=== PATIENT | male | born 1970 | race Caucasian/White ===

== ENCOUNTER 2017-11-19 17:45 | Inpatient (IN) | payer MEDICARE, SELFPAY ==
[2017-11-19] VITALS (14 sets, daily range): BP systolic 142–222; BP diastolic 83–131; PULSE 84–100; RESP 13–20; TEMP 36.9–37; O2SAT 95–100; BMI 32.8; BMI 32.9; BMI 33.0
--- NOTE | 2017-11-19 18:03 | CT_ITS ---
STUDY: CT BRAIN WITHOUT CONTRAST REASON FOR EXAM: Male, 46 years old. Headache and ringing in ears. RADIATION DOSAGE (If Supplied By Facility): CTDIvol = ( 44.99 ) mGy, DLP = ( 796.11 ) mGycm TECHNIQUE: Transaxial CT imaging of the brain was performed without administration of intravenous contrast material. Multiplanar reformations are submitted for interpretation. Individualized dose optimization techniques were used for this CT. COMPARISON: CT the head dated July 15, 2013. FINDINGS: There is radiopaque substance within the left globe, similar to the previous CT. The right orbit has a normal appearance. Normal calvarium. There is mild cerebral atrophy with widening of the extra-axial spaces and ventricular dilatation. There are areas of decreased attenuation within the white matter tracts of the supratentorial brain, consistent with microvascular disease changes. Normal basal ganglia and thalami. Normal brainstem. Normal cerebellum. There is no intracranial hemorrhage. There is patchy atherosclerotic calcification of intracranial arteries. There is mild mucoperiosteal thickening within the maxillary sinuses. CT/Brain/Head without Contrast IMPRESSION: 1. Chronic involutional changes of the brain. 2. No CT evidence of acute intracranial hemorrhage. Electronically Signed: Neli Mariscal MD at 19:08 EDT , Service support ,
--- NOTE | 2017-11-19 18:03 | EKG12_ITS ---
Test Reason : HTN Blood Pressure : / mmHG Vent. Rate : 097 BPM Atrial Rate : 097 BPM P-R Int : 174 ms QRS Dur : 102 ms QT Int : 380 ms P-R-T Axes : 042 -12 064 degrees QTc Int : 482 ms Sinus rhythm with frequent Premature ventricular complexes Otherwise normal ECG Confirmed by IBRAHIMA NORTON, MITCHELL ([id number]), subeditor TOBY WATSON ([id number]) on 11/22/2017 1:31:44 PM Referred By: KEESHA Confirmed By:MITCHELL ALEXANDRA MD
[2017-11-19] MEDS: Metoprolol Tartrate 25 MG Tablet PO (18:21)
[2017-11-19 18:23] LABS: Absolute Lymphocyte Count 1.38 X10^3/ul (0.83-4.51); Absolute Neutrophil Count 3.6 X10^3/uL (2.0-7.7); Basophil# 0.02 X10^3/uL; Basophil% 0.4 % (0-1); Eosinophil# 0.03 X10^3/uL; Eosinophils% 0.6 % (0-5); Hematocrit 32.9 % (40-54); Hemoglobin 11.7 g/dl (13.0-16.5); Lymphocyte # 1.38 X10^3/ul (4.0); Lymphocyte % 26.3 % (19-41); Mean Corp Hgb Conc 35.6 g/gl (32-36); Mean Corpuscular Hgb 29.3 pg (27.0-32.0); Mean Corpuscular Volume 82.3 fL (80-94); Mean Platelet Vol. 9.1 fl (6.2-12.0); Monocyte# 0.24 X10^3/uL; Monocyte% 4.6 % (0-10); Neutrophil # 3.57 X10^3/uL (2.7-7.7); Neutrophil % 68.1 % (47-70); POSITIVE COUNT NO; POSITIVE DIFFERENTIAL NO; POSITIVE MORPHOLOGY NO; Platelet Count 203 K/mm3 (150-450); RBC Distribution Width CV 12.6 % (11.6-14.6); RBC Distribution Width SD 37.9 fl (35.1-43.9); White Blood Count 5.2 K/mm3 (4.4-11.0)
[2017-11-19 18:26] LABS: Bedside Glucose 363 mg/dL (70-110)
--- NOTE | 2017-11-19 18:30 | RAD_ITS ---
STUDY: X-RAY CHEST REASON FOR EXAM: Male, 46 years old. Hypertension. TECHNIQUE: Single AP portable view of the chest. COMPARISON: April 23, 2014. FINDINGS: Cardiac monitoring leads are present. The lungs are expanded. There is mild interstitial thickening present in both lungs. There is no demonstrated pleural abnormality. Normal size heart. There are calcified mediastinal and hilar lymph nodes. There is prominence of the pulmonary hilar arteries with peripheral pulmonary vascular congestion. There is atherosclerotic tortuosity of the aortic arch and descending thoracic aorta. Normal visualized thoracic spine. Normal visualized ribs, clavicles, and shoulders. There is no demonstrated abnormality of the visualized soft tissue structures of the upper abdomen. RAD/Chest 1 View IMPRESSION: Mild pulmonary congestion. Differential considerations include acute exacerbation of reactive airway disease or viral infection. Electronically Signed: Neli Mariscal MD at 19:19 EDT , Service support ,
[2017-11-19] MEDS: Lisinopril 40 MG Tablet PO (18:40)
[2017-11-19 18:45] LABS: Anion Gap 6 (5-15); BUN 37 mg/dL (7-18); Chloride 106 mmol/L (98-107); Creatinine, Serum 2.47 mg/dL (0.70-1.30); EST Glomerular Filtration Rate 30 mL/min (>60); Est Glom Filt Rate - Afr Amer 36 mL/min (>60); Estimated Creatinine Clearance 35.38 ml/min; Glucose 359 mg/dL (74-106); Potassium 3.4 mmol/L (3.5-5.1); Sodium Level 140 mmol/L (136-145)
[2017-11-19 19:31] LABS: Bedside Glucose 281 mg/dL (70-110)
--- NOTE | 2017-11-19 19:49 | PCM.HP.STD ---
Problem List (1) HTN (hypertension) Status: Chronic Qualifiers: Hypertension type: essential hypertension Qualified Code(s): I10 - Essential (primary) hypertension (2) HLD (hyperlipidemia) Status: Chronic Qualifiers: Hyperlipidemia type: unspecified Qualified Code(s): E78.5 - Hyperlipidemia, unspecified (3) Blind left eye Status: Chronic (4) Diabetes mellitus type II, uncontrolled Status: Chronic Qualifiers: Diabetes mellitus web programmer insulin use: with web programmer use Diabetes mellitus complication status: with unspecified complications Qualified Code(s): E11.8 - Type 2 diabetes mellitus with unspecified complications; E11.65 - Type 2 diabetes mellitus with hyperglycemia; Z79.4 - skilled nursing (current) use of insulin (5) Neuropathy Status: Chronic (6) Obesity (BMI 30.0-34.9) Status: Chronic (7) Anxiety and depression Status: Chronic (8) GERD (gastroesophageal reflux disease) Status: Chronic Qualifiers: Esophagitis presence: esophagitis presence not specified Qualified Code(s): K21.9 - Gastro-esophageal reflux disease without esophagitis (9) Chewing tobacco nicotine dependence Status: Chronic Qualifiers: Substance use status: unspecified nicotine-induced disorder Qualified Code(s): F17.229 - Nicotine dependence, chewing tobacco, with unspecified nicotine-induced disorders (10) Hypertensive emergency Status: Acute (11) CHF (congestive heart failure) Status: Acute Qualifiers: Heart failure type: unspecified Heart failure chronicity: acute Qualified Code(s): I50.9 - Heart failure, unspecified (12) ILDA (acute kidney injury) Status: Acute (13) CKD (chronic kidney disease) stage 3, GFR 30-59 ml/min Status: Chronic History of Present Illness Date of Admission: 11/19/17 Chief Complaint: Exertional Dyspnea, LE Edema, Fatigue, Elevated BP, Headaches The patient is a 46 y/o M w/ PMHx: HTN, HLD, Uncontrolled Diabetes mellitus type II with Neurology, CKD stage III (prior Cr 1.9), Chew Tobacco use, History of L Retinal Tear s/p attempted repair now Chronically Blind, Obesity, Anxiety and Depression, GERD who presents to the [facility] ED on 11/19/17 with history of ongoing uncontrolled blood pressures (~200/100 frequently), elevated BS (300-400 range), headaches, vision changes, ringing BL ears intermittently, worsened over the last week in addition to BL LE pitting edema to his knees, weight gain and exertional dyspnea and orthopnea worsening over the last ~ 1 week. He admits to not taking his medications and not following a diabetic diet. He notes recently being at his PCP office. In the ED work-up included AF, HR 80s, BP 205/121-->190/112 after being given his home BB and lisinopril in the ED, RR 14, 100% on RA, CBC w/ WBC 5.2, HGB 11.7, Plts 203 without shift, BMP with K 3.4, BUN/Cr 37/2.47 (noted worsened fx 05/29/17 Cr 1.9), glucose 359, trop 0.03, EKG with SR with PVC, CT brain without acute findings, CXR with mild congestion. In the ED patient administered insulin aspart 10 u SC x 1, lisinopril 40 mg po x 1, metoprolol 25 mg po x 1, NS 2L x 1. Past Medical History Past Medical History (Chronic Problems): Chronic Problems HTN (hypertension) (Chronic) HLD (hyperlipidemia) (Chronic) Blind left eye (Chronic) Diabetes mellitus type II, uncontrolled (Chronic) Neuropathy (Chronic) Obesity (BMI 30.0-34.9) (Chronic) Anxiety and depression (Chronic) GERD (gastroesophageal reflux disease) (Chronic) Chewing tobacco nicotine dependence (Chronic) CKD (chronic kidney disease) stage 3, GFR 30-59 ml/min (Chronic) Leg edema, right (Chronic) Malnutrition (Chronic) Diabetes mellitus with neuropathy (Chronic) Type II diabetes mellitus (Chronic) History of acute myocardial infarction (Chronic) Allergies No Known Allergies Allergy (Verified 11/19/17 17:48) Home Medications: Ambulatory Orders Medication Instructions Recorded Gabapentin [Neurontin] 600 mg PO TIDCM 07/15/13 Insulin Glargine [Lantus SoloStar 75 units SC QHS 07/15/13 Pen] Amlodipine [Norvasc] 5 mg PO DAILY 05/06/17 Bupropion HCl [Wellbutrin Xl] 300 mg PO DAILY 05/06/17 Hydrochlorothiazide [Hctz] 25 mg PO DAILY 05/06/17 Insulin Aspart [Novolog Flexpen 15 units SC BIDCM 05/06/17 ([facility])] Lisinopril [Zestril] 40 mg PO DAILY 05/06/17 Aspirin 81 mg PO DAILY 11/19/17 Atorvastatin Calcium [Lipitor] 20 mg PO DAILY 11/19/17 Metoprolol Tartrate [Lopressor 25 mg PO BID 11/19/17 ([facility] el[facility])] Ranitidine [Zantac] 300 mg PO DAILY 11/19/17 Surgical History: - - Cholecystectomy, left retinal tear repair attempts, right eye laser surgery. Psychiatric History: Anxiety, Depression Lives: Spouse/ Significant Other Smoking Status: Never smoker Tobacco Use: Chew - 2-3 can/q 2 days. Alcohol: Rare Drugs: None - *Family History Maternal History Items: Heart Disease Paternal History Items: Cancer - Father w/ Colon CA. Review of Systems Constitutional: Reports: Malaise, Weakness, Fatigue. Denies: Chills, Fever, Weight Change HEENT: Reports: Head Aches, Hearing Changes, Visual Changes. Denies: Sinus Congestion, Sinus Drainage Cardiovascular: Reports: Edema, Orthopnea. Denies: Chest Pain, Palpitations Respiratory: Reports: Cough, Shortness of breath upon exertion. Denies: Shortness of breath at rest, Sputum production Gastrointestinal: Denies: Abdominal Pain, Nausea, Vomiting Genitourinary: Denies: Dysuria Musculoskeletal: Denies: Joint Pain, Joint Tenderness Skin: Denies: Rash, Wounds Neurological: Denies: Numbness, Tingling, Focal weakness Psychiatric: Reports: Anxiety, Depression. Denies: Homicidal Ideations, Suicidal Ideations Hematologic/ Lymphatic: Denies: Easy Bruising, Easy Bleeding VTE Information - Inpt Only VTE Present on Admission: No VTE Mechan Device Prophylaxis: SCD's VTE Pharm Prophylaxis ordered?: Yes Patient Problems: Active and Suspected Problems Hypertensive emergency (Acute) CHF (congestive heart failure) (Acute) ILDA (acute kidney injury) (Acute) Subjective: Seated upright in the ED bed, fatigued, NAD otherwise. Objective: Physical Examination: General: awake, alert, oriented x 3 and cooperative, seated upright in the ED bed in no apparent distress. Skin: normal color, turgor, no icterus, cyanosis. HEENT: AT/NC, EOMI, R pupil reactive, L eye blind, non-reactive, mildly dry MM, no carotid bruits, + JVD noted. Lungs: Diminished BS BL, > bases, moderate effort, minimal R>L bases crackles, no ronchi or wheezing. Heart: Regular rate and rhythm; no gallop, rub audible. Abdomen: soft, obese, NTTP, ND, normal BS, no HSM. Extremities: no cyanosis, clubbing, BL LE ankle to knee 2-3+ pitting edema. Neurological: patient awake, alert, oriented x 3; cognitive function intact; L pupil reactive to light; cranial nerves II-XII grossly normal aside noted L eye blindness, moving all 4 extremities, no focal deficits, strength moderately globally decreased secondary to acute presentation. Psychiatric: affect appears normal, no acute evidence of depressive or anxiety feelings. - Physical Exam Vital Signs Temp Pulse Resp BP Pulse Ox 98.6 F 87 17 207/97 H 100 11/19/17 17:46 11/19/17 19:46 11/19/17 19:46 11/19/17 19:46 11/19/17 19:46 Oxygen Flow Rate (L/min) 2 Oxygen Delivery Method Nasal Cannula Weight: 216 lb Body Mass Index (BMI) 32.8 Finger Stick Blood Glucose 281 Laboratory Tests Past 24 Hrs 11/19/17 11/19/17 18:15 18:15 WBC 5.2 RBC 4.00 L Hgb 11.7 L Hct 32.9 L MCV 82.3 MCH 29.3 MCHC 35.6 RDW 12.6 RDW Differential 37.9 Plt Count 203 MPV 9.1 Immature Gran % (Auto) 0.000 Neut % (Auto) 68.1 Lymph % (Auto) 26.3 [place] % (Auto) 4.6 Eos % (Auto) 0.6 Baso % (Auto) 0.4 Absolute Neuts (auto) 3.6 Absolute Lymphs (auto) 1.38 Total Counted Not Reportable Sodium 140 Potassium 3.4 L Chloride 106 Carbon Dioxide 28.0 Anion Gap 6 BUN 37 H Creatinine 2.47 H Estim Creat Clear Calc 35.38 Est GFR (MDRD) Af Amer 36 L Est GFR (MDRD) Non-Af 30 L BUN/Creatinine Ratio 15.0 Glucose 359 H Calcium 8.0 L Troponin I 0.03 POC Glucose 11/19/17 11/19/17 19:21 18:14 POC Glucose 281 H 363 H Assessment/Plan Active and Suspected Problems Hypertensive emergency (Acute) CHF (congestive heart failure) (Acute) ILDA (acute kidney injury) (Acute) The patient is a 46 y/o M w/ PMHx: HTN, HLD, Uncontrolled Diabetes mellitus type II with Neurology, CKD stage III , Chew Tobacco use, History of L Retinal Tear s/p attempted repair now Chronically Blind, Obesity, Anxiety and Depression, GERD who presents to the [facility] ED on 11/19/17 with history of ongoing uncontrolled blood pressures, elevated BS, headaches, vision changes, ringing BL ears intermittently, worsened over the last week in addition to BL LE pitting edema to his knees, weight gain and exertional dyspnea and orthopnea worsening over the last ~ 1 week. (1) Acute Decompensated CHF, Unclear type, secondary to Uncontrolled HTN, HTN emergency: CXR obtained in the ED w/ congestion. Given elevated BPs, admitted to the ICU in order to titrate regimen as noted, will maintain on cardiac telemetry obtain cardiac enzyme series, obtain serial EKGs, initiation and continue IV lasix diuresis, monitor I/Os, maintain on intake restriction, continue medical therapy w/ IV NG with titration as needed, asa, statin, holding ACEI, holding BB pending ECHO. Will obtain TSH and magnesium level. (2) Hypertensive Emergency: Acute CHF secondary to Acute Hypertensive Emergency: As noted, given severity of appearing, admitting to the ICU to initiate NG IV, titrate as needed, PRN hydralazine, defer BB pending improvement and ECHO, holding ACEI secondary to concurrent worsened renal disease secondary to HTN. (3) Acute kidney injury on CKD stage III Suspected per Labs: Secondary to #1,#2. Admission BUN/Cr 37/2.47, prior baseline creatinine noted to be 1.9 05/2017. Given secondary to uncontrolled HTN, hopefully expect improvement with improved HTN, as noted given 2L in the ED and ACEI home regimen, will hold on further hydration with diuresis as noted above, hold ACEI. If no improvement with treatment #1, #2, would plan FeNa assessment and renal US. (4) Diabetes mellitus type II, Uncontrolled with Neurology: Hold oral home regimen, alter home insulin regimen, change to 35 u levemir BID, likely increase as needed, HgbA1c pending, ADA diet, accu checks w/ ISS, nutrition consulted for education and teaching. (5) Hyperlipidemia: Continue home statin regimen. AM FLP. (6) Anxiety and Depression: Continue home psychiatric regimen. (7) GERD: Holding agent given worsened renal disease. (8) History of L Retinal Tear s/p attempted repair: Now blind L eye, stable. (9) Chew Tobacco use: Encouraged cessation, inpatient consultation per RT, NR if desired. (10) Obesity: Weight loss and lifestyle changes encouraged. (11) DVT Prophylaxis: SCDs, heparin. Code Visit Inpatient E&M: 00305 Init Hosp L3
--- NOTE | 2017-11-19 19:52 | HP.PCM_ITS ---
Problem List (1) HTN (hypertension) Status: Chronic Qualifiers: Hypertension type: essential hypertension Qualified Code(s): I10 - Essential (primary) hypertension (2) HLD (hyperlipidemia) Status: Chronic Qualifiers: Hyperlipidemia type: unspecified Qualified Code(s): E78.5 - Hyperlipidemia , unspecified (3) Blind left eye Status: Chronic (4) Diabetes mellitus type II, uncontrolled Status: Chronic Qualifiers: Diabetes mellitus nursing home insulin use: with nursing home use Diabetes mellitus complication status: with unspecified complications Qualified Code(s) : E11.8 - Type 2 diabetes mellitus with unspecified complications; E11.65 - Type 2 diabetes mellitus with hyperglycemia; Z79.4 - shelter (current) use of insulin (5) Neuropathy Status: Chronic (6) Obesity (BMI 30.0-34.9) Status: Chronic (7) Anxiety and depression Status: Chronic (8) GERD (gastroesophageal reflux disease) Status: Chronic Qualifiers: Esophagitis presence: esophagitis presence not specified Qualified Code(s) : K21.9 - Gastro-esophageal reflux disease without esophagitis (9) Chewing tobacco nicotine dependence Status: Chronic Qualifiers: Substance use status: unspecified nicotine-induced disorder Qualified Code( s): F17.229 - Nicotine dependence, chewing tobacco, with unspecified nicotine- induced disorders (10) Hypertensive emergency Status: Acute (11) CHF (congestive heart failure) Status: Acute Qualifiers: Heart failure type: unspecified Heart failure chronicity: acute Qualified Code(s): I50.9 - Heart failure, unspecified (12) ILDA (acute kidney injury) Status: Acute (13) CKD (chronic kidney disease) stage 3, GFR 30-59 ml/min Status: Chronic History of Present Illness Date of Admission: 11/19/17 Chief Complaint: Exertional Dyspnea, LE Edema, Fatigue, Elevated BP, Headaches The patient is a 46 y/o M w/ PMHx: HTN, HLD, Uncontrolled Diabetes mellitus type II with Neurology, CKD stage III (prior Cr 1.9), Chew Tobacco use, History of L Retinal Tear s/p attempted repair now Chronically Blind, Obesity, Anxiety and Depression, GERD who presents to the [facility] ED on 11/19/17 with history of ongoing uncontrolled blood pressures (~200/100 frequently), elevated BS (300- 400 range), headaches, vision changes, ringing BL ears intermittently, worsened over the last week in addition to BL LE pitting edema to his knees, weight gain and exertional dyspnea and orthopnea worsening over the last ~ 1 week. He admits to not taking his medications and not following a diabetic diet. He notes recently being at his PCP office. In the ED work-up included AF, HR 80s, BP 205/121-->190/112 after being given his home BB and lisinopril in the ED, RR 14, 100% on RA, CBC w/ WBC 5.2, HGB 11.7, Plts 203 without shift, BMP with K 3.4 , BUN/Cr 37/2.47 (noted worsened fx 05/29/17 Cr 1.9), glucose 359, trop 0.03, EKG with SR with PVC, CT brain without acute findings, CXR with mild congestion. In the ED patient administered insulin aspart 10 u SC x 1, lisinopril 40 mg po x 1, metoprolol 25 mg po x 1, NS 2L x 1. Past Medical History Past Medical History (Chronic Problems): Chronic Problems HTN (hypertension) (Chronic) HLD (hyperlipidemia) (Chronic) Blind left eye (Chronic) Diabetes mellitus type II, uncontrolled (Chronic) Neuropathy (Chronic) Obesity (BMI 30.0-34.9) (Chronic) Anxiety and depression (Chronic) GERD (gastroesophageal reflux disease) (Chronic) Chewing tobacco nicotine dependence (Chronic) CKD (chronic kidney disease) stage 3, GFR 30-59 ml/min (Chronic) Leg edema, right (Chronic) Malnutrition (Chronic) Diabetes mellitus with neuropathy (Chronic) Type II diabetes mellitus (Chronic) History of acute myocardial infarction (Chronic) Allergies No Known Allergies Allergy (Verified 11/19/17 17:48) Home Medications: Ambulatory Orders Medication Instructions Recorded Gabapentin [Neurontin] 600 mg PO TIDCM 07/15/13 Insulin Glargine [Lantus SoloStar 75 units SC QHS 07/15/13 Pen] Amlodipine [Norvasc] 5 mg PO DAILY 05/06/17 Bupropion HCl [Wellbutrin Xl] 300 mg PO DAILY 05/06/17 Hydrochlorothiazide [Hctz] 25 mg PO DAILY 05/06/17 Insulin Aspart [Novolog Flexpen 15 units SC BIDCM 05/06/17 ([facility])] Lisinopril [Zestril] 40 mg PO DAILY 05/06/17 Aspirin 81 mg PO DAILY 11/19/17 Atorvastatin Calcium [Lipitor] 20 mg PO DAILY 11/19/17 Metoprolol Tartrate [Lopressor 25 mg PO BID 11/19/17 ([facility] el[facility])] Ranitidine [Zantac] 300 mg PO DAILY 11/19/17 Surgical History: - - Cholecystectomy, left retinal tear repair attempts, right eye laser surgery. Psychiatric History: Anxiety, Depression Lives: Spouse/ Significant Other Smoking Status: Never smoker Tobacco Use: Chew - 2-3 can/q 2 days. Alcohol: Rare Drugs: None - *Family History Maternal History Items: Heart Disease Paternal History Items: Cancer - Father w/ Colon CA. Review of Systems Constitutional: Reports: Malaise, Weakness, Fatigue. Denies: Chills, Fever, Weight Change HEENT: Reports: Head Aches, Hearing Changes, Visual Changes. Denies: Sinus Congestion, Sinus Drainage Cardiovascular: Reports: Edema, Orthopnea. Denies: Chest Pain, Palpitations Respiratory: Reports: Cough, Shortness of breath upon exertion. Denies: Shortness of breath at rest, Sputum production Gastrointestinal: Denies: Abdominal Pain, Nausea, Vomiting Genitourinary: Denies: Dysuria Musculoskeletal: Denies: Joint Pain, Joint Tenderness Skin: Denies: Rash, Wounds Neurological: Denies: Numbness, Tingling, Focal weakness Psychiatric: Reports: Anxiety, Depression. Denies: Homicidal Ideations, Suicidal Ideations Hematologic/ Lymphatic: Denies: Easy Bruising, Easy Bleeding VTE Information - Inpt Only VTE Present on Admission: No VTE Mechan Device Prophylaxis: SCD's VTE Pharm Prophylaxis ordered?: Yes Patient Problems: Active and Suspected Problems Hypertensive emergency (Acute) CHF (congestive heart failure) (Acute) ILDA (acute kidney injury) (Acute) Subjective: Seated upright in the ED bed, fatigued, NAD otherwise. Objective: Physical Examination: General: awake, alert, oriented x 3 and cooperative, seated upright in the ED bed in no apparent distress. Skin: normal color, turgor, no icterus, cyanosis. HEENT: AT/NC, EOMI, R pupil reactive, L eye blind, non-reactive, mildly dry MM, no carotid bruits, + JVD noted. Lungs: Diminished BS BL, > bases, moderate effort, minimal R>L bases crackles, no ronchi or wheezing. Heart: Regular rate and rhythm; no gallop, rub audible. Abdomen: soft, obese, NTTP, ND, normal BS, no HSM. Extremities: no cyanosis, clubbing, BL LE ankle to knee 2-3+ pitting edema. Neurological: patient awake, alert, oriented x 3; cognitive function intact; L pupil reactive to light; cranial nerves II-XII grossly normal aside noted L eye blindness, moving all 4 extremities, no focal deficits, strength moderately globally decreased secondary to acute presentation. Psychiatric: affect appears normal, no acute evidence of depressive or anxiety feelings. - Physical Exam Vital Signs Temp Pulse Resp BP Pulse Ox 98.6 F 87 17 207/97 H 100 11/19/17 17:46 11/19/17 19:46 11/19/17 19:46 11/19/17 19:46 11/19/17 19:46 Oxygen Flow Rate (L/min) 2 Oxygen Delivery Method Nasal Cannula Weight: 216 lb Body Mass Index (BMI) 32.8 Finger Stick Blood Glucose 281 Laboratory Tests Past 24 Hrs 11/19/17 11/19/17 18:15 18:15 WBC 5.2 RBC 4.00 L Hgb 11.7 L Hct 32.9 L MCV 82.3 MCH 29.3 MCHC 35.6 RDW 12.6 RDW Differential 37.9 Plt Count 203 MPV 9.1 Immature Gran % (Auto) 0.000 Neut % (Auto) 68.1 Lymph % (Auto) 26.3 Levy % (Auto) 4.6 Eos % (Auto) 0.6 Baso % (Auto) 0.4 Absolute Neuts (auto) 3.6 Absolute Lymphs (auto) 1.38 Total Counted Not Reportable Sodium 140 Potassium 3.4 L Chloride 106 Carbon Dioxide 28.0 Anion Gap 6 BUN 37 H Creatinine 2.47 H Estim Creat Clear Calc 35.38 Est GFR (MDRD) Af Amer 36 L Est GFR (MDRD) Non-Af 30 L BUN/Creatinine Ratio 15.0 Glucose 359 H Calcium 8.0 L Troponin I 0.03 POC Glucose 11/19/17 11/19/17 19:21 18:14 POC Glucose 281 H 363 H Assessment/Plan Active and Suspected Problems Hypertensive emergency (Acute) CHF (congestive heart failure) (Acute) ILDA (acute kidney injury) (Acute) The patient is a 46 y/o M w/ PMHx: HTN, HLD, Uncontrolled Diabetes mellitus type II with Neurology, CKD stage III , Chew Tobacco use, History of L Retinal Tear s/p attempted repair now Chronically Blind, Obesity, Anxiety and Depression , GERD who presents to the [facility] ED on 11/19/17 with history of ongoing uncontrolled blood pressures, elevated BS, headaches, vision changes, ringing BL ears intermittently, worsened over the last week in addition to BL LE pitting edema to his knees, weight gain and exertional dyspnea and orthopnea worsening over the last ~ 1 week. (1) Acute Decompensated CHF, Unclear type, secondary to Uncontrolled HTN, HTN emergency: CXR obtained in the ED w/ congestion. Given elevated BPs, admitted to the ICU in order to titrate regimen as noted, will maintain on cardiac telemetry obtain cardiac enzyme series, obtain serial EKGs, initiation and continue IV lasix diuresis, monitor I/Os, maintain on intake restriction, continue medical therapy w/ IV NG with titration as needed, asa, statin, holding ACEI, holding BB pending ECHO. Will obtain TSH and magnesium level. (2) Hypertensive Emergency: Acute CHF secondary to Acute Hypertensive Emergency : As noted, given severity of appearing, admitting to the ICU to initiate NG IV , titrate as needed, PRN hydralazine, defer BB pending improvement and ECHO, holding ACEI secondary to concurrent worsened renal disease secondary to HTN. (3) Acute kidney injury on CKD stage III Suspected per Labs: Secondary to #1,# 2. Admission BUN/Cr 37/2.47, prior baseline creatinine noted to be 1.9 05/2017. Given secondary to uncontrolled HTN, hopefully expect improvement with improved HTN, as noted given 2L in the ED and ACEI home regimen, will hold on further hydration with diuresis as noted above, hold ACEI. If no improvement with treatment #1, #2, would plan FeNa assessment and renal US. (4) Diabetes mellitus type II, Uncontrolled with Neurology: Hold oral home regimen, alter home insulin regimen, change to 35 u levemir BID, likely increase as needed, HgbA1c pending, ADA diet, accu checks w/ ISS, nutrition consulted for education and teaching. (5) Hyperlipidemia: Continue home statin regimen. AM FLP. (6) Anxiety and Depression: Continue home psychiatric regimen. (7) GERD: Holding agent given worsened renal disease. (8) History of L Retinal Tear s/p attempted repair: Now blind L eye, stable. (9) Chew Tobacco use: Encouraged cessation, inpatient consultation per RT, NR if desired. (10) Obesity: Weight loss and lifestyle changes encouraged. (11) DVT Prophylaxis: SCDs, heparin. Code Visit Inpatient E&M: 05915 Init Hosp L3
--- NOTE | 2017-11-19 20:09 | ED.DCSUM_ITS ---
- ER Visit Summary Date of Service: 11/19/17 Chief Complaint: High blood pressure and high blood glucose History of Present Illness: The patient is a 46 M presenting to the emergency department from urgent care secondary to elevated blood pressure and glucose. Patient has an underlying history diabetes hypertension high cholesterol for which he is noncompliant with his medications. Patient states that he woke up today and noticed that he was having decreased hearing right worse than left with tinnitus in the ears bilaterally. Patient states that he did not take any of his morning medications. He states that his blood sugars have been running in the 3 and 400s over the course of the last month. Patient presented to urgent care, was noted to have blood pressures in the 200s, as well as blood sugar that was significantly elevated and was recommended to come to the emergency department. Patient states that he intermittently has some visual changes nothing new. Denies any numbness or weakness. He does endorse that he is having some lower extremity edema and exertional dyspnea. Review of systems otherwise negative. Physical Examination: Vital signs notable blood pressure 222/111. Obese male no acute distress. Right eye PRL, EOMI, left eye she is status post retinal detachment. TMs normal bilaterally. Dry mucous membranes with tobacco staining noted. Neck supple. Heart regular rate and rhythm. Lungs sounds clear. Abdomen soft nontender. Extremities show 2+ pitting edema bilaterally. Patient is alert and oriented. NIH stroke scale is 0. Test Results: EKG shows sinus rhythm at 97 with frequent PVCs nonspecific T- wave flattening. Frequent PVCs are changed from prior EKG where they were not present. CBC unremarkable, chemistry shows hyperglycemia with acute kidney injury creatinine 2.47 with patient's highest creatinine being 1.8. Troponin negative. Chest x-ray does show some pulmonary vascular congestion. CT brain shows chronic changes. Emergency Department Course and Treatment: Patient presented secondary to difficulty hearing high blood pressure high glucose. IV was established patient was given 10 units of insulin and 2 L normal saline. Give the patient is home doses of lisinopril and metoprolol his blood pressure did improve to 205 /97. Patient's workup showed evidence of likely cardiac strain due to uncontrolled hypertension as well as acute kidney injury and hyperglycemia. I believe that the patient requires admission for this. I discussed this with the hospitalist. Disposition: Admission Impression: 1. Uncontrolled hypertension 2. Congestive heart failure 3. Acute kidney injury 4. Hyperglycemia 5. Medication noncompliance This note was generated with [employer] dictation software. It may contain incorrect words, spelling, and punctuation that were not noted in review of the chart prior to signing ED Disposition - Plan for ED Patient: Chief Complaint: General Illness Referrals: Zaida Mcneil MD [Primary Care Provider] -
[2017-11-19] MEDS: Nitroglycerin Infusion 250 ML 6 MG IV (21:46)
[2017-11-19] MEDS: 0.9% NaCl Peripheral Flush Adult/Peds IV ×2 (21:47→22:02)
[2017-11-19] MEDS: Furosemide 40 MG/4 ML Vial IV (21:51)
[2017-11-19] MEDS: Atorvastatin Calcium 20 MG Tablet PO (21:51)
[2017-11-19 22:21] LABS: Bedside Glucose 190 mg/dL (70-110)
[2017-11-19 22:58] LABS: Magnesium 1.9 mg/dL (1.6-2.6); Thyroid Stim Hormone (TSH) 3.13 uIU/mL (0.358-3.74)
[2017-11-19 23:04] LABS: Hemoglobin A1c 10.5 % (4.2-6.3)
[2017-11-19 23:10] LABS: Probe Check PASS
[2017-11-19 23:12] LABS: M R Staph aureus DNA By PCR POSITIVE (Negative)
[2017-11-20] VITALS (41 sets, daily range): BP systolic 120–171; BP diastolic 53–98; PULSE 77–99; RESP 12–25; TEMP 36.5–37.5; O2SAT 91–98
[2017-11-20] MEDS: 0.9% NaCl Peripheral Flush Adult/Peds IV ×3 (01:38→21:24)
[2017-11-20] MEDS: oxyCODONE 5 MG Tablet PO (03:25)
[2017-11-20] MEDS: Furosemide 40 MG/4 ML Vial IV ×3 (05:34→21:15)
--- NOTE | 2017-11-20 05:55 | EKG12_ITS ---
Test Reason : AM EKG Blood Pressure : / mmHG Vent. Rate : 089 BPM Atrial Rate : 089 BPM P-R Int : 168 ms QRS Dur : 100 ms QT Int : 398 ms P-R-T Axes : 028 -10 084 degrees QTc Int : 484 ms Sinus rhythm with Premature supraventricular complexes Otherwise normal ECG When compared with ECG of 23-APR-2014 08:31, Premature supraventricular complexes are now Present Confirmed by IBRAHIMA NORTON, MITCHELL ([id number]), health editor TOBY WATSON ([id number]) on 11/22/2017 1:55:11 PM Referred By: ZEUS Confirmed By:MITCHELL ALEXANDRA MD
--- NOTE | 2017-11-20 05:55 | ECHOD_ITS ---
Reason For Study: CHF Procedure This was a 2D Doppler, Color Flow transthoracic echocardiogram. Exam performed portable in ICU/CCU. Left Ventricle Moderate concentric left ventricular hypertrophy. The estimated ejection fraction is 65 %. No regional wall motion abnormalities noted. Right Ventricle Normal size and thickness. Normal systolic function. Atria Normal left atrium. Normal right atrium. Saline contrast study demonstrates trivial right to left interatrial shunt. Hypermobile atrial septum. Mitral Valve The mitral valve is structurally normal. No prolapse or stenosis seen. Tricuspid Valve Normal tricuspid valve. Unable to estimate RV systolic pressure/pulmonary artery pressure due to technically difficult study. Aortic Valve Normal aortic valve. Trisinus/trileaflet aortic valve. Pulmonic Valve Normal pulmonic valve. Great Vessels Normal aortic root. Normal arch. Normal inferior vena cava. Inferior vena cava collapse with sniff. Pericardium/Pleural Small pericardial effusion. Fibrinous strands. There are no echocardiographic indications of cardiac tamponade. Medication Performed a rapid injection of agitated mix of 9 cc saline and 1cc air to assess for atrial septal defect. MMode/2D Measurements & Calculations LVIDd: 3.9 cm IVSd: 1.6 cm Ao root diam: 2.8 cm LVIDs: 2.5 cm LVPWd: 1.7 cm LA dimension: 4.4 cm RVDd: 2.8 cm FS: 35.6 % LAV(MOD-bp): 57.1 ml LA A4 area: 17.5 cm2 RA A4 area: 14.0 cm2 LAV(MOD-bp) Indexed: 27.1 ml/m2 LAV(MOD-sp2): 53.6 ml LAV(MOD-sp4): 55.4 ml Doppler Measurements & Calculations MV E max mariano: 84.5 cm/sec Lat Peak E' Mariano: 8.0 cm/sec Med Peak E' Mariano: 4.7 cm/sec MV A max mariano: 124.5 cm/sec E/E' lat: 10.6 E/E' med: 17.9 MV E/A: 0.68 Ao V2 max: 144.2 cm/sec LV V1 max: 123.3 cm/sec PA V2 max: 148.7 cm/sec Ao max P.3 mmHg LV V1 max P.1 mmHg Interpretation Summary Moderate concentric left ventricular hypertrophy. The estimated ejection fraction is 65 %. Saline contrast study demonstrates trivial right to left interatrial shunt. Unable to estimate RV systolic pressure/pulmonary artery pressure due to technically difficult study. Small anterior pericardial effusion. Fibrinous strands located on epicardial surface of RV; possible epicardial fat. There are no echocardiographic indications of cardiac tamponade. Compared to echo report dated 06/25/2011, LV function has remained the same. Small anterior pericardial effusion without tamponade noted on today's exam. Ordering Physician: Isamar Smith Referring Physician: Zaida Mcneil Performed By: Cherri Marie RDCS
[2017-11-20 06:08] LABS: Hematocrit 28.9 % (40-54); Hemoglobin 10.3 g/dl (13.0-16.5); Mean Corp Hgb Conc 35.6 g/gl (32-36); Mean Corpuscular Hgb 29.9 pg (27.0-32.0); Mean Corpuscular Volume 83.8 fL (80-94); Mean Platelet Vol. 10.6 fl (6.2-12.0); Platelet Count 205 K/mm3 (150-450); RBC Distribution Width CV 12.9 % (11.6-14.6); RBC Distribution Width SD 37.3 fl (35.1-43.9); Red Blood Count 3.45 M/mm3 (4.6-6.2)
[2017-11-20 06:12] LABS: Scan Indicated on CBC? Y/N NO
[2017-11-20 06:51] LABS: Anion Gap 8 (5-15); BUN 42 mg/dL (7-18); BUN/Creat Ratio 17.1 RATIO (10-20); Calcium,Total 7.9 mg/dL (8.5-10.1); Chloride 110 mmol/L (98-107); Cholesterol 284 mg/dL (200); Creatinine, Serum 2.46 mg/dL (0.70-1.30); EST Glomerular Filtration Rate 30 mL/min (>60); Est Glom Filt Rate - Afr Amer 36 mL/min (>60); Estimated Creatinine Clearance 35.53 ml/min; Glucose 159 mg/dL (74-106); High Density Lipoprotein 43 mg/dL; Potassium 3.6 mmol/L (3.5-5.1); Sodium Level 143 mmol/L (136-145); Triglycerides 139 mg/dL; Very Low Density Lipoprotein 28 mg/dL (5-40)
--- NOTE | 2017-11-20 07:13 | CON.PCM_ITS ---
Reason for Consult Date of Consultation: 11/20/17 Reason for Consultation: Hypertensive emergency History of Present Illness: The patient is a 46-year-old male, with a history as outlined below, who presented to the emergency department on November 19 with complaints of high blood pressure readings and hyperglycemia. The patient is inherently noncompliant with the use of outpatient medications and is noncompliant with a diabetic diet. The patient reported the presence of ear fullness and ringing, along with a headache on the day of his presentation. He does routinely utilize smokeless tobacco. He states that his child has been sick recently and he has therefore been noncompliant with use of his home medication regimen. On presentation to the emergency department, the patient was noted to be tachycardic and hypotensive with a blood pressure reading of 209/131. He was initially maintaining appropriate oxygen saturations on room air. Laboratory evaluation revealed no evidence for leukocytosis. Chemistry profile was notable for a serum potassium of 3.4, along with evidence of acute kidney injury with a creatinine of 2.47. Glucose was elevated to 359 and the patient had a hemoglobin A1c noted to be 10.5. Troponin was negative. MRSA screen was positive. Head CT revealed chronic involutional changes without evidence of acute intracranial hemorrhage. Plain film chest x-ray revealed a mild degree of pulmonary vascular congestion. There is initial concern for hypertensive emergency leading to pulmonary edema and potential decompensated heart failure. The patient was subsequently started on a nitro drip and transferred to the medical intensive care unit for ongoing management. Past Medical History Past Medical History (Chronic Problems): Chronic Problems HTN (hypertension) (Chronic) HLD (hyperlipidemia) (Chronic) Blind left eye (Chronic) Diabetes mellitus type II, uncontrolled (Chronic) Neuropathy (Chronic) Obesity (BMI 30.0-34.9) (Chronic) Anxiety and depression (Chronic) GERD (gastroesophageal reflux disease) (Chronic) Chewing tobacco nicotine dependence (Chronic) CKD (chronic kidney disease) stage 3, GFR 30-59 ml/min (Chronic) Leg edema, right (Chronic) Malnutrition (Chronic) Diabetes mellitus with neuropathy (Chronic) Type II diabetes mellitus (Chronic) History of acute myocardial infarction (Chronic) Allergies No Known Allergies Allergy (Verified 11/19/17 17:48) Home Medications: Ambulatory Orders Medication Instructions Recorded Gabapentin [Neurontin] 600 mg PO TIDCM 07/15/13 Insulin Glargine [Lantus SoloStar 75 units SC QHS 07/15/13 Pen] Amlodipine [Norvasc] 5 mg PO DAILY 05/06/17 Bupropion HCl [Wellbutrin Xl] 300 mg PO DAILY 05/06/17 Hydrochlorothiazide [Hctz] 25 mg PO DAILY 05/06/17 Insulin Aspart [Novolog Flexpen 15 units SC BIDCM 05/06/17 ([facility])] Lisinopril [Zestril] 40 mg PO DAILY 05/06/17 Aspirin 81 mg PO DAILY 11/19/17 Atorvastatin Calcium [Lipitor] 20 mg PO DAILY 11/19/17 Metoprolol Tartrate [Lopressor 25 mg PO BID 11/19/17 (beta elizabeth)] Ranitidine [Zantac] 300 mg PO DAILY 11/19/17 Surgical History: - - Cholecystectomy, left retinal tear repair attempts, right eye laser surgery. Psychiatric History: Anxiety, Depression Lives: Spouse/ Significant Other Smoking Status: Never smoker Tobacco Use: Chew - 2-3 can/q 2 days. Alcohol: Rare Drugs: None - *Family History Maternal History Items: Heart Disease Paternal History Items: Cancer - Father w/ Colon CA. Review of Systems Constitutional: Denies: Chills, Fever, Weight Change Eyes: Reports: Blurred vision HEENT: Reports: Difficulty Hearing, Head Aches. Denies: Sinus Congestion, Sinus Drainage Cardiovascular: Denies: Chest Pain, Palpitations Respiratory: Denies: Cough, Shortness of breath at rest, Sputum production Gastrointestinal: Denies: Abdominal Pain, Nausea, Vomiting Genitourinary: Denies: Dysuria Musculoskeletal: Denies: Joint Pain, Joint Tenderness Skin: Denies: Rash, Wounds Neurological: Denies: Numbness, Tingling, Focal weakness Psychiatric: Denies: Anxiety, Depression, Homicidal Ideations, Suicidal Ideations Hematologic/ Lymphatic: Denies: Easy Bruising, Easy Bleeding Patient Problems: Active and Suspected Problems Hypertensive emergency (Acute) CHF (congestive heart failure) (Acute) ILDA (acute kidney injury) (Acute) Objective: The patient's most recent lab work, culture data and imaging studies have all been personally reviewed. - Physical Exam General: Alert, Cooperative, No apparent distress HEENT: Atraumatic, PERRLA, Normocephalic Oral: Moist Mucosa, No Gingival or Mucosal Lesions/ Ulcerations Neck: Supple, No Nodes, Trachea Midline Lungs: No rhonchi, No wheeze, No rales, Diminished Cardiovascular: Regular rate, Regular Rhythm, Normal S1, Normal S2, No murmurs, No rub noted, No Gallop Abdomen: Bowel Sounds Present, Soft, Non Tender, Obese Extremities: No clubbing, No cyanosis, Edema Skin: No rashes, No breakdown Musculoskeletal: No Muscle Wasting Lymphatic: No Cervical, Supraclavicular, or Inguinal Adenopathy Neurological: Neuro grossly intact Psych/Mental Status: Normal Affect, Appropriate Vital Signs Temp Pulse Resp BP Pulse Ox 99.1 F 85 12 153/81 H 95 11/20/17 04:00 11/20/17 06:00 11/20/17 06:00 11/20/17 06:00 11/20/17 06:00 Oxygen Delivery Method Room Air Weight: 214 lb 4.629 oz Body Mass Index (BMI) 32.9 Intake and Output for Last 24 Hours 11/18/17 11/19/17 11/20/17 23:59 23:59 23:59 Intake Total 250 / 250 278 / 278 Output Total 950 / 950 Balance -700 / -700 278 / 278 Laboratory Tests Past 24 Hrs 11/19/17 11/19/17 11/19/17 21:25 22:10 22:10 WBC RBC Hgb Hct MCV MCH MCHC RDW RDW Differential Plt Count MPV Sodium Potassium Chloride Carbon Dioxide Anion Gap BUN Creatinine Estim Creat Clear Calc Est GFR (MDRD) Af Amer Est GFR (MDRD) Non-Af BUN/Creatinine Ratio Glucose Calcium Magnesium 1.9 Troponin I 0.04 Triglycerides Cholesterol LDL Cholesterol VLDL Cholesterol HDL Cholesterol TSH 3.13 MRSA (PCR) POSITIVE H 11/20/17 11/20/17 11/20/17 01:40 05:45 05:45 WBC 7.0 RBC 3.45 L Hgb 10.3 L Hct 28.9 L MCV 83.8 MCH 29.9 MCHC 35.6 RDW 12.9 RDW Differential 37.3 Plt Count 205 MPV 10.6 Sodium Cancelled Potassium Cancelled Chloride Cancelled Carbon Dioxide Cancelled Anion Gap Cancelled BUN Cancelled Creatinine Cancelled Estim Creat Clear Calc Cancelled Est GFR (MDRD) Af Amer Cancelled Est GFR (MDRD) Non-Af Cancelled BUN/Creatinine Ratio Cancelled Glucose Cancelled Calcium Cancelled Magnesium Troponin I 0.03 Triglycerides Cancelled Cholesterol Cancelled LDL Cholesterol Cancelled VLDL Cholesterol Cancelled HDL Cholesterol Cancelled TSH MRSA (PCR) 11/20/17 06:25 WBC RBC Hgb Hct MCV MCH MCHC RDW RDW Differential Plt Count MPV Sodium 143 Potassium 3.6 Chloride 110 H Carbon Dioxide 25.0 Anion Gap 8 BUN 42 H Creatinine 2.46 H Estim Creat Clear Calc 35.53 Est GFR (MDRD) Af Amer 36 L Est GFR (MDRD) Non-Af 30 L BUN/Creatinine Ratio 17.1 Glucose 159 H Calcium 7.9 L Magnesium Troponin I Triglycerides 139 Cholesterol 284 H LDL Cholesterol 213 H VLDL Cholesterol 28 HDL Cholesterol 43 TSH MRSA (PCR) POC Glucose 11/19/17 22:04 POC Glucose 190 H Clinical Impression(s) from Imaging Studies Brain CT 11/19/17 18:03 IMPRESSION: 1. Chronic involutional changes of the brain. 2. No CT evidence of acute intracranial hemorrhage. Electronically Signed: Neli Mariscal MD at 19:08 EDT , Service support , Chest X-Ray 11/19/17 18:30 IMPRESSION: Mild pulmonary congestion. Differential considerations include acute exacerbation of reactive airway disease or viral infection. Electronically Signed: Neli Mariscal MD at 19:19 EDT , Service support , Assessment/Plan Active and Suspected Problems Hypertensive emergency (Acute) CHF (congestive heart failure) (Acute) ILDA (acute kidney injury) (Acute) RECOMMENDATIONS: 1. Continue to wean nitro drip as tolerated 2. Restart TOM inhibitor and beta-elizabeth at half dose. Upward titration is indicated. 3. Continue Levemir and sliding scale insulin coverage 4. Consider outpatient endocrinology follow-up 5. Nutrition to provide diabetic education 6. Wean supplemental oxygen to maintain saturations at or above 90%. Encourage incentive spirometer use and mobilize patient as tolerated. 7. Obtain baseline echocardiogram IMPRESSIONS: 1. Hypertensive emergency secondary to outpatient noncompliance The patient has been noncompliant with the use of his outpatient antihypertensive regimen, leading to his uncontrolled blood pressure parameters at presentation. He has been maintained on a nitro drip since admission. We will plan to restart his home TOM inhibitor and beta-elizabeth at half dose today. Wean nitro drip as tolerated. We will also plan to obtain baseline echocardiogram. Continue Lasix for now. 2. Uncontrolled diabetes mellitus Continue Levemir and sliding scale insulin coverage. The patient's hemoglobin A1c certainly indicates outpatient noncompliance. Nutrition to provide diabetic education. Consider referral to endocrinology for outpatient follow- up. 3. Acute on chronic kidney disease May be related to progression of his underlying medical renal disease. We will continue to monitor creatinine and urine output. No indication for renal replacement therapy at this time. Blood pressure control as noted above. 4. Hyperlipidemia/anxiety/depression/GERD/smokeless tobacco dependence/obesity Complicates care, management, recovery and prognosis. Okay to continue home medications from my perspective. Weight loss is suggested. This note was generated with [employer] dictation software. It may contain incorrect words, spelling, and punctuation that were not noted in checking the note before signing. Code Visit Inpatient E&M: 16970 Init Hosp L3
[2017-11-20] MEDS: Aspirin E.C. 81 MG Tablet PO (07:36)
--- NOTE | 2017-11-20 09:57 | CASEMGMT ---
See RN CM Assessment Link. Plan is for pt to return home and follow up with LETTY Adams december @ 10 am. Card given to patient and office will send him new pt packet to his home. Shy BERNARDO RN ACM
[2017-11-20] MEDS: Metoprolol Tartrate 25 MG Tablet PO ×2 (10:16→14:32)
[2017-11-20] MEDS: Lisinopril 20 MG Tablet PO (10:16)
--- NOTE | 2017-11-20 10:40 | CT_ITS ---
STUDY: CT ABDOMEN AND PELVIS WITHOUT CONTRAST REASON FOR EXAM: Male, 46 years old. Acute renal insufficiency superimposed on chronic renal disease. RADIATION DOSAGE (If Supplied By Facility): CTDIvol = ( 11.05 ) mGy, DLP = ( 568.87 ) mGycm TECHNIQUE: Transaxial images were obtained from the dome of the diaphragm to the symphysis pubis without oral contrast, and without intravenous contrast. Sagittal and coronal images were reconstructed. Individualized dose optimization techniques were used for this CT. COMPARISON: Prior comparison studies are not available for review at this time. FINDINGS: There is heterogeneous groundglass attenuation the lung bases probably related to dependent atelectasis. The visualized heart is enlarged. There is a small pericardial effusion measuring approximately 8.4 mm. Normal liver. There are surgical clips in the gallbladder fossa consistent with a prior cholecystectomy. Normal spleen. Normal pancreas. Normal bilateral adrenal glands. Normal right kidney. Normal left kidney. There is a small hiatal hernia. There is no evidence for dilated bowel, ascites or pneumoperitoneum. The small bowel has a grossly normal appearance. Stool is visible throughout the colon with scattered diverticula. There is non-visualization of the appendix. Normal abdominal aorta. Normal inferior vena cava. There is a left-sided retroaortic vein. Urinary bladder is very distended. Normal visualized prostate gland. Normal abdominal wall. Normal osseous structures. CT/Abdomen/Pelvis without Cont IMPRESSION: 1. No CT evidence of acute intra-abdominal disease. 2. Small pericardial effusion. Electronically Signed: Neli Mariscal MD at 11:29 EDT , Service support ,
--- NOTE | 2017-11-20 10:41 | PN_ITS ---
Patient Problems: Active and Suspected Problems Hypokalemia (Acute) Diastolic congestive heart failure (Acute) Hypertensive emergency (Acute) ILDA (acute kidney injury) (Acute) Subjective: Patient is a 46-year-old male with a past medical history of poorly controlled diabetes mellitus type 2, noncompliance with diet and medication, morbid obesity , diabetic retinopathy right eye with history of laser therapy, hypertension, hyperlipidemia, blindness in his left eye due to a retinal tear, diabetic peripheral polyneuropathy, anxiety/depression, GERD and nicotine dependence who presented to the Ed at [facility] on with c/o headache, vision changes, tinnitus which had been intermittent for the past week. Other complaints included increased edema of his legs, weight gain, exertional dyspnea and orthopnea. He admitted to not taking any of his medications and not following his diabetic diet. Vital signs at presentation to the emergency room were temperature 98.6, pulse rate 100, blood pressure 209/131, respiratory rate 16 and he was 99% saturated on room air. CBC was remarkable for a hemoglobin of 10.3 with normochromic normocytic indices and a normal RDW. Potassium was low at 3.4 and the BUN was 37 with a creatinine of 2.47 and an estimated creatinine clearance of 35. Random blood sugar was 359 and hemoglobin A1c was 10.5. Troponin was 0.03. Chest x-ray showed mild increase in interstitial markings. BNP was not checked. CT brain showed no evidence of acute intracranial hemorrhage or ischemia. He was admitted to the intensive care unit with a diagnosis of hypertensive emergency. TMAX: 99.1 Vital signs: Blood pressure has ranged from 136/71 to 209/131. Fluid balance: Urine output since admission has been 950 cc. Balance is -422 cc. Weight: Weight at admission was 216 pounds and 11 ounces and currently is 214 pounds with 4.6 ounces. All radiologic testing was reviewed: Chest x-ray to admission showed increased pulmonary vascular congestion All labs were personally reviewed: Creatinine remains elevated at 2.46 and the BUN is 42. Potassium is 3.6 today. Serial cardiac enzymes were negative. Triglycerides are 139 and the total cholesterol is 284 with an LDL of 213 and an HDL of 43. TSH was within normal limits. Telemetry: Echocardiogram done this a.m. shows a 65% ejection fraction with moderate concentric left ventricular hypertrophy. The right ventricle is normal in size and function. There is a trivial right to left intra-atrial shunt with a hypermobile atrial septum. Objective: Lisinopril was held at admission due to possible ILDA? but has been restarted by Dr. Hayes....will need to monitor the CREAT closely. Tells me that he stopped taking his medications because he is stubborn. Denies any hx of renal failure. Has a hx of Depression and he is currently on wellbutrin. Used to be seen at the [facility] but, not for a few years yet. He is and has 3 step children. He is on disability. - Physical Exam General: Alert, Oriented x3, Cooperative, No apparent distress, Non-Cooperative - in a chair, - HEENT: Atraumatic, Normocephalic Oral: Moist Mucosa Neck: Supple, Trachea Midline Lungs: Clear to auscultation, No rhonchi, No wheeze, No rales Cardiovascular: Regular rate, Regular Rhythm, Normal S1, Normal S2, No murmurs, No rub noted, No Gallop Abdomen: Bowel Sounds Present, Soft, Non Tender, Non-Distended Extremities: No clubbing, No cyanosis, Edema Skin: No rashes, No breakdown Neurological: Cranial nerves II-XII grossly intact, Neuro grossly intact Psych/Mental Status: - - He is awefully cavalier for someone admitted to an ICU with hypertensive emergency and renal failure. Denies feeling suicidal. Does not seem to have a good grasp of the severity of disease he has due to non- compliance with meds and follow up. One has to consider whether stopping his medications and getting admitted to an ICU is attention seeking. Vital Signs Temp Pulse Resp BP Pulse Ox 98.3 F 95 16 136/71 H 94 11/20/17 08:00 11/20/17 10:16 11/20/17 09:00 11/20/17 10:16 11/20/17 09:00 Oxygen Flow Rate (L/min) 2 Oxygen Delivery Method Nasal Cannula Weight: 214 lb 4.629 oz Body Mass Index (BMI) 32.9 Intake and Output for Last 24 Hours 11/18/17 11/19/17 11/20/17 23:59 23:59 23:59 Intake Total 250 / 250 278 / 278 Output Total 950 / 950 Balance -700 / -700 278 / 278 Laboratory Tests Past 24 Hrs 11/19/17 11/19/17 11/19/17 21:25 22:10 22:10 WBC RBC Hgb Hct MCV MCH MCHC RDW RDW Differential Plt Count MPV Sodium Potassium Chloride Carbon Dioxide Anion Gap BUN Creatinine Estim Creat Clear Calc Est GFR (MDRD) Af Amer Est GFR (MDRD) Non-Af BUN/Creatinine Ratio Glucose Calcium Magnesium 1.9 Troponin I 0.04 Triglycerides Cholesterol LDL Cholesterol VLDL Cholesterol HDL Cholesterol TSH 3.13 MRSA (PCR) POSITIVE H 11/20/17 11/20/17 11/20/17 01:40 05:45 05:45 WBC 7.0 RBC 3.45 L Hgb 10.3 L Hct 28.9 L MCV 83.8 MCH 29.9 MCHC 35.6 RDW 12.9 RDW Differential 37.3 Plt Count 205 MPV 10.6 Sodium Cancelled Potassium Cancelled Chloride Cancelled Carbon Dioxide Cancelled Anion Gap Cancelled BUN Cancelled Creatinine Cancelled Estim Creat Clear Calc Cancelled Est GFR (MDRD) Af Amer Cancelled Est GFR (MDRD) Non-Af Cancelled BUN/Creatinine Ratio Cancelled Glucose Cancelled Calcium Cancelled Magnesium Troponin I 0.03 Triglycerides Cancelled Cholesterol Cancelled LDL Cholesterol Cancelled VLDL Cholesterol Cancelled HDL Cholesterol Cancelled TSH MRSA (PCR) 11/20/17 11/20/17 06:25 07:40 WBC RBC Hgb Hct MCV MCH MCHC RDW RDW Differential Plt Count MPV Sodium 143 Potassium 3.6 Chloride 110 H Carbon Dioxide 25.0 Anion Gap 8 BUN 42 H Creatinine 2.46 H Estim Creat Clear Calc 35.53 Est GFR (MDRD) Af Amer 36 L Est GFR (MDRD) Non-Af 30 L BUN/Creatinine Ratio 17.1 Glucose 159 H Calcium 7.9 L Magnesium Troponin I 0.02 Triglycerides 139 Cholesterol 284 H LDL Cholesterol 213 H VLDL Cholesterol 28 HDL Cholesterol 43 TSH MRSA (PCR) POC Glucose 11/19/17 22:04 POC Glucose 190 H Assessment/Plan Active and Suspected Problems Hypokalemia (Acute) Diastolic congestive heart failure (Acute) Hypertensive emergency (Acute) ILDA (acute kidney injury) (Acute) Impressions 1. Hypertensive emergency - secondary to non-compliance with medications, which I suspect has been on ongoing problem for many years 2. Uncontrolled DM II due to non-compliance with diet and with meds. 3. Blind left eye due to neglect in follow up for a retinal tear. Vision is not good in the R eye due to diabetic retinopathy and he has had laser treatments 4. Diabetic peripheral neuropathy 5. Acute renal failure versus chronic renal failure-we have no recent baseline on this patient and currently he is in stage III renal failure - suspect he has chronic stage III renal failure 6. acute diastolic CHF 7. Diabetic retinopathy 8. Non-compliance with diet and with medications 9. Long history of anxiety/depression-used to follow-up at the counseling center but has not been seen in a few years. I suspect uncontrolled depression is contributing to his self-neglect and noncompliance. 10. Tobacco dependence with chewing tobacco Consult Dr. Montiel to participate in management and evaluate his kidney function Obtain CT scan of the abdomen and pelvis to look at the urinary tract/kidney size Urine sodium and urine creatinine with urine protein Increase the metoprolol to 50 mg p.o. twice daily Discontinue the Tridil drip 2 new to monitor the blood pressure in the ICU today. When he is no longer requiring any intravenous antihypertensives will likely discharge home Behavioral health consult Code Visit Inpatient E&M: 19772 Subs Hosp L3
[2017-11-20 11:41] LABS: Bedside Glucose 310 mg/dL (70-110)
[2017-11-20] MEDS: Atorvastatin Calcium 40 MG Tablet PO (11:51)
[2017-11-20] MEDS: Glucerna Shake 120 ML LIQUID PO (11:52)
[2017-11-20 13:59] LABS: Color, Urine Yellow (Yellow); Glucose, Dipstick 250 mg/dl (Normal); Ketone-Dipstick Negative (Negative); Leukocyte Esterase-Dipstick Negative /ul (Negative); Nitrite-Dipstick Negative (Negative); Occult Blood-Urine 25 /ul (Negative); Protein-Dipstick 500 mg/dl (Negative); Urine Bilirubin Dipstick Negative (Negative); Urine Clarity Sl. Cloudy (Clear); Urine Urobilinogen Normal (Normal)
[2017-11-20 15:06] LABS: Albumin, Serum 2.3 g/dL (3.2-5.0); Anion Gap 11 (5-15); BUN 41 mg/dL (7-18); BUN/Creat Ratio 15.8 RATIO (10-20); Chloride 108 mmol/L (98-107); EST Glomerular Filtration Rate 28 mL/min (>60); Est Glom Filt Rate - Afr Amer 34 mL/min (>60); Estimated Creatinine Clearance 33.62 ml/min; Glucose 159 mg/dL (74-106); Phosphorus 3.2 mg/dL (2.5-4.9); Potassium 3.8 mmol/L (3.5-5.1); Sodium Level 143 mmol/L (136-145)
[2017-11-20 17:55] LABS: Bedside Glucose 147 mg/dL (70-110)
[2017-11-20] MEDS: Ondansetron 4 MG/2 ML Vial IV (18:15)
[2017-11-20] MEDS: Metoprolol Tartrate 50 MG Tablet PO (21:15)
[2017-11-20 21:31] LABS: Bedside Glucose 162 mg/dL (70-110)
[2017-11-21] VITALS (14 sets, daily range): BP systolic 132–160; BP diastolic 65–91; PULSE 78–88; RESP 12–22; TEMP 36.8–37.7; O2SAT 90–98
[2017-11-21 01:56] LABS: Protein, Urine (Random) 352.6 mg/dL (<11.9)
[2017-11-21 04:50] LABS: Hematocrit 32.8 % (40-54); Hemoglobin 11.6 g/dl (13.0-16.5); Mean Corp Hgb Conc 35.4 g/gl (32-36); Mean Corpuscular Hgb 29.8 pg (27.0-32.0); Mean Corpuscular Volume 84.3 fL (80-94); Mean Platelet Vol. 9.4 fl (6.2-12.0); Platelet Count 233 K/mm3 (150-450); RBC Distribution Width CV 12.8 % (11.6-14.6); RBC Distribution Width SD 38.5 fl (35.1-43.9); Red Blood Count 3.89 M/mm3 (4.6-6.2); White Blood Count 8.2 K/mm3 (4.4-11.0)
[2017-11-21 04:55] LABS: Anion Gap 7 (5-15); BUN 43 mg/dL (7-18); BUN/Creat Ratio 14.9 RATIO (10-20); Calcium,Total 8.1 mg/dL (8.5-10.1); Chloride 107 mmol/L (98-107); Creatinine, Serum 2.88 mg/dL (0.70-1.30); EST Glomerular Filtration Rate 25 mL/min (>60); Est Glom Filt Rate - Afr Amer 30 mL/min (>60); Estimated Creatinine Clearance 30.35 ml/min; Glucose 88 mg/dL (74-106); Magnesium 1.8 mg/dL (1.6-2.6); Phosphorus 3.7 mg/dL (2.5-4.9); Potassium 3.4 mmol/L (3.5-5.1); Sodium Level 142 mmol/L (136-145)
[2017-11-21 04:58] LABS: Scan Indicated on CBC? Y/N NO
[2017-11-21] MEDS: 0.9% NaCl Peripheral Flush Adult/Peds IV (05:42)
[2017-11-21] MEDS: Furosemide 40 MG/4 ML Vial IV (05:42)
--- NOTE | 2017-11-21 06:51 | PCM.PN.INT ---
Subjective: The patient was seen and examined at the bedside this morning. Events from the last 24 hours have been reviewed. The patient is currently afebrile, hemodynamically stable and maintaining appropriate oxygen saturations on room air. The patient has been off of his nitro infusion since yesterday. Blood pressures are improved. Potassium is low this morning at 3.4. Creatinine is increased from 2.6 to 2.88. The patient is overall net -2 L for the admission. Objective: The patient's most recent lab work, culture data and imaging studies have all been personally reviewed. Head CT revealed chronic involutional changes without evidence of acute intracranial hemorrhage. Plain film chest x-ray revealed a mild degree of pulmonary vascular congestion. Surface echocardiogram revealed mild concentric LVH with an ejection fraction of 65%. There was evidence of a trivial right to left interatrial shunt. General: Alert, Cooperative, No apparent distress HEENT: Atraumatic, PERRLA, Normocephalic Oral: Moist Mucosa, No Gingival or Mucosal Lesions/ Ulcerations Neck: Supple, No Nodes, Trachea Midline Lungs: No rhonchi, No wheeze, No rales, Diminished Cardiovascular: Regular rate, Regular Rhythm, Normal S1, Normal S2, No murmurs Abdomen: Bowel Sounds Present, Soft, Non Tender, Obese Extremities: No clubbing, No cyanosis, Edema Skin: No rashes, No breakdown Musculoskeletal: No Tenderness to Palpation of Joints or Extremities, No Muscle Wasting Lymphatic: No Cervical, Supraclavicular, or Inguinal Adenopathy Neurological: Neuro grossly intact Psych/Mental Status: Normal Affect, Appropriate Vital Signs Temp Pulse Resp BP Pulse Ox 98.8 F 80 12 132/74 H 91 11/21/17 04:00 11/21/17 06:00 11/21/17 06:00 11/21/17 06:00 11/21/17 06:00 Oxygen Flow Rate (L/min) 2 Oxygen Delivery Method Room Air Weight: 213 lb 13.574 oz Body Mass Index (BMI) 32.9 Intake and Output for Last 24 Hours 11/19/17 11/20/17 11/21/17 23:59 23:59 23:59 Intake Total 250 / 250 893 / 893 200 / 200 Output Total 950 / 950 1600 / 1600 800 / 800 Balance -700 / -700 -707 / -707 -600 / -600 Labs (Last 48 Hours) 11/19/17 11/19/17 11/19/17 21:25 22:04 22:10 WBC RBC Hgb Hct MCV MCH MCHC RDW RDW Differential Plt Count MPV Sodium Potassium Chloride Carbon Dioxide Anion Gap BUN Creatinine Estim Creat Clear Calc Est GFR (MDRD) Af Amer Est GFR (MDRD) Non-Af BUN/Creatinine Ratio Glucose Calcium Phosphorus Magnesium 1.9 Troponin I Albumin Triglycerides Cholesterol LDL Cholesterol VLDL Cholesterol HDL Cholesterol TSH 3.13 Urine Color Urine Clarity Urine pH Ur Specific [place] Urine Protein Urine Glucose (UA) Urine Ketones Urine Occult Blood Urine Nitrite Urine Bilirubin Urine Urobilinogen Ur Leukocyte Esterase U Random Total Protein Urine Creatinine MRSA (PCR) POSITIVE H POC Glucose 190 H 11/19/17 11/20/17 11/20/17 22:10 01:40 05:45 WBC 7.0 RBC 3.45 L Hgb 10.3 L Hct 28.9 L MCV 83.8 MCH 29.9 MCHC 35.6 RDW 12.9 RDW Differential 37.3 Plt Count 205 MPV 10.6 Sodium Potassium Chloride Carbon Dioxide Anion Gap BUN Creatinine Estim Creat Clear Calc Est GFR (MDRD) Af Amer Est GFR (MDRD) Non-Af BUN/Creatinine Ratio Glucose Calcium Phosphorus Magnesium Troponin I 0.04 0.03 Albumin Triglycerides Cholesterol LDL Cholesterol VLDL Cholesterol HDL Cholesterol TSH Urine Color Urine Clarity Urine pH Ur Specific [place] Urine Protein Urine Glucose (UA) Urine Ketones Urine Occult Blood Urine Nitrite Urine Bilirubin Urine Urobilinogen Ur Leukocyte Esterase U Random Total Protein Urine Creatinine MRSA (PCR) POC Glucose 11/20/17 11/20/17 11/20/17 05:45 06:25 07:40 WBC RBC Hgb Hct MCV MCH MCHC RDW RDW Differential Plt Count MPV Sodium Cancelled 143 Potassium Cancelled 3.6 Chloride Cancelled 110 H Carbon Dioxide Cancelled 25.0 Anion Gap Cancelled 8 BUN Cancelled 42 H Creatinine Cancelled 2.46 H Estim Creat Clear Calc Cancelled 35.53 Est GFR (MDRD) Af Amer Cancelled 36 L Est GFR (MDRD) Non-Af Cancelled 30 L BUN/Creatinine Ratio Cancelled 17.1 Glucose Cancelled 159 H Calcium Cancelled 7.9 L Phosphorus Magnesium Troponin I 0.02 Albumin Triglycerides Cancelled 139 Cholesterol Cancelled 284 H LDL Cholesterol Cancelled 213 H VLDL Cholesterol Cancelled 28 HDL Cholesterol Cancelled 43 TSH Urine Color Urine Clarity Urine pH Ur Specific [place] Urine Protein Urine Glucose (UA) Urine Ketones Urine Occult Blood Urine Nitrite Urine Bilirubin Urine Urobilinogen Ur Leukocyte Esterase U Random Total Protein Urine Creatinine MRSA (PCR) POC Glucose 11/20/17 11/20/17 11/20/17 11:26 13:50 14:35 WBC RBC Hgb Hct MCV MCH MCHC RDW RDW Differential Plt Count MPV Sodium 143 Potassium 3.8 Chloride 108 H Carbon Dioxide 24.0 Anion Gap 11 BUN 41 H Creatinine 2.60 H Estim Creat Clear Calc 33.62 Est GFR (MDRD) Af Amer 34 L Est GFR (MDRD) Non-Af 28 L BUN/Creatinine Ratio 15.8 Glucose 159 H Calcium 8.0 L Phosphorus 3.2 Magnesium Troponin I Albumin 2.3 L Triglycerides Cholesterol LDL Cholesterol VLDL Cholesterol HDL Cholesterol TSH Urine Color Yellow Urine Clarity Sl. Cloudy Urine pH 5.0 Ur Specific [place] 1.020 Urine Protein 500 H Urine Glucose (UA) 250 H Urine Ketones Negative Urine Occult Blood 25 H Urine Nitrite Negative Urine Bilirubin Negative Urine Urobilinogen Normal Ur Leukocyte Esterase Negative U Random Total Protein Urine Creatinine MRSA (PCR) POC Glucose 310 H 11/20/17 11/20/17 11/21/17 17:49 21:17 01:30 WBC RBC Hgb Hct MCV MCH MCHC RDW RDW Differential Plt Count MPV Sodium Potassium Chloride Carbon Dioxide Anion Gap BUN Creatinine Estim Creat Clear Calc Est GFR (MDRD) Af Amer Est GFR (MDRD) Non-Af BUN/Creatinine Ratio Glucose Calcium Phosphorus Magnesium Troponin I Albumin Triglycerides Cholesterol LDL Cholesterol VLDL Cholesterol HDL Cholesterol TSH Urine Color Urine Clarity Urine pH Ur Specific [place] Urine Protein Urine Glucose (UA) Urine Ketones Urine Occult Blood Urine Nitrite Urine Bilirubin Urine Urobilinogen Ur Leukocyte Esterase U Random Total Protein Urine Creatinine 91.40 MRSA (PCR) POC Glucose 147 H 162 H 11/21/17 11/21/17 11/21/17 01:30 04:30 04:30 WBC 8.2 RBC 3.89 L Hgb 11.6 L Hct 32.8 L MCV 84.3 MCH 29.8 MCHC 35.4 RDW 12.8 RDW Differential 38.5 Plt Count 233 MPV 9.4 Sodium 142 Potassium 3.4 L Chloride 107 Carbon Dioxide 28.0 Anion Gap 7 BUN 43 H Creatinine 2.88 H Estim Creat Clear Calc 30.35 Est GFR (MDRD) Af Amer 30 L Est GFR (MDRD) Non-Af 25 L BUN/Creatinine Ratio 14.9 Glucose 88 Calcium 8.1 L Phosphorus 3.7 Magnesium 1.8 Troponin I Albumin Triglycerides Cholesterol LDL Cholesterol VLDL Cholesterol HDL Cholesterol TSH Urine Color Urine Clarity Urine pH Ur Specific [place] Urine Protein Urine Glucose (UA) Urine Ketones Urine Occult Blood Urine Nitrite Urine Bilirubin Urine Urobilinogen Ur Leukocyte Esterase U Random Total Protein 352.6 H Urine Creatinine MRSA (PCR) POC Glucose Clinical Impression(s) from Imaging Studies Brain CT 11/19/17 18:03 IMPRESSION: 1. Chronic involutional changes of the brain. 2. No CT evidence of acute intracranial hemorrhage. Electronically Signed: Neli Mariscal MD at 19:08 EDT , Service support , Chest X-Ray 11/19/17 18:30 IMPRESSION: Mild pulmonary congestion. Differential considerations include acute exacerbation of reactive airway disease or viral infection. Electronically Signed: Neli Mariscal MD at 19:19 EDT , Service support , Abdomen/Pelvis CT 11/20/17 10:40 [address]: 1[address] evidence of acute intra-abdominal disease. 2. Small pericardial effusion. Electronically Signed: Neli Mariscal MD at 11:29 EDT , Service support , Assessment/Plan Active and Suspected Problems Hypokalemia (Acute) Diastolic congestive heart failure (Acute) Hypertensive emergency (Acute) ILDA (acute kidney injury) (Acute) RECOMMENDATIONS: 1. Upward titration of current antihypertensive regimen as needed 2. Transition from IV Lasix to p.o. regimen 3. Consider nephrology consultation 4. Continue Levemir and sliding scale insulin coverage 5. Consider outpatient endocrinology follow-up 6. Nutrition to provide diabetic education 7. Encourage incentive spirometer use and mobilize patient as tolerated. IMPRESSIONS: 1. Hypertensive emergency secondary to outpatient noncompliance The patient has been noncompliant with the use of his outpatient antihypertensive regimen, leading to his uncontrolled blood pressure parameters at presentation. He was initially maintained on a nitro drip for blood pressure control. However, he has since been weaned off after home TOM inhibitor and beta-elizabeth were resumed. Will continue current antihypertensive regimen, with upward titration as needed. Echocardiogram was largely unrevealing. Recommend transitioning from IV Lasix to p.o. regimen. 2. Uncontrolled diabetes mellitus Continue Levemir and sliding scale insulin coverage. The patient's hemoglobin A1c certainly indicates outpatient noncompliance. Nutrition to provide diabetic education. Consider referral to endocrinology for outpatient follow-up. 3. Acute on chronic kidney disease May be related to progression of his underlying medical renal disease. We will continue to monitor creatinine and urine output. No indication for renal replacement therapy at this time. Blood pressure control as noted above. Given that the patient's creatinine has worsened, would consider nephrology consultation. 4. Hyperlipidemia/anxiety/depression/GERD/smokeless tobacco dependence/obesity Complicates care, management, recovery and prognosis. Okay to continue home medications from my perspective. Weight loss is suggested. This note was generated with [employer] dictation software. It may contain incorrect words, spelling, and punctuation that were not noted in checking the note before signing. DISPOSITION: The patient is medically stable for transfer out of the intensive care unit. Given the lack of ongoing ICU needs, will sign off. Please call with any additional questions. Code Visit Inpatient E&M: [id number] [facility] L3
--- NOTE | 2017-11-21 06:57 | PN_ITS ---
Subjective: The patient was seen and examined at the bedside this morning. Events from the last 24 hours have been reviewed. The patient is currently afebrile, hemodynamically stable and maintaining appropriate oxygen saturations on room air. The patient has been off of his nitro infusion since yesterday. Blood pressures are improved. Potassium is low this morning at 3.4. Creatinine is increased from 2.6 to 2.88. The patient is overall net -2 L for the admission. Objective: The patient's most recent lab work, culture data and imaging studies have all been personally reviewed. Head CT revealed chronic involutional changes without evidence of acute intracranial hemorrhage. Plain film chest x-ray revealed a mild degree of pulmonary vascular congestion. Surface echocardiogram revealed mild concentric LVH with an ejection fraction of 65%. There was evidence of a trivial right to left interatrial shunt. General: Alert, Cooperative, No apparent distress HEENT: Atraumatic, PERRLA, Normocephalic Oral: Moist Mucosa, No Gingival or Mucosal Lesions/ Ulcerations Neck: Supple, No Nodes, Trachea Midline Lungs: No rhonchi, No wheeze, No rales, Diminished Cardiovascular: Regular rate, Regular Rhythm, Normal S1, Normal S2, No murmurs Abdomen: Bowel Sounds Present, Soft, Non Tender, Obese Extremities: No clubbing, No cyanosis, Edema Skin: No rashes, No breakdown Musculoskeletal: No Tenderness to Palpation of Joints or Extremities, No Muscle Wasting Lymphatic: No Cervical, Supraclavicular, or Inguinal Adenopathy Neurological: Neuro grossly intact Psych/Mental Status: Normal Affect, Appropriate Vital Signs Temp Pulse Resp BP Pulse Ox 98.8 F 80 12 132/74 H 91 11/21/17 04:00 11/21/17 06:00 11/21/17 06:00 11/21/17 06:00 11/21/17 06:00 Oxygen Flow Rate (L/min) 2 Oxygen Delivery Method Room Air Weight: 213 lb 13.574 oz Body Mass Index (BMI) 32.9 Intake and Output for Last 24 Hours 11/19/17 11/20/17 11/21/17 23:59 23:59 23:59 Intake Total 250 / 250 893 / 893 200 / 200 Output Total 950 / 950 1600 / 1600 800 / 800 Balance -700 / -700 -707 / -707 -600 / -600 Labs (Last 48 Hours) 11/19/17 11/19/17 11/19/17 21:25 22:04 22:10 WBC RBC Hgb Hct MCV MCH MCHC RDW RDW Differential Plt Count MPV Sodium Potassium Chloride Carbon Dioxide Anion Gap BUN Creatinine Estim Creat Clear Calc Est GFR (MDRD) Af Amer Est GFR (MDRD) Non-Af BUN/Creatinine Ratio Glucose Calcium Phosphorus Magnesium 1.9 Troponin I Albumin Triglycerides Cholesterol LDL Cholesterol VLDL Cholesterol HDL Cholesterol TSH 3.13 Urine Color Urine Clarity Urine pH Ur Specific [place] Urine Protein Urine Glucose (UA) Urine Ketones Urine Occult Blood Urine Nitrite Urine Bilirubin Urine Urobilinogen Ur Leukocyte Esterase U Random Total Protein Urine Creatinine MRSA (PCR) POSITIVE H POC Glucose 190 H 11/19/17 11/20/17 11/20/17 22:10 01:40 05:45 WBC 7.0 RBC 3.45 L Hgb 10.3 L Hct 28.9 L MCV 83.8 MCH 29.9 MCHC 35.6 RDW 12.9 RDW Differential 37.3 Plt Count 205 MPV 10.6 Sodium Potassium Chloride Carbon Dioxide Anion Gap BUN Creatinine Estim Creat Clear Calc Est GFR (MDRD) Af Amer Est GFR (MDRD) Non-Af BUN/Creatinine Ratio Glucose Calcium Phosphorus Magnesium Troponin I 0.04 0.03 Albumin Triglycerides Cholesterol LDL Cholesterol VLDL Cholesterol HDL Cholesterol TSH Urine Color Urine Clarity Urine pH Ur Specific [place] Urine Protein Urine Glucose (UA) Urine Ketones Urine Occult Blood Urine Nitrite Urine Bilirubin Urine Urobilinogen Ur Leukocyte Esterase U Random Total Protein Urine Creatinine MRSA (PCR) POC Glucose 11/20/17 11/20/17 11/20/17 05:45 06:25 07:40 WBC RBC Hgb Hct MCV MCH MCHC RDW RDW Differential Plt Count MPV Sodium Cancelled 143 Potassium Cancelled 3.6 Chloride Cancelled 110 H Carbon Dioxide Cancelled 25.0 Anion Gap Cancelled 8 BUN Cancelled 42 H Creatinine Cancelled 2.46 H Estim Creat Clear Calc Cancelled 35.53 Est GFR (MDRD) Af Amer Cancelled 36 L Est GFR (MDRD) Non-Af Cancelled 30 L BUN/Creatinine Ratio Cancelled 17.1 Glucose Cancelled 159 H Calcium Cancelled 7.9 L Phosphorus Magnesium Troponin I 0.02 Albumin Triglycerides Cancelled 139 Cholesterol Cancelled 284 H LDL Cholesterol Cancelled 213 H VLDL Cholesterol Cancelled 28 HDL Cholesterol Cancelled 43 TSH Urine Color Urine Clarity Urine pH Ur Specific [place] Urine Protein Urine Glucose (UA) Urine Ketones Urine Occult Blood Urine Nitrite Urine Bilirubin Urine Urobilinogen Ur Leukocyte Esterase U Random Total Protein Urine Creatinine MRSA (PCR) POC Glucose 11/20/17 11/20/17 11/20/17 11:26 13:50 14:35 WBC RBC Hgb Hct MCV MCH MCHC RDW RDW Differential Plt Count MPV Sodium 143 Potassium 3.8 Chloride 108 H Carbon Dioxide 24.0 Anion Gap 11 BUN 41 H Creatinine 2.60 H Estim Creat Clear Calc 33.62 Est GFR (MDRD) Af Amer 34 L Est GFR (MDRD) Non-Af 28 L BUN/Creatinine Ratio 15.8 Glucose 159 H Calcium 8.0 L Phosphorus 3.2 Magnesium Troponin I Albumin 2.3 L Triglycerides Cholesterol LDL Cholesterol VLDL Cholesterol HDL Cholesterol TSH Urine Color Yellow Urine Clarity Sl. Cloudy Urine pH 5.0 Ur Specific [place] 1.020 Urine Protein 500 H Urine Glucose (UA) 250 H Urine Ketones Negative Urine Occult Blood 25 H Urine Nitrite Negative Urine Bilirubin Negative Urine Urobilinogen Normal Ur Leukocyte Esterase Negative U Random Total Protein Urine Creatinine MRSA (PCR) POC Glucose 310 H 11/20/17 11/20/17 11/21/17 17:49 21:17 01:30 WBC RBC Hgb Hct MCV MCH MCHC RDW RDW Differential Plt Count MPV Sodium Potassium Chloride Carbon Dioxide Anion Gap BUN Creatinine Estim Creat Clear Calc Est GFR (MDRD) Af Amer Est GFR (MDRD) Non-Af BUN/Creatinine Ratio Glucose Calcium Phosphorus Magnesium Troponin I Albumin Triglycerides Cholesterol LDL Cholesterol VLDL Cholesterol HDL Cholesterol TSH Urine Color Urine Clarity Urine pH Ur Specific [place] Urine Protein Urine Glucose (UA) Urine Ketones Urine Occult Blood Urine Nitrite Urine Bilirubin Urine Urobilinogen Ur Leukocyte Esterase U Random Total Protein Urine Creatinine 91.40 MRSA (PCR) POC Glucose 147 H 162 H 11/21/17 11/21/17 11/21/17 01:30 04:30 04:30 WBC 8.2 RBC 3.89 L Hgb 11.6 L Hct 32.8 L MCV 84.3 MCH 29.8 MCHC 35.4 RDW 12.8 RDW Differential 38.5 Plt Count 233 MPV 9.4 Sodium 142 Potassium 3.4 L Chloride 107 Carbon Dioxide 28.0 Anion Gap 7 BUN 43 H Creatinine 2.88 H Estim Creat Clear Calc 30.35 Est GFR (MDRD) Af Amer 30 L Est GFR (MDRD) Non-Af 25 L BUN/Creatinine Ratio 14.9 Glucose 88 Calcium 8.1 L Phosphorus 3.7 Magnesium 1.8 Troponin I Albumin Triglycerides Cholesterol LDL Cholesterol VLDL Cholesterol HDL Cholesterol TSH Urine Color Urine Clarity Urine pH Ur Specific [place] Urine Protein Urine Glucose (UA) Urine Ketones Urine Occult Blood Urine Nitrite Urine Bilirubin Urine Urobilinogen Ur Leukocyte Esterase U Random Total Protein 352.6 H Urine Creatinine MRSA (PCR) POC Glucose Clinical Impression(s) from Imaging Studies Brain CT 11/19/17 18:03 IMPRESSION: 1. Chronic involutional changes of the brain. 2. No CT evidence of acute intracranial hemorrhage. Electronically Signed: Neli Mariscal MD at 19:08 EDT , Service support , Chest X-Ray 11/19/17 18:30 IMPRESSION: Mild pulmonary congestion. Differential considerations include acute exacerbation of reactive airway disease or viral infection. Electronically Signed: Neli Mariscal MD at 19:19 EDT , Service support , Abdomen/Pelvis CT 11/20/17 10:40 IMPRESSION: 1[address] No CT evidence of acute intra-abdominal disease. 2. Small pericardial effusion. Electronically Signed: Neli Mariscal MD at 11:29 EDT , Service support , Assessment/Plan Active and Suspected Problems Hypokalemia (Acute) Diastolic congestive heart failure (Acute) Hypertensive emergency (Acute) ILDA (acute kidney injury) (Acute) RECOMMENDATIONS: 1. Upward titration of current antihypertensive regimen as needed 2. Transition from IV Lasix to p.o. regimen 3. Consider nephrology consultation 4. Continue Levemir and sliding scale insulin coverage 5. Consider outpatient endocrinology follow-up 6. Nutrition to provide diabetic education 7. Encourage incentive spirometer use and mobilize patient as tolerated. IMPRESSIONS: 1. Hypertensive emergency secondary to outpatient noncompliance The patient has been noncompliant with the use of his outpatient antihypertensive regimen, leading to his uncontrolled blood pressure parameters at presentation. He was initially maintained on a nitro drip for blood pressure control. However, he has since been weaned off after home TOM inhibitor and beta-elizabeth were resumed. Will continue current antihypertensive regimen, with upward titration as needed. Echocardiogram was largely unrevealing. Recommend transitioning from IV Lasix to p.o. regimen. 2. Uncontrolled diabetes mellitus Continue Levemir and sliding scale insulin coverage. The patient's hemoglobin A1c certainly indicates outpatient noncompliance. Nutrition to provide diabetic education. Consider referral to endocrinology for outpatient follow- up. 3. Acute on chronic kidney disease May be related to progression of his underlying medical renal disease. We will continue to monitor creatinine and urine output. No indication for renal replacement therapy at this time. Blood pressure control as noted above. Given that the patient's creatinine has worsened, would consider nephrology consultation. 4. Hyperlipidemia/anxiety/depression/GERD/smokeless tobacco dependence/obesity Complicates care, management, recovery and prognosis. Okay to continue home medications from my perspective. Weight loss is suggested. This note was generated with [employer] dictation software. It may contain incorrect words, spelling, and punctuation that were not noted in checking the note before signing. DISPOSITION: The patient is medically stable for transfer out of the intensive care unit. Given the lack of ongoing ICU needs, will sign off. Please call with any additional questions. Code Visit Inpatient E&M: [id number] [facility] L3
--- NOTE | 2017-11-21 07:35 | PCM.DC ---
- Discharge Diagnoses Current Active Problems: Current Active and Chronic Problems HTN (hypertension) (Chronic) HLD (hyperlipidemia) (Chronic) Blind left eye (Chronic) Diabetes mellitus type II, uncontrolled (Chronic) Neuropathy (Chronic) Obesity (BMI 30.0-34.9) (Chronic) Anxiety and depression (Chronic) GERD (gastroesophageal reflux disease) (Chronic) Chewing tobacco nicotine dependence (Chronic) Hypertensive emergency (Acute) CHF (congestive heart failure) (Acute) ILDA (acute kidney injury) (Acute) CKD (chronic kidney disease) stage 3, GFR 30-59 ml/min (Chronic) You will use the following diet at home:: Cardiac - low fat and low salt......No more than 2 Grams of salt daily Your food should be the consistency of: Regular Your liquids should be the consistency of: Regular/Thin Discharge Activity: Return to Normal Activity Call your doctor if you observe: Fever of 101 or Higher, Shortness of breath, Dizziness, Fainting spells, Chest pain, - - weight gain of more than 5 lbs in 1 week Instructions: Controlling High Blood Pressure, Treatment Options for Kidney Failure, Discharge Instructions for Chronic Kidney Disease Additional Instructions: Your kidneys are failing because your BP and diabetes and cholesterol are NOT controlled. If this continues you will soon need dialysis. You already have blindness and kidney disease and neuropathy. You are at VERY HIGH risk for strokes and heart attacks if you continue to ignore your BP, diabetes and high cholesterol. Not taking your medications with your multiple medical problems is Suicidal in my opinion. If you want to live to see your children grow up you need to get control of the diabetes and blood pressure and cholesterol and stop chewing tobacco. In order to control diabetes you MUST stick to a low carb diet. You should be taking the novolog 15 units with ALL meals.....that means 3 times a day. I think it would be an excellent idea to follow up in the diabetic clinic that the dieticians run at the hospital.....you will need a referral from your PCP. There have been some changes to your medications......please adhere to the list of medications given to you at discharge. I will be sending a copy of the medications list and a discharge summary to Dr. Mcneil. An appt has been made for you to follow up with a nurse practitioner who specializes in diabetes. I recommend you keep this appt so that we can get your blood sugars undercontrol so hopefully things won't continue to get worse. Pending Tests on Discharge: none Allergies/Adverse Reactions: Allergies No Known Allergies Allergy (Verified 11/19/17 17:48) Medications to take at Discharge Gabapentin [Neurontin] 600 mg PO TIDCM 07/15/13 Insulin Glargine [Lantus SoloStar Pen] 75 units SC QHS 07/15/13 Amlodipine [Norvasc] 5 mg PO DAILY 05/06/17 Bupropion HCl [Wellbutrin Xl] 300 mg PO DAILY 05/06/17 Aspirin 81 mg PO DAILY 11/19/17 Atorvastatin Calcium [Lipitor] 20 mg PO DAILY 11/19/17 Ranitidine [Zantac] 300 mg PO DAILY 11/19/17 Insulin Aspart [Novolog Flexpen] 15 units SC TIDCM #15 pen 11/21/17 Lisinopril [Zestril] 20 mg PO DAILY #30 tab 11/21/17 Metoprolol Tartrate [Lopressor (beta elizabeth)] 50 mg PO BID #60 tab 11/21/17 The following prescriptions were given: Lisinopril [Zestril] 20 mg PO DAILY #30 tab Metoprolol Tartrate [Lopressor (beta elizabeth)] 50 mg PO BID #60 tab Primary Care Physician: Zaida Mcneil MD [Primary Care Provider] - Please follow up with your Primary Care Physician in: 7-10 days Please Follow Up With: Norah Adams NP-C When: Saturday Please Follow Up With: Loida Montiel DO When: 2 weeks Proposed Discharge Date: 11/21/17
[2017-11-21] MEDS: Aspirin E.C. 81 MG Tablet PO (08:19)
[2017-11-21] MEDS: Metoprolol Tartrate 50 MG Tablet PO (08:19)
[2017-11-21] MEDS: Lisinopril 20 MG Tablet PO (08:20)
[2017-11-21 08:26] LABS: Bedside Glucose 98 mg/dL (70-110)
[2017-11-21] MEDS: Furosemide 40 MG Tablet PO (08:26)
[2017-11-21] MEDS: Magnesium Oxide 400 MG Tablet PO (08:26)
--- NOTE | 2017-11-21 08:57 | PCM.CONS.R ---
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 He presents to the [facility] ED on 11/19/17 with an elevated blood pressure 200/120 and high blood sugars. He had trouble with his hearing in his left ear with tinnitus. He had increased leg edema. He was instructed by his doctor to go to the emergency room. He has very little knowledge of low sugar and low sodium diet. Dietary was consulted. He was last seen by his PCP on November 12. Creatinine on admission was 2.47 increased to 2.88. He was given IV Lasix 3 times a day for her extremity edema and mild congestion on chest x-ray and small pleural effusion. Echocardiogram showed preserved cardiac function with LVH. He denied any chest pain. He has some shortness of breath that has improved. He has a history of sleep apnea but does not wear a mask at night. His urine protein creatinine ratio showed 3.86 g protein. He has been on lisinopril at home and continued in the hospital. - Allergies Allergies: Allergies No Known Allergies Allergy (Verified 11/19/17 17:48) - Current Medications Current Medications: Current Medications Acetaminophen (Tylenol) 650 mg PO Q6H PRN PRN PRN Reason: Mild Pain (scale 0-3)/T>100.7 Al Hydroxide/Mg Hydroxide (Mylanta Ii) 30 ml PO Q6H PRN PRN PRN Reason: Gastric burning Aspirin (Ecotrin) 81 mg PO DAILY@0800 [facility] Last Admin: 11/21/17 08:19 Dose: 81 mg Atorvastatin Calcium (Lipitor) 40 mg PO DAILY@2200 [facility] Last Admin: 11/20/17 11:51 Dose: 40 mg Bupropion HCl (Wellbutrin Xl) 300 mg PO DAILY [facility] Last Admin: 11/21/17 08:18 Dose: 300 mg Dextrose (D50w Syringe) 0 gm IV X1 PRN; Protocol PRN Reason: Hypoglycemia Furosemide (Lasix) 40 mg PO DAILY [facility] Last Admin: 11/21/17 08:26 Dose: 40 mg Glucagon () 1 mg IM .X1 PRN PRN Reason: Hypoglycemia Heparin Sodium (Porcine) (Heparin Na) 5,000 unit SC BID [facility] Last Admin: 11/21/17 08:21 Dose: 5,000 units Hydralazine HCl (Apresoline) 20 mg IV Q4H PRN PRN PRN Reason: SBP > 160 Last Admin: 11/20/17 13:39 Dose: 20 mg Sodium Chloride () 250 mls @ 15 mls/hr IV .[id number] PRN PRN Reason: SALINE FLUSH Insulin Aspart (Novolog Flexpen (Bkc)) 0 units SC ACHS [facility] PRN Reason: Protocol Last Admin: 11/21/17 08:17 Dose: Not Given Insulin Aspart (Novolog Flexpen (Bkc)) 6 units SC TIDAC [facility] Last Admin: 11/21/17 08:17 Dose: 6 u Insulin Detemir (Levemir (Bkc)) 35 units SC BID@1100,2200 [facility] Last Admin: 11/20/17 21:18 Dose: 35 u Lisinopril (Zestril) 20 mg PO DAILY [facility] Last Admin: 11/21/17 08:20 Dose: 20 mg Magnesium Hydroxide (Milk Of Magnesia) 30 ml PO DAILY PRN PRN PRN Reason: Constipation Metoprolol Tartrate (Lopressor (Beta Silvana)) 50 mg PO BID [facility] Last Admin: 11/21/17 08:19 Dose: 50 mg Nutritional Formula (Lactose Free) (Glucerna Shake) 120 ml PO TIDCM [facility] Last Admin: 11/21/17 08:21 Dose: Not Given Ondansetron HCl (Zofran) 4 mg IV Q8H PRN PRN PRN Reason: NAUSEA Last Admin: 11/20/17 18:15 Dose: 4 mg Promethazine HCl (Phenergan (Ll)) 12.5 mg IV Q6H PRN PRN PRN Reason: NAUSEA/VOMITING Sodium Chloride () 5 - 30 ml IV UD PRN PRN Reason: SALINE FLUSH Last Admin: 11/21/17 05:42 Dose: 20 ml - Past Medical History Past Medical History (Chronic Problems): Chronic Problems Noncompliance (Chronic) Diabetic neuropathy (Chronic) Diabetic nephropathy (Chronic) Diabetic retinopathy (Chronic) HTN (hypertension) (Chronic) HLD (hyperlipidemia) (Chronic) Blind left eye (Chronic) Diabetes mellitus type II, uncontrolled (Chronic) Obesity (BMI 30.0-34.9) (Chronic) Anxiety and depression (Chronic) GERD (gastroesophageal reflux disease) (Chronic) Chewing tobacco nicotine dependence (Chronic) CKD (chronic kidney disease) stage 3, GFR 30-59 ml/min (Chronic) Leg edema, right (Chronic) History of acute myocardial infarction (Chronic) - Past Surgical History Surgical History: - - Cholecystectomy, left retinal tear repair attempts, right eye laser surgery. - Social History Marital Status: Smoking Status: Never smoker Alcohol: Rare Drugs: None - Family History Maternal History Items: Heart Disease Paternal History Items: Cancer - Father w/ Colon CA. Sibling History Items: Diabetes - sister, brother who passed, no kidney disease Review of Systems Constitutional: Denies: Anorexia, Chills, Fever, Weakness, Fatigue Eyes: Reports: Blurred vision - blind left eye, retinal tear, retinopathy HEENT: Reports: Head Aches Cardiovascular: Reports: Edema. Denies: Chest Pain Respiratory: Reports: Shortness of Breath, - - sleep apnea, not on CPAP. Denies: Cough Gastrointestinal: Denies: Abdominal Pain, Diarrhea, Nausea, Vomiting Genitourinary: Denies: Dysuria, Frequency, Hematuria Musculoskeletal: Reports: - - leg swelling. Denies: Arm Pain, Back Pain Skin: Denies: Rash Neurological: Denies: Balance problems Psychiatric: Denies: Anxiety, Depression Hematologic/ Lymphatic: Reports: Anemia. Denies: Hx of blood clot Patient Problems: Active and Suspected Problems Hypokalemia (Acute) Diastolic congestive heart failure (Acute) - Physical Exam General: Alert, Oriented x3, Cooperative, No apparent distress HEENT: PERRLA, EOMI Oral: Moist Mucosa Neck: Supple, No JVD Lungs: Diminished, - Cardiovascular: Regular rate Abdomen: Bowel Sounds Present, Soft, Non Tender, Non-Distended, Obese Extremities: Edema - BLE 1+ Musculoskeletal: No Muscle Wasting Neurological: Cranial nerves II-XII grossly intact Psych/Mental Status: Normal Affect, Appropriate, Alert and oriented to time, place, person, mood and affect Vital Signs Temp Pulse Resp BP Pulse Ox 98.8 F 86 22 H 142/65 H 92 03/15/18 04:00 11/21/17 08:19 11/21/17 07:58 11/21/17 07:58 11/21/17 07:58 Oxygen Flow Rate (L/min) 2 Oxygen Delivery Method Room Air Weight: 97 kg Body Mass Index (BMI) 32.9 Intake and Output for Last 24 Hours 11/19/17 11/20/17 11/21/17 23:59 23:59 23:59 Intake Total 250 / 250 893 / 893 200 / 200 Output Total 950 / 950 1600 / 1600 800 / 800 Balance -700 / -700 -707 / -707 -600 / -600 Laboratory Tests Past 24 Hrs 11/20/17 11/20/17 11/21/17 13:50 14:35 01:30 WBC RBC Hgb Hct MCV MCH MCHC RDW RDW Differential Plt Count MPV Sodium 143 Potassium 3.8 Chloride 108 H Carbon Dioxide 24.0 Anion Gap 11 BUN 41 H Creatinine 2.60 H Estim Creat Clear Calc 33.62 Est GFR (MDRD) Af Amer 34 L Est GFR (MDRD) Non-Af 28 L BUN/Creatinine Ratio 15.8 Glucose 159 H Calcium 8.0 L Phosphorus 3.2 Magnesium Albumin 2.3 L Urine Color Yellow Urine Clarity Sl. Cloudy Urine pH 5.0 Ur Specific [place] 1.020 Urine Protein 500 H Urine Glucose (UA) 250 H Urine Ketones Negative Urine Occult Blood 25 H Urine Nitrite Negative Urine Bilirubin Negative Urine Urobilinogen Normal Ur Leukocyte Esterase Negative U Random Total Protein Urine Creatinine 91.40 11/21/17 11/21/17 11/21/17 01:30 04:30 04:30 WBC 8.2 RBC 3.89 L Hgb 11.6 L Hct 32.8 L MCV 84.3 MCH 29.8 MCHC 35.4 RDW 12.8 RDW Differential 38.5 Plt Count 233 MPV 9.4 Sodium 142 Potassium 3.4 L Chloride 107 Carbon Dioxide 28.0 Anion Gap 7 BUN 43 H Creatinine 2.88 H Estim Creat Clear Calc 30.35 Est GFR (MDRD) Af Amer 30 L Est GFR (MDRD) Non-Af 25 L BUN/Creatinine Ratio 14.9 Glucose 88 Calcium 8.1 L Phosphorus 3.7 Magnesium 1.8 Albumin Urine Color Urine Clarity Urine pH Ur Specific [place] Urine Protein Urine Glucose (UA) Urine Ketones Urine Occult Blood Urine Nitrite Urine Bilirubin Urine Urobilinogen Ur Leukocyte Esterase U Random Total Protein 352.6 H Urine Creatinine POC Glucose 11/21/17 11/20/17 11/20/17 07:39 21:17 17:49 POC Glucose 98 162 H 147 H 11/20/17 11:26 POC Glucose 310 H Clinical Impression(s) from Imaging Studies Brain CT 11/19/17 18:03 IMPRESSION: 1. Chronic involutional changes of the brain. 2. No CT evidence of acute intracranial hemorrhage. Electronically Signed: Neli Mariscal MD at 19:08 EDT , Service support , Chest X-Ray 11/19/17 18:30 IMPRESSION: Mild pulmonary congestion. Differential considerations include acute exacerbation of reactive airway disease or viral infection. Electronically Signed: Neli Mariscal MD at 19:19 EDT , Service support , Abdomen/Pelvis CT 11/20/17 10:40 IMPRESS[address]: 1[address] evidence of acute intra-abdominal disease. 2. Small pericardial effusion. Electronically Signed: Neli Mariscal MD at 11:29 EDT , Service support , Assessment/Plan Active and Suspected Problems Hypokalemia (Acute) Diastolic congestive heart failure (Acute) 1. ILDA on CKD Stage 3 with baseline creatinine 1.8 in May 2017, now at 2.4-1.6 with nephrotic proteinuria 3.8g/gCr on UPCR. He has anasarca, uncontrolled hypertension and poorly controlled diabetes. Discussed with patient risk of progressive renal failure requiring dialysis in the near future if he continues with his noncompliant behavior. FH significant for diabetes in his siblings, one from complications of diabetes. Will continue with lasix and lisinopril. Continue with low sodium diet, diabetic carb control. 2. Hypertensive urgency due to noncompliance. 3. Uncontrolled diabetes on insulin. A1C elevated at 10.5 with history of neuropathy, nephropathy, retinopathy, blind left eye 4. Morbid obesity 5. Anemia hgb 11.6g 6. Follow up in office. Will need dialysis education as outpt.
--- NOTE | 2017-11-21 09:01 | CON.PCM_ITS ---
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 He presents to the [facility] ED on 11/19/17 with an elevated blood pressure 200/120 and high blood sugars. He had trouble with his hearing in his left ear with tinnitus. He had increased leg edema. He was instructed by his doctor to go to the emergency room. He has very little knowledge of low sugar and low sodium diet. Dietary was consulted. He was last seen by his PCP on November 12. Creatinine on admission was 2.47 increased to 2.88. He was given IV Lasix 3 times a day for her extremity edema and mild congestion on chest x-ray and small pleural effusion. Echocardiogram showed preserved cardiac function with LVH. He denied any chest pain. He has some shortness of breath that has improved. He has a history of sleep apnea but does not wear a mask at night. His urine protein creatinine ratio showed 3.86 g protein. He has been on lisinopril at home and continued in the hospital. - Allergies Allergies: Allergies No Known Allergies Allergy (Verified 11/19/17 17:48) - Current Medications Current Medications: Current Medications Acetaminophen (Tylenol) 650 mg PO Q6H PRN PRN PRN Reason: Mild Pain (scale 0-3)/T>100.7 Al Hydroxide/Mg Hydroxide (Mylanta Ii) 30 ml PO Q6H PRN PRN PRN Reason: Gastric burning Aspirin (Ecotrin) 81 mg PO DAILY@0800 [facility] Last Admin: 11/21/17 08:19 Dose: 81 mg Atorvastatin Calcium (Lipitor) 40 mg PO DAILY@2200 [facility] Last Admin: 11/20/17 11:51 Dose: 40 mg Bupropion HCl (Wellbutrin Xl) 300 mg PO DAILY [facility] Last Admin: 11/21/17 08:18 Dose: 300 mg Dextrose (D50w Syringe) 0 gm IV X1 PRN; Protocol PRN Reason: Hypoglycemia Furosemide (Lasix) 40 mg PO DAILY [facility] Last Admin: 11/21/17 08:26 Dose: 40 mg Glucagon () 1 mg IM .X1 PRN PRN Reason: Hypoglycemia Heparin Sodium (Porcine) (Heparin Na) 5,000 unit SC BID [facility] Last Admin: 11/21/17 08:21 Dose: 5,000 units Hydralazine HCl (Apresoline) 20 mg IV Q4H PRN PRN PRN Reason: SBP > 160 Last Admin: 11/20/17 13:39 Dose: 20 mg Sodium Chloride () 250 mls @ 15 mls/hr IV .[id number] PRN PRN Reason: SALINE FLUSH Insulin Aspart (Novolog Flexpen (Bkc)) 0 units SC ACHS [facility] PRN Reason: Protocol Last Admin: 11/21/17 08:17 Dose: Not Given Insulin Aspart (Novolog Flexpen (Bkc)) 6 units SC TIDAC [facility] Last Admin: 11/21/17 08:17 Dose: 6 u Insulin Detemir (Levemir (Bkc)) 35 units SC BID@1100,2200 [facility] Last Admin: 11/20/17 21:18 Dose: 35 u Lisinopril (Zestril) 20 mg PO DAILY [facility] Last Admin: 11/21/17 08:20 Dose: 20 mg Magnesium Hydroxide (Milk Of Magnesia) 30 ml PO DAILY PRN PRN PRN Reason: Constipation Metoprolol Tartrate (Lopressor (Beta Silvana)) 50 mg PO BID [facility] Last Admin: 11/21/17 08:19 Dose: 50 mg Nutritional Formula (Lactose Free) (Glucerna Shake) 120 ml PO TIDCM [facility] Last Admin: 11/21/17 08:21 Dose: Not Given Ondansetron HCl (Zofran) 4 mg IV Q8H PRN PRN PRN Reason: NAUSEA Last Admin: 11/20/17 18:15 Dose: 4 mg Promethazine HCl (Phenergan (Ll)) 12.5 mg IV Q6H PRN PRN PRN Reason: NAUSEA/VOMITING Sodium Chloride () 5 - 30 ml IV UD PRN PRN Reason: SALINE FLUSH Last Admin: 11/21/17 05:42 Dose: 20 ml - Past Medical History Past Medical History (Chronic Problems): Chronic Problems Noncompliance (Chronic) Diabetic neuropathy (Chronic) Diabetic nephropathy (Chronic) Diabetic retinopathy (Chronic) HTN (hypertension) (Chronic) HLD (hyperlipidemia) (Chronic) Blind left eye (Chronic) Diabetes mellitus type II, uncontrolled (Chronic) Obesity (BMI 30.0-34.9) (Chronic) Anxiety and depression (Chronic) GERD (gastroesophageal reflux disease) (Chronic) Chewing tobacco nicotine dependence (Chronic) CKD (chronic kidney disease) stage 3, GFR 30-59 ml/min (Chronic) Leg edema, right (Chronic) History of acute myocardial infarction (Chronic) - Past Surgical History Surgical History: - - Cholecystectomy, left retinal tear repair attempts, right eye laser surgery. - Social History Marital Status: Smoking Status: Never smoker Alcohol: Rare Drugs: None - Family History Maternal History Items: Heart Disease Paternal History Items: Cancer - Father w/ Colon CA. Sibling History Items: Diabetes - sister, brother who passed, no kidney disease Review of Systems Constitutional: Denies: Anorexia, Chills, Fever, Weakness, Fatigue Eyes: Reports: Blurred vision - blind left eye, retinal tear, retinopathy HEENT: Reports: Head Aches Cardiovascular: Reports: Edema. Denies: Chest Pain Respiratory: Reports: Shortness of Breath, - - sleep apnea, not on CPAP. Denies : Cough Gastrointestinal: Denies: Abdominal Pain, Diarrhea, Nausea, Vomiting Genitourinary: Denies: Dysuria, Frequency, Hematuria Musculoskeletal: Reports: - - leg swelling. Denies: Arm Pain, Back Pain Skin: Denies: Rash Neurological: Denies: Balance problems Psychiatric: Denies: Anxiety, Depression Hematologic/ Lymphatic: Reports: Anemia. Denies: Hx of blood clot Patient Problems: Active and Suspected Problems Hypokalemia (Acute) Diastolic congestive heart failure (Acute) - Physical Exam General: Alert, Oriented x3, Cooperative, No apparent distress HEENT: PERRLA, EOMI Oral: Moist Mucosa Neck: Supple, No JVD Lungs: Diminished, - Cardiovascular: Regular rate Abdomen: Bowel Sounds Present, Soft, Non Tender, Non-Distended, Obese Extremities: Edema - BLE 1+ Musculoskeletal: No Muscle Wasting Neurological: Cranial nerves II-XII grossly intact Psych/Mental Status: Normal Affect, Appropriate, Alert and oriented to time, place, person, mood and affect Vital Signs Temp Pulse Resp BP Pulse Ox 98.8 F 86 22 H 142/65 H 92 03/15/18 04:00 11/21/17 08:19 11/21/17 07:58 11/21/17 07:58 11/21/17 07:58 Oxygen Flow Rate (L/min) 2 Oxygen Delivery Method Room Air Weight: 97 kg Body Mass Index (BMI) 32.9 Intake and Output for Last 24 Hours 11/19/17 11/20/17 11/21/17 23:59 23:59 23:59 Intake Total 250 / 250 893 / 893 200 / 200 Output Total 950 / 950 1600 / 1600 800 / 800 Balance -700 / -700 -707 / -707 -600 / -600 Laboratory Tests Past 24 Hrs 11/20/17 11/20/17 11/21/17 13:50 14:35 01:30 WBC RBC Hgb Hct MCV MCH MCHC RDW RDW Differential Plt Count MPV Sodium 143 Potassium 3.8 Chloride 108 H Carbon Dioxide 24.0 Anion Gap 11 BUN 41 H Creatinine 2.60 H Estim Creat Clear Calc 33.62 Est GFR (MDRD) Af Amer 34 L Est GFR (MDRD) Non-Af 28 L BUN/Creatinine Ratio 15.8 Glucose 159 H Calcium 8.0 L Phosphorus 3.2 Magnesium Albumin 2.3 L Urine Color Yellow Urine Clarity Sl. Cloudy Urine pH 5.0 Ur Specific [place] 1.020 Urine Protein 500 H Urine Glucose (UA) 250 H Urine Ketones Negative Urine Occult Blood 25 H Urine Nitrite Negative Urine Bilirubin Negative Urine Urobilinogen Normal Ur Leukocyte Esterase Negative U Random Total Protein Urine Creatinine 91.40 11/21/17 11/21/17 11/21/17 01:30 04:30 04:30 WBC 8.2 RBC 3.89 L Hgb 11.6 L Hct 32.8 L MCV 84.3 MCH 29.8 MCHC 35.4 RDW 12.8 RDW Differential 38.5 Plt Count 233 MPV 9.4 Sodium 142 Potassium 3.4 L Chloride 107 Carbon Dioxide 28.0 Anion Gap 7 BUN 43 H Creatinine 2.88 H Estim Creat Clear Calc 30.35 Est GFR (MDRD) Af Amer 30 L Est GFR (MDRD) Non-Af 25 L BUN/Creatinine Ratio 14.9 Glucose 88 Calcium 8.1 L Phosphorus 3.7 Magnesium 1.8 Albumin Urine Color Urine Clarity Urine pH Ur Specific [place] Urine Protein Urine Glucose (UA) Urine Ketones Urine Occult Blood Urine Nitrite Urine Bilirubin Urine Urobilinogen Ur Leukocyte Esterase U Random Total Protein 352.6 H Urine Creatinine POC Glucose 11/21/17 11/20/17 11/20/17 07:39 21:17 17:49 POC Glucose 98 162 H 147 H 11/20/17 11:26 POC Glucose 310 H Clinical Impression(s) from Imaging Studies Brain CT 11/19/17 18:03 IMPRESSION: 1. Chronic involutional changes of the brain. 2. No CT evidence of acute intracranial hemorrhage. Electronically Signed: Neli Mariscal MD at 19:08 EDT , Service support , Chest X-Ray 11/19/17 18:30 IMPRESSION: Mild pulmonary congestion. Differential considerations include acute exacerbation of reactive airway disease or viral infection. Electronically Signed: Neli Mariscal MD at 19:19 EDT , Service support , Abdomen/Pelvis CT 11/20/17 10:40 IMPRESSION: 1[address] No CT evidence of acute intra-abdominal disease. 2. Small pericardial effusion. Electronically Signed: Neli Mariscal MD at 11:29 EDT , Service support , Assessment/Plan Active and Suspected Problems Hypokalemia (Acute) Diastolic congestive heart failure (Acute) 1. ILDA on CKD Stage 3 with baseline creatinine 1.8 in May 2017, now at 2.4 -1.6 with nephrotic proteinuria 3.8g/gCr on UPCR. He has anasarca, uncontrolled hypertension and poorly controlled diabetes. Discussed with patient risk of progressive renal failure requiring dialysis in the near future if he continues with his noncompliant behavior. FH significant for diabetes in his siblings, one from complications of diabetes. Will continue with lasix and lisinopril. Continue with low sodium diet , diabetic carb control. 2. Hypertensive urgency due to noncompliance. 3. Uncontrolled diabetes on insulin. A1C elevated at 10.5 with history of neuropathy, nephropathy, retinopathy, blind left eye 4. Morbid obesity 5. Anemia hgb 11.6g 6. Follow up in office. Will need dialysis education as outpt.
--- NOTE | 2017-11-21 09:23 | PCM.DC.SUM ---
Discharge Date and Diagnosis - Problem List Patient Problems: Active and Suspected Problems Hypokalemia (Acute) Diastolic congestive heart failure (Acute) Hypertensive emergency (Acute) ILDA (acute kidney injury) (Acute) Date of Admission: 11/19/17 Date of Discharge: 11/21/17 - Primary Discharge Diagnosis Active and Suspected Problems Hypertensive emergency (Acute) Diastolic congestive heart failure (Acute) Hypokalemia (Acute) ILDA (acute kidney injury) on CRF stage III-IV Hypokalemia - Secondary Discharge Diagnosis Chronic Problems Noncompliance (Chronic) with diet and medication Diabetic neuropathy (Chronic) Diabetic nephropathy (Chronic) Diabetic retinopathy (Chronic) HTN (hypertension) (Chronic) HLD (hyperlipidemia) (Chronic) Blind left eye (Chronic) Diabetes mellitus type II, uncontrolled (Chronic) Obesity (BMI 30.0-34.9) (Chronic) Anxiety and depression (Chronic) GERD (gastroesophageal reflux disease) (Chronic) Chewing tobacco nicotine dependence (Chronic) CKD (chronic kidney disease) stage 3, GFR 30-59 ml/min (Chronic) Leg edema, right (Chronic) History of acute myocardial infarction (Chronic) Nephrotic syndrome with greater than 3.6 g of protein in 24 hours Hospital Course and Treatment Imaging Results: Clinical Impression(s) from Imaging Studies Brain CT 11/19/17 18:03 IMPRESSION: 1. Chronic involutional changes of the brain. 2. No CT evidence of acute intracranial hemorrhage. Electronically Signed: Neli Mariscal MD at 19:08 EDT , Service support , Chest X-Ray 11/19/17 18:30 IMPRESSION: Mild pulmonary congestion. Differential considerations include acute exacerbation of reactive airway disease or viral infection. Electronically Signed: Neli Mariscal MD at 19:19 EDT , Service support , Abdomen/Pelvis CT 11/20/17 10:[address]: 1[address] evidence of acute intra-abdominal disease. 2. Small pericardial effusion. Electronically Signed: Neli Mariscal MD at 11:29 EDT , Service support , Laboratory Results - last 24 hr 11/20/17 11/20/17 11/20/17 11:26 13:50 14:35 WBC RBC Hgb Hct MCV MCH MCHC RDW RDW Differential Plt Count MPV Sodium 143 Potassium 3.8 Chloride 108 H Carbon Dioxide 24.0 Anion Gap 11 BUN 41 H Creatinine 2.60 H Estim Creat Clear Calc 33.62 Est GFR (MDRD) Af Amer 34 L Est GFR (MDRD) Non-Af 28 L BUN/Creatinine Ratio 15.8 Glucose 159 H Calcium 8.0 L Phosphorus 3.2 Magnesium Albumin 2.3 L Urine Color Yellow Urine Clarity Sl. Cloudy Urine pH 5.0 Ur Specific [place] 1.020 Urine Protein 500 H Urine Glucose (UA) 250 H Urine Ketones Negative Urine Occult Blood 25 H Urine Nitrite Negative Urine Bilirubin Negative Urine Urobilinogen Normal Ur Leukocyte Esterase Negative U Random Total Protein Urine Creatinine POC Glucose 310 H 11/20/17 11/20/17 11/21/17 17:49 21:17 01:30 WBC RBC Hgb Hct MCV MCH MCHC RDW RDW Differential Plt Count MPV Sodium Potassium Chloride Carbon Dioxide Anion Gap BUN Creatinine Estim Creat Clear Calc Est GFR (MDRD) Af Amer Est GFR (MDRD) Non-Af BUN/Creatinine Ratio Glucose Calcium Phosphorus Magnesium Albumin Urine Color Urine Clarity Urine pH Ur Specific [place] Urine Protein Urine Glucose (UA) Urine Ketones Urine Occult Blood Urine Nitrite Urine Bilirubin Urine Urobilinogen Ur Leukocyte Esterase U Random Total Protein Urine Creatinine 91.40 POC Glucose 147 H 162 H 11/21/17 11/21/17 11/21/17 01:30 04:30 04:30 WBC 8.2 RBC 3.89 L Hgb 11.6 L Hct 32.8 L MCV 84.3 MCH 29.8 MCHC 35.4 RDW 12.8 RDW Differential 38.5 Plt Count 233 MPV 9.4 Sodium 142 Potassium 3.4 L Chloride 107 Carbon Dioxide 28.0 Anion Gap 7 BUN 43 H Creatinine 2.88 H Estim Creat Clear Calc 30.35 Est GFR (MDRD) Af Amer 30 L Est GFR (MDRD) Non-Af 25 L BUN/Creatinine Ratio 14.9 Glucose 88 Calcium 8.1 L Phosphorus 3.7 Magnesium 1.8 Albumin Urine Color Urine Clarity Urine pH Ur Specific [place] Urine Protein Urine Glucose (UA) Urine Ketones Urine Occult Blood Urine Nitrite Urine Bilirubin Urine Urobilinogen Ur Leukocyte Esterase U Random Total Protein 352.6 H Urine Creatinine POC Glucose 11/21/17 07:39 WBC RBC Hgb Hct MCV MCH MCHC RDW RDW Differential Plt Count MPV Sodium Potassium Chloride Carbon Dioxide Anion Gap BUN Creatinine Estim Creat Clear Calc Est GFR (MDRD) Af Amer Est GFR (MDRD) Non-Af BUN/Creatinine Ratio Glucose Calcium Phosphorus Magnesium Albumin Urine Color Urine Clarity Urine pH Ur Specific [place] Urine Protein Urine Glucose (UA) Urine Ketones Urine Occult Blood Urine Nitrite Urine Bilirubin Urine Urobilinogen Ur Leukocyte Esterase U Random Total Protein Urine Creatinine POC Glucose 98 Dr. Loida Montiel-nephrology Dr. Joao Hayes-director building Operations: None Procedures: 2-D Echocardiogram Summary of Care Provided: Patient is a 46-year-old male with a past medical history of poorly controlled diabetes mellitus type 2, noncompliance with diet and medication, morbid obesity, diabetic retinopathy right eye with history of laser therapy, hypertension, hyperlipidemia, blindness in his left eye due to a retinal tear, diabetic peripheral polyneuropathy, anxiety/depression, GERD and nicotine dependence with chewing tobacco who presented to the ED at [facility] on 11/19/17 with c/o headache, vision changes, tinnitus which had been intermittent for the past week. Other complaints included increased edema of his legs, weight gain, exertional dyspnea and orthopnea. He admitted to not taking any of his medications and not following his diabetic diet. Vital signs at presentation to the emergency room were temperature 98.6, pulse rate 100, blood pressure 209/131, respiratory rate 16 and he was 99% saturated on room air. CBC was remarkable for a hemoglobin of 10.3 with normochromic normocytic indices and a normal RDW. Potassium was low at 3.4 and the BUN was 37 with a creatinine of 2.47 and an estimated creatinine clearance of 35. Random blood sugar was 359 and hemoglobin A1c was 10.5. Troponin was 0.03. Chest x-ray showed mild increase in interstitial markings. BNP was not checked. CT brain showed no evidence of acute intracranial hemorrhage or ischemia. He was admitted to the intensive care unit with a diagnosis of hypertensive emergency. He was treated with IV Hydralazine and a NTG infusion to decrease preload. Lisinopril was discontinued because of the renal failure. His other oral medications were restarted. Serial cardiac enzymes were negative. ECHO was obtained and showed a 65% ejection fraction with moderate concentric left ventricular hypertrophy, trivial right to left interatrial shunt, small anterior pericardial effusion. Unable to estimate RV systolic pressure due to technically difficult study. He was diuresed and his fluid balance was -2007 cc at discharge. His medications were adjusted and prior to discharge the BP ranged from 132/69- 152/91. Amlodipine 5 mg was restarted. Diet education was provided by the trim die maker. Cessation of chewing tobacco was encouraged. He was seen by Dr. Montiel prior to DC and she calculated his urine Protein to be 3.68 GM in 24H. This is consistent with nephrotic S. Likely due to uncontrolled DM and HTN. GFR at discharge was 25. At the time of DC the lungs were CTA and the heart had a RRR with no gallop and no rub. Pitting edema in the legs was improved...he will likely always have some edema due to Nephrotic S. and third spacing of fluids. I encouraged him to start wearing compression stockings. He has an appt with the diabetic ROTARY ENGRAVER this coming on 11/26. He will follow up with Dr. Mcneil in 7-[address] Montiel in 2 weeks. I spoke to him and his when she came to take him home. I have encouraged them to follow up with behavioral Health for counselling because I feel his depression is contributing to self neglect and non-compliance. This note was generated with [employer] dictation software. It may contain incorrect words, spelling, and punctuation that were not noted in checking the note before signing. Discharge Activity: Return to Normal Activity Call your doctor if you observe: Fever of 101 or Higher, Shortness of breath, Dizziness, Fainting spells, Chest pain, - - weight gain of more than 5 lbs in 1 week Home Medications: Medications to take at Discharge Gabapentin [Neurontin] 600 mg PO TIDCM 07/15/13 Insulin Glargine [Lantus SoloStar Pen] 75 units SC QHS 07/15/13 Amlodipine [Norvasc] 5 mg PO DAILY 05/06/17 Bupropion HCl [Wellbutrin Xl] 300 mg PO DAILY 05/06/17 Aspirin 81 mg PO DAILY 11/19/17 Atorvastatin Calcium [Lipitor] 20 mg PO DAILY 11/19/17 Ranitidine [Zantac] 300 mg PO DAILY 11/19/17 Insulin Aspart [Novolog Flexpen] 15 units SC TIDCM #15 pen 11/21/17 Lisinopril [Zestril] 20 mg PO DAILY #30 tab 11/21/17 Metoprolol Tartrate [Lopressor (beta elizabeth)] 50 mg PO BID #60 tab 11/21/17 Following Prescrptions Were Given to Patient: Lisinopril [Zestril] 20 mg PO DAILY #30 tab Metoprolol Tartrate [Lopressor (beta elizabeth)] 50 mg PO BID #60 tab Primary Care Physician: Zaida Mcneil MD [Primary Care Provider] - Please follow up with your Primary Care Physician in: 7-10 days Please Follow Up With: Norah Adams NP-C When: Saturday Please Follow Up With: Loida Montiel DO When: 2 weeks Patient Instructions: Controlling High Blood Pressure, Treatment Options for Kidney Failure, Discharge Instructions for Chronic Kidney Disease Disposition: Home Minutes spent on discharge:: 40 Patient Condition:: Stable Meaningful Use Info Meaningful Use Diagnoses (Choose all that apply): CHF - CHF TOM/ARB ordered at discharge?: Yes Documented LVEF (%): 65 Code Visit Inpatient E&M: 77149 Disch Hosp
--- NOTE | 2017-11-21 09:33 | DS.PCM_ITS ---
Discharge Date and Diagnosis - Problem List Patient Problems: Active and Suspected Problems Hypokalemia (Acute) Diastolic congestive heart failure (Acute) Hypertensive emergency (Acute) ILDA (acute kidney injury) (Acute) Date of Admission: 11/19/17 Date of Discharge: 11/21/17 - Primary Discharge Diagnosis Active and Suspected Problems Hypertensive emergency (Acute) Diastolic congestive heart failure (Acute) Hypokalemia (Acute) ILDA (acute kidney injury) on CRF stage III-IV Hypokalemia - Secondary Discharge Diagnosis Chronic Problems Noncompliance (Chronic) with diet and medication Diabetic neuropathy (Chronic) Diabetic nephropathy (Chronic) Diabetic retinopathy (Chronic) HTN (hypertension) (Chronic) HLD (hyperlipidemia) (Chronic) Blind left eye (Chronic) Diabetes mellitus type II, uncontrolled (Chronic) Obesity (BMI 30.0-34.9) (Chronic) Anxiety and depression (Chronic) GERD (gastroesophageal reflux disease) (Chronic) Chewing tobacco nicotine dependence (Chronic) CKD (chronic kidney disease) stage 3, GFR 30-59 ml/min (Chronic) Leg edema, right (Chronic) History of acute myocardial infarction (Chronic) Nephrotic syndrome with greater than 3.6 g of protein in 24 hours Hospital Course and Treatment Imaging Results: Clinical Impression(s) from Imaging Studies Brain CT 11/19/17 18:03 IMPRESSION: 1. Chronic involutional changes of the brain. 2. No CT evidence of acute intracranial hemorrhage. Electronically Signed: Neli Mariscal MD at 19:08 EDT , Service support , Chest X-Ray 11/19/17 18:30 IMPRESSION: Mild pulmonary congestion. Differential considerations include acute exacerbation of reactive airway disease or viral infection. Electronically Signed: Neli Mariscal MD at 19:19 EDT , Service support , Abdomen/Pelvis CT 11/20/17 10:40 IMPRESSION: 1. No CT evidence of acute intra-abdominal disease. 2. Small pericardial effusion. Electronically Signed: Neli Mariscal MD at 11:29 EDT , Service support , Laboratory Results - last 24 hr 11/20/17 11/20/17 11/20/17 11:26 13:50 14:35 WBC RBC Hgb Hct MCV MCH MCHC RDW RDW Differential Plt Count MPV Sodium 143 Potassium 3.8 Chloride 108 H Carbon Dioxide 24.0 Anion Gap 11 BUN 41 H Creatinine 2.60 H Estim Creat Clear Calc 33.62 Est GFR (MDRD) Af Amer 34 L Est GFR (MDRD) Non-Af 28 L BUN/Creatinine Ratio 15.8 Glucose 159 H Calcium 8.0 L Phosphorus 3.2 Magnesium Albumin 2.3 L Urine Color Yellow Urine Clarity Sl. Cloudy Urine pH 5.0 Ur Specific [place] 1.020 Urine Protein 500 H Urine Glucose (UA) 250 H Urine Ketones Negative Urine Occult Blood 25 H Urine Nitrite Negative Urine Bilirubin Negative Urine Urobilinogen Normal Ur Leukocyte Esterase Negative U Random Total Protein Urine Creatinine POC Glucose 310 H 11/20/17 11/20/17 11/21/17 17:49 21:17 01:30 WBC RBC Hgb Hct MCV MCH MCHC RDW RDW Differential Plt Count MPV Sodium Potassium Chloride Carbon Dioxide Anion Gap BUN Creatinine Estim Creat Clear Calc Est GFR (MDRD) Af Amer Est GFR (MDRD) Non-Af BUN/Creatinine Ratio Glucose Calcium Phosphorus Magnesium Albumin Urine Color Urine Clarity Urine pH Ur Specific [place] Urine Protein Urine Glucose (UA) Urine Ketones Urine Occult Blood Urine Nitrite Urine Bilirubin Urine Urobilinogen Ur Leukocyte Esterase U Random Total Protein Urine Creatinine 91.40 POC Glucose 147 H 162 H 11/21/17 11/21/17 11/21/17 01:30 04:30 04:30 WBC 8.2 RBC 3.89 L Hgb 11.6 L Hct 32.8 L MCV 84.3 MCH 29.8 MCHC 35.4 RDW 12.8 RDW Differential 38.5 Plt Count 233 MPV 9.4 Sodium 142 Potassium 3.4 L Chloride 107 Carbon Dioxide 28.0 Anion Gap 7 BUN 43 H Creatinine 2.88 H Estim Creat Clear Calc 30.35 Est GFR (MDRD) Af Amer 30 L Est GFR (MDRD) Non-Af 25 L BUN/Creatinine Ratio 14.9 Glucose 88 Calcium 8.1 L Phosphorus 3.7 Magnesium 1.8 Albumin Urine Color Urine Clarity Urine pH Ur Specific [place] Urine Protein Urine Glucose (UA) Urine Ketones Urine Occult Blood Urine Nitrite Urine Bilirubin Urine Urobilinogen Ur Leukocyte Esterase U Random Total Protein 352.6 H Urine Creatinine POC Glucose 11/21/17 07:39 WBC RBC Hgb Hct MCV MCH MCHC RDW RDW Differential Plt Count MPV Sodium Potassium Chloride Carbon Dioxide Anion Gap BUN Creatinine Estim Creat Clear Calc Est GFR (MDRD) Af Amer Est GFR (MDRD) Non-Af BUN/Creatinine Ratio Glucose Calcium Phosphorus Magnesium Albumin Urine Color Urine Clarity Urine pH Ur Specific [place] Urine Protein Urine Glucose (UA) Urine Ketones Urine Occult Blood Urine Nitrite Urine Bilirubin Urine Urobilinogen Ur Leukocyte Esterase U Random Total Protein Urine Creatinine POC Glucose 98 Dr. Loida Montiel-nephrology Dr. Joao Hayes-hydrostatic tubing tester Operations: None Procedures: 2-D Echocardiogram Summary of Care Provided: Patient is a 46-year-old male with a past medical history of poorly controlled diabetes mellitus type 2, noncompliance with diet and medication, morbid obesity, diabetic retinopathy right eye with history of laser therapy, hypertension, hyperlipidemia, blindness in his left eye due to a retinal tear, diabetic peripheral polyneuropathy, anxiety/depression, GERD and nicotine dependence with chewing tobacco who presented to the ED at [facility] on 11/19/17 with c /o headache, vision changes, tinnitus which had been intermittent for the past week. Other complaints included increased edema of his legs, weight gain, exertional dyspnea and orthopnea. He admitted to not taking any of his medications and not following his diabetic diet. Vital signs at presentation to the emergency room were temperature 98.6, pulse rate 100, blood pressure 209/ 131, respiratory rate 16 and he was 99% saturated on room air. CBC was remarkable for a hemoglobin of 10.3 with normochromic normocytic indices and a normal RDW. Potassium was low at 3.4 and the BUN was 37 with a creatinine of 2.47 and an estimated creatinine clearance of 35. Random blood sugar was 359 and hemoglobin A1c was 10.5. Troponin was 0.03. Chest x-ray showed mild increase in interstitial markings. BNP was not checked. CT brain showed no evidence of acute intracranial hemorrhage or ischemia. He was admitted to the intensive care unit with a diagnosis of hypertensive emergency. He was treated with IV Hydralazine and a NTG infusion to decrease preload. Lisinopril was discontinued because of the renal failure. His other oral medications were restarted. Serial cardiac enzymes were negative. ECHO was obtained and showed a 65% ejection fraction with moderate concentric left ventricular hypertrophy, trivial right to left interatrial shunt, small anterior pericardial effusion. Unable to estimate RV systolic pressure due to technically difficult study. He was diuresed and his fluid balance was -2007 cc at discharge. His medications were adjusted and prior to discharge the BP ranged from 132/69- 152/91. Amlodipine 5 mg was restarted. Diet education was provided by the cash processing specialist. Cessation of chewing tobacco was encouraged. He was seen by Dr. Montiel prior to DC and she calculated his urine Protein to be 3.68 GM in 24H. This is consistent with nephrotic S. Likely due to uncontrolled DM and HTN. GFR at discharge was 25. At the time of DC the lungs were CTA and the heart had a RRR with no gallop and no rub. Pitting edema in the legs was improved...he will likely always have some edema due to Nephrotic S. and third spacing of fluids. I encouraged him to start wearing compression stockings. He has an appt with the diabetic CHARGE LPN this coming on 11/26. He will follow up with Dr. Mcneil in 7-[address] Montiel in 2 weeks. I spoke to him and his when she came to take him home. I have encouraged them to follow up with behavioral Health for counselling because I feel his depression is contributing to self neglect and non-compliance. This note was generated with [employer] dictation software. It may contain incorrect words, spelling, and punctuation that were not noted in checking the note before signing. Discharge Activity: Return to Normal Activity Call your doctor if you observe: Fever of 101 or Higher, Shortness of breath, Dizziness, Fainting spells, Chest pain, - - weight gain of more than 5 lbs in 1 week Home Medications: Medications to take at Discharge Gabapentin [Neurontin] 600 mg PO TIDCM 07/15/13 Insulin Glargine [Lantus SoloStar Pen] 75 units SC QHS 07/15/13 Amlodipine [Norvasc] 5 mg PO DAILY 05/06/17 Bupropion HCl [Wellbutrin Xl] 300 mg PO DAILY 05/06/17 Aspirin 81 mg PO DAILY 11/19/17 Atorvastatin Calcium [Lipitor] 20 mg PO DAILY 11/19/17 Ranitidine [Zantac] 300 mg PO DAILY 11/19/17 Insulin Aspart [Novolog Flexpen] 15 units SC TIDCM #15 pen 11/21/17 Lisinopril [Zestril] 20 mg PO DAILY #30 tab 11/21/17 Metoprolol Tartrate [Lopressor (beta elizabeth)] 50 mg PO BID #60 tab 11/21/17 Following Prescrptions Were Given to Patient: Lisinopril [Zestril] 20 mg PO DAILY #30 tab Metoprolol Tartrate [Lopressor (beta elizabeth)] 50 mg PO BID #60 tab Primary Care Physician: Zaida Mcneil MD [Primary Care Provider] - Please follow up with your Primary Care Physician in: 7-10 days Please Follow Up With: Norah Adams NP-C When: Saturday Please Follow Up With: Loida Montiel DO When: 2 weeks Patient Instructions: Controlling High Blood Pressure, Treatment Options for Kidney Failure, Discharge Instructions for Chronic Kidney Disease Disposition: Home Minutes spent on discharge:: 40 Patient Condition:: Stable Meaningful Use Info Meaningful Use Diagnoses (Choose all that apply): CHF - CHF TOM/ARB ordered at discharge?: Yes Documented LVEF (%): 65 Code Visit Inpatient E&M: 38654 Disch Hosp
--- NOTE | 2017-11-21 09:35 | CASEMGMT ---
Physician asked SW to call Behavioral Health for pt. SW called, however pt is leaving shortly and they will not be able to see pt prior to his leaving, they can call pt if he is agreeable. SW spoke w/pt and briefly regarding the program, pt is agreeable to have someone from Behavioral Health call him. SW also gave pt and list of other mental health agencies in the area. SW called Behavioral Health back, let [facility] know they can call pt, they will call him this afternoon. No further needs anticipated at this time. MATTHEW Rodriguez, UTILIZATION COORDINATOR
== END 2017-11-21 10:00 | disposition home or self-care (01) | DRG 291 ==
LOC: ED 19:30 → ICU 20:16
PROVIDERS: Internal Medicine Nephrology; Admitting Provider Family Medicine; Emergency Provider Emergency Medicine; Family Provider Internal Medicine; PCP Internal Medicine; Visit Provider Internal Medicine
DX: I13.0 Hypertensive heart and chronic kidney disease with heart failure and stage 1 through stage 4 chronic kidney disease, or unspecified chronic kidney disease (principal); I50.31 Acute diastolic (congestive) heart failure; E11.22 Type 2 diabetes mellitus with diabetic chronic kidney disease; N17.9 Acute kidney failure, unspecified; N18.3 Chronic kidney disease, stage 3 (moderate); E11.319 Type 2 diabetes mellitus with unspecified diabetic retinopathy without macular edema; E11.42 Type 2 diabetes mellitus with diabetic polyneuropathy; I16.1 Hypertensive emergency; E11.65 Type 2 diabetes mellitus with hyperglycemia; E78.5 Hyperlipidemia, unspecified; E87.6 Hypokalemia; H54.62 Unqualified visual loss, left eye, normal vision right eye; K21.9 Gastro-esophageal reflux disease without esophagitis; I25.2 Old myocardial infarction; F17.220 Nicotine dependence, chewing tobacco, uncomplicated; Z79.4 Long term (current) use of insulin; D64.9 Anemia, unspecified
CPT/HCPCS: 70450; 71045; 74176; 80048; 80061; 80069; 81002; 82570; 82962; 83036; 83735; 84100; 84156; 84443; 84484; 85025; 85027; 87641; 93005; 93306; 97162; 97166; 97802; 99285; J7030; A4216; J1940; J2405

== ENCOUNTER 2017-11-28 08:43 | Inpatient (IN) | payer MEDICARE, SELFPAY ==
[2017-11-28] VITALS (11 sets, daily range): BP systolic 123–143; BP diastolic 74–84; PULSE 74–82; RESP 10–24; TEMP 36.2–36.9; O2SAT 86–97; BMI 36.7; BMI 36.3
--- NOTE | 2017-11-28 08:51 | EKG12_ITS ---
Test Reason : SOB Blood Pressure : / mmHG Vent. Rate : 078 BPM Atrial Rate : 078 BPM P-R Int : 178 ms QRS Dur : 098 ms QT Int : 392 ms P-R-T Axes : 024 047 065 degrees QTc Int : 446 ms Normal sinus rhythm Normal ECG Confirmed by IBRAHIMA NORTON, MITCHELL ([id number]), video news editor TOBY WATSON ([id number]) on 11/29/2017 2:24:32 PM Referred By: VALENTINO Confirmed By:MITCHELL ALEXANDRA MD
--- NOTE | 2017-11-28 09:00 | RAD_ITS ---
STUDY: X-RAY CHEST REASON FOR EXAM: Male, 46 years old. Shortness of breath. TECHNIQUE: Single AP portable view of the chest. COMPARISON: Comparison is made with prior study dated November 19, 2017. FINDINGS: EKG electrodes are seen. Decreased inspiratory effort. There is evidence of CHF. Increased markings are seen in the right infrahilar region. This may represent either atelectasis and/or early infiltrate. Follow-up is recommended. Blunting of both costophrenic angles. Normal size heart. Normal mediastinum and reena. Normal visualized pulmonary arteries. Normal visualized aortic arch and descending thoracic aorta. Normal visualized thoracic spine. Normal visualized ribs, clavicles, and shoulders. There is no demonstrated abnormality of the visualized soft tissue structures of the upper abdomen. RAD/Chest 1 View (Portable) IMPRESSION: Findings in keeping with CHF. Increased right infrahilar markings. Follow-up is recommended. Electronically Signed: Tristan France MD at 9:37 EDT Tel [phone], Service support ,
--- NOTE | 2017-11-28 09:00 | ED.VISSUMM ---
- ER Visit Summary Date of Service: 11/28/17 Chief Complaint: [] Edema shortness of breath cough History of Present Illness: The patient is a 46 M [] diabetes hypertension renal failure CHF recently admitted to the ICU discharged about 5 days ago for the last 2 or 3 days he has had a cough and progressively worsening shortness of breath and edema he was restarted on Lasix took first dose today his urine outputs and bowel habits have been normal. His shortness of breath see Bhavik was brought in by family his pulse ox on room air was about 90% he is not known to require oxygen on oxygen patient states he feels better he is awake and alert answering questions he has obvious facial lid edema his airways intact he is awake and alert Physical Examination: [] Afebrile to the vital signs as above he has obvious again facial edema his airways intact his mucous membranes seem dry his neck is supple his heart tones are distant his lungs are diminished at the bases the abdomen is obese and slightly distended but nontender he has Kirill wraps around his lower extremities related to the edema management the edema is about 3+ he has no complaints of pain to his feet the feet are symmetrically warm neurologically he is awake alert moving all 4 he has no history of DVT or PE Test Results: [] Emergency Department Course and Treatment: [] All the above a comprehensive evaluations pursued Chest x-ray shows signs of CHF his BNP is about 400, his troponin is still pending, his EKG shows a sinus with nothing acute the rest of his labs are generally unremarkable his creatinine is 2.70 he did urinate here in the department he was given Lasix 60 mg IV, he is feeling better he is resting more comfortably but not well enough for discharge he has been on all his meds he appears to have failed outpatient management given all the above hypoxia on presentation I have asked the medicine service to see him for admission, they will check his troponin, there is no signs of cardiopulmonary failure or distress at this time Treatment Plan: [] Disposition: [] Stable stable admit Impression: [] Congestive heart failure, acute chronic renal insufficiency, acute on room air, hypertension, history of respiratory failure This note was generated with [employer] dictation software. It may contain incorrect words, spelling, and punctuation that were not noted in review of the chart prior to signing ED Disposition - Plan for ED Patient: Chief Complaint: Shortness of Breath Referrals: Zaida Mcneil MD [Primary Care Provider] -
--- NOTE | 2017-11-28 09:02 | VDLE_ITS ---
Reason For Study: swelling RIGHT LEFT GSV is normal. GSV is normal. CFV is compressible, spontaneous, phasic, CFV is compressible, spontaneous, phasic, competent and demonstrates normal competent, and demonstrates normal augmentation. augmentation. FV is compressible, spontaneous, phasic, FV is compressible, spontaneous, phasic, competent and demonstrates normal competent and demonstrates normal augmentation. augmentation. POP V is compressible, spontaneous, phasic, POP V is compressible, spontaneous, phasic, competent and demonstrates normal competent and demonstrates normal augmentation. augmentation. T/P Trunk is compressible. T/P Trunk is compressible. PTV is compressible. PTV is compressible. RT PerV is compressible. LT PerV is compressible. Procedure Exam performed portable in ED. The exam was diagnostic. A preliminary report was called and/or faxed to [facility]. Interpretation Summary 1. Bilateral lower extremities with no DVT or SVT. Ordering Physician: Bandar Nick Performed By: Jonny Mills RVT
[2017-11-28] MEDS: Ipratropium/Albuterol Sulfate 3 ML AMPUL.NEB INHALATION (09:04)
[2017-11-28 09:25] LABS: Absolute Lymphocyte Count 0.97 X10^3/ul (0.83-4.51); Absolute Neutrophil Count 6.4 X10^3/uL (2.0-7.7); Basophil# 0.02 X10^3/uL; Basophil% 0.2 % (0-1); Eosinophil# 0.05 X10^3/uL; Eosinophils% 0.6 % (0-5); Hematocrit 32.8 % (40-54); Hemoglobin 11.2 g/dl (13.0-16.5); Lymphocyte # 0.97 X10^3/ul (4.0); Lymphocyte % 11.8 % (19-41); Mean Corp Hgb Conc 34.1 g/gl (32-36); Mean Corpuscular Hgb 29.5 pg (27.0-32.0); Mean Corpuscular Volume 86.3 fL (80-94); Mean Platelet Vol. 9.7 fl (6.2-12.0); Monocyte% 9.7 % (0-10); Neutrophil # 6.35 X10^3/uL (2.7-7.7); Neutrophil % 77.5 % (47-70); Platelet Count 244 K/mm3 (150-450); RBC Distribution Width CV 13.2 % (11.6-14.6); RBC Distribution Width SD 40.4 fl (35.1-43.9); White Blood Count 8.2 K/mm3 (4.4-11.0)
[2017-11-28 09:26] LABS: POSITIVE COUNT NO; POSITIVE DIFFERENTIAL NO; POSITIVE MORPHOLOGY NO
[2017-11-28 09:34] LABS: Anion Gap 8 (5-15); BUN 50 mg/dL (7-18); BUN/Creat Ratio 18.5 RATIO (10-20); Calcium,Total 7.8 mg/dL (8.5-10.1); Chloride 106 mmol/L (98-107); EST Glomerular Filtration Rate 27 mL/min (>60); Est Glom Filt Rate - Afr Amer 33 mL/min (>60); Estimated Creatinine Clearance 32.37 ml/min; Glucose 354 mg/dL (74-106); Potassium 4.6 mmol/L (3.5-5.1); Sodium Level 141 mmol/L (136-145)
[2017-11-28 09:46] LABS: Lactic Acid 2.3 mmol/L (0.4-2.0)
[2017-11-28 09:50] LABS: BNP,B-Type NATRIURETIC PEPTIDE 388.9 pg/mL (0-100)
--- NOTE | 2017-11-28 10:46 | NURSING ---
DR GAINES FOR DR AVELAR
--- NOTE | 2017-11-28 10:53 | NURSING ---
PCU ACUTE CHF EX[facility] PAINTS[facility]
[2017-11-28] MEDS: morphine 8 MG/ML Syringe 6 MG IV (11:16)
[2017-11-28] MEDS: Ondansetron 4 MG/2 ML Vial IV (11:17)
[2017-11-28] MEDS: Furosemide 100 MG/10 ML Vial 60 MG IV (11:17)
[2017-11-28 13:17] LABS: Reflex Lactate? Y
[2017-11-28 14:16] LABS: Lactic Acid 0.9 mmol/L (0.4-2.0)
--- NOTE | 2017-11-28 14:19 | CON.PCM_ITS ---
Consultation - Renal 11/28/17 PCP/ Referring MD: Requesting physician: Donna Araya Primary care physician: Zaida Mcneil Reason for Consultation:: CKD stage 3 - History of Present Illness History of Present Illness: The patient is a 46 M with CKD stage 3 with baseline creatinine of 2.5-2.7 presents with increased shortness of breath and leg edema. He was seen on initial consult on 11/21/17 during last hospitalization to ICU with congestive heart failure hypertensive emergency with blood pressure of 200s over 120. His blood pressure is under good control currently. He has a history of noncompliance with diabetes and medications. He was discharged to home with dietary education on low-sodium and diabetic diet. He admits to eating pizza, hot dogs, frozen dinners at home since discharge from the hospital. He does not know what his Lasix doses at home. Appetite has been good without nausea or vomiting. Denied any abdominal pain or diarrhea. Denied any chest pain, near syncope, syncope or fall. He denied any fever chills with his cough. He had increased shortness of breath with supine position like a heavy weight was over him. Chest x-ray shows CHF pattern. Echocardiogram done on November 20 during prior hospitalization showed preserved LV function. He does not wear oxygen at home. He has sleep apnea but does not wear CPAP at night at home. He gets short winded with walking up steps. Troponin level was negative ?1. BNP was 388 on admission. - Allergies Allergies: Allergies No Known Allergies Allergy (Verified 11/28/17 08:44) - Current Medications Current Medications: Current Medications Acetaminophen (Tylenol) 650 mg PO Q6H PRN PRN PRN Reason: Mild Pain (scale 0-3)/T>100.7 Bisacodyl (Dulcolax) 5 mg PO DAILY PRN PRN PRN Reason: Constipation Furosemide (Lasix) 40 mg IV BIDLX HEDY Heparin Sodium (Porcine) () 5,000 units SC BID HEDY Magnesium Hydroxide (Milk Of Magnesia) 30 ml PO DAILY PRN PRN Reason: Constipation Nutritional Formula (Lactose Free) (Glucerna Shake) 120 ml PO TIDCM HEDY Ondansetron HCl (Zofran) 4 mg IV Q8H PRN PRN PRN Reason: NAUSEA Psyllium Hydrophilic Mucilloid (Metamucil) 1 packet PO DAILY PRN PRN PRN Reason: CONSTIPATION Sodium Chloride () 5 - 30 ml IV UD PRN PRN Reason: SALINE FLUSH - Past Medical History Past Medical History (Chronic Problems): Chronic Problems Noncompliance (Chronic) Diabetic neuropathy (Chronic) Diabetic nephropathy (Chronic) Diabetic retinopathy (Chronic) HTN (hypertension) (Chronic) HLD (hyperlipidemia) (Chronic) Blind left eye (Chronic) Diabetes mellitus type II, uncontrolled (Chronic) Obesity (BMI 30.0-34.9) (Chronic) Anxiety and depression (Chronic) GERD (gastroesophageal reflux disease) (Chronic) Chewing tobacco nicotine dependence (Chronic) CKD (chronic kidney disease) stage 3, GFR 30-59 ml/min (Chronic) Leg edema, right (Chronic) History of acute myocardial infarction (Chronic) - Past Surgical History Surgical History: - - Cholecystectomy, left retinal tear repair attempts, right eye laser surgery. - Social History Marital Status: Smoking Status: Never smoker - Family History Maternal History Items: Heart Disease Paternal History Items: Cancer - Father w/ Colon CA. Sibling History Items: Diabetes - sister, brother who passed, no kidney disease Review of Systems Constitutional: Denies: Anorexia, Chills, Fever, Weakness, Fatigue Eyes: Denies: Blurred vision HEENT: Denies: Head Aches Cardiovascular: Reports: Edema, Orthopnea. Denies: Chest Pain, Light Headedness , Palpitations, Syncope Respiratory: Reports: Cough, Shortness of breath upon exertion, Wheezing. Denies: Hemoptysis Gastrointestinal: Denies: Abdominal Pain, Constipation, Diarrhea, Nausea, Vomiting Genitourinary: Denies: Dysuria, Hematuria Musculoskeletal: Reports: - - Swelling bilateral lower extremities. Denies: Arm Pain, Back Pain Neurological: Denies: Focal weakness, Tremor, Seizures Hematologic/ Lymphatic: Reports: Anemia. Denies: Hx of blood clot - Physical Exam General: Alert, Oriented x3, Cooperative, No apparent distress HEENT: PERRLA, EOMI Oral: Moist Mucosa Neck: Supple Lungs: Clear to auscultation Cardiovascular: Regular rate Abdomen: Bowel Sounds Present, Soft, Non Tender, Non-Distended, Obese Extremities: Edema - 2+ pitting BLE Skin: No rashes Musculoskeletal: No Muscle Wasting Neurological: Cranial nerves II-XII grossly intact Psych/Mental Status: Normal Affect, Appropriate, Alert and oriented to time, place, person, mood and affect Vital Signs Temp Pulse Resp BP Pulse Ox 97.8 F 74 20 H 123/76 H 97 11/28/17 12:40 11/28/17 12:48 11/28/17 12:40 11/28/17 12:40 11/28/17 12:40 Oxygen Flow Rate (L/min) 4 Oxygen Delivery Method Nasal Cannula Weight: 108.4 kg Body Mass Index (BMI) 36.3 Laboratory Tests Past 24 Hrs 11/28/17 11/28/17 12:55 13:47 Lactic Acid Pending Troponin I < 0.02 Clinical Impression(s) from Imaging Studies Chest X-Ray 11/28/17 09:00 IMPRESSION: Findings in keeping with CHF. Increased right infrahilar markings. Follow-up is recommended. Electronically Signed: Tristan France MD at 9:37 EDT Tel [phone], Service support , Assessment/Plan 1. CKD stage III due to diabetic nephropathy, hypertensive nephrosclerosis. Renal function at baseline. 2. History of noncompliance with medications, diet, and diabetes. 3. DM type II on insulin therapy. 4. Hypertension with stable blood pressure 5. Dyspnea with hypoxia. Chest x-ray with CHF pattern. BNP was 388 negative troponin ?1. Continue with Lasix. 6. 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 7. Will need further education on low sodium diet, diabetic diet.
[2017-11-28 16:50] LABS: Bedside Glucose 321 mg/dL (70-110)
--- NOTE | 2017-11-28 17:30 | PCM.HP.STD ---
Problem List (1) Diastolic congestive heart failure Status: Acute Qualifiers: Heart failure chronicity: acute on chronic Qualified Code(s): I50.33 - Acute on chronic diastolic (congestive) heart failure (2) HTN (hypertension) Status: Chronic Qualifiers: Hypertension type: essential hypertension Qualified Code(s): I10 - Essential (primary) hypertension (3) HLD (hyperlipidemia) Status: Chronic Qualifiers: Hyperlipidemia type: unspecified Qualified Code(s): E78.5 - Hyperlipidemia, unspecified (4) Diabetes mellitus type II, uncontrolled Status: Chronic Qualifiers: Diabetes mellitus fci insulin use: with fci use Diabetes mellitus complication status: with unspecified complications Qualified Code(s): E11.8 - Type 2 diabetes mellitus with unspecified complications; E11.65 - Type 2 diabetes mellitus with hyperglycemia; Z79.4 - terminal manager (current) use of insulin (5) CKD (chronic kidney disease) stage 3, GFR 30-59 ml/min Status: Chronic History of Present Illness Date of Admission: 11/28/17 Chief Complaint: Progressive SOB - Ongoing for 4 days The patient is a 46 year old M with PMHx of poorly controlled type 2 diabetes mellitus, complicated by diabetic retinopathy in the right eye, blindness in the left eye, diabetic peripheral polyneuropathy, recently discharged in 21 November 2017 after he was admitted with headache, vision changes, tinnitus and managed as acute on chronic diastolic CHF, hypertensive emergency found to have nephrotic range proteinuria. Patient states he was not discharged on Lasix, but noticed progressive shortness of breath as well as weight gain as well as bilateral leg swelling ongoing for the past 4 days. He had seen his primary care doctor yesterday and was just started on Lasix. His noted that he was progressively short of breath and tired and was having increasing work of breathing. In the ED, his pulse ox was 90% on room air was normal and was having increasing work of breathing. History was consistent with CHF. His BNP was 388. EKG shows no acute ST-T changes. Patient had a creatinine of 2.70. Past Medical History Past Medical History (Chronic Problems): Chronic Problems Noncompliance (Chronic) Diabetic neuropathy (Chronic) Diabetic nephropathy (Chronic) Diabetic retinopathy (Chronic) HTN (hypertension) (Chronic) HLD (hyperlipidemia) (Chronic) Blind left eye (Chronic) Diabetes mellitus type II, uncontrolled (Chronic) Obesity (BMI 30.0-34.9) (Chronic) Anxiety and depression (Chronic) GERD (gastroesophageal reflux disease) (Chronic) Chewing tobacco nicotine dependence (Chronic) CKD (chronic kidney disease) stage 3, GFR 30-59 ml/min (Chronic) Leg edema, right (Chronic) History of acute myocardial infarction (Chronic) Allergies No Known Allergies Allergy (Verified 11/28/17 08:44) Home Medications: Ambulatory Orders Medication Instructions Recorded Gabapentin [Neurontin] 300 mg PO TIDCM 07/15/13 Insulin Glargine [Lantus SoloStar 60 units SC QHS 07/15/13 Pen] Amlodipine [Norvasc] 5 mg PO DAILY 05/06/17 Bupropion HCl [Wellbutrin Xl] 300 mg PO DAILY 05/06/17 Aspirin 81 mg PO DAILY 11/19/17 Atorvastatin Calcium [Lipitor] 20 mg PO DAILY 11/19/17 Atenolol [Tenormin (Beta Silvana)] 100 mg PO DAILY 11/28/17 Furosemide [Lasix] 20 mg PO DAILY 11/28/17 Hydrochlorothiazide [Hctz] 25 mg PO DAILY 11/28/17 Insulin Aspart [Novolog Flexpen] 15 units SC TIDCM 11/28/17 Lisinopril [Zestril] 40 mg PO DAILY 11/28/17 Potassium Chloride 10 meq PO BID 11/28/17 Ranitidine HCl [Zantac] 300 mg PO DINNER 11/28/17 Surgical History: cholecystectomy, - - Cholecystectomy, left retinal tear repair attempts, right eye laser surgery. Smoking Status: Never smoker - *Family History Maternal History Items: Heart Disease Paternal History Items: Cancer - Father w/ Colon CA. Sibling History Items: Diabetes - sister, brother who passed, no kidney disease Review of Systems Constitutional: Reports: Anorexia, Weakness. Denies: Chills, Fever, Night Sweats, Weight Change Eyes: Denies: Blurred vision, Cataracts, Conjunctivae Inflammation, Pain, Redness HEENT: Denies: Difficulty Hearing, Difficulty Swallowing, Head Aches, Hearing Changes, Sinus Congestion, Sinus Drainage Cardiovascular: Denies: Chest Pain, Claudication, Chest Pressure, Orthopnea, Palpitations, Paroxysmal Noc. Dyspnea Respiratory: Denies: Cough, Hemoptysis, Shortness of breath at rest, Shortness of breath upon exertion, Sputum production Gastrointestinal: Denies: Abdominal Pain, Constipation, Hematemesis, Nausea, Vomiting Genitourinary: Denies: Dysuria, Incontinence Musculoskeletal: Denies: Joint Pain, Joint stiffness, Joint swelling, Joint Tenderness Skin: Denies: Rash, Skin Changes, Wounds Neurological: Denies: Numbness, Tingling, Focal weakness Psychiatric: Denies: Anxiety, Depression, Homicidal Ideations, Suicidal Ideations Hematologic/ Lymphatic: Denies: Easy Bruising, Easy Bleeding VTE Information - Inpt Only VTE Present on Admission: No VTE Pharm Prophylaxis ordered?: Yes - Physical Exam General: Alert, Oriented x3, Cooperative, No apparent distress HEENT: Atraumatic, PERRLA, EOMI, Normocephalic Oral: Moist Mucosa Neck: Supple Lungs: Clear to auscultation, Normal air movement Cardiovascular: Regular rate, Regular Rhythm, Normal S1, Normal S2 Abdomen: Bowel Sounds Present, Soft, Non Tender, Non-Distended, No Hepato-splenomegaly Extremities: No edema Skin: No rashes Musculoskeletal: No Tenderness to Palpation of Joints or Extremities Lymphatic: No Cervical, Supraclavicular, or Inguinal Adenopathy Neurological: Cranial nerves II-XII grossly intact, Neuro grossly intact, Motor Exam 5/5 strength throughout Psych/Mental Status: Normal Affect, Appropriate Vital Signs Temp Pulse Resp BP Pulse Ox 97.8 F 76 20 H 123/76 H 97 11/28/17 12:40 11/28/17 14:55 11/28/17 12:40 11/28/17 12:40 11/28/17 12:40 Oxygen Flow Rate (L/min) 4 Oxygen Delivery Method Nasal Cannula Weight: 108.4 kg Body Mass Index (BMI) 36.3 Laboratory Tests Past 24 Hrs 11/28/17 11/28/17 12:55 13:47 Lactic Acid 0.9 Troponin I < 0.02 POC Glucose 11/28/17 16:47 POC Glucose 321 H Assessment/Plan 46 y/o male with PMHx of diastolic heart failure, hypertension, type 2 DM complicated by neuropathy, retinopathy, and nephropathy, recently admitted with acute on chronic diastolic heart failure and hypertensive emergency as well as nephrotic range proteinuria. Comes back with shortness of breath, weight gain, and bilateral leg swelling. 1. Acute exacerbation of chronic diastolic heart failure secondary to noncompliance and non-continuation of his Lasix, admitting BNP was elevated, chest x-ray consistent with heart failure. Plan: Admit to PCU, resume Lasix IV twice daily, daily weights, strict I's and O's, nephrology consult, follow-up with BMP, trend troponins, with aspirin, TOM inhibitor, beta-silvana, statin. 2. Type II DM complicated by nephropathy, neuropathy, adenopathy blood sugars uncontrolled, continue on home insulin regimen and monitor vitals closely. 3. CKD stage III, will consult nephrology to follow-up with us. 4. 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 Obesity, diet and exercise is recommended 6. CAD status post [place], aspirin, statin, beta-silvana, will continue to monitor on telemetry 7. DVT prophylaxis with heparin subcu Code Visit Inpatient E&M: 46627 Init Hosp L3
[2017-11-28] MEDS: Gabapentin 300 MG Capsule PO (17:34)
[2017-11-28] MEDS: Furosemide 40 MG/4 ML Vial IV (17:35)
--- NOTE | 2017-11-28 17:45 | HP.PCM_ITS ---
Problem List (1) Diastolic congestive heart failure Status: Acute Qualifiers: Heart failure chronicity: acute on chronic Qualified Code(s): I50.33 - Acute on chronic diastolic (congestive) heart failure (2) HTN (hypertension) Status: Chronic Qualifiers: Hypertension type: essential hypertension Qualified Code(s): I10 - Essential (primary) hypertension (3) HLD (hyperlipidemia) Status: Chronic Qualifiers: Hyperlipidemia type: unspecified Qualified Code(s): E78.5 - Hyperlipidemia , unspecified (4) Diabetes mellitus type II, uncontrolled Status: Chronic Qualifiers: Diabetes mellitus longterm insulin use: with ad terminal makeup operator use Diabetes mellitus complication status: with unspecified complications Qualified Code(s) : E11.8 - Type 2 diabetes mellitus with unspecified complications; E11.65 - Type 2 diabetes mellitus with hyperglycemia; Z79.4 - skilled nursing (current) use of insulin (5) CKD (chronic kidney disease) stage 3, GFR 30-59 ml/min Status: Chronic History of Present Illness Date of Admission: 11/28/17 Chief Complaint: Progressive SOB - Ongoing for 4 days The patient is a 46 year old M with PMHx of poorly controlled type 2 diabetes mellitus, complicated by diabetic retinopathy in the right eye, blindness in the left eye, diabetic peripheral polyneuropathy, recently discharged in 21 November 2017 after he was admitted with headache, vision changes, tinnitus and managed as acute on chronic diastolic CHF, hypertensive emergency found to have nephrotic range proteinuria. Patient states he was not discharged on Lasix, but noticed progressive shortness of breath as well as weight gain as well as bilateral leg swelling ongoing for the past 4 days. He had seen his primary care doctor yesterday and was just started on Lasix. His noted that he was progressively short of breath and tired and was having increasing work of breathing. In the ED, his pulse ox was 90% on room air was normal and was having increasing work of breathing. History was consistent with CHF. His BNP was 388. EKG shows no acute ST-T changes. Patient had a creatinine of 2.70. Past Medical History Past Medical History (Chronic Problems): Chronic Problems Noncompliance (Chronic) Diabetic neuropathy (Chronic) Diabetic nephropathy (Chronic) Diabetic retinopathy (Chronic) HTN (hypertension) (Chronic) HLD (hyperlipidemia) (Chronic) Blind left eye (Chronic) Diabetes mellitus type II, uncontrolled (Chronic) Obesity (BMI 30.0-34.9) (Chronic) Anxiety and depression (Chronic) GERD (gastroesophageal reflux disease) (Chronic) Chewing tobacco nicotine dependence (Chronic) CKD (chronic kidney disease) stage 3, GFR 30-59 ml/min (Chronic) Leg edema, right (Chronic) History of acute myocardial infarction (Chronic) Allergies No Known Allergies Allergy (Verified 11/28/17 08:44) Home Medications: Ambulatory Orders Medication Instructions Recorded Gabapentin [Neurontin] 300 mg PO TIDCM 07/15/13 Insulin Glargine [Lantus SoloStar 60 units SC QHS 07/15/13 Pen] Amlodipine [Norvasc] 5 mg PO DAILY 05/06/17 Bupropion HCl [Wellbutrin Xl] 300 mg PO DAILY 05/06/17 Aspirin 81 mg PO DAILY 11/19/17 Atorvastatin Calcium [Lipitor] 20 mg PO DAILY 11/19/17 Atenolol [Tenormin (Beta Silvana)] 100 mg PO DAILY 11/28/17 Furosemide [Lasix] 20 mg PO DAILY 11/28/17 Hydrochlorothiazide [Hctz] 25 mg PO DAILY 11/28/17 Insulin Aspart [Novolog Flexpen] 15 units SC TIDCM 11/28/17 Lisinopril [Zestril] 40 mg PO DAILY 11/28/17 Potassium Chloride 10 meq PO BID 11/28/17 Ranitidine HCl [Zantac] 300 mg PO DINNER 11/28/17 Surgical History: cholecystectomy, - - Cholecystectomy, left retinal tear repair attempts, right eye laser surgery. Smoking Status: Never smoker - *Family History Maternal History Items: Heart Disease Paternal History Items: Cancer - Father w/ Colon CA. Sibling History Items: Diabetes - sister, brother who passed, no kidney disease Review of Systems Constitutional: Reports: Anorexia, Weakness. Denies: Chills, Fever, Night Sweats, Weight Change Eyes: Denies: Blurred vision, Cataracts, Conjunctivae Inflammation, Pain, Redness HEENT: Denies: Difficulty Hearing, Difficulty Swallowing, Head Aches, Hearing Changes, Sinus Congestion, Sinus Drainage Cardiovascular: Denies: Chest Pain, Claudication, Chest Pressure, Orthopnea, Palpitations, Paroxysmal Noc. Dyspnea Respiratory: Denies: Cough, Hemoptysis, Shortness of breath at rest, Shortness of breath upon exertion, Sputum production Gastrointestinal: Denies: Abdominal Pain, Constipation, Hematemesis, Nausea, Vomiting Genitourinary: Denies: Dysuria, Incontinence Musculoskeletal: Denies: Joint Pain, Joint stiffness, Joint swelling, Joint Tenderness Skin: Denies: Rash, Skin Changes, Wounds Neurological: Denies: Numbness, Tingling, Focal weakness Psychiatric: Denies: Anxiety, Depression, Homicidal Ideations, Suicidal Ideations Hematologic/ Lymphatic: Denies: Easy Bruising, Easy Bleeding VTE Information - Inpt Only VTE Present on Admission: No VTE Pharm Prophylaxis ordered?: Yes - Physical Exam General: Alert, Oriented x3, Cooperative, No apparent distress HEENT: Atraumatic, PERRLA, EOMI, Normocephalic Oral: Moist Mucosa Neck: Supple Lungs: Clear to auscultation, Normal air movement Cardiovascular: Regular rate, Regular Rhythm, Normal S1, Normal S2 Abdomen: Bowel Sounds Present, Soft, Non Tender, Non-Distended, No Hepato- splenomegaly Extremities: No edema Skin: No rashes Musculoskeletal: No Tenderness to Palpation of Joints or Extremities Lymphatic: No Cervical, Supraclavicular, or Inguinal Adenopathy Neurological: Cranial nerves II-XII grossly intact, Neuro grossly intact, Motor Exam 5/5 strength throughout Psych/Mental Status: Normal Affect, Appropriate Vital Signs Temp Pulse Resp BP Pulse Ox 97.8 F 76 20 H 123/76 H 97 11/28/17 12:40 11/28/17 14:55 11/28/17 12:40 11/28/17 12:40 11/28/17 12:40 Oxygen Flow Rate (L/min) 4 Oxygen Delivery Method Nasal Cannula Weight: 108.4 kg Body Mass Index (BMI) 36.3 Laboratory Tests Past 24 Hrs 11/28/17 11/28/17 12:55 13:47 Lactic Acid 0.9 Troponin I < 0.02 POC Glucose 11/28/17 16:47 POC Glucose 321 H Assessment/Plan 46 y/o male with PMHx of diastolic heart failure, hypertension, type 2 DM complicated by neuropathy, retinopathy, and nephropathy, recently admitted with acute on chronic diastolic heart failure and hypertensive emergency as well as nephrotic range proteinuria. Comes back with shortness of breath, weight gain, and bilateral leg swelling. 1. Acute exacerbation of chronic diastolic heart failure secondary to noncompliance and non-continuation of his Lasix, admitting BNP was elevated, chest x-ray consistent with heart failure. Plan: Admit to PCU, resume Lasix IV twice daily, daily weights, strict I's and O 's, nephrology consult, follow-up with BMP, trend troponins, with aspirin, TOM inhibitor, beta-silvana, statin. 2. Type II DM complicated by nephropathy, neuropathy, adenopathy blood sugars uncontrolled, continue on home insulin regimen and monitor vitals closely. 3. CKD stage III, will consult nephrology to follow-up with us. 4. 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 Obesity, diet and exercise is recommended 6. CAD status post [place], aspirin, statin, beta-silvana, will continue to monitor on telemetry 7. DVT prophylaxis with heparin subcu Code Visit Inpatient E&M: 09297 Init Hosp L3
[2017-11-28] MEDS: Famotidine 20 MG Tablet PO (17:48)
[2017-11-28] MEDS: Atorvastatin Calcium 20 MG Tablet PO (22:24)
[2017-11-28 22:36] LABS: Bedside Glucose 288 mg/dL (70-110)
[2017-11-28] MEDS: Acetaminophen 325 MG Tablet 650 MG PO (23:12)
[2017-11-29] VITALS (15 sets, daily range): BP systolic 119–153; BP diastolic 51–79; PULSE 65–85; RESP 18; TEMP 36.8–37.4; O2SAT 92–96
[2017-11-29 06:10] LABS: Hematocrit 32.8 % (40-54); Mean Corp Hgb Conc 33.5 g/gl (32-36); Mean Corpuscular Hgb 29.9 pg (27.0-32.0); Mean Corpuscular Volume 89.1 fL (80-94); Mean Platelet Vol. 9.6 fl (6.2-12.0); Platelet Count 255 K/mm3 (150-450); RBC Distribution Width CV 13.2 % (11.6-14.6); RBC Distribution Width SD 41.9 fl (35.1-43.9); Red Blood Count 3.68 M/mm3 (4.6-6.2); White Blood Count 7.8 K/mm3 (4.4-11.0)
[2017-11-29 06:12] LABS: Scan Indicated on CBC? Y/N NO
[2017-11-29 06:27] LABS: Anion Gap 6 (5-15); BUN 57 mg/dL (7-18); Calcium,Total 8.2 mg/dL (8.5-10.1); Chloride 103 mmol/L (98-107); Creatinine, Serum 3.35 mg/dL (0.70-1.30); EST Glomerular Filtration Rate 21 mL/min (>60); Est Glom Filt Rate - Afr Amer 25 mL/min (>60); Estimated Creatinine Clearance 26.09 ml/min; Glucose 216 mg/dL (74-106); Sodium Level 138 mmol/L (136-145)
[2017-11-29 07:00] LABS: Bedside Glucose 199 mg/dL (70-110)
[2017-11-29] MEDS: buPROPion (XL) 300 MG TABLET.XL PO (09:05)
[2017-11-29] MEDS: Atenolol 100 MG Tablet PO (09:05)
[2017-11-29] MEDS: amLODIPine 5 MG Tablet PO (09:05)
[2017-11-29] MEDS: Gabapentin 300 MG Capsule PO ×3 (09:06→17:16)
[2017-11-29] MEDS: Aspirin 81 MG TAB.CHEW PO (09:06)
[2017-11-29] MEDS: Furosemide 20 MG/2 ML VIAL IV ×2 (09:08→17:17)
--- NOTE | 2017-11-29 09:31 | CASEMGMT ---
READMISSION ASSESSMENT: LACE Strata: 3 Readmission Date: 11/28/17 Physician: Dr. Salomon Initial Admission Date: 11/19/17 Discharge Date: 11/21/17 Physician: Dr. Fang PCP: Dr. Mcneil- Initial Hospital Follow-Up scheduled for 11/26/17-patient did attend Specialists: LETTY Adams (New patient Appnt scheduled for 12/17/17 at 1030 Hospitalizations in the last 6 months: 2 PMHX: CHF, COPD, HTN, Hypokalemia, Diabetes Type II, Diabetic neuropathy, nephrotpathy, retinopathy, HLD, Blind left eye, Obesity, Anxiety, Depression, GERD, CKD Stg III, Chronic ulcer RLE, Cellulitis RLE, AK Initial Dx: Hypertensive Urgency, CHF, ILDA Readmission Dx: CHF Insurance: [employer] Prescription Coverage: Yes Patient was seen by case management during last admission, 11/19-11/21/17, and follow-up appointments were scheduled. Per review of EMR, ANDER GUERRA notes Dr. Fang provided patient with specific discharge instructions re: management of chronic diseases. A referral was made to , but patient was discharged prior to being seen. RN CHARLIE notes per SW documentation written by Kristine Hassan, was going to reach out post discharge to follow-up. Patient was also given other community mental health resources. Per review of EMR, a follow-up call was made to the patient 11/22/17 and patient reported a follow-up appnt was scheduled with his PCP or Saturday11/26/17, and that he had been feeling well since his discharge the day prior. This RN CM called 11/29/17 to confirm patient did attend hospital follow-up. Per SPECK DYER at Dr. Mcneil's office, the patient did go for his scheduled follow-up with Dr. Mcneil and was prescribed a 14 days supply of Lasix, 20 mg PO QD. ANDER CM called patient's pharmacy to verify patient was able to access the Lasix, and per Allyssa at [facility], the patient did spanish moss picker the medication. Per patient he has been taking as ordered. The patient does have a spouse, is independent with ADLs and IADLs and does not require DME for mobility. Per documentation, patient reported he had adequate supply of diabetes testing supplies, and understood how to monitor BGL. Readmission Summary: Patient presented to [facility] ED 11/28/17 with complaints of progressively worsening SOB and increased work of breathing associated with BLE swelling. Pulse ox on room air in the ED was 90%, BNP was 388, Creat was baseline at 2.70. Plan: Admit to PCU, resume Lasix IV twice daily, daily weights, strict I's and O's, nephrology consult, follow-up with BMP, trend troponins, with aspirin, TOM inhibitor, beta-elizabeth, statin. Transition Planning/Care Coordination: ANDER GUERRA made SW referral to follow-up on Behavioral Health referral. Per prior documentation, patient has not always chosen to adhere to the prescribed diabetes regimen, and a follow-up appnt is scheduled with LETTY Adams in December to assist the patient in diabetes management. The patient was referred to [facility] Diabetes Education and Support program. ANDER GUERRA will follow-up with patient to discuss continued management of chronic diseases. Disposition Plan: Home with support of spouse and with follow-up plans in place. [place] Dooley, RN-BC, CCM
[2017-11-29 11:20] LABS: Bedside Glucose 162 mg/dL (70-110)
--- NOTE | 2017-11-29 11:22 | CASEMGMT ---
Addendum entered by Kiara John 11/29/17 13:40: Received voice mail from Oscar at [facility]. He said that he did talk with patient and they are out of network for behavioral health for patient. He said he spoke with the caseworker protective services for patient at [facility] and she is working on finding other outpatient MH options. This is essentially what patient told ADDY. Kiara MAYORGA Original Note: ADDY spoke with patient to see if Behavioral Health followed up with him. He said that they did, but they do not take his insurance. ADDY then called [facility] and Oscar did follow up with patient. He was currently with a patient and they will have him call ADDY. Kiara RUIZ MSW
--- NOTE | 2017-11-29 12:18 | PCM.PN.REN ---
Subjective: has edema, SOB, cough. BP stable. Renal fxn worse on iv lasix.appetite good - Physical Exam General: Alert, Oriented x3, Cooperative Oral: Moist Mucosa Neck: Supple Lungs: Clear to auscultation Cardiovascular: Regular rate Abdomen: Bowel Sounds Present, Soft, Non Tender, Obese Extremities: Edema Psych/Mental Status: Normal Affect, Appropriate, Alert and oriented to time, place, person, mood and affect Vital Signs Temp Pulse Resp BP Pulse Ox 98.6 F 83 18 152/79 H 92 11/29/17 09:00 11/29/17 11:19 11/29/17 09:00 11/29/17 09:00 11/29/17 09:00 Oxygen Flow Rate (L/min) 2 Oxygen Delivery Method Nasal Cannula Weight: 109.9 kg Body Mass Index (BMI) 36.3 Intake and Output for Last 24 Hours 11/27/17 11/28/17 11/29/17 23:59 23:59 23:59 Intake Total 700 / 700 340 / 340 Output Total 400 / 400 100 / 100 Balance 300 / 300 240 / 240 Laboratory Tests Past 24 Hrs 11/28/17 11/28/17 11/28/17 12:55 13:47 18:01 WBC RBC Hgb Hct MCV MCH MCHC RDW RDW Differential Plt Count MPV Sodium Potassium Chloride Carbon Dioxide Anion Gap BUN Creatinine Estim Creat Clear Calc Est GFR (MDRD) Af Amer Est GFR (MDRD) Non-Af BUN/Creatinine Ratio Glucose Lactic Acid 0.9 Calcium Troponin I < 0.02 < 0.02 11/28/17 11/29/17 11/29/17 23:10 05:45 05:45 WBC 7.8 RBC 3.68 L Hgb 11.0 L Hct 32.8 L MCV 89.1 MCH 29.9 MCHC 33.5 RDW 13.2 RDW Differential 41.9 Plt Count 255 MPV 9.6 Sodium 138 Potassium 5.0 Chloride 103 Carbon Dioxide 29.0 Anion Gap 6 BUN 57 H Creatinine 3.35 H Estim Creat Clear Calc 26.09 Est GFR (MDRD) Af Amer 25 L Est GFR (MDRD) Non-Af 21 L BUN/Creatinine Ratio 17.0 Glucose 216 H Lactic Acid Calcium 8.2 L Troponin I < 0.02 POC Glucose 11/29/17 11/29/17 11/28/17 11:14 06:52 22:23 POC Glucose 162 H 199 H 288 H 11/28/17 16:47 POC Glucose 321 H Medical Necessity - Tobacco Use Smoking Status: Never smoker Assessment/Plan 1. CKD stage III due to diabetic nephropathy, hypertensive nephrosclerosis. Rise in creatinine likely prerenal. Hold lisinopril and lasix. Stop potassium supplement. LE edema likely from nephrotic proteinuiria 2. History of noncompliance with medications, diet, and diabetes. 3. DM type II on insulin therapy. Nephrotic proteinuria from diabetes 4. Hypertension with stable blood pressure 5. Dyspnea suspect due to sleep apnea, morbid obesity. BNP was not significantly elevated.
[2017-11-29 16:26] LABS: Bedside Glucose 137 mg/dL (70-110)
[2017-11-29] MEDS: Famotidine 20 MG Tablet PO (17:16)
--- NOTE | 2017-11-29 17:56 | PCM.PN.HOSP ---
Subjective: He was seen and examined. Feels very sleepy. Still has effects of 6 mg of morphine given from yesterday. Denies any chest pain no dizziness or palpitation. Remains on 2 L of oxygen. Objective: Physical Exam General: Alert, Oriented x3, Cooperative, No apparent distress, on 2L oxygen HEENT: Atraumatic, PERRLA, EOMI, Normocephalic, bilateral periorbital edema Oral: Moist Mucosa Neck: Supple Lungs: Clear to auscultation, diminished at the lung bases. Cardiovascular: Regular rate, Regular Rhythm, Normal S1, Normal S2 Abdomen: Bowel Sounds Present, Soft, Non Tender, Non-Distended, No Hepato-splenomegaly Extremities: No edema Skin: No rashes Musculoskeletal: No Tenderness to Palpation of Joints or Extremities Lymphatic: No Cervical, Supraclavicular, or Inguinal Adenopathy Neurological: Cranial nerves II-XII grossly intact, Neuro grossly intact, Motor Exam 5/5 strength throughout Psych/Mental Status: Normal Affect, Appropriate Vitals/I&O's: Vital Signs Temp Pulse Resp BP Pulse Ox 98.6 F 85 18 140/72 H 93 11/29/17 15:15 11/29/17 15:23 11/29/17 15:15 11/29/17 15:15 11/29/17 15:15 Oxygen Flow Rate (L/min) 2 Oxygen Delivery Method Nasal Cannula Weight: 109.9 kg Body Mass Index (BMI) 36.3 Intake and Output for Last 24 Hours 11/27/17 11/28/17 11/29/17 23:59 23:59 23:59 Intake Total 700 / 700 820 / 820 Output Total 400 / 400 575 / 575 Balance 300 / 300 245 / 245 Laboratory Results 11/28/17 18:01: Troponin I < 0.02 11/28/17 22:23: POC Glucose 288 H 11/28/17 23:10: Troponin I < 0.02 11/29/17 05:45: WBC 7.8, RBC 3.68 L, Hgb 11.0 L, Hct 32.8 L, MCV 89.1, MCH 29.9, MCHC 33.5, RDW 13.2, RDW Differential 41.9, Plt Count 255, MPV 9.6 11/29/17 05:45: Sodium 138, Potassium 5.0, Chloride 103, Carbon Dioxide 29.0, Anion Gap 6, BUN 57 H, Creatinine 3.35 H, Estim Creat Clear Calc 26.09, Est GFR (MDRD) Af Amer 25 L, Est GFR (MDRD) Non-Af 21 L, BUN/Creatinine Ratio 17.0, Glucose 216 H, Calcium 8.2 L 11/29/17 06:52: POC Glucose 199 H 11/29/17 11:14: POC Glucose 162 H 11/29/17 16:21: POC Glucose 137 H Current Medications Acetaminophen (Tylenol) 650 mg PO Q6H PRN PRN PRN Reason: Mild Pain (scale 0-3)/T>100.7 Last Admin: 11/28/17 23:12 Dose: 650 mg Amlodipine Besylate (Norvasc) 5 mg PO DAILY [facility] Last Admin: 11/29/17 09:05 Dose: 5 mg Aspirin (Aspirin, Baby) 81 mg PO DAILYCM [facility] Last Admin: 11/29/17 09:06 Dose: 81 mg Atenolol (Tenormin (Beta Elizabeth)) 100 mg PO DAILY [facility] Last Admin: 11/29/17 09:05 Dose: 100 mg Atorvastatin Calcium (Lipitor) 20 mg PO QHS [facility] Last Admin: 11/28/17 22:24 Dose: 20 mg Bisacodyl (Dulcolax) 5 mg PO DAILY PRN PRN PRN Reason: Constipation Bupropion HCl (Wellbutrin Xl) 300 mg PO DAILY [facility] Last Admin: 11/29/17 09:05 Dose: 300 mg Dextrose (D50w Syringe) 0 gm IV X1 PRN; Protocol PRN Reason: Hypoglycemia Famotidine (Pepcid) 20 mg PO DINNER [facility] Last Admin: 11/29/17 17:16 Dose: 20 mg Furosemide (Lasix) 20 mg IV BID@1000,1800 [facility] Last Admin: 11/29/17 17:17 Dose: 20 mg Gabapentin (Neurontin) 300 mg PO TIDCM [facility] Last Admin: 11/29/17 17:16 Dose: 300 mg Glucagon () 1 mg IM .X1 PRN PRN Reason: Hypoglycemia Heparin Sodium (Porcine) (Heparin Na) 5,000 unit SC BID [facility] Last Admin: 11/29/17 09:06 Dose: 500 u Insulin Aspart (Novolog Flexpen (Bkc)) 15 units SC TIDCM [facility] Last Admin: 11/29/17 17:16 Dose: 15 units Insulin Aspart (Novolog Flexpen ([facility])) 0 units SC ACHS [facility] PRN Reason: Protocol Last Admin: 11/29/17 17:17 Dose: Not Given Insulin Detemir (Levemir ([facility])) 60 units SC QHS [facility] Last Admin: 11/28/17 22:24 Dose: 60 u Magnesium Hydroxide (Milk Of Magnesia) 30 ml PO DAILY PRN PRN Reason: Constipation Nutritional Formula (Lactose Free) (Glucerna Shake) 120 ml PO TIDCM [facility] Last Admin: 11/29/17 17:17 Dose: Not Given Ondansetron HCl (Zofran) 4 mg IV Q8H PRN PRN PRN Reason: NAUSEA Psyllium Hydrophilic Mucilloid (Metamucil) 1 packet PO DAILY PRN PRN PRN Reason: CONSTIPATION Sodium Chloride () 5 - 30 ml IV UD PRN PRN Reason: SALINE FLUSH Medical Necessity - Tobacco Use Smoking Status: Never smoker Assessment/Plan 46 y/o male with PMHx of diastolic heart failure, hypertension, type 2 DM complicated by neuropathy, retinopathy, and nephropathy, recently admitted with acute on chronic diastolic heart failure and hypertensive emergency as well as nephrotic range proteinuria. Comes back with shortness of breath, weight gain, and bilateral leg swelling. 1. Acute exacerbation of chronic diastolic heart failure secondary to noncompliance and non-continuation of his Lasix, on Lasix, will hold off Lasix on account of worsening kidney function, will follow strict fluid restriction, I & Os. 2. Type II DM complicated by nephropathy, neuropathy, adenopathy blood sugars are fairly uncontrolled, continue on home insulin regimen and monitor vitals closely. 3. ILDA on CKD stage III, lasix on hold, labs in am 4. Nephrotic range proteinuria likely secondary to type II DM, 5. Obesity, diet and exercise is recommended 6. CAD status post AL, aspirin, statin, beta-elizabeth, will continue to monitor on telemetry 7. DVT prophylaxis with heparin subcu Code Visit Inpatient E&M: [id number] [facility] L3
--- NOTE | 2017-11-29 18:01 | PN_ITS ---
Subjective: He was seen and examined. Feels very sleepy. Still has effects of 6 mg of morphine given from yesterday. Denies any chest pain no dizziness or palpitation. Remains on 2 L of oxygen. Objective: Physical Exam General: Alert, Oriented x3, Cooperative, No apparent distress, on 2L oxygen HEENT: Atraumatic, PERRLA, EOMI, Normocephalic, bilateral periorbital edema Oral: Moist Mucosa Neck: Supple Lungs: Clear to auscultation, diminished at the lung bases. Cardiovascular: Regular rate, Regular Rhythm, Normal S1, Normal S2 Abdomen: Bowel Sounds Present, Soft, Non Tender, Non-Distended, No Hepato- splenomegaly Extremities: No edema Skin: No rashes Musculoskeletal: No Tenderness to Palpation of Joints or Extremities Lymphatic: No Cervical, Supraclavicular, or Inguinal Adenopathy Neurological: Cranial nerves II-XII grossly intact, Neuro grossly intact, Motor Exam 5/5 strength throughout Psych/Mental Status: Normal Affect, Appropriate Vitals/I&O's: Vital Signs Temp Pulse Resp BP Pulse Ox 98.6 F 85 18 140/72 H 93 11/29/17 15:15 11/29/17 15:23 11/29/17 15:15 11/29/17 15:15 11/29/17 15:15 Oxygen Flow Rate (L/min) 2 Oxygen Delivery Method Nasal Cannula Weight: 109.9 kg Body Mass Index (BMI) 36.3 Intake and Output for Last 24 Hours 11/27/17 11/28/17 11/29/17 23:59 23:59 23:59 Intake Total 700 / 700 820 / 820 Output Total 400 / 400 575 / 575 Balance 300 / 300 245 / 245 Laboratory Results 11/28/17 18:01: Troponin I < 0.02 11/28/17 22:23: POC Glucose 288 H 11/28/17 23:10: Troponin I < 0.02 11/29/17 05:45: WBC 7.8, RBC 3.68 L, Hgb 11.0 L, Hct 32.8 L, MCV 89.1, MCH 29.9 , MCHC 33.5, RDW 13.2, RDW Differential 41.9, Plt Count 255, MPV 9.6 11/29/17 05:45: Sodium 138, Potassium 5.0, Chloride 103, Carbon Dioxide 29.0, Anion Gap 6, BUN 57 H, Creatinine 3.35 H, Estim Creat Clear Calc 26.09, Est GFR (MDRD) Af Amer 25 L, Est GFR (MDRD) Non-Af 21 L, BUN/Creatinine Ratio 17.0, Glucose 216 H, Calcium 8.2 L 11/29/17 06:52: POC Glucose 199 H 11/29/17 11:14: POC Glucose 162 H 11/29/17 16:21: POC Glucose 137 H Current Medications Acetaminophen (Tylenol) 650 mg PO Q6H PRN PRN PRN Reason: Mild Pain (scale 0-3)/T>100.7 Last Admin: 11/28/17 23:12 Dose: 650 mg Amlodipine Besylate (Norvasc) 5 mg PO DAILY [facility] Last Admin: 11/29/17 09:05 Dose: 5 mg Aspirin (Aspirin, Baby) 81 mg PO DAILYCM [facility] Last Admin: 11/29/17 09:06 Dose: 81 mg Atenolol (Tenormin (Beta Elizabeth)) 100 mg PO DAILY [facility] Last Admin: 11/29/17 09:05 Dose: 100 mg Atorvastatin Calcium (Lipitor) 20 mg PO QHS [facility] Last Admin: 11/28/17 22:24 Dose: 20 mg Bisacodyl (Dulcolax) 5 mg PO DAILY PRN PRN PRN Reason: Constipation Bupropion HCl (Wellbutrin Xl) 300 mg PO DAILY [facility] Last Admin: 11/29/17 09:05 Dose: 300 mg Dextrose (D50w Syringe) 0 gm IV X1 PRN; Protocol PRN Reason: Hypoglycemia Famotidine (Pepcid) 20 mg PO DINNER [facility] Last Admin: 11/29/17 17:16 Dose: 20 mg Furosemide (Lasix) 20 mg IV BID@1000,1800 [facility] Last Admin: 11/29/17 17:17 Dose: 20 mg Gabapentin (Neurontin) 300 mg PO TIDCM [facility] Last Admin: 11/29/17 17:16 Dose: 300 mg Glucagon () 1 mg IM .X1 PRN PRN Reason: Hypoglycemia Heparin Sodium (Porcine) (Heparin Na) 5,000 unit SC BID [facility] Last Admin: 11/29/17 09:06 Dose: 500 u Insulin Aspart (Novolog Flexpen (Bkc)) 15 units SC TIDCM [facility] Last Admin: 11/29/17 17:16 Dose: 15 units Insulin Aspart (Novolog Flexpen ([facility])) 0 units SC ACHS [facility] PRN Reason: Protocol Last Admin: 11/29/17 17:17 Dose: Not Given Insulin Detemir (Levemir ([facility])) 60 units SC QHS [facility] Last Admin: 11/28/17 22:24 Dose: 60 u Magnesium Hydroxide (Milk Of Magnesia) 30 ml PO DAILY PRN PRN Reason: Constipation Nutritional Formula (Lactose Free) (Glucerna Shake) 120 ml PO TIDCM [facility] Last Admin: 11/29/17 17:17 Dose: Not Given Ondansetron HCl (Zofran) 4 mg IV Q8H PRN PRN PRN Reason: NAUSEA Psyllium Hydrophilic Mucilloid (Metamucil) 1 packet PO DAILY PRN PRN PRN Reason: CONSTIPATION Sodium Chloride () 5 - 30 ml IV UD PRN PRN Reason: SALINE FLUSH Medical Necessity - Tobacco Use Smoking Status: Never smoker Assessment/Plan 46 y/o male with PMHx of diastolic heart failure, hypertension, type 2 DM complicated by neuropathy, retinopathy, and nephropathy, recently admitted with acute on chronic diastolic heart failure and hypertensive emergency as well as nephrotic range proteinuria. Comes back with shortness of breath, weight gain, and bilateral leg swelling. 1. Acute exacerbation of chronic diastolic heart failure secondary to noncompliance and non-continuation of his Lasix, on Lasix, will hold off Lasix on account of worsening kidney function, will follow strict fluid restriction, I & Os. 2. Type II DM complicated by nephropathy, neuropathy, adenopathy blood sugars are fairly uncontrolled, continue on home insulin regimen and monitor vitals closely. 3. ILDA on CKD stage III, lasix on hold, labs in am 4. Nephrotic range proteinuria likely secondary to type II DM, 5. Obesity, diet and exercise is recommended 6. CAD status post DC, aspirin, statin, beta-elizabeth, will continue to monitor on telemetry 7. DVT prophylaxis with heparin subcu Code Visit Inpatient E&M: [id number] [facility] L3
[2017-11-29 20:21] LABS: Bedside Glucose 117 mg/dL (70-110)
[2017-11-29] MEDS: Atorvastatin Calcium 20 MG Tablet PO (22:35)
[2017-11-29 22:45] LABS: Bedside Glucose 128 mg/dL (70-110)
[2017-11-30] VITALS (15 sets, daily range): BP systolic 147–161; BP diastolic 70–88; PULSE 73–86; RESP 16–20; TEMP 36.5–37; O2SAT 88–94
[2017-11-30 06:52] LABS: Albumin, Serum 2.1 g/dL (3.2-5.0); BUN 66 mg/dL (7-18); BUN/Creat Ratio 18.1 RATIO (10-20); Calcium,Total 8.3 mg/dL (8.5-10.1); Chloride 105 mmol/L (98-107); Creatinine, Serum 3.64 mg/dL (0.70-1.30); EST Glomerular Filtration Rate 19 mL/min (>60); Est Glom Filt Rate - Afr Amer 23 mL/min (>60); Estimated Creatinine Clearance 24.01 ml/min; Glucose 104 mg/dL (74-106); Phosphorus 4.9 mg/dL (2.5-4.9); Potassium 4.7 mmol/L (3.5-5.1); Sodium Level 140 mmol/L (136-145)
[2017-11-30 07:00] LABS: Bedside Glucose 85 mg/dL (70-110)
[2017-11-30] MEDS: Gabapentin 300 MG Capsule PO ×3 (08:19→17:25)
[2017-11-30] MEDS: Aspirin 81 MG TAB.CHEW PO (08:19)
[2017-11-30] MEDS: Magnesium Hydroxide 30 ML UDC PO (08:22)
--- NOTE | 2017-11-30 08:29 | BH.SGPN.T2 ---
Pt. complains of a stabbing pain upon palpation from top to bottom on the left abd close to the mid section; rate pain 5/10; Abd firm with hypoactive bowel sounds except right lower abd that is normative; complains of SOB. Primary RN notified
--- NOTE | 2017-11-30 09:28 | RAD_ITS ---
STUDY: X-RAY CHEST REASON FOR EXAM: Male, 46 years old. Nephrotic syndrome. TECHNIQUE: Single AP portable view of the chest. COMPARISON: November 28, 2017. FINDINGS: The lungs are underexpanded. There is heterogeneous bilateral basilar airspace consolidations and atelectasis. There is interstitial thickening visible in both lungs. There is a small left-sided pleural effusion. There is borderline cardiomegaly. Normal mediastinum and reena. There is prominence of the pulmonary hilar arteries without peripheral pulmonary vascular congestion. There is atherosclerotic calcification of the aortic arch with tortuosity. There is demineralization of the osseous structures. Normal visualized ribs, clavicles, and shoulders. There is no demonstrated abnormality of the visualized soft tissue structures of the upper abdomen. RAD/Chest 1 View (Portable) IMPRESSION: 1. Bilateral basilar airspace consolidations and/or atelectasis, similar to previous study. 2. Cardiomegaly and mild pulmonary congestion. Electronically Signed: Neli Mariscal MD at 12:07 EDT , Service support ,
[2017-11-30] MEDS: amLODIPine 5 MG Tablet PO (10:10)
[2017-11-30] MEDS: Atenolol 100 MG Tablet PO (10:10)
[2017-11-30] MEDS: buPROPion (XL) 300 MG TABLET.XL PO (10:10)
[2017-11-30 12:15] LABS: Bedside Glucose 143 mg/dL (70-110)
--- NOTE | 2017-11-30 14:32 | PCM.PN.HOSP ---
Subjective: Patient was seen and examined. He is on almost 4 L of oxygen. Wants to go home. Denies any worsening shortness of breath or chest pain or chest discomfort. No acute events overnight. Noted that his creatinine has gone up. Lasix has been held. Objective: Physical Exam General: Alert, Oriented x3, Cooperative, No apparent distress HEENT: Atraumatic, PERRLA, EOMI, Normocephalic Oral: Moist Mucosa Neck: Supple Lungs: Clear to auscultation, Normal air movement Cardiovascular: Regular rate, Regular Rhythm, Normal S1, Normal S2 Abdomen: Bowel Sounds Present, Soft, Non Tender, Non-Distended, No Hepato-splenomegaly Extremities: No edema Skin: No rashes Musculoskeletal: No Tenderness to Palpation of Joints or Extremities Lymphatic: No Cervical, Supraclavicular, or Inguinal Adenopathy Neurological: Cranial nerves II-XII grossly intact, Neuro grossly intact, Motor Exam 5/5 strength throughout Psych/Mental Status: Normal Affect, Appropriate Vitals/I&O's: Vital Signs Temp Pulse Resp BP Pulse Ox 98.5 F 77 16 147/81 H 94 11/30/17 10:04 11/30/17 11:41 11/30/17 10:04 11/30/17 10:04 11/30/17 10:04 Oxygen Flow Rate (L/min) 4 Oxygen Delivery Method Nasal Cannula Weight: 110.1 kg Body Mass Index (BMI) 36.3 Intake and Output for Last 24 Hours 11/28/17 11/29/17 11/30/17 23:59 23:59 23:59 Intake Total 700 / 700 1040 / 1040 280 / 280 Output Total 400 / 400 675 / 675 Balance 300 / 300 365 / 365 280 / 280 Laboratory Results 11/29/17 16:21: POC Glucose 137 H 11/29/17 19:58: POC Glucose 117 H 11/29/17 22:33: POC Glucose 128 H 11/30/17 05:25: Sodium 140, Potassium 4.7, Chloride 105, Carbon Dioxide 28.0, BUN 66 H, Creatinine 3.64 H, Estim Creat Clear Calc 24.01, Est GFR (MDRD) Af Amer 23 L, Est GFR (MDRD) Non-Af 19 L, BUN/Creatinine Ratio 18.1, Glucose 104, Calcium 8.3 L, Phosphorus 4.9, Albumin 2.1 L 11/30/17 06:54: POC Glucose 85 11/30/17 12:03: POC Glucose 143 H Current Medications Acetaminophen (Tylenol) 650 mg PO Q6H PRN PRN PRN Reason: Mild Pain (scale 0-3)/T>100.7 Last Admin: 11/28/17 23:12 Dose: 650 mg Amlodipine Besylate (Norvasc) 5 mg PO DAILY [facility] Last Admin: 11/30/17 10:10 Dose: 5 mg Aspirin (Aspirin, Baby) 81 mg PO DAILYCM [facility] Last Admin: 11/30/17 08:19 Dose: 81 mg Atenolol (Tenormin (Beta Elizabeth)) 100 mg PO DAILY [facility] Last Admin: 11/30/17 10:10 Dose: 100 mg Atorvastatin Calcium (Lipitor) 20 mg PO QHS [facility] Last Admin: 11/29/17 22:35 Dose: 20 mg Bisacodyl (Dulcolax) 5 mg PO DAILY PRN PRN PRN Reason: Constipation Bupropion HCl (Wellbutrin Xl) 300 mg PO DAILY [facility] Last Admin: 11/30/17 10:10 Dose: 300 mg Dextrose (D50w Syringe) 0 gm IV X1 PRN; Protocol PRN Reason: Hypoglycemia Famotidine (Pepcid) 20 mg PO DINNER [facility] Last Admin: 11/29/17 17:16 Dose: 20 mg Gabapentin (Neurontin) 300 mg PO TIDCM [facility] Last Admin: 11/30/17 12:08 Dose: 300 mg Glucagon () 1 mg IM .X1 PRN PRN Reason: Hypoglycemia Heparin Sodium (Porcine) (Heparin Na) 5,000 unit SC BID [facility] Last Admin: 11/30/17 10:09 Dose: 5,000 u Insulin Aspart (Novolog Flexpen (Bkc)) 0 units SC ACHS [facility] PRN Reason: Protocol Last Admin: 11/30/17 12:06 Dose: Not Given Insulin Aspart (Novolog Flexpen (Bkc)) 10 units SC TIDCM [facility] Last Admin: 11/30/17 12:07 Dose: 10 units Insulin Detemir (Levemir (Bkc)) 50 units SC QHS [facility] Last Admin: 11/30/17 10:17 Dose: Not Given Magnesium Hydroxide (Milk Of Magnesia) 30 ml PO DAILY PRN PRN Reason: Constipation Last Admin: 11/30/17 08:22 Dose: 30 ml Nutritional Formula (Lactose Free) (Glucerna Shake) 120 ml PO TIDCM [facility] Last Admin: 11/30/17 12:05 Dose: Not Given Ondansetron HCl (Zofran) 4 mg IV Q8H PRN PRN PRN Reason: NAUSEA Psyllium Hydrophilic Mucilloid (Metamucil) 1 packet PO DAILY PRN PRN PRN Reason: CONSTIPATION Sodium Chloride () 5 - 30 ml IV UD PRN PRN Reason: SALINE FLUSH Medical Necessity - Tobacco Use Smoking Status: Never smoker Assessment/Plan 46 y/o male with PMHx of diastolic heart failure, hypertension, type 2 DM complicated by neuropathy, retinopathy, and nephropathy, recently admitted with acute on chronic diastolic heart failure and hypertensive emergency as well as nephrotic range proteinuria. Comes back with shortness of breath, weight gain, and bilateral leg swelling. 1. Acute exacerbation of chronic diastolic heart failure secondary to noncompliance and non-continuation of his Lasix, off Lasix, unable to give Lasix on account, strict fluid restriction, I & Os. 2. Type II DM complicated by nephropathy, neuropathy, peripheral neuropathy, BS this morning is low, adjustments made to the insulin regimen, will continue on accucheks. 3. ILDA on CKD stage III, Cr is worse, off Lasix since 11/29/17, nephrology following, will continue to trend creatinine. 4. 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 Obesity, diet and exercise is recommended 6. CAD status post [place], aspirin, statin, beta-elizabeth, will continue to monitor on telemetry 7. DVT prophylaxis with heparin subcu Code Visit Inpatient E&M: 19690 Subs Hosp L2
--- NOTE | 2017-11-30 14:51 | PN_ITS ---
Subjective: Patient was seen and examined. He is on almost 4 L of oxygen. Wants to go home. Denies any worsening shortness of breath or chest pain or chest discomfort. No acute events overnight. Noted that his creatinine has gone up. Lasix has been held. Objective: Physical Exam General: Alert, Oriented x3, Cooperative, No apparent distress HEENT: Atraumatic, PERRLA, EOMI, Normocephalic Oral: Moist Mucosa Neck: Supple Lungs: Clear to auscultation, Normal air movement Cardiovascular: Regular rate, Regular Rhythm, Normal S1, Normal S2 Abdomen: Bowel Sounds Present, Soft, Non Tender, Non-Distended, No Hepato- splenomegaly Extremities: No edema Skin: No rashes Musculoskeletal: No Tenderness to Palpation of Joints or Extremities Lymphatic: No Cervical, Supraclavicular, or Inguinal Adenopathy Neurological: Cranial nerves II-XII grossly intact, Neuro grossly intact, Motor Exam 5/5 strength throughout Psych/Mental Status: Normal Affect, Appropriate Vitals/I&O's: Vital Signs Temp Pulse Resp BP Pulse Ox 98.5 F 77 16 147/81 H 94 11/30/17 10:04 11/30/17 11:41 11/30/17 10:04 11/30/17 10:04 11/30/17 10:04 Oxygen Flow Rate (L/min) 4 Oxygen Delivery Method Nasal Cannula Weight: 110.1 kg Body Mass Index (BMI) 36.3 Intake and Output for Last 24 Hours 11/28/17 11/29/17 11/30/17 23:59 23:59 23:59 Intake Total 700 / 700 1040 / 1040 280 / 280 Output Total 400 / 400 675 / 675 Balance 300 / 300 365 / 365 280 / 280 Laboratory Results 11/29/17 16:21: POC Glucose 137 H 11/29/17 19:58: POC Glucose 117 H 11/29/17 22:33: POC Glucose 128 H 11/30/17 05:25: Sodium 140, Potassium 4.7, Chloride 105, Carbon Dioxide 28.0, BUN 66 H, Creatinine 3.64 H, Estim Creat Clear Calc 24.01, Est GFR (MDRD) Af Amer 23 L, Est GFR (MDRD) Non-Af 19 L, BUN/Creatinine Ratio 18.1, Glucose 104, Calcium 8.3 L, Phosphorus 4.9, Albumin 2.1 L 11/30/17 06:54: POC Glucose 85 11/30/17 12:03: POC Glucose 143 H Current Medications Acetaminophen (Tylenol) 650 mg PO Q6H PRN PRN PRN Reason: Mild Pain (scale 0-3)/T>100.7 Last Admin: 11/28/17 23:12 Dose: 650 mg Amlodipine Besylate (Norvasc) 5 mg PO DAILY [facility] Last Admin: 11/30/17 10:10 Dose: 5 mg Aspirin (Aspirin, Baby) 81 mg PO DAILYCM [facility] Last Admin: 11/30/17 08:19 Dose: 81 mg Atenolol (Tenormin (Beta Elizabeth)) 100 mg PO DAILY [facility] Last Admin: 11/30/17 10:10 Dose: 100 mg Atorvastatin Calcium (Lipitor) 20 mg PO QHS [facility] Last Admin: 11/29/17 22:35 Dose: 20 mg Bisacodyl (Dulcolax) 5 mg PO DAILY PRN PRN PRN Reason: Constipation Bupropion HCl (Wellbutrin Xl) 300 mg PO DAILY [facility] Last Admin: 11/30/17 10:10 Dose: 300 mg Dextrose (D50w Syringe) 0 gm IV X1 PRN; Protocol PRN Reason: Hypoglycemia Famotidine (Pepcid) 20 mg PO DINNER [facility] Last Admin: 11/29/17 17:16 Dose: 20 mg Gabapentin (Neurontin) 300 mg PO TIDCM [facility] Last Admin: 11/30/17 12:08 Dose: 300 mg Glucagon () 1 mg IM .X1 PRN PRN Reason: Hypoglycemia Heparin Sodium (Porcine) (Heparin Na) 5,000 unit SC BID [facility] Last Admin: 11/30/17 10:09 Dose: 5,000 u Insulin Aspart (Novolog Flexpen (Bkc)) 0 units SC ACHS [facility] PRN Reason: Protocol Last Admin: 11/30/17 12:06 Dose: Not Given Insulin Aspart (Novolog Flexpen (Bkc)) 10 units SC TIDCM [facility] Last Admin: 11/30/17 12:07 Dose: 10 units Insulin Detemir (Levemir (Bkc)) 50 units SC QHS [facility] Last Admin: 11/30/17 10:17 Dose: Not Given Magnesium Hydroxide (Milk Of Magnesia) 30 ml PO DAILY PRN PRN Reason: Constipation Last Admin: 11/30/17 08:22 Dose: 30 ml Nutritional Formula (Lactose Free) (Glucerna Shake) 120 ml PO TIDCM [facility] Last Admin: 11/30/17 12:05 Dose: Not Given Ondansetron HCl (Zofran) 4 mg IV Q8H PRN PRN PRN Reason: NAUSEA Psyllium Hydrophilic Mucilloid (Metamucil) 1 packet PO DAILY PRN PRN PRN Reason: CONSTIPATION Sodium Chloride () 5 - 30 ml IV UD PRN PRN Reason: SALINE FLUSH Medical Necessity - Tobacco Use Smoking Status: Never smoker Assessment/Plan 46 y/o male with PMHx of diastolic heart failure, hypertension, type 2 DM complicated by neuropathy, retinopathy, and nephropathy, recently admitted with acute on chronic diastolic heart failure and hypertensive emergency as well as nephrotic range proteinuria. Comes back with shortness of breath, weight gain, and bilateral leg swelling. 1. Acute exacerbation of chronic diastolic heart failure secondary to noncompliance and non-continuation of his Lasix, off Lasix, unable to give Lasix on account, strict fluid restriction, I & Os. 2. Type II DM complicated by nephropathy, neuropathy, peripheral neuropathy, BS this morning is low, adjustments made to the insulin regimen, will continue on accucheks. 3. ILDA on CKD stage III, Cr is worse, off Lasix since 11/29/17, nephrology following, will continue to trend creatinine. 4. 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 Obesity, diet and exercise is recommended 6. CAD status post [place], aspirin, statin, beta-elizabeth, will continue to monitor on telemetry 7. DVT prophylaxis with heparin subcu Code Visit Inpatient E&M: 77590 Subs Hosp L2
[2017-11-30] MEDS: Bisacodyl 5 MG Tablet PO (15:36)
[2017-11-30] MEDS: Famotidine 20 MG Tablet PO (17:25)
[2017-11-30 17:45] LABS: Bedside Glucose 229 mg/dL (70-110)
[2017-11-30] MEDS: Atorvastatin Calcium 20 MG Tablet PO (22:56)
[2017-11-30 23:56] LABS: Bedside Glucose 271 mg/dL (70-110)
[2017-12-01] VITALS (24 sets, daily range): BP systolic 145–166; BP diastolic 77–104; PULSE 77–86; RESP 12–26; TEMP 36.7–37.2; O2SAT 89–96
[2017-12-01 03:21] LABS: Bedside Glucose 263 mg/dL (70-110)
[2017-12-01] MEDS: Albuterol 2.5 MG/3 ML VIAL.NEB. INHALATION (03:25)
--- NOTE | 2017-12-01 03:30 | RAD_ITS ---
STUDY: X-RAY CHEST REASON FOR EXAM: Male, 46 years old. Dyspnea TECHNIQUE: Single AP portable view of the chest. COMPARISON: Nov 30 2017 10:19am . FINDINGS: Ill-defined airspace densities are seen in the perihilar regions and lung bases suggesting pulmonary edema or pneumonia appear worse when compared to previous study. There is no demonstrated pleural abnormality. Normal size heart. Normal mediastinum and reena. Normal visualized pulmonary arteries. Normal visualized aortic arch and descending thoracic aorta. Normal visualized thoracic spine. Normal visualized ribs, clavicles, and shoulders. There is no demonstrated abnormality of the visualized soft tissue structures of the upper abdomen. RAD/Chest 1 View (Portable) IMPRESSION: Worsening pulmonary edema. Electronically Signed: Owen Del Valle MD at 4:44 EDT Tel , Service support ,
[2017-12-01] MEDS: Furosemide 40 MG/4 ML Vial IV (03:45)
[2017-12-01 03:46] LABS: Allen Test POS; Base Excess 0 mmol/L (-2 to +2); Bicarbonate 25.6 mmol/L (22-26); Blood Gas Specimen Type ART; O2 Delivery Device Nasal Can; PO2 60 mmHG (75-100); SITE R Radial; SO2 89 % (95-99); Time Given 335; Total Carbon Dioxide 27 mmol/L; pCO2 47.9 mmHg (35-45); pH 7.34 (7.35-7.45)
[2017-12-01] MEDS: 0.9% NaCl Peripheral Flush Adult/Peds IV ×2 (03:50→10:35)
[2017-12-01] MEDS: Ipratropium/Albuterol Sulfate 3 ML AMPUL.NEB INHALATION ×6 (04:10→23:33)
[2017-12-01 07:00] LABS: Albumin, Serum 2.2 g/dL (3.2-5.0); BUN 73 mg/dL (7-18); BUN/Creat Ratio 19.5 RATIO (10-20); Calcium,Total 8.4 mg/dL (8.5-10.1); Chloride 101 mmol/L (98-107); Creatinine, Serum 3.74 mg/dL (0.70-1.30); EST Glomerular Filtration Rate 18 mL/min (>60); Est Glom Filt Rate - Afr Amer 22 mL/min (>60); Estimated Creatinine Clearance 23.37 ml/min; Glucose 244 mg/dL (74-106); Phosphorus 4.8 mg/dL (2.5-4.9); Potassium 5.2 mmol/L (3.5-5.1); Sodium Level 136 mmol/L (136-145)
[2017-12-01 07:11] LABS: Bedside Glucose 207 mg/dL (70-110)
--- NOTE | 2017-12-01 08:38 | CPS ---
pt found with mask off. attempted to place mask back on but pt refused. pt placed back on 5 lpm nasal cannula. nurse aware.
[2017-12-01] MEDS: Gabapentin 300 MG Capsule PO ×3 (08:45→16:47)
[2017-12-01] MEDS: buPROPion (XL) 300 MG TABLET.XL PO (08:46)
[2017-12-01] MEDS: amLODIPine 5 MG Tablet PO (08:46)
[2017-12-01] MEDS: Atenolol 100 MG Tablet PO (08:46)
[2017-12-01] MEDS: Aspirin 81 MG TAB.CHEW PO (08:46)
[2017-12-01] MEDS: Furosemide 20 MG/2 ML VIAL IV (10:34)
[2017-12-01 11:56] LABS: Base Excess 3 mmol/L (-2 to +2); Bicarbonate 27.4 mmol/L (22-26); Blood Gas Specimen Type ART; O2 Delivery Device Nasal Can; PO2 71 mmHG (75-100); SITE L Brachial; SO2 94 % (95-99); Time Given 1150; Total Carbon Dioxide 29 mmol/L; pCO2 42.4 mmHg (35-45); pH 7.42 (7.35-7.45)
[2017-12-01 11:56] LABS: Bedside Glucose 106 mg/dL (70-110)
--- NOTE | 2017-12-01 13:05 | PCM.PN.HOSP ---
Subjective: Patient was seen and examined. Started on Bipap yesterday, given IV lasix also. Still SOB, unable to complete sentences, on increased amount of oxygen. Denies chest pain, dizziness, palpitations. Objective: Physical Exam General: Alert, Oriented x3, Cooperative, in mild respiratory distress HEENT: Atraumatic, PERRLA, EOMI, Normocephalic Oral: Moist Mucosa Neck: Supple Lungs: Clear to auscultation, Normal air movement Cardiovascular: Regular rate, Regular Rhythm, Normal S1, Normal S2 Abdomen: Bowel Sounds Present, Soft, Non Tender, Non-Distended, No Hepato-splenomegaly Extremities: No edema Skin: No rashes Musculoskeletal: No Tenderness to Palpation of Joints or Extremities Lymphatic: No Cervical, Supraclavicular, or Inguinal Adenopathy Neurological: Cranial nerves II-XII grossly intact, Neuro grossly intact, Motor Exam 5/5 strength throughout Psych/Mental Status: Normal Affect, Appropriate Vitals/I&O's: Vital Signs Temp Pulse Resp BP Pulse Ox 98.7 F 79 16 145/77 H 93 12/01/17 10:42 12/01/17 11:23 12/01/17 11:23 12/01/17 10:42 12/01/17 11:23 Oxygen Flow Rate (L/min) 5 Oxygen Delivery Method Nasal Cannula Weight: 112.9 kg Body Mass Index (BMI) 36.3 Intake and Output for Last 24 Hours 11/29/17 11/30/17 12/01/17 23:59 23:59 23:59 Intake Total 1040 / 1040 640 / 640 340 / 340 Output Total 675 / 675 2150 / 2150 1300 / 1300 Balance 365 / 365 -1510 / -1510 -960 / -960 Laboratory Results 11/30/17 17:21: POC Glucose 229 H 11/30/17 22:43: POC Glucose 271 H 12/01/17 03:15: POC Glucose 263 H 12/01/17 03:41: Specimen Type ART, Sample Site R Radial, pH 7.34 L, Bicarbonate Actual 25.6, POC Total CO2 27, Base Excess 0, O2 Saturation 89 L, ABG pCO2 47.9 H, ABG pO2 60 L, Joe Test POS, O2 Delivery Device Nasal Can, Liter Flow 5.0, Blood Gas Notified Whom NATHANAEL NORTON, Blood Gas Notified Time 335 12/01/17 05:24: Sodium 136, Potassium 5.2 H, Chloride 101, Carbon Dioxide 25.0, BUN 73 H, Creatinine 3.74 H, Estim Creat Clear Calc 23.37, Est GFR (MDRD) Af Amer 22 L, Est GFR (MDRD) Non-Af 18 L, BUN/Creatinine Ratio 19.5, Glucose 244 H, Calcium 8.4 L, Phosphorus 4.8, Albumin 2.2 L 12/01/17 07:07: POC Glucose 207 H 12/01/17 11:49: POC Glucose 106 12/01/17 11:52: Specimen Type ART, Sample Site L Brachial, pH 7.42, Bicarbonate Actual 27.4 H, POC Total CO2 29, Base Excess 3 H, O2 Saturation 94 L, ABG pCO2 42.4, ABG pO2 71 L, Joe Test NA, O2 Delivery Device Nasal Can, Liter Flow 5.0, Blood Gas Notified Whom [facility] , Blood Gas Notified Time 1150 Current Medications Acetaminophen (Tylenol) 650 mg PO Q6H PRN PRN PRN Reason: Mild Pain (scale 0-3)/T>100.7 Last Admin: 11/28/17 23:12 Dose: 650 mg Albuterol Sulfate (Ventolin Aerosols) 2.5 mg INHALATION Q2H PRN PRN PRN Reason: SOB &/OR WHEEZING Albuterol/Ipratropium (Duoneb) 3 ml INHALATION Q4HWA.RT [facility] Last Admin: 12/01/17 11:22 Dose: 3 ml Amlodipine Besylate (Norvasc) 5 mg PO DAILY [facility] Last Admin: 12/01/17 08:46 Dose: 5 mg [facility], [facility] Admin: 12/01/17 08:46 Dose: 81 mg Atenolol (Tenormin (Beta Silvana)) 100 mg PO DAILY [facility] Last Admin: 12/01/17 08:46 Dose: 100 mg Atorvastatin Calcium (Lipitor) 20 mg PO QHS [facility] Last Admin: 11/30/17 22:56 Dose: 20 mg Bisacodyl (Dulcolax) 5 mg PO DAILY PRN PRN PRN Reason: Constipation Last Admin: 11/30/17 15:36 Dose: 5 mg Bupropion HCl (Wellbutrin Xl) 300 mg PO DAILY [facility] Last Admin: 12/01/17 08:46 Dose: 300 mg Dextrose (D50w Syringe) 0 gm IV X1 PRN; Protocol PRN Reason: Hypoglycemia Famotidine (Pepcid) 20 mg PO DINNER [facility] Last Admin: 11/30/17 17:25 Dose: 20 mg Furosemide (Lasix) 20 mg PO BID@1000,1800 [facility] Gabapentin (Neurontin) 300 mg PO TIDCM [facility] Last Admin: 12/01/17 12:10 Dose: 300 mg Glucagon () 1 mg IM .X1 PRN PRN Reason: Hypoglycemia Heparin Sodium (Porcine) (Heparin Na) 5,000 unit SC BID [facility] Last Admin: 12/01/17 10:34 Dose: 5,000 u Insulin Aspart (Novolog Flexpen (Bkc)) 0 units SC ACHS [facility] PRN Reason: Protocol Last Admin: 12/01/17 12:08 Dose: Not Given Insulin Aspart (Novolog Flexpen (Bkc)) 12 units SC TIDCM [facility] Last Admin: 12/01/17 12:10 Dose: 12 units Insulin Detemir (Levemir (Bkc)) 50 units SC QHS [facility] Last Admin: 11/30/17 22:57 Dose: 50 units Magnesium Hydroxide (Milk Of Magnesia) 30 ml PO DAILY PRN PRN Reason: Constipation Last Admin: 11/30/17 08:22 Dose: 30 ml Nutritional Formula (Lactose Free) (Glucerna Shake) 120 ml PO TIDCM [facility] Last Admin: 12/01/17 12:09 Dose: Not Given Ondansetron HCl (Zofran) 4 mg IV Q8H PRN PRN PRN Reason: NAUSEA Psyllium Hydrophilic Mucilloid (Metamucil) 1 packet PO DAILY PRN PRN PRN Reason: CONSTIPATION Sodium Chloride () 5 - 30 ml IV UD PRN PRN Reason: SALINE FLUSH Last Admin: 12/01/17 10:35 Dose: 10 ml Medical Necessity - Tobacco Use Smoking Status: Never smoker Assessment/Plan 46 y/o male with PMHx of chronic diastolic heart failure, hypertension, type 2 DM complicated by neuropathy, retinopathy, and nephropathy, recently admitted with acute on chronic diastolic heart failure and hypertensive emergency as well as nephrotic range proteinuria. He has been re-admitted with shortness of breath, weight gain, and bilateral leg swelling. 1. Acute respiratory failure secondary to acute on chronic diastolic CHF/pulmonary hypertension, patient is on intermittent Bipap and 5L oxygen, will get a repeat CXR, lasix 20mg IV x 1, then continue on po lasix, will continue to wean off for spo2>94%, incentive spirometer 2. Acute exacerbation of chronic diastolic heart failure secondary to noncompliance and non-continuation of his Lasix, received a couple of doses of IV lasix which was stopped because of worsening renal function, received lasix 40mg IV last night, will resume on lasix 20mg po bid, strict fluid restriction, strict I & Os. 2. Type II DM complicated by nephropathy, neuropathy, peripheral neuropathy, BS is fairly uncontrolled,continue on Levemir, premeal novolog at 10units TID, and accucheks with ISS 3. ILDA on CKD stage III, Cr is worse, received a couple of doses of lasix, nephrology following, will continue on lasix 20mg po bid, follow-up with BMP. 4. 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 Obesity, diet and exercise is recommended 6. CAD status post [place], aspirin, statin, beta-silvana, will continue to monitor on telemetry 7. DVT prophylaxis with heparin subcu Code Visit Inpatient E&M: 83077 Subs Hosp L2
[2017-12-01] MEDS: Famotidine 20 MG Tablet PO (16:48)
[2017-12-01 16:56] LABS: Bedside Glucose 116 mg/dL (70-110)
[2017-12-01] MEDS: Furosemide 20 MG Tablet PO (17:19)
[2017-12-01] MEDS: Atorvastatin Calcium 20 MG Tablet PO (21:35)
[2017-12-01 22:30] LABS: Bedside Glucose 188 mg/dL (70-110)
--- NOTE | 2017-12-01 22:30 | CPS ---
decreased liter flow to 4
--- NOTE | 2017-12-01 23:41 | EKG12_ITS ---
Test Reason : RHYTHM CHANGE Blood Pressure : / mmHG Vent. Rate : 083 BPM Atrial Rate : 083 BPM P-R Int : 164 ms QRS Dur : 098 ms QT Int : 378 ms P-R-T Axes : 022 052 049 degrees QTc Int : 444 ms Sinus rhythm with occasional Premature ventricular complexes Nonspecific T wave abnormality Abnormal ECG When compared with ECG of 28-NOV-2017 08:58, Premature ventricular complexes are now Present Confirmed by IBRAHIMA NORTON, MITCHELL ([id number]), society editor TOBY WATSON ([id number]) on 12/05/2017 3:38:32 PM Referred By: DESTINI Confirmed By:MITCHELL ALEXANDRA MD
[2017-12-02] VITALS (14 sets, daily range): BP systolic 130–162; BP diastolic 73–92; PULSE 77–94; RESP 12–18; TEMP 36.3–37; O2SAT 93–97
[2017-12-02 05:58] LABS: BUN 80 mg/dL (7-18); BUN/Creat Ratio 22.1 RATIO (10-20); Calcium,Total 8.6 mg/dL (8.5-10.1); Chloride 103 mmol/L (98-107); Creatinine, Serum 3.62 mg/dL (0.70-1.30); EST Glomerular Filtration Rate 19 mL/min (>60); Est Glom Filt Rate - Afr Amer 23 mL/min (>60); Estimated Creatinine Clearance 24.14 ml/min; Glucose 57 mg/dL (74-106); Phosphorus 5.6 mg/dL (2.5-4.9); Potassium 4.4 mmol/L (3.5-5.1); Sodium Level 139 mmol/L (136-145)
--- NOTE | 2017-12-02 06:21 | NURSING ---
TOOLROOM CLERK notified RN that pt was sweaty. RN entered room to find pt diaphoretic and drowsy. Pt denies shortness of breath. Sugar checked and was 64. Pt given orange juice, tobias crackers, and peanut butter. Blood glucose rechecked and was 75. Pt given milk. Pt encouraged to continue snacking.
[2017-12-02] MEDS: Ipratropium/Albuterol Sulfate 3 ML AMPUL.NEB INHALATION ×2 (06:34→18:53)
[2017-12-02 07:00] LABS: Bedside Glucose 75 mg/dL (70-110)
[2017-12-02 07:00] LABS: Bedside Glucose 64 mg/dL (70-110)
[2017-12-02 07:00] LABS: Bedside Glucose 103 mg/dL (70-110)
[2017-12-02] MEDS: Furosemide 20 MG Tablet PO (08:28)
[2017-12-02] MEDS: Aspirin 81 MG TAB.CHEW PO (08:28)
[2017-12-02] MEDS: Atenolol 100 MG Tablet PO (08:28)
[2017-12-02] MEDS: buPROPion (XL) 300 MG TABLET.XL PO (08:28)
[2017-12-02] MEDS: Gabapentin 300 MG Capsule PO ×3 (08:28→16:34)
[2017-12-02] MEDS: amLODIPine 5 MG Tablet PO (08:28)
--- NOTE | 2017-12-02 08:30 | CON.PCM_ITS ---
Problem List (1) Acute respiratory failure with hypoxia Status: Acute (2) Diastolic congestive heart failure Status: Acute Qualifiers: Heart failure chronicity: acute on chronic Qualified Code(s): I50.33 - Acute on chronic diastolic (congestive) heart failure (3) Noncompliance Status: Chronic (4) Diabetic neuropathy Status: Chronic (5) Diabetic nephropathy Status: Chronic (6) Diabetic retinopathy Status: Chronic (7) HTN (hypertension) Status: Chronic Qualifiers: Hypertension type: essential hypertension Qualified Code(s): I10 - Essential (primary) hypertension (8) HLD (hyperlipidemia) Status: Chronic Qualifiers: Hyperlipidemia type: unspecified Qualified Code(s): E78.5 - Hyperlipidemia , unspecified (9) Blind left eye Status: Chronic (10) Diabetes mellitus type II, uncontrolled Status: Chronic Qualifiers: Diabetes mellitus rn long term care insulin use: with correction use Diabetes mellitus complication status: with unspecified complications Qualified Code(s) : E11.8 - Type 2 diabetes mellitus with unspecified complications; E11.65 - Type 2 diabetes mellitus with hyperglycemia; Z79.4 - custodial (current) use of insulin (11) Anxiety and depression Status: Chronic (12) GERD (gastroesophageal reflux disease) Status: Chronic Qualifiers: Esophagitis presence: esophagitis presence not specified Qualified Code(s) : K21.9 - Gastro-esophageal reflux disease without esophagitis (13) Hypertensive emergency Status: Acute (14) CKD (chronic kidney disease) stage 3, GFR 30-59 ml/min Status: Chronic Reason for Consult Date of Consultation: 12/02/17 Reason for Consultation: acute hypoxic respiratory failure History of Present Illness: The patient is a 46 year old M with past medical history as below, recently discharged from the ICU on 11/21/17 for acute diastolic CHF, hypertensive emergency, ILDA, and hypokalemia, admitted again on 11/28 with complaints of progressive shortness of breath, cough and edema. He denies any fever or chills. The patient was seen last admission by icu staff nurse Dr. Montiel and was to follow up in a few weeks. He was not discharged on diuretics. Patient did present to his primary care physician's office secondary to the shortness of breath and lower extremity edema, Lasix was restarted at that time with no significant improvement, so presented to the ED. initial vital signs BP 141/75, pulse 81, RR 17, 97.1?F, and 86% on room air. Initially placed on 2 L of oxygen supplementation, needs have been from 2-5 L. Of note, patient had weight gain of 28 pounds since he left the hospital on the . Initial blood work showed no leukocytosis, hemoglobin was 11.2. BUN was 50 and creatinine 2.70. Creatinine on discharge 11/21 was 2.88. Glucose was 354 and BNP 389. Chest x-ray showed findings consistent with congestive heart failure, increased right infrahilar markings. Bilateral venous Dopplers were negative for DVT. Patient was seen in consultation by Dr. Montiel, Lasix was briefly held secondary to worsening creatinine, but now continued at 20 mg twice daily. EKG is showing sinus rhythm with occasional PVCs, nonspecific T-wave abnormality. Repeat chest x-ray was obtained on 11/30 and showed bibasilar airspace consolidations and/or atelectasis, cardiomegaly and mild pulmonary congestion. Patient became more dyspneic and started on BiPAP 12/01. Patient was given 40 mg IV dose of Lasix ?1. In the last 24 hours, patient has needed BiPAP infrequently. Again, chest x-ray was repeated on 12/01 and showed worsening pulmonary edema. An ABG on 5 L of oxygen was obtained and showed a pH of 7.42, PCO2 42.4, PO2 of 71, and bicarb of 27.4. Cumulative fluid balance is -1890, patient is actually up 9 pounds since admission. The patient has now been weaned to 1 L of oxygen supplementation. He has been receiving every 4 hours DuoNeb aerosols. Has not needed PRN albuterol. Patient does have a history of MRSA in his wound in May 2017. Echocardiogram 11/20/17 showed moderate concentric LVH, estimated EF of 65%, a trivial right to left intra-atrial shunt, RVSP was not estimated. There was a small anterior pericardial effusion, possible epicardial fat on the RV, no significant change in LV function since 06/25/2011. Patient denies any smoking history. He has had no occupational or environmental exposures. He did have a polysomnogram in the past here at [facility], however was noncompliant with PAP therapy. I do not see this testing on file. He admits he has been noncompliant with his diet at home, has uncontrolled diabetes with complications and congestive heart failure. He denies any previous home oxygen use, he does not use any inhalers. He has never had any pulmonary function testing. He does complain of a nonproductive cough, especially with deep breaths. He denies any wheezing, hemoptysis, dyspnea at rest. Endorses dyspnea on exertion. Past Medical History Past Medical History (Chronic Problems): Chronic Problems Noncompliance (Chronic) Diabetic neuropathy (Chronic) Diabetic nephropathy (Chronic) Diabetic retinopathy (Chronic) HTN (hypertension) (Chronic) HLD (hyperlipidemia) (Chronic) Blind left eye (Chronic) Diabetes mellitus type II, uncontrolled (Chronic) Obesity (BMI 30.0-34.9) (Chronic) Anxiety and depression (Chronic) GERD (gastroesophageal reflux disease) (Chronic) Chewing tobacco nicotine dependence (Chronic) CKD (chronic kidney disease) stage 3, GFR 30-59 ml/min (Chronic) Leg edema, right (Chronic) History of acute myocardial infarction (Chronic) Allergies No Known Allergies Allergy (Verified 11/28/17 08:44) Home Medications: Ambulatory Orders Medication Instructions Recorded Gabapentin [Neurontin] 300 mg PO TIDCM 07/15/13 Insulin Glargine [Lantus SoloStar 60 units SC QHS 07/15/13 Pen] Amlodipine [Norvasc] 5 mg PO DAILY 05/06/17 Bupropion HCl [Wellbutrin Xl] 300 mg PO DAILY 05/06/17 Aspirin 81 mg PO DAILY 11/19/17 Atorvastatin Calcium [Lipitor] 20 mg PO DAILY 11/19/17 Atenolol [Tenormin (Beta Silvana)] 100 mg PO DAILY 11/28/17 Furosemide [Lasix] 20 mg PO DAILY 11/28/17 Hydrochlorothiazide [Hctz] 25 mg PO DAILY 11/28/17 Insulin Aspart [Novolog Flexpen] 15 units SC TIDCM 11/28/17 Lisinopril [Zestril] 40 mg PO DAILY 11/28/17 Potassium Chloride 10 meq PO BID 11/28/17 Ranitidine HCl [Zantac] 300 mg PO DINNER 11/28/17 Surgical History: cholecystectomy, - - Cholecystectomy, left retinal tear repair attempts, right eye laser surgery. Psychiatric History: Anxiety, Depression Lives: Alone Smoking Status: Never smoker Tobacco Use: Non-smoker Alcohol: Rare Drugs: None - *Family History Maternal History Items: Heart Disease Paternal History Items: Cancer - Father w/ Colon CA. Sibling History Items: Diabetes - sister, brother who passed, no kidney disease Review of Systems Constitutional: Reports: Weight Change, Fatigue. Denies: Anorexia, Chills, Fever, Night Sweats, Malaise, Weakness Eyes: Reports: - - Blind left eye, poor vision in the right at baseline HEENT: Denies: Difficulty Swallowing, Dysphasia, Head Aches, Nasal Congestion, Sinus Congestion, Sinus Drainage, Sore Throat Cardiovascular: Reports: Edema, Orthopnea. Denies: Chest Pain, Chest Tightness , Light Headedness, Palpitations, Paroxysmal Noc. Dyspnea, Syncope Respiratory: Reports: Cough - Nonproductive, Shortness of breath upon exertion. Denies: Hemoptysis, Shortness of breath at rest, Sputum production, Wheezing Gastrointestinal: Reports: - - Bloating. Denies: Abdominal Pain, Constipation, Diarrhea, Dyspepsia, Hematemesis, Hematochezia, Nausea, Melena, Vomiting Genitourinary: Reports: Frequency, Nocturia. Denies: Dysuria, Hematuria, Retention Musculoskeletal: Reports: Back Pain - Chronic, Leg Pain - Peripheral neuropathy. Denies: Neck Pain Skin: Denies: Rash, Wounds Neurological: Reports: Numbness, Tingling. Denies: Balance problems, Change in Speech, Confusion, Difficulty swallowing, Focal weakness, Tremor, Seizures Psychiatric: Reports: Anxiety, Depression Endocrine: Reports: Change in Body Habitus, Polydipsia. Denies: Polyuria Hematologic/ Lymphatic: Reports: Anemia. Denies: Adenopathy, Easy Bruising, Easy Bleeding, Hx of blood clot Patient Problems: Active and Suspected Problems Acute respiratory failure with hypoxia (Acute) Subjective: The patient was seen and examined. He is resting in bed with eyes closed, is alert and oriented. Reports he overall feels better and wants to go home. His edema has improved. Still dyspneic on exertion but better, has been weaned to 1 L of oxygen supplementation and was briefly on BiPAP but not currently requiring. Objective: Clinical Impression(s) from Imaging Studies Chest X-Ray 11/28/17 09:00 IMPRESSION: Findings in keeping with CHF. Increased right infrahilar markings. Follow-up is recommended. Electronically Signed: Tristan France MD at 9:37 EDT Tel [phone], Service support , Chest X-Ray 11/30/17 09:28 IMPRESSION: 1. Bilateral basilar airspace consolidations and/or atelectasis, similar to previous study. 2. Cardiomegaly and mild pulmonary congestion. Electronically Signed: Neli Mariscal MD at 12:07 EDT , Service support , Chest X-Ray 12/01/17 03:30 IMPRESSION: Worsening pulmonary edema. Electronically Signed: Owen Del Valle MD at 4:44 EDT Tel , Service support , - Physical Exam General: Alert, Oriented x3, Cooperative, No apparent distress, Well developed, Well nourished, - - No conversational dyspnea HEENT: Atraumatic, Normocephalic Oral: Moist Mucosa, No Gingival or Mucosal Lesions/ Ulcerations Neck: Supple, No Nodes, Trachea Midline Lungs: - - Diminished t/o, no appreciable rhonchi, wheezing, or rales. No significant dullness to percussion Cardiovascular: Regular rate, Regular Rhythm, Normal S1, Normal S2, No murmurs, No rub noted, No Gallop Abdomen: Bowel Sounds Present, Soft, Non Tender, Distended Extremities: No clubbing, No cyanosis, Capillary Refill Less than 3 Seconds, No Calf Tenderness, Edema Skin: No rashes, No breakdown Musculoskeletal: No Tenderness to Palpation of Joints or Extremities Lymphatic: No Cervical, Supraclavicular, or Inguinal Adenopathy Neurological: Cranial nerves II-XII grossly intact, Neuro grossly intact, Motor Exam 5/5 strength throughout Psych/Mental Status: Alert and oriented to time, place, person, mood and affect Vital Signs Temp Pulse Resp BP Pulse Ox 97.9 F 94 18 162/78 H 96 12/02/17 05:25 12/02/17 07:08 12/02/17 06:34 12/02/17 05:25 12/02/17 06:34 Oxygen Flow Rate (L/min) 4 Oxygen Delivery Method Nasal Cannula Weight: 250 lb 3 oz Body Mass Index (BMI) 36.3 Intake and Output for Last 24 Hours 11/30/17 12/01/17 12/02/17 23:59 23:59 23:59 Intake Total 640 / 640 940 / 940 530 / 530 Output Total 2150 / 2150 2090 / 2090 425 / 425 Balance -1510 / -1510 -1150 / -1150 105 / 105 Laboratory Tests Past 24 Hrs 12/01/17 12/02/17 11:52 05:10 Specimen Type ART Sample Site L Brachial pH 7.42 Bicarbonate Actual 27.4 H POC Total CO2 29 Base Excess 3 H O2 Saturation 94 L ABG pCO2 42.4 ABG pO2 71 L Joe Test NA O2 Delivery Device Nasal Can Liter Flow 5.0 Blood Gas Notified Whom HOSP Blood Gas Notified Time 1150 Sodium 139 Potassium 4.4 Chloride 103 Carbon Dioxide 27.0 BUN 80 H Creatinine 3.62 H Estim Creat Clear Calc 24.14 Est GFR (MDRD) Af Amer 23 L Est GFR (MDRD) Non-Af 19 L BUN/Creatinine Ratio 22.1 H Glucose 57 L Calcium 8.6 Phosphorus 5.6 H Albumin 2.0 L POC Glucose 12/02/17 12/02/17 12/02/17 06:52 05:51 05:32 POC Glucose 103 75 64 L 12/01/17 12/01/17 12/01/17 21:33 16:46 11:49 POC Glucose 188 H 116 H 106 Assessment/Plan Active and Suspected Problems Acute respiratory failure with hypoxia (Acute) RECOMMENDATIONS 1. Wean oxygen supplementation to keep saturations greater than 89% 2. Encourage incentive spirometer 3. Increase activity as tolerated, mobilize 4. Continue scheduled DuoNeb aerosols, PRN albuterol 5. Continue diuresis, daily weights, strict I&O 6. Education on CHF/diabetes 7. Utilize BiPAP nightly and with naps, also as rescue 7. Outpatient polysomnogram 8. Walking oximetry prior to discharge IMPRESSIONS 1. Acute hypoxic respiratory failure secondary to diastolic CHF exacerbation Patient has been weaned to 1-2 L of oxygen supplementation. He is no longer requiring BiPAP. No shortness of breath at rest. Chest x-ray showing airspace densities in the perihilar regions and lung bases, probable worsening pulmonary edema. Likely not infectious but more related to his CHF. No fevers or leukocytosis. No culture data to review. Patient not producing any sputum, can obtain culture if cough becomes productive. Patient does have history of MRSA in a wound in 05/2017, will check PCR. No indications for steroids or antibiotics at this time. His edema has actually improved, however weight is up 9# from this admission and up 37# since he was discharged on 11/21. Diuresis is complicated by worsening renal function. Dr. Montiel is following. Patient will require a walking oximetry prior to discharge. He should be utilizing BiPAP to assist with fluid accumulation. 2. Suspected LUANNE Patient reports past polysomnogram a long time ago at [facility]. These records are not available at this time. STOP score +. Patient never wore BiPAP therapy secondary to noncompliance. Encourage patient to use BiPAP with naps and nightly, can use as rescue if needed. Patient would likely benefit from repeat polysomnogram at discharge. Given his comorbidities , he would likely benefit from PAP therapy and possibly help avoid future admissions to the hospital. 3. ILDA/chronic kidney disease stage III/obesity/CAD/type 2 diabetes Complicates care, management, recovery, and prognosis. Nephrology is following , creatinine has bumped up likely secondary to diuretic use. Thank you for the opportunity to participate in this patient's care, please do not hesitate contact us with any further questions or concerns. This note was generated with [employer] dictation software. It may contain incorrect words, spelling, and punctuation that were not noted in checking the note before signing.
--- NOTE | 2017-12-02 09:03 | CASEMGMT ---
Per patient, he has no needs re: diabetes management or CHF education which hasn't already been addressed. Patient has a follow-up appnt scheduled with LETTY Adams, and will have a PCP follow-up arranged prior to discharge. Patient has adequate diabetes testing supplies. RN CM will remain available to assist should any additional post-acute needs arise prior to discharge. Blane Sanchez BSN, RN-BC, CCM
--- NOTE | 2017-12-02 11:00 | PN.RENAL_ITS ---
Patient Problems: Active and Suspected Problems Acute respiratory failure with hypoxia (Acute) Subjective: Breathing and tightness in abdomen improved. Creatinine slightly improved today after wilhelm catheter placed yesterday. Urine output improved with lasix. - Physical Exam General: Alert, Oriented x3, Cooperative Oral: Moist Mucosa Neck: Supple Lungs: Diminished, Rales - left base Cardiovascular: Regular rate Abdomen: Bowel Sounds Present, Soft, Distended, Obese Extremities: Edema - to abdomen Skin: No rashes Neurological: Cranial nerves II-XII grossly intact Psych/Mental Status: Alert and oriented to time, place, person, mood and affect Vital Signs Temp Pulse Resp BP Pulse Ox 97.9 F 94 18 162/78 H 96 12/02/17 05:25 12/02/17 07:08 12/02/17 06:34 12/02/17 05:25 12/02/17 06:34 Oxygen Flow Rate (L/min) 2 Oxygen Delivery Method Nasal Cannula Weight: 113.483 kg Body Mass Index (BMI) 36.3 Intake and Output for Last 24 Hours 11/30/17 12/01/17 12/02/17 23:59 23:59 23:59 Intake Total 640 / 640 940 / 940 530 / 530 Output Total 2150 / 2150 2090 / 2090 425 / 425 Balance -1510 / -1510 -1150 / -1150 105 / 105 Laboratory Tests Past 24 Hrs 12/01/17 12/02/17 11:52 05:10 Specimen Type ART Sample Site L Brachial pH 7.42 Bicarbonate Actual 27.4 H POC Total CO2 29 Base Excess 3 H O2 Saturation 94 L ABG pCO2 42.4 ABG pO2 71 L Joe Test NA O2 Delivery Device Nasal Can Liter Flow 5.0 Blood Gas Notified Whom [facility] Blood Gas Notified Time 1150 Sodium 139 Potassium 4.4 Chloride 103 Carbon Dioxide 27.0 BUN 80 H Creatinine 3.62 H Estim Creat Clear Calc 24.14 Est GFR (MDRD) Af Amer 23 L Est GFR (MDRD) Non-Af 19 L BUN/Creatinine Ratio 22.1 H Glucose 57 L Calcium 8.6 Phosphorus 5.6 H Albumin 2.0 L POC Glucose 12/02/17 12/02/17 12/02/17 06:52 05:51 05:32 POC Glucose 103 75 64 L 12/01/17 12/01/17 12/01/17 21:33 16:46 11:49 POC Glucose 188 H 116 H 106 Medical Necessity - Tobacco Use Smoking Status: Never smoker Tobacco Use: Non-smoker Assessment/Plan Active and Suspected Problems Acute respiratory failure with hypoxia (Acute) 1. Acute on CKD stage III suspect due to urinary retention with underlying diabetic nephropathy with nephrotic proteinuria. Continue to hold ACEI. 2. Fluid retention, CHF. Continue with lasix, increased to 40mg bid. Lasix iv x1 today. Continue with wilhelm to CD. 3. History of noncompliance with medications, diet, and diabetes. 4. DM type II on insulin therapy. Nephrotic proteinuria from diabetes 5. Hypertension increase lasix 6. sleep apnea, morbid obesity.
[2017-12-02] MEDS: Furosemide 40 MG/4 ML Vial IV (11:44)
[2017-12-02 11:56] LABS: Bedside Glucose 91 mg/dL (70-110)
[2017-12-02 13:23] LABS: M R Staph aureus DNA By PCR POSITIVE (Negative); Probe Check PASS
[2017-12-02] MEDS: Famotidine 20 MG Tablet PO (16:35)
[2017-12-02 16:41] LABS: Bedside Glucose 129 mg/dL (70-110)
[2017-12-02] MEDS: Furosemide 40 MG Tablet PO (17:12)
--- NOTE | 2017-12-02 17:49 | PCM.PN.HOSP ---
Patient Problems: Active and Suspected Problems Acute respiratory failure with hypoxia (Acute) Subjective: Patient gets short of breath on walking. He still has bilateral lower extremity edema. Found to have heart failure and nephrotic syndrome during hospital workup. Operations Accountant and installations inspector note reviewed. Vitals/I&O's: Vital Signs Temp Pulse Resp BP Pulse Ox 98.0 F 79 16 153/78 H 94 12/02/17 17:13 12/02/17 17:13 12/02/17 17:13 12/02/17 17:13 12/02/17 17:13 Oxygen Flow Rate (L/min) 1 Oxygen Delivery Method Nasal Cannula Weight: 250 lb 2.995 oz Body Mass Index (BMI) 36.3 Intake and Output for Last 24 Hours 11/30/17 12/01/17 12/02/17 23:59 23:59 23:59 Intake Total 640 / 640 940 / 940 890 / 890 Output Total 2150 / 2150 2090 / 2090 1025 / 1025 Balance -1510 / -1510 -1150 / -1150 -135 / -135 General: Alert, Oriented x3, Cooperative HEENT: Atraumatic, PERRLA, EOMI, Normocephalic Neck: Supple, No JVD, Negative Carotid Bruits Lungs: No rhonchi, No wheeze, No rales, Diminished, Short of Breath Cardiovascular: Regular rate, Regular Rhythm, Normal S1, Normal S2, No murmurs Abdomen: Bowel Sounds Present, Soft, Non Tender, - - Has Sky catheter. Clear urine Extremities: Capillary Refill Less than 3 Seconds, Edema Skin: No rashes, No breakdown Musculoskeletal: No Tenderness to Palpation of Joints or Extremities Neurological: Cranial nerves II-XII grossly intact Psych/Mental Status: Normal Affect, Appropriate Laboratory Results 12/01/17 21:33: POC Glucose 188 H 12/02/17 05:10: Sodium 139, Potassium 4.4, Chloride 103, Carbon Dioxide 27.0, BUN 80 H, Creatinine 3.62 H, Estim Creat Clear Calc 24.14, Est GFR (MDRD) Af Amer 23 L, Est GFR (MDRD) Non-Af 19 L, BUN/Creatinine Ratio 22.1 H, Glucose 57 L, Calcium 8.6, Phosphorus 5.6 H, Albumin 2.0 L 12/02/17 05:32: POC Glucose 64 L 12/02/17 05:51: POC Glucose 75 12/02/17 06:52: POC Glucose 103 12/02/17 11:40: MRSA (PCR) POSITIVE H 12/02/17 11:41: POC Glucose 91 12/02/17 16:31: POC Glucose 129 H Current Medications Acetaminophen (Tylenol) 650 mg PO Q6H PRN PRN PRN Reason: Mild Pain (scale 0-3)/T>100.7 Last Admin: 11/28/17 23:12 Dose: 650 mg Albuterol Sulfate (Ventolin Aerosols) 2.5 mg INHALATION Q2H PRN PRN PRN Reason: SOB &/OR WHEEZING Albuterol/Ipratropium (Duoneb) 3 ml INHALATION Q4HWA.RT [facility] Last Admin: 12/02/17 14:38 Dose: Not Given Amlodipine Besylate (Norvasc) 5 mg PO DAILY [facility] Last Admin: 12/02/17 08:28 Dose: 5 mg Aspirin (Aspirin, Baby) 81 mg PO DAILYCM [facility] Last Admin: 12/02/17 08:28 Dose: 81 mg Atenolol (Tenormin (Beta Silvana)) 100 mg PO DAILY [facility] Last Admin: 12/02/17 08:28 Dose: 100 mg Atorvastatin Calcium (Lipitor) 20 mg PO QHS [facility] Last Admin: 12/01/17 21:35 Dose: 20 mg Bisacodyl (Dulcolax) 5 mg PO DAILY PRN PRN PRN Reason: Constipation Last Admin: 11/30/17 15:36 Dose: 5 mg Bupropion HCl (Wellbutrin Xl) 300 mg PO DAILY [facility] Last Admin: 12/02/17 08:28 Dose: 300 mg Dextrose (D50w Syringe) 0 gm IV X1 PRN; Protocol PRN Reason: Hypoglycemia Famotidine (Pepcid) 20 mg PO DINNER [facility] Last Admin: 12/02/17 16:35 Dose: 20 mg Furosemide (Lasix) 40 mg PO BID@1000,1800 [facility] Last Admin: 12/02/17 17:12 Dose: 40 mg Gabapentin (Neurontin) 300 mg PO TIDCM [facility] Last Admin: 12/02/17 16:34 Dose: 300 mg Glucagon () 1 mg IM .X1 PRN PRN Reason: Hypoglycemia Heparin Sodium (Porcine) (Heparin Na) 5,000 unit SC BID [facility] Last Admin: 12/02/17 08:28 Dose: 5,000 u Insulin Aspart (Novolog Flexpen (Bkc)) 0 units SC ACHS [facility] PRN Reason: Protocol Last Admin: 12/02/17 16:33 Dose: Not Given Insulin Aspart (Novolog Flexpen (Bkc)) 12 units SC TIDCM [facility] Last Admin: 12/02/17 17:12 Dose: 12 units Insulin Detemir (Levemir (Bkc)) 50 units SC QHS [facility] Last Admin: 12/01/17 21:35 Dose: 50 units Magnesium Hydroxide (Milk Of Magnesia) 30 ml PO DAILY PRN PRN Reason: Constipation Last Admin: 11/30/17 08:22 Dose: 30 ml Ondansetron HCl (Zofran) 4 mg IV Q8H PRN PRN PRN Reason: NAUSEA Psyllium Hydrophilic Mucilloid (Metamucil) 1 packet PO DAILY PRN PRN PRN Reason: CONSTIPATION Sodium Chloride () 5 - 30 ml IV UD PRN PRN Reason: SALINE FLUSH Last Admin: 12/01/17 10:35 Dose: 10 ml Medical Necessity - Tobacco Use Smoking Status: Never smoker Tobacco Use: Non-smoker Assessment/Plan Active and Suspected Problems Acute respiratory failure with hypoxia (Acute) 46 y/o male with PMHx of chronic diastolic heart failure, hypertension, type 2 DM complicated by neuropathy, retinopathy, and nephropathy, recently admitted with acute on chronic diastolic heart failure and hypertensive emergency as well as nephrotic range proteinuria. He has been re-admitted with shortness of breath, weight gain, and bilateral leg swelling. 1. Acute respiratory failure secondary to acute on chronic diastolic CHF/pulmonary hypertension, patient is on intermittent Bipap and oxygen, Lasix 40 mg twice daily, continue to wean off for spo2>94%, incentive spirometer. Oxygen requirement has decreased to 1 L/min. 2. Acute exacerbation of chronic diastolic heart failure secondary to noncompliance and non-continuation of his Lasix: On Lasix 40 mg twice daily. Optimize the volume status with the strict monitoring of I and O's. 2. Type II DM complicated by nephropathy, neuropathy, peripheral neuropathy, BS is fairly uncontrolled,continue on Levemir, premeal novolog at 10units TID, and accucheks with ISS. On NovoLog 10 units at bedtime daily. 3. ILDA on CKD stage III; most probably from CHF/intravascular fluid shift: 4. 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 Obesity, diet and exercise is recommended 6. CAD status post [place], aspirin, statin, beta-silvana, will continue to monitor on telemetry 7. DVT prophylaxis with heparin subcu Laboratory Results 12/01/17 21:33: POC Glucose 188 H 12/02/17 05:10: Sodium 139, Potassium 4.4, Chloride 103, Carbon Dioxide 27.0, BUN 80 H, Creatinine 3.62 H, Estim Creat Clear Calc 24.14, Est GFR (MDRD) Af Amer 23 L, Est GFR (MDRD) Non-Af 19 L, BUN/Creatinine Ratio 22.1 H, Glucose 57 L, Calcium 8.6, Phosphorus 5.6 H, Albumin 2.0 L 12/02/17 05:32: POC Glucose 64 L 12/02/17 05:51: POC Glucose 75 12/02/17 06:52: POC Glucose 103 12/02/17 11:40: MRSA (PCR) POSITIVE H 12/02/17 11:41: POC Glucose 91 12/02/17 16:31: POC Glucose 129 H Clinical Impression(s) from Imaging Studies Chest X-Ray 11/28/17 09:00 IMPRESSION: Findings in keeping with CHF. Increased right infrahilar markings. Follow-up is recommended. Electronically Signed: Tristan France MD at 9:37 EDT Tel [phone], Service support , Chest X-Ray 11/30/17 09:28 IMPRESSION: 1. Bilateral basilar airspace consolidations and/or atelectasis, similar to previous study. 2. Cardiomegaly and mild pulmonary congestion. Electronically Signed: Neli Mariscal MD at 12:07 EDT , Service support , Chest X-Ray 12/01/17 03:30 IMPRESSION: Worsening pulmonary edema. Electronically Signed: Owen Del Valle MD at 4:44 EDT Tel , Service support , Code Visit Inpatient E&M: 24319 Subs Hosp L3
--- NOTE | 2017-12-02 18:00 | PN_ITS ---
Patient Problems: Active and Suspected Problems Acute respiratory failure with hypoxia (Acute) Subjective: Patient gets short of breath on walking. He still has bilateral lower extremity edema. Found to have heart failure and nephrotic syndrome during hospital workup. Neurology Stroke Physician and body former note reviewed. Vitals/I&O's: Vital Signs Temp Pulse Resp BP Pulse Ox 98.0 F 79 16 153/78 H 94 12/02/17 17:13 12/02/17 17:13 12/02/17 17:13 12/02/17 17:13 12/02/17 17:13 Oxygen Flow Rate (L/min) 1 Oxygen Delivery Method Nasal Cannula Weight: 250 lb 2.995 oz Body Mass Index (BMI) 36.3 Intake and Output for Last 24 Hours 11/30/17 12/01/17 12/02/17 23:59 23:59 23:59 Intake Total 640 / 640 940 / 940 890 / 890 Output Total 2150 / 2150 2090 / 2090 1025 / 1025 Balance -1510 / -1510 -1150 / -1150 -135 / -135 General: Alert, Oriented x3, Cooperative HEENT: Atraumatic, PERRLA, EOMI, Normocephalic Neck: Supple, No JVD, Negative Carotid Bruits Lungs: No rhonchi, No wheeze, No rales, Diminished, Short of Breath Cardiovascular: Regular rate, Regular Rhythm, Normal S1, Normal S2, No murmurs Abdomen: Bowel Sounds Present, Soft, Non Tender, - - Has Sky catheter. Clear urine Extremities: Capillary Refill Less than 3 Seconds, Edema Skin: No rashes, No breakdown Musculoskeletal: No Tenderness to Palpation of Joints or Extremities Neurological: Cranial nerves II-XII grossly intact Psych/Mental Status: Normal Affect, Appropriate Laboratory Results 12/01/17 21:33: POC Glucose 188 H 12/02/17 05:10: Sodium 139, Potassium 4.4, Chloride 103, Carbon Dioxide 27.0, BUN 80 H, Creatinine 3.62 H, Estim Creat Clear Calc 24.14, Est GFR (MDRD) Af Amer 23 L, Est GFR (MDRD) Non-Af 19 L, BUN/Creatinine Ratio 22.1 H, Glucose 57 L , Calcium 8.6, Phosphorus 5.6 H, Albumin 2.0 L 12/02/17 05:32: POC Glucose 64 L 12/02/17 05:51: POC Glucose 75 12/02/17 06:52: POC Glucose 103 12/02/17 11:40: MRSA (PCR) POSITIVE H 12/02/17 11:41: POC Glucose 91 12/02/17 16:31: POC Glucose 129 H Current Medications Acetaminophen (Tylenol) 650 mg PO Q6H PRN PRN PRN Reason: Mild Pain (scale 0-3)/T>100.7 Last Admin: 11/28/17 23:12 Dose: 650 mg Albuterol Sulfate (Ventolin Aerosols) 2.5 mg INHALATION Q2H PRN PRN PRN Reason: SOB &/OR WHEEZING Albuterol/Ipratropium (Duoneb) 3 ml INHALATION Q4HWA.RT [facility] Last Admin: 12/02/17 14:38 Dose: Not Given Amlodipine Besylate (Norvasc) 5 mg PO DAILY [facility] Last Admin: 12/02/17 08:28 Dose: 5 mg Aspirin (Aspirin, Baby) 81 mg PO DAILYCM [facility] Last Admin: 12/02/17 08:28 Dose: 81 mg Atenolol (Tenormin (Beta Silvana)) 100 mg PO DAILY [facility] Last Admin: 12/02/17 08:28 Dose: 100 mg Atorvastatin Calcium (Lipitor) 20 mg PO QHS [facility] Last Admin: 12/01/17 21:35 Dose: 20 mg Bisacodyl (Dulcolax) 5 mg PO DAILY PRN PRN PRN Reason: Constipation Last Admin: 11/30/17 15:36 Dose: 5 mg Bupropion HCl (Wellbutrin Xl) 300 mg PO DAILY [facility] Last Admin: 12/02/17 08:28 Dose: 300 mg Dextrose (D50w Syringe) 0 gm IV X1 PRN; Protocol PRN Reason: Hypoglycemia Famotidine (Pepcid) 20 mg PO DINNER [facility] Last Admin: 12/02/17 16:35 Dose: 20 mg Furosemide (Lasix) 40 mg PO BID@1000,1800 [facility] Last Admin: 12/02/17 17:12 Dose: 40 mg Gabapentin (Neurontin) 300 mg PO TIDCM [facility] Last Admin: 12/02/17 16:34 Dose: 300 mg Glucagon () 1 mg IM .X1 PRN PRN Reason: Hypoglycemia Heparin Sodium (Porcine) (Heparin Na) 5,000 unit SC BID [facility] Last Admin: 12/02/17 08:28 Dose: 5,000 u Insulin Aspart (Novolog Flexpen (Bkc)) 0 units SC ACHS [facility] PRN Reason: Protocol Last Admin: 12/02/17 16:33 Dose: Not Given Insulin Aspart (Novolog Flexpen (Bkc)) 12 units SC TIDCM [facility] Last Admin: 12/02/17 17:12 Dose: 12 units Insulin Detemir (Levemir (Bkc)) 50 units SC QHS [facility] Last Admin: 12/01/17 21:35 Dose: 50 units Magnesium Hydroxide (Milk Of Magnesia) 30 ml PO DAILY PRN PRN Reason: Constipation Last Admin: 11/30/17 08:22 Dose: 30 ml Ondansetron HCl (Zofran) 4 mg IV Q8H PRN PRN PRN Reason: NAUSEA Psyllium Hydrophilic Mucilloid (Metamucil) 1 packet PO DAILY PRN PRN PRN Reason: CONSTIPATION Sodium Chloride () 5 - 30 ml IV UD PRN PRN Reason: SALINE FLUSH Last Admin: 12/01/17 10:35 Dose: 10 ml Medical Necessity - Tobacco Use Smoking Status: Never smoker Tobacco Use: Non-smoker Assessment/Plan Active and Suspected Problems Acute respiratory failure with hypoxia (Acute) 46 y/o male with PMHx of chronic diastolic heart failure, hypertension, type 2 DM complicated by neuropathy, retinopathy, and nephropathy, recently admitted with acute on chronic diastolic heart failure and hypertensive emergency as well as nephrotic range proteinuria. He has been re-admitted with shortness of breath, weight gain, and bilateral leg swelling. 1. Acute respiratory failure secondary to acute on chronic diastolic CHF/ pulmonary hypertension, patient is on intermittent Bipap and oxygen, Lasix 40 mg twice daily, continue to wean off for spo2>94%, incentive spirometer. Oxygen requirement has decreased to 1 L/min. 2. Acute exacerbation of chronic diastolic heart failure secondary to noncompliance and non-continuation of his Lasix: On Lasix 40 mg twice daily. Optimize the volume status with the strict monitoring of I and O's. 2. Type II DM complicated by nephropathy, neuropathy, peripheral neuropathy, BS is fairly uncontrolled,continue on Levemir, premeal novolog at 10units TID, and accucheks with ISS. On NovoLog 10 units at bedtime daily. 3. ILDA on CKD stage III; most probably from CHF/intravascular fluid shift: 4. 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 Obesity, diet and exercise is recommended 6. CAD status post SD, aspirin, statin, beta-silvana, will continue to monitor on telemetry 7. DVT prophylaxis with heparin subcu Laboratory Results 12/01/17 21:33: POC Glucose 188 H 12/02/17 05:10: Sodium 139, Potassium 4.4, Chloride 103, Carbon Dioxide 27.0, BUN 80 H, Creatinine 3.62 H, Estim Creat Clear Calc 24.14, Est GFR (MDRD) Af Amer 23 L, Est GFR (MDRD) Non-Af 19 L, BUN/Creatinine Ratio 22.1 H, Glucose 57 L , Calcium 8.6, Phosphorus 5.6 H, Albumin 2.0 L 12/02/17 05:32: POC Glucose 64 L 12/02/17 05:51: POC Glucose 75 12/02/17 06:52: POC Glucose 103 12/02/17 11:40: MRSA (PCR) POSITIVE H 12/02/17 11:41: POC Glucose 91 12/02/17 16:31: POC Glucose 129 H Clinical Impression(s) from Imaging Studies Chest X-Ray 11/28/17 09:00 IMPRESSION: Findings in keeping with CHF. Increased right infrahilar markings. Follow-up is recommended. Electronically Signed: Tristan France MD at 9:37 EDT Tel [phone], Service support , Chest X-Ray 11/30/17 09:28 IMPRESSION: 1. Bilateral basilar airspace consolidations and/or atelectasis, similar to previous study. 2. Cardiomegaly and mild pulmonary congestion. Electronically Signed: Neli Mariscal MD at 12:07 EDT , Service support , Chest X-Ray 12/01/17 03:30 IMPRESSION: Worsening pulmonary edema. Electronically Signed: Owen Del Valle MD at 4:44 EDT Tel , Service support , Code Visit Inpatient E&M: [id number] Subs Hosp L3
[2017-12-02] MEDS: Acetaminophen 325 MG Tablet 650 MG PO (20:04)
[2017-12-02] MEDS: Atorvastatin Calcium 20 MG Tablet PO (21:30)
[2017-12-02 21:40] LABS: Bedside Glucose 175 mg/dL (70-110)
[2017-12-03] VITALS (19 sets, daily range): BP systolic 135–160; BP diastolic 75–99; PULSE 76–89; RESP 12–20; TEMP 36.2–36.9; O2SAT 92–96
[2017-12-03 05:49] LABS: Albumin, Serum 1.8 g/dL (3.2-5.0); BUN 81 mg/dL (7-18); BUN/Creat Ratio 24.1 RATIO (10-20); Calcium,Total 8.2 mg/dL (8.5-10.1); Chloride 105 mmol/L (98-107); Creatinine, Serum 3.36 mg/dL (0.70-1.30); EST Glomerular Filtration Rate 21 mL/min (>60); Est Glom Filt Rate - Afr Amer 25 mL/min (>60); Estimated Creatinine Clearance 26.01 ml/min; Glucose 101 mg/dL (74-106); Magnesium 2.5 mg/dL (1.6-2.6); Phosphorus 5.2 mg/dL (2.5-4.9); Potassium 4.6 mmol/L (3.5-5.1); Sodium Level 141 mmol/L (136-145)
[2017-12-03 06:56] LABS: Bedside Glucose 65 mg/dL (70-110)
[2017-12-03] MEDS: Ipratropium/Albuterol Sulfate 3 ML AMPUL.NEB INHALATION ×3 (07:02→19:06)
[2017-12-03 07:11] LABS: Bedside Glucose 91 mg/dL (70-110)
--- NOTE | 2017-12-03 08:03 | PCM.PN.HOSP ---
Patient Problems: Active and Suspected Problems Acute respiratory failure with hypoxia (Acute) Vitals/I&O's: Vital Signs Temp Pulse Resp BP Pulse Ox 97.8 F 77 14 135/75 H 96 12/03/17 05:10 12/03/17 05:10 12/03/17 05:10 12/03/17 05:10 12/03/17 05:10 Oxygen Flow Rate (L/min) 1 Oxygen Delivery Method Bi-pap Weight: 248 lb 0.321 oz Body Mass Index (BMI) 36.3 Intake and Output for Last 24 Hours 12/01/17 12/02/17 12/03/17 23:59 23:59 23:59 Intake Total 940 / 940 1250 / 1250 720 / 720 Output Total 2090 / 2090 1875 / 1875 1325 / 1325 Balance -1150 / -1150 -625 / -625 -605 / -605 Laboratory Results 12/02/17 11:40: MRSA (PCR) POSITIVE H 12/02/17 11:41: POC Glucose 91 12/02/17 16:31: POC Glucose 129 H 12/02/17 21:28: POC Glucose 175 H 12/03/17 05:17: Sodium 141, Potassium 4.6, Chloride 105, Carbon Dioxide 29.0, BUN 81 H, Creatinine 3.36 H, Estim Creat Clear Calc 26.01, Est GFR (MDRD) Af Amer 25 L, Est GFR (MDRD) Non-Af 21 L, BUN/Creatinine Ratio 24.1 H, Glucose 101, Calcium 8.2 L, Phosphorus 5.2 H, Magnesium 2.5, Albumin 1.8 L 12/03/17 06:46: POC Glucose 65 L 12/03/17 07:01: POC Glucose 91 Current Medications Acetaminophen (Tylenol) 650 mg PO Q6H PRN PRN PRN Reason: Mild Pain (scale 0-3)/T>100.7 Last Admin: 12/02/17 20:04 Dose: 650 mg Albuterol Sulfate (Ventolin Aerosols) 2.5 mg INHALATION Q2H PRN PRN PRN Reason: SOB &/OR WHEEZING Albuterol/Ipratropium (Duoneb) 3 ml INHALATION Q4HWA.RT [facility] Last Admin: 12/03/17 07:02 Dose: 3 ml Amlodipine Besylate (Norvasc) 5 mg PO DAILY [facility] Last Admin: 12/02/17 08:28 Dose: 5 mg Aspirin (Aspirin, Baby) 81 mg PO DAILYCM [facility] Last Admin: 12/02/17 08:28 Dose: 81 mg Atenolol (Tenormin (Beta Silvana)) 100 mg PO DAILY [facility] Last Admin: 12/02/17 08:28 Dose: 100 mg Atorvastatin Calcium (Lipitor) 20 mg PO QHS [facility] Last Admin: 12/02/17 21:30 Dose: 20 mg Bisacodyl (Dulcolax) 5 mg PO DAILY PRN PRN PRN Reason: Constipation Last Admin: 11/30/17 15:36 Dose: 5 mg Bupropion HCl (Wellbutrin Xl) 300 mg PO DAILY [facility] Last Admin: 12/02/17 08:28 Dose: 300 mg Dextrose (D50w Syringe) 0 gm IV X1 PRN; Protocol PRN Reason: Hypoglycemia Famotidine (Pepcid) 20 mg PO DINNER [facility] Last Admin: 12/02/17 16:35 Dose: 20 mg Furosemide (Lasix) 40 mg PO BID@1000,1800 [facility] Last Admin: 12/02/17 17:12 Dose: 40 mg Gabapentin (Neurontin) 300 mg PO TIDCM [facility] Last Admin: 12/02/17 16:34 Dose: 300 mg Glucagon () 1 mg IM .X1 PRN PRN Reason: Hypoglycemia Heparin Sodium (Porcine) (Heparin Na) 5,000 unit SC BID [facility] Last Admin: 12/02/17 21:30 Dose: 5,000 u Insulin Aspart (Novolog Flexpen (Bkc)) 0 units SC ACHS [facility] PRN Reason: Protocol Last Admin: 12/02/17 21:31 Dose: 1 u Insulin Aspart (Novolog Flexpen (Bkc)) 12 units SC TIDCM [facility] Last Admin: 12/02/17 17:12 Dose: 12 units Insulin Detemir (Levemir (Bkc)) 45 units SC QHS [facility] Last Admin: 12/02/17 21:30 Dose: 45 u Magnesium Hydroxide (Milk Of Magnesia) 30 ml PO DAILY PRN PRN Reason: Constipation Last Admin: 11/30/17 08:22 Dose: 30 ml Ondansetron HCl (Zofran) 4 mg IV Q8H PRN PRN PRN Reason: NAUSEA Psyllium Hydrophilic Mucilloid (Metamucil) 1 packet PO DAILY PRN PRN PRN Reason: CONSTIPATION Sodium Chloride () 5 - 30 ml IV UD PRN PRN Reason: SALINE FLUSH Last Admin: 12/01/17 10:35 Dose: 10 ml Medical Necessity - Tobacco Use Smoking Status: Never smoker Tobacco Use: Non-smoker Assessment/Plan Active and Suspected Problems Acute respiratory failure with hypoxia (Acute)
[2017-12-03] MEDS: Aspirin 81 MG TAB.CHEW PO (08:11)
[2017-12-03] MEDS: Gabapentin 300 MG Capsule PO ×3 (08:11→17:03)
[2017-12-03] MEDS: Furosemide 40 MG Tablet PO ×2 (08:12→17:04)
[2017-12-03] MEDS: amLODIPine 5 MG Tablet PO (08:12)
[2017-12-03] MEDS: buPROPion (XL) 300 MG TABLET.XL PO (08:13)
--- NOTE | 2017-12-03 08:22 | PCM.PROGNOTE ---
Patient Problems: Active and Suspected Problems Acute respiratory failure with hypoxia (Acute) Diastolic congestive heart failure (Acute) ILDA (acute kidney injury) (Acute) Subjective: Patient was seen and examined. He denies any complaints, has an occasional nonproductive cough. Still has some lower extremity edema. Tolerated BiPAP overnight per nursing staff. Asking if he can go home. Remains afebrile and hemodynamically stable. Objective: Recent lab work and culture data reviewed. MRSA PCR positive. Cumulative fluid balance is -3225 mL. Weight improved today. Last chest x-ray on 12/01/17 showed worsening pulmonary edema. Repeat CXR 12/03 with some improvement. - Physical Exam General: Alert, Oriented x3, Cooperative, No apparent distress HEENT: Atraumatic, Normocephalic Oral: Moist Mucosa, No Gingival or Mucosal Lesions/ Ulcerations Neck: Supple, No Nodes, Trachea Midline Lungs: No rhonchi, No wheeze, No rales, Diminished Cardiovascular: Regular rate, Regular Rhythm, Normal S1, Normal S2, No murmurs Abdomen: Bowel Sounds Present, Soft, Non Tender, Distended, Obese Extremities: No clubbing, No cyanosis, Edema - pitting LEs, DAYAN hose in place Skin: No rashes Musculoskeletal: No Tenderness to Palpation of Joints or Extremities Neurological: Neuro grossly intact Psych/Mental Status: Alert and oriented to time, place, person, mood and affect Vital Signs Temp Pulse Resp BP Pulse Ox 97.8 F 77 14 135/75 H 96 12/03/17 05:10 12/03/17 05:10 12/03/17 05:10 12/03/17 05:10 12/03/17 05:10 Oxygen Flow Rate (L/min) 1 Oxygen Delivery Method Bi-pap Weight: 248 lb 0.321 oz Body Mass Index (BMI) 36.3 Intake and Output for Last 24 Hours 12/01/17 12/02/17 12/03/17 23:59 23:59 23:59 Intake Total 940 / 940 1250 / 1250 720 / 720 Output Total 2090 / 2090 1875 / 1875 1325 / 1325 Balance -1150 / -1150 -625 / -625 -605 / -605 Laboratory Tests Past 24 Hrs 12/02/17 12/03/17 11:40 05:17 Sodium 141 Potassium 4.6 Chloride 105 Carbon Dioxide 29.0 BUN 81 H Creatinine 3.36 H Estim Creat Clear Calc 26.01 Est GFR (MDRD) Af Amer 25 L Est GFR (MDRD) Non-Af 21 L BUN/Creatinine Ratio 24.1 H Glucose 101 Calcium 8.2 L Phosphorus 5.2 H Magnesium 2.5 Albumin 1.8 L MRSA (PCR) POSITIVE H POC Glucose 12/03/17 12/03/17 12/02/17 07:01 06:46 21:28 POC Glucose 91 65 L 175 H 12/02/17 12/02/17 16:31 11:41 POC Glucose 129 H 91 Medical Necessity - Tobacco Use Smoking Status: Never smoker Tobacco Use: Non-smoker Assessment/Plan Active and Suspected Problems Acute respiratory failure with hypoxia (Acute) Diastolic congestive heart failure (Acute) ILDA (acute kidney injury) (Acute) RECOMMENDATIONS 1. Wean oxygen supplementation to keep saturations greater than 89% 2. Encourage incentive spirometer 3. Increase activity as tolerated, mobilize 4. Continue scheduled DuoNeb aerosols, PRN albuterol 5. Continue diuresis, daily weights, strict I&O 6. 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 Utilize BiPAP nightly and with naps, also as rescue 7. Outpatient polysomnogram 8. Walking oximetry prior to discharge IMPRESSIONS 1. Acute hypoxic respiratory failure secondary to diastolic CHF exacerbation Patient has been weaned to 1L of oxygen supplementation. Chest x-ray showing airspace densities in the perihilar regions and lung bases, probable worsening pulmonary edema. Likely not infectious but more related to his CHF. No fevers or leukocytosis. MRSA PCR +. Patient does have history of MRSA in a wound in 05/2017. Patient not producing any sputum, can obtain culture if cough becomes productive. Weight is up from this admission and up 30-40# since he was discharged on 11/21. Diuresis is complicated by worsening renal function. Dr. Montiel is following. Patient will require a walking oximetry prior to discharge. He should be utilizing BiPAP to assist with fluid accumulation. 2. Suspected LUANNE Patient reports past polysomnogram a long time ago at [facility]. These records are not available at this time. STOP score +. Patient never previously wore BiPAP therapy secondary to noncompliance. Patient does have daytime sleepiness and hypersomnolence, also snores. Encourage patient to use BiPAP with naps and nightly, can use as rescue if needed. Patient would likely benefit from repeat polysomnogram at discharge. 3. ILDA/chronic kidney disease stage III/obesity/CAD/type 2 diabetes Complicates care, management, recovery, and prognosis. Nephrology is following, creatinine remains elevated. Holding TOM-I. Dr. Montiel adding Flomax for possible urinary retention as cause of nephropathy. May require d/c with wilhelm catheter and urology follow-up. Thank you for the opportunity to participate in this patient's care, please do not hesitate contact us with any further questions or concerns. This note was generated with [employer] dictation software. It may contain incorrect words, spelling, and punctuation that were not noted in checking the note before signing.
[2017-12-03] MEDS: Atenolol 100 MG Tablet PO (08:26)
--- NOTE | 2017-12-03 08:30 | PN_ITS ---
Patient Problems: Active and Suspected Problems Acute respiratory failure with hypoxia (Acute) Diastolic congestive heart failure (Acute) ILDA (acute kidney injury) (Acute) Subjective: Patient was seen and examined. He denies any complaints, has an occasional nonproductive cough. Still has some lower extremity edema. Tolerated BiPAP overnight per nursing staff. Asking if he can go home. Remains afebrile and hemodynamically stable. Objective: Recent lab work and culture data reviewed. MRSA PCR positive. Cumulative fluid balance is -3225 mL. Weight improved today. Last chest x-ray on 12/01/17 showed worsening pulmonary edema. Repeat CXR 12/03 with some improvement. - Physical Exam General: Alert, Oriented x3, Cooperative, No apparent distress HEENT: Atraumatic, Normocephalic Oral: Moist Mucosa, No Gingival or Mucosal Lesions/ Ulcerations Neck: Supple, No Nodes, Trachea Midline Lungs: No rhonchi, No wheeze, No rales, Diminished Cardiovascular: Regular rate, Regular Rhythm, Normal S1, Normal S2, No murmurs Abdomen: Bowel Sounds Present, Soft, Non Tender, Distended, Obese Extremities: No clubbing, No cyanosis, Edema - pitting LEs, DAYAN hose in place Skin: No rashes Musculoskeletal: No Tenderness to Palpation of Joints or Extremities Neurological: Neuro grossly intact Psych/Mental Status: Alert and oriented to time, place, person, mood and affect Vital Signs Temp Pulse Resp BP Pulse Ox 97.8 F 77 14 135/75 H 96 12/03/17 05:10 12/03/17 05:10 12/03/17 05:10 12/03/17 05:10 12/03/17 05:10 Oxygen Flow Rate (L/min) 1 Oxygen Delivery Method Bi-pap Weight: 248 lb 0.321 oz Body Mass Index (BMI) 36.3 Intake and Output for Last 24 Hours 12/01/17 12/02/17 12/03/17 23:59 23:59 23:59 Intake Total 940 / 940 1250 / 1250 720 / 720 Output Total 2090 / 2090 1875 / 1875 1325 / 1325 Balance -1150 / -1150 -625 / -625 -605 / -605 Laboratory Tests Past 24 Hrs 12/02/17 12/03/17 11:40 05:17 Sodium 141 Potassium 4.6 Chloride 105 Carbon Dioxide 29.0 BUN 81 H Creatinine 3.36 H Estim Creat Clear Calc 26.01 Est GFR (MDRD) Af Amer 25 L Est GFR (MDRD) Non-Af 21 L BUN/Creatinine Ratio 24.1 H Glucose 101 Calcium 8.2 L Phosphorus 5.2 H Magnesium 2.5 Albumin 1.8 L MRSA (PCR) POSITIVE H POC Glucose 12/03/17 12/03/17 12/02/17 07:01 06:46 21:28 POC Glucose 91 65 L 175 H 12/02/17 12/02/17 16:31 11:41 POC Glucose 129 H 91 Medical Necessity - Tobacco Use Smoking Status: Never smoker Tobacco Use: Non-smoker Assessment/Plan Active and Suspected Problems Acute respiratory failure with hypoxia (Acute) Diastolic congestive heart failure (Acute) ILDA (acute kidney injury) (Acute) RECOMMENDATIONS 1. Wean oxygen supplementation to keep saturations greater than 89% 2. Encourage incentive spirometer 3. Increase activity as tolerated, mobilize 4. Continue scheduled DuoNeb aerosols, PRN albuterol 5. Continue diuresis, daily weights, strict I&O 6. 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 Utilize BiPAP nightly and with naps, also as rescue 7. Outpatient polysomnogram 8. Walking oximetry prior to discharge IMPRESSIONS 1. Acute hypoxic respiratory failure secondary to diastolic CHF exacerbation Patient has been weaned to 1L of oxygen supplementation. Chest x-ray showing airspace densities in the perihilar regions and lung bases, probable worsening pulmonary edema. Likely not infectious but more related to his CHF. No fevers or leukocytosis. MRSA PCR +. Patient does have history of MRSA in a wound in 05/2017. Patient not producing any sputum, can obtain culture if cough becomes productive. Weight is up from this admission and up 30-40# since he was discharged on 11/21. Diuresis is complicated by worsening renal function. Dr. Montiel is following. Patient will require a walking oximetry prior to discharge. He should be utilizing BiPAP to assist with fluid accumulation. 2. Suspected LUANNE Patient reports past polysomnogram a long time ago at [facility]. These records are not available at this time. STOP score +. Patient never previously wore BiPAP therapy secondary to noncompliance. Patient does have daytime sleepiness and hypersomnolence, also snores. Encourage patient to use BiPAP with naps and nightly, can use as rescue if needed. Patient would likely benefit from repeat polysomnogram at discharge. 3. ILDA/chronic kidney disease stage III/obesity/CAD/type 2 diabetes Complicates care, management, recovery, and prognosis. Nephrology is following , creatinine remains elevated. Holding TOM-I. Dr. Montiel adding Flomax for possible urinary retention as cause of nephropathy. May require d/c with wilhelm catheter and urology follow-up. Thank you for the opportunity to participate in this patient's care, please do not hesitate contact us with any further questions or concerns. This note was generated with [email or web address] dictation software. It may contain incorrect words, spelling, and punctuation that were not noted in checking the note before signing.
--- NOTE | 2017-12-03 09:28 | PCM.PN.REN ---
Patient Problems: Active and Suspected Problems Acute respiratory failure with hypoxia (Acute) Subjective: edema and shortness of breath improving. Good UOP with wilhelm in place. Will add flomax. - Physical Exam General: Alert, Oriented x3, Cooperative Neck: Supple Lungs: Diminished Cardiovascular: Regular rate Abdomen: Bowel Sounds Present, Distended, Obese, - - tight Extremities: Edema - 2+ pitting Neurological: Cranial nerves II-XII grossly intact Psych/Mental Status: Normal Affect, Alert and oriented to time, place, person, mood and affect Vital Signs Temp Pulse Resp BP Pulse Ox 97.1 F L 82 18 145/78 H 93 12/03/17 08:30 12/03/17 08:31 12/03/17 08:31 12/03/17 08:30 12/03/17 08:31 Oxygen Flow Rate (L/min) 1 Oxygen Delivery Method Nasal Cannula Weight: 112.5 kg Body Mass Index (BMI) 36.3 Intake and Output for Last 24 Hours 12/01/17 12/02/17 12/03/17 23:59 23:59 23:59 Intake Total 940 / 940 1250 / 1250 720 / 720 Output Total 2090 / 2090 1875 / 1875 1325 / 1325 Balance -1150 / -1150 -625 / -625 -605 / -605 Laboratory Tests Past 24 Hrs 12/02/17 12/03/17 11:40 05:17 Sodium 141 Potassium 4.6 Chloride 105 Carbon Dioxide 29.0 BUN 81 H Creatinine 3.36 H Estim Creat Clear Calc 26.01 Est GFR (MDRD) Af Amer 25 L Est GFR (MDRD) Non-Af 21 L BUN/Creatinine Ratio 24.1 H Glucose 101 Calcium 8.2 L Phosphorus 5.2 H Magnesium 2.5 Albumin 1.8 L MRSA (PCR) POSITIVE H POC Glucose 12/03/17 12/03/17 12/02/17 07:01 06:46 21:28 POC Glucose 91 65 L 175 H 12/02/17 12/02/17 16:31 11:41 POC Glucose 129 H 91 Medical Necessity - Tobacco Use Smoking Status: Never smoker Tobacco Use: Non-smoker Assessment/Plan Active and Suspected Problems Acute respiratory failure with hypoxia (Acute) 1. Acute on CKD stage III suspect due to urinary retention with underlying diabetic nephropathy with nephrotic proteinuria. Continue to hold ACEI. Creatinine improving but still not back to baseline. May need to be discharged with wilhelm and f/u with urology. CXR pa/lat 2. Fluid retention, CHF. Continue with lasix, increased to 40mg bid. Lasix iv x1 today. Continue with wilhelm to CD. Add flomax. 3. History of noncompliance 4. DM type II on insulin therapy. Nephrotic proteinuria from diabetes 5. Hypertension stable 6. sleep apnea, morbid obesity. 7. Hyperkalemia resolved Follow low K diet
--- NOTE | 2017-12-03 09:34 | RAD_ITS ---
STUDY: X-RAY CHEST REASON FOR EXAM: Male, 46 years old. Shortness of breath TECHNIQUE: Frontal and lateral views of the chest were obtained. COMPARISON: December 01, 2017 FINDINGS: The lungs are underaerated. There are minimal increased markings in both lung bases. There is blunting of both costophrenic angles. There is mild enlargement of the cardiac silhouette. The mediastinum and hilar regions are unremarkable. The central vessels are increased. Normal visualized aortic arch and descending thoracic aorta. There are diffuse degenerative changes of the visualized spine. The visualized ribs, clavicles, and shoulders are unremarkable. Cholecystectomy clips are present. RAD/Chest PA and Lateral IMPRESSION: There is mild enlargement of the cardiac silhouette with diffuse edema and moderate bilateral effusions. Vascularity is slightly improved compared to the prior study. There is minimal bibasilar atelectasis. Electronically Signed: Allyssa Degroot MD at 10:34 EDT Tel Direct: [phone], Service support ,
[2017-12-03 11:40] LABS: Bedside Glucose 192 mg/dL (70-110)
--- NOTE | 2017-12-03 12:51 | PCM.PN.HOSP ---
Patient Problems: Active and Suspected Problems Acute respiratory failure with hypoxia (Acute) Diastolic congestive heart failure (Acute) ILDA (acute kidney injury) (Acute) Subjective: Patient is on diuretic with Sky catheter. Negative fluid balance of about 850 mL today Vitals/I&O's: Vital Signs Temp Pulse Resp BP Pulse Ox 98.5 F 79 16 136/85 H 93 12/03/17 12:49 12/03/17 12:49 12/03/17 12:49 12/03/17 12:49 12/03/17 12:49 Oxygen Flow Rate (L/min) 1 Oxygen Delivery Method Nasal Cannula Weight: 248 lb 0.321 oz Body Mass Index (BMI) 36.3 Intake and Output for Last 24 Hours 12/01/17 12/02/17 12/03/17 23:59 23:59 23:59 Intake Total 940 / 940 1250 / 1250 1120 / 1120 Output Total 2089 / 2089 1875 / 1875 1974 / 1974 Balance -1150 / -1150 -625 / -625 -855 / -855 General: Alert, Oriented x3, Cooperative HEENT: Atraumatic, PERRLA, EOMI, Normocephalic Neck: Supple, No JVD, Negative Carotid Bruits Lungs: No rhonchi, No wheeze, No rales, Diminished Cardiovascular: Regular rate, Regular Rhythm, Normal S1, Normal S2, No murmurs Abdomen: Bowel Sounds Present, Soft, Non Tender, Non-Distended Extremities: Capillary Refill Less than 3 Seconds, Edema Skin: No rashes, No breakdown Musculoskeletal: No Tenderness to Palpation of Joints or Extremities Neurological: Cranial nerves II-XII grossly intact Psych/Mental Status: Normal Affect, Appropriate Laboratory Results 12/02/17 11:40: MRSA (PCR) POSITIVE H 12/02/17 16:31: POC Glucose 129 H 12/02/17 21:28: POC Glucose 175 H 12/03/17 05:17: Sodium 141, Potassium 4.6, Chloride 105, Carbon Dioxide 29.0, BUN 81 H, Creatinine 3.36 H, Estim Creat Clear Calc 26.01, Est GFR (MDRD) Af Amer 25 L, Est GFR (MDRD) Non-Af 21 L, BUN/Creatinine Ratio 24.1 H, Glucose 101, Calcium 8.2 L, Phosphorus 5.2 H, Magnesium 2.5, Albumin 1.8 L 12/03/17 06:46: POC Glucose 65 L 12/03/17 07:01: POC Glucose 91 12/03/17 11:21: POC Glucose 192 H Current Medications Acetaminophen (Tylenol) 650 mg PO Q6H PRN PRN PRN Reason: Mild Pain (scale 0-3)/T>100.7 Last Admin: 12/02/17 20:04 Dose: 650 mg Albuterol Sulfate (Ventolin Aerosols) 2.5 mg INHALATION Q2H PRN PRN PRN Reason: SOB &/OR WHEEZING Albuterol/Ipratropium (Duoneb) 3 ml INHALATION Q4HWA.RT [facility] Last Admin: 12/03/17 11:11 Dose: Not Given Amlodipine Besylate (Norvasc) 5 mg PO DAILY [facility] Last Admin: 12/03/17 08:12 Dose: 5 mg Aspirin (Aspirin, Baby) 81 mg PO DAILYCM [facility] Last Admin: 12/03/17 08:11 Dose: 81 mg Atenolol (Tenormin (Beta Silvana)) 100 mg PO DAILY [facility] Last Admin: 12/03/17 08:26 Dose: 100 mg Atorvastatin Calcium (Lipitor) 20 mg PO QHS [facility] Last Admin: 12/02/17 21:30 Dose: 20 mg Bisacodyl (Dulcolax) 5 mg PO DAILY PRN PRN PRN Reason: Constipation Last Admin: 11/30/17 15:36 Dose: 5 mg Bupropion HCl (Wellbutrin Xl) 300 mg PO DAILY [facility] Last Admin: 12/03/17 08:13 Dose: 300 mg Dextrose (D50w Syringe) 0 gm IV X1 PRN; Protocol PRN Reason: Hypoglycemia Famotidine (Pepcid) 20 mg PO DINNER [facility] Last Admin: 12/02/17 16:35 Dose: 20 mg Furosemide (Lasix) 40 mg PO BID@1000,1800 [facility] Last Admin: 12/03/17 08:12 Dose: 40 mg Furosemide (Lasix) 40 mg IV X1 ONE Stop: 12/03/17 14:01 Gabapentin (Neurontin) 300 mg PO TIDCM [facility] Last Admin: 12/03/17 11:27 Dose: 300 mg Glucagon () 1 mg IM .X1 PRN PRN Reason: Hypoglycemia Heparin Sodium (Porcine) (Heparin Na) 5,000 unit SC BID [facility] Last Admin: 12/03/17 08:12 Dose: 5,000 u Insulin Aspart (Novolog Flexpen (Bk)) 0 units SC ACHS [facility] PRN Reason: Protocol Last Admin: 12/03/17 11:26 Dose: 1 u Insulin Aspart (Novolog Flexpen (Bkc)) 12 units SC TIDCM [facility] Last Admin: 12/03/17 11:28 Dose: 12 units Insulin Detemir (Levemir (Bk)) 45 units SC QHS [facility] Last Admin: 12/02/17 21:30 Dose: 45 u Magnesium Hydroxide (Milk Of Magnesia) 30 ml PO DAILY PRN PRN Reason: Constipation Last Admin: 11/30/17 08:22 Dose: 30 ml Ondansetron HCl (Zofran) 4 mg IV Q8H PRN PRN PRN Reason: NAUSEA Psyllium Hydrophilic Mucilloid (Metamucil) 1 packet PO DAILY PRN PRN PRN Reason: CONSTIPATION Sodium Chloride () 5 - 30 ml IV UD PRN PRN Reason: SALINE FLUSH Last Admin: 12/01/17 10:35 Dose: 10 ml Tamsulosin HCl (Flomax) 0.4 mg PO DAILY@1730 [facility] Medical Necessity - Tobacco Use Smoking Status: Never smoker Tobacco Use: Non-smoker Assessment/Plan Active and Suspected Problems Acute respiratory failure with hypoxia (Acute) Diastolic congestive heart failure (Acute) ILDA (acute kidney injury) (Acute) 46 y/o male with PMHx of chronic diastolic heart failure, hypertension, type 2 DM complicated by neuropathy, retinopathy, and nephropathy, recently admitted with acute on chronic diastolic heart failure and hypertensive emergency as well as nephrotic range proteinuria. He has been re-admitted with shortness of breath, weight gain, and bilateral leg swelling. 1. Acute respiratory failure secondary to acute on chronic diastolic CHF/pulmonary hypertension, patient is on intermittent Bipap and oxygen, Lasix 40 mg twice daily, continue to wean off for spo2>94%, incentive spirometer. Oxygen requirement has decreased to 1 L/min. 2. Acute exacerbation of chronic diastolic heart failure secondary to noncompliance and non-continuation of his Lasix: On Lasix 40 mg twice daily. Optimize the volume status with the strict monitoring of I and O's. 2. Type II DM complicated by nephropathy, neuropathy, peripheral neuropathy, BS is fairly uncontrolled,continue on Levemir, premeal novolog at 10units TID, and accucheks with ISS. On NovoLog 10 units at bedtime daily. 3. ILDA on CKD stage III; most probably from CHF/intravascular fluid shift: Creatinine is 3.35- 3.74; holding good on the diuretic. 4. 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 Obesity, diet and exercise is recommended 6. CAD status post [place], aspirin, statin, beta-silvana, will continue to monitor on telemetry 7. DVT prophylaxis with heparin subcu Laboratory Results 12/02/17 11:40: MRSA (PCR) POSITIVE H 12/02/17 16:31: POC Glucose 129 H 12/02/17 21:28: POC Glucose 175 H 12/03/17 05:17: Sodium 141, Potassium 4.6, Chloride 105, Carbon Dioxide 29.0, BUN 81 H, Creatinine 3.36 H, Estim Creat Clear Calc 26.01, Est GFR (MDRD) Af Amer 25 L, Est GFR (MDRD) Non-Af 21 L, BUN/Creatinine Ratio 24.1 H, Glucose 101, Calcium 8.2 L, Phosphorus 5.2 H, Magnesium 2.5, Albumin 1.8 L 12/03/17 06:46: POC Glucose 65 L 12/03/17 07:01: POC Glucose 91 12/03/17 11:21: POC Glucose 192 H Clinical Impression(s) from Imaging Studies Chest X-Ray 11/28/17 09:00 IMPRESSION: Findings in keeping with CHF. Increased right infrahilar markings. Follow-up is recommended. Electronically Signed: Tristan France MD at 9:37 EDT Tel [phone], Service support , Chest X-Ray 12/03/17 09:34 IMPRESSION: There is mild enlargement of the cardiac silhouette with diffuse edema and moderate bilateral effusions. Vascularity is slightly improved compared to the prior study. There is minimal bibasilar atelectasis. Electronically Signed: Allyssa Degroot MD at 10:34 EDT Tel Direct: [phone], Service support , Code Visit Inpatient E&M: 88629 Subs Hosp L3
--- NOTE | 2017-12-03 13:00 | PN_ITS ---
Patient Problems: Active and Suspected Problems Acute respiratory failure with hypoxia (Acute) Diastolic congestive heart failure (Acute) ILDA (acute kidney injury) (Acute) Subjective: Patient is on diuretic with Sky catheter. Negative fluid balance of about 850 mL today Vitals/I&O's: Vital Signs Temp Pulse Resp BP Pulse Ox 98.5 F 79 16 136/85 H 93 12/03/17 12:49 12/03/17 12:49 12/03/17 12:49 12/03/17 12:49 12/03/17 12:49 Oxygen Flow Rate (L/min) 1 Oxygen Delivery Method Nasal Cannula Weight: 248 lb 0.321 oz Body Mass Index (BMI) 36.3 Intake and Output for Last 24 Hours 12/01/17 12/02/17 12/03/17 23:59 23:59 23:59 Intake Total 940 / 940 1250 / 1250 1120 / 1120 Output Total 2089 / 2089 1875 / 1875 1974 / 1974 Balance -1150 / -1150 -625 / -625 -855 / -855 General: Alert, Oriented x3, Cooperative HEENT: Atraumatic, PERRLA, EOMI, Normocephalic Neck: Supple, No JVD, Negative Carotid Bruits Lungs: No rhonchi, No wheeze, No rales, Diminished Cardiovascular: Regular rate, Regular Rhythm, Normal S1, Normal S2, No murmurs Abdomen: Bowel Sounds Present, Soft, Non Tender, Non-Distended Extremities: Capillary Refill Less than 3 Seconds, Edema Skin: No rashes, No breakdown Musculoskeletal: No Tenderness to Palpation of Joints or Extremities Neurological: Cranial nerves II-XII grossly intact Psych/Mental Status: Normal Affect, Appropriate Laboratory Results 12/02/17 11:40: MRSA (PCR) POSITIVE H 12/02/17 16:31: POC Glucose 129 H 12/02/17 21:28: POC Glucose 175 H 12/03/17 05:17: Sodium 141, Potassium 4.6, Chloride 105, Carbon Dioxide 29.0, BUN 81 H, Creatinine 3.36 H, Estim Creat Clear Calc 26.01, Est GFR (MDRD) Af Amer 25 L, Est GFR (MDRD) Non-Af 21 L, BUN/Creatinine Ratio 24.1 H, Glucose 101 , Calcium 8.2 L, Phosphorus 5.2 H, Magnesium 2.5, Albumin 1.8 L 12/03/17 06:46: POC Glucose 65 L 12/03/17 07:01: POC Glucose 91 12/03/17 11:21: POC Glucose 192 H Current Medications Acetaminophen (Tylenol) 650 mg PO Q6H PRN PRN PRN Reason: Mild Pain (scale 0-3)/T>100.7 Last Admin: 12/02/17 20:04 Dose: 650 mg Albuterol Sulfate (Ventolin Aerosols) 2.5 mg INHALATION Q2H PRN PRN PRN Reason: SOB &/OR WHEEZING Albuterol/Ipratropium (Duoneb) 3 ml INHALATION Q4HWA.RT [facility] Last Admin: 12/03/17 11:11 Dose: Not Given Amlodipine Besylate (Norvasc) 5 mg PO DAILY [facility] Last Admin: 12/03/17 08:12 Dose: 5 mg Aspirin (Aspirin, Baby) 81 mg PO DAILYCM [facility] Last Admin: 12/03/17 08:11 Dose: 81 mg Atenolol (Tenormin (Beta Silvana)) 100 mg PO DAILY [facility] Last Admin: 12/03/17 08:26 Dose: 100 mg Atorvastatin Calcium (Lipitor) 20 mg PO QHS [facility] Last Admin: 12/02/17 21:30 Dose: 20 mg Bisacodyl (Dulcolax) 5 mg PO DAILY PRN PRN PRN Reason: Constipation Last Admin: 11/30/17 15:36 Dose: 5 mg Bupropion HCl (Wellbutrin Xl) 300 mg PO DAILY [facility] Last Admin: 12/03/17 08:13 Dose: 300 mg Dextrose (D50w Syringe) 0 gm IV X1 PRN; Protocol PRN Reason: Hypoglycemia Famotidine (Pepcid) 20 mg PO DINNER [facility] Last Admin: 12/02/17 16:35 Dose: 20 mg Furosemide (Lasix) 40 mg PO BID@1000,1800 [facility] Last Admin: 12/03/17 08:12 Dose: 40 mg Furosemide (Lasix) 40 mg IV X1 ONE Stop: 12/03/17 14:01 Gabapentin (Neurontin) 300 mg PO TIDCM [facility] Last Admin: 12/03/17 11:27 Dose: 300 mg Glucagon () 1 mg IM .X1 PRN PRN Reason: Hypoglycemia Heparin Sodium (Porcine) (Heparin Na) 5,000 unit SC BID [facility] Last Admin: 12/03/17 08:12 Dose: 5,000 u Insulin Aspart (Novolog Flexpen (Bk)) 0 units SC ACHS [facility] PRN Reason: Protocol Last Admin: 12/03/17 11:26 Dose: 1 u Insulin Aspart (Novolog Flexpen (Bkc)) 12 units SC TIDCM [facility] Last Admin: 12/03/17 11:28 Dose: 12 units Insulin Detemir (Levemir (Bk)) 45 units SC QHS [facility] Last Admin: 12/02/17 21:30 Dose: 45 u Magnesium Hydroxide (Milk Of Magnesia) 30 ml PO DAILY PRN PRN Reason: Constipation Last Admin: 11/30/17 08:22 Dose: 30 ml Ondansetron HCl (Zofran) 4 mg IV Q8H PRN PRN PRN Reason: NAUSEA Psyllium Hydrophilic Mucilloid (Metamucil) 1 packet PO DAILY PRN PRN PRN Reason: CONSTIPATION Sodium Chloride () 5 - 30 ml IV UD PRN PRN Reason: SALINE FLUSH Last Admin: 12/01/17 10:35 Dose: 10 ml Tamsulosin HCl (Flomax) 0.4 mg PO DAILY@1730 [facility] Medical Necessity - Tobacco Use Smoking Status: Never smoker Tobacco Use: Non-smoker Assessment/Plan Active and Suspected Problems Acute respiratory failure with hypoxia (Acute) Diastolic congestive heart failure (Acute) ILDA (acute kidney injury) (Acute) 46 y/o male with PMHx of chronic diastolic heart failure, hypertension, type 2 DM complicated by neuropathy, retinopathy, and nephropathy, recently admitted with acute on chronic diastolic heart failure and hypertensive emergency as well as nephrotic range proteinuria. He has been re-admitted with shortness of breath, weight gain, and bilateral leg swelling. 1. Acute respiratory failure secondary to acute on chronic diastolic CHF/ pulmonary hypertension, patient is on intermittent Bipap and oxygen, Lasix 40 mg twice daily, continue to wean off for spo2>94%, incentive spirometer. Oxygen requirement has decreased to 1 L/min. 2. Acute exacerbation of chronic diastolic heart failure secondary to noncompliance and non-continuation of his Lasix: On Lasix 40 mg twice daily. Optimize the volume status with the strict monitoring of I and O's. 2. Type II DM complicated by nephropathy, neuropathy, peripheral neuropathy, BS is fairly uncontrolled,continue on Levemir, premeal novolog at 10units TID, and accucheks with ISS. On NovoLog 10 units at bedtime daily. 3. ILDA on CKD stage III; most probably from CHF/intravascular fluid shift: Creatinine is 3.35- 3.74; holding good on the diuretic. 4. 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 Obesity, diet and exercise is recommended 6. CAD status post [place], aspirin, statin, beta-silvana, will continue to monitor on telemetry 7. DVT prophylaxis with heparin subcu Laboratory Results 12/02/17 11:40: MRSA (PCR) POSITIVE H 12/02/17 16:31: POC Glucose 129 H 12/02/17 21:28: POC Glucose 175 H 12/03/17 05:17: Sodium 141, Potassium 4.6, Chloride 105, Carbon Dioxide 29.0, BUN 81 H, Creatinine 3.36 H, Estim Creat Clear Calc 26.01, Est GFR (MDRD) Af Amer 25 L, Est GFR (MDRD) Non-Af 21 L, BUN/Creatinine Ratio 24.1 H, Glucose 101 , Calcium 8.2 L, Phosphorus 5.2 H, Magnesium 2.5, Albumin 1.8 L 12/03/17 06:46: POC Glucose 65 L 12/03/17 07:01: POC Glucose 91 12/03/17 11:21: POC Glucose 192 H Clinical Impression(s) from Imaging Studies Chest X-Ray 11/28/17 09:00 IMPRESSION: Findings in keeping with CHF. Increased right infrahilar markings. Follow-up is recommended. Electronically Signed: Tristan France MD at 9:37 EDT Tel [phone], Service support , Chest X-Ray 12/03/17 09:34 IMPRESSION: There is mild enlargement of the cardiac silhouette with diffuse edema and moderate bilateral effusions. Vascularity is slightly improved compared to the prior study. There is minimal bibasilar atelectasis. Electronically Signed: Allyssa Degroot MD at 10:34 EDT Tel Direct: [phone], Service support , Code Visit Inpatient E&M: [id number] Subs Hosp L3
[2017-12-03] MEDS: Furosemide 40 MG/4 ML Vial IV ×2 (13:09→22:20)
[2017-12-03] MEDS: 0.9% NaCl Peripheral Flush Adult/Peds IV ×2 (13:10→20:10)
[2017-12-03 16:26] LABS: Bedside Glucose 112 mg/dL (70-110)
[2017-12-03] MEDS: Famotidine 20 MG Tablet PO (17:03)
[2017-12-03] MEDS: Tamsulosin HCl 0.4 MG Capsule PO (17:06)
[2017-12-03] MEDS: Acetaminophen 325 MG Tablet 650 MG PO (20:10)
[2017-12-03] MEDS: Atorvastatin Calcium 20 MG Tablet PO (21:12)
[2017-12-03 21:25] LABS: Bedside Glucose 185 mg/dL (70-110)
--- NOTE | 2017-12-03 23:36 | CPS ---
Patient refused to wear Bipap therapy this evening. Patient was informed that it was in his best interest to wear said therapy. Patient still refused such treatment. Patient made aware that if he changes his mind then to have nursing staff to call respiratory staff.
[2017-12-04] VITALS (18 sets, daily range): BP systolic 146–155; BP diastolic 76–88; PULSE 70–86; RESP 12–20; TEMP 36.4–36.8; O2SAT 88–97
[2017-12-04] MEDS: Ipratropium/Albuterol Sulfate 3 ML AMPUL.NEB INHALATION ×5 (03:32→18:23)
[2017-12-04 06:31] LABS: Albumin, Serum 1.9 g/dL (3.2-5.0); BUN 77 mg/dL (7-18); BUN/Creat Ratio 24.1 RATIO (10-20); Calcium,Total 8.2 mg/dL (8.5-10.1); Chloride 107 mmol/L (98-107); Creatinine, Serum 3.19 mg/dL (0.70-1.30); EST Glomerular Filtration Rate 22 mL/min (>60); Est Glom Filt Rate - Afr Amer 27 mL/min (>60); Glucose 93 mg/dL (74-106); Magnesium 2.6 mg/dL (1.6-2.6); Phosphorus 4.6 mg/dL (2.5-4.9); Potassium 4.5 mmol/L (3.5-5.1); Sodium Level 142 mmol/L (136-145)
[2017-12-04 06:46] LABS: Bedside Glucose 77 mg/dL (70-110)
[2017-12-04] MEDS: Acetaminophen 325 MG Tablet 650 MG PO ×2 (06:47→22:08)
--- NOTE | 2017-12-04 08:48 | PCM.PN.REN ---
Patient Problems: Active and Suspected Problems Acute respiratory failure with hypoxia (Acute) Subjective: Patient feeling better overall. Swelling and breathing improving day by day. Chest x-ray PA and LAT from yesterday continued to show small bilateral pleural effusion in the bases. Continues to have good urinary output with Wilhelm catheter. - Physical Exam General: Alert, Oriented x3, Cooperative, No apparent distress Lungs: Diminished Cardiovascular: Regular rate Abdomen: Bowel Sounds Present, Soft, Non Tender, Obese, - - Less tense Extremities: Edema - Mild edema Skin: No rashes Neurological: Cranial nerves II-XII grossly intact Psych/Mental Status: Normal Affect, Alert and oriented to time, place, person, mood and affect Vital Signs Temp Pulse Resp BP Pulse Ox 97.8 F 83 16 154/88 H 95 12/04/17 03:04 12/04/17 06:56 12/04/17 03:33 12/04/17 03:04 12/04/17 07:35 Oxygen Flow Rate (L/min) 3.5 Oxygen Delivery Method Nasal Cannula Weight: 111.9 kg Body Mass Index (BMI) 36.3 Intake and Output for Last 24 Hours 12/02/17 12/03/17 12/04/17 23:59 23:59 23:59 Intake Total 1250 / 1250 1590 / 1590 220 / 220 Output Total 1875 / 1875 3625 / 3625 1750 / 1750 Balance -625 / -625 -2035 / -2035 -1530 / -1530 Laboratory Tests Past 24 Hrs 12/04/17 05:27 Sodium 142 Potassium 4.5 Chloride 107 Carbon Dioxide 28.0 BUN 77 H Creatinine 3.19 H Estim Creat Clear Calc 27.40 Est GFR (MDRD) Af Amer 27 L Est GFR (MDRD) Non-Af 22 L BUN/Creatinine Ratio 24.1 H Glucose 93 Calcium 8.2 L Phosphorus 4.6 Magnesium 2.6 Albumin 1.9 L POC Glucose 12/04/17 12/03/17 12/03/17 06:40 21:09 16:22 POC Glucose 77 185 H 112 H 12/03/17 11:21 POC Glucose 192 H Clinical Impression(s) from Imaging Studies Chest X-Ray 12/03/17 09:34 IMPRESSION: There is mild enlargement of the cardiac silhouette with diffuse edema and moderate bilateral effusions. Vascularity is slightly improved compared to the prior study. There is minimal bibasilar atelectasis. Electronically Signed: Allyssa Degroot MD at 10:34 EDT Tel Direct: [phone], Service support , Medical Necessity - Tobacco Use Smoking Status: Never smoker Tobacco Use: Non-smoker Assessment/Plan Active and Suspected Problems Acute respiratory failure with hypoxia (Acute) 1. Acute on CKD stage III suspect due to urinary retention with underlying diabetic nephropathy Continue to hold ACEI. Creatinine improving but still not back to baseline. May need to be discharged with wilhelm and f/u with urology. CXR pa/lat 2. Fluid retention, CHF. Continue with lasix, increased to 40mg bid. Lasix iv x1 today. Continue with wilhelm to CD. Add flomax. 3. History of noncompliance 4. DM type II on insulin therapy. Nephrotic proteinuria from diabetes 5. Hypertension stable 6. sleep apnea, morbid obesity. 7. Hyperkalemia resolved Follow low K diet
[2017-12-04] MEDS: buPROPion (XL) 300 MG TABLET.XL PO (09:09)
[2017-12-04] MEDS: Furosemide 40 MG Tablet PO ×2 (09:09→17:10)
[2017-12-04] MEDS: amLODIPine 5 MG Tablet PO (09:09)
[2017-12-04] MEDS: Gabapentin 300 MG Capsule PO ×3 (09:10→17:09)
[2017-12-04] MEDS: Atenolol 100 MG Tablet PO (09:10)
[2017-12-04] MEDS: Aspirin 81 MG TAB.CHEW PO (09:10)
--- NOTE | 2017-12-04 09:39 | CASEMGMT ---
ANDER GUERRA met with patient to further discuss transition planning. Patient expresses he would like to go home because he really wants to see his children, however, patient does state he realizes he does need further therapy. Patient asks about home health care in lieu of SNF. ANDER GUERRA educates patient on [facility] services and explains usual visit schedule for therapy is 2-3x/week, and explains SNF/TCU skilled services and expected length of stay. Patient would be agreeable to go to TCU for one to two weeks for skilled therapy and medical optimization. ANDER GUERRA reviewed PT/OT documentation, and note hospital therapy is recommending snf for continued strengthening/conditioning. ANDER GUERRA notes patient is ordered Bipap here, and needs a sleep study, additionally, pt is not back to baseline kidney function. The patient has had periods of confusion while hospitalized. The patient does have a who is available to assist. After presenting patient with options, patient reports he would like to go to a TCU/SNF. ANDER GUERRA let the patient know this information would be given to the SW, along with patient's first choice for TCU at [facility]. Per Kiara DALY, she will follow up. ANDER GUERRA also let patient know, an insurance precertification would be needed and this can sometimes take 48H, and that if in that time, the patient continued to improve, he may be able to go home with [facility], if that is what he would want to do. Patient verbalizes understanding. ANDER GUERRA and SW will continue to follow for transition planning and care coordination. Disposition Plan: Anticipate transfer to TCU or SNF [place], RN-BC, CCM
--- NOTE | 2017-12-04 10:14 | PN_ITS ---
Patient Problems: Active and Suspected Problems Acute respiratory failure with hypoxia (Acute) Subjective: Patient was seen and examined. He is sleeping without BiPAP on. Awakens to voice, denies any shortness of breath, chest discomfort, wheezing, or sputum production. States he is going home today if he can urinate. Objective: Recent lab work and culture data reviewed. MRSA PCR positive. Cumulative fluid balance is -6185 mL, weight continues to improve. Last chest x-ray on showed worsening pulmonary edema. Repeat CXR 12/03 with some improvement. Echocardiogram 11/20/17 showed marked concentric LVH, estimated EF is 65%, trivial right to left intra-atrial shunt, RVSP not estimated. Small pericardial effusion, possible epicardial fat. - Physical Exam General: Alert, Oriented x3, Cooperative, No apparent distress, Well developed, Well nourished, - - No conversational dyspnea HEENT: Atraumatic, Normocephalic Oral: Moist Mucosa Neck: Supple, No Nodes, Trachea Midline Lungs: No rhonchi, No wheeze, No rales, Diminished Cardiovascular: Regular rate, Regular Rhythm, Normal S1, Normal S2 Abdomen: Bowel Sounds Present, Soft, Non Tender, Distended - Improved, Obese Extremities: No clubbing, No cyanosis, Edema - Improved, DAYAN hose in place Skin: - - No changes Neurological: Neuro grossly intact Psych/Mental Status: Alert and oriented to time, place, person, mood and affect Vital Signs Temp Pulse Resp BP Pulse Ox 97.8 F 78 16 152/79 H 93 12/04/17 09:00 12/04/17 09:00 12/04/17 09:00 12/04/17 09:00 12/04/17 09:00 Oxygen Flow Rate (L/min) 3.5 Oxygen Delivery Method Room Air Weight: 246 lb 11.156 oz Body Mass Index (BMI) 36.3 Intake and Output for Last 24 Hours 12/02/17 12/03/17 12/04/17 23:59 23:59 23:59 Intake Total 1250 / 1250 1590 / 1590 220 / 220 Output Total 1875 / 1875 3625 / 3625 1750 / 1750 Balance -625 / -625 -2035 / -2035 -1530 / -1530 Laboratory Tests Past 24 Hrs 12/04/17 05:27 Sodium 142 Potassium 4.5 Chloride 107 Carbon Dioxide 28.0 BUN 77 H Creatinine 3.19 H Estim Creat Clear Calc 27.40 Est GFR (MDRD) Af Amer 27 L Est GFR (MDRD) Non-Af 22 L BUN/Creatinine Ratio 24.1 H Glucose 93 Calcium 8.2 L Phosphorus 4.6 Magnesium 2.6 Albumin 1.9 L POC Glucose 12/04/17 12/03/17 12/03/17 06:40 21:09 16:22 POC Glucose 77 185 H 112 H 12/03/17 11:21 POC Glucose 192 H Medical Necessity - Tobacco Use Smoking Status: Never smoker Tobacco Use: Non-smoker Assessment/Plan Active and Suspected Problems Acute respiratory failure with hypoxia (Acute) RECOMMENDATIONS 1. Wean oxygen supplementation to keep saturations greater than 89% 2. Encourage incentive spirometer and increase activity as tolerated 3. Continue scheduled DuoNeb aerosols, PRN albuterol 4. Continue diuresis, daily weights, strict I&O 5. Education on CHF/diabetes, would benefit from outpatient electric container tester follow-up 6. Utilize BiPAP nightly and with naps, also as rescue 7. Outpatient polysomnogram 8. Walking oximetry prior to discharge 9. Voiding trial 10. Okay to discharge from pulmonary perspective, he can followup with pulmonary in clinic in 2 weeks if he desires, recommend repeat PSG at minimum IMPRESSIONS 1. Acute hypoxic respiratory failure secondary to diastolic CHF exacerbation Patient has been weaned to room air. Likely not infectious but more related to his CHF. No fevers or leukocytosis. MRSA PCR +. Patient does have history of MRSA in a wound in 05/2017. Patient not producing any sputum, can obtain culture if cough becomes productive. Weight when discharged on 11/21 was 213, now 246. Diuresis is complicated by worsening renal function. Dr. Montiel following. Repeat chest x-ray on 12/03 showed diffuse edema with moderate bilateral effusions, slight improvement in vascularity compared to prior study. Minimal bibasilar atelectasis. Patient will require a walking oximetry prior to discharge. He should be utilizing BiPAP when sleeping. 2. Suspected LUANNE Patient reports past polysomnogram a long time ago at [facility]. These records are not available at this time. STOP score +. Patient never previously wore BiPAP therapy secondary to noncompliance. Patient does have daytime sleepiness and hypersomnolence, also snores. Encourage patient to use BiPAP with naps and nightly, can use as rescue if needed. Patient would likely benefit from repeat polysomnogram at discharge. 3. ILDA/chronic kidney disease stage III/obesity/CAD/type 2 diabetes Complicates care, management, recovery, and prognosis. Nephrology is following , creatinine remains elevated. Holding TOM-I. Dr. Montiel adding Flomax for possible urinary retention as cause of nephropathy. May require d/c with wilhelm catheter and urology follow-up. Thank you for the opportunity to participate in this patient's care, please do not hesitate contact us with any further questions or concerns. This note was generated with Jam[employer] dictation software. It may contain incorrect words, spelling, and punctuation that were not noted in checking the note before signing.
--- NOTE | 2017-12-04 10:34 | CASEMGMT ---
RN CHARLIE spoke with patient about placement as this is what therapy is recommending. He said TCU would be his first choice. He would be willing to go to any of the hospital units even if it is [place]. ADDY spoke with Melissa in TCU and they are having some water leak issues so 3 rooms are being closed. ADDY called [facility] TCU and made a referral to Izzy. ADDY also faxed over referral. Plan: SNF pending accepting facility and insurance approval. Kiara RUIZ MSW
[2017-12-04 12:25] LABS: Bedside Glucose 109 mg/dL (70-110)
--- NOTE | 2017-12-04 15:30 | CASEMGMT ---
Spoke with Izzy from [facility] and she said they would like their physician to review patient's information before accepting him. She said she does not anticipate any problems, but will call SW in the am. Kiara MAYORGA
--- NOTE | 2017-12-04 15:46 | PN_ITS ---
Patient Problems: Active and Suspected Problems Acute respiratory failure with hypoxia (Acute) Subjective: Patient respiratory status is better. Sky catheter removed earlier in the morning. 5 hours after Sky catheter removal, no urine retention on bladder scan as per staff Vitals/I&O's: Vital Signs Temp Pulse Resp BP Pulse Ox 97.5 F L 74 17 146/76 H 97 12/04/17 15:00 12/04/17 15:09 12/04/17 15:09 12/04/17 15:00 12/04/17 15:00 Oxygen Flow Rate (L/min) [ 2 AMBULATION with Oxygen] Oxygen Flow Rate (L/min) [ 0 AMBULATING on Room Air] Oxygen Flow Rate (L/min) [At 0 REST on Room Air] Oxygen Flow Rate (L/min) 3.5 Oxygen Delivery Method Room Air Weight: 246 lb 11.156 oz Body Mass Index (BMI) 36.3 Intake and Output for Last 24 Hours 12/02/17 12/03/17 12/04/17 23:59 23:59 23:59 Intake Total 1250 / 1250 1590 / 1590 460 / 460 Output Total 1875 / 1875 3625 / 3625 2250 / 2250 Balance -625 / -625 -2035 / -2035 -1790 / -1790 General: Alert, Oriented x3, Cooperative HEENT: Atraumatic, PERRLA, EOMI, Normocephalic Neck: Supple, No JVD, Negative Carotid Bruits Lungs: No rhonchi, No wheeze, Diminished, Short of Breath Cardiovascular: Regular rate, Regular Rhythm, Normal S1, Normal S2, No murmurs Abdomen: Bowel Sounds Present, Soft, Non Tender Extremities: No edema, Capillary Refill Less than 3 Seconds Skin: No rashes, No breakdown Musculoskeletal: No Tenderness to Palpation of Joints or Extremities Neurological: Cranial nerves II-XII grossly intact Psych/Mental Status: Normal Affect, Appropriate Laboratory Results 12/03/17 16:22: POC Glucose 112 H 12/03/17 21:09: POC Glucose 185 H 12/04/17 05:27: Sodium 142, Potassium 4.5, Chloride 107, Carbon Dioxide 28.0, BUN 77 H, Creatinine 3.19 H, Estim Creat Clear Calc 27.40, Est GFR (MDRD) Af Amer 27 L, Est GFR (MDRD) Non-Af 22 L, BUN/Creatinine Ratio 24.1 H, Glucose 93, Calcium 8.2 L, Phosphorus 4.6, Magnesium 2.6, Albumin 1.9 L 12/04/17 06:40: POC Glucose 77 12/04/17 12:10: POC Glucose 109 Current Medications Acetaminophen (Tylenol) 650 mg PO Q6H PRN PRN PRN Reason: Mild Pain (scale 0-3)/T>100.7 Last Admin: 12/04/17 06:47 Dose: 650 mg Albuterol Sulfate (Ventolin Aerosols) 2.5 mg INHALATION Q2H PRN PRN PRN Reason: SOB &/OR WHEEZING Albuterol/Ipratropium (Duoneb) 3 ml INHALATION Q4HWA.RT [facility] Last Admin: 12/04/17 14:47 Dose: 3 ml Amlodipine Besylate (Norvasc) 5 mg PO DAILY [facility] Last Admin: 12/04/17 09:09 Dose: 5 mg Aspirin (Aspirin, Baby) 81 mg PO DAILYCM [facility] Last Admin: 12/04/17 09:10 Dose: 81 mg Atenolol (Tenormin (Beta Silvana)) 100 mg PO DAILY [facility] Last Admin: 12/04/17 09:10 Dose: 100 mg Atorvastatin Calcium (Lipitor) 20 mg PO QHS [facility] Last Admin: 12/03/17 21:12 Dose: 20 mg Bisacodyl (Dulcolax) 5 mg PO DAILY PRN PRN PRN Reason: Constipation Last Admin: 11/30/17 15:36 Dose: 5 mg Bupropion HCl (Wellbutrin Xl) 300 mg PO DAILY [facility] Last Admin: 12/04/17 09:09 Dose: 300 mg Dextrose (D50w Syringe) 0 gm IV X1 PRN; Protocol PRN Reason: Hypoglycemia Famotidine (Pepcid) 20 mg PO DINNER [facility] Last Admin: 12/03/17 17:03 Dose: 20 mg Furosemide (Lasix) 40 mg PO BID@1000,1800 [facility] Last Admin: 12/04/17 09:09 Dose: 40 mg Gabapentin (Neurontin) 300 mg PO TIDCM [facility] Last Admin: 12/04/17 12:12 Dose: 300 mg Glucagon () 1 mg IM .X1 PRN PRN Reason: Hypoglycemia Heparin Sodium (Porcine) (Heparin Na) 5,000 unit SC BID [facility] Last Admin: 12/04/17 09:10 Dose: 5,000 u Insulin Aspart (Novolog Flexpen (Bk)) 0 units SC ACHS [facility] PRN Reason: Protocol Last Admin: 12/04/17 12:13 Dose: Not Given Insulin Aspart (Novolog Flexpen (Bkc)) 12 units SC TIDCM [facility] Last Admin: 12/04/17 12:13 Dose: 12 units Insulin Detemir (Levemir (Bk)) 45 units SC QHS [facility] Last Admin: 12/03/17 21:12 Dose: 45 u Magnesium Hydroxide (Milk Of Magnesia) 30 ml PO DAILY PRN PRN Reason: Constipation Last Admin: 11/30/17 08:22 Dose: 30 ml Ondansetron HCl (Zofran) 4 mg IV Q8H PRN PRN PRN Reason: NAUSEA Psyllium Hydrophilic Mucilloid (Metamucil) 1 packet PO DAILY PRN PRN PRN Reason: CONSTIPATION Sodium Chloride () 5 - 30 ml IV UD PRN PRN Reason: SALINE FLUSH Last Admin: 12/03/17 20:10 Dose: 10 ml Tamsulosin HCl (Flomax) 0.4 mg PO DAILY@1730 [facility] Last Admin: 12/03/17 17:06 Dose: 0.4 mg Medical Necessity - Tobacco Use Smoking Status: Never smoker Tobacco Use: Non-smoker Assessment/Plan Active and Suspected Problems Acute respiratory failure with hypoxia (Acute) 46 y/o male with PMHx of chronic diastolic heart failure, hypertension, type 2 DM complicated by neuropathy, retinopathy, and nephropathy, recently admitted with acute on chronic diastolic heart failure and hypertensive emergency as well as nephrotic range proteinuria. He has been re-admitted with shortness of breath, weight gain, and bilateral leg swelling. 1. Acute respiratory failure secondary to acute on chronic diastolic CHF/ pulmonary hypertension, patient is on intermittent Bipap and oxygen, Lasix 40 mg twice daily, continue to wean off for spo2>94%, incentive spirometer. Oxygen requirement has decreased to 1 L/min. repeat chest x-ray shows 2. Acute exacerbation of chronic diastolic heart failure secondary to noncompliance and non-continuation of his Lasix: On Lasix 40 mg twice daily. Optimize the volume status with the strict monitoring of I and O's. Moderate bilateral pleural effusion with diffuse pulmonary edema. 2. Type II DM complicated by nephropathy, neuropathy, peripheral neuropathy, BS is fairly uncontrolled,continue on Levemir, premeal novolog at 10units TID, and accucheks with ISS. On NovoLog 10 units at bedtime daily. 3. ILDA on CKD stage III; most probably from CHF/intravascular fluid shift/post renal probably from neurogenic bladder: creatinine is 3.35- 3.74; holding good on the diuretic. Sky catheter removed. No spontaneous urination. Possible neurogenic bladder. CT abdomen done on 11/20/2012 shows normal both kidneys but distended urinary bladder with normal visualized prostate gland. 4. 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 Obesity, diet and exercise is recommended 6. CAD status post RI, aspirin, statin, beta-silvana, will continue to monitor on telemetry 7. DVT prophylaxis with heparin subcu Laboratory Results 12/03/17 21:09: POC Glucose 185 H 12/04/17 05:27: Sodium 142, Potassium 4.5, Chloride 107, Carbon Dioxide 28.0, BUN 77 H, Creatinine 3.19 H, Estim Creat Clear Calc 27.40, Est GFR (MDRD) Af Amer 27 L, Est GFR (MDRD) Non-Af 22 L, BUN/Creatinine Ratio 24.1 H, Glucose 93, Calcium 8.2 L, Phosphorus 4.6, Magnesium 2.6, Albumin 1.9 L 12/04/17 06:40: POC Glucose 77 12/04/17 12:10: POC Glucose 109 Clinical Impression(s) from Imaging Studies Chest X-Ray 11/28/17 09:00 IMPRESSION: Findings in keeping with CHF. Increased right infrahilar markings. Follow-up is recommended. Electronically Signed: Tristan France MD at 9:37 EDT Tel [phone], Service support , Chest X-Ray 12/03/17 09:34 IMPRESSION: There is mild enlargement of the cardiac silhouette with diffuse edema and moderate bilateral effusions. Vascularity is slightly improved compared to the prior study. There is minimal bibasilar atelectasis. Electronically Signed: Allyssa Degroot MD at 10:34 EDT Tel Direct: [phone], Service support , Code Visit Inpatient E&M: 73903 Subs Hosp L3
[2017-12-04] MEDS: Tamsulosin HCl 0.4 MG Capsule PO (17:09)
[2017-12-04] MEDS: Famotidine 20 MG Tablet PO (17:09)
[2017-12-04 17:16] LABS: Bedside Glucose 159 mg/dL (70-110)
[2017-12-04] MEDS: Atorvastatin Calcium 20 MG Tablet PO (21:34)
[2017-12-04] MEDS: 0.9% NaCl Peripheral Flush Adult/Peds IV (21:35)
[2017-12-04 21:45] LABS: Bedside Glucose 178 mg/dL (70-110)
[2017-12-05] VITALS (14 sets, daily range): BP systolic 141–160; BP diastolic 68–85; PULSE 76–89; RESP 12–18; TEMP 36.6–37; O2SAT 91–97
[2017-12-05 06:50] LABS: Bedside Glucose 76 mg/dL (70-110)
[2017-12-05] MEDS: Ipratropium/Albuterol Sulfate 3 ML AMPUL.NEB INHALATION ×4 (06:53→18:43)
[2017-12-05] MEDS: Gabapentin 300 MG Capsule PO ×3 (08:18→16:35)
[2017-12-05] MEDS: Aspirin 81 MG TAB.CHEW PO (08:18)
--- NOTE | 2017-12-05 08:29 | CASEMGMT ---
Received return call from Izzy at [facility] and they will accept patient. She is starting the pre-cert request. Plan: [facility] pending insurance approval. Kiara MAYORGA
--- NOTE | 2017-12-05 08:47 | PCM.PN.REN ---
Patient Problems: Active and Suspected Problems Acute respiratory failure with hypoxia (Acute) Subjective: failed voiding trial. Wilhelm catheter placed back in. Creatinine slowly improving. Urine output good on lasix. Continues to have leg swelling. Breathing improved. - Physical Exam General: Alert, Oriented x3, Cooperative, No apparent distress Oral: Moist Mucosa Neck: Supple Lungs: Diminished Cardiovascular: Regular rate Abdomen: Bowel Sounds Present, Soft, Non Tender, Obese Extremities: Edema - BLE Musculoskeletal: No Muscle Wasting Neurological: Cranial nerves II-XII grossly intact Psych/Mental Status: Normal Affect, Appropriate, Alert and oriented to time, place, person, mood and affect Vital Signs Temp Pulse Resp BP Pulse Ox 98.2 F 81 18 147/84 H 91 12/05/17 03:18 12/05/17 06:53 12/05/17 06:53 12/05/17 03:18 12/05/17 06:53 Oxygen Flow Rate (L/min) [ 2 AMBULATION with Oxygen] Oxygen Flow Rate (L/min) [ 0 AMBULATING on Room Air] Oxygen Flow Rate (L/min) [At 0 REST on Room Air] Oxygen Flow Rate (L/min) 3.5 Oxygen Delivery Method Room Air Weight: 112.3 kg Body Mass Index (BMI) 36.3 Intake and Output for Last 24 Hours 12/03/17 12/04/17 12/05/17 23:59 23:59 23:59 Intake Total 1590 / 1590 940 / 940 220 / 220 Output Total 3625 / 3625 3450 / 3450 500 / 500 Balance -2035 / -2035 -2510 / -2510 -280 / -280 POC Glucose 12/05/17 12/04/17 12/04/17 06:38 21:28 17:07 POC Glucose 76 178 H 159 H 12/04/17 12:10 POC Glucose 109 Medical Necessity - Tobacco Use Smoking Status: Never smoker Tobacco Use: Non-smoker Assessment/Plan Active and Suspected Problems Acute respiratory failure with hypoxia (Acute) 1. Acute on CKD stage III suspect due to urinary retention with underlying diabetic nephropathy Continue to hold ACEI. Creatinine improving but still not back to baseline. Discharge with wilhelm and f/u with urology. 2. Fluid retention, CHF. Continue with lasix, increased to 40mg bid. Continue with wilhelm to CD. Add flomax. 3. History of noncompliance 4. DM type II on insulin therapy. Nephrotic proteinuria from diabetes 5. Hypertension stable 6. sleep apnea, morbid obesity. 7. Hyperkalemia resolved Follow low K diet
--- NOTE | 2017-12-05 09:08 | CASEMGMT ---
ADDY spoke with patient this am regarding going to [facility]. He was in agreement. He then spoke with his who also agreed with this plan. He then asked SW what SW thought he should do. ADDY told him that therapy is recommending he go somewhere for rehab so it would be a good idea to try and get approval from insurance. ADDY told him if insurance denies this then we can send him home with home health. He agreed with this plan. Plan: [facility] pending insurance approval. Kiara RUIZ MSW
[2017-12-05] MEDS: amLODIPine 5 MG Tablet PO (09:19)
[2017-12-05] MEDS: Atenolol 100 MG Tablet PO (09:19)
[2017-12-05] MEDS: Furosemide 40 MG Tablet PO ×2 (09:19→17:06)
[2017-12-05] MEDS: buPROPion (XL) 300 MG TABLET.XL PO (09:19)
--- NOTE | 2017-12-05 09:46 | PCM.PROGNOTE ---
Patient Problems: Active and Suspected Problems Retention, urine (Acute) Acute respiratory failure with hypoxia (Acute) Subjective: The patient was seen and examined. He is sitting up in the chair in no acute distress. He remains on room air and is maintaining appropriate saturations. Denies a cough, shortness of breath, or wheezing. States his Sky catheter had to be reinserted last night secondary to retention. He is awaiting a urology consult. Objective: Recent lab work and culture data reviewed. MRSA PCR positive. Cumulative fluid balance is -6185 mL, weight continues to improve. Last chest x-ray on 12/01/17 showed worsening pulmonary edema. Repeat CXR 12/03 with some improvement. Echocardiogram 11/20/17 showed marked concentric LVH, estimated EF is 65%, trivial right to left intra-atrial shunt, RVSP not estimated. Small pericardial effusion, possible epicardial fat. - Physical Exam General: Alert, Oriented x3, Cooperative, No apparent distress, - - No conversational dyspnea HEENT: Atraumatic, Normocephalic Oral: Moist Mucosa Neck: Supple Lungs: No rhonchi, No wheeze, No rales, Diminished Cardiovascular: Regular rate, Regular Rhythm Abdomen: Bowel Sounds Present, Soft, Non Tender, Distended, Obese Extremities: No clubbing, No cyanosis, Edema, - - DAYAN hose in place Skin: No rashes Musculoskeletal: No Tenderness to Palpation of Joints or Extremities Neurological: Neuro grossly intact Psych/Mental Status: Alert and oriented to time, place, person, mood and affect Vital Signs Temp Pulse Resp BP Pulse Ox 97.9 F 84 16 160/68 H 92 12/05/17 09:15 12/05/17 09:15 12/05/17 09:15 12/05/17 09:15 12/05/17 09:15 Oxygen Flow Rate (L/min) [ 2 AMBULATION with Oxygen] Oxygen Flow Rate (L/min) [ 0 AMBULATING on Room Air] Oxygen Flow Rate (L/min) [At 0 REST on Room Air] Oxygen Flow Rate (L/min) 3.5 Oxygen Delivery Method Room Air Weight: 247 lb 9.266 oz Body Mass Index (BMI) 36.3 Intake and Output for Last 24 Hours 12/03/17 12/04/17 12/05/17 23:59 23:59 23:59 Intake Total 1590 / 1590 940 / 940 220 / 220 Output Total 3625 / 3625 3450 / 3450 500 / 500 Balance -2035 / -2035 -2510 / -2510 -280 / -280 POC Glucose 12/05/17 12/04/17 12/04/17 06:38 21:28 17:07 POC Glucose 76 178 H 159 H 12/04/17 12:10 POC Glucose 109 Medical Necessity - Tobacco Use Smoking Status: Never smoker Tobacco Use: Non-smoker Assessment/Plan Active and Suspected Problems Retention, urine (Acute) Acute respiratory failure with hypoxia (Acute) RECOMMENDATIONS 1. Wean oxygen supplementation to keep saturations greater than 89% 2. Encourage incentive spirometer and increase activity as tolerated 3. Continue scheduled DuoNeb aerosols, PRN albuterol 4. Continue diuresis, daily weights, strict I&O 5. Education on CHF/diabetes, would benefit from outpatient sheet cutter follow-up 6. Utilize BiPAP nightly and with naps, also as rescue 7. Outpatient polysomnogram 8. Okay to discharge from pulmonary perspective, he can followup with pulmonary in clinic in 2 weeks if he desires 9. 2 L of oxygen supplementation with exertion when discharged 10. Given the lack of pulmonary/statistics manager needs, will sign off at this time IMPRESSIONS 1. Acute hypoxic respiratory failure secondary to diastolic CHF exacerbation Patient has been weaned to room air. Likely not infectious but more related to his CHF. No fevers or leukocytosis. MRSA PCR +. Patient does have history of MRSA in a wound in 05/2017. Patient not producing any sputum, can obtain culture if cough becomes productive. Weight when discharged on 11/21 was 213, now 246. Diuresis is complicated by worsening renal function. Dr. Montiel following. Repeat chest x-ray on 12/03 showed diffuse edema with moderate bilateral effusions, slight improvement in vascularity compared to prior study. Minimal bibasilar atelectasis. Patient had walking oximetry on the and desaturated on room air with ambulation to 88%. He should be utilizing BiPAP when sleeping. 2. Suspected LUANNE Patient reports past polysomnogram a long time ago at [facility]. These records are not available at this time. STOP score +. Patient never previously wore BiPAP therapy secondary to noncompliance. Patient does have daytime sleepiness and hypersomnolence, also snores. Encourage patient to use BiPAP with naps and nightly, can use as rescue if needed. Patient would likely benefit from repeat polysomnogram at discharge. He can follow-up in the pulmonary clinic if he so desires. 3. ILDA/chronic kidney disease stage III/obesity/CAD/type 2 diabetes Complicates care, management, recovery, and prognosis. Nephrology is following, creatinine remains elevated. Holding TOM-I. Dr. Montiel adding Flomax for possible urinary retention as cause of nephropathy. He had a voiding trial 12/04, failed with reinsertion of Sky catheter. Urology consult. Thank you for the opportunity to participate in this patient's care, please do not hesitate contact us with any further questions or concerns. This note was generated with [employer] dictation software. It may contain incorrect words, spelling, and punctuation that were not noted in checking the note before signing.
--- NOTE | 2017-12-05 09:49 | PN_ITS ---
Patient Problems: Active and Suspected Problems Retention, urine (Acute) Acute respiratory failure with hypoxia (Acute) Subjective: The patient was seen and examined. He is sitting up in the chair in no acute distress. He remains on room air and is maintaining appropriate saturations. Denies a cough, shortness of breath, or wheezing. States his Sky catheter had to be reinserted last night secondary to retention. He is awaiting a urology consult. Objective: Recent lab work and culture data reviewed. MRSA PCR positive. Cumulative fluid balance is -6185 mL, weight continues to improve. Last chest x-ray on showed worsening pulmonary edema. Repeat CXR 12/03 with some improvement. Echocardiogram 11/20/17 showed marked concentric LVH, estimated EF is 65%, trivial right to left intra-atrial shunt, RVSP not estimated. Small pericardial effusion, possible epicardial fat. - Physical Exam General: Alert, Oriented x3, Cooperative, No apparent distress, - - No conversational dyspnea HEENT: Atraumatic, Normocephalic Oral: Moist Mucosa Neck: Supple Lungs: No rhonchi, No wheeze, No rales, Diminished Cardiovascular: Regular rate, Regular Rhythm Abdomen: Bowel Sounds Present, Soft, Non Tender, Distended, Obese Extremities: No clubbing, No cyanosis, Edema, - - DAYAN hose in place Skin: No rashes Musculoskeletal: No Tenderness to Palpation of Joints or Extremities Neurological: Neuro grossly intact Psych/Mental Status: Alert and oriented to time, place, person, mood and affect Vital Signs Temp Pulse Resp BP Pulse Ox 97.9 F 84 16 160/68 H 92 12/05/17 09:15 12/05/17 09:15 12/05/17 09:15 12/05/17 09:15 12/05/17 09:15 Oxygen Flow Rate (L/min) [ 2 AMBULATION with Oxygen] Oxygen Flow Rate (L/min) [ 0 AMBULATING on Room Air] Oxygen Flow Rate (L/min) [At 0 REST on Room Air] Oxygen Flow Rate (L/min) 3.5 Oxygen Delivery Method Room Air Weight: 247 lb 9.266 oz Body Mass Index (BMI) 36.3 Intake and Output for Last 24 Hours 12/03/17 12/04/17 12/05/17 23:59 23:59 23:59 Intake Total 1590 / 1590 940 / 940 220 / 220 Output Total 3625 / 3625 3450 / 3450 500 / 500 Balance -2035 / -2035 -2510 / -2510 -280 / -280 POC Glucose 12/05/17 12/04/17 12/04/17 06:38 21:28 17:07 POC Glucose 76 178 H 159 H 12/04/17 12:10 POC Glucose 109 Medical Necessity - Tobacco Use Smoking Status: Never smoker Tobacco Use: Non-smoker Assessment/Plan Active and Suspected Problems Retention, urine (Acute) Acute respiratory failure with hypoxia (Acute) RECOMMENDATIONS 1. Wean oxygen supplementation to keep saturations greater than 89% 2. Encourage incentive spirometer and increase activity as tolerated 3. Continue scheduled DuoNeb aerosols, PRN albuterol 4. Continue diuresis, daily weights, strict I&O 5. Education on CHF/diabetes, would benefit from outpatient train control technician follow-up 6. Utilize BiPAP nightly and with naps, also as rescue 7. Outpatient polysomnogram 8. Okay to discharge from pulmonary perspective, he can followup with pulmonary in clinic in 2 weeks if he desires 9. 2 L of oxygen supplementation with exertion when discharged 10. Given the lack of pulmonary/health technician hearing needs, will sign off at this time IMPRESSIONS 1. Acute hypoxic respiratory failure secondary to diastolic CHF exacerbation Patient has been weaned to room air. Likely not infectious but more related to his CHF. No fevers or leukocytosis. MRSA PCR +. Patient does have history of MRSA in a wound in 05/2017. Patient not producing any sputum, can obtain culture if cough becomes productive. Weight when discharged on 11/21 was 213, now 246. Diuresis is complicated by worsening renal function. Dr. Montiel following. Repeat chest x-ray on 12/03 showed diffuse edema with moderate bilateral effusions, slight improvement in vascularity compared to prior study. Minimal bibasilar atelectasis. Patient had walking oximetry on the and desaturated on room air with ambulation to 88%. He should be utilizing BiPAP when sleeping. 2. Suspected LUANNE Patient reports past polysomnogram a long time ago at [facility]. These records are not available at this time. STOP score +. Patient never previously wore BiPAP therapy secondary to noncompliance. Patient does have daytime sleepiness and hypersomnolence, also snores. Encourage patient to use BiPAP with naps and nightly, can use as rescue if needed. Patient would likely benefit from repeat polysomnogram at discharge. He can follow-up in the pulmonary clinic if he so desires. 3. ILDA/chronic kidney disease stage III/obesity/CAD/type 2 diabetes Complicates care, management, recovery, and prognosis. Nephrology is following , creatinine remains elevated. Holding TOM-I. Dr. Montiel adding Flomax for possible urinary retention as cause of nephropathy. He had a voiding trial 12/04 , failed with reinsertion of Sky catheter. Urology consult. Thank you for the opportunity to participate in this patient's care, please do not hesitate contact us with any further questions or concerns. This note was generated with [employer] dictation software. It may contain incorrect words, spelling, and punctuation that were not noted in checking the note before signing.
--- NOTE | 2017-12-05 11:09 | PCM.PN.HOSP ---
Patient Problems: Active and Suspected Problems Retention, urine (Acute) Acute respiratory failure with hypoxia (Acute) Subjective: Patient had Sky catheter removed yesterday but was not able to void even with urine retention of 500 mL. Patient had intermittent catheterization and then retention and had Sky catheterization. Seen by urologist. Discussed with Dr. Shaw. Vitals/I&O's: Vital Signs Temp Pulse Resp BP Pulse Ox 97.9 F 85 16 160/68 H 92 12/05/17 09:15 12/05/17 11:03 12/05/17 09:15 12/05/17 09:15 12/05/17 09:15 Oxygen Flow Rate (L/min) [ 2 AMBULATION with Oxygen] Oxygen Flow Rate (L/min) [ 0 AMBULATING on Room Air] Oxygen Flow Rate (L/min) [At 0 REST on Room Air] Oxygen Flow Rate (L/min) 3.5 Oxygen Delivery Method Room Air Weight: 247 lb 9.266 oz Body Mass Index (BMI) 36.3 Intake and Output for Last 24 Hours 12/03/17 12/04/17 12/05/17 23:59 23:59 23:59 Intake Total 1590 / 1590 940 / 940 220 / 220 Output Total 3625 / 3625 3450 / 3450 500 / 500 Balance -2035 / -2035 -2510 / -2510 -280 / -280 General: Alert, Oriented x3, Cooperative HEENT: Atraumatic, PERRLA, EOMI, Normocephalic Neck: Supple, No JVD, Negative Carotid Bruits Lungs: Diminished, Rales Cardiovascular: Regular rate, Regular Rhythm, Normal S1, Normal S2, No murmurs Abdomen: Bowel Sounds Present, Soft, Non Tender, Non-Distended, - - Catheter draining clear urine. Penile and scrotal edema. Extremities: Capillary Refill Less than 3 Seconds, Edema Skin: No rashes, No breakdown Musculoskeletal: No Tenderness to Palpation of Joints or Extremities Neurological: Cranial nerves II-XII grossly intact Psych/Mental Status: Normal Affect, Appropriate Laboratory Results 12/04/17 12:10: POC Glucose 109 12/04/17 17:07: POC Glucose 159 H 12/04/17 21:28: POC Glucose 178 H 12/05/17 06:38: POC Glucose 76 Current Medications Acetaminophen (Tylenol) 650 mg PO Q6H PRN PRN PRN Reason: Mild Pain (scale 0-3)/T>100.7 Last Admin: 12/04/17 22:08 Dose: 650 mg Albuterol Sulfate (Ventolin Aerosols) 2.5 mg INHALATION Q2H PRN PRN PRN Reason: SOB &/OR WHEEZING Albuterol/Ipratropium (Duoneb) 3 ml INHALATION Q4HWA.RT [facility] Last Admin: 12/05/17 10:41 Dose: 3 ml Amlodipine Besylate (Norvasc) 5 mg PO DAILY [facility] Last Admin: 12/05/17 09:19 Dose: 5 mg Aspirin (Aspirin, Baby) 81 mg PO DAILYCM [facility] Last Admin: 12/05/17 08:18 Dose: 81 mg Atenolol (Tenormin (Beta Silvana)) 100 mg PO DAILY [facility] Last Admin: 12/05/17 09:19 Dose: 100 mg Atorvastatin Calcium (Lipitor) 20 mg PO QHS [facility] Last Admin: 12/04/17 21:34 Dose: 20 mg Bisacodyl (Dulcolax) 5 mg PO DAILY PRN PRN PRN Reason: Constipation Last Admin: 11/30/17 15:36 Dose: 5 mg Bupropion HCl (Wellbutrin Xl) 300 mg PO DAILY [facility] Last Admin: 12/05/17 09:19 Dose: 300 mg Dextrose (D50w Syringe) 0 gm IV X1 PRN; Protocol PRN Reason: Hypoglycemia Famotidine (Pepcid) 20 mg PO DINNER [facility] Last Admin: 12/04/17 17:09 Dose: 20 mg Furosemide (Lasix) 40 mg PO BID@1000,1800 [facility] Last Admin: 12/05/17 09:19 Dose: 40 mg Furosemide (Lasix) 40 mg IV X1 ONE Stop: 12/05/17 14:01 Gabapentin (Neurontin) 300 mg PO TIDCM [facility] Last Admin: 12/05/17 08:18 Dose: 300 mg Glucagon () 1 mg IM .X1 PRN PRN Reason: Hypoglycemia Heparin Sodium (Porcine) (Heparin Na) 5,000 unit SC BID [facility] Last Admin: 12/05/17 09:19 Dose: 5,000 u Insulin Aspart (Novolog Flexpen (Bkc)) 0 units SC ACHS HEDY PRN Reason: Protocol Last Admin: 12/05/17 07:35 Dose: Not Given Insulin Aspart (Novolog Flexpen ([facility])) 12 units SC TIDCM [facility] Last Admin: 12/05/17 08:18 Dose: 12 units Insulin Detemir (Levemir ([facility])) 45 units SC QHS [facility] Last Admin: 12/04/17 21:33 Dose: 45 u Magnesium Hydroxide (Milk Of Magnesia) 30 ml PO DAILY PRN PRN Reason: Constipation Last Admin: 11/30/17 08:22 Dose: 30 ml Ondansetron HCl (Zofran) 4 mg IV Q8H PRN PRN PRN Reason: NAUSEA Psyllium Hydrophilic Mucilloid (Metamucil) 1 packet PO DAILY PRN PRN PRN Reason: CONSTIPATION Sodium Chloride () 5 - 30 ml IV UD PRN PRN Reason: SALINE FLUSH Last Admin: 12/04/17 21:35 Dose: 10 ml Tamsulosin HCl (Flomax) 0.4 mg PO DAILY@1730 [facility] Last Admin: 12/04/17 17:09 Dose: 0.4 mg Medical Necessity - Tobacco Use Smoking Status: Never smoker Tobacco Use: Non-smoker Assessment/Plan Active and Suspected Problems Retention, urine (Acute) Acute respiratory failure with hypoxia (Acute) 46 y/o male with PMHx of chronic diastolic heart failure, hypertension, type 2 DM complicated by neuropathy, retinopathy, and nephropathy, recently admitted with acute on chronic diastolic heart failure and hypertensive emergency as well as nephrotic range proteinuria. He has been re-admitted with shortness of breath, weight gain, and bilateral leg swelling. 1. Acute respiratory failure secondary to acute on chronic diastolic CHF/pulmonary hypertension, patient is on intermittent Bipap and oxygen, Lasix 40 mg twice daily, continue to wean off for spo2>94%, incentive spirometer. Oxygen requirement has decreased to 1 L/min. repeat chest x-ray shows 2. Acute exacerbation of chronic diastolic heart failure secondary to noncompliance and non-continuation of his Lasix: On Lasix 40 mg twice daily. Optimize the volume status with the strict monitoring of I and O's. Moderate bilateral pleural effusion with diffuse pulmonary edema. 2. Type II DM complicated by nephropathy, neuropathy, peripheral neuropathy, BS is fairly uncontrolled,continue on Levemir, premeal novolog at 10units TID, and accucheks with ISS. On NovoLog 10 units at bedtime daily. 3. ILDA on CKD stage III; most probably from CHF/intravascular fluid shift/post renal probably from neurogenic bladder: creatinine is 3.35- 3.74; holding good on the diuretic. Sky catheter removed. No spontaneous urination. Possible neurogenic bladder. CT abdomen done on 11/20/2012 shows normal both kidneys but distended urinary bladder with normal visualized prostate gland. Subacute urine retention most probably due to chronic neurogenic bladder patient seen by Dr. Garcia. He advised to leave the Sky catheter and wait for penile and scrotal edema to subside. Patient is to follow-up in the office in 2-3 weeks and then trial. Increased Flomax twice daily. May consider bethanechol as an outpatient. 4. 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 Obesity, diet and exercise is recommended 6. CAD status post ID, aspirin, statin, beta-silvana, will continue to monitor on telemetry 7. DVT prophylaxis with heparin subcut Needs SNF for multiple medical conditions and physical deconditioned as mentioned above This note was generated with [employer] dictation software. Every effort was made to ensure accuracy, however computerized manager analysis mistakes may persist. Laboratory Results 12/04/17 17:07: POC Glucose 159 H 12/04/17 21:28: POC Glucose 178 H 12/05/17 06:38: POC Glucose 76 12/05/17 11:22: POC Glucose 81 Clinical Impression(s) from Imaging Studies Chest X-Ray 11/28/17 09:00 IMPRESSION: Findings in keeping with CHF. Increased right infrahilar markings. Follow-up is recommended. Electronically Signed: Tristan France MD at 9:37 EDT Tel [phone], Service support , Chest X-Ray 12/03/17 09:34 IMPRESSION: There is mild enlargement of the cardiac silhouette with diffuse edema and moderate bilateral effusions. Vascularity is slightly improved compared to the prior study. There is minimal bibasilar atelectasis. Electronically Signed: Allyssa Degroot MD at 10:34 EDT Tel Direct: [phone], Service support , Code Visit Inpatient E&M: 41712 Subs Hosp L3
[2017-12-05 11:36] LABS: Bedside Glucose 81 mg/dL (70-110)
--- NOTE | 2017-12-05 12:03 | CON.PCM_ITS ---
Problem List (1) Retention, urine Status: Acute Reason for Consult Date of Consultation: 12/05/17 Reason for Consultation: Urinary Retention History of Present Illness: The patient is a 47 year old M with type 2 diabetes, poorly controlled, for over 20 years. His complications secondary to the diabetes: ocular, renal, neural, and possibly cardiac. Presented to the emergency room with CHF, difficulty breathing and an elevated creatinine. In the fall 2016 his creatinine was 1.9 and now it was over 8. The CT scan at that time showed significantly dilated bladder, but normal ureters and no evidence of hydronephrosis. He has been catheterized and has over 500 cc. They have tried intermittent cath and patient not able to void. Currently due to the neuropathy has difficulty with ambulation. States that when the urinary retention was discovered he was not having any sensation of needing to void. [] Past Medical History Past Medical History (Chronic Problems): Chronic Problems Obesity (BMI 30-39.9) (Chronic) Noncompliance (Chronic) Diabetic neuropathy (Chronic) Diabetic nephropathy (Chronic) Diabetic retinopathy (Chronic) HTN (hypertension) (Chronic) HLD (hyperlipidemia) (Chronic) Blind left eye (Chronic) Diabetes mellitus type II, uncontrolled (Chronic) Anxiety and depression (Chronic) GERD (gastroesophageal reflux disease) (Chronic) Chewing tobacco nicotine dependence (Chronic) CKD (chronic kidney disease) stage 3, GFR 30-59 ml/min (Chronic) Leg edema, right (Chronic) History of acute myocardial infarction (Chronic) Allergies No Known Allergies Allergy (Verified 11/28/17 08:44) Home Medications: Ambulatory Orders Medication Instructions Recorded Gabapentin [Neurontin] 300 mg PO TIDCM 07/15/13 Amlodipine [Norvasc] 5 mg PO DAILY 05/06/17 Bupropion HCl [Wellbutrin Xl] 300 mg PO DAILY 05/06/17 Aspirin 81 mg PO DAILY 11/19/17 Atorvastatin Calcium [Lipitor] 20 mg PO DAILY 11/19/17 Atenolol [Tenormin (beta elizabeth)] 100 mg PO DAILY 11/28/17 Insulin Aspart [Novolog Flexpen] 15 units SC TIDCM 11/28/17 Ranitidine HCl [Zantac] 300 mg PO DINNER 11/28/17 Acetaminophen [Tylenol Tablet] 650 mg PO Q6H PRN PRN tablet 12/05/17 Albuterol Aerosols [Ventolin 2.5 mg INHALATION Q2H PRN PRN 12/05/17 Aerosols] vial.neb. Furosemide [Lasix] 40 mg PO BID@1000,1800 tablet 12/05/17 Insulin Aspart [Novolog Flexpen] See Protocol SC ACHS flexpen 12/05/17 Insulin Glargine [Lantus SoloStar 40 units SC QHS #0 12/05/17 Pen] Psyllium [Metamucil] 1 packet PO DAILY PRN PRN packet 12/05/17 Tamsulosin HCl [Flomax] 0.4 mg PO DAILY@1730 capsule 12/05/17 Surgical History: cholecystectomy, - - Cholecystectomy, left retinal tear repair attempts, right eye laser surgery. Psychiatric History: Anxiety, Depression Lives: Alone Smoking Status: Never smoker Tobacco Use: Non-smoker Alcohol: Rare Drugs: None - *Family History Maternal History Items: Heart Disease Paternal History Items: Cancer - Father w/ Colon CA. Sibling History Items: Diabetes - sister, brother who passed, no kidney disease Review of Systems Comment: Did a general ROS. And patient besides the neuropathy, patient also is having difficulty walking. He has had some evidence of gastroparesis with occasional diarrhea and then constipation. Not aware of any difficulty voiding , other than occasional weak stream and frequency. Patient Problems: Active and Suspected Problems Retention, urine (Acute) Acute respiratory failure with hypoxia (Acute) - Physical Exam General: Alert, Oriented x3 Abdomen: Bowel Sounds Present, Obese, - - Very mild edema of panniculus noted Extremities: Edema Comment: exam circumcised, with indwelling catheter, significant penile and scrot Vital Signs Temp Pulse Resp BP Pulse Ox 97.9 F 85 18 160/68 H 92 12/05/17 09:15 12/05/17 11:03 12/05/17 10:41 12/05/17 09:15 12/05/17 09:15 Oxygen Flow Rate (L/min) [ 2 AMBULATION with Oxygen] Oxygen Flow Rate (L/min) [ 0 AMBULATING on Room Air] Oxygen Flow Rate (L/min) [At 0 REST on Room Air] Oxygen Flow Rate (L/min) 3.5 Oxygen Delivery Method Room Air Weight: 112.3 kg Body Mass Index (BMI) 36.3 Intake and Output for Last 24 Hours 12/03/17 12/04/1718 23:59 23:59 23:59 Intake Total 1590 / 1590 940 / 940 700 / 700 Output Total 3625 / 3625 3450 / 3450 1000 / 1000 Balance -2035 / -2035 -2510 / -2510 -300 / -300 POC Glucose 12/05/17 12/05/17 12/04/17 11:22 06:38 21:28 POC Glucose 81 76 178 H 12/04/17 12/04/17 17:07 12:10 POC Glucose 159 H 109 Assessment/Plan Active and Suspected Problems Retention, urine (Acute) Acute respiratory failure with hypoxia (Acute) On Px unable to give entire descriptions as noted above. Patient has an indwelling catheter, meatus is unremarkable but has significant penile and scrotal edema. Some edema of the talus and thighs. Urine is clear Assessment is likely has chronic neuropathy related to complications from diabetes. I suspect this is affecting the GI and systems. No evidence of hydronephrosis and with the elevated creatinine I suspect this is more related to CHF and diabetic nephropathy. With the significant edema as well as neuropathy patient will be unlikely to void on his own at this time Recommend leaving catheter in for time being Start on Flomax twice daily Unlikely that Proscar or Avodart would be helpful at this age edema settles down and in a few days may try a voiding trial, when ambulatory If no success consider adding bethanechol, but would be difficult to take due to timing, being n.p.o. and do all his other medications. Likely will need to learn self cath at some point Would have patient follow-up in the office in a few weeks. Take you for allowing me to assist in the care of this patient sincerely [facility]
[2017-12-05] MEDS: 0.9% NaCl Peripheral Flush Adult/Peds IV ×2 (14:00→21:11)
[2017-12-05] MEDS: Furosemide 40 MG/4 ML Vial IV (14:00)
[2017-12-05] MEDS: Famotidine 20 MG Tablet PO (16:35)
[2017-12-05] MEDS: Tamsulosin HCl 0.4 MG Capsule PO (16:35)
[2017-12-05 17:06] LABS: Bedside Glucose 99 mg/dL (70-110)
[2017-12-05] MEDS: Atorvastatin Calcium 20 MG Tablet PO (21:08)
--- NOTE | 2017-12-05 22:45 | CPS ---
PT REFUSED TO WEAR BIPAP TONIGHT
[2017-12-06] VITALS (9 sets, daily range): BP systolic 146–182; BP diastolic 81–83; PULSE 81–88; RESP 16–19; TEMP 36.3–36.9; O2SAT 90–95
[2017-12-06] MEDS: Acetaminophen 325 MG Tablet 650 MG PO (00:39)
[2017-12-06 00:50] LABS: Bedside Glucose 209 mg/dL (70-110)
[2017-12-06 03:36] LABS: Bedside Glucose 182 mg/dL (70-110)
[2017-12-06 06:16] LABS: Anion Gap 6 (5-15); BUN 77 mg/dL (7-18); BUN/Creat Ratio 22.1 RATIO (10-20); Calcium,Total 8.3 mg/dL (8.5-10.1); Chloride 104 mmol/L (98-107); Creatinine, Serum 3.48 mg/dL (0.70-1.30); EST Glomerular Filtration Rate 20 mL/min (>60); Est Glom Filt Rate - Afr Amer 24 mL/min (>60); Estimated Creatinine Clearance 25.11 ml/min; Glucose 155 mg/dL (74-106); Potassium 4.9 mmol/L (3.5-5.1); Sodium Level 140 mmol/L (136-145)
[2017-12-06 06:56] LABS: Bedside Glucose 154 mg/dL (70-110)
[2017-12-06] MEDS: Ipratropium/Albuterol Sulfate 3 ML AMPUL.NEB INHALATION ×2 (06:56→11:04)
--- NOTE | 2017-12-06 09:26 | CASEMGMT ---
ADDY spoke with Izzy from [facility] and she asked ADDY to fax updated PT/OT notes. ADDY faxed updated PT/OT to [facility]. Kiara RUIZ MSW
[2017-12-06] MEDS: Aspirin 81 MG TAB.CHEW PO (10:06)
[2017-12-06] MEDS: Gabapentin 300 MG Capsule PO ×2 (10:06→11:34)
[2017-12-06] MEDS: Tamsulosin HCl 0.4 MG Capsule PO (10:07)
[2017-12-06] MEDS: Furosemide 40 MG Tablet PO (10:08)
[2017-12-06] MEDS: buPROPion (XL) 300 MG TABLET.XL PO (10:08)
[2017-12-06] MEDS: Atenolol 100 MG Tablet PO (10:08)
[2017-12-06] MEDS: amLODIPine 5 MG Tablet PO (10:08)
--- NOTE | 2017-12-06 11:59 | PCM.DC ---
- Discharge Diagnoses Current Active Problems: Current Active and Chronic Problems Retention, urine (Acute) Acute respiratory failure with hypoxia (Acute) You will use the following diet at home:: Calorie/Carbohydrate Controlled (specify 1200, 1400, etc) - 1800 ADA Discharge Activity: May not drive while taking narcotic pain medications. Additional Instructions: Patient is recommended outpatient sleep study test. Allergies/Adverse Reactions: Allergies No Known Allergies Allergy (Verified 11/28/17 08:44) Medications to take at Discharge Gabapentin [Neurontin] 300 mg PO TIDCM 07/15/13 Amlodipine [Norvasc] 5 mg PO DAILY 05/06/17 Bupropion HCl [Wellbutrin Xl] 300 mg PO DAILY 05/06/17 Aspirin 81 mg PO DAILY 11/19/17 Atorvastatin Calcium [Lipitor] 20 mg PO DAILY 11/19/17 Atenolol [Tenormin (beta elizabeth)] 100 mg PO DAILY 11/28/17 Ranitidine HCl [Zantac] 300 mg PO DINNER 11/28/17 Insulin Aspart [Novolog Flexpen] See Protocol SC ACHS flexpen 12/05/17 Psyllium [Metamucil] 1 packet PO DAILY PRN PRN packet 12/05/17 Albuterol Inhaler [Ventolin Hfa] 2 puff INHALATION Q4H PRN PRN #1 inhaler 12/06/17 Furosemide 40 mg PO BID #60 tab 12/06/17 Insulin Aspart [Novolog Flexpen] 15 units SC TIDCM #1 flexpen 12/06/17 Insulin Glargine [Lantus SoloStar Pen] 40 units SC QHS #1 pen 12/06/17 Tamsulosin HCl [Flomax] 0.4 mg PO BID@0830,1730 #60 cap 12/06/17 The following prescriptions were given: Albuterol Inhaler [Ventolin Hfa] 2 puff INHALATION Q4H PRN PRN #1 inhaler PRN Reason: Sob &/Or Wheezing Insulin Glargine [Lantus SoloStar Pen] 40 units SC QHS #1 pen Tamsulosin HCl [Flomax] 0.4 mg PO BID@0830,1730 #60 cap Furosemide 40 mg PO BID #60 tab Insulin Aspart [Novolog Flexpen] 15 units SC TIDCM #1 flexpen Primary Care Physician: Zaida Mcneil MD [Primary Care Provider] - Please follow up with your Primary Care Physician in: In 2 weeks Please Follow Up With: José Hutchinson NP-C When: in 2 week Please Follow Up With: Vj Cabral MD When: in 3 weeks Please Follow Up With: Joao Hayes DO When: in 4 weeks for PFT
[2017-12-06 12:40] LABS: Bedside Glucose 153 mg/dL (70-110)
--- NOTE | 2017-12-06 14:33 | CASEMGMT ---
RN CHARLIE spoke with Mary with [facility] to inquire on ability to accept patient. Per Mary, [facility] can accept patient and will be a start of care tomorrow. SW is updating patient and patient's spouse. HALLIE DooleyN, RN-, [facility]
--- NOTE | 2017-12-06 15:19 | CASEMGMT ---
ADDY spoke with patient's via phone. She is concerned about patient coming home as she is afraid he will fall. She said he is not allowed to get up alone at the hospital. There will not always be someone with him at home as she works until 430. ADDY told her that is a safety precaution for the hospital. Therapy is not recommending 24/7 supervision. ADDY told her we could set up home health. A nurse and therapy would come out to the home. She wanted to know how often and how long would they stay. ADDY told her SW cannot answer that question. ADDY explained a nurse will come out and do an assessment and work with insurance to see what they would approve. ADDY told her that it would not be in patient's best interest to keep him in the hospital waiting on insurance to give us an answer on whether or not they would approve half-way. ADDY explained that he will continue to get better and make it even more likely insurance will deny half-way stay. ADDY told her we can wait until 4p today and if insurance does not give us an answer we have him set up with home health. She asked ADDY to let patient know about conversation. ADDY called Izzy at [facility]. She said they asked for more information on patient. The particular therapy notes that were sent from yesterday indicated patient walked 250' with either contact guard or stand by assist with a wheeled walker. Izzy will check in with ADDY before she leaves for the day. Kiara MAYORGA
--- NOTE | 2017-12-06 16:02 | CASEMGMT ---
Received a call from Izzy and she did not hear from insurance. ADDY told her the plan is home with home health. SW called patient's and let her know. ADDY also told her appts were scheduled to follow up with Pulmonology and endocrinology, but someone would call her on Saturday with Urology appt as their office was closed for the day. She thanked SW. ADDY told her home health will call to set up appt tomorrow. ADDY also told her when they have home health there is a nurse biofuels plant operations engineer 01/04. She was relieved to hear this. ADDY also told RN and patient this information. Plan: home with [facility] nursing home, PT, and OT. Insurance did not give us an answer on going to a [facility] in a timely manner and it was not necessary to keep patient in the hospital over the weekend. Kiara RUIZ MSW
--- NOTE | 2017-12-06 16:04 | CASEMGMT ---
Patient needed follow-up appnt scheduled with Pulmonary and Urology. ANDER GUERRA scheduled pulmonary with [facility]. ANDER GUERRA attempted to schedule with Urology, but office was closed. Report given via email message for Saturday ANDER GUERRA, Izzy Moscoso, to follow-up with appnt for Urology-patient is being discharged with a wilhelm catheter. ADDY Sweeney aware appnt needs scheduled on Saturday, as well. HALLIE DooleyN, RN-BC, CCM
--- NOTE | 2017-12-06 16:24 | DS.PCM_ITS ---
Discharge Date and Diagnosis - Problem List Patient Problems: Active and Suspected Problems Retention, urine (Acute) Acute respiratory failure with hypoxia (Acute) Date of Admission: 11/28/17 Date of Discharge: 12/06/17 - Primary Discharge Diagnosis Active and Suspected Problems 1. Acute respiratory failure secondary to acute on chronic diastolic CHF/ pulmonary hypertension: Hypoxia resolved. Patient pulse ox 93% on room air. 2. Acute exacerbation of chronic diastolic heart failure secondary to noncompliance and non-continuation of his Lasix: Echo done on 11/20/2017 could not estimate RVSP because of technically difficult study. Moderate concentric LVH with EF 65%. Normal RV size and systolic function. Normal right and left atria. Normal tricuspid valve. IVC collapse with sniff with normal IVC reported. Type II DM complicated by a diabetic nephropathy and peripheral neuropathy 3. ILDA on CKD stage III; most probably from CHF/intravascular fluid shift/post renal probably from neurogenic bladder: Subacute urine retention most probably due to chronic neurogenic bladder 4. Nephrotic range proteinuria likely secondary to type II DM, diabetic nephropathy: - Secondary Discharge Diagnosis Chronic Problems Obesity (BMI 30-39.9) (Chronic) Noncompliance (Chronic) Diabetic neuropathy (Chronic) Diabetic nephropathy (Chronic) Diabetic retinopathy (Chronic) HTN (hypertension) (Chronic) HLD (hyperlipidemia) (Chronic) Blind left eye (Chronic) Diabetes mellitus type II, uncontrolled (Chronic) Anxiety and depression (Chronic) GERD (gastroesophageal reflux disease) (Chronic) Chewing tobacco nicotine dependence (Chronic) CKD (chronic kidney disease) stage 3, GFR 30-59 ml/min (Chronic) Leg edema, right (Chronic) History of acute myocardial infarction (Chronic) Hospital Course and Treatment Operations: None Summary of Care Provided: The patient is a 47 year old M with PMHx of chronic diastolic heart failure, hypertension, type 2 DM complicated by neuropathy, retinopathy, and nephropathy , recently admitted with acute on chronic diastolic heart failure and hypertensive emergency as well as nephrotic range proteinuria. He has been re- admitted with shortness of breath, weight gain, and bilateral leg swelling. And examined today General: Alert, Oriented x3, Cooperative HEENT: Atraumatic, PERRLA, EOMI, Normocephalic Neck: Supple, No JVD, Negative Carotid Bruits Lungs: Diminished, Rales Cardiovascular: Regular rate, Regular Rhythm, Normal S1, Normal S2, No murmurs Abdomen: Bowel Sounds Present, Soft, Non Tender, Non-Distended, - - Catheter draining clear urine. Penile and scrotal edema. Extremities: Capillary Refill Less than 3 Seconds, Edema Skin: No rashes, No breakdown Musculoskeletal: No Tenderness to Palpation of Joints or Extremities Neurological: Cranial nerves II-XII grossly intact Psych/Mental Status: Normal Affect, Appropriate 1. Acute respiratory failure secondary to acute on chronic diastolic CHF/ pulmonary hypertension, patient is on intermittent Bipap and oxygen, Lasix 40 mg twice daily, continue to wean off for spo2>94%, incentive spirometer. Hypoxia resolved. Patient pulse ox 93% on room air. 2. Acute exacerbation of chronic diastolic heart failure secondary to noncompliance and non-continuation of his Lasix: On Lasix 40 mg twice daily. Optimize the volume status with the strict monitoring of I and O's. Moderate bilateral pleural effusion with diffuse pulmonary edema. Echo done on 11/20/2017 could not estimate RVSP because of technically difficult study. Moderate concentric LVH with EF 65%. Normal RV size and systolic function. Normal right and left atria. Normal tricuspid valve. IVC collapse with sniff with normal IVC reported. Type II DM complicated by nephropathy, neuropathy, peripheral neuropathy, BS is fairly uncontrolled,continue on Levemir, premeal novolog at 10units TID, and accucheks with ISS. On NovoLog 10 units at bedtime daily. 3. ILDA on CKD stage III; most probably from CHF/intravascular fluid shift/post renal probably from neurogenic bladder: creatinine is 3.35- 3.74; holding good on the diuretic. Sky catheter removed. No spontaneous urination. Possible neurogenic bladder. CT abdomen done on 11/20/2012 shows normal both kidneys but distended urinary bladder with normal visualized prostate gland. Subacute urine retention most probably due to chronic neurogenic bladder patient seen by Dr. Garcia. He advised to leave the Sky catheter and wait for penile and scrotal edema to subside. Patient is to follow-up in the office in 2-3 weeks and then trial. Increased Flomax twice daily. May consider bethanechol as an outpatient. 4. 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 Obesity, diet and exercise is recommended 6. CAD status post VA, aspirin, statin, beta-elizabeth, will continue to monitor on telemetry 7. DVT prophylaxis with heparin subcut Patient can walk comfortably. SNF was denied. Patient is being discharged with home health care. Discharge medication reconciliation done. Discharge follow-up instructions completed. Patient needs outpatient PFT and sleep study as I think patient might have restrictive lung disease/obstructive sleep apnea. There is suspicion of pulmonary hypertension. Total time spent, exact 32 minutes on discharge meds reconciliation, examination , review of imaging and blood test and discussion with the patient on follow-up instructions. This note was generated with [employer] dictation software. Every effort was made to ensure accuracy, however computerized painter sign maintenance mistakes may persist. Discharge Activity: May not drive while taking narcotic pain medications. Home Medications: Medications to take at Discharge Gabapentin [Neurontin] 300 mg PO TIDCM 07/15/13 Amlodipine [Norvasc] 5 mg PO DAILY 05/06/17 Bupropion HCl [Wellbutrin Xl] 300 mg PO DAILY 05/06/17 Aspirin 81 mg PO DAILY 11/19/17 Atorvastatin Calcium [Lipitor] 20 mg PO DAILY 11/19/17 Atenolol [Tenormin (beta elizabeth)] 100 mg PO DAILY 11/28/17 Ranitidine HCl [Zantac] 300 mg PO DINNER 11/28/17 Insulin Aspart [Novolog Flexpen] See Protocol SC ACHS flexpen 12/05/17 Psyllium [Metamucil] 1 packet PO DAILY PRN PRN packet 12/05/17 Albuterol Inhaler [Ventolin Hfa] 2 puff INHALATION Q4H PRN PRN #1 inhaler Furosemide 40 mg PO BID #60 tab 12/06/17 Insulin Aspart [Novolog Flexpen] 15 units SC TIDCM #1 flexpen 12/06/17 Insulin Glargine [Lantus SoloStar Pen] 40 units SC QHS #1 pen 12/06/17 Tamsulosin HCl [Flomax] 0.4 mg PO BID@0830,1730 #60 cap 12/06/17 Following Prescrptions Were Given to Patient: Albuterol Inhaler [Ventolin Hfa] 2 puff INHALATION Q4H PRN PRN #1 inhaler PRN Reason: Sob &/Or Wheezing Insulin Glargine [Lantus SoloStar Pen] 40 units SC QHS #1 pen Tamsulosin HCl [Flomax] 0.4 mg PO BID@0830,1730 #60 cap Furosemide 40 mg PO BID #60 tab Insulin Aspart [Novolog Flexpen] 15 units SC TIDCM #1 flexpen Primary Care Physician: Zaida Mcneil MD [Primary Care Provider] - Please follow up with your Primary Care Physician in: In 2 weeks Please Follow Up With: José Hutchinson NP-C When: in 2 week Please Follow Up With: Vj Cabral MD When: in 3 weeks Please Follow Up With: Joao Hayes DO When: in 4 weeks for PFT Please Follow Up With: Norah Adams NP-C Medical Necessity - Tobacco Use Smoking Status: Never smoker Tobacco Use: Non-smoker Meaningful Use Info Meaningful Use Diagnoses (Choose all that apply): None applicable, CHF - CHF TOM/ARB ordered at discharge?: No Reason TOM/ARB not ordered?: Worsening renal dysfunctn, Worsening renal function Documented LVEF (%): 65 - Diastolic dysfunction Code Visit Inpatient E&M: 90894 Disch Hosp
--- NOTE | 2017-12-09 09:34 | CASEMGMT ---
ADDY called Dr Arriola's office and scheduled a follow up appt for patient. His appt is 12-12-17 at 1130am. ADDY called patient's , Ying and let her know. She thanked ADDY. Kiara RUIZ MSW
== END 2017-12-06 17:40 | disposition home health service (06) | DRG 291 ==
LOC: ED 09:39 → PCU 11:24
PROVIDERS: Internal Medicine Nephrology; Nurse Practitioner Family; Admitting Provider Internal Medicine; Emergency Provider Emergency Medicine; Family Provider Internal Medicine; PCP Internal Medicine; Visit Provider Internal Medicine
DX: I13.0 Hypertensive heart and chronic kidney disease with heart failure and stage 1 through stage 4 chronic kidney disease, or unspecified chronic kidney disease (principal); I50.33 Acute on chronic diastolic (congestive) heart failure; J96.01 Acute respiratory failure with hypoxia; N17.9 Acute kidney failure, unspecified; N18.3 Chronic kidney disease, stage 3 (moderate); E66.01 Morbid (severe) obesity due to excess calories; E11.21 Type 2 diabetes mellitus with diabetic nephropathy; I27.20 Pulmonary hypertension, unspecified; E11.40 Type 2 diabetes mellitus with diabetic neuropathy, unspecified; E11.319 Type 2 diabetes mellitus with unspecified diabetic retinopathy without macular edema; E11.22 Type 2 diabetes mellitus with diabetic chronic kidney disease; E87.5 Hyperkalemia; E78.5 Hyperlipidemia, unspecified; H54.62 Unqualified visual loss, left eye, normal vision right eye; I25.10 Atherosclerotic heart disease of native coronary artery without angina pectoris; G47.33 Obstructive sleep apnea (adult) (pediatric); Z91.19 Patient's noncompliance with other medical treatment and regimen; E11.65 Type 2 diabetes mellitus with hyperglycemia; F32.9 Major depressive disorder, single episode, unspecified; F41.9 Anxiety disorder, unspecified; K21.9 Gastro-esophageal reflux disease without esophagitis; E87.6 Hypokalemia; N31.9 Neuromuscular dysfunction of bladder, unspecified; F17.220 Nicotine dependence, chewing tobacco, uncomplicated; Z91.14 Patient's other noncompliance with medication regimen; I25.2 Old myocardial infarction; Z79.4 Long term (current) use of insulin; Z86.14 Personal history of Methicillin resistant Staphylococcus aureus infection; Z68.36 Body mass index [BMI] 36.0-36.9, adult
CPT/HCPCS: 36415; 36600; 71045; 71046; 80048; 80069; 82009; 82803; 82962; 83605; 83735; 83880; 84484; 85025; 85027; 87641; 93005; 93970; 94002; 94003; 94640; 97110; 97116; 97162; 97166; 97530; 97802; 99282; A4216; J1940; J2405

== ENCOUNTER 2017-12-10 17:02 | Inpatient (IN) | payer MEDICARE, SELFPAY ==
[2017-12-10] VITALS (10 sets, daily range): BP systolic 134–151; BP diastolic 74–94; PULSE 64–77; RESP 14–22; TEMP 36.3–36.5; O2SAT 91–96; BMI 38.5; BMI 37.4
--- NOTE | 2017-12-10 17:10 | RAD_ITS ---
STUDY: X-RAY CHEST REASON FOR EXAM: Male, 47 years old. Chest pain TECHNIQUE: Frontal view of the chest COMPARISON: 12/03/2017 FINDINGS: There are moderate congestive changes. This is worse when compared with the prior exam. There are no focal infiltrates. There are small bilateral pleural effusions. The heart is mildly enlarged, but stable in size. The visualized osseous structures are within normal limits. RAD/Chest 1 View (Portable) IMPRESSION: Moderate pulmonary vascular congestion which is worse when compared with the prior exam. Small bilateral pleural effusions. Stable mild cardiomegaly. Electronically Signed: Torres Islas, at 18:02 EDT Tel , Service support ,
--- NOTE | 2017-12-10 17:12 | EKG12_ITS ---
Test Reason : HYPOGLYCEMIA Blood Pressure : / mmHG Vent. Rate : 063 BPM Atrial Rate : 063 BPM P-R Int : 190 ms QRS Dur : 108 ms QT Int : 456 ms P-R-T Axes : 040 049 058 degrees QTc Int : 466 ms Sinus rhythm with occasional Premature ventricular complexes Otherwise normal ECG Confirmed by IBRAHIMA NORTON, MITCHELL ([id number]), editor producer TOBY WATSON ([id number]) on 12/16/2017 3:41:27 PM Referred By: DONATO Confirmed By:MITCHELL ALEXANDRA MD
[2017-12-10] MEDS: Dextrose 50%-Water 25 GM/50 ML DISP.SYRIN IV (17:15)
[2017-12-10 17:26] LABS: Hematocrit 30.9 % (40-54); Hemoglobin 10.3 g/dl (13.0-16.5); Mean Corp Hgb Conc 33.3 g/gl (32-36); Mean Corpuscular Hgb 29.5 pg (27.0-32.0); Mean Corpuscular Volume 88.5 fL (80-94); Mean Platelet Vol. 8.7 fl (6.2-12.0); Platelet Count 267 K/mm3 (150-450); RBC Distribution Width CV 12.4 % (11.6-14.6); RBC Distribution Width SD 38.7 fl (35.1-43.9); Red Blood Count 3.49 M/mm3 (4.6-6.2); White Blood Count 7.5 K/mm3 (4.4-11.0)
[2017-12-10 17:26] LABS: Bedside Glucose 149 mg/dL (70-110)
[2017-12-10 17:27] LABS: POSITIVE COUNT NO; POSITIVE DIFFERENTIAL NO; POSITIVE MORPHOLOGY NO
--- NOTE | 2017-12-10 17:28 | ED.DCSUM_ITS ---
- ER Visit Summary Date of Service: 12/10/17 Chief Complaint: Low blood sugar History of Present Illness: The patient is a [address] Arriola's office for low blood sugar. Patient states that he was at Dr. Arriola's office to have his catheter removed. He was recently admitted to the hospital and discharged last Saturday. He was in the hospital for 9 days for CHF and kidney failure. He has had lower extremity swelling as well as groin swelling. He takes insulin NovoLog 15 units 3 times daily and Lantus 65 units at night. He states he ate a normal diet today. On arrival blood sugar is 34. Physical Examination: Vitals are stable. Patient is afebrile. Alert no acute distress. Pulse ox in the mid 80s on room air. 94% on 4 L. HEENT exam is unremarkable. Neck is supple. Lungs are diminished bilaterally. Heart is regular rate and rhythm. Abdomen is soft nontender nondistended. : Significant edema of the scrotum, no signs of infection. Extremities symmetric edema Skin pallor No focal neurologic deficit. Remainder of exam is unremarkable. Emergency Department Course and Treatment: He was given amp of D50 and orange juice on arrival. EKG is sinus rate is 63 unchanged from previous. Chest x- ray shows moderate pulmonary vascular congestion and bilateral effusions. CBC normal except for hemoglobin 10.3. Chemistries normal except for BUN 64, creatinine 2.72. Troponin negative. Repeat BGT 149. BNP 366.8. Lactic acid is 1.1. He is tolerating p.o. in the emergency department. He is given Lasix IV. Will discuss with hospitalist for admission. Disposition: Admission Impression: Hypoglycemia, CHF with fluid overload, hypoxia This note was generated with [employer] dictation software. It may contain incorrect words, spelling, and punctuation that were not noted in review of the chart prior to signing ED Disposition - Plan for ED Patient: Chief Complaint: Hypoglycemia Referrals: Zaida Mcneil MD [Primary Care Provider] -
[2017-12-10 17:43] LABS: Absolute Neutrophil Count 4.8 X10^3/uL (2.0-7.7); Basophil% 0.3 % (0-1); Eosinophils% 1.1 % (0-5); Lymphocyte % 22.1 % (19-41); Neutrophil % 67.4 % (47-70)
[2017-12-10 17:44] LABS: Absolute Lymphocyte Count 1.57 X10^3/ul (0.83-4.51); Basophil# 0.02 X10^3/uL; Eosinophil# 0.08 X10^3/uL; Lymphocyte # 1.57 X10^3/ul (4.0); Monocyte# 0.64 X10^3/uL
[2017-12-10 18:07] LABS: Anion Gap 7 (5-15); BUN 64 mg/dL (7-18); BUN/Creat Ratio 23.5 RATIO (10-20); Calcium,Total 8.5 mg/dL (8.5-10.1); Chloride 105 mmol/L (98-107); Creatinine, Serum 2.72 mg/dL (0.70-1.30); EST Glomerular Filtration Rate 27 mL/min (>60); Est Glom Filt Rate - Afr Amer 32 mL/min (>60); Estimated Creatinine Clearance 31.78 ml/min; Glucose 40 mg/dL (74-106); Sodium Level 139 mmol/L (136-145)
[2017-12-10 18:09] LABS: Lactic Acid 1.1 mmol/L (0.4-2.0)
[2017-12-10 18:17] LABS: BNP,B-Type NATRIURETIC PEPTIDE 366.8 pg/mL (0-100)
[2017-12-10 18:58] LABS: Bacteria 0 SEEN /hpf (None Seen); Mucous, Urine 0 SEEN /hpf (<or=2+); Squamous Epithelial Cells - UA 0 SEEN /hpf (0-5)
[2017-12-10 19:03] LABS: Color, Urine Yellow (Yellow); Glucose, Dipstick 50 mg/dl (Normal); Ketone-Dipstick Negative (Negative); Leukocyte Esterase-Dipstick 25 /ul (Negative); Nitrite-Dipstick Negative (Negative); Occult Blood-Urine 250 /ul (Negative); Protein-Dipstick 500 mg/dl (Negative); Specific Gravity, Urine 1.015 (1.002-1.030); Urine Bilirubin Dipstick Negative (Negative); Urine Clarity Cloudy (Clear); Urine Urobilinogen Normal (Normal)
[2017-12-10 19:12] LABS: Red Blood Cells-Urine > 100 SEEN /hpf (0-5); White Blood Cells 5-10 SEEN /hpf (0-5)
[2017-12-10 19:13] LABS: Amorphous Sediment 1+
[2017-12-10] MEDS: Furosemide 40 MG/4 ML Vial IV (19:14)
--- NOTE | 2017-12-10 19:23 | PCM.HP.STD ---
Problem List (1) Acute on chronic diastolic CHF (congestive heart failure) Status: Acute (2) Acute hypoxemic respiratory failure Status: Acute (3) Hypoglycemia Status: Acute Comment: resolved in ED (4) Nephrosis Status: Chronic (5) HTN (hypertension) Status: Chronic Qualifiers: Hypertension type: essential hypertension (6) Diabetes mellitus type II, uncontrolled Status: Chronic Qualifiers: Diabetes mellitus mcc insulin use: with mcc use Diabetes mellitus complication status: with kidney complications Diabetes mellitus complication detail: with chronic kidney disease Chronic kidney disease stage: stage 3 (moderate) Qualified Code(s): E11.22 - Type 2 diabetes mellitus with diabetic chronic kidney disease; E11.65 - Type 2 diabetes mellitus with hyperglycemia; N18.3 - Chronic kidney disease, stage 3 (moderate); Z79.4 - half-way (current) use of insulin (7) Anxiety and depression Status: Chronic (8) GERD (gastroesophageal reflux disease) Status: Chronic Qualifiers: (9) CKD (chronic kidney disease) stage 3, GFR 30-59 ml/min Status: Chronic History of Present Illness Date of Admission: 12/10/17 Chief Complaint: leg edema, short of breath, scrotal edema The patient is a 47 year old M past medical history of chronic diastolic CHF, LVH, hypertension, diabetes mellitus 2 on insulin therapy complicated by neuropathy, retinopathy, nephropathy/nephrosis, obesity, hyperlipidemia, history of coronary artery disease, stage III CKD with anemia in CKD, who was recently admitted for CHF exacerbation and urinary retention. He was actually in the office getting Sky catheter removed today; but was noted to have significant scrotal edema and shortness of breath and was therefore referred to emergency department. ED evaluation Afebrile, heart rate 66, blood pressure 135/94, respirations 18, 96% room air Laboratories pertinent for acceptable CBC, hemoglobin 10.3, BUN 64, creatinine 2.7 (over the past month, baselines have been 2.4-3.7), with hyperglycemia to 40, normal lactic acid, troponin, and acceptable BNP at 367. Urinalysis was noncontributory. Chest x-ray revealed stable heart size, mild congestive changes. He received 25 g of IV dextrose with improvement in blood sugar to 49, and Lasix 40 mg IV. On seeing the patient, he has profound lower extremity, scrotal, and lower abdominal wall edema. He will require admission for IV Lasix diuresis. [] Past Medical History Past Medical History (Chronic Problems): Chronic Problems Nephrosis (Chronic) Obesity (BMI 30-39.9) (Chronic) Noncompliance (Chronic) Diabetic neuropathy (Chronic) Diabetic nephropathy (Chronic) Diabetic retinopathy (Chronic) HTN (hypertension) (Chronic) HLD (hyperlipidemia) (Chronic) Blind left eye (Chronic) Diabetes mellitus type II, uncontrolled (Chronic) Anxiety and depression (Chronic) GERD (gastroesophageal reflux disease) (Chronic) Chewing tobacco nicotine dependence (Chronic) CKD (chronic kidney disease) stage 3, GFR 30-59 ml/min (Chronic) Leg edema, right (Chronic) History of acute myocardial infarction (Chronic) Allergies No Known Allergies Allergy (Verified 11/28/17 08:44) Home Medications: Ambulatory Orders Medication Instructions Recorded Gabapentin [Neurontin] 300 mg PO TIDCM 07/15/13 Amlodipine [Norvasc] 5 mg PO DAILY 05/06/17 Bupropion HCl [Wellbutrin Xl] 300 mg PO DAILY 05/06/17 Aspirin 81 mg PO DAILY 11/19/17 Atorvastatin Calcium [Lipitor] 20 mg PO QHS 11/19/17 Atenolol [Tenormin (beta elizabeth)] 100 mg PO DAILY 11/28/17 Insulin Aspart [Novolog Flexpen] See Protocol SC ACHS flexpen 12/05/17 Psyllium [Metamucil] 1 packet PO DAILY PRN PRN packet 12/05/17 Albuterol Inhaler [Ventolin Hfa] 2 puff INHALATION Q4H PRN PRN #1 12/06/17 inhaler Insulin Aspart [Novolog Flexpen] 15 units SC TIDCM #1 flexpen 12/06/17 Furosemide 40 mg PO BID 12/10/17 Insulin Glargine [Lantus SoloStar 65 units SC QHS 12/10/17 Pen] Tamsulosin HCl [Flomax] 0.4 mg PO BID@0830,1730 12/10/17 Surgical History: cholecystectomy, - - Cholecystectomy, left retinal tear repair attempts, right eye laser surgery. Psychiatric History: Anxiety, Depression Smoking Status: Never smoker - *Family History Maternal History Items: Heart Disease Paternal History Items: Cancer - Father w/ Colon CA. Sibling History Items: Diabetes - sister, brother who passed, no kidney disease Review of Systems Respiratory: Reports: Shortness of breath upon exertion Genitourinary: Reports: Retention - scrotal edema Musculoskeletal: Reports: - - edema Psychiatric: Reports: Depression VTE Information - Inpt Only VTE Present on Admission: No VTE Mechan Device Prophylaxis: None - edema VTE Pharm Prophylaxis ordered?: Yes Patient Problems: Active and Suspected Problems Acute on chronic diastolic CHF (congestive heart failure) (Acute) Acute hypoxemic respiratory failure (Acute) Hypoglycemia (Acute) resolved in ED - Physical Exam General: Alert, Oriented x3, Cooperative, No apparent distress HEENT: Atraumatic, PERRLA Oral: Moist Mucosa Neck: JVD, Bilateral Lungs: Clear to auscultation Cardiovascular: Regular rate, Regular Rhythm, Normal S1, Normal S2 Abdomen: Bowel Sounds Present, No Hepato-splenomegaly, Distended, - - flank edema, scrotal edema Extremities: Edema Vital Signs Temp Pulse Resp BP Pulse Ox 97.4 F L 71 16 134/82 H 96 12/10/17 18:58 12/10/17 19:18 12/10/17 19:18 12/10/17 19:18 12/10/17 19:18 Oxygen Flow Rate (L/min) 2 Oxygen Delivery Method Nasal Cannula Weight: 253 lb 4.978 oz Body Mass Index (BMI) 38.5 Finger Stick Blood Glucose 149 Laboratory Tests Past 24 Hrs 12/10/17 12/10/17 12/10/17 17:00 17:00 17:00 WBC 7.5 RBC 3.49 L Hgb 10.3 L Hct 30.9 L MCV 88.5 MCH 29.5 MCHC 33.3 RDW 12.4 RDW Differential 38.7 Plt Count 267 MPV 8.7 Immature Gran % (Auto) 0.100 Neut % (Auto) 67.4 Lymph % (Auto) 22.1 [place] % (Auto) 9.0 Eos % (Auto) 1.1 Baso % (Auto) 0.3 Absolute Neuts (auto) 4.8 Absolute Lymphs (auto) 1.57 Total Counted Not Reportable Sodium 139 Potassium 4.0 Chloride 105 Carbon Dioxide 27.0 Anion Gap 7 BUN 64 H Creatinine 2.72 H Estim Creat Clear Calc 31.78 Est GFR (MDRD) Af Amer 32 L Est GFR (MDRD) Non-Af 27 L BUN/Creatinine Ratio 23.5 H Glucose 40 L* Lactic Acid Calcium 8.5 Troponin I < 0.02 B-Natriuretic Peptide 366.8 H Urine Color Urine Clarity Urine pH Ur Specific [place] Urine Protein Urine Glucose (UA) Urine Ketones Urine Occult Blood Urine Nitrite Urine Bilirubin Urine Urobilinogen Ur Leukocyte Esterase Urine RBC Urine WBC Ur Squamous Epith Cells Amorphous Sediment Urine Bacteria Urine Mucus 12/10/17 12/10/17 17:25 18:45 WBC RBC Hgb Hct MCV MCH MCHC RDW RDW Differential Plt Count MPV Immature Gran % (Auto) Neut % (Auto) Lymph % (Auto) [place] % (Auto) Eos % (Auto) Baso % (Auto) Absolute Neuts (auto) Absolute Lymphs (auto) Total Counted Sodium Potassium Chloride Carbon Dioxide Anion Gap BUN Creatinine Estim Creat Clear Calc Est GFR (MDRD) Af Amer Est GFR (MDRD) Non-Af BUN/Creatinine Ratio Glucose Lactic Acid 1.1 Calcium Troponin I B-Natriuretic Peptide Urine Color Yellow Urine Clarity Cloudy Urine pH 6.0 Ur Specific [place] 1.015 Urine Protein 500 H Urine Glucose (UA) 50 H Urine Ketones Negative Urine Occult Blood 250 H Urine Nitrite Negative Urine Bilirubin Negative Urine Urobilinogen Normal Ur Leukocyte Esterase 25 H Urine RBC > 100 SEEN Urine WBC 5-10 SEEN Ur Squamous Epith Cells 0 SEEN Amorphous Sediment 1+ Urine Bacteria 0 SEEN Urine Mucus 0 SEEN POC Glucose 12/10/17 17:22 POC Glucose 149 H Assessment/Plan Active and Suspected Problems Acute on chronic diastolic CHF (congestive heart failure) (Acute) Acute hypoxemic respiratory failure (Acute) Hypoglycemia (Acute) resolved in ED 87-year-old patient with past medical history of chronic diastolic CHF (echo 11/20/2017 revealed concentric LVH, EF 65%, normal RV size and function, normal atria and tricuspid valve, RVSP not estimated due to technically difficult study), DM 2 on insulin therapy complicated by diabetic nephropathy/nephrosis, neuropathy, retinopathy, CKD 3, urinary retention felt secondary to neurogenic bladder, hypertension, hyperlipidemia, blind left eye, anxiety depression, GERD, and obesity, who presented to emergency department on referral from urology clinic. His catheter was removed today. He was noted to have significant anasarca of the lower extremities, abdomen, and scrotal areas. He was referred for diuretic therapy. 1. Acute on chronic diastolic CHF with anasarca, multifactorial, in the setting of nephrosis, CKD, HTN, LVH, significant scrotal edema 2. Acute hypoxemic respiratory failure secondary to #1 3. Hypoglycemia, resolved in ED s/p 25 gm dextrose IV 4. DVT prophylaxis -- subQ heparin Plan: Admit PCU Telemetry monitoring and serial cardiac biomarkers Sky Medication management -->hold amlodipine in the setting of significant edema, continue atenolol, initiate Lasix drip 10 mg/h Proair prn Serial chemistries, magnesium, BNP in a.m. Oxygen titration policy Accuchecks AC/HS Lantus 40 units at bedtime (hold if HS glucose is less than 140), hold NovoLog 15 units mealtime insulin, NovoLog low dosing scale prandial, and at bedtime check bilateral LE duplex to exclude DVT - routine Chronic issues: Urinary retention -- Sky was removed in urology clinic; will need to replace due to scrotal edema and accurate measurement of I/O; continue Flomax Hyperlipidemia - statin GERD Diabetes mellitus 2 on insulin, complicated by neuropathy, nephropathy, retinopathy, neurogenic bladder -- see above, continue gabapentin CKD3 -creatinines ranging 2.47 - 3.74 over past month, best was creatinine 1.9 in 04/2017. Not hyperkalemic anemia in CKD hx CAD -- continue ASA, betablocker, statin depression - Wellbutrin
--- NOTE | 2017-12-10 19:38 | HP.PCM_ITS ---
Problem List (1) Acute on chronic diastolic CHF (congestive heart failure) Status: Acute (2) Acute hypoxemic respiratory failure Status: Acute (3) Hypoglycemia Status: Acute Comment: resolved in ED (4) Nephrosis Status: Chronic (5) HTN (hypertension) Status: Chronic Qualifiers: Hypertension type: essential hypertension (6) Diabetes mellitus type II, uncontrolled Status: Chronic Qualifiers: Diabetes mellitus usp insulin use: with usp use Diabetes mellitus complication status: with kidney complications Diabetes mellitus complication detail: with chronic kidney disease Chronic kidney disease stage : stage 3 (moderate) Qualified Code(s): E11.22 - Type 2 diabetes mellitus with diabetic chronic kidney disease; E11.65 - Type 2 diabetes mellitus with hyperglycemia; N18.3 - Chronic kidney disease, stage 3 (moderate); Z79.4 - long term care pharmacist (current) use of insulin (7) Anxiety and depression Status: Chronic (8) GERD (gastroesophageal reflux disease) Status: Chronic Qualifiers: (9) CKD (chronic kidney disease) stage 3, GFR 30-59 ml/min Status: Chronic History of Present Illness Date of Admission: 12/10/17 Chief Complaint: leg edema, short of breath, scrotal edema The patient is a 47 year old M past medical history of chronic diastolic CHF, LVH, hypertension, diabetes mellitus 2 on insulin therapy complicated by neuropathy, retinopathy, nephropathy/nephrosis, obesity, hyperlipidemia, history of coronary artery disease, stage III CKD with anemia in CKD, who was recently admitted for CHF exacerbation and urinary retention. He was actually in the office getting Sky catheter removed today; but was noted to have significant scrotal edema and shortness of breath and was therefore referred to emergency department. ED evaluation Afebrile, heart rate 66, blood pressure 135/94, respirations 18, 96% room air Laboratories pertinent for acceptable CBC, hemoglobin 10.3, BUN 64, creatinine 2.7 (over the past month, baselines have been 2.4-3.7), with hyperglycemia to 40 , normal lactic acid, troponin, and acceptable BNP at 367. Urinalysis was noncontributory. Chest x-ray revealed stable heart size, mild congestive changes. He received 25 g of IV dextrose with improvement in blood sugar to 49, and Lasix 40 mg IV. On seeing the patient, he has profound lower extremity, scrotal, and lower abdominal wall edema. He will require admission for IV Lasix diuresis. [] Past Medical History Past Medical History (Chronic Problems): Chronic Problems Nephrosis (Chronic) Obesity (BMI 30-39.9) (Chronic) Noncompliance (Chronic) Diabetic neuropathy (Chronic) Diabetic nephropathy (Chronic) Diabetic retinopathy (Chronic) HTN (hypertension) (Chronic) HLD (hyperlipidemia) (Chronic) Blind left eye (Chronic) Diabetes mellitus type II, uncontrolled (Chronic) Anxiety and depression (Chronic) GERD (gastroesophageal reflux disease) (Chronic) Chewing tobacco nicotine dependence (Chronic) CKD (chronic kidney disease) stage 3, GFR 30-59 ml/min (Chronic) Leg edema, right (Chronic) History of acute myocardial infarction (Chronic) Allergies No Known Allergies Allergy (Verified 11/28/17 08:44) Home Medications: Ambulatory Orders Medication Instructions Recorded Gabapentin [Neurontin] 300 mg PO TIDCM 07/15/13 Amlodipine [Norvasc] 5 mg PO DAILY 05/06/17 Bupropion HCl [Wellbutrin Xl] 300 mg PO DAILY 05/06/17 Aspirin 81 mg PO DAILY 11/19/17 Atorvastatin Calcium [Lipitor] 20 mg PO QHS 11/19/17 Atenolol [Tenormin (beta elizabeth)] 100 mg PO DAILY 11/28/17 Insulin Aspart [Novolog Flexpen] See Protocol SC ACHS flexpen 12/05/17 Psyllium [Metamucil] 1 packet PO DAILY PRN PRN packet 12/05/17 Albuterol Inhaler [Ventolin Hfa] 2 puff INHALATION Q4H PRN PRN #1 12/06/17 inhaler Insulin Aspart [Novolog Flexpen] 15 units SC TIDCM #1 flexpen 12/06/17 Furosemide 40 mg PO BID 12/10/17 Insulin Glargine [Lantus SoloStar 65 units SC QHS 12/10/17 Pen] Tamsulosin HCl [Flomax] 0.4 mg PO BID@0830,1730 12/10/17 Surgical History: cholecystectomy, - - Cholecystectomy, left retinal tear repair attempts, right eye laser surgery. Psychiatric History: Anxiety, Depression Smoking Status: Never smoker - *Family History Maternal History Items: Heart Disease Paternal History Items: Cancer - Father w/ Colon CA. Sibling History Items: Diabetes - sister, brother who passed, no kidney disease Review of Systems Respiratory: Reports: Shortness of breath upon exertion Genitourinary: Reports: Retention - scrotal edema Musculoskeletal: Reports: - - edema Psychiatric: Reports: Depression VTE Information - Inpt Only VTE Present on Admission: No VTE Mechan Device Prophylaxis: None - edema VTE Pharm Prophylaxis ordered?: Yes Patient Problems: Active and Suspected Problems Acute on chronic diastolic CHF (congestive heart failure) (Acute) Acute hypoxemic respiratory failure (Acute) Hypoglycemia (Acute) resolved in ED - Physical Exam General: Alert, Oriented x3, Cooperative, No apparent distress HEENT: Atraumatic, PERRLA Oral: Moist Mucosa Neck: JVD, Bilateral Lungs: Clear to auscultation Cardiovascular: Regular rate, Regular Rhythm, Normal S1, Normal S2 Abdomen: Bowel Sounds Present, No Hepato-splenomegaly, Distended, - - flank edema, scrotal edema Extremities: Edema Vital Signs Temp Pulse Resp BP Pulse Ox 97.4 F L 71 16 134/82 H 96 12/10/17 18:58 12/10/17 19:18 12/10/17 19:18 12/10/17 19:18 12/10/17 19:18 Oxygen Flow Rate (L/min) 2 Oxygen Delivery Method Nasal Cannula Weight: 253 lb 4.978 oz Body Mass Index (BMI) 38.5 Finger Stick Blood Glucose 149 Laboratory Tests Past 24 Hrs 12/10/17 12/10/17 12/10/17 17:00 17:00 17:00 WBC 7.5 RBC 3.49 L Hgb 10.3 L Hct 30.9 L MCV 88.5 MCH 29.5 MCHC 33.3 RDW 12.4 RDW Differential 38.7 Plt Count 267 MPV 8.7 Immature Gran % (Auto) 0.100 Neut % (Auto) 67.4 Lymph % (Auto) 22.1 [place] % (Auto) 9.0 Eos % (Auto) 1.1 Baso % (Auto) 0.3 Absolute Neuts (auto) 4.8 Absolute Lymphs (auto) 1.57 Total Counted Not Reportable Sodium 139 Potassium 4.0 Chloride 105 Carbon Dioxide 27.0 Anion Gap 7 BUN 64 H Creatinine 2.72 H Estim Creat Clear Calc 31.78 Est GFR (MDRD) Af Amer 32 L Est GFR (MDRD) Non-Af 27 L BUN/Creatinine Ratio 23.5 H Glucose 40 L* Lactic Acid Calcium 8.5 Troponin I < 0.02 B-Natriuretic Peptide 366.8 H Urine Color Urine Clarity Urine pH Ur Specific [place] Urine Protein Urine Glucose (UA) Urine Ketones Urine Occult Blood Urine Nitrite Urine Bilirubin Urine Urobilinogen Ur Leukocyte Esterase Urine RBC Urine WBC Ur Squamous Epith Cells Amorphous Sediment Urine Bacteria Urine Mucus 12/10/17 12/10/17 17:25 18:45 WBC RBC Hgb Hct MCV MCH MCHC RDW RDW Differential Plt Count MPV Immature Gran % (Auto) Neut % (Auto) Lymph % (Auto) [place] % (Auto) Eos % (Auto) Baso % (Auto) Absolute Neuts (auto) Absolute Lymphs (auto) Total Counted Sodium Potassium Chloride Carbon Dioxide Anion Gap BUN Creatinine Estim Creat Clear Calc Est GFR (MDRD) Af Amer Est GFR (MDRD) Non-Af BUN/Creatinine Ratio Glucose Lactic Acid 1.1 Calcium Troponin I B-Natriuretic Peptide Urine Color Yellow Urine Clarity Cloudy Urine pH 6.0 Ur Specific [place] 1.015 Urine Protein 500 H Urine Glucose (UA) 50 H Urine Ketones Negative Urine Occult Blood 250 H Urine Nitrite Negative Urine Bilirubin Negative Urine Urobilinogen Normal Ur Leukocyte Esterase 25 H Urine RBC > 100 SEEN Urine WBC 5-10 SEEN Ur Squamous Epith Cells 0 SEEN Amorphous Sediment 1+ Urine Bacteria 0 SEEN Urine Mucus 0 SEEN POC Glucose 12/10/17 17:22 POC Glucose 149 H Assessment/Plan Active and Suspected Problems Acute on chronic diastolic CHF (congestive heart failure) (Acute) Acute hypoxemic respiratory failure (Acute) Hypoglycemia (Acute) resolved in ED 87-year-old patient with past medical history of chronic diastolic CHF (echo revealed concentric LVH, EF 65%, normal RV size and function, normal atria and tricuspid valve, RVSP not estimated due to technically difficult study ), DM 2 on insulin therapy complicated by diabetic nephropathy/nephrosis, neuropathy, retinopathy, CKD 3, urinary retention felt secondary to neurogenic bladder, hypertension, hyperlipidemia, blind left eye, anxiety depression, GERD , and obesity, who presented to emergency department on referral from urology clinic. His catheter was removed today. He was noted to have significant anasarca of the lower extremities, abdomen, and scrotal areas. He was referred for diuretic therapy. 1. Acute on chronic diastolic CHF with anasarca, multifactorial, in the setting of nephrosis, CKD, HTN, LVH, significant scrotal edema 2. Acute hypoxemic respiratory failure secondary to #1 3. Hypoglycemia, resolved in ED s/p 25 gm dextrose IV 4. DVT prophylaxis -- subQ heparin Plan: Admit PCU Telemetry monitoring and serial cardiac biomarkers Sky Medication management -->hold amlodipine in the setting of significant edema, continue atenolol, initiate Lasix drip 10 mg/h Proair prn Serial chemistries, magnesium, BNP in a.m. Oxygen titration policy Accuchecks AC/HS Lantus 40 units at bedtime (hold if HS glucose is less than 140), hold NovoLog 15 units mealtime insulin, NovoLog low dosing scale prandial, and at bedtime check bilateral LE duplex to exclude DVT - routine Chronic issues: Urinary retention -- Sky was removed in urology clinic; will need to replace due to scrotal edema and accurate measurement of I/O; continue Flomax Hyperlipidemia - statin GERD Diabetes mellitus 2 on insulin, complicated by neuropathy, nephropathy, retinopathy, neurogenic bladder -- see above, continue gabapentin CKD3 -creatinines ranging 2.47 - 3.74 over past month, best was creatinine 1.9 in 04/2017. Not hyperkalemic anemia in CKD hx CAD -- continue ASA, betablocker, statin depression - Wellbutrin
[2017-12-10 20:21] LABS: Bedside Glucose 172 mg/dL (70-110)
[2017-12-10] MEDS: Furosemide 500 MG in Empty Viaflex 50 mL 1 EACH CONT INF (20:58)
[2017-12-10] MEDS: Atorvastatin Calcium 20 MG Tablet PO (21:00)
[2017-12-10] MEDS: 0.9% NaCl Peripheral Flush Adult/Peds IV (21:08)
[2017-12-10 21:20] LABS: Bedside Glucose 197 mg/dL (70-110)
[2017-12-11] VITALS (12 sets, daily range): BP systolic 147–165; BP diastolic 73–84; PULSE 74–84; RESP 16–18; TEMP 36.4–36.8; O2SAT 92–96
[2017-12-11 01:41] LABS: Bedside Glucose 197 mg/dL (70-110)
[2017-12-11 06:37] LABS: Absolute Lymphocyte Count 1.04 X10^3/ul (0.83-4.51); Absolute Neutrophil Count 5.7 X10^3/uL (2.0-7.7); Basophil# 0.01 X10^3/uL; Basophil% 0.1 % (0-1); Eosinophil# 0.07 X10^3/uL; Eosinophils% 0.9 % (0-5); Hematocrit 29.9 % (40-54); Hemoglobin 10.2 g/dl (13.0-16.5); Lymphocyte # 1.04 X10^3/ul (4.0); Lymphocyte % 14.1 % (19-41); Mean Corp Hgb Conc 34.1 g/gl (32-36); Mean Corpuscular Hgb 30.2 pg (27.0-32.0); Mean Corpuscular Volume 88.5 fL (80-94); Mean Platelet Vol. 8.6 fl (6.2-12.0); Monocyte# 0.57 X10^3/uL; Monocyte% 7.7 % (0-10); Neutrophil # 5.67 X10^3/uL (2.7-7.7); Neutrophil % 76.9 % (47-70); Platelet Count 262 K/mm3 (150-450); RBC Distribution Width CV 12.4 % (11.6-14.6); RBC Distribution Width SD 38.1 fl (35.1-43.9); Red Blood Count 3.38 M/mm3 (4.6-6.2); White Blood Count 7.4 K/mm3 (4.4-11.0)
[2017-12-11 06:53] LABS: POSITIVE COUNT NO; POSITIVE DIFFERENTIAL NO; POSITIVE MORPHOLOGY NO
[2017-12-11 07:00] LABS: Anion Gap 9 (5-15); BUN 61 mg/dL (7-18); Calcium,Total 8.3 mg/dL (8.5-10.1); Chloride 103 mmol/L (98-107); Cholesterol 105 mg/dL (200); Creatinine, Serum 2.65 mg/dL (0.70-1.30); EST Glomerular Filtration Rate 27 mL/min (>60); Est Glom Filt Rate - Afr Amer 33 mL/min (>60); Estimated Creatinine Clearance 32.62 ml/min; Glucose 151 mg/dL (74-106); High Density Lipoprotein 42 mg/dL; Magnesium 2.1 mg/dL (1.6-2.6); Sodium Level 141 mmol/L (136-145); Thyroid Stim Hormone (TSH) 2.53 uIU/mL (0.358-3.74); Triglycerides 68 mg/dL; Very Low Density Lipoprotein 14 mg/dL (5-40)
[2017-12-11 07:00] LABS: Bedside Glucose 162 mg/dL (70-110)
--- NOTE | 2017-12-11 07:00 | VDLE_ITS ---
Reason For Study: SWELLING RIGHT LEFT GSV is normal. GSV is normal. CFV is compressible, spontaneous, phasic, CFV is compressible, spontaneous, phasic, competent and demonstrates normal competent, and demonstrates normal augmentation. augmentation. FV is compressible, spontaneous, phasic, FV is compressible, spontaneous, phasic, competent and demonstrates normal competent and demonstrates normal augmentation. augmentation. POP V is compressible, spontaneous, phasic, POP V is compressible, spontaneous, phasic, competent and demonstrates normal competent and demonstrates normal augmentation. augmentation. T/P Trunk is compressible. T/P Trunk is compressible. PTV is compressible. PTV is compressible. RT PerV is compressible. LT PerV is compressible. Procedure Exam performed portable in patient room. A preliminary report was called and/or faxed to [facility]. Interpretation Summary Deep veins of the lower extremities are bilaterally patent and compressible segmentally. There is no evidence of deep vein thrombosis on either side. Valvular competence appears intact within the proximal deep venous systems bilaterally. The greater saphenous veins appear bilaterally patent and compressible segmentally. Ordering Physician: Kayla Mcmanus Referring Physician: ANDERSON GASTON Performed By: Meri Murray, BO, RVT
[2017-12-11] MEDS: Gabapentin 300 MG Capsule PO ×3 (09:04→16:17)
[2017-12-11] MEDS: Tamsulosin HCl 0.4 MG Capsule PO ×2 (09:04→16:16)
[2017-12-11] MEDS: Aspirin 81 MG TAB.CHEW PO (09:05)
[2017-12-11] MEDS: Atenolol 100 MG Tablet PO (09:06)
[2017-12-11] MEDS: buPROPion (XL) 300 MG TABLET.XL PO (09:06)
[2017-12-11 11:21] LABS: Bedside Glucose 193 mg/dL (70-110)
--- NOTE | 2017-12-11 14:45 | PN_ITS ---
Patient Problems: Active and Suspected Problems Acute on chronic diastolic CHF (congestive heart failure) (Acute) Acute hypoxemic respiratory failure (Acute) Hypoglycemia (Acute) resolved in ED Subjective: Patient is a 47-year-old male with a past medical history of diastolic congestive heart failure, left ventricular hypertrophy, diabetes mellitus type 2 , diabetic nephropathy, diabetic neuropathy, diabetic retinopathy, obesity, noncompliance with diet and medications, hypertension, hyperlipidemia, anxiety/ depression, GERD, Bacot dependence (chewing tobacco), chronic renal failure stage III and urine retention who was sent to the ED by his doctor for scrotal edema and SOB. At presentation to the emergency room he was afebrile with a heart rate of 66, blood pressure of 135/94, respiratory rate 18 and he was 96% saturated on room air. Creatinine was 2.7 which is within the range of creatinines over the past month. BNP was 366.8, lactic acid was 1.1, glucose was 40 and troponin was less than 0.02. UA had 5-10 white blood cells and greater than 100 red blood cells with no bacteria seen. Ejection fraction on a recent echocardiogram was 65% and the PA systolic could not be estimated secondary to technically difficult study. He was admitted to PCU with a dx of Acute on chronic diastolic CHF and started on a continuous Lasix infusion. Amlodipine was discontinued due to the side effect of peripheral edema. Fluid balance since admission is -3551. Blood pressures are mildly elevated. All lab was personally reviewed. Creatinine today is 2.65 which is down from 2.72 at admission. Blood sugars today have ranged from 149 to 209. Electrolytes are within normal limits. - Physical Exam General: Alert, Cooperative, No apparent distress HEENT: Atraumatic, PERRLA, Normocephalic Oral: Moist Mucosa Neck: No Nuchal Rigidity, Trachea Midline Lungs: Rales - in the bases...minimal Cardiovascular: No Gallop Abdomen: Bowel Sounds Present, Soft, Non Tender, Non-Distended, - - there is edema of the scrotum but, he tells me that it is smaller than when he left the hospital last week Extremities: Edema Skin: No rashes, No breakdown Vital Signs Temp Pulse Resp BP Pulse Ox 98.3 F 76 16 165/73 H 96 12/11/17 09:30 12/11/17 11:52 12/11/17 09:30 12/11/17 09:30 12/11/17 09:30 Oxygen Flow Rate (L/min) 3 Oxygen Delivery Method Nasal Cannula Weight: 240 lb 1.334 oz Body Mass Index (BMI) 37.4 Intake and Output for Last 24 Hours 12/09/17 12/10/17 12/11/17 23:59 23:59 23:59 Intake Total 122 / 122 473.6 / 473.6 Output Total 1550 / 1550 4025 / 4025 Balance -1428 / -1428 -3551.4 / -3551.4 Laboratory Tests Past 24 Hrs 12/10/17 12/11/17 12/11/17 21:11 06:10 06:10 WBC 7.4 RBC 3.38 L Hgb 10.2 L Hct 29.9 L MCV 88.5 MCH 30.2 MCHC 34.1 RDW 12.4 RDW Differential 38.1 Plt Count 262 MPV 8.6 Immature Gran % (Auto) 0.300 Neut % (Auto) 76.9 H Lymph % (Auto) 14.1 L Hickman % (Auto) 7.7 Eos % (Auto) 0.9 Baso % (Auto) 0.1 Absolute Neuts (auto) 5.7 Absolute Lymphs (auto) 1.04 Total Counted Not Reportable Sodium 141 Potassium 4.0 Chloride 103 Carbon Dioxide 29.0 Anion Gap 9 BUN 61 H Creatinine 2.65 H Estim Creat Clear Calc 32.62 Est GFR (MDRD) Af Amer 33 L Est GFR (MDRD) Non-Af 27 L BUN/Creatinine Ratio 23.0 H Glucose 151 H Calcium 8.3 L Magnesium 2.1 Troponin I < 0.02 B-Natriuretic Peptide Triglycerides 68 Cholesterol 105 LDL Cholesterol 49 VLDL Cholesterol 14 HDL Cholesterol 42 TSH 2.53 12/11/17 06:10 WBC RBC Hgb Hct MCV MCH MCHC RDW RDW Differential Plt Count MPV Immature Gran % (Auto) Neut % (Auto) Lymph % (Auto) Hickman % (Auto) Eos % (Auto) Baso % (Auto) Absolute Neuts (auto) Absolute Lymphs (auto) Total Counted Sodium Potassium Chloride Carbon Dioxide Anion Gap BUN Creatinine Estim Creat Clear Calc Est GFR (MDRD) Af Amer Est GFR (MDRD) Non-Af BUN/Creatinine Ratio Glucose Calcium Magnesium Troponin I B-Natriuretic Peptide 408.0 H Triglycerides Cholesterol LDL Cholesterol VLDL Cholesterol HDL Cholesterol TSH POC Glucose 12/11/17 12/11/17 12/11/17 11:15 06:43 01:37 POC Glucose 193 H 162 H 197 H 12/10/17 12/10/17 21:04 20:04 POC Glucose 197 H 172 H Medical Necessity - Tobacco Use Smoking Status: Never smoker Assessment/Plan Active and Suspected Problems Acute on chronic diastolic CHF (congestive heart failure) (Acute) Acute hypoxemic respiratory failure (Acute) Hypoglycemia (Acute) resolved in ED Impressions 1. Acute on chronic diastolic CHF - primarily R heart failure 2. acute respiratory failure ruled out - has not required high flow oxygen and the pulse ox on RA at admission was 91% 3. DM II - uncontrolled HGBA1C on 11/24/17 was 10.5% 4. Stage IV chronic renal failure with nephrotic syndrome 5. HTN - not adequately controlled 6. GERD 7. LVH 8. Diabetic neuropathy 9. Diabetic retinopathy with blindness in the left eye 10. Anxiety/depression 11. Noncompliance with diet and possibly medication 12. Dyslipidemia-controlled 13. BPH 14. Anemia of chronic disease 15. Hypoglycemia this AM continue to diurese adjust insulin education provided on importance of salt control and leg compression I get the impression that he really does not get the seriousness of his condition and that he will soon be on dialysis....? level of education and IQ? Recheck the lab in the AM Code Visit Inpatient E&M: 49489 Subs Hosp L2
--- NOTE | 2017-12-11 15:01 | CASEMGMT ---
READMISSION ASSESSMENT: Readmission Date: 12/11/17 Physician: Dr. Salomon Initial Admission Date: 11/28/17 Discharge Date: 12/06/17 Physician: Dr. Fang PCP: Dr. Mcneil-pt to see José Hutchinson PIPE WRAPPING MACHINE OPERATOR-C 2 weeks from discharge Specialists: LETTY Adams-New patient Appt scheduled for 12/17/17 at 1030 Zeinab, Urology-12/10/17-for wilhelm catheter removal and sent to ED from office for scrotal swelling Jenna Bedoya PIPE WRAPPING MACHINE OPERATOR-C, Pulmonary Medicine [facility]-Appt scheduled for 12/25/17at 0915 Hospitalizations in the last 6 months: 3 PMHX: CHF, COPD, HTN, Hypokalemia, Diabetes Type II, Diabetic neuropathy, nephropathy, retinopathy, HLD, Blind left eye, Obesity, Anxiety, Depression, GERD, CKD Stg III, Chronic ulcer RLE, Cellulitis RLE, ME Initial Dx: CHF Readmission Dx: CHF Insurance: [id number] Prescription Coverage: Yes Readmission summary: Pt presented to [facility] ED 12/10/[address] Arriola's office for lower extremity and scrotal swelling and low blood sugar(34) with diaphoresis and decreased responsiveness. Creatinine-2.65, baseline for pt. [id number] Plan: Admit PCU Telemetry monitoring and serial cardiac biomarkers Wilhelm Medication management -->hold amlodipine in the setting of significant edema, continue atenolol, Lasix drip to be initiated at 10 mg/h Proair prn Serial chemistries, magnesium, BNP in a.m. Oxygen titration policy Accuchecks AC/HS Lantus 40 units at bedtime (hold if HS glucose is less than 140), hold NovoLog 15 units mealtime insulin, NovoLog low dosing scale prandial, and at bedtime check bilateral LE duplex to exclude DVT The patient does have a spouse, had been independent with ADLs and IADLs and does not require DME for mobility. Per documentation, patient reported he had adequate supply of diabetes testing supplies, and understood how to monitor BGL. During last visit, pt was to be discharged to SNF for skilled therapy but prior to precert being obtained, pt was walking better and doing better with therapy and pt went home with [facility] set up. ANDER CM will f/u with pt 12/12/17 after PT/OT sees and to work on discharge planning for pt at that time. Scott WORTHINGTON CM
--- NOTE | 2017-12-11 16:38 | CHAPLAIN ---
Type of Pastoral Visit _x__ Initial Visit ___ Follow-up Visit ___ On-call Visit ___ General Patient Visit ___ Spiritual Assessment ___ Family Conference ___ Bereavement ___ Rapid Response ___ Code Blue ___ Other (describe below) Pastoral Care Referral From _x__ Patient ___ Family ___ Nurse ___ Physician ___ Retail Route Supervisor ___ Education Sales Consultant ___ Other (describe below) Sacrament/Intervention _x__ Active listening ___ Anointing ___ Synagogue ___ Bereavement ___ Communion _x__ Danica exploration ___ _x__ Life review _x_ Prayer ___ Reconciliation ___ Sacrament of Sick _x__ Supportive presence ___ Wedding ___ Other (describe below) Pastoral Comments patient begins by saying he has had 3 admissions since beginning of year; pt admits some fear about possible and wants to do better with his life; pt describes some experiences in this process that could be considered 'near experiences' or of 'supernatural visions'; pt is not connected to any mandaen danica group but says that he prays; pt welcomes prayer and opportunity to talk about his experiences
[2017-12-11 17:11] LABS: Bedside Glucose 212 mg/dL (70-110)
[2017-12-11 17:11] LABS: Bedside Glucose 34 mg/dL (70-110)
[2017-12-11] MEDS: Atorvastatin Calcium 20 MG Tablet PO (22:47)
[2017-12-11 23:01] LABS: Bedside Glucose 272 mg/dL (70-110)
[2017-12-12] VITALS (15 sets, daily range): BP systolic 142–156; BP diastolic 73–86; PULSE 73–85; RESP 16–18; TEMP 36.6–37.1; O2SAT 92–94
[2017-12-12] MEDS: Acetaminophen 325 MG Tablet 650 MG PO (05:15)
[2017-12-12 06:42] LABS: BUN 58 mg/dL (7-18); Creatinine, Serum 2.83 mg/dL (0.70-1.30); Estimated Creatinine Clearance 30.55 ml/min; Glucose 105 mg/dL (74-106)
[2017-12-12 06:43] LABS: Anion Gap 8 (5-15); BUN/Creat Ratio 20.5 RATIO (10-20); Calcium,Total 8.3 mg/dL (8.5-10.1); Chloride 102 mmol/L (98-107); EST Glomerular Filtration Rate 25 mL/min (>60); Est Glom Filt Rate - Afr Amer 31 mL/min (>60); Potassium 3.8 mmol/L (3.5-5.1); Sodium Level 142 mmol/L (136-145)
[2017-12-12 07:06] LABS: Bedside Glucose 71 mg/dL (70-110)
[2017-12-12] MEDS: Tamsulosin HCl 0.4 MG Capsule PO ×2 (08:02→17:05)
[2017-12-12] MEDS: Gabapentin 300 MG Capsule PO ×3 (08:02→17:05)
[2017-12-12] MEDS: Aspirin 81 MG TAB.CHEW PO (08:02)
[2017-12-12 08:30] LABS: Bedside Glucose 45 mg/dL (70-110)
[2017-12-12] MEDS: Furosemide 500 MG in Empty Viaflex 50 mL 1 EACH CONT INF (08:36)
[2017-12-12] MEDS: Atenolol 100 MG Tablet PO (10:09)
[2017-12-12] MEDS: buPROPion (XL) 300 MG TABLET.XL PO (10:09)
[2017-12-12 12:06] LABS: Bedside Glucose 229 mg/dL (70-110)
--- NOTE | 2017-12-12 14:03 | CASEMGMT ---
This RN CM to room to speak with pt in regards to discharge planning. Pt states plan at this time is to go home with resumption of HHC. Pt states no further questions/concerns at this time. Advised pt to ask for CM if any further questions/concerns/needs arise, voices understanding. CM to follow for any further needs. SStaten ANDER CM
[2017-12-12 16:16] LABS: Bedside Glucose 223 mg/dL (70-110)
--- NOTE | 2017-12-12 20:21 | PCM.PROGNOTE ---
Patient Problems: Active and Suspected Problems Acute on chronic diastolic CHF (congestive heart failure) (Acute) Acute hypoxemic respiratory failure (Acute) Hypoglycemia (Acute) resolved in ED Subjective: Afebrile. Blood pressures are not adequately controlled and the systolic is elevated. Heart rate has ranged from 64-85 since admission. He denies SOB or lightheadedness Mood balance since admission is -10,892. All lab was personally reviewed. Potassium is 3.8. BUN is 58 with a creatinine of 2.83 which is up from 2.72 at admission. Phosphorus and magnesium are within normal limits. He has no complaints Venous ultrasounds of the lower extremities are negative for DVT. Objective: - Physical Exam General: Alert, Cooperative, No apparent distress, resting in bed HEENT: Atraumatic, PERRLA, Normocephalic Oral: Moist Mucosa Neck: No Nuchal Rigidity, Trachea Midline Lungs: no rales today and no wheezing Cardiovascular: No Gallop, RRR, no MM, no rub, normal S1 and S2 Abdomen: Bowel Sounds Present, Soft, Non Tender, Non-Distended, there is pitting in the flanks still - - there is persistent edema of the scrotum and the Legs - 4+ still Extremities: Edema - 4+ Skin: he has a moist red rash in the groin that has an odor and appears to be consistent with tinea cruris Normal affect, pleasant - Physical Exam Vital Signs Temp Pulse Resp BP Pulse Ox 98.1 F 85 18 156/86 H 94 12/12/17 15:30 12/12/17 19:44 12/12/17 15:30 12/12/17 15:30 12/12/17 15:30 Oxygen Flow Rate (L/min) 3 Oxygen Delivery Method Room Air Weight: 232 lb 5.875 oz Body Mass Index (BMI) 37.4 Intake and Output for Last 24 Hours 12/10/17 12/11/17 12/12/17 23:59 23:59 23:59 Intake Total 122 / 122 1425.8 / 1425.8 935.2 / 935.2 Output Total 1550 / 1550 7025 / 7025 4800 / 4800 Balance -1428 / -1428 -5599.2 / -5599.2 -3864.8 / -3864.8 Laboratory Tests Past 24 Hrs 12/12/17 06:00 Sodium 142 Potassium 3.8 Chloride 102 Carbon Dioxide 32.0 Anion Gap 8 BUN 58 H Creatinine 2.83 H Estim Creat Clear Calc 30.55 Est GFR (MDRD) Af Amer 31 L Est GFR (MDRD) Non-Af 25 L BUN/Creatinine Ratio 20.5 H Glucose 105 Calcium 8.3 L Phosphorus 4.0 Magnesium 2.0 POC Glucose 12/12/17 12/12/17 12/12/17 16:09 11:57 07:53 POC Glucose 223 H 229 H 45 L 12/12/17 12/11/17 06:58 22:45 POC Glucose 71 272 H Medical Necessity - Tobacco Use Smoking Status: Never smoker Assessment/Plan Active and Suspected Problems Acute on chronic diastolic CHF (congestive heart failure) (Acute) Acute hypoxemic respiratory failure (Acute) Hypoglycemia (Acute) resolved in ED Impressions 1. Acute on chronic diastolic CHF - primarily R heart failure 2. acute respiratory failure ruled out - has not required high flow oxygen and the pulse ox on RA at admission was 91% 3. DM II - uncontrolled HGBA1C on 11/24/17 was 10.5% 4. Stage IV chronic renal failure with nephrotic syndrome 5. HTN - not adequately controlled 6. GERD 7. LVH 8. Diabetic neuropathy 9. Diabetic retinopathy with blindness in the left eye 10. Anxiety/depression 11. Noncompliance with diet and possibly medication 12. Dyslipidemia-controlled 13. BPH 14. Anemia of chronic disease 15. Hypoglycemia in the AM for the past 2 days continue to dimarcellee discussed the importance of salt restriction, fluid restriction, leg elevation and compression stockings in controlling edema in patient's with nephrotic S. He now has stage 4 CRF and should be getting a fistula.......likely not far from needing dialysis. He saw Dr. Montiel at the last admission and he should be following up with her going forward. Adjust the insulin...decrease the HS Levemir and do not cover the HS BS. schedule 2 units Novolog with each meal 2 GM sodium restriction, carb control, 60 GM protein repeat the lab in the AM voiding trial prior to DC Code Visit Inpatient E&M: 03909 Subs Hosp L2
[2017-12-12 20:51] LABS: Bedside Glucose 358 mg/dL (70-110)
[2017-12-12] MEDS: Atorvastatin Calcium 20 MG Tablet PO (21:28)
[2017-12-13] VITALS (14 sets, daily range): BP systolic 123–168; BP diastolic 65–79; PULSE 70–85; RESP 16–18; TEMP 36.9–37.3; O2SAT 93–97
[2017-12-13] MEDS: Acetaminophen 325 MG Tablet 650 MG PO (01:31)
[2017-12-13 06:47] LABS: Hematocrit 31.7 % (40-54); Hemoglobin 10.5 g/dl (13.0-16.5); Mean Corp Hgb Conc 33.1 g/gl (32-36); Mean Corpuscular Hgb 28.8 pg (27.0-32.0); Mean Corpuscular Volume 87.1 fL (80-94); Mean Platelet Vol. 8.8 fl (6.2-12.0); Platelet Count 248 K/mm3 (150-450); RBC Distribution Width CV 12.5 % (11.6-14.6); RBC Distribution Width SD 38.1 fl (35.1-43.9); Red Blood Count 3.64 M/mm3 (4.6-6.2); White Blood Count 7.1 K/mm3 (4.4-11.0)
[2017-12-13 06:48] LABS: Scan Indicated on CBC? Y/N NO
[2017-12-13 06:51] LABS: Bedside Glucose 193 mg/dL (70-110)
[2017-12-13 07:02] LABS: Anion Gap 7 (5-15); BUN 55 mg/dL (7-18); BUN/Creat Ratio 19.2 RATIO (10-20); Calcium,Total 8.4 mg/dL (8.5-10.1); Chloride 101 mmol/L (98-107); Creatinine, Serum 2.87 mg/dL (0.70-1.30); EST Glomerular Filtration Rate 25 mL/min (>60); Est Glom Filt Rate - Afr Amer 30 mL/min (>60); Estimated Creatinine Clearance 30.12 ml/min; Glucose 193 mg/dL (74-106); Phosphorus 4.4 mg/dL (2.5-4.9); Sodium Level 141 mmol/L (136-145)
[2017-12-13] MEDS: Tamsulosin HCl 0.4 MG Capsule PO ×2 (08:07→16:46)
[2017-12-13] MEDS: Gabapentin 300 MG Capsule PO ×3 (08:07→16:46)
[2017-12-13] MEDS: Aspirin 81 MG TAB.CHEW PO (08:07)
[2017-12-13] MEDS: buPROPion (XL) 300 MG TABLET.XL PO (08:09)
[2017-12-13] MEDS: Atenolol 100 MG Tablet PO (08:09)
--- NOTE | 2017-12-13 09:35 | CCN.REFER ---
AGREES TO CCN. CONSENT SIGNED. WILL FOLLOW UP IN HOME ONCE DISCHARGED.
[2017-12-13 10:56] LABS: Bedside Glucose 284 mg/dL (70-110)
--- NOTE | 2017-12-13 11:01 | CASEMGMT ---
This ANDER GUERRA spoke with Miguel from [facility] previously and she agreed to see pt this am for possible entrance into program. Received message from Miguel this am, stating that she spoke with pt and he agreed to CCN at this time. [facility] resumption of care order placed in [facility] and green sheet left on chart at this time. SStaten ANDER GUERRA
--- NOTE | 2017-12-13 13:01 | PCM.CONS.R ---
Consultation - Renal 12/13/17 PCP/ Referring MD: Requesting physician: [] Primary care physician: Zaida Mcneil Reason for Consultation:: acute on CKD - History of Present Illness History of Present Illness: The patient is a 47 year old M past medical history of chronic diastolic CHF, LVH, hypertension, diabetes mellitus 2 on insulin therapy complicated by neuropathy, retinopathy, nephropathy with nephrotic proteinuria, obesity, hyperlipidemia, history of coronary artery disease, stage III CKD with anemia was seen in office on Saturday and had Wilhelm catheter removed. He then went to ER that same day for urinary retention, difficulty with urination and abdominal distension, scrotal edema. Wilhelm catheter was reinserted. Creatinine was 2.6 on 12/11, 2.83 on 12/12, 2.87 on 12/13. He was recently discharged from [facility] to home with home health on 12/06 with wilhelm due to neurogenic bladder. Creatinine improved from 3.74 to 3.19 prior to discharge. Baseline creatinine was 2.46 on h 11/20/17, 1.86 on 05/29/17. He has a history of medical and dietary noncompliance with his diabetes. Discussed with patient about dialysis in the near future, dialysis access. He was admitted on 12/11 for hypoglycemia sugar 40. He was started on Lasix drip for anasarca. BNP at 367. Urinalysis was noncontributory. Chest x-ray revealed stable heart size, mild congestive changes. He denied chest pain, shortness of breath, cough. He complained of scrotal edema. He has not been tested for sleep apnea yet. - Allergies Allergies: Allergies No Known Allergies Allergy (Verified 11/28/17 08:44) - Current Medications Current Medications: Current Medications Acetaminophen (Tylenol) 650 mg PO Q6H PRN PRN PRN Reason: Mild Pain (scale 0-3)/T>100.7 Last Admin: 12/13/17 01:31 Dose: 650 mg Albuterol Sulfate (Ventolin Aerosols) 2.5 mg INHALATION Q4H PRN PRN PRN Reason: SOB &/OR WHEEZING Aspirin (Aspirin, Baby) 81 mg PO DAILY@0800 [facility] Last Admin: 12/13/17 08:07 Dose: 81 mg Atenolol (Tenormin (Beta Silvana)) 100 mg PO DAILY [facility] Last Admin: 12/13/17 08:09 Dose: 100 mg Atorvastatin Calcium (Lipitor) 20 mg PO QHS [facility] Last Admin: 12/12/17 21:28 Dose: 20 mg Bupropion HCl (Wellbutrin Xl) 300 mg PO DAILY [facility] Last Admin: 12/13/17 08:09 Dose: 300 mg Gabapentin (Neurontin) 300 mg PO TIDCM [facility] Last Admin: 12/13/17 11:48 Dose: 300 mg Heparin Sodium (Porcine) (Heparin Na) 5,000 unit SC BID [facility] Last Admin: 12/13/17 08:08 Dose: 5,000 u Furosemide 500 mg/ N/A 50 mls @ 1 mls/hr CONT INF .Q50H [facility] PRN Reason: 10 MG/HR Last Admin: 12/12/17 08:36 Dose: 1 mls/hr Insulin Aspart (Novolog Flexpen (Bkc)) 2 units SC TIDAC [facility] Last Admin: 12/13/17 11:46 Dose: 2 u Insulin Aspart (Novolog Flexpen (Bkc)) 0 units SC TIDAC [facility] PRN Reason: Protocol Last Admin: 12/13/17 11:47 Dose: 2 u Insulin Detemir (Levemir (Bkc)) 34 units SC HS [facility] Last Admin: 12/12/17 21:29 Dose: 34 u Magnesium Hydroxide (Milk Of Magnesia) 30 ml PO DAILY PRN PRN Reason: Constipation Melatonin (Melatonin) 3 mg PO QHS PRN PRN Reason: SLEEP Psyllium Hydrophilic Mucilloid (Metamucil) 1 packet PO DAILY PRN PRN PRN Reason: CONSTIPATION Sodium Chloride () 5 - 30 ml IV UD PRN PRN Reason: SALINE FLUSH Last Admin: 12/10/17 21:08 Dose: 10 ml Tamsulosin HCl (Flomax) 0.4 mg PO BID@0830,1730 [facility] Last Admin: 12/13/17 08:07 Dose: 0.4 mg - Past Medical History Past Medical History (Chronic Problems): Chronic Problems Nephrosis (Chronic) Obesity (BMI 30-39.9) (Chronic) Noncompliance (Chronic) Diabetic neuropathy (Chronic) Diabetic nephropathy (Chronic) Diabetic retinopathy (Chronic) HTN (hypertension) (Chronic) HLD (hyperlipidemia) (Chronic) Blind left eye (Chronic) Diabetes mellitus type II, uncontrolled (Chronic) Anxiety and depression (Chronic) GERD (gastroesophageal reflux disease) (Chronic) Chewing tobacco nicotine dependence (Chronic) CKD (chronic kidney disease) stage 3, GFR 30-59 ml/min (Chronic) Leg edema, right (Chronic) History of acute myocardial infarction (Chronic) - Past Surgical History Surgical History: cholecystectomy, - - Cholecystectomy, left retinal tear repair attempts, right eye laser surgery. - Social History Marital Status: Smoking Status: Never smoker - Family History Maternal Family History: Family History (Last Updated 12/11/17 @ 14:35 by Mary Johnson) Mother Heart disease History Items: Heart Disease Paternal Family History: Family History (Last Updated 12/11/17 @ 14:35 by Mary Johnson) Mother Heart disease History Items: Cancer - Father w/ Colon CA. Sibling Family History: Family History (Last Updated 12/11/17 @ 14:35 by Mary Johnson) Mother Heart disease History Items: Diabetes - sister, brother who passed, no kidney disease Review of Systems Constitutional: Denies: Anorexia, Chills, Fever, Weakness, Fatigue Cardiovascular: Reports: Edema. Denies: Chest Pain Respiratory: Denies: Cough, Shortness of Breath Gastrointestinal: Reports: - - appetite good. Denies: Abdominal Pain, Constipation, Diarrhea, Nausea, Vomiting Genitourinary: Denies: Dysuria Skin: Denies: Rash Neurological: Denies: Balance problems Psychiatric: Reports: Anxiety, Depression Hematologic/ Lymphatic: Reports: Anemia. Denies: Hx of blood clot Patient Problems: Active and Suspected Problems Acute on chronic diastolic CHF (congestive heart failure) (Acute) Acute hypoxemic respiratory failure (Acute) Hypoglycemia (Acute) resolved in ED - Physical Exam General: Alert, Oriented x3, Cooperative, No apparent distress HEENT: PERRLA, EOMI Oral: Moist Mucosa Neck: Supple Lungs: Clear to auscultation Cardiovascular: Regular rate Abdomen: Bowel Sounds Present, Soft, Non Tender, Obese Extremities: Edema - 1+ pitting Skin: No rashes Musculoskeletal: No Muscle Wasting Neurological: Cranial nerves II-XII grossly intact Psych/Mental Status: Normal Affect, Appropriate, Alert and oriented to time, place, person, mood and affect Vital Signs Temp Pulse Resp BP Pulse Ox 98.5 F 72 16 138/78 H 95 12/13/17 12:19 12/13/17 12:19 12/13/17 12:19 12/13/17 12:19 12/13/17 12:19 Oxygen Flow Rate (L/min) 3 Oxygen Delivery Method Room Air Weight: 102 kg Body Mass Index (BMI) 37.4 Intake and Output for Last 24 Hours 12/11/17 12/12/17 12/13/17 23:59 23:59 23:59 Intake Total 1425.8 / 1425.8 935.2 / 935.2 972.4 / 972.4 Output Total 7025 / 7025 4800 / 4800 4950 / 4950 Balance -5599.2 / -5599.2 -3864.8 / -3864.8 -3977.6 / -3977.6 Laboratory Tests Past 24 Hrs 12/13/17 12/13/17 06:13 06:13 WBC 7.1 RBC 3.64 L Hgb 10.5 L Hct 31.7 L MCV 87.1 MCH 28.8 MCHC 33.1 RDW 12.5 RDW Differential 38.1 Plt Count 248 MPV 8.8 Sodium 141 Potassium 4.0 Chloride 101 Carbon Dioxide 33.0 H Anion Gap 7 BUN 55 H Creatinine 2.87 H Estim Creat Clear Calc 30.12 Est GFR (MDRD) Af Amer 30 L Est GFR (MDRD) Non-Af 25 L BUN/Creatinine Ratio 19.2 Glucose 193 H Calcium 8.4 L Phosphorus 4.4 POC Glucose 12/13/17 12/13/17 12/12/17 10:50 06:46 20:45 POC Glucose 284 H 193 H 358 H 12/12/17 16:09 POC Glucose 223 H Clinical Impression(s) from Imaging Studies Chest X-Ray 12/10/17 17:10 IMPRESSION: Moderate pulmonary vascular congestion which is worse when compared with the prior exam. Small bilateral pleural effusions. Stable mild cardiomegaly. Electronically Signed: Torres Islas, at 18:02 EDT Tel , Service support , Assessment/Plan Active and Suspected Problems Acute on chronic diastolic CHF (congestive heart failure) (Acute) Acute hypoxemic respiratory failure (Acute) Hypoglycemia (Acute) resolved in ED 1. ILDA on CKD stage 3 due to urinary retention. Wilhelm catheter reinserted. Creatinine 2.6 on admit to 2.87 today on lasix drip. Baseline creatinine 2.46 on 11/20, 1.86 on 05/29/17. Creatinine was 3.7 improved to 3.19 during last hospitalization. Continue with wilhelm. Discussed with pt about dialysis, dialysis access in the near future if renal fxn continues to decline. 2. Urinary retention with wilhelm to CD, anasarca. Switch lasix drip to intermittent iv lasix. 3. DM2 with history of noncompliance 4. HTN stable 5. Anemia stable 6. Fluid retention, anasarca with nephrotic proteinuria from diabetes. BNP 408. Watch for worsening azotemia on iv lasix.
--- NOTE | 2017-12-13 13:11 | CON.PCM_ITS ---
Consultation - Renal 12/13/17 PCP/ Referring MD: Requesting physician: [] Primary care physician: Zaida Mcneil Reason for Consultation:: acute on CKD - History of Present Illness History of Present Illness: The patient is a 47 year old M past medical history of chronic diastolic CHF, LVH, hypertension, diabetes mellitus 2 on insulin therapy complicated by neuropathy, retinopathy, nephropathy with nephrotic proteinuria, obesity, hyperlipidemia, history of coronary artery disease, stage III CKD with anemia was seen in office on Saturday and had Wilhelm catheter removed. He then went to ER that same day for urinary retention, difficulty with urination and abdominal distension, scrotal edema. Wilhelm catheter was reinserted. Creatinine was 2.6 on 12/11, 2.83 on 12/12, 2.87 on 12/13. He was recently discharged from [facility] to home with home health on 12/06 with wilhelm due to neurogenic bladder. Creatinine improved from 3.74 to 3.19 prior to discharge. Baseline creatinine was 2.46 on h 11/20/17, 1.86 on 05/29/17. He has a history of medical and dietary noncompliance with his diabetes. Discussed with patient about dialysis in the near future, dialysis access. He was admitted on 12/11 for hypoglycemia sugar 40. He was started on Lasix drip for anasarca. BNP at 367. Urinalysis was noncontributory. Chest x-ray revealed stable heart size, mild congestive changes. He denied chest pain, shortness of breath, cough. He complained of scrotal edema. He has not been tested for sleep apnea yet. - Allergies Allergies: Allergies No Known Allergies Allergy (Verified 11/28/17 08:44) - Current Medications Current Medications: Current Medications Acetaminophen (Tylenol) 650 mg PO Q6H PRN PRN PRN Reason: Mild Pain (scale 0-3)/T>100.7 Last Admin: 12/13/17 01:31 Dose: 650 mg Albuterol Sulfate (Ventolin Aerosols) 2.5 mg INHALATION Q4H PRN PRN PRN Reason: SOB &/OR WHEEZING Aspirin (Aspirin, Baby) 81 mg PO DAILY@0800 [facility] Last Admin: 12/13/17 08:07 Dose: 81 mg Atenolol (Tenormin (Beta Silvana)) 100 mg PO DAILY [facility] Last Admin: 12/13/17 08:09 Dose: 100 mg Atorvastatin Calcium (Lipitor) 20 mg PO QHS [facility] Last Admin: 12/12/17 21:28 Dose: 20 mg Bupropion HCl (Wellbutrin Xl) 300 mg PO DAILY [facility] Last Admin: 12/13/17 08:09 Dose: 300 mg Gabapentin (Neurontin) 300 mg PO TIDCM [facility] Last Admin: 12/13/17 11:48 Dose: 300 mg Heparin Sodium (Porcine) (Heparin Na) 5,000 unit SC BID [facility] Last Admin: 12/13/17 08:08 Dose: 5,000 u Furosemide 500 mg/ N/A 50 mls @ 1 mls/hr CONT INF .Q50H [facility] PRN Reason: 10 MG/HR Last Admin: 12/12/17 08:36 Dose: 1 mls/hr Insulin Aspart (Novolog Flexpen (Bkc)) 2 units SC TIDAC [facility] Last Admin: 12/13/17 11:46 Dose: 2 u Insulin Aspart (Novolog Flexpen (Bkc)) 0 units SC TIDAC [facility] PRN Reason: Protocol Last Admin: 12/13/17 11:47 Dose: 2 u Insulin Detemir (Levemir (Bkc)) 34 units SC HS [facility] Last Admin: 12/12/17 21:29 Dose: 34 u Magnesium Hydroxide (Milk Of Magnesia) 30 ml PO DAILY PRN PRN Reason: Constipation Melatonin (Melatonin) 3 mg PO QHS PRN PRN Reason: SLEEP Psyllium Hydrophilic Mucilloid (Metamucil) 1 packet PO DAILY PRN PRN PRN Reason: CONSTIPATION Sodium Chloride () 5 - 30 ml IV UD PRN PRN Reason: SALINE FLUSH Last Admin: 12/10/17 21:08 Dose: 10 ml Tamsulosin HCl (Flomax) 0.4 mg PO BID@0830,1730 [facility] Last Admin: 12/13/17 08:07 Dose: 0.4 mg - Past Medical History Past Medical History (Chronic Problems): Chronic Problems Nephrosis (Chronic) Obesity (BMI 30-39.9) (Chronic) Noncompliance (Chronic) Diabetic neuropathy (Chronic) Diabetic nephropathy (Chronic) Diabetic retinopathy (Chronic) HTN (hypertension) (Chronic) HLD (hyperlipidemia) (Chronic) Blind left eye (Chronic) Diabetes mellitus type II, uncontrolled (Chronic) Anxiety and depression (Chronic) GERD (gastroesophageal reflux disease) (Chronic) Chewing tobacco nicotine dependence (Chronic) CKD (chronic kidney disease) stage 3, GFR 30-59 ml/min (Chronic) Leg edema, right (Chronic) History of acute myocardial infarction (Chronic) - Past Surgical History Surgical History: cholecystectomy, - - Cholecystectomy, left retinal tear repair attempts, right eye laser surgery. - Social History Marital Status: Smoking Status: Never smoker - Family History Maternal Family History: Family History (Last Updated 12/11/17 @ 14:35 by Mary Johnson) Mother Heart disease History Items: Heart Disease Paternal Family History: Family History (Last Updated 12/11/17 @ 14:35 by Mary Johnson) Mother Heart disease History Items: Cancer - Father w/ Colon CA. Sibling Family History: Family History (Last Updated 12/11/17 @ 14:35 by Mary Johnson) Mother Heart disease History Items: Diabetes - sister, brother who passed, no kidney disease Review of Systems Constitutional: Denies: Anorexia, Chills, Fever, Weakness, Fatigue Cardiovascular: Reports: Edema. Denies: Chest Pain Respiratory: Denies: Cough, Shortness of Breath Gastrointestinal: Reports: - - appetite good. Denies: Abdominal Pain, Constipation, Diarrhea, Nausea, Vomiting Genitourinary: Denies: Dysuria Skin: Denies: Rash Neurological: Denies: Balance problems Psychiatric: Reports: Anxiety, Depression Hematologic/ Lymphatic: Reports: Anemia. Denies: Hx of blood clot Patient Problems: Active and Suspected Problems Acute on chronic diastolic CHF (congestive heart failure) (Acute) Acute hypoxemic respiratory failure (Acute) Hypoglycemia (Acute) resolved in ED - Physical Exam General: Alert, Oriented x3, Cooperative, No apparent distress HEENT: PERRLA, EOMI Oral: Moist Mucosa Neck: Supple Lungs: Clear to auscultation Cardiovascular: Regular rate Abdomen: Bowel Sounds Present, Soft, Non Tender, Obese Extremities: Edema - 1+ pitting Skin: No rashes Musculoskeletal: No Muscle Wasting Neurological: Cranial nerves II-XII grossly intact Psych/Mental Status: Normal Affect, Appropriate, Alert and oriented to time, place, person, mood and affect Vital Signs Temp Pulse Resp BP Pulse Ox 98.5 F 72 16 138/78 H 95 12/13/17 12:19 12/13/17 12:19 12/13/17 12:19 12/13/17 12:19 12/13/17 12:19 Oxygen Flow Rate (L/min) 3 Oxygen Delivery Method Room Air Weight: 102 kg Body Mass Index (BMI) 37.4 Intake and Output for Last 24 Hours 12/11/17 12/12/17 12/13/17 23:59 23:59 23:59 Intake Total 1425.8 / 1425.8 935.2 / 935.2 972.4 / 972.4 Output Total 7025 / 7025 4800 / 4800 4950 / 4950 Balance -5599.2 / -5599.2 -3864.8 / -3864.8 -3977.6 / -3977.6 Laboratory Tests Past 24 Hrs 12/13/17 12/13/17 06:13 06:13 WBC 7.1 RBC 3.64 L Hgb 10.5 L Hct 31.7 L MCV 87.1 MCH 28.8 MCHC 33.1 RDW 12.5 RDW Differential 38.1 Plt Count 248 MPV 8.8 Sodium 141 Potassium 4.0 Chloride 101 Carbon Dioxide 33.0 H Anion Gap 7 BUN 55 H Creatinine 2.87 H Estim Creat Clear Calc 30.12 Est GFR (MDRD) Af Amer 30 L Est GFR (MDRD) Non-Af 25 L BUN/Creatinine Ratio 19.2 Glucose 193 H Calcium 8.4 L Phosphorus 4.4 POC Glucose 12/13/17 12/13/17 12/12/17 10:50 06:46 20:45 POC Glucose 284 H 193 H 358 H 12/12/17 16:09 POC Glucose 223 H Clinical Impression(s) from Imaging Studies Chest X-Ray 12/10/17 17:10 IMPRESSION: Moderate pulmonary vascular congestion which is worse when compared with the prior exam. Small bilateral pleural effusions. Stable mild cardiomegaly. Electronically Signed: Torres Islas, at 18:02 EDT Tel , Service support , Assessment/Plan Active and Suspected Problems Acute on chronic diastolic CHF (congestive heart failure) (Acute) Acute hypoxemic respiratory failure (Acute) Hypoglycemia (Acute) resolved in ED 1. ILDA on CKD stage 3 due to urinary retention. Wilhelm catheter reinserted. Creatinine 2.6 on admit to 2.87 today on lasix drip. Baseline creatinine 2.46 on 11/20, 1.86 on 05/29/17. Creatinine was 3.7 improved to 3.19 during last hospitalization. Continue with wilhelm. Discussed with pt about dialysis, dialysis access in the near future if renal fxn continues to decline. 2. Urinary retention with wilhelm to CD, anasarca. Switch lasix drip to intermittent iv lasix. 3. DM2 with history of noncompliance 4. HTN stable 5. Anemia stable 6. Fluid retention, anasarca with nephrotic proteinuria from diabetes. BNP 408. Watch for worsening azotemia on iv lasix.
[2017-12-13 17:01] LABS: Bedside Glucose 293 mg/dL (70-110)
[2017-12-13] MEDS: Atorvastatin Calcium 20 MG Tablet PO (22:29)
[2017-12-13 22:41] LABS: Bedside Glucose 391 mg/dL (70-110)
[2017-12-14] VITALS (7 sets, daily range): BP systolic 122–158; BP diastolic 62–75; PULSE 68–79; RESP 16; TEMP 36.6–37.1; O2SAT 92–95
[2017-12-14 07:06] LABS: Bedside Glucose 182 mg/dL (70-110)
[2017-12-14 07:58] LABS: Albumin, Serum 2.1 g/dL (3.2-5.0); BUN 52 mg/dL (7-18); BUN/Creat Ratio 18.4 RATIO (10-20); Calcium,Total 8.7 mg/dL (8.5-10.1); Chloride 99 mmol/L (98-107); Creatinine, Serum 2.82 mg/dL (0.70-1.30); EST Glomerular Filtration Rate 26 mL/min (>60); Est Glom Filt Rate - Afr Amer 31 mL/min (>60); Estimated Creatinine Clearance 30.66 ml/min; Glucose 152 mg/dL (74-106); Phosphorus 4.3 mg/dL (2.5-4.9); Potassium 3.6 mmol/L (3.5-5.1); Sodium Level 142 mmol/L (136-145)
[2017-12-14] MEDS: Aspirin 81 MG TAB.CHEW PO (08:10)
[2017-12-14] MEDS: Tamsulosin HCl 0.4 MG Capsule PO ×2 (08:10→16:18)
[2017-12-14] MEDS: Gabapentin 300 MG Capsule PO ×3 (08:10→16:17)
[2017-12-14] MEDS: buPROPion (XL) 300 MG TABLET.XL PO (10:25)
[2017-12-14] MEDS: Atenolol 100 MG Tablet PO (10:26)
[2017-12-14 11:20] LABS: Bedside Glucose 143 mg/dL (70-110)
[2017-12-14] MEDS: 0.9% NaCl Peripheral Flush Adult/Peds IV (12:55)
--- NOTE | 2017-12-14 14:58 | PCM.PN.REN ---
Patient Problems: Active and Suspected Problems Acute on chronic diastolic CHF (congestive heart failure) (Acute) Acute hypoxemic respiratory failure (Acute) Hypoglycemia (Acute) resolved in ED Subjective: Edema significantly improved with IV Lasix. Wilhelm catheter removed at 1 PM this afternoon. Still has not been able to urinate spontaneously yet. Creatinine slightly improved today. - Physical Exam General: Alert, Oriented x3, Cooperative Lungs: Clear to auscultation Cardiovascular: Regular rate Abdomen: Bowel Sounds Present, Soft, Non Tender, Obese Extremities: Edema - Mild leg edema Skin: No rashes Neurological: Cranial nerves II-XII grossly intact Psych/Mental Status: Normal Affect, Appropriate, Alert and oriented to time, place, person, mood and affect Vital Signs Temp Pulse Resp BP Pulse Ox 98.7 F 77 16 137/75 H 94 12/14/17 14:53 12/14/17 14:53 12/14/17 14:53 12/14/17 14:53 12/14/17 14:53 Oxygen Flow Rate (L/min) 3 Oxygen Delivery Method Room Air Weight: 99.3 kg Body Mass Index (BMI) 37.4 Intake and Output for Last 24 Hours 12/12/17 12/13/17 12/14/17 23:59 23:59 23:59 Intake Total 935.2 / 935.2 1327.4 / 1327.4 1917.4 / 1917.4 Output Total 4800 / 4800 6300 / 6300 5375 / 5375 Balance -3864.8 / -3864.8 -4972.6 / -4972.6 -3457.6 / -3457.6 Laboratory Tests Past 24 Hrs 12/14/17 07:08 Sodium 142 Potassium 3.6 Chloride 99 Carbon Dioxide 35.0 H BUN 52 H Creatinine 2.82 H Estim Creat Clear Calc 30.66 Est GFR (MDRD) Af Amer 31 L Est GFR (MDRD) Non-Af 26 L BUN/Creatinine Ratio 18.4 Glucose 152 H Calcium 8.7 Phosphorus 4.3 Albumin 2.1 L POC Glucose 12/14/17 12/14/17 12/13/17 11:18 06:56 22:31 POC Glucose 143 H 182 H 391 H 12/13/17 16:39 POC Glucose 293 H Medical Necessity - Tobacco Use Smoking Status: Never smoker Assessment/Plan Active and Suspected Problems Acute on chronic diastolic CHF (congestive heart failure) (Acute) Acute hypoxemic respiratory failure (Acute) Hypoglycemia (Acute) resolved in ED 1. ILDA on CKD stage 3 due to urinary retention. Wilhelm catheter removed this afternoon. Still no urinary output on his own. May need to dc with wilhelm catheter and follow up with . Creatinine 2.6 on admit to 2.87 yesterday, 2.82 today. T Baseline creatinine 2.46 on 11/20, 1.86 on 05/29/17. 2. Urinary retention with wilhelm to CD, anasarca. DC to home on Lasix 40 mg twice a day. 3. DM2 with history of noncompliance 4. HTN stable 5. Anemia stable
[2017-12-14] MEDS: Furosemide 20 MG Tablet 60 MG PO (16:18)
[2017-12-14 16:25] LABS: Bedside Glucose 161 mg/dL (70-110)
--- NOTE | 2017-12-14 18:06 | PCM.DC ---
- Discharge Diagnoses Current Active Problems: Current Active and Chronic Problems Acute on chronic diastolic CHF (congestive heart failure) (Acute) Acute hypoxemic respiratory failure (Acute) Nephrosis (Chronic) Hypoglycemia (Acute) resolved in ED You will use the following diet at home:: Calorie/Carbohydrate Controlled (specify 1200, 1400, etc) - 4482-2582 calories, 2 GM sodium, 60 GM protein, Fluid restricted (specify 2000 mls, 1500 mls) - 1200 cc daily Your food should be the consistency of: Regular Your liquids should be the consistency of: Regular/Thin Keep extremity elevated above heart level: Legs Call your doctor if you observe: Fever of 101 or Higher, Shortness of breath, Dizziness, Fainting spells, - - increased swelling of the abdomen, legs or scrotum Instructions: Arteriovenous (AV) Fistula for Dialysis, Hemodialysis, MyPlate Worksheet: 1,800 Calories, ED Nephrotic Syndrome Additional Instructions: 1. The dieticians have an outpatient clinic to help with managing specific diets. Ask Dr. Mcneil for a referral to the diabetic clinic. 2. I am decreasing the amount of insulin you are taking at home because since you have a better diet you need less insulin. 3. I am increasing the amount of Lasix you are taking at home to help control the reaccumulation of the fluid. Your part is you have to control how much you are drinking. Keep your fluid intake between 1200 and 1500. Salt causes fluid retention to do not salt your food and avoid canned vegetables and soups. Lunch meats and cheeses also have a lot of salt. You will be better off with fresh vegetables and home made soups. When you eat at a restaurant there is a very high salt content. The rfp writer's can help you with what to pick to eat if you do go out. 4. You are going to need to be on dialysis in the not too distant future.....some day you may be a candidate for a kidney transplant BUT, you need to get your blood sugars controlled and be compliant with medications and follow up with your doctors or you will not be considered. 5. Weigh your self in the morning after you urinate and write the number down. You should weigh yourself every day naked in the morning after urinating. If the weight increases by more than 5 lbs in a week you are retaining fluid and you should call Dr. Montiel for instructions on what to do with the Lasix. Pending Tests on Discharge: none Allergies/Adverse Reactions: Allergies No Known Allergies Allergy (Verified 11/28/17 08:44) Medications to take at Discharge Gabapentin [Neurontin] 300 mg PO TIDCM 07/15/13 Bupropion HCl [Wellbutrin Xl] 300 mg PO DAILY 05/06/17 Aspirin 81 mg PO DAILY 11/19/17 Atorvastatin Calcium [Lipitor] 20 mg PO QHS 11/19/17 Atenolol [Tenormin (beta elizabeth)] 100 mg PO DAILY 11/28/17 Insulin Aspart [Novolog Flexpen] See Protocol SC ACHS flexpen 12/05/17 Psyllium [Metamucil] 1 packet PO DAILY PRN PRN packet 12/05/17 Albuterol Inhaler [Ventolin Hfa] 2 puff INHALATION Q4H PRN PRN #1 inhaler 12/06/17 Insulin Aspart [Novolog Flexpen] 15 units SC TIDCM #1 flexpen 12/06/17 Insulin Glargine [Lantus SoloStar Pen] 65 units SC QHS 12/10/17 Tamsulosin HCl [Flomax] 0.4 mg PO BID@0830,1730 12/10/17 Furosemide [Lasix] 60 mg PO BIDLX #90 tab 12/14/17 The following prescriptions were given: Furosemide [Lasix] 60 mg PO BIDLX #90 tab Primary Care Physician: Zaida Mcneil MD [Primary Care Provider] - Please follow up with your Primary Care Physician in: 5-7 days Please Follow Up With: Loida Montiel DO When: 2 weeks Please Follow Up With: Oswald Arriola MD When: as needed. Please Follow Up With: [facility] When: within the month Please Follow Up With: diabetic clinic When: BECK for instruction on diet. Proposed Discharge Date: 12/14/17
--- NOTE | 2017-12-14 18:34 | DCINST_ITS ---
- Discharge Diagnoses Current Active Problems: Current Active and Chronic Problems Acute on chronic diastolic CHF (congestive heart failure) (Acute) Acute hypoxemic respiratory failure (Acute) Nephrosis (Chronic) Hypoglycemia (Acute) resolved in ED You will use the following diet at home:: Calorie/Carbohydrate Controlled ( specify 1200, 1400, etc) - 5500-3624 calories, 2 GM sodium, 60 GM protein, Fluid restricted (specify 2000 mls, 1500 mls) - 1200 cc daily Your food should be the consistency of: Regular Your liquids should be the consistency of: Regular/Thin Keep extremity elevated above heart level: Legs Call your doctor if you observe: Fever of 101 or Higher, Shortness of breath, Dizziness, Fainting spells, - - increased swelling of the abdomen, legs or scrotum Instructions: Arteriovenous (AV) Fistula for Dialysis, Hemodialysis, MyPlate Worksheet: 1,800 Calories, ED Nephrotic Syndrome Additional Instructions: 1. The dieticians have an outpatient clinic to help with managing specific diets. Ask Dr. Mcneil for a referral to the diabetic clinic. 2. I am decreasing the amount of insulin you are taking at home because since you have a better diet you need less insulin. 3. I am increasing the amount of Lasix you are taking at home to help control the reaccumulation of the fluid. Your part is you have to control how much you are drinking. Keep your fluid intake between 1200 and 1500. Salt causes fluid retention to do not salt your food and avoid canned vegetables and soups. Lunch meats and cheeses also have a lot of salt. You will be better off with fresh vegetables and home made soups. When you eat at a restaurant there is a very high salt content. The call center nurse's can help you with what to pick to eat if you do go out. 4. You are going to need to be on dialysis in the not too distant future.....some day you may be a candidate for a kidney transplant BUT, you need to get your blood sugars controlled and be compliant with medications and follow up with your doctors or you will not be considered. 5. Weigh your self in the morning after you urinate and write the number down. You should weigh yourself every day naked in the morning after urinating. If the weight increases by more than 5 lbs in a week you are retaining fluid and you should call Dr. Montiel for instructions on what to do with the Lasix. Pending Tests on Discharge: none Allergies/Adverse Reactions: Allergies No Known Allergies Allergy (Verified 11/28/17 08:44) Medications to take at Discharge Gabapentin [Neurontin] 300 mg PO TIDCM 07/15/13 Bupropion HCl [Wellbutrin Xl] 300 mg PO DAILY 05/06/17 Aspirin 81 mg PO DAILY 11/19/17 Atorvastatin Calcium [Lipitor] 20 mg PO QHS 11/19/17 Atenolol [Tenormin (beta elizabeth)] 100 mg PO DAILY 11/28/17 Insulin Aspart [Novolog Flexpen] See Protocol SC ACHS flexpen 12/05/17 Psyllium [Metamucil] 1 packet PO DAILY PRN PRN packet 12/05/17 Albuterol Inhaler [Ventolin Hfa] 2 puff INHALATION Q4H PRN PRN #1 inhaler Insulin Aspart [Novolog Flexpen] 15 units SC TIDCM #1 flexpen 12/06/17 Insulin Glargine [Lantus SoloStar Pen] 65 units SC QHS 12/10/17 Tamsulosin HCl [Flomax] 0.4 mg PO BID@0830,1730 12/10/17 Furosemide [Lasix] 60 mg PO BIDLX #90 tab 12/14/17 The following prescriptions were given: Furosemide [Lasix] 60 mg PO BIDLX #90 tab Primary Care Physician: Zaida Mcneil MD [Primary Care Provider] - Please follow up with your Primary Care Physician in: 5-7 days Please Follow Up With: Loida Monteil DO When: 2 weeks Please Follow Up With: Oswald Arriola MD When: as needed. Please Follow Up With: [facility] When: within the month Please Follow Up With: diabetic clinic When: BECK for instruction on diet. Proposed Discharge Date: 12/14/17
--- NOTE | 2017-12-14 19:00 | PCM.DC.SUM ---
Discharge Date and Diagnosis Date of Admission: 12/10/17 Date of Discharge: 12/14/17 - Primary Discharge Diagnosis Active and Suspected Problems Anasarca associated with disorder of kidney (Acute) Autonomic neuropathy (Suspected) Acute on chronic diastolic CHF (congestive heart failure) (Acute) Hypoglycemia (Acute) resolved in ED - Secondary Discharge Diagnosis Chronic Problems Anemia of chronic renal failure, stage 4 (severe) (Chronic) Chronic renal failure, stage 4 (severe) (Chronic) Obesity (BMI 30-39.9) (Chronic) Noncompliance (Chronic) Diabetic neuropathy (Chronic) Diabetic nephropathy (Chronic) Diabetic retinopathy (Chronic) HTN (hypertension) (Chronic) HLD (hyperlipidemia) (Chronic) Blind left eye (Chronic) Diabetes mellitus type II, uncontrolled (Chronic) Anxiety and depression (Chronic) GERD (gastroesophageal reflux disease) (Chronic) Chewing tobacco nicotine dependence (Chronic) History of acute myocardial infarction (Chronic) Nephrotic S. Hospital Course and Treatment Imaging Results: Clinical Impression(s) from Imaging Studies Chest X-Ray 12/10/17 17:10 IMPRESSION: Moderate pulmonary vascular congestion which is worse when compared with the prior exam. Small bilateral pleural effusions. Stable mild cardiomegaly. Electronically Signed: Torres Islas, at 18:02 EDT Tel , Service support , Dr. Loida Montiel-nephrology Operations: None Procedures: None Summary of Care Provided: Patient is a 47-year-old male with a past medical history of diastolic congestive heart failure, left ventricular hypertrophy, diabetes mellitus type 2, diabetic nephropathy, nephrotic syndrome, diabetic neuropathy, diabetic retinopathy, obesity, noncompliance with diet and medications, hypertension, hyperlipidemia, anxiety/depression, GERD, Bacot dependence (chewing tobacco), chronic renal failure stage III and urine retention who was sent to the ED by his doctor for scrotal edema and SOB. At presentation to the emergency room he was afebrile with a heart rate of 66, blood pressure of 135/94, respiratory rate 18 and he was 96% saturated on room air. Creatinine was 2.7 which is within the range of creatinines over the past month. BNP was 366.8, lactic acid was 1.1, glucose was 40 and troponin was less than 0.02. UA had 5-10 white blood cells and greater than 100 red blood cells with no bacteria seen. Chest x-ray showed pulmonary vascular congestion. Ejection fraction on a recent echocardiogram was 65% and the PA systolic could not be estimated secondary to technically difficult study. He was admitted to PCU with a dx of Acute on chronic diastolic CHF and started on a continuous Lasix infusion. Amlodipine was discontinued due to the side effect of peripheral edema. Dr. Loida Montiel was consulted. Serial renal profiles were followed while on Lasix infusion and he diuresed quite well. Fluid balance at [place] was -20,472. His weight decreased from 246 lbs and 14 ounces at admission to 218 and 14 ounces at DC. Adjustments were made to the insuling dosing and prior to DC the BS's were all less than 200. His insulin requirement in the hospital is considerably less than at home. Recently his has been preparing all his meals and his blood sugars have improved at home. He has been hypoglycemic at times. She requested education on diet and I referred her to the diabetic clinic run by the dieticians. On the date of discharge the serum bicarb was 35 and the BUN was 52 with a creatinine of 2.82 which was stable. On physical exam the lungs were CTA and the peripheral edema was much improved. He still had edema of the scrotum and the foreskin and he was provided with a scrotal support prior to DC. He was advised that wearing compression stockings anytime his legs were dependent would aid in controlling peripheral edema. The insulin regimen at discharge included Lantus 35 units subcu nightly, NovoLog 4 units subcu 3 times daily with meals and a sliding insulin scale. He was discharged on 60 mg of Lasix twice daily. He will follow up with Dr. Mcneil in 5-[address] Loida Montiel in 2 weeks. A voiding trial was done prior to discharge and the patient was unable to void even with greater than 600 cc of urine in the bladder. The Sky was reinserted and he will follow up with Dr. Arriola. His related that she was shown 1 time in the office how to do a self cath but she never attempted this and she would like additional education and also to be monitored at least once while performing the procedure. She was referred to Dr. Arriola's office. The patient was given literature at [place] re: HD, AV fistula placement, nephrotic S. and an 1800 calorie Myplate worksheet. They have an appt with Norah Adasm to help with getting the BS's controlled. This note was generated with [employer] dictation software. It may contain incorrect words, spelling, and punctuation that were not noted in checking the note before signing. Keep extremity elevated above heart level: Legs Call your doctor if you observe: Fever of 101 or Higher, Shortness of breath, Dizziness, Fainting spells, - - increased swelling of the abdomen, legs or scrotum Home Medications: Medications to take at Discharge Gabapentin [Neurontin] 300 mg PO TIDCM 07/15/13 Bupropion HCl [Wellbutrin Xl] 300 mg PO DAILY 05/06/17 Aspirin 81 mg PO DAILY 11/19/17 Atorvastatin Calcium [Lipitor] 20 mg PO QHS 11/19/17 Atenolol [Tenormin (beta elizabeth)] 100 mg PO DAILY 11/28/17 Insulin Aspart [Novolog Flexpen] See Protocol SC ACHS flexpen 12/05/17 Psyllium [Metamucil] 1 packet PO DAILY PRN PRN packet 12/05/17 Albuterol Inhaler [Ventolin Hfa] 2 puff INHALATION Q4H PRN PRN #1 inhaler 12/06/17 Tamsulosin HCl [Flomax] 0.4 mg PO BID@0830,1730 12/10/17 Furosemide [Lasix] 60 mg PO BIDLX #90 tab 12/14/17 Insulin Aspart [Novolog Flexpen] 4 units SC TIDCM #1 flexpen 12/14/17 Insulin Glargine [Lantus SoloStar Pen] 35 units SC QHS #0 12/14/17 Following Prescrptions Were Given to Patient: Furosemide [Lasix] 60 mg PO BIDLX #90 tab Primary Care Physician: Zaida Mcneil MD [Primary Care Provider] - Please follow up with your Primary Care Physician in: 5-7 days Please Follow Up With: Loida Montiel DO When: 2 weeks Please Follow Up With: Oswald Arriola MD When: as needed. Please Follow Up With: [facility] When: within the month Please Follow Up With: diabetic clinic When: [facility]ECK for instruction on diet. Patient Instructions: Arteriovenous (AV) Fistula for Dialysis, Hemodialysis, MyPlate Worksheet: 1,800 Calories, ED Nephrotic Syndrome Disposition: Home Minutes spent on discharge:: 40 Patient Condition:: Stable Medical Necessity - Tobacco Use Smoking Status: Never smoker Meaningful Use Info Meaningful Use Diagnoses (Choose all that apply): CHF - CHF TOM/ARB ordered at discharge?: No Reason TOM/ARB not ordered?: Worsening renal dysfunctn Documented LVEF (%): 65 Code Visit Inpatient E&M: 17068 Disch Hosp
== END 2017-12-14 19:45 | disposition home health service (06) | DRG 291 ==
LOC: ED 17:45 → PCU 19:25
PROVIDERS: Internal Medicine Nephrology; Admitting Provider Internal Medicine; Emergency Provider Emergency Medicine; Family Provider Internal Medicine; PCP Internal Medicine; Visit Provider Internal Medicine
DX: I13.0 Hypertensive heart and chronic kidney disease with heart failure and stage 1 through stage 4 chronic kidney disease, or unspecified chronic kidney disease (principal); J96.01 Acute respiratory failure with hypoxia; I50.33 Acute on chronic diastolic (congestive) heart failure; N04.9 Nephrotic syndrome with unspecified morphologic changes; G90.9 Disorder of the autonomic nervous system, unspecified; N18.3 Chronic kidney disease, stage 3 (moderate); I11.0 Hypertensive heart disease with heart failure; E11.21 Type 2 diabetes mellitus with diabetic nephropathy; E11.22 Type 2 diabetes mellitus with diabetic chronic kidney disease; E11.65 Type 2 diabetes mellitus with hyperglycemia; I25.10 Atherosclerotic heart disease of native coronary artery without angina pectoris; K21.9 Gastro-esophageal reflux disease without esophagitis; N50.89 Other specified disorders of the male genital organs; E78.5 Hyperlipidemia, unspecified; N31.9 Neuromuscular dysfunction of bladder, unspecified; D63.1 Anemia in chronic kidney disease; E11.649 Type 2 diabetes mellitus with hypoglycemia without coma; H54.62 Unqualified visual loss, left eye, normal vision right eye; E11.40 Type 2 diabetes mellitus with diabetic neuropathy, unspecified; E66.9 Obesity, unspecified; F41.9 Anxiety disorder, unspecified; F32.9 Major depressive disorder, single episode, unspecified; F17.220 Nicotine dependence, chewing tobacco, uncomplicated; Z79.4 Long term (current) use of insulin; I25.2 Old myocardial infarction; Z91.11 Patient's noncompliance with dietary regimen; Z68.38 Body mass index [BMI] 38.0-38.9, adult
CPT/HCPCS: 36415; 71045; 80048; 80061; 80069; 81001; 82962; 83605; 83735; 83880; 84100; 84443; 84484; 85025; 85027; 93005; 93970; 97110; 97116; 97162; 97166; 97530; 99251; 99284; J7030; A4216; G0463; J1940

== ENCOUNTER 2017-12-22 14:17 | Emergency (ER) | payer MEDICARE, SELFPAY ==
[2017-12-22 14:18] VITALS: BP 140/81; PULSE 72; RESP 18; TEMP 36.6; O2SAT 98; BMI 30.3
[2017-12-22 15:36] LABS: Mucous, Urine 0 SEEN /hpf (<or=2+)
[2017-12-22 16:17] VITALS: RESP 16
[2017-12-22 16:24] LABS: Color, Urine Yellow (Yellow); Glucose, Dipstick 250 mg/dl (Normal); Ketone-Dipstick 5 mg/dl (Negative); Leukocyte Esterase-Dipstick 500 /ul (Negative); Nitrite-Dipstick Positive (Negative); Occult Blood-Urine 250 /ul (Negative); Protein-Dipstick 500 mg/dl (Negative); Urine Bilirubin Dipstick Negative (Negative); Urine Clarity Cloudy (Clear); Urine Urobilinogen 1 mg/dl (Normal)
[2017-12-22 16:33] LABS: Bacteria 2+ /hpf (None Seen); Red Blood Cells-Urine 0-5 SEEN /hpf (0-5); Squamous Epithelial Cells - UA 5-10 SEEN /hpf (0-5); White Blood Cells >100 SEEN /hpf (0-5)
--- NOTE | 2017-12-22 16:50 | ED.DCSUM_ITS ---
- ER Visit Summary Date of Service: 12/22/17 Chief Complaint: Cloudy urine History of Present Illness: The patient is a 47 M who presents with cloudy urine. He was recently admitted for anasarca and nephrotic syndrome. A Sky had been placed while he was being diuresed. After the Sky was removed he failed a voiding trial and was discharged with a Sky and has an appointment with urology tomorrow. Today he noticed that the urine was cloudy he otherwise has no complaints. Physical Examination: Afebrile vitals are stable Heart regular rate and rhythm Lungs are clear Abdomen soft Alert Urine in the Sky does appear very cloudy Test Results: UA shows 500 leukocyte esterase positive nitrates and greater than 100 WBCs. Emergency Department Course and Treatment: The catheter was changed. We discussed just removing it today for a voiding trial but he asked that we just change it so that he can see urology tomorrow and defer on any further decisions regarding discontinuing the Sky. Prescribed Cipro. He understands to return for new or worsening symptoms and was instructed on specific signs and symptoms to monitor for. Treatment Plan: [] Disposition: Discharge Impression: Sky change UTI This note was generated with [employer] dictation software. It may contain incorrect words, spelling, and punctuation that were not noted in review of the chart prior to signing ED Disposition - Plan for ED Patient: Chief Complaint: Complaint Referrals: Zaida Mcneil MD [Primary Care Provider] -
--- NOTE | 2017-12-22 16:50 | ED.DEP ---
ED Disposition - Plan for ED Patient: Chief Complaint: Complaint Instructions: ED UTI Cystitis Male Prescriptions: Ciprofloxacin [Cipro] 250 mg PO BID #14 tab Referrals: Zaida Mcneil MD [Primary Care Provider] - Oswald Arriola MD [STAFF PHYSICIAN] -
[2017-12-22 17:02] VITALS: BP 134/83; PULSE 66; RESP 16; O2SAT 99
--- NOTE | 2017-12-24 12:22 | ED.DCSUM_ITS ---
- ER Visit Summary Date of Service: 12/24/17 Patient was seen in the emergency department on December 22 and had a urine culture obtained. This has returned and shows MRSA. He was discharged on Cipro. I called and spoke with the patient. He has had his Sky catheter removed and is doing well. He denies any fever, chills, nausea, or vomiting. The MRSA is sensitive to Bactrim. Discussed with the with the patient and he will be placed on this for the next 10 days. This was called into [facility]. Instructed to follow-up his primary care physician for further evaluation. Return to the emergency department for any worsening symptoms. This note was generated with [employer] dictation software. It may contain incorrect words, spelling, and punctuation that were not noted in review of the chart prior to signing ED Disposition - Plan for ED Patient: Disposition: Home or Assisted Living Chief Complaint: Complaint Instructions: ED UTI Cystitis Male Prescriptions: Ciprofloxacin [Cipro] 250 mg PO BID #14 tab Referrals: Zaida Mcneil MD [Primary Care Provider] - Oswald Arriola MD [STAFF PHYSICIAN] -
== END 2017-12-22 17:02 | disposition home or self-care (01) ==
PROVIDERS: Emergency Provider Emergency Medicine; Family Provider Internal Medicine; PCP Internal Medicine
DX: N39.0 Urinary tract infection, site not specified (principal); Z46.6 Encounter for fitting and adjustment of urinary device; E11.9 Type 2 diabetes mellitus without complications; I10 Essential (primary) hypertension; E78.00 Pure hypercholesterolemia, unspecified; N04.9 Nephrotic syndrome with unspecified morphologic changes; I50.9 Heart failure, unspecified
CPT/HCPCS: 51702; 81001; 87077; 87086; 87088; 87186; 99283

== ENCOUNTER → 2017-12-25 11:12 | Outpatient (CLI) | payer MEDICARE, SELFPAY ==
[2017-12-25 13:39] LABS: Albumin, Serum 2.6 g/dL (3.2-5.0); BUN 61 mg/dL (7-18); Calcium,Total 8.7 mg/dL (8.5-10.1); Chloride 102 mmol/L (98-107); Creatinine, Serum 3.05 mg/dL (0.70-1.30); EST Glomerular Filtration Rate 23 mL/min (>60); Est Glom Filt Rate - Afr Amer 28 mL/min (>60); Glucose 292 mg/dL (74-106); Phosphorus 3.9 mg/dL (2.5-4.9); Potassium 4.2 mmol/L (3.5-5.1); Sodium Level 138 mmol/L (136-145)
[2017-12-25 13:44] LABS: Vitamin D,25 Hydroxy 14.3 ng/mL (29.95-100.01)
== END ==
PROVIDERS: Visit Provider Internal Medicine Nephrology
DX: N18.3 Chronic kidney disease, stage 3 (moderate) (principal); E55.9 Vitamin D deficiency, unspecified
CPT/HCPCS: 36415; 80069; 82306

== ENCOUNTER → 2018-02-24 13:36 | Outpatient (CLI) | payer MEDICARE, SELFPAY ==
[2018-02-24 16:47] LABS: BUN 52 mg/dL (7-18); Creatinine, Serum 3.06 mg/dL (0.70-1.30); Glucose 418 mg/dL (74-106)
[2018-02-24 16:48] LABS: Anion Gap 6 (5-15); Calcium,Total 8.5 mg/dL (8.5-10.1); Chloride 106 mmol/L (98-107); EST Glomerular Filtration Rate 23 mL/min (>60); Est Glom Filt Rate - Afr Amer 28 mL/min (>60); Potassium 4.6 mmol/L (3.5-5.1); Sodium Level 138 mmol/L (136-145)
== END ==
PROVIDERS: Family Provider Internal Medicine; PCP Internal Medicine; Visit Provider Nurse Practitioner Family
DX: N17.9 Acute kidney failure, unspecified (principal)
CPT/HCPCS: 36415; 80048; 93225; 93226

== ENCOUNTER 2018-03-02 11:46 | Emergency (ER) | payer MEDICARE, SELFPAY ==
[2018-03-02 11:47] VITALS: BP 134/76; PULSE 77; RESP 17; TEMP 36.8; O2SAT 99; BMI 33.9
--- NOTE | 2018-03-02 12:30 | RAD_ITS ---
STUDY: X-RAY CHEST REASON FOR EXAM: Male, 47 years old. DRY COUGH T EDEMA X 2 WKS TECHNIQUE: PA and lateral views of the chest. COMPARISON: December 10, 2017 FINDINGS: There is improved aeration of the right lower lobe with residual mild consolidation. The appearance is stable compared to December 31, 2012. There is no demonstrated pleural abnormality. There is stable borderline cardiac megaly. Normal mediastinum and reena. Normal visualized pulmonary arteries. Normal visualized aortic arch and descending thoracic aorta. Normal visualized thoracic spine. Normal visualized ribs, clavicles, and shoulders. There is no demonstrated abnormality of the visualized soft tissue structures of the upper abdomen. RAD/Chest PA and Lateral IMPRESSION: No acute disease is demonstrated. Electronically Signed: Torrie Montiel MD at 13:44 EDT , Service support ,
[2018-03-02 12:43] LABS: Absolute Lymphocyte Count 1.38 X10^3/ul (0.83-4.51); Absolute Neutrophil Count 4.7 X10^3/uL (2.0-7.7); Basophil# 0.02 X10^3/uL; Basophil% 0.3 % (0-1); Eosinophil# 0.08 X10^3/uL; Eosinophils% 1.2 % (0-5); Hematocrit 28.9 % (40-54); Hemoglobin 10.4 g/dl (13.0-16.5); Lymphocyte # 1.38 X10^3/ul (4.0); Lymphocyte % 20.2 % (19-41); Mean Corpuscular Hgb 30.3 pg (27.0-32.0); Mean Corpuscular Volume 84.3 fL (80-94); Mean Platelet Vol. 9.2 fl (6.2-12.0); Monocyte# 0.62 X10^3/uL; Monocyte% 9.1 % (0-10); Neutrophil # 4.71 X10^3/uL (2.7-7.7); Neutrophil % 68.9 % (47-70); Platelet Count 239 K/mm3 (150-450); RBC Distribution Width CV 12.2 % (11.6-14.6); RBC Distribution Width SD 36.7 fl (35.1-43.9); Red Blood Count 3.43 M/mm3 (4.6-6.2); White Blood Count 6.8 K/mm3 (4.4-11.0)
[2018-03-02 12:44] LABS: POSITIVE COUNT NO; POSITIVE DIFFERENTIAL NO; POSITIVE MORPHOLOGY NO
[2018-03-02 12:50] LABS: Mucous, Urine 0 SEEN /hpf (<or=2+); Squamous Epithelial Cells - UA 0 SEEN /hpf (0-5); White Blood Cells 0 SEEN /hpf (0-5)
[2018-03-02 12:51] LABS: Color, Urine Yellow (Yellow); Glucose, Dipstick 1000 mg/dl (Normal); Ketone-Dipstick Negative (Negative); Leukocyte Esterase-Dipstick Negative /ul (Negative); Nitrite-Dipstick Negative (Negative); Occult Blood-Urine 25 /ul (Negative); Protein-Dipstick 500 mg/dl (Negative); Urine Bilirubin Dipstick Negative (Negative); Urine Clarity Clear (Clear); Urine Urobilinogen Normal (Normal)
--- NOTE | 2018-03-02 12:51 | ED.VISSUMM ---
- ER Visit Summary Date of Service: 03/02/18 Chief Complaint: Lower extremity swelling and weight gain History of Present Illness: The patient is a 47 M who presents with lower extremity swelling and weight gain that has been getting worse since yesterday. Patient states he gained 8 pounds since yesterday. Patient states he feels swollen from his face to his toes. Patient denies any difficulty breathing. Patient denies any nausea or vomiting. Patient denies any chest pain. Patient denies any headaches. States he does have a history of stage IV kidney disease and diabetes. Physical Examination: Vital signs are stable. Patient is afebrile. Patient is in no acute distress. Oral mucosa is pink and moist. Neck is supple. There is no JVD noted. Heart was regular rate and rhythm. Lungs are clear and equal bilateral. There is good respiratory effort noted. Abdomen is soft nontender. There is 2+ edema of the lower extremities bilaterally. Cranial nerves II through XII are intact. There are no focal motor or sensory deficits noted. Patient was able to ambulate without difficulty. The remaining physical exam is within normal limits. Test Results: Creatinine was elevated at 3.17 which is consistent with prior results. The remaining labs were essentially within normal limits. Emergency Department Course and Treatment: Patient states he has increased his Lasix to 40 mg twice daily today. Patient was instructed to continue doing that for the next 2 days. Patient was instructed to follow-up with his primary care physician in 3-5 days. Patient understood and was agreeable with the plan. All questions were answered. Disposition: Discharged home Impression: Peripheral edema This note was generated with [employer] dictation software. It may contain incorrect words, spelling, and punctuation that were not noted in review of the chart prior to signing ED Disposition - Plan for ED Patient: Disposition: Home or Assisted Living Chief Complaint: Edema Diagnosis: Peripheral edema Instructions: ED Leg Swelling Bilateral Referrals: Zaida Mcneil MD [Primary Care Provider] -
[2018-03-02 12:56] LABS: Anion Gap 5 (5-15); BUN 56 mg/dL (7-18); BUN/Creat Ratio 17.7 RATIO (10-20); Calcium,Total 8.6 mg/dL (8.5-10.1); Chloride 108 mmol/L (98-107); Creatinine, Serum 3.17 mg/dL (0.70-1.30); EST Glomerular Filtration Rate 22 mL/min (>60); Est Glom Filt Rate - Afr Amer 27 mL/min (>60); Estimated Creatinine Clearance 27.27 ml/min; Glucose 206 mg/dL (74-106); Potassium 4.2 mmol/L (3.5-5.1); Sodium Level 139 mmol/L (136-145)
[2018-03-02 12:59] LABS: Bacteria RARE /hpf (None Seen); Fine Granular Cast- Urine 0-5 SEEN /lpf (0-5); Hyaline Cast 0-5 SEEN /lpf (0-5); Red Blood Cells-Urine 0-5 SEEN /hpf (0-5)
[2018-03-02 13:59] VITALS: BP 162/82; PULSE 76; RESP 16; O2SAT 97
[2018-03-02 15:20] VITALS: BP 170/89; PULSE 73; RESP 16; O2SAT 97
--- NOTE | 2018-03-02 15:24 | ED.DCSUM_ITS ---
- ER Visit Summary Date of Service: 03/02/18 Chief Complaint: [] History of Present Illness: The patient is a 47 M [] Physical Examination: [] Test Results: [] Emergency Department Course and Treatment: [] Treatment Plan: [] Disposition: [] Impression: [] This note was generated with [employer] dictation software. It may contain incorrect words, spelling, and punctuation that were not noted in review of the chart prior to signing ED Disposition - Plan for ED Patient: Disposition: Home or Assisted Living Chief Complaint: Edema Diagnosis: Peripheral edema Instructions: ED Leg Swelling Bilateral Referrals: Zaida Mcneil MD [Primary Care Provider] -
[2018-03-02 15:38] VITALS: BP 156/87; PULSE 73; RESP 14; O2SAT 94
== END 2018-03-02 15:39 | disposition home or self-care (01) ==
PROVIDERS: Emergency Provider Emergency Medicine; Family Provider Internal Medicine; PCP Internal Medicine
DX: R60.0 Localized edema (principal); I12.9 Hypertensive chronic kidney disease with stage 1 through stage 4 chronic kidney disease, or unspecified chronic kidney disease; E11.22 Type 2 diabetes mellitus with diabetic chronic kidney disease; N18.4 Chronic kidney disease, stage 4 (severe); Z79.4 Long term (current) use of insulin; Z79.899 Other long term (current) drug therapy
CPT/HCPCS: 71046; 80048; 81001; 85025; 99283

== ENCOUNTER → 2018-07-10 12:09 | Outpatient (CLI) | payer MEDICARE, SELFPAY ==
[2018-07-10 12:54] LABS: Albumin, Serum 2.2 g/dL (3.2-5.0); BUN 42 mg/dL (7-18); BUN/Creat Ratio 10.6 RATIO (10-20); Calcium,Total 7.5 mg/dL (8.5-10.1); Chloride 111 mmol/L (98-107); Creatinine, Serum 3.98 mg/dL (0.70-1.30); EST Glomerular Filtration Rate 17 mL/min (>60); Est Glom Filt Rate - Afr Amer 21 mL/min (>60); Glucose 171 mg/dL (74-106); Potassium 3.7 mmol/L (3.5-5.1); Sodium Level 143 mmol/L (136-145)
[2018-07-10 13:43] LABS: PTHIN 349.8 pg/mL (18.4-80.1)
== END ==
LOC: POLAB3 12:10
PROVIDERS: Family Provider Internal Medicine; PCP Internal Medicine; Visit Provider Internal Medicine Nephrology
DX: N18.4 Chronic kidney disease, stage 4 (severe) (principal)
CPT/HCPCS: 36415; 80069; 83970

== ENCOUNTER → 2018-07-17 08:48 | Outpatient (CLI) | payer MEDICARE, SELFPAY ==
--- NOTE | 2018-07-17 08:53 | VDUE_ITS ---
Reason For Study: CKD - Assess for possible dialysis access placement Right Arm Left Arm Right Cephalic Vein at the wrist Left Cephalic Vein at the wrist measures .18 measures .16 x .17 cm. x .18 cm. Right Cephalic Vein in the forearm Left Cephalic Vein in the forearm measures .24 x .25 cm. measures .21 x .21 cm. Right Cephalic Vein below antecub Left Cephalic Vein below antecub measures .42 x .44 cm. measures .31 x .30 cm. Right Cephalic Vein above antecub Left Cephalic Vein above antecub measures .37 x .40 cm. measures .35 x .39 cm. Right Cephalic Vein mid bicep measures .33 Left Cephalic Vein at mid bicep measures .31 x .33 cm. x .33 cm. Right Cephalic Vein at the shoulder Left Cephalic Vein at the shoulder measures .36 x .36 cm. measures .35 x .40 cm. Right Basilic Vein at the origin Basilic vein at origin measures .38 x .39 measures .46 x .49 cm. cm. Right Basilic Vein mid bicep measures .32 Basilic vein at bicep measures .32 x .32 cm. x .32 cm. Basilic vein above antecub measures .27 Right Basilic Vein above antecub x .27 cm. measures .36 x .36 cm. LT Brachial artery - .45 x .47 cm with a RT Brachial artery - .44 x .47 cm with a velocity of 91.5 cm/s velocity of 97.4 cm/s LT Radial artery - .23 x .27 cm with a RT Radial artery - .25 x .25 cm with a velocity of 97.3 cm/s. velocity of85.6 cm/s. Interpretation Summary Patent and compressible bilateral upper extremity cephalic and basilic veins with dimensions as noted. Adequate arterial flow bilateral radial and brachial arteries. Ordering Physician: Loida Montiel Referring Physician: Zaida Mcneil Performed By: Jessica Murphy RVT ?
== END ==
LOC: CVS 08:49
PROVIDERS: Family Provider Internal Medicine; PCP Internal Medicine; Referring Provider Internal Medicine Nephrology; Visit Provider Internal Medicine Nephrology
DX: Z01.818 Encounter for other preprocedural examination (principal); N18.4 Chronic kidney disease, stage 4 (severe)
CPT/HCPCS: 93970; 93971; G0365

== ENCOUNTER 2018-08-08 10:18 | Day surgery (SDC) | payer MEDICARE, SELFPAY ==
[2018-08-05 10:49] LABS: Hematocrit 30.6 % (40-54); Hemoglobin 10.5 g/dl (13.0-16.5); Mean Corp Hgb Conc 34.3 g/gl (32-36); Mean Corpuscular Hgb 29.2 pg (27.0-32.0); Mean Platelet Vol. 9.4 fl (6.2-12.0); Platelet Count 191 K/mm3 (150-450); RBC Distribution Width CV 13.2 % (11.6-14.6); RBC Distribution Width SD 40.8 fl (35.1-43.9); White Blood Count 4.8 K/mm3 (4.4-11.0)
[2018-08-05 10:50] LABS: Scan Indicated on CBC? Y/N NO
[2018-08-05 11:22] LABS: Anion Gap 9 (5-15); BUN 66 mg/dL (7-18); BUN/Creat Ratio 12.5 RATIO (10-20); Calcium,Total 8.1 mg/dL (8.5-10.1); Chloride 109 mmol/L (98-107); Creatinine, Serum 5.29 mg/dL (0.70-1.30); EST Glomerular Filtration Rate 12 mL/min (>60); Est Glom Filt Rate - Afr Amer 15 mL/min (>60); Glucose 218 mg/dL (74-106); Potassium 4.4 mmol/L (3.5-5.1); Sodium Level 144 mmol/L (136-145)
[2018-08-08 10:42] VITALS: BP 170/86; PULSE 70; RESP 16; TEMP 36.6; O2SAT 100; BMI 34.5
[2018-08-08 11:01] LABS: Bedside Glucose 150 mg/dL (70-110)
--- NOTE | 2018-08-08 11:56 | DCINST_ITS ---
Discharge Diet: Renal Diet Discharge Activity: May Not Drive - for 2-3 days or while taking narcotic pain medications., May Shower, May Take a Tub Bath - in 5 days. Lifting Restrictions: 5 pounds Keep extremity elevated above heart level: - - Keep arm elevated above the heart level for 3 days. Additional Activity Instructions:: Exercise hand vigorously with a stress ball. Call your doctor if your incision/area has: Continuous Slow Oozing, Sudden Increased Bleeding - apply pressure and call your doctor., Increased Pain/ Swelling, Increased Redness, Foul Smelling Discharge Call your doctor if you observe: Fever of 101 or Higher Suture Line Care: Avoid Pulling/Pushing, Avoid Pinching/Bending Cleanse incision/area with: Keep Dressing Clean & Dry Additional Dressing/Incision Instructions:: Of each arm for comfort. You may leave the dressing on for a couple days. You may then remove it. Leave the Steri-Strips in place for 1 additional week. Allergies/Adverse Reactions: Allergies No Known Allergies Allergy (Verified 08/04/18 09:24) Medications to take at Discharge Gabapentin [Neurontin] 300 mg PO TIDCM 07/15/13 Bupropion HCl [Wellbutrin Xl] 300 mg PO DAILY 05/06/17 Atorvastatin Calcium [Lipitor] 20 mg PO QHS 11/19/17 Atenolol [Tenormin (beta elizabeth)] 100 mg PO DAILY 11/28/17 Psyllium [Metamucil] 1 packet PO DAILY PRN PRN packet 12/05/17 aspirin 325 mg tablet 325 mg PO QDAY 12/26/17 acetaminophen 500 mg tablet 1,000 mg PO QDAY PRN tab 01/20/18 tamsulosin 0.4 mg capsule 0.4 mg PO QDAY cap 01/20/18 Amlodipine [Norvasc] 5 mg PO DAILY 03/02/18 Insulin Aspart [Novolog Flexpen] 15 unit SUBCUT TID 03/02/18 cholecalciferol (vitamin D3) 1,000 unit tablet 1,000 unit PO DAILY 07/11/18 furosemide 40 mg tablet 40 mg PO BID tab 07/11/18 hydralazine 25 mg tablet 25 mg PO TID 07/11/18 insulin glargine (U-100) 100 unit/mL (3 mL) subcutaneous pen 10 unit SUBCUT QHS ml 07/11/18 Calcitriol [Rocaltrol] 0.5 mcg PO DAILY 08/04/18 Primary Care Physician: Zaida Mcneil MD [Primary Care Provider] - Test Results: Test results from this visit will be discussed in further detail at your follow- up appointment, if applicable. Please Follow Up With: Satish Phan MD - [phone] When: Call to make an appointment for follow up in 10 days
[2018-08-08] MEDS: Heparin Injection (Vial) 5,000 UNIT/ML VIAL 5000 UNIT (13:35)
[2018-08-08] MEDS: Bupivacaine Mpf 0.5% 30 ML VIAL (13:37)
--- NOTE | 2018-08-08 13:44 | OP.PCM_ITS ---
Problem List (1) Chronic renal failure, stage 4 (severe) Status: Chronic Comment: Is currently following with nephrology. Also following with urology. Is trying to follow his low protein diet and feels he is doing well with it. Report of Operation Date of Procedure: 08/08/18 Pre-Operative Diagnosis: Stage IV chronic renal insufficiency Post-Operative Diagnosis: Same Surgery/Procedure Performed:: Right forearm radiocephalic arteriovenous fistula creation Description of Surgical Findings:: Timeout and informed consent was obtained. 47-year-old gentleman was taken to the operating room. Upper extremity was sterilely prepped and draped. Ultrasound had been used to identify the cephalic vein. 1% lidocaine mixed 50- 50 with 0.5% Marcaine was used as local anesthetic. A total of 6 cc was used. An oblique incision was made in the right radial forearm. Sharp blunt dissection to identify the cephalic vein. Was dissected proximally distally. Then sharp and blunt dissection was used to identify the radial artery. The patient received 8000 units of heparin intravenously. The vein was ligated distally with a Hemoclip. The vein was slightly spatulated and was irrigated with heparinized saline. It was noted to be thick walled. Peripheral vascular clamps were placed on the radial artery. A 11 blade was used to make an arteriotomy and this was extended with Aponte scissors. This was a slightly oblique incision in the artery to allow for better placement of the vein. A end to side anastomosis created with a running 7-0 Prolene. Prior to completion of this good antegrade and retrograde flow. The anastomosis was completed. There was immediately good pulsatile flow within the fistula. The work up will portion of the vein was nicely distended with the more proximal portion of the vein spasm with small. Hemostasis was intact. I felt that this will simply require maturation time. The wound was closed with a deep layer of interrupted 3-0 Vicryl and then a superficial running septic or 4-0 Monocryl. Steri-Strips and Telfa and OpSite dressings applied. Sponge and instrument and needle counts were reported the surgeon be correct. Blood loss was minimal. Specimens none. Drains none. Blood loss minimal. Hand was viable at the completion no apparent complication The patient was taken to the recovery area in satisfactory condition without apparent complication Satish Phan M.D., F.A.C.S. Type of Anesthesia:: Local MAC Anesthesiologist: Rod Graham
[2018-08-08 13:51] VITALS: BP 146/83; BP 170/86; PULSE 75; RESP 16; TEMP 36.4; O2SAT 95
[2018-08-08 13:55] VITALS: BP 132/78; BP 170/86; PULSE 74; RESP 16; O2SAT 95
[2018-08-08 14:00] VITALS: BP 157/80; BP 170/86; PULSE 73; RESP 16; O2SAT 100
[2018-08-08 14:06] VITALS: BP 133/76; BP 170/86; PULSE 73; RESP 16; TEMP 36.3; O2SAT 99
[2018-08-08 15:22] VITALS: BP 170/86
--- OUTSIDE RECORDS SUMMARY | 2018-10-03 05:22 | XMS RPT_ITS ---
:1970 Author Organization OHIP Support Name Relationship Address Phone D Unavailable Unavailable Unavailable DEA, CHRISTINA Unavailable [address] + [place] [address] D Unavailable Unavailable Unavailable DEA, CHRISTINA Unavailable [address] + [place] [address] D Unavailable Unavailable Unavailable DEA, CHRISTINA Unavailable [address] + [place] [address] D Unavailable Unavailable Unavailable DEA, CHRISTINA Unavailable [address] + [place] [address] D Unavailable Unavailable Unavailable DEA, CHRISTINA Unavailable [address] + [place] [address] D Unavailable Unavailable Unavailable DEA, CHRISTINA Unavailable [address] + [place] [address] D Unavailable Unavailable Unavailable DEA, CHRISTINA Unavailable [address] + [place] [address] D Unavailable Unavailable Unavailable DEA, CHRISTINA Unavailable [address] + [place] [address] D Unavailable Unavailable Unavailable DEA, CHRISTINA Unavailable [address] + [place] [address] D Unavailable Unavailable Unavailable DEA, CHRISTINA Unavailable [address] + [place] [address] D Unavailable Unavailable Unavailable DEA, CHRISTINA Unavailable [address] + [place] [address] D Unavailable Unavailable Unavailable DEA, CHRISTINA Unavailable [address] + [place] [address] D Unavailable Unavailable Unavailable DEA, CHRISTINA Unavailable [address] + [place] [address] D Unavailable Unavailable Unavailable DEA, CHRISTINA Unavailable [address] + [place] [address] D Unavailable Unavailable Unavailable DEA, CHRISTINA Unavailable [address] + [place] [address] D Unavailable Unavailable Unavailable DEA, CHRISTINA Unavailable [address] + [place] [address] D Unavailable Unavailable Unavailable DEA, CHRISTINA Unavailable [address] + [place] [address] D Unavailable Unavailable Unavailable DEA, CHRISTINA Unavailable [address] + [place] [address] D Unavailable Unavailable Unavailable DEA, CHRISTINA Unavailable [address] + [place] [address] D Unavailable Unavailable Unavailable DEA, CHRISTINA Unavailable [address] + [place] [address] D Unavailable Unavailable Unavailable DEA, CHRISTINA Unavailable [address] + [place] [address] D Unavailable Unavailable Unavailable DEA, CHRISTINA Unavailable [address] + [place] [address] D Unavailable Unavailable Unavailable DEA, CHRISTINA Unavailable [address] + [place] [address] D Unavailable Unavailable Unavailable DEA, CHRISTINA Unavailable [address] + [place] [address] D Unavailable Unavailable Unavailable DEA, CHRISTINA Unavailable [address] + [place] [address] D Unavailable Unavailable Unavailable DEA, CHRISTINA Unavailable [address] + [place] [address] D Unavailable Unavailable Unavailable DEA, CHRISTINA Unavailable [address] + [place] [address] D Unavailable Unavailable Unavailable DEA, CHRISTINA Unavailable [address] + [place] [address] D Unavailable Unavailable Unavailable DEA, CHRISTINA Unavailable [address] + [place] [address] D Unavailable Unavailable Unavailable DEA, CHRISTINA Unavailable [address] + [place] [address] D Unavailable Unavailable Unavailable DEA, CHRISTINA Unavailable [address] + [place] [address] D Unavailable Unavailable Unavailable DEA, CHRISTINA Unavailable [address] + [place] [address] D Unavailable Unavailable Unavailable DEA, CHRISTINA Unavailable [address] + [place] [address] D Unavailable Unavailable Unavailable DEA, CHRISTINA Unavailable [address] + [place] [address] D Unavailable Unavailable Unavailable DEA, CHRISTINA Unavailable [address] + [place] [address] D Unavailable Unavailable Unavailable DEA, CHRISTINA Unavailable [address] + [place] [address] D Unavailable Unavailable Unavailable DEA, CHRISTINA Unavailable [address] + [place] [address] D Unavailable Unavailable Unavailable DEA, CHRISTINA Unavailable [address] + [place] [address] D Unavailable Unavailable Unavailable DEA, CHRISTINA Unavailable [address] + [place] [address] D Unavailable Unavailable Unavailable DEA, CHRISTINA Unavailable [address] + [place] [address] D Unavailable Unavailable Unavailable DEA, CHRISTINA Unavailable [address] + [place] [address] D Unavailable Unavailable Unavailable DEA, CHRISTINA Unavailable [address] + [place] [address] D Unavailable Unavailable Unavailable DEA, CHRISTINA Unavailable [address] + [place] [address] D Unavailable Unavailable Unavailable DEA, CHRISTINA Unavailable [address] + [place] [address] D Unavailable Unavailable Unavailable DEA, CHRISTINA Unavailable [address] + [place] [address] D Unavailable Unavailable Unavailable DEA, CHRISTINA Unavailable [address] + [place] [address] D Unavailable Unavailable Unavailable DEA, CHRISTINA Unavailable [address] + [place] [address] D Unavailable Unavailable Unavailable DEA, CHRISTINA Unavailable [address] + [place] [address] D Unavailable Unavailable Unavailable DEA, CHRISTINA Unavailable [address] + [place] [address] D Unavailable Unavailable Unavailable DEA, CHRISTINA Unavailable [address] + [place] [address] D Unavailable Unavailable Unavailable DEA, CHRISTINA Unavailable [address] + [place] [address] D Unavailable Unavailable Unavailable DEA, CHRISTINA Unavailable [address] + [place] [address] D Unavailable Unavailable Unavailable DEA, CHRISTINA Unavailable [address] + [place] [address] D Unavailable Unavailable Unavailable DEA, CHRISTINA Unavailable [address] + [place] [address] D Unavailable Unavailable Unavailable DEA, CHRISTINA Unavailable [address] + [place] [address] D Unavailable Unavailable Unavailable DEA, CHRISTINA Unavailable [address] + [place] [address] D Unavailable Unavailable Unavailable EDA, CHRISTINA Unavailable [address] + [place] [address] D Unavailable Unavailable Unavailable DEA, CHRISTINA Unavailable [address] + [place] [address] D Unavailable Unavailable Unavailable DEA, CHRISTINA Unavailable [address] + [place] [address] D Unavailable Unavailable Unavailable DEA, CHRISTINA Unavailable [address] + [place] [address] D Unavailable Unavailable Unavailable DEA, CHRISTINA Unavailable [address] + [place] [address] D Unavailable Unavailable Unavailable DEA, CHRISTINA Unavailable [address] + [place] [address] D Unavailable Unavailable Unavailable DEA, CHRISTINA Unavailable [address] + [place] [address] D Unavailable Unavailable Unavailable DEA, CHRISTINA Unavailable [address] + [place] [address] D Unavailable Unavailable Unavailable DEA, CHRISTINA Unavailable [address] + [place] [address] D Unavailable Unavailable Unavailable DEA, CHRISTINA Unavailable [address] + [place] [address] Care Team Providers Name Role Phone IRMA VILLA ([facility]) Referring Unavailable OLDER, FRANCES ([facility]) Attending Unavailable GANTA, ANDERSON Referring Unavailable OLDER, FRANCES ([facility]) Referring Unavailable OLDER, FRANCES ([facility]) Referring Unavailable TIMMY CHAPPELL (CVIR TECH) Attending Unavailable OLDER, FRANCES (CUSTOM STUDIO COORDINATOR) Referring Unavailable GANTA, ANDERSON Attending Unavailable GANTA, ANDERSON Referring Unavailable GANTA, ANDERSON Attending Unavailable IRMA VILLA ([facility]) Attending Unavailable GANTA, ANDERSON Attending Unavailable IRMA VILLA ([facility]) Attending Unavailable GANTA, ANDERSON Referring Unavailable FELICITA BEARDEN (PT) Attending Unavailable IRMA VILLA ([facility]) Referring Unavailable GANTA, ANDERSON Attending Unavailable GANTA, ANDERSON Referring Unavailable OLDER, FRANCES (CUSTOM STUDIO COORDINATOR) Referring Unavailable GANTA, ANDERSON Referring Unavailable IRMA VILLA ([facility]) Attending Unavailable GANTA, ANDERSON Attending Unavailable GANTA, ANDERSON Referring Unavailable Oscar Ag Admitting Unavailable Kotsonis, Oscar F Attending Unavailable Ganta, Anderson Primary Care Unavailable Kotsonis, Oscar F Consulting Unavailable Kotsonis, Oscar F Admitting Unavailable Paintsil, Stehekin Attending [facility]available [facility] Unavailable Dinesh, Loida Consulting Unavailable Paintsil, Stehekin Consulting Unavailable Kotsonis, Oscar F Admitting Unavailable Paintsil, Stehekin Attending Unavailable Ganta, Anderson Primary Care Unavailable Dinesh, Loida Consulting Unavailable Paintsil, Stehekin Consulting Unavailable Kotsonis, Oscar F Admitting Unavailable Paintsil, Stehekin Attending Unavailable [facility], Anderson Primary Care Unavailable Dinesh, Loida Consulting Unavailable Paintsil, Stehekin Consulting Unavailable Kotsonis, Oscar F Admitting Unavailable Ramon, Sadiq Attending Unavailable Ganta, Anderson Primary Care Unavailable Dinesh, Loida Consulting Unavailable Ramon, Sadiq Consulting Unavailable Dinesh, Loida Attending Unavailable Ganta, Anderson Primary Care Unavailable [facility] Primary Care Unavailable Max Montieline Attending Unavailable Ganta, Anderson Primary Care Unavailable Koram, Shruti Roma Admitting Unavailable Koram, Shruti Roma Attending Unavailable Paintsil, Stehekin Admitting Unavailable Ramon, Sadiq Attending Unavailable [facility], [facility] Primary [facility] Unavailable Dinesh, Loida Consulting Unavailable Kyrie Garsia Consulting Unavailable Ramon, Sadiq Consulting Unavailable Mayo Miguel Attending Unavailable Isamar Smith Referring Unavailable DineshLoida Attending Unavailable [facility], Anderson Primary Care Unavailable Aj Faith Attending Unavailable Ganta, Anderson Referring Unavailable Ganta, [facility] Primary Care Unavailable Satish Phan Attending Unavailable Dinesh, Loida Referring Unavailable Satish Phan Attending Unavailable Dinesh, Loida Referring Unavailable Rose Marie Abrams Attending Unavailable Jenna Bedoya Attending Unavailable Ganta, Anderson Referring Unavailable Norah Adams CVIR TECH-C Attending Unavailable Ganta, Anderson Referring Unavailable Tylor Rudd Attending Unavailable Vinnie Lima Referring Unavailable Mary Johnson Attending Unavailable Loida Montiel Attending Unavailable BlaireTylor young Attending Unavailable Sarah, Isamar Referring Unavailable Ganta, Anderson Primary Care Unavailable Lg Hinojosa Attending Unavailable Vj Cabral Attending Unavailable Ganta, Anderson Referring Unavailable Norah Adams CVIR TECH-C Attending Unavailable Ganta, Anderson Referring Unavailable Ganta, Anderson Primary Care Unavailable Yonathan, Kayla Admitting Unavailable Sementi, Tammie Attending Unavailable [facility] Primary Care Unavailable Sementi, Tammie Consulting Unavailable Yonathan, Kayla Admitting Unavailable Sementi, Tammie Attending Unavailable [facility] Primary Care Unavailable Sementi, Tammie Consulting Unavailable [facility], [facility] Attending Unavailable [facility] Primary Care Unavailable Yonathan, Kayla Admitting Unavailable Sementi, Tammie Attending Unavailable [facility] Primary Care Unavailable Sementi, Tammie Consulting Unavailable Mary Johnson Attending Unavailable Yonathan, Kayla Admitting Unavailable [facility] Primary Care Unavailable Yonathan, Kayla Consulting Unavailable John Darnell Attending Unavailable [facility] Primary Care Unavailable Yonathan, Kayla Admitting Unavailable Sementi, Tammie Attending Unavailable Dinesh, Olida Consulting Unavailable Paintsil, Stehekin Admitting Unavailable Ramon, Sadiq Attending Unavailable [facility] Primary Care Unavailable Dinesh, Loida Consulting Unavailable Ady, Kyrie Consulting Unavailable Garcia, Vj Consulting Unavailable Ramon, Sadiq Consulting Unavailable Paintsil, Stehekin Admitting Unavailable Ramon, Sadiq Attending Unavailable [facility] Primary Care Unavailable Dinesh, Loida Consulting Unavailable Ady, Kyrie Consulting Unavailable Garcia, Vj Consulting Unavailable Ramon, Sadiq Consulting Unavailable Paintsil, Stehekin Admitting Unavailable Joao Hayes D.O. Attending Unavailable [facility] Care Unavailable Dinesh, Loida Consulting Unavailable Ady, Kyrie Consulting Unavailable Garcia, Vj Consulting Unavailable Ramon, Sadiq Consulting Unavailable Paintsil, Stehekin Admitting Unavailable Yari Stein NP-C Attending Unavailable [facility] Primary Care Unavailable Dinesh, Loida Consulting Unavailable Ady, Kyrie Consulting Unavailable Garcia, Vj Consulting Unavailable Ramon, Sadiq Consulting Unavailable Paintsil, Stehekin Admitting Unavailable Ramon, Sadiq Attending Unavailable [facility] Primary Care Unavailable Dinesh, Loida Consulting Unavailable Ady, Kyrie Consulting Unavailable Ramon, Sadiq Consulting Unavailable Paintsil, Stehekin Admitting Unavailable Joao Hayes D.O. Attending Unavailable [facility] Primary Care Unavailable Dinesh, Loida Consulting Unavailable Ady, Kyrie Consulting Unavailable Ramon, Sadiq Consulting Unavailable Paintsil, Stehekin Admitting Unavailable Yari Stein CVIR TECH-C Attending Unavailable [facility] Primary Care Unavailable Dinesh, Loida Consulting Unavailable Ady, Kyrie Consulting Unavailable Ramon, Sadiq Consulting Unavailable Paintsil, Stehekin Admitting Unavailable Joao Hayes D.O. Attending Unavailable [facility] Unavailable Dinesh, Loida Consulting Unavailable Ady, Kyrie Consulting Unavailable Ramon, Sadiq Consulting Unavailable Paintsil, Stehekin Admitting Unavailable Yari Stein CVIR TECH-C Attending Unavailable [facility] Unavailable Dinesh, Loida Consulting Unavailable Ady, Kyrie Consulting Unavailable Ramon, Sadiq Consulting Unavailable Paintsil, Stehekin Admitting Unavailable Ramon, Sadiq Attending Unavailable [facility] Unavailable Dinesh, Loida Consulting Unavailable Ady, Kyrie Consulting Unavailable Ramon, Sadiq Consulting Unavailable Paintsil, Stehekin Admitting Unavailable Ady, Kyrie Attending Unavailable [facility] Unavailable Dinesh, Loida Consulting Unavailable Ady, Kyrie Consulting Unavailable Ramon, Sadiq Consulting Unavailable Paintsil, Stehekin Admitting Unavailable Yari Stein CVIR TECH-C Attending Unavailable [facility] Unavailable Dinesh, Loida Consulting Unavailable Ady, Kyrie Consulting Unavailable Ramon, Sadiq Consulting Unavailable Paintsil, Stehekin Admitting Unavailable Paintsil, Stehekin Attending Unavailable [facility] Unavailable Dinesh, Loida Consulting Unavailable Ady, Kyrie Consulting Unavailable Paintsil, Stehekin Consulting Unavailable Paintsil, Stehekin Admitting Unavailable Paintsil, Stehekin Attending Unavailable [facility] Unavailable Dinesh, Loida Consulting Unavailable Paintsil, Stehekin Consulting Unavailable Paintsil, Stehekin Admitting Unavailable Paintsil, Stehekin Attending Unavailable [facility] Unavailable Dinesh, Loida Consulting Unavailable Paintsil, Stehekin Consulting Unavailable Paintsil, Stehekin Admitting Unavailable Paintsil, Stehekin Attending Unavailable [facility] Unavailable Dinesh, Loida Consulting Unavailable Paintsil, Stehekin Consulting Unavailable [facility] Unavailable Paintsil, Stehekin Admitting Unavailable Dinesh, Loida Consulting Unavailable Ramon, Sadiq Attending Unavailable Ady, Kyrie Consulting Unavailable Vj Garcia Consulting Unavailable White, Isamar Admitting Unavailable Sementi, Tammie Attending Unavailable [facility] Unavailable Mery Mcclure.O. Consulting Unavailable Dinesh, Loida Consulting Unavailable Sementi, Tammie Consulting Unavailable White, Isamar Admitting Unavailable Joao Brown, D.O. Attending Unavailable Ganta, Anderson Primary Care Unavailable Mery Mcclure.O. Consulting Unavailable Dinesh, Loida Consulting Unavailable Sementi, Tammie Consulting Unavailable White, Isamar Admitting Unavailable Sementi, Tammie Attending Unavailable Ganta, Anderson Primary Care Unavailable Joao Freddy, D.O. Consulting Unavailable Dinesh, Loida Consulting Unavailable Sementi, Tammie Consulting Unavailable White, Isamar Admitting Unavailable Joao Freddy D.O. Attending Unavailable Ganta, Anderson Primary Care Unavailable Joao Freddy, D.O. Consulting Unavailable Sementi, Tammie Consulting Unavailable White, Isamar Admitting Unavailable White, Isamar Attending Unavailable Ganta, Anderson Primary Care Unavailable White, Isamar Consulting Unavailable Ganta, Anderson Primary Care Unavailable White, Isamar Admitting Unavailable Joao Brown, D.O. Consulting Unavailable Sementi, Tammie Attending Unavailable Dinesh, Loida Consulting Unavailable Oscar Ag F Admitting Unavailable Minerva Sexton PA-C Attending Unavailable Ganta, [facility] Primary Care Unavailable Dinesh, Loida Consulting Unavailable Ramon, Sadiq Consulting Unavailable Ganta, Anderson Primary Care Unavailable Oscar Ag F Admitting Unavailable Dinesh, Loida Consulting Unavailable Ramon, Sadiq Attending Unavailable Cebul, Satish Attending Unavailable Cebul, Satish Referring Unavailable Ganta, Anderson Primary Care Unavailable Dniesh, Loida Attending Unavailable Dinesh, Loida Referring Unavailable Ganta, Anderson Primary Care Unavailable Dinesh, Loida Attending Unavailable Ganta, Anderson Primary Care Unavailable Dinesh, Loida Attending Unavailable Ganta, Anderson Primary Care Unavailable Dinesh, Loida Attending Unavailable Ganta, Anderson Primary Care Unavailable Vj Cabral Attending Unavailable Norah AdamsC Attending Unavailable Ganta, Anderson Referring Unavailable Ganta, Anderson Primary Care Unavailable Byron Saldana Attending Unavailable Dinesh, Loida Attending Unavailable Ganta, Anderson Primary Care Unavailable Aj Faith Attending Unavailable Aj Faiht H Referring Unavailable Ganta, Anderson Primary Care Unavailable Dinesh, Loida Consulting Unavailable PROBLEMS PROBLEMS DATE TYPE CONDITION / CODE ATTENDING STATUS SOURCE 08/08/2018 Unknown G89.18 - Other acute Satish Phan postprocedural pain / Community G89.18(ICD-10) Hospital Repository 08/12/2018 Unknown N18.4 - Chronic kidney CebulSatish Active [facility] disease, stage 4 Community (severe) / Hospital N18.4(ICD-10) Repository 07/16/2018 Active Other forms of dyspnea NA Active [facility] / R06.09(ICD-10) Clinic Main [place] Repository 07/16/2018 Active Other abnormalities of NA Active [place] breathing / Clinic Main R06.89(ICD-10) [facility] Repository 06/11/2018 Active Unknown / UNK(Unknown) FELICITA BEARDEN Active [facility] (PT) [facility] [place] Repository 05/19/2018 Active Other hyperlipidemia / NA Active [facility] E78.4(ICD-10) [facility] [place] Repository 06/12/2016 Active Type 2 diabetes NA Active [place] mellitus with Clinic Main unspecified [facility] complications / Repository E11.8(ICD-10) 06/12/2016 Active Type 2 diabetes NA Active [place] mellitus with Clinic Main hyperglycemia / [facility] E11.65(ICD-10) 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 / Clinic Main Z79.4(ICD-10) [facility] Repository 05/19/2018 Active Hypokalemia / NA Active [facility] E87.6(ICD-10) Clinic Main [place] Repository 02/24/2018 Unknown I49.1 - Atrial Roof, Aj Hanna Active [facility] premature Community depolarization / Hospital I49.1(ICD-10) Repository 02/24/2018 Unknown N17.9 - Acute kidney Roof, Aj Hanna Active [facility] failure, unspecified / Community N17.9(ICD-10) Hospital Repository 01/21/2018 Unknown E11.22 - Type 2 ShoNorah suarez Active [facility] diabetes mellitus with J CVIR TECH-C Community diabetic chronic Hospital kidney disease / Repository E11.22(ICD-10) 01/17/2018 Active Personal history of NA Active [facility] other diseases of the Clinic Other nervous system and [facility] sense organs / Repository Z86.69(ICD-10) 12/17/2017 Unknown E11.9 - Type 2 ShoRandy suarezie Active [facility] diabetes mellitus J CVIR TECH-C Community without complications Hospital / E11.9(ICD-10) Repository 12/13/2017 Unknown Z51.89 - Encounter for Ewa Anderson Active [facility] other specified Community aftercare / Hospital Z51.89(ICD-10) Repository 12/31/2017 Unknown R06.02 - Shortness of Blaire, Tylor Active [facility] breath / Community R06.02(ICD-10) Hospital Repository 12/31/2017 Unknown R94.31 - Abnormal BlaireTylor young Active [facility] electrocardiogram Community [ECG] [EKG] / Hospital R94.31(ICD-10) Repository 12/11/2017 Unknown J96.01 - Acute Sadiq Navarro Active [facility] respiratory failure Community with hypoxia / Hospital J96.01(ICD-10) Repository 12/23/2017 Unknown I49.3 - Ventricular BlaireTylor young Active [facility] premature Community depolarization / Hospital I49.3(ICD-10) Repository 12/17/2017 Unknown I50.31 - Acute Mayo Miguel Active [facility] diastolic (congestive) Community heart failure / Hospital I50.31(ICD-10) Repository 10/28/2017 Active Left upper quadrant NA Active [place] pain / R10.12(ICD-10) Clinic Main [place] Repository 10/28/2017 Active Vomiting without NA Active [place] nausea / Clinic Main R11.11(ICD-10) [facility] Repository 10/28/2017 Active Noninfective NA Active [facility] gastroenteritis and Clinic Main colitis, unspecified / [facility] K52.9(ICD-10) Repository PROCEDURES PROCEDURES No Procedure Records FoundRESULTS RESULTS EMERGENCY DEPARTMENT Observed: 08/27/2018 Status: F Source: [facility] SUMMARY 1:57 AM [facility] REPOSITORY [facility] Medical Records Department [address] [facility] [place] [address] Emergency Department Summary 08/27/18 0134 MR#: [id number] Acct: [id number] Name: WILLIAMS BURGOS Rep #: [id number] : 1970 47 From: Allyssa Johnson MD PCP: Anderson Gaston MD Status: ADM [facility] - ER Visit Summary Date of Service: 08/26/18 Chief Complaint: Shortness of breath, hemoptysis History of Present Illness: The patient is a 47 M with a history of chronic renal failure, diabetes, hypertension, high cholesterol, CHF. Patient was admitted August 21 for anasarca and renal failure. Today he had some nasal congestion. He states he sniffed and spit in the toilet and noted some blood in the mucus. He is also complaining of increased shortness of breath just from walking room to room. He states when he was in the hospital he was able to walk the halls of the hospital without difficulty. Patient is to have a dialysis line placed this week. He has not noted fever or significant change in chronic cough. Physical Examination: Vital signs unremarkable. Patient sitting upright in bed no acute distress. He speaking full sentences. Heart is regular rate and rhythm. Lungs sounds are slightly diminished throughout. Abdomen is soft nontender. Test Results: Two-view chest x-ray reveals small left pleural effusion. Bibasilar pneumonia is read by radiology. CBC was normal white count with a hemoglobin of 9.8. This is consistent with his prior values. Chemistry studies significant for a BUN of 78 and creatinine is 6.49. This again is consistent with his baseline. His BNP today is 810, slightly up from his last admission. Emergency Department Course and Treatment: On repeat evaluation the patient is on 2 L nasal cannula. Nurse reports his sat dropped to 88%. She tried to reposition the patient and have him take deep breaths without improvement. At this time he is given a dose of Lasix and nitro paste is placed on his chest. As he is currently requiring oxygen he will require admission overnight. I spoken with the hospitalist. Treatment Plan: [] Disposition: Admit Impression: 1. CHF 2. Chronic renal failure This note was generated with [employer] dictation software. It may contain incorrect words, spelling, and punctuation that were not noted in review of the chart prior to signing ED Disposition - Plan for ED Patient: Chief Complaint: Shortness of Breath What to do if you have Problems For any increased pain, shortness of breath, bleeding, nausea or vomiting, chest pain, or any unexpected problems, contact your Primary Care Provider. Call [facility] ([phone]) or report to the closest Emergency Room. Call 911 if necessary. 08/27/18 0157 <Electronically signed by Allyssa Johnson MD> Date Allyssa Johnson MD Cosigner Signature (If Indicated): Date CC: Anderson Gaston MD BEDSIDE GLUCOSE Collected: 08/26/2018 Status: F Source: [facility] 10:11 PM [facility] REPOSITORY TYPE CODE TESTS RESULT OUT OF REFERENCE UNITS RANGE LAB L501.080 70-110 mg/dL High BEDSIDE GLU 177 Result Comment: MANAGEMENT OF PATIENT CARE PER NURSING PROTOCOL Performed By: #### L501.080 #### [facility] Point of Care [address] [place] [address] PROTHROMBIN TIME W/INR Collected: 08/26/2018 Status: F Source: [facility] 5:50 PM [facility] REPOSITORY Order Comment: REDRAW. PREVIOUS SPECIMEN REJECTED DUE TO QNS. 08/26/181718 Clementina Garcia. TYPE CODE TESTS RESULT OUT OF RANGE REFERENCE UNITS LAB L300.4150 11.7-14.9 SECONDS Normal PROTIME 13.1 LAB L300.4200 Normal INR 1.0 Performed By: #### L300.3900, L300.4310 #### [facility] [address] [place], [address] PARTIAL THROMBOPLAST Collected: 08/26/2018 Status: F Source: [facility] TIME 5:50 PM [facility] REPOSITORY Order Comment: REDRAW. PREVIOUS SPECIMEN REJECTED DUE TO QNS. 08/26/181718 Clementina Garcia. TYPE CODE TESTS RESULT OUT OF RANGE REFERENCE UNITS LAB L300.4310 24.1-36.2 Seconds Normal PTT 32.6 Performed By: #### L300.3900, L300.4310 #### [facility] [address] [place], [address] CBC W/DIFF, AUTOMATED Collected: 08/26/2018 Status: F Source: [facility] 4:50 PM [facility] REPOSITORY TYPE CODE TESTS RESULT OUT OF RANGE REFERENCE UNITS LAB L100.1000 4.4-11.0 K/mm3 Normal WBC 7.7 LAB L100.1200 4.6-6.2 M/mm3 Low RBC 3.28 LAB L100.1300 13.0-16.5 g/dl Low HGB 9.8 LAB L100.1400 40-54 % Low HCT 29.3 LAB L100.1500 80-94 fL Normal MCV 89.3 LAB L100.1600 27.0-32.0 pg Normal MCH 29.9 LAB L100.1700 32-36 g/gl Normal MCHC 33.4 LAB L100.1810 11.6-14.6 % Normal RDW CV 13.5 LAB L100.1820 35.1-43.9 fl High RDW SD 44.3 LAB L100.1900 150-450 K/mm3 Normal PLT 209 LAB L100.2000 6.2-12.0 fl Normal MPV 9.4 LAB L100.2100 47-70 % High NEUT% 75.0 LAB L100.2200 19-41 % Low LY% 16.5 LAB L100.2300 0-10 % Normal MONO% 6.9 LAB L100.2400 0-5 % Normal EO% 1.3 LAB L100.2500 0-1 % Normal BASO% 0.3 LAB L100.2550 0.0-0.9 % Normal IM GRAN % 0.000 Result Comment: IG% - Immature Granulocytes (promyelocytes, myelocytes and metamyelocytes) > 1% indicates that a LEFT SHIFT is Present. LAB L100.2620 2.0-7.7 X10 3/uL Normal Absolute Neut 5.7 LAB L100.2720 0.83-4.51 X10 3/ul Normal Absolute Lymph 1.26 Performed By: #### L100.0100 #### [facility] [address] [facility] [place], [place], [address] BASIC METABOLIC Collected: 08/26/2018 Status: F Source: [facility] PROFILE (BMP) 4:50 PM [facility] REPOSITORY TYPE CODE TESTS RESULT OUT OF RANGE REFERENCE UNITS LAB L501.0100 74-106 mg/dL Normal GLU 105 Result Comment: Fasting Glucose result from 100 to 125 mg/dL suggests IMPAIRED HOMEOSTASIS per A.D.A. criteria. Please note revised GLUCOSE reference range effective 2017. LAB L501.1000 7-18 mg/dL High BUN 78 LAB L501.1100 0.70-1.30 mg/dL High CREAT,SERUM 6.49 Result Comment: The validity of the calculated GFR AND GFRAA in patients over 70 years has not been determined. Clinical correlation is essential. LAB L501.1110 >60 mL/min Low EST GFR 10 Result Comment: Non- GFR Calc LAB L501.1115 >60 mL/min Low EST GFR - AA 12 Result Comment: GFR Calc LAB L501.1255 ml/min Normal Estimated CRCL 13.32 LAB L501.1300 10-20 RATIO Normal BUN/CRE 12.0 LAB L501.2200 8.5-10 mg/dL Low .1 CA 8.1 LAB L501.5300 136-14 mmol/L Normal 5 NA 143 LAB L501.5600 3.5-5. mmol/L Normal 1 K 5.1 LAB L501.5900 98-107 mmol/L High CL 112 LAB L501.6100 21.0-3 mmol/L Normal 2.0 CO2 21.0 LAB L501.6200 5-15 Normal GAP 10 Performed By: #### L500.2500 #### [facility] [address] [place], [address] BNP,B-TYPE NATRIURETIC Collected: 08/26/2018 Status: F Source: [facility] [place] 4:50 PM [facility] REPOSITORY TYPE CODE TESTS RESULT OUT OF RANGE REFERENCE UNITS LAB L503.6620 0-100 pg/mL High B-TYPE 810.1 ZARI PEP Performed By: #### L503.6620 #### [facility] [address] [place], [address] CHEST PA AND LATERAL Observed: 08/26/2018 Status: F Source: [facility] 4:33 PM [facility] REPOSITORY [facility] Imaging Services [address] [place] [address] Chest PA and Lateral MR#: [id number] Acct: [id number] Name: WILLIAMS BURGOS Mery Rep #: [id number] : 1970 M 47 From: Anita Cerna MD PCP: Anderson Gaston MD Status: REG ER Study: Chest PA and Lateral Date of Exam: 08/26/18 Exam# [id number] Ordering Dr: Allyssa Johnson MD STUDY: X-RAY CHEST REASON FOR EXAM: Male, 47 years old. Dyspnea, hemoptysis. TECHNIQUE: PA and lateral chest. COMPARISON: 08/21/2018. FINDINGS: There is a small left pleural effusion. Mild opacities are noted in the lung bases, suspicious for pneumonia. Upper lung zones are clear. There is mild cardiac enlargement. Normal mediastinum and reena. Normal visualized pulmonary arteries. Normal visualized aortic arch and descending thoracic aorta. Normal visualized thoracic spine. Normal visualized ribs, clavicles, and shoulders. There is no demonstrated abnormality of the visualized soft tissue structures of the upper abdomen. RAD/Chest PA and Lateral IMPRESSION: 1. Small left pleural effusion. 2. Bibasilar pneumonia. Electronically Signed: Anita Cerna MD at 17:59 EST Tel , Service support , CC: Anderson Gaston MD; Allyssa Johnson MD Hand Packager: Signed DISCHARGE SUMMARY Observed: 08/25/2018 Status: F Source: [facility] 5:13 PM [facility] REPOSITORY [facility] Medical Records Department [address] [place] [id number] Discharge Summary 08/25/18 1653 MR#: [id number] Acct: [id number] Name: WILLIAMS BURGOS Rep #: [id number] : 1970 47 From: Sadiq Navarro MD PCP: Anderson Gaston MD Status: ADM IN Location: [place] [address] Discharge Date and Diagnosis Date of Admission: 08/21/18 Date of Discharge: 08/25/18 - Primary Discharge Diagnosis CKD stage V with nephrotic range proteinuria secondary to diabetic nephropathy Bilateral lower extremity edema and anasarca secondary to CKD stage V - Secondary Discharge Diagnosis Chronic Problems (Last Reviewed 08/25/18 @ 11:25 by Minerva Sexton PA-C) Chronic renal failure, stage 5 (Chronic) Ectopic cardiac beats (Chronic) Anemia of chronic renal failure, stage 4 (severe) (Chronic) Chronic renal failure, stage 4 (severe) (Chronic) Is currently following with nephrology. Also following with urology. Is trying to follow his low protein diet and feels he is doing well with it. Obesity (BMI 30-39.9) (Chronic) Noncompliance (Chronic) Diabetic neuropathy (Chronic) Diabetic nephropathy (Chronic) Diabetic retinopathy (Chronic) HTN (hypertension) (Chronic) HLD (hyperlipidemia) (Chronic) Blind left eye (Chronic) Diabetes mellitus type II, uncontrolled (Chronic) Dx : 1990 Discussed with patient need to check BG in pairs, learn carb counting and then we can determine I/C ratio for him at last visit. is doing well with his diet. He stopped his basalglar. He is willing to start again at lower dose and titrate back up. He will start at 10 units and increase by 2-3 units every 3 days if he is waking with higher BG than he went to bed with. I have also decrease his correction to 1-50 so that he is not going low after correction. I have given he an alternative correction scale to use if he needs less correction when he begins with higer dose of basaglar and finds his current correction may be too strong. On statin On asa Anxiety and depression (Chronic) GERD (gastroesophageal reflux disease) (Chronic) Chewing tobacco nicotine dependence (Chronic) History of acute myocardial infarction (Chronic) Hospital Course and Treatment Operations: None Summary of Care Provided: The patient is a 47 year old male with past medical history of CKD stage IV, nephrotic range proteinuria from diabetic nephropathy, hypertension, hyperlipidemia comes in with shortness of breath and weight gain. 1. CKD stage V, nephrotic proteinuria secondary to diabetic nephropathy with anasarca: Patient was seen by Dr. Montiel. Discussed with her. Continue Lasix 80 mg twice daily. Continue calcitriol and PhosLo. Discontinue Sky catheter. Low sodium and potassium diet. Follow-up appointment with Dr. Montiel on September 03 at 10 AM. Patient was seen by general surgery Dr. Satish Phan and follow- up on for outpatient dialysis tunnel catheter. Patient had 2D echo which shows EF 65% with normal diastolic. No regional wall motion abnormality. Moderate concentric LVH. Heart failure ruled out. 2 Acute hyperkalemia: K5.6. Repeat K5.2 after Kayexalate. Discussed with Dr. Montiel and okay for discharge. 3. Hypertensive urgency, uncontrolled, increase amlodipine to 10mg daily amlodipine, atenolol, hydralazine. Patient is discharged on amlodipine 10 mg daily, hydralazine and atenolol. 4. Diarrhea, non-infective, c. diff and enteric panel is negative, resolved 5. Anemia of CKD, stable 6. Type II DM complicated with retinopathy, neuropathy and nephropathy, sugars are fairly controlled, episodes of hypoglycemia. Discontinue premeal insulin, continue on Lantus and ISS as well as gabapentin. Patient has history of noncompliance with diabetes 7. Anxiety/depression, on bupropion 8. DVT PPx- Heparin SC Patient is discharged home. Follow-up with Dr. Satish Phan on for outpatient tunneled dialysis catheter and and Dr. Montiel on September 03. Discharge medications discussed with the patient. Discharge follow-up instructions completed. Total time spent, exact 35 minutes on discharge meds reconciliation, examination, review of imaging and blood test and discussion with the patient on follow-up instructions. [] Microbiology Past 72 Hours 08/23/18 09:45 Stool Enteric Bacteriology - Final 08/23/18 09:45 Stool C. difficile DNA Amplification - Final Laboratory Results 08/24/18 16:52: POC Glucose 187 H 08/24/18 22:13: POC Glucose 152 H 08/25/18 06:10: Sodium 146 H, Potassium 5.6 H, Chloride 115 H, Carbon Dioxide 21.0, BUN 72 H, Creatinine 6.20 H, Estim Creat Clear Calc 13.94, Est GFR (MDRD) Af Amer 12 L, Est GFR (MDRD) Non-Af 10 L, BUN/Creatinine Ratio 11.6, Glucose 111 H, Calcium 8.0 L, Phosphorus 6.5 H, Albumin 2.0 L 08/25/18 06:51: POC Glucose 108 08/25/18 11:57: POC Glucose 131 H 08/25/18 13:40: Sodium 142, Potassium 5.2 H, Chloride 113 H, Carbon Dioxide 22.0, BUN 73 H, Creatinine 6.24 H, Estim Creat Clear Calc 13.85, Est GFR (MDRD) Af Amer 12 L, Est GFR (MDRD) Non-Af 10 L, BUN/Creatinine Ratio 11.7, Glucose 130 H, Calcium 8.4 L, Phosphorus 6.6 H, Albumin 2.5 L Subjective: The patient was seen and examined today. Discussed with Dr. Montiel. Patient has bilateral lower extremity edema 24-hour urine is suggestive of nephrotic range proteinuria. K5.6, creatinine 6.2, BUN 72. In the morning, there was thought process of putting permacath and Dr. Satish Phan was consulted. Consult reviewed and appreciated. His insurance would not cover for inpatient dialysis tunnel catheter and therefore she advised to repeat BMP in the afternoon. Blood pressure is better. Patient has history of noncompliance. Kayexalate [address] Motniel. Repeat BMP shows K5.2. - Physical Exam General: Alert, Oriented x3, Cooperative HEENT: Atraumatic, PERRLA, EOMI, Normocephalic Neck: Supple, No JVD, Negative Carotid Bruits Lungs: Clear to auscultation, No rhonchi, No wheeze, No rales, Diminished Cardiovascular: Regular rate, Regular Rhythm, Normal S1, Normal S2, No murmurs Abdomen: Bowel Sounds Present, Soft, Non Tender, Non-Distended Extremities: Capillary Refill Less than 3 Seconds, Edema Skin: No rashes, No breakdown, - - Right forearm AV fistula on 08/08 Musculoskeletal: No Tenderness to Palpation of Joints or Extremities, Arthritic Changes Neurological: Cranial nerves II-XII grossly intact, Deep Tendon Reflexes 2+/4 and Symmetrical, Neuro grossly intact, Motor Exam 5/5 strength throughout Psych/Mental Status: Normal Affect, Appropriate Vital Signs Temp Pulse Resp BP Pulse Ox 98.3 F 71 16 151/76 H 93 08/25/18 13:05 08/25/18 15:07 08/25/18 13:05 08/25/18 13:05 08/25/18 13:05 Oxygen Delivery Method Room Air Weight: 242 lb 11.663 oz Body Mass Index (BMI) 36.6 Finger Stick Blood Glucose 149 Intake and Output for Last 24 Hours Intake Total 1090 / 1090 740 / 740 120 / 120 Output Total 1950 / 1950 2175 / 2175 250 / 250 Balance -860 / -860 -1435 / -1435 -130 / -130 Microbiology Past 72 Hours 08/23/18 09:45 Enteric Bacteriology - Final Stool 08/23/18 09:45 C. difficile DNA Amplification - Final Stool Laboratory Tests Past 24 Hrs POC Glucose POC Glucose 131 H 108 152 H POC Glucose 187 H Discharge Activity: May Not Drive Call your doctor if you observe: Fever of 101 or Higher, Inability to have a bowel movement, Shortness of breath, Swelling in the ankles, Chest pain, Calf discomfort Home Medications: Medications to take at Discharge Gabapentin [Neurontin] 300 mg PO TIDCM 07/15/13 Bupropion HCl [Wellbutrin Xl] 300 mg PO DAILY 05/06/17 Atorvastatin Calcium [Lipitor] 20 mg PO QHS 11/19/17 Atenolol [Tenormin (beta elizabeth)] 100 mg PO DAILY 11/28/17 acetaminophen 500 mg tablet 1,000 mg PO DAILY PRN PRN tab 01/20/18 tamsulosin 0.4 mg capsule 0.4 mg PO DAILY cap 01/20/18 hydralazine 25 mg tablet 25 mg PO TID 07/11/18 insulin glargine (U-100) 100 unit/mL (3 mL) subcutaneous pen 4 - 6 unit SQ QHS ml 07/11/18 Calcitriol [Rocaltrol] 0.5 mcg PO DAILY 08/04/18 Aspirin [Aspirin, Baby] 81 mg PO DAILY@0800 08/21/18 Amlodipine [Norvasc] 10 mg PO DAILY #30 tablet 08/25/18 Calcium Acetate [Phoslo Gel Cap] 667 mg PO TIDCM #90 capsule 08/25/18 Furosemide [Lasix] 80 mg PO BID@1000,1800 #30 tablet 08/25/18 Insulin Lispro [Humalog KwikPen] See Protocol SQ ACHS insuln.pen 08/25/18 Following Prescrptions Were Given to Patient: Amlodipine [Norvasc] 10 mg PO DAILY #30 tablet Furosemide [Lasix] 80 mg PO BID@1000,1800 #30 tablet Calcium Acetate [Phoslo Gel Cap] 667 mg PO TIDCM #90 capsule Primary Care Physician: Anderson Gaston MD [Primary Care Provider] - Please follow up with your Primary Care Physician in: in 1- 2 weeks Please Follow Up With: Loida Montiel DO When: IN 1 week with renal panel Medical Necessity - Tobacco Use Smoking Status: Never smoker Tobacco Use: Chew Meaningful Use Info Meaningful Use Diagnoses (Choose all that apply): None applicable Code Visit Inpatient E AND M: 42417 Disch Hosp 12/17/18 1713 <Electronically signed by Sadiq Navarro MD> Date Sadiq Navarro MD Cosigner Signature (if applicable): Date CC: Anderson Gaston MD; Sadiq Navarro MD Signed BEDSIDE GLUCOSE Collected: 08/25/2018 Status: F Source: [facility] 5:08 PM [facility] REPOSITORY TYPE CODE TESTS RESULT OUT OF REFERENCE UNITS RANGE LAB L501.080 70-110 mg/dL High BEDSIDE GLU 205 Result Comment: MANAGEMENT OF PATIENT CARE PER NURSING PROTOCOL Performed By: #### L501.080 #### [facility] Point of Care [address] [facility] [place] [address] DISCHARGE INSTRUCTION Observed: 08/25/2018 Status: F Source: [facility] 4:43 PM [facility] REPOSITORY [facility] Medical Records Department [address] [place] [address] Instructions for Home/Discharge Instructions 08/25/18 1615 MR#: [id number] Acct: [id number] Name: WILLIAMS BURGOS Rep #: [id number] : 1970 47 From: Sadiq Navarro MD PCP: Anderson Gaston MD Status: ADM IN - Discharge Diagnoses Current Active Problems: Current Active and Chronic Problems (Last Reviewed 08/25/18 @ 11:25 by Minerva Sexton PA-C) Chronic renal failure, stage 5 (Chronic) You will use the following diet at home:: Renal (restricted protein/sodium) Your food should be the consistency of: Regular Discharge Activity: May Not Drive Call your doctor if you observe: Fever of 101 or Higher, Inability to have a bowel movement, Shortness of breath, Swelling in the ankles, Chest pain, Calf discomfort Allergies/Adverse Reactions: Allergies No Known Allergies Allergy (Verified 08/04/18 09:24) Medications to take at Discharge Gabapentin [Neurontin] 300 mg PO TIDCM 07/15/13 Bupropion HCl [Wellbutrin Xl] 300 mg PO DAILY 05/06/17 Atorvastatin Calcium [Lipitor] 20 mg PO QHS 11/19/17 Atenolol [Tenormin (beta elizabeth)] 100 mg PO DAILY 11/28/17 acetaminophen 500 mg tablet 1,000 mg PO DAILY PRN PRN tab 01/20/18 tamsulosin 0.4 mg capsule 0.4 mg PO DAILY cap 01/20/18 Amlodipine [Norvasc] 5 mg PO DAILY 03/02/18 hydralazine 25 mg tablet 25 mg PO TID 07/11/18 insulin glargine (U-100) 100 unit/mL (3 mL) subcutaneous pen 4 - 6 unit SQ QHS ml 07/11/18 Calcitriol [Rocaltrol] 0.5 mcg PO DAILY 08/04/18 Aspirin [Aspirin, Baby] 81 mg PO DAILY@0800 08/21/18 Calcium Acetate [Phoslo Gel Cap] 667 mg PO TIDCM #90 capsule 08/25/18 Furosemide [Lasix] 80 mg PO BID@1000,1800 #30 tablet 08/25/18 Insulin Aspart [Novolog Flexpen] 5 unit SQ TIDCM #0 08/25/18 The following prescriptions were given: Furosemide [Lasix] 80 mg PO BID@1000,1800 #30 tablet Calcium Acetate [Phoslo Gel Cap] 667 mg PO TIDCM #90 capsule Primary Care Physician: Anderson Gaston MD [Primary Care Provider] - Please follow up with your Primary Care Physician in: in 1- 2 weeks Test Results: Test results from this visit will be discussed in further detail at your follow-up appointment, if applicable. Please Follow Up With: Loida Montiel DO When: IN 1 week with renal panel 08/25/18 1643 <Electronically signed by Sadiq Navarro MD> Date Sadiq Navarro MD CC: Anderson Gaston MD; Loida Montiel DO RENAL PROFILE Collected: 08/25/2018 Status: F Source: [facility] 1:40 PM [facility] REPOSITORY TYPE CODE TESTS RESULT OUT OF RANGE REFERENCE UNITS LAB L501.0100 74-106 mg/dL High GLU 130 Result Comment: Fasting Glucose result greater than or equal to 126 mg/dL suggests DIABETES MELLITUS per A.D.A. criteria. Please note revised GLUCOSE reference range effective 2017. LAB L501.1000 7-18 mg/dL High BUN 73 LAB L501.1100 0.70-1.30 mg/dL High CREAT,SERUM 6.24 Result Comment: The validity of the calculated GFR AND GFRAA in patients over 70 years has not been determined. Clinical correlation is essential. LAB L501.1110 >60 mL/min Low EST GFR 10 Result Comment: Non- GFR Calc LAB L501.1115 >60 mL/min Low EST GFR - AA 12 Result Comment: GFR Calc LAB L501.1255 ml/min Normal Estimated CRCL 13.85 LAB L501.1300 10-20 RATIO Normal BUN/CRE 11.7 LAB L501.1800 3.2-5. g/dL Low 0 ALB 2.5 LAB L501.2200 8.5-10 mg/dL Low .1 CA 8.4 LAB L501.2300 2.5-4. mg/dL High 9 PHOS 6.6 LAB L501.5300 136-14 mmol/L Normal 5 NA 142 LAB L501.5600 3.5-5. mmol/L High 1 K 5.2 LAB L501.5900 98-107 mmol/L High CL 113 LAB L501.6100 21.0-3 mmol/L Normal 2.0 CO2 22.0 Performed By: #### L500.3600 #### [facility] [address] [place], [address] CONSULTATION Observed: 08/25/2018 Status: F Source: [facility] 12:05 PM [facility] REPOSITORY [facility] Medical Records Department [address] [place] [address] Consultation 08/25/18 1057 MR#: [id number] Acct: [id number] Name: WILLIAMS BURGOS Rep #: [id number] : 1970 47 From: Minerva Sexton PA-C PCP: Anderson Gaston MD Status: ADM IN Y Location: [facility] [id number] ADDENDUM by Minerva Sexton PA-C on 08/25/18 at 1205 Code Visit Was told by Dr. Montiel that patient's insurance will not cover chest catheter placement as an inpatient. Will proceed as an outpatient on . Our office will call the patient with potential arrival and procedure time. 08/25/18 1205 <Electronically signed by Minerva Sexton PA-C> Date Minerva Sexton PA-C cc: Anderson Gaston MD; Loida Montiel DO * Signed Problem List (1) Chronic renal failure, stage 5 Status: Chronic (2) Acute on chronic diastolic CHF (congestive heart failure) Status: Acute Reason for Consult Date of Consultation: 08/25/18 Reason for Consultation: Chronic renal failure worsening creatinine. In need of tunneled dialysis catheter. History of Present Illness: The patient is a 47 year old M who presented to the Ed with 1 1/2 weeks of shortness of breath. Patient noted bilateral lower extremity edema, increased shortness of breath and back pain. He noted these symptoms progressed which is what brought him to the ED. He notes a history of CHF. He follows with Dr. Cabral and Aj Faith, [facility]. He denies previous stroke, myocardial infarction, blood clots. Patient recently had a stage I right forearm radiocephalic AV fistula creation by Dr. Phan on 08/08. Patient is not currently on dialysis. 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 Patient is a diabetic. He was diagnosed at the age of 21. He is blind in the left eye. Creatinine has increased from 5.6 on admission to 6.2 today. Medical problems included diastolic congestive heart failure and left ventricular hypertrophy, diabetes mellitus type 2, diabetic neuropathy, diabetic nephropathy, diabetic retinopathy, obesity, noncompliance with diet medications as well as hypertension, hyperlipidemia ,anxiety ,depression, GERD, tobacco dependence, stage V renal failure, sleep apnea. Past Medical History Past Medical History (Chronic Problems): Chronic Problems (Last Reviewed 07/18/18 @ 14:09 by Luzmaria Mccullough) Chronic renal failure, stage 5 (Chronic) Ectopic cardiac beats (Chronic) Anemia of chronic renal failure, stage 4 (severe) (Chronic) Chronic renal failure, stage 4 (severe) (Chronic) Is currently following with nephrology. Also following with urology. Is trying to follow his low protein diet and feels he is doing well with it. Obesity (BMI 30-39.9) (Chronic) Noncompliance (Chronic) Diabetic neuropathy (Chronic) Diabetic nephropathy (Chronic) Diabetic retinopathy (Chronic) HTN (hypertension) (Chronic) HLD (hyperlipidemia) (Chronic) Blind left eye (Chronic) Diabetes mellitus type II, uncontrolled (Chronic) Dx : 1990 Discussed with patient need to check BG in pairs, learn carb counting and then we can determine I/C ratio for him at last visit. is doing well with his diet. He stopped his basalglar. He is willing to start again at lower dose and titrate back up. He will start at 10 units and increase by 2-3 units every 3 days if he is waking with higher BG than he went to bed with. I have also decrease his correction to 1-50 so that he is not going low after correction. I have given he an alternative correction scale to use if he needs less correction when he begins with higer dose of basaglar and finds his current correction may be too strong. On statin On asa Anxiety and depression (Chronic) GERD (gastroesophageal reflux disease) (Chronic) Chewing tobacco nicotine dependence (Chronic) History of acute myocardial infarction (Chronic) Medical History: Medical History (Last Reviewed 08/25/18 @ 11:25 by Minerva Sexton PA-C) Anasarca associated with disorder of kidney (Acute) N04.9 Anemia of chronic renal failure, stage 4 (severe) (Chronic) N18.4, D63.1 Autonomic neuropathy (Suspected) G90.9 Chronic renal failure, stage 4 (severe) (Chronic) N18.4 Is currently following with nephrology. Also following with urology. Is trying to follow his low protein diet and feels he is doing well with it. Retention, urine (Acute) R33.9 Acute on chronic diastolic CHF (congestive heart failure) (Acute) I50.33 Acute hypoxemic respiratory failure (Ruled-out) J96.01 Hypoglycemia (Acute) E16.2 resolved in ED Acute respiratory failure with hypoxia (Ruled-out) J96.01 Obesity (BMI 30-39.9) (Chronic) E66.9 Noncompliance (Chronic) Z91.19 Diabetic neuropathy (Chronic) E11.40 Diabetic nephropathy (Chronic) E11.21 Diabetic retinopathy (Chronic) E11.319 HTN (hypertension) (Chronic) I10 HLD (hyperlipidemia) (Chronic) E78.5 Blind left eye (Chronic) H54.40 Diabetes mellitus type II, uncontrolled (Chronic) E11.65 Dx : 1991 Discussed with patient need to check BG in pairs, learn carb counting and then we can determine I/C ratio for him at last visit. is doing well with his diet. He stopped his basalglar. He is willing to start again at lower dose and titrate back up. He will start at 10 units and increase by 2-3 units every 3 days if he is waking with higher BG than he went to bed with. I have also decrease his correction to 1-50 so that he is not going low after correction. I have given he an alternative correction scale to use if he needs less correction when he begins with higer dose of basaglar and finds his current correction may be too strong. On statin On asa Anxiety and depression (Chronic) F41.9, F32.9 GERD (gastroesophageal reflux disease) (Chronic) K21.9 Chewing tobacco nicotine dependence (Chronic) F17.220 ILDA (acute kidney injury) (Ruled-out) N17.9 Right leg pain (Resolved) M79.604 Chronic ulcer of 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 (Resolved) L97.912 Cellulitis and abscess of right leg (Resolved) L03.115, L02.415 History of acute myocardial infarction (Chronic) I25.2 Kidney failure N19 Kidney stones N20.0 Pneumonia J18.9 Vision problems H54.7 Hypertensive emergency (Resolved) I16.1 Hypokalemia (Resolved) E87.6 Allergies No Known Allergies Allergy (Verified 08/04/18 09:24) Home Medications: Ambulatory Orders Medication Instructions Recorded Gabapentin [Neurontin] 300 mg PO TIDCM 07/15/13 Bupropion HCl [Wellbutrin Xl] 300 mg PO DAILY 05/06/17 Atorvastatin Calcium [Lipitor] 20 mg PO QHS 11/19/17 Surgical History: Surgical History (Last Reviewed 08/25/18 @ 11:25 by Minerva Sexton PA-C) History of appendectomy Z90.49 History of eye surgery Z98.890 Lt retinal tear History of cholecystectomy Z90.49 Surgical History: cholecystectomy, - - AVF rt forearm 08/08/18 Smoking Status: Never smoker Tobacco Use: Chew Alcohol: None Drugs: None - *Family History Maternal Family History: Family History (Last Reviewed 08/25/18 @ 11:25 by Minerva Sexton PA-C) Mother Heart disease Hypertension Father Cancer Brother Cancer Diabetes Sister Diabetes History Items: Heart Disease Paternal Family History: Family History (Last Reviewed 08/25/18 @ 11:25 by Minerva Setxon PA-C) Mother Heart disease Hypertension Father Cancer Brother Cancer Diabetes Sister Diabetes History Items: Cancer - Father w/ Colon CA. Sibling Family History: Family History (Last Reviewed 08/25/18 @ 11:25 by Minerva Sexton PA-C) Mother Heart disease Hypertension Father Cancer Brother Cancer Diabetes Sister Diabetes History Items: Diabetes - sister, brother who passed, no kidney disease Review of Systems Constitutional: Reports: Anorexia, Weight Change, Fatigue HEENT: Denies: Head Aches, Sinus Congestion, Sinus Drainage Cardiovascular: Denies: Chest Pain, Palpitations Respiratory: Denies: Cough, Shortness of breath at rest, Sputum production Gastrointestinal: Denies: Abdominal Pain, Nausea, Vomiting Genitourinary: Denies: Dysuria Musculoskeletal: Denies: Joint Pain, Joint Tenderness Skin: Denies: Rash, Wounds Neurological: Denies: Numbness, Tingling, Focal weakness Psychiatric: Reports: Depression Hematologic/ Lymphatic: Reports: Anemia, Easy Bruising, Easy Bleeding - Physical Exam General: Alert, Oriented x3, Cooperative HEENT: Atraumatic, PERRLA, EOMI, Normocephalic Neck: Supple, No JVD, Negative Carotid Bruits Lungs: Clear to auscultation, Normal air movement Cardiovascular: Regular rate, No murmurs Abdomen: Bowel Sounds Present, Soft, Non Tender Extremities: Edema - 2+ bilateral lower extremity, - - Right forearm fistula- good pulse, bruit and thrill Skin: No rashes, No breakdown Musculoskeletal: No Tenderness to Palpation of Joints or Extremities Neurological: Neuro grossly intact Psych/Mental Status: Normal Affect, Appropriate Vital Signs Temp Pulse Resp BP Pulse Ox 97.8 F 67 16 140/60 H 94 08/25/18 09:15 08/25/18 09:15 08/25/18 09:15 08/25/18 09:15 08/25/18 09:15 Oxygen Delivery Method Room Air Weight: 242 lb 11.663 oz Body Mass Index (BMI) 36.6 Finger Stick Blood Glucose 149 Intake and Output for Last 24 Hours Intake Total 1090 / 1090 740 / 740 Output Total 1950 / 1950 2175 / 2175 0 / 0 Balance -860 / -860 -1435 / -1435 0 / 0 Microbiology Past 72 Hours 08/23/18 09:45 Enteric Bacteriology - Final Stool 08/23/18 09:45 C. difficile DNA Amplification - Final Stool Laboratory Tests Past 24 Hrs Sodium 146 H Potassium 5.6 H Chloride 115 H Carbon Dioxide 21.0 BUN 72 H Creatinine 6.20 H POC Glucose POC Glucose 108 152 H 187 H POC Glucose 142 H Assessment/Plan All Active Problems (Last Reviewed 07/18/18 @ 14:09 by Luzmaria Mccullough) Anasarca associated with disorder of kidney (Acute) Retention, urine (Acute) Acute on chronic diastolic CHF (congestive heart failure) (Acute) Acute hypoxemic respiratory failure (Ruled-out) Hypoglycemia (Acute) Acute respiratory failure with hypoxia (Ruled-out) ILDA (acute kidney injury) (Ruled-out) Right leg pain (Resolved) Chronic ulcer of 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 (Resolved) Cellulitis and abscess of right leg (Resolved) Hypertensive emergency (Resolved) Hypokalemia (Resolved) I have been consulted in conjunction with Dr. Phan. Impression: Stage V chronic renal failure. In need of tunneled dialysis catheter placement. Plan: Discussed patient with Dr. Phan. Dr. Phan will plan to perform a right tunneled dialysis chest catheters. Procedure details, risks and benefits have been explained. Patient has had the opportunity to ask and have questions answered. Patient verbally understands and agrees with the plan. Thank you for allowing us to participate in this patient's care. My recommendations will be available via electronic medical records. Code Visit Office Visits / Consults: [id number] IP Consult L3 08/25/18 1135 <Electronically signed by Minerva Sexton PA-C> Date Minerva Camposer Signature (if applicable): Date CC: Anderson Gaston MD; Loida Montiel DO Signed BEDSIDE GLUCOSE Collected: 08/25/2018 Status: F Source: [facility] 11:57 AM [facility] REPOSITORY TYPE CODE TESTS RESULT OUT OF REFERENCE UNITS RANGE LAB L501.080 70-110 mg/dL High BEDSIDE GLU 131 Result Comment: MANAGEMENT OF PATIENT CARE PER NURSING PROTOCOL Performed By: #### L501.080 #### [facility] Point of Care [address] [place] [address] 12 LEAD ELECTROCARDIOGRAM Observed: 08/25/2018 Status: F Source: [facility] 7:48 AM [facility] REPOSITORY [facility] Cardiovascular Services [address] [address] 12 Lead EKG 08/22/18 0423 MR#: [id number] Acct: [id number] Name: WILLIAMS BURGOS Rep #: [id number] : 1970 47 From: Tylor Rudd MD Attending Dr[facility]: ADM IN Ordering Dr: Oscar Ag MD Date: 08/22/18 Location: [facility] Sex: M C Admitted: 08/21/18 Test Reason : AM Blood Pressure : / mmHG Vent. Rate : 075 BPM Atrial Rate : 075 BPM P-R Int : 180 ms QRS Dur : 096 ms QT Int : 402 ms P-R-T Axes : 047 022 074 degrees QTc Int : 448 ms Normal sinus rhythm Nonspecific T wave abnormality Abnormal ECG When compared with ECG of 21-AUG-2018 17:47, MANUAL COMPARISON REQUIRED, DATA IS UNCONFIRMED Confirmed by TYLOR RUDD MD ([id number]), features editor TOBY WATSON ([id number]) on 08/25/2018 7:47:56 AM Referred By: CECI Confirmed By:TYLOR RUDD MD 08/25/18 0747 Date Tylor Rudd MD CC: Anderson Gaston MD; Oscar Ag MD; Sadiq Navarro MD Signed BEDSIDE GLUCOSE Collected: 08/25/2018 Status: F Source: [facility] 6:51 AM [facility] REPOSITORY TYPE CODE TESTS RESULT OUT OF RANGE REFERENCE UNITS LAB L501.080 70-110 mg/dL Normal BEDSIDE GLU 108 Result Comment: MANAGEMENT OF PATIENT CARE PER NURSING PROTOCOL Performed By: #### L501.080 #### [facility] Point of [place] [address] RENAL PROFILE Collected: 08/25/2018 Status: F Source: [facility] 6:10 AM [facility] REPOSITORY TYPE CODE TESTS RESULT OUT OF RANGE REFERENCE UNITS LAB L501.0100 74-106 mg/dL High GLU 111 Result Comment: Fasting Glucose result from 100 to 125 mg/dL suggests IMPAIRED HOMEOSTASIS per A.D.A. criteria. Please note revised GLUCOSE reference range effective 2017. LAB L501.1000 7-18 mg/dL High BUN 72 LAB L501.1100 0.70-1.30 mg/dL High CREAT,SERUM 6.20 Result Comment: The validity of the calculated GFR AND GFRAA in patients over 70 years has not been determined. Clinical correlation is essential. LAB L501.1110 >60 mL/min Low EST GFR 10 Result Comment: Non- GFR Calc LAB L501.1115 >60 mL/min Low EST GFR - AA 12 Result Comment: GFR Calc LAB L501.1255 ml/min Normal Estimated CRCL 13.94 LAB L501.1300 10-20 RATIO Normal BUN/CRE 11.6 LAB L501.1800 3.2-5. g/dL Low 0 ALB 2.0 LAB L501.2200 8.5-10 mg/dL Low .1 CA 8.0 LAB L501.2300 2.5-4. mg/dL High 9 PHOS 6.5 LAB L501.5300 136-14 mmol/L High 5 NA 146 LAB L501.5600 3.5-5. mmol/L High 1 K 5.6 LAB L501.5900 98-107 mmol/L High CL 115 LAB L501.6100 21.0-3 mmol/L Normal 2.0 CO2 21.0 Performed By: #### L500.3600 #### [facility] [address] [place], [address] BEDSIDE GLUCOSE Collected: 08/24/2018 Status: F Source: [place] 10:13 PM [facility] REPOSITORY TYPE CODE TESTS RESULT OUT OF REFERENCE UNITS RANGE LAB L501.080 70-110 mg/dL High BEDSIDE GLU 152 Result Comment: MANAGEMENT OF PATIENT CARE PER NURSING PROTOCOL Performed By: #### L501.080 #### [facility] Point of Care [address] [place] [address] BEDSIDE GLUCOSE Collected: 08/24/2018 Status: F Source: [place] 4:52 PM [facility] REPOSITORY TYPE CODE TESTS RESULT OUT OF REFERENCE UNITS RANGE LAB L501.080 70-110 mg/dL High BEDSIDE GLU 187 Result Comment: MANAGEMENT OF PATIENT CARE PER NURSING PROTOCOL Performed By: #### L501.080 #### [facility] Point of Care [address] [place] [address] BEDSIDE GLUCOSE Collected: 08/24/2018 Status: F Source: [place] 11:21 AM [facility] REPOSITORY TYPE CODE TESTS RESULT OUT OF REFERENCE UNITS RANGE LAB L501.080 70-110 mg/dL High BEDSIDE GLU 142 Result Comment: MANAGEMENT OF PATIENT CARE PER NURSING PROTOCOL Performed By: #### L501.080 #### [facility] Point of Care [address] [place] [address] BEDSIDE GLUCOSE Collected: 08/24/2018 Status: F Source: [place] 6:39 AM [facility] REPOSITORY TYPE CODE TESTS RESULT OUT OF RANGE REFERENCE UNITS LAB L501.080 70-110 mg/dL Normal BEDSIDE GLU 93 Result Comment: MANAGEMENT OF PATIENT CARE PER NURSING PROTOCOL Performed By: #### L501.080 #### [facility] Point of Care [address] [place] [address] CBC-COMPLETE BLOOD CNT Collected: 08/24/2018 Status: F Source: [place] NO DIFF 6:35 AM [facility] REPOSITORY TYPE CODE TESTS RESULT OUT OF RANGE REFERENCE UNITS LAB L100.1000 4.4-11.0 K/mm3 Normal WBC 5.5 LAB L100.1200 4.6-6.2 M/mm3 Low RBC 3.16 LAB L100.1300 13.0-16.5 g/dl Low HGB 9.5 LAB L100.1400 40-54 % Low HCT 28.2 LAB L100.1500 80-94 fL Normal MCV 89.2 LAB L100.1600 27.0-32.0 pg Normal MCH 30.1 LAB L100.1700 32-36 g/gl Normal MCHC 33.7 LAB L100.1810 11.6-14.6 % Normal RDW CV 13.0 LAB L100.1820 35.1-43.9 fl Normal RDW SD 40.6 LAB L100.1900 150-450 K/mm3 Normal PLT 205 LAB L100.2000 6.2-12.0 fl Normal MPV 9.6 Performed By: #### L100.0500 #### [facility] [address] [place], [place], [id number] BEDSIDE GLUCOSE Collected: 08/23/2018 Status: F Source: [place] 9:03 PM [facility] REPOSITORY TYPE CODE TESTS RESULT OUT OF REFERENCE UNITS RANGE LAB L501.080 70-110 mg/dL High BEDSIDE GLU 140 Result Comment: MANAGEMENT OF PATIENT CARE PER NURSING PROTOCOL Performed By: #### L501.080 #### [facility] Point of Care [address] [place] [address] BEDSIDE GLUCOSE Collected: 08/23/2018 Status: F Source: [place] 4:30 PM [facility] REPOSITORY TYPE CODE TESTS RESULT OUT OF RANGE REFERENCE UNITS LAB L501.080 70-110 mg/dL Normal BEDSIDE GLU 109 Result Comment: MANAGEMENT OF PATIENT CARE PER NURSING PROTOCOL Performed By: #### L501.080 #### [facility] Point of Care [address] [place] [address] 24 HR UR CREATININE Collected: 08/23/2018 Status: F Source: [place] CLEARANCE 4:15 PM [facility] REPOSITORY TYPE CODE TESTS RESULT OUT OF RANGE REFERENCE UNITS LAB L501.0050 24.0 HOURS Normal UR COLLECT 24.0 TIME LAB L501.0075 mL Normal UR TOTAL 1850 VOLUME LAB L501.1050 0.8-1.3 mg/dL High SERUM CREAT 5.8 LAB L501.1110 >60 mL/min Low EST GFR 11 Result Comment: Non- GFR Calc LAB L501.1115 >60 mL/min Low EST GFR - AA 14 Result Comment: GFR Calc LAB L501.1150 NO RANGE mg/dL EST. URINE Normal CREAT 71.4 LAB L501.1250 100-200 ml/min Low CREAT CLEARANCE 16 Performed By: #### L500.4507 #### [facility] [address] [facility] [place], [address] PROTEIN, URINE 24HR Collected: 08/23/2018 Status: F Source: [place] 4:15 PM [facility] REPOSITORY TYPE CODE TESTS RESULT OUT OF RANGE REFERENCE UNITS LAB L501.1850 24.0 HOURS Normal UR COLLECT 24.0 TIME LAB L501.1875 mL Normal UR TOTAL 1850 VOLUME LAB L501.1925 <150 MG/24HR mg/24HR High 24hr UR 8909.6 PROTEIN LAB L501.1900 <11.9 mg/dL High URINE PROTEIN 481.6 Performed By: #### L500.9000 #### [facility] [address] [facility] [address] [facility] [address] BEDSIDE GLUCOSE Collected: 08/23/2018 Status: F Source: [place] 12:27 PM [facility] REPOSITORY TYPE CODE TESTS RESULT OUT OF RANGE REFERENCE UNITS LAB L501.080 70-110 mg/dL Normal BEDSIDE GLU 88 Result Comment: MANAGEMENT OF PATIENT CARE PER NURSING PROTOCOL Performed By: #### L501.080 #### [facility] Point of Care [address] [place] [address] CONSULTATION Observed: 08/23/2018 Status: F Source: [place] 10:07 AM [facility] REPOSITORY [facility] Medical Records Department [address] [place] [address] Consultation 08/22/18 1422 MR#: [id number] Acct: [id number] Name: WILLIAMS BURGOS Rep #: [id number] : 1970 47 From: Loida Montiel DO PCP: Anderson Gaston MD Status: ADM IN [id number] - Renal 08/22/18 PCP/ Referring MD: Requesting physician: [] Primary care physician: Anderson Gaston Reason for Consultation:: CKD stage 4 - History of Present Illness History of Present Illness: The patient is a 47 year old M known to me with 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 He is in isolation now for diarrhea that started today. He was given iv lasix 80mg in ER now on 40mg twice a day diuresing well. He had an AV fistula placed in the right wrist 08/08 stage 1 procedure. Patient states that he still makes urine. He normally takes 20 mg of Lasix twice daily at home. He denies nausea, vomiting, anorexia. Denied abdominal pain. He is admitted for volume control. - Allergies Allergies: Allergies No Known Allergies Allergy (Verified 08/04/18 09:24) - Current Medications Current Medications: Current Medications Acetaminophen (Tylenol) 1,000 mg PO DAILY PRN PRN PRN Reason: PAIN Amlodipine Besylate (Norvasc) 5 mg PO DAILY [facility] Last Admin: 08/22/18 08:31 Dose: 5 mg Aspirin (Aspirin, Baby) 81 mg PO DAILY@0800 [facility] Last Admin: 08/22/18 08:32 Dose: 81 mg Atenolol (Tenormin (Beta Elizabeth)) 100 mg PO DAILY [facility] Last Admin: 08/22/18 08:32 Dose: 100 mg Atorvastatin Calcium (Lipitor) 20 mg PO QHS [facility] Last Admin: 08/21/18 22:42 Dose: 20 mg Bupropion HCl (Wellbutrin Xl) 300 mg PO DAILY [facility] Last Admin: 08/22/18 08:32 Dose: 300 mg Calcitriol (Rocaltrol) 0.5 mcg PO DAILY [facility] Last Admin: 08/22/18 08:31 Dose: 0.5 mcg Dextrose (D50w Syringe) 0 gm IV X1 PRN; Protocol PRN Reason: Hypoglycemia Furosemide (Lasix) 40 mg IV BID@1000,1800 [facility] Last Admin: 08/22/18 08:31 Dose: 40 mg Gabapentin (Neurontin) 300 mg PO TIDCM [facility] Last Admin: 08/22/18 11:38 Dose: 300 mg Glucagon () 1 mg IM .X1 PRN PRN Reason: Hypoglycemia Heparin Sodium (Porcine) (Heparin Na) 5,000 unit SC Q12 [facility] Last Admin: 08/22/18 08:32 Dose: 5,000 unit Hydralazine HCl (Apresoline) 25 mg PO TID [facility] Last Admin: 08/22/18 05:02 Dose: 25 mg Insulin Glargine (Lantus ([facility])) 6 units SC QHS [facility] Last Admin: 08/21/18 22:43 Dose: 6 u Insulin Human Lispro (Humalog Kwikpen ([facility])) 0 unit SQ ACHS [facility]; Protocol Last Admin: 08/22/18 11:38 Dose: Not Given Insulin Human Lispro (Humalog Kwikpen ([facility])) 12 unit SC TIDCM [facility] Last Admin: 08/22/18 11:38 Dose: Not Given Magnesium Hydroxide (Milk Of Magnesia) 30 ml PO DAILY PRN PRN Reason: Constipation Sodium Chloride () 5 - 15 ml IV UD PRN PRN Reason: SALINE FLUSH Last Admin: 08/22/18 08:34 Dose: 10 ml Tamsulosin HCl (Flomax) 0.4 mg PO DAILY [facility] Last Admin: 08/22/18 08:31 Dose: 0.4 mg - Past Medical History Past Medical History (Chronic Problems): Chronic Problems (Last Reviewed 07/18/18 @ 14:09 by Luzmaria Mccullough) Ectopic cardiac beats (Chronic) Anemia of chronic renal failure, stage 4 (severe) (Chronic) Chronic renal failure, stage 4 (severe) (Chronic) Is currently following with nephrology. Also following with urology. Is trying to follow his low protein diet and feels he is doing well with it. Obesity (BMI 30-39.9) (Chronic) Noncompliance (Chronic) Diabetic neuropathy (Chronic) Diabetic nephropathy (Chronic) Diabetic retinopathy (Chronic) HTN (hypertension) (Chronic) HLD (hyperlipidemia) (Chronic) Blind left eye (Chronic) Diabetes mellitus type II, uncontrolled (Chronic) Dx : 1992 Discussed with patient need to check BG in pairs, learn carb counting and then we can determine I/C ratio for him at last visit. is doing well with his diet. He stopped his basalglar. He is willing to start again at lower dose and titrate back up. He will start at 10 units and increase by 2-3 units every 3 days if he is waking with higher BG than he went to bed with. I have also decrease his correction to 1-50 so that he is not going low after correction. I have given he an alternative correction scale to use if he needs less correction when he begins with higer dose of basaglar and finds his current correction may be too strong. On statin On asa Anxiety and depression (Chronic) GERD (gastroesophageal reflux disease) (Chronic) Chewing tobacco nicotine dependence (Chronic) History of acute myocardial infarction (Chronic) - Past Surgical History Surgical History: cholecystectomy, - - AVF rt forearm 08/08/18 - Social History Marital Status: Smoking Status: Never smoker Alcohol: None Drugs: None - Family History Maternal Family History: Family History (Last Reviewed 07/18/18 @ 14:10 by Luzmaria Mccullough) Mother Heart disease Hypertension Father Cancer Brother Cancer Diabetes Sister Diabetes History Items: Heart Disease Paternal Family History: Family History (Last Reviewed 07/18/18 @ 14:10 by Luzmaria Mccullough) Mother Heart disease Hypertension Father Cancer Brother Cancer Diabetes Sister Diabetes History Items: Cancer - Father w/ Colon CA. Sibling Family History: Family History (Last Reviewed 07/18/18 @ 14:10 by Luzmaria Mccullough) Mother Heart disease Hypertension Father Cancer Brother Cancer Diabetes Sister Diabetes History Items: Diabetes - sister, brother who passed, no kidney disease Review of Systems Constitutional: Denies: Anorexia, Chills, Fever, Weakness, Fatigue Eyes: Denies: Blurred vision HEENT: Denies: Head Aches Cardiovascular: Reports: Chest Pain, Edema. Denies: Palpitations, Syncope Respiratory: Reports: Cough, Shortness of Breath Gastrointestinal: Reports: Diarrhea. Denies: Abdominal Pain, Constipation, Hematemesis, Hematochezia, Nausea, Vomiting Genitourinary: Reports: Frequency, - - good urine output with iv lasix Musculoskeletal: Reports: - - rt forearm +Thrill, bruit Skin: Denies: Rash Neurological: Denies: Balance problems Psychiatric: Reports: Anxiety. Denies: Depression Hematologic/ Lymphatic: Reports: Anemia - Physical Exam General: Alert, Oriented x3, Cooperative, No apparent distress HEENT: PERRLA, EOMI Oral: Moist Mucosa Lungs: Clear to auscultation Cardiovascular: Regular rate, Murmur, No rub noted Abdomen: Bowel Sounds Present, Soft, Non Tender, Non-Distended, Obese Extremities: Edema - 1+ Musculoskeletal: No Muscle Wasting Lymphatic: No Cervical, Supraclavicular, or Inguinal Adenopathy Neurological: Cranial nerves II-XII grossly intact Psych/Mental Status: Normal Affect, Appropriate, Alert and oriented to time, place, person, mood and affect Vital Signs Temp Pulse Resp BP Pulse Ox 98.3 F 78 14 150/76 H 98 08/22/18 10:35 08/22/18 11:00 08/22/18 10:35 08/22/18 10:35 08/22/18 10:35 Oxygen Delivery Method Room Air Weight: 108.9 kg Body Mass Index (BMI) 36.6 Finger Stick Blood Glucose 149 Intake and Output for Last 24 Hours Intake Total 120 / 120 760 / 760 Output Total 600 / 600 550 / 550 Balance -480 / -480 210 / 210 Laboratory Tests Past 24 Hrs WBC 5.6 RBC 3.48 L Hgb 10.3 L Hct 30.3 L MCV 87.1 MCH 29.6 MCHC 34.0 RDW 13.3 WBC RBC WBC 5.5 RBC 3.11 L Hgb 9.3 L Hct 27.5 L MCV 88.4 POC Glucose POC Glucose 93 67 L 122 H POC Glucose 186 H Clinical Impression(s) from Imaging Studies Chest X-Ray 08/21/18 17:45 IMPRESSION: Diffuse interstitial edema with bilateral pleural effusions. Follow-up recommended to assure resolution Electronically Signed: Pranav De Leon MD at 18:30 EST , Service support , Assessment/Plan All Active Problems (Last Reviewed 07/18/18 @ 14:09 by Luzmaria Mccullough) Anasarca associated with disorder of kidney (Acute) Retention, urine (Acute) Acute on chronic diastolic CHF (congestive heart failure) (Acute) Acute hypoxemic respiratory failure (Ruled-out) Hypoglycemia (Acute) Acute respiratory failure with hypoxia (Ruled-out) ILDA (acute kidney injury) (Ruled-out) Right leg pain (Resolved) Chronic ulcer of 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 (Resolved) Cellulitis and abscess of right leg (Resolved) Hypertensive emergency (Resolved) Hypokalemia (Resolved) 1. CKD stage 5 s/p stage 1 AVF placement on 08/08. Currently without uremic symptoms. No urgency to initiate dialysis. Check 24h urine CRCL 2. Fluid overload. Low sodium diet. Continue with iv lasix. May need to cut back if hypernatremia, azotemia worsens. He has dependent edema from diastolic, obesity, nephrotic proteinuria. 3. Anemia stable 4. DM2 primary mgmt 5. HTN stable 6. Diarrhea, stool for cdiff pending. 7/ SPHT check PTH continue calcitriol 8. Morbid obesity 08/23/18 1007 <Electronically signed by Loida Montiel DO> Date Loida Montiel DO Cosigner Signature (if applicable): Date CC: Anderson Gaston MD; Loida Montiel DO Signed Observed: 08/23/2018 Status: F Source: [place] CDIFF (MOLECULAR) 9:45 AM [facility] HOSPITAL REPOSITORY Is the patient receiving laxatives? N New/unexplained onset of 3 or more stools in past 24 hrs? Y Cdiff-Molecular C. Diff DNA Negative- No toxigenic C. Diff DNA Detected NAAT METHOD Testing was performed using nucleic acid amplification Performed By: #### M100.6796 #### [facility] [address] [place], [place], [address] Observed: 08/23/2018 Status: F Source: [facility] ENTERIC PATHOGEN 9:45 AM [facility] PANEL STOOL REPOSITORY EP PANEL STOOL CAMPYLOBACTER Not Detected Salmonella Not Detected Shigella sp. Not Detected Shiga Toxin Not Detected Yersinia Not Detected VIBRIO Not Detected Norovirus Not Detected Rotavirus Not Detected Performed By: #### M100.637 #### [facility] [address] [place], [place], [address] CBC-COMPLETE BLOOD CNT Collected: 08/23/2018 Status: F Source: [place] NO DIFF 7:16 AM [facility] REPOSITORY TYPE CODE TESTS RESULT OUT OF RANGE REFERENCE UNITS LAB L100.1000 4.4-11.0 K/mm3 Normal WBC 5.5 LAB L100.1200 4.6-6.2 M/mm3 Low RBC 3.29 LAB L100.1300 13.0-16.5 g/dl Low HGB 9.9 LAB L100.1400 40-54 % Low HCT 29.5 LAB L100.1500 80-94 fL Normal MCV 89.7 LAB L100.1600 27.0-32.0 pg Normal MCH 30.1 LAB L100.1700 32-36 g/gl Normal MCHC 33.6 LAB L100.1810 11.6-14.6 % Normal RDW CV 13.1 LAB L100.1820 35.1-43.9 fl Normal RDW SD 41.5 LAB L100.1900 150-450 K/mm3 Normal PLT 195 LAB L100.2000 6.2-12.0 fl Normal MPV 9.7 Performed By: #### L100.0500 #### [facility] [address] [place], [place], [address] RENAL PROFILE Collected: 08/23/2018 Status: F Source: [facility] 7:16 AM [facility] REPOSITORY TYPE CODE TESTS RESULT OUT OF RANGE REFERENCE UNITS LAB L501.0100 74-106 mg/dL Normal GLU 101 Result Comment: Fasting Glucose result from 100 to 125 mg/dL suggests IMPAIRED HOMEOSTASIS per A.D.A. criteria. Please note revised GLUCOSE reference range effective 2017. LAB L501.1000 7-18 mg/dL High BUN 63 LAB L501.1100 0.70-1.30 mg/dL High CREAT,SERUM 5.75 Result Comment: The validity of the calculated GFR AND GFRAA in patients over 70 years has not been determined. Clinical correlation is essential. LAB L501.1110 >60 mL/min Low EST GFR 11 Result Comment: Non- GFR Calc LAB L501.1115 >60 mL/min Low EST GFR - AA 14 Result Comment: GFR Calc LAB L501.1255 ml/min Normal Estimated CRCL 15.03 LAB L501.1300 10-20 RATIO Normal BUN/CRE 11.0 LAB L501.1800 3.2-5. g/dL Low 0 ALB 1.9 LAB L501.2200 8.5-10 mg/dL Low .1 CA 7.7 LAB L501.2300 2.5-4. mg/dL High 9 PHOS 5.8 LAB L501.5300 136-14 mmol/L Normal 5 NA 143 LAB L501.5600 3.5-5. mmol/L Normal 1 K 4.5 LAB L501.5900 98-107 mmol/L High CL 116 LAB L501.6100 21.0-3 mmol/L Low 2.0 CO2 18.0 Performed By: #### L500.3600 #### [facility] [address] [facility] [facility] [address] PTHIN Collected: 08/23/2018 Status: F Source: [place] 7:16 AM [facility] REPOSITORY TYPE CODE TESTS RESULT OUT OF RANGE REFERENCE UNITS LAB L509.1000 18.4-80.1 pg/mL High PTHIN 107.8 Performed By: #### L509.1000 #### [facility] [facility] [place], [address] BEDSIDE GLUCOSE Collected: 08/23/2018 Status: F Source: [place] 6:44 AM [facility] REPOSITORY TYPE CODE TESTS RESULT OUT OF REFERENCE UNITS RANGE LAB L501.080 70-110 mg/dL High BEDSIDE GLU 115 Result Comment: MANAGEMENT OF PATIENT CARE PER NURSING PROTOCOL Performed By: #### L501.080 #### [facility] Point of Care [address] [facility] [place] [address] BEDSIDE GLUCOSE Collected: 08/22/2018 Status: F Source: [place] 9:22 PM [facility] REPOSITORY TYPE CODE TESTS RESULT OUT OF REFERENCE UNITS RANGE LAB L501.080 70-110 mg/dL High BEDSIDE GLU 127 Result Comment: MANAGEMENT OF PATIENT CARE PER NURSING PROTOCOL Performed By: #### L501.080 #### [facility] Point of Care [address] [place] [address] BEDSIDE GLUCOSE Collected: 08/22/2018 Status: F Source: [facility] 4:23 PM [facility] REPOSITORY TYPE CODE TESTS RESULT OUT OF REFERENCE UNITS RANGE LAB L501.080 70-110 mg/dL High BEDSIDE GLU 147 Result Comment: MANAGEMENT OF PATIENT CARE PER NURSING PROTOCOL Performed By: #### L501.080 #### [facility] Point of Care [address] [place] [address] ECHOCARDIOGRAM COMPLETE Observed: 08/22/2018 Status: F Source: [facility] 1:12 PM [facility] REPOSITORY [facility] Cardiovascular Services [address] [place] [address] Echo Complete 08/22/18 0949 MR#: [id number] Acct: [id number] Name: WILLIAMS BURGOS Rep #: [id number] : 1970 47 From: Mayo Miguel MD Attending Dr: Donna Salomon MD Status: ADM IN Ordering Dr: Oscar Ag MD Date: 08/22/18 Location: U Sex: M C Admitted: 08/21/18 Reason For Study: CHF Procedure This was a 2D Doppler, Color Flow transthoracic echocardiogram. Exam performed portable in patient room. Left Ventricle Moderate concentric left ventricular hypertrophy. The estimated ejection fraction is 65 %. Normal diastology for age. No regional wall motion abnormalities noted. Right Ventricle Normal size and thickness. Normal systolic function. Atria Normal left atrium. Normal right atrium. Normal atrial septum. Mitral Valve The mitral valve is structurally normal. No prolapse or stenosis seen. Tricuspid Valve Normal tricuspid valve. Trivial tricuspid valve insufficiency. Right ventricular systolic pressure estimated to be 37 mmHg. Mild pulmonary hypertension. Aortic Valve Normal aortic valve. Trisinus/trileaflet aortic valve. Pulmonic Valve Normal pulmonic valve. Great Vessels Normal aortic root. Normal arch. Normal inferior vena cava. Inferior vena cava collapse with sniff. Pericardium/Pleural Small pericardial effusion. Circumferential effusion. There are no echocardiographic indications of cardiac tamponade. MMode/2D Measurements AND Calculations LVIDd: 4.4 cm IVSd: 1.5 cm Ao root diam: 3.3 cm LVIDs: 2.7 cm LVPWd: 1.3 cm LA dimension: 4.9 cm RVDd: 3.9 cm FS: 39.1 % LAV(MOD-bp): 89.0 ml LA A4 area: 25.8 cm2 RA A4 area: 20.4 cm2 LAV(MOD-bp) Indexed: 40.3 ml/m2 LAV(MOD-sp2): 70.0 ml LAV(MOD-sp4): 88.7 ml Time Measurements MV dec time: 0.19 sec Doppler Measurements AND Calculations MV E max bird: 134.7 cm/sec Lat Peak E' Bird: 8.5 cm/sec Med Peak E' Bird: 7.2 cm/sec MV A max bird: 111.0 cm/sec E/E' lat: 15.9 E/E' med: 18.8 MV E/A: 1.2 MV V2 max: 143.8 cm/sec MV P1/2t max bird: 140.1 cm/sec Ao V2 max: 152.2 cm/sec MV max P.3 mmHg MV P1/2t: 62.4 msec Ao max P.3 mmHg MV V2 mean: 84.5 cm/sec MV dec slope: 657.6 cm/sec2 MV mean P.4 mmHg MVA(P1/2t): 3.5 cm2 MV V2 VTI: 39.9 cm LV V1 max: 121.0 cm/sec PA V2 max: 98.9 cm/sec TR max bird: 280.0 cm/sec LV V1 max P.9 mmHg TR max P.4 mmHg Interpretation Summary Moderate concentric left ventricular hypertrophy. The estimated ejection fraction is 65 %. Normal diastology for age. Trivial tricuspid valve insufficiency. Right ventricular systolic pressure estimated to be 37 mmHg. Mild pulmonary hypertension. Small pericardial effusion. Circumferential effusion. There are no echocardiographic indications of cardiac tamponade. Compared to echo report dated 11/20/2017, no appreciable changes noted. Ordering Physician: Oscar Ag Referring Physician: Anderson Gaston Performed By: Antwon Shell RCS 08/22/182 Date Mayo Miguel MD CC: Donna Salomon MD; Anderson Gaston MD; Oscar Ag MD Date Dictated: 08/22/18 0949 Date Transcribed: 08/22/181311 Hand Packager: Signed BEDSIDE GLUCOSE Collected: 08/22/2018 Status: F Source: [facility] 12:20 PM [facility] REPOSITORY TYPE CODE TESTS RESULT OUT OF RANGE REFERENCE UNITS LAB L501.080 70-110 mg/dL Normal BEDSIDE GLU 93 Result Comment: MANAGEMENT OF PATIENT CARE PER NURSING PROTOCOL Performed By: #### L501.080 #### [facility] Point of Care [address] [place] [address] 12 LEAD ELECTROCARDIOGRAM Observed: 08/22/2018 Status: F Source: [facility] 11:57 AM [facility] REPOSITORY [facility] Cardiovascular Services [address] [place] [address] 12 Lead EKG 08/21/18 1747 MR#: [id number] Acct: [id number] Name: WILLIAMS BURGOS Rep #: [id number] : 1970 47 From: Tylor Rudd MD Attending Dr: Donna Salomon MD Status: ADM IN Ordering Dr: Toni Nelson DO Date: 08/21/18 Location: U Sex: M C Admitted: 08/21/18 Test Reason : Blood Pressure : / mmHG Vent. Rate : 075 BPM Atrial Rate : 075 BPM P-R Int : 152 ms QRS Dur : 094 ms QT Int : 392 ms P-R-T Axes : 029 091 -29 degrees QTc Int : 437 ms Normal sinus rhythm Rightward axis Possible Anterior infarct , age undetermined T wave abnormality, consider inferior ischemia Abnormal ECG Confirmed by TYLOR RUDD MD ([id number]), features editor TOBY WATSON ([id number]) on 08/22/2018 11:57:26 AM Referred By: RICHARD Confirmed By:TYLOR RUDD MD 08/22/18 1157 Date Tylor Rudd MD CC: Donna Salomon MD; Anderson Gaston MD; Toni Nelson DO Signed BEDSIDE GLUCOSE Collected: 08/22/2018 Status: F Source: [place] 11:36 AM [facility] REPOSITORY TYPE CODE TESTS RESULT OUT OF REFERENCE UNITS RANGE LAB L501.080 70-110 mg/dL Low BEDSIDE GLU 67 Result Comment: MANAGEMENT OF PATIENT CARE PER NURSING PROTOCOL Performed By: #### L501.080 #### [facility] Point of Care [address] [place] [address] BEDSIDE GLUCOSE Collected: 08/22/2018 Status: F Source: [facility] 6:43 AM [facility] REPOSITORY TYPE CODE TESTS RESULT OUT OF REFERENCE UNITS RANGE LAB L501.080 70-110 mg/dL High BEDSIDE GLU 122 Result Comment: MANAGEMENT OF PATIENT CARE PER NURSING PROTOCOL Performed By: #### L501.080 #### [facility] [place] [address] CBC W/DIFF, AUTOMATED Collected: 08/22/2018 Status: F Source: [facility] 2:45 AM [facility] REPOSITORY TYPE CODE TESTS RESULT OUT OF RANGE REFERENCE UNITS LAB L100.1000 4.4-11.0 K/mm3 Normal WBC 5.5 LAB L100.1200 4.6-6.2 M/mm3 Low RBC 3.11 LAB L100.1300 13.0-16.5 g/dl Low HGB 9.3 LAB L100.1400 40-54 % Low HCT 27.5 LAB L100.1500 80-94 fL Normal MCV 88.4 LAB L100.1600 27.0-32.0 pg Normal MCH 29.9 LAB L100.1700 32-36 g/gl Normal MCHC 33.8 LAB L100.1810 11.6-14.6 % Normal RDW CV 12.9 LAB L100.1820 35.1-43.9 fl Normal RDW SD 39.9 LAB L100.1900 150-450 K/mm3 Normal PLT 210 LAB L100.2000 6.2-12.0 fl Normal MPV 9.5 LAB L100.2100 47-70 % Normal NEUT% 64.6 LAB L100.2200 19-41 % Normal LY% 26.2 LAB L100.2300 0-10 % Normal MONO% 7.5 LAB L100.2400 0-5 % Normal EO% 1.3 LAB L100.2500 0-1 % Normal BASO% 0.4 LAB L100.2550 0.0-0.9 % Normal IM GRAN % 0.000 Result Comment: IG% - Immature Granulocytes (promyelocytes, myelocytes and metamyelocytes) > 1% indicates that a LEFT SHIFT is Present. LAB L100.2620 2.0-7.7 X10 3/uL Normal Absolute Neut 3.6 LAB L100.2720 0.83-4.51 X10 3/ul Normal Absolute Lymph 1.44 Performed By: #### L100.0100 #### [facility] [address] [place], [address] TROPONIN-I Collected: 08/22/2018 Status: F Source: [facility] 2:45 AM [facility] REPOSITORY Order Comment: 'TROP' Serial specimen #1, #2 or #3: 3 TYPE CODE TESTS RESULT OUT OF RANGE REFERENCE UNITS LAB L501.4010 <0.045 ng/mL Normal 0.023 TROPONIN-I Result Comment: TROPONIN-I EXPECTED VALUES <0.045 Negative 0.045 - 0.590 Consistent with Cardiac Damage > OR = 0.600 Critical Value Not every elevated troponin is indicative of NM. These values should be used with clinical judgement in examining the patient's clinical picture for diagnosis. To establish a diagnosis of NM versus myocardial injury, there must be a demonstrated rise and/or fall in the troponin values, in addition to ischemic symptoms, EKG changes, new regional wall motion abnormality, and/or angiographical evidence. PLEASE NOTE: REFERENCE RANGES EDITED 18 Performed By: #### L501.4010 #### [facility] [address] [place], [address] BASIC METABOLIC Collected: 08/22/2018 Status: F Source: [facility] PROFILE ([facility]) 2:45 AM [facility] REPOSITORY TYPE CODE TESTS RESULT OUT OF RANGE REFERENCE UNITS LAB L501.0100 74-106 mg/dL High GLU 152 Result Comment: Fasting Glucose result greater than or equal to 126 mg/dL suggests DIABETES MELLITUS per A.D.A. criteria. Please note revised GLUCOSE reference range effective 2017. LAB L501.1000 7-18 mg/dL High BUN 66 LAB L501.1100 0.70-1.30 mg/dL High CREAT,SERUM 5.77 Result Comment: The validity of the calculated GFR AND GFRAA in patients over 70 years has not been determined. Clinical correlation is essential. LAB L501.1110 >60 mL/min Low EST GFR 11 Result Comment: Non- GFR Calc LAB L501.1115 >60 mL/min Low EST GFR - AA 14 Result Comment: GFR Calc LAB L501.1255 ml/min Normal Estimated CRCL 14.98 LAB L501.1300 10-20 RATIO Normal BUN/CRE 11.4 LAB L501.2200 8.5-10 mg/dL Low .1 CA 7.9 LAB L501.5300 136-14 mmol/L High 5 NA 146 LAB L501.5600 3.5-5. mmol/L Normal 1 K 4.5 LAB L501.5900 98-107 mmol/L High CL 116 LAB L501.6100 21.0-3 mmol/L Normal 2.0 CO2 22.0 LAB L501.6200 5-15 Normal GAP 8 Performed By: #### L500.2500 #### [facility] [address] [place], [address] TROPONIN-I Collected: 08/21/2018 Status: F Source: [facility] 11:25 PM [facility] REPOSITORY Order Comment: 'TROP' Serial specimen #1, #2 or #3: 2 TYPE CODE TESTS RESULT OUT OF RANGE REFERENCE UNITS LAB L501.4010 <0.045 ng/mL Normal 0.021 TROPONIN-I Result Comment: TROPONIN-I EXPECTED VALUES <0.045 Negative 0.045 - 0.590 Consistent with Cardiac Damage > OR = 0.600 Critical Value Not every elevated troponin is indicative of NM. These values should be used with clinical judgement in examining the patient's clinical picture for diagnosis. To establish a diagnosis of NM versus myocardial injury, there must be a demonstrated rise and/or fall in the troponin values, in addition to ischemic symptoms, EKG changes, new regional wall motion abnormality, and/or angiographical evidence. PLEASE NOTE: REFERENCE RANGES EDITED 18 Performed By: #### L501.4010 #### [facility] [address] [place], [place], [address] BEDSIDE GLUCOSE Collected: 08/21/2018 Status: F Source: [facility] 10:35 PM [facility] REPOSITORY TYPE CODE TESTS RESULT OUT OF REFERENCE UNITS RANGE LAB L501.080 70-110 mg/dL High BEDSIDE GLU 186 Result Comment: MANAGEMENT OF PATIENT CARE PER NURSING PROTOCOL Performed By: #### L501.080 #### [facility] Point of Care [address] [place] [address] HISTORY AND PHYSICAL Observed: 08/21/2018 Status: F Source: [facility] EXAM 8:49 PM [facility] REPOSITORY [facility] Medical Records Department [address] [place] [address] History and Physical 08/21/182000 MR#: [id number] Acct: [id number] Name: WILLIAMS BURGOS Rep #: [id number] : 1970 47 From: Oscar Ag MD PCP: Anderson Gaston MD Status: ADM IN Y Location: [place] [address]-1 ADDENDUM by Oscar Ag MD on 08/21/18 at 2049 Code Visit He now has T wave inversions in Lead 3 and in aVF which were not there on his previous EKG, he is currently denying chest pain and feels ok, Will obtain serial troponins as well as an EKG/Echo in the am 08/21/182048 <Electronically signed by Oscar Ag MD> Date Oscar Ag MD cc: Anderson Gaston MD; Oscar Ag MD * Signed Problem List (1) Anemia of chronic renal failure, stage 4 (severe) Status: Chronic (2) Acute on chronic diastolic CHF (congestive heart failure) Status: Acute (3) Diabetic neuropathy Status: Chronic (4) Diabetic nephropathy Status: Chronic (5) Diabetic retinopathy Status: Chronic (6) HTN (hypertension) Status: Chronic Qualifiers: (7) HLD (hyperlipidemia) Status: Chronic Qualifiers: (8) Anxiety and depression Status: Chronic (9) GERD (gastroesophageal reflux disease) Status: Chronic Qualifiers: History of Present Illness Date of Admission: 08/21/18 Chief Complaint: SOB The patient is a 47 year old M with PMH as below who presents with a 1-2-week history of worsening shortness of breath and a 20 pound weight gain. Also of note he has had difficulty controlling his blood pressures it appears since November of this year and has had been trialed on multiple different medications. He currently denies any headaches, vision changes, lightheadedness, dizziness, or syncope. He acknowledges the fact that a lot of the medical issues that he is suffering is because he was noncompliant with his diabetic medications as well as his diet. In the ER he was given a dose of 80 mg of IV Lasix, and was found to have a BNP of 638 which is confounded from his renal failure. Also his creatinine is a little bit higher than it had has been at 5.60 and he just recently had the creation of a fistula in his right wrist on August 08. His most recent echo was in November of this year which demonstrated an EF of 65%. Past Medical History Past Medical History (Chronic Problems): Chronic Problems (Last Reviewed 07/18/18 @ 14:09 by Luzmaria Mccullough) Ectopic cardiac beats (Chronic) Anemia of chronic renal failure, stage 4 (severe) (Chronic) Chronic renal failure, stage 4 (severe) (Chronic) Is currently following with nephrology. Also following with urology. Is trying to follow his low protein diet and feels he is doing well with it. Obesity (BMI 30-39.9) (Chronic) Noncompliance (Chronic) Diabetic neuropathy (Chronic) Diabetic nephropathy (Chronic) Diabetic retinopathy (Chronic) HTN (hypertension) (Chronic) HLD (hyperlipidemia) (Chronic) Blind left eye (Chronic) Diabetes mellitus type II, uncontrolled (Chronic) Dx : 1993 Discussed with patient need to check BG in pairs, learn carb counting and then we can determine I/C ratio for him at last visit. is doing well with his diet. He stopped his basalglar. He is willing to start again at lower dose and titrate back up. He will start at 10 units and increase by 2-3 units every 3 days if he is waking with higher BG than he went to bed with. I have also decrease his correction to 1-50 so that he is not going low after correction. I have given he an alternative correction scale to use if he needs less correction when he begins with higer dose of basaglar and finds his current correction may be too strong. On statin On asa Anxiety and depression (Chronic) GERD (gastroesophageal reflux disease) (Chronic) Chewing tobacco nicotine dependence (Chronic) History of acute myocardial infarction (Chronic) Medical History: Medical History (Last Reviewed 07/18/18 @ 14:09 by Luzmaria C Siders) Anasarca associated with disorder of kidney (Acute) N04.9 Anemia of chronic renal failure, stage 4 (severe) (Chronic) N18.4, D63.1 Autonomic neuropathy (Suspected) G90.9 Chronic renal failure, stage 4 (severe) (Chronic) N18.4 Is currently following with nephrology. Also following with urology. Is trying to follow his low protein diet and feels he is doing well with it. Retention, urine (Acute) R33.9 Acute on chronic diastolic CHF (congestive heart failure) (Acute) I50.33 Acute hypoxemic respiratory failure (Ruled-out) J96.01 Hypoglycemia (Acute) E16.2 resolved in ED Acute respiratory failure with hypoxia (Ruled-out) J96.01 Obesity (BMI 30-39.9) (Chronic) E66.9 Noncompliance (Chronic) Z91.19 Diabetic neuropathy (Chronic) E11.40 Diabetic nephropathy (Chronic) E11.21 Diabetic retinopathy (Chronic) E11.319 HTN (hypertension) (Chronic) I10 HLD (hyperlipidemia) (Chronic) E78.5 Blind left eye (Chronic) H54.40 Diabetes mellitus type II, uncontrolled (Chronic) E11.65 Dx : 1993 Discussed with patient need to check BG in pairs, learn carb counting and then we can determine I/C ratio for him at last visit. is doing well with his diet. He stopped his basalglar. He is willing to start again at lower dose and titrate back up. He will start at 10 units and increase by 2-3 units every 3 days if he is waking with higher BG than he went to bed with. I have also decrease his correction to 1-50 so that he is not going low after correction. I have given he an alternative correction scale to use if he needs less correction when he begins with higer dose of basaglar and finds his current correction may be too strong. On statin On asa Anxiety and depression (Chronic) F41.9, F32.9 GERD (gastroesophageal reflux disease) (Chronic) K21.9 Chewing tobacco nicotine dependence (Chronic) F17.220 ILDA (acute kidney injury) (Ruled-out) N17.9 Right leg pain (Resolved) M79.604 Chronic ulcer of 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 (Resolved) L97.912 Cellulitis and abscess of right leg (Resolved) L03.115, L02.415 History of acute myocardial infarction (Chronic) I25.2 Kidney failure N19 Kidney stones N20.0 Pneumonia J18.9 Vision problems H54.7 Hypertensive emergency (Resolved) I16.1 Hypokalemia (Resolved) E87.6 Allergies No Known Allergies Allergy (Verified 08/04/18 09:24) Home Medications: Ambulatory Orders Medication Instructions Recorded Gabapentin [Neurontin] 300 mg PO TIDCM 07/15/13 Bupropion HCl [Wellbutrin Xl] 300 mg PO DAILY 05/06/17 Atorvastatin Calcium [Lipitor] 20 mg PO QHS 11/19/17 Surgical History: Surgical History (Last Updated 07/18/18 @ 14:10 by Luzmaria Mccullough) History of appendectomy Z90.49 History of eye surgery Z98.890 Lt retinal tear History of cholecystectomy Z90.49 Surgical History: cholecystectomy, - Psychiatric History: Anxiety, Depression Smoking Status: Never smoker Tobacco Use: Chew Alcohol: None Drugs: None - *Family History Maternal Family History: Family History (Last Reviewed 07/18/18 @ 14:10 by Luzmaria Mccullough) Mother Heart disease Hypertension Father Cancer Brother Cancer Diabetes Sister Diabetes History Items: Heart Disease Paternal Family History: Family History (Last Reviewed 07/18/18 @ 14:10 by Luzmaria Mccullough) Mother Heart disease Hypertension Father Cancer Brother Cancer Diabetes Sister Diabetes History Items: Cancer - Father w/ Colon CA. Sibling Family History: Family History (Last Reviewed 07/18/18 @ 14:10 by Luzmaria Mccullough) Mother Heart disease Hypertension Father Cancer Brother Cancer Diabetes Sister Diabetes History Items: Diabetes - sister, brother who passed, no kidney disease Review of Systems Constitutional: Denies: Chills, Fever, Weight Change HEENT: Denies: Head Aches, Sinus Congestion, Sinus Drainage Cardiovascular: Reports: Edema, Orthopnea. Denies: Chest Pain, Palpitations Respiratory: Reports: Shortness of Breath. Denies: Cough, Shortness of breath at rest, Sputum production Gastrointestinal: Denies: Abdominal Pain, Nausea, Vomiting Genitourinary: Denies: Dysuria Musculoskeletal: Denies: Joint Pain, Joint Tenderness Skin: Denies: Rash, Wounds Neurological: Denies: Numbness, Tingling, Focal weakness Psychiatric: Denies: Anxiety, Depression Hematologic/ Lymphatic: Denies: Easy Bruising, Easy Bleeding VTE Information - Inpt Only VTE Present on Admission: No - Physical Exam General: Alert, Oriented x3, Cooperative, No apparent distress HEENT: Atraumatic, PERRLA, EOMI, Normocephalic Oral: Dry Mucosa Neck: Supple, No JVD Lungs: Clear to auscultation, Normal air movement, No rhonchi, No wheeze, No rales Cardiovascular: Regular rate, Regular Rhythm, Normal S1, Normal S2, No murmurs Abdomen: Soft, Non Tender, Non-Distended, No Hepato-splenomegaly Extremities: Edema - 2+ pitting Skin: No rashes, No breakdown Neurological: Neuro grossly intact, Sensory exam intact to light touch and pain Psych/Mental Status: Normal Affect, Appropriate Vital Signs Temp Pulse Resp BP Pulse Ox 98.7 F 72 18 182/96 H 94 08/21/18 19:42 08/21/18 19:42 08/21/18 19:42 08/21/18 19:42 08/21/18 19:42 Oxygen Delivery Method Room Air Weight: 240 lb 8 oz Body Mass Index (BMI) 36.6 Finger Stick Blood Glucose 149 Laboratory Tests Past 24 Hrs WBC 5.6 RBC 3.48 L Hgb 10.3 L Hct 30.3 L MCV 87.1 MCH 29.6 MCHC 34.0 RDW 13.3 WBC RBC Hgb Hct MCV MCH MCHC RDW RDW Differential Plt Count Assessment/Plan All Active Problems (Last Reviewed 07/18/18 @ 14:09 by Luzmaria Mccullough) Anasarca associated with disorder of kidney (Acute) Retention, urine (Acute) Acute on chronic diastolic CHF (congestive heart failure) (Acute) Acute hypoxemic respiratory failure (Ruled-out) Hypoglycemia (Acute) Acute respiratory failure with hypoxia (Ruled-out) ILDA (acute kidney injury) (Ruled-out) Right leg pain (Resolved) Chronic ulcer of 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 (Resolved) Cellulitis and abscess of right leg (Resolved) Hypertensive emergency (Resolved) Hypokalemia (Resolved) 1. Acute on chronic diastolic CHF/HTN urgency/CKD4/Anemia of chronic disease - Will obtain echo - IV lasix 40 mg BID - C/w his home medications and monitor his BP in response to the lasix - Troponin 0.017 and BNP was 638 though partly elevated from renal failure - Daily weight and fluid restriction to 1500 cc 2. Uncontrolled DM2 with nephropathy, retinopathy, and neuropathy - Continued his home insulin with SSI - Accuchecks, BG 152 today - c/w his neurontin 3. Depression/Anxiety - stable at the moment - c/w wellbutrin DVT: Heparin Code Visit Inpatient E AND M: [id number] Init Hosp L3 08/21/18 2017 <Electronically signed by Oscar Ag MD> Date Oscar Ag MD Cosigner Signature: Date (if applicable) CC: Anderson Gaston MD; Oscar Ag MD Signed EMERGENCY DEPARTMENT Observed: 08/21/2018 Status: F Source: [facility] SUMMARY 7:04 PM [facility] REPOSITORY [facility] Medical Records Department [address] [place] [address] Emergency Department Summary 08/21/18 1901 MR#: [id number] Acct: [id number] Name: WILLIAMS BURGOS Rep #: [id number] : 1970 47 From: Toni Nelson DO PCP: Anderson Gaston MD Status: REG ER - ER Visit Summary Date of Service: 08/21/18 Chief Complaint: [Swelling] History of Present Illness: The patient is a 47 M [presents the emergency department complaint of 2 weeks worth of edema and shortness of breath. Patient complains of exertional dyspnea. He has had a slight cough. He denies any fever. Said some intermittent chest discomfort retrosternally. Patient has a history of stage IV kidney disease and had a fistula placed in the right wrist recently. Patient states that he still makes urine. He normally takes 20 mg of Lasix twice daily at home. Patient does have a history of diabetes, hypertension, high cholesterol. Patient states that he saw his primary care physician 2 days ago and no changes in his medications were made. Patient does not see his ring cutter lathe operator again until the of this month.] Physical Examination: [HEENT-PERRLA, EOMI. Cranial nerves II through XII grossly intact. TMs clear. Mucous membranes moist. No adenopathy. Patient has JVD Cardiovascular-regular rate and rhythm without murmur or ectopy Lungs-good aeration noted with rales in both bases. No accessory muscle use or retractions. No significant tachypnea at rest. Abdomen-normoactive bowel sounds, soft, nontender, no rebound or rigidity, no peritoneal signs. Extremities-intact 4, normal range of motion, normal pulses, atraumatic. Patient has +3 edema both lower extremities up to the thighs.] Test Results: [EKG obtained on arrival showed a sinus rhythm with a ventricular rate of [address] changes noted. Patient did have flipped T waves in the inferior leads and in lead V6 which are new when compared with prior EKG. CBC with differential obtained showed a white count of 5.6, hemoglobin 10, hematocrit 30, platelets 202. Chemistries unremarkable. BUN was 66 and creatinine 5.6. LFTs unremarkable. Alk phos was slightly elevated 152. Troponin was 0.017. BNP was 638. Chest x-ray obtained showed diffuse edema with bilateral effusions.] Emergency Department Course and Treatment: [Patient received 80 mg of Lasix IV] Treatment Plan: [Admit for diuresis and further management of his CHF and chronic renal failure] Disposition: [Admit] Impression: [Chronic renal failure CHF Edema] This note was generated with [employer] dictation software. It may contain incorrect words, spelling, and punctuation that were not noted in review of the chart prior to signing ED Disposition - Plan for ED Patient: Chief Complaint: Edema Referrals: Anderson Gaston MD [Primary Care Provider] - What to do if you have Problems For any increased pain, shortness of breath, bleeding, nausea or vomiting, chest pain, or any unexpected problems, contact your Primary Care Provider. Call [facility] ([phone]) or report to the closest Emergency Room. Call 911 if necessary. 08/21/18 9438 <Electronically signed by Toni Nelson DO> Date Remus Ungur DO Cosigner Signature (If Indicated): Date CC: Anderson Gaston MD URINALYSIS, COMPLETE Collected: 08/21/2018 Status: F Source: [facility] 6:15 PM [facility] REPOSITORY Order Comment: Order Date: 08/21/18 How was Urine Obtained? CLEAN CATCH TYPE CODE TESTS RESULT OUT OF RANGE REFERENCE UNITS LAB L400.3000 Yellow COLOR Normal Yellow LAB L400.3050 Clear Normal CLARITY Clear LAB L400.3200 Normal mg/dl High GLUCOSE, UR 250 LAB L400.3300 Negative mg/dL Normal BILIRUBIN URINE Negative LAB L400.3400 Negative mg/dl Normal KETONE UR Negative LAB L400.3465 1.002-1.030 Normal SP.GR. DIPSTX 1.015 LAB L400.3550 5.0 - 8.0 pH UR Normal 6.0 LAB L400.3600 Negative mg/dl High PROT DIPSTX 500 LAB L400.3700 Normal mg/dl Normal UROBILI Normal LAB L400.3750 Negative Normal NITRITE UR Negative LAB L400.3780 Negative /ul High 50 OCCULT BLOOD-UR LAB L400.3800 Negative /ul LEUK Normal ESTERASE Negative LAB L400.4050 0-5 /hpf WBC 0 Normal SEEN LAB L400.4100 0-5 /hpf Normal RBC-UA 0-5 SEEN LAB L400.4150 0-5 /hpf SQUAM 0 Normal EPI SEEN LAB L400.4300 None Seen /hpf 0 Normal BACTERIA SEEN LAB L400.4350 <or=2+ /hpf 0 Normal MUCUS, URINE SEEN Performed By: #### L400.0001 #### [facility] [address] [place], [address] CBC W/DIFF, AUTOMATED Collected: 08/21/2018 Status: F Source: [facility] 6:03 PM [facility] REPOSITORY TYPE CODE TESTS RESULT OUT OF RANGE REFERENCE UNITS LAB L100.1000 4.4-11.0 K/mm3 Normal WBC 5.6 LAB L100.1200 4.6-6.2 M/mm3 Low RBC 3.48 LAB L100.1300 13.0-16.5 g/dl Low HGB 10.3 LAB L100.1400 40-54 % Low HCT 30.3 LAB L100.1500 80-94 fL Normal MCV 87.1 LAB L100.1600 27.0-32.0 pg Normal MCH 29.6 LAB L100.1700 32-36 g/gl Normal MCHC 34.0 LAB L100.1810 11.6-14.6 % Normal RDW CV 13.3 LAB L100.1820 35.1-43.9 fl Normal RDW SD 42.5 LAB L100.1900 150-450 K/mm3 Normal PLT 202 LAB L100.2000 6.2-12.0 fl Normal MPV 9.0 LAB L100.2100 47-70 % Normal NEUT% 67.5 LAB L100.2200 19-41 % Normal LY% 24.2 LAB L100.2300 0-10 % Normal MONO% 7.0 LAB L100.2400 0-5 % Normal EO% 0.9 LAB L100.2500 0-1 % Normal BASO% 0.4 LAB L100.2550 0.0-0.9 % Normal IM GRAN % 0.000 Result Comment: IG% - Immature Granulocytes (promyelocytes, myelocytes and metamyelocytes) > 1% indicates that a LEFT SHIFT is Present. LAB L100.2620 2.0-7.7 X10 3/uL Normal Absolute Neut 3.8 LAB L100.2720 0.83-4.51 X10 3/ul Normal Absolute Lymph 1.36 Performed By: #### L100.0100 #### [facility] [address] [place], [address] COMPREHENSIVE METABOLIC Collected: 08/21/2018 Status: F Source: [facility] 6:03 PM [facility] REPOSIT[facility] TYPE CODE TESTS RESULT OUT OF RANGE REFERENCE UNITS LAB L501.0100 74-106 mg/dL High GLU 152 Result Comment: Fasting Glucose result greater than or equal to 126 mg/dL suggests DIABETES MELLITUS per A.D.A. criteria. Please note revised GLUCOSE reference range effective 2017. LAB L501.1000 7-18 mg/dL High BUN 66 LAB L501.1100 0.70-1.30 mg/dL High CREAT,SERUM 5.60 Result Comment: The validity of the calculated GFR AND GFRAA in patients over 70 years has not been determined. Clinical correlation is essential. LAB L501.1110 >60 mL/min Low EST GFR 12 Result Comment: Non- GFR Calc LAB L501.1115 >60 mL/min Low EST GFR - AA 14 Result Comment: GFR Calc LAB L501.1255 ml/min Normal Estimated CRCL 15.44 LAB L501.1300 10-20 RATIO Normal BUN/CRE 11.8 LAB L501.1500 6.4-8. g/dL Low 2 T PROT 5.8 LAB L501.1800 3.2-5. g/dL Low 0 ALB 2.2 LAB L501.1950 2.2-4. g/dL Normal 2 GLOB 3.6 LAB L501.2000 0.9-2. RATIO Low 4 A/G 0.6 LAB L501.2200 8.5-10 mg/dL Low .1 CA 7.8 LAB L501.4100 15-37 U/L Normal AST 26 LAB L501.4305 45-117 U/L High ALK P 152 LAB L501.4405 16-61 U/L Normal ALT 37 LAB L501.4600 0.20-1 mg/dL Normal .00 T BILI 0.20 LAB L501.5300 136-14 mmol/L Normal 5 NA 143 LAB L501.5600 3.5-5. mmol/L Normal 1 K 4.7 LAB L501.5900 98-107 mmol/L High CL 114 LAB L501.6100 21.0-3 mmol/L Normal 2.0 CO2 23.0 LAB L501.6200 5-15 Normal GAP 6 Performed By: #### L500.4050, L501.4010 #### [facility] [address] [place], [address] TROPONIN-I Collected: 08/21/2018 Status: F Source: [facility] 6:03 PM [facility] REPOSITORY TYPE CODE TESTS RESULT OUT OF RANGE REFERENCE UNITS LAB L501.4010 <0.045 ng/mL Normal 0.017 TROPONIN-I Result Comment: TROPONIN-I EXPECTED VALUES <0.045 Negative 0.045 - 0.590 Consistent with Cardiac Damage > OR = 0.600 Critical Value Not every elevated troponin is indicative of NM. These values should be used with clinical judgement in examining the patient's clinical picture for diagnosis. To establish a diagnosis of NM versus myocardial injury, there must be a demonstrated rise and/or fall in the troponin values, in addition to ischemic symptoms, EKG changes, new regional wall motion abnormality, and/or angiographical evidence. PLEASE NOTE: REFERENCE RANGES EDITED 18 Performed By: #### L500.4050, L501.4010 #### [facility] [address] [place], [address] BNP,B-TYPE NATRIURETIC Collected: 08/21/2018 Status: F Source: [facility] 6:03 PM [facility] REPOSITORY TYPE CODE TESTS RESULT OUT OF RANGE REFERENCE UNITS LAB L503.6620 0-100 pg/mL High B-TYPE 638.0 ZARI PEP Performed By: #### L503.6620 #### [facility] [address] [place], [address] CHEST 1 VIEW Observed: 08/21/2018 Status: F Source: [facility] (PORTABLE) 5:41 PM [facility] REPOSITORY [facility] Imaging Services [address] [place] [address] Chest 1 View (Portable) MR#: [id number] Acct: [id number] Name: WILLIAMS BURGOS Rep #: [id number] : 1970 M 47 From: Luis A De Leon MD PCP: Anderson Gaston MD Status: REG ER Study: Chest 1 View (Portable) Date of Exam: 08/21/18 Exam# [id number] Ordering Dr: Toni Nelson DO STUDY: X-RAY CHEST REASON FOR EXAM: Male, 47 years old. Edema TECHNIQUE: Single AP portable view of the chest. COMPARISON: 02/26/2018 FINDINGS: Lungs are expanded with superimposed interstitial edema, bilateral pleural effusions. Findings are consistent with CHF. No organized infiltrate. Normal size heart. Normal mediastinum and reena. Normal visualized pulmonary arteries. Normal visualized aortic arch and descending thoracic aorta. Normal visualized thoracic spine. Normal visualized ribs, clavicles, and shoulders. There is no demonstrated abnormality of the visualized soft tissue structures of the upper abdomen. RAD/Chest 1 View (Portable) IMPRESSION: Diffuse interstitial edema with bilateral pleural effusions. Follow-up recommended to assure resolution Electronically Signed: Pranav De Leon MD at 18:30 EST , Service support , CC: Anderson Gaston MD; Toni Nelson DO Hand Packager: Signed PROGRESS Observed: 08/19/2018 Status: COMPLETED Source: [place] 3:02 PM [facility] REPOSITORY HNO ID: [id number] Author: Anderson Gaston Service: (none) Author Type: Physician Type: Progress Notes Filed: 08/19/2018 5:21 PM Note Text: Reason for Visit Patient presents with: Same Day Appointment: cough, wheezing,short of breath x 1 week Williams Burgos is a 47 year old male who presents here today for Above Complaints.. Health Maintenance BP CONTROLLED (<130/80) HPI Williams has gained 9 pounds in the past 1 week, he looks swollen. Is getting sob when he walks, he is fine when he sits. He just got his fistula for dialysis placed, and that is healing well. He denies fevers or chills. He is making less urine. Currently he is on Augmentin 2 times a day. Was given by urgent care last week. Last visit a month ago patient had chest xray and echo which showed ef of 55 but he had concentric LVH., he today has swelling of the legs, sob and all other features of chf that is normal controlled No problem-specific Assessment AND Plan notes found for this encounter. PAST MEDICAL HISTORY Diagnosis Date - Bronchitis - Depression - Detached retina - DM type 2, goal HbA1c < 7% ([facility]) - GERD (gastroesophageal reflux disease) - Hyperlipidemia - Kidney stones - PNA (pneumonia) - Unspecified essential hypertension - Vitamin D deficiency PAST SURGICAL HISTORY Procedure Laterality Date - AV SHUNT FOR DIALYSIS Right 08/08/2018 Done at [facility] by Satish Phan MD - CYSTOSCOPY,REMV CALCULUS,COMPLIC 1999 - PAST SURGICAL HISTORY OF Left 2012 AND 2014 removal eye fluid with instillation oil - REMOVAL GALLBLADDER 1998 Cholecystectomy FAMILY HISTORY Problem Relation Age of Onset - Colon Cancer Father 53 - Diabetes Brother 52 - Diabetes Sister - Diabetes Mother 78 - Cancer Brother 49 lung - Diabetes Son Social History Substance Use Topics - Smoking status: Never Smoker - Smokeless tobacco: Former User Types: Snuff Comment: snuff x 33 years - Alcohol use Yes Comment: rarely Past medical history, appointments, medications, allergies reviewed. Pertinent Lab/Diagnostic Studies are reviewed and discussed today Current Outpatient Prescriptions: - >Compression Knee Highs 30-40 mm - ACETAMINOPHEN ORAL - amLODIPine (NORVASC) 5 mg tablet - amoxicillin-clavulanic acid (AUGMENTIN) 875-125 mg per tablet - aspirin 81 mg chewable tablet - atenolol (TENORMIN) 100 mg tablet - atorvastatin (LIPITOR) 20 mg tablet - azithromycin (ZITHROMAX) 250 mg tablet - benzonatate (TESSALON PERLES) 100 mg capsule - blood sugar diagnostic (BLOOD GLUCOSE TEST) test strip - Blood-Glucose Meter monitoring kit - buPROPion XL (WELLBUTRIN XL) 300 mg 24 hr tablet - calcitriol (ROCALTROL) 0.5 mcg capsule - CPAP - furosemide (LASIX) 20 mg tablet - gabapentin (NEURONTIN) 300 mg capsule - hydrALAZINE (APRESOLINE) 25 mg tablet - insulin aspart U-100 (NOVOLOG FLEXPEN U-100 INSULIN) 100 unit/mL inpn - insulin glargine (LANTUS SOLOSTAR U-100 INSULIN) 100 unit/mL (3 mL) inpn - Insulin [place], Disposable, (BD ULTRA-FINE SANDRA PEN NEEDLE) 32 gauge x 5/32 ndle - Lancets lancets - lisinopril (ZESTRIL, PRINIVIL) 20 mg tablet - ondansetron orally disintegrating (ZOFRAN ODT) 4 mg disintegrating tablet - perflutren lipid microspheres (DEFINITY) 1.1 mg/mL injection (to be provided with echo procedure) - Ranitidine HCl (ZANTAC) 300 mg tablet - tamsulosin ER (FLOMAX) 0.4 mg cap Review of Systems CONSTITUTIONAL: No fevers, chills night sweats, unintended weight loss CARDIOVASCULAR: No chest pain, dyspnea, palpitations, orthopnea, PND, ankle edema. PULM: No dyspnea, unexplained cough. GI: No dysphagia/odynophagia, problematic reflux, constipation, diarrhea, changes in stool habits, hematochezia, melena. : No new urinary complaints, including dysuria, gross hematuria or pyuria. NEURO: No new balance problems, peripheral weakness/paresthesias or numbness of concern. Physical Exam BP 150/68 (BP Site: Left Arm, BP Position: Sitting, BP Cuff Size: Large Adult) Pulse 74 Temp 36.8 ?C (98.2 ?F) Resp 16 Ht 170.2 cm (5' 7) Wt 109.8 kg (242 lb) SpO2 94% BMI 37.90 kg/m? General appearance: Well appearing, alert, in no acute distress, well nourished. Skin: Skin color, texture, turgor normal, no suspicious rashes or lesions Head: Normocephalic, no masses, lesions, tenderness or abnormalities Eyes: Anicteric sclera. Pupils are equally round and reactive to light. Extraocular movements are intact. Lungs: decreased breath sounds b/l in the posterior aspect with dullness to percussion Heart: RRR without murmur, gallop, or rubs. Extremities: Edema 3+, skin discoloration, clubbing or cyanosis. Good capillary refill. Hand: right hand fistula seems to be healing with out any signs of infection. ASSESSMENT/PLAN: 1. Acute diastolic CHF (congestive heart failure) (HCC) - ICD9: 428.31, 428.0, ICD10: I50.31 (primary diagnosis) Started him on lasix at 40 mgs a day with potassium cmp check in a week 2. SOB (shortness of breath) - ICD9: 786.05, ICD10: R06.02 If he does not get better in 4 days he needs to call us back or if he gets worse at any time he needs to call us 3. Anemia due to stage 4 chronic kidney disease (HCC) - ICD9: 285.21, 585.4, ICD10: N18.4, D63.1 - CBC + DIFF - BASIC METABOLIC PNL ANDERSON GASTON MD CNOV Observed: 08/19/2018 Status: COMPLETED Source: [place] 2:20 PM [facility] REPOSITORY Office Visit (INTMWS) WILLIAMS BURGOS ([id number]) 1970 M Date Time Provider Department 08/19/18 2:20 PM ANDERSON GASTON INTMWS During your visit today, we recorded the following information about you: Temperature Pulse Respiration Blood pressure 98.2 degrees 74/minute 16/minute 150/68 Weight Height 109.8 kg 1.702 m ANDERSON GASTON MD 08/19/2018 5:21 PM Signed Reason for Visit Patient presents with: Same Day Appointment: cough, wheezing,short of breath x 1 week Williams Burgos is a 47 year old male who presents here today for Above Complaints.. Health Maintenance BP CONTROLLED (<130/80) HPI Williams has gained 9 pounds in the past 1 week, he looks swollen. Is getting sob when he walks, he is fine when he sits. He just got his fistula for dialysis placed, and that is healing well. He denies fevers or chills. He is making less urine. Currently he is on Augmentin 2 times a day. Was given by urgent care last week. Last visit a month ago patient had chest xray and echo which showed ef of 55 but he had concentric LVH., he today has swelling of the legs, sob and all other features of chf that is normal controlled No problem-specific Assessment AND Plan notes found for this encounter. PAST MEDICAL HISTORY Diagnosis Date - Bronchitis - Depression - Detached retina - DM type 2, goal HbA1c < 7% ([facility]) - GERD (gastroesophageal reflux disease) - Hyperlipidemia - Kidney stones - PNA (pneumonia) - Unspecified essential hypertension - Vitamin D deficiency PAST SURGICAL HISTORY Procedure Laterality Date - AV SHUNT FOR DIALYSIS Right 08/08/2018 Done at [facility] by Satish Phan MD - CYSTOSCOPY,REMV CALCULUS,COMPLIC 1999 - PAST SURGICAL HISTORY OF Left 2012 AND 2014 removal eye fluid with instillation oil - REMOVAL GALLBLADDER 1998 Cholecystectomy FAMILY HISTORY Problem Relation Age of Onset - Colon Cancer Father 53 - Diabetes Brother 52 - Diabetes Sister - Diabetes Mother 78 - Cancer Brother 49 lung - Diabetes Son Social History Substance Use Topics - Smoking status: Never Smoker - Smokeless tobacco: Former User Types: Snuff Comment: snuff x 33 years - Alcohol use Yes Comment: rarely Past medical history, appointments, medications, allergies reviewed. Pertinent Lab/Diagnostic Studies are reviewed and discussed today Current Outpatient Prescriptions: - >Compression Knee Highs 30-40 mm - ACETAMINOPHEN ORAL - amLODIPine (NORVASC) 5 mg tablet - amoxicillin-clavulanic acid (AUGMENTIN) 875-125 mg per tablet - aspirin 81 mg chewable tablet - atenolol (TENORMIN) 100 mg tablet - atorvastatin (LIPITOR) 20 mg tablet - azithromycin (ZITHROMAX) 250 mg tablet - benzonatate (TESSALON PERLES) 100 mg capsule - blood sugar diagnostic (BLOOD GLUCOSE TEST) test strip - Blood-Glucose Meter monitoring kit - buPROPion XL (WELLBUTRIN XL) 300 mg 24 hr tablet - calcitriol (ROCALTROL) 0.5 mcg capsule - CPAP - furosemide (LASIX) 20 mg tablet - gabapentin (NEURONTIN) 300 mg capsule - hydrALAZINE (APRESOLINE) 25 mg tablet - insulin aspart U-100 (NOVOLOG FLEXPEN U-100 INSULIN) 100 unit/mL inpn - insulin glargine (LANTUS SOLOSTAR U-100 INSULIN) 100 unit/mL (3 mL) inpn - Insulin [place], Disposable, (BD ULTRA-FINE SANDRA PEN NEEDLE) 32 gauge x 32 ndle - Lancets lancets - lisinopril (ZESTRIL, PRINIVIL) 20 mg tablet - ondansetron orally disintegrating (ZOFRAN ODT) 4 mg disintegrating tablet - perflutren lipid microspheres (DEFINITY) 1.1 mg/mL injection (to be provided with echo procedure) - Ranitidine HCl (ZANTAC) 300 mg tablet - tamsulosin ER (FLOMAX) 0.4 mg cap Review of Systems CONSTITUTIONAL: No fevers, chills night sweats, unintended weight loss CARDIOVASCULAR: No chest pain, dyspnea, palpitations, orthopnea, PND, ankle edema. PULM: No dyspnea, unexplained cough. GI: No dysphagia/odynophagia, problematic reflux, constipation, diarrhea, changes in stool habits, hematochezia, melena. : No new urinary complaints, including dysuria, gross hematuria or pyuria. NEURO: No new balance problems, peripheral weakness/paresthesias or numbness of concern. Physical Exam BP 150/68 (BP Site: Left Arm, BP Position: Sitting, BP Cuff Size: Large Adult) Pulse 74 Temp 36.8 ?C (98.2 ?F) Resp 16 Ht 170.2 cm (5' 7) Wt 109.8 kg (242 lb) SpO2 94% BMI 37.90 kg/m? General appearance: Well appearing, alert, in no acute distress, well nourished. Skin: Skin color, texture, turgor normal, no suspicious rashes or lesions Head: Normocephalic, no masses, lesions, tenderness or abnormalities Eyes: Anicteric sclera. Pupils are equally round and reactive to light. Extraocular movements are intact. Lungs: decreased breath sounds b/l in the posterior aspect with dullness to percussion Heart: RRR without murmur, gallop, or rubs. Extremities: Edema 3+, skin discoloration, clubbing or cyanosis. Good capillary refill. Hand: right hand fistula seems to be healing with out any signs of infection. ASSESSMENT/PLAN: 1. Acute diastolic CHF (congestive heart failure) (HCC) - ICD9: 428.31, 428.0, ICD10: I50.31 (primary diagnosis) Started him on lasix at 40 mgs a day with potassium cmp check in a week 2. SOB (shortness of breath) - ICD9: 786.05, ICD10: R06.02 If he does not get better in 4 days he needs to call us back or if he gets worse at any time he needs to call us 3. Anemia due to stage 4 chronic kidney disease (HCC) - ICD9: 285.21, 585.4, ICD10: N18.4, D63.1 - CBC + DIFF - BASIC METABOLIC PNL ANDERSON GASTON MD Referring Provider: ANDERSON GASTON [[id number]] Allergies As of Date: 08/19/2018 (No Known Allergies) Date Reviewed: 08/19/2018 Reviewed by: Catalina Lala LPN - Fully Assessed Reason for Visit: Same Day Appointment [255] Cmt: cough, wheezing,short of breath x 1 week Primary Visit Diagnosis:Acute diastolic CHF (congestive heart failure) (HCC) [I50.31] Other Visit Diagnoses:SOB (shortness of breath) [R06.02] Anemia due to stage 4 chronic kidney disease (HCC) [N18.4, D63.1] Order(s):furosemide (LASIX) 20 mg tabletTake 1 tablet by mouth twice daily. Morning and afternoonDisp: 60 tabletRfl: 2 potassium chloride (K-TAB) 10 mEq tabletTake 1 tablet by mouth once daily.Disp: 30 tabletRfl: 1 CBC + DIFF [SQCBCDIF] Order #: [id number] FUTURE BASIC METABOLIC PNL [SQBMP] Order #: [id number] FUTURE Prescriptions as of 08/19/2018 Sig: COMPOUNDED PRESCRIPTION KNEE HIGH COMPRESSION STOCKIN* ACETAMINOPHEN ORAL Take by mouth. 1000 mg bid f* AMLODIPINE 5 MG TABLET Take 1 tablet by mouth once d* AMOXICILLIN 875 MG-POTASSIUM * Take 1 tablet by mouth twice * ASPIRIN 81 MG CHEWABLE TABLET Take 81 mg by mouth once adela* ATENOLOL 100 MG TABLET Take 1 tablet by mouth once d* ATORVASTATIN 20 MG TABLET Take 1 tablet by mouth at bed* BENZONATATE 100 MG CAPSULE Take 2 capsules by mouth thre* BLOOD SUGAR DIAGNOSTIC STRIPS TEST BLOOD SUGAR 3 TIMES PER * BLOOD-GLUCOSE METER KIT Glucose Meter of Choice - Kit* BUPROPION XL 300 MG 24 HR TAB TAKE 1 TABLET BY MOUTH ONCE D* CALCITRIOL 0.5 MCG CAPSULE Take 1 capsule by mouth once * CPAP Initiate Auto PAP @ 5- 20 cm o* FUROSEMIDE 20 MG TABLET Take 1 tablet by mouth twice * GABAPENTIN 300 MG CAPSULE Take 1 capsule by mouth three* HYDRALAZINE 25 MG TABLET Take 1 tablet by mouth three * INSULIN ASPART U-100 100 UNI* Inject insulin three times da* INSULIN GLARGINE (U-100) 100 * Inject 35 Units subcutaneousl* PEN NEEDLE, DIABETIC 32 GAUGE* Use one needle for each dose,* LANCETS LANCETS FOR GLUCOSE METER. TE* LISINOPRIL 20 MG TABLET Take 1 tablet by mouth once d* ONDANSETRON 4 MG DISINTEGRATI* Take 1 tablet by mouth every * PERFLUTREN LIPID MICROSPHERES* Inject 1.3 mL intravenously a* POTASSIUM CHLORIDE ER 10 MEQ * Take 1 tablet by mouth once d* RANITIDINE 300 MG TABLET Take 1 tablet by mouth daily * TAMSULOSIN 0.4 MG CAPSULE TAKE 1 CAPSULE BY MOUTH ONCE * Problem List As Of Date 08/19/2018 Noted Resolved Uncontrolled type 2 diabetes mellitus with comp*INVALID FOR* More... Hypertension goal BP (blood pressure) < 140/90 *INVALID FOR* More... Other hyperlipidemia [E78.49] INVALID FOR* More... DEPRESSIVE DISORDER NEC [F32.9] INVALID FOR* More... ED (erectile dysfunction) [N52.9] INVALID FOR* Lower urinary tract symptoms (LUTS) [R39.9] INVALID FOR* History of kidney stones [Z87.442] INVALID FOR* Microscopic hematuria [R31.29] INVALID FOR* Diabetic polyneuropathy associated with type 2 *INVALID FOR* More... Acute pain of right shoulder [M25.511] INVALID FOR* More... Nausea [R11.0] INVALID FOR* More... Vomiting [R11.10] INVALID FOR* More... Moderate episode of recurrent major depressive *INVALID FOR* Stage 3 chronic kidney disease [N18.3] INVALID FOR* Right leg weakness [R29.898] INVALID FOR* Gait instability [R26.81] INVALID FOR* Prescriptions ordered this encounter Disp Refills Start End FUROSEMIDE 20 MG TABLET 60 t* 2 08/19/2018 Route: ORAL Sig: Take 1 tablet by mouth twice daily. Morning and afternoon POTASSIUM CHLORIDE ER 10 MEQ TABLET,* 30 t* 1 08/19/2018 Route: ORAL Sig: Take 1 tablet by mouth once daily. Medications Discontinued During This Encounter furosemide (LASIX) 20 mg tablet 60 t* 5 12/16/2017 08/19/2018 Route: ORAL Sig: Take 1 tablet by mouth twice daily. Disc: Reason for discontinue is not on file. azithromycin (ZITHROMAX) 250 mg tabl* 6 ta* 0 07/17/2018 08/19/2018 Route: ORAL Sig: Take 1 tablet by mouth once daily. Disc: Reason for discontinue is not on file. Encounter Status:Closed by ANDERSON GASTON MD on 08/19/18 PROGRESS Observed: 08/13/2018 Status: COMPLETED Source: [place] 3:34 PM [facility] [place] REPOSIT[facility] HNO ID: [id number] Author: Irma (Content Designer) Jasper Service: (none) Author Type: Nurse Practitioner Type: Progress Notes Filed: 08/13/2018 4:00 PM Note Text: CC: Patient presents with: Cough: Dry cough, fever, wheezing x 2 days HPI: Williams Burgos is a 47 year old male who presents to the office with complaint of respiratory symptoms, fever and rhinorrhea for 2 days. Symptoms started with rhinorrhea. Today associated symptoms includes nasal congestion, rhinorrhea- described as scant amount of clear secretions, facial pain/pressure frontal, fever tactile temperature elevation and fatigue. He denies ear pain, rash, vomiting and diarrhea. Treatments tried include OTC cough syrup and Throat lozenges with minor relief of symptoms. Sick contacts: no. Patient confirms a history of pneumonia and bronchitis. Non-smoker and without a history of seasonal allergies. The ROS is otherwise negative. The patient's pmh, medications, allergies, and past visits are reviewed. PHYSICAL EXAM: BP 162/100 Pulse 79 Temp 37.1 ?C (98.8 ?F) (Temporal Artery) Resp 16 Wt 105.7 kg (233 lb) SpO2 98% BMI 36.49 kg/m? General appearance: tired/ill appearing, alert, cooperative, pleasant, in no acute distress Head: Normocephalic Eyes: conjunctiva pink and moist, no icterus, sclera white, non-injected Ears: Right ear: Normal with small amount of cerumen noted in canal, TM - dull, . Left ear: Normal, TM - dull Nose: purulent rhinorrhea, mucosa erythematous and swollen. Oropharynx:mild erythema Neck:supple Heart: Negative. RRR without obvious murmur, gallop, or rubs. No ectopy. Lungs: clear to auscultation, without rales or wheeze, good air exchange ASSESSMENT/PLAN: 1. Acute non-recurrent frontal sinusitis - ICD9: 461.1, ICD10: J01.10 (primary diagnosis) - Given patient's compromised health status and recent fistula surgery will begin antibiotics - Will begin treatment with Augmentin 875 mg PO BID for 7 days - The patient should also be given nasal saline gtts and suction prn for the first 5-7 days of treatment. - Supportive care with plenty of fluids, rest, and analgesia prn. - Follow up in 3-5 days if symptoms persist or worsen. - AMOXICILLIN 875 MG-POTASSIUM CLAVULANATE 125 MG TABLET 2. Elevated blood pressure reading in office with diagnosis of hypertension - ICD9: 401.9, ICD10: I10 - suboptimal control, patient took BP medications just before visit - Continue current medication(s) - Encouraged dietary sodium restriction/DASH diet - Recommend home blood pressure monitoring, to bring results in on next visit - Recheck in 2 weeks, sooner should new symptoms or problems arise. - Goal of BP <140/90 - Recommended no refined sugar, low refined starch, healthy oil intake (olive oil), healthy protein (fish) along the lines of the Mediterranean diet. Prescription instructions reviewed with patient as applicable. Potential red flag symptoms discussed with the patient. Reviewed appropriate action plan to take if red flag symptoms occur. Patient agreeable to treatment plan. Irma Villa APRN.CNP CNOV Observed: 08/13/2018 Status: COMPLETED Source: [place] 3:20 PM [facility] REPOSIT[facility] Office Visit ([facility]) BURGOSWILLIAMS JENKINS ([id number]) 1970 M Date Time Provider Department 08/13/18 3:20 PM IRMA VILLA (EUGENIO) IN[facility] During your visit today, we recorded the following information about you: Temperature Pulse Respiration Blood pressure 98.8 degrees 79/minute 16/minute 154/88 Weight 105.7 kg Irma Villa APRN.CNP 08/13/2018 4:00 PM Signed CC: Patient presents with: Cough: Dry cough, fever, wheezing x 2 days HPI: Williams Burgos is a 47 year old male who presents to the office with complaint of respiratory symptoms, fever and rhinorrhea for 2 days. Symptoms started with rhinorrhea. Today associated symptoms includes nasal congestion, rhinorrhea- described as scant amount of clear secretions, facial pain/pressure frontal, fever tactile temperature elevation and fatigue. He denies ear pain, rash, vomiting and diarrhea. Treatments tried include OTC cough syrup and Throat lozenges with minor relief of symptoms. Sick contacts: no. Patient confirms a history of pneumonia and bronchitis. Non-smoker and without a history of seasonal allergies. The ROS is otherwise negative. The patient's pmh, medications, allergies, and past visits are reviewed. PHYSICAL EXAM: BP 162/100 Pulse 79 Temp 37.1 ?C (98.8 ?F) (Temporal Artery) Resp 16 Wt 105.7 kg (233 lb) SpO2 98% BMI 36.49 kg/m? General appearance: tired/ill appearing, alert, cooperative, pleasant, in no acute distress Head: Normocephalic Eyes: conjunctiva pink and moist, no icterus, sclera white, non-injected Ears: Right ear: Normal with small amount of cerumen noted in canal, TM - dull, . Left ear: Normal, TM - dull Nose: purulent rhinorrhea, mucosa erythematous and swollen. Oropharynx:mild erythema Neck:supple Heart: Negative. RRR without obvious murmur, gallop, or rubs. No ectopy. Lungs: clear to auscultation, without rales or wheeze, good air exchange ASSESSMENT/PLAN: 1. Acute non-recurrent frontal sinusitis - ICD9: 461.1, ICD10: J01.10 (primary diagnosis) - Given patient's compromised health status and recent fistula surgery will begin antibiotics - Will begin treatment with Augmentin 875 mg PO BID for 7 days - The patient should also be given nasal saline gtts and suction prn for the first 5-7 days of treatment. - Supportive care with plenty of fluids, rest, and analgesia prn. - Follow up in 3-5 days if symptoms persist or worsen. - AMOXICILLIN 875 MG-POTASSIUM CLAVULANATE 125 MG TABLET 2. Elevated blood pressure reading in office with diagnosis of hypertension - ICD9: 401.9, ICD10: I10 - suboptimal control, patient took BP medications just before visit - Continue current medication(s) - Encouraged dietary sodium restriction/DASH diet - Recommend home blood pressure monitoring, to bring results in on next visit - Recheck in 2 weeks, sooner should new symptoms or problems arise. - Goal of BP <140/90 - Recommended no refined sugar, low refined starch, healthy oil intake (olive oil), healthy protein (fish) along the lines of the Mediterranean diet. Prescription instructions reviewed with patient as applicable. Potential red flag symptoms discussed with the patient. Reviewed appropriate action plan to take if red flag symptoms occur. Patient agreeable to treatment plan. MARIANGEL Valentine APRN.CNP 08/13/2018 3:46 PM Signed Please make sure to keep your follow up appointment so that we may recheck your blood pressure as it was elevated at your appointment today. 1.) Get more rest than you usually do - this will speed your recovery. If you push hard with your usual busy schedule, you will be sicker longer. 2.) Drink a lot of water - enough to make you urinate every 2-3 hours (your urine should be a light yellow color). This helps thin the phlegm and sooth the airways. Gatorade (G2) is less in sugar and replaces your electrolytes if not eating well. 3.) Run a cool mist humidifier in your bedroom on high with the door closed. This is a natural way to decongest, and it helps lessen scratchy throats, nasal stuffiness and coughs. A good brand is [employer], which can be found at [employer] or [employer]. This is especially important if you do not have a humidifier on your furnace. 4.) For those without blood pressure concerns, take Sudafed as a decongestant (decreases stuffiness-lets drain), but realize that you will need to take it every 4-6 hours for several days. The lower dose is generally better tolerated (30mg)... Some people can make feel fast heart rate/jittery. You also may try anti-allergy pill like Claritin(loratidine) 10mg or maday, benadryl (makes sleepy) over the counter as directed to help with drippy nose. Mucinex 600-1200mg twice daily(plain) may help thin secretions so they are easier to cough up. Those with high blood pressure and not with prostate problems can try [id number] Coricidin HBP for congestion. 5.) For nasal/sinus congestion saline nasal spray and/or Netti Pot may be beneficial 5.) Take ibuprofen or acetominophen every 4-6 hours for pain/aches as needed if not contraindicated for you. Antibiotic as directed per prescription If you should breakout in a rash, stop the medicine and call the office. Any antibiotic has the potential to cause diarrhea due to alteration in the normal bacterial mirna of the gut. This can be reduced by eating yogurt with active cultures or taking probiotics daily while on the medication. If diarrhea becomes severe (watery, large volumes or more than 3-4/day) call the office. Women may experience yeast vaginitis due to alteration in the vaginal mirna. Symptoms include vaginal itching, irritation, and often a clumpy white discharge. If this occurs, there are several effective over the counter remedies available, including one-dose treatments. If these are unsuccessful, call the office. Antibiotics may interfer with control. If you are on oral contraceptives, use another form of protection (condoms, foams, jellies, diaphragm) throught the end of whatever pill pack you are on in 10 days. If you are not improving in 3-5 days or are worsening follow up with the office at [phone] Referring Provider: SELF [200] Allergies As of Date: 08/13/2018 (No Known Allergies) Date Reviewed: 08/13/2018 Reviewed by: Monik Chinchilla Ma - Fully Assessed Reason for Visit: Cough [28] Cmt: Dry cough, fever, wheezing x 2 days Primary Visit Diagnosis:Acute non-recurrent frontal sinusitis [J01.10] Other Visit Diagnosis:Elevated blood pressure reading in office with diagnosis of hypertension [I10] Order(s):amoxicillin-clavulanic acid (AUGMENTIN) 875-125 mg per tabletTake 1 tablet by mouth twice daily for 7 days.Disp: 14 tabletRfl: 0 Prescriptions as of 08/13/2018 Sig: AMOXICILLIN 875 MG-POTASSIUM * Take 1 tablet by mouth twice * AZITHROMYCIN 250 MG TABLET Take 1 tablet by mouth once d* HYDRALAZINE 25 MG TABLET Take 1 tablet by mouth three * CALCITRIOL 0.5 MCG CAPSULE Take 1 capsule by mouth once * PERFLUTREN LIPID MICROSPHERES* Inject 1.3 mL intravenously a* BENZONATATE 100 MG CAPSULE Take 2 capsules by mouth thre* ONDANSETRON 4 MG DISINTEGRATI* Take 1 tablet by mouth every * TAMSULOSIN 0.4 MG CAPSULE TAKE 1 CAPSULE BY MOUTH ONCE * BUPROPION XL 300 MG 24 HR TAB TAKE 1 TABLET BY MOUTH ONCE D* INSULIN ASPART U-100 100 UNI* Inject insulin three times da* INSULIN GLARGINE (U-100) 100 * Inject 35 Units subcutaneousl* LISINOPRIL 20 MG TABLET Take 1 tablet by mouth once d* AMLODIPINE 5 MG TABLET Take 1 tablet by mouth once d* PEN NEEDLE, DIABETIC 32 GAUGE* Use one needle for each dose,* CPAP Initiate Auto PAP @ 5- 20 cm o* GABAPENTIN 300 MG CAPSULE Take 1 capsule by mouth three* ATORVASTATIN 20 MG TABLET Take 1 tablet by mouth at bed* ATENOLOL 100 MG TABLET Take 1 tablet by mouth once d* LANCETS LANCETS FOR GLUCOSE METER. TE* BLOOD SUGAR DIAGNOSTIC STRIPS TEST BLOOD SUGAR 3 TIMES PER * BLOOD-GLUCOSE METER KIT Glucose Meter of Choice - Kit* FUROSEMIDE 20 MG TABLET Take 1 tablet by mouth twice * COMPOUNDED PRESCRIPTION KNEE HIGH COMPRESSION STOCKIN* RANITIDINE 300 MG TABLET Take 1 tablet by mouth daily * ASPIRIN 81 MG CHEWABLE TABLET Take 81 mg by mouth once adela* ACETAMINOPHEN ORAL Take by mouth. 1000 mg bid f* Problem List As Of Date 08/13/2018 Noted Resolved Uncontrolled type 2 diabetes mellitus with comp*INVALID FOR* More... Hypertension goal BP (blood pressure) < 140/90 *INVALID FOR* More... Other hyperlipidemia [E78.49] INVALID FOR* More... DEPRESSIVE DISORDER NEC [F32.9] INVALID FOR* More... ED (erectile dysfunction) [N52.9] INVALID FOR* Lower urinary tract symptoms (LUTS) [R39.9] INVALID FOR* History of kidney stones [Z87.442] INVALID FOR* Microscopic hematuria [R31.29] INVALID FOR* Diabetic polyneuropathy associated with type 2 *INVALID FOR* More... Acute pain of right shoulder [M25.511] INVALID FOR* More... Nausea [R11.0] INVALID FOR* More... Vomiting [R11.10] INVALID FOR* More... Moderate episode of recurrent major depressive *INVALID FOR* Stage 3 chronic kidney disease [N18.3] INVALID FOR* Right leg weakness [R29.898] INVALID FOR* Gait instability [R26.81] INVALID FOR* Other instructions from your clinician: Please make sure to keep your follow up appointment so that we may recheck your blood pressure as it was elevated at your appointment today. 1.) Get more rest than you usually do - this will speed your recovery. If you push hard with your usual busy schedule, you will be sicker longer. 2.) Drink a lot of water - enough to make you urinate every 2-3 hours (your urine should be a light yellow color). This helps thin the phlegm and sooth the airways. Gatorade (G2) is less in sugar and replaces your electrolytes if not eating well. 3.) Run a cool mist humidifier in your bedroom on high with the door closed. This is a natural way to decongest, and it helps lessen scratchy throats, nasal stuffiness and coughs. A good brand is [employer], which can be found at [employer] or [employer]. This is especially important if you do not have a humidifier on your furnace. 4.) For those without blood pressure concerns, take Sudafed as a decongestant (decreases stuffiness-lets drain), but realize that you will need to take it every 4-6 hours for several days. The lower dose is generally better tolerated (30mg)... Some people can make feel fast heart rate/jittery. You also may try anti-allergy pill like Claritin(loratidine) 10mg or maday, benadryl (makes sleepy) over the counter as directed to help with drippy nose. Mucinex 600-1200mg twice daily(plain) may help thin secretions so they are easier to cough up. Those with high blood pressure and not with prostate problems can try [id number] Coricidin HBP for congestion. 5.) For nasal/sinus congestion saline nasal spray and/or Netti Pot may be beneficial 5.) Take ibuprofen or acetominophen every 4-6 hours for pain/aches as needed if not contraindicated for you. Antibiotic as directed per prescription If you should breakout in a rash, stop the medicine and call the office. Any antibiotic has the potential to cause diarrhea due to alteration in the normal bacterial mirna of the gut. This can be reduced by eating yogurt with active cultures or taking probiotics daily while on the medication. If diarrhea becomes severe (watery, large volumes or more than 3-4/day) call the office. Women may experience yeast vaginitis due to alteration in the vaginal mirna. Symptoms include vaginal itching, irritation, and often a clumpy white discharge. If this occurs, there are several effective over the counter remedies available, including one-dose treatments. If these are unsuccessful, call the office. Antibiotics may interfer with control. If you are on oral contraceptives, use another form of protection (condoms, foams, jellies, diaphragm) throught the end of whatever pill pack you are on in 10 days. If you are not improving in 3-5 days or are worsening follow up with the office at [phone] Prescriptions ordered this encounter Disp Refills Start End AMOXICILLIN 875 MG-POTASSIUM CLAVULA* 14 t* 0 08/13/2018 08/20/2018 Route: ORAL Sig: Take 1 tablet by mouth twice daily for 7 days. Encounter Status:Closed by IRMA VILLA CNP on 08/13/18 PROGRESS Observed: 08/11/2018 Status: COMPLETED Source: [place] 9:35 AM [facility] RE[facility] HNO ID: [id number] Author: Chelsea Andrade Service: (none) Author Type: Registered Nurse Type: Progress Notes Filed: 08/11/2018 10:09 AM Note Text: PRIMARY CARE COORDINATION FOLLOW-UP NOTE Provider Action/FYI: Pt had fistula placed on 08/08/18 by Imtiaz Phan MD and Bss running in 100's per pt. Patient identified by name and date of . YES Spoke to patient Summary: Fistula placed R arm by Sylvester on 08/08. Checking BSs 3 times daily. BSs in 100s now, kidneys failing. Concerns: Pt in final stages kidney failure. Has been chking BSs much more often, feeling well. Arm is sore of course but otherwise well. 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 Signature Chelsea Andrade RN Ambulatory Pocketed Spring Machine Operator Internal Medicine [facility] August 11, 2018 [place] Observed: 08/11/2018 Status: COMPLETED Source: [place] 12:00 AM [facility] Patient Outreach ([facility]) WILLIAMS BURGOS ([id number]) 1970 M Date Time Provider Department 08/11/18 CHELSEA SMITH During your visit today, we recorded the following information about you: Chelsea Cottrell RN 08/11/2018 10:09 AM Signed PRIMARY CARE COORDINATION FOLLOW-UP NOTE Provider Action/FYI: Pt had fistula placed on 08/08/18 by Imtiaz Phan MD and Bss running in 100's per pt. Patient identified by name and date of . YES Spoke to patient Summary: Fistula placed R arm by Sylvester on 08/08. Checking BSs 3 times daily. BSs in 100s now, kidneys failing. Concerns: Pt in final stages kidney failure. Has been chking BSs much more often, feeling well. Arm is sore of course but otherwise well. 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 Signature Chelsea Andrade RN Ambulatory Pocketed Spring Machine Operator Internal Medicine [facility] August 11, 2018 Allergies As of Date: 08/11/2018 (No Known Allergies) Date Reviewed: 07/16/2018 Reviewed by: Catalina Lala LPN - Fully Assessed Reason for Visit: Pocketed Spring Machine Operator Chronic Care [5826] Prescriptions as of 08/11/2018 Sig: AZITHROMYCIN 250 MG TABLET Take 1 tablet by mouth once d* HYDRALAZINE 25 MG TABLET Take 1 tablet by mouth three * CALCITRIOL 0.5 MCG CAPSULE Take 1 capsule by mouth once * PERFLUTREN LIPID MICROSPHERES* Inject 1.3 mL intravenously a* BENZONATATE 100 MG CAPSULE Take 2 capsules by mouth thre* ONDANSETRON 4 MG DISINTEGRATI* Take 1 tablet by mouth every * TAMSULOSIN 0.4 MG CAPSULE TAKE 1 CAPSULE BY MOUTH ONCE * BUPROPION XL 300 MG 24 HR TAB TAKE 1 TABLET BY MOUTH ONCE D* INSULIN ASPART U-100 100 UNI* Inject insulin three times da* INSULIN GLARGINE (U-100) 100 * Inject 35 Units subcutaneousl* LISINOPRIL 20 MG TABLET Take 1 tablet by mouth once d* AMLODIPINE 5 MG TABLET Take 1 tablet by mouth once d* PEN NEEDLE, DIABETIC 32 GAUGE* Use one needle for each dose,* CPAP Initiate Auto PAP @ 5- 20 cm o* GABAPENTIN 300 MG CAPSULE Take 1 capsule by mouth three* ATORVASTATIN 20 MG TABLET Take 1 tablet by mouth at bed* ATENOLOL 100 MG TABLET Take 1 tablet by mouth once d* LANCETS LANCETS FOR GLUCOSE METER. TE* BLOOD SUGAR DIAGNOSTIC STRIPS TEST BLOOD SUGAR 3 TIMES PER * BLOOD-GLUCOSE METER KIT Glucose Meter of Choice - Kit* FUROSEMIDE 20 MG TABLET Take 1 tablet by mouth twice * COMPOUNDED PRESCRIPTION KNEE HIGH COMPRESSION STOCKIN* RANITIDINE 300 MG TABLET Take 1 tablet by mouth daily * ASPIRIN 81 MG CHEWABLE TABLET Take 81 mg by mouth once adela* ACETAMINOPHEN ORAL Take by mouth. 1000 mg bid f* Problem List As Of Date 08/11/2018 Noted Resolved Uncontrolled type 2 diabetes mellitus with comp*INVALID FOR* More... Hypertension goal BP (blood pressure) < 140/90 *INVALID FOR* More... Other hyperlipidemia [E78.49] INVALID FOR* More... DEPRESSIVE DISORDER NEC [F32.9] INVALID FOR* More... ED (erectile dysfunction) [N52.9] INVALID FOR* Lower urinary tract symptoms (LUTS) [R39.9] INVALID FOR* History of kidney stones [Z87.442] INVALID FOR* Microscopic hematuria [R31.29] INVALID FOR* Diabetic polyneuropathy associated with type 2 *INVALID FOR* More... Acute pain of right shoulder [M25.511] INVALID FOR* More... Nausea [R11.0] INVALID FOR* More... Vomiting [R11.10] INVALID FOR* More... Moderate episode of recurrent major depressive *INVALID FOR* Stage 3 chronic kidney disease [N18.3] INVALID FOR* Right leg weakness [R29.898] INVALID FOR* Gait instability [R26.81] INVALID FOR* Follow-up and Disposition History Recorded Encounter Status:Closed by CHELSEA ANDRADE on 08/11/18 OPERATIVE REPORT Observed: 08/08/2018 Status: F Source: [place] 3:06 PM [facility] Medical Records Department [address] [place] [address] Operative Report 08/08/18 1340 MR#: [id number] Acct: [id number] Name: WILLIAMS BURGOS Rep #: [id number] : 1970 47 From: Satish Phan MD PCP: Anderson Gaston MD Status: REG SDC Y Location: [place] [address] Problem List (1) Chronic renal failure, stage 4 (severe) Status: Chronic Comment: Is currently following with nephrology. Also following with urology. Is trying to follow his low protein diet and feels he is doing well with it. Report of Operation Date of Procedure: 08/08/18 Pre-Operative Diagnosis: Stage IV chronic renal insufficiency Post-Operative Diagnosis: Same Surgery/Procedure Performed:: Right forearm radiocephalic arteriovenous fistula creation Description of Surgical Findings:: Timeout and informed consent was obtained. 47-year-old gentleman was taken to the operating room. Upper extremity was sterilely prepped and draped. Ultrasound had been used to identify the cephalic vein. 1% lidocaine mixed 50-50 with 0.5% Marcaine was used as local anesthetic. A total of 6 cc was used. An oblique incision was made in the right radial forearm. Sharp blunt dissection to identify the cephalic vein. Was dissected proximally distally. Then sharp and blunt dissection was used to identify the radial artery. The patient received 8000 units of heparin intravenously. The vein was ligated distally with a Hemoclip. The vein was slightly spatulated and was irrigated with heparinized saline. It was noted to be thick walled. Peripheral vascular clamps were placed on the radial artery. A 11 blade was used to make an arteriotomy and this was extended with Aponte scissors. This was a slightly oblique incision in the artery to allow for better placement of the vein. A end to side anastomosis created with a running 7-0 Prolene. Prior to completion of this good antegrade and retrograde flow. The anastomosis was completed. There was immediately good pulsatile flow within the fistula. The work up will portion of the vein was nicely distended with the more proximal portion of the vein spasm with small. Hemostasis was intact. I felt that this will simply require maturation time. The wound was closed with a deep layer of interrupted 3-0 Vicryl and then a superficial running septic or 4-0 Monocryl. Steri- Strips and Telfa and OpSite dressings applied. Sponge and instrument and needle counts were reported the surgeon be correct. Blood loss was minimal. Specimens none. Drains none. Blood loss minimal. Hand was viable at the completion no apparent complication The patient was taken to the recovery area in satisfactory condition without apparent complication Satish Phan M.D., F.A.C.S. Type of Anesthesia:: Local MAC Anesthesiologist: Rod Graham 08/08/18 1506 <Electronically signed by Satish Phan MD> Date Satish Phan MD CC: Anedrson Gaston MD; Satish Phan MD Signed DISCHARGE INSTRUCTION Observed: 08/08/2018 Status: F Source: [place] 1:39 PM [facility] Medical Records Department [address] [place] [address] Instructions for Home/Discharge Instructions 08/08/18 1155 MR#: [id number] Acct: [id number] Name: WILLIAMS BURGOS Mery Rep #: [id number] : 1970 47 From: Satish Phan MD PCP: Anderson Gaston MD Status: REG SDC Discharge Diet: Renal Diet Discharge Activity: May Not Drive - for 2-3 days or while taking narcotic pain medications., May Shower, May Take a Tub Bath - in 5 days. Lifting Restrictions: 5 pounds Keep extremity elevated above heart level: - - Keep arm elevated above the heart level for 3 days. Additional Activity Instructions:: Exercise hand vigorously with a stress ball. Call your doctor if your incision/area has: Continuous Slow Oozing, Sudden Increased Bleeding - apply pressure and call your doctor., Increased Pain/ Swelling, Increased Redness, Foul Smelling Discharge Call your doctor if you observe: Fever of 101 or Higher Suture Line Care: Avoid Pulling/Pushing, Avoid Pinching/Bending Cleanse incision/area with: Keep Dressing Clean AND Dry Additional Dressing/Incision Instructions:: Of each arm for comfort. You may leave the dressing on for a couple days. You may then remove it. Leave the Steri-Strips in place for 1 additional week. Allergies/Adverse Reactions: Allergies No Known Allergies Allergy (Verified 08/04/18 09:24) Medications to take at Discharge Gabapentin [Neurontin] 300 mg PO TIDCM 07/15/13 Bupropion HCl [Wellbutrin Xl] 300 mg PO DAILY 05/06/17 Atorvastatin Calcium [Lipitor] 20 mg PO QHS 11/19/17 Atenolol [Tenormin (beta elizabeth)] 100 mg PO DAILY 11/28/17 Psyllium [Metamucil] 1 packet PO DAILY PRN PRN packet 12/05/17 aspirin 325 mg tablet 325 mg PO QDAY 12/26/17 acetaminophen 500 mg tablet 1,000 mg PO QDAY PRN tab 01/20/18 tamsulosin 0.4 mg capsule 0.4 mg PO QDAY cap 01/20/18 Amlodipine [Norvasc] 5 mg PO DAILY 03/02/18 Insulin Aspart [Novolog Flexpen] 15 unit SUBCUT TID 03/02/18 cholecalciferol (vitamin D3) 1,000 unit tablet 1,000 unit PO DAILY 07/11/18 furosemide 40 mg tablet 40 mg PO BID tab 07/11/18 hydralazine 25 mg tablet 25 mg PO TID 07/11/18 insulin glargine (U-100) 100 unit/mL (3 mL) subcutaneous pen 10 unit SUBCUT QHS ml 07/11/18 Calcitriol [Rocaltrol] 0.5 mcg PO DAILY 08/04/18 Primary Care Physician: Anderson Gaston MD [Primary Care Provider] - Test Results: Test results from this visit will be discussed in further detail at your follow-up appointment, if applicable. Please Follow Up With: Satish Phan MD - [phone] When: Call to make an appointment for follow up in 10 days 08/08/18 1339 <Electronically signed by Satish Phan MD> Date Satish Phan MD CC: Anderson Gaston MD BEDSIDE GLUCOSE Collected: 08/08/2018 Status: F Source: [place] 10:40 AM [facility] REPOSITORY TYPE CODE TESTS RESULT OUT OF REFERENCE UNITS RANGE LAB L501.080 70-110 mg/dL High BEDSIDE GLU 150 Result Comment: MANAGEMENT OF PATIENT CARE PER NURSING PROTOCOL Performed By: #### L501.080 #### [facility] Point of Care [address] [place], [place] [address] CBC-COMPLETE BLOOD CNT Collected: 08/05/2018 Status: F Source: [place] NO DIFF 8:29 AM [facility] REPOSITORY TYPE CODE TESTS RESULT OUT OF RANGE REFERENCE UNITS LAB L100.1000 4.4-11.0 K/mm3 Normal WBC 4.8 LAB L100.1200 4.6-6.2 M/mm3 Low RBC 3.60 LAB L100.1300 13.0-16.5 g/dl Low HGB 10.5 LAB L100.1400 40-54 % Low HCT 30.6 LAB L100.1500 80-94 fL Normal MCV 85.0 LAB L100.1600 27.0-32.0 pg Normal MCH 29.2 LAB L100.1700 32-36 g/gl Normal MCHC 34.3 LAB L100.1810 11.6-14.6 % Normal RDW CV 13.2 LAB L100.1820 35.1-43.9 fl Normal RDW SD 40.8 LAB L100.1900 150-450 K/mm3 Normal PLT 191 LAB L100.2000 6.2-12.0 fl Normal MPV 9.4 Performed By: #### L100.0500 #### [facility] [address] [place], [place], [address] BASIC METABOLIC Collected: 08/05/2018 Status: F Source: [place] PROFILE (BMP) 8:29 AM [facility] REPOSITORY TYPE CODE TESTS RESULT OUT OF RANGE REFERENCE UNITS LAB L501.0100 74-106 mg/dL High GLU 218 Result Comment: Glucose result greater than or equal to 200 mg/dL suggests DIABETES MELLITUS per A.D.A. criteria. Please note revised GLUCOSE reference range effective 2017. LAB L501.1000 7-18 mg/dL High BUN 66 LAB L501.1100 0.70-1.30 mg/dL High CREAT,SERUM 5.29 Result Comment: The validity of the calculated GFR AND GFRAA in patients over 70 years has not been determined. Clinical correlation is essential. LAB L501.1110 >60 mL/min Low EST GFR 12 Result Comment: Non- GFR Calc LAB L501.1115 >60 mL/min Low EST GFR - AA 15 Result Comment: GFR Calc LAB L501.1300 10-20 RATIO Normal BUN/CRE 12.5 LAB L501.2200 8.5-10.1 mg/dL Low CA 8.1 LAB L501.5300 136-145 mmol/L NA Normal 144 LAB L501.5600 3.5-5.1 mmol/L K Normal 4.4 LAB L501.5900 98-107 mmol/L High CL 109 LAB L501.6100 21.0-32.0 mmol/L Normal CO2 26.0 LAB L501.6200 5-15 Normal GAP 9 Performed By: #### L500.2500 #### [facility] [address] [place], [address] PROGRESS Observed: 07/25/2018 Status: COMPLETED Source: [place] 11:42 AM [facility] REPOSITORY HNO ID: [id number] Author: Chelsea Andrade Service: (none) Author Type: Registered Nurse Type: Progress Notes Filed: 07/26/2018 4:27 PM Note Text: PRIMARY CARE COORDINATION FOLLOW-UP NOTE Provider Action/FYI: Pt doing well. Residual cough, but no fever. Edema decreasing taking increased Lasix. Patient identified by name and date of . YES Spoke to patient Summary: Residual cough from prev pneumonia but declines Tessalon perle RF. Breathing is much better. He has been taking Lasix 40mg TID per pt. Voiding increased and edema better. Weight today was 229. BSs under much better control. Over past 24 hrs have been 148-200, checking multiple times during day. Concerns: He is scheduled for 1st stage of fistula placement on 08/08/[address] Satish Phan. It will be several months before he can have dialysis and Dr Phan has explained trying to avoid temp cath. Pt is working hard 5to control diabets, unfortunately, cannot control weight and diet well. 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 Residual cough, but no fever. Edema decreasing taking increased Lasix. Patient identified by name and date of . YES Spoke to patient Summary: Residual cough from prev pneumonia but declines Tessalon perle RF. Breathing is much better. He has been taking Lasix 40mg TID per pt. Voiding increased and edema better. Weight today was 229. BSs under much better control. Over past 24 hrs have been 148-200, checking multiple times during day. Concerns: He is scheduled for 1st stage of fistula placement on 08/08/[address] Satish Phan. It will be several months before he can have dialysis and Dr Phan has explained trying to avoid temp cath. Pt is working hard 5to control diabets, unfortunately, cannot control weight and diet well. 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 Chronic Care [2930] Prescriptions as of 07/25/2018 Sig: AZITHROMYCIN 250 MG TABLET Take 1 tablet by mouth once d* HYDRALAZINE 25 MG TABLET Take 1 tablet by mouth three * CALCITRIOL 0.5 MCG CAPSULE Take 1 capsule by mouth once * PERFLUTREN LIPID MICROSPHERES* Inject 1.3 mL intravenously a* BENZONATATE 100 MG CAPSULE Take 2 capsules by mouth thre* ONDANSETRON 4 MG DISINTEGRATI* Take 1 tablet by mouth every * TAMSULOSIN 0.4 MG CAPSULE TAKE 1 CAPSULE BY MOUTH ONCE * BUPROPION XL 300 MG 24 HR TAB TAKE 1 TABLET BY MOUTH ONCE D* INSULIN ASPART U-100 100 UNI* Inject insulin three times da* INSULIN GLARGINE (U-100) 100 * Inject 35 Units subcutaneousl* LISINOPRIL 20 MG TABLET Take 1 tablet by mouth once d* AMLODIPINE 5 MG TABLET Take 1 tablet by mouth once d* PEN NEEDLE, DIABETIC 32 GAUGE* Use one needle for each dose,* CPAP Initiate Auto PAP @ 5- 20 cm o* GABAPENTIN 300 MG CAPSULE Take 1 capsule by mouth three* ATORVASTATIN 20 MG TABLET Take 1 tablet by mouth at bed* ATENOLOL 100 MG TABLET Take 1 tablet by mouth once d* LANCETS LANCETS FOR GLUCOSE METER. TE* BLOOD SUGAR DIAGNOSTIC STRIPS TEST BLOOD SUGAR 3 TIMES PER * BLOOD-GLUCOSE METER KIT Glucose Meter of Choice - Kit* FUROSEMIDE 20 MG TABLET Take 1 tablet by mouth twice * COMPOUNDED PRESCRIPTION KNEE HIGH COMPRESSION STOCKIN* RANITIDINE 300 MG TABLET Take 1 tablet by mouth daily * ASPIRIN 81 MG CHEWABLE TABLET Take 81 mg by mouth once adela* ACETAMINOPHEN ORAL Take by mouth. 1000 mg bid f* Medication notes this encounter FUROSEMIDE 20 MG TABLET >> Chelsea Cottrell RN 07/26/2018 4:27 PM >> CHELSEA ANDRADE Jul 26, 2018 4:27 PM Taking 80 mg TID per pt. Problem List As Of Date 07/25/2018 Noted Resolved Uncontrolled type 2 diabetes mellitus with comp*INVALID FOR* More... Hypertension goal BP (blood pressure) < 140/90 *INVALID FOR* More... Other hyperlipidemia [E78.49] INVALID FOR* More... DEPRESSIVE DISORDER NEC [F32.9] INVALID FOR* More... ED (erectile dysfunction) [N52.9] INVALID FOR* Lower urinary tract symptoms (LUTS) [R39.9] INVALID FOR* History of kidney stones [Z87.442] INVALID FOR* Microscopic hematuria [R31.29] INVALID FOR* Diabetic polyneuropathy associated with type 2 *INVALID FOR* More... Acute pain of right shoulder [M25.511] INVALID FOR* More... Nausea [R11.0] INVALID FOR* More... Vomiting [R11.10] INVALID FOR* More... Moderate episode of recurrent major depressive *INVALID FOR* Stage 3 chronic kidney disease [N18.3] INVALID FOR* Right leg weakness [R29.898] INVALID FOR* Gait instability [R26.81] INVALID FOR* Encounter Status:Closed by CHELSEA ANDRADE on 07/26/18 SURGERY VISIT REPORT Observed: 07/18/2018 Status: F Source: [facility] 3:04 PM [facility] REPOSITORY [facility] [address] [place] [address] OFFICE VISIT Date of Service: 07/18/18 MR#: [id number] Acct: [id number] Name: WILLIAMS BURGOS Rep #: [id number] : 1970 Provider: Satish Phan MD Age/Sex: 47/M Location: [facility] Status: Signed Intake Vital Signs07/18/18 Height 5 ft 8 in 07/18/18 Weight: 227 lb Intake Visit Reasons: Fistula Placement Consult Vein Mapping [facility] 07/16 Office Inspector Required: No Allergies No Known Allergies Allergy (Verified 07/18/18 14:11) Medications Gabapentin [Neurontin] 300 mg PO TIDCM 07/15/13 [History Confirmed 07/18/18] Bupropion HCl [Wellbutrin Xl] 300 mg PO DAILY 05/06/17 [History Confirmed 07/18/18] Atorvastatin Calcium [Lipitor] 20 mg PO QHS 11/19/17 [History Confirmed 07/18/18] Atenolol [Tenormin (beta elizabeth)] 100 mg PO DAILY 11/28/17 [History Confirmed 07/18/18] Psyllium [Metamucil] 1 packet PO DAILY PRN PRN packet 12/05/17 [Rx Confirmed 07/18/18] aspirin 325 mg tablet 325 mg PO QDAY 12/26/17 [History Confirmed 07/18/18] acetaminophen 500 mg tablet 1,000 mg PO QDAY PRN tab 01/20/18 [History Confirmed 07/18/18] tamsulosin 0.4 mg capsule 0.4 mg PO QDAY cap 01/20/18 [History Confirmed 07/18/18] Amlodipine [Norvasc] 5 mg PO DAILY 03/02/18 [History Confirmed 07/18/18] Insulin Aspart [Novolog Flexpen] 15 unit SUBCUT TID 03/02/18 [History Confirmed 07/18/18] cholecalciferol (vitamin D3) 1,000 unit tablet 1,000 unit PO DAILY 07/11/18 [History Confirmed 07/18/18] furosemide 40 mg tablet 40 mg PO BID tab 07/11/18 [History Confirmed 07/18/18] hydralazine 25 mg tablet 25 mg PO TID 07/11/18 [History Confirmed 07/18/18] insulin glargine (U-100) 100 unit/mL (3 mL) subcutaneous pen 10 unit SUBCUT QHS ml 07/11/18 [History Confirmed 07/18/18] [facility] Medical History Anasarca associated with disorder of kidney (Acute) Anemia of chronic renal failure, stage 4 (severe) (Chronic) Autonomic neuropathy (Suspected) Chronic renal failure, stage 4 (severe) (Chronic) Retention, urine (Acute) Acute on chronic diastolic CHF (congestive heart failure) (Acute) Acute hypoxemic respiratory failure (Ruled-out) Hypoglycemia (Acute) Acute respiratory failure with hypoxia (Ruled-out) Obesity (BMI 30-39.9) (Chronic) Noncompliance (Chronic) Diabetic neuropathy (Chronic) Diabetic nephropathy (Chronic) Diabetic retinopathy (Chronic) HTN (hypertension) (Chronic) HLD (hyperlipidemia) (Chronic) Blind left eye (Chronic) Diabetes mellitus type II, uncontrolled (Chronic) Anxiety and depression (Chronic) GERD (gastroesophageal reflux disease) (Chronic) Chewing tobacco nicotine dependence (Chronic) ILDA (acute kidney injury) (Ruled-out) Right leg pain (Resolved) Chronic ulcer of 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 (Resolved) Cellulitis and abscess of right leg (Resolved) History of acute myocardial infarction (Chronic) Kidney failure (Acute) Kidney stones (Acute) Pneumonia (Acute) Vision problems (Acute) Hypertensive emergency (Resolved) Hypokalemia (Resolved) Surgical History History of appendectomy (Acute) History of eye surgery (Chronic) History of cholecystectomy (Resolved) Family History Mother Heart disease Hypertension Father Cancer Brother Cancer Diabetes Sister Diabetes Social History Smoking Status: Never smoker second hand exposure: No alcohol intake: never substance use type: does not use HPI HPI HPI: WILLIAMS BURGOS, is a 47 M who presents to the office today for surgical consultation regarding arteriovenous fistula creation for chronic hemodialysis. 47-year-old gentleman. For age 47 he has multiple significant medical comorbidities. It seems according to him that most of these are related to uncontrolled diabetes mellitus. Apparently he had extensive hospitalization throughout November 2017 with problems consistent with congestive heart failure. He is not currently on hemodialysis. At the [facility] on July 17, 2018 had bilateral upper extremity vein mapping. This demonstrates that the veins are patent and compressible. Bilateral forearm cephalic veins are somewhat marginal. Bilateral upper arm cephalic and basilic veins are adequate. The patient is left arm dominant. He denies any previous central device. Medical problems not the least of which include diastolic congestive heart failure and left ventricular hypertrophy, diabetes mellitus type 2, diabetic neuropathy, diabetic nephropathy, diabetic retinopathy, obesity, noncompliance with diet medications as well as hypertension, hyperlipidemia ,anxiety ,depression, GERD, tobacco dependence, stage IV renal failure, sleep apnea. The patient is referred for surgical consultation for arteriovenous fistula creation by Dr. Loida Montiel in early written copy of my surgical consult and recommendations will be returned to her [facility] Cardiovascular Services [address] [place] [address] Saphenous Vein Mapping, Bilat 07/17/18 0855 MR#: [id number] Name: WILLIAMS BURGOS [facility] #:[id number] : 1970 47From: Satish Phan MD Attending Dr: Brian Montiel DO: REG CLI Ordering Dr: Loida Montiel DODate: 07/17/18 Location:CVSSex: Admitted: Reason For Study: CKD - Assess for possible dialysis access placement Right Arm Left Arm Right Cephalic Vein at the wrist Left Cephalic Vein at the wrist measures .18 measures .16 x .17 cm. x .18 cm. Right Cephalic Vein in the forearm Left Cephalic Vein in the forearm measures .24 x .25 cm. measures .21 x .21 cm. Right Cephalic Vein below antecub Left Cephalic Vein below antecub measures .42 x .44 cm. measures .31 x .30 cm. Right Cephalic Vein above antecub Left Cephalic Vein above antecub measures .37 x .40 cm. measures .35 x .39 cm. Right Cephalic Vein mid bicep measures .33 Left Cephalic Vein at mid bicep measures .31 x .33 cm. x .33 cm. Right Cephalic Vein at the shoulder Left Cephalic Vein at the shoulder measures .36 x .36 cm. measures .35 x .40 cm. Right Basilic Vein at the origin Basilic vein at origin measures .38 x .39 measures .46 x .49 cm. cm. Right Basilic Vein mid bicep measures .32 Basilic vein at bicep measures .32 x .32 cm. x .32 cm. Basilic vein above antecub measures .27 Right Basilic Vein above antecub x .27 cm. measures .36 x .36 cm. LT Brachial artery - .45 x .47 cm with a RT Brachial artery - .44 x .47 cm with a velocity of 91.5 cm/s velocity of 97.4 cm/s LT Radial artery - .23 x .27 cm with a RT Radial artery - .25 x .25 cm with a velocity of 97.3 cm/s. velocity of85.6 cm/s. Interpretation Summary Patent and compressible bilateral upper extremity cephalic and basilic veins with dimensions as noted. Adequate arterial flow bilateral radial and brachial arteries. Ordering Physician: Loida Montiel Referring Physician: Anderson Gaston Performed By: Jessica Murphy RVT ? ROS General General: Yes weight change; no appetite, fatigue, colon cancer, breast cancer or weakness HEENT HEENT: Yes eye injury and eye surgery; no difficulty swallowing, swollen glands or hoarseness Endo Endocrine: Yes diabetes mellitus; no thyroid disease, thyroid cancer, Hair loss, heat intolerance or cold intolerance Skin Skin: No rash or changing moles Breast Breast: No left breast lump, right breast lump, nipple discharge, breast pain, abnormal mammogram, abnormal US or breast enlargement Musc Musculoskeletal: No back problems, arthritis, rheumatoid arthritis, gout or joint pain Cardio Cardiovascular: Yes heart disease and high blood pressure; no murmur, pacemaker, atrial fibrillation, heart attack, heart stent, palpitations, shortness of breat with exertion or chest pain Psych Psychiatric: Yes depression; no anxiety or hearing voices Resp Respiratory: Yes shortness of breath, Yes sleep apnea, Yes cough, No COPD, No asthma, No emphysema, No wheezing Gastro Gastrointestinal: Yes nausea or vomiting, Yes diarrhea, No abdominal pain, No constipation, No blood in stool, No acid reflux, No hemorrhoids, No ulcers, No gallbladder problem, No black,tarry stools Isaiah Hematologic: No blood thinners, No blood disorders, No bleeding, No anemia, No blood clots Neuro Neurologic: No system reviewed and no additional complaints, except as docu, No as per HPI, No abnormal walking, No abnormal hearing, No abnormal movements, No abnormal speech, No behavioral changes, No burning sensations, No confusion, No seizure-like activity, No unsteadiness, No dizziness, No localized weakness, No frequent falls, No headache(s), No lack of coordination, No loss of vision, No memory loss, No numbness, No other visual disturbances, No radiating pain, No restless legs, No sensory deficit, No fainting, No tingling, No tremor(s), No weakness, No other Exam Const General: ill appearing Nutritional Appearance: overweight Orientation: alert, awake [facility] Mouth: oral mucosae normal Eyes General: appearance normal, both eyes and all related structures Chest Breast Palpation: No nipple discharge Resp Effort AND Inspection: normal respiratory effort Auscultation: clear to auscultation bilaterally Cardio Rate: regular rate Rhythm: regular rhythm Heart Sounds: no murmurs GI Palpation: soft, no hepatosplenomegaly Auscultation: normal bowel sounds Skin General: no rashes or lesions noted (Bilateral upper extremities) Neuro General: alert, awake Extrem Other: Bilateral radial pulses are 3+. Bilateral brachial pulses 3+. Right upper extremity ultrasound on my evaluation demonstrates a borderline slightly thickened wall cephalic vein extending from the wrist to the antecubital space. It is deeply placed. The right upper arm cephalic vein is at a at the antecubital space and slightly more sizable in the upper arm. Less suggestion of vein wall thickening. Both the forearm and upper arm are patent and compressible. Psych Affect: flat Assessment AND Plan Problems 1. Anemia of chronic renal failure, stage 4 (severe) N18.4; D63.1 Plan 47-year-old gentleman who has multiple significant medical comorbidities significantly beyond stated age. Although the right forearm cephalic vein is marginal and it is deeply placed I still believe because of his very young age and attempt at creating a right forearm radiocephalic arteriovenous fistula is pertinent. As noted above he is left arm dominant. I recommend to him stage I right forearm radiocephalic arteriovenous fistula creation. I described the technique, benefits, risks, alternatives. He has had an opportunity to ask and have questions answered. He is well aware that if the vein matures that we will need to then in the future proceed with stage II transposition. He is aware that we are trying to pursue every effort to avoid hemodialysis catheters. I very much appreciate the kind opportunity of assisting with his surgical care. We will schedule and proceed at his discretion. CC: Dr. Loida Montiel and Dr. Anderson Phan M.D., F.A.C.S. Coding Level of Care Code Detailed, Low Diagnoses Anemia of chronic renal failure, stage 4 (severe) N18.4; D63.1 07/18/18 1504 <Electronically signed by Satish Phan MD> Date Satish Phan MD Cosigner Signature: Date (if applicable) CC: Anderson Gaston MD; Loida Montiel DO VENOUS DUPLEX UPPER Observed: 07/17/2018 Status: F Source: [facility] EXTREMITY 10:54 AM [facility] REPOSITORY [facility] Cardiovascular Services [address] [place] [address] Saphenous Vein Mapping, Bilat 07/17/18 0855 MR#: [id number] Acct: [id number] Name: WILLIAMS BURGOS Rep #: [id number] : 1970 47 From: Satish Phan MD Attending Dr: Loida Montiel DO Status: REG CLI Ordering Dr: Loida Montiel DO Date: 07/17/18 Location: [facility] Sex: M C Admitted: Reason For Study: CKD - Assess for possible dialysis access placement Right Arm Left Arm Right Cephalic Vein at the wrist Left Cephalic Vein at the wrist measures .18 measures .16 x .17 cm. x .18 cm. Right Cephalic Vein in the forearm Left Cephalic Vein in the forearm measures .24 x .25 cm. measures .21 x .21 cm. Right Cephalic Vein below antecub Left Cephalic Vein below antecub measures .42 x .44 cm. measures .31 x .30 cm. Right Cephalic Vein above antecub Left Cephalic Vein above antecub measures .37 x .40 cm. measures .35 x .39 cm. Right Cephalic Vein mid bicep measures .33 Left Cephalic Vein at mid bicep measures .31 x .33 cm. x .33 cm. Right Cephalic Vein at the shoulder Left Cephalic Vein at the shoulder measures .36 x .36 cm. measures .35 x .40 cm. Right Basilic Vein at the origin Basilic vein at origin measures .38 x .39 measures .46 x .49 cm. cm. Right Basilic Vein mid bicep measures .32 Basilic vein at bicep measures .32 x .32 cm. x .32 cm. Basilic vein above antecub measures .27 Right Basilic Vein above antecub x .27 cm. measures .36 x .36 cm. LT Brachial artery - .45 x .47 cm with a RT Brachial artery - .44 x .47 cm with a velocity of 91.5 cm/s velocity of 97.4 cm/s LT Radial artery - .23 x .27 cm with a RT Radial artery - .25 x .25 cm with a velocity of 97.3 cm/s. velocity of85.6 cm/s. Interpretation Summary Patent and compressible bilateral upper extremity cephalic and basilic veins with dimensions as noted. Adequate arterial flow bilateral radial and brachial arteries. Ordering Physician: Loida Montiel Referring Physician: Anderson Gaston Performed By: Jessica Murphy RVT ? 07/17/18 1053 Date Satish Phan MD CC: Anderson Gaston MD; Loida Montiel DO Date Dictated: 07/17/18854 Date Transcribed: 07/17/18 105 Hand Packager: Signed D DIMER Collected: 07/16/2018 Status: F Source: [place] 11:17 AM [facility] REPOSITORY TYPE CODE TESTS RESULT OUT OF REFERENCE UNITS RANGE LAB DDMER <500 ng/mL FEU D dimer 460 Result Comment: The D-dimer assay can be used to exclude pulmonary embolism (PE) and deep vein thrombosis (DVT) in conjunction with a low pre-test probability. For patients with a suspected DVT, a D Dimer level below 500 ng/mL FEU has a negative predictive value of >=99.0%, a sensitivity of >=97.0%, and a specificity of >=35.8%. For patients with a rosenberg spected PE, a D Dimer level below 500 ng/mL FEU has a negative predictive value of >=98.6%, a sensitivity of >=96.6%, and a specificity of >=38.9%. Performed By: #### DDMER, CBCDIF, AMYL, CMP, LIPA, HBA1C #### [facility] [address] [address] CBC AND DIFFERENTIAL Collected: 07/16/2018 Status: F Source: [place] 11:17 AM [facility] REPOSITORY TYPE CODE TESTS RESULT OUT OF REFERENCE UNITS RANGE LAB WBC 3.70-11.00 k/uL WBC 7.02 LAB RBC 4.20-6.00 m/uL Low RBC 3.42 LAB HGB 13.0-17.0 g/dL Low Hemoglobin 10.0 LAB HCT 39.0-51.0 % Low Hematocrit 29.5 LAB MCV 80.0-100.0 fL MCV 86.3 LAB MCH 26.0-34.0 pG MCH 29.2 LAB MCHC 30.5-36.0 g/dL MCHC 33.9 LAB RDWCV 11.5-15.0 % RDW-CV 13.2 LAB PLTCT 150-400 k/uL Platelet Count 235 LAB MPV 9.0-12.7 fL MPV 9.8 LAB ANEUT % Neut% 68.5 LAB AANEUT 1.45-7.50 k/uL Abs Neut 4.79 LAB ALYMP % Lymph% 23.9 LAB AALYMP 1.00-4.00 k/uL Abs Lymph 1.68 LAB AMONO % Madison% 6.1 LAB AAMONO <0.87 k/uL Abs [place] 0.43 LAB AEOS % Eosin% 0.9 LAB AAEOS <0.46 k/uL Abs Eosin 0.06 LAB ABASO % Baso% 0.6 LAB AABASO <0.11 k/uL Abs Baso 0.04 LAB AUNRBC 0 /100 WBC NRBCs 0.0 LAB ABNRBC <0.01 k/uL Absolute nRBC <0.01 LAB DTYP DTYPE Auto Diff Performed By: #### DDMER, CBCDIF, AMYL, CMP, LIPA, HBA1C #### [facility] [address] [address] AMYLASE Collected: 07/16/2018 Status: F Source: [place] 11:17 AM [facility] REPOSITORY TYPE CODE TESTS RESULT OUT OF REFERENCE UNITS RANGE LAB AMYL 30-104 U/L Low Amylase 21 Performed By: #### DDMER, CBCDIF, AMYL, CMP, LIPA, HBA1C #### [facility] [address] [id number] COMP METABOLIC PANEL Collected: 07/16/2018 Status: F Source: [place] 11:17 AM [facility] REPOSITORY TYPE CODE TESTS RESULT OUT OF REFERENCE UNITS RANGE LAB TP 6.3-8.0 g/dL Low Protein, Total 5.6 LAB ALB 3.9-4.9 g/dL Low Albumin 2.9 LAB CA 8.5-10.2 mg/dL Low Calcium, Total 8.4 LAB TBIL 0.2-1.3 mg/dL Bilirubin, Total 0.2 LAB ALKP 38-113 U/L Alkaline High Phosphatase 122 LAB AST 14-40 U/L AST 18 LAB GLU 74-99 mg/dL Glucose High 165 Result Comment: The [place] [employer] (ADA) provides guidance for cutoff values for fasting glucose and random glucose. The ADA defines fasting as no caloric intake for at least 8 hours. Fas ting plasma glucose results between 100 to 125 mg/dL indicate increased risk for diabetes (prediabetes). Fasting plasma glucose results greater than or equal to 126 mg/dL meet the criteria for diagnosis of diabetes. In the absence of unequivocal hyperglycemia, results should be confirmed by repeat testing. In a patient with classic symptoms of hyperglycemia or hyperglycemic crisis, random plasma glucose results greater than or equal to 200 mg/dL meet the criteria for diagnosis of diabetes. Reference: Standards of Medical Care in Diabetes 2016, [place] [employer]. Diabetes Care. 2016.39(Suppl 1). LAB BUN 9-24 mg/dL BUN High 47 LAB CRET 0.73-1.22 mg/dL Creatinine High 4.56 LAB NA 136-144 mmol/L Sodium 141 LAB K 3.7-5.1 mmol/L Potassium 3.7 LAB CL 97-105 mmol/L Chloride High 107 LAB CO2 22-30 mmol/L CO2 22 LAB AGAP 9-18 mmol/L Anion Gap 12 LAB ALT 10-54 U/L ALT 21 LAB GFRAA eGFR- Amer. 17 LAB GFRNAA . eGFR-All Other Races 14 Result Comment: eGFR (Estimated GFR) Units of measure: mL/min/1.73 meters squared eGFR is derived from the reexpressed MDRD Study equation using the following parameters: serum creatinine, age, gender and race. The creatinine assay has been calibrated to be traceable to IDMS. An eGFR <60 mL/min/1.73m2 for >3 months is consistent with chronic kidney disease. Refer to KDOQI guidelines for clinical interpretation. In patients with unstable renal function, e.g. those with acute kidney injury, the eGFR may not accurately reflect actual GFR. Performed By: #### DDMER, CBCDIF, AMYL, CMP, LIPA, HBA1C #### [facility] [address] [place], [place] [address] LIPASE Collected: 07/16/2018 Status: F Source: [place] 11:17 AM [facility] REPOSITORY TYPE CODE TESTS RESULT OUT OF REFERENCE UNITS RANGE LAB LIPA 16-61 U/L Lipase 23 Performed By: #### DDMER, CBCDIF, AMYL, CMP, LIPA, HBA1C #### [facility] [address] [place], [place] [address] HEMOGLOBIN A1C Collected: 07/16/2018 Status: F Source: [place] 11:17 [facility] REPOSITORY TYPE CODE TESTS RESULT OUT OF REFERENCE UNITS RANGE LAB HGBA1C 4.3-5.6 % High Hemoglobin A1c 7.7 LAB HBA0 mg/dL Est. Average Glucose 174 Result Comment: eAG: (Estimated average glucose) is a calculated value from HgbA1c and is medical collections representative of the average blood glucose level in the last 2-3 month period. Performed By: #### DDMER, CBCDIF, AMYL, CMP, LIPA, HBA1C #### [facility] [address] [place], [place] [address] XR CHEST 2V FRONTAL/LAT Observed: 07/16/2018 Status: F Source: [place] 11:08 AM [facility] REPOSITORY * * *Final Report* * * DATE OF EXAM: Jul 16 2018 11:08AM WOX [id number] - XR CHEST 2V FRONTAL/LAT / PROCEDURE REASON: Decreased breath sounds * * * * Physician Interpretation * * * * EXAMINATION: CHEST RADIOGRAPH (2 VIEW FRONTAL and LATERAL) CLINICAL HISTORY: Decreased breath sounds MQ: XC2_5 Comparison: 08/20/2017 RESULT: Lines, tubes, and devices: None. Lungs and pleura: Low lung volumes. Small bilateral pleural effusions with bibasilar atelectasis. Possible infiltrate in the left lung base. No pneumothorax. Cardiomediastinal silhouette: Normal cardiomediastinal silhouette. Other: . IMPRESSION: Small bilateral pleural effusions with bibasilar atelectasis and possible small left lung base infiltrate Hand Packager: FIDENCIO Transcribe Date/Time: Jul 16 2018 1:32P Dictated by : MELVA RIVERA MD This examination was interpreted and the report reviewed and electronically signed by: MELVA RIVERA MD on Jul 16 2018 1:33PM EST [id number] PROGRESS Observed: 07/16/2018 Status: COMPLETED Source: [place] 11:00 AM [facility] REPOSITORY HNO ID: [id number] Author: Maranda Chávez Service: (none) Author Type: (none) Type: Progress Notes Filed: 07/16/2018 11:08 AM Note Text: Radiology Service Progress Note PATIENT NAME: Williams Burgos DATE OF SERVICE: July 16, 2018 TIME: 11:00 AM PATIENT IDENTITY VERIFICATION COMPLETED USING TWO (2) METHODS: Patient confirmed name verbally and Date of . PATIENT GENDER DATA: Male PATIENT RELEVANT IMPLANT DATA REVIEWED: Not Applicable RADIOLOGY DEPARTMENT: General X-ray: Exam(s) Completed: Chest X-Ray PERIPHERAL IV DATA: Not applicable SIGNED BY: Maranda Chávez July 16, 2018 11:00 AM PROGRESS Observed: 07/16/2018 Status: COMPLETED Source: [place] 10:03 AM [facility] REPOSITORY HNO ID: [id number] Author: Anderson Gaston Service: (none) Author Type: Physician Type: Progress Notes Filed: 07/16/2018 5:13 PM Note Text: Reason for Visit Patient presents with: Established Patient: diabetes issues, elevated BP and cold Williams Burgos is a 47 year old male who presents here today for Above Complaints.. Health Maintenance BP CONTROLLED (<130/80) HPI Patient was highly non adherent to medication therapy and lifestyle in the past but now he seems to be more interested in his health... here to discuss peripheral edema. His legs has been swelling for the past couple weeks, It comes and goes and this time it stayed on...his kidney function is very poor, Notes he has gained 20 pounds since january but in the past 1 month he gained 10 of those 20. Notes that his urine, has not decreased. He is taking 40 mgs of lasix daily. He notes some dyspenea on exertion He notes feeling tired on and off, he sleeps all night. Echo was done earlier this year and was 65 ef DIABETES MELLITUS: Mr. Burgos was last seen 3 months ago. Since our last visit he denies excessive thirst or increased frequency of urination, chest pain or dyspnea , numbness, tingling or pain in extremities, new or unusual visual symptoms, low sugar/hypoglycemic reactions, weight loss/gain, lightheadedness/dizziness and bowel changes/loose stools. Patient admits to have low sugar/hypoglycemic reactions x1 episode a few weeks ago with a reading of 82. Follows a diabetic diet generally not very much. He is compliant with medication(s) and is tolerating med(s) without any side effects. He reports checking his glucose on a three times a day schedule with sugars in the fasting 200-300. Patient states he didn't know he needed labs done- not sure how his control has been. Patient notes that he has only been taking 25 units of Lantus at bedtime since hospital admission and takes 10units of novolog with meals. Patient's last HgA1C was 8.1 Today his fasting was in the range of 180 but after food, 1.5 hours it was 359 had corn flakes with milk- 1 percent milk, he ate a small bowl, he did take his insulin. Some times In the morning she gets up and it is around 200. No problem-specific Assessment AND Plan notes found for this encounter. PAST MEDICAL HISTORY Diagnosis Date - Bronchitis - Depression - Detached retina - DM type 2, goal HbA1c < 7% ([facility]) - GERD (gastroesophageal reflux disease) - Hyperlipidemia - Kidney stones - PNA (pneumonia) - Unspecified essential hypertension - Vitamin D deficiency PAST SURGICAL HISTORY Procedure Laterality Date - CYSTOSCOPY,REMV CALCULUS,COMPLIC 1999 - PAST SURGICAL HISTORY OF Left 2012 AND 2014 removal eye fluid with instillation oil - REMOVAL GALLBLADDER 1998 Cholecystectomy FAMILY HISTORY Problem Relation Age of Onset - Colon Cancer Father 53 - Diabetes Brother 52 - Diabetes Sister - Diabetes Mother 78 - Cancer Brother 49 lung - Diabetes Son Social History Substance Use Topics - Smoking status: Never Smoker - Smokeless tobacco: Former User Types: Snuff Comment: snuff x 33 years - Alcohol use Yes Comment: rarely Past medical history, appointments, medications, allergies reviewed. Pertinent Lab/Diagnostic Studies are reviewed and discussed today Current Outpatient Prescriptions: - hydrALAZINE (APRESOLINE) 25 mg tablet - calcitriol (ROCALTROL) 0.5 mcg capsule - benzonatate (TESSALON PERLES) 100 mg capsule - ondansetron orally disintegrating (ZOFRAN ODT) 4 mg disintegrating tablet - tamsulosin ER (FLOMAX) 0.4 mg cap - buPROPion XL (WELLBUTRIN XL) 300 mg 24 hr tablet - insulin aspart U-100 (NOVOLOG FLEXPEN U-100 INSULIN) 100 unit/mL inpn - insulin glargine (LANTUS SOLOSTAR U-100 INSULIN) 100 unit/mL (3 mL) inpn - lisinopril (ZESTRIL, PRINIVIL) 20 mg tablet - amLODIPine (NORVASC) 5 mg tablet - Insulin [place], Disposable, (BD ULTRA-FINE SANDRA PEN NEEDLE) 32 gauge x / ndle - CPAP - gabapentin (NEURONTIN) 300 mg capsule - atorvastatin (LIPITOR) 20 mg tablet - atenolol (TENORMIN) 100 mg tablet - Lancets lancets - blood sugar diagnostic (BLOOD GLUCOSE TEST) test strip - Blood-Glucose Meter monitoring kit - furosemide (LASIX) 20 mg tablet - >Compression Knee Highs 30-40 mm - Ranitidine HCl (ZANTAC) 300 mg tablet - aspirin 81 mg chewable tablet - ACETAMINOPHEN ORAL Review of Systems CONSTITUTIONAL: No fevers, chills night sweats, unintended weight loss CARDIOVASCULAR: No chest pain, dyspnea, palpitations, orthopnea, PND, ankle edema. PULM: No dyspnea, unexplained cough. GI: No dysphagia/odynophagia, problematic reflux, constipation, diarrhea, changes in stool habits, hematochezia, melena. : No new urinary complaints, including dysuria, gross hematuria or pyuria. NEURO: No new balance problems, peripheral weakness/paresthesias or numbness of concern. Physical Exam BP 164/84 (BP Site: Left Arm, BP Position: Sitting, BP Cuff Size: Large Adult) Pulse 74 Resp 12 Ht 170.2 cm (5' 7) Wt 104.8 kg (231 lb) SpO2 97% BMI 36.18 kg/m? General appearance: patient looks pale.. alert, in no acute distress, well nourished. Skin: Skin color, texture, turgor normal, no suspicious rashes or lesions Head: Normocephalic, no masses, lesions, tenderness or abnormalities Eyes: Anicteric sclera. Pupils are equally round and reactive to light. Extraocular movements are intact. Lungs: decreased breath sounds in the lower lobes Heart: RRR without murmur, gallop, or rubs. Extremities: No deformities, edema 4+ present above the knee skin discoloration, clubbing or cyanosis. Good capillary refill. ASSESSMENT/PLAN: 1. Uncontrolled type 2 diabetes mellitus with complication, with long-term current use of insulin (HCC) - ICD9: 250.82, V58.67, ICD10: E11.8, E11.65, Z79.4 (primary diagnosis) Better controlled - Continue current medications 2. Hypertension goal BP (blood pressure) < 140/90 - ICD9: 401.9, ICD10: I10 - good control - Recommended regular aerobic exercise. - Recommend home blood pressure monitoring, to bring results in on next visit - Goal of BP <130/80 - HYDRALAZINE 25 MG TABLET 3. Pedal edema - ICD9: 782.3, ICD10: R60.0 Echo to check his heart function Could also be his kidneys 4. MILLIGAN (dyspnea on exertion) - ICD9: 786.09, ICD10: R06.09 Will get an echo - BASIC METABOLIC PNL 4. MILILGAN (dyspnea on exertion) - ICD9: 786.09, ICD10: R06.09 - BASIC METABOLIC PNL - ECHO 5. Decreased breath sounds - ICD9: 786.7, ICD10: R06.89 Chest xray - CBC + DIFF ANDERSON GASTON MD CNOV Observed: 07/16/2018 Status: COMPLETED Source: [place] 9:40 AM [facility] REPOSITORY Office Visit (INTMWS) WILLIAMS BURGOS ([id number]) 1970 M Date Time Provider Department 07/16/18 9:40 AM ANDERSON GASTON INTMWS During your visit today, we recorded the following information about you: Pulse Respiration Blood pressure Weight 74/minute 12/minute 164/84 104.8 kg Height 1.702 m ANDERSON GASTON MD 07/16/2018 5:13 PM Addendum Reason for Visit Patient presents with: Established Patient: diabetes issues, elevated BP and cold Williams Burgos is a 47 year old male who presents here today for Above Complaints.. Health Maintenance BP CONTROLLED (<130/80) HPI Patient was highly non adherent to medication therapy and lifestyle in the past but now he seems to be more interested in his health... here to discuss peripheral edema. His legs has been swelling for the past couple weeks, It comes and goes and this time it stayed on...his kidney function is very poor, Notes he has gained 20 pounds since january but in the past 1 month he gained 10 of those 20. Notes that his urine, has not decreased. He is taking 40 mgs of lasix daily. He notes some dyspenea on exertion He notes feeling tired on and off, he sleeps all night. Echo was done earlier this year and was 65 ef DIABETES MELLITUS: Mr. Burgos was last seen 3 months ago. Since our last visit he denies excessive thirst or increased frequency of urination, chest pain or dyspnea , numbness, tingling or pain in extremities, new or unusual visual symptoms, low sugar/hypoglycemic reactions, weight loss/gain, lightheadedness/dizziness and bowel changes/loose stools. Patient admits to have low sugar/hypoglycemic reactions x1 episode a few weeks ago with a reading of 82. Follows a diabetic diet generally not very much. He is compliant with medication(s) and is tolerating med(s) without any side effects. He reports checking his glucose on a three times a day schedule with sugars in the fasting 200-300. Patient states he didn't know he needed labs done- not sure how his control has been. Patient notes that he has only been taking 25 units of Lantus at bedtime since hospital admission and takes 10units of novolog with meals. Patient's last HgA1C was 8.1 Today his fasting was in the range of 180 but after food, 1.5 hours it was 359 had corn flakes with milk- 1 percent milk, he ate a small bowl, he did take his insulin. Some times In the morning she gets up and it is around 200. No problem-specific Assessment AND Plan notes found for this encounter. PAST MEDICAL HISTORY Diagnosis Date - Bronchitis - Depression - Detached retina - DM type 2, goal HbA1c < 7% (HCC) - GERD (gastroesophageal reflux disease) - Hyperlipidemia - Kidney stones - PNA (pneumonia) - Unspecified essential hypertension - Vitamin D deficiency PAST SURGICAL HISTORY Procedure Laterality Date - CYSTOSCOPY,REMV CALCULUS,COMPLIC 1999 - PAST SURGICAL HISTORY OF Left 2012 AND 2014 removal eye fluid with instillation oil - REMOVAL GALLBLADDER 1998 Cholecystectomy FAMILY HISTORY Problem Relation Age of Onset - Colon Cancer Father 53 - Diabetes Brother 52 - Diabetes Sister - Diabetes Mother 78 - Cancer Brother 49 lung - Diabetes Son Social History Substance Use Topics - Smoking status: Never Smoker - Smokeless tobacco: Former User Types: Snuff Comment: snuff x 33 years - Alcohol use Yes Comment: rarely Past medical history, appointments, medications, allergies reviewed. Pertinent Lab/Diagnostic Studies are reviewed and discussed today Current Outpatient Prescriptions: - hydrALAZINE (APRESOLINE) 25 mg tablet - calcitriol (ROCALTROL) 0.5 mcg capsule - benzonatate (TESSALON PERLES) 100 mg capsule - ondansetron orally disintegrating (ZOFRAN ODT) 4 mg disintegrating tablet - tamsulosin ER (FLOMAX) 0.4 mg cap - buPROPion XL (WELLBUTRIN XL) 300 mg 24 hr tablet - insulin aspart U-100 (NOVOLOG FLEXPEN U-100 INSULIN) 100 unit/mL inpn - insulin glargine (LANTUS SOLOSTAR U-100 INSULIN) 100 unit/mL (3 mL) inpn - lisinopril (ZESTRIL, PRINIVIL) 20 mg tablet - amLODIPine (NORVASC) 5 mg tablet - Insulin [place], Disposable, (BD ULTRA-FINE SANDRA PEN NEEDLE) 32 gauge x 32 ndle - CPAP - gabapentin (NEURONTIN) 300 mg capsule - atorvastatin (LIPITOR) 20 mg tablet - atenolol (TENORMIN) 100 mg tablet - Lancets lancets - blood sugar diagnostic (BLOOD GLUCOSE TEST) test strip - Blood-Glucose Meter monitoring kit - furosemide (LASIX) 20 mg tablet - >Compression Knee Highs 30-40 mm - Ranitidine HCl (ZANTAC) 300 mg tablet - aspirin 81 mg chewable tablet - ACETAMINOPHEN ORAL Review of Systems CONSTITUTIONAL: No fevers, chills night sweats, unintended weight loss CARDIOVASCULAR: No chest pain, dyspnea, palpitations, orthopnea, PND, ankle edema. PULM: No dyspnea, unexplained cough. GI: No dysphagia/odynophagia, problematic reflux, constipation, diarrhea, changes in stool habits, hematochezia, melena. : No new urinary complaints, including dysuria, gross hematuria or pyuria. NEURO: No new balance problems, peripheral weakness/paresthesias or numbness of concern. Physical Exam BP 164/84 (BP Site: Left Arm, BP Position: Sitting, BP Cuff Size: Large Adult) Pulse 74 Resp 12 Ht 170.2 cm (5' 7) Wt 104.8 kg (231 lb) SpO2 97% BMI 36.18 kg/m? General appearance: patient looks pale.. alert, in no acute distress, well nourished. Skin: Skin color, texture, turgor normal, no suspicious rashes or lesions Head: Normocephalic, no masses, lesions, tenderness or abnormalities Eyes: Anicteric sclera. Pupils are equally round and reactive to light. Extraocular movements are intact. Lungs: decreased breath sounds in the lower lobes Heart: RRR without murmur, gallop, or rubs. Extremities: No deformities, edema 4+ present above the knee skin discoloration, clubbing or cyanosis. Good capillary refill. ASSESSMENT/PLAN: 1. Uncontrolled type 2 diabetes mellitus with complication, with long-term current use of insulin (HCC) - ICD9: 250.82, V58.67, ICD10: E11.8, E11.65, Z79.4 (primary diagnosis) Better controlled - Continue current medications 2. Hypertension goal BP (blood pressure) < 140/90 - ICD9: 401.9, ICD10: I10 - good control - Recommended regular aerobic exercise. - Recommend home blood pressure monitoring, to bring results in on next visit - Goal of BP <130/80 - HYDRALAZINE 25 MG TABLET 3. Pedal edema - ICD9: 782.3, ICD10: R60.0 Echo to check his heart function Could also be his kidneys 4. MILLIGAN (dyspnea on exertion) - ICD9: 786.09, ICD10: R06.09 Will get an echo - BASIC METABOLIC PNL 4. MILLIGAN (dyspnea on exertion) - ICD9: 786.09, ICD10: R06.09 - BASIC METABOLIC PNL - ECHO 5. Decreased breath sounds - ICD9: 786.7, ICD10: R06.89 Chest xray - CBC + DIFF ANDERSON GASTON MD Referring Provider: SELF [200] Allergies As of Date: 07/16/2018 (No Known Allergies) Date Reviewed: 07/16/2018 Reviewed by: Catalina Lala LPN - Fully Assessed Reason for Visit: Established Patient [175] Cmt: diabetes issues, elevated BP and cold Reason For Visit History Recorded Primary Visit Diagnosis:Uncontrolled type 2 diabetes mellitus with complication, with long-term current use of insulin (HCC) [E11.8, E11.65, Z79.4] Other Visit Diagnoses:Hypertension goal BP (blood pressure) < 140/90 [I10] Pedal edema [R60.0] MILLIGAN (dyspnea on exertion) [R06.09] Decreased breath sounds [R06.89] Order(s):BASIC METABOLIC PNL [SQBMP] Order #: [id number] FUTURE ECHO [[id number]] Order #: [id number]: 1 FUTURE perflutren lipid microspheres (DEFINITY) 1.1 mg/mL injection (to be provided with echo procedure)Inject 1.3 mL intravenously as directed.Disp: 1.3 mLRfl: 0 CBC + DIFF [SQCBCDIF] Order #: [id number] FUTURE XR CHEST 2V FRONTAL/LAT [[id number]] Order #: [id number] FUTURE D-DIMER [SQDDMER] Order #: [id number] FUTURE Prescriptions as of 07/16/2018 Sig: HYDRALAZINE 25 MG TABLET Take 1 tablet by mouth three * CALCITRIOL 0.5 MCG CAPSULE Take 1 capsule by mouth once * PERFLUTREN LIPID MICROSPHERES* Inject 1.3 mL intravenously a* BENZONATATE 100 MG CAPSULE Take 2 capsules by mouth thre* ONDANSETRON 4 MG DISINTEGRATI* Take 1 tablet by mouth every * TAMSULOSIN 0.4 MG CAPSULE TAKE 1 CAPSULE BY MOUTH ONCE * BUPROPION XL 300 MG 24 HR TAB TAKE 1 TABLET BY MOUTH ONCE D* INSULIN ASPART U-100 100 UNI* Inject insulin three times da* INSULIN GLARGINE (U-100) 100 * Inject 35 Units subcutaneousl* LISINOPRIL 20 MG TABLET Take 1 tablet by mouth once d* AMLODIPINE 5 MG TABLET Take 1 tablet by mouth once d* PEN NEEDLE, DIABETIC 32 GAUGE* Use one needle for each dose,* CPAP Initiate Auto PAP @ 5- 20 cm o* GABAPENTIN 300 MG CAPSULE Take 1 capsule by mouth three* ATORVASTATIN 20 MG TABLET Take 1 tablet by mouth at bed* ATENOLOL 100 MG TABLET Take 1 tablet by mouth once d* LANCETS LANCETS FOR GLUCOSE METER. TE* BLOOD SUGAR DIAGNOSTIC STRIPS TEST BLOOD SUGAR 3 TIMES PER * BLOOD-GLUCOSE METER KIT Glucose Meter of Choice - Kit* FUROSEMIDE 20 MG TABLET Take 1 tablet by mouth twice * COMPOUNDED PRESCRIPTION KNEE HIGH COMPRESSION STOCKIN* RANITIDINE 300 MG TABLET Take 1 tablet by mouth daily * ASPIRIN 81 MG CHEWABLE TABLET Take 81 mg by mouth once adela* ACETAMINOPHEN ORAL Take by mouth. 1000 mg bid f* Medication notes this encounter BENZONATATE 100 MG CAPSULE >> Catalina Lala LPN 07/16/2018 9:52 AM >> CATALINA LALA LPN SatJul 16, 2018 9:52 AM completed Problem List As Of Date 07/16/2018 Noted Resolved Uncontrolled type 2 diabetes mellitus with comp*INVALID FOR* More... Hypertension goal BP (blood pressure) < 140/90 *INVALID FOR* More... Other hyperlipidemia [E78.49] INVALID FOR* More... DEPRESSIVE DISORDER NEC [F32.9] INVALID FOR* More... ED (erectile dysfunction) [N52.9] INVALID FOR* Lower urinary tract symptoms (LUTS) [R39.9] INVALID FOR* History of kidney stones [Z87.442] INVALID FOR* Microscopic hematuria [R31.29] INVALID FOR* Diabetic polyneuropathy associated with type 2 *INVALID FOR* More... Acute pain of right shoulder [M25.511] INVALID FOR* More... Nausea [R11.0] INVALID FOR* More... Vomiting [R11.10] INVALID FOR* More... Moderate episode of recurrent major depressive *INVALID FOR* Stage 3 chronic kidney disease [N18.3] INVALID FOR* Right leg weakness [R29.898] INVALID FOR* Gait instability [R26.81] INVALID FOR* Prescriptions ordered this encounter Disp Refills Start End PERFLUTREN LIPID MICROSPHERES 1.1 MG* 1.3 * 0 07/16/2018 07/16/2019 Class: In Office Route: INTRAVENOUS Sig: Inject 1.3 mL intravenously as directed. Encounter Status:Closed by ANDERSON GASTON MD on 07/16/18 RENAL PROFILE Collected: 07/10/2018 Status: F Source: [facility] 12:10 PM [facility] REPOSITORY TYPE CODE TESTS RESULT OUT OF RANGE REFERENCE UNITS LAB L501.0100 74-106 mg/dL High GLU 171 Result Comment: Fasting Glucose result greater than or equal to 126 mg/dL suggests DIABETES MELLITUS per A.D.A. criteria. Please note revised GLUCOSE reference range effective 2017. LAB L501.1000 7-18 mg/dL High BUN 42 LAB L501.1100 0.70-1.30 mg/dL High CREAT,SERUM 3.98 Result Comment: The validity of the calculated GFR AND GFRAA in patients over 70 years has not been determined. Clinical correlation is essential. LAB L501.1110 >60 mL/min Low EST GFR 17 Result Comment: Non- GFR Calc LAB L501.1115 >60 mL/min Low EST GFR - AA 21 Result Comment: GFR Calc LAB L501.1300 10-20 RATIO Normal BUN/CRE 10.6 LAB L501.1800 3.2-5.0 g/dL Low ALB 2.2 LAB L501.2200 8.5-10.1 mg/dL Low CA 7.5 LAB L501.2300 2.5-4.9 mg/dL Normal PHOS 4.0 LAB L501.5300 136-145 mmol/L NA Normal 143 LAB L501.5600 3.5-5.1 mmol/L K Normal 3.7 LAB L501.5900 98-107 mmol/L High CL 111 LAB L501.6100 21.0-32.0 mmol/L Normal CO2 26.0 Performed By: #### L500.3600 #### [facility] [address] [place], [place], [address] PTHIN Collected: 07/10/2018 Status: F Source: [place] 12:10 PM [facility] REPOSITORY TYPE CODE TESTS RESULT OUT OF RANGE REFERENCE UNITS LAB L509.1000 18.4-80.1 pg/mL High PTHIN 349.8 Performed By: #### L509.1000 #### [facility] [address] [place], [address] GROUP A STREP BY Collected: 06/25/2018 Status: F Source: [place] PCR 11:00 AM [facility] REPOSITORY TYPE CODE TESTS RESULT OUT OF REFERENCE UNITS RANGE LAB GASSR Throat Swab GAS Specimen Source LAB PCRGAS Negative for Group A Strep Group A PCR Streptococcus by PCR. Result Comment: This test was developed and its performance characteristics determined by [facility]'s [facility] [place] ([facility]). It has not been cleared or approved by the FDA. [facility] is regulated under CLIA as qualified to perform high-complexity testing. This test is used for clinical purposes. It should not be regarded as inv estigational or for research. Performed By: #### GASPCR #### [facility] [address] [place], [place] [address] PROGRESS Observed: 06/25/2018 Status: COMPLETED Source: [place] 10:24 AM [facility] REPOSITORY HNO ID: [id number] Author: Lillian Lee) Michael Service: (none) Author Type: Physician Eyeglass Assembler Type: Progress Notes Filed: 06/25/2018 12:41 PM Note Text: Subjective HPI Patient presents with chief complaint of a sore throat ?4 days. He has felt feverish, no temperature taken. He has had a cough and congestion as well. Patient has an uncontrolled type II diabetic with stage III kidney disease. He states he also did not take his blood pressure medication and he is 190/104. He did throw up once this morning. Denies abdominal pain or diarrhea. Feels like he has a lump in his throat. He does chew tobacco, denies any smoking. He was able to keep fluids down this morning. He did not check his blood sugar. No chest pain or shortness of breath. Denies asthma. Review of Systems Constitutional: Positive for fever. HENT: Positive for congestion and sore throat. Negative for ear pain. Eyes: Negative. Respiratory: Positive for cough. Cardiovascular: Negative. Gastrointestinal: Negative. Genitourinary: Negative. Musculoskeletal: Negative. Skin: Negative. All other systems reviewed and are negative. PAST MEDICAL HISTORY Diagnosis Date - Bronchitis - Depression - Detached retina - DM type 2, goal HbA1c < 7% ([facility]) - GERD (gastroesophageal reflux disease) - Hyperlipidemia - Kidney stones - PNA (pneumonia) - Unspecified essential hypertension - Vitamin D deficiency Current Outpatient Prescriptions: tamsulosin ER (FLOMAX) 0.4 mg cap TAKE 1 CAPSULE BY MOUTH ONCE DAILY AT BEDTIME Disp: 30 capsule Rfl: 11 buPROPion XL (WELLBUTRIN XL) 300 mg 24 hr tablet TAKE 1 TABLET BY MOUTH ONCE DAILY Disp: 30 tablet Rfl: 11 insulin aspart U-100 (NOVOLOG FLEXPEN U-100 INSULIN) 100 unit/mL inpn Inject insulin three times daily at first bite of food. Take 10 units with each meal Disp: 10 Pen Rfl: 11 insulin glargine (LANTUS SOLOSTAR U-100 INSULIN) 100 unit/mL (3 mL) inpn Inject 35 Units subcutaneously every evening. Disp: 20 Pen Rfl: 6 lisinopril (ZESTRIL, PRINIVIL) 20 mg tablet Take 1 tablet by mouth once daily. Disp: 30 tablet Rfl: 2 amLODIPine (NORVASC) 5 mg tablet Take 1 tablet by mouth once daily. Disp: 30 tablet Rfl: 11 Insulin [place], Disposable, (BD ULTRA-FINE SANDRA PEN NEEDLE) 32 gauge x 5/32 ndle Use one needle for each dose, 3 times daily. E11.9 Disp: 100 Each Rfl: 11 CPAP Initiate Auto PAP @ 5-20 cm of water with humidification. Mask (per patient preference) optional chin strap (if indicated) , filters, tubing, humidifier and lifetime supplies. Disp: 1 Device Rfl: 0 atorvastatin (LIPITOR) 20 mg tablet Take 1 tablet by mouth at bedtime as needed. Disp: 90 tablet Rfl: 3 atenolol (TENORMIN) 100 mg tablet Take 1 tablet by mouth once daily. Disp: 90 tablet Rfl: 3 Lancets lancets LANCETS FOR GLUCOSE METER. TEST DIRECTED Disp: 100 Each Rfl: 11 blood sugar diagnostic (BLOOD GLUCOSE TEST) test strip TEST BLOOD SUGAR 3 TIMES PER DAY. DX: 250.E11.9. INSULIN DEP: yes Disp: 100 Strip Rfl: 11 Blood-Glucose Meter monitoring kit Glucose Meter of Choice - Kit - Dx: Type 2 DM - Controlled E11.9 Disp: 1 Each Rfl: 0 furosemide (LASIX) 20 mg tablet Take 1 tablet by mouth twice daily. Disp: 60 tablet Rfl: 5 >Compression Knee Highs 30-40 mm KNEE HIGH COMPRESSION STOCKINGS, 30-40 MM, I DX: EDEMA Disp: 1 Each Rfl: 1 Ranitidine HCl (ZANTAC) 300 mg tablet Take 1 tablet by mouth daily before dinner. Disp: 30 tablet Rfl: 1 aspirin 81 mg chewable tablet Take 81 mg by mouth once daily. Disp: Rfl: ACETAMINOPHEN ORAL Take by mouth. 1000 mg bid for pain / aches Disp: Rfl: benzonatate (TESSALON PERLES) 100 mg capsule Take 2 capsules by mouth three times daily as needed. Disp: 30 capsule Rfl: 0 ondansetron orally disintegrating (ZOFRAN ODT) 4 mg disintegrating tablet Take 1 tablet by mouth every 8 hours as needed for Nausea/Vomiting. Disp: 3 tablet Rfl: 0 gabapentin (NEURONTIN) 300 mg capsule Take 1 capsule by mouth three times daily for 30 days. Disp: 270 capsule Rfl: 2 No current facility-administered medications for this visit. PAST SURGICAL HISTORY Procedure Laterality Date - CYSTOSCOPY,REMV CALCULUS,COMPLIC 1999 - PAST SURGICAL HISTORY OF Left 2012 AND 2014 removal eye fluid with instillation oil - REMOVAL GALLBLADDER 1998 Cholecystectomy FAMILY HISTORY Problem Relation Age of Onset - Colon Cancer Father 53 - Diabetes Brother 52 - Diabetes Sister - Diabetes Mother 78 - Cancer Brother 49 lung - Diabetes Son Social History Substance Use Topics - Smoking status: Never Smoker - Smokeless tobacco: Current User Types: Snuff Comment: snuff x 33 years - Alcohol use Yes Comment: rarely BP 190/104 Pulse 78 Temp 36.2 ?C (97.1 ?F) (Tympanic) Resp 16 Wt 99.4 kg (219 lb 3.2 oz) SpO2 98% BMI 33.34 kg/m? Objective Physical Exam Constitutional: He is oriented to person, place, and time and well-developed, well-nourished, and in no distress. HENT: Head: Normocephalic and atraumatic. Right Ear: Tympanic membrane, external ear and ear canal normal. Left Ear: Tympanic membrane, external ear and ear canal normal. Nose: Mucosal edema and rhinorrhea present. Mouth/Throat: Uvula is midline and mucous membranes are normal. Posterior oropharyngeal edema and posterior oropharyngeal erythema present. No oropharyngeal exudate or tonsillar abscesses. Neck: Normal range of motion. Neck supple. No thyromegaly present. Cardiovascular: Normal rate, regular rhythm and normal heart sounds. Pulmonary/Chest: Effort normal and breath sounds normal. Lymphadenopathy: He has no cervical adenopathy. Neurological: He is alert and oriented to person, place, and time. Skin: Skin is warm and dry. Psychiatric: Affect and judgment normal. Nursing note and vitals reviewed. ASSESSMENT/PLAN: 1. Sore throat - ICD9: 462, ICD10: J02.9 (primary diagnosis) - Rapid Strep negative in the office today and Throat culture pending - Discussed supportive care treatment with fluids, rest and analgesia. - RAPID STREP TEST B/O - GROUP A STREPTOCOCCUS BY PCR 2. Viral URI - ICD9: 465.9, ICD10: J06.9 - Discussed viral etiology and rationale for treatment. - Symptomatic treatment with prn analgesia - Supportive care with fluids and rest - Discussed with patient if he continues to vomit throughout the day, feels like his throat is swelling, or has any other worsening concerning symptoms would recommend the ER. Also recommended if he continues to have the feeling that he is a lump in his throat, follow-up with PCP. He has chewed tobacco for 33 years, may warrant imaging if it does not resolve. No signs of peritonsillar abscess on exam today, he is handling secretions. Patient's blood pressure also improved to 156/94 and he has not taken any of his blood pressure medications. I discussed making sure he takes his when he gets home and follow up with PCP. ROMULO Mathews Observed: 06/25/2018 Status: COMPLETED Source: [place] 10:00 AM [facility] REPOSITORY Office Visit ([facility]) WILLIAMS BURGOS ([id number]) 1970 M Date Time Provider Department 06/25/18 10:00 AM LILLIAN LEMUS (AJ) [facility] During your visit today, we recorded the following information about you: Temperature Pulse Respiration Blood pressure 97.1 degrees 78/minute 16/minute 190/104 Weight 99.4 kg Lillian Lemus PA-C 06/25/2018 12:41 PM Addendum Subjective HPI Patient presents with chief complaint of a sore throat ?4 days. He has felt feverish, no temperature taken. He has had a cough and congestion as well. Patient has an uncontrolled type II diabetic with stage III kidney disease. He states he also did not take his blood pressure medication and he is 190/104. He did throw up once this morning. Denies abdominal pain or diarrhea. Feels like he has a lump in his throat. He does chew tobacco, denies any smoking. He was able to keep fluids down this morning. He did not check his blood sugar. No chest pain or shortness of breath. Denies asthma. Review of Systems Constitutional: Positive for fever. HENT: Positive for congestion and sore throat. Negative for ear pain. Eyes: Negative. Respiratory: Positive for cough. Cardiovascular: Negative. Gastrointestinal: Negative. Genitourinary: Negative. Musculoskeletal: Negative. Skin: Negative. All other systems reviewed and are negative. PAST MEDICAL HISTORY Diagnosis Date - Bronchitis - Depression - Detached retina - DM type 2, goal HbA1c < 7% ([facility]) - GERD (gastroesophageal reflux disease) - Hyperlipidemia - Kidney stones - PNA (pneumonia) - Unspecified essential hypertension - Vitamin D deficiency Current Outpatient Prescriptions: tamsulosin ER (FLOMAX) 0.4 mg cap TAKE 1 CAPSULE BY MOUTH ONCE DAILY AT BEDTIME Disp: 30 capsule Rfl: 11 buPROPion XL (WELLBUTRIN XL) 300 mg 24 hr tablet TAKE 1 TABLET BY MOUTH ONCE DAILY Disp: 30 tablet Rfl: 11 insulin aspart U-100 (NOVOLOG FLEXPEN U-100 INSULIN) 100 unit/mL inpn Inject insulin three times daily at first bite of food. Take 10 units with each meal Disp: 10 Pen Rfl: 11 insulin glargine (LANTUS SOLOSTAR U-100 INSULIN) 100 unit/mL (3 mL) inpn Inject 35 Units subcutaneously every evening. Disp: 20 Pen Rfl: 6 lisinopril (ZESTRIL, PRINIVIL) 20 mg tablet Take 1 tablet by mouth once daily. Disp: 30 tablet Rfl: 2 amLODIPine (NORVASC) 5 mg tablet Take 1 tablet by mouth once daily. Disp: 30 tablet Rfl: 11 Insulin [place], Disposable, (BD ULTRA-FINE SANDRA PEN NEEDLE) 32 gauge x 5/32 ndle Use one needle for each dose, 3 times daily. E11.9 Disp: 100 Each Rfl: 11 CPAP Initiate Auto PAP @ 5-20 cm of water with humidification. Mask (per patient preference) optional chin strap (if indicated) , filters, tubing, humidifier and lifetime supplies. Disp: 1 Device Rfl: 0 atorvastatin (LIPITOR) 20 mg tablet Take 1 tablet by mouth at bedtime as needed. Disp: 90 tablet Rfl: 3 atenolol (TENORMIN) 100 mg tablet Take 1 tablet by mouth once daily. Disp: 90 tablet Rfl: 3 Lancets lancets LANCETS FOR GLUCOSE METER. TEST DIRECTED Disp: 100 Each Rfl: 11 blood sugar diagnostic (BLOOD GLUCOSE TEST) test strip TEST BLOOD SUGAR 3 TIMES PER DAY. DX: 250.E11.9. INSULIN DEP: yes Disp: 100 Strip Rfl: 11 Blood-Glucose Meter monitoring kit Glucose Meter of Choice - Kit - Dx: Type 2 DM - Controlled E11.9 Disp: 1 Each Rfl: 0 furosemide (LASIX) 20 mg tablet Take 1 tablet by mouth twice daily. Disp: 60 tablet Rfl: 5 >Compression Knee Highs 30-40 mm KNEE HIGH COMPRESSION STOCKINGS, 30-40 MM, I DX: EDEMA Disp: 1 Each Rfl: 1 Ranitidine HCl (ZANTAC) 300 mg tablet Take 1 tablet by mouth daily before dinner. Disp: 30 tablet Rfl: 1 aspirin 81 mg chewable tablet Take 81 mg by mouth once daily. Disp: Rfl: ACETAMINOPHEN ORAL Take by mouth. 1000 mg bid for pain / aches Disp: Rfl: benzonatate (TESSALON PERLES) 100 mg capsule Take 2 capsules by mouth three times daily as needed. Disp: 30 capsule Rfl: 0 ondansetron orally disintegrating (ZOFRAN ODT) 4 mg disintegrating tablet Take 1 tablet by mouth every 8 hours as needed for Nausea/Vomiting. Disp: 3 tablet Rfl: 0 gabapentin (NEURONTIN) 300 mg capsule Take 1 capsule by mouth three times daily for 30 days. Disp: 270 capsule Rfl: 2 No current facility-administered medications for this visit. PAST SURGICAL HISTORY Procedure Laterality Date - CYSTOSCOPY,REMV CALCULUS,COMPLIC 1999 - PAST SURGICAL HISTORY OF Left 2012 AND 2014 removal eye fluid with instillation oil - REMOVAL GALLBLADDER 1998 Cholecystectomy FAMILY HISTORY Problem Relation Age of Onset - Colon Cancer Father 53 - Diabetes Brother 52 - Diabetes Sister - Diabetes Mother 78 - Cancer Brother 49 lung - Diabetes Son Social History Substance Use Topics - Smoking status: Never Smoker - Smokeless tobacco: Current User Types: Snuff Comment: snuff x 33 years - Alcohol use Yes Comment: rarely BP 190/104 Pulse 78 Temp 36.2 ?C (97.1 ?F) (Tympanic) Resp 16 Wt 99.4 kg (219 lb 3.2 oz) SpO2 98% BMI 33.34 kg/m? Objective Physical Exam Constitutional: He is oriented to person, place, and time and well-developed, well-nourished, and in no distress. HENT: Head: Normocephalic and atraumatic. Right Ear: Tympanic membrane, external ear and ear canal normal. Left Ear: Tympanic membrane, external ear and ear canal normal. Nose: Mucosal edema and rhinorrhea present. Mouth/Throat: Uvula is midline and mucous membranes are normal. Posterior oropharyngeal edema and posterior oropharyngeal erythema present. No oropharyngeal exudate or tonsillar abscesses. Neck: Normal range of motion. Neck supple. No thyromegaly present. Cardiovascular: Normal rate, regular rhythm and normal heart sounds. Pulmonary/Chest: Effort normal and breath sounds normal. Lymphadenopathy: He has no cervical adenopathy. Neurological: He is alert and oriented to person, place, and time. Skin: Skin is warm and dry. Psychiatric: Affect and judgment normal. Nursing note and vitals reviewed. ASSESSMENT/PLAN: 1. Sore throat - ICD9: 462, ICD10: J02.9 (primary diagnosis) - Rapid Strep negative in the office today and Throat culture pending - Discussed supportive care treatment with fluids, rest and analgesia. - RAPID STREP TEST B/O - GROUP A STREPTOCOCCUS BY PCR 2. Viral URI - ICD9: 465.9, ICD10: J06.9 - Discussed viral etiology and rationale for treatment. - Symptomatic treatment with prn analgesia - Supportive care with fluids and rest - Discussed with patient if he continues to vomit throughout the day, feels like his throat is swelling, or has any other worsening concerning symptoms would recommend the ER. Also recommended if he continues to have the feeling that he is a lump in his throat, follow-up with PCP. He has chewed tobacco for 33 years, may warrant imaging if it does not resolve. No signs of peritonsillar abscess on exam today, he is handling secretions. Patient's blood pressure also improved to 156/94 and he has not taken any of his blood pressure medications. I discussed making sure he takes his when he gets home and follow up with PCP. Lillian Lemus PA-C Referring Provider: SELF [[id number]] Allergies As of Date: 06/25/2018 (No Known Allergies) Date Reviewed: 06/25/2018 Reviewed by: Antonia Lemos LPN - Fully Assessed Reason for Visit: sore throat, cough, congestion and fever [Other] Cmt: x 4 days Primary Visit Diagnosis:Sore throat [J02.9] Other Visit Diagnosis:Viral URI [J06.9] Order(s):RAPID STREP TEST B/O [7004761] Order #: [id number] GROUP A STREPTOCOCCUS BY PCR [SQGASPCR] Order #: [id number] benzonatate (TESSALON PERLES) 100 mg capsuleTake 2 capsules by mouth three times daily as needed.Disp: 30 capsuleRfl: 0 ondansetron orally disintegrating (ZOFRAN ODT) 4 mg disintegrating tabletTake 1 tablet by mouth every 8 hours as needed for Nausea/Vomiting.Disp: 3 tabletRfl: 0 Prescriptions as of 06/25/2018 Sig: TAMSULOSIN 0.4 MG CAPSULE TAKE 1 CAPSULE BY MOUTH ONCE * BUPROPION XL 300 MG 24 HR TAB TAKE 1 TABLET BY MOUTH ONCE D* INSULIN ASPART U-100 100 UNI* Inject insulin three times da* INSULIN GLARGINE (U-100) 100 * Inject 35 Units subcutaneousl* LISINOPRIL 20 MG TABLET Take 1 tablet by mouth once d* AMLODIPINE 5 MG TABLET Take 1 tablet by mouth once d* PEN NEEDLE, DIABETIC 32 GAUGE* Use one needle for each dose,* CPAP Initiate Auto PAP @ 5- 20 cm o* ATORVASTATIN 20 MG TABLET Take 1 tablet by mouth at bed* ATENOLOL 100 MG TABLET Take 1 tablet by mouth once d* LANCETS LANCETS FOR GLUCOSE METER. TE* BLOOD SUGAR DIAGNOSTIC STRIPS TEST BLOOD SUGAR 3 TIMES PER * BLOOD-GLUCOSE METER KIT Glucose Meter of Choice - Kit* FUROSEMIDE 20 MG TABLET Take 1 tablet by mouth twice * COMPOUNDED PRESCRIPTION KNEE HIGH COMPRESSION STOCKIN* RANITIDINE 300 MG TABLET Take 1 tablet by mouth daily * ASPIRIN 81 MG CHEWABLE TABLET Take 81 mg by mouth once adela* ACETAMINOPHEN ORAL Take by mouth. 1000 mg bid f* BENZONATATE 100 MG CAPSULE Take 2 capsules by mouth thre* ONDANSETRON 4 MG DISINTEGRATI* Take 1 tablet by mouth every * GABAPENTIN 300 MG CAPSULE Take 1 capsule by mouth three* Problem List As Of Date 06/25/2018 Noted Resolved Uncontrolled type 2 diabetes mellitus with comp*INVALID FOR* More... Hypertension goal BP (blood pressure) < 140/90 *INVALID FOR* More... Other hyperlipidemia [E78.49] INVALID FOR* More... DEPRESSIVE DISORDER NEC [F32.9] INVALID FOR* More... ED (erectile dysfunction) [N52.9] INVALID FOR* Lower urinary tract symptoms (LUTS) [R39.9] INVALID FOR* History of kidney stones [Z87.442] INVALID FOR* Microscopic hematuria [R31.29] INVALID FOR* Diabetic polyneuropathy associated with type 2 *INVALID FOR* More... Acute pain of right shoulder [M25.511] INVALID FOR* More... Nausea [R11.0] INVALID FOR* More... Vomiting [R11.10] INVALID FOR* More... Moderate episode of recurrent major depressive *INVALID FOR* Stage 3 chronic kidney disease [N18.3] INVALID FOR* Right leg weakness [R29.898] INVALID FOR* Gait instability [R26.81] INVALID FOR* Prescriptions ordered this encounter Disp Refills Start End BENZONATATE 100 MG CAPSULE 30 c* 0 06/25/2018 Route: ORAL Sig: Take 2 capsules by mouth three times daily as needed. ONDANSETRON 4 MG DISINTEGRATING TABL* 3 ta* 0 06/25/2018 Route: ORAL Sig: Take 1 tablet by mouth every 8 hours as needed for Nausea/Vomiting. Encounter Status:Closed by LILLIAN LEMUS PA-C on 06/25/18 PROGRESS Observed: 06/11/2018 Status: COMPLETED Source: [place] 4:05 PM [facility] REPOSITORY O ID: [id number] Author: Chelsea Andrade Service: (none) Author Type: Registered Nurse Type: Progress Notes Filed: 06/11/2018 4:46 PM Note Text: PRIMARY CARE COORDINATION FOLLOW-UP NOTE Provider Action/FYI Pt GFR is 18, has appt with Dr Montiel this month to discuss. I faxed her our lab results. Patient identified by name and date of . YES Spoke to patient Summary: BS yesterday was 250 fasting; 145 later in day, 135 at supper. Pt's A1c has decreased from 11.7 to 8.1 over past year. Concerns: His urine alb/cr is over 5000. His GFR is 18. Discussed that he has upcoming appt with Dr. Montiel this month. She will likely repeat labs. Enc to drink plenty of fluids. Important to keep that appt. Sees LETTY Adams for BSs. I checked her last notes and she last saw him in January and was to sched 1 mo F/U and did not. 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 says. Santosh Andrade RN Ambulatory Pocketed Spring Machine Operator Internal Medicine [facility] June 11, 2018 PROGRESS Observed: 06/11/2018 Status: COMPLETED Source: [place] 12:39 PM [facility] REPOSITORY [facility] ID: [id number] Author: Felicita (Pt) Monisha Service: (none) Author Type: Physical Therapist Type: Progress Notes Filed: 06/15/2018 8:31 AM Note Text: Episode Visit Count: 1 Therapist That Will Oversee The Plan Of Care: Felicita Bearden PT Start of Care Date: 06/11/18 Onset Date: 05/19/18 Plan of Care Certification Date: 06/11/18 Patient Identified by Name and Date of : Yes REHABILITATION AND SPORTS THERAPY PHYSICAL THERAPY EVALUATION PLAN OF CARE: Assessment: Williams Burgos presents with the diagnosis of R leg weakness and gait instability. He presents with impairments of posture, LE strength, hamstring flexibility, balance, and gait. He may benefit from skilled therapy services to improve strength, flexibility, balance, and gait without an assistive device if appropriate as he was able to do this prior his multiple hospitalizations in November due to swelling caused by his CKD. Prognosis: Good Good due to: positive past response to therapy;Prognosis may be limited Prognosis may be limited by: multiple co- morbidities;chronic nature of impairments Goals for Episode of Care: created on 06/11/18 through 09/07/18 Patient will report no falls. Improve score on Timed Up and Go Test to 8 seconds to reflect decreased fall risk. Improve score on 30 Second Chair Stand to 19 repetitions to reflect decreased fall risk. Improve performance on 4 Stage Balance Test specifically tandem stance to 12 sec to reflect decreased fall risk. Patient will demonstrate independent and proper use of assisstive device to allow for improved walking quality and safety therefore reducing the risk of falls. Improve flexibility of B hamstrings to at least to 70. Increase strength of B LE hip and knee musculature to 5/5 in order to allow patient to walk without an assistive device. Patient will improve his postural awareness without verbal cues. G CODE REPORTING Based on clinical assessment and the score on the LEFS Assessment Tool, the G code and corresponding severity modifiers are documented below. Evaluation: 06/11/2018 Current Status: Mobility: Walking and Moving Around: G8978 CK 40-59% impaired Goal Status: Mobility: Walking and Moving Around: G8979 CK 40-59% impaired Planned Interventions, Frequency, and Duration: Current Frequency: 1 visit (at a time due to $30 co-pay) Duration: 12 weeks Total Number of Visits Planned: 6 Planned Treatment Interventions: Therapeutic exercise;Neuromuscular re-education;Self-assisted management;Patient/Family/Caregiver Education;General Conditioning PLAN FOR NEXT VISIT: See how HEP is going. Progress LE strengthening like Hip ABD/LAQ/HS curls/SAQ, and resisted DF. Hamstring stretching. F/U visit one at a time due to high copay. Patient demonstrates good understanding of plan of care and treatment. The above goals and plan of care were discussed and agreed upon by patient/family. SUBJECTIVE: Williams Burgos is a 47 year old male seen today for R leg weakness and difficulty walking. In and out of hospital in November. Went into hospital and could walk and then leaves unable to walk. Was in for 2 days, 4 days, and then a week. Went to hospital because of swelling d/t kidneys. Patient walks with a cane and has a walker. When goes to [facility] uses a motorized chart. Had home PT. Dog running and tried to move out of the way and slipped on rug and fell. Functional Limitations: walking in the community;walking;physical activities;throwing;carrying Patient Goals: to get legs better and hang up cane Intake Information: Prescription present Previous Treatment: Home Therapy? Falls Interview: Fall without injury in the last year Pain Score: 0/10 OBJECTIVE MEASURES WITH LEVEL OF FUNCTION: Posture / Alignment Posture: Forward head;Rounded shoulders Gait Gait Observation: Slow gait with cane on R Balance Static Standing Balance: Narrow Base of Support;Semi/Partial Tandem Stance;Tandem Stance Narrow Base of Support: 30 Semi/Partial Tandem Stance: 30 (EO/EC) Tandem Stance: 4 sec UE PROM R UE PROM: WFL L UE PROM: WFL LE Flexibility Flexibility: Hamstring Flexibility R Hamstring Flexibility: 55 L Hamstring Flexibility: 65 LE Strength R Hip Flexion (L2): 4/5 R Hip ABduction: 3+/5 R Hip ADduction: 3+/5 R Knee Extension (L3): 4/5 R Knee Flexion: 4-/5 R Ankle Dorsiflexion (L4): 4-/5 L Hip Flexion (L2): 4/5 L Hip ABduction: 3+/5 L Hip ADduction: 3+/5 L Knee Extension (L3): 4/5 L Knee Flexion: 4-/5 L Ankle Dorsiflexion (L4): 4-/5 30 Second Sit to Stand Test (reps): 9 reps Timed Up and Go (sec): 13 sec Patient wearing compression knee high stockings Education: Education Learning Preferences: Demonstration;Explanation;Performance;Printed Materials Barriers: None Learning/educational needs: Plan of Care;Home exercise program Education Provided: Yes, see treatment interventions for education provided Education Provided To: Patient Education Mode/Type: Demonstration;Explanation/Discussion;Literature/Printed Materials;Performance Response to Education/Teach Back: States/Identifies TREATMENT: Evaluation Therapeutic Exercise: 1: *STS from chair no UE assist 1x10 (little winded) 2: *Seated Hip ADD with green bolster 2x10, 3sec holds 3: *Supine Straight Leg Raise x10, B (cues to keep back flat ) 4: Walking with cane on L side d/t R sided leg weakness 5: Education to move throw rugs to decrease risk of falls Skilled Intervention: Patient was educated in proper exercise technique and purpose for exercises. Reviewed and educated patient on additions/changes for home exercise program as above (*) Skilled judgment was provided in selection of appropriate interventions. Provided written instruction for home exercise program to facilitate proper performance and compliance. Education as noted Billing: [facility]: Evaluation - Moderate Complexity (29988) Therapeutic Exercise (72293): 1:1 time: 15 minutes (1 unit: 8-22 mins) Total time: 43 minutes Felicita Bearden PT CNTHERAPY Observed: 06/11/2018 Status: COMPLETED Source: [place] 12:15 PM [facility] OT/PT/Speech Visit (PTWS) WILLIAMS BURGOS ([id number]) 1970 M Date Time Provider Department 06/11/18 12:15 PM FELICITA BEARDEN (PT) PTWS Date Time Provider Department Center 06/11/2018 12:15 PM [id number], DIANA (PT)PTWS [facility] Reason for Visit: PT Eval [747] Patient Education [91] Primary Visit Diagnosis:Right leg weakness [R29.898] Other Visit Diagnosis:Gait instability [R26.81] Allergies As of Date: 06/11/2018 (No Known Allergies) Date Reviewed: 05/19/2018 Reviewed by: Monik Chinchilla Ma - Fully Assessed Prescriptions as of 06/11/2018 Sig: BUPROPION XL 300 MG 24 HR TAB TAKE 1 TABLET BY MOUTH ONCE D* INSULIN ASPART U-100 100 UNI* Inject insulin three times da* INSULIN GLARGINE (U-100) 100 * Inject 35 Units subcutaneousl* LISINOPRIL 20 MG TABLET Take 1 tablet by mouth once d* AMLODIPINE 5 MG TABLET Take 1 tablet by mouth once d* PEN NEEDLE, DIABETIC 32 GAUGE* Use one needle for each dose,* CPAP Initiate Auto PAP @ 5- 20 cm o* GABAPENTIN 300 MG CAPSULE Take 1 capsule by mouth three* ATORVASTATIN 20 MG TABLET Take 1 tablet by mouth at bed* ATENOLOL 100 MG TABLET Take 1 tablet by mouth once d* LANCETS LANCETS FOR GLUCOSE METER. TE* BLOOD SUGAR DIAGNOSTIC STRIPS TEST BLOOD SUGAR 3 TIMES PER * BLOOD-GLUCOSE METER KIT Glucose Meter of Choice - Kit* X TAMSULOSIN 0.4 MG CAPSULE Take 1 capsule by mouth daily* FUROSEMIDE 20 MG TABLET Take 1 tablet by mouth twice * COMPOUNDED PRESCRIPTION KNEE HIGH COMPRESSION STOCKIN* RANITIDINE 300 MG TABLET Take 1 tablet by mouth daily * ASPIRIN 81 MG CHEWABLE TABLET Take 81 mg by mouth once adela* ACETAMINOPHEN ORAL Take by mouth. 1000 mg bid f* Progress Notes: Felicita Bearden PT 06/15/2018 8:31 AM Signed Episode Visit Count: 1 Therapist That Will Oversee The Plan Of Care: Felicita Bearden PT Start of Care Date: 06/11/18 Onset Date: 05/19/18 Plan of Care Certification Date: 06/11/18 Patient Identified by Name and Date of : Yes REHABILITATION AND SPORTS THERAPY PHYSICAL THERAPY EVALUATION PLAN OF CARE: Assessment: Williams Burgos presents with the diagnosis of R leg weakness and gait instability. He presents with impairments of posture, LE strength, hamstring flexibility, balance, and gait. He may benefit from skilled therapy services to improve strength, flexibility, balance, and gait without an assistive device if appropriate as he was able to do this prior his multiple hospitalizations in November due to swelling caused by his CKD. Prognosis: Good Good due to: positive past response to therapy;Prognosis may be limited Prognosis may be limited by: multiple co- morbidities;chronic nature of impairments Goals for Episode of Care: created on 06/11/18 through 09/07/18 Patient will report no falls. Improve score on Timed Up and Go Test to 8 seconds to reflect decreased fall risk. Improve score on 30 Second Chair Stand to 19 repetitions to reflect decreased fall risk. Improve performance on 4 Stage Balance Test specifically tandem stance to 12 sec to reflect decreased fall risk. Patient will demonstrate independent and proper use of assisstive device to allow for improved walking quality and safety therefore reducing the risk of falls. Improve flexibility of B hamstrings to at least to 70. Increase strength of B LE hip and knee musculature to 5/5 in order to allow patient to walk without an assistive device. Patient will improve his postural awareness without verbal cues. G CODE REPORTING Based on clinical assessment and the score on the LEFS Assessment Tool, the G code and corresponding severity modifiers are documented below. Evaluation: 06/11/2018 Current Status: Mobility: Walking and Moving Around: G8978 CK 40-59% impaired Goal Status: Mobility: Walking and Moving Around: G8979 CK 40-59% impaired Planned Interventions, Frequency, and Duration: Current Frequency: 1 visit (at a time due to $30 co-pay) Duration: 12 weeks Total Number of Visits Planned: 6 Planned Treatment Interventions: Therapeutic exercise;Neuromuscular re-education;Self-assisted management;Patient/Family/Caregiver Education;General Conditioning PLAN FOR NEXT VISIT: See how HEP is going. Progress LE strengthening like Hip ABD/LAQ/HS curls/SAQ, and resisted DF. Hamstring stretching. F/U visit one at a time due to high copay. Patient demonstrates good understanding of plan of care and treatment. The above goals and plan of care were discussed and agreed upon by patient/family. SUBJECTIVE: Williams Burgos is a 47 year old male seen today for R leg weakness and difficulty walking. In and out of hospital in November. Went into hospital and could walk and then leaves unable to walk. Was in for 2 days, 4 days, and then a week. Went to hospital because of swelling d/t kidneys. Patient walks with a cane and has a walker. When goes to [facility] uses a motorized chart. Had home PT. Dog running and tried to move out of the way and slipped on rug and fell. Functional Limitations: walking in the community;walking;physical activities;throwing;carrying Patient Goals: to get legs better and hang up cane Intake Information: Prescription present Previous Treatment: Home Therapy? Falls Interview: Fall without injury in the last year Pain Score: 0/10 OBJECTIVE MEASURES WITH LEVEL OF FUNCTION: Posture / Alignment Posture: Forward head;Rounded shoulders Gait Gait Observation: Slow gait with cane on R Balance Static Standing Balance: Narrow Base of Support;Semi/Partial Tandem Stance;Tandem Stance Narrow Base of Support: 30 Semi/Partial Tandem Stance: 30 (EO/EC) Tandem Stance: 4 sec UE PROM R UE PROM: WFL L UE PROM: WFL LE Flexibility Flexibility: Hamstring Flexibility R Hamstring Flexibility: 55 L Hamstring Flexibility: 65 LE Strength R Hip Flexion (L2): 4/5 R Hip ABduction: 3+/5 R Hip ADduction: 3+/5 R Knee Extension (L3): 4/5 R Knee Flexion: 4-/5 R Ankle Dorsiflexion (L4): 4-/5 L Hip Flexion (L2): 4/5 L Hip ABduction: 3+/5 L Hip ADduction: 3+/5 L Knee Extension (L3): 4/5 L Knee Flexion: 4-/5 L Ankle Dorsiflexion (L4): 4-/5 30 Second Sit to Stand Test (reps): 9 reps Timed Up and Go (sec): 13 sec Patient wearing compression knee high stockings Education: Education Learning Preferences: Demonstration;Explanation;Performance;Printed Materials Barriers: None Learning/educational needs: Plan of Care;Home exercise program Education Provided: Yes, see treatment interventions for education provided Education Provided To: Patient Education Mode/Type: Demonstration;Explanation/Discussion;Literature/Printed Materials;Performance Response to Education/Teach Back: States/Identifies TREATMENT: Evaluation Therapeutic Exercise: 1: *STS from chair no UE assist 1x10 (little winded) 2: *Seated Hip ADD with green bolster 2x10, 3sec holds 3: *Supine Straight Leg Raise x10, B (cues to keep back flat ) 4: Walking with cane on L side d/t R sided leg weakness 5: Education to move throw rugs to decrease risk of falls Skilled Intervention: Patient was educated in proper exercise technique and purpose for exercises. Reviewed and educated patient on additions/changes for home exercise program as above (*) Skilled judgment was provided in selection of appropriate interventions. Provided written instruction for home exercise program to facilitate proper performance and compliance. Education as noted Billing: [facility]: Evaluation - Moderate Complexity (65017) Therapeutic Exercise (95863): 1:1 time: 15 minutes (1 unit: 8-22 mins) Total time: 43 minutes Felicita Bearden PT CNPTOUTREACH Observed: 06/11/2018 Status: COMPLETED Source: [place] 12:00 AM [facility] REPOS[facility] Patient Outreach (INTMWS) WILLIAMS BURGOS ([id number]) 1970 M Date Time Provider Department 06/11/18 CHELSEA SMITH During your visit today, we recorded the following information about you: Chelsea Cottrell RN 06/11/2018 4:46 PM Signed PRIMARY CARE COORDINATION FOLLOW-UP NOTE Provider Action/FYI Pt GFR is 18, has appt with Dr Montiel this month to discuss. I faxed her our lab results. Patient identified by name and date of . YES Spoke to patient Summary: BS yesterday was 250 fasting; 145 later in day, 135 at supper. Pt's A1c has decreased from 11.7 to 8.1 over past year. Concerns: His urine alb/cr is over 5000. His GFR is 18. Discussed that he has upcoming appt with Dr. Montiel this month. She will likely repeat labs. Enc to drink plenty of fluids. Important to keep that appt. Sees LETTY Adams for BSs. I checked her last notes and she last saw him in January and was to sched 1 mo F/U and did not. 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 says. Signature Chelsea Andrade RN Ambulatory Pocketed Spring Machine Operator Internal Medicine [facility] June 11, 2018 Allergies As of Date: 06/11/2018 (No Known Allergies) Date Reviewed: 05/19/2018 Reviewed by: Monik Chinchilla Ma - Fully Assessed Reason for Visit: Pocketed Spring Machine Operator Chronic Care [9500] Prescriptions as of 06/11/2018 Sig: TAMSULOSIN 0.4 MG CAPSULE TAKE 1 CAPSULE BY MOUTH ONCE * BUPROPION XL 300 MG 24 HR TAB TAKE 1 TABLET BY MOUTH ONCE D* INSULIN ASPART U-100 100 UNI* Inject insulin three times da* INSULIN GLARGINE (U-100) 100 * Inject 35 Units subcutaneousl* LISINOPRIL 20 MG TABLET Take 1 tablet by mouth once d* AMLODIPINE 5 MG TABLET Take 1 tablet by mouth once d* PEN NEEDLE, DIABETIC 32 GAUGE* Use one needle for each dose,* CPAP Initiate Auto PAP @ 5- 20 cm o* GABAPENTIN 300 MG CAPSULE Take 1 capsule by mouth three* ATORVASTATIN 20 MG TABLET Take 1 tablet by mouth at bed* ATENOLOL 100 MG TABLET Take 1 tablet by mouth once d* LANCETS LANCETS FOR GLUCOSE METER. TE* BLOOD SUGAR DIAGNOSTIC STRIPS TEST BLOOD SUGAR 3 TIMES PER * BLOOD-GLUCOSE METER KIT Glucose Meter of Choice - Kit* X TAMSULOSIN 0.4 MG CAPSULE Take 1 capsule by mouth daily* FUROSEMIDE 20 MG TABLET Take 1 tablet by mouth twice * COMPOUNDED PRESCRIPTION KNEE HIGH COMPRESSION STOCKIN* RANITIDINE 300 MG TABLET Take 1 tablet by mouth daily * ASPIRIN 81 MG CHEWABLE TABLET Take 81 mg by mouth once adela* ACETAMINOPHEN ORAL Take by mouth. 1000 mg bid f* Problem List As Of Date 06/11/2018 Noted Resolved Uncontrolled type 2 diabetes mellitus with comp*INVALID FOR* More... Hypertension goal BP (blood pressure) < 140/90 *INVALID FOR* More... Other hyperlipidemia [E78.49] INVALID FOR* More... DEPRESSIVE DISORDER NEC [F32.9] INVALID FOR* More... ED (erectile dysfunction) [N52.9] INVALID FOR* Lower urinary tract symptoms (LUTS) [R39.9] INVALID FOR* History of kidney stones [Z87.442] INVALID FOR* Microscopic hematuria [R31.29] INVALID FOR* Diabetic polyneuropathy associated with type 2 *INVALID FOR* More... Acute pain of right shoulder [M25.511] INVALID FOR* More... Nausea [R11.0] INVALID FOR* More... Vomiting [R11.10] INVALID FOR* More... Moderate episode of recurrent major depressive *INVALID FOR* Stage 3 chronic kidney disease [N18.3] INVALID FOR* Encounter Status:Closed by CHELSEA ANDRADE on 06/11/18 PROGRESS Observed: 06/02/2018 Status: COMPLETED Source: [place] 9:32 AM [facility] HNO ID: [id number] Author: Colleen Montalvo Cma Service: (none) Author Type: (none) Type: Progress Notes Filed: 06/02/2018 9:32 AM Note Text: Reminder mailed to patient. BP hedy. For 06/09 PROGRESS Observed: 05/29/2018 Status: COMPLETED Source: [place] 2:11 PM [facility] HNO ID: [id number] Author: Colleen Green Synchronous Motor Assembler Service: (none) Author Type: (none) Type: Progress Notes Filed: 06/02/2018 9:32 AM Note Text: [facility] CARE GAP REGISTRY DOCUMENTATION (OUTSIDE TEAMLET) Provider Action/FYI: Please file future labs PSR Action/FYI: Pend labs Patient identified by name and date of . Last BP/Labs: Blood Pressure: Last 3 Encounter BP Readings: Date: BP: 05/19/2018 154/90 01/15/2018 134/70 12/16/2017 124/72 Lipids: Cholesterol, Total (mg/dL) Date Value 04/26/2016 305 Total Cholesterol, Nonfasting (mg/dL) Date Value 05/19/2018 196 HDL Cholesterol (mg/dL) Date Value 04/26/2016 44 HDL Cholesterol, Nonfasting (mg/dL) Date Value 05/19/2018 38 LDL Cholesterol (mg/dL) Date Value 04/26/2016 213 LDL Chol, [place] (mg/dL) Date Value 06/18/2003 181 LDL Cholesterol, Nonfasting (mg/dL) Date Value 05/19/2018 131 Triglyceride (mg/dL) Date Value 04/26/2016 238 Triglycerides, Nonfasting (mg/dL) Date Value 05/19/2018 137 HGB A1C: Lab Results Component Value Date HBA1C 8.1 05/19/2018 HBA1C 10.9 11/19/2017 HBA1C 11.7 05/03/2017 HBA1C 12.1 09/07/2016 TSH: No results found for: TSH) ? Patient has the following care gap registry disease diagnosis:DM ? Elevated BP at last appt. ? Patient has the following open care gaps: Health Maintenance Due: BP CONTROLLED (<130/80) due on 1986 ? Last office visit: 05/19/2018 ? Future office visit:08/18/2018 ? Future labs due in August for DM Colleen Ricky Synchronous Motor Assembler CNPTOUTREACH Observed: 05/29/2018 Status: COMPLETED Source: [place] 12:00 AM [facility] REPOS[facility] Patient Outreach (INTMWS) WILLIAMS BURGOS ([id number]) 1970 M Date Time Provider Department 05/29/18 COLLEEN MONTALVO ([facility]) INTMWS During your visit today, we recorded the following information about you: Colleen Montalvo [facility] 06/02/2018 9:32 AM Signed PHMA CARE GAP REGISTRY DOCUMENTATION (OUTSIDE TEAMLET) Provider Action/FYI: Please file future labs PSR Action/FYI: Pend labs Patient identified by name and date of . Last BP/Labs: Blood Pressure: Last 3 Encounter BP Readings: Date: BP: 05/19/2018 154/90 01/15/2018 134/70 12/16/2017 124/72 Lipids: Cholesterol, Total (mg/dL) Date Value 04/26/2016 305 Total Cholesterol, Nonfasting (mg/dL) Date Value 05/19/2018 196 HDL Cholesterol (mg/dL) Date Value 04/26/2016 44 HDL Cholesterol, Nonfasting (mg/dL) Date Value 05/19/2018 38 LDL Cholesterol (mg/dL) Date Value 04/26/2016 213 LDL Chol, [place] (mg/dL) Date Value 06/18/2003 181 LDL Cholesterol, Nonfasting (mg/dL) Date Value 05/19/2018 131 Triglyceride (mg/dL) Date Value 04/26/2016 238 Triglycerides, Nonfasting (mg/dL) Date Value 05/19/2018 137 HGB A1C: Lab Results Component Value Date HBA1C 8.1 05/19/2018 HBA1C 10.9 11/19/2017 HBA1C 11.7 05/03/2017 HBA1C 12.1 09/07/2016 TSH: No results found for: TSH) ? Patient has the following care gap registry disease diagnosis:DM ? Elevated BP at last appt. ? Patient has the following open care gaps: Health Maintenance Due: BP CONTROLLED (<130/80) due on 1986 ? Last office visit: 05/19/2018 ? Future office visit:08/18/2018 ? Future labs due in August for DM Colleen Montalvo Synchronous Motor Assembler 06/02/2018 9:32 AM Signed Reminder mailed to patient. BP hedy. For 06/09 Allergies As of Date: 05/29/2018 (No Known Allergies) Date Reviewed: 05/19/2018 Reviewed by: Monik Chinchilla Ma - Fully Assessed Reason for Visit: PHMA/Care Gap Outreach [3605] Primary Visit Diagnosis:Uncontrolled type 2 diabetes mellitus with complication, with long-term current use of insulin (HCC) [E11.8, E11.65, Z79.4] Order(s):HGB A1C [[id number]] Order #: [id number] FUTURE Prescriptions as of 05/29/2018 Sig: BUPROPION XL 300 MG 24 HR TAB TAKE 1 TABLET BY MOUTH ONCE D* INSULIN ASPART U-100 100 UNI* Inject insulin three times da* INSULIN GLARGINE (U-100) 100 * Inject 35 Units subcutaneousl* LISINOPRIL 20 MG TABLET Take 1 tablet by mouth once d* AMLODIPINE 5 MG TABLET Take 1 tablet by mouth once d* PEN NEEDLE, DIABETIC 32 GAUGE* Use one needle for each dose,* CPAP Initiate Auto PAP @ 5- 20 cm o* GABAPENTIN 300 MG CAPSULE Take 1 capsule by mouth three* ATORVASTATIN 20 MG TABLET Take 1 tablet by mouth at bed* ATENOLOL 100 MG TABLET Take 1 tablet by mouth once d* TAMSULOSIN 0.4 MG CAPSULE Take 1 capsule by mouth daily* LANCETS LANCETS FOR GLUCOSE METER. TE* BLOOD SUGAR DIAGNOSTIC STRIPS TEST BLOOD SUGAR 3 TIMES PER * BLOOD-GLUCOSE METER KIT Glucose Meter of Choice - Kit* FUROSEMIDE 20 MG TABLET Take 1 tablet by mouth twice * COMPOUNDED PRESCRIPTION KNEE HIGH COMPRESSION STOCKIN* RANITIDINE 300 MG TABLET Take 1 tablet by mouth daily * ASPIRIN 81 MG CHEWABLE TABLET Take 81 mg by mouth once adela* ACETAMINOPHEN ORAL Take by mouth. 1000 mg bid f* Problem List As Of Date 05/29/2018 Noted Resolved Uncontrolled type 2 diabetes mellitus with comp*INVALID FOR* More... Hypertension goal BP (blood pressure) < 140/90 *INVALID FOR* More... Other hyperlipidemia [E78.4] INVALID FOR* More... DEPRESSIVE DISORDER NEC [F32.9] INVALID FOR* More... ED (erectile dysfunction) [N52.9] INVALID FOR* Lower urinary tract symptoms (LUTS) [R39.9] INVALID FOR* History of kidney stones [Z87.442] INVALID FOR* Microscopic hematuria [R31.29] INVALID FOR* Diabetic polyneuropathy associated with type 2 *INVALID FOR* More... Acute pain of right shoulder [M25.511] INVALID FOR* More... Nausea [R11.0] INVALID FOR* More... Vomiting [R11.10] INVALID FOR* More... Moderate episode of recurrent major depressive *INVALID FOR* Stage 3 chronic kidney disease [N18.3] INVALID FOR* Encounter Status:Closed by COLLEEN MONTALVO CMA on 06/02/18 ALBUMIN/CREAT RATIO Collected: 05/19/2018 Status: F Source: [place] 12:00 PM [facility] RE[facility] TYPE CODE TESTS RESULT OUT OF REFERENCE UNITS RANGE LAB UCRR 20-300 mg/dL Creatinine,Ur 64.9 ine,Ran LAB UALBR 0.0-23.0 mg/L High Albumin Urine 3586.7 Random LAB UALBCR 0-30 mg/g High Albumin/Creat 5527 Ratio Result Comment: 30 to 300 mg/g indicates an increased risk for diabetic nephropathy. Greater than 300 mg/g is consistent with clinical nephropathy. (Am J Kidney Disease 1995, 25:107) Performed By: #### UACR #### [facility] [address], [place] [address] CBC AND DIFFERENTIAL Collected: 05/19/2018 Status: F Source: [place] 11:57 AM [facility] REPOS[facility] TYPE CODE TESTS RESULT OUT OF REFERENCE UNITS RANGE LAB WBC 3.70-11.00 k/uL WBC 6.33 LAB RBC 4.20-6.00 m/uL Low RBC 3.94 LAB HGB 13.0-17.0 g/dL Low Hemoglobin 11.6 LAB HCT 39.0-51.0 % Low Hematocrit 33.9 LAB MCV 80.0-100.0 fL MCV 86.0 LAB MCH 26.0-34.0 pG MCH 29.4 LAB MCHC 30.5-36.0 g/dL MCHC 34.2 LAB RDWCV 11.5-15.0 % RDW-CV 11.8 LAB PLTCT 150-400 k/uL Platelet Count 233 LAB MPV 9.0-12.7 fL MPV 9.4 LAB ANEUT % Neut% 70.1 LAB AANEUT 1.45-7.50 k/uL Abs Neut 4.42 LAB ALYMP % Lymph% 22.4 LAB AALYMP 1.00-4.00 k/uL Abs Lymph 1.42 LAB AMONO % [place]% 6.2 LAB AAMONO <0.87 k/uL Abs [place] 0.39 LAB AEOS % Eosin% 0.8 LAB AAEOS <0.46 k/uL Abs Eosin 0.05 LAB ABASO % Baso% 0.5 LAB AABASO <0.11 k/uL Abs Baso 0.03 LAB AUNRBC 0 /100 WBC NRBCs 0.0 LAB ABNRBC <0.01 k/uL Absolute nRBC <0.01 LAB DTYP DTYPE Auto Diff Performed By: #### CBCDIF, HBA1C, CMP, LIPNF #### [facility] [address], [place] [address] HEMOGLOBIN A1C Collected: 05/19/2018 Status: F Source: [place] 11:57 [facility] REPOSITORY TYPE CODE TESTS RESULT OUT OF REFERENCE UNITS RANGE LAB HGBA1C 4.3-5.6 % High Hemoglobin A1c 8.1 LAB HBA0 mg/dL Est. Average Glucose 186 Result Comment: eAG: (Estimated average glucose) is a calculated value from HgbA1c and is medical collections representative of the average blood glucose level in the last 2-3 month period. Performed By: #### CBCDIF, HBA1C, CMP, LIPNF #### [facility] [address], [place] [address] COMP METABOLIC PANEL Collected: 05/19/2018 Status: F Source: [place] 11:57 AM [facility] TYPE CODE TESTS RESULT OUT OF REFERENCE UNITS RANGE LAB TP 6.3-8.0 g/dL Low Protein, Total 6.2 LAB ALB 3.9-4.9 g/dL Low Albumin 3.3 LAB CA 8.5-10.2 mg/dL Calcium, Total 8.9 LAB TBIL 0.2-1.3 mg/dL Bilirubin, Total 0.3 LAB ALKP 36-108 U/L Alkaline High Phosphatase 144 LAB AST 14-40 U/L AST 20 LAB GLU 74-99 mg/dL Glucose High 259 Result Comment: The [place] [employer] (ADA) provides guidance for cutoff values for fasting glucose and random glucose. The ADA defines fasting as no caloric intake for at least 8 hours. Fas ting plasma glucose results between 100 to 125 mg/dL indicate increased risk for diabetes (prediabetes). Fasting plasma glucose results greater than or equal to 126 mg/dL meet the criteria for diagnosis of diabetes. In the absence of unequivocal hyperglycemia, results should be confirmed by repeat testing. In a patient with classic symptoms of hyperglycemia or hyperglycemic crisis, random plasma glucose results greater than or equal to 200 mg/dL meet the criteria for diagnosis of diabetes. Reference: Standards of Medical Care in Diabetes 2016, [place] [employer]. Diabetes Care. 2016.39(Suppl 1). LAB BUN 9-24 mg/dL BUN High 48 LAB CRET 0.73-1.22 mg/dL Creatinine High 3.58 LAB NA 136-144 mmol/L Sodium 138 LAB K 3.7-5.1 mmol/L Potassium 4.9 LAB CL 97-105 mmol/L Chloride 102 LAB CO2 22-30 mmol/L CO2 25 LAB AGAP 9-18 mmol/L Anion Gap 11 LAB ALT 10-54 U/L ALT 26 LAB GFRAA eGFR- Amer. 22 LAB GFRNAA . eGFR-All Other Races 18 Result Comment: eGFR (Estimated GFR) Units of measure: mL/min/1.73 meters squared eGFR is derived from the reexpressed MDRD Study equation using the following parameters: serum creatinine, age, gender and race. The creatinine assay has been calibrated to be traceable to IDMS. An eGFR <60 mL/min/1.73m2 for >3 months is consistent with chronic kidney disease. Refer to KDOQI guidelines for clinical interpretation. In patients with unstable renal function, e.g. those with acute kidney injury, the eGFR may not accurately reflect actual GFR. Performed By: #### CBCDIF, HBA1C, CMP, LIPNF #### [facility] [address] [place], [place] [address] LIPID PANEL, NONFAST Collected: 05/19/2018 Status: F Source: [place] 11:57 AM [facility] REPOSITORY TYPE CODE TESTS RESULT OUT OF REFERENCE UNITS RANGE LAB CHOLNF <200 mg/dL Total Cholesterol NF 196 Result Comment: <200 mg/dL, Desirable 200-239 mg/dL, Borderline high >239 mg/dL, High LAB TRIGNF <150 mg/dL Triglycerides, NF 137 Result Comment: <150 mg/dL, Normal 150-199 mg/dL, Borderline high 200-499 mg/dL, High >499 mg/dL, Very high LAB HDLNF >39 mg/dL HDL Cholesterol, NF Low 38 Result Comment: 40-59 mg/dL, Acceptable >59 mg/dL, High: Negative risk factor for coronary heart disease <40 mg/dL, Low: Positive risk factor for coronary heart disease LAB LDLNF <100 mg/dL LDL Cholesterol, High NF 131 Result Comment: <100 mg/dL, Optimal 100-129 mg/dL, Near optimal/above optimal 130-159 mg/dL, Borderline high 160-189 mg/dL, High >189 mg/dL, Very high Secondary prevention optimal LDL Cholesterol levels are recommended to be < 70 mg/dL LAB NOHDLN <130 mg/dL High Non HDL Chol, 158 NF Result Comment: <130 mg/dL, Optimal 130-159 mg/dL, Near optimal/above optimal 160-189 mg/dL, Borderline high 190-219 mg/dL, High >219 mg/dL, Very high Secondary prevention optimal non HDL Cholesterol levels are recommended to be < 100 mg/dL LAB VLDLNF <30 mg/dL VLDL Cholesterol, NF 27 LAB TCHDLN <5.10 mg/dL T Chol/HDL Ratio High NF 5.16 LAB LDLHDN <2.54 mg/dL LDL/HDL Ratio, NF High 3.45 Result Comment: Reference: 1. National Cholesterol Education Program ATP III Guideline At-A-Glance Quick Desk Reference: National Heart, Lung, and Blood [place]. National Institutes of Health. 2001: NIH Publication No. 01-3305. 2. An International Atherosclerosis Society position paper: global recommendations for the management of dyslipidemia: executive summary, Atherosclerosis. 2014: 232(2):410-413. Performed By: #### CBCDIF, HBA1C, CMP, LIPNF #### [facility] [address] [place], [place] [address] PROGRESS Observed: 05/19/2018 Status: COMPLETED Source: [place] 10:50 AM [facility] [place] REPOSIT[facility] HNO ID: [id number] Author: Irma (Eugenio) Jasper Service: (none) Author Type: Nurse Practitioner Type: Progress Notes Filed: 05/19/2018 3:02 PM Note Text: CC: Patient presents with: Recheck: 3 month follow up HPI Williams Burgos is a 47 year old male who presents today with his step-daughter for 3 month follow up. HTN: Mr. Burgos indicates that he is feeling well and denies any symptoms referable to elevated blood pressure. Specifically denies headache, chest pain, palpitations, dyspnea and peripheral edema. Patient denies any side effects of his medication(s) and is compliant with their regimen. He does check BP's away from this office with average BP's in the 150/90s range. Williams works out regularly 3-5 times per week with walking. He watches his diet for sodium most of the time but not fat and cholesterol. DIABETES MELLITUS: Mr. Burgos was last seen 3 months ago. Since our last visit he denies excessive thirst or increased frequency of urination, chest pain or dyspnea , numbness, tingling or pain in extremities, new or unusual visual symptoms, low sugar/hypoglycemic reactions, weight loss/gain, lightheadedness/dizziness and bowel changes/loose stools. Patient admits to have low sugar/hypoglycemic reactions x1 episode a few weeks ago with a reading of 82. Follows a diabetic diet generally not very much. He is compliant with medication(s) and is tolerating med(s) without any side effects. He reports checking his glucose on a three times a day schedule with sugars in the fasting 200-300 range. Patient states he didn't know he needed labs done- not sure how his control has been. Patient notes that he has only been taking 25 units of Lantus at bedtime since hospital admission and takes 10units of novolog with meals. Patient's last HgA1C was Hemoglobin A1C (%) Date Value 11/19/2017 10.9 05/03/2017 11.7 09/07/2016 12.1 ) Last Ophthalmology exam was within the past 6 months Last Podiatry exam was 3 months ago, has upcoming appointment Influenza vaccine in the fall- states he will get done today. Depression: Some days are better than others. No sleep disturbances. No major changes appetite. No SI/HI. Denies panic attacks. Hyperlipidemia. Mr. Burgos reports doing well on current therapy of atorvastatin (Lipitor) 20 mg. Denies side effects of muscle weakness or achiness. GERD: Well controlled with Zantac. REVIEW OF SYSTEMS General: no fevers, no chills, no night sweats, no recurrent infections, no change in appetite, no change in energy and no significant changes in weight HEENT: no frequent or significant headaches, no changes in hearing, no visual changes, no nose bleeds, no sinus or nasal problems Neck: no lumps, no pain and no swelling Respiratory: no cough, no wheezing, no shortness of breath, no hemoptysis Cardiovascular: no chest pain, no chest pressure, no palpitations and no swelling GI: No nausea, vomiting, or diarrhea : No history of dysuria, frequency or incontinence on Flomax Hematologic/Lymph: Negative for prolonged bleeding, bruising easily or swollen nodes Endocrine: no fatigue, no weight gain, no weight loss, no hair loss, no dry skin, no cold intolerance, no heat intolerance, no neck pain/pressure, no polyuria, no polyphagia and no polydipsia Neurologic: No headache, weakness, numbness, tingling, neck stiffness, tremor, vertigo, dizziness, memory loss, syncope. Musculoskeletal: notes ongoing right leg weakness since hospital admission in December, was doing PT in January. Would like to do something for strength since he is using a cane. PAST MEDICAL HISTORY Diagnosis Date - Bronchitis - Depression - Detached retina - DM type 2, goal HbA1c < 7% (HCC) - GERD (gastroesophageal reflux disease) - Hyperlipidemia - Kidney stones - PNA (pneumonia) - Unspecified essential hypertension - Vitamin D deficiency PAST SURGICAL HISTORY Procedure Laterality Date - CYSTOSCOPY,REMV CALCULUS,COMPLIC 1999 - PAST SURGICAL HISTORY OF Left 2012 AND 2014 removal eye fluid with instillation oil - REMOVAL GALLBLADDER 1999 Cholecystectomy ALLERGIES Patient has no known allergies. MEDICATIONS amLODIPine (NORVASC) 5 mg tablet Take 1 tablet by mouth once daily. buPROPion XL (WELLBUTRIN XL) 300 mg 24 hr tablet Take 1 tablet by mouth once daily. gabapentin (NEURONTIN) 300 mg capsule Take 1 capsule by mouth three times daily for 30 days. atorvastatin (LIPITOR) 20 mg tablet Take 1 tablet by mouth at bedtime as needed. atenolol (TENORMIN) 100 mg tablet Take 1 tablet by mouth once daily. tamsulosin ER (FLOMAX) 0.4 mg cp24 Take 1 capsule by mouth daily at bedtime. furosemide (LASIX) 20 mg tablet Take 1 tablet by mouth twice daily. insulin glargine (LANTUS SOLOSTAR U-100 INSULIN) 100 unit/mL (3 mL) inpn Inject 60 Units subcutaneously every evening. insulin aspart U-100 (NOVOLOG FLEXPEN U-100 INSULIN) 100 unit/mL inpn Inject insulin three times daily at first bite of food. Take 15 units with each meal Ranitidine HCl (ZANTAC) 300 mg tablet Take 1 tablet by mouth daily before dinner. hydroCHLOROthiazide (HYDRODIURIL, ESIDRIX) 25 mg tablet Take 1 tablet by mouth once daily. lisinopril (ZESTRIL, PRINIVIL) 40 mg tablet Take 1 tablet by mouth once daily. Indications: hypertension aspirin 81 mg chewable tablet Take 81 mg by mouth once daily. Insulin [place], Disposable, (BD ULTRA-FINE SANDRA PEN NEEDLE) 32 gauge x 5/32 ndle Use one needle for each dose, 3 times daily. E11.9 CPAP Initiate Auto PAP @ 5-20 cm of water with humidification. Mask (per patient preference) optional chin strap (if indicated) , filters, tubing, humidifier and lifetime supplies. Lancets lancets LANCETS FOR GLUCOSE METER. TEST DIRECTED blood sugar diagnostic (BLOOD GLUCOSE TEST) test strip TEST BLOOD SUGAR 3 TIMES PER DAY. DX: 250.E11.9. INSULIN DEP: yes Blood-Glucose Meter monitoring kit Glucose Meter of Choice - Kit - Dx: Type 2 DM - Controlled E11.9 >Compression Knee Highs 30-40 mm KNEE HIGH COMPRESSION STOCKINGS, 30-40 MM, I DX: EDEMA ACETAMINOPHEN ORAL Take by mouth. 1000 mg bid for pain / aches FAMILY HISTORY Problem Relation Age of Onset - Colon Cancer Father 53 - Diabetes Brother 52 - Diabetes Sister - Diabetes Mother 78 - Cancer Brother 49 lung - Diabetes Son Social History Substance Use Topics - Smoking status: Never Smoker - Smokeless tobacco: Current User Types: Snuff Comment: snuff x 33 years - Alcohol use Yes Comment: rarely PHYSICAL EXAM BP 158/92 Pulse 72 Temp 36.7 ?C (98.1 ?F) (Temporal Artery) Resp 16 Wt 99.8 kg (220 lb) SpO2 99% BMI 33.46 kg/m? General Appearance: in no acute distress, alert Pysch: mood and affect flat and restricted Skin: Skin color dusky, Head: normocephalic, atraumatic Eyes: conjunctiva pink and moist, no icterus, sclera white, non-injected Lungs: Lungs clear to auscultation. No wheezing, rhonchi, rales Heart: RRR without murmur, gallop, or rubs. No ectopy Bilateral Lower Extremities: No edema BP CONTROLLED (<130/80) due on 1986 LDL CHOLESTEROL due on 04/26/2017 HEMOGLOBIN/HEMATOCRIT due on 09/07/2017 HBA1C due on 02/19/2018 SERUM CREATININE due on 05/03/2018 URINE ALBUMIN:CREATININE RATIO due on 05/03/2018 INFLUENZA(1) due on 05/10/2018 STATIN MED ADHERENCE due on 06/09/2018 DIABETES MED ADHERENCE due on 06/09/2018 TOM/ARB MED ADHERENCE due on 06/09/2018 DIABETIC FOOT EXAM due on 11/12/2018 ANNUAL PCP TEAM CHRONIC DISEASE VISIT due on 01/15/2019 DILATED RETINAL EXAM due on 01/22/2019 DTAP,TDAP,TD(2 - Td) due on 05/24/2025 ONE PNEUMOVAX PRIOR TO AGE 65 Completed ASSESSMENT/PLAN: 1. Uncontrolled type 2 diabetes mellitus with complication, with long-term current use of insulin (HCC) - ICD9: 250.82, V58.67, ICD10: E11.8, E11.65, Z79.4 (primary diagnosis) poorly controlled - Increase Lantus 35 units PM - Check HgA1C, Urine for albumin/creatinine ratio, CMP and CBC - Blood glucose monitoring on a three to four times a day schedule - Encouraged regular aerobic exercise and weight loss - Daily Asprin therapy recommended - Follow up in 3 months, sooner should any other issues arise. - BP goal of <130/80 - INSULIN GLARGINE (U-100) 100 UNIT/ML (3 ML) SUBCUTANEOUS PEN 2. Hypertension goal BP (blood pressure) < 140/90 - ICD9: 401.9, ICD10: I10 - poor control - Add lisinopril (Zestril/Prinivil) - Encouraged dietary sodium restriction/DASH diet - Recommended regular aerobic exercise. - Recommend home blood pressure monitoring, to bring results in on next visit - Follow up in 1 month for BP recheck. - Recheck in 3 months, sooner should new symptoms or problems arise. - Goal of BP <130/80 3. Other hyperlipidemia - ICD9: 272.4, ICD10: E78.4 - to be determined upon return of lab results - Continue current medication. - Encouraged following a low fat, low cholesterol diet. - Discussed the benefits of regular aerobic exercise and weight loss. - Follow up in 12 weeks. - LIPID PANEL, NONFASTING 4. Right leg weakness - ICD9: 729.89, ICD10: R29.898 - CONSULT TO PHYSICAL THERAPY 5. Gait instability - ICD9: 781.2, ICD10: R26.81 - CONSULT TO PHYSICAL THERAPY 6. Need for vaccination - ICD9: V05.9, ICD10: Z23 - ADMIN OF INFLUENZA VACCINE - INFLUENZA VACCINE QUADRIVALENT AGE 3 YRS PLUS + IM Irma Villa APRN.EUGENIO Prescription instructions reviewed with patient as applicable. Potential red flag symptoms discussed with the patient. Reviewed appropriate action plan to take if red flag symptoms occur. Patient agreeable to treatment plan. CNOV Observed: 05/19/2018 Status: COMPLETED Source: [place] 10:40 AM [facility] REPOS[facility] Office Visit (INTMWS) WILLIAMS BURGOS ([id number]) 1970 M Date Time Provider Department 05/19/18 10:40 AM IRMA VILLA ([facility]) IN[facility] During your visit today, we recorded the following information about you: Temperature Pulse Respiration Blood pressure 98.1 degrees 72/minute 16/minute 154/90 Weight 99.8 kg Irma Villa APRN.CNP 05/19/2018 3:02 PM Signed CC: Patient presents with: Recheck: 3 month follow up HPI Williams Burgos is a 47 year old male who presents today with his step-daughter for 3 month follow up. HTN: Mr. Burgos indicates that he is feeling well and denies any symptoms referable to elevated blood pressure. Specifically denies headache, chest pain, palpitations, dyspnea and peripheral edema. Patient denies any side effects of his medication(s) and is compliant with their regimen. He does check BP's away from this office with average BP's in the 150/90s range. Williams works out regularly 3-5 times per week with walking. He watches his diet for sodium most of the time but not fat and cholesterol. DIABETES MELLITUS: Mr. Burgos was last seen 3 months ago. Since our last visit he denies excessive thirst or increased frequency of urination, chest pain or dyspnea , numbness, tingling or pain in extremities, new or unusual visual symptoms, low sugar/hypoglycemic reactions, weight loss/gain, lightheadedness/dizziness and bowel changes/loose stools. Patient admits to have low sugar/hypoglycemic reactions x1 episode a few weeks ago with a reading of 82. Follows a diabetic diet generally not very much. He is compliant with medication(s) and is tolerating med(s) without any side effects. He reports checking his glucose on a three times a day schedule with sugars in the fasting 200-300 range. Patient states he didn't know he needed labs done- not sure how his control has been. Patient notes that he has only been taking 25 units of Lantus at bedtime since hospital admission and takes 10units of novolog with meals. Patient's last HgA1C was Hemoglobin A1C (%) Date Value 11/19/2017 10.9 05/03/2017 11.7 09/07/2016 12.1 ) Last Ophthalmology exam was within the past 6 months Last Podiatry exam was 3 months ago, has upcoming appointment Influenza vaccine in the fall- states he will get done today. Depression: Some days are better than others. No sleep disturbances. No major changes appetite. No SI/HI. Denies panic attacks. Hyperlipidemia. Mr. Burgos reports doing well on current therapy of atorvastatin (Lipitor) 20 mg. Denies side effects of muscle weakness or achiness. GERD: Well controlled with Zantac. REVIEW OF SYSTEMS General: no fevers, no chills, no night sweats, no recurrent infections, no change in appetite, no change in energy and no significant changes in weight HEENT: no frequent or significant headaches, no changes in hearing, no visual changes, no nose bleeds, no sinus or nasal problems Neck: no lumps, no pain and no swelling Respiratory: no cough, no wheezing, no shortness of breath, no hemoptysis Cardiovascular: no chest pain, no chest pressure, no palpitations and no swelling GI: No nausea, vomiting, or diarrhea : No history of dysuria, frequency or incontinence on Flomax Hematologic/Lymph: Negative for prolonged bleeding, bruising easily or swollen nodes Endocrine: no fatigue, no weight gain, no weight loss, no hair loss, no dry skin, no cold intolerance, no heat intolerance, no neck pain/pressure, no polyuria, no polyphagia and no polydipsia Neurologic: No headache, weakness, numbness, tingling, neck stiffness, tremor, vertigo, dizziness, memory loss, syncope. Musculoskeletal: notes ongoing right leg weakness since hospital admission in December, was doing PT in January. Would like to do something for strength since he is using a cane. PAST MEDICAL HISTORY Diagnosis Date - Bronchitis - Depression - Detached retina - DM type 2, goal HbA1c < 7% ([facility]) - GERD (gastroesophageal reflux disease) - Hyperlipidemia - Kidney stones - PNA (pneumonia) - Unspecified essential hypertension - Vitamin D deficiency PAST SURGICAL HISTORY Procedure Laterality Date - CYSTOSCOPY,REMV CALCULUS,COMPLIC 1999 - PAST SURGICAL HISTORY OF Left 2012 AND 2014 removal eye fluid with instillation oil - REMOVAL GALLBLADDER 1998 Cholecystectomy ALLERGIES Patient has no known allergies. MEDICATIONS amLODIPine (NORVASC) 5 mg tablet Take 1 tablet by mouth once daily. buPROPion XL (WELLBUTRIN XL) 300 mg 24 hr tablet Take 1 tablet by mouth once daily. gabapentin (NEURONTIN) 300 mg capsule Take 1 capsule by mouth three times daily for 30 days. atorvastatin (LIPITOR) 20 mg tablet Take 1 tablet by mouth at bedtime as needed. atenolol (TENORMIN) 100 mg tablet Take 1 tablet by mouth once daily. tamsulosin ER (FLOMAX) 0.4 mg cp24 Take 1 capsule by mouth daily at bedtime. furosemide (LASIX) 20 mg tablet Take 1 tablet by mouth twice daily. insulin glargine (LANTUS SOLOSTAR U-100 INSULIN) 100 unit/mL (3 mL) inpn Inject 60 Units subcutaneously every evening. insulin aspart U-100 (NOVOLOG FLEXPEN U-100 INSULIN) 100 unit/mL inpn Inject insulin three times daily at first bite of food. Take 15 units with each meal Ranitidine HCl (ZANTAC) 300 mg tablet Take 1 tablet by mouth daily before dinner. hydroCHLOROthiazide (HYDRODIURIL, ESIDRIX) 25 mg tablet Take 1 tablet by mouth once daily. lisinopril (ZESTRIL, PRINIVIL) 40 mg tablet Take 1 tablet by mouth once daily. Indications: hypertension aspirin 81 mg chewable tablet Take 81 mg by mouth once daily. Insulin [place], Disposable, (BD ULTRA-FINE SANDRA PEN NEEDLE) 32 gauge x /32 ndle Use one needle for each dose, 3 times daily. E11.9 CPAP Initiate Auto PAP @ 5-20 cm of water with humidification. Mask (per patient preference) optional chin strap (if indicated) , filters, tubing, humidifier and lifetime supplies. Lancets lancets LANCETS FOR GLUCOSE METER. TEST DIRECTED blood sugar diagnostic (BLOOD GLUCOSE TEST) test strip TEST BLOOD SUGAR 3 TIMES PER DAY. DX: 250.E11.9. INSULIN DEP: yes Blood-Glucose Meter monitoring kit Glucose Meter of Choice - Kit - Dx: Type 2 DM - Controlled E11.9 >Compression Knee Highs 30-40 mm KNEE HIGH COMPRESSION STOCKINGS, 30-40 MM, I DX: EDEMA ACETAMINOPHEN ORAL Take by mouth. 1000 mg bid for pain / aches FAMILY HISTORY Problem Relation Age of Onset - Colon Cancer Father 53 - Diabetes Brother 52 - Diabetes Sister - Diabetes Mother 78 - Cancer Brother 49 lung - Diabetes Son Social History Substance Use Topics - Smoking status: Never Smoker - Smokeless tobacco: Current User Types: Snuff Comment: snuff x 33 years - Alcohol use Yes Comment: rarely PHYSICAL EXAM BP 158/92 Pulse 72 Temp 36.7 ?C (98.1 ?F) (Temporal Artery) Resp 16 Wt 99.8 kg (220 lb) SpO2 99% BMI 33.46 kg/m? General Appearance: in no acute distress, alert Pysch: mood and affect flat and restricted Skin: Skin color dusky, Head: normocephalic, atraumatic Eyes: conjunctiva pink and moist, no icterus, sclera white, non-injected Lungs: Lungs clear to auscultation. No wheezing, rhonchi, rales Heart: RRR without murmur, gallop, or rubs. No ectopy Bilateral Lower Extremities: No edema BP CONTROLLED (<130/80) due on 1986 LDL CHOLESTEROL due on 04/26/2017 HEMOGLOBIN/HEMATOCRIT due on 09/07/2017 HBA1C due on 02/19/2018 SERUM CREATININE due on 05/03/2018 URINE ALBUMIN:CREATININE RATIO due on 05/03/2018 INFLUENZA(1) due on 05/10/2018 STATIN MED ADHERENCE due on 06/09/2018 DIABETES MED ADHERENCE due on 06/09/2018 TOM/ARB MED ADHERENCE due on 06/09/2018 DIABETIC FOOT EXAM due on 11/12/2018 ANNUAL PCP TEAM CHRONIC DISEASE VISIT due on 01/15/2019 DILATED RETINAL EXAM due on 01/22/2019 DTAP,TDAP,TD(2 - Td) due on 05/24/2025 ONE PNEUMOVAX PRIOR TO AGE 65 Completed ASSESSMENT/PLAN: 1. Uncontrolled type 2 diabetes mellitus with complication, with long-term current use of insulin (HCC) - ICD9: 250.82, V58.67, ICD10: E11.8, E11.65, Z79.4 (primary diagnosis) poorly controlled - Increase Lantus 35 units PM - Check HgA1C, Urine for albumin/creatinine ratio, CMP and CBC - Blood glucose monitoring on a three to four times a day schedule - Encouraged regular aerobic exercise and weight loss - Daily Asprin therapy recommended - Follow up in 3 months, sooner should any other issues arise. - BP goal of <130/80 - INSULIN GLARGINE (U-100) 100 UNIT/ML (3 ML) SUBCUTANEOUS PEN 2. Hypertension goal BP (blood pressure) < 140/90 - ICD9: 401.9, ICD10: I10 - poor control - Add lisinopril (Zestril/Prinivil) - Encouraged dietary sodium restriction/DASH diet - Recommended regular aerobic exercise. - Recommend home blood pressure monitoring, to bring results in on next visit - Follow up in 1 month for BP recheck. - Recheck in 3 months, sooner should new symptoms or problems arise. - Goal of BP <130/80 3. Other hyperlipidemia - ICD9: 272.4, ICD10: E78.4 - to be determined upon return of lab results - Continue current medication. - Encouraged following a low fat, low cholesterol diet. - Discussed the benefits of regular aerobic exercise and weight loss. - Follow up in 12 weeks. - LIPID PANEL, NONFASTING 4. Right leg weakness - ICD9: 729.89, ICD10: R29.898 - CONSULT TO PHYSICAL THERAPY 5. Gait instability - ICD9: 781.2, ICD10: R26.81 - CONSULT TO PHYSICAL THERAPY 6. Need for vaccination - ICD9: V05.9, ICD10: Z23 - ADMIN OF INFLUENZA VACCINE - INFLUENZA VACCINE QUADRIVALENT AGE 3 YRS PLUS + IM Irma Villa APRN.CUSTOM STUDIO COORDINATOR Prescription instructions reviewed with patient as applicable. Potential red flag symptoms discussed with the patient. Reviewed appropriate action plan to take if red flag symptoms occur. Patient agreeable to treatment plan. Irma Villa APRN.CNP 05/19/2018 11:15 AM Signed Please double check at home that you are not already taking Lisinopril. If not, please start BECK. Referring Provider: SELF [[id number]] Allergies As of Date: 05/19/2018 (No Known Allergies) Date Reviewed: 05/19/2018 Reviewed by: Monik Chinchilla Ma - Fully Assessed Reason for Visit: Recheck [92] Cmt: 3 month follow up Primary Visit Diagnosis:Uncontrolled type 2 diabetes mellitus with complication, with long-term current use of insulin (HCC) [E11.8, E11.65, Z79.4] Other Visit Diagnoses:Hypertension goal BP (blood pressure) < 140/90 [I10] Other hyperlipidemia [E78.4] Right leg weakness [R29.898] Gait instability [R26.81] Need for vaccination [Z23] Order(s):LIPID PANEL, NONFASTING [SQLIPNF] Order #: [id number] FUTURE insulin aspart U-100 (NOVOLOG FLEXPEN U-100 INSULIN) 100 unit/mL inpnInject insulin three times daily at first bite of food. Take 10 units with each mealDisp: 10 PenRfl: 11 insulin glargine (LANTUS SOLOSTAR U-100 INSULIN) 100 unit/mL (3 mL) inpnInject 35 Units subcutaneously every evening.Disp: 20 PenRfl: 6 lisinopril (ZESTRIL, PRINIVIL) 20 mg tabletTake 1 tablet by mouth once daily.Disp: 30 tabletRfl: 2 CONSULT TO PHYSICAL THERAPY [9032] Order #: [id number]: 1 ADMIN OF INFLUENZA VACCINE [[id number]] Order #: [id number]: 1 INFLUENZA VACCINE QUADRIVALENT AGE 3 YRS PLUS + IM [[id number]] Order #: [id number] Prescriptions as of 05/19/2018 Sig: INSULIN ASPART U-100 100 UNI* Inject insulin three times da* INSULIN GLARGINE (U-100) 100 * Inject 35 Units subcutaneousl* AMLODIPINE 5 MG TABLET Take 1 tablet by mouth once d* BUPROPION XL 300 MG 24 HR TAB Take 1 tablet by mouth once d* GABAPENTIN 300 MG CAPSULE Take 1 capsule by mouth three* ATORVASTATIN 20 MG TABLET Take 1 tablet by mouth at bed* ATENOLOL 100 MG TABLET Take 1 tablet by mouth once d* TAMSULOSIN 0.4 MG CAPSULE Take 1 capsule by mouth daily* FUROSEMIDE 20 MG TABLET Take 1 tablet by mouth twice * RANITIDINE 300 MG TABLET Take 1 tablet by mouth daily * ASPIRIN 81 MG CHEWABLE TABLET Take 81 mg by mouth once adela* LISINOPRIL 20 MG TABLET Take 1 tablet by mouth once d* PEN NEEDLE, DIABETIC 32 GAUGE* Use one needle for each dose,* CPAP Initiate Auto PAP @ 5- 20 cm o* LANCETS LANCETS FOR GLUCOSE METER. TE* BLOOD SUGAR DIAGNOSTIC STRIPS TEST BLOOD SUGAR 3 TIMES PER * BLOOD-GLUCOSE METER KIT Glucose Meter of Choice - Kit* COMPOUNDED PRESCRIPTION KNEE HIGH COMPRESSION STOCKIN* ACETAMINOPHEN ORAL Take by mouth. 1000 mg bid f* Problem List As Of Date 05/19/2018 Noted Resolved Uncontrolled type 2 diabetes mellitus with comp*INVALID FOR* More... Hypertension goal BP (blood pressure) < 140/90 *INVALID FOR* More... Other hyperlipidemia [E78.4] INVALID FOR* More... DEPRESSIVE DISORDER NEC [F32.9] INVALID FOR* More... ED (erectile dysfunction) [N52.9] INVALID FOR* Lower urinary tract symptoms (LUTS) [R39.9] INVALID FOR* History of kidney stones [Z87.442] INVALID FOR* Microscopic hematuria [R31.29] INVALID FOR* Diabetic polyneuropathy associated with type 2 *INVALID FOR* More... Acute pain of right shoulder [M25.511] INVALID FOR* More... Nausea [R11.0] INVALID FOR* More... Vomiting [R11.10] INVALID FOR* More... Moderate episode of recurrent major depressive *INVALID FOR* Stage 3 chronic kidney disease [N18.3] INVALID FOR* Other instructions from your clinician: Please double check at home that you are not already taking Lisinopril. If not, please start BECK. Prescriptions ordered this encounter Disp Refills Start End INSULIN ASPART U-100 100 UNIT/ML ROSENBER[place]* 10 P* 11 05/19/2018 Class: Med Update Sig: Inject insulin three times daily at first bite of food. Take 10 units with each meal INSULIN GLARGINE (U-100) 100 UNIT/ML* 20 P* 6 05/19/2018 Class: Med Update Route: SUBCUTANEOUS Sig: Inject 35 Units subcutaneously every evening. LISINOPRIL 20 MG TABLET 30 t* 2 05/19/2018 Route: ORAL Sig: Take 1 tablet by mouth once daily. Medications Discontinued During This Encounter insulin aspart U-100 (NOVOLOG FLEXPE* 10 P* 11 11/26/2017 05/19/2018 Class: Med Update Sig: Inject insulin three times daily at first bite of food. Take 15 units with each meal Disc: Reason for discontinue is not on file. insulin glargine (LANTUS SOLOSTAR U-* 20 P* 6 11/27/2017 05/19/2018 Class: Print RX Route: SUBCUTANEOUS Sig: Inject 60 Units subcutaneously every evening. Disc: Reason for discontinue is not on file. hydroCHLOROthiazide (HYDRODIURIL, ES* 30 t* 2 04/29/2017 05/19/2018 Route: ORAL Sig: Take 1 tablet by mouth once daily. Disc: Reason for discontinue is not on file. lisinopril (ZESTRIL, PRINIVIL) 40 mg* 30 t* 2 04/29/2017 05/19/2018 Route: ORAL Sig: Take 1 tablet by mouth once daily. Indications: hypertension Disc: Reason for discontinue is not on file. Disposition: Return in about 3 months (around 08/18/2018). Follow-up and Disposition History Recorded Encounter Status:Closed by IRMA VILLA CNP on 05/19/18 EMERGENCY DEPARTMENT Observed: 03/02/2018 Status: F Source: [facility] SUMMARY 3:24 PM [facility] Medical Records Department [address] [place] [address] Emergency Department Summary 03/02/18 1523 MR#: [id number] Acct: [id number] Name: WILLIAMS BURGOS Rep #: [id number] : 1970 47 From: Byron Saldana DO PCP: Anderson Gaston MD Status: REG ER - ER Visit Summary Date of Service: 03/02/18 Chief Complaint: [] History of Present Illness: The patient is a 47 M [] Physical Examination: [] Test Results: [] Emergency Department Course and Treatment: [] Treatment Plan: [] Disposition: [] Impression: [] This note was generated with [employer] dictation software. It may contain incorrect words, spelling, and punctuation that were not noted in review of the chart prior to signing ED Disposition - Plan for ED Patient: Disposition: Home or Assisted Living Chief Complaint: Edema Diagnosis: Peripheral edema Instructions: ED Leg Swelling Bilateral Referrals: Anderson Gaston MD [Primary Care Provider] - What to do if you have Problems For any increased pain, shortness of breath, bleeding, nausea or vomiting, chest pain, or any unexpected problems, contact your Primary Care Provider. Call [facility] ([phone]) or report to the closest Emergency Room. Call 911 if necessary. 03/02/18 1524 <Electronically signed by Byron Saldana DO> Date Byron Saldana DO Cosigner Signature (If Indicated): Date CC: Anderson Gaston MD EMERGENCY DEPARTMENT Observed: 03/02/2018 Status: F Source: [facility] SUMMARY 3:22 PM [facility] Medical Records Department [address] [place] [address] Emergency Department Summary 03/02/18 1251 MR#: [id number] Acct: [id number] Name: WILLIAMS BURGOS Rep #: [id number] : 1970 47 From: Byron Saldana DO PCP: Anderson Gaston MD Status: REG ER - ER Visit Summary Date of Service: 03/02/18 Chief Complaint: Lower extremity swelling and weight gain History of Present Illness: The patient is a 47 M who presents with lower extremity swelling and weight gain that has been getting worse since yesterday. Patient states he gained 8 pounds since yesterday. Patient states he feels swollen from his face to his toes. Patient denies any difficulty breathing. Patient denies any nausea or vomiting. Patient denies any chest pain. Patient denies any headaches. States he does have a history of stage IV kidney disease and diabetes. Physical Examination: Vital signs are stable. Patient is afebrile. Patient is in no acute distress. Oral mucosa is pink and moist. Neck is supple. There is no JVD noted. Heart was regular rate and rhythm. Lungs are clear and equal bilateral. There is good respiratory effort noted. Abdomen is soft nontender. There is 2+ edema of the lower extremities bilaterally. Cranial nerves II through XII are intact. There are no focal motor or sensory deficits noted. Patient was able to ambulate without difficulty. The remaining physical exam is within normal limits. Test Results: Creatinine was elevated at 3.17 which is consistent with prior results. The remaining labs were essentially within normal limits. Emergency Department Course and Treatment: Patient states he has increased his Lasix to 40 mg twice daily today. Patient was instructed to continue doing that for the next 2 days. Patient was instructed to follow-up with his primary care physician in 3-5 days. Patient understood and was agreeable with the plan. All questions were answered. Disposition: Discharged home Impression: Peripheral edema This note was generated with [employer] dictation software. It may contain incorrect words, spelling, and punctuation that were not noted in review of the chart prior to signing ED Disposition - Plan for ED Patient: Disposition: Home or Assisted Living Chief Complaint: Edema Diagnosis: Peripheral edema Instructions: ED Leg Swelling Bilateral Referrals: Anderson Gaston MD [Primary Care Provider] - What to do if you have Problems For any increased pain, shortness of breath, bleeding, nausea or vomiting, chest pain, or any unexpected problems, contact your Primary Care Provider. Call [facility] ([phone]) or report to the closest Emergency Room. Call 911 if necessary. 03/02/18 1522 <Electronically signed by Byron Saldana DO> Date Byron Saldana DO Cosigner Signature (If Indicated): Date CC: Anderson Gaston MD URINALYSIS, COMPLETE Collected: 03/02/2018 Status: F Source: [facility] 12:45 PM [facility] REPOSIT[facility] Order Comment: How was Urine Obtained? CLEAN CATCH TYPE CODE TESTS RESULT OUT OF RANGE REFERENCE UNITS LAB L400.3000 Yellow COLOR Normal Yellow LAB L400.3050 Clear Normal CLARITY Clear LAB L400.3200 Normal mg/dl High GLUCOSE, UR 1000 LAB L400.3300 Negative mg/dL Normal BILIRUBIN URINE Negative LAB L400.3400 Negative mg/dl Normal KETONE UR Negative LAB L400.3465 1.002-1.030 Normal SP.GR. DIPSTX 1.020 LAB L400.3550 5.0 - 8.0 pH UR Normal 5.0 LAB L400.3600 Negative mg/dl High PROT DIPSTX 500 LAB L400.3700 Normal mg/dl Normal UROBILI Normal LAB L400.3750 Negative Normal NITRITE UR Negative LAB L400.3780 Negative /ul High 25 OCCULT BLOOD-UR LAB L400.3800 Negative /ul LEUK Normal ESTERASE Negative LAB L400.4050 0-5 /hpf WBC 0 Normal SEEN LAB L400.4100 0-5 /hpf Normal RBC-UA 0-5 SEEN LAB L400.4150 0-5 /hpf SQUAM 0 Normal EPI SEEN LAB L400.4300 None Seen /hpf Normal BACTERIA RARE LAB L400.4350 <or=2+ /hpf 0 Normal MUCUS, URINE SEEN LAB L400.4400 0-5 /lpf Normal HYALINE CAST 0-5 SEEN LAB L400.4450 0-5 /lpf FINE Normal GRAN CAST 0-5 SEEN Performed By: #### L400.0001 #### [facility] [address] [place], [address] CHEST PA AND LATERAL Observed: 03/02/2018 Status: F Source: [facility] 12:31 PM [facility] Imaging Services [address] [place] [address] Chest PA and Lateral MR#: [id number] Acct: [id number] Name: WILLIAMS BURGOS Rep #: [id number] : 1970 M 47 From: Torrie Montiel MD PCP: Anderson Gaston MD Status: REG ER Study: Chest PA and Lateral Date of Exam: 03/02/18 Exam# [id number] Ordering Dr: Byron Saldana DO STUDY: X-RAY CHEST REASON FOR EXAM: Male, 47 years old. DRY COUGH T EDEMA X 2 WKS TECHNIQUE: PA and lateral views of the chest. COMPARISON: December 10, 2017 FINDINGS: There is improved aeration of the right lower lobe with residual mild consolidation. The appearance is stable compared to December 31, 2012. There is no demonstrated pleural abnormality. There is stable borderline cardiac megaly. Normal mediastinum and reena. Normal visualized pulmonary arteries. Normal visualized aortic arch and descending thoracic aorta. Normal visualized thoracic spine. Normal visualized ribs, clavicles, and shoulders. There is no demonstrated abnormality of the visualized soft tissue structures of the upper abdomen. RAD/Chest PA and Lateral IMPRESSION: No acute disease is demonstrated. Electronically Signed: Torrie Montiel MD at 13:44 EDT , Service support , CC: Anderson Gaston MD; Byron Saldana DO Hand Packager: Signed CBC W/DIFF, AUTOMATED Collected: 03/02/2018 Status: F Source: [facility] 12:30 PM [facility] TYPE CODE TESTS RESULT OUT OF RANGE REFERENCE UNITS LAB L100.1000 4.4-11.0 K/mm3 Normal WBC 6.8 LAB L100.1200 4.6-6.2 M/mm3 Low RBC 3.43 LAB L100.1300 13.0-16.5 g/dl Low HGB 10.4 LAB L100.1400 40-54 % Low HCT 28.9 LAB L100.1500 80-94 fL Normal MCV 84.3 LAB L100.1600 27.0-32.0 pg Normal MCH 30.3 LAB L100.1700 32-36 g/gl Normal MCHC 36.0 LAB L100.1810 11.6-14.6 % Normal RDW CV 12.2 LAB L100.1820 35.1-43.9 fl Normal RDW SD 36.7 LAB L100.1900 150-450 K/mm3 Normal PLT 239 LAB L100.2000 6.2-12.0 fl Normal MPV 9.2 LAB L100.2100 47-70 % Normal NEUT% 68.9 LAB L100.2200 19-41 % Normal LY% 20.2 LAB L100.2300 0-10 % Normal MONO% 9.1 LAB L100.2400 0-5 % Normal EO% 1.2 LAB L100.2500 0-1 % Normal BASO% 0.3 LAB L100.2550 0.0-0.9 % Normal IM GRAN % 0.300 Result Comment: IG% - Immature Granulocytes (promyelocytes, myelocytes and metamyelocytes) > 1% indicates that a LEFT SHIFT is Present. LAB L100.2620 2.0-7.7 X10 3/uL Normal Absolute Neut 4.7 LAB L100.2720 0.83-4.51 X10 3/ul Normal Absolute Lymph 1.38 Performed By: #### L100.0100 #### [facility] [place], [address] BASIC METABOLIC Collected: 03/02/2018 Status: F Source: [facility] PRO[facility] ([facility]) 12:30 PM [facility] TYPE CODE TESTS RESULT OUT OF RANGE REFERENCE UNITS LAB L501.0100 74-106 mg/dL High GLU 206 Result Comment: Glucose result greater than or equal to 200 mg/dL suggests DIABETES MELLITUS per A.D.A. criteria. Please note revised GLUCOSE reference range effective 2017. LAB L501.1000 7-18 mg/dL High BUN 56 LAB L501.1100 0.70-1.30 mg/dL High CREAT,SERUM 3.17 Result Comment: The validity of the calculated GFR AND GFRAA in patients over 70 years has not been determined. Clinical correlation is essential. LAB L501.1110 >60 mL/min Low EST GFR 22 Result Comment: Non- GFR Calc LAB L501.1115 >60 mL/min Low EST GFR - AA 27 Result Comment: GFR Calc LAB L501.1255 ml/min Normal Estimated CRCL 27.27 LAB L501.1300 10-20 RATIO Normal BUN/CRE 17.7 LAB L501.2200 8.5-10 mg/dL Normal .1 CA 8.6 LAB L501.5300 136-14 mmol/L Normal 5 NA 139 LAB L501.5600 3.5-5. mmol/L Normal 1 K 4.2 LAB L501.5900 98-107 mmol/L High CL 108 LAB L501.6100 21.0-3 mmol/L Normal 2.0 CO2 26.0 LAB L501.6200 5-15 Normal GAP 5 Performed By: #### L500.2500 #### [facility] [place], [address] BASIC METABOLIC Collected: 02/24/2018 Status: F Source: [facility] PRO[facility] ([facility]) 2:01 PM [facility] TYPE CODE TESTS RESULT OUT OF RANGE REFERENCE UNITS LAB L501.0100 74-106 mg/dL High GLU 418 Result Comment: Glucose result greater than or equal to 200 mg/dL suggests DIABETES MELLITUS per A.D.A. criteria. Please note revised GLUCOSE reference range effective 2017. LAB L501.1000 7-18 mg/dL High BUN 52 LAB L501.1100 0.70-1.30 mg/dL High CREAT,SERUM 3.06 Result Comment: The validity of the calculated GFR AND GFRAA in patients over 70 years has not been determined. Clinical correlation is essential. LAB L501.1110 >60 mL/min Low EST GFR 23 Result Comment: Non- GFR Calc LAB L501.1115 >60 mL/min Low EST GFR - AA 28 Result Comment: GFR Calc LAB L501.1300 10-20 RATIO Normal BUN/CRE 17.0 LAB L501.2200 8.5-10.1 mg/dL CA Normal 8.5 LAB L501.5300 136-145 mmol/L NA Normal 138 LAB L501.5600 3.5-5.1 mmol/L K Normal 4.6 LAB L501.5900 98-107 mmol/L CL Normal 106 LAB L501.6100 21.0-32.0 mmol/L Normal CO2 26.0 LAB L501.6200 5-15 Normal GAP 6 Performed By: #### L500.2500 #### [facility] [address] [place], [address] CARDIOLOGY VISIT Observed: 02/20/2018 Status: F Source: [facility] REPORT 10:45 AM [facility] RE[facility] [address] [place] [address] OFFICE VISIT Date of Service: 02/19/18 MR#: [id number] Acct: [id number] Name: WILLIAMS BURGOS Rep #: [id number] : 1970 Provider: CUAUHTEMOC Faith Age/Sex: 47/M [facility] [facility] Status: Signed HPI HPI Details: WILLIAMS BURGOS, is a 47 M who presents to the office today for a cardiovascular follow-up. He has a medical history of diastolic congestive heart failure, left ventricular hypertrophy, diabetes mellitus type 2, diabetic nephropathy, nephrotic syndrome, diabetic neuropathy, diabetic retinopathy, obesity, noncompliance with diet and medications, hypertension, hyperlipidemia, anxiety/depression, GERD, Tobacco dependence (chewing tobacco), chronic renal failure stage III, urine retention, and sleep apnea with CPAP. He has multiple hospital admissions for shortness of breath, fluid retention, and uncontrolled diabetes. His most recent admission was in December 2017 in which he was sent to [facility] emergency department after primary care physician noted shortness of breath and edema. His BNP was elevated in the 300s and his chest x-ray showed pulmonary vascular congestion. He was diuresed. His cardiac enzymes remained negative. He was noted to have acute kidney injury that was believed to be related to fluid retention and urinary retention. 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 He states being compliant with medications. Pt denies chest, arm, jaw, or neck discomfort. His exercise tolerance is stable. Pt denies symptoms of CHF, palpitations, lightheadedness, dizziness, near syncopal or syncopal episodes. Pt denies edema or claudication issues. Pt. denies orthopnea, PND, fever, chills, blood in urine, blood in stool, myalgia, or unexplainable fatigue. He is doing PT at home to help with right leg weakness. Intake Vital Signs02/19/18 Height 5 ft 8 in 02/19/18 Weight: 213 lb 02/19/18 Body Mass Index (BMI) 32.3 02/19/18 Blood Pressure 170/100 Intake Visit Reasons: 6 M FU Office Inspector Required: No Is patient in pain?: No Allergies No Known Allergies Allergy (Verified 02/19/18 16:02) Medications Gabapentin [Neurontin] 300 mg PO TIDCM 07/15/13 [History Confirmed 02/19/18] Bupropion HCl [Wellbutrin Xl] 300 mg PO DAILY 05/06/17 [History Confirmed 02/19/18] Atorvastatin Calcium [Lipitor] 20 mg PO QHS 11/19/17 [History Confirmed 02/19/18] Atenolol [Tenormin (beta elizabeth)] 100 mg PO DAILY 11/28/17 [History Confirmed 02/19/18] Psyllium [Metamucil] 1 packet PO DAILY PRN PRN packet 12/05/17 [Rx Confirmed 02/19/18] insulin aspart U-100 100 unit/mL subcutaneous pen 4 unit SC TID #15 ml 12/18/17 [Rx Confirmed 02/19/18] insulin glargine (U-100) 100 unit/mL (3 mL) subcutaneous pen 34 unit SC QHS #15 ml 12/18/17 [Rx Confirmed 02/19/18] aspirin 325 mg tablet 325 mg PO QDAY 12/26/17 [History Confirmed 02/19/18] acetaminophen 500 mg tablet 1,000 mg PO QDAY PRN tab 01/20/18 [History Confirmed 02/19/18] tamsulosin 0.4 mg capsule 0.4 mg PO QDAY cap 01/20/18 [History Confirmed 02/19/18] furosemide 40 mg tablet 20 mg PO BID tab 02/19/18 [History Confirmed 02/19/18] [facility] Medical History Retention, urine (Acute) Acute on chronic diastolic CHF (congestive heart failure) (Acute) Acute hypoxemic respiratory failure (Ruled-out) Hypoglycemia (Acute) Acute respiratory failure with hypoxia (Ruled-out) Obesity (BMI 30-39.9) (Chronic) Noncompliance (Chronic) Diabetic neuropathy (Chronic) Diabetic nephropathy (Chronic) Diabetic retinopathy (Chronic) HTN (hypertension) (Chronic) HLD (hyperlipidemia) (Chronic) Blind left eye (Chronic) Diabetes mellitus type II, uncontrolled (Chronic) Anxiety and depression (Chronic) GERD (gastroesophageal reflux disease) (Chronic) Chewing tobacco nicotine dependence (Chronic) ILDA (acute kidney injury) (Ruled-out) Right leg pain (Resolved) Chronic ulcer of 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 (Resolved) Cellulitis and abscess of right leg (Resolved) History of acute myocardial infarction (Chronic) Kidney failure (Acute) Kidney stones (Acute) Pneumonia (Acute) Vision problems (Acute) Hypertensive emergency (Resolved) Hypokalemia (Resolved) Surgical History History of eye surgery (Chronic) History of cholecystectomy (Resolved) Family History Mother Heart disease Hypertension Father Cancer Brother Cancer Diabetes Sister Diabetes Social History Smoking Status: Never smoker second hand exposure: No alcohol intake: never substance use type: does not use ROS Const Const: Negative for fatigue, weakness, body ache, fever(s) or chills ENT ENT: Negative for dizziness Cardio Chest Pain: No Palpitations: No Edema: None Muscle aches with walking: None Resp Respiratory: Negative for SOB with activity, SOB at rest, SOB orthopnea\SOB lying down or paroxysmal nocturnal dyspnea GI GI: Negative nausea, black,tarry stools, bright, red blood in stools or vomiting blood/hematemesis : Negative for hematuria or frequent nighttime urination/ nocturia Musc Musc: Positive for muscle weakness (right leg); negative for muscle aches/ myalgia Skin Skin: Negative non-healing lesions or rash Neuro Neuro: Negative for weakness, dizziness, lightheadedness, near syncope, syncope or orthostatic symptoms Endo Endo: Negative for fatigue Allergy Allergy/Immunology: Negative for rash Cardiology Exam Const Appearance: cooperative, healthy appearing, comfortable and no acute distress Orientation: alert, awake and oriented x3 Head Head: normal to inspection Ears: hearing grossly normal bilaterally Nose: external nose normal Face and Sinus: face symmetric Mouth: oral mucosae normal Eyes General: appearance normal, both eyes and all related structures Eyelids: eyelids normal Neck Neck: no JVD and normal visual inspection Carotids: normal carotid upstroke Chest Chest inspection: normal inspection of the chest and normal respiratory effort; negative cough Auscultation: Bilateral: Clear to Auscultation Cardio Rate: regular rate Rhythm: regular rhythm and ectopic beats Heart sounds: S1 normal and S2 normal; negative rub or gallop GI GI: normal to inspection Neuro General: alert, awake, oriented x3 and CN's II-XI intact bilaterally Skin Skin: no rashes or lesions noted Extremities Pulses: Normal: Right Posterior Tibial Pulse, Left Posterior Tibial Pulse, Right Radial Pulse, Left Radial Pulse Lower Extremity Edema: +1: Bilateral Psych Psychological: normal affect Supplemental Info Echocardiogram from November 2017 Interpretation Summary: Moderate concentric left ventricular hypertrophy. The estimated ejection fraction is 65 %. Saline contrast study demonstrates trivial right to left interatrial shunt. Unable to estimate RV systolic pressure/pulmonary artery pressure due to technically difficult study. Small anterior pericardial effusion. Fibrinous strands located on epicardial surface of RV; possible epicardial fat. There are no echocardiographic indications of cardiac tamponade. Compared to echo report dated 06/25/2011, LV function has remained the same. Small anterior pericardial effusion without tamponade noted on today's exam. Heart catheterization from June 2011 showed normal left systolic function with ejection fraction 65%, LAD with ostial 10%, proximal 10%, and 20-30% distal stenosis, ramus intermedius with 10-20% mid stenosis, first obtuse marginal with 20-30% mid stenosis, and RCA that was angiographically normal. Assessment AND Plan 1. Acute on chronic diastolic CHF (congestive heart failure) I50.33 Plan - Aj H Roof, CVIR TECH-C Patient's echocardiogram from November 2017 showed ejection fraction of 65%. Today in office he denies any shortness of breath. He states improved lower extremity pedal edema and medication compliance. His diuretic has been decreased by primary care physician since hospital discharge. At this time we will not make any medication regimen changes. He was reminded of symptoms to monitor that may indicate fluid retention and to contact our office if he notices any of these. He will continue current beta-elizabeth. Patient's heart catheterization from June 2011 showed normal left systolic function with ejection fraction 65%, LAD with ostial 10%, proximal 10%, and 20-30% distal stenosis, ramus intermedius with 10-20% mid stenosis, first obtuse marginal with 20-30% mid stenosis, and RCA that was angiographically normal. 2. Ectopic cardiac beats I49.49 LAISHA Card On physical exam ectopic beats are noted. He will undergo a 24-hour Holter monitor for further evaluation. He denies any symptomatic knowledge of these ectopic beats. Based on the results further recommendation will be made. There is no documentation noting dysrhythmia on telemetry during his recent hospitalizations. 3. Essential hypertension I10 LAISHA Card Patient's blood pressure is elevated today in the office. It was rechecked and remained elevated. His amlodipine was discontinued during his recent hospitalization due to lower extremity pedal edema/fluid volume overload. He was asked to monitor this for the next 4-5 days and contact the office with an update. If his blood pressure remains elevated, we will consider reintroduction of amlodipine. Hopefully with medication compliance with diuretic he will not develop major lower extremity pedal edema. Tom inhibitors will not be started due to recovering kidney injury, but this may be a consideration in the future if his kidney function improves. He has an appointment with nephrology in approximately 2 weeks which his blood pressure will again be reevaluated. 4. ILDA (acute kidney injury) N17.9 LAISHA Card His most recent creatinine from December 25, 2017 was 3.05 with a BUN of 61. His estimated GFR was 23. He will continue to follow-up with ring cutter lathe operator for ongoing evaluation of this. Since hospitalization he has discontinued his Sky catheter and has urinated without issues on his own. Hopefully, this means improving kidney function. 5. Uncontrolled type 2 diabetes mellitus with stage 3 chronic kidney disease, with long-term current use of insulin E11.22 Dx : 1993 Discussed with patient need to check BG in pairs, learn carb counting and then we can determine I/C ratio for him at last visit. is doing well with his diet. He stopped his basalglar. He is willing to start again at lower dose and titrate back up. He will start at 10 units and increase by 2-3 units every 3 days if he is waking with higher BG than he went to bed with. I have also decrease his correction to 1-50 so that he is not going low after correction. I have given he an alternative correction scale to use if he needs less correction when he begins with higer dose of basaglar and finds his current correction may be too strong. On statin On asa Plan - LAISHA Ching He will continue to follow-up with Endocrinology team for this. Hopefully as he better controls his diabetes it will result in less fluid retention episodes and blood sugar fluctuations. Plan Detail Other Orders Orders: Other Medications Changed: Discontinued: albuterol sulfate HFA 90 mcg/actuation 2 puffs Inhalation Q4H PRN PRN Sob AND /Or WJ96.01 Discontinued Reason: Pt no longer taking heezing Additional Comments - LAISHA Ching Discussed the above patient with Dr. Cabral, he agrees with the plan of care. Thank you for allowing us to participate in the patients plan of care, if you have any questions please do not hesitate to call. This note was generated using a voice recognition system and there may be incorrect words, spelling or punctuation that were not noted when reviewing the office note prior to saving. 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 insulin use: with residential use Diabetes mellitus complication status: with kidney complications Diabetes mellitus complication detail: with chronic kidney disease Chronic kidney disease stage: stage 3 (moderate) Coding Level of Care Code Off vis,new,level 4 Diagnoses Acute on chronic diastolic CHF (congestive heart failure) I50.33 Ectopic cardiac beats I49.49 Essential hypertension I10 Hypertension type: essential hypertension ILDA (acute kidney injury) N17.9 Uncontrolled type 2 diabetes mellitus with stage 3 chronic kidney disease, with long-term current use of insulin E11.22 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 insulin use: with residential use Diabetes mellitus complication status: with kidney complications Diabetes mellitus complication detail: with chronic kidney disease Chronic kidney disease stage: stage 3 (moderate) 02/19/18 1745 <Electronically signed by Aj Faith CVIR TECH-C> Date Aj Faith CVIR TECH-C 02/20/18 1045<Electronically signed by Vj Cabral MD> Cosigner Signature: Date (if applicable) Vj Cabral MD CC: Anderson Gaston MD PROGRESS Observed: 02/07/2018 Status: COMPLETED Source: [place] 2:11 PM [facility] HNO ID: [id number] Author: Terry Patterson (Rn) Service: (none) Author Type: Registered Nurse Type: Progress Notes Filed: 02/07/2018 2:33 PM Note Text: PRIMARY CARE COORDINATION QUICK NOTE Provider Action/FYI Tcf Pt who wanted to verify what dosage of Lasix he should take, notified Pt Pcp has ordered Lasix 20 mg Take 1 tablet by mouth twice daily, reviewed x2, Pt verbalized understanding. No additional needs or concerns Patient identified by name and date . Yesenia Steawrt RN February 07, 2018 2:12 PM CNPTOUTREACH Observed: 02/07/2018 Status: COMPLETED Source: [place] 12:00 AM [facility] Patient Outreach (FAMPWS) WILLIAMS BURGOS ([id number]) 1970 M Date Time Provider Department 02/07/18 TERRY PATTERSON (RN) FAMPWS During your visit today, we recorded the following information about you: Yesenia Stewart RN 02/07/2018 2:33 PM Signed PRIMARY CARE COORDINATION QUICK NOTE Provider Action/FYI Tcf Pt who wanted to verify what dosage of Lasix he should take, notified Pt Pcp has ordered Lasix 20 mg Take 1 tablet by mouth twice daily, reviewed x2, Pt verbalized understanding. No additional needs or concerns Patient identified by name and date . 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 TE* BLOOD SUGAR DIAGNOSTIC STRIPS TEST BLOOD SUGAR 3 TIMES PER * BLOOD-GLUCOSE METER KIT Glucose Meter of Choice - Kit* FUROSEMIDE 20 MG TABLET Take 1 tablet by mouth twice * INSULIN GLARGINE (U-100) 100 * Inject 60 Units subcutaneousl* INSULIN ASPART U-100 100 UNI* Inject insulin three times da* COMPOUNDED PRESCRIPTION KNEE HIGH COMPRESSION STOCKIN* RANITIDINE 300 MG TABLET Take 1 tablet by mouth daily * BUPROPION XL 300 MG 24 HR TAB Take 1 tablet by mouth once d* AMLODIPINE 5 MG TABLET Take 1 tablet by mouth once d* HYDROCHLOROTHIAZIDE 25 MG TAB* Take 1 tablet by mouth once d* LISINOPRIL 40 MG TABLET Take 1 tablet by mouth once d* ASPIRIN 81 MG CHEWABLE TABLET Take 81 mg by mouth once adela* ACETAMINOPHEN ORAL Take by mouth. 1000 mg bid f* Problem List As Of Date 02/07/2018 Noted Resolved Uncontrolled type 2 diabetes mellitus with comp*INVALID FOR* More... Hypertension goal BP (blood pressure) < 140/90 *INVALID FOR* More... HYPERLIPIDEMIA NEC/NOS [E78.5] INVALID FOR* More... DEPRESSIVE DISORDER NEC [F32.9] INVALID FOR* More... ED (erectile dysfunction) [N52.9] INVALID FOR* Lower urinary tract symptoms (LUTS) [R39.9] INVALID FOR* History of kidney stones [Z87.442] INVALID FOR* Microscopic hematuria [R31.29] INVALID FOR* Diabetic polyneuropathy associated with type 2 *INVALID FOR* More... Acute pain of right shoulder [M25.511] INVALID FOR* More... Nausea [R11.0] INVALID FOR* More... Vomiting [R11.10] INVALID FOR* More... Moderate episode of recurrent major depressive *INVALID FOR* Stage 3 chronic kidney disease [N18.3] INVALID FOR* Encounter Status:Closed by YESENIA STEWART on 02/07/18 ENDOCRINOLOGY VISIT Observed: 01/20/2018 Status: F Source: [facility] REPORT 6:43 PM [facility] REPOSITORY [facility] [address] [place] [address] [address] [place] [address] OFFICE VISIT Date of Service: 01/20/18 MR#: [id number] Acct: [id number] Name: WILLIAMS BURGOS Rep #: [id number] : 1970 Provider: Norah Adams NP Age/Sex: 47/M Location: [facility] Status: Signed HPI History of present illness Williams Burgos is a 47 year old male who presents for 1 month follow up of diabetes type 2. Diagnosed in 1990. Is accompanied by his . Presents with walker. Was instructed basaglar 35 units daily and meal insulin4 units per meal and sliding scale. He did not recall what his sliding scale was at last visit. Stopped taking basaglar 2 weeks ago due to low BG in the middle of the night. meal insulin 4 units per meal continues. Pt denies difficulty with injections or self monitoring of BG. Denies any signs of infection or irritation at site of injections. He has been trying to follow his low protein diet. At time of visit: -Pt denies symptoms of hypertensive emergency (CP,SOB,VELASCO, or blurred vision) and hypotension(dizziness or lightheadedness) -Pt denies symptoms of hypoglycemia ( sweaty, confusion, anxiety, tremor, hunger, palpitations) and hyperglycemia ( polydipsia, polyuria) -Pt denies potential medication adverse effect. Hypoglycemia Aware of hypoglycemia: When awake Able to self treat low BG: Yes Frequent low Blood sugar: No Has supply of glucagon: No Diet 3 meals No carb counting Low protein diet SMBG Average > 200 Checks BG before meals when he is checking Sliding scale 1-25 Type: type 2, insulin-requiring Glucose control symptoms: Reports high fasting glucose and high post-meal glucose Weight and fatigue symptoms: Denies snoring Cardiopulmonary symptoms: Denies chest pain at rest, dyspnea on exertion, lightheadedness or myalgias GI symptoms: Reports nausea/dyspepsia and vomiting; denies constipation or diarrhea Skin and extremity symptoms: Reports tingling/numbness/burning; denies erectile dysfunction Other symptoms: Denies blurry vision or change in vision Pertinent visit history: Reports recent hospital admission Self monitoring: Yes Sick day education - understands ketone testing: No Physical activity: wheelchair-bound Exam Const General: comfortable Nutritional Appearance: average body habitus Orientation: oriented x3 HENMT Head: normal to inspection, normocephalic Ears: hearing grossly normal bilaterally Mouth: oral mucosae normal, moist mucous membranes Eyes Eyelids: eyelid abnormality (left) left upper eyelid Sclera: sclerae normal Neck Neck: normal visual inspection Resp Effort AND Inspection: normal respiratory effort, symmetric chest movement, able to speak in complete sentences Cardio Rate: regular rate Rhythm: regular rhythm Heart Sounds: S1 normal, S2 normal GI Inspection: normal to inspection Auscultation: normal bowel sounds Skin General: excoriation Diabetic Foot Monofilament test: Left foot: abnormal, Right foot: abnormal Neuro General: moves all extremities Cognition: normal cognition Speech: speech normal Extrem General: edema Psych Mental Status: mental status grossly normal Mood: congruent mood Affect: normal affect Speech and Movement: speech and movement normal Attitude: cooperative Thought Process: normal Thought Content: normal Weight and fatigue symptoms: Denies snoring Cardiopulmonary symptoms: Denies chest pain at rest, dyspnea on exertion, lightheadedness or myalgias GI symptoms: Denies constipation, diarrhea, nausea/dyspepsia or vomiting Skin and extremity symptoms: Denies erectile dysfunction Other symptoms: Reports blurry vision and change in vision Intake Vital Signs01/20/18 Height 5 ft 8 in 01/20/18 Weight: 215 lb 4 oz 01/20/18 Body Mass Index (BMI) 32.7 01/20/18 Blood Pressure 136/80 01/20/18 Blood Pressure Location Lt popliteal 01/20/18 Blood Pressure Position Sitting Intake Visit Reasons: Diabetes Mellitus Type 2 Office Inspector Required: No Accompanied by: Is patient in pain?: No Allergies No Known Allergies Allergy (Verified 01/20/18 16:28) Medications Gabapentin [Neurontin] 300 mg PO TIDCM 07/15/13 [History Confirmed 01/20/18] Bupropion HCl [Wellbutrin Xl] 300 mg PO DAILY 05/06/17 [History Confirmed 01/20/18] Atorvastatin Calcium [Lipitor] 20 mg PO QHS 11/19/17 [History Confirmed 01/20/18] Atenolol [Tenormin (beta elizabeth)] 100 mg PO DAILY 11/28/17 [History Confirmed 01/20/18] Psyllium [Metamucil] 1 packet PO DAILY PRN PRN packet 12/05/17 [Rx Confirmed 01/20/18] Albuterol Inhaler [Ventolin Hfa] 2 puff INHALATION Q4H PRN PRN #1 inhaler 12/06/17 [Rx Confirmed 01/20/18] insulin aspart U-100 100 unit/mL subcutaneous pen 4 unit SC TID #15 ml 12/18/17 [Rx Confirmed 01/20/18] insulin glargine (U-100) 100 unit/mL (3 mL) subcutaneous pen 34 unit SC QHS #15 ml 12/18/17 [Rx Confirmed 01/20/18] aspirin 325 mg tablet 325 mg PO QDAY 12/26/17 [History Confirmed 01/20/18] acetaminophen 500 mg tablet 1,000 mg PO QDAY PRN tab 01/20/18 [History Confirmed 01/20/18] furosemide 40 mg tablet 40 mg PO BID tab 01/20/18 [History] tamsulosin 0.4 mg capsule 0.4 mg PO QDAY cap 01/20/18 [History Confirmed 01/20/18] Nurse's Note: blood sugars : low : 80 high : >400 [facility] Medical History Retention, urine (Acute) Acute on chronic diastolic CHF (congestive heart failure) (Acute) Acute hypoxemic respiratory failure (Ruled-out) Hypoglycemia (Acute) Acute respiratory failure with hypoxia (Ruled-out) Obesity (BMI 30-39.9) (Chronic) Noncompliance (Chronic) Diabetic neuropathy (Chronic) Diabetic nephropathy (Chronic) Diabetic retinopathy (Chronic) HTN (hypertension) (Chronic) HLD (hyperlipidemia) (Chronic) Blind left eye (Chronic) Diabetes mellitus type II, uncontrolled (Chronic) Anxiety and depression (Chronic) GERD (gastroesophageal reflux disease) (Chronic) Chewing tobacco nicotine dependence (Chronic) ILDA (acute kidney injury) (Ruled-out) Right leg pain (Resolved) Chronic ulcer of 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 (Resolved) Cellulitis and abscess of right leg (Resolved) History of acute myocardial infarction (Chronic) Kidney failure (Acute) Kidney stones (Acute) Pneumonia (Acute) Vision problems (Acute) Hypertensive emergency (Resolved) Hypokalemia (Resolved) Surgical History History of eye surgery (Chronic) History of cholecystectomy (Resolved) Family History Mother Heart disease Hypertension Father Cancer Brother Cancer Diabetes Sister Diabetes Social History Smoking Status: Never smoker second hand exposure: No alcohol intake: never substance use type: does not use ROS Const Constitutional: No anorexia, body ache, chills, fatigue, fever(s), frequent falls, decreased energy, malaise, night sweats, weakness, weight change, sleep problems, abnormal sleep pattern, change in appetite, other, headache(s), snoring or excessive sweating Eyes Eyes: Positive for blurry vision and change in vision; no double vision, discharge, dry eyes, bulging eyes, floaters, visual disturbances, eye pain, light sensitivity, spots in vision, tunnel vision or other ENT ENT: No abnormal hearing, ear pain, ear discharge, ear pressure, hearing loss, tinnitus, dizziness/vertigo, balance problems, nosebleed/epistaxis, nasal congestion, nasal obstruction, nose pain, sinus pressure, sinus pain, nasal discharge, post nasal drip, headache(s), facial pain, dental pain, dry mouth, bad breath, hoarseness, lip swelling, mouth lesions, mouth pain, sore throat, tongue swelling, throat swelling, other, difficulty swallowing or neck pain Resp Respiratory: No cough, change in phlegm color, chest congestion, excessive phlegm production, hemoptysis, pain on inspiration, shortness of breath, pain with cough, snoring, stridor, wheezing or other Cardio Cardiology: Positive for generalized swelling; no chest pain at rest, chest pain with exertion, leg pain with exertion, excessive sweating, shortness of breath, dyspnea on exertion, irregular heart rhythm, lightheadedness, orthopnea, radiating jaw, neck or arm pain, fast heart rate, slow heart rate, palpitations or other Gastro GI: No abdominal pain, belching, bloating, change in bowel habits, change in stool character, coffee ground emesis, constipation, cramping, diarrhea, heartburn, difficulty swallowing, feeling full early, excessive flatus, incontinent of stools, Vomiting blood/hematemesis, blood in stool, loose stools, Black,tarry stools, nausea/dyspepsia, pain with swallowing, vomiting or other Genitourinary Male: No difficulty urinating, burning urination, painful urination, urinary incontinence, urinary frequency, urinary urgency, urinary hesitancy, urinary retention, blood in urine, Frequent nighttime urination/ nocturia, post void dribbling, suprapubic fullness, side pain, sexual problems, genital lesions, genital itching, erectile dysfunction, penile discharge, difficulty with ejaculations, blood in semen, scrotal swelling, testicle lump, testicle pain or other Musc Musculoskeletal: No abnormal walking, joint pain, back pain, deformity, joint swelling, limited range of motion, loss of height, muscle cramps, muscle weakness, decreased muscle mass, body aches, neck pain, numbness, radiating pain into limb, stiffness, tingling or other Skin Skin: No acne, hair loss, change in hair, nail changes, boil, change in skin color, dry skin, redness, excessive hair growth, yellowing of the skin, lesions, itching, rash, skin pain, skin ulcer, sores, skin swelling, wounds or other Breast Breast: No other Neuro Neurology: No frequent falls, weakness, visual disturbances, abnormal hearing, headache(s), abnormal walking, numbness or tingling Psych Psychiatric: No abnormal sleep pattern, No change in appetite Endo Endocrine: No fatigue, other or excessive sweating Aller/Imm Allergy/Immunologic: No lip swelling, tongue swelling, throat swelling, wheezing or itchy eyes Assessment AND Plan Problems 1. Chronic renal failure, stage 4 (severe) N18.4 2. Uncontrolled type 2 diabetes mellitus with stage 3 chronic kidney disease, with long-term current use of insulin E11.22 Plan Detail Additional Comments 1. Please schedule follow up in 1 month 2. Lab work one week before appointment. 3. Discussed importance of regular exercise and recommend starting or continuing a regular exercise program for good health. 4. The patient was encouraged to lose weight for good health 5. The importance of monitoring blood sugar regularly was reviewed. 6. The importance of monitoring the HBA1c level regularly was reviewed. 7. The importance of prper foot care and regularly checking feet to prevent sores and loss of limbs was reviewed. 8. The importance of keeping BP at or below 130/80 to prevent stroke, heart attacks, kidney failure, blindness was reviewed. Spent approximately 45 minutes with patient with over 50% of time spent in discussion and counseling regarding medication adjustment, symptoms and treatment of hypoglycemia, diet adherence, and checking BG before driving. Coding Level of Care Code Off vis,est,level 4 Diagnoses Chronic renal failure, stage 4 (severe) N18.4 Uncontrolled type 2 diabetes mellitus with stage 3 chronic kidney disease, with long-term current use of insulin E11.22 Diabetes mellitus residential insulin use: with residential use Diabetes mellitus complication status: with kidney complications Diabetes mellitus complication detail: with chronic kidney disease Chronic kidney disease stage: stage 3 (moderate) Time Spent (min) 45 01/20/18 6343 <Electronically signed by Norah INTERIANO> Date Norah INTERIANO Cosigner Signature: Date (if applicable) CC: PROGRESS Observed: 01/18/2018 Status: COMPLETED Source: [place] 3:33 AM [facility] HNO ID: [id number] Author: Maranda Nath Service: (none) Author Type: (none) Type: Progress Notes Filed: 01/18/2018 3:34 AM Note Text: Sleep Study Check-In Documentation Date: January 18, 2018 Name: Williams Burgos Patient was accompanied by Self. Location: [place] Latex allergy: No Tape allergy: No Current medications were reviewed with the patient:Yes Sleep aid taken by patient for the sleep study: [place] of sleep aid: Not Applicable Procedure was explained to the patient and all questions were answered. PAP treatment discussed and shown to patient: Yes Knowledge Program (KP): KP was not completed in [facility] by patient and accepted Study type: Polysomnogram Adverse Event: No (If yes create a new abstract) SERS Event: No Comments: Patient was advised to follow up with their ordering provider regarding test results Maranda Hess PROGRESS Observed: 01/15/2018 Status: COMPLETED Source: [place] 5:13 PM [facility] HNO ID: [id number] Author: Anderson Gaston Service: (none) Author Type: Physician Type: Progress Notes Filed: 01/15/2018 8:35 PM Note Text: Reason for Visit Patient presents with: Established Patient: 1 month follow up-diabetes,htn Williams Burgos is a 47 year old male who presents here today for Above Complaints.. Health Maintenance LDL HPI Since the past month he has been taking his medications, regularly, including the insulin, checking his sugars at least 3 times a day, and they are running in the range of 150 to 240. Previous to this he was in the 400s. He has been eating much better than before. He has not been exercising much. Has been going up down the steps good. He is walking with the walker. BP is well controlled on current regimen of medicines which is tolerated well. No significant side effects Lipids are normal, reviewed test results with patient Who takes medications regularly and has no side effects. No problem-specific Assessment AND Plan notes found for this encounter. PAST MEDICAL HISTORY Diagnosis Date - Bronchitis - Depression - Detached retina - DM type 2, goal HbA1c < 7% (HCC) - GERD (gastroesophageal reflux disease) - Hyperlipidemia - Kidney stones - PNA (pneumonia) - Unspecified essential hypertension - Vitamin D deficiency PAST SURGICAL HISTORY Procedure Laterality Date - CYSTOSCOPY,REMV CALCULUS,COMPLIC 1999 - PAST SURGICAL HISTORY OF Left 2012 AND 2014 removal eye fluid with instillation oil - REMOVAL GALLBLADDER 1998 Cholecystectomy FAMILY HISTORY Problem Relation Age of Onset - Colon Cancer Father 53 - Diabetes Brother 52 - Diabetes Sister - Diabetes Mother 78 - Cancer Brother 49 lung - Diabetes Son Social History Substance Use Topics - Smoking status: Never Smoker - Smokeless tobacco: Current User Types: Snuff Comment: snuff x 33 years - Alcohol use Yes Comment: rarely Past medical history, appointments, medications, allergies reviewed. Pertinent Lab/Diagnostic Studies are reviewed and discussed today Current Outpatient Prescriptions: - tamsulosin ER (FLOMAX) 0.4 mg cp24 - Lancets lancets - blood sugar diagnostic (BLOOD GLUCOSE TEST) test strip - Blood-Glucose Meter monitoring kit - furosemide (LASIX) 20 mg tablet - insulin glargine (LANTUS SOLOSTAR U-100 INSULIN) 100 unit/mL (3 mL) inpn - insulin aspart U-100 (NOVOLOG FLEXPEN U-100 INSULIN) 100 unit/mL inpn - potassium chloride SR (MICRO-K) 10 mEq CR capsule - atenolol (TENORMIN) 100 mg tablet - >Compression Knee Highs 30-40 mm - gabapentin (NEURONTIN) 300 mg capsule - atorvastatin (LIPITOR) 20 mg tablet - Ranitidine HCl (ZANTAC) 300 mg tablet - buPROPion XL (WELLBUTRIN XL) 300 mg 24 hr tablet - amLODIPine (NORVASC) 5 mg tablet - hydroCHLOROthiazide (HYDRODIURIL, ESIDRIX) 25 mg tablet - lisinopril (ZESTRIL, PRINIVIL) 40 mg tablet - aspirin 81 mg chewable tablet - ACETAMINOPHEN ORAL Review of Systems CONSTITUTIONAL: No fevers, chills night sweats, unintended weight loss CARDIOVASCULAR: No chest pain, dyspnea, palpitations, orthopnea, PND, ankle edema. PULM: No dyspnea, unexplained cough. GI: No dysphagia/odynophagia, problematic reflux, constipation, diarrhea, changes in stool habits, hematochezia, melena. : No new urinary complaints, including dysuria, gross hematuria or pyuria. NEURO: No new balance problems, peripheral weakness/paresthesias or numbness of concern. Physical Exam BP 134/70 (BP Site: Left Arm, BP Position: Sitting, BP Cuff Size: Large Adult) Pulse 80 Resp 16 Ht 172.7 cm (5' 8) Wt 95.7 kg (211 lb) SpO2 97% BMI 32.08 kg/m? General appearance: Well appearing, alert, in no acute distress, well nourished. Skin: Skin color, texture, turgor normal, no suspicious rashes or lesions Head: Normocephalic, no masses, lesions, tenderness or abnormalities Eyes: Anicteric sclera. Pupils are equally round and reactive to light. Extraocular movements are intact. Lungs: Lungs clear to auscultation. No wheezing, rhonchi, rales Heart: RRR without murmur, gallop, or rubs. ASSESSMENT/PLAN: 1. Uncontrolled type 2 diabetes mellitus with complication, with long-term current use of insulin (HCC) - ICD9: 250.82, V58.67, ICD10: E11.8, E11.65, Z79.4 (primary diagnosis) Controlled. - Continue current medications 2. Hypertension goal BP (blood pressure) < 140/90 - ICD9: 401.9, ICD10: I10 - good control - Recommended regular aerobic exercise. - Recommend home blood pressure monitoring, to bring results in on next visit - Goal of BP <130/80 3. Diabetic polyneuropathy associated with type 2 diabetes mellitus (HCC) - ICD9: 250.60, 357.2, ICD10: E11.42 Controlled. - Continue current medications 4. Moderate episode of recurrent major depressive disorder (HCC) - ICD9: 296.32, ICD10: F33.1 wellbutrin- 5. Other urinary incontinence - ICD9: 788.39, ICD10: N39.498 On flomax and does not need to self cath himself ANDERSON GASTON MD CNOV Observed: 01/15/2018 Status: COMPLETED Source: [place] 4:40 PM [facility] Office Visit (INTMWS) WILLIAMS BURGOS ([id number]) 1970 M Date Time Provider Department 01/15/18 4:40 PM ANDERSON GASTON INTMWS During your visit today, we recorded the following information about you: Pulse Respiration Blood pressure Weight 80/minute 16/minute 134/70 95.7 kg Height 1.727 m Anderson Gaston 01/15/2018 8:35 PM Signed Reason for Visit Patient presents with: Established Patient: 1 month follow up-diabetes,htn Williams Burgos is a 47 year old male who presents here today for Above Complaints.. Health Maintenance LDL HPI Since the past month he has been taking his medications, regularly, including the insulin, checking his sugars at least 3 times a day, and they are running in the range of 150 to 240. Previous to this he was in the 400s. He has been eating much better than before. He has not been exercising much. Has been going up down the steps good. He is walking with the walker. BP is well controlled on current regimen of medicines which is tolerated well. No significant side effects Lipids are normal, reviewed test results with patient Who takes medications regularly and has no side effects. No problem-specific Assessment AND Plan notes found for this encounter. PAST MEDICAL HISTORY Diagnosis Date - Bronchitis - Depression - Detached retina - DM type 2, goal HbA1c < 7% ([facility]) - GERD (gastroesophageal reflux disease) - Hyperlipidemia - Kidney stones - PNA (pneumonia) - Unspecified essential hypertension - Vitamin D deficiency PAST SURGICAL HISTORY Procedure Laterality Date - CYSTOSCOPY,REMV CALCULUS,COMPLIC 1999 - PAST SURGICAL HISTORY OF Left 2012 AND 2014 removal eye fluid with instillation oil - REMOVAL GALLBLADDER 1998 Cholecystectomy FAMILY HISTORY Problem Relation Age of Onset - Colon Cancer Father 53 - Diabetes Brother 52 - Diabetes Sister - Diabetes Mother 78 - Cancer Brother 49 lung - Diabetes Son Social History Substance Use Topics - Smoking status: Never Smoker - Smokeless tobacco: Current User Types: Snuff Comment: snuff x 33 years - Alcohol use Yes Comment: rarely Past medical history, appointments, medications, allergies reviewed. Pertinent Lab/Diagnostic Studies are reviewed and discussed today Current Outpatient Prescriptions: - tamsulosin ER (FLOMAX) 0.4 mg cp24 - Lancets lancets - blood sugar diagnostic (BLOOD GLUCOSE TEST) test strip - Blood-Glucose Meter monitoring kit - furosemide (LASIX) 20 mg tablet - insulin glargine (LANTUS SOLOSTAR U-100 INSULIN) 100 unit/mL (3 mL) inpn - insulin aspart U-100 (NOVOLOG FLEXPEN U-100 INSULIN) 100 unit/mL inpn - potassium chloride SR (MICRO-K) 10 mEq CR capsule - atenolol (TENORMIN) 100 mg tablet - >Compression Knee Highs 30-40 mm - gabapentin (NEURONTIN) 300 mg capsule - atorvastatin (LIPITOR) 20 mg tablet - Ranitidine HCl (ZANTAC) 300 mg tablet - buPROPion XL (WELLBUTRIN XL) 300 mg 24 hr tablet - amLODIPine (NORVASC) 5 mg tablet - hydroCHLOROthiazide (HYDRODIURIL, ESIDRIX) 25 mg tablet - lisinopril (ZESTRIL, PRINIVIL) 40 mg tablet - aspirin 81 mg chewable tablet - ACETAMINOPHEN ORAL Review of Systems CONSTITUTIONAL: No fevers, chills night sweats, unintended weight loss CARDIOVASCULAR: No chest pain, dyspnea, palpitations, orthopnea, PND, ankle edema. PULM: No dyspnea, unexplained cough. GI: No dysphagia/odynophagia, problematic reflux, constipation, diarrhea, changes in stool habits, hematochezia, melena. : No new urinary complaints, including dysuria, gross hematuria or pyuria. NEURO: No new balance problems, peripheral weakness/paresthesias or numbness of concern. Physical Exam BP 134/70 (BP Site: Left Arm, BP Position: Sitting, BP Cuff Size: Large Adult) Pulse 80 Resp 16 Ht 172.7 cm (5' 8) Wt 95.7 kg (211 lb) SpO2 97% BMI 32.08 kg/m? General appearance: Well appearing, alert, in no acute distress, well nourished. Skin: Skin color, texture, turgor normal, no suspicious rashes or lesions Head: Normocephalic, no masses, lesions, tenderness or abnormalities Eyes: Anicteric sclera. Pupils are equally round and reactive to light. Extraocular movements are intact. Lungs: Lungs clear to auscultation. No wheezing, rhonchi, rales Heart: RRR without murmur, gallop, or rubs. ASSESSMENT/PLAN: 1. Uncontrolled type 2 diabetes mellitus with complication, with long-term current use of insulin (HCC) - ICD9: 250.82, V58.67, ICD10: E11.8, E11.65, Z79.4 (primary diagnosis) Controlled. - Continue current medications 2. Hypertension goal BP (blood pressure) < 140/90 - ICD9: 401.9, ICD10: I10 - good control - Recommended regular aerobic exercise. - Recommend home blood pressure monitoring, to bring results in on next visit - Goal of BP <130/80 3. Diabetic polyneuropathy associated with type 2 diabetes mellitus (HCC) - ICD9: 250.60, 357.2, ICD10: E11.42 Controlled. - Continue current medications 4. Moderate episode of recurrent major depressive disorder (HCC) - ICD9: 296.32, ICD10: F33.1 wellbutrin- 5. Other urinary incontinence - ICD9: 788.39, ICD10: N39.498 On flomax and does not need to self cath himself ANDERSON GASTON MD Referring Provider: SELF [200] Allergies As of Date: 01/15/2018 (No Known Allergies) Date Reviewed: 01/15/2018 Reviewed by: Catalina Lala LPN - Fully Assessed Reason for Visit: Established Patient [175] Cmt: 1 month follow up-diabetes,htn Primary Visit Diagnosis:Uncontrolled type 2 diabetes mellitus with complication, with long-term current use of insulin (HCC) [E11.8, E11.65, Z79.4] Other Visit Diagnoses:Hypertension goal BP (blood pressure) < 140/90 [I10] Diabetic polyneuropathy associated with type 2 diabetes mellitus (HCC) [E11.42] Moderate episode of recurrent major depressive disorder (HCC) [F33.1] Other urinary incontinence [N39.498] Prescriptions as of 01/15/2018 Sig: TAMSULOSIN 0.4 MG CAPSULE Take 1 capsule by mouth daily* LANCETS LANCETS FOR GLUCOSE METER. TE* BLOOD SUGAR DIAGNOSTIC STRIPS TEST BLOOD SUGAR 3 TIMES PER * BLOOD-GLUCOSE METER KIT Glucose Meter of Choice - Kit* FUROSEMIDE 20 MG TABLET Take 1 tablet by mouth twice * INSULIN GLARGINE (U-100) 100 * Inject 60 Units subcutaneousl* INSULIN ASPART U-100 100 UNI* Inject insulin three times da* ATENOLOL 100 MG TABLET Take 1 tablet by mouth once d* COMPOUNDED PRESCRIPTION KNEE HIGH COMPRESSION STOCKIN* GABAPENTIN 300 MG CAPSULE Take 1 capsule by mouth three* ATORVASTATIN 20 MG TABLET Take 1 tablet by mouth at bed* RANITIDINE 300 MG TABLET Take 1 tablet by mouth daily * BUPROPION XL 300 MG 24 HR TAB Take 1 tablet by mouth once d* AMLODIPINE 5 MG TABLET Take 1 tablet by mouth once d* HYDROCHLOROTHIAZIDE 25 MG TAB* Take 1 tablet by mouth once d* LISINOPRIL 40 MG TABLET Take 1 tablet by mouth once d* ASPIRIN 81 MG CHEWABLE TABLET Take 81 mg by mouth once adela* ACETAMINOPHEN ORAL Take by mouth. 1000 mg bid f* Problem List As Of Date 01/15/2018 Noted Resolved Uncontrolled type 2 diabetes mellitus with comp*INVALID FOR* More... Hypertension goal BP (blood pressure) < 140/90 *INVALID FOR* More... HYPERLIPIDEMIA NEC/NOS [E78.5] INVALID FOR* More... DEPRESSIVE DISORDER NEC [F32.9] INVALID FOR* More... ED (erectile dysfunction) [N52.9] INVALID FOR* Lower urinary tract symptoms (LUTS) [R39.9] INVALID FOR* History of kidney stones [Z87.442] INVALID FOR* Microscopic hematuria [R31.29] INVALID FOR* Diabetic polyneuropathy associated with type 2 *INVALID FOR* More... Acute pain of right shoulder [M25.511] INVALID FOR* More... Nausea [R11.0] INVALID FOR* More... Vomiting [R11.10] INVALID FOR* More... Moderate episode of recurrent major depressive *INVALID FOR* Stage 3 chronic kidney disease [N18.3] INVALID FOR* Medications Discontinued During This Encounter potassium chloride SR (MICRO-K) 10 m* 28 c* 1 11/26/2017 01/15/2018 Route: ORAL Sig: Take 1 capsule by mouth twice daily. Disc: Reason for discontinue is not on file. Letter Text Department of Internal Medicine [address] [id number] 01/15/2018 THIS IS A PRESCRIPTION FOR HANDICAPPED PARKING PERMIT Re: Williams Burgos [address] [place] [address] The above named person requires a disability parking placard. DURATION: LIFETIME EXPIRATION: RENEW EVERY 5 YEARS Sincerely, Anderson Gaston MD Encounter Status:Closed by ANDERSON GASTON MD on 01/15/18 [facility] Observed: 01/10/2018 Status: COMPLETED Source: [place] 12:00 AM [facility] REPOSITORY Telephone (INTMWS) WILLIAMS BURGOS ([id number]) 1970 M Date Time Provider Department 01/10/18 ANDERSON GASTON INTMWS During your visit today, we recorded the following information about you: Adam Jovel LPN 01/10/2018 12:12 PM Signed per [employer] / insurance request - freestyle no longer covered . Change to accucheck or true metrix. Will need new orders for meter and supplies. Anderson Gaston 01/13/2018 2:03 PM Signed Can you please find out if the accucheck glucometer is available , is tried to order but glucometer does not pull up. Adam Jovel LPN 01/13/2018 2:49 PM Signed orders pending. Allergies As of Date: 01/10/2018 (No Known Allergies) Date Reviewed: 12/16/2017 Reviewed by: Monik Chinchilla Ma - Fully Assessed Reason for Visit: diabetic supplies [Other] Order(s):Lancets lancetsLANCETS FOR GLUCOSE METER. TEST DIRECTEDDisp: 100 EachRfl: 11 blood sugar diagnostic (BLOOD GLUCOSE TEST) test stripTEST BLOOD SUGAR 3 TIMES PER DAY. DX: 250.E11.9. INSULIN DEP: yesDisp: 100 StripRfl: 11 Blood-Glucose Meter monitoring kitGlucose Meter of Choice - Kit - Dx: Type 2 DM - Controlled E11.9Disp: 1 EachRfl: 0 Prescriptions as of 01/10/2018 Sig: LANCETS LANCETS FOR GLUCOSE METER. TE* BLOOD SUGAR DIAGNOSTIC STRIPS TEST BLOOD SUGAR 3 TIMES PER * BLOOD-GLUCOSE METER KIT Glucose Meter of Choice - Kit* FUROSEMIDE 20 MG TABLET Take 1 tablet by mouth twice * INSULIN GLARGINE (U-100) 100 * Inject 60 Units subcutaneousl* INSULIN ASPART U-100 100 UNI* Inject insulin three times da* POTASSIUM CHLORIDE ER 10 MEQ * Take 1 capsule by mouth twice* ATENOLOL 100 MG TABLET Take 1 tablet by mouth once d* COMPOUNDED PRESCRIPTION KNEE HIGH COMPRESSION STOCKIN* GABAPENTIN 300 MG CAPSULE Take 1 capsule by mouth three* ATORVASTATIN 20 MG TABLET Take 1 tablet by mouth at bed* RANITIDINE 300 MG TABLET Take 1 tablet by mouth daily * BUPROPION XL 300 MG 24 HR TAB Take 1 tablet by mouth once d* AMLODIPINE 5 MG TABLET Take 1 tablet by mouth once d* HYDROCHLOROTHIAZIDE 25 MG TAB* Take 1 tablet by mouth once d* LISINOPRIL 40 MG TABLET Take 1 tablet by mouth once d* ASPIRIN 81 MG CHEWABLE TABLET Take 81 mg by mouth once adela* ACETAMINOPHEN ORAL Take by mouth. 1000 mg bid f* Problem List As Of Date 01/10/2018 Noted Resolved Uncontrolled type 2 diabetes mellitus with comp*INVALID FOR* More... Hypertension goal BP (blood pressure) < 140/90 *INVALID FOR* More... HYPERLIPIDEMIA NEC/NOS [E78.5] INVALID FOR* More... DEPRESSIVE DISORDER NEC [F32.9] INVALID FOR* More... ED (erectile dysfunction) [N52.9] INVALID FOR* Lower urinary tract symptoms (LUTS) [R39.9] INVALID FOR* History of kidney stones [Z87.442] INVALID FOR* Microscopic hematuria [R31.29] INVALID FOR* Diabetic polyneuropathy associated with type 2 *INVALID FOR* More... Acute pain of right shoulder [M25.511] INVALID FOR* More... Nausea [R11.0] INVALID FOR* More... Vomiting [R11.10] INVALID FOR* More... Moderate episode of recurrent major depressive *INVALID FOR* Stage 3 chronic kidney disease [N18.3] INVALID FOR* Prescriptions ordered this encounter Disp Refills Start End LANCETS 100 * 11 01/13/2018 Sig: LANCETS FOR GLUCOSE METER. TEST DIRECTED BLOOD SUGAR DIAGNOSTIC STRIPS 100 * 11 01/13/2018 Sig: TEST BLOOD SUGAR 3 TIMES PER DAY. DX: 250.E11.9. INSULIN DEP: yes BLOOD-GLUCOSE METER KIT 1 Ea* 0 01/13/2018 Sig: Glucose Meter of Choice - Kit - Dx: Type 2 DM - Controlled E11.9 Medications Discontinued During This Encounter blood sugar diagnostic (FREESTYLE LI* 100 * 11 12/17/2017 01/13/2018 Sig: Test blood sugar(s) 3-4 times daily. Dx: Type 2 DM - Uncontrolled E11.65 Insulin: Yes Disc: Reason for discontinue is not on file. Encounter Status:Closed by ADAM JOVEL LPN on 01/13/18 [facility] Observed: 01/01/2018 Status: COMPLETED Source: [place] 4:00 PM [facility] REPOSIT[facility] HNO ID: [id number] Author: Chelsea Andrade Service: (none) Author Type: Registered Nurse Type: Progress Notes Filed: 01/02/2018 12:08 PM Note Text: TRANSITION CARE MANAGEMENT (TCM) FOLLOW-UP NOTE Provider Action/FYI: Pt to have BMP next appt with Health Care Marketing Specialist. Last BUN/Cr on 12/25 is 61/3.1 Patient identified by name and date of : YES Spoke to patient Summary: Feeling much better. Swelling in legs, scrotum all gone. Sugars running 130's. Feeling RAJESH much better. Weighed 250# in hospital. Now weighs 199# at home. Will get labs done at [facility] with Jessica prior to appt with Dr Gaston. He is so excited that he is doing so well and feels so much better. Applauded and encouraged pt to continue. He is still using a walker but has PT/OT and Nsg seeing him to strengthen him. Had BMP last week that indicated BUN/Cr was 61/ 3.1. In the hospital it was a little lower. Concerns: BUN/Cr is actually higher now than at time of D/C from hospital. Will repeat labs when he comes in in 2 wks. 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 Have instructed pt to bring meter to Health Care Marketing Specialist and Dr Gaston appts. Signature Chelsea Andrade structural steel equipment erector Pocketed Spring Machine Operator Internal Medicine [facility] January 01, 2018 CNPTOUTREACH Observed: 01/01/2018 Status: COMPLETED Source: [place] 12:00 AM [facility] REPOSITORY Patient Outreach (INTMWS) LORETTAWILLIAMS ([id number]) 1970 M Date Time Provider Department 01/01/18 CHELSEA SMITH During your visit today, we recorded the following information about you: Chelsea Cottrell RN 01/02/2018 12:08 PM Signed TRANSITION CARE MANAGEMENT (TCM) FOLLOW-UP NOTE Provider Action/FYI: Pt to have BMP next appt with Health Care Marketing Specialist. Last BUN/Cr on 12/25 is 61/3.1 Patient identified by name and date of : YES Spoke to patient Summary: Feeling much better. Swelling in legs, scrotum all gone. Sugars running 130's. Feeling RAJESH much better. Weighed 250# in hospital. Now weighs 199# at home. Will get labs done at appt with Jessica prior to appt with Dr Gaston. He is so excited that he is doing so well and feels so much better. Applauded and encouraged pt to continue. He is still using a walker but has PT/OT and Nsg seeing him to strengthen him. Had BMP last week that indicated BUN/Cr was 61/ 3.1. In the hospital it was a little lower. Concerns: BUN/Cr is actually higher now than at time of D/C from hospital. Will repeat labs when he comes in in 2 wks. 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 Have instructed pt to bring meter to Health Care Marketing Specialist and Dr Gaston appts. Signature Chelsea Andrade structural steel equipment erector Pocketed Spring Machine Operator Internal Medicine [facility] January 01, 2018 Allergies As of Date: 01/01/2018 (No Known Allergies) Date Reviewed: 12/16/2017 Reviewed by: Monik Chinchilla Ma - Fully Assessed Reason for Visit: Pocketed Spring Machine Operator Chronic Care [3612] Prescriptions as of 01/01/2018 Sig: BLOOD SUGAR DIAGNOSTIC STRIPS Test blood sugar(s) 3- 4 times* FUROSEMIDE 20 MG TABLET Take 1 tablet by mouth twice * INSULIN GLARGINE (U-100) 100 * Inject 60 Units subcutaneousl* INSULIN ASPART U-100 100 UNI* Inject insulin three times da* POTASSIUM CHLORIDE ER 10 MEQ * Take 1 capsule by mouth twice* ATENOLOL 100 MG TABLET Take 1 tablet by mouth once d* COMPOUNDED PRESCRIPTION KNEE HIGH COMPRESSION STOCKIN* GABAPENTIN 300 MG CAPSULE Take 1 capsule by mouth three* ATORVASTATIN 20 MG TABLET Take 1 tablet by mouth at bed* RANITIDINE 300 MG TABLET Take 1 tablet by mouth daily * BUPROPION XL 300 MG 24 HR TAB Take 1 tablet by mouth once d* AMLODIPINE 5 MG TABLET Take 1 tablet by mouth once d* HYDROCHLOROTHIAZIDE 25 MG TAB* Take 1 tablet by mouth once d* LISINOPRIL 40 MG TABLET Take 1 tablet by mouth once d* ASPIRIN 81 MG CHEWABLE TABLET Take 81 mg by mouth once adela* ACETAMINOPHEN ORAL Take by mouth. 1000 mg bid f* Problem List As Of Date 01/01/2018 Noted Resolved Uncontrolled type 2 diabetes mellitus with comp*INVALID FOR* More... Hypertension goal BP (blood pressure) < 140/90 *INVALID FOR* More... HYPERLIPIDEMIA NEC/NOS [E78.5] INVALID FOR* More... DEPRESSIVE DISORDER NEC [F32.9] INVALID FOR* More... ED (erectile dysfunction) [N52.9] INVALID FOR* Lower urinary tract symptoms (LUTS) [R39.9] INVALID FOR* History of kidney stones [Z87.442] INVALID FOR* Microscopic hematuria [R31.29] INVALID FOR* Diabetic polyneuropathy associated with type 2 *INVALID FOR* More... Acute pain of right shoulder [M25.511] INVALID FOR* More... Nausea [R11.0] INVALID FOR* More... Vomiting [R11.10] INVALID FOR* More... Moderate episode of recurrent major depressive *INVALID FOR* Stage 3 chronic kidney disease [N18.3] INVALID FOR* Encounter Status:Closed by CHELSEA ANDRADE on 01/02/18 RENAL PROFILE Collected: 12/25/2017 Status: F Source: [place] 11:14 AM [facility] REPOS[facility] TYPE CODE TESTS RESULT OUT OF RANGE REFERENCE UNITS LAB L501.0100 74-106 mg/dL High GLU 292 Result Comment: Glucose result greater than or equal to 200 mg/dL suggests DIABETES MELLITUS per A.D.A. criteria. Please note revised GLUCOSE reference range effective 2017. LAB L501.1000 7-18 mg/dL High BUN 61 LAB L501.1100 0.70-1.30 mg/dL High CREAT,SERUM 3.05 Result Comment: The validity of the calculated GFR AND GFRAA in patients over 70 years has not been determined. Clinical correlation is essential. LAB L501.1110 >60 mL/min Low EST GFR 23 Result Comment: Non- GFR Calc LAB L501.1115 >60 mL/min Low EST GFR - AA 28 Result Comment: GFR Calc LAB L501.1300 10-20 RATIO Normal BUN/CRE 20.0 LAB L501.1800 3.2-5.0 g/dL Low ALB 2.6 LAB L501.2200 8.5-10.1 mg/dL CA Normal 8.7 LAB L501.2300 2.5-4.9 mg/dL Normal PHOS 3.9 LAB L501.5300 136-145 mmol/L NA Normal 138 LAB L501.5600 3.5-5.1 mmol/L K Normal 4.2 LAB L501.5900 98-107 mmol/L CL Normal 102 LAB L501.6100 21.0-32.0 mmol/L Normal CO2 27.0 Performed By: #### L500.3600 #### [facility] [address] [place], [address] VITAMIN D,25 HYDROXY Collected: 12/25/2017 Status: F Source: [place] 11:14 AM [facility] REPOSITORY TYPE CODE TESTS RESULT OUT OF REFERENCE UNITS RANGE LAB L506.1000 29.95-100.01 ng/mL Low Vitamin D 14.3 25-OH Result Comment: Vitamin D 25(OH) Status Range Deficiency <20 ng/mL (50nmol/L) Insuffciency 20 - 30 ng/mL (50 - 75 nmol/L) Sufficiency 30 - 100 ng/mL (75 - 250 nmol/L) Toxicity >100 ng/mL (>250 nmol/L) Performed By: #### L506.1000 #### [facility] [address] [place], [address] EMERGENCY DEPARTMENT Observed: 12/24/2017 Status: F Source: [facility] SUMMARY 4:38 PM [facility] REPOSITORY [facility] Medical Records Department [address] [place] [address] Emergency Department Summary 12/24/17 1220 MR#: [id number] Acct: [id number] Name: WILLIAMS BURGOS Rep #: [id number] : 1970 47 From: Pedro Beck MD PCP: Anderson Gaston MD Status: DEP ER - ER Visit Summary Date of Service: 12/24/17 Patient was seen in the emergency department on December 22 and had a urine culture obtained. This has returned and shows MRSA. He was discharged on Cipro. I called and spoke with the patient. He has had his Sky catheter removed and is doing well. He denies any fever, chills, nausea, or vomiting. The MRSA is sensitive to Bactrim. Discussed with the with the patient and he will be placed on this for the next 10 days. This was called into [facility]. Instructed to follow-up his primary care physician for further evaluation. Return to the emergency department for any worsening symptoms. This note was generated with [employer] dictation software. It may contain incorrect words, spelling, and punctuation that were not noted in review of the chart prior to signing ED Disposition - Plan for ED Patient: Disposition: Home or Assisted Living Chief Complaint: Complaint Instructions: ED UTI Cystitis Male Prescriptions: Ciprofloxacin [Cipro] 250 mg PO BID #14 tab Referrals: Anderson Gaston MD [Primary Care Provider] - Oswald Arriola MD [STAFF PHYSICIAN] - What to do if you have Problems For any increased pain, shortness of breath, bleeding, nausea or vomiting, chest pain, or any unexpected problems, contact your Primary Care Provider. Call [facility] ([phone]) or report to the closest Emergency Room. Call 911 if necessary. 12/24/17 9904 <Electronically signed by Pedro Beck MD> Date Pedro Beck MD Cosigner Signature (If Indicated): Date CC: Anderson Gaston MD DISCHARGE INSTRUCTION Observed: 12/22/2017 Status: F Source: [place] 4:51 PM [facility] REPOSITORY [facility] Medical Records Department [address] [facility] [place] [address] Discharge Instruction 12/22/17 165 MR#: [id number] Acct: [id number] Name: WILLIAMS BURGOS Rep #: [id number] : 1970 47 From: Lg Hinojosa MD PCP: Anderson Gaston MD Status: REG ER ED Disposition - Plan for ED Patient: Chief Complaint: Complaint Instructions: ED UTI Cystitis Male Prescriptions: Ciprofloxacin [Cipro] 250 mg PO BID #14 tab Referrals: Anderson Gaston MD [Primary Care Provider] - Oswadl Arriola MD [STAFF PHYSICIAN] - What to do if you have Problems For any increased pain, shortness of breath, bleeding, nausea or vomiting, chest pain, or any unexpected problems, contact your Primary Care Provider. Call [facility] ([phone]) or report to the closest Emergency Room. Call 911 if necessary. 12/22/171650 <Electronically signed by Lg Hinojosa MD> Date Lg Hinojosa MD Cosigner Signature (If Indicated): Date CC: Anderson Gaston MD EMERGENCY DEPARTMENT Observed: 12/22/2017 Status: F Source: [place] SUMMARY 4:50 PM [facility] REPOSITORY [facility] Medical Records Department [address] [facility] [place] [address] Emergency Department Summary 12/22/17 1648 MR#: [id number] Acct: [id number] Name: WILLIAMS BURGOS Rep #: [id number] : 1970 47 From: Lg Hinojosa MD PCP: Anderson Gaston MD Status: REG ER - ER Visit Summary Date of Service: 12/22/17 Chief Complaint: Cloudy urine History of Present Illness: The patient is a 47 M who presents with cloudy urine. He was recently admitted for anasarca and nephrotic syndrome. A Sky had been placed while he was being diuresed. After the Sky was removed he failed a voiding trial and was discharged with a Sky and has an appointment with urology tomorrow. Today he noticed that the urine was cloudy he otherwise has no complaints. Physical Examination: Afebrile vitals are stable Heart regular rate and rhythm Lungs are clear Abdomen soft Alert Urine in the Sky does appear very cloudy Test Results: UA shows 500 leukocyte esterase positive nitrates and greater than 100 WBCs. Emergency Department Course and Treatment: The catheter was changed. We discussed just removing it today for a voiding trial but he asked that we just change it so that he can see urology tomorrow and defer on any further decisions regarding discontinuing the Sky. Prescribed Cipro. He understands to return for new or worsening symptoms and was instructed on specific signs and symptoms to monitor for. Treatment Plan: [] Disposition: Discharge Impression: Sky change UTI This note was generated with [employer] dictation software. It may contain incorrect words, spelling, and punctuation that were not noted in review of the chart prior to signing ED Disposition - Plan for ED Patient: Chief Complaint: Complaint Referrals: Anderson Gaston MD [Primary Care Provider] - What to do if you have Problems For any increased pain, shortness of breath, bleeding, nausea or vomiting, chest pain, or any unexpected problems, contact your Primary Care Provider. Call [employer] [facility] ([phone]) or report to the closest Emergency Room. Call 911 if necessary. 12/22/17 1650 <Electronically signed by Lg Hinojosa MD> Date Lg Hinojosa MD Cosigner Signature (If Indicated): Date CC: Anderson Gaston MD URINALYSIS, COMPLETE Collected: 12/22/2017 Status: F Source: [place] 2:40 PM [facility] REPOSITORY Order Comment: How was Urine Obtained? [employer] AIR CONDITIONING INSTALLER TO SPECIFY TYPE CODE TESTS RESULT OUT OF RANGE REFERENCE UNITS LAB L400.3000 Yellow COLOR Normal Yellow LAB L400.3050 Clear Normal CLARITY Cloudy LAB L400.3200 Normal mg/dl High GLUCOSE, UR 250 LAB L400.3300 Negative mg/dL Normal BILIRUBIN URINE Negative LAB L400.3400 Negative mg/dl High 5 KETONE UR LAB L400.3465 1.002-1.030 Normal SP.GR. DIPSTX 1.020 LAB L400.3550 5.0 - 8.0 pH UR Normal 6.0 LAB L400.3600 Negative mg/dl High PROT DIPSTX 500 LAB L400.3700 Normal mg/dl High 1 UROBILI LAB L400.3750 Negative High NITRITE UR Positive LAB L400.3780 Negative /ul High OCCULT BLOOD-UR 250 LAB L400.3800 Negative /ul High LEUK ESTERASE 500 LAB L400.4050 0-5 /hpf WBC Normal >100 SEEN LAB L400.4100 0-5 /hpf Normal RBC-UA 0-5 SEEN LAB L400.4150 0-5 /hpf SQUAM Normal EPI 5-10 SEEN LAB L400.4300 None Seen /hpf 2+ Normal BACTERIA LAB L400.4350 <or=2+ /hpf 0 Normal MUCUS, URINE SEEN Performed By: #### L400.0001 #### [facility] [address] [place], [address] Observed: 12/22/2017 Status: F Source: [place] CULTURE, URINE 2:40 PM [facility] REPOSITORY Urine Culture RESULTS FAXED TO [employer] 12/24/17 0846 Dasha Bernardo. Copy of report sent to Infection Control Printer [id number] 12/24/17 0848 BEN. ORGANISM 1: Meth. resistant Staph. aureus Welda Count >100,000 Meth. resistant Staph. aureus: REACTION Benzylpenicillin NF >=0.5 R Cefoxitin *NF + Inducable Clindamycin Resistan - Gentamicin $ <=0.5 S Levofloxacin $ 0.25 S Linezolid $$$$ 2 S Oxacillin NF >=4 R Rifampin $$ <=0.5 S Tetracycline NF >=16 R Trimethoprim/Sulfametho $ <=10 S Vancomycin $ <=0.5 S (NF) indicates non-formulary drug at [facility]. Approval by Infectious Disease Specialist required before non-formulary drugs may be ordered and/or dispensed. * CLSI guidelines does not recommend testing of cephalosporins. This interpretation is deduced from Beta-lactam/penicillin results. Performed By: #### [id number] #### [facility] [address] [place], [address] PROGRESS Observed: 12/19/2017 Status: COMPLETED Source: [place] 6:15 AM [facility] REPOSITORY [facility] ID: [id number] Author: Maranda Bell Service: (none) Author Type: (none) Type: Progress Notes Filed: 01/18/2018 3:34 AM Note Text: December 19, 2017 The medical record was reviewed to determine if the proposed sleep study conforms to the AASM Practice Parameters for the Indications for Polysomnography and Related Procedures, or if the sleep study is indicated for other reasons. Indications for study: LUANNE suspected with comorbid medical or sleep disorders: Heart failure or other [id number]-[id number] cardiac disease Sleep study to be performed: Split Study-Polysomnogram with PAP titration Special instructions: Split night study if AHI > 15. Start with 5 cmH2O then titrate per protocol Add ETCO2 and TCPCO2 if available Encourage supine and habitual sleep position Maranda Hess I have read the above protocol, edited as needed, and agree to the plan Octaviano Ruiz III, PhD, [facility] ENDOCRIN[facility]Y VISIT Observed: 12/18/2017 Status: F Source: [place] RE[place] 8:42 AM [facility] REPOSITORY [facility] [address] [place] [address] OFFICE VISIT Date of Service: 12/17/17 MR#: [id number] Acct: [id number] Name: WILLIAMS BURGOS Rep #: [id number] : 1970 Provider: Norah Adams NP Age/Sex: 47/M Location: [facility] Status: Signed HPI History of present illness Williams Burgos is a 47 year old male who presents for consult of diabetes type 2. Diagnosed in 1990. Recently discharged from hospital after treatment for CHF and chronic renal failure. Is accompanied by his . Presents in wheelchair States insulin adjusted in hospital. Currently taking lantus 34 units daily and meal insulin 4 units per meal. Checked his BG yesterday and today with his readings in the 200+ range. Pt denies difficulty with injections or self monitoring of BG. Denies any signs of infection or irritation at site of injections. Reports taking insulin as directed He has been trying to follow his low protein diet. States he is still with edema in his lower legs and his groin area. Has indwelling catheter due to inability to void on discharge from hospital. Is being followed by urology. At time of visit: -Pt denies symptoms of hypertensive emergency (CP,SOB,VELASCO, or blurred vision) and hypotension(dizziness or lightheadedness) -Pt denies symptoms of hypoglycemia ( sweaty, confusion, anxiety, tremor, hunger, palpitations) and hyperglycemia ( polydipsia, polyuria) -Pt denies potential medication adverse effect. Hypoglycemia Aware of hypoglycemia: When awake Able to self treat low BG: Yes Frequent low Blood sugar: No Has supply of glucagon: No Diet 3 meals No carb counting Low protein diet SMBG Average > 200 Checks BG before meals when he is checking Has a sliding scale but unable to recall. Type: type 2, insulin-requiring Glucose control symptoms: Reports high fasting glucose and high post-meal glucose Weight and fatigue symptoms: Denies snoring Cardiopulmonary symptoms: Denies chest pain at rest, dyspnea on exertion, lightheadedness or myalgias GI symptoms: Reports nausea/dyspepsia and vomiting; denies constipation or diarrhea Skin and extremity symptoms: Reports tingling/numbness/burning; denies erectile dysfunction Other symptoms: Denies blurry vision or change in vision Pertinent visit history: Reports recent hospital admission Self monitoring: Yes Sick day education - understands ketone testing: No Physical activity: wheelchair-bound Exam Const General: comfortable Nutritional Appearance: average body habitus Orientation: oriented x3 HENMT Head: normal to inspection, normocephalic Ears: hearing grossly normal bilaterally Mouth: oral mucosae normal, moist mucous membranes Eyes Eyelids: eyelid abnormality (left) left upper eyelid Sclera: sclerae normal Neck Neck: normal visual inspection Resp Effort AND Inspection: normal respiratory effort, symmetric chest movement, able to speak in complete sentences Cardio Rate: regular rate Rhythm: regular rhythm Heart Sounds: S1 normal, S2 normal GI Inspection: normal to inspection Auscultation: normal bowel sounds Skin General: excoriation Diabetic Foot Monofilament test: Left foot: abnormal, Right foot: abnormal Neuro General: moves all extremities Cognition: normal cognition Speech: speech normal Extrem General: edema (1+ pitting edema lower legs) Psych Mental Status: mental status grossly normal Mood: congruent mood Affect: normal affect Speech and Movement: speech and movement normal Attitude: cooperative Thought Process: normal Thought Content: normal Intake Vital Signs12/17/17 Height 5 ft 8 in 12/17/17 Weight: 215 lb 12/17/17 Body Mass Index (BMI) 32.6 12/17/17 Blood Pressure 118/71 12/17/17 Blood Pressure Location Lt popliteal 12/17/17 Blood Pressure Position Sitting Intake Visit Reasons: HOSP F/U, Diabetes Mellitus Type 2 Office Inspector Required: No Accompanied by: Family / Other Is patient in pain?: No Allergies No Known Allergies Allergy (Verified 12/17/17 10:03) Medications Gabapentin [Neurontin] 300 mg PO TIDCM 07/15/13 [History Confirmed 12/17/17] Bupropion HCl [Wellbutrin Xl] 300 mg PO DAILY 05/06/17 [History Confirmed 12/17/17] Aspirin 81 mg PO DAILY 11/19/17 [History Confirmed 12/17/17] Atorvastatin Calcium [Lipitor] 20 mg PO QHS 11/19/17 [History Confirmed 12/17/17] Atenolol [Tenormin (beta elizabeth)] 100 mg PO DAILY 11/28/17 [History Confirmed 12/17/17] Psyllium [Metamucil] 1 packet PO DAILY PRN PRN packet 12/05/17 [Rx Confirmed 12/17/17] Albuterol Inhaler [Ventolin Hfa] 2 puff INHALATION Q4H PRN PRN #1 inhaler 12/06/17 [Rx Confirmed 12/17/17] Tamsulosin HCl [Flomax] 0.4 mg PO BID@0830,1730 12/10/17 [History Confirmed 12/17/17] Furosemide [Lasix] 60 mg PO BIDLX #90 tab 12/14/17 [Rx Confirmed 12/17/17] acetaminophen 500 mg tablet 1,000 mg PO QDAY tab 12/17/17 [History Confirmed 12/17/17] insulin aspart U-100 100 unit/mL subcutaneous pen 4 unit SC TID ml 12/17/17 [History Confirmed 12/17/17] insulin glargine (U-100) 100 unit/mL (3 mL) subcutaneous pen 34 unit SC QHS ml 12/17/17 [History Confirmed 12/17/17] Nurse's Note: blood sugars : low : 34 high : 336 PFSH Medical History Retention, urine (Acute) Acute on chronic diastolic CHF (congestive heart failure) (Acute) Acute hypoxemic respiratory failure (Ruled-out) Hypoglycemia (Acute) Acute respiratory failure with hypoxia (Ruled-out) Obesity (BMI 30-39.9) (Chronic) Noncompliance (Chronic) Diabetic neuropathy (Chronic) Diabetic nephropathy (Chronic) Diabetic retinopathy (Chronic) HTN (hypertension) (Chronic) HLD (hyperlipidemia) (Chronic) Blind left eye (Chronic) Diabetes mellitus type II, uncontrolled (Chronic) Anxiety and depression (Chronic) GERD (gastroesophageal reflux disease) (Chronic) Chewing tobacco nicotine dependence (Chronic) ILDA (acute kidney injury) (Ruled-out) Right leg pain (Resolved) Chronic ulcer of 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 (Resolved) Cellulitis and abscess of right leg (Resolved) History of acute myocardial infarction (Chronic) Kidney failure (Acute) Kidney stones (Acute) Pneumonia (Acute) Vision problems (Acute) Hypertensive emergency (Resolved) Hypokalemia (Resolved) Surgical History History of eye surgery (Chronic) History of cholecystectomy (Resolved) Family History Mother Heart disease Hypertension Father Cancer Brother Cancer Diabetes Sister Diabetes Social History Smoking Status: Never smoker second hand exposure: No alcohol intake: never substance use type: does not use ROS Const Constitutional: No anorexia, body ache, chills, fatigue, fever(s), frequent falls, decreased energy, malaise, night sweats, weakness, weight change, sleep problems, abnormal sleep pattern, change in appetite, other, headache(s), snoring or excessive sweating Eyes Eyes: Positive for other (eye exam 11/24); no blurry vision, change in vision, double vision, discharge, dry eyes, bulging eyes, floaters, visual disturbances, eye pain, light sensitivity, spots in vision or tunnel vision ENT ENT: No abnormal hearing, ear pain, ear discharge, ear pressure, hearing loss, tinnitus, dizziness/vertigo, balance problems, nosebleed/epistaxis, nasal congestion, nasal obstruction, nose pain, sinus pressure, sinus pain, nasal discharge, post nasal drip, headache(s), facial pain, dental pain, dry mouth, bad breath, hoarseness, lip swelling, mouth lesions, mouth pain, sore throat, tongue swelling, throat swelling, other, difficulty swallowing or neck pain Resp Respiratory: No cough, change in phlegm color, chest congestion, excessive phlegm production, hemoptysis, pain on inspiration, shortness of breath, pain with cough, snoring, stridor, wheezing or other Cardio Cardiology: No chest pain at rest, chest pain with exertion, leg pain with exertion, excessive sweating, shortness of breath, dyspnea on exertion, generalized swelling, irregular heart rhythm, lightheadedness, orthopnea, radiating jaw, neck or arm pain, fast heart rate, slow heart rate, palpitations or other Gastro GI: Positive for abdominal pain, heartburn, nausea/dyspepsia and vomiting; no belching, bloating, change in bowel habits, change in stool character, coffee ground emesis, constipation, cramping, diarrhea, difficulty swallowing, feeling full early, excessive flatus, incontinent of stools, Vomiting blood/hematemesis, blood in stool, loose stools, Black,tarry stools, pain with swallowing or other Genitourinary Male: No difficulty urinating, burning urination, painful urination, urinary incontinence, urinary frequency, urinary urgency, urinary hesitancy, urinary retention, blood in urine, Frequent nighttime urination/ nocturia, post void dribbling, suprapubic fullness, side pain, sexual problems, genital lesions, genital itching, erectile dysfunction, penile discharge, difficulty with ejaculations, blood in semen, scrotal swelling, testicle lump, testicle pain or other Musc Musculoskeletal: No abnormal walking, joint pain, back pain, deformity, joint swelling, limited range of motion, loss of height, muscle cramps, muscle weakness, decreased muscle mass, body aches, neck pain, numbness, radiating pain into limb, stiffness, tingling or other Skin Skin: No acne, hair loss, change in hair, nail changes, boil, change in skin color, dry skin, redness, excessive hair growth, yellowing of the skin, lesions, itching, rash, skin pain, skin ulcer, sores, skin swelling, wounds or other Breast Breast: No other Neuro Neurology: No frequent falls, weakness, visual disturbances, abnormal hearing, headache(s), abnormal walking, numbness or tingling Psych Psychiatric: No abnormal sleep pattern, No change in appetite Endo Endocrine: No fatigue, other or excessive sweating Aller/Imm Allergy/Immunologic: No lip swelling, tongue swelling, throat swelling, wheezing or itchy eyes Assessment AND Plan Problems 1. Chronic renal failure, stage 4 (severe) N18.4 2. Uncontrolled type 2 diabetes mellitus with stage 3 chronic kidney disease, with long-term current use of insulin E11.22 Plan Check BG in pairs, before meal and 2 hours after. Count carb content of meal and log. Continue low protein diet Bring sliding scale with you. RTC 2 weeks Medications Discontinued: insulin aspart U- Discontinued Reason: Order Changed insulin glargine (U-100) Discontinued Reason: 35 multiple units (0.35 mL) Sub-Q QHS DM Order Changed Plan Detail Additional Comments 1. Please schedule follow up in 3 months. 2. Lab work one week before appointment. 3. Discussed importance of regular exercise and recommend starting or continuing a regular exercise program for good health. 4. The patient was encouraged to lose weight for good health 5. The importance of monitoring blood sugar regularly was reviewed. 6. The importance of monitoring the HBA1c level regularly was reviewed. 7. The importance of prper foot care and regularly checking feet to prevent sores and loss of limbs was reviewed. 8. The importance of keeping BP at or below 130/80 to prevent stroke, heart attacks, kidney failure, blindness was reviewed. Spent approximately 60 minutes with patient with over 50% of time spent in discussion and counseling regarding medication adjustment, symptoms and treatment of hypoglycemia, diet adherence, and checking BG before leaving home. 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 1. Little interest or pleasure in doing things: several days 2. Feeling down, depressed, or hopeless: more than half the days Total score: 3 If score is 2 or greater, continue 3. Trouble falling or staying asleep, or sleeping too much: nearly every day 4. Feeling tired or having little energy: nearly every day 5. Poor appetite or overeating: not at all 6. Feeling bad about yourself - or that you are a failure or have let yourself and your family down: nearly every day 7. Trouble concentrating on things, such as reading the newspaper or watching television: not at all 8. Moving or speaking so slowly that other people could have noticed? - Or the opposite - being so fidgety or restless that you have been moving around a lot more than usual: not at all 9. Thoughts that you would be better off or of hurting yourself in some way: nearly every day Total score: 15 If you checked off any problems, how difficult have these problems made it for you to do your work, take care of things at home, or get along with other people?: not difficult at all Source: Developed by Drs. Satish Bowens, Nyla Dow, Manuel Reed and colleagues, with an educational jennifer from [employer]. Scoring: Total Score Depression Severity Action 1-4 Minimal depression No action needed 5-9 Mild depression Repeat PHQ-9 at follow up 10-14 Moderate depression Make tx plan,consider counseling, fup, prescription 12/18/17 0842 <Electronically signed by Norah INTERIANO> Date Norah INTERIANO Cosigner Signature: Date (if applicable) CC: PROGRESS Observed: 12/17/2017 Status: COMPLETED Source: [place] 7:56 AM [facility] ID: [id number] Author: Radha De Luna Service: (none) Author Type: (none) Type: Progress Notes Filed: 01/18/2018 3:34 AM Note Text: December 17, 2017 An order has been received for Polysomnogram (PSG) from Dr. Irma Villa APRN.EUGENIO Naik. [facility] Staff. Visit prep complete. Comments :No The sleep study is scheduled for 01/03. Insurance: Payor: [employer] MEDICARE / Plan: [employer] CHOICE PPO / Product Type: PPO / Makedata Kunal Edouard DISCHARGE SUMMARY Observed: 12/17/2017 Status: F Source: [place] 6:02 AM [facility] REPOSIT[facility] Medical Records Department [address] [place] [address] Discharge Summary 12/14/17 1900 MR#: [id number] Acct: [id number] Name: WILLIAMS BURGOS Rep #: [id number] : 1970 47 From: Anitha Fang DO PCP: Anderson Gaston MD Status: DIS IN Y [id number] Date and Diagnosis Date of Admission: 12/10/17 Date of Discharge: 12/14/17 - Primary Discharge Diagnosis Active and Suspected Problems Anasarca associated with disorder of kidney (Acute) Autonomic neuropathy (Suspected) Acute on chronic diastolic CHF (congestive heart failure) (Acute) Hypoglycemia (Acute) resolved in ED - Secondary Discharge Diagnosis Chronic Problems Anemia of chronic renal failure, stage 4 (severe) (Chronic) Chronic renal failure, stage 4 (severe) (Chronic) Obesity (BMI 30-39.9) (Chronic) Noncompliance (Chronic) Diabetic neuropathy (Chronic) Diabetic nephropathy (Chronic) Diabetic retinopathy (Chronic) HTN (hypertension) (Chronic) HLD (hyperlipidemia) (Chronic) Blind left eye (Chronic) Diabetes mellitus type II, uncontrolled (Chronic) Anxiety and depression (Chronic) GERD (gastroesophageal reflux disease) (Chronic) Chewing tobacco nicotine dependence (Chronic) History of acute myocardial infarction (Chronic) Nephrotic S. Hospital Course and Treatment Imaging Results: Clinical Impression(s) from Imaging Studies Chest X-Ray 12/10/17 17:10 IMPRESSION: Moderate pulmonary vascular congestion which is worse when compared with the prior exam. Small bilateral pleural effusions. Stable mild cardiomegaly. Electronically Signed: Torres Islas, at 18:02 EDT Tel , Service support , Dr. Loida Montiel-nephrology Operations: None Procedures: None Summary of Care Provided: Patient is a 47-year-old male with a past medical history of diastolic congestive heart failure, left ventricular hypertrophy, diabetes mellitus type 2, diabetic nephropathy, nephrotic syndrome, diabetic neuropathy, diabetic retinopathy, obesity, noncompliance with diet and medications, hypertension, hyperlipidemia, anxiety/depression, GERD, Bacot dependence (chewing tobacco), chronic renal failure stage III and urine retention who was sent to the ED by his doctor for scrotal edema and SOB. At presentation to the emergency room he was afebrile with a heart rate of 66, blood pressure of 135/94, respiratory rate 18 and he was 96% saturated on room air. Creatinine was 2.7 which is within the range of creatinines over the past month. BNP was 366.8, lactic acid was 1.1, glucose was 40 and troponin was less than 0.02. UA had 5-10 white blood cells and greater than 100 red blood cells with no bacteria seen. Chest x-ray showed pulmonary vascular congestion. Ejection fraction on a recent echocardiogram was 65% and the PA systolic could not be estimated secondary to technically difficult study. He was admitted to PCU with a dx of Acute on chronic diastolic CHF and started on a continuous Lasix infusion. Amlodipine was discontinued due to the side effect of peripheral edema. Dr. Loida Montiel was consulted. Serial renal profiles were followed while on Lasix infusion and he diuresed quite well. Fluid balance at [place] was -20,472. His weight decreased from 246 lbs and 14 ounces at admission to 218 and 14 ounces at [place]. Adjustments were made to the insuling dosing and prior to DC the BS's were all less than 200. His insulin requirement in the hospital is considerably less than at home. Recently his has been preparing all his meals and his blood sugars have improved at home. He has been hypoglycemic at times. She requested education on diet and I referred her to the diabetic clinic run by the dieticians. On the date of discharge the serum bicarb was 35 and the BUN was 52 with a creatinine of 2.82 which was stable. On physical exam the lungs were CTA and the peripheral edema was much improved. He still had edema of the scrotum and the foreskin and he was provided with a scrotal support prior to DC. He was advised that wearing compression stockings anytime his legs were dependent would aid in controlling peripheral edema. The insulin regimen at discharge included Lantus 35 units subcu nightly, NovoLog 4 units subcu 3 times daily with meals and a sliding insulin scale. He was discharged on 60 mg of Lasix twice daily. He will follow up with Dr. Gaston in 5- [address] Loida Montiel in 2 weeks. A voiding trial was done prior to discharge and the patient was unable to void even with greater than 600 cc of urine in the bladder. The Sky was reinserted and he will follow up with Dr. Arriola. His related that she was shown 1 time in the office how to do a self cath but she never attempted this and she would like additional education and also to be monitored at least once while performing the procedure. She was referred to Dr. Arriola's office. The patient was given literature at [place] re: HD, AV fistula placement, nephrotic S. and an 1800 calorie Myplate worksheet. They have an appt with Norah Adams to help with getting the BS's controlled. This note was generated with [employer] software. It may contain incorrect words, spelling, and punctuation that were not noted in checking the note before signing. Keep extremity elevated above heart level: Legs Call your doctor if you observe: Fever of 101 or Higher, Shortness of breath, Dizziness, Fainting spells, - - increased swelling of the abdomen, legs or scrotum Home Medications: Medications to take at Discharge Gabapentin [Neurontin] 300 mg PO TIDCM 07/15/13 Bupropion HCl [Wellbutrin Xl] 300 mg PO DAILY 05/06/17 Aspirin 81 mg PO DAILY 11/19/17 Atorvastatin Calcium [Lipitor] 20 mg PO QHS 11/19/17 Atenolol [Tenormin (beta elizabeth)] 100 mg PO DAILY 11/28/17 Insulin Aspart [Novolog Flexpen] See Protocol SC ACHS flexpen 12/05/17 Psyllium [Metamucil] 1 packet PO DAILY PRN PRN packet 12/05/17 Albuterol Inhaler [Ventolin Hfa] 2 puff INHALATION Q4H PRN PRN #1 inhaler 12/06/17 Tamsulosin HCl [Flomax] 0.4 mg PO BID@0830,1730 12/10/17 Furosemide [Lasix] 60 mg PO BIDLX #90 tab 12/14/17 Insulin Aspart [Novolog Flexpen] 4 units SC TIDCM #1 flexpen 12/14/17 Insulin Glargine [Lantus SoloStar Pen] 35 units SC QHS #0 12/14/17 Following Prescrptions Were Given to Patient: Furosemide [Lasix] 60 mg PO BIDLX #90 tab Primary Care Physician: Anderson Gaston MD [Primary Care Provider] - Please follow up with your Primary Care Physician in: 5-7 days Please Follow Up With: Loida Montiel DO When: 2 weeks Please Follow Up With: Oswald Arriola MD When: as needed. Please Follow Up With: [facility] When: within the month Please Follow Up With: diabetic clinic When: [facility] for instruction on diet. Patient Instructions: Arteriovenous (AV) Fistula for Dialysis, Hemodialysis, MyPlate Worksheet: 1,800 Calories, ED Nephrotic Syndrome Disposition: Home Minutes spent on discharge:: 40 Patient Condition:: Stable Medical Necessity - Tobacco Use Smoking Status: Never smoker Meaningful Use Info Meaningful Use Diagnoses (Choose all that apply): CHF - CHF TOM/ARB ordered at discharge?: No Reason TOM/ARB not ordered?: Worsening renal dysfunctn Documented LVEF (%): 65 Code Visit Inpatient LUCIA: 83725 Disch Hosp 12/17/17 0602 <Electronically signed by Anitha Fang DO> Date Anitha Fang DO Cosigner Signature (if applicable): Date CC: Norah Adams NP; Tammie Fang; Anderson Gaston MD; Loida Montiel DO; Oswald Arriola MD Signed PROGRESS Observed: 12/16/2017 Status: COMPLETED Source: [place] 4:07 PM [facility] ID: [id number] Author: Irma (Content Designer) [place] Service: (none) Author Type: Nurse Practitioner Type: Progress Notes Filed: 12/17/2017 10:57 AM Note Text: CC: Patient presents with: Recheck: Hospital follow up HPI Williams Burgos is a 47 year old male who presents today with significant other and daughter for [facility] follow up. Patient was originally admitted from 11/28- 12/06/17 for acute respiratory failure secondary to chronic diastolic CHF/pulmonary HTN, ILDA, Urinary retention with indwelling sky catheter and nephrotic range proteinuria. Patient was discharged home with [facility]. Recommended patient have PFT and sleep study. Follow up scheduled with Dr. Cabral, (PFT) and LETTY Adams NP. Patient was sent home on Albuterol inhaler PRN, Lantus 40 units at bedtime, Flomax, Lasix BID and Novalog 15 units TID. Patient was to follow up with Urology for catheter removal on 12/10/17. Patient presented to urology appointment for catheter removal and scrotal edema, had catheter removed and instructed to self catheterize TID and elevated scrotum. At the end of the patient's visit with urology he was noted to be somewhat confused, pale and clammy. Patient was taken to the ER where he was found to be hypoglycemic at 34. He was again admitted on 12/10/17 for hypoglycemia, CHF with fluid overload and hypoxia. Patient was discharged on 12/14/17 home with [facility]. Nurse is coming to the house three times per week. Was receiving PT prior his last hospital admission, [facility] nurse is going to reinstate PT. It was indicated prior to patient's discharge he will be requiring dialysis in the near future. He has an appointment with on 12/23/17 to discuss planning. Since discharge patient reports he is feeling well. Notes that is energy level and ambulation is improving. Patient's significant other indicates that they, as a family, have made significant dietary changes to follow a renal, low sodium and diabetic diet. CHF. Mr. Burgos states that his breathing ability and energy level is better since discharge. He has dyspnea with ADL's and scrotal edema is improving. Pedal edema improved, currently wearing compression stockings. Patient currently has indwelling urinary catheter, he has Urology follow up in 9 days where a decision will be made regarding removal. He can walk room to room then becomes dyspneic. He sleeps semiupright in reclining chair for orthopnea. Patient denies chest pain, palpitations, lightheadness, syncope and right upper quadrant tenderness. Williams Burgos's appetite is good on a low salt, renal, diabetic diet. Last Echo EF: LV Ejection Fraction (%) Date Value 05/10/2017 55 DIABETES MELLITUS:Since hospital discharge denies excessive thirst or increased frequency of urination, chest pain or dyspnea , numbness, tingling or pain in extremities, new or unusual visual symptoms, low sugar/hypoglycemic reactions, weight loss/gain, lightheadedness/dizziness and bowel changes/loose stools. Follows a diabetic diet all of the time. He is compliant with medication(s) and is tolerating med(s) without any side effects. He reports checking his glucose on a three to four times a day schedule with sugars in the <200 range. Patient's last HgA1C was Hemoglobin A1C (%) Date Value 11/19/2017 10.9 05/03/2017 11.7 09/07/2016 12.1 ) LUANNE: Per hospital admission records, Sleep study was recommend as patient is believed to have LUANNE. Patient reports a history of LUANNE without a BiPAP or CPAP machine. Significant other reports extreme loud snoring and moments of apnea. Consult was not placed on discharge. REVIEW OF SYSTEMS General: no fevers, no chills, no night sweats, no recurrent infections, no change in appetite, no change in energy and no significant changes in weight HEENT: no frequent or significant headaches, no changes in hearing, no visual changes, no nose bleeds, no sinus or nasal problems Neck: no lumps, no pain and no swelling Respiratory: no cough, no wheezing, no hemoptysis, See HPI Cardiovascular: no chest pain, no chest pressure and no palpitations. See HPI GI: No nausea, vomiting, or diarrhea : indwelling catheter. Denies hematuria, clots or foul smelling urine. Endocrine: no fatigue, no weight gain, no weight loss, no hair loss, no dry skin, no cold intolerance, no heat intolerance, no neck pain/pressure, no polyuria, no polyphagia and no polydipsia Neurologic: No headache, weakness, numbness, tingling, neck stiffness, tremor, vertigo, dizziness, memory loss, syncope. PAST MEDICAL HISTORY Diagnosis Date - Bronchitis - Depression - Detached retina - DM type 2, goal HbA1c < 7% ([facility]) - GERD (gastroesophageal reflux disease) - Hyperlipidemia - Kidney stones - PNA (pneumonia) - Unspecified essential hypertension - Vitamin D deficiency PAST SURGICAL HISTORY Procedure Laterality Date - CYSTOSCOPY,REMV CALCULUS,COMPLIC 1999 - PAST SURGICAL HISTORY OF Left 2012 AND 2014 removal eye fluid with instillation oil - REMOVAL GALLBLADDER 1998 Cholecystectomy ALLERGIES Review of patient's allergies indicates no known allergies. MEDICATIONS insulin glargine (LANTUS SOLOSTAR U-100 INSULIN) 100 unit/mL (3 mL) inpn Inject 60 Units subcutaneously every evening. insulin aspart U-100 (NOVOLOG FLEXPEN U-100 INSULIN) 100 unit/mL inpn Inject insulin three times daily at first bite of food. Take 15 units with each meal furosemide (LASIX) 20 mg tablet Take 1 tablet by mouth once daily. potassium chloride SR (MICRO-K) 10 mEq CR capsule Take 1 capsule by mouth twice daily. atenolol (TENORMIN) 100 mg tablet Take 1 tablet by mouth once daily. >Compression Knee Highs 30-40 mm KNEE HIGH COMPRESSION STOCKINGS, 30-40 MM, I DX: EDEMA gabapentin (NEURONTIN) 300 mg capsule Take 1 capsule by mouth three times daily for 30 days. atorvastatin (LIPITOR) 20 mg tablet Take 1 tablet by mouth at bedtime as needed. Ranitidine HCl (ZANTAC) 300 mg tablet Take 1 tablet by mouth daily before dinner. buPROPion XL (WELLBUTRIN XL) 300 mg 24 hr tablet Take 1 tablet by mouth once daily. amLODIPine (NORVASC) 5 mg tablet Take 1 tablet by mouth once daily. Indications: hypertension hydroCHLOROthiazide (HYDRODIURIL, ESIDRIX) 25 mg tablet Take 1 tablet by mouth once daily. lisinopril (ZESTRIL, PRINIVIL) 40 mg tablet Take 1 tablet by mouth once daily. Indications: hypertension aspirin 81 mg chewable tablet Take 81 mg by mouth once daily. ACETAMINOPHEN ORAL Take by mouth. 1000 mg bid for pain / aches FAMILY HISTORY Problem Relation Age of Onset - Colon Cancer Father 53 - Diabetes Brother 52 - Diabetes Sister - Diabetes Mother 78 - Cancer Brother 49 lung - Diabetes Son Social History Substance Use Topics - Smoking status: Never Smoker - Smokeless tobacco: Current User Types: Snuff Comment: snuff x 33 years - Alcohol use Yes Comment: rarely PHYSICAL EXAM BP 124/72 Pulse 71 Temp 36.6 ?C (97.8 ?F) (Temporal Artery) Resp 16 Wt 96.2 kg (212 lb) SpO2 100% BMI 32.23 kg/m2 General Appearance: well appearing, in no acute distress, alert Skin: Dusky in Color, without evidence of rash or lesions. Head: normocephalic, atraumatic Eyes: conjunctiva pink and moist, no icterus, sclera white, non-injected Lungs: Lungs clear to auscultation. No wheezing, rhonchi, rales Heart: RRR without murmur, gallop, or rubs. No ectopy Ext: trace LE edema, good distal pulses- patient wearing compression stockings : sky catheter maintained, dark yellow urine with trace sediment noted in bag LDL due on 04/26/2017 URINE ALBUMIN CREATININE RATIO due on 05/03/2018 HBA1C due on 05/22/2018 DILATED RETINAL EXAM due on 11/06/2018 DIABETIC FOOT EXAM due on 11/12/2018 TETANUS due on 05/24/2025 ONE PNEUMOVAX PRIOR TO AGE 65 Completed INFLUENZA Completed ASSESSMENT/PLAN: 1. 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 - BLOOD SUGAR DIAGNOSTIC STRIPS 2. History of sleep apnea - ICD9: V13.89, ICD10: Z86.69 - Worsening symptoms follow recent hospitalization. - POLYSOMNOGRAM (PSG)/HOME SLEEP APNEA TESTING (HSAT) - Follow up to be determined by study results 3. CKD (chronic kidney disease), stage III - ICD9: 585.3, ICD10: N18.3 - Patient will be requiring dialysis in the near future. Was placed on a low sodium, renal and diabetic diet while in the hospital. Believe patient and significant other would benefit from dietary consult for meal planning. - CONSULT TO NUTRITION THERAPY 4. Chronic congestive heart failure, unspecified heart failure type (HCC) - ICD9: 428.0, ICD10: I50.9 - Recent exacerbation and hospitalization. - Symptoms improving - Lasix increased to 60mg BID - Cardiology follow up scheduled - Follow up in 3 months, sooner if new or worsening symptoms. Prescription instructions reviewed with patient as applicable. Potential red flag symptoms discussed with the patient. Reviewed appropriate action plan to take if red flag symptoms occur. Patient agreeable to treatment plan. Irma Villa APRN.EUGENIO Transitional Care Management Progress Note The patients TCM visit was performed within the 7 days of discharge. Patient's Date of discharge: 12/14/17 Discharge diagnosis: Hypoglycemia and CHF exacerbation Medication review completed Yes Provider Documentation: In follow-up of hospitalization, Williams Burgos is a 47 year old male with the chief complaint of hypoglycemia, blood glucose reading 34 and CHF exacerbation. I have reviewed the patient?s last hospital course including diagnostic testing performed during this hospitalization, their discharge medications, and my assessment and plan with the patient and any family members present at today?s visit. Irma Villa APRN.CNP CNOV Observed: 12/16/2017 Status: COMPLETED Source: [place] 4:00 PM [facility] Office Visit ([facility]) WILLIAMS BURGOS ([id number]) 1970 M Date Time Provider Department 12/16/17 4:00 PM IRMA VILLA (EUGENIO) IN[facility] During your visit today, we recorded the following information about you: Temperature Pulse Respiration Blood pressure 97.8 degrees 71/minute 16/minute 124/72 Weight 96.2 kg Irma Villa APRN.CNP 12/17/2017 10:57 AM Addendum CC: Patient presents with: Recheck: Hospital follow up HPI Williams Burgos is a 47 year old male who presents today with significant other and daughter for [facility] follow up. Patient was originally admitted from 11/28- 12/06/17 for acute respiratory failure secondary to chronic diastolic CHF/pulmonary HTN, ILDA, Urinary retention with indwelling sky catheter and nephrotic range proteinuria. Patient was discharged home with [facility]. Recommended patient have PFT and sleep study. Follow up scheduled with Dr. Cabral, (PFT) and LETTY Adams NP. Patient was sent home on Albuterol inhaler PRN, Lantus 40 units at bedtime, Flomax, Lasix BID and Novalog 15 units TID. Patient was to follow up with Urology for catheter removal on 12/10/17. Patient presented to urology appointment for catheter removal and scrotal edema, had catheter removed and instructed to self catheterize TID and elevated scrotum. At the end of the patient's visit with urology he was noted to be somewhat confused, pale and clammy. Patient was taken to the ER where he was found to be hypoglycemic at 34. He was again admitted on 12/10/17 for hypoglycemia, CHF with fluid overload and hypoxia. Patient was discharged on 12/14/17 home with [facility]. Nurse is coming to the house three times per week. Was receiving PT prior his last hospital admission, [facility] nurse is going to reinstate PT. It was indicated prior to patient's discharge he will be requiring dialysis in the near future. He has an appointment with on 12/23/17 to discuss planning. Since discharge patient reports he is feeling well. Notes that is energy level and ambulation is improving. Patient's significant other indicates that they, as a family, have made significant dietary changes to follow a renal, low sodium and diabetic diet. CHF. Mr. Burgos states that his breathing ability and energy level is better since discharge. He has dyspnea with ADL's and scrotal edema is improving. Pedal edema improved, currently wearing compression stockings. Patient currently has indwelling urinary catheter, he has Urology follow up in 9 days where a decision will be made regarding removal. He can walk room to room then becomes dyspneic. He sleeps semiupright in reclining chair for orthopnea. Patient denies chest pain, palpitations, lightheadness, syncope and right upper quadrant tenderness. Williams Burgos's appetite is good on a low salt, renal, diabetic diet. Last Echo EF: LV Ejection Fraction (%) Date Value 05/10/2017 55 DIABETES MELLITUS:Since hospital discharge denies excessive thirst or increased frequency of urination, chest pain or dyspnea , numbness, tingling or pain in extremities, new or unusual visual symptoms, low sugar/hypoglycemic reactions, weight loss/gain, lightheadedness/dizziness and bowel changes/loose stools. Follows a diabetic diet all of the time. He is compliant with medication(s) and is tolerating med(s) without any side effects. He reports checking his glucose on a three to four times a day schedule with sugars in the ANDlt;200 range. Patient's last HgA1C was Hemoglobin A1C (%) Date Value 11/19/2017 10.9 05/03/2017 11.7 09/07/2016 12.1 ) LUANNE: Per hospital admission records, Sleep study was recommend as patient is believed to have LUANNE. Patient reports a history of LUANNE without a BiPAP or CPAP machine. Significant other reports extreme loud snoring and moments of apnea. Consult was not placed on discharge. REVIEW OF SYSTEMS General: no fevers, no chills, no night sweats, no recurrent infections, no change in appetite, no change in energy and no significant changes in weight HEENT: no frequent or significant headaches, no changes in hearing, no visual changes, no nose bleeds, no sinus or nasal problems Neck: no lumps, no pain and no swelling Respiratory: no cough, no wheezing, no hemoptysis, See HPI Cardiovascular: no chest pain, no chest pressure and no palpitations. See HPI GI: No nausea, vomiting, or diarrhea : indwelling catheter. Denies hematuria, clots or foul smelling urine. Endocrine: no fatigue, no weight gain, no weight loss, no hair loss, no dry skin, no cold intolerance, no heat intolerance, no neck pain/pressure, no polyuria, no polyphagia and no polydipsia Neurologic: No headache, weakness, numbness, tingling, neck stiffness, tremor, vertigo, dizziness, memory loss, syncope. PAST MEDICAL HISTORY Diagnosis Date - Bronchitis - Depression - Detached retina - DM type 2, goal HbA1c ANDlt; 7% (HCC) - GERD (gastroesophageal reflux disease) - Hyperlipidemia - Kidney stones - PNA (pneumonia) - Unspecified essential hypertension - Vitamin D deficiency PAST SURGICAL HISTORY Procedure Laterality Date - CYSTOSCOPY,REMV CALCULUS,COMPLIC 1999 - PAST SURGICAL HISTORY OF Left 2012 ANDamp; 2014 removal eye fluid with instillation oil - REMOVAL GALLBLADDER 1998 Cholecystectomy ALLERGIES Review of patient's allergies indicates no known allergies. MEDICATIONS insulin glargine (LANTUS SOLOSTAR U-100 INSULIN) 100 unit/mL (3 mL) inpn Inject 60 Units subcutaneously every evening. insulin aspart U-100 (NOVOLOG FLEXPEN U-100 INSULIN) 100 unit/mL inpn Inject insulin three times daily at first bite of food. Take 15 units with each meal furosemide (LASIX) 20 mg tablet Take 1 tablet by mouth once daily. potassium chloride SR (MICRO-K) 10 mEq CR capsule Take 1 capsule by mouth twice daily. atenolol (TENORMIN) 100 mg tablet Take 1 tablet by mouth once daily. ANDgt;Compression Knee Highs 30-40 mm KNEE HIGH COMPRESSION STOCKINGS, 30-40 MM, I DX: EDEMA gabapentin (NEURONTIN) 300 mg capsule Take 1 capsule by mouth three times daily for 30 days. atorvastatin (LIPITOR) 20 mg tablet Take 1 tablet by mouth at bedtime as needed. Ranitidine HCl (ZANTAC) 300 mg tablet Take 1 tablet by mouth daily before dinner. buPROPion XL (WELLBUTRIN XL) 300 mg 24 hr tablet Take 1 tablet by mouth once daily. amLODIPine (NORVASC) 5 mg tablet Take 1 tablet by mouth once daily. Indications: hypertension hydroCHLOROthiazide (HYDRODIURIL, ESIDRIX) 25 mg tablet Take 1 tablet by mouth once daily. lisinopril (ZESTRIL, PRINIVIL) 40 mg tablet Take 1 tablet by mouth once daily. Indications: hypertension aspirin 81 mg chewable tablet Take 81 mg by mouth once daily. ACETAMINOPHEN ORAL Take by mouth. 1000 mg bid for pain / aches FAMILY HISTORY Problem Relation Age of Onset - Colon Cancer Father 53 - Diabetes Brother 52 - Diabetes Sister - Diabetes Mother 78 - Cancer Brother 49 lung - Diabetes Son Social History Substance Use Topics - Smoking status: Never Smoker - Smokeless tobacco: Current User Types: Snuff Comment: snuff x 33 years - Alcohol use Yes Comment: rarely PHYSICAL EXAM BP 124/72 Pulse 71 Temp 36.6 ?C (97.8 ?F) (Temporal Artery) Resp 16 Wt 96.2 kg (212 lb) SpO2 100% BMI 32.23 kg/m2 General Appearance: well appearing, in no acute distress, alert Skin: Dusky in Color, without evidence of rash or lesions. Head: normocephalic, atraumatic Eyes: conjunctiva pink and moist, no icterus, sclera white, non-injected Lungs: Lungs clear to auscultation. No wheezing, rhonchi, rales Heart: RRR without murmur, gallop, or rubs. No ectopy Ext: trace LE edema, good distal pulses- patient wearing compression stockings : sky catheter maintained, dark yellow urine with trace sediment noted in bag LDL due on 04/26/2017 URINE ALBUMIN CREATININE RATIO due on 05/03/2018 HBA1C due on 05/22/2018 DILATED RETINAL EXAM due on 11/06/2018 DIABETIC FOOT EXAM due on 11/12/2018 TETANUS due on 05/24/2025 ONE PNEUMOVAX PRIOR TO AGE 65 Completed INFLUENZA Completed ASSESSMENT/PLAN: 1. 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 - BLOOD SUGAR DIAGNOSTIC STRIPS 2. History of sleep apnea - ICD9: V13.89, ICD10: Z86.69 - Worsening symptoms follow recent hospitalization. - POLYSOMNOGRAM (PSG)/HOME SLEEP APNEA TESTING (HSAT) - Follow up to be determined by study results 3. CKD (chronic kidney disease), stage III - ICD9: 585.3, ICD10: N18.3 - Patient will be requiring dialysis in the near future. Was placed on a low sodium, renal and diabetic diet while in the hospital. Believe patient and significant other would benefit from dietary consult for meal planning. - CONSULT TO NUTRITION THERAPY 4. Chronic congestive heart failure, unspecified heart failure type (HCC) - ICD9: 428.0, ICD10: I50.9 - Recent exacerbation and hospitalization. - Symptoms improving - Lasix increased to 60mg BID - Cardiology follow up scheduled - Follow up in 3 months, sooner if new or worsening symptoms. Prescription instructions reviewed with patient as applicable. Potential red flag symptoms discussed with the patient. Reviewed appropriate action plan to take if red flag symptoms occur. Patient agreeable to treatment plan. Irma Villa APRN.EUGENIO Transitional Care Management Progress Note The patients TCM visit was performed within the 7 days of discharge. Patient's Date of discharge: 12/14/17 Discharge diagnosis: Hypoglycemia and CHF exacerbation Medication review completed Yes Provider Documentation: In follow-up of hospitalization, Williams Burgos is a 47 year old male with the chief complaint of hypoglycemia, blood glucose reading 34 and CHF exacerbation. I have reviewed the patient?s last hospital course including diagnostic testing performed during this hospitalization, their discharge medications, and my assessment and plan with the patient and any family members present at today?s visit. Irma Villa APRN.EUGENIO Chinchilla Ma 12/17/2017 10:57 AM Signed Transitional Care Management Progress Note The patients TCM visit was performed within the 14 days of discharge. Patient's Date of discharge: 12/06 Date of initial coordinator contact after discharge: 12/02 Discharge diagnosis: Diabetes Medication review completed Yes Monik Chinchilla Ma Provider Documentation: In follow-up of hospitalization, Williams Burgos is a 47 year old male with the chief complaint of Nephrotic Syndrome I have reviewed the patient?s last hospital course including diagnostic testing performed during this hospitalization, their discharge medications, and my assessment and plan with the patient and any family members present at today?s visit. Referring Provider: [facility] [[id number]] Allergies As of Date: 12/16/2017 (No Known Allergies) Date Reviewed: 12/16/2017 Reviewed by: Monik Chinchilla Ma - Fully Assessed Reason for Visit: Recheck [92] Cmt: Hospital follow up Primary Visit Diagnosis:Uncontrolled type 2 diabetes mellitus with complication, with long-term current use of insulin (HCC) [E11.8, E11.65, Z79.4] Other Visit Diagnoses:History of sleep apnea [Z86.69] CKD (chronic kidney disease), stage III [N18.3] Chronic congestive heart failure, unspecified heart failure type (HCC) [I50.9] Order(s):CONSULT TO NUTRITION THERAPY [9020] Order #: [id number]: 1 POLYSOMNOGRAM (PSG)/HOME SLEEP APNEA TESTING (HSAT) [6341864] Order #: [id number] FUTURE furosemide (LASIX) 20 mg tabletTake 1 tablet by mouth twice daily.Disp: 60 tabletRfl: 5 Prescriptions as of 12/16/2017 Sig: FUROSEMIDE 20 MG TABLET Take 1 tablet by mouth twice * X BLOOD SUGAR DIAGNOSTIC STRIPS Use as instructed INSULIN GLARGINE (U-100) 100 * Inject 60 Units subcutaneousl* INSULIN ASPART U-100 100 UNI* Inject insulin three times da* POTASSIUM CHLORIDE ER 10 MEQ * Take 1 capsule by mouth twice* ATENOLOL 100 MG TABLET Take 1 tablet by mouth once d* COMPOUNDED PRESCRIPTION KNEE HIGH COMPRESSION STOCKIN* GABAPENTIN 300 MG CAPSULE Take 1 capsule by mouth three* ATORVASTATIN 20 MG TABLET Take 1 tablet by mouth at bed* RANITIDINE 300 MG TABLET Take 1 tablet by mouth daily * BUPROPION XL 300 MG 24 HR TAB Take 1 tablet by mouth once d* AMLODIPINE 5 MG TABLET Take 1 tablet by mouth once d* HYDROCHLOROTHIAZIDE 25 MG TAB* Take 1 tablet by mouth once d* LISINOPRIL 40 MG TABLET Take 1 tablet by mouth once d* ASPIRIN 81 MG CHEWABLE TABLET Take 81 mg by mouth once adela* ACETAMINOPHEN ORAL Take by mouth. 1000 mg bid f* Medication notes this encounter INSULIN GLARGINE (U-100) 100 UNIT/ML (3 ML) SUBCUTANEOUS PEN >> Monik Chinchilla Ma 12/16/2017 4:08 PM >> MONIK CHINCHILLA MA SatDec 16, 2017 4:08 PM Taking 34 units at bedtime INSULIN ASPART U-100 100 UNIT/ML SUBCUTANEOUS PEN >> Monik Chinchilla Ma 12/16/2017 4:08 PM >> MONIK CHINCHILLA MA [facility] Dec 16, 2017 4:08 PM Taking 4 units with each meal POTASSIUM CHLORIDE ER 10 MEQ CAPSULE,EXTENDED RELEASE >> Monik Chinchilla Ma 12/16/2017 4:09 PM >> MONIK CHINCHILLA MA [facility] Dec 16, 2017 4:09 PM No longer taking ATENOLOL 100 MG TABLET >> Monik Chinchilla Ma 12/16/2017 4:10 PM >> MONIK CHINCHILLA MA [facility] Dec 16, 2017 4:10 PM Not taking FUROSEMIDE 20 MG TABLET >> Monik Chinchilla Ma 12/16/2017 4:07 PM >> MONIK CHINCHILLA MA [facility] Dec 16, 2017 4:07 PM Taking 60mg daily HYDROCHLOROTHIAZIDE 25 MG TABLET >> Monik Chinchilla Ma 12/16/2017 4:09 PM >> MONIK CHINCHILLA MA [facility] Dec 16, 2017 4:09 PM Not taking LISINOPRIL 40 MG TABLET >> Monik Chinchilla Ma 12/16/2017 4:10 PM >> MONIK CHINCHILLA MA [facility] Dec 16, 2017 4:10 PM Not taking Problem List As Of Date 12/16/2017 Noted Resolved Uncontrolled type 2 diabetes mellitus with comp*INVALID FOR* More... Hypertension goal BP (blood pressure) < 140/90 *INVALID FOR* More... HYPERLIPIDEMIA NEC/NOS [E78.5] INVALID FOR* More... DEPRESSIVE DISORDER NEC [F32.9] INVALID FOR* More... ED (erectile dysfunction) [N52.9] INVALID FOR* Lower urinary tract symptoms (LUTS) [R39.9] INVALID FOR* History of kidney stones [Z87.442] INVALID FOR* Microscopic hematuria [R31.29] INVALID FOR* Diabetic polyneuropathy associated with type 2 *INVALID FOR* More... Acute pain of right shoulder [M25.511] INVALID FOR* More... Nausea [R11.0] INVALID FOR* More... Vomiting [R11.10] INVALID FOR* More... Moderate episode of recurrent major depressive *INVALID FOR* Stage 3 chronic kidney disease [N18.3] INVALID FOR* Visit Notes: >> Monik Melendrez Dec 17, 2017 10:52 AM Status: Signed Transitional Care Management Progress Note The patients TCM visit was performed within the 14 days of discharge. Patient's Date of discharge: 12/06 Date of initial coordinator contact after discharge: 12/02 Discharge diagnosis: Diabetes Medication review completed Yes Monik Chinchilla Ma Provider Documentation: In follow-up of hospitalization, Williams Burgos is a 47 year old male with the chief complaint of Nephrotic Syndrome I have reviewed the patient?s last hospital course including diagnostic testing performed during this hospitalization, their discharge medications, and my assessment and plan with the patient and any family members present at today?s visit. Prescriptions ordered this encounter Disp Refills Start End BLOOD SUGAR DIAGNOSTIC STRIPS 100 * 11 12/16/2017 12/17/2017 Sig: Use as instructed FUROSEMIDE 20 MG TABLET 60 t* 5 12/16/2017 Route: ORAL Sig: Take 1 tablet by mouth twice daily. Medications Discontinued During This Encounter furosemide (LASIX) 20 mg tablet 14 t* 1 11/26/2017 12/16/2017 Route: ORAL Sig: Take 1 tablet by mouth once daily. Disc: Reason for discontinue is not on file. Encounter Status:Closed by IRMA VILLA CNP on 12/16/17 12 LEAD ELECTROCARDIOGRAM Observed: 12/16/2017 Status: F Source: [facility] 3:41 PM [facility] REPOSIT[facility] Cardiovascular Services [address] [place] [address] 12 Lead EKG 12/10/17 1720 MR#: [id number] Acct: [id number] Name: WILLIAMS BURGOS Rep #: [id number] : 1970 47 From: Tylor Rudd MD Attending Dr: Tammie Fang Status: DIS IN Ordering Dr: Alana Orozco MD Date: 12/10/17 Location: U Sex: M C Admitted: 12/10/17 Test Reason : HYPOGLYCEMIA Blood Pressure : / mmHG Vent. Rate : 063 BPM Atrial Rate : 063 BPM P-R Int : 190 ms QRS Dur : 108 ms QT Int : 456 ms P-R-T Axes : 040 049 058 degrees QTc Int : 466 ms Sinus rhythm with occasional Premature ventricular complexes Otherwise normal ECG Confirmed by TYLOR RUDD MD ([id number]), features editor TOBY WATSON ([id number]) on 12/16/2017 3:41:27 PM Referred By: DONATO Confirmed By:TYLOR RUDD MD 12/16/17 1541 Date Tylor Rudd MD CC: Alana Orozco MD; Tammie Fang; Anderson Gaston MD Signed CONSULTATION Observed: 12/15/2017 Status: F Source: [facility] 8:28 AM [facility] REPOSIT[facility] Medical Records Department [address] [place] [id number] Consultation 12/13/17 1301 MR#: [id number] Acct: [id number] Name: WILLIAMS BURGOS Rep #: [id number] : 1970 47 From: Loida Montiel DO PCP: Anderson Gaston MD Status: DIS IN Y Location: [place] [id number] Consultation - Renal 12/13/17 PCP/ Referring MD: Requesting physician: [] Primary care physician: Anderson Gaston Reason for Consultation:: acute on CKD - History of Present Illness History of Present Illness: The patient is a 47 year old M past medical history of chronic diastolic CHF, LVH, hypertension, diabetes mellitus 2 on insulin therapy complicated by neuropathy, retinopathy, nephropathy with nephrotic proteinuria, obesity, hyperlipidemia, history of coronary artery disease, stage III CKD with anemia was seen in office on Saturday and had Sky catheter removed. He then went to ER that same day for urinary retention, difficulty with urination and abdominal distension, scrotal edema. Sky catheter was reinserted. Creatinine was 2.6 on 12/11, 2.83 on 12/12, 2.87 on 12/13. He was recently discharged from [facility] to home with home health on 12/06 with sky due to neurogenic bladder. Creatinine improved from 3.74 to 3.19 prior to discharge. Baseline creatinine was 2.46 on h 11/20/17, 1.86 on 05/29/17. He has a history of medical and dietary noncompliance with his diabetes. Discussed with patient about dialysis in the near future, dialysis access. He was admitted on 12/11 for hypoglycemia sugar 40. He was started on Lasix drip for anasarca. BNP at 367. Urinalysis was noncontributory. Chest x-ray revealed stable heart size, mild congestive changes. He denied chest pain, shortness of breath, cough. He complained of scrotal edema. He has not been tested for sleep apnea yet. - Allergies Allergies: Allergies No Known Allergies Allergy (Verified 11/28/17 08:44) - Current Medications Current Medications: Current Medications Acetaminophen (Tylenol) 650 mg PO Q6H PRN PRN PRN Reason: Mild Pain (scale 0-3)/T>100.7 Last Admin: 12/13/17 01:31 Dose: 650 mg Albuterol Sulfate (Ventolin Aerosols) 2.5 mg INHALATION Q4H PRN PRN PRN Reason: SOB AND /OR WHEEZING Aspirin (Aspirin, Baby) 81 mg PO DAILY@0800 [facility] Last Admin: 12/13/17 08:07 Dose: 81 mg Atenolol (Tenormin (Beta Elizabeth)) 100 mg PO DAILY [facility] Last Admin: 12/13/17 08:09 Dose: 100 mg Atorvastatin Calcium (Lipitor) 20 mg PO QHS [facility] Last Admin: 12/12/17 21:28 Dose: 20 mg Bupropion HCl (Wellbutrin Xl) 300 mg PO DAILY [facility] Last Admin: 12/13/17 08:09 Dose: 300 mg Gabapentin (Neurontin) 300 mg PO TIDCM [facility] Last Admin: 12/13/17 11:48 Dose: 300 mg Heparin Sodium (Porcine) (Heparin Na) 5,000 unit SC BID [facility] Last Admin: 12/13/17 08:08 Dose: 5,000 u Furosemide 500 mg/ N/A 50 mls @ 1 mls/hr CONT INF .Q50H [facility] PRN Reason: 10 MG/HR Last Admin: 12/12/17 08:36 Dose: 1 mls/hr Insulin Aspart (Novolog Flexpen (Bkc)) 2 units SC TIDAC HEDY Last Admin: 12/13/17 11:46 Dose: 2 u Insulin Aspart (Novolog Flexpen (Bkc)) 0 units SC TIDAC HEDY PRN Reason: Protocol Last Admin: 12/13/17 11:47 Dose: 2 u Insulin Detemir (Levemir (Bkc)) 34 units SC HS [facility] Last Admin: 12/12/17 21:29 Dose: 34 u Magnesium Hydroxide (Milk Of Magnesia) 30 ml PO DAILY PRN PRN Reason: Constipation Melatonin (Melatonin) 3 mg PO QHS PRN PRN Reason: SLEEP Psyllium Hydrophilic Mucilloid (Metamucil) 1 packet PO DAILY PRN PRN PRN Reason: CONSTIPATION Sodium Chloride () 5 - 30 ml IV UD PRN PRN Reason: SALINE FLUSH Last Admin: 12/10/17 21:08 Dose: 10 ml Tamsulosin HCl (Flomax) 0.4 mg PO BID@0830,1730 [facility] Last Admin: 12/13/17 08:07 Dose: 0.4 mg - Past Medical History Past Medical History (Chronic Problems): Chronic Problems Nephrosis (Chronic) Obesity (BMI 30-39.9) (Chronic) Noncompliance (Chronic) Diabetic neuropathy (Chronic) Diabetic nephropathy (Chronic) Diabetic retinopathy (Chronic) HTN (hypertension) (Chronic) HLD (hyperlipidemia) (Chronic) Blind left eye (Chronic) Diabetes mellitus type II, uncontrolled (Chronic) Anxiety and depression (Chronic) GERD (gastroesophageal reflux disease) (Chronic) Chewing tobacco nicotine dependence (Chronic) CKD (chronic kidney disease) stage 3, GFR 30-59 ml/min (Chronic) Leg edema, right (Chronic) History of acute myocardial infarction (Chronic) - Past Surgical History Surgical History: cholecystectomy, - - Cholecystectomy, left retinal tear repair attempts, right eye laser surgery. - Social History Marital Status: Smoking Status: Never smoker - Family History Maternal Family History: Family History (Last Updated 12/11/17 @ 14:35 by Mary Johnson) Mother Heart disease History Items: Heart Disease Paternal Family History: Family History (Last Updated 12/11/17 @ 14:35 by Mary Johnson) Mother Heart disease History Items: Cancer - Father w/ Colon CA. Sibling Family History: Family History (Last Updated 12/11/17 @ 14:35 by Mary Johnson) Mother Heart disease History Items: Diabetes - sister, brother who passed, no kidney disease Review of Systems Constitutional: Denies: Anorexia, Chills, Fever, Weakness, Fatigue Cardiovascular: Reports: Edema. Denies: Chest Pain Respiratory: Denies: Cough, Shortness of Breath Gastrointestinal: Reports: - - appetite good. Denies: Abdominal Pain, Constipation, Diarrhea, Nausea, Vomiting Genitourinary: Denies: Dysuria Skin: Denies: Rash Neurological: Denies: Balance problems Psychiatric: Reports: Anxiety, Depression Hematologic/ Lymphatic: Reports: Anemia. Denies: Hx of blood clot Patient Problems: Active and Suspected Problems Acute on chronic diastolic CHF (congestive heart failure) (Acute) Acute hypoxemic respiratory failure (Acute) Hypoglycemia (Acute) resolved in ED - Physical Exam General: Alert, Oriented x3, Cooperative, No apparent distress HEENT: PERRLA, EOMI Oral: Moist Mucosa Neck: Supple Lungs: Clear to auscultation Cardiovascular: Regular rate Abdomen: Bowel Sounds Present, Soft, Non Tender, Obese Extremities: Edema - 1+ pitting Skin: No rashes Musculoskeletal: No Muscle Wasting Neurological: Cranial nerves II-XII grossly intact Psych/Mental Status: Normal Affect, Appropriate, Alert and oriented to time, place, person, mood and affect Vital Signs Temp Pulse Resp BP Pulse Ox 98.5 F 72 16 138/78 H 95 12/13/17 12:19 12/13/17 12:19 12/13/17 12:19 12/13/17 12:19 12/13/17 12:19 Oxygen Flow Rate (L/min) 3 Oxygen Delivery Method Room Air Weight: 102 kg Body Mass Index (BMI) 37.4 Intake and Output for Last 24 Hours Laboratory Tests Past 24 Hrs WBC 7.1 RBC 3.64 L Hgb 10.5 L Hct 31.7 L MCV 87.1 MCH 28.8 POC Glucose POC Glucose 284 H 193 H 358 H POC Glucose 223 H Clinical Impression(s) from Imaging Studies Chest X-Ray 12/10/17 17:10 IMPRESSION: Moderate pulmonary vascular congestion which is worse when compared with the prior exam. Small bilateral pleural effusions. Stable mild cardiomegaly. Electronically Signed: Torres Islas, at 18:02 EDT Tel , Service support , Assessment/Plan Active and Suspected Problems Acute on chronic diastolic CHF (congestive heart failure) (Acute) Acute hypoxemic respiratory failure (Acute) Hypoglycemia (Acute) resolved in ED 1. ILDA on CKD stage 3 due to urinary retention. Sky catheter reinserted. Creatinine 2.6 on admit to 2.87 today on lasix drip. Baseline creatinine 2.46 on 11/20, 1.86 on 05/29/17. Creatinine was 3.7 improved to 3.19 during last hospitalization. Continue with sky. Discussed with pt about dialysis, dialysis access in the near future if renal fxn continues to decline. 2. Urinary retention with sky to CD, anasarca. Switch lasix drip to intermittent iv lasix. 3. DM2 with history of noncompliance 4. HTN stable 5. Anemia stable 6. Fluid retention, anasarca with nephrotic proteinuria from diabetes. BNP 408. Watch for worsening azotemia on iv lasix. 12/15/17 0828 <Electronically signed by Loida Montiel DO> Date Loida Montiel DO Cosigner Signature (if applicable): Date CC: Anderson Gaston MD Signed DISCHARGE INSTRUCTION Observed: 12/14/2017 Status: F Source: [facility] 6:59 PM [facility]IT[facility] Medical Records Department [address] [place] [address] Instructions for Home/Discharge Instructions 12/14/17 1806 MR#: [id number] Acct: [id number] Name: WILLIAMS BURGOS Rep #: [id number] : 1970 47 From: Anitha Fang DO PCP: Anderson Gaston MD Status: ADM IN - Discharge Diagnoses Current Active Problems: Current Active and Chronic Problems Acute on chronic diastolic CHF (congestive heart failure) (Acute) Acute hypoxemic respiratory failure (Acute) Nephrosis (Chronic) Hypoglycemia (Acute) resolved in ED You will use the following diet at home:: Calorie/Carbohydrate Controlled (specify 1200, 1400, etc) - 4602-9347 calories, 2 GM sodium, 60 GM protein, Fluid restricted (specify 2000 mls, 1500 mls) - 1200 cc daily Your food should be the consistency of: Regular Your liquids should be the consistency of: Regular/Thin Keep extremity elevated above heart level: Legs Call your doctor if you observe: Fever of 101 or Higher, Shortness of breath, Dizziness, Fainting spells, - - increased swelling of the abdomen, legs or scrotum Instructions: Arteriovenous (AV) Fistula for Dialysis, Hemodialysis, MyPlate Worksheet: 1,800 Calories, ED Nephrotic Syndrome Additional Instructions: 1. The dieticians have an outpatient clinic to help with managing specific diets. Ask Dr. Gaston for a referral to the diabetic clinic. 2. I am decreasing the amount of insulin you are taking at home because since you have a better diet you need less insulin. 3. I am increasing the amount of Lasix you are taking at home to help control the reaccumulation of the fluid. Your part is you have to control how much you are drinking. Keep your fluid intake between 1200 and 1500. Salt causes fluid retention to do not salt your food and avoid canned vegetables and soups. Lunch meats and cheeses also have a lot of salt. You will be better off with fresh vegetables and home made soups. When you eat at a restaurant there is a very high salt content. The carry out clerk and shelf stocker's can help you with what to pick to eat if you do go out. 4. You are going to need to be on dialysis in the not too distant future.....some day you may be a candidate for a kidney transplant BUT, you need to get your blood sugars controlled and be compliant with medications and follow up with your doctors or you will not be considered. 5. Weigh your self in the morning after you urinate and write the number down. You should weigh yourself every day naked in the morning after urinating. If the weight increases by more than 5 lbs in a week you are retaining fluid and you should call Dr. Montiel for instructions on what to do with the Lasix. Pending Tests on Discharge: none Allergies/Adverse Reactions: Allergies No Known Allergies Allergy (Verified 11/28/17 08:44) Medications to take at Discharge Gabapentin [Neurontin] 300 mg PO TIDCM 07/15/13 Bupropion HCl [Wellbutrin Xl] 300 mg PO DAILY 05/06/17 Aspirin 81 mg PO DAILY 11/19/17 Atorvastatin Calcium [Lipitor] 20 mg PO QHS 11/19/17 Atenolol [Tenormin (beta elizabeth)] 100 mg PO DAILY 11/28/17 Insulin Aspart [Novolog Flexpen] See Protocol SC ACHS flexpen 12/05/17 Psyllium [Metamucil] 1 packet PO DAILY PRN PRN packet 12/05/17 Albuterol Inhaler [Ventolin Hfa] 2 puff INHALATION Q4H PRN PRN #1 inhaler 12/06/17 Insulin Aspart [Novolog Flexpen] 15 units SC TIDCM #1 flexpen 12/06/17 Insulin Glargine [Lantus SoloStar Pen] 65 units SC QHS 12/10/17 Tamsulosin HCl [Flomax] 0.4 mg PO BID@0830,1730 12/10/17 Furosemide [Lasix] 60 mg PO BIDLX #90 tab 12/14/17 The following prescriptions were given: Furosemide [Lasix] 60 mg PO BIDLX #90 tab Primary Care Physician: Anderson Gaston MD [Primary Care Provider] - Please follow up with your Primary Care Physician in: 5-7 days Please Follow Up With: Loida Montiel DO When: 2 weeks Please Follow Up With: Oswald Arriola MD When: as needed. Please Follow Up With: [facility] When: within the month Please Follow Up With: diabetic clinic When: BECK for instruction on diet. Proposed Discharge Date: 12/14/17 12/14/17 1859 <Electronically signed by Anitha Fang DO> Date Anitha Fang DO CC: Norah Adams NP; Anderson Gaston MD; Loida Montiel DO; Tylor Rudd MD BEDSIDE GLUCOSE Collected: 12/14/2017 Status: F Source: [facility] 4:17 PM [facility] REPOSITORY TYPE CODE TESTS RESULT OUT OF REFERENCE UNITS RANGE LAB L501.080 70-110 mg/dL High BEDSIDE GLU 161 Result Comment: MANAGEMENT OF PATIENT CARE PER NURSING PROTOCOL Performed By: #### L501.080 #### [facility] Laboratory Point of Care [address] [place], [place] [id number] BEDSIDE GLUCOSE Collected: 12/14/2017 Status: F Source: [facility] 11:18 AM [facility] TYPE CODE TESTS RESULT OUT OF REFERENCE UNITS RANGE LAB L501.080 70-110 mg/dL High BEDSIDE GLU 143 Result Comment: MANAGEMENT OF PATIENT CARE PER NURSING PROTOCOL Performed By: #### L501.080 #### [facility] Laboratory Point of Care [address] [address] RENAL PROFILE Collected: 12/14/2017 Status: F Source: [facility] 7:08 AM [facility] TYPE CODE TESTS RESULT OUT OF RANGE REFERENCE UNITS LAB L501.0100 74-106 mg/dL High GLU 152 Result Comment: Fasting Glucose result greater than or equal to 126 mg/dL suggests DIABETES MELLITUS per A.D.A. criteria. Please note revised GLUCOSE reference range effective 2017. LAB L501.1000 7-18 mg/dL High BUN 52 LAB L501.1100 0.70-1.30 mg/dL High CREAT,SERUM 2.82 Result Comment: The validity of the calculated GFR AND GFRAA in patients over 70 years has not been determined. Clinical correlation is essential. LAB L501.1110 >60 mL/min Low EST GFR 26 Result Comment: Non- GFR Calc LAB L501.1115 >60 mL/min Low EST GFR - AA 31 Result Comment: GFR Calc LAB L501.1255 ml/min Normal Estimated CRCL 30.66 LAB L501.1300 10-20 RATIO Normal BUN/CRE 18.4 LAB L501.1800 3.2-5. g/dL Low 0 ALB 2.1 LAB L501.2200 8.5-10 mg/dL Normal .1 CA 8.7 LAB L501.2300 2.5-4. mg/dL Normal 9 PHOS 4.3 LAB L501.5300 136-14 mmol/L Normal 5 NA 142 LAB L501.5600 3.5-5. mmol/L Normal 1 K 3.6 LAB L501.5900 98-107 mmol/L Normal CL 99 LAB L501.6100 21.0-3 mmol/L High 2.0 CO2 35.0 Performed By: #### L500.3600 #### [facility] [address] [facility] [id number] BEDSIDE GLUCOSE Collected: 12/14/2017 Status: F Source: [facility] 6:56 AM [facility] TYPE CODE TESTS RESULT OUT OF REFERENCE UNITS RANGE LAB L501.080 70-110 mg/dL High BEDSIDE GLU 182 Result Comment: MANAGEMENT OF PATIENT CARE PER NURSING PROTOCOL Performed By: #### L501.080 #### [facility] Point of Care [address] [place] [address] BEDSIDE GLUCOSE Collected: 12/13/2017 Status: F Source: [facility] 10:31 PM [facility] TYPE CODE TESTS RESULT OUT OF REFERENCE UNITS RANGE LAB L501.080 70-110 mg/dL High BEDSIDE GLU 391 Result Comment: MANAGEMENT OF PATIENT CARE PER NURSING PROTOCOL Performed By: #### L501.080 #### [facility] Point of Care [address] [place] [address] BEDSIDE GLUCOSE Collected: 12/13/2017 Status: F Source: [facility] 4:39 PM [facility] TYPE CODE TESTS RESULT OUT OF REFERENCE UNITS RANGE LAB L501.080 70-110 mg/dL High BEDSIDE GLU 293 Result Comment: MANAGEMENT OF PATIENT CARE PER NURSING PROTOCOL Performed By: #### L501.080 #### [facility] Point of Care [address] [place] [address] BEDSIDE GLUCOSE Collected: 12/13/2017 Status: F Source: [facility] 10:50 AM [facility]POS[facility] TYPE CODE TESTS RESULT OUT OF REFERENCE UNITS RANGE LAB L501.080 70-110 mg/dL High BEDSIDE GLU 284 Result Comment: MANAGEMENT OF PATIENT CARE PER NURSING PROTOCOL Performed By: #### L501.080 #### [facility] Point of Care [address] [place] [address] BEDSIDE GLUCOSE Collected: 12/13/2017 Status: F Source: [facility] 6:46 AM [facility] TYPE CODE TESTS RESULT OUT OF REFERENCE UNITS RANGE LAB L501.080 70-110 mg/dL High BEDSIDE GLU 193 Result Comment: MANAGEMENT OF PATIENT CARE PER NURSING PROTOCOL Performed By: #### L501.080 #### [facility] Point of Care [address] [place] [address] [place] [address] CBC-COMPLETE BLOOD CNT Collected: 12/13/2017 Status: F Source: [facility] NO DIFF 6:13 AM [facility] TYPE CODE TESTS RESULT OUT OF RANGE REFERENCE UNITS LAB L100.1000 4.4-11.0 K/mm3 Normal WBC 7.1 LAB L100.1200 4.6-6.2 M/mm3 Low RBC 3.64 LAB L100.1300 13.0-16.5 g/dl Low HGB 10.5 LAB L100.1400 40-54 % Low HCT 31.7 LAB L100.1500 80-94 fL Normal MCV 87.1 LAB L100.1600 27.0-32.0 pg Normal MCH 28.8 LAB L100.1700 32-36 g/gl Normal MCHC 33.1 LAB L100.1810 11.6-14.6 % Normal RDW CV 12.5 LAB L100.1820 35.1-43.9 fl Normal RDW SD 38.1 LAB L100.1900 150-450 K/mm3 Normal PLT 248 LAB L100.2000 6.2-12.0 fl Normal MPV 8.8 Performed By: #### L100.0500 #### [facility] [address] [place], [place], [id number] BASIC METABOLIC Collected: 12/13/2017 Status: F Source: [facility] PROFILE (BMP) 6:13 AM [facility]POS[facility] TYPE CODE TESTS RESULT OUT OF RANGE REFERENCE UNITS LAB L501.0100 74-106 mg/dL High GLU 193 Result Comment: Fasting Glucose result greater than or equal to 126 mg/dL suggests DIABETES MELLITUS per A.D.A. criteria. Please note revised GLUCOSE reference range effective 2017. LAB L501.1000 7-18 mg/dL High BUN 55 LAB L501.1100 0.70-1.30 mg/dL High CREAT,SERUM 2.87 Result Comment: The validity of the calculated GFR AND GFRAA in patients over 70 years has not been determined. Clinical correlation is essential. LAB L501.1110 >60 mL/min Low EST GFR 25 Result Comment: Non- GFR Calc LAB L501.1115 >60 mL/min Low EST GFR - AA 30 Result Comment: GFR Calc LAB L501.1255 ml/min Normal Estimated CRCL 30.12 LAB L501.1300 10-20 RATIO Normal BUN/CRE 19.2 LAB L501.2200 8.5-10 mg/dL Low .1 CA 8.4 LAB L501.5300 136-14 mmol/L Normal 5 NA 141 LAB L501.5600 3.5-5. mmol/L Normal 1 K 4.0 LAB L501.5900 98-107 mmol/L Normal CL 101 LAB L501.6100 21.0-3 mmol/L High 2.0 CO2 33.0 LAB L501.6200 5-15 Normal GAP 7 Performed By: #### L500.2500, L501.2300 #### [facility] [address] [facility] [place], [address] PHOSPHORUS Collected: 12/13/2017 Status: F Source: [facility] 6:13 AM [facility] TYPE CODE TESTS RESULT OUT OF RANGE REFERENCE UNITS LAB L501.2300 2.5-4.9 mg/dL Normal PHOS 4.4 Performed By: #### L500.2500, L501.2300 #### [facility] [address] [place], [address] BEDSIDE GLUCOSE Collected: 12/12/2017 Status: F Source: [place] 8:45 PM [facility] TYPE CODE TESTS RESULT OUT OF REFERENCE UNITS RANGE LAB L501.080 70-110 mg/dL High BEDSIDE GLU 358 Result Comment: MANAGEMENT OF PATIENT CARE PER NURSING PROTOCOL Performed By: #### L501.080 #### [facility] Point of Care [address] [place] [address] BEDSIDE GLUCOSE Collected: 12/12/2017 Status: F Source: [place] 4:09 PM [facility] TYPE CODE TESTS RESULT OUT OF REFERENCE UNITS RANGE LAB L501.080 70-110 mg/dL High BEDSIDE GLU 223 Result Comment: MANAGEMENT OF PATIENT CARE PER NURSING PROTOCOL Performed By: #### L501.080 #### [facility] Point of Care [address] [place] [address] BEDSIDE GLUCOSE Collected: 12/12/2017 Status: F Source: [place] 11:57 AM [facility] REPOSITORY TYPE CODE TESTS RESULT OUT OF REFERENCE UNITS RANGE LAB L501.080 70-110 mg/dL High BEDSIDE GLU 229 Result Comment: MANAGEMENT OF PATIENT CARE PER NURSING PROTOCOL Performed By: #### L501.080 #### [facility] Point of Care [address] [address] VENOUS DUPLEX LOWER Observed: 12/12/2017 Status: F Source: [facility] EXTREMITY 8:48 AM [facility] REPOSITORY [facility] Cardiovascular Services [address] [place] [address] Venous Duplex US - Mickey Extrem 12/11/17 0916 MR#: [id number] Acct: [id number] Name: WILLIAMS BURGOS Mery Rep #: [id number] : 1970 47 From: Luis Garcia MD Attending Dr: Tammie Fang Status: ADM IN Ordering Dr: Kayla Mcmanus MD Date: 12/11/17 Location: U Sex: M C Admitted: 12/10/17 Reason For Study: SWELLING RIGHT LEFT GSV is normal. GSV is normal. CFV is compressible, spontaneous, phasic, CFV is compressible, spontaneous, phasic, competent and demonstrates normal competent, and demonstrates normal augmentation. augmentation. FV is compressible, spontaneous, phasic, FV is compressible, spontaneous, phasic, competent and demonstrates normal competent and demonstrates normal augmentation. augmentation. POP V is compressible, spontaneous, phasic, POP V is compressible, spontaneous, phasic, competent and demonstrates normal competent and demonstrates normal augmentation. augmentation. T/P Trunk is compressible. T/P Trunk is compressible. PTV is compressible. PTV is compressible. RT PerV is compressible. LT PerV is compressible. Procedure Exam performed portable in patient room. A preliminary report was called and/or faxed to [facility]. Interpretation Summary Deep veins of the lower extremities are bilaterally patent and compressible segmentally. There is no evidence of deep vein thrombosis on either side. Valvular competence appears intact within the proximal deep venous systems bilaterally. The greater saphenous veins appear bilaterally patent and compressible segmentally. Ordering Physician: Kayal Mcmanus Referring Physician: ANDERSON GASTON Performed By: Meri Murray, NAVDEEPCS, RVT 12/12/17 0847 Date Luis Garcia MD CC: Tammie Fang; Anderson Gaston MD; Kayla Mcmanus MD Date Dictated: 12/11/17915 Date Transcribed: 12/12/17846 Hand Packager: Signed BEDSIDE GLUCOSE Collected: 12/12/2017 Status: F Source: [facility]ALI 7:53 AM [facility] REPOSITORY TYPE CODE TESTS RESULT OUT OF REFERENCE UNITS RANGE LAB L501.080 70-110 mg/dL Low BEDSIDE GLU 45 Result Comment: MANAGEMENT OF PATIENT CARE PER NURSING PROTOCOL Performed By: #### L501.080 #### [facility] Point of Care [address] [place] [address] BEDSIDE GLUCOSE Collected: 12/12/2017 Status: F Source: [facility] 6:58 AM [facility] REPOSITORY TYPE CODE TESTS RESULT OUT OF RANGE REFERENCE UNITS LAB L501.080 70-110 mg/dL Normal BEDSIDE GLU 71 Result Comment: MANAGEMENT OF PATIENT CARE PER NURSING PROTOCOL Performed By: #### L501.080 #### [facility] Point of Care [address] [place], [place] [address] BASIC METABOLIC Collected: 12/12/2017 Status: F Source: [facility] PROFILE (BMP) 6:00 AM [facility] REPOSITORY TYPE CODE TESTS RESULT OUT OF RANGE REFERENCE UNITS LAB L501.0100 74-106 mg/dL Normal GLU 105 Result Comment: Fasting Glucose result from 100 to 125 mg/dL suggests IMPAIRED HOMEOSTASIS per A.D.A. criteria. Please note revised GLUCOSE reference range effective 2017. LAB L501.1000 7-18 mg/dL High BUN 58 LAB L501.1100 0.70-1.30 mg/dL High CREAT,SERUM 2.83 Result Comment: The validity of the calculated GFR AND GFRAA in patients over 70 years has not been determined. Clinical correlation is essential. LAB L501.1110 >60 mL/min Low EST GFR 25 Result Comment: Non- GFR Calc LAB L501.1115 >60 mL/min Low EST GFR - AA 31 Result Comment: GFR Calc LAB L501.1255 ml/min Normal Estimated CRCL 30.55 LAB L501.1300 10-20 RATIO High BUN/CRE 20.5 LAB L501.2200 8.5-10 mg/dL Low .1 CA 8.3 LAB L501.5300 136-14 mmol/L Normal 5 NA 142 LAB L501.5600 3.5-5. mmol/L Normal 1 K 3.8 LAB L501.5900 98-107 mmol/L Normal CL 102 LAB L501.6100 21.0-3 mmol/L Normal 2.0 CO2 32.0 LAB L501.6200 5-15 Normal GAP 8 Performed By: #### L500.2500, L501.2300, L501.5200 #### [facility] [address] [place], [place], [address] PHOSPHORUS Collected: 12/12/2017 Status: F Source: TALI 6:00 AM [facility] REPOSITORY TYPE CODE TESTS RESULT OUT OF RANGE REFERENCE UNITS LAB L501.2300 2.5-4.9 mg/dL Normal PHOS 4.0 Performed By: #### L500.2500, L501.2300, L501.5200 #### [facility] [address] [place], [address] MAGNESIUM Collected: 12/12/2017 Status: F Source: TALI 6:00 AM [facility] REPOSITORY TYPE CODE TESTS RESULT OUT OF RANGE REFERENCE UNITS LAB L501.5200 1.6-2.6 mg/dL Normal MG 2.0 Result Comment: Please note revised Magnesium reference range effective 2017. Performed By: #### L500.2500, L501.2300, L501.5200 #### [facility] [address] [place], [address] BEDSIDE GLUCOSE Collected: 12/11/2017 Status: F Source: TALI 10:45 PM [facility] REPOSITORY TYPE CODE TESTS RESULT OUT OF REFERENCE UNITS RANGE LAB L501.080 70-110 mg/dL High BEDSIDE GLU 272 Result Comment: MANAGEMENT OF PATIENT CARE PER NURSING PROTOCOL Performed By: #### L501.080 #### [facility] Point of Care [address] [place] [address] BEDSIDE GLUCOSE Collected: 12/11/2017 Status: F Source: TALI 4:13 PM [facility] REPOSITORY TYPE CODE TESTS RESULT OUT OF REFERENCE UNITS RANGE LAB L501.080 70-110 mg/dL High BEDSIDE GLU 212 Result Comment: MANAGEMENT OF PATIENT CARE PER NURSING PROTOCOL Performed By: #### L501.080 #### [facility] Point of Care [address] [place] [address] BEDSIDE GLUCOSE Collected: 12/11/2017 Status: F Source: TALI 11:15 AM [facility] REPOSITORY TYPE CODE TESTS RESULT OUT OF REFERENCE UNITS RANGE LAB L501.080 70-110 mg/dL High BEDSIDE GLU 193 Result Comment: MANAGEMENT OF PATIENT CARE PER NURSING PROTOCOL Performed By: #### L501.080 #### [facility] Point of Care [address] [place] [address] BEDSIDE GLUCOSE Collected: 12/11/2017 Status: F Source: TALI 6:43 AM [facility] REPOSITORY TYPE CODE TESTS RESULT OUT OF REFERENCE UNITS RANGE LAB L501.080 70-110 mg/dL High BEDSIDE GLU 162 Result Comment: MANAGEMENT OF PATIENT CARE PER NURSING PROTOCOL Performed By: #### L501.080 #### [facility] [place] [address] CBC W/DIFF, AUTOMATED Collected: 12/11/2017 Status: F Source: TALI 6:10 AM [facility] REPOSITORY TYPE CODE TESTS RESULT OUT OF RANGE REFERENCE UNITS LAB L100.1000 4.4-11.0 K/mm3 Normal WBC 7.4 LAB L100.1200 4.6-6.2 M/mm3 Low RBC 3.38 LAB L100.1300 13.0-16.5 g/dl Low HGB 10.2 LAB L100.1400 40-54 % Low HCT 29.9 LAB L100.1500 80-94 fL Normal MCV 88.5 LAB L100.1600 27.0-32.0 pg Normal MCH 30.2 LAB L100.1700 32-36 g/gl Normal MCHC 34.1 LAB L100.1810 11.6-14.6 % Normal RDW CV 12.4 LAB L100.1820 35.1-43.9 fl Normal RDW SD 38.1 LAB L100.1900 150-450 K/mm3 Normal PLT 262 LAB L100.2000 6.2-12.0 fl Normal MPV 8.6 LAB L100.2100 47-70 % High NEUT% 76.9 LAB L100.2200 19-41 % Low LY% 14.1 LAB L100.2300 0-10 % Normal MONO% 7.7 LAB L100.2400 0-5 % Normal EO% 0.9 LAB L100.2500 0-1 % Normal BASO% 0.1 LAB L100.2550 0.0-0.9 % Normal IM GRAN % 0.300 Result Comment: IG% - Immature Granulocytes (promyelocytes, myelocytes and metamyelocytes) > 1% indicates that a LEFT SHIFT is Present. LAB L100.2620 2.0-7.7 X10 3/uL Normal Absolute Neut 5.7 LAB L100.2720 0.83-4.51 X10 3/ul Normal Absolute Lymph 1.04 Performed By: #### L100.0100 #### [facility] [address] [place], [address] BASIC METABOLIC Collected: 12/11/2017 Status: F Source: [facility]ALI PROFILE (BMP) 6:10 AM [facility] REPOSITORY TYPE CODE TESTS RESULT OUT OF RANGE REFERENCE UNITS LAB L501.0100 74-106 mg/dL High GLU 151 Result Comment: Fasting Glucose result greater than or equal to 126 mg/dL suggests DIABETES MELLITUS per A.D.A. criteria. Please note revised GLUCOSE reference range effective 2017. LAB L501.1000 7-18 mg/dL High BUN 61 LAB L501.1100 0.70-1.30 mg/dL High CREAT,SERUM 2.65 Result Comment: The validity of the calculated GFR AND GFRAA in patients over 70 years has not been determined. Clinical correlation is essential. LAB L501.1110 >60 mL/min Low EST GFR 27 Result Comment: Non- GFR Calc LAB L501.1115 >60 mL/min Low EST GFR - AA 33 Result Comment: GFR Calc LAB L501.1255 ml/min Normal Estimated CRCL 32.62 LAB L501.1300 10-20 RATIO High BUN/CRE 23.0 LAB L501.2200 8.5-10 mg/dL Low .1 CA 8.3 LAB L501.5300 136-14 mmol/L Normal 5 NA 141 LAB L501.5600 3.5-5. mmol/L Normal 1 K 4.0 LAB L501.5900 98-107 mmol/L Normal CL 103 LAB L501.6100 21.0-3 mmol/L Normal 2.0 CO2 29.0 LAB L501.6200 5-15 Normal GAP 9 Performed By: #### L500.2500, L500.4100, L501.5200, L501.9520 #### [facility] [address] [place], [address] LIPID PROFILE Collected: 12/11/2017 Status: F Source: TALI 6:10 AM [facility] REPOSITORY TYPE CODE TESTS RESULT OUT OF RANGE REFERENCE UNITS LAB L501.4900 200 mg/dL Normal CHOL 105 Result Comment: <200 mg/dL Desirable 200-240 mg/dL Borderline >240 mg/dL High Risk LAB L501.5000 mg/dL Normal TRIG 68 Result Comment: The drugs N-Acetylcysteine and Metamizole may falsely depress this assay. Serum Triglycerides Reference Interval Normal <150 mg/dL Borderline high 150 - 199 mg/dL High 200 - 499 mg/dL Very High > or = 500 mg/dL LAB L501.6400 mg/dL Normal HDL 42 Result Comment: The drugs N-Acetylcysteine and Metamizole may falsely depress this assay. Reference Range HDL <40 mg/dL Low HDL Cholesterol HDL >or= 60 mg/dL High HDL Cholesterol LAB L501.6500 0-130 mg/dL Normal LDL 49 LAB L501.6600 5-40 mg/dL Normal VLDL 14 Performed By: #### L500.2500, L500.4100, L501.5200, L501.9520 #### [facility] [address] [place], [address] MAGNESIUM Collected: 12/11/2017 Status: F Source: TALI 6:10 AM [facility] REPOSITORY TYPE CODE TESTS RESULT OUT OF RANGE REFERENCE UNITS LAB L501.5200 1.6-2.6 mg/dL Normal MG 2.1 Result Comment: Please note revised Magnesium reference range effective 2017. Performed By: #### L500.2500, L500.4100, L501.5200, L501.9520 #### [facility] [address] [place], [address] THYROID STIM HORMONE Collected: 12/11/2017 Status: F Source: TALI (TSH) 6:10 AM [facility] REPOSITORY TYPE CODE TESTS RESULT OUT OF RANGE REFERENCE UNITS LAB L501.9520 0.358-3.74 uIU/mL Normal TSH 2.53 Performed By: #### L500.2500, L500.4100, L501.5200, L501.9520 #### [facility] [address] [place], [address] BNP,B-TYPE NATRIURETIC Collected: 12/11/2017 Status: F Source: TALI PEPTIDE 6:10 AM [facility] REPOSITORY TYPE CODE TESTS RESULT OUT OF RANGE REFERENCE UNITS LAB L503.6620 0-100 pg/mL High B-TYPE 408.0 ZARI PEP Performed By: #### L503.6620 #### [facility] [address] [place], [place], [address] BEDSIDE GLUCOSE Collected: 12/11/2017 Status: F Source: [facility] 1:37 AM [facility] REPOSITORY TYPE CODE TESTS RESULT OUT OF REFERENCE UNITS RANGE LAB L501.080 70-110 mg/dL High BEDSIDE GLU 197 Result Comment: MANAGEMENT OF PATIENT CARE PER NURSING PROTOCOL Performed By: #### L501.080 #### [facility] Point of Care [address] [place], [place] [address] TROPONIN-I Collected: 12/10/2017 Status: F Source: [facility] 9:11 PM [facility] REPOSITORY Order Comment: 'TROP' Serial specimen #1, #2, #3, or #4: 3 TYPE CODE TESTS RESULT OUT OF RANGE REFERENCE UNITS LAB L501.4010 <0.06 ng/mL Normal < 0.02 TROPONIN-I Result Comment: TROPONIN-I EXPECTED VALUES <0.05 NEGATIVE 0.06 - 0.59 AT RISK OF NM > OR = 0.60 SUGGEST NM Performed By: #### L501.4010 #### [facility] [address] [place] [address]. [place], [address] BEDSIDE GLUCOSE Collected: 12/10/2017 Status: F Source: [facility] 9:04 PM [facility] REPOSITORY TYPE CODE TESTS RESULT OUT OF REFERENCE UNITS RANGE LAB L501.080 70-110 mg/dL High BEDSIDE GLU 197 Result Comment: MANAGEMENT OF PATIENT CARE PER NURSING PROTOCOL Performed By: #### L501.080 #### [facility] Point of Care [address] [place] [address] BEDSIDE GLUCOSE Collected: 12/10/2017 Status: F Source: [facility] 8:04 PM [facility] REPOSITORY TYPE CODE TESTS RESULT OUT OF REFERENCE UNITS RANGE LAB L501.080 70-110 mg/dL High BEDSIDE GLU 172 Result Comment: MANAGEMENT OF PATIENT CARE PER NURSING PROTOCOL Performed By: #### L501.080 #### [facility] [address] [facility] [place] [address] HISTORY AND PHYSICAL Observed: 12/10/2017 Status: F Source: [facility] EXAM 7:50 PM [facility] REPOSITORY [facility] Medical Records Department [address] [place] [address] History and Physical 12/10/171922 MR#: [id number] Acct: [id number] Name: WILLIAMS BURGOS Rep #: [id number] : 1970 47 From: Kayla Mcmanus MD PCP: Anderson Gaston MD Status: ADM IN Y Location: [place] [address] Problem List (1) Acute on chronic diastolic CHF (congestive heart failure) Status: Acute (2) Acute hypoxemic respiratory failure Status: Acute (3) Hypoglycemia Status: Acute Comment: resolved in ED (4) Nephrosis Status: Chronic (5) HTN (hypertension) Status: Chronic Qualifiers: Hypertension type: essential hypertension (6) Diabetes mellitus type II, uncontrolled Status: Chronic Qualifiers: Diabetes mellitus residential insulin use: with 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 use Diabetes mellitus complication status: with kidney complications Diabetes mellitus complication detail: with chronic kidney disease Chronic kidney disease stage: stage 3 (moderate) Qualified Code(s): E11.22 - Type 2 diabetes mellitus with diabetic chronic kidney disease; E11.65 - Type 2 diabetes mellitus with hyperglycemia; N18.3 - Chronic kidney disease, stage 3 (moderate); Z79.4 - skilled nursing (current) use of insulin (7) Anxiety and depression Status: Chronic (8) GERD (gastroesophageal reflux disease) Status: Chronic Qualifiers: (9) CKD (chronic kidney disease) stage 3, GFR 30-59 ml/min Status: Chronic History of Present Illness Date of Admission: 12/10/17 Chief Complaint: leg edema, short of breath, scrotal edema The patient is a 47 year old M past medical history of chronic diastolic CHF, LVH, hypertension, diabetes mellitus 2 on insulin therapy complicated by neuropathy, retinopathy, nephropathy/nephrosis, obesity, hyperlipidemia, history of coronary artery disease, stage III CKD with anemia in CKD, who was recently admitted for CHF exacerbation and urinary retention. He was actually in the office getting Sky catheter removed today; but was noted to have significant scrotal edema and shortness of breath and was therefore referred to emergency department. ED evaluation Afebrile, heart rate 66, blood pressure 135/94, respirations 18, 96% room air Laboratories pertinent for acceptable CBC, hemoglobin 10.3, BUN 64, creatinine 2.7 (over the past month, baselines have been 2.4-3.7), with hyperglycemia to 40, normal lactic acid, troponin, and acceptable BNP at 367. Urinalysis was noncontributory. Chest x-ray revealed stable heart size, mild congestive changes. He received 25 g of IV dextrose with improvement in blood sugar to 49, and Lasix 40 mg IV. On seeing the patient, he has profound lower extremity, scrotal, and lower abdominal wall edema. He will require admission for IV Lasix diuresis. [] Past Medical History Past Medical History (Chronic Problems): Chronic Problems Nephrosis (Chronic) Obesity (BMI 30-39.9) (Chronic) Noncompliance (Chronic) Diabetic neuropathy (Chronic) Diabetic nephropathy (Chronic) Diabetic retinopathy (Chronic) HTN (hypertension) (Chronic) HLD (hyperlipidemia) (Chronic) Blind left eye (Chronic) Diabetes mellitus type II, uncontrolled (Chronic) Anxiety and depression (Chronic) GERD (gastroesophageal reflux disease) (Chronic) Chewing tobacco nicotine dependence (Chronic) CKD (chronic kidney disease) stage 3, GFR 30-59 ml/min (Chronic) Leg edema, right (Chronic) History of acute myocardial infarction (Chronic) Allergies No Known Allergies Allergy (Verified 11/28/17 08:44) Home Medications: Ambulatory Orders Medication Instructions Recorded Surgical History: cholecystectomy, - - Cholecystectomy, left retinal tear repair attempts, right eye laser surgery. Psychiatric History: Anxiety, Depression Smoking Status: Never smoker - *Family History Maternal History Items: Heart Disease Paternal History Items: Cancer - Father w/ Colon CA. Sibling History Items: Diabetes - sister, brother who passed, no kidney disease Review of Systems Respiratory: Reports: Shortness of breath upon exertion Genitourinary: Reports: Retention - scrotal edema Musculoskeletal: Reports: - - edema Psychiatric: Reports: Depression VTE Information - Inpt Only VTE Present on Admission: No VTE Mechan Device Prophylaxis: None - edema VTE Pharm Prophylaxis ordered?: Yes Patient Problems: Active and Suspected Problems Acute on chronic diastolic CHF (congestive heart failure) (Acute) Acute hypoxemic respiratory failure (Acute) Hypoglycemia (Acute) resolved in ED - Physical Exam General: Alert, Oriented x3, Cooperative, No apparent distress HEENT: Atraumatic, PERRLA Oral: Moist Mucosa Neck: JVD, Bilateral Lungs: Clear to auscultation Cardiovascular: Regular rate, Regular Rhythm, Normal S1, Normal S2 Abdomen: Bowel Sounds Present, No Hepato-splenomegaly, Distended, - - flank edema, scrotal edema Extremities: Edema Vital Signs Temp Pulse Resp BP Pulse Ox 97.4 F L 71 16 134/82 H 96 12/10/17 18:58 12/10/17 19:18 12/10/17 19:18 12/10/17 19:18 12/10/17 19:18 Oxygen Flow Rate (L/min) 2 Oxygen Delivery Method Nasal Cannula Weight: 253 lb 4.978 oz Body Mass Index (BMI) 38.5 Finger Stick Blood Glucose 149 Laboratory Tests Past 24 Hrs WBC RBC Hgb Hct MCV MCH MCHC RDW POC Glucose POC Glucose 149 H Assessment/Plan Active and Suspected Problems Acute on chronic diastolic CHF (congestive heart failure) (Acute) Acute hypoxemic respiratory failure (Acute) Hypoglycemia (Acute) resolved in ED 87-year-old patient with past medical history of chronic diastolic CHF (echo 11/20/2017 revealed concentric LVH, EF 65%, normal RV size and function, normal atria and tricuspid valve, RVSP not estimated due to technically difficult study), DM 2 on insulin therapy complicated by diabetic nephropathy/nephrosis, neuropathy, retinopathy, CKD 3, urinary retention felt secondary to neurogenic bladder, hypertension, hyperlipidemia, blind left eye, anxiety depression, GERD, and obesity, who presented to emergency department on referral from urology clinic. His catheter was removed today. He was noted to have significant anasarca of the lower extremities, abdomen, and scrotal areas. He was referred for diuretic therapy. 1. Acute on chronic diastolic CHF with anasarca, multifactorial, in the setting of nephrosis, CKD, HTN, LVH, significant scrotal edema 2. Acute hypoxemic respiratory failure secondary to #1 3. Hypoglycemia, resolved in ED s/p 25 gm dextrose IV 4. DVT prophylaxis -- subQ heparin Plan: Admit PCU Telemetry monitoring and serial cardiac biomarkers Sky Medication management -->hold amlodipine in the setting of significant edema, continue atenolol, initiate Lasix drip 10 mg/h Proair prn Serial chemistries, magnesium, BNP in a.m. Oxygen titration policy Accuchecks AC/HS Lantus 40 units at bedtime (hold if HS glucose is less than 140), hold NovoLog 15 units mealtime insulin, NovoLog low dosing scale prandial, and at bedtime check bilateral LE duplex to exclude DVT - routine Chronic issues: Urinary retention -- Sky was removed in urology clinic; will need to replace due to scrotal edema and accurate measurement of I/O; continue Flomax Hyperlipidemia - statin GERD Diabetes mellitus 2 on insulin, complicated by neuropathy, nephropathy, retinopathy, neurogenic bladder -- see above, continue gabapentin CKD3 -creatinines ranging 2.47 - 3.74 over past month, best was creatinine 1.9 in 04/2017. Not hyperkalemic anemia in CKD hx CAD -- continue ASA, betablocker, statin depression - Wellbutrin 12/10/17 1950 <Electronically signed by Kayla Mcmanus MD> Date Kayla Mcmanus MD Cosign Signature: Date (if applicable) CC: Anderson Gaston MD; Kayla Mcmanus MD Signed EMERGENCY DEPARTMENT Observed: 12/10/2017 Status: F Source: [facility] SUMMARY 7:21 PM [facility] REPOSITORY [facility] Medical Records Department [address] [place] [address] Emergency Department Summary 12/10/17 1726 MR#: [id number] Acct: [id number] Name: WILLIAMS BURGOS Rep #: [id number] : 1970 47 From: Alana Orozco MD PCP: Anderson Gaston MD Status: REG ER - ER Visit Summary Date of Service: 12/10/17 Chief Complaint: Low blood sugar History of Present Illness: The patient is a [address] Arriola's office for low blood sugar. Patient states that he was at Dr. Arriola's office to have his catheter removed. He was recently admitted to the hospital and discharged last Saturday. He was in the hospital for 9 days for CHF and kidney failure. He has had lower extremity swelling as well as groin swelling. He takes insulin NovoLog 15 units 3 times daily and Lantus 65 units at night. He states he ate a normal diet today. On arrival blood sugar is 34. Physical Examination: Vitals are stable. Patient is afebrile. Alert no acute distress. Pulse ox in the mid 80s on room air. 94% on 4 L. HEENT exam is unremarkable. Neck is supple. Lungs are diminished bilaterally. Heart is regular rate and rhythm. Abdomen is soft nontender nondistended. : Significant edema of the scrotum, no signs of infection. Extremities symmetric edema Skin pallor No focal neurologic deficit. Remainder of exam is unremarkable. Emergency Department Course and Treatment: He was given amp of D50 and orange juice on arrival. EKG is sinus rate is 63 unchanged from previous. Chest x- ray shows moderate pulmonary vascular congestion and bilateral effusions. CBC normal except for hemoglobin 10.3. Chemistries normal except for BUN 64, creatinine 2.72. Troponin negative. Repeat BGT 149. BNP 366.8. Lactic acid is 1.1. He is tolerating p.o. in the emergency department. He is given Lasix IV. Will discuss with hospitalist for admission. Disposition: Admission Impression: Hypoglycemia, CHF with fluid overload, hypoxia This note was generated with [employer] dictation software. It may contain incorrect words, spelling, and punctuation that were not noted in review of the chart prior to signing ED Disposition - Plan for ED Patient: Chief Complaint: Hypoglycemia Referrals: Anderson Gaston MD [Primary Care Provider] - What to do if you have Problems For any increased pain, shortness of breath, bleeding, nausea or vomiting, chest pain, or any unexpected problems, contact your Primary Care Provider. Call [facility] ([phone]) or report to the closest Emergency Room. Call 911 if necessary. 12/10/171920 <Electronically signed by Alana Orozco MD> Date Alana Orozco MD Cosigner Signature (If Indicated): Date CC: Anderson Gaston MD URINALYSIS, COMPLETE Collected: 12/10/2017 Status: F Source: [facility] 6:45 PM [facility] REPOSITORY Order Comment: How was Urine Obtained? CLEAN CATCH TYPE CODE TESTS RESULT OUT OF RANGE REFERENCE UNITS LAB L400.3000 Yellow COLOR Normal Yellow LAB L400.3050 Clear Normal CLARITY Cloudy LAB L400.3200 Normal mg/dl High 50 GLUCOSE, UR LAB L400.3300 Negative mg/dL Normal BILIRUBIN URINE Negative LAB L400.3400 Negative mg/dl Normal KETONE UR Negative LAB L400.3465 1.002-1.030 Normal SP.GR. DIPSTX 1.015 LAB L400.3550 5.0 - 8.0 pH UR Normal 6.0 LAB L400.3600 Negative mg/dl High PROT DIPSTX 500 LAB L400.3700 Normal mg/dl Normal UROBILI Normal LAB L400.3750 Negative Normal NITRITE UR Negative LAB L400.3780 Negative /ul High OCCULT BLOOD-UR 250 LAB L400.3800 Negative /ul High LEUK 25 ESTERASE LAB L400.4050 0-5 /hpf WBC Normal 5-10 SEEN LAB L400.4100 0-5 /hpf > Normal RBC-UA 100 SEEN LAB L400.4150 0-5 /hpf SQUAM 0 Normal EPI SEEN LAB L400.4300 None Seen /hpf 0 Normal BACTERIA SEEN LAB L400.4350 <or=2+ /hpf 0 Normal MUCUS, URINE SEEN LAB L400.4900 1+ Normal AMORPHOUS Performed By: #### L400.0001 #### [facility] [address] [facility] [place], [address] LACTIC ACID Collected: 12/10/2017 Status: F Source: [facility] 5:25 PM [facility] REPOSITORY Order Comment: Yes/No query for Sepsis Lactate Rule Y TYPE CODE TESTS RESULT OUT OF RANGE REFERENCE UNITS LAB L503.6005 0.4-2.0 mmol/L Normal LACTIC ACID 1.1 Performed By: #### L503.6005 #### [facility] [address] [place], [address] BEDSIDE GLUCOSE Collected: 12/10/2017 Status: F Source: [facility] 5:22 PM [facility] REPOSITORY TYPE CODE TESTS RESULT OUT OF REFERENCE UNITS RANGE LAB L501.080 70-110 mg/dL High BEDSIDE GLU 149 Result Comment: MANAGEMENT OF PATIENT CARE PER NURSING PROTOCOL Performed By: #### L501.080 #### [facility] Point of Care [address] [place] [address] CHEST 1 VIEW Observed: 12/10/2017 Status: F Source: [facility] (PORTABLE) 5:13 PM [facility] REPOSITORY [facility] Imaging Services [address] [place] [address] Chest 1 View (Portable) MR#: [id number] Acct: [id number] Name: WILLIAMS BURGOS Rep #: [id number] : 1970 M 47 From: Torres Islas MD PCP: Anderson Gaston MD Status: REG ER Study: Chest 1 View (Portable) Date of Exam: 12/10/17 Exam# [id number] Ordering Dr: Alana Orozco MD STUDY: X-RAY CHEST REASON FOR EXAM: Male, 47 years old. Chest pain TECHNIQUE: Frontal view of the chest COMPARISON: 12/03/2017 FINDINGS: There are moderate congestive changes. This is worse when compared with the prior exam. There are no focal infiltrates. There are small bilateral pleural effusions. The heart is mildly enlarged, but stable in size. The visualized osseous structures are within normal limits. RAD/Chest 1 View (Portable) IMPRESSION: Moderate pulmonary vascular congestion which is worse when compared with the prior exam. Small bilateral pleural effusions. Stable mild cardiomegaly. Electronically Signed: Torres Islas, at 18:02 EDT Tel , Service support , CC: Alana Orozco MD; Anderson Gaston MD Hand Packager: Signed BEDSIDE GLUCOSE Collected: 12/10/2017 Status: F Source: [facility] 5:01 PM [facility] REPOSITORY TYPE CODE TESTS RESULT OUT OF REFERENCE UNITS RANGE LAB L501.080 70-110 mg/dL Low alert BEDSIDE GLU 34 Result Comment: MANAGEMENT OF PATIENT CARE PER NURSING PROTOCOL Performed By: #### L501.080 #### [facility] Point [place] [address] CBC W/DIFF, AUTOMATED Collected: 12/10/2017 Status: F Source: [facility] 5:00 PM [facility] REPOSITORY TYPE CODE TESTS RESULT OUT OF RANGE REFERENCE UNITS LAB L100.1000 4.4-11.0 K/mm3 Normal WBC 7.5 LAB L100.1200 4.6-6.2 M/mm3 Low RBC 3.49 LAB L100.1300 13.0-16.5 g/dl Low HGB 10.3 LAB L100.1400 40-54 % Low HCT 30.9 LAB L100.1500 80-94 fL Normal MCV 88.5 LAB L100.1600 27.0-32.0 pg Normal MCH 29.5 LAB L100.1700 32-36 g/gl Normal MCHC 33.3 LAB L100.1810 11.6-14.6 % Normal RDW CV 12.4 LAB L100.1820 35.1-43.9 fl Normal RDW SD 38.7 LAB L100.1900 150-450 K/mm3 Normal PLT 267 LAB L100.2000 6.2-12.0 fl Normal MPV 8.7 LAB L100.2100 47-70 % Normal NEUT% 67.4 LAB L100.2200 19-41 % Normal LY% 22.1 LAB L100.2300 0-10 % Normal MONO% 9.0 LAB L100.2400 0-5 % Normal EO% 1.1 LAB L100.2500 0-1 % Normal BASO% 0.3 LAB L100.2550 0.0-0.9 % Normal IM GRAN % 0.100 Result Comment: IG% - Immature Granulocytes (promyelocytes, myelocytes and metamyelocytes) > 1% indicates that a LEFT SHIFT is Present. LAB L100.2620 2.0-7.7 X10 3/uL Normal Absolute Neut 4.8 LAB L100.2720 0.83-4.51 X10 3/ul Normal Absolute Lymph 1.57 Performed By: #### L100.0100 #### [facility] [place], [address] BASIC METABOLIC Collected: 12/10/2017 Status: F Source: [facility] PROFILE (BMP) 5:00 PM [facility] REPOSITORY Order Comment: 'TROP' Serial specimen #1, #2, #3, or #4: 1 TYPE CODE TESTS RESULT OUT OF RANGE REFERENCE UNITS LAB L501.0100 74-106 mg/dL Low alert GLU 40 Result Comment: Critical Result(s) Called at: 18:07:42 12/10/2017 by: Sanjuana Cherry to [facility] Glucose result less than 50 mg/dL suggests HYPOGLYCEMIA. Please note revised GLUCOSE reference range effective 2017. LAB L501.1000 7-18 mg/dL High BUN 64 LAB L501.1100 0.70-1.30 mg/dL High CREAT,SERUM 2.72 Result Comment: The validity of the calculated GFR AND GFRAA in patients over 70 years has not been determined. Clinical correlation is essential. LAB L501.1110 >60 mL/min Low EST GFR 27 Result Comment: Non- GFR Calc LAB L501.1115 >60 mL/min Low EST GFR - AA 32 Result Comment: GFR Calc LAB L501.1255 ml/min Normal Estimated CRCL 31.78 LAB L501.1300 10-20 RATIO High BUN/CRE 23.5 LAB L501.2200 8.5-10 mg/dL Normal .1 CA 8.5 LAB L501.5300 136-14 mmol/L Normal 5 NA 139 LAB L501.5600 3.5-5. mmol/L Normal 1 K 4.0 LAB L501.5900 98-107 mmol/L Normal CL 105 LAB L501.6100 21.0-3 mmol/L Normal 2.0 CO2 27.0 LAB L501.6200 5-15 Normal GAP 7 Performed By: #### L500.2500, L501.4010 #### [facility] [address], [address] TROPONIN-I Collected: 12/10/2017 Status: F Source: [facility] 5:00 PM [facility] REPOSITORY Order Comment: 'TROP' Serial specimen #1, #2, #3, or #4: 1 TYPE CODE TESTS RESULT OUT OF RANGE REFERENCE UNITS LAB L501.4010 <0.06 ng/mL Normal < 0.02 TROPONIN-I Result Comment: TROPONIN-I EXPECTED VALUES <0.05 NEGATIVE 0.06 - 0.59 AT RISK OF NM > OR = 0.60 SUGGEST NM Performed By: #### L500.2500, L501.4010 #### [facility] [address] [place], [address] BNP,B-TYPE NATRIURETIC Collected: 12/10/2017 Status: F Source: [facility] [place] 5:00 PM [facility] REPOSITORY TYPE CODE TESTS RESULT OUT OF RANGE REFERENCE UNITS LAB L503.6620 0-100 pg/mL High B-TYPE 366.8 ZARI PEP Performed By: #### L503.6620 #### [facility] [address] [place], [address] DISCHARGE SUMMARY Observed: 12/06/2017 Status: F Source: [facility] 5:39 PM [facility] REPOSITORY [facility] Medical Records Department [address] [facility] [place] [address] Discharge Summary 12/06/17 1623 MR#: [id number] Acct: [id number] Name: WILLIAMS BURGOS Mery Rep #: [id number] : 1970 46 From: Sadiq Navarro MD PCP: Anderson Gaston MD Status: ADM IN Y Location: [place] [address] Discharge Date and Diagnosis - Problem List Patient Problems: Active and Suspected Problems Retention, urine (Acute) Acute respiratory failure with hypoxia (Acute) Date of Admission: 11/28/17 Date of Discharge: 12/06/17 - Primary Discharge Diagnosis Active and Suspected Problems 1. Acute respiratory failure secondary to acute on chronic diastolic CHF/pulmonary hypertension: Hypoxia resolved. Patient pulse ox 93% on room air. 2. Acute exacerbation of chronic diastolic heart failure secondary to noncompliance and non-continuation of his Lasix: Echo done on 11/20/2017 could not estimate RVSP because of technically difficult study. Moderate concentric LVH with EF 65%. Normal RV size and systolic function. Normal right and left atria. Normal tricuspid valve. IVC collapse with sniff with normal IVC reported. Type II DM complicated by a diabetic nephropathy and peripheral neuropathy 3. ILDA on CKD stage III; most probably from CHF/intravascular fluid shift/post renal probably from neurogenic bladder: Subacute urine retention most probably due to chronic neurogenic bladder 4. Nephrotic range proteinuria likely secondary to type II DM, diabetic nephropathy: - Secondary Discharge Diagnosis Chronic Problems Obesity (BMI 30-39.9) (Chronic) Noncompliance (Chronic) Diabetic neuropathy (Chronic) Diabetic nephropathy (Chronic) Diabetic retinopathy (Chronic) HTN (hypertension) (Chronic) HLD (hyperlipidemia) (Chronic) Blind left eye (Chronic) Diabetes mellitus type II, uncontrolled (Chronic) Anxiety and depression (Chronic) GERD (gastroesophageal reflux disease) (Chronic) Chewing tobacco nicotine dependence (Chronic) CKD (chronic kidney disease) stage 3, GFR 30-59 ml/min (Chronic) Leg edema, right (Chronic) History of acute myocardial infarction (Chronic) Hospital Course and Treatment Operations: None Summary of Care Provided: The patient is a 47 year old M with PMHx of chronic diastolic heart failure, hypertension, type 2 DM complicated by neuropathy, retinopathy, and nephropathy, recently admitted with acute on chronic diastolic heart failure and hypertensive emergency as well as nephrotic range proteinuria. He has been re-admitted with shortness of breath, weight gain, and bilateral leg swelling. And examined today General: Alert, Oriented x3, Cooperative HEENT: Atraumatic, PERRLA, EOMI, Normocephalic Neck: Supple, No JVD, Negative Carotid Bruits Lungs: Diminished, Rales Cardiovascular: Regular rate, Regular Rhythm, Normal S1, Normal S2, No murmurs Abdomen: Bowel Sounds Present, Soft, Non Tender, Non-Distended, - - Catheter draining clear urine. Penile and scrotal edema. Extremities: Capillary Refill Less than 3 Seconds, Edema Skin: No rashes, No breakdown Musculoskeletal: No Tenderness to Palpation of Joints or Extremities Neurological: Cranial nerves II-XII grossly intact Psych/Mental Status: Normal Affect, Appropriate 1. Acute respiratory failure secondary to acute on chronic diastolic CHF/pulmonary hypertension, patient is on intermittent Bipap and oxygen, Lasix 40 mg twice daily, continue to wean off for spo2>94%, incentive spirometer. Hypoxia resolved. Patient pulse ox 93% on room air. 2. Acute exacerbation of chronic diastolic heart failure secondary to noncompliance and non-continuation of his Lasix: On Lasix 40 mg twice daily. Optimize the volume status with the strict monitoring of I and O's. Moderate bilateral pleural effusion with diffuse pulmonary edema. Echo done on 11/20/2017 could not estimate RVSP because of technically difficult study. Moderate concentric LVH with EF 65%. Normal RV size and systolic function. Normal right and left atria. Normal tricuspid valve. IVC collapse with sniff with normal IVC reported. Type II DM complicated by nephropathy, neuropathy, peripheral neuropathy, BS is fairly uncontrolled,continue on Levemir, premeal novolog at 10units TID, and accucheks with ISS. On NovoLog 10 units at bedtime daily. 3. ILDA on CKD stage III; most probably from CHF/intravascular fluid shift/post renal probably from neurogenic bladder: creatinine is 3.35- 3.74; holding good on the diuretic. Sky catheter removed. No spontaneous urination. Possible neurogenic bladder. CT abdomen done on 11/20/2012 shows normal both kidneys but distended urinary bladder with normal visualized prostate gland. Subacute urine retention most probably due to chronic neurogenic bladder patient seen by Dr. Garcia. He advised to leave the Sky catheter and wait for penile and scrotal edema to subside. Patient is to follow-up in the office in 2-3 weeks and then trial. Increased Flomax twice daily. May consider bethanechol as an outpatient. 4. 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 Obesity, diet and exercise is recommended 6. CAD status post NM, aspirin, statin, beta-elizabeth, will continue to monitor on telemetry 7. DVT prophylaxis with heparin subcut Patient can walk comfortably. SNF was denied. Patient is being discharged with home health care. Discharge medication reconciliation done. Discharge follow-up instructions completed. Patient needs outpatient PFT and sleep study as I think patient might have restrictive lung disease/obstructive sleep apnea. There is suspicion of pulmonary hypertension. Total time spent, exact 32 minutes on discharge meds reconciliation, examination, review of imaging and blood test and discussion with the patient on follow-up instructions. This note was generated with [employer] dictation software. Every effort was made to ensure accuracy, however computerized veneer splicer mistakes may persist. Discharge Activity: May not drive while taking narcotic pain medications. Home Medications: Medications to take at Discharge Gabapentin [Neurontin] 300 mg PO TIDCM 07/15/13 Amlodipine [Norvasc] 5 mg PO DAILY 05/06/17 Bupropion HCl [Wellbutrin Xl] 300 mg PO DAILY 05/06/17 Aspirin 81 mg PO DAILY 11/19/17 Atorvastatin Calcium [Lipitor] 20 mg PO DAILY 11/19/17 Atenolol [Tenormin (beta elizabeth)] 100 mg PO DAILY 11/28/17 Ranitidine HCl [Zantac] 300 mg PO DINNER 11/28/17 Insulin Aspart [Novolog Flexpen] See Protocol SC ACHS flexpen 12/05/17 Psyllium [Metamucil] 1 packet PO DAILY PRN PRN packet 12/05/17 Albuterol Inhaler [Ventolin Hfa] 2 puff INHALATION Q4H PRN PRN #1 inhaler 12/06/17 Furosemide 40 mg PO BID #60 tab 12/06/17 Insulin Aspart [Novolog Flexpen] 15 units SC TIDCM #1 flexpen 12/06/17 Insulin Glargine [Lantus SoloStar Pen] 40 units SC QHS #1 pen 12/06/17 Tamsulosin HCl [Flomax] 0.4 mg PO BID@0830,1730 #60 cap 12/06/17 Following Prescrptions Were Given to Patient: Albuterol Inhaler [Ventolin Hfa] 2 puff INHALATION Q4H PRN PRN #1 inhaler PRN Reason: Sob AND /Or Wheezing Insulin Glargine [Lantus SoloStar Pen] 40 units SC QHS #1 pen Tamsulosin HCl [Flomax] 0.4 mg PO BID@0830,1730 #60 cap Furosemide 40 mg PO BID #60 tab Insulin Aspart [Novolog Flexpen] 15 units SC TIDCM #1 flexpen Primary Care Physician: Anderson Gaston MD [Primary Care Provider] - Please follow up with your Primary Care Physician in: In 2 weeks Please Follow Up With: Jasper,Irma, CVIR TECH-C When: in 2 week Please Follow Up With: Vj Cabral MD When: in 3 weeks Please Follow Up With: Joao Hayes DO When: in 4 weeks for PFT Please Follow Up With: Norah Adams CVIR TECH-C Medical Necessity - Tobacco Use Smoking Status: Never smoker Tobacco Use: Non-smoker Meaningful Use Info Meaningful Use Diagnoses (Choose all that apply): None applicable, CHF - CHF TOM/ARB ordered at discharge?: No Reason TOM/ARB not ordered?: Worsening renal dysfunctn, Worsening renal function Documented LVEF (%): 65 - Diastolic dysfunction Code Visit Inpatient E AND M: [id number] Disch Hosp 12/06/17 1739 <Electronically signed by Sadiq Navarro MD> Date Sadiq Navarro MD Cosigner Signature (if applicable): Date CC: Anderson Gaston MD; Sadiq Navarro MD Signed DISCHARGE INSTRUCTION Observed: 12/06/2017 Status: F Source: [facility] 4:23 PM [facility] REPOSITORY [facility] Medical Records Department [address] [place] [address] Instructions for Home/Discharge Instructions 12/06/17 1159 MR#: [id number] Acct: [id number] Name: BURGOSWILLIAMS Mery Rep #: [id number] : 1970 46 From: Sadiq Navarro MD PCP: Anderson Gaston MD Status: ADM IN - Discharge Diagnoses Current Active Problems: Current Active and Chronic Problems Retention, urine (Acute) Acute respiratory failure with hypoxia (Acute) You will use the following diet at home:: Calorie/Carbohydrate Controlled (specify 1200, 1400, etc) - 1800 ADA Discharge Activity: May not drive while taking narcotic pain medications. Additional Instructions: Patient is recommended outpatient sleep study test. Allergies/Adverse Reactions: Allergies No Known Allergies Allergy (Verified 11/28/17 08:44) Medications to take at Discharge Gabapentin [Neurontin] 300 mg PO TIDCM 07/15/13 Amlodipine [Norvasc] 5 mg PO DAILY 05/06/17 Bupropion HCl [Wellbutrin Xl] 300 mg PO DAILY 05/06/17 Aspirin 81 mg PO DAILY 11/19/17 Atorvastatin Calcium [Lipitor] 20 mg PO DAILY 11/19/17 Atenolol [Tenormin (beta elizabeth)] 100 mg PO DAILY 11/28/17 Ranitidine HCl [Zantac] 300 mg PO DINNER 11/28/17 Insulin Aspart [Novolog Flexpen] See Protocol SC ACHS flexpen 12/05/17 Psyllium [Metamucil] 1 packet PO DAILY PRN PRN packet 12/05/17 Albuterol Inhaler [Ventolin Hfa] 2 puff INHALATION Q4H PRN PRN #1 inhaler 12/06/17 Furosemide 40 mg PO BID #60 tab 12/06/17 Insulin Aspart [Novolog Flexpen] 15 units SC TIDCM #1 flexpen 12/06/17 Insulin Glargine [Lantus SoloStar Pen] 40 units SC QHS #1 pen 12/06/17 Tamsulosin HCl [Flomax] 0.4 mg PO BID@0830,1730 #60 cap 12/06/17 The following prescriptions were given: Albuterol Inhaler [Ventolin Hfa] 2 puff INHALATION Q4H PRN PRN #1 inhaler PRN Reason: Sob AND /Or Wheezing Insulin Glargine [Lantus SoloStar Pen] 40 units SC QHS #1 pen Tamsulosin HCl [Flomax] 0.4 mg PO BID@0830,1730 #60 cap Furosemide 40 mg PO BID #60 tab Insulin Aspart [Novolog Flexpen] 15 units SC TIDCM #1 flexpen Primary Care Physician: Anderson Gaston MD [Primary Care Provider] - Please follow up with your Primary Care Physician in: In 2 weeks Please Follow Up With: Irma Villa NP-C When: in 2 week Please Follow Up With: Vj Cabral MD When: in 3 weeks Please Follow Up With: Joao Hayes DO When: in 4 weeks for PFT 12/06/17 7215 <Electronically signed by Sadiq Navarro MD> Date Sadiq Navarro MD CC: Kyrie Garsia MD; Anderson Gaston MD; Loida Montiel DO; Vj Garcia MD BEDSIDE GLUCOSE Collected: 12/06/2017 Status: F Source: [place] 11:28 AM [facility] REPOSITORY TYPE CODE TESTS RESULT OUT OF REFERENCE UNITS RANGE LAB L501.080 70-110 mg/dL High BEDSIDE GLU 153 Result Comment: MANAGEMENT OF PATIENT CARE PER NURSING PROTOCOL Performed By: #### L501.080 #### [facility] Point of Care [address] [place], [place] [address] BEDSIDE GLUCOSE Collected: 12/06/2017 Status: F Source: [place] 6:51 AM [facility] REPOSITORY TYPE CODE TESTS RESULT OUT OF REFERENCE UNITS RANGE LAB L501.080 70-110 mg/dL High BEDSIDE GLU 154 Result Comment: MANAGEMENT OF PATIENT CARE PER NURSING PROTOCOL Performed By: #### L501.080 #### [facility] Point of Care [address] [place] [address] BASIC METABOLIC Collected: 12/06/2017 Status: F Source: [place] PROFILE (BMP) 5:32 AM [facility] REPOSITORY TYPE CODE TESTS RESULT OUT OF RANGE REFERENCE UNITS LAB L501.0100 74-106 mg/dL High GLU 155 Result Comment: Fasting Glucose result greater than or equal to 126 mg/dL suggests DIABETES MELLITUS per A.D.A. criteria. Please note revised GLUCOSE reference range effective 2017. LAB L501.1000 7-18 mg/dL High BUN 77 LAB L501.1100 0.70-1.30 mg/dL High CREAT,SERUM 3.48 Result Comment: The validity of the calculated GFR AND GFRAA in patients over 70 years has not been determined. Clinical correlation is essential. LAB L501.1110 >60 mL/min Low EST GFR 20 Result Comment: Non- GFR Calc LAB L501.1115 >60 mL/min Low EST GFR - AA 24 Result Comment: GFR Calc LAB L501.1255 ml/min Normal Estimated CRCL 25.11 LAB L501.1300 10-20 RATIO High BUN/CRE 22.1 LAB L501.2200 8.5-10 mg/dL Low .1 CA 8.3 LAB L501.5300 136-14 mmol/L Normal 5 NA 140 LAB L501.5600 3.5-5. mmol/L Normal 1 K 4.9 LAB L501.5900 98-107 mmol/L Normal CL 104 LAB L501.6100 21.0-3 mmol/L Normal 2.0 CO2 30.0 LAB L501.6200 5-15 Normal GAP 6 Performed By: #### L500.2500 #### [facility] [address] [place], [address] BEDSIDE GLUCOSE Collected: 12/06/2017 Status: F Source: [place] 3:20 AM [facility] REPOSITORY TYPE CODE TESTS RESULT OUT OF REFERENCE UNITS RANGE LAB L501.080 70-110 mg/dL High BEDSIDE GLU 182 Result Comment: MANAGEMENT OF PATIENT CARE PER NURSING PROTOCOL Performed By: #### L501.080 #### [facility] Point of Care [address] [facility] [place] [address] BEDSIDE GLUCOSE Collected: 12/05/2017 Status: F Source: [place] 9:06 PM [facility] REPOSITORY TYPE CODE TESTS RESULT OUT OF REFERENCE UNITS RANGE LAB L501.080 70-110 mg/dL High BEDSIDE GLU 209 Result Comment: MANAGEMENT OF PATIENT CARE PER NURSING PROTOCOL Performed By: #### L501.080 #### [facility] Point of Care [address] [place] [address] BEDSIDE GLUCOSE Collected: 12/05/2017 Status: F Source: [place] 5:02 PM [facility] REPOSITORY TYPE CODE TESTS RESULT OUT OF RANGE REFERENCE UNITS LAB L501.080 70-110 mg/dL Normal BEDSIDE GLU 99 Result Comment: MANAGEMENT OF PATIENT CARE PER NURSING PROTOCOL Performed By: #### L501.080 #### [facility] Point of Care [address] [place] [address] 12 LEAD ELECTROCARDIOGRAM Observed: 12/05/2017 Status: F Source: [place] 3:39 PM [facility] REPOSITORY [facility] Cardiovascular Services [address] [place] [address] 12 Lead EKG 12/02/17 0021 MR#: [id number] Acct: [id number] Name: WILLIAMS BURGOS Rep #: [id number] : 1970 46 From: Tylor Rudd MD Attending Dr: Sadiq Navarro MD Status: ADM IN Ordering Dr: Donna Salomon MD Date: 12/01/17 Location: [facility] Sex: M C Admitted: 11/28/17 Test Reason : RHYTHM CHANGE Blood Pressure : / mmHG Vent. Rate : 083 BPM Atrial Rate : 083 BPM P-R Int : 164 ms QRS Dur : 098 ms QT Int : 378 ms P-R-T Axes : 022 052 049 degrees QTc Int : 444 ms Sinus rhythm with occasional Premature ventricular complexes Nonspecific T wave abnormality Abnormal ECG When compared with ECG of 28-NOV-2017 08:58, Premature ventricular complexes are now Present Confirmed by TYLOR RUDD MD ([id number]), features editor TOBY WATSON ([id number]) on 12/05/2017 3:38:32 PM Referred By: DESTINI Confirmed By:TYLOR RUDD MD 12/05/17 1538 Date Tylor Rudd MD CC: Donna Salomon MD; Anderson Gaston MD; Sadiq Navarro MD Signed CONSULTATION Observed: 12/05/2017 Status: F Source: [facility] 12:04 PM [facility] REPOSITORY [facility] Medical Records Department [address] [facility] [place] [address] Consultation 12/05/17 1151 MR#: [id number] Acct: [id number] Name: WILLIAMS BURGOS Rep #: [id number] : 1970 46 From: Vj Garcia MD PCP: Anderson Gaston MD Status: ADM IN Y Location: [place] [address] Problem List (1) Retention, urine Status: Acute Reason for Consult Date of Consultation: 12/05/17 Reason for Consultation: Urinary Retention History of Present Illness: The patient is a 47 year old M with type 2 diabetes, poorly controlled, for over 20 years. His complications secondary to the diabetes: ocular, renal, neural, and possibly cardiac. Presented to the emergency room with CHF, difficulty breathing and an elevated creatinine. In the fall 2016 his creatinine was 1.9 and now it was over 8. The CT scan at that time showed significantly dilated bladder, but normal ureters and no evidence of hydronephrosis. He has been catheterized and has over 500 cc. They have tried intermittent cath and patient not able to void. Currently due to the neuropathy has difficulty with ambulation. States that when the urinary retention was discovered he was not having any sensation of needing to void. [] Past Medical History Past Medical History (Chronic Problems): Chronic Problems Obesity (BMI 30-39.9) (Chronic) Noncompliance (Chronic) Diabetic neuropathy (Chronic) Diabetic nephropathy (Chronic) Diabetic retinopathy (Chronic) HTN (hypertension) (Chronic) HLD (hyperlipidemia) (Chronic) Blind left eye (Chronic) Diabetes mellitus type II, uncontrolled (Chronic) Anxiety and depression (Chronic) GERD (gastroesophageal reflux disease) (Chronic) Chewing tobacco nicotine dependence (Chronic) CKD (chronic kidney disease) stage 3, GFR 30-59 ml/min (Chronic) Leg edema, right (Chronic) History of acute myocardial infarction (Chronic) Allergies No Known Allergies Allergy (Verified 11/28/17 08:44) Home Medications: Ambulatory Orders Medication Instructions Recorded Gabapentin [Neurontin] 300 mg PO TIDCM 07/15/13 Amlodipine [Norvasc] 5 mg PO DAILY 05/06/17 Bupropion HCl [Wellbutrin Xl] 300 mg PO DAILY 05/06/17 Surgical History: cholecystectomy, - - Cholecystectomy, left retinal tear repair attempts, right eye laser surgery. Psychiatric History: Anxiety, Depression Lives: Alone Smoking Status: Never smoker Tobacco Use: Non-smoker Alcohol: Rare Drugs: None - *Family History Maternal History Items: Heart Disease Paternal History Items: Cancer - Father w/ Colon CA. Sibling History Items: Diabetes - sister, brother who passed, no kidney disease Review of Systems Comment: Did a general ROS. And patient besides the neuropathy, patient also is having difficulty walking. He has had some evidence of gastroparesis with occasional diarrhea and then constipation. Not aware of any difficulty voiding, other than occasional weak stream and frequency. Patient Problems: Active and Suspected Problems Retention, urine (Acute) Acute respiratory failure with hypoxia (Acute) - Physical Exam General: Alert, Oriented x3 Abdomen: Bowel Sounds Present, Obese, - - Very mild edema of panniculus noted Extremities: Edema Comment: exam circumcised, with indwelling catheter, significant penile and scrot Vital Signs Temp Pulse Resp BP Pulse Ox 97.9 F 85 18 160/68 H 92 12/05/17 09:15 12/05/17 11:03 12/05/17 10:41 12/05/17 09:15 12/05/17 09:15 Oxygen Flow Rate (L/min) [ 2 AMBULATION with Oxygen] Oxygen Flow Rate (L/min) [ 0 AMBULATING on Room Air] Oxygen Flow Rate (L/min) [At 0 REST on Room Air] Oxygen Flow Rate (L/min) 3.5 Oxygen Delivery Method Room Air Weight: 112.3 kg Body Mass Index (BMI) 36.3 Intake and Output for Last 24 Hours Intake Total 1590 / 1590 940 / 940 700 / 700 Output Total 3625 / 3625 3450 / 3450 1000 / 1000 Balance -2035 / -2035 -2510 / -2510 -300 / -300 POC Glucose POC Glucose 81 76 178 H POC Glucose 159 H 109 Assessment/Plan Active and Suspected Problems Retention, urine (Acute) Acute respiratory failure with hypoxia (Acute) On Px unable to give entire descriptions as noted above. Patient has an indwelling catheter, meatus is unremarkable but has significant penile and scrotal edema. Some edema of the talus and thighs. Urine is clear Assessment is likely has chronic neuropathy related to complications from diabetes. I suspect this is affecting the GI and systems. No evidence of hydronephrosis and with the elevated creatinine I suspect this is more related to CHF and diabetic nephropathy. With the significant edema as well as neuropathy patient will be unlikely to void on his own at this time Recommend leaving catheter in for time being Start on Flomax twice daily Unlikely that Proscar or Avodart would be helpful at this age edema settles down and in a few days may try a voiding trial, when ambulatory If no success consider adding bethanechol, but would be difficult to take due to timing, being n.p.o. and do all his other medications. Likely will need to learn self cath at some point Would have patient follow-up in the office in a few weeks. Take you for allowing me to assist in the care of this patient sincerely [facility] 12/05/17 1204 <Electronically signed by Vj Garcia MD> Date Vj Garcia MD Cosigner Signature (if applicable): Date CC: Kyrie Garsia MD; Anderson Gaston MD; Loida Montiel DO; Vj Garcia MD Signed BEDSIDE GLUCOSE Collected: 12/05/2017 Status: F Source: [place] 11:22 AM [facility] REPOSITORY TYPE CODE TESTS RESULT OUT OF RANGE REFERENCE UNITS LAB L501.080 70-110 mg/dL Normal BEDSIDE GLU 81 Result Comment: MANAGEMENT OF PATIENT CARE PER NURSING PROTOCOL Performed By: #### L501.080 #### [facility] Point of Care [address] [place] [address] BEDSIDE GLUCOSE Collected: 12/05/2017 Status: F Source: [place] 6:38 AM [facility] REPOSITORY TYPE CODE TESTS RESULT OUT OF RANGE REFERENCE UNITS LAB L501.080 70-110 mg/dL Normal BEDSIDE GLU 76 Result Comment: MANAGEMENT OF PATIENT CARE PER NURSING PROTOCOL Performed By: #### L501.080 #### [facility] Point of Care [address] [place] [address] BEDSIDE GLUCOSE Collected: 12/04/2017 Status: F Source: [place] 9:28 PM [facility] REPOSITORY TYPE CODE TESTS RESULT OUT OF REFERENCE UNITS RANGE LAB L501.080 70-110 mg/dL High BEDSIDE GLU 178 Result Comment: MANAGEMENT OF PATIENT CARE PER NURSING PROTOCOL Performed By: #### L501.080 #### [facility] Point of Care [address] [place] [address] BEDSIDE GLUCOSE Collected: 12/04/2017 Status: F Source: [place] 5:07 PM [facility] REPOSITORY TYPE CODE TESTS RESULT OUT OF REFERENCE UNITS RANGE LAB L501.080 70-110 mg/dL High BEDSIDE GLU 159 Result Comment: MANAGEMENT OF PATIENT CARE PER NURSING PROTOCOL Performed By: #### L501.080 #### [facility] Point of Care [address] [place] [address] BEDSIDE GLUCOSE Collected: 12/04/2017 Status: F Source: [place] 12:10 PM [facility] REPOSITORY TYPE CODE TESTS RESULT OUT OF RANGE REFERENCE UNITS LAB L501.080 70-110 mg/dL Normal BEDSIDE GLU 109 Result Comment: MANAGEMENT OF PATIENT CARE PER NURSING PROTOCOL Performed By: #### L501.080 #### [facility] Point of Care [address] [place] [address] BEDSIDE GLUCOSE Collected: 12/04/2017 Status: F Source: [place] 6:40 AM [facility] REPOSITORY TYPE CODE TESTS RESULT OUT OF RANGE REFERENCE UNITS LAB L501.080 70-110 mg/dL Normal BEDSIDE GLU 77 Result Comment: MANAGEMENT OF PATIENT CARE PER NURSING PROTOCOL Performed By: #### L501.080 #### [facility] Point of Care [address] [place] [address] RENAL PROFILE Collected: 12/04/2017 Status: F Source: [place] 5:27 AM [facility] REPOSITORY TYPE CODE TESTS RESULT OUT OF RANGE REFERENCE UNITS LAB L501.0100 74-106 mg/dL Normal GLU 93 Result Comment: Please note revised GLUCOSE reference range effective 2017. LAB L501.1000 7-18 mg/dL High BUN 77 LAB L501.1100 0.70-1.30 mg/dL High CREAT,SERUM 3.19 Result Comment: The validity of the calculated GFR AND GFRAA in patients over 70 years has not been determined. Clinical correlation is essential. LAB L501.1110 >60 mL/min Low EST GFR 22 Result Comment: Non- GFR Calc LAB L501.1115 >60 mL/min Low EST GFR - AA 27 Result Comment: GFR Calc LAB L501.1255 ml/min Normal Estimated CRCL 27.40 LAB L501.1300 10-20 RATIO High BUN/CRE 24.1 LAB L501.1800 3.2-5. g/dL Low 0 ALB 1.9 LAB L501.2200 8.5-10 mg/dL Low .1 CA 8.2 LAB L501.2300 2.5-4. mg/dL Normal 9 PHOS 4.6 LAB L501.5300 136-14 mmol/L Normal 5 NA 142 LAB L501.5600 3.5-5. mmol/L Normal 1 K 4.5 LAB L501.5900 98-107 mmol/L Normal CL 107 LAB L501.6100 21.0-3 mmol/L Normal 2.0 CO2 28.0 Performed By: #### L500.3600, L501.5200 #### [facility] [address] [place], [address] MAGNESIUM Collected: 12/04/2017 Status: F Source: [facility] 5:27 AM [facility] REPOSITORY TYPE CODE TESTS RESULT OUT OF RANGE REFERENCE UNITS LAB L501.5200 1.6-2.6 mg/dL Normal MG 2.6 Result Comment: Please note revised Magnesium reference range effective 2017. Performed By: #### L500.3600, L501.5200 #### [facility] [address] [facility] [place], [address] BEDSIDE GLUCOSE Collected: 12/03/2017 Status: F Source: [place] 9:09 PM [facility] REPOSITORY TYPE CODE TESTS RESULT OUT OF REFERENCE UNITS RANGE LAB L501.080 70-110 mg/dL High BEDSIDE GLU 185 Result Comment: MANAGEMENT OF PATIENT CARE PER NURSING PROTOCOL Performed By: #### L501.080 #### [facility] Point of Care [address] [place] [address] BEDSIDE GLUCOSE Collected: 12/03/2017 Status: F Source: [place] 4:22 PM [facility] REPOSITORY TYPE CODE TESTS RESULT OUT OF REFERENCE UNITS RANGE LAB L501.080 70-110 mg/dL High BEDSIDE GLU 112 Result Comment: MANAGEMENT OF PATIENT CARE PER NURSING PROTOCOL Performed By: #### L501.080 #### [facility] Point of Care [address] [place] [address] BEDSIDE GLUCOSE Collected: 12/03/2017 Status: F Source: [facility] 11:21 AM [facility] REPOSITORY TYPE CODE TESTS RESULT OUT OF REFERENCE UNITS RANGE LAB L501.080 70-110 mg/dL High BEDSIDE GLU 192 Result Comment: MANAGEMENT OF PATIENT CARE PER NURSING PROTOCOL Performed By: #### L501.080 #### [facility] Point of Care [address] [place] [address] CHEST PA AND LATERAL Observed: 12/03/2017 Status: F Source: [place] 9:19 AM [facility] REPOSITORY [facility] Imaging Services [address] [place] [address] Chest PA and Lateral MR#: [id number] Acct: [id number] Name: WILLIAMS BURGOS Rep #: [id number] : 1970 M 46 From: Allyssa Degroot MD PCP: Anderson Gaston MD Status: ADM IN Study: Chest PA and Lateral Date of Exam: 12/03/17 Exam# [id number] Ordering Dr: Loida Montiel DO STUDY: X-RAY CHEST REASON FOR EXAM: Male, 46 years old. Shortness of breath TECHNIQUE: Frontal and lateral views of the chest were obtained. COMPARISON: December 01, 2017 FINDINGS: The lungs are underaerated. There are minimal increased markings in both lung bases. There is blunting of both costophrenic angles. There is mild enlargement of the cardiac silhouette. The mediastinum and hilar regions are unremarkable. The central vessels are increased. Normal visualized aortic arch and descending thoracic aorta. There are diffuse degenerative changes of the visualized spine. The visualized ribs, clavicles, and shoulders are unremarkable. Cholecystectomy clips are present. RAD/Chest PA and Lateral IMPRESSION: There is mild enlargement of the cardiac silhouette with diffuse edema and moderate bilateral effusions. Vascularity is slightly improved compared to the prior study. There is minimal bibasilar atelectasis. Electronically Signed: Allyssa Degroot MD at 10:34 EDT Tel Direct: [phone], Service support , CC: Anderson Gaston MD; Loida Montiel DO Hand Packager: Signed CONSULTATION Observed: 12/03/2017 Status: F Source: [facility] 9:17 AM [facility] REPOSITORY [facility] Medical Records Department [address] [place] [address] Consultation 11/28/17 1409 MR#: [id number] Acct: [id number] Name: WILLIAMS BURGOS Rep #: [id number] : 1970 46 From: Loida Montiel DO PCP: Anderson Gaston MD Status: ADM IN Y Location: [place] [address] Consultation - Renal 11/28/17 PCP/ Referring MD: Requesting physician: Donna Araya Primary care physician: Anderson Gaston Reason for Consultation:: CKD stage 3 - History of Present Illness History of Present Illness: The patient is a 46 M with CKD stage 3 with baseline creatinine of 2.5-2.7 presents with increased shortness of breath and leg edema. He was seen on initial consult on 11/21/17 during last hospitalization to ICU with congestive heart failure hypertensive emergency with blood pressure of 200s over 120. His blood pressure is under good control currently. He has a history of noncompliance with diabetes and medications. He was discharged to home with dietary education on low-sodium and diabetic diet. He admits to eating pizza, hot dogs, frozen dinners at home since discharge from the hospital. He does not know what his Lasix doses at home. Appetite has been good without nausea or vomiting. Denied any abdominal pain or diarrhea. Denied any chest pain, near syncope, syncope or fall. He denied any fever chills with his cough. He had increased shortness of breath with supine position like a heavy weight was over him. Chest x-ray shows CHF pattern. Echocardiogram done on November 20 during prior hospitalization showed preserved LV function. He does not wear oxygen at home. He has sleep apnea but does not wear CPAP at night at home. He gets short winded with walking up steps. Troponin level was negative 1. BNP was 388 on admission. - Allergies Allergies: Allergies No Known Allergies Allergy (Verified 11/28/17 08:44) - Current Medications Current Medications: Current Medications Acetaminophen (Tylenol) 650 mg PO Q6H PRN PRN PRN Reason: Mild Pain (scale 0-3)/T>100.7 Bisacodyl (Dulcolax) 5 mg PO DAILY PRN PRN PRN Reason: Constipation Furosemide (Lasix) 40 mg IV BIDLX HEDY Heparin Sodium (Porcine) () 5,000 units SC BID HEDY Magnesium Hydroxide (Milk Of Magnesia) 30 ml PO DAILY PRN PRN Reason: Constipation Nutritional Formula (Lactose Free) (Glucerna Shake) 120 ml PO TIDCM HEDY Ondansetron HCl (Zofran) 4 mg IV Q8H PRN PRN PRN Reason: NAUSEA Psyllium Hydrophilic Mucilloid (Metamucil) 1 packet PO DAILY PRN PRN PRN Reason: CONSTIPATION Sodium Chloride () 5 - 30 ml IV UD PRN PRN Reason: SALINE FLUSH - Past Medical History Past Medical History (Chronic Problems): Chronic Problems Noncompliance (Chronic) Diabetic neuropathy (Chronic) Diabetic nephropathy (Chronic) Diabetic retinopathy (Chronic) HTN (hypertension) (Chronic) HLD (hyperlipidemia) (Chronic) Blind left eye (Chronic) Diabetes mellitus type II, uncontrolled (Chronic) Obesity (BMI 30.0-34.9) (Chronic) Anxiety and depression (Chronic) GERD (gastroesophageal reflux disease) (Chronic) Chewing tobacco nicotine dependence (Chronic) CKD (chronic kidney disease) stage 3, GFR 30-59 ml/min (Chronic) Leg edema, right (Chronic) History of acute myocardial infarction (Chronic) - Past Surgical History Surgical History: - - Cholecystectomy, left retinal tear repair attempts, right eye laser surgery. - Social History Marital Status: Smoking Status: Never smoker - Family History Maternal History Items: Heart Disease Paternal History Items: Cancer - Father w/ Colon CA. Sibling History Items: Diabetes - sister, brother who passed, no kidney disease Review of Systems Constitutional: Denies: Anorexia, Chills, Fever, Weakness, Fatigue Eyes: Denies: Blurred vision HEENT: Denies: Head Aches Cardiovascular: Reports: Edema, Orthopnea. Denies: Chest Pain, Light Headedness, Palpitations, Syncope Respiratory: Reports: Cough, Shortness of breath upon exertion, Wheezing. Denies: Hemoptysis Gastrointestinal: Denies: Abdominal Pain, Constipation, Diarrhea, Nausea, Vomiting Genitourinary: Denies: Dysuria, Hematuria Musculoskeletal: Reports: - - Swelling bilateral lower extremities. Denies: Arm Pain, Back Pain Neurological: Denies: Focal weakness, Tremor, Seizures Hematologic/ Lymphatic: Reports: Anemia. Denies: Hx of blood clot - Physical Exam General: Alert, Oriented x3, Cooperative, No apparent distress HEENT: PERRLA, EOMI Oral: Moist Mucosa Neck: Supple Lungs: Clear to auscultation Cardiovascular: Regular rate Abdomen: Bowel Sounds Present, Soft, Non Tender, Non-Distended, Obese Extremities: Edema - 2+ pitting BLE Skin: No rashes Musculoskeletal: No Muscle Wasting Neurological: Cranial nerves II-XII grossly intact Psych/Mental Status: Normal Affect, Appropriate, Alert and oriented to time, place, person, mood and affect Vital Signs Temp Pulse Resp BP Pulse Ox 97.8 F 74 20 H 123/76 H 97 11/28/17 12:40 11/28/17 12:48 11/28/17 12:40 11/28/17 12:40 11/28/17 12:40 Oxygen Flow Rate (L/min) 4 Oxygen Delivery Method Nasal Cannula Weight: 108.4 kg Body Mass Index (BMI) 36.3 Laboratory Tests Past 24 Hrs Lactic Acid Pending Troponin I < 0.02 Clinical Impression(s) from Imaging Studies Chest X-Ray 11/28/17 09:00 IMPRESSION: Findings in keeping with CHF. Increased right infrahilar markings. Follow-up is recommended. Electronically Signed: Tristan France MD at 9:37 EDT Tel [phone], Service support , Assessment/Plan 1. CKD stage III due to diabetic nephropathy, hypertensive nephrosclerosis. Renal function at baseline. 2. History of noncompliance with medications, diet, and diabetes. 3. DM type II on insulin therapy. 4. Hypertension with stable blood pressure 5. Dyspnea with hypoxia. Chest x-ray with CHF pattern. BNP was 388 negative troponin 1. Continue with Lasix. 6. Chronic leg edema likely due to poor compliance with low- sodium diet, nephrotic proteinuria from diabetes. 7. Will need further education on low sodium diet, diabetic diet. 12/03/17 0917 <Electronically signed by Loida Montiel DO> Date Loida Montiel DO Cosigner Signature (if applicable): Date CC: Kyrie Garsia MD; Anderson Gaston MD; Loida Montiel DO Signed BEDSIDE GLUCOSE Collected: 12/03/2017 Status: F Source: [place] 7:01 AM [facility] REPOSITORY TYPE CODE TESTS RESULT OUT OF RANGE REFERENCE UNITS LAB L501.080 70-110 mg/dL Normal BEDSIDE GLU 91 Result Comment: MANAGEMENT OF PATIENT CARE PER NURSING PROTOCOL Performed By: #### L501.080 #### [facility] Point of Care [address] [place] [address] BEDSIDE GLUCOSE Collected: 12/03/2017 Status: F Source: [place] 6:46 AM [facility] REPOSITORY TYPE CODE TESTS RESULT OUT OF REFERENCE UNITS RANGE LAB L501.080 70-110 mg/dL Low BEDSIDE GLU 65 Result Comment: MANAGEMENT OF PATIENT CARE PER NURSING PROTOCOL Performed By: #### L501.080 #### [facility] Point of Care [address] [place] [address] RENAL PROFILE Collected: 12/03/2017 Status: F Source: [place] 5:17 AM [facility] REPOSITORY TYPE CODE TESTS RESULT OUT OF RANGE REFERENCE UNITS LAB L501.0100 74-106 mg/dL Normal GLU 101 Result Comment: Fasting Glucose result from 100 to 125 mg/dL suggests IMPAIRED HOMEOSTASIS per A.D.A. criteria. Please note revised GLUCOSE reference range effective 2017. LAB L501.1000 7-18 mg/dL High BUN 81 LAB L501.1100 0.70-1.30 mg/dL High CREAT,SERUM 3.36 Result Comment: The validity of the calculated GFR AND GFRAA in patients over 70 years has not been determined. Clinical correlation is essential. LAB L501.1110 >60 mL/min Low EST GFR 21 Result Comment: Non- GFR Calc LAB L501.1115 >60 mL/min Low EST GFR - AA 25 Result Comment: GFR Calc LAB L501.1255 ml/min Normal Estimated CRCL 26.01 LAB L501.1300 10-20 RATIO High BUN/CRE 24.1 LAB L501.1800 3.2-5. g/dL Low 0 ALB 1.8 LAB L501.2200 8.5-10 mg/dL Low .1 CA 8.2 LAB L501.2300 2.5-4. mg/dL High 9 PHOS 5.2 LAB L501.5300 136-14 mmol/L Normal 5 NA 141 LAB L501.5600 3.5-5. mmol/L Normal 1 K 4.6 LAB L501.5900 98-107 mmol/L Normal CL 105 LAB L501.6100 21.0-3 mmol/L Normal 2.0 CO2 29.0 Performed By: #### L500.3600, L501.5200 #### [facility] [address] [place], [address] MAGNESIUM Collected: 12/03/2017 Status: F Source: [facility] 5:17 AM [facility] REPOSITORY TYPE CODE TESTS RESULT OUT OF RANGE REFERENCE UNITS LAB L501.5200 1.6-2.6 mg/dL Normal MG 2.5 Result Comment: Please note revised Magnesium reference range effective 2017. Performed By: #### L500.3600, L501.5200 #### [facility] [address] [place], [address] BEDSIDE GLUCOSE Collected: 12/02/2017 Status: F Source: [facility] 9:28 PM [facility] REPOSITORY TYPE CODE TESTS RESULT OUT OF REFERENCE UNITS RANGE LAB L501.080 70-110 mg/dL High BEDSIDE GLU 175 Result Comment: MANAGEMENT OF PATIENT CARE PER NURSING PROTOCOL Performed By: #### L501.080 #### [facility] Point of Care [address] [place] [address] BEDSIDE GLUCOSE Collected: 12/02/2017 Status: F Source: [facility] 4:31 PM [facility] REPOSITORY TYPE CODE TESTS RESULT OUT OF REFERENCE UNITS RANGE LAB L501.080 70-110 mg/dL High BEDSIDE GLU 129 Result Comment: MANAGEMENT OF PATIENT CARE PER NURSING PROTOCOL Performed By: #### L501.080 #### [facility] Point of Care [address] [place] [address] CONSULTATION Observed: 12/02/2017 Status: F Source: [place] 3:48 PM [facility] REPOSITORY [facility] Medical Records Department [address] [place] [address] Consultation 12/02/17 0828 MR#: [id number] Acct: [id number] Name: WILLIAMS BURGOS Rep #: [id number] : 1970 46 From: Yari Stein CVIR TECH-C PCP: Anderson Gaston MD Status: ADM IN Location: [place] [address] ADDENDUM by Kyrie Garsia MD on 12/02/17 at 1548 Code Visit Patient seen and examined independently in conjunction with nurse practitioner. All data, including note below, was personally reviewed and I agree with the added comments. Brief, despite young age, patient has multiple complications of diabetes and CHF leading to multiple hospitalizations. Patient presented originally on 11/21/2017 secondary to congestive heart failure, only to be readmitted on 11/28/2017 secondary to continued lower extremity edema, progressive shortness of breath and cough. Patient did not have any constitutional symptoms, but was noted to be 86% on room air. Patient's renal function has complicated his overall management. Pulmonary has been consulted to see if there is any possible interventions from a pulmonary standpoint. Patient admits that he is not compliant with LUANNE therapy, dietary restrictions and medications. Patient denies smoking. Patient does report drinking beer intermittently and denies any occupational exposures. Physical exam was independently performed and I agree as listed below. Patient does have some lower extremity edema and rales in the bases of his lungs. Is currently saturating well on 4 L nasal cannula. No murmurs, rubs or gallops are appreciated. Patient does not have any lower extremity cellulitis. Patient has responded somewhat to diuresis. Assessment and plan Patient appears to have an acute exacerbation of congestive heart failure that is complicated by renal function. Patient should continue with volume optimization. Complete pulmonary function test can be completed as an outpatient. Imaging will be of limited utility as pulmonary edema can appear as pulmonary fibrosis on imaging. Patient would benefit from compliance with LUANNE therapy. Continue to monitor. Inpatient E AND M: [id number] Init Hosp L3 12/02/17 1548 <Electronically signed by Kyrie Garsia MD> Date Kyrie Garsia MD cc: Kyrie Garsia MD; Anderson Gaston MD; Loida Montiel DO * Signed Problem List (1) Acute respiratory failure with hypoxia Status: Acute (2) Diastolic congestive heart failure Status: Acute Qualifiers: Heart failure chronicity: acute on chronic Qualified Code(s): I50.33 - Acute on chronic diastolic (congestive) heart failure (3) Noncompliance Status: Chronic (4) Diabetic neuropathy Status: Chronic (5) Diabetic nephropathy Status: Chronic (6) Diabetic retinopathy Status: Chronic (7) HTN (hypertension) Status: Chronic Qualifiers: Hypertension type: essential hypertension Qualified Code(s): I10 - Essential (primary) hypertension (8) HLD (hyperlipidemia) Status: Chronic Qualifiers: Hyperlipidemia type: unspecified Qualified Code(s): E78.5 - Hyperlipidemia, unspecified (9) Blind left eye Status: Chronic (10) Diabetes mellitus type II, uncontrolled Status: Chronic Qualifiers: Diabetes mellitus residential insulin use: with 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 use Diabetes mellitus complication status: with unspecified complications Qualified Code(s): E11.8 - Type 2 diabetes mellitus with unspecified complications; E11.65 - Type 2 diabetes mellitus with hyperglycemia; 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 (11) Anxiety and depression Status: Chronic (12) GERD (gastroesophageal reflux disease) Status: Chronic Qualifiers: Esophagitis presence: esophagitis presence not specified Qualified Code(s): K21.9 - Gastro-esophageal reflux disease without esophagitis (13) Hypertensive emergency Status: Acute (14) CKD (chronic kidney disease) stage 3, GFR 30-59 ml/min Status: Chronic Reason for Consult Date of Consultation: 12/02/17 Reason for Consultation: acute hypoxic respiratory failure History of Present Illness: The patient is a 46 year old M with past medical history as below, recently discharged from the ICU on 11/21/17 for acute diastolic CHF, hypertensive emergency, ILDA, and hypokalemia, admitted again on 11/28 with complaints of progressive shortness of breath, cough and edema. He denies any fever or chills. The patient was seen last admission by ring cutter lathe operator Dr. Montiel and was to follow up in a few weeks. He was not discharged on diuretics. Patient did present to his primary care physician's office secondary to the shortness of breath and lower extremity edema, Lasix was restarted at that time with no significant improvement, so presented to the ED. initial vital signs BP 141/75, pulse 81, RR 17, 97.1 F, and 86% on room air. Initially placed on 2 L of oxygen supplementation, needs have been from 2-5 L. Of note, patient had weight gain of 28 pounds since he left the hospital on the . Initial blood work showed no leukocytosis, hemoglobin was 11.2. BUN was 50 and creatinine 2.70. Creatinine on discharge 11/21 was 2.88. Glucose was 354 and BNP 389. Chest x-ray showed findings consistent with congestive heart failure, increased right infrahilar markings. Bilateral venous Dopplers were negative for DVT. Patient was seen in consultation by Dr. Montiel, Lasix was briefly held secondary to worsening creatinine, but now continued at 20 mg twice daily. EKG is showing sinus rhythm with occasional PVCs, nonspecific T-wave abnormality. Repeat chest x-ray was obtained on 11/30 and showed bibasilar airspace consolidations and/or atelectasis, cardiomegaly and mild pulmonary congestion. Patient became more dyspneic and started on BiPAP 12/01. Patient was given 40 mg IV dose of Lasix 1. In the last 24 hours, patient has needed BiPAP infrequently. Again, chest x-ray was repeated on 12/01 and showed worsening pulmonary edema. An ABG on 5 L of oxygen was obtained and showed a pH of 7.42, PCO2 42.4, PO2 of 71, and bicarb of 27.4. Cumulative fluid balance is -1890, patient is actually up 9 pounds since admission. The patient has now been weaned to 1 L of oxygen supplementation. He has been receiving every 4 hours DuoNeb aerosols. Has not needed PRN albuterol. Patient does have a history of MRSA in his wound in May 2017. Echocardiogram 11/20/17 showed moderate concentric LVH, estimated EF of 65%, a trivial right to left intra-atrial shunt, RVSP was not estimated. There was a small anterior pericardial effusion, possible epicardial fat on the RV, no significant change in LV function since 06/25/2011. Patient denies any smoking history. He has had no occupational or environmental exposures. He did have a polysomnogram in the past here at [facility], however was noncompliant with PAP therapy. I do not see this testing on file. He admits he has been noncompliant with his diet at home, has uncontrolled diabetes with complications and congestive heart failure. He denies any previous home oxygen use, he does not use any inhalers. He has never had any pulmonary function testing. He does complain of a nonproductive cough, especially with deep breaths. He denies any wheezing, hemoptysis, dyspnea at rest. Endorses dyspnea on exertion. Past Medical History Past Medical History (Chronic Problems): Chronic Problems Noncompliance (Chronic) Diabetic neuropathy (Chronic) Diabetic nephropathy (Chronic) Diabetic retinopathy (Chronic) HTN (hypertension) (Chronic) HLD (hyperlipidemia) (Chronic) Blind left eye (Chronic) Diabetes mellitus type II, uncontrolled (Chronic) Obesity (BMI 30.0-34.9) (Chronic) Anxiety and depression (Chronic) GERD (gastroesophageal reflux disease) (Chronic) Chewing tobacco nicotine dependence (Chronic) CKD (chronic kidney disease) stage 3, GFR 30-59 ml/min (Chronic) Leg edema, right (Chronic) History of acute myocardial infarction (Chronic) Allergies No Known Allergies Allergy (Verified 11/28/17 08:44) Home Medications: Ambulatory Orders Medication Instructions Recorded Gabapentin [Neurontin] 300 mg PO TIDCM 07/15/13 Insulin Glargine [Lantus SoloStar 60 units SC QHS 07/15/13 Surgical History: cholecystectomy, - - Cholecystectomy, left retinal tear repair attempts, right eye laser surgery. Psychiatric History: Anxiety, Depression Lives: Alone Smoking Status: Never smoker Tobacco Use: Non-smoker Alcohol: Rare Drugs: None - *Family History Maternal History Items: Heart Disease Paternal History Items: Cancer - Father w/ Colon CA. Sibling History Items: Diabetes - sister, brother who passed, no kidney disease Review of Systems Constitutional: Reports: Weight Change, Fatigue. Denies: Anorexia, Chills, Fever, Night Sweats, Malaise, Weakness Eyes: Reports: - - Blind left eye, poor vision in the right at baseline HEENT: Denies: Difficulty Swallowing, Dysphasia, Head Aches, Nasal Congestion, Sinus Congestion, Sinus Drainage, Sore Throat Cardiovascular: Reports: Edema, Orthopnea. Denies: Chest Pain, Chest Tightness, Light Headedness, Palpitations, Paroxysmal Noc. Dyspnea, Syncope Respiratory: Reports: Cough - Nonproductive, Shortness of breath upon exertion. Denies: Hemoptysis, Shortness of breath at rest, Sputum production, Wheezing Gastrointestinal: Reports: - - Bloating. Denies: Abdominal Pain, Constipation, Diarrhea, Dyspepsia, Hematemesis, Hematochezia, Nausea, Melena, Vomiting Genitourinary: Reports: Frequency, Nocturia. Denies: Dysuria, Hematuria, Retention Musculoskeletal: Reports: Back Pain - Chronic, Leg Pain - Peripheral neuropathy. Denies: Neck Pain Skin: Denies: Rash, Wounds Neurological: Reports: Numbness, Tingling. Denies: Balance problems, Change in Speech, Confusion, Difficulty swallowing, Focal weakness, Tremor, Seizures Psychiatric: Reports: Anxiety, Depression Endocrine: Reports: Change in Body Habitus, Polydipsia. Denies: Polyuria Hematologic/ Lymphatic: Reports: Anemia. Denies: Adenopathy, Easy Bruising, Easy Bleeding, Hx of blood clot Patient Problems: Active and Suspected Problems Acute respiratory failure with hypoxia (Acute) Subjective: The patient was seen and examined. He is resting in bed with eyes closed, is alert and oriented. Reports he overall feels better and wants to go home. His edema has improved. Still dyspneic on exertion but better, has been weaned to 1 L of oxygen supplementation and was briefly on BiPAP but not currently requiring. Objective: Clinical Impression(s) from Imaging Studies Chest X-Ray 11/28/17 09:00 IMPRESSION: Findings in keeping with CHF. Increased right infrahilar markings. Follow-up is recommended. Electronically Signed: Tristan France MD at 9:37 EDT Tel [phone], Service support , Chest X-Ray 11/30/17 09:28 IMPRESSION: 1. Bilateral basilar airspace consolidations and/or atelectasis, similar to previous study. 2. Cardiomegaly and mild pulmonary congestion. Electronically Signed: Neli Watson MD at 12:07 EDT , Service support , Chest X-Ray 12/01/17 03:30 IMPRESSION: Worsening pulmonary edema. Electronically Signed: Owen Del Valle MD at 4:44 EDT Tel , Service support , - Physical Exam General: Alert, Oriented x3, Cooperative, No apparent distress, Well developed, Well nourished, - - No conversational dyspnea HEENT: Atraumatic, Normocephalic Oral: Moist Mucosa, No Gingival or Mucosal Lesions/ Ulcerations Neck: Supple, No Nodes, Trachea Midline Lungs: - - Diminished t/o, no appreciable rhonchi, wheezing, or rales. No significant dullness to percussion Cardiovascular: Regular rate, Regular Rhythm, Normal S1, Normal S2, No murmurs, No rub noted, No Gallop Abdomen: Bowel Sounds Present, Soft, Non Tender, Distended Extremities: No clubbing, No cyanosis, Capillary Refill Less than 3 Seconds, No Calf Tenderness, Edema Skin: No rashes, No breakdown Musculoskeletal: No Tenderness to Palpation of Joints or Extremities Lymphatic: No Cervical, Supraclavicular, or Inguinal Adenopathy Neurological: Cranial nerves II-XII grossly intact, Neuro grossly intact, Motor Exam 5/5 strength throughout Psych/Mental Status: Alert and oriented to time, place, person, mood and affect Vital Signs Temp Pulse Resp BP Pulse Ox 97.9 F 94 18 162/78 H 96 12/02/17 05:25 12/02/17 07:08 12/02/17 06:34 12/02/17 05:25 12/02/17 06:34 Oxygen Flow Rate (L/min) 4 Oxygen Delivery Method Nasal Cannula Weight: 250 lb 3 oz Body Mass Index (BMI) 36.3 Intake and Output for Last 24 Hours Intake Total 640 / 640 940 / 940 530 / 530 Output Total 2150 / 2150 2090 / 2090 425 / 425 Balance -1510 / -1510 -1150 / -1150 105 / 105 Laboratory Tests Past 24 Hrs Specimen Type ART Sample Site L Brachial POC Glucose POC Glucose 103 75 64 L POC Glucose 188 H 116 H 106 Assessment/Plan Active and Suspected Problems Acute respiratory failure with hypoxia (Acute) RECOMMENDATIONS 1. Wean oxygen supplementation to keep saturations greater than 89% 2. Encourage incentive spirometer 3. Increase activity as tolerated, mobilize 4. Continue scheduled DuoNeb aerosols, PRN albuterol 5. Continue diuresis, daily weights, strict I AND O 6. Education on CHF/diabetes 7. Utilize BiPAP nightly and with naps, also as rescue 7. Outpatient polysomnogram 8. Walking oximetry prior to discharge IMPRESSIONS 1. Acute hypoxic respiratory failure secondary to diastolic CHF exacerbation Patient has been weaned to 1-2 L of oxygen supplementation. He is no longer requiring BiPAP. No shortness of breath at rest. Chest x-ray showing airspace densities in the perihilar regions and lung bases, probable worsening pulmonary edema. Likely not infectious but more related to his CHF. No fevers or leukocytosis. No culture data to review. Patient not producing any sputum, can obtain culture if cough becomes productive. Patient does have history of MRSA in a wound in 05/2017, will check PCR. No indications for steroids or antibiotics at this time. His edema has actually improved, however weight is up 9# from this admission and up 37# since he was discharged on 11/21. Diuresis is complicated by worsening renal function. Dr. Montiel is following. Patient will require a walking oximetry prior to discharge. He should be utilizing BiPAP to assist with fluid accumulation. 2. Suspected LUANNE Patient reports past polysomnogram a long time ago at [facility]. These records are not available at this time. STOP score +. Patient never wore BiPAP therapy secondary to noncompliance. Encourage patient to use BiPAP with naps and nightly, can use as rescue if needed. Patient would likely benefit from repeat polysomnogram at discharge. Given his comorbidities, he would likely benefit from PAP therapy and possibly help avoid future admissions to the hospital. 3. ILDA/chronic kidney disease stage III/obesity/CAD/type 2 diabetes Complicates care, management, recovery, and prognosis. Nephrology is following, creatinine has bumped up likely secondary to diuretic use. Thank you for the opportunity to participate in this patient's care, please do not hesitate contact us with any further questions or concerns. This note was generated with Hep[employer] software. It may contain incorrect words, spelling, and punctuation that were not noted in checking the note before signing. 12/02/17 1219 <Electronically signed by Yari INTERIANO> Date Yari INTERIANO Cosigner Signature (if applicable): Date CC: Kyrie Garsia MD; Anderson Gaston MD; Loida Montiel DO Signed PROGRESS Observed: 12/02/2017 Status: COMPLETED Source: [place] 3:01 PM [facility] O ID: [id number] Author: [facility] Author Type: Registered Nurse Type: Progress Notes Filed: 12/05/2017 3:03 PM Note Text: Reviewed [facility] records. Pt remains hospitalized there with Nephrotic syndrome and CHF. Having some Pulm edema. Looks like will remain in hospital few more days. BEDSIDE GLUCOSE Collected: 12/02/2017 Status: F Source: [place] 11:41 AM [facility] REPOSITORY TYPE CODE TESTS RESULT OUT OF RANGE REFERENCE UNITS LAB L501.080 70-110 mg/dL Normal BEDSIDE GLU 91 Result Comment: MANAGEMENT OF PATIENT CARE PER NURSING PROTOCOL Performed By: #### L501.080 #### [facility] [place] [address] M R STAPH AUREUS Collected: 12/02/2017 Status: F Source: [place] DNA BY PCR 11:40 AM [facility] REPOS[facility] Order Comment: Interface Comments: R/O MRSA Diagnosis: Order Date: 12/02/17 RESULTS CALLED TO 12/02/17 1323 Eduardo Lopez. REPORT READ BACK BY MARILYN. Comments: from janie TYPE CODE TESTS RESULT OUT OF REFERENCE UNITS RANGE LAB L8200.1100 Negative High MRSA POSITIVE RESULT Performed By: #### L8200.1000 #### [facility] [address] [place], [address] BEDSIDE GLUCOSE Collected: 12/02/2017 Status: F Source: [place] 6:52 AM [facility] TYPE CODE TESTS RESULT OUT OF RANGE REFERENCE UNITS LAB L501.080 70-110 mg/dL Normal BEDSIDE GLU 103 Result Comment: MANAGEMENT OF PATIENT CARE PER NURSING PROTOCOL Performed By: #### L501.080 #### [facility] Point of Care [address] [place] [address] BEDSIDE GLUCOSE Collected: 12/02/2017 Status: F Source: [place] 5:51 AM [facility] TYPE CODE TESTS RESULT OUT OF RANGE REFERENCE UNITS LAB L501.080 70-110 mg/dL Normal BEDSIDE GLU 75 Result Comment: MANAGEMENT OF PATIENT CARE PER NURSING PROTOCOL Performed By: #### L501.080 #### [facility] Point of Care [address] [place] [address] BEDSIDE GLUCOSE Collected: 12/02/2017 Status: F Source: [place] 5:32 AM [facility] TYPE CODE TESTS RESULT OUT OF REFERENCE UNITS RANGE LAB L501.080 70-110 mg/dL Low BEDSIDE GLU 64 Result Comment: MANAGEMENT OF PATIENT CARE PER NURSING PROTOCOL Performed By: #### L501.080 #### [facility] Point of Care [address] [place] [address] RENAL PROFILE Collected: 12/02/2017 Status: F Source: [place] 5:10 AM [facility] TYPE CODE TESTS RESULT OUT OF RANGE REFERENCE UNITS LAB L501.0100 74-106 mg/dL Low GLU 57 Result Comment: Please note revised GLUCOSE reference range effective 2017. LAB L501.1000 7-18 mg/dL High BUN 80 LAB L501.1100 0.70-1.30 mg/dL High CREAT,SERUM 3.62 Result Comment: The validity of the calculated GFR AND GFRAA in patients over 70 years has not been determined. Clinical correlation is essential. LAB L501.1110 >60 mL/min Low EST GFR 19 Result Comment: Non- GFR Calc LAB L501.1115 >60 mL/min Low EST GFR - AA 23 Result Comment: GFR Calc LAB L501.1255 ml/min Normal Estimated CRCL 24.14 LAB L501.1300 10-20 RATIO High BUN/CRE 22.1 LAB L501.1800 3.2-5. g/dL Low 0 ALB 2.0 LAB L501.2200 8.5-10 mg/dL Normal .1 CA 8.6 LAB L501.2300 2.5-4. mg/dL High 9 PHOS 5.6 LAB L501.5300 136-14 mmol/L Normal 5 NA 139 LAB L501.5600 3.5-5. mmol/L Normal 1 K 4.4 LAB L501.5900 98-107 mmol/L Normal CL 103 LAB L501.6100 21.0-3 mmol/L Normal 2.0 CO2 27.0 Performed By: #### L500.3600 #### [facility] [address] [place], [address] [facility] Observed: 12/02/2017 Status: COMPLETED Source: [place] 12:00 AM [facility] REPOSIT[facility] Patient Outreach ([facility]) WILLIAMS BURGOS ([id number]) 1970 M Date Time Provider Department 12/02/17 CHELSEA SMITH During your visit today, we recorded the following information about you: Chelsea Cottrell RN 12/05/2017 3:03 PM Signed Reviewed [facility] records. Pt remains hospitalized there with Nephrotic syndrome and CHF. Having some Pulm edema. Looks like will remain in hospital few more days. Allergies As of Date: 12/02/2017 (No Known Allergies) Date Reviewed: 11/26/2017 Reviewed by: Catalina Lala LPN - Fully Assessed Prescriptions as of 12/02/2017 Sig: INSULIN GLARGINE (U-100) 100 * Inject 60 Units subcutaneousl* INSULIN ASPART U-100 100 UNI* Inject insulin three times da* FUROSEMIDE 20 MG TABLET Take 1 tablet by mouth once d* POTASSIUM CHLORIDE ER 10 MEQ * Take 1 capsule by mouth twice* ATENOLOL 100 MG TABLET Take 1 tablet by mouth once d* COMPOUNDED PRESCRIPTION KNEE HIGH COMPRESSION STOCKIN* GABAPENTIN 300 MG CAPSULE Take 1 capsule by mouth three* ATORVASTATIN 20 MG TABLET Take 1 tablet by mouth at bed* RANITIDINE 300 MG TABLET Take 1 tablet by mouth daily * BUPROPION XL 300 MG 24 HR TAB Take 1 tablet by mouth once d* AMLODIPINE 5 MG TABLET Take 1 tablet by mouth once d* HYDROCHLOROTHIAZIDE 25 MG TAB* Take 1 tablet by mouth once d* LISINOPRIL 40 MG TABLET Take 1 tablet by mouth once d* ASPIRIN 81 MG CHEWABLE TABLET Take 81 mg by mouth once adela* ACETAMINOPHEN ORAL Take by mouth. 1000 mg bid f* Problem List As Of Date 12/02/2017 Noted Resolved Uncontrolled type 2 diabetes mellitus with comp*INVALID FOR* More... Hypertension goal BP (blood pressure) < 140/90 *INVALID FOR* More... HYPERLIPIDEMIA NEC/NOS [E78.5] INVALID FOR* More... DEPRESSIVE DISORDER NEC [F32.9] INVALID FOR* More... ED (erectile dysfunction) [N52.9] INVALID FOR* Lower urinary tract symptoms (LUTS) [R39.9] INVALID FOR* History of kidney stones [Z87.442] INVALID FOR* Microscopic hematuria [R31.29] INVALID FOR* Diabetic polyneuropathy associated with type 2 *INVALID FOR* More... Acute pain of right shoulder [M25.511] INVALID FOR* More... Nausea [R11.0] INVALID FOR* More... Vomiting [R11.10] INVALID FOR* More... Moderate episode of recurrent major depressive *INVALID FOR* Stage 3 chronic kidney disease [N18.3] INVALID FOR* Encounter Status:Closed by CHELSEA ANDRADE on 12/05/17 BEDSIDE GLUCOSE Collected: 12/01/2017 Status: F Source: [place] 9:33 PM [facility] TYPE CODE TESTS RESULT OUT OF REFERENCE UNITS RANGE LAB L501.080 70-110 mg/dL High BEDSIDE GLU 188 Result Comment: MANAGEMENT OF PATIENT CARE PER NURSING PROTOCOL Performed By: #### L501.080 #### [facility] Point of Care [address] [place], [place] [address] BEDSIDE GLUCOSE Collected: 12/01/2017 Status: F Source: [place] 4:46 PM [facility] TYPE CODE TESTS RESULT OUT OF REFERENCE UNITS RANGE LAB L501.080 70-110 mg/dL High BEDSIDE GLU 116 Result Comment: MANAGEMENT OF PATIENT CARE PER NURSING PROTOCOL Performed By: #### L501.080 #### [facility] Point of Care [address] [place], [place] [address] BLOOD GASES BY CPS Collected: 12/01/2017 Status: F Source: [place] 11:52 AM [facility] TYPE CODE TESTS RESULT OUT OF RANGE REFERENCE UNITS LAB L9000.9990 Normal BLD GAS TYPE ART LAB L9001.1000 L Normal SITE Brachial LAB L9001.1010 NA Normal LUZ ELENA TEST LAB L9001.1050 O2 Normal Delivery Dev Nasal Can LAB L9001.1055 /min Normal LPM 5.0 LAB L9001.1104 Normal Results To HOSP MD LAB L9001.1105 Normal Time Given 1150 LAB L9001.1110 7.35-7.45 pH Normal - I-STAT 7.42 LAB L9001.1210 35-45 mmHg Normal pCO2 - ISTAT 42.4 LAB L9001.1310 75-100 mmHG Low 71 PO2 I-STAT LAB L9001.2300 22-26 mmol/L High HCO3 ISTAT 27.4 LAB L9001.2400 -2 to +2 mmol/L High BE 3 ISTAT LAB L9001.2415 mmol/L 29 Normal TOTAL CO2 ISTAT LAB L9001.2425 95-99 % Low 94 SO2 ISTAT Performed By: #### L9000.0800 #### [facility] Point of Care [address] [place] [address] BEDSIDE GLUCOSE Collected: 12/01/2017 Status: F Source: [place] 11:49 AM [facility] TYPE CODE TESTS RESULT OUT OF RANGE REFERENCE UNITS LAB L501.080 70-110 mg/dL Normal BEDSIDE GLU 106 Result Comment: MANAGEMENT OF PATIENT CARE PER NURSING PROTOCOL Performed By: #### L501.080 #### [facility] Point of Care [address] [place] [address] BEDSIDE GLUCOSE Collected: 12/01/2017 Status: F Source: [place] 7:07 AM [facility] TYPE CODE TESTS RESULT OUT OF REFERENCE UNITS RANGE LAB L501.080 70-110 mg/dL High BEDSIDE GLU 207 Result Comment: MANAGEMENT OF PATIENT CARE PER NURSING PROTOCOL Performed By: #### L501.080 #### [facility] Point of Care [address] [facility] [place] [address] RENAL PROFILE Collected: 12/01/2017 Status: F Source: [place] 5:24 AM [facility] TYPE CODE TESTS RESULT OUT OF RANGE REFERENCE UNITS LAB L501.0100 74-106 mg/dL High GLU 244 Result Comment: Glucose result greater than or equal to 200 mg/dL suggests DIABETES MELLITUS per A.D.A. criteria. Please note revised GLUCOSE reference range effective 2017. LAB L501.1000 7-18 mg/dL High BUN 73 LAB L501.1100 0.70-1.30 mg/dL High CREAT,SERUM 3.74 Result Comment: The validity of the calculated GFR AND GFRAA in patients over 70 years has not been determined. Clinical correlation is essential. LAB L501.1110 >60 mL/min Low EST GFR 18 Result Comment: Non- GFR Calc LAB L501.1115 >60 mL/min Low EST GFR - AA 22 Result Comment: GFR Calc LAB L501.1255 ml/min Normal Estimated CRCL 23.37 LAB L501.1300 10-20 RATIO Normal BUN/CRE 19.5 LAB L501.1800 3.2-5. g/dL Low 0 ALB 2.2 LAB L501.2200 8.5-10 mg/dL Low .1 CA 8.4 LAB L501.2300 2.5-4. mg/dL Normal 9 PHOS 4.8 LAB L501.5300 136-14 mmol/L Normal 5 NA 136 LAB L501.5600 3.5-5. mmol/L High 1 K 5.2 LAB L501.5900 98-107 mmol/L Normal CL 101 LAB L501.6100 21.0-3 mmol/L Normal 2.0 CO2 25.0 Performed By: #### L500.3600 #### [facility] [address] [place], [address] BLOOD GASES BY CPS Collected: 12/01/2017 Status: F Source: [place] 3:41 AM [facility] TYPE CODE TESTS RESULT OUT OF RANGE REFERENCE UNITS LAB L9000.9990 Normal BLD GAS TYPE ART LAB L9001.1000 Normal SITE R Radial LAB L9001.1010 Normal LUZ ELENA TEST POS LAB L9001.1050 O2 Normal Delivery Dev Nasal Can LAB L9001.1055 /min Normal LPM 5.0 LAB L9001.1104 Normal Results To HOSP MD LAB L9001.1105 Normal Time Given 335 LAB L9001.1110 7.35-7.45 Low pH - I-STAT 7.34 LAB L9001.1210 35-45 mmHg High pCO2 - ISTAT 47.9 LAB L9001.1310 75-100 mmHG Low PO2 I-STAT 60 LAB L9001.2300 22-26 mmol/L Normal HCO3 ISTAT 25.6 LAB L9001.2400 -2 to +2 mmol/L BE Normal ISTAT 0 LAB L9001.2415 mmol/L Normal TOTAL CO2 27 ISTAT LAB L9001.2425 95-99 % Low SO2 ISTAT 89 Performed By: #### L9000.0800 #### [facility] Point of Care [address] [place] [address] CHEST 1 VIEW Observed: 12/01/2017 Status: F Source: [place] (PORTABLE) 3:27 AM [facility] Imaging Services [address] [place] [address] Chest 1 View (Portable) MR#: [id number] Acct: [id number] Name: WILLIAMS BURGOS Rep #: [id number] : 1970 M 46 From: Owen Del Valle MD PCP: Anderson Gaston MD Status: ADM IN Study: Chest 1 View (Portable) Date of Exam: 12/01/17 Exam# [id number] Ordering Dr: Vinnie Lima MD STUDY: X-RAY CHEST REASON FOR EXAM: Male, 46 years old. Dyspnea TECHNIQUE: Single AP portable view of the chest. COMPARISON: Nov 30 2017 10:19am . FINDINGS: Ill-defined airspace densities are seen in the perihilar regions and lung bases suggesting pulmonary edema or pneumonia appear worse when compared to previous study. There is no demonstrated pleural abnormality. Normal size heart. Normal mediastinum and reena. Normal visualized pulmonary arteries. Normal visualized aortic arch and descending thoracic aorta. Normal visualized thoracic spine. Normal visualized ribs, clavicles, and shoulders. There is no demonstrated abnormality of the visualized soft tissue structures of the upper abdomen. RAD/Chest 1 View (Portable) IMPRESSION: Worsening pulmonary edema. Electronically Signed: Owen Del Valle MD at 4:44 EDT Tel , Service support , CC: Anderson Gaston MD; Vinnie Lima MD Hand Packager: Signed BEDSIDE GLUCOSE Collected: 12/01/2017 Status: F Source: [place] 3:15 AM [facility] TYPE CODE TESTS RESULT OUT OF REFERENCE UNITS RANGE LAB L501.080 70-110 mg/dL High BEDSIDE GLU 263 Result Comment: MANAGEMENT OF PATIENT CARE PER NURSING PROTOCOL Performed By: #### L501.080 #### [facility] Point of Care [address] [place], [place] [address] BEDSIDE GLUCOSE Collected: 11/30/2017 Status: F Source: [place] 10:43 PM [facility] TYPE CODE TESTS RESULT OUT OF REFERENCE UNITS RANGE LAB L501.080 70-110 mg/dL High BEDSIDE GLU 271 Result Comment: MANAGEMENT OF PATIENT CARE PER NURSING PROTOCOL Performed By: #### L501.080 #### [facility] Point of Care [address] [place] [address] BEDSIDE GLUCOSE Collected: 11/30/2017 Status: F Source: [place] 5:21 PM [facility] TYPE CODE TESTS RESULT OUT OF REFERENCE UNITS RANGE LAB L501.080 70-110 mg/dL High BEDSIDE GLU 229 Result Comment: MANAGEMENT OF PATIENT CARE PER NURSING PROTOCOL Performed By: #### L501.080 #### [facility] Point of Care [address] [place] [address] BEDSIDE GLUCOSE Collected: 11/30/2017 Status: F Source: [place] 12:03 PM [facility] TYPE CODE TESTS RESULT OUT OF REFERENCE UNITS RANGE LAB L501.080 70-110 mg/dL High BEDSIDE GLU 143 Result Comment: MANAGEMENT OF PATIENT CARE PER NURSING PROTOCOL Performed By: #### L501.080 #### [facility] Point of Care [address] [place] [address] CHEST 1 VIEW Observed: 11/30/2017 Status: F Source: [place] (PORT[place]) 9:29 AM [facility] Imaging Services [address] [address] Chest 1 View (Portable) MR#: [id number] Acct: [id number] Name: WILLIAMS BURGOS Rep #: [id number] : 1970 M 46 From: Neli Watson MD PCP: Anderson Gaston MD Status: ADM IN Study: Chest 1 View (Portable) Date of Exam: 11/30/17 Exam# [id number] Ordering Dr: Donna Salomon MD STUDY: X-RAY CHEST REASON FOR EXAM: Male, 46 years old. Nephrotic syndrome. TECHNIQUE: Single AP portable view of the chest. COMPARISON: November 28, 2017. FINDINGS: The lungs are underexpanded. There is heterogeneous bilateral basilar airspace consolidations and atelectasis. There is interstitial thickening visible in both lungs. There is a small left-sided pleural effusion. There is borderline cardiomegaly. Normal mediastinum and reena. There is prominence of the pulmonary hilar arteries without peripheral pulmonary vascular congestion. There is atherosclerotic calcification of the aortic arch with tortuosity. There is demineralization of the osseous structures. Normal visualized ribs, clavicles, and shoulders. There is no demonstrated abnormality of the visualized soft tissue structures of the upper abdomen. RAD/Chest 1 View (Portable) IMPRESSION: 1. Bilateral basilar airspace consolidations and/or atelectasis, similar to previous study. 2. Cardiomegaly and mild pulmonary congestion. Electronically Signed: Neli Watson MD at 12:07 EDT , Service support , CC: Donna Salomon MD; Anderson Gaston MD Hand Packager: Signed BEDSIDE GLUCOSE Collected: 11/30/2017 Status: F Source: [facility] 6:54 AM [facility] REPOSITORY TYPE CODE TESTS RESULT OUT OF RANGE REFERENCE UNITS LAB L501.080 70-110 mg/dL Normal BEDSIDE GLU 85 Result Comment: MANAGEMENT OF PATIENT CARE PER NURSING PROTOCOL Performed By: #### L501.080 #### [facility] Point of Care [address] [place], [place] [address] BEDSIDE GLUCOSE Collected: 11/29/2017 Status: F Source: [facility] 10:33 PM [facility] REPOSITORY TYPE CODE TESTS RESULT OUT OF REFERENCE UNITS RANGE LAB L501.080 70-110 mg/dL High BEDSIDE GLU 128 Result Comment: MANAGEMENT OF PATIENT CARE PER NURSING PROTOCOL Performed By: #### L501.080 #### [facility] Point of Care [address] [place] [address] BEDSIDE GLUCOSE Collected: 11/29/2017 Status: F Source: [facility] 7:58 PM [facility] REPOSITORY TYPE CODE TESTS RESULT OUT OF REFERENCE UNITS RANGE LAB L501.080 70-110 mg/dL High BEDSIDE GLU 117 Result Comment: MANAGEMENT OF PATIENT CARE PER NURSING PROTOCOL Performed By: #### L501.080 #### [facility] Point of Care [address] [place] [address] BEDSIDE GLUCOSE Collected: 11/29/2017 Status: F Source: [facility] 4:21 PM [facility] REPOSITORY TYPE CODE TESTS RESULT OUT OF REFERENCE UNITS RANGE LAB L501.080 70-110 mg/dL High BEDSIDE GLU 137 Result Comment: MANAGEMENT OF PATIENT CARE PER NURSING PROTOCOL Performed By: #### L501.080 #### [facility] Point of Care [address] [place], [place] [address] 12 LEAD ELECTROCARDIOGRAM Observed: 11/29/2017 Status: F Source: [facility] 2:25 PM [facility] REPOSITORY [facility] Cardiovascular Services [address] [place] [address] 12 Lead EKG 11/28/17 0858 MR#: [id number] Acct: [id number] Name: WILLIAMS BURGOS Rep #: [id number] : 1970 46 From: Tylor Rudd MD Attending Dr: Donna Salomon MD Status: ADM IN Ordering Dr: Clarke Nick MD Date: 11/28/17 Location: [facility] Sex: M C Admitted: 11/28/17 Test Reason : SOB Blood Pressure : / mmHG Vent. Rate : 078 BPM Atrial Rate : 078 BPM P-R Int : 178 ms QRS Dur : 098 ms QT Int : 392 ms P-R-T Axes : 024 047 065 degrees QTc Int : 446 ms Normal sinus rhythm Normal ECG Confirmed by TYLOR RUDD MD ([id number]), features editor TOBY WATSON ([id number]) on 11/29/2017 2:24:32 PM Referred By: VALENTINO Confirmed By:TYLOR RUDD MD 11/29/17 1424 Date Tylor Rudd MD CC: MD Bandar Nick; Anderson Gaston MD Signed BEDSIDE GLUCOSE Collected: 11/29/2017 Status: F Source: [facility] 11:14 AM [facility] REPOSITORY TYPE CODE TESTS RESULT OUT OF REFERENCE UNITS RANGE LAB L501.080 70-110 mg/dL High BEDSIDE GLU 162 Result Comment: MANAGEMENT OF PATIENT CARE PER NURSING PROTOCOL Performed By: #### L501.080 #### [facility] [address] [facility] [place], [place] [id number] BEDSIDE GLUCOSE Collected: 11/29/2017 Status: F Source: [facility] 6:52 AM [facility] REPOSITORY TYPE CODE TESTS RESULT OUT OF REFERENCE UNITS RANGE LAB L501.080 70-110 mg/dL High BEDSIDE GLU 199 Result Comment: MANAGEMENT OF PATIENT CARE PER NURSING PROTOCOL Performed By: #### L501.080 #### [facility] Point of Care [address] [facility] [place] [address] CBC-COMPLETE BLOOD CNT Collected: 11/29/2017 Status: F Source: [facility] NO DIFF 5:45 AM [facility] REPOSITORY TYPE CODE TESTS RESULT OUT OF RANGE REFERENCE UNITS LAB L100.1000 4.4-11.0 K/mm3 Normal WBC 7.8 LAB L100.1200 4.6-6.2 M/mm3 Low RBC 3.68 LAB L100.1300 13.0-16.5 g/dl Low HGB 11.0 LAB L100.1400 40-54 % Low HCT 32.8 LAB L100.1500 80-94 fL Normal MCV 89.1 LAB L100.1600 27.0-32.0 pg Normal MCH 29.9 LAB L100.1700 32-36 g/gl Normal MCHC 33.5 LAB L100.1810 11.6-14.6 % Normal RDW CV 13.2 LAB L100.1820 35.1-43.9 fl Normal RDW SD 41.9 LAB L100.1900 150-450 K/mm3 Normal PLT 255 LAB L100.2000 6.2-12.0 fl Normal MPV 9.6 Performed By: #### L100.0500 #### [facility] [address] [place], [place], [id number] BASIC METABOLIC Collected: 11/29/2017 Status: F Source: [facility] PROFILE ([facility]) 5:45 AM [facility] REPOSITORY TYPE CODE TESTS RESULT OUT OF RANGE REFERENCE UNITS LAB L501.0100 74-106 mg/dL High GLU 216 Result Comment: Glucose result greater than or equal to 200 mg/dL suggests DIABETES MELLITUS per A.D.A. criteria. Please note revised GLUCOSE reference range effective 2017. LAB L501.1000 7-18 mg/dL High BUN 57 LAB L501.1100 0.70-1.30 mg/dL High CREAT,SERUM 3.35 Result Comment: The validity of the calculated GFR AND GFRAA in patients over 70 years has not been determined. Clinical correlation is essential. LAB L501.1110 >60 mL/min Low EST GFR 21 Result Comment: Non- GFR Calc LAB L501.1115 >60 mL/min Low EST GFR - AA 25 Result Comment: GFR Calc LAB L501.1255 ml/min Normal Estimated CRCL 26.09 LAB L501.1300 10-20 RATIO Normal BUN/CRE 17.0 LAB L501.2200 8.5-10 mg/dL Low .1 CA 8.2 LAB L501.5300 136-14 mmol/L Normal 5 NA 138 LAB L501.5600 3.5-5. mmol/L Normal 1 K 5.0 LAB L501.5900 98-107 mmol/L Normal CL 103 LAB L501.6100 21.0-3 mmol/L Normal 2.0 CO2 29.0 LAB L501.6200 5-15 Normal GAP 6 Performed By: #### L500.2500 #### [facility] [address] [place], [address] TROPONIN-I Collected: 11/28/2017 Status: F Source: [facility] 11:10 PM [facility] REPOSITORY Order Comment: 'TROP' Serial specimen #1, #2, #3, or #4: 4 TYPE CODE TESTS RESULT OUT OF RANGE REFERENCE UNITS LAB L501.4010 <0.06 ng/mL Normal < 0.02 TROPONIN-I Result Comment: TROPONIN-I EXPECTED VALUES <0.05 NEGATIVE 0.06 - 0.59 AT RISK OF NM > OR = 0.60 SUGGEST NM Performed By: #### L501.4010 #### [facility] [address] [place], [address] BEDSIDE GLUCOSE Collected: 11/28/2017 Status: F Source: [facility] 10:23 PM [facility] REPOSITORY TYPE CODE TESTS RESULT OUT OF REFERENCE UNITS RANGE LAB L501.080 70-110 mg/dL High BEDSIDE GLU 288 Result Comment: MANAGEMENT OF PATIENT CARE PER NURSING PROTOCOL Performed By: #### L501.080 #### [facility] Point of Care [address] [place] [address] VENOUS DUPLEX LOWER Observed: 11/28/2017 Status: F Source: [facility] EXTREMITY 8:24 PM [facility] REPOSITORY [facility] Cardiovascular Services [address] [address] Venous Duplex US - Mickey Extrem 11/28/17922 MR#: [id number] Acct: [id number] Name: WILLIAMS BURGOS Rep #: [id number] : 1970 46 From: Conner Phillips MD Attending Dr: Donna Salomon MD Status: ADM IN Ordering Dr: Clarke Nick MD Date: 11/28/17 Location: U Sex: M C Admitted: 11/28/17 Reason For Study: swelling RIGHT LEFT GSV is normal. GSV is normal. CFV is compressible, spontaneous, phasic, CFV is compressible, spontaneous, phasic, competent and demonstrates normal competent, and demonstrates normal augmentation. augmentation. FV is compressible, spontaneous, phasic, FV is compressible, spontaneous, phasic, competent and demonstrates normal competent and demonstrates normal augmentation. augmentation. POP V is compressible, spontaneous, phasic, POP V is compressible, spontaneous, phasic, competent and demonstrates normal competent and demonstrates normal augmentation. augmentation. T/P Trunk is compressible. T/P Trunk is compressible. PTV is compressible. PTV is compressible. RT PerV is compressible. LT PerV is compressible. Procedure Exam performed portable in ED. The exam was diagnostic. A preliminary report was called and/or faxed to [facility]. Interpretation Summary 1. Bilateral lower extremities with no DVT or SVT. Ordering Physician: Bandar Nick Performed By: Jonny Mills RVT 11/28/172022 Date Conner Phillips MD CC: MD Bandar Nick; Anderson Gaston MD Date Dictated: 11/28/17922 Date Transcribed: 11/28/172022 Hand Packager: Signed TROPONIN-I Collected: 11/28/2017 Status: F Source: [facility] 6:01 PM [facility] REPOSITORY Order Comment: 'TROP' Serial specimen #1, #2, #3, or #4: 3 TYPE CODE TESTS RESULT OUT OF RANGE REFERENCE UNITS LAB L501.4010 <0.06 ng/mL Normal < 0.02 TROPONIN-I Result Comment: TROPONIN-I EXPECTED VALUES <0.05 NEGATIVE 0.06 - 0.59 AT RISK OF NM > OR = 0.60 SUGGEST NM Performed By: #### L501.4010 #### [facility] [address] [facility] [place], [address] HISTORY AND PHYSICAL Observed: 11/28/2017 Status: F Source: [facility] EXAM 5:45 PM [facility] REPOSITORY [facility] Medical Records Department [address] [place] [address] History and Physical 11/28/17 1730 MR#: [id number] Acct: [id number] Name: WILLIAMS BURGOS Rep #: [id number] : 1970 46 From: Donna Salomon MD PCP: Anderson Gaston MD Status: ADM IN Y Location: [place] [id number] Problem List (1) Diastolic congestive heart failure Status: Acute Qualifiers: Heart failure chronicity: acute on chronic Qualified Code(s): I50.33 - Acute on chronic diastolic (congestive) heart failure (2) HTN (hypertension) Status: Chronic Qualifiers: Hypertension type: essential hypertension Qualified Code(s): I10 - Essential (primary) hypertension (3) HLD (hyperlipidemia) Status: Chronic Qualifiers: Hyperlipidemia type: unspecified Qualified Code(s): E78.5 - Hyperlipidemia, unspecified (4) Diabetes mellitus type II, uncontrolled Status: Chronic Qualifiers: Diabetes mellitus residential insulin use: with residential use Diabetes mellitus complication status: with unspecified complications Qualified Code(s): E11.8 - Type 2 diabetes mellitus with unspecified complications; E11.65 - Type 2 diabetes mellitus with hyperglycemia; 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 (5) CKD (chronic kidney disease) stage 3, GFR 30-59 ml/min Status: Chronic History of Present Illness Date of Admission: 11/28/17 Chief Complaint: Progressive SOB - Ongoing for 4 days The patient is a 46 year old M with PMHx of poorly controlled type 2 diabetes mellitus, complicated by diabetic retinopathy in the right eye, blindness in the left eye, diabetic peripheral polyneuropathy, recently discharged in 21 November 2017 after he was admitted with headache, vision changes, tinnitus and managed as acute on chronic diastolic CHF, hypertensive emergency found to have nephrotic range proteinuria. Patient states he was not discharged on Lasix, but noticed progressive shortness of breath as well as weight gain as well as bilateral leg swelling ongoing for the past 4 days. He had seen his primary care doctor yesterday and was just started on Lasix. His noted that he was progressively short of breath and tired and was having increasing work of breathing. In the ED, his pulse ox was 90% on room air was normal and was having increasing work of breathing. History was consistent with CHF. His BNP was 388. EKG shows no acute ST-T changes. Patient had a creatinine of 2.70. Past Medical History Past Medical History (Chronic Problems): Chronic Problems Noncompliance (Chronic) Diabetic neuropathy (Chronic) Diabetic nephropathy (Chronic) Diabetic retinopathy (Chronic) HTN (hypertension) (Chronic) HLD (hyperlipidemia) (Chronic) Blind left eye (Chronic) Diabetes mellitus type II, uncontrolled (Chronic) Obesity (BMI 30.0-34.9) (Chronic) Anxiety and depression (Chronic) GERD (gastroesophageal reflux disease) (Chronic) Chewing tobacco nicotine dependence (Chronic) CKD (chronic kidney disease) stage 3, GFR 30-59 ml/min (Chronic) Leg edema, right (Chronic) History of acute myocardial infarction (Chronic) Allergies No Known Allergies Allergy (Verified 11/28/17 08:44) Home Medications: Ambulatory Orders Medication Instructions Recorded Gabapentin [Neurontin] 300 mg PO TIDCM 07/15/13 Insulin Glargine [Lantus SoloStar 60 units SC QHS 07/15/13 Surgical History: cholecystectomy, - - Cholecystectomy, left retinal tear repair attempts, right eye laser surgery. Smoking Status: Never smoker - *Family History Maternal History Items: Heart Disease Paternal History Items: Cancer - Father w/ Colon CA. Sibling History Items: Diabetes - sister, brother who passed, no kidney disease Review of Systems Constitutional: Reports: Anorexia, Weakness. Denies: Chills, Fever, Night Sweats, Weight Change Eyes: Denies: Blurred vision, Cataracts, Conjunctivae Inflammation, Pain, Redness HEENT: Denies: Difficulty Hearing, Difficulty Swallowing, Head Aches, Hearing Changes, Sinus Congestion, Sinus Drainage Cardiovascular: Denies: Chest Pain, Claudication, Chest Pressure, Orthopnea, Palpitations, Paroxysmal Noc. Dyspnea Respiratory: Denies: Cough, Hemoptysis, Shortness of breath at rest, Shortness of breath upon exertion, Sputum production Gastrointestinal: Denies: Abdominal Pain, Constipation, Hematemesis, Nausea, Vomiting Genitourinary: Denies: Dysuria, Incontinence Musculoskeletal: Denies: Joint Pain, Joint stiffness, Joint swelling, Joint Tenderness Skin: Denies: Rash, Skin Changes, Wounds Neurological: Denies: Numbness, Tingling, Focal weakness Psychiatric: Denies: Anxiety, Depression, Homicidal Ideations, Suicidal Ideations Hematologic/ Lymphatic: Denies: Easy Bruising, Easy Bleeding VTE Information - Inpt Only VTE Present on Admission: No VTE Pharm Prophylaxis ordered?: Yes - Physical Exam General: Alert, Oriented x3, Cooperative, No apparent distress HEENT: Atraumatic, PERRLA, EOMI, Normocephalic Oral: Moist Mucosa Neck: Supple Lungs: Clear to auscultation, Normal air movement Cardiovascular: Regular rate, Regular Rhythm, Normal S1, Normal S2 Abdomen: Bowel Sounds Present, Soft, Non Tender, Non-Distended, No Hepato-splenomegaly Extremities: No edema Skin: No rashes Musculoskeletal: No Tenderness to Palpation of Joints or Extremities Lymphatic: No Cervical, Supraclavicular, or Inguinal Adenopathy Neurological: Cranial nerves II-XII grossly intact, Neuro grossly intact, Motor Exam 5/5 strength throughout Psych/Mental Status: Normal Affect, Appropriate Vital Signs Temp Pulse Resp BP Pulse Ox 97.8 F 76 20 H 123/76 H 97 11/28/17 12:40 11/28/17 14:55 11/28/17 12:40 11/28/17 12:40 11/28/17 12:40 Oxygen Flow Rate (L/min) 4 Oxygen Delivery Method Nasal Cannula Weight: 108.4 kg Body Mass Index (BMI) 36.3 Laboratory Tests Past 24 Hrs Lactic Acid 0.9 Troponin I < 0.02 POC Glucose POC Glucose 321 H Assessment/Plan 46 y/o male with PMHx of diastolic heart failure, hypertension, type 2 DM complicated by neuropathy, retinopathy, and nephropathy, recently admitted with acute on chronic diastolic heart failure and hypertensive emergency as well as nephrotic range proteinuria. Comes back with shortness of breath, weight gain, and bilateral leg swelling. 1. Acute exacerbation of chronic diastolic heart failure secondary to noncompliance and non-continuation of his Lasix, admitting BNP was elevated, chest x-ray consistent with heart failure. Plan: Admit to PCU, resume Lasix IV twice daily, daily weights, strict I's and O's, nephrology consult, follow-up with BMP, trend troponins, with aspirin, TOM inhibitor, beta-elizabeth, statin. 2. Type II DM complicated by nephropathy, neuropathy, adenopathy blood sugars uncontrolled, continue on home insulin regimen and monitor vitals closely. 3. CKD stage III, will consult nephrology to follow-up with us. 4. 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 Obesity, diet and exercise is recommended 6. CAD status post NM, aspirin, statin, beta-elizabeth, will continue to monitor on telemetry 7. DVT prophylaxis with heparin subcu Code Visit Inpatient E AND M: [id number] Init Hosp L3 11/28/17 2222 <Electronically signed by Donna Salomon MD> Date Donna Salomon MD Cosigner Signature: Date (if applicable) CC: Donna Salomon MD; Anderson Gaston MD Signed BEDSIDE GLUCOSE Collected: 11/28/2017 Status: F Source: [facility] 4:47 PM [facility] REPOSITORY TYPE CODE TESTS RESULT OUT OF REFERENCE UNITS RANGE LAB L501.080 70-110 mg/dL High BEDSIDE GLU 321 Result Comment: MANAGEMENT OF PATIENT CARE PER NURSING PROTOCOL Performed By: #### L501.080 #### [facility] Point of Care [address] [facility] [place] [address] EMERGENCY DEPARTMENT Observed: 11/28/2017 Status: F Source: [facility] SUMMARY 4:33 PM [facility] REPOSITORY [facility] Medical Records Department [address] [place] [address] Emergency Department Summary 11/28/17 0900 MR#: [id number] Acct: [id number] Name: WILLIAMS BURGOS Rep #: [id number] : 1970 46 From: Clarke Nick MD PCP: Anderson Gaston MD Status: ADM IN - ER Visit Summary Date of Service: 11/28/17 Chief Complaint: [] Edema shortness of breath cough History of Present Illness: The patient is a 46 M [] diabetes hypertension renal failure CHF recently admitted to the ICU discharged about 5 days ago for the last 2 or 3 days he has had a cough and progressively worsening shortness of breath and edema he was restarted on Lasix took first dose today his urine outputs and bowel habits have been normal. His shortness of breath see Bhavik was brought in by family his pulse ox on room air was about 90% he is not known to require oxygen on oxygen patient states he feels better he is awake and alert answering questions he has obvious facial lid edema his airways intact he is awake and alert Physical Examination: [] Afebrile to the vital signs as above he has obvious again facial edema his airways intact his mucous membranes seem dry his neck is supple his heart tones are distant his lungs are diminished at the bases the abdomen is obese and slightly distended but nontender he has Tom wraps around his lower extremities related to the edema management the edema is about 3+ he has no complaints of pain to his feet the feet are symmetrically warm neurologically he is awake alert moving all 4 he has no history of DVT or PE Test Results: [] Emergency Department Course and Treatment: [] All the above a comprehensive evaluations pursued Chest x-ray shows signs of CHF his BNP is about 400, his troponin is still pending, his EKG shows a sinus with nothing acute the rest of his labs are generally unremarkable his creatinine is 2.70 he did urinate here in the department he was given Lasix 60 mg IV, he is feeling better he is resting more comfortably but not well enough for discharge he has been on all his meds he appears to have failed outpatient management given all the above hypoxia on presentation I have asked the medicine service to see him for admission, they will check his troponin, there is no signs of cardiopulmonary failure or distress at this time Treatment Plan: [] Disposition: [] Stable stable admit Impression: [] Congestive heart failure, acute chronic renal insufficiency, acute on room air, hypertension, history of respiratory failure This note was generated with [employer] dictation software. It may contain incorrect words, spelling, and punctuation that were not noted in review of the chart prior to signing ED Disposition - Plan for ED Patient: Chief Complaint: Shortness of Breath Referrals: Anderson Gaston MD [Primary Care Provider] - What to do if you have Problems For any increased pain, shortness of breath, bleeding, nausea or vomiting, chest pain, or any unexpected problems, contact your Primary Care Provider. Call [facility] ([phone]) or report to the closest Emergency Room. Call 911 if necessary. 11/28/17 7050 <Electronically signed by Clarke Nick MD> Date Clarke Nick MD Cosigner Signature (If Indicated): Date CC: Anderson Gaston MD LACTIC ACID Collected: 11/28/2017 Status: F Source: [facility] 1:47 PM [facility] REPOSITORY TYPE CODE TESTS RESULT OUT OF RANGE REFERENCE UNITS LAB L503.6005 0.4-2.0 mmol/L Normal LACTIC ACID 0.9 Performed By: #### L503.6005 #### [facility] [address] [place], [address] ACETONE SERUM Collected: 11/28/2017 Status: F Source: [facility] 9:45 AM [facility] REPOSITORY TYPE CODE TESTS RESULT OUT OF RANGE REFERENCE UNITS LAB L501.6900 NEG Normal ACETONE SERUM NEGATIVE Performed By: #### L501.6900 #### [facility] [address] [place], [address] CBC W/DIFF, AUTOMATED Collected: 11/28/2017 Status: F Source: [facility] 9:05 AM [facility] REPOSITORY TYPE CODE TESTS RESULT OUT OF RANGE REFERENCE UNITS LAB L100.1000 4.4-11.0 K/mm3 Normal WBC 8.2 LAB L100.1200 4.6-6.2 M/mm3 Low RBC 3.80 LAB L100.1300 13.0-16.5 g/dl Low HGB 11.2 LAB L100.1400 40-54 % Low HCT 32.8 LAB L100.1500 80-94 fL Normal MCV 86.3 LAB L100.1600 27.0-32.0 pg Normal MCH 29.5 LAB L100.1700 32-36 g/gl Normal MCHC 34.1 LAB L100.1810 11.6-14.6 % Normal RDW CV 13.2 LAB L100.1820 35.1-43.9 fl Normal RDW SD 40.4 LAB L100.1900 150-450 K/mm3 Normal PLT 244 LAB L100.2000 6.2-12.0 fl Normal MPV 9.7 LAB L100.2100 47-70 % High NEUT% 77.5 LAB L100.2200 19-41 % Low LY% 11.8 LAB L100.2300 0-10 % Normal MONO% 9.7 LAB L100.2400 0-5 % Normal EO% 0.6 LAB L100.2500 0-1 % Normal BASO% 0.2 LAB L100.2550 0.0-0.9 % Normal IM GRAN % 0.200 Result Comment: IG% - Immature Granulocytes (promyelocytes, myelocytes and metamyelocytes) > 1% indicates that a LEFT SHIFT is Present. LAB L100.2620 2.0-7.7 X10 3/uL Normal Absolute Neut 6.4 LAB L100.2720 0.83-4.51 X10 3/ul Normal Absolute Lymph 0.97 Performed By: #### L100.0100 #### [facility] [address] [place], [address] BASIC METABOLIC Collected: 11/28/2017 Status: F Source: [facility] PROFILE (BMP) 9:05 AM [facility] REPOSITORY TYPE CODE TESTS RESULT OUT OF RANGE REFERENCE UNITS LAB L501.0100 74-106 mg/dL High GLU 354 Result Comment: Glucose result greater than or equal to 200 mg/dL suggests DIABETES MELLITUS per A.D.A. criteria. Please note revised GLUCOSE reference range effective 2017. LAB L501.1000 7-18 mg/dL High BUN 50 LAB L501.1100 0.70-1.30 mg/dL High CREAT,SERUM 2.70 Result Comment: The validity of the calculated GFR AND GFRAA in patients over 70 years has not been determined. Clinical correlation is essential. LAB L501.1110 >60 mL/min Low EST GFR 27 Result Comment: Non- GFR Calc LAB L501.1115 >60 mL/min Low EST GFR - AA 33 Result Comment: GFR Calc LAB L501.1255 ml/min Normal Estimated CRCL 32.37 LAB L501.1300 10-20 RATIO Normal BUN/CRE 18.5 LAB L501.2200 8.5-10 mg/dL Low .1 CA 7.8 LAB L501.5300 136-14 mmol/L Normal 5 NA 141 LAB L501.5600 3.5-5. mmol/L Normal 1 K 4.6 LAB L501.5900 98-107 mmol/L Normal CL 106 LAB L501.6100 21.0-3 mmol/L Normal 2.0 CO2 27.0 LAB L501.6200 5-15 Normal GAP 8 Performed By: #### L500.2500 #### [facility] [address] [place], [address] LACTIC ACID Collected: 11/28/2017 Status: F Source: [facility] 9:05 AM [facility] REPOSITORY Order Comment: Yes/No query for Sepsis Lactate Rule Y TYPE CODE TESTS RESULT OUT OF REFERENCE UNITS RANGE LAB L503.6005 0.4-2.0 mmol/L High LACTIC ACID 2.3 Result Comment: Critical Result(s) Called at: 08:47:02 11/28/2017 by: Jes Fernandez Performed By: #### L503.6005 #### [facility] [address] [place], [address] BNP,B-TYPE NATRIURETIC Collected: 11/28/2017 Status: F Source: [facility] PEPTIDE 9:05 AM [facility] REPOSITORY TYPE CODE TESTS RESULT OUT OF RANGE REFERENCE UNITS LAB L503.6620 0-100 pg/mL High B-TYPE 388.9 ZARI PEP Performed By: #### L503.6620 #### [facility] [address] [place], [address] TROPONIN-I Collected: 11/28/2017 Status: F Source: [facility] 9:05 AM [facility] REPOSITORY Order Comment: 'TROP' Serial specimen #1, #2, #3, or #4: 1 TYPE CODE TESTS RESULT OUT OF RANGE REFERENCE UNITS LAB L501.4010 <0.06 ng/mL Normal 0.03 TROPONIN-I Result Comment: TROPONIN-I EXPECTED VALUES <0.05 NEGATIVE 0.06 - 0.59 AT RISK OF NM > OR = 0.60 SUGGEST NM Performed By: #### L501.4010 #### [facility] [address] [place], [address] CHEST 1 VIEW Observed: 11/28/2017 Status: F Source: [facility] (PORTABLE) 8:52 AM [facility] REPOSITORY [facility] Imaging Services [address] [place] [address] Chest 1 View (Portable) MR#: [id number] Acct: [id number] Name: WILLIAMS BURGOS Rep #: [id number] : 1970 M 46 From: Tristan France MD PCP: Anderson Gaston MD Status: PRE ER Study: Chest 1 View (Portable) Date of Exam: 11/28/17 Exam# [id number] Ordering Dr: Clarke Nick MD STUDY: X-RAY CHEST REASON FOR EXAM: Male, 46 years old. Shortness of breath. TECHNIQUE: Single AP portable view of the chest. COMPARISON: Comparison is made with prior study dated November 19, 2017. FINDINGS: EKG electrodes are seen. Decreased inspiratory effort. There is evidence of CHF. Increased markings are seen in the right infrahilar region. This may represent either atelectasis and/or early infiltrate. Follow-up is recommended. Blunting of both costophrenic angles. Normal size heart. Normal mediastinum and reena. Normal visualized pulmonary arteries. Normal visualized aortic arch and descending thoracic aorta. Normal visualized thoracic spine. Normal visualized ribs, clavicles, and shoulders. There is no demonstrated abnormality of the visualized soft tissue structures of the upper abdomen. RAD/Chest 1 View (Portable) IMPRESSION: Findings in keeping with CHF. Increased right infrahilar markings. Follow-up is recommended. Electronically Signed: Tristan France MD at 9:37 EDT Tel [phone], Service support , CC: MD Bandar Nick; Anderson Gaston MD Hand Packager: Signed PROGRESS Observed: 11/27/2017 Status: COMPLETED Source: [place] 11:00 AM [facility] REPOSITORY HNO ID: [id number] Author: Chelsea Andrade Service: (none) Author Type: Registered Nurse Type: Progress Notes Filed: 06/11/2018 4:01 PM Note Text: PRIMARY CARE COORDINATION FOLLOW-UP NOTE Provider Action/FYI:Pt will think about what behavioral health program he wants to join. Patient identified by name and date of . YES Spoke to Oscar [facility] Summary: Had called to enroll pt in their IOP program, however they do not take [employer] insurance and being out of network the copay would be prohibitive. Discussed possibilities of [facility], Concerns: Pt has some mental health issue and strongly recc he engage with counseling center. 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: Will follow up as needed Signature Chelsea Andrade structural steel equipment erector Pocketed Spring Machine Operator Internal Medicine [facility] November 27, 2017 EUGENIOTOUTREACH Observed: 11/27/2017 Status: COMPLETED Source: [place] 12:00 [facility] REPOSITORY Patient Outreach (INTMWS) WILLIAMS BURGOS ([id number]) 1970 M Date Time Provider Department 11/27/17 CHELSEA SMITH During your visit today, we recorded the following information about you: Chelsea Cottrell RN 06/11/2018 4:01 PM Signed PRIMARY CARE COORDINATION FOLLOW-UP NOTE Provider Action/FYI:Pt will think about what behavioral health program he wants to join. Patient identified by name and date of . YES Spoke to Oscar barrios [facility] Summary: Had called to enroll pt in their IOP program, however they do not take [employer] insurance and being out of network the copay would be prohibitive. Discussed possibilities of [facility], Concerns: Pt has some mental health issue and strongly recc he engage with counseling center. 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: Will follow up as needed Signature Chelsea Andrade RN Ambulatory Pocketed Spring Machine Operator Internal Medicine [facility] November 27, 2017 Allergies As of Date: 11/27/2017 (No Known Allergies) Date Reviewed: 11/26/2017 Reviewed by: Catalina Lala LPN - Fully Assessed Reason for Visit: Pocketed Spring Machine Operator Chronic Care [9982] Prescriptions as of 11/27/2017 Sig: X INSULIN GLARGINE (U-100) 100 * Inject 60 Units subcutaneousl* COMPOUNDED PRESCRIPTION KNEE HIGH COMPRESSION STOCKIN* X INSULIN ASPART U-100 100 UNI* Inject insulin three times da* X FUROSEMIDE 20 MG TABLET Take 1 tablet by mouth once d* X POTASSIUM CHLORIDE ER 10 MEQ * Take 1 capsule by mouth twice* X ATENOLOL 100 MG TABLET Take 1 tablet by mouth once d* X GABAPENTIN 300 MG CAPSULE Take 1 capsule by mouth three* X ATORVASTATIN 20 MG TABLET Take 1 tablet by mouth at bed* RANITIDINE 300 MG TABLET Take 1 tablet by mouth daily * X BUPROPION XL 300 MG 24 HR TAB Take 1 tablet by mouth once d* X AMLODIPINE 5 MG TABLET Take 1 tablet by mouth once d* X HYDROCHLOROTHIAZIDE 25 MG TAB* Take 1 tablet by mouth once d* X LISINOPRIL 40 MG TABLET Take 1 tablet by mouth once d* ASPIRIN 81 MG CHEWABLE TABLET Take 81 mg by mouth once adela* ACETAMINOPHEN ORAL Take by mouth. 1000 mg bid f* Problem List As Of Date 11/27/2017 Noted Resolved Uncontrolled type 2 diabetes mellitus with comp*INVALID FOR* More... Hypertension goal BP (blood pressure) < 140/90 *INVALID FOR* More... HYPERLIPIDEMIA NEC/NOS [E78.5] INVALID FOR* More... DEPRESSIVE DISORDER NEC [F32.9] INVALID FOR* More... ED (erectile dysfunction) [N52.9] INVALID FOR* Lower urinary tract symptoms (LUTS) [R39.9] INVALID FOR* History of kidney stones [Z87.442] INVALID FOR* Microscopic hematuria [R31.29] INVALID FOR* Diabetic polyneuropathy associated with type 2 *INVALID FOR* More... Acute pain of right shoulder [M25.511] INVALID FOR* More... Nausea [R11.0] INVALID FOR* More... Vomiting [R11.10] INVALID FOR* More... Moderate episode of recurrent major depressive *INVALID FOR* Stage 3 chronic kidney disease [N18.3] INVALID FOR* Encounter Status:Closed by CHELSEA ANDRADE on 06/11/18 PROGRESS Observed: 11/26/2017 Status: COMPLETED Source: [place] 3:57 PM [facility] REPOSITORY [facility] ID: [id number] Author: Anderson Gaston Service: (none) Author Type: Physician Type: Progress Notes Filed: 11/26/2017 5:12 PM Note Text: ? Reason for Visit Patient presents with: Established Patient: TCM [facility] D/C 11/21; CHF, DM, HTN, ILDA Williams Burgos is a 46 year old male who presents here today for Above Complaints.. Health Maintenance LDL HPI Provider Action/FYI: Pt will require a lot of intervention. Coming in on 11/26 for TCM- would recc PT for strengthening, carry out clerk and shelf stocker, psych. ? Initial contact with patient post discharge, spoke to Williams. Patient identified by name and . ? SUMMARY: -Pt discharged from [facility] on 11/21. Adm 11/19 -Follow up appointment on 11/26/[address] Gaston. -Medication review done with patient. -Admitted for: HTN crisis, uncontrolled DM, renal failure. ? CONCERNS: Pt sounds like he is not very compliant with meds although since D/C he says he is. Only took 30u Lantus last night since, per pt, that's what they gave him in hospital. He did, however, have a cheese steak 12 inch sub for dinner last night. His BS this morning was 146 per pr. He is drinking diet soft drinks. He wanted to go to [employer] for dinner but GF dissuaded him. Pt will be challenging in finding goals he is willing to attain regarding diet. We discussed eating more fruits and veggies. He then stated he had an orange with cereal breakfast (corn flakes,no sugar). He said he was having grilled chix and salad for lunch. ? NEW MEDICATIONS: None- adjusted doses only ? MEDS HELD/DISCONTINUED: None ? BRIEF HOSPITAL COURSE: 46 yo F w/PMH uncontrolled DM, non-compliance, morbid obesity,diabetic retinopathy R eye, severe HTN, presented to [facility] ED 11/19 with complaint of tinnitus, vision changes. Has edema legs, weight gain,exertional dyspnea. Has not been taking meds as directed nor following any controlled diet. BP -209/131. K-3.4, BUN/Cr 37/2.47. BS was 359, A1c 10.9. CT brain negative. He was admitted for HTN crisis. Given IV Hydralazine and NTG infusion. Lisinopril was D/C'd due to kidneys. ECHO- 65% EF. Mod concentric LVH, trivial R>L interatrial shunt. Diuresed 2Ls. Diet ed by carry out clerk and shelf stocker given, meds adjusted, Seen by Dr Montiel and kidney protein consistent with nephrotic syndrome. GFR=25.. [facility] for counseling. Hospitalist felt his self neglect related to his depression. Since he has been home from hospital and since then he has been doing better. Since I had a long discussion the last time, this time we asked him what he needs from us and to tell us what he think of what happened. Both him and his have the same feeling that this was like a wake up call and he realized that he is not feeling well/ No problem-specific Assessment AND Plan notes found for this encounter. PAST MEDICAL HISTORY Diagnosis Date - Bronchitis - Depression - Detached retina - DM type 2, goal HbA1c < 7% (HCC) - GERD (gastroesophageal reflux disease) - Hyperlipidemia - Kidney stones - PNA (pneumonia) - Unspecified essential hypertension - Vitamin D deficiency PAST SURGICAL HISTORY Procedure Laterality Date - CYSTOSCOPY,REMV CALCULUS,COMPLIC 1999 - PAST SURGICAL HISTORY OF Left 2012 AND 2014 removal eye fluid with instillation oil - REMOVAL GALLBLADDER 1998 Cholecystectomy FAMILY HISTORY Problem Relation Age of Onset - Colon Cancer Father 53 - Diabetes Brother 52 - Diabetes Sister - Diabetes Mother 78 - Cancer Brother 49 lung - Diabetes Son Social History Substance Use Topics - Smoking status: Never Smoker - Smokeless tobacco: Current User Types: Snuff Comment: snuff x 33 years - Alcohol use Yes Comment: rarely Past medical history, appointments, medications, allergies reviewed. Pertinent Lab/Diagnostic Studies are reviewed and discussed today Current Outpatient Prescriptions: - atorvastatin (LIPITOR) 20 mg tablet - metoprolol tartrate, short acting, (LOPRESSOR) 25 mg tablet - insulin aspart (NOVOLOG FLEXPEN) 100 unit/mL inpn - insulin glargine (LANTUS SOLOSTAR) 100 unit/mL (3 mL) inpn - Ranitidine HCl (ZANTAC) 300 mg tablet - gabapentin (NEURONTIN) 600 mg tablet - buPROPion XL (WELLBUTRIN XL) 300 mg 24 hr tablet - amLODIPine (NORVASC) 5 mg tablet - hydroCHLOROthiazide (HYDRODIURIL, ESIDRIX) 25 mg tablet - lisinopril (ZESTRIL, PRINIVIL) 40 mg tablet - aspirin 81 mg chewable tablet - ACETAMINOPHEN ORAL Review of Systems CONSTITUTIONAL: No fevers, chills night sweats, unintended weight loss CARDIOVASCULAR: No chest pain, dyspnea, palpitations, orthopnea, PND, ankle edema. PULM: No dyspnea, unexplained cough. GI: No dysphagia/odynophagia, problematic reflux, constipation, diarrhea, changes in stool habits, hematochezia, melena. : No new urinary complaints, including dysuria, gross hematuria or pyuria. NEURO: No new balance problems, peripheral weakness/paresthesias or numbness of concern. Physical Exam BP 170/80 (BP Site: Left Arm, BP Position: Sitting, BP Cuff Size: Large Adult) Pulse 84 Resp 16 Ht 172.7 cm (5' 8) Wt 106.1 kg (234 lb) SpO2 99% BMI 35.58 kg/m2 General appearance: Well appearing, alert, in no acute distress, well nourished. Skin: Skin color, texture, turgor normal, no suspicious rashes or lesions Head: Normocephalic, no masses, lesions, tenderness or abnormalities Eyes: Anicteric sclera. Pupils are equally round and reactive to light. Extraocular movements are intact. Lungs: Lungs clear to auscultation. No wheezing, rhonchi, rales Heart: RRR without murmur, gallop, or rubs. Pedal edema: 2+ ASSESSMENT/PLAN: 1. Hospital discharge follow-up - ICD9: V67.59, ICD10: Z09 (primary diagnosis) Patient involved in shared decision making for management of her medical issues. History and medications reviewed. Epic updated as needed Refills taken care of and meds adjusted as indicated after reviewed history, exam and labs. Health Maintenance reviewed. Updated record and/or ordered tests as recorded. 2. Uncontrolled type 2 diabetes mellitus with complication, with long-term current use of insulin (HCC) - ICD9: 250.82, V58.67, ICD10: E11.8, E11.65, Z79.4 Had some low readings so reduced his sugars to 60 unit of long acting - INSULIN GLARGINE (U-100) 100 UNIT/ML (3 ML) SUBCUTANEOUS PEN - INSULIN GLARGINE (U-100) 100 UNIT/ML (3 ML) SUBCUTANEOUS PEN 3. Essential hypertension - ICD9: 401.9, ICD10: I10 - good control - Recommended regular aerobic exercise. - Recommend home blood pressure monitoring, to bring results in on next visit - Goal of BP <130/80 4. Moderate episode of recurrent major depressive disorder (HCC) - ICD9: 296.32, ICD10: F33.1 5. Pedal edema - ICD9: 782.3, ICD10: R60.0 Compression stockings 6. Hypokalemia - ICD9: 276.8, ICD10: E87.6 - BASIC METABOLIC PNL 7. Uncontrolled hypertension - ICD9: 401.9, ICD10: I10 Changed to atenolol, to start today if possible - Recommended regular aerobic exercise. - Recommend home blood pressure monitoring, to bring results in on next visit - Goal of BP <130/80 ANDERSON GASTON MD PROGRESS Observed: 11/26/2017 Status: COMPLETED Source: [place] 3:51 PM [facility] REPOSITORY [facility] ID: [id number] Author: Chelsea Cottrell [facility] Service: (none) Author Type: Registered Nurse Type: Progress Notes Filed: 11/27/2017 10:57 AM Note Text: PRIMARY CARE COORDINATION IN OFFICE VISIT WITH PCP Patient has been identified by name and date of . PCP Assessment/Plan: Reviewed PCP plan with patient using Teach Back Pt has promised to do better repeatedly with MD who is caring but frustrated with his not taking care of himself. He has restarted his Wellbutrin, taking meds regularly, including insulin. Following better diet. Had a BS in 50s during the night a couple days ago. Discussed bring meter next appt. Discussed doing diet/insulin/BS diary to correlate BSs. He has appt with LETTY Adams coming up. She saw him in hospital but will begin seeing him in office. His BS AFTER bkfst this AM was 206- 2 hr pp, 1pm BS 95 pc lunch (1 slice pizza, fruit cup); PCC Plan of Care: Patient concerns: Was really frightened by this hospitalization when they told him his kidneys were being damaged and was too HTNive. Has a 9yr old who wsa in the ER with his who dried so was so afraid of losing her dad. We discussed that at length. Patient goals: To eat healthier, be able to be more active with daughter- go for walks in evening as they did last summer and fall. I recc he consider volunteer work somewhere in town that he felt a passion for. PCC Interventions: -Contact Behavioral Health for IOP Program for pt. -Cancel scopes w/Dr. Kaufman for [place] -F/U Fri to see how he is doing w/Lantus decrease and change in BP med and swelling. Remind him to get BMP done next week. Next Office Visit: 02/19/2018 Plan For Next Call: Tomorrow with info about counseling Chelsea Andrade RN Ambulatory Pocketed Spring Machine Operator Internal Medicine [facility] November 26, 2017 CNOV Observed: 11/26/2017 Status: COMPLETED Source: [place] 3:40 PM [facility] REPOSITORY Office Visit (INTMWS) WILLIAMS BURGOS ([id number]) 1970 M Date Time Provider Department 11/26/17 3:40 PM ANDERSON GASTON INTMWS During your visit today, we recorded the following information about you: Pulse Respiration Blood pressure Weight 84/minute 16/minute 160/80 106.1 kg Height 1.727 m ANDERSON GASTON MD 11/26/2017 5:12 PM Signed ? Reason for Visit Patient presents with: Established Patient: [facility] D/C 11/21; CHF, DM, HTN, ILDA Williams Burgos is a 46 year old male who presents here today for Above Complaints.. Health Maintenance LDL HPI Provider Action/FYI: Pt will require a lot of intervention. Coming in on 11/26 for TCM- would recc PT for strengthening, carry out clerk and shelf stocker, psych. ? Initial contact with patient post discharge, spoke to Williams. Patient identified by name and . ? SUMMARY: -Pt discharged from [facility] on 11/21. Adm 11/19 -Follow up appointment on 11/26/[address] Gaston. -Medication review done with patient. -Admitted for: HTN crisis, uncontrolled DM, renal failure. ? CONCERNS: Pt sounds like he is not very compliant with meds although since D/C he says he is. Only took 30u Lantus last night since, per pt, that's what they gave him in hospital. He did, however, have a cheese steak 12 inch sub for dinner last night. His BS this morning was 146 per pr. He is drinking diet soft drinks. He wanted to go to [employer] for dinner but GF dissuaded him. Pt will be challenging in finding goals he is willing to attain regarding diet. We discussed eating more fruits and veggies. He then stated he had an orange with cereal breakfast (corn flakes,no sugar). He said he was having grilled chix and salad for lunch. ? NEW MEDICATIONS: None- adjusted doses only ? MEDS HELD/DISCONTINUED: None ? BRIEF HOSPITAL COURSE: 46 yo F w/PMH uncontrolled DM, non-compliance, morbid obesity,diabetic retinopathy R eye, severe HTN, presented to [facility] ED 11/19 with complaint of tinnitus, vision changes. Has edema legs, weight gain,exertional dyspnea. Has not been taking meds as directed nor following any controlled diet. BP -209/131. K-3.4, BUN/Cr 37/2.47. BS was 359, A1c 10.9. CT brain negative. He was admitted for HTN crisis. Given IV Hydralazine and NTG infusion. Lisinopril was D/C'd due to kidneys. ECHO- 65% EF. Mod concentric LVH, trivial RANDgt;L interatrial shunt. Diuresed 2Ls. Diet ed by carry out clerk and shelf stocker given, meds adjusted, Seen by Dr Montiel and kidney protein consistent with nephrotic syndrome. GFR=25.. [facility] for counseling. Hospitalist felt his self neglect related to his depression. Since he has been home from hospital and since then he has been doing better. Since I had a long discussion the last time, this time we asked him what he needs from us and to tell us what he think of what happened. Both him and his have the same feeling that this was like a wake up call and he realized that he is not feeling well/ No problem-specific Assessment ANDamp; Plan notes found for this encounter. PAST MEDICAL HISTORY Diagnosis Date - Bronchitis - Depression - Detached retina - DM type 2, goal HbA1c ANDlt; 7% (HCC) - GERD (gastroesophageal reflux disease) - Hyperlipidemia - Kidney stones - PNA (pneumonia) - Unspecified essential hypertension - Vitamin D deficiency PAST SURGICAL HISTORY Procedure Laterality Date - CYSTOSCOPY,REMV CALCULUS,COMPLIC 1999 - PAST SURGICAL HISTORY OF Left 2012 ANDamp; 2014 removal eye fluid with instillation oil - REMOVAL GALLBLADDER 1998 Cholecystectomy FAMILY HISTORY Problem Relation Age of Onset - Colon Cancer Father 53 - Diabetes Brother 52 - Diabetes Sister - Diabetes Mother 78 - Cancer Brother 49 lung - Diabetes Son Social History Substance Use Topics - Smoking status: Never Smoker - Smokeless tobacco: Current User Types: Snuff Comment: snuff x 33 years - Alcohol use Yes Comment: rarely Past medical history, appointments, medications, allergies reviewed. Pertinent Lab/Diagnostic Studies are reviewed and discussed today Current Outpatient Prescriptions: - atorvastatin (LIPITOR) 20 mg tablet - metoprolol tartrate, short acting, (LOPRESSOR) 25 mg tablet - insulin aspart (NOVOLOG FLEXPEN) 100 unit/mL inpn - insulin glargine (LANTUS SOLOSTAR) 100 unit/mL (3 mL) inpn - Ranitidine HCl (ZANTAC) 300 mg tablet - gabapentin (NEURONTIN) 600 mg tablet - buPROPion XL (WELLBUTRIN XL) 300 mg 24 hr tablet - amLODIPine (NORVASC) 5 mg tablet - hydroCHLOROthiazide (HYDRODIURIL, ESIDRIX) 25 mg tablet - lisinopril (ZESTRIL, PRINIVIL) 40 mg tablet - aspirin 81 mg chewable tablet - ACETAMINOPHEN ORAL Review of Systems CONSTITUTIONAL: No fevers, chills night sweats, unintended weight loss CARDIOVASCULAR: No chest pain, dyspnea, palpitations, orthopnea, PND, ankle edema. PULM: No dyspnea, unexplained cough. GI: No dysphagia/odynophagia, problematic reflux, constipation, diarrhea, changes in stool habits, hematochezia, melena. : No new urinary complaints, including dysuria, gross hematuria or pyuria. NEURO: No new balance problems, peripheral weakness/paresthesias or numbness of concern. Physical Exam BP 170/80 (BP Site: Left Arm, BP Position: Sitting, BP Cuff Size: Large Adult) Pulse 84 Resp 16 Ht 172.7 cm (5' 8ANDquot;) Wt 106.1 kg (234 lb) SpO2 99% BMI 35.58 kg/m2 General appearance: Well appearing, alert, in no acute distress, well nourished. Skin: Skin color, texture, turgor normal, no suspicious rashes or lesions Head: Normocephalic, no masses, lesions, tenderness or abnormalities Eyes: Anicteric sclera. Pupils are equally round and reactive to light. Extraocular movements are intact. Lungs: Lungs clear to auscultation. No wheezing, rhonchi, rales Heart: RRR without murmur, gallop, or rubs. Pedal edema: 2+ ASSESSMENT/PLAN: 1. Hospital discharge follow-up - ICD9: V67.59, ICD10: Z09 (primary diagnosis) Patient involved in shared decision making for management of her medical issues. History and medications reviewed. Epic updated as needed Refills taken care of and meds adjusted as indicated after reviewed history, exam and labs. Health Maintenance reviewed. Updated record and/or ordered tests as recorded. 2. Uncontrolled type 2 diabetes mellitus with complication, with long-term current use of insulin (HCC) - ICD9: 250.82, V58.67, ICD10: E11.8, E11.65, Z79.4 Had some low readings so reduced his sugars to 60 unit of long acting - INSULIN GLARGINE (U-100) 100 UNIT/ML (3 ML) SUBCUTANEOUS PEN - INSULIN GLARGINE (U-100) 100 UNIT/ML (3 ML) SUBCUTANEOUS PEN 3. Essential hypertension - ICD9: 401.9, ICD10: I10 - good control - Recommended regular aerobic exercise. - Recommend home blood pressure monitoring, to bring results in on next visit - Goal of BP ANDlt;130/80 4. Moderate episode of recurrent major depressive disorder (HCC) - ICD9: 296.32, ICD10: F33.1 5. Pedal edema - ICD9: 782.3, ICD10: R60.0 Compression stockings 6. Hypokalemia - ICD9: 276.8, ICD10: E87.6 - BASIC METABOLIC PNL 7. Uncontrolled hypertension - ICD9: 401.9, ICD10: I10 Changed to atenolol, to start today if possible - Recommended regular aerobic exercise. - Recommend home blood pressure monitoring, to bring results in on next visit - Goal of BP ANDlt;130/80 ANDERSON GASTON MD Referring Provider: SELF [200] Allergies As of Date: 11/26/2017 (No Known Allergies) Date Reviewed: 11/26/2017 Reviewed by: Catalina Lala LPN - Fully Assessed Reason for Visit: Established Patient [175] Cmt: [facility] D/C 11/21; CHF, DM, HTN, ILDA Primary Visit Diagnosis:Hospital discharge follow-up [Z09] Other Visit Diagnoses:Uncontrolled type 2 diabetes mellitus with complication, with long-term current use of insulin (HCC) [E11.8, E11.65, Z79.4] Essential hypertension [I10] Moderate episode of recurrent major depressive disorder (HCC) [F33.1] Pedal edema [R60.0] Hypokalemia [E87.6] Uncontrolled hypertension [I10] 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 Take 15 units with each mealDisp: 10 PenRfl: 11 furosemide (LASIX) 20 mg tabletTake 1 tablet by mouth once daily.Disp: 14 tabletRfl: 1 potassium chloride SR (MICRO-K) 10 mEq CR capsuleTake 1 capsule by mouth twice daily.Disp: 28 capsuleRfl: 1 atenolol (TENORMIN) 100 mg tabletTake 1 tablet by mouth once daily.Disp: 30 tabletRfl: 2 BASIC METABOLIC PNL [SQBMP] Order #: [id number] FUTURE >Compression Knee Highs 30-40 mmKNEE HIGH COMPRESSION STOCKINGS, 30-40 MM, I DX: EDEMADisp: 1 EachRfl: 1 insulin glargine (LANTUS SOLOSTAR U-100 INSULIN) 100 unit/mL (3 mL) inpnSeventy five (60) units in the evening.Disp: 20 PenRfl: 6 gabapentin (NEURONTIN) 300 mg capsuleTake 1 capsule by mouth three times daily for 30 days.Disp: 90 capsuleRfl: 2 atorvastatin (LIPITOR) 20 mg tabletTake 1 tablet by mouth at bedtime as needed.Disp: 30 tabletRfl: 2 Prescriptions as of 11/26/2017 Sig: INSULIN ASPART U-100 100 UNI* Inject insulin three times da* FUROSEMIDE 20 MG TABLET Take 1 tablet by mouth once d* POTASSIUM CHLORIDE ER 10 MEQ * Take 1 capsule by mouth twice* ATENOLOL 100 MG TABLET Take 1 tablet by mouth once d* COMPOUNDED PRESCRIPTION KNEE HIGH COMPRESSION STOCKIN* INSULIN GLARGINE (U-100) 100 * Seventy five (60) units in th* GABAPENTIN 300 MG CAPSULE Take 1 capsule by mouth three* ATORVASTATIN 20 MG TABLET Take 1 tablet by mouth at bed* RANITIDINE 300 MG TABLET Take 1 tablet by mouth daily * BUPROPION XL 300 MG 24 HR TAB Take 1 tablet by mouth once d* AMLODIPINE 5 MG TABLET Take 1 tablet by mouth once d* HYDROCHLOROTHIAZIDE 25 MG TAB* Take 1 tablet by mouth once d* LISINOPRIL 40 MG TABLET Take 1 tablet by mouth once d* ASPIRIN 81 MG CHEWABLE TABLET Take 81 mg by mouth once adela* ACETAMINOPHEN ORAL Take by mouth. 1000 mg bid f* Problem List As Of Date 11/26/2017 Noted Resolved Uncontrolled type 2 diabetes mellitus with comp*INVALID FOR* More... Hypertension goal BP (blood pressure) < 140/90 *INVALID FOR* More... HYPERLIPIDEMIA NEC/NOS [E78.5] INVALID FOR* More... DEPRESSIVE DISORDER NEC [F32.9] INVALID FOR* More... ED (erectile dysfunction) [N52.9] INVALID FOR* Lower urinary tract symptoms (LUTS) [R39.9] INVALID FOR* History of kidney stones [Z87.442] INVALID FOR* Microscopic hematuria [R31.29] INVALID FOR* Diabetic polyneuropathy associated with type 2 *INVALID FOR* More... Acute pain of right shoulder [M25.511] INVALID FOR* More... Nausea [R11.0] INVALID FOR* More... Vomiting [R11.10] INVALID FOR* More... Moderate episode of recurrent major depressive *INVALID FOR* Stage 3 chronic kidney disease [N18.3] INVALID FOR* Prescriptions ordered this encounter Disp Refills Start End INSULIN GLARGINE (U-100) 100 UNIT/ML* 20 P* 6 11/26/2017 11/26/2017 Sig: Seventy five (75) units in the evening. INSULIN ASPART U-100 100 UNIT/ML [place]* 10 P* 11 11/26/2017 Class: Med Update Sig: Inject insulin three times daily at first bite of food. Take 15 units with each meal FUROSEMIDE 20 MG TABLET 14 t* 1 11/26/2017 Route: ORAL Sig: Take 1 tablet by mouth once daily. POTASSIUM CHLORIDE ER 10 MEQ CAPSULE* 28 c* 1 11/26/2017 Route: ORAL Sig: Take 1 capsule by mouth twice daily. ATENOLOL 100 MG TABLET 30 t* 2 11/26/2017 Route: ORAL Sig: Take 1 tablet by mouth once daily. COMPOUNDED PRESCRIPTION 1 Ea* 1 11/26/2017 Class: Print RX Sig: KNEE HIGH COMPRESSION STOCKINGS, 30-40 MM, I DX: EDEMA INSULIN GLARGINE (U-100) 100 UNIT/ML* 20 P* 6 11/26/2017 Cmt: Please discard the rx for 75 units. Sig: Seventy five (60) units in the evening. GABAPENTIN 300 MG CAPSULE 90 c* 2 11/26/2017 12/26/2017 Route: ORAL Sig: Take 1 capsule by mouth three times daily for 30 days. ATORVASTATIN 20 MG TABLET 30 t* 2 11/26/2017 Route: ORAL Sig: Take 1 tablet by mouth at bedtime as needed. Medications Discontinued During This Encounter metFORMIN ER (GLUCOPHAGE XR) 500 mg * 60 t* 3 08/08/2016 11/26/2017 Sig: Take one tablet by mouth twice daily with meals Disc: Discontinued by another Health Care Provider metoprolol tartrate, short acting, (* 60 t* 3 11/12/2017 11/26/2017 Route: ORAL Sig: Take 1 tablet by mouth twice daily. Disc: Reason for discontinue is not on file. insulin glargine (LANTUS SOLOSTAR) 1* 10/24/2017 11/26/2017 Class: Med Update Sig: Seventy five (75) units in the evening. Disc: Reason for discontinue is not on file. insulin aspart (NOVOLOG FLEXPEN) 100* 10 P* 11 10/24/2017 11/26/2017 Class: Med Update Sig: Inject insulin three times daily at first bite of food. Take 20 w/breakfast, 15 w/lunch, 20 w/supper. Disc: Reason for discontinue is not on file. insulin glargine (LANTUS SOLOSTAR U-* 20 P* 6 11/26/2017 11/26/2017 Sig: Seventy five (75) units in the evening. Disc: Reason for discontinue is not on file. gabapentin (NEURONTIN) 600 mg tablet 90 t* 1 05/03/2017 11/26/2017 Route: ORAL Sig: Take 1 tablet by mouth three times daily. Disc: Reason for discontinue is not on file. atorvastatin (LIPITOR) 20 mg tablet 30 t* 2 11/26/2017 11/26/2017 Route: ORAL Sig: Take 1 tablet by mouth at bedtime as needed. Disc: Reason for discontinue is not on file. Encounter Status:Closed by ANDERSON GASTON MD on 11/26/17 PROGRESS Observed: 11/26/2017 Status: COMPLETED Source: [place] 1:10 PM [facility] REPOSIT[facility] HNO ID: [id number] Author: Anderson Gaston Service: (none) Author Type: Physician Type: Progress Notes Filed: 11/29/2017 9:50 AM Note Text: noted CNPN Observed: 11/26/2017 Status: COMPLETED Source: [place] 12:00 AM [facility] REPOSITORY Telephone (INTMWS) WILLIAMS BURGOS ([id number]) 1970 M Date Time Provider Department 11/26/17 ANDERSON GASTON INTAnithaWS During your visit today, we recorded the following information about you: Annalisa De La Vega LPN 11/26/2017 4:50 PM Signed [facility] pharmacy calling for clarification on prescription for Lantus. Two different units are in the script. Asking if you want 75 units or 60 units. Please resend updated prescription. ANDERSON GASTON MD 11/26/2017 4:54 PM Signed I clarified in the pharamacy not to disregard the 75 units. But to take the 60 units daily Catalina Lala LPN 11/26/2017 5:03 PM Signed faxed clarification to nathan Negreteel Amy AUTO TECH 11/27/2017 8:11 AM Signed Previous Rx sent for Lantus contained two different Units. Rx pending. Sara Reyes LPN 11/27/2017 8:11 AM Signed Addended by: SARA REYES LPN on: 11/27/2017 08:11 AM Modules accepted: Orders ANDERSON GASTON MD 11/27/2017 10:03 AM Signed Addended by: ANDERSON GASTON MD on: 11/27/2017 10:03 AM Modules accepted: Orders Allergies As of Date: 11/26/2017 (No Known Allergies) Date Reviewed: 11/26/2017 Reviewed by: Catalina Lala LPN - Fully Assessed Reason for Visit: Medication Problem [65] Visit Diagnosis:Uncontrolled type 2 diabetes mellitus with complication, with long-term current use of insulin (HCC) [E11.8, E11.65, Z79.4] Order(s):insulin glargine (LANTUS SOLOSTAR U-100 INSULIN) 100 unit/mL (3 mL) inpnInject 60 Units subcutaneously every evening.Disp: 20 PenRfl: 6 Prescriptions as of 11/26/2017 Sig: INSULIN GLARGINE (U-100) 100 * Inject 60 Units subcutaneousl* INSULIN ASPART U-100 100 UNI* Inject insulin three times da* FUROSEMIDE 20 MG TABLET Take 1 tablet by mouth once d* POTASSIUM CHLORIDE ER 10 MEQ * Take 1 capsule by mouth twice* ATENOLOL 100 MG TABLET Take 1 tablet by mouth once d* COMPOUNDED PRESCRIPTION KNEE HIGH COMPRESSION STOCKIN* GABAPENTIN 300 MG CAPSULE Take 1 capsule by mouth three* ATORVASTATIN 20 MG TABLET Take 1 tablet by mouth at bed* RANITIDINE 300 MG TABLET Take 1 tablet by mouth daily * BUPROPION XL 300 MG 24 HR TAB Take 1 tablet by mouth once d* AMLODIPINE 5 MG TABLET Take 1 tablet by mouth once d* HYDROCHLOROTHIAZIDE 25 MG TAB* Take 1 tablet by mouth once d* LISINOPRIL 40 MG TABLET Take 1 tablet by mouth once d* ASPIRIN 81 MG CHEWABLE TABLET Take 81 mg by mouth once adela* ACETAMINOPHEN ORAL Take by mouth. 1000 mg bid f* Problem List As Of Date 11/26/2017 Noted Resolved Uncontrolled type 2 diabetes mellitus with comp*INVALID FOR* More... Hypertension goal BP (blood pressure) < 140/90 *INVALID FOR* More... HYPERLIPIDEMIA NEC/NOS [E78.5] INVALID FOR* More... DEPRESSIVE DISORDER NEC [F32.9] INVALID FOR* More... ED (erectile dysfunction) [N52.9] INVALID FOR* Lower urinary tract symptoms (LUTS) [R39.9] INVALID FOR* History of kidney stones [Z87.442] INVALID FOR* Microscopic hematuria [R31.29] INVALID FOR* Diabetic polyneuropathy associated with type 2 *INVALID FOR* More... Acute pain of right shoulder [M25.511] INVALID FOR* More... Nausea [R11.0] INVALID FOR* More... Vomiting [R11.10] INVALID FOR* More... Moderate episode of recurrent major depressive *INVALID FOR* Stage 3 chronic kidney disease [N18.3] INVALID FOR* Prescriptions ordered this encounter Disp Refills Start End INSULIN GLARGINE (U-100) 100 UNIT/ML* 20 P* 6 11/27/2017 Class: Print RX Route: SUBCUTANEOUS Sig: Inject 60 Units subcutaneously every evening. Medications Discontinued During This Encounter insulin glargine (LANTUS SOLOSTAR U-* 20 P* 6 11/26/2017 11/27/2017 Cmt: Please discard the rx for 75 units. Sig: Seventy five (60) units in the evening. Disc: Reason for discontinue is not on file. Encounter Status:Closed by CATALINA LALA LPN on 11/26/17 HI Observed: 11/26/2017 Status: COMPLETED Source: [place] 12:00 AM [facility] RE[facility] Patient Outreach (INTMWS) WILLIAMS BURGOS ([id number]) 1970 M Date Time Provider Department 11/26/17 CHELSEA SMITH During your visit today, we recorded the following information about you: Chelsea Cottrell RN 11/27/2017 10:57 AM Signed PRIMARY CARE COORDINATION IN OFFICE VISIT WITH PCP Patient has been identified by name and date of . PCP Assessment/Plan: Reviewed PCP plan with patient using [employer] Pt has promised to do better repeatedly with MD who is caring but frustrated with his not taking care of himself. He has restarted his Wellbutrin, taking meds regularly, including insulin. Following better diet. Had a BS in 50s during the night a couple days ago. Discussed bring meter next appt. Discussed doing diet/insulin/BS diary to correlate BSs. He has appt with LETTY Adams coming up. She saw him in hospital but will begin seeing him in office. His BS AFTER bkfst this AM was 206- 2 hr pp, 1pm BS 95 pc lunch (1 slice pizza, fruit cup); PCC Plan of Care: Patient concerns: Was really frightened by this hospitalization when they told him his kidneys were being damaged and was too HTNive. Has a 9yr old who wsa in the ER with his who dried so was so afraid of losing her dad. We discussed that at length. Patient goals: To eat healthier, be able to be more active with daughter- go for walks in evening as they did last summer and fall. I recc he consider volunteer work somewhere in town that he felt a passion for. PCC Interventions: -Contact [facility] for [facility] Program for pt. -Cancel scopes w/Dr. Kaufman for [place] -F/U Fri to see how he is doing w/Lantus decrease and change in BP med and swelling. Remind him to get BMP done next week. Next Office Visit: 02/19/2018 Plan For Next Call: Tomorrow with info about counseling Chelsea Andrade RN Ambulatory [employer] [facility] November 26, 2017 Allergies As of Date: 11/26/2017 (No Known Allergies) Date Reviewed: 11/26/2017 Reviewed by: Catalina Lala LPN - Fully Assessed Reason for Visit: [facility] [employer] [facility] Hospital Follow Up [3612] Prescriptions as of 11/26/2017 Sig: INSULIN GLARGINE (U-100) 100 * Inject 60 Units subcutaneousl* INSULIN ASPART U-100 100 UNI* Inject insulin three times da* FUROSEMIDE 20 MG TABLET Take 1 tablet by mouth once d* POTASSIUM CHLORIDE ER 10 MEQ * Take 1 capsule by mouth twice* ATENOLOL 100 MG TABLET Take 1 tablet by mouth once d* COMPOUNDED PRESCRIPTION KNEE HIGH COMPRESSION STOCKIN* GABAPENTIN 300 MG CAPSULE Take 1 capsule by mouth three* ATORVASTATIN 20 MG TABLET Take 1 tablet by mouth at bed* X INSULIN GLARGINE (U-100) 100 * Seventy five (60) units in th* RANITIDINE 300 MG TABLET Take 1 tablet by mouth daily * BUPROPION XL 300 MG 24 HR TAB Take 1 tablet by mouth once d* AMLODIPINE 5 MG TABLET Take 1 tablet by mouth once d* HYDROCHLOROTHIAZIDE 25 MG TAB* Take 1 tablet by mouth once d* LISINOPRIL 40 MG TABLET Take 1 tablet by mouth once d* ASPIRIN 81 MG CHEWABLE TABLET Take 81 mg by mouth once adela* ACETAMINOPHEN ORAL Take by mouth. 1000 mg bid f* Problem List As Of Date 11/26/2017 Noted Resolved Uncontrolled type 2 diabetes mellitus with comp*INVALID FOR* More... Hypertension goal BP (blood pressure) < 140/90 *INVALID FOR* More... HYPERLIPIDEMIA NEC/NOS [E78.5] INVALID FOR* More... DEPRESSIVE DISORDER NEC [F32.9] INVALID FOR* More... ED (erectile dysfunction) [N52.9] INVALID FOR* Lower urinary tract symptoms (LUTS) [R39.9] INVALID FOR* History of kidney stones [Z87.442] INVALID FOR* Microscopic hematuria [R31.29] INVALID FOR* Diabetic polyneuropathy associated with type 2 *INVALID FOR* More... Acute pain of right shoulder [M25.511] INVALID FOR* More... Nausea [R11.0] INVALID FOR* More... Vomiting [R11.10] INVALID FOR* More... Moderate episode of recurrent major depressive *INVALID FOR* Stage 3 chronic kidney disease [N18.3] INVALID FOR* Encounter Status:Closed by CHELSEA ANDRADE on 11/27/17 12 LEAD ELECTROCARDIOGRAM Observed: 11/22/2017 Status: F Source: [place] 1:55 PM [facility] HOSP[facility] REPOSITORY [facility] Cardiovascular Services [address] [place] [id number] 12 Lead EKG 11/20/17 0455 MR#: [id number] Acct: [id number] Name: WILLIAMS BURGOS Rep #: [id number] : 1970 46 From: Tylor Rudd MD Attending Dr: Tammie Fang Status: DIS IN Ordering Dr: Isamar Smith Date: 11/20/17 Location: ICU Sex: M C Admitted: 11/19/17 Test Reason : AM EKG Blood Pressure : / mmHG Vent. Rate : 089 BPM Atrial Rate : 089 BPM P-R Int : 168 ms QRS Dur : 100 ms QT Int : 398 ms P-R-T Axes : 028 -10 084 degrees QTc Int : 484 ms Sinus rhythm with Premature supraventricular complexes Otherwise normal ECG When compared with ECG of 23-APR-2014 08:31, Premature supraventricular complexes are now Present Confirmed by TYLOR RUDD MD ([id number]), features editor TOBY WATSON ([id number]) on 11/22/2017 1:55:11 PM Referred By: SARAH Confirmed By:TYLOR RUDD MD 11/22/17 1355 Date Tylor Rudd MD CC: Isamar Smith; Anderson Gaston MD Signed 12 LEAD ELECTROCARDIOGRAM Observed: 11/22/2017 Status: F Source: [place] 1:32 PM [facility] HOSPITAL REPOSITORY [facility] Cardiovascular Services [address] [address] 12 Lead EKG 11/19/17 1817 MR#: [id number] Acct: [id number] Name: WILLIAMS BURGOS Mery Rep #: [id number] : 1970 46 From: Tylor Rudd MD Attending Dr: Tammie Fang Status: DIS IN Ordering Dr: Jimenez Roman MD Date: 11/19/17 Location: ICU Sex: M Alberto Admitted: 11/19/17 Test Reason : HTN Blood Pressure : / mmHG Vent. Rate : 097 BPM Atrial Rate : 097 BPM P-R Int : 174 ms QRS Dur : 102 ms QT Int : 380 ms P-R-T Axes : 042 -12 064 degrees QTc Int : 482 ms Sinus rhythm with frequent Premature ventricular complexes Otherwise normal ECG Confirmed by TYLOR RUDD MD ([id number]), features editor TOBY WATSON ([id number]) on 11/22/2017 1:31:44 PM Referred By: KEESHA Confirmed By:TYLOR RUDD MD 11/22/17 1331 Date Tylor Rudd MD CC: Anderson Gaston MD; Jimenez Roman Signed PROGRESS Observed: 11/22/2017 Status: COMPLETED Source: [place] 11:45 AM [facility] REPOSIT[facility] O ID: [id number] Author: Chelsea Cottrell [facility] Service: (none) Author Type: Registered Nurse Type: Progress Notes Filed: 11/29/2017 9:50 AM Note Text: TRANSITION CARE MANAGEMENT (TCM) INITIAL CONTACT Provider Action/FYI: Pt will require a lot of intervention. Coming in on 11/26 for TCM- would recc PT for strengthening, carry out clerk and shelf stocker, psych. Initial contact with patient post discharge, spoke to Williams. Patient identified by name and . SUMMARY: -Pt discharged from [facility] on 11/21. Adm 11/19 -Follow up appointment on 11/26/[address] Gaston. -Medication review done with patient. -Admitted for: HTN crisis, uncontrolled DM, renal failure. CONCERNS: Pt sounds like he is not very compliant with meds although since D/C he says he is. Only took 30u Lantus last night since, per pt, that's what they gave him in hospital. He did, however, have a cheese steak 12 inch sub for dinner last night. His BS this morning was 146 per pr. He is drinking diet soft drinks. He wanted to go to [employer] for dinner but GF dissuaded him. Pt will be challenging in finding goals he is willing to attain regarding diet. We discussed eating more fruits and veggies. He then stated he had an orange with cereal breakfast (corn flakes,no sugar). He said he was having grilled chix and salad for lunch. NEW MEDICATIONS: None- adjusted doses only MEDS HELD/DISCONTINUED: None BRIEF HOSPITAL COURSE: 46 yo F w/PMH uncontrolled DM, non-compliance, morbid obesity,diabetic retinopathy R eye, severe HTN, presented to [facility] ED 11/19 with complaint of tinnitus, vision changes. Has edema legs, weight gain,exertional dyspnea. Has not been taking meds as directed nor following any controlled diet. BP -209/131. K-3.4, BUN/Cr 37/2.47. BS was 359, A1c 10.9. CT brain negative. He was admitted for HTN crisis. Given IV Hydralazine and NTG infusion. Lisinopril was D/C'd due to kidneys. ECHO- 65% EF. Mod concentric LVH, trivial R>L interatrial shunt. Diuresed 2Ls. Diet ed by carry out clerk and shelf stocker given, meds adjusted, Seen by Dr Montiel and kidney protein consistent with nephrotic syndrome. GFR=25.. [facility] for counseling. Hospitalist felt his self neglect related to his depression. CNPTOUTREACH Observed: 11/22/2017 Status: COMPLETED Source: [place] 12:00 AM [facility] REPOS[facility] Patient Outreach (INTMWS) WILLIAMS BURGOS ([id number]) 1970 M Date Time Provider Department 11/22/17 CHELSEA SMITH During your visit today, we recorded the following information about you: Chelsea Cottrell RN 11/29/2017 9:50 AM Signed TRANSITION CARE MANAGEMENT (TCM) INITIAL CONTACT Provider Action/FYI: Pt will require a lot of intervention. Coming in on 11/26 for TCM- would recc PT for strengthening, carry out clerk and shelf stocker, psych. Initial contact with patient post discharge, spoke to Williams. Patient identified by name and . SUMMARY: -Pt discharged from [facility] on 11/21. Adm 11/19 -Follow up appointment on 11/26/[address] Gaston. -Medication review done with patient. -Admitted for: HTN crisis, uncontrolled DM, renal failure. CONCERNS: Pt sounds like he is not very compliant with meds although since D/C he says he is. Only took 30u Lantus last night since, per pt, that's what they gave him in hospital. He did, however, have a cheese steak 12 inch sub for dinner last night. His BS this morning was 146 per pr. He is drinking diet soft drinks. He wanted to go to [place] for dinner but GF dissuaded him. Pt will be challenging in finding goals he is willing to attain regarding diet. We discussed eating more fruits and veggies. He then stated he had an orange with cereal breakfast (corn flakes,no sugar). He said he was having grilled chix and salad for lunch. NEW MEDICATIONS: None- adjusted doses only MEDS HELD/DISCONTINUED: None BRIEF HOSPITAL COURSE: 46 yo F w/PMH uncontrolled DM, non-compliance, morbid obesity,diabetic retinopathy R eye, severe HTN, presented to [facility] ED 11/19 with complaint of tinnitus, vision changes. Has edema legs, weight gain,exertional dyspnea. Has not been taking meds as directed nor following any controlled diet. BP -209/131. K-3.4, BUN/Cr 37/2.47. BS was 359, A1c 10.9. CT brain negative. He was admitted for HTN crisis. Given IV Hydralazine and NTG infusion. Lisinopril was D/C'd due to kidneys. ECHO- 65% EF. Mod concentric LVH, trivial RANDgt;L interatrial shunt. Diuresed 2Ls. Diet ed by carry out clerk and shelf stocker given, meds adjusted, Seen by Dr Montiel and kidney protein consistent with nephrotic syndrome. GFR=25.. [facility] for counseling. Hospitalist felt his self neglect related to his depression. ANDERSON GASTON MD 11/29/2017 9:50 AM Signed noted Allergies As of Date: 11/22/2017 (No Known Allergies) Date Reviewed: 11/19/2017 Reviewed by: Francheska Carrington Ma - Fully Assessed Visit Diagnoses:Essential hypertension [I10] Mixed hyperlipidemia [E78.2] Order(s):HEMOGLOBIN A1C (EXTERNAL) [7153482] Order #: [id number] Prescriptions as of 11/22/2017 Sig: X METOPROLOL TARTRATE 25 MG TAB* Take 1 tablet by mouth twice * RANITIDINE 300 MG TABLET Take 1 tablet by mouth daily * X INSULIN ASPART U-100 100 UNI* Inject insulin three times da* X INSULIN GLARGINE (U-100) 100 * Seventy five (75) units in th* BUPROPION XL 300 MG 24 HR TAB Take 1 tablet by mouth once d* X GABAPENTIN 600 MG TABLET Take 1 tablet by mouth three * AMLODIPINE 5 MG TABLET Take 1 tablet by mouth once d* HYDROCHLOROTHIAZIDE 25 MG TAB* Take 1 tablet by mouth once d* LISINOPRIL 40 MG TABLET Take 1 tablet by mouth once d* X ATORVASTATIN 20 MG TABLET Take 1 tablet by mouth at bed* X METFORMIN ER 500 MG TABLET,EX* Take one tablet by mouth twic* ASPIRIN 81 MG CHEWABLE TABLET Take 81 mg by mouth once adela* ACETAMINOPHEN ORAL Take by mouth. 1000 mg bid f* Problem List As Of Date 11/22/2017 Noted Resolved Uncontrolled type 2 diabetes mellitus with comp*INVALID FOR* More... Hypertension goal BP (blood pressure) < 140/90 *INVALID FOR* More... HYPERLIPIDEMIA NEC/NOS [E78.5] INVALID FOR* More... DEPRESSIVE DISORDER NEC [F32.9] INVALID FOR* More... ED (erectile dysfunction) [N52.9] INVALID FOR* Lower urinary tract symptoms (LUTS) [R39.9] INVALID FOR* History of kidney stones [Z87.442] INVALID FOR* Microscopic hematuria [R31.29] INVALID FOR* Diabetic polyneuropathy associated with type 2 *INVALID FOR* More... Acute pain of right shoulder [M25.511] INVALID FOR* More... Nausea [R11.0] INVALID FOR* More... Vomiting [R11.10] INVALID FOR* More... Prescriptions ordered this encounter Disp Refills Start End ATORVASTATIN 20 MG TABLET 30 t* 2 11/26/2017 11/26/2017 Route: ORAL Sig: Take 1 tablet by mouth at bedtime as needed. Medications Discontinued During This Encounter atorvastatin (LIPITOR) 20 mg tablet 30 t* 2 04/26/2016 11/26/2017 Route: ORAL Sig: Take 1 tablet by mouth at bedtime as needed. Disc: Reason for discontinue is not on file. Follow-up and Disposition History Recorded Encounter Status:Closed by CHELSEA ANDRADE on 11/29/17 CONSULTATION Observed: 11/21/2017 Status: F Source: [place] 5:00 PM [facility] Medical Records Department [address] [place] [address] Consultation 11/21/17 0857 MR#: [id number] Acct: [id number] Name: WILLIAMS BURGOS Rep #: [id number] : 1970 46 From: Loida Montiel DO PCP: Anderson Gaston MD Status: DIS IN Y Location: ICU ICU02-1 Consultation - Renal 11/21/17 PCP/ Referring MD: Requesting physician: Tammie Fang Primary care physician: Anderson Gaston - History of Present Illness History of Present Illness: The patient is a 46 y/o M w/ history of poorly controlled hypertension, hyperlipidemia, uncontrolled diabetes mellitus type 2 with 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 He presents to the [facility] ED on 11/19/17 with an elevated blood pressure 200/120 and high blood sugars. He had trouble with his hearing in his left ear with tinnitus. He had increased leg edema. He was instructed by his doctor to go to the emergency room. He has very little knowledge of low sugar and low sodium diet. Dietary was consulted. He was last seen by his PCP on November 12. Creatinine on admission was 2.47 increased to 2.88. He was given IV Lasix 3 times a day for her extremity edema and mild congestion on chest x-ray and small pleural effusion. Echocardiogram showed preserved cardiac function with LVH. He denied any chest pain. He has some shortness of breath that has improved. He has a history of sleep apnea but does not wear a mask at night. His urine protein creatinine ratio showed 3.86 g protein. He has been on lisinopril at home and continued in the hospital. - Allergies Allergies: Allergies No Known Allergies Allergy (Verified 11/19/17 17:48) - Current Medications Current Medications: Current Medications Acetaminophen (Tylenol) 650 mg PO Q6H PRN PRN PRN Reason: Mild Pain (scale 0-3)/T>100.7 Al Hydroxide/Mg Hydroxide (Mylanta Ii) 30 ml PO Q6H PRN PRN PRN Reason: Gastric burning Aspirin (Ecotrin) 81 mg PO DAILY@0800 [facility] Last Admin: 11/21/17 08:19 Dose: 81 mg Atorvastatin Calcium (Lipitor) 40 mg PO DAILY@2200 [facility] Last Admin: 11/20/17 11:51 Dose: 40 mg Bupropion HCl (Wellbutrin Xl) 300 mg PO DAILY [facility] [facility] Last Admin: 11/21/17 08:18 Dose: 300 mg Dextrose (D50w Syringe) 0 gm IV X1 PRN; Protocol PRN Reason: Hypoglycemia Furosemide (Lasix) 40 mg PO DAILY [facility] Last Admin: 11/21/17 08:26 Dose: 40 mg Glucagon () 1 mg IM .X1 PRN PRN Reason: Hypoglycemia Heparin Sodium (Porcine) (Heparin Na) 5,000 unit SC BID [facility] Last Admin: 11/21/17 08:21 Dose: 5,000 units Hydralazine HCl (Apresoline) 20 mg IV Q4H PRN PRN PRN Reason: SBP > 160 Last Admin: 11/20/17 13:39 Dose: 20 mg Sodium Chloride () 250 mls @ 15 mls/hr IV .[id number] PRN PRN Reason: SALINE FLUSH Insulin Aspart (Novolog Flexpen (Bkc)) 0 units SC ACHS [facility] PRN Reason: Protocol Last Admin: 11/21/17 08:17 Dose: Not Given Insulin Aspart (Novolog Flexpen (Bkc)) 6 units SC TIDAC [facility] Last Admin: 11/21/17 08:17 Dose: 6 u Insulin Detemir (Levemir (Bkc)) 35 units SC BID@1100,2200 [facility] Last Admin: 11/20/17 21:18 Dose: 35 u Lisinopril (Zestril) 20 mg PO DAILY [facility] Last Admin: 11/21/17 08:20 Dose: 20 mg Magnesium Hydroxide (Milk Of Magnesia) 30 ml PO DAILY PRN PRN PRN Reason: Constipation Metoprolol Tartrate (Lopressor (Beta Elizabeth)) 50 mg PO BID [facility] Last Admin: 11/21/17 08:19 Dose: 50 mg Nutritional Formula (Lactose Free) (Glucerna Shake) 120 ml PO TIDCM [facility] Last Admin: 11/21/17 08:21 Dose: Not Given Ondansetron HCl (Zofran) 4 mg IV Q8H PRN PRN PRN Reason: NAUSEA Last Admin: 11/20/17 18:15 Dose: 4 mg Promethazine HCl (Phenergan (Ll)) 12.5 mg IV Q6H PRN PRN PRN Reason: NAUSEA/VOMITING Sodium Chloride () 5 - 30 ml IV UD PRN PRN Reason: SALINE FLUSH Last Admin: 11/21/17 05:42 Dose: 20 ml - Past Medical History Past Medical History (Chronic Problems): Chronic Problems Noncompliance (Chronic) Diabetic neuropathy (Chronic) Diabetic nephropathy (Chronic) Diabetic retinopathy (Chronic) HTN (hypertension) (Chronic) HLD (hyperlipidemia) (Chronic) Blind left eye (Chronic) Diabetes mellitus type II, uncontrolled (Chronic) Obesity (BMI 30.0-34.9) (Chronic) Anxiety and depression (Chronic) GERD (gastroesophageal reflux disease) (Chronic) Chewing tobacco nicotine dependence (Chronic) CKD (chronic kidney disease) stage 3, GFR 30-59 ml/min (Chronic) Leg edema, right (Chronic) History of acute myocardial infarction (Chronic) - Past Surgical History Surgical History: - - Cholecystectomy, left retinal tear repair attempts, right eye laser surgery. - Social History Marital Status: Smoking Status: Never smoker Alcohol: Rare Drugs: None - Family History Maternal History Items: Heart Disease Paternal History Items: Cancer - Father w/ Colon CA. Sibling History Items: Diabetes - sister, brother who passed, no kidney disease Review of Systems Constitutional: Denies: Anorexia, Chills, Fever, Weakness, Fatigue Eyes: Reports: Blurred vision - blind left eye, retinal tear, retinopathy HEENT: Reports: Head Aches Cardiovascular: Reports: Edema. Denies: Chest Pain Respiratory: Reports: Shortness of Breath, - - sleep apnea, not on CPAP. Denies: Cough Gastrointestinal: Denies: Abdominal Pain, Diarrhea, Nausea, Vomiting Genitourinary: Denies: Dysuria, Frequency, Hematuria Musculoskeletal: Reports: - - leg swelling. Denies: Arm Pain, Back Pain Skin: Denies: Rash Neurological: Denies: Balance problems Psychiatric: Denies: Anxiety, Depression Hematologic/ Lymphatic: Reports: Anemia. Denies: Hx of blood clot Patient Problems: Active and Suspected Problems Hypokalemia (Acute) Diastolic congestive heart failure (Acute) - Physical Exam General: Alert, Oriented x3, Cooperative, No apparent distress HEENT: PERRLA, EOMI Oral: Moist Mucosa Neck: Supple, No JVD Lungs: Diminished, - Cardiovascular: Regular rate Abdomen: Bowel Sounds Present, Soft, Non Tender, Non-Distended, Obese Extremities: Edema - BLE 1+ Musculoskeletal: No Muscle Wasting Neurological: Cranial nerves II-XII grossly intact Psych/Mental Status: Normal Affect, Appropriate, Alert and oriented to time, place, person, mood and affect Vital Signs Temp Pulse Resp BP Pulse Ox 98.8 F 86 22 H 142/65 H 92 11/21/17 04:00 11/21/17 08:19 11/21/17 07:58 11/21/17 07:58 11/21/17 07:58 Oxygen Flow Rate (L/min) 2 Oxygen Delivery Method Room Air Weight: 97 kg Body Mass Index (BMI) 32.9 Intake and Output for Last 24 Hours Intake Total 250 / 250 893 / 893 200 / 200 Output Total 950 / 950 1600 / 1600 800 / 800 Balance -700 / -700 -707 / -707 -600 / -600 Laboratory Tests Past 24 Hrs WBC RBC Hgb Hct MCV MCH MCHC RDW WBC 8.2 RBC 3.89 L Hgb 11.6 L POC Glucose POC Glucose 98 162 H 147 H POC Glucose 310 H Clinical Impression(s) from Imaging Studies Brain CT 11/19/17 18:03 IMPRESSION: 1. Chronic involutional changes of the brain. 2. No CT evidence of acute intracranial hemorrhage. Electronically Signed: Neli Watson MD at 19:08 EDT , Service support , Chest X-Ray 11/19/17 18:30 IMPRESSION: Mild pulmonary congestion. Differential considerations include acute exacerbation of reactive airway disease or viral infection. Electronically Signed: Neli Watson MD at 19:19 EDT , Service support , Abdomen/Pelvis CT 11/20/17 10:40 IMPRESSION: 1. No CT evidence of acute intra-abdominal disease. 2. Small pericardial effusion. Electronically Signed: Neli Watson MD at 11:29 EDT , Service support , Assessment/Plan Active and Suspected Problems Hypokalemia (Acute) Diastolic congestive heart failure (Acute) 1. ILDA on CKD Stage 3 with baseline creatinine 1.8 in May 2017, now at 2.4-1.6 with nephrotic proteinuria 3.8g/gCr on UPCR. He has anasarca, uncontrolled hypertension and poorly controlled diabetes. Discussed with patient risk of progressive renal failure requiring dialysis in the near future if he continues with his noncompliant behavior. FH significant for diabetes in his siblings, one from complications of diabetes. Will continue with lasix and lisinopril. Continue with low sodium diet, diabetic carb control. 2. Hypertensive urgency due to noncompliance. 3. Uncontrolled diabetes on insulin. A1C elevated at 10.5 with history of neuropathy, nephropathy, retinopathy, blind left eye 4. Morbid obesity 5. Anemia hgb 11.6g 6. Follow up in office. Will need dialysis education as outpt. 11/21/17 1700 <Electronically signed by Loida Montiel DO> Date Loida Montiel DO Cosigner Signature (if applicable): Date CC: Anderson Gaston MD; Loida Montiel DO; Joao Hayes D.O. Signed DISCHARGE SUMMARY Observed: 11/21/2017 Status: F Source: [facility] 9:50 AM [facility] REPOSITORY [facility] Records Department [address] [place] [address] Discharge Summary 11/21/17 0923 MR#: [id number] Acct: [id number] Name: WILLIAMS BURGOS Rep #: [id number] : 1970 46 From: Anitha Fang DO PCP: Anderson Gaston MD Status: ADM IN Y Location: ICU ICU02-1 Discharge Date and Diagnosis - Problem List Patient Problems: Active and Suspected Problems Hypokalemia (Acute) Diastolic congestive heart failure (Acute) Hypertensive emergency (Acute) ILDA (acute kidney injury) (Acute) Date of Admission: 11/19/17 Date of Discharge: 11/21/17 - Primary Discharge Diagnosis Active and Suspected Problems Hypertensive emergency (Acute) Diastolic congestive heart failure (Acute) Hypokalemia (Acute) ILDA (acute kidney injury) on CRF stage III-IV Hypokalemia - Secondary Discharge Diagnosis Chronic Problems Noncompliance (Chronic) with diet and medication Diabetic neuropathy (Chronic) Diabetic nephropathy (Chronic) Diabetic retinopathy (Chronic) HTN (hypertension) (Chronic) HLD (hyperlipidemia) (Chronic) Blind left eye (Chronic) Diabetes mellitus type II, uncontrolled (Chronic) Obesity (BMI 30.0-34.9) (Chronic) Anxiety and depression (Chronic) GERD (gastroesophageal reflux disease) (Chronic) Chewing tobacco nicotine dependence (Chronic) CKD (chronic kidney disease) stage 3, GFR 30-59 ml/min (Chronic) Leg edema, right (Chronic) History of acute myocardial infarction (Chronic) Nephrotic syndrome with greater than 3.6 g of protein in 24 hours Hospital Course and Treatment Imaging Results: Clinical Impression(s) from Imaging Studies Brain CT 11/19/17 18:03 IMPRESSION: 1. Chronic involutional changes of the brain. 2. No CT evidence of acute intracranial hemorrhage. Electronically Signed: Neli Watson MD at 19:08 EDT , Service support , Chest X-Ray 11/19/17 18:30 IMPRESSION: Mild pulmonary congestion. Differential considerations include acute exacerbation of reactive airway disease or viral infection. Electronically Signed: Neli Watson MD at 19:19 EDT , Service support , Abdomen/Pelvis CT 11/20/17 10:40 IMPRESSION: 1. No CT evidence of acute intra-abdominal disease. 2. Small pericardial effusion. Electronically Signed: Neli Watson MD at 11:29 EDT , Service support , Laboratory Results - last 24 hr WBC RBC Hgb Hct MCV MCH MCHC RDW RDW Differential WBC RBC Hgb Hct MCV MCH MCHC RDW RDW Differential Plt Count MPV Sodium Potassium WBC 8.2 RBC 3.89 L Hgb 11.6 L Hct 32.8 L WBC RBC Hgb Hct MCV MCH Dr. Loida Montiel-nephrology Dr. Joao Hayes-operations consultant Operations: None Procedures: 2-D Echocardiogram Summary of Care Provided: Patient is a 46-year-old male with a past medical history of poorly controlled diabetes mellitus type 2, noncompliance with diet and medication, morbid obesity, diabetic retinopathy right eye with history of laser therapy, hypertension, hyperlipidemia, blindness in his left eye due to a retinal tear, diabetic peripheral polyneuropathy, anxiety/depression, GERD and nicotine dependence with chewing tobacco who presented to the ED at [facility] on 11/19/17 with c/o headache, vision changes, tinnitus which had been intermittent for the past week. Other complaints included increased edema of his legs, weight gain, exertional dyspnea and orthopnea. He admitted to not taking any of his medications and not following his diabetic diet. Vital signs at presentation to the emergency room were temperature 98.6, pulse rate 100, blood pressure 209/131, respiratory rate 16 and he was 99% saturated on room air. CBC was remarkable for a hemoglobin of 10.3 with normochromic normocytic indices and a normal RDW. Potassium was low at 3.4 and the BUN was 37 with a creatinine of 2.47 and an estimated creatinine clearance of 35. Random blood sugar was 359 and hemoglobin A1c was 10.5. Troponin was 0.03. Chest x-ray showed mild increase in interstitial markings. BNP was not checked. CT brain showed no evidence of acute intracranial hemorrhage or ischemia. He was admitted to the intensive care unit with a diagnosis of hypertensive emergency. He was treated with IV Hydralazine and a NTG infusion to decrease preload. Lisinopril was discontinued because of the renal failure. His other oral medications were restarted. Serial cardiac enzymes were negative. ECHO was obtained and showed a 65% ejection fraction with moderate concentric left ventricular hypertrophy, trivial right to left interatrial shunt, small anterior pericardial effusion. Unable to estimate RV systolic pressure due to technically difficult study. He was diuresed and his fluid balance was -2007 cc at discharge. His medications were adjusted and prior to discharge the BP ranged from 132/69- 152/91. Amlodipine 5 mg was restarted. Diet education was provided by the carry out clerk and shelf stocker. Cessation of chewing tobacco was encouraged. He was seen by Dr. Montiel prior to DC and she calculated his urine Protein to be 3.68 GM in 24H. This is consistent with nephrotic S. Likely due to uncontrolled DM and HTN. GFR at discharge was 25. At the time of DC the lungs were CTA and the heart had a RRR with no gallop and no rub. Pitting edema in the legs was improved...he will likely always have some edema due to Nephrotic S. and third spacing of fluids. I encouraged him to start wearing compression stockings. He has an appt with the diabetic CVIR TECH this coming on 11/26. He will follow up with Dr. Gaston in 7-[address] Montiel in 2 weeks. I spoke to him and his when she came to take him home. I have encouraged them to follow up with behavioral Health for counselling because I feel his depression is contributing to self neglect and non-compliance. This note was generated with [employer] dictation software. It may contain incorrect words, spelling, and punctuation that were not noted in checking the note before signing. Discharge Activity: Return to Normal Activity Call your doctor if you observe: Fever of 101 or Higher, Shortness of breath, Dizziness, Fainting spells, Chest pain, - - weight gain of more than 5 lbs in 1 week Home Medications: Medications to take at Discharge Gabapentin [Neurontin] 600 mg PO TIDCM 07/15/13 Insulin Glargine [Lantus SoloStar Pen] 75 units SC QHS 07/15/13 Amlodipine [Norvasc] 5 mg PO DAILY 05/06/17 Bupropion HCl [Wellbutrin Xl] 300 mg PO DAILY 05/06/17 Aspirin 81 mg PO DAILY 11/19/17 Atorvastatin Calcium [Lipitor] 20 mg PO DAILY 11/19/17 Ranitidine [Zantac] 300 mg PO DAILY 11/19/17 Insulin Aspart [Novolog Flexpen] 15 units SC TIDCM #15 pen 11/21/17 Lisinopril [Zestril] 20 mg PO DAILY #30 tab 11/21/17 Metoprolol Tartrate [Lopressor (beta elizabeth)] 50 mg PO BID #60 tab 11/21/17 Following Prescrptions Were Given to Patient: Lisinopril [Zestril] 20 mg PO DAILY #30 tab Metoprolol Tartrate [Lopressor (beta elizabeth)] 50 mg PO BID #60 tab Primary Care Physician: Anderson Gaston MD [Primary Care Provider] - Please follow up with your Primary Care Physician in: 7-10 days Please Follow Up With: Norah Adams NP-C When: Saturday Please Follow Up With: Loida Montiel DO When: 2 weeks Patient Instructions: Controlling High Blood Pressure, Treatment Options for Kidney Failure, Discharge Instructions for Chronic Kidney Disease Disposition: Home Minutes spent on discharge:: 40 Patient Condition:: Stable Meaningful Use Info Meaningful Use Diagnoses (Choose all that apply): CHF - CHF TOM/ARB ordered at discharge?: Yes Documented LVEF (%): 65 Code Visit Inpatient E AND M: [id number] Disch Hosp 11/21/17 0950 <Electronically signed by Anitha Fang DO> Date Anitha Fang DO Cosigner Signature (if applicable): Date CC: Norah Adams NP; Tammie Fang; Anderson Gaston MD; Loida Montiel DO Signed DISCHARGE INSTRUCTION Observed: 11/21/2017 Status: F Source: [facility] 9:23 AM [facility] REPOSITORY [facility] Medical Records Department [address] [place] [address] Instructions for Home/Discharge Instructions 11/21/17 0735 MR#: [id number] Acct: [id number] Name: WILLIAMS BURGOS Rep #: [id number] : 1970 46 From: Anitha Fang DO PCP: Anderson Gaston MD Status: ADM IN - Discharge Diagnoses Current Active Problems: Current Active and Chronic Problems HTN (hypertension) (Chronic) HLD (hyperlipidemia) (Chronic) Blind left eye (Chronic) Diabetes mellitus type II, uncontrolled (Chronic) Neuropathy (Chronic) Obesity (BMI 30.0-34.9) (Chronic) Anxiety and depression (Chronic) GERD (gastroesophageal reflux disease) (Chronic) Chewing tobacco nicotine dependence (Chronic) Hypertensive emergency (Acute) CHF (congestive heart failure) (Acute) ILDA (acute kidney injury) (Acute) CKD (chronic kidney disease) stage 3, GFR 30-59 ml/min (Chronic) You will use the following diet at home:: Cardiac - low fat and low salt......No more than 2 Grams of salt daily Your food should be the consistency of: Regular Your liquids should be the consistency of: Regular/Thin Discharge Activity: Return to Normal Activity Call your doctor if you observe: Fever of 101 or Higher, Shortness of breath, Dizziness, Fainting spells, Chest pain, - - weight gain of more than 5 lbs in 1 week Instructions: Controlling High Blood Pressure, Treatment Options for Kidney Failure, Discharge Instructions for Chronic Kidney Disease Additional Instructions: Your kidneys are failing because your BP and diabetes and cholesterol are NOT controlled. If this continues you will soon need dialysis. You already have blindness and kidney disease and neuropathy. You are at VERY HIGH risk for strokes and heart attacks if you continue to ignore your BP, diabetes and high cholesterol. Not taking your medications with your multiple medical problems is Suicidal in my opinion. If you want to live to see your children grow up you need to get control of the diabetes and blood pressure and cholesterol and stop chewing tobacco. In order to control diabetes you MUST stick to a low carb diet. You should be taking the novolog 15 units with ALL meals.....that means 3 times a day. I think it would be an excellent idea to follow up in the diabetic clinic that the dieticians run at the hospital.....you will need a referral from your PCP. There have been some changes to your medications......please adhere to the list of medications given to you at discharge. I will be sending a copy of the medications list and a discharge summary to Dr. Gaston. An appt has been made for you to follow up with a nurse practitioner who specializes in diabetes. I recommend you keep this appt so that we can get your blood sugars undercontrol so hopefully things won't continue to get worse. Pending Tests on Discharge: none Allergies/Adverse Reactions: Allergies No Known Allergies Allergy (Verified 11/19/17 17:48) Medications to take at Discharge Gabapentin [Neurontin] 600 mg PO TIDCM 07/15/13 Insulin Glargine [Lantus SoloStar Pen] 75 units SC QHS 07/15/13 Amlodipine [Norvasc] 5 mg PO DAILY 05/06/17 Bupropion HCl [Wellbutrin Xl] 300 mg PO DAILY 05/06/17 Aspirin 81 mg PO DAILY 11/19/17 Atorvastatin Calcium [Lipitor] 20 mg PO DAILY 11/19/17 Ranitidine [Zantac] 300 mg PO DAILY 11/19/17 Insulin Aspart [Novolog Flexpen] 15 units SC TIDCM #15 pen 11/21/17 Lisinopril [Zestril] 20 mg PO DAILY #30 tab 11/21/17 Metoprolol Tartrate [Lopressor (beta elizabeth)] 50 mg PO BID #60 tab 11/21/17 The following prescriptions were given: Lisinopril [Zestril] 20 mg PO DAILY #30 tab Metoprolol Tartrate [Lopressor (beta elizabeth)] 50 mg PO BID #60 tab Primary Care Physician: Anderson Gaston MD [Primary Care Provider] - Please follow up with your Primary Care Physician in: 7-10 days Please Follow Up With: Norah Adams NP-C When: Saturday Please Follow Up With: Loida Montiel DO When: 2 weeks Proposed Discharge Date: 11/21/17 11/21/17922 <Electronically signed by Anitha Fang DO> Date M Kristine Fang CC: Norah Adams CVIR TECH; Anderson Gaston MD; Loida Montiel DO; Joao Hayes D.O. BEDSIDE GLUCOSE Collected: 11/21/2017 Status: F Source: [facility] 7:39 AM [facility] REPOSITORY TYPE CODE TESTS RESULT OUT OF RANGE REFERENCE UNITS LAB L501.080 70-110 mg/dL Normal BEDSIDE GLU 98 Result Comment: MANAGEMENT OF PATIENT CARE PER NURSING PROTOCOL Performed By: #### L501.080 #### [facility] Point of Care [address] [place] [address] BASIC METABOLIC Collected: 11/21/2017 Status: F Source: [facility] PROFILE (BMP) 4:30 AM [facility] REPOSITORY TYPE CODE TESTS RESULT OUT OF RANGE REFERENCE UNITS LAB L501.0100 74-106 mg/dL Normal GLU 88 Result Comment: Please note revised GLUCOSE reference range effective 2017. LAB L501.1000 7-18 mg/dL High BUN 43 LAB L501.1100 0.70-1.30 mg/dL High CREAT,SERUM 2.88 Result Comment: The validity of the calculated GFR AND GFRAA in patients over 70 years has not been determined. Clinical correlation is essential. LAB L501.1110 >60 mL/min Low EST GFR 25 Result Comment: Non- GFR Calc LAB L501.1115 >60 mL/min Low EST GFR - AA 30 Result Comment: GFR Calc LAB L501.1255 ml/min Normal Estimated CRCL 30.35 LAB L501.1300 10-20 RATIO Normal BUN/CRE 14.9 LAB L501.2200 8.5-10 mg/dL Low .1 CA 8.1 LAB L501.5300 136-14 mmol/L Normal 5 NA 142 LAB L501.5600 3.5-5. mmol/L Low 1 K 3.4 LAB L501.5900 98-107 mmol/L Normal CL 107 LAB L501.6100 21.0-3 mmol/L Normal 2.0 CO2 28.0 LAB L501.6200 5-15 Normal GAP 7 Performed By: #### L500.2500, L501.2300, L501.5200 #### [facility] [address] [place], [address] PHOSPHORUS Collected: 11/21/2017 Status: F Source: [facility] 4:30 AM [facility] REPOSITORY TYPE CODE TESTS RESULT OUT OF RANGE REFERENCE UNITS LAB L501.2300 2.5-4.9 mg/dL Normal PHOS 3.7 Performed By: #### L500.2500, L501.2300, L501.5200 #### [facility] [address], [address] MAGNESIUM Collected: 11/21/2017 Status: F Source: [facility] 4:30 AM [facility] REPOSITORY TYPE CODE TESTS RESULT OUT OF RANGE REFERENCE UNITS LAB L501.5200 1.6-2.6 mg/dL Normal MG 1.8 Result Comment: Please note revised Magnesium reference range effective 2017. Performed By: #### L500.2500, L501.2300, L501.5200 #### [facility] [address] [place], [address] CBC-COMPLETE BLOOD CNT Collected: 11/21/2017 Status: F Source: [facility] NO DIFF 4:30 AM [facility] REPOSITORY TYPE CODE TESTS RESULT OUT OF RANGE REFERENCE UNITS LAB L100.1000 4.4-11.0 K/mm3 Normal WBC 8.2 LAB L100.1200 4.6-6.2 M/mm3 Low RBC 3.89 LAB L100.1300 13.0-16.5 g/dl Low HGB 11.6 LAB L100.1400 40-54 % Low HCT 32.8 LAB L100.1500 80-94 fL Normal MCV 84.3 LAB L100.1600 27.0-32.0 pg Normal MCH 29.8 LAB L100.1700 32-36 g/gl Normal MCHC 35.4 LAB L100.1810 11.6-14.6 % Normal RDW CV 12.8 LAB L100.1820 35.1-43.9 fl Normal RDW SD 38.5 LAB L100.1900 150-450 K/mm3 Normal PLT 233 LAB L100.2000 6.2-12.0 fl Normal MPV 9.4 Performed By: #### L100.0500 #### [facility] [address] [place], [address] CREATININE, URINE Collected: 11/21/2017 Status: F Source: [facility] (RANDOM) 1:30 AM [facility] REPOSITORY TYPE CODE TESTS RESULT OUT OF RANGE REFERENCE UNITS LAB L501.1200 NO RANGE EST. mg/dL Normal UR CREAT 91.40 Performed By: #### L501.1200 #### [facility] [address] [place], [address] PROTEIN, URINE Collected: 11/21/2017 Status: F Source: [facility] ([facility]AND[facility]) 1:30 AM [facility] REPOSITORY TYPE CODE TESTS RESULT OUT OF RANGE REFERENCE UNITS LAB L501.1930 <11.9 mg/dL High 352.6 PROTEIN,UR.R AN. Performed By: #### L501.1930 #### [facility] [address] [place], [address] BEDSIDE GLUCOSE Collected: 11/20/2017 Status: F Source: [facility] 9:17 PM [facility] TYPE CODE TESTS RESULT OUT OF REFERENCE UNITS RANGE LAB L501.080 70-110 mg/dL High BEDSIDE GLU 162 Result Comment: MANAGEMENT OF PATIENT CARE PER NURSING PROTOCOL Performed By: #### L501.080 #### [facility] Point of Care [address] [address] BEDSIDE GLUCOSE Collected: 11/20/2017 Status: F Source: [facility] 5:49 PM [facility] TYPE CODE TESTS RESULT OUT OF REFERENCE UNITS RANGE LAB L501.080 70-110 mg/dL High BEDSIDE GLU 147 Result Comment: MANAGEMENT OF PATIENT CARE PER NURSING PROTOCOL Performed By: #### L501.080 #### [facility] Point of Care [address] [address] BASIC METABOLIC Collected: 11/20/2017 Status: F Source: [facility] PROFILE (BMP) 2:35 PM [facility] TYPE CODE TESTS RESULT OUT OF RANGE REFERENCE UNITS LAB L501.0100 74-106 mg/dL High GLU 159 Result Comment: Fasting Glucose result greater than or equal to 126 mg/dL suggests DIABETES MELLITUS per A.D.A. criteria. Please note revised GLUCOSE reference range effective 2017. LAB L501.1000 7-18 mg/dL High BUN 41 LAB L501.1100 0.70-1.30 mg/dL High CREAT,SERUM 2.60 Result Comment: The validity of the calculated GFR AND GFRAA in patients over 70 years has not been determined. Clinical correlation is essential. LAB L501.1110 >60 mL/min Low EST GFR 28 Result Comment: Non- GFR Calc LAB L501.1115 >60 mL/min Low EST GFR - AA 34 Result Comment: GFR Calc LAB L501.1255 ml/min Normal Estimated CRCL 33.62 LAB L501.1300 10-20 RATIO Normal BUN/CRE 15.8 LAB L501.2200 8.5-10 mg/dL Low .1 CA 8.0 LAB L501.5300 136-14 mmol/L Normal 5 NA 143 LAB L501.5600 3.5-5. mmol/L Normal 1 K 3.8 LAB L501.5900 98-107 mmol/L High CL 108 LAB L501.6100 21.0-3 mmol/L Normal 2.0 CO2 24.0 LAB L501.6200 5-15 Normal GAP 11 Performed By: #### L500.2500, L500.3600 #### [facility] [address] [facility]. [place], [place], [id number] RENAL PROFILE Collected: 11/20/2017 Status: F Source: [facility] 2:35 PM [facility] REPOSITORY TYPE CODE TESTS RESULT OUT OF RANGE REFERENCE UNITS LAB L501.1800 3.2-5.0 g/dL Low ALB 2.3 LAB L501.2300 2.5-4.9 mg/dL Normal PHOS 3.2 Performed By: #### L500.2500, L500.3600 #### [facility] [address] [place], [address] URINALYSIS, ROUTINE Collected: 11/20/2017 Status: F Source: [facility] (DIPSTICK) 1:50 PM [facility] REPOSITORY Order Comment: How was Urine Obtained? [employer] TO SPECIFY TYPE CODE TESTS RESULT OUT OF RANGE REFERENCE UNITS LAB L400.3000 Yellow COLOR Normal Yellow LAB L400.3050 Clear Normal CLARITY Sl. Cloudy LAB L400.3200 Normal mg/dl High GLUCOSE, UR 250 LAB L400.3300 Negative mg/dL Normal BILIRUBIN URINE Negative LAB L400.3400 Negative mg/dl Normal KETONE UR Negative LAB L400.3465 1.002-1.030 Normal SP.GR. DIPSTX 1.020 LAB L400.3550 5.0 - 8.0 pH UR Normal 5.0 LAB L400.3600 Negative mg/dl High PROT DIPSTX 500 LAB L400.3700 Normal mg/dl Normal UROBILI Normal LAB L400.3750 Negative Normal NITRITE UR Negative LAB L400.3780 Negative /ul High 25 OCCULT BLOOD-UR LAB L400.3800 Negative /ul LEUK Normal ESTERASE Negative Performed By: #### L400.2010 #### [facility] [address] [facility] [place], [address] BEDSIDE GLUCOSE Collected: 11/20/2017 Status: F Source: [facility] 11:26 AM [facility] REPOSITORY TYPE CODE TESTS RESULT OUT OF REFERENCE UNITS RANGE LAB L501.080 70-110 mg/dL High BEDSIDE GLU 310 Result Comment: MANAGEMENT OF PATIENT CARE PER NURSING PROTOCOL Performed By: #### L501.080 #### [facility] Point of Care [address] [facility] [place] [address] ABDOMEN/PELVIS WITHOUT Observed: 11/20/2017 Status: F Source: [facility] CONT 10:41 AM [facility] REPOSITORY [facility] Imaging Services [address] [place] [address] Abdomen/Pelvis without Cont MR#: [id number] Acct: [id number] Name: WILLIAMS BURGOS Rep #: [id number] : 1970 M 46 From: Neli Watson MD PCP: Anderson Gaston MD Status: ADM IN Study: Abdomen/Pelvis without Cont Date of Exam: 11/20/17 Exam# [id number] Ordering Dr: Anitha Fang DO STUDY: CT ABDOMEN AND PELVIS WITHOUT CONTRAST REASON FOR EXAM: Male, 46 years old. Acute renal insufficiency superimposed on chronic renal disease. RADIATION DOSAGE (If Supplied By Facility): CTDIvol = ( 11.05 ) mGy, DLP = ( 568.87 ) mGycm TECHNIQUE: Transaxial images were obtained from the dome of the diaphragm to the symphysis pubis without oral contrast, and without intravenous contrast. Sagittal and coronal images were reconstructed. Individualized dose optimization techniques were used for this CT. COMPARISON: Prior comparison studies are not available for review at this time. FINDINGS: There is heterogeneous groundglass attenuation the lung bases probably related to dependent atelectasis. The visualized heart is enlarged. There is a small pericardial effusion measuring approximately 8.4 mm. Normal liver. There are surgical clips in the gallbladder fossa consistent with a prior cholecystectomy. Normal spleen. Normal pancreas. Normal bilateral adrenal glands. Normal right kidney. Normal left kidney. There is a small hiatal hernia. There is no evidence for dilated bowel, ascites or pneumoperitoneum. The small bowel has a grossly normal appearance. Stool is visible throughout the colon with scattered diverticula. There is non-visualization of the appendix. Normal abdominal aorta. Normal inferior vena cava. There is a left-sided retroaortic vein. Urinary bladder is very distended. Normal visualized prostate gland. Normal abdominal wall. Normal osseous structures. CT/Abdomen/Pelvis without Cont IMPRESSION: 1. No CT evidence of acute intra-abdominal disease. 2. Small pericardial effusion. Electronically Signed: Neli Watson MD at 11:29 EDT , Service support , CC: Tammie Fang; Anderson Gaston MD Hand Packager: Signed ECHOCARDIOGRAM COMPLETE Observed: 11/20/2017 Status: F Source: [facility] 10:33 AM [facility] REPOSITORY [facility] Cardiovascular Services [address] [place] [address] Echo Complete 11/20/17 0638 MR#: [id number] Acct: [id number] Name: WILLIAMS BURGOS Rep #: [id number] : 1970 46 From: Mayo Miguel MD Attending Dr: Tammie Fang Status: ADM IN Ordering Dr: Isamar Smith Date: 11/20/17 Location: ICU Sex: M C Admitted: 11/19/17 Reason For Study: CHF Procedure This was a 2D Doppler, Color Flow transthoracic echocardiogram. Exam performed portable in ICU/CCU. Left Ventricle Moderate concentric left ventricular hypertrophy. The estimated ejection fraction is 65 %. No regional wall motion abnormalities noted. Right Ventricle Normal size and thickness. Normal systolic function. Atria Normal left atrium. Normal right atrium. Saline contrast study demonstrates trivial right to left interatrial shunt. Hypermobile atrial septum. Mitral Valve The mitral valve is structurally normal. No prolapse or stenosis seen. Tricuspid Valve Normal tricuspid valve. Unable to estimate RV systolic pressure/pulmonary artery pressure due to technically difficult study. Aortic Valve Normal aortic valve. Trisinus/trileaflet aortic valve. Pulmonic Valve Normal pulmonic valve. Great Vessels Normal aortic root. Normal arch. Normal inferior vena cava. Inferior vena cava collapse with sniff. Pericardium/Pleural Small pericardial effusion. Fibrinous strands. There are no echocardiographic indications of cardiac tamponade. Medication Performed a rapid injection of agitated mix of 9 cc saline and 1cc air to assess for atrial septal defect. MMode/2D Measurements AND Calculations LVIDd: 3.9 cm IVSd: 1.6 cm Ao root diam: 2.8 cm LVIDs: 2.5 cm LVPWd: 1.7 cm LA dimension: 4.4 cm RVDd: 2.8 cm FS: 35.6 % LAV(MOD-bp): 57.1 ml LA A4 area: 17.5 cm2 RA A4 area: 14.0 cm2 LAV(MOD-bp) Indexed: 27.1 ml/m2 LAV(MOD-sp2): 53.6 ml LAV(MOD-sp4): 55.4 ml Doppler Measurements AND Calculations MV E max bird: 84.5 cm/sec Lat Peak E' Bird: 8.0 cm/sec Med Peak E' Bird: 4.7 cm/sec MV A max bird: 124.5 cm/sec E/E' lat: 10.6 E/E' med: 17.9 MV E/A: 0.68 Ao V2 max: 144.2 cm/sec LV V1 max: 123.3 cm/sec PA V2 max: 148.7 cm/sec Ao max P.3 mmHg LV V1 max P.1 mmHg Interpretation Summary Moderate concentric left ventricular hypertrophy. The estimated ejection fraction is 65 %. Saline contrast study demonstrates trivial right to left interatrial shunt. Unable to estimate RV systolic pressure/pulmonary artery pressure due to technically difficult study. Small anterior pericardial effusion. Fibrinous strands located on epicardial surface of RV; possible epicardial fat. There are no echocardiographic indications of cardiac tamponade. Compared to echo report dated 06/25/2011, LV function has remained the same. Small anterior pericardial effusion without tamponade noted on today's exam. Ordering Physician: Isamar Smith Referring Physician: Anderson Gaston Performed By: Cherri Marie RDCS 11/20/17 1033 Date Mayo Miguel MD CC: Isamar Smith; Anderson Gaston MD Date Dictated: 11/20/17 0638 Date Transcribed: 11/20/17 1033 Hand Packager: Signed CONSULTATION Observed: 11/20/2017 Status: F Source: [facility] 10:21 AM [facility] REPOSITORY [facility] Medical Records Department [address] [place] [address] Consultation 11/20/17 0707 MR#: [id number] Acct: [id number] Name: WILLIAMS BURGOS Rep #: [id number] : 1970 46 From: Joao Hayes DO PCP: Anderson Gaston MD Status: ADM IN Y Location: ICU ICU02-1 Reason for Consult Date of Consultation: 11/20/17 Reason for Consultation: Hypertensive emergency History of Present Illness: The patient is a 46-year-old male, with a history as outlined below, who presented to the emergency department on November 19 with complaints of high blood pressure readings and hyperglycemia. The patient is inherently noncompliant with the use of outpatient medications and is noncompliant with a diabetic diet. The patient reported the presence of ear fullness and ringing, along with a headache on the day of his presentation. He does routinely utilize smokeless tobacco. He states that his child has been sick recently and he has therefore been noncompliant with use of his home medication regimen. On presentation to the emergency department, the patient was noted to be tachycardic and hypotensive with a blood pressure reading of 209/131. He was initially maintaining appropriate oxygen saturations on room air. Laboratory evaluation revealed no evidence for leukocytosis. Chemistry profile was notable for a serum potassium of 3.4, along with evidence of acute kidney injury with a creatinine of 2.47. Glucose was elevated to 359 and the patient had a hemoglobin A1c noted to be 10.5. Troponin was negative. MRSA screen was positive. Head CT revealed chronic involutional changes without evidence of acute intracranial hemorrhage. Plain film chest x-ray revealed a mild degree of pulmonary vascular congestion. There is initial concern for hypertensive emergency leading to pulmonary edema and potential decompensated heart failure. The patient was subsequently started on a nitro drip and transferred to the medical intensive care unit for ongoing management. Past Medical History Past Medical History (Chronic Problems): Chronic Problems HTN (hypertension) (Chronic) HLD (hyperlipidemia) (Chronic) Blind left eye (Chronic) Diabetes mellitus type II, uncontrolled (Chronic) Neuropathy (Chronic) Obesity (BMI 30.0-34.9) (Chronic) Anxiety and depression (Chronic) GERD (gastroesophageal reflux disease) (Chronic) Chewing tobacco nicotine dependence (Chronic) CKD (chronic kidney disease) stage 3, GFR 30-59 ml/min (Chronic) Leg edema, right (Chronic) Malnutrition (Chronic) Diabetes mellitus with neuropathy (Chronic) Type II diabetes mellitus (Chronic) History of acute myocardial infarction (Chronic) Allergies No Known Allergies Allergy (Verified 11/19/17 17:48) Home Medications: Ambulatory Orders Medication Instructions Recorded Gabapentin [Neurontin] 600 mg PO TIDCM 07/15/13 Surgical History: - - Cholecystectomy, left retinal tear repair attempts, right eye laser surgery. Psychiatric History: Anxiety, Depression Lives: Spouse/ Significant Other Smoking Status: Never smoker Tobacco Use: Chew - 2-3 can/q 2 days. Alcohol: Rare Drugs: None - *Family History Maternal History Items: Heart Disease Paternal History Items: Cancer - Father w/ Colon CA. Review of Systems Constitutional: Denies: Chills, Fever, Weight Change Eyes: Reports: Blurred vision HEENT: Reports: Difficulty Hearing, Head Aches. Denies: Sinus Congestion, Sinus Drainage Cardiovascular: Denies: Chest Pain, Palpitations Respiratory: Denies: Cough, Shortness of breath at rest, Sputum production Gastrointestinal: Denies: Abdominal Pain, Nausea, Vomiting Genitourinary: Denies: Dysuria Musculoskeletal: Denies: Joint Pain, Joint Tenderness Skin: Denies: Rash, Wounds Neurological: Denies: Numbness, Tingling, Focal weakness Psychiatric: Denies: Anxiety, Depression, Homicidal Ideations, Suicidal Ideations Hematologic/ Lymphatic: Denies: Easy Bruising, Easy Bleeding Patient Problems: Active and Suspected Problems Hypertensive emergency (Acute) CHF (congestive heart failure) (Acute) ILDA (acute kidney injury) (Acute) Objective: The patient's most recent lab work, culture data and imaging studies have all been personally reviewed. - Physical Exam General: Alert, Cooperative, No apparent distress HEENT: Atraumatic, PERRLA, Normocephalic Oral: Moist Mucosa, No Gingival or Mucosal Lesions/ Ulcerations Neck: Supple, No Nodes, Trachea Midline Lungs: No rhonchi, No wheeze, No rales, Diminished Cardiovascular: Regular rate, Regular Rhythm, Normal S1, Normal S2, No murmurs, No rub noted, No Gallop Abdomen: Bowel Sounds Present, Soft, Non Tender, Obese Extremities: No clubbing, No cyanosis, Edema Skin: No rashes, No breakdown Musculoskeletal: No Muscle Wasting Lymphatic: No Cervical, Supraclavicular, or Inguinal Adenopathy Neurological: Neuro grossly intact Psych/Mental Status: Normal Affect, Appropriate Vital Signs Temp Pulse Resp BP Pulse Ox 99.1 F 85 12 153/81 H 95 11/20/17 04:00 11/20/17 06:00 11/20/17 06:00 11/20/17 06:00 11/20/17 06:00 Oxygen Delivery Method Room Air Weight: 214 lb 4.629 oz Body Mass Index (BMI) 32.9 Intake and Output for Last 24 Hours Intake Total 250 / 250 278 / 278 Output Total 950 / 950 Balance -700 / -700 278 / 278 Laboratory Tests Past 24 Hrs WBC RBC Hgb Hct MCV MCH MCHC RDW RDW Differential Plt Count MPV Sodium Potassium WBC RBC Hgb Hct MCV MCH MCHC RDW RDW Differential Plt Count MPV Sodium 143 Potassium 3.6 Chloride 110 H POC Glucose POC Glucose 190 H Clinical Impression(s) from Imaging Studies Brain CT 11/19/17 18:03 IMPRESSION: 1. Chronic involutional changes of the brain. 2. No CT evidence of acute intracranial hemorrhage. Electronically Signed: Neli Watson MD at 19:08 EDT , Service support , Chest X-Ray 11/19/17 18:30 IMPRESSION: Mild pulmonary congestion. Differential considerations include acute exacerbation of reactive airway disease or viral infection. Electronically Signed: Neli Watson MD at 19:19 EDT , Service support , Assessment/Plan Active and Suspected Problems Hypertensive emergency (Acute) CHF (congestive heart failure) (Acute) ILDA (acute kidney injury) (Acute) RECOMMENDATIONS: 1. Continue to wean nitro drip as tolerated 2. Restart TOM inhibitor and beta-elizabeth at half dose. Upward titration is indicated. 3. Continue Levemir and sliding scale insulin coverage 4. Consider outpatient endocrinology follow-up 5. Nutrition to provide diabetic education 6. Wean supplemental oxygen to maintain saturations at or above 90%. Encourage incentive spirometer use and mobilize patient as tolerated. 7. Obtain baseline echocardiogram IMPRESSIONS: 1. Hypertensive emergency secondary to outpatient noncompliance The patient has been noncompliant with the use of his outpatient antihypertensive regimen, leading to his uncontrolled blood pressure parameters at presentation. He has been maintained on a nitro drip since admission. We will plan to restart his home TOM inhibitor and beta-elizabeth at half dose today. Wean nitro drip as tolerated. We will also plan to obtain baseline echocardiogram. Continue Lasix for now. 2. Uncontrolled diabetes mellitus Continue Levemir and sliding scale insulin coverage. The patient's hemoglobin A1c certainly indicates outpatient noncompliance. Nutrition to provide diabetic education. Consider referral to endocrinology for outpatient follow-up. 3. Acute on chronic kidney disease May be related to progression of his underlying medical renal disease. We will continue to monitor creatinine and urine output. No indication for renal replacement therapy at this time. Blood pressure control as noted above. 4. Hyperlipidemia/anxiety/depression/GERD/smokeless tobacco dependence/obesity Complicates care, management, recovery and prognosis. Okay to continue home medications from my perspective. Weight loss is suggested. This note was generated with [employer] dictation software. It may contain incorrect words, spelling, and punctuation that were not noted in checking the note before signing. Code Visit Inpatient E AND M: 04309 Init Hosp L3 11/20/17 1021 <Electronically signed by Joao Hayes DO> Date Joao Hayes DO Cosigner Signature (if applicable): Date CC: Anderson Gaston MD; Joao Hayes D.O. Signed TROPONIN-I Collected: 11/20/2017 Status: F Source: [facility] 7:40 AM [facility] REPOSITORY Order Comment: 'TROP' Serial specimen #1, #2, #3, or #4: 4 TYPE CODE TESTS RESULT OUT OF RANGE REFERENCE UNITS LAB L501.4010 <0.06 ng/mL Normal 0.02 TROPONIN-I Result Comment: TROPONIN-I EXPECTED VALUES <0.05 NEGATIVE 0.06 - 0.59 AT RISK OF NM > OR = 0.60 SUGGEST NM Performed By: #### L501.4010 #### [facility] [address] [place], [address] BASIC METABOLIC Collected: 11/20/2017 Status: F Source: [facility] PROFILE (BMP) 6:25 AM [facility] REPOSITORY Order Comment: REDRAW. PREVIOUS SPECIMEN REJECTED DUE TO SPECIMEN BEING HEMOLYZED. 11/20/17 0620 Gen Armas. TYPE CODE TESTS RESULT OUT OF RANGE REFERENCE UNITS LAB L501.0100 74-106 mg/dL High GLU 159 Result Comment: Fasting Glucose result greater than or equal to 126 mg/dL suggests DIABETES MELLITUS per A.D.A. criteria. Please note revised GLUCOSE reference range effective 2017. LAB L501.1000 7-18 mg/dL High BUN 42 LAB L501.1100 0.70-1.30 mg/dL High CREAT,SERUM 2.46 Result Comment: The validity of the calculated GFR AND GFRAA in patients over 70 years has not been determined. Clinical correlation is essential. LAB L501.1110 >60 mL/min Low EST GFR 30 Result Comment: Non- GFR Calc LAB L501.1115 >60 mL/min Low EST GFR - AA 36 Result Comment: GFR Calc LAB L501.1255 ml/min Normal Estimated CRCL 35.53 LAB L501.1300 10-20 RATIO Normal BUN/CRE 17.1 LAB L501.2200 8.5-10 mg/dL Low .1 CA 7.9 LAB L501.5300 136-14 mmol/L Normal 5 NA 143 LAB L501.5600 3.5-5. mmol/L Normal 1 K 3.6 LAB L501.5900 98-107 mmol/L High CL 110 LAB L501.6100 21.0-3 mmol/L Normal 2.0 CO2 25.0 LAB L501.6200 5-15 Normal GAP 8 Performed By: #### L500.2500, L500.4100 #### [facility] [address] [place], [place], [address] LIPID PROFILE Collected: 11/20/2017 Status: F Source: [facility] 6:25 AM [facility] REPOSITORY Order Comment: REDRAW. PREVIOUS SPECIMEN REJECTED DUE TO SPECIMEN BEING HEMOLYZED. 11/20/17 0620 Gen [facility]. TYPE CODE TESTS RESULT OUT OF RANGE REFERENCE UNITS LAB L501.4900 200 mg/dL High CHOL 284 Result Comment: <200 mg/dL Desirable 200-240 mg/dL Borderline >240 mg/dL High Risk LAB L501.5000 mg/dL Normal TRIG 139 Result Comment: The drugs N-Acetylcysteine and Metamizole may falsely depress this assay. Serum Triglycerides Reference Interval Normal <150 mg/dL Borderline high 150 - 199 mg/dL High 200 - 499 mg/dL Very High > or = 500 mg/dL LAB L501.6400 mg/dL Normal HDL 43 Result Comment: The drugs N-Acetylcysteine and Metamizole may falsely depress this assay. Reference Range HDL <40 mg/dL Low HDL Cholesterol HDL >or= 60 mg/dL High HDL Cholesterol LAB L501.6500 0-130 mg/dL High LDL 213 LAB L501.6600 5-40 mg/dL Normal VLDL 28 Performed By: #### L500.2500, L500.4100 #### [facility] [address] [place], [address] CBC-COMPLETE BLOOD CNT Collected: 11/20/2017 Status: F Source: [facility] NO DIFF 5:45 AM [facility] REPOSITORY TYPE CODE TESTS RESULT OUT OF RANGE REFERENCE UNITS LAB L100.1000 4.4-11.0 K/mm3 Normal WBC 7.0 LAB L100.1200 4.6-6.2 M/mm3 Low RBC 3.45 LAB L100.1300 13.0-16.5 g/dl Low HGB 10.3 LAB L100.1400 40-54 % Low HCT 28.9 LAB L100.1500 80-94 fL Normal MCV 83.8 LAB L100.1600 27.0-32.0 pg Normal MCH 29.9 LAB L100.1700 32-36 g/gl Normal MCHC 35.6 LAB L100.1810 11.6-14.6 % Normal RDW CV 12.9 LAB L100.1820 35.1-43.9 fl Normal RDW SD 37.3 LAB L100.1900 150-450 K/mm3 Normal PLT 205 LAB L100.2000 6.2-12.0 fl Normal MPV 10.6 Performed By: #### L100.0500 #### [facility] [address] [place], [address] TROPONIN-I Collected: 11/20/2017 Status: F Source: [facility] 1:40 AM [facility] REPOSITORY Order Comment: 'TROP' Serial specimen #1, #2, #3, or #4: 3 TYPE CODE TESTS RESULT OUT OF RANGE REFERENCE UNITS LAB L501.4010 <0.06 ng/mL Normal 0.03 TROPONIN-I Result Comment: TROPONIN-I EXPECTED VALUES <0.05 NEGATIVE 0.06 - 0.59 AT RISK OF NM > OR = 0.60 SUGGEST NM Performed By: #### L501.4010 #### [facility] [address] [place], [address] EMERGENCY DEPARTMENT Observed: 11/20/2017 Status: F Source: [facility] SUMMARY 12:10 AM [facility] REPOSITORY [facility] Medical Records Department [address] [place] [address] Emergency Department Summary 11/19/172004 MR#: [id number] Acct: [id number] Name: WILLIAMS BURGOS Rep #: [id number] : 1970 46 From: Jimenez Roman MD PCP: Anderson Gaston MD Status: ADM IN - ER Visit Summary Date of Service: 11/19/17 Chief Complaint: High blood pressure and high blood glucose History of Present Illness: The patient is a 46 M presenting to the emergency department from urgent care secondary to elevated blood pressure and glucose. Patient has an underlying history diabetes hypertension high cholesterol for which he is noncompliant with his medications. Patient states that he woke up today and noticed that he was having decreased hearing right worse than left with tinnitus in the ears bilaterally. Patient states that he did not take any of his morning medications. He states that his blood sugars have been running in the 3 and 400s over the course of the last month. Patient presented to urgent care, was noted to have blood pressures in the 200s, as well as blood sugar that was significantly elevated and was recommended to come to the emergency department. Patient states that he intermittently has some visual changes nothing new. Denies any numbness or weakness. He does endorse that he is having some lower extremity edema and exertional dyspnea. Review of systems otherwise negative. Physical Examination: Vital signs notable blood pressure 222/111. Obese male no acute distress. Right eye PRL, EOMI, left eye she is status post retinal detachment. TMs normal bilaterally. Dry mucous membranes with tobacco staining noted. Neck supple. Heart regular rate and rhythm. Lungs sounds clear. Abdomen soft nontender. Extremities show 2+ pitting edema bilaterally. Patient is alert and oriented. NIH stroke scale is 0. Test Results: EKG shows sinus rhythm at 97 with frequent PVCs nonspecific T-wave flattening. Frequent PVCs are changed from prior EKG where they were not present. CBC unremarkable, chemistry shows hyperglycemia with acute kidney injury creatinine 2.47 with patient's highest creatinine being 1.8. Troponin negative. Chest x-ray does show some pulmonary vascular congestion. CT brain shows chronic changes. Emergency Department Course and Treatment: Patient presented secondary to difficulty hearing high blood pressure high glucose. IV was established patient was given 10 units of insulin and 2 L normal saline. Give the patient is home doses of lisinopril and metoprolol his blood pressure did improve to 205/97. Patient's workup showed evidence of likely cardiac strain due to uncontrolled hypertension as well as acute kidney injury and hyperglycemia. I believe that the patient requires admission for this. I discussed this with the hospitalist. Disposition: Admission Impression: 1. Uncontrolled hypertension 2. Congestive heart failure 3. Acute kidney injury 4. Hyperglycemia 5. Medication noncompliance This note was generated with [employer] dictation software. It may contain incorrect words, spelling, and punctuation that were not noted in review of the chart prior to signing ED Disposition - Plan for ED Patient: Chief Complaint: General Illness Referrals: Andesron Gaston MD [Primary Care Provider] - What to do if you have Problems For any increased pain, shortness of breath, bleeding, nausea or vomiting, chest pain, or any unexpected problems, contact your Primary Care Provider. Call [facility] [employer] [facility] ([phone]) or report to the closest Emergency Room. Call 911 if necessary. 11/20/17 0010 <Electronically signed by Jimenez Roman MD> Date Jimenez Roman MD Cosigner Signature (If Indicated): Date CC: Anderson Gaston MD MAGNESIUM Collected: 11/19/2017 Status: F Source: [facility] 10:10 PM [facility] REPOSITORY TYPE CODE TESTS RESULT OUT OF RANGE REFERENCE UNITS LAB L501.5200 1.6-2.6 mg/dL Normal MG 1.9 Result Comment: Please note revised Magnesium reference range effective 2017. Performed By: #### L501.5200, L501.9520 #### [facility] [address] [place], [place], [address] THYROID STIM HORMONE Collected: 11/19/2017 Status: F Source: [facility] ([facility]) 10:10 PM [facility] REPOSITORY TYPE CODE TESTS RESULT OUT OF RANGE REFERENCE UNITS LAB L501.9520 0.358-3.74 uIU/mL Normal TSH 3.13 Performed By: #### L501.5200, L501.9520 #### [facility] [address] [place], [address] TROPONIN-I Collected: 11/19/2017 Status: F Source: [place] 10:10 PM [facility] REPOSITORY Order Comment: 'TROP' Serial specimen #1, #2, #3, or #4: 2 TYPE CODE TESTS RESULT OUT OF RANGE REFERENCE UNITS LAB L501.4010 <0.06 ng/mL Normal 0.04 TROPONIN-I Result Comment: TROPONIN-I EXPECTED VALUES <0.05 NEGATIVE 0.06 - 0.59 AT RISK OF NM > OR = 0.60 SUGGEST NM Performed By: #### L501.4010 #### [facility] [address] [place], [address] BEDSIDE GLUCOSE Collected: 11/19/2017 Status: F Source: [place] 10:04 PM [facility]POS[facility] TYPE CODE TESTS RESULT OUT OF REFERENCE UNITS RANGE LAB L501.080 70-110 mg/dL High BEDSIDE GLU 190 Result Comment: MANAGEMENT OF PATIENT CARE PER NURSING PROTOCOL Performed By: #### L501.080 #### [facility] Point of Care [address] [place] [address] M R STAPH AUREUS Collected: 11/19/2017 Status: F Source: [facility] DNA BY PCR 9:25 PM [facility] REPOS[facility] TYPE CODE TESTS RESULT OUT OF REFERENCE UNITS RANGE LAB L8200.1100 Negative High MRSA POSITIVE RESULT Result Comment: CALLED TO José TANNER 11/19/17 AT 2312 BY CPOPIEL Performed By: #### L8200.1000 #### [facility] [address] [place], [address] HISTORY AND PHYSICAL Observed: 11/19/2017 Status: F Source: [facility] EXAM 9:21 PM [facility] REPOSITORY [facility] Medical Records Department [address] [address] History and Physical 11/19/171948 MR#: [id number] Acct: [id number] Name: WILLIAMS BURGOS Rep #: [id number] : 1970 46 From: Isamar Smith PCP: Anedrson Gaston MD Status: ADM IN Y Location: ICU ICU02-1 Problem List (1) HTN (hypertension) Status: Chronic Qualifiers: Hypertension type: essential hypertension Qualified Code(s): I10 - Essential (primary) hypertension (2) HLD (hyperlipidemia) Status: Chronic Qualifiers: Hyperlipidemia type: unspecified Qualified Code(s): E78.5 - Hyperlipidemia, unspecified (3) Blind left eye Status: Chronic (4) Diabetes mellitus type II, uncontrolled Status: Chronic Qualifiers: Diabetes mellitus residential insulin use: with residential use Diabetes mellitus complication status: with unspecified complications Qualified Code(s): E11.8 - Type 2 diabetes mellitus with unspecified complications; E11.65 - Type 2 diabetes mellitus with hyperglycemia; 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 (5) Neuropathy Status: Chronic (6) Obesity (BMI 30.0-34.9) Status: Chronic (7) Anxiety and depression Status: Chronic (8) GERD (gastroesophageal reflux disease) Status: Chronic Qualifiers: Esophagitis presence: esophagitis presence not specified Qualified Code(s): K21.9 - Gastro-esophageal reflux disease without esophagitis (9) Chewing tobacco nicotine dependence Status: Chronic Qualifiers: Substance use status: unspecified nicotine-induced disorder Qualified Code(s): F17.229 - Nicotine dependence, chewing tobacco, with unspecified nicotine- induced disorders (10) Hypertensive emergency Status: Acute (11) CHF (congestive heart failure) Status: Acute Qualifiers: Heart failure type: unspecified Heart failure chronicity: acute Qualified Code(s): I50.9 - Heart failure, unspecified (12) ILDA (acute kidney injury) Status: Acute (13) CKD (chronic kidney disease) stage 3, GFR 30-59 ml/min Status: Chronic History of Present Illness Date of Admission: 11/19/17 Chief Complaint: Exertional Dyspnea, LE Edema, Fatigue, Elevated BP, Headaches The patient is a 46 y/o M w/ PMHx: HTN, HLD, Uncontrolled Diabetes mellitus type II with Neurology, CKD stage III (prior Cr 1.9), Chew Tobacco use, History of L Retinal Tear s/p attempted repair now Chronically Blind, Obesity, Anxiety and Depression, GERD who presents to the [facility] ED on 11/19/17 with history of ongoing uncontrolled blood pressures ( 200/100 frequently), elevated BS (300-400 range), headaches, vision changes, ringing BL ears intermittently, worsened over the last week in addition to BL LE pitting edema to his knees, weight gain and exertional dyspnea and orthopnea worsening over the last 1 week. He admits to not taking his medications and not following a diabetic diet. He notes recently being at his PCP office. In the ED work-up included AF, HR 80s, BP 205/121-->190/112 after being given his home BB and lisinopril in the ED, RR 14, 100% on RA, CBC w/ WBC 5.2, HGB 11.7, Plts 203 without shift, BMP with K 3.4, BUN/Cr 37/2.47 (noted worsened fx 05/29/17 Cr 1.9), glucose 359, trop 0.03, EKG with SR with PVC, CT brain without acute findings, CXR with mild congestion. In the ED patient administered insulin aspart 10 u SC x 1, lisinopril 40 mg po x 1, metoprolol 25 mg po x 1, NS 2L x 1. Past Medical History Past Medical History (Chronic Problems): Chronic Problems HTN (hypertension) (Chronic) HLD (hyperlipidemia) (Chronic) Blind left eye (Chronic) Diabetes mellitus type II, uncontrolled (Chronic) Neuropathy (Chronic) Obesity (BMI 30.0-34.9) (Chronic) Anxiety and depression (Chronic) GERD (gastroesophageal reflux disease) (Chronic) Chewing tobacco nicotine dependence (Chronic) CKD (chronic kidney disease) stage 3, GFR 30-59 ml/min (Chronic) Leg edema, right (Chronic) Malnutrition (Chronic) Diabetes mellitus with neuropathy (Chronic) Type II diabetes mellitus (Chronic) History of acute myocardial infarction (Chronic) Allergies No Known Allergies Allergy (Verified 11/19/17 17:48) Home Medications: Ambulatory Orders Medication Instructions Recorded Gabapentin [Neurontin] 600 mg PO TIDCM 07/15/13 Surgical History: - - Cholecystectomy, left retinal tear repair attempts, right eye laser surgery. Psychiatric History: Anxiety, Depression Lives: Spouse/ Significant Other Smoking Status: Never smoker Tobacco Use: Chew - 2-3 can/q 2 days. Alcohol: Rare Drugs: None - *Family History Maternal History Items: Heart Disease Paternal History Items: Cancer - Father w/ Colon CA. Review of Systems Constitutional: Reports: Malaise, Weakness, Fatigue. Denies: Chills, Fever, Weight Change HEENT: Reports: Head Aches, Hearing Changes, Visual Changes. Denies: Sinus Congestion, Sinus Drainage Cardiovascular: Reports: Edema, Orthopnea. Denies: Chest Pain, Palpitations Respiratory: Reports: Cough, Shortness of breath upon exertion. Denies: Shortness of breath at rest, Sputum production Gastrointestinal: Denies: Abdominal Pain, Nausea, Vomiting Genitourinary: Denies: Dysuria Musculoskeletal: Denies: Joint Pain, Joint Tenderness Skin: Denies: Rash, Wounds Neurological: Denies: Numbness, Tingling, Focal weakness Psychiatric: Reports: Anxiety, Depression. Denies: Homicidal Ideations, Suicidal Ideations Hematologic/ Lymphatic: Denies: Easy Bruising, Easy Bleeding VTE Information - Inpt Only VTE Present on Admission: No VTE Mechan Device Prophylaxis: SCD's VTE Pharm Prophylaxis ordered?: Yes Patient Problems: Active and Suspected Problems Hypertensive emergency (Acute) CHF (congestive heart failure) (Acute) ILDA (acute kidney injury) (Acute) Subjective: Seated upright in the ED bed, fatigued, NAD otherwise. Objective: Physical Examination: General: awake, alert, oriented x 3 and cooperative, seated upright in the ED bed in no apparent distress. Skin: normal color, turgor, no icterus, cyanosis. HEENT: AT/NC, EOMI, R pupil reactive, L eye blind, non-reactive, mildly dry MM, no carotid bruits, + JVD noted. Lungs: Diminished BS BL, > bases, moderate effort, minimal R>L bases crackles, no ronchi or wheezing. Heart: Regular rate and rhythm; no gallop, rub audible. Abdomen: soft, obese, NTTP, ND, normal BS, no HSM. Extremities: no cyanosis, clubbing, BL LE ankle to knee 2- 3+ pitting edema. Neurological: patient awake, alert, oriented x 3; cognitive function intact; L pupil reactive to light; cranial nerves II-XII grossly normal aside noted L eye blindness, moving all 4 extremities, no focal deficits, strength moderately globally decreased secondary to acute presentation. Psychiatric: affect appears normal, no acute evidence of depressive or anxiety feelings. - Physical Exam Vital Signs Temp Pulse Resp BP Pulse Ox 98.6 F 87 17 207/97 H 100 11/19/17 17:46 11/19/17 19:46 11/19/17 19:46 11/19/17 19:46 11/19/17 19:46 Oxygen Flow Rate (L/min) 2 Oxygen Delivery Method Nasal Cannula Weight: 216 lb Body Mass Index (BMI) 32.8 Finger Stick Blood Glucose 281 Laboratory Tests Past 24 Hrs WBC 5.2 RBC 4.00 L Hgb 11.7 L Hct 32.9 L MCV 82.3 MCH 29.3 MCHC 35.6 RDW 12.6 RDW Differential 37.9 POC Glucose POC Glucose 281 H 363 H Assessment/Plan Active and Suspected Problems Hypertensive emergency (Acute) CHF (congestive heart failure) (Acute) ILDA (acute kidney injury) (Acute) The patient is a 46 y/o M w/ PMHx: HTN, HLD, Uncontrolled Diabetes mellitus type II with Neurology, CKD stage III , Chew Tobacco use, History of L Retinal Tear s/p attempted repair now Chronically Blind, Obesity, Anxiety and Depression, GERD who presents to the [facility] ED on 11/19/17 with history of ongoing uncontrolled blood pressures, elevated BS, headaches, vision changes, ringing BL ears intermittently, worsened over the last week in addition to BL LE pitting edema to his knees, weight gain and exertional dyspnea and orthopnea worsening over the last 1 week. (1) Acute Decompensated CHF, Unclear type, secondary to Uncontrolled HTN, HTN emergency: CXR obtained in the ED w/ congestion. Given elevated BPs, admitted to the ICU in order to titrate regimen as noted, will maintain on cardiac telemetry obtain cardiac enzyme series, obtain serial EKGs, initiation and continue IV lasix diuresis, monitor I/Os, maintain on intake restriction, continue medical therapy w/ IV NG with titration as needed, asa, statin, holding ACEI, holding BB pending ECHO. Will obtain TSH and magnesium level. (2) Hypertensive Emergency: Acute CHF secondary to Acute Hypertensive Emergency: As noted, given severity of appearing, admitting to the ICU to initiate NG IV, titrate as needed, PRN hydralazine, defer BB pending improvement and ECHO, holding ACEI secondary to concurrent worsened renal disease secondary to HTN. (3) Acute kidney injury on CKD stage III Suspected per Labs: Secondary to #1,#2. Admission BUN/Cr 37/2.47, prior baseline creatinine noted to be 1.9 05/2017. Given secondary to uncontrolled HTN, hopefully expect improvement with improved HTN, as noted given 2L in the ED and ACEI home regimen, will hold on further hydration with diuresis as noted above, hold ACEI. If no improvement with treatment #1, #2, would plan FeNa assessment and renal US. (4) Diabetes mellitus type II, Uncontrolled with Neurology: Hold oral home regimen, alter home insulin regimen, change to 35 u levemir BID, likely increase as needed, HgbA1c pending, ADA diet, accu checks w/ ISS, nutrition consulted for education and teaching. (5) Hyperlipidemia: Continue home statin regimen. AM FLP. (6) Anxiety and Depression: Continue home psychiatric regimen. (7) GERD: Holding agent given worsened renal disease. (8) History of L Retinal Tear s/p attempted repair: Now blind L eye, stable. (9) Chew Tobacco use: Encouraged cessation, inpatient consultation per RT, NR if desired. (10) Obesity: Weight loss and lifestyle changes encouraged. (11) DVT Prophylaxis: SCDs, heparin. Code Visit Inpatient E AND M: 21271 Init Hosp L3 11/19/172120 <Electronically signed by Isamar Smith > Date Isamar Smith Cosigner Signature: Date (if applicable) CC: Isamar Smith; Anderson Gaston MD Signed BEDSIDE GLUCOSE Collected: 11/19/2017 Status: F Source: [place] 7:21 PM [facility]POS[facility] TYPE CODE TESTS RESULT OUT OF REFERENCE UNITS RANGE LAB L501.080 70-110 mg/dL High BEDSIDE GLU 281 Result Comment: Dr Maradiaga Followed MANAGEMENT OF PATIENT CARE PER NURSING PROTOCOL Performed By: #### L501.080 #### [facility] Point of Care [address] [place] [address] CBC W/DIFF, AUTOMATED Collected: 11/19/2017 Status: F Source: [place] 6:15 PM [facility]POS[facility] TYPE CODE TESTS RESULT OUT OF RANGE REFERENCE UNITS LAB L100.1000 4.4-11.0 K/mm3 Normal WBC 5.2 LAB L100.1200 4.6-6.2 M/mm3 Low RBC 4.00 LAB L100.1300 13.0-16.5 g/dl Low HGB 11.7 LAB L100.1400 40-54 % Low HCT 32.9 LAB L100.1500 80-94 fL Normal MCV 82.3 LAB L100.1600 27.0-32.0 pg Normal MCH 29.3 LAB L100.1700 32-36 g/gl Normal MCHC 35.6 LAB L100.1810 11.6-14.6 % Normal RDW CV 12.6 LAB L100.1820 35.1-43.9 fl Normal RDW SD 37.9 LAB L100.1900 150-450 K/mm3 Normal PLT 203 LAB L100.2000 6.2-12.0 fl Normal MPV 9.1 LAB L100.2100 47-70 % Normal NEUT% 68.1 LAB L100.2200 19-41 % Normal LY% 26.3 LAB L100.2300 0-10 % Normal MONO% 4.6 LAB L100.2400 0-5 % Normal EO% 0.6 LAB L100.2500 0-1 % Normal BASO% 0.4 LAB L100.2550 0.0-0.9 % Normal IM GRAN % 0.000 Result Comment: IG% - Immature Granulocytes (promyelocytes, myelocytes and metamyelocytes) > 1% indicates that a LEFT SHIFT is Present. LAB L100.2620 2.0-7.7 X10 3/uL Normal Absolute Neut 3.6 LAB L100.2720 0.83-4.51 X10 3/ul Normal Absolute Lymph 1.38 Performed By: #### L100.0100 #### [facility] [address] [place], [place], [id number] BASIC METABOLIC Collected: 11/19/2017 Status: F Source: [place] PROFILE (BMP) 6:15 PM [facility]POS[facility] Order Comment: 'TROP' Serial specimen #1, #2, #3, or #4: 1 TYPE CODE TESTS RESULT OUT OF RANGE REFERENCE UNITS LAB L501.0100 74-106 mg/dL High GLU 359 Result Comment: Glucose result greater than or equal to 200 mg/dL suggests DIABETES MELLITUS per A.D.A. criteria. Please note revised GLUCOSE reference range effective 2017. LAB L501.1000 7-18 mg/dL High BUN 37 LAB L501.1100 0.70-1.30 mg/dL High CREAT,SERUM 2.47 Result Comment: The validity of the calculated GFR AND GFRAA in patients over 70 years has not been determined. Clinical correlation is essential. LAB L501.1110 >60 mL/min Low EST GFR 30 Result Comment: Non- GFR Calc LAB L501.1115 >60 mL/min Low EST GFR - AA 36 Result Comment: GFR Calc LAB L501.1255 ml/min Normal Estimated CRCL 35.38 LAB L501.1300 10-20 RATIO Normal BUN/CRE 15.0 LAB L501.2200 8.5-10 mg/dL Low .1 CA 8.0 LAB L501.5300 136-14 mmol/L Normal 5 NA 140 LAB L501.5600 3.5-5. mmol/L Low 1 K 3.4 LAB L501.5900 98-107 mmol/L Normal CL 106 LAB L501.6100 21.0-3 mmol/L Normal 2.0 CO2 28.0 LAB L501.6200 5-15 Normal GAP 6 Performed By: #### L500.2500, L501.4010 #### [facility] [address] [facility] [place], [address] TROPONIN-I Collected: 11/19/2017 Status: F Source: [facility] 6:15 PM [facility] Order Comment: 'TROP' Serial specimen #1, #2, #3, or #4: 1 TYPE CODE TESTS RESULT OUT OF RANGE REFERENCE UNITS LAB L501.4010 <0.06 ng/mL Normal 0.03 TROPONIN-I Result Comment: TROPONIN-I EXPECTED VALUES <0.05 NEGATIVE 0.06 - 0.59 AT RISK OF NM > OR = 0.60 SUGGEST NM Performed By: #### L500.2500, L501.4010 #### [facility] [address] [place], [place], [address] HEMOGLOBIN A1C Collected: 11/19/2017 Status: F Source: [facility] 6:15 PM [facility] TYPE CODE TESTS RESULT OUT OF RANGE REFERENCE UNITS LAB L501.9985 4.2-6.3 % High HGB A1C 10.5 Performed By: #### L501.9985 #### [facility] [address] [facility] [place], [place], [address] BEDSIDE GLUCOSE Collected: 11/19/2017 Status: F Source: [facility] 6:14 PM [facility] TYPE CODE TESTS RESULT OUT OF REFERENCE UNITS RANGE LAB L501.080 70-110 mg/dL High BEDSIDE GLU 363 Result Comment: MANAGEMENT OF PATIENT CARE PER NURSING PROTOCOL Performed By: #### L501.080 #### [facility] Point of Care [address] [place] [address] BRAIN/HEAD WITHOUT Observed: 11/19/2017 Status: F Source: [facility] CONTRAST 6:05 PM [facility] REPOSITORY [facility] Imaging Services [address] [place] [address] Brain/Head without Contrast MR#: [id number] Acct: [id number] Name: WILLIAMS BURGOS Rep #: [id number] : 1970 M 46 From: Neli Watson MD PCP: Anderson Gaston MD Status: REG ER Study: Brain/Head without Contrast Date of Exam: 11/19/17 Exam# [id number] Ordering Dr: Jimenez Roamn MD STUDY: CT BRAIN WITHOUT CONTRAST REASON FOR EXAM: Male, 46 years old. Headache and ringing in ears. RADIATION DOSAGE (If Supplied By Facility): CTDIvol = ( 44.99 ) mGy, DLP = ( 796.11 ) mGycm TECHNIQUE: Transaxial CT imaging of the brain was performed without administration of intravenous contrast material. Multiplanar reformations are submitted for interpretation. Individualized dose optimization techniques were used for this CT. COMPARISON: CT the head dated July 15, 2013. FINDINGS: There is radiopaque substance within the left globe, similar to the previous CT. The right orbit has a normal appearance. Normal calvarium. There is mild cerebral atrophy with widening of the extra- axial spaces and ventricular dilatation. There are areas of decreased attenuation within the white matter tracts of the supratentorial brain, consistent with microvascular disease changes. Normal basal ganglia and thalami. Normal brainstem. Normal cerebellum. There is no intracranial hemorrhage. There is patchy atherosclerotic calcification of intracranial arteries. There is mild mucoperiosteal thickening within the maxillary sinuses. CT/Brain/Head without Contrast IMPRESSION: 1. Chronic involutional changes of the brain. 2. No CT evidence of acute intracranial hemorrhage. Electronically Signed: Neli Watson MD at 19:08 EDT , Service support , CC: Anderson Gaston MD; Jimenez Roman Hand Packager: Signed CHEST 1 VIEW Observed: 11/19/2017 Status: F Source: [facility] 6:05 PM [facility] REPOSIT[facility] Imaging Services [address] [place] [address] Chest 1 View MR#: [id number] Acct: [id number] Name: WILLIAMS BURGOS Rep #: [id number] : 1970 M 46 From: Neli Watson MD PCP: Anderson Gaston MD Status: REG ER Study: Chest 1 View Date of Exam: 11/19/17 Exam# [id number] Ordering Dr: Jimenez Roman MD STUDY: X-RAY CHEST REASON FOR EXAM: Male, 46 years old. Hypertension. TECHNIQUE: Single AP portable view of the chest. COMPARISON: April 23, 2014. FINDINGS: Cardiac monitoring leads are present. The lungs are expanded. There is mild interstitial thickening present in both lungs. There is no demonstrated pleural abnormality. Normal size heart. There are calcified mediastinal and hilar lymph nodes. There is prominence of the pulmonary hilar arteries with peripheral pulmonary vascular congestion. There is atherosclerotic tortuosity of the aortic arch and descending thoracic aorta. Normal visualized thoracic spine. Normal visualized ribs, clavicles, and shoulders. There is no demonstrated abnormality of the visualized soft tissue structures of the upper abdomen. RAD/Chest 1 View IMPRESSION: Mild pulmonary congestion. Differential considerations include acute exacerbation of reactive airway disease or viral infection. Electronically Signed: Neli Watson MD at 19:19 EDT , Service support , CC: Anderson Gaston MD; Jimenez Roman Hand Packager: Signed PROGRESS Observed: 11/19/2017 Status: COMPLETED Source: [place] 5:17 PM [facility] REPOSITORY HNO ID: [id number] Author: Lawanda Hamilton Service: (none) Author Type: Nurse Practitioner Type: Progress Notes Filed: 11/19/2017 5:42 PM Note Text: Subjective HPI HPI Williams Burgos is a 46 year old male who presents today for CC of decreased hearing of left ear. This started yesterday. He is also having ringing in his ears. His BP is also elevated today, has not taken blood pressure medications or insulin in the past 24 hours. He has a h/o retinal detachment, blindness in left eye, and polyneuopathy. He denies any slurred speech, chest pain, headache, shortness of breath, or facial drooping, or fall, unstable gait. BP 182/100 (BP Site: Left Arm, BP Position: Sitting, BP Cuff Size: Large Adult) Pulse 76 Temp 36.6 ?C (97.8 ?F) (Left Tympanic) Resp 16 Wt 98 kg (216 lb) SpO2 99% BMI 32.84 kg/m2 ALLERGIES No Known Allergies ACTIVE PROBLEM LIST Uncontrolled Type 2 Diabetes Mellitus With Complication, With Long-Term Current Use of Insulin (Hcc) Hypertension Goal Bp (Blood Pressure) < 140/90 Other and Unspecified Hyperlipidemia Depressive Disorder, Not Elsewhere Classified Ed (Erectile Dysfunction) Lower Urinary Tract Symptoms (Luts) History of Kidney Stones Microscopic Hematuria Diabetic Polyneuropathy Associated With Type 2 Diabetes Mellitus (Hcc) Acute Pain of Right Shoulder Nausea Vomiting Family History Problem Relation Age of Onset - Colon Cancer Father 53 - Diabetes Brother 52 - Diabetes Sister - Diabetes Mother 78 - Cancer Brother 49 lung - Diabetes Son Social History Marital status: Spouse name: Years of education: Number of children: 2 Social History Main Topics Smoking status: Never Smoker Smokeless status: Current User Types: Snuff Comment: snuff x 33 years Alcohol use: Yes Comment: rarely Drug use: No Sexual activity: Yes Partners with: Female Review of Systems Constitutional: Negative. Negative for chills, fever and malaise/fatigue. HENT: Positive for hearing loss (left ear). Negative for congestion, ear pain, sinus pain and sore throat. Respiratory: Negative for cough, sputum production, shortness of breath and wheezing. Cardiovascular: Negative for chest pain. Musculoskeletal: Negative for myalgias. Skin: Negative for rash. Neurological: Negative for headaches. Objective Physical Exam Constitutional: He is well-developed, well-nourished, and in no distress. HENT: Head: Normocephalic and atraumatic. Right Ear: Tympanic membrane, external ear and ear canal normal. Tympanic membrane is not injected, not erythematous, not retracted and not bulging. No middle ear effusion. Left Ear: Tympanic membrane, external ear and ear canal normal. Tympanic membrane is not injected, not erythematous, not retracted and not bulging. No middle ear effusion. Nose: Mucosal edema and rhinorrhea present. Right sinus exhibits no maxillary sinus tenderness and no frontal sinus tenderness. Left sinus exhibits no maxillary sinus tenderness and no frontal sinus tenderness. Mouth/Throat: Uvula is midline and mucous membranes are normal. Posterior oropharyngeal erythema present. No oropharyngeal exudate, posterior oropharyngeal edema or tonsillar abscesses. Eyes: Conjunctivae and EOM are normal. Pupils are equal, round, and reactive to light. Neck: Normal range of motion. Cardiovascular: Normal rate, regular rhythm and normal heart sounds. Pulmonary/Chest: Effort normal and breath sounds normal. No respiratory distress. He has no wheezes. He has no rales. Lymphadenopathy: Head (right side): No submental, no submandibular, no tonsillar, no preauricular and no posterior auricular adenopathy present. Head (left side): No submental, no submandibular, no tonsillar, no preauricular and no posterior auricular adenopathy present. He has no cervical adenopathy. Right cervical: No posterior cervical adenopathy present. Left cervical: No posterior cervical adenopathy present. Right: No supraclavicular adenopathy present. Left: No supraclavicular adenopathy present. Skin: Skin is warm and dry. Psychiatric: Affect normal. Nursing note and vitals reviewed. MDM: Fingerstick BS done - 405, BP elevated, and hearing loss, advised cannot r/o stroke since no signs of cerumen impaction, otitis or effusion - ER for further workup, report called to Dr. Johnson ASSESSMENT/PLAN: 1. Decreased hearing of left ear - ICD9: 389.9, ICD10: H91.92 (primary diagnosis) Due to nature of patient's complaint and lack of investigative tools available at [facility], recommend patient be seen at nearest ED for further work up of hearing loss r/o stroke. Patient transported to [facility] via car by . 2. Type 2 diabetes mellitus with complication, without long- term current use of insulin (HCC) - ICD9: 250.90, ICD10: E11.8 - GLUCOSE, BLOOD (POC) Diagnosis and treatment plan were discussed and questions were answered to the patient's satisfaction. Pt acknowledged understanding of concepts and follow up plan. Specific signs and symptoms that would indicate the need for higher level of care were discussed in detail warranting prompt ER evaluation. Lawanda Hamilton CNP CNOV Observed: 11/19/2017 Status: COMPLETED Source: [place] 5:00 PM [facility] REPOSITORY Office Visit ([facility]) WILLIAMS BURGOS ([id number]) 1970 M Date Time Provider Department 11/19/17 5:00 PM LAWANDA HAMILTON ([facility]) [facility] During your visit today, we recorded the following information about you: Temperature Pulse Respiration Blood pressure 97.8 degrees 76/minute 16/minute 182/100 Weight 98 kg Lawanda Hamilton CNP 11/19/2017 5:42 PM Signed Subjective HPI HPI Williams Burgos is a 46 year old male who presents today for CC of decreased hearing of left ear. This started yesterday. He is also having ringing in his ears. His BP is also elevated today, has not taken blood pressure medications or insulin in the past 24 hours. He has a h/o retinal detachment, blindness in left eye, and polyneuopathy. He denies any slurred speech, chest pain, headache, shortness of breath, or facial drooping, or fall, unstable gait. BP 182/100 (BP Site: Left Arm, BP Position: Sitting, BP Cuff Size: Large Adult) Pulse 76 Temp 36.6 ?C (97.8 ?F) (Left Tympanic) Resp 16 Wt 98 kg (216 lb) SpO2 99% BMI 32.84 kg/m2 ALLERGIES No Known Allergies ACTIVE PROBLEM LIST Uncontrolled Type 2 Diabetes Mellitus With Complication, With Long-Term Current Use of Insulin (Hcc) Hypertension Goal Bp (Blood Pressure) ANDlt; 140/90 Other and Unspecified Hyperlipidemia Depressive Disorder, Not Elsewhere Classified Ed (Erectile Dysfunction) Lower Urinary Tract Symptoms (Luts) History of Kidney Stones Microscopic Hematuria Diabetic Polyneuropathy Associated With Type 2 Diabetes Mellitus (Hcc) Acute Pain of Right Shoulder Nausea Vomiting Family History Problem Relation Age of Onset - Colon Cancer Father 53 - Diabetes Brother 52 - Diabetes Sister - Diabetes Mother 78 - Cancer Brother 49 lung - Diabetes Son Social History Marital status: Spouse name: Years of education: Number of children: 2 Social History Main Topics Smoking status: Never Smoker Smokeless status: Current User Types: Snuff Comment: snuff x 33 years Alcohol use: Yes Comment: rarely Drug use: No Sexual activity: Yes Partners with: Female Review of Systems Constitutional: Negative. Negative for chills, fever and malaise/fatigue. HENT: Positive for hearing loss (left ear). Negative for congestion, ear pain, sinus pain and sore throat. Respiratory: Negative for cough, sputum production, shortness of breath and wheezing. Cardiovascular: Negative for chest pain. Musculoskeletal: Negative for myalgias. Skin: Negative for rash. Neurological: Negative for headaches. Objective Physical Exam Constitutional: He is well-developed, well-nourished, and in no distress. HENT: Head: Normocephalic and atraumatic. Right Ear: Tympanic membrane, external ear and ear canal normal. Tympanic membrane is not injected, not erythematous, not retracted and not bulging. No middle ear effusion. Left Ear: Tympanic membrane, external ear and ear canal normal. Tympanic membrane is not injected, not erythematous, not retracted and not bulging. No middle ear effusion. Nose: Mucosal edema and rhinorrhea present. Right sinus exhibits no maxillary sinus tenderness and no frontal sinus tenderness. Left sinus exhibits no maxillary sinus tenderness and no frontal sinus tenderness. Mouth/Throat: Uvula is midline and mucous membranes are normal. Posterior oropharyngeal erythema present. No oropharyngeal exudate, posterior oropharyngeal edema or tonsillar abscesses. Eyes: Conjunctivae and EOM are normal. Pupils are equal, round, and reactive to light. Neck: Normal range of motion. Cardiovascular: Normal rate, regular rhythm and normal heart sounds. Pulmonary/Chest: Effort normal and breath sounds normal. No respiratory distress. He has no wheezes. He has no rales. Lymphadenopathy: Head (right side): No submental, no submandibular, no tonsillar, no preauricular and no posterior auricular adenopathy present. Head (left side): No submental, no submandibular, no tonsillar, no preauricular and no posterior auricular adenopathy present. He has no cervical adenopathy. Right cervical: No posterior cervical adenopathy present. Left cervical: No posterior cervical adenopathy present. Right: No supraclavicular adenopathy present. Left: No supraclavicular adenopathy present. Skin: Skin is warm and dry. Psychiatric: Affect normal. Nursing note and vitals reviewed. MDM: Fingerstick BS done - 405, BP elevated, and hearing loss, advised cannot r/o stroke since no signs of cerumen impaction, otitis or effusion - ER for further workup, report called to Dr. Johnson ASSESSMENT/PLAN: 1. Decreased hearing of left ear - ICD9: 389.9, ICD10: H91.92 (primary diagnosis) Due to nature of patient's complaint and lack of investigative tools available at [facility], recommend patient be seen at nearest ED for further work up of hearing loss r/o stroke. Patient transported to [facility] via car by . 2. Type 2 diabetes mellitus with complication, without long- term current use of insulin (HCC) - ICD9: 250.90, ICD10: E11.8 - GLUCOSE, BLOOD (POC) Diagnosis and treatment plan were discussed and questions were answered to the patient's satisfaction. Pt acknowledged understanding of concepts and follow up plan. Specific signs and symptoms that would indicate the need for higher level of care were discussed in detail warranting prompt ER evaluation. Lawanda Hamilton CNP Referring Provider: SELF [[id number]] Allergies As of Date: 11/19/2017 (No Known Allergies) Date Reviewed: 11/19/2017 Reviewed by: Francheska Carrington Ma - Fully Assessed Reason for Visit: MICKEY ear problem [Other] Cmt: feeling of being plugged AND ringing in R ear x 1 day Primary Visit Diagnosis:Decreased hearing of left ear [H91.92] Other Visit Diagnosis:Type 2 diabetes mellitus with complication, without long-term current use of insulin (HCC) [E11.8] Order(s):GLUCOSE, BLOOD (POC) [[id number]] Order #: [id number] GLUCOSE, BLOOD (POC) [[id number]] Order #: [id number]. #:[id number] Prescriptions as of 11/19/2017 Sig: METOPROLOL TARTRATE 25 MG TAB* Take 1 tablet by mouth twice * INSULIN ASPART U-100 100 UNI* Inject insulin three times da* INSULIN GLARGINE (U-100) 100 * Seventy five (75) units in th* RANITIDINE 300 MG TABLET Take 1 tablet by mouth daily * GABAPENTIN 600 MG TABLET Take 1 tablet by mouth three * BUPROPION XL 300 MG 24 HR TAB Take 1 tablet by mouth once d* AMLODIPINE 5 MG TABLET Take 1 tablet by mouth once d* HYDROCHLOROTHIAZIDE 25 MG TAB* Take 1 tablet by mouth once d* LISINOPRIL 40 MG TABLET Take 1 tablet by mouth once d* METFORMIN ER 500 MG TABLET,EX* Take one tablet by mouth twic* ATORVASTATIN 20 MG TABLET Take 1 tablet by mouth at bed* ASPIRIN 81 MG CHEWABLE TABLET Take 81 mg by mouth once adela* ACETAMINOPHEN ORAL Take by mouth. 1000 mg bid f* Problem List As Of Date 11/19/2017 Noted Resolved Uncontrolled type 2 diabetes mellitus with comp*INVALID FOR* More... Hypertension goal BP (blood pressure) < 140/90 *INVALID FOR* More... HYPERLIPIDEMIA NEC/NOS [E78.5] INVALID FOR* More... DEPRESSIVE DISORDER NEC [F32.9] INVALID FOR* More... ED (erectile dysfunction) [N52.9] INVALID FOR* Lower urinary tract symptoms (LUTS) [R39.9] INVALID FOR* History of kidney stones [Z87.442] INVALID FOR* Microscopic hematuria [R31.29] INVALID FOR* Diabetic polyneuropathy associated with type 2 *INVALID FOR* More... Acute pain of right shoulder [M25.511] INVALID FOR* More... Nausea [R11.0] INVALID FOR* More... Vomiting [R11.10] INVALID FOR* More... Encounter Status:Closed by LAWANDA HAMILTON CNP on 11/19/17 PROGRESS Observed: 11/12/2017 Status: COMPLETED Source: [place] 5:21 PM [facility] REPOS[facility] HNO ID: [id number] Author: Anderson Gaston Service: (none) Author Type: Physician Type: Progress Notes Filed: 11/12/2017 5:24 PM Note Text: Reason for Visit No chief complaint on file. Williams Burgos is a 46 year old male who presents here today for Above Complaints.. Health Maintenance DIABETIC FOOT EXAM LDL HBA1C HPI Uncontrolled type 2 diabetes mellitus with complication, with long-term current use of insulin ([facility]) Williams notes that he does not take his medication regularly. Sometimes it goes A week with out medication. He does that because he is tired of taking medication Other times he is hard headed and does not care. He can see enough to given him self insulin Hypertension goal BP (blood pressure) < 140/90 He has not taken metoprolol in the past 3 years Discussed his lack of motivation and his non compliance and how that is going to affect him He has retinopathy in the eyes on his already blind eyes. His kidneys are worse than before PAST MEDICAL HISTORY Diagnosis Date - Bronchitis - Depression - Detached retina - DM type 2, goal HbA1c < 7% ([facility]) - GERD (gastroesophageal reflux disease) - Hyperlipidemia - Kidney stones - PNA (pneumonia) - Unspecified essential hypertension - Vitamin D deficiency PAST SURGICAL HISTORY Procedure Laterality Date - CYSTOSCOPY,REMV CALCULUS,COMPLIC 1999 - PAST SURGICAL HISTORY OF Left 2012 AND 2014 removal eye fluid with instillation oil - REMOVAL GALLBLADDER 1998 Cholecystectomy FAMILY HISTORY Problem Relation Age of Onset - Colon Cancer Father 53 - Diabetes Brother 52 - Diabetes Sister - Diabetes Mother 78 - Cancer Brother 49 lung - Diabetes Son Social History Substance Use Topics - Smoking status: Never Smoker - Smokeless tobacco: Current User Types: Snuff Comment: snuff x 33 years - Alcohol use Yes Comment: rarely Past medical history, appointments, medications, allergies reviewed. Pertinent Lab/Diagnostic Studies are reviewed and discussed today Current Outpatient Prescriptions: - peg 3350-electrolytes (COLYTE) 240-22.72-6.72 -5.84 gram solution - metoprolol tartrate, short acting, (LOPRESSOR) 25 mg tablet - insulin aspart (NOVOLOG FLEXPEN) 100 unit/mL inpn - insulin glargine (LANTUS SOLOSTAR) 100 unit/mL (3 mL) inpn - Ranitidine HCl (ZANTAC) 300 mg tablet - gabapentin (NEURONTIN) 600 mg tablet - buPROPion XL (WELLBUTRIN XL) 300 mg 24 hr tablet - amLODIPine (NORVASC) 5 mg tablet - hydroCHLOROthiazide (HYDRODIURIL, ESIDRIX) 25 mg tablet - lisinopril (ZESTRIL, PRINIVIL) 40 mg tablet - metFORMIN ER (GLUCOPHAGE XR) 500 mg 24 hr tablet - atorvastatin (LIPITOR) 20 mg tablet - aspirin 81 mg chewable tablet - ACETAMINOPHEN ORAL Review of Systems CONSTITUTIONAL: No fevers, chills night sweats, unintended weight loss CARDIOVASCULAR: No chest pain, dyspnea, palpitations, orthopnea, PND, ankle edema. PULM: No dyspnea, unexplained cough. GI: No dysphagia/odynophagia, problematic reflux, constipation, diarrhea, changes in stool habits, hematochezia, melena. : No new urinary complaints, including dysuria, gross hematuria or pyuria. NEURO: No new balance problems, peripheral weakness/paresthesias or numbness of concern. Physical Exam BP 170/88 (BP Site: Left Arm, BP Position: Sitting, BP Cuff Size: Large Adult) Pulse 97 Resp 12 Ht 172.7 cm (5' 8) Wt 97.5 kg (215 lb) SpO2 98% BMI 32.69 kg/m2 General appearance: Well appearing, alert, in no acute distress, well nourished. Skin: Skin color, texture, turgor normal, no suspicious rashes or lesions Head: Normocephalic, no masses, lesions, tenderness or abnormalities Eyes: Anicteric sclera. Pupils are equally round and reactive to light. Extraocular movements are intact. Lungs: Lungs clear to auscultation. No wheezing, rhonchi, rales Heart: RRR without murmur, gallop, or rubs. Feet: Shoes and socks removed, No deformities, ulcers, calluses, normal distal pulses and not sensitive to monofilament in almost all areas of the foot ASSESSMENT/PLAN: 1. Diabetic polyneuropathy associated with type 2 diabetes mellitus (HCC) - ICD9: 250.60, 357.2, ICD10: E11.42 (primary diagnosis) See hpi He promised to do better, Will see pharmacist in 2 weeks after taking metoprolol for both BP and sugar control 2. Uncontrolled type 2 diabetes mellitus with complication, with long-term current use of insulin (HCC) - ICD9: 250.82, V58.67, ICD10: E11.8, E11.65, Z79.4 Needs blood work discussed the importance of giving us regular blood work - HGB A1C - ALBUMIN/CREAT RATIO RND UR - CBC + DIFF - COMP METABOLIC PANEL - LIPID PANEL BASIC 3. Essential hypertension - ICD9: 401.9, ICD10: I10 - good control - Recommended regular aerobic exercise. - Recommend home blood pressure monitoring, to bring results in on next visit - Goal of BP <130/80 - METOPROLOL TARTRATE 25 MG TABLET 4. Hypertension goal BP (blood pressure) < 140/90 - ICD9: 401.9, ICD10: I10 - good control - Recommended regular aerobic exercise. - Recommend home blood pressure monitoring, to bring results in on next visit - Goal of BP <130/80 ANDERSON GASTON MD CNOV Observed: 11/12/2017 Status: COMPLETED Source: [place] 4:00 PM [facility] REPOSITORY Office Visit ([facility]) WILLIAMS BURGOS ([id number]) 1970 M Date Time Provider Department 11/12/17 4:00 PM ANDERSON GASTON [facility] During your visit today, we recorded the following information about you: Pulse Respiration Blood pressure Weight 97/minute 12/minute 170/88 97.5 kg Height 1.727 m ANDERSON GASTON MD 11/12/2017 4:36 PM Sam Williams notes that he does not take his medication regularly. Sometimes it goes A week with out medication. He does that because he is tired of taking medication Other times he is hard headed and does not care. He can see enough to given him self insulin ANDERSON GASTON MD 11/12/2017 4:43 PM Written He has not taken metoprolol in the past 3 years ANDERSON GASTON MD 11/12/2017 5:24 PM Signed Reason for Visit No chief complaint on file. Williams Burgos is a 46 year old male who presents here today for Above Complaints.. Health Maintenance DIABETIC FOOT EXAM LDL HBA1C HPI Uncontrolled type 2 diabetes mellitus with complication, with long-term current use of insulin ([facility]) Williams notes that he does not take his medication regularly. Sometimes it goes A week with out medication. He does that because he is tired of taking medication Other times he is hard headed and does not care. He can see enough to given him self insulin Hypertension goal BP (blood pressure) ANDlt; 140/90 He has not taken metoprolol in the past 3 years Discussed his lack of motivation and his non compliance and how that is going to affect him He has retinopathy in the eyes on his already blind eyes. His kidneys are worse than before PAST MEDICAL HISTORY Diagnosis Date - Bronchitis - Depression - Detached retina - DM type 2, goal HbA1c ANDlt; 7% ([facility]) - GERD (gastroesophageal reflux disease) - Hyperlipidemia - Kidney stones - PNA (pneumonia) - Unspecified essential hypertension - Vitamin D deficiency PAST SURGICAL HISTORY Procedure Laterality Date - CYSTOSCOPY,REMV CALCULUS,COMPLIC 1999 - PAST SURGICAL HISTORY OF Left 2012 ANDamp; 2014 removal eye fluid with instillation oil - REMOVAL GALLBLADDER 1998 Cholecystectomy FAMILY HISTORY Problem Relation Age of Onset - Colon Cancer Father 53 - Diabetes Brother 52 - Diabetes Sister - Diabetes Mother 78 - Cancer Brother 49 lung - Diabetes Son Social History Substance Use Topics - Smoking status: Never Smoker - Smokeless tobacco: Current User Types: Snuff Comment: snuff x 33 years - Alcohol use Yes Comment: rarely Past medical history, appointments, medications, allergies reviewed. Pertinent Lab/Diagnostic Studies are reviewed and discussed today Current Outpatient Prescriptions: - peg 3350-electrolytes (COLYTE) 240-22.72-6.72 -5.84 gram solution - metoprolol tartrate, short acting, (LOPRESSOR) 25 mg tablet - insulin aspart (NOVOLOG FLEXPEN) 100 unit/mL inpn - insulin glargine (LANTUS SOLOSTAR) 100 unit/mL (3 mL) inpn - Ranitidine HCl (ZANTAC) 300 mg tablet - gabapentin (NEURONTIN) 600 mg tablet - buPROPion XL (WELLBUTRIN XL) 300 mg 24 hr tablet - amLODIPine (NORVASC) 5 mg tablet - hydroCHLOROthiazide (HYDRODIURIL, ESIDRIX) 25 mg tablet - lisinopril (ZESTRIL, PRINIVIL) 40 mg tablet - metFORMIN ER (GLUCOPHAGE XR) 500 mg 24 hr tablet - atorvastatin (LIPITOR) 20 mg tablet - aspirin 81 mg chewable tablet - ACETAMINOPHEN ORAL Review of Systems CONSTITUTIONAL: No fevers, chills night sweats, unintended weight loss CARDIOVASCULAR: No chest pain, dyspnea, palpitations, orthopnea, PND, ankle edema. PULM: No dyspnea, unexplained cough. GI: No dysphagia/odynophagia, problematic reflux, constipation, diarrhea, changes in stool habits, hematochezia, melena. : No new urinary complaints, including dysuria, gross hematuria or pyuria. NEURO: No new balance problems, peripheral weakness/paresthesias or numbness of concern. Physical Exam BP 170/88 (BP Site: Left Arm, BP Position: Sitting, BP Cuff Size: Large Adult) Pulse 97 Resp 12 Ht 172.7 cm (5' 8ANDquot;) Wt 97.5 kg (215 lb) SpO2 98% BMI 32.69 kg/m2 General appearance: Well appearing, alert, in no acute distress, well nourished. Skin: Skin color, texture, turgor normal, no suspicious rashes or lesions Head: Normocephalic, no masses, lesions, tenderness or abnormalities Eyes: Anicteric sclera. Pupils are equally round and reactive to light. Extraocular movements are intact. Lungs: Lungs clear to auscultation. No wheezing, rhonchi, rales Heart: RRR without murmur, gallop, or rubs. Feet: Shoes and socks removed, No deformities, ulcers, calluses, normal distal pulses and not sensitive to monofilament in almost all areas of the foot ASSESSMENT/PLAN: 1. Diabetic polyneuropathy associated with type 2 diabetes mellitus (HCC) - ICD9: 250.60, 357.2, ICD10: E11.42 (primary diagnosis) See hpi He promised to do better, Will see pharmacist in 2 weeks after taking metoprolol for both BP and sugar control 2. Uncontrolled type 2 diabetes mellitus with complication, with long-term current use of insulin (HCC) - ICD9: 250.82, V58.67, ICD10: E11.8, E11.65, Z79.4 Needs blood work discussed the importance of giving us regular blood work - HGB A1C - ALBUMIN/CREAT RATIO RND UR - CBC + DIFF - COMP METABOLIC PANEL - LIPID PANEL BASIC 3. Essential hypertension - ICD9: 401.9, ICD10: I10 - good control - Recommended regular aerobic exercise. - Recommend home blood pressure monitoring, to bring results in on next visit - Goal of BP ANDlt;130/80 - METOPROLOL TARTRATE 25 MG TABLET 4. Hypertension goal BP (blood pressure) ANDlt; 140/90 - ICD9: 401.9, ICD10: I10 - good control - Recommended regular aerobic exercise. - Recommend home blood pressure monitoring, to bring results in on next visit - Goal of BP ANDlt;130/80 ANDERSON GASTON MD Referring Provider: ANDERSON GASTON [[id number]] Allergies As of Date: 11/12/2017 (No Known Allergies) Date Reviewed: 11/12/2017 Reviewed by: Catalina Lala LPN - Fully Assessed Primary Visit Diagnosis:Diabetic polyneuropathy associated with type 2 diabetes mellitus (HCC) [E11.42] Other Visit Diagnoses:Uncontrolled type 2 diabetes mellitus with complication, with long-term current use of insulin (HCC) [E11.8, E11.65, Z79.4] Essential hypertension [I10] Hypertension goal BP (blood pressure) < 140/90 [I10] Order(s):HGB A1C [ZREOA4V] Order #: [id number] FUTURE ALBUMIN/CREAT RATIO RND UR [SQUACR] Order #: [id number] FUTURE metoprolol tartrate, short acting, (LOPRESSOR) 25 mg tabletTake 1 tablet by mouth twice daily.Disp: 60 tabletRfl: 3 CBC + DIFF [SQCBCDIF] Order #: [id number] FUTURE COMP METABOLIC PANEL [SQCMP] Order #: [id number] FUTURE LIPID PANEL BASIC [SQLIPB] Order #: [id number] FUTURE Prescriptions as of 11/12/2017 Sig: PEG 3350 240 GRAM-ELECTROLYTE* Take 4,000 mL by mouth one ti* METOPROLOL TARTRATE 25 MG TAB* Take 1 tablet by mouth twice * INSULIN ASPART U-100 100 UNI* Inject insulin three times da* INSULIN GLARGINE (U-100) 100 * Seventy five (75) units in th* RANITIDINE 300 MG TABLET Take 1 tablet by mouth daily * GABAPENTIN 600 MG TABLET Take 1 tablet by mouth three * BUPROPION XL 300 MG 24 HR TAB Take 1 tablet by mouth once d* AMLODIPINE 5 MG TABLET Take 1 tablet by mouth once d* HYDROCHLOROTHIAZIDE 25 MG TAB* Take 1 tablet by mouth once d* LISINOPRIL 40 MG TABLET Take 1 tablet by mouth once d* METFORMIN ER 500 MG TABLET,EX* Take one tablet by mouth twic* ATORVASTATIN 20 MG TABLET Take 1 tablet by mouth at bed* ASPIRIN 81 MG CHEWABLE TABLET Take 81 mg by mouth once adela* ACETAMINOPHEN ORAL Take by mouth. 1000 mg bid f* Problem List As Of Date 11/12/2017 Noted Resolved Uncontrolled type 2 diabetes mellitus with comp*INVALID FOR* More... Hypertension goal BP (blood pressure) < 140/90 *INVALID FOR* More... HYPERLIPIDEMIA NEC/NOS [E78.5] INVALID FOR* More... DEPRESSIVE DISORDER NEC [F32.9] INVALID FOR* More... ED (erectile dysfunction) [N52.9] INVALID FOR* Lower urinary tract symptoms (LUTS) [R39.9] INVALID FOR* History of kidney stones [Z87.442] INVALID FOR* Microscopic hematuria [R31.29] INVALID FOR* Diabetic polyneuropathy associated with type 2 *INVALID FOR* More... Acute pain of right shoulder [M25.511] INVALID FOR* More... Prescriptions ordered this encounter Disp Refills Start End METOPROLOL TARTRATE 25 MG TABLET 60 t* 3 11/12/2017 Route: ORAL Sig: Take 1 tablet by mouth twice daily. Medications Discontinued During This Encounter metoprolol tartrate, short acting, (* 60 t* 3 05/11/2017 11/12/2017 Route: ORAL Sig: Take 1 tablet by mouth twice daily. Disc: Reason for discontinue is not on file. Encounter Status:Closed by ANDERSON GASTON MD on 11/12/17 HISTORY PHYSICAL Observed: 11/12/2017 Status: COMPLETED Source: [place] 9:05 AM [facility] [facility] REPOSITORY HNO ID: [id number] Author: Timmy Chappell Service: (none) Author Type: Nurse Practitioner Type: HANDP Filed: 11/12/2017 6:17 PM Note Text: Williams Burgos a 46 year old male who is a consultation requested by Frances Kaufman NP, for an opinion regarding upper abdominal pain as well as altered bowel habits. My final recommendations will be communicated back to the requesting provider by way of shared Medical record. The patient has not been seen previously. The patient reports a family history of colon cancer in that his father was diagnosed with the disease at age 53. He shortly after diagnosis. Component Latest Ref Rng AND Units 05/03/2017 Hemoglobin A1C 4.3 - 5.6 % 11.7 (H) Estimated Average Glucose mg/dL >240 Component Latest Ref Rng AND Units 05/03/2017 Protein, Total 6.3 - 8.0 g/dL 6.9 Albumin 3.9 - 4.9 g/dL 3.5 (L) Calcium 8.5 - 10.2 mg/dL 9.6 Bilirubin, Total 0.2 - 1.3 mg/dL 0.6 Alkaline Phosphatase 36 - 108 U/L 129 (H) AST 14 - 40 U/L 19 Glucose 74 - 99 mg/dL 318 (H) BUN 9 - 24 mg/dL 27 (H) Creatinine 0.73 - 1.22 mg/dL 1.74 (H) Sodium 136 - 144 mmol/L 140 Potassium 3.7 - 5.1 mmol/L 4.1 Chloride 97 - 105 mmol/L 96 (L) CO2 22 - 30 mmol/L 25 Anion Gap 9 - 18 mmol/L 19 (H) ALT 10 - 54 U/L 27 eGFR- 51 eGFR-All Other Races . 42 Component Latest Ref Rng AND Units 05/03/2017 Creatinine, Ur Random (UCRR) 20 - 300 mg/dL 66.6 Albumin, Urine Random 0.0 - 23.0 mg/L 3324.2 (H) Albumin/Creat Ratio 0 - 30 mg/g 4991 (H) The patient saw Frances on 10/24/17. That note has been reviewed and part as follows: presents today for vomiting at least twice daily for 6 months. Daily in the mornings he will cough, sneeze and blow his nose which makes him gag and have dry heaves but no emesis. Vomits about 15 to 20 minutes after eating later in the day, time of day varies. Emesis described as unndigested food. No particular foods that cause vomiting. No nausea prior to vomiting. Good appetite otherwise. Positive for LUQ abdominal pain for for 2 days. Pain is constant. Described as aching and rated 6/10 currently. Denies fever, chills, constipation, black/bloody stools, heartburn/reflux symptoms and pain that wakes him up from sleep. Nothing seems to make pain worse and alleviated by laying down. He has had this pain intermittently before but never this bad. Also reports diarrhea for more than a year. Occurs immediately every time he eats. Unsure of amount. Does have very mild cramping right before diarrhea. Diet- Eats fried/greasy foods daily. Uncontrolled diabetes. Checks blood sugars every couple days around lunch time-usually in the 200's sometimes higher in the 300's to 400's. Taking all medications as prescribed including Metformin, unsure if diarrhea started before or after Metformin. Was prescribed Reglan previously but unsure what for. He had stopped taking due to upset stomach. RUQ US: 10/28/17 IMPRESSION: No acute sonographic abnormalities identified, within the limitation of the study. ?The gallbladder is nonvisualized. 1.2 cm right renal cyst/cystic lesion. Gastric emptying study: 10/31/17 IMPRESSION: NORMAL RATE OF GASTRIC EMPTYING OF A SOLID MEAL. Last 10 Encounter Wt Readings: Date: Wt: 11/12/2017 98.4 kg (217 lb) 10/24/2017 97.5 kg (215 lb) 08/20/2017 92.1 kg (203 lb) 08/18/2017 92.5 kg (204 lb) 05/21/2017 92.1 kg (203 lb) 05/10/2017 94 kg (207 lb 3.2 oz) 05/03/2017 93.4 kg (206 lb) 04/26/2017 98 kg (216 lb) 01/04/2017 92.5 kg (204 lb) 11/16/2016 95.3 kg (210 lb) Presenting complaint: The patient presents today reporting onset of upper and lower symptoms started about the same time. Symptoms have worsened. Now vomiting daily - can be twice a day. He tells me the worst one is in the morning. He starts with coughing shortly after getting up. Coughing leads to vomiting. Vomiting later in the day can be shortly after eating. Having a bowel movement about every two hours. This can start before eating. No nocturnal stooling. He won't eat if he is going anywhere, since he will have a bowel movement shortly after eating. He has tried PeptoBismol with intermittent effect. No blood or black stool. The patient experiences upper abdominal pain. He shows me the epigastric region. Pain is ever present. Eating may cause pain. REVIEW OF SYSTEMS: GENERAL: No weight loss, malaise or fevers RESPIRATORY: History of pneumonia. On going morning cough. Question of allergies. CARDIOVASCULAR: Hypertension GI: The patient states that his appetite has been adequate. He does get hungry. There has been some nausea, some vomiting. He denies dysphagia and denies odynophagia. There has not been indigestion or heartburn. There has been regurgitation. Bowel habits have been irregular. There has been diarrhea. There has occasionally been constipation. The patient denies rectal bleeding. There has not been melena. Daily abdominal pain that is located in the epigastric region. PSYCH: Positive for depression: taking Wellbutrin. HEMATOLOGY/LYMPHOLOGY Negative for prolonged bleeding, bruising easily or swollen nodes ENDOCRINE: Positive for diabetes mellitus on insulin. Poorly controlled. NEURO: Numbness or tingling of both legs and feet. All other reviewed and negative other than HPI. PAST MEDICAL HISTORY Diagnosis Date - Bronchitis - Depression - Detached retina - DM type 2, goal HbA1c < 7% (HCC) - GERD (gastroesophageal reflux disease) - Hyperlipidemia - Kidney stones - PNA (pneumonia) - Unspecified essential hypertension - Vitamin D deficiency PAST SURGICAL HISTORY Procedure Laterality Date - CYSTOSCOPY,REMV CALCULUS,COMPLIC 1999 - PAST SURGICAL HISTORY OF Left 2012 AND 2014 removal eye fluid with instillation oil - REMOVAL GALLBLADDER 1998 Cholecystectomy FAMILY HISTORY Problem Relation Age of Onset - Colon Cancer Father 53 - Diabetes Brother 52 - Diabetes Sister - Diabetes Mother 78 - Cancer Brother 49 lung - Diabetes Son Current Outpatient Prescriptions: insulin aspart (NOVOLOG FLEXPEN) 100 unit/mL inpn Inject insulin three times daily at first bite of food. Take 20 w/breakfast, 15 w/lunch, 20 w/supper. Disp: 10 Pen Rfl: 11 insulin glargine (LANTUS SOLOSTAR) 100 unit/mL (3 mL) inpn Seventy five (75) units in the evening. Disp: Rfl: Ranitidine HCl (ZANTAC) 300 mg tablet Take 1 tablet by mouth daily before dinner. Disp: 30 tablet Rfl: 1 metoprolol tartrate, short acting, (LOPRESSOR) 25 mg tablet Take 1 tablet by mouth twice daily. Disp: 60 tablet Rfl: 3 gabapentin (NEURONTIN) 600 mg tablet Take 1 tablet by mouth three times daily. Disp: 90 tablet Rfl: 1 buPROPion XL (WELLBUTRIN XL) 300 mg 24 hr tablet Take 1 tablet by mouth once daily. Disp: 30 tablet Rfl: 3 amLODIPine (NORVASC) 5 mg tablet Take 1 tablet by mouth once daily. Indications: hypertension Disp: 30 tablet Rfl: 3 hydroCHLOROthiazide (HYDRODIURIL, ESIDRIX) 25 mg tablet Take 1 tablet by mouth once daily. Disp: 30 tablet Rfl: 2 lisinopril (ZESTRIL, PRINIVIL) 40 mg tablet Take 1 tablet by mouth once daily. Indications: hypertension Disp: 30 tablet Rfl: 2 albuterol HFA (VENTOLIN HFA) 90 mcg/actuation inhaler Inhale 2 Puffs as instructed every 4 hours as needed for Wheezing/Shortness of Breath. Disp: 1 Inhaler Rfl: 0 metFORMIN ER (GLUCOPHAGE XR) 500 mg 24 hr tablet Take one tablet by mouth twice daily with meals Disp: 60 tablet Rfl: 3 atorvastatin (LIPITOR) 20 mg tablet Take 1 tablet by mouth at bedtime as needed. Disp: 30 tablet Rfl: 2 metoclopramide HCl (REGLAN) 10 mg tablet Take 10 mg by mouth three times daily. With meals Disp: Rfl: aspirin 81 mg chewable tablet Take 81 mg by mouth once daily. Disp: Rfl: ACETAMINOPHEN ORAL Take by mouth. 1000 mg bid for pain / aches Disp: Rfl: No current facility-administered medications for this visit. SOCIAL HISTORY: Patient is . He used smokeless tobacco products for 33 years and reports his alcohol use as never. PHYSICAL EXAMINATION: Blood pressure (!) 204/131, pulse 97, height 172.7 cm (5' 8), weight 98.4 kg (217 lb). General Appearance: Well appearing, alert, in no acute distress, well-hydrated, well nourished. Skin: Skin color, texture, turgor normal, no suspicious rashes or lesions. Eyes: Anicteric sclera. Neck: Supple, no adenopathy; thyroid symmetric, normal size. Lungs: Lungs clear to auscultation. No wheezing, rhonchi, rales. Heart: RRR without murmur,. Abdomen: Abdomen soft, non-tender. Bowel sounds normal. No masses, organomegaly. Extremities: No deformities Nonpitting edema. Peripheral Pulses: Normal. Impression: nausea and vomiting 2)epigastric pain 3)altered bowel habits - diarrhea Diabetes poorly controlled Hypertension poorly controlled Plan: The patient will be scheduled for an upper endoscopy as well as a colonoscopy. Preparation for the procedures, using GoLytely as the laxative, have been explained in detail. The risks, benefits, anticipated outcomes and possible complications were mentioned. I explained the procedure in understandable terms and the patient was given printed material concerning the planned procedure. The patient had the opportunity to ask questions concerning the planned procedure. The patient freely consents to the planned procedure. The patient is encouraged to call with any questions or concerns, or should there be any change in health status between now and the scheduled procedure. I have called Dr. Gaston's nurse regarding his elevated BP. The patient is to see Dr. Gaston today at 4:00. I have personally interviewed and examined this patient. I have read the information that the MA documented in this encounter. This visit was at least 30 minutes in length with a majority of the time spent in review of the past records with the patient, discussion and counseling. Timmy Chappell RN CUSTOM STUDIO COORDINATOR CNOV Observed: 11/12/2017 Status: COMPLETED Source: [place] 9:00 AM [facility] REPOSITORY Office Visit ([facility]) WILLIAMS BURGOS ([id number]) 1970 M Date Time Provider Department 11/12/17 9:00 AM TIMMY CHAPPELL ([facility]) [facility] During your visit today, we recorded the following information about you: Pulse Blood pressure Weight Height 97/minute 204/131 98.4 kg 1.727 m Edwige Pike MA 11/12/2017 9:04 AM Signed Pt states did not take BP medicine this morning. Edwige Chappell, RN CUSTOM STUDIO COORDINATOR 11/12/2017 6:17 PM Signed Williams Burgos a 46 year old male who is a consultation requested by Frances Kaufman NP, for an opinion regarding upper abdominal pain as well as altered bowel habits. My final recommendations will be communicated back to the requesting provider by way of shared Medical record. The patient has not been seen previously. The patient reports a family history of colon cancer in that his father was diagnosed with the disease at age 53. He shortly after diagnosis. Component Latest Ref Rng ANDamp; Units 05/03/2017 Hemoglobin A1C 4.3 - 5.6 % 11.7 (H) Estimated Average Glucose mg/dL ANDgt;240 Component Latest Ref Rng ANDamp; Units 05/03/2017 Protein, Total 6.3 - 8.0 g/dL 6.9 Albumin 3.9 - 4.9 g/dL 3.5 (L) Calcium 8.5 - 10.2 mg/dL 9.6 Bilirubin, Total 0.2 - 1.3 mg/dL 0.6 Alkaline Phosphatase 36 - 108 U/L 129 (H) AST 14 - 40 U/L 19 Glucose 74 - 99 mg/dL 318 (H) BUN 9 - 24 mg/dL 27 (H) Creatinine 0.73 - 1.22 mg/dL 1.74 (H) Sodium 136 - 144 mmol/L 140 Potassium 3.7 - 5.1 mmol/L 4.1 Chloride 97 - 105 mmol/L 96 (L) CO2 22 - 30 mmol/L 25 Anion Gap 9 - 18 mmol/L 19 (H) ALT 10 - 54 U/L 27 eGFR- 51 eGFR-All Other Races . 42 Component Latest Ref Rng ANDamp; Units 05/03/2017 Creatinine, Ur Random (UCRR) 20 - 300 mg/dL 66.6 Albumin, Urine Random 0.0 - 23.0 mg/L 3324.2 (H) Albumin/Creat Ratio 0 - 30 mg/g 4991 (H) The patient saw Frances on 10/24/17. That note has been reviewed and part as follows: presents today for vomiting at least twice daily for 6 months. Daily in the mornings he will cough, sneeze and blow his nose which makes him gag and have dry heaves but no emesis. Vomits about 15 to 20 minutes after eating later in the day, time of day varies. Emesis described as unndigested food. No particular foods that cause vomiting. No nausea prior to vomiting. Good appetite otherwise. Positive for LUQ abdominal pain for for 2 days. Pain is constant. Described as aching and rated 6/10 currently. Denies fever, chills, constipation, black/bloody stools, heartburn/reflux symptoms and pain that wakes him up from sleep. Nothing seems to make pain worse and alleviated by laying down. He has had this pain intermittently before but never this bad. Also reports diarrhea for more than a year. Occurs immediately every time he eats. Unsure of amount. Does have very mild cramping right before diarrhea. Diet- Eats fried/greasy foods daily. Uncontrolled diabetes. Checks blood sugars every couple days around lunch time-usually in the 200's sometimes higher in the 300's to 400's. Taking all medications as prescribed including Metformin, unsure if diarrhea started before or after Metformin. Was prescribed Reglan previously but unsure what for. He had stopped taking due to ANDquot;upset stomach.ANDquot; RUQ US: 10/28/17 IMPRESSION: No acute sonographic abnormalities identified, within the limitation of the study. ?The gallbladder is nonvisualized. 1.2 cm right renal cyst/cystic lesion. Gastric emptying study: 10/31/17 IMPRESSION: NORMAL RATE OF GASTRIC EMPTYING OF A SOLID MEAL. Last 10 Encounter Wt Readings: Date: Wt: 11/12/2017 98.4 kg (217 lb) 10/24/2017 97.5 kg (215 lb) 08/20/2017 92.1 kg (203 lb) 08/18/2017 92.5 kg (204 lb) 05/21/2017 92.1 kg (203 lb) 05/10/2017 94 kg (207 lb 3.2 oz) 05/03/2017 93.4 kg (206 lb) 04/26/2017 98 kg (216 lb) 01/04/2017 92.5 kg (204 lb) 11/16/2016 95.3 kg (210 lb) Presenting complaint: The patient presents today reporting onset of upper and lower symptoms started about the same time. Symptoms have worsened. Now vomiting daily - can be twice a day. He tells me ANDquot;the worst one is in the morningANDquot;. He starts with coughing shortly after getting up. Coughing leads to vomiting. Vomiting later in the day can be shortly after eating. Having a bowel movement ANDquot;about every two hoursANDquot;. This can start before eating. No nocturnal stooling. He won't eat if he is going anywhere, since he will have a bowel movement shortly after eating. He has tried PeptoBismol with intermittent effect. No blood or black stool. The patient experiences upper abdominal pain. He shows me the epigastric region. Pain is ever present. Eating may cause pain. REVIEW OF SYSTEMS: GENERAL: No weight loss, malaise or fevers RESPIRATORY: History of pneumonia. On going morning cough. Question of allergies. CARDIOVASCULAR: Hypertension GI: The patient states that his appetite has been adequate. He does get hungry. There has been some nausea, some vomiting. He denies dysphagia and denies odynophagia. There has not been indigestion or heartburn. There has been regurgitation. Bowel habits have been irregular. There has been diarrhea. There has occasionally been constipation. The patient denies rectal bleeding. There has not been melena. Daily abdominal pain that is located in the epigastric region. PSYCH: Positive for depression: taking Wellbutrin. HEMATOLOGY/LYMPHOLOGY Negative for prolonged bleeding, bruising easily or swollen nodes ENDOCRINE: Positive for diabetes mellitus on insulin. Poorly controlled. NEURO: Numbness or tingling of both legs and feet. All other reviewed and negative other than HPI. PAST MEDICAL HISTORY Diagnosis Date - Bronchitis - Depression - Detached retina - DM type 2, goal HbA1c ANDlt; 7% (HCC) - GERD (gastroesophageal reflux disease) - Hyperlipidemia - Kidney stones - PNA (pneumonia) - Unspecified essential hypertension - Vitamin D deficiency PAST SURGICAL HISTORY Procedure Laterality Date - CYSTOSCOPY,REMV CALCULUS,COMPLIC 1999 - PAST SURGICAL HISTORY OF Left 2012 ANDamp; 2015 removal eye fluid with instillation oil - REMOVAL GALLBLADDER 1998 Cholecystectomy FAMILY HISTORY Problem Relation Age of Onset - Colon Cancer Father 53 - Diabetes Brother 52 - Diabetes Sister - Diabetes Mother 78 - Cancer Brother 49 lung - Diabetes Son Current Outpatient Prescriptions: insulin aspart (NOVOLOG FLEXPEN) 100 unit/mL inpn Inject insulin three times daily at first bite of food. Take 20 w/breakfast, 15 w/lunch, 20 w/supper. Disp: 10 Pen Rfl: 11 insulin glargine (LANTUS SOLOSTAR) 100 unit/mL (3 mL) inpn Seventy five (75) units in the evening. Disp: Rfl: Ranitidine HCl (ZANTAC) 300 mg tablet Take 1 tablet by mouth daily before dinner. Disp: 30 tablet Rfl: 1 metoprolol tartrate, short acting, (LOPRESSOR) 25 mg tablet Take 1 tablet by mouth twice daily. Disp: 60 tablet Rfl: 3 gabapentin (NEURONTIN) 600 mg tablet Take 1 tablet by mouth three times daily. Disp: 90 tablet Rfl: 1 buPROPion XL (WELLBUTRIN XL) 300 mg 24 hr tablet Take 1 tablet by mouth once daily. Disp: 30 tablet Rfl: 3 amLODIPine (NORVASC) 5 mg tablet Take 1 tablet by mouth once daily. Indications: hypertension Disp: 30 tablet Rfl: 3 hydroCHLOROthiazide (HYDRODIURIL, ESIDRIX) 25 mg tablet Take 1 tablet by mouth once daily. Disp: 30 tablet Rfl: 2 lisinopril (ZESTRIL, PRINIVIL) 40 mg tablet Take 1 tablet by mouth once daily. Indications: hypertension Disp: 30 tablet Rfl: 2 albuterol HFA (VENTOLIN HFA) 90 mcg/actuation inhaler Inhale 2 Puffs as instructed every 4 hours as needed for Wheezing/Shortness of Breath. Disp: 1 Inhaler Rfl: 0 metFORMIN ER (GLUCOPHAGE XR) 500 mg 24 hr tablet Take one tablet by mouth twice daily with meals Disp: 60 tablet Rfl: 3 atorvastatin (LIPITOR) 20 mg tablet Take 1 tablet by mouth at bedtime as needed. Disp: 30 tablet Rfl: 2 metoclopramide HCl (REGLAN) 10 mg tablet Take 10 mg by mouth three times daily. With meals Disp: Rfl: aspirin 81 mg chewable tablet Take 81 mg by mouth once daily. Disp: Rfl: ACETAMINOPHEN ORAL Take by mouth. 1000 mg bid for pain / aches Disp: Rfl: No current facility-administered medications for this visit. SOCIAL HISTORY: Patient is . He used smokeless tobacco products for 33 years and reports his alcohol use as never. PHYSICAL EXAMINATION: Blood pressure (!) 204/131, pulse 97, height 172.7 cm (5' 8ANDquot;), weight 98.4 kg (217 lb). General Appearance: Well appearing, alert, in no acute distress, well-hydrated, well nourished. Skin: Skin color, texture, turgor normal, no suspicious rashes or lesions. Eyes: Anicteric sclera. Neck: Supple, no adenopathy; thyroid symmetric, normal size. Lungs: Lungs clear to auscultation. No wheezing, rhonchi, rales. Heart: RRR without murmur,. Abdomen: Abdomen soft, non-tender. Bowel sounds normal. No masses, organomegaly. Extremities: No deformities Nonpitting edema. Peripheral Pulses: Normal. Impression: nausea and vomiting 2)epigastric pain 3)altered bowel habits - diarrhea Diabetes poorly controlled Hypertension poorly controlled Plan: The patient will be scheduled for an upper endoscopy as well as a colonoscopy. Preparation for the procedures, using GoLytely as the laxative, have been explained in detail. The risks, benefits, anticipated outcomes and possible complications were mentioned. I explained the procedure in understandable terms and the patient was given printed material concerning the planned procedure. The patient had the opportunity to ask questions concerning the planned procedure. The patient freely consents to the planned procedure. The patient is encouraged to call with any questions or concerns, or should there be any change in health status between now and the scheduled procedure. I have called Dr. Gaston's nurse regarding his elevated BP. The patient is to see Dr. Gaston today at 4:00. I have personally interviewed and examined this patient. I have read the information that the MA documented in this encounter. This visit was at least 30 minutes in length with a majority of the time spent in review of the past records with the patient, discussion and counseling. ANDER Hook CNP, RN CUSTOM STUDIO COORDINATOR 11/12/2017 9:52 AM Signed Please follow the provided instructions for upper endoscopy and colonoscopy. You will be using GoLytely as the laxative during the preparation. You may start the laxative as early as 1:00 in the afternoon. You will have the deeper sedation we call MAC. This will be done in [place]. The equipment scheduler will contact you to schedule your procedures. Referring Provider: FRANCES KAUFMAN (CUSTOM STUDIO COORDINATOR) [[id number]] Allergies As of Date: 11/12/2017 (No Known Allergies) Date Reviewed: 11/12/2017 Reviewed by: Catalina Entner AUTO TECH - Fully Assessed Reason for Visit: Abdominal Pain [1] Primary Visit Diagnosis:Nausea and vomiting, intractability of vomiting not specified, unspecified vomiting type [R11.2] Other Visit Diagnoses:Epigastric pain [R10.13] Diarrhea, unspecified type [R19.7] Order(s):EGD GEN ANES [[id number]] Order #: [id number] FUTURE COLONOSCOPY GEN ANES [[id number]] Order #: [id number] FUTURE peg 3350-electrolytes (COLYTE) 240-22.72-6.72 -5.84 gram solutionTake 4,000 mL by mouth one time only for 1 dose.Disp: 1 BottleRfl: 0 Prescriptions as of 11/12/2017 Sig: PEG 3350 240 GRAM-ELECTROLYTE* Take 4,000 mL by mouth one ti* INSULIN ASPART U-100 100 UNI* Inject insulin three times da* INSULIN GLARGINE (U-100) 100 * Seventy five (75) units in th* RANITIDINE 300 MG TABLET Take 1 tablet by mouth daily * X METOPROLOL TARTRATE 25 MG TAB* Take 1 tablet by mouth twice * GABAPENTIN 600 MG TABLET Take 1 tablet by mouth three * BUPROPION XL 300 MG 24 HR TAB Take 1 tablet by mouth once d* AMLODIPINE 5 MG TABLET Take 1 tablet by mouth once d* HYDROCHLOROTHIAZIDE 25 MG TAB* Take 1 tablet by mouth once d* LISINOPRIL 40 MG TABLET Take 1 tablet by mouth once d* METFORMIN ER 500 MG TABLET,EX* Take one tablet by mouth twic* ATORVASTATIN 20 MG TABLET Take 1 tablet by mouth at bed* ASPIRIN 81 MG CHEWABLE TABLET Take 81 mg by mouth once adela* ACETAMINOPHEN ORAL Take by mouth. 1000 mg bid f* Problem List As Of Date 11/12/2017 Noted Resolved Uncontrolled type 2 diabetes mellitus with comp*INVALID FOR* More... Hypertension goal BP (blood pressure) < 140/90 *INVALID FOR* More... HYPERLIPIDEMIA NEC/NOS [E78.5] INVALID FOR* More... DEPRESSIVE DISORDER NEC [F32.9] INVALID FOR* More... ED (erectile dysfunction) [N52.9] INVALID FOR* Lower urinary tract symptoms (LUTS) [R39.9] INVALID FOR* History of kidney stones [Z87.442] INVALID FOR* Microscopic hematuria [R31.29] INVALID FOR* Diabetic polyneuropathy associated with type 2 *INVALID FOR* More... Acute pain of right shoulder [M25.511] INVALID FOR* More... Other instructions from your clinician: Please follow the provided instructions for upper endoscopy and colonoscopy. You will be using GoLytely as the laxative during the preparation. You may start the laxative as early as 1:00 in the afternoon. You will have the deeper sedation we call MAC. This will be done in [place]. The equipment scheduler will contact you to schedule your procedures. Visit Notes: >> Edwige Melendrez Nov 12, 2017 9:03 AM Status: Signed Pt states did not take BP medicine this morning. Edwige Pike MA Prescriptions ordered this encounter Disp Refills Start End PEG 3350 240 GRAM-ELECTROLYTES 22.72* 1 Sudhir* 0 11/12/2017 11/12/2017 Route: ORAL Sig: Take 4,000 mL by mouth one time only for 1 dose. Medications Discontinued During This Encounter metoclopramide HCl (REGLAN) 10 mg ta* 11/12/2017 Class: Historical Med Route: ORAL Sig: Take 10 mg by mouth three times daily. With meals Disc: Reason for discontinue is not on file. albuterol HFA (VENTOLIN HFA) 90 mcg/* 1 In* 0 09/11/2016 11/12/2017 Route: INHALATION Sig: Inhale 2 Puffs as instructed every 4 hours as needed for Wheezing/Shortness of Breath. Disc: Course of therapy completed Follow-up and Disposition History Recorded Encounter Status:Closed by TIMMY CHAPPELL CNP on 11/12/17 NM GASTRIC EMPTYING Observed: 10/31/2017 Status: F Source: [place] SOLID 4:28 PM [facility] REPOSITORY * * *Final Report* * * DATE OF EXAM: Oct 31 2017 4:28PM WON 0017 - NM GASTRIC EMPTYING SOLID / PROCEDURE REASON: Vomiting without nausea * * * * Physician Interpretation * * * * SOLID MEAL GASTRIC EMPTYING STUDY 10/31/2017 4:29 PM: CLINICAL HISTORY: 46 year old patient with history of emesis. TECHNIQUE: 1.2 mCi Tc-99m sulfur colloid was given orally in a meal consisting of 4 oz Egg Beaters, 2 slices of toast, jelly, and 8 oz water, consumed over 5 to 10 minutes. 1-minute posterior and anterior spot images of the stomach region at times 0, 1, 2, and 4 hours were obtained. Geometric mean was used to plot a time-activity curve. RESULT: Solid study demonstrates 61% gastric retention at 1 hour (normal range, 37-90%), 25% retention at 2 hours (normal range, 30-60%), and 3% retention at 4 hours (normal range, 0-10%). There is no evidence of accelerated emptying of gastric contents, with 61% retention at 1 hour (rapid emptying is <30% retention at 1 hour). IMPRESSION: NORMAL RATE OF GASTRIC EMPTYING OF A SOLID MEAL. Hand Packager: PSCB Transcribe Date/Time: Oct 31 2017 4:29P Dictated by : ALMA MESA MD This examination was interpreted and the report reviewed and electronically signed by: JAMEE DRAKE MD on Oct 31 2017 4:51PM EST [id number] Observed: 10/31/2017 Status: COMPLETED Source: [place] 2:54 PM [facility] REPOSITORY [facility] ID: [id number] Author: Ary Simpson [employer] Service: (none) Author Type: (none) Type: Progress Notes Filed: 10/31/2017 2:56 PM Note Text: RADIOLOGY SERVICE PROGRESS NOTE SERVICE DATE: 10/31/2017 SERVICE TIME: 2:55 PM PATIENT IDENTITY VERIFICATION COMPLETED USING TWO (2) METHODS: Patient confirmed name and Date of verbally. PATIENT GENDER DATA: .male ALLERGIES: Reviewed and unchanged MEDICATIONS REVIEWED: Yes PATIENT RELEVANT IMPLANT DATA REVIEWED: Not Applicable CREATININE: Creatinine Date Value Ref Range Status 05/03/2017 1.74 (H) 0.73 - 1.22 mg/dL Final 09/07/2016 1.58 (H) 0.73 - 1.22 mg/dL Final 04/26/2016 1.20 0.70 - 1.40 mg/dL Final eGFR-All Other Races Date Value Ref Range Status 05/03/2017 42 . Final Comment: eGFR (Estimated GFR) Units of measure: mL/min/1.73 meters squared eGFR is derived from the reexpressed MDRD Study equation using the following parameters: serum creatinine, age, gender and race. The creatinine assay has been calibrated to be traceable to IDMS. An eGFR <60 mL/min/1.73m2 for >3 months is consistent with chronic kidney disease. Refer to KDOQI guidelines for clinical interpretation. In patients with unstable renal function, e.g. those with acute kidney injury, the eGFR may not accurately reflect actual GFR. eGFR- Date Value Ref Range Status 05/03/2017 51 Final P.O.C.T. RESULTS: N/A October 31, [address] PERFORMED: No IV SITE: NM only - not applicable, oral or physician administered agents given to patient POST EXAM PIV STATUS: Not applicable PROCEDURE TYPE: NM GET: 1.2 mCi Tc99m SULFUR COLLOID was administered orally via 4 ounces of Egg Beaters,2 pieces of toast, 1 ounce of jelly with 8 ounces of water orally ADMINISTRATION TIME: 12:10 PATIENT DISCHARGED TO: Ambulatory patient, left [place] department area. A Diagnostic radioactive procedure has taken place, with no further precautions necessary other than routine body substance precautions. More information regarding radiation safety can be found using this link: [email or web address] SIGNATURE: Ary Michele PATIENT NAME: Williams Burgos DATE: October 31, 2017 TIME: 2:55 PM PAGER/CONTACT #: US ABDOMEN COMPLETE Observed: 10/28/2017 Status: F Source: [place] 10:51 AM [facility] REPOSITORY * * *Final Report* * * DATE OF EXAM: Oct 28 2017 10:51AM [facility] 1040 - US ABDOMEN COMPLETE / PROCEDURE REASON: multiple diagnoses * * * * Physician Interpretation * * * * US ABDOMEN COMPLETE HISTORY: Abdominal pain and vomiting. COMPARISON: Ultrasound kidney on 10/08/2014 TECHNIQUE: Sonography of the abdomen was performed. Images were obtained and stored in a permanent archive. RESULT: Pancreas: Not well seen, likely due to overlying bowel gas. Liver: Echotexture: Homogeneous Echogenicity: Normal Surface contour: Smooth Lesions: None Biliary: Intrahepatic bile ducts: Normal CBD: 7 mm, Gallbladder: Not visualized (patient denies cholecystectomy) -Sonographic Morrison's: Negative Spleen: Size: 12 x 11.4 x 10.4 cm Lesions: None Right Kidney: Length: 12.8 cm. Lesions: There is a 1.2 x 0.9 x 1 cm cyst/cystic lesion in the upper pole to interpolar kidney. Hydronephrosis: none Left kidney: Length: 13.5 cm. Lesions: none Hydronephrosis: none IVC: Imaged segment is patent. Abdominal Aorta (AP x TV): Proximal: Not seen Mid: Not seen Distal: 1.7 x 1.9 cm Ascites: None. IMPRESSION: No acute sonographic abnormalities identified, within the limitation of the study. The gallbladder is nonvisualized. 1.2 cm right renal cyst/cystic lesion. Hand Packager: PSCB Transcribe Date/Time: Oct 28 2017 11:04A Dictated by : JOANA LORENZANA MD This examination was interpreted and the report reviewed and electronically signed by: JOANA LORENZANA MD on Oct 28 2017 11:11AM EST [id number] PROGRESS Observed: 10/28/2017 Status: COMPLETED Source: [place] 10:08 AM [facility] REPOSITORY HNO ID: [id number] Author: Elsi Michele Service: (none) Author Type: (none) Type: Progress Notes Filed: 10/28/2017 10:52 AM Note Text: Radiology Service Progress Note PATIENT NAME: Williams Burgos DATE OF SERVICE: October 28, 2017 TIME: 10:08 AM PATIENT IDENTITY VERIFICATION COMPLETED USING TWO (2) METHODS: Patient confirmed name verbally and Date of . PATIENT GENDER DATA: Male PATIENT RELEVANT IMPLANT DATA REVIEWED: Not Applicable RADIOLOGY DEPARTMENT: Ultrasound PERIPHERAL IV DATA: Not applicable SIGNED BY: Elsi Michele October 28, 2017 10:08 AM PROGRESS Observed: 10/24/2017 Status: COMPLETED Source: [place] 3:17 PM [facility] REPOSITORY HNO ID: [id number] Author: Frances Kaufman Service: (none) Author Type: Nurse Practitioner Type: Progress Notes Filed: 10/25/2017 11:54 AM Note Text: CC: Patient presents with: Vomiting: twice daily every day x 6 months HPI Williams Burgos is a 46 year old male who presents today for vomiting at least twice daily for 6 months. Daily in the mornings he will cough, sneeze and blow his nose which makes him gag and have dry heaves but no emesis. Vomits about 15 to 20 minutes after eating later in the day, time of day varies. Emesis described as unndigested food. No particular foods that cause vomiting. No nausea prior to vomiting. Good appetite otherwise. Positive for LUQ abdominal pain for for 2 days. Pain is constant. Described as aching and rated 6/10 currently. Denies fever, chills, constipation, black/bloody stools, heartburn/reflux symptoms and pain that wakes him up from sleep. Nothing seems to make pain worse and alleviated by laying down. He has had this pain intermittently before but never this bad. Also reports diarrhea for more than a year. Occurs immediately every time he eats. Unsure of amount. Does have very mild cramping right before diarrhea. Diet- Eats fried/greasy foods daily. Uncontrolled diabetes. Checks blood sugars every couple days around lunch time-usually in the 200's sometimes higher in the 300's to 400's. Taking all medications as prescribed including Metformin, unsure if diarrhea started before or after Metformin. Was prescribed Reglan previously but unsure what for. He had stopped taking due to upset stomach. REVIEW OF SYSTEMS Respiratory: no wheezing, no shortness of breath GI: Negative for problem swallowing PAST MEDICAL HISTORY Diagnosis Date - Bronchitis - Depression - Detached retina - DM type 2, goal HbA1c < 7% ([facility]) - GERD (gastroesophageal reflux disease) - Hyperlipidemia - Kidney stones - PNA (pneumonia) - Unspecified essential hypertension - Vitamin D deficiency PAST SURGICAL HISTORY Procedure Laterality Date - CYSTOSCOPY,REMV CALCULUS,COMPLIC 1999 - PAST SURGICAL HISTORY OF Left 2012 AND 2014 removal eye fluid with instillation oil - REMOVAL GALLBLADDER 1998 Cholecystectomy ALLERGIES Review of patient's allergies indicates no known allergies. MEDICATIONS insulin aspart (NOVOLOG FLEXPEN) 100 unit/mL inpn Inject insulin three times daily at first bite of food. Take 20 w/breakfast, 15 w/lunch, 20 w/supper. insulin glargine (LANTUS SOLOSTAR) 100 unit/mL (3 mL) inpn Twenty five (25) units in the evening. metoprolol tartrate, short acting, (LOPRESSOR) 25 mg tablet Take 1 tablet by mouth twice daily. gabapentin (NEURONTIN) 600 mg tablet Take 1 tablet by mouth three times daily. buPROPion XL (WELLBUTRIN XL) 300 mg 24 hr tablet Take 1 tablet by mouth once daily. amLODIPine (NORVASC) 5 mg tablet Take 1 tablet by mouth once daily. Indications: hypertension hydroCHLOROthiazide (HYDRODIURIL, ESIDRIX) 25 mg tablet Take 1 tablet by mouth once daily. lisinopril (ZESTRIL, PRINIVIL) 40 mg tablet Take 1 tablet by mouth once daily. Indications: hypertension albuterol HFA (VENTOLIN HFA) 90 mcg/actuation inhaler Inhale 2 Puffs as instructed every 4 hours as needed for Wheezing/Shortness of Breath. metFORMIN ER (GLUCOPHAGE XR) 500 mg 24 hr tablet Take one tablet by mouth twice daily with meals atorvastatin (LIPITOR) 20 mg tablet Take 1 tablet by mouth at bedtime as needed. metoclopramide HCl (REGLAN) 10 mg tablet Take 10 mg by mouth three times daily. With meals aspirin 81 mg chewable tablet Take 81 mg by mouth once daily. ACETAMINOPHEN ORAL Take by mouth. 1000 mg bid for pain / aches FAMILY HISTORY Problem Relation Age of Onset - Colon Cancer Father 53 - Diabetes Brother 52 - Diabetes Sister - Diabetes Mother 78 - Cancer Brother 49 lung - Diabetes Son Social History Substance Use Topics - Smoking status: Never Smoker - Smokeless tobacco: Current User Types: Snuff Comment: snuff x 33 years - Alcohol use Yes Comment: rarely PHYSICAL EXAM BP 170/110 Pulse 96 Temp 37 ?C (98.6 ?F) (Temporal Artery) Resp 14 Wt 97.5 kg (215 lb) SpO2 99% BMI 32.69 kg/m2 General Appearance: well appearing, in no acute distress, alert Skin: Skin color, texture, turgor normal for age; Eyes: conjunctiva pink and moist, no icterus, sclera white, non-injected Neck: Thyroid normal size and symmetric without palpable nodules, Neck supple, No adenopathy Oropharynx: lips normal without lesions, tongue midline and normal, soft palate, uvula, and tonsils normal Lungs: Lungs clear to auscultation. No wheezing, rhonchi, rales Heart: RRR without murmur, gallop, or rubs. No ectopy Abdomen: Abdomen soft, non-distended. Bowel sounds normal. LUQ and epigastric tenderness with palpation. No masses, organomegaly Ext: no edema in LE bilaterally, good distal pulses ASSESSMENT/PLAN: 1. LUQ abdominal pain - ICD9: 789.02, ICD10: R10.12 (primary diagnosis) Differential Diagnosis includes GERD, Gastritis and gatroparesis - Begin treatment with Zantac 300 mg QD - Labs of CBC with Diff, CMP, Amylase and Lipase - Work up with abdominal ultrasound and gastric emptying study - Referral to Gastroenterology - Follow-up in office pending results of work-up - US ABDOMEN COMPLETE - COMP METABOLIC PANEL - AMYLASE BLD - LIPASE BLD - CBC + DIFF - CONSULT TO GASTROENTEROLOGY 2. Non-intractable vomiting without nausea, unspecified vomiting type - ICD9: 787.03, ICD10: R11.11 As above - NM GASTRIC EMPTYING SOLID - US ABDOMEN COMPLETE - COMP METABOLIC PANEL - AMYLASE BLD - LIPASE BLD - CBC + DIFF - CONSULT TO GASTROENTEROLOGY 3. Chronic diarrhea - ICD9: 787.91, ICD10: K52.9 Differential diagnoses as above, also possibly related to Metformin - US ABDOMEN COMPLETE - CONSULT TO GASTROENTEROLOGY 4. Uncontrolled type 2 diabetes mellitus with complication, with long-term current use of insulin (HCC) - ICD9: 250.82, V58.67, ICD10: E11.8, E11.65, Z79.4 - INSULIN GLARGINE 100 UNIT/ML (3 ML) SUBCUTANEOUS PEN During this patient visit I have spent approximately 45 minutes in counseling regarding treatment options, medications and testing and coordinating care. Frances Older, CUSTOM STUDIO COORDINATOR Prescription instructions reviewed with patient as applicable. Potential red flag symptoms discussed with the patient. Reviewed appropriate action plan to take if red flag symptoms occur. Patient agreeable to treatment plan. PROGRESS Observed: 09/12/2017 Status: COMPLETED Source: [place] 8:19 AM [facility] [place] REPOSITORY O ID: [id number] Author: Colleen Montalvo [facility] Service: (none) Author Type: (none) Type: Progress Notes Filed: 09/12/2017 8:21 AM Note Text: Patient informed and verbalizes understanding.Will get labs done. The patient has been identified by name and date of : YES I have scheduled the patient for an appointment on 11/13/2017. The patient will report to the lab prior to the visit. PHMA Documentation 04/08/2017 09/12/2017 Opts out of [facility] Health No No Appointments Scheduled Scheduled PCP Appt Scheduled PCP Appt DM2 with No ROCIO Record Requested;Confirmed Complete - DM2 with No Urine Alb Lab Ordered Lab Ordered DM2 with No DFE (No Data) (No Data) A1C > 8.9 Lab Ordered Lab Ordered LDL > 99 with CAD Lab Ordered Lab Ordered Colleen Montalvo Cma PROGRESS Observed: 09/12/2017 Status: COMPLETED Source: [place] 8:14 AM [facility] REPOSITORY HNO ID: [id number] Author: Colleen Montalvo Cma Service: (none) Author Type: (none) Type: Progress Notes Filed: 09/12/2017 8:21 AM Note Text: Left message for patient to return call #[phone] PROGRESS Observed: 09/12/2017 Status: COMPLETED Source: [place] 8:11 AM [facility] REPOSITORY HNO ID: [id number] Author: Colleen Montalvo Cma Service: (none) Author Type: (none) Type: Progress Notes Filed: 09/12/2017 8:21 AM Note Text: Williams canceled an appointment with PCP on 08/07/2017. He's overdue for some DM labs. He has an upcoming appointment on 11/13/2017. I will call to him remind him to get labs done at any time before his appointment. Health Maintenance Due: DIABETIC FOOT EXAM due on 1984 LDL due on 04/26/2017- ordered Hemoglobin A1C (%) Date Value 05/03/2017 11.7 Date: BP: 08/20/2017 106/68 08/18/2017 120/76 05/21/2017 136/86 05/10/2017 152/76 05/08/2017 158/92[average[ 05/03/2017 138/70 04/29/2017 192/107[philippe bp average[ 04/29/2017 179/103 04/26/2017 188/100 01/04/2017 134/72 11/16/2016 126/68 10/31/2016 148/80 10/12/2016 172/102 09/14/2016 162/102[recheck[ CNPTOUTREACH Observed: 09/12/2017 Status: COMPLETED Source: [place] 12:00 AM [facility] REPOSITORY Patient Outreach (INTMWS) LORETTAWILLIAMS ([id number]) 1970 M Date Time Provider Department 09/12/17 COLLEEN MONTALVO ([facility]) INTM[facility] During your visit today, we recorded the following information about you: Colleen Montalvo [facility] 09/12/2017 8:21 AM Signed Williams canceled an appointment with PCP on 08/07/2017. He's overdue for some DM labs. He has an upcoming appointment on 11/13/2017. I will call to him remind him to get labs done at any time before his appointment. Health Maintenance Due: DIABETIC FOOT EXAM due on 1984 LDL due on 04/26/2017- ordered Hemoglobin A1C (%) Date Value 05/03/2017 11.7 Date: BP: 08/20/2017 106/68 08/18/2017 120/76 05/21/2017 136/86 05/10/2017 152/76 05/08/2017 158/92[average[ 05/03/2017 138/70 04/29/2017 192/107[philippe bp average[ 04/29/2017 179/103 04/26/2017 188/100 01/04/2017 134/72 11/16/2016 126/68 10/31/2016 148/80 10/12/2016 172/102 09/14/2016 162/102[recheck[ Colleen Montalvo [facility] 09/12/2017 8:21 AM Signed Left message for patient to return call #[phone] Colleen Montalvo [facility] 09/12/2017 8:21 AM Signed Patient informed and verbalizes understanding.Will get labs done. The patient has been identified by name and date of : YES I have scheduled the patient for an appointment on 11/13/2017. The patient will report to the lab prior to the visit. PHMA Documentation 04/08/2017 09/12/2017 Opts out of Population Health No No Appointments Scheduled Scheduled PCP Appt Scheduled PCP Appt DM2 with No ROCIO Record Requested;Confirmed Complete - DM2 with No Urine Alb Lab Ordered Lab Ordered DM2 with No DFE (No Data) (No Data) A1C ANDgt; 8.9 Lab Ordered Lab Ordered LDL ANDgt; 99 with CAD Lab Ordered Lab Ordered Colleen Montalvo Synchronous Motor Assembler Allergies As of Date: 09/12/2017 (No Known Allergies) Date Reviewed: 08/20/2017 Reviewed by: Maddie Michael Ma - Fully Assessed Reason for Visit: PHMA/[facility] Outreach [[id number]] Prescriptions as of 09/12/2017 Sig: ALBUTEROL SULFATE HFA 90 MCG/* Inhale 2 Puffs as instructed * BENZONATATE 100 MG CAPSULE Take 1 capsule by mouth three* GUAIFENESIN ER 600 MG TABLET,* Take 2 tablets by mouth twice* METOPROLOL TARTRATE 25 MG TAB* Take 1 tablet by mouth twice * INSULIN GLARGINE 100 UNIT/ML * Seventy Five (75) units in th* GABAPENTIN 600 MG TABLET Take 1 tablet by mouth three * BUPROPION XL 300 MG 24 HR TAB Take 1 tablet by mouth once d* AMLODIPINE 5 MG TABLET Take 1 tablet by mouth once d* HYDROCHLOROTHIAZIDE 25 MG TAB* Take 1 tablet by mouth once d* LISINOPRIL 40 MG TABLET Take 1 tablet by mouth once d* TRAMADOL 50 MG TABLET Take 1 tablet by mouth every * INSULIN ASPART 100 UNIT/ML ROSENBERG* Inject insulin three times da* ALBUTEROL SULFATE HFA 90 MCG/* Inhale 2 Puffs as instructed * METFORMIN ER 500 MG TABLET,EX* Take one tablet by mouth twic* ATORVASTATIN 20 MG TABLET Take 1 tablet by mouth at bed* BUPROPION XL 150 MG TAB Take 1 tablet by mouth once d* METOCLOPRAMIDE 10 MG TABLET Take 10 mg by mouth three jonny* ASPIRIN 81 MG CHEWABLE TABLET Take 81 mg by mouth once adela* ACETAMINOPHEN ORAL Take by mouth. 1000 mg bid f* Problem List As Of Date 09/12/2017 Noted Resolved Uncontrolled type 2 diabetes mellitus with comp*INVALID FOR* More... Hypertension goal BP (blood pressure) < 140/90 *INVALID FOR* More... HYPERLIPIDEMIA NEC/NOS [E78.5] INVALID FOR* More... DEPRESSIVE DISORDER NEC [F32.9] INVALID FOR* More... ED (erectile dysfunction) [N52.9] INVALID FOR* Lower urinary tract symptoms (LUTS) [R39.9] INVALID FOR* History of kidney stones [Z87.442] INVALID FOR* Microscopic hematuria [R31.29] INVALID FOR* Diabetic polyneuropathy associated with type 2 *INVALID FOR* More... Acute pain of right shoulder [M25.511] INVALID FOR* More... Encounter Status:Closed by COLLEEN MONTALVO CMA on 09/12/17 ALLERGIES ALLERGIES DATE TYPE / CODE NAME / CODE REACTION SEVERITY SOURCE 08/26/2018 Drug No Known Unknown [facility] Allergy/416 Allergies/S90681 Hospital 423493(SNOM 0388(RXNORM) Repository ED CT) Drug NO KNOWN [facility] Class/17721 ALLERGIES Other [place] 1003(SNOMED Repository CT) ENCOUNTERS ENCOUNTERS ADMIT/DISCHARGE ACCOUNT ADMITTING ENCOUNTER LOCATION SOURCE NUMBER CLASS 08/26/2018 [id number] Shruti Jara [facility] ing:PCURoom: Repository [id number]: 1 08/26/2018 [id number] [facility] ing:LAB.FUTUR Repository E 08/26/2018 [id number] Ambulatory [facility] ing:LAB.FUTUR Repository E 08/21/2018 [id number] [place], Ambulatory BMSBuilding:Heena Mckay [facility] Repository 08/21/2018 [id number] [place], Ambulatory BMSBuilding:Heena Mckay [facility] Repository 08/21/2018 [id number] [place], Ambulatory BMSBuilding:Heena Mckay [facility] Repository 08/21/2018 [id number] [place], Ambulatory BMSBuilding:Heena Mckay [facility] Repository 08/21/2018 [id number] [place], Ambulatory BMSBuilding:Heena Mckay [facility] Repository 08/21/2018 [id number] [place], Ambulatory BMSBuilding:Heena Mckay MS.[facility] Repository 08/21/2018/08/25/20 [id number] [place], Inpatient Tali Mckay [facility] ing:PCURoom: Repository [id number]: 1 08/19/2018/08/20/20 [id number] Ambulatory [address] Repository 08/13/2018/08/14/20 [id number] Ambulatory [address] Repository 08/08/2018/08/08/20 [id number] Ambulatory [address] ing:SDCRoom: Repository AC16 07/18/2018/07/18/20 [id number] Ambulatory BMSBuilding:B [place] [address] [place].[facility] Repository 07/17/2018 [id number] Ambulatory BMSBuilding:[place] MS.CF.[facility] Repository 07/17/2018 [id number] Ambulatory [facility] ing:CVS Repository 07/16/2018/07/16/20 [id number] Ambulatory [address] Repository 07/16/2018/07/16/20 [id number] Ambulatory [address] Repository 07/16/2018/07/16/20 [id number] Ambulatory [address] Repository 07/16/2018/07/17/20 [id number] Ambulatory [address] Repository 07/11/2018 [id number] Ambulatory [facility] ing:LAB.FUTUR Repository E 07/10/2018 [id number] Ambulatory [facility] Hospital ing:POLAB3 Repository 07/01/2018 [id number] Ambulatory [facility] ing:LAB.FUTUR Repository E 06/25/2018/06/26/20 [id number] Ambulatory [address] Repository 06/11/2018/06/16/20 [id number] Ambulatory [address] Repository 05/19/2018/05/19/20 [id number] Ambulatory [address] Repository 05/19/2018/05/20/20 [id number] Ambulatory [address] Repository 03/04/2018 [id number] Ambulatory BMSBuilding:[place] Repository 03/02/2018/03/02/20 [id number] Emergency [address] [facility] Hospital ing:ED Repository 02/25/2018 [id number] Ambulatory [facility] ing:LAB.FUTUR Repository E 02/24/2018 [id number] Ambulatory BMSBuilding:W Tali [facility] Repository 02/24/2018 [id number] Ambulatory [facility] Hospital ing:PSN Repository 02/19/2018/02/20/20 [id number] Ambulatory BMSBuilding:B Tali 18 [facility] Repository 02/11/2018 [id number] Ambulatory BMSBuilding:Heena Cesar [facility] Repository 01/30/2018 [id number] Ambulatory BMSBuilding:Heena Cesar [facility] Repository 01/20/2018/01/21/20 [id number] Ambulatory BMSBuilding:B Tali 18 [facility] Repository 01/17/2018/01/18/20 [id number] Ambulatory [address] Repository 01/15/2018 [id number] Ambulatory [facility] Repository 12/30/2017 [id number] Ambulatory [facility] ing:LAB.FUTUR Repository E 12/26/2017 [id number] Ambulatory BMSBuilding:Heena Cesar MS.[facility] Repository 12/25/2017 [id number] Ambulatory [facility] ing:POLAB3 Repository 12/22/2017/12/23/19 [id number] Emergency [address] Hospital[facility] Hospital ing:ED Repository 12/19/2017 [id number] Ambulatory BMSBuilding:Heena Cesar MS.[facility] Repository 12/17/2017/12/18/19 [id number] Ambulatory BMSBuilding:Heena [place] [address] [facility] Repository 12/16/2017/12/20/19 [id number] Ambulatory [address] Repository 12/13/2017 [id number] Ambulatory [facility] ing:CCN Repository 12/11/2017 [id number] Ambulatory BMSBuilding:Heena Cesar MS.[facility] Repository 12/10/2017 [id number] Yonathan, Ambulatory BMSBuilding:Heena Garza [facility] Repository 12/10/2017 [id number] Yonathan, Ambulatory BMSBuilding:Heena Garza [facility] Repository 12/10/2017 [id number] Yonathan, Ambulatory BMSBuilding:Heena Garza [facility] Repository 12/10/2017 [id number] Yonathan, Ambulatory BMSBuilding:Heena Garza [facility] Repository 12/10/2017/12/15/19 [id number] [facility] ing:PCURoom: Repository [id number]: 1 12/02/2017/12/07/19 [id number] Ambulatory BMSBuilding:W [address] Repository 11/28/2017 [id number] [place], [place] Ambulatory BMSBuilding:Heena Cesar [facility] Repository 11/28/2017 [id number] [place], [place] Ambulatory BMSBuilding:Heena Cesar [facility] Repository 11/28/2017 [id number] [place], [place] Ambulatory BMSBuilding:Heena Cesar [facility] Repository 11/28/2017 [id number] [place], [place] Ambulatory BMSBuilding:Heena Cesar MS.CF.[facility] Repository 11/28/2017 [id number] [place], [place] Ambulatory BMSBuilding:[facility] Repository 11/28/2017 [id number] [place], [place] Ambulatory BMSBuilding:Heena Cesar [facility] Repository 11/28/2017 [id number] [place], [place] Ambulatory BMSBuilding:Heena Cesar MS.CF.[facility] Repository 11/28/2017 [id number] [place], [place] Ambulatory BMSBuilding:[facility] Repository 11/28/2017 [id number] [place], [place] Ambulatory BMSBuilding:Heena Cesar MS.CF.[facility] Repository 11/28/2017 [id number] [place], [place] Ambulatory BMSBuilding:[facility] Repository 11/28/2017 [id number] [place], [place] Ambulatory BMSBuilding:Heena Cesar [facility] Repository 11/28/2017 [id number] [place], [place] Ambulatory BMSBuilding:Heena Cesar MS.[facility] Repository 11/28/2017 [id number] [place], [place] Ambulatory BMSBuilding:[facility] Repository 11/28/2017 [id number] [place], [place] Ambulatory BMSBuilding:Heena Cesar [facility] Repository 11/28/2017 [id number] [place], [place] Ambulatory BMSBuilding:Heena Cesar [facility] Repository 11/28/2017 [id number] Paint[place], [place] Ambulatory BMSBuilding:Heena Cesar [facility] Repository 11/28/2017 [id number] Paint[place], [place] Ambulatory BMSBuilding:Heena Cesar [facility] Repository 11/28/2017/12/07/19 [id number] [place], [place] Inpatient [address] ing:PCURoom: Repository [id number]: 1 11/26/2017/12/03/19 [id number] Ambulatory [address] Repository 11/20/2017/11/22/19 [id number] Ambulatory BMSBuilding:W [address] Repository 11/19/2017/11/22/19 [id number] Ambulatory BMSBuilding:W [address] Repository 11/19/2017 [id number] White, Isamar Ambulatory BMSBuilding:Heena Cesar [facility] Repository 11/19/2017 [id number] White, Isamar Ambulatory BMSBuilding:Heena Cesar MS.CF.[facility] Repository 11/19/2017 [id number] White, Isamar Ambulatory BMSBuilding:Heena Cesar [facility] Repository 11/19/2017 [id number] White, Isamar Ambulatory BMSBuilding:Heena Cesar MS.[facility] Repository 11/19/2017 [id number] White, Isamar Ambulatory BMSBuilding:B Tali MS.WIP [facility] Repository 11/19/2017/11/22/19 [id number] Isamar Smith Inpatient Tali Tali 18 Encounter [facility] ing:ICURoom: Repository [id number]: 1 11/19/2017/11/21/19 [id number] Ambulatory [address] Repository 11/12/2017/11/14/19 [id number] Ambulatory [address] Repository 11/12/2017/11/15/19 [id number] Ambulatory [address] Repository 10/31/2017/10/31/19 [id number] Ambulatory [address] Repository 10/28/2017/10/28/19 [id number] Ambulatory [address] Repository 10/24/2017/10/24/19 [id number] Ambulatory [address] Repository PAYERS PAYERS ENCOUNTER GUARANTOR PAYER SUBSCRIBER SOURCE 08/26/2018 WILLIAMS D Primary WILLIAMS D Tali [id number] Insurance:HUMANA BEASLEYDOB: Community [id number] [address]Lhq: 330 [id number] [phone] (HP) Date:7653-26-32XL [address] [address]TT: 08/26/2018 Secondary NOT GIVENUNK Tali Insurance:SELF PAY [facility] Number: Effective Repository Date:2018-08-26 08/26/2018 WILLIAMS D Primary NOT GIVENUNK [place] [id number] Insurance:SELF [place] Number: Effective Repository [id number]: 330) Date:2018-08-26 [phone] (HP) 08/26/2018 WILLIAMS D Primary WILLIAMS D Tali [id number] Insurance:HUMANA BEASLEYDOB: Community [place] [id number] Number[place]ository [address]Mnj: 330 [id number] [phone] (HP) Date:8179-63-51DJ [address] [address]TE: 08/26/2018 Secondary NOT GIVENUNK Tali Insurance:SELF PAY [facility] Number: Effective Repository Date:2018-08-26 08/21/2018 WILLIAMS D Primary WILLIAMS D [place] [id number] Insurance:HUMANA BEASLEYDOB: [place] [facility] [id number] Repository [address]Bfg: 330 [id number] [phone] (HP) Date:9986-58-01BU [address] [address]QP: 08/21/2018 Secondary NOT GIVENUNK [place] Insurance:SELF PAY [facility] Number: Effective Repository Date:2018-08-21 08/21/2018 WILLIAMS D Primary WILLIAMS D Tali [id number] Insurance:HUMANA BEASLEYDOB: Community [place] [facility] [id number] [place] Number: Repository [address]Wkr: 330 [id number] [phone] (HP) Date:1598-06-25NZ [address] [address]AL: 08/21/2018 Secondary NOT GIVENUNK [place] Insurance:SELF PAY [facility] Number: Effective Repository Date:2018-08-21 08/21/2018 WILLIAMS D Primary WILLIAMS D Tali [id number] Insurance:HUMANA BEASLEYDOB: Community [place] [facility] [id number]-[facility] [place] Number: Repository [address]Lmp: 330 [id number] [phone] (HP) Date:2290-29-19BA [address] [address]DO: 08/21/2018 Secondary NOT GIVENUNK [place] Insurance:SELF PAY [facility] Number: Effective Repository Date:2018-08-21 08/21/2018 WILLIAMS D Primary WILLIAMS D [place] [id number] Insurance:HUMANA BEASLEYDOB: Community [place] [id number]-Clarksburg [facility] [place] Number: Repository [address]Cze: (330 [id number] [phone] (HP) Date:4768-58-72NB [address] [address]KZ: 08/21/2018 Secondary NOT GIVENUNK Tali Insurance:SELF PAY [facility] Number: Effective Repository Date:2018-08-21 08/21/2018 WILLIAMS D Primary WILLIAMS D [place] [id number] Insurance:HUMANA BEASLEYDOB: [facility] [id number]-Clarksburg Hospital [place] Number: Repository [address]Sgc: 330 [id number] [phone] (HP) Date:2213-81-02KU [address]4601WP: 08/21/2018 Secondary NOT GIVENUNK [place] Insurance:SELF PAY [facility] Number: Effective Repository Date:2018-08-21 08/21/2018 WILLIAMS D Primary WILLIAMS D Tali [id number] Insurance:HUMANA BEASLEYDOB: [facility] [id number][place] [address]Msd: 330 [id number] [phone] (HP) Date:9106-26-49LY [address] [address]EB: 08/21/2018 Secondary NOT GIVENUNK [place] Insurance:SELF PAY [facility] Number: Effective Repository Date:2018-08-21 08/21/2018 WILLIAMS D Primary WILLIAMS D [place] [id number] Insurance:HUMANA BEASLEYDOB: [facility] [id number]-Clarksburg Hospital [place] Number: Repository [address]Kwz: (330 [id number] [phone] (HP) Date:9013-50-54XI [address] [address]JB: 08/21/2018 Secondary NOT GIVENUNK Tali Insurance:SELF PAY [facility] Number: Effective Repository Date:2018-08-21 08/08/2018 WILLIAMS D Primary WILLIAMS D [place] [id number] Insurance:HUMANA BEASLEYDOB: Community [place] [facility] [id number] Number: Repository [address]Kyb: 330 [id number] [phone] (HP) Date:0473-83-38ZN [address] [address]NS: 08/08/2018 Secondary NOT GIVENUNK [place] Insurance:SELF PAY [facility] Number: Effective Repository Date:2018-07-18 07/18/2018 WILLIAMS D Primary WILLIAMS D [place] [id number] Insurance:HUMANA BEASLEYDOB: [facility] [id number]ository [address]Wgo: 330 [id number] [phone] (HP) Date:6615-24-88XH [address] [address]NC: 07/18/2018 Secondary NOT GIVENUNK Tali Insurance:SELF PAY [facility] Number: Effective Repository Date:2018-07-10 07/17/2018 WILLIAMS D Primary WILLIAMS D [place] [id number] Insurance:HUMANA BEASLEYDOB: [facility] [place] PP[place]icy [id number][place] Number: Repository [address]Ipl: 330 [id number] [phone] (HP) Date:2991-27-96ZX [address] [address]RJ: 07/17/2018 Secondary NOT GIVENUNK Tali Insurance:SELF PAY [facility] Number: Effective Repository Date:2018-07-17 07/17/2018 WILLIAMS D Primary WILLIAMS D [place] [id number] Insurance:HUMANA BEASLEYDOB: Community [place] [facility] [id number]-Clarksburg Hospital [place] Number: Repository [address]Oxv: 330 [id number] [phone] (HP) Date:9842-33-39EU [address] [address]RP: 07/17/2018 Secondary NOT GIVENUNK Tali Insurance:SELF PAY [facility] Number: Effective Repository Date:2018-07-10 07/11/2018 WILLIAMS D Primary WILLIAMS D Tali [id number] Insurance:HUMANA BEASLEYDOB: [facility] [place] [facility] [id number]-Clarksburg [facility] [place] Number: Repository [address]Eut: 330 [id number] [phone] (HP) Date:9110-05-85GE [address] [address]EZ: 07/11/2018 Secondary NOT GIVENUNK [place] Insurance:SELF PAY [facility] Number: Effective Repository Date:2018-07-11 07/10/2018 WILLIAMS D Primary WILLIAMS D [place] [id number] Insurance:HUMANA BEASLEYDOB: [facility] [place] [facility] [id number]-Clarksburg Hospital [place] Number: Repository 18494Bkk: 330 [id number] [phone] (HP) Date:9231-00-59DN [address] [address]GG: 07/10/2018 Secondary NOT GIVENUNK [place] Insurance:SELF PAY [facility] Number: Effective Repository Date:2018-07-10 07/01/2018 WILLIAMS D Primary WILLIAMS D Tali [id number] Insurance:HUMANA BEASLEYDOB: [facility] [place] [facility] [id number]-[place] [facility] [place] Number: Repository [address]186Pwi: 330 [id number] [phone] (HP) Date:6946-33-79WT [address] [address]KP: 07/01/2018 Secondary NOT GIVENUNK [place] Insurance:SELF PAY [facility] Number: Effective Repository Date:2018-07-01 03/04/2018 WILLIAMS D Primary WILLIAMS D Tali [id number] Insurance:HUMANA BEASLEYDOB: Community [place] [id number] Number: Repository [address]Tue: 330 [id number] [phone] (HP) Date:6571-01-33RP [address] [address]IK: 03/04/2018 Secondary NOT GIVENUNK [place] Insurance:SELF PAY [facility] Number: Effective Repository Date:2018-01-29 03/02/2018 WILLIAMS D Primary WILLIAMS D [place] [id number] Insurance:HUMANA BEASLEYDOB: Community [place] [id number]-[place] [facility] [place] Number: Repository [address]Lxx: 330 [id number] [phone] (HP) Date:1420-27-87WH [address] [address]KA: 03/02/2018 Secondary NOT GIVENUNK [place] Insurance:SELF PAY [facility] Number: Effective Repository Date:2018-03-02 02/25/2018 WILLIAMS D Primary WILLIAMS D Tali [id number] Insurance:HUMANA BEASLEYDOB: Community [place] [id number]-Clarksburg Hospital [place] Number: Repository [address]Llt: 330 [id number] [phone] (HP) Date:6952-71-20KC [address] [address]RA: 02/25/2018 Secondary NOT GIVENUNK [place] Insurance:SELF PAY [facility] Number: Effective Repository Date:2018-02-25 02/24/2018 WILLIAMS D Primary WILLIAMS D [place] [id number] Insurance:HUMANA BEASLEYDOB: Community [place] [facility] [id number]-[facility] [facility] [place] Number: Repository [address]Pcu: 330 [id number] [phone] (HP) Date:3348-31-69VP [address] [address]TV: 02/24/2018 Secondary NOT GIVENUNK [place] Insurance:SELF PAY [facility] Number: Effective Repository Date:2018-02-24 02/24/2018 WILLIAMS D Primary WILLIAMS D [place] [id number] Insurance:HUMANA BEASLEYDOB: [facility] [place] [facility] [id number]-Clarksburg [facility] [place] Number: Repository [address]17Wab: 330 [id number] [phone] (HP) Date:9266-56-52YH [address] [address]GP: 02/24/2018 Secondary NOT GIVENUNK Tali Insurance:SELF PAY [facility] Number: Effective Repository Date:2018-02-20 02/19/2018 WILLIAMS D Primary WILLIAMS D [place] [id number] Insurance:HUMANA BEASLEYDOB: [facility] [place] [facility] [id number]-Clarksburg [facility] [place] Number: Repository [address]Rdj: 330 [id number] [phone] (HP) Date:4702-39-20EX [address] [address]UV: 02/19/2018 Secondary NOT GIVENUNK [place] Insurance:SELF PAY [facility] Number: Effective Repository Date:2018-02-19 02/11/2018 WILLIAMS D Primary WILLIAMS D [place] [id number] Insurance:HUMANA BEASLEYDOB: Community [place] [facility] [id number]-[facility]burg [facility] [place] Number: Repository [address]43Eod: 330 [id number] [phone] (HP) Date:5977-99-49VM [address] [place] [address]DU: 02/11/2018 Secondary NOT GIVENUNK [place] Insurance:SELF PAY [facility] Number: Effective Repository Date:2018-01-21 01/30/2018 WILLIAMS D Primary WILLIAMS D [place] [id number] Insurance:HUMANA BEASLEYDOB: Community [place] PP[place]icy [id number]-Clarksburg Hospital [place] Number: Repository [address]Fhs: 330 [id number] [phone] (HP) Date:5322-28-04MX [address] [address]QI: 01/30/2018 Secondary NOT GIVENUNK [place] Insurance:SELF PAY [facility] Number: Effective Repository Date:2018-01-30 01/20/2018 WILLIAMS D Primary WILLIAMS D [place] [id number] Insurance:HUMANA BEASLEYDOB: [facility] [id number]-Clarksburg [facility] [place]: Repository [address]Hkw: 330 [id number] [phone] (HP) Date:8655-49-51HY [address] [address]DX: 01/20/2018 Secondary NOT GIVENUNK [place] Insurance:SELF PAY [facility] Number: Effective Repository Date:2018-01-20 12/30/2017 WILLIAMS D Primary WILLIAMS D Tali [id number] Insurance:HUMANA BEASLEYDOB: [facility] [place] PP[place]icy [id number]-Clarksburg [facility] [place]: Repository [address]Myp: 330 [id number] [phone] (HP) Date:3446-28-43BP [address] [address]WK: 12/30/2017 Secondary NOT GIVENUNK [place] Insurance:SELF PAY [facility] Number: Effective Repository Date:2017-12-30 12/26/2017 WILLIAMS D Primary WILLIAMS D [place] [id number] Insurance:HUMANA BEASLEYDOB: Community [place] [id number]-[facility] [place] Number: Repository [address]657Tpk: (330 [id number] [phone] (HP) Date:9287-97-99SV [address] [address]JH: 12/26/2017 Secondary NOT GIVENUNK [place] Insurance:SELF PAY [facility] Number: Effective Repository Date:2017-12-26 12/25/2017 WILLIAMS D Primary WILLIAMS D Tali [id number] Insurance:HUMANA BEASLEYDOB: Community [place] [facility] [id number]-Clarksburg [facility] [place] Number: Repository [address]349Tzw: (330 [id number] [phone] (HP) Date:2250-96-69QN [address] [address]BX: 12/25/2017 Secondary NOT GIVENUNK Tali Insurance:SELF PAY [facility] Number: Effective Repository Date:2017-12-25 12/22/2017 WILLIAMS D Primary WILLIAMS D [place] [id number] Insurance:HUMANA BEASLEYDOB: [place] [facility] [id number]ository [address]Kzx: (330 [id number] [phone] (HP) Date:5076-66-62XG [address] [address]SS: 12/22/2017 Secondary NOT GIVENUNK [place] Insurance:SELF PAY [facility] Number: Effective Repository Date:2017-12-22 12/19/2017 WILLIAMS D Primary WILLIAMS D [place] [id number] Insurance:HUMANA BEASLEYDOB: Community [place] [facility] [id number] Number: Repository 58175Cur: (330 [id number] [phone] (HP) Date:1849-02-21WJ [address] [address]GV: 12/19/2017 Secondary NOT GIVENUNK [place] Insurance:SELF PAY [facility] Number: Effective Repository Date:2017-12-09 12/17/2017 WILLIAMS D Primary WILLIAMS D Tali [id number] Insurance:HUMANA BEASLEYDOB: [place] [facility] [id number] [address]Yeo: 330 [id number] [phone] (HP) Date:6524-32-67UR [address] [address]QP: 12/17/2017 Secondary NOT GIVENUNK Tali Insurance:SELF PAY [facility] Number: Effective Repository Date:2017-12-17 12/13/2017 WILLIAMS D Primary WILLIAMS D Tali [id number] Insurance:HUMANA BEASLEYDOB: [facility] [place] [facility] [id number][place] Number: Repository [address]Scc: 330 [id number] [phone] (HP) Date:3330-97-88FE [address] [address]HC: 12/13/2017 Secondary NOT GIVENUNK [place] Insurance:SELF PAY [facility] Number: Effective Repository Date:2017-12-13 12/11/2017 WILLIAMS D Primary WILLIAMS D Tali [id number] Insurance:HUMANA BEASLEYDOB: Community [place] [facility] [facility] [id number], [place] Number: Repository [address]Bpa: 330 [id number] [phone] (HP) Date:2214-18-91TD [address] [address]VY: 12/11/2017 Secondary NOT GIVENUNK [place] Insurance:SELF PAY [facility] Number: Effective Repository Date:2017-12-11 12/10/2017 WILLIAMS D Primary WILLIAMS D Tali [id number] Insurance:HUMANA BEASLEYDOB: [place] [facility] [facility] [id number] [facility] [place] Number: Repository [address]Mbt: 330 [id number] [phone] (HP) Date:0099-83-95PI [address] [address]OK: 12/10/2017 Secondary NOT GIVENUNK [place] Insurance:SELF PAY [facility] Number: Effective Repository Date:2017-12-10 12/10/2017 WILLIAMS D Primary WILLIAMS D Tali [id number] Insurance:HUMANA BEASLEYDOB: [facility] [place] PPOPolicy [id number] Valley Cancer [facility] [place] Number: Repository 26168Jeb: (330 [id number] [phone] (HP) Date:1683-02-46OQ [address] [address]DY: 12/10/2017 Secondary NOT GIVENUNK Tali Insurance:SELF PAY [facility] Number: Effective Repository Date:2017-12-10 12/10/2017 WILLIAMS D Primary WILLIAMS D [place] [id number] Insurance:HUMANA BEASLEYDOB: [facility] [place] PPOPolicy [id number] Valley Cancer [facility] [place] Number: Repository [address]Nns: 330 [id number] [phone] (HP) Date:4997-91-32OK [address] [address]LO: 12/10/2017 Secondary NOT GIVENUNK [place] Insurance:SELF PAY [facility] Number: Effective Repository Date:2017-12-10 12/10/2017 WILLIAMS D Primary WILLIAMS D [place] [id number] Insurance:HUMANA BEASLEYDOB: [facility] [place] [facility] [id number]-[facility] [place] Number[place] Repository [address]342Dwz: (330 [id number] [phone] (HP) Date:3618-12-27ZO [address] [address]ET: 12/10/2017 Secondary NOT GIVENUNK Tali Insurance:SELF PAY [facility] Number: Effective Repository Date:2017-12-10 12/10/2017 WILLIAMS D Primary WILLIAMS D Tali [id number] Insurance:HUMANA BEASLEYDOB: [place] [facility] [id number][place] Number: Repository [address]169Uad: 330 [id number] [phone] (HP) Date:4217-52-66CT [address] [address]SU: 12/10/2017 Secondary NOT GIVENUNK [place] Insurance:SELF PAY [facility] Number: Effective Repository Date:2017-12-10 12/02/2017 WILLIAMS D Primary WILLIAMS D Tali [id number] Insurance:HUMANA BEASLEYDOB: [facility] [place] [facility] [id number], [place] Number: [place] 05863Gyh: 330 [id number] [phone] (HP) Date:3351-68-80VS [address] [address]BK: 12/02/2017 Secondary NOT GIVENUNK Tali Insurance:SELF PAY [facility] Number: Effective Repository Date:2017-12-02 11/28/2017 Williams D Primary Williams D Tali [id number] Insurance:HUMANA BeasleyDOB: Community [place] [facility] [id number][place]: Repository [address]67Zox: 330 [id number] [phone] (HP) Date:3260-40-09PA [address] [address]OQ: 11/28/2017 Secondary NOT GIVENUNK [place] Insurance:SELF PAY [facility] Number: Effective Repository Date:2017-11-28 11/28/2017 Williams D Primary Williams D [place] [id number] Insurance:HUMANA BeasleyDOB: [place] [facility] [id number] [facility] [place] Number: Repository [address]316Arg: 330 [id number] [phone] (HP) Date:7324-81-24QM [address] [place] [address]NW: 11/28/2017 Secondary NOT GIVENUNK [place] Insurance:SELF PAY [facility] Number: Effective Repository Date:2017-11-28 11/28/2017 Williams D Primary Williams D Tali [id number] Insurance:HUMANA BeasleyDOB: [place] [facility] [id number] Valley Cancer [facility] [place] Number: Repository [address]365Zvi: 330 [id number] [phone] (HP) Date:9339-85-36DJ [address] [address]YT: 11/28/2017 Secondary NOT GIVENUNK [place] Insurance:SELF PAY [facility] Number: Effective Repository Date:2017-11-28 11/28/2017 Williams D Primary Williams D Tali [id number] Insurance:HUMANA BeasleyDOB: Community [place] [facility] [id number] Valley Medical Center, [place] Number: Repository [address]Xbh: 330 [id number] [phone] (HP) Date:1825-33-77BN [address] [address]VO: 11/28/2017 Secondary NOT GIVENUNK Tali Insurance:SELF PAY [facility] Number: Effective Repository Date:2017-11-28 11/28/2017 Williams D Primary Williams D Tali [id number] Insurance:HUMANA BeasleyDOB: [place] [facility] [id number] Valley Cancer Center [place] Number: Repository [address]Prz: 330 [id number] [phone] (HP) Date:1187-97-79SS [address] [address]EK: 11/28/2017 Secondary NOT GIVENUNK [place] Insurance:SELF PAY [facility] Number: Effective Repository Date:2017-11-28 11/28/2017 Williams D Primary Williams D Tali [id number] Insurance:HUMANA BeasleyDOB: Community [place] PPOPolicy [id number]: Repository [address]Bfn: 330 [id number] [phone] (HP) Date:7391-01-93RT [address] [address]JE: 11/28/2017 Secondary NOT GIVENUNK Tali Insurance:SELF PAY [facility] Number: Effective Repository Date:2017-11-28 11/28/2017 Williams D Primary Williams D Tali [id number] Insurance:HUMANA BeasleyDOB: Community [place] PPOPolicy [id number]: Repository [address]383Dnd: 330 [id number] [phone] (HP) Date:7745-46-46ZR [address] [place] [address]AD: 11/28/2017 Secondary NOT GIVENUNK [place] Insurance:SELF PAY [facility] Number: Effective Repository Date:2017-11-28 11/28/2017 Williams D Primary Williams D [place] [id number] Insurance:HUMANA BeasleyDOB: [facility] [place] PPOPolicy [id number], [place] Number: Repository [address]83Hzq: 330 [id number] [phone] (HP) Date:9594-71-83MM [address] [address]HV: 11/28/2017 Secondary NOT GIVENUNK [place] Insurance:SELF PAY [facility] Number: Effective Repository Date:2017-11-28 11/28/2017 Williams D Primary Williams D Tali [id number] Insurance:HUMANA BeasleyD[facility]: [facility] [id number] Repository [address]Hoc: (330 [id number] [phone] (HP) Date:7615-19-40LD [address] [address]XL: 11/28/2017 Secondary NOT GIVENUNK [place] Insurance:SELF PAY [facility] Number: Effective Repository Date:2017-11-28 11/28/2017 Williams D Primary Williams D [place] [id number] Insurance:HUMANA BeasleyDOB: [facility] [place] [facility] [id number]: Repository [address]227Jtb: (330 [id number] [phone] (HP) Date:3953-63-76UC [address] [address]IV: 11/28/2017 Secondary NOT GIVENUNK [place] Insurance:SELF PAY [facility] Number: Effective Repository Date:2017-11-28 11/28/2017 Williams D Primary Williams D [place] [id number] Insurance:HUMANA BeasleyDOB: [facility] [place] [facility] [id number]: Repository [address]Jme: (330) [id number] [phone] (HP) Date:0683-89-24VX [address] [address]CJ: 11/28/2017 Secondary NOT GIVENUNK [place] Insurance:SELF PAY [facility] Number: Effective Repository Date:2017-11-28 11/28/2017 Williams D Primary Williams D [place] [id number] Insurance:HUMANA BeasleyDOB: [facility] [place] [facility] [id number], [place] Number: Repository [address]Jnq: (330 [id number] [phone] (HP) Date:2698-70-55VC [address] [address]EL: 11/28/2017 Secondary NOT GIVENUNK [place] Insurance:SELF PAY [facility] Number: Effective Repository Date:2017-11-28 11/28/2017 Williams D Primary Williams D Tali [id number] Insurance:HUMANA BeasleyDOB: [facility] [place] PPOPolicy [id number]: Repository [address]Jsp: 330 [id number] [phone] (HP) Date:3314-62-42AZ [address] [address]YT: 11/28/2017 Secondary NOT GIVENUNK [place] Insurance:SELF PAY [facility] Number: Effective Repository Date:2017-11-28 11/28/2017 Williams D Primary Williams D [place] [id number] Insurance:HUMANA BeasleyDOB: [place] MEDICARE PPOPolicy [id number] [place] Number: Repository [id number]: 330 [id number] [phone] ([phone]) Date:[id number] [address] [address]NZ: 11/28/2017 Secondary NOT GIVENUNK [place] Insurance:SELF PAY [facility] Number: Effective Repository Date:2017-11-28 11/28/2017 Williams D Primary Williams D [place] [id number] Insurance:HUMANA [facility] PPOPolicy [id number] [facility] [place] Number: Repository [id number]: 330 [id number] [phone] (HP) Date:8783-62-98IE [address] [address]OF: 11/28/2017 Secondary NOT GIVENUNK [place] Insurance:SELF PAY [facility] Number: Effective Repository Date:2017-11-28 11/28/2017 Williams D Primary Williams D [place] [id number] Insurance:HUMANA BeasleyDOB: [place] MEDICARE PPOPolicy [id number] [place] Number: Repository [phone]: (330 [id number] [phone] (HP) Date:8783-04-19EZ [address] [address]KQ: 11/28/2017 Secondary NOT GIVENUNK [place] Insurance:SELF PAY [facility] Number: Effective Repository Date:2017-11-28 11/28/2017 Williams D Primary Williams D [place] [id number] Insurance:HUMANA BeasleyDOB: [place] MEDICARE [facility] [id number] Number: Repository [id number]: (330 [id number] [phone] (HP) Date:9055-77-21UW [address] [address]IA: 11/28/2017 Secondary NOT GIVENUNK [place] Insurance:SELF PAY [facility] Number: Effective Repository Date:2017-11-28 11/28/2017 WILLIAMS D Primary WILLIAMS D [place] [id number] Insurance:HUMANA BEASLEYDOB: [place] MEDICARE [facility] [id number] Repository [phone]: (330 [id number] [phone] (HP) Date:9976-27-77YV [address] [address]HN: 11/28/2017 Secondary NOT GIVENUNK [place] Insurance:SELF PAY [facility] Number: Effective Repository Date:2017-11-28 11/20/2017 WILLIAMS D Primary WILLIAMS D [place] [id number] Insurance:HUMANA BEASLEYDOB: [place] MEDICARE [facility] [id number] Repository [phone]: (330 [id number] [phone] (HP) Date:3070-79-47IE [address] [address]XW: 11/20/2017 Secondary NOT GIVENUNK [place] Insurance:SELF PAY [facility] Number: Effective Repository Date:2017-11-20 11/19/2017 WILLIAMS D Primary WILLIAMS D Tali [id number] Insurance:HUMANA BEASLEYDOB: [place] MEDIC[facility] [id number] Repository [phone]: 330 [id number] [phone] (HP) Date:7658-26-20RK [address] [address]RI: 11/19/2017 Secondary NOT GIVENUNK [place] Insurance:SELF PAY [facility] Number: Effective Repository Date:2017-11-19 11/19/2017 Williams D Primary Williams D [place] [id number] Insurance:HUMANA BeasleyDOB[facility] [id number] Number: Repository [phone]: 330 [id number] [phone] (HP) Date:6524-12-78PA [address] [place] [address]LD: 11/19/2017 Secondary NOT GIVENUNK [place] Insurance:SELF PAY [facility] Number: Effective Repository Date:2017-11-19 11/19/2017 Williams D Primary Williams D Tali [id number] Insurance:HUMANA BeasleyDOB: [facility] PPOPolicy [id number]ository [address]Cbi: 330 [id number] [phone] (HP) Date:8400-42-16JQ [address] [address]SE: 11/19/2017 Secondary NOT GIVENUNK [place] Insurance:SELF PAY [facility] Number: Effective Repository Date:2017-11-19 11/19/2017 Williams D Primary Williams D [place] [id number] Insurance:HUMANA BeasleyDOB: [facility] PPOPolicy [id number] Repository [id number]: (330 [id number] [phone] (HP) Date:4010-68-34AH [address] [place] [address]FM: 11/19/2017 Secondary NOT GIVENUNK [place] Insurance:SELF PAY [facility] Number: Effective Repository Date:2017-11-19 11/19/2017 Williams D Primary Williams D [place] [id number] Insurance:HUMANA BeasleyDOB: [place] [facility]IC[facility] [id number] Number: Repository [phone]: 330 [id number] [phone] (HP) Date:4556-64-10RI [address] [address]VD: 11/19/2017 Secondary NOT GIVENUNK [place] Insurance:SELF PAY [facility] Number: Effective Repository Date:2017-11-19 11/19/2017 Williams D Primary Williams D [place] [id number] Insurance:HUMANA BeasleyDOB: [place] [facility]IC[facility] [id number] Number[place] Repository [phone]: (330 [id number] [phone] (HP) Date:6735-82-98OH [address] [address]LP: 11/19/2017 Secondary NOT GIVENUNK [place] Insurance:SELF PAY [facility] Number: Effective Repository Date:2017-11-19 11/19/2017 Williams D Primary Williams D Tali [id number] Insurance:HUMANA BeasleyDOB: [place] [facility]IC[facility] [id number] Number: Repository [address]Hmh: (330 [id number] [phone] (HP) Date:2458-16-10DW [address] [address]NF: 11/19/2017 Secondary NOT GIVENUNK [place] Insurance:SELF PAY [facility] Number: Effective Repository Date:2017-11-19
== END 2018-08-08 15:23 | disposition home or self-care (01) ==
LOC: SDC 10:19 → AC 10:19
PROVIDERS: Family Provider Internal Medicine; PCP Internal Medicine; Referring Provider Surgery; Visit Provider Surgery
PROC: (CPT 36820; principal; 2018-08-08 12:15)
DX: I12.9 Hypertensive chronic kidney disease with stage 1 through stage 4 chronic kidney disease, or unspecified chronic kidney disease (principal); N18.4 Chronic kidney disease, stage 4 (severe); D63.1 Anemia in chronic kidney disease; E66.9 Obesity, unspecified; E11.319 Type 2 diabetes mellitus with unspecified diabetic retinopathy without macular edema; E11.40 Type 2 diabetes mellitus with diabetic neuropathy, unspecified; E78.5 Hyperlipidemia, unspecified; K21.9 Gastro-esophageal reflux disease without esophagitis; I25.2 Old myocardial infarction; H54.40 Blindness, one eye, unspecified eye; Z91.14 Patient's other noncompliance with medication regimen; Z68.34 Body mass index [BMI] 34.0-34.9, adult
CPT/HCPCS: 01844; 36820; 36415; 80048; 82962; 85027

== ENCOUNTER 2018-08-21 17:26 | Inpatient (IN) | payer MEDICARE, SELFPAY ==
[2018-08-21 17:27] VITALS: BP 203/105; PULSE 73; RESP 16; TEMP 36.4; O2SAT 95; BMI 36.1
--- NOTE | 2018-08-21 17:40 | EKG12_ITS ---
Test Reason : Blood Pressure : / mmHG Vent. Rate : 075 BPM Atrial Rate : 075 BPM P-R Int : 152 ms QRS Dur : 094 ms QT Int : 392 ms P-R-T Axes : 029 091 -29 degrees QTc Int : 437 ms Normal sinus rhythm Rightward axis Possible Anterior infarct , age undetermined T wave abnormality, consider inferior ischemia Abnormal ECG Confirmed by IBRAHIMA NORTON, MITCHELL ([id number]), editor newspaper TOBY WATSON ([id number]) on 08/22/2018 11:57:26 AM Referred By: RICHARD Confirmed By:MITCHELL ALEXANDRA MD
--- NOTE | 2018-08-21 17:45 | RAD_ITS ---
STUDY: X-RAY CHEST REASON FOR EXAM: Male, 47 years old. Edema TECHNIQUE: Single AP portable view of the chest. COMPARISON: 02/26/2018 FINDINGS: Lungs are expanded with superimposed interstitial edema, bilateral pleural effusions. Findings are consistent with CHF. No organized infiltrate. Normal size heart. Normal mediastinum and reena. Normal visualized pulmonary arteries. Normal visualized aortic arch and descending thoracic aorta. Normal visualized thoracic spine. Normal visualized ribs, clavicles, and shoulders. There is no demonstrated abnormality of the visualized soft tissue structures of the upper abdomen. RAD/Chest 1 View (Portable) IMPRESSION: Diffuse interstitial edema with bilateral pleural effusions. Follow-up recommended to assure resolution Electronically Signed: Pranav De Leon MD at 18:30 EST , Service support ,
[2018-08-21 18:10] LABS: Absolute Lymphocyte Count 1.36 X10^3/ul (0.83-4.51); Absolute Neutrophil Count 3.8 X10^3/uL (2.0-7.7); Basophil# 0.02 X10^3/uL; Basophil% 0.4 % (0-1); Eosinophil# 0.05 X10^3/uL; Eosinophils% 0.9 % (0-5); Hematocrit 30.3 % (40-54); Hemoglobin 10.3 g/dl (13.0-16.5); Lymphocyte # 1.36 X10^3/ul (4.0); Lymphocyte % 24.2 % (19-41); Mean Corpuscular Hgb 29.6 pg (27.0-32.0); Mean Corpuscular Volume 87.1 fL (80-94); Monocyte# 0.39 X10^3/uL; Neutrophil # 3.79 X10^3/uL (2.7-7.7); Neutrophil % 67.5 % (47-70); Platelet Count 202 K/mm3 (150-450); RBC Distribution Width CV 13.3 % (11.6-14.6); RBC Distribution Width SD 42.5 fl (35.1-43.9); Red Blood Count 3.48 M/mm3 (4.6-6.2); White Blood Count 5.6 K/mm3 (4.4-11.0)
[2018-08-21 18:13] LABS: POSITIVE COUNT NO; POSITIVE DIFFERENTIAL NO; POSITIVE MORPHOLOGY NO
[2018-08-21 18:21] LABS: Bacteria 0 SEEN /hpf (None Seen); Mucous, Urine 0 SEEN /hpf (<or=2+); Squamous Epithelial Cells - UA 0 SEEN /hpf (0-5); White Blood Cells 0 SEEN /hpf (0-5)
[2018-08-21 18:29] LABS: ALB/GLOB Ratio 0.6 RATIO (0.9-2.4); AST(SGOT) 26 U/L (15-37); Alanine Aminotransfer ALT/SGPT 37 U/L (16-61); Albumin, Serum 2.2 g/dL (3.2-5.0); Alkaline Phosphatase 152 U/L (45-117); Anion Gap 6 (5-15); BUN 66 mg/dL (7-18); BUN/Creat Ratio 11.8 RATIO (10-20); Calcium,Total 7.8 mg/dL (8.5-10.1); Chloride 114 mmol/L (98-107); EST Glomerular Filtration Rate 12 mL/min (>60); Est Glom Filt Rate - Afr Amer 14 mL/min (>60); Estimated Creatinine Clearance 15.44 ml/min; Globulin 3.6 g/dL (2.2-4.2); Glucose 152 mg/dL (74-106); Potassium 4.7 mmol/L (3.5-5.1); Protein, Total 5.8 g/dL (6.4-8.2); Sodium Level 143 mmol/L (136-145)
[2018-08-21 18:31] LABS: Color, Urine Yellow (Yellow); Glucose, Dipstick 250 mg/dl (Normal); Ketone-Dipstick Negative (Negative); Leukocyte Esterase-Dipstick Negative /ul (Negative); Nitrite-Dipstick Negative (Negative); Occult Blood-Urine 50 /ul (Negative); Protein-Dipstick 500 mg/dl (Negative); Specific Gravity, Urine 1.015 (1.002-1.030); Urine Bilirubin Dipstick Negative (Negative); Urine Clarity Clear (Clear); Urine Urobilinogen Normal (Normal)
[2018-08-21 18:38] VITALS: BMI 36.2
[2018-08-21 18:38] LABS: Red Blood Cells-Urine 0-5 SEEN /hpf (0-5)
[2018-08-21] MEDS: Furosemide 100 MG/10 ML Vial 80 MG IV (18:50)
--- NOTE | 2018-08-21 19:01 | ED.VISSUMM ---
- ER Visit Summary Date of Service: 08/21/18 Chief Complaint: [Swelling] History of Present Illness: The patient is a 47 M [presents the emergency department complaint of 2 weeks worth of edema and shortness of breath. Patient complains of exertional dyspnea. He has had a slight cough. He denies any fever. Said some intermittent chest discomfort retrosternally. Patient has a history of stage IV kidney disease and had a fistula placed in the right wrist recently. Patient states that he still makes urine. He normally takes 20 mg of Lasix twice daily at home. Patient does have a history of diabetes, hypertension, high cholesterol. Patient states that he saw his primary care physician 2 days ago and no changes in his medications were made. Patient does not see his ict quality assurance engineer again until the of this month.] Physical Examination: [HEENT-PERRLA, EOMI. Cranial nerves II through XII grossly intact. TMs clear. Mucous membranes moist. No adenopathy. Patient has JVD Cardiovascular-regular rate and rhythm without murmur or ectopy Lungs-good aeration noted with rales in both bases. No accessory muscle use or retractions. No significant tachypnea at rest. Abdomen-normoactive bowel sounds, soft, nontender, no rebound or rigidity, no peritoneal signs. Extremities-intact ?4, normal range of motion, normal pulses, atraumatic. Patient has +3 edema both lower extremities up to the thighs.] Test Results: [EKG obtained on arrival showed a sinus rhythm with a ventricular rate of [address] changes noted. Patient did have flipped T waves in the inferior leads and in lead V6 which are new when compared with prior EKG. CBC with differential obtained showed a white count of 5.6, hemoglobin 10, hematocrit 30, platelets 202. Chemistries unremarkable. BUN was 66 and creatinine 5.6. LFTs unremarkable. Alk phos was slightly elevated 152. Troponin was 0.017. BNP was 638. Chest x-ray obtained showed diffuse edema with bilateral effusions.] Emergency Department Course and Treatment: [Patient received 80 mg of Lasix IV] Treatment Plan: [Admit for diuresis and further management of his CHF and chronic renal failure] Disposition: [Admit] Impression: [Chronic renal failure CHF Edema] This note was generated with friendfundation software. It may contain incorrect words, spelling, and punctuation that were not noted in review of the chart prior to signing ED Disposition - Plan for ED Patient: Chief Complaint: Edema Referrals: Zaida Mcneil MD [Primary Care Provider] -
--- NOTE | 2018-08-21 19:04 | ED.DCSUM_ITS ---
- ER Visit Summary Date of Service: 08/21/18 Chief Complaint: [Swelling] History of Present Illness: The patient is a 47 M [presents the emergency department complaint of 2 weeks worth of edema and shortness of breath. Patient complains of exertional dyspnea. He has had a slight cough. He denies any fever. Said some intermittent chest discomfort retrosternally. Patient has a history of stage IV kidney disease and had a fistula placed in the right wrist recently. Patient states that he still makes urine. He normally takes 20 mg of Lasix twice daily at home. Patient does have a history of diabetes, hypertension, high cholesterol. Patient states that he saw his primary care physician 2 days ago and no changes in his medications were made. 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 Cranial nerves II through XII grossly intact. TMs clear. Mucous membranes moist. No adenopathy. Patient has JVD Cardiovascular-regular rate and rhythm without murmur or ectopy Lungs-good aeration noted with rales in both bases. No accessory muscle use or retractions. No significant tachypnea at rest. Abdomen-normoactive bowel sounds, soft, nontender, no rebound or rigidity, no peritoneal signs. Extremities-intact ?4, normal range of motion, normal pulses, atraumatic. Patient has +3 edema both lower extremities up to the thighs.] Test Results: [EKG obtained on arrival showed a sinus rhythm with a ventricular rate of [address] changes noted. Patient did have flipped T waves in the inferior leads and in lead V6 which are new when compared with prior EKG. CBC with differential obtained showed a white count of 5.6, hemoglobin 10, hematocrit 30, platelets 202. Chemistries unremarkable. BUN was 66 and creatinine 5.6. LFTs unremarkable. Alk phos was slightly elevated 152. Troponin was 0.017. BNP was 638. Chest x-ray obtained showed diffuse edema with bilateral effusions.] Emergency Department Course and Treatment: [Patient received 80 mg of Lasix IV] Treatment Plan: [Admit for diuresis and further management of his CHF and chronic renal failure] Disposition: [Admit] Impression: [Chronic renal failure CHF Edema] This note was generated with Access Northeast[employer] software. It may contain incorrect words, spelling, and punctuation that were not noted in review of the chart prior to signing ED Disposition - Plan for ED Patient: Chief Complaint: Edema Referrals: Zaida Mcneil MD [Primary Care Provider] -
[2018-08-21 19:23] VITALS: BMI 36.6
[2018-08-21 19:25] VITALS: PULSE 74
[2018-08-21 19:42] VITALS: BP 182/96; PULSE 72; RESP 18; TEMP 37.1; O2SAT 94
--- NOTE | 2018-08-21 20:08 | HP.PCM_ITS ---
Problem List (1) Anemia of chronic renal failure, stage 4 (severe) Status: Chronic (2) Acute on chronic diastolic CHF (congestive heart failure) Status: Acute (3) Diabetic neuropathy Status: Chronic (4) Diabetic nephropathy Status: Chronic (5) Diabetic retinopathy Status: Chronic (6) HTN (hypertension) Status: Chronic Qualifiers: (7) HLD (hyperlipidemia) Status: Chronic Qualifiers: (8) Anxiety and depression Status: Chronic (9) GERD (gastroesophageal reflux disease) Status: Chronic Qualifiers: History of Present Illness Date of Admission: 08/21/18 Chief Complaint: SOB The patient is a 47 year old M with PMH as below who presents with a 1-2-week history of worsening shortness of breath and a 20 pound weight gain. Also of note he has had difficulty controlling his blood pressures it appears since November of this year and has had been trialed on multiple different medications. He currently denies any headaches, vision changes, lightheadedness, dizziness, or syncope. He acknowledges the fact that a lot of the medical issues that he is suffering is because he was noncompliant with his diabetic medications as well as his diet. In the ER he was given a dose of 80 mg of IV Lasix, and was found to have a BNP of 638 which is confounded from his renal failure. Also his creatinine is a little bit higher than it had has been at 5.60 and he just recently had the creation of a fistula in his right wrist on August 08. His most recent echo was in November of this year which demonstrated an EF of 65%. Past Medical History Past Medical History (Chronic Problems): Chronic Problems (Last Reviewed 07/18/18 @ 14:09 by Luzmaria Mccullough) Ectopic cardiac beats (Chronic) Anemia of chronic renal failure, stage 4 (severe) (Chronic) Chronic renal failure, stage 4 (severe) (Chronic) Is currently following with nephrology. Also following with urology. Is trying to follow his low protein diet and feels he is doing well with it. Obesity (BMI 30-39.9) (Chronic) Noncompliance (Chronic) Diabetic neuropathy (Chronic) Diabetic nephropathy (Chronic) Diabetic retinopathy (Chronic) HTN (hypertension) (Chronic) HLD (hyperlipidemia) (Chronic) Blind left eye (Chronic) Diabetes mellitus type II, uncontrolled (Chronic) Dx : 1990 Discussed with patient need to check BG in pairs, learn carb counting and then we can determine I/C ratio for him at last visit. is doing well with his diet. He stopped his basalglar. He is willing to start again at lower dose and titrate back up. He will start at 10 units and increase by 2-3 units every 3 days if he is waking with higher BG than he went to bed with. I have also decrease his correction to 1-50 so that he is not going low after correction. I have given he an alternative correction scale to use if he needs less correction when he begins with higer dose of basaglar and finds his current correction may be too strong. On statin On asa Anxiety and depression (Chronic) GERD (gastroesophageal reflux disease) (Chronic) Chewing tobacco nicotine dependence (Chronic) History of acute myocardial infarction (Chronic) Medical History: Medical History (Last Reviewed 07/18/18 @ 14:09 by Luzmaria Mccullough) Anasarca associated with disorder of kidney (Acute) N04.9 Anemia of chronic renal failure, stage 4 (severe) (Chronic) N18.4, D63.1 Autonomic neuropathy (Suspected) G90.9 Chronic renal failure, stage 4 (severe) (Chronic) N18.4 Is currently following with nephrology. Also following with urology. Is trying to follow his low protein diet and feels he is doing well with it. Retention, urine (Acute) R33.9 Acute on chronic diastolic CHF (congestive heart failure) (Acute) I50.33 Acute hypoxemic respiratory failure (Ruled-out) J96.01 Hypoglycemia (Acute) E16.2 resolved in ED Acute respiratory failure with hypoxia (Ruled-out) J96.01 Obesity (BMI 30-39.9) (Chronic) E66.9 Noncompliance (Chronic) Z91.19 Diabetic neuropathy (Chronic) E11.40 Diabetic nephropathy (Chronic) E11.21 Diabetic retinopathy (Chronic) E11.319 HTN (hypertension) (Chronic) I10 HLD (hyperlipidemia) (Chronic) E78.5 Blind left eye (Chronic) H54.40 Diabetes mellitus type II, uncontrolled (Chronic) E11.65 Dx : 1993 Discussed with patient need to check BG in pairs, learn carb counting and then we can determine I/C ratio for him at last visit. is doing well with his diet. He stopped his basalglar. He is willing to start again at lower dose and titrate back up. He will start at 10 units and increase by 2-3 units every 3 days if he is waking with higher BG than he went to bed with. I have also decrease his correction to 1-50 so that he is not going low after correction. I have given he an alternative correction scale to use if he needs less correction when he begins with higer dose of basaglar and finds his current correction may be too strong. On statin On asa Anxiety and depression (Chronic) F41.9, F32.9 GERD (gastroesophageal reflux disease) (Chronic) K21.9 Chewing tobacco nicotine dependence (Chronic) F17.220 ILDA (acute kidney injury) (Ruled-out) N17.9 Right leg pain (Resolved) M79.604 Chronic ulcer of 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 (Resolved) L97.912 Cellulitis and abscess of right leg (Resolved) L03.115, L02.415 History of acute myocardial infarction (Chronic) I25.2 Kidney failure N19 Kidney stones N20.0 Pneumonia J18.9 Vision problems H54.7 Hypertensive emergency (Resolved) I16.1 Hypokalemia (Resolved) E87.6 Allergies No Known Allergies Allergy (Verified 08/04/18 09:24) Home Medications: Ambulatory Orders Medication Instructions Recorded Gabapentin [Neurontin] 300 mg PO TIDCM 07/15/13 Bupropion HCl [Wellbutrin Xl] 300 mg PO DAILY 05/06/17 Atorvastatin Calcium [Lipitor] 20 mg PO QHS 11/19/17 Atenolol [Tenormin (beta elizabeth)] 100 mg PO DAILY 11/28/17 acetaminophen 500 mg tablet 1,000 mg PO DAILY PRN PRN tab 01/20/18 tamsulosin 0.4 mg capsule 0.4 mg PO DAILY cap 01/20/18 Amlodipine [Norvasc] 5 mg PO DAILY 03/02/18 Insulin Aspart [Novolog Flexpen] 10 - 14 unit SQ TIDCM 03/02/18 hydralazine 25 mg tablet 25 mg PO TID 07/11/18 insulin glargine (U-100) 100 4 - 6 unit SQ QHS ml 07/11/18 unit/mL (3 mL) subcutaneous pen Calcitriol [Rocaltrol] 0.5 mcg PO DAILY 08/04/18 Aspirin [Aspirin, Baby] 81 mg PO DAILY@0800 08/21/18 Furosemide [Lasix] 20 mg PO BID 08/21/18 Surgical History: Surgical History (Last Updated 07/18/18 @ 14:10 by Luzmaria Mccullough) History of appendectomy Z90.49 History of eye surgery Z98.890 Lt retinal tear History of cholecystectomy Z90.49 Surgical History: cholecystectomy, - Psychiatric History: Anxiety, Depression Smoking Status: Never smoker Tobacco Use: Chew Alcohol: None Drugs: None - *Family History Maternal Family History: Family History (Last Reviewed 07/18/18 @ 14:10 by Luzmaria Mccullough) Mother Heart disease Hypertension Father Cancer Brother Cancer Diabetes Sister Diabetes History Items: Heart Disease Paternal Family History: Family History (Last Reviewed 07/18/18 @ 14:10 by Luzmaria Mccullough) Mother Heart disease Hypertension Father Cancer Brother Cancer Diabetes Sister Diabetes History Items: Cancer - Father w/ Colon CA. Sibling Family History: Family History (Last Reviewed 07/18/18 @ 14:10 by Luzmaria Mccullough) Mother Heart disease Hypertension Father Cancer Brother Cancer Diabetes Sister Diabetes History Items: Diabetes - sister, brother who passed, no kidney disease Review of Systems Constitutional: Denies: Chills, Fever, Weight Change HEENT: Denies: Head Aches, Sinus Congestion, Sinus Drainage Cardiovascular: Reports: Edema, Orthopnea. Denies: Chest Pain, Palpitations Respiratory: Reports: Shortness of Breath. Denies: Cough, Shortness of breath at rest, Sputum production Gastrointestinal: Denies: Abdominal Pain, Nausea, Vomiting Genitourinary: Denies: Dysuria Musculoskeletal: Denies: Joint Pain, Joint Tenderness Skin: Denies: Rash, Wounds Neurological: Denies: Numbness, Tingling, Focal weakness Psychiatric: Denies: Anxiety, Depression Hematologic/ Lymphatic: Denies: Easy Bruising, Easy Bleeding VTE Information - Inpt Only VTE Present on Admission: No - Physical Exam General: Alert, Oriented x3, Cooperative, No apparent distress HEENT: Atraumatic, PERRLA, EOMI, Normocephalic Oral: Dry Mucosa Neck: Supple, No JVD Lungs: Clear to auscultation, Normal air movement, No rhonchi, No wheeze, No rales Cardiovascular: Regular rate, Regular Rhythm, Normal S1, Normal S2, No murmurs Abdomen: Soft, Non Tender, Non-Distended, No Hepato-splenomegaly Extremities: Edema - 2+ pitting Skin: No rashes, No breakdown Neurological: Neuro grossly intact, Sensory exam intact to light touch and pain Psych/Mental Status: Normal Affect, Appropriate Vital Signs Temp Pulse Resp BP Pulse Ox 98.7 F 72 18 182/96 H 94 08/21/18 19:42 08/21/18 19:42 08/21/18 19:42 08/21/18 19:42 08/21/18 19:42 Oxygen Delivery Method Room Air Weight: 240 lb 8 oz Body Mass Index (BMI) 36.6 Finger Stick Blood Glucose 149 Laboratory Tests Past 24 Hrs 08/21/18 08/21/18 08/21/18 18:03 18:03 18:03 WBC 5.6 RBC 3.48 L Hgb 10.3 L Hct 30.3 L MCV 87.1 MCH 29.6 MCHC 34.0 RDW 13.3 RDW Differential 42.5 Plt Count 202 MPV 9.0 Immature Gran % (Auto) 0.000 Neut % (Auto) 67.5 Lymph % (Auto) 24.2 [place] % (Auto) 7.0 Eos % (Auto) 0.9 Baso % (Auto) 0.4 Absolute Neuts (auto) 3.8 Absolute Lymphs (auto) 1.36 Total Counted Not Reportable Sodium 143 Potassium 4.7 Chloride 114 H Carbon Dioxide 23.0 Anion Gap 6 BUN 66 H Creatinine 5.60 H Estim Creat Clear Calc 15.44 Est GFR (MDRD) Af Amer 14 L Est GFR (MDRD) Non-Af 12 L BUN/Creatinine Ratio 11.8 Glucose 152 H Calcium 7.8 L Total Bilirubin 0.20 AST 26 ALT 37 Alkaline Phosphatase 152 H Troponin I 0.017 B-Natriuretic Peptide 638.0 H Total Protein 5.8 L Albumin 2.2 L Globulin 3.6 Albumin/Globulin Ratio 0.6 L Urine Color Urine Clarity Urine pH Ur Specific [place] Urine Protein Urine Glucose (UA) Urine Ketones Urine Occult Blood Urine Nitrite Urine Bilirubin Urine Urobilinogen Ur Leukocyte Esterase Urine RBC Urine WBC Ur Squamous Epith Cells Urine Bacteria Urine Mucus 08/21/18 18:15 WBC RBC Hgb Hct MCV MCH MCHC RDW RDW Differential Plt Count MPV Immature Gran % (Auto) Neut % (Auto) Lymph % (Auto) [place] % (Auto) Eos % (Auto) Baso % (Auto) Absolute Neuts (auto) Absolute Lymphs (auto) Total Counted Sodium Potassium Chloride Carbon Dioxide Anion Gap BUN Creatinine Estim Creat Clear Calc Est GFR (MDRD) Af Amer Est GFR (MDRD) Non-Af BUN/Creatinine Ratio Glucose Calcium Total Bilirubin AST ALT Alkaline Phosphatase Troponin I B-Natriuretic Peptide Total Protein Albumin Globulin Albumin/Globulin Ratio Urine Color Yellow Urine Clarity Clear Urine pH 6.0 Ur Specific [place] 1.015 Urine Protein 500 H Urine Glucose (UA) 250 H Urine Ketones Negative Urine Occult Blood 50 H Urine Nitrite Negative Urine Bilirubin Negative Urine Urobilinogen Normal Ur Leukocyte Esterase Negative Urine RBC 0-5 SEEN Urine WBC 0 SEEN Ur Squamous Epith Cells 0 SEEN Urine Bacteria 0 SEEN Urine Mucus 0 SEEN Assessment/Plan All Active Problems (Last Reviewed 07/18/18 @ 14:09 by Luzmaria Mccullough) Anasarca associated with disorder of kidney (Acute) Retention, urine (Acute) Acute on chronic diastolic CHF (congestive heart failure) (Acute) Acute hypoxemic respiratory failure (Ruled-out) Hypoglycemia (Acute) Acute respiratory failure with hypoxia (Ruled-out) ILDA (acute kidney injury) (Ruled-out) Right leg pain (Resolved) Chronic ulcer of 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 (Resolved) Cellulitis and abscess of right leg (Resolved) Hypertensive emergency (Resolved) Hypokalemia (Resolved) 1. Acute on chronic diastolic CHF/HTN urgency/CKD4/Anemia of chronic disease - Will obtain echo - IV lasix 40 mg BID - C/w his home medications and monitor his BP in response to the lasix - Troponin 0.017 and BNP was 638 though partly elevated from renal failure - Daily weight and fluid restriction to 1500 cc 2. Uncontrolled DM2 with nephropathy, retinopathy, and neuropathy - Continued his home insulin with SSI - Accuchecks, BG 152 today - c/w his neurontin 3. Depression/Anxiety - stable at the moment - c/w wellbutrin DVT: Heparin Code Visit Inpatient E&M: 69571 Init Hosp L3
[2018-08-21 22:40] LABS: Bedside Glucose 186 mg/dL (70-110)
[2018-08-21 22:41] VITALS: PULSE 80
[2018-08-21] MEDS: hydrALAZINE 25 MG Tablet PO (22:41)
[2018-08-21] MEDS: Atorvastatin Calcium 20 MG Tablet PO (22:42)
[2018-08-21] MEDS: Heparin Injection (Vial) 5,000 UNIT/ML VIAL 5000 UNIT SC (22:42)
[2018-08-21] MEDS: Insulin Lispro 100 UNIT/ML INSULN.PEN SQ (22:42)
[2018-08-21 22:47] VITALS: BP 166/95; PULSE 80; RESP 18; TEMP 36.7; O2SAT 92
[2018-08-21 23:36] VITALS: PULSE 77
[2018-08-22] VITALS (15 sets, daily range): BP systolic 144–168; BP diastolic 75–93; PULSE 70–78; RESP 14–18; TEMP 36.4–36.8; O2SAT 92–98
[2018-08-22 03:12] LABS: Absolute Lymphocyte Count 1.44 X10^3/ul (0.83-4.51); Absolute Neutrophil Count 3.6 X10^3/uL (2.0-7.7); Basophil# 0.02 X10^3/uL; Basophil% 0.4 % (0-1); Eosinophil# 0.07 X10^3/uL; Eosinophils% 1.3 % (0-5); Hematocrit 27.5 % (40-54); Hemoglobin 9.3 g/dl (13.0-16.5); Lymphocyte # 1.44 X10^3/ul (4.0); Lymphocyte % 26.2 % (19-41); Mean Corp Hgb Conc 33.8 g/gl (32-36); Mean Corpuscular Hgb 29.9 pg (27.0-32.0); Mean Corpuscular Volume 88.4 fL (80-94); Mean Platelet Vol. 9.5 fl (6.2-12.0); Monocyte# 0.41 X10^3/uL; Monocyte% 7.5 % (0-10); Neutrophil # 3.55 X10^3/uL (2.7-7.7); Neutrophil % 64.6 % (47-70); Platelet Count 210 K/mm3 (150-450); RBC Distribution Width CV 12.9 % (11.6-14.6); RBC Distribution Width SD 39.9 fl (35.1-43.9); Red Blood Count 3.11 M/mm3 (4.6-6.2); White Blood Count 5.5 K/mm3 (4.4-11.0)
[2018-08-22 03:13] LABS: POSITIVE COUNT NO; POSITIVE DIFFERENTIAL NO; POSITIVE MORPHOLOGY NO
[2018-08-22 03:20] LABS: Anion Gap 8 (5-15); BUN 66 mg/dL (7-18); BUN/Creat Ratio 11.4 RATIO (10-20); Calcium,Total 7.9 mg/dL (8.5-10.1); Chloride 116 mmol/L (98-107); Creatinine, Serum 5.77 mg/dL (0.70-1.30); EST Glomerular Filtration Rate 11 mL/min (>60); Est Glom Filt Rate - Afr Amer 14 mL/min (>60); Estimated Creatinine Clearance 14.98 ml/min; Glucose 152 mg/dL (74-106); Potassium 4.5 mmol/L (3.5-5.1); Sodium Level 146 mmol/L (136-145)
[2018-08-22] MEDS: hydrALAZINE 25 MG Tablet PO ×3 (05:02→21:25)
--- NOTE | 2018-08-22 05:55 | ECHOD_ITS ---
Reason For Study: CHF Procedure This was a 2D Doppler, Color Flow transthoracic echocardiogram. Exam performed portable in patient room. Left Ventricle Moderate concentric left ventricular hypertrophy. The estimated ejection fraction is 65 %. Normal diastology for age. No regional wall motion abnormalities noted. Right Ventricle Normal size and thickness. Normal systolic function. Atria Normal left atrium. Normal right atrium. Normal atrial septum. Mitral Valve The mitral valve is structurally normal. No prolapse or stenosis seen. Tricuspid Valve Normal tricuspid valve. Trivial tricuspid valve insufficiency. Right ventricular systolic pressure estimated to be 37 mmHg. Mild pulmonary hypertension. Aortic Valve Normal aortic valve. Trisinus/trileaflet aortic valve. Pulmonic Valve Normal pulmonic valve. Great Vessels Normal aortic root. Normal arch. Normal inferior vena cava. Inferior vena cava collapse with sniff. Pericardium/Pleural Small pericardial effusion. Circumferential effusion. There are no echocardiographic indications of cardiac tamponade. MMode/2D Measurements & Calculations LVIDd: 4.4 cm IVSd: 1.5 cm Ao root diam: 3.3 cm LVIDs: 2.7 cm LVPWd: 1.3 cm LA dimension: 4.9 cm RVDd: 3.9 cm FS: 39.1 % LAV(MOD-bp): 89.0 ml LA A4 area: 25.8 cm2 RA A4 area: 20.4 cm2 LAV(MOD-bp) Indexed: 40.3 ml/m2 LAV(MOD-sp2): 70.0 ml LAV(MOD-sp4): 88.7 ml Time Measurements MV dec time: 0.19 sec Doppler Measurements & Calculations MV E max mariano: 134.7 cm/sec Lat Peak E' Mariano: 8.5 cm/sec Med Peak E' Mariano: 7.2 cm/sec MV A max mariano: 111.0 cm/sec E/E' lat: 15.9 E/E' med: 18.8 MV E/A: 1.2 MV V2 max: 143.8 cm/sec MV P1/2t max mariano: 140.1 cm/sec Ao V2 max: 152.2 cm/sec MV max P.3 mmHg MV P1/2t: 62.4 msec Ao max P.3 mmHg MV V2 mean: 84.5 cm/sec MV dec slope: 657.6 cm/sec2 MV mean P.4 mmHg MVA(P1/2t): 3.5 cm2 MV V2 VTI: 39.9 cm LV V1 max: 121.0 cm/sec PA V2 max: 98.9 cm/sec TR max mariano: 280.0 cm/sec LV V1 max P.9 mmHg TR max P.4 mmHg Interpretation Summary Moderate concentric left ventricular hypertrophy. The estimated ejection fraction is 65 %. Normal diastology for age. Trivial tricuspid valve insufficiency. Right ventricular systolic pressure estimated to be 37 mmHg. Mild pulmonary hypertension. Small pericardial effusion. Circumferential effusion. There are no echocardiographic indications of cardiac tamponade. Compared to echo report dated 11/20/2017, no appreciable changes noted. Ordering Physician: Oscar Ag Referring Physician: Zaida Mcneil Performed By: Antwon Shell RCS
--- NOTE | 2018-08-22 05:55 | EKG12_ITS ---
Test Reason : AM Blood Pressure : / mmHG Vent. Rate : 075 BPM Atrial Rate : 075 BPM P-R Int : 180 ms QRS Dur : 096 ms QT Int : 402 ms P-R-T Axes : 047 022 074 degrees QTc Int : 448 ms Normal sinus rhythm Nonspecific T wave abnormality Abnormal ECG When compared with ECG of 21-AUG-2018 17:47, MANUAL COMPARISON REQUIRED, DATA IS UNCONFIRMED Confirmed by IBRAHIMA NORTON, MITCHELL ([id number]), photographic editor TOBY WATSON ([id number]) on 08/25/2018 7:47:56 AM Referred By: CECI Confirmed By:MITCHELL ALEXANDRA MD
[2018-08-22 06:51] LABS: Bedside Glucose 122 mg/dL (70-110)
[2018-08-22] MEDS: Insulin Lispro 100 UNIT/ML INSULN.PEN 12 UNIT SC ×2 (08:30→17:25)
[2018-08-22] MEDS: Tamsulosin HCl 0.4 MG Capsule PO (08:31)
[2018-08-22] MEDS: amLODIPine 5 MG Tablet PO (08:31)
[2018-08-22] MEDS: Gabapentin 300 MG Capsule PO ×3 (08:31→17:25)
[2018-08-22] MEDS: Furosemide 40 MG/4 ML Vial IV ×2 (08:31→17:25)
[2018-08-22] MEDS: Calcitriol 0.25 MCG Capsule 0.5 MCG PO (08:31)
[2018-08-22] MEDS: buPROPion (XL) 300 MG TABLET.XL PO (08:32)
[2018-08-22] MEDS: Heparin Injection (Vial) 5,000 UNIT/ML VIAL 5000 UNIT SC ×2 (08:32→21:26)
[2018-08-22] MEDS: Atenolol 100 MG Tablet PO (08:32)
[2018-08-22] MEDS: Aspirin 81 MG TAB.CHEW PO (08:32)
[2018-08-22] MEDS: 0.9% NaCl Peripheral Flush Adult/Peds IV (08:34)
--- NOTE | 2018-08-22 09:39 | CASEMGMT ---
ANDER GUERRA assessment: Face to Face with patient for initial transition planning/care coordination assessment. ANDER GUERRA introduced self and role at [facility], pt voices understanding and consents to assessment at this time. Pt is sitting up in chair in no distress at this time. Pt is A/Ox4 at this time and answers all questions appropriately at this time. Care providers, pharmacy, and demographics verified/updated at this time. PCP: [facility] Specialists: Shadia Merritt Pharmacy: [facility] Insurance: [facility] Prescription Benefit: [facility] Living Will/HPOA: Pt states does not have LW/HPOA but is interested info at this time. Referral to Leon[facility]ALY, voices understanding and provided AD paperwork to pt. LNOK: Ying Amin, girlfriend Living Arrangements: Pt states lives with girlfriend in 1 story home and states no concerns at home at this time. Pt states no concerns completing ADL's. Transportation: Pt states girlfriend drives and states no transportation concerns at this time. DME/HHC: Pt states has the following DME: cane, walker, shower chair, and cpap thru [facility]. Pt states is working on getting cpap transferred. Pt states has no hx of HHC or SNF in the past. Pt states see nephrology but is 'not on dialysis yet.' Pt states no concerns with going home at time of discharge. Pt states is disabled. Pt states does not smoke or drink ETOH. Pt states no further concerns/needs at this time. CM to follow for any further discharge planning/needs. Advised pt to ask for CM if any further questions/concerns/needs arise, voices understanding. Plan: [place] ANDER GUERRA
[2018-08-22 11:46] LABS: Bedside Glucose 67 mg/dL (70-110)
--- NOTE | 2018-08-22 11:50 | CASEMGMT ---
Patient wanted information on advance directives. SW gave him the documents and explained them. SW also gave him the Social Work pamphlet for the outpatient completion of advance directives. Kiara RUIZ MSW
[2018-08-22 12:25] LABS: Bedside Glucose 93 mg/dL (70-110)
--- NOTE | 2018-08-22 14:22 | PCM.CONS.R ---
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 He is in isolation now for diarrhea that started today. He was given iv lasix 80mg in ER now on 40mg twice a day diuresing well. He had an AV fistula placed in the right wrist 08/08 stage 1 procedure. Patient states that he still makes urine. He normally takes 20 mg of Lasix twice daily at home. He denies nausea, vomiting, anorexia. Denied abdominal pain. He is admitted for volume control. - Allergies Allergies: Allergies No Known Allergies Allergy (Verified 08/04/18 09:24) - Current Medications Current Medications: Current Medications Acetaminophen (Tylenol) 1,000 mg PO DAILY PRN PRN PRN Reason: PAIN Amlodipine Besylate (Norvasc) 5 mg PO DAILY [facility] Last Admin: 08/22/18 08:31 Dose: 5 mg Aspirin (Aspirin, Baby) 81 mg PO DAILY@0800 [facility] Last Admin: 08/22/18 08:32 Dose: 81 mg Atenolol (Tenormin (Beta Silvana)) 100 mg PO DAILY [facility] Last Admin: 08/22/18 08:32 Dose: 100 mg Atorvastatin Calcium (Lipitor) 20 mg PO QHS [facility] Last Admin: 08/21/18 22:42 Dose: 20 mg Bupropion HCl (Wellbutrin Xl) 300 mg PO DAILY [facility] Last Admin: 08/22/18 08:32 Dose: 300 mg Calcitriol (Rocaltrol) 0.5 mcg PO DAILY [facility] Last Admin: 08/22/18 08:31 Dose: 0.5 mcg Dextrose (D50w Syringe) 0 gm IV X1 PRN; Protocol PRN Reason: Hypoglycemia Furosemide (Lasix) 40 mg IV BID@1000,1800 [facility] Last Admin: 08/22/18 08:31 Dose: 40 mg Gabapentin (Neurontin) 300 mg PO TIDCM [facility] Last Admin: 08/22/18 11:38 Dose: 300 mg Glucagon () 1 mg IM .X1 PRN PRN Reason: Hypoglycemia Heparin Sodium (Porcine) (Heparin Na) 5,000 unit SC Q12 [facility] Last Admin: 08/22/18 08:32 Dose: 5,000 unit Hydralazine HCl (Apresoline) 25 mg PO TID [facility] Last Admin: 08/22/18 05:02 Dose: 25 mg Insulin Glargine (Lantus (Bkc)) 6 units SC QHS [facility] Last Admin: 08/21/18 22:43 Dose: 6 u Insulin Human Lispro (Humalog Kwikpen (Bk)) 0 unit SQ ACHS [facility]; Protocol Last Admin: 08/22/18 11:38 Dose: Not Given Insulin Human Lispro (Humalog Kwikpen (Bkc)) 12 unit SC TIDCM [facility] Last Admin: 08/22/18 11:38 Dose: Not Given Magnesium Hydroxide (Milk Of Magnesia) 30 ml PO DAILY PRN PRN Reason: Constipation Sodium Chloride () 5 - 15 ml IV UD PRN PRN Reason: SALINE FLUSH Last Admin: 08/22/18 08:34 Dose: 10 ml Tamsulosin HCl (Flomax) 0.4 mg PO DAILY [facility] Last Admin: 08/22/18 08:31 Dose: 0.4 mg - Past Medical History Past Medical History (Chronic Problems): Chronic Problems (Last Reviewed 07/18/18 @ 14:09 by Luzmaria Mccullough) Ectopic cardiac beats (Chronic) Anemia of chronic renal failure, stage 4 (severe) (Chronic) Chronic renal failure, stage 4 (severe) (Chronic) Is currently following with nephrology. Also following with urology. Is trying to follow his low protein diet and feels he is doing well with it. Obesity (BMI 30-39.9) (Chronic) Noncompliance (Chronic) Diabetic neuropathy (Chronic) Diabetic nephropathy (Chronic) Diabetic retinopathy (Chronic) HTN (hypertension) (Chronic) HLD (hyperlipidemia) (Chronic) Blind left eye (Chronic) Diabetes mellitus type II, uncontrolled (Chronic) Dx : 1991 Discussed with patient need to check BG in pairs, learn carb counting and then we can determine I/C ratio for him at last visit. is doing well with his diet. He stopped his basalglar. He is willing to start again at lower dose and titrate back up. He will start at 10 units and increase by 2-3 units every 3 days if he is waking with higher BG than he went to bed with. I have also decrease his correction to 1-50 so that he is not going low after correction. I have given he an alternative correction scale to use if he needs less correction when he begins with higer dose of basaglar and finds his current correction may be too strong. On statin On asa Anxiety and depression (Chronic) GERD (gastroesophageal reflux disease) (Chronic) Chewing tobacco nicotine dependence (Chronic) History of acute myocardial infarction (Chronic) - Past Surgical History Surgical History: cholecystectomy, - - AVF rt forearm 08/08/18 - Social History Marital Status: Smoking Status: Never smoker Alcohol: None Drugs: None - Family History Maternal Family History: Family History (Last Reviewed 07/18/18 @ 14:10 by Luzmaria Mccullough) Mother Heart disease Hypertension Father Cancer Brother Cancer Diabetes Sister Diabetes History Items: Heart Disease Paternal Family History: Family History (Last Reviewed 07/18/18 @ 14:10 by Luzmaria Mccullough) Mother Heart disease Hypertension Father Cancer Brother Cancer Diabetes Sister Diabetes History Items: Cancer - Father w/ Colon CA. Sibling Family History: Family History (Last Reviewed 07/18/18 @ 14:10 by Luzmaria Mccullough) Mother Heart disease Hypertension Father Cancer Brother Cancer Diabetes Sister Diabetes History Items: Diabetes - sister, brother who passed, no kidney disease Review of Systems Constitutional: Denies: Anorexia, Chills, Fever, Weakness, Fatigue Eyes: Denies: Blurred vision HEENT: Denies: Head Aches Cardiovascular: Reports: Chest Pain, Edema. Denies: Palpitations, Syncope Respiratory: Reports: Cough, Shortness of Breath Gastrointestinal: Reports: Diarrhea. Denies: Abdominal Pain, Constipation, Hematemesis, Hematochezia, Nausea, Vomiting Genitourinary: Reports: Frequency, - - good urine output with iv lasix Musculoskeletal: Reports: - - rt forearm +Thrill, bruit Skin: Denies: Rash Neurological: Denies: Balance problems Psychiatric: Reports: Anxiety. Denies: Depression Hematologic/ Lymphatic: Reports: Anemia - Physical Exam General: Alert, Oriented x3, Cooperative, No apparent distress HEENT: PERRLA, EOMI Oral: Moist Mucosa Lungs: Clear to auscultation Cardiovascular: Regular rate, Murmur, No rub noted Abdomen: Bowel Sounds Present, Soft, Non Tender, Non-Distended, Obese Extremities: Edema - 1+ Musculoskeletal: No Muscle Wasting Lymphatic: No Cervical, Supraclavicular, or Inguinal Adenopathy Neurological: Cranial nerves II-XII grossly intact Psych/Mental Status: Normal Affect, Appropriate, Alert and oriented to time, place, person, mood and affect Vital Signs Temp Pulse Resp BP Pulse Ox 98.3 F 78 14 150/76 H 98 08/22/18 10:35 08/22/18 11:00 08/22/18 10:35 08/22/18 10:35 08/22/18 10:35 Oxygen Delivery Method Room Air Weight: 108.9 kg Body Mass Index (BMI) 36.6 Finger Stick Blood Glucose 149 Intake and Output for Last 24 Hours 08/20/18 08/21/18 08/22/18 23:59 23:59 23:59 Intake Total 120 / 120 760 / 760 Output Total 600 / 600 550 / 550 Balance -480 / -480 210 / 210 Laboratory Tests Past 24 Hrs 08/21/18 08/21/18 08/21/18 18:03 18:03 18:03 WBC 5.6 RBC 3.48 L Hgb 10.3 L Hct 30.3 L MCV 87.1 MCH 29.6 MCHC 34.0 RDW 13.3 RDW Differential 42.5 Plt Count 202 MPV 9.0 Immature Gran % (Auto) 0.000 Neut % (Auto) 67.5 Lymph % (Auto) 24.2 [place] % (Auto) 7.0 Eos % (Auto) 0.9 Baso % (Auto) 0.4 Absolute Neuts (auto) 3.8 Absolute Lymphs (auto) 1.36 Total Counted Not Reportable Sodium 143 Potassium 4.7 Chloride 114 H Carbon Dioxide 23.0 Anion Gap 6 BUN 66 H Creatinine 5.60 H Estim Creat Clear Calc 15.44 Est GFR (MDRD) Af Amer 14 L Est GFR (MDRD) Non-Af 12 L BUN/Creatinine Ratio 11.8 Glucose 152 H Calcium 7.8 L Total Bilirubin 0.20 AST 26 ALT 37 Alkaline Phosphatase 152 H Troponin I 0.017 B-Natriuretic Peptide 638.0 H Total Protein 5.8 L Albumin 2.2 L Globulin 3.6 Albumin/Globulin Ratio 0.6 L Urine Color Urine Clarity Urine pH Ur Specific [place] Urine Protein Urine Glucose (UA) Urine Ketones Urine Occult Blood Urine Nitrite Urine Bilirubin Urine Urobilinogen Ur Leukocyte Esterase Urine RBC Urine WBC Ur Squamous Epith Cells Urine Bacteria Urine Mucus 08/21/18 08/21/18 08/21/18 18:15 21:15 23:25 WBC RBC Hgb Hct MCV MCH MCHC RDW RDW Differential Plt Count MPV Immature Gran % (Auto) Neut % (Auto) Lymph % (Auto) [place] % (Auto) Eos % (Auto) Baso % (Auto) Absolute Neuts (auto) Absolute Lymphs (auto) Total Counted Sodium Potassium Chloride Carbon Dioxide Anion Gap BUN Creatinine Estim Creat Clear Calc Est GFR (MDRD) Af Amer Est GFR (MDRD) Non-Af BUN/Creatinine Ratio Glucose Calcium Total Bilirubin AST ALT Alkaline Phosphatase Troponin I 0.022 0.021 B-Natriuretic Peptide Total Protein Albumin Globulin Albumin/Globulin Ratio Urine Color Yellow Urine Clarity Clear Urine pH 6.0 Ur Specific [place] 1.015 Urine Protein 500 H Urine Glucose (UA) 250 H Urine Ketones Negative Urine Occult Blood 50 H Urine Nitrite Negative Urine Bilirubin Negative Urine Urobilinogen Normal Ur Leukocyte Esterase Negative Urine RBC 0-5 SEEN Urine WBC 0 SEEN Ur Squamous Epith Cells 0 SEEN Urine Bacteria 0 SEEN Urine Mucus 0 SEEN 08/22/18 08/22/18 08/22/18 02:45 02:45 02:45 WBC 5.5 RBC 3.11 L Hgb 9.3 L Hct 27.5 L MCV 88.4 MCH 29.9 MCHC 33.8 RDW 12.9 RDW Differential 39.9 Plt Count 210 MPV 9.5 Immature Gran % (Auto) 0.000 Neut % (Auto) 64.6 Lymph % (Auto) 26.2 [place] % (Auto) 7.5 Eos % (Auto) 1.3 Baso % (Auto) 0.4 Absolute Neuts (auto) 3.6 Absolute Lymphs (auto) 1.44 Total Counted Not Reportable Sodium 146 H Potassium 4.5 Chloride 116 H Carbon Dioxide 22.0 Anion Gap 8 BUN 66 H Creatinine 5.77 H Estim Creat Clear Calc 14.98 Est GFR (MDRD) Af Amer 14 L Est GFR (MDRD) Non-Af 11 L BUN/Creatinine Ratio 11.4 Glucose 152 H Calcium 7.9 L Total Bilirubin AST ALT Alkaline Phosphatase Troponin I 0.023 B-Natriuretic Peptide Total Protein Albumin Globulin Albumin/Globulin Ratio Urine Color Urine Clarity Urine pH Ur Specific [place] Urine Protein Urine Glucose (UA) Urine Ketones Urine Occult Blood Urine Nitrite Urine Bilirubin Urine Urobilinogen Ur Leukocyte Esterase Urine RBC Urine WBC Ur Squamous Epith Cells Urine Bacteria Urine Mucus POC Glucose 08/22/18 08/22/18 08/22/18 12:20 11:36 06:43 POC Glucose 93 67 L 122 H 08/21/18 22:35 POC Glucose 186 H Clinical Impression(s) from Imaging Studies Chest X-Ray 08/21/18 17:45 IMPRESSION: Diffuse interstitial edema with bilateral pleural effusions. Follow-up recommended to assure resolution Electronically Signed: Pranav De Leon MD at 18:30 EST , Service support , Assessment/Plan All Active Problems (Last Reviewed 07/18/18 @ 14:09 by Luzmaria Mccullough) Anasarca associated with disorder of kidney (Acute) Retention, urine (Acute) Acute on chronic diastolic CHF (congestive heart failure) (Acute) Acute hypoxemic respiratory failure (Ruled-out) Hypoglycemia (Acute) Acute respiratory failure with hypoxia (Ruled-out) ILDA (acute kidney injury) (Ruled-out) Right leg pain (Resolved) Chronic ulcer of 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 (Resolved) Cellulitis and abscess of right leg (Resolved) Hypertensive emergency (Resolved) Hypokalemia (Resolved) 1. CKD stage 5 s/p stage 1 AVF placement on 08/08. Currently without uremic symptoms. No urgency to initiate dialysis. Check 24h urine CRCL 2. Fluid overload. Low sodium diet. Continue with iv lasix. May need to cut back if hypernatremia, azotemia worsens. He has dependent edema from diastolic, obesity, nephrotic proteinuria. 3. Anemia stable 4. DM2 primary mgmt 5. HTN stable 6. Diarrhea, stool for cdiff pending. 7/ SPHT check PTH continue calcitriol 8. Morbid obesity
--- NOTE | 2018-08-22 14:26 | CON.PCM_ITS ---
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 He is in isolation now for diarrhea that started today. He was given iv lasix 80mg in ER now on 40mg twice a day diuresing well. He had an AV fistula placed in the right wrist 08/08 stage 1 procedure. Patient states that he still makes urine. He normally takes 20 mg of Lasix twice daily at home. He denies nausea, vomiting, anorexia. Denied abdominal pain. He is admitted for volume control. - Allergies Allergies: Allergies No Known Allergies Allergy (Verified 08/04/18 09:24) - Current Medications Current Medications: Current Medications Acetaminophen (Tylenol) 1,000 mg PO DAILY PRN PRN PRN Reason: PAIN Amlodipine Besylate (Norvasc) 5 mg PO DAILY [facility] Last Admin: 08/22/18 08:31 Dose: 5 mg Aspirin (Aspirin, Baby) 81 mg PO DAILY@0800 [facility] Last Admin: 08/22/18 08:32 Dose: 81 mg Atenolol (Tenormin (Beta Silvana)) 100 mg PO DAILY [facility] Last Admin: 08/22/18 08:32 Dose: 100 mg Atorvastatin Calcium (Lipitor) 20 mg PO QHS [facility] Last Admin: 08/21/18 22:42 Dose: 20 mg Bupropion HCl (Wellbutrin Xl) 300 mg PO DAILY [facility] Last Admin: 08/22/18 08:32 Dose: 300 mg Calcitriol (Rocaltrol) 0.5 mcg PO DAILY [facility] Last Admin: 08/22/18 08:31 Dose: 0.5 mcg Dextrose (D50w Syringe) 0 gm IV X1 PRN; Protocol PRN Reason: Hypoglycemia Furosemide (Lasix) 40 mg IV BID@1000,1800 [facility] Last Admin: 08/22/18 08:31 Dose: 40 mg Gabapentin (Neurontin) 300 mg PO TIDCM [facility] Last Admin: 08/22/18 11:38 Dose: 300 mg Glucagon () 1 mg IM .X1 PRN PRN Reason: Hypoglycemia Heparin Sodium (Porcine) (Heparin Na) 5,000 unit SC Q12 [facility] Last Admin: 08/22/18 08:32 Dose: 5,000 unit Hydralazine HCl (Apresoline) 25 mg PO TID [facility] Last Admin: 08/22/18 05:02 Dose: 25 mg Insulin Glargine (Lantus (Bkc)) 6 units SC QHS [facility] Last Admin: 08/21/18 22:43 Dose: 6 u Insulin Human Lispro (Humalog Kwikpen (Bk)) 0 unit SQ ACHS [facility]; Protocol Last Admin: 08/22/18 11:38 Dose: Not Given Insulin Human Lispro (Humalog Kwikpen (Bkc)) 12 unit SC TIDCM [facility] Last Admin: 08/22/18 11:38 Dose: Not Given Magnesium Hydroxide (Milk Of Magnesia) 30 ml PO DAILY PRN PRN Reason: Constipation Sodium Chloride () 5 - 15 ml IV UD PRN PRN Reason: SALINE FLUSH Last Admin: 08/22/18 08:34 Dose: 10 ml Tamsulosin HCl (Flomax) 0.4 mg PO DAILY [facility] Last Admin: 08/22/18 08:31 Dose: 0.4 mg - Past Medical History Past Medical History (Chronic Problems): Chronic Problems (Last Reviewed 07/18/18 @ 14:09 by Luzmaria Mccullough) Ectopic cardiac beats (Chronic) Anemia of chronic renal failure, stage 4 (severe) (Chronic) Chronic renal failure, stage 4 (severe) (Chronic) Is currently following with nephrology. Also following with urology. Is trying to follow his low protein diet and feels he is doing well with it. Obesity (BMI 30-39.9) (Chronic) Noncompliance (Chronic) Diabetic neuropathy (Chronic) Diabetic nephropathy (Chronic) Diabetic retinopathy (Chronic) HTN (hypertension) (Chronic) HLD (hyperlipidemia) (Chronic) Blind left eye (Chronic) Diabetes mellitus type II, uncontrolled (Chronic) Dx : 1991 Discussed with patient need to check BG in pairs, learn carb counting and then we can determine I/C ratio for him at last visit. is doing well with his diet. He stopped his basalglar. He is willing to start again at lower dose and titrate back up. He will start at 10 units and increase by 2-3 units every 3 days if he is waking with higher BG than he went to bed with. I have also decrease his correction to 1-50 so that he is not going low after correction. I have given he an alternative correction scale to use if he needs less correction when he begins with higer dose of basaglar and finds his current correction may be too strong. On statin On asa Anxiety and depression (Chronic) GERD (gastroesophageal reflux disease) (Chronic) Chewing tobacco nicotine dependence (Chronic) History of acute myocardial infarction (Chronic) - Past Surgical History Surgical History: cholecystectomy, - - AVF rt forearm 08/08/18 - Social History Marital Status: Smoking Status: Never smoker Alcohol: None Drugs: None - Family History Maternal Family History: Family History (Last Reviewed 07/18/18 @ 14:10 by Luzmaria Mccullough) Mother Heart disease Hypertension Father Cancer Brother Cancer Diabetes Sister Diabetes History Items: Heart Disease Paternal Family History: Family History (Last Reviewed 07/18/18 @ 14:10 by Luzmaria Mccullough) Mother Heart disease Hypertension Father Cancer Brother Cancer Diabetes Sister Diabetes History Items: Cancer - Father w/ Colon CA. Sibling Family History: Family History (Last Reviewed 07/18/18 @ 14:10 by Luzmaria Mccullough) Mother Heart disease Hypertension Father Cancer Brother Cancer Diabetes Sister Diabetes History Items: Diabetes - sister, brother who passed, no kidney disease Review of Systems Constitutional: Denies: Anorexia, Chills, Fever, Weakness, Fatigue Eyes: Denies: Blurred vision HEENT: Denies: Head Aches Cardiovascular: Reports: Chest Pain, Edema. Denies: Palpitations, Syncope Respiratory: Reports: Cough, Shortness of Breath Gastrointestinal: Reports: Diarrhea. Denies: Abdominal Pain, Constipation, Hematemesis, Hematochezia, Nausea, Vomiting Genitourinary: Reports: Frequency, - - good urine output with iv lasix Musculoskeletal: Reports: - - rt forearm +Thrill, bruit Skin: Denies: Rash Neurological: Denies: Balance problems Psychiatric: Reports: Anxiety. Denies: Depression Hematologic/ Lymphatic: Reports: Anemia - Physical Exam General: Alert, Oriented x3, Cooperative, No apparent distress HEENT: PERRLA, EOMI Oral: Moist Mucosa Lungs: Clear to auscultation Cardiovascular: Regular rate, Murmur, No rub noted Abdomen: Bowel Sounds Present, Soft, Non Tender, Non-Distended, Obese Extremities: Edema - 1+ Musculoskeletal: No Muscle Wasting Lymphatic: No Cervical, Supraclavicular, or Inguinal Adenopathy Neurological: Cranial nerves II-XII grossly intact Psych/Mental Status: Normal Affect, Appropriate, Alert and oriented to time, place, person, mood and affect Vital Signs Temp Pulse Resp BP Pulse Ox 98.3 F 78 14 150/76 H 98 08/22/18 10:35 08/22/18 11:00 08/22/18 10:35 08/22/18 10:35 08/22/18 10:35 Oxygen Delivery Method Room Air Weight: 108.9 kg Body Mass Index (BMI) 36.6 Finger Stick Blood Glucose 149 Intake and Output for Last 24 Hours 08/20/18 08/21/18 08/22/18 23:59 23:59 23:59 Intake Total 120 / 120 760 / 760 Output Total 600 / 600 550 / 550 Balance -480 / -480 210 / 210 Laboratory Tests Past 24 Hrs 08/21/18 08/21/18 08/21/18 18:03 18:03 18:03 WBC 5.6 RBC 3.48 L Hgb 10.3 L Hct 30.3 L MCV 87.1 MCH 29.6 MCHC 34.0 RDW 13.3 RDW Differential 42.5 Plt Count 202 MPV 9.0 Immature Gran % (Auto) 0.000 Neut % (Auto) 67.5 Lymph % (Auto) 24.2 [place] % (Auto) 7.0 Eos % (Auto) 0.9 Baso % (Auto) 0.4 Absolute Neuts (auto) 3.8 Absolute Lymphs (auto) 1.36 Total Counted Not Reportable Sodium 143 Potassium 4.7 Chloride 114 H Carbon Dioxide 23.0 Anion Gap 6 BUN 66 H Creatinine 5.60 H Estim Creat Clear Calc 15.44 Est GFR (MDRD) Af Amer 14 L Est GFR (MDRD) Non-Af 12 L BUN/Creatinine Ratio 11.8 Glucose 152 H Calcium 7.8 L Total Bilirubin 0.20 AST 26 ALT 37 Alkaline Phosphatase 152 H Troponin I 0.017 B-Natriuretic Peptide 638.0 H Total Protein 5.8 L Albumin 2.2 L Globulin 3.6 Albumin/Globulin Ratio 0.6 L Urine Color Urine Clarity Urine pH Ur Specific [place] Urine Protein Urine Glucose (UA) Urine Ketones Urine Occult Blood Urine Nitrite Urine Bilirubin Urine Urobilinogen Ur Leukocyte Esterase Urine RBC Urine WBC Ur Squamous Epith Cells Urine Bacteria Urine Mucus 08/21/18 08/21/18 08/21/18 18:15 21:15 23:25 WBC RBC Hgb Hct MCV MCH MCHC RDW RDW Differential Plt Count MPV Immature Gran % (Auto) Neut % (Auto) Lymph % (Auto) [place] % (Auto) Eos % (Auto) Baso % (Auto) Absolute Neuts (auto) Absolute Lymphs (auto) Total Counted Sodium Potassium Chloride Carbon Dioxide Anion Gap BUN Creatinine Estim Creat Clear Calc Est GFR (MDRD) Af Amer Est GFR (MDRD) Non-Af BUN/Creatinine Ratio Glucose Calcium Total Bilirubin AST ALT Alkaline Phosphatase Troponin I 0.022 0.021 B-Natriuretic Peptide Total Protein Albumin Globulin Albumin/Globulin Ratio Urine Color Yellow Urine Clarity Clear Urine pH 6.0 Ur Specific [place] 1.015 Urine Protein 500 H Urine Glucose (UA) 250 H Urine Ketones Negative Urine Occult Blood 50 H Urine Nitrite Negative Urine Bilirubin Negative Urine Urobilinogen Normal Ur Leukocyte Esterase Negative Urine RBC 0-5 SEEN Urine WBC 0 SEEN Ur Squamous Epith Cells 0 SEEN Urine Bacteria 0 SEEN Urine Mucus 0 SEEN 08/22/18 08/22/18 08/22/18 02:45 02:45 02:45 WBC 5.5 RBC 3.11 L Hgb 9.3 L Hct 27.5 L MCV 88.4 MCH 29.9 MCHC 33.8 RDW 12.9 RDW Differential 39.9 Plt Count 210 MPV 9.5 Immature Gran % (Auto) 0.000 Neut % (Auto) 64.6 Lymph % (Auto) 26.2 [place] % (Auto) 7.5 Eos % (Auto) 1.3 Baso % (Auto) 0.4 Absolute Neuts (auto) 3.6 Absolute Lymphs (auto) 1.44 Total Counted Not Reportable Sodium 146 H Potassium 4.5 Chloride 116 H Carbon Dioxide 22.0 Anion Gap 8 BUN 66 H Creatinine 5.77 H Estim Creat Clear Calc 14.98 Est GFR (MDRD) Af Amer 14 L Est GFR (MDRD) Non-Af 11 L BUN/Creatinine Ratio 11.4 Glucose 152 H Calcium 7.9 L Total Bilirubin AST ALT Alkaline Phosphatase Troponin I 0.023 B-Natriuretic Peptide Total Protein Albumin Globulin Albumin/Globulin Ratio Urine Color Urine Clarity Urine pH Ur Specific [place] Urine Protein Urine Glucose (UA) Urine Ketones Urine Occult Blood Urine Nitrite Urine Bilirubin Urine Urobilinogen Ur Leukocyte Esterase Urine RBC Urine WBC Ur Squamous Epith Cells Urine Bacteria Urine Mucus POC Glucose 08/22/18 08/22/18 08/22/18 12:20 11:36 06:43 POC Glucose 93 67 L 122 H 08/21/18 22:35 POC Glucose 186 H Clinical Impression(s) from Imaging Studies Chest X-Ray 08/21/18 17:45 IMPRESSION: Diffuse interstitial edema with bilateral pleural effusions. Follow-up recommended to assure resolution Electronically Signed: Pranav De Leon MD at 18:30 EST , Service support , Assessment/Plan All Active Problems (Last Reviewed 07/18/18 @ 14:09 by Luzmaria Mccullough) Anasarca associated with disorder of kidney (Acute) Retention, urine (Acute) Acute on chronic diastolic CHF (congestive heart failure) (Acute) Acute hypoxemic respiratory failure (Ruled-out) Hypoglycemia (Acute) Acute respiratory failure with hypoxia (Ruled-out) ILDA (acute kidney injury) (Ruled-out) Right leg pain (Resolved) Chronic ulcer of 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 (Resolved) Cellulitis and abscess of right leg (Resolved) Hypertensive emergency (Resolved) Hypokalemia (Resolved) 1. CKD stage 5 s/p stage 1 AVF placement on 08/08. Currently without uremic symptoms. No urgency to initiate dialysis. Check 24h urine CRCL 2. Fluid overload. Low sodium diet. Continue with iv lasix. May need to cut back if hypernatremia, azotemia worsens. He has dependent edema from diastolic, obesity, nephrotic proteinuria. 3. Anemia stable 4. DM2 primary mgmt 5. HTN stable 6. Diarrhea, stool for cdiff pending. 7/ SPHT check PTH continue calcitriol 8. Morbid obesity
--- NOTE | 2018-08-22 15:14 | PCM.PN.HOSP ---
Subjective: Patient was seen and examined. Been sleeping. Feels slightly better. Has been having diarrhea. No fever, chills or abdominal discomfort. Vitals/I&O's: Vital Signs Temp Pulse Resp BP Pulse Ox 98.3 F 78 18 150/76 H 98 08/22/18 10:35 08/22/18 11:00 08/22/18 14:18 08/22/18 10:35 08/22/18 10:35 Oxygen Delivery Method Room Air Weight: 108.9 kg Body Mass Index (BMI) 36.6 Finger Stick Blood Glucose 149 Intake and Output for Last 24 Hours 08/20/18 08/21/18 08/22/18 23:59 23:59 23:59 Intake Total 120 / 120 760 / 760 Output Total 600 / 600 550 / 550 Balance -480 / -480 210 / 210 General: Alert, Oriented x3, Cooperative, No apparent distress HEENT: Atraumatic, PERRLA, EOMI, Normocephalic Oral: Moist Mucosa Neck: Supple, No JVD, Negative Carotid Bruits Lungs: Normal air movement, Diminished - at the lung bases Cardiovascular: Regular rate, Regular Rhythm, Normal S1, Normal S2, No murmurs Abdomen: Bowel Sounds Present, Soft, Non Tender, Non-Distended, No Hepato-splenomegaly Extremities: Edema - +2, in DAYAN hoses Skin: No rashes, No breakdown Musculoskeletal: No Tenderness to Palpation of Joints or Extremities Lymphatic: No Cervical, Supraclavicular, or Inguinal Adenopathy Neurological: Cranial nerves II-XII grossly intact Psych/Mental Status: Normal Affect, Appropriate Laboratory Results 08/21/18 18:03: WBC 5.6, RBC 3.48 L, Hgb 10.3 L, Hct 30.3 L, MCV 87.1, MCH 29.6, MCHC 34.0, RDW 13.3, RDW Differential 42.5, Plt Count 202, MPV 9.0, Immature Gran % (Auto) 0.000, Neut % (Auto) 67.5, Lymph % (Auto) 24.2, Moore % (Auto) 7.0, Eos % (Auto) 0.9, Baso % (Auto) 0.4, Absolute Neuts (auto) 3.8, Absolute Lymphs (auto) 1.36, Total Counted Not Reportable 08/21/18 18:03: Sodium 143, Potassium 4.7, Chloride 114 H, Carbon Dioxide 23.0, Anion Gap 6, BUN 66 H, Creatinine 5.60 H, Estim Creat Clear Calc 15.44, Est GFR (MDRD) Af Amer 14 L, Est GFR (MDRD) Non-Af 12 L, BUN/Creatinine Ratio 11.8, Glucose 152 H, Calcium 7.8 L, Total Bilirubin 0.20, AST 26, ALT 37, Alkaline Phosphatase 152 H, Troponin I 0.017, Total Protein 5.8 L, Albumin 2.2 L, Globulin 3.6, Albumin/Globulin Ratio 0.6 L 08/21/18 18:03: B-Natriuretic Peptide 638.0 H 08/21/18 18:15: Urine Color Yellow, Urine Clarity Clear, Urine pH 6.0, Ur Specific [place] 1.015, Urine Protein 500 H, Urine Glucose (UA) 250 H, Urine Ketones Negative, Urine Occult Blood 50 H, Urine Nitrite Negative, Urine Bilirubin Negative, Urine Urobilinogen Normal, Ur Leukocyte Esterase Negative, Urine RBC 0-5 SEEN, Urine WBC 0 SEEN, Ur Squamous Epith Cells 0 SEEN, Urine Bacteria 0 SEEN, Urine Mucus 0 SEEN 08/21/18 21:15: Troponin I 0.022 08/21/18 22:35: POC Glucose 186 H 08/21/18 23:25: Troponin I 0.021 08/22/18 02:45: WBC 5.5, RBC 3.11 L, Hgb 9.3 L, Hct 27.5 L, MCV 88.4, MCH 29.9, MCHC 33.8, RDW 12.9, RDW Differential 39.9, Plt Count 210, MPV 9.5, Immature Gran % (Auto) 0.000, Neut % (Auto) 64.6, Lymph % (Auto) 26.2, Moore % (Auto) 7.5, Eos % (Auto) 1.3, Baso % (Auto) 0.4, Absolute Neuts (auto) 3.6, Absolute Lymphs (auto) 1.44, Total Counted Not Reportable 08/22/18 02:45: Sodium 146 H, Potassium 4.5, Chloride 116 H, Carbon Dioxide 22.0, Anion Gap 8, BUN 66 H, Creatinine 5.77 H, Estim Creat Clear Calc 14.98, Est GFR (MDRD) Af Amer 14 L, Est GFR (MDRD) Non-Af 11 L, BUN/Creatinine Ratio 11.4, Glucose 152 H, Calcium 7.9 L 08/22/18 02:45: Troponin I 0.023 08/22/18 06:43: POC Glucose 122 H 08/22/18 11:36: POC Glucose 67 L 08/22/18 12:20: POC Glucose 93 Current Medications Acetaminophen (Tylenol) 1,000 mg PO DAILY PRN PRN PRN Reason: PAIN Amlodipine Besylate (Norvasc) 5 mg PO DAILY [facility] Last Admin: 08/22/18 08:31 Dose: 5 mg Aspirin (Aspirin, Baby) 81 mg PO DAILY@0800 [facility] Last Admin: 08/22/18 08:32 Dose: 81 mg Atenolol (Tenormin (Beta Silvana)) 100 mg PO DAILY [facility] Last Admin: 08/22/18 08:32 Dose: 100 mg Atorvastatin Calcium (Lipitor) 20 mg PO QHS [facility] Last Admin: 08/21/18 22:42 Dose: 20 mg Bupropion HCl (Wellbutrin Xl) 300 mg PO DAILY [facility] Last Admin: 08/22/18 08:32 Dose: 300 mg Calcitriol (Rocaltrol) 0.5 mcg PO DAILY [facility] Last Admin: 08/22/18 08:31 Dose: 0.5 mcg Dextrose (D50w Syringe) 0 gm IV X1 PRN; Protocol PRN Reason: Hypoglycemia Furosemide (Lasix) 40 mg IV BID@1000,1800 [facility] Last Admin: 08/22/18 08:31 Dose: 40 mg Gabapentin (Neurontin) 300 mg PO TIDCM [facility] Last Admin: 08/22/18 11:38 Dose: 300 mg Glucagon () 1 mg IM .X1 PRN PRN Reason: Hypoglycemia Heparin Sodium (Porcine) (Heparin Na) 5,000 unit SC Q12 [facility] Last Admin: 08/22/18 08:32 Dose: 5,000 unit Hydralazine HCl (Apresoline) 25 mg PO TID [facility] Last Admin: 08/22/18 05:02 Dose: 25 mg Insulin Glargine (Lantus (Bkc)) 6 units SC QHS [facility] Last Admin: 08/21/18 22:43 Dose: 6 u Insulin Human Lispro (Humalog Kwikpen (Bk)) 0 unit SQ ACHS [facility]; Protocol Last Admin: 08/22/18 11:38 Dose: Not Given Insulin Human Lispro (Humalog Kwikpen (Bk)) 12 unit SC TIDCM [facility] Last Admin: 08/22/18 11:38 Dose: Not Given Magnesium Hydroxide (Milk Of Magnesia) 30 ml PO DAILY PRN PRN Reason: Constipation Sodium Chloride () 5 - 15 ml IV UD PRN PRN Reason: SALINE FLUSH Last Admin: 08/22/18 08:34 Dose: 10 ml Tamsulosin HCl (Flomax) 0.4 mg PO DAILY [facility] Last Admin: 08/22/18 08:31 Dose: 0.4 mg Medical Necessity - Tobacco Use Smoking Status: Never smoker Tobacco Use: Chew Assessment/Plan All Active Problems (Last Reviewed 07/18/18 @ 14:09 by Luzmaria Mccullough) Anasarca associated with disorder of kidney (Acute) Retention, urine (Acute) Acute on chronic diastolic CHF (congestive heart failure) (Acute) Acute hypoxemic respiratory failure (Ruled-out) Hypoglycemia (Acute) Acute respiratory failure with hypoxia (Ruled-out) ILDA (acute kidney injury) (Ruled-out) Right leg pain (Resolved) Chronic ulcer of 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 (Resolved) Cellulitis and abscess of right leg (Resolved) Hypertensive emergency (Resolved) Hypokalemia (Resolved) 47-year-old male with past medical history of CKD stage IV, hypertension, hyperlipidemia comes in with shortness of breath and weight gain. 1. Acute on chronic diastolic heart failure, on IV Lasix, continue strict I's and O's, monitor urine output 2. Hypertensive urgency, uncontrolled, continue on amlodipine, atenolol, 3. CKD stage IV, creatinine is close to what it was last, nephrology consulted, will trend labs 4. Anemia of CKD, stable 5. Type II DM complicated with retinopathy, neuropathy and nephropathy, sugars are fairly controlled, on insulin, gabapentin, 6. Anxiety/depression, on bupropion 7. DVT PPx- Heparin SC Code Visit Inpatient E&M: 36594 Subs Hosp L2
[2018-08-22 16:31] LABS: Bedside Glucose 147 mg/dL (70-110)
[2018-08-22] MEDS: Atorvastatin Calcium 20 MG Tablet PO (21:25)
[2018-08-22 21:36] LABS: Bedside Glucose 127 mg/dL (70-110)
[2018-08-23] VITALS (14 sets, daily range): BP systolic 138–163; BP diastolic 62–92; PULSE 67–77; RESP 16–18; TEMP 36.3–36.5; O2SAT 92–95
[2018-08-23] MEDS: hydrALAZINE 25 MG Tablet PO ×3 (06:47→21:06)
[2018-08-23 06:56] LABS: Bedside Glucose 115 mg/dL (70-110)
[2018-08-23 07:48] LABS: Hematocrit 29.5 % (40-54); Hemoglobin 9.9 g/dl (13.0-16.5); Mean Corp Hgb Conc 33.6 g/gl (32-36); Mean Corpuscular Hgb 30.1 pg (27.0-32.0); Mean Corpuscular Volume 89.7 fL (80-94); Mean Platelet Vol. 9.7 fl (6.2-12.0); Platelet Count 195 K/mm3 (150-450); RBC Distribution Width CV 13.1 % (11.6-14.6); RBC Distribution Width SD 41.5 fl (35.1-43.9); Red Blood Count 3.29 M/mm3 (4.6-6.2); White Blood Count 5.5 K/mm3 (4.4-11.0)
[2018-08-23 07:55] LABS: Scan Indicated on CBC? Y/N NO
[2018-08-23 08:15] LABS: Albumin, Serum 1.9 g/dL (3.2-5.0); BUN 63 mg/dL (7-18); Calcium,Total 7.7 mg/dL (8.5-10.1); Chloride 116 mmol/L (98-107); Creatinine, Serum 5.75 mg/dL (0.70-1.30); EST Glomerular Filtration Rate 11 mL/min (>60); Est Glom Filt Rate - Afr Amer 14 mL/min (>60); Estimated Creatinine Clearance 15.03 ml/min; Glucose 101 mg/dL (74-106); Phosphorus 5.8 mg/dL (2.5-4.9); Potassium 4.5 mmol/L (3.5-5.1); Sodium Level 143 mmol/L (136-145)
[2018-08-23 09:00] LABS: PTHIN 107.8 pg/mL (18.4-80.1)
[2018-08-23] MEDS: Aspirin 81 MG TAB.CHEW PO (09:07)
[2018-08-23] MEDS: Atenolol 100 MG Tablet PO (09:08)
[2018-08-23] MEDS: Gabapentin 300 MG Capsule PO ×3 (09:08→16:36)
[2018-08-23] MEDS: Furosemide 40 MG/4 ML Vial IV (09:08)
[2018-08-23] MEDS: Calcitriol 0.25 MCG Capsule 0.5 MCG PO (09:08)
[2018-08-23] MEDS: 0.9% NaCl Peripheral Flush Adult/Peds IV ×2 (09:08→17:56)
[2018-08-23] MEDS: Tamsulosin HCl 0.4 MG Capsule PO (09:08)
[2018-08-23] MEDS: buPROPion (XL) 300 MG TABLET.XL PO (09:08)
[2018-08-23] MEDS: Heparin Injection (Vial) 5,000 UNIT/ML VIAL 5000 UNIT SC ×2 (09:08→21:06)
[2018-08-23] MEDS: amLODIPine 5 MG Tablet PO (09:08)
[2018-08-23] MEDS: Insulin Lispro 100 UNIT/ML INSULN.PEN 12 UNIT SC (09:09)
[2018-08-23 12:31] LABS: Bedside Glucose 88 mg/dL (70-110)
--- NOTE | 2018-08-23 16:01 | PCM.PN.HOSP ---
Subjective: Patient seen and examined. Denies chest pain, dizziness or palpitations. Has loose stools. C. diff is negative Vitals/I&O's: Vital Signs Temp Pulse Resp BP Pulse Ox 97.3 F L 72 17 147/82 H 93 08/23/18 09:01 08/23/18 15:03 08/23/18 09:01 08/23/18 09:01 08/23/18 09:01 Oxygen Delivery Method Room Air Weight: 107.1 kg Body Mass Index (BMI) 36.6 Finger Stick Blood Glucose 149 Intake and Output for Last 24 Hours 08/21/18 08/22/18 08/23/18 23:59 23:59 23:59 Intake Total 120 / 120 1110 / 1110 490 / 490 Output Total 600 / 600 1050 / 1050 1200 / 1200 Balance -480 / -480 60 / 60 -710 / -710 General: Alert, Oriented x3, Cooperative, No apparent distress HEENT: Atraumatic, PERRLA, EOMI, Normocephalic Oral: Moist Mucosa Neck: Supple, No JVD, Negative Carotid Bruits Lungs: Clear to auscultation, Normal air movement Cardiovascular: Regular rate, Regular Rhythm, Normal S1, Normal S2, No murmurs Abdomen: Bowel Sounds Present, Soft, Non Tender, Non-Distended, No Hepato-splenomegaly Extremities: No edema Skin: No rashes, No breakdown Musculoskeletal: No Tenderness to Palpation of Joints or Extremities Lymphatic: No Cervical, Supraclavicular, or Inguinal Adenopathy Neurological: Cranial nerves II-XII grossly intact, Neuro grossly intact Psych/Mental Status: Normal Affect, Appropriate Microbiology Past 72 Hours 08/23/18 09:45 Stool C. difficile DNA Amplification - Final Laboratory Results 08/22/18 16:23: POC Glucose 147 H 08/22/18 21:22: POC Glucose 127 H 08/23/18 06:44: POC Glucose 115 H 08/23/18 07:16: Sodium 143, Potassium 4.5, Chloride 116 H, Carbon Dioxide 18.0 L, BUN 63 H, Creatinine 5.75 H, Estim Creat Clear Calc 15.03, Est GFR (MDRD) Af Amer 14 L, Est GFR (MDRD) Non-Af 11 L, BUN/Creatinine Ratio 11.0, Glucose 101, Calcium 7.7 L, Phosphorus 5.8 H, Albumin 1.9 L 08/23/18 07:16: PTH Intact 107.8 H 08/23/18 07:16: WBC 5.5, RBC 3.29 L, Hgb 9.9 L, Hct 29.5 L, MCV 89.7, MCH 30.1, MCHC 33.6, RDW 13.1, RDW Differential 41.5, Plt Count 195, MPV 9.7 08/23/18 12:27: POC Glucose 88 Current Medications Acetaminophen (Tylenol) 1,000 mg PO DAILY PRN PRN PRN Reason: PAIN Amlodipine Besylate (Norvasc) 5 mg PO DAILY [facility] Last Admin: 08/23/18 09:08 Dose: 5 mg Aspirin (Aspirin, Baby) 81 mg PO DAILY@0800 [facility] Last Admin: 08/23/18 09:07 Dose: 81 mg Atenolol (Tenormin (Beta Silvana)) 100 mg PO DAILY [facility] Last Admin: 08/23/18 09:08 Dose: 100 mg Atorvastatin Calcium (Lipitor) 20 mg PO QHS [facility] Last Admin: 08/22/18 21:25 Dose: 20 mg Bupropion HCl (Wellbutrin Xl) 300 mg PO DAILY [facility] Last Admin: 08/23/18 09:08 Dose: 300 mg Calcitriol (Rocaltrol) 0.5 mcg PO DAILY [facility] Last Admin: 08/23/18 09:08 Dose: 0.5 mcg Dextrose (D50w Syringe) 0 gm IV X1 PRN; Protocol PRN Reason: Hypoglycemia Furosemide (Lasix) 40 mg IV BID@1000,1800 [facility] Last Admin: 08/23/18 09:08 Dose: 40 mg Gabapentin (Neurontin) 300 mg PO TIDCM [facility] Last Admin: 08/23/18 12:28 Dose: 300 mg Glucagon () 1 mg IM .X1 PRN PRN Reason: Hypoglycemia Heparin Sodium (Porcine) (Heparin Na) 5,000 unit SC Q12 [facility] Last Admin: 08/23/18 09:08 Dose: 5,000 unit Hydralazine HCl (Apresoline) 25 mg PO TID [facility] Last Admin: 08/23/18 14:34 Dose: 25 mg Insulin Glargine (Lantus (Bkc)) 6 units SC QHS [facility] Last Admin: 08/22/18 21:25 Dose: 6 u Insulin Human Lispro (Humalog Kwikpen (Bkc)) 0 unit SQ ACHS [facility]; Protocol Last Admin: 08/23/18 12:28 Dose: Not Given Magnesium Hydroxide (Milk Of Magnesia) 30 ml PO DAILY PRN PRN Reason: Constipation Sodium Chloride () 5 - 15 ml IV UD PRN PRN Reason: SALINE FLUSH Last Admin: 08/23/18 09:08 Dose: 10 ml Tamsulosin HCl (Flomax) 0.4 mg PO DAILY [facility] Last Admin: 08/23/18 09:08 Dose: 0.4 mg Medical Necessity - Tobacco Use Smoking Status: Never smoker Tobacco Use: Chew Assessment/Plan All Active Problems (Last Reviewed 07/18/18 @ 14:09 by Luzmaria Mccullough) Anasarca associated with disorder of kidney (Acute) Retention, urine (Acute) Acute on chronic diastolic CHF (congestive heart failure) (Acute) Acute hypoxemic respiratory failure (Ruled-out) Hypoglycemia (Acute) Acute respiratory failure with hypoxia (Ruled-out) ILDA (acute kidney injury) (Ruled-out) Right leg pain (Resolved) Chronic ulcer of 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 (Resolved) Cellulitis and abscess of right leg (Resolved) Hypertensive emergency (Resolved) Hypokalemia (Resolved) 47-year-old male with past medical history of CKD stage IV, hypertension, hyperlipidemia comes in with shortness of breath and weight gain. 1. Acute on chronic diastolic heart failure, on IV Lasix, continue strict I's and O's, monitor urine output 2. Diarrhea, non-infective, enteric panel is negative, will monitor 3. Hypertensive urgency, uncontrolled, continue on amlodipine, atenolol, 4. CKD stage IV, stable, nephrology consulted, will trend labs 5. Anemia of CKD, stable 6. Type II DM complicated with retinopathy, neuropathy and nephropathy, sugars are fairly controlled, episodes of hypoglycemia, Discontinue premeal insulin, continue on Lantus and ISS as well as gabapentin, 7. Anxiety/depression, on bupropion 8. DVT PPx- Heparin SC Code Visit Inpatient E&M: [id number] Subs Hosp L2
--- NOTE | 2018-08-23 16:06 | PN_ITS ---
Subjective: Patient seen and examined. Denies chest pain, dizziness or palpitations. Has loose stools. C. diff is negative Vitals/I&O's: Vital Signs Temp Pulse Resp BP Pulse Ox 97.3 F L 72 17 147/82 H 93 08/23/18 09:01 08/23/18 15:03 08/23/18 09:01 08/23/18 09:01 08/23/18 09:01 Oxygen Delivery Method Room Air Weight: 107.1 kg Body Mass Index (BMI) 36.6 Finger Stick Blood Glucose 149 Intake and Output for Last 24 Hours 08/21/18 08/22/18 08/23/18 23:59 23:59 23:59 Intake Total 120 / 120 1110 / 1110 490 / 490 Output Total 600 / 600 1050 / 1050 1200 / 1200 Balance -480 / -480 60 / 60 -710 / -710 General: Alert, Oriented x3, Cooperative, No apparent distress HEENT: Atraumatic, PERRLA, EOMI, Normocephalic Oral: Moist Mucosa Neck: Supple, No JVD, Negative Carotid Bruits Lungs: Clear to auscultation, Normal air movement Cardiovascular: Regular rate, Regular Rhythm, Normal S1, Normal S2, No murmurs Abdomen: Bowel Sounds Present, Soft, Non Tender, Non-Distended, No Hepato- splenomegaly Extremities: No edema Skin: No rashes, No breakdown Musculoskeletal: No Tenderness to Palpation of Joints or Extremities Lymphatic: No Cervical, Supraclavicular, or Inguinal Adenopathy Neurological: Cranial nerves II-XII grossly intact, Neuro grossly intact Psych/Mental Status: Normal Affect, Appropriate Microbiology Past 72 Hours 08/23/18 09:45 Stool C. difficile DNA Amplification - Final Laboratory Results 08/22/18 16:23: POC Glucose 147 H 08/22/18 21:22: POC Glucose 127 H 08/23/18 06:44: POC Glucose 115 H 08/23/18 07:16: Sodium 143, Potassium 4.5, Chloride 116 H, Carbon Dioxide 18.0 L , BUN 63 H, Creatinine 5.75 H, Estim Creat Clear Calc 15.03, Est GFR (MDRD) Af Amer 14 L, Est GFR (MDRD) Non-Af 11 L, BUN/Creatinine Ratio 11.0, Glucose 101, Calcium 7.7 L, Phosphorus 5.8 H, Albumin 1.9 L 08/23/18 07:16: PTH Intact 107.8 H 08/23/18 07:16: WBC 5.5, RBC 3.29 L, Hgb 9.9 L, Hct 29.5 L, MCV 89.7, MCH 30.1, MCHC 33.6, RDW 13.1, RDW Differential 41.5, Plt Count 195, MPV 9.7 08/23/18 12:27: POC Glucose 88 Current Medications Acetaminophen (Tylenol) 1,000 mg PO DAILY PRN PRN PRN Reason: PAIN Amlodipine Besylate (Norvasc) 5 mg PO DAILY [facility] Last Admin: 08/23/18 09:08 Dose: 5 mg Aspirin (Aspirin, Baby) 81 mg PO DAILY@0800 [facility] Last Admin: 08/23/18 09:07 Dose: 81 mg Atenolol (Tenormin (Beta Silvana)) 100 mg PO DAILY [facility] Last Admin: 08/23/18 09:08 Dose: 100 mg Atorvastatin Calcium (Lipitor) 20 mg PO QHS [facility] Last Admin: 08/22/18 21:25 Dose: 20 mg Bupropion HCl (Wellbutrin Xl) 300 mg PO DAILY [facility] Last Admin: 08/23/18 09:08 Dose: 300 mg Calcitriol (Rocaltrol) 0.5 mcg PO DAILY [facility] Last Admin: 08/23/18 09:08 Dose: 0.5 mcg Dextrose (D50w Syringe) 0 gm IV X1 PRN; Protocol PRN Reason: Hypoglycemia Furosemide (Lasix) 40 mg IV BID@1000,1800 [facility] Last Admin: 08/23/18 09:08 Dose: 40 mg Gabapentin (Neurontin) 300 mg PO TIDCM [facility] Last Admin: 08/23/18 12:28 Dose: 300 mg Glucagon () 1 mg IM .X1 PRN PRN Reason: Hypoglycemia Heparin Sodium (Porcine) (Heparin Na) 5,000 unit SC Q12 [facility] Last Admin: 08/23/18 09:08 Dose: 5,000 unit Hydralazine HCl (Apresoline) 25 mg PO TID [facility] Last Admin: 08/23/18 14:34 Dose: 25 mg Insulin Glargine (Lantus (Bkc)) 6 units SC QHS [facility] Last Admin: 08/22/18 21:25 Dose: 6 u Insulin Human Lispro (Humalog Kwikpen (Bkc)) 0 unit SQ ACHS [facility]; Protocol Last Admin: 08/23/18 12:28 Dose: Not Given Magnesium Hydroxide (Milk Of Magnesia) 30 ml PO DAILY PRN PRN Reason: Constipation Sodium Chloride () 5 - 15 ml IV UD PRN PRN Reason: SALINE FLUSH Last Admin: 08/23/18 09:08 Dose: 10 ml Tamsulosin HCl (Flomax) 0.4 mg PO DAILY [facility] Last Admin: 08/23/18 09:08 Dose: 0.4 mg Medical Necessity - Tobacco Use Smoking Status: Never smoker Tobacco Use: Chew Assessment/Plan All Active Problems (Last Reviewed 07/18/18 @ 14:09 by Luzmaria Mccullough) Anasarca associated with disorder of kidney (Acute) Retention, urine (Acute) Acute on chronic diastolic CHF (congestive heart failure) (Acute) Acute hypoxemic respiratory failure (Ruled-out) Hypoglycemia (Acute) Acute respiratory failure with hypoxia (Ruled-out) ILDA (acute kidney injury) (Ruled-out) Right leg pain (Resolved) Chronic ulcer of 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 (Resolved) Cellulitis and abscess of right leg (Resolved) Hypertensive emergency (Resolved) Hypokalemia (Resolved) 47-year-old male with past medical history of CKD stage IV, hypertension, hyperlipidemia comes in with shortness of breath and weight gain. 1. Acute on chronic diastolic heart failure, on IV Lasix, continue strict I's and O's, monitor urine output 2. Diarrhea, non-infective, enteric panel is negative, will monitor 3. Hypertensive urgency, uncontrolled, continue on amlodipine, atenolol, 4. CKD stage IV, stable, nephrology consulted, will trend labs 5. Anemia of CKD, stable 6. Type II DM complicated with retinopathy, neuropathy and nephropathy, sugars are fairly controlled, episodes of hypoglycemia, Discontinue premeal insulin, continue on Lantus and ISS as well as gabapentin, 7. Anxiety/depression, on bupropion 8. DVT PPx- Heparin SC Code Visit Inpatient E&M: [id number] Subs Hosp L2
--- NOTE | 2018-08-23 16:30 | PCM.PN.REN ---
Subjective: diarrhea improving. Urine output about the same as at home. Edema essentially unchanged. Breathing stable. - Physical Exam General: Alert, Oriented x3, Cooperative, No apparent distress Lungs: Clear to auscultation Cardiovascular: Regular rate, No rub noted Abdomen: Bowel Sounds Present, Soft, Non Tender, Non-Distended, Obese Extremities: Edema - 1+ pitting, - - AVF rt forearm with thrill and bruit Psych/Mental Status: Normal Affect, Appropriate, Alert and oriented to time, place, person, mood and affect Vital Signs Temp Pulse Resp BP Pulse Ox 97.3 F L 72 17 147/82 H 93 08/23/18 09:01 08/23/18 15:03 08/23/18 09:01 08/23/18 09:01 08/23/18 09:01 Oxygen Delivery Method Room Air Weight: 107.1 kg Body Mass Index (BMI) 36.6 Finger Stick Blood Glucose 149 Intake and Output for Last 24 Hours 08/21/18 08/22/18 08/23/18 23:59 23:59 23:59 Intake Total 120 / 120 1110 / 1110 490 / 490 Output Total 600 / 600 1050 / 1050 1200 / 1200 Balance -480 / -480 60 / 60 -710 / -710 Microbiology Past 72 Hours 08/23/18 09:45 C. difficile DNA Amplification - Final Stool Laboratory Tests Past 24 Hrs 08/23/18 08/23/18 08/23/18 07:16 07:16 07:16 WBC 5.5 RBC 3.29 L Hgb 9.9 L Hct 29.5 L MCV 89.7 MCH 30.1 MCHC 33.6 RDW 13.1 RDW Differential 41.5 Plt Count 195 MPV 9.7 Sodium 143 Potassium 4.5 Chloride 116 H Carbon Dioxide 18.0 L BUN 63 H Creatinine 5.75 H Estim Creat Clear Calc 15.03 Est GFR (MDRD) Af Amer 14 L Est GFR (MDRD) Non-Af 11 L BUN/Creatinine Ratio 11.0 Glucose 101 Calcium 7.7 L Phosphorus 5.8 H Albumin 1.9 L PTH Intact 107.8 H POC Glucose 08/23/18 08/23/18 08/22/18 12:27 06:44 21:22 POC Glucose 88 115 H 127 H 08/22/18 16:23 POC Glucose 147 H Medical Necessity - Tobacco Use Smoking Status: Never smoker Tobacco Use: Chew Assessment/Plan All Active Problems (Last Reviewed 07/18/18 @ 14:09 by Luzmaria Mccullough) Anasarca associated with disorder of kidney (Acute) Retention, urine (Acute) Acute on chronic diastolic CHF (congestive heart failure) (Acute) Acute hypoxemic respiratory failure (Ruled-out) Hypoglycemia (Acute) Acute respiratory failure with hypoxia (Ruled-out) ILDA (acute kidney injury) (Ruled-out) Right leg pain (Resolved) Chronic ulcer of 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 (Resolved) Cellulitis and abscess of right leg (Resolved) Hypertensive emergency (Resolved) Hypokalemia (Resolved) 1. CKD stage 5 s/p stage 1 AVF placement on 08/08. Currently without uremic symptoms. No urgency to initiate dialysis. Check 24h urine CRCL 2. Fluid overload. Low sodium diet. Continue with iv lasix. Increase to 80mg twice a day. 3. Anemia stable 4. DM2 primary mgmt 5. HTN stable 6. Diarrhea, stool for cdiff negative 7/ SPHT PTH stable continue calcitriol 8. Morbid obesity
[2018-08-23 16:41] LABS: Bedside Glucose 109 mg/dL (70-110)
[2018-08-23] MEDS: Furosemide 100 MG/10 ML Vial 80 MG IV (17:56)
[2018-08-23 18:25] LABS: Creat.Clear Total Volume 1850 mL; Creatinine Clearance 16 ml/min (100-200); Creatinine Serum Creat 5.8 mg/dL (0.8-1.3); Creatinine Urine 71.4 mg/dL (NO RANGE EST.); EST Glomerular Filtration Rate 11 mL/min (>60); Est Glom Filt Rate - Afr Amer 14 mL/min (>60)
[2018-08-23 18:27] LABS: 24HR. UA Prot. Total Volume 1850 mL
[2018-08-23 19:52] LABS: Urine Protein (24 Hour) 481.6 mg/dL (<11.9)
[2018-08-23] MEDS: Atorvastatin Calcium 20 MG Tablet PO (21:06)
[2018-08-23 21:31] LABS: Bedside Glucose 140 mg/dL (70-110)
[2018-08-24] VITALS (14 sets, daily range): BP systolic 130–160; BP diastolic 71–88; PULSE 70–75; RESP 14–16; TEMP 36.2–36.8; O2SAT 93–97
[2018-08-24] MEDS: hydrALAZINE 25 MG Tablet PO ×3 (06:37→22:15)
[2018-08-24 06:50] LABS: Hematocrit 28.2 % (40-54); Hemoglobin 9.5 g/dl (13.0-16.5); Mean Corp Hgb Conc 33.7 g/gl (32-36); Mean Corpuscular Hgb 30.1 pg (27.0-32.0); Mean Corpuscular Volume 89.2 fL (80-94); Mean Platelet Vol. 9.6 fl (6.2-12.0); Platelet Count 205 K/mm3 (150-450); RBC Distribution Width SD 40.6 fl (35.1-43.9); Red Blood Count 3.16 M/mm3 (4.6-6.2); White Blood Count 5.5 K/mm3 (4.4-11.0)
[2018-08-24 06:51] LABS: Scan Indicated on CBC? Y/N NO
[2018-08-24 07:01] LABS: BUN 67 mg/dL (7-18); BUN/Creat Ratio 11.1 RATIO (10-20); Calcium,Total 8.1 mg/dL (8.5-10.1); Chloride 115 mmol/L (98-107); Creatinine, Serum 6.01 mg/dL (0.70-1.30); EST Glomerular Filtration Rate 11 mL/min (>60); Est Glom Filt Rate - Afr Amer 13 mL/min (>60); Estimated Creatinine Clearance 14.38 ml/min; Glucose 95 mg/dL (74-106); Phosphorus 5.8 mg/dL (2.5-4.9); Potassium 4.9 mmol/L (3.5-5.1); Sodium Level 145 mmol/L (136-145)
[2018-08-24 07:05] LABS: Bedside Glucose 93 mg/dL (70-110)
[2018-08-24] MEDS: Tamsulosin HCl 0.4 MG Capsule PO (09:02)
[2018-08-24] MEDS: Gabapentin 300 MG Capsule PO ×3 (09:02→16:53)
[2018-08-24] MEDS: Heparin Injection (Vial) 5,000 UNIT/ML VIAL 5000 UNIT SC ×2 (09:02→22:15)
[2018-08-24] MEDS: Aspirin 81 MG TAB.CHEW PO (09:02)
[2018-08-24] MEDS: Furosemide 100 MG/10 ML Vial 80 MG IV (09:03)
[2018-08-24] MEDS: Calcitriol 0.25 MCG Capsule 0.5 MCG PO (09:03)
[2018-08-24] MEDS: Atenolol 100 MG Tablet PO (09:03)
[2018-08-24] MEDS: amLODIPine 5 MG Tablet PO ×2 (09:03→16:53)
[2018-08-24] MEDS: 0.9% NaCl Peripheral Flush Adult/Peds IV ×2 (09:04→16:54)
[2018-08-24] MEDS: buPROPion (XL) 300 MG TABLET.XL PO (09:04)
[2018-08-24 11:26] LABS: Bedside Glucose 142 mg/dL (70-110)
--- NOTE | 2018-08-24 15:57 | PCM.PN.HOSP ---
Subjective: Patient was seen and examined. Feels well. Been ambulating. Complains of occasional cough, bothersome. Objective: General: Alert, Oriented x3, Cooperative, No apparent distress HEENT: Atraumatic, PERRLA, EOMI, Normocephalic Oral: Moist Mucosa Neck: Supple, No JVD, Negative Carotid Bruits Lungs: Clear to auscultation, Normal air movement Cardiovascular: Regular rate, Regular Rhythm, Normal S1, Normal S2, No murmurs Abdomen: Bowel Sounds Present, Soft, Non Tender, Non-Distended, No Hepato-splenomegaly Extremities: No edema Skin: No rashes, No breakdown Musculoskeletal: No Tenderness to Palpation of Joints or Extremities Lymphatic: No Cervical, Supraclavicular, or Inguinal Adenopathy Neurological: Cranial nerves II-XII grossly intact, Neuro grossly intact Psych/Mental Status: Normal Affect, Appropriate Vitals/I&O's: Vital Signs Temp Pulse Resp BP Pulse Ox 97.9 F 75 16 160/88 H 94 08/24/18 09:00 08/24/18 14:20 08/24/18 09:00 08/24/18 09:00 08/24/18 09:00 Oxygen Delivery Method Room Air Weight: 109 kg Body Mass Index (BMI) 36.6 Finger Stick Blood Glucose 149 Intake and Output for Last 24 Hours 08/22/18 08/23/18 08/24/18 23:59 23:59 23:59 Intake Total 1110 / 1110 1090 / 1090 240 / 240 Output Total 1050 / 1050 1950 / 1950 675 / 675 Balance 60 / 60 -860 / -860 -435 / -435 Microbiology Past 72 Hours 08/23/18 09:45 Stool Enteric Bacteriology - Final 08/23/18 09:45 Stool C. difficile DNA Amplification - Final Laboratory Results 08/23/18 16:15: Creatinine 5.8 H, Est GFR (MDRD) Af Amer 14 L, Est GFR (MDRD) Non-Af 11 L, Urine Collection Time 24.0, Timed Urine Volume 1850, Urine Creatinine 71.4, Creatinine Clearance 16 L 08/23/18 16:15: Urine Collection Time 24.0, Timed Urine Volume 1850, Ur Total Protein 24 Hr 8909.6 H, Urine Total Protein 481.6 H 08/23/18 16:30: POC Glucose 109 12/15/18 21:03: POC Glucose 140 H 08/24/18 06:35: WBC 5.5, RBC 3.16 L, Hgb 9.5 L, Hct 28.2 L, MCV 89.2, MCH 30.1, MCHC 33.7, RDW 13.0, RDW Differential 40.6, Plt Count 205, MPV 9.6 08/24/18 06:35: Sodium 145, Potassium 4.9, Chloride 115 H, Carbon Dioxide 22.0, BUN 67 H, Creatinine 6.01 H, Estim Creat Clear Calc 14.38, Est GFR (MDRD) Af Amer 13 L, Est GFR (MDRD) Non-Af 11 L, BUN/Creatinine Ratio 11.1, Glucose 95, Calcium 8.1 L, Phosphorus 5.8 H, Albumin 2.0 L 08/24/18 06:39: POC Glucose 93 08/24/18 11:21: POC Glucose 142 H Current Medications Acetaminophen (Tylenol) 1,000 mg PO DAILY PRN PRN PRN Reason: PAIN Amlodipine Besylate (Norvasc) 5 mg PO DAILY [facility] Last Admin: 08/24/18 09:03 Dose: 5 mg Aspirin (Aspirin, Baby) 81 mg PO DAILY@0800 [facility] Last Admin: 08/24/18 09:02 Dose: 81 mg Atenolol (Tenormin (Beta Silvana)) 100 mg PO DAILY [facility] Last Admin: 08/24/18 09:03 Dose: 100 mg Atorvastatin Calcium (Lipitor) 20 mg PO QHS [facility] Last Admin: 08/23/18 21:06 Dose: 20 mg Bupropion HCl (Wellbutrin Xl) 300 mg PO DAILY [facility] Last Admin: 08/24/18 09:04 Dose: 300 mg Calcitriol (Rocaltrol) 0.5 mcg PO DAILY [facility] Last Admin: 08/24/18 09:03 Dose: 0.5 mcg Calcium Acetate (Phoslo Gel Cap) 667 mg PO TIDCM [facility] Dextrose (D50w Syringe) 0 gm IV X1 PRN; Protocol PRN Reason: Hypoglycemia Furosemide (Lasix) 20 mg IV BID@1000,1800 [facility] Gabapentin (Neurontin) 300 mg PO TIDCM [facility] Last Admin: 08/24/18 11:52 Dose: 300 mg Glucagon () 1 mg IM .X1 PRN PRN Reason: Hypoglycemia Guaifenesin (Mucinex) 1,200 mg PO BID PRN PRN Reason: COUGH Heparin Sodium (Porcine) (Heparin Na) 5,000 unit SC Q12 [facility] Last Admin: 08/24/18 09:02 Dose: 5,000 unit Hydralazine HCl (Apresoline) 25 mg PO TID [facility] Last Admin: 08/24/18 14:20 Dose: 25 mg Insulin Glargine (Lantus (Bkc)) 6 units SC QHS [facility] Last Admin: 08/23/18 21:07 Dose: 6 u Insulin Human Lispro (Humalog Kwikpen (Bkc)) 0 unit SQ ACHS [facility]; Protocol Last Admin: 08/24/18 11:25 Dose: Not Given Magnesium Hydroxide (Milk Of Magnesia) 30 ml PO DAILY PRN PRN Reason: Constipation Sodium Chloride () 5 - 15 ml IV UD PRN PRN Reason: SALINE FLUSH Last Admin: 08/24/18 09:04 Dose: 10 ml Tamsulosin HCl (Flomax) 0.4 mg PO DAILY [facility] Last Admin: 08/24/18 09:02 Dose: 0.4 mg Medical Necessity - Tobacco Use Smoking Status: Never smoker Tobacco Use: Chew Assessment/Plan All Active Problems (Last Reviewed 07/18/18 @ 14:09 by Luzmaria Mccullough) Anasarca associated with disorder of kidney (Acute) Retention, urine (Acute) Acute on chronic diastolic CHF (congestive heart failure) (Acute) Acute hypoxemic respiratory failure (Ruled-out) Hypoglycemia (Acute) Acute respiratory failure with hypoxia (Ruled-out) ILDA (acute kidney injury) (Ruled-out) Right leg pain (Resolved) Chronic ulcer of 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 (Resolved) Cellulitis and abscess of right leg (Resolved) Hypertensive emergency (Resolved) Hypokalemia (Resolved) 47-year-old male with past medical history of CKD stage IV, hypertension, hyperlipidemia comes in with shortness of breath and weight gain. 1. Acute on chronic diastolic heart failure, on IV Lasix, diuresing well, continue strict I's and O's, monitor urine output 2. Diarrhea, non-infective, c. diff and enteric panel is negative, resolved 3. Hypertensive urgency, uncontrolled, increase amlodipine to 10mg daily amlodipine, atenolol, hydralazine 4. CKD stage IV, stable, CR climbing up, decrease Lasix to 20mg IV BID, nephrology consulted, will trend labs 5. Anemia of CKD, stable 6. Type II DM complicated with retinopathy, neuropathy and nephropathy, sugars are fairly controlled, episodes of hypoglycemia, Discontinue premeal insulin, continue on Lantus and ISS as well as gabapentin, 7. Anxiety/depression, on bupropion 8. DVT PPx- Heparin SC Code Visit Inpatient E&M: 75961 Subs Hosp L2
--- NOTE | 2018-08-24 16:01 | PN_ITS ---
Subjective: Patient was seen and examined. Feels well. Been ambulating. Complains of occasional cough, bothersome. Objective: General: Alert, Oriented x3, Cooperative, No apparent distress HEENT: Atraumatic, PERRLA, EOMI, Normocephalic Oral: Moist Mucosa Neck: Supple, No JVD, Negative Carotid Bruits Lungs: Clear to auscultation, Normal air movement Cardiovascular: Regular rate, Regular Rhythm, Normal S1, Normal S2, No murmurs Abdomen: Bowel Sounds Present, Soft, Non Tender, Non-Distended, No Hepato- splenomegaly Extremities: No edema Skin: No rashes, No breakdown Musculoskeletal: No Tenderness to Palpation of Joints or Extremities Lymphatic: No Cervical, Supraclavicular, or Inguinal Adenopathy Neurological: Cranial nerves II-XII grossly intact, Neuro grossly intact Psych/Mental Status: Normal Affect, Appropriate Vitals/I&O's: Vital Signs Temp Pulse Resp BP Pulse Ox 97.9 F 75 16 160/88 H 94 08/24/18 09:00 08/24/18 14:20 08/24/18 09:00 08/24/18 09:00 08/24/18 09:00 Oxygen Delivery Method Room Air Weight: 109 kg Body Mass Index (BMI) 36.6 Finger Stick Blood Glucose 149 Intake and Output for Last 24 Hours 08/22/18 08/23/18 08/24/18 23:59 23:59 23:59 Intake Total 1110 / 1110 1090 / 1090 240 / 240 Output Total 1050 / 1050 1950 / 1950 675 / 675 Balance 60 / 60 -860 / -860 -435 / -435 Microbiology Past 72 Hours 08/23/18 09:45 Stool Enteric Bacteriology - Final 08/23/18 09:45 Stool C. difficile DNA Amplification - Final Laboratory Results 08/23/18 16:15: Creatinine 5.8 H, Est GFR (MDRD) Af Amer 14 L, Est GFR (MDRD) Non-Af 11 L, Urine Collection Time 24.0, Timed Urine Volume 1850, Urine Creatinine 71.4, Creatinine Clearance 16 L 08/23/18 16:15: Urine Collection Time 24.0, Timed Urine Volume 1850, Ur Total Protein 24 Hr 8909.6 H, Urine Total Protein 481.6 H 08/23/18 16:30: POC Glucose 109 12/15/18 21:03: POC Glucose 140 H 08/24/18 06:35: WBC 5.5, RBC 3.16 L, Hgb 9.5 L, Hct 28.2 L, MCV 89.2, MCH 30.1, MCHC 33.7, RDW 13.0, RDW Differential 40.6, Plt Count 205, MPV 9.6 08/24/18 06:35: Sodium 145, Potassium 4.9, Chloride 115 H, Carbon Dioxide 22.0, BUN 67 H, Creatinine 6.01 H, Estim Creat Clear Calc 14.38, Est GFR (MDRD) Af Amer 13 L, Est GFR (MDRD) Non-Af 11 L, BUN/Creatinine Ratio 11.1, Glucose 95, Calcium 8.1 L, Phosphorus 5.8 H, Albumin 2.0 L 08/24/18 06:39: POC Glucose 93 08/24/18 11:21: POC Glucose 142 H Current Medications Acetaminophen (Tylenol) 1,000 mg PO DAILY PRN PRN PRN Reason: PAIN Amlodipine Besylate (Norvasc) 5 mg PO DAILY [facility] Last Admin: 08/24/18 09:03 Dose: 5 mg Aspirin (Aspirin, Baby) 81 mg PO DAILY@0800 [facility] Last Admin: 08/24/18 09:02 Dose: 81 mg Atenolol (Tenormin (Beta Silvana)) 100 mg PO DAILY [facility] Last Admin: 08/24/18 09:03 Dose: 100 mg Atorvastatin Calcium (Lipitor) 20 mg PO QHS [facility] Last Admin: 08/23/18 21:06 Dose: 20 mg Bupropion HCl (Wellbutrin Xl) 300 mg PO DAILY [facility] Last Admin: 08/24/18 09:04 Dose: 300 mg Calcitriol (Rocaltrol) 0.5 mcg PO DAILY [facility] Last Admin: 08/24/18 09:03 Dose: 0.5 mcg Calcium Acetate (Phoslo Gel Cap) 667 mg PO TIDCM [facility] Dextrose (D50w Syringe) 0 gm IV X1 PRN; Protocol PRN Reason: Hypoglycemia Furosemide (Lasix) 20 mg IV BID@1000,1800 [facility] Gabapentin (Neurontin) 300 mg PO TIDCM [facility] Last Admin: 08/24/18 11:52 Dose: 300 mg Glucagon () 1 mg IM .X1 PRN PRN Reason: Hypoglycemia Guaifenesin (Mucinex) 1,200 mg PO BID PRN PRN Reason: COUGH Heparin Sodium (Porcine) (Heparin Na) 5,000 unit SC Q12 [facility] Last Admin: 08/24/18 09:02 Dose: 5,000 unit Hydralazine HCl (Apresoline) 25 mg PO TID [facility] Last Admin: 08/24/18 14:20 Dose: 25 mg Insulin Glargine (Lantus (Bkc)) 6 units SC QHS [facility] Last Admin: 08/23/18 21:07 Dose: 6 u Insulin Human Lispro (Humalog Kwikpen (Bkc)) 0 unit SQ ACHS [facility]; Protocol Last Admin: 08/24/18 11:25 Dose: Not Given Magnesium Hydroxide (Milk Of Magnesia) 30 ml PO DAILY PRN PRN Reason: Constipation Sodium Chloride () 5 - 15 ml IV UD PRN PRN Reason: SALINE FLUSH Last Admin: 08/24/18 09:04 Dose: 10 ml Tamsulosin HCl (Flomax) 0.4 mg PO DAILY [facility] Last Admin: 08/24/18 09:02 Dose: 0.4 mg Medical Necessity - Tobacco Use Smoking Status: Never smoker Tobacco Use: Chew Assessment/Plan All Active Problems (Last Reviewed 07/18/18 @ 14:09 by Luzmaria Mccullough) Anasarca associated with disorder of kidney (Acute) Retention, urine (Acute) Acute on chronic diastolic CHF (congestive heart failure) (Acute) Acute hypoxemic respiratory failure (Ruled-out) Hypoglycemia (Acute) Acute respiratory failure with hypoxia (Ruled-out) ILDA (acute kidney injury) (Ruled-out) Right leg pain (Resolved) Chronic ulcer of 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 (Resolved) Cellulitis and abscess of right leg (Resolved) Hypertensive emergency (Resolved) Hypokalemia (Resolved) 47-year-old male with past medical history of CKD stage IV, hypertension, hyperlipidemia comes in with shortness of breath and weight gain. 1. Acute on chronic diastolic heart failure, on IV Lasix, diuresing well, continue strict I's and O's, monitor urine output 2. Diarrhea, non-infective, c. diff and enteric panel is negative, resolved 3. Hypertensive urgency, uncontrolled, increase amlodipine to 10mg daily amlodipine, atenolol, hydralazine 4. CKD stage IV, stable, CR climbing up, decrease Lasix to 20mg IV BID, neph rology consulted, will trend labs 5. Anemia of CKD, stable 6. Type II DM complicated with retinopathy, neuropathy and nephropathy, sugars are fairly controlled, episodes of hypoglycemia, Discontinue premeal insulin, continue on Lantus and ISS as well as gabapentin, 7. Anxiety/depression, on bupropion 8. DVT PPx- Heparin SC Code Visit Inpatient E&M: [id number] Subs Hosp L2
[2018-08-24] MEDS: guaiFENesin 1,200 MG Tablet 1200 MG PO (16:53)
[2018-08-24] MEDS: Calcium Acetate 667 MG Capsule PO (16:53)
[2018-08-24] MEDS: Insulin Lispro 100 UNIT/ML INSULN.PEN SQ ×2 (16:55→22:15)
[2018-08-24] MEDS: Furosemide 100 MG/10 ML Vial 20 MG IV (16:58)
[2018-08-24 17:00] LABS: Bedside Glucose 187 mg/dL (70-110)
[2018-08-24] MEDS: Atorvastatin Calcium 20 MG Tablet PO (22:15)
[2018-08-24 22:26] LABS: Bedside Glucose 152 mg/dL (70-110)
[2018-08-25] VITALS (9 sets, daily range): BP systolic 139–151; BP diastolic 60–76; PULSE 67–78; RESP 14–16; TEMP 36.6–36.8; O2SAT 93–94
[2018-08-25 06:37] LABS: BUN 72 mg/dL (7-18); BUN/Creat Ratio 11.6 RATIO (10-20); Chloride 115 mmol/L (98-107); EST Glomerular Filtration Rate 10 mL/min (>60); Est Glom Filt Rate - Afr Amer 12 mL/min (>60); Estimated Creatinine Clearance 13.94 ml/min; Glucose 111 mg/dL (74-106); Phosphorus 6.5 mg/dL (2.5-4.9); Potassium 5.6 mmol/L (3.5-5.1); Sodium Level 146 mmol/L (136-145)
[2018-08-25] MEDS: hydrALAZINE 25 MG Tablet PO ×2 (06:52→13:06)
[2018-08-25 07:01] LABS: Bedside Glucose 108 mg/dL (70-110)
[2018-08-25] MEDS: Gabapentin 300 MG Capsule PO ×3 (09:28→17:13)
[2018-08-25] MEDS: Calcium Acetate 667 MG Capsule PO ×3 (09:28→17:13)
[2018-08-25] MEDS: Heparin Injection (Vial) 5,000 UNIT/ML VIAL 5000 UNIT SC (09:29)
[2018-08-25] MEDS: Atenolol 100 MG Tablet PO (09:29)
[2018-08-25] MEDS: amLODIPine 5 MG Tablet 10 MG PO (09:29)
[2018-08-25] MEDS: buPROPion (XL) 300 MG TABLET.XL PO (09:30)
[2018-08-25] MEDS: Calcitriol 0.25 MCG Capsule 0.5 MCG PO (09:30)
[2018-08-25] MEDS: Tamsulosin HCl 0.4 MG Capsule PO (09:31)
[2018-08-25] MEDS: Furosemide 100 MG/10 ML Vial 20 MG IV (09:35)
[2018-08-25] MEDS: Aspirin 81 MG TAB.CHEW PO (09:35)
--- NOTE | 2018-08-25 10:28 | PCM.PN.REN ---
Subjective: pt with nausea, edema improving. SOB improved. Creatinine rising. Potassium elevated, noncompliant with diet, eating bananas. - Physical Exam General: Alert, Oriented x3, Cooperative Lungs: Clear to auscultation Cardiovascular: Regular rate, No rub noted Abdomen: Bowel Sounds Present, Soft, Non Tender, Non-Distended, Obese Extremities: Edema - improving Neurological: Cranial nerves II-XII grossly intact, - - no asterixis Psych/Mental Status: Normal Affect, Appropriate, Alert and oriented to time, place, person, mood and affect Vital Signs Temp Pulse Resp BP Pulse Ox 97.8 F 67 16 140/60 H 94 08/25/18 09:15 08/25/18 09:15 08/25/18 09:15 08/25/18 09:15 08/25/18 09:15 Oxygen Delivery Method Room Air Weight: 110.1 kg Body Mass Index (BMI) 36.6 Finger Stick Blood Glucose 149 Intake and Output for Last 24 Hours 08/23/18 08/24/18 08/25/18 23:59 23:59 23:59 Intake Total 1090 / 1090 740 / 740 Output Total 1950 / 1950 2175 / 2175 0 / 0 Balance -860 / -860 -1435 / -1435 0 / 0 Microbiology Past 72 Hours 08/23/18 09:45 Enteric Bacteriology - Final Stool 08/23/18 09:45 C. difficile DNA Amplification - Final Stool Laboratory Tests Past 24 Hrs 08/25/18 06:10 Sodium 146 H Potassium 5.6 H Chloride 115 H Carbon Dioxide 21.0 BUN 72 H Creatinine 6.20 H Estim Creat Clear Calc 13.94 Est GFR (MDRD) Af Amer 12 L Est GFR (MDRD) Non-Af 10 L BUN/Creatinine Ratio 11.6 Glucose 111 H Calcium 8.0 L Phosphorus 6.5 H Albumin 2.0 L POC Glucose 08/25/18 08/24/18 08/24/18 06:51 22:13 16:52 POC Glucose 108 152 H 187 H 08/24/18 11:21 POC Glucose 142 H Medical Necessity - Tobacco Use Smoking Status: Never smoker Tobacco Use: Chew Assessment/Plan All Active Problems (Last Reviewed 07/18/18 @ 14:09 by Luzmaria Mccullough) Anasarca associated with disorder of kidney (Acute) Retention, urine (Acute) Acute on chronic diastolic CHF (congestive heart failure) (Acute) Acute hypoxemic respiratory failure (Ruled-out) Hypoglycemia (Acute) Acute respiratory failure with hypoxia (Ruled-out) ILDA (acute kidney injury) (Ruled-out) Right leg pain (Resolved) Chronic ulcer of 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 (Resolved) Cellulitis and abscess of right leg (Resolved) Hypertensive emergency (Resolved) Hypokalemia (Resolved) 1. CKD stage 5 s/p stage 1 AVF placement on 08/08 not ready for use. Currently with mild nausea, no vomiting. Edema stable. Breathing stable. 24h urine CRCL 16cc/min, nephrotic proteinuria due to diabetic nephropathy. 2. Fluid overload, anasarca with nephrotic proteinuria. Low sodium diet. DC to home on lasix 80mg twice a day. 3. Anemia stable 4. DM2 primary mgmt, hx noncompliance 5. HTN stable 6. Diarrhea, stool for cdiff negative 7/ SPHT PTH stable continue calcitriol and phosphate binder calcium acetate on discharge to home. 8. Morbid obesity Pt has f/u appt with me on Sep 03 at 10am. Will have him f/u with me and vascular for tunneled catheter placement as outpt.
--- NOTE | 2018-08-25 10:57 | PCM.CONS.GEN ---
Problem List (1) Chronic renal failure, stage 5 Status: Chronic (2) Acute on chronic diastolic CHF (congestive heart failure) Status: Acute Reason for Consult Date of Consultation: 08/25/18 Reason for Consultation: Chronic renal failure worsening creatinine. In need of tunneled dialysis catheter. History of Present Illness: The patient is a 47 year old M who presented to the Ed with 1 1/2 weeks of shortness of breath. Patient noted bilateral lower extremity edema, increased shortness of breath and back pain. He noted these symptoms progressed which is what brought him to the ED. He notes a history of CHF. He follows with Dr. Cabral and Aj Faith, [facility]. He denies previous stroke, myocardial infarction, blood clots. Patient recently had a stage I right forearm radiocephalic AV fistula creation by Dr. Phan on 08/08. Patient is not currently on dialysis. Dr. Montiel is his manager field services. Patient is a diabetic. He was diagnosed at the age of 21. He is blind in the left eye. Creatinine has increased from 5.6 on admission to 6.2 today. Medical problems included diastolic congestive heart failure and left ventricular hypertrophy, diabetes mellitus type 2, diabetic neuropathy, diabetic nephropathy, diabetic retinopathy, obesity, noncompliance with diet medications as well as hypertension, hyperlipidemia ,anxiety ,depression, GERD, tobacco dependence, stage V renal failure, sleep apnea. Past Medical History Past Medical History (Chronic Problems): Chronic Problems (Last Reviewed 07/18/18 @ 14:09 by Luzmaria Mccullough) Chronic renal failure, stage 5 (Chronic) Ectopic cardiac beats (Chronic) Anemia of chronic renal failure, stage 4 (severe) (Chronic) Chronic renal failure, stage 4 (severe) (Chronic) Is currently following with nephrology. Also following with urology. Is trying to follow his low protein diet and feels he is doing well with it. Obesity (BMI 30-39.9) (Chronic) Noncompliance (Chronic) Diabetic neuropathy (Chronic) Diabetic nephropathy (Chronic) Diabetic retinopathy (Chronic) HTN (hypertension) (Chronic) HLD (hyperlipidemia) (Chronic) Blind left eye (Chronic) Diabetes mellitus type II, uncontrolled (Chronic) Dx : 1993 Discussed with patient need to check BG in pairs, learn carb counting and then we can determine I/C ratio for him at last visit. is doing well with his diet. He stopped his basalglar. He is willing to start again at lower dose and titrate back up. He will start at 10 units and increase by 2-3 units every 3 days if he is waking with higher BG than he went to bed with. I have also decrease his correction to 1-50 so that he is not going low after correction. I have given he an alternative correction scale to use if he needs less correction when he begins with higer dose of basaglar and finds his current correction may be too strong. On statin On asa Anxiety and depression (Chronic) GERD (gastroesophageal reflux disease) (Chronic) Chewing tobacco nicotine dependence (Chronic) History of acute myocardial infarction (Chronic) Medical History: Medical History (Last Reviewed 08/25/18 @ 11:25 by Minerva Sexton PA-C) Anasarca associated with disorder of kidney (Acute) N04.9 Anemia of chronic renal failure, stage 4 (severe) (Chronic) N18.4, D63.1 Autonomic neuropathy (Suspected) G90.9 Chronic renal failure, stage 4 (severe) (Chronic) N18.4 Is currently following with nephrology. Also following with urology. Is trying to follow his low protein diet and feels he is doing well with it. Retention, urine (Acute) R33.9 Acute on chronic diastolic CHF (congestive heart failure) (Acute) I50.33 Acute hypoxemic respiratory failure (Ruled-out) J96.01 Hypoglycemia (Acute) E16.2 resolved in ED Acute respiratory failure with hypoxia (Ruled-out) J96.01 Obesity (BMI 30-39.9) (Chronic) E66.9 Noncompliance (Chronic) Z91.19 Diabetic neuropathy (Chronic) E11.40 Diabetic nephropathy (Chronic) E11.21 Diabetic retinopathy (Chronic) E11.319 HTN (hypertension) (Chronic) I10 HLD (hyperlipidemia) (Chronic) E78.5 Blind left eye (Chronic) H54.40 Diabetes mellitus type II, uncontrolled (Chronic) E11.65 Dx : 1993 Discussed with patient need to check BG in pairs, learn carb counting and then we can determine I/C ratio for him at last visit. is doing well with his diet. He stopped his basalglar. He is willing to start again at lower dose and titrate back up. He will start at 10 units and increase by 2-3 units every 3 days if he is waking with higher BG than he went to bed with. I have also decrease his correction to 1-50 so that he is not going low after correction. I have given he an alternative correction scale to use if he needs less correction when he begins with higer dose of basaglar and finds his current correction may be too strong. On statin On asa Anxiety and depression (Chronic) F41.9, F32.9 GERD (gastroesophageal reflux disease) (Chronic) K21.9 Chewing tobacco nicotine dependence (Chronic) F17.220 ILDA (acute kidney injury) (Ruled-out) N17.9 Right leg pain (Resolved) M79.604 Chronic ulcer of 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 (Resolved) L97.912 Cellulitis and abscess of right leg (Resolved) L03.115, L02.415 History of acute myocardial infarction (Chronic) I25.2 Kidney failure N19 Kidney stones N20.0 Pneumonia J18.9 Vision problems H54.7 Hypertensive emergency (Resolved) I16.1 Hypokalemia (Resolved) E87.6 Allergies No Known Allergies Allergy (Verified 08/04/18 09:24) Home Medications: Ambulatory Orders Medication Instructions Recorded Gabapentin [Neurontin] 300 mg PO TIDCM 07/15/13 Bupropion HCl [Wellbutrin Xl] 300 mg PO DAILY 05/06/17 Atorvastatin Calcium [Lipitor] 20 mg PO QHS 11/19/17 Atenolol [Tenormin (beta elizabeth)] 100 mg PO DAILY 11/28/17 acetaminophen 500 mg tablet 1,000 mg PO DAILY PRN PRN tab 01/20/18 tamsulosin 0.4 mg capsule 0.4 mg PO DAILY cap 01/20/18 Amlodipine [Norvasc] 5 mg PO DAILY 03/02/18 Insulin Aspart [Novolog Flexpen] 10 - 14 unit SQ TIDCM 03/02/18 hydralazine 25 mg tablet 25 mg PO TID 07/11/18 insulin glargine (U-100) 100 4 - 6 unit SQ QHS ml 07/11/18 unit/mL (3 mL) subcutaneous pen Calcitriol [Rocaltrol] 0.5 mcg PO DAILY 08/04/18 Aspirin [Aspirin, Baby] 81 mg PO DAILY@0800 08/21/18 Furosemide [Lasix] 20 mg PO BID 12/13/18 Surgical History: Surgical History (Last Reviewed 08/25/18 @ 11:25 by Minerva Sexton PA-C) History of appendectomy Z90.49 History of eye surgery Z98.890 Lt retinal tear History of cholecystectomy Z90.49 Surgical History: cholecystectomy, - - AVF rt forearm 08/08/18 Smoking Status: Never smoker Tobacco Use: Chew Alcohol: None Drugs: None - *Family History Maternal Family History: Family History (Last Reviewed 08/25/18 @ 11:25 by Minerva Sexton PA-C) Mother Heart disease Hypertension Father Cancer Brother Cancer Diabetes Sister Diabetes History Items: Heart Disease Paternal Family History: Family History (Last Reviewed 08/25/18 @ 11:25 by Minerva Sexton PA-C) Mother Heart disease Hypertension Father Cancer Brother Cancer Diabetes Sister Diabetes History Items: Cancer - Father w/ Colon CA. Sibling Family History: Family History (Last Reviewed 08/25/18 @ 11:25 by Minerva Sexton PA-C) Mother Heart disease Hypertension Father Cancer Brother Cancer Diabetes Sister Diabetes History Items: Diabetes - sister, brother who passed, no kidney disease Review of Systems Constitutional: Reports: Anorexia, Weight Change, Fatigue HEENT: Denies: Head Aches, Sinus Congestion, Sinus Drainage Cardiovascular: Denies: Chest Pain, Palpitations Respiratory: Denies: Cough, Shortness of breath at rest, Sputum production Gastrointestinal: Denies: Abdominal Pain, Nausea, Vomiting Genitourinary: Denies: Dysuria Musculoskeletal: Denies: Joint Pain, Joint Tenderness Skin: Denies: Rash, Wounds Neurological: Denies: Numbness, Tingling, Focal weakness Psychiatric: Reports: Depression Hematologic/ Lymphatic: Reports: Anemia, Easy Bruising, Easy Bleeding - Physical Exam General: Alert, Oriented x3, Cooperative HEENT: Atraumatic, PERRLA, EOMI, Normocephalic Neck: Supple, No JVD, Negative Carotid Bruits Lungs: Clear to auscultation, Normal air movement Cardiovascular: Regular rate, No murmurs Abdomen: Bowel Sounds Present, Soft, Non Tender Extremities: Edema - 2+ bilateral lower extremity, - - Right forearm fistula- good pulse, bruit and thrill Skin: No rashes, No breakdown Musculoskeletal: No Tenderness to Palpation of Joints or Extremities Neurological: Neuro grossly intact Psych/Mental Status: Normal Affect, Appropriate Vital Signs Temp Pulse Resp BP Pulse Ox 97.8 F 67 16 140/60 H 94 08/25/18 09:15 08/25/18 09:15 08/25/18 09:15 08/25/18 09:15 08/25/18 09:15 Oxygen Delivery Method Room Air Weight: 242 lb 11.663 oz Body Mass Index (BMI) 36.6 Finger Stick Blood Glucose 149 Intake and Output for Last 24 Hours 08/23/18 08/24/18 08/25/18 23:59 23:59 23:59 Intake Total 1090 / 1090 740 / 740 Output Total 1950 / 1950 2175 / 2175 0 / 0 Balance -860 / -860 -1435 / -1435 0 / 0 Microbiology Past 72 Hours 08/23/18 09:45 Enteric Bacteriology - Final Stool 08/23/18 09:45 C. difficile DNA Amplification - Final Stool Laboratory Tests Past 24 Hrs 08/25/18 06:10 Sodium 146 H Potassium 5.6 H Chloride 115 H Carbon Dioxide 21.0 BUN 72 H Creatinine 6.20 H Estim Creat Clear Calc 13.94 Est GFR (MDRD) Af Amer 12 L Est GFR (MDRD) Non-Af 10 L BUN/Creatinine Ratio 11.6 Glucose 111 H Calcium 8.0 L Phosphorus 6.5 H Albumin 2.0 L POC Glucose 08/25/18 08/24/18 08/24/18 06:51 22:13 16:52 POC Glucose 108 152 H 187 H 08/24/18 11:21 POC Glucose 142 H Assessment/Plan All Active Problems (Last Reviewed 07/18/18 @ 14:09 by Luzmaria Mccullough) Anasarca associated with disorder of kidney (Acute) Retention, urine (Acute) Acute on chronic diastolic CHF (congestive heart failure) (Acute) Acute hypoxemic respiratory failure (Ruled-out) Hypoglycemia (Acute) Acute respiratory failure with hypoxia (Ruled-out) ILDA (acute kidney injury) (Ruled-out) Right leg pain (Resolved) Chronic ulcer of 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 (Resolved) Cellulitis and abscess of right leg (Resolved) Hypertensive emergency (Resolved) Hypokalemia (Resolved) I have been consulted in conjunction with Dr. Phan. Impression: Stage V chronic renal failure. In need of tunneled dialysis catheter placement. Plan: Discussed patient with Dr. Phan. Dr. Phan will plan to perform a right tunneled dialysis chest catheters. Procedure details, risks and benefits have been explained. Patient has had the opportunity to ask and have questions answered. Patient verbally understands and agrees with the plan. Thank you for allowing us to participate in this patient's care. My recommendations will be available via electronic medical records. Code Visit Office Visits / Consults: 42039 IP Consult L3
[2018-08-25 12:55] LABS: Bedside Glucose 131 mg/dL (70-110)
[2018-08-25] MEDS: Sodium Polystyrene Sulfonate 15 GM/60 ML UDC 30 GM PO (12:56)
[2018-08-25 14:04] LABS: Albumin, Serum 2.5 g/dL (3.2-5.0); BUN 73 mg/dL (7-18); BUN/Creat Ratio 11.7 RATIO (10-20); Calcium,Total 8.4 mg/dL (8.5-10.1); Chloride 113 mmol/L (98-107); Creatinine, Serum 6.24 mg/dL (0.70-1.30); EST Glomerular Filtration Rate 10 mL/min (>60); Est Glom Filt Rate - Afr Amer 12 mL/min (>60); Estimated Creatinine Clearance 13.85 ml/min; Glucose 130 mg/dL (74-106); Phosphorus 6.6 mg/dL (2.5-4.9); Potassium 5.2 mmol/L (3.5-5.1); Sodium Level 142 mmol/L (136-145)
--- NOTE | 2018-08-25 14:54 | CHAPLAIN ---
Type of Pastoral Visit _x__ Initial Visit ___ Follow-up Visit ___ On-call Visit ___ General Patient Visit ___ Spiritual Assessment ___ Family Conference ___ Bereavement ___ Rapid Response ___ Code Blue ___ Other (describe below) Pastoral Care Referral From _x__ Patient ___ Family ___ Nurse ___ Physician ___ Assistant Child Care Teacher ___ Presto Log Operator ___ Other (describe below) Sacrament/Intervention _x__ Active listening ___ Anointing ___ Restorationism ___ Bereavement ___ Communion _x__ Danica exploration ___ ___ Life review _x__ Prayer ___ Reconciliation ___ Sacrament of Sick _x__ Supportive presence ___ Wedding ___ Other (describe below) Pastoral Comments patient welcomes future spiritual support and prayer;
--- NOTE | 2018-08-25 16:32 | DCINST_ITS ---
- Discharge Diagnoses Current Active Problems: Current Active and Chronic Problems (Last Reviewed 08/25/18 @ 11:25 by Minerva Sexton PA-C) Chronic renal failure, stage 5 (Chronic) You will use the following diet at home:: Renal (restricted protein/sodium) Your food should be the consistency of: Regular Discharge Activity: May Not Drive Call your doctor if you observe: Fever of 101 or Higher, Inability to have a bowel movement, Shortness of breath, Swelling in the ankles, Chest pain, Calf discomfort Allergies/Adverse Reactions: Allergies No Known Allergies Allergy (Verified 08/04/18 09:24) Medications to take at Discharge Gabapentin [Neurontin] 300 mg PO TIDCM 07/15/13 Bupropion HCl [Wellbutrin Xl] 300 mg PO DAILY 05/06/17 Atorvastatin Calcium [Lipitor] 20 mg PO QHS 11/19/17 Atenolol [Tenormin (beta elizabeth)] 100 mg PO DAILY 11/28/17 acetaminophen 500 mg tablet 1,000 mg PO DAILY PRN PRN tab 01/20/18 tamsulosin 0.4 mg capsule 0.4 mg PO DAILY cap 01/20/18 Amlodipine [Norvasc] 5 mg PO DAILY 03/02/18 hydralazine 25 mg tablet 25 mg PO TID 07/11/18 insulin glargine (U-100) 100 unit/mL (3 mL) subcutaneous pen 4 - 6 unit SQ QHS ml 07/11/18 Calcitriol [Rocaltrol] 0.5 mcg PO DAILY 08/04/18 Aspirin [Aspirin, Baby] 81 mg PO DAILY@0800 08/21/18 Calcium Acetate [Phoslo Gel Cap] 667 mg PO TIDCM #90 capsule 08/25/18 Furosemide [Lasix] 80 mg PO BID@1000,1800 #30 tablet 08/25/18 Insulin Aspart [Novolog Flexpen] 5 unit SQ TIDCM #0 08/25/18 The following prescriptions were given: Furosemide [Lasix] 80 mg PO BID@1000,1800 #30 tablet Calcium Acetate [Phoslo Gel Cap] 667 mg PO TIDCM #90 capsule Primary Care Physician: Zaida Mcneil MD [Primary Care Provider] - Please follow up with your Primary Care Physician in: in 1-2 weeks Test Results: Test results from this visit will be discussed in further detail at your follow- up appointment, if applicable. Please Follow Up With: Loida Montiel, When: IN 1 week with renal panel
--- NOTE | 2018-08-25 16:53 | PCM.DC.SUM ---
Discharge Date and Diagnosis Date of Admission: 08/21/18 Date of Discharge: 08/25/18 - Primary Discharge Diagnosis CKD stage V with nephrotic range proteinuria secondary to diabetic nephropathy Bilateral lower extremity edema and anasarca secondary to CKD stage V - Secondary Discharge Diagnosis Chronic Problems (Last Reviewed 08/25/18 @ 11:25 by Minerva Sexton PA-C) Chronic renal failure, stage 5 (Chronic) Ectopic cardiac beats (Chronic) Anemia of chronic renal failure, stage 4 (severe) (Chronic) Chronic renal failure, stage 4 (severe) (Chronic) Is currently following with nephrology. Also following with urology. Is trying to follow his low protein diet and feels he is doing well with it. Obesity (BMI 30-39.9) (Chronic) Noncompliance (Chronic) Diabetic neuropathy (Chronic) Diabetic nephropathy (Chronic) Diabetic retinopathy (Chronic) HTN (hypertension) (Chronic) HLD (hyperlipidemia) (Chronic) Blind left eye (Chronic) Diabetes mellitus type II, uncontrolled (Chronic) Dx : 1990 Discussed with patient need to check BG in pairs, learn carb counting and then we can determine I/C ratio for him at last visit. is doing well with his diet. He stopped his basalglar. He is willing to start again at lower dose and titrate back up. He will start at 10 units and increase by 2-3 units every 3 days if he is waking with higher BG than he went to bed with. I have also decrease his correction to 1-50 so that he is not going low after correction. I have given he an alternative correction scale to use if he needs less correction when he begins with higer dose of basaglar and finds his current correction may be too strong. On statin On asa Anxiety and depression (Chronic) GERD (gastroesophageal reflux disease) (Chronic) Chewing tobacco nicotine dependence (Chronic) History of acute myocardial infarction (Chronic) Hospital Course and Treatment Operations: None Summary of Care Provided: The patient is a 47 year old male with past medical history of CKD stage IV, nephrotic range proteinuria from diabetic nephropathy, hypertension, hyperlipidemia comes in with shortness of breath and weight gain. 1. CKD stage V, nephrotic proteinuria secondary to diabetic nephropathy with anasarca: Patient was seen by Dr. Montiel. Discussed with her. Continue Lasix 80 mg twice daily. Continue calcitriol and PhosLo. Discontinue Sky catheter. Low sodium and potassium diet. Follow-up appointment with Dr. Montiel on September 03 at 10 AM. Patient was seen by general surgery Dr. Satish Phan and follow-up on for outpatient dialysis tunnel catheter. Patient had 2D echo which shows EF 65% with normal diastolic. No regional wall motion abnormality. Moderate concentric LVH. Heart failure ruled out. 2 Acute hyperkalemia: K5.6. Repeat K5.2 after Kayexalate. Discussed with Dr. Montiel and huma for discharge. 3. Hypertensive urgency, uncontrolled, increase amlodipine to 10mg daily amlodipine, atenolol, hydralazine. Patient is discharged on amlodipine 10 mg daily, hydralazine and atenolol. 4. Diarrhea, non-infective, c. diff and enteric panel is negative, resolved 5. Anemia of CKD, stable 6. Type II DM complicated with retinopathy, neuropathy and nephropathy, sugars are fairly controlled, episodes of hypoglycemia. Discontinue premeal insulin, continue on Lantus and ISS as well as gabapentin. Patient has history of noncompliance with diabetes 7. Anxiety/depression, on bupropion 8. DVT PPx- Heparin SC Patient is discharged home. Follow-up with Dr. Satish Phan on for outpatient tunneled dialysis catheter and and Dr. Montiel on September 03. Discharge medications discussed with the patient. Discharge follow-up instructions completed. Total time spent, exact 35 minutes on discharge meds reconciliation, examination, review of imaging and blood test and discussion with the patient on follow-up instructions. [] Microbiology Past 72 Hours 08/23/18 09:45 Stool Enteric Bacteriology - Final 08/23/18 09:45 Stool C. difficile DNA Amplification - Final Laboratory Results 08/24/18 16:52: POC Glucose 187 H 08/24/18 22:13: POC Glucose 152 H 08/25/18 06:10: Sodium 146 H, Potassium 5.6 H, Chloride 115 H, Carbon Dioxide 21.0, BUN 72 H, Creatinine 6.20 H, Estim Creat Clear Calc 13.94, Est GFR (MDRD) Af Amer 12 L, Est GFR (MDRD) Non-Af 10 L, BUN/Creatinine Ratio 11.6, Glucose 111 H, Calcium 8.0 L, Phosphorus 6.5 H, Albumin 2.0 L 08/25/18 06:51: POC Glucose 108 08/25/18 11:57: POC Glucose 131 H 08/25/18 13:40: Sodium 142, Potassium 5.2 H, Chloride 113 H, Carbon Dioxide 22.0, BUN 73 H, Creatinine 6.24 H, Estim Creat Clear Calc 13.85, Est GFR (MDRD) Af Amer 12 L, Est GFR (MDRD) Non-Af 10 L, BUN/Creatinine Ratio 11.7, Glucose 130 H, Calcium 8.4 L, Phosphorus 6.6 H, Albumin 2.5 L Subjective: The patient was seen and examined today. Discussed with Dr. Montiel. Patient has bilateral lower extremity edema 24-hour urine is suggestive of nephrotic range proteinuria. K5.6, creatinine 6.2, BUN 72. In the morning, there was thought process of putting permacath and Dr. Satish Phan was consulted. Consult reviewed and appreciated. His insurance would not cover for inpatient dialysis tunnel catheter and therefore she advised to repeat BMP in the afternoon. Blood pressure is better. Patient has history of noncompliance. Kayexalate [address] Montiel. Repeat BMP shows K5.2. - Physical Exam General: Alert, Oriented x3, Cooperative HEENT: Atraumatic, PERRLA, EOMI, Normocephalic Neck: Supple, No JVD, Negative Carotid Bruits Lungs: Clear to auscultation, No rhonchi, No wheeze, No rales, Diminished Cardiovascular: Regular rate, Regular Rhythm, Normal S1, Normal S2, No murmurs Abdomen: Bowel Sounds Present, Soft, Non Tender, Non-Distended Extremities: Capillary Refill Less than 3 Seconds, Edema Skin: No rashes, No breakdown, - - Right forearm AV fistula on 08/08 Musculoskeletal: No Tenderness to Palpation of Joints or Extremities, Arthritic Changes Neurological: Cranial nerves II-XII grossly intact, Deep Tendon Reflexes 2+/4 and Symmetrical, Neuro grossly intact, Motor Exam 5/5 strength throughout Psych/Mental Status: Normal Affect, Appropriate Vital Signs Temp Pulse Resp BP Pulse Ox 98.3 F 71 16 151/76 H 93 08/25/18 13:05 08/25/18 15:07 08/25/18 13:05 08/25/18 13:05 08/25/18 13:05 Oxygen Delivery Method Room Air Weight: 242 lb 11.663 oz Body Mass Index (BMI) 36.6 Finger Stick Blood Glucose 149 Intake and Output for Last 24 Hours 08/23/18 08/24/18 08/25/18 23:59 23:59 23:59 Intake Total 1090 / 1090 740 / 740 120 / 120 Output Total 1950 / 1950 2175 / 2175 250 / 250 Balance -860 / -860 -1435 / -1435 -130 / -130 Microbiology Past 72 Hours 08/23/18 09:45 Enteric Bacteriology - Final Stool 08/23/18 09:45 C. difficile DNA Amplification - Final Stool Laboratory Tests Past 24 Hrs 08/25/18 08/25/18 06:10 13:40 Sodium 146 H 142 Potassium 5.6 H 5.2 H Chloride 115 H 113 H Carbon Dioxide 21.0 22.0 BUN 72 H 73 H Creatinine 6.20 H 6.24 H Estim Creat Clear Calc 13.94 13.85 Est GFR (MDRD) Af Amer 12 L 12 L Est GFR (MDRD) Non-Af 10 L 10 L BUN/Creatinine Ratio 11.6 11.7 Glucose 111 H 130 H Calcium 8.0 L 8.4 L Phosphorus 6.5 H 6.6 H Albumin 2.0 L 2.5 L POC Glucose 08/25/18 08/25/18 08/24/18 11:57 06:51 22:13 POC Glucose 131 H 108 152 H 08/24/18 16:52 POC Glucose 187 H Discharge Activity: May Not Drive Call your doctor if you observe: Fever of 101 or Higher, Inability to have a bowel movement, Shortness of breath, Swelling in the ankles, Chest pain, Calf discomfort Home Medications: Medications to take at Discharge Gabapentin [Neurontin] 300 mg PO TIDCM 07/15/13 Bupropion HCl [Wellbutrin Xl] 300 mg PO DAILY 05/06/17 Atorvastatin Calcium [Lipitor] 20 mg PO QHS 11/19/17 Atenolol [Tenormin (beta elizabeth)] 100 mg PO DAILY 11/28/17 acetaminophen 500 mg tablet 1,000 mg PO DAILY PRN PRN tab 01/20/18 tamsulosin 0.4 mg capsule 0.4 mg PO DAILY cap 01/20/18 hydralazine 25 mg tablet 25 mg PO TID 07/11/18 insulin glargine (U-100) 100 unit/mL (3 mL) subcutaneous pen 4 - 6 unit SQ QHS ml 07/11/18 Calcitriol [Rocaltrol] 0.5 mcg PO DAILY 08/04/18 Aspirin [Aspirin, Baby] 81 mg PO DAILY@0800 08/21/18 Amlodipine [Norvasc] 10 mg PO DAILY #30 tablet 08/25/18 Calcium Acetate [Phoslo Gel Cap] 667 mg PO TIDCM #90 capsule 08/25/18 Furosemide [Lasix] 80 mg PO BID@1000,1800 #30 tablet 08/25/18 Insulin Lispro [Humalog KwikPen] See Protocol SQ ACHS insuln.pen 08/25/18 Following Prescrptions Were Given to Patient: Amlodipine [Norvasc] 10 mg PO DAILY #30 tablet Furosemide [Lasix] 80 mg PO BID@1000,1800 #30 tablet Calcium Acetate [Phoslo Gel Cap] 667 mg PO TIDCM #90 capsule Primary Care Physician: Zaida Mcneil MD [Primary Care Provider] - Please follow up with your Primary Care Physician in: in 1-2 weeks Please Follow Up With: Loida Montiel DO When: IN 1 week with renal panel Medical Necessity - Tobacco Use Smoking Status: Never smoker Tobacco Use: Chew Meaningful Use Info Meaningful Use Diagnoses (Choose all that apply): None applicable Code Visit Inpatient E&M: 88887 Disch Hosp
[2018-08-25] MEDS: Insulin Lispro 100 UNIT/ML INSULN.PEN SQ (17:12)
[2018-08-25 17:35] LABS: Bedside Glucose 205 mg/dL (70-110)
--- NOTE | 2018-08-26 15:46 | CASEMGMT ---
ANDER CM Discharge F/U Phone Call LACE: 13 Strata: 4 Discharge date: 08/25/18 Call date: 08/26/18 Call time: [id number] Duration:1 minute Admission dx: Renal failure, CHF When answers phone, pt states he that he is back to ED because he had some hematuria and he is 'still in pain.' CM will follow ED visit. [place] ANDER GUERRA
== END 2018-08-25 18:45 | disposition home or self-care (01) | DRG 699 ==
LOC: ED 17:45 → PCU 19:08
PROVIDERS: Internal Medicine; Internal Medicine Nephrology; Admitting Provider Family Medicine; Emergency Provider Emergency Medicine; Family Provider Internal Medicine; PCP Internal Medicine; Visit Provider Internal Medicine
DX: E11.22 Type 2 diabetes mellitus with diabetic chronic kidney disease (principal); I12.0 Hypertensive chronic kidney disease with stage 5 chronic kidney disease or end stage renal disease; N18.5 Chronic kidney disease, stage 5; E11.40 Type 2 diabetes mellitus with diabetic neuropathy, unspecified; E11.649 Type 2 diabetes mellitus with hypoglycemia without coma; D63.1 Anemia in chronic kidney disease; E11.319 Type 2 diabetes mellitus with unspecified diabetic retinopathy without macular edema; E66.9 Obesity, unspecified; I16.0 Hypertensive urgency; E87.5 Hyperkalemia; R19.7 Diarrhea, unspecified; E78.5 Hyperlipidemia, unspecified; K21.9 Gastro-esophageal reflux disease without esophagitis; F17.220 Nicotine dependence, chewing tobacco, uncomplicated; F32.9 Major depressive disorder, single episode, unspecified; F41.9 Anxiety disorder, unspecified; H54.62 Unqualified visual loss, left eye, normal vision right eye; Z68.36 Body mass index [BMI] 36.0-36.9, adult; Z79.4 Long term (current) use of insulin; Z79.899 Other long term (current) drug therapy; Z91.19 Patient's noncompliance with other medical treatment and regimen
CPT/HCPCS: 36415; 71045; 80048; 80053; 80069; 81001; 82575; 82962; 83880; 83970; 84156; 84484; 85025; 85027; 87493; 87506; 93005; 93306; 97802; 97803; 99282; A4216; J1940

== ENCOUNTER 2018-08-26 15:52 | Inpatient (IN) | payer MEDICARE, SELFPAY ==
[2018-08-26] VITALS (8 sets, daily range): BP systolic 130–186; BP diastolic 69–86; PULSE 72–80; RESP 14–20; TEMP 36.6–37; O2SAT 88–96; BMI 36.7; BMI 36.3
--- NOTE | 2018-08-26 16:32 | RAD_ITS ---
STUDY: X-RAY CHEST REASON FOR EXAM: Male, 47 years old. Dyspnea, hemoptysis. TECHNIQUE: PA and lateral chest. COMPARISON: 08/21/2018. FINDINGS: There is a small left pleural effusion. Mild opacities are noted in the lung bases, suspicious for pneumonia. Upper lung zones are clear. There is mild cardiac enlargement. Normal mediastinum and reena. Normal visualized pulmonary arteries. Normal visualized aortic arch and descending thoracic aorta. Normal visualized thoracic spine. Normal visualized ribs, clavicles, and shoulders. There is no demonstrated abnormality of the visualized soft tissue structures of the upper abdomen. RAD/Chest PA and Lateral IMPRESSION: 1. Small left pleural effusion. 2. Bibasilar pneumonia. Electronically Signed: Anita Cerna MD at 17:59 EST Tel , Service support ,
[2018-08-26 17:01] LABS: Absolute Lymphocyte Count 1.26 X10^3/ul (0.83-4.51); Absolute Neutrophil Count 5.7 X10^3/uL (2.0-7.7); Basophil# 0.02 X10^3/uL; Basophil% 0.3 % (0-1); Eosinophils% 1.3 % (0-5); Hematocrit 29.3 % (40-54); Hemoglobin 9.8 g/dl (13.0-16.5); Lymphocyte # 1.26 X10^3/ul (4.0); Lymphocyte % 16.5 % (19-41); Mean Corp Hgb Conc 33.4 g/gl (32-36); Mean Corpuscular Hgb 29.9 pg (27.0-32.0); Mean Corpuscular Volume 89.3 fL (80-94); Mean Platelet Vol. 9.4 fl (6.2-12.0); Monocyte# 0.53 X10^3/uL; Monocyte% 6.9 % (0-10); Neutrophil # 5.74 X10^3/uL (2.7-7.7); Platelet Count 209 K/mm3 (150-450); RBC Distribution Width CV 13.5 % (11.6-14.6); RBC Distribution Width SD 44.3 fl (35.1-43.9); Red Blood Count 3.28 M/mm3 (4.6-6.2); White Blood Count 7.7 K/mm3 (4.4-11.0)
[2018-08-26 17:04] LABS: POSITIVE COUNT NO; POSITIVE DIFFERENTIAL NO; POSITIVE MORPHOLOGY NO
[2018-08-26 17:13] LABS: Anion Gap 10 (5-15); BUN 78 mg/dL (7-18); Calcium,Total 8.1 mg/dL (8.5-10.1); Chloride 112 mmol/L (98-107); Creatinine, Serum 6.49 mg/dL (0.70-1.30); EST Glomerular Filtration Rate 10 mL/min (>60); Est Glom Filt Rate - Afr Amer 12 mL/min (>60); Estimated Creatinine Clearance 13.32 ml/min; Glucose 105 mg/dL (74-106); Potassium 5.1 mmol/L (3.5-5.1); Sodium Level 143 mmol/L (136-145)
[2018-08-26 17:28] LABS: BNP,B-Type NATRIURETIC PEPTIDE 810.1 pg/mL (0-100)
[2018-08-26 18:24] LABS: Partial Thromboplast Time 32.6 Seconds (24.1-36.2); Prothrombin Time (Protime)PT. 13.1 SECONDS (11.7-14.9)
[2018-08-26] MEDS: Furosemide 40 MG/4 ML Vial IV (19:22)
[2018-08-26] MEDS: Nitroglycerin Oint 1 INCH PACKET TRANSDERM. (19:25)
--- NOTE | 2018-08-26 20:31 | HP.PCM_ITS ---
History of Present Illness Date of Admission: 08/26/18 Chief Complaint: hemoptysis, shortness of breath The patient is a 47 year old M past medical history of CKD stage V, hypertension and diabetes. He was admitted through the ED on 08/26/2018 with a complaint of shortness of breath, coughing up of blood and swelling of his lower extremities of one day duration. Patient was just discharged from [facility] on 08/25/2018 after he was admitted for edema and shortness of breath which was thought to be due to worsening of his CKD. He had been scheduled to have a dialysis catheter placed on Saturday. However he deteriorated and swelling of his lower extremities worsen after he went home. He had assisted shortness of breath with orthopnea and PND. He also coughed up blood twice. He therefore decided to come back to the ED. The ED vitals were significant for blood pressure of 171/78 but otherwise unremarkable he was saturating at 96% on 2 L of oxygen. CBC was significant for hemoglobin of 9.8 and BMP showed creatinine of 6.49 with BUN of 78 and potassium of 5.1. BNP was 810. Chest x-ray showed small left pleural effusion and mild opacities in the lung bases suspicious for pneumonia. He is been admitted to be managed for fluid overload likely due to worsening of CKD stage 5. [] Past Medical History Past Medical History (Chronic Problems): Chronic Problems (Last Reviewed 08/25/18 @ 11:25 by Minerva Sexton PA-C) Chronic renal failure, stage 5 (Chronic) Ectopic cardiac beats (Chronic) Anemia of chronic renal failure, stage 4 (severe) (Chronic) Chronic renal failure, stage 4 (severe) (Chronic) Is currently following with nephrology. Also following with urology. Is trying to follow his low protein diet and feels he is doing well with it. Obesity (BMI 30-39.9) (Chronic) Noncompliance (Chronic) Diabetic neuropathy (Chronic) Diabetic nephropathy (Chronic) Diabetic retinopathy (Chronic) HTN (hypertension) (Chronic) HLD (hyperlipidemia) (Chronic) Blind left eye (Chronic) Diabetes mellitus type II, uncontrolled (Chronic) Dx : 1993 Discussed with patient need to check BG in pairs, learn carb counting and then we can determine I/C ratio for him at last visit. is doing well with his diet. He stopped his basalglar. He is willing to start again at lower dose and titrate back up. He will start at 10 units and increase by 2-3 units every 3 days if he is waking with higher BG than he went to bed with. I have also decrease his correction to 1-50 so that he is not going low after correction. I have given he an alternative correction scale to use if he needs less correction when he begins with higer dose of basaglar and finds his current correction may be too strong. On statin On asa Anxiety and depression (Chronic) GERD (gastroesophageal reflux disease) (Chronic) Chewing tobacco nicotine dependence (Chronic) History of acute myocardial infarction (Chronic) Medical History: Medical History (Last Reviewed 08/25/18 @ 11:25 by Minerva Sexton PA-C) Anasarca associated with disorder of kidney (Acute) N04.9 Anemia of chronic renal failure, stage 4 (severe) (Chronic) N18.4, D63.1 Autonomic neuropathy (Suspected) G90.9 Chronic renal failure, stage 4 (severe) (Chronic) N18.4 Is currently following with nephrology. Also following with urology. Is trying to follow his low protein diet and feels he is doing well with it. Retention, urine (Acute) R33.9 Acute on chronic diastolic CHF (congestive heart failure) (Acute) I50.33 Acute hypoxemic respiratory failure (Ruled-out) J96.01 Hypoglycemia (Acute) E16.2 resolved in ED Acute respiratory failure with hypoxia (Ruled-out) J96.01 Obesity (BMI 30-39.9) (Chronic) E66.9 Noncompliance (Chronic) Z91.19 Diabetic neuropathy (Chronic) E11.40 Diabetic nephropathy (Chronic) E11.21 Diabetic retinopathy (Chronic) E11.319 HTN (hypertension) (Chronic) I10 HLD (hyperlipidemia) (Chronic) E78.5 Blind left eye (Chronic) H54.40 Diabetes mellitus type II, uncontrolled (Chronic) E11.65 Dx : 1993 Discussed with patient need to check BG in pairs, learn carb counting and then we can determine I/C ratio for him at last visit. is doing well with his diet. He stopped his basalglar. He is willing to start again at lower dose and titrate back up. He will start at 10 units and increase by 2-3 units every 3 days if he is waking with higher BG than he went to bed with. I have also decrease his correction to 1-50 so that he is not going low after correction. I have given he an alternative correction scale to use if he needs less correction when he begins with higer dose of basaglar and finds his current correction may be too strong. On statin On asa Anxiety and depression (Chronic) F41.9, F32.9 GERD (gastroesophageal reflux disease) (Chronic) K21.9 Chewing tobacco nicotine dependence (Chronic) F17.220 ILDA (acute kidney injury) (Ruled-out) N17.9 Right leg pain (Resolved) M79.604 Chronic ulcer of 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 (Resolved) L97.912 Cellulitis and abscess of right leg (Resolved) L03.115, L02.415 History of acute myocardial infarction (Chronic) I25.2 Kidney failure N19 Kidney stones N20.0 Pneumonia J18.9 Vision problems H54.7 Hypertensive emergency (Resolved) I16.1 Hypokalemia (Resolved) E87.6 Allergies No Known Allergies Allergy (Verified 08/26/18 15:55) Home Medications: Ambulatory Orders Medication Instructions Recorded Gabapentin [Neurontin] 300 mg PO TIDCM 07/15/13 Atorvastatin Calcium [Lipitor] 20 mg PO QHS 11/19/17 Atenolol [Tenormin (beta elizabeth)] 100 mg PO DAILY 11/28/17 tamsulosin 0.4 mg capsule 0.4 mg PO DAILY cap 01/20/18 hydralazine 25 mg tablet 25 mg PO TID 07/11/18 insulin glargine (U-100) 100 4 - 6 unit SQ QHS ml 07/11/18 unit/mL (3 mL) subcutaneous pen Calcitriol [Rocaltrol] 0.5 mcg PO DAILY 08/04/18 Aspirin [Aspirin, Baby] 81 mg PO DAILY@0800 08/21/18 Calcium Acetate [Phoslo Gel Cap] 667 mg PO TIDCM #90 capsule 08/25/18 Furosemide [Lasix] 80 mg PO BID@1000,1800 #30 tablet 08/25/18 Insulin Lispro [Humalog KwikPen] See Protocol SQ ACHS insuln.pen 08/25/18 Acetaminophen [Tylenol Extra 1,000 mg PO Q6H PRN PRN 08/26/18 Strength] Amlodipine [Norvasc] 5 mg PO DAILY 08/26/18 Bupropion HCl [Bupropion Xl] 300 mg PO DAILY 08/26/18 Surgical History: Surgical History (Last Reviewed 08/25/18 @ 11:25 by Minerva Sexton PA-C) History of appendectomy Z90.49 History of eye surgery Z98.890 Lt retinal tear History of cholecystectomy Z90.49 Surgical History: cholecystectomy, - - AVF rt forearm 08/08/18 Smoking Status: Never smoker - *Family History Maternal Family History: Family History (Last Reviewed 08/25/18 @ 11:25 by Minerva Sexton PA-C) Mother Heart disease Hypertension Father Cancer Brother Cancer Diabetes Sister Diabetes History Items: Heart Disease Paternal Family History: Family History (Last Reviewed 08/25/18 @ 11:25 by Minerva Sexton PA-C) Mother Heart disease Hypertension Father Cancer Brother Cancer Diabetes Sister Diabetes History Items: Cancer - Father w/ Colon CA. Sibling Family History: Family History (Last Reviewed 08/25/18 @ 11:25 by Minerva Sexton PA-C) Mother Heart disease Hypertension Father Cancer Brother Cancer Diabetes Sister Diabetes History Items: Diabetes - sister, brother who passed, no kidney disease Review of Systems Constitutional: Reports: Malaise. Denies: Chills, Fever, Weight Change Eyes: Denies: Blurred vision HEENT: Denies: Head Aches, Sinus Congestion, Sinus Drainage Cardiovascular: Reports: Edema. Denies: Chest Pain, Palpitations Respiratory: Reports: Cough, Hemoptysis, Shortness of Breath, Shortness of breath at rest, Shortness of breath upon exertion. Denies: Sputum production Gastrointestinal: Denies: Abdominal Pain, Nausea, Vomiting Genitourinary: Denies: Dysuria Musculoskeletal: Denies: Joint Pain, Joint Tenderness Skin: Denies: Rash, Wounds Neurological: Denies: Numbness, Tingling, Focal weakness Psychiatric: Denies: Anxiety, Depression, Homicidal Ideations, Suicidal Ideations Hematologic/ Lymphatic: Denies: Easy Bruising, Easy Bleeding VTE Information - Inpt Only VTE Present on Admission: No VTE Mechan Device Prophylaxis: SCD's - Physical Exam General: Alert, Oriented x3, Cooperative, No apparent distress HEENT: Atraumatic, PERRLA, EOMI, Normocephalic Oral: Moist Mucosa Neck: Supple, No JVD, Negative Carotid Bruits Lungs: - - decreased breath sounds bibasally and in mid lung faye. No wheezing or crackles auscultated Cardiovascular: Regular rate, Regular Rhythm, Normal S1, Normal S2, No murmurs Abdomen: Bowel Sounds Present, Soft, Non Tender Extremities: No clubbing, No cyanosis, - - 2+ edema of LEs; has compression stockings on Skin: No rashes, No breakdown Musculoskeletal: No Tenderness to Palpation of Joints or Extremities Lymphatic: No Cervical, Supraclavicular, or Inguinal Adenopathy Neurological: Cranial nerves II-XII grossly intact, Neuro grossly intact, Motor Exam 5/5 strength throughout Psych/Mental Status: Normal Affect, Appropriate, Alert and oriented to time, place, person, mood and affect Vital Signs Temp Pulse Resp BP Pulse Ox 97.8 F 75 18 171/78 H 96 08/26/18 15:53 08/26/18 20:23 08/26/18 20:23 08/26/18 20:23 08/26/18 20:23 Oxygen Flow Rate (L/min) 2 Oxygen Delivery Method Nasal Cannula Weight: 241 lb 6.499 oz Body Mass Index (BMI) 36.7 Finger Stick Blood Glucose 149 Laboratory Tests Past 24 Hrs 08/26/18 08/26/18 08/26/18 16:50 16:50 16:50 WBC 7.7 RBC 3.28 L Hgb 9.8 L Hct 29.3 L MCV 89.3 MCH 29.9 MCHC 33.4 RDW 13.5 RDW Differential 44.3 H Plt Count 209 MPV 9.4 Immature Gran % (Auto) 0.000 Neut % (Auto) 75.0 H Lymph % (Auto) 16.5 L [place] % (Auto) 6.9 Eos % (Auto) 1.3 Baso % (Auto) 0.3 Absolute Neuts (auto) 5.7 Absolute Lymphs (auto) 1.26 Total Counted Not Reportable PT Cancelled INR Cancelled APTT Cancelled Sodium 143 Potassium 5.1 Chloride 112 H Carbon Dioxide 21.0 Anion Gap 10 BUN 78 H Creatinine 6.49 H Estim Creat Clear Calc 13.32 Est GFR (MDRD) Af Amer 12 L Est GFR (MDRD) Non-Af 10 L BUN/Creatinine Ratio 12.0 Glucose 105 Calcium 8.1 L B-Natriuretic Peptide 12/18/18 12/18/18 16:50 17:50 WBC RBC Hgb Hct MCV MCH MCHC RDW RDW Differential Plt Count MPV Immature Gran % (Auto) Neut % (Auto) Lymph % (Auto) [place] % (Auto) Eos % (Auto) Baso % (Auto) Absolute Neuts (auto) Absolute Lymphs (auto) Total Counted PT 13.1 INR 1.0 APTT 32.6 Sodium Potassium Chloride Carbon Dioxide Anion Gap BUN Creatinine Estim Creat Clear Calc Est GFR (MDRD) Af Amer Est GFR (MDRD) Non-Af BUN/Creatinine Ratio Glucose Calcium B-Natriuretic Peptide 810.1 H Diagnostic Data Chest X-Ray 08/26/18 16:32 IMPRESSION: 1. Small left pleural effusion. 2. Bibasilar pneumonia. Electronically Signed: Anita Cerna MD at 17:59 EST Tel , Service support , Assessment/Plan All Active Problems (Last Reviewed 08/25/18 @ 11:25 by Minerva Sexton PA-C) Anasarca associated with disorder of kidney (Acute) Retention, urine (Acute) Acute on chronic diastolic CHF (congestive heart failure) (Acute) Acute hypoxemic respiratory failure (Ruled-out) Hypoglycemia (Acute) Acute respiratory failure with hypoxia (Ruled-out) ILDA (acute kidney injury) (Ruled-out) Right leg pain (Resolved) Chronic ulcer of 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 (Resolved) Cellulitis and abscess of right leg (Resolved) Hypertensive emergency (Resolved) Hypokalemia (Resolved) 47-year-old male admitted with a complaint of hemoptysis and worsening shortness of breath as well as lower extremity edema. 1. Shortness of breath likely due to acute diastolic heart failure and progression of CKD V * was just discharged 1 day ago after being admitted for similar symptoms * BNP is 810 * Cr up to 6.49; eGFR is 10 * CXR shows bibasilar opacities; but clinically patient appears fluid overloaded and doesnt have any other signs or symptoms of pneumonia. I think his symptoms and CXR findings are all due to fluid overload from CKD V and heart failure * admit to PCU with telemetry * given IV lasix 40mg once in ED; will continue IV lasix 40mg bid * nephrology consult; will likely need dialysis catheter placed tomorrow so dialysis can be initiated * 2. Hemoptysis likely due to CKD V and uremia * coughed up blood twice; currently asymptomatic * will monitor closely * 3. CKD IV; as under 1. 4. Anemia of chronic disease: hb is 9.8. Likely due to CKD; will monitor 5. 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 HFpEF: as under 1. Known EF of 65% per recent echo. Management as under 1. 7. Anxiety adn depression: on bupropion Code status: full code * patient counseled extensively about different types of CODE STATUS including full code, DNR CCA and DNR CCA. Patient elects to be full code. Total [id number] time 16 minutes. Code Visit Inpatient E&M: 35090 Init Hosp L3 Procedures: 96901 Advncd Care Plan 30 Min
[2018-08-26] MEDS: Atorvastatin Calcium 20 MG Tablet PO (22:14)
[2018-08-26] MEDS: hydrALAZINE 25 MG Tablet PO (22:14)
[2018-08-26] MEDS: Insulin Lispro 100 UNIT/ML INSULN.PEN SC (22:27)
[2018-08-26 22:35] LABS: Bedside Glucose 177 mg/dL (70-110)
[2018-08-27] VITALS (23 sets, daily range): BP systolic 142–180; BP diastolic 65–94; PULSE 66–77; RESP 16–18; TEMP 36.1–37; O2SAT 93–99; BMI 35.9
--- NOTE | 2018-08-27 01:34 | ED.VISSUMM ---
- ER Visit Summary Date of Service: 08/26/18 Chief Complaint: Shortness of breath, hemoptysis History of Present Illness: The patient is a 47 M with a history of chronic renal failure, diabetes, hypertension, high cholesterol, CHF. Patient was admitted August 21 for anasarca and renal failure. Today he had some nasal congestion. He states he sniffed and spit in the toilet and noted some blood in the mucus. He is also complaining of increased shortness of breath just from walking room to room. He states when he was in the hospital he was able to walk the halls of the hospital without difficulty. Patient is to have a dialysis line placed this week. He has not noted fever or significant change in chronic cough. Physical Examination: Vital signs unremarkable. Patient sitting upright in bed no acute distress. He speaking full sentences. Heart is regular rate and rhythm. Lungs sounds are slightly diminished throughout. Abdomen is soft nontender. Test Results: Two-view chest x-ray reveals small left pleural effusion. Bibasilar pneumonia is read by radiology. CBC was normal white count with a hemoglobin of 9.8. This is consistent with his prior values. Chemistry studies significant for a BUN of 78 and creatinine is 6.49. This again is consistent with his baseline. His BNP today is 810, slightly up from his last admission. Emergency Department Course and Treatment: On repeat evaluation the patient is on 2 L nasal cannula. Nurse reports his sat dropped to 88%. She tried to reposition the patient and have him take deep breaths without improvement. At this time he is given a dose of Lasix and nitro paste is placed on his chest. As he is currently requiring oxygen he will require admission overnight. I spoken with the hospitalist. Treatment Plan: [] Disposition: Admit Impression: 1. CHF 2. Chronic renal failure This note was generated with [employer] dictation software. It may contain incorrect words, spelling, and punctuation that were not noted in review of the chart prior to signing ED Disposition - Plan for ED Patient: Chief Complaint: Shortness of Breath
[2018-08-27] MEDS: hydrALAZINE 25 MG Tablet PO ×2 (06:54→18:43)
[2018-08-27 06:57] LABS: Absolute Lymphocyte Count 1.29 X10^3/ul (0.83-4.51); Absolute Neutrophil Count 5.5 X10^3/uL (2.0-7.7); Basophil# 0.03 X10^3/uL; Basophil% 0.4 % (0-1); Eosinophil# 0.12 X10^3/uL; Eosinophils% 1.6 % (0-5); Hematocrit 26.8 % (40-54); Hemoglobin 8.5 g/dl (13.0-16.5); Lymphocyte # 1.29 X10^3/ul (4.0); Lymphocyte % 17.2 % (19-41); Mean Corp Hgb Conc 31.7 g/gl (32-36); Mean Corpuscular Hgb 29.4 pg (27.0-32.0); Mean Corpuscular Volume 92.7 fL (80-94); Monocyte# 0.59 X10^3/uL; Monocyte% 7.8 % (0-10); Neutrophil # 5.48 X10^3/uL (2.7-7.7); Neutrophil % 72.9 % (47-70); Platelet Count 210 K/mm3 (150-450); RBC Distribution Width CV 13.1 % (11.6-14.6); RBC Distribution Width SD 42.9 fl (35.1-43.9); Red Blood Count 2.89 M/mm3 (4.6-6.2); White Blood Count 7.5 K/mm3 (4.4-11.0)
[2018-08-27 07:00] LABS: POSITIVE COUNT NO; POSITIVE DIFFERENTIAL NO; POSITIVE MORPHOLOGY NO
[2018-08-27 07:06] LABS: Bedside Glucose 111 mg/dL (70-110)
--- NOTE | 2018-08-27 07:06 | PCM.PN.BLA ---
Progress Note We had heard that pt was going to ER last night. I noticed he is admitted and dialysis catheters are wanted? We will tentatively plan for later today pending physician agreement. Canelo
[2018-08-27 07:19] LABS: Albumin, Serum 2.1 g/dL (3.2-5.0); BUN 80 mg/dL (7-18); BUN/Creat Ratio 12.1 RATIO (10-20); Chloride 114 mmol/L (98-107); Creatinine, Serum 6.61 mg/dL (0.70-1.30); EST Glomerular Filtration Rate 10 mL/min (>60); Est Glom Filt Rate - Afr Amer 12 mL/min (>60); Estimated Creatinine Clearance 13.08 ml/min; Glucose 106 mg/dL (74-106); Phosphorus 6.3 mg/dL (2.5-4.9); Potassium 5.2 mmol/L (3.5-5.1); Sodium Level 146 mmol/L (136-145)
--- NOTE | 2018-08-27 08:43 | PCM.CONS.R ---
Consultation - Renal 08/27/18 PCP/ Referring MD: Requesting physician: [] Primary care physician: Zaida Mcneil MD Reason for Consultation:: CKD stage 5 - History of Present Illness History of Present Illness: The patient is a 47 year old M with CKD stage 5 due to hx poorly controlled diabetes, hypertension, nephrotic proteinuria recently discharged from [facility] on 08/25 after treated for CHF, SOB, edema. He has chronic leg swelling due to nephrotic proteinuria. 24h urine CRCL 16cc/min collected during last hospitalization. He was scheduled to f/u with me in the office this morning. He went to ER after labeling strategist suggested to go to ER when he went in for lab draw yesterday. He had hemoptysis with productive cough. Breathing is stable now. Oxygenation was 88% in ER. He was diuresing well on lasix 80mg. Denied CP, nausea, vomiting. Creatinine increased to 6.6. Will initiate dialysis after tunneled catheter placed by Dr. Phan later this afternoon for worsening renal function and worsening edema, CHF. - Allergies Allergies: Allergies No Known Allergies Allergy (Verified 08/26/18 15:55) - Current Medications Current Medications: Current Medications Acetaminophen (Tylenol) 1,000 mg PO Q6H PRN PRN PRN Reason: PAIN Amlodipine Besylate (Norvasc) 5 mg PO DAILY [facility] Aspirin (Aspirin, Baby) 81 mg PO DAILY@0800 [facility] Atenolol (Tenormin (Beta Silvana)) 100 mg PO DAILY [facility] Atorvastatin Calcium (Lipitor) 20 mg PO QHS [facility] Last Admin: 08/26/18 22:14 Dose: 20 mg Bupropion HCl (Wellbutrin Xl) 300 mg PO DAILY [facility] Calcitriol (Rocaltrol) 0.5 mcg PO DAILY [facility] Calcium Acetate (Phoslo Gel Cap) 667 mg PO TIDCM [facility] Epoetin Mika (Procrit) 10,000 units IV X1 ONE Stop: 08/27/18 09:01 Furosemide (Lasix) 60 mg IV BID@1000,1800 [facility] Gabapentin (Neurontin) 300 mg PO TIDCM [facility] Hydralazine HCl (Apresoline) 25 mg PO TID [facility] Last Admin: 08/27/18 06:54 Dose: 25 mg Cefazolin Sodium 2 gm/ Sodium (Chloride) 120 mls @ 240 mls/hr IV SEND TO OR W/PATIENT ONE Stop: 08/27/18 15:59 Insulin Human Lispro (Humalog Kwikpen (Bkc)) 0 unit SC ACHS HEDY; Protocol Last Admin: 08/27/18 07:34 Dose: Not Given Magnesium Hydroxide (Milk Of Magnesia) 30 ml PO DAILY PRN PRN PRN Reason: Constipation Nutritional Formula (Nepro Carb Steady) 120 ml PO 4X/DAY HEDY Sodium Chloride () 5 - 15 ml IV UD PRN PRN Reason: SALINE FLUSH Tamsulosin HCl (Flomax) 0.4 mg PO DAILY HEDY - Past Medical History Past Medical History (Chronic Problems): Chronic Problems (Last Reviewed 08/25/18 @ 11:25 by Minerva Sexton PA-C) Chronic renal failure, stage 5 (Chronic) Ectopic cardiac beats (Chronic) Anemia of chronic renal failure, stage 4 (severe) (Chronic) Chronic renal failure, stage 4 (severe) (Chronic) Is currently following with nephrology. Also following with urology. Is trying to follow his low protein diet and feels he is doing well with it. Obesity (BMI 30-39.9) (Chronic) Noncompliance (Chronic) Diabetic neuropathy (Chronic) Diabetic nephropathy (Chronic) Diabetic retinopathy (Chronic) HTN (hypertension) (Chronic) HLD (hyperlipidemia) (Chronic) Blind left eye (Chronic) Diabetes mellitus type II, uncontrolled (Chronic) Dx : 1993 Discussed with patient need to check BG in pairs, learn carb counting and then we can determine I/C ratio for him at last visit. is doing well with his diet. He stopped his basalglar. He is willing to start again at lower dose and titrate back up. He will start at 10 units and increase by 2-3 units every 3 days if he is waking with higher BG than he went to bed with. I have also decrease his correction to 1-50 so that he is not going low after correction. I have given he an alternative correction scale to use if he needs less correction when he begins with higer dose of basaglar and finds his current correction may be too strong. On statin On asa Anxiety and depression (Chronic) GERD (gastroesophageal reflux disease) (Chronic) Chewing tobacco nicotine dependence (Chronic) History of acute myocardial infarction (Chronic) - Past Surgical History Surgical History: cholecystectomy, - - AVF rt forearm 08/08/18 - Social History Smoking Status: Never smoker - Family History Maternal Family History: Family History (Last Reviewed 08/25/18 @ 11:25 by Minerva Sexton PA-C) Mother Heart disease Hypertension Father Cancer Brother Cancer Diabetes Sister Diabetes History Items: Heart Disease Paternal Family History: Family History (Last Reviewed 08/25/18 @ 11:25 by Minerva Sexton PA-C) Mother Heart disease Hypertension Father Cancer Brother Cancer Diabetes Sister Diabetes History Items: Cancer - Father w/ Colon CA. Sibling Family History: Family History (Last Reviewed 08/25/18 @ 11:25 by Minerva Sexton PA-C) Mother Heart disease Hypertension Father Cancer Brother Cancer Diabetes Sister Diabetes History Items: Diabetes - sister, brother who passed, no kidney disease Review of Systems Constitutional: Denies: Anorexia, Chills, Fever, Weakness, Fatigue Cardiovascular: Reports: Edema. Denies: Chest Pain Respiratory: Reports: Cough, Hemoptysis, Shortness of breath upon exertion, Sputum production, - Gastrointestinal: Denies: Abdominal Pain, Nausea, Vomiting Genitourinary: Reports: - - good urine output. Denies: Dysuria Musculoskeletal: Reports: - - leg swelling Skin: Denies: Rash Neurological: Denies: Balance problems Psychiatric: Denies: Anxiety, Depression Hematologic/ Lymphatic: Reports: Anemia - Physical Exam General: Alert, Oriented x3, Cooperative, No apparent distress HEENT: PERRLA, EOMI Oral: Moist Mucosa Neck: Supple Lungs: Clear to auscultation, Diminished Cardiovascular: Regular rate, No rub noted Abdomen: Bowel Sounds Present, Soft, Non Tender, Non-Distended, Obese Extremities: Edema - 1+ pitting BLE, - - AVF rt forearm +thrill/bruit Skin: No rashes Lymphatic: No Cervical, Supraclavicular, or Inguinal Adenopathy Neurological: Cranial nerves II-XII grossly intact, - - no tremor Psych/Mental Status: Normal Affect, Appropriate, Alert and oriented to time, place, person, mood and affect Vital Signs Temp Pulse Resp BP Pulse Ox 98.6 F 75 16 150/82 H 94 08/27/18 03:17 08/27/18 06:54 08/27/18 03:17 08/27/18 06:52 08/27/18 07:40 Oxygen Flow Rate (L/min) 2 Oxygen Delivery Method Nasal Cannula Weight: 107 kg Body Mass Index (BMI) 36.3 Finger Stick Blood Glucose 149 Intake and Output for Last 24 Hours 08/25/18 08/26/18 08/27/18 23:59 23:59 23:59 Intake Total 240 / 240 Output Total 600 / 600 0 / 0 Balance -360 / -360 0 / 0 Laboratory Tests Past 24 Hrs 08/26/18 08/26/18 08/26/18 16:50 16:50 16:50 WBC 7.7 RBC 3.28 L Hgb 9.8 L Hct 29.3 L MCV 89.3 MCH 29.9 MCHC 33.4 RDW 13.5 RDW Differential 44.3 H Plt Count 209 MPV 9.4 Immature Gran % (Auto) 0.000 Neut % (Auto) 75.0 H Lymph % (Auto) 16.5 L [place] % (Auto) 6.9 Eos % (Auto) 1.3 Baso % (Auto) 0.3 Absolute Neuts (auto) 5.7 Absolute Lymphs (auto) 1.26 Total Counted Not Reportable PT Cancelled INR Cancelled APTT Cancelled Sodium 143 Potassium 5.1 Chloride 112 H Carbon Dioxide 21.0 Anion Gap 10 BUN 78 H Creatinine 6.49 H Estim Creat Clear Calc 13.32 Est GFR (MDRD) Af Amer 12 L Est GFR (MDRD) Non-Af 10 L BUN/Creatinine Ratio 12.0 Glucose 105 Calcium 8.1 L Phosphorus B-Natriuretic Peptide Albumin 08/26/18 08/26/18 08/27/18 16:50 17:50 06:40 WBC 7.5 RBC 2.89 L Hgb 8.5 L Hct 26.8 L MCV 92.7 MCH 29.4 MCHC 31.7 L RDW 13.1 RDW Differential 42.9 Plt Count 210 MPV 10.0 Immature Gran % (Auto) 0.100 Neut % (Auto) 72.9 H Lymph % (Auto) 17.2 L [place] % (Auto) 7.8 Eos % (Auto) 1.6 Baso % (Auto) 0.4 Absolute Neuts (auto) 5.5 Absolute Lymphs (auto) 1.29 Total Counted Not Reportable PT 13.1 INR 1.0 APTT 32.6 Sodium Potassium Chloride Carbon Dioxide Anion Gap BUN Creatinine Estim Creat Clear Calc Est GFR (MDRD) Af Amer Est GFR (MDRD) Non-Af BUN/Creatinine Ratio Glucose Calcium Phosphorus B-Natriuretic Peptide 810.1 H Albumin 08/27/18 06:40 WBC RBC Hgb Hct MCV MCH MCHC RDW RDW Differential Plt Count MPV Immature Gran % (Auto) Neut % (Auto) Lymph % (Auto) [place] % (Auto) Eos % (Auto) Baso % (Auto) Absolute Neuts (auto) Absolute Lymphs (auto) Total Counted PT INR APTT Sodium 146 H Potassium 5.2 H Chloride 114 H Carbon Dioxide 21.0 Anion Gap BUN 80 H Creatinine 6.61 H Estim Creat Clear Calc 13.08 Est GFR (MDRD) Af Amer 12 L Est GFR (MDRD) Non-Af 10 L BUN/Creatinine Ratio 12.1 Glucose 106 Calcium 8.0 L Phosphorus 6.3 H B-Natriuretic Peptide Albumin 2.1 L POC Glucose 08/27/18 08/26/18 07:00 22:11 POC Glucose 111 H 177 H Clinical Impression(s) from Imaging Studies Chest X-Ray 08/26/18 16:32 IMPRESSION: 1. Small left pleural effusion. 2. Bibasilar pneumonia. Electronically Signed: Anita Cerna MD at 17:59 EST Tel , Service support , Assessment/Plan All Active Problems (Last Reviewed 08/25/18 @ 11:25 by Minerva Sexton PA-C) Anasarca associated with disorder of kidney (Acute) Retention, urine (Acute) Acute on chronic diastolic CHF (congestive heart failure) (Acute) Acute hypoxemic respiratory failure (Ruled-out) Hypoglycemia (Acute) Acute respiratory failure with hypoxia (Ruled-out) ILDA (acute kidney injury) (Ruled-out) Right leg pain (Resolved) Chronic ulcer of 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 (Resolved) Cellulitis and abscess of right leg (Resolved) Hypertensive emergency (Resolved) Hypokalemia (Resolved) 1. CKD Stage 5 to ESRD. Creatinine rising on diuretics, persistent edema with CHF. Will initiate dialysis today after tunneled catheter placement. AVF rt forearm 08/08 not ready for use. 2. Anemia check iron studies, start epo, iv iron on dialysis 3. DM2 primary mgmt 4. HTN stable BP 5. CHF diuresing on lasix 6. Edema continue lasix 7. Hemoptysis resolved. Check sputum c/s for PNA 8. SHPT continue calcitriol
[2018-08-27] MEDS: Furosemide 100 MG/10 ML Vial 60 MG IV ×2 (09:17→21:36)
[2018-08-27] MEDS: 0.9% NaCl Peripheral Flush Adult/Peds IV ×3 (09:17→14:48)
[2018-08-27 11:31] LABS: Bedside Glucose 96 mg/dL (70-110)
--- NOTE | 2018-08-27 14:43 | PN_ITS ---
<Roque Arevalo - Last Filed: 08/27/18 14:36> Subjective: Pt denies worsening of SOB, cough, LE edema, abdominal distention. He is resting comfortably in bed NAD. He is agreeable to surgery and dialysis tonight. No fever or chills. - Physical Exam General: Alert, Oriented x3, Cooperative HEENT: Atraumatic, PERRLA, EOMI, Normocephalic Neck: Supple, No JVD, Negative Carotid Bruits Lungs: Clear to auscultation, Normal air movement Cardiovascular: Regular rate, No murmurs Abdomen: Bowel Sounds Present, Soft, Non Tender Extremities: No edema, Capillary Refill Less than 3 Seconds Skin: No rashes, No breakdown Musculoskeletal: No Tenderness to Palpation of Joints or Extremities Neurological: Cranial nerves II-XII grossly intact Psych/Mental Status: Normal Affect, Appropriate Vital Signs Temp Pulse Resp BP Pulse Ox 98.6 F 75 18 155/67 H 97 08/27/18 09:12 08/27/18 10:58 08/27/18 09:12 08/27/18 09:12 08/27/18 09:12 Oxygen Flow Rate (L/min) 2 Oxygen Delivery Method Nasal Cannula Weight: 235 lb 14.314 oz Body Mass Index (BMI) 36.3 Finger Stick Blood Glucose 149 Intake and Output for Last 24 Hours 08/25/18 08/26/18 08/27/18 23:59 23:59 23:59 Intake Total 240 / 240 Output Total 600 / 600 1200 / 1200 Balance -360 / -360 -1200 / -1200 Laboratory Tests Past 24 Hrs 08/26/18 08/26/18 08/26/18 16:50 16:50 16:50 WBC 7.7 RBC 3.28 L Hgb 9.8 L Hct 29.3 L MCV 89.3 MCH 29.9 MCHC 33.4 RDW 13.5 RDW Differential 44.3 H Plt Count 209 MPV 9.4 Immature Gran % (Auto) 0.000 Neut % (Auto) 75.0 H Lymph % (Auto) 16.5 L [place] % (Auto) 6.9 Eos % (Auto) 1.3 Baso % (Auto) 0.3 Absolute Neuts (auto) 5.7 Absolute Lymphs (auto) 1.26 Total Counted Not Reportable PT Cancelled INR Cancelled APTT Cancelled Sodium 143 Potassium 5.1 Chloride 112 H Carbon Dioxide 21.0 Anion Gap 10 BUN 78 H Creatinine 6.49 H Estim Creat Clear Calc 13.32 Est GFR (MDRD) Af Amer 12 L Est GFR (MDRD) Non-Af 10 L BUN/Creatinine Ratio 12.0 Glucose 105 Calcium 8.1 L Phosphorus B-Natriuretic Peptide Albumin Hep Bs Antigen Hep Bs Antibody Hepatitis C Ab (EIA) 08/26/18 08/26/18 08/27/18 16:50 17:50 06:40 WBC 7.5 RBC 2.89 L Hgb 8.5 L Hct 26.8 L MCV 92.7 MCH 29.4 MCHC 31.7 L RDW 13.1 RDW Differential 42.9 Plt Count 210 MPV 10.0 Immature Gran % (Auto) 0.100 Neut % (Auto) 72.9 H Lymph % (Auto) 17.2 L [place] % (Auto) 7.8 Eos % (Auto) 1.6 Baso % (Auto) 0.4 Absolute Neuts (auto) 5.5 Absolute Lymphs (auto) 1.29 Total Counted Not Reportable PT 13.1 INR 1.0 APTT 32.6 Sodium Potassium Chloride Carbon Dioxide Anion Gap BUN Creatinine Estim Creat Clear Calc Est GFR (MDRD) Af Amer Est GFR (MDRD) Non-Af BUN/Creatinine Ratio Glucose Calcium Phosphorus B-Natriuretic Peptide 810.1 H Albumin Hep Bs Antigen Hep Bs Antibody Hepatitis C Ab (EIA) 08/27/18 08/27/18 06:40 13:09 WBC RBC Hgb Hct MCV MCH MCHC RDW RDW Differential Plt Count MPV Immature Gran % (Auto) Neut % (Auto) Lymph % (Auto) [place] % (Auto) Eos % (Auto) Baso % (Auto) Absolute Neuts (auto) Absolute Lymphs (auto) Total Counted PT INR APTT Sodium 146 H Potassium 5.2 H Chloride 114 H Carbon Dioxide 21.0 Anion Gap BUN 80 H Creatinine 6.61 H Estim Creat Clear Calc 13.08 Est GFR (MDRD) Af Amer 12 L Est GFR (MDRD) Non-Af 10 L BUN/Creatinine Ratio 12.1 Glucose 106 Calcium 8.0 L Phosphorus 6.3 H B-Natriuretic Peptide Albumin 2.1 L Hep Bs Antigen Pending Hep Bs Antibody Pending Hepatitis C Ab (EIA) Pending POC Glucose 08/27/18 08/27/18 08/26/18 11:25 07:00 22:11 POC Glucose 96 111 H 177 H Medical Necessity - Tobacco Use Smoking Status: Never smoker Assessment/Plan All Active Problems (Last Reviewed 08/25/18 @ 11:25 by Minerva Sexton PA-C) Anasarca associated with disorder of kidney (Acute) Retention, urine (Acute) Acute on chronic diastolic CHF (congestive heart failure) (Acute) Acute hypoxemic respiratory failure (Ruled-out) Hypoglycemia (Acute) Acute respiratory failure with hypoxia (Ruled-out) ILDA (acute kidney injury) (Ruled-out) Right leg pain (Resolved) Chronic ulcer of 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 (Resolved) Cellulitis and abscess of right leg (Resolved) Hypertensive emergency (Resolved) Hypokalemia (Resolved) 1. CKD V - dialysis cath placement today. Dialysis afterwards. Drs. Montiel and Sylvester following. Hep ab's ordered. K is slightly high. Calcium is low. Continue calcium acetate. 2. Hemoptysis - none further. Mild decline in hgb. 3. Anemia of chronic disease - trend. 4. T2 DM - SSI 5. Chronic diastolic CHF - does not appear to be acute exacerbation - continue current meds, O2, aerosols prn. 6. Anx/Depression - wellbutrin. 7. HLD - statin 8. HTN - mildly elevated - norvasc, atenolol, hydralazine DVT ppx: SCDs DC planning: will need set up with outpatient dialysis prior to DC. This patient was seen by Roque Arevalo PA-C under the supervision of Doctor Ramon. <Sadiq Navarro - Last Filed: 08/27/18 15:56> Subjective: Seen and examined. Patient has chronic anasarca secondary to CKD stage V. Patient was scheduled for permacath tomorrow but was admitted yesterday on Saturday for shortness of breath, cough and generalized swelling. Denies shortness of breath in the morning. - Physical Exam General: Alert, Oriented x3, Cooperative HEENT: Atraumatic, PERRLA, EOMI, Normocephalic Neck: Supple, No JVD, Negative Carotid Bruits Lungs: Clear to auscultation, No rhonchi, No wheeze, No rales, Diminished Cardiovascular: Regular rate, Normal S1, Normal S2, No murmurs Abdomen: Bowel Sounds Present, Soft, Non Tender, Non-Distended Extremities: Capillary Refill Less than 3 Seconds, Edema - Leg and periorbital edema Skin: No rashes, No breakdown Musculoskeletal: No Tenderness to Palpation of Joints or Extremities, Arthritic Changes Neurological: Cranial nerves II-XII grossly intact Psych/Mental Status: Normal Affect, Appropriate Vital Signs Temp Pulse Resp BP Pulse Ox 97.7 F L 76 18 155/83 H 95 08/27/18 14:43 08/27/18 14:43 08/27/18 14:43 08/27/18 14:43 08/27/18 14:43 Oxygen Flow Rate (L/min) 2 Oxygen Delivery Method Nasal Cannula Weight: 235 lb 14.314 oz Body Mass Index (BMI) 35.9 Finger Stick Blood Glucose 149 Intake and Output for Last 24 Hours 08/25/18 08/26/18 08/27/18 23:59 23:59 23:59 Intake Total 240 / 240 Output Total 600 / 600 1200 / 1200 Balance -360 / -360 -1200 / -1200 Laboratory Tests Past 24 Hrs 08/26/18 08/26/18 08/26/18 16:50 16:50 16:50 WBC 7.7 RBC 3.28 L Hgb 9.8 L Hct 29.3 L MCV 89.3 MCH 29.9 MCHC 33.4 RDW 13.5 RDW Differential 44.3 H Plt Count 209 MPV 9.4 Immature Gran % (Auto) 0.000 Neut % (Auto) 75.0 H Lymph % (Auto) 16.5 L [place] % (Auto) 6.9 Eos % (Auto) 1.3 Baso % (Auto) 0.3 Absolute Neuts (auto) 5.7 Absolute Lymphs (auto) 1.26 Total Counted Not Reportable PT Cancelled INR Cancelled APTT Cancelled Sodium 143 Potassium 5.1 Chloride 112 H Carbon Dioxide 21.0 Anion Gap 10 BUN 78 H Creatinine 6.49 H Estim Creat Clear Calc 13.32 Est GFR (MDRD) Af Amer 12 L Est GFR (MDRD) Non-Af 10 L BUN/Creatinine Ratio 12.0 Glucose 105 Calcium 8.1 L Phosphorus B-Natriuretic Peptide Albumin Hep Bs Antigen Hep Bs Antibody Hepatitis C Ab (EIA) 08/26/18 08/26/18 08/27/18 16:50 17:50 06:40 WBC 7.5 RBC 2.89 L Hgb 8.5 L Hct 26.8 L MCV 92.7 MCH 29.4 MCHC 31.7 L RDW 13.1 RDW Differential 42.9 Plt Count 210 MPV 10.0 Immature Gran % (Auto) 0.100 Neut % (Auto) 72.9 H Lymph % (Auto) 17.2 L [place] % (Auto) 7.8 Eos % (Auto) 1.6 Baso % (Auto) 0.4 Absolute Neuts (auto) 5.5 Absolute Lymphs (auto) 1.29 Total Counted Not Reportable PT 13.1 INR 1.0 APTT 32.6 Sodium Potassium Chloride Carbon Dioxide Anion Gap BUN Creatinine Estim Creat Clear Calc Est GFR (MDRD) Af Amer Est GFR (MDRD) Non-Af BUN/Creatinine Ratio Glucose Calcium Phosphorus B-Natriuretic Peptide 810.1 H Albumin Hep Bs Antigen Hep Bs Antibody Hepatitis C Ab (EIA) 08/27/18 08/27/18 06:40 13:09 WBC RBC Hgb Hct MCV MCH MCHC RDW RDW Differential Plt Count MPV Immature Gran % (Auto) Neut % (Auto) Lymph % (Auto) [place] % (Auto) Eos % (Auto) Baso % (Auto) Absolute Neuts (auto) Absolute Lymphs (auto) Total Counted PT INR APTT Sodium 146 H Potassium 5.2 H Chloride 114 H Carbon Dioxide 21.0 Anion Gap BUN 80 H Creatinine 6.61 H Estim Creat Clear Calc 13.08 Est GFR (MDRD) Af Amer 12 L Est GFR (MDRD) Non-Af 10 L BUN/Creatinine Ratio 12.1 Glucose 106 Calcium 8.0 L Phosphorus 6.3 H B-Natriuretic Peptide Albumin 2.1 L Hep Bs Antigen Pending Hep Bs Antibody Pending Hepatitis C Ab (EIA) Pending POC Glucose 08/27/18 08/27/18 08/27/18 14:40 11:25 07:00 POC Glucose 93 96 111 H 08/26/18 22:11 POC Glucose 177 H Assessment/Plan This patient was seen in conjunction with Roque ROCHA. I have independently interviewed and examined the patient and reviewed pertinent history, examination findings, laboratory and plan of management. I have reviewed the note and agree with the documented findings with the few additional points. In brief, patient is admitted for generalized swelling and anasarca secondary to CKD stage V. Patient has chronic diastolic heart failure. Scheduled for dialysis tunnel catheter placement today and then hemodialysis. Dr. Montiel and Dr. huertas has been consulted. Patient status of admission changed to inpatient. I have discussed my assessment with Roque ROCHA and orders have been reviewed. Code Visit Inpatient E&M: 04036 Subs Hosp L2
[2018-08-27 14:55] LABS: Bedside Glucose 93 mg/dL (70-110)
[2018-08-27] MEDS: Atenolol 100 MG Tablet PO ×2 (15:31→15:36)
[2018-08-27] MEDS: amLODIPine 5 MG Tablet PO ×2 (15:33→18:43)
--- NOTE | 2018-08-27 16:01 | CHAPLAIN ---
patient was occupied at time of attempted visit
[2018-08-27] MEDS: Cefazolin 2 GM in 0.9% Normal Saline 100 ML IV (16:28)
--- NOTE | 2018-08-27 16:41 | CASEMGMT ---
Addendum entered by Kathy Castellano 08/27/18 16:54: This assessment was completed @ 1440. Original Note: ANDER GUERRA Re-admission note and assessment. Pt admitted to PCU 08/21 w/anasarca and renal failure. CKD Stage V. Discharged home 08/25 with plans to get out-pt tunneled dialysis catheter on 08/28 and to F/U with PCP and Dr Montiel. Pt returned to ER 08/27 w/ c/o SOB and hemoptysis. Admitted with Fluid overload from ESRD. ANDER GUERRA to room to talk with pt. Introduced self and role at [facility]. *Pt states he was given AD info last admission and is interested in talking with SW at this time for completion of paperwork. SW referral made w/ADDY Tate, for AD and new dialysis. *Discussed HHC with pt and he denies the need for HHC upon discharge. *Pt states he does not drive and that his significant other, Ying provides transportation. Pt stated is interested in info on [facility] Van transportation services. Given info sheet w/hours and phone number. *Dr Montiel informed ANDER GUERRA that she is getting Dialysis set up @ [facility]. Pt is aware and is agreeable to having Dialysis at [facility]. CM to send referral once initial dialysis is completed. Pt wishes to return home and states has no concerns with going home at time of discharge. CM to follow for any further discharge planning/needs. Pt voices no further concerns/needs at this time. Advised pt to ask for CM if any further questions/concerns/needs arise. Voices understanding. Plan: Home Apoorva BERNARDO RN, CM
[2018-08-27] MEDS: Bupivacaine Mpf 0.5% 30 ML VIAL (16:47)
[2018-08-27] MEDS: Heparin 10,000 UNITS/10 ML Vial 10000 UNITS (16:47)
--- NOTE | 2018-08-27 16:52 | PCM.OPRPT ---
Problem List (1) Chronic renal failure, stage 5 Status: Chronic Report of Operation Date of Procedure: 08/27/18 Pre-Operative Diagnosis: Acute and chronic stage V renal failure Post-Operative Diagnosis: Same Surgery/Procedure Performed:: Right internal jugular tunneled pre-curved 19 cm palindrome catheter Description of Surgical Findings:: Timeout and informed consent was obtained. 47 old gent was taken the operating placement table underwent monitored anesthesia care. Ancef 2 g given intravenous preoperatively. The right neck and chest were sterilely prepped and draped. Under ultrasound guidance 1% lidocaine mixed 50-50 with 0.5% Marcaine was used as a local anesthetic. A total of 18 cc was used. Under ultrasound guidance local was instilled. Micropuncture needle inserted in the right internal jugular vein followed by salvage wire. Then the wire was upgraded to no 3 5 J-wire. Local was instilled down upon the chest wall. The tubing was tunneled from the chest to the neck site. Fluoroscopy demonstrated good positioning of the J-wire. Serial dilatation was performed. The sheath dilator unit was inserted. The dilator and wire removed. The catheter was advanced through the sheath. The sheath was split. The catheter was nicely positioned at the SVC atrial junction with a good curvilinear position. It aspirated easily. It was flushed with saline and then 2 cc per channel heparinized saline. The counterincision was closed with interrupted 5-0 Vicryl subdermal stitch. The catheter was secured to skin with interrupted 3-0 nylon. Silver impregnated dressing was applied. Telfa OpSite dressing was applied to the neck. Sponge and instrument and needle counts were reported to the surgeon to be correct. Blood loss was minimal no apparent complication he was taken to the recovery area in satisfactory condition stat portable chest x-ray is pending. Satish Phan M.D., F.A.C.S. Type of Anesthesia:: Local MAC Anesthesiologist: Armani Artis
--- NOTE | 2018-08-27 17:10 | RAD_ITS ---
STUDY: X-RAY CHEST REASON FOR EXAM: Male, 47 years old. Line placement TECHNIQUE: Single frontal view COMPARISON: August 26, 2018 FINDINGS: Right-sided dual-lumen venous catheter with tip in the distal SVC. The lungs are not fully expanded. Bibasal infiltrates and mild left pleural effusion. No significant interval changes. Possible developing left upper lobe infiltrate since the previous study. Cardiomegaly. Normal mediastinum and reena. Normal visualized pulmonary arteries. Normal visualized aortic arch and descending thoracic aorta. Normal visualized thoracic spine. Normal visualized ribs, clavicles, and shoulders. There is no demonstrated abnormality of the visualized soft tissue structures of the upper abdomen. RAD/Chest 1 View (Portable) IMPRESSION: Cardiomegaly. Bibasilar infiltrates and left effusion appear to be stable. Possible new left upper lobe infiltrate. Electronically Signed: Marcio Thompson DO at 20:02 EST Tel [phone], Service support ,
[2018-08-27 17:25] LABS: Bedside Glucose 83 mg/dL (70-110)
[2018-08-27] MEDS: Heparin 10,000 UNITS/10 ML Vial IV (18:40)
[2018-08-27] MEDS: Gabapentin 300 MG Capsule PO (18:44)
--- NOTE | 2018-08-27 21:16 | DIALYSIS ---
hemodialysis x 2.5 hrs completed. first dialysis tx. Access via right chest tunnelled HD cath. UF 2000ml. Pt Sol Well. See HD flowsheet on chart.
[2018-08-27] MEDS: Atorvastatin Calcium 20 MG Tablet PO (21:36)
[2018-08-27 21:40] LABS: Bedside Glucose 91 mg/dL (70-110)
[2018-08-27] MEDS: Acetaminophen 500 MG Tablet 1000 MG PO (21:47)
[2018-08-28] VITALS (15 sets, daily range): BP systolic 133–195; BP diastolic 71–99; PULSE 68–79; RESP 16–20; TEMP 36.5–37.1; O2SAT 84–95
[2018-08-28 05:36] LABS: Absolute Lymphocyte Count 1.09 X10^3/ul (0.83-4.51); Absolute Neutrophil Count 4.2 X10^3/uL (2.0-7.7); Basophil# 0.03 X10^3/uL; Basophil% 0.5 % (0-1); Eosinophil# 0.09 X10^3/uL; Eosinophils% 1.5 % (0-5); Hematocrit 29.5 % (40-54); Hemoglobin 9.7 g/dl (13.0-16.5); Lymphocyte # 1.09 X10^3/ul (4.0); Lymphocyte % 18.2 % (19-41); Mean Corp Hgb Conc 32.9 g/gl (32-36); Mean Corpuscular Hgb 29.8 pg (27.0-32.0); Mean Corpuscular Volume 90.8 fL (80-94); Mean Platelet Vol. 10.2 fl (6.2-12.0); Monocyte# 0.58 X10^3/uL; Monocyte% 9.7 % (0-10); Neutrophil # 4.19 X10^3/uL (2.7-7.7); Neutrophil % 69.9 % (47-70); Platelet Count 201 K/mm3 (150-450); RBC Distribution Width CV 12.9 % (11.6-14.6); RBC Distribution Width SD 41.8 fl (35.1-43.9); Red Blood Count 3.25 M/mm3 (4.6-6.2)
[2018-08-28 05:40] LABS: POSITIVE COUNT NO; POSITIVE DIFFERENTIAL NO; POSITIVE MORPHOLOGY NO
[2018-08-28] MEDS: hydrALAZINE 25 MG Tablet PO ×3 (05:46→21:27)
[2018-08-28 05:54] LABS: Anion Gap 9 (5-15); BUN 58 mg/dL (7-18); BUN/Creat Ratio 11.2 RATIO (10-20); Calcium,Total 7.6 mg/dL (8.5-10.1); Chloride 107 mmol/L (98-107); Creatinine, Serum 5.17 mg/dL (0.70-1.30); EST Glomerular Filtration Rate 13 mL/min (>60); Est Glom Filt Rate - Afr Amer 15 mL/min (>60); Estimated Creatinine Clearance 16.72 ml/min; Glucose 95 mg/dL (74-106); Potassium 4.4 mmol/L (3.5-5.1); Sodium Level 142 mmol/L (136-145)
--- NOTE | 2018-08-28 06:02 | PCM.PN.BLA ---
Progress Note Apical aspect of dialysis catheter is off screen on CXR but was seen with fluoro intraop with good position Tip of catheter in good position and no PTX Catheter may be used [place]
[2018-08-28 07:01] LABS: Bedside Glucose 92 mg/dL (70-110)
--- NOTE | 2018-08-28 08:29 | PN_ITS ---
Progress Note Patient evaluated resting comfortably in bed. He notes discomfort at the chest catheter site. Patient dialyzed last night without any concerns. Catheter site is clean/dry and intact. No active bleeding noted. Our office will see the patient in follow-up after discharge. we will sign off at this time. Please re- consult if needed. Code Visit Inpatient E&M: 35633 Subs Hosp L1 - POST-OP/NO-CHARGE
--- NOTE | 2018-08-28 08:29 | CPS ---
pt placed back on 2 lpm. sat 90% on 2. nurse aware
--- NOTE | 2018-08-28 11:08 | PCM.PN.REN ---
Subjective: seen on dialysis #2 today. Tolerated 2L fluid removal last night. HD today. Complains of cough. No SOB. Edema improving - Physical Exam General: Alert, Oriented x3, Cooperative, No apparent distress Lungs: Clear to auscultation Cardiovascular: Regular rate Abdomen: Bowel Sounds Present, Soft, Obese Vital Signs Temp Pulse Resp BP Pulse Ox 97.7 F L 68 18 133/77 H 95 08/28/18 08:30 08/28/18 10:26 08/28/18 08:30 08/28/18 10:26 08/28/18 08:30 Oxygen Flow Rate (L/min) 2 Oxygen Delivery Method Nasal Cannula Weight: 103 kg Body Mass Index (BMI) 35.9 Finger Stick Blood Glucose 83 Intake and Output for Last 24 Hours 08/26/18 08/27/18 08/28/18 23:59 23:59 23:59 Intake Total 240 / 240 320 / 320 200 / 200 Output Total 600 / 600 3200 / 3200 500 / 500 Balance -360 / -360 -2880 / -2880 -300 / -300 Laboratory Tests Past 24 Hrs 08/27/18 08/28/18 08/28/18 13:09 05:00 05:00 WBC 6.0 RBC 3.25 L Hgb 9.7 L Hct 29.5 L MCV 90.8 MCH 29.8 MCHC 32.9 RDW 12.9 RDW Differential 41.8 Plt Count 201 MPV 10.2 Immature Gran % (Auto) 0.200 Neut % (Auto) 69.9 Lymph % (Auto) 18.2 L Cochran % (Auto) 9.7 Eos % (Auto) 1.5 Baso % (Auto) 0.5 Absolute Neuts (auto) 4.2 Absolute Lymphs (auto) 1.09 Total Counted Not Reportable Sodium 142 Potassium 4.4 Chloride 107 Carbon Dioxide 26.0 Anion Gap 9 BUN 58 H Creatinine 5.17 H Estim Creat Clear Calc 16.72 Est GFR (MDRD) Af Amer 15 L Est GFR (MDRD) Non-Af 13 L BUN/Creatinine Ratio 11.2 Glucose 95 Calcium 7.6 L Hep Bs Antigen Pending Hep Bs Antibody Pending Hepatitis C Ab (EIA) Pending POC Glucose 08/28/18 08/27/18 08/27/18 06:52 21:24 17:21 POC Glucose 92 91 83 08/27/18 08/27/18 14:40 11:25 POC Glucose 93 96 Medical Necessity - Tobacco Use Smoking Status: Never smoker Assessment/Plan All Active Problems (Last Reviewed 08/25/18 @ 11:25 by Minerva Sexton PA-C) Anasarca associated with disorder of kidney (Acute) Retention, urine (Acute) Acute on chronic diastolic CHF (congestive heart failure) (Acute) Acute hypoxemic respiratory failure (Ruled-out) Hypoglycemia (Acute) Acute respiratory failure with hypoxia (Ruled-out) ILDA (acute kidney injury) (Ruled-out) Right leg pain (Resolved) Chronic ulcer of 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 (Resolved) Cellulitis and abscess of right leg (Resolved) Hypertensive emergency (Resolved) Hypokalemia (Resolved) 1. ESRD HD #2 today. Next treatment Saturday. DC to home after outpt dialysis arranged and hep studies back. 2. Anemia check iron studies, start epo, iv iron on dialysis 3. DM2 primary mgmt 4. HTN stable BP 5. CHF diuresing on lasix, UF on dialysis 6. Edema improved 7. Hemoptysis resolved. Check sputum c/s for PNA 8. SHPT continue calcitriol
--- NOTE | 2018-08-28 11:15 | DIALYSIS ---
Hemodialysis x 3hrs today. UF -2000mL removed, Pt tolerated tx well. Pt stable. Report to ANDER Dawkins
[2018-08-28 11:50] LABS: Bedside Glucose 81 mg/dL (70-110)
[2018-08-28] MEDS: 0.9% NaCl Peripheral Flush Adult/Peds IV ×2 (12:01→17:17)
[2018-08-28] MEDS: Calcium Acetate 667 MG Capsule PO ×2 (12:02→16:41)
[2018-08-28] MEDS: Furosemide 100 MG/10 ML Vial 60 MG IV ×2 (12:02→17:17)
[2018-08-28] MEDS: Aspirin 81 MG TAB.CHEW PO (12:02)
[2018-08-28] MEDS: buPROPion (XL) 300 MG TABLET.XL PO (12:02)
[2018-08-28] MEDS: Gabapentin 300 MG Capsule PO ×2 (12:02→16:41)
[2018-08-28] MEDS: Tamsulosin HCl 0.4 MG Capsule PO (12:03)
[2018-08-28] MEDS: amLODIPine 5 MG Tablet PO (12:03)
[2018-08-28] MEDS: Calcitriol 0.25 MCG Capsule 0.5 MCG PO (12:03)
--- NOTE | 2018-08-28 12:09 | PN_ITS ---
Subjective: Patient had hemodialysis yesterday after right sided permacath was placed. Patient is undergoing dialysis today. No shortness of breath. Denies chest pain. Outpatient dialysis needs to be set up. Vitals/I&O's: Vital Signs Temp Pulse Resp BP Pulse Ox 97.7 F L 73 18 133/77 H 95 08/28/18 08:30 08/28/18 11:10 08/28/18 08:30 08/28/18 10:26 08/28/18 08:30 Oxygen Flow Rate (L/min) 2 Oxygen Delivery Method Nasal Cannula Weight: 227 lb 1.218 oz Body Mass Index (BMI) 35.9 Finger Stick Blood Glucose 83 Intake and Output for Last 24 Hours 08/26/18 08/27/18 08/28/18 23:59 23:59 23:59 Intake Total 240 / 240 320 / 320 200 / 200 Output Total 600 / 600 3200 / 3200 500 / 500 Balance -360 / -360 -2880 / -2880 -300 / -300 General: Alert, Oriented x3, Cooperative HEENT: Atraumatic, PERRLA, EOMI, Normocephalic Neck: Supple, No JVD, Negative Carotid Bruits Lungs: No rhonchi, No wheeze, No rales, Diminished Cardiovascular: Regular rate, Normal S1, Normal S2, No murmurs Abdomen: Bowel Sounds Present, Soft, Non Tender Extremities: Capillary Refill Less than 3 Seconds, Edema Skin: No rashes, No breakdown Musculoskeletal: No Tenderness to Palpation of Joints or Extremities, Arthritic Changes Neurological: Cranial nerves II-XII grossly intact Psych/Mental Status: Normal Affect, Appropriate Laboratory Results 08/27/18 13:09: Hep Bs Antigen Pending, Hep Bs Antibody Pending, Hepatitis C Ab (EIA) Pending 08/27/18 14:40: POC Glucose 93 08/27/18 17:21: POC Glucose 83 08/27/18 21:24: POC Glucose 91 08/28/18 05:00: WBC 6.0, RBC 3.25 L, Hgb 9.7 L, Hct 29.5 L, MCV 90.8, MCH 29.8, MCHC 32.9, RDW 12.9, RDW Differential 41.8, Plt Count 201, MPV 10.2, Immature Gran % (Auto) 0.200, Neut % (Auto) 69.9, Lymph % (Auto) 18.2 L, Pick[place] % (Auto) 9.7, Eos % (Auto) 1.5, Baso % (Auto) 0.5, Absolute Neuts (auto) 4.2, Absolute Lymphs (auto) 1.09, Total Counted Not Reportable 08/28/18 05:00: Sodium 142, Potassium 4.4, Chloride 107, Carbon Dioxide 26.0, Anion Gap 9, BUN 58 H, Creatinine 5.17 H, Estim Creat Clear Calc 16.72, Est GFR (MDRD) Af Amer 15 L, Est GFR (MDRD) Non-Af 13 L, BUN/Creatinine Ratio 11.2, Glucose 95, Calcium 7.6 L 08/28/18 06:52: POC Glucose 92 08/28/18 11:44: POC Glucose 81 Current Medications Acetaminophen (Tylenol) 1,000 mg PO Q6H PRN PRN PRN Reason: PAIN Last Admin: 08/27/18 21:47 Dose: 1,000 mg Amlodipine Besylate (Norvasc) 5 mg PO DAILY [facility] Last Admin: 08/28/18 12:03 Dose: 5 mg Aspirin (Aspirin, Baby) 81 mg PO DAILY@0800 [facility] Last Admin: 08/28/18 12:02 Dose: 81 mg Atenolol (Tenormin (Beta Silvana)) 100 mg PO DAILY [facility] Last Admin: 08/27/18 15:36 Dose: 100 mg Atorvastatin Calcium (Lipitor) 20 mg PO QHS [facility] Last Admin: 08/27/18 21:36 Dose: 20 mg Bupropion HCl (Wellbutrin Xl) 300 mg PO DAILY [facility] Last Admin: 08/28/18 12:02 Dose: 300 mg Calcitriol (Rocaltrol) 0.5 mcg PO DAILY [facility] Last Admin: 08/28/18 12:03 Dose: 0.5 mcg Calcium Acetate (Phoslo Gel Cap) 667 mg PO TIDCM [facility] Last Admin: 08/28/18 12:02 Dose: 667 mg Furosemide (Lasix) 60 mg IV BID@1000,1800 [facility] Last Admin: 08/28/18 12:02 Dose: 60 mg Gabapentin (Neurontin) 300 mg PO TIDCM [facility] Last Admin: 08/28/18 12:02 Dose: 300 mg Hydralazine HCl (Apresoline) 25 mg PO TID [facility] Last Admin: 08/28/18 05:46 Dose: 25 mg Insulin Human Lispro (Humalog Kwikpen (Bkc)) 0 unit SC ACHS [facility]; Protocol Last Admin: 08/28/18 12:04 Dose: Not Given Magnesium Hydroxide (Milk Of Magnesia) 30 ml PO DAILY PRN PRN PRN Reason: Constipation Sodium Chloride () 5 - 15 ml IV UD PRN PRN Reason: SALINE FLUSH Last Admin: 08/28/18 12:01 Dose: 10 ml Tamsulosin HCl (Flomax) 0.4 mg PO DAILY [facility] Last Admin: 08/28/18 12:03 Dose: 0.4 mg Medical Necessity - Tobacco Use Smoking Status: Never smoker Assessment/Plan All Active Problems (Last Reviewed 08/25/18 @ 11:25 by Minerva Sexton PA-C) Anasarca associated with disorder of kidney (Acute) Retention, urine (Acute) Acute on chronic diastolic CHF (congestive heart failure) (Acute) Acute hypoxemic respiratory failure (Ruled-out) Hypoglycemia (Acute) Acute respiratory failure with hypoxia (Ruled-out) ILDA (acute kidney injury) (Ruled-out) Right leg pain (Resolved) Chronic ulcer of 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 (Resolved) Cellulitis and abscess of right leg (Resolved) Hypertensive emergency (Resolved) Hypokalemia (Resolved) This is a 47-year-old gentleman who was admitted for generalized swelling and anasarca secondary to CKD stage V. Patient has chronic diastolic heart failure. The patient had right sided permacath on 08/[address] Montiel and Dr. Satish Phan consult reviewed and appreciated. 1. CKD V secondary to diabetic nephropathy with nephrotic range proteinuria-on hemodialysis. Hyperkalemia resolved after dialysis. Mild hypocalcemia. On calcitriol and PhosLo. Art Gallery Director is following. 2. Hemoptysis - none further. Mild decline in hgb. Hemoglobin is stable. H&H improved from 8.5-9.7 at baseline. 3. Anemia of chronic disease - 4. T2 DM - SSI 5. Chronic diastolic CHF - does not appear to be acute exacerbation - continue current meds, O2, aerosols prn. 6. Anx/Depression - wellbutrin. 7. HLD - statin 8. HTN - mildly elevated - norvasc, atenolol, hydralazine DVT ppx: SCDs DC planning: will need set up with outpatient dialysis prior to DC. Laboratory Results 08/27/18 13:09: Hep Bs Antigen Negative, Hep Bs Antibody Non Reactive, Hepatitis C Ab (EIA) <0.1 08/27/18 17:21: POC Glucose 83 08/27/18 21:24: POC Glucose 91 08/28/18 05:00: WBC 6.0, RBC 3.25 L, Hgb 9.7 L, Hct 29.5 L, MCV 90.8, MCH 29.8, MCHC 32.9, RDW 12.9, RDW Differential 41.8, Plt Count 201, MPV 10.2, Immature Gran % (Auto) 0.200, Neut % (Auto) 69.9, Lymph % (Auto) 18.2 L, Pickens % (Auto) 9.7, Eos % (Auto) 1.5, Baso % (Auto) 0.5, Absolute Neuts (auto) 4.2, Absolute Lymphs (auto) 1.09, Total Counted Not Reportable 08/28/18 05:00: Sodium 142, Potassium 4.4, Chloride 107, Carbon Dioxide 26.0, Anion Gap 9, BUN 58 H, Creatinine 5.17 H, Estim Creat Clear Calc 16.72, Est GFR (MDRD) Af Amer 15 L, Est GFR (MDRD) Non-Af 13 L, BUN/Creatinine Ratio 11.2, Glucose 95, Calcium 7.6 L 08/28/18 06:52: POC Glucose 92 08/28/18 11:44: POC Glucose 81 Active Medications Acetaminophen (Tylenol) 1,000 mg PO Q6H PRN PRN PRN Reason: PAIN Last Admin: 08/27/18 21:47 Dose: 1,000 mg Amlodipine Besylate (Norvasc) 5 mg PO DAILY [facility] Last Admin: 08/28/18 12:03 Dose: 5 mg Aspirin (Aspirin, Baby) 81 mg PO DAILY@0800 [facility] Last Admin: 08/28/18 12:02 Dose: 81 mg Atenolol (Tenormin (Beta Silvana)) 100 mg PO DAILY [facility] Last Admin: 08/27/18 15:36 Dose: 100 mg Atorvastatin Calcium (Lipitor) 20 mg PO QHS [facility] Last Admin: 08/27/18 21:36 Dose: 20 mg Bupropion HCl (Wellbutrin Xl) 300 mg PO DAILY [facility] Last Admin: 08/28/18 12:02 Dose: 300 mg Calcitriol (Rocaltrol) 0.5 mcg PO DAILY [facility] Last Admin: 08/28/18 12:03 Dose: 0.5 mcg Calcium Acetate (Phoslo Gel Cap) 667 mg PO TIDCM [facility] Last Admin: 08/28/18 12:02 Dose: 667 mg Furosemide (Lasix) 60 mg IV BID@1000,1800 [facility] Last Admin: 08/28/18 12:02 Dose: 60 mg Gabapentin (Neurontin) 300 mg PO TIDCM [facility] Last Admin: 08/28/18 12:02 Dose: 300 mg Hydralazine HCl (Apresoline) 25 mg PO TID [facility] Last Admin: 08/28/18 15:08 Dose: 25 mg Insulin Human Lispro (Humalog Kwikpen (Bkc)) 0 unit SC [facility]; Protocol Last Admin: 08/28/18 12:04 Dose: Not Given Magnesium Hydroxide (Milk Of Magnesia) 30 ml PO DAILY PRN PRN PRN Reason: Constipation Sodium Chloride () 5 - 15 ml IV UD PRN PRN Reason: SALINE FLUSH Last Admin: 08/28/18 12:01 Dose: 10 ml Tamsulosin HCl (Flomax) 0.4 mg PO DAILY [facility] Last Admin: 08/28/18 12:03 Dose: 0.4 mg Code Visit Inpatient E&M: 86665 Subs Hosp L2
--- NOTE | 2018-08-28 13:26 | CASEMGMT ---
Referral faxed to [facility] at this time to set up outpt dialysis. Hep panel is still pending, will send when obtained. Scott WORTHINGTON CM
--- NOTE | 2018-08-28 14:11 | CHAPLAIN ---
Type of Pastoral Visit _x__ Initial Visit ___ Follow-up Visit ___ On-call Visit ___ General Patient Visit ___ Spiritual Assessment ___ Family Conference ___ Bereavement ___ Rapid Response ___ Code Blue ___ Other (describe below) Pastoral Care Referral From _x__ Patient ___ Family ___ Nurse ___ Physician ___ Car Seat Maker ___ Clerk Funeral Detail ___ Other (describe below) Sacrament/Intervention ___ Active listening ___ Anointing ___ Yazidism ___ Bereavement ___ Communion ___ Danica exploration ___ ___ Life review _x__ Prayer ___ Reconciliation ___ Sacrament of Sick _x__ Supportive presence ___ Wedding ___ Other (describe below) Pastoral Comments
[2018-08-28 15:14] LABS: HEPATITIS B SURFACE AG Negative (Negative); Hep B Surface Antibodies Non Reactive (.); Hep C Antibodies <0.1 s/co ratio (0.0-0.9)
[2018-08-28] MEDS: Insulin Lispro 100 UNIT/ML INSULN.PEN SC ×2 (16:40→21:27)
[2018-08-28 16:51] LABS: Bedside Glucose 186 mg/dL (70-110)
[2018-08-28] MEDS: Acetaminophen 500 MG Tablet 1000 MG PO (19:34)
[2018-08-28] MEDS: Atorvastatin Calcium 20 MG Tablet PO (21:28)
[2018-08-28 22:10] LABS: Bedside Glucose 180 mg/dL (70-110)
[2018-08-29] VITALS (12 sets, daily range): BP systolic 97–171; BP diastolic 57–89; PULSE 73–102; RESP 16–20; TEMP 36.6–37.1; O2SAT 93–95
[2018-08-29] MEDS: hydrALAZINE 25 MG Tablet PO ×2 (05:00→14:44)
[2018-08-29 07:18] LABS: Anion Gap 7 (5-15); BUN 41 mg/dL (7-18); BUN/Creat Ratio 9.2 RATIO (10-20); Calcium,Total 7.6 mg/dL (8.5-10.1); Chloride 106 mmol/L (98-107); Creatinine, Serum 4.47 mg/dL (0.70-1.30); EST Glomerular Filtration Rate 15 mL/min (>60); Est Glom Filt Rate - Afr Amer 18 mL/min (>60); Estimated Creatinine Clearance 19.34 ml/min; Glucose 130 mg/dL (74-106); Potassium 3.9 mmol/L (3.5-5.1); Sodium Level 140 mmol/L (136-145)
[2018-08-29 07:50] LABS: Bedside Glucose 116 mg/dL (70-110)
[2018-08-29 07:50] LABS: Bedside Glucose 127 mg/dL (70-110)
[2018-08-29 08:10] LABS: Iron 54 ug/dL (65-175); Iron Binding Capacity,Total 242 ug/dL (250-450); PERCENT IRON SATURATION 22.3 % (15.0-55.0)
--- NOTE | 2018-08-29 09:19 | CASEMGMT ---
Hep panel back and faxed to [facility] at this time. This RN CM also re-faxed initial referral as have not heard back from [facility]. This RN CM received message from Bhakti, SW grocery store manager, that pt's family member had called her with concerns about pt's transportation to and from dialysis center. This RN CM spoke with Antonella at [facility] and she states that they have a chair time for pt but have not received any other info at this time. This RN CM faxed her the referral as well for pt at this time. She states that their SW will be able to work with pt on getting transportation. This RN CM to room to speak with pt regarding same and he states that his girlfriend normally drives him but she works 7:30a-4p but states that she could drop him off at dialysis on her way to work and that he has a brother and some other friends that could help in picking him up. Advised pt that chair time is M, W, F at 0730 but that for the next two weeks, it will be S, W, F at 0730 due to the holidays. Per pt, his girlfriend does not work on Sundays, so she will be able to transport to and from on those two days. Call to [facility] admissions to verify referral received and that financials are in the process. Per Svitlana, 'It could take up to 24 hours to even assign the pt to a CM and then they would start financials.' Advised Svitlana that [facility] is ready for pt to start on Saturday, if financials can get run and she states that it will get done when they get it assigned and get to it. This RN CM spoke with Antonella at [facility] again and advised her of all, voices understanding. She states that they will try to expedite the financials from their end. This RN CM will call [facility] admissions back around noon to see if any progress has been made. Scott WORTHINGTON CM
--- NOTE | 2018-08-29 10:03 | PCM.PN.REN ---
Subjective: seen on dialysis, cough improved. STart iv iron on dialysis - Physical Exam General: Alert, Oriented x3, Cooperative, No apparent distress Lungs: Clear to auscultation Cardiovascular: Regular rate Extremities: Edema Psych/Mental Status: Alert and oriented to time, place, person, mood and affect Vital Signs Temp Pulse Resp BP Pulse Ox 97.9 F 75 18 151/79 H 93 08/29/18 03:05 08/29/18 05:00 08/29/18 03:05 08/29/18 05:00 08/29/18 08:01 Oxygen Flow Rate (L/min) 2 Oxygen Delivery Method Nasal Cannula Weight: 101.3 kg Body Mass Index (BMI) 35.9 Finger Stick Blood Glucose 83 Intake and Output for Last 24 Hours 08/27/18 08/28/18 08/29/18 23:59 23:59 23:59 Intake Total 320 / 320 1120 / 1120 100 / 100 Output Total 3200 / 3200 500 / 500 Balance -2880 / -2880 620 / 620 100 / 100 Laboratory Tests Past 24 Hrs 08/27/18 08/29/18 08/29/18 13:09 06:33 06:33 Sodium 140 Potassium 3.9 Chloride 106 Carbon Dioxide 27.0 Anion Gap 7 BUN 41 H Creatinine 4.47 H Estim Creat Clear Calc 19.34 Est GFR (MDRD) Af Amer 18 L Est GFR (MDRD) Non-Af 15 L BUN/Creatinine Ratio 9.2 L Glucose 130 H Calcium 7.6 L Iron 54 L TIBC 242 L Iron Saturation 22.3 Hep Bs Antigen Negative Hep Bs Antibody Non Reactive Hepatitis C Ab (EIA) <0.1 POC Glucose 08/29/18 08/29/18 08/28/18 07:00 06:59 21:20 POC Glucose 127 H 116 H 180 H 08/28/18 08/28/18 16:39 11:44 POC Glucose 186 H 81 Medical Necessity - Tobacco Use Smoking Status: Never smoker Assessment/Plan All Active Problems (Last Reviewed 08/25/18 @ 11:25 by Minerva Sexton PA-C) Anasarca associated with disorder of kidney (Acute) Retention, urine (Acute) Acute on chronic diastolic CHF (congestive heart failure) (Acute) Acute hypoxemic respiratory failure (Ruled-out) Hypoglycemia (Acute) Acute respiratory failure with hypoxia (Ruled-out) ILDA (acute kidney injury) (Ruled-out) Right leg pain (Resolved) Chronic ulcer of 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 (Resolved) Cellulitis and abscess of right leg (Resolved) Hypertensive emergency (Resolved) Hypokalemia (Resolved) 1. ESRD HD #3 today. . DC to home after dialysis . Start outpt dialysis on Saturday, hol schedule then MWF. 2. Anemia start iv iron on dialysis 3. DM2 primary mgmt 4. HTN stable BP 5. CHF diuresing on lasix, UF on dialysis 6. Edema improved 7. SHPT continue calcitriol
[2018-08-29] MEDS: Aspirin 81 MG TAB.CHEW PO (10:09)
[2018-08-29] MEDS: Calcium Acetate 667 MG Capsule PO ×2 (10:10→12:55)
[2018-08-29] MEDS: buPROPion (XL) 300 MG TABLET.XL PO (10:10)
[2018-08-29] MEDS: Gabapentin 300 MG Capsule PO ×2 (10:10→12:55)
[2018-08-29] MEDS: Calcitriol 0.25 MCG Capsule 0.5 MCG PO (10:10)
[2018-08-29] MEDS: Tamsulosin HCl 0.4 MG Capsule PO (10:10)
[2018-08-29] MEDS: Atenolol 100 MG Tablet PO (10:11)
--- NOTE | 2018-08-29 11:23 | CASEMGMT ---
This ANDER GUERRA received call from Sarah, admission coordinator at [facility], and she states that she is finalizing a few things and then will be faxing pt's schedule letter. This ANDER GUERRA received schedule letter and spoke with Antonella at [facility] to clarify that pt is good to go for Saturday and she verifies that at this time. Schedule letter to pt at this time with explanation and pt voices understanding. Copy of schedule letter with chart. Dr. Navarro aware that pt can be discharged at this time from CM standpoint. Scott WORTHINGTON CM
--- NOTE | 2018-08-29 11:30 | PCM.DC ---
You will use the following diet at home:: Calorie/Carbohydrate Controlled (specify 1200, 1400, etc) - 1800 ada DIET, Cardiac Your food should be the consistency of: Regular Discharge Activity: May Not Drive Call your doctor if you observe: Fever of 101 or Higher, Inability to have a bowel movement, Shortness of breath, Fainting spells, Swelling in the ankles, Chest pain Additional Instructions: Outpatient hemodialysis set up. Allergies/Adverse Reactions: Allergies No Known Allergies Allergy (Verified 08/26/18 15:55) Medications to take at Discharge Gabapentin [Neurontin] 300 mg PO TIDCM 07/15/13 Atorvastatin Calcium [Lipitor] 20 mg PO QHS 11/19/17 Atenolol [Tenormin (beta elizabeth)] 100 mg PO DAILY 11/28/17 tamsulosin 0.4 mg capsule 0.4 mg PO DAILY cap 01/20/18 insulin glargine (U-100) 100 unit/mL (3 mL) subcutaneous pen 4 - 6 unit SQ QHS ml 07/11/18 Calcitriol [Rocaltrol] 0.5 mcg PO DAILY 08/04/18 Aspirin [Aspirin, Baby] 81 mg PO DAILY@0800 08/21/18 Calcium Acetate [Phoslo Gel Cap] 667 mg PO TIDCM #90 capsule 08/25/18 Furosemide [Lasix] 80 mg PO BID@1000,1800 #30 tablet 08/25/18 Insulin Lispro [Humalog KwikPen] See Protocol SQ ACHS insuln.pen 08/25/18 Acetaminophen [Tylenol] 1,000 mg PO Q6H PRN PRN 08/26/18 Bupropion HCl [Bupropion Xl] 300 mg PO DAILY 08/26/18 Amlodipine [Norvasc] 10 mg PO DAILY #0 08/29/18 Hydralazine HCl 25 mg PO TID #90 tablet 08/29/18 The following prescriptions were given: Hydralazine HCl 25 mg PO TID #90 tablet Primary Care Physician: Zaida Mcneil MD [Primary Care Provider] - Please follow up with your Primary Care Physician in: IN 2 Weeks Test Results: Test results from this visit will be discussed in further detail at your follow-up appointment, if applicable. Please Follow Up With: Loida Montiel DO When: On hemodialysis
--- NOTE | 2018-08-29 11:35 | DCINST_ITS ---
You will use the following diet at home:: Calorie/Carbohydrate Controlled (specify 1200, 1400, etc) - 1800 ada DIET, Cardiac Your food should be the consistency of: Regular Discharge Activity: May Not Drive Call your doctor if you observe: Fever of 101 or Higher, Inability to have a bow el movement, Shortness of breath, Fainting spells, Swelling in the ankles, Chest pain Additional Instructions: Outpatient hemodialysis set up. Allergies/Adverse Reactions: Allergies No Known Allergies Allergy (Verified 08/26/18 15:55) Medications to take at Discharge Gabapentin [Neurontin] 300 mg PO TIDCM 07/15/13 Atorvastatin Calcium [Lipitor] 20 mg PO QHS 11/19/17 Atenolol [Tenormin (beta elizabeth)] 100 mg PO DAILY 11/28/17 tamsulosin 0.4 mg capsule 0.4 mg PO DAILY cap 01/20/18 insulin glargine (U-100) 100 unit/mL (3 mL) subcutaneous pen 4 - 6 unit SQ QHS ml 07/11/18 Calcitriol [Rocaltrol] 0.5 mcg PO DAILY 08/04/18 Aspirin [Aspirin, Baby] 81 mg PO DAILY@0800 08/21/18 Calcium Acetate [Phoslo Gel Cap] 667 mg PO TIDCM #90 capsule 08/25/18 Furosemide [Lasix] 80 mg PO BID@1000,1800 #30 tablet 08/25/18 Insulin Lispro [Humalog KwikPen] See Protocol SQ ACHS insuln.pen 08/25/18 Acetaminophen [Tylenol] 1,000 mg PO Q6H PRN PRN 08/26/18 Bupropion HCl [Bupropion Xl] 300 mg PO DAILY 08/26/18 Amlodipine [Norvasc] 10 mg PO DAILY #0 08/29/18 Hydralazine HCl 25 mg PO TID #90 tablet 08/29/18 The following prescriptions were given: Hydralazine HCl 25 mg PO TID #90 tablet Primary Care Physician: Zaida Mcneil MD [Primary Care Provider] - Please follow up with your Primary Care Physician in: IN 2 Weeks Test Results: Test results from this visit will be discussed in further detail at your follow- up appointment, if applicable. Please Follow Up With: Loida Montiel DO When: On hemodialysis
--- NOTE | 2018-08-29 11:36 | DS.PCM_ITS ---
Discharge Date and Diagnosis Date of Admission: 08/26/18 Date of Discharge: 08/29/18 - Secondary Discharge Diagnosis Chronic Problems (Last Reviewed 08/25/18 @ 11:25 by Minerva Sexton PA-C) Chronic renal failure, stage 5 (Chronic) Ectopic cardiac beats (Chronic) Anemia of chronic renal failure, stage 4 (severe) (Chronic) Chronic renal failure, stage 4 (severe) (Chronic) Is currently following with nephrology. Also following with urology. Is trying to follow his low protein diet and feels he is doing well with it. Obesity (BMI 30-39.9) (Chronic) Noncompliance (Chronic) Diabetic neuropathy (Chronic) Diabetic nephropathy (Chronic) Diabetic retinopathy (Chronic) HTN (hypertension) (Chronic) HLD (hyperlipidemia) (Chronic) Blind left eye (Chronic) Diabetes mellitus type II, uncontrolled (Chronic) Dx : 1992 Discussed with patient need to check BG in pairs, learn carb counting and then we can determine I/C ratio for him at last visit. is doing well with his diet. He stopped his basalglar. He is willing to start again at lower dose and titrate back up. He will start at 10 units and increase by 2-3 units every 3 days if he is waking with higher BG than he went to bed with. I have also decrease his correction to 1-50 so that he is not going low after correction. I have given he an alternative correction scale to use if he needs less correction when he begins with higer dose of basaglar and finds his current correction may be too strong. On statin On asa Anxiety and depression (Chronic) GERD (gastroesophageal reflux disease) (Chronic) Chewing tobacco nicotine dependence (Chronic) History of acute myocardial infarction (Chronic) Hospital Course and Treatment Operations: None Summary of Care Provided: T] This is a 47-year-old gentleman who was admitted for generalized swelling and anasarca secondary to CKD stage V. Patient has chronic diastolic heart failure. The patient had right sided permacath on 08/[address] Montiel and Dr. Satish Phan consult reviewed and appreciated. 1. CKD V secondary to diabetic nephropathy with nephrotic range proteinuria-on hemodialysis. Hyperkalemia resolved after dialysis. Mild hypocalcemia. On calcitriol and PhosLo. Patient was seen by Dr. Montiel. Outpatient dialysis was set up. Hepatitis panel as requirement for dialysis set up is negative. 2. Hemoptysis - none further. Mild decline in hgb. Hemoglobin is stable. H&H improved from 8.5-9.7 at baseline. 3. Anemia of chronic disease - 4. T2 DM - SSI 5. Chronic diastolic CHF - does not appear to be acute exacerbation - continue current meds, O2, aerosols prn. 6. Anx/Depression - wellbutrin. 7. HLD - statin 8. HTN - mildly elevated - norvasc, atenolol, hydralazine DVT ppx: SCDs Discharge medication reconciliation done. Discharge follow-up instructions completed. Discharge process discussed with the patient. Total time spent, exact 35 minutes on discharge meds reconciliation, examination, review of imaging and blood test and discussion with the patient on follow-up instructions. Laboratory Results 08/29/18 06:33: Sodium 140, Potassium 3.9, Chloride 106, Carbon Dioxide 27.0, An ion Gap 7, BUN 41 H, Creatinine 4.47 H, Estim Creat Clear Calc 19.34, Est GFR (MDRD) Af Amer 18 L, Est GFR (MDRD) Non-Af 15 L, BUN/Creatinine Ratio 9.2 L, Glucose 130 H, Calcium 7.6 L 08/29/18 06:33: Iron 54 L, TIBC 242 L, Iron Saturation 22.3 08/29/18 06:59: POC Glucose 116 H 08/29/18 07:00: POC Glucose 127 H 08/29/18 12:52: POC Glucose 148 H Subjective: Patient is feels much better after dialysis. Outpatient dialysis was set up. Blood pressure is controlled. Generally, runs in systolic 140s-150s. Objective: General: Alert, Oriented x3, Cooperative HEENT: Atraumatic, PERRLA, EOMI, Normocephalic Neck: Supple, No JVD, Negative Carotid Bruits Lungs: No rhonchi, No wheeze, No rales, air entry diminished bilaterally in the lung bases Cardiovascular: Regular rate, Normal S1, Normal S2, No murmurs Abdomen: Bowel Sounds Present, Soft, Non Tender Extremities: Capillary Refill Less than 3 Seconds, bilateral leg edema Skin: No rashes, No breakdown Musculoskeletal: No Tenderness to Palpation of Joints or Extremities, Arthritic Changes Neurological: Cranial nerves II-XII grossly intact Psych/Mental Status: Normal Affect, Appropriate - Physical Exam Vital Signs Temp Pulse Resp BP Pulse Ox 98.3 F 73 16 171/89 H 95 08/29/18 10:00 08/29/18 10:56 08/29/18 10:00 08/29/18 10:00 08/29/18 10:00 Oxygen Flow Rate (L/min) 2 Oxygen Delivery Method Nasal Cannula Weight: 223 lb 5.252 oz Body Mass Index (BMI) 35.9 Finger Stick Blood Glucose 83 Intake and Output for Last 24 Hours 08/27/18 08/28/18 08/29/18 23:59 23:59 23:59 Intake Total 320 / 320 1120 / 1120 100 / 100 Output Total 3200 / 3200 500 / 500 Balance -2880 / -2880 620 / 620 100 / 100 Laboratory Tests Past 24 Hrs 08/27/18 08/29/18 08/29/18 13:09 06:33 06:33 Sodium 140 Potassium 3.9 Chloride 106 Carbon Dioxide 27.0 Anion Gap 7 BUN 41 H Creatinine 4.47 H Estim Creat Clear Calc 19.34 Est GFR (MDRD) Af Amer 18 L Est GFR (MDRD) Non-Af 15 L BUN/Creatinine Ratio 9.2 L Glucose 130 H Calcium 7.6 L Iron 54 L TIBC 242 L Iron Saturation 22.3 Hep Bs Antigen Negative Hep Bs Antibody Non Reactive Hepatitis C Ab (EIA) <0.1 POC Glucose 08/29/18 08/29/18 08/28/18 07:00 06:59 21:20 POC Glucose 127 H 116 H 180 H 08/28/18 08/28/18 16:39 11:44 POC Glucose 186 H 81 Discharge Activity: May Not Drive Call your doctor if you observe: Fever of 101 or Higher, Inability to have a bowel movement, Shortness of breath, Fainting spells, Swelling in the ankles, Chest pain Home Medications: Medications to take at Discharge Gabapentin [Neurontin] 300 mg PO TIDCM 07/15/13 Atorvastatin Calcium [Lipitor] 20 mg PO QHS 11/19/17 Atenolol [Tenormin (beta elizabeth)] 100 mg PO DAILY 11/28/17 tamsulosin 0.4 mg capsule 0.4 mg PO DAILY cap 01/20/18 insulin glargine (U-100) 100 unit/mL (3 mL) subcutaneous pen 4 - 6 unit SQ QHS ml 07/11/18 Calcitriol [Rocaltrol] 0.5 mcg PO DAILY 08/04/18 Aspirin [Aspirin, Baby] 81 mg PO DAILY@0800 08/21/18 Calcium Acetate [Phoslo Gel Cap] 667 mg PO TIDCM #90 capsule 08/25/18 Furosemide [Lasix] 80 mg PO BID@1000,1800 #30 tablet 08/25/18 Insulin Lispro [Humalog KwikPen] See Protocol SQ ACHS insuln.pen 08/25/18 Acetaminophen [Tylenol] 1,000 mg PO Q6H PRN PRN 08/26/18 Bupropion HCl [Bupropion Xl] 300 mg PO DAILY 08/26/18 Amlodipine [Norvasc] 10 mg PO DAILY #0 08/29/18 Hydralazine HCl 25 mg PO TID #90 tablet 08/29/18 Following Prescrptions Were Given to Patient: Hydralazine HCl 25 mg PO TID #90 tablet Primary Care Physician: Zaida Mcneil MD [Primary Care Provider] - Please follow up with your Primary Care Physician in: IN 2 Weeks Please Follow Up With: Loida Montiel DO When: On hemodialysis Medical Necessity - Tobacco Use Smoking Status: Never smoker Meaningful Use Info Meaningful Use Diagnoses (Choose all that apply): None applicable Code Visit Inpatient E&M: 93521 Disch Hosp
[2018-08-29] MEDS: Furosemide 100 MG/10 ML Vial 60 MG IV (12:54)
[2018-08-29] MEDS: amLODIPine 5 MG Tablet PO (12:58)
[2018-08-29] MEDS: 0.9% NaCl Peripheral Flush Adult/Peds IV (12:58)
--- NOTE | 2018-08-29 13:03 | DIALYSIS ---
Hemodialysis x 3.5hrs today. UF -2000mL removed. Pt tolerated tx well Pt stable. Report to ANDER Rapp
[2018-08-29 13:11] LABS: Bedside Glucose 148 mg/dL (70-110)
--- NOTE | 2018-08-29 14:21 | CASEMGMT ---
Social Work Note Face to face with pt to complete advanced directives. Introduced self and role at [facility]. Upon entry into room pt is sitting upright in bed, eating lunch in no apparent distress. Pt presents with pleasant affect as evidenced by smiling and willingness to participate in assessment, and is appropriate with social etiquette. Educate pt to the difference between the HCPOA, and Living Will and the purpose of each document. Understanding expressed, and pt agreeable to complete documents this date. Assist with completion of both documents. Pt provided with originals and 1 copy for his designated HCPOA, and another copy was placed on his chart to be scanned into his medical records upon discharge. No further needs identified or expressed at this time. Total time spent: 35 minutes MUKESH Fowler, SARA
--- NOTE | 2018-08-29 14:24 | DIALYSIS ---
Venofer 100mg given via HD cath before closing port, communicated with patient RN
--- NOTE | 2018-08-29 14:50 | DIALYSIS ---
HDx3 hours and 35 minutes completed, pt tolerated tx well, stable post tx, accessed via left groin HD cath, net UF 1300mL, see dialysis flow record in pt chart
--- NOTE | 2018-09-01 12:59 | CASEMGMT ---
ANDER GUERRA Discharge Follow-up Phone Call: MALGORZATA: [place] Strata: 4 Call Date: 09/01/18 Discharge Date: 08/29/18 Time of Call: 1300 Duration: 3 min Admitting Diagnosis: Fluid overload from ESRD RN CHARLIE completed follow-up phone call after recent hospitalization. Patient had no questions or concerns regarding discharge instructions. Patient that he has been getting outpatient HD without any problems. Patient has follow-up appts scheduled.
--- OUTSIDE RECORDS SUMMARY | 2018-11-28 05:19 | XMS RPT_ITS ---
:1970 Author Organization OHIP Support Name Relationship Address Phone D Unavailable Unavailable Unavailable DEA, CHRISTINA Unavailable [address] + [place] [address] D Unavailable Unavailable Unavailable DEA, CHRISTINA Unavailable [address] + [place] [address] D Unavailable Unavailable Unavailable DEA, CHRISTINA Unavailable [address] + [place] [address] D Unavailable Unavailable Unavailable EDA, CHRISTINA Unavailable [address] + [place] [address] D Unavailable Unavailable Unavailable DEA, CHRISTINA Unavailable [address] + [place] [address] D Unavailable Unavailable Unavailable DEA, CHRISTINA Unavailable [address] + [place] [address] D Unavailable Unavailable Unavailable DEA, CHRISTINA Unavailable [address] + [place] [address] D Unavailable Unavailable Unavailable DEA, CHRISTINA Unavailable [address] + [place] [address] D Unavailable Unavailable Unavailable DEA, CHRISTINA Unavailable [address] + [place] [address] D Unavailable Unavailable Unavailable DEA, CHRISTINA Unavailable [address] + [place] [address] D Unavailable Unavailable Unavailable DEA, CHRISTINA Unavailable [address] + [place] [address] D Unavailable Unavailable Unavailable DEA, CHRISTINA Unavailable [address] + [place] [address] D Unavailable Unavailable Unavailable DEA, CHRISTINA Unavailable [address] + [place] [address] D Unavailable Unavailable Unavailable DEA, CHRISTINA Unavailable [address] + [place] [address] D Unavailable Unavailable Unavailable DEA, CHRISTINA Unavailable [address] + [place] [address] D Unavailable Unavailable Unavailable DEA, CHRISTINA Unavailable [address] + [place] [address] D Unavailable Unavailable Unavailable DEA, CHRISTINA Unavailable [address] + [place] [address] D Unavailable Unavailable Unavailable DEA, CHRISTINA Unavailable [address] + [place] [address] D Unavailable Unavailable Unavailable DEA, CHRISTINA Unavailable [address] + [place] [address] D Unavailable Unavailable Unavailable DEA, CHRISTINA Unavailable [address] + [place] [address] D Unavailable Unavailable Unavailable DEA, CHRISTINA Unavailable [address] + [place] [address] D Unavailable Unavailable Unavailable DEA, CHRISTINA Unavailable [address] + [place] [address] D Unavailable Unavailable Unavailable DEA, CHRISTINA Unavailable [address] + [place] [address] D Unavailable Unavailable Unavailable DEA, CHRISTINA Unavailable [address] + [place] [address] D Unavailable Unavailable Unavailable DEA, CHRISTINA Unavailable [address] + [place] [address] D Unavailable Unavailable Unavailable DEA, CHRISTINA Unavailable [address] + [place] [address] D Unavailable Unavailable Unavailable DEA, CHRISTINA Unavailable [address] + [place] [address] D Unavailable Unavailable Unavailable DEA, CHRISTINA Unavailable [address] + [place] [address] D Unavailable Unavailable Unavailable DEA, CHRISTINA Unavailable [address] + [place] [address] D Unavailable Unavailable Unavailable DEA, CHRISTINA Unavailable [address] + [place] [address] D Unavailable Unavailable Unavailable DEA, CHRISTINA Unavailable [address] + [place] [address] D Unavailable Unavailable Unavailable DEA, CHRISTINA Unavailable [address] + [place] [address] D Unavailable Unavailable Unavailable DEA, CHRISTINA Unavailable [address] + [place] [address] D Unavailable Unavailable Unavailable DEA, CHRISTINA Unavailable [address] + [place] [address] D Unavailable Unavailable Unavailable DEA, CHRISTINA Unavailable [address] + [place] [address] D Unavailable Unavailable Unavailable DEA, CHRISTINA Unavailable [address] + [place] [address] D Unavailable Unavailable Unavailable DEA, CHRISTINA Unavailable [address] + [place] [address] D Unavailable Unavailable Unavailable DEA, CHRISTINA Unavailable [address] + [place] [address] D Unavailable Unavailable Unavailable DEA, CHRISTINA Unavailable [address] + [place] [address] D Unavailable Unavailable Unavailable DEA, CHRISTINA Unavailable [address] + [place] [address] D Unavailable Unavailable Unavailable DEA, CHRISTINA Unavailable [address] + [place] [address] D Unavailable Unavailable Unavailable DEA, CHRISTINA Unavailable [address] + [place] [address] D Unavailable Unavailable Unavailable DEA, CHRISTINA Unavailable [address] + [place] [address] D Unavailable Unavailable Unavailable DEA, CHRISTINA Unavailable [address] + [place] [address] D Unavailable Unavailable Unavailable DEA, CHRISTINA Unavailable [address] + [place] [address] D Unavailable Unavailable Unavailable DEA, CHRISTINA Unavailable [address] + [place] [address] D Unavailable Unavailable Unavailable DEA, CHRISTINA Unavailable [address] + [place] [address] D Unavailable Unavailable Unavailable DEA, CHRISTINA Unavailable [address] + [place] [address] D Unavailable Unavailable Unavailable DEA, CHRISTINA Unavailable [address] + [place] [address] D Unavailable Unavailable Unavailable DEA, CHRISTINA Unavailable [address] + [place] [address] D Unavailable Unavailable Unavailable DEA, CHRISTINA Unavailable [address] + [place] [address] D Unavailable Unavailable Unavailable DEA, CHRISTINA Unavailable [address] + [place] [address] D Unavailable Unavailable Unavailable DEA, CHRISTINA Unavailable [address] + [place] [address] D Unavailable Unavailable Unavailable DEA, CHRISTINA Unavailable [address] + [place] [address] D Unavailable Unavailable Unavailable DEA, CHRISTINA Unavailable [address] + [place] [address] D Unavailable Unavailable Unavailable DEA, CHRISTINA Unavailable [address] + [place] [address] D Unavailable Unavailable Unavailable DEA, CHRISTINA Unavailable [address] + [place] [address] D Unavailable Unavailable Unavailable DEA, CHRISTINA Unavailable [address] + [place] [address] D Unavailable Unavailable Unavailable DEA, CHRISTINA Unavailable [address] + [place] [address] D Unavailable Unavailable Unavailable DEA, CHRISTINA Unavailable [address] + [place] [address] D Unavailable Unavailable Unavailable DEA, CHRISTINA Unavailable [address] + [place] [address] D Unavailable Unavailable Unavailable DEA, CHRISTINA Unavailable [address] + [place] [address] D Unavailable Unavailable Unavailable DEA, CHRISTINA Unavailable [address] + [place] [address] D Unavailable Unavailable Unavailable DEA, CHRISTINA Unavailable [address] + [place] [address] D Unavailable Unavailable Unavailable DEA, CHRISTINA Unavailable [address] + [place] [address] D Unavailable Unavailable Unavailable DEA, CHRISTINA Unavailable [address] + [place] [address] D Unavailable Unavailable Unavailable DEA, CHRISTINA Unavailable [address] + [place] [address] D Unavailable Unavailable Unavailable DEA, CHRISTINA Unavailable [address] + [place] [address] D Unavailable Unavailable Unavailable DEA, CHRISTINA Unavailable [address] + [place] [address] D Unavailable Unavailable Unavailable DEA, CHRISTINA Unavailable [address] + [place] [address] D Unavailable Unavailable Unavailable DEA, CHRISTINA Unavailable [address] + [place] [address] D Unavailable Unavailable Unavailable DEA, CHRISTINA Unavailable [address] + [place] [address] D Unavailable Unavailable Unavailable DEA, CHRISTINA Unavailable [address] + [place] [address] D Unavailable Unavailable Unavailable DEA, CHRISTINA Unavailable [address] + [place] [address] D Unavailable Unavailable Unavailable DEA, CHRISTINA Unavailable [address] + [place] [address] D Unavailable Unavailable Unavailable DEA, CHRISTINA Unavailable [address] + [place] [address] D Unavailable Unavailable Unavailable DEA, CHRISTINA Unavailable [address] + [place] [address] Care Team Providers Name Role Phone FRANCES KAUFMAN (PHYSICIANS AND SURGEONS) Attending Unavailable GANTA, ANDERSON Referring Unavailable OLDERFRANCES (PHYSICIANS AND SURGEONS) Referring Unavailable OLDERFRANCES (PHYSICIANS AND SURGEONS) Referring Unavailable TIMMY CHAPPELL (CAN FILLER) Attending Unavailable OLDER, FRANCES (PHYSICIANS AND SURGEONS) Referring Unavailable GANTA, ANDERSON Attending Unavailable GANTA, ANDERSON Referring Unavailable GANTA, ANDERSON Attending Unavailable IRMA VILLA (PHYSICIANS AND SURGEONS) Attending Unavailable GANTA, ANDERSON Attending Unavailable IRMA VILLA (PHYSICIANS AND SURGEONS) Attending Unavailable GANTA, ANDERSON Referring Unavailable FELICITA BEARDEN (PT) Attending Unavailable IRMA VILLA (PHYSICIANS AND SURGEONS) Referring Unavailable GANTA, ANDERSON Attending Unavailable GANTA, ANDERSON Referring Unavailable OLDERFRANCES (PHYSICIANS AND SURGEONS) Referring Unavailable GANTA, ANDERSON Referring Unavailable IRMA VILLA (PHYSICIANS AND SURGEONS) Attending Unavailable GANTA, ANDERSON Attending Unavailable GANTA, ANDERSON Referring Unavailable GANTA, ANDERSON Attending Unavailable IRMA VILLA (PHYSICIANS AND SURGEONS) Referring Unavailable Ganta, Anderson Primary Care Unavailable KotsonisShruthis F Admitting Unavailable Dinesh, Loida Consulting Unavailable Sadiq Navarro Attending Unavailable Kotsonis, Oscar F Admitting Unavailable Kotsonis, Oscar F Attending Unavailable Ganta, Anderson Primary Care Unavailable Kotsonis, Oscar F Consulting Unavailable Kotsonis, Oscar F Admitting Unavailable Paintsil, Sharon Attending Unavailable Ganta, Anderson Primary Care Unavailable Dinesh, Loida Consulting Unavailable Paintsil, Sharon Consulting Unavailable Kotsonis, Oscar F Admitting Unavailable Paintsil, Sharon Attending Unavailable Ganta, Anderson Primary Care Unavailable Dinesh, Loida Consulting Unavailable Paintsil, Sharon Consulting Unavailable Kotsonis, Oscar F Admitting Unavailable Paintsil, Sharon Attending Unavailable [facility] Unavailable Dinesh, Loida Consulting Unavailable Paintsil, Sharon Consulting Unavailable Kotsonis, Oscar F Admitting Unavailable Sexton PA-C, Minerva Attending Unavailable [facility] Unavailable Dinesh, Loida Consulting Unavailable Kotsonis, Oscar F Referring Unavailable [facility], Sadiq Consulting Unavailable Kotsonis, Oscar F Admitting Unavailable [facility], Sadiq Attending Unavailable [facility] Care Unavailable Dinesh, Loida Consulting Unavailable [facility], Sadiq Consulting Unavailable Dinesh, Loida Attending Unavailable [facility] Care Unavailable Cebul, Satish Attending Unavailable Cebul, Satish Referring Unavailable [facility] Unavailable [facility] Unavailable Dinesh, Loida Attending Unavailable [facility] Unavailable Koram, Shruti Roma Admitting Unavailable [facility], Sadiq Attending Unavailable Dinesh, Loida Consulting Unavailable Cebul, Satish Consulting Unavailable Koram, Shruti Roma Admitting Unavailable Koram, Shruti Roma Attending Unavailable [facility] Unavailable Koram, Shruti Roma Consulting Unavailable Koram, Shruti Roma Admitting Unavailable [facility] Unavailable Dinesh, Loida Consulting Unavailable [facility], Sadiq Attending Unavailable Cebul, Satish Consulting Unavailable Koram, Shruti Roma Consulting Unavailable Koram, Shruti Roma Admitting Unavailable Cebul, Satish Attending Unavailable [facility] Care Unavailable Dinesh, Loida Consulting Unavailable Cebul, Satish Consulting Unavailable Koram, Shruti Roma Consulting Unavailable Koram, Shruti Roma Admitting Unavailable Sexton PA-C, Minerva Attending Unavailable [facility] Unavailable Dinesh, Loida Consulting Unavailable Cebul, Satish Consulting Unavailable Koram, Shruti Roma Consulting Unavailable Koram, Shruti Roma Admitting Unavailable [facility], Sadiq Attending Unavailable [facility] Care Unavailable Dinesh, Loida Consulting Unavailable Cebul, Satish Consulting Unavailable [facility], Sadiq Consulting Unavailable Cebul, Satish Attending Unavailable Koram, Shruti Roma Admitting Unavailable [facility], Sadiq Attending Unavailable [facility] Care Unavailable Dinesh, Loida Consulting Unavailable Cebul, Satish Consulting Unavailable [facility], Sadiq Consulting Unavailable Mayo Miguel Attending Unavailable Oscar Ag Referring Unavailable Satish Phan Attending Unavailable [facility] Referring Unavailable Tylor Rudd Attending Unavailable Oscar Ag Referring Unavailable [facility] Unavailable White, Isamar Admitting Unavailable Joao Brown, D.O. Consulting Unavailable Sementi, Tammie Attending Unavailable Dinesh, Loida Consulting Unavailable White, Isamar Admitting Unavailable White, Isamar Attending Unavailable [facility] Care Unavailable White, Isamar Consulting Unavailable White, Isamar Admitting Unavailable Joao Brown, D.O. Attending Unavailable [facility] Care Unavailable Joao Brown, D.O. Consulting Unavailable Sementi, Tammie Consulting Unavailable White, Isamar Admitting Unavailable Sementi, Tammie Attending Unavailable [facility] Unavailable Joao Brown, D.O. Consulting Unavailable Dinesh, Loida Consulting Unavailable Sementi, Tammie Consulting Unavailable White, Isamar Admitting Unavailable Joao Brown, D.O. Attending Unavailable [facility] Care Unavailable Joao Brown, D.O. Consulting Unavailable Dinesh, Loida Consulting Unavailable Sementi, Tammie Consulting Unavailable White, Isamar Admitting Unavailable Sementi, Tammie Attending Unavailable [facility] Unavailable Joao Brown, D.O. Consulting Unavailable Dinesh, Loida Consulting Unavailable Sementi, Tammie Consulting Unavailable [facility] Unavailable Paintsil, Sharon Admitting Unavailable Dinesh, Loida Consulting Unavailable Ramon, Sadiq Attending Unavailable Kyrie Garsia Consulting Unavailable Vj Garcia Consulting Unavailable Paintsil, Sharon Admitting Unavailable Paintsil, Sharon Attending Unavailable [facility] Care Unavailable Dinesh, Loida Consulting Unavailable Paintsil, Sharon Consulting Unavailable Paintsil, Sharon Admitting Unavailable Paintsil, Sharon Attending Unavailable [facility] Care Unavailable Dinesh, Loida Consulting Unavailable Paintsil, Sharon Consulting Unavailable Paintsil, Sharon Admitting Unavailable Paintsil, Sharon Attending Unavailable [facility] Unavailable Dinesh, Loida Consulting Unavailable Paintsil, Sharon Consulting Unavailable Paintsil, Sharon Admitting Unavailable Paintsil, Sharon Attending Unavailable [facility] Unavailable Dinesh, Loida Consulting Unavailable Ady, Kyrie Consulting Unavailable Paintsil, Sharon Consulting Unavailable Paintsil, Sharon Admitting Unavailable Yari Stein CAN FILLER-C Attending Unavailable [facility] Unavailable Dinesh, Loida Consulting Unavailable Ady, Kyrie Consulting Unavailable Ramon, Sadiq Consulting Unavailable Paintsil, Sharon Admitting Unavailable Ady, Kyrie Attending Unavailable [facility] Unavailable Dinesh, Loida Consulting Unavailable Ady, Kyrie Consulting Unavailable Ramon, Sadiq Consulting Unavailable Paintsil, Sharon Admitting Unavailable Ramon, Sadiq Attending Unavailable [facility] Unavailable Dinesh, Loida Consulting Unavailable Ady, Kyrie Consulting Unavailable Ramon, Sadiq Consulting Unavailable Paintsil, Sharon Admitting Unavailable Yari Stein CAN FILLER-C Attending Unavailable [facility] Unavailable Dinesh, Loida Consulting Unavailable Ady, Kyrie Consulting Unavailable Ramon, Sadiq Consulting Unavailable Paintsil, Sharon Admitting Unavailable Ramon, Sadiq Attending Unavailable [facility] Unavailable Dinesh, Loida Consulting Unavailable Ady, Kyrie Consulting Unavailable Ramon, Sadiq Consulting Unavailable Paintsil, Sharon Admitting Unavailable Joao Hayes D.O. Attending Unavailable [facility] Unavailable Dinesh, Loida Consulting Unavailable Ady, Kyrie Consulting Unavailable Ramon, Sadiq Consulting Unavailable Paintsil, Sharon Admitting Unavailable Yari Stein CAN FILLER-C Attending Unavailable [facility] Unavailable Dinesh, Loida Consulting Unavailable Ady, Kyrie Consulting Unavailable Ramon, Sadiq Consulting Unavailable Paintsil, Sharon Admitting Unavailable Joao Hayes D.O. Attending Unavailable [facility] Unavailable Dinesh, Loida Consulting Unavailable Ady, Kyrie Consulting Unavailable Ramon, Sadiq Consulting Unavailable Paintsil, Sharon Admitting Unavailable Ramon, Sadiq Attending Unavailable [facility] Unavailable Dinesh, Loida Consulting Unavailable Ady, Kyrie Consulting Unavailable Ramon, Sadiq Consulting Unavailable Paintsil, Sharon Admitting Unavailable Yari Stein CAN FILLER-C Attending Unavailable [facility] Unavailable Dinesh, Loida Consulting Unavailable Ady, Kyrie Consulting Unavailable Vj Garcia Consulting Unavailable Ramon, Sadiq Consulting Unavailable Paintsil, Sharon Admitting Unavailable Joao Hayes D.O. Attending Unavailable [facility] Care Unavailable Dinesh, Loida Consulting Unavailable Ady, Kyrie Consulting Unavailable Garcia, Vj Consulting Unavailable Ramon, Sadiq Consulting Unavailable Paintsil, Sharon Admitting Unavailable Ramon, Sadiq Attending Unavailable Ganta, Anderson Primary Care Unavailable Dinesh, Loida Consulting Unavailable Ady, Kyrie Consulting Unavailable Garcia, Vj Consulting Unavailable Ramon, Sadiq Consulting Unavailable Paintsil, Sharon Admitting Unavailable Ramon, Sadiq Attending Unavailable Ganta, Anderson Primary Care Unavailable Dinesh, Loida Consulting Unavailable Ady, Kyrie Consulting Unavailable Garcia, Vj Consulting Unavailable Ramon, Sadiq Consulting Unavailable Ganta, Anderson Primary Care Unavailable Yonathan, Kayla Admitting Unavailable Sementi, Tammie Attending Unavailable Dinesh, Loida Consulting Unavailable Yonathan, Kayla Admitting Unavailable Ganta, Anderson Primary Care Unavailable Yonathan, Kayla Consulting Unavailable John Darnell Attending Unavailable Mary Johnson Attending Unavailable Yonathan, Kayla Admitting Unavailable Sementi, Tammie Attending Unavailable Ganta, Anderson Primary Care Unavailable Sementi, Tammie Consulting Unavailable Ganta, Anedrson Attending Unavailable Ganta, Anderson Primary Care Unavailable Yonathan, Kayla Admitting Unavailable Sementi, Tammie Attending Unavailable Ganta, Anderson Primary Care Unavailable Sementi, Tammie Consulting Unavailable Yonathan, Kayla Admitting Unavailable Sementi, Tammie Attending Unavailable Ganta, Anderson Primary Care Unavailable Sementi, Tammie Consulting Unavailable Norah Adams CAN FILLER-C Attending Unavailable Ganta, Anderson Referring Unavailable Ganta, Anderson Primary Care Unavailable Mayo Miguel Attending Unavailable Isamar Smith Referring Unavailable Vj Cabral Attending Unavailable Ganta, Anderson Referring Unavailable Ganta, Anderson Primary Care Unavailable Lg Hinojosa Attending Unavailable Tylor Rudd Attending Unavailable White, Isamar Referring Unavailable Loida Montiel Attending Unavailable Mary Johnson Attending Unavailable Loida Montiel Attending Unavailable Ganta, Anderson Primary Care Unavailable Tylor Rudd Attending Unavailable DestiniVinnie peres Referring Unavailable Norah Adams CAN FILLER-C Attending Unavailable Ganta, Anderson Referring Unavailable Jenna Bedoya Attending Unavailable Ganta, Anderson Referring Unavailable Rose Marie Abrams Attending Unavailable Aj Faith Attending Unavailable Ganta, Anderson Referring Unavailable Ganta, Anderson Primary Care Unavailable Aj Faith Attending Unavailable Aj Faith Referring Unavailable Ganta, Anderson Primary Care Unavailable Dinesh, Loida Consulting Unavailable DineshMaxLoida Attending Unavailable Ganta, Anderson Primary Care Unavailable Ganta, Anderson Primary Care Unavailable Byron Saldana Attending Unavailable Norah Adams Attending Unavailable Ganta, Anderson Referring Unavailable Vj Cabral Attending Unavailable Loida Montiel Attending Unavailable Ganta, Anderson Primary Care Unavailable Loida Montiel Attending Unavailable Ganta, Anderson Primary Care Unavailable Dinesh, Loida Attending Unavailable Ganta, Anderson Primary Care Unavailable Dinesh, Loida Attending Unavailable Dinesh, Loida Referring Unavailable Ganta, Anderson Primary Care Unavailable Cebul, Satish Attending Unavailable Dinesh, Loida Referring Unavailable Cebul, Satish Attending Unavailable Cebul, Satish Referring Unavailable Ganta, Anderson Primary Care Unavailable Cebul, Satish Attending Unavailable Dinesh, Loida Referring Unavailable PROBLEMS PROBLEMS DATE TYPE CONDITION / CODE ATTENDING STATUS SOURCE 09/17/2018 Unknown R94.31 - Abnormal BlaireDominick youngril Active [facility] electrocardiogram Community [ECG] [EKG] / Hospital R94.31(ICD-10) Repository 09/17/2018 Unknown I50.33 - Acute on BlaireTylor young Active [facility] chronic diastolic Community (congestive) heart Hospital failure / Repository I50.33(ICD-10) 08/29/2018 Unknown N18.4 - Chronic kidney CebulSatish Active [facility] disease, stage 4 Community (severe) / Hospital N18.4(ICD-10) Repository 08/08/2018 Unknown G89.18 - Other acute CebuSatish adams Active [facility] postprocedural pain / Community G89.18(ICD-10) Hospital Repository 07/16/2018 Active Other forms of dyspnea NA Active [facility] / R06.09(ICD-10) Clinic Main [place] Repository 07/16/2018 Active Other abnormalities of NA Active [facility] breathing / Clinic Main R06.89(ICD-10) [place] Repository 06/11/2018 Active Unknown / UNK(Unknown) FELICITA BEARDEN Active [facility] (PT) Clinic Main [place] Repository 05/19/2018 Active Other hyperlipidemia / NA Active [facility] E78.4(ICD-10) Clinic Main [place] Repository 06/12/2016 Active Type 2 diabetes NA Active [facility] mellitus with Clinic Main unspecified [place] complications / Repository E11.8(ICD-10) 06/12/2016 Active Type 2 diabetes NA Active [facility] mellitus with Clinic Main hyperglycemia / [place] E11.65(ICD-10) 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 / Clinic Main Z79.4(ICD-10) [place] Repository 05/19/2018 Active Hypokalemia / NA Active [facility] E87.6(ICD-10) Clinic Main [place] Repository 02/24/2018 Unknown I49.1 - Atrial Aj Faith Active [facility] premature Community depolarization / Hospital I49.1(ICD-10) Repository 02/24/2018 Unknown N17.9 - Acute kidney RoofAj Active [facility] failure, unspecified / Community N17.9(ICD-10) Hospital Repository 01/21/2018 Unknown E11.22 - Type 2 ShoNorah suarez Active [facility] diabetes mellitus with J CAN FILLER-C Community diabetic chronic Hospital kidney disease / Repository E11.22(ICD-10) 01/17/2018 Active Personal history of NA Active [facility] other diseases of the Clinic Other nervous system and [place] sense organs / Repository Z86.69(ICD-10) 12/17/2017 Unknown E11.9 - Type 2 Norah Adams Active [facility] diabetes mellitus J CAN FILLER-C Community without complications Hospital / E11.9(ICD-10) Repository 12/13/2017 Unknown Z51.89 - Encounter for Anderson Gaston Active [facility] other specified Community aftercare / Hospital Z51.89(ICD-10) Repository 12/31/2017 Unknown R06.02 - Shortness of Blaire, Durham Active [facility] breath / Community R06.02(ICD-10) Hospital Repository 12/11/2017 Unknown J96.01 - Acute Ramon, Sadiq Active [facility] respiratory failure Community with hypoxia / Hospital J96.01(ICD-10) Repository 12/23/2017 Unknown I49.3 - Ventricular Blaire, Tylor Active [facility] premature Community depolarization / Hospital I49.3(ICD-10) Repository 12/17/2017 Unknown I50.31 - Acute Yifan Miguelel Active [facility] diastolic (congestive) Community heart failure / Hospital I50.31(ICD-10) Repository 10/28/2017 Active Left upper quadrant NA Active [facility] pain / R10.12(ICD-10) Clinic Main [place] Repository 10/28/2017 Active Vomiting without NA Active [facility] nausea / Clinic Main R11.11(ICD-10) [place] Repository 10/28/2017 Active Noninfective NA Active [place] gastroenteritis and [facility] Main colitis, unspecified / [place] K52.9(ICD-10) Repository PROCEDURES PROCEDURES No Procedure Records FoundRESULTS RESULTS PROGRESS Observed: 09/29/2018 Status: COMPLETED Source: [place] 6:45 AM [facility] REPOSITORY HNO ID: [id number] Author: Anurag (Rn) ANDER Walter Service: (none) Author Type: Registered Nurse Type: Progress Notes Filed: 09/29/2018 6:49 AM Note Text: New Referral Referring Physician Dr. Loida Montiel Organ Type kidney ESRD Yes. Cause: DM Dialysis Dependant? Yes Name of Dialysis Facility: [facility] [place] Diabetes Yes. Diagnosed at age 20's and Type 2 Current BMI 33.4 Previous Transplant No Date of Last Transplant n/a Currently Listed? No. Facility: n/a Willing to accept blood transfusion? Yes Potential Living Donor? No Full transplant evaluation? Yes Nephrology Screen Required? 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 RHETT: No Date of last office visit in primary care: 08/30/18 Last 2 Encounter Wt Readings: Date: Wt: 08/30/2018 97.5 kg (215 lb) 08/19/2018 109.8 kg (242 lb) Previous labs/tests for medication: Not applicable Please advise. Thank you. Annalisa Villa APRN.[employer] 09/26/2018 4:11 PM Signed The following approved medication requests have been transmitted electronically. Signed Prescriptions Disp Refills lisinopril (ZESTRIL, PRINIVIL) 20 mg tablet 90 tablet 3 Sig: Take 1 tablet by mouth once daily. RHETT: No Authorizing Provider: IRMA VILLA (ANDRE) Irma Villa APRN.[employer] Allergies As of Date: 09/26/2018 (No Known Allergies) Date Reviewed: 08/30/2018 Reviewed by: Litzy Cunha LPN - Fully Assessed Reason for Visit: Refill Request [94] Order(s):lisinopril (ZESTRIL, PRINIVIL) 20 mg tabletTake 1 tablet by mouth once daily.Disp: 90 tabletRfl: 3 Prescriptions as of 09/26/2018 Sig: LISINOPRIL 20 MG TABLET Take 1 tablet by mouth once d* CALCIUM ACETATE 667 MG TABLET Take by mouth three times ramu* FUROSEMIDE 20 MG TABLET Take 1 tablet by mouth twice * POTASSIUM CHLORIDE ER 10 MEQ * Take 1 tablet by mouth once d* HYDRALAZINE 25 MG TABLET Take 1 tablet by mouth three * CALCITRIOL 0.5 MCG CAPSULE Take 1 capsule by mouth once * PERFLUTREN LIPID MICROSPHERES* Inject 1.3 mL intravenously a* BENZONATATE 100 MG CAPSULE Take 2 capsules by mouth thre* Patient not taking: Reported on 08/30/2018 ONDANSETRON 4 MG DISINTEGRATI* Take 1 tablet [...] Kit* COMPOUNDED PRESCRIPTION KNEE HIGH COMPRESSION STOCKIN* RANITIDINE 300 MG TABLET Take 1 tablet by mouth daily * Patient not taking: Reported on 08/30/2018 ASPIRIN 81 MG CHEWABLE TABLET Take 81 mg by mouth once adela* ACETAMINOPHEN ORAL Take by mouth. 1000 mg bid f* Problem List As Of Date 09/26/2018 Noted Resolved Uncontrolled type 2 diabetes mellitus [...] ordered this encounter Disp Refills Start End LISINOPRIL 20 MG TABLET 90 t* 3 09/26/2018 Route: ORAL Sig: Take 1 tablet by mouth once daily. Medications Discontinued During This Encounter lisinopril (ZESTRIL, PRINIVIL) 20 mg* 30 t* 2 05/19/2018 09/26/2018 Route: ORAL Sig: Take 1 tablet by mouth once daily. Disc: Reason for discontinue is not on file. Encounter Status:Closed by IRMA VILLA CNP on 09/26/18 SURGERY VISIT REPORT Observed: 09/16/2018 Status: F Source: [place] 4:28 PM [facility] REPOSITORY [facility] [address] [place] [address] OFFICE VISIT Date of Service: 09/16/18 MR#: [id number] Acct: [id number] Name: WILLIAMS BURGOS Rep #: [id number] : 1970 Provider: Satish Phan MD Age/Sex: 47/M Location: [facility] Status: Signed Intake Intake Visit Reasons: recheck fistula Chief Complaint: recheck right arm fistula Key Filer Required: No Is patient in pain?: No Allergies No Known Allergies Allergy (Verified 09/16/18 15:52) Medications Gabapentin [Neurontin] 300 mg PO TIDCM 07/15/13 [History Confirmed 08/26/18] Atorvastatin Calcium [Lipitor] 20 mg PO QHS 11/19/17 [History Confirmed 08/26/18] Atenolol [Tenormin (beta elizabeth)] 100 mg PO DAILY 11/28/17 [History Confirmed 08/26/18] tamsulosin 0.4 mg capsule 0.4 mg PO DAILY cap 01/20/18 [History Confirmed 08/26/18] insulin glargine (U-100) 100 unit/mL (3 mL) subcutaneous pen 4 - 6 unit SQ QHS ml 07/11/18 [History Confirmed 08/26/18] Calcitriol [Rocaltrol] 0.5 mcg PO DAILY 08/04/18 [History Confirmed 08/26/18] Aspirin [Aspirin, Baby] 81 mg PO DAILY@0800 08/21/18 [History Confirmed 08/26/18] Calcium Acetate [Phoslo Gel Cap] 667 mg PO TIDCM #90 cap 08/25/18 [Rx Confirmed 08/26/18] Furosemide [Lasix] 80 mg PO BID@1000,1800 #30 tab 08/25/18 [Rx Confirmed 08/26/18] Insulin Lispro [Humalog KwikPen] See Protocol SQ ACHS insuln.pen 08/25/18 [Rx Confirmed 08/26/18] Acetaminophen [Tylenol] 1,000 mg PO Q6H PRN PRN 08/26/18 [History Confirmed 08/26/18] Bupropion HCl [Bupropion Xl] 300 mg PO DAILY 08/26/18 [History Confirmed 08/26/18] Amlodipine [Norvasc] 10 mg PO DAILY #0 08/29/18 [Rx Confirmed 08/26/18] Hydralazine HCl 25 mg PO TID #90 tab 08/29/18 [Rx] Subjective Details: 47-year-old gentleman. He returns for surgical follow-up status post 2 different surgical interventions. On August 08, 2018 I placed a right forearm radial to cephalic arteriovenous fistula for him. On August 27, 2018 I placed a right internal jugular pre-curved 19 cm palindrome catheter. Apparently on Saturday the catheter became slightly sore. He was evaluated by Dr. Loida Montiel and by the patient account he was initiated on cephalexin. The patient believes that the soreness has improved at the catheter exit site. The patient is referred back however today for updated surgical evaluation of his right forearm arteriovenous fistula. It is hoped that he can utilize the fistula for hemodialysis. A more current evaluation is requested. Objective Details: Right chest catheter exit site mild erythema at the catheter exit site. Slightly tender. The catheter tunnel seems to be nontender. No purulent discharge Right forearm radiocephalic AV fistula has a pulse, thrill, bruit. I inspected the area with ultrasound the anastomosis appears to be widely patent and the fistula appears to be of adequate diameter and the fistula appears to be of adequate depth Assessment AND Plan Problems 1. Problem with dialysis access T82.898A Plan I am recommending that the patient be able to utilize his right forearm radiocephalic arteriovenous fistula on September 22, 2018. We have redressed his catheter site. He has been initiated on oral antibiotic therapy with improvement. The patient has been greatly cautioned that if he has any symptoms of increased pain drainage fever or chills that he is to present to the emergency room or notify Dr. Loida Montiel or myself immediately. Once the fistula is successfully accessed and the patient is encouraged to return to my office in a very short timely fashion to have these catheters removed. CC: Dr. Loida Phan M.D., F.A.C.S. Coding Level of Care Code Global Post Op Diagnoses Problem with dialysis access T82.898A 09/16/18 1628 <Electronically signed by Satish Phan MD> Date Satish Phan MD Cosign Signature: Date (if applicable) CC: Loida Montiel PROGRESS Observed: 08/30/2018 Status: COMPLETED Source: [place] 11:18 AM [facility] REPOSITORY O ID: [id number] Author: Anderson Gaston Service: (none) Author Type: Physician Type: Progress Notes Filed: 08/30/2018 12:50 PM Note Text: Reason for Visit Patient presents with: Hospital Follow Up Williams Burgos is a 47 year old male who presents here today for Above Complaints.. Health Maintenance BP CONTROLLED (<130/80) HPI Patient was admitted in the [facility] 2 times in the past week. Admitted on Aug 22 and dcs on Aug 25 from [facility] ,patient went in Feeling sob and high bp , Patient has nephrotic range protienuria... From diabetic nephropathy, from very poor compliance and resistance to all out recommendation for his chronic problem ...... he was in the hospital almost the whole of last week. He halso has CHF - chronic diastolic failure that is followed up by Marianna No, He had a fistula put in on 08/[address] phan due to stage 4 kidney disease, he need to be on dialysis, He is started on lasix at 80 mgs , calcitriol and phoslo Potassium was high but he was given kayexalate in the hospital and deemed aracelis to send home. He was then readmitted on aug 26 till aug 29, went in for spitting blood, and being out of breath, he could not walk more than 10 steps.... he had stopped taking basaglar.... There were some changes to sugars made. He is using 1 unit of novolog per for every 10 pounds over 100. Uses a sliding scale daily. He got his dialysis for the first time and a lot of fluid was removed. 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 No problem-specific Assessment AND Plan notes found [...] SHUNT FOR DIALYSIS Right 08/08/2018 Done at [facility] by Satish Phan MD - CYSTOSCOPY,REMV CALCULUS,COMPLIC [...] - amLODIPine (NORVASC) 5 mg tablet - aspirin 81 mg chewable tablet - atenolol (TENORMIN) 100 mg tablet - atorvastatin (LIPITOR) 20 mg tablet - blood sugar diagnostic (BLOOD GLUCOSE TEST) test strip - Blood-Glucose Meter monitoring kit - buPROPion XL (WELLBUTRIN XL) 300 mg 24 hr tablet - calcitriol (ROCALTROL) 0.5 mcg capsule - calcium acetate (CALPHRON) 667 mg tablet - CPAP - furosemide (LASIX) 20 mg tablet - hydrALAZINE (APRESOLINE) 25 mg tablet - insulin aspart U-100 (NOVOLOG FLEXPEN U-100 INSULIN) 100 unit/mL inpn - insulin glargine (LANTUS SOLOSTAR U-100 INSULIN) 100 unit/mL (3 mL) inpn - Insulin Avilla, Disposable, (BD ULTRA-FINE SANDRA PEN NEEDLE) 32 gauge x /32 ndle - Lancets lancets - lisinopril (ZESTRIL, PRINIVIL) 20 mg tablet - ondansetron orally disintegrating (ZOFRAN ODT) 4 mg disintegrating tablet - potassium chloride (K-TAB) 10 mEq tablet - tamsulosin ER (FLOMAX) 0.4 mg cap - benzonatate (TESSALON PERLES) 100 mg capsule - gabapentin (NEURONTIN) 300 mg capsule - perflutren lipid microspheres (DEFINITY) 1.1 mg/mL injection (to be provided with echo procedure) - Ranitidine HCl (ZANTAC) 300 mg tablet Review of Systems CONSTITUTIONAL: No fevers, chills [...] or numbness of concern. Physical Exam BP 136/72 Pulse 76 Resp 20 Wt 97.5 kg (215 lb) BMI 33.67 kg/m? General appearance: Well appearing, alert, in [...] murmur, gallop, or rubs. Extremities: No deformities, patient has edema 3+, No skin discoloration, clubbing or cyanosis. Good capillary refill. ASSESSMENT/PLAN: 1. Hospital discharge follow-up - ICD9: V67.59, ICD10: Z09 (primary diagnosis) New medications from the [facility] were calcitrion, phoslo. 2. Uncontrolled type 2 diabetes mellitus with complication, with long-term current use of insulin (HCC) - ICD9: 250.82, V58.67, ICD10: E11.8, E11.65, Z79.4 He is not taking the glargine, He is doing the sliding scale, he would benefit from seeing the pharmacist. - Continue current medications - CONSULT TO AMBULATORY CLINIC PHARMACY 3. Hemodialysis status (HCC) - ICD9: V45.11, ICD10: Z99.2 The patient has...... Dialysis catheter... In the right jugular vein. 4. Diastolic dysfunction - ICD9: 429.9, ICD10: I51.9 He needs to take the lasix daily discussed salt restriction. 5. Hyperkalemia - ICD9: 276.7, ICD10: E87.5 Potassium will be monitored With dialysis. ANDERSON GASTON MD CNOV Observed: 08/30/2018 Status: COMPLETED Source: [place] 10:45 AM [facility] REPOSITORY Office Visit (INTMWS) WILLIAMS BURGOS ([id number]) 1970 M Date Time Provider Department 08/30/18 10:45 AM ANDERSON GASTON INTMWS During your visit today, we recorded the following information about you: Pulse Respiration Blood pressure Weight 76/minute 20/minute 136/72 97.5 kg ANDERSON GASTON MD 08/30/2018 12:50 PM Signed Reason for Visit Patient presents with: Hospital Follow Up Williams Burgos is a 47 year old male who presents here today for Above Complaints.. Health Maintenance BP CONTROLLED (<130/80) HPI Patient was admitted in the [facility] 2 times in the past week. Admitted on Aug 22 and dcs on Aug 25 from [facility] ,patient went in Feeling sob and high bp , Patient has nephrotic range protienuria... From diabetic nephropathy, from very poor compliance and resistance to all out recommendation for his chronic problem ...... he was in the hospital almost the whole of last week. He halso has CHF - chronic diastolic failure that is followed up by Marianna No, He had a fistula put in on 08/[address] phan due to stage 4 kidney disease, he need to be on dialysis, He is started on lasix at 80 mgs , calcitriol and phoslo Potassium was high but he was given kayexalate in the hospital and deemed aracelis to send home. He was then readmitted on aug 26 till aug 29, went in for spitting blood, and being out of breath, he could not walk more than 10 steps.... he had stopped taking basaglar.... There were some changes to sugars made. He is using 1 unit of novolog per for every 10 pounds over 100. Uses a sliding scale daily. He got his dialysis for the first time and a lot of fluid was removed. 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 No problem-specific Assessment AND Plan notes found [...] SHUNT FOR DIALYSIS Right 08/08/2018 Done at [facility] by Satish Phan MD - CYSTOSCOPY,REMV CALCULUS,COMPLIC [...] - amLODIPine (NORVASC) 5 mg tablet - aspirin 81 mg chewable tablet - atenolol (TENORMIN) 100 mg tablet - atorvastatin (LIPITOR) 20 mg tablet - blood sugar diagnostic (BLOOD GLUCOSE TEST) test strip - Blood-Glucose Meter monitoring kit - buPROPion XL (WELLBUTRIN XL) 300 mg 24 hr tablet - calcitriol (ROCALTROL) 0.5 mcg capsule - calcium acetate (CALPHRON) 667 mg tablet - CPAP - furosemide (LASIX) 20 mg tablet - hydrALAZINE (APRESOLINE) 25 mg tablet - insulin aspart U-100 (NOVOLOG FLEXPEN U-100 INSULIN) 100 unit/mL inpn - insulin glargine (LANTUS SOLOSTAR U-100 INSULIN) 100 unit/mL (3 mL) inpn - Insulin Avilla, Disposable, (BD ULTRA-FINE SANDRA PEN NEEDLE) 32 gauge x 5/32 ndle - Lancets lancets - lisinopril (ZESTRIL, PRINIVIL) 20 mg tablet - ondansetron orally disintegrating (ZOFRAN ODT) 4 mg disintegrating tablet - potassium chloride (K-TAB) 10 mEq tablet - tamsulosin ER (FLOMAX) 0.4 mg cap - benzonatate (TESSALON PERLES) 100 mg capsule - gabapentin (NEURONTIN) 300 mg capsule - perflutren lipid microspheres (DEFINITY) 1.1 mg/mL injection (to be provided with echo procedure) - Ranitidine HCl (ZANTAC) 300 mg tablet Review of Systems CONSTITUTIONAL: No fevers, chills [...] or numbness of concern. Physical Exam BP 136/72 Pulse 76 Resp 20 Wt 97.5 kg (215 lb) BMI 33.67 kg/m? General appearance: Well appearing, alert, in [...] murmur, gallop, or rubs. Extremities: No deformities, patient has edema 3+, No skin discoloration, clubbing or cyanosis. Good capillary refill. ASSESSMENT/PLAN: 1. Hospital discharge follow-up - ICD9: V67.59, ICD10: Z09 (primary diagnosis) [facility], phoslo. 2. Uncontrolled type 2 diabetes mellitus with complication, with long-term current use of insulin ([facility]) - ICD9: 250.82, V58.67, ICD10: E11.8, E11.65, Z79.4 He is not taking the glargine, He is doing the sliding scale, he would benefit from seeing the pharmacist. - Continue current medications - CONSULT TO AMBULATORY CLINIC PHARMACY 3. Hemodialysis status ([facility]) - ICD9: V45.11, ICD10: Z99.2 The patient has...... Dialysis catheter... In the right jugular vein. 4. Diastolic dysfunction - ICD9: 429.9, ICD10: I51.9 He needs to take the lasix daily discussed salt restriction. 5. Hyperkalemia - ICD9: 276.7, ICD10: E87.5 Potassium will be monitored With dialysis. ANDERSON GASTON MD Referring Provider: SELF [200] Allergies As of Date: 08/30/2018 (No Known Allergies) Date Reviewed: 08/30/2018 Reviewed by: Litzy Cunha LPN - Fully Assessed Reason for Visit: Hospital Follow Up [177] Primary Visit Diagnosis:Hospital discharge follow-up [Z09] Other Visit Diagnoses:Uncontrolled type 2 diabetes mellitus with complication, with long-term current use of insulin ([facility]) [E11.8, E11.65, Z79.4] Hemodialysis status ([facility]) [Z99.2] Diastolic dysfunction [I51.9] Hyperkalemia [E87.5] Order(s):CONSULT TO AMBULATORY CLINIC PHARMACY [551964] Order #: [id number]: 1 Prescriptions as of 08/30/2018 Sig: COMPOUNDED PRESCRIPTION KNEE HIGH COMPRESSION STOCKIN* ACETAMINOPHEN ORAL Take by mouth. 1000 mg bid f* AMLODIPINE 5 MG TABLET Take 1 tablet by mouth once d* ASPIRIN 81 MG CHEWABLE TABLET Take 81 mg by mouth once adela* ATENOLOL 100 MG TABLET Take 1 tablet by mouth once d* ATORVASTATIN 20 MG TABLET Take 1 tablet by mouth at bed* BLOOD SUGAR DIAGNOSTIC STRIPS TEST BLOOD SUGAR 3 TIMES PER * BLOOD-GLUCOSE METER KIT Glucose Meter of Choice - Kit* BUPROPION XL 300 MG 24 HR TAB TAKE 1 TABLET BY MOUTH ONCE D* CALCITRIOL 0.5 MCG CAPSULE Take 1 capsule by mouth once * CALCIUM ACETATE 667 MG TABLET Take by mouth three times ramu* CPAP Initiate Auto PAP @ 5- 20 cm o* FUROSEMIDE 20 MG TABLET Take 1 tablet by mouth twice * HYDRALAZINE 25 MG TABLET Take 1 tablet [...] Take 1 tablet by mouth every * POTASSIUM CHLORIDE ER 10 MEQ * Take 1 tablet by mouth once d* TAMSULOSIN 0.4 MG CAPSULE TAKE 1 CAPSULE BY MOUTH ONCE * BENZONATATE 100 MG CAPSULE Take 2 capsules by mouth thre* Patient not taking: Reported on 08/30/2018 GABAPENTIN 300 MG CAPSULE Take 1 capsule by mouth three* PERFLUTREN LIPID MICROSPHERES* Inject 1.3 mL intravenously a* RANITIDINE 300 MG TABLET Take 1 tablet by mouth daily * Patient not taking: Reported on 08/30/2018 Problem List As Of Date 08/30/2018 Noted Resolved Uncontrolled type 2 diabetes mellitus [...] instability [R26.81] INVALID FOR* Encounter Status:Closed by ANDERSON GASTON MD on 08/30/18 DISCHARGE SUMMARY Observed: 08/29/2018 Status: F Source: [place] 3:45 PM [facility] REPOSITORY [facility] Medical Records Department [address] [place] [address] Discharge Summary 08/29/18 1135 MR#: [id number] Acct: [id number] Name: WILLIAMS BURGOS Rep #: [id number] : 1970 47 From: Sadiq Navarro MD PCP: Anderson Gaston MD Status: ADM IN Y Location: [place] [address] Discharge Date and Diagnosis Date of Admission: 08/26/18 Date of Discharge: 08/29/18 - Secondary Discharge Diagnosis Chronic Problems (Last [...] Treatment Operations: None Summary of Care Provided: T] This is a 47-year-old gentleman who was admitted for generalized swelling and anasarca secondary to CKD stage V. Patient has chronic diastolic heart failure. The patient had right sided permacath on 08/[address] Montiel and Dr. Satish Phan consult reviewed and appreciated. 1. CKD V secondary to diabetic nephropathy with nephrotic range proteinuria-on hemodialysis. Hyperkalemia resolved after dialysis. Mild hypocalcemia. On calcitriol and PhosLo. Patient was seen by Dr. Montiel. Outpatient dialysis was set up. Hepatitis panel as requirement for dialysis set up is negative. 2. Hemoptysis - none further. Mild decline in hgb. Hemoglobin is stable. H AND H improved from 8.5-9.7 at baseline. 3. Anemia of chronic disease - 4. T2 DM - SSI 5. Chronic diastolic CHF - does not appear to be acute exacerbation - continue current meds, O2, aerosols prn. 6. Anx/Depression - wellbutrin. 7. HLD - statin 8. HTN - mildly elevated - norvasc, atenolol, hydralazine DVT ppx: SCDs Discharge medication reconciliation done. Discharge follow- up instructions completed. Discharge process discussed with the patient. Total time spent, exact 35 minutes on discharge meds reconciliation, examination, review of imaging and blood test and discussion with the patient on follow-up instructions. Laboratory Results 08/29/18 06:33: Sodium 140, Potassium 3.9, Chloride 106, Carbon Dioxide 27.0, Anion Gap 7, BUN 41 H, Creatinine 4.47 H, Estim Creat Clear Calc 19.34, Est GFR (MDRD) Af Amer 18 L, Est GFR (MDRD) Non-Af 15 L, BUN/Creatinine Ratio 9.2 L, Glucose 130 H, Calcium 7.6 L 08/29/18 06:33: Iron 54 L, TIBC 242 L, Iron Saturation 22.3 08/29/18 06:59: POC Glucose 116 H 08/29/18 07:00: POC Glucose 127 H 08/29/18 12:52: POC Glucose 148 H Subjective: Patient is feels much better after dialysis. Outpatient dialysis was set up. Blood pressure is controlled. Generally, runs in systolic 140s-150s. Objective: General: Alert, Oriented x3, Cooperative HEENT: Atraumatic, PERRLA, EOMI, Normocephalic Neck: Supple, No JVD, Negative Carotid Bruits Lungs: No rhonchi, No wheeze, No rales, air entry diminished bilaterally in the lung bases Cardiovascular: Regular rate, Normal S1, Normal S2, No murmurs Abdomen: Bowel Sounds Present, Soft, Non Tender Extremities: Capillary Refill Less than 3 Seconds, bilateral leg edema Skin: No rashes, No breakdown Musculoskeletal: No Tenderness to Palpation of Joints or Extremities, Arthritic Changes Neurological: Cranial nerves II-XII grossly intact Psych/Mental Status: Normal Affect, Appropriate - Physical Exam Vital Signs Temp Pulse Resp BP Pulse Ox 98.3 F 73 16 171/89 H 95 08/29/18 10:00 08/29/18 10:56 08/29/18 10:00 08/29/18 10:00 08/29/18 10:00 Oxygen Flow Rate (L/min) 2 Oxygen Delivery Method Nasal Cannula Weight: 223 lb 5.252 oz Body Mass Index (BMI) 35.9 Finger Stick Blood Glucose 83 Intake and Output for Last 24 Hours Intake Total 320 / 320 1120 / 1120 100 / 100 Output Total 3200 / 3200 500 / 500 Balance -2880 / -2880 620 / 620 100 / 100 Laboratory Tests Past 24 Hrs Sodium 140 Potassium 3.9 Chloride 106 POC Glucose POC Glucose 127 H 116 H 180 H POC Glucose 186 H 81 Discharge Activity: May Not Drive Call your doctor if you observe: Fever of 101 or Higher, Inability to have a bowel movement, Shortness of breath, Fainting spells, Swelling in the ankles, Chest pain Home Medications: Medications to take at Discharge Gabapentin [Neurontin] 300 mg PO TIDCM 07/15/13 Atorvastatin Calcium [Lipitor] 20 mg PO QHS 11/19/17 Atenolol [Tenormin (beta elizabeth)] 100 mg PO DAILY 11/28/17 tamsulosin 0.4 mg capsule 0.4 mg PO DAILY cap 01/20/18 insulin glargine (U-100) 100 unit/mL (3 mL) subcutaneous pen 4 - 6 unit SQ QHS ml 07/11/18 Calcitriol [Rocaltrol] 0.5 mcg PO DAILY 08/04/18 Aspirin [Aspirin, Baby] 81 mg PO DAILY@0800 08/21/18 Calcium Acetate [Phoslo Gel Cap] 667 mg PO TIDCM #90 capsule 08/25/18 Furosemide [Lasix] 80 mg PO BID@1000,1800 #30 tablet 08/25/18 Insulin Lispro [Humalog KwikPen] See Protocol SQ ACHS insuln.pen 08/25/18 Acetaminophen [Tylenol] 1,000 mg PO Q6H PRN PRN 08/26/18 Bupropion HCl [Bupropion Xl] 300 mg PO DAILY 08/26/18 Amlodipine [Norvasc] 10 mg PO DAILY #0 08/29/18 Hydralazine HCl 25 mg PO TID #90 tablet 08/29/18 Following Prescrptions Were Given to Patient: Hydralazine HCl 25 mg PO TID #90 tablet Primary Care Physician: Anderson Gaston MD [Primary Care Provider] - Please follow up with your Primary Care Physician in: IN 2 Weeks Please Follow Up With: Loida Montiel DO When: On hemodialysis Medical Necessity - Tobacco Use Smoking Status: Never smoker Meaningful Use Info Meaningful Use Diagnoses (Choose all that apply): None applicable Code Visit Inpatient E AND M: 89122 Disch Hosp 08/29/18 1545 <Electronically signed by Sadiq Navarro MD> Date Sadiq Navarro MD Cosigner Signature (if applicable): Date CC: Anderson Gaston MD; Sadiq Navarro MD Signed BEDSIDE GLUCOSE Collected: 08/29/2018 Status: F Source: TALI 12:52 PM [facility] REPOSITORY TYPE CODE TESTS RESULT OUT OF REFERENCE UNITS RANGE LAB L501.080 70-110 mg/dL High BEDSIDE GLU 148 Result Comment: MANAGEMENT OF PATIENT CARE PER NURSING PROTOCOL Performed By: #### L501.080 #### [facility] Point of Care [address] [place] [address] DISCHARGE INSTRUCTION Observed: 08/29/2018 Status: F Source: TALI 11:35 AM [facility] REPOSITORY [facility] Medical Records Department [address] [place] [address] Instructions for Home/Discharge Instructions 08/29/18 1130 MR#: [id number] Acct: [id number] Name: WILLIAMS BURGOS Rep #: [id number] : 1970 47 From: Sadiq Navarro MD PCP: Anderson Gaston MD Status: ADM IN You will use the following diet at home:: Calorie/Carbohydrate Controlled (specify 1200, 1400, etc) - 1800 ada DIET, Cardiac Your food should be the consistency of: Regular Discharge Activity: May Not Drive Call your doctor if you observe: Fever of 101 or Higher, Inability to have a bowel movement, Shortness of breath, Fainting spells, Swelling in the ankles, Chest pain Additional Instructions: Outpatient hemodialysis set up. Allergies/Adverse Reactions: Allergies No Known Allergies Allergy (Verified 08/26/18 15:55) Medications to take at Discharge Gabapentin [Neurontin] 300 mg PO TIDCM 07/15/13 Atorvastatin Calcium [Lipitor] 20 mg PO QHS 11/19/17 Atenolol [Tenormin (beta elizabeth)] 100 mg PO DAILY 11/28/17 tamsulosin 0.4 mg capsule 0.4 mg PO DAILY cap 01/20/18 insulin glargine (U-100) 100 unit/mL (3 mL) subcutaneous pen 4 - 6 unit SQ QHS ml 07/11/18 Calcitriol [Rocaltrol] 0.5 mcg PO DAILY 08/04/18 Aspirin [Aspirin, Baby] 81 mg PO DAILY@0800 08/21/18 Calcium Acetate [Phoslo Gel Cap] 667 mg PO TIDCM #90 capsule 08/25/18 Furosemide [Lasix] 80 mg PO BID@1000,1800 #30 tablet 08/25/18 Insulin Lispro [Humalog KwikPen] See Protocol SQ ACHS insuln.pen 08/25/18 Acetaminophen [Tylenol] 1,000 mg PO Q6H PRN PRN 08/26/18 Bupropion HCl [Bupropion Xl] 300 mg PO DAILY 08/26/18 Amlodipine [Norvasc] 10 mg PO DAILY #0 08/29/18 Hydralazine HCl 25 mg PO TID #90 tablet 08/29/18 The following prescriptions were given: Hydralazine HCl 25 mg PO TID #90 tablet Primary Care Physician: Anderson Gaston MD [Primary Care Provider] - Please follow up with your Primary Care Physician in: IN 2 Weeks Test Results: Test results from this visit will be discussed in further detail at your follow-up appointment, if applicable. Please Follow Up With: Loida Montiel DO When: On hemodialysis 08/29/18 1135 <Electronically signed by Sadiq Navarro MD> Date Sadiq Navarro MD CC: Anderson Gaston MD; Loida Montiel DO; Satish Phan MD Signed BEDSIDE GLUCOSE Collected: 08/29/2018 Status: F Source: TALI 7:00 AM [facility] REPOSITORY TYPE CODE TESTS RESULT OUT OF REFERENCE UNITS RANGE LAB L501.080 70-110 mg/dL High BEDSIDE GLU 127 Result Comment: MANAGEMENT OF PATIENT CARE PER NURSING PROTOCOL Performed By: #### L501.080 #### [facility] Point of Care [address] [place] [address] BEDSIDE GLUCOSE Collected: 08/29/2018 Status: F Source: TALI 6:59 AM [facility] REPOSITORY TYPE CODE TESTS RESULT OUT OF REFERENCE UNITS RANGE LAB L501.080 70-110 mg/dL High BEDSIDE GLU 116 Result Comment: MANAGEMENT OF PATIENT CARE PER NURSING PROTOCOL Performed By: #### L501.080 #### [facility] Point of Care [address] [facility] [address] [place] [address] BASIC METABOLIC Collected: 08/29/2018 Status: F Source: TALI PROFILE (BMP) 6:33 AM [facility] REPOSITORY TYPE CODE TESTS RESULT OUT OF RANGE REFERENCE UNITS LAB L501.0100 74-106 mg/dL High GLU 130 Result Comment: Fasting Glucose result greater than or equal to 126 mg/dL suggests DIABETES MELLITUS per A.D.A. criteria. Please note revised GLUCOSE reference range effective 2017. LAB L501.1000 7-18 mg/dL High BUN 41 LAB L501.1100 0.70-1.30 mg/dL High CREAT,SERUM 4.47 Result Comment: The validity of the calculated GFR AND GFRAA in patients over 70 years has not been determined. Clinical correlation is essential. LAB L501.1110 >60 mL/min Low EST GFR 15 Result Comment: Non- GFR Calc LAB L501.1115 >60 mL/min Low EST GFR - AA 18 Result Comment: GFR Calc LAB L501.1255 ml/min Normal Estimated CRCL 19.34 LAB L501.1300 10-20 RATIO Low BUN/CRE 9.2 LAB L501.2200 8.5-10 mg/dL Low .1 CA 7.6 LAB L501.5300 136-14 mmol/L Normal 5 NA 140 LAB L501.5600 3.5-5. mmol/L Normal 1 K 3.9 LAB L501.5900 98-107 mmol/L Normal CL 106 LAB L501.6100 21.0-3 mmol/L Normal 2.0 CO2 27.0 LAB L501.6200 5-15 Normal GAP 7 Performed By: #### L500.2500 #### [facility] [address] [place], [address] IRON+IRON BINDING Collected: 08/29/2018 Status: F Source: [facility] 6:33 AM [facility] REPOSITORY Order Comment: Comments: draw on dialysis TYPE CODE TESTS RESULT OUT OF RANGE REFERENCE UNITS LAB L503.6075 250-450 ug/dL Low TIBC 242 LAB L503.6150 65-175 ug/dL Low IRON 54 LAB L503.6250 15.0-55.0 % IRON Normal SATURATION 22.3 Performed By: #### L503.6030 #### [facility] [address] [place], [address] CONSULTATION Observed: 08/28/2018 Status: F Source: [place] 9:29 PM [facility] REPOSITORY [facility] Medical Records Department [address] [place] [address] Consultation 08/27/18 0843 MR#: [id number] Acct: [id number] Name: WILLIAMS BURGOS Rep #: [id number] : 1970 47 From: Loida Montiel DO PCP: Anderson Gaston MD Status: ADM IN Y Location: [place] [id number] Consultation - Renal 08/27/18 PCP/ Referring MD: Requesting physician: [] Primary care physician: Anderson Gaston MD Reason for Consultation:: CKD stage 5 - History of Present Illness History of Present Illness: The patient is a 47 year old M with CKD stage 5 due to hx poorly controlled diabetes, hypertension, nephrotic proteinuria recently discharged from [facility] on 08/25 after treated for CHF, SOB, edema. He has chronic leg swelling due to nephrotic proteinuria. 24h urine CRCL 16cc/min collected during last hospitalization. He was scheduled to f/u with me in the office this morning. He went to ER after greens laborer suggested to go to ER when he went in for lab draw yesterday. He had hemoptysis with productive cough. Breathing is stable now. Oxygenation was 88% in ER. He was diuresing well on lasix 80mg. Denied CP, nausea, vomiting. Creatinine increased to 6.6. Will initiate dialysis after tunneled catheter placed by Dr. Phan later this afternoon for worsening renal function and worsening edema, CHF. - Allergies Allergies: Allergies No Known Allergies Allergy (Verified 08/26/18 15:55) - Current Medications Current Medications: Current Medications Acetaminophen (Tylenol) 1,000 mg PO Q6H PRN PRN PRN Reason: PAIN Amlodipine Besylate (Norvasc) 5 mg PO DAILY [facility] Aspirin (Aspirin, Baby) 81 mg PO DAILY@0800 [facility] Atenolol (Tenormin (Beta Elizabeth)) 100 mg PO DAILY [facility] Atorvastatin Calcium (Lipitor) 20 mg PO QHS [facility] Last Admin: 08/26/18 22:14 Dose: 20 mg Bupropion HCl (Wellbutrin Xl) 300 mg PO DAILY [facility] Calcitriol (Rocaltrol) 0.5 mcg PO DAILY [facility] Calcium Acetate (Phoslo Gel Cap) 667 mg PO TIDCM [facility] Epoetin Mika (Procrit) 10,000 units IV X1 ONE Stop: 08/27/18 09:01 Furosemide (Lasix) 60 mg IV BID@1000,1800 [facility] Gabapentin (Neurontin) 300 mg PO TIDCM [facility] Hydralazine HCl (Apresoline) 25 mg PO TID [facility] Last Admin: 08/27/18 06:54 Dose: 25 mg Cefazolin Sodium 2 gm/ Sodium (Chloride) 120 mls @ 240 mls/hr IV SEND TO OR W/PATIENT ONE Stop: 08/27/18 15:59 Insulin Human Lispro (Humalog Armenpen (Bkc)) 0 unit SC ACHS [facility]; Protocol Last Admin: 08/27/18 07:34 Dose: Not Given Magnesium Hydroxide (Milk Of Magnesia) 30 ml PO DAILY PRN PRN PRN Reason: Constipation Nutritional Formula (Nepro Carb Steady) 120 ml PO 4X/DAY [facility] Sodium Chloride () 5 - 15 ml IV UD PRN PRN Reason: SALINE FLUSH Tamsulosin HCl (Flomax) 0.4 mg PO DAILY [facility] - Past Medical History Past Medical History (Chronic Problems): Chronic Problems (Last Reviewed 08/25/18 @ 11:25 [...] AVF rt forearm 08/08/18 - Social History Smoking Status: Never smoker - Family History [...] Reports: Edema. Denies: Chest Pain Respiratory: Reports: Cough, Hemoptysis, Shortness of breath upon exertion, Sputum production, - Gastrointestinal: Denies: Abdominal Pain, Nausea, Vomiting Genitourinary: Reports: - - good urine output. Denies: Dysuria Musculoskeletal: Reports: - - leg swelling Skin: Denies: Rash Neurological: Denies: Balance problems Psychiatric: Denies: Anxiety, Depression Hematologic/ Lymphatic: Reports: Anemia - Physical Exam General: Alert, Oriented x3, Cooperative, No apparent distress HEENT: PERRLA, EOMI Oral: Moist Mucosa Neck: Supple Lungs: Clear to auscultation, Diminished Cardiovascular: Regular rate, No rub noted Abdomen: Bowel Sounds Present, Soft, Non Tender, Non-Distended, Obese Extremities: Edema - 1+ pitting BLE, - - AVF rt forearm +thrill/bruit Skin: No rashes Lymphatic: No Cervical, Supraclavicular, or Inguinal Adenopathy Neurological: Cranial nerves II-XII grossly intact, - - no tremor Psych/Mental Status: Normal Affect, Appropriate, Alert and oriented to time, place, person, mood and affect Vital Signs Temp Pulse Resp BP Pulse Ox 98.6 F 75 16 150/82 H 94 08/27/18 03:17 08/27/18 06:54 08/27/18 03:17 08/27/18 06:52 08/27/18 07:40 Oxygen Flow Rate (L/min) 2 Oxygen Delivery Method Nasal Cannula Weight: 107 kg Body Mass Index (BMI) 36.3 Finger Stick Blood Glucose 149 Intake and Output for Last 24 Hours Intake Total 240 / 240 Output Total 600 / 600 0 / 0 Balance -360 / -360 0 / 0 Laboratory Tests Past 24 Hrs WBC 7.7 RBC 3.28 L Hgb 9.8 L Hct 29.3 L WBC RBC Hgb Hct MCV POC Glucose POC Glucose 111 H 177 H Clinical Impression(s) from Imaging Studies Chest X-Ray 08/26/18 16:32 IMPRESSION: 1. Small left pleural effusion. 2. Bibasilar pneumonia. Electronically Signed: Anita Cerna MD at 17:59 EST Tel , Service support , Assessment/Plan All Active Problems (Last Reviewed 08/25/18 @ 11:25 by [...] Hypertensive emergency (Resolved) Hypokalemia (Resolved) 1. CKD Stage 5 to ESRD. Creatinine rising on diuretics, persistent edema with CHF. Will initiate dialysis today after tunneled catheter placement. AVF rt forearm 08/08 not ready for use. 2. Anemia check iron studies, start epo, iv iron on dialysis 3. DM2 primary mgmt 4. HTN stable BP 5. CHF diuresing on lasix 6. Edema continue lasix 7. Hemoptysis resolved. Check sputum c/s for PNA 8. SHPT continue calcitriol 08/28/182128 <Electronically signed by Loida Montiel DO> Date Loida Montiel DO Cosigner Signature (if applicable): Date CC: Anderson Gaston MD; Loida Montiel DO; Satish Phan MD Signed BEDSIDE GLUCOSE Collected: 08/28/2018 Status: F Source: TALI 9:20 PM [facility] REPOSITORY TYPE CODE TESTS RESULT OUT OF REFERENCE UNITS RANGE LAB L501.080 70-110 mg/dL High BEDSIDE GLU 180 Result Comment: MANAGEMENT OF PATIENT CARE PER NURSING PROTOCOL Performed By: #### L501.080 #### [facility] Point of Care [address] [place] [address] BEDSIDE GLUCOSE Collected: 08/28/2018 Status: F Source: TALI 4:39 PM [facility] REPOSITORY TYPE CODE TESTS RESULT OUT OF REFERENCE UNITS RANGE LAB L501.080 70-110 mg/dL High BEDSIDE GLU 186 Result Comment: MANAGEMENT OF PATIENT CARE PER NURSING PROTOCOL Performed By: #### L501.080 #### [facility] Point of Care [address] [place] [address] BEDSIDE GLUCOSE Collected: 08/28/2018 Status: F Source: TALI 11:44 AM [facility] REPOSITORY TYPE CODE TESTS RESULT OUT OF RANGE REFERENCE UNITS LAB L501.080 70-110 mg/dL Normal BEDSIDE GLU 81 Result Comment: MANAGEMENT OF PATIENT CARE PER NURSING PROTOCOL Performed By: #### L501.080 #### [facility] Point of Care [address] [place] [address] BEDSIDE GLUCOSE Collected: 08/28/2018 Status: F Source: TALI 6:52 AM [facility] REPOSITORY TYPE CODE TESTS RESULT OUT OF RANGE REFERENCE UNITS LAB L501.080 70-110 mg/dL Normal BEDSIDE GLU 92 Result Comment: MANAGEMENT OF PATIENT CARE PER NURSING PROTOCOL Performed By: #### L501.080 #### [facility] Point of Care [address] [place] [address] CBC W/DIFF, AUTOMATED Collected: 08/28/2018 Status: F Source: TALI 5:00 AM [facility] REPOSITORY TYPE CODE TESTS RESULT OUT OF RANGE REFERENCE UNITS LAB L100.1000 4.4-11.0 K/mm3 Normal WBC 6.0 LAB L100.1200 4.6-6.2 M/mm3 Low RBC 3.25 LAB L100.1300 13.0-16.5 g/dl Low HGB 9.7 LAB L100.1400 40-54 % Low HCT 29.5 LAB L100.1500 80-94 fL Normal MCV 90.8 LAB L100.1600 27.0-32.0 pg Normal MCH 29.8 LAB L100.1700 32-36 g/gl Normal MCHC 32.9 LAB L100.1810 11.6-14.6 % Normal RDW CV 12.9 LAB L100.1820 35.1-43.9 fl Normal RDW SD 41.8 LAB L100.1900 150-450 K/mm3 Normal PLT 201 LAB L100.2000 6.2-12.0 fl Normal MPV 10.2 LAB L100.2100 47-70 % Normal NEUT% 69.9 LAB L100.2200 19-41 % Low LY% 18.2 LAB L100.2300 0-10 % Normal MONO% 9.7 LAB L100.2400 0-5 % Normal EO% 1.5 LAB L100.2500 0-1 % Normal BASO% 0.5 LAB L100.2550 0.0-0.9 % Normal IM GRAN % 0.200 Result Comment: IG% - Immature Granulocytes (promyelocytes, myelocytes and metamyelocytes) > 1% indicates that a LEFT SHIFT is Present. LAB L100.2620 2.0-7.7 X10 3/uL Normal Absolute Neut 4.2 LAB L100.2720 0.83-4.51 X10 3/ul Normal Absolute Lymph 1.09 Performed By: #### L100.0100 #### [facility] [place], [address] BASIC METABOLIC Collected: 08/28/2018 Status: F Source: TALI PROFILE (BMP) 5:00 AM [facility] REPOSITORY TYPE CODE TESTS RESULT OUT OF RANGE REFERENCE UNITS LAB L501.0100 74-106 mg/dL Normal GLU 95 Result Comment: Please note revised GLUCOSE reference range effective 2017. LAB L501.1000 7-18 mg/dL High BUN 58 LAB L501.1100 0.70-1.30 mg/dL High CREAT,SERUM 5.17 Result Comment: The validity of the calculated GFR AND GFRAA in patients over 70 years has not been determined. Clinical correlation is essential. LAB L501.1110 >60 mL/min Low EST GFR 13 Result Comment: Non- GFR Calc LAB L501.1115 >60 mL/min Low EST GFR - AA 15 Result Comment: GFR Calc LAB L501.1255 ml/min Normal Estimated CRCL 16.72 LAB L501.1300 10-20 RATIO Normal BUN/CRE 11.2 LAB L501.2200 8.5-10 mg/dL Low .1 CA 7.6 LAB L501.5300 136-14 mmol/L Normal 5 NA 142 LAB L501.5600 3.5-5. mmol/L Normal 1 K 4.4 LAB L501.5900 98-107 mmol/L Normal CL 107 LAB L501.6100 21.0-3 mmol/L Normal 2.0 CO2 26.0 LAB L501.6200 5-15 Normal GAP 9 Performed By: #### L500.2500 #### [facility] [address] [place], [place], [id number] BEDSIDE GLUCOSE Collected: 08/27/2018 Status: F Source: TALI 9:24 PM [facility] REPOSITORY TYPE CODE TESTS RESULT OUT OF RANGE REFERENCE UNITS LAB L501.080 70-110 mg/dL Normal BEDSIDE GLU 91 Result Comment: MANAGEMENT OF PATIENT CARE PER NURSING PROTOCOL Performed By: #### L501.080 #### [facility] Point of Care [address] [facility] [place], [place] [address] BEDSIDE GLUCOSE Collected: 08/27/2018 Status: F Source: [place] 5:21 PM [facility] REPOSITORY TYPE CODE TESTS RESULT OUT OF RANGE REFERENCE UNITS LAB L501.080 70-110 mg/dL Normal BEDSIDE GLU 83 Result Comment: MANAGEMENT OF PATIENT CARE PER NURSING PROTOCOL Performed By: #### L501.080 #### [facility] Point of Care [address] [facility] [place] [address] OPERATIVE REPORT Observed: 08/27/2018 Status: F Source: TALI 4:55 PM [facility] REPOSITORY [facility] Medical Records Department [address] [place] [address] Operative Report 08/27/18 1652 MR#: [id number] Acct: [id number] Name: WILLIAMS BURGOS Rep #: [id number] : 1970 47 From: Satish Phan MD PCP: Anderson Gaston MD Status: ADM IN Y Location: [place] [address] Problem List (1) Chronic renal failure, stage 5 Status: Chronic Report of Operation Date of Procedure: 08/27/18 Pre-Operative Diagnosis: Acute and chronic stage V renal failure Post-Operative Diagnosis: Same Surgery/Procedure Performed:: Right internal jugular tunneled pre-curved 19 cm palindrome catheter Description of Surgical Findings:: Timeout and informed consent was obtained. 47 old gent was taken the operating placement table underwent monitored anesthesia care. Ancef 2 g given intravenous preoperatively. The right neck and chest were sterilely prepped and draped. Under ultrasound guidance 1% lidocaine mixed 50-50 with 0.5% Marcaine was used as a local anesthetic. A total of 18 cc was used. Under ultrasound guidance local was instilled. Micropuncture needle inserted in the right internal jugular vein followed by salvage wire. Then the wire was upgraded to no 3 5 J-wire. Local was instilled down upon the chest wall. The tubing was tunneled from the chest to the neck site. Fluoroscopy demonstrated good positioning of the J-wire. Serial dilatation was performed. The sheath dilator unit was inserted. The dilator and wire removed. The catheter was advanced through the sheath. The sheath was split. The catheter was nicely positioned at the SVC atrial junction with a good curvilinear position. It aspirated easily. It was flushed with saline and then 2 cc per channel heparinized saline. The counterincision was closed with interrupted 5-0 Vicryl subdermal stitch. The catheter was secured to skin with interrupted 3-0 nylon. Silver impregnated dressing was applied. Telfa OpSite dressing was applied to the neck. Sponge and instrument and needle counts were reported to the surgeon to be correct. Blood loss was minimal no apparent complication he was taken to the recovery area in satisfactory condition stat portable chest x-ray is pending. Satish Phan M.D., F.A.C.S. Type of Anesthesia:: Local MAC Anesthesiologist: Armani Artis 08/27/18 1655 <Electronically signed by Satish Phan MD> Date Satish Phan MD CC: Anderson Gaston MD; Loida Montiel DO; Satish Phan MD Signed CHEST 1 VIEW Observed: 08/27/2018 Status: F Source: [place] (PORTABLE) 4:06 PM [facility] REPOSITORY [facility] Imaging Services [address] [place] [address] Chest 1 View (Portable) MR#: [id number] Acct: [id number] Name: WILLIAMS BURGOS Rep #: [id number] : 1970 M 47 From: Marcio Thompson DO PCP: Anderson Gaston MD Status: ADM IN Study: Chest 1 View (Portable) Date of Exam: 08/27/18 Exam# [id number] Ordering Dr: Satish Phan MD STUDY: X-RAY CHEST REASON FOR EXAM: Male, 47 years old. Line placement TECHNIQUE: Single frontal view COMPARISON: August 26, 2018 FINDINGS: Right-sided dual-lumen venous catheter with tip in the distal SVC. The lungs are not fully expanded. Bibasal infiltrates and mild left pleural effusion. No significant interval changes. Possible developing left upper lobe infiltrate since the previous study. Cardiomegaly. Normal mediastinum and reena. Normal visualized pulmonary arteries. Normal visualized aortic arch and descending thoracic aorta. Normal visualized thoracic spine. Normal visualized ribs, clavicles, and shoulders. There is no demonstrated abnormality of the visualized soft tissue structures of the upper abdomen. RAD/Chest 1 View (Portable) IMPRESSION: Cardiomegaly. Bibasilar infiltrates and left effusion appear to be stable. Possible new left upper lobe infiltrate. Electronically Signed: Marcio DO Jay at 20:02 EST Tel [phone], Service support , CC: Anderson Gaston MD; Satish Phan MD Rig Supervisor: Signed BEDSIDE GLUCOSE Collected: 08/27/2018 Status: F Source: TALI 2:40 PM [facility] REPOSITORY TYPE CODE TESTS RESULT OUT OF RANGE REFERENCE UNITS LAB L501.080 70-110 mg/dL Normal BEDSIDE GLU 93 Result Comment: MANAGEMENT OF PATIENT CARE PER NURSING PROTOCOL Performed By: #### L501.080 #### [facility] Point of Care [address] [place], [place] [id number] HEPATITIS B SURFACE Collected: 08/27/2018 Status: F Source: TALI AG 1:09 PM [facility] REPOSITORY TYPE CODE TESTS RESULT OUT OF RANGE REFERENCE UNITS LAB L3100.0400 Negative Normal HB Negative SURF AG Result Comment: Performed at: - [facility] [id number] Flower Grower: Timothy Da Silva PhD, Phone: [phone] Performed By: #### L3100.0390, L3100.0528, L3100.0625 #### [facility] (refer to report for specific site) refer to report for address and phone number HEP B SURFACE Collected: 08/27/2018 Status: F Source: TALI ANTIBODIES 1:09 PM [facility] REPOSITORY TYPE CODE TESTS RESULT OUT OF RANGE REFERENCE UNITS LAB L3100.0528 . Normal Hep B Non Reactive Nelida AB Result Comment: Non Reactive: Inconsistent with immunity, less than 10 mIU/mL Reactive: Consistent with immunity, greater than 9.9 mIU/mL Performed By: #### L3100.0390, L3100.0528, L3100.0625 #### [facility] (refer to report for specific site) refer to report for address and phone number HEPATITIS C ANTIBODIES Collected: 08/27/2018 Status: F Source: TALI 1:09 PM [facility] REPOSITORY TYPE CODE TESTS RESULT OUT OF RANGE REFERENCE UNITS LAB L3100.0650 0.0-0.9 s/co ratio Normal HEP C AB <0.1 Result Comment: Negative: < 0.8 Indeterminate: 0.8 - 0.9 Positive: > 0.9 The CDC recommends that a positive HCV antibody result be followed up with a HCV Nucleic Acid Amplification test (635312). Performed By: #### L3100.0390, L3100.0528, L3100.0625 #### [facility] (refer to report for specific site) refer to report for address and phone number BEDSIDE GLUCOSE Collected: 08/27/2018 Status: F Source: TALI 11:25 AM [facility] TYPE CODE TESTS RESULT OUT OF RANGE REFERENCE UNITS LAB L501.080 70-110 mg/dL Normal BEDSIDE GLU 96 Result Comment: MANAGEMENT OF PATIENT CARE PER NURSING PROTOCOL Performed By: #### L501.080 #### [facility] Point of Care [address] [facility] [place] [address] BEDSIDE GLUCOSE Collected: 08/27/2018 Status: F Source: TALI 7:00 AM [facility] TYPE CODE TESTS RESULT OUT OF REFERENCE UNITS RANGE LAB L501.080 70-110 mg/dL High BEDSIDE GLU 111 Result Comment: MANAGEMENT OF PATIENT CARE PER NURSING PROTOCOL Performed By: #### L501.080 #### [facility] Point of Care [address] [address] HISTORY AND PHYSICAL Observed: 08/27/2018 Status: F Source: [place] EXAM 6:47 AM [facility] Medical Records Department [address] [place] [address] History and Physical 08/26/182030 MR#: [id number] Acct: [id number] Name: WILLIAMS BURGOS Rep #: [id number] : 1970 47 From: Shruti Jara MD PCP: Anderson Gaston MD Status: ADM FRANCISCA Y Location: [place] [address] History of Present Illness Date of Admission: 08/26/18 Chief Complaint: hemoptysis, shortness of breath The patient is a 47 year old M past medical history of CKD stage V, hypertension and diabetes. He was admitted through the ED on 08/26/2018 with a complaint of shortness of breath, coughing up of blood and swelling of his lower extremities of one day duration. Patient was just discharged from [facility] on 08/25/2018 after he was admitted for edema and shortness of breath which was thought to be due to worsening of his CKD. He had been scheduled to have a dialysis catheter placed on Saturday. However he deteriorated and swelling of his lower extremities worsen after he went home. He had assisted shortness of breath with orthopnea and PND. He also coughed up blood twice. He therefore decided to come back to the ED. The ED vitals were significant for blood pressure of 171/78 but otherwise unremarkable he was saturating at 96% on 2 L of oxygen. CBC was significant for hemoglobin of 9.8 and BMP showed creatinine of 6.49 with BUN of 78 and potassium of 5.1. BNP was 810. Chest x-ray showed small left pleural effusion and mild opacities in the lung bases suspicious for pneumonia. He is been admitted to be managed for fluid overload likely due to worsening of CKD stage 5. [] Past Medical History Past Medical History (Chronic Problems): Chronic Problems (Last Reviewed 08/25/18 @ 11:25 [...] E87.6 Allergies No Known Allergies Allergy (Verified 08/26/18 15:55) Home Medications: Ambulatory Orders Medication Instructions Recorded Gabapentin [Neurontin] 300 mg PO TIDCM 07/15/13 Atorvastatin Calcium [Lipitor] 20 mg PO QHS 11/19/17 Surgical History: Surgical History (Last Reviewed 08/25/18 @ 11:25 by Minerva Sexton PA-C) History of appendectomy Z90.49 History of eye surgery Z98.890 Lt retinal tear History of cholecystectomy Z90.49 Surgical History: cholecystectomy, - - AVF rt forearm 08/08/18 Smoking Status: Never smoker - *Family History Maternal Family History: Family [...] kidney disease Review of Systems Constitutional: Reports: Malaise. Denies: Chills, Fever, Weight Change Eyes: Denies: Blurred vision HEENT: Denies: Head Aches, Sinus Congestion, Sinus Drainage Cardiovascular: Reports: Edema. Denies: Chest Pain, Palpitations Respiratory: Reports: Cough, Hemoptysis, Shortness of Breath, Shortness of breath at rest, Shortness of breath upon exertion. Denies: Sputum production Gastrointestinal: Denies: Abdominal Pain, Nausea, Vomiting Genitourinary: Denies: Dysuria Musculoskeletal: Denies: Joint Pain, Joint Tenderness Skin: Denies: Rash, Wounds Neurological: Denies: Numbness, Tingling, Focal weakness Psychiatric: Denies: Anxiety, Depression, Homicidal Ideations, Suicidal Ideations Hematologic/ Lymphatic: Denies: Easy Bruising, Easy Bleeding VTE Information - Inpt Only VTE Present on Admission: No VTE Mechan Device Prophylaxis: SCD's - Physical Exam General: Alert, Oriented x3, Cooperative, No apparent distress HEENT: Atraumatic, PERRLA, EOMI, Normocephalic Oral: Moist Mucosa Neck: Supple, No JVD, Negative Carotid Bruits Lungs: - - decreased breath sounds bibasally and in mid lung faye. No wheezing or crackles auscultated Cardiovascular: Regular rate, Regular Rhythm, Normal S1, Normal S2, No murmurs Abdomen: Bowel Sounds Present, Soft, Non Tender Extremities: No clubbing, No cyanosis, - - 2+ edema of LEs; has compression stockings on Skin: No rashes, No breakdown Musculoskeletal: No Tenderness to Palpation of Joints or Extremities Lymphatic: No Cervical, Supraclavicular, or Inguinal Adenopathy Neurological: Cranial nerves II-XII grossly intact, Neuro grossly intact, Motor Exam 5/5 strength throughout Psych/Mental Status: Normal Affect, Appropriate, Alert and oriented to time, place, person, mood and affect Vital Signs Temp Pulse Resp BP Pulse Ox 97.8 F 75 18 171/78 H 96 08/26/18 15:53 08/26/18 20:23 08/26/18 20:23 08/26/18 20:23 08/26/18 20:23 Oxygen Flow Rate (L/min) 2 Oxygen Delivery Method Nasal Cannula Weight: 241 lb 6.499 oz Body Mass Index (BMI) 36.7 Finger Stick Blood Glucose 149 Laboratory Tests Past 24 Hrs WBC 7.7 RBC 3.28 L Diagnostic Data Chest X-Ray 08/26/18 16:32 IMPRESSION: 1. Small left pleural effusion. 2. Bibasilar pneumonia. Electronically Signed: Anita Cerna MD at 17:59 EST Tel , Service support , Assessment/Plan All Active Problems (Last Reviewed 08/25/18 @ 11:25 by [...] leg (Resolved) Hypertensive emergency (Resolved) Hypokalemia (Resolved) 47-year-old male admitted with a complaint of hemoptysis and worsening shortness of breath as well as lower extremity edema. 1. Shortness of breath likely due to acute diastolic heart failure and progression of CKD V * was just discharged 1 day ago after being admitted for similar symptoms * BNP is 810 * Cr up to 6.49; eGFR is 10 * CXR shows bibasilar opacities; but clinically patient appears fluid overloaded and doesnt have any other signs or symptoms of pneumonia. I think his symptoms and CXR findings are all due to fluid overload from CKD V and heart failure * admit to PCU with telemetry * given IV lasix 40mg once in ED; will continue IV lasix 40mg bid * nephrology consult; will likely need dialysis catheter placed tomorrow so dialysis can be initiated * 2. Hemoptysis likely due to CKD V and uremia * coughed up blood twice; currently asymptomatic * will monitor closely * 3. CKD IV; as under 1. 4. Anemia of chronic disease: hb is 9.8. Likely due to CKD; will monitor 5. 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 HFpEF: as under 1. Known EF of 65% per recent echo. Management as under 1. 7. Anxiety adn depression: on bupropion Code status: full code * patient counseled extensively about different types of CODE STATUS including full code, DNR CCA and DNR CCA. Patient elects to be full code. Total zsoy-ah-mmpc time 16 minutes. Code Visit Inpatient E AND M: 73070 Init Hosp L3 Procedures: 05620 Advncd Care Plan 30 Min 08/27/18 0647 <Electronically signed by Shruti Jara MD> Date Shruti Jara MD Cosigner Signature: Date (if applicable) CC: Anderson Gaston MD; Shruti Jara MD Signed CBC W/DIFF, AUTOMATED Collected: 08/27/2018 Status: F Source: TALI 6:40 AM [facility] REPOSITORY TYPE CODE TESTS RESULT OUT OF RANGE REFERENCE UNITS LAB L100.1000 4.4-11.0 K/mm3 Normal WBC 7.5 LAB L100.1200 4.6-6.2 M/mm3 Low RBC 2.89 LAB L100.1300 13.0-16.5 g/dl Low HGB 8.5 LAB L100.1400 40-54 % Low HCT 26.8 LAB L100.1500 80-94 fL Normal MCV 92.7 LAB L100.1600 27.0-32.0 pg Normal MCH 29.4 LAB L100.1700 32-36 g/gl Low MCHC 31.7 LAB L100.1810 11.6-14.6 % Normal RDW CV 13.1 LAB L100.1820 35.1-43.9 fl Normal RDW SD 42.9 LAB L100.1900 150-450 K/mm3 Normal PLT 210 LAB L100.2000 6.2-12.0 fl Normal MPV 10.0 LAB L100.2100 47-70 % High NEUT% 72.9 LAB L100.2200 19-41 % Low LY% 17.2 LAB L100.2300 0-10 % Normal MONO% 7.8 LAB L100.2400 0-5 % Normal EO% 1.6 LAB L100.2500 0-1 % Normal BASO% 0.4 LAB L100.2550 0.0-0.9 % Normal IM GRAN % 0.100 Result Comment: IG% - Immature Granulocytes (promyelocytes, myelocytes and metamyelocytes) > 1% indicates that a LEFT SHIFT is Present. LAB L100.2620 2.0-7.7 X10 3/uL Normal Absolute Neut 5.5 LAB L100.2720 0.83-4.51 X10 3/ul Normal Absolute Lymph 1.29 Performed By: #### L100.0100 #### [facility] [address] [place], [place], [address] RENAL PROFILE Collected: 08/27/2018 Status: F Source: LAKIN 6:40 AM [facility] REPOSITORY TYPE CODE TESTS RESULT OUT OF RANGE REFERENCE UNITS LAB L501.0100 74-106 mg/dL Normal GLU 106 Result Comment: Fasting Glucose result from 100 to 125 mg/dL suggests IMPAIRED HOMEOSTASIS per A.D.A. criteria. Please note revised GLUCOSE reference range effective 2017. LAB L501.1000 7-18 mg/dL High BUN 80 LAB L501.1100 0.70-1.30 mg/dL High CREAT,SERUM 6.61 Result Comment: The validity of the calculated GFR AND GFRAA in patients over 70 years has not been determined. Clinical correlation is essential. LAB L501.1110 >60 mL/min Low EST GFR 10 Result Comment: Non- GFR Calc LAB L501.1115 >60 mL/min Low EST GFR - AA 12 Result Comment: GFR Calc LAB L501.1255 ml/min Normal Estimated CRCL 13.08 LAB L501.1300 10-20 RATIO Normal BUN/CRE 12.1 LAB L501.1800 3.2-5. g/dL Low 0 ALB 2.1 LAB L501.2200 8.5-10 mg/dL Low .1 CA 8.0 LAB L501.2300 2.5-4. mg/dL High 9 PHOS 6.3 LAB L501.5300 136-14 mmol/L High 5 NA 146 LAB L501.5600 3.5-5. mmol/L High 1 K 5.2 LAB L501.5900 98-107 mmol/L High CL 114 LAB L501.6100 21.0-3 mmol/L Normal 2.0 CO2 21.0 Performed By: #### L500.3600 #### [facility] [address] [place], [address] EMERGENCY DEPARTMENT Observed: 08/27/2018 Status: F Source: LAKIN SUMMARY 1:57 AM [facility] REPOSITORY [facility] Medical Records Department [address] [place] [address] Emergency Department Summary 08/27/18 0134 MR#: [id number] Acct: [id number] Name: WILLIAMS BURGOS Rep #: [id number] : 1970 47 From: Allyssa Johnson MD PCP: Anderson Gaston MD Status: ADM FRANCISCA - ER Visit Summary Date of Service: 08/26/18 Chief Complaint: Shortness of breath, hemoptysis History of Present Illness: The patient is a 47 M with a history of chronic renal failure, diabetes, hypertension, high cholesterol, CHF. Patient was admitted August 21- for anasarca and renal failure. Today he [...] renal failure This note was generated with [employer] dictation software. It may contain incorrect words, [...] your Primary Care Provider. Call [facility] ([phone]) or report to the closest Emergency Room. Call 911 if necessary. 08/27/18 0157 <Electronically signed by Allyssa Johnson MD> Date Allyssa Johnson MD Cosigner Signature (If Indicated): Date CC: Anderson Gaston MD BEDSIDE GLUCOSE Collected: 08/26/2018 Status: F Source: LAKIN 10:11 PM [facility] REPOSITORY TYPE CODE TESTS RESULT OUT OF REFERENCE UNITS RANGE LAB L501.080 70-110 mg/dL High BEDSIDE GLU 177 Result Comment: MANAGEMENT OF PATIENT CARE PER NURSING PROTOCOL Performed By: #### L501.080 #### [facility] Point of Care [address] [place], [place] [address] PROTHROMBIN TIME W/INR Collected: 08/26/2018 Status: F Source: TALI 5:50 PM [facility] REPOSITORY Order Comment: REDRAW. PREVIOUS SPECIMEN REJECTED DUE TO QNS. 08/26/18 5203 Clementina Garcia. TYPE CODE TESTS RESULT OUT OF RANGE REFERENCE UNITS LAB L300.4150 11.7-14.9 SECONDS Normal PROTIME 13.1 LAB L300.4200 Normal INR 1.0 Performed By: #### L300.3900, L300.4310 #### [facility] [address] [place], [address] PARTIAL THROMBOPLAST Collected: 08/26/2018 Status: F Source: LAKIN TIME 5:50 PM [facility] REPOSITORY Order Comment: REDRAW. PREVIOUS SPECIMEN REJECTED DUE TO QNS. 08/26/18 1719 Clementina Garcia. TYPE CODE TESTS RESULT OUT OF RANGE REFERENCE UNITS LAB L300.4310 24.1-36.2 Seconds Normal PTT 32.6 Performed By: #### L300.3900, L300.4310 #### [facility] [address] [place], [place], [address] CBC W/DIFF, AUTOMATED Collected: 08/26/2018 Status: F Source: LAKIN 4:50 PM [facility] REPOSITORY TYPE CODE TESTS RESULT OUT OF [...] Lymph 1.26 Performed By: #### L100.0100 #### [facility] [address] [place], [place], [address] BASIC METABOLIC Collected: 08/26/2018 Status: F Source: LAKIN PROFILE (BMP) 4:50 PM [facility] REPOSITORY TYPE CODE TESTS RESULT OUT OF [...] GAP 10 Performed By: #### L500.2500 #### [facility] [address] [place], [address] BNP,B-TYPE NATRIURETIC Collected: 08/26/2018 Status: F Source: LAKIN PEPTIDE 4:50 PM [facility] REPOSITORY TYPE CODE TESTS RESULT OUT OF RANGE REFERENCE UNITS LAB L503.6620 0-100 pg/mL High B-TYPE 810.1 ZARI PEP Performed By: #### L503.6620 #### [facility] [address] [place], [address] CHEST PA AND LATERAL Observed: 08/26/2018 Status: F Source: LAKIN 4:33 PM [facility] REPOSITORY [facility] Imaging Services [address] [place] [address] Chest PA and Lateral MR#: [id number] Acct: [id number] Name: WILLIAMS BURGOS Rep #: [id number] : 1970 M 47 From: Anita Cerna MD PCP: Anderson Gaston MD Status: REG ER Study: Chest PA and Lateral Date of Exam: 08/26/18 Exam# [id number] Ordering Dr: Allyssa Johnson MD STUDY: X-RAY [...] CC: Anderson Gaston MD; Allyssa Johnson MD Rig Supervisor: Signed DISCHARGE SUMMARY Observed: 08/25/2018 Status: F Source: LAKIN 5:13 PM [facility] REPOSITORY [facility] Medical Records Department [address] [place] [address] Discharge Summary 08/25/18 1653 MR#: [id number] Acct: [id number] Name: WILLIAMS BURGOS Rep #: [id number] : 1970 47 From: Sadiq Navarro MD PCP: Anderson Gaston MD Status: ADM IN Y Location: [place] [address] Discharge Date and Diagnosis Date of Admission: [...] after Kayexalate. Discussed with Dr. Montiel and huma for discharge. 3. Hypertensive urgency, uncontrolled, increase [...] noncompliance. Kayexalate [address] Montiel. Repeat BMP shows K5.2. - Physical Exam [...] applicable Code Visit Inpatient E AND M: 29827 Disch Hosp 08/25/18 1713 <Electronically signed by Sadiq Navarro MD> Date Sadiq Navarro MD Cosigner Signature (if applicable): Date CC: Anderson Gaston MD; Sadiq Navarro MD Signed BEDSIDE GLUCOSE Collected: 08/25/2018 Status: F Source: TALI 5:08 PM [facility] REPOSITORY TYPE CODE TESTS RESULT OUT OF REFERENCE UNITS RANGE LAB L501.080 70-110 mg/dL High BEDSIDE GLU 205 Result Comment: MANAGEMENT OF PATIENT CARE PER NURSING PROTOCOL Performed By: #### L501.080 #### [facility] Point of Care [address] [place] [address] DISCHARGE INSTRUCTION Observed: 08/25/2018 Status: F Source: LAKIN 4:43 PM [facility] REPOSITORY [facility] Medical Records Department [address] [place] [address] Instructions for Home/Discharge Instructions 08/25/18 1615 MR#: [id number] Acct: [id number] Name: WILLIAMS BURGOS Rep #: [id number] : 1970 47 From: Sadiq Navarro MD [...] RENAL PROFILE Collected: 08/25/2018 Status: F Source: LAKIN 1:40 PM [facility] REPOSITORY TYPE CODE TESTS RESULT OUT OF [...] CO2 22.0 Performed By: #### L500.3600 #### [facility] [address] [place], [address] CONSULTATION Observed: 08/25/2018 Status: F Source: LAKIN 12:05 PM [facility] REPOSITORY [facility] Medical Records Department [address] [place] [address] Consultation 08/25/18 1057 MR#: [id number] Acct: [id number] Name: WILLIAMS BURGOS Rep #: [id number] : 1970 47 From: Minerva Sexton PA-C PCP: Anderson Gaston MD Status: ADM IN Location: [place] [address] ADDENDUM by Minerva Sexton PA-C on 08/25/18 [...] He follows with Dr. Cabral and Aj Faith NP. He denies previous stroke, myocardial infarction, blood clots. Patient recently had a stage I right forearm radiocephalic AV fistula creation by Dr. Phan on 08/08. Patient is not currently on dialysis. 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 Patient is a diabetic. He was diagnosed [...] records. Code Visit Office Visits / Consults: [id number] IP Consult L3 08/25/18 1135 <Electronically signed by Minerva Sexton PA-C> Date Minerva Sexton PA-C Cosigner Signature (if applicable): Date CC: Anderson Gaston MD; Loida Montiel DO Signed BEDSIDE GLUCOSE Collected: 08/25/2018 Status: F Source: TALI 11:57 AM [facility] REPOSITORY TYPE CODE TESTS RESULT OUT OF REFERENCE UNITS RANGE LAB L501.080 70-110 mg/dL High BEDSIDE GLU 131 Result Comment: MANAGEMENT OF PATIENT CARE PER NURSING PROTOCOL Performed By: #### L501.080 #### [facility] Point of Care [address] [place] [address] 12 LEAD ELECTROCARDIOGRAM Observed: 08/25/2018 Status: F Source: TALI 7:48 AM [facility] REPOSITORY [facility] Cardiovascular Services [address] [place] [address] 12 Lead EKG 08/22/18 0423 MR#: [id number] Acct: [id number] Name: WILLIAMS BURGOS Rep #: [id number] : 1970 47 From: Tylor Rudd MD Attending Dr: Sadiq Navarro MD Status: ADM IN Ordering Dr: Oscar Ag MD Date: 08/22/18 Location: [facility] Sex: M C Admitted: 08/21/18 Test [...] COMPARISON REQUIRED, DATA IS UNCONFIRMED Confirmed by BLAIRE NORTON, TYLOR ([id number]), art editor TOBY WATSON ([id number]) on 08/25/2018 7:47:56 AM Referred By: CECI Confirmed By:TYLOR RUDD MD 08/25/18 0747 Date Tylor Rudd MD CC: Anderson Gaston MD; Oscar Ag MD; Sadiq Navarro MD Signed BEDSIDE GLUCOSE Collected: 08/25/2018 Status: F Source: TALI 6:51 AM [facility] REPOSITORY TYPE CODE TESTS RESULT OUT OF RANGE REFERENCE UNITS LAB L501.080 70-110 mg/dL Normal BEDSIDE GLU 108 Result Comment: MANAGEMENT OF PATIENT CARE PER NURSING PROTOCOL Performed By: #### L501.080 #### [facility] Point of Care [address] [place] [address] RENAL PROFILE Collected: 08/25/2018 Status: F Source: TALI 6:10 AM [facility] REPOSITORY TYPE CODE TESTS RESULT OUT OF [...] CO2 21.0 Performed By: #### L500.3600 #### [facility] [address], [address] BEDSIDE GLUCOSE Collected: 08/24/2018 Status: F Source: TALI 10:13 PM [facility] REPOSITORY TYPE CODE TESTS RESULT OUT OF REFERENCE UNITS RANGE LAB L501.080 70-110 mg/dL High BEDSIDE GLU 152 Result Comment: MANAGEMENT OF PATIENT CARE PER NURSING PROTOCOL Performed By: #### L501.080 #### [facility] Point of Care [address] [place] [address] BEDSIDE GLUCOSE Collected: 08/24/2018 Status: F Source: TALI 4:52 PM [facility] REPOSITORY TYPE CODE TESTS RESULT OUT OF REFERENCE UNITS RANGE LAB L501.080 70-110 mg/dL High BEDSIDE GLU 187 Result Comment: MANAGEMENT OF PATIENT CARE PER NURSING PROTOCOL Performed By: #### L501.080 #### [facility] Point of Care [address] [place] [address] BEDSIDE GLUCOSE Collected: 08/24/2018 Status: F Source: TALI 11:21 AM [facility] REPOSITORY TYPE CODE TESTS RESULT OUT OF REFERENCE UNITS RANGE LAB L501.080 70-110 mg/dL High BEDSIDE GLU 142 Result Comment: MANAGEMENT OF PATIENT CARE PER NURSING PROTOCOL Performed By: #### L501.080 #### [facility] Point of Care [address] [place] [address] BEDSIDE GLUCOSE Collected: 08/24/2018 Status: F Source: TALI 6:39 AM [facility] REPOSITORY TYPE CODE TESTS RESULT OUT OF RANGE REFERENCE UNITS LAB L501.080 70-110 mg/dL Normal BEDSIDE GLU 93 Result Comment: MANAGEMENT OF PATIENT CARE PER NURSING PROTOCOL Performed By: #### L501.080 #### [facility] Point of Care [address] [place] [address] CBC-COMPLETE BLOOD CNT Collected: 08/24/2018 Status: F Source: TALI NO DIFF 6:35 AM [facility] REPOSITORY TYPE CODE TESTS RESULT OUT OF [...] MPV 9.6 Performed By: #### L100.0500 #### [facility] [address] [place], [address] BEDSIDE GLUCOSE Collected: 08/23/2018 Status: F Source: TALI 9:03 PM [facility] REPOSITORY TYPE CODE TESTS RESULT OUT OF REFERENCE UNITS RANGE LAB L501.080 70-110 mg/dL High BEDSIDE GLU 140 Result Comment: MANAGEMENT OF PATIENT CARE PER NURSING PROTOCOL Performed By: #### L501.080 #### [facility] Point of Care [address] [place] [address] BEDSIDE GLUCOSE Collected: 08/23/2018 Status: F Source: TALI 4:30 PM [facility] REPOSITORY TYPE CODE TESTS RESULT OUT OF RANGE REFERENCE UNITS LAB L501.080 70-110 mg/dL Normal BEDSIDE GLU 109 Result Comment: MANAGEMENT OF PATIENT CARE PER NURSING PROTOCOL Performed By: #### L501.080 #### [facility] Point of Care [address] [place] [address] 24 HR UR CREATININE Collected: 08/23/2018 Status: F Source: TALI CLEARANCE 4:15 PM [facility] REPOSITORY TYPE CODE TESTS RESULT OUT OF [...] CLEARANCE 16 Performed By: #### L500.4507 #### [facility] [address] [place], [address] PROTEIN, URINE 24HR Collected: 08/23/2018 Status: F Source: TALI 4:15 PM [facility] REPOSITORY TYPE CODE TESTS RESULT OUT OF RANGE REFERENCE UNITS LAB L501.1850 24.0 HOURS Normal UR COLLECT 24.0 TIME LAB L501.1875 mL Normal UR TOTAL 1850 VOLUME LAB L501.1925 <150 MG/24HR mg/24HR High 24hr UR 8909.6 PROTEIN LAB L501.1900 <11.9 mg/dL High URINE PROTEIN 481.6 Performed By: #### L500.9000 #### [facility] [address] [facility] [address] [place], [address] BEDSIDE GLUCOSE Collected: 08/23/2018 Status: F Source: TALI 12:27 PM [facility] REPOSITORY TYPE CODE TESTS RESULT OUT OF RANGE REFERENCE UNITS LAB L501.080 70-110 mg/dL Normal BEDSIDE GLU 88 Result Comment: MANAGEMENT OF PATIENT CARE PER NURSING PROTOCOL Performed By: #### L501.080 #### [facility] Point of Care [address] [place] [address] CONSULTATION Observed: 08/23/2018 Status: F Source: LAKIN 10:07 AM [facility] REPOSITORY [facility] Medical Records Department [address] [address] Consultation 08/22/18 1422 MR#: [id number] Acct: [id number] Name: BURGOSWILLIAMS Mery Rep #: [id number] : 1970 47 From: Loida Montiel DO PCP: Anderson Gaston MD Status: ADM IN Y Location: [place] [address] Consultation - Renal 08/22/18 PCP/ Referring MD: [...] Amlodipine Besylate (Norvasc) 5 mg PO DAILY [facility] Last Admin: 08/22/18 08:31 Dose: 5 mg Aspirin (Aspirin, Baby) 81 mg PO DAILY@0800 [facility] Last Admin: 08/22/18 08:32 Dose: 81 mg Atenolol (Tenormin (Beta Elizabeth)) 100 mg PO DAILY [facility] Last Admin: 08/22/18 08:32 Dose: 100 mg Atorvastatin Calcium (Lipitor) 20 mg PO QHS [facility] Last Admin: 08/21/18 22:42 Dose: 20 mg Bupropion HCl (Wellbutrin Xl) 300 mg PO DAILY [facility] Last Admin: 08/22/18 08:32 Dose: 300 mg Calcitriol (Rocaltrol) 0.5 mcg PO DAILY [facility] Last Admin: 08/22/18 08:31 Dose: 0.5 mcg Dextrose (D50w Syringe) 0 gm IV X1 PRN; Protocol PRN Reason: Hypoglycemia Furosemide (Lasix) 40 mg IV BID@1000,1800 [facility] Last Admin: 08/22/18 08:31 Dose: 40 mg Gabapentin (Neurontin) 300 mg PO TIDCM [facility] Last Admin: 08/22/18 11:38 Dose: 300 mg Glucagon () 1 mg IM .X1 PRN PRN Reason: Hypoglycemia Heparin Sodium (Porcine) (Heparin Na) 5,000 unit SC Q12 [facility] Last Admin: 08/22/18 08:32 Dose: 5,000 unit Hydralazine HCl (Apresoline) 25 mg PO TID [facility] Last Admin: 08/22/18 05:02 Dose: 25 mg Insulin Glargine (Lantus (Bkc)) 6 units SC QHS [facility] Last Admin: 08/21/18 22:43 Dose: 6 u Insulin Human Lispro (Humalog Kwikpen (Bkc)) 0 unit SQ ACHS [facility]; Protocol Last Admin: 08/22/18 11:38 Dose: Not Given Insulin Human Lispro (Humalog Kwikpen (Bkc)) 12 unit SC TIDCM [facility] Last Admin: 08/22/18 11:38 Dose: Not Given Magnesium Hydroxide (Milk Of Magnesia) 30 ml PO DAILY PRN PRN Reason: Constipation Sodium Chloride () 5 - 15 ml IV UD PRN PRN Reason: SALINE FLUSH Last Admin: 08/22/18 08:34 Dose: 10 ml Tamsulosin HCl (Flomax) 0.4 mg PO DAILY [facility] Last Admin: 08/22/18 08:31 Dose: 0.4 mg [...] F Source: TALI CDIFF (MOLECULAR) 9:45 AM [facility] REPOSITORY Is the patient receiving laxatives? N New/unexplained onset of 3 or more stools in past 24 hrs? Y Cdiff-Molecular C. Diff DNA Negative- No toxigenic C. Diff DNA Detected NAAT METHOD Testing was performed using nucleic acid amplification Performed By: #### M100.6796 #### [facility] [address] [place], [address] Observed: 08/23/2018 Status: F Source: LAKIN ENTERIC PATHOGEN 9:45 AM [facility] PANEL STOOL REPOSITORY EP PANEL STOOL CAMPYLOBACTER Not Detected Salmonella Not Detected Shigella sp. Not Detected Shiga Toxin Not Detected Yersinia Not Detected VIBRIO Not Detected Norovirus Not Detected Rotavirus Not Detected Performed By: #### M100.637 #### [facility] [address] [place], [address] CBC-COMPLETE BLOOD CNT Collected: 08/23/2018 Status: F Source: TALI NO DIFF 7:16 AM [facility] REPOSITORY TYPE CODE TESTS RESULT OUT OF [...] MPV 9.7 Performed By: #### L100.0500 #### [facility] [address] [place], [address] RENAL PROFILE Collected: 08/23/2018 Status: F Source: LAKIN 7:16 AM [facility] REPOSITORY TYPE CODE TESTS RESULT OUT OF [...] CO2 18.0 Performed By: #### L500.3600 #### [facility] [address] [place], [address] PTHIN Collected: 08/23/2018 Status: F Source: TALI 7:16 AM [facility] REPOSITORY TYPE CODE TESTS RESULT OUT OF RANGE REFERENCE UNITS LAB L509.1000 18.4-80.1 pg/mL High PTHIN 107.8 Performed By: #### L509.1000 #### [facility] [address] [place], [address] BEDSIDE GLUCOSE Collected: 08/23/2018 Status: F Source: TALI 6:44 AM [facility] REPOSITORY TYPE CODE TESTS RESULT OUT OF REFERENCE UNITS RANGE LAB L501.080 70-110 mg/dL High BEDSIDE GLU 115 Result Comment: MANAGEMENT OF PATIENT CARE PER NURSING PROTOCOL Performed By: #### L501.080 #### [facility] Point of Care [address] [place] [address] BEDSIDE GLUCOSE Collected: 08/22/2018 Status: F Source: TALI 9:22 PM [facility] REPOSITORY TYPE CODE TESTS RESULT OUT OF REFERENCE UNITS RANGE LAB L501.080 70-110 mg/dL High BEDSIDE GLU 127 Result Comment: MANAGEMENT OF PATIENT CARE PER NURSING PROTOCOL Performed By: #### L501.080 #### [facility] Point of Care [address] [place] [address] BEDSIDE GLUCOSE Collected: 08/22/2018 Status: F Source: TALI 4:23 PM [facility] REPOSITORY TYPE CODE TESTS RESULT OUT OF REFERENCE UNITS RANGE LAB L501.080 70-110 mg/dL High BEDSIDE GLU 147 Result Comment: MANAGEMENT OF PATIENT CARE PER NURSING PROTOCOL Performed By: #### L501.080 #### [facility] Point of Care [address] [place] [address] ECHOCARDIOGRAM COMPLETE Observed: 08/22/2018 Status: F Source: TALI 1:12 PM [facility] REPOSITORY [facility] Cardiovascular Services [address] [place] [address] Echo Complete 08/22/18 0949 MR#: [id number] Acct: [id number] Name: WILLIAMS BURGOS Rep #: [id number] : 1970 47 From: Mayo Miguel MD Attending Dr: Donna Salomon MD Status: ADM IN Ordering Dr: Oscar Ag MD Date: 08/22/18 Location: [facility] Sex: M C Admitted: 08/21/18 Reason For [...] Anderson Gaston Performed By: Antwon Shell RCS 08/22/18 1312 Date Mayo Miguel MD CC: Donna Salomon MD; Anderson Gaston MD; Oscar Ag MD Date Dictated: 08/22/1849 Date Transcribed: 08/22/181311 Rig Supervisor: Signed BEDSIDE GLUCOSE Collected: 08/22/2018 Status: F Source: LAKIN 12:20 PM [facility] REPOSITORY TYPE CODE TESTS RESULT OUT OF RANGE REFERENCE UNITS LAB L501.080 70-110 mg/dL Normal BEDSIDE GLU 93 Result Comment: MANAGEMENT OF PATIENT CARE PER NURSING PROTOCOL Performed By: #### L501.080 #### [facility] Point of Care [address] [facility] [place] [address] 12 LEAD ELECTROCARDIOGRAM Observed: 08/22/2018 Status: F Source: LAKIN 11:57 AM [facility] REPOSITORY [facility] Cardiovascular Services [address] [place] [address] 12 Lead EKG 08/21/18 1747 MR#: [id number] Acct: [id number] Name: BURGOSWILLIAMS D Rep #: [id number] : 1970 47 From: Tylor Rudd MD Attending Dr: Donna Salomon MD Status: ADM IN Ordering Dr: Toni Nelson DO Date: 08/21/18 Location: [facility] Sex: M C Admitted: 08/21/18 Test [...] consider inferior ischemia Abnormal ECG Confirmed by BLAIRE NORTON, TYLOR ([id number]), art editor TOBY WATSON ([id number]) on 08/22/2018 11:57:26 AM Referred By: RICHARD Confirmed By:TYLOR RUDD MD 08/22/18 1157 Date Tylor Rudd MD CC: Donna Salomon MD; Anderson Gaston MD; Toni Brizuela BEDSIDE GLUCOSE Collected: 08/22/2018 Status: F Source: TALI 11:36 AM [facility] REPOSITORY TYPE CODE TESTS RESULT OUT OF REFERENCE UNITS RANGE LAB L501.080 70-110 mg/dL Low BEDSIDE GLU 67 Result Comment: MANAGEMENT OF PATIENT CARE PER NURSING PROTOCOL Performed By: #### L501.080 #### [facility] Point of Care [address] [place] [address] BEDSIDE GLUCOSE Collected: 08/22/2018 Status: F Source: TALI 6:43 AM [facility] REPOSITORY TYPE CODE TESTS RESULT OUT OF REFERENCE UNITS RANGE LAB L501.080 70-110 mg/dL High BEDSIDE GLU 122 Result Comment: MANAGEMENT OF PATIENT CARE PER NURSING PROTOCOL Performed By: #### L501.080 #### [facility] Point of Care [address] [place] [address] CBC W/DIFF, AUTOMATED Collected: 08/22/2018 Status: F Source: TALI 2:45 AM [facility] REPOSITORY TYPE CODE TESTS RESULT OUT OF [...] Lymph 1.44 Performed By: #### L100.0100 #### [facility] [address] [place] [address]. [place], [place], [address] TROPONIN-I Collected: 08/22/2018 Status: F Source: TALI 2:45 AM [facility] REPOSITORY Order Comment: 'TROP' Serial specimen #1, #2 or #3: 3 TYPE CODE TESTS RESULT OUT OF RANGE REFERENCE UNITS LAB L501.4010 <0.045 ng/mL Normal 0.023 TROPONIN-I Result Comment: TROPONIN-I EXPECTED VALUES <0.045 Negative 0.045 - 0.590 Consistent with Cardiac Damage > OR = 0.600 Critical Value Not every elevated troponin is indicative of LA. These values should be used with clinical judgement in examining the patient's clinical picture for diagnosis. To establish a diagnosis of LA versus myocardial injury, there must be a demonstrated rise and/or fall in the troponin values, in addition to ischemic symptoms, EKG changes, new regional wall motion abnormality, and/or angiographical evidence. PLEASE NOTE: REFERENCE RANGES EDITED 18 Performed By: #### L501.4010 #### [facility] [address] [place], [place], [address] BASIC METABOLIC Collected: 08/22/2018 Status: F Source: [place] PROFILE (BMP) 2:45 AM [facility] REPOSITORY TYPE CODE TESTS RESULT OUT OF [...] GAP 8 Performed By: #### L500.2500 #### [facility] [address] [place], [address] TROPONIN-I Collected: 08/21/2018 Status: F Source: [place] 11:25 PM [facility] REPOSITORY Order Comment: 'TROP' Serial specimen #1, #2 or #3: 2 TYPE CODE TESTS RESULT OUT OF RANGE REFERENCE UNITS LAB L501.4010 <0.045 ng/mL Normal 0.021 TROPONIN-I Result Comment: TROPONIN-I EXPECTED VALUES <0.045 Negative 0.045 - 0.590 Consistent with Cardiac Damage > OR = 0.600 Critical Value Not every elevated troponin is indicative of LA. These values should be used with clinical judgement in examining the patient's clinical picture for diagnosis. To establish a diagnosis of LA versus myocardial injury, there must be a demonstrated rise and/or fall in the troponin values, in addition to ischemic symptoms, EKG changes, new regional wall motion abnormality, and/or angiographical evidence. PLEASE NOTE: REFERENCE RANGES EDITED 18 Performed By: #### L501.4010 #### [facility] [address] [place], [address] BEDSIDE GLUCOSE Collected: 08/21/2018 Status: F Source: LAKIN 10:35 PM [facility] REPOSITORY TYPE CODE TESTS RESULT OUT OF REFERENCE UNITS RANGE LAB L501.080 70-110 mg/dL High BEDSIDE GLU 186 Result Comment: MANAGEMENT OF PATIENT CARE PER NURSING PROTOCOL Performed By: #### L501.080 #### [facility] Point of Care [address] [address] HISTORY AND PHYSICAL Observed: 08/21/2018 Status: F Source: L[place] EXAM 8:49 PM [facility] REPOSITORY [facility] Medical Records Department [address] [place] [address] History and Physical 08/21/182000 MR#: [id number] Acct: [id number] Name: WILLIAMS BURGOS Rep #: [id number] : 1970 47 From: Oscar Ag MD PCP: Anderson Gaston MD Status: ADM IN Location: [place] [address] ADDENDUM by Oscar Ag MD on 08/21/18 [...] Problems (Last Reviewed 07/18/18 @ 14:09 by Luzmaira Mccullough) Ectopic cardiac beats (Chronic) Anemia of [...] type II, uncontrolled (Chronic) E11.65 Dx : 1990 Discussed with patient need [...] Heparin Code Visit Inpatient E AND M: 29050 Init Hosp L3 08/21/18 2017 <Electronically signed by Oscar Ag MD> Date Oscar Ag MD Cosigner Signature: Date (if applicable) CC: Anderson Gaston MD; Oscar Ag MD Signed EMERGENCY DEPARTMENT Observed: 08/21/2018 Status: F Source: TALI SUMMARY 7:04 PM [facility] REPOSITORY [facility] Medical Records Department [address] [place] [address] Emergency Department Summary 08/21/18 1901 MR#: [id number] Acct: [id number] Name: WILLIAMS BURGOS Rep #: [id number] : 1970 47 From: Toni Nelson DO [...] were made. 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 It may contain incorrect words, [...] your Primary Care Provider. Call [facility] ([phone]) or report to the closest Emergency Room. Call 911 if necessary. 08/21/18 7824 <Electronically signed by Toni Nelson DO> Date Toni Nelson DO Cosigner Signature (If Indicated): Date CC: Anderson Gaston MD URINALYSIS, COMPLETE Collected: 08/21/2018 Status: F Source: TALI 6:15 PM [facility] REPOSITORY Order Comment: Order Date: 08/21/18 How [...] URINE SEEN Performed By: #### L400.0001 #### [facility] [address] [place], [address] CBC W/DIFF, AUTOMATED Collected: 08/21/2018 Status: F Source: [place]AK[place] 6:03 PM [facility] REPOSITORY TYPE CODE TESTS RESULT OUT OF [...] Lymph 1.36 Performed By: #### L100.0100 #### [facility] [address] [place], [address] COMPREHENSIVE METABOLIC Collected: 08/21/2018 Status: F Source: [facility] 6:03 PM [facility] REPOSITORY TYPE CODE TESTS RESULT OUT OF [...] 6 Performed By: #### L500.4050, L501.4010 #### [facility] [address] [facility] [address] [place], [place], [address] TROPONIN-I Collected: 08/21/2018 Status: F Source: [place] 6:03 PM [facility] REPOSITORY TYPE CODE TESTS RESULT OUT OF RANGE REFERENCE UNITS LAB L501.4010 <0.045 ng/mL Normal 0.017 TROPONIN-I Result Comment: TROPONIN-I EXPECTED VALUES <0.045 Negative 0.045 - 0.590 Consistent with Cardiac Damage > OR = 0.600 Critical Value Not every elevated troponin is indicative of LA. These values should be used with clinical judgement in examining the patient's clinical picture for diagnosis. To establish a diagnosis of LA versus myocardial injury, there must be a demonstrated rise and/or fall in the troponin values, in addition to ischemic symptoms, EKG changes, new regional wall motion abnormality, and/or angiographical evidence. PLEASE NOTE: REFERENCE RANGES EDITED 18 Performed By: #### L500.4050, L501.4010 #### [facility] [address] [place], [place], [address] BNP,B-TYPE NATRIURETIC Collected: 08/21/2018 Status: F Source: TALI PEPTIDE 6:03 PM [facility] REPOSITORY TYPE CODE TESTS RESULT OUT OF RANGE REFERENCE UNITS LAB L503.6620 0-100 pg/mL High B-TYPE 638.0 ZARI PEP Performed By: #### L503.6620 #### [facility] [address] [place], [address] CHEST 1 VIEW Observed: 08/21/2018 Status: F Source: TALI (PORTABLE) 5:41 PM [facility] REPOSITORY [facility] Imaging Services [address] [place] [address] Chest 1 View (Portable) MR#: [id number] Acct: [id number] Name: WILLIAMS BURGOS Rep #: [id number] : 1970 M 47 From: Luis A De Leon MD PCP: Anderson Gaston MD Status: REG ER Study: Chest 1 View (Portable) Date of Exam: 08/21/18 Exam# [id number] Ordering Dr: Toni Nelson DO STUDY: X-RAY [...] CC: Anderson Gaston MD; Toni Nelson DO Rig Supervisor: Signed PROGRESS Observed: 08/19/2018 Status: COMPLETED Source: [place] 3:02 PM [facility] REPOSITORY [facility] ID: [id number] Author: Anderson Gaston Service: (none) Author Type: [...] DM type 2, goal HbA1c < 7% ([facility]) - GERD (gastroesophageal reflux disease) - Hyperlipidemia - Kidney stones - PNA (pneumonia) - Unspecified essential hypertension - Vitamin D deficiency PAST SURGICAL HISTORY Procedure Laterality Date - AV SHUNT FOR DIALYSIS Right 08/08/2018 Done at [facility] by Satish Phan MD - CYSTOSCOPY,REMV CALCULUS,COMPLIC [...] 100 unit/mL (3 mL) inpn - Insulin Avilla, Disposable, (BD ULTRA-FINE SANDRA PEN NEEDLE) 32 [...] MD CNOV Observed: 08/19/2018 Status: COMPLETED Source: [place] 2:20 PM [facility] REPOSITORY Office Visit (INTMWS) WILLIAMS BURGOS ([id number]) 1970 M Date Time Provider Department 08/19/18 [...] SHUNT FOR DIALYSIS Right 08/08/2018 Done at [facility] by Satish Phan MD - CYSTOSCOPY,REMV CALCULUS,COMPLIC [...] 100 unit/mL (3 mL) inpn - Insulin Avilla, Disposable, (BD ULTRA-FINE SANDRA PEN NEEDLE) 32 [...] ANDERSON GASTON MD Referring Provider: ANDERSON GASTON [[id number]] Allergies As of Date: 08/19/2018 (No Known [...] 1 CBC + DIFF [SQCBCDIF] Order #: [id number] FUTURE BASIC METABOLIC PNL [SQBMP] Order #: [id number] FUTURE Prescriptions as of 08/19/2018 Sig: COMPOUNDED [...] 08/19/18 PROGRESS Observed: 08/13/2018 Status: COMPLETED Source: [place] 3:34 PM [facility] REPOSITORY [facility] ID: [id number] Author: Irma Villa Service: (none) Author Type: Nurse Practitioner Type: [...] APRN.CNP CNOV Observed: 08/13/2018 Status: COMPLETED Source: [place] 3:20 PM [facility] REPOSITORY Office Visit (INTMWS) WILLIAMS BURGOS ([id number]) 1970 M Date Time Provider Department 08/13/18 3:20 PM IRMA VILLA (ANDRE) INTMWS During your visit today, we recorded [...] Patient agreeable to treatment plan. Irma Villa APRN.ANDRE Villa APRN.CNP 08/13/2018 3:46 PM Signed Please make [...] stuffiness and coughs. A good brand is VicNebel.TV, which can be found at [employer] or [employer]. This is especially important if you do [...] and not with prostate problems can try alsq-fzr-fogjxkf Coricidin HBP for congestion. 5.) For nasal/sinus [...] worsening follow up with the office at [phone] Referring Provider: SELF [[id number]] Allergies As of [...] stuffiness and coughs. A good brand is G5, which can be found at [employer] or [employer]. This is especially important if you do [...] and not with prostate problems can try spdr-ohf-njtcrzd Coricidin HBP for congestion. 5.) For nasal/sinus [...] worsening follow up with the office at [phone] Prescriptions ordered this encounter Disp Refills Start End AMOXICILLIN 875 MG-POTASSIUM CLAVULA* 14 t* 0 08/13/2018 08/20/2018 Route: ORAL Sig: Take 1 tablet by mouth twice daily for 7 days. Encounter Status:Closed by IRMA VILLA CNP on 12/5/18 PROGRESS Observed: 08/11/2018 Status: COMPLETED Source: [place] 9:35 AM [facility] REPOSITORY HNO ID: [id number] Author: Chelsea Andrade Service: (none) Author Type: Registered Nurse Type: Progress Notes Filed: 08/11/2018 10:09 AM Note Text: PRIMARY CARE COORDINATION FOLLOW-UP NOTE Provider Action/FYI: Pt had fistula placed on 08/08/18 by Imtiaz Phan MD and Bss running in 100's per pt. Patient identified by name and date of . YES Spoke to patient Summary: Fistula placed R arm by Cebul on 08/08. Checking BSs 3 times daily. BSs in 100s now, kidneys failing. Concerns: Pt in final stages kidney failure. Has been chking BSs much more often, feeling well. Arm is sore of course but otherwise well. It Security Engineer plan for next outreach: Will follow up after appt in Aug. Signature Chelsea Andrade RN Ambulatory Vascular Surgeon Internal Medicine [facility] August 11, 2018 ANDRETOUTRLUDA Observed: 08/11/2018 Status: COMPLETED Source: [place] 12:00 AM [facility] REPOSITORY Patient Outreach (INTMWS) WILLIAMS BURGOS ([id number]) 1970 M Date Time Provider Department 08/11/18 [...] patient Summary: Fistula placed R arm by Cebul on 08/08. Checking BSs 3 times daily. BSs in 100s now, kidneys failing. Concerns: Pt in final stages kidney failure. Has been chking BSs much more often, feeling well. Arm is sore of course but otherwise well. It Security Engineer plan for next outreach: Will follow up after appt in Aug. Santosh Andrade RN Ambulatory Vascular Surgeon Internal Medicine [facility] August 11, 2018 Allergies As of Date: 08/11/2018 (No Known Allergies) Date Reviewed: 07/16/2018 Reviewed by: Catalina Lala LPN - Fully Assessed Reason for Visit: Vascular Surgeon Chronic Care [9668] Prescriptions as of 08/11/2018 Sig: AZITHROMYCIN 250 [...] OPERATIVE REPORT Observed: 08/08/2018 Status: F Source: [place] 3:06 PM [facility] REPOSITORY [facility] Medical Records Department [address] [place] [place] [address] Operative Report 08/08/18 1340 MR#: [id number] Acct: [id number] Name: WILLIAMS BURGOS Rep #: [id number] : 1970 47 From: Satish Phan MD PCP: Anderson Gaston MD Status: [facility] Location: [place] [address] Problem List (1) Chronic renal failure, stage [...] Satish Phan MD CC: Anderson Gaston MD; Satish Phan MD Signed DISCHARGE INSTRUCTION Observed: 08/08/2018 Status: F Source: [place] 1:39 PM [facility] REPOSITORY [facility] Medical Records Department [address] [place] [address] Instructions for Home/Discharge Instructions 08/08/18 1155 MR#: [id number] Acct: [id number] Name: WILLIAMS BURGOS Rep #: [id number] : 1970 47 From: Satish Phan MD [...] Follow Up With: Satish Phan MD - [phone] When: Call to make an appointment for follow up in 10 days 08/08/18 8541 <Electronically signed by Satish Phan MD> Date Satish Phan MD CC: Anderson Gaston MD BEDSIDE GLUCOSE Collected: 08/08/2018 Status: F Source: [place] 10:40 AM [facility] REPOSITORY TYPE CODE TESTS RESULT OUT OF REFERENCE UNITS RANGE LAB L501.080 70-110 mg/dL High BEDSIDE GLU 150 Result Comment: MANAGEMENT OF PATIENT CARE PER NURSING PROTOCOL Performed By: #### L501.080 #### [facility] Point of Care [facility] [place] [address] CBC-COMPLETE BLOOD CNT Collected: 08/05/2018 Status: F Source: [place] NO DIFF 8:29 AM [facility] REPOSITORY TYPE CODE TESTS RESULT OUT OF [...] MPV 9.4 Performed By: #### L100.0500 #### [facility] [address] [place], [place], [address] BASIC METABOLIC Collected: 08/05/2018 Status: F Source: [place] PROFILE ([facility]) 8:29 AM [facility] REPOSITORY TYPE CODE TESTS RESULT OUT OF [...] GAP 9 Performed By: #### L500.2500 #### [facility] [address] [place], [address] PROGRESS Observed: 07/25/2018 Status: COMPLETED Source: [place] 11:42 AM [facility] REPOSITORY HNO ID: [id number] Author: Chelsea Andrade Service: (none) Author Type: [...] unfortunately, cannot control weight and diet well. It Security Engineer plan for next outreach: Will follow up 1 mo Signature Chelsea Andrade roaster supervisor Vascular Surgeon Internal Medicine [facility] July 25, 2018 HI Observed: 07/25/2018 Status: COMPLETED Source: [place] 12:00 AM [facility] REPOSITORY Patient Outreach (INTMWS) WILLIAMS BURGOS ([id number]) 1970 M Date Time Provider Department 07/25/18 [...] cough from prev pneumonia but declines Tessalon alberte RF. Breathing is much better. He has [...] unfortunately, cannot control weight and diet well. It Security Engineer plan for next outreach: Will follow up 1 mo Signature Chelsea Andrade RN Ambulatory Vascular Surgeon Internal Medicine [facility] July 25, 2018 Allergies As of Date: 07/25/2018 (No Known Allergies) Date Reviewed: 07/16/2018 Reviewed by: Catalina Lala LPN - Fully Assessed Reason for Visit: Vascular Surgeon Chronic Care [2709] Prescriptions as of 07/25/2018 Sig: AZITHROMYCIN 250 [...] RN 07/26/2018 4:27 PM >> CHELSEA ANDRADE Sat Jul 26, 2018 4:27 PM Taking 80 [...] VISIT REPORT Observed: 07/18/2018 Status: F Source: [place] 3:04 PM [facility] REPOSITORY [facility] [address] [place] [address] OFFICE VISIT Date of Service: 07/18/18 MR#: [id number] Acct: [id number] Name: WILLIAMS BURGOS #: [id number] : 1970 Provider: Satish Phan MD Age/Sex: 47/M Location: [facility] Status: Signed Intake Vital Signs07/18/18 Height 5 ft 8 in 07/18/18 Weight: 227 lb Intake Visit Reasons: Fistula Placement Consult Vein Mapping [facility] 07/16 Key Filer Required: No Allergies No Known Allergies Allergy [...] SUBCUT QHS ml 07/11/18 [History Confirmed 07/18/18] [facility] Medical History Anasarca associated with disorder of [...] is not currently on hemodialysis. At the [facility] on July 17, 2018 had bilateral upper [...] and recommendations will be returned to her [facility] Cardiovascular Services [address] [place] [address] Saphenous Vein Mapping, Bilat 07/17/18 0855 MR#: [id number]:[id number] Name: WILLIAMS BURGOS #:[id number] : 1970 47From: Satish Phan MD Attending Dr: Tyler Montiel DOus: REG CLI Ordering Dr: Loida Montiel DODate: [...] appearing Nutritional Appearance: overweight Orientation: alert, awake HENNY Mouth: oral mucosae normal Eyes General: appearance [...] DUPLEX UPPER Observed: 07/17/2018 Status: F Source: [facility] 10:54 AM [facility] REPOSITORY [facility] Cardiovascular Services [address] [place] [address] Saphenous Vein Mapping, Bilat 07/17/18 0855 MR#: [id number] Acct: [id number] Name: WILLIAMS BURGOS Mery Rep #: [id number] : 1970 47 From: Satish Phan MD Attending Dr: Loida Montiel DO Status: REG CLI Ordering Dr: Loida Montiel DO Date: 07/17/18 Location: [facility] Sex: M C Admitted: Reason For Study: [...] Gaston MD; Loida Montiel DO Date Dictated: 07/17/18 0855 Date Transcribed: 07/17/18 1053 Rig Supervisor: Signed D DIMER Collected: 07/16/2018 Status: F Source: [place] 11:17 AM [facility] REPOSITORY TYPE CODE TESTS RESULT OUT OF [...] DDMER, CBCDIF, AMYL, CMP, LIPA, HBA1C #### [facility] [address] [place], [place] [address] CBC AND DIFFERENTIAL Collected: 07/16/2018 Status: F Source: [place] 11:17 [facility] REPOSITORY TYPE CODE TESTS RESULT OUT OF [...] k/uL Abs Lymph 1.68 LAB AMONO % Cherry% 6.1 LAB AAMONO <0.87 k/uL Abs Cherry 0.43 LAB AEOS % Eosin% 0.9 LAB AAEOS <0.46 k/uL Abs Eosin 0.06 LAB ABASO % Baso% 0.6 LAB AABASO <0.11 k/uL Abs Baso 0.04 LAB AUNRBC 0 /100 WBC NRBCs 0.0 LAB ABNRBC <0.01 k/uL Absolute nRBC <0.01 LAB DTYP DTYPE Auto Diff Performed By: #### DDMER, CBCDIF, AMYL, CMP, LIPA, HBA1C #### [place] [address] AMYLASE Collected: 07/16/2018 Status: F Source: [place] 11:17 [facility] REPOSITORY TYPE CODE TESTS RESULT OUT OF REFERENCE UNITS RANGE LAB AMYL 30-104 U/L Low Amylase 21 Performed By: #### DDMER, CBCDIF, AMYL, CMP, LIPA, HBA1C #### [place] [address] [place] [address] COMP METABOLIC PANEL Collected: 07/16/2018 Status: F Source: [place] 11:17 [facility] REPOSITORY TYPE CODE TESTS RESULT OUT OF [...] mg/dL Glucose High 165 Result Comment: The [place] Diabetes Association (ADA) provides guidance for cutoff [...] Standards of Medical Care in Diabetes 2016, [place] Diabetes Association. Diabetes Care. 2016.39(Suppl 1). LAB [...] DDMER, CBCDIF, AMYL, CMP, LIPA, HBA1C #### [facility] [employer] [address] [place], [place] [address] LIPASE Collected: 07/16/2018 Status: F Source: [place] 11:17 AM [facility] REPOSITORY TYPE CODE TESTS RESULT OUT OF REFERENCE UNITS RANGE LAB LIPA 16-61 U/L Lipase 23 Performed By: #### DDMER, CBCDIF, AMYL, CMP, LIPA, HBA1C #### [facility] [employer] [address] [place], [place] [address] HEMOGLOBIN A1C Collected: 07/16/2018 Status: F Source: [place] 11:17 AM [facility] REPOSITORY TYPE CODE TESTS RESULT OUT OF REFERENCE UNITS RANGE LAB HGBA1C 4.3-5.6 % High Hemoglobin A1c 7.7 LAB HBA0 mg/dL Est. Average Glucose 174 Result Comment: eAG: (Estimated average glucose) is a calculated value from HgbA1c and is motor vehicle representative of the average blood glucose level in the last 2-3 month period. Performed By: #### DDMER, CBCDIF, AMYL, CMP, LIPA, HBA1C #### [facility] [address] [place] [address] XR CHEST 2V FRONTAL/LAT Observed: 07/16/2018 Status: F Source: [place] 11:08 AM [facility] REPOSITORY * * *Final Report* * * [...] and possible small left lung base infiltrate Rig Supervisor: [facility] Transcribe Date/Time: Jul 16 2018 1:32P Dictated by : MELVA RIVERA MD This examination was interpreted and the report reviewed and electronically signed by: MELVA RIVERA MD on Jul 16 2018 1:33PM EST [id number] PROGRESS Observed: 07/16/2018 Status: COMPLETED Source: [place] 11:00 AM [facility] REPOSITORY HNO ID: [id number] Author: Maranda Puckett Rt Service: (none) Author Type: (none) Type: Progress [...] AM PROGRESS Observed: 07/16/2018 Status: COMPLETED Source: [place] 10:03 AM [facility] [place] REPOSITORY HNO ID: [id number] Author: Anderson Gaston Service: (none) Author Type: [...] amLODIPine (NORVASC) 5 mg tablet - Insulin Avilla, Disposable, (BD ULTRA-FINE SANDRA PEN NEEDLE) 32 gauge x ndle - CPAP - gabapentin (NEURONTIN) 300 [...] MD CNOV Observed: 07/16/2018 Status: COMPLETED Source: [place] 9:40 AM [facility] REPOSITORY Office Visit (INTMWS) WILLIAMS BURGOS ([id number]) 1970 M Date Time Provider Department 07/16/18 [...] DM type 2, goal HbA1c < 7% ([facility]) - GERD (gastroesophageal reflux disease) - [...] amLODIPine (NORVASC) 5 mg tablet - Insulin Avilla, Disposable, (BD ULTRA-FINE SANDRA PEN NEEDLE) 32 gauge x /32 ndle - CPAP - gabapentin (NEURONTIN) 300 [...] [R06.89] Order(s):BASIC METABOLIC PNL [SQBMP] Order #: [id number] FUTURE ECHO [118755] Order #: [id number]: 1 FUTURE perflutren lipid microspheres (DEFINITY) 1.1 mg/mL injection (to be provided with echo procedure)Inject 1.3 mL intravenously as directed.Disp: 1.3 mLRfl: 0 CBC + DIFF [SQCBCDIF] Order #: [id number] FUTURE XR CHEST 2V FRONTAL/LAT [6195000] Order #: [id number] FUTURE D-DIMER [SQDDMER] Order #: [id number] FUTURE Prescriptions as of 07/16/2018 Sig: HYDRALAZINE [...] Catalina Lala LPN 07/16/2018 9:52 AM >> AMPARO CATALINA ORDER PICKER SatJul 16, 2018 9:52 AM completed Problem [...] RENAL PROFILE Collected: 07/10/2018 Status: F Source: [place] 12:10 PM [facility] REPOSITORY TYPE CODE TESTS RESULT OUT OF [...] CO2 26.0 Performed By: #### L500.3600 #### [facility] [address]. [place], [place], [address] PTHIN Collected: 07/10/2018 Status: F Source: [place] 12:10 PM [facility] REPOSITORY TYPE CODE TESTS RESULT OUT OF RANGE REFERENCE UNITS LAB L509.1000 18.4-80.1 pg/mL High PTHIN 349.8 Performed By: #### L509.1000 #### [facility] [address] [place], [address] GROUP A STREP BY Collected: 06/25/2018 Status: F Source: [place] PCR 11:00 AM [facility] REPOSITORY TYPE CODE TESTS RESULT OUT OF REFERENCE UNITS RANGE LAB GASSRC Throat Swab GAS Specimen Source LAB PCRGAS Negative for Group A Strep Group A PCR Streptococcus by PCR. Result Comment: This test was developed and its performance characteristics determined by [facility]'s Satish Campos [facility] [place] ([facility]). It has not been cleared or approved by the FDA. [facility] is regulated under CLIA as qualified to perform high-complexity testing. This test is used for clinical purposes. It should not be regarded as inv estigational or for research. Performed By: #### GASPCR #### [facility] [address] [place], [place] [address] PROGRESS Observed: 06/25/2018 Status: COMPLETED Source: [place] 10:24 AM [facility] REPOSITORY HNO ID: [id number] Author: Lillian Lee) Michael Service: (none) Author Type: Physician Dressing Machine Operator Type: Progress Notes Filed: 06/25/2018 12:41 PM [...] DM type 2, goal HbA1c < 7% ([facility]) - GERD (gastroesophageal reflux disease) - [...] daily. Disp: 30 tablet Rfl: 11 Insulin Avilla, Disposable, (BD ULTRA-FINE SANDRA PEN NEEDLE) 32 [...] follow up with PCP. Lillian Lemus PA-C CNOV Observed: 06/25/2018 Status: COMPLETED Source: [place] 10:00 AM [facility] REPOSITORY Office Visit (WSTR) WILLIAMS BURGOS ([id number]) 1970 M Date Time Provider Department 06/25/18 [...] DM type 2, goal HbA1c < 7% ([facility]) - GERD (gastroesophageal reflux disease) - [...] daily. Disp: 30 tablet Rfl: 11 Insulin Avilla, Disposable, (BD ULTRA-FINE SANDRA PEN NEEDLE) 32 [...] Diagnosis:Viral URI [J06.9] Order(s):RAPID STREP TEST B/O [4692011] Order #: [id number] GROUP A STREPTOCOCCUS BY PCR [SQGASPCR] Order #: [id number] benzonatate (LAVONNE GRIGGS) 100 mg capsuleTake 2 capsules by mouth [...] 06/25/18 PROGRESS Observed: 06/11/2018 Status: COMPLETED Source: [place] 4:05 PM [facility] REPOSITORY HNO ID: [id number] Author: Chelsea Andrade Service: (none) Author Type: [...] sched 1 mo F/U and did not. It Security Engineer plan for next outreach: Will follow up end of Jun to see what Dr Montiel. says. Signature Chelsea Andrade RN Ambulatory Vascular Surgeon Internal Medicine [place] [facility] June 11, 2018 PROGRESS Observed: 06/11/2018 Status: COMPLETED Source: [place] 12:39 PM [facility] [place] REPOSITORY [facility] ID: [id number] Author: Felicita (Pt) Monisha Service: (none) Author [...] Planned: 6 Planned Treatment Interventions: Therapeutic exercise;Neuromuscular re-education;Self-chcf management;Patient/Family/Caregiver Education;General Conditioning PLAN FOR NEXT VISIT: See how HEP is going. Progress LE strengthening like Hip ABD/LAQ/HS curls/SAQ, and resisted DF. Hamstring stretching. F/U visit one at a time due to high copay. Patient demonstrates good understanding of plan of care and treatment. The above goals and plan of care were discussed and agreed upon by patient/family. SUBJECTIVE: Williams Burogs is a 47 year old male seen [...] and has a walker. When goes to [facility] uses a motorized chart. Had home PT. [...] performance and compliance. Education as noted Billing: [facility]: Evaluation - Moderate Complexity (67941) Therapeutic Exercise (51232): 1:1 time: 15 minutes (1 unit: 8-22 mins) Total time: 43 minutes Felicita Bearden PT CNTHERAPY Observed: 06/11/2018 Status: COMPLETED Source: [place] 12:15 PM [facility] REPOSITORY OT/PT/Speech Visit (PTWS) WILLIAMS BURGOS ([id number]) 1970 M Date Time Provider Department 06/11/18 12:15 PM FELICITA BEARDEN (PT) PTWS Date Time Provider Department Center 06/11/2018 12:15 PM [id number], DIANA (PT)PTWS [facility] [place] Reason for Visit: PT Eval [137] Patient Education [91] Primary Visit Diagnosis:Right leg [...] Planned: 6 Planned Treatment Interventions: Therapeutic exercise;Neuromuscular re-education;Self-chcf management;Patient/Family/Caregiver Education;General Conditioning PLAN FOR NEXT VISIT: [...] and has a walker. When goes to [facility] uses a motorized chart. Had home PT. [...] performance and compliance. Education as noted Billing: [facility]: Evaluation - Moderate Complexity (53727) Therapeutic Exercise (51886): 1:1 time: 15 minutes (1 unit: 8-22 mins) Total time: 43 minutes Felicita Bearden PT CNPTOUTREACH Observed: 06/11/2018 Status: COMPLETED Source: [place] 12:00 AM [facility] REPOSITORY Patient Outreach (INTMWS) WILLIAMS BURGOS ([id number]) 1970 M Date Time Provider Department 06/11/18 CHELSEA SMITH INTAnithaWS During your visit today, we recorded the following information about you: Chelsea Cottrell, ANDER 06/11/2018 4:46 PM Signed PRIMARY CARE COORDINATION [...] sched 1 mo F/U and did not. It Security Engineer plan for next outreach: Will follow up end of Jun to see what Dr Montiel. says. Signature Chelsea Andrade RN Ambulatory Vascular Surgeon Internal Medicine [facility] June 11, 2018 Allergies As of Date: 06/11/2018 (No Known Allergies) Date Reviewed: 05/19/2018 Reviewed by: Monik Chinchilla Ma - Fully Assessed Reason for Visit: Vascular Surgeon Chronic Care [0614] Prescriptions as of 06/11/2018 Sig: TAMSULOSIN 0.4 [...] 06/11/18 PROGRESS Observed: 06/02/2018 Status: COMPLETED Source: [place] 9:32 AM [facility] REPOSITORY HNO ID: [id number] Author: Colleen Montalvo [facility] Service: (none) Author Type: (none) Type: Progress Notes Filed: 06/02/2018 9:32 AM Note Text: Reminder mailed to patient. [facility]. For 06/09 PROGRESS Observed: 05/29/2018 Status: COMPLETED Source: [place] 2:11 PM [facility] REPOSITORY HNO ID: [id number] Author: Colleen Montalvo [facility] Service: (none) Author Type: (none) Type: Progress Notes Filed: 06/02/2018 9:32 AM Note Text: [facility] CARE GAP REGISTRY DOCUMENTATION (OUTSIDE TEAMLET) [...] (mg/dL) Date Value 04/26/2016 213 LDL Chol, [place] (mg/dL) Date Value 06/18/2003 181 LDL Cholesterol, [...] due in August for DM Colleen Montalvo Cma CNPTOUTREACH Observed: 05/29/2018 Status: COMPLETED Source: [place] 12:00 AM [facility] REPOSITORY Patient Outreach (INTMWS) WILLIAMS BURGOS ([id number]) 1970 M Date Time Provider Department 05/29/18 COLLEEN MONTALVO) INTMWS During your visit today, we recorded the following information about you: Colleen Montalvo Cma 06/02/2018 9:32 AM Signed [facility] CARE GAP REGISTRY DOCUMENTATION (OUTSIDE TEAMLET) [...] (mg/dL) Date Value 04/26/2016 213 LDL Chol, [place] (mg/dL) Date Value 06/18/2003 181 LDL Cholesterol, [...] due in August for DM Colleen Montalvo [employer] Colleen Montalvo Senior [employer] 06/02/2018 9:32 AM Signed Reminder mailed to patient. BP hedy. For 06/09 Allergies As of Date: 05/29/2018 (No Known Allergies) Date Reviewed: 05/19/2018 Reviewed by: Monik Amor Ma - Fully Assessed Reason for Visit: PHMA/Care Gap Outreach [360] Primary Visit Diagnosis:Uncontrolled type 2 diabetes mellitus with complication, with long-term current use of insulin (HCC) [E11.8, E11.65, Z79.4] Order(s):HGB A1C [CJGUM7U] Order #: [id number] FUTURE Prescriptions as of 05/29/2018 Sig: BUPROPION [...] ALBUMIN/CREAT RATIO Collected: 05/19/2018 Status: F Source: [place] 12:00 PM [facility] REPOSITORY TYPE CODE TESTS RESULT OUT OF [...] 1995, 25:107) Performed By: #### UACR #### [facility] [address] [place], [place] [address] CBC AND DIFFERENTIAL Collected: 05/19/2018 Status: F Source: [place] 11:57 AM [facility] REPOSITORY TYPE CODE TESTS RESULT OUT OF [...] k/uL Abs Lymph 1.42 LAB AMONO % Cherry% 6.2 LAB AAMONO <0.87 k/uL Abs Cherry 0.39 LAB AEOS % Eosin% 0.8 LAB AAEOS <0.46 k/uL Abs Eosin 0.05 LAB ABASO % Baso% 0.5 LAB AABASO <0.11 k/uL Abs Baso 0.03 LAB AUNRBC 0 /100 WBC NRBCs 0.0 LAB ABNRBC <0.01 k/uL Absolute nRBC <0.01 LAB DTYP DTYPE Auto Diff Performed By: #### CBCDIF, HBA1C, CMP, LIPNF #### [facility] [address] [place], [place] [address] HEMOGLOBIN A1C Collected: 05/19/2018 Status: F Source: [place] 11:57 AM [facility] REPOSITORY TYPE CODE TESTS RESULT OUT OF REFERENCE UNITS RANGE LAB HGBA1C 4.3-5.6 % High Hemoglobin A1c 8.1 LAB HBA0 mg/dL Est. Average Glucose 186 Result Comment: eAG: (Estimated average glucose) is a calculated value from HgbA1c and is motor vehicle representative of the average blood glucose level in the last 2-3 month period. Performed By: #### CBCDIF, HBA1C, CMP, LIPNF #### [facility] [employer] [facility] [place] [address] COMP METABOLIC PANEL Collected: 05/19/2018 Status: F Source: [place] 11:57 AM [facility] REPOSITORY TYPE CODE TESTS RESULT OUT OF REFERENCE UNITS RANGE LAB TP 6.3-8.0 g/dL Low Protein, Total 6.2 LAB ALB 3.9-4.9 g/dL Low Albumin 3.3 LAB CA 8.5-10.2 mg/dL Calcium, Total 8.9 LAB TBIL 0.2-1.3 mg/dL Bilirubin, Total 0.3 LAB ALKP 36-108 U/L Alkaline High Phosphatase 144 LAB AST 14-40 U/L AST 20 LAB GLU 74-99 mg/dL Glucose High 259 Result Comment: The [place] Diabetes Association (ADA) provides guidance for cutoff [...] Standards of Medical Care in Diabetes 2016, [place] Diabetes Association. Diabetes Care. 2016.39(Suppl 1). LAB [...] By: #### CBCDIF, HBA1C, CMP, LIPNF #### [facility] [address] [place], [place] [address] LIPID PANEL, NONFAST Collected: 05/19/2018 Status: F Source: [place] 11:57 AM [facility] REPOSITORY TYPE CODE TESTS [...] Desk Reference: National Heart, Lung, and Blood [place]. National Institutes of Health. 2001: NIH Publication No. 01-3305. 2. An International Atherosclerosis Society position paper: global recommendations for the management of dyslipidemia: executive summary, Atherosclerosis. 2014: 232(2):410-413. Performed By: #### CBCDIF, HBA1C, CMP, LIPNF #### [facility] [address] [place], [place] [address] PROGRESS Observed: 05/19/2018 Status: COMPLETED Source: [place] 10:50 AM [facility] REPOSITORY HNO ID: [id number] Author: Irma Villa Service: (none) Author Type: Nurse Practitioner Type: [...] DM type 2, goal HbA1c < 7% ([facility]) - GERD (gastroesophageal reflux disease) - [...] 81 mg by mouth once daily. Insulin Avilla, Disposable, (BD ULTRA-FINE SANDRA PEN NEEDLE) 32 gauge x ndle Use one needle for each dose, [...] 3 YRS PLUS + IM Irma Villa APRN.CNP Prescription instructions reviewed with patient as applicable. Potential red flag symptoms discussed with the patient. Reviewed appropriate action plan to take if red flag symptoms occur. Patient agreeable to treatment plan. CNOV Observed: 05/19/2018 Status: COMPLETED Source: [place] 10:40 AM [facility] REPOSITORY Office Visit (INTMWS) WILLIAMS BURGOS ([id number]) 1970 M Date Time Provider Department 05/19/18 10:40 AM IRMA VILLA ([facility]) INTMWS During your visit today, we recorded [...] 81 mg by mouth once daily. Insulin Avilla, Disposable, (BD ULTRA-FINE SANDRA PEN NEEDLE) 32 gauge x 32 ndle Use one needle for each dose, [...] 3 YRS PLUS + IM Irma Villa APRN.[facility] [employer] [facility] Prescription instructions reviewed with patient as applicable. [...] [Z23] Order(s):LIPID PANEL, NONFASTING [SQLIPNF] Order #: [id number] FUTURE insulin aspart U-100 (NOVOLOG FLEXPEN U-100 [...] CONSULT TO PHYSICAL THERAPY [9032] Order #: [id number]: 1 ADMIN OF INFLUENZA VACCINE [[id number]] Order #: [id number]: 1 INFLUENZA VACCINE QUADRIVALENT AGE 3 YRS PLUS + IM [[id number]] Order #: [id number] Prescriptions as of 05/19/2018 Sig: INSULIN ASPART [...] EMERGENCY DEPARTMENT Observed: 03/02/2018 Status: F Source: [place] 3:24 PM [facility] REPOSITORY [facility] Medical Records Department [address] [place] [address] Emergency Department Summary 03/02/18 1523 MR#: [id number] Acct: [id number] Name: WILLIAMS BURGOS Rep #: [id number] : 1970 47 From: Byron Saldana DO PCP: Anderson Gaston MD Status: REG ER - ER Visit Summary Date of Service: 03/02/18 Chief Complaint: [] History of Present Illness: The patient is a 47 M [] Physical Examination: [] Test Results: [] Emergency Department Course and Treatment: [] Treatment Plan: [] Disposition: [] Impression: [] This note was generated with [employer] dictation software. It may contain incorrect words, [...] your Primary Care Provider. Call [facility] ([phone]) or report to the closest Emergency Room. Call 911 if necessary. 03/02/18 1524 <Electronically signed by Byron Saldana DO> Date Byron Saldana DO Cosigner Signature (If Indicated): Date CC: Anderson Gaston MD EMERGENCY DEPARTMENT Observed: 03/02/2018 Status: F Source: [place] SUMMARY 3:22 PM [facility] REPOSITORY [facility] Medical Records Department [address] [place] [address] Emergency Department Summary 03/02/18 1251 MR#: [id number] Acct: [id number] Name: WILLIAMS BURGOS Rep #: [id number] : 1970 47 From: Byron Saldana DO [...] Peripheral edema This note was generated with [employer] dictation software. It may contain incorrect words, [...] your Primary Care Provider. Call [facility] ([phone]) or report to the closest Emergency Room. Call 911 if necessary. 03/02/18 1522 <Electronically signed by Byron Saldana DO> Date Byron Saldana DO Cosigner Signature (If Indicated): Date CC: Anderson Gaston MD URINALYSIS, COMPLETE Collected: 03/02/2018 Status: F Source: [place] 12:45 PM [facility] REPOSITORY Order Comment: How was Urine Obtained? [...] 0-5 SEEN Performed By: #### L400.0001 #### [facility] [address] [place], [place], [address] CHEST PA AND LATERAL Observed: 03/02/2018 Status: F Source: [place] 12:31 PM [facility] REPOSITORY [facility] Imaging Services [address] [place] [address] Chest PA and Lateral MR#: [id number] Acct: [id number] Name: WILLIAMS BURGOS Rep #: [id number] : 1970 M 47 From: Torrie Montiel MD PCP: Anderson Gaston MD Status: REG ER Study: Chest PA and Lateral Date of Exam: 03/02/18 Exam# [id number] Ordering Dr: Byron Saldana DO STUDY: X-RAY [...] CC: Anderson Gaston MD; Byron Saldana DO Rig Supervisor: Signed CBC W/DIFF, AUTOMATED Collected: 03/02/2018 Status: F Source: [place] 12:30 PM [facility] REPOSITORY TYPE CODE TESTS RESULT OUT OF [...] Lymph 1.38 Performed By: #### L100.0100 #### [facility] [address] [place], [place], [address] BASIC METABOLIC Collected: 03/02/2018 Status: F Source: [place] PROFILE ([facility]) 12:30 PM [facility] REPOSITORY TYPE CODE TESTS RESULT OUT OF [...] GAP 5 Performed By: #### L500.2500 #### [facility] [address] [place], [address] BASIC METABOLIC Collected: 02/24/2018 Status: F Source: [place] PROFILE (BMP) 2:01 PM [facility] REPOSITORY TYPE CODE TESTS RESULT OUT OF [...] GAP 6 Performed By: #### L500.2500 #### [facility] [address] [place], [address] CARDIOLOGY VISIT Observed: 02/20/2018 Status: F Source: [place] REPORT 10:45 AM [facility] REPOSITORY [facility] [address] [place] [address] OFFICE VISIT Date of Service: 02/19/18 MR#: [id number] Acct: [id number] Name: WILLIAMS BURGOS Rep #: [id number] : 1970 Provider: CUAUHTEMOC Faith Age/Sex: 47/M [place] [facility] [place]: Signed HPI HPI Details: WILLIAMS BURGOS, [...] 2017 in which he was sent to [facility] emergency department after primary care physician [...] follow-up with primary care physician, urologist, and wool presser. He states being compliant with medications. Pt [...] Pressure 170/100 Intake Visit Reasons: 6 M Key Filer Required: No Is patient in pain?: No [...] PO BID tab 02/19/18 [History Confirmed 02/19/18] [facility] Medical History Retention, urine (Acute) Acute on [...] CHF (congestive heart failure) I50.33 Plan - LAISHA Ching Patient's echocardiogram from November 2017 showed ejection [...] 23. He will continue to follow-up with wool presser for ongoing evaluation of this. Since hospitalization [...] prior to saving. Follow Up 6 Months (CAN FILLER/PA) 12 Months (PFM) Coding Level of Care Code Off vis,new,level 4 Diagnoses Acute on chronic diastolic CHF (congestive heart failure) I50.33 Ectopic cardiac beats I49.49 Essential hypertension I10 Hypertension type: essential hypertension ILDA (acute kidney injury) N17.9 Uncontrolled type 2 diabetes mellitus with stage 3 chronic kidney disease, with long-term current use of insulin E11.22 Diabetes mellitus agricultural economist insulin use: with fpc use Diabetes mellitus complication status: with kidney [...] current use of insulin E11.22 Diabetes mellitus fpc insulin use: with agricultural economist use Diabetes mellitus complication status: with kidney complications Diabetes mellitus complication detail: with chronic kidney disease Chronic kidney disease stage: stage 3 (moderate) 02/19/18 9815 <Electronically signed by Aj INTERIANO> Date Aj Faith CAN FILLER-C 02/20/18 1045<Electronically signed by Vj Cabral MD> Cosigner Signature: Date (if applicable) Vj Cabral MD CC: Anderson Gaston MD PROGRESS Observed: 02/07/2018 Status: COMPLETED Source: [place] 2:11 PM [facility] REPOSITORY O ID: [id number] Author: Terry Patterson (Rn) Service: (none) Author [...] Stewart RN February 07, 2018 2:12 PM CNPTOUTREACH Observed: 02/07/2018 Status: COMPLETED Source: [place] 12:00 AM [facility] REPOSITORY Patient Outreach (FAMPWS) WILLIAMS BURGOS ([id number]) 1970 M Date Time Provider Department 02/07/18 [...] LPN - Fully Assessed Reason for Visit: Vascular Surgeon - Patient Initiated [9941] Cmt: Medication question Reason For Visit History [...] ENDOCRINOLOGY VISIT Observed: 01/20/2018 Status: F Source: [place] REPORT 6:43 PM [facility] REPOSITORY [facility] [address] [place] [address] OFFICE VISIT Date of Service: 01/20/18 MR#: [id number] Acct: [id number] Name: WILLIAMS BURGOS Rep #: [id number] : 1970 Provider: Norah Adams NP Age/Sex: 47/M [place] [facility] [place]: Signed HPI History of present illness [...] Intake Visit Reasons: Diabetes Mellitus Type 2 Key Filer Required: No Accompanied by: Is patient in [...] : low : 80 high : >400 PFSH Medical History Retention, urine (Acute) Acute [...] current use of insulin E11.22 Diabetes mellitus fpc insulin use: with fpc use Diabetes mellitus complication status: with kidney complications Diabetes mellitus complication detail: with chronic kidney disease Chronic kidney disease stage: stage 3 (moderate) Time Spent (min) 45 01/20/18 1843 <Electronically signed by Norah INTERIANO> Date Norah INTERIANO Cosigner Signature: Date (if applicable) CC: PROGRESS Observed: 01/18/2018 Status: COMPLETED Source: [place] 3:33 AM [facility] [place] REPOSITORY [facility] ID: [id number] Author: Maranda Nath Service: (none) Author Type: (none) Type: Progress Notes Filed: 01/18/2018 3:34 AM Note Text: Sleep Study Check-In Documentation Date: January 18, 2018 Name: Williams Burgos Patient was accompanied by Self. Location: [place] Latex allergy: No Tape allergy: No Current medications were reviewed with the patient:Yes Sleep aid taken by patient for the sleep study: Lenora of sleep aid: Not Applicable Procedure was explained to the patient and all questions were answered. PAP treatment discussed and shown to patient: Yes Knowledge Program (KP): KP was not completed in [facility] by patient and accepted Study type: Polysomnogram Adverse Event: No (If yes create a new abstract) SERS Event: No Comments: Patient was advised to follow up with their ordering provider regarding test results Maranda Barros Poly-T PROGRESS Observed: 01/15/2018 Status: COMPLETED Source: [place] 5:13 PM [facility] REPOSITORY HNO ID: [id number] Author: Anderson Gaston Service: (none) Author Type: [...] DM type 2, goal HbA1c < 7% ([facility]) - GERD (gastroesophageal reflux disease) - [...] MD CNOV Observed: 01/15/2018 Status: COMPLETED Source: [place] 4:40 PM [facility] REPOSITORY Office Visit (INTMWS) LORETTACARMENWILLIAMS ([id number]) 1970 M Date Time Provider Department 01/15/18 [...] Letter Text Department of Internal Medicine [address] [address] 01/15/2018 THIS IS A PRESCRIPTION FOR HANDICAPPED PARKING PERMIT Re: Williams Burgos [address] [address] The above named person requires a disability parking placard. DURATION: LIFETIME EXPIRATION: RENEW EVERY 5 YEARS Sincerely, Anderson Gaston MD Encounter Status:Closed by ANDERSON GASTON MD on 01/15/18 [facility] Observed: 01/10/2018 Status: COMPLETED Source: [place] 12:00 AM [facility] REPOSITORY Telephone (INTMWS) WILLIAMS BURGOS ([id number]) 1970 M Date Time Provider Department 01/10/18 ANDERSON GASTON INTMWS During your visit today, we recorded the following information about you: Adam Jovel LPN 01/10/2018 12:12 PM Signed per [employer] / insurance request - freestyle no longer [...] 01/13/18 PROGRESS Observed: 01/01/2018 Status: COMPLETED Source: [place] 4:00 PM [facility] REPOSITORY O ID: [id number] Author: Chelsea oC[facility]rell [facility] Service: (none) Author Type: Registered Nurse Type: Progress Notes Filed: 01/02/2018 12:08 PM Note Text: TRANSITION CARE MANAGEMENT (TCM) FOLLOW-UP NOTE Provider Action/FYI: Pt to have BMP next appt with [facility]. Last BUN/Cr on 12/25 is 61/3.1 Patient [...] when he comes in in 2 wks. It Security Engineer plan for next outreach: Will follow up at appt with Dr Gaston.01/15. Have instructed pt to bring meter to [facility] and Dr aGston appts. Signature Chelsea Andrade RN Ambulatory Vascular Surgeon Internal Medicine [facility] January 01, 2018 [place] Observed: 01/01/2018 Status: COMPLETED Source: [place] 12:00 AM [facility] REPOSITORY Patient Outreach (INTMWS) WILLIAMS BURGOS ([id number]) 1970 M Date Time Provider Department 01/01/18 CHELSEA SMITH During your visit today, we recorded the following information about you: Chelsea Cottrell RN 01/02/2018 12:08 PM Signed TRANSITION CARE MANAGEMENT (TCM) FOLLOW-UP NOTE Provider Action/FYI: Pt to have BMP next appt with [facility]. Last BUN/Cr on 12/25 is 61/3.1 Patient identified by name and date of : YES Spoke to patient Summary: Feeling much better. Swelling in legs, scrotum all gone. Sugars running 130's. Feeling RAJESH much better. Weighed 250# in hospital. Now weighs 199# at home. [facility] Jessica prior to appt with Dr [...] when he comes in in 2 wks. It Security Engineer plan for next outreach: Will follow up at appt with Dr Gaston.01/15. Have instructed pt to bring meter to [facility] and Dr Gaston appts. Signature Chelsea Andrade RN Ambulatory Vascular Surgeon Internal Medicine [facility] January 01, 2018 Allergies As of Date: 01/01/2018 (No Known Allergies) Date Reviewed: 12/16/2017 Reviewed by: Monik Chinchilla Ma - Fully Assessed Reason for Visit: Vascular Surgeon Chronic Care [1084] Prescriptions as of 01/01/2018 Sig: BLOOD SUGAR [...] 12/25/2017 Status: F Source: [place] 11:14 AM [facility] REPOSITORY TYPE CODE TESTS RESULT OUT OF [...] CO2 27.0 Performed By: #### L500.3600 #### [facility] [address] [place], [address] VITAMIN D,25 HYDROXY Collected: 12/25/2017 Status: F Source: [place] 11:14 AM [facility] REPOSITORY TYPE CODE TESTS RESULT OUT OF REFERENCE UNITS RANGE LAB L506.1000 29.95-100.01 ng/mL Low Vitamin D 14.3 25-OH Result Comment: Vitamin D 25(OH) Status Range Deficiency <20 ng/mL (50nmol/L) Insuffciency 20 - 30 ng/mL (50 - 75 nmol/L) Sufficiency 30 - 100 ng/mL (75 - 250 nmol/L) Toxicity >100 ng/mL (>250 nmol/L) Performed By: #### L506.1000 #### [facility] [address] [place], [address] EMERGENCY DEPARTMENT Observed: 12/24/2017 Status: F Source: [place] SUMMARY 4:38 PM [facility] REPOSITORY [facility] Medical Records Department [address] [facility] [place] [address] Emergency Department Summary 12/24/17 1220 MR#: [id number] Acct: [id number] Name: BURGOSWILLIAMS Mery Rep #: [id number] : 1970 47 From: Pedro Beck MD [...] next 10 days. This was called into [facility]. Instructed to follow-up his primary care physician for further evaluation. Return to the emergency department for any worsening symptoms. This note was generated with [employer] software. It may contain incorrect words, spelling, [...] your Primary Care Provider. Call [facility] ([phone]) or report to the closest Emergency Room. Call 911 if necessary. 12/24/17 1928 <Electronically signed by Pedro Beck MD> Date Pedro Beck MD Cosigner Signature (If Indicated): Date CC: Anderson Gaston MD DISCHARGE INSTRUCTION Observed: 12/22/2017 Status: F Source: [place] 4:51 PM [facility] REPOSITORY [facility] Medical Records Department [address] [place] [address] Discharge Instruction 12/22/17 1650 MR#: [id number] Acct: [id number] Name: WILLIAMS BURGOS Rep #: [id number] : 1970 47 From: Lg Hinojosa MD PCP: Anderson Gaston MD Status: REG ER ED Disposition - Plan for ED Patient: Chief Complaint: Complaint Instructions: ED UTI Cystitis Male Prescriptions: Ciprofloxacin [Cipro] 250 mg PO BID #14 tab Referrals: Andreson Gaston MD [Primary Care Provider] - Oswald Arriola MD [STAFF PHYSICIAN] - What to do if you have Problems For any increased pain, shortness of breath, bleeding, nausea or vomiting, chest pain, or any unexpected problems, contact your Primary Care Provider. Call [facility] ([phone]) or report to the closest Emergency Room. Call 911 if necessary. 12/22/17 1651 <Electronically signed by Lg Hinojosa MD> Date Lg Hinojosa MD Cosigner Signature (If Indicated): Date CC: Anderson Gaston MD EMERGENCY DEPARTMENT Observed: 12/22/2017 Status: F Source: [place] 4:50 PM [facility] REPOSITORY [facility] Medical Records Department [address] [place] [address] Emergency Department Summary 12/22/17 1648 MR#: [id number] Acct: [id number] Name: LORETTAWILLIAMS Mery Rep #: [id number] : 1970 47 From: Lg Hinojosa MD [...] change UTI This note was generated with [employer] dictation software. It may contain incorrect words, [...] your Primary Care Provider. Call [facility] ([phone]) or report to the closest Emergency Room. Call 911 if necessary. 12/22/17 1650 <Electronically signed by Lg Hinojosa MD> Date Lg Hinojosa MD Cosigner Signature (If Indicated): Date CC: Anderson Gaston MD URINALYSIS, COMPLETE Collected: 12/22/2017 Status: F Source: [place] 2:40 PM [facility] REPOSITORY Order Comment: How was Urine Obtained? PLANNING SPECIALIST TO SPECIFY TYPE CODE TESTS RESULT OUT [...] URINE SEEN Performed By: #### L400.0001 #### [facility] [address] [place], [address] Observed: 12/22/2017 Status: F Source: [place] CULTURE, URINE 2:40 PM [facility] REPOSITORY Urine Culture RESULTS FAXED TO [facility] 12/24/17 0883 Dasha Bernardo. Copy of report sent to Infection Control Printer [id number] 12/24/17 4566 BEN. ORGANISM 1: Meth. resistant Staph. aureus Chester Count >100,000 Meth. resistant Staph. aureus: REACTION Benzylpenicillin NF >=0.5 R Cefoxitin *NF + Inducable Clindamycin Resistan - Gentamicin $ <=0.5 S Levofloxacin $ 0.25 S Linezolid $$$$ 2 S Oxacillin NF >=4 R Rifampin $$ <=0.5 S Tetracycline NF >=16 R Trimethoprim/Sulfametho $ <=10 S Vancomycin $ <=0.5 S (NF) indicates non-formulary drug at [facility]. Approval by Infectious Disease Specialist required before non-formulary drugs may be ordered and/or dispensed. * CLSI guidelines does not recommend testing of cephalosporins. This interpretation is deduced from Beta-lactam/penicillin results. Performed By: #### M100.0650 #### [facility] [address] [place] [place], [address] PROGRESS Observed: 12/19/2017 Status: COMPLETED Source: [place] 6:15 AM [facility] REPOSITORY O ID: [id number] Author: Maranda Bell Service: (none) Author Type: [...] or sleep disorders: Heart failure or other ectsdywq-he-dbkyqk cardiac disease Sleep study to be performed: Split Study-Polysomnogram with PAP titration Special instructions: Split night study if AHI > 15. Start with 5 cmH2O then titrate per protocol Add ETCO2 and TCPCO2 if available Encourage supine and habitual sleep position Maranda Garcia Poly-T I have read the above protocol, edited as needed, and agree to the plan Octaviano Ruiz III, PhD, [facility] ENDOCRINOLOGY VISIT Observed: 12/18/2017 Status: F Source: [place] RE[place] 8:42 AM [facility] REPOSITORY [facility] [address] [place] [address] OFFICE VISIT Date of Service: 12/17/17 MR#: [id number] Acct: [id number] Name: WILLIAMS BURGOS Rep #: [id number] : 1970 Provider: Norha Adams NP Age/Sex: 47/M [place] [facility] [place]: Signed HPI History of present illness [...] Reasons: HOSP F/U, Diabetes Mellitus Type 2 Key Filer Required: No Accompanied by: Family / Other [...] : low : 34 high : 336 [facility] Medical History Retention, urine (Acute) Acute on [...] current use of insulin E11.22 Diabetes mellitus fpc insulin use: with agricultural economist use Diabetes mellitus complication status: with kidney [...] and colleagues, with an educational jennifer from [employer] Scoring: Total Score Depression Severity Action 1-4 Minimal depression No action needed 5-9 Mild depression Repeat PHQ-9 at follow up 10-14 Moderate depression Make tx plan,consider counseling, fup, prescription 12/18/17 0842 <Electronically signed by Norah INTERIANO> Date Norah INTERIANO Cosigner Signature: Date (if applicable) CC: PROGRESS Observed: 12/17/2017 Status: COMPLETED Source: [place] 7:56 AM [facility] REPOSITORY HNO ID: [id number] Author: Radha De Luna Service: (none) Author Type: (none) Type: Progress Notes Filed: 01/18/2018 3:34 AM Note Text: December 17, 2017 An order has been received for Polysomnogram (PSG) from Dr. Irma Villa APRN.ANDRE Naik. [facility] Staff. Visit prep complete. Comments :No The sleep study is scheduled for 01/03. Insurance: Payor: [employer] MEDICARE / Plan: [employer] CHOICE PPO / Product Type: PPO / Holta Kunal Coler DISCHARGE SUMMARY Observed: 12/17/2017 Status: F Source: [place] 6:02 AM [facility] REPOSITORY [facility] Medical Records Department [address] [place] [address] Discharge Summary 12/14/17 1900 MR#: [id number] Acct: [id number] Name: WILLIAMS BURGOS Mery Rep #: [id number] : 1970 47 From: Anitha Fang DO PCP: Anderson Gaston MD Status: DIS IN Y Location: [place] [address] Discharge Date and Diagnosis Date of Admission: [...] he diuresed quite well. Fluid balance at DC was -20,472. His weight decreased from 246 lbs and 14 ounces at admission to 218 and 14 ounces at DC. Adjustments were made to the insuling dosing [...] office. The patient was given literature at [facility] re: HD, AV fistula placement, nephrotic S. and an 1800 calorie Myplate worksheet. They have an appt with Norah Adams to help with getting the BS's controlled. This note was generated with [employer] dictation software. It may contain incorrect words, [...] When: as needed. Please Follow Up With: [facility] When: within the month Please [...] 65 Code Visit Inpatient E AND M: 51854 Disch Hosp 12/17/17 0602 <Electronically signed by Anitha Fang DO> Date Anitha Fang DO Cosigner Signature (if applicable): Date CC: Norah Adams NP; Tammie Fang; Anderson Gaston MD; Loida Montiel DO; Oswald Arriola MD Signed PROGRESS Observed: 12/16/2017 Status: COMPLETED Source: [place] 4:07 PM [facility] REPOSITORY HNO ID: [id number] Author: Irma Villa Service: (none) Author Type: Nurse Practitioner Type: Progress Notes Filed: 12/17/2017 10:57 AM Note Text: CC: Patient presents with: Recheck: Hospital follow up HPI Williams Burgos is a 47 year old male who presents today with significant other and daughter for [facility] follow up. Patient was originally admitted from 11/28- 12/06/17 for acute respiratory failure secondary to chronic diastolic CHF/pulmonary HTN, ILDA, Urinary retention with indwelling sky catheter and nephrotic range proteinuria. Patient was discharged home with [facility]. Recommended patient have PFT and sleep study. [...] discharged on 12/14/17 home with [facility]. Nurse is coming to the house three times per week. Was receiving PT prior his last hospital admission, [facility] nurse is going to reinstate PT. 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 Irma Villa APRN.ANDRE Transitional Care Management Progress Note The patients [...] members present at today?s visit. Irma Villa APRN.ANDRE CNOV Observed: 12/16/2017 Status: COMPLETED Source: [place] 4:00 PM [facility] REPOSITORY Office Visit (INTMWS) WILLIAMS BURGOS ([id number]) 1970 M Date Time Provider Department 12/16/17 4:00 PM [facility]A (ANDRE) INTMWS During your visit today, we recorded the following information about you: Temperature Pulse Respiration Blood pressure 97.8 degrees 71/minute 16/minute 124/72 Weight 96.2 kg Irma Villa APRN.ANDRE 12/17/2017 10:57 AM Addendum CC: Patient presents with: Recheck: Hospital follow up HPI Williams Burgos is a 47 year old male who presents today with significant other and daughter for [facility] follow up. Patient was originally admitted from 11/28- 12/06/17 for acute respiratory failure secondary to chronic diastolic CHF/pulmonary HTN, ILDA, Urinary retention with indwelling sky catheter and nephrotic range proteinuria. Patient was discharged home with [facility]. Recommended patient have PFT and sleep study. [...] discharged on 12/14/17 home with [facility]. Nurse is coming to the house three times per week. Was receiving PT prior his last hospital admission, [facility] nurse is going to reinstate PT. 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 Irma Villa APRN.[employer] Transitional Care Management Progress Note The patients [...] members present at today?s visit. Irma Villa APRN.ANDRE Chinchilla Ma 12/17/2017 10:57 AM Signed Transitional [...] members present at today?s visit. Referring Provider: [facility] [[id number]] Allergies As of Date: 12/16/2017 (No Known [...] congestive heart failure, unspecified heart failure type ([facility]) [I50.9] Order(s):CONSULT TO NUTRITION THERAPY [9033] Order #: [id number]: 1 POLYSOMNOGRAM (PSG)/HOME SLEEP APNEA TESTING (HSAT) [1997123] Order #: [id number] FUTURE furosemide (LASIX) 20 mg tabletTake 1 [...] MA SatDec 16, 2017 4:08 PM Taking 4 units with each meal POTASSIUM CHLORIDE ER 10 MEQ CAPSULE,EXTENDED RELEASE >> Monik Chinchilla Ma 12/16/2017 4:09 PM >> EVE CHINCHILLA MAE SatDec 16, 2017 4:09 PM No longer taking ATENOLOL 100 MG TABLET >> Monik Chinchilla Ma 12/16/2017 4:10 PM >> AMOR MUELLER MONIK SatDec 16, 2017 4:10 PM Not taking FUROSEMIDE 20 MG TABLET >> Monik Chinchilla Ma 12/16/2017 4:07 PM >> AMOR MUELLER MONIK SatDec 16, 2017 4:07 PM Taking 60mg daily HYDROCHLOROTHIAZIDE 25 MG TABLET >> Monik Chinchilla Ma 12/16/2017 4:09 PM >> AMOR MUELLER MONIK SatDec 16, 2017 4:09 PM Not taking LISINOPRIL 40 MG TABLET >> Monik Chinchilla Ma 12/16/2017 4:10 PM >> AMOR MUELLER MONIK SatDec 16, 2017 4:10 PM Not taking Problem [...] [N18.3] INVALID FOR* Visit Notes: >> Monik Chinchilla Ma SatDec 17, 2017 10:52 AM Status: Signed Transitional [...] LEAD ELECTROCARDIOGRAM Observed: 12/16/2017 Status: F Source: [place] 3:41 PM [facility] REPOSITORY [facility] Cardiovascular Services [address] [place] [address] 12 Lead EKG 12/10/17 1720 MR#: [id number] Acct: [id number] Name: WILLIAMS BURGOS Rep #: [id number] : 1970 47 From: Tylor Rudd MD Attending Dr: Tammie Fang Status: DIS IN Ordering Dr: Alana Orozco MD Date: 12/10/17 Location: [facility] Sex: M C Admitted: 12/10/17 Test Reason [...] ECG Confirmed by TYLOR RUDD MD ([id number]), art editor TOBY WATSON ([id number]) on 12/16/2017 3:41:27 PM Referred By: DONATO Confirmed By:TYLOR RUDD MD 12/16/17 1541 Date Tylor Rudd MD CC: Alana Orozco MD; Tammie Fang; Anderson Gaston MD Signed CONSULTATION Observed: 12/15/2017 Status: F Source: [place] 8:28 AM [facility] REPOSITORY [facility] Medical Records Department [address] [place] [address] Consultation 12/13/17 1301 MR#: [id number] Acct: [id number] Name: WILLIAMS BURGOS Rep #: [id number] : 1970 47 From: Loida Montiel DO PCP: Anderson Gaston MD Status: DIS IN Y Location: [place] [address] Consultation - Renal 12/13/17 PCP/ Referring MD: [...] on 12/13. He was recently discharged from [facility] to home with home health on 12/06 [...] Aspirin (Aspirin, Baby) 81 mg PO DAILY@0800 [facility] Last Admin: 12/13/17 08:07 Dose: 81 mg Atenolol (Tenormin (Beta Elizabeth)) 100 mg PO DAILY [facility] Last Admin: 12/13/17 08:09 Dose: 100 mg Atorvastatin Calcium (Lipitor) 20 mg PO QHS [facility] Last Admin: 12/12/17 21:28 Dose: 20 mg Bupropion HCl (Wellbutrin Xl) 300 mg PO DAILY [facility] Last Admin: 12/13/17 08:09 Dose: 300 mg Gabapentin (Neurontin) 300 mg PO TIDCM [facility] Last Admin: 12/13/17 11:48 Dose: 300 mg Heparin Sodium (Porcine) (Heparin Na) 5,000 unit SC BID [facility] Last Admin: 12/13/17 08:08 Dose: 5,000 u Furosemide 500 mg/ N/A 50 mls @ 1 mls/hr CONT INF .Q50H [facility] PRN Reason: 10 MG/HR Last Admin: 12/12/17 08:36 Dose: 1 mls/hr Insulin Aspart (Novolog Flexpen (Bkc)) 2 units SC TIDAC [facility] Last Admin: 12/13/17 11:46 Dose: 2 u Insulin Aspart (Novolog Flexpen (Bkc)) 0 units SC TIDAC [facility] PRN Reason: Protocol Last Admin: 12/13/17 11:47 Dose: 2 u Insulin Detemir (Levemir (Bkc)) 34 units SC HS [facility] Last Admin: 12/12/17 21:29 Dose: 34 u [...] Tamsulosin HCl (Flomax) 0.4 mg PO BID@0830,1730 [facility] Last Admin: 12/13/17 08:07 Dose: 0.4 mg [...] DISCHARGE INSTRUCTION Observed: 12/14/2017 Status: F Source: [place] 6:59 PM [facility] REPOSITORY [facility] Medical Records Department [address] [place] [address] Instructions for Home/Discharge Instructions 12/14/17 1806 MR#: [id number] Acct: [id number] Name: WILLIAMS BURGOS Rep #: [id number] : 1970 47 From: Anitha Fang DO PCP: Anderson Gaston MD Status: ADM IN - Discharge Diagnoses Current Active Problems: Current Active and Chronic Problems Acute on chronic diastolic CHF (congestive heart failure) (Acute) Acute hypoxemic respiratory failure (Acute) Nephrosis (Chronic) Hypoglycemia (Acute) resolved in ED You will use the following diet at home:: Calorie/Carbohydrate Controlled (specify 1200, 1400, etc) - 5588-5178 calories, 2 GM sodium, 60 GM protein, [...] is a very high salt content. The laundry or dry cleaners counter clerk's can help you with what to pick [...] When: as needed. Please Follow Up With: [facility] When: within the month Please Follow Up With: diabetic clinic When: BECK for instruction on diet. Proposed Discharge Date: 12/14/17 12/14/17 1859 <Electronically signed by Anitha Fang DO> Date Anitha Fang DO CC: Norah Adams CAN FILLER; Anderson Gaston MD; Loida Montiel DO; Tylor Rudd MD BEDSIDE GLUCOSE Collected: 12/14/2017 Status: F Source: [place] 4:17 PM [facility] REPOSITORY TYPE CODE TESTS RESULT OUT OF REFERENCE UNITS RANGE LAB L501.080 70-110 mg/dL High BEDSIDE GLU 161 Result Comment: MANAGEMENT OF PATIENT CARE PER NURSING PROTOCOL Performed By: #### L501.080 #### [facility] Point of Care [address] [place], [place] [address] BEDSIDE GLUCOSE Collected: 12/14/2017 Status: F Source: [place] 11:18 AM [facility] REPOSITORY TYPE CODE TESTS RESULT OUT OF REFERENCE UNITS RANGE LAB L501.080 70-110 mg/dL High BEDSIDE GLU 143 Result Comment: MANAGEMENT OF PATIENT CARE PER NURSING PROTOCOL Performed By: #### L501.080 #### [facility] Point of Care [address] [place], [place] [address] RENAL PROFILE Collected: 12/14/2017 Status: F Source: [place] 7:08 AM [facility] REPOSITORY TYPE CODE TESTS RESULT OUT OF [...] CO2 35.0 Performed By: #### L500.3600 #### [facility] [facility] [address] [place], [place], [address] BEDSIDE GLUCOSE Collected: 12/14/2017 Status: F Source: TALI 6:56 AM [facility] REPOSITORY TYPE CODE TESTS RESULT OUT OF REFERENCE UNITS RANGE LAB L501.080 70-110 mg/dL High BEDSIDE GLU 182 Result Comment: MANAGEMENT OF PATIENT CARE PER NURSING PROTOCOL Performed By: #### L501.080 #### [facility] Point of Care [address] [place] [address] BEDSIDE GLUCOSE Collected: 12/13/2017 Status: F Source: TALI 10:31 PM [facility] REPOSITORY TYPE CODE TESTS RESULT OUT OF REFERENCE UNITS RANGE LAB L501.080 70-110 mg/dL High BEDSIDE GLU 391 Result Comment: MANAGEMENT OF PATIENT CARE PER NURSING PROTOCOL Performed By: #### L501.080 #### [facility] Point of Care [address] [place] [address] BEDSIDE GLUCOSE Collected: 12/13/2017 Status: F Source: TALI 4:39 PM [facility] REPOSITORY TYPE CODE TESTS RESULT OUT OF REFERENCE UNITS RANGE LAB L501.080 70-110 mg/dL High BEDSIDE GLU 293 Result Comment: MANAGEMENT OF PATIENT CARE PER NURSING PROTOCOL Performed By: #### L501.080 #### [facility] Point of Care [address] [place] [address] BEDSIDE GLUCOSE Collected: 12/13/2017 Status: F Source: TALI 10:50 AM [facility] REPOSITORY TYPE CODE TESTS RESULT OUT OF REFERENCE UNITS RANGE LAB L501.080 70-110 mg/dL High BEDSIDE GLU 284 Result Comment: MANAGEMENT OF PATIENT CARE PER NURSING PROTOCOL Performed By: #### L501.080 #### [facility] Point of Care [address] [place] [address] BEDSIDE GLUCOSE Collected: 12/13/2017 Status: F Source: TALI 6:46 AM [facility] REPOSITORY TYPE CODE TESTS RESULT OUT OF REFERENCE UNITS RANGE LAB L501.080 70-110 mg/dL High BEDSIDE GLU 193 Result Comment: MANAGEMENT OF PATIENT CARE PER NURSING PROTOCOL Performed By: #### L501.080 #### [facility] Point of Care [address] [place] [address] CBC-COMPLETE BLOOD CNT Collected: 12/13/2017 Status: F Source: TALI NO DIFF 6:13 AM [facility] REPOSITORY TYPE CODE TESTS RESULT OUT OF [...] MPV 8.8 Performed By: #### L100.0500 #### [facility] [address] [place], [place], [address] BASIC METABOLIC Collected: 12/13/2017 Status: F Source: LAKIN PROFILE (BMP) 6:13 AM [facility] REPOSITORY TYPE CODE TESTS RESULT OUT OF [...] 7 Performed By: #### L500.2500, L501.2300 #### [facility] [address] [place], [address] PHOSPHORUS Collected: 12/13/2017 Status: F Source: TALI 6:13 AM [facility] REPOSITORY TYPE CODE TESTS RESULT OUT OF RANGE REFERENCE UNITS LAB L501.2300 2.5-4.9 mg/dL Normal PHOS 4.4 Performed By: #### L500.2500, L501.2300 #### [facility] [address] [place], [address] BEDSIDE GLUCOSE Collected: 12/12/2017 Status: F Source: TALI 8:45 PM [facility] REPOSITORY TYPE CODE TESTS RESULT OUT OF REFERENCE UNITS RANGE LAB L501.080 70-110 mg/dL High BEDSIDE GLU 358 Result Comment: MANAGEMENT OF PATIENT CARE PER NURSING PROTOCOL Performed By: #### L501.080 #### [facility] Point of Care [address] [facility] [place] [address] BEDSIDE GLUCOSE Collected: 12/12/2017 Status: F Source: TALI 4:09 PM [facility] REPOSITORY TYPE CODE TESTS RESULT OUT OF REFERENCE UNITS RANGE LAB L501.080 70-110 mg/dL High BEDSIDE GLU 223 Result Comment: MANAGEMENT OF PATIENT CARE PER NURSING PROTOCOL Performed By: #### L501.080 #### [facility] Point of Care [address] [place] [address] BEDSIDE GLUCOSE Collected: 12/12/2017 Status: F Source: TALI 11:57 AM [facility] REPOSITORY TYPE CODE TESTS RESULT OUT OF REFERENCE UNITS RANGE LAB L501.080 70-110 mg/dL High BEDSIDE GLU 229 Result Comment: MANAGEMENT OF PATIENT CARE PER NURSING PROTOCOL Performed By: #### L501.080 #### [facility] Point of Care [address] [place] [address] VENOUS DUPLEX LOWER Observed: 12/12/2017 Status: F Source: TALI EXTREMITY 8:48 AM [facility] REPOSITORY [facility] Cardiovascular Services [address] [address] Venous Duplex US - Mickey Extrem 12/11/17 0916 MR#: [id number] Acct: [id number] Name: WILLIAMS BURGOS Rep #: [id number] : 1970 47 From: Luis Garcia MD Attending Dr: Tammie Fang Status: ADM IN Ordering Dr: Kayla Mcmanus MD Date: 12/11/17 Location: [facility] Sex: M C Admitted: 12/10/17 Reason For [...] preliminary report was called and/or faxed to [facility]. Interpretation Summary Deep veins of the lower extremities are bilaterally patent and compressible segmentally. There is no evidence of deep vein thrombosis on either side. Valvular competence appears intact within the proximal deep venous systems bilaterally. The greater saphenous veins appear bilaterally patent and compressible segmentally. Ordering Physician: Kayla Mcmanus Referring Physician: ANDERSON GASTON Performed By: Meri Murray, RDCS, RVT 12/12/17846 Date Luis Garcia MD CC: Tammie Fang; Anderson Gaston MD; Kayla Mcmanus MD Date Dictated: 12/11/17915 Date Transcribed: 12/12/17846 Rig Supervisor: Signed BEDSIDE GLUCOSE Collected: 12/12/2017 Status: F Source: TALI 7:53 AM [facility] REPOSITORY TYPE CODE TESTS RESULT OUT OF REFERENCE UNITS RANGE LAB L501.080 70-110 mg/dL Low BEDSIDE GLU 45 Result Comment: MANAGEMENT OF PATIENT CARE PER NURSING PROTOCOL Performed By: #### L501.080 #### [facility] Point of Care [address] [place] [address] BEDSIDE GLUCOSE Collected: 12/12/2017 Status: F Source: TALI 6:58 AM [facility] REPOSITORY TYPE CODE TESTS RESULT OUT OF RANGE REFERENCE UNITS LAB L501.080 70-110 mg/dL Normal BEDSIDE GLU 71 Result Comment: MANAGEMENT OF PATIENT CARE PER NURSING PROTOCOL Performed By: #### L501.080 #### [facility] Point of Care [address] [place] [address] BASIC METABOLIC Collected: 12/12/2017 Status: F Source: TALI PROFILE (BMP) 6:00 AM [facility] REPOSITORY TYPE CODE TESTS RESULT OUT OF [...] Performed By: #### L500.2500, L501.2300, L501.5200 #### [facility] [address] [place], [place], [address] PHOSPHORUS Collected: 12/12/2017 Status: F Source: TALI 6:00 AM [facility] REPOSITORY TYPE CODE TESTS RESULT OUT OF RANGE REFERENCE UNITS LAB L501.2300 2.5-4.9 mg/dL Normal PHOS 4.0 Performed By: #### L500.2500, L501.2300, L501.5200 #### [facility] [address] [place], [place], [address] MAGNESIUM Collected: 12/12/2017 Status: F Source: TALI 6:00 AM [facility] REPOSITORY TYPE CODE TESTS RESULT OUT OF RANGE REFERENCE UNITS LAB L501.5200 1.6-2.6 mg/dL Normal MG 2.0 Result Comment: Please note revised Magnesium reference range effective 2017. Performed By: #### L500.2500, L501.2300, L501.5200 #### [facility] [address] [place], [place], [address] BEDSIDE GLUCOSE Collected: 12/11/2017 Status: F Source: TALI 10:45 PM [facility] REPOSITORY TYPE CODE TESTS RESULT OUT OF REFERENCE UNITS RANGE LAB L501.080 70-110 mg/dL High BEDSIDE GLU 272 Result Comment: MANAGEMENT OF PATIENT CARE PER NURSING PROTOCOL Performed By: #### L501.080 #### [facility] Point of Care [address] [place] [address] BEDSIDE GLUCOSE Collected: 12/11/2017 Status: F Source: TALI 4:13 PM [facility] REPOSITORY TYPE CODE TESTS RESULT OUT OF REFERENCE UNITS RANGE LAB L501.080 70-110 mg/dL High BEDSIDE GLU 212 Result Comment: MANAGEMENT OF PATIENT CARE PER NURSING PROTOCOL Performed By: #### L501.080 #### [facility] Point of Care [address] [place] [address] BEDSIDE GLUCOSE Collected: 12/11/2017 Status: F Source: TALI 11:15 AM [facility] REPOSITORY TYPE CODE TESTS RESULT OUT OF REFERENCE UNITS RANGE LAB L501.080 70-110 mg/dL High BEDSIDE GLU 193 Result Comment: MANAGEMENT OF PATIENT CARE PER NURSING PROTOCOL Performed By: #### L501.080 #### [facility] Point of Care [address] [place] [address] BEDSIDE GLUCOSE Collected: 12/11/2017 Status: F Source: TALI 6:43 AM [facility] REPOSITORY TYPE CODE TESTS RESULT OUT OF REFERENCE UNITS RANGE LAB L501.080 70-110 mg/dL High BEDSIDE GLU 162 Result Comment: MANAGEMENT OF PATIENT CARE PER NURSING PROTOCOL Performed By: #### L501.080 #### [facility] Point of Care [address] [place] [address] CBC W/DIFF, AUTOMATED Collected: 12/11/2017 Status: F Source: TALI 6:10 AM [facility] REPOSITORY TYPE CODE TESTS RESULT OUT OF [...] Lymph 1.04 Performed By: #### L100.0100 #### [facility] [address] [place] [address]. [place], [place], [address] BASIC METABOLIC Collected: 12/11/2017 Status: F Source: LAKIN PROFILE (BMP) 6:10 AM [facility] REPOSITORY TYPE CODE TESTS RESULT OUT OF [...] By: #### L500.2500, L500.4100, L501.5200, L501.9520 #### [facility] [address] [place], [address] LIPID PROFILE Collected: 12/11/2017 Status: F Source: LAKIN 6:10 AM [facility] REPOSITORY TYPE CODE TESTS RESULT OUT OF [...] By: #### L500.2500, L500.4100, L501.5200, L501.9520 #### [facility] [address] [place], [address] MAGNESIUM Collected: 12/11/2017 Status: F Source: TALI 6:10 AM [facility] REPOSITORY TYPE CODE TESTS RESULT OUT OF RANGE REFERENCE UNITS LAB L501.5200 1.6-2.6 mg/dL Normal MG 2.1 Result Comment: Please note revised Magnesium reference range effective 2017. Performed By: #### L500.2500, L500.4100, L501.5200, L501.9520 #### [facility] [address] [place], [address] THYROID STIM HORMONE Collected: 12/11/2017 Status: F Source: TALI (TSH) 6:10 AM [facility] REPOSITORY TYPE CODE TESTS RESULT OUT OF RANGE REFERENCE UNITS LAB L501.9520 0.358-3.74 uIU/mL Normal TSH 2.53 Performed By: #### L500.2500, L500.4100, L501.5200, L501.9520 #### [facility] [address] [place], [address] BNP,B-TYPE NATRIURETIC Collected: 12/11/2017 Status: F Source: TALI PEPTIDE 6:10 AM [facility] REPOSITORY TYPE CODE TESTS RESULT OUT OF RANGE REFERENCE UNITS LAB L503.6620 0-100 pg/mL High B-TYPE 408.0 ZARI PEP Performed By: #### L503.6620 #### [facility] [address] [place], [address] BEDSIDE GLUCOSE Collected: 12/11/2017 Status: F Source: TALI 1:37 AM [facility] REPOSITORY TYPE CODE TESTS RESULT OUT OF REFERENCE UNITS RANGE LAB L501.080 70-110 mg/dL High BEDSIDE GLU 197 Result Comment: MANAGEMENT OF PATIENT CARE PER NURSING PROTOCOL Performed By: #### L501.080 #### [facility] Point of Care [address] [place] [address] TROPONIN-I Collected: 12/10/2017 Status: F Source: TALI 9:11 PM [facility] REPOSITORY Order Comment: 'TROP' Serial specimen #1, #2, #3, or #4: 3 TYPE CODE TESTS RESULT OUT OF RANGE REFERENCE UNITS LAB L501.4010 <0.06 ng/mL Normal < 0.02 TROPONIN-I Result Comment: TROPONIN-I EXPECTED VALUES <0.05 NEGATIVE 0.06 - 0.59 AT RISK OF LA > OR = 0.60 SUGGEST LA Performed By: #### L501.4010 #### [facility] [address] [place], [address] BEDSIDE GLUCOSE Collected: 12/10/2017 Status: F Source: LAKIN 9:04 PM [facility] REPOSITORY TYPE CODE TESTS RESULT OUT OF REFERENCE UNITS RANGE LAB L501.080 70-110 mg/dL High BEDSIDE GLU 197 Result Comment: MANAGEMENT OF PATIENT CARE PER NURSING PROTOCOL Performed By: #### L501.080 #### [facility] Point of Care [address] [place] [address] BEDSIDE GLUCOSE Collected: 12/10/2017 Status: F Source: TALI 8:04 PM [facility] REPOSITORY TYPE CODE TESTS RESULT OUT OF REFERENCE UNITS RANGE LAB L501.080 70-110 mg/dL High BEDSIDE GLU 172 Result Comment: MANAGEMENT OF PATIENT CARE PER NURSING PROTOCOL Performed By: #### L501.080 #### [facility] Point of Care [address] [place] [address] HISTORY AND PHYSICAL Observed: 12/10/2017 Status: F Source: LAKIN EXAM 7:50 PM [facility] REPOSITORY [facility] Medical Records Department [address] [facility] [place] [address] History and Physical 12/10/17 1923 MR#: [id number] Acct: [id number] Name: WILLIAMS BURGOS Mery Rep #: [id number] : 1970 47 From: Kayla Mcmanus MD PCP: Anderson Gaston MD Status: ADM IN Location: [place] [address] Problem List (1) Acute on chronic diastolic CHF (congestive heart failure) Status: Acute (2) Acute hypoxemic respiratory failure Status: Acute (3) Hypoglycemia Status: Acute Comment: resolved in ED (4) Nephrosis Status: Chronic (5) HTN (hypertension) Status: Chronic Qualifiers: Hypertension type: essential hypertension (6) Diabetes mellitus type II, uncontrolled Status: Chronic Qualifiers: Diabetes mellitus fpc insulin use: with fpc use Diabetes mellitus complication status: with kidney complications Diabetes mellitus complication detail: with chronic kidney disease Chronic kidney disease stage: stage 3 (moderate) Qualified Code(s): E11.22 - Type 2 diabetes mellitus with diabetic chronic kidney disease; E11.65 - Type 2 diabetes mellitus with hyperglycemia; N18.3 - Chronic kidney disease, stage 3 (moderate); Z79.4 - assisted (current) use of insulin (7) Anxiety and [...] Kayla Mcmanus MD> Date Kayla Mcmanus MD Cosigner Signature: Date (if applicable) CC: Anderson Gaston MD; Kayla Mcmanus MD Signed EMERGENCY DEPARTMENT Observed: 12/10/2017 Status: F Source: LAKIN SUMMARY 7:21 PM [facility] REPOSITORY [facility] Medical Records Department [address] [place] [address] Emergency Department Summary 12/10/17 1726 MR#: [id number] Acct: [id number] Name: WILLIAMS BURGOS Rep #: [id number] : 1970 47 From: Alana Orozco MD [...] overload, hypoxia This note was generated with [employer] software. It may contain incorrect words, spelling, [...] your Primary Care Provider. Call [facility] ([phone]) or report to the closest Emergency Room. Call 911 if necessary. 12/10/171920 <Electronically signed by Alana Orozco MD> Date Alana Orozco MD Cosigner Signature (If Indicated): Date CC: Anderson Gaston MD URINALYSIS, COMPLETE Collected: 12/10/2017 Status: F Source: TALI 6:45 PM [facility] REPOSITORY Order Comment: How was Urine Obtained? [...] Normal AMORPHOUS Performed By: #### L400.0001 #### [facility] [address] [facility] [address] LACTIC ACID Collected: 12/10/2017 Status: F Source: LAKIN 5:25 PM [facility] REPOSITORY Order Comment: Yes/No query for Sepsis Lactate Rule Y TYPE CODE TESTS RESULT OUT OF RANGE REFERENCE UNITS LAB L503.6005 0.4-2.0 mmol/L Normal LACTIC ACID 1.1 Performed By: #### L503.6005 #### [facility] [address] [facility] [address] BEDSIDE GLUCOSE Collected: 12/10/2017 Status: F Source: LAKIN 5:22 PM [facility] REPOSITORY TYPE CODE TESTS RESULT OUT OF REFERENCE UNITS RANGE LAB L501.080 70-110 mg/dL High BEDSIDE GLU 149 Result Comment: MANAGEMENT OF PATIENT CARE PER NURSING PROTOCOL Performed By: #### L501.080 #### [facility] Point of Care [address] [place] [address] CHEST 1 VIEW Observed: 12/10/2017 Status: F Source: LAKIN (PORTABLE) 5:13 PM [facility] REPOSITORY [facility] Imaging Services [address] [place] [address] Chest 1 View (Portable) MR#: [id number] Acct: [id number] Name: WILLIAMS BURGOS Rep #: [id number] : 1970 M 47 From: Torres Islas MD PCP: Anderson Gaston MD Status: REG ER Study: Chest 1 View (Portable) Date of Exam: 12/10/17 Exam# [id number] Ordering Dr: Alana Orozco MD STUDY: X-RAY [...] CC: Alana Orozco MD; Anderson Gaston MD Rig Supervisor: Signed BEDSIDE GLUCOSE Collected: 12/10/2017 Status: F Source: TALI 5:01 PM [facility] REPOSITORY TYPE CODE TESTS RESULT OUT OF REFERENCE UNITS RANGE LAB L501.080 70-110 mg/dL Low alert BEDSIDE GLU 34 Result Comment: MANAGEMENT OF PATIENT CARE PER NURSING PROTOCOL Performed By: #### L501.080 #### [facility] Point of Care [address] [place] [address] CBC W/DIFF, AUTOMATED Collected: 12/10/2017 Status: F Source: TALI 5:00 PM [facility] REPOSITORY TYPE CODE TESTS RESULT OUT OF [...] Lymph 1.57 Performed By: #### L100.0100 #### [facility] [address] [place], [address] BASIC METABOLIC Collected: 12/10/2017 Status: F Source: TALI PROFILE (BMP) 5:00 PM [facility] REPOSITORY Order Comment: 'TROP' Serial specimen #1, #2, #3, or #4: 1 TYPE CODE TESTS RESULT OUT OF RANGE REFERENCE UNITS LAB L501.0100 74-106 mg/dL Low alert GLU 40 Result Comment: Critical Result(s) Called at: 18:07:42 12/10/2017 by: Sanjuana Brantley Glucose result less than 50 mg/dL suggests [...] 7 Performed By: #### L500.2500, L501.4010 #### [facility] [address] [facility] [place], [place], [address] TROPONIN-I Collected: 12/10/2017 Status: F Source: LAKIN 5:00 PM [facility] REPOSITORY Order Comment: 'TROP' Serial specimen #1, #2, #3, or #4: 1 TYPE CODE TESTS RESULT OUT OF RANGE REFERENCE UNITS LAB L501.4010 <0.06 ng/mL Normal < 0.02 TROPONIN-I Result Comment: TROPONIN-I EXPECTED VALUES <0.05 NEGATIVE 0.06 - 0.59 AT RISK OF LA > OR = 0.60 SUGGEST LA Performed By: #### L500.2500, L501.4010 #### [facility] [address] [facility] [place], [address] BNP,B-TYPE NATRIURETIC Collected: 12/10/2017 Status: F Source: LAKIN PEPTIDE 5:00 PM [facility] REPOSITORY TYPE CODE TESTS RESULT OUT OF RANGE REFERENCE UNITS LAB L503.6620 0-100 pg/mL High B-TYPE 366.8 ZARI PEP Performed By: #### L503.6620 #### [facility] [address] [place], [address] DISCHARGE SUMMARY Observed: 12/06/2017 Status: F Source: TALI 5:39 PM [facility] REPOSITORY [facility] Medical Records Department [address] [place] [address] Discharge Summary 12/06/17 1623 MR#: [id number] Acct: [id number] Name: WILLIAMS BURGOS Rep #: [id number] : 1970 46 From: Sadiq Navarro MD PCP: Anderson Gaston MD Status: ADM IN Location: [place] [address] Discharge Date and Diagnosis - Problem List [...] a diabetic nephropathy and peripheral neuropathy 3. LIDA on CKD stage III; most probably from [...] exercise is recommended 6. CAD status post LA, aspirin, statin, beta-elizabeth, will continue to monitor [...] follow-up instructions. This note was generated with [employer] dictation software. Every effort was made to ensure accuracy, however computerized hvac services professional mistakes may persist. Discharge Activity: May not [...] PFT Please Follow Up With: Norah Adams NP-C Medical Necessity - Tobacco Use Smoking Status: Never smoker Tobacco Use: Non-smoker Meaningful Use Info Meaningful Use Diagnoses (Choose all that apply): None applicable, CHF - CHF TOM/ARB ordered at discharge?: No Reason TOM/ARB not ordered?: Worsening renal dysfunctn, Worsening renal function Documented LVEF (%): 65 - Diastolic dysfunction Code Visit Inpatient E AND M: [id number] Disch Hosp 12/06/17 1685 <Electronically signed by Sadiq Navarro MD> Date Sadiq Navarro MD Cosigner Signature (if applicable): Date CC: Anderson Gaston MD; Sadiq Navarro MD Signed DISCHARGE INSTRUCTION Observed: 12/06/2017 Status: F Source: TALI 4:23 PM [facility] REPOSITORY [facility] Medical Records Department [address] [place] [address] Instructions for Home/Discharge Instructions 12/06/17 1159 MR#: [id number] Acct: [id number] Name: WILLIAMS BURGOS Rep #: [id number] : 1970 46 From: Sadiq Navarro MD [...] 3 weeks Please Follow Up With: Joao Hayse DO When: in 4 weeks for PFT 12/06/17 1623 <Electronically signed by Sadiq Navarro MD> Date Sadiq Navarro MD CC: Kyrie Garsia MD; Anderson Gaston MD; Loida Montiel DO; Vj Garcia MD BEDSIDE GLUCOSE Collected: 12/06/2017 Status: F Source: TALI 11:28 AM [facility] REPOSITORY TYPE CODE TESTS RESULT OUT OF REFERENCE UNITS RANGE LAB L501.080 70-110 mg/dL High BEDSIDE GLU 153 Result Comment: MANAGEMENT OF PATIENT CARE PER NURSING PROTOCOL Performed By: #### L501.080 #### [facility] Point of Care [address] [address] BEDSIDE GLUCOSE Collected: 12/06/2017 Status: F Source: TALI 6:51 AM [facility] REPOSITORY TYPE CODE TESTS RESULT OUT OF REFERENCE UNITS RANGE LAB L501.080 70-110 mg/dL High BEDSIDE GLU 154 Result Comment: MANAGEMENT OF PATIENT CARE PER NURSING PROTOCOL Performed By: #### L501.080 #### [facility] Point of Care [address] [place], [place] [address] BASIC METABOLIC Collected: 12/06/2017 Status: F Source: TALI PROFILE (BMP) 5:32 AM [facility] REPOSITORY TYPE CODE TESTS RESULT OUT OF [...] GAP 6 Performed By: #### L500.2500 #### [facility] [address] [place], [address] BEDSIDE GLUCOSE Collected: 12/06/2017 Status: F Source: TALI 3:20 AM [facility] REPOSITORY TYPE CODE TESTS RESULT OUT OF REFERENCE UNITS RANGE LAB L501.080 70-110 mg/dL High BEDSIDE GLU 182 Result Comment: MANAGEMENT OF PATIENT CARE PER NURSING PROTOCOL Performed By: #### L501.080 #### [facility] Point of Care [address] [place] [address] BEDSIDE GLUCOSE Collected: 12/05/2017 Status: F Source: TALI 9:06 PM [facility] REPOSITORY TYPE CODE TESTS RESULT OUT OF REFERENCE UNITS RANGE LAB L501.080 70-110 mg/dL High BEDSIDE GLU 209 Result Comment: MANAGEMENT OF PATIENT CARE PER NURSING PROTOCOL Performed By: #### L501.080 #### [facility] Point of Care [address] [place] [address] BEDSIDE GLUCOSE Collected: 12/05/2017 Status: F Source: LAKIN 5:02 PM [facility] REPOSITORY TYPE CODE TESTS RESULT OUT OF RANGE REFERENCE UNITS LAB L501.080 70-110 mg/dL Normal BEDSIDE GLU 99 Result Comment: MANAGEMENT OF PATIENT CARE PER NURSING PROTOCOL Performed By: #### L501.080 #### [facility] Point of Care [address] [place] [address] 12 LEAD ELECTROCARDIOGRAM Observed: 12/05/2017 Status: F Source: LAKIN 3:39 PM [facility] REPOSITORY [facility] Cardiovascular Services [address] [place] [address] 12 Lead EKG 12/02/17 0021 MR#: [id number] Acct: [id number] Name: WILLIAMS BURGOS Mery Rep #: [id number] : 1970 46 From: Tylor Rudd MD Attending Dr: Sadiq Navarro MD Status: ADM IN Ordering Dr: Donna Salomon MD Date: 12/01/17 Location: U Sex: M C Admitted: 11/28/17 Test Reason [...] Present Confirmed by TYLOR RUDD MD ([id number]), art editor TOBY WATSON ([id number]) on 12/05/2017 3:38:32 PM Referred By: DESTINI Confirmed By:TYLOR RUDD MD 12/05/17 1538 Date Tylor Rudd MD CC: Donna Salomon MD; Anderson Gaston MD; Sadiq Navarro MD Signed CONSULTATION Observed: 12/05/2017 Status: F Source: [place] 12:04 PM [facility] REPOSITORY [facility] Medical Records Department [address] [place] [address] Consultation 12/05/17 1151 MR#: [id number] Acct: [id number] Name: WILLIAMS BURGOS Rep #: [id number] : 1970 46 From: Vj Garcia MD PCP: Anderson Gaston MD Status: ADM IN Y Location: [place] [address] Problem List (1) Retention, urine Status: Acute [...] 3450 1000 / 1000 Balance -2035 / -2034 -2510 / -2510 -300 / -300 POC [...] in the care of this patient sincerely [facility] 12/05/17 1204 <Electronically signed by Vj Garcia MD> Date Vj Garcia MD Cosigner Signature (if applicable): Date CC: Kyrie Garsia MD; Anderson Gaston MD; Loida Montiel DO; Vj Garcia MD Signed BEDSIDE GLUCOSE Collected: 12/05/2017 Status: F Source: [place] 11:22 AM [facility] REPOSITORY TYPE CODE TESTS RESULT OUT OF RANGE REFERENCE UNITS LAB L501.080 70-110 mg/dL Normal BEDSIDE GLU 81 Result Comment: MANAGEMENT OF PATIENT CARE PER NURSING PROTOCOL Performed By: #### L501.080 #### [facility] Point of Care [address] [place] [address] BEDSIDE GLUCOSE Collected: 12/05/2017 Status: F Source: [place] 6:38 AM [facility] REPOSITORY TYPE CODE TESTS RESULT OUT OF RANGE REFERENCE UNITS LAB L501.080 70-110 mg/dL Normal BEDSIDE GLU 76 Result Comment: MANAGEMENT OF PATIENT CARE PER NURSING PROTOCOL Performed By: #### L501.080 #### [facility] Point of Care [address] [place] [address] BEDSIDE GLUCOSE Collected: 12/04/2017 Status: F Source: [place] 9:28 PM [facility] REPOSITORY TYPE CODE TESTS RESULT OUT OF REFERENCE UNITS RANGE LAB L501.080 70-110 mg/dL High BEDSIDE GLU 178 Result Comment: MANAGEMENT OF PATIENT CARE PER NURSING PROTOCOL Performed By: #### L501.080 #### [facility] Point of Care [address] [place] [address] BEDSIDE GLUCOSE Collected: 12/04/2017 Status: F Source: [place] 5:07 PM [facility] REPOSITORY TYPE CODE TESTS RESULT OUT OF REFERENCE UNITS RANGE LAB L501.080 70-110 mg/dL High BEDSIDE GLU 159 Result Comment: MANAGEMENT OF PATIENT CARE PER NURSING PROTOCOL Performed By: #### L501.080 #### [facility] Point of Care [address] [place] [address] BEDSIDE GLUCOSE Collected: 12/04/2017 Status: F Source: [place] 12:10 PM [facility] REPOSITORY TYPE CODE TESTS RESULT OUT OF RANGE REFERENCE UNITS LAB L501.080 70-110 mg/dL Normal BEDSIDE GLU 109 Result Comment: MANAGEMENT OF PATIENT CARE PER NURSING PROTOCOL Performed By: #### L501.080 #### [facility] Point of Care [address] [place] [address] BEDSIDE GLUCOSE Collected: 12/04/2017 Status: F Source: [place] 6:40 AM [facility] REPOSITORY TYPE CODE TESTS RESULT OUT OF RANGE REFERENCE UNITS LAB L501.080 70-110 mg/dL Normal BEDSIDE GLU 77 Result Comment: MANAGEMENT OF PATIENT CARE PER NURSING PROTOCOL Performed By: #### L501.080 #### [facility] Point of Care [address] [address] RENAL PROFILE Collected: 12/04/2017 Status: F Source: [place] 5:27 AM [facility] REPOSITORY TYPE CODE TESTS RESULT OUT OF [...] 28.0 Performed By: #### L500.3600, L501.5200 #### [facility] [address], [address] MAGNESIUM Collected: 12/04/2017 Status: F Source: [place] 5:27 AM [facility] REPOSITORY TYPE CODE TESTS RESULT OUT OF RANGE REFERENCE UNITS LAB L501.5200 1.6-2.6 mg/dL Normal MG 2.6 Result Comment: Please note revised Magnesium reference range effective 2017. Performed By: #### L500.3600, L501.5200 #### [facility] [address] [place], [address] BEDSIDE GLUCOSE Collected: 12/03/2017 Status: F Source: [place] 9:09 PM [facility] REPOSITORY TYPE CODE TESTS RESULT OUT OF REFERENCE UNITS RANGE LAB L501.080 70-110 mg/dL High BEDSIDE GLU 185 Result Comment: MANAGEMENT OF PATIENT CARE PER NURSING PROTOCOL Performed By: #### L501.080 #### [facility] Point of Care [address] [place] [address] BEDSIDE GLUCOSE Collected: 12/03/2017 Status: F Source: [place] 4:22 PM [facility] REPOSITORY TYPE CODE TESTS RESULT OUT OF REFERENCE UNITS RANGE LAB L501.080 70-110 mg/dL High BEDSIDE GLU 112 Result Comment: MANAGEMENT OF PATIENT CARE PER NURSING PROTOCOL Performed By: #### L501.080 #### [facility] Point of Care [address] [place] [address] BEDSIDE GLUCOSE Collected: 12/03/2017 Status: F Source: [place] 11:21 AM [facility] REPOSITORY TYPE CODE TESTS RESULT OUT OF REFERENCE UNITS RANGE LAB L501.080 70-110 mg/dL High BEDSIDE GLU 192 Result Comment: MANAGEMENT OF PATIENT CARE PER NURSING PROTOCOL Performed By: #### L501.080 #### [facility] Point of Care [address] [place] [address] CHEST PA AND LATERAL Observed: 12/03/2017 Status: F Source: [place] 9:19 AM [facility] REPOSITORY [facility] Imaging Services [address] [place] [address] Chest PA and Lateral MR#: [id number] Acct: [id number] Name: WILLIAMS BURGOS Rep #: [id number] : 1970 M 46 From: Allyssa Degroot MD PCP: Anderson Gaston MD Status: ADM IN Study: Chest PA and Lateral Date of Exam: 12/03/17 Exam# [id number] Ordering Dr: Loida Montiel DO STUDY: X-RAY [...] Degroot MD at 10:34 EDT Tel Direct: [phone], Service support , CC: Anderson Gaston MD; Loida Montiel DO Rig Supervisor: Signed CONSULTATION Observed: 12/03/2017 Status: F Source: [place] 9:17 AM [facility] REPOSITORY [facility] Medical Records Department [address] [place] [address] Consultation 11/28/17 1409 MR#: [id number] Acct: [id number] Name: WILLIAMS BURGOS Rep #: [id number] : 1970 46 From: Loida Montiel DO PCP: Anderson Gaston MD Status: ADM IN Y [id number] - Renal 11/28/17 PCP/ Referring MD: [...] Constipation Furosemide (Lasix) 40 mg IV BIDLX [facility] Heparin Sodium (Porcine) () 5,000 units SC [...] Tristan France MD at 9:37 EDT Tel [phone], Service support , Assessment/Plan 1. CKD stage [...] 12/03/2017 Status: F Source: [place] 7:01 AM [facility] REPOSITORY TYPE CODE TESTS RESULT OUT OF RANGE REFERENCE UNITS LAB L501.080 70-110 mg/dL Normal BEDSIDE GLU 91 Result Comment: MANAGEMENT OF PATIENT CARE PER NURSING PROTOCOL Performed By: #### L501.080 #### [facility] Point of Care [address] [address] BEDSIDE GLUCOSE Collected: 12/03/2017 Status: F Source: [place] 6:46 AM [facility] REPOSITORY TYPE CODE TESTS RESULT OUT OF REFERENCE UNITS RANGE LAB L501.080 70-110 mg/dL Low BEDSIDE GLU 65 Result Comment: MANAGEMENT OF PATIENT CARE PER NURSING PROTOCOL Performed By: #### L501.080 #### [facility] Point of Care [address] [place] [address] RENAL PROFILE Collected: 12/03/2017 Status: F Source: [place] 5:17 AM [facility] REPOSITORY TYPE CODE TESTS RESULT OUT OF [...] 29.0 Performed By: #### L500.3600, L501.5200 #### [facility] [address] [facility] [place] [facility] [address] MAGNESIUM Collected: 12/03/2017 Status: F Source: [place] 5:17 AM [facility] REPOSITORY TYPE CODE TESTS RESULT OUT OF RANGE REFERENCE UNITS LAB L501.5200 1.6-2.6 mg/dL Normal MG 2.5 Result Comment: Please note revised Magnesium reference range effective 2017. Performed By: #### L500.3600, L501.5200 #### [facility] [address] [facility] [place]. [facility] [address] BEDSIDE GLUCOSE Collected: 12/02/2017 Status: F Source: [place] 9:28 PM [facility] REPOSITORY TYPE CODE TESTS RESULT OUT OF REFERENCE UNITS RANGE LAB L501.080 70-110 mg/dL High BEDSIDE GLU 175 Result Comment: MANAGEMENT OF PATIENT CARE PER NURSING PROTOCOL Performed By: #### L501.080 #### [facility] Point of Care [address] [facility] [place] [address] BEDSIDE GLUCOSE Collected: 12/02/2017 Status: F Source: [place] 4:31 PM [facility] REPOSITORY TYPE CODE TESTS RESULT OUT OF REFERENCE UNITS RANGE LAB L501.080 70-110 mg/dL High BEDSIDE GLU 129 Result Comment: MANAGEMENT OF PATIENT CARE PER NURSING PROTOCOL Performed By: #### L501.080 #### [facility] Point of Care [address] [facility] [place] [address] CONSULTATION Observed: 12/02/2017 Status: F Source: [place] 3:48 PM [facility] REPOSITORY [facility] Medical Records Department [address] [place] [address] Consultation 12/02/17 0828 MR#: [id number] Acct: [id number] Name: WILLIAMS BURGOS #: [id number] : 1970 46 From: Yari Stein NP-C PCP: Anderson Gaston MD Status: ADM IN Y Location: [place] [id number] ADDENDUM by Kyrie Garsia MD on 12/02/17 [...] Continue to monitor. Inpatient E AND M: [id number] Init Hosp L3 12/02/17 1548 <Electronically signed [...] II, uncontrolled Status: Chronic Qualifiers: Diabetes mellitus fpc insulin use: with agricultural economist use Diabetes mellitus complication status: with unspecified complications Qualified Code(s): E11.8 - Type 2 diabetes mellitus with unspecified complications; E11.65 - Type 2 diabetes mellitus with hyperglycemia; Z79.4 - bone worker (current) use of insulin (11) Anxiety and [...] The patient was seen last admission by wool presser Dr. Montiel and was to follow up [...] a polysomnogram in the past here at [facility], however was noncompliant with PAP therapy. I [...] Tristan France MD at 9:37 EDT Tel [phone], Service support , Chest X-Ray 11/30/17 09:28 [...] past polysomnogram a long time ago at [facility]. These records are not available at this [...] or concerns. This note was generated with [employer] dictation software. It may contain incorrect words, spelling, and punctuation that were not noted in checking the note before signing. 12/02/17 1219 <Electronically signed by Yari INTERIANO> Date Yari E Emil CAN FILLER-C Cosigner Signature (if applicable): Date CC: Kyrie Garsia MD; Anderson Gaston MD; Loida Montiel DO Signed PROGRESS Observed: 12/02/2017 Status: COMPLETED Source: [place] 3:01 PM [facility] REPOSITORY O ID: [id number] Author: Chelsea Cottrell [facility] Service: (none) Author Type: Registered Nurse Type: Progress Notes Filed: 12/05/2017 3:03 PM Note Text: Reviewed [facility] records. Pt remains hospitalized there with Nephrotic syndrome and CHF. Having some Pulm edema. Looks like will remain in hospital few more days. BEDSIDE GLUCOSE Collected: 12/02/2017 Status: F Source: [place] 11:41 AM [facility] REPOSITORY TYPE CODE TESTS RESULT OUT OF RANGE REFERENCE UNITS LAB L501.080 70-110 mg/dL Normal BEDSIDE GLU 91 Result Comment: MANAGEMENT OF PATIENT CARE PER NURSING PROTOCOL Performed By: #### L501.080 #### [facility] Point of Care [address] [place], [place] [address] M R STAPH AUREUS Collected: 12/02/2017 Status: F Source: [place] DNA BY PCR 11:40 AM [facility] REPOSITORY Order Comment: Interface Comments: R/O MRSA Diagnosis: Order Date: 12/02/17 RESULTS CALLED TO 12/02/17 Samina3 Eduardo Lopez. REPORT READ BACK BY MARILYN. Comments: from janie TYPE CODE TESTS RESULT OUT OF REFERENCE UNITS RANGE LAB L8200.1100 Negative High MRSA POSITIVE RESULT Performed By: #### L8200.1000 #### [facility] [address] [place], [place], [address] BEDSIDE GLUCOSE Collected: 12/02/2017 Status: F Source: [place] 6:52 AM [facility] REPOSITORY TYPE CODE TESTS RESULT OUT OF RANGE REFERENCE UNITS LAB L501.080 70-110 mg/dL Normal BEDSIDE GLU 103 Result Comment: MANAGEMENT OF PATIENT CARE PER NURSING PROTOCOL Performed By: #### L501.080 #### [facility] Point of Care [address] [place] [address] BEDSIDE GLUCOSE Collected: 12/02/2017 Status: F Source: [place] 5:51 AM [facility] REPOSITORY TYPE CODE TESTS RESULT OUT OF RANGE REFERENCE UNITS LAB L501.080 70-110 mg/dL Normal BEDSIDE GLU 75 Result Comment: MANAGEMENT OF PATIENT CARE PER NURSING PROTOCOL Performed By: #### L501.080 #### [facility] Point of Care [address] [place] [address] BEDSIDE GLUCOSE Collected: 12/02/2017 Status: F Source: [place] 5:32 AM [facility] REPOSITORY TYPE CODE TESTS RESULT OUT OF REFERENCE UNITS RANGE LAB L501.080 70-110 mg/dL Low BEDSIDE GLU 64 Result Comment: MANAGEMENT OF PATIENT CARE PER NURSING PROTOCOL Performed By: #### L501.080 #### [facility] Point of Care [address] [address] RENAL PROFILE Collected: 12/02/2017 Status: F Source: [place] 5:10 AM [facility] REPOSITORY TYPE CODE TESTS RESULT OUT OF [...] CO2 27.0 Performed By: #### L500.3600 #### [facility] [address] [place], [address] CNPTOUTREA Observed: 12/02/2017 Status: COMPLETED Source: [place] 12:00 AM [facility] REPOSITORY Patient Outreach (INTMWS) WILLIAMS BURGOS ([id number]) 1970 M Date Time Provider Department 12/02/17 CHELSEA SMITH During your visit today, we recorded the following information about you: Chelsea Cottrell RN 12/05/2017 3:03 PM Signed Reviewed [facility] records. Pt remains hospitalized there with Nephrotic [...] BEDSIDE GLUCOSE Collected: 12/01/2017 Status: F Source: [place] 9:33 PM [facility] REPOSITORY TYPE CODE TESTS RESULT OUT OF REFERENCE UNITS RANGE LAB L501.080 70-110 mg/dL High BEDSIDE GLU 188 Result Comment: MANAGEMENT OF PATIENT CARE PER NURSING PROTOCOL Performed By: #### L501.080 #### [facility] Point of Care [address] [address] BEDSIDE GLUCOSE Collected: 12/01/2017 Status: F Source: [place] 4:46 PM [facility] REPOSITORY TYPE CODE TESTS RESULT OUT OF REFERENCE UNITS RANGE LAB L501.080 70-110 mg/dL High BEDSIDE GLU 116 Result Comment: MANAGEMENT OF PATIENT CARE PER NURSING PROTOCOL Performed By: #### L501.080 #### [facility] Point of Care [address] [place] [address] BLOOD GASES BY CPS Collected: 12/01/2017 Status: F Source: [place] 11:52 AM [facility] REPOSITORY TYPE CODE TESTS RESULT OUT OF [...] SO2 ISTAT Performed By: #### L9000.0800 #### [facility] Point of Care [address] [place] [address] BEDSIDE GLUCOSE Collected: 12/01/2017 Status: F Source: [place] 11:49 AM [facility] REPOSITORY TYPE CODE TESTS RESULT OUT OF RANGE REFERENCE UNITS LAB L501.080 70-110 mg/dL Normal BEDSIDE GLU 106 Result Comment: MANAGEMENT OF PATIENT CARE PER NURSING PROTOCOL Performed By: #### L501.080 #### [facility] Point of Care [address] [place] [address] BEDSIDE GLUCOSE Collected: 12/01/2017 Status: F Source: [place] 7:07 AM [facility] REPOSITORY TYPE CODE TESTS RESULT OUT OF REFERENCE UNITS RANGE LAB L501.080 70-110 mg/dL High BEDSIDE GLU 207 Result Comment: MANAGEMENT OF PATIENT CARE PER NURSING PROTOCOL Performed By: #### L501.080 #### [facility] Point of Care [address] [place] [address] RENAL PROFILE Collected: 12/01/2017 Status: F Source: [place] 5:24 AM [facility] REPOSITORY TYPE CODE TESTS RESULT OUT OF [...] CO2 25.0 Performed By: #### L500.3600 #### [facility] [address] [place], [place], [address] BLOOD GASES BY CPS Collected: 12/01/2017 Status: F Source: [place] 3:41 AM [facility] REPOSITORY TYPE CODE TESTS RESULT OUT OF [...] ISTAT 89 Performed By: #### L9000.0800 #### [facility] Point of Care [address] [facility] [place] [address] CHEST 1 VIEW Observed: 12/01/2017 Status: F Source: [place] (PORTABLE) 3:27 AM [facility] REPOSITORY [facility] Imaging Services [address] [place] [address] Chest 1 View (Portable) MR#: [id number] Acct: [id number] Name: WILLIAMS BURGOS Rep #: [id number] : 1970 M 46 From: Owen Del Valle MD PCP: Anderson Gaston MD Status: ADM IN Study: Chest 1 View (Portable) Date of Exam: 12/01/17 Exam# [id number] Ordering Dr: Vinnie Lima MD STUDY: X-RAY [...] CC: Anderson Gaston MD; Vinnie Lima MD Rig Supervisor: Signed BEDSIDE GLUCOSE Collected: 12/01/2017 Status: F Source: [place] 3:15 AM [facility] REPOSITORY TYPE CODE TESTS RESULT OUT OF REFERENCE UNITS RANGE LAB L501.080 70-110 mg/dL High BEDSIDE GLU 263 Result Comment: MANAGEMENT OF PATIENT CARE PER NURSING PROTOCOL Performed By: #### L501.080 #### [facility] Point of Care [address] [place] [address] BEDSIDE GLUCOSE Collected: 11/30/2017 Status: F Source: [place] 10:43 PM [facility] REPOSITORY TYPE CODE TESTS RESULT OUT OF REFERENCE UNITS RANGE LAB L501.080 70-110 mg/dL High BEDSIDE GLU 271 Result Comment: MANAGEMENT OF PATIENT CARE PER NURSING PROTOCOL Performed By: #### L501.080 #### [facility] Point of Care [address] [place] [address] BEDSIDE GLUCOSE Collected: 11/30/2017 Status: F Source: [place] 5:21 PM [facility] REPOSITORY TYPE CODE TESTS RESULT OUT OF REFERENCE UNITS RANGE LAB L501.080 70-110 mg/dL High BEDSIDE GLU 229 Result Comment: MANAGEMENT OF PATIENT CARE PER NURSING PROTOCOL Performed By: #### L501.080 #### [facility] Point of Care [address] [place] [address] BEDSIDE GLUCOSE Collected: 11/30/2017 Status: F Source: [place] 12:03 PM [facility] REPOSITORY TYPE CODE TESTS RESULT OUT OF REFERENCE UNITS RANGE LAB L501.080 70-110 mg/dL High BEDSIDE GLU 143 Result Comment: MANAGEMENT OF PATIENT CARE PER NURSING PROTOCOL Performed By: #### L501.080 #### [facility] Point of Care [address] [place] [address] CHEST 1 VIEW Observed: 11/30/2017 Status: F Source: [place] (PORTABLE) 9:29 AM [facility] REPOSITORY [facility] Imaging Services [address] [place] [address] Chest 1 View (Portable) MR#: [id number] Acct: [id number] Name: WILLIAMS BURGOS Rep #: [id number] : 1970 M 46 From: Neli Watson MD PCP: Anderson Gaston MD Status: ADM IN Study: Chest 1 View (Portable) Date of Exam: 11/30/17 Exam# [id number] Ordering Dr: Donna Salomon MD STUDY: X-RAY [...] CC: Donna Salomon MD; Anderson Gaston MD Rig Supervisor: Signed BEDSIDE GLUCOSE Collected: 11/30/2017 Status: F Source: [place] 6:54 AM [facility] REPOSITORY TYPE CODE TESTS RESULT OUT OF RANGE REFERENCE UNITS LAB L501.080 70-110 mg/dL Normal BEDSIDE GLU 85 Result Comment: MANAGEMENT OF PATIENT CARE PER NURSING PROTOCOL Performed By: #### L501.080 #### [facility] Point of Care [address] [place] [address] BEDSIDE GLUCOSE Collected: 11/29/2017 Status: F Source: [place] 10:33 PM [facility] REPOSITORY TYPE CODE TESTS RESULT OUT OF REFERENCE UNITS RANGE LAB L501.080 70-110 mg/dL High BEDSIDE GLU 128 Result Comment: MANAGEMENT OF PATIENT CARE PER NURSING PROTOCOL Performed By: #### L501.080 #### [facility] Point of Care [address] [place] [address] BEDSIDE GLUCOSE Collected: 11/29/2017 Status: F Source: [place] 7:58 PM [facility] REPOSITORY TYPE CODE TESTS RESULT OUT OF REFERENCE UNITS RANGE LAB L501.080 70-110 mg/dL High BEDSIDE GLU 117 Result Comment: MANAGEMENT OF PATIENT CARE PER NURSING PROTOCOL Performed By: #### L501.080 #### [facility] Point of Care [address] [place] [address] BEDSIDE GLUCOSE Collected: 11/29/2017 Status: F Source: [place] 4:21 PM [facility] REPOSITORY TYPE CODE TESTS RESULT OUT OF REFERENCE UNITS RANGE LAB L501.080 70-110 mg/dL High BEDSIDE GLU 137 Result Comment: MANAGEMENT OF PATIENT CARE PER NURSING PROTOCOL Performed By: #### L501.080 #### [facility] Point of Care [address] [place] [address] 12 LEAD ELECTROCARDIOGRAM Observed: 11/29/2017 Status: F Source: [place] 2:25 PM [facility] REPOSITORY [facility] Cardiovascular Services [address] [place] [address] 12 Lead EKG 11/28/17 0858 MR#: [id number] Acct: [id number] Name: WILLIAMS BURGOS Rep #: [id number] : 1970 46 From: Tylor Rudd MD Attending Dr: Donna Salomon MD Status: ADM IN Ordering Dr: Clarke Nick MD Date: 11/28/17 Location: [facility] Sex: M C Admitted: 11/28/17 Test Reason : SOB Blood Pressure : / mmHG Vent. Rate : 078 BPM Atrial Rate : 078 BPM P-R Int : 178 ms QRS Dur : 098 ms QT Int : 392 ms P-R-T Axes : 024 047 065 degrees QTc Int : 446 ms Normal sinus rhythm Normal ECG Confirmed by BLAIRE NORTON, TYLOR ([id number]), art editor TOBY WATSON ([id number]) on 11/29/2017 2:24:32 PM Referred By: VALENTINO Confirmed By:TYLOR RUDD MD 11/29/17 1424 Date Tylor Rudd MD CC: MD Bandar Nick; Anderson Gaston MD Signed BEDSIDE GLUCOSE Collected: 11/29/2017 Status: F Source: [place] 11:14 AM [facility] REPOSITORY TYPE CODE TESTS RESULT OUT OF REFERENCE UNITS RANGE LAB L501.080 70-110 mg/dL High BEDSIDE GLU 162 Result Comment: MANAGEMENT OF PATIENT CARE PER NURSING PROTOCOL Performed By: #### L501.080 #### [facility] Point of Care [address] [place] [address] BEDSIDE GLUCOSE Collected: 11/29/2017 Status: F Source: [place] 6:52 AM [facility] REPOSITORY TYPE CODE TESTS RESULT OUT OF REFERENCE UNITS RANGE LAB L501.080 70-110 mg/dL High BEDSIDE GLU 199 Result Comment: MANAGEMENT OF PATIENT CARE PER NURSING PROTOCOL Performed By: #### L501.080 #### [facility] Point of Care [address] [place], [place] [address] CBC-COMPLETE BLOOD CNT Collected: 11/29/2017 Status: F Source: [place] NO DIFF 5:45 AM [facility] REPOSITORY TYPE CODE TESTS RESULT OUT OF [...] MPV 9.6 Performed By: #### L100.0500 #### [facility] [address] [place], [place], [address] BASIC METABOLIC Collected: 11/29/2017 Status: F Source: [place] PROFILE (BMP) 5:45 AM [facility] REPOSITORY TYPE CODE TESTS RESULT OUT OF [...] GAP 6 Performed By: #### L500.2500 #### [facility] [address] [place], [address] TROPONIN-I Collected: 11/28/2017 Status: F Source: [place] 11:10 PM [facility] REPOSITORY Order Comment: 'TROP' Serial specimen #1, #2, #3, or #4: 4 TYPE CODE TESTS RESULT OUT OF RANGE REFERENCE UNITS LAB L501.4010 <0.06 ng/mL Normal < 0.02 TROPONIN-I Result Comment: TROPONIN-I EXPECTED VALUES <0.05 NEGATIVE 0.06 - 0.59 AT RISK OF LA > OR = 0.60 SUGGEST LA Performed By: #### L501.4010 #### [facility] [address] [place], [address] BEDSIDE GLUCOSE Collected: 11/28/2017 Status: F Source: [place] 10:23 PM [facility] REPOSITORY TYPE CODE TESTS RESULT OUT OF REFERENCE UNITS RANGE LAB L501.080 70-110 mg/dL High BEDSIDE GLU 288 Result Comment: MANAGEMENT OF PATIENT CARE PER NURSING PROTOCOL Performed By: #### L501.080 #### [facility] Point of Care [address] [place], [place] [address] VENOUS DUPLEX LOWER Observed: 11/28/2017 Status: F Source: [place] EXTREMITY 8:24 PM [facility] REPOSITORY [facility] Cardiovascular Services [address] [place] [address] Venous Duplex US - Mickey Extrem 11/28/17922 MR#: [id number] Acct: [id number] Name: WILLIAMS BURGOS Rep #: [id number] : 1970 46 From: Conner Phillips MD Attending Dr: Donna Salomon MD Status: ADM IN Ordering Dr: Clarke Nick MD Date: 11/28/17 Location: [facility] Sex: M C Admitted: 11/28/17 Reason For [...] 11/28/172022 Date Conner Phillips MD CC: MD Portillo Jwayyed; Anderson Gaston MD Date Dictated: 11/28/17922 Date Transcribed: 11/28/172022 Rig Supervisor: Signed TROPONIN-I Collected: 11/28/2017 Status: F Source: [place] 6:01 PM [facility] REPOSITORY Order Comment: 'TROP' Serial specimen #1, #2, #3, or #4: 3 TYPE CODE TESTS RESULT OUT OF RANGE REFERENCE UNITS LAB L501.4010 <0.06 ng/mL Normal < 0.02 TROPONIN-I Result Comment: TROPONIN-I EXPECTED VALUES <0.05 NEGATIVE 0.06 - 0.59 AT RISK OF LA > OR = 0.60 SUGGEST LA Performed By: #### L501.4010 #### [facility] [address] [facility] 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 CAD status post LA, aspirin, statin, beta-elizabeth, will continue to monitor on telemetry 7. DVT prophylaxis with heparin subcu Code Visit Inpatient E AND M: 54661 Init Hosp L3 11/28/17 1862 <Electronically signed by Donna Salomon MD> Date Donna Salomon MD Cosigner Signature: Date (if applicable) CC: Donna Salomon MD; Anderson Gaston MD Signed BEDSIDE GLUCOSE Collected: 11/28/2017 Status: F Source: [place] 4:47 PM [facility] REPOSITORY TYPE CODE TESTS RESULT OUT OF REFERENCE UNITS RANGE LAB L501.080 70-110 mg/dL High BEDSIDE GLU 321 Result Comment: MANAGEMENT OF PATIENT CARE PER NURSING PROTOCOL Performed By: #### L501.080 #### [facility] Point of Care [address] [place] [address] EMERGENCY DEPARTMENT Observed: 11/28/2017 Status: F Source: [place] SUMMARY 4:33 PM [facility] REPOSITORY [facility] Medical Records Department [address] [place] [address] Emergency Department Summary 11/28/17 0900 MR#: [id number] Acct: [id number] Name: WILLIAMS BURGOS Rep #: [id number] : 1970 46 From: Clarke Nick MD [...] respiratory failure This note was generated with [employer] software. It may contain incorrect words, spelling, [...] your Primary Care Provider. Call [facility] ([phone]) or report to the closest Emergency Room. Call 911 if necessary. 11/28/17 1633 <Electronically signed by Clarke Nick MD> Date Clarke Nick MD Cosigner Signature (If Indicated): Date CC: Anderson Gaston MD LACTIC ACID Collected: 11/28/2017 Status: F Source: [place] 1:47 PM [facility] REPOSITORY TYPE CODE TESTS RESULT OUT OF RANGE REFERENCE UNITS LAB L503.6005 0.4-2.0 mmol/L Normal LACTIC ACID 0.9 Performed By: #### L503.6005 #### [facility] [address] [place], [address] ACETONE SERUM Collected: 11/28/2017 Status: F Source: [place] 9:45 AM [facility] REPOSITORY TYPE CODE TESTS RESULT OUT OF RANGE REFERENCE UNITS LAB L501.6900 NEG Normal ACETONE SERUM NEGATIVE Performed By: #### L501.6900 #### [facility] [place], [address] CBC W/DIFF, AUTOMATED Collected: 11/28/2017 Status: F Source: [place] 9:05 AM [facility] REPOSITORY TYPE CODE TESTS RESULT OUT OF [...] Lymph 0.97 Performed By: #### L100.0100 #### [facility] [address] [place], [address] BASIC METABOLIC Collected: 11/28/2017 Status: F Source: [place] PROFILE (BMP) 9:05 AM [facility] REPOSITORY TYPE CODE TESTS RESULT OUT OF [...] GAP 8 Performed By: #### L500.2500 #### [facility] [address] [place], [address] LACTIC ACID Collected: 11/28/2017 Status: F Source: [place] 9:05 AM [facility] REPOSITORY Order Comment: Yes/No query for Sepsis Lactate Rule Y TYPE CODE TESTS RESULT OUT OF REFERENCE UNITS RANGE LAB L503.6005 0.4-2.0 mmol/L High LACTIC ACID 2.3 Result Comment: Critical Result(s) Called at: 08:47:02 11/28/2017 by: Jes Hernandez to [employer] Performed By: #### L503.6005 #### [facility] [address] [facility] [place], [address] BNP,B-TYPE NATRIURETIC Collected: 11/28/2017 Status: F Source: [place] PEPTIDE 9:05 AM [facility] REPOSITORY TYPE CODE TESTS RESULT OUT OF RANGE REFERENCE UNITS LAB L503.6620 0-100 pg/mL High B-TYPE 388.9 ZARI PEP Performed By: #### L503.6620 #### [facility] [address] [place], [address] TROPONIN-I Collected: 11/28/2017 Status: F Source: [place] 9:05 AM [facility] REPOSITORY Order Comment: 'TROP' Serial specimen #1, #2, #3, or #4: 1 TYPE CODE TESTS RESULT OUT OF RANGE REFERENCE UNITS LAB L501.4010 <0.06 ng/mL Normal 0.03 TROPONIN-I Result Comment: TROPONIN-I EXPECTED VALUES <0.05 NEGATIVE 0.06 - 0.59 AT RISK OF LA > OR = 0.60 SUGGEST LA Performed By: #### L501.4010 #### [facility] [address] [facility] [place], [address] CHEST 1 VIEW Observed: 11/28/2017 Status: F Source: [place] (PORTABLE) 8:52 AM [facility] REPOSITORY [facility] Imaging Services [address] [place] [address] Chest 1 View (Portable) MR#: [id number] Acct: [id number] Name: WILLIAMS BURGOS Rep #: [id number] : 1970 M 46 From: Tristan France MD PCP: Anderson Gaston MD Status: PRE ER Study: Chest 1 View (Portable) Date of Exam: 11/28/17 Exam# [id number] Ordering Dr: Clarke Nick MD STUDY: X-RAY [...] Tristan France MD at 9:37 EDT Tel [phone], Service support , CC: MD Bandar Nick; Anderson Gaston MD Rig Supervisor: Signed PROGRESS Observed: 11/27/2017 Status: COMPLETED Source: [place] 11:00 AM [facility] [place] REPOSITORY HNO ID: [id number] Author: Chelsea Andrade Service: (none) Author Type: Registered Nurse Type: Progress Notes Filed: 06/11/2018 4:01 PM Note Text: PRIMARY CARE COORDINATION FOLLOW-UP NOTE Provider Action/FYI:Pt will think about what behavioral health program he wants to join. Patient identified by name and date of . YES Spoke to Oscar at [facility] Summary: Had called to enroll pt in their IOP program, however they do not take [employer] insurance and being out of network the copay would be prohibitive. Discussed possibilities of [place], Concerns: Pt has some mental health issue and strongly recc he engage with counseling center. It Security Engineer plan for next outreach: Will follow up as needed Signature Chelsea Andrade roaster supervisor Vascular Surgeon Internal Medicine [facility] November 27, 2017 ANDRESTEVE Observed: 11/27/2017 Status: COMPLETED Source: [place] 12:00 AM [facility] REPOSITORY Patient Outreach (INTMWS) WILLIAMS BURGOS ([id number]) 1970 M Date Time Provider Department 11/27/17 CHELSEA SMITH During your visit today, we recorded the following information about you: Chelsea Cottrell RN 06/11/2018 4:01 PM Signed PRIMARY CARE COORDINATION FOLLOW-UP NOTE Provider Action/FYI:Pt will think about what behavioral health program he wants to join. Patient identified by name and date of . YES Spoke to Oscar at [facility] Summary: Had called to enroll pt in their IOP program, however they do not take [employer] insurance and being out of network the copay would be prohibitive. Discussed possibilities of [place] Concerns: Pt has some mental health issue and strongly recc he engage with counseling center. It Security Engineer plan for next outreach: Will follow up as needed Signature Chelsea Andrade RN Ambulatory Vascular Surgeon Internal Medicine [facility] November 27, 2017 Allergies As of Date: 11/27/2017 (No Known Allergies) Date Reviewed: 11/26/2017 Reviewed by: Catalina Lala LPN - Fully Assessed Reason for Visit: Vascular Surgeon Chronic Care [3326] Prescriptions as of 11/27/2017 Sig: X INSULIN [...] 06/11/18 PROGRESS Observed: 11/26/2017 Status: COMPLETED Source: [place] 3:57 PM [facility] REPOSITORY HNO ID: [id number] Author: Anderson Gaston Service: (none) Author Type: Physician Type: Progress Notes Filed: 11/26/2017 5:12 PM Note Text: ? Reason for Visit Patient presents with: Established Patient: [facility] D/C 11/21; CHF, DM, HTN, ILDA Williams Burgos is a 46 year old male who presents here today for Above Complaints.. Health Maintenance LDL HPI Provider Action/FYI: Pt will require a lot of intervention. Coming in on 11/26 for TCM- would recc PT for strengthening, laundry or dry cleaners counter clerk, psych. ? Initial contact with patient post discharge, spoke to Williams. Patient identified by name and . ? SUMMARY: -Pt discharged from [facility] on 11/21. Adm 11/19 -Follow up appointment [...] soft drinks. He wanted to go to [employer] for dinner but GF dissuaded him. Pt [...] retinopathy R eye, severe HTN, presented to [facility] ED 11/19 with complaint of tinnitus, vision [...] interatrial shunt. Diuresed 2Ls. Diet ed by laundry or dry cleaners counter clerk given, meds adjusted, Seen by Dr Montiel and kidney protein consistent with nephrotic syndrome. GFR=25.. [facility] for counseling. Hospitalist felt his self neglect [...] MD PROGRESS Observed: 11/26/2017 Status: COMPLETED Source: [place] 3:51 PM [facility] REPOSITORY O ID: [id number] Author: Chelsea Cottrell [facility] Service: (none) Author Type: Registered Nurse Type: [...] Tomorrow with info about counseling Chelsea Andrade roaster supervisor Vascular Surgeon Internal Medicine [facility] November 26, 2017 CNOV Observed: 11/26/2017 Status: COMPLETED Source: [place] 3:40 PM [facility] REPOSITORY Office Visit (INTMWS) WILLIAMS BURGOS ([id number]) 1970 M Date Time Provider Department 11/26/17 3:40 PM ANDERSON GASTON INTMWS During your visit today, we recorded the following information about you: Pulse Respiration Blood pressure Weight 84/minute 16/minute 160/80 106.1 kg Height 1.727 m ANDERSON GASTON MD 11/26/2017 5:12 PM Signed ? Reason for Visit Patient presents with: Established Patient: TCM [facility] D/C 11/21; CHF, DM, HTN, ILDA Williams Burgos is a 46 year old male who presents here today for Above Complaints.. Health Maintenance LDL HPI Provider Action/FYI: Pt will require a lot of intervention. Coming in on 11/26 for TCM- would recc PT for strengthening, laundry or dry cleaners counter clerk, psych. ? Initial contact with patient post discharge, spoke to Williams. Patient identified by name and . ? SUMMARY: -Pt discharged from [facility] on 11/21. Adm 11/19 -Follow up appointment [...] soft drinks. He wanted to go to [facility] for dinner but GF dissuaded him. Pt [...] retinopathy R eye, severe HTN, presented to [facility] ED 11/19 with complaint of tinnitus, vision [...] interatrial shunt. Diuresed 2Ls. Diet ed by laundry or dry cleaners counter clerk given, meds adjusted, Seen by Dr Montiel and kidney protein consistent with nephrotic syndrome. GFR=25.. [facility] for counseling. Hospitalist felt his self neglect [...] for Visit: Established Patient [175] Cmt: [facility] D/C 11/21; CHF, DM, HTN, ILDA Primary [...] 2 BASIC METABOLIC PNL [SQBMP] Order #: [id number] FUTURE >Compression Knee Highs 30-40 mmKNEE HIGH [...] 11/26/17 PROGRESS Observed: 11/26/2017 Status: COMPLETED Source: [place] 1:10 PM [facility] REPOSITORY HNO ID: [id number] Author: Anderson Gaston Service: (none) Author Type: Physician Type: Progress Notes Filed: 11/29/2017 9:50 AM Note Text: noted CNPN Observed: 11/26/2017 Status: COMPLETED Source: [place] 12:00 AM [facility] REPOSITORY Telephone (INTMWS) WILLIAMS BURGOS ([id number]) 1970 M Date Time Provider Department 11/26/17 ANDERSON GASTON INTWS During your visit today, we recorded the following information about you: Annalisa De La Vega LPN 11/26/2017 4:50 PM Signed [facility] pharmacy calling for clarification on prescription for Lantus. Two different units are in the script. Asking if you want 75 units or 60 units. Please resend updated prescription. ANDERSON GASTON MD 11/26/2017 4:54 PM Signed I clarified in the pharamacy not to disregard the 75 units. But to take the 60 units daily Catalina Lala LPN 11/26/2017 5:03 PM [facility] ORDER PICKER 11/27/2017 8:11 AM Signed Previous Rx sent [...] 11/26/17 [place] Observed: 11/26/2017 Status: COMPLETED Source: [place] 12:00 AM [facility] REPOSITORY Patient Outreach (INTMWS) WILLIAMS BURGOS ([id number]) 1970 M Date Time Provider Department 11/26/17 CHELSEA SMITHWS During your visit today, we recorded the [...] info about counseling Chelsea Andrade RN Ambulatory Vascular Surgeon Internal Medicine [facility] November 26, 2017 Allergies As of Date: 11/26/2017 (No Known Allergies) Date Reviewed: 11/26/2017 Reviewed by: Catalina Lala LPN - Fully Assessed Reason for Visit: Vascular Surgeon Hospital Follow Up [1807] Prescriptions as of 11/26/2017 Sig: INSULIN GLARGINE [...] LEAD ELECTROCARDIOGRAM Observed: 11/22/2017 Status: F Source: [place] 1:55 PM [facility] REPOSITORY [facility] Cardiovascular Services [address] [place] [address] 12 Lead EKG 11/20/17 0455 MR#: [id number] Acct: [id number] Name: WILLIAMS BURGOS Rep #: [id number] : 1970 46 From: Tylor Rudd MD [...] now Present Confirmed by TYLOR RUDD MD ([id number]), art editor TOBY WATSON ([id number]) on 11/22/2017 1:55:11 PM Referred By: ZEUS Confirmed By:TYLOR RUDD MD 11/22/17 1355 Date Tylor Rudd MD CC: Isamar Smith; Anderson Gaston MD Signed 12 LEAD ELECTROCARDIOGRAM Observed: 11/22/2017 Status: F Source: [place] 1:32 PM [facility] REPOSITORY [facility] Cardiovascular Services [address] [place] [address] 12 Lead EKG 11/19/17 1817 MR#: [id number] Acct: [id number] Name: WILLIAMS BURGOS Rep #: [id number] : 1970 46 From: Tylor Rudd MD Attending Dr: Tammie Fang Status: DIS IN Ordering Dr: Jimenez Roman MD Date: 11/19/17 Location: ICU Sex: M C Admitted: 11/19/17 Test Reason : HTN Blood Pressure : / mmHG Vent. Rate : 097 BPM Atrial Rate : 097 BPM P-R Int : 174 ms QRS Dur : 102 ms QT Int : 380 ms P-R-T Axes : 042 -12 064 degrees QTc Int : 482 ms Sinus rhythm with frequent Premature ventricular complexes Otherwise normal ECG Confirmed by TYLOR RUDD MD ([id number]), art editor TOBY WATSON ([id number]) on 11/22/2017 1:31:44 PM Referred By: KEESHA Confirmed By:TYLOR RUDD MD 11/22/17 1331 Date Tylor Rudd MD CC: Anderson Gaston MD; Jimenez Roman Signed PROGRESS Observed: 11/22/2017 Status: COMPLETED Source: [place] 11:45 AM [facility] REPOSITORY HNO ID: [id number] Author: Chelsea Murguiahill [facility] Service: (none) Author Type: Registered Nurse Type: Progress Notes Filed: 11/29/2017 9:50 AM Note Text: TRANSITION CARE MANAGEMENT (TCM) INITIAL CONTACT Provider Action/FYI: Pt will require a lot of intervention. Coming in on 11/26 for TCM- would recc PT for strengthening, laundry or dry cleaners counter clerk, psych. Initial contact with patient post discharge, spoke to Williams. Patient identified by name and . SUMMARY: -Pt discharged from [facility] on 11/21. Adm 11/19 -Follow up appointment [...] soft drinks. He wanted to go to [employer] for dinner but GF dissuaded him. Pt [...] retinopathy R eye, severe HTN, presented to [facility] ED 11/19 with complaint of tinnitus, vision [...] interatrial shunt. Diuresed 2Ls. Diet ed by laundry or dry cleaners counter clerk given, meds adjusted, Seen by Dr Montiel and kidney protein consistent with nephrotic syndrome. GFR=25.. [facility] for counseling. Hospitalist felt his self neglect related to his depression. CNPTOUTREACH Observed: 11/22/2017 Status: COMPLETED Source: [place] 12:00 AM [facility] REPOSITORY Patient Outreach (INTMWS) WILLIAMS BURGOS ([id number]) 1970 M Date Time Provider Department 11/22/17 CHELSEA SMITH During your visit today, we recorded the following information about you: Chelsea Cottrell RN 11/29/2017 9:50 AM Signed TRANSITION CARE MANAGEMENT (TCM) INITIAL CONTACT Provider Action/FYI: Pt will require a lot of intervention. Coming in on 11/26 for TCM- would recc PT for strengthening, laundry or dry cleaners counter clerk, psych. Initial contact with patient post discharge, spoke to Williams. Patient identified by name and . SUMMARY: -Pt discharged from [facility] on 11/21. Adm 11/19 -Follow up appointment [...] soft drinks. He wanted to go to [facility] for dinner but GF dissuaded him. Pt [...] retinopathy R eye, severe HTN, presented to [facility] ED 11/19 with complaint of tinnitus, vision [...] interatrial shunt. Diuresed 2Ls. Diet ed by laundry or dry cleaners counter clerk given, meds adjusted, Seen by Dr Montiel and kidney protein consistent with nephrotic syndrome. GFR=25.. [facility] for counseling. Hospitalist felt his self neglect related to his depression. ANDERSON GASTON MD 11/29/2017 9:50 AM Signed noted Allergies As of Date: 11/22/2017 (No Known Allergies) Date Reviewed: 11/19/2017 Reviewed by: Francheska Carrington Ma - Fully Assessed Visit Diagnoses:Essential hypertension [I10] Mixed hyperlipidemia [E78.2] Order(s):HEMOGLOBIN A1C (EXTERNAL) [7401536] Order #: [id number] Prescriptions as of 11/22/2017 Sig: X METOPROLOL [...] 11/29/17 CONSULTATION Observed: 11/21/2017 Status: F Source: [place] 5:00 PM [facility] REPOSITORY [facility] Medical Records Department [address] [place] [address] Consultation 11/21/17 0857 MR#: [id number] Acct: [id number] Name: WILLIAMS BURGOS Rep #: [id number] : 1970 46 From: Loida Montiel DO [...] with his medications. He presents to the [facility] ED on 11/19/17 with an elevated blood [...] burning Aspirin (Ecotrin) 81 mg PO DAILY@0800 [facility] Last Admin: 11/21/17 08:19 Dose: 81 mg Atorvastatin Calcium (Lipitor) 40 mg PO DAILY@2200 [facility] Last Admin: 11/20/17 11:51 Dose: 40 mg Bupropion HCl (Wellbutrin Xl) 300 mg PO DAILY [facility] Last Admin: 11/21/17 08:18 Dose: 300 mg Dextrose (D50w Syringe) 0 gm IV X1 PRN; Protocol PRN Reason: Hypoglycemia Furosemide (Lasix) 40 mg PO DAILY [facility] Last Admin: 11/21/17 08:26 Dose: 40 mg Glucagon () 1 mg IM .X1 PRN PRN Reason: Hypoglycemia Heparin Sodium (Porcine) (Heparin Na) 5,000 unit SC BID [facility] Last Admin: 11/21/17 08:21 Dose: 5,000 units Hydralazine HCl (Apresoline) 20 mg IV Q4H PRN PRN PRN Reason: SBP > 160 Last Admin: 11/20/17 13:39 Dose: 20 mg Sodium Chloride () 250 mls @ 15 mls/hr IV .[id number] PRN PRN Reason: SALINE FLUSH Insulin Aspart (Novolog Flexpen (Bkc)) 0 units SC ACHS HEDY PRN Reason: Protocol Last Admin: 11/21/17 08:17 Dose: Not Given Insulin Aspart (Novolog Flexpen (Bkc)) 6 units SC TIDAC [facility] Last Admin: 11/21/17 08:17 Dose: 6 u Insulin Detemir (Levemir (Bkc)) 35 units SC BID@1100,2200 [facility] Last Admin: 11/20/17 21:18 Dose: 35 u Lisinopril (Zestril) 20 mg PO DAILY [facility] Last Admin: 11/21/17 08:20 Dose: 20 mg Magnesium Hydroxide (Milk Of Magnesia) 30 ml PO DAILY PRN PRN PRN Reason: Constipation Metoprolol Tartrate (Lopressor (Beta Elizabeth)) 50 mg PO BID [facility] Last Admin: 11/21/17 08:19 Dose: 50 mg Nutritional Formula (Lactose Free) (Glucerna Shake) 120 ml PO TIDCM [facility] Last Admin: 11/21/17 08:21 Dose: Not Given [...] DISCHARGE SUMMARY Observed: 11/21/2017 Status: F Source: [place] 9:50 AM [facility] REPOSITORY [facility] Medical Records Department [address] [place] [address] Discharge Summary 11/21/17 0923 MR#: [id number] Acct: [id number] Name: WILLIAMS BURGOS Rep #: [id number] : 1970 46 From: Anitha Fang DO PCP: Anderson Gaston MD Status: ADM IN Location: ICU ICU02-1 Discharge Date and Diagnosis [...] MCV [facility] Dr. Loida Montiel-nephrology Dr. Joao Hayes-mortgage assistant Operations: None Procedures: 2-D Echocardiogram Summary of [...] tobacco who presented to the ED at [facility] on 11/19/17 with c/o headache, vision changes, [...] restarted. Diet education was provided by the laundry or dry cleaners counter clerk. Cessation of chewing tobacco was encouraged. He [...] He has an appt with the diabetic CAN FILLER this coming on 11/26. He will follow up with Dr. Gaston in 7-[address] Montiel in 2 weeks. I spoke to him and his when she came to take him home. I have encouraged them to follow up with behavioral Health for counselling because I feel his depression is contributing to self neglect and non-compliance. This note was generated with [employer] dictation software. It may contain incorrect words, [...] 65 Code Visit Inpatient E AND M: 65036 Disch Hosp 11/21/17 0950 <Electronically signed by Anitha Fang DO> Date M Kristine Fang DO Cosigner Signature (if applicable): Date CC: Norah Adams NP; Tammie Fang; Anderson Gaston MD; Loida Montiel DO Signed DISCHARGE INSTRUCTION Observed: 11/21/2017 Status: F Source: TALI 9:23 AM [facility] REPOSITORY [facility] Medical Records Department [address] [place] [address] Instructions for Home/Discharge Instructions 11/21/17 0735 MR#: [id number] Acct: [id number] Name: LORETTAWILLIAMS D Rep #: [id number] : 1970 46 From: Anitha Fang DO [...] NP; Anderson Gaston MD; Loida Montiel DO; Joao Hayes D.O. BEDSIDE GLUCOSE Collected: 11/21/2017 Status: F Source: TALI 7:39 AM [facility] REPOSITORY TYPE CODE TESTS RESULT OUT OF RANGE REFERENCE UNITS LAB L501.080 70-110 mg/dL Normal BEDSIDE GLU 98 Result Comment: MANAGEMENT OF PATIENT CARE PER NURSING PROTOCOL Performed By: #### L501.080 #### [facility] Point of Care [address] [place] [address] BASIC METABOLIC Collected: 11/21/2017 Status: F Source: TALI PROFILE (BMP) 4:30 AM [facility] REPOSITORY TYPE CODE TESTS RESULT OUT OF [...] Performed By: #### L500.2500, L501.2300, L501.5200 #### [facility] [address] [place], [place], [id number] PHOSPHORUS Collected: 11/21/2017 Status: F Source: [place] 4:30 AM [facility] REPOSITORY TYPE CODE TESTS RESULT OUT OF RANGE REFERENCE UNITS LAB L501.2300 2.5-4.9 mg/dL Normal PHOS 3.7 Performed By: #### L500.2500, L501.2300, L501.5200 #### [facility] [address] [place], [address] MAGNESIUM Collected: 11/21/2017 Status: F Source: [place] 4:30 AM [facility] REPOSITORY TYPE CODE TESTS RESULT OUT OF RANGE REFERENCE UNITS LAB L501.5200 1.6-2.6 mg/dL Normal MG 1.8 Result Comment: Please note revised Magnesium reference range effective 2017. Performed By: #### L500.2500, L501.2300, L501.5200 #### [facility] [address] [place], [address] CBC-COMPLETE BLOOD CNT Collected: 11/21/2017 Status: F Source: TALI NO DIFF 4:30 AM [facility] REPOSITORY TYPE CODE TESTS RESULT OUT OF [...] MPV 9.4 Performed By: #### L100.0500 #### [facility] [address] [place], [address] CREATININE, URINE Collected: 11/21/2017 Status: F Source: TALI (RANDOM) 1:30 AM [facility] REPOSITORY TYPE CODE TESTS RESULT OUT OF RANGE REFERENCE UNITS LAB L501.1200 NO RANGE EST. mg/dL Normal UR CREAT 91.40 Performed By: #### L501.1200 #### [facility] [address] [place], [address] PROTEIN, URINE Collected: 11/21/2017 Status: F Source: TALI (RANDOM) 1:30 AM [facility] REPOSITORY TYPE CODE TESTS RESULT OUT OF RANGE REFERENCE UNITS LAB L501.1930 <11.9 mg/dL High 352.6 PROTEIN,UR.R AN. Performed By: #### L501.1930 #### [facility] [address] [place], [address] BEDSIDE GLUCOSE Collected: 11/20/2017 Status: F Source: TALI 9:17 PM [facility] REPOSITORY TYPE CODE TESTS RESULT OUT OF REFERENCE UNITS RANGE LAB L501.080 70-110 mg/dL High BEDSIDE GLU 162 Result Comment: MANAGEMENT OF PATIENT CARE PER NURSING PROTOCOL Performed By: #### L501.080 #### [facility] Point of Care [address] [place] [address] BEDSIDE GLUCOSE Collected: 11/20/2017 Status: F Source: TALI 5:49 PM [facility] REPOSITORY TYPE CODE TESTS RESULT OUT OF REFERENCE UNITS RANGE LAB L501.080 70-110 mg/dL High BEDSIDE GLU 147 Result Comment: MANAGEMENT OF PATIENT CARE PER NURSING PROTOCOL Performed By: #### L501.080 #### [facility] Point of Care [address] [place] [address] BASIC METABOLIC Collected: 11/20/2017 Status: F Source: [place] PROFILE (BMP) 2:35 PM [facility] REPOSITORY TYPE CODE TESTS RESULT OUT OF [...] 11 Performed By: #### L500.2500, L500.3600 #### [facility] [address] [facility] [place], [address] RENAL PROFILE Collected: 11/20/2017 Status: F Source: [place] 2:35 PM [facility] REPOSITORY TYPE CODE TESTS RESULT OUT OF RANGE REFERENCE UNITS LAB L501.1800 3.2-5.0 g/dL Low ALB 2.3 LAB L501.2300 2.5-4.9 mg/dL Normal PHOS 3.2 Performed By: #### L500.2500, L500.3600 #### [facility] [address] [facility] [address] [place], [place], [address] URINALYSIS, ROUTINE Collected: 11/20/2017 Status: F Source: [place] (DIPSTICK) 1:50 PM [facility] REPOSITORY Order Comment: How was Urine Obtained? PLANNING SPECIALIST TO SPECIFY TYPE CODE TESTS RESULT OUT [...] ESTERASE Negative Performed By: #### L400.2010 #### [facility] [address] [place], [address] BEDSIDE GLUCOSE Collected: 11/20/2017 Status: F Source: TALI 11:26 AM [facility] REPOSITORY TYPE CODE TESTS RESULT OUT OF REFERENCE UNITS RANGE LAB L501.080 70-110 mg/dL High BEDSIDE GLU 310 Result Comment: MANAGEMENT OF PATIENT CARE PER NURSING PROTOCOL Performed By: #### L501.080 #### [facility] Point of Care [address] [place] [address] ABDOMEN/PELVIS WITHOUT Observed: 11/20/2017 Status: F Source: TALI CONT 10:41 AM [facility] REPOSITORY [facility] Imaging Services [address] [place] [address] Abdomen/Pelvis without Cont MR#: [id number] Acct: [id number] Name: WILLIAMS BURGOS Rep #: [id number] : 1970 M 46 From: Neli Watson MD PCP: Anderson Gaston MD Status: ADM IN Study: Abdomen/Pelvis without Cont Date of Exam: 11/20/17 Exam# [id number] Ordering Dr: Anitha Fang DO STUDY: CT [...] , CC: Tammie Fang; Anderson Gaston MD Rig Supervisor: Signed ECHOCARDIOGRAM COMPLETE Observed: 11/20/2017 Status: F Source: [place] 10:33 AM [facility] REPOSITORY [facility] Cardiovascular Services [address] [place] [address] Echo Complete 11/20/17 0638 MR#: [id number] Acct: [id number] Name: WILLIAMS BURGOS Rep #: [id number] : 1970 46 From: Mayo Miguel MD [...] Referring Physician: Anderson Gaston Performed By: Cherri Marie, BO 11/20/17 1033 Date Mayo Mgiuel MD CC: Isamar Gaston MD Date Dictated: 11/20/17 0638 Date Transcribed: 11/20/17 1033 Rig Supervisor: Signed CONSULTATION Observed: 11/20/2017 Status: F Source: TALI 10:21 AM [facility] REPOSITORY [facility] Medical Records Department [address] [place] [address] Consultation 11/20/17 0707 MR#: [id number] Acct: [id number] Name: BURGOSWILLIAMS Mery Rep #: [id number] : 1970 46 From: Joao Hayes DO [...] is suggested. This note was generated with [employer] software. It may contain incorrect words, spelling, and punctuation that were not noted in checking the note before signing. Code Visit Inpatient E AND M: 76069 Init Hosp L3 11/20/17 1021 <Electronically signed by Joao Hayes DO> Date Joao Hayes DO Cosigner Signature (if applicable): Date CC: Anderson Gaston MD; Joao Hayes D.O. Signed TROPONIN-I Collected: 11/20/2017 Status: F Source: TALI 7:40 AM [facility] REPOSITORY Order Comment: 'TROP' Serial specimen #1, #2, #3, or #4: 4 TYPE CODE TESTS RESULT OUT OF RANGE REFERENCE UNITS LAB L501.4010 <0.06 ng/mL Normal 0.02 TROPONIN-I Result Comment: TROPONIN-I EXPECTED VALUES <0.05 NEGATIVE 0.06 - 0.59 AT RISK OF LA > OR = 0.60 SUGGEST LA Performed By: #### L501.4010 #### [facility] [place], [address] BASIC METABOLIC Collected: 11/20/2017 Status: F Source: [place]I PROFILE (BMP) 6:25 AM [facility] REPOSITORY Order Comment: REDRAW. PREVIOUS SPECIMEN REJECTED [...] 8 Performed By: #### L500.2500, L500.4100 #### [facility] [facility] [place], [place], [address] LIPID PROFILE Collected: 11/20/2017 Status: F Source: [place] 6:25 AM [facility] REPOSITORY Order Comment: REDRAW. PREVIOUS SPECIMEN REJECTED [...] 28 Performed By: #### L500.2500, L500.4100 #### [facility] [address] [facility] [facility] [address] [place], [place], [address] CBC-COMPLETE BLOOD CNT Collected: 11/20/2017 Status: F Source: TALI NO DIFF 5:45 AM [facility] REPOSITORY TYPE CODE TESTS RESULT OUT OF [...] MPV 10.6 Performed By: #### L100.0500 #### [facility] [address] [facility] [place], [place], [address] TROPONIN-I Collected: 11/20/2017 Status: F Source: TALI 1:40 AM [facility] REPOSITORY Order Comment: 'TROP' Serial specimen #1, #2, #3, or #4: 3 TYPE CODE TESTS RESULT OUT OF RANGE REFERENCE UNITS LAB L501.4010 <0.06 ng/mL Normal 0.03 TROPONIN-I Result Comment: TROPONIN-I EXPECTED VALUES <0.05 NEGATIVE 0.06 - 0.59 AT RISK OF LA > OR = 0.60 SUGGEST LA Performed By: #### L501.4010 #### [facility] [address] [place], [address] EMERGENCY DEPARTMENT Observed: 11/20/2017 Status: F Source: [place] SUMMARY 12:10 AM [facility] REPOSITORY [facility] Medical Records Department [address] [place] [address] Emergency Department Summary 11/19/172004 MR#: [id number] Acct: [id number] Name: WILLIAMS BURGOS Rep #: [id number] : 1970 46 From: Jimenez Roman MD [...] Medication noncompliance This note was generated with [employer] dictation software. It may contain incorrect words, spelling, and punctuation that were not noted in review of the chart prior to signing ED Disposition - Plan for ED Patient: Chief Complaint: General Illness Referrals: Anderson Gaston MD [Primary Care Provider] - What to do if you have Problems For any increased pain, shortness of breath, bleeding, nausea or vomiting, chest pain, or any unexpected problems, contact your Primary Care Provider. Call [facility] ([phone]) or report to the closest Emergency Room. Call 911 if necessary. 11/20/17 0010 <Electronically signed by Jimenez Roman MD> Date Jimenez Roman MD Cosigner Signature (If Indicated): Date CC: Anderson Gaston MD MAGNESIUM Collected: 11/19/2017 Status: F Source: TALI 10:10 PM [facility] REPOSITORY TYPE CODE TESTS RESULT OUT OF RANGE REFERENCE UNITS LAB L501.5200 1.6-2.6 mg/dL Normal MG 1.9 Result Comment: Please note revised Magnesium reference range effective 2017. Performed By: #### L501.5200, L501.9520 #### [facility] [address] [place], [place], [address] THYROID STIM HORMONE Collected: 11/19/2017 Status: F Source: TALI (TSH) 10:10 PM [facility] REPOSITORY TYPE CODE TESTS RESULT OUT OF RANGE REFERENCE UNITS LAB L501.9520 0.358-3.74 uIU/mL Normal TSH 3.13 Performed By: #### L501.5200, L501.9520 #### [facility] [address] [facility] [place], [address] TROPONIN-I Collected: 11/19/2017 Status: F Source: TALI 10:10 PM [facility] REPOSITORY Order Comment: 'TROP' Serial specimen #1, #2, #3, or #4: 2 TYPE CODE TESTS RESULT OUT OF RANGE REFERENCE UNITS LAB L501.4010 <0.06 ng/mL Normal 0.04 TROPONIN-I Result Comment: TROPONIN-I EXPECTED VALUES <0.05 NEGATIVE 0.06 - 0.59 AT RISK OF LA > OR = 0.60 SUGGEST LA Performed By: #### L501.4010 #### [facility] [facility] [address] [facility] [address] [place], [place], [address] BEDSIDE GLUCOSE Collected: 11/19/2017 Status: F Source: TALI 10:04 PM [facility] REPOSITORY TYPE CODE TESTS RESULT OUT OF REFERENCE UNITS RANGE LAB L501.080 70-110 mg/dL High BEDSIDE GLU 190 Result Comment: MANAGEMENT OF PATIENT CARE PER NURSING PROTOCOL Performed By: #### L501.080 #### [facility] Point of Care [address] [facility] [place], [place] [address] M R STAPH AUREUS Collected: 11/19/2017 Status: F Source: TALI DNA BY PCR 9:25 PM [facility] REPOSITORY TYPE CODE TESTS RESULT OUT OF REFERENCE UNITS RANGE LAB L8200.1100 Negative High MRSA POSITIVE RESULT Result Comment: CALLED TO A. WIERZBICKI 11/19/17 AT 2312 BY BABAR Performed By: #### L8200.1000 #### [facility] [address], [address] HISTORY AND PHYSICAL Observed: 11/19/2017 Status: F Source: [place] EXAM 9:21 PM [facility] REPOSITORY [facility] Medical Records Department [address] [place] [address] History and Physical 11/19/179 MR#: [id number] Acct: [id number] Name: WILLIAMS BURGOS Rep #: [id number] : 1970 46 From: Isamar Smith PCP: Anderson Gaston MD Status: ADM IN Y Location: ICU ICU02-1 Problem List (1) HTN (hypertension) Status: Chronic Qualifiers: Hypertension type: essential hypertension Qualified Code(s): I10 - Essential (primary) hypertension (2) HLD (hyperlipidemia) Status: Chronic Qualifiers: Hyperlipidemia type: unspecified Qualified Code(s): E78.5 - Hyperlipidemia, unspecified (3) Blind left eye Status: Chronic (4) Diabetes mellitus type II, uncontrolled Status: Chronic Qualifiers: 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 Code Visit Inpatient E AND M: 05683 Init Hosp L3 11/19/172120 <Electronically signed by Isamar Smith > Date Isamar Smith Cosigner Signature: Date (if applicable) CC: Isamar Smith; Anderson Gaston MD Signed BEDSIDE GLUCOSE Collected: 11/19/2017 Status: F Source: TALI 7:21 PM [facility] REPOSITORY TYPE CODE TESTS RESULT OUT OF REFERENCE UNITS RANGE LAB L501.080 70-110 mg/dL High BEDSIDE GLU 281 Result Comment: Orders Followed MANAGEMENT OF PATIENT CARE PER NURSING PROTOCOL Performed By: #### L501.080 #### [facility] Point of Care [address] [place], [place] [address] CBC W/DIFF, AUTOMATED Collected: 11/19/2017 Status: F Source: TALI 6:15 PM [facility] REPOSITORY TYPE CODE TESTS RESULT OUT OF [...] Lymph 1.38 Performed By: #### L100.0100 #### [facility] [address] [place], [place], [address] BASIC METABOLIC Collected: 11/19/2017 Status: F Source: TALI PROFILE (BMP) 6:15 PM [facility] REPOSITORY Order Comment: 'TROP' Serial specimen #1, [...] 6 Performed By: #### L500.2500, L501.4010 #### [facility] [address] [facility] [place], [address] TROPONIN-I Collected: 11/19/2017 Status: F Source: LAK[place] 6:15 PM [facility] REPOSITORY Order Comment: 'TROP' Serial specimen #1, #2, #3, or #4: 1 TYPE CODE TESTS RESULT OUT OF RANGE REFERENCE UNITS LAB L501.4010 <0.06 ng/mL Normal 0.03 TROPONIN-I Result Comment: TROPONIN-I EXPECTED VALUES <0.05 NEGATIVE 0.06 - 0.59 AT RISK OF LA > OR = 0.60 SUGGEST LA Performed By: #### L500.2500, L501.4010 #### [facility] [address] [facility] [place], [address] HEMOGLOBIN A1C Collected: 11/19/2017 Status: F Source: [place] 6:15 PM [facility] REPOSITORY TYPE CODE TESTS RESULT OUT OF RANGE REFERENCE UNITS LAB L501.9985 4.2-6.3 % High HGB A1C 10.5 Performed By: #### L501.9985 #### [facility] [address] [facility] [place], [address] BEDSIDE GLUCOSE Collected: 11/19/2017 Status: F Source: [place]AK[place] 6:14 PM [facility] REPOSITORY TYPE CODE TESTS RESULT OUT OF REFERENCE UNITS RANGE LAB L501.080 70-110 mg/dL High BEDSIDE GLU 363 Result Comment: MANAGEMENT OF PATIENT CARE PER NURSING PROTOCOL Performed By: #### L501.080 #### [facility] Point of Care [address] [facility] [place] [address] BRAIN/HEAD WITHOUT Observed: 11/19/2017 Status: F Source: [place] CONTRAST 6:05 PM [facility] REPOSITORY [facility] Imaging Services [address] [facility] [place] [address] Brain/Head without Contrast MR#: [id number] Acct: [id number] Name: WILLIAMS BURGOS Mery Rep #: [id number] : 1970 M 46 From: Neli Watson MD PCP: Anderson Gaston MD Status: REG ER Study: Brain/Head without Contrast Date of Exam: 11/19/17 Exam# [id number] Ordering Dr: Jimenez Roman MD STUDY: CT BRAIN WITHOUT CONTRAST REASON [...] , CC: Anderson Gaston MD; Jimenez Roman Rig Supervisor: Signed CHEST 1 VIEW Observed: 11/19/2017 Status: F Source: LAKIN 6:05 PM [facility] REPOSITORY [facility] Imaging Services [facility] [address] Chest 1 View MR#: [id number] Acct: [id number] Name: WILLIAMS BURGOS Rep #: [id number] : 1970 M 46 From: Neli Watson MD PCP: Anderson Gaston MD Status: REG ER Study: Chest 1 View Date of Exam: 11/19/17 Exam# [id number] Ordering Dr: Jimenez Roman MD STUDY: X-RAY [...] , CC: Anderson Gaston MD; Jimenez Roman Rig Supervisor: Signed PROGRESS Observed: 11/19/2017 Status: COMPLETED Source: [place] 5:17 PM [facility] REPOSITORY HNO ID: [id number] Author: Lawanda Hamilton Service: (none) Author Type: [...] and lack of investigative tools available at [facility], recommend patient be seen at nearest ED for further work up of hearing loss r/o stroke. Patient transported to [facility] via car by . 2. Type 2 [...] in detail warranting prompt ER evaluation. Lawanda Hamilton, [employer] CNOV Observed: 11/19/2017 Status: COMPLETED Source: [place] 5:00 PM [facility] REPOSITORY Office Visit (UCWSTR) BURGOSWILLIAMS FONG ([id number]) 1970 M Date Time Provider Department 11/19/17 5:00 PM LAWANDA HAMILTON (ANDRE) WSTR During your visit today, we recorded the [...] and lack of investigative tools available at [facility], recommend patient be seen at nearest ED for further work up of hearing loss r/o stroke. Patient transported to [facility] via car by . 2. Type 2 [...] of insulin (HCC) [E11.8] Order(s):GLUCOSE, BLOOD (POC) [7531002] Order #: [id number] GLUCOSE, BLOOD (POC) [8020456] Order #: [id number]. #:[id number] Prescriptions as of 11/19/2017 Sig: METOPROLOL TARTRATE [...] 11/19/17 PROGRESS Observed: 11/12/2017 Status: COMPLETED Source: [place] 5:21 PM [facility] REPOSITORY HNO ID: [id number] Author: Anderson Gaston Service: (none) Author Type: Physician Type: Progress Notes Filed: 11/12/2017 5:24 PM Note Text: Reason for Visit No chief complaint on file. Williams Burgos is a 46 year old male who presents here today for Above Complaints.. Health Maintenance DIABETIC FOOT EXAM LDL HBA1C HPI Uncontrolled type 2 diabetes mellitus with complication, with long-term current use of insulin (HCC) Williams notes that he does not take [...] DM type 2, goal HbA1c < 7% ([facility]) - GERD (gastroesophageal reflux disease) - [...] MD CNOV Observed: 11/12/2017 Status: COMPLETED Source: [place] 4:00 PM [facility] REPOSITORY Office Visit (INTMWS) WILLIAMS BURGOS ([id number]) 1970 M Date Time Provider Department 11/12/17 4:00 PM ANDERSON GASTON INTMWS During your visit today, we recorded the following information about you: Pulse Respiration Blood pressure Weight 97/minute 12/minute 170/88 97.5 kg Height 1.727 m ANDERSON GASTON MD 11/12/2017 4:36 PM Written Williams notes that he does not take [...] complication, with long-term current use of insulin ([facility]) Williams notes that he does not [...] ANDERSON GASTON MD Referring Provider: ANDERSON GASTON [[id number]] Allergies As of Date: 11/12/2017 (No Known Allergies) Date Reviewed: 11/12/2017 Reviewed by: Catalina Lala LPN - Fully Assessed Primary Visit Diagnosis:Diabetic polyneuropathy associated with type 2 diabetes mellitus (HCC) [E11.42] Other Visit Diagnoses:Uncontrolled type 2 diabetes mellitus with complication, with long-term current use of insulin (HCC) [E11.8, E11.65, Z79.4] Essential hypertension [I10] Hypertension goal BP (blood pressure) < 140/90 [I10] Order(s):HGB A1C [XWKUS2C] Order #: [id number] FUTURE ALBUMIN/CREAT RATIO RND UR [SQUACR] Order #: [id number] FUTURE metoprolol tartrate, short acting, (LOPRESSOR) 25 mg tabletTake 1 tablet by mouth twice daily.Disp: 60 tabletRfl: 3 CBC + DIFF [SQCBCDIF] Order #: [id number] FUTURE COMP METABOLIC PANEL [SQCMP] Order #: [id number] FUTURE LIPID PANEL BASIC [SQLIPB] Order #: [id number] FUTURE Prescriptions as of 11/12/2017 Sig: PEG [...] HISTORY PHYSICAL Observed: 11/12/2017 Status: COMPLETED Source: [place] 9:05 AM [facility] REPOSITORY [facility] ID: [id number] Author: Timmy Chappell Service: (none) Author Type: [...] patient, discussion and counseling. Timmy Chappell RN [employer] CNOV Observed: 11/12/2017 Status: COMPLETED Source: [place] 9:00 AM [facility] REPOSITORY [facility] WILLIAMS BURGOS ([id number]) 1970 M Date Time Provider Department 11/12/17 9:00 AM TIMMY CHAPPELL ([facility]) [facility] During your visit today, we recorded the following information about you: Pulse Blood pressure Weight Height 97/minute 204/131 98.4 kg 1.727 m Edwige Pike MA 11/12/2017 9:04 AM Signed Pt states did not take BP medicine this morning. Edwige Chappell RN CNP 11/12/2017 6:17 PM Signed Williams Burgos a [...] discussion and counseling. ANDER Hook CNP, RN CNP 11/12/2017 9:52 AM Signed Please follow the provided instructions for upper endoscopy and colonoscopy. You will be using GoLytely as the laxative during the preparation. You may start the laxative as early as 1:00 in the afternoon. You will have the deeper sedation we call MAC. This will be done in [place]. The production control scheduler will contact you to schedule your procedures. Referring Provider: FRANCES KAUFMAN ([facility]) [[id number]] Allergies As of Date: 11/12/2017 (No Known Allergies) Date Reviewed: 11/12/2017 Reviewed by: Catalina Lala LPN - Fully Assessed Reason for Visit: Abdominal Pain [1] Primary Visit Diagnosis:Nausea and vomiting, intractability of vomiting not specified, unspecified vomiting type [R11.2] Other Visit Diagnoses:Epigastric pain [R10.13] Diarrhea, unspecified type [R19.7] Order(s):EGD GEN ANES [4444653] Order #: [id number] FUTURE COLONOSCOPY GEN ANES [0050960] Order #: [id number] FUTURE peg 3350-electrolytes (COLYTE) 240-22.72-6.72 -5.84 gram [...] call MAC. This will be done in [place]. The production control scheduler will contact you to schedule your [...] GASTRIC EMPTYING Observed: 10/31/2017 Status: F Source: [place] SOLID 4:28 PM [facility] REPOSITORY * * *Final Report* * * [...] OF GASTRIC EMPTYING OF A SOLID MEAL. Rig Supervisor: FIDENCIO Transcribe Date/Time: Oct 31 2017 4:29P Dictated by : ALMA MESA MD This examination was interpreted and the report reviewed and electronically signed by: JAMEE DRAKE MD on Oct 31 2017 4:51PM EST [id number] Observed: 10/31/2017 Status: COMPLETED Source: [place] 2:54 PM [facility] REPOSITORY HNO ID: [id number] Author: Ary Michele Service: (none) Author Type: (none) Type: [...] 12:10 PATIENT DISCHARGED TO: Ambulatory patient, left [place] department area. A Diagnostic radioactive procedure has taken place, with no further precautions necessary other than routine body substance precautions. More information regarding radiation safety can be found using this link: [email or web address] SIGNATURE: Ary Simpson [employer] PATIENT NAME: Williams Burgos DATE: October 31, 2017 TIME: 2:55 PM PAGER/CONTACT #: US ABDOMEN COMPLETE Observed: 10/28/2017 Status: F Source: [place] 10:51 AM [facility] REPOSITORY * * *Final Report* * * DATE OF EXAM: Oct 28 2017 10:51AM U 1040 - US ABDOMEN COMPLETE / PROCEDURE [...] nonvisualized. 1.2 cm right renal cyst/cystic lesion. Rig Supervisor: FIDENCIO Transcribe Date/Time: Oct 28 2017 11:04A Dictated by : JOANA LORENZANA MD This examination was interpreted and the report reviewed and electronically signed by: JOANA LORENZANA MD on Oct 28 2017 11:11AM EST [id number] Observed: 10/28/2017 Status: COMPLETED Source: [place] 10:08 AM [facility] REPOSITORY HNO ID: [id number] Author: Elsi Michele Service: (none) Author Type: [...] AM PROGRESS Observed: 10/24/2017 Status: COMPLETED Source: [place] 3:17 PM [facility] REPOSITORY HNO ID: [id number] Author: Frances Huston) Older Service: (none) Author Type: Nurse Practitioner Type: [...] DM type 2, goal HbA1c < 7% ([facility]) - GERD (gastroesophageal reflux disease) - [...] medications and testing and coordinating care. Frances Kaufman, ANDRE Prescription instructions reviewed with patient as applicable. Potential red flag symptoms discussed with the patient. Reviewed appropriate action plan to take if red flag symptoms occur. Patient agreeable to treatment plan. ALLERGIES ALLERGIES DATE TYPE / CODE NAME / CODE REACTION SEVERITY SOURCE 09/16/2018 Drug No Known Unknown [facility] Allergy/416 Allergies/J22048 Hospital 791566(SNOM 0388(RXNORM) Repository ED CT) Drug NO KNOWN [facility] Class/40722 ALLERGIES [facility] 1003(SNOMED Repository CT) ENCOUNTERS ENCOUNTERS ADMIT/DISCHARGE ACCOUNT ADMITTING ENCOUNTER LOCATION SOURCE NUMBER CLASS 09/16/2018/09/16/19 [id number] Ambulatory BMSBuilding:B Tali 19 [facility] Repository 08/30/2018/08/31/20 [id number] Ambulatory [address] Repository 08/28/2018 [id number] Ambulatory [facility] ing:[facility] Repository 08/26/2018/08/29/20 [id number] [facility]ruti Jara [facility] Repository [id number]: 1 08/26/2018 [id number] Shruti Jara Ambulatory BMSBuilding:B Tali Roma MS.[facility] Repository 08/26/2018 [id number] Shruti Jara Ambulatory BMSBuilding:B Tali Roma MS.[facility] Repository 08/26/2018 [id number] Shruti Jara Ambulatory BMSBuilding:B Tali Roma MS.[facility] Repository 08/26/2018 [id number] Shruti Jara Ambulatory BMSBuilding:Heena Brandon MS.[facility] Repository 08/26/2018 [id number] Shruti Jara Ambulatory BMSBuilding:Heena Brandon MS.[facility] Repository 08/26/2018 [id number] Marek Shruti Ambulatory BMSBuilding:Heena Brandon MS.[facility] Repository 08/26/2018 [id number] Ambulatory [facility] Hospital ing:LAB.FUTUR Repository E 08/26/2018 [id number] Ambulatory [facility] Hospital ing:LAB.FUTUR Repository E 08/22/2018 [id number] Ambulatory BMSBuilding:W [facility] Repository 08/21/2018/08/25/20 [id number] Luiss, Inpatient [facility]PC[facility]oom: Repository [id number]: 1 08/21/2018 [id number] Wilfredtsonis, Ambulatory BMSBuilding:Heena Mckay MS.[facility] Repository 08/21/2018 [id number] Kotsonis, Ambulatory BMSBuilding:Heena Mckay MS.[facility] Repository 08/21/2018 [id number] Kotsonis, Ambulatory BMSBuilding:Heena Mckay MS.[facility] Repository 08/21/2018 [id number] Kotsonis, Ambulatory BMSBuilding:Heena Mckay MS.[facility] Repository 08/21/2018 [id number] Kotsonis, Ambulatory BMSBuilding:Heena Mckay MS.[facility] Repository 08/21/2018 [id number] Kotsonis, Ambulatory BMSBuilding:Heena Mckay MS.[facility] Repository 08/21/2018/08/25/20 [id number] Ambulatory BMSBuilding:W [address] Repository 08/19/2018/08/20/20 [id number] Ambulatory [address] Repository 08/13/2018/08/14/20 [id number] Ambulatory [address] Repository 08/08/2018/08/08/20 [id number] Ambulatory BMSBuilding:B [place] 18 [place].[facility] Repository 08/08/2018/08/08/20 [id number] Ambulatory [address] Hospital ing:SDCRoom: Repository AC16 07/18/2018/07/18/20 [id number] Ambulatory BMSBuilding:B Tali 18 [facility] Repository 07/17/2018 [id number] Ambulatory [facility] Hospital ing:[facility] Repository 07/17/2018 [id number] Ambulatory BMSBuilding:Heena Cesar MS.[facility] Repository 07/16/2018/07/16/20 [id number] Ambulatory [address] Repository 07/16/2018/07/16/20 [id number] Ambulatory [address] Repository 07/16/2018/07/16/20 [id number] Ambulatory [address] Repository 07/16/2018/07/17/20 [id number] Ambulatory [address] Repository 07/11/2018 [id number] Ambulatory [facility] Hospital ing:LAB.FUTUR Repository E 07/10/2018 [id number] Ambulatory [facility] Hospital ing:POLAB3 Repository 07/01/2018 [id number] Ambulatory [facility] Hospital ing:LAB.FUTUR Repository E 06/25/2018/06/26/20 [id number] Ambulatory [address] Repository 06/11/2018/06/16/20 [id number] Ambulatory [address] Repository 05/19/2018/05/19/20 [id number] Ambulatory [address] Repository 05/19/2018/05/20/20 [id number] Ambulatory [address] Repository 03/04/2018 [id number] Ambulatory BMSBuilding:B Tali MS.[facility] Repository 03/02/2018/03/02/20 [id number] Emergency [address] Hospital ing:ED Repository 02/25/2018 [id number] Ambulatory [facility] Hospital ing:LAB.FUTUR Repository E 02/24/2018 [id number] Ambulatory [facility] Hospital ing:PSN Repository 02/24/2018 [id number] Ambulatory BMSBuilding:W Tali [facility] Repository 02/19/2018/02/20/20 [id number] Ambulatory BMSBuilding:B Tali 18 MS.[facility] Repository 02/11/2018 [id number] Ambulatory BMSBuilding:Heena Cesar MS.[facility] Repository 01/30/2018 [id number] Ambulatory BMSBuilding:Heena Cesar MS.[facility] Repository 01/20/2018/01/21/20 [id number] Ambulatory BMSBuilding:B Tali 18 [facility] Repository 01/17/2018/01/18/20 [id number] Ambulatory [address] Repository 01/15/2018 [id number] Ambulatory [facility] Repository 12/30/2017 [id number] Ambulatory [facility] Hospital ing:LAB.FUTUR Repository E 12/26/2017 [id number] Ambulatory BMSBuilding:Heena Cesar MS.[facility] Repository 12/25/2017 [id number] Ambulatory [facility] Hospital ing:POLAB3 Repository 12/22/2017/12/23/19 [id number] Emergency [address] Hospital ing:ED Repository 12/19/2017 [id number] Ambulatory BMSBuilding:B Tali MS.[facility] Repository 12/17/2017/12/18/19 [id number] Ambulatory BMSBuilding:B [place] 18 MS.[facility] Repository 12/16/2017/12/20/19 [id number] Ambulatory [address] Repository 12/13/2017 [id number] Ambulatory [facility] Hospital ing:CCN Repository 12/11/2017 [id number] Ambulatory BMSBuilding:B Tali MS.[facility] Repository 12/10/2017/12/15/19 [id number] Yonathan, Inpatient Talifreddy Garza Encounter [facility] ing:PCURoom: Repository [id number]: 1 12/10/2017 [id number] Yonathan, Ambulatory BMSBuilding:Heena Garza MS.[facility] Repository 12/10/2017 [id number] Yonathan, Ambulatory BMSBuilding:Heena Garza MS.[facility] Repository 12/10/2017 [id number] Yonathan, Ambulatory BMSBuilding:Heena Garza MS.[facility] Repository 12/10/2017 [id number] Yonathan, Ambulatory BMSBuilding:Heena Garza MS.[facility] Repository 12/02/2017/12/07/19 [id number] Ambulatory BMSBuilding:W [address] Repository 11/28/2017/12/07/19 [id number] Paintsil, Sharon Inpatient [address] ing:PCURoom: Repository AJJ295Pew: 1 11/28/2017 [id number] Paintsil, Sharon Ambulatory BMSBuilding:Heena Cesar MS.[facility] Repository 11/28/2017 [id number] Paintsil, Sharon Ambulatory BMSBuilding:Heena Cesar MS.[facility] Repository 11/28/2017 [id number] Paintsil, Sharon Ambulatory BMSBuilding:Heena Cesar MS.[facility] Repository 11/28/2017 [id number] Paintsil, Sharon Ambulatory BMSBuilding:Heena Cesar MS.[facility] Repository 11/28/2017 [id number] Paintsil, Sharon Ambulatory BMSBuilding:W [facility] Repository 11/28/2017 [id number] Paintsil, Sharon Ambulatory BMSBuilding:Heena SANTIAGO.[facility] Repository 11/28/2017 [id number] Paintsil, Sharon Ambulatory BMSBuilding:Heena Cesar MS.[facility] Repository 11/28/2017 [id number] Paintsil, Sharon Ambulatory BMSBuilding:W [facility] Repository 11/28/2017 [id number] Paintsil, Sharon Ambulatory BMSBuilding:Heena Cesar MS.[facility] Repository 11/28/2017 [id number] Paintsil, Sharon Ambulatory BMSBuilding:Heena Cesar MS.CF.[facility] Repository 11/28/2017 [id number] Paintsil, Sharon Ambulatory BMSBuilding:[facility] Repository 11/28/2017 [id number] Paintsil, Sharon Ambulatory BMSBuilding:Heena Cesar MS.CF.[facility] Repository 11/28/2017 [id number] Paintsil, Sharon Ambulatory BMSBuilding:Heena Cesar MS.[facility] Repository 11/28/2017 [id number] Paintsil, Sharon Ambulatory BMSBuilding:[facility] Repository 11/28/2017 [id number] Paintsil, Sharon Ambulatory BMSBuilding:Heena Cesar MS.CF.[facility] Repository 11/28/2017 [id number] Paintsil, Sharon Ambulatory BMSBuilding:Heena Cesar MS.[facility] Repository 11/28/2017 [id number] Paintsil, Sharon Ambulatory BMSBuilding:Heena Cesar MS.[facility] Repository 11/26/2017/12/03/19 [id number] Ambulatory [address] Repository 11/20/2017/11/22/19 [id number] Ambulatory BMSBuilding:[address] Repository 11/19/2017/11/22/19 [id number] White, Isamar Inpatient [address] Hospital ing:ICURoom: Repository [id number]: 1 11/19/2017 [id number] White, Isamar Ambulatory BMSBuilding:Heena Cesar MS.[facility] Repository 11/19/2017 [id number] White, Isamar Ambulatory BMSBuilding:Heena Cesar MS.CF.[facility] Repository 11/19/2017 [id number] White, Isamar Ambulatory BMSBuilding:Heena Cesar MS.[facility] Repository 11/19/2017 [id number] White, Isamar Ambulatory BMSBuilding:Heena Cesar MS.CF.[facility] Repository 11/19/2017 [id number] White, Isamar Ambulatory BMSBuilding:Heena Cesar MS.[facility] Repository 11/19/2017/11/22/19 [id number] Ambulatory BMSBuilding:Hal Cesar 18 [facility] Repository 11/19/2017/11/21/19 [id number] Ambulatory [address] Repository 11/12/2017/11/14/19 [id number] Ambulatory [address] Repository 11/12/2017/11/15/19 [id number] Ambulatory [address] Repository 10/31/2017/10/31/19 [id number] Ambulatory [address] Repository 10/28/2017/10/28/19 [id number] Ambulatory [address] Repository 10/24/2017/10/24/19 [id number] Ambulatory [address] Repository PAYERS PAYERS ENCOUNTER GUARANTOR PAYER SUBSCRIBER SOURCE 09/16/2018 WILLIAMS D Primary WILLIAMS D Tali [id number] Insurance:HUMANA BEASLEYDOB: [facility] [place] [facility] [id number] Number: Repository [address]Hft: 330 [id number] [phone] () Date:9989-08-67DG[address] [address]JV: 09/16/2018 Secondary NOT GIVENUNK Tali Insurance:SELF PAY [facility] Number: Effective Repository Date:2018-09-13 08/28/2018 WILLIAMS D Primary WILLIAMS D Tali [id number] Insurance:HUMANA BEASLEYDOB: Community [place]icy [id number] Number: Repository [address]Wnl: 330 [id number] [phone] () Date:1329-64-16GM[address] [address]IK: 08/28/2018 Secondary NOT GIVENUNK [place] Insurance:SELF PAY [facility] Number: Effective Repository Date:2018-08-26 08/26/2018 WILLIAMS D Primary WILLIAMS D [place] [id number] Insurance:HUMANA BEASLEYDOB: [facility] [id number], [place] Number: Repository [address]Hkk: 330 [id number] [phone] (HP) Date:9217-58-02PY [address] [place] [address]CZ: 08/26/2018 Secondary NOT GIVENUNK T[place] Insurance:SELF PAY [facility] Number: Effective Repository Date:2018-08-26 08/26/2018 WILLIAMS D Primary WILLIAMS D [place] [id number] Insurance:HUMANA BEASLEYDOB: [facility] [id number] Affairs Medical Center [place] Number: Repository [address]Cbc: 330 [id number] [phone] (HP) Date:5041-98-08MV [address] [place] [address]RH: 08/26/2018 Secondary NOT GIVENUNK [place] Insurance:SELF PAY [facility] Number: Effective Repository Date:2018-08-26 08/26/2018 WILLIAMS D Primary WILLIAMS D Tali [id number] Insurance:HUMANA BEASLEYDOB: [facility] PP[facility] [id number] Number: Repository [address]Vqd: 330 [id number] [phone] (HP) Date:8304-80-40WG [address] [place] [address]QS: 08/26/2018 Secondary NOT GIVENUNK Tali Insurance:SELF PAY [facility] Number: Effective Repository Date:2018-08-26 08/26/2018 WILLIAMS D Primary WILLIAMS D Tali [id number] Insurance:HUMANA BEASLEYDOB: [facility] PP[facility]icy [id number] Number: Repository [address]Gch: 330 [id number] [phone] (HP) Date:6530-77-05XA [address] [place] [address]WP: 08/26/2018 Secondary NOT GIVENUNK Tali Insurance:SELF PAY [facility] Number: Effective Repository Date:2018-08-26 08/26/2018 WILLIAMS D Primary WILLIAMS D Tali [id number] Insurance:HUMANA BEASLEYDOB: Community [place] PP[place] [id number], [place] Number: Repository [address]Pgp: 330 [id number] [phone] (HP) Date:5255-82-55VK [address] [address]ND: 08/26/2018 Secondary NOT GIVENUNK [place] Insurance:SELF PAY [facility] Number: Effective Repository Date:2018-08-26 08/26/2018 WILLIAMS D Primary WILLIAMS D [place] [id number] Insurance:HUMANA BEASLEYDOB: [facility] [place] PP[place]icy [id number] Affairs Medical Center [place] Number: Repository [address]Bye: 330 [id number] [phone] (HP) Date:6108-31-65WF [address] [address]LP: 08/26/2018 Secondary NOT GIVENUNK [place] Insurance:SELF PAY [facility] Number: Effective Repository Date:2018-08-26 08/26/2018 WILLIAMS D Primary WILLIAMS D [place] [id number] Insurance:HUMANA BEASLEYDOB: [facility] [place] PP[place]icy [id number] Affairs Medical Center [place] Number: Repository [address]Fbl: 330 [id number] [phone] (HP) Date:7769-28-27DO [address] [address]QI: 08/26/2018 Secondary NOT GIVENUNK [place] Insurance:SELF PAY [facility] Number: Effective Repository Date:2018-08-26 08/26/2018 WILLIAMS D Primary NOT GIVENUNK [place] [id number] Insurance:[place]LF [place] [facility] [place] Number: Effective Repository [address]Qpv: (330) Date:2018-08-26 [id number] (HP) 08/26/2018 WILLIAMS D Primary WILLIAMS D Tali [id number] Insurance:HUMANA BEASLEYDOB: [facility] [place] PP[place]icy [id number] Regional Medical [facility], [place] Number: Repository [address]Tqs: 330 [id number] [phone] (HP) Date:9400-11-22GE [address] [address]IT: 08/26/2018 Secondary NOT GIVENUNK T[place] Insurance:SELF PAY [facility] Number: Effective Repository Date:2018-08-26 08/22/2018 WILLIAMS D Primary WILLIAMS D [place] [id number] Insurance:HUMANA BEASLEYDOB: Community [place] PPOP[place]icy [id number] Regional Medical Center, [place] Number: Repository [address]Ntw: (330 [id number] [phone] (HP) Date:5458-67-38YU [address] [address]KQ: 08/22/2018 Secondary NOT GIVENUNK [place] Insurance:SELF PAY [facility] Number: Effective Repository Date:2018-08-22 08/21/2018 WILLIAMS D Primary WILLIAMS D Tali [id number] Insurance:HUMANA BEASLEYDOB: [facility] [id number] Regional Medical [facility] Number: Repository [address]Qrd: 330 [id number] [phone] (HP) Date:9728-86-07QM [address] [address]XC: 08/21/2018 Secondary NOT GIVENUNK [place] Insurance:SELF PAY [facility] Number: Effective Repository Date:2018-08-21 08/21/2018 WILLIAMS D Primary WILLIAMS D Tali [id number] Insurance:HUMANA BEASLEYDOB: [facility] [place] PP[place]icy [id number] Affairs Medical Center [place] Number: Repository [address]Yrd: (330 [id number] [phone] (HP) Date:8228-24-35JL [address] [address]MD: 08/21/2018 Secondary NOT GIVENUNK [place] Insurance:SELF PAY [facility] Number: Effective Repository Date:2018-08-21 08/21/2018 WILLIAMS D Primary WILLIAMS D Tali [id number] Insurance:HUMANA BEASLEYDOB: [facility] [place] PPOPolicy [id number] Affairs Medical Center [place] Number: Repository [address]Oqs: (330 [id number] [phone] (HP) Date:4849-70-87PR [address] [address]DE: 08/21/2018 Secondary NOT GIVENUNK [place] Insurance:SELF PAY [facility] Number: Effective Repository Date:2018-08-21 08/21/2018 WILLIAMS D Primary WILLIAMS D [place] [id number] Insurance:HUMANA BEASLEYDOB: [facility] [place] PP[place]olicy [id number], [place] Number: Repository [address]Mra: (330 [id number] [phone] (HP) Date:8955-25-40KM [address] [address]CN: 08/21/2018 Secondary NOT GIVENUNK [place] Insurance:SELF PAY [facility] Number: Effective Repository Date:2018-08-21 08/21/2018 WILLIAMS D Primary WILLIAMS D Tali [id number] Insurance:HUMANA BEASLEYDOB: [facility] [place] PPOPolicy [id number] Affairs Medical Center [place] Number: Repository [address]Epz: (330 [id number] [phone] (HP) Date:9977-95-67WC [address] [address]ZX: 08/21/2018 Secondary NOT GIVENUNK [place] Insurance:SELF PAY [facility] Number: Effective Repository Date:2018-08-21 08/21/2018 WILLIAMS D Primary WILLIAMS D Tali [id number] Insurance:HUMANA BEASLEYDOB: Community [place] [facility] [id number], [place] Number: Repository [address]Hof: 330 [id number] [phone] (HP) Date:9973-00-81TH [address] [address]NH: 08/21/2018 Secondary NOT GIVENUNK [place] Insurance:SELF PAY [facility] Number: Effective Repository Date:2018-08-21 08/21/2018 WILLIAMS D Primary WILLIAMS D Tali [id number] Insurance:HUMANA BEASLEYDOB: [facility] [place] [facility] [id number], [place] Number: Repository [address]Ljr: 330 [id number] [phone] (HP) Date:0503-60-58ZN [address] [address]BF: 08/21/2018 Secondary NOT GIVENUNK [place] Insurance:SELF PAY [facility] Number: Effective Repository Date:2018-08-21 08/21/2018 WILLIAMS D Primary WILLIAMS D [place] [id number] Insurance:HUMANA BEASLEYDOB: [facility] [place] [facility] [id number] Number: Repository [address]Fwr: 330 [id number] [phone] (HP) Date:8252-85-88SU [address] [address]OT: 08/21/2018 Secondary NOT GIVENUNK [place] Insurance:SELF PAY [facility] Number: Effective Repository Date:2018-08-21 08/08/2018 WILLIAMS D Primary WILLIAMS D [place] [id number] Insurance:HUMANA BEASLEYDOB: Community [place] [facility] [id number] Affairs Medical Center [place] Number: Repository [address]Pbc: 330 [id number] [phone] (HP) Date:1840-16-41SK [address] [address]WT: 08/08/2018 Secondary NOT GIVENUNK [place] Insurance:SELF PAY [facility] Number: Effective Repository Date:2018-08-08 08/08/2018 WILLIAMS D Primary WILLIAMS D Tali [id number] Insurance:HUMANA BEASLEYDOB: Community [place] PPOPolicy [id number] Affairs Medical Center [place] Number: Repository [address]Wzu: 330 [id number] [phone] (HP) Date:1666-07-73TS [address] [address]PC: 08/08/2018 Secondary NOT GIVENUNK [place] Insurance:SELF PAY [facility] Number: Effective Repository Date:2018-07-18 07/18/2018 WILLIAMS D Primary WILLIAMS D [place] [id number] Insurance:HUMANA BEASLEYDOB: [facility] [id number] Affairs Medical Center [place] Number: Repository [address]Gon: 330 [id number] [phone] (HP) Date:5664-70-91VJ [address] [address]RH: 07/18/2018 Secondary NOT GIVENUNK Tali Insurance:SELF PAY [facility] Number: Effective Repository Date:2018-07-10 07/17/2018 WILLIAMS D Primary WILLIAMS D [place] [id number] Insurance:HUMANA BEASLEYDOB: Community [place] PPOPolicy [id number] Affairs Medical Center [place] Number: Repository [address]Dxx: 330 [id number] [phone] (HP) Date:5021-46-94BE [address] [address]DO: 07/17/2018 Secondary NOT GIVENUNK [place] Insurance:SELF PAY [facility] Number: Effective Repository Date:2018-07-10 07/17/2018 WILLIAMS D Primary WILLIAMS D [place] [id number] Insurance:HUMANA BEASLEYDOB: Community [place] [facility] [id number], [place] Number: Repository [address]Ksh: 330 [id number] [phone] (HP) Date:1811-08-28GL [address] [address]XW: 07/17/2018 Secondary NOT GIVENUNK [place] Insurance:SELF PAY [facility] Number: Effective Repository Date:2018-07-17 07/11/2018 WILLIAMS D Primary WILLIAMS D [place] [id number] Insurance:HUMANA BEASLEYDOB: [facility] [place] [facility] [id number], [place] Number: Repository [address]Tkh: 330 [id number] [phone] (HP) Date:1238-45-26KL [address] [address]TH: 07/11/2018 Secondary NOT GIVENUNK [place] Insurance:SELF PAY [facility] Number: Effective Repository Date:2018-07-11 07/10/2018 WILLIAMS D Primary WILLIAMS D [place] [id number] Insurance:HUMANA BEASLEYDOB: [facility] [place] [facility] [id number] Number: Repository [address]Tex: 330 [id number] [phone] (HP) Date:4616-30-42VV [address] [address]EH: 07/10/2018 Secondary NOT GIVENUNK Tali Insurance:SELF PAY [facility] Number: Effective Repository Date:2018-07-10 07/01/2018 WILLIAMS D Primary WILLIAMS D T[place] [id number] Insurance:HUMANA BEASLEYDOB: Community [place] [facility] [id number] Affairs Medical Center [place] Number: Repository [address]Zxq: 330 [id number] [phone] (HP) Date:0110-62-47KD [address] [address]EX: 07/01/2018 Secondary NOT GIVENUNK Tali Insurance:SELF PAY [facility] Number: Effective Repository Date:2018-07-01 03/04/2018 WILLIAMS D Primary WILLIAMS D [place] [id number] Insurance:HUMANA BEASLEYDOB: Community [place] [facility] [id number] Affairs Medical Center [place] Number: Repository [address]Nmg: 330 [id number] [phone] (HP) Date:9746-86-15PN [address] [address]QW: 03/04/2018 Secondary NOT GIVENUNK Tali Insurance:SELF PAY [facility] Number: Effective Repository Date:2018-01-29 03/02/2018 WILLIAMS D Primary WILLIAMS D T[place] [id number] Insurance:HUMANA BEASLEYDOB: Community [place] [facility] [id number] Affairs Medical Center [place] Number: Repository [address]Qso: (330 [id number] [phone] (HP) Date:9717-36-93GC [address] [address]OF: 03/02/2018 Secondary NOT GIVENUNK [place] Insurance:SELF PAY [facility] Number: Effective Repository Date:2018-03-02 02/25/2018 WILLIAMS D Primary WILLIAMS D [place] [id number] Insurance:HUMANA BEASLEYDOB: Community [place] [facility] [id number] Number: Repository [address]Iwm: (330 [id number] [phone] (HP) Date:4022-74-69TZ [address] [address]XV: 02/25/2018 Secondary NOT GIVENUNK Tali Insurance:SELF PAY [facility] Number: Effective Repository Date:2018-02-25 02/24/2018 WILLIAMS D Primary WILLIAMS D T[place] [id number] Insurance:HUMANA BEASLEYDOB: [facility] [place] PPOP[facility]icy [id number], [place] Number: Repository [address]Knq: 330 [id number] [phone] (HP) Date:6292-65-14FY [address] [address]PQ: 02/24/2018 Secondary NOT GIVENUNK [place] Insurance:SELF PAY [facility] Number: Effective Repository Date:2018-02-20 02/24/2018 WILLIAMS D Primary WILLIAMS D T[place] [id number] Insurance:HUMANA BEASLEYDOB: Community [place] PP[facility]icy [id number], [place] Number: Repository [address]Cxf: 330 [id number] [phone] (HP) Date:3142-01-88NH [address] [place] [address]QR: 02/24/2018 Secondary NOT GIVENUNK [place] Insurance:SELF PAY [facility] Number: Effective Repository Date:2018-02-24 02/19/2018 WILLIAMS D Primary WILLIAMS D [place] [id number] Insurance:HUMANA BEASLEYDOB: Community [place] PP[facility]icy [id number], [place] Number: Repository [address]Cbe: 330 [id number] [phone]) Date:7699-10-64XG [address] [place] [address]JQ: 02/19/2018 Secondary NOT GIVENUNK Tali Insurance:SELF PAY [facility] Number: Effective Repository Date:2018-02-19 02/11/2018 WILLIAMS D Primary WILLIAMS D T[place] [id number] Insurance:HUMANA BEASLEYDOB: Community [place] PPOP[facility]icy [id number], [place] Number: Repository [address]Avi: (330 [id number] [phone]) Date:2529-23-45XX [address] [address]AI: 02/11/2018 Secondary NOT GIVENUNK Tali Insurance:SELF PAY [facility] Number: Effective Repository Date:2018-01-21 01/30/2018 WILLIAMS D Primary WILLIAMS D Tali [id number] Insurance:HUMANA BEASLEYDOB: Community [place] [facility] [id number], [place] Number: Repository [address]Iua: (330 [id number] [phone] (HP) Date:6551-65-96RG [address] [address]IJ: 01/30/2018 Secondary NOT GIVENUNK Tali Insurance:SELF PAY [facility] Number: Effective Repository Date:2018-01-30 01/20/2018 WILLIAMS D Primary WILLIAMS D T[place] [id number] Insurance:HUMANA BEASLEYDOB: Community [place] [facility] [id number] Affairs Medical Center [place] Number: Repository [address]Tvz: (330 [id number] [phone]) Date:8933-26-66UP [address] [address]HL: 01/20/2018 Secondary NOT GIVENUNK [place] Insurance:SELF PAY [facility] Number: Effective Repository Date:2018-01-20 12/30/2017 WILLIAMS D Primary WILLIAMS D T[place] [id number] Insurance:HUMANA BEASLEYDOB: Community [place] [facility] [id number], [place] Number: Repository [address]Sew: (330 [id number] [phone]) Date:5720-87-56SX [address] [address]OP: 12/30/2017 Secondary NOT GIVENUNK Tali Insurance:SELF PAY [facility] Number: Effective Repository Date:2017-12-30 12/26/2017 WILLIAMS D Primary WILLIAMS D Tali [id number] Insurance:HUMANA BEASLEYDOB: [place] [facility] [id number], [place] Number: Repository [address]Xrk: 330 [id number] [phone] (HP) Date:6477-30-77GZ [address] [address]YW: 12/26/2017 Secondary NOT GIVENUNK [place] Insurance:SELF PAY [facility] Number: Effective Repository Date:2017-12-26 12/25/2017 WILLIAMS D Primary WILLIAMS D T[place] [id number] Insurance:HUMANA BE[facility]DOB[facility] [id number] Affairs Medical Center [place] Number: Repository [address]Wpm: 330 [id number] [phone] (HP) Date:1278-56-12JK [address] [address]AU: 12/25/2017 Secondary NOT GIVENUNK [place] Insurance:SELF PAY [facility] Number: Effective Repository Date:2017-12-25 12/22/2017 WILLIAMS D Primary WILLIAMS D T[place] [id number] Insurance:HUMANA BEASLEYDOB[facility] [id number], [place] Number: Repository [address]Jgj: 330 [id number] [phone] (HP) Date:2778-05-34CK [address] [address]YY: 12/22/2017 Secondary NOT GIVENUNK [place] Insurance:SELF PAY [facility] Number: Effective Repository Date:2017-12-22 12/19/2017 WILLIAMS D Primary WILLIAMS D T[place] [id number] Insurance:HUMANA BEASLEYDOB: [facility] [id number] Affairs Medical Center [place] Number: Repository [address]Dzb: (330 [id number] [phone] (HP) Date:4945-27-88AC [address] [address]GT: 12/19/2017 Secondary NOT GIVENUNK Tali Insurance:SELF PAY [facility] Number: Effective Repository Date:2017-12-09 12/17/2017 WILLIAMS D Primary WILLIAMS D [place] [id number] Insurance:HUMANA BEASLEYDOB: Community [place] [facility] [id number] County Memorial Hospital [place] Number: Repository [address]Yak: (330 [id number] [phone]) Date:1737-54-84NX [address]4601WP: 12/17/2017 Secondary NOT GIVENUNK [place] Insurance:SELF PAY [facility] Number: Effective Repository Date:2017-12-17 12/13/2017 WILLIAMS D Primary WILLIAMS D T[place] [id number] Insurance:HUMANA BEASLEYDOB: Community [place] [facility] [id number] County Memorial Hospital [place] Number: Repository [address]Rgk: (330 [id number] [phone]) Date:0179-62-48UG [address] [address]NT: 12/13/2017 Secondary NOT GIVENUNK Tali Insurance:SELF PAY [facility] Number: Effective Repository Date:2017-12-13 12/11/2017 WILLIAMS D Primary WILLIAMS D [place] [id number] Insurance:HUMANA BEASLEYDOB: Community [place] [facility] [id number] County Memorial Hospital [place] Number: Repository [address]Igk: (330 [id number] [phone] (HP) Date:5482-21-79CP [address] [address]QT: 12/11/2017 Secondary NOT GIVENUNK Tali Insurance:SELF PAY [facility] Number: Effective Repository Date:2017-12-11 12/10/2017 WILLIAMS D Primary WILLIAMS D [place] [id number] Insurance:HUMANA BEASLEYDOB: Community [place] [facility] [id number] Number: Repository [address]Jvx: 330 [id number] [phone] (HP) Date:6490-31-78RH [address]4601WP: 12/10/2017 Secondary NOT GIVENUNK [place] Insurance:SELF PAY [facility] Number: Effective Repository Date:2017-12-10 12/10/2017 WILLIAMS D Primary WILLIAMS D [place] [id number] Insurance:HUMANA BEASLEYDOB: [facility] [place] [facility] [id number], [place] Number: Repository [address]Llc: 330 [id number] [phone] (HP) Date:3806-47-40CS [address]4601WP: 12/10/2017 Secondary NOT GIVENUNK [place] Insurance:SELF PAY [facility] Number: Effective Repository Date:2017-12-10 12/10/2017 WILLIAMS D Primary WILLIAMS D [place] [id number] Insurance:HUMANA BEASLEYDOB: [facility] [place] PPOPolicy [id number] Repository [address]Qly: (330 [id number] [phone]) Date:5917-49-92EM [address] [address]KI: 12/10/2017 Secondary NOT GIVENUNK [place] Insurance:SELF PAY [facility] Number: Effective Repository Date:2017-12-10 12/10/2017 WILLIAMS D Primary WILLIAMS D [place] [id number] Insurance:HUMANA BEASLEYDOB: [facility] [place] [facility] [id number] County Memorial Hospital [place] Number: Repository [address]Gmg: (330 [id number] [phone] (HP) Date:7674-24-41GN [address] [place] [address]SX: 12/10/2017 Secondary NOT GIVENUNK T[place] Insurance:SELF PAY [facility] Number: Effective Repository Date:2017-12-10 12/10/2017 WILLIAMS D Primary WILLIAMS D [place] [id number] Insurance:HUMANA BEASLEYDOB: Community [place] [facility] [id number] Number: Repository [address]Vfq: 330 [id number] [phone] (HP) Date:1628-11-51UY [address] [address]GQ: 12/10/2017 Secondary NOT GIVENUNK [place]ali Insurance:SELF PAY [facility] Number: Effective Repository Date:2017-12-10 12/02/2017 WILLIAMS D Primary WILLIAMS D [place] [id number] Insurance:HUMANA BEASLEYDOB: Community [place] [facility] [id number], [place] Number: Repository [address]Hug: (330 [id number] [phone] (HP) Date:0512-69-74TK [address] [address]WW: 12/02/2017 Secondary NOT GIVENUNK [place] Insurance:SELF PAY [facility] Number: Effective Repository Date:2017-12-02 11/28/2017 WILLIAMS D Primary WILLIAMS D [place] [id number] Insurance:HUMANA BEASLEYDOB: Community [place] [facility] [id number], [place] Number: Repository [address]Bqm: (330 [id number] [phone] (HP) Date:1354-97-18NY [address] [address]DF: 11/28/2017 Secondary NOT GIVENUNK T[place] Insurance:SELF PAY [facility] Number: Effective Repository Date:2017-11-28 11/28/2017 Williams D Primary Williams D [place] [id number] Insurance:HUMANA BeasleyDOB: [facility] [place] PPOPolicy [id number] Number: Repository [address]Uon: 330 [id number] [phone] (HP) Date:1832-60-98FO [place] 2475712-46[address]WP: 11/28/2017 Secondary NOT GIVENUNK [place] Insurance:SELF PAY [facility] Number: Effective Repository Date:2017-11-28 11/28/2017 Williams D Primary Williams D [place] [id number] Insurance:HUMANA BeasleyDOB: Community [place] PPOPolicy [id number] County Memorial Hospital [place] Number: Repository [address]Jtl: 330 [id number] [phone] (HP) Date:1143-43-55DY [address] [place], [place] [address]WP: 11/28/2017 Secondary NOT GIVENUNK T[place] Insurance:SELF PAY [facility] Number: Effective Repository Date:2017-11-28 11/28/2017 Williams D Primary Williams D [place] [id number] Insurance:HUMANA BeasleyDOB: Community [place] PPOPolicy [id number] County Memorial Hospital [place] Number: Repository [address]Dbm: 330 [id number] [phone] (HP) Date:5971-11-35LX [address] [address]BM: 11/28/2017 Secondary NOT GIVENUNK [place] Insurance:SELF PAY [facility] Number: Effective Repository Date:2017-11-28 11/28/2017 Williams D Primary Williams D [place] [id number] Insurance:HUMANA BeasleyDOB: Community [place] PPOPolicy [id number] County Memorial Hospital [place] Number: Repository [address]Nlq: 330 [id number] [phone] (HP) Date:0467-41-03IG [address] [address]KI: 11/28/2017 Secondary NOT GIVENUNK [place] Insurance:SELF PAY [facility] Number: Effective Repository Date:2017-11-28 11/28/2017 Williams D Primary Williams D [place] [id number] Insurance:HUMANA BeasleyDOB: Community [place] [facility] [id number], [place] Number: Repository [address]Dex: (330 [id number] [phone]) Date:3617-11-48FQ [address] [address]FM: 11/28/2017 Secondary NOT GIVENUNK [place] Insurance:SELF PAY [facility] Number: Effective Repository Date:2017-11-28 11/28/2017 Williams D Primary Williams D T[place] [id number] Insurance:HUMANA BeasleyDOB: Community [place] [facility] 1619-04-35ZIG[place] Number: Repository [address]Djq: (330 [id number] [phone]) Date:2141-15-54YX [address] [address]EG: 11/28/2017 Secondary NOT GIVENUNK [place] Insurance:SELF PAY [facility] Number: Effective Repository Date:2017-11-28 11/28/2017 Williams D Primary Williams D [place] [id number] Insurance:HUMANA BeasleyDOB: Community [place] [facility] 1819-54-43XZENephi, [place] Number: Repository [address]Cue: (330 [id number] [phone] (HP) Date:9475-45-69OL [address] [address]LO: 11/28/2017 Secondary NOT GIVENUNK [place] Insurance:SELF PAY [facility] Number: Effective Repository Date:2017-11-28 11/28/2017 Williams D Primary Williams D [place] [id number] Insurance:HUMANA BeasleyDOB: [facility] [place] PPOPolicy [id number] County Memorial Hospital [place] Number: Repository [address]Jrr: 330 [id number] [phone] (HP) Date:2563-45-99ZL [address] [address]PU: 11/28/2017 Secondary NOT GIVENUNK [place] Insurance:SELF PAY [facility] Number: Effective Repository Date:2017-11-28 11/28/2017 Williams D Primary Williams D [place] [id number] Insurance:HUMANA Be[facility] [id number] [place] Number: Repository [address]Vem: 330 [id number] [phone] Date:0771-34-68SG [address] [address]WZ: 11/28/2017 Secondary NOT GIVENUNK [place] Insurance:SELF PAY [facility] Number: Effective Repository Date:2017-11-28 11/28/2017 Williams D Primary Williams D [place] [id number] Insurance:HUMANA BeasleyDOB: [facility] [id number] County Memorial Hospital [place] Number: Repository [address]Mug: 330 [id number] [phone] (HP) Date:0136-18-00ZO [address] [address]NT: 11/28/2017 Secondary NOT GIVENUNK [place] Insurance:SELF PAY [facility] Number: Effective Repository Date:2017-11-28 11/28/2017 Williams D Primary Williams D [place] [id number] Insurance:HUMANA BeasleyDOB: [facility] PP[facility]icy [id number] [place] Number: Repository [address]Nds: 330 [id number] [phone] (HP) Date:4567-56-96UX [address] [place] [address]US: 11/28/2017 Secondary NOT GIVENUNK [place] Insurance:SELF PAY [facility] Number: Effective Repository Date:2017-11-28 11/28/2017 Williams D Primary Williams D [place] [id number] Insurance:HUMANA BeasleyDOB: Community [place] [facility] [id number] County Memorial Hospital [place] Number: Repository [address]Lrm: 330 [id number] [phone]) Date:2875-42-94IF [address] [address]FB: 11/28/2017 Secondary NOT GIVENUNK [place] Insurance:SELF PAY [facility] Number: Effective Repository Date:2017-11-28 11/28/2017 Williams D Primary Williams D [place] [id number] Insurance:HUMANA BeasleyDOB: Community [place] [facility] [id number] County Memorial Hospital [place] Number: Repository [address]Gqe: 330 [id number] [phone] (HP) Date:5709-24-89WA [address] [address]OA: 11/28/2017 Secondary NOT GIVENUNK [place] Insurance:SELF PAY [facility] Number: Effective Repository Date:2017-11-28 11/28/2017 Williams D Primary Williams D [place] [id number] Insurance:HUMANA BeasleyDOB: Community [place] [facility] [id number] County Memorial Hospital [place] Number: Repository [address]Fnc: 330 [id number] [phone] (HP) Date:1737-77-50QD [address] [address]OS: 11/28/2017 Secondary NOT GIVENUNK [place] Insurance:SELF PAY [facility] Number: Effective Repository Date:2017-11-28 11/28/2017 Williams D Primary Williams D [place] [id number] Insurance:HUMANA BeasleyDOB: Community [place] [facility] 0685-16-82TBJNe[place], [place] Number: Repository [address]Ols: 330 [id number] [phone] (HP) Date:8080-82-09JE [address] [address]QX: 11/28/2017 Secondary NOT GIVENUNK [place] Insurance:SELF PAY [facility] Number: Effective Repository Date:2017-11-28 11/28/2017 Williams D Primary Williams D T[place] [id number] Insurance:HUMANA BeasleyDOB: [facility] [place] PPOPolicy [id number] County Memorial Hospital [place] Number: Repository [address]Giu: 330 [id number] [phone]) Date:6172-87-44UA [place] 2475712-46[address]WP: 11/28/2017 Secondary NOT GIVENUNK [place] Insurance:SELF PAY [facility] Number: Effective Repository Date:2017-11-28 11/28/2017 Williams D Primary Williams D [place] [id number] Insurance:HUMANA BeasleyDOB: [facility] [place] [facility] [id number] Number: Repository [address]Shj: (330 [id number] [phone]) Date:4817-19-92OT [address] [address]SB: 11/28/2017 Secondary NOT GIVENUNK [place] Insurance:SELF PAY [facility] Number: Effective Repository Date:2017-11-28 11/20/2017 WILLIAMS D Primary WILLIAMS D [place] [id number] Insurance:HUMANA BEASLEYDOB: Community [place] [facility] [id number] [place] Number: Repository [address]Yao: (330 [id number] [phone] (HP) Date:7519-48-74FO [address] [address]YV: 11/20/2017 Secondary NOT GIVENUNK [place] Insurance:SELF PAY [facility] Number: Effective Repository Date:2017-11-20 11/19/2017 Williams D Primary Williams D [place] [id number] Insurance:HUMANA BeasleyDOB: Community [place] [facility] [id number], [place] Number: [place]ository [address]Qtf: 330 [id number] [phone] (HP) Date:4120-03-62AI [address] [address]QB: 11/19/2017 Secondary NOT GIVENUNK [place] Insurance:SELF PAY [facility] Number: Effective Repository Date:2017-11-19 11/19/2017 Williams D Primary Williams D [place] [id number] Insurance:HUMANA BeasleyDOB: Community [place] [facility] [id number] County Memorial Hospital [place] Number: Repository [address]Emp: 330 [id number] [phone] (HP) Date:8182-49-96RE [address] [address]TN: 11/19/2017 Secondary NOT GIVENUNK [place] Insurance:SELF PAY [facility] Number: Effective Repository Date:2017-11-19 11/19/2017 Williams D Primary Williams D [place] [id number] Insurance:HUMANA BeasleyDOB: Community [place] [facility] [id number] County Memorial Hospital [place] Number: Repository [address]Pvq: 330 [id number] [phone] (HP) Date:4344-25-15UP [address] [address]LJ: 11/19/2017 Secondary NOT GIVENUNK [place] Insurance:SELF PAY [facility] Number: Effective Repository Date:2017-11-19 11/19/2017 Williams D Primary Williams D [place] [id number] Insurance:HUMANA BeasleyDOB: [place] [facility] [id number] County Memorial Hospital [place] Number: Repository [address]Bqx: (330 [id number] [phone]) Date:8584-76-00ML [address] [address]GF: 11/19/2017 Secondary NOT GIVENUNK [place] Insurance:SELF PAY [facility] Number: Effective Repository Date:2017-11-19 11/19/2017 Williams D Primary Williams D [place] [id number] Insurance:HUMANA BeasleyDOB: [facility] [place] PPOPolicy [id number] County Memorial Hospital [place] Number: Repository [address]Dbx: 330 [id number] [phone] (HP) Date:4513-73-08UD [address]4601WP: 11/19/2017 Secondary NOT GIVENUNK [place] Insurance:SELF PAY [facility] Number: Effective Repository Date:2017-11-19 11/19/2017 Williams D Primary Williams D [place] [id number] Insurance:HUMANA BeasleyDOB: [facility] [place] [facility] [id number]: Repository [address]Hjy: 330 [id number] [phone] (HP) Date:0387-89-55RT [address] [address]LI: 11/19/2017 Secondary NOT GIVENUNK [place] Insurance:SELF PAY [facility] Number: Effective Repository Date:2017-11-19 11/19/2017 WILLIAMS D Primary WILLIAMS D [place] [id number] Insurance:HUMANA BEASLEYDOB: [place] [facility] [id number] County Memorial Hospital [place] Number: Repository [address]Xpl: (330 [id number] [phone] (HP) Date:9025-39-49[address] [address]GZWSMVXCC, [place] [address]YF: 11/19/2017 Secondary NOT GIVENUNK [place] Insurance:SELF PAY [facility] Number: Effective Repository Date:2017-11-19
== END 2018-08-29 17:13 | disposition home or self-care (01) | DRG 291 ==
LOC: ED 16:45 → PCU 21:01
PROVIDERS: Internal Medicine Nephrology; Physician Assistant; Surgery; Admitting Provider Student in an Organized Health Care Education/Training Program; Emergency Provider Emergency Medicine; Family Provider Internal Medicine; PCP Internal Medicine; Visit Provider Internal Medicine
PROC: 0JH63XZ Insertion of Tunneled Vascular Access Device into Chest Subcutaneous Tissue and Fascia, Percutaneous Approach (ICD-10-PCS; principal; 2018-08-27 16:20)
DX: I13.2 Hypertensive heart and chronic kidney disease with heart failure and with stage 5 chronic kidney disease, or end stage renal disease (principal); N18.6 End stage renal disease; R04.2 Hemoptysis; I50.32 Chronic diastolic (congestive) heart failure; E11.22 Type 2 diabetes mellitus with diabetic chronic kidney disease; E11.319 Type 2 diabetes mellitus with unspecified diabetic retinopathy without macular edema; E11.40 Type 2 diabetes mellitus with diabetic neuropathy, unspecified; E66.9 Obesity, unspecified; K21.9 Gastro-esophageal reflux disease without esophagitis; F17.220 Nicotine dependence, chewing tobacco, uncomplicated; F32.9 Major depressive disorder, single episode, unspecified; F41.9 Anxiety disorder, unspecified; E78.5 Hyperlipidemia, unspecified; D63.1 Anemia in chronic kidney disease; E83.51 Hypocalcemia; H54.62 Unqualified visual loss, left eye, normal vision right eye; E11.65 Type 2 diabetes mellitus with hyperglycemia; E87.5 Hyperkalemia; I25.2 Old myocardial infarction; Z79.4 Long term (current) use of insulin; Z68.35 Body mass index [BMI] 35.0-35.9, adult; Z79.899 Other long term (current) drug therapy
CPT/HCPCS: 36415; 71045; 71046; 76000; 80048; 80069; 82962; 83540; 83550; 83880; 85025; 85610; 85730; 86706; 86803; 87340; 90937; 99282; J0885; J1756; J7030; A4216; C1750; G0257; J1940

== ENCOUNTER → 2018-11-25 13:23 | Outpatient (CLI) | payer MEDICARE, SELFPAY ==
[2018-11-25 12:58] VITALS: BMI 32.7
[2018-11-25 14:02] LABS: Absolute Lymphocyte Count 1.79 X10^3/ul (0.83-4.51); Absolute Neutrophil Count 5.3 X10^3/uL (2.0-7.7); Basophil# 0.03 X10^3/uL; Basophil% 0.4 % (0-1); Eosinophil# 0.05 X10^3/uL; Eosinophils% 0.6 % (0-5); Hematocrit 35.3 % (40-54); Hemoglobin 11.9 g/dl (13.0-16.5); Lymphocyte # 1.79 X10^3/ul (4.0); Lymphocyte % 23.2 % (19-41); Mean Corp Hgb Conc 33.7 g/gl (32-36); Mean Corpuscular Hgb 30.3 pg (27.0-32.0); Mean Corpuscular Volume 89.8 fL (80-94); Mean Platelet Vol. 9.4 fl (6.2-12.0); Monocyte% 6.5 % (0-10); Neutrophil # 5.34 X10^3/uL (2.7-7.7); POSITIVE COUNT NO; POSITIVE DIFFERENTIAL NO; POSITIVE MORPHOLOGY NO; Platelet Count 279 K/mm3 (150-450); RBC Distribution Width CV 12.4 % (11.6-14.6); RBC Distribution Width SD 39.1 fl (35.1-43.9); Red Blood Count 3.93 M/mm3 (4.6-6.2); White Blood Count 7.7 K/mm3 (4.4-11.0)
[2018-11-25 14:34] LABS: Anion Gap 8 (5-15); BUN 33 mg/dL (7-18); BUN/Creat Ratio 5.9 RATIO (10-20); Calcium,Total 8.4 mg/dL (8.5-10.1); Chloride 100 mmol/L (98-107); Creatinine, Serum 5.56 mg/dL (0.70-1.30); EST Glomerular Filtration Rate 12 mL/min (>60); Est Glom Filt Rate - Afr Amer 14 mL/min (>60); Glucose 314 mg/dL (74-106); Sodium Level 139 mmol/L (136-145)
== END ==
LOC: PAVLAB 13:26
PROVIDERS: Family Provider Internal Medicine; PCP Internal Medicine; Referring Provider Surgery; Visit Provider Surgery
DX: Z01.818 Encounter for other preprocedural examination (principal); N19 Unspecified kidney failure
CPT/HCPCS: 36415; 80048; 85025

== ENCOUNTER 2018-12-11 09:37 | Day surgery (SDC) | payer MEDICARE, SELFPAY ==
[2018-11-25 12:58] VITALS: BMI 32.7
[2018-11-25 15:57] VITALS: BMI 35.9
[2018-12-10 07:37] VITALS: BMI 32.6
--- NOTE | 2018-12-11 12:46 | PCM.OPRPT ---
Problem List (1) Problem with dialysis access Status: Acute Qualifiers: Encounter type: initial encounter Qualified Code(s): T82.898A - Other specified complication of vascular prosthetic devices, implants and grafts, initial encounter Report of Operation Date of Procedure: 12/11/18 Pre-Operative Diagnosis: Problem with dialysis access, clotting Post-Operative Diagnosis: Clinically significant arterial anastomotic stenosis, large mid fistula side branches x2 Surgery/Procedure Performed:: Right upper extremity fistulogram with 4 x 2 Powerflex arterial anastomotic angioplasty Description of Surgical Findings:: Timeout and informed consent was obtained. 48-year-old gentleman was taken to the special procedure lab placed on the table. His right upper extremity was sterilely prepped and draped. He received 50 mcg of fentanyl 1 mg of Versed as intravenous sedation. Under ultrasound guidance antegrade with flow close to the wrist 2% lidocaine was instilled. Micropuncture needle inserted. Micropuncture wire inserted. Micropuncture sheath inserted. Then using Isovue contrast fistulogram was obtained of the right upper extremity. This included retrograde injection. This demonstrated excellent fistula standing in the forearm upper arm and central venous outflow. There were 2 dominant side branches in the mid forearm. There appeared to be stenosis of the very proximal portion of the fistula. So again using ultrasound I instilled local and gained retrograde access to the fistula in the mid forearm. Micropuncture wire was inserted and a 6 [place] short sheath was inserted. Using 035 angled Glidewire and a 4 [place] glide catheter was able to get access to the radial artery proximal of the fistula and obtained a further diagnostic study. This demonstrated 70% stenosis at the arterial anastomosis. I placed a 4 x 20 mm Powerflex balloon performed balloon angioplasty up to 18 amanda of pressure. Completion views now demonstrated dramatic improvement. Also clinically there was a much improved thrill. Sheaths were removed U sutures of 4-0 nylon was placed. Blood loss was minimal he tolerated it well there is no apparent complication The right upper extremity fistula gram demonstrates a radial to cephalic arteriovenous hemodialysis fistula with excellent outflow throughout the forearm upper arm and chest. There is evidence of 70% stenosis at the arterial anastomosis which resolved with angioplasty. There is evidence of 2 large side branches in the mid fistula. I will recommend office follow-up for planned sidebranch ligation. Satish Phan M.D., F.A.C.S. Type of Anesthesia:: IV Sedation, Local
== END 2018-12-11 13:56 | disposition home or self-care (01) ==
LOC: CLSP 09:40
PROVIDERS: Family Provider Internal Medicine; PCP Internal Medicine; Referring Provider Surgery; Visit Provider Surgery
DX: T82.858A Stenosis of other vascular prosthetic devices, implants and grafts, initial encounter (principal); I13.0 Hypertensive heart and chronic kidney disease with heart failure and stage 1 through stage 4 chronic kidney disease, or unspecified chronic kidney disease; E11.22 Type 2 diabetes mellitus with diabetic chronic kidney disease; E11.65 Type 2 diabetes mellitus with hyperglycemia; N18.4 Chronic kidney disease, stage 4 (severe); I50.33 Acute on chronic diastolic (congestive) heart failure; E11.40 Type 2 diabetes mellitus with diabetic neuropathy, unspecified; E11.319 Type 2 diabetes mellitus with unspecified diabetic retinopathy without macular edema; D63.1 Anemia in chronic kidney disease; Z91.19 Patient's noncompliance with other medical treatment and regimen; E78.5 Hyperlipidemia, unspecified; K21.9 Gastro-esophageal reflux disease without esophagitis; F32.9 Major depressive disorder, single episode, unspecified; F41.9 Anxiety disorder, unspecified; E66.9 Obesity, unspecified; F17.220 Nicotine dependence, chewing tobacco, uncomplicated; Z99.2 Dependence on renal dialysis; Z79.82 Long term (current) use of aspirin; Z79.4 Long term (current) use of insulin; Z79.899 Other long term (current) drug therapy; I25.2 Old myocardial infarction
CPT/HCPCS: 36902; 76937; 99152; 99153; Q9967; C1725; C1769

== ENCOUNTER → 2019-05-27 13:01 | Outpatient (CLI) | payer MEDICARE, SELFPAY ==
[2019-03-18 15:07] VITALS: BMI 31.2
[2019-05-27 13:24] LABS: Potassium 5.7 mmol/L (3.5-5.1)
== END ==
PROVIDERS: Family Provider Internal Medicine; PCP Internal Medicine; Referring Provider Internal Medicine Nephrology; Visit Provider Internal Medicine Nephrology
DX: E87.5 Hyperkalemia (principal)
CPT/HCPCS: 84132

== ENCOUNTER 2019-07-13 20:32 | Inpatient (IN) | payer MEDICARE, SELFPAY ==
[2019-03-18 15:07] VITALS: BMI 31.2
[2019-07-13 20:33] VITALS: BP 169/77; PULSE 85; RESP 18; TEMP 37.7; O2SAT 94; BMI 31.9
[2019-07-13 21:06] VITALS: O2SAT 96
[2019-07-13] MEDS: 0.9% Normal Saline 1,000 ML 1000 ML IV (22:06)
[2019-07-13 22:09] LABS: Absolute Lymphocyte Count 0.68 X10^3/uL (0.83-4.51); Absolute Neutrophil Count 7.6 X10^3/uL (2.0-7.7); Basophil# 0.05 X10^3/uL; Basophil% 0.5 % (0-1); Eosinophils% 1.1 % (0-5); Hematocrit 32.1 % (40-54); Hemoglobin 10.8 g/dL (13.0-16.5); Lymphocyte # 0.68 X10^3/ul (4.0); Lymphocyte % 7.4 % (19-41); Mean Corp Hgb Conc 33.6 g/dL (32-36); Mean Corpuscular Hgb 31.5 pg (27.0-32.0); Mean Corpuscular Volume 93.6 fL (80-94); Mean Platelet Vol. 9.8 fl (6.2-12.0); Monocyte# 0.83 X10^3/uL; NRBC Flagged by Analyzer 0 % (0-5); Neutrophil # 7.57 X10^3/uL (2.7-7.7); Neutrophil % 81.8 % (47-70); Platelet Count 201 K/mm3 (150-450); RBC Distribution Width CV 12.9 % (11.6-14.6); RBC Distribution Width SD 43.9 fl (35.1-43.9); Red Blood Count 3.43 M/mm3 (4.6-6.2); White Blood Count 9.3 K/mm3 (4.4-11.0)
--- NOTE | 2019-07-13 22:10 | RAD_ITS ---
HISTORY: COUGH EXAM: XR Chest 2 Views: COMPARISON: August 27, 2018 FINDINGS: # of images incl. paperwork: 2 Dialysis catheter from the right IJ has been removed Diffuse right lung and left upper lobe airspace disease may be present. These findings could be technical and due to degree of penetration. Heart is enlarged. Bones are normal. Pulmonary vascularity is indistinct. No effusions. RAD/Chest PA and Lateral IMPRESSION: Possible diffuse airspace disease in a patient with cardiomegaly suggests pulmonary edema and probable CHF. Additionally this could be nephrogenic pulmonary edema.. at 2233 Reported and signed by: Torres Kelly MD Electronically Signed: Torres Kelly MD at 22:32 EST Tel , Service support ,
[2019-07-13 22:26] LABS: Anion Gap 14 (5-15); BUN 71 mg/dL (7-18); BUN/Creat Ratio 6.6 RATIO (10-20); Calcium,Total 7.8 mg/dL (8.5-10.1); Chloride 100 mmol/L (98-107); EST Glomerular Filtration Rate 5 mL/min (>60); Est Glom Filt Rate - Afr Amer 7 mL/min (>60); Estimated Creatinine Clearance 7.99 ml/min; Glucose 114 mg/dL (74-106); Potassium 4.4 mmol/L (3.5-5.1); Sodium Level 137 mmol/L (136-145)
--- NOTE | 2019-07-13 22:26 | ED.RN ---
lab called with critical lab results. creatine 10.[address] Saldana made aware no new orders at this time
[2019-07-13] MEDS: guaiFENesin 600 MG Tablet PO (22:43)
[2019-07-13 22:44] VITALS: PULSE 95; RESP 15; TEMP 38.3; O2SAT 90
[2019-07-13] MEDS: Acetaminophen 500 MG Tablet 1000 MG PO (22:50)
--- NOTE | 2019-07-13 23:08 | ED.VISSUMM ---
- ER Visit Summary Date of Service: 07/13/19 Chief Complaint: Cough and fever History of Present Illness: The patient is a 48 M who presents with cough and fever that began yesterday. Patient states his fever was up to 100.7. Patient admits to a cough but denies any sputum production. Patient admits to some rhinorrhea and sore throat. Patient states he also has episodes where he feels like his heart is racing. Patient has been having some nausea and vomiting. Patient also complains of some pain in his back from coughing. Patient states nothing makes his cough better or worse. Patient has a history of chronic kidney disease and takes dialysis Saturday. Physical Examination: Vital signs are stable. Patient is afebrile here. Patient is in no acute distress. Oral mucosa is pink and moist. Oropharynx is clear. Tympanic membranes are clear. Neck is supple. Trachea is midline. There is no JVD. Heart was regular rate and rhythm. Lungs show diffuse rhonchi. There is good respiratory effort noted. Abdomen is soft and nontender. Cranial nerves II through XII are intact. There are no focal motor or sensory deficits noted. Test Results: CBC was within normal limits. Influenza and rapid strep test were obtained and were negative. Basic metabolic profile showed a creatinine of 10.7 and a BUN of 71. PA and lateral chest x-ray shows diffuse airspace disease and cardiomegaly. This could be congestive heart failure or nephrogenic pulmonary edema. Emergency Department Course and Treatment: Patient was given IV fluids initially. Patient was given a dose of Mucinex and Tylenol here in the emergency department. Patient states on reevaluation that he did not go to his dialysis today. Patient states his last dialysis was 4 days ago. Case was discussed with the hospitalist. He will admit the patient to his service. Disposition: Admit to hospital Impression: 1. Dyspnea 2. Pulmonary edema This note was generated with [employer] dictation software. It may contain incorrect words, spelling, and punctuation that were not noted in review of the chart prior to signing ED Disposition - Plan for ED Patient: Disposition: Acute Care [facility] Diagnosis: Dyspnea, Pulmonary edema Referrals: Zaida Mcneil MD [Primary Care Provider] -
[2019-07-13 23:16] VITALS: O2SAT 95
--- NOTE | 2019-07-13 23:16 | NURSING ---
HAD TO PUT THE PT ON OXYGEN DUE TO LOW PULSE OXYGENATION. PT DROPPED DOWN TO 83% ON ROOM AIR. PUT THE PT ON 3 LITERS OF OXYGEN AND HIS SATURATION INCREASED TO THE 90'S
[2019-07-13 23:18] VITALS: BP 152/87; PULSE 93; RESP 19; O2SAT 97
--- NOTE | 2019-07-13 23:24 | HP.PCM_ITS ---
Problem List (1) Dyspnea Status: Acute (2) Pulmonary edema Status: Acute (3) Atherosclerotic heart disease of [place] coronary artery without angina pectoris Status: Chronic Qualifiers: Comment: Per cath 06/26/11- LAD 10% ostial stenosis, 10% proximal, 20-30% distal stenosis, Ramus 10-20% mid stenosis, OM1 20-30% mid stenosis (4) Chronic renal failure, stage 5 Status: Chronic (5) Obesity (BMI 30-39.9) Status: Chronic (6) Noncompliance Status: Chronic (7) Diabetic neuropathy Status: Chronic (8) HLD (hyperlipidemia) Status: Chronic Qualifiers: (9) Diabetes mellitus type II, uncontrolled Status: Chronic Comment: Dx : 1993 Discussed with patient need to check BG in pairs, learn carb counting and then we can determine I/C ratio for him at last visit. is doing well with his diet. He stopped his basalglar. He is willing to start again at lower dose and titrate back up. He will start at 10 units and increase by 2-3 units every 3 days if he is waking with higher BG than he went to bed with. I have also decrease his correction to 1-50 so that he is not going low after correction. I have given he an alternative correction scale to use if he needs less correction when he begins with higer dose of basaglar and finds his current correction may be too strong. On statin On asa (10) Anxiety and depression Status: Chronic (11) GERD (gastroesophageal reflux disease) Status: Chronic Qualifiers: (12) Chewing tobacco nicotine dependence Status: Chronic Qualifiers: History of Present Illness Date of Admission: 07/13/19 Chief Complaint: Shortness of breath The patient is a 48 year old male patient with past medical history of diabetes, chronic kidney disease with dialysis on Saturday, presents to the emergency room with acute shortness of breath following a day where he was unable to attend dialysis. Apparently the patient called the facility and had a low-grade fever therefore was not allowed to come for his routine dialysis. Chest x-ray reveals mild cardiomegaly with pulmonary edema pattern consistent with fluid overload. The patient currently denies chest pain and is not nauseated. He will be admitted and nephrology consulted to initiate dialysis in the morning. Past Medical History Past Medical History (Chronic Problems): Chronic Problems (Last Updated 03/18/19 @ 15:11 by Mary Johnson) Atherosclerotic heart disease of [place] coronary artery without angina pectoris (Chronic) Per cath 06/26/11- LAD 10% ostial stenosis, 10% proximal, 20-30% distal stenosis, Ramus 10-20% mid stenosis, OM1 20-30% mid stenosis Essential hypertension (Chronic) Chronic renal failure, stage 5 (Chronic) Ectopic cardiac beats (Chronic) Anemia of chronic renal failure, stage 4 (severe) (Chronic) Chronic renal failure, stage 4 (severe) (Chronic) Is currently following with nephrology. Also following with urology. Is trying to follow his low protein diet and feels he is doing well with it. Obesity (BMI 30-39.9) (Chronic) Noncompliance (Chronic) Diabetic neuropathy (Chronic) Diabetic nephropathy (Chronic) Diabetic retinopathy (Chronic) HLD (hyperlipidemia) (Chronic) Blind left eye (Chronic) Diabetes mellitus type II, uncontrolled (Chronic) Dx : 1990 Discussed with patient need to check BG in pairs, learn carb counting and then we can determine I/C ratio for him at last visit. is doing well with his diet. He stopped his basalglar. He is willing to start again at lower dose and titrate back up. He will start at 10 units and increase by 2-3 units every 3 days if he is waking with higher BG than he went to bed with. I have also decrease his correction to 1-50 so that he is not going low after correction. I have given he an alternative correction scale to use if he needs less correction when he begins with higer dose of basaglar and finds his current correction may be too strong. On statin On asa Anxiety and depression (Chronic) GERD (gastroesophageal reflux disease) (Chronic) Chewing tobacco nicotine dependence (Chronic) History of acute myocardial infarction (Chronic) Medical History: Medical History (Last Updated 03/18/19 @ 15:11 by Mary Johnson) Atherosclerotic heart disease of [place] coronary artery without angina pectoris (Chronic) I25.10 Per cath 06/26/11- LAD 10% ostial stenosis, 10% proximal, 20-30% distal stenosis, Ramus 10-20% mid stenosis, OM1 20-30% mid stenosis Essential hypertension (Chronic) I10 Problem with dialysis access (Acute) T82.898A Anasarca associated with disorder of kidney (Acute) N04.9 Anemia of chronic renal failure, stage 4 (severe) (Chronic) N18.4, D63.1 Autonomic neuropathy (Suspected) G90.9 Chronic renal failure, stage 4 (severe) (Chronic) N18.4 Is currently following with nephrology. Also following with urology. Is trying to follow his low protein diet and feels he is doing well with it. Retention, urine (Acute) R33.9 Acute on chronic diastolic CHF (congestive heart failure) (Acute) I50.33 Acute hypoxemic respiratory failure (Ruled-out) J96.01 Hypoglycemia (Acute) E16.2 resolved in ED Acute respiratory failure with hypoxia (Ruled-out) J96.01 Obesity (BMI 30-39.9) (Chronic) E66.9 Noncompliance (Chronic) Z91.19 Diabetic neuropathy (Chronic) E11.40 Diabetic nephropathy (Chronic) E11.21 Diabetic retinopathy (Chronic) E11.319 HLD (hyperlipidemia) (Chronic) E78.5 Blind left eye (Chronic) H54.40 Diabetes mellitus type II, uncontrolled (Chronic) E11.65 Dx : 1993 Discussed with patient need to check BG in pairs, learn carb counting and then we can determine I/C ratio for him at last visit. is doing well with his diet. He stopped his basalglar. He is willing to start again at lower dose and titrate back up. He will start at 10 units and increase by 2-3 units every 3 days if he is waking with higher BG than he went to bed with. I have also decrease his correction to 1-50 so that he is not going low after correction. I have given he an alternative correction scale to use if he needs less correction when he begins with higer dose of basaglar and finds his current correction may be too strong. On statin On asa Anxiety and depression (Chronic) F41.9, F32.9 GERD (gastroesophageal reflux disease) (Chronic) K21.9 Chewing tobacco nicotine dependence (Chronic) F17.220 ILDA (acute kidney injury) (Ruled-out) N17.9 Right leg pain (Resolved) M79.604 Chronic ulcer of 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 (Resolved) L97.912 Cellulitis and abscess of right leg (Resolved) L03.115, L02.415 History of acute myocardial infarction (Chronic) I25.2 Kidney failure N19 Kidney stones N20.0 Pneumonia J18.9 Vision problems H54.7 Fistula Onset Date: ~12/2018 L98.8 Rt UE History of left heart catheterization (LHC) Onset Date: ~06/26/11 Z98.890 Per cath 06/26/11- LAD 10% ostial stenosis, 10% proximal, 20-30% distal stenosis, Ramus 10-20% mid stenosis, OM1 20-30% mid stenosis Hypertensive emergency (Resolved) I16.1 Hypokalemia (Resolved) E87.6 Allergies No Known Allergies Allergy (Verified 03/18/19 15:08) Home Medications: Ambulatory Orders Medication Instructions Recorded Gabapentin [Neurontin] 300 mg PO TIDCM 07/15/13 Atorvastatin Calcium [Lipitor] 20 mg PO QHS 11/19/17 Atenolol [Tenormin (beta elizabeth)] 100 mg PO DAILY 11/28/17 tamsulosin 0.4 mg capsule 0.4 mg PO DAILY cap 01/20/18 insulin glargine (U-100) 100 4 - 6 unit SQ QHS ml 07/11/18 unit/mL (3 mL) subcutaneous pen Calcitriol [Rocaltrol] 0.5 mcg PO DAILY 08/04/18 Aspirin [Aspirin, Baby] 81 mg PO DAILY@0800 08/21/18 Calcium Acetate [Phoslo Gel Cap] 667 mg PO TIDCM #90 cap 08/25/18 Furosemide [Lasix] 80 mg PO BID@1000,1800 #30 tab 08/25/18 Insulin Lispro [Humalog KwikPen] See Protocol SQ ACHS insuln.pen 08/25/18 Acetaminophen [Tylenol] 1,000 mg PO Q6H PRN PRN 08/26/18 Bupropion HCl [Bupropion Xl] 300 mg PO DAILY 08/26/18 Amlodipine [Norvasc] 10 mg PO DAILY #0 08/29/18 Hydralazine HCl 25 mg PO TID #90 tab 08/29/18 Surgical History: Surgical History (Last Reviewed 03/18/19 @ 15:10 by Mary Johnson) History of appendectomy Z90.49 History of arteriovenostomy for renal dialysis Onset Date: ~08/2018 Z99.2 Status post insertion of dialysis catheter Onset Date: ~08/2018 Z95.828, Z99.2 History of eye surgery Z98.890 Lt retinal tear History of cholecystectomy Z90.49 Surgical History: cholecystectomy, - - AVF rt forearm 08/08/18 Psychiatric History: Anxiety, Depression Smoking Status: Never smoker - *Family History Maternal Family History: Family History (Last Reviewed 03/18/19 @ 15:10 by Mary Johnson) Mother Heart disease Hypertension Father Cancer Brother Cancer Diabetes Sister Diabetes History Items: Heart Disease Paternal Family History: Family History (Last Reviewed 03/18/19 @ 15:10 by Mary Johnson) Mother Heart disease Hypertension Father Cancer Brother Cancer Diabetes Sister Diabetes History Items: Cancer - Father w/ Colon CA. Sibling Family History: Family History (Last Reviewed 03/18/19 @ 15:10 by Mary Johnson) Mother Heart disease Hypertension Father Cancer Brother Cancer Diabetes Sister Diabetes History Items: Diabetes - sister, brother who passed, no kidney disease Review of Systems Constitutional: Denies: Chills, Fever, Weight Change HEENT: Denies: Head Aches, Sinus Congestion, Sinus Drainage Cardiovascular: Denies: Chest Pain, Palpitations Respiratory: Reports: Cough, Shortness of breath at rest. Denies: Sputum production Gastrointestinal: Denies: Abdominal Pain, Nausea, Vomiting Genitourinary: Denies: Dysuria Musculoskeletal: Denies: Joint Pain, Joint Tenderness Skin: Denies: Rash, Wounds Neurological: Denies: Numbness, Tingling, Focal weakness Psychiatric: Denies: Anxiety, Depression, Homicidal Ideations, Suicidal Ideations Hematologic/ Lymphatic: Denies: Easy Bruising, Easy Bleeding VTE Information - Inpt Only VTE Present on Admission: No VTE Mechan Device Prophylaxis: SCD's VTE Pharm Prophylaxis ordered?: No Patient Problems: Active and Suspected Problems (Last Updated 03/18/19 @ 15:11 by Mary Johnson) Dyspnea (Acute) Pulmonary edema (Acute) - Physical Exam Vitals/I&O's: Vital Signs Temp Pulse Resp BP Pulse Ox 101 F H 93 19 H 152/87 H 97 07/13/19 22:44 07/13/19 23:18 07/13/19 23:18 07/13/19 23:18 07/13/19 23:18 Oxygen Flow Rate (L/min) 3 Oxygen Delivery Method Room Air Weight: 210 lb Body Mass Index (BMI) 31.9 Finger Stick Blood Glucose 149 General: Alert HEENT: Atraumatic, Normocephalic Neck: Supple Lungs: Clear to auscultation, Normal air movement Cardiovascular: Regular rate, Normal S1, Normal S2, No murmurs Abdomen: Bowel Sounds Present, Non Tender Extremities: No edema Skin: No rashes Musculoskeletal: No Tenderness to Palpation of Joints or Extremities Neurological: Neuro grossly intact Psych/Mental Status: Normal Affect, Appropriate Microbiology Past 72 Hours 07/13/19 21:07 Mucosa - Throat Group A Streptococcus Rapid Screen - Pre liminary 07/13/19 22:00 Mucosa - Nose Influenza Types A,B Direct FA (PARTH) - Final Laboratory Results 07/13/19 21:13: WBC 9.3, RBC 3.43 L, Hgb 10.8 L, Hct 32.1 L, MCV 93.6, MCH 31.5, MCHC 33.6, RDW Std Deviation 43.9, RDW Coeff of Tomy 12.9, Plt Count 201, MPV 9.8, Immature Gran % (Auto) 0.200, Neut % (Auto) 81.8 H, Lymph % (Auto) 7.4 L, Cass % (Auto) 9.0, Eos % (Auto) 1.1, Baso % (Auto) 0.5, Absolute Neuts (auto) 7.6, Absolute Lymphs (auto) 0.68 L, Nucleated RBC % 0 07/13/19 21:13: Sodium 137, Potassium 4.4, Chloride 100, Carbon Dioxide 23.0, Anion Gap 14, BUN 71 H, Creatinine 10.70 H*, Estim Creat Clear Calc 7.99, Est GFR (MDRD) Af Amer 7 L, Est GFR (MDRD) Non-Af 5 L, BUN/Creatinine Ratio 6.6 L, Glucose 114 H, Calcium 7.8 L Assessment/Plan All Active Problems (Last Updated 03/18/19 @ 15:11 by Mary Johnson) Dyspnea (Acute) Pulmonary edema (Acute) Problem with dialysis access (Acute) Anasarca associated with disorder of kidney (Acute) Retention, urine (Acute) Acute on chronic diastolic CHF (congestive heart failure) (Acute) Acute hypoxemic respiratory failure (Ruled-out) Hypoglycemia (Acute) Acute respiratory failure with hypoxia (Ruled-out) ILDA (acute kidney injury) (Ruled-out) Right leg pain (Resolved) Chronic ulcer of 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 (Resolved) Cellulitis and abscess of right leg (Resolved) Hypertensive emergency (Resolved) Hypokalemia (Resolved) Chronic Problems (Last Updated 03/18/19 @ 15:11 by Mary Johnson) Atherosclerotic heart disease of [place] coronary artery without angina pectoris (Chronic) Per cath 06/26/11- LAD 10% ostial stenosis, 10% proximal, 20-30% distal stenosis, Ramus 10-20% mid stenosis, OM1 20-30% mid stenosis Essential hypertension (Chronic) Chronic renal failure, stage 5 (Chronic) Ectopic cardiac beats (Chronic) Anemia of chronic renal failure, stage 4 (severe) (Chronic) Chronic renal failure, stage 4 (severe) (Chronic) Is currently following with nephrology. Also following with urology. Is trying to follow his low protein diet and feels he is doing well with it. Obesity (BMI 30-39.9) (Chronic) Noncompliance (Chronic) Diabetic neuropathy (Chronic) Diabetic nephropathy (Chronic) Diabetic retinopathy (Chronic) HLD (hyperlipidemia) (Chronic) Blind left eye (Chronic) Diabetes mellitus type II, uncontrolled (Chronic) Dx : 1990 Discussed with patient need to check BG in pairs, learn carb counting and then we can determine I/C ratio for him at last visit. is doing well with his diet. He stopped his basalglar. He is willing to start again at low er dose and titrate back up. He will start at 10 units and increase by 2-3 units every 3 days if he is waking with higher BG than he went to bed with. I have also decrease his correction to 1-50 so that he is not going low after correction. I have given he an alternative correction scale to use if he needs less correction when he begins with higer dose of basaglar and finds his current correction may be too strong. On statin On asa Anxiety and depression (Chronic) GERD (gastroesophageal reflux disease) (Chronic) Chewing tobacco nicotine dependence (Chronic) History of acute myocardial infarction (Chronic) Plan 1. Shortness of breath/pulmonary congestion secondary to not having had his dialysis?admit to general medical floor, consult nephrology repeat CBC BMP in the morning, Tessalon Perles as needed for cough, attempt some diuresis with Lasix 2. Diabetes?continue current care 3. Hyperlipidemia continue current medication 4. dVT prophylaxis?SCDs Code Visit Inpatient E&M: 33562 Init Hosp L3
[2019-07-13] MEDS: Furosemide 40 MG/4 ML Vial IV (23:30)
[2019-07-13 23:47] VITALS: BMI 33.0
[2019-07-13 23:50] VITALS: BP 153/81; PULSE 89; RESP 24; TEMP 37.6; O2SAT 95
[2019-07-13 23:59] VITALS: BMI 33.1
[2019-07-14] VITALS (21 sets, daily range): BP systolic 126–191; BP diastolic 55–91; PULSE 82–94; RESP 18–32; TEMP 36.9–38.7; O2SAT 85–98
[2019-07-14] MEDS: hydrALAZINE 25 MG Tablet PO ×2 (04:49→21:40)
[2019-07-14 06:49] LABS: Absolute Lymphocyte Count 0.87 X10^3/uL (0.83-4.51); Absolute Neutrophil Count 7.8 X10^3/uL (2.0-7.7); Basophil# 0.04 X10^3/uL; Basophil% 0.4 % (0-1); Hematocrit 30.5 % (40-54); Hemoglobin 10.3 g/dL (13.0-16.5); Lymphocyte # 0.87 X10^3/ul (4.0); Lymphocyte % 8.9 % (19-41); Mean Corp Hgb Conc 33.8 g/dL (32-36); Mean Corpuscular Hgb 31.9 pg (27.0-32.0); Mean Corpuscular Volume 94.4 fL (80-94); Mean Platelet Vol. 10.1 fl (6.2-12.0); Monocyte# 0.87 X10^3/uL; Monocyte% 8.9 % (0-10); NRBC Flagged by Analyzer 0 % (0-5); Neutrophil # 7.82 X10^3/uL (2.7-7.7); Neutrophil % 80.3 % (47-70); Platelet Count 169 K/mm3 (150-450); RBC Distribution Width CV 12.7 % (11.6-14.6); RBC Distribution Width SD 43.8 fl (35.1-43.9); Red Blood Count 3.23 M/mm3 (4.6-6.2); White Blood Count 9.8 K/mm3 (4.4-11.0)
[2019-07-14 07:25] LABS: Bedside Glucose 94 mg/dL (70-110)
[2019-07-14 07:31] LABS: Anion Gap 16 (5-15); BUN 75 mg/dL (7-18); BUN/Creat Ratio 6.6 RATIO (10-20); Calcium,Total 7.3 mg/dL (8.5-10.1); Chloride 101 mmol/L (98-107); EST Glomerular Filtration Rate 5 mL/min (>60); Est Glom Filt Rate - Afr Amer 6 mL/min (>60); Glucose 102 mg/dL (74-106); Potassium 4.6 mmol/L (3.5-5.1); Sodium Level 138 mmol/L (136-145)
[2019-07-14] MEDS: Aspirin 81 MG TAB.CHEW PO (07:33)
[2019-07-14] MEDS: Acetaminophen 500 MG Tablet 1000 MG PO ×3 (07:33→19:51)
[2019-07-14] MEDS: Calcium Acetate 667 MG Capsule PO ×2 (07:33→17:07)
[2019-07-14] MEDS: Gabapentin 300 MG Capsule PO ×2 (07:33→17:07)
--- NOTE | 2019-07-14 09:17 | PN_ITS ---
Patient Problems: Active and Suspected Problems (Last Updated 03/18/19 @ 15:11 by Mary Johnson) Dyspnea (Acute) Pulmonary edema (Acute) Subjective: Patient seen and examined. He was admitted with complaint of shortness of breath as well as fever and chills and a cough. He missed dialysis yesterday as he could not go due to his symptoms. He has been managed for shortness of breath due to fluid overload from missed dialysis. Patient seen and examined. He still complains of feeling weak. He still coughing but it is nonproductive. He denies any chest pain or palpitations, dizziness, diarrhea or vomiting but still has shortness of breath. He was noted to be hypoxic and going down to 91% even on 6 L of oxygen. On room air he desaturated to the 80s. Nephrology is on board and patient is awaiting dialysis. Absent vitals reviewed. Patient noted to have spiked fever to 101.7 Fahrenheit this morning he is tachypneic with respiratory rate of 28. Vitals otherwise stable. Vitals/I&O's: Vital Signs Temp Pulse Resp BP Pulse Ox 101.7 F H 90 28 H 154/72 H 90 07/14/19 08:31 07/14/19 08:31 07/14/19 08:31 07/14/19 08:31 07/14/19 08:31 Oxygen Flow Rate (L/min) 4 Oxygen Delivery Method Nasal Cannula Weight: 217 lb 6.012 oz Body Mass Index (BMI) 33.0 Finger Stick Blood Glucose 149 Intake and Output for Last 24 Hours 07/12/19 07/13/19 07/14/19 23:59 23:59 23:59 Intake Total 1000 / 1000 200 / 200 Output Total 150 / 150 Balance 1000 / 1000 50 / 50 General: Alert, Oriented x3, Cooperative, Lethargic HEENT: Atraumatic, PERRLA, EOMI, Normocephalic Oral: Moist Mucosa Neck: Supple, No JVD, Negative Carotid Bruits Lungs: - - decreased breath sounds bibasally, no wheezes or crackles. on 4L of oxygen by nasal canula Cardiovascular: Regular rate, Regular Rhythm, Normal S1, Normal S2, No murmurs Abdomen: Bowel Sounds Present, Soft, Non Tender Extremities: No clubbing, No cyanosis, No edema, Capillary Refill Less than 3 Seconds Skin: No rashes, No breakdown Musculoskeletal: No Tenderness to Palpation of Joints or Extremities, - - AV fistula in LUE with good thrill Lymphatic: No Cervical, Supraclavicular, or Inguinal Adenopathy Neurological: Cranial nerves II-XII grossly intact, Neuro grossly intact, Motor Exam 5/5 strength throughout Psych/Mental Status: Normal Affect, Appropriate, Alert and oriented to time, place, person, mood and affect Microbiology Past 72 Hours 07/13/19 21:07 Mucosa - Throat Group A Streptococcus Rapid Screen - Preliminary 07/13/19 22:00 Mucosa - Nose Influenza Types A,B Direct FA (PARTH) - Final Laboratory Results 07/13/19 21:13: WBC 9.3, RBC 3.43 L, Hgb 10.8 L, Hct 32.1 L, MCV 93.6, MCH 31.5, MCHC 33.6, RDW Std Deviation 43.9, RDW Coeff of Tomy 12.9, Plt Count 201, MPV 9.8, Immature Gran % (Auto) 0.200, Neut % (Auto) 81.8 H, Lymph % (Auto) 7.4 L, [place] % (Auto) 9.0, Eos % (Auto) 1.1, Baso % (Auto) 0.5, Absolute Neuts (auto) 7.6, Absolute Lymphs (auto) 0.68 L, Nucleated RBC % 0 07/13/19 21:13: Sodium 137, Potassium 4.4, Chloride 100, Carbon Dioxide 23.0, Anion Gap 14, BUN 71 H, Creatinine 10.70 H*, Estim Creat Clear Calc 7.99, Est GFR (MDRD) Af Amer 7 L, Est GFR (MDRD) Non-Af 5 L, BUN/Creatinine Ratio 6.6 L, Glucose 114 H, Calcium 7.8 L 07/14/19 06:00: WBC 9.8, RBC 3.23 L, Hgb 10.3 L, Hct 30.5 L, MCV 94.4 H, MCH 31.9, MCHC 33.8, RDW Std Deviation 43.8, RDW Coeff of Tomy 12.7, Plt Count 169, MPV 10.1, Immature Gran % (Auto) 0.500, Neut % (Auto) 80.3 H, Lymph % (Auto) 8.9 L, [place] % (Auto) 8.9, Eos % (Auto) 1.0, Baso % (Auto) 0.4, Absolute Neuts (auto) 7.8 H, Absolute Lymphs (auto) 0.87, Nucleated RBC % 0 07/14/19 06:00: Sodium 138, Potassium 4.6, Chloride 101, Carbon Dioxide 21.0, Anion Gap 16 H, BUN 75 H, Creatinine 11.40 H*, Estim Creat Clear Calc 7.50, Est GFR (MDRD) Af Amer 6 L, Est GFR (MDRD) Non-Af 5 L, BUN/Creatinine Ratio 6.6 L, Glucose 102, Calcium 7.3 L 07/14/19 06:47: POC Glucose 94 Diagnostic Data Chest X-Ray 07/13/19 22:10 IMPRESSION: Possible diffuse airspace disease in a patient with cardiomegaly suggests pulmonary edema and probable CHF. Additionally this could be nephrogenic pulmonary edema.. at 2233 Reported and signed by: Torres Kelly MD Electronically Signed: Torres Kelly MD at 22:32 EST Tel , Service support , Current Medications Acetaminophen (Tylenol) 1,000 mg PO Q6H PRN PRN PRN Reason: Pain Score 1-10/10 Last Admin: 07/14/19 07:33 Dose: 1,000 mg Documented by: Amlodipine Besylate (Norvasc) 10 mg PO DAILY [facility] Aspirin (Aspirin, Baby) 81 mg PO DAILY@0800 [facility] Last Admin: 07/14/19 07:33 Dose: 81 mg Documented by: Atenolol (Tenormin (Beta Silvana)) 100 mg PO DAILY [facility] Atorvastatin Calcium (Lipitor) 20 mg PO QHS [facility] Bupropion HCl (Wellbutrin Xl) 300 mg PO DAILY [facility] Calcitriol (Rocaltrol) 0.5 mcg PO DAILY [facility] Calcium Acetate (Phoslo Gel Cap) 667 mg PO TIDCM [facility] Last Admin: 07/14/19 07:33 Dose: 667 mg Documented by: Dextrose (D50w Syringe) 0 gm IV X1 PRN; Protocol PRN Reason: Hypoglycemia Furosemide (Lasix) 80 mg PO BID@1000,1800 [facility] Gabapentin (Neurontin) 300 mg PO TIDCM [facility] Last Admin: 07/14/19 07:33 Dose: 300 mg Documented by: Glucagon () 1 mg IM .X1 PRN PRN Reason: Hypoglycemia Hydralazine HCl (Apresoline) 25 mg PO TID [facility] Last Admin: 07/14/19 04:49 Dose: 25 mg Documented by: Azithromycin 500 mg/ Dextrose 255 mls @ 250 mls/hr IV Q24 [facility] Ceftriaxone Sodium (Rocephin) 1 gm in 50 mls @ 100 mls/hr IV Q12 [facility] Insulin Glargine (Lantus (Bkc)) 4 units SC QHS [facility] Insulin Human Lispro (Humalog Kwikpen (Bk)) 0 unit SC ACHS [facility]; Protocol Last Admin: 07/14/19 06:48 Dose: Not Given Documented by: Sodium Chloride () 10 - 40 ml IV UD PRN PRN Reason: SALINE FLUSH Tamsulosin HCl (Flomax) 0.4 mg PO DAILY [facility] STROKE Vital Signs/Narrative: Vital Signs Temp Pulse Resp BP Pulse Ox 07/14/19 08:31 101.7 F H 90 28 H 154/72 H 90 07/14/19 07:21 100.6 F H 92 32 H 191/91 H 94 07/14/19 06:59 99.4 F H 92 24 H 158/84 H 93 07/14/19 05:56 20 H Medical Necessity - Tobacco Use Smoking Status: Never smoker Assessment/Plan All Active Problems (Last Updated 03/18/19 @ 15:11 by Mary Johnson) Dyspnea (Acute) Pulmonary edema (Acute) Problem with dialysis access (Acute) Anasarca associated with disorder of kidney (Acute) Retention, urine (Acute) Acute on chronic diastolic CHF (congestive heart failure) (Acute) Acute hypoxemic respiratory failure (Ruled-out) Hypoglycemia (Acute) Acute respiratory failure with hypoxia (Ruled-out) ILDA (acute kidney injury) (Ruled-out) Right leg pain (Resolved) Chronic ulcer of 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 (Resolved) Cellulitis and abscess of right leg (Resolved) Hypertensive emergency (Resolved) Hypokalemia (Resolved) 1. Sepsis due to community acquired pneumonia * SIRS criteria 2/4 (fever and SOB). also has a cough, though this has been fairly dry so far * temperature peaked at 101.7F * CXR showed diffuse airspace disease suspicious for pulmonary edema * no leucocytosis * will check lactic acid, and start IV ceftriazone and azithromycin. * influenza screen was negative; will check urine for strep and legionella, as well as blood cultures and respiratory panel * 2. Acute hypoxic respiratory failure due to fluid overload and community acquired pneumonia * requiring up to 4L of oyxgen; tachypneic as well * nephrology consulted as he missed dialysis yesterday * will need urgent dialysis to help relieve symptoms * tittate oxygten to maintain sats>90% * continue breathing treatments * 3. Fluid overload due to missed dialysis: As under 2. Also on IV Lasix 40 mg twice daily 4. 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 Nephrology consulted. * On PhosLo and calcitriol * 5. Type 2 diabetes mellitus: On Lantus 4 units nightly and insulin sliding scale. Accu-Cheks before meals at bedtime. 6. Hypertension: On hydralazine and atenolol as well as amlodipine 7. Hyperlipidemia: On statin DVT prophylaxis: SCDs Code Visit Inpatient E&M: 70962 Subs Hosp L3
[2019-07-14] MEDS: 0.9% Saline Lock 10 ML Syringe IV ×3 (09:32→23:10)
[2019-07-14] MEDS: amLODIPine 10 MG Tablet PO (09:37)
[2019-07-14] MEDS: Tamsulosin HCl 0.4 MG Capsule PO (09:38)
[2019-07-14] MEDS: Atenolol 100 MG Tablet PO (09:38)
[2019-07-14] MEDS: buPROPion (XL) 300 MG TABLET.XL PO (09:38)
[2019-07-14] MEDS: Calcitriol 0.25 MCG Capsule 0.5 MCG PO (09:38)
[2019-07-14] MEDS: Furosemide 80 MG Tablet PO ×2 (09:38→17:07)
[2019-07-14 10:04] LABS: Lactic Acid 0.9 mmol/L (0.4-2.0)
--- NOTE | 2019-07-14 10:07 | NURSING ---
dialysis here to treat pt.
[2019-07-14 10:51] LABS: Bedside Glucose 135 mg/dL (70-110)
--- NOTE | 2019-07-14 11:37 | CASEMGMT ---
LW/POA forms both scanned into summary tab of [facility], Ying Amin is listed as pt's medical POA. MATTHEW Rodriguez
--- NOTE | 2019-07-14 11:50 | CASEMGMT ---
RN CM Assessment Patient currently receiving HD at bedside, Introduced role of RN CM to patient.? Patient is alert, oriented and able?to participate in RN CM Assessment. ?Care providers, pharmacy, and demographics verified. Presentation: C/o cough, fever, some N/v. H/o CKD on HD Admit Dx: Pulmonary edema, renal failure Re-Admit: No Barriers/Issues: None. HD Ctr: [facility], Days: M//, Chair Time: 11:45. Missed HD on Saturday07/13/19 d/t not feeling well. Uses [facility] to transport to HD. PCP: Zaida Mcneil Specialists: Nephro- Dr Montiel Preferred Pharmacy: [facility] Rx Benefit:?Yes LNOK: Significant Other- Ying Amin LW/HPOA: Both on file at [facility], HPOA- Sig. Other Ying Eloisa Living Arrangements:? Lives with Sig. Other in a 2 story home, Bedroom/living on upper level with 13 steps to enter home. ADL?s: Ambulates with cane, Independent with ADLs Transportation: Sig. Other Ying and [facility] for HD DME: Cane, CPAP- [facility] HHC: Past, Cannot recall Agency SNF: None Goal: Home and does not think will have any needs. Denies any questions, concerns, or issues with DC planning at this time. Aware CM remains available for any emerging needs. DC PLAN: Home and CM to monitor Oxygen status as currently on O2 but not on Home O2. Assess for Home O2 need upon DC. DIVINA Angelo
--- NOTE | 2019-07-14 12:38 | PCM.CONS.R ---
Consultation - Renal 07/14/19 PCP/ Referring MD: Requesting physician: [] Primary care physician: Zaida Mcneil MD Reason for Consultation:: ESRD HD MWF - History of Present Illness History of Present Illness: The patient is a 48 year old M with past medical history of ESRD due to diabetes on HD MWF, missed dialysis yesterday for not feeling well with flu-like symptoms since weekend. Complained of fever, chills, nonproductive cough. He had dyspnea with coug. Denied chest pain but had nausea, vomiting, anorexia. Denied abdominal pain or diarrhea. He has been able to keep his medications down. He is currently on dialysis with stable BP. Remains SOB with cough, wheeze. - Allergies Allergies: Allergies No Known Allergies Allergy (Verified 03/18/19 15:08) - Current Medications Current Medications: Current Medications Acetaminophen (Tylenol) 1,000 mg PO Q6H PRN PRN PRN Reason: Pain Score 1-06/18 Last Admin: 07/14/19 07:33 Dose: 1,000 mg Documented by: Amlodipine Besylate (Norvasc) 10 mg PO DAILY [facility] Last Admin: 07/14/19 09:37 Dose: 10 mg Documented by: Aspirin (Aspirin, Baby) 81 mg PO DAILY@0800 [facility] Last Admin: 07/14/19 07:33 Dose: 81 mg Documented by: Atenolol (Tenormin (Beta Silvana)) 100 mg PO DAILY [facility] Last Admin: 07/14/19 09:38 Dose: 100 mg Documented by: Atorvastatin Calcium (Lipitor) 20 mg PO QHS [facility] Bupropion HCl (Wellbutrin Xl) 300 mg PO DAILY [facility] Last Admin: 07/14/19 09:38 Dose: 300 mg Documented by: Calcitriol (Rocaltrol) 0.5 mcg PO DAILY [facility] Last Admin: 07/14/19 09:38 Dose: 0.5 mcg Documented by: Calcium Acetate (Phoslo Gel Cap) 667 mg PO TIDCM [facility] Last Admin: 07/14/19 07:33 Dose: 667 mg Documented by: Dextrose (D50w Syringe) 0 gm IV X1 PRN; Protocol PRN Reason: Hypoglycemia Furosemide (Lasix) 80 mg PO BID@1000,1800 [facility] Last Admin: 07/14/19 09:38 Dose: 80 mg Documented by: Gabapentin (Neurontin) 300 mg PO TIDCM [facility] Last Admin: 07/14/19 07:33 Dose: 300 mg Documented by: Glucagon () 1 mg IM .X1 PRN PRN Reason: Hypoglycemia Hydralazine HCl (Apresoline) 25 mg PO TID [facility] Last Admin: 07/14/19 04:49 Dose: 25 mg Documented by: Azithromycin 500 mg/ Dextrose 255 mls @ 250 mls/hr IV Q24 [facility] Last Infusion: 07/14/19 10:47 Dose: Infused Documented by: Ceftriaxone Sodium (Rocephin) 1 gm in 50 mls @ 100 mls/hr IV Q12 [facility] Insulin Glargine (Lantus (Bk)) 4 units SC QHS [facility] Insulin Human Lispro (Humalog Kwikpen ([facility])) 0 unit SC ACHS [facility]; Protocol Last Admin: 07/14/19 10:47 Dose: Not Given Documented by: Sodium Chloride () 10 - 40 ml IV UD PRN PRN Reason: SALINE FLUSH Last Admin: 07/14/19 09:32 Dose: 10 ml Documented by: Tamsulosin HCl (Flomax) 0.4 mg PO DAILY [facility] Last Admin: 07/14/19 09:38 Dose: 0.4 mg Documented by: - Past Medical History Past Medical History (Chronic Problems): Chronic Problems (Last Updated 03/18/19 @ 15:11 by Mary Johnson) Atherosclerotic heart disease of [place] coronary artery without angina pectoris (Chronic) Per cath 06/26/11- LAD 10% ostial stenosis, 10% proximal, 20-30% distal stenosis, Ramus 10-20% mid stenosis, OM1 20-30% mid stenosis Essential hypertension (Chronic) Chronic renal failure, stage 5 (Chronic) Ectopic cardiac beats (Chronic) Anemia of chronic renal failure, stage 4 (severe) (Chronic) Chronic renal failure, stage 4 (severe) (Chronic) Is currently following with nephrology. Also following with urology. Is trying to follow his low protein diet and feels he is doing well with it. Obesity (BMI 30-39.9) (Chronic) Noncompliance (Chronic) Diabetic neuropathy (Chronic) Diabetic nephropathy (Chronic) Diabetic retinopathy (Chronic) HLD (hyperlipidemia) (Chronic) Blind left eye (Chronic) Diabetes mellitus type II, uncontrolled (Chronic) Dx : 1992 Discussed with patient need to check BG in pairs, learn carb counting and then we can determine I/C ratio for him at last visit. is doing well with his diet. He stopped his basalglar. He is willing to start again at lower dose and titrate back up. He will start at 10 units and increase by 2-3 units every 3 days if he is waking with higher BG than he went to bed with. I have also decrease his correction to 1-50 so that he is not going low after correction. I have given he an alternative correction scale to use if he needs less correction when he begins with higer dose of basaglar and finds his current correction may be too strong. On statin On asa Anxiety and depression (Chronic) GERD (gastroesophageal reflux disease) (Chronic) Chewing tobacco nicotine dependence (Chronic) History of acute myocardial infarction (Chronic) - Past Surgical History Surgical History: cholecystectomy, - - AVF rt forearm 08/08/18 - Social History Smoking Status: Never smoker - Family History Maternal Family History: Family History (Last Reviewed 03/18/19 @ 15:10 by Mary Johnson) Mother Heart disease Hypertension Father Cancer Brother Cancer Diabetes Sister Diabetes History Items: Heart Disease Paternal Family History: Family History (Last Reviewed 03/18/19 @ 15:10 by Mary Johnson) Mother Heart disease Hypertension Father Cancer Brother Cancer Diabetes Sister Diabetes History Items: Cancer - Father w/ Colon CA. Sibling Family History: Family History (Last Reviewed 03/18/19 @ 15:10 by Mary Johnson) Mother Heart disease Hypertension Father Cancer Brother Cancer Diabetes Sister Diabetes History Items: Diabetes - sister, brother who passed, no kidney disease Review of Systems Constitutional: Reports: Anorexia, Chills, Fever, Malaise, Weakness, Fatigue Cardiovascular: Denies: Chest Pain, Edema, Syncope Respiratory: Reports: Cough, Shortness of breath at rest, Wheezing Gastrointestinal: Reports: Nausea, Vomiting. Denies: Abdominal Pain, Diarrhea Genitourinary: Denies: Dysuria Skin: Denies: Rash Neurological: Denies: Balance problems Hematologic/ Lymphatic: Reports: Anemia Patient Problems: Active and Suspected Problems (Last Updated 03/18/19 @ 15:11 by Mary Johnson) Dyspnea (Acute) Pulmonary edema (Acute) - Physical Exam Vitals/I&O's: Vital Signs Temp Pulse Resp BP Pulse Ox 99.4 F H 82 20 H 137/70 H 93 11/05/19 09:35 07/14/19 09:35 07/14/19 09:35 07/14/19 09:35 07/14/19 09:35 Oxygen Flow Rate (L/min) 4 Oxygen Delivery Method Nasal Cannula Weight: 98.6 kg Body Mass Index (BMI) 33.0 Finger Stick Blood Glucose 149 Intake and Output for Last 24 Hours 07/12/19 07/13/19 07/14/19 23:59 23:59 23:59 Intake Total 1000 / 1000 1205 / 1205 Output Total 175 / 175 Balance 1000 / 1000 1030 / 1030 General: Alert, Oriented x3, Cooperative, - - weak, coughing HEENT: PERRLA, EOMI Neck: Supple, No JVD Lungs: Wheezes Cardiovascular: Regular rate Abdomen: Bowel Sounds Present, Soft, Non Tender, Non-Distended, Obese Extremities: No edema, - - AVF rt forearm Skin: No rashes Neurological: Cranial nerves II-XII grossly intact Psych/Mental Status: Normal Affect, Appropriate, Alert and oriented to time, place, person, mood and affect Microbiology Past 72 Hours 07/14/19 07:54 Mucosa - Nasopharyngeal Respiratory Panel (PCR) - Final Rhinovirus 07/14/19 09:29 Urine, Clean Catch Streptococcus pneumoniae Antigen (M - Final 07/14/19 09:29 Urine, Clean Catch Legionella Antigen - Final 07/13/19 21:07 Mucosa - Throat Group A Streptococcus Rapid Screen - Preliminary 07/13/19 22:00 Mucosa - Nose Influenza Types A,B Direct FA (PARTH) - Final Laboratory Results 07/13/19 21:13: WBC 9.3, RBC 3.43 L, Hgb 10.8 L, Hct 32.1 L, MCV 93.6, MCH 31.5, MCHC 33.6, RDW Std Deviation 43.9, RDW Coeff of Tomy 12.9, Plt Count 201, MPV 9.8, Immature Gran % (Auto) 0.200, Neut % (Auto) 81.8 H, Lymph % (Auto) 7.4 L, [place] % (Auto) 9.0, Eos % (Auto) 1.1, Baso % (Auto) 0.5, Absolute Neuts (auto) 7.6, Absolute Lymphs (auto) 0.68 L, Nucleated RBC % 0 07/13/19 21:13: Sodium 137, Potassium 4.4, Chloride 100, Carbon Dioxide 23.0, Anion Gap 14, BUN 71 H, Creatinine 10.70 H*, Estim Creat Clear Calc 7.99, Est GFR (MDRD) Af Amer 7 L, Est GFR (MDRD) Non-Af 5 L, BUN/Creatinine Ratio 6.6 L, Glucose 114 H, Calcium 7.8 L 07/14/19 06:00: WBC 9.8, RBC 3.23 L, Hgb 10.3 L, Hct 30.5 L, MCV 94.4 H, MCH 31.9, MCHC 33.8, RDW Std Deviation 43.8, RDW Coeff of Tomy 12.7, Plt Count 169, MPV 10.1, Immature Gran % (Auto) 0.500, Neut % (Auto) 80.3 H, Lymph % (Auto) 8.9 L, [place] % (Auto) 8.9, Eos % (Auto) 1.0, Baso % (Auto) 0.4, Absolute Neuts (auto) 7.8 H, Absolute Lymphs (auto) 0.87, Nucleated RBC % 0 07/14/19 06:00: Sodium 138, Potassium 4.6, Chloride 101, Carbon Dioxide 21.0, Anion Gap 16 H, BUN 75 H, Creatinine 11.40 H*, Estim Creat Clear Calc 7.50, Est GFR (MDRD) Af Amer 6 L, Est GFR (MDRD) Non-Af 5 L, BUN/Creatinine Ratio 6.6 L, Glucose 102, Calcium 7.3 L 07/14/19 06:47: POC Glucose 94 07/14/19 09:33: Lactic Acid 0.9 07/14/19 10:44: POC Glucose 135 H Clinical Impression(s) from Imaging Studies Chest X-Ray 07/13/19 22:10 IMPRESSION: Possible diffuse airspace disease in a patient with cardiomegaly suggests pulmonary edema and probable CHF. Additionally this could be nephrogenic pulmonary edema.. at 2233 Reported and signed by: Torres Kelly MD Electronically Signed: Torres Kelly MD at 22:32 EST Tel , Service support , Current Medications Acetaminophen (Tylenol) 1,000 mg PO Q6H PRN PRN PRN Reason: Pain Score 1-06/18 Last Admin: 07/14/19 07:33 Dose: 1,000 mg Documented by: Amlodipine Besylate (Norvasc) 10 mg PO DAILY [facility] Last Admin: 07/14/19 09:37 Dose: 10 mg Documented by: Aspirin (Aspirin, Baby) 81 mg PO DAILY@0800 [facility] Last Admin: 07/14/19 07:33 Dose: 81 mg Documented by: Atenolol (Tenormin (Beta Silvana)) 100 mg PO DAILY [facility] Last Admin: 07/14/19 09:38 Dose: 100 mg Documented by: Atorvastatin Calcium (Lipitor) 20 mg PO QHS [facility] Bupropion HCl (Wellbutrin Xl) 300 mg PO DAILY [facility] Last Admin: 07/14/19 09:38 Dose: 300 mg Documented by: Calcitriol (Rocaltrol) 0.5 mcg PO DAILY [facility] Last Admin: 07/14/19 09:38 Dose: 0.5 mcg Documented by: Calcium Acetate (Phoslo Gel Cap) 667 mg PO TIDCM [facility] Last Admin: 07/14/19 07:33 Dose: 667 mg Documented by: Dextrose (D50w Syringe) 0 gm IV X1 PRN; Protocol PRN Reason: Hypoglycemia Furosemide (Lasix) 80 mg PO BID@1000,1800 [facility] Last Admin: 07/14/19 09:38 Dose: 80 mg Documented by: Gabapentin (Neurontin) 300 mg PO TIDCM [facility] Last Admin: 07/14/19 07:33 Dose: 300 mg Documented by: Glucagon () 1 mg IM .X1 PRN PRN Reason: Hypoglycemia Hydralazine HCl (Apresoline) 25 mg PO TID [facility] Last Admin: 07/14/19 04:49 Dose: 25 mg Documented by: Azithromycin 500 mg/ Dextrose 255 mls @ 250 mls/hr IV Q24 [facility] Last Infusion: 07/14/19 10:47 Dose: Infused Documented by: Ceftriaxone Sodium (Rocephin) 1 gm in 50 mls @ 100 mls/hr IV Q12 [facility] Insulin Glargine (Lantus (Bkc)) 4 units SC QHS [facility] Insulin Human Lispro (Humalog Kwikpen (Bkc)) 0 unit SC ACHS [facility]; Protocol Last Admin: 07/14/19 10:47 Dose: Not Given Documented by: Sodium Chloride () 10 - 40 ml IV UD PRN PRN Reason: SALINE FLUSH Last Admin: 07/14/19 09:32 Dose: 10 ml Documented by: Tamsulosin HCl (Flomax) 0.4 mg PO DAILY [facility] Last Admin: 07/14/19 09:38 Dose: 0.4 mg Documented by: Assessment/Plan All Active Problems (Last Updated 03/18/19 @ 15:11 by Mary Johnson) Dyspnea (Acute) Pulmonary edema (Acute) Problem with dialysis access (Acute) Anasarca associated with disorder of kidney (Acute) Retention, urine (Acute) Acute on chronic diastolic CHF (congestive heart failure) (Acute) Acute hypoxemic respiratory failure (Ruled-out) Hypoglycemia (Acute) Acute respiratory failure with hypoxia (Ruled-out) ILDA (acute kidney injury) (Ruled-out) Right leg pain (Resolved) Chronic ulcer of 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 (Resolved) Cellulitis and abscess of right leg (Resolved) Hypertensive emergency (Resolved) Hypokalemia (Resolved) 1. ESRD due to diabetes on HD MWF. Dialysis today for missed treatment yesterday. Next dialysis tomorrow 2. Fever, cough due to rhinovirus 3. Hypertension resume home meds 4. DM2 primary service mgmt 5. Anemia olga on dialysis.
[2019-07-14] MEDS: Ipratropium/Albuterol Sulfate 3 ML AMPUL.NEB INHALATION ×2 (13:14→19:48)
--- NOTE | 2019-07-14 15:04 | NURSING ---
edulated pt sig other to wear a mask while in room, but visitor refused stated she has already elham exposed. told visitor that is she has been coughing that she should wear a mask outside of room. and visitor refused to wear mask.
[2019-07-14] MEDS: Ceftriaxone 1 GM/50 ML BAG IV ×2 (15:43→23:10)
[2019-07-14] MEDS: Heparin 10,000 UNITS/10 ML Vial 7600 UNITS IV (15:45)
[2019-07-14 15:51] LABS: Bedside Glucose 93 mg/dL (70-110)
--- NOTE | 2019-07-14 15:53 | DIALYSIS ---
HD X 4 HRS ON 2K BATH. [id number] TOLERATED WELL. VENOFER 50MG GIVEN AND HEPARIN BOLUS. VITALS STABLE THRU OUT. PT TO HAVE ANOTHER HD TOMORROW
--- NOTE | 2019-07-14 16:13 | CHAPLAIN ---
Type of Pastoral Visit _x__ Initial Visit ___ Follow-up Visit ___ On-call Visit ___ General Patient Visit ___ Spiritual Assessment ___ Family Conference ___ Bereavement ___ Rapid Response ___ Code Blue ___ Other (describe below) Pastoral Care Referral From _x__ Patient ___ Family ___ Nurse ___ Physician ___ Corporate Buyer ___ Control Officer Manager ___ Other (describe below) Sacrament/Intervention ___ Active listening ___ Anointing ___ Religious ___ Bereavement ___ Communion ___ Danica exploration ___ ___ Life review _x__ Prayer ___ Reconciliation ___ Sacrament of Sick _x__ Supportive presence ___ Wedding ___ Other (describe below) Pastoral Comments
[2019-07-14] MEDS: Atorvastatin Calcium 20 MG Tablet PO (21:40)
[2019-07-14] MEDS: Insulin Lispro 100 UNIT/ML INSULN.PEN SC (21:48)
[2019-07-15] VITALS (19 sets, daily range): BP systolic 126–160; BP diastolic 64–86; PULSE 79–93; RESP 16–20; TEMP 37.1–38.7; O2SAT 83–97
[2019-07-15 02:21] LABS: Bedside Glucose 174 mg/dL (70-110)
[2019-07-15] MEDS: Acetaminophen 500 MG Tablet 1000 MG PO ×2 (02:32→22:26)
[2019-07-15 05:25] LABS: Absolute Lymphocyte Count 1.12 X10^3/uL (0.83-4.51); Absolute Neutrophil Count 5.9 X10^3/uL (2.0-7.7); Basophil# 0.03 X10^3/uL; Basophil% 0.4 % (0-1); Eosinophil# 0.03 X10^3/uL; Eosinophils% 0.4 % (0-5); Hematocrit 26.6 % (40-54); Lymphocyte # 1.12 X10^3/ul (4.0); Lymphocyte % 14.3 % (19-41); Mean Corp Hgb Conc 33.8 g/dL (32-36); Mean Corpuscular Hgb 31.3 pg (27.0-32.0); Mean Corpuscular Volume 92.4 fL (80-94); Mean Platelet Vol. 9.8 fl (6.2-12.0); Monocyte# 0.72 X10^3/uL; Monocyte% 9.2 % (0-10); NRBC Flagged by Analyzer 0 % (0-5); Neutrophil % 75.4 % (47-70); Platelet Count 116 K/mm3 (150-450); RBC Distribution Width CV 12.7 % (11.6-14.6); RBC Distribution Width SD 42.4 fl (35.1-43.9); Red Blood Count 2.88 M/mm3 (4.6-6.2); White Blood Count 7.8 K/mm3 (4.4-11.0)
[2019-07-15 05:43] LABS: Albumin, Serum 2.8 g/dL (3.2-5.0); BUN 49 mg/dL (7-18); BUN/Creat Ratio 6.3 RATIO (10-20); Calcium,Total 7.5 mg/dL (8.5-10.1); Chloride 95 mmol/L (98-107); Creatinine, Serum 7.72 mg/dL (0.70-1.30); EST Glomerular Filtration Rate 8 mL/min (>60); Est Glom Filt Rate - Afr Amer 10 mL/min (>60); Estimated Creatinine Clearance 11.08 ml/min; Glucose 118 mg/dL (74-106); Phosphorus 6.8 mg/dL (2.5-4.9); Potassium 3.9 mmol/L (3.5-5.1); Sodium Level 135 mmol/L (136-145)
[2019-07-15] MEDS: hydrALAZINE 25 MG Tablet PO ×3 (06:44→22:26)
[2019-07-15 06:55] LABS: Bedside Glucose 112 mg/dL (70-110)
[2019-07-15] MEDS: Ipratropium/Albuterol Sulfate 3 ML AMPUL.NEB INHALATION ×4 (06:57→23:39)
--- NOTE | 2019-07-15 09:08 | PCM.PN.REN ---
Patient Problems: Active and Suspected Problems (Last Updated 03/18/19 @ 15:11 by Mary Johnson) Dyspnea (Acute) Pulmonary edema (Acute) Subjective: Cough, wheezing improved. Appetite good. Afebrile. Dialysis this morning to get back on chronic dialysis schedule - Physical Exam Vitals/I&O's: Vital Signs Temp Pulse Resp BP Pulse Ox 98.7 F 88 20 H 141/86 H 97 07/15/19 06:50 07/15/19 06:57 07/15/19 06:57 07/15/19 06:50 07/15/19 06:57 Oxygen Flow Rate (L/min) 4 Oxygen Delivery Method Nasal Cannula Weight: 98.6 kg Body Mass Index (BMI) 33.0 Finger Stick Blood Glucose 149 Intake and Output for Last 24 Hours 07/13/19 07/14/19 07/15/19 23:59 23:59 23:59 Intake Total 1000 / 1000 1605 / 1905 400 / 400 Output Total 3875 / 3875 Balance 1000 / 1000 -2270 / -1970 400 / 400 General: Alert, Oriented x3, Cooperative, No apparent distress Lungs: Clear to auscultation Cardiovascular: Regular rate Abdomen: Bowel Sounds Present, Soft, Non Tender, Obese Extremities: No edema Psych/Mental Status: Normal Affect, Appropriate, Alert and oriented to time, place, person, mood and affect Microbiology Past 72 Hours 07/14/19 07:54 Mucosa - Nasopharyngeal Respiratory Panel (PCR) - Final Rhinovirus 07/14/19 09:29 Urine, Clean Catch Streptococcus pneumoniae Antigen (M - Final 07/14/19 09:29 Urine, Clean Catch Legionella Antigen - Final 07/13/19 21:07 Mucosa - Throat Group A Streptococcus Rapid Screen - Preliminary 07/13/19 22:00 Mucosa - Nose Influenza Types A,B Direct FA (PARTH) - Final Laboratory Results 07/14/19 09:33: Lactic Acid 0.9 07/14/19 10:44: POC Glucose 135 H 07/14/19 15:40: POC Glucose 93 07/14/19 21:39: POC Glucose 174 H 07/15/19 05:10: WBC 7.8, RBC 2.88 L, Hgb 9.0 L, Hct 26.6 L, MCV 92.4, MCH 31.3, MCHC 33.8, RDW Std Deviation 42.4, RDW Coeff of Tomy 12.7, Plt Count 116 L, MPV 9.8, Immature Gran % (Auto) 0.300, Neut % (Auto) 75.4 H, Lymph % (Auto) 14.3 L, [place] % (Auto) 9.2, Eos % (Auto) 0.4, Baso % (Auto) 0.4, Absolute Neuts (auto) 5.9, Absolute Lymphs (auto) 1.12, Nucleated RBC % 0 07/15/19 05:10: Sodium 135 L, Potassium 3.9, Chloride 95 L, Carbon Dioxide 28.0, BUN 49 H, Creatinine 7.72 H*, Estim Creat Clear Calc 11.08, Est GFR (MDRD) Af Amer 10 L, Est GFR (MDRD) Non-Af 8 L, BUN/Creatinine Ratio 6.3 L, Glucose 118 H, Calcium 7.5 L, Phosphorus 6.8 H, Albumin 2.8 L 07/15/19 06:49: POC Glucose 112 H Current Medications Acetaminophen (Tylenol) 1,000 mg PO Q6H PRN PRN PRN Reason: Pain Score 1-06/18 Last Admin: 07/15/19 02:32 Dose: 1,000 mg Documented by: Albuterol/Ipratropium (Duoneb) 3 ml INHALATION Q4HWA.RT [facility] Last Admin: 07/15/19 06:57 Dose: 3 ml Documented by: Amlodipine Besylate (Norvasc) 10 mg PO DAILY [facility] Last Admin: 07/14/19 09:37 Dose: 10 mg Documented by: Aspirin (Aspirin, Baby) 81 mg PO DAILY@0800 [facility] Last Admin: 07/14/19 07:33 Dose: 81 mg Documented by: Atenolol (Tenormin (Beta Silvana)) 100 mg PO DAILY [facility] Last Admin: 07/14/19 09:38 Dose: 100 mg Documented by: Atorvastatin Calcium (Lipitor) 20 mg PO QHS [facility] Last Admin: 07/14/19 21:40 Dose: 20 mg Documented by: Bupropion HCl (Wellbutrin Xl) 300 mg PO DAILY [facility] Last Admin: 07/14/19 09:38 Dose: 300 mg Documented by: Calcitriol (Rocaltrol) 0.5 mcg PO DAILY [facility] Last Admin: 11/05/19 09:38 Dose: 0.5 mcg Documented by: Calcium Acetate (Phoslo Gel Cap) 667 mg PO TIDCM [facility] Last Admin: 07/14/19 17:07 Dose: 667 mg Documented by: Dextrose (D50w Syringe) 0 gm IV X1 PRN; Protocol PRN Reason: Hypoglycemia Furosemide (Lasix) 80 mg PO BID@1000,1800 [facility] Last Admin: 07/14/19 17:07 Dose: 80 mg Documented by: Gabapentin (Neurontin) 300 mg PO TIDCM [facility] Last Admin: 07/14/19 17:07 Dose: 300 mg Documented by: Glucagon () 1 mg IM .X1 PRN PRN Reason: Hypoglycemia Hydralazine HCl (Apresoline) 25 mg PO TID [facility] Last Admin: 07/15/19 06:44 Dose: 25 mg Documented by: Azithromycin 500 mg/ Dextrose 255 mls @ 250 mls/hr IV Q24 [facility] Last Infusion: 07/14/19 10:47 Dose: Infused Documented by: Ceftriaxone Sodium (Rocephin) 1 gm in 50 mls @ 100 mls/hr IV Q12 [facility] Last Infusion: 07/14/19 23:40 Dose: Infused Documented by: Insulin Glargine (Lantus (Bkc)) 4 units SC QHS [facility] Last Admin: 07/14/19 21:49 Dose: 4 units Documented by: Insulin Human Lispro (Humalog Kwikpen (Bkc)) 0 unit SC ACHS [facility]; Protocol Last Admin: 07/15/19 06:49 Dose: Not Given Documented by: Sodium Chloride () 10 - 40 ml IV UD PRN PRN Reason: SALINE FLUSH Last Admin: 07/14/19 23:10 Dose: 10 ml Documented by: Tamsulosin HCl (Flomax) 0.4 mg PO DAILY [facility] Last Admin: 07/14/19 09:38 Dose: 0.4 mg Documented by: Medical Necessity - Tobacco Use Smoking Status: Never smoker Assessment/Plan All Active Problems (Last Updated 03/18/19 @ 15:11 by Mary Johnson) Dyspnea (Acute) Pulmonary edema (Acute) Problem with dialysis access (Acute) Anasarca associated with disorder of kidney (Acute) Retention, urine (Acute) Acute on chronic diastolic CHF (congestive heart failure) (Acute) Acute hypoxemic respiratory failure (Ruled-out) Hypoglycemia (Acute) Acute respiratory failure with hypoxia (Ruled-out) ILDA (acute kidney injury) (Ruled-out) Right leg pain (Resolved) Chronic ulcer of 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 (Resolved) Cellulitis and abscess of right leg (Resolved) Hypertensive emergency (Resolved) Hypokalemia (Resolved) 1. ESRD due to diabetes on HD MWF. Dialysis today back on chronic schedule. Ok to dc to home today from renal standpoint 2. Fever, cough rhinovirus 3. Hypertension resume home meds 4. DM2 primary service mgmt 5. Anemia olga on dialysis.
[2019-07-15] MEDS: Aspirin 81 MG TAB.CHEW PO (09:17)
[2019-07-15] MEDS: Calcium Acetate 667 MG Capsule PO ×3 (09:17→17:33)
[2019-07-15] MEDS: Gabapentin 300 MG Capsule PO ×3 (09:18→17:33)
--- NOTE | 2019-07-15 09:27 | PCM.PN.HOSP ---
Patient Problems: Active and Suspected Problems (Last Updated 03/18/19 @ 15:11 by Mary Johnson) Dyspnea (Acute) Pulmonary edema (Acute) Subjective: Patient seen and examined. He feels better today, and says shortness of breath has improved. He had dialysis yesterday. He tested positive for rhinovirus per respiratory panel. He denies any fever and states he thinks the fever has broken. He has some chest pain with coughing but states is much better now. He denies any palpitations or dizziness, diarrhea or vomiting. Review of systems otherwise negative. He is to have another session of dialysis today. Vitals/I&O's: Vital Signs Temp Pulse Resp BP Pulse Ox 98.7 F 85 18 126/75 H 95 07/15/19 09:14 07/15/19 09:14 07/15/19 09:14 07/15/19 09:14 07/15/19 09:14 Oxygen Flow Rate (L/min) 5 Oxygen Delivery Method Nasal Cannula Weight: 217 lb 6.012 oz Body Mass Index (BMI) 33.0 Finger Stick Blood Glucose 149 Intake and Output for Last 24 Hours 07/13/19 07/14/19 07/15/19 23:59 23:59 23:59 Intake Total 1000 / 1000 1605 / 1905 400 / 400 Output Total 3875 / 3875 Balance 1000 / 1000 -2270 / -1970 400 / 400 General: Alert, Oriented x3, Cooperative, No apparent distress HEENT: Atraumatic, PERRLA, EOMI, Normocephalic Oral: Moist Mucosa Neck: Supple, No JVD, Negative Carotid Bruits Lungs: Clear to auscultation, Normal air movement, No rhonchi, No wheeze, No rales; on 4L of oxygen Cardiovascular: Regular rate, Regular Rhythm, Normal S1, Normal S2, No murmurs Abdomen: Bowel Sounds Present, Soft, Non Tender, Non-Distended, No Hepato-splenomegaly Extremities: No clubbing, No cyanosis, No edema, Capillary Refill Less than 3 Seconds Skin: No rashes, No breakdown Musculoskeletal: No Tenderness to Palpation of Joints or Extremities; AV fistula with good thrill in LUE Lymphatic: No Cervical, Supraclavicular, or Inguinal Adenopathy Neurological: Cranial nerves II-XII grossly intact, Neuro grossly intact, Motor Exam 5/5 strength throughout Psych/Mental Status: Normal Affect, Appropriate, Alert and oriented to time, place, person, mood and affect Microbiology Past 72 Hours 07/14/19 07:54 Mucosa - Nasopharyngeal Respiratory Panel (PCR) - Final Rhinovirus 07/14/19 09:29 Urine, Clean Catch Streptococcus pneumoniae Antigen (M - Final 07/14/19 09:29 Urine, Clean Catch Legionella Antigen - Final 07/13/19 21:07 Mucosa - Throat Group A Streptococcus Rapid Screen - Preliminary 07/13/19 22:00 Mucosa - Nose Influenza Types A,B Direct FA (PARTH) - Final Laboratory Results 07/14/19 09:33: Lactic Acid 0.9 07/14/19 10:44: POC Glucose 135 H 07/14/19 15:40: POC Glucose 93 07/14/19 21:39: POC Glucose 174 H 07/15/19 05:10: WBC 7.8, RBC 2.88 L, Hgb 9.0 L, Hct 26.6 L, MCV 92.4, MCH 31.3, MCHC 33.8, RDW Std Deviation 42.4, RDW Coeff of Tomy 12.7, Plt Count 116 L, MPV 9.8, Immature Gran % (Auto) 0.300, Neut % (Auto) 75.4 H, Lymph % (Auto) 14.3 L, [place] % (Auto) 9.2, Eos % (Auto) 0.4, Baso % (Auto) 0.4, Absolute Neuts (auto) 5.9, Absolute Lymphs (auto) 1.12, Nucleated RBC % 0 07/15/19 05:10: Sodium 135 L, Potassium 3.9, Chloride 95 L, Carbon Dioxide 28.0, BUN 49 H, Creatinine 7.72 H*, Estim Creat Clear Calc 11.08, Est GFR (MDRD) Af Amer 10 L, Est GFR (MDRD) Non-Af 8 L, BUN/Creatinine Ratio 6.3 L, Glucose 118 H, Calcium 7.5 L, Phosphorus 6.8 H, Albumin 2.8 L 07/15/19 06:49: POC Glucose 112 H Current Medications Acetaminophen (Tylenol) 1,000 mg PO Q6H PRN PRN PRN Reason: Pain Score 1-10 Last Admin: 07/15/19 02:32 Dose: 1,000 mg Documented by: Albuterol/Ipratropium (Duoneb) 3 ml INHALATION Q4HWA.RT [facility] Last Admin: 07/15/19 06:57 Dose: 3 ml Documented by: Amlodipine Besylate (Norvasc) 10 mg PO DAILY [facility] Last Admin: 07/14/19 09:37 Dose: 10 mg Documented by: Aspirin (Aspirin, Baby) 81 mg PO DAILY@0800 [facility] Last Admin: 07/15/19 09:17 Dose: 81 mg Documented by: Atenolol (Tenormin (Beta Silvana)) 100 mg PO DAILY [facility] Last Admin: 07/14/19 09:38 Dose: 100 mg Documented by: Atorvastatin Calcium (Lipitor) 20 mg PO QHS [facility] Last Admin: 07/14/19 21:40 Dose: 20 mg Documented by: Bupropion HCl (Wellbutrin Xl) 300 mg PO DAILY [facility] Last Admin: 07/14/19 09:38 Dose: 300 mg Documented by: Calcitriol (Rocaltrol) 0.5 mcg PO DAILY [facility] Last Admin: 07/14/19 09:38 Dose: 0.5 mcg Documented by: Calcium Acetate (Phoslo Gel Cap) 667 mg PO TIDCM [facility] Last Admin: 07/15/19 09:17 Dose: 667 mg Documented by: Dextrose (D50w Syringe) 0 gm IV X1 PRN; Protocol PRN Reason: Hypoglycemia Furosemide (Lasix) 80 mg PO BID@1000,1800 [facility] Last Admin: 07/14/19 17:07 Dose: 80 mg Documented by: Gabapentin (Neurontin) 300 mg PO TIDCM [facility] Last Admin: 07/15/19 09:18 Dose: 300 mg Documented by: Glucagon () 1 mg IM .X1 PRN PRN Reason: Hypoglycemia Hydralazine HCl (Apresoline) 25 mg PO TID [facility] Last Admin: 07/15/19 06:44 Dose: 25 mg Documented by: Azithromycin 500 mg/ Dextrose 255 mls @ 250 mls/hr IV Q24 [facility] Last Infusion: 07/14/19 10:47 Dose: Infused Documented by: Ceftriaxone Sodium (Rocephin) 1 gm in 50 mls @ 100 mls/hr IV Q12 [facility] Last Infusion: 07/14/19 23:40 Dose: Infused Documented by: Insulin Glargine (Lantus (Bkc)) 4 units SC QHS [facility] Last Admin: 07/14/19 21:49 Dose: 4 units Documented by: Insulin Human Lispro (Humalog Kwikpen (Bk)) 0 unit SC ACHS [facility]; Protocol Last Admin: 07/15/19 06:49 Dose: Not Given Documented by: Sodium Chloride () 10 - 40 ml IV UD PRN PRN Reason: SALINE FLUSH Last Admin: 07/14/19 23:10 Dose: 10 ml Documented by: Tamsulosin HCl (Flomax) 0.4 mg PO DAILY [facility] Last Admin: 07/14/19 09:38 Dose: 0.4 mg Documented by: STROKE Vital Signs/Narrative: Vital Signs Temp Pulse Resp BP Pulse Ox 07/15/19 09:14 98.7 F 85 18 126/75 H 95 07/15/19 06:57 88 20 H 97 07/15/19 06:50 98.7 F 79 20 H 141/86 H 95 07/15/19 06:44 79 141/86 H Medical Necessity - Tobacco Use Smoking Status: Never smoker Assessment/Plan All Active Problems (Last Updated 03/18/19 @ 15:11 by Mary Johnson) Dyspnea (Acute) Pulmonary edema (Acute) Problem with dialysis access (Acute) Anasarca associated with disorder of kidney (Acute) Retention, urine (Acute) Acute on chronic diastolic CHF (congestive heart failure) (Acute) Acute hypoxemic respiratory failure (Ruled-out) Hypoglycemia (Acute) Acute respiratory failure with hypoxia (Ruled-out) ILDA (acute kidney injury) (Ruled-out) Right leg pain (Resolved) Chronic ulcer of 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 (Resolved) Cellulitis and abscess of right leg (Resolved) Hypertensive emergency (Resolved) Hypokalemia (Resolved) 1. Sepsis due to community acquired pneumonia and rhinovirus infection SIRS criteria now 0/4 temperature peaked at 101F overnight, ut is down to 98.7F today still has no leucocytosis continue IV ceftriaxone and azithromycin respiratory panel was positive for rhinovirus infection; strep and legionella screen were negative. 2. Acute hypoxic respiratory failure due to fluid overload and community acquired pneumonia as well as rhinovirus infeciton requiring up to 4L of oyxgen; tachypnea is improving\ had dialysis yesterday; having another session of dialysis today titrate oxygten to maintain sats>90%; goal is to wean off oxygen to rooom air as tolerated continue breathing treatments 3. Fluid overload due to missed dialysis: As under 2. Also on IV Lasix 40 mg twice daily 4. 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 Nephrology on board On PhosLo and calcitriol 5. Type 2 diabetes mellitus: On Lantus 4 units nightly and insulin sliding scale. Accu-Cheks before meals at bedtime. 6. Hypertension: On hydralazine and atenolol as well as amlodipine 7. Hyperlipidemia: On statin 8. Anemia: Hb is 9 today, was 10.8 on admission; baseline is ~ 9-10. Likely due to anemia of chronic disease from ESRD;. To follow up on outpatient basis. Will check iron panel DVT prophylaxis: SCDs Code Visit Inpatient E&M: 09996 Subs Hosp L2
[2019-07-15 10:07] LABS: Ferritin 1160 ng/mL (26-388); Iron 21 ug/dL (65-175); Iron Binding Capacity,Total 269 ug/dL (250-450); PERCENT IRON SATURATION 7.8 % (15.0-55.0)
[2019-07-15] MEDS: Tamsulosin HCl 0.4 MG Capsule PO (14:13)
[2019-07-15] MEDS: Atenolol 100 MG Tablet PO (14:14)
[2019-07-15] MEDS: amLODIPine 10 MG Tablet PO (14:14)
[2019-07-15] MEDS: buPROPion (XL) 300 MG TABLET.XL PO (14:14)
[2019-07-15] MEDS: Calcitriol 0.25 MCG Capsule 0.5 MCG PO (14:14)
[2019-07-15] MEDS: Furosemide 80 MG Tablet PO ×2 (14:14→17:37)
[2019-07-15] MEDS: 0.9% Saline Lock 10 ML Syringe IV ×2 (14:16→22:40)
[2019-07-15] MEDS: Ceftriaxone 1 GM/50 ML BAG IV ×2 (14:20→22:31)
[2019-07-15 14:25] LABS: Bedside Glucose 96 mg/dL (70-110)
--- NOTE | 2019-07-15 14:47 | DIALYSIS ---
HD x4 hours completed, patient tolerated well, UF 3500mL, accessed via RFA AVF using 15G needles, worked well, critline ended profile A, needles pulled and stasis achieved after approx 7 mins each site
[2019-07-15] MEDS: Atorvastatin Calcium 20 MG Tablet PO (22:26)
[2019-07-16] VITALS (9 sets, daily range): BP systolic 136–163; BP diastolic 67–84; PULSE 81–91; RESP 17–18; TEMP 36.8–37.6; O2SAT 90–96
[2019-07-16 00:11] LABS: Bedside Glucose 119 mg/dL (70-110)
[2019-07-16] MEDS: Rizatriptan Benzoate 10 MG Tablet PO (00:58)
[2019-07-16] MEDS: hydrALAZINE 25 MG Tablet PO (04:52)
[2019-07-16 05:59] LABS: Absolute Lymphocyte Count 1.26 X10^3/uL (0.83-4.51); Absolute Neutrophil Count 3.6 X10^3/uL (2.0-7.7); Basophil# 0.02 X10^3/uL; Basophil% 0.4 % (0-1); Eosinophil# 0.01 X10^3/uL; Eosinophils% 0.2 % (0-5); Hematocrit 26.4 % (40-54); Hemoglobin 8.9 g/dL (13.0-16.5); Lymphocyte # 1.26 X10^3/ul (4.0); Mean Corp Hgb Conc 33.7 g/dL (32-36); Mean Corpuscular Hgb 31.4 pg (27.0-32.0); Mean Corpuscular Volume 93.3 fL (80-94); Mean Platelet Vol. 10.5 fl (6.2-12.0); Monocyte# 0.64 X10^3/uL; Monocyte% 11.7 % (0-10); NRBC Flagged by Analyzer 0 % (0-5); Neutrophil # 3.55 X10^3/uL (2.7-7.7); Neutrophil % 64.5 % (47-70); Platelet Count 113 K/mm3 (150-450); RBC Distribution Width CV 12.6 % (11.6-14.6); RBC Distribution Width SD 43.1 fl (35.1-43.9); Red Blood Count 2.83 M/mm3 (4.6-6.2); White Blood Count 5.5 K/mm3 (4.4-11.0)
[2019-07-16 06:21] LABS: Albumin, Serum 2.7 g/dL (3.2-5.0); BUN 42 mg/dL (7-18); BUN/Creat Ratio 6.7 RATIO (10-20); Chloride 96 mmol/L (98-107); Creatinine, Serum 6.28 mg/dL (0.70-1.30); EST Glomerular Filtration Rate 10 mL/min (>60); Est Glom Filt Rate - Afr Amer 12 mL/min (>60); Estimated Creatinine Clearance 13.61 ml/min; Glucose 141 mg/dL (74-106); Phosphorus 5.7 mg/dL (2.5-4.9); Sodium Level 135 mmol/L (136-145)
[2019-07-16 06:55] LABS: Bedside Glucose 124 mg/dL (70-110)
[2019-07-16] MEDS: Ipratropium/Albuterol Sulfate 3 ML AMPUL.NEB INHALATION ×2 (07:29→11:19)
[2019-07-16] MEDS: Calcium Acetate 667 MG Capsule PO ×2 (09:22→11:57)
[2019-07-16] MEDS: Gabapentin 300 MG Capsule PO ×2 (09:22→11:57)
[2019-07-16] MEDS: Aspirin 81 MG TAB.CHEW PO (09:22)
[2019-07-16] MEDS: Tamsulosin HCl 0.4 MG Capsule PO (09:23)
[2019-07-16] MEDS: amLODIPine 10 MG Tablet PO (09:23)
[2019-07-16] MEDS: Atenolol 100 MG Tablet PO (09:23)
[2019-07-16] MEDS: Calcitriol 0.25 MCG Capsule 0.5 MCG PO (09:23)
[2019-07-16] MEDS: buPROPion (XL) 300 MG TABLET.XL PO (09:23)
[2019-07-16] MEDS: Furosemide 80 MG Tablet PO (09:23)
--- NOTE | 2019-07-16 10:27 | DCINST_ITS ---
- Discharge Diagnoses Current Active Problems: Current Active and Chronic Problems (Last Updated 03/18/19 @ 15:11 by Mary Johnson) Dyspnea (Acute) Pulmonary edema (Acute) You will use the following diet at home:: Renal (restricted protein/sodium) Your food should be the consistency of: Regular Your liquids should be the consistency of: Regular/Thin Discharge Activity: Return to Normal Activity Weight Bearing Status: Weight bearing as tolerated Call your doctor if you observe: Fever of 101 or Higher, Shortness of breath, Dizziness, Fainting spells, Swelling in the ankles Instructions: Pulmonary Edema, Adult Self-Care for Colds and Flu Allergies/Adverse Reactions: Allergies No Known Allergies Allergy (Verified 03/18/19 15:08) Medications to take at Discharge Gabapentin [Neurontin] 300 mg PO TIDCM 07/15/13 Atorvastatin Calcium [Lipitor] 20 mg PO QHS 11/19/17 Atenolol [Tenormin (beta elizabeth)] 100 mg PO DAILY 11/28/17 tamsulosin 0.4 mg capsule 0.4 mg PO DAILY cap 01/20/18 insulin glargine (U-100) 100 unit/mL (3 mL) subcutaneous pen 4 - 6 unit SQ QHS ml 07/11/18 Calcitriol [Rocaltrol] 0.5 mcg PO DAILY 08/04/18 Aspirin [Aspirin, Baby] 81 mg PO DAILY@0800 08/21/18 Calcium Acetate [Phoslo Gel Cap] 667 mg PO TIDCM #90 cap 08/25/18 Furosemide [Lasix] 80 mg PO BID@1000,1800 #30 tab 08/25/18 Insulin Lispro [Humalog KwikPen] See Protocol SQ ACHS insuln.pen 08/25/18 Acetaminophen [Tylenol] 1,000 mg PO Q6H PRN PRN 08/26/18 Bupropion HCl [Bupropion Xl] 300 mg PO DAILY 08/26/18 Amlodipine [Norvasc] 10 mg PO DAILY #0 08/29/18 Hydralazine HCl 25 mg PO TID #90 tab 08/29/18 Primary Care Physician: Zaida Mcneil MD [Primary Care Provider] - Please follow up with your Primary Care Physician in: one week Test Results: Test results from this visit will be discussed in further detail at your follow- up appointment, if applicable. Please Follow Up With: Loida Montiel DO When: 1-2 weeks Proposed Discharge Date: 07/16/19
--- NOTE | 2019-07-16 10:31 | PCM.DC.SUM ---
Discharge Date and Diagnosis - Problem List Patient Problems: Active and Suspected Problems (Last Updated 03/18/19 @ 15:11 by Mary Johnson) Dyspnea (Acute) Pulmonary edema (Acute) Date of Admission: 07/13/19 Date of Discharge: 07/16/19 - Primary Discharge Diagnosis Active and Suspected Problems (Last Updated 03/18/19 @ 15:11 by Mary Johnson) Dyspnea (Acute) Pulmonary edema (Acute) URTI due to rhinovirus infection sepsis due to community acquired pneumonia - Secondary Discharge Diagnosis Chronic Problems (Last Updated 03/18/19 @ 15:11 by Mary Johnson) Atherosclerotic heart disease of [place] coronary artery without angina pectoris (Chronic) Per cath 06/26/11- LAD 10% ostial stenosis, 10% proximal, 20-30% distal stenosis, Ramus 10-20% mid stenosis, OM1 20-30% mid stenosis Essential hypertension (Chronic) Chronic renal failure, stage 5 (Chronic) Ectopic cardiac beats (Chronic) Anemia of chronic renal failure, stage 4 (severe) (Chronic) Chronic renal failure, stage 4 (severe) (Chronic) Is currently following with nephrology. Also following with urology. Is trying to follow his low protein diet and feels he is doing well with it. Obesity (BMI 30-39.9) (Chronic) Noncompliance (Chronic) Diabetic neuropathy (Chronic) Diabetic nephropathy (Chronic) Diabetic retinopathy (Chronic) HLD (hyperlipidemia) (Chronic) Blind left eye (Chronic) Diabetes mellitus type II, uncontrolled (Chronic) Dx : 1993 Discussed with patient need to check BG in pairs, learn carb counting and then we can determine I/C ratio for him at last visit. is doing well with his diet. He stopped his basalglar. He is willing to start again at lower dose and titrate back up. He will start at 10 units and increase by 2-3 units every 3 days if he is waking with higher BG than he went to bed with. I have also decrease his correction to 1-50 so that he is not going low after correction. I have given he an alternative correction scale to use if he needs less correction when he begins with higer dose of basaglar and finds his current correction may be too strong. On statin On asa Anxiety and depression (Chronic) GERD (gastroesophageal reflux disease) (Chronic) Chewing tobacco nicotine dependence (Chronic) History of acute myocardial infarction (Chronic) Hospital Course and Treatment Imaging Results: Diagnostic Data Chest X-Ray 07/13/19 22:10 IMPRESSION: Possible diffuse airspace disease in a patient with cardiomegaly suggests pulmonary edema and probable CHF. Additionally this could be nephrogenic pulmonary edema.. at 2233 Reported and signed by: Torres Kelly MD Electronically Signed: Torres Kelly MD at 22:32 EST Tel , Service support , Operations: None Procedures: None Summary of Care Provided: The patient is a 48 year old M with an extensive past medical history as listed. He was admitted to the ED on 07/16/2019 with a complaint of shortness of breath. He had associated cough and generalized malaise and so he was not able to go for his regular dialysis session. He also had associated low-grade fever so he decided to come into the ED. Chest x-ray done showed mild cardiomegaly and pulmonary edema consistent with fluid overload which is likely nephrogenic since he admits dialysis. He was admitted and managed for acute hypoxic respiratory failure due to fluid overload. Nephrology was consulted for dialysis. Patient was also found to meet SIRS criteria and was told that he may have community-acquired pneumonia as he had a cough and fever. He was started on IV ceftriaxone and azithromycin. Urine for strep and Legionella were negative and influenza screen was negative. Respiratory panel checked showed positive rhinovirus. Patient shortness of breath resolved with 2 sessions of dialysis in 2 days. He was successfully weaned off oxygen and on day of discharge, he was saturating at 94% on room air and 90% on room air with ambulation. He was given a script for PO doxycycline 100mg bid x 5 days to complete treatment for pneumonia. He remained stable and was discharged home on 07/16/2019. He is follow-up with his primary care doctor and green coffee blender. Patient seen and examined prior to discharge. He had no complaints and felt well. Shortness of breath had resolved. Review of systems otherwise negative. Labs and vitals reviewed. Home medication reviewed and reconciled. o/e: Vital Signs Height 5 ft 8 in Weight: 217 lb 6.012 oz Weight in Pounds 217.4 lbs Pulse Ox [AMBULATING on Room 90 Air] Pulse Ox [At REST on Room Air] 94 Pulse Ox 90 Temperature 98.2 F Pulse Rate 86 Respiratory Rate 18 Blood Pressure [BP] 143/79 Blood Pressure 163/84 Blood Pressure Position [BP] Semi-Fowlers Blood Pressure Position Semi-Fowlers [] General: Alert, Oriented x3, Cooperative, No apparent distress HEENT: Atraumatic, PERRLA, EOMI, Normocephalic Oral: Moist Mucosa Neck: Supple, No JVD, Negative Carotid Bruits Lungs: Clear to auscultation, Normal air movement, No rhonchi, No wheeze, No rales; on 2L of oxygen; was successfully weaned off Cardiovascular: Regular rate, Regular Rhythm, Normal S1, Normal S2, No murmurs Abdomen: Bowel Sounds Present, Soft, Non Tender, Non-Distended, No Hepato-splenomegaly Extremities: No clubbing, No cyanosis, No edema, Capillary Refill Less than 3 Seconds Skin: No rashes, No breakdown Musculoskeletal: No Tenderness to Palpation of Joints or Extremities; AV fistula with good thrill in LUE Lymphatic: No Cervical, Supraclavicular, or Inguinal Adenopathy Neurological: Cranial nerves II-XII grossly intact, Neuro grossly intact, Motor Exam 5/5 strength throughout Psych/Mental Status: Normal Affect, Appropriate, Alert and oriented to time, place, person, mood and affect Plan as above. Patient Problems: Active and Suspected Problems (Last Updated 03/18/19 @ 15:11 by Mary Johnson) Dyspnea (Acute) Pulmonary edema (Acute) - Physical Exam Vitals/I&O's: Vital Signs Temp Pulse Resp BP Pulse Ox 98.2 F 86 17 163/84 H 94 07/16/19 08:40 07/16/19 08:40 07/16/19 08:40 07/16/19 08:40 07/16/19 09:41 Oxygen Flow Rate (L/min) 2 Oxygen Delivery Method Nasal Cannula Weight: 217 lb 6.012 oz Body Mass Index (BMI) 33.0 Finger Stick Blood Glucose 149 Intake and Output for Last 24 Hours 07/14/19 07/15/19 07/16/19 23:59 23:59 23:59 Intake Total 1605 / 1905 1355.25 / 1505.25 269.75 / 269.75 Output Total 3875 / 3875 7000 / 7000 Balance -2270 / -1970 -5644.75 / -5494.75 269.75 / 269.75 Microbiology Past 72 Hours 07/13/19 21:07 Mucosa - Throat Group A Streptococcus Rapid Screen - Final 07/14/19 07:54 Mucosa - Nasopharyngeal Respiratory Panel (PCR) - Final Rhinovirus 07/14/19 09:29 Urine, Clean Catch Streptococcus pneumoniae Antigen (M - Final 07/14/19 09:29 Urine, Clean Catch Legionella Antigen - Final 07/13/19 22:00 Mucosa - Nose Influenza Types A,B Direct FA (PARTH) - Final Laboratory Results 07/15/19 14:11: POC Glucose 96 07/15/19 22:43: POC Glucose 119 H 07/16/19 05:30: WBC 5.5, RBC 2.83 L, Hgb 8.9 L, Hct 26.4 L, MCV 93.3, MCH 31.4, MCHC 33.7, RDW Std Deviation 43.1, RDW Coeff of Tomy 12.6, Plt Count 113 L, MPV 10.5, Immature Gran % (Auto) 0.200, Neut % (Auto) 64.5, Lymph % (Auto) 23.0, [place]ountain % (Auto) 11.7 H, Eos % (Auto) 0.2, Baso % (Auto) 0.4, Absolute Neuts (auto) 3.6, Absolute Lymphs (auto) 1.26, Nucleated RBC % 0 07/16/19 05:30: Sodium 135 L, Potassium 4.0, Chloride 96 L, Carbon Dioxide 28.0, BUN 42 H, Creatinine 6.28 H, Estim Creat Clear Calc 13.61, Est GFR (MDRD) Af Amer 12 L, Est GFR (MDRD) Non-Af 10 L, BUN/Creatinine Ratio 6.7 L, Glucose 141 H, Calcium 8.0 L, Phosphorus 5.7 H, Albumin 2.7 L 07/16/19 06:53: POC Glucose 124 H Diagnostic Data Chest X-Ray 07/13/19 22:10 IMPRESSION: Possible diffuse airspace disease in a patient with cardiomegaly suggests pulmonary edema and probable CHF. Additionally this could be nephrogenic pulmonary edema.. at 2233 Reported and signed by: Torres Kelly MD Electronically Signed: Torres Kelly MD at 22:32 EST Tel , Service support , Current Medications Acetaminophen (Tylenol) 1,000 mg PO Q6H PRN PRN PRN Reason: Pain Score 1-1010 Last Admin: 07/15/19 22:26 Dose: 1,000 mg Documented by: Albuterol/Ipratropium (Duoneb) 3 ml INHALATION Q4HWA.RT [facility] Last Admin: 07/16/19 07:29 Dose: 3 ml Documented by: Amlodipine Besylate (Norvasc) 10 mg PO DAILY [facility] Last Admin: 07/16/19 09:23 Dose: 10 mg Documented by: Aspirin (Aspirin, Baby) 81 mg PO DAILY@0800 [facility] Last Admin: 07/16/19 09:22 Dose: 81 mg Documented by: Atenolol (Tenormin (Beta Silvana)) 100 mg PO DAILY [facility] Last Admin: 07/16/19 09:23 Dose: 100 mg Documented by: Atorvastatin Calcium (Lipitor) 20 mg PO QHS [facility] Last Admin: 07/15/19 22:26 Dose: 20 mg Documented by: Bupropion HCl (Wellbutrin Xl) 300 mg PO DAILY [facility] Last Admin: 07/16/19 09:23 Dose: 300 mg Documented by: Calcium Acetate (Phoslo Gel Cap) 667 mg PO TIDCM [facility] Last Admin: 07/16/19 09:22 Dose: 667 mg Documented by: Dextrose (D50w Syringe) 0 gm IV X1 PRN; Protocol PRN Reason: Hypoglycemia Furosemide (Lasix) 80 mg PO BID@1000,1800 [facility] Last Admin: 07/16/19 09:23 Dose: 80 mg Documented by: Gabapentin (Neurontin) 300 mg PO TIDCM [facility] Last Admin: 07/16/19 09:22 Dose: 300 mg Documented by: Glucagon () 1 mg IM .X1 PRN PRN Reason: Hypoglycemia Hydralazine HCl (Apresoline) 25 mg PO TID [facility] Last Admin: 07/16/19 04:52 Dose: 25 mg Documented by: Azithromycin 500 mg/ Dextrose 255 mls @ 250 mls/hr IV Q24 [facility] Last Infusion: 07/15/19 16:02 Dose: Infused Documented by: Ceftriaxone Sodium (Rocephin) 1 gm in 50 mls @ 100 mls/hr IV Q12 [facility] Last Infusion: 07/15/19 23:01 Dose: Infused Documented by: Sodium Chloride () 250 mls @ 15 mls/hr IV .[id number] PRN PRN Reason: Saline Flush Last Infusion: 07/16/19 00:20 Dose: 0 mls/hr Documented by: Insulin Glargine (Lantus ([facility])) 4 units SC QHS [facility] Last Admin: 07/15/19 22:44 Dose: 4 units Documented by: Insulin Human Lispro (Humalog Kwikpen ([facility])) 0 unit SC ACHS [facility]; Protocol Last Admin: 07/16/19 06:53 Dose: Not Given Documented by: Sodium Chloride () 10 - 40 ml IV UD PRN PRN Reason: SALINE FLUSH Last Admin: 07/15/19 22:40 Dose: 20 ml Documented by: Sodium Chloride () 10 - 40 ml IV UD PRN PRN Reason: SALINE FLUSH Tamsulosin HCl (Flomax) 0.4 mg PO DAILY [facility] Last Admin: 07/16/19 09:23 Dose: 0.4 mg Documented by: Discharge Diet: Renal Diet Discharge Activity: Return to Normal Activity Weight Bearing Status: Weight bearing as tolerated Call your doctor if you observe: Fever of 101 or Higher, Shortness of breath, Dizziness, Fainting spells, Swelling in the ankles Home Medications: Medications to take at Discharge Gabapentin [Neurontin] 300 mg PO TIDCM 07/15/13 Atorvastatin Calcium [Lipitor] 20 mg PO QHS 11/19/17 Atenolol [Tenormin (beta silvana)] 100 mg PO DAILY 11/28/17 tamsulosin 0.4 mg capsule 0.4 mg PO DAILY cap 01/20/18 insulin glargine (U-100) 100 unit/mL (3 mL) subcutaneous pen 4 - 6 unit SQ QHS ml 07/11/18 Calcitriol [Rocaltrol] 0.5 mcg PO DAILY 08/04/18 Aspirin [Aspirin, Baby] 81 mg PO DAILY@0800 08/21/18 Calcium Acetate [Phoslo Gel Cap] 667 mg PO TIDCM #90 cap 08/25/18 Furosemide [Lasix] 80 mg PO BID@1000,1800 #30 tab 08/25/18 Insulin Lispro [Humalog KwikPen] See Protocol SQ ACHS insuln.pen 08/25/18 Acetaminophen [Tylenol] 1,000 mg PO Q6H PRN PRN 08/26/18 Bupropion HCl [Bupropion Xl] 300 mg PO DAILY 08/26/18 Amlodipine [Norvasc] 10 mg PO DAILY #0 08/29/18 Hydralazine HCl 25 mg PO TID #90 tab 08/29/18 Doxycycline 100 mg PO BID #10 cap 07/16/19 Primary Care Physician: Zaida Mcneil MD [Primary Care Provider] - Please follow up with your Primary Care Physician in: one week Please Follow Up With: Loida Montiel DO When: 1-2 weeks Patient Instructions: Pulmonary Edema, Adult Self-Care for Colds and Flu Disposition: Home Minutes spent on discharge:: 35 Patient Condition:: Stable Medical Necessity - Tobacco Use Smoking Status: Never smoker Meaningful Use Info Meaningful Use Diagnoses (Choose all that apply): None applicable Code Visit Inpatient E&M: 91973 Disch Hosp
[2019-07-16] MEDS: Ceftriaxone 1 GM/50 ML BAG IV (10:40)
[2019-07-16] MEDS: Insulin Lispro 100 UNIT/ML INSULN.PEN SC (11:57)
[2019-07-17 00:21] LABS: Bedside Glucose 188 mg/dL (70-110)
--- NOTE | 2019-07-17 15:21 | CASEMGMT ---
ANDER GUERRA Discharge Follow-Up Phone Call. Lace: 10 Strata: 3 Discharge Date: 07/16/19 Adm Dx: PE, Renal Failure Attempted discharge follow-up phone call. No answer. Message left for pt to return call to MS3 Izzy WORTHINGTON CM, if he has any questions about the discharge instructions, medications, or follow-up appts. Phone number provided. Apoorva BERNARDO RN, CM
== END 2019-07-16 13:01 | disposition home or self-care (01) | DRG 871 ==
LOC: ED 23:21 → MS3 23:55
PROVIDERS: Admitting Provider Family Medicine; Emergency Provider Emergency Medicine; Family Provider Internal Medicine; PCP Internal Medicine; Visit Provider Student in an Organized Health Care Education/Training Program
DX: A41.9 Sepsis, unspecified organism (principal); N18.6 End stage renal disease; J96.01 Acute respiratory failure with hypoxia; J18.9 Pneumonia, unspecified organism; J06.9 Acute upper respiratory infection, unspecified; B97.89 Other viral agents as the cause of diseases classified elsewhere; E87.70 Fluid overload, unspecified; E11.22 Type 2 diabetes mellitus with diabetic chronic kidney disease; I10 Essential (primary) hypertension; E78.5 Hyperlipidemia, unspecified; Z99.2 Dependence on renal dialysis; I25.10 Atherosclerotic heart disease of native coronary artery without angina pectoris; D63.1 Anemia in chronic kidney disease; E11.40 Type 2 diabetes mellitus with diabetic neuropathy, unspecified; E11.319 Type 2 diabetes mellitus with unspecified diabetic retinopathy without macular edema; E66.9 Obesity, unspecified; Z68.33 Body mass index [BMI] 33.0-33.9, adult; Z79.4 Long term (current) use of insulin; H54.62 Unqualified visual loss, left eye, normal vision right eye; I25.2 Old myocardial infarction; K21.9 Gastro-esophageal reflux disease without esophagitis; F32.9 Major depressive disorder, single episode, unspecified; F41.9 Anxiety disorder, unspecified; F17.220 Nicotine dependence, chewing tobacco, uncomplicated
CPT/HCPCS: 36415; 71046; 80048; 80069; 82728; 82962; 83540; 83550; 83605; 85025; 87040; 87449; 87633; 87804; 87880; 90937; 90947; 94640; 97803; 99285; J1756; J7030; J7050; A4216; G0257; J1940

== ENCOUNTER 2019-10-01 19:51 | Emergency (ER) | payer MEDICARE, SELFPAY ==
[2019-10-01 19:52] VITALS: BP 162/80; PULSE 87; RESP 18; TEMP 36.8; O2SAT 100; BMI 30.4
--- NOTE | 2019-10-01 20:26 | ED.DCSUM_ITS ---
- ER Visit Summary Date of Service: 10/01/19 Chief Complaint: [Blisters to toes ] History of Present Illness: The patient is a 48 M [presents with blisters to his toes that he noticed this evening when he got out of shower. Patient denies any trauma. Patient denies any cold exposure. He is wearing his same tennis shoes that he normally wears. Patient denies any fevers or illness other than he has had some vomiting and diarrhea today. Patient has history of diabetes and chronic kidney disease.] Physical Examination: [HEENT-PERRLA, EOMI. Cranial nerves II through XII grossly intact. TMs clear. Mucous membranes moist. No adenopathy. Cardiovascular-regular rate and rhythm without murmur or ectopy Lungs-clear to auscultation, chest wall stable without crepitus or subcu emphysema Abdomen-normoactive bowel sounds, soft, nontender, no rebound or rigidity, no peritoneal signs. Extremities-intact ?4, normal range of motion, normal pulses. Left foot-patient has blisters to the second through the fifth toes. The blisters on the second and third toes have been the removed. He has active large blisters on the second toe and fifth toe that have clear fluid in them without evidence of infection. No lymphangitic streaking. No erythema or drainage. There is no deformity to the toes. 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 Patient will be covered with Keflex.] Disposition: [Discharged home in stable condition] Impression: [BListers to left foot] This note was generated with [facility] dictation software. It may contain incorrect words, spelling, and punctuation that were not noted in review of the chart leonid or to signing ED Disposition - Plan for ED Patient: Referrals: Zaida Mcneil MD [Primary Care Provider] -
--- NOTE | 2019-10-01 20:29 | DCINST.ED_ITS ---
ED Disposition - Plan for ED Patient: Instructions: Blister Prescriptions: Cephalexin [Keflex] 500 mg PO Q6 #40 cap Transmission Status: Pending to [id number] Referrals: Zaida Mcneil MD [Primary Care Provider] - Carolina Pizano DPM [STAFF PHYSICIAN] - 3-5 Days
[2019-10-01 21:04] VITALS: RESP 16
== END 2019-10-01 21:05 | disposition home or self-care (01) ==
LOC: ED 20:25
PROVIDERS: Emergency Provider Emergency Medicine; PCP Internal Medicine
DX: S90.822A Blister (nonthermal), left foot, initial encounter (principal); I12.9 Hypertensive chronic kidney disease with stage 1 through stage 4 chronic kidney disease, or unspecified chronic kidney disease; E11.22 Type 2 diabetes mellitus with diabetic chronic kidney disease; N18.9 Chronic kidney disease, unspecified; E78.00 Pure hypercholesterolemia, unspecified
CPT/HCPCS: 99282

== ENCOUNTER 2019-10-06 11:39 | Inpatient (IN) | payer MEDICARE, MEDICAID, SELFPAY ==
[2019-10-06 10:11] VITALS: BP 144/76; PULSE 83; RESP 16; TEMP 37; O2SAT 95
[2019-10-06 10:20] VITALS: BMI 32.3
[2019-10-06 10:32] VITALS: BMI 32.4
--- NOTE | 2019-10-06 11:44 | ART_ITS ---
Reason For Study: ulcer Procedure A bilateral lower extremity continuous wave Doppler with analog waveform analysis,segmental pressures,and ankle brachial indexes without exercise. 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 Left Segmental Pressures Left brachial= 147mmHg. Left dorsalis pedis artery = 190mmHg. Left digit = 133 mmHg. The left dorsalis pedis waveforms are triphasic. The left posterior tibial artery waveforms are triphasic. INFORMATION TECHNOLOGY PROJECT MANAGER is noncompressible. Right Segmental Pressures Right digit = 174 mmHg. The right dorsalis pedis waveforms are triphasic. The right posterior tibial artery waveforms are triphasic. INFORMATION TECHNOLOGY PROJECT MANAGER and DPA are noncompressible. Indices The right digital-brachial index is 1.18. INFORMATION TECHNOLOGY PROJECT MANAGER and DPA are noncompressible. The left ankle brachial index by the dorsalis pedis is 1.29. The left digital-brachial index is .9. INFORMATION TECHNOLOGY PROJECT MANAGER is noncompressible. Interpretation Summary 1. right ankle noncompresible but normal triphasic flow and peaked waveforms consistent with medial calcinosis. 2. Left with RANJAN 1.29 of DP and PT noncompresible but normal triphasic flow and peaked waveforms consistent with medial calcinosis. 3. Normal DBI 1.18 and 0.9. Ordering Physician: Carolina Pizano Performed By: RYLIE WELLS [place]
[2019-10-06 11:45] VITALS: BP 155/66; PULSE 84; RESP 18; TEMP 37.3; O2SAT 96
--- NOTE | 2019-10-06 11:54 | PCM.HP.STD ---
Problem List (1) Cellulitis of left lower limb Status: Acute (2) Other specified peripheral vascular diseases Status: Chronic (3) 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 exposed Status: Acute (4) Type 2 diabetes mellitus with diabetic polyneuropathy Status: Chronic History of Present Illness Date of Admission: 10/06/19 Chief Complaint: Left foot redness and wound The patient is a 48 year old M with multiple comorbidities [facility] earlier today with concern of a left foot infection. He relates the onset of his blistering and color change was last September. His was helping him get dressed when he got out of the shower, and noticed he had some blistering. He then presented to the emergency room in which the blisters were deroofed and he was started on oral antibiotic Keflex. He denies improvement in his concerned of the continued redness that is now streaking to the front of the ankle and the odor. He denies any known trauma or burn. He admits he does not have a lot of feeling due to his diabetic neuropathy and he is also unable to see his foot. Past Medical History Past Medical History (Chronic Problems): Chronic Problems (Last Updated 10/06/19 @ 12:23 by Carolina Pizano DPM) Ectopic cardiac beats (Chronic) Chronic renal failure, stage 5 (Chronic) Other specified peripheral vascular diseases (Chronic) Type 2 diabetes mellitus with diabetic polyneuropathy (Chronic) Atherosclerotic heart disease of [place] coronary artery without angina pectoris (Chronic) Per cath 06/26/11- LAD 10% ostial stenosis, 10% proximal, 20-30% distal stenosis, Ramus 10-20% mid stenosis, OM1 20-30% mid stenosis Essential hypertension (Chronic) Anemia of chronic renal failure, stage 4 (severe) (Chronic) Chronic renal failure, stage 4 (severe) (Chronic) Is currently following with nephrology. Also following with urology. Is trying to follow his low protein diet and feels he is doing well with it. Obesity (BMI 30-39.9) (Chronic) Noncompliance (Chronic) Diabetic neuropathy (Chronic) Diabetic nephropathy (Chronic) Diabetic retinopathy (Chronic) HLD (hyperlipidemia) (Chronic) Blind left eye (Chronic) Diabetes mellitus type II, uncontrolled (Chronic) Dx : 1990 Discussed with patient need to check BG in pairs, learn carb counting and then we can determine I/C ratio for him at last visit. is doing well with his diet. He stopped his basalglar. He is willing to start again at lower dose and titrate back up. He will start at 10 units and increase by 2-3 units every 3 days if he is waking with higher BG than he went to bed with. I have also decrease his correction to 1-50 so that he is not going low after correction. I have given he an alternative correction scale to use if he needs less correction when he begins with higer dose of basaglar and finds his current correction may be too strong. On statin On asa Anxiety and depression (Chronic) GERD (gastroesophageal reflux disease) (Chronic) Chewing tobacco nicotine dependence (Chronic) History of acute myocardial infarction (Chronic) Medical History: Medical History (Last Updated 10/06/19 @ 12:23 by Carolina Pizano DPM) Atherosclerotic heart disease of [place] coronary artery without angina pectoris (Chronic) I25.10 Per cath 06/26/11- LAD 10% ostial stenosis, 10% proximal, 20-30% distal stenosis, Ramus 10-20% mid stenosis, OM1 20-30% mid stenosis Essential hypertension (Chronic) I10 Problem with dialysis access (Acute) T82.898A Anasarca associated with disorder of kidney (Acute) N04.9 Anemia of chronic renal failure, stage 4 (severe) (Chronic) N18.4, D63.1 Autonomic neuropathy (Suspected) G90.9 Chronic renal failure, stage 4 (severe) (Chronic) N18.4 Is currently following with nephrology. Also following with urology. Is trying to follow his low protein diet and feels he is doing well with it. Retention, urine (Acute) R33.9 Acute on chronic diastolic CHF (congestive heart failure) (Acute) I50.33 Acute hypoxemic respiratory failure (Ruled-out) J96.01 Hypoglycemia (Acute) E16.2 resolved in ED Acute respiratory failure with hypoxia (Ruled-out) J96.01 Obesity (BMI 30-39.9) (Chronic) E66.9 Noncompliance (Chronic) Z91.19 Diabetic neuropathy (Chronic) E11.40 Diabetic nephropathy (Chronic) E11.21 Diabetic retinopathy (Chronic) E11.319 HLD (hyperlipidemia) (Chronic) E78.5 Blind left eye (Chronic) H54.40 Diabetes mellitus type II, uncontrolled (Chronic) E11.65 Dx : 1990 Discussed with patient need to check BG in pairs, learn carb counting and then we can determine I/C ratio for him at last visit. is doing well with his diet. He stopped his basalglar. He is willing to start again at lower dose and titrate back up. He will start at 10 units and increase by 2-3 units every 3 days if he is waking with higher BG than he went to bed with. I have also decrease his correction to 1-50 so that he is not going low after correction. I have given he an alternative correction scale to use if he needs less correction when he begins with higer dose of basaglar and finds his current correction may be too strong. On statin On asa Anxiety and depression (Chronic) F41.9, F32.9 GERD (gastroesophageal reflux disease) (Chronic) K21.9 Chewing tobacco nicotine dependence (Chronic) F17.220 ILDA (acute kidney injury) (Ruled-out) N17.9 Right leg pain (Resolved) M79.604 Chronic ulcer of 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 (Resolved) L97.912 Cellulitis and abscess of right leg (Resolved) L03.115, L02.415 History of acute myocardial infarction (Chronic) I25.2 Type 2 diabetes mellitus with diabetic polyneuropathy E11.42 Kidney failure N19 Kidney stones N20.0 Pneumonia J18.9 Vision problems H54.7 Fistula Onset Date: ~12/2018 L98.8 Rt UE History of left heart catheterization (LHC) Onset Date: ~06/26/11 Z98.890 Per cath 06/26/11- LAD 10% ostial stenosis, 10% proximal, 20-30% distal stenosis, Ramus 10-20% mid stenosis, OM1 20-30% mid stenosis Hypertensive emergency (Resolved) I16.1 Hypokalemia (Resolved) E87.6 Allergies No Known Allergies Allergy (Verified 10/01/19 19:58) Home Medications: Ambulatory Orders Medication Instructions Recorded Gabapentin [Neurontin] 300 mg PO TIDCM 07/15/13 Atorvastatin Calcium [Lipitor] 20 mg PO QHS 11/19/17 Atenolol [Tenormin (beta elizabeth)] 100 mg PO DAILY 11/28/17 tamsulosin 0.4 mg capsule 0.4 mg PO DAILY cap 01/20/18 insulin glargine 100 unit/mL (3 2 unit SQ QHS ml 07/11/18 mL) subcutaneous pen Calcitriol [Rocaltrol] 0.5 mcg PO DAILY 08/04/18 Aspirin [Aspirin, Baby] 81 mg PO DAILY@0800 08/21/18 Calcium Acetate [Phoslo Gel Cap] 667 mg PO TIDCM #90 cap 08/25/18 Acetaminophen [Tylenol] 1,000 mg PO Q6H PRN PRN 08/26/18 Bupropion HCl [Bupropion Xl] 300 mg PO DAILY 08/26/18 Amlodipine [Norvasc] 10 mg PO DAILY #0 08/29/18 Cephalexin [Keflex] 500 mg PO Q6 10/06/19 Furosemide [Lasix] 80 mg PO BID@1000,1800 10/06/19 Hydralazine HCl 25 mg PO TID 10/06/19 Insulin Lispro [Humalog KwikPen] See Protocol SQ ACHS 10/06/19 Surgical History: Surgical History (Last Reviewed 03/18/19 @ 15:10 by Mary Johnson) History of appendectomy Z90.49 History of arteriovenostomy for renal dialysis Onset Date: ~08/2018 Z99.2 Status post insertion of dialysis catheter Onset Date: ~08/2018 Z95.828, Z99.2 History of eye surgery Z98.890 Lt retinal tear History of cholecystectomy Z90.49 Surgical History: appendectomy, cholecystectomy, - - AVF rt forearm 08/08/18, eye surgery Psychiatric History: Anxiety, Depression Lives: Spouse/ Significant Other, With Family Smoking Status: Never smoker Tobacco Use: Chew Alcohol: None Drugs: None - *Family History Maternal Family History: Family History (Last Reviewed 03/18/19 @ 15:10 by Mary Johnson) Mother Heart disease Hypertension Father Cancer Brother Cancer Diabetes Sister Diabetes History Items: Heart Disease Paternal Family History: Family History (Last Reviewed 03/18/19 @ 15:10 by Mary Johnson) Mother Heart disease Hypertension Father Cancer Brother Cancer Diabetes Sister Diabetes History Items: Cancer - Father w/ Colon CA. Sibling Family History: Family History (Last Reviewed 03/18/19 @ 15:10 by Mary Johnson) Mother Heart disease Hypertension Father Cancer Brother Cancer Diabetes Sister Diabetes History Items: Diabetes - sister, brother who passed, no kidney disease Review of Systems Constitutional: Reports: Fatigue. Denies: Chills, Fever Eyes: Reports: Vision Change HEENT: Denies: Sore Throat Cardiovascular: Reports: Chest Pain, Edema Respiratory: Denies: Shortness of Breath Gastrointestinal: Reports: Nausea, Vomiting Musculoskeletal: Reports: Foot Pain, Leg Pain, Muscle pain Skin: Denies: Skin Changes, Wounds Neurological: Reports: Balance problems, Numbness, Tingling VTE Information - Inpt Only VTE Present on Admission: No VTE Mechan Device Prophylaxis: SCD's VTE Pharm Prophylaxis ordered?: Yes Patient Problems: Active and Suspected Problems (Last Updated 10/06/19 @ 12:23 by Carolina Pizano DPM) Cellulitis of left lower limb (Acute) 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 exposed (Acute) - Physical Exam Vitals/I&O's: Vital Signs Temp Pulse Resp BP Pulse Ox 99.1 F 84 18 155/66 H 96 10/06/19 11:45 10/06/19 11:45 10/06/19 11:45 10/06/19 11:45 10/06/19 11:45 Oxygen Delivery Method Room Air Weight: 96.6 kg Body Mass Index (BMI) 32.3 Finger Stick Blood Glucose 149 General: Alert, Oriented x3, Cooperative, No apparent distress HEENT: Atraumatic, EOMI Oral: Moist Mucosa Extremities: No cyanosis, Capillary Refill Less than 3 Seconds - All digits right foot and hallux left foot. He has blisters to the digits 2, 3, 4, 5 of the left foot with some delayed refill these do not have increased warmth or are they cool to touch, Diminished Peripheral Pulses, Edema - Bilateral lower extremities Skin: Ulcer/ Wound - There are deroofed blisters noted to digits 2, 3, 4, 5 of the left foot that extends onto the forefoot with adjacent erythema that has streaking to the anterior ankle (marked with pen). There is no bogginess or fluctuance on palpation. There is an odor upon further debridement of the blisters. There is no webspace skin discontinuity or maceration. The underlying skin after de-murtaza part of the blisters are fibrous, sub-hemorrhagic, and sparse granulation tissue. There is no kaelyn necrosis or deep tissue exposure visualized. His adjacent skin is hairless and atrophic Musculoskeletal: No Tenderness to Palpation of Joints or Extremities, Muscle Wasting, - - He is neuropathic and did not have any pain on palpation. The compartments of the left foot and ankle and leg remain soft to palpate. Active range of motion digits noted and also the ankle Neurological: - - Lack of epicritic sensation light touch is consistent with his neuropathy status Psych/Mental Status: Normal Affect, Appropriate Current Medications Sodium Chloride () 250 mls @ 15 mls/hr IV .[id number] PRN PRN Reason: Saline Flush Sodium Chloride () 250 mls @ 15 mls/hr IV .[id number] PRN PRN Reason: Additional IVPB Infusion Sodium Chloride () 10 - 40 ml IV UD PRN PRN Reason: SALINE FLUSH Assessment/Plan All Active Problems (Last Updated 10/06/19 @ 12:23 by Carolina Pizano DPM) Dyspnea (Acute) Pulmonary edema (Acute) Cellulitis of left lower limb (Acute) 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 exposed (Acute) Problem with dialysis access (Acute) Anasarca associated with disorder of kidney (Acute) Retention, urine (Acute) Acute on chronic diastolic CHF (congestive heart failure) (Acute) Acute hypoxemic respiratory failure (Ruled-out) Hypoglycemia (Acute) Acute respiratory failure with hypoxia (Ruled-out) ILDA (acute kidney injury) (Ruled-out) Right leg pain (Resolved) Chronic ulcer of 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 (Resolved) Cellulitis and abscess of right leg (Resolved) Hypertensive emergency (Resolved) Hypokalemia (Resolved) Left foot wound/blisters with cellulitis infection Diabetes with neuropathy Peripheral vascular disease suspected Chronic kidney disease on hemodialysis Other comorbidities include hypertension, depression, GERD, hyperlipidemia, vision impairment, obesity I reviewed and discussed his case. He was [facility]. X-rays were obtained in the outpatient setting in which there was no soft tissue emphysema, foreign body, fracture dislocation or Charcot noted. There was pronounced small vessel calcification. It is noted he was taking Keflex in outpatient setting and he has not appropriately responded. I recommended hospital admission for IV antibiotics and further work-up. Labs ordered including CBC, CMP, ESR, and C-reactive protein. A wound culture was obtained and was sent for aerobic, anaerobic, and MRSA PCR in which this is pending. Blood cultures were also ordered. Infectious disease was asked in consultation and antibiotic recommendations will be greatly appreciated. If he has lack of improvement with antibiotics, advanced imaging and surgery will be considered. Due to his vessel calcification and some clinical signs of vascular disease, I recommend an updated noninvasive vascular study. This was ordered and a vascular consultation will be considered pending these results. He denies seeing a prior vascular specialist. He reports having noninvasive vascular study performed at the [facility] however does not recall the timeframe which this was performed. His foot was cleansed with saline and Hibiclens and a new dressing consisting of Betadine soaked gauze was applied. He surgical shoe was also dispensed and he was advised to maintain a heel weightbearing status with assistive device. Medical hospitalist was also asked to be on consultation for medical management. It is noted he does have a chronic history of diabetes and chronic kidney disease in which he is on hemodialysis. He will need to be on hemodialysis during this admission as well. Input and management are greatly appreciated. The case details were communicated with Dr. Jara. Please do not hesitate to call if you have any questions. Carolina Pizano DPM, [facility] [phone] code status confirmed: full
--- NOTE | 2019-10-06 12:12 | PCM.HP.STD ---
History of Present Illness The patient is a 48 year old M [] Past Medical History Past Medical History (Chronic Problems): Chronic Problems (Last Updated 03/18/19 @ 15:11 by Mary Johnson) Other specified peripheral vascular diseases (Chronic) Type 2 diabetes mellitus with diabetic polyneuropathy (Chronic) Atherosclerotic heart disease of [place] coronary artery without angina pectoris (Chronic) Per cath 06/26/11- LAD 10% ostial stenosis, 10% proximal, 20-30% distal stenosis, Ramus 10-20% mid stenosis, OM1 20-30% mid stenosis Essential hypertension (Chronic) Chronic renal failure, stage 5 (Chronic) Ectopic cardiac beats (Chronic) Anemia of chronic renal failure, stage 4 (severe) (Chronic) Chronic renal failure, stage 4 (severe) (Chronic) Is currently following with nephrology. Also following with urology. Is trying to follow his low protein diet and feels he is doing well with it. Obesity (BMI 30-39.9) (Chronic) Noncompliance (Chronic) Diabetic neuropathy (Chronic) Diabetic nephropathy (Chronic) Diabetic retinopathy (Chronic) HLD (hyperlipidemia) (Chronic) Blind left eye (Chronic) Diabetes mellitus type II, uncontrolled (Chronic) Dx : 1990 Discussed with patient need to check BG in pairs, learn carb counting and then we can determine I/C ratio for him at last visit. is doing well with his diet. He stopped his basalglar. He is willing to start again at lower dose and titrate back up. He will start at 10 units and increase by 2-3 units every 3 days if he is waking with higher BG than he went to bed with. I have also decrease his correction to 1-50 so that he is not going low after correction. I have given he an alternative correction scale to use if he needs less correction when he begins with higer dose of basaglar and finds his current correction may be too strong. On statin On asa Anxiety and depression (Chronic) GERD (gastroesophageal reflux disease) (Chronic) Chewing tobacco nicotine dependence (Chronic) History of acute myocardial infarction (Chronic) Medical History: Medical History (Last Updated 03/18/19 @ 15:11 by Mary Johnson) Atherosclerotic heart disease of [place] coronary artery without angina pectoris (Chronic) I25.10 Per cath 06/26/11- LAD 10% ostial stenosis, 10% proximal, 20-30% distal stenosis, Ramus 10-20% mid stenosis, OM1 20-30% mid stenosis Essential hypertension (Chronic) I10 Problem with dialysis access (Acute) T82.898A Anasarca associated with disorder of kidney (Acute) N04.9 Anemia of chronic renal failure, stage 4 (severe) (Chronic) N18.4, D63.1 Autonomic neuropathy (Suspected) G90.9 Chronic renal failure, stage 4 (severe) (Chronic) N18.4 Is currently following with nephrology. Also following with urology. Is trying to follow his low protein diet and feels he is doing well with it. Retention, urine (Acute) R33.9 Acute on chronic diastolic CHF (congestive heart failure) (Acute) I50.33 Acute hypoxemic respiratory failure (Ruled-out) J96.01 Hypoglycemia (Acute) E16.2 resolved in ED Acute respiratory failure with hypoxia (Ruled-out) J96.01 Obesity (BMI 30-39.9) (Chronic) E66.9 Noncompliance (Chronic) Z91.19 Diabetic neuropathy (Chronic) E11.40 Diabetic nephropathy (Chronic) E11.21 Diabetic retinopathy (Chronic) E11.319 HLD (hyperlipidemia) (Chronic) E78.5 Blind left eye (Chronic) H54.40 Diabetes mellitus type II, uncontrolled (Chronic) E11.65 Dx : 1993 Discussed with patient need to check BG in pairs, learn carb counting and then we can determine I/C ratio for him at last visit. is doing well with his diet. He stopped his basalglar. He is willing to start again at lower dose and titrate back up. He will start at 10 units and increase by 2-3 units every 3 days if he is waking with higher BG than he went to bed with. I have also decrease his correction to 1-50 so that he is not going low after correction. I have given he an alternative correction scale to use if he needs less correction when he begins with higer dose of basaglar and finds his current correction may be too strong. On statin On asa Anxiety and depression (Chronic) F41.9, F32.9 GERD (gastroesophageal reflux disease) (Chronic) K21.9 Chewing tobacco nicotine dependence (Chronic) F17.220 ILDA (acute kidney injury) (Ruled-out) N17.9 Right leg pain (Resolved) M79.604 Chronic ulcer of 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 (Resolved) L97.912 Cellulitis and abscess of right leg (Resolved) L03.115, L02.415 History of acute myocardial infarction (Chronic) I25.2 Kidney failure N19 Kidney stones N20.0 Pneumonia J18.9 Vision problems H54.7 Fistula Onset Date: ~12/2018 L98.8 Rt UE History of left heart catheterization (LHC) Onset Date: ~06/26/11 Z98.890 Per cath 06/26/11- LAD 10% ostial stenosis, 10% proximal, 20-30% distal stenosis, Ramus 10-20% mid stenosis, OM1 20-30% mid stenosis Hypertensive emergency (Resolved) I16.1 Hypokalemia (Resolved) E87.6 Allergies No Known Allergies Allergy (Verified 10/01/19 19:58) Home Medications: Ambulatory Orders Medication Instructions Recorded Gabapentin [Neurontin] 300 mg PO TIDCM 07/15/13 Atorvastatin Calcium [Lipitor] 20 mg PO QHS 11/19/17 Atenolol [Tenormin (beta elizabeth)] 100 mg PO DAILY 11/28/17 tamsulosin 0.4 mg capsule 0.4 mg PO DAILY cap 01/20/18 insulin glargine 100 unit/mL (3 2 unit SQ QHS ml 07/11/18 mL) subcutaneous pen Calcitriol [Rocaltrol] 0.5 mcg PO DAILY 08/04/18 Aspirin [Aspirin, Baby] 81 mg PO DAILY@0800 08/21/18 Calcium Acetate [Phoslo Gel Cap] 667 mg PO TIDCM #90 cap 08/25/18 Acetaminophen [Tylenol] 1,000 mg PO Q6H PRN PRN 08/26/18 Bupropion HCl [Bupropion Xl] 300 mg PO DAILY 08/26/18 Amlodipine [Norvasc] 10 mg PO DAILY #0 08/29/18 Cephalexin [Keflex] 500 mg PO Q6 10/06/19 Furosemide [Lasix] 80 mg PO BID@1000,1800 10/06/19 Hydralazine HCl 25 mg PO TID 10/06/19 Insulin Lispro [Humalog KwikPen] See Protocol SQ ACHS 10/06/19 Surgical History: Surgical History (Last Reviewed 03/18/19 @ 15:10 by Mary Johnson) History of appendectomy Z90.49 History of arteriovenostomy for renal dialysis Onset Date: ~08/2018 Z99.2 Status post insertion of dialysis catheter Onset Date: ~08/2018 Z95.828, Z99.2 History of eye surgery Z98.890 Lt retinal tear History of cholecystectomy Z90.49 Surgical History: cholecystectomy, - - AVF rt forearm 08/08/18 Psychiatric History: Anxiety, Depression Smoking Status: Never smoker Tobacco Use: Chew - *Family History Maternal Family History: Family History (Last Reviewed 03/18/19 @ 15:10 by Mary Johnson) Mother Heart disease Hypertension Father Cancer Brother Cancer Diabetes Sister Diabetes History Items: Heart Disease Paternal Family History: Family History (Last Reviewed 03/18/19 @ 15:10 by Mary Johnson) Mother Heart disease Hypertension Father Cancer Brother Cancer Diabetes Sister Diabetes History Items: Cancer - Father w/ Colon CA. Sibling Family History: Family History (Last Reviewed 03/18/19 @ 15:10 by Mary Johnson) Mother Heart disease Hypertension Father Cancer Brother Cancer Diabetes Sister Diabetes History Items: Diabetes - sister, brother who passed, no kidney disease Patient Problems: Active and Suspected Problems (Last Updated 03/18/19 @ 15:11 by Mary Johnson) Cellulitis of left lower limb (Acute) 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 exposed (Acute) - Physical Exam Vitals/I&O's: Vital Signs Temp Pulse Resp BP Pulse Ox 99.1 F 84 18 155/66 H 96 10/06/19 11:45 10/06/19 11:45 10/06/19 11:45 10/06/19 11:45 10/06/19 11:45 Oxygen Delivery Method Room Air Weight: 96.6 kg Body Mass Index (BMI) 32.3 Finger Stick Blood Glucose 149 Current Medications Docusate Sodium (Colace) 200 mg PO BID PRN PRN PRN Reason: Constipation Glucagon () 1 mg IM .X1 PRN PRN Reason: Hypoglycemia Sodium Chloride () 250 mls @ 15 mls/hr IV .[id number] PRN PRN Reason: Saline Flush Sodium Chloride () 250 mls @ 15 mls/hr IV .[id number] PRN PRN Reason: Additional IVPB Infusion Dextrose (Dextrose 10%-Water) 250 mls @ 999 mls/hr IV .Q16M PRN; Protocol PRN Reason: HYPOGLYCEMIA Ondansetron HCl (Zofran) 4 mg IV Q8H PRN PRN PRN Reason: Nausea Sodium Chloride () 10 - 40 ml IV UD PRN PRN Reason: SALINE FLUSH Assessment/Plan All Active Problems (Last Updated 03/18/19 @ 15:11 by Mary Johnson) Dyspnea (Acute) Pulmonary edema (Acute) Cellulitis of left lower limb (Acute) 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 exposed (Acute) Problem with dialysis access (Acute) Anasarca associated with disorder of kidney (Acute) Retention, urine (Acute) Acute on chronic diastolic CHF (congestive heart failure) (Acute) Acute hypoxemic respiratory failure (Ruled-out) Hypoglycemia (Acute) Acute respiratory failure with hypoxia (Ruled-out) ILDA (acute kidney injury) (Ruled-out) Right leg pain (Resolved) Chronic ulcer of 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 (Resolved) Cellulitis and abscess of right leg (Resolved) Hypertensive emergency (Resolved) Hypokalemia (Resolved)
--- NOTE | 2019-10-06 12:17 | PCM.CONS.GEN ---
Problem List (1) 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 exposed Status: Acute (2) Cellulitis of left lower limb Status: Acute (3) Ectopic cardiac beats Status: Chronic (4) Chronic renal failure, stage 5 Status: Chronic (5) Dyspnea Status: Resolved (6) Pulmonary edema Status: Resolved (7) Other specified peripheral vascular diseases Status: Chronic (8) Type 2 diabetes mellitus with diabetic polyneuropathy Status: Chronic (9) Atherosclerotic heart disease of [place] coronary artery without angina pectoris Status: Chronic Qualifiers: Comment: Per cath 06/26/11- LAD 10% ostial stenosis, 10% proximal, 20-30% distal stenosis, Ramus 10-20% mid stenosis, OM1 20-30% mid stenosis (10) Essential hypertension Status: Chronic (11) Problem with dialysis access Status: Resolved Qualifiers: Encounter type: initial encounter Qualified Code(s): T82.898A - Other specified complication of vascular prosthetic devices, implants and grafts, initial encounter (12) Anasarca associated with disorder of kidney Status: Resolved (13) Anemia of chronic renal failure, stage 4 (severe) Status: Chronic (14) Autonomic neuropathy Status: Suspected (15) Chronic renal failure, stage 4 (severe) Status: Chronic Comment: Is currently following with nephrology. Also following with urology. Is trying to follow his low protein diet and feels he is doing well with it. (16) Retention, urine Status: Resolved (17) Acute on chronic diastolic CHF (congestive heart failure) Status: Resolved (18) Acute hypoxemic respiratory failure Status: Ruled-out (19) Hypoglycemia Status: Resolved Comment: resolved in ED (20) Acute respiratory failure with hypoxia Status: Ruled-out (21) Obesity (BMI 30-39.9) Status: Chronic (22) Noncompliance Status: Chronic (23) Diabetic neuropathy Status: Chronic (24) Diabetic nephropathy Status: Chronic (25) Diabetic retinopathy Status: Chronic (26) HLD (hyperlipidemia) Status: Chronic Qualifiers: (27) Blind left eye Status: Chronic (28) Diabetes mellitus type II, uncontrolled Status: Chronic Comment: Dx : 1992 Discussed with patient need to check BG in pairs, learn carb counting and then we can determine I/C ratio for him at last visit. is doing well with his diet. He stopped his basalglar. He is willing to start again at lower dose and titrate back up. He will start at 10 units and increase by 2-3 units every 3 days if he is waking with higher BG than he went to bed with. I have also decrease his correction to 1-50 so that he is not going low after correction. I have given he an alternative correction scale to use if he needs less correction when he begins with higer dose of basaglar and finds his current correction may be too strong. On statin On asa (29) Anxiety and depression Status: Chronic (30) GERD (gastroesophageal reflux disease) Status: Chronic Qualifiers: (31) Chewing tobacco nicotine dependence Status: Chronic Qualifiers: (32) ILDA (acute kidney injury) Status: Ruled-out (33) Right leg pain Status: Resolved (34) Chronic ulcer of 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 Status: Resolved (35) Cellulitis and abscess of right leg Status: Resolved (36) History of acute myocardial infarction Status: Chronic Reason for Consult Date of Consultation: 10/06/19 Reason for Consultation: Medical management of hypertension and diabetes History of Present Illness: The patient is a 48 year old M with past medical history single for diabetes mellitus type 2 with complications including end-stage renal disease, diabetic polyneuropathy who presented with blistering and erythema involving the toes of the left foot.. The changes involving the patient left foot was apparently noticed by the who sent the patient to the ED 5 days prior to his current admission. Patient was discharged home with Keflex and instructed to follow-up with the wound care center. Patient was seen at the wound care center by Dr. Pizano who elected to admit patient to the hospital for subsequent management Past Medical History Past Medical History (Chronic Problems): Chronic Problems (Last Updated 10/06/19 @ 12:23 by Carolina Pizano, DPAnitha) Ectopic cardiac beats (Chronic) Chronic renal failure, stage 5 (Chronic) Other specified peripheral vascular diseases (Chronic) Type 2 diabetes mellitus with diabetic polyneuropathy (Chronic) Atherosclerotic heart disease of [place] coronary artery without angina pectoris (Chronic) Per cath 06/26/11- LAD 10% ostial stenosis, 10% proximal, 20-30% distal stenosis, Ramus 10-20% mid stenosis, OM1 20-30% mid stenosis Essential hypertension (Chronic) Anemia of chronic renal failure, stage 4 (severe) (Chronic) Chronic renal failure, stage 4 (severe) (Chronic) Is currently following with nephrology. Also following with urology. Is trying to follow his low protein diet and feels he is doing well with it. Obesity (BMI 30-39.9) (Chronic) Noncompliance (Chronic) Diabetic neuropathy (Chronic) Diabetic nephropathy (Chronic) Diabetic retinopathy (Chronic) HLD (hyperlipidemia) (Chronic) Blind left eye (Chronic) Diabetes mellitus type II, uncontrolled (Chronic) Dx : 1992 Discussed with patient need to check BG in pairs, learn carb counting and then we can determine I/C ratio for him at last visit. is doing well with his diet. He stopped his basalglar. He is willing to start again at lower dose and titrate back up. He will start at 10 units and increase by 2-3 units every 3 days if he is waking with higher BG than he went to bed with. I have also decrease his correction to 1-50 so that he is not going low after correction. I have given he an alternative correction scale to use if he needs less correction when he begins with higer dose of basaglar and finds his current correction may be too strong. On statin On asa Anxiety and depression (Chronic) GERD (gastroesophageal reflux disease) (Chronic) Chewing tobacco nicotine dependence (Chronic) History of acute myocardial infarction (Chronic) Medical History: Medical History (Last Reviewed 10/06/19 @ 13:29 by Umair Real MD) Atherosclerotic heart disease of [place] coronary artery without angina pectoris (Chronic) I25.10 Per cath 06/26/11- LAD 10% ostial stenosis, 10% proximal, 20-30% distal stenosis, Ramus 10-20% mid stenosis, OM1 20-30% mid stenosis Essential hypertension (Chronic) I10 Problem with dialysis access (Resolved) T82.898A Anasarca associated with disorder of kidney (Resolved) N04.9 Anemia of chronic renal failure, stage 4 (severe) (Chronic) N18.4, D63.1 Autonomic neuropathy (Suspected) G90.9 Chronic renal failure, stage 4 (severe) (Chronic) N18.4 Is currently following with nephrology. Also following with urology. Is trying to follow his low protein diet and feels he is doing well with it. Retention, urine (Resolved) R33.9 Acute on chronic diastolic CHF (congestive heart failure) (Resolved) I50.33 Acute hypoxemic respiratory failure (Ruled-out) J96.01 Hypoglycemia (Resolved) E16.2 resolved in ED Acute respiratory failure with hypoxia (Ruled-out) J96.01 Obesity (BMI 30-39.9) (Chronic) E66.9 Noncompliance (Chronic) Z91.19 Diabetic neuropathy (Chronic) E11.40 Diabetic nephropathy (Chronic) E11.21 Diabetic retinopathy (Chronic) E11.319 HLD (hyperlipidemia) (Chronic) E78.5 Blind left eye (Chronic) H54.40 Diabetes mellitus type II, uncontrolled (Chronic) E11.65 Dx : 1992 Discussed with patient need to check BG in pairs, learn carb counting and then we can determine I/C ratio for him at last visit. is doing well with his diet. He stopped his basalglar. He is willing to start again at lower dose and titrate back up. He will start at 10 units and increase by 2-3 units every 3 days if he is waking with higher BG than he went to bed with. I have also decrease his correction to 1-50 so that he is not going low after correction. I have given he an alternative correction scale to use if he needs less correction when he begins with higer dose of basaglar and finds his current correction may be too strong. On statin On asa Anxiety and depression (Chronic) F41.9, F32.9 GERD (gastroesophageal reflux disease) (Chronic) K21.9 Chewing tobacco nicotine dependence (Chronic) F17.220 ILDA (acute kidney injury) (Ruled-out) N17.9 Right leg pain (Resolved) M79.604 Chronic ulcer of 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 (Resolved) L97.912 Cellulitis and abscess of right leg (Resolved) L03.115, L02.415 History of acute myocardial infarction (Chronic) I25.2 Type 2 diabetes mellitus with diabetic polyneuropathy E11.42 Kidney failure N19 Kidney stones N20.0 Pneumonia J18.9 Vision problems H54.7 Fistula Onset Date: ~12/2018 L98.8 Rt UE History of left heart catheterization (LHC) Onset Date: ~06/26/11 Z98.890 Per cath 06/26/11- LAD 10% ostial stenosis, 10% proximal, 20-30% distal stenosis, Ramus 10-20% mid stenosis, OM1 20-30% mid stenosis Hypertensive emergency (Resolved) I16.1 Hypokalemia (Resolved) E87.6 Allergies No Known Allergies Allergy (Verified 10/01/19 19:58) Home Medications: Ambulatory Orders Medication Instructions Recorded Gabapentin [Neurontin] 300 mg PO TIDCM 07/15/13 Atorvastatin Calcium [Lipitor] 20 mg PO QHS 11/19/17 Atenolol [Tenormin (beta elizabeth)] 100 mg PO DAILY 11/28/17 tamsulosin 0.4 mg capsule 0.4 mg PO DAILY cap 01/20/18 insulin glargine 100 unit/mL (3 2 unit SQ QHS ml 07/11/18 mL) subcutaneous pen Calcitriol [Rocaltrol] 0.5 mcg PO DAILY 08/04/18 Aspirin [Aspirin, Baby] 81 mg PO DAILY@0800 08/21/18 Calcium Acetate [Phoslo Gel Cap] 667 mg PO TIDCM #90 cap 08/25/18 Acetaminophen [Tylenol] 1,000 mg PO Q6H PRN PRN 08/26/18 Bupropion HCl [Bupropion Xl] 300 mg PO DAILY 08/26/18 Amlodipine [Norvasc] 10 mg PO DAILY #0 08/29/18 Cephalexin [Keflex] 500 mg PO Q6 10/06/19 Furosemide [Lasix] 80 mg PO BID@1000,1800 10/06/19 Hydralazine HCl 25 mg PO TID 10/06/19 Insulin Lispro [Humalog KwikPen] See Protocol SQ ACHS 10/06/19 Surgical History: Surgical History (Last Reviewed 10/06/19 @ 13:29 by Umair Real MD) History of appendectomy Z90.49 History of arteriovenostomy for renal dialysis Onset Date: ~08/2018 Z99.2 Status post insertion of dialysis catheter Onset Date: ~08/2018 Z95.828, Z99.2 History of eye surgery Z98.890 Lt retinal tear History of cholecystectomy Z90.49 Surgical History: cholecystectomy, - - AVF rt forearm 08/08/18 Psychiatric History: Anxiety, Depression Smoking Status: Never smoker Tobacco Use: Chew - *Family History Maternal Family History: Family History (Last Reviewed 10/06/19 @ 13:29 by Umair Real MD) Mother Heart disease Hypertension Father Cancer Brother Cancer Diabetes Sister Diabetes History Items: Heart Disease Paternal Family History: Family History (Last Reviewed 10/06/19 @ 13:29 by Umair Real MD) Mother Heart disease Hypertension Father Cancer Brother Cancer Diabetes Sister Diabetes History Items: Cancer - Father w/ Colon CA. Sibling Family History: Family History (Last Reviewed 10/06/19 @ 13:29 by Umair Real MD) Mother Heart disease Hypertension Father Cancer Brother Cancer Diabetes Sister Diabetes History Items: Diabetes - sister, brother who passed, no kidney disease Review of Systems Constitutional: Denies: Anorexia, Chills, Fever, Night Sweats, Weight Change HEENT: Denies: Head Aches, Sinus Congestion, Sinus Drainage Cardiovascular: Denies: Chest Pain, Orthopnea, Palpitations, Paroxysmal Noc. Dyspnea Respiratory: Denies: Cough, Shortness of breath at rest, Shortness of breath upon exertion, Sputum production Gastrointestinal: Denies: Abdominal Pain, Hematemesis, Hematochezia, Nausea, Melena, Vomiting Genitourinary: Denies: Dysuria, Frequency, Hematuria, Urgency Musculoskeletal: Denies: Joint Pain, Joint Tenderness Skin: Denies: Rash Neurological: Denies: Focal weakness, Numbness, Tingling Psychiatric: Denies: Homicidal Ideations, Suicidal Ideations Hematologic/ Lymphatic: Denies: Easy Bruising, Easy Bleeding Patient Problems: Active and Suspected Problems (Last Updated 10/06/19 @ 12:23 by Carolina Pizano DPM) Cellulitis of left lower limb (Acute) 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 exposed (Acute) Objective: GENERAL: cooperative HEENT: Atraumatic; EYES; Anicteric, Normal Conjunctiva NECK; supple, normal thyroid, RESPIRATORY: Diminished to auscultation CARDIOVASCULAR: Regular S1 S2, GI: soft, normoactive bowel sounds, : No Renal angle tenderness; EXTREMITIES: No edema, no clubbing, MUSCULOSKELETAL: Left foot wrapped in surgical dressing NEURO: Awake; no lateralizing signs. SKIN: No Rash PSYCH; Flat affect - Physical Exam Vitals/I&O's: Vital Signs Temp Pulse Resp BP Pulse Ox 99.1 F 84 18 155/66 H 96 10/06/19 11:45 10/06/19 11:45 10/06/19 11:45 10/06/19 11:45 10/06/19 11:45 Oxygen Delivery Method Room Air Weight: 96.6 kg Body Mass Index (BMI) 32.3 Finger Stick Blood Glucose 149 Current Medications Docusate Sodium (Colace) 200 mg PO BID PRN PRN PRN Reason: Constipation Glucagon () 1 mg IM .X1 PRN PRN Reason: Hypoglycemia Sodium Chloride () 250 mls @ 15 mls/hr IV .[id number] PRN PRN Reason: Saline Flush Sodium Chloride () 250 mls @ 15 mls/hr IV .[id number] PRN PRN Reason: Additional IVPB Infusion Dextrose (Dextrose 10%-Water) 250 mls @ 999 mls/hr IV .Q16M PRN; Protocol PRN Reason: HYPOGLYCEMIA Ondansetron HCl (Zofran) 4 mg IV Q8H PRN PRN PRN Reason: Nausea Sodium Chloride () 10 - 40 ml IV UD PRN PRN Reason: SALINE FLUSH Assessment/Plan All Active Problems (Last Updated 10/06/19 @ 12:23 by Carolina Pizano DPM) Dyspnea (Resolved) Pulmonary edema (Resolved) Cellulitis of left lower limb (Acute) 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 exposed (Acute) Problem with dialysis access (Resolved) Anasarca associated with disorder of kidney (Resolved) Retention, urine (Resolved) Acute on chronic diastolic CHF (congestive heart failure) (Resolved) Acute hypoxemic respiratory failure (Ruled-out) Hypoglycemia (Resolved) Acute respiratory failure with hypoxia (Ruled-out) ILDA (acute kidney injury) (Ruled-out) Right leg pain (Resolved) Chronic ulcer of 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 (Resolved) Cellulitis and abscess of right leg (Resolved) Hypertensive emergency (Resolved) Hypokalemia (Resolved) Patient is a 48-year-old gentleman admitted directly from the wound care center with diabetic foot infection 1. Diabetic foot infection ?patient admitted to the services of podiatry medicine. And is already on Keflex did continue added vancomycin. Consult has been placed to infectious disease by podiatry. Consult was also placed to vascular surgery for peripheral vascular disease status. Patient is scheduled to undergo yesterday's on 01/06/[address] Phillips 2. End-stage renal disease ?Consult placed to patient's continuous wave operator for dialysis orders 3. Diabetes mellitus type II with complications including diabetic nephropathy resulting in end-stage renal disease ?Did continue patient home regimen in addition to Accu-Cheks before meals and at bedtime with sliding scale coverage 4. Dyslipidemia ~patient is on statin therapy, continued at home dose 5. Hypertension ~ blood pressure controlled, home medications continued with dose adjustment as needed 6. Diabetic polyneuropathy?patient is on gabapentin did continue 7. Obesity with BMI of 32.4 ?Weight loss advised 8. DVT prophylaxis ?Patient on heparin Code Visit Office Visits / Consults: [id number] IP Consult L5
[2019-10-06 12:26] LABS: Erythrocyte Sedimentation Rate 43 mm/hr (0-20)
[2019-10-06 12:29] LABS: Absolute Lymphocyte Count 0.98 X10^3/uL (0.83-4.51); Absolute Neutrophil Count 7.7 X10^3/uL (2.0-7.7); Basophil# 0.02 X10^3/uL; Basophil% 0.2 % (0-1); Eosinophil# 0.03 X10^3/uL; Eosinophils% 0.3 % (0-5); Hematocrit 32.1 % (40-54); Hemoglobin 10.7 g/dL (13.0-16.5); Lymphocyte # 0.98 X10^3/ul (4.0); Lymphocyte % 10.3 % (19-41); Mean Corp Hgb Conc 33.3 g/dL (32-36); Mean Corpuscular Hgb 30.7 pg (27.0-32.0); Mean Corpuscular Volume 92.2 fL (80-94); Mean Platelet Vol. 10.3 fl (6.2-12.0); Monocyte# 0.77 X10^3/uL; Monocyte% 8.1 % (0-10); NRBC Flagged by Analyzer 0 % (0-5); Neutrophil # 7.69 X10^3/uL (2.7-7.7); Neutrophil % 80.7 % (47-70); Platelet Count 167 K/mm3 (150-450); RBC Distribution Width CV 11.6 % (11.6-14.6); RBC Distribution Width SD 39.3 fl (35.1-43.9); Red Blood Count 3.48 M/mm3 (4.6-6.2); White Blood Count 9.5 K/mm3 (4.4-11.0)
[2019-10-06] MEDS: 0.9% Saline Lock 10 ML Syringe IV (14:16)
[2019-10-06 14:21] VITALS: PULSE 78
[2019-10-06] MEDS: hydrALAZINE 25 MG Tablet PO ×2 (14:21→23:35)
[2019-10-06] MEDS: Insulin Lispro 100 UNIT/ML INSULN.PEN SC ×2 (14:22→23:46)
[2019-10-06 14:31] LABS: Bedside Glucose 292 mg/dL (70-110)
[2019-10-06 14:31] LABS: Creatinine, Serum 6.97 mg/dL (0.70-1.30); EST Glomerular Filtration Rate 9 mL/min (>60); Est Glom Filt Rate - Afr Amer 11 mL/min (>60); Estimated Creatinine Clearance 12.27 ml/min
--- NOTE | 2019-10-06 14:40 | CHAPLAIN ---
Type of Pastoral Visit _x__ Initial Visit ___ Follow-up Visit ___ On-call Visit ___ General Patient Visit ___ Spiritual Assessment ___ Family Conference ___ Bereavement ___ Rapid Response ___ Code Blue ___ Other (describe below) Pastoral Care Referral From _x__ Patient ___ Family ___ Nurse ___ Physician ___ Stringing Machine Tender ___ Voltmeter Operator ___ Other (describe below) Sacrament/Intervention _x__ Active listening ___ Anointing ___ Jewish ___ Bereavement ___ Communion ___ [place] exploration ___ _x__ Life review _x__ Prayer ___ Reconciliation ___ Sacrament of Sick _x__ Supportive presence ___ Wedding ___ Other (describe below) Pastoral Comments
--- NOTE | 2019-10-06 14:54 | NURSING ---
Addendum entered by Melissa Winters 10/06/19 14:56: left foot Original Note: wound photo:
--- NOTE | 2019-10-06 16:37 | CON.PCM_ITS ---
Consultation - Renal 10/06/19 PCP/ Referring MD: Requesting physician: [] Primary care physician: Zaida Mcneil MD Reason for Consultation:: ESRD HD MWF - History of Present Illness History of Present Illness: The patient is a 48 year old M well-known to me with ESRD due to diabetes and hypertension on hemodialysis Saturday, Saturday, Saturday admitted to [facility] for diabetic foot infection. His last dialysis was Saturday at outpatient clinic. He did receive an extra treatment on Saturday for high fluid gains on Saturday. He was seen in the emergency room last week and was discharged home on Keflex 500 mg every 6 hours. He followed up with podiatry and was hospitalized for continued infection on the dorsum of his left foot with blister formation and streaking with cellulitis. He had noticed low-grade fever and chills. He had pain walking on his foot. Blisters were noticed by his when he came out of the shower. He denies any trauma to his foot. He is currently treated with IV vancomycin. - Allergies Allergies: Allergies No Known Allergies Allergy (Verified 10/01/19 19:58) - Current Medications Current Medications: Current Medications Acetaminophen (Tylenol) 650 mg PO Q6H PRN PRN PRN Reason: Pain Score 1-3 /Temp>100.7 Albuterol Sulfate (Ventolin Aerosols) 2.5 mg INHALATION Q2H PRN PRN PRN Reason: Shortness of Breath/Wheezing Amlodipine Besylate (Norvasc) 10 mg PO DAILY COUNT INCLUDES [facility] Aspirin (Aspirin, Baby) 81 mg PO DAILY@0800 [facility] Atenolol (Tenormin (Beta Silvana)) 100 mg PO DAILY [facility] Atorvastatin Calcium (Lipitor) 20 mg PO QHS [facility] Bupropion HCl (Wellbutrin Xl) 300 mg PO DAILY [facility] Calcitriol (Rocaltrol) 0.5 mcg PO DAILY COUNT INCLUDES [facility] Calcium Acetate (Phoslo Gel Cap) 667 mg PO TIDCM [facility] Cephalexin (Keflex) 250 mg PO DAILY [facility] Docusate Sodium (Colace) 200 mg PO BID PRN PRN PRN Reason: Constipation Famotidine (Pepcid) 20 mg PO DAILY COUNT INCLUDES [facility] Furosemide (Lasix) 80 mg PO BID@1000,1800 [facility] Gabapentin (Neurontin) 300 mg PO TIDCM [facility] Glucagon () 1 mg IM .X1 PRN PRN Reason: Hypoglycemia Heparin Sodium (Porcine) (Heparin Na) 5,000 unit SC Q12 COUNT INCLUDES [facility] Hydralazine HCl (Apresoline) 25 mg PO TID COUNT INCLUDES [facility] Last Admin: 10/06/19 14:21 Dose: 25 mg Documented by: Sodium Chloride () 250 mls @ 15 mls/hr IV .[id number] PRN PRN Reason: Saline Flush Last Infusion: 10/06/19 14:14 Dose: 0 mls/hr Documented by: Sodium Chloride () 250 mls @ 15 mls/hr IV .[id number] PRN PRN Reason: Additional IVPB Infusion Dextrose (Dextrose 10%-Water) 250 mls @ 999 mls/hr IV .Q16M PRN; Protocol PRN Reason: HYPOGLYCEMIA Vancomycin IV Pharmacy to Dose (1 ea/ Sodium Chloride) 500 mls @ 250 mls/hr IV X1 PRN; Protocol PRN Reason: Rx to Dose Insulin Glargine (Lantus (Bk)) 2 units SC QHS COUNT INCLUDES [facility] Insulin Human Lispro (Humalog Kwikpen ([facility])) 0 unit SC ACHS COUNT INCLUDES [facility]; Protocol Last Admin: 10/06/19 14:22 Dose: 6 units Documented by: Melatonin (Melatonin) 3 mg PO QHS PRN PRN PRN Reason: INSOMNIA Nutritional Formula (Juan - [place] Flavor) 1 packet PO BIDCM COUNT INCLUDES [facility] Ondansetron HCl (Zofran) 4 mg IV Q8H PRN PRN PRN Reason: Nausea Oxycodone HCl (Oxyir) 5 mg PO Q4H PRN PRN PRN Reason: Pain Score 4-5/10 Sodium Chloride () 10 - 40 ml IV UD PRN PRN Reason: SALINE FLUSH Last Admin: 10/06/19 14:16 Dose: 20 ml Documented by: Tamsulosin HCl (Flomax) 0.4 mg PO DAILY COUNT INCLUDES [facility] - Past Medical History Past Medical History (Chronic Problems): Chronic Problems (Last Reviewed 10/06/19 @ 13:29 by Umair Real MD) Ectopic cardiac beats (Chronic) Chronic renal failure, stage 5 (Chronic) Other specified peripheral vascular diseases (Chronic) Type 2 diabetes mellitus with diabetic polyneuropathy (Chronic) Atherosclerotic heart disease of [place] coronary artery without angina pectoris (Chronic) Per cath 06/26/11- LAD 10% ostial stenosis, 10% proximal, 20-30% distal stenosis, Ramus 10-20% mid stenosis, OM1 20-30% mid stenosis Essential hypertension (Chronic) Anemia of chronic renal failure, stage 4 (severe) (Chronic) Chronic renal failure, stage 4 (severe) (Chronic) Is currently following with nephrology. Also following with urology. Is trying to follow his low protein diet and feels he is doing well with it. Obesity (BMI 30-39.9) (Chronic) Noncompliance (Chronic) Diabetic neuropathy (Chronic) Diabetic nephropathy (Chronic) Diabetic retinopathy (Chronic) HLD (hyperlipidemia) (Chronic) Blind left eye (Chronic) Diabetes mellitus type II, uncontrolled (Chronic) Dx : 1992 Discussed with patient need to check BG in pairs, learn carb counting and then we can determine I/C ratio for him at last visit. is doing well with his diet. He stopped his basalglar. He is willing to start again at lower dose and titrate back up. He will start at 10 units and increase by 2-3 units every 3 days if he is waking with higher BG than he went to bed with. I have also decrease his correction to 1-50 so that he is not going low after correction. I have given he an alternative correction scale to use if he needs less correction when he begins with higer dose of basaglar and finds his current correction may be too strong. On statin On asa Anxiety and depression (Chronic) GERD (gastroesophageal reflux disease) (Chronic) Chewing tobacco nicotine dependence (Chronic) History of acute myocardial infarction (Chronic) - Past Surgical History Surgical History: appendectomy, cholecystectomy, - - AVF rt forearm 08/08/18, eye surgery - Social History Smoking Status: Never smoker Alcohol: None Drugs: None - Family History Maternal Family History: Family History (Last Reviewed 10/06/19 @ 13:29 by Umair Real MD) Mother Heart disease Hypertension Father Cancer Brother Cancer Diabetes Sister Diabetes History Items: Heart Disease Paternal Family History: Family History (Last Reviewed 10/06/19 @ 13:29 by Umair Real MD) Mother Heart disease Hypertension Father Cancer Brother Cancer Diabetes Sister Diabetes History Items: Cancer - Father w/ Colon CA. Sibling Family History: Family History (Last Reviewed 10/06/19 @ 13:29 by Umair Real MD) Mother Heart disease Hypertension Father Cancer Brother Cancer Diabetes Sister Diabetes History Items: Diabetes - sister, brother who passed, no kidney disease Review of Systems Constitutional: Reports: Chills, Fever. Denies: Anorexia, Weakness Cardiovascular: Denies: Chest Pain Respiratory: Denies: Shortness of Breath Gastrointestinal: Denies: Abdominal Pain, Nausea, Vomiting Musculoskeletal: Reports: Foot Pain - Due to infection Skin: Reports: Wounds - Dorsum of left foot Psychiatric: Reports: Depression Hematologic/ Lymphatic: Reports: Anemia Patient Problems: Active and Suspected Problems (Last Reviewed 10/06/19 @ 13:29 by Umair Real MD) Cellulitis of left lower limb (Acute) 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 exposed (Acute) - Physical Exam Vitals/I&O's: Vital Signs Temp Pulse Resp BP Pulse Ox 99.1 F 78 18 155/66 H 96 10/06/19 11:45 10/06/19 14:21 10/06/19 11:45 10/06/19 11:45 10/06/19 11:45 Oxygen Delivery Method Room Air Weight: 96.6 kg Body Mass Index (BMI) 32.3 Finger Stick Blood Glucose 149 Intake and Output for Last 24 Hours 10/04/19 10/05/19 10/06/19 23:59 23:59 23:59 Intake Total 530 / 530 Balance 530 / 530 General: Alert, Oriented x3, Cooperative, No apparent distress Neck: Supple Lungs: Clear to auscultation Cardiovascular: Regular rate Abdomen: Bowel Sounds Present, Soft, Non Tender, Non-Distended, Obese Extremities: No edema, - - Left foot wrapped Skin: Ulcer/ Wound - Dorsum left foot that is currently wrapped Musculoskeletal: No Muscle Wasting Neurological: Cranial nerves II-XII grossly intact Psych/Mental Status: Normal Affect, Appropriate, Alert and oriented to time, place, person, mood and affect Laboratory Results 10/06/19 12:06: WBC 9.5, RBC 3.48 L, Hgb 10.7 L, Hct 32.1 L, MCV 92.2, MCH 30.7, MCHC 33.3, RDW Std Deviation 39.3, RDW Coeff of Tomy 11.6, Plt Count 167, MPV 10.3, Immature Gran % (Auto) 0.400, Neut % (Auto) 80.7 H, Lymph % (Auto) 10.3 L, [place] % (Auto) 8.1, Eos % (Auto) 0.3, Baso % (Auto) 0.2, Absolute Neuts (auto) 7.7, Absolute Lymphs (auto) 0.98, Nucleated RBC % 0, ESR 43 H 10/06/19 12:06: C-React Prot Ext Range 69.90 H 10/06/19 12:06: Creatinine 6.97 H, Estim Creat Clear Calc 12.27, Est GFR (MDRD) Af Amer 11 L, Est GFR (MDRD) Non-Af 9 L 10/06/19 14:18: POC Glucose 292 H 10/06/19 14:20: S.aureus Protein A PCR Pending, MRSA (PCR) Pending Current Medications Acetaminophen (Tylenol) 650 mg PO Q6H PRN PRN PRN Reason: Pain Score 1-3 /Temp>100.7 Albuterol Sulfate (Ventolin Aerosols) 2.5 mg INHALATION Q2H PRN PRN PRN Reason: Shortness of Breath/Wheezing Amlodipine Besylate (Norvasc) 10 mg PO DAILY COUNT [facility]CLUDES [facility] Aspirin (Aspirin, Baby) 81 mg PO DAILY@0800 [facility] Atenolol (Tenormin (Beta Silvana)) 100 mg PO DAILY [facility] Atorvastatin Calcium (Lipitor) 20 mg PO QHS [facility] Bupropion HCl (Wellbutrin Xl) 300 mg PO DAILY [facility] Calcitriol (Rocaltrol) 0.5 mcg PO DAILY COUNT INCLUDES [facility] Calcium Acetate (Phoslo Gel Cap) 667 mg PO TIDCM COUNT INCLUDES [facility] Cephalexin (Keflex) 250 mg PO DAILY [facility] Docusate Sodium (Colace) 200 mg PO BID PRN PRN PRN Reason: Constipation Famotidine (Pepcid) 20 mg PO DAILY COUNT INCLUDES [facility] Furosemide (Lasix) 80 mg PO BID@1000,1800 [facility] Gabapentin (Neurontin) 300 mg PO TIDCM [facility] Glucagon () 1 mg IM .X1 PRN PRN Reason: Hypoglycemia Heparin Sodium (Porcine) (Heparin Na) 5,000 unit SC Q12 [facility] Hydralazine HCl (Apresoline) 25 mg PO TID [facility] Last Admin: 10/06/19 14:21 Dose: 25 mg Documented by: Sodium Chloride () 250 mls @ 15 mls/hr IV .[id number] PRN PRN Reason: Saline Flush Last Infusion: 10/06/19 14:14 Dose: 0 mls/hr Documented by: Sodium Chloride () 250 mls @ 15 mls/hr IV .[id number] PRN PRN Reason: Additional IVPB Infusion Dextrose (Dextrose 10%-Water) 250 mls @ 999 mls/hr IV .Q16M PRN; Protocol PRN Reason: HYPOGLYCEMIA Vancomycin IV Pharmacy to Dose (1 ea/ Sodium Chloride) 500 mls @ 250 mls/hr IV X1 PRN; Protocol PRN Reason: Rx to Dose Insulin Glargine (Lantus (Bkc)) 2 units SC QHS [facility] Insulin Human Lispro (Humalog Kwikpen ([facility])) 0 unit SC ACHS [facility]; Protocol Last Admin: 10/06/19 14:22 Dose: 6 units Documented by: Melatonin (Melatonin) 3 mg PO QHS PRN PRN PRN Reason: INSOMNIA Nutritional Formula (Juan - [place] Flavor) 1 packet PO BIDCM [facility] Ondansetron HCl (Zofran) 4 mg IV Q8H PRN PRN PRN Reason: Nausea Oxycodone HCl (Oxyir) 5 mg PO Q4H PRN PRN PRN Reason: Pain Score 4-5/10 Sodium Chloride () 10 - 40 ml IV UD PRN PRN Reason: SALINE FLUSH Last Admin: 10/06/19 14:16 Dose: 20 ml Documented by: Tamsulosin HCl (Flomax) 0.4 mg PO DAILY COUNT INCLUDES [facility] Assessment/Plan All Active Problems (Last Reviewed 10/06/19 @ 13:29 by Umair Real MD) Dyspnea (Resolved) Pulmonary edema (Resolved) Cellulitis of left lower limb (Acute) 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 exposed (Acute) Problem with dialysis access (Resolved) Anasarca associated with disorder of kidney (Resolved) Retention, urine (Resolved) Acute on chronic diastolic CHF (congestive heart failure) (Resolved) Acute hypoxemic respiratory failure (Ruled-out) Hypoglycemia (Resolved) Acute respiratory failure with hypoxia (Ruled-out) ILDA (acute kidney injury) (Ruled-out) Right leg pain (Resolved) Chronic ulcer of 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 (Resolved) Cellulitis and abscess of right leg (Resolved) Hypertensive emergency (Resolved) Hypokalemia (Resolved) 1. ESRD hemodialysis next on Saturday. 2. Diabetic foot infection on left unresponsive to oral Keflex as outpatient. Currently on IV vancomycin. Monitor Vanco levels and redos for level <15. Await culture results 3. DM type II with history noncompliance 4. Hypertension BP stable 5. History of high interdialytic fluid gains
[2019-10-06 16:45] VITALS: BP 140/69; PULSE 77; RESP 16; TEMP 36.9; O2SAT 99
[2019-10-06] MEDS: Gabapentin 300 MG Capsule PO (16:49)
[2019-10-06] MEDS: Cephalexin 250 MG Capsule PO (16:49)
[2019-10-06] MEDS: Calcium Acetate 667 MG Capsule PO (17:02)
[2019-10-06] MEDS: Furosemide 80 MG Tablet PO (17:02)
--- NOTE | 2019-10-06 17:15 | PCM.RX.CS ---
Consult Pharmacy has been consulted to manage selected antiobiotic: Vancomycin Type of Consult: New start Suspected Infection: Other - Diabetic Foot Ulcer Prior Doses of Antibiotics Received/Current Regimen: VANCOMYCIN 1500MG IV 10/06 @ 1414 Labs: Creatinine 6.97 mg/dL (0.70-1.30) H 10/06/19 12:06 Est GFR (MDRD) Af Amer 11 mL/min (>60) L 10/06/19 12:06 Est GFR (MDRD) Non-Af 9 mL/min (>60) L 10/06/19 12:06 Weight used for dosin.6 kg Estimated Creatinine Clearance: 14.3 Goal Trough: 10-15 mcg/mL Pharmacy Plan for Drug Dosing: HD patient, normal schedule MWF. 1. Weight based dose given today 2. Schedule a 750mg dose to be given after dialysis tomorrow 3. Random level scheduled prior to dialysis on Saturday 4. Pharmacy Service will continue to monitor and adjust dosing as required. Labs to be done on [date and time ordered]: 10/09/2019 @ 0600 (with AM labs)
[2019-10-06 18:27] LABS: M R Staph aureus DNA By PCR POSITIVE (Negative); Probe Check PASS; Staph aureus DNA By PCR POSITIVE (Negative)
[2019-10-06 23:00] VITALS: BP 152/80; PULSE 75; RESP 18; TEMP 37.1; O2SAT 93
[2019-10-06] MEDS: Heparin Injection (Vial) 5,000 UNIT/ML VIAL 5000 UNIT SC (23:34)
[2019-10-06 23:35] VITALS: BP 152/80; PULSE 75
[2019-10-06] MEDS: Atorvastatin Calcium 20 MG Tablet PO (23:35)
[2019-10-07] VITALS (7 sets, daily range): BP systolic 135–157; BP diastolic 62–80; PULSE 70–76; RESP 14–18; TEMP 36.5–37.1; O2SAT 95–100
[2019-10-07 00:26] LABS: Bedside Glucose 90 mg/dL (70-110)
[2019-10-07 00:26] LABS: Bedside Glucose 182 mg/dL (70-110)
[2019-10-07 05:28] LABS: Absolute Neutrophil Count 6.4 X10^3/uL (2.0-7.7); Basophil# 0.02 X10^3/uL; Basophil% 0.2 % (0-1); Eosinophil# 0.14 X10^3/uL; Eosinophils% 1.6 % (0-5); Hematocrit 30.1 % (40-54); Hemoglobin 10.2 g/dL (13.0-16.5); Lymphocyte % 16.8 % (19-41); Mean Corp Hgb Conc 33.9 g/dL (32-36); Mean Corpuscular Hgb 31.3 pg (27.0-32.0); Mean Corpuscular Volume 92.3 fL (80-94); Mean Platelet Vol. 10.2 fl (6.2-12.0); Monocyte# 0.79 X10^3/uL; Monocyte% 8.8 % (0-10); NRBC Flagged by Analyzer 0 % (0-5); Neutrophil # 6.44 X10^3/uL (2.7-7.7); Neutrophil % 72.2 % (47-70); Platelet Count 169 K/mm3 (150-450); RBC Distribution Width CV 11.5 % (11.6-14.6); RBC Distribution Width SD 39.1 fl (35.1-43.9); Red Blood Count 3.26 M/mm3 (4.6-6.2); White Blood Count 8.9 K/mm3 (4.4-11.0)
[2019-10-07 05:41] LABS: ALB/GLOB Ratio 0.7 RATIO (0.9-2.4); AST(SGOT) 19 U/L (15-37); Alanine Aminotransfer ALT/SGPT 47 U/L (16-61); Alkaline Phosphatase 132 U/L (45-117); Anion Gap 7 (5-15); BUN 58 mg/dL (7-18); BUN/Creat Ratio 6.9 RATIO (10-20); Calcium,Total 8.1 mg/dL (8.5-10.1); Chloride 98 mmol/L (98-107); Creatinine, Serum 8.45 mg/dL (0.70-1.30); EST Glomerular Filtration Rate 7 mL/min (>60); Est Glom Filt Rate - Afr Amer 9 mL/min (>60); Estimated Creatinine Clearance 10.12 ml/min; Globulin 4.1 g/dL (2.2-4.2); Glucose 198 mg/dL (74-106); Potassium 4.2 mmol/L (3.5-5.1); Protein, Total 7.1 g/dL (6.4-8.2); Sodium Level 135 mmol/L (136-145)
[2019-10-07] MEDS: hydrALAZINE 25 MG Tablet PO ×2 (06:44→22:55)
[2019-10-07] MEDS: Insulin Lispro 100 UNIT/ML INSULN.PEN SC ×2 (06:45→18:55)
[2019-10-07 06:56] LABS: Bedside Glucose 171 mg/dL (70-110)
--- NOTE | 2019-10-07 07:25 | PCM.PN.HOSP ---
Patient Problems: Active and Suspected Problems (Last Reviewed 10/06/19 @ 13:29 by Umair Real MD) Cellulitis of left lower limb (Acute) 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 exposed (Acute) Reason for Visit: Follow-up diabetic foot infection Subjective: Patient is a 48-year-old gentleman admitted directly from the wound care center with diabetic foot infection patient MRSA screen came back positive subsequently placed in isolation. Patient also complains of loose bowel movement stool for C. difficile ordered. Objective: GENERAL: cooperative HEENT: Atraumatic; EYES; Anicteric, Normal Conjunctiva NECK; supple, normal thyroid, RESPIRATORY: Diminished to auscultation CARDIOVASCULAR: Regular S1 S2, GI: soft, normoactive bowel sounds, : No Renal angle tenderness; EXTREMITIES: No edema, no clubbing, MUSCULOSKELETAL: Left foot wrapped in surgical dressing NEURO: Awake; no lateralizing signs. SKIN: No Rash PSYCH; Flat affect Vitals/I&O's: Vital Signs Temp Pulse Resp BP Pulse Ox 97.8 F 71 18 149/67 H 95 10/07/19 03:57 10/07/19 06:44 10/07/19 03:57 10/07/19 06:44 10/07/19 03:57 Oxygen Delivery Method Room Air Weight: 96.6 kg Body Mass Index (BMI) 32.3 Finger Stick Blood Glucose 149 Intake and Output for Last 24 Hours 10/05/19 10/06/19 10/07/19 23:59 23:59 23:59 Intake Total 1130 / 1230 400 / 400 Balance 1130 / 1230 400 / 400 Laboratory Results 10/06/19 08:52: S.aureus Protein A PCR Cancelled, MRSA (PCR) Cancelled 10/06/19 12:06: WBC 9.5, RBC 3.48 L, Hgb 10.7 L, Hct 32.1 L, MCV 92.2, MCH 30.7, MCHC 33.3, RDW Std Deviation 39.3, RDW Coeff of Tomy 11.6, Plt Count 167, MPV 10.3, Immature Gran % (Auto) 0.400, Neut % (Auto) 80.7 H, Lymph % (Auto) 10.3 L, [place] % (Auto) 8.1, Eos % (Auto) 0.3, Baso % (Auto) 0.2, Absolute Neuts (auto) 7.7, Absolute Lymphs (auto) 0.98, Nucleated RBC % 0, ESR 43 H 10/06/19 12:06: C-React Prot Ext Range 69.90 H 10/06/19 12:06: Creatinine 6.97 H, Estim Creat Clear Calc 12.27, Est GFR (MDRD) Af Amer 11 L, Est GFR (MDRD) Non-Af 9 L 10/06/19 14:18: POC Glucose 292 H 10/06/19 14:20: S.aureus Protein A PCR POSITIVE H, MRSA (PCR) POSITIVE H 10/06/19 16:47: POC Glucose 90 10/06/19 23:44: POC Glucose 182 H 10/07/19 05:00: WBC 8.9, RBC 3.26 L, Hgb 10.2 L, Hct 30.1 L, MCV 92.3, MCH 31.3, MCHC 33.9, RDW Std Deviation 39.1, RDW Coeff of Tomy 11.5 L, Plt Count 169, MPV 10.2, Immature Gran % (Auto) 0.400, Neut % (Auto) 72.2 H, Lymph % (Auto) 16.8 L, [place] % (Auto) 8.8, Eos % (Auto) 1.6, Baso % (Auto) 0.2, Absolute Neuts (auto) 6.4, Absolute Lymphs (auto) 1.50, Nucleated RBC % 0 10/07/19 05:00: Sodium 135 L, Potassium 4.2, Chloride 98, Carbon Dioxide 30.0, Anion Gap 7, BUN 58 H, Creatinine 8.45 H*, Estim Creat Clear Calc 10.12, Est GFR (MDRD) Af Amer 9 L, Est GFR (MDRD) Non-Af 7 L, BUN/Creatinine Ratio 6.9 L, Glucose 198 H, Calcium 8.1 L, Total Bilirubin 0.30, AST 19, ALT 47, Alkaline Phosphatase 132 H, Total Protein 7.1, Albumin 3.0 L, Globulin 4.1, Albumin/Globulin Ratio 0.7 L 10/07/19 06:47: POC Glucose 171 H Current Medications Acetaminophen (Tylenol) 650 mg PO Q6H PRN PRN PRN Reason: Pain Score 1-3 /Temp>100.7 Albuterol Sulfate (Ventolin Aerosols) 2.5 mg INHALATION Q2H PRN PRN PRN Reason: Shortness of Breath/Wheezing Amlodipine Besylate (Norvasc) 10 mg PO DAILY [facility] Aspirin (Aspirin, Baby) 81 mg PO DAILY@0800 [facility] Atenolol (Tenormin (Beta Silvana)) 100 mg PO DAILY [facility] Atorvastatin Calcium (Lipitor) 20 mg PO QHS [facility] Last Admin: 10/06/19 23:35 Dose: 20 mg Documented by: Bupropion HCl (Wellbutrin Xl) 300 mg PO DAILY [facility] Calcitriol (Rocaltrol) 0.5 mcg PO DAILY [facility] Calcium Acetate (Phoslo Gel Cap) 667 mg PO TIDCM [facility] Last Admin: 10/06/19 17:02 Dose: 667 mg Documented by: Cephalexin (Keflex) 250 mg PO DAILY [facility] Last Admin: 10/06/19 16:49 Dose: 250 mg Documented by: Docusate Sodium (Colace) 200 mg PO BID PRN PRN PRN Reason: Constipation Famotidine (Pepcid) 20 mg PO DAILY [facility] Furosemide (Lasix) 80 mg PO BID@1000,1800 [facility] Last Admin: 10/06/19 17:02 Dose: 80 mg Documented by: Gabapentin (Neurontin) 300 mg PO TIDCM [facility] Last Admin: 10/06/19 16:49 Dose: 300 mg Documented by: Glucagon () 1 mg IM .X1 PRN PRN Reason: Hypoglycemia Heparin Sodium (Porcine) (Heparin Na) 5,000 unit SC Q12 [facility] Last Admin: 10/06/19 23:34 Dose: 5,000 unit Documented by: Hydralazine HCl (Apresoline) 25 mg PO TID [facility] Last Admin: 10/07/19 06:44 Dose: 25 mg Documented by: Sodium Chloride () 250 mls @ 15 mls/hr IV .[id number] PRN PRN Reason: Saline Flush Last Infusion: 10/06/19 14:14 Dose: 0 mls/hr Documented by: Sodium Chloride () 250 mls @ 15 mls/hr IV .[id number] PRN PRN Reason: Additional IVPB Infusion Dextrose (Dextrose 10%-Water) 250 mls @ 999 mls/hr IV .Q16M PRN; Protocol PRN Reason: HYPOGLYCEMIA Vancomycin IV Pharmacy to Dose (1 ea/ Sodium Chloride) 500 mls @ 250 mls/hr IV X1 PRN; Protocol PRN Reason: Rx to Dose Vancomycin HCl 750 mg/ Sodium (Chloride) 265 mls @ 250 mls/hr IV X1 ONE Stop: 10/07/19 17:03 Insulin Glargine (Lantus (Bkc)) 2 units SC QHS [facility] Last Admin: 10/06/19 23:47 Dose: 2 u Documented by: Insulin Human Lispro (Humalog Kwikpen ([facility])) 0 unit SC ACHS [facility]; Protocol Last Admin: 10/07/19 06:45 Dose: 2 units Documented by: Melatonin (Melatonin) 3 mg PO QHS PRN PRN PRN Reason: INSOMNIA Nutritional Formula (Juan - [place] Flavor) 1 packet PO BIDCM [facility] Last Admin: 10/06/19 16:48 Dose: 1 packet Documented by: Ondansetron HCl (Zofran) 4 mg IV Q8H PRN PRN PRN Reason: Nausea Oxycodone HCl (Oxyir) 5 mg PO Q4H PRN PRN PRN Reason: Pain Score 4-5/10 Sodium Chloride () 10 - 40 ml IV UD PRN PRN Reason: SALINE FLUSH Last Admin: 10/06/19 14:16 Dose: 20 ml Documented by: Tamsulosin HCl (Flomax) 0.4 mg PO DAILY [facility] STROKE Vital Signs/Narrative: Vital Signs Temp Pulse Resp BP Pulse Ox 10/07/19 06:44 71 149/67 H 10/07/19 03:57 97.8 F 71 18 149/67 H 95 Medical Necessity - Tobacco Use Smoking Status: Never smoker Tobacco Use: Chew Assessment/Plan All Active Problems (Last Reviewed 10/06/19 @ 13:29 by Umair Real MD) Dyspnea (Resolved) Pulmonary edema (Resolved) Cellulitis of left lower limb (Acute) 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 exposed (Acute) Problem with dialysis access (Resolved) Anasarca associated with disorder of kidney (Resolved) Retention, urine (Resolved) Acute on chronic diastolic CHF (congestive heart failure) (Resolved) Acute hypoxemic respiratory failure (Ruled-out) Hypoglycemia (Resolved) Acute respiratory failure with hypoxia (Ruled-out) ILDA (acute kidney injury) (Ruled-out) Right leg pain (Resolved) Chronic ulcer of 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 (Resolved) Cellulitis and abscess of right leg (Resolved) Hypertensive emergency (Resolved) Hypokalemia (Resolved) Patient is a 48-year-old gentleman admitted directly from the wound care center with diabetic foot infection 1. Diabetic foot infection ?patient admitted to the services of podiatry medicine. And is already on Keflex did continue added vancomycin. Consult has been placed to infectious disease by podiatry. Consult was also placed to vascular surgery for peripheral vascular disease status. Patient is scheduled to undergo arterial studies on 10/07/2019. By Dr. Phillips ?MRSA screen came back positive patient is on vancomycin subsequent antibiotic therapy deferred to infectious disease 2. End-stage renal disease ?Consult placed to patient's hospice liaison for dialysis orders 3. Diabetes mellitus type II with complications including diabetic nephropathy resulting in end-stage renal disease ?Did continue patient home regimen in addition to Accu-Cheks before meals and at bedtime with sliding scale coverage 4. Dyslipidemia ~patient is on statin therapy, continued at home dose 5. Hypertension ~ blood pressure controlled, home medications continued with dose adjustment as needed 6. Diabetic polyneuropathy?patient is on gabapentin did continue 7. Obesity with BMI of 32.4 ?Weight loss advised 8. DVT prophylaxis ?Patient on heparin 9. Diarrhea ?Given patient recent antibiotic use patient was placed under enteric precautions whilst ruling out C. difficile colitis. Code Visit Inpatient E&M: 13930 Subs Hosp L2
[2019-10-07] MEDS: Gabapentin 300 MG Capsule PO ×2 (07:51→16:27)
[2019-10-07] MEDS: Calcium Acetate 667 MG Capsule PO ×3 (07:52→18:52)
--- NOTE | 2019-10-07 10:50 | CON.PCM_ITS ---
Problem List (1) Other specified peripheral vascular diseases Status: Chronic Reason for Consult Date of Consultation: 10/07/19 Reason for Consultation: Evaluate for PAD History of Present Illness: The patient is a 48 year old M who came in with ulceration and wound cellulitis on his left foot. More he was admitted in from the refrigeration systems installer in managing the wound. On imaging and his PVRs it shows noncompressibility and extensive calcifications throughout his vasculature. Vascular surgery consulted for evaluation of this. Reviewing the studies both vessels are noncompressible on the right and on the left the posterior tib is noncompressible but an RANJAN 1.29 of the dorsalis pedis. Duplex of both ankles show triphasic flow into the foot. His digit brachial index shows peak waveforms and normal DBI's at 1.18 on the right and 0.9 on the left vascular surgery consulted for evaluation of this. No coronary history. No stroke. No smoking. Hypertension on meds. He has been diabetic for years. No hyperlipidemia. No prior PAD. 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 Also following with urology. Is trying to follow his low protein diet and feels he is doing well with it. Obesity (BMI 30-39.9) (Chronic) Noncompliance (Chronic) Diabetic neuropathy (Chronic) Diabetic nephropathy (Chronic) Diabetic retinopathy (Chronic) HLD (hyperlipidemia) (Chronic) Blind left eye (Chronic) Diabetes mellitus type II, uncontrolled (Chronic) Dx : 1992 Discussed with patient need to check BG in pairs, learn carb counting and then we can determine I/C ratio for him at last visit. is doing well with his diet. He stopped his basalglar. He is willing to start again at lower dose and titrate back up. He will start at 10 units and increase by 2-3 units every 3 days if he is waking with higher BG than he went to bed with. I have also decrease his correction to 1-50 so that he is not going low after correction. I have given he an alternative correction scale to use if he needs less correction when he begins with higer dose of basaglar and finds his current correction may be too strong. 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 Also following with urology. Is trying to follow his low protein diet and feels he is doing well with it. Retention, urine (Resolved) R33.9 Acute on chronic diastolic CHF (congestive heart failure) (Resolved) I50.33 Acute hypoxemic respiratory failure (Ruled-out) J96.01 Hypoglycemia (Resolved) E16.2 resolved in ED Acute respiratory failure with hypoxia (Ruled-out) J96.01 Obesity (BMI 30-39.9) (Chronic) E66.9 Noncompliance (Chronic) Z91.19 Diabetic neuropathy (Chronic) E11.40 Diabetic nephropathy (Chronic) E11.21 Diabetic retinopathy (Chronic) E11.319 HLD (hyperlipidemia) (Chronic) E78.5 Blind left eye (Chronic) H54.40 Diabetes mellitus type II, uncontrolled (Chronic) E11.65 Dx : 1992 Discussed with patient need to check BG in pairs, learn carb counting and then we can determine I/C ratio for him at last visit. is doing well with his diet. He stopped his basalglar. He is willing to start again at lower dose and titrate back up. He will start at 10 units and increase by 2-3 units every 3 days if he is waking with higher BG than he went to bed with. I have also decrease his correction to 1-50 so that he is not going low after correction. I have given he an alternative correction scale to use if he needs less correction when he begins with higer dose of basaglar and finds his current correction may be too strong. On statin On asa Anxiety and depression (Chronic) F41.9, F32.9 GERD (gastroesophageal reflux disease) (Chronic) K21.9 Chewing tobacco nicotine dependence (Chronic) F17.220 ILDA (acute kidney injury) (Ruled-out) N17.9 Right leg pain (Resolved) M79.604 Chronic ulcer of 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 (Resolved) L97.912 Cellulitis and abscess of right leg (Resolved) L03.115, L02.415 History of acute myocardial infarction (Chronic) I25.2 Type 2 diabetes mellitus with diabetic polyneuropathy E11.42 Kidney failure N19 Kidney stones N20.0 Pneumonia J18.9 Vision problems H54.7 Fistula Onset Date: ~12/2018 L98.8 Rt UE History of left heart catheterization (LHC) Onset Date: ~06/26/11 Z98.890 Per cath 06/26/11- LAD 10% ostial stenosis, 10% proximal, 20-30% distal [facility] nosis, Ramus 10-20% mid stenosis, OM1 20-30% mid stenosis Hypertensive emergency (Resolved) I16.1 Hypokalemia (Resolved) E87.6 Allergies No Known Allergies Allergy (Verified 10/01/19 19:58) Home Medications: Ambulatory Orders Medication Instructions Recorded Gabapentin [Neurontin] 300 mg PO TIDCM 07/15/13 Atorvastatin Calcium [Lipitor] 20 mg PO QHS 11/19/17 Atenolol [Tenormin (beta silvana)] 100 mg PO DAILY 11/28/17 tamsulosin 0.4 mg capsule 0.4 mg PO DAILY cap 01/20/18 insulin glargine 100 unit/mL (3 2 unit SQ QHS ml 07/11/18 mL) subcutaneous pen Calcitriol [Rocaltrol] 0.5 mcg PO DAILY 08/04/18 Aspirin [Aspirin, Baby] 81 mg PO DAILY@0800 08/21/18 Calcium Acetate [Phoslo Gel Cap] 667 mg PO TIDCM #90 cap 08/25/18 Acetaminophen [Tylenol] 1,000 mg PO Q6H PRN PRN 08/26/18 Bupropion HCl [Bupropion Xl] 300 mg PO DAILY 08/26/18 Amlodipine [Norvasc] 10 mg PO DAILY #0 08/29/18 Cephalexin [Keflex] 500 mg PO Q6 10/06/19 Furosemide [Lasix] 80 mg PO BID@1000,1800 10/06/19 Hydralazine HCl 25 mg PO TID 10/06/19 Insulin Lispro [Humalog KwikPen] See Protocol SQ ACHS 10/06/19 Surgical History: Surgical History (Last Reviewed 10/06/19 @ 13:29 by Umair Real MD) History of appendectomy Z90.49 History of arteriovenostomy for renal dialysis Onset Date: ~08/2018 Z99.2 Status post insertion of dialysis catheter Onset Date: ~08/2018 Z95.828, Z99.2 History of eye surgery Z98.890 Lt retinal tear History of cholecystectomy Z90.49 Surgical History: appendectomy, cholecystectomy, - - AVF rt forearm 08/08/18, eye surgery Psychiatric History: Anxiety, Depression Lives: Spouse/ Significant Other, With Family Smoking Status: Never smoker Tobacco Use: Chew Alcohol: None Drugs: None - *Family History Maternal Family History: Family History (Last Reviewed 10/07/19 @ 10:55 by Conner Phillips MD) Mother Heart disease Hypertension Father Cancer Brother Cancer Diabetes Sister Diabetes History Items: Heart Disease Paternal Family History: Family History (Last Reviewed 10/07/19 @ 10:55 by Conner Phillips MD) Mother Heart disease Hypertension Father Cancer Brother Cancer Diabetes Sister Diabetes History Items: Cancer - Father w/ Colon CA. Sibling Family History: Family History (Last Reviewed 10/07/19 @ 10:55 by Conner Phillips MD) Mother Heart disease Hypertension Father Cancer Brother Cancer Diabetes Sister Diabetes History Items: Diabetes - sister, brother who passed, no kidney disease Review of Systems Constitutional: Denies: Chills, Fever, Weight Change HEENT: Denies: Head Aches, Sinus Congestion, Sinus Drainage Cardiovascular: Denies: Chest Pain, Palpitations Respiratory: Denies: Cough, Shortness of breath at rest, Sputum production Gastrointestinal: Denies: Abdominal Pain, Nausea, Vomiting Genitourinary: Denies: Dysuria Skin: Reports: Wounds - Left foot Patient Problems: Active and Suspected Problems (Last Reviewed 10/07/19 @ 10:55 by Conner Phillips MD) Cellulitis of left lower limb (Acute) 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 exposed (Acute) Subjective: Good patient awake alert oriented no apparent distress - Physical Exam Vitals/I&O's: Vital Signs Temp Pulse Resp BP Pulse Ox 98.7 F 72 18 157/79 H 99 10/07/19 08:00 10/07/19 08:00 10/07/19 08:00 10/07/19 08:00 10/07/19 08:00 Oxygen Delivery Method Room Air Weight: 212 lb 15.465 oz Body Mass Index (BMI) 32.3 Finger Stick Blood Glucose 149 Intake and Output for Last 24 Hours 10/05/19 10/06/19 10/07/19 23:59 23:59 23:59 Intake Total 1130 / 1230 400 / 400 Balance 1130 / 1230 400 / 400 General: Alert, Oriented x3 HEENT: Atraumatic Oral: Moist Mucosa Neck: Supple Lungs: Clear to auscultation Cardiovascular: Regular rate Abdomen: Soft, Non Tender Extremities: - - Currently undergoing dialysis in the right radiocephalic AV fistula. Left palpable radial artery. Palpable pedal pulses Dressing intact left foot Laboratory Results 10/06/19 08:52: S.aureus Protein A PCR Cancelled, MRSA (PCR) Cancelled 10/06/19 12:06: WBC 9.5, RBC 3.48 L, Hgb 10.7 L, Hct 32.1 L, MCV 92.2, MCH 30.7, MCHC 33.3, RDW Std Deviation 39.3, RDW Coeff of Tomy 11.6, Plt Count 167, MPV 10.3, Immature Gran % (Auto) 0.400, Neut % (Auto) 80.7 H, Lymph % (Auto) 10.3 L, [place] % (Auto) 8.1, Eos % (Auto) 0.3, Baso % (Auto) 0.2, Absolute Neuts (auto) 7.7, Absolute Lymphs (auto) 0.98, Nucleated RBC % 0, ESR 43 H 10/06/19 12:06: C-React Prot Ext Range 69.90 H 10/06/19 12:06: Creatinine 6.97 H, Estim Creat Clear Calc 12.27, Est GFR (MDRD) Af Amer 11 L, Est GFR (MDRD) Non-Af 9 L 10/06/19 14:18: POC Glucose 292 H 10/06/19 14:20: S.aureus Protein A PCR POSITIVE H, MRSA (PCR) POSITIVE H 10/06/19 16:47: POC Glucose 90 10/06/19 23:44: POC Glucose 182 H 10/07/19 05:00: WBC 8.9, RBC 3.26 L, Hgb 10.2 L, Hct 30.1 L, MCV 92.3, MCH 31.3, MCHC 33.9, RDW Std Deviation 39.1, RDW Coeff of Tomy 11.5 L, Plt Count 169, MPV 10.2, Immature Gran % (Auto) 0.400, Neut % (Auto) 72.2 H, Lymph % (Auto) 16.8 L, [place] % (Auto) 8.8, Eos % (Auto) 1.6, Baso % (Auto) 0.2, Absolute Neuts (auto) 6.4, Absolute Lymphs (auto) 1.50, Nucleated RBC % 0 10/07/19 05:00: Sodium 135 L, Potassium 4.2, Chloride 98, Carbon Dioxide 30.0, Anion Gap 7, BUN 58 H, Creatinine 8.45 H*, Estim Creat Clear Calc 10.12, Est GFR (MDRD) Af Amer 9 L, Est GFR (MDRD) Non-Af 7 L, BUN/Creatinine Ratio 6.9 L, Glucose 198 H, Calcium 8.1 L, Total Bilirubin 0.30, AST 19, ALT 47, Alkaline Phosphatase 132 H, Total Protein 7.1, Albumin 3.0 L, Globulin 4.1, Albumin/Globulin Ratio 0.7 L 10/07/19 06:47: POC Glucose 171 H Current Medications Acetaminophen (Tylenol) 650 mg PO Q6H PRN PRN PRN Reason: Pain Score 1-3 /Temp>100.7 Albuterol Sulfate (Ventolin Aerosols) 2.5 mg INHALATION Q2H PRN PRN PRN Reason: Shortness of Breath/Wheezing Amlodipine Besylate (Norvasc) 10 mg PO DAILY [facility] Aspirin (Aspirin, Baby) 81 mg PO DAILY@0800 [facility] Atenolol (Tenormin (Beta Silvana)) 100 mg PO DAILY [facility] Atorvastatin Calcium (Lipitor) 20 mg PO QHS [facility] Last Admin: 10/06/19 23:35 Dose: 20 mg Documented by: Bupropion HCl (Wellbutrin Xl) 300 mg PO DAILY [facility] Calcitriol (Rocaltrol) 0.5 mcg PO DAILY [facility] Calcium Acetate (Phoslo Gel Cap) 667 mg PO TIDCM [facility] Last Admin: 10/07/19 07:52 Dose: 667 mg Documented by: Cephalexin (Keflex) 500 mg PO DAILY [facility] Docusate Sodium (Colace) 200 mg PO BID PRN PRN PRN Reason: Constipation Famotidine (Pepcid) 20 mg PO DAILY [facility] Furosemide (Lasix) 80 mg PO BID@1000,1800 [facility] Last Admin: 10/06/19 17:02 Dose: 80 mg Documented by: Gabapentin (Neurontin) 300 mg PO TIDCM [facility] Last Admin: 10/07/19 07:51 Dose: 300 mg Documented by: Glucagon () 1 mg IM .X1 PRN PRN Reason: Hypoglycemia Heparin Sodium (Porcine) (Heparin Na) 5,000 unit SC Q12 [facility] Last Admin: 10/06/19 23:34 Dose: 5,000 unit Documented by: Hydralazine HCl (Apresoline) 25 mg PO TID [facility] Last Admin: 10/07/19 06:44 Dose: 25 mg Documented by: Sodium Chloride () 250 mls @ 15 mls/hr IV .[id number] PRN PRN Reason: Saline Flush Last Infusion: 10/06/19 14:14 Dose: 0 mls/hr Documented by: Sodium Chloride () 250 mls @ 15 mls/hr IV .[id number] PRN PRN Reason: Additional IVPB Infusion Dextrose (Dextrose 10%-Water) 250 mls @ 999 mls/hr IV .Q16M PRN; Protocol PRN Reason: HYPOGLYCEMIA Vancomycin IV Pharmacy to Dose (1 ea/ Sodium Chloride) 500 mls @ 250 mls/hr IV X1 PRN; Protocol PRN Reason: Rx to Dose Vancomycin HCl 750 mg/ Sodium (Chloride) 265 mls @ 250 mls/hr IV X1 ONE Stop: 10/07/19 17:03 Insulin Glargine (Lantus (Bkc)) 2 units SC QHS [facility] Last Admin: 10/06/19 23:47 Dose: 2 u Documented by: Insulin Human Lispro (Humalog Kwikpen (Bkc)) 0 unit SC ACHS [facility]; Protocol Last Admin: 10/07/19 06:45 Dose: 2 units Documented by: Melatonin (Melatonin) 3 mg PO QHS PRN PRN PRN Reason: INSOMNIA Nutritional Formula (Juan - [place] Flavor) 1 packet PO BIDCM [facility] Last Admin: 10/07/19 07:51 Dose: 1 packet Documented by: Ondansetron HCl (Zofran) 4 mg IV Q8H PRN PRN PRN Reason: Nausea Oxycodone HCl (Oxyir) 5 mg PO Q4H PRN PRN PRN Reason: Pain Score 4-5/10 Sodium Chloride () 10 - 40 ml IV UD PRN PRN Reason: SALINE FLUSH Last Admin: 10/06/19 14:16 Dose: 20 ml Documented by: Tamsulosin HCl (Flomax) 0.4 mg PO DAILY [facility] Assessment/Plan All Active Problems (Last Reviewed 10/07/19 @ 10:55 by Conner Phillips MD) Dyspnea (Resolved) Pulmonary edema (Resolved) Cellulitis of left lower limb (Acute) 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 exposed (Acute) Problem with dialysis access (Resolved) Anasarca associated with disorder of kidney (Resolved) Retention, urine (Resolved) Acute on chronic diastolic CHF (congestive heart failure) (Resolved) Acute hypoxemic respiratory failure (Ruled-out) Hypoglycemia (Resolved) Acute respiratory failure with hypoxia (Ruled-out) ILDA (acute kidney injury) (Ruled-out) Right leg pain (Resolved) Chronic ulcer of 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 (Resolved) Cellulitis and abscess of right leg (Resolved) Hypertensive emergency (Resolved) Hypokalemia (Resolved) Patient with longstanding diabetes and hypertension with end-stage renal disease. He has calcifications throughout the vasculature with noncompressibility. But he has triphasic flow through this and adequate digit brachial index of both feet. He should have enough perfusion to build to heal any type of interventions needed. From a podiatry standpoint. No vascular surgery intervention is needed. We will just follow as needed. See him back in 1 year with repeat ABIs
--- NOTE | 2019-10-07 11:02 | NURSING ---
dialysis in progress with JUAN PABLO [facility]om[facility]
--- NOTE | 2019-10-07 11:56 | PN.RENAL_ITS ---
Patient Problems: Active and Suspected Problems (Last Reviewed 10/07/19 @ 10:55 by Conner Phillips MD) Cellulitis of left lower limb (Acute) 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 exposed (Acute) Subjective: currently on dialysis. No complaints. Isolation for GNR, MRSA infection of left foot - Physical Exam Vitals/I&O's: Vital Signs Temp Pulse Resp BP Pulse Ox 97.8 F 76 14 146/73 H 97 10/07/19 10:50 10/07/19 10:50 10/07/19 10:50 10/07/19 10:50 10/07/19 10:50 Oxygen Delivery Method Room Air Weight: 96.6 kg Body Mass Index (BMI) 32.3 Finger Stick Blood Glucose 149 Intake and Output for Last 24 Hours 10/05/19 10/06/19 10/07/19 23:59 23:59 23:59 Intake Total 1130 / 1230 400 / 400 Balance 1130 / 1230 400 / 400 General: Alert, Oriented x3, Cooperative Extremities: No edema Skin: - - left foot cellulitis wrapped Psych/Mental Status: Normal Affect, Alert and oriented to time, place, person, mood and affect Microbiology Past 72 Hours 10/06/19 14:20 Wound - Left Foot Wound Culture - Preliminary Gram negative hector Staphylococcus aureus Laboratory Results 10/06/19 08:52: S.aureus Protein A PCR Cancelled, MRSA (PCR) Cancelled 10/06/19 12:06: WBC 9.5, RBC 3.48 L, Hgb 10.7 L, Hct 32.1 L, MCV 92.2, MCH 30.7, MCHC 33.3, RDW Std Deviation 39.3, RDW Coeff of Tomy 11.6, Plt Count 167, MPV 10 .3, Immature Gran % (Auto) 0.400, Neut % (Auto) 80.7 H, Lymph % (Auto) 10.3 L, [place] % (Auto) 8.1, Eos % (Auto) 0.3, Baso % (Auto) 0.2, Absolute Neuts (auto) 7.7, Absolute Lymphs (auto) 0.98, Nucleated RBC % 0, ESR 43 H 10/06/19 12:06: C-React Prot Ext Range 69.90 H 10/06/19 12:06: Creatinine 6.97 H, Estim Creat Clear Calc 12.27, Est GFR (MDRD) Af Amer 11 L, Est GFR (MDRD) Non-Af 9 L 10/06/19 14:18: POC Glucose 292 H 10/06/19 14:20: S.aureus Protein A PCR POSITIVE H, MRSA (PCR) POSITIVE H 10/06/19 16:47: POC Glucose 90 10/06/19 23:44: POC Glucose 182 H 10/07/19 05:00: WBC 8.9, RBC 3.26 L, Hgb 10.2 L, Hct 30.1 L, MCV 92.3, MCH 31.3, MCHC 33.9, RDW Std Deviation 39.1, RDW Coeff of Tomy 11.5 L, Plt Count 169, MPV 10.2, Immature Gran % (Auto) 0.400, Neut % (Auto) 72.2 H, Lymph % (Auto) 16.8 L, [place] % (Auto) 8.8, Eos % (Auto) 1.6, Baso % (Auto) 0.2, Absolute Neuts (auto) 6.4, Absolute Lymphs (auto) 1.50, Nucleated RBC % 0 10/07/19 05:00: Sodium 135 L, Potassium 4.2, Chloride 98, Carbon Dioxide 30.0, Anion Gap 7, BUN 58 H, Creatinine 8.45 H*, Estim Creat Clear Calc 10.12, Est GFR (MDRD) Af Amer 9 L, Est GFR (MDRD) Non-Af 7 L, BUN/Creatinine Ratio 6.9 L, Glucose 198 H, Calcium 8.1 L, Total Bilirubin 0.30, AST 19, ALT 47, Alkaline Phosphatase 132 H, Total Protein 7.1, Albumin 3.0 L, Globulin 4.1, Albumin/Globulin Ratio 0.7 L 10/07/19 06:47: POC Glucose 171 H Current Medications Acetaminophen (Tylenol) 650 mg PO Q6H PRN PRN PRN Reason: Pain Score 1-3 /Temp>100.7 Albuterol Sulfate (Ventolin Aerosols) 2.5 mg INHALATION Q2H PRN PRN PRN Reason: Shortness of Breath/Wheezing Amlodipine Besylate (Norvasc) 10 mg PO DAILY [facility] Aspirin (Aspirin, Baby) 81 mg PO DAILY@0800 [facility] Atenolol (Tenormin (Beta Silvana)) 100 mg PO DAILY [facility] Atorvastatin Calcium (Lipitor) 20 mg PO QHS [facility] Last Admin: 10/06/19 23:35 Dose: 20 mg Documented by: Bupropion HCl (Wellbutrin Xl) 300 mg PO DAILY [facility] Calcitriol (Rocaltrol) 0.5 mcg PO DAILY [facility] Calcium Acetate (Phoslo Gel Cap) 667 mg PO TIDCM [facility] Last Admin: 10/07/19 07:52 Dose: 667 mg Documented by: Cephalexin (Keflex) 500 mg PO DAILY [facility] Docusate Sodium (Colace) 200 mg PO BID PRN PRN PRN Reason: Constipation Famotidine (Pepcid) 20 mg PO DAILY [facility] Furosemide (Lasix) 80 mg PO BID@1000,1800 [facility] Last Admin: 10/06/19 17:02 Dose: 80 mg Documented by: Gabapentin (Neurontin) 300 mg PO TIDCM [facility] Last Admin: 10/07/19 07:51 Dose: 300 mg Documented by: Glucagon () 1 mg IM .X1 PRN PRN Reason: Hypoglycemia Heparin Sodium (Porcine) (Heparin Na) 5,000 unit SC Q12 [facility] Last Admin: 10/06/19 23:34 Dose: 5,000 unit Documented by: Hydralazine HCl (Apresoline) 25 mg PO TID [facility] Last Admin: 10/07/19 06:44 Dose: 25 mg Documented by: Sodium Chloride () 250 mls @ 15 mls/hr IV .[id number] PRN PRN Reason: Saline Flush Last Infusion: 10/06/19 14:14 Dose: 0 mls/hr Documented by: Sodium Chloride () 250 mls @ 15 mls/hr IV .[id number] PRN PRN Reason: Additional IVPB Infusion Dextrose (Dextrose 10%-Water) 250 mls @ 999 mls/hr IV .Q16M PRN; Protocol PRN Reason: HYPOGLYCEMIA Vancomycin IV Pharmacy to Dose (1 ea/ Sodium Chloride) 500 mls @ 250 mls/hr IV X1 PRN; Protocol PRN Reason: Rx to Dose Vancomycin HCl 750 mg/ Sodium (Chloride) 265 mls @ 250 mls/hr IV X1 ONE Stop: 10/07/19 17:03 Insulin Glargine (Lantus (Bkc)) 2 units SC QHS [facility] Last Admin: 10/06/19 23:47 Dose: 2 u Documented by: Insulin Human Lispro (Humalog Kwikpen (Bkc)) 0 unit SC ACHS [facility]; Protocol Last Admin: 10/07/19 06:45 Dose: 2 units Documented by: Melatonin (Melatonin) 3 mg PO QHS PRN PRN PRN Reason: INSOMNIA Nutritional Formula (Juan - [place] Flavor) 1 packet PO BIDCM [facility] Last Admin: 10/07/19 07:51 Dose: 1 packet Documented by: Ondansetron HCl (Zofran) 4 mg IV Q8H PRN PRN PRN Reason: Nausea Oxycodone HCl (Oxyir) 5 mg PO Q4H PRN PRN PRN Reason: Pain Score 4-5/10 Sodium Chloride () 10 - 40 ml IV UD PRN PRN Reason: SALINE FLUSH Last Admin: 10/06/19 14:16 Dose: 20 ml Documented by: Tamsulosin HCl (Flomax) 0.4 mg PO DAILY [facility] Medical Necessity - Tobacco Use Smoking Status: Never smoker Tobacco Use: Chew Assessment/Plan All Active Problems (Last Reviewed 10/07/19 @ 10:55 by Conner Phillips MD) Dyspnea (Resolved) Pulmonary edema (Resolved) Cellulitis of left lower limb (Acute) 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 exposed (Acute) Problem with dialysis access (Resolved) Anasarca associated with disorder of kidney (Resolved) Retention, urine (Resolved) Acute on chronic diastolic CHF (congestive heart failure) (Resolved) Acute hypoxemic respiratory failure (Ruled-out) Hypoglycemia (Resolved) Acute respiratory failure with hypoxia (Ruled-out) ILDA (acute kidney injury) (Ruled-out) Right leg pain (Resolved) Chronic ulcer of 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 (Resolved) Cellulitis and abscess of right leg (Resolved) Hypertensive emergency (Resolved) Hypokalemia (Resolved) 1. ESRD currently on hemodialysis w/o incident 2. Diabetic foot infection MRSA. Check vanco level. 3. DM type II with history noncompliance 4. Hypertension BP stable
--- NOTE | 2019-10-07 12:26 | CASEMGMT ---
RN CM Assessment Note Presentation: Cellulitis of LL limb Intro role of CM and purpose of RN CM assessment to patient in room. Pt is sleepy, but awakens and able to participate in assessment. Demographics, PCP and Pharmacy verified. Reviewed assessment from previous admission. Pt denies any changes. Pt denies care needs. -ID and wound nurse consult. Dr. Pizano dispensed surgical shoe and recommends heel weightbearing status. Pt states he uses cane. PCP: Dr. Mcneil Specialists: Dr. Montiel, nephrology Preferred [facility]acy: [facility] Insurance: [employer] [facility] Prescription Benefit: yes Dialysis: [facility] MW second shift. Pt states he uses [facility] for transportation. LNOK: Ying Amin, DAVID Living Arrangements: Lives in 2 story home, 13 steps to enter home. Pt states he is independent, uses cane only. No care needs per patient. Transportation: Significant other or [facility] for dialysis DME: cane, cpap HHC/SNF: none Patient DC goals: Home DC PLAN: Home. Awaiting ID and wound nurse recommendations for dc. If dressing changes/IV antibiotics needed, will need scripts and supplies ordered prior to dc. Shy STERLINGN RN ACM
--- NOTE | 2019-10-07 13:26 | CASEMGMT ---
LW/POA forms both scanned into summary tab of [facility], Ying Amin is listed as pt's medical POA. MATTHEW Rodriguez
--- NOTE | 2019-10-07 14:44 | PCM.HP.ID ---
Problem List (1) Cellulitis of left lower limb Status: Acute Reason for Consult: foot infection Consulted by: Dr. Pizano History of Present Illness: The patient is a 48 year old M with DM, presented with 5 days of progressive L foot blistering, ulceration, pain, redness. saw blistering on his foot, no known inciting events. No fever or chills. Came to ED 10/06, admitted on vanc/keflex. Seen by Dr. Phillips. No issues with RUE fistula. Full ROS performed and neg except as noted above. - Medical History Past Medical History (Chronic Problems): Chronic Problems (Last Reviewed 10/07/19 @ 10:55 by Conner Phillips MD) Ectopic cardiac beats (Chronic) Chronic renal failure, stage 5 (Chronic) Other specified peripheral vascular diseases (Chronic) Type 2 diabetes mellitus with diabetic polyneuropathy (Chronic) Atherosclerotic heart disease of [place] coronary artery without angina pectoris (Chronic) Per cath 06/26/11- LAD 10% ostial stenosis, 10% proximal, 20-30% distal stenosis, Ramus 10-20% mid stenosis, OM1 20-30% mid stenosis Essential hypertension (Chronic) Anemia of chronic renal failure, stage 4 (severe) (Chronic) Chronic renal failure, stage 4 (severe) (Chronic) Is currently following with nephrology. Also following with urology. Is trying to follow his low protein diet and feels he is doing well with it. Obesity (BMI 30-39.9) (Chronic) Noncompliance (Chronic) Diabetic neuropathy (Chronic) Diabetic nephropathy (Chronic) Diabetic retinopathy (Chronic) HLD (hyperlipidemia) (Chronic) Blind left eye (Chronic) Diabetes mellitus type II, uncontrolled (Chronic) Dx : 1992 Discussed with patient need to check BG in pairs, learn carb counting and then we can determine I/C ratio for him at last visit. is doing well with his diet. He stopped his basalglar. He is willing to start again at lower dose and titrate back up. He will start at 10 units and increase by 2-3 units every 3 days if he is waking with higher BG than he went to bed with. I have also decrease his correction to 1-50 so that he is not going low after correction. I have given he an alternative correction scale to use if he needs less correction when he begins with higer dose of basaglar and finds his current correction may be too strong. On statin On asa Anxiety and depression (Chronic) GERD (gastroesophageal reflux disease) (Chronic) Chewing tobacco nicotine dependence (Chronic) History of acute myocardial infarction (Chronic) Allergies/Adverse Reactions: Allergies No Known Allergies Allergy (Verified 10/01/19 19:58) Home Medications: Ambulatory Orders Medication Instructions Recorded Gabapentin [Neurontin] 300 mg PO TIDCM 07/15/13 Atorvastatin Calcium [Lipitor] 20 mg PO QHS 11/19/17 Atenolol [Tenormin (beta elizabeth)] 100 mg PO DAILY 11/28/17 tamsulosin 0.4 mg capsule 0.4 mg PO DAILY cap 01/20/18 insulin glargine 100 unit/mL (3 2 unit SQ QHS ml 07/11/18 mL) subcutaneous pen Calcitriol [Rocaltrol] 0.5 mcg PO DAILY 08/04/18 Aspirin [Aspirin, Baby] 81 mg PO DAILY@0800 08/21/18 Calcium Acetate [Phoslo Gel Cap] 667 mg PO TIDCM #90 cap 08/25/18 Acetaminophen [Tylenol] 1,000 mg PO Q6H PRN PRN 08/26/18 Bupropion HCl [Bupropion Xl] 300 mg PO DAILY 08/26/18 Amlodipine [Norvasc] 10 mg PO DAILY #0 08/29/18 Cephalexin [Keflex] 500 mg PO Q6 10/06/19 Furosemide [Lasix] 80 mg PO BID@1000,1800 10/06/19 Hydralazine HCl 25 mg PO TID 10/06/19 Insulin Lispro [Humalog KwikPen] See Protocol SQ ACHS 10/06/19 - Social History Tobacco Use: non-smoker Vital Signs Temp Pulse Resp BP Pulse Ox 97.8 F 76 14 146/73 H 97 10/07/19 10:50 10/07/19 10:50 10/07/19 10:50 10/07/19 10:50 10/07/19 10:50 Oxygen Delivery Method Room Air Weight: 96.6 kg Body Mass Index (BMI) 32.3 Finger Stick Blood Glucose 149 Microbiology Past 72 Hours 10/06/19 14:20 Gram Stain - Final Wound - Left Foot Wound Culture - Preliminary Gram negative hector Staphylococcus aureus Laboratory Tests Past 24 Hrs 10/06/19 10/06/19 10/07/19 08:52 14:20 05:00 WBC 8.9 RBC 3.26 L Hgb 10.2 L Hct 30.1 L MCV 92.3 MCH 31.3 MCHC 33.9 RDW Std Deviation 39.1 RDW Coeff of Tomy 11.5 L Plt Count 169 MPV 10.2 Immature Gran % (Auto) 0.400 Neut % (Auto) 72.2 H Lymph % (Auto) 16.8 L [place] % (Auto) 8.8 Eos % (Auto) 1.6 Baso % (Auto) 0.2 Absolute Neuts (auto) 6.4 Absolute Lymphs (auto) 1.50 Nucleated RBC % 0 Sodium Potassium Chloride Carbon Dioxide Anion Gap BUN Creatinine Estim Creat Clear Calc Est GFR (MDRD) Af Amer Est GFR (MDRD) Non-Af BUN/Creatinine Ratio Glucose Calcium Total Bilirubin AST ALT Alkaline Phosphatase Total Protein Albumin Globulin Albumin/Globulin Ratio S.aureus Protein A PCR Cancelled POSITIVE H MRSA (PCR) Cancelled POSITIVE H 10/07/19 05:00 WBC RBC Hgb Hct MCV MCH MCHC RDW Std Deviation RDW Coeff of Tomy Plt Count MPV Immature Gran % (Auto) Neut % (Auto) Lymph % (Auto) [place] % (Auto) Eos % (Auto) Baso % (Auto) Absolute Neuts (auto) Absolute Lymphs (auto) Nucleated RBC % Sodium 135 L Potassium 4.2 Chloride 98 Carbon Dioxide 30.0 Anion Gap 7 BUN 58 H Creatinine 8.45 H* Estim Creat Clear Calc 10.12 Est GFR (MDRD) Af Amer 9 L Est GFR (MDRD) Non-Af 7 L BUN/Creatinine Ratio 6.9 L Glucose 198 H Calcium 8.1 L Total Bilirubin 0.30 AST 19 ALT 47 Alkaline Phosphatase 132 H Total Protein 7.1 Albumin 3.0 L Globulin 4.1 Albumin/Globulin Ratio 0.7 L S.aureus Protein A PCR MRSA (PCR) - Other Studies Radiology: [] reviewed Other Studies: [] Route of nutrition/ use of supplements: [] Nutritional Intake: [] IV Site: [] Sky Catheter: [] - Physical Exam General: Alert, Oriented x3, Cooperative, No apparent distress HEENT: Atraumatic, PERRLA, EOMI Neck: Supple, No Nodes Lungs: Clear to auscultation, Normal air movement Cardiovascular: Regular rate, Regular Rhythm Abdomen: Soft, Non Tender, Non-Distended Extremities: No edema Skin: Ulcer/ Wound - reviewed photo L foot IV Site: Peripheral, without redness Musculoskeletal: No Tenderness to Palpation of Joints or Extremities Neurological: Cranial nerves II-XII grossly intact - Assessment/Plan Antibiotics: [] Assessment/Plan: [] Active and Suspected Problems (Last Reviewed 10/07/19 @ 10:55 by Conner Phillips MD) Cellulitis of left lower limb (Acute) 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 exposed (Acute) ESRD and DM with acute onset of L foot infection. Wound cx with staph and possible pseudomonas per micro lab. PCR (+) MRSA. On vanc, will change keflex to cefepime/flagyl. Will order MRI without contrast. Will follow. Thank you.
--- NOTE | 2019-10-07 14:47 | MRI_ITS ---
STUDY: MRI LEFT FOREFOOT WITHOUT CONTRAST REASON FOR EXAM: Male, 48 years old. LEFT FOOT INFECTION -- open wounds/ blisters top of 2nd - 5th toes, no injury, diabetic , on renal dialysis -- Patient unable to hold still. TECHNIQUE: Standardized fat and water weighted pulse sequences were obtained in all 3 orthogonal planes. COMPARISON: None. FINDINGS: Normal metatarsophalangeal joint of the hallux. Normal tibial and fibular sesamoids, with normal sesamoids-first metatarsal articulations. Normal interphalangeal joint of the hallux. Normal proximal and distal phalanges of the great toe. Normal medial and lateral heads of the flexor hallucis brevis tendons. Normal flexor and extensor hallucis longus tendons. Normal second through fifth metatarsophalangeal (MTP) joints. Normal interphalangeal joints of the second through fifth toes. There is soft tissue swelling of the toes. There is marrow edema of the distal phalanges of the fourth and fifth toes, series 7 images 8/30 and 5/30. Normal first through fourth intermetatarsal spaces. Normal flexor and extensor tendons of the second through fifth toes. Normal visualized metatarsi. Normal intrinsic muscles of the forefoot. MRI/Lower Ext/No Jt/w/o IMPRESSION: Marrow edema consistent osteomyelitis of the distal phalanges of the fourth and fifth toes. Soft tissue swelling. Electronically Signed: Meliton Esparza MD at 16:22 EST , Service support ,
--- NOTE | 2019-10-07 15:08 | DIALYSIS ---
Pt tolerated 4hr HD tx well. Net UF -4000ml. See flow record for tx data.
--- NOTE | 2019-10-07 15:36 | NURSING ---
PT TAKEN DIRECTLY FROM DIALYSIS TO MRI-- LUNCH ORDERED BUT HAS NOT ARRIVED. AWAITING PT RETURN.
[2019-10-07] MEDS: Calcitriol 0.25 MCG Capsule 0.5 MCG PO (16:25)
[2019-10-07] MEDS: buPROPion (XL) 300 MG TABLET.XL PO (16:26)
[2019-10-07] MEDS: amLODIPine 10 MG Tablet PO (16:27)
[2019-10-07] MEDS: Aspirin 81 MG TAB.CHEW PO (16:27)
[2019-10-07] MEDS: Tamsulosin HCl 0.4 MG Capsule PO (16:27)
[2019-10-07] MEDS: Famotidine 20 MG Tablet PO (16:27)
[2019-10-07] MEDS: Atenolol 100 MG Tablet PO (16:27)
[2019-10-07] MEDS: Heparin 10,000 UNITS/10 ML Vial 7600 UNITS IV (16:28)
[2019-10-07] MEDS: metroNIDAZOLE 500 MG Tablet PO ×2 (16:28→22:55)
[2019-10-07] MEDS: Furosemide 80 MG Tablet PO (16:36)
[2019-10-07] MEDS: 0.9% Saline Lock 10 ML Syringe IV (16:37)
[2019-10-07 16:56] LABS: Bedside Glucose 154 mg/dL (70-110)
--- NOTE | 2019-10-07 17:56 | PCM.PROGNOTE ---
Patient Problems: Active and Suspected Problems (Last Reviewed 10/07/19 @ 10:55 by Conner Phillips MD) Cellulitis of left lower limb (Acute) 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 exposed (Acute) Subjective: Patient was seen today for follow up on left foot. He had MRI, bone marrow edema to 4th and 5th toes. Patient on antibiotics per Dr. Nava. Dr. Phillips saw patient and appears to have good enough blood flow to heal to foot. Patient resting comfortably in bed, about to eat dinner. No new complaints. No complaints of fever, chills, nausea or vomiting. - Physical Exam Vitals/I&O's: Vital Signs Temp Pulse Resp BP Pulse Ox 97.7 F L 71 18 147/80 H 100 10/07/19 16:30 10/07/19 16:30 10/07/19 16:30 10/07/19 16:30 10/07/19 16:30 Oxygen Delivery Method Room Air Weight: 96.6 kg Body Mass Index (BMI) 32.3 Finger Stick Blood Glucose 149 Intake and Output for Last 24 Hours 10/05/19 10/06/19 10/07/19 23:59 23:59 23:59 Intake Total 1130 / 1230 880 / 880 Output Total 4000 / 4000 Balance 1130 / 1230 -3120 / -3120 General: Alert, Oriented x3, Cooperative, No apparent distress Extremities: - - Left foot: Wounds to the lesser toes - lateral 2nd toe, dorsal 3-5 toes with granular tissue, some fibrotic nonviable tissue, there is resolving cellulitis to the forefoot, no exposed bone or probing to bone or joint, the ulcerations are down to the subcutaneous tissue. Improvement noted compared to yesterday. No POP or pain on ROM to the foot/ankle, left but patient does have significant lower extremity peripheral neuropathy which is chronic. Psych/Mental Status: Normal Affect, Alert and oriented to time, place, person, mood and affect Microbiology Past 72 Hours 10/06/19 14:20 Wound - Left Foot Gram Stain - Final 10/06/19 14:20 Wound - Left Foot Wound Culture - Preliminary Gram negative hector Staphylococcus aureus Laboratory Results 10/06/19 08:52: S.aureus Protein A PCR Cancelled, MRSA (PCR) Cancelled 10/06/19 14:20: S.aureus Protein A PCR POSITIVE H, MRSA (PCR) POSITIVE H 10/06/19 16:47: POC Glucose 90 10/06/19 23:44: POC Glucose 182 H 10/07/19 05:00: WBC 8.9, RBC 3.26 L, Hgb 10.2 L, Hct 30.1 L, MCV 92.3, MCH 31.3, MCHC 33.9, RDW Std Deviation 39.1, RDW Coeff of Tomy 11.5 L, Plt Count 169, MPV 10.2, Immature Gran % (Auto) 0.400, Neut % (Auto) 72.2 H, Lymph % (Auto) 16.8 L, [place] % (Auto) 8.8, Eos % (Auto) 1.6, Baso % (Auto) 0.2, Absolute Neuts (auto) 6.4, Absolute Lymphs (auto) 1.50, Nucleated RBC % 0 10/07/19 05:00: Sodium 135 L, Potassium 4.2, Chloride 98, Carbon Dioxide 30.0, Anion Gap 7, BUN 58 H, Creatinine 8.45 H*, Estim Creat Clear Calc 10.12, Est GFR (MDRD) Af Amer 9 L, Est GFR (MDRD) Non-Af 7 L, BUN/Creatinine Ratio 6.9 L, Glucose 198 H, Calcium 8.1 L, Total Bilirubin 0.30, AST 19, ALT 47, Alkaline Phosphatase 132 H, Total Protein 7.1, Albumin 3.0 L, Globulin 4.1, Albumin/Globulin Ratio 0.7 L 10/07/19 06:47: POC Glucose 171 H 10/07/19 16:22: POC Glucose 154 H Current Medications Acetaminophen (Tylenol) 650 mg PO Q6H PRN PRN PRN Reason: Pain Score 1-3 /Temp>100.7 Albuterol Sulfate (Ventolin Aerosols) 2.5 mg INHALATION Q2H PRN PRN PRN Reason: Shortness of Breath/Wheezing Amlodipine Besylate (Norvasc) 10 mg PO DAILY [facility] Last Admin: 10/07/19 16:27 Dose: 10 mg Documented by: Aspirin (Aspirin, Baby) 81 mg PO DAILY@0800 [facility] Last Admin: 10/07/19 16:27 Dose: 81 mg Documented by: Atenolol (Tenormin (Beta Silvana)) 100 mg PO DAILY [facility] Last Admin: 10/07/19 16:27 Dose: 100 mg Documented by: Atorvastatin Calcium (Lipitor) 20 mg PO QHS [facility] Last Admin: 10/06/19 23:35 Dose: 20 mg Documented by: Bupropion HCl (Wellbutrin Xl) 300 mg PO DAILY [facility] Last Admin: 10/07/19 16:26 Dose: 300 mg Documented by: Calcitriol (Rocaltrol) 0.5 mcg PO DAILY [facility] Last Admin: 10/07/19 16:25 Dose: 0.5 mcg Documented by: Calcium Acetate (Phoslo Gel Cap) 667 mg PO TIDCM [facility] Last Admin: 10/07/19 16:27 Dose: 667 mg Documented by: Docusate Sodium (Colace) 200 mg PO BID PRN PRN PRN Reason: Constipation Famotidine (Pepcid) 20 mg PO DAILY [facility] Last Admin: 10/07/19 16:27 Dose: 20 mg Documented by: Furosemide (Lasix) 80 mg PO BID@1000,1800 [facility] Last Admin: 10/07/19 16:36 Dose: 80 mg Documented by: Gabapentin (Neurontin) 300 mg PO TIDCM [facility] Last Admin: 10/07/19 16:35 Dose: Not Given Documented by: Glucagon () 1 mg IM .X1 PRN PRN Reason: Hypoglycemia Heparin Sodium (Porcine) (Heparin Na) 5,000 unit SC Q12 [facility] Last Admin: 10/07/19 15:40 Dose: Not Given Documented by: Hydralazine HCl (Apresoline) 25 mg PO TID [facility] Last Admin: 10/07/19 16:28 Dose: Not Given Documented by: Sodium Chloride () 250 mls @ 15 mls/hr IV .[id number] PRN PRN Reason: Saline Flush Last Admin: 10/07/19 16:31 Dose: 15 mls/hr Documented by: Sodium Chloride () 250 mls @ 15 mls/hr IV .[id number] PRN PRN Reason: Additional IVPB Infusion Dextrose (Dextrose 10%-Water) 250 mls @ 999 mls/hr IV .Q16M PRN; Protocol PRN Reason: HYPOGLYCEMIA Vancomycin IV Pharmacy to Dose (1 ea/ Sodium Chloride) 500 mls @ 250 mls/hr IV X1 PRN; Protocol PRN Reason: Rx to Dose Cefepime HCl 1 gm/ Sodium (Chloride) 50 mls @ 100 mls/hr IV Q24 [facility] Last Admin: 10/07/19 16:30 Dose: 100 mls/hr Documented by: Insulin Glargine (Lantus (Bkc)) 2 units SC QHS [facility] Last Admin: 10/06/19 23:47 Dose: 2 u Documented by: Insulin Human Lispro (Humalog Kwikpen ([facility])) 0 unit SC ACHS [facility]; Protocol Last Admin: 10/07/19 16:23 Dose: Not Given Documented by: Melatonin (Melatonin) 3 mg PO QHS PRN PRN PRN Reason: INSOMNIA Metronidazole (Flagyl) 500 mg PO TID [facility] Last Admin: 10/07/19 16:28 Dose: 500 mg Documented by: Nutritional Formula (Juan - [place] Flavor) 1 packet PO BIDCM [facility] Last Admin: 10/07/19 16:35 Dose: 1 packet Documented by: Ondansetron HCl (Zofran) 4 mg IV Q8H PRN PRN PRN Reason: Nausea Oxycodone HCl (Oxyir) 5 mg PO Q4H PRN PRN PRN Reason: Pain Score 4-5/10 Sodium Chloride () 10 - 40 ml IV UD PRN PRN Reason: SALINE FLUSH Last Admin: 10/07/19 16:37 Dose: 10 ml Documented by: Tamsulosin HCl (Flomax) 0.4 mg PO DAILY [facility] Last Admin: 10/07/19 16:27 Dose: 0.4 mg Documented by: Medical Necessity - Tobacco Use Smoking Status: Never smoker Tobacco Use: Chew Assessment/Plan All Active Problems (Last Reviewed 10/07/19 @ 10:55 by Conner Phillips MD) Dyspnea (Resolved) Pulmonary edema (Resolved) Cellulitis of left lower limb (Acute) 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 exposed (Acute) Problem with dialysis access (Resolved) Anasarca associated with disorder of kidney (Resolved) Retention, urine (Resolved) Acute on chronic diastolic CHF (congestive heart failure) (Resolved) Acute hypoxemic respiratory failure (Ruled-out) Hypoglycemia (Resolved) Acute respiratory failure with hypoxia (Ruled-out) ILDA (acute kidney injury) (Ruled-out) Right leg pain (Resolved) Chronic ulcer of 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 (Resolved) Cellulitis and abscess of right leg (Resolved) Hypertensive emergency (Resolved) Hypokalemia (Resolved) Left foot wound/blisters with cellulitis infection, osteomyelitis 4th and 5th toes on MRI Diabetes with neuropathy Peripheral vascular disease suspected Chronic kidney disease on hemodialysis Other comorbidities include hypertension, depression, GERD, hyperlipidemia, vision impairment, obesity Reviewed diagnostic data, reviewed culture results - staph aureus (MRSA on DNA PCR) and gram negative hector. Reviewed vascular and ID recommendations. Would like to proceed with limb salvage, continue w/ antibiotics and local wound care. We will continue to monitor and if symptoms worsen surgical intervention may be needed. Wound care: new dressing consisting of Betadine soaked gauze was applied. Continue with surgical shoe. Maintain a heel weightbearing status with assistive device. Medical management: medicine team has been consulted and on case. Nephrology also managing dialysis. Greatly appreciate assistance with case.
[2019-10-07 19:05] LABS: Bedside Glucose 291 mg/dL (70-110)
[2019-10-07] MEDS: Heparin Injection (Vial) 5,000 UNIT/ML VIAL 5000 UNIT SC (22:55)
[2019-10-07] MEDS: Atorvastatin Calcium 20 MG Tablet PO (22:56)
[2019-10-07 23:10] LABS: Bedside Glucose 147 mg/dL (70-110)
[2019-10-08] MEDS: Acetaminophen 325 MG Tablet 650 MG PO (03:15)
[2019-10-08 03:17] VITALS: BP 109/70; PULSE 76; RESP 16; TEMP 36.8; O2SAT 98
[2019-10-08] MEDS: Insulin Lispro 100 UNIT/ML INSULN.PEN SC ×2 (06:39→11:45)
[2019-10-08 06:41] VITALS: BP 144/75; PULSE 67
[2019-10-08] MEDS: metroNIDAZOLE 500 MG Tablet PO ×2 (06:41→13:17)
[2019-10-08 06:42] VITALS: BP 144/75; PULSE 67
[2019-10-08] MEDS: hydrALAZINE 25 MG Tablet PO ×2 (06:42→13:15)
[2019-10-08 06:51] LABS: Bedside Glucose 223 mg/dL (70-110)
--- NOTE | 2019-10-08 07:39 | PN_ITS ---
Patient Problems: Active and Suspected Problems (Last Reviewed 10/07/19 @ 10:55 by Conner Phillips MD) Cellulitis of left lower limb (Acute) 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 exposed (Acute) Subjective: Patient was seen this morning for follow up on left foot. He relates he is doing well. No new complaints. No overnight events. No complaints of fever, chills, nausea, vomiting, calf pain or any other complaints at this time. - Physical Exam Vitals/I&O's: Vital Signs Temp Pulse Resp BP Pulse Ox 98.2 F 67 16 144/75 H 98 10/08/19 03:17 10/08/19 06:42 10/08/19 03:17 10/08/19 06:42 10/08/19 03:17 Oxygen Delivery Method Room Air Weight: 96.6 kg Body Mass Index (BMI) 32.3 Finger Stick Blood Glucose 149 Intake and Output for Last 24 Hours 10/06/19 10/07/19 10/08/19 23:59 23:59 23:59 Intake Total 1130 / 1230 1358.25 / 1358.25 Output Total 4000 / 4000 Balance 1130 / 1230 -2641.75 / -2641.75 General: Alert, Oriented x3, Cooperative, No apparent distress Extremities: No Calf Tenderness, - - Wounds to the lesser toes - lateral 2nd toe, dorsal 3-5 toes with granular tissue, some fibrotic nonviable tissue, some macerations, there is resolving cellulitis to the forefoot, no exposed bone or probing to bone or joint, the ulcerations are down to the subcutaneous tissue. Continued improvement noted. No POP or pain on ROM to the foot/ankle, left but patient does have significant lower extremity peripheral neuropathy which is chronic. Musculoskeletal: No Tenderness to Palpation of Joints or Extremities Psych/Mental Status: Appropriate, Alert and oriented to time, place, person, mood and affect Microbiology Past 72 Hours 10/06/19 14:20 Wound - Left Foot Gram Stain - Final 10/06/19 14:20 Wound - Left Foot Wound Culture - Preliminary Gram negative hector Staphylococcus aureus Laboratory Results 10/07/19 16:22: POC Glucose 154 H 10/07/19 18:55: POC Glucose 291 H 10/07/19 22:54: POC Glucose 147 H 10/08/19 06:38: POC Glucose 223 H Current Medications Acetaminophen (Tylenol) 650 mg PO Q6H PRN PRN PRN Reason: Pain Score 1-3 /Temp>100.7 Last Admin: 10/08/19 03:15 Dose: 650 mg Documented by: Albuterol Sulfate (Ventolin Aerosols) 2.5 mg INHALATION Q2H PRN PRN PRN Reason: Shortness of Breath/Wheezing Amlodipine Besylate (Norvasc) 10 mg PO DAILY [facility] Last Admin: 10/07/19 16:27 Dose: 10 mg Documented by: Aspirin (Aspirin, Baby) 81 mg PO DAILY@0800 [facility] Last Admin: 10/07/19 16:27 Dose: 81 mg Documented by: Atenolol (Tenormin (Beta Silvana)) 100 mg PO DAILY [facility] Last Admin: 10/07/19 16:27 Dose: 100 mg Documented by: Atorvastatin Calcium (Lipitor) 20 mg PO QHS [facility] Last Admin: 10/07/19 22:56 Dose: 20 mg Documented by: Bupropion HCl (Wellbutrin Xl) 300 mg PO DAILY [facility] Last Admin: 10/07/19 16:26 Dose: 300 mg Documented by: Calcitriol (Rocaltrol) 0.5 mcg PO DAILY [facility] Last Admin: 10/07/19 16:25 Dose: 0.5 mcg Documented by: Calcium Acetate (Phoslo Gel Cap) 667 mg PO TIDCM [facility] Last Admin: 10/07/19 18:52 Dose: 667 mg Documented by: Docusate Sodium (Colace) 200 mg PO BID PRN PRN PRN Reason: Constipation Famotidine (Pepcid) 20 mg PO DAILY [facility] Last Admin: 10/07/19 16:27 Dose: 20 mg Documented by: Furosemide (Lasix) 80 mg PO BID@1000,1800 [facility] Last Admin: 10/07/19 16:36 Dose: 80 mg Documented by: Gabapentin (Neurontin) 300 mg PO TIDCM [facility] Last Admin: 10/07/19 16:35 Dose: Not Given Documented by: Glucagon () 1 mg IM .X1 PRN PRN Reason: Hypoglycemia Heparin Sodium (Porcine) (Heparin Na) 5,000 unit SC Q12 [facility] Last Admin: 10/07/19 22:55 Dose: 5,000 unit Documented by: Hydralazine HCl (Apresoline) 25 mg PO TID [facility] Last Admin: 10/08/19 06:42 Dose: 25 mg Documented by: Sodium Chloride () 250 mls @ 15 mls/hr IV .[id number] PRN PRN Reason: Saline Flush Last Infusion: 10/07/19 18:59 Dose: 0 mls/hr Documented by: Sodium Chloride () 250 mls @ 15 mls/hr IV .[id number] PRN PRN Reason: Additional IVPB Infusion Dextrose (Dextrose 10%-Water) 250 mls @ 999 mls/hr IV .Q16M PRN; Protocol PRN Reason: HYPOGLYCEMIA Vancomycin IV Pharmacy to Dose (1 ea/ Sodium Chloride) 500 mls @ 250 mls/hr IV X1 PRN; Protocol PRN Reason: Rx to Dose Cefepime HCl 1 gm/ Sodium (Chloride) 50 mls @ 100 mls/hr IV Q24 [facility] Last Infusion: 10/07/19 17:00 Dose: Infused Documented by: Insulin Glargine (Lantus (Bkc)) 2 units SC QHS [facility] Last Admin: 10/07/19 22:57 Dose: 2 u Documented by: Insulin Human Lispro (Humalog Kwikpen (Bk)) 0 unit SC ACHS [facility]; Protocol Last Admin: 10/08/19 06:39 Dose: 4 units Documented by: Melatonin (Melatonin) 3 mg PO QHS PRN PRN PRN Reason: INSOMNIA Metronidazole (Flagyl) 500 mg PO TID [facility] Last Admin: 10/08/19 06:41 Dose: 500 mg Documented by: Nutritional Formula (Juan - Early Flavor) 1 packet PO BIDCM [facility] Last Admin: 10/07/19 16:35 Dose: 1 packet Documented by: Ondansetron HCl (Zofran) 4 mg IV Q8H PRN PRN PRN Reason: Nausea Oxycodone HCl (Oxyir) 5 mg PO Q4H PRN PRN PRN Reason: Pain Score 4-5/10 Sodium Chloride () 10 - 40 ml IV UD PRN PRN Reason: SALINE FLUSH Last Admin: 10/07/19 16:37 Dose: 10 ml Documented by: Tamsulosin HCl (Flomax) 0.4 mg PO DAILY [facility] Last Admin: 10/07/19 16:27 Dose: 0.4 mg Documented by: Medical Necessity - Tobacco Use Smoking Status: Never smoker Tobacco Use: Chew Assessment/Plan All Active Problems (Last Reviewed 10/07/19 @ 10:55 by Conner Phillips MD) Dyspnea (Resolved) Pulmonary edema (Resolved) Cellulitis of left lower limb (Acute) 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 exposed (Acute) Problem with dialysis access (Resolved) Anasarca associated with disorder of kidney (Resolved) Retention, urine (Resolved) Acute on chronic diastolic CHF (congestive heart failure) (Resolved) Acute hypoxemic respiratory failure (Ruled-out) Hypoglycemia (Resolved) Acute respiratory failure with hypoxia (Ruled-out) ILDA (acute kidney injury) (Ruled-out) Right leg pain (Resolved) Chronic ulcer of 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 (Resolved) Cellulitis and abscess of right leg (Resolved) Hypertensive emergency (Resolved) Hypokalemia (Resolved) Left foot wound/blisters with cellulitis infection, osteomyelitis 4th and 5th toes on MRI Diabetes with neuropathy Peripheral vascular disease suspected Chronic kidney disease on hemodialysis Other comorbidities include hypertension, depression, GERD, hyperlipidemia, vision impairment, obesity Reviewed diagnostic data, reviewed culture results - staph aureus (MRSA on DNA PCR) and gram negative hector. Reviewed vascular and ID recommendations. Would like to continue to proceed with limb salvage, continue w/ antibiotics and local wound care. We will continue to monitor and if symptoms worsen surgical intervention may be needed. Wound care: Continue with Betadine soaked gauze was applied. Continue with surgical shoe. Maintain a heel weightbearing status with assistive device. Medical management: medicine team has been consulted and on case. Nephrology also managing dialysis. Greatly appreciate assistance with case. Discharging planning: From foot standpoint, ok to go home once home antibiotics are determined.
[2019-10-08] MEDS: Gabapentin 300 MG Capsule PO ×2 (08:52→11:46)
[2019-10-08] MEDS: Aspirin 81 MG TAB.CHEW PO (08:52)
[2019-10-08] MEDS: Tamsulosin HCl 0.4 MG Capsule PO (08:53)
[2019-10-08] MEDS: Calcium Acetate 667 MG Capsule PO ×2 (08:53→11:46)
[2019-10-08] MEDS: Heparin Injection (Vial) 5,000 UNIT/ML VIAL 5000 UNIT SC (08:53)
[2019-10-08] MEDS: Furosemide 80 MG Tablet PO (08:54)
[2019-10-08] MEDS: amLODIPine 10 MG Tablet PO (08:54)
[2019-10-08] MEDS: Calcitriol 0.25 MCG Capsule 0.5 MCG PO (08:55)
[2019-10-08] MEDS: Famotidine 20 MG Tablet PO (08:55)
[2019-10-08] MEDS: buPROPion (XL) 300 MG TABLET.XL PO (08:56)
[2019-10-08 09:08] VITALS: BP 118/69; PULSE 65; RESP 16; TEMP 36.6; O2SAT 98
--- NOTE | 2019-10-08 10:08 | PCM.DC ---
- Discharge Diagnoses Current Active Problems: Current Active and Chronic Problems (Last Reviewed 10/07/19 @ 10:55 by Conner Phillips MD) Cellulitis of left lower limb (Acute) Other specified peripheral vascular diseases (Chronic) 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 exposed (Acute) Type 2 diabetes mellitus with diabetic polyneuropathy (Chronic) You will use the following diet at home:: Calorie/Carbohydrate Controlled (specify 1200, 1400, etc) Your food should be the consistency of: Regular Discharge Activity: May Not Drive Call your doctor if you observe: Fever of 101 or Higher, Coldness, Increased Pain, Numbness or Tingling, Change in Color, Inability to urinate, Inability to have a bowel movement, Shortness of breath, Dizziness, Fainting spells, Swelling in the ankles, Chest pain, Prolonged hiccoughing, Increased palpitations (irregular heartbeat) Allergies/Adverse Reactions: Allergies No Known Allergies Allergy (Verified 10/01/19 19:58) Medications to take at Discharge Gabapentin [Neurontin] 300 mg PO TIDCM 07/15/13 Atorvastatin Calcium [Lipitor] 20 mg PO QHS 11/19/17 Atenolol [Tenormin (beta elizabeth)] 100 mg PO DAILY 11/28/17 tamsulosin 0.4 mg capsule 0.4 mg PO DAILY cap 01/20/18 Calcitriol [Rocaltrol] 0.5 mcg PO DAILY 08/04/18 Aspirin [Aspirin, Baby] 81 mg PO DAILY@0800 08/21/18 Calcium Acetate [Phoslo Gel Cap] 667 mg PO TIDCM #90 cap 08/25/18 Acetaminophen [Tylenol] 1,000 mg PO Q6H PRN PRN 08/26/18 Bupropion HCl [Bupropion Xl] 300 mg PO DAILY 08/26/18 Amlodipine [Norvasc] 10 mg PO DAILY #0 08/29/18 Furosemide [Lasix] 80 mg PO BID@1000,1800 10/06/19 Hydralazine HCl 25 mg PO TID 10/06/19 Insulin Lispro [Humalog KwikPen] See Protocol SQ ACHS 10/06/19 Cefepime HCl [Maxipime] 2 gm IV UD 40 Days #17 vial 10/08/19 Insulin Glargine,Hum.rec.anlog [Basaglar Kwikpen U-100] 8 unit SQ QHS #1 ml 10/08/19 Insulin Lispro [Humalog KwikPen] See Protocol SUBCUT ACHS #1 insuln.pen 10/08/19 Vancomycin/0.9 % Sod Chloride [Vanco 750 mg/150 ml-0.9% NaCl] 750 mg IV UD 40 Days #17 froz.piggy 10/08/19 metroNIDAZOLE [Flagyl] 500 mg PO TID 40 Days #120 tab 10/08/19 The following prescriptions were given: Insulin Glargine,Hum.rec.anlog [Basaglar Kwikpen U-100] 8 unit SQ QHS #1 ml Transmission Status: Pending to [facility] 181 metroNIDAZOLE [Flagyl] 500 mg PO TID 40 Days #120 tab Transmission Status: Received by [facility] 181 Insulin Lispro [Humalog KwikPen] See Protocol SUBCUT ACHS #1 insuln.pen Transmission Status: Pending to [facility] 181 Cefepime HCl [Maxipime] 2 gm IV UD 40 Days #17 vial Prescription Printed Vancomycin/0.9 % Sod Chloride [Vanco 750 mg/150 ml-0.9% NaCl] 750 mg IV UD 40 Days #17 froz.piggy Prescription Printed Primary Care Physician: Zaida Mcneil MD [Primary Care Provider] - Please follow up with your Primary Care Physician in: IN 2 weeks for control of DM-2 Test Results: Test results from this visit will be discussed in further detail at your follow-up appointment, if applicable. Please Follow Up With: Carolina Pizano DPM When: IN 2 WEEKS Please Follow Up With: Satish Nava MD When: IN 2-3 weeks Please Follow Up With: Loida Montiel DO When: for esrd on HD IN 4 WEEK
--- NOTE | 2019-10-08 10:10 | DS.PCM_ITS ---
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 Also following with urology. Is trying to follow his low protein diet and feels he is doing well with it. Obesity (BMI 30-39.9) (Chronic) Noncompliance (Chronic) Diabetic neuropathy (Chronic) Diabetic nephropathy (Chronic) Diabetic retinopathy (Chronic) HLD (hyperlipidemia) (Chronic) Blind left eye (Chronic) Diabetes mellitus type II, uncontrolled (Chronic) Dx : 1992 Discussed with patient need to check BG in pairs, learn carb counting and then we can determine I/C ratio for him at last visit. is doing well with his diet. He stopped his basalglar. He is willing to start again at lower dose and titrate back up. He will start at 10 units and increase by 2-3 units every 3 days if he is waking with higher BG than he went to bed with. I have also decrease his correction to 1-50 so that he is not going low after correction. I have given he an alternative correction scale to use if he needs less correction when he begins with higer dose of basaglar and finds his current correction may be too strong. 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 Diabetic foot infection with left toe ulcer from -, superficial fatty layer exposed with surrounding cellulitis with calcified arteries and lower extremities. ?patient admitted to the services of podiatry medicine. ?MRSA screen came back positive patient is on vancomycin Patient was seen by ID. Patient was started on vancomycin and cefepime and Flagyl. Arterial yesterday shows right ankle noncompressible but normal triphasic flow consistent with medical calcinosis. Left with RANJAN 1.29 suggestive of medial calcinosis. Normal DBI 1.18 and 0.9. Patient was seen by vascular surgeon Dr. Phillips and mention no vascular surgery intervention needed. Advised to follow-up in 1 year with repeat RANJAN Prescription for vancomycin and cefepime and Flagyl was given by ID. Follow-up in clinic. Follow-up in wound center 2. End-stage renal disease ?Patient seen by Dr. Montiel. 3. Diabetes mellitus type II, uncontrolled with complications including diabetic nephropathy resulting in end-stage renal disease ?Did continue patient home regimen in addition to Accu-Cheks before meals and at bedtime with sliding scale coverage Sugar was controlled. Lantus dose was increased to 8 units at bedtime daily. 4. Dyslipidemia ~patient is on statin therapy, continued at home dose 5. Hypertension ~ blood pressure controlled, home medications continued with dose adjustment as needed 6. Diabetic polyneuropathy?patient is on gabapentin did continue 7. Obesity with BMI of 32.4 ?Weight loss advised 8. DVT prophylaxis ?Patient on heparin 9. Diarrhea: Patient had one-time loose bowel movement and does not meet the c riteria for C. difficile. Patient was also seen by ID and huma with continuation of antibiotic. Discharge medication reconciliation done. Discharge follow-up instructions completed. Discharge process discussed with the patient and all questions were answered to patient's satisfaction. Follow-up with ID, podiatry clinic/wound clinic, vascular surgeon and PCP. Total time spent, exact 35 minutes on discharge meds reconciliation, examination, coordination of care with nurses and ancillary staff, review of imaging and blood test and discussion with the patient on follow-up instruct ions Subjective: Seen and examined. Patient had one loose bowel movement yesterday night. Discussed with director of casework department. - Physical Exam Vitals/I&O's: Vital Signs Temp Pulse Resp BP Pulse Ox 97.9 F 65 16 118/69 98 10/08/19 09:08 10/08/19 09:08 10/08/19 09:08 10/08/19 09:08 10/08/19 09:08 Oxygen Delivery Method Room Air Weight: 212 lb 15.465 oz Body Mass Index (BMI) 32.3 Finger Stick Blood Glucose 149 Intake and Output for Last 24 Hours 10/06/19 10/07/19 10/08/19 23:59 23:59 23:59 Intake Total 1130 / 1230 1358.25 / 1358.25 Output Total 4000 / 4000 Balance 1130 / 1230 -2641.75 / -2641.75 General: Alert, Oriented x3, Cooperative HEENT: Atraumatic, PERRLA, EOMI, Normocephalic Neck: Supple, No JVD, Negative Carotid Bruits Lungs: Clear to auscultation, Normal air movement, No rhonchi, No wheeze, No rales Cardiovascular: Regular rate, Regular Rhythm, Normal S1, Normal S2, No murmurs Abdomen: Bowel Sounds Present, Soft, Non Tender, Non-Distended Extremities: No edema, Capillary Refill Less than 3 Seconds Skin: Ulcer/ Wound - Ulcer of left second toe, 3rd-5th toe with surrounding cellulitis. Improving. Musculoskeletal: No Tenderness to Palpation of Joints or Extremities Neurological: Cranial nerves II-XII grossly intact Psych/Mental Status: Normal Affect, Appropriate Microbiology Past 72 Hours 10/06/19 14:20 Wound - Left Foot Gram Stain - Final 10/06/19 14:20 Wound - Left Foot Wound Culture - Final Pseudomonas aeroginosa Meth. resistant Staph. aureus Laboratory Results 10/07/19 16:22: POC Glucose 154 H 10/07/19 18:55: POC Glucose 291 H 10/07/19 22:54: POC Glucose 147 H 10/08/19 06:38: POC Glucose 223 H Current Medications Acetaminophen (Tylenol) 650 mg PO Q6H PRN PRN PRN Reason: Pain Score 1-3 /Temp>100.7 Last Admin: 10/08/19 03:15 Dose: 650 mg Documented by: Albuterol Sulfate (Ventolin Aerosols) 2.5 mg INHALATION Q2H PRN PRN PRN Reason: Shortness of Breath/Wheezing Amlodipine Besylate (Norvasc) 10 mg PO DAILY [facility] Last Admin: 10/08/19 08:54 Dose: 10 mg Documented by: Aspirin (Aspirin, Baby) 81 mg PO DAILY@0800 [facility] Last Admin: 10/08/19 08:52 Dose: 81 mg Documented by: Atenolol (Tenormin (Beta Silvana)) 100 mg PO DAILY [facility] Last Admin: 10/07/19 16:27 Dose: 100 mg Documented by: Atorvastatin Calcium (Lipitor) 20 mg PO QHS [facility] Last Admin: 10/07/19 22:56 Dose: 20 mg Documented by: Bupropion HCl (Wellbutrin Xl) 300 mg PO DAILY [facility] Last Admin: 10/08/19 08:56 Dose: 300 mg Documented by: Calcitriol (Rocaltrol) 0.5 mcg PO DAILY [facility] Last Admin: 10/08/19 08:55 Dose: 0.5 mcg Documented by: Calcium Acetate (Phoslo Gel Cap) 667 mg PO TIDCM [facility] Last Admin: 10/08/19 08:53 Dose: 667 mg Documented by: Docusate Sodium (Colace) 200 mg PO BID PRN PRN PRN Reason: Constipation Famotidine (Pepcid) 20 mg PO DAILY [facility] Last Admin: 10/08/19 08:55 Dose: 20 mg Documented by: Furosemide (Lasix) 80 mg PO BID@1000,1800 [facility] Last Admin: 10/08/19 08:54 Dose: 80 mg Documented by: Gabapentin (Neurontin) 300 mg PO TIDCM [facility] Last Admin: 10/08/19 08:52 Dose: 300 mg Documented by: Glucagon () 1 mg IM .X1 PRN PRN Reason: Hypoglycemia Heparin Sodium (Porcine) (Heparin Na) 5,000 unit SC Q12 [facility] Last Admin: 10/08/19 08:53 Dose: 5,000 unit Documented by: Hydralazine HCl (Apresoline) 25 mg PO TID [facility] Last Admin: 10/08/19 06:42 Dose: 25 mg Documented by: Sodium Chloride () 250 mls @ 15 mls/hr IV .[id number] PRN PRN Reason: Saline Flush Last Infusion: 10/07/19 18:59 Dose: 0 mls/hr Documented by: Sodium Chloride () 250 mls @ 15 mls/hr IV .[id number] PRN PRN Reason: Additional IVPB Infusion Dextrose (Dextrose 10%-Water) 250 mls @ 999 mls/hr IV .Q16M PRN; Protocol PRN Reason: HYPOGLYCEMIA Vancomycin IV Pharmacy to Dose (1 ea/ Sodium Chloride) 500 mls @ 250 mls/hr IV X1 PRN; Protocol PRN Reason: Rx to Dose Cefepime HCl 1 gm/ Sodium (Chloride) 50 mls @ 100 mls/hr IV Q24 [facility] Last Infusion: 10/07/19 17:00 Dose: Infused Documented by: Insulin Glargine (Lantus ([facility])) 2 units SC QHS [facility] Last Admin: 10/07/19 22:57 Dose: 2 u Documented by: Insulin Human Lispro (Humalog Kwikpen ([facility])) 0 unit SC ACHS [facility]; Protocol Last Admin: 10/08/19 06:39 Dose: 4 units Documented by: Melatonin (Melatonin) 3 mg PO QHS PRN PRN PRN Reason: INSOMNIA Metronidazole (Flagyl) 500 mg PO TID [facility] Last Admin: 10/08/19 06:41 Dose: 500 mg Documented by: Nutritional Formula (Juan - [place] Flavor) 1 packet PO BIDCM [facility] Last Admin: 10/08/19 08:52 Dose: 1 packet Documented by: Ondansetron HCl (Zofran) 4 mg IV Q8H PRN PRN PRN Reason: Nausea Oxycodone HCl (Oxyir) 5 mg PO Q4H PRN PRN PRN Reason: Pain Score 4-5/10 Sodium Chloride () 10 - 40 ml IV UD PRN PRN Reason: SALINE FLUSH Last Admin: 10/07/19 16:37 Dose: 10 ml Documented by: Tamsulosin HCl (Flomax) 0.4 mg PO DAILY [facility] Last Admin: 10/08/19 08:53 Dose: 0.4 mg Documented by: Discharge Activity: May Not Drive Call your doctor if you observe: Fever of 101 or Higher, Coldness, Increased Pain, Numbness or Tingling, Change in Color, Inability to urinate, Inability to have a bowel movement, Shortness of breath, Dizziness, Fainting spells, Swelling in the ankles, Chest pain, Prolonged hiccoughing, Increased palpitations (irregular heartbeat) Home Medications: Medications to take at Discharge Gabapentin [Neurontin] 300 mg PO TIDCM 07/15/13 Atorvastatin Calcium [Lipitor] 20 mg PO QHS 11/19/17 Atenolol [Tenormin (beta silvana)] 100 mg PO DAILY 11/28/17 tamsulosin 0.4 mg capsule 0.4 mg PO DAILY cap 01/20/18 Calcitriol [Rocaltrol] 0.5 mcg PO DAILY 08/04/18 Aspirin [Aspirin, Baby] 81 mg PO DAILY@0800 08/21/18 Calcium Acetate [Phoslo Gel Cap] 667 mg PO TIDCM #90 cap 08/25/18 Acetaminophen [Tylenol] 1,000 mg PO Q6H PRN PRN 08/26/18 Bupropion HCl [Bupropion Xl] 300 mg PO DAILY 08/26/18 Amlodipine [Norvasc] 10 mg PO DAILY #0 08/29/18 Furosemide [Lasix] 80 mg PO BID@1000,1800 10/06/19 Hydralazine HCl 25 mg PO TID 10/06/19 Insulin Lispro [Humalog KwikPen] See Protocol SQ ACHS 10/06/19 Cefepime HCl [Maxipime] 2 gm IV UD 40 Days #17 vial 10/08/19 Insulin Glargine,Hum.rec.anlog [Basaglar Kwikpen U-100] 8 unit SQ QHS #1 ml 10/08/19 Insulin Lispro [Humalog KwikPen] See Protocol SUBCUT ACHS #1 insuln.pen 10/08/19 Vancomycin/0.9 % Sod Chloride [Vanco 750 mg/150 ml-0.9% NaCl] 750 mg IV UD 40 Days #17 froz.piggy 10/08/19 metroNIDAZOLE [Flagyl] 500 mg PO TID 40 Days #120 tab 10/08/19 Following Prescrptions Were Given to Patient: Insulin Glargine,Hum.rec.anlog [Basaglar Kwikpen U-100] 8 unit SQ QHS #1 ml Transmission Status: [facility] [id number] metroNIDAZOLE [Flagyl] 500 mg PO TID 40 Days #120 tab Transmission Status: Received by [facility] 181 Insulin Lispro [Humalog KwikPen] See Protocol SUBCUT ACHS #1 insuln.pen Transmission Status: Received by [facility] Cefepime HCl [Maxipime] 2 gm IV UD 40 Days #17 vial Prescription Printed Vancomycin/0.9 % Sod Chloride [Vanco 750 mg/150 ml-0.9% NaCl] 750 mg IV UD 40 Days #17 froz.piggy Prescription Printed Primary Care Physician: Zaida Mcneil MD [Primary Care Provider] - Please follow up with your Primary Care Physician in: [place] 2 weeks for control of DM-2 Please Follow Up With: Carolina Pizano DPM When: IN 2 WEEKS Please Follow Up With: Satish Nava MD When: IN 2-3 weeks Please Follow Up With: Loida Montiel DO When: for esrd on HD IN 4 WEEK Medical Necessity - Tobacco Use Smoking Status: Never smoker Tobacco Use: Chew Meaningful Use Info Meaningful Use Diagnoses (Choose all that apply): None applicable Code Visit Inpatient E&M: 93845 Disch Hosp
--- NOTE | 2019-10-08 10:38 | PCM.PN.ID ---
Patient Problems: Active and Suspected Problems (Last Reviewed 10/07/19 @ 10:55 by Conner Phillips MD) Cellulitis of left lower limb (Acute) 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 exposed (Acute) Subjective: Feeling well, wants to go home. Some diarrhea last night, none since. No fever, no abd pain. - Physical Exam Vitals/I&O's: Vital Signs Temp Pulse Resp BP Pulse Ox 97.9 F 65 16 118/69 98 10/08/19 09:08 10/08/19 09:08 10/08/19 09:08 10/08/19 09:08 10/08/19 09:08 Oxygen Delivery Method Room Air Weight: 96.6 kg Body Mass Index (BMI) 32.3 Finger Stick Blood Glucose 149 Intake and Output for Last 24 Hours 10/06/19 10/07/19 10/08/19 23:59 23:59 23:59 Intake Total 1130 / 1230 1358.25 / 1358.25 Output Total 4000 / 4000 Balance 1130 / 1230 -2641.75 / -2641.75 General: Alert, Cooperative, No apparent distress Lungs: Clear to auscultation, Normal air movement Cardiovascular: Regular rate, Regular Rhythm Abdomen: Soft, Non Tender, Non-Distended Skin: Ulcer/ Wound - reviewed photo Microbiology Past 72 Hours 10/06/19 14:20 Wound - Left Foot Gram Stain - Final 10/06/19 14:20 Wound - Left Foot Wound Culture - Final Pseudomonas aeroginosa Meth. resistant Staph. aureus Laboratory Results 10/07/19 16:22: POC Glucose 154 H 10/07/19 18:55: POC Glucose 291 H 10/07/19 22:54: POC Glucose 147 H 10/08/19 06:38: POC Glucose 223 H Current Medications Acetaminophen (Tylenol) 650 mg PO Q6H PRN PRN PRN Reason: Pain Score 1-3 /Temp>100.7 Last Admin: 10/08/19 03:15 Dose: 650 mg Documented by: Albuterol Sulfate (Ventolin Aerosols) 2.5 mg INHALATION Q2H PRN PRN PRN Reason: Shortness of Breath/Wheezing Amlodipine Besylate (Norvasc) 10 mg PO DAILY HEDY Last Admin: 10/08/19 08:54 Dose: 10 mg Documented by: Aspirin (Aspirin, Baby) 81 mg PO DAILY@0800 [facility] Last Admin: 10/08/19 08:52 Dose: 81 mg Documented by: Atenolol (Tenormin (Beta Silvana)) 100 mg PO DAILY [facility] Last Admin: 10/07/19 16:27 Dose: 100 mg Documented by: Atorvastatin Calcium (Lipitor) 20 mg PO QHS [facility] Last Admin: 10/07/19 22:56 Dose: 20 mg Documented by: Bupropion HCl (Wellbutrin Xl) 300 mg PO DAILY [facility] Last Admin: 10/08/19 08:56 Dose: 300 mg Documented by: Calcitriol (Rocaltrol) 0.5 mcg PO DAILY [facility] Last Admin: 10/08/19 08:55 Dose: 0.5 mcg Documented by: Calcium Acetate (Phoslo Gel Cap) 667 mg PO TIDCM [facility] Last Admin: 10/08/19 08:53 Dose: 667 mg Documented by: Docusate Sodium (Colace) 200 mg PO BID PRN PRN PRN Reason: Constipation Famotidine (Pepcid) 20 mg PO DAILY [facility] Last Admin: 10/08/19 08:55 Dose: 20 mg Documented by: Furosemide (Lasix) 80 mg PO BID@1000,1800 [facility] Last Admin: 10/08/19 08:54 Dose: 80 mg Documented by: Gabapentin (Neurontin) 300 mg PO TIDCM [facility] Last Admin: 10/08/19 08:52 Dose: 300 mg Documented by: Glucagon () 1 mg IM .X1 PRN PRN Reason: Hypoglycemia Heparin Sodium (Porcine) (Heparin Na) 5,000 unit SC Q12 [facility] Last Admin: 10/08/19 08:53 Dose: 5,000 unit Documented by: Hydralazine HCl (Apresoline) 25 mg PO TID [facility] Last Admin: 10/08/19 06:42 Dose: 25 mg Documented by: Sodium Chloride () 250 mls @ 15 mls/hr IV .[id number] PRN PRN Reason: Saline Flush Last Infusion: 10/07/19 18:59 Dose: 0 mls/hr Documented by: Sodium Chloride () 250 mls @ 15 mls/hr IV .[id number] PRN PRN Reason: Additional IVPB Infusion Dextrose (Dextrose 10%-Water) 250 mls @ 999 mls/hr IV .Q16M PRN; Protocol PRN Reason: HYPOGLYCEMIA Vancomycin IV Pharmacy to Dose (1 ea/ Sodium Chloride) 500 mls @ 250 mls/hr IV X1 PRN; Protocol PRN Reason: Rx to Dose Cefepime HCl 1 gm/ Sodium (Chloride) 50 mls @ 100 mls/hr IV Q24 [facility] Last Infusion: 10/07/19 17:00 Dose: Infused Documented by: Insulin Glargine (Lantus (Bkc)) 2 units SC QHS [facility] Last Admin: 10/07/19 22:57 Dose: 2 u Documented by: Insulin Human Lispro (Humalog Kwikpen ([facility])) 0 unit SC ACHS [facility]; Protocol Last Admin: 10/08/19 06:39 Dose: 4 units Documented by: Melatonin (Melatonin) 3 mg PO QHS PRN PRN PRN Reason: INSOMNIA Metronidazole (Flagyl) 500 mg PO TID [facility] Last Admin: 10/08/19 06:41 Dose: 500 mg Documented by: Nutritional Formula (Juan - Exira Flavor) 1 packet PO BIDCM [facility] Last Admin: 10/08/19 08:52 Dose: 1 packet Documented by: Ondansetron HCl (Zofran) 4 mg IV Q8H PRN PRN PRN Reason: Nausea Oxycodone HCl (Oxyir) 5 mg PO Q4H PRN PRN PRN Reason: Pain Score 4-5/10 Sodium Chloride () 10 - 40 ml IV UD PRN PRN Reason: SALINE FLUSH Last Admin: 10/07/19 16:37 Dose: 10 ml Documented by: Tamsulosin HCl (Flomax) 0.4 mg PO DAILY [facility] Last Admin: 10/08/19 08:53 Dose: 0.4 mg Documented by: Medical Necessity - Tobacco Use Smoking Status: Never smoker Tobacco Use: Chew Route of nutrition/ use of supplements: [] Nutritional Intake: [] IV Site: [] Sky Catheter: [] - Assessment/Plan Antibiotics: [] Assessment/Plan: [] Active and Suspected Problems (Last Reviewed 10/07/19 @ 10:55 by Conner Phillips MD) Cellulitis of left lower limb (Acute) 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 exposed (Acute) ESRD and DM with acute onset of L foot osteo. Wound cx with MRSA and PsA. PCR (+) MRSA. On vanc, cefepime/flagyl. MRI showed osteo of toes. Plan is for 6 weeks of cefepime/vanc dosed with HD qMWF and po flagyl. Stop date 11/16/19. Wrote rx, d/w Dr. Navarro. ID followup as needed. Will follow.
[2019-10-08] MEDS: Atenolol 100 MG Tablet PO (11:02)
[2019-10-08 11:16] LABS: Bedside Glucose 168 mg/dL (70-110)
--- NOTE | 2019-10-08 12:00 | CASEMGMT ---
Scripts received from [place] for IV ATBs for at outpatient HD. ANDER GUERRA called and faxed clinical information and scripts to [facility].
--- NOTE | 2019-10-08 12:40 | NURSING ---
Had talked with patient about dressing changes at home. Pt does not feel he needs home health. states his will be able to change the dressings at home. states she has changed dressings in the past. script for wound care supplies signed by Dr Navarro. pt denies further needs at this time.
[2019-10-08 13:15] VITALS: BP 103/57; PULSE 68
[2019-10-08 13:22] VITALS: BP 103/57; PULSE 68; RESP 18; O2SAT 98
== END 2019-10-08 14:23 | disposition home or self-care (01) | DRG 602 ==
PROVIDERS: Internal Medicine; Admitting Provider Podiatrist; PCP Internal Medicine; Referring Provider Podiatrist; Visit Provider Podiatrist
DX: L03.116 Cellulitis of left lower limb (principal); N18.6 End stage renal disease; I13.2 Hypertensive heart and chronic kidney disease with heart failure and with stage 5 chronic kidney disease, or end stage renal disease; B95.62 Methicillin resistant Staphylococcus aureus infection as the cause of diseases classified elsewhere; L97.522 Non-pressure chronic ulcer of other part of left foot with fat layer exposed; E11.22 Type 2 diabetes mellitus with diabetic chronic kidney disease; E11.621 Type 2 diabetes mellitus with foot ulcer; E11.628 Type 2 diabetes mellitus with other skin complications; E78.5 Hyperlipidemia, unspecified; E11.42 Type 2 diabetes mellitus with diabetic polyneuropathy; E66.9 Obesity, unspecified; Z68.32 Body mass index [BMI] 32.0-32.9, adult; Z99.2 Dependence on renal dialysis; Z91.19 Patient's noncompliance with other medical treatment and regimen; Z79.4 Long term (current) use of insulin; I25.10 Atherosclerotic heart disease of native coronary artery without angina pectoris; E11.51 Type 2 diabetes mellitus with diabetic peripheral angiopathy without gangrene; D63.1 Anemia in chronic kidney disease; E11.319 Type 2 diabetes mellitus with unspecified diabetic retinopathy without macular edema; H54.62 Unqualified visual loss, left eye, normal vision right eye; F32.9 Major depressive disorder, single episode, unspecified; F41.9 Anxiety disorder, unspecified; K21.9 Gastro-esophageal reflux disease without esophagitis; I25.2 Old myocardial infarction; F17.220 Nicotine dependence, chewing tobacco, uncomplicated; Z80.0 Family history of malignant neoplasm of digestive organs; Z82.49 Family history of ischemic heart disease and other diseases of the circulatory system; Z83.3 Family history of diabetes mellitus; Z87.441 Personal history of nephrotic syndrome; Z87.442 Personal history of urinary calculi; Z90.49 Acquired absence of other specified parts of digestive tract; E83.59 Other disorders of calcium metabolism; R19.7 Diarrhea, unspecified
CPT/HCPCS: 36415; 73718; 80053; 82565; 82962; 85025; 85652; 86140; 87040; 87070; 87075; 87077; 87186; 87205; 87640; 90937; 93923; 97802; J7040; J7050; A4216; G0257

== ENCOUNTER 2019-12-01 08:26 | Day surgery (SDC) | payer MEDICARE, OTHER, SELFPAY ==
[2019-11-03 13:46] VITALS: BMI 31.3
--- NOTE | 2019-11-05 03:27 | HP_ITS ---
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 Is patient in pain?: No Allergies No Known Allergies Allergy (Verified 11/03/19 13:31) Medications Gabapentin [Neurontin] 300 mg PO TIDCM 07/15/13 [History Confirmed 11/03/19] Atorvastatin Calcium [Lipitor] 20 mg PO QHS 11/19/17 [History Confirmed 11/03/19] Atenolol [Tenormin (beta elizabeth)] 100 mg PO DAILY 11/28/17 [History Confirmed 11/03/19] tamsulosin 0.4 mg capsule 0.4 mg PO DAILY cap 01/20/18 [History Confirmed 11/03/19] Calcitriol [Rocaltrol] 0.5 mcg PO DAILY 08/04/18 [History Confirmed 11/03/19] Aspirin [Aspirin, Baby] 81 mg PO DAILY@0800 08/21/18 [History Confirmed 11/03/19] Calcium Acetate [Phoslo Gel Cap] 667 mg PO TIDCM #90 cap 08/25/18 [Rx Confirmed 11/03/19] Acetaminophen [Tylenol] 1,000 mg PO Q6H PRN PRN 08/26/18 [History Confirmed 11/03/19] Bupropion HCl [Bupropion Xl] 300 mg PO DAILY 08/26/18 [History Confirmed 11/03/19] Amlodipine [Norvasc] 10 mg PO DAILY #0 08/29/18 [Rx Confirmed 11/03/19] Furosemide [Lasix] 80 mg PO BID@1000,1800 10/06/19 [History Confirmed 11/03/19] Hydralazine HCl 25 mg PO TID 10/06/19 [History Confirmed 11/03/19] Insulin Lispro [Humalog KwikPen] See Protocol SQ ACHS 10/06/19 [History Confirmed 11/03/19] Cefepime HCl [Maxipime] 2 gm IV UD 40 Days #17 vial 10/08/19 [Rx Confirmed 11/03/19] Insulin Glargine,Hum.rec.anlog [Basaglar Kwikpen U-100] 8 unit SQ QHS #1 ml 10/08/19 [Rx Confirmed 11/03/19] Insulin Lispro [Humalog KwikPen] See Protocol SUBCUT ACHS #1 insuln.pen 10/08/19 [Rx Confirmed 11/03/19] Vancomycin/0.9 % Sod Chloride [Vanco 750 mg/150 ml-0.9% NaCl] 750 mg IV UD 40 Days #17 froz.piggy 10/08/19 [Rx Confirmed 11/03/19] metroNIDAZOLE [Flagyl] 500 mg PO TID 40 Days #120 tab 10/08/19 [Rx Confirmed 11/03/19] [facility] Medical History Atherosclerotic heart disease of [place] coronary artery without angina pectoris (Chronic) Essential hypertension (Chronic) Problem with dialysis access (Resolved) Anasarca associated with disorder of kidney (Resolved) Anemia of chronic renal failure, stage 4 (severe) (Chronic) Autonomic neuropathy (Suspected) Chronic renal failure, stage 4 (severe) (Chronic) Retention, urine (Resolved) Acute on chronic diastolic CHF (congestive heart failure) (Resolved) Acute hypoxemic respiratory failure (Ruled-out) Hypoglycemia (Resolved) Acute respiratory failure with hypoxia (Ruled-out) Obesity (BMI 30-39.9) (Chronic) Noncompliance (Chronic) Diabetic neuropathy (Chronic) Diabetic nephropathy (Chronic) Diabetic retinopathy (Chronic) HLD (hyperlipidemia) (Chronic) Blind left eye (Chronic) Diabetes mellitus type II, uncontrolled (Chronic) Anxiety and depression (Chronic) GERD (gastroesophageal reflux disease) (Chronic) Chewing tobacco nicotine dependence (Chronic) ILDA (acute kidney injury) (Ruled-out) Right leg pain (Resolved) Chronic ulcer of 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 (Resolved) Cellulitis and abscess of right leg (Resolved) History of acute myocardial infarction (Chronic) Kidney failure (Acute) Kidney stones (Acute) Pneumonia (Acute) Type 2 diabetes mellitus with diabetic polyneuropathy (Acute) Vision problems (Acute) Fistula (Chronic ~12/2018) History of left heart catheterization (LHC) (Chronic ~06/26/11) Hypertensive emergency (Resolved) Hypokalemia (Resolved) Surgical History History of appendectomy (Acute) History of arteriovenostomy for renal dialysis (Acute ~08/2018) Status post insertion of dialysis catheter (Acute ~08/2018) History of eye surgery (Chronic) History of cholecystectomy (Resolved) Family History Mother Heart disease Hypertension Father Cancer Brother Cancer Diabetes Sister Diabetes Social History (Updated 11/05/19 @ 15:27 by Minerva Sexton PA-C) Smoking Status: Never smoker second hand exposure: No alcohol intake: never substance use type: does not use HPI HPI HPI: ITALO BURGOS, is a 48 M who presents to the office today for HPI HPI Surgical H&P: Yes HPI: ITALO BURGOS, is a 48 M who presents to the office today for decreased clearance and increased arterial pressures. Patient dialyzes M, W, and F. Patient has had a previous fistulogram by Dr. Phan on 12/11/2018. Findings included a radial to cephalic arteriovenous hemodialysis fistula with excellent outflow throughout the forearm upper arm and chest. There is evidence of 70% stenosis at the arterial anastomosis which resolved with angioplasty. There is evidence of 2 large side branches in the mid fistula. A 4 x 2 Powerflex was used to assist with stenosis at the arterial anastomosis. Patient subsequently then underwent a branch ligation in the office on 01/10/19. Patient had two dominant side branches which were ligated. ROS General General: Yes weight change; no appetite, fatigue, colon cancer, breast cancer or weakness HEENT HEENT: Yes eye injury and eye surgery; no difficulty swallowing, swollen glands or hoarseness Endo Endocrine: Yes diabetes mellitus; no thyroid disease, thyroid cancer, Hair loss, heat intolerance or cold intolerance Skin Skin: No rash or changing moles Breast Breast: No left breast lump, right breast lump, nipple discharge, breast pain, abnormal mammogram, abnormal US or breast enlargement Musc Musculoskeletal: No back problems, arthritis, rheumatoid arthritis, gout or joint pain Cardio Cardiovascular: Yes heart disease and high blood pressure; no murmur, pacemaker, atrial fibrillation, heart attack, heart stent, palpitations, shortness of breat with exertion or chest pain Psych Psychiatric: Yes depression; no anxiety or hearing voices Resp Respiratory: Yes shortness of breath, Yes sleep apnea, Yes cough, No COPD, No asthma, No emphysema, No wheezing Gastro Gastrointestinal: No abdominal pain, Yes nausea or vomiting, Yes diarrhea, No constipation, No blood in stool, No acid reflux, No hemorrhoids, No ulcers, No gallbladder problem, No black,tarry stools Isaiah Hematologic: No blood thinners, No blood disorders, No bleeding, No anemia, No blood clots Neuro Neurologic: No weakness Exam Const General: cooperative, healthy appearing, comfortable, no acute distress [facility] Head: normal to inspection Eyes General: appearance normal, both eyes and all related structures Neck Neck: normal visual inspection Neck mass: No Chest Breast Palpation: No nipple discharge Resp Effort & Inspection: normal respiratory effort Auscultation: clear to auscultation bilaterally Cardio Rate: regular rate Rhythm: regular rhythm Heart Sounds: no murmurs GI Inspection: normal to inspection Palpation: soft Auscultation: normal bowel sounds Skin General: no rashes or lesions noted Neuro General: no focal motor deficits, CN's II-XI intact bilaterally Extrem Other: right forearm AV fistula- good pulse, bruit and thrill. Diminished bruit/whistling at the proximal portion of the fistula. Psych Appearance: grossly normal Affect: normal affect Assessment & Plan Problems 1. Problem with dialysis access, initial encounter T82.215D Plan Dr. Phan will plan to perform a right forearm AV fistulogram, non-urgent. Procedure details, risks and benefits have been reviewed. Patient has had the opportunity to ask and have questions answered. Patient verbally understands and agrees with the plan. Coding Level of Care Code Off vis,est,level 3 Diagnoses Problem with dialysis access, initial encounter T82.307X ??Encounter type: initial encounter 11/05/19 1527 <Electronically signed by Minerva smith PA-C> Date _ Minerva Sexton PA-C
[2019-11-30 07:27] VITALS: BMI 30.9
[2019-12-01 08:42] LABS: Absolute Lymphocyte Count 1.28 X10^3/uL (0.83-4.51); Absolute Neutrophil Count 3.8 X10^3/uL (2.0-7.7); Basophil# 0.03 X10^3/uL; Basophil% 0.5 % (0-1); Eosinophil# 0.08 X10^3/uL; Eosinophils% 1.4 % (0-5); Hematocrit 33.6 % (40-54); Hemoglobin 11.3 g/dL (13.0-16.5); Lymphocyte # 1.28 X10^3/ul (4.0); Lymphocyte % 22.3 % (19-41); Mean Corp Hgb Conc 33.6 g/dL (32-36); Mean Corpuscular Volume 92.1 fL (80-94); Mean Platelet Vol. 9.2 fl (6.2-12.0); Monocyte# 0.54 X10^3/uL; Monocyte% 9.4 % (0-10); NRBC Flagged by Analyzer 0 % (0-5); Neutrophil % 66.2 % (47-70); Platelet Count 244 K/mm3 (150-450); RBC Distribution Width CV 12.8 % (11.6-14.6); Red Blood Count 3.65 M/mm3 (4.6-6.2); White Blood Count 5.7 K/mm3 (4.4-11.0)
[2019-12-01 08:54] LABS: Anion Gap 11 (5-15); BUN 42 mg/dL (7-18); BUN/Creat Ratio 6.1 RATIO (10-20); Calcium,Total 8.1 mg/dL (8.5-10.1); Chloride 98 mmol/L (98-107); Creatinine, Serum 6.92 mg/dL (0.70-1.30); EST Glomerular Filtration Rate 9 mL/min (>60); Est Glom Filt Rate - Afr Amer 11 mL/min (>60); Estimated Creatinine Clearance 12.36 ml/min; Glucose 168 mg/dL (74-106); Potassium 4.2 mmol/L (3.5-5.1); Sodium Level 138 mmol/L (136-145)
--- NOTE | 2019-12-01 08:54 | PCM.HP.BLA ---
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 Required: No Is patient in pain?: No Allergies No Known Allergies Allergy (Verified 11/03/19 13:31) Medications Gabapentin [Neurontin] 300 mg PO TIDCM 07/15/13 [History Confirmed 11/03/19] Atorvastatin Calcium [Lipitor] 20 mg PO QHS 11/19/17 [History Confirmed 11/03/19] Atenolol [Tenormin (beta elizabeth)] 100 mg PO DAILY 11/28/17 [History Confirmed 11/03/19] tamsulosin 0.4 mg capsule 0.4 mg PO DAILY cap 01/20/18 [History Confirmed 11/03/19] Calcitriol [Rocaltrol] 0.5 mcg PO DAILY 08/04/18 [History Confirmed 11/03/19] Aspirin [Aspirin, Baby] 81 mg PO DAILY@0800 08/21/18 [History Confirmed 11/03/19] Calcium Acetate [Phoslo Gel Cap] 667 mg PO TIDCM #90 cap 08/25/18 [Rx Confirmed 11/03/19] Acetaminophen [Tylenol] 1,000 mg PO Q6H PRN PRN 08/26/18 [History Confirmed 11/03/19] Bupropion HCl [Bupropion Xl] 300 mg PO DAILY 08/26/18 [History Confirmed 11/03/19] Amlodipine [Norvasc] 10 mg PO DAILY #0 08/29/18 [Rx Confirmed 11/03/19] Furosemide [Lasix] 80 mg PO BID@1000,1800 10/06/19 [History Confirmed 11/03/19] Hydralazine HCl 25 mg PO TID 10/06/19 [History Confirmed 11/03/19] Insulin Lispro [Humalog KwikPen] See Protocol SQ ACHS 10/06/19 [History Confirmed 11/03/19] Cefepime HCl [Maxipime] 2 gm IV UD 40 Days #17 vial 10/08/19 [Rx Confirmed 11/03/19] Insulin Glargine,Hum.rec.anlog [Basaglar Kwikpen U-100] 8 unit SQ QHS #1 ml 10/08/19 [Rx Confirmed 11/03/19] Insulin Lispro [Humalog KwikPen] See Protocol SUBCUT ACHS #1 insuln.pen 10/08/19 [Rx Confirmed 11/03/19] Vancomycin/0.9 % Sod Chloride [Vanco 750 mg/150 ml-0.9% NaCl] 750 mg IV UD 40 Days #17 froz.piggy 10/08/19 [Rx Confirmed 11/03/19] metroNIDAZOLE [Flagyl] 500 mg PO TID 40 Days #120 tab 10/08/19 [Rx Confirmed 11/03/19] [facility] Medical History Atherosclerotic heart disease of [place] coronary artery without angina pectoris (Chronic) Essential hypertension (Chronic) Problem with dialysis access (Resolved) Anasarca associated with disorder of kidney (Resolved) Anemia of chronic renal failure, stage 4 (severe) (Chronic) Autonomic neuropathy (Suspected) Chronic renal failure, stage 4 (severe) (Chronic) Retention, urine (Resolved) Acute on chronic diastolic CHF (congestive heart failure) (Resolved) Acute hypoxemic respiratory failure (Ruled-out) Hypoglycemia (Resolved) Acute respiratory failure with hypoxia (Ruled-out) Obesity (BMI 30-39.9) (Chronic) Noncompliance (Chronic) Diabetic neuropathy (Chronic) Diabetic nephropathy (Chronic) Diabetic retinopathy (Chronic) HLD (hyperlipidemia) (Chronic) Blind left eye (Chronic) Diabetes mellitus type II, uncontrolled (Chronic) Anxiety and depression (Chronic) GERD (gastroesophageal reflux disease) (Chronic) Chewing tobacco nicotine dependence (Chronic) ILDA (acute kidney injury) (Ruled-out) Right leg pain (Resolved) Chronic ulcer of 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 (Resolved) Cellulitis and abscess of right leg (Resolved) History of acute myocardial infarction (Chronic) Kidney failure (Acute) Kidney stones (Acute) Pneumonia (Acute) Type 2 diabetes mellitus with diabetic polyneuropathy (Acute) Vision problems (Acute) Fistula (Chronic ~12/2018) History of left heart catheterization (LHC) (Chronic ~06/26/11) Hypertensive emergency (Resolved) Hypokalemia (Resolved) Surgical History History of appendectomy (Acute) History of arteriovenostomy for renal dialysis (Acute ~08/2018) Status post insertion of dialysis catheter (Acute ~08/2018) History of eye surgery (Chronic) History of cholecystectomy (Resolved) Family History Mother Heart disease Hypertension Father Cancer Brother Cancer Diabetes Sister Diabetes Social History (Updated 11/05/19 @ 15:27 by Minerva Sexton PA-C) Smoking Status: Never smoker second hand exposure: No alcohol intake: never substance use type: does not use HPI HPI HPI: ITALO BURGOS, is a 48 M who presents to the office today for HPI HPI Surgical H&P: Yes HPI: ITALO BURGOS, is a 48 M who presents to the office today for decreased clearance and increased arterial pressures. Patient dialyzes M, W, and F. Patient has had a previous fistulogram by Dr. Phan on 12/11/2018. Findings included a radial to cephalic arteriovenous hemodialysis fistula with excellent outflow throughout the forearm upper arm and chest. There is evidence of 70% stenosis at the arterial anastomosis which resolved with angioplasty. There is evidence of 2 large side branches in the mid fistula. A 4 x 2 Powerflex was used to assist with stenosis at the arterial anastomosis. Patient subsequently then underwent a branch ligation in the office on 01/10/19. Patient had two dominant side branches which were ligated. ROS General General: Yes weight change; no appetite, fatigue, colon cancer, breast cancer or weakness HEENT HEENT: Yes eye injury and eye surgery; no difficulty swallowing, swollen glands or hoarseness Endo Endocrine: Yes diabetes mellitus; no thyroid disease, thyroid cancer, Hair loss, heat intolerance or cold intolerance Skin Skin: No rash or changing moles Breast Breast: No left breast lump, right breast lump, nipple discharge, breast pain, abnormal mammogram, abnormal US or breast enlargement Musc Musculoskeletal: No back problems, arthritis, rheumatoid arthritis, gout or joint pain Cardio Cardiovascular: Yes heart disease and high blood pressure; no murmur, pacemaker, atrial fibrillation, heart attack, heart stent, palpitations, shortness of breat with exertion or chest pain Psych Psychiatric: Yes depression; no anxiety or hearing voices Resp Respiratory: Yes shortness of breath, Yes sleep apnea, Yes cough, No COPD, No asthma, No emphysema, No wheezing Gastro Gastrointestinal: No abdominal pain, Yes nausea or vomiting, Yes diarrhea, No constipation, No blood in stool, No acid reflux, No hemorrhoids, No ulcers, No gallbladder problem, No black,tarry stools Isaiah Hematologic: No blood thinners, No blood disorders, No bleeding, No anemia, No blood clots Neuro Neurologic: No weakness Exam Const General: cooperative, healthy appearing, comfortable, no acute distress [facility] Head: normal to inspection Eyes General: appearance normal, both eyes and all related structures Neck Neck: normal visual inspection Neck mass: No Chest Breast Palpation: No nipple discharge Resp Effort & Inspection: normal respiratory effort Auscultation: clear to auscultation bilaterally Cardio Rate: regular rate Rhythm: regular rhythm Heart Sounds: no murmurs GI Inspection: normal to inspection Palpation: soft Auscultation: normal bowel sounds Skin General: no rashes or lesions noted Neuro General: no focal motor deficits, CN's II-XI intact bilaterally Extrem Other: right forearm AV fistula- good pulse, bruit and thrill. Diminished bruit/whistling at the proximal portion of the fistula. Psych Appearance: grossly normal Affect: normal affect Assessment & Plan Problems 1. Problem with dialysis access, initial encounter T82.898A Plan December 2018 I performed a right upper extremity fistulogram with a 4 x 2 Powerflex proximal fistula arterial anastomotic angioplasty. Subsequently he had sidebranch ligation performed in the office. Currently he is diminished flows noted on dialysis. 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 This warrants endovascular intervention prior to complete occlusion. I propose for him a right extremity fistulogram with possible endovascular intervention. He has had an opportunity to ask and have questions answered. We will proceed as noted. Satish Phan M.D., F.A.C.S.
--- NOTE | 2019-12-01 10:39 | PCM.OPRPT ---
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 48-year-old gentleman was taken to the special procedure lab placed on the table the right extremity sterilely prepped draped he received 50 mcg of fentanyl 1 mg of Versed is intravenous sedation under ultrasound guidance 2% lidocaine was instilled as local anesthetic then a micropuncture needle was used to gain retrograde access in the mid forearm. Micropuncture wire inserted 6 [place] short sheath dilator was inserted. Using an 035 Glidewire and a 4 [place] glide cath I was able to gain access to the radial artery proximal to the anastomosis. Using Isovue contrast a fistulogram was obtained. This demonstrated adequate patency of the anastomosis both within 1 to 2 cm to the anastomosis there was a high-grade 80% venous stenosis. Subsequently a 6 x 2 ConQuest balloon was inserted I did exchanged out for an 035 Magic wire prior to that. The balloon was insufflated directly at the anastomosis and within the proximal portion of the fistula. Pressure was taken up to 30 mmHg pressure. Fistulogram was then obtained through the balloon demonstrating dramatic improvement in the stenosis. Remove the balloon. Fistulogram was obtained through the sheath for remainder of the right upper extremity and chest outflow. Sheath was removed U suture of 4-0 nylon was placed Right extremity fistulogram demonstrates a right forearm radiocephalic arteriovenous hemodialysis fistula. There is evidence of a tied off side branch but one additional evidence and some accessory flow but minimal. The anastomosis appeared to be mostly patent with just slight narrowing. In the proximal fistula within a centimeter to the anastomosis there is a high-grade 80% area of stenosis. The remainder of the forearm cephalic vein and bilateral upper arm cephalic and basilic veins and central venous outflow is widely patent. Subsequent to the angioplasty there is resolution of the proximal fistula venous stenosis. Specimens none. Drains none. Blood loss minimal. Satish Phan M.D., F.A.C.S. Type of Anesthesia:: IV Sedation, Local
== END 2019-12-01 11:40 | disposition home or self-care (01) ==
PROVIDERS: PCP Internal Medicine; Referring Provider Surgery; Visit Provider Surgery
DX: T82.858A Stenosis of other vascular prosthetic devices, implants and grafts, initial encounter (principal); I25.10 Atherosclerotic heart disease of native coronary artery without angina pectoris; I12.9 Hypertensive chronic kidney disease with stage 1 through stage 4 chronic kidney disease, or unspecified chronic kidney disease; E11.22 Type 2 diabetes mellitus with diabetic chronic kidney disease; N18.4 Chronic kidney disease, stage 4 (severe); Z99.2 Dependence on renal dialysis; D63.1 Anemia in chronic kidney disease; E66.9 Obesity, unspecified; E11.42 Type 2 diabetes mellitus with diabetic polyneuropathy; E11.21 Type 2 diabetes mellitus with diabetic nephropathy; E11.319 Type 2 diabetes mellitus with unspecified diabetic retinopathy without macular edema; I25.2 Old myocardial infarction; E78.5 Hyperlipidemia, unspecified; F41.9 Anxiety disorder, unspecified; F32.9 Major depressive disorder, single episode, unspecified; K21.9 Gastro-esophageal reflux disease without esophagitis; Z87.01 Personal history of pneumonia (recurrent); Z87.442 Personal history of urinary calculi; Z79.4 Long term (current) use of insulin; Z79.82 Long term (current) use of aspirin; Z79.899 Other long term (current) drug therapy
CPT/HCPCS: 36415; 36902; 76937; 80048; 85025; 99152; 99153; Q9967; C1725; C1769

== ENCOUNTER 2020-10-27 10:26 | Day surgery (SDC) | payer MEDICARE, MEDICAID, SELFPAY ==
[2020-10-11 13:21] VITALS: BMI 31.1
[2020-10-26 07:23] VITALS: BMI 31.1
[2020-10-27 10:45] LABS: Hemoglobin 12.1 g/dL (13.0-16.5); Mean Corp Hgb Conc 33.6 g/dL (32-36); Mean Corpuscular Hgb 32.4 pg (27.0-32.0); Mean Corpuscular Volume 96.5 fL (80-94); Mean Platelet Vol. 9.8 fl (6.2-12.0); Platelet Count 205 K/mm3 (150-450); RBC Distribution Width CV 12.9 % (11.6-14.6); RBC Distribution Width SD 45.3 fl (35.1-43.9); Red Blood Count 3.73 M/mm3 (4.6-6.2); White Blood Count 6.8 K/mm3 (4.4-11.0)
[2020-10-27 10:58] LABS: Anion Gap 7 (5-15); BUN 54 mg/dL (7-18); BUN/Creat Ratio 7.5 RATIO (10-20); Calcium,Total 8.2 mg/dL (8.5-10.1); Chloride 95 mmol/L (98-107); Creatinine, Serum 7.17 mg/dL (0.70-1.30); EST Glomerular Filtration Rate 9 mL/min (>60); Est Glom Filt Rate - Afr Amer 10 mL/min (>60); Estimated Creatinine Clearance 11.79 ml/min; Glucose 286 mg/dL (74-106); Potassium 4.9 mmol/L (3.5-5.1); Sodium Level 134 mmol/L (136-145)
--- NOTE | 2020-10-27 11:26 | PCM.HP.BLA ---
Problem List (1) Problem with dialysis access Status: Acute Qualifiers: Encounter type: initial encounter Qualified Code(s): T82.898A - Other specified complication of vascular prosthetic devices, implants and grafts, initial encounter History and Physical Date of Admission: 10/27/20 Intake Visit Reasons: ACCESS FLOW ISSUES Chief Complaint: foot infection Welcome [facility] Attendant Required: No Is patient in pain?: No Allergies No Known Allergies Allergy (Verified 10/11/20 13:22) Medications Atorvastatin Calcium [Lipitor] 20 mg PO QHS 11/19/17 [History Confirmed 10/11/20] Atenolol [Tenormin (beta elizabeth)] 100 mg PO DAILY 11/28/17 [History Confirmed 08/11/20] tamsulosin 0.4 mg capsule 0.4 mg PO DAILY cap 01/20/18 [History Confirmed 10/11/20] Calcitriol [Rocaltrol] 0.5 mcg PO DAILY 08/04/18 [History Confirmed 10/11/20] Aspirin [Aspirin, Baby] 81 mg PO DAILY@0800 08/21/18 [History Confirmed 08/11/20] Calcium Acetate [Phoslo Gel Cap] 667 mg PO TIDCM #90 cap 08/25/18 [Rx Confirmed 10/11/20] Acetaminophen [Tylenol] 1,000 mg PO Q6H PRN PRN 08/26/18 [History Confirmed 10/11/20] Amlodipine [Norvasc] 10 mg PO DAILY #0 08/29/18 [Rx Confirmed 10/11/20] Furosemide [Lasix] 80 mg PO BID@1000,1800 10/06/19 [History Confirmed 08/11/20] Hydralazine HCl 25 mg PO TID 10/06/19 [History Confirmed 10/11/20] Insulin Lispro [Humalog KwikPen] See Protocol SQ ACHS 10/06/19 [History Confirmed 10/11/20] insulin glargine 100 unit/mL (3 mL) subcutaneous pen 8 unit SC QHS ml 08/11/20 [History Confirmed 10/11/20] PFSH Medical History Atherosclerotic heart disease of [place] coronary artery without angina pectoris (Chronic) Essential hypertension (Chronic) Anemia of chronic renal failure, stage 4 (severe) (Chronic) Autonomic neuropathy (Suspected) Chronic renal failure, stage 4 (severe) (Chronic) Obesity (BMI 30-39.9) (Chronic) Noncompliance (Chronic) Diabetic neuropathy (Chronic) Diabetic nephropathy (Chronic) Diabetic retinopathy (Chronic) HLD (hyperlipidemia) (Chronic) Blind left eye (Chronic) Diabetes mellitus type II, uncontrolled (Chronic) Anxiety and depression (Chronic) GERD (gastroesophageal reflux disease) (Chronic) Chewing tobacco nicotine dependence (Chronic) History of acute myocardial infarction (Chronic) Kidney failure (Acute) Kidney stones (Acute) Pneumonia (Acute) Type 2 diabetes mellitus with diabetic polyneuropathy (Acute) Vision problems (Acute) Fistula (Chronic ~12/2018) History of left heart catheterization (LHC) (Chronic ~06/26/11) Acute on chronic diastolic CHF (congestive heart failure) (Resolved) Anasarca associated with disorder of kidney (Resolved) Cellulitis and abscess of right leg (Resolved) Chronic ulcer of 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 (Resolved) Dyspnea (Resolved) Hypertensive emergency (Resolved) Hypoglycemia (Resolved) Hypokalemia (Resolved) Problem with dialysis access (Resolved) Pulmonary edema (Resolved) Retention, urine (Resolved) Right leg pain (Resolved) ILDA (acute kidney injury) (Ruled-out) Acute hypoxemic respiratory failure (Ruled-out) Acute respiratory failure with hypoxia (Ruled-out) Surgical History History of appendectomy (Acute) History of arteriovenostomy for renal dialysis (Acute ~08/2018) Status post insertion of dialysis catheter (Acute ~08/2018) History of eye surgery (Chronic) History of cholecystectomy (Resolved) Family History Mother Heart disease Hypertension Father Cancer Brother Cancer Diabetes Sister Diabetes Social History (Updated 10/11/20 @ 16:02 by Minerva ROCHA, PA-C) Smoking Status: Never smoker second hand exposure: No alcohol intake: never substance use type: does not use HPI HPI HPI: ITALO BURGOS, is a 49 M who presents to the office today for HPI HPI Surgical H&P: Yes HPI: ITALO BURGOS, is a 49 M who presents to the office today for decreased flows and new formation of a lump near the wrist. Patient has a right forearm radiocephalic AV fistula. He dialyzes on M, W and F. His last fistulogram was on 12/01/19 which demonstrated high-grade proximal right forearm stenosis. A 6 x 2 Conquest angioplasty was performed. Patient denies pain at the fistula site. Patient also notes a lump near the anastomosis that has formed 2 weeks ago. He denies pain in this area. He has limited eye sight. Dialysis center has been noting decrease in flow rates. Patient also notes 2 weeks ago he was placed on the transplant list. ROS General General: Yes weight change; no appetite, fatigue, colon cancer, breast cancer or weakness HEENT HEENT: Yes eye injury and eye surgery; no difficulty swallowing, swollen glands or hoarseness Endo Endocrine: Yes diabetes mellitus; no thyroid disease, thyroid cancer, Hair loss, heat intolerance or cold intolerance Skin Skin: No rash or changing moles Breast Breast: No left breast lump, right breast lump, nipple discharge, breast pain, abnormal mammogram, abnormal US or breast enlargement Musc Musculoskeletal: No back problems, arthritis, rheumatoid arthritis, gout or joint pain Cardio Cardiovascular: Yes heart disease and high blood pressure; no murmur, pacemaker, atrial fibrillation, heart attack, heart stent, palpitations, shortness of breat with exertion or chest pain Psych Psychiatric: Yes depression; no anxiety or hearing voices Resp Respiratory: Yes shortness of breath, Yes sleep apnea, Yes cough, No COPD, No asthma, No emphysema, No wheezing Gastro Gastrointestinal: No abdominal pain, Yes nausea or vomiting, Yes diarrhea, No constipation, No blood in stool, No acid reflux, No hemorrhoids, No ulcers, No gallbladder problem, No black,tarry stools Isaiah Hematologic: No blood thinners, No blood disorders, No bleeding, No anemia, No blood clots Neuro Neurologic: No weakness Exam Const General: cooperative, healthy appearing, comfortable, no acute distress [facility] Head: normal to inspection Eyes General: appearance normal, both eyes and all related structures Neck Neck: normal visual inspection Neck mass: No Chest Breast Palpation: No nipple discharge Resp Effort & Inspection: normal respiratory effort Auscultation: clear to auscultation bilaterally Cardio Rate: regular rate Rhythm: regular rhythm Heart Sounds: no murmurs GI Inspection: normal to inspection Musc Cervical Spine: normal cervical lordosis Skin General: no rashes or lesions noted Neuro General: no focal motor deficits, CN's II-XI intact bilaterally Extrem Other: Right forearm AV fistula- good pulse. Diminished bruit and thrill at superior needle access. There is a small approximately 3 cm diameter pseudoaneurysm noted. Overlying skin is intact. No ulcerations are noted. Psych Appearance: grossly normal Affect: normal affect Assessment & Plan Problems 1. Chronic renal failure, stage [address] Phna will plan to perform a right forearm fistulogram, non-urgent. Procedure details, risks and benefits have been explained to the patient. Patient has had the opportunity to ask and have questions answered. Patient verbally understands and agrees with the plan. Coding Level of Care Code Off vis,est,level 3 Diagnoses Chronic renal failure, stage 5 N18.5 I have re-examined the patient. There are no clinical changes since date of exam. Procedure Criteria Procedure Type: Elective COVID Risk Discussion: The surgeon/proceduralist and patient have discussed in detail the risk of exposure to and/or potential harm posed by the COVID-19 virus with having a surgery/procedure at this time versus the risk of delaying the surgery/procedure. It is not possible to know either the risk of delaying the surgery or procedure or chance of getting an infection with perfect accuracy, but a joint decision was made between the patient and the surgeon/proceduralist to proceed at this time with the scheduled surgery/procedure as indicated on the consent form.
--- NOTE | 2020-10-27 12:36 | PCM.OPRPT ---
Problem List (1) Problem with dialysis access Status: Acute Qualifiers: Encounter type: initial encounter Qualified Code(s): T82.898A - Other specified complication of vascular prosthetic devices, implants and grafts, initial encounter Report of Operation Date of Procedure: 10/27/20 Pre-Operative Diagnosis: Diminished flow right forearm radial to cephalic arteriovenous hemodialysis fistula Post-Operative Diagnosis: Proximal fistula venous stenosis Surgery/Procedure Performed:: Right upper extremity fistulogram with 6 x 2 ConQuest angioplasty and subsequent 7 x 2 ConQuest angioplasty Description of Surgical Findings:: Timeout and informed consent was obtained. 49-year-old gentleman was taken to the special procedure room placed upon the table the right extremity sterilely prepped and draped under ultrasound guidance access was gained to the right radiocephalic arteriovenous hemodialysis fistula closer to the antecubital space retrograde with flow. Under ultrasound guidance 2% lidocaine was instilled. Then a micropuncture needle was inserted micropuncture wire inserted 6 [place] Citizen short sheath dilator was inserted. Using an 035 angled Glidewire and 4 [place] Citizen glide cath I gained access to the radial artery proximal to here and to the anastomosis. Using Isovue to obtain a fistulogram. This demonstrated 2 areas of high-grade venous stenosis 1 within a centimeter of the anastomosis and the other approximately 3 cm from the anastomosis. Initially I placed a 6 x 2 ConQuest balloon over an 035 Magic wire and balloon angioplasty was performed up to 35 amanda of pressure. Several different repositionings and insufflations were performed. Several repeat follow-up views were obtained however it seemed to demonstrate that the more primary area of stenosis closer to the anastomosis resolved a secondary area seemingly did not so after multiple repositions of the 6 x 2 ConQuest balloon I then inserted a 7 x 2 ConQuest balloon and retreated the proximal fistula area. Subsequent to this there appeared to be good resolution of the areas of stenosis with good release. I finished the fistulogram demonstrating views of the upper arm and central outflow. He tolerated it well the sheath was removed U suture of 4-0 nylon was placed Fistulogram demonstrates a right forearm radiocephalic arteriovenous hemodialysis fistula with 2 areas of high-grade venous stenosis within 1 cm and 3 cm of the anastomosis. Final resolution was achieved with a 7 x 2 ConQuest balloon. There was excellent outflow of the forearm upper arm and chest area. Successfully treated right forearm radiocephalic arteriovenous hemodialysis fistula. Specimens none. Drains none. Blood loss minimal. Satish Phan M.D., F.A.C.S. Type of Anesthesia:: Local
== END 2020-10-27 13:45 | disposition home or self-care (01) ==
LOC: CLSP 10:27
PROVIDERS: PCP Internal Medicine; Referring Provider Surgery; Visit Provider Surgery
DX: I12.0 Hypertensive chronic kidney disease with stage 5 chronic kidney disease or end stage renal disease (principal); N18.5 Chronic kidney disease, stage 5; T82.898A Other specified complication of vascular prosthetic devices, implants and grafts, initial encounter; E11.22 Type 2 diabetes mellitus with diabetic chronic kidney disease; I87.1 Compression of vein; Z79.4 Long term (current) use of insulin; Z79.82 Long term (current) use of aspirin; Z99.2 Dependence on renal dialysis; I25.10 Atherosclerotic heart disease of native coronary artery without angina pectoris; E78.5 Hyperlipidemia, unspecified; E11.21 Type 2 diabetes mellitus with diabetic nephropathy; E11.319 Type 2 diabetes mellitus with unspecified diabetic retinopathy without macular edema; F32.9 Major depressive disorder, single episode, unspecified; F41.9 Anxiety disorder, unspecified; K21.9 Gastro-esophageal reflux disease without esophagitis
CPT/HCPCS: 36415; 36902; 76937; 80048; 85027; Q9967; C1725; C1769

== ENCOUNTER 2021-05-02 20:24 | Emergency (ER) | payer MEDICARE, MEDICAID, SELFPAY ==
[2021-05-02 20:25] VITALS: BP 143/71; PULSE 87; RESP 16; TEMP 36.3; O2SAT 99; BMI 33.0
--- NOTE | 2021-05-02 21:58 | US_ITS ---
INDICATION: RT CALF SWELLING EXAMINATION: US Venous Duplex LE Unilat / Limited TECHNIQUE: Lucero scale, pulse wave, and color flow Doppler imaging was performed of the lower extremity venous system. The right greater saphenous, common femoral, femoral, and popliteal veins were interrogated. COMPARISON: None. FINDINGS: There is normal compression, augmentation, and signal throughout the visualized deep lower extremity veins. No mass or fluid collection. There is subcutaneous edema in the lower leg. US/Venous Duplex Imag/Limited/Uni IMPRESSION: No sonographic evidence of deep venous thrombosis. Electronically Signed: Obi Steven MD at 23:04 EDT Tel , Service support ,
[2021-05-02 22:21] LABS: Absolute Lymphocyte Count 0.78 X10^3/uL (0.83-4.51); Absolute Neutrophil Count 6.8 X10^3/uL (2.0-7.7); Basophil# 0.02 X10^3/uL; Basophil% 0.2 % (0-1); Eosinophil# 0.02 X10^3/uL; Eosinophils% 0.2 % (0-5); Hematocrit 34.2 % (40-54); Hemoglobin 11.6 g/dL (13.0-16.5); Lymphocyte # 0.78 X10^3/ul (0.83-4.51); Lymphocyte % 9.5 % (19-41); Mean Corp Hgb Conc 33.9 g/dL (32-36); Mean Corpuscular Hgb 33.4 pg (27.0-32.0); Mean Corpuscular Volume 98.6 fL (80-94); Mean Platelet Vol. 9.8 fl (6.2-12.0); Monocyte# 0.49 X10^3/uL; NRBC Flagged by Analyzer 0 % (0-5); Neutrophil # 6.82 X10^3/uL (2.7-7.7); Neutrophil % 83.2 % (47-70); Platelet Count 226 K/mm3 (150-450); RBC Distribution Width CV 14.4 % (11.6-14.6); RBC Distribution Width SD 52.1 fl (35.1-43.9); Red Blood Count 3.47 M/mm3 (4.6-6.2); White Blood Count 8.2 K/mm3 (4.4-11.0)
[2021-05-02 22:38] LABS: Anion Gap 6 (5-15); BUN 47 mg/dL (7-18); BUN/Creat Ratio 25.3 RATIO (10-20); Calcium,Total 8.5 mg/dL (8.5-10.1); Chloride 110 mmol/L (98-107); Creatinine, Serum 1.86 mg/dL (0.70-1.30); EST Glomerular Filtration Rate 41 mL/min (>60); Est Glom Filt Rate - Afr Amer 49 mL/min (>60); Estimated Creatinine Clearance 44.95 ml/min; Glucose 356 mg/dL (74-106); Potassium 5.4 mmol/L (3.5-5.1); Sodium Level 137 mmol/L (136-145)
[2021-05-02 23:50] VITALS: BP 144/76; PULSE 74; RESP 15; O2SAT 97
--- NOTE | 2021-05-03 00:46 | ED.VIS.LOWEX ---
HPI History of Present Illness Chief Complaint: Edema Detail of Chief Complaint: Unilateral lower extremity swelling, right Informant: patient Occured/Mechanism Mechanism/Context: Yes other see comment below Comment: Renal recipient March 2021 who presents with unilateral leg pain and swelling. He was sent to the ER by his doctor because of concern for DVT. Onset/Context/Timing Context: Sudden Onset Timing: Continuous Quality of Pain: Dull Current Severity: Mild Maximum Severity: Moderate Worsened by: Palpation Relieved by: Nothing Associated Symptoms Associated Symptoms: Negative for Parasthesia, Weakness and Loss of Funtion Narrative Narrative: Is a middle-age male with multiple medical problems who presents because of unilateral right lower extremity pain and swelling. He was sent to the emergency department by his physician. He denies any pleuritic chest pain. He states he has had mild shortness of breath for some time. He has no infectious symptoms. He does make urine. He denies trauma. He denies paresthesia, anesthesia medics. He does have history of diabetic neuropathy. He also has history of diabetic retinopathy. Tetanus Immunization: <5 years Prior similar symptoms: No Recent Illness/Hospitalization: Yes [facility] Medical History Acute hypoxemic respiratory failure Acute on chronic diastolic CHF (congestive heart failure) Acute respiratory failure with hypoxia ILDA (acute kidney injury) Anasarca associated with disorder of kidney Anemia of chronic renal failure, stage 4 (severe) Anxiety and depression Atherosclerotic heart disease of [place] coronary artery without angina pectoris Autonomic neuropathy Blind left eye Cellulitis and abscess of right leg Chewing tobacco nicotine dependence Chronic renal failure, stage 4 (severe) Chronic ulcer of 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 Diabetes mellitus type II, uncontrolled Diabetic nephropathy Diabetic neuropathy Diabetic retinopathy Dyspnea Essential hypertension Fistula (~12/2018) GERD (gastroesophageal reflux disease) History of acute myocardial infarction History of left heart catheterization (LHC) (~06/26/11) HLD (hyperlipidemia) Hypertensive emergency Hypoglycemia Hypokalemia Kidney failure Kidney stones Noncompliance Obesity (BMI 30-39.9) Pneumonia Problem with dialysis access Pulmonary edema Retention, urine Right leg pain Type 2 diabetes mellitus with diabetic polyneuropathy Vision problems Home Medications atorvastatin 20 mg PO QHS 11/19/17 [History Last Taken 10/05/19] atenolol 100 mg PO DAILY 11/28/17 [History Last Taken 10/06/19] tamsulosin 0.4 mg capsule 0.4 mg PO DAILY cap 01/20/18 [History Last Taken 10/06/19] calcitriol 0.5 mcg PO DAILY 08/04/18 [History Last Taken 10/06/19] aspirin 81 mg PO DAILY@0800 08/21/18 [History Last Taken 10/06/19] calcium acetate(phosphat bind) 667 mg PO TIDCM #90 cap 08/25/18 [Rx Last Taken 10/06/19] acetaminophen 1,000 mg PO Q6H PRN PRN 08/26/18 [History Last Taken 08/26/18] amlodipine 10 mg PO DAILY #0 08/29/18 [Rx Last Taken 12/01/19] furosemide 80 mg PO BID@1000,1800 10/06/19 [History Last Taken 10/06/19] hydralazine 25 mg PO TID 10/06/19 [History Last Taken 12/01/19] insulin lispro See Protocol SQ ACHS 10/06/19 [History Last Taken 10/06/19] insulin glargine 100 unit/mL (3 mL) subcutaneous pen 8 unit SC QHS ml 08/11/20 [History Last Taken Unknown] Allergy/AdvReac Type Severity Reaction Status Date / Time No Known Allergies Allergy Verified 05/02/21 20:27 Family History Mother Heart disease Hypertension Father Cancer Brother Cancer Diabetes Sister Diabetes Surgical History History of appendectomy History of arteriovenostomy for renal dialysis (~08/2018) History of artificial lens replacement History of cholecystectomy History of eye surgery Status post insertion of dialysis catheter (~08/2018) Social History Smoking Status: Never smoker second hand exposure: No alcohol intake: never substance use type: does not use caffeine: No ROS ROS ED Constitutional Constitutional ED: Denies chills, fever(s), subjective or sweats Eyes Eyes: Reports other Details: Blind left eye ; Denies blurry vision or change in vision ENT ENT ED: Denies ear pain, rhinorrhea or sore throat Cardiovascular Cardiovascular: Denies chest pain or palpitations Respiratory/Chest Respiratory/Chest: Denies cough, dyspnea or dyspnea on exertion Musculoskeletal Musculoskeletal: Denies arthralgias or myalgias Integumentary Denies rash Neurologic Neurologic: Denies weakness Hematologic/Lymphatic Hematologic/Lymphatic: Denies easy bleeding or easy bruising EXAM Physical Exam Const Vital Signs: 05/02/21 20:25 05/02/21 22:19 05/02/21 23:50 Temperature 97.3 F L Temperature Source Temporal Pulse Rate 87 74 Respiratory Rate 16 15 Respiratory Effort Normal Non-Labored Respiratory Pattern Normal Blood Pressure 143/71 H 144/76 H Blood Pressure Mean 95 98 Pulse Ox 99 97 Oxygen Delivery Method Room Air Room Air Positive well nourished, well developed and obese General Appearance ED: well developed Nutritional Appearance: obese HEENT normocephalic and atraumatic Eyes Negative for PERRL Eyes Narrative: Extraocular muscles are intact. Neck full ROM and supple Resp normal respiratory effort and clear to auscultation bilaterally Cardio regular rate, regular rhythm, S1 normal heart sound, S2 normal heart sound and no murmurs GI non-tender and non-distended; Negative for no masses GI Narrative: Kidney is palpated to the right lower quadrant. Incision site looks intact without evidence of infection. Auscultation: normoactive bowel sounds Palpation: soft Back/Spine no CVA tenderness Extremity full ROM; Negative for normal to inspection Extremity Narrative: Patient has significant swelling of the right leg compared to the left. There is evidence of pitting edema bilaterally. The edema is much greater on the right side. He has tenderness along the distribution of deep venous system. With recent surgery immobilization lateral swelling venous duplex study was obtained to rule out DVT. General Extremety ED: Yes edema; Negative for cyanosis or weight-bearing difficulty General Extremity: edema; Negative for cyanosis or weight-bearing difficulty Neuro oriented x3 and CN's II-XII intact bilaterally Sensorium / Orientation: alert Psych mental status grossly normal Skin Lesions: no lesions Rashes: no rashes MDM MDM MDM Narrative Medical decision making narrative: CBC was obtained assess white count and rule out anemia. BMP was obtained in the event contrast study was needed/indicated. Venous duplex study was interpreted by radiologist as negative. CBC is remarkable for anemia, which is chronic for 10 slightly elevated 5 4. Creatinine is 1.86. GFR is 41. Glucose is elevated 356. Lab Data Labs: Laboratory Results - last 24 hr 05/02/21 05/02/21 22:15 22:15 WBC 8.2 RBC 3.47 L Hgb 11.6 L Hct 34.2 L MCV 98.6 H MCH 33.4 H MCHC 33.9 RDW Std Deviation 52.1 H RDW Coeff of Tomy 14.4 Plt Count 226 MPV 9.8 Immature Gran % (Auto) 0.900 Neut % (Auto) 83.2 H Lymph % (Auto) 9.5 L [place] % (Auto) 6.0 Eos % (Auto) 0.2 Baso % (Auto) 0.2 Absolute Neuts (auto) 6.8 Absolute Lymphs (auto) 0.78 L Nucleated RBC % 0 Sodium 137 Potassium 5.4 H Chloride 110 H Carbon Dioxide 21.0 Anion Gap 6 BUN 47 H Creatinine 1.86 H Estim Creat Clear Calc 44.95 Est GFR (MDRD) Af Amer 49 L Est GFR (MDRD) Non-Af 41 L BUN/Creatinine Ratio 25.3 H Glucose 356 H Calcium 8.5 Radiography Diagnostic Testing: Radiology Impression Venous Duplex 05/02/21 21:58 IMPRESSION: No sonographic evidence of deep venous thrombosis. Electronically Signed: Obi Steven MD at 23:04 EDT Tel , Service support , Discharge Plan Triage Chief Complaint: Edema ED Provider: Chuy Santiago Dx/Rx/DC Orders Clinical Impression: Lymphedema of right lower extremity, Hyperglycemia due to type 2 diabetes mellitus Instructions: ED Diabetic Hyperglycemia, ED Peripheral Edema, Unilateral Prescriptions: No Action insulin glargine 100 unit/mL (3 mL) insulin pen 8 unit SC QHS RF: 0 atorvastatin 20 MG tablet 20 mg PO QHS RF: 0 atenolol 100 MG tablet 100 mg PO DAILY RF: 0 tamsulosin 0.4 mg capsule,extended release 24hr 0.4 mg PO DAILY RF: 0 calcitriol 0.25 MCG capsule 0.5 mcg PO DAILY RF: 0 aspirin 81 MG tablet,chewable 81 mg PO DAILY@0800 RF: 0 calcium acetate(phosphat bind) 667 MG capsule 667 mg PO TIDCM Qty: 90 RF: 0 acetaminophen 500 MG tablet 1,000 mg PO Q6H PRN PRN (Reason: Pain) RF: 0 amlodipine 5 MG tablet 10 mg PO DAILY Qty: 0 RF: 0 hydralazine 25 MG tablet 25 mg PO TID RF: 0 furosemide 80 MG tablet 80 mg PO BID@1000,1800 RF: 0 insulin lispro 100 UNIT/ML insulin pen See Protocol unit SQ ACHS RF: 0 Primary Care Provider: Zaida Mcneil Referrals: Zaida Mcneil MD [Primary Care Provider] - 1 Week if not improving Disposition Disposition: Home, Self Care
[2021-05-03 01:11] VITALS: BP 133/73; PULSE 75; RESP 17; O2SAT 100
== END 2021-05-03 01:18 | disposition home or self-care (01) ==
PROVIDERS: Emergency Provider Emergency Medicine; PCP Internal Medicine
DX: I89.0 Lymphedema, not elsewhere classified (principal); E11.65 Type 2 diabetes mellitus with hyperglycemia; E11.22 Type 2 diabetes mellitus with diabetic chronic kidney disease; E66.9 Obesity, unspecified; D63.1 Anemia in chronic kidney disease; E11.42 Type 2 diabetes mellitus with diabetic polyneuropathy; E78.5 Hyperlipidemia, unspecified; M79.604 Pain in right leg; F17.220 Nicotine dependence, chewing tobacco, uncomplicated; F32.9 Major depressive disorder, single episode, unspecified; F41.9 Anxiety disorder, unspecified; E11.319 Type 2 diabetes mellitus with unspecified diabetic retinopathy without macular edema; I25.10 Atherosclerotic heart disease of native coronary artery without angina pectoris; I13.0 Hypertensive heart and chronic kidney disease with heart failure and stage 1 through stage 4 chronic kidney disease, or unspecified chronic kidney disease; I25.2 Old myocardial infarction; K21.9 Gastro-esophageal reflux disease without esophagitis; I50.33 Acute on chronic diastolic (congestive) heart failure; N18.4 Chronic kidney disease, stage 4 (severe); Z68.30 Body mass index [BMI] 30.0-30.9, adult; Z79.4 Long term (current) use of insulin; Z79.82 Long term (current) use of aspirin; Z91.19 Patient's noncompliance with other medical treatment and regimen
CPT/HCPCS: 80048; 85025; 93971; 99285; A4216

== ENCOUNTER 2021-09-14 08:10 | Emergency (ER) | payer MEDICARE, MEDICAID, SELFPAY ==
[2021-09-14 08:11] VITALS: BP 117/66; PULSE 84; RESP 14; TEMP 36.1; O2SAT 97; BMI 33.2
--- NOTE | 2021-09-14 08:23 | RAD_ITS ---
STUDY: X-RAY CHEST REASON FOR EXAM: Male, 50 years old. Dyspnea. Cough, chest congestion and chills. TECHNIQUE: Single AP portable view of the chest. COMPARISON: None. FINDINGS: EKG electrodes are seen. Mild increased markings at the right lung base suggestive of right basilar atelectasis and/or early infiltrate. There is no demonstrated pleural abnormality. Normal size heart. Normal mediastinum and reena. Normal visualized pulmonary arteries. Normal visualized aortic arch and descending thoracic aorta. Normal visualized thoracic spine. Normal visualized ribs, clavicles, and shoulders. There is no demonstrated abnormality of the visualized soft tissue structures of the upper abdomen. RAD/Chest 1 View (Portable) IMPRESSION: Mild degree of increased markings in the medial aspect of the right lung base. Electronically Signed: Tristan France MD at 10:06 EST , Service support ,
--- NOTE | 2021-09-14 08:23 | EKG12_ITS ---
Test Reason : SOB Blood Pressure : / mmHG Vent. Rate : 087 BPM Atrial Rate : 087 BPM P-R Int : 176 ms QRS Dur : 118 ms QT Int : 370 ms P-R-T Axes : 025 -65 043 degrees QTc Int : 445 ms Normal sinus rhythm Left anterior fascicular block Anteroseptal infarct age undetermined Abnormal ECG Confirmed by ALEXEY NORTON, ADRIANO ([id number]), associate entertainment editor GRAEME ACEVEDO ([id number]) on 09/19/2021 1:40:14 PM Referred By: CATALINO Confirmed By:ADRIANO BLACKBURN MD
--- NOTE | 2021-09-14 08:24 | EDS_ITS ---
HPI History of Present Illness Chief Complaint: General Illness Detail of Chief Complaint: Cough and chest pain and diarrhea Informant: patient Narrative Narrative: Patient presents with cough and diarrhea that started about 2 weeks ago. Patient thought he had a common cold initially. He has had intermittent fever and chills. Cough been productive at times of some yellow sputum. He complains of shortness of breath with activity. He describes some retrosternal chest pain that is sharp and worse with deep breath and movement. Patient has been vaccinated against COVID but has not had the booster. Patient tells me 6 months ago he had a kidney transplant. Patient has been compliant with his rejection medicines. Patient tells me had a fever yesterday to 102. He denies urinary symptoms. He denies sick contacts. He denies abdominal pain or vomiting. Prior similar symptoms: No PFSH [facility], [facility] Medical History (Updated 09/14/21 @ 11:[address] Toni Nelson, ) Acute hypoxemic respiratory failure Acute on chronic diastolic CHF (congestive heart failure) Acute respiratory failure with hypoxia ILDA (acute kidney injury) Anasarca associated with disorder of kidney Anemia of chronic renal failure, stage 4 (severe) Anxiety and depression Atherosclerotic heart disease of [place] coronary artery without angina pectoris Autonomic neuropathy Blind left eye Cellulitis and abscess of right leg Chewing tobacco nicotine dependence Chronic renal failure, stage 4 (severe) Chronic ulcer of 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 Diabetes mellitus type II, uncontrolled Diabetic nephropathy Diabetic neuropathy Diabetic retinopathy Dyspnea Essential hypertension Fistula (~12/2018) GERD (gastroesophageal reflux disease) History of acute myocardial infarction History of left heart catheterization (LHC) (~06/26/11) HLD (hyperlipidemia) Hypertensive emergency Hypoglycemia Hypokalemia Kidney failure Kidney stones Noncompliance Obesity (BMI 30-39.9) Pneumonia Problem with dialysis access Pulmonary edema Retention, urine Right leg pain Type 2 diabetes mellitus with diabetic polyneuropathy Vision problems Home Medications atorvastatin 20 mg PO QHS 11/19/17 [History Last Taken 10/05/19] atenolol 100 mg PO DAILY 11/28/17 [History Last Taken 10/06/19] tamsulosin 0.4 mg capsule 0.4 mg PO DAILY cap 01/20/18 [History Last Taken 10/06/19] calcitriol 0.5 mcg PO DAILY 08/04/18 [History Last Taken 10/06/19] aspirin 81 mg PO DAILY@0800 08/21/18 [History Last Taken 10/06/19] calcium acetate(phosphat bind) 667 mg PO TIDCM #90 cap 08/25/18 [Rx Last Taken 10/06/19] acetaminophen 1,000 mg PO Q6H PRN PRN 08/26/18 [History Last Taken 08/26/18] amlodipine 10 mg PO DAILY #0 08/29/18 [Rx Last Taken 12/01/19] furosemide 80 mg PO BID@1000,1800 10/06/19 [History Last Taken 10/06/19] hydralazine 25 mg PO TID 10/06/19 [History Last Taken 12/01/19] insulin lispro See Protocol SQ ACHS 10/06/19 [History Last Taken 10/06/19] insulin glargine 100 unit/mL (3 mL) subcutaneous pen 8 unit SC QHS ml 08/11/20 [History Last Taken Unknown] Allergy/AdvReac Type Severity Reaction Status Date / Time No Known Allergies Allergy Verified 09/14/21 08:13 Family History Mother Heart disease Hypertension Father Cancer Brother Cancer Diabetes Sister Diabetes Surgical History (Updated 09/14/21 @ 08:51 by Svitlana Mancini) History of appendectomy History of arteriovenostomy for renal dialysis (~08/2018) History of artificial lens replacement History of cholecystectomy History of eye surgery Kidney replaced by transplant Status post insertion of dialysis catheter (~08/2018) Social History Smoking Status: Never smoker second hand exposure: No alcohol intake: never substance use type: does not use caffeine: No ROS ROS ED Constitutional Constitutional ED: Reports systems reviewed and no addt'l complaints, except as documented; Denies body ache(s), change in weight or chills Eyes Eyes: Denies acute decrease in peripheral vision, change in vision, double vision or loss of vision ENT ENT ED: Reports none; Denies ear pain, lip swelling, loss taste/smell, neck pain, otalgia or sore throat Cardiovascular Cardiovascular: Reports none and chest pain; Denies abdominal pain, chest pain with activity, leg edema, lightheadedness, palpitations, rapid heart rate or syncope Respiratory/Chest Respiratory/Chest: Reports none, cough and dyspnea; Denies change in mental status, dry cough, hemoptysis, shortness of breath at rest or shortness of breath with exertion Gastrointestinal Gastrointestinal: Reports none and diarrhea; Denies abdominal pain, change in stool character, hematemesis, hematochezia, melena, rectal bleeding or vomiting Genitourinary Genitourinary ED: Reports none; Denies abdominal discomfort, anuria, dysuria, genital pain or polyuria Musculoskeletal Musculoskeletal: Reports none and myalgias; Denies arthralgias, back pain, difficulty walking, extremity pain or muscle weakness Integumentary Reports none; Denies abscess or rash Neurologic Neurologic: Reports none and headache(s); Denies abnormal gait, confusion, focal weakness, frequent falls, loss of vision, numbness, paresthesias, radicular pain, vertigo or weakness Psychiatric Psychiatric: Reports systems reviewed and no addt'l complaints, except as documented and none; Denies behavioral changes, confusion, difficulty concentrating, hallucinations, suicidal ideation, tactile hallucinations or visual hallucinations Endocrine Endocrinology: Denies none, cold intolerance, excessive sweating, fatigue or heat intolerance Hematologic/Lymphatic Hematologic/Lymphatic: Reports none; Denies anemia, easy bleeding or easy bruising Allergic/Immunologic Allergic/Immunologic ED: Denies as per HPI, none, lip swelling, mouth swelling, throat swelling, tongue swelling or hives EXAM Physical Exam Const Vital Signs: 09/14/21 08:11 09/14/21 08:48 Temperature 97.0 F L Temperature Source Temporal Pulse Rate 84 79 Respiratory Rate 14 21 H Respiratory Effort Normal Non-Labored Respiratory Pattern Normal Blood Pressure 117/66 Blood Pressure Mean 83 Pulse Ox 97 Oxygen Delivery Method Room Air Positive well nourished and well developed General Appearance ED: well developed and NAD HEENT Reports TM's clear and moist mucous membranes normocephalic and atraumatic; Negative for trauma or tenderness Tympanic Membrane ED: Yes TM's clear Eyes PERRL and EOMs intact bilaterally General Eye ED: Negative for pale conjunctiva or scleral icterus Neck no lymphadenopathy, supple and no JVD General: Negative for tenderness Chest Wall inspection of chest normal and palpation of chest normal Chest: Negative for tenderness Resp normal respiratory effort and clear to auscultation bilaterally Effort and Inspection: Negative for respiratory distress or pain with movement Auscultation: Negative for rhonchi, wheezes or diminished lung sounds Cardio regular rate, regular rhythm, S1 normal heart sound, S2 normal heart sound and no murmurs Peripheral Pulses: pulses 2+ throughout GI normal to inspection, nondistended, normoactive bowel sounds, soft to palpation, non-tender, non-distended and no masses Back/Spine no CVA tenderness and no thoracic nor lumbar tenderness Extremity normal to inspection General Extremety ED: Negative for edema General Extremity: Negative for edema Neuro oriented x3, CN's II-XII intact bilaterally, no sensory deficits noted and gait normal Sensorium / Orientation: awake, alert, oriented to person, oriented to place and oriented to time Motor Exam: strength 5/5 throughout and strength abnormal Psych mental status grossly normal Skin no rashes or lesions noted and no wounds MDM MDM MDM Narrative Medical decision making narrative: IV line established on arrival. Patient was given normal saline and maintenance of 150 mils an hour. Patient was found to be positive for COVID-19. His D-dimer was elevated therefore CTA was obtained which was negative for PE. Patient was noted to have COVID pneumonitis. At this point given that he had symptoms for 2 weeks he does not qualify for monoclonal antibody infusion. He is not hypoxic and vital signs are stable. Patient will be discharged home and advised to return if increased difficulty breathing or pulse ox below 90%. Patient has a pulse oximeter at home. Lab Data Attestation: I reviewed the patient's lab results. Labs: Laboratory Results - last 24 hr 09/14/21 09/14/21 09/14/21 08:45 08:45 08:45 WBC 5.5 RBC 5.61 Hgb 17.2 H Hct 52.8 MCV 94.1 H MCH 30.7 MCHC 32.6 RDW Std Deviation 40.8 RDW Coeff of Tomy 11.8 Plt Count 144 L MPV 11.3 Immature Gran % (Auto) 0.500 Neut % (Auto) 79.3 H Lymph % (Auto) 9.9 L Perkins % (Auto) 9.9 Eos % (Auto) 0.2 Baso % (Auto) 0.2 Absolute Neuts (auto) 4.4 Absolute Lymphs (auto) 0.54 L Nucleated RBC % 0 Differential Comment SCANNED D-Dimer Quant (PE/DVT) 0.70 H* Sodium 139 Potassium 4.3 Chloride 107 Carbon Dioxide 24.0 Anion Gap 8 BUN 21 H Creatinine 1.76 H Estim Creat Clear Calc 47.50 Est GFR (MDRD) Af Amer 52 L Est GFR (MDRD) Non-Af 43 L BUN/Creatinine Ratio 11.9 Glucose 98 Lactic Acid Calcium 9.1 Troponin I High Sens 24 Urine Color Urine Clarity Urine pH Ur Specific [place] Urine Protein Urine Glucose (UA) Urine Ketones Urine Occult Blood Urine Nitrite Urine Bilirubin Urine Urobilinogen Ur Leukocyte Esterase Urine RBC Urine WBC Ur Squamous Epith Cells Urine Bacteria Urine Mucus 09/14/21 09/14/21 08:45 09:35 WBC RBC Hgb Hct MCV MCH MCHC RDW Std Deviation RDW Coeff of Tomy Plt Count MPV Immature Gran % (Auto) Neut % (Auto) Lymph % (Auto) Perkins % (Auto) Eos % (Auto) Baso % (Auto) Absolute Neuts (auto) Absolute Lymphs (auto) Nucleated RBC % Differential Comment D-Dimer Quant (PE/DVT) Sodium Potassium Chloride Carbon Dioxide Anion Gap BUN Creatinine Estim Creat Clear Calc Est GFR (MDRD) Af Amer Est GFR (MDRD) Non-Af BUN/Creatinine Ratio Glucose Lactic Acid 1.1 Calcium Troponin I High Sens Urine Color Yellow Urine Clarity Clear Urine pH 5.0 Ur Specific [place] 1.015 Urine Protein 15 H Urine Glucose (UA) Normal Urine Ketones Negative Urine Occult Blood 250 H Urine Nitrite Negative Urine Bilirubin Negative Urine Urobilinogen Normal Ur Leukocyte Esterase Negative Urine RBC 5-10 SEEN Urine WBC 0 SEEN Ur Squamous Epith Cells 0 SEEN Urine Bacteria 0 SEEN Urine Mucus 0 SEEN Radiography Diagnostic Testing: Clinical Impression(s) from Imaging Studies Chest X-Ray 09/14/21 08:23 IMPRESSION: Mild degree of increased markings in the medial aspect of the right lung base. Electronically Signed: Tristan France MD at 10:06 EST , Service support , Chest CTA 09/14/21 09:36 IMPRESSION: Patchy areas of infiltrates and groundglass appearance as described in both lungs in a preferential peripheral location suggests of pneumonitis associated with Covid. Electronically Signed: Tristan France MD at 10:09 EST , Service support , 1 view chest x-ray obtained showed increased markings both bases. Radiology f elt there was increased markings in the right base. EKG Initial EKG: Attestation: I personally reviewed and interpreted this EKG as follows: Comments: Sinus rhythm with a ventricular rate of 80 bpm with left anterior fascicular block Discharge Plan Triage Chief Complaint: General Illness ED Provider: Toni Nelson Dx/Rx/DC Orders Clinical Impression: COVID-19 Instructions: Caring for Someone Who Has COVID-19 Prescriptions: No Action insulin glargine 100 unit/mL (3 mL) insulin pen 8 unit SC QHS RF: 0 atorvastatin 20 MG tablet 20 mg PO QHS RF: 0 atenolol 100 MG tablet 100 mg PO DAILY RF: 0 tamsulosin 0.4 mg capsule,extended release 24hr 0.4 mg PO DAILY RF: 0 calcitriol 0.25 MCG capsule 0.5 mcg PO DAILY RF: 0 aspirin 81 MG tablet,chewable 81 mg PO DAILY@0800 RF: 0 calcium acetate(phosphat bind) 667 MG capsule 667 mg PO TIDCM Qty: 90 RF: 0 acetaminophen 500 MG tablet 1,000 mg PO Q6H PRN PRN (Reason: Pain) RF: 0 amlodipine 5 MG tablet 10 mg PO DAILY Qty: 0 RF: 0 hydralazine 25 MG tablet 25 mg PO TID RF: 0 furosemide 80 MG tablet 80 mg PO BID@1000,1800 RF: 0 insulin lispro 100 UNIT/ML insulin pen See Protocol unit SQ ACHS RF: 0 Primary Care Provider: Zaida Mcneil Referrals: Zaida Mcneil MD [Primary Care Provider] - Disposition Disposition: Home, Self Care
[2021-09-14 08:48] VITALS: PULSE 79; RESP 21
[2021-09-14] MEDS: 0.9% Normal Saline 1,000 ML 150 ML IV (09:03)
[2021-09-14 09:08] LABS: Absolute Lymphocyte Count 0.54 X10^3/uL (0.83-4.51); Absolute Neutrophil Count 4.4 X10^3/uL (2.0-7.7); Basophil# 0.01 X10^3/uL; Basophil% 0.2 % (0-1); Eosinophil# 0.01 X10^3/uL; Eosinophils% 0.2 % (0-5); Hematocrit 52.8 % (40-54); Hemoglobin 17.2 g/dL (13.0-16.5); Lymphocyte # 0.54 X10^3/ul (0.83-4.51); Lymphocyte % 9.9 % (19-41); Mean Corp Hgb Conc 32.6 g/dL (32-36); Mean Corpuscular Hgb 30.7 pg (27.0-32.0); Mean Corpuscular Volume 94.1 fL (80-94); Mean Platelet Vol. 11.3 fl (6.2-12.0); Monocyte# 0.54 X10^3/uL; Monocyte% 9.9 % (0-10); NRBC Flagged by Analyzer 0 % (0-5); Neutrophil # 4.35 X10^3/uL (2.7-7.7); Neutrophil % 79.3 % (47-70); POSITIVE DIFFERENTIAL YES; Platelet Count 144 K/mm3 (150-450); RBC Distribution Width CV 11.8 % (11.6-14.6); RBC Distribution Width SD 40.8 fl (35.1-43.9); Red Blood Count 5.61 M/mm3 (4.6-6.2); White Blood Count 5.5 K/mm3 (4.4-11.0)
[2021-09-14 09:18] LABS: Differential Indicated SCAN CRITERIA MET
[2021-09-14 09:25] LABS: Anion Gap 8 (5-15); BUN 21 mg/dL (7-18); BUN/Creat Ratio 11.9 RATIO (10-20); Calcium,Total 9.1 mg/dL (8.5-10.1); Chloride 107 mmol/L (98-107); Creatinine, Serum 1.76 mg/dL (0.70-1.30); EST Glomerular Filtration Rate 43 mL/min (>60); Est Glom Filt Rate - Afr Amer 52 mL/min (>60); Glucose 98 mg/dL (74-106); Potassium 4.3 mmol/L (3.5-5.1); Sodium Level 139 mmol/L (136-145); Troponin-I HS 24 pg/mL (3.0-78.0)
[2021-09-14 09:33] LABS: Lactic Acid 1.1 mmol/L (0.4-1.9)
--- NOTE | 2021-09-14 09:36 | CT_ITS ---
STUDY: CTA CHEST REASON FOR EXAM: Male, 50 years old. Chest pain, elevated d-dimer RADIATION DOSAGE (If Supplied By Facility): CTDIvol = ( 11.22 ) mGy, DLP = ( 547.98 ) mGycm TECHNIQUE: The examination was performed with the intravenous administration of IV 100mL Isovue-370. Post-processing of the angiographic images was performed, with multiplanar reformation and 3D reconstruction. Individualized dose optimization techniques were used for this CT. COMPARISON: Comparison is made with prior chest radiograph done earlier today. FINDINGS: Normal enhancement of the main pulmonary artery and right and left pulmonary arteries. Normal enhancement of the bilateral peripheral pulmonary arteries. There is no demonstrated pulmonary embolism. Normal thoracic aorta and visualized great vessels. There is no demonstrated aortic dissection. Normal heart and pericardium. Normal mediastinum. Normal hilar regions. Normal visualized trachea and bronchi. The lungs are well expanded. Focal areas of groundglass appearance in the peripheral lateral aspect of both upper lobes slightly more prominent on the left side. Patchy peripheral infiltrates in both lower lobes worse on the left side. Patchy infiltrates in the lateral aspect of the right middle lobe. Normal pleura. Normal chest wall structures. Normal osseous structures. The patient is status post cholecystectomy. Small hiatal hernia. CT/CTA Chest W/WO Contrast IMPRESSION: Patchy areas of infiltrates and groundglass appearance as described in both lungs in a preferential peripheral location suggests of pneumonitis associated with Covid. Electronically Signed: Tristan France MD at 10:09 EST , Service support ,
[2021-09-14 09:38] LABS: Bacteria 0 SEEN /hpf (None Seen); Mucous, Urine 0 SEEN /hpf (<or=2+); Squamous Epithelial Cells - UA 0 SEEN /hpf (0-5); White Blood Cells 0 SEEN /hpf (0-5)
[2021-09-14 09:39] LABS: Differential Comment SCANNED
[2021-09-14 09:40] LABS: Color, Urine Yellow (Yellow); Glucose, Dipstick Normal (Normal); Ketone-Dipstick Negative (Negative); Leukocyte Esterase-Dipstick Negative /ul (Negative); Nitrite-Dipstick Negative (Negative); Occult Blood-Urine 250 /ul (Negative); Protein-Dipstick 15 mg/dl (Negative); Specific Gravity, Urine 1.015 (1.002-1.030); Urine Bilirubin Dipstick Negative (Negative); Urine Clarity Clear (Clear); Urine Urobilinogen Normal (Normal)
[2021-09-14 09:54] LABS: Red Blood Cells-Urine 5-10 SEEN /hpf (0-5)
[2021-09-14 13:15] VITALS: PULSE 88; RESP 17; O2SAT 96
== END 2021-09-14 13:17 | disposition home or self-care (01) ==
PROVIDERS: Emergency Provider Emergency Medicine; PCP Internal Medicine; Visit Provider Emergency Medicine
DX: U07.1 COVID-19 (principal); I25.10 Atherosclerotic heart disease of native coronary artery without angina pectoris; I25.2 Old myocardial infarction
CPT/HCPCS: 96360; 96361; 99284; 36415; 71045; 71275; 80048; 81001; 83605; 84484; 85025; 85379; 87040; 87426; 93005; J7030; Q9967; A4216

== ENCOUNTER 2021-09-17 20:23 | Inpatient (IN) | payer MEDICARE, MEDICAID, SELFPAY ==
[2021-09-17 20:24] VITALS: BP 139/68; PULSE 88; RESP 20; TEMP 36; O2SAT 90; BMI 33.1
--- NOTE | 2021-09-17 20:47 | EKG12_ITS ---
Test Reason : GENERAL ILLNESS Blood Pressure : / mmHG Vent. Rate : 080 BPM Atrial Rate : 080 BPM P-R Int : 180 ms QRS Dur : 104 ms QT Int : 376 ms P-R-T Axes : 038 -69 044 degrees QTc Int : 433 ms Normal sinus rhythm Left anterior fascicular block Abnormal ECG POOR R WAVE PROGRESSION ANTERIOR WA, AGE UNDETERMINED, CANNOT BE EXCLUDED Confirmed by ALEXEY NORTON, ADRIANO ([id number]), editor sound GRAEME ACEVEDO ([id number]) on 09/18/2021 10:16:55 AM Referred By: RICHARD Confirmed By:ADRIANO BLACKBURN MD
--- NOTE | 2021-09-17 20:48 | ED.VIS.DYS ---
HPI History of Present Illness Chief Complaint: Shortness of Breath Detail of Chief Complaint: Shortness of breath x2 days Informant: patient Onset/Context/Timing Onset: Weeks (2) Narrative Narrative: Patient presents to the emergency department with complaint of shortness of breath that started 2 days ago. Patient states that he is day 10 of symptoms of COVID-19. Patient was seen in the emergency department here 4 days ago and had a positive COVID test. Patient has been immunized but did not have the booster. Patient also with history of kidney transplant in March 2021. Patient is on immunosuppressants. Patient complains of chest pain with breathing and at times coughing up some yellow phlegm. Patient's states that he is not on home O2 but his O2 sats have been as low as 86 today and she was having a hard time keeping them up above 88 to 89% at rest. Recent Illness/Hospitalization: No [facility] Medical History (Updated 09/17/21 @ 22:[address] Toni Nelson, DO) Acute hypoxemic respiratory failure Acute on chronic diastolic CHF (congestive heart failure) Acute respiratory failure with hypoxia ILDA (acute kidney injury) Anasarca associated with disorder of kidney Anemia of chronic renal failure, stage 4 (severe) Anxiety and depression Atherosclerotic heart disease of [place] coronary artery without angina pectoris Autonomic neuropathy Blind left eye Cellulitis and abscess of right leg Chewing tobacco nicotine dependence Chronic renal failure, stage 4 (severe) Chronic ulcer of 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 Diabetes mellitus type II, uncontrolled Diabetic nephropathy Diabetic neuropathy Diabetic retinopathy Dyspnea Essential hypertension Fistula (~12/2018) GERD (gastroesophageal reflux disease) History of acute myocardial infarction History of left heart catheterization (LHC) (~06/26/11) HLD (hyperlipidemia) Hypertensive emergency Hypoglycemia Hypokalemia Kidney failure Kidney stones Noncompliance Obesity (BMI 30-39.9) Pneumonia Problem with dialysis access Pulmonary edema Retention, urine Right leg pain Type 2 diabetes mellitus with diabetic polyneuropathy Vision problems Home Medications atorvastatin 20 mg PO QHS 11/19/17 [History Last Taken 10/05/19] atenolol 100 mg PO DAILY 11/28/17 [History Last Taken 10/06/19] tamsulosin 0.4 mg capsule 0.4 mg PO DAILY cap 01/20/18 [History Last Taken 10/06/19] calcitriol 0.5 mcg PO DAILY 11/26/18 [History Last Taken 10/06/19] aspirin 81 mg PO DAILY@0800 08/21/18 [History Last Taken 10/06/19] calcium acetate(phosphat bind) 667 mg PO TIDCM #90 cap 08/25/18 [Rx Last Taken 10/06/19] acetaminophen 1,000 mg PO Q6H PRN PRN 08/26/18 [History Last Taken 08/26/18] amlodipine 10 mg PO DAILY #0 08/29/18 [Rx Last Taken 12/01/19] furosemide 80 mg PO BID@1000,1800 10/06/19 [History Last Taken 10/06/19] hydralazine 25 mg PO TID 10/06/19 [History Last Taken 12/01/19] insulin lispro See Protocol SQ ACHS 10/06/19 [History Last Taken 10/06/19] insulin glargine 100 unit/mL (3 mL) subcutaneous pen 8 unit SC QHS ml 08/11/20 [History Last Taken Unknown] Allergy/AdvReac Type Severity Reaction Status Date / Time No Known Allergies Allergy Verified 09/14/21 08:13 Family History Mother Heart disease Hypertension Father Cancer Brother Cancer Diabetes Sister Diabetes Surgical History History of appendectomy History of arteriovenostomy for renal dialysis (~08/2018) History of artificial lens replacement History of cholecystectomy History of eye surgery Kidney replaced by transplant Status post insertion of dialysis catheter (~08/2018) Social History Smoking Status: Never smoker second hand exposure: No alcohol intake: never substance use type: does not use caffeine: No ROS ROS ED Constitutional Constitutional ED: Reports systems reviewed and no addt'l complaints, except as documented, chills and fever(s); Denies body ache(s) or change in weight Eyes Eyes: Denies acute decrease in peripheral vision, change in vision, double vision or loss of vision ENT ENT ED: Reports none; Denies ear pain, lip swelling, loss taste/smell, neck pain, otalgia or sore throat Cardiovascular Cardiovascular: Reports none; Denies abdominal pain, chest pain with activity, leg edema, lightheadedness, palpitations, rapid heart rate or syncope Respiratory/Chest Respiratory/Chest: Reports none, cough and dyspnea; Denies change in mental status, dry cough, hemoptysis, shortness of breath at rest or shortness of breath with exertion Gastrointestinal Gastrointestinal: Reports none; Denies abdominal pain, change in stool character, diarrhea, hematemesis, hematochezia, melena, rectal bleeding or vomiting Genitourinary Genitourinary ED: Reports none; Denies abdominal discomfort, anuria, dysuria, genital pain or polyuria Musculoskeletal Musculoskeletal: Reports none and myalgias; Denies arthralgias, back pain, difficulty walking, extremity pain or muscle weakness Integumentary Reports none; Denies abscess or rash Neurologic Neurologic: Reports none and weakness; Denies abnormal gait, confusion, focal weakness, frequent falls, headache(s), loss of vision, numbness, paresthesias, radicular pain or vertigo Psychiatric Psychiatric: Reports systems reviewed and no addt'l complaints, except as documented and none; Denies behavioral changes, confusion, difficulty concentrating, hallucinations, suicidal ideation, tactile hallucinations or visual hallucinations Endocrine Endocrinology: Denies none, cold intolerance, excessive sweating, fatigue or heat intolerance Hematologic/Lymphatic Hematologic/Lymphatic: Reports none; Denies anemia, easy bleeding or easy bruising Allergic/Immunologic Allergic/Immunologic ED: Denies as per HPI, none, lip swelling, mouth swelling, throat swelling, tongue swelling or hives EXAM Physical Exam Const Vital Signs: 09/17/21 20:24 09/17/21 20:41 09/17/21 22:09 Temperature 96.8 F L 98.9 F Temperature Source Temporal Temporal Pulse Rate 88 90 Respiratory Rate 20 H 18 Respiratory Effort Normal Blood Pressure 139/68 H 139/67 H Blood Pressure Mean 91 91 Pulse Ox 90 92 Oxygen Delivery Method Room Air Room Air Positive well nourished and well developed General Appearance ED: well developed and NAD HEENT Reports TM's clear and moist mucous membranes normocephalic and atraumatic; Negative for trauma or tenderness Tympanic Membrane ED: Yes TM's clear Eyes PERRL and EOMs intact bilaterally General Eye ED: Negative for pale conjunctiva or scleral icterus Neck no lymphadenopathy, supple and no JVD General: Negative for tenderness Chest Wall inspection of chest normal and palpation of chest normal Chest: Negative for tenderness Resp normal respiratory effort and clear to auscultation bilaterally Effort and Inspection: Negative for respiratory distress or pain with movement Auscultation: Negative for rhonchi, wheezes or diminished lung sounds Cardio regular rate, regular rhythm, S1 normal heart sound, S2 normal heart sound and no murmurs Peripheral Pulses: pulses 2+ throughout GI normal to inspection, nondistended, normoactive bowel sounds, soft to palpation, non-tender, non-distended and no masses Back/Spine no CVA tenderness and no thoracic nor lumbar tenderness Extremity normal to inspection General Extremety ED: Negative for edema General Extremity: Negative for edema Neuro oriented x3, CN's II-XII intact bilaterally, no sensory deficits noted and gait normal Sensorium / Orientation: awake, alert, oriented to person, oriented to place and oriented to time Motor Exam: strength 5/5 throughout and strength abnormal Psych mental status grossly normal Skin no rashes or lesions noted and no wounds MDM MDM MDM Narrative Medical decision making narrative: IV line established on arrival. Patient was ambulated in department and his O2 sat dropped to 87% on room air. Patient was placed on 2 L nasal cannula O2. Patient's blood glucose was elevated at 528. Potassium was elevated 5.5. Patient received 12 units of insulin subcu. Patient had a CT scan of the chest 3 days ago that was negative for PE. He has slightly worsening renal function compared to 3 days ago and given his history of kidney transplant I do not feel another scan is indicated. Patient case will be discussed with hospitalist evaluate for admission Lab Data Attestation: I reviewed the patient's lab results. Labs: Laboratory Results - last 24 hr 09/17/21 09/17/21 09/17/21 21:10 21:10 21:10 WBC 5.9 RBC 5.30 Hgb 15.9 Hct 49.2 MCV 92.8 MCH 30.0 MCHC 32.3 RDW Std Deviation 39.7 RDW Coeff of Tomy 11.5 L Plt Count 122 L MPV 11.8 Immature Gran % (Auto) 0.300 Neut % (Auto) 85.9 H Lymph % (Auto) 5.5 L [place] % (Auto) 8.3 Eos % (Auto) 0.0 Baso % (Auto) 0.0 Absolute Neuts (auto) 5.0 Absolute Lymphs (auto) 0.32 L Nucleated RBC % 0 Differential Comment SCANNED Platelet Estimate SLT DEC RBC Morphology NORM C+C D-Dimer Quant (PE/DVT) 1.02 H* Sodium 133 L Potassium 5.5 H Chloride 105 Carbon Dioxide 20.0 L Anion Gap 8 BUN 30 H Creatinine 1.96 H Estim Creat Clear Calc 42.65 Est GFR (MDRD) Af Amer 46 L Est GFR (MDRD) Non-Af 38 L BUN/Creatinine Ratio 15.3 Glucose 528 H* Lactic Acid Calcium 8.9 Troponin I High Sens 21 09/17/21 21:10 WBC RBC Hgb Hct MCV MCH MCHC RDW Std Deviation RDW Coeff of Tomy Plt Count MPV Immature Gran % (Auto) Neut % (Auto) Lymph % (Auto) [place] % (Auto) Eos % (Auto) Baso % (Auto) Absolute Neuts (auto) Absolute Lymphs (auto) Nucleated RBC % Differential Comment Platelet Estimate RBC Morphology D-Dimer Quant (PE/DVT) Sodium Potassium Chloride Carbon Dioxide Anion Gap BUN Creatinine Estim Creat Clear Calc Est GFR (MDRD) Af Amer Est GFR (MDRD) Non-Af BUN/Creatinine Ratio Glucose Lactic Acid 2.2 H* Calcium Troponin I High Sens Radiography Chest X-Ray - ED: 1 View Diagnostic Testin view chest x-ray obtained interpreted by myself as bilateral infiltrates. EKG Initial EKG: Comments: Sinus rhythm with a ventricular rate of 87 bpm with old anterior septal infarct noted. When compared with prior EKG no significant changes noted Prior EKG tracings: available for review Prior: Unchanged Discharge Plan Triage Chief Complaint: Shortness of Breath ED Provider: Toni Nelson Dx/Rx/DC Orders Clinical Impression: COVID-19, Hypoxemia, Hyperglycemia, Hyperkalemia Prescriptions: No Action insulin glargine 100 unit/mL (3 mL) insulin pen 8 unit SC QHS RF: 0 atorvastatin 20 MG tablet 20 mg PO QHS RF: 0 atenolol 100 MG tablet 100 mg PO DAILY RF: 0 tamsulosin 0.4 mg capsule,extended release 24hr 0.4 mg PO DAILY RF: 0 calcitriol 0.25 MCG capsule 0.5 mcg PO DAILY RF: 0 aspirin 81 MG tablet,chewable 81 mg PO DAILY@0800 RF: 0 calcium acetate(phosphat bind) 667 MG capsule 667 mg PO TIDCM Qty: 90 RF: 0 acetaminophen 500 MG tablet 1,000 mg PO Q6H PRN PRN (Reason: Pain) RF: 0 amlodipine 5 MG tablet 10 mg PO DAILY Qty: 0 RF: 0 hydralazine 25 MG tablet 25 mg PO TID RF: 0 furosemide 80 MG tablet 80 mg PO BID@1000,1800 RF: 0 insulin lispro 100 UNIT/ML insulin pen See Protocol unit SQ ACHS RF: 0 Primary Care Provider: Zaida Mcneil Referrals: Zaida Mcneil MD [Primary Care Provider] - Disposition Disposition: Acute Care Hospital [facility]
[2021-09-17 21:24] LABS: Absolute Lymphocyte Count 0.32 X10^3/uL (0.83-4.51); Hematocrit 49.2 % (40-54); Hemoglobin 15.9 g/dL (13.0-16.5); Lymphocyte # 0.32 X10^3/ul (0.83-4.51); Lymphocyte % 5.5 % (19-41); Mean Corp Hgb Conc 32.3 g/dL (32-36); Mean Corpuscular Volume 92.8 fL (80-94); Mean Platelet Vol. 11.8 fl (6.2-12.0); Monocyte# 0.49 X10^3/uL; Monocyte% 8.3 % (0-10); NRBC Flagged by Analyzer 0 % (0-5); Neutrophil # 5.04 X10^3/uL (2.7-7.7); Neutrophil % 85.9 % (47-70); POSITIVE DIFFERENTIAL YES; Platelet Count 122 K/mm3 (150-450); RBC Distribution Width CV 11.5 % (11.6-14.6); RBC Distribution Width SD 39.7 fl (35.1-43.9); White Blood Count 5.9 K/mm3 (4.4-11.0)
[2021-09-17 21:25] VITALS: O2SAT 92
[2021-09-17 21:25] LABS: Differential Indicated SCAN CRITERIA MET
--- NOTE | 2021-09-17 21:25 | RAD_ITS ---
HISTORY: dyspnea EXAMINATION/TECHNIQUE: XR Chest 1 View: COMPARISON: 09/14/2021 FINDINGS: LINES/DEVICES: None. LUNGS: Patchy bilateral basilar airspace opacities with mild interstitial thickening. No effusion. No pneumothorax. MEDIASTINUM: No cardiomegaly. MUSCULOSKELETAL: No acute osseous finding. RAD/Chest 1 View (Portable) IMPRESSION: Bilateral patchy airspace disease concerning for pneumonia. at 2356 Reported and signed by: Gen Carlton MD Electronically Signed: Gen Carlton MD at 23:55 EST Tel , Service support ,
[2021-09-17] MEDS: dexAMETHasone 10 MG/ML Vial 6 MG IV (21:33)
[2021-09-17] MEDS: 0.9% Normal Saline 1,000 ML 150 ML IV (21:33)
[2021-09-17 21:44] LABS: D-Dimer Quantitative (DVT/PE) 1.02 FEU/ug/m (0.27-0.49)
[2021-09-17 21:49] LABS: Lactic Acid 2.2 mmol/L (0.4-1.9)
[2021-09-17 22:00] LABS: Anion Gap 8 (5-15); BUN 30 mg/dL (7-18); BUN/Creat Ratio 15.3 RATIO (10-20); Calcium,Total 8.9 mg/dL (8.5-10.1); Chloride 105 mmol/L (98-107); Creatinine, Serum 1.96 mg/dL (0.70-1.30); EST Glomerular Filtration Rate 38 mL/min (>60); Est Glom Filt Rate - Afr Amer 46 mL/min (>60); Estimated Creatinine Clearance 42.65 ml/min; Glucose 528 mg/dL (74-106); Potassium 5.5 mmol/L (3.5-5.1); Sodium Level 133 mmol/L (136-145); Troponin-I HS 21 pg/mL (3.0-78.0)
[2021-09-17 22:05] LABS: Differential Comment SCANNED; Platelet Estimate SLT DEC (ADEQ); Red Cell Morphology NORM C+C NORMAL (NORM C&C)
[2021-09-17 22:09] VITALS: BP 139/67; PULSE 90; RESP 18; TEMP 37.2; O2SAT 92
[2021-09-17] MEDS: Insulin Lispro 100 UNIT/ML INSULN.PEN 12 UNIT SC (22:14)
[2021-09-17 22:15] VITALS: BP 139/67; PULSE 91; RESP 18; TEMP 37.2; O2SAT 94
--- NOTE | 2021-09-17 22:33 | NURSING ---
MED SURG AGYEPONG COVID 19, HYPOXIA, HYPERGLYCEMIA
--- NOTE | 2021-09-17 22:35 | HP.PCM.HOS_ITS ---
HPI - General General Date of Admission: 09/17/21 HPI Narrative ITALO BURGOS, is a 50 M with a significant history of a kidney transplants from diabetes mellitus who presents to the emergency department with 10 day history of progressively worsening Covid-like symptoms. He described cold-like symptoms as a productive cough of yellow-greenish sputum; shortness of breath; fever with highest temperature of 102.8 Fahrenheit. Further he has chills; muscle aches; fatigue; anorexia; dysgeusia; and anosmia. He denies nausea and vomiting. He reports diarrhea. Reportedly at home his oxygen saturation was 86% to 88%. At the emergency department patient was found to have oxygen saturation of 90% on room air and with ambulation is oxygen saturation dropped to 87%. He tested 3 days ago for COVID-19. CTA done 3 days ago was negative for PE. A COVID-19 vaccination status. Patient has received 2 COVID-19 vaccinations without a booster. [facility] Medical History Acute hypoxemic respiratory failure Acute on chronic diastolic CHF (congestive heart failure) Acute respiratory failure with hypoxia ILDA (acute kidney injury) Anasarca associated with disorder of kidney Anemia of chronic renal failure, stage 4 (severe) Anxiety and depression Atherosclerotic heart disease of [place] coronary artery without angina pectoris Autonomic neuropathy Blind left eye Cellulitis and abscess of right leg Chewing tobacco nicotine dependence Chronic renal failure, stage 4 (severe) Chronic ulcer of 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 Diabetes mellitus type II, uncontrolled Diabetic nephropathy Diabetic neuropathy Diabetic retinopathy Dyspnea Essential hypertension Fistula (~12/2018) GERD (gastroesophageal reflux disease) History of acute myocardial infarction History of left heart catheterization (LHC) (~06/26/11) HLD (hyperlipidemia) Hypertensive emergency Hypoglycemia Hypokalemia Kidney failure Kidney stones Noncompliance Obesity (BMI 30-39.9) Pneumonia Problem with dialysis access Pulmonary edema Retention, urine Right leg pain 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 Vision problems Home Medications atorvastatin 20 mg PO QHS 11/19/17 [History Last Taken 10/05/19] atenolol 100 mg PO DAILY 11/28/17 [History Last Taken 10/06/19] tamsulosin 0.4 mg capsule 0.4 mg PO DAILY cap 01/20/18 [History Last Taken 10/06/19] calcitriol 0.5 mcg PO DAILY 08/04/18 [History Last Taken 10/06/19] aspirin 81 mg PO DAILY@0800 08/21/18 [History Last Taken 10/06/19] calcium acetate(phosphat bind) 667 mg PO TIDCM #90 cap 08/25/18 [Rx Last Taken 10/06/19] acetaminophen 1,000 mg PO Q6H PRN PRN 08/26/18 [History Last Taken 08/26/18] amlodipine 10 mg PO DAILY #0 08/29/18 [Rx Last Taken 12/01/19] furosemide 80 mg PO BID@1000,1800 10/06/19 [History Last Taken 10/06/19] hydralazine 25 mg PO TID 10/06/19 [History Last Taken 12/01/19] insulin lispro See Protocol SQ ACHS 10/06/19 [History Last Taken 10/06/19] insulin glargine 100 unit/mL (3 mL) subcutaneous pen 8 unit SC QHS ml 08/11/20 [History Last Taken Unknown] Allergy/AdvReac Type Severity Reaction Status Date / Time No Known Allergies Allergy Verified 09/14/21 08:13 Family History Mother Heart disease Hypertension Father Cancer Brother Cancer Diabetes Sister Diabetes Surgical History History of appendectomy History of arteriovenostomy for renal dialysis (~08/2018) History of artificial lens replacement History of cholecystectomy History of eye surgery Kidney replaced by transplant Status post insertion of dialysis catheter (~08/2018) Social History Smoking Status: Never smoker second hand exposure: No alcohol intake: never substance use type: does not use caffeine: No ROS ROS Narrative Constitutional: Reports fever, chills, fatigue, anorexia. Denies change in weight Eyes: Denies blurry vision, change in eye color, change in vision, discharge from eye(s), double vision, erythema, eye pain, loss of vision or other HEENT: Denies abnormal hearing, dysphagia, ear pain, epistaxis, headache(s), hearing loss, nasal congestion, nasal discharge, post nasal drip, sinus pressure, sore throat or other Cardiovascular: Denies chest pain or palpitations. Respiratory/Chest: Reports shortness of breath. Reports productive cough. Denies wheezes. Gastrointestinal: Reports diarrhea. Denies abdominal pain, coffee ground emesis, constipation, dyspepsia, hematemesis, hematochezia, melena, nausea, vomiting or other Genitourinary: Denies burning urination, difficulty urinating, dysuria, hematuria, nocturia, urinary frequency, urinary hesitancy, urinary incontinence, urinary urgency or other Musculoskeletal: Denies arthralgias, back pain, joint pain, joint stiffness, kaela nt swelling, myalgias, neck pain or other Neurologic: Denies abnormal gait, abnormal speech, confusion, disequilibrium, dizziness, focal weakness, headache(s), numbness, paresthesias, seizure-like ac tivity, seizures, syncope, tingling, tremor(s) or other Psychiatric: Denies anxiety, depression, homicidal ideation, suicidal ideation or other Endocrinology: Denies change in body appearance, cold intolerance, excessive sweating, heat intolerance, polydipsia, polyuria or other Hematologic/Lymphatic: Denies anemia, easy bleeding, easy bruising, lymphadenopathy or other Integumentary: Denies rashes Allergic/Immunologic: Denies rhinitis, hives, eczema, asthma or other Vital Signs Vital Signs Vital Signs: 09/17/21 20:24 09/17/21 20:41 09/17/21 22:09 Temperature 96.8 F L 98.9 F Temperature Source Temporal Temporal Pulse Rate 88 90 Respiratory Rate 20 H 18 Respiratory Effort Normal Blood Pressure 139/68 H 139/67 H Blood Pressure Mean 91 91 Pulse Ox 90 92 Oxygen Delivery Method Room Air Room Air 09/17/21 22:15 Temperature 98.9 F Temperature Source Temporal Pulse Rate 91 Respiratory Rate 18 Respiratory Effort Blood Pressure 139/67 H Blood Pressure Mean 91 Pulse Ox 94 Oxygen Delivery Method Room Air Weight Weight: 98.883 kg Body Mass Index (BMI) 33.1 Physical Exam Narrative Physical exam: General: Well-nourished, well-developed. Head: Normocephalic, atraumatic, no tenderness Eyes: PERRLA, EOMI ENT, no trauma, moist mucous membranes, no rhinorrhea Neck: Nontender, full range of motion, no spinal tenderness, deformities, step- off CVS: Regular rate and rhythm. S1-S2 present. No murmur, gallop or rub. Respiratory : Tachypnea; Rales. Chest wall nontender, no wheezing Abdomen: Soft, nontender, nondistended, normal bowel sounds, no masses : Deferred Back: Nontender, no CVA tenderness, no midline spinal tenderness, deformities, step-offs Extremities: Nontender full range of motion, no trauma Skin: Normal color, no trauma, abrasions Neuro: Alert, oriented, cranial nerves II through XII grossly intact. Psychiatry: Depressed and anxious. Results Lab / Micro Data Result Diagrams: 09/17/21 21:10 09/17/21 21:10 Labs: Laboratory Results - last 24 hr 09/17/21 21:10: WBC 5.9, RBC 5.30, Hgb 15.9, Hct 49.2, MCV 92.8, MCH 30.0, MCHC 32.3, RDW Std Deviation 39.7, RDW Coeff of Tomy 11.5 L, Plt Count 122 L, MPV 11.8, Immature Gran % (Auto) 0.300, Neut % (Auto) 85.9 H, Lymph % (Auto) 5.5 L, [place] % (Auto) 8.3, Eos % (Auto) 0.0, Baso % (Auto) 0.0, Absolute Neuts (auto) 5.0, Absolute Lymphs (auto) 0.32 L, Nucleated RBC % 0, Differential Comment SCANNED, Platelet Estimate SLT DEC, RBC Morphology NORM C+C 09/17/21 21:10: D-Dimer Quant (PE/DVT) 1.02 H* 09/17/21 21:10: Sodium 133 L, Potassium 5.5 H, Chloride 105, Carbon Dioxide 20.0 L, Anion Gap 8, BUN 30 H, Creatinine 1.96 H, Estim Creat Clear Calc 42.65, Est GFR (MDRD) Af Amer 46 L, Est GFR (MDRD) Non-Af 38 L, BUN/Creatinine Ratio 15.3, Glucose 528 H*, Calcium 8.9, Troponin I High Sens 21 09/17/21 21:10: Lactic Acid 2.2 H* Assessment & Plan Assessment/Plan (1) Respiratory failure: QUALIFIERS: Chronicity: acute Respiratory failure complication: hypoxia Qualified Code(s): J96.01 - Acute respiratory failure with hypoxia PLAN: Acute hypoxemic respiratory failure secondary to SARS- COV 2 Oxygen saturation of 87% with ambulation in the ED. Review of records shows that on 09/14/2021 rapid COVID antigen was positive. Impression of chest x-ray by radiologist: Bilateral patchy airspace disease concerning for pneumonia. Actual chest x-ray image was independently interpreted. I agree with radiologist interpretation. Dimer was elevated at 1.02. His D-dimer 09/14/2021 was 0.70. Chest CTA 09/14/2021 did not show any PE. Received Decadron at the emergency department and continued. Reportedly on home patient is on low-dose steroids. His creatinine clearance is 42.65. AST is elevated at 62; ALT is elevated at 85; alkaline phosphatase is 155. Liver enzymes are not more than 10 limits of Normal. Elevated Liver Enzymes Likely Secondary to COVID. Remdesivir Ordered. Trend CMP. Tylenol for fever Mucinex ordered Loperamide ordered. Diabetes mellitus with hyperglycemia Patient with hyperglycemia on presentation Escalate home basal insulin. Accu-Chek QA CHS with correction scale insulin ordered. CKD stage IIIa/history of kidney transplant CKD secondary to diabetic mellitus. Stable. Calcitrol continued. Calcium acetate continued. Renal diet ordered. Trend CMP. Hyperkalemia Potassium of 5.5. Received Lasix at the emergency department. Lasix continued. Trend BMP. Hypertension Blood pressure is not within goal Amlodipine, atenolol and Lasix continued. Trend blood pressure and adjust blood pressure medications. DVT prophylaxis Subcutaneous Lovenox ordered. Charges/Coding Visit Charges Inpatient E&M: 25910 Init Hosp L3
[2021-09-17 23:06] LABS: AST(SGOT) 62 U/L (15-37); Alanine Aminotransfer ALT/SGPT 85 U/L (16-61); Albumin, Serum 2.9 g/dL (3.2-5.0); Alkaline Phosphatase 155 U/L (45-117); Bilirubin, Direct 0.25 mg/dL (0.00-0.30); Globulin 4.1 g/dL (2.2-4.2)
[2021-09-17 23:38] VITALS: BMI 30.8
[2021-09-17 23:41] VITALS: BP 138/67; PULSE 89; RESP 20; TEMP 37; O2SAT 92
[2021-09-18] VITALS (9 sets, daily range): BP systolic 103–126; BP diastolic 53–73; PULSE 61–75; RESP 16–20; TEMP 36.4–36.9; O2SAT 94–95
[2021-09-18 01:18] LABS: Reflex Lactate? Y
[2021-09-18 02:07] LABS: Absolute Lymphocyte Count 0.28 X10^3/uL (0.83-4.51); Absolute Neutrophil Count 4.4 X10^3/uL (2.0-7.7); Differential Indicated SCAN CRITERIA MET; Hematocrit 46.3 % (40-54); Hemoglobin 15.2 g/dL (13.0-16.5); Lymphocyte # 0.28 X10^3/ul (0.83-4.51); Lymphocyte % 5.6 % (19-41); Mean Corp Hgb Conc 32.8 g/dL (32-36); Mean Corpuscular Hgb 30.2 pg (27.0-32.0); Mean Corpuscular Volume 91.9 fL (80-94); Mean Platelet Vol. 11.7 fl (6.2-12.0); Monocyte# 0.28 X10^3/uL; Monocyte% 5.6 % (0-10); NRBC Flagged by Analyzer 0 % (0-5); Neutrophil # 4.39 X10^3/uL (2.7-7.7); Neutrophil % 88.6 % (47-70); POSITIVE DIFFERENTIAL YES; Platelet Count 113 K/mm3 (150-450); RBC Distribution Width CV 11.5 % (11.6-14.6); Red Blood Count 5.04 M/mm3 (4.6-6.2)
[2021-09-18 02:29] LABS: ALB/GLOB Ratio 0.9 RATIO (0.9-2.4); AST(SGOT) 54 U/L (15-37); Alanine Aminotransfer ALT/SGPT 76 U/L (16-61); Albumin, Serum 2.7 g/dL (3.2-5.0); Alkaline Phosphatase 138 U/L (45-117); Anion Gap 9 (5-15); BUN 28 mg/dL (7-18); BUN/Creat Ratio 18.5 RATIO (10-20); Calcium,Total 8.2 mg/dL (8.5-10.1); Chloride 110 mmol/L (98-107); Creatinine, Serum 1.51 mg/dL (0.70-1.30); EST Glomerular Filtration Rate 52 mL/min (>60); Est Glom Filt Rate - Afr Amer 63 mL/min (>60); Estimated Creatinine Clearance 55.36 ml/min; Globulin 3.1 g/dL (2.2-4.2); Glucose 331 mg/dL (74-106); Potassium 4.9 mmol/L (3.5-5.1); Protein, Total 5.8 g/dL (6.4-8.2); Sodium Level 138 mmol/L (136-145)
[2021-09-18 02:30] LABS: Lactic Acid 1.2 mmol/L (0.4-1.9)
[2021-09-18] MEDS: Insulin Lispro 100 UNIT/ML INSULN.PEN SC ×4 (02:32→22:19)
[2021-09-18] MEDS: guaiFENesin 600 MG Tablet PO ×3 (02:32→22:17)
[2021-09-18 02:41] LABS: Bedside Glucose 305 mg/dL (70-110)
--- NOTE | 2021-09-18 04:36 | PCS.PANDOC ---
PANDEMIC DOCUMENTATION INITIATED: Date: 04/24/2021 Time: 190
[2021-09-18] MEDS: Calcium Acetate 667 MG Capsule PO ×3 (08:11→17:25)
[2021-09-18] MEDS: dexAMETHasone 4 MG Tablet 6 MG PO (08:12)
[2021-09-18] MEDS: Aspirin 81 MG TAB.CHEW PO (08:12)
--- NOTE | 2021-09-18 11:00 | CASEMGMT ---
ANDER GUERRA Assessment: Face to Face with pt for initial transition planning/care coordination assessment. ANDER GUERRA introduced self and role at [facility], pt voices understanding and consents to assessment. Pt is A/O x4 and answers all questions appropriately at this time. Pt lying in bed in no distress with O2 on. Care providers, pharmacy, and demographics verified/updated. Admitting Dx: COVID PNA PCP:[facility] Specialists:[facility] Preferred Pharmacy: [facility] Insurance: My Care [facility] Community Plan Prescription Benefit: yes LW/HPOA: Pt has a LW/DPOA on file at [facility]. His DPOA is Ying Amin, sig other. LNOK: Ying Amin, sig other Living Arrangements: Pt lives with sig other and 3 kids, one over 18 yo. Pt reports he is I in ADL's and denies concerns at home. Transportation: Pt states his sons transport him to medical appts. DME/HHC/SNF: Pt has a BGM with supplies. He checks his blood sugars 4x/day. Pt also has supplies for insulin and has insulin. Pt also has a cane he does not use. He has a pulse ox. Pt denies hx of HHC or SNF stays. Pt states no concerns with going home at time of dc. Pt states no further concerns/needs. CM to follow. Advised pt to ask CM if any further question/concerns/needs arise, voices understanding. Pt first test positive for COVID at [facility]. No other family members have COVID. Pt is able to quarantine from them using separate bedrooms and bathrooms. Pt has family who can provide groceries and supplies while in quarantine. Provided pt with a local in network list of DME companies should pt be dc'd on O2, pt denies preference. Pt Goal: Home Plan:Home
[2021-09-18] MEDS: Enoxaparin 30 MG/0.3 ML Syringe SC ×2 (11:20→22:17)
[2021-09-18] MEDS: amLODIPine 10 MG Tablet PO (11:24)
[2021-09-18] MEDS: Atenolol 100 MG Tablet PO (11:24)
[2021-09-18] MEDS: Insulin Lispro 100 UNIT/ML INSULN.PEN 15 UNIT SC (11:25)
[2021-09-18 11:40] LABS: Bedside Glucose 348 mg/dL (70-110)
[2021-09-18 11:40] LABS: Bedside Glucose 456 mg/dL (70-110)
--- NOTE | 2021-09-18 12:40 | PN.HOSP_ITS ---
Subjective Subjective Patient seen and examined. He has no active complaints. He was on 2 L of oxygen at time of review and denied any cough, chest pain, palpitations, dizziness, nausea or vomiting. REview of systems was otherwise negative. Objective Data Objective Data Vital Signs: Vital Signs Temp Pulse Resp BP Pulse Ox 97.9 F 74 18 126/57 H 95 09/18/21 08:07 09/18/21 08:07 09/18/21 08:07 09/18/21 08:07 09/18/21 08:07 Oxygen Flow Rate (L/min) 2 Oxygen Delivery Method Nasal Cannula Weight: 202 lb 9.677 oz Body Mass Index (BMI) 30.8 Intake & Output: Intake and Output for Last 24 Hours 09/16/21 09/17/21 09/18/21 23:59 23:59 23:59 Intake Total 1250 / 1250 Balance 1250 / 1250 Lab / Micro Data Result Diagrams: 09/18/21 01:55 09/18/21 01:55 Labs: Laboratory Results - last 24 hr 09/17/21 21:10: WBC 5.9, RBC 5.30, Hgb 15.9, Hct 49.2, MCV 92.8, MCH 30.0, MCHC 32.3, RDW Std Deviation 39.7, RDW Coeff of Tomy 11.5 L, Plt Count 122 L, MPV 11.8, Immature Gran % (Auto) 0.300, Neut % (Auto) 85.9 H, Lymph % (Auto) 5.5 L, [place] % (Auto) 8.3, Eos % (Auto) 0.0, Baso % (Auto) 0.0, Absolute Neuts (auto) 5.0, Absolute Lymphs (auto) 0.32 L, Nucleated RBC % 0, Differential Comment SCANNED, Platelet Estimate SLT DEC, RBC Morphology NORM C+C 09/17/21 21:10: D-Dimer Quant (PE/DVT) 1.02 H* 09/17/21 21:10: Sodium 133 L, Potassium 5.5 H, Chloride 105, Carbon Dioxide 20.0 L, Anion Gap 8, BUN 30 H, Creatinine 1.96 H, Estim Creat Clear Calc 42.65, Est GFR (MDRD) Af Amer 46 L, Est GFR (MDRD) Non-Af 38 L, BUN/Creatinine Ratio 15.3, Glucose 528 H*, Calcium 8.9, Troponin I High Sens 21 09/17/21 21:10: Lactic Acid 2.2 H* 09/17/21 21:10: Total Bilirubin 0.70, Direct Bilirubin 0.25, AST 62 H, ALT 85 H, Alkaline Phosphatase 155 H, Total Protein 7.0, Albumin 2.9 L, Globulin 4.1 09/18/21 01:55: WBC 5.0, RBC 5.04, Hgb 15.2, Hct 46.3, MCV 91.9, MCH 30.2, MCHC 32.8, RDW Std Deviation 39.0, RDW Coeff of Tomy 11.5 L, Plt Count 113 L, MPV 11.7, Immature Gran % (Auto) 0.200, Neut % (Auto) 88.6 H, Lymph % (Auto) 5.6 L, Graham % (Auto) 5.6, Eos % (Auto) 0.0, Baso % (Auto) 0.0, Absolute Neuts (auto) 4.4, Absolute Lymphs (auto) 0.28 L, Nucleated RBC % 0 09/18/21 01:55: Sodium 138, Potassium 4.9, Chloride 110 H, Carbon Dioxide 19.0 L , Anion Gap 9, BUN 28 H, Creatinine 1.51 H, Estim Creat Clear Calc 55.36, Est GFR (MDRD) Af Amer 63, Est GFR (MDRD) Non-Af 52 L, BUN/Creatinine Ratio 18.5, Glucose 331 H, Calcium 8.2 L, Total Bilirubin 0.50, AST 54 H, ALT 76 H, Alkaline Phosphatase 138 H, Total Protein 5.8 L, Albumin 2.7 L, Globulin 3.1, Albumin/Globulin Ratio 0.9 09/18/21 01:55: Lactic Acid 1.2 09/18/21 02:31: POC Glucose 305 H 09/18/21 08:05: POC Glucose 348 H 09/18/21 11:17: POC Glucose 456 H* Radiography Diagnostic Testing: Radiology Impression Chest X-Ray 09/17/21 21:25 IMPRESSION: Bilateral patchy airspace disease concerning for pneumonia. at 2356 Reported and signed by: Gen Carlton MD Electronically Signed: Gen Carlton MD at 23:55 EST Tel , Service support , Physical Exam Const alert, oriented x3 and no apparent distress Exam Limitations: no limitations HEENT head/scalp atraumatic Head and Scalp: normocephalic Mouth: dry mucous membranes Eyes EOMs intact bilaterally and conjunctivae normal Neck no lymphadenopathy and supple Resp Resp Narrative: mildly diminished breth sounds bibasally, no wheezes or crackle s. On 2L of oxygen at time of review Cardio regular rate, regular rhythm, S1 normal heart sound, S2 normal heart sound and no murmurs GI normal to inspection, nondistended, normoactive bowel sounds, soft to palpation, non-tender and non-distended Extremity normal to inspection, full ROM and no clubbing, cyanosis or edema Peripheral Pulses: Yes pulses 2+ throughout Skin no rashes or lesions noted Neuro oriented x3, CN's II-XII intact bilaterally and moves all extremities Sensorium / Orientation: awake and alert Psych affect normal Assessment & Plan Assessment/Plan (1) COVID-19: PLAN: #Acute hypoxic respiratory insufficiency due to covid 19 infection * Was on 2 L of oxygen at time I reviewed him but was subsequently weaned off of oxygen. * His symptoms started in approximately September 08 so he will need to remain in isolation until 09/28/2021 * Chest x-ray showed bilateral patchy airspace disease concerning for pneumonia. * D-dimer elevated but CT of the chest done was negative for PE. * On Decadron. On remdesivir. * Titrate oxygen to maintain saturation above 90%. Breathing treatments with bronchodilators. * * #Type 2 diabetes mellitus * On Lantus 8 units qhs at home; now on 20 units qhs due to hyperglycemia. Insulin sliding scale. Checks ACH S. * #ESRD * Patient has a history of kidney transplant and so qualifies this ESRD. On renal diet. On calcitriol. * on mycofenolate and bactrim as well as tacrolimus * #Hypertension: On amlodipine, atenolol and Lasix. #Thrombocytopenia: Platelets were 122 on admission and now down to 113. This will likely be due to COVID. Will monitor for now. #Hyperkalemia: Resolved. K is now 4.9. DVT prophylaxis: Lovenox 30mg bid. Charges/Coding Visit Charges Inpatient E&M: 38381 Subs Hosp L2
[2021-09-18] MEDS: Smz/Tmp Ds Tablet 0.5 TABLET PO (13:23)
[2021-09-18] MEDS: Tacrolimus Anhydrous 1 MG Capsule 2 MG PO (13:23)
[2021-09-18] MEDS: Mycophenolate Mofetil 250 MG Capsule 750 MG PO ×2 (13:24→22:17)
[2021-09-18 16:06] LABS: Bedside Glucose 419 mg/dL (70-110)
[2021-09-18] MEDS: Atorvastatin Calcium 20 MG Tablet PO (22:17)
[2021-09-18 22:46] LABS: Bedside Glucose 398 mg/dL (70-110)
[2021-09-19] VITALS (14 sets, daily range): BP systolic 86–122; BP diastolic 55–74; PULSE 60–70; RESP 16–18; TEMP 36.5–36.9; O2SAT 80–96
[2021-09-19] MEDS: Insulin Lispro 100 UNIT/ML INSULN.PEN SC ×4 (02:34→17:14)
[2021-09-19 02:46] LABS: Bedside Glucose 324 mg/dL (70-110)
[2021-09-19 04:55] LABS: Absolute Lymphocyte Count 0.42 X10^3/uL (0.83-4.51); Absolute Neutrophil Count 5.8 X10^3/uL (2.0-7.7); Hemoglobin 16.2 g/dL (13.0-16.5); Lymphocyte # 0.42 X10^3/ul (0.83-4.51); Lymphocyte % 6.3 % (19-41); Mean Corp Hgb Conc 33.1 g/dL (32-36); Mean Corpuscular Hgb 29.8 pg (27.0-32.0); Mean Corpuscular Volume 90.1 fL (80-94); Mean Platelet Vol. 12.2 fl (6.2-12.0); Monocyte# 0.43 X10^3/uL; Monocyte% 6.4 % (0-10); NRBC Flagged by Analyzer 0 % (0-5); Neutrophil # 5.82 X10^3/uL (2.7-7.7); Neutrophil % 86.7 % (47-70); POSITIVE DIFFERENTIAL YES; Platelet Count 133 K/mm3 (150-450); RBC Distribution Width CV 11.6 % (11.6-14.6); RBC Distribution Width SD 38.3 fl (35.1-43.9); Red Blood Count 5.44 M/mm3 (4.6-6.2); White Blood Count 6.7 K/mm3 (4.4-11.0)
[2021-09-19 05:02] LABS: Differential Indicated SCAN CRITERIA MET
[2021-09-19 05:21] LABS: Anion Gap 8 (5-15); BUN 38 mg/dL (7-18); BUN/Creat Ratio 26.4 RATIO (10-20); Calcium,Total 8.9 mg/dL (8.5-10.1); Chloride 111 mmol/L (98-107); Creatinine, Serum 1.44 mg/dL (0.70-1.30); EST Glomerular Filtration Rate 55 mL/min (>60); Est Glom Filt Rate - Afr Amer 66 mL/min (>60); Estimated Creatinine Clearance 58.06 ml/min; Glucose 338 mg/dL (74-106); Potassium 4.9 mmol/L (3.5-5.1); Sodium Level 139 mmol/L (136-145)
[2021-09-19 05:31] LABS: Burr Cells 1+
[2021-09-19] MEDS: Calcium Acetate 667 MG Capsule PO ×3 (08:36→17:13)
[2021-09-19] MEDS: dexAMETHasone 4 MG Tablet 6 MG PO (08:36)
[2021-09-19] MEDS: Aspirin 81 MG TAB.CHEW PO (08:36)
[2021-09-19 08:45] LABS: Bedside Glucose 340 mg/dL (70-110)
[2021-09-19] MEDS: Mycophenolate Mofetil 250 MG Capsule 750 MG PO ×2 (10:24→22:02)
[2021-09-19] MEDS: amLODIPine 10 MG Tablet PO (10:25)
[2021-09-19] MEDS: guaiFENesin 600 MG Tablet PO ×2 (10:25→22:02)
[2021-09-19] MEDS: Tacrolimus Anhydrous 1 MG Capsule 2 MG PO (10:25)
[2021-09-19] MEDS: Pantoprazole Sodium 20 MG Tablet PO (10:25)
[2021-09-19] MEDS: Atenolol 100 MG Tablet PO (10:25)
[2021-09-19] MEDS: Smz/Tmp Ds Tablet 0.5 TABLET PO (10:25)
[2021-09-19] MEDS: buPROPion (XL) 300 MG TABLET.XL PO (10:26)
[2021-09-19] MEDS: Enoxaparin 30 MG/0.3 ML Syringe SC ×2 (10:35→22:02)
[2021-09-19 12:40] LABS: Bedside Glucose 390 mg/dL (70-110)
--- NOTE | 2021-09-19 14:52 | PN.HOSP_ITS ---
Subjective Subjective Patient seen and examined. He had no active complaints today remains on 2 L of oxygen. He denies any fever chills, cough, chest pain, palpitation, dizziness, nausea or vomiting. Review of symptoms otherwise negative. Objective Data Objective Data Vital Signs: Vital Signs Temp Pulse Resp BP Pulse Ox 97.7 F L 67 16 94/59 L 94 09/19/21 13:32 09/19/21 13:47 09/19/21 13:32 09/19/21 13:32 09/19/21 13:32 Oxygen Flow Rate (L/min) [ 6 AMBULATING with Oxygen #2] Oxygen Flow Rate (L/min) [ 2 AMBULATING with Oxygen #1] Oxygen Flow Rate (L/min) [At 2 REST with Oxygen] Oxygen Flow Rate (L/min) 2.5 Oxygen Delivery Method Nasal Cannula Weight: 202 lb 9.677 oz Body Mass Index (BMI) 30.8 Intake & Output: Intake and Output for Last 24 Hours 09/17/21 09/18/21 09/19/21 23:59 23:59 23:59 Intake Total 2450 / 2450 750 / 750 Balance 2450 / 2450 750 / 750 Lab / Micro Data Result Diagrams: 09/19/21 04:20 09/19/21 04:20 Labs: Laboratory Results - last 24 hr 09/18/21 15:56: POC Glucose 419 H 09/18/21 22:03: POC Glucose 398 H 09/19/21 02:33: POC Glucose 324 H 09/19/21 04:20: WBC 6.7, RBC 5.44, Hgb 16.2, Hct 49.0, MCV 90.1, MCH 29.8, MCHC 33.1, RDW Std Deviation 38.3, RDW Coeff of Tomy 11.6, Plt Count 133 L, MPV 12.2 H , Immature Gran % (Auto) 0.600, Neut % (Auto) 86.7 H, Lymph % (Auto) 6.3 L, [place] % (Auto) 6.4, Eos % (Auto) 0.0, Baso % (Auto) 0.0, Absolute Neuts (auto) 5.8, Absolute Lymphs (auto) 0.42 L, Nucleated RBC % 0, [place] Cells 1+ 09/19/21 04:20: Sodium 139, Potassium 4.9, Chloride 111 H, Carbon Dioxide 20.0 L , Anion Gap 8, BUN 38 H, Creatinine 1.44 H, Estim Creat Clear Calc 58.06, Est GFR (MDRD) Af Amer 66, Est GFR (MDRD) Non-Af 55 L, BUN/Creatinine Ratio 26.4 H, Glucose 338 H, Calcium 8.9 09/19/21 08:26: POC Glucose 340 H 09/19/21 11:51: POC Glucose 390 H Physical Exam Const alert, oriented x3 and no apparent distress Exam Limitations: no limitations HEENT head/scalp atraumatic and moist oral mucous membranes Head and Scalp: normocephalic Eyes PERRL, EOMs intact bilaterally and conjunctivae normal Neck no lymphadenopathy and supple Resp Resp Narrative: mildly diminished breth sounds bibasally, no wheezes or crackles. On 2L of oxygen at time of review Cardio regular rate, regular rhythm, S1 normal heart sound, S2 normal heart sound and no murmurs GI normal to inspection, nondistended, normoactive bowel sounds, soft to palpation, non-tender and non-distended Extremity normal to inspection, full ROM and no clubbing, cyanosis or edema Peripheral Pulses: Yes pulses 2+ throughout Skin no rashes or lesions noted Neuro oriented x3, CN's II-XII intact bilaterally and moves all extremities Sensorium / Orientation: awake and alert Psych affect normal Assessment & Plan Assessment/Plan (1) COVID-19: PLAN: #Acute hypoxic respiratory insufficiency due to covid 19 infection * on 2L of oxygen * His symptoms started in approximately September 08 so he will need to remain in isolation until 09/28/2021 * Chest x-ray showed bilateral patchy airspace disease concerning for pneumonia. * D-dimer elevated but CT of the chest done was negative for PE. * On Decadron. On remdesivir. * Titrate oxygen to maintain saturation above 90%. Breathing treatments with br onchodilators. * Patient had a walking pulse ox today and required 6 L of oxygen. * #Type 2 diabetes mellitus * On Lantus 8 units qhs at home; now on 20 units qhs due to hyperglycemia. Insulin sliding scale. Checks ACH S. * #ESRD * Patient has a history of kidney transplant and so qualifies as ESRD. On renal diet. On calcitriol. * on mycofenolate and bactrim as well as tacrolimus * #Hypertension: On amlodipine, atenolol and Lasix. #Thrombocytopenia: platelets are up to 133 today, froom 113 yesterday. Will monitor. #Hyperkalemia: Resolved. DVT prophylaxis: Lovenox 30mg bid. Disposition: We will discharge patient today as he required 6 L of oxygen with ambulation. Will hopefully improve by tomorrow and walking pulse ox will be repeated tomorrow. Charges/Coding Visit Charges Inpatient E&M: 79317 Subs Hosp L2
[2021-09-19] MEDS: Acetaminophen 500 MG Tablet 1000 MG PO (16:31)
[2021-09-19 17:20] LABS: Bedside Glucose 429 mg/dL (70-110)
[2021-09-19] MEDS: Atorvastatin Calcium 20 MG Tablet PO (22:02)
[2021-09-19] MEDS: 0.9% Saline Lock 10 ML Syringe IV (22:03)
[2021-09-19 22:20] LABS: Bedside Glucose 479 mg/dL (70-110)
[2021-09-19] MEDS: Insulin Lispro 100 UNIT/ML INSULN.PEN 20 UNIT SC (22:34)
[2021-09-20] VITALS (10 sets, daily range): BP systolic 110–113; BP diastolic 44–58; PULSE 61–77; RESP 18; TEMP 36.3–36.6; O2SAT 88–94
[2021-09-20] MEDS: Insulin Lispro 100 UNIT/ML INSULN.PEN SC ×3 (02:52→11:57)
[2021-09-20 03:01] LABS: Bedside Glucose 361 mg/dL (70-110)
[2021-09-20 06:29] LABS: Absolute Lymphocyte Count 0.44 X10^3/uL (0.83-4.51); Absolute Neutrophil Count 10.5 X10^3/uL (2.0-7.7); Basophil# 0.02 X10^3/uL; Basophil% 0.2 % (0-1); Hemoglobin 16.9 g/dL (13.0-16.5); Lymphocyte # 0.44 X10^3/ul (0.83-4.51); Lymphocyte % 3.8 % (19-41); Mean Corp Hgb Conc 31.9 g/dL (32-36); Mean Corpuscular Hgb 29.4 pg (27.0-32.0); Mean Corpuscular Volume 92.3 fL (80-94); Mean Platelet Vol. 11.8 fl (6.2-12.0); Monocyte# 0.63 X10^3/uL; Monocyte% 5.4 % (0-10); NRBC Flagged by Analyzer 0 % (0-5); Neutrophil # 10.47 X10^3/uL (2.7-7.7); Neutrophil % 90.2 % (47-70); POSITIVE DIFFERENTIAL YES; Platelet Count 154 K/mm3 (150-450); RBC Distribution Width CV 11.7 % (11.6-14.6); RBC Distribution Width SD 39.8 fl (35.1-43.9); Red Blood Count 5.74 M/mm3 (4.6-6.2); White Blood Count 11.6 K/mm3 (4.4-11.0)
[2021-09-20 06:49] LABS: Differential Indicated SCAN CRITERIA MET
[2021-09-20 07:07] LABS: Anion Gap 7 (5-15); BUN 55 mg/dL (7-18); BUN/Creat Ratio 34.2 RATIO (10-20); Calcium,Total 7.7 mg/dL (8.5-10.1); Chloride 113 mmol/L (98-107); Creatinine, Serum 1.61 mg/dL (0.70-1.30); EST Glomerular Filtration Rate 48 mL/min (>60); Est Glom Filt Rate - Afr Amer 58 mL/min (>60); Estimated Creatinine Clearance 51.93 ml/min; Glucose 241 mg/dL (74-106); Potassium 4.9 mmol/L (3.5-5.1); Sodium Level 136 mmol/L (136-145)
[2021-09-20] MEDS: buPROPion (XL) 300 MG TABLET.XL PO (08:11)
[2021-09-20] MEDS: Pantoprazole Sodium 20 MG Tablet PO (08:11)
[2021-09-20] MEDS: dexAMETHasone 4 MG Tablet 6 MG PO (08:11)
[2021-09-20] MEDS: Smz/Tmp Ds Tablet 0.5 TABLET PO (08:11)
[2021-09-20] MEDS: guaiFENesin 600 MG Tablet PO (08:11)
[2021-09-20] MEDS: Aspirin 81 MG TAB.CHEW PO (08:12)
[2021-09-20] MEDS: Mycophenolate Mofetil 250 MG Capsule 750 MG PO (08:12)
[2021-09-20] MEDS: Tacrolimus Anhydrous 1 MG Capsule 2 MG PO (08:12)
[2021-09-20] MEDS: Calcium Acetate 667 MG Capsule PO ×2 (08:12→12:05)
[2021-09-20] MEDS: Enoxaparin 30 MG/0.3 ML Syringe SC (08:12)
[2021-09-20 08:45] LABS: Bedside Glucose 211 mg/dL (70-110)
--- NOTE | 2021-09-20 10:58 | CASEMGMT ---
Living Will/Healthcare POA both scanned into summary tab of [facility], Ying Amin is listed as healthcare POA. MATTHEW Rodriguez
[2021-09-20 12:15] LABS: Bedside Glucose 294 mg/dL (70-110)
--- NOTE | 2021-09-20 12:37 | DS.PCM_ITS ---
Providers Date of Admission: 09/17/21 Primary Care Physician: Dr. Zaida Mcneil MD Reason For Visit: COVID PNEUMONIA Diagnosis Discharge Diagnosis (1) COVID-19: Status: Acute Code(s): U07.1 - COVID-19 Medications at Discharge Home Medications atenolol 100 mg PO DAILY 11/28/17 aspirin 81 mg PO DAILY@0800 08/21/18 acetaminophen 1,000 mg PO Q6H PRN PRN 08/26/18 amlodipine 10 mg PO DAILY #0 08/29/18 insulin lispro See Protocol SQ ACHS 10/06/19 insulin glargine 100 unit/mL (3 mL) subcutaneous pen 8 unit SC QHS ml 08/11/20 Envarsus XR 2 mg PO DAILY 09/18/21 atorvastatin [Lipitor] 20 mg PO QHS 09/18/21 bupropion HCl [Wellbutrin XL] 300 mg PO DAILY 09/18/21 docusate sodium [Colace] 100 mg PO DAILY 09/18/21 mycophenolate mofetil [CellCept] 750 mg PO BID 09/18/21 pantoprazole [Protonix] 20 mg PO DAILY 09/18/21 prednisone 5 mg PO DAILY 09/18/21 sulfamethoxazole-trimethoprim [Bactrim] 1 tab PO DAILY 09/18/21 apixaban [Eliquis] 2.5 mg PO BID #28 tab 09/20/21 dexamethasone 6 mg PO DAILY #7 tab 09/20/21 Hospital Course Operations None Procedures None Summary of Care Provided Minutes Spent on Discharge: 40 Hospital Course: Patient is a 50-year-old male with a past medical history significant for years D with kidney transplant due to kidney failure from diabetes mellitus. He was admitted through the ED on 09/17/2021 with a complaint of shortness of breath with associated cough productive of yellowish-green sputum and fever as well as chills and muscle aches and fatigue and loss of taste and smell. He was found to be hypoxic with saturation going up as low as 86%. He had tested positive for COVID 3 days prior to admission. He was admitted and managed for acute hypoxic respiratory failure due to COVID-19 pneumonia. He was started on remdesivir and Decadron. CTA done 3 days prior to admission was negative for PE. Patient shortness of breath gradually improved and he felt much better. He had a walking pulse ox on 09/20/2021 which showed that he required 2 L of oxygen. He was discharged home on 09/20/2021 on p.o. Decadron 6 mg daily to complete a 10-day course and was discharged on 2 L of oxygen. He is to remain in isolation till 09/27/2021 and is to follow-up with his primary care doctor in about 1 to 2 weeks. Patient was seen and examined prior to discharge. He had no complaints and felt much better. Review of systems otherwise negative. Labs and vitals reviewed. Home medication reviewed and reconciled. In light of his elevated D-dimer, he was also discharged on Eliquis 2.5 mg twice daily for 14 days thromboprophylaxis in light of elevated risk of coagulopathy with COVID. Physical Exam Const alert, oriented x3 and no apparent distress General Appearance: cooperative, comfortable and well kempt Exam Limitations: no limitations HEENT normocephalic, head/scalp atraumatic, hearing grossly normal bilaterally and moist oral mucous membranes Eyes PERRL, EOMs intact bilaterally and conjunctivae normal Neck no lymphadenopathy and supple Resp Resp Narrative: mildly diminished breth sounds bibasally, no wheezes or crackles. On 2L of oxygen at time of review Cardio regular rate, regular rhythm, S1 normal heart sound, S2 normal heart sound and no murmurs GI normal to inspection, nondistended, normoactive bowel sounds, soft to palpation, non-tender and non-distended Extremity normal to inspection, full ROM and no clubbing, cyanosis or edema Skin no rashes or lesions noted Neuro oriented x3, CN's II-XII intact bilaterally and moves all extremities Sensorium / Orientation: awake and alert Psych affect normal Weight / BMI Weight Weight: 202 lb 9.677 oz Body Mass Index (BMI) 30.8 ABG / Lab / Microbiology Data Result Diagrams: 09/20/21 05:50 09/20/21 05:50 Laboratory: Laboratory Results - last 24 hr 09/19/21 11:51: POC Glucose 390 H 09/19/21 16:37: POC Glucose 429 H 09/19/21 21:59: POC Glucose 479 H* 09/20/21 02:46: POC Glucose 361 H 09/20/21 05:50: WBC 11.6 H, RBC 5.74, Hgb 16.9 H, Hct 53.0, MCV 92.3, MCH 29.4, MCHC 31.9 L, RDW Std Deviation 39.8, RDW Coeff of Tomy 11.7, Plt Count 154, MPV 11.8, Immature Gran % (Auto) 0.400, Neut % (Auto) 90.2 H, Lymph % (Auto) 3.8 L, [place] % (Auto) 5.4, Eos % (Auto) 0.0, Baso % (Auto) 0.2, Absolute Neuts (auto) 10.5 H, Absolute Lymphs (auto) 0.44 L, Nucleated RBC % 0 09/20/21 05:50: Sodium 136, Potassium 4.9, Chloride 113 H, Carbon Dioxide 16.0 L , Anion Gap 7, BUN 55 H, Creatinine 1.61 H, Estim Creat Clear Calc 51.93, Est GFR (MDRD) Af Amer 58 L, Est GFR (MDRD) Non-Af 48 L, BUN/Creatinine Ratio 34.2 H , Glucose 241 H, Calcium 7.7 L 09/20/21 08:00: POC Glucose 211 H 09/20/21 11:56: POC Glucose 294 H Microbiology: Microbiology 09/17/21 21:10 Blood Culture (Wb) - Anticubital Left Blood Culture - Preliminary No growth in 48 hours. D/C Instructions Discharge Diet: Low fat / Low cholesterol and Renal Diet Weight Bearing Status: Weight bearing as tolerated Call your doctor if you observe: Fever of 101 or Higher, Shortness of breath, Dizziness, Chest pain and Uncontrolled pain Meaningful Use Info Meaningful Use Diagnoses (Choose all that apply): None applicable Discharge Plan Admission Admit Date/Time: 09/17/21 22:25 Primary Reason for Your Visit: acute hypoxic respiratory failure due to covid Attending Provider: Shruti Jara Primary Care Provider: Zaida Mcneil Instructions Patient Instructions: Coronavirus Disease 2019 (COVID-19): Overview, Coronavirus Disease 2019 (COVID-19): Caring for Yourself or Others Additional Instructions / Restrictions: use oxygen for shortness of breath as needed. Remain in isolation till 09/27/2021 Discharge Orders/Prescriptions Prescriptions: New dexamethasone 6 mg tablet 6 mg PO DAILY Qty: 7 RF: 0 Eliquis 2.5 mg tablet 2.5 mg PO BID Qty: 28 RF: 0 Continued insulin glargine 100 unit/mL (3 mL) insulin pen 8 unit SC QHS RF: 0 atenolol 100 MG tablet 100 mg PO DAILY RF: 0 aspirin 81 MG tablet,chewable 81 mg PO DAILY@0800 RF: 0 acetaminophen 500 MG tablet 1,000 mg PO Q6H PRN PRN (Reason: Pain) RF: 0 amlodipine 5 MG tablet 10 mg PO DAILY Qty: 0 RF: 0 insulin lispro 100 UNIT/ML insulin pen See Protocol unit SQ ACHS RF: 0 atorvastatin [Lipitor] 20 mg Tablet 20 mg PO QHS RF: 0 sulfamethoxazole-trimethoprim [Bactrim] 400-80 mg Tablet 1 tab PO DAILY RF: 0 mycophenolate mofetil [CellCept] 250 mg Capsule 750 mg PO BID RF: 0 prednisone 5 mg Tablet 5 mg PO DAILY RF: 0 pantoprazole [Protonix] 20 mg Tablet,Delayed Release (Dr/Ec) 20 mg PO DAILY RF: 0 docusate sodium [Colace] 100 mg Capsule 100 mg PO DAILY RF: 0 bupropion HCl [Wellbutrin XL] 150 mg Tablet Extended Release 24 Hr 300 mg PO DAILY RF: 0 Envarsus XR 1 mg tablet extended release 24 hr 2 mg PO DAILY RF: 0 Referrals / Follow Up: Zaida Mcneil MD [Primary Care Provider] - Within 2 Weeks Disposition Disposition (needs filled in before D/C Order can be placed): Home, Self Care Charges/Coding Visit Charges Inpatient E&M: 90170 Disch Hosp
--- NOTE | 2021-09-20 14:07 | CASEMGMT ---
Pt qualifies for home O2, faxed referral to [facility] – [place] and emailed [facility]. Portable tank taken from [place].
== END 2021-09-20 16:54 | disposition home or self-care (01) | DRG 177 ==
LOC: ED 22:33 → MS3 22:40
PROVIDERS: Admitting Provider Hospitalist; Emergency Provider Emergency Medicine; PCP Internal Medicine; Visit Provider Student in an Organized Health Care Education/Training Program
DX: U07.1 COVID-19 (principal); J12.82 Pneumonia due to coronavirus disease 2019; J96.01 Acute respiratory failure with hypoxia; I13.0 Hypertensive heart and chronic kidney disease with heart failure and stage 1 through stage 4 chronic kidney disease, or unspecified chronic kidney disease; I50.32 Chronic diastolic (congestive) heart failure; Z94.0 Kidney transplant status; E11.319 Type 2 diabetes mellitus with unspecified diabetic retinopathy without macular edema; E11.22 Type 2 diabetes mellitus with diabetic chronic kidney disease; E11.65 Type 2 diabetes mellitus with hyperglycemia; Z79.4 Long term (current) use of insulin; E11.42 Type 2 diabetes mellitus with diabetic polyneuropathy; N18.31 Chronic kidney disease, stage 3a; E78.5 Hyperlipidemia, unspecified; I25.10 Atherosclerotic heart disease of native coronary artery without angina pectoris; E87.5 Hyperkalemia; F17.220 Nicotine dependence, chewing tobacco, uncomplicated; K21.9 Gastro-esophageal reflux disease without esophagitis; I25.2 Old myocardial infarction; F41.9 Anxiety disorder, unspecified; F32.A Depression, unspecified; Z79.82 Long term (current) use of aspirin; Z79.899 Other long term (current) drug therapy; E66.9 Obesity, unspecified
CPT/HCPCS: 36415; 71045; 71275; 80048; 80053; 80076; 81001; 82962; 83605; 84484; 85025; 85379; 87040; 87426; 93005; 94762; 96360; 96361; 97802; 99284; J7030; J7050; Q9967; A4216; J0248

== ENCOUNTER 2021-12-04 17:06 | Outpatient (CLI) | payer MEDICARE, MEDICAID, SELFPAY ==
[2021-12-04 17:43] LABS: Absolute Lymphocyte Count 1.18 X10^3/uL (0.83-4.51); Absolute Neutrophil Count 6.1 X10^3/uL (2.0-7.7); Basophil# 0.01 X10^3/uL; Basophil% 0.1 % (0-1); Eosinophil# 0.03 X10^3/uL; Eosinophils% 0.4 % (0-5); Hematocrit 48.7 % (40-54); Hemoglobin 15.9 g/dL (13.0-16.5); Lymphocyte # 1.18 X10^3/ul (0.83-4.51); Lymphocyte % 14.5 % (19-41); Mean Corp Hgb Conc 32.6 g/dL (32-36); Mean Corpuscular Hgb 30.4 pg (27.0-32.0); Mean Corpuscular Volume 93.1 fL (80-94); Monocyte# 0.79 X10^3/uL; Monocyte% 9.7 % (0-10); NRBC Flagged by Analyzer 0 % (0-5); Neutrophil # 6.09 X10^3/uL (2.7-7.7); Neutrophil % 75.1 % (47-70); Platelet Count 226 K/mm3 (150-450); RBC Distribution Width CV 13.2 % (11.6-14.6); RBC Distribution Width SD 45.3 fl (35.1-43.9); Red Blood Count 5.23 M/mm3 (4.6-6.2); White Blood Count 8.1 K/mm3 (4.4-11.0)
[2021-12-04 17:58] LABS: Erythrocyte Sedimentation Rate 38 mm/hr (0-20)
[2021-12-04 18:16] LABS: Hemoglobin A1c 8.1 % (3.8-5.6)
[2021-12-04 18:29] LABS: ALB/GLOB Ratio 0.9 RATIO (0.9-2.4); AST(SGOT) 31 U/L (15-37); Alanine Aminotransfer ALT/SGPT 49 U/L (16-61); Albumin, Serum 3.4 g/dL (3.2-5.0); Alkaline Phosphatase 161 U/L (45-117); Anion Gap 6 (5-15); BUN 39 mg/dL (7-18); BUN/Creat Ratio 29.3 RATIO (10-20); Calcium,Total 9.2 mg/dL (8.5-10.1); Chloride 110 mmol/L (98-107); Creatinine, Serum 1.33 mg/dL (0.70-1.30); EST Glomerular Filtration Rate 60 mL/min (>60); Est Glom Filt Rate - Afr Amer 72 mL/min (>60); Globulin 3.6 g/dL (2.2-4.2); Glucose 211 mg/dL (74-106); Potassium 4.6 mmol/L (3.5-5.1); Sodium Level 139 mmol/L (136-145)
[2021-12-04 20:29] LABS: M R Staph aureus DNA By PCR Negative (Negative); Probe Check PASS; Specimen Processing Control PASS; Staph aureus DNA By PCR POSITIVE (Negative)
== END 2021-12-04 23:59 | disposition home or self-care (01) ==
PROVIDERS: PCP Internal Medicine; Referring Provider Podiatrist; Visit Provider Podiatrist
DX: L03.116 Cellulitis of left lower limb (principal)
CPT/HCPCS: 36415; 80053; 83036; 85025; 85652; 86140; 87070; 87075; 87077; 87186; 87205; 87640

== ENCOUNTER 2022-01-02 09:45 | Outpatient (RCR) | payer MEDICARE, MEDICAID, SELFPAY ==
[2021-12-26 09:01] VITALS: BP 153/69; PULSE 87; RESP 18; TEMP 36; BMI 34.2
--- NOTE | 2021-12-26 10:17 | HP.PCM_ITS ---
History of Present Illness Date of Service: 12/26/21 Chief Complaint: Right leg wound History of Wound: 46-year-old male with diabetic neuropathy returns to clinic today to follow-up for right ulcer with MRSA cellulitis infection. He denies drainage and thing his wound has healed. He denies pain or other illness. He has been compliant. Patient denies any constitutional symptoms at his appointment today. Patient has a recent A1c greater than 8. Patient has a 1-year-old kidney transplant. Patient takes daily corticosteroids and immune suppressants to prevent rejection. Patient has had these wounds for several months. Patient was seen in the office by Dr. Pizano and was sent over to the wound care center. He notes that he has been cleansing the sites daily dressing with Santyl and DSD and using his diabetic shoes for offloading. Patient has been taking Bactrim and his wounds were cultured on his previous visit. [facility] Medical History Acute hypoxemic respiratory failure Acute on chronic diastolic CHF (congestive heart failure) Acute respiratory failure with hypoxia ILDA (acute kidney injury) Anasarca associated with disorder of kidney Anemia of chronic renal failure, stage 4 (severe) Anxiety and depression Atherosclerotic heart disease of [place] coronary artery without angina pectoris Autonomic neuropathy Blind left eye Cellulitis and abscess of right leg Chewing tobacco nicotine dependence Chronic renal failure, stage 4 (severe) Chronic ulcer of 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 Diabetes mellitus type II, uncontrolled Diabetic nephropathy Diabetic neuropathy Diabetic retinopathy Dyspnea Essential hypertension Fistula (~12/2018) GERD (gastroesophageal reflux disease) History of acute myocardial infarction History of left heart catheterization (LHC) (~06/26/11) HLD (hyperlipidemia) Hypertensive emergency Hypoglycemia Hypokalemia Kidney failure Kidney stones Noncompliance Obesity (BMI 30-39.9) Pneumonia Problem with dialysis access Pulmonary edema Retention, urine Right leg pain 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 Vision problems Home Medications aspirin 81 mg PO DAILY@0800 08/21/18 [History Last Taken 10/06/19] insulin lispro See Protocol SQ ACHS 10/06/19 [History Last Taken 10/06/19] insulin glargine 100 unit/mL (3 mL) subcutaneous pen 36 unit SC QHS ml 08/11/20 [History Last Taken Unknown] Envarsus XR 2 mg PO DAILY 09/18/21 [History Last Taken Unknown] atorvastatin [Lipitor] 20 mg PO QHS 09/18/21 [History Last Taken Unknown] bupropion HCl [Wellbutrin XL] 300 mg PO DAILY 09/18/21 [History Last Taken Unknown] docusate sodium [Colace] 100 mg PO DAILY 09/18/21 [History Last Taken Unknown] mycophenolate mofetil [CellCept] 500 mg PO BID 09/18/21 [History Last Taken Unknown] pantoprazole [Protonix] 20 mg PO DAILY 09/18/21 [History Last Taken Unknown] prednisone 5 mg PO DAILY 09/18/21 [History Last Taken Unknown] carvedilol 25 mg PO BID 12/26/21 [History Last Taken Unknown] cholecalciferol (vitamin D3) [Vitamin D3] 50 mcg PO QWEEK 12/26/21 [History Last Taken Unknown] gabapentin 100 mg PO QHS 12/26/21 [History Last Taken Unknown] Allergy/AdvReac Type Severity Reaction Status Date / Time No Known Allergies Allergy Verified 12/26/21 09:25 Family History Mother Heart disease Hypertension Father Cancer Brother Cancer Diabetes Sister Diabetes Surgical History History of appendectomy History of arteriovenostomy for renal dialysis (~08/2018) History of artificial lens replacement History of cholecystectomy History of eye surgery Kidney replaced by transplant Status post insertion of dialysis catheter (~08/2018) Social History Smoking Status: Never smoker second hand exposure: No alcohol intake: never substance use type: does not use caffeine: No Vital Signs Vital Signs Vital Signs: 12/26/21 09:01 Temperature 96.8 F L Temperature Source Temporal Pulse Rate 87 Respiratory Rate 18 Blood Pressure 153/69 H Blood Pressure Mean 97 Blood Pressure Source Monitor Blood Pressure Position Sitting Blood Pressure Location Left Arm Oxygen Delivery Method Room Air Weight Weight: 102.058 kg Body Mass Index (BMI) 34.2 Physical Exam Narrative Patient is alert oriented to person place and time. Patient ambulates unassisted and diabetic shoe gear. Vascular: There are atrophic changes of the skin such as thinning shiny taut appearance absent digital hair growth. Pulses are grossly palpable 2 out of 4 dorsalis pedis and posterior tibial bilateral feet. Mild +1 pitting edema to bilateral lower extremity. Neurologic: Light touch protective sensation completely absent to bilateral lower extremity. Dermatologic: Healed right hallux ulceration. Full-thickness ulceration noted to plantar midfoot with necrotic eschar Postdebridement the wound demonstrated 100% granular base with clean skin edges no deep probing or undermining. No acute signs of infection. Full-thickness ulcerations noted to the dorsal lateral aspect of the second third and fourth digit on the left foot with significant periwound hyperkeratosis and dry stable eschar Postdebridement the wounds demonstrate clean granular bases with clean skin edges. Moderate serous drainage noted. No other signs of infection. Musculoskeletal: No gross wound forming deformity. Muscular strength full to bilateral lower extremity compartments. No crepitus or pain noted to the wound or periwound areas. Debridement Note Debridement Note Post-Debridement Measurements and Additional Note: Post-Debridement Measurements/Treatment - Nurse 1 - General Ulcer Assessment Start: 12/26/21 08:59 Freq: Status: Active Protocol: .LOWEXT Activity Type Activity Date Activity User E-Sign Co-Sign Detail Recorded Client Recorded Date Recorded By Document 12/26/21 09:01 [facility] [id number] 12/26/21 09:22 [facility] 12/26/21 09:01 - Today's Visit Information Type of service Initial Visit Arrival Mode Ambulatory Transfer Assistance None Patient Identification Verified (Name & Yes ) Patient Requires Transmission-Based No Precautions Finger Stick Blood Sugar(mg/dl) (if 180 indicated): Blood Sugar Stated by Patient Height and Weight Height 5 ft 8 in Weight 102.058 kg Weight in Pounds 225.0 lbs Weight Measurement Method Stated by Patient Body Mass Index (BMI) 34.2 BMI Classification Obese BSA - [place] 2.15 Vital Signs Temperature (97.8 F-99.1 F) 96.8 F L Temperature Source Temporal Pulse Rate (60-100) 87 Pulse Location Monitor Respiratory Rate (12-18) 18 Respiratory rate source Observation Oxygen Delivery Method Room Air Blood Pressure (90/60-120/80) 153/69 H Blood Pressure Mean 97 Source Monitor Position Sitting Blood Pressure Location Left Arm History Since Last Visit- (Skip if this is Patient's initial visit) Left Footwear Diabetic Shoe Right Footwear Diabetic Shoe Pain Scale: 0-10 Numeric Is Patient Pain Free? No toe wound -Description Burning -Intensity 6 -Duration (hours) Chronic -Pain Behavior No Change in Behavior -Pain Aggravating Factors Standing, Sitting,Walking -Alleviating Factors/Interventions Exercise/ Ambulation, Turning/ Repositioning, Distraction, Will continue to monitor, Patient denies need for intervention, Emotional Support Lower Extremity Assessment/ Foot Assessment/ Toe Nail Assessment Right -Lower Extremity Comment (If N/A Above PT HAS SEEN ) [facility] IN THE PAST, LAST ARTERIAL IN 2019 -Posterior Tibial Palpable No -Posterior Tibial Doppler Multiphasic -Dorsalis Pedis Doppler Monophasic -Extremity Color Pale -Hair Growth on Legs No -Hair Growth on Toes No -Temperature of Extremity Warm -Other Deformity No -Prior Foot Ulcer No -Charcot Joint No -Prior Amputation No -Thick Yes -Discolored Yes -Deformed No -Improper Length & Hygeine No Left -Lower Extremity Comment (If N/A Above PT HAS SEEN DR Kentrell RAPHAEL IN THE PAST, ARTERIAL STUDIES IN 2019 -Posterior Tibial Palpable No -Posterior Tibial Doppler Monophasic -Dorsalis Pedis Palpable Yes -Dorsalis Pedis Doppler Multiphasic -Extremity Color Pale -Hair Growth on Legs No -Hair Growth on Toes No -Other Deformity No -Prior Foot Ulcer No -Charcot Joint No -Prior Amputation No -Thick Yes -Discolored Yes -Deformed No -Improper Length & Hygeine No Neuropathy Assessment Feet - Top Side and Bottom <Entered> (a) Communication Assessment Preferred language Indonesian Brass Pourer Required No Able to Read Yes Able to Write Yes Right Hearing Abillity Normal Left Hearing Abillity Normal Visual Assistive Devices Glasses Teaching Assessment Preferences Verbal,Written, Audio/Visual, Demonstration Barriers to Learning None Readiness To Learn Excellent Willingness to Engage in Self Management High Activies Readiness to Engage in Self Management High Activities Anxiety Level Calm Cooperation Cooperative Perception Coherent Interest in Health Problem Asks Questions Education Importance Acknowledges Need Does Patient Smoke tobacco or other No substances Smoking Status Never smoker Is Patient Diabetic Yes Functional Assessment Recent Decline in Ability to Perform Denies Any Declines Culture/Alevism/Family Law Paralegal Cultural/Alevism Needs that may affect No Treatment Plan Teaching: Wound Center *Welcome to the Wound Center -Person Taught Patient -Teaching Method Discussion -Response to teaching Reinforcement needed Welcome to the Wound Care Center Indonesian (a) 1 - NEGATIVE ALL AREAS WC - Nurse 1 - General Ulcer Measurement Start: 12/26/21 08:59 Freq: Status: Active Protocol: Activity Type Activity Date Activity User E-Sign Co-Sign Detail Recorded Client Recorded Date Recorded By Document 12/26/21 09:01 [facility] [id number] 12/26/21 09:22 [facility] 12/26/21 09:01 Wound Center Nurse 1 #8- L 4TH TOE -Combined with other wound No -Current Size (cm) - Length 2.5 -Current Size (cm) - Width 2 -Current Size (cm) - Depth 0.1 -Total Square Cm 5.0 -Date of Last Picture (Recall this 12/26/21 field) -Photo Taken Yes -Epithelialization None Present -Tunneling No -Undermining/Tunneling No -Circular Undermining No -Exudate Amt Medium -Exudate Type Serosanguineous -Wound Margin Distinct, Outline Attached -Granulation Amt Large (67-100%) -Granulation Quality Red -Slough/Fibrin Yes -Necrosis Amt Small (1-33%) -Necrotic Tissue Type Adherent Slough -Texture ([place]-wound Skin Appearance) Assessed,Callus ,Scarring -Moisture ([place]-wound Skin Appearance) Assessed,Dry/ Scaly -Color ([place]-wound Skin Appearance) Assessed -Temperature ([place]-wound Skin No Abnormality Appearance) (Pt Warm) -Tenderness on Palpation ([place]-wound No Skin Appearance) -Ulcer Cleansing Soap and Water -Foul Odor after Cleansing No -Anesthetic Used 4% Lidocaine Solution #7- L 3RD TOE -Combined with other wound No -Current Size (cm) - Length 1.2 -Current Size (cm) - Width 0.5 -Current Size (cm) - Depth 0.1 -Total Square Cm 0.60 -Date of Last Picture (Recall this 12/26/21 field) -Photo Taken Yes -Epithelialization None Present -Tunneling No -Undermining/Tunneling No -Circular Undermining No -Exudate Amt None Present -Wound Margin Distinct, Outline Attached -Granulation Amt None Present (0 %) -Slough/Fibrin Yes -Necrosis Amt Large (67-100%) -Necrotic Tissue Type Adherent Slough -Texture ([place]-wound Skin Appearance) Assessed, Scarring -Moisture ([place]-wound Skin Appearance) Assessed,Dry/ Scaly -Color ([place]-wound Skin Appearance) Assessed -Temperature ([place]-wound Skin No Abnormality Appearance) (Pt Warm) -Tenderness on Palpation ([place]-wound Yes Skin Appearance) -Ulcer Cleansing Soap and Water -Foul Odor after Cleansing No -Anesthetic Used 4% Lidocaine Solution #6 L 2ND TOE -Combined with other wound No -Current Size (cm) - Length 2.5 -Current Size (cm) - Width 2.5 -Current Size (cm) - Depth 0.1 -Total Square Cm 6.25 -Date of Last Picture (Recall this 12/26/21 field) -Photo Taken Yes -Epithelialization None Present -Tunneling No -Undermining/Tunneling No -Circular Undermining No -Exudate Amt Small -Exudate Type Serosanguineous -Wound Margin Distinct, Outline Attached -Granulation Amt Small (1-33%) -Granulation Quality Red -Slough/Fibrin Yes -Necrosis Amt Large (67-100%) -Necrotic Tissue Type Adherent Slough -Texture ([place]-wound Skin Appearance) Assessed, Scarring -Moisture ([place]-wound Skin Appearance) Assessed,Dry/ Scaly -Color ([place]-wound Skin Appearance) Assessed -Temperature ([place]-wound Skin No Abnormality Appearance) (Pt Warm) -Tenderness on Palpation ([place]-wound Yes Skin Appearance) -Ulcer Cleansing Soap and Water -Foul Odor after Cleansing No -Anesthetic Used 4% Lidocaine Solution #5- L GR TOE -Combined with other wound No -Current Size (cm) - Length 2 -Current Size (cm) - Width 0.5 -Current Size (cm) - Depth 0.2 -Total Square Cm 1.0 -Date of Last Picture (Recall this 12/26/21 field) -Photo Taken Yes -Epithelialization None Present -Tunneling No -Undermining/Tunneling No -Circular Undermining No -Exudate Amt Small -Exudate Type Serosanguineous -Wound Margin Distinct, Outline Attached -Granulation Amt Small (1-33%) -Granulation Quality [place] -Slough/Fibrin Yes -Necrosis Amt Large (67-100%) -Necrotic Tissue Type Adherent Slough -Texture ([place]-wound Skin Appearance) Assessed,Callus ,Scarring -Moisture ([place]-wound Skin Appearance) Assessed,Dry/ Scaly -Color ([place]-wound Skin Appearance) Assessed -Temperature ([place]-wound Skin No Abnormality Appearance) (Pt Warm) -Tenderness on Palpation ([place]-wound Yes Skin Appearance) -Ulcer Cleansing Soap and Water -Foul Odor after Cleansing No -Anesthetic Used 4% Lidocaine Solution #4- R HALLUX -Combined with other wound No -Current Size (cm) - Length 0.3 -Current Size (cm) - Width 0.5 -Current Size (cm) - Depth 0.1 -Total Square Cm 0.15 -Date of Last Picture (Recall this 12/26/21 field) -Photo Taken Yes -Epithelialization None Present -Tunneling No -Undermining/Tunneling No -Circular Undermining No -Exudate Amt None Present -Wound Margin Distinct, Outline Attached -Granulation Amt None Present (0 %) -Slough/Fibrin Yes -Necrosis Amt Large (67-100%) -Necrotic Tissue Type Eschar -Texture ([place]-wound Skin Appearance) Assessed, Scarring -Color ([place]-wound Skin Appearance) Assessed, Erythema -Temperature ([place]-wound Skin No Abnormality Appearance) (Pt Warm) -Tenderness on Palpation ([place]-wound Yes Skin Appearance) -Ulcer Cleansing Soap and Water -Foul Odor after Cleansing No -Anesthetic Used 4% Lidocaine Solution #3- R PLANTAR FOOT -Combined with other wound No -Current Size (cm) - Length 1.4 -Current Size (cm) - Width 1.5 -Current Size (cm) - Depth 0.1 -Total Square Cm 2.10 -Date of Last Picture (Recall this 12/26/21 field) -Photo Taken Yes -Epithelialization None Present -Tunneling No -Undermining/Tunneling No -Circular Undermining No -Exudate Amt None Present -Wound Margin Distinct, Outline Attached -Granulation Amt None Present (0 %) -Slough/Fibrin Yes -Necrosis Amt Large (67-100%) -Necrotic Tissue Type Eschar -Texture ([place]-wound Skin Appearance) Assessed, Scarring -Moisture ([place]-wound Skin Appearance) Assessed -Color ([place]-wound Skin Appearance) Assessed -Temperature ([place]-wound Skin No Abnormality Appearance) (Pt Warm) -Tenderness on Palpation ([place]-wound No Skin Appearance) -Ulcer Cleansing Rinsed/ Irrigated with Saline -Foul Odor after Cleansing No -Anesthetic Used 4% Lidocaine Solution Lower Limb Edema Present Yes Right Calf (cm) 36.5 Right Ankle (cm) 23.2 Left Calf (cm) 38 Left Ankle (cm) 24.5 WC - Nurse 3 - General Ulcer D/C NN Start: 12/26/21 08:59 Freq: Status: Active Protocol: Activity Type Activity Date Activity User E-Sign Co-Sign Detail Recorded Client Recorded Date Recorded By Document 12/26/21 10:03 [facility] [id number] 12/26/21 10:05 [facility] 12/26/21 10:03 Wound Care Nurse 3 #8- L 4TH TOE -Ulcer Cleansing Rinsed/ Irrigated with Saline -Foul Odor after Cleansing No -Primary Dressing Applied Other -Other Dressing BETADINE MOIST GAUZE -Primary Dressing Covered/Secured with Dry Gauze & Roll Gauze, Secured with Tape -Other Covering DRSG PER [place] LOOM INSPECTOR #7- L 3RD TOE -Ulcer Cleansing Rinsed/ Irrigated with Saline -Foul Odor after Cleansing No -Primary Dressing Applied Other -Other Dressing BETADINE MOIST GAUZE -Primary Dressing Covered/Secured with Dry Gauze & Roll Gauze, Secured with Tape -Other Covering DRSG PER [place] LOOM INSPECTOR #6 L 2ND TOE -Ulcer Cleansing Rinsed/ Irrigated with Saline -Foul Odor after Cleansing No -Primary Dressing Applied Other -Other Dressing BETADINE MOIST GAUZE -Primary Dressing Covered/Secured with Dry Gauze & Roll Gauze, Secured with Tape -Other Covering DRSG PER [place] LOOM INSPECTOR #5- L GR TOE -Ulcer Cleansing Rinsed/ Irrigated with Saline -Foul Odor after Cleansing No -Primary Dressing Applied Other -Other Dressing BETADINE MOIST GAUZE -Primary Dressing Covered/Secured with Dry Gauze & Roll Gauze, Secured with Tape -Other Covering DRSG PER [place] LOOM INSPECTOR #4- R HALLUX -Ulcer Cleansing Rinsed/ Irrigated with Saline -Foul Odor after Cleansing No -Primary Dressing Applied Other -Other Dressing BETADINE MOIST GAUZE -Primary Dressing Covered/Secured with Dry Gauze & Roll Gauze, Secured with Tape -Other Covering DRSG PER [place] LOOM INSPECTOR #3- R PLANTAR FOOT -Ulcer Cleansing Rinsed/ Irrigated with Saline -Foul Odor after Cleansing No -Primary Dressing Applied Promogran Rosario Matter -Primary Dressing Covered/Secured with Dry Gauze & Roll Gauze, Secured with Tape -Other Covering DRSG PER [place] LOOM INSPECTOR -Promogran Rosario Matter 1 Treatment Response Procedure Tolerated Well Pain Scale: 0-10 Numeric Is Patient Pain Free? Yes WC - Visit Discharge Discharge Condition Stable Ambulatory Status Ambulatory Transportation Private Auto Assessment/Plan Assessment/Plan (1) Non-pressure chronic ulcer of other part of right foot with fat layer exposed: CODE(S): L97.512 - Non-pressure chronic ulcer of other part of right foot with fat layer exposed PLAN: Patient examined evaluated, all findings cussed patient in detail. Cultures were reviewed demonstrated growth of Enterococcus faecalis, staph hominis, strep mitis, actinomyces, Prevotella. Per DIRECTOR ECONOMIC we will initiate doxycycline 100 mg twice daily and Augmentin 500 mg twice daily due to renal concerns with history of transplant. BUN and creatinine mildly elevated at 28 and 1.33. White blood cell count was greater than 11 suggestive of mild le ukocytosis. Patient will discontinue Bactrim. Will consider nutritional supplementation, patient is seeing diabetes education due to elevated A1c with history of renal transplant. We will plan to offload the left foot with an open toed surgical shoe offloading the digital wounds. We will order noninvasive vascular studies to assess his arterial status and wound healing potential with this regard. Bilateral foot wounds were excisionally debrided down to including level subcutaneous tissue of all nonviable tissue using a 15 blade and pickups. No anesthesia required due to neuropathy, hemostasis obtained with light compression. Patient tolerated procedure well. Postdebridement measurements document nursing notes. Debridement is performed as patient does have grossly palpable pulses; however, I believe patient likely has relatively significant microvascular disease. The left side was dressed with Aquacel Ag and Betadine to the interdigital spaces. Right foot wound was dressed with Rosario and DSD. We avoided compression as edema is minimal and will await his vascular studies. Once we get the left side healed we will likely proceed with total contact casting plus minus advanced wound care products to to assist healing. Follow-up in 1 week for continued management. (2) 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 exposed: CODE(S): L97.522 - 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 exposed (3) Type 2 diabetes mellitus with diabetic polyneuropathy: CODE(S): E11.42 - Type 2 diabetes mellitus with diabetic polyneuropathy QUALIFIERS: Diabetes mellitus intermission coordinator insulin use: unspecified [facility] insulin use status Qualified Code(s): E11.42 - Type 2 diabetes mellitus with diabetic polyneuropathy
[2022-01-02 09:59] VITALS: BMI 34.2
--- NOTE | 2022-01-02 10:42 | PN.PCM_ITS ---
History of Present Illness Date of Service: 01/02/22 Chief Complaint: Right leg wound History of Wound: 46-year-old male with diabetic neuropathy returns to clinic today to follow-up for right ulcer with MRSA cellulitis infection. He denies drainage and thing his wound has healed. He denies pain or other illness. He has been compliant. Patient denies any constitutional symptoms at his appointment today. Patient has a recent A1c greater than 8. Patient has a 1-year-old kidney transplant. He has been compliant with treatment at this time. Patient noted some diarrhea with the antibiotics he is taking. Denies any constitutional symptoms or new complaints at this time. Objective Data Objective Data Vital Signs: Vital Signs Temp Pulse Resp BP 96.8 F L 87 18 153/69 H 12/26/21 09:01 12/26/21 09:01 12/26/21 09:01 12/26/21 09:01 Oxygen Delivery Method Room Air Weight: 102.058 kg Body Mass Index (BMI) 34.2 Physical Exam Narrative Patient is alert oriented to person, place and time. Patient ambulates in surgical shoe on the left. And diabetic shoe on the right Vascular: There are atrophic changes of the skin such as thinning shiny taut appearance absent digital hair growth. Pulses are grossly palpable 2 out of 4 dorsalis pedis and posterior tibial bilateral feet. Mild +1 pitting edema to bilateral lower extremity. Neurologic: Light touch protective sensation completely absent to bilateral lower extremity. Dermatologic: Healed right hallux ulceration. Full-thickness ulceration noted to plantar midfoot with necrotic eschar Postdebridement the wound demonstrated 100% granular base with clean skin edges no deep probing or undermining. No acute signs of infection. Full-thickness ulcerations noted to the dorsal lateral aspect of the second third and fourth digit on the left foot with significant periwound hyperkeratosis and dry stable eschar Postdebridement the wounds demonstrate clean granular bases with clean skin edges. Moderate serous drainage noted. No other signs of infection. Resolved signs of infection. Musculoskeletal: No gross wound forming deformity. Muscular strength full to bilateral lower extremity compartments. No crepitus or pain noted to the wound or periwound areas. Debridement Note Debridement Note Post-Debridement Measurements and Additional Note: Post-Debridement Measurements/Treatment WC - Nurse 1 - General Ulcer Assessment Start: 12/26/21 08:59 Freq: Status: Active [facility] Activity Type Activity Date Activity User E-Sign Co-Sign Detail Recorded Client Recorded Date Recorded By Document 12/26/21 09:01 [facility] [id number] 12/26/21 09:22 [facility] Document 01/02/22 09:59 MW [id number] 01/02/22 10:12 MW 12/26/21 01/02/22 09:01 09:59 WC - Today's Visit Information Type of service Initial Visit Follow-up Visit (Physician/SKIN FITTER ) Arrival Mode Ambulatory Ambulatory Transfer Assistance None None Accompanied by brother Patient Identification Verified (Name & Yes Yes ) Patient Requires Transmission-Based No No Precautions Finger Stick Blood Sugar(mg/dl) (if 180 149 indicated): Blood Sugar Stated by Stated by Patient Patient Height and Weight Height 5 ft 8 in Weight 102.058 kg Weight in Pounds 225.0 lbs Weight Measurement Method Stated by Patient Body Mass Index (BMI) 34.2 34.2 BMI Classification Obese Obese BSA - Brandon 2.15 Vital Signs Temperature (97.8 F-99.1 F) 96.8 F L Temperature Source Temporal Pulse Rate (60-100) 87 Pulse Location Monitor Respiratory Rate (12-18) 18 Respiratory rate source Observation Oxygen Delivery Method Room Air Blood Pressure (90/60-120/80) 153/69 H Blood Pressure Mean (mm Hg) 97 Source Monitor Position Sitting Blood Pressure Location Left Arm History Since Last Visit- (Skip if this is Patient's initial visit) Left Footwear Diabetic Shoe Right Footwear Diabetic Shoe Pain Scale: 0-10 Numeric Is Patient Pain Free? No Yes toe wound -Description Burning -Intensity 6 -Duration (hours) Chronic -Pain Behavior No Change in Behavior -Pain Aggravating Factors Standing, Sitting,Walking -Alleviating Factors/Interventions Exercise/ Ambulation, Turning/ Repositioning, Distraction, Will continue to monitor, Patient denies need for intervention, Emotional Support Lower Extremity Assessment/ Foot Assessment/ Toe Nail Assessment Right -Lower Extremity Comment (If N/A Above PT HAS SEEN DR Kentrell RAPHAEL IN THE PAST, LAST ARTERIAL IN 2019 -Posterior Tibial Palpable No -Posterior Tibial Doppler Multiphasic -Dorsalis Pedis Doppler Monophasic -Extremity Color Pale -Hair Growth on Legs No -Hair Growth on Toes No -Temperature of Extremity Warm -Other Deformity No -Prior Foot Ulcer No -Charcot Joint No -Prior Amputation No -Thick Yes -Discolored Yes -Deformed No -Improper Length & Hygeine No Left -Lower Extremity Comment (If N/A Above PT HAS SEEN DR Kentrell RAPHAEL IN THE PAST, ARTERIAL STUDIES IN 2019 -Posterior Tibial Palpable No -Posterior Tibial Doppler Monophasic -Dorsalis Pedis Palpable Yes -Dorsalis Pedis Doppler Multiphasic -Extremity Color Pale -Hair Growth on Legs No -Hair Growth on Toes No -Other Deformity No -Prior Foot Ulcer No -Charcot Joint No -Prior Amputation No -Thick Yes -Discolored Yes -Deformed No -Improper Length & Hygeine No Neuropathy Assessment Feet - Top Side and Bottom <Entered> (a) Communication Assessment Preferred language Taiwanese Frame Cleaner Required No Able to Read Yes Able to Write Yes Right Hearing Abillity Normal Left Hearing Abillity Normal Visual Assistive Devices Glasses Teaching Assessment Preferences Verbal,Written, Audio/Visual, Demonstration Barriers to Learning None Readiness To Learn Excellent Willingness to Engage in Self Management High Activies Readiness to Engage in Self Management High Activities Anxiety Level Calm Cooperation Cooperative Perception Coherent Interest in Health Problem Asks Questions Education Importance Acknowledges Need Does Patient Smoke tobacco or other No substances Smoking Status Never smoker Is Patient Diabetic Yes Functional Assessment Recent Decline in Ability to Perform Denies Any Declines Culture/Scientologist/Geochemical Laboratory Technician Cultural/Scientologist Needs that may affect No Treatment Plan Teaching: Wound Center *Welcome to the Wound Center -Person Taught Patient -Teaching Method Discussion -Response to teaching Reinforcement needed Welcome to the Wound Care Center Taiwanese (a) 1 - NEGATIVE ALL AREAS WC - Nurse 1 - General Ulcer Measurement Start: 12/26/21 08:59 Freq: Status: Active Protocol: Activity Type Activity Date Activity User E-Sign Co-Sign Detail Recorded Client Recorded Date Recorded By Document 12/26/21 09:01 [facility] [id number] 12/26/21 09:22 [facility] Document 01/02/22 09:59 MW [id number] 01/02/22 10:12 MW 12/26/21 01/02/22 09:01 09:59 Wound Center Nurse 1 #8- L 4TH TOE -Combined with other wound No No -Current Size (cm) - Length 2.5 1.2 -Current Size (cm) - Width 2 2.0 -Current Size (cm) - Depth 0.1 0.2 -Total Square Cm 5.0 2.40 -Date of Last Picture (Recall this 12/26/21 01/02/22 field) -Photo Taken Yes Yes -Epithelialization None Present None Present -Tunneling No No -Undermining/Tunneling No No -Circular Undermining No No -Exudate Amt Medium Medium -Exudate Type Serosanguineous Serosanguineous -Wound Margin Distinct, Distinct, Outline Outline Attached Attached -Granulation Amt Large (67-100%) Large (67-100%) -Granulation Quality Red Red -Slough/Fibrin Yes Yes -Necrosis Amt Small (1-33%) Small (1-33%) -Necrotic Tissue Type Adherent Slough Adherent Slough -Structure Exposed N/A -Texture (Dun[place]-wound Skin Appearance) Assessed,Callus Assessed, ,Scarring Localized Edema -Moisture ([place]-wound Skin Appearance) Assessed,Dry/ Assessed,Dry/ Scaly Scaly -Color ([place]-wound Skin Appearance) Assessed No Abnormality, Assessed -Temperature ([place]-wound Skin No Abnormality No Abnormality Appearance) (Pt Warm) (Pt Warm) -Tenderness on Palpation ([place]-wound No No Skin Appearance) -Ulcer Cleansing Soap and Water Soap and Water -Foul Odor after Cleansing No No -Anesthetic Used 4% Lidocaine 5% Lidocaine Solution Gel #7- L 3RD TOE -Combined with other wound No No -Current Size (cm) - Length 1.2 2.0 -Current Size (cm) - Width 0.5 0.8 -Current Size (cm) - Depth 0.1 0.1 -Total Square Cm 0.60 1.60 -Date of Last Picture (Recall this 12/26/21 01/02/22 field) -Photo Taken Yes Yes -Epithelialization None Present None Present -Tunneling No No -Undermining/Tunneling No No -Circular Undermining No No -Exudate Amt None Present Small -Exudate Type Serosanguineous -Wound Margin Distinct, Flat & Intact Outline Attached -Granulation Amt None Present (0 None Present (0 %) %) -Granulation Quality N/A -Slough/Fibrin Yes Yes -Necrosis Amt Large (67-100%) Large (67-100%) -Necrotic Tissue Type Adherent Slough Adherent Slough -Structure Exposed N/A -Texture (Dunia-wound Skin Appearance) Assessed, Assessed, Scarring Localized Edema -Moisture ([place]-wound Skin Appearance) Assessed,Dry/ Assessed,Dry/ Scaly Scaly -Color ([place]-wound Skin Appearance) Assessed No Abnormality, Assessed -Temperature ([place]-wound Skin No Abnormality No Abnormality Appearance) (Pt Warm) (Pt Warm) -Tenderness on Palpation ([place]-wound Yes No Skin Appearance) -Ulcer Cleansing Soap and Water Soap and Water -Foul Odor after Cleansing No No -Anesthetic Used 4% Lidocaine 5% Lidocaine Solution Gel #6 L 2ND TOE -Combined with other wound No No -Current Size (cm) - Length 2.5 2.4 -Current Size (cm) - Width 2.5 2.2 -Current Size (cm) - Depth 0.1 0.1 -Total Square Cm 6.25 5.28 -Date of Last Picture (Recall this 12/26/21 01/02/22 field) -Photo Taken Yes Yes -Epithelialization None Present None Present -Tunneling No No -Undermining/Tunneling No No -Circular Undermining No No -Exudate Amt Small Small -Exudate Type Serosanguineous Serosanguineous -Wound Margin Distinct, Flat & Intact Outline Attached -Granulation Amt Small (1-33%) None Present (0 %) -Granulation Quality Red N/A -Slough/Fibrin Yes Yes -Necrosis Amt Large (67-100%) Large (67-100%) -Necrotic Tissue Type Adherent Slough Adherent Slough -Structure Exposed N/A -Texture (Dunia-wound Skin Appearance) Assessed, Assessed, Scarring Localized Edema -Moisture (Dunia-wound Skin Appearance) Assessed,Dry/ Assessed,Dry/ Scaly Scaly -Color (Dunia-wound Skin Appearance) Assessed No Abnormality, Assessed -Temperature ([place]-wound Skin No Abnormality No Abnormality Appearance) (Pt Warm) (Pt Warm) -Tenderness on Palpation ([place]ia-wound Yes No Skin Appearance) -Ulcer Cleansing Soap and Water Soap and Water -Foul Odor after Cleansing No No -Anesthetic Used 4% Lidocaine 5% Lidocaine Solution Gel #5- L GR TOE -Combined with other wound No No -Current Size (cm) - Length 2 4.0 -Current Size (cm) - Width 0.5 1.0 -Current Size (cm) - Depth 0.2 0.1 -Total Square Cm 1.0 4.00 -Date of Last Picture (Recall this 12/26/21 01/02/22 field) -Photo Taken Yes Yes -Epithelialization None Present None Present -Tunneling No No -Undermining/Tunneling No No -Circular Undermining No No -Exudate Amt Small Small -Exudate Type Serosanguineous Serosanguineous -Wound Margin Distinct, Flat & Intact Outline Attached -Granulation Amt Small (1-33%) None Present (0 %) -Granulation Quality [place] N/A -Slough/Fibrin Yes Yes -Necrosis Amt Large (67-100%) Large (67-100%) -Necrotic Tissue Type Adherent Slough Adherent Slough -Structure Exposed N/A -Texture (Dunia-wound Skin Appearance) Assessed,Callus Assessed, ,Scarring Localized Edema -Moisture (Dunia-wound Skin Appearance) Assessed,Dry/ Assessed, Scaly Weeping -Color (Dunia-wound Skin Appearance) Assessed No Abnormality, Assessed -Temperature ([place]-wound Skin No Abnormality No Abnormality Appearance) (Pt Warm) (Pt Warm) -Tenderness on Palpation (Dunia-wound Yes No Skin Appearance) -Ulcer Cleansing Soap and Water Soap and Water -Foul Odor after Cleansing No No -Anesthetic Used 4% Lidocaine 5% Lidocaine Solution Gel #4- R HALLUX -Combined with other wound No No -Current Size (cm) - Length 0.3 0.2 -Current Size (cm) - Width 0.5 0.5 -Current Size (cm) - Depth 0.1 0.1 -Total Square Cm 0.15 0.10 -Date of Last Picture (Recall this 12/26/21 01/02/22 field) -Photo Taken Yes Yes -Epithelialization None Present None Present -Tunneling No No -Undermining/Tunneling No No -Circular Undermining No No -Exudate Amt None Present Small -Exudate Type Serosanguineous -Wound Margin Distinct, Flat & Intact Outline Attached -Granulation Amt None Present (0 None Present (0 %) %) -Granulation Quality N/A -Slough/Fibrin Yes Yes -Necrosis Amt Large (67-100%) Large (67-100%) -Necrotic Tissue Type Eschar Adherent Slough -Structure Exposed N/A -Texture (Dunia-wound Skin Appearance) Assessed, Assessed,Callus Scarring -Moisture (Dunia-wound Skin Appearance) Assessed,Dry/ Scaly -Color (Dunia-wound Skin Appearance) Assessed, No Abnormality, Erythema Assessed -Temperature ([place]ia-wound Skin No Abnormality No Abnormality Appearance) (Pt Warm) (Pt Warm) -Tenderness on Palpation (Dunia-wound Yes No Skin Appearance) -Ulcer Cleansing Soap and Water Not Cleansed -Foul Odor after Cleansing No No -Anesthetic Used 4% Lidocaine 5% Lidocaine Solution Gel #3- R PLANTAR FOOT -Combined with other wound No No -Current Size (cm) - Length 1.4 0.6 -Current Size (cm) - Width 1.5 1.5 -Current Size (cm) - Depth 0.1 0.2 -Total Square Cm 2.10 0.90 -Date of Last Picture (Recall this 12/26/21 01/02/22 field) -Photo Taken Yes Yes -Epithelialization None Present None Present -Tunneling No No -Undermining/Tunneling No No -Circular Undermining No No -Exudate Amt None Present Small -Exudate Type Serosanguineous -Wound Margin Distinct, Flat & Intact Outline Attached -Granulation Amt None Present (0 Small (1-33%) %) -Granulation Quality N/A,[place] -Slough/Fibrin Yes Yes -Necrosis Amt Large (67-100%) Large (67-100%) -Necrotic Tissue Type Eschar Adherent Slough -Structure Exposed N/A -Texture (Dunia-wound Skin Appearance) Assessed, Assessed,Callus Scarring -Moisture (Dunia-wound Skin Appearance) Assessed Dry/Scaly -Color (Dunia-wound Skin Appearance) Assessed No Abnormality, Assessed -Temperature ([place]ia-wound Skin No Abnormality No Abnormality Appearance) (Pt Warm) (Pt Warm) -Tenderness on Palpation (Duina-wound No No Skin Appearance) -Ulcer Cleansing Rinsed/ Soap and Water Irrigated with Saline -Foul Odor after Cleansing No No -Anesthetic Used 4% Lidocaine Solution Lower Limb Edema Present Yes No Right Calf (cm) 36.5 Right Ankle (cm) 23.2 Left Calf (cm) 38 Left Ankle (cm) 24.5 WC - Nurse 2 - General Ulcer CM Notes Start: 12/26/21 08:59 Freq: Status: Active Protocol: Activity Type Activity Date Activity User E-Sign Co-Sign Detail Recorded Client Recorded Date Recorded By Document 12/26/21 10:19 CARLINE [id number] 12/26/21 10:32 JF Edit Result 12/26/21 10:19 JF (1) [id number] 12/27/21 07:04 PL Document 01/02/22 10:26 [id number] 01/02/22 10:30 JF (1) #3- R PLANTAR FOOT - Debridement - Subq, 1st 20sq cm Yes => No 12/26/21 01/02/22 10:19 10:26 Wound Center Nurse 2 #8- L 4TH TOE -Time 10:23 10:26 -Correct Patient Yes Yes -Correct Side, Site, Position Yes Yes -Correct Procedure Yes Yes -Procedure Performed Yes Yes -Type of Procedure Debridement Debridement -Clinical Debridement Subcutaneous Subcutaneous -Tissue Removed Subcutaneous Subcutaneous -Post Debridement (cm) - Length 2.5 1.2 -Post Debridement (cm) - Width 2.1 2.1 -Post Debridement (cm) - Depth 0.1 0.2 -Total Square (Post) (cm) 5.25 2.52 -Area of Debridement (cm) - Length 2.5 1.2 -Area of Debridement (cm) - Width 2.1 2.1 -Total Square (Area) (cm) 5.25 2.52 -Tunneling No No -Undermining/Tunneling No No -Circular Undermining No No -Wound/Ulcer Outcome Not Healed Not Healed -Ulcer Cleansing Rinsed/ Rinsed/ Irrigated with Irrigated with Saline Saline -Foul Odor after Cleansing No No -Bioengineered Tissue No No -Bleeding Controlled with Pressure Pressure -Treatment Response Procedure Procedure Tolerated Well Tolerated Well -Offloading Yes Yes -Type of Offloading Camwalker Surgical Shoe -Debridement - Subq, 1st 20sq cm No No #7- L 3RD TOE -Time 10:24 10:27 -Correct Patient Yes Yes -Correct Side, Site, Position Yes Yes -Correct Procedure Yes Yes -Procedure Performed Yes Yes -Type of Procedure Debridement Debridement -Clinical Debridement Subcutaneous Subcutaneous -Tissue Removed Subcutaneous Subcutaneous -Post Debridement (cm) - Length 1.2 2.1 -Post Debridement (cm) - Width 0.6 0.8 -Post Debridement (cm) - Depth 0.1 0.1 -Total Square (Post) (cm) 0.72 1.68 -Area of Debridement (cm) - Length 1.2 2.1 -Area of Debridement (cm) - Width 0.6 0.8 -Total Square (Area) (cm) 0.72 1.68 -Tunneling No No -Undermining/Tunneling No No -Circular Undermining No No -Wound/Ulcer Outcome Not Healed Not Healed -Ulcer Cleansing Rinsed/ Rinsed/ Irrigated with Irrigated with Saline Saline -Foul Odor after Cleansing No No -Bioengineered Tissue No No -Bleeding Controlled with Pressure Pressure -Treatment Response Procedure Procedure Tolerated Well Tolerated Well -Offloading Yes Yes -Type of Offloading Camwalker Surgical Shoe -Debridement - Subq, 1st 20sq cm No No #6 L 2ND TOE -Time 10: 10:27 -Correct Patient Yes Yes -Correct Side, Site, Position Yes Yes -Correct Procedure Yes Yes -Procedure Performed Yes Yes -Type of Procedure Debridement Debridement -Clinical Debridement Subcutaneous Subcutaneous -Tissue Removed Subcutaneous Subcutaneous -Post Debridement (cm) - Length 2.6 2.5 -Post Debridement (cm) - Width 2.6 2.2 -Post Debridement (cm) - Depth 0.1 0.1 -Total Square (Post) (cm) 6.76 5.50 -Area of Debridement (cm) - Length 2.6 2.5 -Area of Debridement (cm) - Width 2.6 2.2 -Total Square (Area) (cm) 6.76 5.50 -Tunneling No No -Undermining/Tunneling No No -Circular Undermining No No -Wound/Ulcer Outcome Not Healed Not Healed -Ulcer Cleansing Rinsed/ Rinsed/ Irrigated with Irrigated with Saline Saline -Foul Odor after Cleansing No No -Bioengineered Tissue No No -Bleeding Controlled with Pressure Pressure,Silver Nitrate -Treatment Response Procedure Procedure Tolerated Well Tolerated Well -Offloading Yes -Type of Offloading Camwalker Surgical Shoe -Debridement - Subq, 1st 20sq cm No No #5- L GR TOE -Time 10: 10:28 -Correct Patient Yes Yes -Correct Side, Site, Position Yes Yes -Correct Procedure Yes Yes -Procedure Performed Yes Yes -Type of Procedure Debridement Debridement -Clinical Debridement Subcutaneous Subcutaneous -Tissue Removed Subcutaneous Subcutaneous -Post Debridement (cm) - Length 2 4.1 -Post Debridement (cm) - Width 0.6 1.1 -Post Debridement (cm) - Depth 0.2 0.1 -Total Square (Post) (cm) 1.2 4.51 -Area of Debridement (cm) - Length 2.0 4.1 -Area of Debridement (cm) - Width 0.6 1.1 -Total Square (Area) (cm) 1.20 4.51 -Tunneling No No -Undermining/Tunneling No No -Circular Undermining No No -Wound/Ulcer Outcome Not Healed Not Healed -Ulcer Cleansing Rinsed/ Rinsed/ Irrigated with Irrigated with Saline Saline -Foul Odor after Cleansing No No -Bioengineered Tissue No No -Bleeding Controlled with Pressure Pressure,Silver Nitrate -Treatment Response Procedure Procedure Tolerated Well Tolerated Well -Offloading Yes Yes -Type of Offloading Camwalker Surgical Shoe -Debridement - Subq, 1st 20sq cm No No #4- R HALLUX -Time 10: 10:29 -Correct Patient Yes Yes -Correct Side, Site, Position Yes Yes -Correct Procedure Yes Yes -Procedure Performed Yes -Type of Procedure Debridement Debridement -Clinical Debridement Subcutaneous Subcutaneous -Tissue Removed Subcutaneous Subcutaneous -Post Debridement (cm) - Length 0.4 0.3 -Post Debridement (cm) - Width 0.5 0.5 -Post Debridement (cm) - Depth 0.1 0.1 -Total Square (Post) (cm) 0.20 0.15 -Area of Debridement (cm) - Length 0.4 0.3 -Area of Debridement (cm) - Width 0.5 0.5 -Total Square (Area) (cm) 0.20 0.15 -Tunneling No No -Undermining/Tunneling No No -Circular Undermining No No -Wound/Ulcer Outcome Not Healed Not Healed -Ulcer Cleansing Rinsed/ Rinsed/ Irrigated with Irrigated with Saline Saline -Foul Odor after Cleansing No No -Bioengineered Tissue No No -Bleeding Controlled with Pressure Pressure -Treatment Response Procedure Procedure Tolerated Well Tolerated Well -Offloading No Yes -Type of Offloading Surgical Shoe -Debridement - Subq, 1st 20sq cm Yes No #3- R PLANTAR FOOT -Time 10 10:29 -Correct Patient Yes Yes -Correct Side, Site, Position Yes Yes -Correct Procedure Yes Yes -Procedure Performed No Yes -Type of Procedure Debridement Debridement -Clinical Debridement Subcutaneous Subcutaneous -Tissue Removed Subcutaneous Subcutaneous -Post Debridement (cm) - Length 1.5 0.6 -Post Debridement (cm) - Width 1.5 1.6 -Post Debridement (cm) - Depth 0.1 0.2 -Total Square (Post) (cm) 2.25 0.96 -Area of Debridement (cm) - Length 1.5 0.6 -Area of Debridement (cm) - Width 1.5 1.6 -Total Square (Area) (cm) 2.25 0.96 -Tunneling No No -Undermining/Tunneling No No -Circular Undermining No No -Wound/Ulcer Outcome Not Healed Not Healed -Ulcer Cleansing Rinsed/ Rinsed/ Irrigated with Irrigated with Saline Saline -Foul Odor after Cleansing No No -Bioengineered Tissue No No -Bleeding Controlled with Pressure Pressure -Treatment Response Procedure Procedure Tolerated Well Tolerated Well -Offloading No Yes -Type of Offloading Surgical Shoe -Debridement - Subq, 1st 20sq cm No Yes Pain Scale: 0-10 Numeric Is Patient Pain Free? Yes Yes WC - Nurse 3 - General Ulcer D/C NN Start: 12/26/21 08:59 Freq: Status: Active Protocol: Activity Type Activity Date Activity User E-Sign Co-Sign Detail Recorded Client Recorded Date Recorded By Document 12/26/21 10:03 [facility] [id number] 12/26/21 10:05 [facility] 12/26/21 10:03 Wound Care Nurse 3 #8- L 4TH TOE -Ulcer Cleansing Rinsed/ Irrigated with Saline -Foul Odor after Cleansing No -Primary Dressing Applied Other -Other Dressing BETADINE MOIST GAUZE -Primary Dressing Covered/Secured with Dry Gauze & Roll Gauze, Secured with Tape -Other Covering DRSG PER [place] PHYSICAL AERODYNAMICIST #7- L 3RD TOE -Ulcer Cleansing Rinsed/ Irrigated with Saline -Foul Odor after Cleansing No -Primary Dressing Applied Other -Other Dressing BETADINE MOIST GAUZE -Primary Dressing Covered/Secured with Dry Gauze & Roll Gauze, Secured with Tape -Other Covering DRSG PER [place] PHYSICAL AERODYNAMICIST #6 L 2ND TOE -Ulcer Cleansing Rinsed/ Irrigated with Saline -Foul Odor after Cleansing No -Primary Dressing Applied Other -Other Dressing BETADINE MOIST GAUZE -Primary Dressing Covered/Secured with Dry Gauze & Roll Gauze, Secured with Tape -Other Covering DRSG PER [place] PHYSICAL AERODYNAMICIST #5- L GR TOE -Ulcer Cleansing Rinsed/ Irrigated with Saline -Foul Odor after Cleansing No -Primary Dressing Applied Other -Other Dressing BETADINE MOIST GAUZE -Primary Dressing Covered/Secured with Dry Gauze & Roll Gauze, Secured with Tape -Other Covering DRSG PER [place] PHYSICAL AERODYNAMICIST #4- R HALLUX -Ulcer Cleansing Rinsed/ Irrigated with Saline -Foul Odor after Cleansing No -Primary Dressing Applied Other -Other Dressing BETADINE MOIST GAUZE -Primary Dressing Covered/Secured with Dry Gauze & Roll Gauze, Secured with Tape -Other Covering DRSG PER [place] PHYSICAL AERODYNAMICIST #3- R PLANTAR FOOT -Ulcer Cleansing Rinsed/ Irrigated with Saline -Foul Odor after Cleansing No -Primary Dressing Applied Promogran Rosario Matter -Primary Dressing Covered/Secured with Dry Gauze & Roll Gauze, Secured with Tape -Other Covering DRSG PER [place] PHYSICAL AERODYNAMICIST -Promogran Rosario Matter 1 Treatment Response Procedure Tolerated Well Pain Scale: 0-10 Numeric Is Patient Pain Free? Yes WC - Visit Discharge Discharge Condition Stable Ambulatory Status Ambulatory Transportation Private Auto Assessment/Plan Assessment/Plan (1) Non-pressure chronic ulcer of other part of right foot with fat layer exposed: CODE(S): L97.512 - Non-pressure chronic ulcer of other part of right foot with fat layer exposed PLAN: Patient examined evaluated, all findings cussed patient in detail. Patient will discontinue p.o. antibiotics as he is demonstrating some diarrhea and there are no residual clinical signs of infection. Will consider nutritional supplementation, patient is seeing diabetes education due to elevated A1c with history of renal transplant. We will plan to offload the left foot with an open toed surgical shoe offloading the digital wounds. We will proceed with more aggressive offloading on the right side once the left toe wounds are healed. Patient is awaiting noninvasive vascular studies to evaluate his arterial flow Bilateral foot wounds were excisionally debrided down to including level subcutaneous tissue of all nonviable tissue using a 15 blade and pickups. No anesthesia required due to neuropathy, hemostasis obtained with light compression. Patient tolerated procedure well. Postdebridement measurements document nursing notes. Debridement is performed as patient does have grossly palpable pulses; however, I believe patient likely has relatively significant microvascular disease. The left side was dressed with Aquacel Ag and Betadine to the interdigital spaces. Right foot wound was dressed with Rosario and DSD. We avoided compression as edema is minimal and will await his vascular studies. Once we get the left side healed we will likely proceed with total contact casting plus minus advanced wound care products to to assist healing. Follow-up in 1 week for continued management. 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
[2022-01-16 09:46] VITALS: BP 153/77; PULSE 114; RESP 16; TEMP 36.8; BMI 34.2
== END 2022-01-06 23:59 | disposition home or self-care (01) ==
LOC: WC 09:45
PROVIDERS: PCP Internal Medicine; Visit Provider Podiatrist
DX: E11.621 Type 2 diabetes mellitus with foot ulcer (principal); L97.512 Non-pressure chronic ulcer of other part of right foot with fat layer exposed; E11.22 Type 2 diabetes mellitus with diabetic chronic kidney disease; E11.42 Type 2 diabetes mellitus with diabetic polyneuropathy; N18.4 Chronic kidney disease, stage 4 (severe); Z79.4 Long term (current) use of insulin; R60.0 Localized edema; I16.1 Hypertensive emergency; I25.10 Atherosclerotic heart disease of native coronary artery without angina pectoris; E78.5 Hyperlipidemia, unspecified; I12.9 Hypertensive chronic kidney disease with stage 1 through stage 4 chronic kidney disease, or unspecified chronic kidney disease; Z79.82 Long term (current) use of aspirin
CPT/HCPCS: 11042; 99213; G0463

== ENCOUNTER 2022-02-06 09:45 | Outpatient (RCR) | payer MEDICARE, MEDICAID, SELFPAY ==
[2022-01-07 00:44] VITALS: BP 153/69; PULSE 87; RESP 18; TEMP 36; BMI 34.2
--- NOTE | 2022-01-09 11:06 | ART_ITS ---
Reason For Study: PVD Procedure A bilateral lower extremity continuous wave Doppler with analog waveform analysis,segmental pressures,and ankle brachial indexes without exercise. Left Segmental Pressures Left digit = 91 mmHg. COMMUNITY ARTIST and DPA are noncompressible. The left dorsalis pedis waveforms are triphasic. The left posterior tibial artery waveforms are triphasic. Right Segmental Pressures Right dorsalis pedis artery = 161mmHg. Right digit = 118 mmHg. COMMUNITY ARTIST is noncompressible. The right dorsalis pedis waveforms are triphasic. The right posterior tibial artery waveforms are triphasic. Indices The right ankle brachial index by the dorsalis pedis is 1.19. The right digital-brachial index is .87. The left digital-brachial index is .67. VL/Lower Ext Art Exam w/o Exercis Interpretation Summary Triphasic Doppler waveforms are noted at ankle level bilaterally. Pulse-volume recordings appear satisfactory at all levels bilaterally, including low thigh, calf, ankle, and d igital levels. The resting right ankle-brachial index is normal. The resting left ankle-brachial i ndex could not be determined due to the non-compressibility of the vasculature. The right digital -brachial index is normal. The left digital-brachial index is mildly diminished. There is evidence of arterial calcification at ankle level on the left. Arteria l flow appears normal at ankle level bilaterally, and at digital level on the right. There is evidenc e of mild arterial occlusive disease at digital level on the left. Ordering Physician: Mayo Levy Performed By: Jonny Mills RVT
--- NOTE | 2022-01-16 10:26 | PN.PCM_ITS ---
History of Present Illness Date of Service: 01/16/22 Chief Complaint: Right leg wound History of Wound: 46-year-old male with diabetic neuropathy returns to clinic today to follow-up for right ulcer with MRSA cellulitis infection. He denies drainage and thing his wound has healed. He denies pain or other illness. He has been compliant. Patient denies any constitutional symptoms at his appointment today. Patient has a recent A1c greater than 8. Patient has a 1-year-old kidney transplant. He has been compliant with treatment at this time. Patient noted some diarrhea with the antibiotics he is taking. Denies any constitutional symptoms or new complaints at this time. Objective Data Objective Data Vital Signs: Vital Signs Temp Pulse Resp BP 96.8 F L 87 18 153/69 H 01/07/22 00:44 01/07/22 00:44 01/07/22 00:44 01/07/22 00:44 Weight: 102.058 kg Body Mass Index (BMI) 34.2 Physical Exam Narrative Patient is alert oriented to person, place and time. Patient ambulates in surgical shoe on the left. And diabetic shoe on the right. Vascular: There are atrophic changes of the skin such as thinning shiny taut appearance absent digital hair growth. Pulses are grossly palpable 2 out of 4 dorsalis pedis and posterior tibial bilateral feet. Mild +1 pitting edema to bilateral lower extremity. Neurologic: Light touch protective sensation completely absent to bilateral lower extremity. Dermatologic: Healed right hallux ulceration. Full-thickness ulceration noted to plantar midfoot with necrotic eschar Postdebridement the wound demonstrated 100% granular base with clean skin edges no deep probing or undermining, wound improving at this time. No acute signs of infection. Full-thickness ulcerations noted to the dorsal lateral aspect of the second third and fourth digit on the left foot with significant periwound hyperkeratosis and dry stable eschar Postdebridement the wounds demonstrate clean granular bases with clean skin edges. Moderate serous drainage noted. No other signs of infection. Resolved signs of infection. Musculoskeletal: No gross wound forming deformity. Muscular strength full to bilateral lower extremity compartments. No crepitus or pain noted to the wound or periwound areas. Debridement Note Debridement Note Post-Debridement Measurements and Additional Note: Post-Debridement Measurements/Treatment WC - Nurse 2 - General Ulcer CM Notes Start: 01/16/22 10:16 Freq: Status: Active Protocol: Activity Type Activity Date Activity User E-Sign Co-Sign Detail Recorded Client Recorded Date Recorded By Document 01/16/22 10:16 CARLINE [id number] 01/16/22 10:24 CARLINE 01/16/22 10:16 Wound Center Nurse 2 #8- L 4TH TOE -Time 10:17 -Correct Patient Yes -Correct Side, Site, Position Yes -Correct Procedure Yes -Procedure Performed Yes -Type of Procedure Debridement -Clinical Debridement Subcutaneous -Tissue Removed Subcutaneous -Post Debridement (cm) - Length 2.4 -Post Debridement (cm) - Width 1.5 -Post Debridement (cm) - Depth 0.1 -Total Square (Post) (cm) 3.60 -Area of Debridement (cm) - Length 2.4 -Area of Debridement (cm) - Width 1.5 -Total Square (Area) (cm) 3.60 -Tunneling No -Undermining/Tunneling No -Circular Undermining No -Wound/Ulcer Outcome Not Healed -Ulcer Cleansing Rinsed/ Irrigated with Saline -Foul Odor after Cleansing No -Bioengineered Tissue No -Bleeding Controlled with Pressure -Treatment Response Procedure Tolerated Well -Offloading Yes -Type of Offloading Surgical Shoe -Debridement - Subq, 1st 20sq cm No #7- L 3RD TOE -Time 10:17 -Correct Patient Yes -Correct Side, Site, Position Yes -Correct Procedure Yes -Procedure Performed Yes -Type of Procedure Debridement -Clinical Debridement Subcutaneous -Tissue Removed Subcutaneous -Post Debridement (cm) - Length 2.1 -Post Debridement (cm) - Width 1 -Post Debridement (cm) - Depth 0.1 -Total Square (Post) (cm) 2.1 -Area of Debridement (cm) - Length 2.1 -Area of Debridement (cm) - Width 1 -Total Square (Area) (cm) 2.1 -Tunneling No -Circular Undermining No -Wound/Ulcer Outcome Not Healed -Ulcer Cleansing Rinsed/ Irrigated with Saline -Foul Odor after Cleansing No -Bioengineered Tissue No -Bleeding Controlled with Pressure -Treatment Response Procedure Tolerated Well -Offloading Yes -Type of Offloading Surgical Shoe -Debridement - Subq, 1st 20sq cm No #6 L 2ND TOE -Correct Patient Yes -Correct Side, Site, Position Yes -Correct Procedure Yes -Procedure Performed Yes -Type of Procedure Debridement -Clinical Debridement Subcutaneous -Tissue Removed Subcutaneous -Post Debridement (cm) - Length 2.5 -Post Debridement (cm) - Width 1.6 -Post Debridement (cm) - Depth 0.1 -Total Square (Post) (cm) 4.00 -Area of Debridement (cm) - Length 2.5 -Area of Debridement (cm) - Width 1.6 -Total Square (Area) (cm) 4.00 -Tunneling No -Undermining/Tunneling No -Circular Undermining No -Wound/Ulcer Outcome Not Healed -Ulcer Cleansing Rinsed/ Irrigated with Saline -Foul Odor after Cleansing No -Bioengineered Tissue No -Bleeding Controlled with Pressure -Treatment Response Procedure Tolerated Well -Offloading Yes -Type of Offloading Surgical Shoe -Debridement - Subq, 20sq cm No #5- L GR TOE -Time 10:19 -Correct Patient Yes -Correct Side, Site, Position Yes -Correct Procedure Yes -Procedure Performed Yes -Type of Procedure Debridement -Clinical Debridement Subcutaneous -Tissue Removed Subcutaneous -Post Debridement (cm) - Length 1.1 -Post Debridement (cm) - Width 0.5 -Post Debridement (cm) - Depth 0.1 -Total Square (Post) (cm) 0.55 -Area of Debridement (cm) - Length 1.1 -Area of Debridement (cm) - Width 0.5 -Total Square (Area) (cm) 0.55 -Tunneling No -Undermining/Tunneling No -Circular Undermining No -Wound/Ulcer Outcome Not Healed -Ulcer Cleansing Rinsed/ Irrigated with Saline -Foul Odor after Cleansing No -Bioengineered Tissue No -Bleeding Controlled with Pressure -Treatment Response Procedure Tolerated Well -Offloading Yes -Type of Offloading Surgical Shoe -Debridement - Subq, 20sq cm No #4- R HALLUX -Time 10:20 -Correct Patient Yes -Correct Side, Site, Position Yes -Correct Procedure Yes -Procedure Performed Yes -Type of Procedure Debridement -Clinical Debridement Subcutaneous -Tissue Removed Subcutaneous -Post Debridement (cm) - Length 0.4 -Post Debridement (cm) - Width 0.4 -Post Debridement (cm) - Depth 0.1 -Total Square (Post) (cm) 0.16 -Area of Debridement (cm) - Length 0.4 -Area of Debridement (cm) - Width 0.4 -Total Square (Area) (cm) 0.16 -Tunneling No -Circular Undermining No -Wound/Ulcer Outcome Not Healed -Ulcer Cleansing Rinsed/ Irrigated with Saline -Foul Odor after Cleansing No -Bioengineered Tissue No -Bleeding Controlled with Pressure -Treatment Response Procedure Tolerated Well -Offloading No -Debridement - Subq, 1st 20sq cm No #3- R PLANTAR FOOT -Time 10:22 -Correct Patient Yes -Correct Side, Site, Position Yes -Correct Procedure Yes -Procedure Performed Yes -Type of Procedure Debridement -Clinical Debridement Subcutaneous -Tissue Removed Subcutaneous -Post Debridement (cm) - Length 0.3 -Post Debridement (cm) - Width 0.5 -Post Debridement (cm) - Depth 0.2 -Total Square (Post) (cm) 0.15 -Area of Debridement (cm) - Length 0.3 -Area of Debridement (cm) - Width 0.5 -Total Square (Area) (cm) 0.15 -Tunneling No -Undermining/Tunneling No -Circular Undermining No -Wound/Ulcer Outcome Not Healed -Ulcer Cleansing Rinsed/ Irrigated with Saline -Foul Odor after Cleansing No -Bioengineered Tissue No -Bleeding Controlled with Pressure -Treatment Response Procedure Tolerated Well -Offloading No -Debridement - Subq, 1st 20sq cm Yes Pain Scale: 0-10 Numeric Is Patient Pain Free? Yes Assessment/Plan Assessment/Plan (1) 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 exp osed: CODE(S): L97.522 - 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 exposed (2) Non-pressure chronic ulcer of other part of right foot with fat layer expos ed: CODE(S): L97.512 - Non-pressure chronic ulcer of other part of right foot with fat layer exposed PLAN: Patient examined evaluated, all findings cussed patient in detail. No signs of infection, no oral antibiotics indicated at this time. Will consider nutritional supplementation, patient is seeing diabetes education due to elevated A1c with history of renal transplant. We will plan to offload the left foot with an open toed surgical shoe offloading the digital wounds. We will proceed with more aggressive offloading on the right side once the left toe wounds are healed. Patient is awaiting noninvasive vascular studies to evaluate his arterial flow Bilateral foot wounds were excisionally debrided down to including level subcutaneous tissue of all nonviable tissue using a 15 blade and pickups. No anesthesia required due to neuropathy, hemostasis obtained with light compression. Patient tolerated procedure well. Postdebridement measurements document nursing notes. Debridement is performed as patient does have grossly palpable pulses; however, I believe patient likely has relatively significant microvascular disease. The left side was dressed with Aquacel Ag and Betadine to the interdigital spaces. Right foot wound was dressed with Rosario and DSD. We avoided compression as edema is minimal and will await his vascular studies. Once we get the left side healed we will likely proceed with total contact casting plus minus advanced wound care products to to assist healing. Follow-up in 1 week for continued management. 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
[2022-01-23 09:43] VITALS: BP 142/79; PULSE 90; RESP 16; TEMP 36.4; BMI 34.2
--- NOTE | 2022-01-23 10:18 | PN.PCM_ITS ---
History of Present Illness Date of Service: 01/23/22 Chief Complaint: Right leg wound History of Wound: 46-year-old male with diabetic neuropathy returns to clinic today to follow-up for right ulcer with MRSA cellulitis infection. He denies drainage and thing his wound has healed. He denies pain or other illness. He has been compliant. Patient denies any constitutional symptoms at his appointment today. Patient has a recent A1c greater than 8. Patient has a 1-year-old kidney transplant. He has been compliant with treatment at this time. Patient noted some diarrhea with the antibiotics he is taking. Denies any constitutional symptoms or new complaints at this time. Objective Data Objective Data Vital Signs: Vital Signs Temp Pulse Resp BP 97.6 F L 90 16 142/79 H 01/23/22 09:43 01/23/22 09:43 01/23/22 09:43 01/23/22 09:43 Oxygen Delivery Method Room Air Weight: 102.058 kg Body Mass Index (BMI) 34.2 Physical Exam Narrative Patient is alert oriented to person, place and time. Patient ambulates in surgical shoe on the left. And diabetic shoe on the right. Vascular: There are atrophic changes of the skin such as thinning shiny taut appearance absent digital hair growth. Pulses are grossly palpable 2 out of 4 dorsalis pedis and posterior tibial bilateral feet. Mild +1 pitting edema to bilateral lower extremity. Neurologic: Light touch protective sensation completely absent to bilateral lower extremity. Dermatologic: Healed right hallux ulceration. Full-thickness ulceration noted to plantar midfoot with necrotic eschar Postdebridement the wound demonstrated 100% granular base with clean skin edges no deep probing or undermining, wound improving at this time. No acute signs of infection. Full-thickness ulcerations noted to the dorsal lateral aspect of the second third and fourth digit on the left foot with significant periwound hyperkeratosis and dry stable eschar Postdebridement the wounds demonstrate clean granular bases with clean skin edges. Moderate serous drainage noted. No other signs of infection. Resolved signs of infection. Musculoskeletal: No gross wound forming deformity. Muscular strength full to bilateral lower extremity compartments. No crepitus or pain noted to the wound or periwound areas. 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 ) Arrival Mode Ambulatory Transfer Assistance None Patient Identification Verified (Name & Yes ) Height and Weight Body Mass Index (BMI) 34.2 BMI Classification Obese Vital Signs Temperature (97.8 F-99.1 F) 97.6 F L Temperature Source Temporal Pulse Rate (60-100) 90 Pulse Location Monitor Respiratory Rate (12-18) 16 Respiratory rate source Observation Oxygen Delivery Method Room Air Blood Pressure (90/60-120/80) 142/79 H Blood Pressure Mean (mm Hg) 100 Source Monitor Position Sitting Blood Pressure Location Left Arm History Since Last Visit- (Skip if this is Patient's initial visit) Have you changed medications since your No last visit? Any new allergies or adverse reactions No Had a fall/change in ADL's that may No increase risk of falls Signs or symptoms of abuse and/or No neglect since last visit Have you been in the hospital since your No last visit? Has dressing in place as prescribed Yes Has compression in place as prescribed N/A Has offloadiing in place as prescribed Yes Experienced any changes in pain level or No management Left Footwear Surgical Shoe with pressure relief insole Right Footwear Regular Shoe Pain Scale: 0-10 Numeric Is Patient Pain Free? Yes - Nurse 1 - General Ulcer Measurement Start: 01/16/22 10:16 Freq: Status: Active Protocol: Activity Type Activity Date Activity User E-Sign Co-Sign Detail Recorded Client Recorded Date Recorded By Document 01/23/22 09:43 [facility] [id number] 01/23/22 09:52 [facility] 01/23/22 09:43 Wound Center Nurse 1 #8- L 4TH TOE -Combined with other wound No -Current Size (cm) - Length 1.5 -Current Size (cm) - Width 1.2 -Current Size (cm) - Depth 0.1 -Total Square Cm 1.80 -Date of Last Picture (Recall this 01/23/22 field) -Photo Taken Yes -Epithelialization Small 1-33% -Tunneling No -Undermining/Tunneling No -Circular Undermining No -Exudate Amt Small -Exudate Type Serosanguineous -Wound Margin Distinct, Outline Attached -Granulation Amt Medium (34-66%) -Granulation Quality [place] -Slough/Fibrin Yes -Necrosis Amt Small (1-33%) -Necrotic Tissue Type Adherent Slough -Texture (Dunia-wound Skin Appearance) Assessed, Scarring -Moisture (Dunia-wound Skin Appearance) Assessed -Color (Dunia-wound Skin Appearance) Assessed -Temperature (Dunia-wound Skin No Abnormality Appearance) (Pt Warm) -Tenderness on Palpation (Dunia-wound No Skin Appearance) -Ulcer Cleansing Soap and Water -Foul Odor after Cleansing No -Anesthetic Used 4% Lidocaine Solution #7- L 3RD TOE -Combined with other wound No -Current Size (cm) - Length 0.1 -Current Size (cm) - Width 0.1 -Current Size (cm) - Depth 0.1 -Total Square Cm 0.01 -Date of Last Picture (Recall this 01/23/22 field) -Photo Taken Yes -Epithelialization Large 67-100% #6 L 2ND TOE -Combined with other wound No -Current Size (cm) - Length 2.0 -Current Size (cm) - Width 1.6 -Current Size (cm) - Depth 0.1 -Total Square Cm 3.20 -Date of Last Picture (Recall this 01/23/22 field) -Photo Taken Yes -Epithelialization Small 1-33% -Tunneling No -Undermining/Tunneling No -Circular Undermining No -Exudate Amt Small -Exudate Type Serous -Wound Margin Distinct, Outline Attached -Granulation Amt Small (1-33%) -Granulation Quality Red -Slough/Fibrin Yes -Necrosis Amt Large (67-100%) -Necrotic Tissue Type Adherent Slough -Texture (Dunia-wound Skin Appearance) Assessed,Callus -Moisture (Dunia-wound Skin Appearance) Assessed,Dry/ Scaly -Color (Dunia-wound Skin Appearance) Assessed -Temperature (Dunia-wound Skin No Abnormality Appearance) (Pt Warm) -Tenderness on Palpation (Dunia-wound No Skin Appearance) -Ulcer Cleansing Soap and Water -Foul Odor after Cleansing No -Anesthetic Used 4% Lidocaine Solution #5- L GR TOE -Combined with other wound No -Current Size (cm) - Length 0.1 -Current Size (cm) - Width 0.1 -Current Size (cm) - Depth 0.1 -Total Square Cm 0.01 -Date of Last Picture (Recall this 01/23/22 field) -Photo Taken Yes -Epithelialization Large 67-100% -Texture (Dunia-wound Skin Appearance) Callus -Moisture (Dunia-wound Skin Appearance) Assessed,Dry/ Scaly -Color (Dunia-wound Skin Appearance) Assessed -Temperature (Dunia-wound Skin No Abnormality Appearance) (Pt Warm) -Tenderness on Palpation (Dunia-wound No Skin Appearance) -Ulcer Cleansing Soap and Water -Foul Odor after Cleansing No -Anesthetic Used 4% Lidocaine Solution #4- R HALLUX -Combined with other wound No -Current Size (cm) - Length 0.1 -Current Size (cm) - Width 0.1 -Current Size (cm) - Depth 0.1 -Total Square Cm 0.01 -Date of Last Picture (Recall this 01/23/22 field) -Photo Taken Yes -Epithelialization Large 67-100% -Necrosis Amt Small (1-33%) -Necrotic Tissue Type Eschar -Texture (Dunia-wound Skin Appearance) Assessed, Scarring -Moisture (Dunia-wound Skin Appearance) Assessed -Color (Dunia-wound Skin Appearance) Assessed -Temperature (Dunia-wound Skin No Abnormality Appearance) (Pt Warm) -Tenderness on Palpation (Dunia-wound No Skin Appearance) -Ulcer Cleansing Soap and Water -Foul Odor after Cleansing No -Anesthetic Used 4% Lidocaine Solution -Wound Comment(s) SMALL SCAB #3- R PLANTAR FOOT -Combined with other wound No -Current Size (cm) - Length 0.9 -Current Size (cm) - Width 0.8 -Current Size (cm) - Depth 0.1 -Total Square Cm 0.72 -Date of Last Picture (Recall this 01/23/22 field) -Photo Taken Yes -Tunneling No -Undermining/Tunneling No -Circular Undermining No -Exudate Amt None Present -Wound Margin Distinct, Outline Attached -Granulation Amt None Present (0 %) -Necrosis Amt Large (67-100%) -Necrotic Tissue Type Adherent Slough -Texture (Dunia-wound Skin Appearance) Assessed,Callus ,Scarring -Moisture (Dunia-wound Skin Appearance) Assessed,Dry/ Scaly -Color (Dunia-wound Skin Appearance) Assessed -Temperature (Dunia-wound Skin No Abnormality Appearance) (Pt Warm) -Tenderness on Palpation (Dunia-wound No Skin Appearance) -Ulcer Cleansing Soap and Water -Foul Odor after Cleansing No -Anesthetic Used 4% Lidocaine Solution WC - Nurse 2 - General Ulcer CM Notes Start: 01/16/22 10:16 Freq: Status: Active Protocol: Activity Type Activity Date Activity User E-Sign Co-Sign Detail Recorded Client Recorded Date Recorded By Document 01/16/22 10:16 CARLINE [id number] 01/16/22 10:24 CARLINE 01/16/22 10:16 Wound Center Nurse 2 #8- L 4TH TOE -Time 10:17 -Correct Patient Yes -Correct Side, Site, Position Yes -Correct Procedure Yes -Procedure Performed Yes -Type of Procedure Debridement -Clinical Debridement Subcutaneous -Tissue Removed Subcutaneous -Post Debridement (cm) - Length 2.4 -Post Debridement (cm) - Width 1.5 -Post Debridement (cm) - Depth 0.1 -Total Square (Post) (cm) 3.60 -Area of Debridement (cm) - Length 2.4 -Area of Debridement (cm) - Width 1.5 -Total Square (Area) (cm) 3.60 -Tunneling No -Undermining/Tunneling No -Circular Undermining No -Wound/Ulcer Outcome Not Healed -Ulcer Cleansing Rinsed/ Irrigated with Saline -Foul Odor after Cleansing No -Bioengineered Tissue No -Bleeding Controlled with Pressure -Treatment Response Procedure Tolerated Well -Offloading Yes -Type of Offloading Surgical Shoe -Debridement - Subq, 1st 20sq cm No #7- L 3RD TOE -Time 10:17 -Correct Patient Yes -Correct Side, Site, Position Yes -Correct Procedure Yes -Procedure Performed Yes -Type of Procedure Debridement -Clinical Debridement Subcutaneous -Tissue Removed Subcutaneous -Post Debridement (cm) - Length 2.1 -Post Debridement (cm) - Width 1 -Post Debridement (cm) - Depth 0.1 -Total Square (Post) (cm) 2.1 -Area of Debridement (cm) - Length 2.1 -Area of Debridement (cm) - Width 1 -Total Square (Area) (cm) 2.1 -Tunneling No -Circular Undermining No -Wound/Ulcer Outcome Not Healed -Ulcer Cleansing Rinsed/ Irrigated with Saline -Foul Odor after Cleansing No -Bioengineered Tissue No -Bleeding Controlled with Pressure -Treatment Response Procedure Tolerated Well -Offloading Yes -Type of Offloading Surgical Shoe -Debridement - Subq, 1st 20sq cm No #6 L 2ND TOE -Correct Patient Yes -Correct Side, Site, Position Yes -Correct Procedure Yes -Procedure Performed Yes -Type of Procedure Debridement -Clinical Debridement Subcutaneous -Tissue Removed Subcutaneous -Post Debridement (cm) - Length 2.5 -Post Debridement (cm) - Width 1.6 -Post Debridement (cm) - Depth 0.1 -Total Square (Post) (cm) 4.00 -Area of Debridement (cm) - Length 2.5 -Area of Debridement (cm) - Width 1.6 -Total Square (Area) (cm) 4.00 -Tunneling No -Undermining/Tunneling No -Circular Undermining No -Wound/Ulcer Outcome Not Healed -Ulcer Cleansing Rinsed/ Irrigated with Saline -Foul Odor after Cleansing No -Bioengineered Tissue No -Bleeding Controlled with Pressure -Treatment Response Procedure Tolerated Well -Offloading Yes -Type of Offloading Surgical Shoe -Debridement - Subq, 20sq cm No #5- L GR TOE -Time 10:19 -Correct Patient Yes -Correct Side, Site, Position Yes -Correct Procedure Yes -Procedure Performed Yes -Type of Procedure Debridement -Clinical Debridement Subcutaneous -Tissue Removed Subcutaneous -Post Debridement (cm) - Length 1.1 -Post Debridement (cm) - Width 0.5 -Post Debridement (cm) - Depth 0.1 -Total Square (Post) (cm) 0.55 -Area of Debridement (cm) - Length 1.1 -Area of Debridement (cm) - Width 0.5 -Total Square (Area) (cm) 0.55 -Tunneling No -Undermining/Tunneling No -Circular Undermining No -Wound/Ulcer Outcome Not Healed -Ulcer Cleansing Rinsed/ Irrigated with Saline -Foul Odor after Cleansing No -Bioengineered Tissue No -Bleeding Controlled with Pressure -Treatment Response Procedure Tolerated Well -Offloading Yes -Type of Offloading Surgical Shoe -Debridement - Subq, 1st 20sq cm No #4- R HALLUX -Time 10:20 -Correct Patient Yes -Correct Side, Site, Position Yes -Correct Procedure Yes -Procedure Performed Yes -Type of Procedure Debridement -Clinical Debridement Subcutaneous -Tissue Removed Subcutaneous -Post Debridement (cm) - Length 0.4 -Post Debridement (cm) - Width 0.4 -Post Debridement (cm) - Depth 0.1 -Total Square (Post) (cm) 0.16 -Area of Debridement (cm) - Length 0.4 -Area of Debridement (cm) - Width 0.4 -Total Square (Area) (cm) 0.16 -Tunneling No -Circular Undermining No -Wound/Ulcer Outcome Not Healed -Ulcer Cleansing Rinsed/ Irrigated with Saline -Foul Odor after Cleansing No -Bioengineered Tissue No -Bleeding Controlled with Pressure -Treatment Response Procedure Tolerated Well -Offloading No -Debridement - Subq, 1st 20sq cm No #3- R PLANTAR FOOT -Time 10:22 -Correct Patient Yes -Correct Side, Site, Position Yes -Correct Procedure Yes -Procedure Performed Yes -Type of Procedure Debridement -Clinical Debridement Subcutaneous -Tissue Removed Subcutaneous -Post Debridement (cm) - Length 0.3 -Post Debridement (cm) - Width 0.5 -Post Debridement (cm) - Depth 0.2 -Total Square (Post) (cm) 0.15 -Area of Debridement (cm) - Length 0.3 -Area of Debridement (cm) - Width 0.5 -Total Square (Area) (cm) 0.15 -Tunneling No -Undermining/Tunneling No -Circular Undermining No -Wound/Ulcer Outcome Not Healed -Ulcer Cleansing Rinsed/ Irrigated with Saline -Foul Odor after Cleansing No -Bioengineered Tissue No -Bleeding Controlled with Pressure -Treatment Response Procedure Tolerated Well -Offloading No -Debridement - Subq, 1st 20sq cm Yes Pain Scale: 0-10 Numeric Is Patient Pain Free? Yes WC - Nurse 3 - General Ulcer D/C NN Start: 01/16/22 10:16 Freq: Status: Active Protocol: Activity Type Activity Date Activity User E-Sign Co-Sign Detail Recorded Client Recorded Date Recorded By Document 01/16/22 10:34 MW [id number] 01/16/22 10:37 MW 01/16/22 10:34 Wound Care Nurse 3 #8- L 4TH TOE -Ulcer Cleansing Rinsed/ Irrigated with Saline -Foul Odor after Cleansing No -Negative Pressure Wound Therapy N/A -Primary Dressing Applied Aquacel AG 4x4 -Primary Dressing Covered/Secured with Dry Gauze & Roll Gauze, Secured with Tape -Aquacel AG 4x4 1 #7- L 3RD TOE -Ulcer Cleansing Rinsed/ Irrigated with Saline -Foul Odor after Cleansing No -Negative Pressure Wound Therapy N/A -Other Dressing aquacel ag -Primary Dressing Covered/Secured with Dry Gauze, Secured with Tape #6 L 2ND TOE -Ulcer Cleansing Rinsed/ Irrigated with Saline -Foul Odor after Cleansing No -Negative Pressure Wound Therapy N/A -Other Dressing aquacel ag -Primary Dressing Covered/Secured with Dry Gauze & Roll Gauze, Secured with Tape #5- L GR TOE -Ulcer Cleansing Rinsed/ Irrigated with Saline -Foul Odor after Cleansing No -Negative Pressure Wound Therapy N/A -Other Dressing Aquacel AG -Primary Dressing Covered/Secured with Dry Gauze & Roll Gauze, Secured with Tape #4- R HALLUX -Ulcer Cleansing Rinsed/ Irrigated with Saline -Foul Odor after Cleansing No -Negative Pressure Wound Therapy N/A -Other Dressing Aquacel AG -Primary Dressing Covered/Secured with Dry Gauze, Secured with Tape #3- R PLANTAR FOOT -Ulcer Cleansing Rinsed/ Irrigated with Saline -Foul Odor after Cleansing No -Negative Pressure Wound Therapy N/A -Other Dressing sarbjit -Primary Dressing Covered/Secured with Dry Gauze & Roll Gauze, Secured with Tape Treatment Response Procedure Tolerated Well Pain Scale: 0-10 Numeric Is Patient Pain Free? Yes Teaching: Wound Center Dressing Your Wound -Person Taught Patient -Teaching Method Discussion, Demonstration -Response to teaching Verbalize understanding WC - Visit Discharge Discharge Condition Stable Ambulatory Status Ambulatory Transportation Private Auto Accompanied by self Medication Reconcilliation completed & No provided to patient/care provider Clinical Summary of Care Provided Yes Assessment/Plan Assessment/Plan (1) 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 exposed: CODE(S): L97.522 - 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 exposed (2) Non-pressure chronic ulcer of other part of right foot with fat layer exposed: CODE(S): L97.512 - Non-pressure chronic ulcer of other part of right foot with fat layer exposed PLAN: Patient examined evaluated, all findings cussed patient in detail. No signs of infection, no oral antibiotics indicated at this time. Will consider nutritional supplementation, patient is seeing diabetes education due to elevated A1c with history of renal transplant. We will plan to offload the left foot with an open toed surgical shoe offloading the digital wounds. We will proceed with more aggressive offloading on the ri ght side once the left toe wounds are healed. Patient is awaiting noninvasive vascular studies to evaluate his arterial flow Bilateral foot wounds were excisionally debrided down to including level paul bcutaneous tissue of all nonviable tissue using a 15 blade and pickups. No anesthesia required due to neuropathy, hemostasis obtained with light compression. Patient tolerated procedure well. Postdebridement measurements document nursing notes. Debridement is performed as patient does have grossly palpable pulses; however, I believe patient likely has relatively significant microvascular disease. The left side was dressed with Aquacel Ag and Betadine to the interdigital spaces. Right foot wound was dressed with Sarbjit and DSD. We avoided compression as edema is minimal and will await his vascular studies. Once we get the left side healed we will likely proceed with total contact casting plus minus advanced wound care products to to assist healing. Follow-up in 1 week for continued management. (3) Type 2 diabetes mellitus with diabetic polyneuropathy: CODE(S): E11.42 - Type 2 diabetes mellitus with diabetic polyneuropathy QUALIFIERS: Diabetes mellitus termite technician insulin use: unspecified [place] [facility] insulin use status Qualified Code(s): E11.42 - Type 2 diabetes m ellitus with diabetic polyneuropathy
[2022-02-06 10:03] VITALS: BP 152/81; PULSE 87; RESP 16; TEMP 36.6; BMI 34.2
--- NOTE | 2022-02-06 10:34 | PN.PCM_ITS ---
History of Present Illness Date of Service: 02/06/22 Chief Complaint: Right leg wound History of Wound: 46-year-old male with diabetic neuropathy returns to clinic today to follow-up for right ulcer with MRSA cellulitis infection. He denies drainage and thing his wound has healed. He denies pain or other illness. He has been compliant. Patient denies any constitutional symptoms at his appointment today. Patient has a recent A1c greater than 8. Patient has a 1-year-old kidney transplant. He has been compliant with treatment at this time. Patient noted some diarrhea with the antibiotics he is taking. Denies any constitutional symptoms or new complaints at this time. Objective Data Objective Data Vital Signs: Vital Signs Temp Pulse Resp BP 97.8 F 87 16 152/81 H 02/06/22 10:03 02/06/22 10:03 02/06/22 10:03 02/06/22 10:03 Oxygen Delivery Method Room Air Weight: 102.058 kg Body Mass Index (BMI) 34.2 Physical Exam Narrative Patient is alert oriented to person, place and time. Patient ambulates in surgical shoe on the left. And diabetic shoe on the right. Vascular: There are atrophic changes of the skin such as thinning shiny taut appearance absent digital hair growth. Pulses are grossly palpable 2 out of 4 dorsalis pedis and posterior tibial bilateral feet. Mild +1 pitting edema to bilateral lower extremity. Neurologic: Light touch protective sensation completely absent to bilateral lower extremity. Dermatologic: Healed right hallux ulceration. Full-thickness ulceration noted to plantar midfoot - healed. No acute signs of infection. Full-thickness ulcerations noted to the dorsal lateral aspect of the second and fourth digit on the left foot with significant periwound hyperkeratosis and dry stable eschar Postdebridement the wounds demonstrate clean granular bases with clean skin edges. Moderate serous drainage noted. No other signs of infection. Resolved signs of infection. Musculoskeletal: No gross wound forming deformity. Muscular strength full to bilateral lower extremity compartments. No crepitus or pain noted to the wound or periwound areas. Debridement Note Debridement Note Post-Debridement Measurements and Additional Note: Post-Debridement Measurements/Treatment OSWALD - Nurse 1 - General Ulcer Assessment Start: 01/16/22 10:16 Freq: Status: Active Protocol: TOREYEXT Activity Type Activity Date Activity User E-Sign Co-Sign Detail Recorded Client Recorded Date Recorded By Document 01/23/22 09:43 [facility] [id number] 01/23/22 09:52 [facility] Document 02/06/22 10:03 [facility] [id number] 02/06/22 10:18 [facility] 01/23/22 02/06/22 09:43 10:03 - Today's Visit Information Type of service Follow-up Visit Follow-up Visit (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 ) ) Arrival Mode Ambulatory Ambulatory Transfer Assistance None None Accompanied by Patient Identification Verified (Name & Yes Yes ) Patient Requires Transmission-Based No Precautions Height and Weight Body Mass Index (BMI) 34.2 34.2 BMI Classification Obese Obese Vital Signs Temperature (97.8 F-99.1 F) 97.6 F L 97.8 F Temperature Source Temporal Temporal Pulse Rate (60-100) 90 87 Pulse Location Monitor Monitor Respiratory Rate (12-18) 16 16 Respiratory rate source Observation Observation Oxygen Delivery Method Room Air Room Air Blood Pressure (90/60-120/80) 142/79 H 152/81 H Blood Pressure Mean (mm Hg) 100 104 Source Monitor Monitor Position Sitting Sitting Blood Pressure Location Left Arm Left Arm History Since Last Visit- (Skip if this is Patient's initial visit) Have you changed medications since your No No last visit? Any new allergies or adverse reactions No No Had a fall/change in ADL's that may No No increase risk of falls Signs or symptoms of abuse and/or No No neglect since last visit Have you been in the hospital since your No No last visit? Has dressing in place as prescribed Yes Yes Has compression in place as prescribed N/A N/A Has offloadiing in place as prescribed Yes Yes Experienced any changes in pain level or No No management Left Footwear Surgical Shoe Diabetic Shoe with pressure relief insole Right Footwear Regular Shoe Diabetic Shoe Pain Scale: 0-10 Numeric Is Patient Pain Free? Yes Yes - Nurse 1 - General Ulcer Measurement Start: 01/16/22 10:16 Freq: Status: Active Protocol: Activity Type Activity Date Activity User E-Sign Co-Sign Detail Recorded Client Recorded Date Recorded By Document 01/23/22 09:43 [facility] [id number] 01/23/22 09:52 [facility] Document 02/06/22 10:03 [facility] [id number] 02/06/22 10:18 [facility] 01/23/22 02/06/22 09:43 10:03 Wound Center Nurse 1 #8- L 4TH TOE -Combined with other wound No No -Current Size (cm) - Length 1.5 1.8 -Current Size (cm) - Width 1.2 2.4 -Current Size (cm) - Depth 0.1 0.1 -Total Square Cm 1.80 4.32 -Date of Last Picture (Recall this 01/23/22 02/06/22 field) -Photo Taken Yes Yes -Epithelialization Small 1-33% None Present -Tunneling No No -Undermining/Tunneling No No -Circular Undermining No No -Exudate Amt Small None Present -Exudate Type Serosanguineous Serosanguineous -Wound Margin Distinct, Distinct, Outline Outline Attached Attached -Granulation Amt Medium (34-66%) Small (1-33%) -Granulation Quality Meno Red -Slough/Fibrin Yes Yes -Necrosis Amt Small (1-33%) Large (67-100%) -Necrotic Tissue Type Adherent Slough Adherent Slough -Texture (Dunia-wound Skin Appearance) Assessed, Assessed, Scarring Scarring -Moisture (Dunia-wound Skin Appearance) Assessed Assessed,Dry/ Scaly -Color (Dunia-wound Skin Appearance) Assessed Assessed -Temperature (Dunia-wound Skin No Abnormality No Abnormality Appearance) (Pt Warm) (Pt Warm) -Tenderness on Palpation (Dunia-wound No No Skin Appearance) -Ulcer Cleansing Soap and Water Rinsed/ Irrigated with Saline -Foul Odor after Cleansing No No -Anesthetic Used 4% Lidocaine 4% Lidocaine Solution Solution #7- L 3RD TOE -Combined with other wound No -Current Size (cm) - Length 0.1 -Current Size (cm) - Width 0.1 -Current Size (cm) - Depth 0.1 -Total Square Cm 0.01 -Date of Last Picture (Recall this 01/23/22 field) -Photo Taken Yes -Epithelialization Large 67-100% #6 L 2ND TOE -Combined with other wound No No -Current Size (cm) - Length 2.0 2.1 -Current Size (cm) - Width 1.6 1.8 -Current Size (cm) - Depth 0.1 0.1 -Total Square Cm 3.20 3.78 -Date of Last Picture (Recall this 01/23/22 02/06/22 field) -Photo Taken Yes Yes -Epithelialization Small 1-33% None Present -Tunneling No No -Undermining/Tunneling No No -Circular Undermining No No -Exudate Amt Small None Present -Exudate Type Serous Serosanguineous -Wound Margin Distinct, Distinct, Outline Outline Attached Attached -Granulation Amt Small (1-33%) Small (1-33%) -Granulation Quality Red Red -Slough/Fibrin Yes Yes -Necrosis Amt Large (67-100%) Large (67-100%) -Necrotic Tissue Type Adherent Slough Adherent Slough -Texture (Dunia-wound Skin Appearance) Assessed,Callus Assessed, Scarring -Moisture (Dunia-wound Skin Appearance) Assessed,Dry/ Assessed,Dry/ Scaly Scaly -Color (Dunia-wound Skin Appearance) Assessed Assessed -Temperature (Dunia-wound Skin No Abnormality No Abnormality Appearance) (Pt Warm) (Pt Warm) -Tenderness on Palpation (Dunia-wound No No Skin Appearance) -Ulcer Cleansing Soap and Water Rinsed/ Irrigated with Saline -Foul Odor after Cleansing No No -Anesthetic Used 4% Lidocaine 4% Lidocaine Solution Solution #5- L GR TOE -Combined with other wound No No -Current Size (cm) - Length 0.1 0.1 -Current Size (cm) - Width 0.1 0.1 -Current Size (cm) - Depth 0.1 0.1 -Total Square Cm 0.01 0.01 -Date of Last Picture (Recall this 01/23/22 02/06/22 field) -Photo Taken Yes Yes -Epithelialization Large 67-100% Large 67-100% -Tunneling No -Undermining/Tunneling No -Circular Undermining No -Exudate Amt None Present -Necrosis Amt Large (67-100%) -Necrotic Tissue Type Adherent Slough -Texture (Dunia-wound Skin Appearance) Callus Assessed, Scarring -Moisture (Dunia-wound Skin Appearance) Assessed,Dry/ Assessed Scaly -Color (Dunia-wound Skin Appearance) Assessed Assessed -Temperature (Dunia-wound Skin No Abnormality No Abnormality Appearance) (Pt Warm) (Pt Warm) -Tenderness on Palpation (Dunia-wound No No Skin Appearance) -Ulcer Cleansing Soap and Water Rinsed/ Irrigated with Saline -Foul Odor after Cleansing No No -Anesthetic Used 4% Lidocaine 4% Lidocaine Solution Solution #4- R HALLUX -Combined with other wound No No -Current Size (cm) - Length 0.1 0.1 -Current Size (cm) - Width 0.1 0.1 -Current Size (cm) - Depth 0.1 0.1 -Total Square Cm 0.01 0.01 -Date of Last Picture (Recall this 01/23/22 02/06/22 field) -Photo Taken Yes Yes -Epithelialization Large 67-100% Large 67-100% -Tunneling No -Undermining/Tunneling No -Circular Undermining No -Exudate Amt None Present -Necrosis Amt Small (1-33%) -Necrotic Tissue Type Eschar -Texture (Dunia-wound Skin Appearance) Assessed, Assessed Scarring -Moisture (Dunia-wound Skin Appearance) Assessed Assessed,Dry/ Scaly -Color (Dunia-wound Skin Appearance) Assessed Assessed -Temperature (Dunia-wound Skin No Abnormality No Abnormality Appearance) (Pt Warm) (Pt Warm) -Tenderness on Palpation (Dunia-wound No No Skin Appearance) -Ulcer Cleansing Soap and Water Rinsed/ Irrigated with Saline -Foul Odor after Cleansing No No -Anesthetic Used 4% Lidocaine 4% Lidocaine Solution Solution -Wound Comment(s) SMALL SCAB #3- R PLANTAR FOOT -Combined with other wound No No -Current Size (cm) - Length 0.9 0.1 -Current Size (cm) - Width 0.8 0.1 -Current Size (cm) - Depth 0.1 0.1 -Total Square Cm 0.72 0.01 -Date of Last Picture (Recall this 01/23/22 02/06/22 field) -Photo Taken Yes Yes -Epithelialization Large 67-100% -Tunneling No No -Undermining/Tunneling No No -Circular Undermining No No -Exudate Amt None Present None Present -Wound Margin Distinct, Distinct, Outline Outline Attached Attached -Granulation Amt None Present (0 None Present (0 %) %) -Slough/Fibrin Yes -Necrosis Amt Large (67-100%) Small (1-33%) -Necrotic Tissue Type Adherent Slough Adherent Slough -Texture (Dunia-wound Skin Appearance) Assessed,Callus Assessed, ,Scarring Scarring -Moisture (Dunia-wound Skin Appearance) Assessed,Dry/ Assessed,Dry/ Scaly Scaly -Color (Dunia-wound Skin Appearance) Assessed Assessed -Temperature (Dunia-wound Skin No Abnormality No Abnormality Appearance) (Pt Warm) (Pt Warm) -Tenderness on Palpation (Dunia-wound No No Skin Appearance) -Ulcer Cleansing Soap and Water Rinsed/ Irrigated with Saline -Foul Odor after Cleansing No No -Anesthetic Used 4% Lidocaine 4% Lidocaine Solution Solution WC - Nurse 2 - General Ulcer CM Notes Start: 01/16/22 10:16 Freq: Status: Active Protocol: Activity Type Activity Date Activity User E-Sign Co-Sign Detail Recorded Client Recorded Date Recorded By Document 01/16/22 10:16 [id number] 01/16/22 10:24 Document 01/23/22 10:13 [id number] 01/23/22 10:20 01/16/22 01/23/22 10:16 10:13 Wound Center Nurse 2 #8- L 4TH TOE -Time 10:17 10:14 -Correct Patient Yes Yes -Correct Side, Site, Position Yes Yes -Correct Procedure Yes Yes -Procedure Performed Yes Yes -Type of Procedure Debridement Debridement -Clinical Debridement Subcutaneous Subcutaneous -Tissue Removed Subcutaneous Subcutaneous -Post Debridement (cm) - Length 2.4 1.5 -Post Debridement (cm) - Width 1.5 1.3 -Post Debridement (cm) - Depth 0.1 0.1 -Total Square (Post) (cm) 3.60 1.95 -Area of Debridement (cm) - Length 2.4 1.5 -Area of Debridement (cm) - Width 1.5 1.3 -Total Square (Area) (cm) 3.60 1.95 -Tunneling No No -Undermining/Tunneling No No -Circular Undermining No No -Wound/Ulcer Outcome Not Healed Not Healed -Ulcer Cleansing Rinsed/ Rinsed/ Irrigated with Irrigated with Saline Saline -Foul Odor after Cleansing No No -Bioengineered Tissue No No -Bleeding Controlled with Pressure Pressure,Silver Nitrate -Treatment Response Procedure Procedure Tolerated Well Tolerated Well -Offloading Yes Yes -Type of Offloading Surgical Shoe Surgical Shoe -Debridement - Subq, 1st 20sq cm No No #7- L 3RD TOE -Time 10:17 -Correct Patient Yes No -Correct Side, Site, Position Yes No -Correct Procedure Yes No -Procedure Performed Yes No -Type of Procedure Debridement -Clinical Debridement Subcutaneous -Tissue Removed Subcutaneous -Post Debridement (cm) - Length 2.1 0 -Post Debridement (cm) - Width 1 0 -Post Debridement (cm) - Depth 0.1 0 -Total Square (Post) (cm) 2.1 0 -Area of Debridement (cm) - Length 2.1 0 -Area of Debridement (cm) - Width 1 0 -Total Square (Area) (cm) 2.1 0 -Tunneling No -Circular Undermining No -Wound/Ulcer Outcome Not Healed Healed- Epithelialized -Ulcer Cleansing Rinsed/ Irrigated with Saline -Foul Odor after Cleansing No -Bioengineered Tissue No -Bleeding Controlled with Pressure -Treatment Response Procedure Tolerated Well -Offloading Yes -Type of Offloading Surgical Shoe -Debridement - Subq, 1st 20sq cm No #6 L 2ND TOE -Time 10:14 -Correct Patient Yes Yes -Correct Side, Site, Position Yes Yes -Correct Procedure Yes Yes -Procedure Performed Yes Yes -Type of Procedure Debridement Debridement -Clinical Debridement Subcutaneous Subcutaneous -Tissue Removed Subcutaneous Subcutaneous -Post Debridement (cm) - Length 2.5 2.0 -Post Debridement (cm) - Width 1.6 1.7 -Post Debridement (cm) - Depth 0.1 0.1 -Total Square (Post) (cm) 4.00 3.40 -Area of Debridement (cm) - Length 2.5 2.0 -Area of Debridement (cm) - Width 1.6 1.7 -Total Square (Area) (cm) 4.00 3.40 -Tunneling No No -Undermining/Tunneling No No -Circular Undermining No No -Wound/Ulcer Outcome Not Healed Not Healed -Ulcer Cleansing Rinsed/ Rinsed/ Irrigated with Irrigated with Saline Saline -Foul Odor after Cleansing No No -Bioengineered Tissue No No -Bleeding Controlled with Pressure Pressure -Treatment Response Procedure Procedure Tolerated Well Tolerated Well -Offloading Yes Yes -Type of Offloading Surgical Shoe Surgical Shoe -Debridement - Subq, 1st 20sq cm No No #5- L GR TOE -Time 10:19 10:18 -Correct Patient Yes Yes -Correct Side, Site, Position Yes Yes -Correct Procedure Yes Yes -Procedure Performed Yes Yes -Type of Procedure Debridement Debridement -Clinical Debridement Subcutaneous Subcutaneous -Tissue Removed Subcutaneous Subcutaneous -Post Debridement (cm) - Length 1.1 0.2 -Post Debridement (cm) - Width 0.5 0.2 -Post Debridement (cm) - Depth 0.1 0.1 -Total Square (Post) (cm) 0.55 0.04 -Area of Debridement (cm) - Length 1.1 0.2 -Area of Debridement (cm) - Width 0.5 0.2 -Total Square (Area) (cm) 0.55 0.04 -Tunneling No No -Undermining/Tunneling No No -Circular Undermining No No -Wound/Ulcer Outcome Not Healed Not Healed -Ulcer Cleansing Rinsed/ Rinsed/ Irrigated with Irrigated with Saline Saline -Foul Odor after Cleansing No No -Bioengineered Tissue No No -Bleeding Controlled with Pressure Pressure -Treatment Response Procedure Procedure Tolerated Well Tolerated Well -Offloading Yes Yes -Type of Offloading Surgical Shoe Surgical Shoe -Debridement - Subq, 20sq cm No No #4- R HALLUX -Time 10:20 10:18 -Correct Patient Yes Yes -Correct Side, Site, Position Yes Yes -Correct Procedure Yes Yes -Procedure Performed Yes Yes -Type of Procedure Debridement Debridement -Clinical Debridement Subcutaneous Subcutaneous -Tissue Removed Subcutaneous Subcutaneous -Post Debridement (cm) - Length 0.4 0.2 -Post Debridement (cm) - Width 0.4 0.2 -Post Debridement (cm) - Depth 0.1 0.1 -Total Square (Post) (cm) 0.16 0.04 -Area of Debridement (cm) - Length 0.4 0.2 -Area of Debridement (cm) - Width 0.4 0.2 -Total Square (Area) (cm) 0.16 0.04 -Tunneling No No -Undermining/Tunneling No -Circular Undermining No No -Wound/Ulcer Outcome Not Healed Not Healed -Ulcer Cleansing Rinsed/ Rinsed/ Irrigated with Irrigated with Saline Saline -Foul Odor after Cleansing No No -Bioengineered Tissue No No -Bleeding Controlled with Pressure Pressure -Treatment Response Procedure Procedure Tolerated Well Tolerated Well -Offloading No Yes -Type of Offloading Surgical Shoe -Debridement - Subq, 20sq cm No Yes #3- R PLANTAR FOOT -Time 10:22 10:19 -Correct Patient Yes Yes -Correct Side, Site, Position Yes Yes -Correct Procedure Yes Yes -Procedure Performed Yes Yes -Type of Procedure Debridement Debridement -Clinical Debridement Subcutaneous Subcutaneous -Tissue Removed Subcutaneous Subcutaneous -Post Debridement (cm) - Length 0.3 0.9 -Post Debridement (cm) - Width 0.5 0.9 -Post Debridement (cm) - Depth 0.2 0.1 -Total Square (Post) (cm) 0.15 0.81 -Area of Debridement (cm) - Length 0.3 0.9 -Area of Debridement (cm) - Width 0.5 0.9 -Total Square (Area) (cm) 0.15 0.81 -Tunneling No No -Undermining/Tunneling No No -Circular Undermining No No -Wound/Ulcer Outcome Not Healed Not Healed -Ulcer Cleansing Rinsed/ Rinsed/ Irrigated with Irrigated with Saline Saline -Foul Odor after Cleansing No No -Bioengineered Tissue No No -Bleeding Controlled with Pressure Pressure -Treatment Response Procedure Procedure Tolerated Well Tolerated Well -Offloading No No -Debridement - Subq, 1st 20sq cm Yes No Pain Scale: 0-10 Numeric Is Patient Pain Free? Yes Yes WC - Nurse 3 - General Ulcer D/C NN Start: 01/16/22 10:16 Freq: Status: Active Protocol: Activity Type Activity Date Activity User E-Sign Co-Sign Detail Recorded Client Recorded Date Recorded By Document 01/16/22 10:34 MW [id number] 01/16/22 10:37 MW Document 01/23/22 10:33 KR [id number] 01/23/22 10:34 KR 01/16/22 01/23/22 10:34 10:33 Wound Care Nurse 3 #8- L 4TH TOE -Ulcer Cleansing Rinsed/ Rinsed/ Irrigated with Irrigated with Saline Saline -Foul Odor after Cleansing No -Negative Pressure Wound Therapy N/A -Primary Dressing Applied Aquacel AG 4x4 Aquacel AG 4x4 -Primary Dressing Covered/Secured with Dry Gauze & Dry Gauze, Roll Gauze, Secured with Secured with Tape Tape -Aquacel AG 4x4 1 1 #7- L 3RD TOE -Ulcer Cleansing Rinsed/ Irrigated with Saline -Foul Odor after Cleansing No -Negative Pressure Wound Therapy N/A -Other Dressing aquacel ag -Primary Dressing Covered/Secured with Dry Gauze, Secured with Tape #6 L 2ND TOE -Ulcer Cleansing Rinsed/ Irrigated with Saline -Foul Odor after Cleansing No -Negative Pressure Wound Therapy N/A -Other Dressing aquacel ag -Primary Dressing Covered/Secured with Dry Gauze & Dry Gauze, Roll Gauze, Secured with Secured with Tape Tape #5- L GR TOE -Ulcer Cleansing Rinsed/ Irrigated with Saline -Foul Odor after Cleansing No -Negative Pressure Wound Therapy N/A -Other Dressing Aquacel AG -Primary Dressing Covered/Secured with Dry Gauze & Dry Gauze, Roll Gauze, Secured with Secured with Tape Tape #4- R HALLUX -Ulcer Cleansing Rinsed/ Irrigated with Saline -Foul Odor after Cleansing No -Negative Pressure Wound Therapy N/A -Other Dressing Aquacel AG -Primary Dressing Covered/Secured with Dry Gauze, Dry Gauze, Secured with Secured with Tape Tape #3- R PLANTAR FOOT -Ulcer Cleansing Rinsed/ Rinsed/ Irrigated with Irrigated with Saline Saline -Foul Odor after Cleansing No -Negative Pressure Wound Therapy N/A -Primary Dressing Applied Promogran Sarbjit Matter -Other Dressing sarbjit -Primary Dressing Covered/Secured with Dry Gauze & Dry Gauze, Roll Gauze, Secured with Secured with Tape Tape -Promogran Sarbjit Matter 1 Treatment Response Procedure Tolerated Well Pain Scale: 0-10 Numeric Is Patient Pain Free? Yes Yes Teaching: Wound Center Dressing Your Wound -Person Taught Patient -Teaching Method Discussion, Demonstration -Response to teaching Verbalize understanding WC - Visit Discharge Discharge Condition Stable Stable Ambulatory Status Ambulatory Ambulatory Transportation Private Auto Private Auto Accompanied by self Medication Reconcilliation completed & No provided to patient/care provider Clinical Summary of Care Provided Yes Assessment/Plan Assessment/Plan (1) 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 exposed: CODE(S): L97.522 - 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 exposed (2) Non-pressure chronic ulcer of other part of right foot with fat layer exposed: CODE(S): L97.512 - Non-pressure chronic ulcer of other part of right foot with fat layer exposed PLAN: Patient examined evaluated, all findings cussed patient in detail. No signs of infection, no oral antibiotics indicated at this time. All right foot wounds healed. Left hallux wound healed. Left second and fourth digital wounds improving well. Will consider nutritional supplementation, patient is seeing diabetes education due to elevated A1c with history of renal transplant. We will plan to offload the left foot with an open toed surgical shoe offloading the digital wounds. We will proceed with more aggressive offloading on the right side once the left toe wounds are healed. Patient is awaiting noninvasive vascular studies to evaluate his arterial flow Bilateral foot wounds were excisionally debrided down to including level subcutaneous tissue of all nonviable tissue using a 15 blade and pickups. No anesthesia required due to neuropathy, hemostasis obtained with light compression. Patient tolerated procedure well. Pre and postdebridement measurements document nursing notes. An 18 mm epi fix graft 3 billing units was applied to the left second digit wound no waste the entire graft was used. Graft was stabilized with overlying wound veil and quarter inch Steri-Strips. Overlying dry sterile dressing was applied. The left side was dressed with Aquacel Ag and Betadine to the interdigital spaces. Right foot wound was dressed with Sarbjit and DSD. We will plan for at the fix graft if the wound is not healed on follow-up. Patient is seeing vascular surgery; however, his wounds are healing well with local wound care. Follow-up in 1 week for continued management. (3) Type 2 diabetes mellitus with diabetic polyneuropathy: CODE(S): E11.42 - Type 2 diabetes mellitus with diabetic polyneuropathy QUALIFIERS: Diabetes mellitus adjunct faculty for medical terminology insulin use: unspecified intermediate insulin use status Qualified Code(s): E11.42 - Type 2 diabetes mellitus with diabetic polyneuropathy
== END 2022-02-06 23:59 ==
LOC: WC 09:45
PROVIDERS: PCP Internal Medicine; Referring Provider Podiatrist; Visit Provider Podiatrist
CPT/HCPCS: 11042; 15275; 93923; Q4186

== ENCOUNTER 2022-03-06 10:15 | Outpatient (RCR) | payer MEDICARE, MEDICAID, SELFPAY ==
[2022-02-07 01:03] VITALS: BP 152/81; PULSE 87; RESP 16; TEMP 36.6; BMI 34.2
[2022-02-13 10:02] VITALS: BP 116/63; PULSE 85; TEMP 35.5; BMI 34.2
--- NOTE | 2022-02-13 10:22 | PCM.WC.PN ---
History of Present Illness Date of Service: 02/13/22 Chief Complaint: Right leg wound History of Wound: 46-year-old male with diabetic neuropathy returns to clinic today to follow-up for right ulcer with MRSA cellulitis infection. He denies drainage and thing his wound has healed. He denies pain or other illness. He has been compliant. Patient denies any constitutional symptoms at his appointment today. Patient has a recent A1c greater than 8. Patient has a 1-year-old kidney transplant. He has been compliant with treatment at this time. Patient noted some diarrhea with the antibiotics he is taking. Denies any constitutional symptoms or new complaints at this time. Objective Data Objective Data Vital Signs: Vital Signs Temp Pulse Resp BP 95.9 F L 85 16 116/63 02/13/22 10:02 02/13/22 10:02 02/07/22 01:03 02/13/22 10:02 Weight: 102.058 kg Body Mass Index (BMI) 34.2 Physical Exam Narrative Patient is alert oriented to person, place and time. Patient ambulates in surgical shoe on the left. And diabetic shoe on the right. Vascular: There are atrophic changes of the skin such as thinning shiny taut appearance absent digital hair growth. Pulses are grossly palpable 2 out of 4 dorsalis pedis and posterior tibial bilateral feet. Mild +1 pitting edema to bilateral lower extremity. Neurologic: Light touch protective sensation completely absent to bilateral lower extremity. Dermatologic: Healed right hallux ulceration. Full-thickness ulceration noted to plantar midfoot - healed. No acute signs of infection. Full-thickness ulcerations noted to the dorsal lateral aspect of the second and fourth digit on the left foot with significant periwound hyperkeratosis and dry stable eschar Postdebridement the wounds demonstrate clean granular bases with clean skin edges. Moderate serous drainage noted. No other signs of infection. Resolved signs of infection. Musculoskeletal: No gross wound forming deformity. Muscular strength full to bilateral lower extremity compartments. No crepitus or pain noted to the wound or periwound areas. Debridement Note Debridement Note Post-Debridement Measurements and Additional Note: Post-Debridement Measurements/Treatment OSWALD - Nurse 1 - General Ulcer Assessment Start: 02/13/22 10:01 Freq: Status: Active Protocol: TOREYEXT Activity Type Activity Date Activity User E-Sign Co-Sign Detail Recorded Client Recorded Date Recorded By Document 02/13/22 10:02 KELLIE [id number] 02/13/22 10:08 SC 02/13/22 10:02 WC - Today's Visit Information Type of service Follow-up Visit (Physician/INDUSTRIAL [employer]ILER[employer]KER ) Arrival Mode Ambulatory Patient Identification Verified (Name & Yes ) Patient Requires Transmission-Based No Precautions Safety Precautions NA Height and Weight Body Mass Index (BMI) 34.2 BMI Classification Obese Vital Signs Temperature (97.8 F-99.1 F) 95.9 F L Temperature Source Temporal Pulse Rate (60-100) 85 Pulse Location Monitor Blood Pressure (90/60-120/80) 116/63 Blood Pressure Mean (mm Hg) 80 Source Monitor History Since Last Visit- (Skip if this is Patient's initial visit) Have you changed medications since your No last visit? Any new allergies or adverse reactions No Had a fall/change in ADL's that may No increase risk of falls Signs or symptoms of abuse and/or No neglect since last visit Have you been in the hospital since your No last visit? Has dressing in place as prescribed Yes Has compression in place as prescribed N/A Has offloadiing in place as prescribed Yes Experienced any changes in pain level or No management Left Footwear Surgical Shoe with pressure relief insole Right Footwear Regular Shoe Pain Scale: 0-10 Numeric Is Patient Pain Free? Yes - Nurse 1 - General Ulcer Measurement Start: 02/13/22 10:01 Freq: Status: Active Protocol: Activity Type Activity Date Activity User E-Sign Co-Sign Detail Recorded Client Recorded Date Recorded By Document 02/13/22 10:02 KELLIE [id number] 02/13/22 10:08 KELLIE 02/13/22 10:02 Wound Center Nurse 1 #8- L 4TH TOE -Combined with other wound No -Current Size (cm) - Length 0.8 -Current Size (cm) - Width 0.6 -Current Size (cm) - Depth 0.1 -Total Square Cm 0.48 -Epithelialization None Present -Tunneling No -Undermining/Tunneling No -Circular Undermining No -Change in Wound Grade/Stage No -Exudate Amt Small -Exudate Type Serosanguineous -Wound Margin Distinct, Outline Attached -Granulation Amt Small (1-33%) -Granulation Quality [place] -Slough/Fibrin Yes -Necrosis Amt Medium (34-66%) -Necrotic Tissue Type Adherent Slough -Structure Exposed N/A -Texture ([place]-wound Skin Appearance) Assessed,Callus ,Crepitus -Moisture ([place]-wound Skin Appearance) Assessed,Dry/ Scaly -Color ([place]-wound Skin Appearance) No Abnormality, Assessed -Temperature ([place]-wound Skin No Abnormality Appearance) (Pt Warm) -Tenderness on Palpation ([place]-wound No Skin Appearance) -Ulcer Cleansing Rinsed/ Irrigated with Saline -Foul Odor after Cleansing No -Anesthetic Used 4% Lidocaine Solution #6 L 2ND TOE -Combined with other wound No -Current Size (cm) - Length 0.5 -Current Size (cm) - Width 0.5 -Current Size (cm) - Depth 0.1 -Total Square Cm 0.25 -Photo Taken No -Epithelialization Small 1-33% -Tunneling No -Undermining/Tunneling No -Circular Undermining No -Change in Wound Grade/Stage No -Exudate Amt Small -Exudate Type Serosanguineous -Wound Margin Distinct, Outline Attached -Granulation Amt Small (1-33%) -Granulation Quality N/A,[place] -Necrosis Amt Small (1-33%) -Necrotic Tissue Type Adherent Slough -Structure Exposed N/A -Texture ([place]-wound Skin Appearance) Assessed, Crepitus -Moisture ([place]-wound Skin Appearance) Assessed,Dry/ Scaly -Color ([place]-wound Skin Appearance) No Abnormality, Assessed -Temperature ([place]-wound Skin No Abnormality Appearance) (Pt Warm) -Tenderness on Palpation ([place]-wound No Skin Appearance) -Ulcer Cleansing Rinsed/ Irrigated with Saline -Foul Odor after Cleansing No -Anesthetic Used 4% Lidocaine Solution Assessment/Plan Assessment/Plan (1) Type 2 diabetes mellitus with diabetic polyneuropathy: CODE(S): E11.42 - Type 2 diabetes mellitus with diabetic polyneuropathy QUALIFIERS: Diabetes mellitus exterminator helper termite insulin use: unspecified fpc insulin use status Qualified Code(s): E11.42 - Type 2 diabetes mellitus with diabetic polyneuropathy (2) 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 exposed: CODE(S): L97.522 - 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 exposed PLAN: Patient examined evaluated, all findings discussed patient in detail. No signs of infection, no oral antibiotics indicated at this time. All right foot wounds healed. Left hallux wound healed. Left second and fourth digital wounds improving well. Will consider nutritional supplementation, patient is seeing diabetes education due to elevated A1c with history of renal transplant. We will plan to offload the left foot with an open toed surgical shoe offloading the digital wounds. left foot wounds x2 2nd toe and 4th toe were excisionally debrided down to including level subcutaneous tissue of all nonviable tissue using a 15 blade and pickups. No anesthesia required due to neuropathy, hemostasis obtained with light compression. Patient tolerated procedure well. Pre and postdebridement measurements document nursing notes. his wounds are healing well with local wound care. Follow-up in 1 week for continued management. (3) Other specified peripheral vascular diseases: CODE(S): I73.89 - Other specified peripheral vascular diseases
[2022-02-27 10:26] VITALS: BP 128/70; PULSE 84; TEMP 35.6; BMI 34.2
--- NOTE | 2022-02-27 10:46 | PN.PCM_ITS ---
History of Present Illness Date of Service: 02/27/22 Chief Complaint: Right leg wound History of Wound: 46-year-old male with diabetic neuropathy returns to clinic today to follow-up for right ulcer with MRSA cellulitis infection. He denies drainage and thing his wound has healed. He denies pain or other illness. He has been compliant. Patient denies any constitutional symptoms at his appointment today. Patient has a recent A1c greater than 8. Patient has a 1-year-old kidney transplant. He has been compliant with treatment at this time. Patient noted some diarrhea with the antibiotics he is taking. Denies any constitutional symptoms or new complaints at this time. Objective Data Objective Data Vital Signs: Vital Signs Temp Pulse Resp BP 96.1 F L 84 16 128/70 H 02/27/22 10:26 02/27/22 10:26 02/07/22 01:03 02/27/22 10:26 Weight: 102.058 kg Body Mass Index (BMI) 34.2 Physical Exam Narrative Patient is alert oriented to person, place and time. Patient ambulates in surgical shoe on the left. And diabetic shoe on the right. Vascular: There are atrophic changes of the skin such as thinning shiny taut appearance absent digital hair growth. Pulses are grossly palpable 2 out of 4 dorsalis pedis and posterior tibial bilateral feet. Mild +1 pitting edema to bilateral lower extremity. Neurologic: Light touch protective sensation completely absent to bilateral lower extremity. Dermatologic: Healed right hallux ulceration. Full-thickness ulceration noted to plantar midfoot - healed. No acute signs of infection. Full-thickness ulcerations noted to the dorsal lateral aspect of the second and fourth digit on the left foot with significant periwound hyperkeratosis and dry stable eschar Postdebridement the wounds demonstrate clean granular bases with clean skin edges. Moderate serous drainage noted. No other signs of infection. Resolved signs of infection. Musculoskeletal: No gross wound forming deformity. Muscular strength full to bilateral lower extremity compartments. No crepitus or pain noted to the wound or periwound areas. Debridement Note Debridement Note Post-Debridement Measurements and Additional Note: Post-Debridement Measurements/Treatment OSWALD - Nurse 1 - General Ulcer Assessment Start: 02/13/22 10:01 Freq: Status: Active Protocol: TOREYEXT Activity Type Activity Date Activity User E-sign Co-sign Detail Recorded Client Recorded Date Recorded By Document 02/13/22 10:02 KELLIE [id number] 02/13/22 10:08 AK Document 02/27/22 10:26 AK [id number] 02/27/22 10:31 AK 02/13/22 02/27/22 10:02 10:26 - Today's Visit Information Type of service Follow-up Visit Follow-up Visit (Physician/MRI CT TECH (Physician/MRI CT TECH ) ) Arrival Mode Ambulatory Ambulatory Patient Identification Verified (Name & Yes Yes ) Patient Requires Transmission-Based No No Precautions Safety Precautions NA NA Height and Weight Body Mass Index (BMI) 34.2 34.2 BMI Classification Obese Obese Vital Signs Temperature (97.8 F-99.1 F) 95.9 F L 96.1 F L Temperature Source Temporal Temporal Pulse Rate (60-100) 85 84 Pulse Location Monitor Monitor Blood Pressure (90/60-120/80) 116/63 128/70 H Blood Pressure Mean (mm Hg) 80 89 Source Monitor Monitor History Since Last Visit- (Skip if this is Patient's initial visit) Have you changed medications since your No No last visit? Any new allergies or adverse reactions No No Had a fall/change in ADL's that may No No increase risk of falls Signs or symptoms of abuse and/or No No neglect since last visit Have you been in the hospital since your No No last visit? Has dressing in place as prescribed Yes Yes Has compression in place as prescribed N/A N/A Has offloadiing in place as prescribed Yes N/A Experienced any changes in pain level or No No management Left Footwear Surgical Shoe Surgical Shoe with pressure with pressure relief insole relief insole Right Footwear Regular Shoe Regular Shoe Pain Scale: 0-10 Numeric Is Patient Pain Free? Yes Yes - Nurse 1 - General Ulcer Measurement Start: 02/13/22 10:01 Freq: Status: Active Protocol: Activity Type Activity Date Activity User E-sign Co-sign Detail Recorded Client Recorded Date Recorded By Document 02/13/22 10:02 KELLIE [id number] 02/13/22 10:08 AK Document 02/27/22 10:26 KELLIE [id number] 02/27/22 10:31 AK 02/13/22 02/27/22 10:02 10:26 Wound Center Nurse 1 #8- L 4TH TOE -Combined with other wound No No -Current Size (cm) - Length 0.8 0.1 -Current Size (cm) - Width 0.6 0.1 -Current Size (cm) - Depth 0.1 0.1 -Total Square Cm 0.48 0.01 -Date of Last Picture (Recall this 02/27/22 field) -Photo Taken Yes -Epithelialization None Present None Present -Tunneling No No -Undermining/Tunneling No No -Circular Undermining No No -Change in Wound Grade/Stage No -Exudate Amt Small None Present -Exudate Type Serosanguineous Serosanguineous -Wound Margin Distinct, Outline Attached -Granulation Amt Small (1-33%) -Granulation Quality [place] N/A -Slough/Fibrin Yes No -Necrosis Amt Medium (34-66%) None Present (0 %) -Necrotic Tissue Type Adherent Slough -Structure Exposed N/A N/A -Texture ([place]-wound Skin Appearance) Assessed,Callus Assessed,Callus ,Crepitus -Moisture ([place]-wound Skin Appearance) Assessed,Dry/ Assessed,Dry/ Scaly Scaly -Color ([place]-wound Skin Appearance) No Abnormality, No Abnormality, Assessed Assessed -Temperature ([place]-wound Skin No Abnormality No Abnormality Appearance) (Pt Warm) (Pt Warm) -Tenderness on Palpation ([place]-wound No No Skin Appearance) -Ulcer Cleansing Rinsed/ Rinsed/ Irrigated with Irrigated with Saline Saline -Foul Odor after Cleansing No No -Anesthetic Used 4% Lidocaine 5% Lidocaine Solution Gel #6 L 2ND TOE -Combined with other wound No No -Current Size (cm) - Length 0.5 0.2 -Current Size (cm) - Width 0.5 0.2 -Current Size (cm) - Depth 0.1 0.1 -Total Square Cm 0.25 0.04 -Date of Last Picture (Recall this 02/27/22 field) -Photo Taken No Yes -Epithelialization Small 1-33% -Tunneling No No -Undermining/Tunneling No No -Circular Undermining No No -Change in Wound Grade/Stage No No -Exudate Amt Small Medium -Exudate Type Serosanguineous Serosanguineous -Wound Margin Distinct, Distinct, Outline Outline Attached Attached -Granulation Amt Small (1-33%) None Present (0 %) -Granulation Quality N/A,[place] N/A -Slough/Fibrin Yes -Necrosis Amt Small (1-33%) Small (1-33%) -Necrotic Tissue Type Adherent Slough Adherent Slough -Structure Exposed N/A N/A -Texture ([place]-wound Skin Appearance) Assessed, Assessed,Callus Crepitus ,Friable -Moisture ([place]-wound Skin Appearance) Assessed,Dry/ Assessed,Dry/ Scaly Scaly -Color ([place]-wound Skin Appearance) No Abnormality, No Abnormality, Assessed Assessed -Temperature ([place]-wound Skin No Abnormality No Abnormality Appearance) (Pt Warm) (Pt Warm) -Tenderness on Palpation ([place]-wound No No Skin Appearance) -Ulcer Cleansing Rinsed/ Rinsed/ Irrigated with Irrigated with Saline Saline -Foul Odor after Cleansing No No -Anesthetic Used 4% Lidocaine 5% Lidocaine Solution Gel WC - Nurse 2 - General Ulcer CM Notes Start: 02/13/22 10:01 Freq: Status: Active Protocol: Activity Type Activity Date Activity User E-sign Co-sign Detail Recorded Client Recorded Date Recorded By Document 02/13/22 10:18 [id number] 02/13/22 10:25 Document 02/27/22 10:42 [id number] 02/27/22 10:46 02/13/22 02/27/22 10:18 10:42 Wound Center Nurse 2 #8- L 4TH TOE -Time 10:19 10:43 -Correct Patient Yes Yes -Correct Side, Site, Position Yes Yes -Correct Procedure Yes Yes -Procedure Performed Yes Yes -Type of Procedure Debridement Debridement -Clinical Debridement Subcutaneous Subcutaneous -Tissue Removed Subcutaneous Subcutaneous -Post Debridement (cm) - Length 1.3 0.1 -Post Debridement (cm) - Width 0.4 0.1 -Post Debridement (cm) - Depth 0.1 0.1 -Total Square (Post) (cm) 0.52 0.01 -Area of Debridement (cm) - Length 1.3 0.1 -Area of Debridement (cm) - Width 0.4 0.1 -Total Square (Area) (cm) 0.52 0.01 -Tunneling No No -Undermining/Tunneling No No -Circular Undermining No No -Wound/Ulcer Outcome Not Healed Not Healed -Ulcer Cleansing Rinsed/ Rinsed/ Irrigated with Irrigated with Saline Saline -Foul Odor after Cleansing No No -Bioengineered Tissue No No -Bleeding Controlled with Pressure Pressure -Treatment Response Procedure Procedure Tolerated Well Tolerated Well -Offloading Yes Yes -Type of Offloading Surgical Shoe Surgical Shoe -Debridement - Subq, 1st 20sq cm Yes No #6 L 2ND TOE -Time 10:19 10:44 -Correct Patient Yes Yes -Correct Side, Site, Position Yes Yes -Correct Procedure Yes Yes -Procedure Performed Yes Yes -Type of Procedure Debridement Debridement -Clinical Debridement Subcutaneous Subcutaneous -Tissue Removed Subcutaneous Subcutaneous -Post Debridement (cm) - Length 0.3 1.5 -Post Debridement (cm) - Width 0.4 0.8 -Post Debridement (cm) - Depth 0.1 0.1 -Total Square (Post) (cm) 0.12 1.20 -Area of Debridement (cm) - Length 0.3 1.5 -Area of Debridement (cm) - Width 0.4 0.8 -Total Square (Area) (cm) 0.12 1.20 -Tunneling No No -Undermining/Tunneling No No -Circular Undermining No No -Wound/Ulcer Outcome Not Healed Not Healed -Ulcer Cleansing Rinsed/ Rinsed/ Irrigated with Irrigated with Saline Saline -Foul Odor after Cleansing No No -Bioengineered Tissue No No -Bleeding Controlled with Pressure Pressure -Treatment Response Procedure Procedure Tolerated Well Tolerated Well -Offloading Yes Yes -Type of Offloading Surgical Shoe Surgical Shoe -Debridement - Subq, 1st 20sq cm No Yes Pain Scale: 0-10 Numeric Is Patient Pain Free? Yes Yes WC - Nurse 3 - General Ulcer D/C NN Start: 02/13/22 10:01 Freq: Status: Active Protocol: Activity Type Activity Date Activity User E-sign Co-sign Detail Recorded Client Recorded Date Recorded By Document 02/13/22 10:30 MW [id number] 02/13/22 10:31 MW Edit Result 02/13/22 10:30 MW (1) [id number] 02/13/22 11:32 MW (1) #8- L 4TH TOE - Primary Dressing Applied => C Hydrogel ($) 02/13/22 10:30 Wound Care Nurse 3 #8- L 4TH TOE -Ulcer Cleansing Rinsed/ Irrigated with Saline -Foul Odor after Cleansing No -Negative Pressure Wound Therapy N/A -Primary Dressing Applied C Hydrogel ($) -Other Dressing C.hydrogel -Primary Dressing Covered/Secured with Dry Gauze & Roll Gauze, Secured with Tape #6 L 2ND TOE -Ulcer Cleansing Rinsed/ Irrigated with Saline -Foul Odor after Cleansing No -Negative Pressure Wound Therapy N/A -Other Dressing c.hydrogel -Primary Dressing Covered/Secured with Dry Gauze & Roll Gauze, Secured with Tape Left -Lotion applied to leg before No compression wrap -Tubular Bandage Single Layer -Size of Tubigrip Used Size D -Size D ($) 1 Treatment Response Procedure Tolerated Well Pain Scale: 0-10 Numeric Is Patient Pain Free? Yes WC - Visit Discharge Discharge Condition Stable Ambulatory Status Ambulatory Transportation Private Auto Accompanied by self Medication Reconcilliation completed & No provided to patient/care provider Clinical Summary of Care Provided Yes Assessment/Plan Assessment/Plan (1) Type 2 diabetes mellitus with diabetic polyneuropathy: CODE(S): E11.42 - Type 2 diabetes mellitus with diabetic polyneuropathy QUALIFIERS: Diabetes mellitus intermediate designer insulin use: unspecified intermediate designer insulin use status Qualified Code(s): E11.42 - Type 2 diabetes mellitus with diabetic polyneuropathy (2) 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 exposed: CODE(S): L97.522 - 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 exposed PLAN: Patient examined evaluated, all findings discussed patient in detail. No signs of infection, no oral antibiotics indicated at this time. All right foot wounds healed. Left hallux wound healed. Left second and fourth digital wounds improving well. Will consider nutritional supplementation, patient is seeing diabetes education due to elevated A1c with history of renal transplant. We will plan to offload the left foot with an open toed surgical shoe offloading the digital wounds. left foot wounds x2 2nd toe and 4th toe were excisionally debrided down to including level subcutaneous tissue of all nonviable tissue using a 15 blade and pickups. No anesthesia required due to neuropathy, hemostasis obtained with light compression. Patient tolerated procedure well. Pre and postdebridement measurements document nursing notes. his wounds are healing well with local wound care. Patient has offloading left foot with surgical shoe he will continue to do this. Once his wounds are healed we will transition him into diabetic shoe gear. Follow-up in 1 week for continued management. (3) Other specified peripheral vascular diseases: CODE(S): I73.89 - Other specified peripheral vascular diseases
[2022-03-06 10:13] VITALS: BP 138/83; PULSE 83; TEMP 36.1; BMI 34.2
--- NOTE | 2022-03-06 10:25 | PN.PCM_ITS ---
History of Present Illness Date of Service: 03/06/22 Chief Complaint: Right leg wound History of Wound: 46-year-old male with diabetic neuropathy returns to clinic today to follow-up for a left foot ulcer. He denies any changes at this time. He denies pain or other illness. He has been compliant. Patient denies any constitutional symptoms at his appointment today. Patient has a recent A1c greater than 8. Patient has a 1-year-old kidney transplant. He has been compliant with treatment at this time. Patient noted some diarrhea with the antibiotics he is taking. Denies any constitutional symptoms or new complaints at this time. Objective Data Objective Data Vital Signs: Vital Signs Temp Pulse Resp BP 96.9 F L 83 16 138/83 H 03/06/22 10:13 03/06/22 10:13 02/07/22 01:03 03/06/22 10:13 Weight: 102.058 kg Body Mass Index (BMI) 34.2 Physical Exam Narrative Patient is alert oriented to person, place and time. Patient ambulates in surgical shoe on the left. And diabetic shoe on the right. Vascular: There are atrophic changes of the skin such as thinning shiny taut appearance absent digital hair growth. Pulses are grossly palpable 2 out of 4 dorsalis pedis and posterior tibial bilateral feet. Mild +1 pitting edema to bilateral lower extremity. Neurologic: Light touch protective sensation completely absent to bilateral lower extremity. Dermatologic: Healed right hallux ulceration. Full-thickness ulceration noted to plantar midfoot - healed. No acute signs of infection. Left fourth toe wound healed. Full-thickness ulcerations noted to the dorsal lateral aspect of the second digit on the left foot with significant periwound hyperkeratosis and dry stable eschar Postdebridement the wounds demonstrate clean granular bases with clean skin edges. Moderate serous drainage noted. No other signs of infection. Resolved signs of infection. Musculoskeletal: No gross wound forming deformity. Muscular strength full to bilateral lower extremity compartments. No crepitus or pain noted to the wound or periwound areas. Debridement Note Debridement Note Post-Debridement Measurements and Additional Note: Post-Debridement Measurements/Treatment OSWALD - Nurse 1 - General Ulcer Assessment Start: 02/13/22 10:01 Freq: Status: Active Protocol: TOREYEXT Activity Type Activity Date Activity User E-sign Co-sign Detail Recorded Client Recorded Date Recorded By Document 02/13/22 10:02 KELLIE [id number] 02/13/22 10:08 AK Document 02/27/22 10:26 KELLIE [id number] 02/27/22 10:31 AK Document 03/06/22 10:13 KELLIE [id number] 03/06/22 10:15 KELLIE 02/13/22 02/27/22 03/06/22 10:02 10:26 10:13 WC - Today's Visit Information Type of service Follow-up Visit Follow-up Visit Follow-up Visit (Physician/ORCHID TRANSPLANTER (Physician/ORCHID TRANSPLANTER (Physician/ORCHID TRANSPLANTER ) ) ) Arrival Mode Ambulatory Ambulatory Ambulatory Patient Identification Verified (Name & Yes Yes Yes ) Patient Requires Transmission-Based No No No Precautions Safety Precautions NA NA NA Height and Weight Body Mass Index (BMI) 34.2 34.2 34.2 BMI Classification Obese Obese Obese Vital Signs Temperature (97.8 F-99.1 F) 95.9 F L 96.1 F L 96.9 F L Temperature Source Temporal Temporal Temporal Pulse Rate (60-100) 85 84 83 Pulse Location Monitor Monitor Monitor Blood Pressure (90/60-120/80) 116/63 128/70 H 138/83 H Blood Pressure Mean (mm Hg) 80 89 101 Source Monitor Monitor Monitor History Since Last Visit- (Skip if this is Patient's initial visit) Have you changed medications since your No No No last visit? Any new allergies or adverse reactions No No No Had a fall/change in ADL's that may No No No increase risk of falls Signs or symptoms of abuse and/or No No No neglect since last visit Have you been in the hospital since your No No No last visit? Has dressing in place as prescribed Yes Yes No Has compression in place as prescribed N/A N/A N/A Has offloadiing in place as prescribed Yes N/A N/A Experienced any changes in pain level or No No No management Left Footwear Surgical Shoe Surgical Shoe Regular Shoe with pressure with pressure relief insole relief insole Right Footwear Regular Shoe Regular Shoe Regular Shoe Pain Scale: 0-10 Numeric Is Patient Pain Free? Yes Yes Yes - Nurse 1 - General Ulcer Measurement Start: 02/13/22 10:01 Freq: Status: Active Protocol: Activity Type Activity Date Activity User E-sign Co-sign Detail Recorded Client Recorded Date Recorded By Document 02/13/22 10:02 AK [id number] 02/13/22 10:08 AK Document 02/27/22 10:26 AK [id number] 02/27/22 10:31 AK Document 03/06/22 10:13 AK [id number] 03/06/22 10:15 AK 02/13/22 02/27/22 03/06/22 10:02 10:26 10:13 Wound Center Nurse 1 #8- L 4TH TOE -Combined with other wound No No No -Current Size (cm) - Length 0.8 0.1 -Current Size (cm) - Width 0.6 0.1 -Current Size (cm) - Depth 0.1 0.1 -Total Square Cm 0.48 0.01 -Date of Last Picture (Recall this 02/27/22 field) -Photo Taken Yes No -Epithelialization None Present None Present -Tunneling No No No -Undermining/Tunneling No No No -Circular Undermining No No No -Change in Wound Grade/Stage No No -Exudate Amt Small None Present None Present -Exudate Type Serosanguineous Serosanguineous -Wound Margin Distinct, Outline Attached -Granulation Amt Small (1-33%) -Granulation Quality [place] N/A N/A -Slough/Fibrin Yes No No -Necrosis Amt Medium (34-66%) None Present (0 None Present (0 %) %) -Necrotic Tissue Type Adherent Slough -Structure Exposed N/A N/A N/A -Texture ([place]-wound Skin Appearance) Assessed,Callus Assessed,Callus No Abnormality, ,Crepitus Assessed -Moisture ([place]-wound Skin Appearance) Assessed,Dry/ Assessed,Dry/ No Abnormality, Scaly Scaly Assessed -Color ([place]-wound Skin Appearance) No Abnormality, No Abnormality, No Abnormality, Assessed Assessed Assessed -Temperature ([place]-wound Skin No Abnormality No Abnormality No Abnormality Appearance) (Pt Warm) (Pt Warm) (Pt Warm) -Tenderness on Palpation ([place]-wound No No No Skin Appearance) -Ulcer Cleansing Rinsed/ Rinsed/ Rinsed/ Irrigated with Irrigated with Irrigated with Saline Saline Saline -Foul Odor after Cleansing No No No -Anesthetic Used 4% Lidocaine 5% Lidocaine 4% Lidocaine Solution Gel Solution #6 L 2ND TOE -Combined with other wound No No No -Current Size (cm) - Length 0.5 0.2 -Current Size (cm) - Width 0.5 0.2 -Current Size (cm) - Depth 0.1 0.1 -Total Square Cm 0.25 0.04 -Date of Last Picture (Recall this 02/27/22 field) -Photo Taken No Yes No -Epithelialization Small 1-33% -Tunneling No No No -Undermining/Tunneling No No No -Circular Undermining No No No -Change in Wound Grade/Stage No No No -Exudate Amt Small Medium None Present -Exudate Type Serosanguineous Serosanguineous -Wound Margin Distinct, Distinct, Outline Outline Attached Attached -Granulation Amt Small (1-33%) None Present (0 %) -Granulation Quality N/A,[place] N/A N/A -Slough/Fibrin Yes No -Necrosis Amt Small (1-33%) Small (1-33%) None Present (0 %) -Necrotic Tissue Type Adherent Slough Adherent Slough -Structure Exposed N/A N/A N/A -Texture ([place]-wound Skin Appearance) Assessed, Assessed,Callus No Abnormality, Crepitus ,Friable Assessed -Moisture ([place]-wound Skin Appearance) Assessed,Dry/ Assessed,Dry/ No Abnormality, Scaly Scaly Assessed -Color ([place]-wound Skin Appearance) No Abnormality, No Abnormality, No Abnormality, Assessed Assessed Assessed -Temperature ([place]-wound Skin No Abnormality No Abnormality No Abnormality Appearance) (Pt Warm) (Pt Warm) (Pt Warm) -Tenderness on Palpation ([place]-wound No No No Skin Appearance) -Ulcer Cleansing Rinsed/ Rinsed/ Rinsed/ Irrigated with Irrigated with Irrigated with Saline Saline Saline -Foul Odor after Cleansing No No No -Anesthetic Used 4% Lidocaine 5% Lidocaine 4% Lidocaine Solution Gel Solution Lower Limb Edema Present No Left Calf (cm) 37 Left Ankle (cm) 25.5 WC - Nurse 2 - General Ulcer CM Notes Start: 02/13/22 10:01 Freq: Status: Active Protocol: Activity Type Activity Date Activity User E-sign Co-sign Detail Recorded Client Recorded Date Recorded By Document 02/13/22 10:18 CARLINE [id number] 02/13/22 10:25 JF Document 02/27/22 10:42 [id number] 02/27/22 10:46 JF 02/13/22 02/27/22 10:18 10:42 Wound Center Nurse 2 #8- L 4TH TOE -Time 10:19 10:43 -Correct Patient Yes Yes -Correct Side, Site, Position Yes Yes -Correct Procedure Yes Yes -Procedure Performed Yes Yes -Type of Procedure Debridement Debridement -Clinical Debridement Subcutaneous Subcutaneous -Tissue Removed Subcutaneous Subcutaneous -Post Debridement (cm) - Length 1.3 0.1 -Post Debridement (cm) - Width 0.4 0.1 -Post Debridement (cm) - Depth 0.1 0.1 -Total Square (Post) (cm) 0.52 0.01 -Area of Debridement (cm) - Length 1.3 0.1 -Area of Debridement (cm) - Width 0.4 0.1 -Total Square (Area) (cm) 0.52 0.01 -Tunneling No No -Undermining/Tunneling No No -Circular Undermining No No -Wound/Ulcer Outcome Not Healed Not Healed -Ulcer Cleansing Rinsed/ Rinsed/ Irrigated with Irrigated with Saline Saline -Foul Odor after Cleansing No No -Bioengineered Tissue No No -Bleeding Controlled with Pressure Pressure -Treatment Response Procedure Procedure Tolerated Well Tolerated Well -Offloading Yes Yes -Type of Offloading Surgical Shoe Surgical Shoe -Debridement - Subq, 1st 20sq cm Yes No #6 L 2ND TOE -Time 10:19 10:44 -Correct Patient Yes Yes -Correct Side, Site, Position Yes Yes -Correct Procedure Yes Yes -Procedure Performed Yes Yes -Type of Procedure Debridement Debridement -Clinical Debridement Subcutaneous Subcutaneous -Tissue Removed Subcutaneous Subcutaneous -Post Debridement (cm) - Length 0.3 1.5 -Post Debridement (cm) - Width 0.4 0.8 -Post Debridement (cm) - Depth 0.1 0.1 -Total Square (Post) (cm) 0.12 1.20 -Area of Debridement (cm) - Length 0.3 1.5 -Area of Debridement (cm) - Width 0.4 0.8 -Total Square (Area) (cm) 0.12 1.20 -Tunneling No No -Undermining/Tunneling No No -Circular Undermining No No -Wound/Ulcer Outcome Not Healed Not Healed -Ulcer Cleansing Rinsed/ Rinsed/ Irrigated with Irrigated with Saline Saline -Foul Odor after Cleansing No No -Bioengineered Tissue No No -Bleeding Controlled with Pressure Pressure -Treatment Response Procedure Procedure Tolerated Well Tolerated Well -Offloading Yes Yes -Type of Offloading Surgical Shoe Surgical Shoe -Debridement - Subq, 1st 20sq cm No Yes Pain Scale: 0-10 Numeric Is Patient Pain Free? Yes Yes WC - Nurse 3 - General Ulcer D/C NN Start: 02/13/22 10:01 Freq: Status: Active Protocol: Activity Type Activity Date Activity User E-sign Co-sign Detail Recorded Client Recorded Date Recorded By Document 02/13/22 10:30 MW [id number] 02/13/22 10:31 MW Edit Result 02/13/22 10:30 MW (1) [id number] 02/13/22 11:32 MW Document 02/27/22 10:51 JF [id number] 02/27/22 10:51 JF (1) #8- L 4TH TOE - Primary Dressing Applied => C Hydrogel ($) 02/13/22 02/27/22 10:30 10:51 Wound Care Nurse 3 #8- L 4TH TOE -Ulcer Cleansing Rinsed/ Rinsed/ Irrigated with Irrigated with Saline Saline -Foul Odor after Cleansing No No -Negative Pressure Wound Therapy N/A -Primary Dressing Applied C Hydrogel ($) C Hydrogel ($) -Other Dressing C.hydrogel -Primary Dressing Covered/Secured with Dry Gauze & Dry Gauze & Roll Gauze, Roll Gauze, Secured with Secured with Tape Tape #6 L 2ND TOE -Ulcer Cleansing Rinsed/ Rinsed/ Irrigated with Irrigated with Saline Saline -Foul Odor after Cleansing No No -Negative Pressure Wound Therapy N/A -Primary Dressing Applied C Hydrogel ($) -Other Dressing c.hydrogel -Primary Dressing Covered/Secured with Dry Gauze & Dry Gauze & Roll Gauze, Roll Gauze, Secured with Secured with Tape Tape Left -Lotion applied to leg before No compression wrap -Tubular Bandage Single Layer -Size of Tubigrip Used Size D -Size D ($) 1 Treatment Response Procedure Tolerated Well Pain Scale: 0-10 Numeric Is Patient Pain Free? 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 No signs of infection, no oral antibiotics indicated at this time. All right foot wounds healed. Left hallux wound healed. Left fourth toe wound healed, left second toe wound is the only remaining wound at this time. Will consider nutritional supplementation, patient is seeing diabetes education due to elevated A1c with history of renal transplant. We will plan to offload the left foot with an open toed surgical shoe offloading the digital wounds. left foot wound x1, left 2nd toe were excisionally debrided down to including level subcutaneous tissue of all nonviable tissue using a 15 blade and pickups. No anesthesia required due to neuropathy, hemostasis obtained with light compression. Patient tolerated procedure well. Pre and postdebridement measurements document nursing notes. his wounds are healing well with local wound care. Patient has offloading left foot with surgical shoe he will continue to do this. Once his wounds are healed we will transition him into diabetic shoe gear. Follow-up in 1 week for continued management. (3) Other specified peripheral vascular diseases: CODE(S): I73.89 - Other specified peripheral vascular diseases
== END 2022-03-08 23:59 | disposition home or self-care (01) ==
LOC: WC 10:15
PROVIDERS: PCP Internal Medicine; Referring Provider Podiatrist; Visit Provider Podiatrist
DX: E11.621 Type 2 diabetes mellitus with foot ulcer (principal); L97.522 Non-pressure chronic ulcer of other part of left foot with fat layer exposed; E11.42 Type 2 diabetes mellitus with diabetic polyneuropathy; I73.89 Other specified peripheral vascular diseases; Z79.4 Long term (current) use of insulin
CPT/HCPCS: 11042

== ENCOUNTER 2022-03-24 01:02 | Inpatient (IN) | payer MEDICARE, MEDICAID, SELFPAY ==
[2022-03-24] VITALS (24 sets, daily range): BP systolic 109–180; BP diastolic 55–78; PULSE 78–107; RESP 14–25; TEMP 36.4–37.9; O2SAT 90–100; BMI 36.1; BMI 31.7
--- NOTE | 2022-03-24 01:23 | ED.VIS.LOWEX ---
HPI History of Present Illness Chief Complaint: Wound Detail of Chief Complaint: Wound to left foot Informant: patient Narrative Narrative: Patient presents to the emergency department complaint of a wound to his left foot. Patient states that he was on vacation in [place] and 2 days ago noticed increased pain and redness and swelling. Patient's had some chills but no fever. Patient states that prior to leaving for vacation a week ago he had debridement of a chronic ulcer to the left foot by his pearl cutter at the wound center Dr. Levy. Patient is a diabetic. Patient with history of chronic kidney disease and prior renal transplant. [facility] Medical History (Updated 03/24/22 @ 03:[address] Toni Nelson, DO) Acute hypoxemic respiratory failure Acute on chronic diastolic CHF (congestive heart failure) Acute respiratory failure with hypoxia ILDA (acute kidney injury) Anasarca associated with disorder of kidney Anemia of chronic renal failure, stage 4 (severe) Anxiety and depression Atherosclerotic heart disease of [place] coronary artery without angina pectoris Autonomic neuropathy Blind left eye Cellulitis and abscess of right leg Chewing tobacco nicotine dependence Chronic renal failure, stage 4 (severe) Chronic ulcer of 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 COVID-19 COVID-19 Diabetes mellitus type II, uncontrolled Diabetic nephropathy Diabetic neuropathy Diabetic retinopathy Dyspnea Essential hypertension Fistula (~12/2018) GERD (gastroesophageal reflux disease) History of acute myocardial infarction History of left heart catheterization (LHC) (~06/26/11) HLD (hyperlipidemia) Hypertensive emergency Hypoglycemia Hypokalemia Hypoxemia Kidney failure Kidney stones Noncompliance Obesity (BMI 30-39.9) Pneumonia Problem with dialysis access Pulmonary edema Respiratory failure Retention, urine Right leg pain 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 Vision problems Home Medications aspirin 81 mg chewable tablet 81 mg PO DAILY@0800 heart health 08/21/18 [History Last Taken 10/06/19] insulin lispro 100 unit/mL subcutaneous pen See Protocol SQ ACHS blood sugar 10/06/19 [History Last Taken 10/06/19] insulin glargine 100 unit/mL (3 mL) subcutaneous pen 0 unit subcut QHS blood sugar 08/11/20 [History Last Taken Unknown] atorvastatin 20 mg tablet (Lipitor) 20 mg PO QHS cholesterol 09/18/21 [History Last Taken Unknown] bupropion HCl 150 mg 24 hr tablet, extended release (Wellbutrin XL) 300 mg PO DAILY mood 09/18/21 [History Last Taken Unknown] docusate sodium 100 mg capsule (Colace) 100 mg PO DAILY constipation 09/18/21 [History Last Taken Unknown] mycophenolate mofetil 250 mg capsule (CellCept) 500 mg PO BID rejection med 09/18/21 [History Last Taken Unknown] pantoprazole 20 mg tablet,delayed release (Protonix) 20 mg PO DAILY gerd 09/18/21 [History Last Taken Unknown] prednisone 5 mg tablet 5 mg PO DAILY steroid 09/18/21 [History Last Taken Unknown] tacrolimus 1 mg tablet,extended release 24 hr (Envarsus XR) 1 mg PO DAILY rejection med 09/18/21 [History Last Taken Unknown] carvedilol 25 mg tablet 25 mg PO BID 12/26/21 [History Last Taken Unknown] cholecalciferol (vitamin D3) 25 mcg (1,000 unit) capsule (Vitamin D3) 50 mcg PO QWEEK 12/26/21 [History Last Taken Unknown] gabapentin 100 mg tablet 100 mg PO QHS 12/26/21 [History Last Taken Unknown] Allergy/AdvReac Type Severity Reaction Status Date / Time No Known Allergies Allergy Verified 01/19/22 10:41 Family History Mother Heart disease Hypertension Father Cancer Brother Cancer Diabetes Sister Diabetes Surgical History History of appendectomy History of arteriovenostomy for renal dialysis (~08/2018) History of artificial lens replacement History of cholecystectomy History of eye surgery Kidney replaced by transplant Renal transplant recipient Status post insertion of dialysis catheter (~08/2018) Social History (Updated 03/24/22 @ 01:[address] Isamar Smith MD) household members: spouse Smoking Status: Never smoker second hand exposure: No alcohol intake: never substance use type: does not use caffeine: No ROS ROS ED Review of Systems ROS Unobtainable: other Constitutional Constitutional ED: Reports lethargy; Denies chills, fever(s), sweats or weight loss Eyes Eyes: Denies blurry vision, change in vision or diplopia ENT ENT ED: Denies rhinorrhea or sore throat Cardiovascular Cardiovascular: Reports chest pain and racing heartbeat; Denies orthopnea Respiratory/Chest Respiratory/Chest: Reports dyspnea and dyspnea on exertion; Denies cough, orthopnea or sputum Gastrointestinal Gastrointestinal: Denies abdominal pain, diarrhea, nausea or vomiting Genitourinary Genitourinary ED: Denies dysuria, hematuria or urinary frequency Musculoskeletal Musculoskeletal: Reports other Details: Left foot wound, redness, swelling ; Denies arthralgias, back pain, myalgias or neck pain Integumentary Denies abscess, Abrasions or rash Neurologic Neurologic: Denies headache(s) or weakness Psychiatric Psychiatric: Denies anxiety, depression or suicidal thoughts Endocrine Endocrinology: Denies polydipsia, polyphagia or polyuria Hematologic/Lymphatic Hematologic/Lymphatic: Denies easy bleeding, easy bruising or lymphadenopathy Allergic/Immunologic Allergic/Immunologic ED: Denies mouth swelling, tongue swelling or urticaria EXAM Physical Exam Const Vital Signs: 03/24/22 01:02 03/24/22 01:04 03/24/22 02:17 Temperature 97.6 F L 97.6 F L 100.2 F H Temperature Source Oral Oral Oral Pulse Rate 96 96 103 H Respiratory Rate 18 18 20 H Blood Pressure 146/76 H 146/76 H 180/78 H Blood Pressure Mean 99 99 112 Pulse Ox 99 97 97 Oxygen Delivery Method Room Air Room Air Room Air Positive well nourished and well developed General Appearance ED: well developed and NAD HEENT Reports TM's clear and moist mucous membranes normocephalic and atraumatic; Negative for trauma or tenderness Tympanic Membrane ED: Yes TM's clear Eyes PERRL and EOMs intact bilaterally General Eye ED: Negative for pale conjunctiva or scleral icterus Neck no lymphadenopathy, supple and no JVD General: Negative for tenderness Chest Wall inspection of chest normal and palpation of chest normal Chest: Negative for tenderness Resp normal respiratory effort and clear to auscultation bilaterally Effort and Inspection: Negative for respiratory distress or pain with movement Auscultation: Negative for rhonchi, wheezes or diminished lung sounds Cardio regular rate, regular rhythm, S1 normal heart sound, S2 normal heart sound and no murmurs Peripheral Pulses: pulses 2+ throughout GI normal to inspection, nondistended, normoactive bowel sounds, soft to palpation, non-tender, non-distended and no masses Back/Spine no CVA tenderness and no thoracic nor lumbar tenderness Extremity Extremity Narrative: Left foot-patient has edema of the left foot with erythema and cellulitic changes. Patient has wound noted to the left lateral foot over the area of the fifth MTP joint. Patient also has wounds on the fourth and fifth toes with some dark eschar noted. There is diffuse edema. There is a foul odor. General Extremety ED: Yes edema General Extremity: edema Neuro oriented x3, CN's II-XII intact bilaterally, no sensory deficits noted and gait normal Sensorium / Orientation: awake, alert, oriented to person, oriented to place and oriented to time Motor Exam: strength 5/5 throughout and strength abnormal Psych mental status grossly normal Skin no rashes or lesions noted and no wounds MDM MDM MDM Narrative Medical decision making narrative: IV line established on arrival. Wound culture was obtained. Patient was noted to have an elevated white count of 16.1. Patient had an x-ray of the foot that shows some gas within the soft tissues adjacent to the MCP joint of the fifth toe and fourth toe. Official report from radiology pending. Patient was started on Zosyn and Vanco IV. Case discussed with hospitalist will evaluate patient for admission. There is concern for necrotizing fasciitis. This was discussed with hospitalist who will contact podiatry. Lab Data Attestation: I reviewed the patient's lab results. Labs: Laboratory Results - last 24 hr 03/24/22 03/24/22 03/24/22 01:10 01:10 01:10 WBC 16.1 H RBC 5.35 Hgb 15.4 Hct 48.3 MCV 90.3 MCH 28.8 MCHC 31.9 L RDW Std Deviation 42.1 RDW Coeff of Tomy 12.8 Plt Count 249 MPV 10.1 Immature Gran % (Auto) 0.700 Neut % (Auto) 80.9 H Lymph % (Auto) 7.2 L Titus % (Auto) 10.9 H Eos % (Auto) 0.1 Baso % (Auto) 0.2 Absolute Neuts (auto) 13.0 H Absolute Lymphs (auto) 1.16 Nucleated RBC % 0 Differential Comment SCANNED Diff Path Review May foll Sodium 132 L Potassium 4.7 Chloride 100 Carbon Dioxide 24.0 Anion Gap 8 BUN 33 H Creatinine 2.26 H Estim Creat Clear Calc 36.57 Est GFR (MDRD) Af Amer 39 L Est GFR (MDRD) Non-Af 32 L BUN/Creatinine Ratio 14.6 Glucose 397 H Lactic Acid 1.9 Calcium 9.6 Radiography Diagnostic Testing: Clinical Impression(s) from Imaging Studies Foot X-Ray 03/24/22 01:50 IMPRESSION: Air bubbles are seen in the soft tissues at the fifth toe, at the dorsal aspect of the foot and at the ankle consistent with necrotizing fasciitis. Electronically Signed: Owen Del Valle MD at 2:13 EDT , ADDENDUM: 03/24/22 0230 IMPRESSION: Air bubbles are seen in the soft tissues at the fifth toe, at the dorsal aspect of the foot and at the ankle consistent with necrotizing fasciitis. N.B. : The above Results were Read Back by Owen Del Valle MD to Toni Nelson MD, and understanding confirmed on 03/24/2022 02:23:23 (ET). Electronically Signed: Owen Del Valle MD at 2:13 EDT , Three-view x-rays of the right foot obtained interpreted by myself as gas within the soft tissue adjacent to the fourth and fifth MTP joints. No definite evidence of osteomyelitis noted. Official report from radiology pending. Radiology was in agreement and they felt that he had air bubbles all the way up to the ankle with concern for necrotizing fasciitis. Discharge Plan Dx/Rx/DC Orders Clinical Impression: Diabetic foot infection, ILDA (acute kidney injury), Acute hyperglycemia, Sepsis Disposition Disposition: Acute Care [facility]
[2022-03-24] MEDS: 0.9% Normal Saline 1,000 ML 150 ML IV ×4 (01:37→19:43)
[2022-03-24 01:42] LABS: Absolute Lymphocyte Count 1.16 X10^3/uL (0.83-4.51); Basophil# 0.03 X10^3/uL; Basophil% 0.2 % (0-1); Eosinophil# 0.01 X10^3/uL; Eosinophils% 0.1 % (0-5); Hematocrit 48.3 % (40-54); Hemoglobin 15.4 g/dL (13.0-16.5); Lymphocyte # 1.16 X10^3/ul (0.83-4.51); Lymphocyte % 7.2 % (19-41); Mean Corp Hgb Conc 31.9 g/dL (32-36); Mean Corpuscular Hgb 28.8 pg (27.0-32.0); Mean Corpuscular Volume 90.3 fL (80-94); Mean Platelet Vol. 10.1 fl (6.2-12.0); Monocyte# 1.75 X10^3/uL; Monocyte% 10.9 % (0-10); NRBC Flagged by Analyzer 0 % (0-5); Neutrophil # 12.98 X10^3/uL (2.7-7.7); Neutrophil % 80.9 % (47-70); POSITIVE DIFFERENTIAL YES; Platelet Count 249 K/mm3 (150-450); RBC Distribution Width CV 12.8 % (11.6-14.6); RBC Distribution Width SD 42.1 fl (35.1-43.9); Red Blood Count 5.35 M/mm3 (4.6-6.2); White Blood Count 16.1 K/mm3 (4.4-11.0)
[2022-03-24 01:48] LABS: Differential Indicated SCAN CRITERIA MET
--- NOTE | 2022-03-24 01:50 | RAD_ITS ---
We are attempting to reach an attending provider to discuss findings. An addendum with communication details will be sent when the communication is complete. STUDY: X-RAY - LEFT FOOT CLINICAL: Male, 51 years old. wound infection TECHNIQUE: History view(s) of the foot. COMPARISON: None. FINDINGS: Normal talus, calcaneus, and tarsal bones. Normal visualized subtalar, talonavicular, calcaneocuboid, tarsal and tarsometatarsal articulations. Normal metatarsi. Normal metatarsophalangeal joint of the great toe. Normal tibial and fibular sesamoid bones. Normal interphalangeal joint of the great toe. Normal phalanges of the great toe. Normal second through fifth metatarsophalangeal joints. Normal interphalangeal joints and phalanges of the lesser toes. Air bubbles are seen in the soft tissues at the fifth toe, at the dorsal aspect of the foot and at the ankle consistent with necrotizing fasciitis. RAD/Foot min 3 Views IMPRESSION: Air bubbles are seen in the soft tissues at the fifth toe, at the dorsal aspect of the foot and at the ankle consistent with necrotizing fasciitis. Electronically Signed: Owen Del Valle MD at 2:13 EDT ,
[2022-03-24 01:59] LABS: Anion Gap 8 (5-15); BUN 33 mg/dL (7-18); BUN/Creat Ratio 14.6 RATIO (10-20); Calcium,Total 9.6 mg/dL (8.5-10.1); Chloride 100 mmol/L (98-107); Creatinine, Serum 2.26 mg/dL (0.70-1.30); EST Glomerular Filtration Rate 32 mL/min (>60); Est Glom Filt Rate - Afr Amer 39 mL/min (>60); Estimated Creatinine Clearance 36.57 ml/min; Glucose 397 mg/dL (74-106); Potassium 4.7 mmol/L (3.5-5.1); Sodium Level 132 mmol/L (136-145)
[2022-03-24] MEDS: Ondansetron 4 MG/2 ML Vial IV (02:13)
[2022-03-24 02:16] LABS: Lactic Acid 1.9 mmol/L (0.4-1.9)
[2022-03-24 02:26] LABS: Differential Comment SCANNED
--- NOTE | 2022-03-24 02:30 | HP.PCM.HOS_ITS ---
HPI - General General Date of Admission: 03/24/22 Date of Service: 03/24/22 Chief Complaint: L foot pain, redness, discharge, foul odor, chills. HPI Narrative The patient is a 51 y/o M w/ PMHx: Hx CKD stage IV s/p Renal Txp now 1 year out, Chronic Diastolic CHF, HTN, HLD, Anxiety and Depression, Chronic L eye blindness, GERD, Obesity, Diabetes mellitus type II with neuropathy following at the [facility] with Dr. Levy with most recent evaluation on 03/13/22 for L foot ulcer with noted new wound region plantar region with some cellulitis prompting debridement, culture and initiation on doxycycline/cipro regimen with daily dressing changes silver alginate DSD, offloading with surgical shoe who now presents to the [facility] ED on 03/24/22 with history of recent vacation to [place] reporting that he did not go in the water however following further discussions did admit that he wore sandals and did walk along the beach with water contact and in the sand with onset 2 days prior to current presentation increased pain, redness and edema to the left foot with chills with drainage from the wound as well as foul odor without any noted fever prior to this presentation prompting ED evaluation. He does report associated nausea and emesis since onset worsened foot appearance. He notes the pain to the LLE as throbbing, aching, worsening with certain activity/movement, rated worst 10/10, current 6-7/10. Work-up in the ED included T97.6, heart rate 96, BP 146/76, respiratory rate 18, 97% on room air, blood culture x2 pending per ED, CBC with WBC 16.1, hemoglobin 15.4, platelet 249 with left shift, BMP with sodium 132, BUN/creat 33/2.26, glucose 397, lactic acid 1.9, plain film of the left foot with a air bubble seen in the soft tissues of the fifth toe, dorsal aspect of the foot and at the ankle consistent with necrotizing fascia, pending wound culture pending per ED. In the ED patient ministered normal saline, Zosyn and vancomycin. Immediately upon presentation contacted patient podiatry team and reviewed case with plan transition to the OR per podiatry and following discussion given potential quick decompensation of patient planned admission to the ICU per podiatry recommendation. [facility] Medical History (Updated 03/24/22 @ 03:[address] Toni Nelson, DO) Acute hypoxemic respiratory failure Acute on chronic diastolic CHF (congestive heart failure) Acute respiratory failure with hypoxia ILDA (acute kidney injury) Anasarca associated with disorder of kidney Anemia of chronic renal failure, stage 4 (severe) Anxiety and depression Atherosclerotic heart disease of [place] coronary artery without angina pectoris Autonomic neuropathy Blind left eye Cellulitis and abscess of right leg Chewing tobacco nicotine dependence Chronic renal failure, stage 4 (severe) Chronic ulcer of 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 COVID-19 COVID-19 Diabetes mellitus type II, uncontrolled Diabetic nephropathy Diabetic neuropathy Diabetic retinopathy Dyspnea Essential hypertension Fistula (~12/2018) GERD (gastroesophageal reflux disease) History of acute myocardial infarction History of left heart catheterization (LHC) (~06/26/11) HLD (hyperlipidemia) Hypertensive emergency Hypoglycemia Hypokalemia Hypoxemia Kidney failure Kidney stones Noncompliance Obesity (BMI 30-39.9) Pneumonia Problem with dialysis access Pulmonary edema Respiratory failure Retention, urine Right leg pain 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 Vision problems Home Medications aspirin 81 mg chewable tablet 81 mg PO DAILY@0800 heart health 08/21/18 [History Last Taken 10/06/19] insulin lispro 100 unit/mL subcutaneous pen See Protocol SQ ACHS blood sugar 10/06/19 [History Last Taken 10/06/19] insulin glargine 100 unit/mL (3 mL) subcutaneous pen 0 unit subcut QHS blood sugar 08/11/20 [History Last Taken Unknown] atorvastatin 20 mg tablet (Lipitor) 20 mg PO QHS cholesterol 09/18/21 [History Last Taken Unknown] bupropion HCl 150 mg 24 hr tablet, extended release (Wellbutrin XL) 300 mg PO DAILY mood 09/18/21 [History Last Taken Unknown] docusate sodium 100 mg capsule (Colace) 100 mg PO DAILY constipation 09/18/21 [H istory Last Taken Unknown] mycophenolate mofetil 250 mg capsule (CellCept) 500 mg PO BID rejection med 09/18/21 [History Last Taken Unknown] pantoprazole 20 mg tablet,delayed release (Protonix) 20 mg PO DAILY gerd 09/18/21 [History Last Taken Unknown] prednisone 5 mg tablet 5 mg PO DAILY steroid 09/18/21 [History Last Taken Unknown] tacrolimus 1 mg tablet,extended release 24 hr (Envarsus XR) 1 mg PO DAILY rejection med 09/18/21 [History Last Taken Unknown] carvedilol 25 mg tablet 25 mg PO BID 12/26/21 [History Last Taken Unknown] cholecalciferol (vitamin D3) 25 mcg (1,000 unit) capsule (Vitamin D3) 50 mcg PO QWEEK 12/26/21 [History Last Taken Unknown] gabapentin 100 mg tablet 100 mg PO QHS 12/26/21 [History Last Taken Unknown] Allergy/AdvReac Type Severity Reaction Status Date / Time No Known Allergies Allergy Verified 01/19/22 10:41 Family History Mother Heart disease Hypertension Father Cancer Brother Cancer Diabetes Sister Diabetes Surgical History History of appendectomy History of arteriovenostomy for renal dialysis (~08/2018) History of artificial lens replacement History of cholecystectomy History of eye surgery Kidney replaced by transplant Renal transplant recipient Status post insertion of dialysis catheter (~08/2018) Social History (Updated 03/24/22 @ 01:[address] Isamar Smith MD) household members: spouse Smoking Status: Never smoker second hand exposure: No alcohol intake: never substance use type: does not use caffeine: No ROS ROS Narrative Admission Review of Systems: CONSTITUTIONAL: No weight loss, fever, + chills, weakness or fatigue. Denies any fevers prior but upon ED presentation did have onset of fevers of note. HEENT: Eyes: No visual loss, blurred vision, double vision or yellow sclerae. Ears, Nose, Throat: No hearing loss, sneezing, congestion, runny nose or sore throat. SKIN: + Significant left diabetic foot wound with a plantar ulcer very necrotic in appearance with left-sided lateral foot maceration, crepitus, foul odor and dusky appearance especially of the fifth toe. CARDIOVASCULAR: No chest pain, chest pressure or chest discomfort, palpitations, edema, orthopnea, syncopal events. RESPIRATORY: No shortness of breath, cough or sputum, wheezing, hemoptysis. GASTROINTESTINAL: + anorexia, nausea, vomiting, No diarrhea, abdominal pain, melena, BRBPR. GENITOURINARY: No dysuria, frequency, urgency or retention. NEUROLOGICAL: No headache, dizziness, syncope, paralysis, ataxia, numbness or tingling in the extremities, focal weakness, change in bowel or bladder control, seizure. MUSCULOSKELETAL: + muscle, back pain, joint pain or stiffness. HEMATOLOGIC: + anemia, bleeding or bruising. LYMPHATICS: No enlarged nodes. No history of splenectomy. PSYCHIATRIC: + history of depression or anxiety. ENDOCRINOLOGIC: + reports of sweating, cold or heat intolerance. No polyuria or polydipsia. ALLERGIES: No history of asthma, hives, eczema or rhinitis. Vital Signs Vital Signs Vital Signs: 03/24/22 01:02 03/24/22 01:04 03/24/22 02:17 Temperature 97.6 F L 97.6 F L 100.2 F H Temperature Source Oral Oral Oral Pulse Rate 96 96 103 H Respiratory Rate 18 18 20 H Blood Pressure 146/76 H 146/76 H 180/78 H Blood Pressure Mean 99 99 112 Pulse Ox 99 97 97 Oxygen Delivery Method Room Air Room Air Room Air Weight Weight: 237 lb 3.478 oz Body Mass Index (BMI) 36.1 Physical Exam Narrative Physical Examination: General: Awake, alert, oriented x 3 and cooperative, seated upright in the ED bed, fatigued, ill-appearing. Skin: Normal color, normal turgor, no icterus, no cyanosis except noted significant left diabetic foot wound with a plantar ulcer very necrotic in appearance with left-sided lateral foot maceration, crepitus, foul odor and dusky appearance especially of the fifth toe. HEENT: AT/NC, EOMI, PERRLA, moderately dry MM, no carotid bruits or JVD noted. Lungs: Diminished, greater bases, mildly increased respiratory rate but no distress, no rales, ronchi or wheezing. Heart: Tachycardic with regular rhythm; no gallop, rub audible. Abdomen: Soft, obese, NTTP, ND, distant normal BS, no HSM. Extremities: No cyanosis, no clubbing, see skin Neurological: Patient awake, alert, oriented as noted, cognitive function intact; pupils equally reactive to light and accommodation, cranial nerves II- XII grossly normal, moving all 4 extremities although limited left lower extremity movement secondary to pain elicited, no focal deficits, strength moderately global decrease secondary to acute presentation Psychiatric: Affect appears fatigued, ill-appearing, became anxious with honest discussions that patient would require immediate surgery, does have underlying depression and anxiety. Results Lab / Micro Data Result Diagrams: 03/24/22 01:10 03/24/22 01:10 Labs: Laboratory Results - last 24 hr 03/24/22 01:10: WBC 16.1 H, RBC 5.35, Hgb 15.4, Hct 48.3, MCV 90.3, MCH 28.8, MCHC 31.9 L, RDW Std Deviation 42.1, RDW Coeff of Tomy 12.8, Plt Count 249, MPV 10.1, Immature Gran % (Auto) 0.700, Neut % (Auto) 80.9 H, Lymph % (Auto) 7.2 L, [place] % (Auto) 10.9 H, Eos % (Auto) 0.1, Baso % (Auto) 0.2, Absolute Neuts (auto) 13.0 H, Absolute Lymphs (auto) 1.16, Nucleated RBC % 0, Differential Comment SCANNED, Diff Path Review January03/24/22 01:10: Sodium 132 L, Potassium 4.7, Chloride 100, Carbon Dioxide 24.0, Anion Gap 8, BUN 33 H, Creatinine 2.26 H, Estim Creat Clear Calc 36.57, Est GFR (MDRD) Af Amer 39 L, Est GFR (MDRD) Non-Af 32 L, BUN/Creatinine Ratio 14.6, Glucose 397 H, Calcium 9.6 03/24/22 01:10: Lactic Acid 1.9 Radiology Impression Foot X-Ray 03/24/22 01:50 IMPRESSION: Air bubbles are seen in the soft tissues at the fifth toe, at the dorsal aspect of the foot and at the ankle consistent with necrotizing fasciitis. Electronically Signed: Owen Del Valle MD at 2:13 EDT , Assessment & Plan Assessment/Plan (1) Necrotizing fasciitis: PLAN: Plan The patient is a 51 y/o M w/ PMHx: Hx CKD stage IV s/p Renal Txp now 1 year out, Chronic Diastolic CHF, HTN, HLD, Anxiety and Depression, Chronic L eye blindness, GERD, Obesity, Diabetes mellitus type II with neuropathy following at the [facility] with Dr. Levy with most recent evaluation on 03/13/22 for L foot ulcer with noted new wound region plantar region with some cellulitis prompting debridement, culture and initiation on doxycycline/cipro regimen with daily dressing changes silver alginate DSD, offloading with surgical shoe who now presents to the [facility] ED on 03/24/22 with history of recent vacation to [place] with onset 2 days prior to current presentation increased pain, redness and edema to the left foot with chills without any noted fever prompting ED evaluation. #1. Infected Necrotizing Fasciitis of Left Foot Diabetic Wound: Will admit to the ICU per discussion with Podiatry given concerns about potential deterioration, maintain on IV vanc and zosyn pending repeat Wound Cx, Wound MRSA PCR, plan repeat CBC in AM, continue affected extremity elevation above heart when seated and in bed, monitor erythema outline with VS checks, obtain ESR and CRP, consult Podiatry, PRN pain regimen/antiemetics, dressing changes pending podiatry intervention/Wound RN evaluation, will need offloading, heel protection, consultations will including ICU physician, Podiatry as well as Infectious disease and see #2, maintain NPO status, judiciously hydrate given #3. #2. ILDA on CKD stage V s/p Renal Txp status: Patient s/p renal txp ~ 1 year out, encourage continued follow-up with his transplant team, admission BUN/Cr 33/2.26, baseline noted primarily 1.3-1.7, will continue to trend, judiciously hydrate given #3, consult Nephrology given complicated history. Given acute infectious presentation as noted #1 we will temporarily hold patient mycophenolate regimen, continue tacrolimus with level requested and continue prednisone therapy with low threshold for stress dose if patient clinical worsens. #3. Chronic diastolic CHF: We will continue patient home aspirin, statin, Coreg, statin therapy, not on TOM inhibitor/ARB with underlying significant renal disease as noted, judiciously hydrate given history. #4. Hypertension: We will continue patient home Coreg regimen with hold parameters as needed, as needed IV hydralazine. #5. Hyperlipidemia: We will continue patient on statin therapy. #6. Diabetes mellitus type II with neuropathy: Hold oral home regimen, continue home insulin regimen, ADA diet, accu checks w/ ISS. #7. Anxiety and depression: We will continue patient home bupropion regimen. #8. Obesity: Weight loss and lifestyle changes encouraged. #9. Tobacco Abuse: Encouraged cessation, inpatient consultation per RT, NR if desired. #10. GERD: We will continue patient on PPI. #11. DVT prophylaxis: SCDs, will hold chemoprophylaxis for OR. #12. CODE status: Patient HCPOA is his significant other who is present and living will is in place. Discussed CODE status at length including difference between FULL code, DNR-CCA and DNR-CC status. Following discussions about the differences in these status, requested Full Code status. Advanced Care Planning Face to Face Time: 16 minutes. Charges/Coding Visit Charges Inpatient E&M: 41967 Init Hosp L3 Procedures Hospitalists Procedures: 28088 Advncd Care Plan 30 Min
[2022-03-24] MEDS: Acetaminophen 650 MG Suppository RC (02:47)
[2022-03-24 03:31] LABS: Magnesium 2.2 mg/dL (1.6-2.6)
[2022-03-24 03:47] LABS: Erythrocyte Sedimentation Rate 92 mm/hr (0-20)
[2022-03-24] MEDS: 0.9% Normal Saline 1,000 ML 999 ML IV (04:01)
[2022-03-24 04:05] LABS: M R Staph aureus DNA By PCR Negative (Negative); Probe Check PASS; Specimen Processing Control PASS; Staph aureus DNA By PCR POSITIVE (Negative)
--- NOTE | 2022-03-24 04:54 | PCM.RX.CS ---
Consult Pharmacy has been consulted to manage selected antiobiotic: Vancomycin Type of Consult: New start Suspected Infection: Skin/Soft tissue Labs: Sodium 132 mmol/L (136-145) L 03/24/22 01:10 Potassium 4.7 mmol/L (3.5-5.1) 03/24/22 01:10 Chloride 100 mmol/L (98-107) 03/24/22 01:10 Carbon Dioxide 24.0 mmol/L (21.0-32.0) 03/24/22 01:10 Anion Gap 8 (5-15) 03/24/22 01:10 BUN 33 mg/dL (7-18) H 03/24/22 01:10 Creatinine 2.26 mg/dL (0.70-1.30) H 03/24/22 01:10 Est GFR (MDRD) Af Amer 39 mL/min (>60) L 03/24/22 01:10 Est GFR (MDRD) Non-Af 32 mL/min (>60) L 03/24/22 01:10 BUN/Creatinine Ratio 14.6 RATIO (10-20) 03/24/22 01:10 Glucose 397 mg/dL (74-106) H 03/24/22 01:10 Weight used for dosin.7 kg Estimated Creatinine Clearance: 32.8 Goal Trough: 15-20 mcg/mL Pharmacy Plan for Drug Dosing: Pharmacy Service will continue to monitor and adjust dosing as required. Medications Vancomycin HCl 1,500 mg/ (Sodium Chloride) 530 mls @ 250 mls/hr IV Q24H HEDY Discontinued Medications Vancomycin HCl 1,500 mg/ (Sodium Chloride) 530 mls @ 250 mls/hr IV X1 ONE Stop: 03/24/22 03:28 Last Admin: 03/24/22 02:29 Dose: 250 mls/hr Follow-Up Labs: Trough Vancomycin Labs to be done on [date and time ordered]: 03/26 @ 0200
[2022-03-24] MEDS: Carvedilol 25 MG Tablet PO ×2 (05:29→21:18)
[2022-03-24 05:37] LABS: Absolute Lymphocyte Count 0.82 X10^3/uL (0.83-4.51); Absolute Neutrophil Count 13.5 X10^3/uL (2.0-7.7); Basophil# 0.02 X10^3/uL; Basophil% 0.1 % (0-1); Eosinophil# 0.01 X10^3/uL; Eosinophils% 0.1 % (0-5); Hematocrit 44.1 % (40-54); Lymphocyte # 0.82 X10^3/ul (0.83-4.51); Mean Corp Hgb Conc 31.7 g/dL (32-36); Mean Corpuscular Hgb 28.6 pg (27.0-32.0); Mean Platelet Vol. 10.1 fl (6.2-12.0); NRBC Flagged by Analyzer 0 % (0-5); Neutrophil # 13.52 X10^3/uL (2.7-7.7); POSITIVE DIFFERENTIAL YES; Platelet Count 239 K/mm3 (150-450); RBC Distribution Width CV 12.8 % (11.6-14.6); RBC Distribution Width SD 42.2 fl (35.1-43.9); White Blood Count 16.3 K/mm3 (4.4-11.0)
[2022-03-24 05:44] LABS: Differential Indicated SCAN CRITERIA MET
[2022-03-24 05:55] LABS: ALB/GLOB Ratio 0.6 RATIO (0.9-2.4); AST(SGOT) 22 U/L (15-37); Alanine Aminotransfer ALT/SGPT 43 U/L (16-61); Albumin, Serum 2.4 g/dL (3.2-5.0); Alkaline Phosphatase 154 U/L (45-117); Anion Gap 7 (5-15); BUN 31 mg/dL (7-18); BUN/Creat Ratio 16.8 RATIO (10-20); Calcium,Total 8.8 mg/dL (8.5-10.1); Chloride 106 mmol/L (98-107); Creatinine, Serum 1.84 mg/dL (0.70-1.30); EST Glomerular Filtration Rate 41 mL/min (>60); Est Glom Filt Rate - Afr Amer 50 mL/min (>60); Estimated Creatinine Clearance 44.92 ml/min; Globulin 3.8 g/dL (2.2-4.2); Glucose 352 mg/dL (74-106); Potassium 4.7 mmol/L (3.5-5.1); Protein, Total 6.2 g/dL (6.4-8.2); Sodium Level 136 mmol/L (136-145)
[2022-03-24 06:06] LABS: Differential Comment SCANNED
[2022-03-24] MEDS: Insulin Lispro 100 UNIT/ML INSULN.PEN SC ×4 (07:02→21:07)
--- NOTE | 2022-03-24 07:04 | EX.PCM.CONCC ---
Assessment & Plan Assessment/Plan (1) Necrotizing fasciitis: PLAN: Plan RECOMMENDATIONS: 1. Continue gentle IV fluids. 2. Continue broad-spectrum antimicrobials. 3. Await podiatry consultation, with tentative plans for surgical intervention. 4. The patient is to remain n.p.o. for now. 5. Nephrology consultation is pending. 6. As the patient has no ICU needs from my perspective, will sign off. Please call with any additional questions. IMPRESSIONS: 1. Necrotizing fasciitis involving the left foot The patient remains clinically stable. Podiatry consultation is currently pending, with tentative plans for surgical intervention. Plan to continue empiric broad-spectrum antimicrobials in the interim. Continue local wound care. 2. ILDA on CKD status post renal transplant Likely prerenal in etiology. Creatinine has improved with gentle IV fluid resuscitation. Tacrolimus levels are currently pending. Continue to hold CellCept. Nephrology consultation is pending. 3. Heart failure with preserved ejection fraction/hypertension/hyperlipidemia/diabetes mellitus/obesity Complicates care, management, recovery and prognosis. Continue home medications as indicated. This note was generated with [employer] dictation software. It may contain incorrect words, spelling, and punctuation that were not noted in checking the note before signing. HPI Consult Data Date of Consult: 03/25/22 HPI Narrative Reason for Consultation: Left foot necrotizing fasciitis HPI Narrative: The patient is a 51-year-old male, with a history as outlined below, who presented to the emergency department on March 24 with a left foot wound and drainage. The patient was recently evaluated by a carousel attendant on March 13 with a left foot ulcer, which ultimately required surgical debridement. The patient was placed on antimicrobials and local wound care. He then traveled to [place] recently where he wore sandals and walked along the beach with water contact. The patient subsequently developed increased pain, redness and drainage from the wound. The patient does have a known history of renal transplantation approximately 1 year ago along with heart failure with preserved ejection fraction, diabetes mellitus with neuropathy, depression and anxiety. On presentation to the emergency department, the patient was noted to be afebrile and hemodynamically stable. He was maintaining appropriate oxygen saturations on room air. Laboratory evaluation demonstrated a white blood cell count of 16,000. ESR was elevated at 92. Chemistry profile was notable for a creatinine of 2.26. CRP was elevated at 187. MRSA screen was positive. Plain film x-ray of the foot demonstrated air bubbles within the soft tissues at the fifth toe at the dorsal aspect of the foot and at the ankle, consistent with necrotizing fasciitis. The patient received supplemental IV fluids and was started on broad-spectrum antimicrobials. Consultations were placed to podiatry for potential surgical intervention along with nephrology, given the patient's history of renal transplantation. He was subsequently admitted to the medical intensive care unit for further management. Overall, this morning, the patient remains hemodynamically stable on room air. [facility] Medical History Acute hypoxemic respiratory failure Acute on chronic diastolic CHF (congestive heart failure) Acute respiratory failure with hypoxia ILDA (acute kidney injury) Anasarca associated with disorder of kidney Anemia of chronic renal failure, stage 4 (severe) Anxiety and depression Atherosclerotic heart disease of [place] coronary artery without angina pectoris Autonomic neuropathy Blind left eye Cellulitis and abscess of right leg Chewing tobacco nicotine dependence Chronic renal failure, stage 4 (severe) Chronic ulcer of 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 COVID-19 COVID-19 Diabetes mellitus type II, uncontrolled Diabetic nephropathy Diabetic neuropathy Diabetic retinopathy Dyspnea Essential hypertension Fistula (~12/2018) GERD (gastroesophageal reflux disease) History of acute myocardial infarction History of left heart catheterization (LHC) (~06/26/11) HLD (hyperlipidemia) Hypertensive emergency Hypoglycemia Hypokalemia Hypoxemia Kidney failure Kidney stones Noncompliance Obesity (BMI 30-39.9) Pneumonia Problem with dialysis access Pulmonary edema Respiratory failure Retention, urine Right leg pain 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 Vision problems Home Medications aspirin 81 mg chewable tablet 81 mg PO DAILY@0800 heart health 08/21/18 [History Last Taken 10/06/19] insulin lispro 100 unit/mL subcutaneous pen See Protocol SQ ACHS blood sugar 10/06/19 [History Last Taken 10/06/19] insulin glargine 100 unit/mL (3 mL) subcutaneous pen 0 unit subcut QHS blood sugar 08/11/20 [History Last Taken Unknown] atorvastatin 20 mg tablet (Lipitor) 20 mg PO QHS cholesterol 09/18/21 [History Last Taken Unknown] bupropion HCl 150 mg 24 hr tablet, extended release (Wellbutrin XL) 300 mg PO DAILY mood 09/18/21 [History Last Taken Unknown] docusate sodium 100 mg capsule (Colace) 100 mg PO DAILY constipation 09/18/21 [History Last Taken Unknown] mycophenolate mofetil 250 mg capsule (CellCept) 500 mg PO BID rejection med 09/18/21 [History Last Taken Unknown] pantoprazole 20 mg tablet,delayed release (Protonix) 20 mg PO DAILY gerd 09/18/21 [History Last Taken Unknown] prednisone 5 mg tablet 5 mg PO DAILY steroid 09/18/21 [History Last Taken Unknown] tacrolimus 1 mg tablet,extended release 24 hr (Envarsus XR) 1 mg PO DAILY rejection med 09/18/21 [History Last Taken Unknown] carvedilol 25 mg tablet 25 mg PO BID 12/26/21 [History Last Taken Unknown] cholecalciferol (vitamin D3) 25 mcg (1,000 unit) capsule (Vitamin D3) 50 mcg PO QWEEK 12/26/21 [History Last Taken Unknown] gabapentin 100 mg tablet 100 mg PO QHS 12/26/21 [History Last Taken Unknown] Allergy/AdvReac Type Severity Reaction Status Date / Time No Known Allergies Allergy Verified 01/19/22 10:41 Family History Mother Heart disease Hypertension Father Cancer Brother Cancer Diabetes Sister Diabetes Surgical History History of appendectomy History of arteriovenostomy for renal dialysis (~08/2018) History of artificial lens replacement History of cholecystectomy History of eye surgery Kidney replaced by transplant Renal transplant recipient Status post insertion of dialysis catheter (~08/2018) Social History household members: spouse Smoking Status: Never smoker second hand exposure: No alcohol intake: never substance use type: does not use caffeine: No ROS Constitutional Constitutional: Denies chills, fatigue or fever(s) Eyes Eyes: Denies blurry vision or change in vision ENT HEENT: Denies dizziness, dysphagia, nasal discharge or sore throat Cardiovascular Cardiovascular: Denies chest pain, dizziness or dyspnea Respiratory/Chest Respiratory/Chest: Denies chest tightness, cough or dyspnea Gastrointestinal Gastrointestinal: Denies abdominal pain, diarrhea, nausea or vomiting Genitourinary Genitourinary: Denies difficulty urinating Musculoskeletal Musculoskeletal: Reports joint pain Integumentary Integumentary: Reports wounds Neurologic Neurologic: Denies abnormal gait, abnormal speech or confusion Psychiatric Psychiatric: Denies anxiety or depression Endocrine Endocrinology: Denies fatigue Hematologic/Lymphatic Hematologic/Lymphatic: Denies easy bleeding or easy bruising Physical Exam Const alert, oriented x3 and no apparent distress Nutritional Appearance: obese HEENT normocephalic and head/scalp atraumatic Eyes PERRL, EOMs intact bilaterally and conjunctivae normal Neck supple General: trachea midline Chest inspection of chest normal Resp normal respiratory effort Auscultation: Negative for rales, rhonchi or wheezes Cardio regular rate and regular rhythm GI normal to inspection, nondistended, normoactive bowel sounds Extremity no clubbing, cyanosis or edema Skin Skin Narrative: Left foot ulcer, currently wrapped with surrounding cellulitis. General Skin Exam: erythema Neuro CN's II-XII intact bilaterally and no focal motor deficits Psych cooperative and affect normal Lab / Micro Data Result Diagrams: 03/24/22 05:30 03/24/22 05:30 Labs: Laboratory Results - last 24 hr 03/24/22 01:10: WBC 16.1 H, RBC 5.35, Hgb 15.4, Hct 48.3, MCV 90.3, MCH 28.8, MCHC 31.9 L, RDW Std Deviation 42.1, RDW Coeff of Tomy 12.8, Plt Count 249, MPV 10.1, Immature Gran % (Auto) 0.700, Neut % (Auto) 80.9 H, Lymph % (Auto) 7.2 L, [place] % (Auto) 10.9 H, Eos % (Auto) 0.1, Baso % (Auto) 0.2, Absolute Neuts (auto) 13.0 H, Absolute Lymphs (auto) 1.16, Nucleated RBC % 0, Differential Comment SCANNED, Diff Path Review January03/24/22 01:10: Sodium 132 L, Potassium 4.7, Chloride 100, Carbon Dioxide 24.0, Anion Gap 8, BUN 33 H, Creatinine 2.26 H, Estim Creat Clear Calc 36.57, Est GFR (MDRD) Af Amer 39 L, Est GFR (MDRD) Non-Af 32 L, BUN/Creatinine Ratio 14.6, Glucose 397 H, Calcium 9.6 03/24/22 01:10: Lactic Acid 1.9 03/24/22 01:10: ESR 92 H 03/24/22 01:10: Magnesium 2.2, C-React Prot Ext Range 187.00 H 03/24/22 02:18: S.aureus Protein A PCR POSITIVE H, MRSA (PCR) Negative 03/24/22 05:30: WBC 16.3 H, RBC 4.90, Hgb 14.0, Hct 44.1, MCV 90.0, MCH 28.6, MCHC 31.7 L, RDW Std Deviation 42.2, RDW Coeff of Tomy 12.8, Plt Count 239, MPV 10.1, Immature Gran % (Auto) 0.800, Neut % (Auto) 83.0 H, Lymph % (Auto) 5.0 L, [place] % (Auto) 11.0 H, Eos % (Auto) 0.1, Baso % (Auto) 0.1, Absolute Neuts (auto) 13.5 H, Absolute Lymphs (auto) 0.82 L, Nucleated RBC % 0, Differential Comment SCANNED, Diff Path Review January03/24/22 05:30: Sodium 136, Potassium 4.7, Chloride 106, Carbon Dioxide 23.0, Anion Gap 7, BUN 31 H, Creatinine 1.84 H, Estim Creat Clear Calc 44.92, Est GFR (MDRD) Af Amer 50 L, Est GFR (MDRD) Non-Af 41 L, BUN/Creatinine Ratio 16.8, Glucose 352 H, Calcium 8.8, Total Bilirubin 1.00, AST 22, ALT 43, Alkaline Phosphatase 154 H, Total Protein 6.2 L, Albumin 2.4 L, Globulin 3.8, Albumin/Globulin Ratio 0.6 L Radiology Impression Foot X-Ray 03/24/22 01:50 IMPRESSION: Air bubbles are seen in the soft tissues at the fifth toe, at the dorsal aspect of the foot and at the ankle consistent with necrotizing fasciitis. Electronically Signed: Owen Del Valle MD at 2:13 EDT , ADDENDUM: 03/24/22 0230 IMPRESSION: Air bubbles are seen in the soft tissues at the fifth toe, at the dorsal aspect of the foot and at the ankle consistent with necrotizing fasciitis. N.B. : The above Results were Read Back by Owen Del Valle MD to Toni Nelson MD, and understanding confirmed on 03/24/2022 02:23:23 (ET). Electronically Signed: Owen Del Valle MD at 2:13 EDT , Charges/Coding Visit Charges Inpatient E&M: 53233 Init Hosp L3
[2022-03-24 07:25] LABS: Bedside Glucose 325 mg/dL (74-106)
--- NOTE | 2022-03-24 08:00 | RAD_ITS ---
STUDY: Fluoroscopic spot images LEFT FOOT CLINICAL: Male, 51 years old. Incision and drainage of left foot, partial 5th ray amputation TECHNIQUE: 3 fluoroscopic view(s) of the foot. COMPARISON: March 24, 2022 left foot x-ray 0:12 seconds. FINDINGS: 3 fluoroscopic views of the left foot. There is been an amputation of the fifth digit at the mid shaft of the metatarsal. The visualized vascular calcifications. RAD/Foot 2 Views IMPRESSION: 3 fluoroscopic images showing recent amputation of the fifth digit at the metatarsal. Electronically Signed: Machelle Rios MD at 3:08 EDT ,
[2022-03-24 09:01] LABS: Hemoglobin A1c 10.5 % (3.8-5.6)
[2022-03-24] MEDS: Bupivacaine 0.25% 30 ML Vial (11:11)
[2022-03-24] MEDS: Lidocaine 1% (20 ml mdv) 20 ML Vial (11:14)
--- NOTE | 2022-03-24 12:33 | PCM.HOSP.N ---
Hospitalist Note Patient was seen and examined briefly today in the ICU, he will undergo surgery this morning for a neuropathic diabetic foot infection on his left foot. Patient told me this morning that regarding his blood sugar control, sometimes it is good, sometimes it is bad. Patient also has a history of renal transplant, nephrology has been consulted. I talked extensively with Dr. Medina the senior dynamics crm developer today concerning his care. Patient will be transferred to the PCU at the conclusion of the surgery today.
[2022-03-24] MEDS: Aspirin 81 MG TAB.CHEW PO (13:16)
[2022-03-24] MEDS: predniSONE 5 MG Tablet PO (13:16)
[2022-03-24] MEDS: Pantoprazole Sodium 20 MG Tablet PO (13:17)
[2022-03-24] MEDS: Docusate Sodium 100 MG Capsule PO (13:17)
[2022-03-24] MEDS: buPROPion (XL) 300 MG TABLET.XL PO (13:17)
[2022-03-24 13:26] LABS: Bedside Glucose 321 mg/dL (74-106)
--- NOTE | 2022-03-24 13:39 | CON.PCM_ITS ---
Assessment & Plan Assessment/Plan (1) Diabetic foot infection: (2) ILDA (acute kidney injury): (3) Acute hyperglycemia: (4) Renal transplant recipient: (5) Type 2 diabetes mellitus with diabetic polyneuropathy: QUALIFIERS: Diabetes mellitus vermin exterminator insulin use: unspecified vermin exterminator insulin use status Qualified Code(s): E11.42 - Type 2 diabetes mellitus with diabetic polyneuropathy (6) 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 exposed: (7) Chronic renal failure, stage 5: (8) Cellulitis of left lower limb: (9) Gas gangrene of foot: (10) Sepsis: (11) Noncompliance: PLAN: Plan Patient seen and evaluated bedside early this a.m. for concern of left lower extremity cellulitis with gas gangrene. There is also concern for necrotizing fasciitis Left lower extremity: Mild to moderate nonpitting edema of the left lower extremity. Left lower extremity demonstrates plantar ulceration subfifth metatarsal head with eschar covering. Periwound abscess is noted with overlying yellow discoloration of tissue. Fifth digit appears darkened, discolored, and dusky in appearance. Fifth digit is cold to palpation. There is erythema about the lateral foot extending proximally towards the ankle and medially onto the dorsum of the foot involving the fourth digit. There is overlying peeling skin consistent with previous blister dorsolateral fourth digit near the base, encompassing the fifth digit and lateral foot extending proximally to the midfoot. There is palpable crepitus about the ulcerative site extending to the base of the fifth digit. Blood culture obtained in the ED 03/24/2022 results pending. Wound culture obtained in ED 03/24/2022 results pending. Patient has a hemoglobin A1c of 10.5%. I reviewed radiographs which demonstrate the presence of soft tissue emphysema about the dorsal aspect of the fifth digit and lateral fifth digit and fifth metatarsal head. There appears to be no evidence of osteomyelitis of the fifth digit or fifth metatarsal head, however secondary to the severity of his erythema and the presence of gas I have high suspicion for osteomyelitis of the fifth digit and fifth metatarsal head. I reviewed patient's labs: WBC 16.3 with left shift, CRP 187, hemoglobin 14, sodium 136, creatinine 1.84, glucose 352. LRINEC score of 8, thus he was started on IV antibiotics Vanco/Zosyn for suspicion of necrotizing fasciitis. I discussed with patient and hospitalist plan for immediate OR debridement of left foot cellulitis with gas gangrene. I discussed with patient that he would need to undergo intermediate OR debridement of the left foot cellulitis with gas gangrene. I informed the patient that he would likely need an amputation of his fifth toe as well as a partial ray resection of the fifth metatarsal. I discussed this is a limb salvage procedure and not an elective procedure. I further discussed that I recommend proceeding with the infection management case at this time to prevent sepsis and a more proximal infection. The perioperative indications, planned procedure, benefits, risk, and anticipated healing time and management were reviewed. Patient understands and elects to proceed with the surgery at this time. No guarantees were made. Patient understands the risk and complications include but are not limited to the following: Pain, swelling, scarring, the need for further surgery, tendon contracture, transfer lesions or ulcers, arthritis, delayed wound healing or nonhealing, infection, blood clot, allergic reaction, loss of limb, loss of function, or loss of life. I discussed that an anticipated staged foot surgery is expected. The informed surgical limb and consent were signed. I answered all the patient's questions. Perioperative optimization with hospitalist is greatly appreciated and noted. Infectious disease will be consulted for antibiotic management. This is greatly appreciated. Podiatry will take the patient this a.m. for immediate OR debridement/incision and drainage of left foot cellulitis with gas gangrene, and likely amputation of the fifth digit with partial fifth ray resection of the left foot. Dr. Jimenez Medina Jr. D.P.M. [facility] [phone] Note: [employer] speech recognition it risk and assurance manager software was used to create portions of this document. Sound-alike and misspelled words, as well as other it risk and assurance manager errors may be contained in the documentation. HPI Consult Data Date of Consult: 03/24/22 HPI Narrative Reason for Consultation: Cellulitis with gas gangrene left foot HPI Narrative: ITALO BURGOS, is a 51 M who presents to [facility] ED on for with plantar ulceration to the left foot with increasing redness of his left foot. He has history of CKD stage IV status post renal transplant 1 year out on tacrolimus, chronic diastolic CHF, HTN, HLD, anxiety, depression, GERD, obesity, and DM type II with peripheral polyneuropathy. He has he is a patient of Dr. Levy's and follows with him in the wound care center. He underwent debridement of his ulcerative site in the wound care center on 03/13/2022. He informed Dr. Levy that he was going on vacation to [place] following this visit. Dr. Mariscal discussed with him that he is to continue to ambulate in a surgical shoe with his offloading padding and to not go barefoot or go into the ocean water. Patient while on vacation was walking barefoot on the beach along the water and later subsequently developed increasing redness of the left foot with chills for the last 2 days. He denies fever. He does admit to increasing pain in the left foot with a darkened discoloration overlying the ulcerative site and fifth digit. He was seen in the ED by the hospitalist and w as admitted for cellulitis of the left lower extremity. His WBC was 16.1 in the ED and trended upward to 16.3 upon admission. Radiographs were taken in the ED which were concerning for gas gangrene. He was admitted to the ICU for close monitoring as there was a concern for necrotizing fasciitis. He was empirically started on IV Vanco/Zosyn. I was consulted for OR debridement of the left foot ulcerative site with underlying abscess. [facility] Medical History Acute hypoxemic respiratory failure Acute on chronic diastolic CHF (congestive heart failure) Acute respiratory failure with hypoxia ILDA (acute kidney injury) Anasarca associated with disorder of kidney Anemia of chronic renal failure, stage 4 (severe) Anxiety and depression Atherosclerotic heart disease of chilkoot coronary artery without angina pectoris Autonomic neuropathy Blind left eye Cellulitis and abscess of right leg Chewing tobacco nicotine dependence Chronic renal failure, stage 4 (severe) Chronic ulcer of 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 COVID-19 COVID-19 Diabetes mellitus type II, uncontrolled Diabetic nephropathy Diabetic neuropathy Diabetic retinopathy Dyspnea Essential hypertension Fistula (~12/2018) GERD (gastroesophageal reflux disease) History of acute myocardial infarction History of left heart catheterization (LHC) (~06/26/11) HLD (hyperlipidemia) Hypertensive emergency Hypoglycemia Hypokalemia Hypoxemia Kidney failure Kidney stones Noncompliance Obesity (BMI 30-39.9) Pneumonia Problem with dialysis access Pulmonary edema Respiratory failure Retention, urine Right leg pain 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 Vision problems Home Medications aspirin 81 mg chewable tablet 81 mg PO DAILY@0800 heart health 08/21/18 [History Last Taken 10/06/19] insulin lispro 100 unit/mL subcutaneous pen See Protocol SQ ACHS blood sugar 10/06/19 [History Last Taken 10/06/19] insulin glargine 100 unit/mL (3 mL) subcutaneous pen 0 unit subcut QHS blood sugar 08/11/20 [History Last Taken Unknown] atorvastatin 20 mg tablet (Lipitor) 20 mg PO QHS cholesterol 09/18/21 [History Last Taken Unknown] bupropion HCl 150 mg 24 hr tablet, extended release (Wellbutrin XL) 300 mg PO DAILY mood 09/18/21 [History Last Taken Unknown] docusate sodium 100 mg capsule (Colace) 100 mg PO DAILY constipation 09/18/21 [History Last Taken Unknown] mycophenolate mofetil 250 mg capsule (CellCept) 500 mg PO BID rejection med 09/18/21 [History Last Taken Unknown] pantoprazole 20 mg tablet,delayed release (Protonix) 20 mg PO DAILY gerd 09/18/21 [History Last Taken Unknown] prednisone 5 mg tablet 5 mg PO DAILY steroid 09/18/21 [History Last Taken Unknown] tacrolimus 1 mg tablet,extended release 24 hr (Envarsus XR) 1 mg PO DAILY re jection med 09/18/21 [History Last Taken Unknown] carvedilol 25 mg tablet 25 mg PO BID 12/26/21 [History Last Taken Unknown] cholecalciferol (vitamin D3) 25 mcg (1,000 unit) capsule (Vitamin D3) 50 mcg PO QWEEK 12/26/21 [History Last Taken Unknown] gabapentin 100 mg tablet 100 mg PO QHS 12/26/21 [History Last Taken Unknown] Allergy/AdvReac Type Severity Reaction Status Date / Time No Known Allergies Allergy Verified 01/19/22 10:41 Family History Mother Heart disease Hypertension Father Cancer Brother Cancer Diabetes Sister Diabetes Surgical History History of appendectomy History of arteriovenostomy for renal dialysis (~08/2018) History of artificial lens replacement History of cholecystectomy History of eye surgery Kidney replaced by transplant Renal transplant recipient Status post insertion of dialysis catheter (~08/2018) Social History household members: spouse Smoking Status: Never smoker second hand exposure: No alcohol intake: never substance use type: does not use caffeine: No ROS Constitutional Constitutional: Reports chills; Denies body ache(s), fatigue, fever(s) or weakness Eyes Eyes: Reports blindness; Denies discharge from eye(s) or dry eyes ENT HEENT: Denies nasal congestion, nasal discharge, sinus pain or sore throat Cardiovascular Cardiovascular: Reports hypertension; Denies chest pain, claudication or cold extremities Respiratory/Chest Respiratory/Chest: Reports snoring; Denies chest congestion, chest tightness or productive cough Gastrointestinal Gastrointestinal: Denies abdominal pain, diarrhea, dysphagia, nausea or vomiting Genitourinary Genitourinary: Denies dysuria, urinary frequency, urinary hesitancy or urinary urgency Musculoskeletal Musculoskeletal: Reports numbness; Denies joint pain, joint stiffness or joint swelling Integumentary Integumentary: Reports skin ulcer; Denies jaundice, pruritus or rash Neurologic Neurologic: Denies confusion, dizziness or seizures Psychiatric Psychiatric: Reports anxiety and depression Endocrine Endocrinology: Denies cold intolerance, heat intolerance, polydipsia, polyphagia or polyuria Hematologic/Lymphatic Hematologic/Lymphatic: Denies easy bleeding or easy bruising Physical Exam Const alert, oriented x3 and no apparent distress Constitutional Narrative: Patient appears nontoxic General Appearance: anxious HEENT normocephalic Eyes General Eye: normal appearance of both eyes Neck General: normal visual inspection Lymph Lymphatic: no lymphadenopathy noted and no lymphedema noted Chest inspection of chest normal Resp normal respiratory effort Cardio regular rate and regular rhythm Extremity normal capillary refill, no joint enlargement and no calf tenderness Extremity Narrative: Mild to moderate nonpitting edema of the left lower extremity. Erythema about the lateral foot extending medially onto the dorsum of the foot involving the fourth and fifth digits with proximal extension towards the anterior ankle. Skin no rashes or lesions noted, skin turgor normal and no jaundice Wound Narrative: Left lower extremity: Mild to moderate nonpitting edema of the left lower extremity. Left lower extremity demonstrates plantar ulceration subfifth metatarsal head with eschar covering. Periwound abscess is noted with overlying yellow discoloration of tissue. Fifth digit appears darkened, discolored, and dusky in appearance. Fifth digit is cold to palpation. There is erythema about the lateral foot extending proximally towards the ankle and medially onto the dorsum of the foot involving the fourth digit. There is overlying peeling skin consistent with previous blister dorsolateral fourth digit near the base, encompassing the fifth digit and lateral foot extending proximally to the midfoot. Neuro oriented x3 and moves all extremities Lab / Micro Data Result Diagrams: 03/24/22 05:30 03/24/22 05:30 Labs: Laboratory Results - last 24 hr 03/24/22 01:10: WBC 16.1 H, RBC 5.35, Hgb 15.4, Hct 48.3, MCV 90.3, MCH 28.8, MCHC 31.9 L, RDW Std Deviation 42.1, RDW Coeff of Tomy 12.8, Plt Count 249, MPV 10.1, Immature Gran % (Auto) 0.700, Neut % (Auto) 80.9 H, Lymph % (Auto) 7.2 L, [place] % (Auto) 10.9 H, Eos % (Auto) 0.1, Baso % (Auto) 0.2, Absolute Neuts (auto) 13.0 H, Absolute Lymphs (auto) 1.16, Nucleated RBC % 0, Differential Comment SCANNED, Diff Path Review January03/24/22 01:10: Sodium 132 L, Potassium 4.7, Chloride 100, Carbon Dioxide 24.0, Anion Gap 8, BUN 33 H, Creatinine 2.26 H, Estim Creat Clear Calc 36.57, Est GFR (MDRD) Af Amer 39 L, Est GFR (MDRD) Non-Af 32 L, BUN/Creatinine Ratio 14.6, Glucose 397 H, Calcium 9.6 03/24/22 01:10: Lactic Acid 1.9 03/24/22 01:10: ESR 92 H 03/24/22 01:10: Magnesium 2.2, C-React Prot Ext Range 187.00 H 03/24/22 02:18: S.aureus Protein A PCR POSITIVE H, MRSA (PCR) Negative 03/24/22 05:30: WBC 16.3 H, RBC 4.90, Hgb 14.0, Hct 44.1, MCV 90.0, MCH 28.6, MCHC 31.7 L, RDW Std Deviation 42.2, RDW Coeff of Tomy 12.8, Plt Count 239, MPV 10.1, Immature Gran % (Auto) 0.800, Neut % (Auto) 83.0 H, Lymph % (Auto) 5.0 L, [place] % (Auto) 11.0 H, Eos % (Auto) 0.1, Baso % (Auto) 0.1, Absolute Neuts (auto) 13.5 H, Absolute Lymphs (auto) 0.82 L, Nucleated RBC % 0, Differential Comment SCANNED, Diff Path Review January foll 03/24/22 05:30: Sodium 136, Potassium 4.7, Chloride 106, Carbon Dioxide 23.0, Anion Gap 7, BUN 31 H, Creatinine 1.84 H, Estim Creat Clear Calc 44.92, Est GFR (MDRD) Af Amer 50 L, Est GFR (MDRD) Non-Af 41 L, BUN/Creatinine Ratio 16.8, Glucose 352 H, Calcium 8.8, Total Bilirubin 1.00, AST 22, ALT 43, Alkaline Phosphatase 154 H, Total Protein 6.2 L, Albumin 2.4 L, Globulin 3.8, Albumin/Globulin Ratio 0.6 L 03/24/22 05:30: Hemoglobin A1c 10.5 H 03/24/22 06:58: POC Glucose 325 H 03/24/22 13:02: POC Glucose 321 H Micro: Microbiology 03/24/22 01:27 Wound - Left Foot Gram Stain - Final Radiology Impression Foot X-Ray 03/24/22 01:50 IMPRESSION: Air bubbles are seen in the soft tissues at the fifth toe, at the dorsal aspect of the foot and at the ankle consistent with necrotizing fasciitis. Electronically Signed: Owen Del Valle MD at 2:13 EDT , ADDENDUM: 03/24/22 0386 IMPRESSION: Air bubbles are seen in the soft tissues at the fifth toe, at the dorsal aspect of the foot and at the ankle consistent with necrotizing fasciitis. N.B. : The above Results were Read Back by Owen Del Valle MD to Toni Nelson MD, and understanding confirmed on 03/24/2022 02:23:23 (ET). Electronically Signed: Owen Del Valle MD at 2:13 EDT ,
--- NOTE | 2022-03-24 14:10 | CASEMGMT ---
RN CHARLIE REAL ESTATE LEGAL SECRETARY CM to room to meet with patient for initial transition planning/care coordination assessment. NADER GUERRA introduced self and role at [facility].? Pt voices understanding and consents to assessment at this time.? Pt resting in bed in no distress at this time.? Sebastien Zavaletacy/HPOA @ bedside. Pt is A/O at this time and answers all questions appropriately.?? Care providers, pharmacy, and demographics verified/updated at this time. PCP: Dr Mcneil Specialists: [facility]-cardiology, Dr Levy-podiatry [facility]. Per Ying, pt will now be seeing Dr Medina for f/u. Pt has seen Dr Montiel--nephrology, in the past, up until he had his kidney transplant March,. He wishes to see a different investor relations specialist while @ [facility]. Dionte, recharger, made aware. Preferred Pharmacy: [facility] Retail Insurance: [employer] [facility], [facility] [employer] Prescription Benefit:? Yes Living Will/HPOA:? Pt has both LW and HPOA, who is his waqarYing. He would like to talk w/SW to complete new POA papers, as he would like to keep Ying as the primary POA, but he would like to add alternative POA. ADDY, Izzy Hanna, made aware. Pt and Ying made aware, if SW unable to meet w/him while @ [facility], this can be done as an OP. They have [employer] card w/contact info. LNOK: Ying/POA. Pt has 2 biological adult children, but he does not want them involved w/decision making. Living Arrangements: Lives w/fiance and 3 step-kids, one over 18 yo. They live in a 2-story home w/3 steps to enter. In addition, there is a full flight of stairs to the main living area and where bedroom is. Pt reports some difficulty w/stairs. Pt independent w/ADL's. Waqar does wound care/dsg changes daily. Pt able to do home mgmt tasks. Transportation: Fiance and son. DME: ?States has the following DME:?Pt has functioning glucose monitor w/supplies and has insulin and insulin supplies. He checks BS's 4 x's/day. He has a cane he does not use. [facility]. He states he only uses it when I need it and states it has been about a month since he used it last. No home O2. No walker. Pt interested in a knee scooter and a walker. Informed his insurance does not cover cost of knee scooter and made aware of locations this could be purchased. Provided w/list of local DME companies for a walker. They choose [employer]. HHC/SNF: No hx of SNF or HHC. Discussed anticipated need for 6 wks IV atb's. Pt and fiance prefer pt to return home w/HHC for IV atb administration. They are both willing to learn. Questions answered. They do not have preference of infusion company. ?They were provided with list of?HHC providers including quality and resource use data and consistent with the patient's preferred geographic region, and medical needs. They state, depending on any [id number] cost for home infusion, if it is not affordable, then pt consider SNF. Pt is interested in getting therapy as well. Pt and fiance voice no further concerns/needs at this time.? Advised them to ask for CM if any further questions/concerns/needs arise.? Voices understanding. PLAN: ?Home w/HHC: SN for IV atb's and therapy vs SNF. Pt will need walker, if able to return home. PT/OT evals pending. Apoorva BERNARDO RN CM
--- NOTE | 2022-03-24 14:31 | OP.PCM_ITS ---
Problems Associated Problem List Diagnoses (1) Gas gangrene of foot: (2) Cellulitis of left lower limb: (3) Sepsis: (4) Diabetic foot infection: (5) 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 exposed: (6) Type 2 diabetes mellitus with diabetic polyneuropathy: (7) Necrotizing fasciitis: Report of Operation Date of Procedure: 03/24/22 Pre-Operative Diagnosis: 1. Chronic diabetic ulceration with cellulitis left lower extremity and gas gangrene left foot 2. Abscess left foot 3. osteomyelitis fifth digit and fifth metatarsal left foot Post-Operative Diagnosis: Same Surgery/Procedure Performed:: 1. Incision and drainage with wide debridement of gas gangrene left foot 2. Partial fifth ray amputation left foot 3. Excision of chronic diabetic ulceration left foot 4. Application of wound VAC left foot Description of Surgical Findings:: See operative note for findings Surgeon: Jimenez Medina propulsion machinery service engineer: None Type of Anesthesia: General Specimen's removed: Deep tissue fifth metatarsal left foot Bone fifth digit and fifth metatarsal left foot Drains: None Estimated Blood Loss (mL): 25mL Description of Procedure: HPI/indication: This is a 51-year-old male who presented to the ED on 03/24/2022 with plantar ulceration to the left foot with increasing redness of his left foot. He has history of CKD stage IV post renal transplant 1 year out, DM type II with peripheral polyneuropathy, chronic diastolic CHF, HTN and HLD. He has chronic ulceration to the plantar lateral aspect of the fifth metatarsal head and fifth metatarsophalangeal joint. He was being followed in the wound care center by another provider and underwent debridement of the ulceration on 03/13/2022. Patient left town for vacation in [place] following his visit. He was instructed to remain in his surgical shoe with offloading padding and not to go barefoot or go in the ocean water. While on vacation patient reports walking barefoot on the beach along the water and subsequently developed increasing redness of the left foot with chills for the last 2 days. He admits to increasing pain in his left foot with darkened discoloration overlying the ulcerative site and fifth digit with foul odor and periwound fluctuance. He was admitted to the hospital following radiographs which demonstrated soft tissue emphysema about the ulcerative site and fifth digit. His WBC was 16.3. Hospitalist discussed the case with me concerning for gas gangrene of the left foot. He was started on IV vancomycin/Zosyn. I discussed with the patient the need for immediate OR debridement/incision and drainage of the left foot gas gangrene with excision of chronic plantar ulceration with possible partial fifth ray resection. I discussed that this is not an elective procedure and that this is a limb salvage procedure. I further discussed that I recommend proceeding with the infection management case at this time to prevent sepsis and a more proximal infection. Perioperative indications, planned procedure, benefits, risks, and anticipated healing time and management were reviewed. Patient understands and elects to proceed with the surgery at this time. No guarantees were made. Patient understands the risk and complications include but not limited to the following: Pain, swelling, scarring, the need for further surgery, tendon contracture, transfer lesions or ulcers, arthritis, delayed wound healing or nonhealing, infection, blood clot, allergic reaction, loss of limb, loss of function, loss of life. I discussed that the anticipated staged foot surgery is expected. The informed surgical limb and consent was signed. He was taken to the OR for incision and drainage of the left foot gas gangrene with excision of chronic diabetic ulceration, and likely partial fifth ray resection on 03/24/2022. Surgical procedure: Under mild sedation the patient was brought into the operating room placed on the table in the supine position. Following induction of general anesthesia a pneumatic ankle tourniquet was placed about the patient's left mid calf but not inflated. The foot was scrubbed, prepped, and draped in the usual aseptic manner. Attention was directed to the fifth metatarsal of the left foot where a plantar lateral ulceration was noted at the fifth metatarsal head with a black eschar covering and a yellowish discolored tissue with a foul odor. A linear incision was performed dorsally overlying the interspace of the fourth and fifth metatarsals and extended distally encompassing the fifth digit and chronic ulceration at the plantar lateral fifth metatarsal head. The incision was deepened utilizing sharp dissection and taken down to the fifth metatarsophalangeal joint and extending proximally to the base of the cuboid bone. The proximal phalanx and head of the fifth metatarsal were noted to be discolored, soft and spongy consistent with necrosis/osteomyelitis of the fifth metatarsal and fifth digit of the foot the digit was disarticulated and passed from the field to the table in total. During disarticulation of the digit white purulent drainage emerged from the digit with foul odor noted. The ulcerative tissue was also excised with sharp debridement. Part of the ulceration was then section and sent to microbiology for analysis. The remaining ulceration and fifth digit were sent to pathology for permanent analysis. Next, using a sagittal bone saw a through and through cut was made at the distal one third shaft of the fifth metatarsal bone and dissected free of all soft tissue attachments and passed from the field to the table in total. The cut was made through a hard section of bone to ensure clear margin of resection. The resected bone was sent to micro and pathology. Next, the surrounding tissues were debrided of all nonviable tissue utilizing a rongeur to healthy bleeding tissue. This necrotic, nonviable tissue was sent to micro and pathology for analysis. The foot was then expressed for further purulent drainage which there was determined to be a proximal source. The incision was then extended proximally to the lateral aspect of the ankle joint anteriorly. Incision was deepened utilizing sharp and blunt dissection. Site was expressed and explored which purulent drainage with expressible at a site overlying the base of the fourth metatarsal. This site was debrided of all darkened, disco lored, nonviable tissue. No further purulence was expressible proximally or medially or laterally. Tissue integrity intact and at no time was easily dissectible by finger as seen with typical necrotizing fasciitis. All tissue remaining appeared healthy and granular with bleeding noted. At this time the site was copiously irrigated with 3000 cc pulse lavage. Next, gloves were changed and sterile surgical equipment was utilized from here out. Swab cultures were obtained about the fifth metatarsal and fourth metatarsal base following irrigation and sent to micro. A second pass was made with a sagittal saw through a hard section of bone which was sent to micro and pathology is a clear margin to ensure all infected bone was removed. Next the site was flushed with yes amounts of normal sterile saline. The extensor tendons and flexor tendons of the fifth metatarsal were identified and resected as far proximally as possible. Any remaining nonviable tissue was debrided from the area. Final debridement of the site was 8.0 cm x 2.0 cm x 2.0 cm. The site was again flushed with copious amounts of normal sterile saline. No necrotic tissue was noted to be remaining at the site. All remaining tissue was noted to be healthy and granular in appearance. The incision site was closed utilizing a 3-0 Prolene. A postoperative block was then performed proximally to any erythema about the distal one third of the ankle consisting of 20 cc of a 50-50 mix of 1% lidocaine plain and 0.25% Marcaine plain. A wound VAC was then applied to the most distal portion of the fifth metatarsal stump and bridged to the dorsal foot. Wound VAC was then tested to confirm adequate seal which was noted with no leaks detected. Wound VAC was set to 125 mmHg of continuous pressure. Incision site was then dressed with Betadine soaked Adaptic, 4 x 4 gauze, Kerlix, ABD, and an Kirill wrap rolled onto the foot. The patient tolerated the procedure and anesthesia well was transported to PACU with vital signs stable and vascular status intact to the left foot. The patient was readmitted to the floor once anesthesia protocol was met. The patient will continue to receive IV antibiotics and will be followed closely by podiatry. Grafts/Implants Used: None Complications None Admit VTE Documentation VTE Present on Admission: No VTE Mechan Device Prophylaxis: SCD's VTE Pharm Prophylaxis ordered?: No Reason prophylaxis not ordered:: Procedure Not Indicated
[2022-03-24] MEDS: Morphine 2 MG/ML Syringe IV (15:23)
[2022-03-24 17:55] LABS: Bedside Glucose 348 mg/dL (74-106)
[2022-03-24] MEDS: Insulin Glargine-YFGN 100 UNIT/ML Pen 36 UNIT SC (21:06)
[2022-03-24] MEDS: Atorvastatin Calcium 20 MG Tablet PO (21:10)
[2022-03-24] MEDS: Gabapentin 100 MG Capsule PO (21:18)
[2022-03-24] MEDS: Acetaminophen 325 MG Tablet 650 MG PO (21:18)
[2022-03-25] VITALS (11 sets, daily range): BP systolic 130–152; BP diastolic 58–88; PULSE 79–87; RESP 16–20; TEMP 36.1–36.9; O2SAT 93–97
--- NOTE | 2022-03-25 | BON_PTH ---
PATIENT: ITALO BURGOS LOC: [facility] U#:[id number] AGE/SX: 51/M ROOM: [facility] RE03/24/[address]: Dr. Shruti Jara MD : 1970 BED: 1 DIS: 03/28/2022 SPEC #: [id number] RECD: 03/26/22 08:04 STATUS: ZACHARY REQ #: [id number] MARILYN: 03/25/22 00:[address]: Jimenez Medina DEPT: SURGICAL PATHOLOGY RECD BY: Randall Lema ENTERED: 03/26/22 08:45 SP TYPE: Bone OTHR DR: MD Dr. Zaida Paul MD Dr. Christine Lee, DO Dr. Joao Hayes, DO Dr. Jimenez Medina, DIXIEM Dr. John Darnell, DO MD Dr. Satish Peck MD Tissues: A - Bone of foot, NOS B - Toe, NOS C - Bone of foot, NOS D - Bone of foot, NOS Procedures: Decalcification bone/plaque Surgery Specimen Level IV Comments: @ Ordering doctor for DEC edited from to @ esperanza BENNETT at 03/26/22957 @ Ordering doctor for SUIII edited from to @ esperanza BENNETT at 03/26/22957 @ Submitting doctor edited from to DR.MMARS Vita BENNETT at 03/26/2258 HEADER OPERATION: Incision and drainage of left foot abscess/gas, partial fifth PRE-OP DIAGNOSIS: Cellulitis with abscess gangrene, osteomyelitis fifth metatarsal digit TISSUE SUBMITTED: A - Left fifth metatarsal, B - Debrided tissue left fifth metatarsal, C - Preclearance fragment fifth metatarsal, D - Clearance fragment fifth metatarsal MICROSCOPIC DIAGNOSIS A. Left fifth metatarsal, amputation: Skin and soft tissue with ulceration and associated acute and chronic inflammation. Bone with focal reactive change. See comment. B. Debrided tissue left fifth metatarsal: Acute and chronic inflammation. Vessel wall microcalcifications. Fibrinoid material. C. Preclearance fragment fifth metatarsal, biopsy: Bone with acute osteomyelitis. Calcifications of vessel rios. D. Clearance fragment bone fifth metatarsal, biopsy: No evidence of osteomyelitis. AM:sai 03/29/2022 COMMENT A. Reparative change may represent resolved osteomyelitis. Clinical correlation is suggested. MICROSCOPIC DESCRIPTION Slides are reviewed. GROSS DESCRIPTION A - Received in fixative is one container labeled with the patient's name and designated left fifth metatarsal. The specimen consists of a toe with attached bone, skin and soft tissue measuring 6 cm in length and 3.5 cm in diameter. The skin shows sloughing. The specimen is grayish-bucio in color. Warranty Manager longitudinal section is submitted in two cassettes after decalcification. B - Received in fixative is one container labeled with the patient's name and designated debrided tissue left fifth metatarsal. The specimen consists of multiple irregular fragments of dark bucio soft tissue that in aggregate measure 5 x 5 x 1 cm. Warranty Manager sections are submitted in one cassette. C - Received in fixative is one container labeled with the patient's name and designated preclearance fragment fifth metatarsal. The specimen consists of an irregular fragment of bucio bone measuring 2.2 x 1.2 x 0.7 cm. The specimen is sectioned and totally submitted in one cassette after decalcification. D - Received in fixative is one container labeled with the patient's name and designated clearance fragment fifth metatarsal. The specimen consists of an irregular fragment of bucio bone measuring 1.5 x 1 x 1 cm. The specimen is sectioned and totally submitted in one cassette after decalcification. / AM:sai 03/26/2022 TC:2 [facility]: [id number] x4, [id number] x3
[2022-03-25] MEDS: 0.9% Normal Saline 1,000 ML 150 ML IV ×2 (01:52→07:57)
[2022-03-25] MEDS: Insulin Lispro 100 UNIT/ML INSULN.PEN SC ×4 (06:27→21:23)
[2022-03-25] MEDS: oxyCODONE 5 MG Tablet PO ×3 (06:36→15:14)
[2022-03-25] MEDS: Acetaminophen 325 MG Tablet 650 MG PO ×3 (06:36→15:14)
[2022-03-25 06:51] LABS: Bedside Glucose 312 mg/dL (74-106)
[2022-03-25] MEDS: Aspirin 81 MG TAB.CHEW PO (08:13)
[2022-03-25] MEDS: predniSONE 5 MG Tablet PO (08:13)
[2022-03-25] MEDS: 0.9% Saline Lock 10 ML Syringe IV ×3 (08:27→16:58)
[2022-03-25] MEDS: Pantoprazole Sodium 20 MG Tablet PO (11:11)
[2022-03-25] MEDS: Docusate Sodium 100 MG Capsule PO (11:11)
[2022-03-25] MEDS: buPROPion (XL) 300 MG TABLET.XL PO (11:11)
[2022-03-25] MEDS: Carvedilol 25 MG Tablet PO ×2 (11:22→21:22)
[2022-03-25] MEDS: Insulin Lispro 100 UNIT/ML INSULN.PEN 10 UNIT SC ×2 (11:26→17:05)
--- NOTE | 2022-03-25 11:35 | PCM.PN.HOSP ---
Subjective Subjective Patient was seen and examined today, his blood sugars are not under good control, his hemoglobin A1c was 10.5. I discussed with the patient the need to have his blood sugars under better control as an outpatient. Objective Data Objective Data Vital Signs: Vital Signs Temp Pulse Resp BP Pulse Ox O2 Del Method O2 Flow Rate 96.9 F L 86 20 H 144/58 H 93 Room Air 2 03/25/22 06:17 03/25/22 06:17 03/25/22 06:17 03/25/22 06:17 03/25/22 09:58 03/25/22 09:58 03/24/22 12:00 Oxygen Flow Rate (L/min) 2 Oxygen Delivery Method Room Air Weight: 95.5 kg Body Mass Index (BMI) 31.7 Intake & Output: Intake and Output for Last 24 Hours 03/23/22 03/24/22 03/25/22 23:59 23:59 23:59 Intake Total 4187.5 / 4187.5 2982.5 / 2982.5 Output Total 1925 / 1925 0 / 0 Balance 2262.5 / 2262.5 2982.5 / 2982.5 Lab / Micro Data Result Diagrams: 03/24/22 05:30 03/24/22 05:30 Labs: Laboratory Results - last 24 hr 03/24/22 13:02: POC Glucose 321 H 03/24/22 17:33: POC Glucose 348 H 03/25/22 06:24: POC Glucose 312 H Micro: Microbiology 03/24/22 01:27 Wound - Left Foot Gram Stain - Final Radiography Diagnostic Testing: Radiology Impression Foot X-Ray 03/24/22 08:00 IMPRESSION: 3 fluoroscopic images showing recent amputation of the fifth digit at the metatarsal. Electronically Signed: Machelle Rios MD at 3:08 EDT , Physical Exam Const alert, oriented x3 and no apparent distress General Appearance: cooperative, well kempt and well developed Orientation / Consciousness: awake, oriented to person, oriented to place and oriented to time HEENT normocephalic, head/scalp atraumatic and moist oral mucous membranes Eyes PERRL, EOMs intact bilaterally and conjunctivae normal Neck supple, no JVD, thyroid normal and no carotid bruits General: trachea midline Resp normal respiratory effort, no retractions, no use of accessory muscles and clear to auscultation bilaterally Auscultation: Negative for rales, rhonchi or wheezes Cardio regular rate, regular rhythm, S1 normal heart sound, S2 normal heart sound, no murmurs, no rub and no gallops GI normal to inspection, nondistended, normoactive bowel sounds, soft to palpation, non-tender and non-distended Extremity Extremity Narrative: Patient's left lower extremity was wrapped with surgical dressing, there appeared to be a wound VAC in place. Skin no rashes or lesions noted General Skin Exam: no breakdown Neuro oriented x3, CN's II-XII intact bilaterally, moves all extremities, no focal motor deficits and no sensory deficits noted Sensorium / Orientation: awake, alert, oriented to person, oriented to place and oriented to time Speech: speech normal Psych affect normal Assessment & Plan Assessment/Plan (1) Cellulitis of left lower limb: PLAN: Plan 1. Cellulitis of the left foot secondary to neuropathy of type 2 [id number] will remain on present antibiotic podiatry is participating in his care #2 uncontrolled type 2 diabetes-I will adjust the patient's insulin, he will need follow-up as an outpatient to ensure good blood sugar control #3 neuropathy of diabetes-complicates care, management, recovery, and prognosis #4 hyperlipidemia-patient is on a statin #4 chronic kidney disease stage IIIb-continue present care, patient was taken off IV fluids today, continue to monitor labs #5 atherosclerotic heart disease-patient is to remain on his present medications #6 chronic depression-patient is on Wellbutrin #7 past history of renal transplant-patient will remain on his antirejection drugs Charges/Coding Visit Charges Inpatient E&M: 26024 Subs Hosp L2
--- NOTE | 2022-03-25 12:52 | PCM.PROGNOTE ---
Subjective Subjective This is a 51-year-old male who was seen bedside this AM status post I&D gas gangrene with partial fifth ray amputation of the left foot. He is seen resting with the foot elevated eating lunch with his . He did admit to some overnight pain but states it is well controlled now. He states that he is feeling better today. He denies any constitutional symptoms. He denies any calf pain. He has no further complaints today. Objective Data Objective Data Vital Signs: Vital Signs Temp Pulse Resp BP Pulse Ox O2 Del Method O2 Flow Rate 97.8 F 85 18 147/81 H 97 Room Air 2 03/25/22 12:40 03/25/22 12:40 03/25/22 12:40 03/25/22 12:40 03/25/22 12:40 03/25/22 12:40 03/24/22 12:00 Oxygen Flow Rate (L/min) 2 Oxygen Delivery Method Room Air Weight: 95.5 kg Body Mass Index (BMI) 31.7 Intake & Output: Intake and Output for Last 24 Hours 03/23/22 03/24/22 03/25/22 23:59 23:59 23:59 Intake Total 4187.5 / 4187.5 2982.5 / 2982.5 Output Total 1925 / 1925 0 / 0 Balance 2262.5 / 2262.5 2982.5 / 2982.5 Lab / Micro Data Result Diagrams: 03/25/22 13:32 03/25/22 13:32 Labs: Laboratory Results - last 24 hr 03/24/22 13:02: POC Glucose 321 H 03/24/22 17:33: POC Glucose 348 H 03/25/22 06:24: POC Glucose 312 H Micro: Microbiology 03/24/22 Unknown Incision/Surgical Site Wound Culture - Preliminary No growth-Final to follow 03/24/22 Unknown Bone - 5th Toe Wound Culture - Preliminary No growth-Final to follow 03/24/22 Unknown Bone - 5th Toe Wound Culture - Preliminary No growth-Final to follow 03/24/22 Unknown Bone - 5th Toe Wound Culture - Preliminary Mixed Gram Positive Organisms 03/24/22 01:27 Wound - Left Foot Gram Stain - Final 03/24/22 01:27 Wound - Left Foot Wound Culture - Preliminary Mixed Gram Positive Organisms Radiography Diagnostic Testing: Radiology Impression Foot X-Ray 03/24/22 08:00 IMPRESSION: 3 fluoroscopic images showing recent amputation of the fifth digit at the metatarsal. Electronically Signed: Machelle Rios MD at 3:08 EDT , Physical Exam Const alert, oriented x3 and no apparent distress Constitutional Narrative: Patient appears nontoxic HEENT normocephalic Eyes General Eye: normal appearance of both eyes Neck General: normal visual inspection Lymph Lymphatic: no lymphadenopathy noted and no lymphedema noted Chest inspection of chest normal Resp normal respiratory effort Cardio regular rate and regular rhythm Extremity normal capillary refill, no joint enlargement and no calf tenderness Extremity Narrative: Mild to moderate nonpitting edema of the left lower extremity. Erythema about the lateral foot extending proximally to the anterior aspect of the ankle. Skin no rashes or lesions noted, skin turgor normal and no jaundice Wound Narrative: Left lower extremity: Mild to moderate nonpitting edema of the left lower extremity. Amputation fifth digit noted. Wound VAC intact at the most distal aspect of the incision site. Sutures intact to the dorsal lateral foot. There is some erythema about the lateral foot extending proximally towards the ankle. No expressible purulent drainage or malodor. Neuro oriented x3 and moves all extremities Assessment & Plan Assessment/Plan (1) Gas gangrene of foot: (2) Cellulitis of left lower limb: (3) Sepsis: (4) Diabetic foot infection: (5) 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 exposed: (6) Type 2 diabetes mellitus with diabetic polyneuropathy: QUALIFIERS: Diabetes mellitus jail insulin use: unspecified jail insulin use status Qualified Code(s): E11.42 - Type 2 diabetes mellitus with diabetic polyneuropathy (7) Necrotizing fasciitis: PLAN: Plan Patient seen and evaluated bedside this a.m. s/p I&D gas gangrene left foot with partial fifth ray amputation and excision of chronic diabetic ulceration. POV #1 (DOS: 03/24/2022) POD #1 Left lower extremity: Mild to moderate nonpitting edema of the left lower extremity. There remains some erythema about the lateral foot extending proximally to the ankle, this is improving versus prior to surgical intervention. Fifth digit amputation noted. Wound VAC intact at the most distal aspect of the incision site with no leaks detected. Sutures intact. No expressible purulent drainage or malodor on examination today. Wound VAC canister demonstrates very little collection/drainage of blood. Blood culture obtained in the ED 03/24/2022 results gram-positive cocci in chains, anaerobic bottle positive. Wound culture obtained in ED 03/24/2022 results mixed gram-positive organisms, staph aureus protein A PCR positive. Patient has a hemoglobin A1c of 10.5%. Infection: There remains some erythema about the lateral foot extending proximally ankle, this is improving versus prior to surgical intervention. During surgical intervention the tissues demonstrated normal integrity and were not easily dissectible through fascial planes with a finger as seen with typical necrotizing fasciitis cases. He did however have soft tissue crepitus with foul odor consistent with a gas gangrene, confirmed by radiograph on 03/24/2022. 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 WBC 16.3 with left shift prior to surgical intervention. WBC currently 12.7. Patient on IV antibiotics Vanco/Zosyn. Sx Cultures: Culture of wound/ulceration 03/24/2022 demonstrates mixed gram-positive organisms. Bone culture fifth toe/fifth metatarsal demonstrates mixed gram-positive organisms. Cultures post lavage demonstrate no growth. Bone culture post lavage clearance fragment demonstrates no preliminary growth. Dressings: Wound VAC intact to the distal portion of the incision site with no leaks detected. VAC will be changed 03/26/2022. Incision site dressed with Betadine soaked Adaptic, 4 x 4 gauze, Kerlix, ABD, and Kirill wrap rolled onto the foot. Dressings to be changed daily. Continue to elevate the left lower extremity at all times of rest. Patient is to remain nonweightbearing to the left lower extremity with assistance of a walker Hospitalist/medicine team following for medical management, this is greatly appreciated. Infectious disease will be consulted for antibiotic management. Their input is greatly appreciated. Podiatry will continue to follow patient closely while in house. Patient to continue IV antibiotics. Pending his discharge patient will be sent home with a [facility] wound VAC and would need visiting nursing to assist with dressing changes. He is to follow-up with me in the wound care center for continued postsurgical care. Please do not hesitate to call with any questions or concerns. Dr. Jimenez Medina Jr. [facility] [phone] Note: [employer] speech recognition bookkeeping assistant software was used to create portions of this document. Sound-alike and misspelled words, as well as other bookkeeping assistant errors may be contained in the documentation.
[2022-03-25 13:38] LABS: Absolute Lymphocyte Count 0.59 X10^3/uL (0.83-4.51); Absolute Neutrophil Count 11.1 X10^3/uL (2.0-7.7); Basophil# 0.03 X10^3/uL; Basophil% 0.2 % (0-1); Eosinophil# 0.06 X10^3/uL; Eosinophils% 0.5 % (0-5); Hematocrit 43.4 % (40-54); Hemoglobin 13.7 g/dL (13.0-16.5); Lymphocyte # 0.59 X10^3/ul (0.83-4.51); Lymphocyte % 4.7 % (19-41); Mean Corp Hgb Conc 31.6 g/dL (32-36); Mean Corpuscular Hgb 28.7 pg (27.0-32.0); Mean Platelet Vol. 9.9 fl (6.2-12.0); Monocyte# 0.83 X10^3/uL; Monocyte% 6.6 % (0-10); NRBC Flagged by Analyzer 0 % (0-5); Neutrophil # 11.06 X10^3/uL (2.7-7.7); Neutrophil % 87.3 % (47-70); POSITIVE DIFFERENTIAL YES; Platelet Count 248 K/mm3 (150-450); RBC Distribution Width CV 13.2 % (11.6-14.6); Red Blood Count 4.77 M/mm3 (4.6-6.2); White Blood Count 12.7 K/mm3 (4.4-11.0)
[2022-03-25 13:40] LABS: Differential Indicated SCAN CRITERIA MET
[2022-03-25 13:55] LABS: ALB/GLOB Ratio 0.6 RATIO (0.9-2.4); AST(SGOT) 36 U/L (15-37); Alanine Aminotransfer ALT/SGPT 52 U/L (16-61); Albumin, Serum 2.2 g/dL (3.2-5.0); Alkaline Phosphatase 163 U/L (45-117); Anion Gap 5 (5-15); BUN 25 mg/dL (7-18); BUN/Creat Ratio 14.9 RATIO (10-20); Calcium,Total 8.6 mg/dL (8.5-10.1); Chloride 114 mmol/L (98-107); Creatinine, Serum 1.68 mg/dL (0.70-1.30); EST Glomerular Filtration Rate 46 mL/min (>60); Est Glom Filt Rate - Afr Amer 55 mL/min (>60); Globulin 3.9 g/dL (2.2-4.2); Glucose 273 mg/dL (74-106); Potassium 4.4 mmol/L (3.5-5.1); Protein, Total 6.1 g/dL (6.4-8.2); Sodium Level 141 mmol/L (136-145)
[2022-03-25 14:00] LABS: Bedside Glucose 371 mg/dL (74-106)
[2022-03-25] MEDS: Morphine 2 MG/ML Syringe IV (16:59)
[2022-03-25 17:35] LABS: Bedside Glucose 310 mg/dL (74-106)
[2022-03-25] MEDS: Atorvastatin Calcium 20 MG Tablet PO (21:18)
[2022-03-25] MEDS: Gabapentin 100 MG Capsule PO (21:22)
[2022-03-25] MEDS: Insulin Glargine-YFGN 100 UNIT/ML Pen 35 UNIT SC (21:24)
[2022-03-25 21:30] LABS: Bedside Glucose 269 mg/dL (74-106)
[2022-03-26] VITALS (9 sets, daily range): BP systolic 142–183; BP diastolic 74–91; PULSE 81–93; RESP 16–20; TEMP 36.2–36.8; O2SAT 93–96
[2022-03-26 03:23] LABS: Vancomycin, Trough Level 10.4 ug/mL (5.0-15.0)
--- NOTE | 2022-03-26 03:44 | PCM.RX.CS ---
Consult Pharmacy has been consulted to manage selected antiobiotic: Vancomycin Type of Consult: Follow-up Labs: Sodium 141 mmol/L (136-145) 03/25/22 13:32 Potassium 4.4 mmol/L (3.5-5.1) 03/25/22 13:32 Chloride 114 mmol/L (98-107) H 03/25/22 13:32 Carbon Dioxide 22.0 mmol/L (21.0-32.0) 03/25/22 13:32 Anion Gap 5 (5-15) 03/25/22 13:32 BUN 25 mg/dL (7-18) H 03/25/22 13:32 Creatinine 1.68 mg/dL (0.70-1.30) H 03/25/22 13:32 Est GFR (MDRD) Af Amer 55 mL/min (>60) L 03/25/22 13:32 Est GFR (MDRD) Non-Af 46 mL/min (>60) L 03/25/22 13:32 BUN/Creatinine Ratio 14.9 RATIO (10-20) 03/25/22 13:32 Glucose 273 mg/dL (74-106) H 03/25/22 13:32 Vancomycin Trough 10.4 ug/mL (5.0-15.0) 03/26/22 02:04 Microbiology: Microbiology 03/24/22 01:15 Blood Culture (Wb) - Left Hand Blood Culture - Preliminary 03/24/22 01:10 Blood Culture (Wb) - Anticubital Left Blood Culture - Preliminary 03/24/22 Unknown Incision/Surgical Site Gram Stain - Final 03/24/22 Unknown Incision/Surgical Site Wound Culture - Preliminary No growth-Final to follow 03/24/22 Unknown Bone - 5th Toe Gram Stain - Final 03/24/22 Unknown Bone - 5th Toe Wound Culture - Preliminary No growth-Final to follow 03/24/22 Unknown Bone - 5th Toe Gram Stain - Final 03/24/22 Unknown Bone - 5th Toe Wound Culture - Preliminary No growth-Final to follow 03/24/22 Unknown Tissue - 5th Metatarsal Bone Gram Stain - Final 03/24/22 Unknown Bone - 5th Toe Gram Stain - Final 03/24/22 Unknown Bone - 5th Toe Wound Culture - Preliminary Mixed Gram Positive Organisms 03/24/22 01:27 Wound - Left Foot Gram Stain - Final 07/16/22 01:27 Wound - Left Foot Wound Culture - Preliminary Mixed Gram Positive Organisms Goal Trough: 15-20 mcg/mL Pharmacy Plan for Drug Dosing: Pharmacy Service will continue to monitor and adjust dosing as required. TROUGH 10.0 @ 22.5HRS. CRCl IMPROVED TO 57 FROM 32.8 AT START OF VANCO THERAPY. DUE TO LOW TROUGH AND INCREASED CRCl, START VANCO 1GM Q12H AND FOLLOW UP TROUGH 03/27 PRIOR TO 1530 DOSE Follow-Up Labs: Trough Vancomycin Labs to be done on [date and time ordered]: 03/27 @ 1500
[2022-03-26 05:07] LABS: Absolute Lymphocyte Count 0.94 X10^3/uL (0.83-4.51); Absolute Neutrophil Count 8.9 X10^3/uL (2.0-7.7); Basophil# 0.03 X10^3/uL; Basophil% 0.3 % (0-1); Eosinophil# 0.17 X10^3/uL; Eosinophils% 1.5 % (0-5); Hematocrit 40.3 % (40-54); Hemoglobin 12.3 g/dL (13.0-16.5); Lymphocyte # 0.94 X10^3/ul (0.83-4.51); Lymphocyte % 8.5 % (19-41); Mean Corp Hgb Conc 30.5 g/dL (32-36); Mean Corpuscular Hgb 28.6 pg (27.0-32.0); Mean Corpuscular Volume 93.7 fL (80-94); Mean Platelet Vol. 10.2 fl (6.2-12.0); Monocyte# 0.92 X10^3/uL; Monocyte% 8.4 % (0-10); NRBC Flagged by Analyzer 0 % (0-5); Neutrophil # 8.87 X10^3/uL (2.7-7.7); Neutrophil % 80.6 % (47-70); Platelet Count 274 K/mm3 (150-450); RBC Distribution Width CV 13.2 % (11.6-14.6); RBC Distribution Width SD 45.8 fl (35.1-43.9)
[2022-03-26 05:33] LABS: ALB/GLOB Ratio 0.5 RATIO (0.9-2.4); AST(SGOT) 35 U/L (15-37); Alanine Aminotransfer ALT/SGPT 57 U/L (16-61); Alkaline Phosphatase 175 U/L (45-117); Anion Gap 6 (5-15); BUN 20 mg/dL (7-18); BUN/Creat Ratio 13.7 RATIO (10-20); Calcium,Total 8.6 mg/dL (8.5-10.1); Chloride 111 mmol/L (98-107); Creatinine, Serum 1.46 mg/dL (0.70-1.30); EST Glomerular Filtration Rate 54 mL/min (>60); Est Glom Filt Rate - Afr Amer 65 mL/min (>60); Estimated Creatinine Clearance 56.61 ml/min; Globulin 3.8 g/dL (2.2-4.2); Glucose 235 mg/dL (74-106); Potassium 4.5 mmol/L (3.5-5.1); Protein, Total 5.8 g/dL (6.4-8.2); Sodium Level 138 mmol/L (136-145)
[2022-03-26] MEDS: Insulin Lispro 100 UNIT/ML INSULN.PEN 10 UNIT SC ×3 (08:16→16:25)
[2022-03-26] MEDS: Insulin Lispro 100 UNIT/ML INSULN.PEN SC ×4 (08:16→22:01)
[2022-03-26 08:55] LABS: Bedside Glucose 197 mg/dL (74-106)
--- NOTE | 2022-03-26 09:17 | PCM.CONS.R ---
Assessment & Plan Assessment/Plan (1) Gas gangrene of foot: PLAN: antibx (2) Cellulitis of left lower limb: PLAN: antibx s/p left 5th toe amputation (3) Necrotizing fasciitis: (4) Diabetic foot infection: PLAN: podiatry mgmt (5) Renal transplant recipient: PLAN: continue chronic IS therapy (6) ILDA (acute kidney injury): PLAN: likely prerenal. 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 ? He recently had surgical debridement on 03/13 by podiatry and was on oral antibiotics. He then went on vacation to [place] for a week and came back home on 03/24 with worsening wound infection. He denied getting his foot wet and wore shoes. He admitted to chills, decreased appetite. Denied fever, nausea, vomiting, diarrhea. Sugars elevated at home. Consulted for kidney transplant management. He has a history of ESRD due to diabetes, hypertension. He has neuropathy, depression, anxiety. He is s/p cadaver kidney transplant on 03/09/22 at [facility]. Laboratory on admission showed white blood cell count of 16,000.? ESR 92,CRP 187, MRSA positive. He is on antibiotics for necrotizing fasciitis, cellulitis of left lower limb s/p left toe amputation with wound vac applied. Creatinine of 2.26 on admit improved to 1.46 today.? He is on prednisone 5mg daily, cellcept and tacrolimus. PFSH Medical History Acute hypoxemic respiratory failure Acute on chronic diastolic CHF (congestive heart failure) Acute respiratory failure with hypoxia ILDA (acute kidney injury) Anasarca associated with disorder of kidney Anemia of chronic renal failure, stage 4 (severe) Anxiety and depression Atherosclerotic heart disease of [place] coronary artery without angina pectoris Autonomic neuropathy Blind left eye Cellulitis and abscess of right leg Chewing tobacco nicotine dependence Chronic renal failure, stage 4 (severe) Chronic ulcer of 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 COVID-19 COVID-19 Diabetes mellitus type II, uncontrolled Diabetic nephropathy Diabetic neuropathy Diabetic retinopathy Dyspnea Essential hypertension Fistula (~12/2018) GERD (gastroesophageal reflux disease) History of acute myocardial infarction History of left heart catheterization (LHC) (~06/26/11) HLD (hyperlipidemia) Hypertensive emergency Hypoglycemia Hypokalemia Hypoxemia Kidney failure Kidney stones Noncompliance Obesity (BMI 30-39.9) Pneumonia Problem with dialysis access Pulmonary edema Respiratory failure Retention, urine Right leg pain 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 Vision problems Home Medications aspirin 81 mg chewable tablet 81 mg PO DAILY@0800 heart health 08/21/18 [History Last Taken 10/06/19] insulin lispro 100 unit/mL subcutaneous pen See Protocol SQ ACHS blood sugar 10/06/19 [History Last Taken 10/06/19] insulin glargine 100 unit/mL (3 mL) subcutaneous pen 0 unit subcut QHS blood sugar 08/11/20 [History Last Taken Unknown] atorvastatin 20 mg tablet (Lipitor) 20 mg PO QHS cholesterol 09/18/21 [History Last Taken Unknown] bupropion HCl 150 mg 24 hr tablet, extended release (Wellbutrin XL) 300 mg PO DAILY mood 09/18/21 [History Last Taken Unknown] docusate sodium 100 mg capsule (Colace) 100 mg PO DAILY constipation 09/18/21 [History Last Taken Unknown] mycophenolate mofetil 250 mg capsule (CellCept) 500 mg PO BID rejection med 09/18/21 [History Last Taken Unknown] pantoprazole 20 mg tablet,delayed release (Protonix) 20 mg PO DAILY gerd 09/18/21 [History Last Taken Unknown] prednisone 5 mg tablet 5 mg PO DAILY steroid 09/18/21 [History Last Taken Unknown] tacrolimus 1 mg tablet,extended release 24 hr (Envarsus XR) 1 mg PO DAILY rejection med 09/18/21 [History Last Taken Unknown] carvedilol 25 mg tablet 25 mg PO BID 12/26/21 [History Last Taken Unknown] cholecalciferol (vitamin D3) 25 mcg (1,000 unit) capsule (Vitamin D3) 50 mcg PO QWEEK 12/26/21 [History Last Taken Unknown] gabapentin 100 mg tablet 100 mg PO QHS 12/26/21 [History Last Taken Unknown] Allergy/AdvReac Type Severity Reaction Status Date / Time No Known Allergies Allergy Verified 01/19/22 10:41 Family History Mother Heart disease Hypertension Father Cancer Brother Cancer Diabetes Sister Diabetes Surgical History History of appendectomy History of arteriovenostomy for renal dialysis (~08/2018) History of artificial lens replacement History of cholecystectomy History of eye surgery Kidney replaced by transplant Renal transplant recipient Status post insertion of dialysis catheter (~08/2018) Social History household members: spouse Smoking Status: Never smoker second hand exposure: No alcohol intake: never substance use type: does not use caffeine: No ROS Constitutional Constitutional: Reports chills ENT HEENT: Denies nasal congestion Cardiovascular Cardiovascular: Denies chest pain Respiratory/Chest Respiratory/Chest: Denies dry cough or dyspnea on exertion Gastrointestinal Gastrointestinal: Reports anorexia; Denies abdominal pain or diarrhea Genitourinary Genitourinary: Denies change in urinary stream, dysuria, flank pain or hematuria Integumentary Integumentary: Reports lesions and other Details: left foot/toe erythema, wound, left 5th toe amputation Neurologic Neurologic: Denies focal weakness or numbness Psychiatric Psychiatric: Reports anxiety and depression Physical Exam Const alert and oriented x3 General Appearance: well developed HEENT normocephalic Eyes EOMs intact bilaterally Neck no JVD Resp clear to auscultation bilaterally Cardio regular rate GI non-tender and non-distended Auscultation: normoactive bowel sounds Narrative: denied tenderness over allograft Extremity General Extremity: AV fistula Skin General Skin Exam: erythema Wounds: wounds noted other Wound Narrative: left foot dressing, wound vac, dry toe wound 2nd DIP, dystrophic toe nails Neuro CN's II-XII intact bilaterally Neuro Narrative: decreased sensation legs Sensorium / Orientation: awake and alert Motor Exam: no tremor Psych cooperative Lab / Micro Data Result Diagrams: 03/26/22 04:00 03/26/22 04:00 Labs: Laboratory Results - last 24 hr 03/25/22 11:17: POC Glucose 371 H 03/25/22 13:32: WBC 12.7 H, RBC 4.77, Hgb 13.7, Hct 43.4, MCV 91.0, MCH 28.7, MCHC 31.6 L, RDW Std Deviation 44.0 H, RDW Coeff of Tomy 13.2, Plt Count 248, MPV 9.9, Immature Gran % (Auto) 0.700, Neut % (Auto) 87.3 H, Lymph % (Auto) 4.7 L, [place] % (Auto) 6.6, Eos % (Auto) 0.5, Baso % (Auto) 0.2, Absolute Neuts (auto) 11.1 H, Absolute Lymphs (auto) 0.59 L, Nucleated RBC % 0 03/25/22 13:32: Sodium 141, Potassium 4.4, Chloride 114 H, Carbon Dioxide 22.0, Anion Gap 5, BUN 25 H, Creatinine 1.68 H, Estim Creat Clear Calc 49.20, Est GFR (MDRD) Af Amer 55 L, Est GFR (MDRD) Non-Af 46 L, BUN/Creatinine Ratio 14.9, Glucose 273 H, Calcium 8.6, Total Bilirubin 0.70, AST 36, ALT 52, Alkaline Phosphatase 163 H, Total Protein 6.1 L, Albumin 2.2 L, Globulin 3.9, Albumin/Globulin Ratio 0.6 L 03/25/22 16:50: POC Glucose 310 H 03/25/22 21:08: POC Glucose 269 H 03/26/22 02:04: Vancomycin Trough 10.4 03/26/22 04:00: WBC 11.0, RBC 4.30 L, Hgb 12.3 L, Hct 40.3, MCV 93.7, MCH 28.6, MCHC 30.5 L, RDW Std Deviation 45.8 H, RDW Coeff of Tomy 13.2, Plt Count 274, MPV 10.2, Immature Gran % (Auto) 0.700, Neut % (Auto) 80.6 H, Lymph % (Auto) 8.5 L, [place] % (Auto) 8.4, Eos % (Auto) 1.5, Baso % (Auto) 0.3, Absolute Neuts (auto) 8.9 H, Absolute Lymphs (auto) 0.94, Nucleated RBC % 0 03/26/22 04:00: Sodium 138, Potassium 4.5, Chloride 111 H, Carbon Dioxide 21.0, Anion Gap 6, BUN 20 H, Creatinine 1.46 H, Estim Creat Clear Calc 56.61, Est GFR (MDRD) Af Amer 65, Est GFR (MDRD) Non-Af 54 L, BUN/Creatinine Ratio 13.7, Glucose 235 H, Calcium 8.6, Total Bilirubin 0.60, AST 35, ALT 57, Alkaline Phosphatase 175 H, Total Protein 5.8 L, Albumin 2.0 L, Globulin 3.8, Albumin/Globulin Ratio 0.5 L 03/26/22 08:14: POC Glucose 197 H Micro: Microbiology 03/24/22 Unknown Bone - 5th Toe Gram Stain - Final 03/24/22 Unknown Bone - 5th Toe Wound Culture - Preliminary No growth-Final to follow 03/24/22 Unknown Bone - 5th Toe Anaerobic Culture - Preliminary No growth in 48 hours. 03/24/22 Unknown Bone - 5th Toe Gram Stain - Final 03/24/22 Unknown Bone - 5th Toe Wound Culture - Preliminary Mixed Gram Positive Organisms 03/24/22 Unknown Bone - 5th Toe Anaerobic Culture - Preliminary Checking for anaerobes, further studies to follow. 03/24/22 Unknown Bone - 5th Toe Gram Stain - Final 03/24/22 Unknown Bone - 5th Toe Wound Culture - Preliminary Gram positive organism 03/24/22 Unknown Tissue - 5th Metatarsal Bone Gram Stain - Final 03/24/22 Unknown Tissue - 5th Metatarsal Bone Wound Culture - Final Enterococcus faecalis 03/24/22 01:27 Wound - Left Foot Gram Stain - Final 03/24/22 01:27 Wound - Left Foot Wound Culture - Preliminary Staphylococcus aureus Coag Negative Staph 03/24/22 Unknown Incision/Surgical Site Gram Stain - Final 03/24/22 Unknown Incision/Surgical Site Wound Culture - Preliminary No growth-Final to follow 03/24/22 Unknown Incision/Surgical Site Anaerobic Culture - Preliminary No growth in 48 hours. 03/24/22 01:15 Blood Culture (Wb) - Left Hand Blood Culture - Preliminary 03/24/22 01:10 Blood Culture (Wb) - Anticubital Left Blood Culture - Preliminary
[2022-03-26] MEDS: Insulin Glargine-YFGN 100 UNIT/ML Pen 35 UNIT SC ×2 (10:11→22:01)
[2022-03-26] MEDS: Docusate Sodium 100 MG Capsule PO (10:12)
[2022-03-26] MEDS: Aspirin 81 MG TAB.CHEW PO (10:12)
[2022-03-26] MEDS: buPROPion (XL) 300 MG TABLET.XL PO (10:12)
[2022-03-26] MEDS: predniSONE 5 MG Tablet PO (10:12)
[2022-03-26] MEDS: Pantoprazole Sodium 20 MG Tablet PO (10:12)
[2022-03-26] MEDS: Carvedilol 25 MG Tablet PO ×2 (11:06→21:57)
[2022-03-26 11:30] LABS: Bedside Glucose 234 mg/dL (74-106)
[2022-03-26 12:01] LABS: Pathologist Review Reviewed
[2022-03-26 12:01] LABS: Pathologist Review Reviewed
--- NOTE | 2022-03-26 12:50 | PCM.PROGNOTE ---
Subjective Subjective This is a 51-year-old male who was seen bedside this AM status post I&D gas gangrene with partial fifth ray amputation of the left foot.? He is seen resting with the foot elevated eating lunch.? He denies any pain today.? He states that he is feeling well.? He denies any constitutional symptoms.? He denies any calf pain.? He has no further complaints today. Objective Data Objective Data Vital Signs: Vital Signs Temp Pulse Resp BP Pulse Ox O2 Del Method O2 Flow Rate 97.5 F L 93 18 142/75 H 95 Room Air 2 03/26/22 09:00 03/26/22 09:00 03/26/22 09:00 03/26/22 09:00 03/26/22 09:00 03/26/22 09:00 03/24/22 12:00 Oxygen Flow Rate (L/min) 2 Oxygen Delivery Method Room Air Weight: 97.6 kg Body Mass Index (BMI) 31.7 Intake & Output: Intake and Output for Last 24 Hours 03/24/22 03/25/22 03/26/22 23:59 23:59 23:59 Intake Total 4187.5 / 4187.5 3592.5 / 3952.5 1470 / 1470 Output Total 1925 / 1925 0 / 500 1700 / 1700 Balance 2262.5 / 2262.5 3592.5 / 3452.5 -230 / -230 Lab / Micro Data Result Diagrams: 03/26/22 04:00 03/26/22 04:00 Labs: Laboratory Results - last 24 hr 03/24/22 01:10: Diff Path Review Reviewed 03/24/22 05:30: Diff Path Review Reviewed 03/25/22 11:17: POC Glucose 371 H 03/25/22 13:32: WBC 12.7 H, RBC 4.77, Hgb 13.7, Hct 43.4, MCV 91.0, MCH 28.7, MCHC 31.6 L, RDW Std Deviation 44.0 H, RDW Coeff of Tomy 13.2, Plt Count 248, MPV 9.9, Immature Gran % (Auto) 0.700, Neut % (Auto) 87.3 H, Lymph % (Auto) 4.7 L, [place] % (Auto) 6.6, Eos % (Auto) 0.5, Baso % (Auto) 0.2, Absolute Neuts (auto) 11.1 H, Absolute Lymphs (auto) 0.59 L, Nucleated RBC % 0 03/25/22 13:32: Sodium 141, Potassium 4.4, Chloride 114 H, Carbon Dioxide 22.0, Anion Gap 5, BUN 25 H, Creatinine 1.68 H, Estim Creat Clear Calc 49.20, Est GFR (MDRD) Af Amer 55 L, Est GFR (MDRD) Non-Af 46 L, BUN/Creatinine Ratio 14.9, Glucose 273 H, Calcium 8.6, Total Bilirubin 0.70, AST 36, ALT 52, Alkaline Phosphatase 163 H, Total Protein 6.1 L, Albumin 2.2 L, Globulin 3.9, Albumin/Globulin Ratio 0.6 L 03/25/22 16:50: POC Glucose 310 H 03/25/22 21:08: POC Glucose 269 H 03/26/22 02:04: Vancomycin Trough 10.4 03/26/22 04:00: WBC 11.0, RBC 4.30 L, Hgb 12.3 L, Hct 40.3, MCV 93.7, MCH 28.6, MCHC 30.5 L, RDW Std Deviation 45.8 H, RDW Coeff of Tomy 13.2, Plt Count 274, MPV 10.2, Immature Gran % (Auto) 0.700, Neut % (Auto) 80.6 H, Lymph % (Auto) 8.5 L, [place] % (Auto) 8.4, Eos % (Auto) 1.5, Baso % (Auto) 0.3, Absolute Neuts (auto) 8.9 H, Absolute Lymphs (auto) 0.94, Nucleated RBC % 0 03/26/22 04:00: Sodium 138, Potassium 4.5, Chloride 111 H, Carbon Dioxide 21.0, Anion Gap 6, BUN 20 H, Creatinine 1.46 H, Estim Creat Clear Calc 56.61, Est GFR (MDRD) Af Amer 65, Est GFR (MDRD) Non-Af 54 L, BUN/Creatinine Ratio 13.7, Glucose 235 H, Calcium 8.6, Total Bilirubin 0.60, AST 35, ALT 57, Alkaline Phosphatase 175 H, Total Protein 5.8 L, Albumin 2.0 L, Globulin 3.8, Albumin/Globulin Ratio 0.5 L 03/26/22 08:14: POC Glucose 197 H 03/26/22 11:07: POC Glucose 234 H Micro: Microbiology 03/24/22 Unknown Bone - 5th Toe Gram Stain - Final 03/24/22 Unknown Bone - 5th Toe Wound Culture - Preliminary Gram Positive Cocci 03/24/22 01:27 Wound - Left Foot Gram Stain - Final 03/24/22 01:27 Wound - Left Foot Wound Culture - Preliminary Staphylococcus aureus GPC Poss Enterococcus sp Coag Negative Staph Gram positive hector 03/24/22 Unknown Bone - 5th Toe Gram Stain - Final 03/24/22 Unknown Bone - 5th Toe Wound Culture - Preliminary Staphylococcus species GPC Poss Enterococcus sp Gram positive hector 03/24/22 Unknown Bone - 5th Toe Anaerobic Culture - Preliminary Checking for anaerobes, further studies to follow. 03/24/22 Unknown Bone - 5th Toe Gram Stain - Final 03/24/22 Unknown Bone - 5th Toe Wound Culture - Preliminary No growth-Final to follow 03/24/22 Unknown Bone - 5th Toe Anaerobic Culture - Preliminary No growth in 48 hours. 03/24/22 Unknown Tissue - 5th Metatarsal Bone Gram Stain - Final 03/24/22 Unknown Tissue - 5th Metatarsal Bone Wound Culture - Final Enterococcus faecalis 03/24/22 Unknown Incision/Surgical Site Gram Stain - Final 03/24/22 Unknown Incision/Surgical Site Wound Culture - Preliminary No growth-Final to follow 03/24/22 Unknown Incision/Surgical Site Anaerobic Culture - Preliminary No growth in 48 hours. 03/24/22 01:15 Blood Culture (Wb) - Left Hand Blood Culture - Preliminary 03/24/22 01:10 Blood Culture (Wb) - Anticubital Left Blood Culture - Preliminary Physical Exam Const alert, oriented x3 and no apparent distress Constitutional Narrative: Patient appears nontoxic General Appearance: anxious HEENT normocephalic Eyes General Eye: normal appearance of both eyes Neck General: normal visual inspection Lymph Lymphatic: no lymphadenopathy noted and no lymphedema noted Chest inspection of chest normal Resp normal respiratory effort Cardio regular rate and regular rhythm Extremity normal capillary refill, no joint enlargement and no calf tenderness Extremity Narrative: Mild to moderate nonpitting edema of the left lower extremity. Erythema about the lateral foot extending proximally to the anterior aspect of the ankle. Skin no rashes or lesions noted, skin turgor normal and no jaundice Wound Narrative: Left lower extremity: Mild to moderate nonpitting edema of the left lower extremity. Amputation fifth digit noted. Wound VAC intact at the most distal aspect of the incision site. Sutures intact to the dorsal lateral foot. There is some erythema about the lateral foot extending proximally towards the ankle. No expressible purulent drainage or malodor. 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 s/p I&D gas gangrene left foot with partial fifth ray amputation and excision of chronic diabetic ulceration. POV #2 (DOS: 03/24/2022) POD #2 Left lower extremity: Mild to moderate nonpitting edema of the left lower extremity. Erythema continues to decrease. Fifth digit amputation noted. Wound VAC intact at the most distal aspect of the incision site with no leaks detected. Sutures intact. No expressible purulent drainage or malodor on examination today. Wound VAC canister demonstrates very little collection/drainage of blood. Blood culture obtained in the ED 03/24/2022 results gram-positive cocci in chains, anaerobic bottle positive. Wound culture obtained in ED 03/24/2022 results mixed gram-positive organisms, staph aureus protein A PCR positive. Patient has a hemoglobin A1c of 10.5%. Infection: Erythema continues to decrease. During surgical intervention 03/24/22 the tissues demonstrated normal integrity and were not easily dissectible through fascial planes with a finger as seen with typical necrotizing fasciitis cases. He did however have soft tissue crepitus with foul odor consistent with a gas gangrene, confirmed by radiograph on 03/24/2022. 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 WBC 16.3 with left shift prior to surgical intervention. WBC currently 11 and trending down.. Patient on IV antibiotics Vanco/Zosyn. Sx Cultures: Culture of wound/ulceration 03/24/2022 demonstrates mixed gram-positive organisms. Bone culture fifth toe/fifth metatarsal demonstrates mixed gram-positive organisms. Cultures post lavage demonstrate no growth. Bone culture post lavage clearance fragment demonstrates no preliminary growth. Dressings: Wound VAC changed today. Wound VAC intact to the distal portion of the incision site with no leaks detected. VAC will be again changed 03/29/2022. Incision site dressed with Betadine soaked Adaptic, 4 x 4 gauze, Kerlix, ABD, and Kirill wrap rolled onto the foot. Dressings to be changed daily. Continue to elevate the left lower extremity at all times of rest. Patient is to remain nonweightbearing to the left lower extremity with assistance of a walker Hospitalist/medicine team following for medical management, this is greatly appreciated. Infectious disease following for antibiotic management. Their input is greatly appreciated. Podiatry will continue to follow patient closely while in house. Patient to continue IV antibiotics. Pending his discharge patient will be sent home with a [facility] wound VAC and would need visiting nursing to assist with dressing changes. He is to follow-up with me in the wound care center for continued postsurgical care. Please do not hesitate to call with any questions or concerns. Dr. Jimenez Medina Jr. D.P.M. [facility] [phone] Note: [employer] speech recognition maintenance of way superintendent software was used to create portions of this document. Sound-alike and misspelled words, as well as other maintenance of way superintendent errors may be contained in the documentation.
--- NOTE | 2022-03-26 12:50 | WOUNDNOTE ---
wound photo: left foot
--- NOTE | 2022-03-26 12:51 | WOUNDNOTE ---
wound photo: left foot
--- NOTE | 2022-03-26 13:58 | PN.HOSP_ITS ---
Subjective Subjective Patient seen and examined. He had no active complaints. He was comfortably eating breakfast. Review of systems otherwise negative. Objective Data Objective Data Vital Signs: Vital Signs Temp Pulse Resp BP Pulse Ox O2 Del Method O2 Flow Rate 97.5 F L 93 18 142/75 H 95 Room Air 2 03/26/22 09:00 03/26/22 09:00 03/26/22 09:00 03/26/22 09:00 03/26/22 09:00 03/26/22 09:00 03/24/22 12:00 Oxygen Flow Rate (L/min) 2 Oxygen Delivery Method Room Air Weight: 215 lb 2.738 oz Body Mass Index (BMI) 31.7 Intake & Output: Intake and Output for Last 24 Hours 03/24/22 03/25/22 03/26/22 23:59 23:59 23:59 Intake Total 4187.5 / 4187.5 3592.5 / 3952.5 1470 / 1470 Output Total 1925 / 1925 0 / 500 1700 / 1700 Balance 2262.5 / 2262.5 3592.5 / 3452.5 -230 / -230 Lab / Micro Data Result Diagrams: 03/26/22 04:00 03/26/22 04:00 Labs: Laboratory Results - last 24 hr 03/24/22 01:10: Diff Path Review Reviewed 03/24/22 05:30: Diff Path Review Reviewed 03/25/22 11:17: POC Glucose 371 H 03/25/22 16:50: POC Glucose 310 H 03/25/22 21:08: POC Glucose 269 H 03/26/22 02:04: Vancomycin Trough 10.4 03/26/22 04:00: WBC 11.0, RBC 4.30 L, Hgb 12.3 L, Hct 40.3, MCV 93.7, MCH 28.6, MCHC 30.5 L, RDW Std Deviation 45.8 H, RDW Coeff of Tomy 13.2, Plt Count 274, MPV 10.2, Immature Gran % (Auto) 0.700, Neut % (Auto) 80.6 H, Lymph % (Auto) 8.5 L, [place] % (Auto) 8.4, Eos % (Auto) 1.5, Baso % (Auto) 0.3, Absolute Neuts (auto) 8.9 H, Absolute Lymphs (auto) 0.94, Nucleated RBC % 0 03/26/22 04:00: Sodium 138, Potassium 4.5, Chloride 111 H, Carbon Dioxide 21.0, Anion Gap 6, BUN 20 H, Creatinine 1.46 H, Estim Creat Clear Calc 56.61, Est GFR (MDRD) Af Amer 65, Est GFR (MDRD) Non-Af 54 L, BUN/Creatinine Ratio 13.7, Glucose 235 H, Calcium 8.6, Total Bilirubin 0.60, AST 35, ALT 57, Alkaline Phosphatase 175 H, Total Protein 5.8 L, Albumin 2.0 L, Globulin 3.8, Albumin/Globulin Ratio 0.5 L 03/26/22 08:14: POC Glucose 197 H 03/26/22 11:07: POC Glucose 234 H Micro: Microbiology 03/24/22 Unknown Bone - 5th Toe Gram Stain - Final 03/24/22 Unknown Bone - 5th Toe Wound Culture - Preliminary Gram Positive Cocci 03/24/22 01:27 Wound - Left Foot Gram Stain - Final 03/24/22 01:27 Wound - Left Foot Wound Culture - Preliminary Staphylococcus aureus GPC Poss Enterococcus sp Coag Negative Staph Gram positive hector 03/24/22 Unknown Bone - 5th Toe Gram Stain - Final 03/24/22 Unknown Bone - 5th Toe Wound Culture - Preliminary Staphylococcus species GPC Poss Enterococcus sp Gram positive hector 03/24/22 Unknown Bone - 5th Toe Anaerobic Culture - Preliminary Checking for anaerobes, further studies to follow. 03/24/22 Unknown Bone - 5th Toe Gram Stain - Final 03/24/22 Unknown Bone - 5th Toe Wound Culture - Preliminary No growth-Final to follow 03/24/22 Unknown Bone - 5th Toe Anaerobic Culture - Preliminary No growth in 48 hours. 03/24/22 Unknown Tissue - 5th Metatarsal Bone Gram Stain - Final 03/24/22 Unknown Tissue - 5th Metatarsal Bone Wound Culture - Final Enterococcus faecalis 03/24/22 Unknown Incision/Surgical Site Gram Stain - Final 03/24/22 Unknown Incision/Surgical Site Wound Culture - Preliminary No growth-Final to follow 03/24/22 Unknown Incision/Surgical Site Anaerobic Culture - Preliminary No growth in 48 hours. 03/24/22 01:15 Blood Culture (Wb) - Left Hand Blood Culture - Preliminary 03/24/22 01:10 Blood Culture (Wb) - Anticubital Left Blood Culture - Preliminary Physical Exam Const alert and no apparent distress HEENT moist oral mucous membranes and oropharynx normal Eyes PERRL and EOMs intact bilaterally Neck no lymphadenopathy and supple Resp normal respiratory effort, no retractions, no use of accessory muscles and clear to auscultation bilaterally Cardio regular rate, regular rhythm, S2 normal heart sound and no murmurs GI normal to inspection, nondistended, normoactive bowel sounds, soft to palpation, non-tender and non-distended Extremity Extremity Narrative: left foot wrapped in bandage. Wound vac in place Neuro oriented x3, CN's II-XII intact bilaterally, moves all extremities and no focal motor deficits Sensorium / Orientation: awake and alert Psych affect normal Assessment & Plan Assessment/Plan (1) Gas gangrene of foot: (2) Necrotizing fasciitis: (3) Cellulitis of left lower limb: PLAN: Plan #Necrotising fasciitis of the LLE * has wound vac in place. S/p partial fifth ray amputation of the left foot * podiatry on board * Blood cultures grew gram-positive cocci in chains and staff aureus PCR was positive. * On IV vancomycin and Zosyn * ID also consulted. * #Type 2 diabetes mellitus with neuropathy * poorly controlled. A1C is 10.5 * counseled about compliance with meds * on lantus 30 units daily. ISS. Accuchecks ACHS * on gabapentin * #Hyperlipidemia: On statin #ILDA on CKD stage IIIb: * Stable. Creatinine is down to 1.46 from 2.26 couple of days ago. Has a hi story of renal transplant. * On Envarsus and mycophenolate as well as prednisone * Nephrology on board. #Depression: On Wellbutrin DVT prophylaxis: will start lovenox, renally dosed Charges/Coding Visit Charges Inpatient E&M: 51443 Subs Hosp L2
--- NOTE | 2022-03-26 14:31 | PCM.CONS.GEN ---
Assessment & Plan Assessment/Plan (1) Gas gangrene of foot: (2) Necrotizing fasciitis: PLAN: L foot nec fasc [place] with h[place]o DM neuropathy and renal transplant a year ago. Infection complicated by GPC bacteremia. Now s/p OR 03/24/[address] Medina for I&D. Wound clean today. Surg cx with enterococcus, GPR, staph. 03/13 wound cx with mssa, ecoli, actinomyces, strep, and corynebacteria. On vanc/zosyn. Will check repeat bcx. ILDA improved. Wbc improved. A1c over 10. Encouraged him to get covid booster. Will follow, thank you. (3) Diabetic foot infection: (4) Renal transplant recipient: (5) ILDA (acute kidney injury): (6) Bacteremia: HPI Consult Data Date of Consult: 03/26/22 HPI Narrative Reason for Consultation: osteomyelitis HPI Narrative: ITALO BURGOS, is a 51 M with kidney transplant a year ago at [facility], denies any infectious complications, recently came off prophylaxis. On tacro/cellcept/pred for immunosuppression. Follows with wound care, was on po abx s/p recent I&D. Went to [place], was walking in the water, 03/22 noticed foul odor and worsening wound. Developed fever and chills. No pain in foot. 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 Admitted on vanc/zosyn, taken to ED emergently 03/24 for I&D of nec fasc. Feeling ok today. Full ROS performed and neg except as noted above. [facility] Medical History Acute hypoxemic respiratory failure Acute on chronic diastolic CHF (congestive heart failure) Acute respiratory failure with hypoxia ILDA (acute kidney injury) Anasarca associated with disorder of kidney Anemia of chronic renal failure, stage 4 (severe) Anxiety and depression Atherosclerotic heart disease of [place] coronary artery without angina pectoris Autonomic neuropathy Blind left eye Cellulitis and abscess of right leg Chewing tobacco nicotine dependence Chronic renal failure, stage 4 (severe) Chronic ulcer of 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 COVID-19 COVID-19 Diabetes mellitus type II, uncontrolled Diabetic nephropathy Diabetic neuropathy Diabetic retinopathy Dyspnea Essential hypertension Fistula (~12/2018) GERD (gastroesophageal reflux disease) History of acute myocardial infarction History of left heart catheterization (LHC) (~06/26/11) HLD (hyperlipidemia) Hypertensive emergency Hypoglycemia Hypokalemia Hypoxemia Kidney failure Kidney stones Noncompliance Obesity (BMI 30-39.9) Pneumonia Problem with dialysis access Pulmonary edema Respiratory failure Retention, urine Right leg pain 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 Vision problems Home Medications aspirin 81 mg chewable tablet 81 mg PO DAILY@0800 heart health 08/21/18 [History Last Taken 10/06/19] insulin lispro 100 unit/mL subcutaneous pen See Protocol SQ ACHS blood sugar 10/06/19 [History Last Taken 10/06/19] insulin glargine 100 unit/mL (3 mL) subcutaneous pen 0 unit subcut QHS blood sugar 08/11/20 [History Last Taken Unknown] atorvastatin 20 mg tablet (Lipitor) 20 mg PO QHS cholesterol 09/18/21 [History Last Taken Unknown] bupropion HCl 150 mg 24 hr tablet, extended release (Wellbutrin XL) 300 mg PO DAILY mood 09/18/21 [History Last Taken Unknown] docusate sodium 100 mg capsule (Colace) 100 mg PO DAILY constipation 09/18/21 [History Last Taken Unknown] mycophenolate mofetil 250 mg capsule (CellCept) 500 mg PO BID rejection med 09/18/21 [History Last Taken Unknown] pantoprazole 20 mg tablet,delayed release (Protonix) 20 mg PO DAILY gerd 09/18/21 [History Last Taken Unknown] prednisone 5 mg tablet 5 mg PO DAILY steroid 09/18/21 [History Last Taken Unknown] tacrolimus 1 mg tablet,extended release 24 hr (Envarsus XR) 1 mg PO DAILY rejection med 09/18/21 [History Last Taken Unknown] carvedilol 25 mg tablet 25 mg PO BID 12/26/21 [History Last Taken Unknown] cholecalciferol (vitamin D3) 25 mcg (1,000 unit) capsule (Vitamin D3) 50 mcg PO QWEEK 12/26/21 [History Last Taken Unknown] gabapentin 100 mg tablet 100 mg PO QHS 12/26/21 [History Last Taken Unknown] Allergy/AdvReac Type Severity Reaction Status Date / Time No Known Allergies Allergy Verified 01/19/22 10:41 Family History Mother Heart disease Hypertension Father Cancer Brother Cancer Diabetes Sister Diabetes Surgical History History of appendectomy History of arteriovenostomy for renal dialysis (~08/2018) History of artificial lens replacement History of cholecystectomy History of eye surgery Kidney replaced by transplant Renal transplant recipient Status post insertion of dialysis catheter (~08/2018) Social History household members: spouse Smoking Status: Never smoker second hand exposure: No alcohol intake: never substance use type: does not use caffeine: No Physical Exam Const alert, oriented x3 and no apparent distress General Appearance: cooperative HEENT normocephalic and head/scalp atraumatic Eyes PERRL and EOMs intact bilaterally Neck supple and No nodes Resp normal air movement and clear to auscultation bilaterally Cardio regular rate and regular rhythm GI soft to palpation, non-tender and non-distended Extremity General Extremity: Negative for edema Skin Skin Narrative: reviewed photos L foot Neuro CN's II-XII intact bilaterally Lab / Micro Data Attestation: I reviewed the patient's lab results. Result Diagrams: 03/26/22 04:00 03/26/22 04:00 Labs: Laboratory Results - last 24 hr 03/24/22 01:10: Diff Path Review Reviewed 03/24/22 05:30: Diff Path Review Reviewed 03/25/22 16:50: POC Glucose 310 H 03/25/22 21:08: POC Glucose 269 H 03/26/22 02:04: Vancomycin Trough 10.4 03/26/22 04:00: WBC 11.0, RBC 4.30 L, Hgb 12.3 L, Hct 40.3, MCV 93.7, MCH 28.6, MCHC 30.5 L, RDW Std Deviation 45.8 H, RDW Coeff of Tomy 13.2, Plt Count 274, MPV 10.2, Immature Gran % (Auto) 0.700, Neut % (Auto) 80.6 H, Lymph % (Auto) 8.5 L, [place] % (Auto) 8.4, Eos % (Auto) 1.5, Baso % (Auto) 0.3, Absolute Neuts (auto) 8.9 H, Absolute Lymphs (auto) 0.94, Nucleated RBC % 0 03/26/22 04:00: Sodium 138, Potassium 4.5, Chloride 111 H, Carbon Dioxide 21.0, Anion Gap 6, BUN 20 H, Creatinine 1.46 H, Estim Creat Clear Calc 56.61, Est GFR (MDRD) Af Amer 65, Est GFR (MDRD) Non-Af 54 L, BUN/Creatinine Ratio 13.7, Glucose 235 H, Calcium 8.6, Total Bilirubin 0.60, AST 35, ALT 57, Alkaline Phosphatase 175 H, Total Protein 5.8 L, Albumin 2.0 L, Globulin 3.8, Albumin/Globulin Ratio 0.5 L 03/26/22 08:14: POC Glucose 197 H 03/26/22 11:07: POC Glucose 234 H Micro: Microbiology 03/24/22 Unknown Bone - 5th Toe Gram Stain - Final 03/24/22 Unknown Bone - 5th Toe Wound Culture - Preliminary Gram Positive Cocci 03/24/22 01:27 Wound - Left Foot Gram Stain - Final 03/24/22 01:27 Wound - Left Foot Wound Culture - Preliminary Staphylococcus aureus GPC Poss Enterococcus sp Coag Negative Staph Gram positive hector 03/24/22 Unknown Bone - 5th Toe Gram Stain - Final 03/24/22 Unknown Bone - 5th Toe Wound Culture - Preliminary Staphylococcus species GPC Poss Enterococcus sp Gram positive hector 03/24/22 Unknown Bone - 5th Toe Anaerobic Culture - Preliminary Checking for anaerobes, further studies to follow. 03/24/22 Unknown Bone - 5th Toe Gram Stain - Final 03/24/22 Unknown Bone - 5th Toe Wound Culture - Preliminary No growth-Final to follow 03/24/22 Unknown Bone - 5th Toe Anaerobic Culture - Preliminary No growth in 48 hours. 03/24/22 Unknown Tissue - 5th Metatarsal Bone Gram Stain - Final 03/24/22 Unknown Tissue - 5th Metatarsal Bone Wound Culture - Final Enterococcus faecalis 03/24/22 Unknown Incision/Surgical Site Gram Stain - Final 03/24/22 Unknown Incision/Surgical Site Wound Culture - Preliminary No growth-Final to follow 03/24/22 Unknown Incision/Surgical Site Anaerobic Culture - Preliminary No growth in 48 hours. 03/24/22 01:15 Blood Culture (Wb) - Left Hand Blood Culture - Preliminary 03/24/22 01:10 Blood Culture (Wb) - Anticubital Left Blood Culture - Preliminary
[2022-03-26 15:53] LABS: Vancomycin, Trough Level 14.3 ug/mL (5.0-15.0)
--- NOTE | 2022-03-26 15:55 | CASEMGMT ---
ANDER GUERRA in to discuss discharge plans with patient. ANDER GUERRA discussed need for HHC for wound vac care and possible IV ATBs. Patient voiced understanding. Patient states he has not reviewed HHC list and will review with . ANDER GUERRA requested patient provide top 3 choices for HHC. Patient voiced understanding. ANDER GUERRA will follow-up with patient in morning for preferences. Patient had no further questions or concerns at discharge.
[2022-03-26] MEDS: Vancomycin IV 1,000 MG/200 ML BAG 200 MG IV (16:19)
--- NOTE | 2022-03-26 16:27 | CHAPLAIN ---
Type of Pastoral Visit _x__ Initial Visit ___ Follow-up Visit ___ On-call Visit ___ General Patient Visit ___ Spiritual Assessment ___ Family Conference ___ Bereavement ___ Rapid Response ___ Code Blue ___ Other (describe below) Pastoral Care Referral From _x__ Patient ___ Family ___ Nurse ___ Physician ___ Animal Husbandry Manager ___ Furniture Delivery Driver ___ Other (describe below) Sacrament/Intervention _x__ Active listening ___ Anointing ___ Jehovah'S Witness ___ Bereavement ___ Communion ___ [place] exploration ___ _x__ Life review _x__ Prayer ___ Reconciliation ___ Sacrament of Sick _x__ Supportive presence ___ Wedding ___ Other (describe below) Pastoral Comments patient remembers this transmitter engineer in charge; pt gives report on toe removal; pt expresses feelings and admits to lots of tears this morning; pt states that I just had to give it to God and that now he is feeling better; pt is talkative and welcoming of spiritual care encouragement and prayer; pt is a member of a local confucianist but acknowledges that he has not been going much since COVID due to concerns for his health; pt relates how he got the call for a kidney transplant and gives credit to God as answers to prayer sooner than I expected
[2022-03-26 17:31] LABS: Bedside Glucose 297 mg/dL (74-106)
[2022-03-26] MEDS: Atorvastatin Calcium 20 MG Tablet PO (21:57)
[2022-03-26] MEDS: Gabapentin 100 MG Capsule PO (21:57)
[2022-03-26 23:26] LABS: Bedside Glucose 323 mg/dL (74-106)
[2022-03-27] VITALS (8 sets, daily range): BP systolic 119–197; BP diastolic 69–77; PULSE 85–92; RESP 16–18; TEMP 36.3–36.7; O2SAT 96–99
[2022-03-27] MEDS: Vancomycin IV 1,000 MG/200 ML BAG 200 MG IV ×2 (03:39→14:50)
[2022-03-27 05:17] LABS: Absolute Lymphocyte Count 0.95 X10^3/uL (0.83-4.51); Absolute Neutrophil Count 7.8 X10^3/uL (2.0-7.7); Basophil# 0.02 X10^3/uL; Basophil% 0.2 % (0-1); Eosinophil# 0.13 X10^3/uL; Eosinophils% 1.3 % (0-5); Hematocrit 41.5 % (40-54); Hemoglobin 13.5 g/dL (13.0-16.5); Lymphocyte # 0.95 X10^3/ul (0.83-4.51); Lymphocyte % 9.6 % (19-41); Mean Corp Hgb Conc 32.5 g/dL (32-36); Mean Corpuscular Hgb 28.8 pg (27.0-32.0); Mean Corpuscular Volume 88.7 fL (80-94); Mean Platelet Vol. 10.1 fl (6.2-12.0); Monocyte# 0.92 X10^3/uL; Monocyte% 9.3 % (0-10); NRBC Flagged by Analyzer 0 % (0-5); Neutrophil # 7.81 X10^3/uL (2.7-7.7); Neutrophil % 78.8 % (47-70); Platelet Count 248 K/mm3 (150-450); RBC Distribution Width SD 41.7 fl (35.1-43.9); Red Blood Count 4.68 M/mm3 (4.6-6.2); White Blood Count 9.9 K/mm3 (4.4-11.0)
[2022-03-27 05:40] LABS: Anion Gap 6 (5-15); BUN 13 mg/dL (7-18); BUN/Creat Ratio 10.5 RATIO (10-20); Chloride 107 mmol/L (98-107); Creatinine, Serum 1.24 mg/dL (0.70-1.30); EST Glomerular Filtration Rate 65 mL/min (>60); Est Glom Filt Rate - Afr Amer 78 mL/min (>60); Estimated Creatinine Clearance 66.65 ml/min; Glucose 219 mg/dL (74-106); Potassium 4.1 mmol/L (3.5-5.1); Sodium Level 138 mmol/L (136-145)
[2022-03-27] MEDS: Enoxaparin 40 MG/0.4 ML Syringe SC (05:48)
[2022-03-27] MEDS: Insulin Lispro 100 UNIT/ML INSULN.PEN SC ×4 (06:58→21:08)
[2022-03-27] MEDS: Insulin Lispro 100 UNIT/ML INSULN.PEN 10 UNIT SC ×3 (08:00→15:37)
[2022-03-27] MEDS: Pantoprazole Sodium 20 MG Tablet PO (09:53)
[2022-03-27] MEDS: Docusate Sodium 100 MG Capsule PO (09:53)
[2022-03-27] MEDS: Carvedilol 25 MG Tablet PO ×2 (09:53→21:08)
[2022-03-27] MEDS: predniSONE 5 MG Tablet PO (09:53)
[2022-03-27] MEDS: Aspirin 81 MG TAB.CHEW PO (09:53)
[2022-03-27] MEDS: buPROPion (XL) 300 MG TABLET.XL PO (09:53)
[2022-03-27] MEDS: Insulin Glargine-YFGN 100 UNIT/ML Pen 35 UNIT SC ×2 (09:57→21:08)
--- NOTE | 2022-03-27 10:14 | PCM.PN.ID ---
Physical Exam Narrative Feeling ok, some itching at top of foot. Denies n/v/d. No fever. Const alert and no apparent distress Resp normal air movement and clear to auscultation bilaterally Cardio regular rate and regular rhythm GI soft to palpation, non-tender and non-distended Skin Skin Narrative: reviewed wound photos ID ID: Route of nutrition/ use of supplements: [] Nutritional Intake: [] IV Site: [] Sky Catheter: [] Assessment & Plan Assessment/Plan (1) Gas gangrene of foot: (2) Necrotizing fasciitis: PLAN: L foot nec fasc [place] h[place]o DM neuropathy and renal transplant a year ago. Infection complicated by anaerobic GPC bacteremia. Now s/p OR 03/24/[address] Medina for I&D. Wound doing well. Surg cx with enterococcus x2, GPR, CoNS. 03/13 wound cx with mssa, ecoli, actinomyces, strep, and corynebacteria. On vanc/zosyn. ILDA improved. Wbc improved. A1c over 10. Encouraged him to get covid booster. Will narrow abx to vanc/unasyn, ordering picc, plan on 6 weeks iv abx with stop date 05/05 given his immunosuppression and proximal purulence reported in OR. Wrote rx, d/w rehabilitation case coordinator, ID followup in 2 weeks. Will follow (3) Diabetic foot infection: (4) Renal transplant recipient: (5) ILDA (acute kidney injury): (6) Bacteremia:
--- NOTE | 2022-03-27 10:46 | PN_ITS ---
Progress Note renal fxn continues to improve. Will need PICC for detention antibiotics. Assessment & Plan Assessment/Plan (1) Gas gangrene of foot: (2) Necrotizing fasciitis: PLAN: detention iv antibx, PICC line placement. ID, poldiatry mgmt (3) Diabetic foot infection: PLAN: left foot, leukocytosis improving on antibx (4) Renal transplant recipient: PLAN: Creatinine improved to 1.24
[2022-03-27 11:00] LABS: Bedside Glucose 194 mg/dL (74-106)
[2022-03-27 11:20] LABS: Bedside Glucose 190 mg/dL (74-106)
[2022-03-27 11:25] LABS: Bedside Glucose 191 mg/dL (74-106)
--- NOTE | 2022-03-27 11:29 | CASEMGMT ---
Addendum entered by Kathy Castellano 03/27/22 15:06: Vanco trough drawn today. Results faxed to [facility] Addendum entered by Kathy Castellano 03/27/22 14:42: Script for FWW has been faxed to [facility] [place] [place] and walker has been delivered to pt's room. Dr Jara and RN, Zander, notified of [facility] set up w/SOC slated for tomorrow @ 1230. Addendum entered by Kathy Castellano 03/27/22 13:53: Spoke w/Trina @ [facility] [place] [place]. She was made aware of need for walker prior to discharge tomorrow AM. Script to be faxed to [facility] [place] [place]. Trina states they will deliver walker to pt's room today. Addendum entered by Kathy Castellano 03/27/22 13:32: Maranda @ [facility] aware SOC slated for tomorrow w/Vanco being due @ 1230. She states atb's to be delivered to pt's home prior to then Addendum entered by Kathy Castellano 03/27/22 13:10: Scripts for IV atb's faxed to [facility]. PICC insertion documentation faxed to [facility]. Addendum entered by Kathy Castellano 03/27/22 12:10: Pt notified [facility] able to accept w/SOC slated for tomorrow @ 12:30. Questions answered. Pt also made of appt scheduled @ [facility] this @ 8:30 AM and updated that he will need to go to Wound Clinic every for appt/wound vac changes and that [facility] will do them on Mondays. He voices understanding. He states Laura, sig other, will be able to take him to his appts. He is aware walker to be delivered to his room prior to discharge. He states he would also like a knee scooter. He was made aware his insurance does not cover for a knee scooter and made aware of locations these can either be purchased from or rented. He voices understanding. Maranda @ [facility] aware [facility] orders are for PT/OT also. Per Maranda @ [facility], pt will be covered @ 100% for atb's and tubing/supplies. Pt made aware. Addendum entered by Kathy Castellano 03/27/22 11:56: Per Maranda @ [facility], referral packet was received and they are reviewing and checking on insurance benefits. She was made aware SOC slated for tomorrow, 03/28, @ 12:30 PM. Original Note: ANDER GUERRA NOTE: Pt to get PICC today and per Dr Jara, will be medically ready for discharge today. ANDER GUERRA to room. Pt states they have reviewed HHC list and [facility] is 1st choice. ANDER GUERRA placed C order and call placed to Maranda [facility]/referral made. They are able to accept pt and requested IV Vanc infusion times to be adjusted so can be done @ home @ 1000 and 2200. Call placed to Christy [facility] pharmacist to discuss IV Vanc administration times and request for time adjustments for [facility]. Per Christy, IV Vanc to be given today @ 1230 and then ton, 03/28 @ 0130. Unasyn to be given as scheduled on NOV. Pt to receive IV Unasyn tomorrow 03/28 @ 0600. Pt to be discharged Wed AM after Unasyn infused. [facility] SOC slated for Sat 12:30 and they will infuse next dose of IV Vanc at that time and then 2 PM dose of Unasyn. Per wound nurseMelissa, Wound vac changes are ordered for 2 x's week (Saturday and ), per Dr Medina request. Pt to go to Wound Center every and to have wound vac dsg change there. [facility] will only need to do wound vac changes on Mondays. Maranda @ [facility] aware. Referral packet faxed to [facility]. Apoorva BERNARDO RN, CM
--- NOTE | 2022-03-27 11:53 | WOUNDNOTE ---
Talked with Dr Medina about discharge plan. Ok with D/C home tomorrow and has requested that patient have follow up on 03/29/22 for wound assessment and VAC change at the wound healing center. This nurse called and made appt for 03/29/22 at 0830. CHARLIE Chavez and patient aware. will be sure patient is aware to take wound dressing to the appt with him. home VAC approved and will switch patient over tomorrow prior to discharge home.
--- NOTE | 2022-03-27 12:43 | PN.HOSP_ITS ---
Subjective Subjective Patient seen and examined. He feels well today. He had no active events overnight and review of systems otherwise negative. Objective Data Objective Data Vital Signs: Vital Signs Temp Pulse Resp BP Pulse Ox O2 Del Method O2 Flow Rate 97.5 F L 90 18 119/69 99 Room Air 2 03/27/22 09:00 03/27/22 09:00 03/27/22 09:00 03/27/22 09:00 03/27/22 09:00 03/27/22 09:00 03/24/22 12:00 Oxygen Flow Rate (L/min) 2 Oxygen Delivery Method Room Air Weight: 213 lb 13.574 oz Body Mass Index (BMI) 31.7 Intake & Output: Intake and Output for Last 24 Hours 03/25/22 03/26/22 03/27/22 23:59 23:59 23:59 Intake Total 3592.5 / 3952.5 1720 / 1720 850 / 850 Output Total 0 / 500 1700 / 2925 2625 / 2625 Balance 3592.5 / 3452.5 20 / -1205 -1775 / -1775 Lab / Micro Data Result Diagrams: 03/27/22 04:31 03/27/22 04:31 Labs: Laboratory Results - last 24 hr 03/26/22 14:55: Vancomycin Trough 14.3 03/26/22 16:24: POC Glucose 297 H 03/26/22 22:00: POC Glucose 323 H 03/27/22 04:31: WBC 9.9, RBC 4.68, Hgb 13.5, Hct 41.5, MCV 88.7 D, MCH 28.8, MCHC 32.5 D, RDW Std Deviation 41.7, RDW Coeff of Tomy 13.0, Plt Count 248, MPV 10.1, Immature Gran % (Auto) 0.800, Neut % (Auto) 78.8 H, Lymph % (Auto) 9.6 L, Boyd % (Auto) 9.3, Eos % (Auto) 1.3, Baso % (Auto) 0.2, Absolute Neuts (auto) 7.8 H, Absolute Lymphs (auto) 0.95, Nucleated RBC % 0 03/27/22 04:31: Sodium 138, Potassium 4.1, Chloride 107, Carbon Dioxide 25.0, Anion Gap 6, BUN 13, Creatinine 1.24, Estim Creat Clear Calc 66.65, Est GFR (MDRD) Af Amer 78, Est GFR (MDRD) Non-Af 65, BUN/Creatinine Ratio 10.5, Glucose 219 H, Calcium 9.0 03/27/22 06:58: POC Glucose 194 H 03/27/22 07:59: POC Glucose 190 H 03/27/22 10:47: POC Glucose 191 H Micro: Microbiology 03/24/22 01:10 Blood Culture (Wb) - Anticubital Left Blood Culture - Preliminary Anaerobic cocci 03/24/22 Unknown Bone - 5th Toe Gram Stain - Final 03/24/22 Unknown Bone - 5th Toe Wound Culture - Preliminary GPC Poss Enterococcus sp Staphylococcus species 03/24/22 Unknown Incision/Surgical Site Gram Stain - Final 03/24/22 Unknown Incision/Surgical Site Wound Culture - Final No growth aerobically. 03/24/22 Unknown Incision/Surgical Site Anaerobic Culture - Preliminary No growth in 48 hours. 03/24/22 Unknown Bone - 5th Toe Gram Stain - Final 03/24/22 Unknown Bone - 5th Toe Wound Culture - Final No growth aerobically. 03/24/22 Unknown Bone - 5th Toe Anaerobic Culture - Preliminary No growth in 48 hours. 03/24/22 Unknown Bone - 5th Toe Gram Stain - Final 03/24/22 Unknown Bone - 5th Toe Wound Culture - Preliminary Staphylococcus epidermidis Enterococcus casseliflavus (D) Turicella otitidis Gram positive organism 03/24/22 Unknown Bone - 5th Toe Anaerobic Culture - Preliminary Checking for anaerobes, further studies to follow. 03/24/22 01:27 Wound - Left Foot Gram Stain - Final 03/24/22 01:27 Wound - Left Foot Wound Culture - Final Staphylococcus aureus Enterococcus faecalis Coag Negative Staph Gram positive hector 03/24/22 Unknown Tissue - 5th Metatarsal Bone Gram Stain - Final 03/24/22 Unknown Tissue - 5th Metatarsal Bone Wound Culture - Final Enterococcus faecalis 03/24/22 01:15 Blood Culture (Wb) - Left Hand Blood Culture - Preliminary Physical Exam Const alert, oriented x3 and no apparent distress General Appearance: cooperative, well kempt and well developed Orientation / Consciousness: awake, oriented to person, oriented to place and oriented to time HEENT normocephalic, head/scalp atraumatic, moist oral mucous membranes and oropharynx normal Eyes PERRL, EOMs intact bilaterally and conjunctivae normal Neck no lymphadenopathy, supple, no JVD, thyroid normal and no carotid bruits General: trachea midline Resp normal respiratory effort, no retractions, no use of accessory muscles and clear to auscultation bilaterally Auscultation: Negative for rales, rhonchi or wheezes Cardio regular rate, regular rhythm, S1 normal heart sound, S2 normal heart sound, no murmurs, no rub and no gallops GI normal to inspection, nondistended, normoactive bowel sounds, soft to palpation, non-tender and non-distended Extremity Extremity Narrative: left foot wrapped in bandage. Wound vac in place Skin no rashes or lesions noted General Skin Exam: no breakdown Neuro oriented x3, CN's II-XII intact bilaterally, moves all extremities, no focal motor deficits and no sensory deficits noted Sensorium / Orientation: awake, alert, oriented to person, oriented to place and oriented to time Speech: speech normal Psych affect normal Assessment & Plan Assessment/Plan (1) Gas gangrene of foot: (2) Necrotizing fasciitis: (3) Cellulitis of left lower limb: PLAN: Plan #Necrotising fasciitis of the LLE * has wound vac in place. S/p partial fifth ray amputation of the left foot * podiatry on board * Blood cultures grew gram-positive cocci in chains and staff aureus PCR was positive. * On IV vancomycin and Zosyn * ID on board; repeat blood cultures ordered * PICC line also ordered; antibiotics narrowed to IV vancomycin and unasyn. * #Type 2 diabetes mellitus with neuropathy * poorly controlled. A1C is 10.5 * counseled about compliance with meds * on lantus 30 units daily. ISS. Accuchecks ACHS * on gabapentin * #Hyperlipidemia: On statin #ILDA on CKD stage IIIb: * Stable. Creatinine is down to 1.24 today. Trending downwards from 2.26 couple of days ago. Has a history of renal transplant. * On Envarsus and mycophenolate as well as prednisone * Nephrology on board. #Depression: On Wellbutrin DVT prophylaxis: lovenox, renally dosed Disposition: for dc home with home healthcare, likely tomorrow Charges/Coding Visit Charges Inpatient E&M: 67061 Subs Hosp L2
[2022-03-27] MEDS: 0.9% Saline Lock 10 ML Syringe IV (13:59)
[2022-03-27 14:02] LABS: Vancomycin, Trough Level 15.1 ug/mL (5.0-15.0)
--- NOTE | 2022-03-27 14:38 | NURSING ---
MARKETING COMMUNICATION MANAGER assists pt back to bed from bathroom. MARKETING COMMUNICATION MANAGER patted back of pt as he sat down and asks you ok? Pt responds ah that feels good... don't worry I won't tell. This nurse tells pt to stop with inappropriate comments or MARKETING COMMUNICATION MANAGER will not come back into room. Pt states he understands. Pt apologized to this nurse after MARKETING COMMUNICATION MANAGER left room. This nurse explains that patients can not talk sexually or make inappropriate comments to staff
--- NOTE | 2022-03-27 14:52 | PCM.RX.CS ---
Consult Pharmacy has been consulted to manage selected antiobiotic: Vancomycin Type of Consult: Follow-up Suspected Infection: Osteomyelitis Prior Doses of Antibiotics Received/Current Regimen: 03/26/22 @ 1530 03/27/22 @ 0330 Labs: Sodium 138 mmol/L (136-145) 03/27/22 04:31 Potassium 4.1 mmol/L (3.5-5.1) 03/27/22 04:31 Chloride 107 mmol/L (98-107) 03/27/22 04:31 Carbon Dioxide 25.0 mmol/L (21.0-32.0) 03/27/22 04:31 Anion Gap 6 (5-15) 03/27/22 04:31 BUN 13 mg/dL (7-18) 03/27/22 04:31 Creatinine 1.24 mg/dL (0.70-1.30) 03/27/22 04:31 Est GFR (MDRD) Af Amer 78 mL/min (>60) 03/27/22 04:31 Est GFR (MDRD) Non-Af 65 mL/min (>60) 03/27/22 04:31 BUN/Creatinine Ratio 10.5 RATIO (10-20) 03/27/22 04:31 Glucose 219 mg/dL (74-106) H 03/27/22 04:31 Vancomycin Trough 15.1 ug/mL (5.0-15.0) H 03/27/22 13:25 Microbiology: Microbiology 03/24/22 01:10 Blood Culture (Wb) - Anticubital Left Blood Culture - Preliminary Anaerobic cocci 03/24/22 Unknown Bone - 5th Toe Gram Stain - Final 03/24/22 Unknown Bone - 5th Toe Wound Culture - Preliminary GPC Poss Enterococcus sp Staphylococcus species 03/24/22 Unknown Incision/Surgical Site Gram Stain - Final 03/24/22 Unknown Incision/Surgical Site Wound Culture - Final No growth aerobically. 03/24/22 Unknown Incision/Surgical Site Anaerobic Culture - Preliminary No growth in 48 hours. 03/24/22 Unknown Bone - 5th Toe Gram Stain - Final 03/24/22 Unknown Bone - 5th Toe Wound Culture - Final No growth aerobically. 03/24/22 Unknown Bone - 5th Toe Anaerobic Culture - Preliminary No growth in 48 hours. 03/24/22 Unknown Bone - 5th Toe Gram Stain - Final 03/24/22 Unknown Bone - 5th Toe Wound Culture - Preliminary Staphylococcus epidermidis Enterococcus casseliflavus (D) Turicella otitidis Gram positive organism 03/24/22 Unknown Bone - 5th Toe Anaerobic Culture - Preliminary Checking for anaerobes, further studies to follow. 03/24/22 01:27 Wound - Left Foot Gram Stain - Final 03/24/22 01:27 Wound - Left Foot Wound Culture - Final Staphylococcus aureus Enterococcus faecalis Coag Negative Staph Gram positive hector 03/24/22 Unknown Tissue - 5th Metatarsal Bone Gram Stain - Final 03/24/22 Unknown Tissue - 5th Metatarsal Bone Wound Culture - Final Enterococcus faecalis 03/24/22 01:15 Blood Culture (Wb) - Left Hand Blood Culture - Preliminary Weight used for dosin kg Goal Trough: 15-20 mcg/mL Pharmacy Plan for Drug Dosing: continue with current dose of 1000mg q12h Pharmacy Service will continue to monitor and adjust dosing as required. Follow-Up Labs: Trough Vancomycin Labs to be done on [date and time ordered]: 03/29/22 @ 1300
[2022-03-27] MEDS: Juven (unflavored) Packet 1 PACKET PO (15:38)
[2022-03-27 16:41] LABS: Bedside Glucose 201 mg/dL (74-106)
[2022-03-27] MEDS: Atorvastatin Calcium 20 MG Tablet PO (21:09)
[2022-03-27] MEDS: Gabapentin 100 MG Capsule PO (21:12)
[2022-03-27 23:00] LABS: Bedside Glucose 232 mg/dL (74-106)
[2022-03-28] MEDS: Vancomycin IV 1,000 MG/200 ML BAG 200 MG IV ×2 (00:56→12:12)
[2022-03-28 05:48] LABS: Absolute Lymphocyte Count 0.96 X10^3/uL (0.83-4.51); Absolute Neutrophil Count 7.3 X10^3/uL (2.0-7.7); Basophil# 0.04 X10^3/uL; Basophil% 0.4 % (0-1); Eosinophil# 0.11 X10^3/uL; Eosinophils% 1.2 % (0-5); Hematocrit 43.9 % (40-54); Hemoglobin 13.8 g/dL (13.0-16.5); Lymphocyte # 0.96 X10^3/ul (0.83-4.51); Lymphocyte % 10.4 % (19-41); Mean Corp Hgb Conc 31.4 g/dL (32-36); Mean Corpuscular Hgb 28.5 pg (27.0-32.0); Mean Corpuscular Volume 90.7 fL (80-94); Mean Platelet Vol. 10.5 fl (6.2-12.0); Monocyte# 0.75 X10^3/uL; Monocyte% 8.2 % (0-10); NRBC Flagged by Analyzer 0 % (0-5); Neutrophil # 7.25 X10^3/uL (2.7-7.7); Neutrophil % 78.9 % (47-70); Platelet Count 297 K/mm3 (150-450); RBC Distribution Width CV 12.8 % (11.6-14.6); RBC Distribution Width SD 42.6 fl (35.1-43.9); Red Blood Count 4.84 M/mm3 (4.6-6.2); White Blood Count 9.2 K/mm3 (4.4-11.0)
[2022-03-28 06:05] LABS: Anion Gap 6 (5-15); BUN 17 mg/dL (7-18); BUN/Creat Ratio 13.9 RATIO (10-20); Calcium,Total 8.8 mg/dL (8.5-10.1); Chloride 105 mmol/L (98-107); Creatinine, Serum 1.22 mg/dL (0.70-1.30); EST Glomerular Filtration Rate 66 mL/min (>60); Est Glom Filt Rate - Afr Amer 80 mL/min (>60); Estimated Creatinine Clearance 67.75 ml/min; Glucose 336 mg/dL (74-106); Potassium 4.3 mmol/L (3.5-5.1); Sodium Level 139 mmol/L (136-145)
[2022-03-28] MEDS: Enoxaparin 40 MG/0.4 ML Syringe SC (06:33)
[2022-03-28 06:48] VITALS: BP 138/87; PULSE 85; RESP 16; TEMP 36.8; O2SAT 96
[2022-03-28 07:00] VITALS: PULSE 82
--- NOTE | 2022-03-28 08:27 | PN.RENAL_ITS ---
Subjective Subjective allograft fxn stable Objective Data Objective Data Vital Signs: Vital Signs Temp Pulse Resp BP Pulse Ox O2 Del Method O2 Flow Rate 98.2 F 82 16 138/87 H 96 Room Air 2 03/28/22 06:48 03/28/22 07:00 03/28/22 06:48 03/28/22 06:48 03/28/22 06:48 03/28/22 06:48 03/24/22 12:00 Oxygen Flow Rate (L/min) 2 Oxygen Delivery Method Room Air Weight: 96.8 kg Body Mass Index (BMI) 31.7 Intake & Output: Intake and Output for Last 24 Hours 03/26/22 03/27/22 03/28/22 23:59 23:59 23:59 Intake Total 1720 / 1720 1724 / 1724 812 / 812 Output Total 1700 / 2925 2625 / 2625 350 / 350 Balance 20 / -1205 -901 / -901 462 / 462 Lab / Micro Data Result Diagrams: 03/28/22 04:15 03/28/22 04:15 Labs: Laboratory Results - last 24 hr 03/27/22 06:58: POC Glucose 194 H 03/27/22 07:59: POC Glucose 190 H 03/27/22 10:47: POC Glucose 191 H 03/27/22 13:25: Vancomycin Trough 15.1 H 03/27/22 15:36: POC Glucose 201 H 03/27/22 21:02: POC Glucose 232 H 03/28/22 04:15: WBC 9.2, RBC 4.84, Hgb 13.8, Hct 43.9, MCV 90.7, MCH 28.5, MCHC 31.4 L, RDW Std Deviation 42.6, RDW Coeff of Tomy 12.8, Plt Count 297, MPV 10.5, Immature Gran % (Auto) 0.900, Neut % (Auto) 78.9 H, Lymph % (Auto) 10.4 L, Stanley % (Auto) 8.2, Eos % (Auto) 1.2, Baso % (Auto) 0.4, Absolute Neuts (auto) 7.3, Absolute Lymphs (auto) 0.96, Nucleated RBC % 0 03/28/22 04:15: Sodium 139, Potassium 4.3, Chloride 105, Carbon Dioxide 28.0, Anion Gap 6, BUN 17, Creatinine 1.22, Estim Creat Clear Calc 67.75, Est GFR (MDRD) Af Amer 80, Est GFR (MDRD) Non-Af 66, BUN/Creatinine Ratio 13.9, Glucose 336 H, Calcium 8.8 Micro: Microbiology 03/24/22 Unknown Bone - 5th Toe Gram Stain - Final 03/24/22 Unknown Bone - 5th Toe Wound Culture - Final Enterococcus faecalis Staphylococcus epidermidis 03/24/22 Unknown Bone - 5th Toe Gram Stain - Final 03/24/22 Unknown Bone - 5th Toe Wound Culture - Preliminary Staphylococcus epidermidis Enterococcus casseliflavus (D) Turicella otitidis Enterococcus faecalis Alpha Hemolytic Streptococcus 03/24/22 Unknown Bone - 5th Toe Anaerobic Culture - Preliminary Checking for anaerobes, further studies to follow. 03/24/22 01:10 Blood Culture (Wb) - Anticubital Left Blood Culture - Prel iminary Anaerobic cocci 03/24/22 Unknown Incision/Surgical Site Gram Stain - Final 03/24/22 Unknown Incision/Surgical Site Wound Culture - Final No growth aerobically. 03/24/22 Unknown Incision/Surgical Site Anaerobic Culture - Preliminary No growth in 48 hours. 03/24/22 Unknown Bone - 5th Toe Gram Stain - Final 03/24/22 Unknown Bone - 5th Toe Wound Culture - Final No growth aerobically. 03/24/22 Unknown Bone - 5th Toe Anaerobic Culture - Preliminary No growth in 48 hours. 03/24/22 01:27 Wound - Left Foot Gram Stain - Final 03/24/22 01:27 Wound - Left Foot Wound Culture - Final Staphylococcus aureus Enterococcus faecalis Coag Negative Staph Gram positive hector 03/24/22 Unknown Tissue - 5th Metatarsal Bone Gram Stain - Final 03/24/22 Unknown Tissue - 5th Metatarsal Bone Wound Culture - Final Enterococcus faecalis 03/24/22 01:15 Blood Culture (Wb) - Left Hand Blood Culture - Preliminary Physical Exam Const alert and oriented x3 Resp clear to auscultation bilaterally Cardio regular rate Extremity Extremity Narrative: left foot wrapped, 5th toe amputation General Extremity: AV fistula Assessment & Plan Assessment/Plan (1) Gas gangrene of foot: PLAN: s/p 5th toe amputation (2) Necrotizing fasciitis: PLAN: residential iv antibx, PICC line placement. ID, poldiatry mgmt (3) Diabetic foot infection: PLAN: left foot, leukocytosis improving on antibx (4) Renal transplant recipient: PLAN: Creatinine improved to 1.22, Continue IS therapy
[2022-03-28] MEDS: Juven (unflavored) Packet 1 PACKET PO (08:35)
[2022-03-28] MEDS: Pantoprazole Sodium 20 MG Tablet PO (08:35)
[2022-03-28] MEDS: predniSONE 5 MG Tablet PO (08:35)
[2022-03-28] MEDS: Aspirin 81 MG TAB.CHEW PO (08:35)
[2022-03-28] MEDS: Carvedilol 25 MG Tablet PO (08:35)
[2022-03-28] MEDS: buPROPion (XL) 300 MG TABLET.XL PO (08:35)
[2022-03-28] MEDS: Insulin Glargine-YFGN 100 UNIT/ML Pen 35 UNIT SC (08:40)
[2022-03-28] MEDS: Insulin Lispro 100 UNIT/ML INSULN.PEN SC ×2 (08:41→12:43)
[2022-03-28] MEDS: Insulin Lispro 100 UNIT/ML INSULN.PEN 10 UNIT SC ×2 (08:41→12:43)
[2022-03-28 09:01] LABS: Bedside Glucose 264 mg/dL (74-106)
--- NOTE | 2022-03-28 10:03 | DS.PCM_ITS ---
Providers Date of Admission: 03/24/22 Primary Care Physician: Dr. Zaida Mcneil MD Consultations 03/24/22 03:31 Consult: Infectious Disease Routine Consulting Provider: Satish Nava Reason for Consult: Nec Fasc L DM foot wound w/ 1 yr out renal txp EMERGENT Consult: No MD Notified: Yes Date Notified: 03/26/22 Time Notified: 07:41 Method of Notification: Text Consult: Meter Shop Superintendent / Pulmonary Medicine Routine Consulting Provider: Joao Hayes Reason for Consult: Nec Fasc L DM Foot wound, ILDA, recent 1 yr out renal txp EMERGENT Consult: No MD Notified: Yes Date Notified: 03/24/22 Time Notified: 02:43 Method of Notification: Text Consult: Nephrology Routine Consulting Provider: Loida Montiel Reason for Consult: ILDA on CKD, Renal Txp pat, admit w/ Nec Fasc L DM foot wound. EMERGENT Consult: No MD Notified: Yes Date Notified: 03/24/22 Time Notified: 03:02 Method of Notification: Text Consult: Onc/Wound/composite laminator Routine Comment: Consult: Podiatry Routine Consulting Provider: Jimenez Medina Reason for Consult: Nec fasc L DM foot wound EMERGENT Consult: Yes MD Notified: Yes Date Notified: 03/24/22 Time Notified: 02:33 Method of Notification: called, texted Reason For Visit: NEC FASC L DIABETIC FOOT WOUND Diagnosis Discharge Diagnosis (1) Gas gangrene of foot: Status: Acute Code(s): A48.0 - Gas gangrene (2) Necrotizing fasciitis: Status: Acute Code(s): M72.6 - Necrotizing fasciitis (3) Diabetic foot infection: Status: Acute Code(s): E11.628 - Type 2 diabetes mellitus with other skin complications; L08.9 - Local infection of the skin and subcutaneous tissue, unspecified (4) Renal transplant recipient: Status: Acute Code(s): Z94.0 - Kidney transplant status Plan #Necrotising fasciitis of the LLE * has wound vac in place. S/p partial fifth ray amputation of the left foot * podiatry on board * Blood cultures grew gram-positive cocci in chains and staff aureus PCR was positive. * On IV vancomycin and Zosyn * ID on board; repeat blood cultures ordered * PICC line also ordered; antibiotics narrowed to IV vancomycin and unasyn. * #Type 2 diabetes mellitus with neuropathy * poorly controlled. A1C is 10.5 * counseled about compliance with meds * on lantus 30 units daily. ISS. Accuchecks ACHS * on gabapentin * #Hyperlipidemia: On statin #ILDA on CKD stage IIIb: * Stable. Creatinine is down to 1.24 today. Trending downwards from 2.26 couple of days ago. Has a history of renal transplant. * On Envarsus and mycophenolate as well as prednisone * Nephrology on board. #Depression: On Wellbutrin DVT prophylaxis: lovenox, renally dosed Disposition: for dc home with home healthcare, likely tomorrow Medications at Discharge Home Medications aspirin 81 mg chewable tablet 81 mg PO DAILY@0800 heart [facility] 08/21/18 insulin lispro 100 unit/mL subcutaneous pen See Protocol SQ ACHS blood sugar 10/06/19 insulin glargine 100 unit/mL (3 mL) subcutaneous pen 0 unit subcut QHS blood sugar 08/11/20 atorvastatin 20 mg tablet (Lipitor) 20 mg PO QHS cholesterol 09/18/21 bupropion HCl 150 mg 24 hr tablet, extended release (Wellbutrin XL) 300 mg PO DAILY mood 09/18/21 docusate sodium 100 mg capsule (Colace) 100 mg PO DAILY constipation 09/18/21 mycophenolate mofetil 250 mg capsule (CellCept) 500 mg PO BID rejection med 09/18/21 pantoprazole 20 mg tablet,delayed release (Protonix) 20 mg PO DAILY gerd 09/18/21 prednisone 5 mg tablet 5 mg PO DAILY steroid 09/18/21 tacrolimus 1 mg tablet,extended release 24 hr (Envarsus XR) 1 mg PO DAILY rejection med 09/18/21 carvedilol 25 mg tablet 25 mg PO BID 12/26/21 cholecalciferol (vitamin D3) 25 mcg (1,000 unit) capsule (Vitamin D3) 50 mcg PO QWEEK 12/26/21 gabapentin 100 mg tablet 100 mg PO QHS 12/26/21 ampicillin-sulbactam 3 gram solution for injection 3 g IV Q8 40 days #120 ea 03/27/22 vancomycin 1 gram/200 mL in dextrose 5 % intravenous piggyback 1,000 mg IV Q12H 40 days #120 mL 03/27/22 Hospital Course Operations - (partial 5th ray amputation) Procedures None Summary of Care Provided Minutes Spent on Discharge: 40 Hospital Course: Patient is a 51-year-old male with a past medical history as outlined was admitted through the ED for complaint of increased redness and pain as well as ulceration of his left foot. He had been seeing podiatry on outpatient basis and had been following up at the wound center. He had had debridement done of his foot on 03/13/2022. He subsequently went on vacation to [place] and though he had been advised to ambulate in the surgical shoe and to not go into the ocean water, patient was walking barefoot on the beach. He subsequently developed increasing redness of the left foot with associated chills but no fevers. He also had worsening discoloration of the foot. He was admitted to be managed for cellulitis of the left lower extremity. Imaging done was concerning for gas gangrene and necrotizing fasciitis. She was initially admitted to the ICU and started on IV vancomycin and Zosyn. Podiatry was consulted. He had debridement done in the OR of the left foot and also had partial fifth ray amputation of the left foot. Nephrology was also consulted on account of creatinine trending upwards but subsequently creatinine trended down and normalized. Blood cultures grew gram-positive cocci in chains and staph aureus PCR was also positive. He had a PICC line inserted. Wound cultures from 03/13/2022 grew MSSA, E. coli and actinomyces as well as strep and corynebacteria. Plan was for patient to be discharged on IV vancomycin and Unasyn for 6 weeks with stop date of 05/05/2022. He was discharged home with home health care on and is follow-up with his primary care doctor and with podiatry as well as infectious diseases. Patient seen and examined prior to discharge. He had no active complaints and felt well. He had an uneventful night. Review of systems otherwise negative. Labs and vitals reviewed. Medication reviewed and reconciled. Physical Exam Const alert, oriented x3 and no apparent distress General Appearance: cooperative, comfortable, well kempt and well developed Orientation / Consciousness: awake, oriented to person, oriented to place and oriented to time HEENT normocephalic, head/scalp atraumatic, hearing grossly normal bilaterally, moist oral mucous membranes and oropharynx normal Eyes PERRL, EOMs intact bilaterally and conjunctivae normal Neck no lymphadenopathy, supple, no JVD, thyroid normal and no carotid bruits General: trachea midline Resp normal respiratory effort, no retractions, no use of accessory muscles and clear to auscultation bilaterally Auscultation: Negative for rales, rhonchi or wheezes Cardio regular rate, regular rhythm, S1 normal heart sound, S2 normal heart sound, no murmurs, no rub and no gallops GI normal to inspection, nondistended, normoactive bowel sounds, soft to palpation, non-tender and non-distended Extremity Extremity Narrative: left foot wrapped in bandage. Wound vac in place Skin no rashes or lesions noted General Skin Exam: no breakdown Neuro oriented x3, CN's II-XII intact bilaterally, moves all extremities, no focal motor deficits and no sensory deficits noted Sensorium / Orientation: awake, alert, oriented to person, oriented to place and oriented to time Speech: speech normal Psych affect normal Weight / BMI Weight Weight: 213 lb 6.519 oz Body Mass Index (BMI) 31.7 ABG / Lab / Microbiology Data Result Diagrams: 03/28/22 04:15 03/28/22 04:15 Laboratory: Laboratory Results - last 24 hr 03/27/22 06:58: POC Glucose 194 H 03/27/22 07:59: POC Glucose 190 H 03/27/22 10:47: POC Glucose 191 H 03/27/22 13:25: Vancomycin Trough 15.1 H 03/27/22 15:36: POC Glucose 201 H 03/27/22 21:02: POC Glucose 232 H 03/28/22 04:15: WBC 9.2, RBC 4.84, Hgb 13.8, Hct 43.9, MCV 90.7, MCH 28.5, MCHC 31.4 L, RDW Std Deviation 42.6, RDW Coeff of Tomy 12.8, Plt Count 297, MPV 10.5, Immature Gran % (Auto) 0.900, Neut % (Auto) 78.9 H, Lymph % (Auto) 10.4 L, [place] % (Auto) 8.2, Eos % (Auto) 1.2, Baso % (Auto) 0.4, Absolute Neuts (auto) 7.3, Absolute Lymphs (auto) 0.96, Nucleated RBC % 0 03/28/22 04:15: Sodium 139, Potassium 4.3, Chloride 105, Carbon Dioxide 28.0, Anion Gap 6, BUN 17, Creatinine 1.22, Estim Creat Clear Calc 67.75, Est GFR (MDRD) Af Amer 80, Est GFR (MDRD) Non-Af 66, BUN/Creatinine Ratio 13.9, Glucose 336 H, Calcium 8.8 03/28/22 08:23: POC Glucose 264 H Microbiology: Microbiology 03/26/22 13:45 Blood Culture (Wb) - Left Hand Blood Culture - Preliminary No growth in 48 hours. 03/24/22 Unknown Bone - 5th Toe Gram Stain - Final 03/24/22 Unknown Bone - 5th Toe Wound Culture - Final Enterococcus faecalis Staphylococcus epidermidis 03/24/22 Unknown Bone - 5th Toe Gram Stain - Final 03/24/22 Unknown Bone - 5th Toe Wound Culture - Preliminary Staphylococcus epidermidis Enterococcus casseliflavus (D) Turicella otitidis Enterococcus faecalis Alpha Hemolytic Streptococcus 03/24/22 Unknown Bone - 5th Toe Anaerobic Culture - Preliminary Checking for anaerobes, further studies to follow. 03/24/22 01:10 Blood Culture (Wb) - Anticubital Left Blood Culture - Preliminary Anaerobic cocci 03/24/22 Unknown Incision/Surgical Site Gram Stain - Final 03/24/22 Unknown Incision/Surgical Site Wound Culture - Final No growth aerobically. 03/24/22 Unknown Incision/Surgical Site Anaerobic Culture - Preliminary No growth in 48 hours. 03/24/22 Unknown Bone - 5th Toe Gram Stain - Final 03/24/22 Unknown Bone - 5th Toe Wound Culture - Final No growth aerobically. 03/24/22 Unknown Bone - 5th Toe Anaerobic Culture - Preliminary No growth in 48 hours. 03/24/22 01:27 Wound - Left Foot Gram Stain - Final 03/24/22 01:27 Wound - Left Foot Wound Culture - Final Staphylococcus aureus Enterococcus faecalis Coag Negative Staph Gram positive hector 03/24/22 Unknown Tissue - 5th Metatarsal Bone Gram Stain - Final 03/24/22 Unknown Tissue - 5th Metatarsal Bone Wound Culture - Final Enterococcus faecalis 03/24/22 01:15 Blood Culture (Wb) - Left Hand Blood Culture - Preliminary D/C Instructions Discharge Diet: Low fat / Low cholesterol and 1800 Calorie Control Diet Discharge Activity: Return to Normal Activity Weight Bearing Status: Weight bearing as tolerated Call your doctor if you observe: Fever of 101 or Higher, Shortness of breath and Swelling in the ankles Meaningful Use Info Meaningful Use Diagnoses (Choose all that apply): None applicable Discharge Plan Admission Admit Date/Time: 03/24/22 02:31 Attending Provider: Shruti Jara Primary Care Provider: Zaida Mcneil Consulting Providers: Isamar Smith ; Joao Hayes ; Loida Montiel ; Jimenez Medina ; John Darnell ; Satish Nava Instructions Patient Instructions: Abscess Drainage, Osteomyelitis Dc Discharge Orders/Prescriptions Prescriptions: New ampicillin-sulbactam 3 gram Recon Soln 3 g IV Q8 40 Days Qty: 120 0RF Rx Instructions: stop date 05/05/22 dx: L foot osteomyelitis weekly bmp, cbc, vanc trough, and esr. Fax to [phone] routine picc care with heparin/saline flush per protocol vancomycin in dextrose 5 % 1 gram/200 mL Piggyback 1,000 mg IV Q12H 40 Days Qty: 120 0RF Rx Instructions: stop date 05/05/22 dx: L foot osteomyelitis weekly bmp, cbc, vanc trough, and esr. Fax to [phone] routine picc care with heparin/saline flush per protocol Continued insulin glargine 100 unit/mL (3 mL) insulin pen 0 unit SC QHS Label Comments: Pt notes he takes night time insulin on a sliding scale aspirin 81 MG tablet,chewable 81 mg PO DAILY@0800 insulin lispro 100 UNIT/ML insulin pen See Protocol SQ ACHS Protocol: 6. Sliding Scale Insulin Custom Condition: mg/dl range Dose/Route: Number of Units Protocol Text: Custom Sliding Scale atorvastatin [Lipitor] 20 mg Tablet 20 mg PO QHS mycophenolate mofetil [CellCept] 250 mg Capsule 500 mg PO BID prednisone 5 mg Tablet 5 mg PO DAILY pantoprazole [Protonix] 20 mg Tablet,Delayed Release (Dr/Ec) 20 mg PO DAILY docusate sodium [Colace] 100 mg Capsule 100 mg PO DAILY bupropion HCl [Wellbutrin XL] 150 mg Tablet Extended Release 24 Hr 300 mg PO DAILY Envarsus XR 1 mg tablet extended release 24 hr 1 mg PO DAILY carvedilol 25 mg Tablet 25 mg PO BID cholecalciferol (vitamin D3) [Vitamin D3] 25 mcg (1,000 unit) Capsule 50 mcg PO QWEEK gabapentin 100 mg Tablet 100 mg PO QHS Referrals / Follow Up: Zaida Mcneil MD [Primary Care Provider] - Loida Montiel DO [STAFF PHYSICIAN] - Within 2 Weeks Jimenez Medina DPM [STAFF PHYSICIAN] - Within 1 Week Satish Nava MD [STAFF PHYSICIAN] - Within 1 Week Center,Wound [NON-STAFF] - 03/29/22 8:30 am (Dr Medina) Disposition Disposition (needs filled in before D/C Order can be placed): Home Health Service Charges/Coding Visit Charges Inpatient E&M: 49884 Disch Hosp
--- NOTE | 2022-03-28 10:11 | CASEMGMT ---
Addendum entered by Kathy Castellano 03/28/22 14:36: Discharge instructions and summary faxed to [facility] at this time Addendum entered by Kathy Castellano 03/28/22 12:25: Call received from Maranda @ [facility]. The earliest they would be able to deliver atb's to pt's home is 3:30/4 PM today. She states she will contact [facility] to discuss SOC time with them. Call then received call from Maranda and Delvin @ [facility]. They have spoken w/OSCAR who confirms delivery time of IV atb today around 3:30/4. Plan is as follows: pt to receive 1230 dose Vanco today and then discharge home. [facility] SOC scheduled for today around 3:30/4 PM and pt will receive 2 PM dose of Unasyn at that time. RNParveen, and pt both made aware of discharge plan. Pt states he will contact someone to take him home today after Vanco is infused so he will be home by 3:30 PM. He denies having any further discharge planning needs or concerns. Addendum entered by Kathy Castellano 03/28/22 10:19: Call received back from Maranda. Spoke w/marlon Low and Delvin @ [facility]. They were made aware atb's will not be delivered by 12:30. Awaiting to hear back from [facility] for ETA of atb delivery today. Original Note: ANDER GUERRA NOTE: Per Dr Jara, pt being discharged home today. Call to [facility] to confirm atb's have been delivered. Spoke w/Maranda. She states atb's were supposed to be delivered last PM, but delivery was delayed d/t multiple factors are their end, that it was going [place] be close to [place] before delivery could occur and so it was cancelled. She is aware [facility] is slated to start @ 12:30 PM today for 1st dose home Vanco and then Unasyn @ 2 PM. She states they are unable to get Vanco to pt by 12:30 PM today and apologizes for same. She is not sure how soon they can have atb's delivered. Call to [facility]. VM left w/Maranda. Awaiting call back. Apoorva BERNARDO RN, CM
--- NOTE | 2022-03-28 10:17 | WOUNDNOTE ---
Pt switched over to the home VAC. reviewed alarms, canister change, etc. with patient. pt aware he needs to take a wound VAC dressing with him to the wound center tomorrow. Pt aware of appt time. pt denies further questions or concerns at this time.
[2022-03-28 10:39] VITALS: BP 138/87; PULSE 85; RESP 16; TEMP 36.8; O2SAT 96
--- NOTE | 2022-03-28 11:33 | PHA.DC.MC ---
Pharmacy Service has performed discharge medication reconciliation and counseling for this patient. 1. AMPICILLIN/SULBACTAM 3GM IV Q8 X 6 WEEKS 2. VANCOMYCIN 1000MG IV Q12 X 6 WEEKS The patient's discharge medication list was reviewed for discrepancies and discrepancies were resolved. Home Medications aspirin 81 mg chewable tablet 81 mg PO DAILY@0800 [facility] 08/21/18 insulin lispro 100 unit/mL subcutaneous pen See Protocol SQ ACHS blood sugar 10/06/19 insulin glargine 100 unit/mL (3 mL) subcutaneous pen 0 unit subcut QHS blood sugar 08/11/20 atorvastatin 20 mg tablet (Lipitor) 20 mg PO QHS cholesterol 09/18/21 bupropion HCl 150 mg 24 hr tablet, extended release (Wellbutrin XL) 300 mg PO DAILY mood 09/18/21 docusate sodium 100 mg capsule (Colace) 100 mg PO DAILY constipation 09/18/21 mycophenolate mofetil 250 mg capsule (CellCept) 500 mg PO BID rejection med 09/18/21 pantoprazole 20 mg tablet,delayed release (Protonix) 20 mg PO DAILY gerd 09/18/21 prednisone 5 mg tablet 5 mg PO DAILY steroid 09/18/21 tacrolimus 1 mg tablet,extended release 24 hr (Envarsus XR) 1 mg PO DAILY rejection med 09/18/21 carvedilol 25 mg tablet 25 mg PO BID 12/26/21 cholecalciferol (vitamin D3) 25 mcg (1,000 unit) capsule (Vitamin D3) 50 mcg PO QWEEK 12/26/21 gabapentin 100 mg tablet 100 mg PO QHS 12/26/21 ampicillin-sulbactam 3 gram solution for injection 3 g IV Q8 40 days #120 ea 03/27/22 vancomycin 1 gram/200 mL in dextrose 5 % intravenous piggyback 1,000 mg IV Q12H 40 days #120 mL 03/27/22 The patient was counseled on the following discharge medications and changes in medications for homegoing were reviewed. The Reason for Use, instructions for use, and potential side effects were reviewed for all new medications. The patient's questions regarding all of their medications were answered. The patient was able to verbally demonstrate an understanding of their discharge medications.
[2022-03-28 13:00] LABS: Bedside Glucose 186 mg/dL (74-106)
--- NOTE | 2022-03-28 13:22 | CASEMGMT ---
SW met with patient as he wanted to complete Healthcare Power of Finish Molder. SW assisted patient in completing document. Copies were made and given to patient along with originals. A copy was also placed in patient's chart. Kiara RUIZ
[2022-03-28 19:26] LABS: Bedside Glucose 432 mg/dL (74-106)
[2022-03-28 19:26] LABS: Bedside Glucose 422 mg/dL (74-106)
[2022-03-29 12:37] LABS: Tacrolimus (FK506) 14.1 ng/mL (2.0-20.0)
== END 2022-03-28 14:49 | disposition home health service (06) | DRG 474 ==
LOC: ED 02:06 → ICU 02:49 → PCU 12:35
PROVIDERS: Internal Medicine; Student in an Organized Health Care Education/Training Program; Admitting Provider Family Medicine; Emergency Provider Emergency Medicine; PCP Internal Medicine; Visit Provider Student in an Organized Health Care Education/Training Program
PROC: 0Y6N0ZF Detachment at Left Foot, Partial 5th Ray, Open Approach (ICD-10-PCS; principal; 2022-03-24 08:45)
DX: M72.6 Necrotizing fasciitis (principal); A48.0 Gas gangrene; R78.81 Bacteremia; I13.2 Hypertensive heart and chronic kidney disease with heart failure and with stage 5 chronic kidney disease, or end stage renal disease; L03.116 Cellulitis of left lower limb; N17.9 Acute kidney failure, unspecified; I50.32 Chronic diastolic (congestive) heart failure; M86.8X7 Other osteomyelitis, ankle and foot; Z94.0 Kidney transplant status; E11.42 Type 2 diabetes mellitus with diabetic polyneuropathy; B95.2 Enterococcus as the cause of diseases classified elsewhere; E11.628 Type 2 diabetes mellitus with other skin complications; E11.65 Type 2 diabetes mellitus with hyperglycemia; L97.522 Non-pressure chronic ulcer of other part of left foot with fat layer exposed; Z79.4 Long term (current) use of insulin; N18.32 Chronic kidney disease, stage 3b; E11.621 Type 2 diabetes mellitus with foot ulcer; E78.5 Hyperlipidemia, unspecified; K21.9 Gastro-esophageal reflux disease without esophagitis; I25.10 Atherosclerotic heart disease of native coronary artery without angina pectoris; F41.9 Anxiety disorder, unspecified; B96.20 Unspecified Escherichia coli [E. coli] as the cause of diseases classified elsewhere; Z79.2 Long term (current) use of antibiotics; Z86.16 Personal history of COVID-19; Z91.19 Patient's noncompliance with other medical treatment and regimen; F32.A Depression, unspecified; Z79.82 Long term (current) use of aspirin; E66.9 Obesity, unspecified; B95.62 Methicillin resistant Staphylococcus aureus infection as the cause of diseases classified elsewhere; L08.9 Local infection of the skin and subcutaneous tissue, unspecified
CPT/HCPCS: 36415; 36569; 73620; 73630; 76000; 80048; 80053; 80197; 80202; 82962; 83036; 83605; 83735; 85025; 85652; 86140; 87015; 87040; 87070; 87075; 87077; 87102; 87116; 87186; 87205; 87206; 87640; 88304; 88305; 88311; 97110; 97162; 97166; 97530; 97535; 97803; 99251; 99284; 99406; J7030; J7040; A4216; G0463; J0295; J2405

== ENCOUNTER 2022-04-02 15:04 | Outpatient (RCR) | payer MEDICARE, SELFPAY ==
[2022-04-02 15:36] LABS: Hemoglobin 14.2 g/dL (13.0-16.5); Mean Corp Hgb Conc 30.9 g/dL (32-36); Mean Corpuscular Hgb 29.1 pg (27.0-32.0); Mean Corpuscular Volume 94.3 fL (80-94); Mean Platelet Vol. 10.3 fl (6.2-12.0); Platelet Count 277 K/mm3 (150-450); RBC Distribution Width CV 13.2 % (11.6-14.6); RBC Distribution Width SD 45.1 fl (35.1-43.9); Red Blood Count 4.88 M/mm3 (4.6-6.2)
[2022-04-02 15:39] LABS: Anion Gap 5 (5-15); BUN 30 mg/dL (7-18); BUN/Creat Ratio 19.6 RATIO (10-20); Calcium,Total 9.1 mg/dL (8.5-10.1); Chloride 110 mmol/L (98-107); Creatinine, Serum 1.53 mg/dL (0.70-1.30); EST Glomerular Filtration Rate 51 mL/min (>60); Est Glom Filt Rate - Afr Amer 62 mL/min (>60); Glucose 115 mg/dL (74-106); Potassium 4.3 mmol/L (3.5-5.1); Sodium Level 139 mmol/L (136-145)
[2022-04-02 15:40] LABS: Vancomycin, Trough Level 24.2 ug/mL (5.0-15.0)
[2022-04-02 15:57] LABS: Erythrocyte Sedimentation Rate 48 mm/hr (0-20)
== END 2022-04-07 21:42 | disposition home or self-care (01) ==
LOC: HHLAB 15:04
PROVIDERS: PCP Internal Medicine; Visit Provider Internal Medicine
DX: M72.6 Necrotizing fasciitis (principal)
CPT/HCPCS: 80048; 80202; 85027; 85652

== ENCOUNTER 2022-04-05 08:45 | Outpatient (RCR) | payer MEDICARE, MEDICAID, SELFPAY ==
[2022-03-09 00:36] VITALS: BP 138/83; PULSE 83; RESP 16; TEMP 36.1; BMI 34.2
[2022-03-13 10:06] VITALS: BP 137/77; PULSE 89; RESP 16; TEMP 36.8; BMI 34.2
--- NOTE | 2022-03-13 10:58 | PCM.WC.PN ---
History of Present Illness Date of Service: 03/13/22 Chief Complaint: Right leg wound History of Wound: 46-year-old male with diabetic neuropathy returns to clinic today to follow-up for a left foot ulcer. He denies any changes at this time. He denies pain or other illness. He has been compliant. Patient denies any constitutional symptoms at his appointment today. Patient has a recent A1c greater than 8. Patient has a 1-year-old kidney transplant. He has been compliant with treatment at this time. Patient noted some diarrhea with the antibiotics he is taking. Denies any constitutional symptoms or new complaints at this time. Objective Data Objective Data Vital Signs: Vital Signs Temp Pulse Resp BP O2 Del Method 98.2 F 89 16 137/77 H Room Air 03/13/22 10:06 03/13/22 10:06 03/13/22 10:06 03/13/22 10:06 03/13/22 10:06 Oxygen Delivery Method Room Air Weight: 102.058 kg Body Mass Index (BMI) 34.2 Physical Exam Narrative Patient is alert oriented to person, place and time. Patient ambulates in surgical shoe on the left. And diabetic shoe on the right. Vascular: There are atrophic changes of the skin such as thinning shiny taut appearance absent digital hair growth. Pulses are grossly palpable 2 out of 4 dorsalis pedis and posterior tibial bilateral feet. Mild +1 pitting edema to bilateral lower extremity. Neurologic: Light touch protective sensation completely absent to bilateral lower extremity. Dermatologic: Healed right hallux ulceration. Digital wounds to left foot healed at this time. New wound formation to plantar left fifth metatarsal head with periwound callus no evidence of deep probing or undermining postdebridement the wound did not demonstrate 100% granular base with no deep probing or undermining. There is noted to be periwound erythema edema and warmth no other signs of infection. Pre and postdebridement measurements document nursing notes. Musculoskeletal: No gross wound forming deformity. Muscular strength full to bilateral lower extremity compartments. No crepitus or pain noted to the wound or periwound areas. 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 ) Arrival Mode Ambulatory Transfer Assistance None Patient Identification Verified (Name & Yes ) Patient Requires Transmission-Based No Precautions Height and Weight Body Mass Index (BMI) 34.2 BMI Classification Obese Vital Signs Temperature (97.8 F-99.1 F) 98.2 F Temperature Source Temporal Pulse Rate (60-100) 89 Pulse Location Monitor Respiratory Rate (12-18) 16 Respiratory rate source Observation Oxygen Delivery Method Room Air Blood Pressure (90/60-120/80) 137/77 H Blood Pressure Mean (mm Hg) 97 Source Monitor Position Sitting Blood Pressure Location Left Arm History Since Last Visit- (Skip if this is Patient's initial visit) Have you changed medications since your No last visit? Any new allergies or adverse reactions No Had a fall/change in ADL's that may No increase risk of falls Signs or symptoms of abuse and/or No neglect since last visit Have you been in the hospital since your No last visit? Has dressing in place as prescribed Yes Has compression in place as prescribed Yes Has offloadiing in place as prescribed No Experienced any changes in pain level or No management Left Footwear Regular Shoe Right Footwear Regular Shoe Pain Scale: 0-10 Numeric Is Patient Pain Free? Yes - Nurse 1 - General Ulcer Measurement Start: 03/13/22 10:06 Freq: Status: Active Protocol: Activity Type Activity Date Activity User E-sign Co-sign Detail Recorded Client Recorded Date Recorded By Document 03/13/22 10:06 [facility] [id number] 03/13/22 10:13 [facility] 03/13/22 10:06 Wound Center Nurse 1 #6 L 2ND TOE -Combined with other wound No -Current Size (cm) - Length 0.1 -Current Size (cm) - Width 0.1 -Current Size (cm) - Depth 0.1 -Total Square Cm 0.01 -Tunneling No -Undermining/Tunneling No -Circular Undermining No -Exudate Amt None Present -Necrosis Amt Small (1-33%) -Necrotic Tissue Type Eschar -Texture ([place]-wound Skin Appearance) Assessed, Scarring -Moisture ([place]-wound Skin Appearance) Assessed,Dry/ Scaly -Color ([place]-wound Skin Appearance) Assessed -Temperature ([place]-wound Skin No Abnormality Appearance) (Pt Warm) -Tenderness on Palpation ([place]-wound No Skin Appearance) -Ulcer Cleansing Rinsed/ Irrigated with Saline -Foul Odor after Cleansing No -Anesthetic Used 5% Lidocaine Gel WC - Nurse 2 - General Ulcer CM Notes Start: 03/13/22 10:06 Freq: Status: Active Protocol: Activity Type Activity Date Activity User E-sign Co-sign Detail Recorded Client Recorded Date Recorded By Document 03/13/22 10:41 MW [id number] 03/13/22 10:50 MW 03/13/22 10:41 Wound Center Nurse 2 -Time 10:43 -Correct Patient Yes -Correct Side, Site, Position Yes -Correct Procedure Yes -Procedure Performed No -Post Debridement (cm) - Length 0 -Post Debridement (cm) - Width 0 -Post Debridement (cm) - Depth 0 -Total Square (Post) (cm) 0 -Wound/Ulcer Outcome Healed- Epithelialized #9 left 5th plantar metatarsal -Time 10:42 -Correct Patient Yes -Correct Side, Site, Position Yes -Correct Procedure Yes -Procedure Performed Yes -Type of Procedure Debridement -Clinical Debridement Subcutaneous -Tissue Removed Subcutaneous -Post Debridement (cm) - Length 0.8 -Post Debridement (cm) - Width 1.1 -Post Debridement (cm) - Depth 0.3 -Total Square (Post) (cm) 0.88 -Area of Debridement (cm) - Length 0.8 -Area of Debridement (cm) - Width 1.1 -Total Square (Area) (cm) 0.88 -Tunneling No -Undermining/Tunneling No -Circular Undermining No -Wound/Ulcer Outcome Not Healed -Ulcer Cleansing Rinsed/ Irrigated with Saline -Foul Odor after Cleansing No -Bioengineered Tissue No -Bleeding Controlled with Pressure -Treatment Response Procedure Tolerated Well -Offloading No -Debridement - Subq, 1st 20sq cm Yes Pain Scale: 0-10 Numeric Is Patient Pain Free? Yes Assessment/Plan Assessment/Plan (1) Type 2 diabetes mellitus with diabetic polyneuropathy: CODE(S): E11.42 - Type 2 diabetes mellitus with diabetic polyneuropathy QUALIFIERS: Diabetes mellitus long-term insulin use: unspecified supervisor long goods insulin use status Qualified Code(s): E11.42 - Type 2 diabetes mellitus with diabetic polyneuropathy (2) 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 exposed: CODE(S): L97.522 - 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 exposed PLAN: Patient examined evaluated, all findings discussed patient in detail. New wound formation to plantar left foot this was noted. Noted be some evidence of cellulitis to the area so wound was flushed and cultured with a swab culture prescription for doxycycline and Cipro dispensed. Left plantar fifth metatarsal head wound was excisionally debrided down to including level of subcutaneous tissue of all nonviable tissue using 5 mm dermal curette. Oral consent obtained prior to procedure. Hemostasis obtained with light compression. No anesthesia due to neuropathy. Pre and postdebridement measurements document nursing notes. Patient will perform daily dressing changes consisting of silver alginate DSD and will offload the site with a surgical shoe. We have ordered radiographs of the left foot to rule out any deep bone involvement. Patient is going on vacation and I have instructed patient to avoid any exposure water to the left foot and keep the site dressed at all times and to notify us if he notes any worsening of his condition. Patient will follow up in 1 week for continued care. (3) Other specified peripheral vascular diseases: CODE(S): I73.89 - Other specified peripheral vascular diseases
--- NOTE | 2022-03-13 11:16 | RAD_ITS ---
EXAM: XR LEFT FOOT COMPLETE, 3 OR MORE VIEWS CLINICAL INDICATION: CHRONIC ULCER OF L FOOT TECHNIQUE: Frontal, lateral and oblique views of the left foot. This report was created using [employer] report generation technology. COMPARISON: None. FINDINGS: BONES/JOINTS: Fracture of the distal portion of the second proximal phalanx. Soft tissue swelling around the foot. There is an enthesophyte involving the posterior superior calcaneus at the site of insertion of the Achilles tendon. Preservation of the joint space. No sclerotic or destructive changes observed. SOFT TISSUES: See above. VASCULATURE: There are atherosclerotic vascular calcifications. RAD/Foot min 3 Views IMPRESSION: Fracture of the distal portion of the second proximal phalanx. Soft tissue swelling around the foot. Electronically Signed: Lior Zuniga MD at 18:05 EDT ,
[2022-03-29 08:47] VITALS: BP 115/60; PULSE 102; TEMP 36.1; BMI 34.2
--- NOTE | 2022-03-29 10:21 | PN.PCM_ITS ---
History of Present Illness Date of Service: 03/29/22 Chief Complaint: Right leg wound History of Wound: 46-year-old male with diabetic neuropathy returns to clinic today to follow-up for a left foot ulcer. He denies any changes at this time. He denies pain or other illness. He has been compliant. Patient denies any constitutional symptoms at his appointment today. Patient has a recent A1c greater than 8. Patient has a 1-year-old kidney transplant. He has been compliant with treatment at this time. Patient noted some diarrhea with the antibiotics he is taking. Denies any constitutional symptoms or new complaints at this time. Subjective Subjective Patient is a 51-year-old male who presents to the wound care center for follow- up status post I&D of gas gangrene with partial fifth ray resection. His dressings are intact today with wound VAC intact with no leaks. He states he is feeling better since his discharge. He denies any constitutional symptoms. He states he had a PICC line placed and will be on 6 weeks of IV antibiotics secondary to his immunosuppression. He denies any pain today. He has no further complaints today. Objective Data Objective Data Vital Signs: Vital Signs Temp Pulse Resp BP O2 Del Method 97.0 F L 102 H 16 115/60 Room Air 03/29/22 08:47 03/29/22 08:47 03/13/22 10:06 03/29/22 08:47 03/13/22 10:06 Oxygen Delivery Method Room Air Weight: 102.058 kg Body Mass Index (BMI) 34.2 Lab / Micro Data Micro: Microbiology 03/13/22 10:50 Tissue Ulcer - Plantar Gram Stain - Final 03/13/22 10:50 Tissue Ulcer - Plantar Wound Culture - Final Staphylococcus aureus Escherichia coli Actinomyces species Strep anginosus Corynebacterium amycolatum 03/13/22 10:50 Tissue Ulcer - Plantar Anaerobic Culture - Final Prevotella bivia Physical Exam Const alert, oriented x3 and no apparent distress HEENT normocephalic Eyes General Eye: normal appearance of both eyes Neck General: normal visual inspection Lymph Lymphatic: no lymphadenopathy noted and no lymphedema noted Chest inspection of chest normal Resp normal respiratory effort Cardio regular rate and regular rhythm Extremity normal capillary refill, no joint enlargement, no calf tenderness and no pedal edema Peripheral Pulses: Yes posterior tibial pulses present and dorsalis pedis pulses present Skin no rashes or lesions noted, skin turgor normal and no jaundice Wound Narrative: Left foot: Erythema has resolved. Partial fifth ray resection noted. Sutures to the dorsal aspect of the foot are intact. Incision site is macerated distally secondary to wound VAC. Wound site measures 3.2 cm x 1.5 cm x 0.3 cm. There is localized rubor about the wound rim and lateral foot distally. There is no expressible purulent drainage, no malodor, no other localized signs of infection. Wound demonstrates healthy granular layer with adequate tissue bleeding. Neuro oriented x3 and moves all extremities Debridement Note Debridement Note Wound debrided: Left foot surgical wound Laterality: Left Wound Grade/Stage: Gustafson stage III Type of Debridement: Excisional debridement Anesthesia Used: 5% Lidocaine Gel Depth: Down to and including healthy tissue and in the subcutaneous layer Percentage of wound debrided: 100 Instrument Used: 3mm curette Tissue Removed: Fibrous, devitalized subcutaneous, biofilm, slough Severity: Fat Layer Exposed Amount of bleeding with debridement: Mild Bleeding Controlled with: Compression and gauze Patient tolerated procedure: Patient tolerated procedure well Post-Debridement Measurements and Additional Note: Post-Debridement Measurements/Treatment - Nurse 1 - General Ulcer Assessment Start: 03/13/22 10:06 Freq: Status: Active Protocol: HOLLY Activity Type Activity Date Activity User E-sign Co-sign Detail Recorded Client Recorded Date Recorded By Document 03/13/22 10:06 [facility] [id number] 03/13/22 10:13 [facility] Document 03/29/22 08:47 [id number] 03/29/22 08:54 03/13/22 03/29/22 10:06 08:47 - Today's Visit Information Type of service Follow-up Visit Follow-up Visit (Physician/FIELD SERVICE ENGINEER (Physician/FIELD SERVICE ENGINEER ) ) Arrival Mode Ambulatory Ambulatory, Walker Transfer Assistance None Patient Identification Verified (Name & Yes Yes ) Patient Requires Transmission-Based No Precautions Height and Weight Body Mass Index (BMI) 34.2 34.2 BMI Classification Obese Obese Vital Signs Temperature (97.8 F-99.1 F) 98.2 F 97.0 F L Temperature Source Temporal Temporal Pulse Rate (60-100) 89 102 H Pulse Location Monitor Monitor Respiratory Rate (12-18) 16 Respiratory rate source Observation Oxygen Delivery Method Room Air Blood Pressure (90/60-120/80) 137/77 H 115/60 Blood Pressure Mean (mm Hg) 97 78 Source Monitor Monitor Position Sitting Sitting Blood Pressure Location Left Arm Right Arm History Since Last Visit- (Skip if this is Patient's initial visit) Have you changed medications since your No No last visit? Any new allergies or adverse reactions No No Had a fall/change in ADL's that may No No increase risk of falls Signs or symptoms of abuse and/or No No neglect since last visit Have you been in the hospital since your No No last visit? Has dressing in place as prescribed Yes Yes Has compression in place as prescribed Yes Yes Has offloadiing in place as prescribed No N/A Experienced any changes in pain level or No No management Left Footwear Regular Shoe Regular Shoe Right Footwear Regular Shoe Regular Shoe Pain Scale: 0-10 Numeric Is Patient Pain Free? Yes Yes WC - Nurse 1 - General Ulcer Measurement Start: 03/13/22 10:06 Freq: Status: Active Protocol: Activity Type Activity Date Activity User E-sign Co-sign Detail Recorded Client Recorded Date Recorded By Document 03/13/22 10:06 [facility] [id number] 03/13/22 10:13 [facility] Document 03/29/22 08:47 [id number] 03/29/22 08:54 KR 03/13/22 03/29/22 10:06 08:47 Wound Center Nurse 1 #6 L 2ND TOE -Combined with other wound No -Current Size (cm) - Length 0.1 -Current Size (cm) - Width 0.1 -Current Size (cm) - Depth 0.1 -Total Square Cm 0.01 -Tunneling No -Undermining/Tunneling No -Circular Undermining No -Exudate Amt None Present -Necrosis Amt Small (1-33%) -Necrotic Tissue Type Eschar -Texture (Dunia-wound Skin Appearance) Assessed, Scarring -Moisture (Dunia-wound Skin Appearance) Assessed,Dry/ Scaly -Color (Dunia-wound Skin Appearance) Assessed -Temperature (Dunia-wound Skin No Abnormality Appearance) (Pt Warm) -Tenderness on Palpation (Dunia-wound No Skin Appearance) -Ulcer Cleansing Rinsed/ Irrigated with Saline -Foul Odor after Cleansing No -Anesthetic Used 5% Lidocaine Gel #9 left 5th plantar metatarsal -Current Size (cm) - Length 3.7 -Current Size (cm) - Width 3 -Current Size (cm) - Depth 0.2 -Total Square Cm 11.1 -Undermining/Tunneling Starts (O'clock 5 ) -Undermining/Tunneling Ends (O'clock) 8 -Maximum Distance (cm) 1.2 -Exudate Amt Large -Exudate Type Serosanguineous -Wound Margin Distinct, Outline Attached -Granulation Amt Large (67-100%) -Granulation Quality Red -Necrosis Amt None Present (0 %) -Structure Exposed Muscle,Bone,Fat Layer Exposed -Texture (Dunia-wound Skin Appearance) No Abnormality, Assessed -Moisture (Dunia-wound Skin Appearance) Assessed, Maceration -Color (Dunia-wound Skin Appearance) No Abnormality, Assessed -Temperature (Dunia-wound Skin No Abnormality Appearance) (Pt Warm) -Tenderness on Palpation (Dunia-wound No Skin Appearance) -Ulcer Cleansing Soap and Water -Foul Odor after Cleansing No WC - Nurse 2 - General Ulcer CM Notes Start: 03/13/22 10:06 Freq: Status: Active Protocol: Activity Type Activity Date Activity User E-sign Co-sign Detail Recorded Client Recorded Date Recorded By Document 03/13/22 10:41 MW [id number] 03/13/22 10:50 MW 03/13/22 10:41 Wound Center Nurse 2 #6 L 2ND TOE -Time 10:43 -Correct Patient Yes -Correct Side, Site, Position Yes -Correct Procedure Yes -Procedure Performed No -Post Debridement (cm) - Length 0 -Post Debridement (cm) - Width 0 -Post Debridement (cm) - Depth 0 -Total Square (Post) (cm) 0 -Wound/Ulcer Outcome Healed- Epithelialized #9 left 5th plantar metatarsal -Time 10:42 -Correct Patient Yes -Correct Side, Site, Position Yes -Correct Procedure Yes -Procedure Performed Yes -Type of Procedure Debridement -Clinical Debridement Subcutaneous -Tissue Removed Subcutaneous -Post Debridement (cm) - Length 0.8 -Post Debridement (cm) - Width 1.1 -Post Debridement (cm) - Depth 0.3 -Total Square (Post) (cm) 0.88 -Area of Debridement (cm) - Length 0.8 -Area of Debridement (cm) - Width 1.1 -Total Square (Area) (cm) 0.88 -Tunneling No -Undermining/Tunneling No -Circular Undermining No -Wound/Ulcer Outcome Not Healed -Ulcer Cleansing Rinsed/ Irrigated with Saline -Foul Odor after Cleansing No -Bioengineered Tissue No -Bleeding Controlled with Pressure -Treatment Response Procedure Tolerated Well -Offloading No -Debridement - Subq, 1st 20sq cm Yes Pain Scale: 0-10 Numeric Is Patient Pain Free? Yes - Nurse 3 - General Ulcer D/C NN Start: 03/13/22 10:06 Freq: Status: Active Protocol: Activity Type Activity Date Activity User E-sign Co-sign Detail Recorded Client Recorded Date Recorded By Document 03/13/22 11:43 KELLIE [id number] 03/13/22 11:44 [place] Document 03/29/22 09:26 KR [id number] 03/29/22 09:27 KR 03/13/22 03/29/22 11:43 09:26 Wound Care Nurse 3 #9 left 5th plantar metatarsal -Ulcer Cleansing Rinsed/ Rinsed/ Irrigated with Irrigated with Saline Saline -Foul Odor after Cleansing No -Negative Pressure Wound Therapy N/A Continue -Negative Pressure is Continuous -Regranex (If Applicable) Continue -Primary Dressing Applied Aquacel AG 4x4 -Other Dressing surgical shoe -Primary Dressing Covered/Secured with Dry Gauze, Secured with Tape -NPWT Application Charge NPWT & Debridement (nc ) -Aquacel AG 4x4 1 Pain Scale: 0-10 Numeric Is Patient Pain Free? 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 (2) Bacteremia: CODE(S): R78.81 - Bacteremia (3) Cellulitis of left lower limb: CODE(S): L03.116 - Cellulitis of left lower limb (4) Sepsis: CODE(S): A41.9 - Sepsis, unspecified organism (5) Diabetic foot infection: CODE(S): E11.628 - Type 2 diabetes mellitus with other skin complications; L08.9 - Local infection of the skin and subcutaneous tissue, unspecified (6) Type 2 diabetes mellitus with diabetic polyneuropathy: CODE(S): E11.42 - Type 2 diabetes mellitus with diabetic polyneuropathy QUALIFIERS: Diabetes mellitus long goods drier insulin use: unspecified halfway insulin use status Qualified Code(s): E11.42 - Type 2 diabetes mellitus with diabetic polyneuropathy (7) 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 POV #3 (DOS: 03/24/2022) POD #5 Left lower extremity: Mild nonpitting edema of the left lower extremity.? Erythema continues to decrease, now localized about the distal rim of the incision. Fifth digit amputation noted.? Wound VAC intact at the most distal aspect of the incision site with no leaks detected.? Sutures intact.? No expressible purulent drainage or malodor on examination today.? There is some maceration at the most distal aspect of the incision site today secondary to the wound VAC. Wound VAC canister demonstrates very little collection/drainage of blood. Blood culture obtained in the ED 03/24/2022 results gram-positive cocci in chains, anaerobic bottle positive.? Wound culture obtained in ED 03/24/2022 results mixed gram-positive organisms, staph aureus protein A PCR positive.? Patient has a hemoglobin A1c of 10.5%. I discussed continued diet modifications for proper glycemic control. 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 Infection: Erythema continues to decrease. During surgical intervention 03/24/22 the tissues demonstrated normal integrity and were not easily dissectible through fascial planes with a finger as seen with typical necrotizing fasciitis cases.?He did however have soft tissue crepitus with foul odor consistent with a gas gangrene, confirmed by radiograph on 03/24/2022.? 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 WBC 16.3 with left shift prior to surgical intervention.?WBC currently 9.2 and trending down.?PICC line in place. Patient on IV antibiotics Vanco/Unasyn. Sx Cultures: Culture of wound/ulceration 03/24/2022 demonstrates mixed gram- positive organisms.?Bone culture fifth toe/fifth metatarsal demonstrates mixed gram-positive organisms.?Cultures post lavage demonstrate no growth.?Bone culture post lavage clearance fragment demonstrates no preliminary growth. Wound: Wound underwent debridement as noted in clinical panel above today. Healthy granular tissue noted with no localized signs of infection. Dressings: Wound VAC changed today.? VAC will be again changed 04/02/2022.? Incision site dressed with Betadine soaked Adaptic, 4 x 4 gauze, Kerlix, ABD, and Kirill wrap rolled onto the foot.? Dressings to be changed Saturday and . He was instructed to keep his dressings clean, dry, and intact to the left foot.? Continue to elevate the left lower extremity at all times of rest. Patient is to remain nonweightbearing to the left lower extremity with assistance of a knee scooter Visiting nursing to assist in dressing changes to the left foot and VAC change on 04/02/2022. He will again have VAC changed at his next wound care visit. He will return to the wound care center in 1 week for continued localized wound care. Note: [employer] speech recognition engineering administrator software was used to create portions of this document. Sound-alike and misspelled words, as well as other engineering administrator errors may be contained in the documentation.
[2022-04-05 08:39] VITALS: BP 186/82; PULSE 95; RESP 20; TEMP 36.9; BMI 34.2
--- NOTE | 2022-04-05 09:47 | PCM.WC.PN ---
History of Present Illness Date of Service: 04/05/22 Chief Complaint: Right leg wound History of Wound: 46-year-old male with diabetic neuropathy returns to clinic today to follow-up for a left foot ulcer. He denies any changes at this time. He denies pain or other illness. He has been compliant. Patient denies any constitutional symptoms at his appointment today. Patient has a recent A1c greater than 8. Patient has a 1-year-old kidney transplant. He has been compliant with treatment at this time. Patient noted some diarrhea with the antibiotics he is taking. Denies any constitutional symptoms or new complaints at this time. 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 He continues to state that he feels well.? He denies any constitutional symptoms.? He states he has been receiving IV antibiotics through PICC line and will be on 6 weeks of IV antibiotics secondary to his immunosuppression.? He denies any pain today.? He has no further complaints today. Objective Data Objective Data Vital Signs: Vital Signs Temp Pulse Resp BP O2 Del Method 98.4 F 95 20 H 186/82 H Room Air 04/05/22 08:39 04/05/22 08:39 04/05/22 08:39 04/05/22 08:39 03/13/22 10:06 Oxygen Delivery Method Room Air Weight: 102.058 kg Body Mass Index (BMI) 34.2 Lab / Micro Data Micro: Microbiology 03/13/22 10:50 Tissue Ulcer - Plantar Gram Stain - Final 03/13/22 10:50 Tissue Ulcer - Plantar Wound Culture - Final Staphylococcus aureus Escherichia coli Actinomyces species Strep anginosus Corynebacterium amycolatum 03/13/22 10:50 Tissue Ulcer - Plantar Anaerobic Culture - Final Prevotella bivia Physical Exam Narrative Patient is alert oriented to person, place and time. Patient ambulates in surgical shoe on the left. And diabetic shoe on the right. Vascular: There are atrophic changes of the skin such as thinning shiny taut appearance absent digital hair growth. Pulses are grossly palpable 2 out of 4 dorsalis pedis and posterior tibial bilateral feet. Mild +1 pitting edema to bilateral lower extremity. Neurologic: Light touch protective sensation completely absent to bilateral lower extremity. Dermatologic: Healed right hallux ulceration. Digital wounds to left foot healed at this time. New wound formation to plantar left fifth metatarsal head with periwound callus no evidence of deep probing or undermining postdebridement the wound did not demonstrate 100% granular base with no deep probing or undermining. There is noted to be periwound erythema edema and warmth no other signs of infection. Pre and postdebridement measurements document nursing notes. Musculoskeletal: No gross wound forming deformity. Muscular strength full to bilateral lower extremity compartments. No crepitus or pain noted to the wound or periwound areas. Const alert, oriented x3 and no apparent distress HEENT normocephalic Eyes General Eye: normal appearance of both eyes Neck General: normal visual inspection Lymph Lymphatic: no lymphadenopathy noted and no lymphedema noted Chest inspection of chest normal Resp normal respiratory effort Cardio regular rate and regular rhythm Extremity normal capillary refill, no joint enlargement, no calf tenderness and no pedal edema Skin no rashes or lesions noted, skin turgor normal and no jaundice Wound Narrative: Left foot: Erythema has resolved. Partial fifth ray resection noted. Sutures to the dorsal aspect of the foot are intact. Incision site is macerated distally secondary to wound VAC. Wound site measures 3.2 cm x 1.5 cm x 0.3 cm. There is localized rubor about the wound rim and lateral foot distally. There is no expressible purulent drainage, no malodor, no other localized signs of infection. Wound demonstrates healthy granular layer with adequate tissue bleeding. Neuro oriented x3 and moves all extremities Debridement Note Debridement Note Wound debrided: Left foot distal fifth metatarsal stump Laterality: Left Wound Grade/Stage: Gustafson grade 3 Type of Debridement: Excisional debridement Depth: Down to and including healthy tissue and in the subcutaneous layer Percentage of wound debrided: 100 Instrument Used: 3mm curette, #15 blade and Forceps Tissue Removed: Fibrous, devitalized subcutaneous, biofilm, slough Severity: Fat Layer Exposed Amount of bleeding with debridement: Mild Bleeding Controlled with: Compression and gauze Patient tolerated procedure: Patient tolerated procedure well Post-Debridement Measurements and Additional Note: Post-Debridement Measurements/Treatment WC - Nurse 1 - General Ulcer Assessment Start: 03/13/22 10:06 Freq: Status: Active Protocol: WC.LOWEXT Activity Type Activity Date Activity User E-sign Co-sign Detail Recorded Client Recorded Date Recorded By Document 03/13/22 10:06 [facility] [id number] 03/13/22 10:13 [facility] Document 03/29/22 08:47 KR [id number] 03/29/22 08:54 KR Document 04/05/22 08:39 DL [id number] 04/05/22 08:46 DL 03/13/22 03/29/22 04/05/22 10:06 08:47 08:39 WC - Today's Visit Information Type of service Follow-up Visit Follow-up Visit Follow-up Visit (Physician/TELE GROUT SEWER LINE REPAIRER (Physician/TELE GROUT SEWER LINE REPAIRER (Physician/TELE GROUT SEWER LINE REPAIRER ) ) ) Arrival Mode Ambulatory Ambulatory, Ambulatory Walker Arrival Mode (Other) Knee Walker Transfer Assistance None None Patient Identification Verified (Name & Yes Yes Yes ) Patient Requires Transmission-Based No No Precautions Finger Stick Blood Sugar(mg/dl) (if 182 indicated): Blood Sugar Stated by Patient Height and Weight Body Mass Index (BMI) 34.2 34.2 34.2 BMI Classification Obese Obese Obese Vital Signs Temperature (97.8 F-99.1 F) 98.2 F 97.0 F L 98.4 F Temperature Source Temporal Temporal Temporal Pulse Rate (60-100) 89 102 H 95 Pulse Location Monitor Monitor Monitor Respiratory Rate (12-18) 16 20 H Respiratory rate source Observation Observation Oxygen Delivery Method Room Air Blood Pressure (90/60-120/80) 137/77 H 115/60 186/82 H Blood Pressure Mean (mm Hg) 97 78 116 Source Monitor Monitor Monitor Position Sitting Sitting Blood Pressure Location Left Arm Right Arm History Since Last Visit- (Skip if this is Patient's initial visit) Have you changed medications since your No No No last visit? Any new allergies or adverse reactions No No No Had a fall/change in ADL's that may No No No increase risk of falls Signs or symptoms of abuse and/or No No No neglect since last visit Have you been in the hospital since your No No No last visit? Has dressing in place as prescribed Yes Yes Yes Has compression in place as prescribed Yes Yes Yes Has offloadiing in place as prescribed No N/A Yes Experienced any changes in pain level or No No No management Left Footwear Regular Shoe Regular Shoe Right Footwear Regular Shoe Regular Shoe Pain Scale: 0-10 Numeric Is Patient Pain Free? Yes Yes Yes WC - Nurse 1 - General Ulcer Measurement Start: 03/13/22 10:06 Freq: Status: Active Protocol: Activity Type Activity Date Activity User E-sign Co-sign Detail Recorded Client Recorded Date Recorded By Document 03/13/22 10:06 [facility] [id number] 03/13/22 10:13 BM Document 03/29/22 08:47 KR [id number] 03/29/22 08:54 KR Document 04/05/22 08:39 DL [id number] 04/05/22 08:46 DL 03/13/22 03/29/22 04/05/22 10:06 08:47 08:39 Wound Center Nurse 1 #6 L 2ND TOE -Combined with other wound No -Current Size (cm) - Length 0.1 -Current Size (cm) - Width 0.1 -Current Size (cm) - Depth 0.1 -Total Square Cm 0.01 -Tunneling No -Undermining/Tunneling No -Circular Undermining No -Exudate Amt None Present -Necrosis Amt Small (1-33%) -Necrotic Tissue Type Eschar -Texture (Dunia-wound Skin Appearance) Assessed, Scarring -Moisture (Dunia-wound Skin Appearance) Assessed,Dry/ Scaly -Color (Dunia-wound Skin Appearance) Assessed -Temperature (Dunia-wound Skin No Abnormality Appearance) (Pt Warm) -Tenderness on Palpation (Dunia-wound No Skin Appearance) -Ulcer Cleansing Rinsed/ Irrigated with Saline -Foul Odor after Cleansing No -Anesthetic Used 5% Lidocaine Gel #9 left 5th plantar metatarsal -Current Size (cm) - Length 3.7 4.5 -Current Size (cm) - Width 3 3 -Current Size (cm) - Depth 0.2 0.5 -Total Square Cm 11.1 13.5 -Photo Taken Yes -Undermining/Tunneling Starts (O'clock 5 5 ) -Undermining/Tunneling Ends (O'clock) 8 7 -Maximum Distance (cm) 1.2 1.1 -Exudate Amt Large Medium -Exudate Type Serosanguineous Serosanguineous -Wound Margin Distinct, Distinct, Outline Outline Attached Attached -Granulation Amt Large (67-100%) Medium (34-66%) -Granulation Quality Red Red -Necrosis Amt None Present (0 Medium (34-66%) %) -Necrotic Tissue Type Adherent Slough -Structure Exposed Muscle,Bone,Fat N/A Layer Exposed -Texture (Dunia-wound Skin Appearance) No Abnormality, Localized Edema Assessed ,Scarring -Moisture (Dunia-wound Skin Appearance) Assessed, Maceration Maceration -Color (Dunia-wound Skin Appearance) No Abnormality, No Abnormality Assessed -Temperature (Dunia-wound Skin No Abnormality No Abnormality Appearance) (Pt Warm) (Pt Warm) -Tenderness on Palpation (Dunia-wound No No Skin Appearance) -Ulcer Cleansing Soap and Water Soap and Water -Foul Odor after Cleansing No No -Anesthetic Used 4% Lidocaine Solution WC - Nurse 2 - General Ulcer CM Notes Start: 03/13/22 10:06 Freq: Status: Active Protocol: Activity Type Activity Date Activity User E-sign Co-sign Detail Recorded Client Recorded Date Recorded By Document 03/13/22 10:41 MW [id number] 03/13/22 10:50 MW Document 03/29/22 12:45 PL [id number] 03/29/22 12:47 PL 03/13/22 03/29/22 10:41 12:45 Wound Center Nurse 2 #6 L 2ND TOE -Time 10:43 -Correct Patient Yes -Correct Side, Site, Position Yes -Correct Procedure Yes -Procedure Performed No -Post Debridement (cm) - Length 0 -Post Debridement (cm) - Width 0 -Post Debridement (cm) - Depth 0 -Total Square (Post) (cm) 0 -Wound/Ulcer Outcome Healed- Epithelialized #9 left 5th plantar metatarsal -Time 10:42 08:59 -Correct Patient Yes Yes -Correct Side, Site, Position Yes Yes -Correct Procedure Yes Yes -Procedure Performed Yes Yes -Type of Procedure Debridement Debridement -Clinical Debridement Subcutaneous Subcutaneous -Tissue Removed Subcutaneous Subcutaneous -Post Debridement (cm) - Length 0.8 3.7 -Post Debridement (cm) - Width 1.1 3.0 -Post Debridement (cm) - Depth 0.3 0.2 -Total Square (Post) (cm) 0.88 11.10 -Area of Debridement (cm) - Length 0.8 3.7 -Area of Debridement (cm) - Width 1.1 3.0 -Total Square (Area) (cm) 0.88 11.10 -Tunneling No No -Undermining/Tunneling No No -Circular Undermining No No -Wound/Ulcer Outcome Not Healed Not Healed -Ulcer Cleansing Rinsed/ Rinsed/ Irrigated with Irrigated with Saline Saline -Foul Odor after Cleansing No No -Bioengineered Tissue No No -Bleeding Controlled with Pressure Pressure -Treatment Response Procedure Procedure Tolerated Well Tolerated Well -Offloading No -Debridement - Subq, 1st 20sq cm Yes Yes Pain Scale: 0-10 Numeric Is Patient Pain Free? Yes Yes - Nurse 3 - General Ulcer D/C NN Start: 03/13/22 10:06 Freq: Status: Active Protocol: Activity Type Activity Date Activity User E-sign Co-sign Detail Recorded Client Recorded Date Recorded By Document 03/13/22 11:43 AK [id number] 03/13/22 11:44 AK Document 03/29/22 09:26 KR [id number] 03/29/22 09:27 KR 03/13/22 03/29/22 11:43 09:26 Wound Care Nurse 3 #9 left 5th plantar metatarsal -Ulcer Cleansing Rinsed/ Rinsed/ Irrigated with Irrigated with Saline Saline -Foul Odor after Cleansing No -Negative Pressure Wound Therapy N/A Continue -Negative Pressure is Continuous -Regranex (If Applicable) Continue -Primary Dressing Applied Aquacel AG 4x4 -Other Dressing surgical shoe -Primary Dressing Covered/Secured with Dry Gauze, Secured with Tape -NPWT Application Charge NPWT & Debridement (nc ) -Aquacel AG 4x4 1 Pain Scale: 0-10 Numeric Is Patient Pain Free? 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 (2) Bacteremia: CODE(S): R78.81 - Bacteremia (3) Cellulitis of left lower limb: CODE(S): L03.116 - Cellulitis of left lower limb (4) Sepsis: CODE(S): A41.9 - Sepsis, unspecified organism (5) Diabetic foot infection: CODE(S): E11.628 - Type 2 diabetes mellitus with other skin complications; L08.9 - Local infection of the skin and subcutaneous tissue, unspecified (6) Type 2 diabetes mellitus with diabetic polyneuropathy: CODE(S): E11.42 - Type 2 diabetes mellitus with diabetic polyneuropathy QUALIFIERS: Diabetes mellitus intermediate insulin use: unspecified intermediate insulin use status Qualified Code(s): E11.42 - Type 2 diabetes mellitus with diabetic polyneuropathy (7) 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 POV #4 (DOS: 03/24/2022) POD #12 Left lower extremity: Slight nonpitting edema of the left lower extremity.? Erythema decrease decreased, and is now localized about the distal rim of the incision. Fifth digit amputation noted.? Wound VAC intact at the most distal aspect of the incision site with no leaks detected.? Sutures intact.? No expressible purulent drainage or malodor on examination today.? There is some maceration at the most distal aspect of the incision site today secondary to the wound VAC. Wound VAC canister demonstrates very little collection/drainage of blood. Blood culture obtained in the ED 03/24/2022 results gram-positive cocci in chains, anaerobic bottle positive.? Wound culture obtained in ED 03/24/2022 results mixed gram-positive organisms, staph aureus protein A PCR positive.? Patient has a hemoglobin A1c of 10.5%. I discussed continued diet modifications for proper glycemic control. 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 Infection: During surgical intervention 03/24/22 the tissues demonstrated normal integrity and were not easily dissectible through fascial planes with a finger as seen with typical necrotizing fasciitis cases.?He did however have soft tissue crepitus with foul odor consistent with a gas gangrene, confirmed by radiograph on 03/24/2022.? 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 WBC 16.3 with left shift prior to surgical intervention.?WBC currently within normal limits.?PICC line in place. Patient on IV antibiotics Vanco/Unasyn. Sx Cultures: Culture of wound/ulceration 03/24/2022 demonstrates mixed gram-positive organisms.?Bone culture fifth toe/fifth metatarsal demonstrates mixed gram-positive organisms.?Cultures post lavage demonstrate no growth.?Bone culture post lavage clearance fragment demonstrates no preliminary growth. Wound: Wound underwent debridement as noted in clinical panel above today. Healthy granular tissue noted with no localized signs of infection. Dressings: Wound VAC changed today.? VAC will be again changed 04/09/2022.? Incision site dressed with Betadine soaked Adaptic, 4 x 4 gauze, Kerlix, ABD, and Kirill wrap rolled onto the foot.? Dressings to be changed Saturday and . He was instructed to keep his dressings clean, dry, and intact to the left foot.? Continue to elevate the left lower extremity at all times of rest. I will look to remove sutures at next visit. Patient is to remain nonweightbearing to the left lower extremity with assistance of a knee scooter Visiting nursing to assist in dressing changes to the left foot and VAC change on 04/09/2022. He will again have VAC changed at his next wound care visit. He will return to the wound care center in 1 week for continued localized wound care. Note: [employer] speech recognition merchandiser software was used to create portions of this document. Sound-alike and misspelled words, as well as other merchandiser errors may be contained in the documentation.
== END 2022-04-08 23:59 | disposition home or self-care (01) ==
LOC: WC 08:45
PROVIDERS: PCP Internal Medicine; Referring Provider Podiatrist; Visit Provider Student in an Organized Health Care Education/Training Program
DX: A41.9 Sepsis, unspecified organism (principal); A48.0 Gas gangrene; E11.621 Type 2 diabetes mellitus with foot ulcer; Z89.422 Acquired absence of other left toe(s); L97.522 Non-pressure chronic ulcer of other part of left foot with fat layer exposed; L97.512 Non-pressure chronic ulcer of other part of right foot with fat layer exposed; E11.42 Type 2 diabetes mellitus with diabetic polyneuropathy; E11.628 Type 2 diabetes mellitus with other skin complications; Z79.4 Long term (current) use of insulin; Z94.0 Kidney transplant status; L03.116 Cellulitis of left lower limb
CPT/HCPCS: 11042; 73630; 80048; 80202; 87070; 87075; 87077; 87186; 87205

== ENCOUNTER → 2022-04-05 | Outpatient (CLI) | payer MEDICARE, SELFPAY ==
[2022-04-05 18:27] LABS: Anion Gap 7 (5-15); BUN 37 mg/dL (7-18); BUN/Creat Ratio 26.1 RATIO (10-20); Calcium,Total 9.1 mg/dL (8.5-10.1); Chloride 105 mmol/L (98-107); Creatinine, Serum 1.42 mg/dL (0.70-1.30); EST Glomerular Filtration Rate 55 mL/min (>60); Est Glom Filt Rate - Afr Amer 67 mL/min (>60); Glucose 269 mg/dL (74-106); Potassium 4.4 mmol/L (3.5-5.1); Sodium Level 137 mmol/L (136-145)
[2022-04-05 18:30] LABS: Vancomycin, Trough Level 20.1 ug/mL (5.0-15.0)
== END | disposition home or self-care (01) ==
PROVIDERS: PCP Internal Medicine; Visit Provider Internal Medicine Infectious Disease
DX: M86.172 Other acute osteomyelitis, left ankle and foot (principal); M72.6 Necrotizing fasciitis; L03.116 Cellulitis of left lower limb
CPT/HCPCS: 11042; 80048; 80202

== ENCOUNTER 2022-04-30 09:54 | Outpatient (RCR) | payer MEDICARE, MEDICAID, SELFPAY ==
[2022-04-09 10:18] LABS: Hematocrit 43.9 % (40-54); Hemoglobin 13.6 g/dL (13.0-16.5); Mean Corpuscular Hgb 28.9 pg (27.0-32.0); Mean Corpuscular Volume 93.2 fL (80-94); Mean Platelet Vol. 10.6 fl (6.2-12.0); Platelet Count 242 K/mm3 (150-450); RBC Distribution Width CV 14.2 % (11.6-14.6); Red Blood Count 4.71 M/mm3 (4.6-6.2); White Blood Count 6.3 K/mm3 (4.4-11.0)
[2022-04-09 10:22] LABS: Erythrocyte Sedimentation Rate 31 mm/hr (0-20)
[2022-04-09 10:24] LABS: Anion Gap 4 (5-15); BUN 30 mg/dL (7-18); BUN/Creat Ratio 20.3 RATIO (10-20); Calcium,Total 8.9 mg/dL (8.5-10.1); Chloride 106 mmol/L (98-107); Creatinine, Serum 1.48 mg/dL (0.70-1.30); EST Glomerular Filtration Rate 53 mL/min (>60); Est Glom Filt Rate - Afr Amer 64 mL/min (>60); Glucose 429 mg/dL (74-106); Potassium 4.3 mmol/L (3.5-5.1); Sodium Level 137 mmol/L (136-145)
[2022-04-09 10:26] LABS: Vancomycin, Trough Level 15.1 ug/mL (5.0-15.0)
[2022-04-16 10:31] LABS: Anion Gap 6 (5-15); BUN 31 mg/dL (7-18); BUN/Creat Ratio 22.1 RATIO (10-20); Calcium,Total 8.5 mg/dL (8.5-10.1); Chloride 105 mmol/L (98-107); EST Glomerular Filtration Rate 56 mL/min (>60); Erythrocyte Sedimentation Rate 33 mm/hr (0-20); Est Glom Filt Rate - Afr Amer 68 mL/min (>60); Glucose 285 mg/dL (74-106); Potassium 4.3 mmol/L (3.5-5.1); Sodium Level 138 mmol/L (136-145)
[2022-04-16 10:32] LABS: Hematocrit 45.2 % (40-54); Hemoglobin 14.4 g/dL (13.0-16.5); Mean Corp Hgb Conc 31.9 g/dL (32-36); Mean Corpuscular Hgb 29.8 pg (27.0-32.0); Mean Corpuscular Volume 93.4 fL (80-94); Mean Platelet Vol. 11.1 fl (6.2-12.0); Platelet Count 166 K/mm3 (150-450); RBC Distribution Width CV 14.3 % (11.6-14.6); RBC Distribution Width SD 48.9 fl (35.1-43.9); Red Blood Count 4.84 M/mm3 (4.6-6.2); White Blood Count 5.3 K/mm3 (4.4-11.0)
[2022-04-16 10:34] LABS: Vancomycin, Trough Level 12.6 ug/mL (5.0-15.0)
[2022-04-23 10:33] LABS: Erythrocyte Sedimentation Rate 32 mm/hr (0-20)
[2022-04-23 10:36] LABS: Hematocrit 45.8 % (40-54); Hemoglobin 14.4 g/dL (13.0-16.5); Mean Corp Hgb Conc 31.4 g/dL (32-36); Mean Corpuscular Hgb 29.5 pg (27.0-32.0); Mean Corpuscular Volume 93.9 fL (80-94); Platelet Count 210 K/mm3 (150-450); RBC Distribution Width CV 14.6 % (11.6-14.6); RBC Distribution Width SD 50.4 fl (35.1-43.9); Red Blood Count 4.88 M/mm3 (4.6-6.2); White Blood Count 6.3 K/mm3 (4.4-11.0)
[2022-04-23 10:44] LABS: Anion Gap 6 (5-15); BUN 41 mg/dL (7-18); BUN/Creat Ratio 26.8 RATIO (10-20); Calcium,Total 9.2 mg/dL (8.5-10.1); Chloride 104 mmol/L (98-107); Creatinine, Serum 1.53 mg/dL (0.70-1.30); EST Glomerular Filtration Rate 51 mL/min (>60); Est Glom Filt Rate - Afr Amer 61 mL/min (>60); Glucose 351 mg/dL (74-106); Sodium Level 136 mmol/L (136-145)
[2022-04-23 10:54] LABS: Vancomycin, Random Level 13.7 ug/mL (0.0-15.0)
[2022-04-30 10:09] LABS: Erythrocyte Sedimentation Rate 42 mm/hr (0-20)
[2022-04-30 10:11] LABS: Hematocrit 47.5 % (40-54); Mean Corp Hgb Conc 31.6 g/dL (32-36); Mean Corpuscular Hgb 29.5 pg (27.0-32.0); Mean Corpuscular Volume 93.3 fL (80-94); Mean Platelet Vol. 10.8 fl (6.2-12.0); Platelet Count 227 K/mm3 (150-450); RBC Distribution Width CV 14.6 % (11.6-14.6); RBC Distribution Width SD 50.6 fl (35.1-43.9); Red Blood Count 5.09 M/mm3 (4.6-6.2); White Blood Count 6.7 K/mm3 (4.4-11.0)
[2022-04-30 10:30] LABS: Anion Gap 7 (5-15); BUN 34 mg/dL (7-18); BUN/Creat Ratio 22.2 RATIO (10-20); Calcium,Total 9.4 mg/dL (8.5-10.1); Chloride 104 mmol/L (98-107); Creatinine, Serum 1.53 mg/dL (0.70-1.30); EST Glomerular Filtration Rate 51 mL/min (>60); Est Glom Filt Rate - Afr Amer 61 mL/min (>60); Glucose 361 mg/dL (74-106); Sodium Level 137 mmol/L (136-145)
== END 2022-05-09 23:59 ==
LOC: LABSPEC 09:54
PROVIDERS: PCP Internal Medicine; Referring Provider Internal Medicine Infectious Disease; Visit Provider Internal Medicine Infectious Disease
DX: M86.172 Other acute osteomyelitis, left ankle and foot (principal)
CPT/HCPCS: 80048; 80202; 85027; 85652

== ENCOUNTER 2022-05-09 13:00 | Outpatient (RCR) | payer MEDICARE, MEDICAID, SELFPAY ==
[2022-04-09 00:28] VITALS: BP 186/82; PULSE 95; RESP 20; TEMP 36.9; BMI 34.2
[2022-04-12 09:08] VITALS: BP 124/76; PULSE 101; TEMP 36.4; BMI 34.2
--- NOTE | 2022-04-12 12:11 | PCM.WC.PN ---
History of Present Illness Date of Service: 04/12/22 Chief Complaint: Right leg wound History of Wound: 46-year-old male with diabetic neuropathy returns to clinic today to follow-up for a left foot ulcer. He denies any changes at this time. He denies pain or other illness. He has been compliant. Patient denies any constitutional symptoms at his appointment today. Patient has a recent A1c greater than 8. Patient has a 1-year-old kidney transplant. He has been compliant with treatment at this time. Patient noted some diarrhea with the antibiotics he is taking. Denies any constitutional symptoms or new complaints at this time. 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 He states that his wound VAC came off during a dressing change and he was instructed to dress with gauze wet-to-dry dressings which he was performing for the last 2 days.? He continues to state that he feels well.? He denies any constitutional symptoms.? He states he has been receiving IV antibiotics through PICC line and will be on 6 weeks of IV antibiotics secondary to his immunosuppression.? He denies any pain today.? He has no further complaints today. Objective Data Objective Data Vital Signs: Vital Signs Temp Pulse Resp BP 97.5 F L 101 H 20 H 124/76 H 04/12/22 09:08 04/12/22 09:08 04/09/22 00:28 04/12/22 09:08 Weight: 102.058 kg Body Mass Index (BMI) 34.2 Physical Exam Narrative Patient is alert oriented to person, place and time.? Patient ambulates with assistance of a knee scooter on the left.? And diabetic shoe on the right. Vascular: There are atrophic changes of the skin such as thinning shiny taut appearance absent digital hair growth.? Pulses are grossly palpable 2 out of 4 dorsalis pedis and posterior tibial bilateral feet.? Mild +1 pitting edema to bilateral lower extremity. Neurologic: Light touch protective sensation completely absent to bilateral lower extremity. Dermatologic: Healed right hallux ulceration.? Digital wounds to left foot healed at this time.? Status post partial fifth ray amputation left foot with healthy granular wound at the distal aspect of the amputation site. Intact sutures dorsal lateral foot. No signs of infection. Musculoskeletal: No gross wound forming deformity.? Muscular strength full to bilateral lower extremity compartments.? No crepitus or pain noted to the wound or periwound areas. Const alert, oriented x3 and no apparent distress General Appearance: cooperative and comfortable HEENT normocephalic Eyes General Eye: normal appearance of both eyes Neck General: normal visual inspection Lymph Lymphatic: no lymphadenopathy noted and no lymphedema noted Resp normal respiratory effort Cardio regular rate and regular rhythm Extremity normal capillary refill, no joint enlargement and no calf tenderness Peripheral Pulses: Yes posterior tibial pulses present and dorsalis pedis pulses present Skin no rashes or lesions noted, skin turgor normal and no jaundice Wound Narrative: Left foot: Partial fifth ray resection noted.? Sutures to the dorsal aspect of the foot are intact.? Wound site measures 4.9 cm x 3.4 cm x 0.3 cm.? There is localized rubor about the wound rim.? There is no expressible purulent drainage, no malodor, no other localized signs of infection.? Wound demonstrates healthy granular layer with adequate tissue bleeding. Neuro oriented x3 and moves all extremities Debridement Note Debridement Note Wound debrided: Left partial fifth ray amputation stump Laterality: Left Wound Grade/Stage: Gustafson stage III Type of Debridement: Excisional debridement Depth: Down to and including healthy tissue and in the subcutaneous layer Percentage of wound debrided: 100 Instrument Used: 3mm curette Tissue Removed: Fibrous, devitalized subcutaneous, biofilm, slough Severity: Fat Layer Exposed Amount of bleeding with debridement: Mild Bleeding Controlled with: Compression and gauze Patient tolerated procedure: Patient tolerated procedure well Post-Debridement Measurements and Additional Note: Post-Debridement Measurements/Treatment - Nurse 1 - General Ulcer Assessment Start: 04/12/22 09:07 Freq: Status: Active Protocol: OSWALD.PAGE Activity Type Activity Date Activity User E-sign Co-sign Detail Recorded Client Recorded Date Recorded By Document 04/12/22 09:08 JOE [id number] 04/12/22 09:10 JOE 04/12/22 09:08 - Today's Visit Information Type of service Follow-up Visit (Physician/RECORD CLERK SALESPERSON ) Arrival Mode Ambulatory, Walker Patient Identification Verified (Name & Yes ) Finger Stick Blood Sugar(mg/dl) (if 180 indicated): Blood Sugar Stated by Patient Height and Weight Body Mass Index (BMI) 34.2 BMI Classification Obese Vital Signs Temperature (97.8 F-99.1 F) 97.5 F L Temperature Source Temporal Pulse Rate (60-100) 101 H Pulse Location Monitor Blood Pressure (90/60-120/80) 124/76 H Blood Pressure Mean (mm Hg) 92 Source Monitor Position Semi-Fowlers Blood Pressure Location Left Arm History Since Last Visit- (Skip if this is Patient's initial visit) Have you changed medications since your No last visit? Any new allergies or adverse reactions No Had a fall/change in ADL's that may No increase risk of falls Signs or symptoms of abuse and/or No neglect since last visit Have you been in the hospital since your No last visit? Has dressing in place as prescribed Yes Has compression in place as prescribed N/A Has offloadiing in place as prescribed N/A Experienced any changes in pain level or No management Left Footwear Regular Shoe Right Footwear No Footwear Pain Scale: 0-10 Numeric Is Patient Pain Free? Yes WC - Nurse 1 - General Ulcer Measurement Start: 04/12/22 09:07 Freq: Status: Active Protocol: Activity Type Activity Date Activity User E-sign Co-sign Detail Recorded Client Recorded Date Recorded By Document 04/12/22 09:08 JOE [id number] 04/12/22 09:10 JOE 04/12/22 09:08 Wound Center Nurse 1 #9 left 5th plantar metatarsal -Current Size (cm) - Length 4 -Current Size (cm) - Width 2.7 -Current Size (cm) - Depth 0.4 -Total Square Cm 10.8 -Exudate Amt Medium -Exudate Type Serosanguineous -Wound Margin Distinct, Outline Attached -Granulation Amt Medium (34-66%) -Granulation Quality [place] -Necrosis Amt Small (1-33%) -Necrotic Tissue Type Adherent Slough -Texture (Dunia-wound Skin Appearance) Assessed, Scarring -Moisture ([place]ia-wound Skin Appearance) No Abnormality, Assessed -Color ([place]ia-wound Skin Appearance) No Abnormality, Assessed -Temperature ([place]-wound Skin No Abnormality Appearance) (Pt Warm) -Tenderness on Palpation (Dunia-wound No Skin Appearance) -Ulcer Cleansing Rinsed/ Irrigated with Saline -Foul Odor after Cleansing No -Anesthetic Used 5% Lidocaine Gel WC - Nurse 3 - General Ulcer D/C NN Start: 04/12/22 09:07 Freq: Status: Active Protocol: Activity Type Activity Date Activity User E-sign Co-sign Detail Recorded Client Recorded Date Recorded By Document 04/12/22 10:07 JOE [id number] 04/12/22 10:08 JOE 04/12/22 10:07 Wound Care Nurse 3 -Ulcer Cleansing Rinsed/ Irrigated with Saline -Negative Pressure Wound Therapy Continue -Setting (mmHg) 150 -Negative Pressure is Continuous -Regranex (If Applicable) Continue -NPWT Application Charge NPWT & Debridement (nc ) Pain Scale: 0-10 Numeric Is Patient Pain Free? 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 s/p I&D gas gangrene left foot with partial fifth ray amputation and excision of chronic diabetic ulceration.? POV #5 (DOS: 03/24/2022) POD #19 Left lower extremity: Slight nonpitting edema of the left lower extremity. Fifth digit amputation noted.? Wound VAC intact at the most distal aspect of the incision site with no leaks detected.? Sutures intact.? No expressible purulent drainage or malodor on examination today.?Wound VAC canister demonstrates very little collection/drainage of blood. Patient has a hemoglobin A1c of 10.5%.? I discussed continued diet modifications for proper glycemic control.? 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 Infection: During surgical intervention 03/24/22 the tissues demonstrated normal integrity and were not easily dissectible through fascial planes with a finger as seen with typical necrotizing fasciitis cases.?He did however have soft tissue crepitus with foul odor consistent with a gas gangrene, confirmed by radiograph on 03/24/2022.? 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 WBC 16.3 with left shift prior to surgical intervention.?WBC currently within normal limits.?PICC line in place. Patient on IV antibiotics Vanco/Unasyn. Sx Cultures: Culture of wound/ulceration &?Bone culture fifth toe/fifth metatarsal demonstrates staph epi, Enterococcus faecalis, Streptococcus mitis/oralis, Turicella otitidis, Enterococcus casseliflavius, Peptostreptococcus prevotil, Prevotella bivia. Cultures post surgical clearance demonstrate no growth. Blood cultures: Demonstrate no growth Wound: Wound underwent debridement as noted in clinical panel above today. Healthy granular tissue noted with no localized signs of infection. Wound is granulating in well. Dressings: Wound VAC changed today.? VAC will be again changed 04/16/2022.? Incision site dressed with Betadine soaked Adaptic, 4 x 4 gauze, Kerlix, ABD, and Kirill wrap rolled onto the foot.? Dressings to be changed Saturday and .? He was instructed to keep his dressings clean, dry, and intact to the left foot.? Continue to elevate the left lower extremity at all times of rest.? I will look to remove sutures at next visit. Patient is to remain nonweightbearing to the left lower extremity with assistance of a knee scooter Visiting nursing to assist in dressing changes to the left foot and VAC change on 04/16/2022.? He will again have VAC changed at his next wound care visit. He will return to the wound care center in 1 week for continued localized wound care. Note: [employer] speech recognition tire buffer software was used to create portions of this document. Sound-alike and misspelled words, as well as other tire buffer errors may be contained in the documentation.
[2022-04-19 09:07] VITALS: BP 152/84; PULSE 74; TEMP 36.1; BMI 34.2
--- NOTE | 2022-04-19 09:25 | PCM.WC.PN ---
History of Present Illness Date of Service: 04/19/22 Chief Complaint: Right leg wound History of Wound: 46-year-old male with diabetic neuropathy returns to clinic today to follow-up for a left foot ulcer. He denies any changes at this time. He denies pain or other illness. He has been compliant. Patient denies any constitutional symptoms at his appointment today. Patient has a recent A1c greater than 8. Patient has a 1-year-old kidney transplant. He has been compliant with treatment at this time. Patient noted some diarrhea with the antibiotics he is taking. Denies any constitutional symptoms or new complaints at this time. 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 Objective Data Objective Data Vital Signs: Vital Signs Temp Pulse Resp BP 97.0 F L 74 20 H 152/84 H 04/19/22 09:07 04/19/22 09:07 04/09/22 00:28 04/19/22 09:07 Weight: 102.058 kg Body Mass Index (BMI) 34.2 Physical Exam Narrative Patient is alert oriented to person, place and time.? Patient ambulates with assistance of a knee scooter on the left.? And diabetic shoe on the right. Vascular: There are atrophic changes of the skin such as thinning shiny taut appearance absent digital hair growth.? Pulses are grossly palpable 2 out of 4 dorsalis pedis and posterior tibial bilateral feet.? Mild +1 pitting edema to bilateral lower extremity. Neurologic: Light touch protective sensation completely absent to bilateral lower extremity. Dermatologic: Healed right hallux ulceration.? Digital wounds to left foot healed at this time.? Status post partial fifth ray amputation left foot with healthy granular wound at the distal aspect of the amputation site. Intact sutures dorsal lateral foot. No signs of infection. Musculoskeletal: No gross wound forming deformity.? Muscular strength full to bilateral lower extremity compartments.? No crepitus or pain noted to the wound or periwound areas. Const alert, oriented x3 and no apparent distress General Appearance: cooperative and comfortable HEENT normocephalic Eyes General Eye: normal appearance of both eyes Neck General: normal visual inspection Lymph Lymphatic: no lymphadenopathy noted and no lymphedema noted Resp normal respiratory effort Cardio regular rate and regular rhythm Extremity normal capillary refill, no joint enlargement and no calf tenderness Skin no rashes or lesions noted, skin turgor normal and no jaundice Wound Narrative: Left foot: Partial fifth ray resection noted.? Sutures to the dorsal aspect of the foot are intact.? Wound site measures 4.9 cm x 3.4 cm x 0.3 cm.? There is localized rubor about the wound rim.? There is no expressible purulent drainage, no malodor, no other localized signs of infection.? Wound demonstrates healthy granular layer with adequate tissue bleeding. Neuro oriented x3 and moves all extremities Debridement Note Debridement Note Wound debrided: Left partial fifth ray Laterality: Left Wound Grade/Stage: Gustafson stage III Type of Debridement: Excisional debridement Anesthesia Used: 5% Lidocaine Gel Depth: Down to and including healthy tissue and in the subcutaneous layer Percentage of wound debrided: 100 Instrument Used: 3mm curette Tissue Removed: Fibrous, devitalized subcutaneous, biofilm, slough Severity: Fat Layer Exposed Amount of bleeding with debridement: Mild Bleeding Controlled with: Compression and gauze Patient tolerated procedure: Patient tolerated procedure well Post-Debridement Measurements and Additional Note: Post-Debridement Measurements/Treatment - Nurse 1 - General Ulcer Assessment Start: 04/12/22 09:07 Freq: Status: Active Protocol: HOLLY Activity Type Activity Date Activity User E-sign Co-sign Detail Recorded Client Recorded Date Recorded By Document 04/12/22 09:08 JOE [id number] 04/12/22 09:10 KR Document 04/19/22 09:07 JOE [id number] 04/19/22 09:08 JEO 04/12/22 04/19/22 09:08 09:07 - Today's Visit Information Type of service Follow-up Visit Follow-up Visit (Physician/GEOTHERMAL OPERATING ENGINEER (Physician/GEOTHERMAL OPERATING ENGINEER ) ) Arrival Mode Ambulatory, Ambulatory, Walker Walker Patient Identification Verified (Name & Yes Yes ) Finger Stick Blood Sugar(mg/dl) (if 180 indicated): Blood Sugar Stated by Patient Height and Weight Body Mass Index (BMI) 34.2 34.2 BMI Classification Obese Obese Vital Signs Temperature (97.8 F-99.1 F) 97.5 F L 97.0 F L Temperature Source Temporal Temporal Pulse Rate (60-100) 101 H 74 Pulse Location Monitor Monitor Blood Pressure (90/60-120/80) 124/76 H 152/84 H Blood Pressure Mean (mm Hg) 92 106 Source Monitor Monitor Position Semi-Fowlers Sitting Blood Pressure Location Left Arm Right Arm History Since Last Visit- (Skip if this is Patient's initial visit) Have you changed medications since your No No last visit? Any new allergies or adverse reactions No No Had a fall/change in ADL's that may No No increase risk of falls Signs or symptoms of abuse and/or No No neglect since last visit Have you been in the hospital since your No No last visit? Has dressing in place as prescribed Yes Yes Has compression in place as prescribed N/A N/A Has offloadiing in place as prescribed N/A N/A Experienced any changes in pain level or No No management Left Footwear Regular Shoe Regular Shoe Right Footwear No Footwear Regular Shoe Pain Scale: 0-10 Numeric Is Patient Pain Free? Yes Yes WC - Nurse 1 - General Ulcer Measurement Start: 04/12/22 09:07 Freq: Status: Active Protocol: Activity Type Activity Date Activity User E-sign Co-sign Detail Recorded Client Recorded Date Recorded By Document 04/12/22 09:08 JOE [id number] 04/12/22 09:10 KR Document 04/19/22 09:07 JOE [id number] 04/19/22 09:08 KR 04/12/22 04/19/22 09:08 09:07 Wound Center Nurse 1 #9 left 5th plantar metatarsal -Current Size (cm) - Length 4 3.4 -Current Size (cm) - Width 2.7 2.5 -Current Size (cm) - Depth 0.4 0.3 -Total Square Cm 10.8 8.50 -Exudate Amt Medium Medium -Exudate Type Serosanguineous Serosanguineous -Wound Margin Distinct, Distinct, Outline Outline Attached Attached -Granulation Amt Medium (34-66%) Medium (34-66%) -Granulation Quality [place] -Necrosis Amt Small (1-33%) Medium (34-66%) -Necrotic Tissue Type Adherent Slough Adherent Slough -Texture ([place]-wound Skin Appearance) Assessed, Assessed, Scarring Scarring -Moisture ([place]ia-wound Skin Appearance) No Abnormality, No Abnormality, Assessed Assessed -Color ([place]ia-wound Skin Appearance) No Abnormality, No Abnormality, Assessed Assessed -Temperature ([place]ia-wound Skin No Abnormality No Abnormality Appearance) (Pt Warm) (Pt Warm) -Tenderness on Palpation (Dunia-wound No No Skin Appearance) -Ulcer Cleansing Rinsed/ Soap and Water Irrigated with Saline -Foul Odor after Cleansing No No -Anesthetic Used 5% Lidocaine 5% Lidocaine Gel Gel WC - Nurse 2 - General Ulcer CM Notes Start: 04/12/22 09:07 Freq: Status: Active Protocol: Activity Type Activity Date Activity User E-sign Co-sign Detail Recorded Client Recorded Date Recorded By Document 04/12/22 12:28 JAZZ [id number] 04/12/22 12:29 JAZZ 04/12/22 12:28 Wound Center Nurse 2 -Time 09:56 -Correct Patient Yes -Correct Side, Site, Position Yes -Correct Procedure Yes -Procedure Performed Yes -Type of Procedure Debridement -Clinical Debridement Subcutaneous -Tissue Removed Subcutaneous -Post Debridement (cm) - Length 4.9 -Post Debridement (cm) - Width 3.4 -Post Debridement (cm) - Depth 0.5 -Total Square (Post) (cm) 16.66 -Area of Debridement (cm) - Length 4.9 -Area of Debridement (cm) - Width 3.4 -Total Square (Area) (cm) 16.66 -Tunneling No -Undermining/Tunneling No -Circular Undermining No -Wound/Ulcer Outcome Not Healed -Ulcer Cleansing Rinsed/ Irrigated with Saline -Foul Odor after Cleansing No -Bioengineered Tissue No -Bleeding Controlled with Pressure -Treatment Response Procedure Tolerated Well -Debridement - Subq, 1st 20sq cm Yes Pain Scale: 0-10 Numeric Is Patient Pain Free? Yes WC - Nurse 3 - General Ulcer D/C NN Start: 04/12/22 09:07 Freq: Status: Active Protocol: Activity Type Activity Date Activity User E-sign Co-sign Detail Recorded Client Recorded Date Recorded By Document 04/12/22 10:07 JOE [id number] 04/12/22 10:08 JOE 04/12/22 10:07 Wound Care Nurse 3 #9 left 5th plantar metatarsal -Ulcer Cleansing Rinsed/ Irrigated with Saline -Negative Pressure Wound Therapy Continue -Setting (mmHg) 150 -Negative Pressure is Continuous -Regranex (If Applicable) Continue -NPWT Application Charge NPWT & Debridement (nc ) Pain Scale: 0-10 Numeric Is Patient Pain Free? 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 s/p I&D gas gangrene left foot with partial fifth ray amputation and excision of chronic diabetic ulceration.? POV #6 (DOS: 03/24/2022) POD #26 Left lower extremity: No edema noted. Fifth digit amputation noted.? Wound VAC intact at the most distal aspect of the incision site with no leaks detected. No expressible purulent drainage or malodor on examination today.?Wound VAC canister demonstrates very little collection/drainage of blood. Patient has a hemoglobin A1c of 10.5%.? I discussed continued diet modifications for proper glycemic control.?He was encouraged to remain following with his director of sleep so that he may achieve a lower A1c. Infection: During surgical intervention 03/24/22 the tissues demonstrated normal integrity and were not easily dissectible through fascial planes with a finger as seen with typical necrotizing fasciitis cases.?He did however have soft tissue crepitus with foul odor consistent with a gas gangrene, confirmed by radiograph on 03/24/2022.? 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 WBC 16.3 with left shift prior to surgical intervention.?WBC currently within normal limits.?PICC line in place. Patient on IV antibiotics Vanco/Unasyn. Sx Cultures: Culture of wound/ulceration &?Bone culture fifth toe/fifth metatarsal demonstrates staph epi, Enterococcus faecalis, Streptococcus mitis/oralis, Turicella otitidis, Enterococcus casseliflavius, Peptostreptococcus prevotil, Prevotella bivia. Cultures post surgical clearance demonstrate no growth. Blood cultures: Demonstrate no growth Wound: Wound underwent debridement as noted in clinical panel above today. Healthy granular tissue noted with no localized signs of infection. Wound is continuing to granulate in well. No signs of infection. Sutures were removed today. I am considering having the patient begin hyperbaric dives to aid in his healing status. Dressings: Wound VAC changed today.? VAC will be again changed 04/23/2022.? Incision site dressed with Betadine soaked Adaptic, 4 x 4 gauze, Kerlix, ABD, and Kirill wrap rolled onto the foot.? Dressings to be changed Saturday and .? He was instructed to keep his dressings clean, dry, and intact to the left foot.?Continue to elevate the left lower extremity at all times of rest. Patient is to remain nonweightbearing to the left lower extremity with assistance of a knee scooter Visiting nursing to assist in dressing changes to the left foot and VAC change on 04/23/2022.?He will again have VAC changed at his next wound care visit. He will return to the wound care center in 1 week for continued localized wound care. Note: [employer] speech recognition senior licensing manager software was used to create portions of this document. Sound-alike and misspelled words, as well as other senior licensing manager errors may be contained in the documentation.
[2022-04-26 09:34] VITALS: BP 199/60; PULSE 87; TEMP 36.3; BMI 34.2
--- NOTE | 2022-04-26 10:43 | PCM.WC.PN ---
History of Present Illness Date of Service: 04/26/22 Chief Complaint: Right leg wound History of Wound: 46-year-old male with diabetic neuropathy returns to clinic today to follow-up for a left foot ulcer. He denies any changes at this time. He denies pain or other illness. He has been compliant. Patient denies any constitutional symptoms at his appointment today. Patient has a recent A1c greater than 8. Patient has a 1-year-old kidney transplant. He has been compliant with treatment at this time. Patient noted some diarrhea with the antibiotics he is taking. Denies any constitutional symptoms or new complaints at this time. 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 He states his antibiotics will be finished in 2 weeks. He continues to deny any pain today.?He has no further complaints today. Objective Data Objective Data Vital Signs: Vital Signs Temp Pulse Resp BP 97.4 F L 87 20 H 199/60 H 04/26/22 09:34 04/26/22 09:34 04/09/22 00:28 04/26/22 09:34 Weight: 102.058 kg Body Mass Index (BMI) 34.2 Physical Exam Narrative Patient is alert oriented to person, place and time.? Patient ambulates with assistance of a knee scooter on the left.? And diabetic shoe on the right. Vascular: There are atrophic changes of the skin such as thinning shiny taut appearance absent digital hair growth.? Pulses are grossly palpable 2 out of 4 dorsalis pedis and posterior tibial bilateral feet.? Mild +1 pitting edema to bilateral lower extremity. Neurologic: Light touch protective sensation completely absent to bilateral lower extremity. Dermatologic: Healed right hallux ulceration.? Digital wounds to left foot healed at this time.? Status post partial fifth ray amputation left foot with healthy granular wound at the distal aspect of the amputation site. Lateral fourth digit demonstrates hemorrhagic blister with no local signs of infection. No signs of infection. Musculoskeletal: No gross wound forming deformity.? Muscular strength full to bilateral lower extremity compartments.? No crepitus or pain noted to the wound or periwound areas. Const alert, oriented x3 and no apparent distress General Appearance: cooperative and comfortable HEENT normocephalic Eyes General Eye: normal appearance of both eyes Neck General: normal visual inspection Lymph Lymphatic: no lymphadenopathy noted and no lymphedema noted Resp normal respiratory effort Cardio regular rate and regular rhythm Extremity normal capillary refill, no joint enlargement and no calf tenderness Skin no rashes or lesions noted, skin turgor normal and no jaundice Wound Narrative: Left foot: Partial fifth ray resection noted.? Wound site measures 4.8 cm x 3.0 cm x 0.2 cm.? There is localized rubor about the wound rim.? There is no expressible purulent drainage, no malodor, no other localized signs of infection.? Wound demonstrates healthy granular layer with adequate tissue bleeding. There is a hemorrhagic blister noted to the dorsal lateral aspect of the fourth digit with no local signs of infection. Neuro oriented x3 and moves all extremities Debridement Note Debridement Note Wound debrided: Lateral left foot wound/fifth metatarsal stump Laterality: Left Wound Grade/Stage: Gustafson stage III Type of Debridement: Excisional debridement Anesthesia Used: 5% Lidocaine Gel Depth: Down to and including healthy tissue and in the subcutaneous layer Percentage of wound debrided: 100 Instrument Used: 3mm curette Tissue Removed: Fibrous, devitalized subcutaneous, biofilm, slough Severity: Fat Layer Exposed Amount of bleeding with debridement: Mild Bleeding Controlled with: Compression and gauze Patient tolerated procedure: Patient tolerated procedure well Post-Debridement Measurements and Additional Note: Post-Debridement Measurements/Treatment - Nurse 1 - General Ulcer Assessment Start: 04/12/22 09:07 Freq: Status: Active Protocol: HOLLY Activity Type Activity Date Activity User E-sign Co-sign Detail Recorded Client Recorded Date Recorded By Document 04/12/22 09:08 JOE [id number] 04/12/22 09:10 KR Document 04/19/22 09:07 JOE [id number] 04/19/22 09:08 KR Document 04/26/22 09:34 KR [id number] 04/26/22 09:36 KR 04/12/22 04/19/22 04/26/22 09:08 09:07 09:34 - Today's Visit Information Type of service Follow-up Visit Follow-up Visit Follow-up Visit (Physician/AIRPLANE AND ENGINE INSPECTOR (Physician/AIRPLANE AND ENGINE INSPECTOR (Physician/AIRPLANE AND ENGINE INSPECTOR ) ) ) Arrival Mode Ambulatory, Ambulatory, Ambulatory Walker Walker Patient Identification Verified (Name & Yes Yes Yes ) Finger Stick Blood Sugar(mg/dl) (if 180 indicated): Blood Sugar Stated by Patient Height and Weight Body Mass Index (BMI) 34.2 34.2 34.2 BMI Classification Obese Obese Obese Vital Signs Temperature (97.8 F-99.1 F) 97.5 F L 97.0 F L 97.4 F L Temperature Source Temporal Temporal Temporal Pulse Rate (60-100) 101 H 74 87 Pulse Location Monitor Monitor Monitor Blood Pressure (90/60-120/80) 124/76 H 152/84 H 199/60 H Blood Pressure Mean (mm Hg) 92 106 106 Source Monitor Monitor Monitor Position Semi-Fowlers Sitting Sitting Blood Pressure Location Left Arm Right Arm Left Arm History Since Last Visit- (Skip if this is Patient's initial visit) Have you changed medications since your No No No last visit? Any new allergies or adverse reactions No No No Had a fall/change in ADL's that may No No No increase risk of falls Signs or symptoms of abuse and/or No No No neglect since last visit Have you been in the hospital since your No No No last visit? Has dressing in place as prescribed Yes Yes Yes Has compression in place as prescribed N/A N/A Yes Has offloadiing in place as prescribed N/A N/A N/A Experienced any changes in pain level or No No No management Left Footwear Regular Shoe Regular Shoe Right Footwear No Footwear Regular Shoe Pain Scale: 0-10 Numeric Is Patient Pain Free? Yes Yes Yes WC - Nurse 1 - General Ulcer Measurement Start: 04/12/22 09:07 Freq: Status: Active Protocol: Activity Type Activity Date Activity User E-sign Co-sign Detail Recorded Client Recorded Date Recorded By Document 04/12/22 09:08 JOE [id number] 04/12/22 09:10 KR Document 04/19/22 09:07 JOE [id number] 04/19/22 09:08 KR Document 04/26/22 09:34 KR [id number] 04/26/22 09:36 KR 04/12/22 04/19/22 04/26/22 09:08 09:07 09:34 Wound Center Nurse 1 #10 LL FOOT -Current Size (cm) - Length 4 3.4 4.8 -Current Size (cm) - Width 2.7 2.5 3 -Current Size (cm) - Depth 0.4 0.3 0.2 -Total Square Cm 10.8 8.50 14.4 -Exudate Amt Medium Medium Medium -Exudate Type Serosanguineous Serosanguineous Serosanguineous -Wound Margin Distinct, Distinct, Distinct, Outline Outline Outline Attached Attached Attached -Granulation Amt Medium (34-66%) Medium (34-66%) Medium (34-66%) -Granulation Quality [place] -Necrosis Amt Small (1-33%) Medium (34-66%) Medium (34-66%) -Necrotic Tissue Type Adherent Slough Adherent Slough Adherent Slough -Texture ([place]-wound Skin Appearance) Assessed, Assessed, Assessed, Scarring Scarring Scarring -Moisture ([place]-wound Skin Appearance) No Abnormality, No Abnormality, No Abnormality, Assessed Assessed Assessed -Color ([place]-wound Skin Appearance) No Abnormality, No Abnormality, No Abnormality, Assessed Assessed Assessed -Temperature ([place]-wound Skin No Abnormality No Abnormality No Abnormality Appearance) (Pt Warm) (Pt Warm) (Pt Warm) -Tenderness on Palpation ([place]-wound No No No Skin Appearance) -Ulcer Cleansing Rinsed/ Soap and Water Soap and Water Irrigated with Saline -Foul Odor after Cleansing No No No -Anesthetic Used 5% Lidocaine 5% Lidocaine 5% Lidocaine Gel Gel Gel WC - Nurse 2 - General Ulcer CM Notes Start: 04/12/22 09:07 Freq: Status: Active Protocol: Activity Type Activity Date Activity User E-sign Co-sign Detail Recorded Client Recorded Date Recorded By Document 04/12/22 12:28 PL [id number] 04/12/22 12:29 PL Document 04/19/22 10:08 [id number] 04/19/22 10:09 PL 04/12/22 04/19/22 12:28 10:08 Wound Center Nurse 2 #10 LL FOOT -Time 09:56 09:27 -Correct Patient Yes Yes -Correct Side, Site, Position Yes Yes -Correct Procedure Yes Yes -Procedure Performed Yes Yes -Type of Procedure Debridement Debridement -Clinical Debridement Subcutaneous Subcutaneous -Tissue Removed Subcutaneous Subcutaneous -Post Debridement (cm) - Length 4.9 4.7 -Post Debridement (cm) - Width 3.4 3.2 -Post Debridement (cm) - Depth 0.5 0.3 -Total Square (Post) (cm) 16.66 15.04 -Area of Debridement (cm) - Length 4.9 4.7 -Area of Debridement (cm) - Width 3.4 3.2 -Total Square (Area) (cm) 16.66 15.04 -Tunneling No No -Undermining/Tunneling No No -Circular Undermining No No -Wound/Ulcer Outcome Not Healed Not Healed -Ulcer Cleansing Rinsed/ Rinsed/ Irrigated with Irrigated with Saline Saline -Foul Odor after Cleansing No No -Bioengineered Tissue No No -Bleeding Controlled with Pressure Pressure -Treatment Response Procedure Procedure Tolerated Well Tolerated Well -Debridement - Subq, 1st 20sq cm Yes Yes Pain Scale: 0-10 Numeric Is Patient Pain Free? Yes Yes WC - Nurse 3 - General Ulcer D/C NN Start: 04/12/22 09:07 Freq: Status: Active Protocol: Activity Type Activity Date Activity User E-sign Co-sign Detail Recorded Client Recorded Date Recorded By Document 04/12/22 10:07 KR [id number] 04/12/22 10:08 KR Document 04/19/22 09:53 JF [id number] 04/19/22 09:54 JF Edit Result 04/19/22 09:53 JF (1) [id number] 04/20/22 14:36 PL Document 04/26/22 10:18 KR [id number] 04/26/22 10:18 KR (1) #10 LL FOOT - NPWT Application Charge NPWT </= 50 sq cm => NPWT & Debridement ($) => (nc) 04/12/22 04/19/22 04/26/22 10:07 09:53 10:18 Wound Care Nurse 3 #10 LL FOOT -Ulcer Cleansing Rinsed/ Rinsed/ Irrigated with Irrigated with Saline Saline -Negative Pressure Wound Therapy Continue Continue Continue -Setting (mmHg) 150 150 150 -Negative Pressure is Continuous Continuous Continuous -Regranex (If Applicable) Continue Continue -NPWT Application Charge NPWT & NPWT & NPWT & Debridement (nc Debridement (nc Debridement (nc ) ) ) Left -Compression Wrap Kirill Wrap Pain Scale: 0-10 Numeric Is Patient Pain Free? 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 s/p I&D gas gangrene left foot with partial fifth ray amputation and excision of chronic diabetic ulceration.? POV #7 (DOS: 03/24/2022) POD #32 Left lower extremity: No edema noted. Fifth digit amputation noted.? Wound VAC intact at the most distal aspect of the incision site with no leaks detected. No expressible purulent drainage or malodor on examination today.?Wound VAC canister demonstrates very little collection/drainage of blood. He has a hemorrhagic blister to the dorsal lateral fourth digit. He denies any thing rubbing on the site or any trauma to the toe. No signs of infection. Recommended leaving blister intact and continuing to monitor. Site dressed with dry sterile dressing. Patient has a hemoglobin A1c of 10.5%.? I discussed continued diet modifications for proper glycemic control.?He was encouraged to remain following with his hand mixer so that he may achieve a lower A1c. Infection: During surgical intervention 03/24/22 the tissues demonstrated normal integrity and were not easily dissectible through fascial planes with a finger as seen with typical necrotizing fasciitis cases.?He did however have soft tissue crepitus with foul odor consistent with a gas gangrene, confirmed by radiograph on 03/24/2022.? 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 WBC 16.3 with left shift prior to surgical intervention.?WBC currently within normal limits.?PICC line in place. Patient on IV antibiotics Vanco/Unasyn. And will finish in 2 weeks Sx Cultures: Culture of wound/ulceration &?Bone culture fifth toe/fifth metatarsal demonstrates staph epi, Enterococcus faecalis, Streptococcus mitis/oralis, Turicella otitidis, Enterococcus casseliflavius, Peptostreptococcus prevotil, Prevotella bivia. Cultures post surgical clearance demonstrate no growth. Blood cultures: Demonstrate no growth Wound: Wound underwent debridement as noted in clinical panel above today. Healthy granular tissue noted with no localized signs of infection. Wound is continuing to granulate in well. No signs of infection. Wound measures 4.8 cm x 3 cm x 0.2 cm. I am considering having the patient begin hyperbaric dives to aid in his healing status. Dressings: Wound VAC changed today.? VAC will be again changed 04/30/2022.?Dressings to be changed Saturday and .? He was instructed to keep his dressings clean, dry, and intact to the left foot.?Continue to elevate the left lower extremity at all times of rest. Patient is to remain nonweightbearing to the left lower extremity with assistance of a knee scooter Visiting nursing to assist in dressing changes to the left foot and VAC change on 04/30/2022.?He will again have VAC changed at his next wound care visit. He will return to the wound care center in 1 week for continued localized wound care. Note: [employer] speech recognition millwright instructor software was used to create portions of this document. Sound-alike and misspelled words, as well as other millwright instructor errors may be contained in the documentation.
[2022-05-03 09:51] VITALS: BP 136/77; PULSE 77; TEMP 35.6; BMI 34.2
--- NOTE | 2022-05-03 13:23 | PN.PCM_ITS ---
History of Present Illness Date of Service: 05/03/22 Chief Complaint: Right leg wound History of Wound: 46-year-old male with diabetic neuropathy returns to clinic today to follow-up for a left foot ulcer. He denies any changes at this time. He denies pain or other illness. He has been compliant. Patient denies any constitutional symptoms at his appointment today. Patient has a recent A1c greater than 8. Patient has a 1-year-old kidney transplant. He has been compliant with treatment at this time. Patient noted some diarrhea with the antibiotics he is taking. Denies any constitutional symptoms or new complaints at this time. 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 He states his antibiotics will be finished in 2 days. He continues to deny any pain today.?He has no further complaints today. Objective Data Objective Data Vital Signs: Vital Signs Temp Pulse Resp BP 96.0 F L 77 20 H 136/77 H 05/03/22 09:51 05/03/22 09:51 04/09/22 00:28 05/03/22 09:51 Weight: 102.058 kg Body Mass Index (BMI) 34.2 Physical Exam Narrative Patient is alert oriented to person, place and time.? Patient ambulates with assistance of a knee scooter on the left.? And diabetic shoe on the right. Vascular: There are atrophic changes of the skin such as thinning shiny taut appearance absent digital hair growth.? Pulses are grossly palpable 2 out of 4 dorsalis pedis and posterior tibial bilateral feet.? Mild +1 pitting edema to bilateral lower extremity. Neurologic: Light touch protective sensation completely absent to bilateral lower extremity. Dermatologic: Healed right hallux ulceration.? Digital wounds to left foot healed at this time.? Status post partial fifth ray amputation left foot with healthy granular wound at the distal aspect of the amputation site. Lateral fourth digit demonstrates healed blister with No signs of infection. Musculoskeletal: No gross wound forming deformity.? Muscular strength full to bilateral lower extremity compartments.? No crepitus or pain noted to the wound or periwound areas. Const alert, oriented x3 and no apparent distress General Appearance: cooperative and comfortable HEENT normocephalic Eyes General Eye: normal appearance of both eyes Neck General: normal visual inspection Lymph Lymphatic: no lymphadenopathy noted and no lymphedema noted Resp normal respiratory effort Cardio regular rate and regular rhythm Extremity normal capillary refill, no joint enlargement and no calf tenderness Skin no rashes or lesions noted, skin turgor normal and no jaundice Wound Narrative: Left foot: Partial fifth ray resection noted.? Wound site measures 4.8 cm x 3.0 cm x 0.2 cm.? There is localized rubor about the wound rim.? There is no expressible purulent drainage, no malodor, no other localized signs of infection.? Wound demonstrates healthy granular layer with adequate tissue bleeding. There is a healed blister noted to the dorsal lateral aspect of the fourth digit with no local signs of infection. Neuro oriented x3 and moves all extremities Debridement Note Debridement Note Wound debrided: Left lateral foot fifth met amputation site Laterality: Left Wound Grade/Stage: Gustafson stage III Type of Debridement: Excisional debridement Anesthesia Used: 5% Lidocaine Gel Depth: Down to and including healthy tissue and in the subcutaneous layer Percentage of wound debrided: 100 Instrument Used: 3mm curette Tissue Removed: Fibrous, devitalized subcutaneous, biofilm, slough Severity: Fat Layer Exposed Amount of bleeding with debridement: Mild Bleeding Controlled with: Compression and gauze Patient tolerated procedure: Patient tolerated procedure well Post-Debridement Measurements and Additional Note: Post-Debridement Measurements/Treatment OSWALD - Nurse 1 - General Ulcer Assessment Start: 04/12/22 09:07 Freq: Status: Active Protocol: HOLLY Activity Type Activity Date Activity User E-sign Co-sign Detail Recorded Client Recorded Date Recorded By Document 04/12/22 09:08 JOE [id number] 04/12/22 09:10 KR Document 04/19/22 09:07 JOE [id number] 04/19/22 09:08 KR Document 04/26/22 09:34 KR [id number] 04/26/22 09:36 KR Document 05/03/22 09:51 KR [id number] 05/03/22 09:58 KR 04/12/22 04/19/22 04/26/22 09:08 09:07 09:34 - Today's Visit Information Type of service Follow-up Visit Follow-up Visit Follow-up Visit (Physician/DATA ANALYSIS MANAGER (Physician/DATA ANALYSIS MANAGER (Physician/DATA ANALYSIS MANAGER ) ) ) Arrival Mode Ambulatory, Ambulatory, Ambulatory Walker Walker Patient Identification Verified (Name & Yes Yes Yes ) Finger Stick Blood Sugar(mg/dl) (if 180 indicated): Blood Sugar Stated by Patient Height and Weight Body Mass Index (BMI) 34.2 34.2 34.2 BMI Classification Obese Obese Obese Vital Signs Temperature (97.8 F-99.1 F) 97.5 F L 97.0 F L 97.4 F L Temperature Source Temporal Temporal Temporal Pulse Rate (60-100) 101 H 74 87 Pulse Location Monitor Monitor Monitor Blood Pressure (90/60-120/80) 124/76 H 152/84 H 199/60 H Blood Pressure Mean (mm Hg) 92 106 106 Source Monitor Monitor Monitor Position Semi-Fowlers Sitting Sitting Blood Pressure Location Left Arm Right Arm Left Arm History Since Last Visit- (Skip if this is Patient's initial visit) Have you changed medications since your No No No last visit? Any new allergies or adverse reactions No No No Had a fall/change in ADL's that may No No No increase risk of falls Signs or symptoms of abuse and/or No No No neglect since last visit Have you been in the hospital since your No No No last visit? Has dressing in place as prescribed Yes Yes Yes Has compression in place as prescribed N/A N/A Yes Has offloadiing in place as prescribed N/A N/A N/A Experienced any changes in pain level or No No No management Left Footwear Regular Shoe Regular Shoe Right Footwear No Footwear Regular Shoe Pain Scale: 0-10 Numeric Is Patient Pain Free? Yes Yes Yes 05/03/22 09:51 - Today's Visit Information Type of service Follow-up Visit (Physician/DATA ANALYSIS MANAGER ) Arrival Mode Ambulatory Patient Identification Verified (Name & Yes ) Finger Stick Blood Sugar(mg/dl) (if indicated): Blood Sugar Height and Weight Body Mass Index (BMI) 34.2 BMI Classification Obese Vital Signs Temperature (97.8 F-99.1 F) 96.0 F L Temperature Source Temporal Pulse Rate (60-100) 77 Pulse Location Monitor Blood Pressure (90/60-120/80) 136/77 H Blood Pressure Mean (mm Hg) 96 Source Monitor Position Semi-Fowlers Blood Pressure Location Right Arm History Since Last Visit- (Skip if this is Patient's initial visit) Have you changed medications since your No last visit? Any new allergies or adverse reactions No Had a fall/change in ADL's that may No increase risk of falls Signs or symptoms of abuse and/or No neglect since last visit Have you been in the hospital since your No last visit? Has dressing in place as prescribed Yes Has compression in place as prescribed N/A Has offloadiing in place as prescribed N/A Experienced any changes in pain level or No management Left Footwear Regular Shoe Right Footwear Pain Scale: 0-10 Numeric Is Patient Pain Free? Yes WC - Nurse 1 - General Ulcer Measurement Start: 04/12/22 09:07 Freq: Status: Active Protocol: Activity Type Activity Date Activity User E-sign Co-sign Detail Recorded Client Recorded Date Recorded By Document 04/12/22 09:08 KR [id number] 04/12/22 09:10 KR Document 04/19/22 09:07 KR [id number] 04/19/22 09:08 KR Document 04/26/22 09:34 KR [id number] 04/26/22 09:36 KR Document 05/03/22 09:51 KR [id number] 05/03/22 09:58 KR 04/12/22 04/19/22 04/26/22 09:08 09:07 09:34 Wound Center Nurse 1 #10 LL FOOT -Current Size (cm) - Length 4 3.4 4.8 -Current Size (cm) - Width 2.7 2.5 3 -Current Size (cm) - Depth 0.4 0.3 0.2 -Total Square Cm 10.8 8.50 14.4 -Exudate Amt Medium Medium Medium -Exudate Type Serosanguineous Serosanguineous Serosanguineous -Wound Margin Distinct, Distinct, Distinct, Outline Outline Outline Attached Attached Attached -Granulation Amt Medium (34-66%) Medium (34-66%) Medium (34-66%) -Granulation Quality [place] Red [place] -Necrosis Amt Small (1-33%) Medium (34-66%) Medium (34-66%) -Necrotic Tissue Type Adherent Slough Adherent Slough Adherent Slough -Texture (Dunia-wound Skin Appearance) Assessed, Assessed, Assessed, Scarring Scarring Scarring -Moisture (Dunia-wound Skin Appearance) No Abnormality, No Abnormality, No Abnormality, Assessed Assessed Assessed -Color (Dunia-wound Skin Appearance) No Abnormality, No Abnormality, No Abnormality, Assessed Assessed Assessed -Temperature ([place]-wound Skin No Abnormality No Abnormality No Abnormality Appearance) (Pt Warm) (Pt Warm) (Pt Warm) -Tenderness on Palpation ([place]-wound No No No Skin Appearance) -Ulcer Cleansing Rinsed/ Soap and Water Soap and Water Irrigated with Saline -Foul Odor after Cleansing No No No -Anesthetic Used 5% Lidocaine 5% Lidocaine 5% Lidocaine Gel Gel Gel 05/03/22 09:51 Wound Center Nurse 1 #10 LL FOOT -Current Size (cm) - Length 3.5 -Current Size (cm) - Width 4 -Current Size (cm) - Depth 0.4 -Total Square Cm 14.0 -Exudate Amt Medium -Exudate Type Serosanguineous -Wound Margin Distinct, Outline Attached -Granulation Amt Medium (34-66%) -Granulation Quality Red -Necrosis Amt Small (1-33%) -Necrotic Tissue Type Adherent Slough -Texture (Dunia-wound Skin Appearance) No Abnormality, Assessed -Moisture (Dunia-wound Skin Appearance) No Abnormality, Assessed -Color (Dunia-wound Skin Appearance) No Abnormality, Assessed -Temperature (Dunia-wound Skin No Abnormality Appearance) (Pt Warm) -Tenderness on Palpation (Dunia-wound No Skin Appearance) -Ulcer Cleansing Soap and Water -Foul Odor after Cleansing No -Anesthetic Used 5% Lidocaine Gel WC - Nurse 2 - General Ulcer CM Notes Start: 04/12/22 09:07 Freq: Status: Active Protocol: Activity Type Activity Date Activity User E-sign Co-sign Detail Recorded Client Recorded Date Recorded By Document 04/12/22 12:28 PL [id number] 04/12/22 12:29 PL Document 04/19/22 10:08 PL [id number] 04/19/22 10:09 PL Document 04/26/22 12:36 PL [id number] 04/26/22 12:37 PL Document 05/03/22 12:57 PL [id number] 05/03/22 12:58 PL 04/12/22 04/19/22 04/26/22 12:28 10:08 12:36 Wound Center Nurse 2 #10 FOOT -Time 09:56 09:27 10:03 -Correct Patient Yes Yes Yes -Correct Side, Site, Position Yes Yes Yes -Correct Procedure Yes Yes Yes -Procedure Performed Yes Yes Yes -Type of Procedure Debridement Debridement Debridement -Clinical Debridement Subcutaneous Subcutaneous Subcutaneous -Tissue Removed Subcutaneous Subcutaneous Subcutaneous -Post Debridement (cm) - Length 4.9 4.7 4.8 -Post Debridement (cm) - Width 3.4 3.2 3.0 -Post Debridement (cm) - Depth 0.5 0.3 0.2 -Total Square (Post) (cm) 16.66 15.04 14.40 -Area of Debridement (cm) - Length 4.9 4.7 4.8 -Area of Debridement (cm) - Width 3.4 3.2 3.0 -Total Square (Area) (cm) 16.66 15.04 14.40 -Tunneling No No No -Undermining/Tunneling No No No -Circular Undermining No No No -Wound/Ulcer Outcome Not Healed Not Healed Not Healed -Ulcer Cleansing Rinsed/ Rinsed/ Rinsed/ Irrigated with Irrigated with Irrigated with Saline Saline Saline -Foul Odor after Cleansing No No No -Bioengineered Tissue No No No -Bleeding Controlled with Pressure Pressure Pressure -Treatment Response Procedure Procedure Procedure Tolerated Well Tolerated Well Tolerated Well -Debridement - Subq, 1st 20sq cm Yes Yes Yes Pain Scale: 0-10 Numeric Is Patient Pain Free? Yes Yes Yes 05/03/22 12:57 Wound Center Nurse 2 #10 FOOT -Time 10:12 -Correct Patient Yes -Correct Side, Site, Position Yes -Correct Procedure Yes -Procedure Performed Yes -Type of Procedure Debridement -Clinical Debridement Subcutaneous -Tissue Removed Subcutaneous -Post Debridement (cm) - Length 3.5 -Post Debridement (cm) - Width 4.0 -Post Debridement (cm) - Depth 0.4 -Total Square (Post) (cm) 14.00 -Area of Debridement (cm) - Length 3.5 -Area of Debridement (cm) - Width 4.0 -Total Square (Area) (cm) 14.00 -Tunneling No -Undermining/Tunneling No -Circular Undermining No -Wound/Ulcer Outcome Not Healed -Ulcer Cleansing Rinsed/ Irrigated with Saline -Foul Odor after Cleansing No -Bioengineered Tissue No -Bleeding Controlled with Pressure -Treatment Response Procedure Tolerated Well -Debridement - Subq, 1st 20sq cm Yes Pain Scale: 0-10 Numeric Is Patient Pain Free? Yes - Nurse 3 - General Ulcer D/C NN Start: 04/12/22 09:07 Freq: Status: Active Protocol: Activity Type Activity Date Activity User E-sign Co-sign Detail Recorded Client Recorded Date Recorded By Document 04/12/22 10:07 KR [id number] 04/12/22 10:08 KR Document 04/19/22 09:53 JF [id number] 04/19/22 09:54 JF Edit Result 04/19/22 09:53 JF (1) [id number] 04/20/22 14:36 PL Document 04/26/22 10:18 KR [id number] 04/26/22 10:18 KR Document 05/03/22 11:53 MT [id number] 05/03/22 11:56 MT (1) #10 LL FOOT - NPWT Application Charge NPWT </= 50 sq cm => NPWT & Debridement ($) => (nc) 04/12/22 04/19/22 04/26/22 10:07 09:53 10:18 Wound Care Nurse 3 #10 LL FOOT -Ulcer Cleansing Rinsed/ Rinsed/ Irrigated with Irrigated with Saline Saline -Negative Pressure Wound Therapy Continue Continue Continue -Setting (mmHg) 150 150 150 -Negative Pressure is Continuous Continuous Continuous -Regranex (If Applicable) Continue Continue -Primary Dressing Covered/Secured with -NPWT Application Charge NPWT & NPWT & NPWT & Debridement (nc Debridement (nc Debridement (nc ) ) ) Left -Compression Wrap Kirill Wrap Pain Scale: 0-10 Numeric Is Patient Pain Free? Yes Yes Yes WC - Visit Discharge Discharge Condition Stable Stable Stable Ambulatory Status Ambulatory, Ambulatory, Ambulatory Walker Walker Transportation Private Auto Private Auto Private Auto Medication Reconcilliation completed & Yes provided to patient/care provider Clinical Summary of Care Provided Yes 05/03/22 11:53 Wound Care Nurse 3 #10 LL FOOT -Ulcer Cleansing Soap and Water -Negative Pressure Wound Therapy Continue -Setting (mmHg) 150 -Negative Pressure is Continuous -Regranex (If Applicable) Continue -Primary Dressing Covered/Secured with Dry Gauze, Secured with Tape -NPWT Application Charge NPWT & Debridement (nc ) Left -Compression Wrap Kirill Wrap Pain Scale: 0-10 Numeric Is Patient Pain Free? 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 s/p I&D gas gangrene left foot with partial fifth ray amputation and excision of chronic diabetic ulceration.? POV #8 (DOS: 03/24/2022) POD #39 Left lower extremity: No edema noted. Fifth digit amputation noted.? Wound VAC intact at the most distal aspect of the incision site with no leaks detected. No expressible purulent drainage or malodor on examination today.?Wound VAC canister demonstrates very little collection/drainage of blood. Hemorrhagic blister to the dorsal lateral fourth digit has resolved and is healed today. No signs of infection. Patient has a hemoglobin A1c of 10.5%.? I discussed continued diet modifications for proper glycemic control.?He was encouraged to remain following with his fountain roller assembler so that he may achieve a lower A1c. Infection: During surgical intervention 03/24/22 the tissues demonstrated normal integrity and were not easily dissectible through fascial planes with a finger as seen with typical necrotizing fasciitis cases.?He did however have soft tissue crepitus with foul odor consistent with a gas gangrene, confirmed by radiograph on 03/24/2022.? 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 WBC 16.3 with left shift prior to surgical intervention.?WBC currently within normal limits.?PICC line in place. Patient on IV antibiotics Vanco/Unasyn. And will finish in 2 days and will have PICC line removed. Sx Cultures: Culture of wound/ulceration &?Bone culture fifth toe/fifth metatarsal demonstrates staph epi, Enterococcus faecalis, Streptococcus mitis/oralis, Turicella otitidis, Enterococcus casseliflavius, Peptostreptococcus prevotil, Prevotella bivia. Cultures post surgical clearance demonstrate no growth. Blood cultures: Demonstrate no growth Wound: Wound underwent debridement as noted in clinical panel above today. Healthy granular tissue noted with no localized signs of infection. Wound is continuing to granulate in well. No signs of infection. Wound measures 4.8 cm x 3 cm x 0.2 cm. I discussed hyperbaric wound therapy today with the patient and he is amendable to performing dives. Orders placed for vascular studies, EKG, chest x-ray, and routine labs to undergo clearance for HBO therapy. Once cleared he will begin hyperbaric dives. Dressings: Wound VAC changed today.? VAC will be again changed 05/07/2022.?Dressings to be changed Saturday and .? He was instructed to keep his dressings clean, dry, and intact to the left foot.?Continue to elevate the left lower extremity at all times of rest. Patient is to remain nonweightbearing to the left lower extremity with assistance of a knee scooter Visiting nursing to assist in dressing changes to the left foot and VAC change on 05/07/2022.?He will again have VAC changed at his next wound care visit. He will return to the wound care center in 1 week for continued localized wound care. Note: [employer] speech recognition practice performance manager software was used to create portions of this document. Sound-alike and misspelled words, as well as other practice performance manager errors may be contained in the documentation.
[2022-05-09 13:36] VITALS: BP 145/74; PULSE 92; RESP 16; TEMP 36.2; BMI 34.2
== END 2022-05-09 23:59 | disposition home or self-care (01) ==
LOC: WC 13:00
PROVIDERS: PCP Internal Medicine; Referring Provider Podiatrist; Visit Provider Student in an Organized Health Care Education/Training Program
DX: E11.621 Type 2 diabetes mellitus with foot ulcer (principal); Z89.422 Acquired absence of other left toe(s); L97.522 Non-pressure chronic ulcer of other part of left foot with fat layer exposed; E11.42 Type 2 diabetes mellitus with diabetic polyneuropathy
CPT/HCPCS: 11042; 97605

== ENCOUNTER → 2022-05-31 | Outpatient (CLI) | payer MEDICARE, MEDICAID, SELFPAY ==
--- NOTE | 2022-05-31 09:02 | RAD_ITS ---
ACR Level 3 findings have been noted. An addendum which confirms receipt of the report will follow. STUDY: X-RAY - LEFT FOOT CLINICAL: Left foot wound, recent surgery. TECHNIQUE: 3 view(s) of the foot. COMPARISON: Radiographs 03/24/2022. FINDINGS: Normal talus, calcaneus, and tarsal bones. Normal visualized subtalar, talonavicular, calcaneocuboid, tarsal and tarsometatarsal articulations. There is amputation of the fifth metatarsal at the level of the mid diaphysis. There is interval development of osseous destruction of the head and distal diaphysis of the fourth metatarsal and base of the fourth proximal phalanx. Normal metatarsophalangeal joint of the great toe. Normal tibial and fibular sesamoid bones. Normal interphalangeal joint of the great toe. Normal phalanges of the great toe. Normal second and third metatarsophalangeal joints. Normal interphalangeal joints and phalanges of the second and third toes. There is a drain at the amputation site. There is soft tissue swelling. There is vascular calcification. RAD/Foot min 3 Views IMPRESSION: Interval development of osteomyelitis of the distal fourth metatarsal and fourth proximal phalangeal base. Electronically Signed: Chung Galeas MD at 12:47 EDT ,
== END | disposition home or self-care (01) ==
PROVIDERS: PCP Internal Medicine; Referring Provider Student in an Organized Health Care Education/Training Program; Visit Provider Student in an Organized Health Care Education/Training Program
DX: L97.522 Non-pressure chronic ulcer of other part of left foot with fat layer exposed (principal)
CPT/HCPCS: 73630

== ENCOUNTER 2022-06-07 09:00 | Outpatient (RCR) | payer MEDICARE, MEDICAID, SELFPAY ==
[2022-05-10 00:31] VITALS: BP 145/74; PULSE 92; RESP 16; TEMP 36.2; BMI 34.2
[2022-05-10 10:22] VITALS: BP 120/65; PULSE 84; RESP 16; TEMP 36.4; BMI 34.2
--- NOTE | 2022-05-10 13:23 | PCM.WC.PN ---
History of Present Illness Date of Service: 05/10/22 Chief Complaint: Right leg wound History of Wound: 46-year-old male with diabetic neuropathy returns to clinic today to follow-up for a left foot ulcer. He denies any changes at this time. He denies pain or other illness. He has been compliant. Patient denies any constitutional symptoms at his appointment today. Patient has a recent A1c greater than 8. Patient has a 1-year-old kidney transplant. He has been compliant with treatment at this time. Patient noted some diarrhea with the antibiotics he is taking. Denies any constitutional symptoms or new complaints at this time. 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 PICC line has been removed. He continues to deny any pain today.?He has no further complaints today. Objective Data Objective Data Vital Signs: Vital Signs Temp Pulse Resp BP O2 Del Method 97.6 F L 84 16 120/65 Room Air 05/10/22 10:22 05/10/22 10:22 05/10/22 10:22 05/10/22 10:22 05/10/22 10:22 Oxygen Delivery Method Room Air Weight: 102.058 kg Body Mass Index (BMI) 34.2 Physical Exam Narrative Patient is alert oriented to person, place and time.? Patient ambulates with assistance of a knee scooter on the left.? And diabetic shoe on the right. Vascular: There are atrophic changes of the skin such as thinning shiny taut appearance absent digital hair growth.? Pulses are grossly palpable 2 out of 4 dorsalis pedis and posterior tibial bilateral feet.? Mild +1 pitting edema to bilateral lower extremity. Neurologic: Light touch protective sensation completely absent to bilateral lower extremity. Dermatologic: Healed right hallux ulceration.? Digital wounds to left foot healed at this time.? Status post partial fifth ray amputation left foot with healthy granular wound at the distal aspect of the amputation site.? Lateral fourth digit demonstrates healed blister with No signs of infection. Musculoskeletal: No gross wound forming deformity.? Muscular strength full to bilateral lower extremity compartments.? No crepitus or pain noted to the wound or periwound areas. Const alert, oriented x3 and no apparent distress General Appearance: cooperative HEENT normocephalic Eyes General Eye: normal appearance of both eyes Neck General: normal visual inspection Lymph Lymphatic: no lymphadenopathy noted and no lymphedema noted Resp normal respiratory effort Cardio regular rate and regular rhythm Extremity normal capillary refill, no joint enlargement and no calf tenderness Peripheral Pulses: Yes posterior tibial pulses present and dorsalis pedis pulses present Skin no rashes or lesions noted, skin turgor normal and no jaundice Wound Narrative: Left foot: Partial fifth ray resection noted.? Wound site measures 4.7 cm x 3.6 cm x 1.1 cm.? There is localized rubor about the wound rim.? There is no expressible purulent drainage, no malodor, no other localized signs of infection.? Wound demonstrates healthy granular layer with adequate tissue bleeding.? There is a healed blister noted to the dorsal lateral aspect of the fourth digit with no local signs of infection. Neuro oriented x3 and moves all extremities Debridement Note Debridement Note Wound debrided: Left lateral foot/fifth ray stump Laterality: Left Wound Grade/Stage: Gustafson stage III Type of Debridement: Excisional debridement Anesthesia Used: 5% Lidocaine Gel Depth: Down to and including healthy tissue and in the subcutaneous layer Percentage of wound debrided: 100 Instrument Used: 3mm curette Tissue Removed: Fibrous, devitalized subcutaneous, biofilm, slough Severity: Fat Layer Exposed Amount of bleeding with debridement: Mild Bleeding Controlled with: Compression and gauze Patient tolerated procedure: Patient tolerated procedure well Post-Debridement Measurements and Additional Note: Post-Debridement Measurements/Treatment - Nurse 1 - General Ulcer Assessment Start: 05/10/22 10:18 Freq: Status: Active Protocol: WC.LOWEXT Activity Type Activity Date Activity User E-sign Co-sign Detail Recorded Client Recorded Date Recorded By Document 05/10/22 10:22 [facility] [id number] 05/10/22 10:32 [facility] 05/10/22 10:22 - Today's Visit Information Type of service Follow-up Visit (Physician/MERCHANDISE DELIVERER ) Arrival Mode Walker Arrival Mode (Other) KNEE WALKER Transfer Assistance None Patient Identification Verified (Name & Yes ) Patient Requires Transmission-Based No Precautions Finger Stick Blood Sugar(mg/dl) (if 139 indicated): Blood Sugar Stated by Patient Height and Weight Body Mass Index (BMI) 34.2 BMI Classification Obese Vital Signs Temperature (97.8 F-99.1 F) 97.6 F L Temperature Source Temporal Pulse Rate (60-100) 84 Pulse Location Monitor Respiratory Rate (12-18) 16 Respiratory rate source Observation Oxygen Delivery Method Room Air Blood Pressure (90/60-120/80) 120/65 Blood Pressure Mean (mm Hg) 83 Source Monitor Position Sitting Blood Pressure Location Left Arm History Since Last Visit- (Skip if this is Patient's initial visit) Have you changed medications since your No last visit? Any new allergies or adverse reactions No Had a fall/change in ADL's that may No increase risk of falls Signs or symptoms of abuse and/or No neglect since last visit Have you been in the hospital since your No last visit? Has dressing in place as prescribed Yes Has compression in place as prescribed N/A Has offloadiing in place as prescribed Yes Experienced any changes in pain level or No management Left Footwear No Footwear Right Footwear Regular Shoe Pain Scale: 0-10 Numeric Is Patient Pain Free? Yes WC - Nurse 1 - General Ulcer Measurement Start: 05/10/22 10:18 Freq: Status: Active Protocol: Activity Type Activity Date Activity User E-sign Co-sign Detail Recorded Client Recorded Date Recorded By Document 05/10/22 10:22 [facility] [id number] 05/10/22 10:32 [facility] 05/10/22 10:22 Wound Center Nurse 1 #10 LL FOOT -Combined with other wound No -Current Size (cm) - Length 4.7 -Current Size (cm) - Width 3.6 -Current Size (cm) - Depth 1.1 -Total Square Cm 16.92 -Date of Last Picture (Recall this 05/10/22 field) -Photo Taken Yes -Epithelialization None Present -Tunneling No -Undermining/Tunneling Yes -Undermining/Tunneling Starts (O'clock 4 ) -Undermining/Tunneling Ends (O'clock) 5 -Maximum Distance (cm) 0.5 -Undermining/Tunneling Starts #2 (O' 12 clock) -Undermining/Tunneling Ends #2 (O' 3 clock) -Maximum Distance #2 (cm) 0.3 -Circular Undermining No -Exudate Amt Small -Exudate Type Serosanguineous -Wound Margin Distinct, Outline Attached -Granulation Amt Medium (34-66%) -Granulation Quality Red -Slough/Fibrin Yes -Necrosis Amt Medium (34-66%) -Necrotic Tissue Type Adherent Slough -Texture (Dunia-wound Skin Appearance) Assessed, Scarring -Moisture (Dunia-wound Skin Appearance) Assessed, Maceration,Dry/ Scaly -Color ([place]ia-wound Skin Appearance) Assessed, Erythema,Palor -Temperature ([place]ia-wound Skin No Abnormality Appearance) (Pt Warm) -Tenderness on Palpation (Dunia-wound No Skin Appearance) -Ulcer Cleansing Soap and Water -Foul Odor after Cleansing No -Anesthetic Used 4% Lidocaine Solution WC - Nurse 2 - General Ulcer CM Notes Start: 05/10/22 10:18 Freq: Status: Active Protocol: Activity Type Activity Date Activity User E-sign Co-sign Detail Recorded Client Recorded Date Recorded By Document 05/10/22 12:33 PL [id number] 05/10/22 12:34 PL 05/10/22 12:33 Wound Center Nurse 2 -Time 10:44 -Correct Patient Yes -Correct Side, Site, Position Yes -Correct Procedure Yes -Procedure Performed Yes -Type of Procedure Debridement -Clinical Debridement Subcutaneous -Tissue Removed Subcutaneous -Post Debridement (cm) - Length 4.7 -Post Debridement (cm) - Width 3.6 -Post Debridement (cm) - Depth 1.1 -Total Square (Post) (cm) 16.92 -Area of Debridement (cm) - Length 4.7 -Area of Debridement (cm) - Width 3.6 -Total Square (Area) (cm) 16.92 -Tunneling No -Undermining/Tunneling No -Circular Undermining No -Wound/Ulcer Outcome Not Healed -Ulcer Cleansing Rinsed/ Irrigated with Saline -Foul Odor after Cleansing No -Bioengineered Tissue No -Bleeding Controlled with Pressure -Treatment Response Procedure Tolerated Well -Debridement - Subq, 1st 20sq cm Yes Pain Scale: 0-10 Numeric Is Patient Pain Free? Yes - Nurse 3 - General Ulcer D/C NN Start: 05/10/22 10:18 Freq: Status: Active Protocol: Activity Type Activity Date Activity User E-sign Co-sign Detail Recorded Client Recorded Date Recorded By Document 05/10/22 11:10 [facility] [id number] 05/10/22 11:11 BM 05/10/22 11:10 Wound Care Nurse 3 #10 LL FOOT -Ulcer Cleansing Rinsed/ Irrigated with Saline -Foul Odor after Cleansing No -Negative Pressure Wound Therapy Continue -Setting (mmHg) 150 -Negative Pressure is Continuous -NPWT Application Charge NPWT & Debridement (nc ) Left -Compression Wrap Kirill Wrap Treatment Response Procedure Tolerated Well Pain Scale: 0-10 Numeric Is Patient Pain Free? 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 s/p I&D gas gangrene left foot with partial fifth ray amputation and excision of chronic diabetic ulceration.? POV #9 (DOS: 03/24/2022) POD #46 Left lower extremity: No edema noted. Fifth digit amputation noted.? Wound VAC intact at the most distal aspect of the incision site with no leaks detected. No expressible purulent drainage or malodor on examination today.?Wound VAC canister demonstrates very little collection/drainage of blood. No signs of infection. Patient has a hemoglobin A1c of 10.5%.? I discussed continued diet modifications for proper glycemic control.?He was encouraged to remain following with his event planning intern so that he may achieve a lower A1c. Infection: During surgical intervention 03/24/22 the tissues demonstrated normal integrity and were not easily dissectible through fascial planes with a finger as seen with typical necrotizing fasciitis cases.?He did however have soft tissue crepitus with foul odor consistent with a gas gangrene, confirmed by radiograph on 03/24/2022.? 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 WBC 16.3 with left shift prior to surgical intervention.?WBC currently within normal limits.? He is finished IV antibiotic course and PICC line removed. Sx Cultures: Culture of wound/ulceration &?Bone culture fifth toe/fifth metatarsal demonstrates staph epi, Enterococcus faecalis, Streptococcus mitis/oralis, Turicella otitidis, Enterococcus casseliflavius, Peptostreptococcus prevotil, Prevotella bivia.? Cultures post surgical clearance demonstrate no growth. Blood cultures: Demonstrate no growth Wound: Wound underwent debridement as noted in clinical panel above today. Healthy granular tissue noted with no localized signs of infection. Wound is continuing to granulate in well. No signs of infection.? Wound measures 4.7 cm x 3.6 cm x 1.1 cm.? He is amendable to performing dives.? He will be obtaining vascular studies, EKG, chest x-ray, and routine labs to undergo clearance for HBO therapy.? Once cleared he will begin hyperbaric dives. Dressings: Wound VAC changed today.? VAC will be again changed 05/15/2022.?Dressings to be changed Saturday and .? He was instructed to keep his dressings clean, dry, and intact to the left foot.?Continue to elevate the left lower extremity at all times of rest. Patient is to remain nonweightbearing to the left lower extremity with assistance of a knee scooter Visiting nursing to assist in dressing changes to the left foot and VAC change on 05/15/2022.?He will again have VAC changed at his next wound care visit. He will return to the wound care center in 1 week for continued localized wound care. Note: [employer] speech recognition clinical science consultant software was used to create portions of this document. Sound-alike and misspelled words, as well as other clinical science consultant errors may be contained in the documentation.
[2022-05-17 08:55] VITALS: BP 144/84; PULSE 68; TEMP 36.4; BMI 34.2
--- NOTE | 2022-05-17 09:34 | PCM.WC.PN ---
History of Present Illness Date of Service: 05/17/22 Chief Complaint: Right leg wound History of Wound: 46-year-old male with diabetic neuropathy returns to clinic today to follow-up for a left foot ulcer. He denies any changes at this time. He denies pain or other illness. He has been compliant. Patient denies any constitutional symptoms at his appointment today. Patient has a recent A1c greater than 8. Patient has a 1-year-old kidney transplant. He has been compliant with treatment at this time. Patient noted some diarrhea with the antibiotics he is taking. Denies any constitutional symptoms or new complaints at this time. 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 Objective Data Objective Data Vital Signs: Vital Signs Temp Pulse Resp BP O2 Del Method 97.6 F L 68 16 144/84 H Room Air 05/17/22 08:55 05/17/22 08:55 05/10/22 10:22 05/17/22 08:55 05/10/22 10:22 Oxygen Delivery Method Room Air Weight: 102.058 kg Body Mass Index (BMI) 34.2 Physical Exam Narrative Patient is alert oriented to person, place and time.? Patient ambulates with assistance of a knee scooter on the left.? And diabetic shoe on the right. Vascular: There are atrophic changes of the skin such as thinning shiny taut appearance absent digital hair growth.? Pulses are grossly palpable 2 out of 4 dorsalis pedis and posterior tibial bilateral feet.? Mild +1 pitting edema to bilateral lower extremity. Neurologic: Light touch protective sensation completely absent to bilateral lower extremity. Dermatologic: Healed right hallux ulceration.? Digital wounds to left foot healed at this time.? Status post partial fifth ray amputation left foot with healthy granular wound at the distal aspect of the amputation site.? Lateral fourth digit demonstrates healed blister with No signs of infection. Musculoskeletal: No gross wound forming deformity.? Muscular strength full to bilateral lower extremity compartments.? No crepitus or pain noted to the wound or periwound areas. Const alert, oriented x3 and no apparent distress General Appearance: cooperative HEENT normocephalic Eyes General Eye: normal appearance of both eyes Neck General: normal visual inspection Lymph Lymphatic: no lymphadenopathy noted and no lymphedema noted Resp normal respiratory effort Cardio regular rate and regular rhythm Extremity normal capillary refill, no joint enlargement and no calf tenderness Skin no rashes or lesions noted, skin turgor normal and no jaundice Wound Narrative: Left foot: Partial fifth ray resection noted.? Wound site measures 4.7 cm x 3.6 cm x 1.1 cm.? There is localized rubor about the wound rim.? There is no expressible purulent drainage, no malodor, no other localized signs of infection.? Wound demonstrates healthy granular layer with adequate tissue bleeding.? There is a healed blister noted to the dorsal lateral aspect of the fourth digit with no local signs of infection. Neuro oriented x3 and moves all extremities Debridement Note Debridement Note Wound debrided: Lateral foot/fifth metatarsal stump Laterality: Left Wound Grade/Stage: Gustafson stage III Type of Debridement: Excisional debridement Anesthesia Used: 5% Lidocaine Gel Depth: Down to and including healthy tissue and in the subcutaneous layer Percentage of wound debrided: 100 Instrument Used: 3mm curette Tissue Removed: Fibrous, devitalized subcutaneous, biofilm, slough Severity: Fat Layer Exposed Amount of bleeding with debridement: Mild Bleeding Controlled with: Compression and gauze Patient tolerated procedure: Patient tolerated procedure well Post-Debridement Measurements and Additional Note: Post-Debridement Measurements/Treatment - Nurse 1 - General Ulcer Assessment Start: 05/10/22 10:18 Freq: Status: Active Protocol: HOLLY Activity Type Activity Date Activity User E-sign Co-sign Detail Recorded Client Recorded Date Recorded By Document 05/10/22 10:22 [facility] [id number] 05/10/22 10:32 [facility] Document 05/17/22 08:55 [place] [id number] 05/17/22 09:04 [place] 05/10/22 05/17/22 10:22 08:55 - Today's Visit Information Type of service Follow-up Visit Follow-up Visit (Physician/INCENDIARY POWDER MIXER (Physician/INCENDIARY POWDER MIXER ) ) Arrival Mode Walker Ambulatory Arrival Mode (Other) KNEE WALKER Transfer Assistance None Patient Identification Verified (Name & Yes Yes ) Patient Requires Transmission-Based No Precautions Finger Stick Blood Sugar(mg/dl) (if 139 indicated): Blood Sugar Stated by Patient Height and Weight Body Mass Index (BMI) 34.2 34.2 BMI Classification Obese Obese Vital Signs Temperature (97.8 F-99.1 F) 97.6 F L 97.6 F L Temperature Source Temporal Temporal Pulse Rate (60-100) 84 68 Pulse Location Monitor Monitor Respiratory Rate (12-18) 16 Respiratory rate source Observation Oxygen Delivery Method Room Air Blood Pressure (90/60-120/80) 120/65 144/84 H Blood Pressure Mean (mm Hg) 83 104 Source Monitor Monitor Position Sitting Sitting Blood Pressure Location Left Arm Left Arm History Since Last Visit- (Skip if this is Patient's initial visit) Have you changed medications since your No No last visit? Any new allergies or adverse reactions No No Had a fall/change in ADL's that may No No increase risk of falls Signs or symptoms of abuse and/or No No neglect since last visit Have you been in the hospital since your No No last visit? Has dressing in place as prescribed Yes Yes Has compression in place as prescribed N/A N/A Has offloadiing in place as prescribed Yes N/A Experienced any changes in pain level or No No management Left Footwear No Footwear Regular Shoe Right Footwear Regular Shoe Regular Shoe Pain Scale: 0-10 Numeric Is Patient Pain Free? Yes Yes WC - Nurse 1 - General Ulcer Measurement Start: 05/10/22 10:18 Freq: Status: Active Protocol: Activity Type Activity Date Activity User E-sign Co-sign Detail Recorded Client Recorded Date Recorded By Document 05/10/22 10:22 [facility] [id number] 05/10/22 10:32 [facility] Document 05/17/22 08:55 [place] [id number] 05/17/22 09:04 [place] 05/10/22 05/17/22 10:22 08:55 Wound Center Nurse 1 #10 LL FOOT -Combined with other wound No -Current Size (cm) - Length 4.7 2.5 -Current Size (cm) - Width 3.6 3.1 -Current Size (cm) - Depth 1.1 0.1 -Total Square Cm 16.92 7.75 -Date of Last Picture (Recall this 05/10/22 field) -Photo Taken Yes -Epithelialization None Present -Tunneling No -Undermining/Tunneling Yes -Undermining/Tunneling Starts (O'clock 4 ) -Undermining/Tunneling Ends (O'clock) 5 -Maximum Distance (cm) 0.5 -Undermining/Tunneling Starts #2 (O' 12 clock) -Undermining/Tunneling Ends #2 (O' 3 clock) -Maximum Distance #2 (cm) 0.3 -Circular Undermining No -Exudate Amt Small Medium -Exudate Type Serosanguineous Serosanguineous -Wound Margin Distinct, Distinct, Outline Outline Attached Attached -Granulation Amt Medium (34-66%) Medium (34-66%) -Granulation Quality [place] -Slough/Fibrin Yes -Necrosis Amt Medium (34-66%) Medium (34-66%) -Necrotic Tissue Type Adherent Slough Adherent Slough -Texture ([place]-wound Skin Appearance) Assessed, Assessed, Scarring Scarring -Moisture ([place]-wound Skin Appearance) Assessed, Assessed, Maceration,Dry/ Maceration Scaly -Color ([place]-wound Skin Appearance) Assessed, No Abnormality, Erythema,Palor Assessed -Temperature ([place]-wound Skin No Abnormality No Abnormality Appearance) (Pt Warm) (Pt Warm) -Tenderness on Palpation ([place]-wound No No Skin Appearance) -Ulcer Cleansing Soap and Water Rinsed/ Irrigated with Saline -Foul Odor after Cleansing No No -Anesthetic Used 4% Lidocaine 5% Lidocaine Solution Gel WC - Nurse 2 - General Ulcer CM Notes Start: 05/10/22 10:18 Freq: Status: Active Protocol: Activity Type Activity Date Activity User E-sign Co-sign Detail Recorded Client Recorded Date Recorded By Document 05/10/22 12:33 PL [id number] 05/10/22 12:34 PL Document 05/17/22 09:32 PL [id number] 05/17/22 09:32 PL 05/10/22 05/17/22 12:33 09:32 Wound Center Nurse 2 #10 LL FOOT -Time 10:44 09:13 -Correct Patient Yes Yes -Correct Side, Site, Position Yes Yes -Correct Procedure Yes Yes -Procedure Performed Yes Yes -Type of Procedure Debridement Debridement -Clinical Debridement Subcutaneous Subcutaneous -Tissue Removed Subcutaneous Subcutaneous -Post Debridement (cm) - Length 4.7 2.5 -Post Debridement (cm) - Width 3.6 3.1 -Post Debridement (cm) - Depth 1.1 0.1 -Total Square (Post) (cm) 16.92 7.75 -Area of Debridement (cm) - Length 4.7 2.5 -Area of Debridement (cm) - Width 3.6 3.1 -Total Square (Area) (cm) 16.92 7.75 -Tunneling No No -Undermining/Tunneling No No -Circular Undermining No No -Wound/Ulcer Outcome Not Healed Not Healed -Ulcer Cleansing Rinsed/ Rinsed/ Irrigated with Irrigated with Saline Saline -Foul Odor after Cleansing No No -Bioengineered Tissue No No -Bleeding Controlled with Pressure Pressure -Treatment Response Procedure Procedure Tolerated Well Tolerated Well -Debridement - Subq, 1st 20sq cm Yes Yes Pain Scale: 0-10 Numeric Is Patient Pain Free? Yes Yes - Nurse 3 - General Ulcer D/C NN Start: 05/10/22 10:18 Freq: Status: Active Protocol: Activity Type Activity Date Activity User E-sign Co-sign Detail Recorded Client Recorded Date Recorded By Document 05/10/22 11:10 [facility] [id number] 05/10/22 11:11 [facility] Document 05/17/22 09:25 [id number] 05/17/22 09:26 KR 05/10/22 05/17/22 11:10 09:25 Wound Care Nurse 3 #10 LL FOOT -Ulcer Cleansing Rinsed/ Rinsed/ Irrigated with Irrigated with Saline Saline -Foul Odor after Cleansing No -Negative Pressure Wound Therapy Continue Continue -Setting (mmHg) 150 150 -Negative Pressure is Continuous Continuous -Regranex (If Applicable) Continue -NPWT Application Charge NPWT & NPWT & Debridement (nc Debridement (nc ) ) Left -Compression Wrap Kirill Wrap Treatment Response Procedure Tolerated Well Pain Scale: 0-10 Numeric Is Patient Pain Free? 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 s/p I&D gas gangrene left foot with partial fifth ray amputation and excision of chronic diabetic ulceration.? POV #10 (DOS: 03/24/2022) POD #53 Left lower extremity: No edema noted. Fifth digit amputation noted.? Wound VAC intact at the most distal aspect of the incision site with no leaks detected. No expressible purulent drainage or malodor on examination today.?Wound VAC canister demonstrates very little collection/drainage of blood. No signs of infection. Patient has a hemoglobin A1c of 10.5%.? I discussed continued diet modifications for proper glycemic control.?He was encouraged to remain following with his drafter plumbing so that he may achieve a lower A1c. Infection: During surgical intervention 03/24/22 the tissues demonstrated normal integrity and were not easily dissectible through fascial planes with a finger as seen with typical necrotizing fasciitis cases.?He did however have soft tissue crepitus with foul odor consistent with a gas gangrene, confirmed by radiograph on 03/24/2022.? 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 WBC 16.3 with left shift prior to surgical intervention.?WBC currently within normal limits.? He is finished IV antibiotic course and PICC line removed. Currently no signs of infection. Sx Cultures: Culture of wound/ulceration &?Bone culture fifth toe/fifth metatarsal demonstrates staph epi, Enterococcus faecalis, Streptococcus mitis/oralis, Turicella otitidis, Enterococcus casseliflavius, Peptostreptococcus prevotil, Prevotella bivia.? Cultures post surgical clearance demonstrate no growth. Blood cultures: Demonstrate no growth Wound: Wound underwent debridement as noted in clinical panel above today. Healthy granular tissue noted with no localized signs of infection. Wound is continuing to granulate in well. No signs of infection.? Wound measures 4.5 cm x 3.4 cm x 0.1 cm.? He is amendable to performing dives.? He will be obtaining vascular studies, EKG, chest x-ray, and routine labs to undergo clearance for HBO therapy.? Once cleared he will begin hyperbaric dives. As his wound continues to progress I will plan for application of advanced wound care products. Dressings: Wound VAC changed today.? VAC will be again changed 05/21/2022.?Dressings to be changed Saturday and .? He was instructed to keep his dressings clean, dry, and intact to the left foot.?Continue to elevate the left lower extremity at all times of rest. Patient is to remain nonweightbearing to the left lower extremity with assistance of a knee scooter Visiting nursing to assist in dressing changes to the left foot and VAC change on 05/21/2022.?He will again have VAC changed at his next wound care visit. He will return to the wound care center in 1 week for continued localized wound care. Note: [employer] speech recognition international account representative software was used to create portions of this document. Sound-alike and misspelled words, as well as other international account representative errors may be contained in the documentation.
[2022-05-24 08:51] VITALS: BP 159/89; PULSE 90; TEMP 36.4; BMI 34.2
--- NOTE | 2022-05-24 09:41 | PN.PCM_ITS ---
History of Present Illness Date of Service: 05/24/22 Chief Complaint: Right leg wound History of Wound: 46-year-old male with diabetic neuropathy returns to clinic today to follow-up for a left foot ulcer. He denies any changes at this time. He denies pain or other illness. He has been compliant. Patient denies any constitutional symptoms at his appointment today. Patient has a recent A1c greater than 8. Patient has a 1-year-old kidney transplant. He has been compliant with treatment at this time. Patient noted some diarrhea with the antibiotics he is taking. Denies any constitutional symptoms or new complaints at this time. 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 Objective Data Objective Data Vital Signs: Vital Signs Temp Pulse Resp BP O2 Del Method 97.5 F L 90 16 159/89 H Room Air 05/24/22 08:51 05/24/22 08:51 05/10/22 10:22 05/24/22 08:51 05/10/22 10:22 Oxygen Delivery Method Room Air Weight: 102.058 kg Body Mass Index (BMI) 34.2 Physical Exam Narrative Patient is alert oriented to person, place and time.? Patient ambulates with assistance of a knee scooter on the left.? And diabetic shoe on the right. Vascular: There are atrophic changes of the skin such as thinning shiny taut appearance absent digital hair growth.? Pulses are grossly palpable 2 out of 4 dorsalis pedis and posterior tibial bilateral feet.? Mild +1 pitting edema to bilateral lower extremity. Neurologic: Light touch protective sensation completely absent to bilateral lower extremity. Dermatologic: Healed right hallux ulceration.? Digital wounds to left foot healed at this time.? Status post partial fifth ray amputation left foot with healthy granular wound at the distal aspect of the amputation site.? Lateral fourth digit demonstrates healed blister with No signs of infection. Musculoskeletal: No gross wound forming deformity.? Muscular strength full to bilateral lower extremity compartments.? No crepitus or pain noted to the wound or periwound areas. Const alert, oriented x3 and no apparent distress General Appearance: cooperative HEENT normocephalic Eyes General Eye: normal appearance of both eyes Neck General: normal visual inspection Lymph Lymphatic: no lymphadenopathy noted and no lymphedema noted Resp normal respiratory effort Cardio regular rate and regular rhythm Extremity normal capillary refill, no joint enlargement and no calf tenderness Skin no rashes or lesions noted, skin turgor normal and no jaundice Wound Narrative: Left foot: Partial fifth ray resection noted.? Wound site measures 4.7 cm x 3.6 cm x 2.0 cm.? There is localized rubor about the wound rim.? There is no expressible purulent drainage, no malodor, no other localized signs of infection.? Wound demonstrates healthy granular layer with adequate tissue bleeding.? There is a healed blister noted to the dorsal lateral aspect of the fourth digit with no local signs of infection. Neuro oriented x3 and moves all extremities Debridement Note Debridement Note Wound debrided: Fifth metatarsal stump and fourth metatarsal head Laterality: Left Wound Grade/Stage: Gustafson stage III Type of Debridement: Excisional debridement Anesthesia Used: 5% Lidocaine Gel Depth: in the subcutaneous layer and to bone Percentage of wound debrided: 100 Instrument Used: 3mm curette and - (Tissue nipper) Tissue Removed: Fibrous, devitalized subcutaneous, biofilm, slough, & necrotic 4th met head Severity: Necrosis of Bone Amount of bleeding with debridement: Mild Bleeding Controlled with: Compression and gauze Patient tolerated procedure: Patient tolerated procedure well Post-Debridement Measurements and Additional Note: Post-Debridement Measurements/Treatment - Nurse 1 - General Ulcer Assessment Start: 05/10/22 10:18 Freq: Status: Active Protocol: HOLLY Activity Type Activity Date Activity User E-sign Co-sign Detail Recorded Client Recorded Date Recorded By Document 05/10/22 10:22 [facility] [id number] 05/10/22 10:32 [facility] Document 05/17/22 08:55 AK [id number] 05/17/22 09:04 AK Document 05/24/22 08:51 KR [id number] 05/24/22 08:53 KR 05/10/22 05/17/22 05/24/22 10:22 08:55 08:51 - Today's Visit Information Type of service Follow-up Visit Follow-up Visit Follow-up Visit (Physician/SEED TESTER (Physician/SEED TESTER (Physician/SEED TESTER ) ) ) Arrival Mode Walker Ambulatory Arrival Mode (Other) KNEE WALKER Transfer Assistance None Patient Identification Verified (Name & Yes Yes Yes ) Patient Requires Transmission-Based No Precautions Finger Stick Blood Sugar(mg/dl) (if 139 indicated): Blood Sugar Stated by Patient Height and Weight Body Mass Index (BMI) 34.2 34.2 34.2 BMI Classification Obese Obese Obese Vital Signs Temperature (97.8 F-99.1 F) 97.6 F L 97.6 F L 97.5 F L Temperature Source Temporal Temporal Temporal Pulse Rate (60-100) 84 68 90 Pulse Location Monitor Monitor Monitor Respiratory Rate (12-18) 16 Respiratory rate source Observation Oxygen Delivery Method Room Air Blood Pressure (90/60-120/80) 120/65 144/84 H 159/89 H Blood Pressure Mean (mm Hg) 83 104 112 Source Monitor Monitor Monitor Position Sitting Sitting Semi-Fowlers Blood Pressure Location Left Arm Left Arm Left Arm History Since Last Visit- (Skip if this is Patient's initial visit) Have you changed medications since your No No No last visit? Any new allergies or adverse reactions No No No Had a fall/change in ADL's that may No No No increase risk of falls Signs or symptoms of abuse and/or No No No neglect since last visit Have you been in the hospital since your No No No last visit? Has dressing in place as prescribed Yes Yes Yes Has compression in place as prescribed N/A N/A N/A Has offloadiing in place as prescribed Yes N/A N/A Experienced any changes in pain level or No No No management Left Footwear No Footwear Regular Shoe Regular Shoe Right Footwear Regular Shoe Regular Shoe Regular Shoe Pain Scale: 0-10 Numeric Is Patient Pain Free? Yes Yes Yes WC - Nurse 1 - General Ulcer Measurement Start: 05/10/22 10:18 Freq: Status: Active Protocol: Activity Type Activity Date Activity User E-sign Co-sign Detail Recorded Client Recorded Date Recorded By Document 05/10/22 10:22 [facility] [id number] 05/10/22 10:32 [facility] Document 05/17/22 08:55 AK [id number] 05/17/22 09:04 AK Document 05/24/22 08:51 KR [id number] 05/24/22 08:53 KR 05/10/22 05/17/22 05/24/22 10:22 08:55 08:51 Wound Center Nurse 1 #10 LL FOOT -Combined with other wound No -Current Size (cm) - Length 4.7 2.5 3 -Current Size (cm) - Width 3.6 3.1 3.5 -Current Size (cm) - Depth 1.1 0.1 0.3 -Total Square Cm 16.92 7.75 10.5 -Date of Last Picture (Recall this 05/10/22 field) -Photo Taken Yes -Epithelialization None Present -Tunneling No -Undermining/Tunneling Yes -Undermining/Tunneling Starts (O'clock 4 ) -Undermining/Tunneling Ends (O'clock) 5 -Maximum Distance (cm) 0.5 -Undermining/Tunneling Starts #2 (O' 12 clock) -Undermining/Tunneling Ends #2 (O' 3 clock) -Maximum Distance #2 (cm) 0.3 -Circular Undermining No -Exudate Amt Small Medium Large -Exudate Type Serosanguineous Serosanguineous Serosanguineous -Wound Margin Distinct, Distinct, Distinct, Outline Outline Outline Attached Attached Attached -Granulation Amt Medium (34-66%) Medium (34-66%) Medium (34-66%) -Granulation Quality [place] [address] -Slough/Fibrin Yes -Necrosis Amt Medium (34-66%) Medium (34-66%) Medium (34-66%) -Necrotic Tissue Type Adherent Slough Adherent Slough Adherent Slough -Texture ([place]-wound Skin Appearance) Assessed, Assessed, Assessed, Scarring Scarring Scarring -Moisture ([place]-wound Skin Appearance) Assessed, Assessed, No Abnormality, Maceration,Dry/ Maceration Assessed Scaly -Color ([place]-wound Skin Appearance) Assessed, No Abnormality, No Abnormality, Erythema,Palor Assessed Assessed -Temperature ([place]-wound Skin No Abnormality No Abnormality No Abnormality Appearance) (Pt Warm) (Pt Warm) (Pt Warm) -Tenderness on Palpation ([place]-wound No No No Skin Appearance) -Ulcer Cleansing Soap and Water Rinsed/ Soap and Water Irrigated with Saline -Foul Odor after Cleansing No No No -Anesthetic Used 4% Lidocaine 5% Lidocaine 5% Lidocaine Solution Gel Gel WC - Nurse 2 - General Ulcer CM Notes Start: 05/10/22 10:18 Freq: Status: Active Protocol: Activity Type Activity Date Activity User E-sign Co-sign Detail Recorded Client Recorded Date Recorded By Document 05/10/22 12:33 PL [id number] 05/10/22 12:34 PL Document 05/17/22 09:32 PL [id number] 05/17/22 09:32 PL Document 05/24/22 09:32 PL [id number] 05/24/22 09:34 PL 05/10/22 05/17/22 05/24/22 12:33 09:32 09:32 Wound Center Nurse 2 #10 LL FOOT -Time 10:44 09:13 08:51 -Correct Patient Yes Yes Yes -Correct Side, Site, Position Yes Yes Yes -Correct Procedure Yes Yes Yes -Procedure Performed Yes Yes Yes -Type of Procedure Debridement Debridement Debridement -Clinical Debridement Subcutaneous Subcutaneous Bone -Tissue Removed Subcutaneous Subcutaneous -Post Debridement (cm) - Length 4.7 2.5 3.0 -Post Debridement (cm) - Width 3.6 3.1 3.5 -Post Debridement (cm) - Depth 1.1 0.1 0.6 -Total Square (Post) (cm) 16.92 7.75 10.50 -Area of Debridement (cm) - Length 4.7 2.5 3 -Area of Debridement (cm) - Width 3.6 3.1 3.5 -Total Square (Area) (cm) 16.92 7.75 10.5 -Tunneling No No No -Undermining/Tunneling No No No -Circular Undermining No No No -Wound/Ulcer Outcome Not Healed Not Healed Not Healed -Ulcer Cleansing Rinsed/ Rinsed/ Rinsed/ Irrigated with Irrigated with Irrigated with Saline Saline Saline -Foul Odor after Cleansing No No No -Bioengineered Tissue No No Yes -Type of Bioengineered Tissue Epifix Mesh -Expiration Date 03/09/27 -Product Lot Number [id number] -Percent Used 100 -Bleeding Controlled with Pressure Pressure Pressure -Treatment Response Procedure Procedure Procedure Tolerated Well Tolerated Well Tolerated Well -Debridement - Subq, 1st 20sq cm Yes Yes -Debridement - Bone, 1st 20sq cm No -Apply Skin Sub - 1st 25 sq cm - Feet 1 -Epifix Mesh (per sq cm) 11 Pain Scale: 0-10 Numeric Is Patient Pain Free? Yes Yes Yes WC - Nurse 3 - General Ulcer D/C NN Start: 05/10/22 10:18 Freq: Status: Active Protocol: Activity Type Activity Date Activity User E-sign Co-sign Detail Recorded Client Recorded Date Recorded By Document 05/10/22 11:10 [facility] [id number] 05/10/22 11:11 [facility] Document 05/17/22 09:25 [id number] 05/17/22 09:26 KR 05/10/22 05/17/22 11:10 09:25 Wound Care Nurse 3 #10 LL FOOT -Ulcer Cleansing Rinsed/ Rinsed/ Irrigated with Irrigated with Saline Saline -Foul Odor after Cleansing No -Negative Pressure Wound Therapy Continue Continue -Setting (mmHg) 150 150 -Negative Pressure is Continuous Continuous -Regranex (If Applicable) Continue -NPWT Application Charge NPWT & NPWT & Debridement (nc Debridement (nc ) ) Left -Compression Wrap Kirill Wrap Treatment Response Procedure Tolerated Well Pain Scale: 0-10 Numeric Is Patient Pain Free? 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 s/p I&D gas gangrene left foot with partial fifth ray amputation and excision of chronic diabetic ulceration.? POV #11 (DOS: 03/24/2022) POD #60 Left lower extremity: No edema noted. Fifth digit amputation noted.? Wound VAC intact at the most distal aspect of the incision site with no leaks detected. No expressible purulent drainage or malodor on examination today.? There is some serosanguineous drainage today. Wound VAC canister demonstrates very little collection/drainage of blood. No signs of infection. Patient has a hemoglobin A1c of 10.5%.? 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 Infection: During surgical intervention 03/24/22 the tissues demonstrated normal integrity and were not easily dissectible through fascial planes with a finger as seen with typical necrotizing fasciitis cases.?He did however have soft tissue crepitus with foul odor consistent with a gas gangrene, confirmed by radiograph on 03/24/2022.? 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 WBC 16.3 with left shift prior to surgical intervention.?WBC currently within normal limits.? He is finished IV antibiotic course and PICC line removed. Sx Cultures: Culture of wound/ulceration &?Bone culture fifth toe/fifth metatarsal demonstrates staph epi, Enterococcus faecalis, Streptococcus mitis/oralis, Turicella otitidis, Enterococcus casseliflavius, Peptostreptococcus prevotil, Prevotella bivia.? Cultures post surgical clearance demonstrate no growth. Blood cultures: Demonstrate no growth Wound: Wound underwent debridement as noted in clinical panel above today. Healthy granular tissue noted with no localized signs of infection. No purulent drainage noted, no malodor noted. Wound is continuing to granulate in well. Upon debridement it was noted that the lateral aspect of the fourth metatarsal head was discolored and soft. This was sharply debrided removing the necrotic fourth metatarsal head bedside today as stated in the clinical panel above. Remaining portion of the metatarsal appeared healthy and with hard consistency.? Wound measures 4.5 cm x 3.4 cm x 2.0 cm.? He is amendable to performing dives.? He will be obtaining vascular studies, EKG, chest x-ray, and routine labs to undergo clearance for HBO therapy.? Once cleared he will begin hyperbaric dives. As his wound continues to progress I will plan for application of advanced wound care products. He was approved for epi fix graft. Epi fix mesh graft #1 applied to the wound bed today. Site dressed with Adaptic touch and covered with a wound VAC. I discussed with him today following the removal of his fourth metatarsal head that the surrounding tissues appeared healthy with no signs of infection. I will continue to monitor him for any progressing signs of infection. He is aware that further surgical intervention may be required pending his progress. Dressings: Wound VAC changed today.? VAC will be again changed 05/28/2022.?Dressings to be changed Saturday and .? He was instructed to keep his dressings clean, dry, and intact to the left foot.?Continue to elevate the left lower extremity at all times of rest. Patient is to remain nonweightbearing to the left lower extremity with assistance of a knee scooter Visiting nursing to assist in dressing changes to the left foot and VAC change on 05/28/2022.?He will again have VAC changed at his next wound care visit. He will return to the wound care center in 1 week for continued localized wound care and close monitoring. Note: [employer] speech recognition crown assembly machine set up mechanic software was used to create portions of this document. Sound-alike and misspelled words, as well as other crown assembly machine set up mechanic errors may be contained in the documentation.
--- NOTE | 2022-05-31 09:44 | PCM.WC.PN ---
History of Present Illness Date of Service: 05/31/22 Chief Complaint: Right leg wound History of Wound: 46-year-old male with diabetic neuropathy returns to clinic today to follow-up for a left foot ulcer. He denies any changes at this time. He denies pain or other illness. He has been compliant. Patient denies any constitutional symptoms at his appointment today. Patient has a recent A1c greater than 8. Patient has a 1-year-old kidney transplant. He has been compliant with treatment at this time. Patient noted some diarrhea with the antibiotics he is taking. Denies any constitutional symptoms or new complaints at this time. 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 He states that he has noticed more odor from the wound this week.?He denies any constitutional symptoms.?He continues to deny any pain today.?He has no further complaints today. Objective Data Objective Data Vital Signs: Vital Signs Temp Pulse Resp BP O2 Del Method 97.5 F L 90 16 159/89 H Room Air 05/24/22 08:51 05/24/22 08:51 05/10/22 10:22 05/24/22 08:51 05/10/22 10:22 Oxygen Delivery Method Room Air Weight: 102.058 kg Body Mass Index (BMI) 34.2 Lab / Micro Data Result Diagrams: 05/31/22 10:39 Physical Exam Narrative Patient is alert oriented to person, place and time.? Patient ambulates with assistance of a knee scooter on the left.? And diabetic shoe on the right. Vascular: There are atrophic changes of the skin such as thinning shiny taut appearance absent digital hair growth.? Pulses are grossly palpable 2 out of 4 dorsalis pedis and posterior tibial bilateral feet.? Mild +1 pitting edema to bilateral lower extremity. Neurologic: Light touch protective sensation completely absent to bilateral lower extremity. Dermatologic: Healed right hallux ulceration.? Digital wounds to left foot healed at this time.? Status post partial fifth ray amputation left foot with healthy granular wound at the distal aspect of the amputation site.? Lateral fourth digit demonstrates healed blister with No signs of infection. Musculoskeletal: No gross wound forming deformity.? Muscular strength full to bilateral lower extremity compartments.? No crepitus or pain noted to the wound or periwound areas. Const alert, oriented x3 and no apparent distress General Appearance: cooperative HEENT normocephalic Eyes General Eye: normal appearance of both eyes Neck General: normal visual inspection Lymph Lymphatic: no lymphadenopathy noted and no lymphedema noted Resp normal respiratory effort Cardio regular rate and regular rhythm Extremity normal capillary refill, no joint enlargement and no calf tenderness Skin no rashes or lesions noted, skin turgor normal and no jaundice Wound Narrative: Left foot: Partial fifth ray resection noted.? Wound site measures 4.7 cm x 3.6 cm x 2.0 cm.? There is localized rubor about the wound rim.? There is no expressible purulent drainage, no malodor, no other localized signs of infection.? Wound demonstrates healthy granular layer with adequate tissue bleeding.? There is a healed blister noted to the dorsal lateral aspect of the fourth digit with no local signs of infection. Neuro oriented x3 and moves all extremities Debridement Note Debridement Note Wound debrided: Fifth metatarsal amputation stump; base of the fourth proximal phalanx bone Laterality: Left Wound Grade/Stage: Gustafson stage III Type of Debridement: Excisional debridement Anesthesia Used: 5% Lidocaine Gel Depth: Down to and including healthy tissue, in the subcutaneous layer and to bone Percentage of wound debrided: 100 Instrument Used: 3mm curette and - (Rongeur and tissue nippers) Tissue Removed: Fibrous, devitalized subcutaneous, biofilm, slough, necrotic tissue & bone Severity: Fat Layer Exposed Amount of bleeding with debridement: Mild Bleeding Controlled with: Compression and gauze Patient tolerated procedure: Patient tolerated procedure well Post-Debridement Measurements and Additional Note: Post-Debridement Measurements/Treatment WC - Nurse 1 - General Ulcer Assessment Start: 05/10/22 10:18 Freq: Status: Active Protocol: HOLLY Activity Type Activity Date Activity User E-sign Co-sign Detail Recorded Client Recorded Date Recorded By Document 05/10/22 10:22 [facility] [id number] 05/10/22 10:32 BM Document 05/17/22 08:55 AK [id number] 05/17/22 09:04 AK Document 05/24/22 08:51 KR [id number] 05/24/22 08:53 KR 05/10/22 05/17/22 05/24/22 10:22 08:55 08:51 - Today's Visit Information Type of service Follow-up Visit Follow-up Visit Follow-up Visit (Physician/CIGARETTE INSPECTOR (Physician/CIGARETTE INSPECTOR (Physician/CIGARETTE INSPECTOR ) ) ) Arrival Mode Walker Ambulatory Arrival Mode (Other) KNEE WALKER Transfer Assistance None Patient Identification Verified (Name & Yes Yes Yes ) Patient Requires Transmission-Based No Precautions Finger Stick Blood Sugar(mg/dl) (if 139 indicated): Blood Sugar Stated by Patient Height and Weight Body Mass Index (BMI) 34.2 34.2 34.2 BMI Classification Obese Obese Obese Vital Signs Temperature (97.8 F-99.1 F) 97.6 F L 97.6 F L 97.5 F L Temperature Source Temporal Temporal Temporal Pulse Rate (60-100) 84 68 90 Pulse Location Monitor Monitor Monitor Respiratory Rate (12-18) 16 Respiratory rate source Observation Oxygen Delivery Method Room Air Blood Pressure (90/60-120/80) 120/65 144/84 H 159/89 H Blood Pressure Mean (mm Hg) 83 104 112 Source Monitor Monitor Monitor Position Sitting Sitting Semi-Fowlers Blood Pressure Location Left Arm Left Arm Left Arm History Since Last Visit- (Skip if this is Patient's initial visit) Have you changed medications since your No No No last visit? Any new allergies or adverse reactions No No No Had a fall/change in ADL's that may No No No increase risk of falls Signs or symptoms of abuse and/or No No No neglect since last visit Have you been in the hospital since your No No No last visit? Has dressing in place as prescribed Yes Yes Yes Has compression in place as prescribed N/A N/A N/A Has offloadiing in place as prescribed Yes N/A N/A Experienced any changes in pain level or No No No management Left Footwear No Footwear Regular Shoe Regular Shoe Right Footwear Regular Shoe Regular Shoe Regular Shoe Pain Scale: 0-10 Numeric Is Patient Pain Free? Yes Yes Yes - Nurse 1 - General Ulcer Measurement Start: 05/10/22 10:18 Freq: Status: Active Protocol: Activity Type Activity Date Activity User E-sign Co-sign Detail Recorded Client Recorded Date Recorded By Document 05/10/22 10:22 [facility] [id number] 05/10/22 10:32 [facility] Document 05/17/22 08:55 AK [id number] 05/17/22 09:04 AK Document 05/24/22 08:51 KR [id number] 05/24/22 08:53 KR 05/10/22 05/17/22 05/24/22 10:22 08:55 08:51 Wound Center Nurse 1 #10 LL FOOT -Combined with other wound No -Current Size (cm) - Length 4.7 2.5 3 -Current Size (cm) - Width 3.6 3.1 3.5 -Current Size (cm) - Depth 1.1 0.1 0.3 -Total Square Cm 16.92 7.75 10.5 -Date of Last Picture (Recall this 05/10/22 field) -Photo Taken Yes -Epithelialization None Present -Tunneling No -Undermining/Tunneling Yes -Undermining/Tunneling Starts (O'clock 4 ) -Undermining/Tunneling Ends (O'clock) 5 -Maximum Distance (cm) 0.5 -Undermining/Tunneling Starts #2 (O' 12 clock) -Undermining/Tunneling Ends #2 (O' 3 clock) -Maximum Distance #2 (cm) 0.3 -Circular Undermining No -Exudate Amt Small Medium Large -Exudate Type Serosanguineous Serosanguineous Serosanguineous -Wound Margin Distinct, Distinct, Distinct, Outline Outline Outline Attached Attached Attached -Granulation Amt Medium (34-66%) Medium (34-66%) Medium (34-66%) -Granulation Quality Red [facility] -Slough/Fibrin Yes -Necrosis Amt Medium (34-66%) Medium (34-66%) Medium (34-66%) -Necrotic Tissue Type Adherent Slough Adherent Slough Adherent Slough -Texture (Dunia-wound Skin Appearance) Assessed, Assessed, Assessed, Scarring Scarring Scarring -Moisture (Dunia-wound Skin Appearance) Assessed, Assessed, No Abnormality, Maceration,Dry/ Maceration Assessed Scaly -Color (Dunia-wound Skin Appearance) Assessed, No Abnormality, No Abnormality, Erythema,Palor Assessed Assessed -Temperature (Dunia-wound Skin No Abnormality No Abnormality No Abnormality Appearance) (Pt Warm) (Pt Warm) (Pt Warm) -Tenderness on Palpation (Dunia-wound No No No Skin Appearance) -Ulcer Cleansing Soap and Water Rinsed/ Soap and Water Irrigated with Saline -Foul Odor after Cleansing No No No -Anesthetic Used 4% Lidocaine 5% Lidocaine 5% Lidocaine Solution Gel Gel WC - Nurse 2 - General Ulcer CM Notes Start: 05/10/22 10:18 Freq: Status: Active Protocol: Activity Type Activity Date Activity User E-sign Co-sign Detail Recorded Client Recorded Date Recorded By Document 05/10/22 12:33 PL [id number] 05/10/22 12:34 PL Document 05/17/22 09:32 PL [id number] 05/17/22 09:32 PL Document 05/24/22 09:32 PL [id number] 05/24/22 09:34 PL 05/10/22 05/17/22 05/24/22 12:33 09:32 09:32 Wound Center Nurse 2 #10 LL FOOT -Time 10:44 09:13 08:51 -Correct Patient Yes Yes Yes -Correct Side, Site, Position Yes Yes Yes -Correct Procedure Yes Yes Yes -Procedure Performed Yes Yes Yes -Type of Procedure Debridement Debridement Debridement -Clinical Debridement Subcutaneous Subcutaneous Bone -Tissue Removed Subcutaneous Subcutaneous -Post Debridement (cm) - Length 4.7 2.5 3.0 -Post Debridement (cm) - Width 3.6 3.1 3.5 -Post Debridement (cm) - Depth 1.1 0.1 0.6 -Total Square (Post) (cm) 16.92 7.75 10.50 -Area of Debridement (cm) - Length 4.7 2.5 3 -Area of Debridement (cm) - Width 3.6 3.1 3.5 -Total Square (Area) (cm) 16.92 7.75 10.5 -Tunneling No No No -Undermining/Tunneling No No No -Circular Undermining No No No -Wound/Ulcer Outcome Not Healed Not Healed Not Healed -Ulcer Cleansing Rinsed/ Rinsed/ Rinsed/ Irrigated with Irrigated with Irrigated with Saline Saline Saline -Foul Odor after Cleansing No No No -Bioengineered Tissue No No Yes -Type of Bioengineered Tissue Epifix Mesh -Expiration Date 03/09/27 -Product Lot Number [id number] -Percent Used 100 -Bleeding Controlled with Pressure Pressure Pressure -Treatment Response Procedure Procedure Procedure Tolerated Well Tolerated Well Tolerated Well -Debridement - Subq, 1st 20sq cm Yes Yes -Debridement - Bone, 1st 20sq cm No -Apply Skin Sub - 1st 25 sq cm - Feet 1 -Epifix Mesh (per sq cm) 11 Pain Scale: 0-10 Numeric Is Patient Pain Free? Yes Yes Yes WC - Nurse 3 - General Ulcer D/C NN Start: 05/10/22 10:18 Freq: Status: Active Protocol: Activity Type Activity Date Activity User E-sign Co-sign Detail Recorded Client Recorded Date Recorded By Document 05/10/22 11:10 [facility] [id number] 05/10/22 11:11 [facility] Document 05/17/22 09:25 [id number] 05/17/22 09:26 KR 05/10/22 05/17/22 11:10 09:25 Wound Care Nurse 3 #10 LL FOOT -Ulcer Cleansing Rinsed/ Rinsed/ Irrigated with Irrigated with Saline Saline -Foul Odor after Cleansing No -Negative Pressure Wound Therapy Continue Continue -Setting (mmHg) 150 150 -Negative Pressure is Continuous Continuous -Regranex (If Applicable) Continue -NPWT Application Charge NPWT & NPWT & Debridement (nc Debridement (nc ) ) Left -Compression Wrap Kirill Wrap Treatment Response Procedure Tolerated Well Pain Scale: 0-10 Numeric Is Patient Pain Free? 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 s/p I&D gas gangrene left foot with partial fifth ray amputation and excision of chronic diabetic ulceration.? POV #12 (DOS: 03/24/2022) POD #67 Left lower extremity: No edema noted. Fifth digit amputation noted.? Wound VAC intact at the most distal aspect of the incision site with no leaks detected. No expressible purulent drainage or malodor on examination today.? There is some serosanguineous drainage today. Wound VAC canister demonstrates very little collection/drainage of blood. Patient has a hemoglobin A1c of 10.5%.? 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 Infection: During surgical intervention 03/24/22 the tissues demonstrated normal integrity and were not easily dissectible through fascial planes with a finger as seen with typical necrotizing fasciitis cases.?He did however have soft tissue crepitus with foul odor consistent with a gas gangrene, confirmed by radiograph on 03/24/2022.? 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 WBC 16.3 with left shift prior to surgical intervention.?WBC currently within normal limits.? He is finished IV antibiotic course and PICC line removed. Sx Cultures: Culture of wound/ulceration &?Bone culture fifth toe/fifth metatarsal demonstrates staph epi, Enterococcus faecalis, Streptococcus mitis/oralis, Turicella otitidis, Enterococcus casseliflavius, Peptostreptococcus prevotil, Prevotella bivia.? Cultures post surgical clearance demonstrate no growth. Blood cultures: Demonstrate no growth Wound: Wound underwent debridement as noted in clinical panel above today. Healthy granular tissue noted with no localized signs of infection. No purulent drainage noted, no malodor noted. Wound is continuing to granulate in well. He underwent debridement of the necrotic 4th metatarsal head last week 05/24/22.? Wound measures 4.5 cm x 3.4 cm x 2.0 cm.? He is amendable to performing dives.? He will be obtaining vascular studies, EKG, chest x-ray, and routine labs to undergo clearance for HBO therapy. I again stressed today that he is delayed long enough in obtaining his clearance and needs to get this done.? Once cleared he will begin hyperbaric dives. He was approved for epi fix graft. Epi fix mesh graft #1 applied to the wound bed last visit, however we will hold further application due to malodor of his wound site. No expressible purulent drainage noted. We will also refrain from reapplication of his wound VAC today. Radiographs were ordered of the left foot today 05/31/22. Radiographs demonstrate: Amputation of the fifth metatarsal at the level of the mid diaphysis. There is interval development of osseous destruction of the base of the fourth proximal phalanx and distal fourth metatarsal suspicious of osteomyelitis. Further debridement was performed removing nonviable tissue in the base of his proximal phalanx of the fourth digit. I am recommending Dakin's wet-to-dry dressing for 1 week. He is to change this dressing daily. Rx doxycycline 100 mg twice daily x14 days and Rx levofloxacin 750 mg p.o. every 24 hours x14 days. He is instructed to begin oral antibiotic regiment. I will continue to monitor him for any progressing signs of infection. He is aware that further surgical intervention may be required pending his progress. Dressings: Wound VAC removed today.? VAC change will be held for 05/31/2022.?Wet to dry Dakins Dressings to be changed daily.? He was instructed to keep his dressings clean, dry, and intact to the left foot.?Continue to elevate the left lower extremity at all times of rest. Patient is to remain nonweightbearing to the left lower extremity with assistance of a knee scooter Visiting nursing to assist in dressing changes to the left foot.?We will look to re-appy wound VAC again at his next wound care visit. He will return to the wound care center in 1 week for continued localized wound care and close monitoring. Note: [employer] speech recognition consulting it architect software was used to create portions of this document. Sound-alike and misspelled words, as well as other consulting it architect errors may be contained in the documentation.
[2022-05-31 09:48] VITALS: BP 150/83; PULSE 90; TEMP 36.4; BMI 34.2
--- NOTE | 2022-05-31 11:20 | RAD_ITS ---
EXAM: XR CHEST, 2 VIEWS CLINICAL INDICATION: CLEARANCE TECHNIQUE: Frontal and lateral views of the chest. This report was created using [employer] report generation technology. COMPARISON: None. FINDINGS: LUNGS AND PLEURAL SPACES: Unremarkable. No consolidation or edema. No pneumothorax. No effusion. HEART: Unremarkable. Cardiac silhouette not enlarged. MEDIASTINUM: Central airways and mediastinal contour are unremarkable. BONES/JOINTS: Unremarkable. SOFT TISSUES: Unremarkable. RAD/Chest PA and Lateral IMPRESSION: No radiographic evidence of acute cardiopulmonary disease. Electronically Signed: Dionte Jiménez MD at 16:09 EDT ,
[2022-05-31 11:21] LABS: Erythrocyte Sedimentation Rate 30 mm/hr (0-20)
[2022-05-31 11:37] LABS: Hemoglobin A1c 10.5 % (3.8-5.6)
[2022-05-31 11:51] LABS: ALB/GLOB Ratio 0.7 RATIO (0.9-2.4); AST(SGOT) 30 U/L (15-37); Alanine Aminotransfer ALT/SGPT 68 U/L (16-61); Albumin, Serum 3.2 g/dL (3.2-5.0); Alkaline Phosphatase 258 U/L (45-117); Anion Gap 6 (5-15); BUN 35 mg/dL (7-18); BUN/Creat Ratio 21.9 RATIO (10-20); Calcium,Total 10.1 mg/dL (8.5-10.1); Chloride 103 mmol/L (98-107); EST Glomerular Filtration Rate 48 mL/min (>60); Est Glom Filt Rate - Afr Amer 58 mL/min (>60); Estimated Creatinine Clearance 51.66 ml/min; Globulin 4.6 g/dL (2.2-4.2); Glucose 175 mg/dL (74-106); Potassium 4.6 mmol/L (3.5-5.1); Protein, Total 7.8 g/dL (6.4-8.2); Sodium Level 139 mmol/L (136-145)
[2022-06-07 09:01] VITALS: BP 117/73; PULSE 63; TEMP 36.6; BMI 34.2
--- NOTE | 2022-06-07 09:10 | PN.PCM_ITS ---
History of Present Illness Date of Service: 06/07/22 Chief Complaint: Right leg wound History of Wound: 46-year-old male with diabetic neuropathy returns to clinic today to follow-up for a left foot ulcer. He denies any changes at this time. He denies pain or other illness. He has been compliant. Patient denies any constitutional symptoms at his appointment today. Patient has a recent A1c greater than 8. Patient has a 1-year-old kidney transplant. He has been compliant with treatment at this time. Patient noted some diarrhea with the antibiotics he is taking. Denies any constitutional symptoms or new complaints at this time. 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 He states he is taking his oral antibiotics as instructed, and has been packing the wound with Dakin's wet-to-dry dressing twice daily.?He denies any constitutional symptoms.?He continues to deny any pain today.?He has no further complaints today. Objective Data Objective Data Vital Signs: Vital Signs Temp Pulse Resp BP O2 Del Method 97.8 F 63 16 117/73 Room Air 06/07/22 09:01 06/07/22 09:01 05/10/22 10:22 06/07/22 09:01 05/10/22 10:22 Oxygen Delivery Method Room Air Weight: 102.058 kg Body Mass Index (BMI) 34.2 Lab / Micro Data Result Diagrams: 05/31/22 10:39 Physical Exam Narrative Patient is alert oriented to person, place and time.? Patient ambulates with assistance of a knee scooter on the left.? And diabetic shoe on the right. Vascular: There are atrophic changes of the skin such as thinning shiny taut appearance absent digital hair growth.? Pulses are grossly palpable 2 out of 4 dorsalis pedis and posterior tibial bilateral feet.? Mild +1 pitting edema to bilateral lower extremity. Neurologic: Light touch protective sensation completely absent to bilateral lower extremity. Dermatologic: Healed right hallux ulceration.? Digital wounds to left foot healed at this time.? Status post partial fifth ray amputation left foot with healthy granular wound at the distal aspect of the amputation site.? Lateral fourth digit demonstrates healed blister with No signs of infection. Musculoskeletal: No gross wound forming deformity.? Muscular strength full to bilateral lower extremity compartments.? No crepitus or pain noted to the wound or periwound areas. Const alert, oriented x3 and no apparent distress General Appearance: cooperative HEENT normocephalic Eyes General Eye: normal appearance of both eyes Neck General: normal visual inspection Lymph Lymphatic: no lymphadenopathy noted and no lymphedema noted Resp normal respiratory effort Cardio regular rate and regular rhythm Extremity normal capillary refill, no joint enlargement and no calf tenderness Skin no rashes or lesions noted, skin turgor normal and no jaundice Wound Narrative: Left foot: Partial fifth ray resection noted.? Wound site measures 4.7 cm x 3.6 cm x 2.0 cm.? There is localized rubor about the wound rim.? There is no expressible purulent drainage, no malodor, no other localized signs of infection.? Wound demonstrates healthy granular layer with adequate tissue bleeding.? There is a healed blister noted to the dorsal lateral aspect of the fourth digit with no local signs of infection. Neuro oriented x3 and moves all extremities Debridement Note Debridement Note Wound debrided: Left fifth metatarsal stump wound Laterality: Left Wound Grade/Stage: Gustafson stage III Type of Debridement: Excisional debridement Anesthesia Used: 5% Lidocaine Gel Depth: Down to and including healthy tissue and in the subcutaneous layer Percentage of wound debrided: 100 Instrument Used: 3mm curette and - (Tissue nipper) Tissue Removed: Fibrous, devitalized subcutaneous, biofilm, slough Severity: Fat Layer Exposed Amount of bleeding with debridement: Mild Bleeding Controlled with: Compression and gauze Patient tolerated procedure: Patient tolerated procedure well Post-Debridement Measurements and Additional Note: Post-Debridement Measurements/Treatment WC - Nurse 1 - General Ulcer Assessment Start: 05/10/22 10:18 Freq: Status: Active Protocol: OSWALD.LOWYOEL Activity Type Activity Date Activity User E-sign Co-sign Detail Recorded Client Recorded Date Recorded By Document 05/10/22 10:22 [facility] [id number] 05/10/22 10:32 BM Document 05/17/22 08:55 AK [id number] 05/17/22 09:04 AK Document 05/24/22 08:51 KR [id number] 05/24/22 08:53 KR Document 05/31/22 09:48 KR [id number] 09/22/22 09:50 KR Document 06/07/22 09:01 KR [id number] 06/07/22 09:03 KR 05/10/22 05/17/22 05/24/22 10:22 08:55 08:51 - Today's Visit Information Type of service Follow-up Visit Follow-up Visit Follow-up Visit (Physician/PHOTOGRAPHY EDITOR (Physician/PHOTOGRAPHY EDITOR (Physician/PHOTOGRAPHY EDITOR ) ) ) Arrival Mode Walker Ambulatory Arrival Mode (Other) KNEE WALKER Transfer Assistance None Patient Identification Verified (Name & Yes Yes Yes ) Patient Requires Transmission-Based No Precautions Finger Stick Blood Sugar(mg/dl) (if 139 indicated): Blood Sugar Stated by Patient Height and Weight Body Mass Index (BMI) 34.2 34.2 34.2 BMI Classification Obese Obese Obese Vital Signs Temperature (97.8 F-99.1 F) 97.6 F L 97.6 F L 97.5 F L Temperature Source Temporal Temporal Temporal Pulse Rate (60-100) 84 68 90 Pulse Location Monitor Monitor Monitor Respiratory Rate (12-18) 16 Respiratory rate source Observation Oxygen Delivery Method Room Air Blood Pressure (90/60-120/80) 120/65 144/84 H 159/89 H Blood Pressure Mean (mm Hg) 83 104 112 Source Monitor Monitor Monitor Position Sitting Sitting Semi-Fowlers Blood Pressure Location Left Arm Left Arm Left Arm History Since Last Visit- (Skip if this is Patient's initial visit) Have you changed medications since your No No No last visit? Any new allergies or adverse reactions No No No Had a fall/change in ADL's that may No No No increase risk of falls Signs or symptoms of abuse and/or No No No neglect since last visit Have you been in the hospital since your No No No last visit? Has dressing in place as prescribed Yes Yes Yes Has compression in place as prescribed N/A N/A N/A Has offloadiing in place as prescribed Yes N/A N/A Experienced any changes in pain level or No No No management Left Footwear No Footwear Regular Shoe Regular Shoe Right Footwear Regular Shoe Regular Shoe Regular Shoe Pain Scale: 0-10 Numeric Is Patient Pain Free? Yes Yes Yes 05/31/22 06/07/22 09:48 09:01 - Today's Visit Information Type of service Follow-up Visit Follow-up Visit (Physician/PHOTOGRAPHY EDITOR (Physician/PHOTOGRAPHY EDITOR ) ) Arrival Mode Ambulatory, Ambulatory Other Arrival Mode (Other) Transfer Assistance Patient Identification Verified (Name & Yes Yes ) Patient Requires Transmission-Based Precautions Finger Stick Blood Sugar(mg/dl) (if indicated): Blood Sugar Height and Weight Body Mass Index (BMI) 34.2 34.2 BMI Classification Obese Obese Vital Signs Temperature (97.8 F-99.1 F) 97.6 F L 97.8 F Temperature Source Temporal Temporal Pulse Rate (60-100) 90 63 Pulse Location Monitor Monitor Respiratory Rate (12-18) Respiratory rate source Oxygen Delivery Method Blood Pressure (90/60-120/80) 150/83 H 117/73 Blood Pressure Mean (mm Hg) 105 87 Source Monitor Monitor Position Sitting Semi-Fowlers Blood Pressure Location Right Arm Left Arm History Since Last Visit- (Skip if this is Patient's initial visit) Have you changed medications since your No No last visit? Any new allergies or adverse reactions No No Had a fall/change in ADL's that may No No increase risk of falls Signs or symptoms of abuse and/or No No neglect since last visit Have you been in the hospital since your No No last visit? Has dressing in place as prescribed Yes Yes Has compression in place as prescribed N/A N/A Has offloadiing in place as prescribed N/A N/A Experienced any changes in pain level or No No management Left Footwear No Footwear Regular Shoe Right Footwear Regular Shoe Other Footwear (Comment) Pain Scale: 0-10 Numeric Is Patient Pain Free? Yes Yes WC - Nurse 1 - General Ulcer Measurement Start: 05/10/22 10:18 Freq: Status: Active Protocol: Activity Type Activity Date Activity User E-sign Co-sign Detail Recorded Client Recorded Date Recorded By Document 05/10/22 10:22 [facility] [id number] 05/10/22 10:32 BMF Document 05/17/22 08:55 AK [id number] 05/17/22 09:04 AK Document 05/24/22 08:51 KR [id number] 05/24/22 08:53 KR Document 05/31/22 09:48 KR [id number] 05/31/22 09:50 KR Document 06/07/22 09:01 KR [id number] 06/07/22 09:03 KR 05/10/22 05/17/22 05/24/22 10:22 08:55 08:51 Wound Center Nurse 1 #10 LL FOOT -Combined with other wound No -Current Size (cm) - Length 4.7 2.5 3 -Current Size (cm) - Width 3.6 3.1 3.5 -Current Size (cm) - Depth 1.1 0.1 0.3 -Total Square Cm 16.92 7.75 10.5 -Date of Last Picture (Recall this 05/10/22 field) -Photo Taken Yes -Epithelialization None Present -Tunneling No -Undermining/Tunneling Yes -Undermining/Tunneling Starts (O'clock 4 ) -Undermining/Tunneling Ends (O'clock) 5 -Maximum Distance (cm) 0.5 -Undermining/Tunneling Starts #2 (O' 12 clock) -Undermining/Tunneling Ends #2 (O' 3 clock) -Maximum Distance #2 (cm) 0.3 -Circular Undermining No -Exudate Amt Small Medium Large -Exudate Type Serosanguineous Serosanguineous Serosanguineous -Wound Margin Distinct, Distinct, Distinct, Outline Outline Outline Attached Attached Attached -Granulation Amt Medium (34-66%) Medium (34-66%) Medium (34-66%) -Granulation Quality Red Gasquet Gasquet -Slough/Fibrin Yes -Necrosis Amt Medium (34-66%) Medium (34-66%) Medium (34-66%) -Necrotic Tissue Type Adherent Slough Adherent Slough Adherent Slough -Structure Exposed -Texture (Dunia-wound Skin Appearance) Assessed, Assessed, Assessed, Scarring Scarring Scarring -Moisture (Dunia-wound Skin Appearance) Assessed, Assessed, No Abnormality, Maceration,Dry/ Maceration Assessed Scaly -Color (Dunia-wound Skin Appearance) Assessed, No Abnormality, No Abnormality, Erythema,Palor Assessed Assessed -Temperature (Dunia-wound Skin No Abnormality No Abnormality No Abnormality Appearance) (Pt Warm) (Pt Warm) (Pt Warm) -Tenderness on Palpation (Dunia-wound No No No Skin Appearance) -Ulcer Cleansing Soap and Water Rinsed/ Soap and Water Irrigated with Saline -Foul Odor after Cleansing No No No -Anesthetic Used 4% Lidocaine 5% Lidocaine 5% Lidocaine Solution Gel Gel 05/31/22 06/07/22 09:48 09:01 Wound Center Nurse 1 #10 LL FOOT -Combined with other wound -Current Size (cm) - Length 3 4 -Current Size (cm) - Width 3.5 2.5 -Current Size (cm) - Depth 0.3 0.3 -Total Square Cm 10.5 10.0 -Date of Last Picture (Recall this field) -Photo Taken -Epithelialization -Tunneling -Undermining/Tunneling -Undermining/Tunneling Starts (O'clock ) -Undermining/Tunneling Ends (O'clock) -Maximum Distance (cm) -Undermining/Tunneling Starts #2 (O' clock) -Undermining/Tunneling Ends #2 (O' clock) -Maximum Distance #2 (cm) -Circular Undermining -Exudate Amt Large Medium -Exudate Type Serosanguineous Serosanguineous -Wound Margin Distinct, Distinct, Outline Outline Attached Attached -Granulation Amt Large (67-100%) Large (67-100%) -Granulation Quality Gasquet Gasquet -Slough/Fibrin -Necrosis Amt Medium (34-66%) Medium (34-66%) -Necrotic Tissue Type Adherent Slough Adherent Slough -Structure Exposed Fat Layer Exposed -Texture (Dunia-wound Skin Appearance) Assessed, Assessed,Callus Scarring ,Scarring -Moisture (Dunia-wound Skin Appearance) Assessed, No Abnormality, Maceration Assessed -Color (Dunia-wound Skin Appearance) No Abnormality, No Abnormality, Assessed Assessed -Temperature (Dunia-wound Skin No Abnormality No Abnormality Appearance) (Pt Warm) (Pt Warm) -Tenderness on Palpation (Dunia-wound No No Skin Appearance) -Ulcer Cleansing Soap and Water Soap and Water -Foul Odor after Cleansing Yes No -Anesthetic Used 5% Lidocaine 5% Lidocaine Gel Gel WC - Nurse 2 - General Ulcer CM Notes Start: 05/10/22 10:18 Freq: Status: Active Protocol: Activity Type Activity Date Activity User E-sign Co-sign Detail Recorded Client Recorded Date Recorded By Document 05/10/22 12:33 PL [id number] 05/10/22 12:34 PL Document 05/17/22 09:32 PL [id number] 05/17/22 09:32 PL Document 05/24/22 09:32 PL [id number] 05/24/22 09:34 PL Document 05/31/22 11:30 PL [id number] 05/31/22 11:31 PL Edit Result 05/31/22 11:30 PL (1) [id number] 05/31/22 13:47 PL (1) #10 LL FOOT - Clinical Debridement Subcutaneous => Bone - Debridement - Subq, 1st 20sq cm Yes => - Debridement - Bone, 1st 20sq cm => Yes 05/10/22 05/17/22 05/24/22 12:33 09:32 09:32 Wound Center Nurse 2 #10 LL FOOT -Time 10:44 09:13 08:51 -Correct Patient Yes Yes Yes -Correct Side, Site, Position Yes Yes Yes -Correct Procedure Yes Yes Yes -Procedure Performed Yes Yes Yes -Type of Procedure Debridement Debridement Debridement -Clinical Debridement Subcutaneous Subcutaneous Bone -Tissue Removed Subcutaneous Subcutaneous -Post Debridement (cm) - Length 4.7 2.5 3.0 -Post Debridement (cm) - Width 3.6 3.1 3.5 -Post Debridement (cm) - Depth 1.1 0.1 0.6 -Total Square (Post) (cm) 16.92 7.75 10.50 -Area of Debridement (cm) - Length 4.7 2.5 3 -Area of Debridement (cm) - Width 3.6 3.1 3.5 -Total Square (Area) (cm) 16.92 7.75 10.5 -Tunneling No No No -Undermining/Tunneling No No No -Circular Undermining No No No -Wound/Ulcer Outcome Not Healed Not Healed Not Healed -Ulcer Cleansing Rinsed/ Rinsed/ Rinsed/ Irrigated with Irrigated with Irrigated with Saline Saline Saline -Foul Odor after Cleansing No No No -Bioengineered Tissue No No Yes -Type of Bioengineered Tissue Epifix Mesh -Expiration Date 03/09/27 -Product Lot Number [id number] -Percent Used 100 -Bleeding Controlled with Pressure Pressure Pressure -Treatment Response Procedure Procedure Procedure Tolerated Well Tolerated Well Tolerated Well -Debridement - Subq, 1st 20sq cm Yes Yes -Debridement - Bone, 1st 20sq cm No -Apply Skin Sub - 1st 25 sq cm - Feet 1 -Epifix Mesh (per sq cm) 11 Pain Scale: 0-10 Numeric Is Patient Pain Free? Yes Yes Yes 05/31/22 11:30 Wound Center Nurse 2 #10 LL FOOT -Time 09:46 -Correct Patient Yes -Correct Side, Site, Position Yes -Correct Procedure Yes -Procedure Performed Yes -Type of Procedure Debridement -Clinical Debridement Bone -Tissue Removed Subcutaneous -Post Debridement (cm) - Length 3.0 -Post Debridement (cm) - Width 3.5 -Post Debridement (cm) - Depth 0.3 -Total Square (Post) (cm) 10.50 -Area of Debridement (cm) - Length 3.0 -Area of Debridement (cm) - Width 3.5 -Total Square (Area) (cm) 10.50 -Tunneling No -Undermining/Tunneling No -Circular Undermining No -Wound/Ulcer Outcome Not Healed -Ulcer Cleansing Rinsed/ Irrigated with Saline -Foul Odor after Cleansing No -Bioengineered Tissue No -Type of Bioengineered Tissue -Expiration Date -Product Lot Number -Percent Used -Bleeding Controlled with Pressure -Treatment Response Procedure Tolerated Well -Debridement - Subq, 1st 20sq cm -Debridement - Bone, 1st 20sq cm Yes -Apply Skin Sub - 1st 25 sq cm - Feet -Epifix Mesh (per sq cm) Pain Scale: 0-10 Numeric Is Patient Pain Free? Yes WC - Nurse 3 - General Ulcer D/C NN Start: 05/10/22 10:18 Freq: Status: Active Protocol: Activity Type Activity Date Activity User E-sign Co-sign Detail Recorded Client Recorded Date Recorded By Document 05/10/22 11:10 [facility] [id number] 05/10/22 11:11 [facility] Document 05/17/22 09:25 KR [id number] 05/17/22 09:26 KR Document 05/31/22 12:00 AK [id number] 05/31/22 12:01 AK 05/10/22 05/17/22 05/31/22 11:10 09:25 12:00 Wound Care Nurse 3 #10 FOOT -Ulcer Cleansing Rinsed/ Rinsed/ Rinsed/ Irrigated with Irrigated with Irrigated with Saline Saline Saline -Foul Odor after Cleansing No No -Negative Pressure Wound Therapy Continue Continue N/A -Setting (mmHg) 150 150 -Negative Pressure is Continuous Continuous -Regranex (If Applicable) Continue -Primary Dressing Applied Hysept ($) -Other Dressing daikins -Primary Dressing Covered/Secured with Dry Gauze, Secured with Tape -NPWT Application Charge NPWT & NPWT & Debridement (nc Debridement (nc ) ) Left -Compression Wrap Kirill Wrap Treatment Response Procedure Tolerated Well Pain Scale: 0-10 Numeric Is Patient Pain Free? 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 s/p I&D gas gangrene left foot with partial fifth ray amputation and excision of chronic diabetic ulceration.? POV #13 (DOS: 03/24/2022) POD #74 Left lower extremity: No edema noted. Fifth digit amputation noted.? Wound VAC intact at the most distal aspect of the incision site with no leaks detected. No expressible purulent drainage or malodor on examination today.? There is some serosanguineous drainage today. Wound VAC canister demonstrates very little collection/drainage of blood. Patient has a hemoglobin A1c of 10.5%, this has remained unchanged from his last A1c.? I stressed again today continued diet modifications for proper glycemic control to aid in his healing and overall health.?He was encouraged to remain following with his stock pitcher so that he may achieve a lower A1c. Infection: During surgical intervention 03/24/22 the tissues demonstrated normal integrity and were not easily dissectible through fascial planes with a finger as seen with typical necrotizing fasciitis cases.?He did however have soft tissue crepitus with foul odor consistent with a gas gangrene, confirmed by radiograph on 03/24/2022.? 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 WBC 16.3 with left shift prior to surgical intervention.?WBC currently within normal limits.? He is finished IV antibiotic course and PICC line removed. Sx Cultures: Culture of wound/ulceration &?Bone culture fifth toe/fifth metatarsal demonstrates staph epi, Enterococcus faecalis, Streptococcus mitis/oralis, Turicella otitidis, Enterococcus casseliflavius, Peptostreptococcus prevotil, Prevotella bivia.? Cultures post surgical clearance demonstrate no growth. Blood cultures: Demonstrate no growth Wound: Wound underwent debridement as noted in clinical panel above today. Healthy granular tissue noted with no localized signs of infection. No purulent drainage noted, no malodor noted. Wound is continuing to granulate in well. He underwent debridement of the necrotic 4th metatarsal head on 05/24/22.? Wound measures 4.4 cm x 4.0 cm x 0.4 cm.? He is amendable to performing dives.? He has obtained vascular studies, EKG, chest x-ray, and routine labs to undergo clearance for HBO therapy. He has an abnormal ECG and I discussed with him today obtaining cardiac clearance prior to beginning dives. Once cleared he will begin hyperbaric dives. He was approved for epi fix graft. Epi fix mesh graft #1 applied to the wound bed two weeks ago, however we will continue to hold further application due to recent malodor of his wound site. No expressible purulent drainage noted. We will also refrain from reapplication of his wound VAC today. Radiographs were ordered of the left foot today 05/31/22. Radiographs demonstrate: Amputation of the fifth metatarsal at the level of the mid diaphysis. There is interval development of osseous destruction of the base of the fourth proximal phalanx and distal fourth metatarsal suspicious of osteomyelitis. Further debridement was performed on 05/31/22 removing nonviable tissue in the base of his proximal phalanx of the fourth digit. There is improvement in the appearance of his wound today versus previous visit with no malodor noted. I am recommending continued Dakin's wet-to-dry dressing for 1 week. He is to change this dressing daily. He will continue oral abx doxycycline 100 mg twice daily x14 days and levofloxacin 750 mg p.o. every 24 hours x14 days. I will continue to monitor him for any progressing signs of infection. He is aware that further surgical intervention may be required pending his progress. Dressings: Wound VAC removed today.? VAC change will be held for 06/11/2022.?Wet to dry Dakins Dressings to be changed daily.? He was instructed to keep his dressings clean, dry, and intact to the left foot.?Continue to elevate the left lower extremity at all times of rest. Patient is to remain nonweightbearing to the left lower extremity with as sistance of a knee scooter Visiting nursing to assist in dressing changes to the left foot.?We will look to re-appy wound VAC again at his next wound care visit. He will return to the wound care center in 1 week for continued localized wound care and close monitoring. Note: [employer] speech recognition driftman software was used to create portions of this document. Sound-alike and misspelled words, as well as other driftman errors may be contained in the documentation.
== END 2022-06-08 23:59 | disposition home or self-care (01) ==
LOC: WC 09:00
PROVIDERS: PCP Internal Medicine; Referring Provider Podiatrist; Visit Provider Student in an Organized Health Care Education/Training Program
DX: E11.621 Type 2 diabetes mellitus with foot ulcer (principal); T87.89 Other complications of amputation stump; L97.522 Non-pressure chronic ulcer of other part of left foot with fat layer exposed; M86.8X7 Other osteomyelitis, ankle and foot; E11.69 Type 2 diabetes mellitus with other specified complication; E11.42 Type 2 diabetes mellitus with diabetic polyneuropathy; Y83.5 Amputation of limb(s) as the cause of abnormal reaction of the patient, or of later complication, without mention of misadventure at the time of the procedure; Z94.0 Kidney transplant status
CPT/HCPCS: 11042; 11044; 15275; 36415; 71046; 80053; 83036; 84134; 84156; 85652; 93005; Q4186

== ENCOUNTER 2022-07-09 10:15 | Outpatient (RCR) | payer MEDICARE, MEDICAID, SELFPAY ==
[2022-06-09 01:21] VITALS: BP 117/73; PULSE 63; RESP 16; TEMP 36.6; BMI 34.2
--- NOTE | 2022-06-14 09:04 | PCM.WC.PN ---
History of Present Illness Date of Service: 06/14/22 Chief Complaint: Right leg wound History of Wound: 46-year-old male with diabetic neuropathy returns to clinic today to follow-up for a left foot ulcer. He denies any changes at this time. He denies pain or other illness. He has been compliant. Patient denies any constitutional symptoms at his appointment today. Patient has a recent A1c greater than 8. Patient has a 1-year-old kidney transplant. He has been compliant with treatment at this time. Patient noted some diarrhea with the antibiotics he is taking. Denies any constitutional symptoms or new complaints at this time. 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 He states he is taking his oral antibiotics as instructed, and has been packing the wound with Dakin's wet-to-dry dressing twice daily.?He denies any constitutional symptoms.?He continues to deny any pain today.?He has no further complaints today. Objective Data Objective Data Vital Signs: Vital Signs Temp Pulse Resp BP 97.8 F 63 16 117/73 06/09/22 01:21 06/09/22 01:21 06/09/22 01:21 06/09/22 01:21 Weight: 102.058 kg Body Mass Index (BMI) 34.2 Physical Exam Narrative Patient is alert oriented to person, place and time.? Patient ambulates with assistance of a knee scooter on the left.? And diabetic shoe on the right. Vascular: There are atrophic changes of the skin such as thinning shiny taut appearance absent digital hair growth.? Pulses are grossly palpable 2 out of 4 dorsalis pedis and posterior tibial bilateral feet.? Mild +1 pitting edema to bilateral lower extremity. Neurologic: Light touch protective sensation completely absent to bilateral lower extremity. Dermatologic: Healed right hallux ulceration.? Digital wounds to left foot healed at this time.?Status post partial fifth ray amputation left foot with healthy granular wound at the distal aspect of the amputation site.?Lateral fourth digit demonstrates healed blister with No signs of infection. Musculoskeletal: No gross wound forming deformity.?Muscular strength full to bilateral lower extremity compartments.? No crepitus or pain noted to the wound or periwound areas. Const alert, oriented x3 and no apparent distress General Appearance: cooperative HEENT normocephalic Eyes General Eye: normal appearance of both eyes Neck General: normal visual inspection Lymph Lymphatic: no lymphadenopathy noted and no lymphedema noted Resp normal respiratory effort Cardio regular rate and regular rhythm Extremity normal capillary refill, no joint enlargement, no calf tenderness and no pedal edema Peripheral Pulses: Yes posterior tibial pulses present and dorsalis pedis pulses present Skin no rashes or lesions noted, skin turgor normal and no jaundice Wound Narrative: Left foot: Partial fifth ray resection noted.? Wound site measures 4.7 cm x 3.6 cm x 2.0 cm.? There is localized rubor about the wound rim.?There is no expressible purulent drainage, no malodor, no other localized signs of infection.? Wound demonstrates healthy granular layer with adequate tissue bleeding.? There is a healed blister noted to the dorsal lateral aspect of the fourth digit with no local signs of infection. Neuro oriented x3 and moves all extremities Debridement Note Debridement Note Wound debrided: Lateral fifth metatarsal stump Laterality: Left Wound Grade/Stage: Gustafson stage III Type of Debridement: Excisional debridement Anesthesia Used: 5% Lidocaine Gel Depth: Down to and including healthy tissue and in the subcutaneous layer Percentage of wound debrided: 100 Instrument Used: 3mm curette Tissue Removed: Fibrous, devitalized subcutaneous, biofilm, slough Severity: Fat Layer Exposed Amount of bleeding with debridement: Mild Bleeding Controlled with: Compression and gauze Patient tolerated procedure: Patient tolerated procedure well Assessment/Plan Assessment/Plan (1) 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 exposed: CODE(S): L97.522 - 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 exposed (2) 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 s/p I&D gas gangrene left foot with partial fifth ray amputation and excision of chronic diabetic ulceration.? POV #14 (DOS: 03/24/2022) POD #81 Left lower extremity: No edema noted. Fifth digit amputation noted. Patient has a hemoglobin A1c of 10.5%, this has remained unchanged from his last A1c.? I stressed again today continued diet modifications for proper glycemic control to aid in his healing and overall health.?He was encouraged to remain following with his ecologist technician so that he may achieve a lower A1c. Infection: During surgical intervention 03/24/22 the tissues demonstrated normal integrity and were not easily dissectible through fascial planes with a finger as seen with typical necrotizing fasciitis cases.?He did however have soft tissue crepitus with foul odor consistent with a gas gangrene, confirmed by radiograph on 03/24/2022.? 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 WBC 16.3 with left shift prior to surgical intervention.?WBC currently within normal limits.? He is finished IV antibiotic course and PICC line removed. Sx Cultures: Culture of wound/ulceration &?Bone culture fifth toe/fifth metatarsal demonstrates staph epi, Enterococcus faecalis, Streptococcus mitis/oralis, Turicella otitidis, Enterococcus casseliflavius, Peptostreptococcus prevotil, Prevotella bivia.? Cultures post surgical clearance demonstrate no growth. Blood cultures: Demonstrate no growth Wound: Wound underwent debridement as noted in clinical panel above today. Healthy granular tissue noted with no localized signs of infection.? No purulent drainage noted, no malodor noted.? Wound is continuing to granulate in well. He underwent debridement of the necrotic 4th metatarsal head on 05/24/22.? Wound measures 4.3 cm x 3.6 cm x 0.3 cm.? He is amendable to performing dives.? He has obtained vascular studies, EKG, chest x-ray, and routine labs to undergo clearance for HBO therapy. He has an abnormal ECG and I discussed with him today obtaining cardiac clearance prior to beginning dives, still awaiting cardiology visit. Once cleared he will begin hyperbaric dives. He was approved for epi fix graft.? Epi fix mesh graft #1 applied to the wound bed three weeks ago, however we will continue to hold further application due to recent malodor of his wound site.? No expressible purulent drainage noted.? We will also refrain from reapplication of his wound VAC today. Wound Vac to be discontinued in favor of Dakin's wet to dry dressing. Radiographs were ordered of the left foot 05/31/22. Radiographs demonstrate: Amputation of the fifth metatarsal at the level of the mid diaphysis.?There is interval development of osseous destruction of the base of the fourth proximal phalanx and distal fourth metatarsal suspicious of osteomyelitis.Further debridement was performed on 05/31/22 removing nonviable tissue in the base of his proximal phalanx of the fourth digit.? There is improvement in the appearance of his wound today versus previous visit with no malodor noted. I am recommending continued Dakin's wet-to-dry dressing.? He is to change this dressing daily. He has finished oral antibiotic course. I will continue to monitor him for any progressing signs of infection.?He is aware that further surgical intervention may be required pending his progress. Dressings: Wound VAC has been d/c.?Wet to dry Dakins Dressings to be changed daily.? He was instructed to keep his dressings clean, dry, and intact to the left foot.?Continue to elevate the left lower extremity at all times of rest. Patient is to remain nonweightbearing to the left lower extremity with assistance of a knee scooter Visiting nursing to assist in dressing changes to the left foot.?We will look to re-appy wound VAC again at his next wound care visit. He will return to the wound care center in 1 week for continued localized wound care and close monitoring. Note: [employer] speech recognition front end wheel loader operator software was used to create portions of this document. Sound-alike and misspelled words, as well as other front end wheel loader operator errors may be contained in the documentation.
[2022-06-14 09:10] VITALS: BP 127/69; PULSE 106; TEMP 36.6; BMI 34.2
[2022-06-21 09:19] VITALS: BP 134/71; PULSE 91; TEMP 36.4; BMI 34.2
--- NOTE | 2022-06-21 09:28 | PCM.WC.PN ---
History of Present Illness Date of Service: 06/21/22 Chief Complaint: Right leg wound History of Wound: 46-year-old male with diabetic neuropathy returns to clinic today to follow-up for a left foot ulcer. He denies any changes at this time. He denies pain or other illness. He has been compliant. Patient denies any constitutional symptoms at his appointment today. Patient has a recent A1c greater than 8. Patient has a 1-year-old kidney transplant. He has been compliant with treatment at this time. Patient noted some diarrhea with the antibiotics he is taking. Denies any constitutional symptoms or new complaints at this time. 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 He has finished the oral antibiotics as instructed, and has been packing the wound with Dakin's wet-to-dry dressing twice daily.?He states cardiology has still not contacted him. He denies any constitutional symptoms.?He continues to deny any pain today.?He has no further complaints today. Objective Data Objective Data Vital Signs: Vital Signs Temp Pulse Resp BP 97.6 F L 91 16 134/71 H 06/21/22 09:19 06/21/22 09:19 06/09/22 01:21 06/21/22 09:19 Weight: 102.058 kg Body Mass Index (BMI) 34.2 Physical Exam Narrative Patient is alert oriented to person, place and time.? Patient ambulates with assistance of a knee scooter on the left.? And diabetic shoe on the right. Vascular: There are atrophic changes of the skin such as thinning shiny taut appearance absent digital hair growth.? Pulses are grossly palpable 2 out of 4 dorsalis pedis and posterior tibial bilateral feet.? Mild +1 pitting edema to bilateral lower extremity. Neurologic: Light touch protective sensation completely absent to bilateral lower extremity. Dermatologic: Healed right hallux ulceration.? Digital wounds to left foot healed at this time.?Status post partial fifth ray amputation left foot with healthy granular wound at the distal aspect of the amputation site.?Lateral fourth digit demonstrates healed blister with No signs of infection. Musculoskeletal: No gross wound forming deformity.?Muscular strength full to bilateral lower extremity compartments.? No crepitus or pain noted to the wound or periwound areas. Const alert, oriented x3 and no apparent distress General Appearance: cooperative HEENT normocephalic Eyes General Eye: normal appearance of both eyes Neck General: normal visual inspection Lymph Lymphatic: no lymphadenopathy noted and no lymphedema noted Resp normal respiratory effort Cardio regular rate and regular rhythm Extremity normal capillary refill, no joint enlargement, no calf tenderness and no pedal edema Skin no rashes or lesions noted, skin turgor normal and no jaundice Wound Narrative: Left foot: Partial fifth ray resection noted.? Wound site measures 4.3 cm x 3.4 cm x 0.2 cm.? There is localized rubor about the wound rim.?There is no expressible purulent drainage, no malodor, no other localized signs of infection.? Wound demonstrates healthy granular layer with adequate tissue bleeding.? There is a healed blister noted to the dorsal lateral aspect of the fourth digit with no local signs of infection. Neuro oriented x3 and moves all extremities Debridement Note Debridement Note Wound debrided: Fifth metatarsal stump Laterality: Left Wound Grade/Stage: Gustafson stage III Type of Debridement: Excisional debridement Anesthesia Used: 5% Lidocaine Gel Depth: Down to and including healthy tissue and in the subcutaneous layer Percentage of wound debrided: 100 Instrument Used: 3mm curette Tissue Removed: Fibrous, devitalized subcutaneous, biofilm, slough Severity: Fat Layer Exposed Amount of bleeding with debridement: Mild Bleeding Controlled with: Compression and gauze Patient tolerated procedure: Patient tolerated procedure well Post-Debridement Measurements and Additional Note: Post-Debridement Measurements/Treatment - Nurse 1 - General Ulcer Assessment Start: 06/14/22 09:10 Freq: Status: Active Protocol: HOLLY Activity Type Activity Date Activity User E-sign Co-sign Detail Recorded Client Recorded Date Recorded By Document 06/14/22 09:10 JOE [id number] 06/14/22 09:12 KR Document 06/21/22 09:19 JOE [id number] 06/21/22 09:21 KR 06/14/22 06/21/22 09:10 09:19 - Today's Visit Information Type of service Follow-up Visit Follow-up Visit (Physician/OCCUPATIONAL THERAPY PROFESSOR (Physician/OCCUPATIONAL THERAPY PROFESSOR ) ) Arrival Mode Ambulatory Ambulatory Patient Identification Verified (Name & Yes Yes ) Height and Weight Body Mass Index (BMI) 34.2 34.2 BMI Classification Obese Obese Vital Signs Temperature (97.8 F-99.1 F) 97.9 F 97.6 F L Temperature Source Temporal Temporal Pulse Rate (60-100) 106 H 91 Pulse Location Monitor Monitor Blood Pressure (90/60-120/80) 127/69 H 134/71 H Blood Pressure Mean (mm Hg) 88 92 Source Monitor Position Semi-Fowlers Blood Pressure Location Left Arm History Since Last Visit- (Skip if this is Patient's initial visit) Have you changed medications since your No No last visit? Any new allergies or adverse reactions No No Had a fall/change in ADL's that may No No increase risk of falls Signs or symptoms of abuse and/or No No neglect since last visit Have you been in the hospital since your No No last visit? Has dressing in place as prescribed Yes Yes Has compression in place as prescribed N/A N/A Has offloadiing in place as prescribed N/A N/A Experienced any changes in pain level or No No management Left Footwear Regular Shoe Regular Shoe Right Footwear Regular Shoe Regular Shoe Pain Scale: 0-10 Numeric Is Patient Pain Free? Yes Yes WC - Nurse 1 - General Ulcer Measurement Start: 06/14/22 09:10 Freq: Status: Active Protocol: Activity Type Activity Date Activity User E-sign Co-sign Detail Recorded Client Recorded Date Recorded By Document 06/14/22 09:10 [id number] 06/14/22 09:12 KR Document 06/21/22 09:19 KR [id number] 06/21/22 09:21 KR 06/14/22 06/21/22 09:10 09:19 Wound Center Nurse 1 #10 LL FOOT -Current Size (cm) - Length 3.2 3.2 -Current Size (cm) - Width 4.4 4.5 -Current Size (cm) - Depth 0.3 0.2 -Total Square Cm 14.08 14.40 -Exudate Amt Medium Large -Exudate Type Serosanguineous Serosanguineous -Wound Margin Distinct, Distinct, Outline Outline Attached Attached -Granulation Amt Medium (34-66%) Large (67-100%) -Granulation Quality Winslow Winslow,Red -Necrosis Amt Medium (34-66%) Large (67-100%) -Necrotic Tissue Type Adherent Slough Adherent Slough -Texture (Dunia-wound Skin Appearance) Assessed,Callus Assessed, ,Scarring Scarring -Moisture (Dunia-wound Skin Appearance) Assessed, No Abnormality, Maceration Assessed -Color (Dunia-wound Skin Appearance) No Abnormality, No Abnormality, Assessed Assessed -Temperature (Dunia-wound Skin No Abnormality No Abnormality Appearance) (Pt Warm) (Pt Warm) -Tenderness on Palpation (Dunia-wound No No Skin Appearance) -Ulcer Cleansing Soap and Water Rinsed/ Irrigated with Saline -Foul Odor after Cleansing No No -Anesthetic Used 5% Lidocaine 5% Lidocaine Gel Gel Left Calf (cm) 43 Left Ankle (cm) 25.5 WC - Nurse 2 - General Ulcer CM Notes Start: 06/14/22 09:10 Freq: Status: Active Protocol: Activity Type Activity Date Activity User E-sign Co-sign Detail Recorded Client Recorded Date Recorded By Document 06/14/22 12:34 PL [id number] 06/14/22 12:35 PL 06/14/22 12:34 Wound Center Nurse 2 -Time 09:41 -Correct Patient Yes -Correct Side, Site, Position Yes -Correct Procedure Yes -Procedure Performed Yes -Type of Procedure Debridement -Clinical Debridement Subcutaneous -Tissue Removed Subcutaneous -Post Debridement (cm) - Length 4.3 -Post Debridement (cm) - Width 3.6 -Post Debridement (cm) - Depth 0.3 -Total Square (Post) (cm) 15.48 -Area of Debridement (cm) - Length 4.3 -Area of Debridement (cm) - Width 3.6 -Total Square (Area) (cm) 15.48 -Tunneling No -Undermining/Tunneling No -Circular Undermining No -Wound/Ulcer Outcome Not Healed -Ulcer Cleansing Rinsed/ Irrigated with Saline -Foul Odor after Cleansing No -Bioengineered Tissue No -Bleeding Controlled with Pressure -Treatment Response Procedure Tolerated Well -Debridement - Subq, 1st 20sq cm Yes Pain Scale: 0-10 Numeric Is Patient Pain Free? Yes - Nurse 3 - General Ulcer D/C NN Start: 06/14/22 09:10 Freq: Status: Active Protocol: Activity Type Activity Date Activity User E-sign Co-sign Detail Recorded Client Recorded Date Recorded By Document 06/14/22 09:51 JOE [id number] 06/14/22 09:51 KR 06/14/22 09:51 Wound Care Nurse 3 #10 LL FOOT -Ulcer Cleansing Rinsed/ Irrigated with Saline -Other Dressing dakins -Primary Dressing Covered/Secured with Dry Gauze, Secured with Tape Pain Scale: 0-10 Numeric Is Patient Pain Free? 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 s/p I&D gas gangrene left foot with partial fifth ray amputation and excision of chronic diabetic ulceration.? POV #15 (DOS: 03/24/2022) POD #88 Left lower extremity: No edema noted. Fifth digit amputation noted. Patient has a hemoglobin A1c of 10.5%, this has remained unchanged from his last A1c.? I stressed again today continued diet modifications for proper glycemic control to aid in his healing and overall health.?He was encouraged to remain following with his manager social so that he may achieve a lower A1c. Infection: During surgical intervention 03/24/22 the tissues demonstrated normal integrity and were not easily dissectible through fascial planes with a finger as seen with typical necrotizing fasciitis cases.?He did however have soft tissue crepitus with foul odor consistent with a gas gangrene, confirmed by radiograph on 03/24/2022.? 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 WBC 16.3 with left shift prior to surgical intervention.?WBC currently within normal limits.? He is finished IV antibiotic course and PICC line removed. Sx Cultures: Culture of wound/ulceration &?Bone culture fifth toe/fifth metatarsal demonstrates staph epi, Enterococcus faecalis, Streptococcus mitis/oralis, Turicella otitidis, Enterococcus casseliflavius, Peptostreptococcus prevotil, Prevotella bivia.? Cultures post surgical clearance demonstrate no growth. Blood cultures: Demonstrate no growth Wound: Wound underwent debridement as noted in clinical panel above today. Healthy granular tissue noted with no localized signs of infection.? No purulent drainage noted, no malodor noted.? Wound is continuing to granulate in well. He underwent debridement of the necrotic 4th metatarsal head on 05/24/22.? Wound measures 4.3 cm x 3.4 cm x 0.2 cm.? He is amendable to performing dives.? He has obtained vascular studies, EKG, chest x-ray, and routine labs to undergo clearance for HBO therapy. He has an abnormal ECG and I discussed with him today obtaining cardiac clearance prior to beginning dives, still awaiting cardiology visit. Bail Bond Agent will be contacted to arrange clearance. Once cleared he will begin hyperbaric dives. He was approved for epi fix graft.? Epi fix mesh graft #2 applied to the wound bed today. He is not to get the dressing wet and to leave the dressings clean, dry, and intact to the left foot. No expressible purulent drainage noted.?Radiographs were ordered of the left foot 05/31/22. Radiographs demonstrate: Amputation of the fifth metatarsal at the level of the mid diaphysis.?There is interval development of osseous destruction of the base of the fourth proximal phalanx and distal fourth metatarsal suspicious of osteomyelitis.Further debridement was performed on 05/31/22 removing nonviable tissue in the base of his proximal phalanx of the fourth digit.? There is continued improvement in the appearance of his wound today. He has finished oral antibiotic course. I will continue to monitor him for any progressing signs of infection.?He is aware that further surgical intervention may be required pending his progress. Dressings: Epi fix mesh graft, Adaptic touch and anchored with Steri-Strips with dry sterile dressing.? He was instructed to keep his dressings clean, dry, and intact to the left foot.?Continue to elevate the left lower extremity at all times of rest. Patient is to remain nonweightbearing to the left lower extremity with assistance of a knee scooter Visiting nursing to assist in dressing changes to the left foot.?We will look to re-appy wound VAC again at his next wound care visit. He will return to the wound care center in 1 week for continued localized wound care and close monitoring. Note: [employer] speech recognition garde manager software was used to create portions of this document. Sound-alike and misspelled words, as well as other garde manager errors may be contained in the documentation.
--- NOTE | 2022-06-26 16:14 | PCM.CONHBO ---
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 Patient has a non healing ulcer on his left lateral foot that is not healing as expected. He has a history of DM type II that has not been controlled. He states his blood sugars are managed his kidney transplant team. X-rays, vascular studies and labs reviewed. Cardiology clearance reviewed. Patient would be a good candidate for HBOT to help with his Gustafson stage III ulcer healing to improve oxygenation to the tissue. Education given and videos info watched. Will apply for approval for HBOT. Greater than 25 minutes spent with patient, evaluation, reviewing medical records, labs and xrays. History of Present Illness Date of Service: 06/26/22 Chief Complaint: Left fifth metatarsal stump History of Wound: Patient is a 51-year-old male who presents to the wound care center for evaluation for hyperbaric oxygen therapy. He has been seeing Dr. 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 His ulcer is not making the progress that it should. He has a Gustafson stage III ulcer on his left foot. He uses a knee scooter. 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 There is interval development of osseous destruction of the head and distal diaphysis of the fourth metatarsal and base of the fourth proximal phalanx. Arterial study from 01/09/22, Right RANJAN - 1.19, Left RANJAN - NC, Left digital-brachial index is 0.67. The left digital-brachial index is mildly diminished. There is evidence of arterial calcification at ankle level on the left. Arterial flow appears normal at ankle level bilaterally, and at digital level on the right. There is evidence of mild arterial occlusive disease at digital level on the left. MRI of left lower extremity from 10/07/19 showed Marrow edema consistent osteomyelitis of the distal phalanges of the fourth and fifth toes. Soft tissue swelling. He has a history of DM Type II, last HgA1c 10.5 on 05/31/22, Kidney transplant one year ago, peripheral vascular disease, atherosclerotic heart disease, AMI, neuropathy, and GERD. He has received cardiac clearance from Dr. Oneill. Chest x-ray from 05/31/22 is normal. Today he denies fever, chills, nausea, vomiting. Progress of Wound: Wound care is Epifix, dressing dry and intact. [facility] Medical History (Reviewed 06/28/22 @ 16:00 by Suzanne Cornelius COMMODITY MANAGEMENT SPECIALIST, COMMODITY MANAGEMENT SPECIALIST-C) Acute hypoxemic respiratory failure Acute on chronic diastolic CHF (congestive heart failure) Acute respiratory failure with hypoxia ILDA (acute kidney injury) Anasarca associated with disorder of kidney Anemia of chronic renal failure, stage 4 (severe) Anxiety and depression Atherosclerotic heart disease of cheesh-na coronary artery without angina pectoris Autonomic neuropathy Blind left eye Cellulitis and abscess of right leg Cellulitis of left lower limb Chewing tobacco nicotine dependence Chronic renal failure, stage 4 (severe) Chronic renal failure, stage 5 Chronic ulcer of 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 COVID-19 COVID-19 Diabetes mellitus type II, uncontrolled Diabetic foot infection Diabetic nephropathy Diabetic neuropathy Diabetic retinopathy Dyspnea Essential hypertension Fistula (~12/2018) Gas gangrene of foot GERD (gastroesophageal reflux disease) History of acute myocardial infarction History of left heart catheterization (LHC) (~06/26/11) HLD (hyperlipidemia) Hypertensive emergency Hypoglycemia Hypokalemia Hypoxemia Kidney failure Kidney stones Necrotizing fasciitis 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 exposed Noncompliance Obesity (BMI 30-39.9) Pneumonia Problem with dialysis access Pulmonary edema Respiratory failure Retention, urine Right leg pain 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 Vision problems Home Medications aspirin 81 mg chewable tablet 81 mg PO DAILY@0800 heart health 08/21/18 [History Last Taken 10/06/19] insulin lispro 100 unit/mL subcutaneous pen See Protocol SQ ACHS blood sugar 10/06/19 [History Last Taken 10/06/19] insulin glargine 100 unit/mL (3 mL) subcutaneous pen 0 unit subcut QHS blood sugar 08/11/20 [History Last Taken Unknown] atorvastatin 20 mg tablet (Lipitor) 20 mg PO QHS cholesterol 09/18/21 [History Last Taken Unknown] bupropion HCl 150 mg 24 hr tablet, extended release (Wellbutrin XL) 300 mg PO DAILY mood 09/18/21 [History Last Taken Unknown] docusate sodium 100 mg capsule (Colace) 100 mg PO DAILY constipation 09/18/21 [History Last Taken Unknown] mycophenolate mofetil 250 mg capsule (CellCept) 500 mg PO BID rejection med 09/18/21 [History Last Taken Unknown] pantoprazole 20 mg tablet,delayed release (Protonix) 20 mg PO DAILY gerd 09/18/21 [History Last Taken Unknown] prednisone 5 mg tablet 5 mg PO DAILY steroid 09/18/21 [History Last Taken Unknown] tacrolimus 1 mg tablet,extended release 24 hr (Envarsus XR) 1 mg PO DAILY rejection med 09/18/21 [History Last Taken Unknown] carvedilol 25 mg tablet 25 mg PO BID 12/26/21 [History Last Taken Unknown] cholecalciferol (vitamin D3) 25 mcg (1,000 unit) capsule (Vitamin D3) 50 mcg PO QWEEK 12/26/21 [History Last Taken Unknown] gabapentin 100 mg tablet 100 mg PO QHS 12/26/21 [History Last Taken Unknown] ampicillin-sulbactam 3 gram solution for injection 3 g IV Q8 40 days #120 ea 03/27/22 [Rx Last Taken Unknown] vancomycin 1 gram/200 mL in dextrose 5 % intravenous piggyback 1,000 mg IV Q12H 40 days #120 mL 03/27/22 [Rx Last Taken Unknown] Allergy/AdvReac Type Severity Reaction Status Date / Time No Known Allergies Allergy Verified 01/19/22 10:41 Family History (Reviewed 06/28/22 @ 16:00 by Suzanne Cornelius COMMODITY MANAGEMENT SPECIALIST, COMMODITY MANAGEMENT SPECIALIST-C) Mother Heart disease Hypertension Father Cancer Brother Cancer Diabetes Sister Diabetes Surgical History History of appendectomy History of arteriovenostomy for renal dialysis (~08/2018) History of artificial lens replacement History of cholecystectomy History of eye surgery Kidney replaced by transplant Renal transplant recipient Status post insertion of dialysis catheter (~08/2018) Social History household members: spouse Smoking Status: Never smoker second hand exposure: No alcohol intake: never substance use type: does not use caffeine: No ROS Constitutional Constitutional: Denies change in weight, chills or fever(s) Eyes Eyes: Denies change in vision ENT HEENT: Denies headache(s), hearing loss or sinus pain Cardiovascular Cardiovascular: Denies chest pain, dyspnea or lightheadedness Respiratory/Chest Respiratory/Chest: Denies chest tightness or cough Gastrointestinal Gastrointestinal: Denies abdominal pain, diarrhea, nausea or vomiting Musculoskeletal Musculoskeletal: Denies joint pain Integumentary Integumentary: Reports as per HPI and skin ulcer Neurologic Neurologic: Reports abnormal gait and numbness; Denies confusion, frequent falls or headache(s) Psychiatric Psychiatric: Denies anxiety or depression Physical Exam Physical Exam Const alert, oriented x3 and no apparent distress General Appearance: cooperative HEENT normocephalic Head and Scalp: normocephalic Face and Sinus: normal facial exam Nose: nares normal and nasal mucous membranes and turbinates normal Tympanic Membrane: TM's normal bilaterally Eyes PERRL Neck no lymphadenopathy Lymph Lymphatic: no lymphadenopathy noted and no lymphedema noted Resp normal respiratory effort, no use of accessory muscles and clear to auscultation bilaterally Effort and Inspection: able to speak in complete sentences Cardio regular rate and regular rhythm GI normal to inspection, nondistended, normoactive bowel sounds, soft to palpation and non-tender Extremity full ROM and normal capillary refill Skin Wound Narrative: Left lateral foot ulcer dressing is dry and intact. He has Epifix in place. Neuro moves all extremities Psych mental status grossly normal and affect normal Appearance: well kempt Assessment and Debridement #1 RT SUPERIOR POST CALF: Debridement not Completed: No debridement was completed today Nursing Assessment and Debridement Post-Debridement Measurements and Additional Note: Post-Debridement Measurements/Treatment WC - Nurse 2 - General Ulcer CM Notes Start: 06/14/22 09:10 Freq: Status: Active Protocol: Activity Type Activity Date Activity User E-sign Co-sign Detail Recorded Client Recorded Date Recorded By Document 06/26/22 15:44 CARLINE [id number] 06/26/22 15:44 CARLINE 06/26/22 15:44 Pain Scale: 0-10 Numeric Is Patient Pain Free? Yes WC - Nurse 3 - General Ulcer D/C NN Start: 06/14/22 09:10 Freq: Status: Active Protocol: Activity Type Activity Date Activity User E-sign Co-sign Detail Recorded Client Recorded Date Recorded By Document 06/26/22 15:44 CARLINE [id number] 06/26/22 15:45 CARLINE 06/26/22 15:44 Is Patient Pain Free? Yes WC - Visit Discharge Discharge Condition Stable Ambulatory Status Ambulatory, Walker Notes: Patient seen today for HBO candidate. Diagnostic reports reviewed. Ear wax removed from right ear. Charges/Coding Visit Charges Office Visits / Consults: [id number] OV L4 Est
[2022-06-28 09:05] VITALS: BP 132/78; PULSE 67; TEMP 36.4; BMI 34.2
--- NOTE | 2022-06-28 09:13 | PCM.WC.PN ---
History of Present Illness Date of Service: 06/28/22 Chief Complaint: Right leg wound History of Wound: 46-year-old male with diabetic neuropathy returns to clinic today to follow-up for a left foot ulcer. He denies any changes at this time. He denies pain or other illness. He has been compliant. Patient denies any constitutional symptoms at his appointment today. Patient has a recent A1c greater than 8. Patient has a 1-year-old kidney transplant. He has been compliant with treatment at this time. Patient noted some diarrhea with the antibiotics he is taking. Denies any constitutional symptoms or new complaints at this time. 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 States he has received clearance for HBO dives. He has been changing the outer dressings to the left foot as needed. He denies any constitutional symptoms.?He continues to deny any pain today.?He has no further complaints today. Objective Data Objective Data Vital Signs: Vital Signs Temp Pulse Resp BP 97.6 F L 67 16 132/78 H 06/28/22 09:05 06/28/22 09:05 06/09/22 01:21 06/28/22 09:05 Weight: 102.058 kg Body Mass Index (BMI) 34.2 Physical Exam Narrative Patient is alert oriented to person, place and time.? Patient ambulates with assistance of a knee scooter on the left.? And diabetic shoe on the right. Vascular: There are atrophic changes of the skin such as thinning shiny taut appearance absent digital hair growth.? Pulses are grossly palpable 2 out of 4 dorsalis pedis and posterior tibial bilateral feet.? Mild +1 pitting edema to bilateral lower extremity. Neurologic: Light touch protective sensation completely absent to bilateral lower extremity. Dermatologic: Healed right hallux ulceration.? Digital wounds to left foot healed at this time.?Status post partial fifth ray amputation left foot with healthy granular wound at the distal aspect of the amputation site.?Lateral fourth digit demonstrates healed blister with No signs of infection. Musculoskeletal: No gross wound forming deformity.?Muscular strength full to bilateral lower extremity compartments.? No crepitus or pain noted to the wound or periwound areas. Const alert, oriented x3 and no apparent distress General Appearance: cooperative HEENT normocephalic Eyes General Eye: normal appearance of both eyes Neck General: normal visual inspection Lymph Lymphatic: no lymphadenopathy noted and no lymphedema noted Resp normal respiratory effort Cardio regular rate and regular rhythm Extremity normal capillary refill, no joint enlargement, no calf tenderness and no pedal edema Skin no rashes or lesions noted, skin turgor normal and no jaundice Wound Narrative: Left foot: Partial fifth ray resection noted.? Wound site measures 4.0 cm x 3.2 cm x 0.2 cm.? There is localized rubor about the wound rim.?There is no expressible purulent drainage, no malodor, no other localized signs of infection.? Wound demonstrates healthy granular layer with adequate tissue bleeding.? There is a healed blister noted to the dorsal lateral aspect of the fourth digit with no local signs of infection. Neuro oriented x3 and moves all extremities Debridement Note Debridement Note Wound debrided: Fifth metatarsal stump/lateral foot Laterality: Left Wound Grade/Stage: Gustafson stage III Type of Debridement: Excisional debridement Anesthesia Used: 5% Lidocaine Gel Depth: Down to and including healthy tissue and in the subcutaneous layer Percentage of wound debrided: 100 Instrument Used: 3mm curette Tissue Removed: Fibrous, devitalized subcutaneous, biofilm, slough Severity: Fat Layer Exposed Amount of bleeding with debridement: Mild Bleeding Controlled with: Compression and gauze Patient tolerated procedure: Patient tolerated procedure well Post-Debridement Measurements and Additional Note: Post-Debridement Measurements/Treatment - Nurse 1 - General Ulcer Assessment Start: 06/14/22 09:10 Freq: Status: Active Protocol: HOLLY Activity Type Activity Date Activity User E-sign Co-sign Detail Recorded Client Recorded Date Recorded By Document 06/14/22 09:10 JOE [id number] 06/14/22 09:12 KR Document 06/21/22 09:19 JOE [id number] 06/21/22 09:21 KR Document 06/28/22 09:05 JOE [id number] 06/28/22 09:11 KR 06/14/22 06/21/22 06/28/22 09:10 09:19 09:05 - Today's Visit Information Type of service Follow-up Visit Follow-up Visit Follow-up Visit (Physician/TRIMMER SAWYER (Physician/TRIMMER SAWYER (Physician/TRIMMER SAWYER ) ) ) Arrival Mode Ambulatory Ambulatory Ambulatory Patient Identification Verified (Name & Yes Yes Yes ) Height and Weight Body Mass Index (BMI) 34.2 34.2 34.2 BMI Classification Obese Obese Obese Vital Signs Temperature (97.8 F-99.1 F) 97.9 F 97.6 F L 97.6 F L Temperature Source Temporal Temporal Temporal Pulse Rate (60-100) 106 H 91 67 Pulse Location Monitor Monitor Monitor Blood Pressure (90/60-120/80) 127/69 H 134/71 H 132/78 H Blood Pressure Mean (mm Hg) 88 92 96 Source Monitor Manual Position Semi-Fowlers Sitting Blood Pressure Location Left Arm Left Arm History Since Last Visit- (Skip if this is Patient's initial visit) Have you changed medications since your No No No last visit? Any new allergies or adverse reactions No No No Had a fall/change in ADL's that may No No No increase risk of falls Signs or symptoms of abuse and/or No No No neglect since last visit Have you been in the hospital since your No No No last visit? Has dressing in place as prescribed Yes Yes Yes Has compression in place as prescribed N/A N/A N/A Has offloadiing in place as prescribed N/A N/A Yes Experienced any changes in pain level or No No No management Left Footwear Regular Shoe Regular Shoe Surgical Shoe with pressure relief insole Right Footwear Regular Shoe Regular Shoe Regular Shoe Pain Scale: 0-10 Numeric Is Patient Pain Free? Yes Yes Yes WC - Nurse 1 - General Ulcer Measurement Start: 06/14/22 09:10 Freq: Status: Active Protocol: Activity Type Activity Date Activity User E-sign Co-sign Detail Recorded Client Recorded Date Recorded By Document 06/14/22 09:10 JOE [id number] 06/14/22 09:12 KR Document 06/21/22 09:19 KR [id number] 06/21/22 09:21 KR Document 06/28/22 09:05 KR [id number] 06/28/22 09:11 KR 06/14/22 06/21/22 06/28/22 09:10 09:19 09:05 Wound Center Nurse 1 #10 LL FOOT -Current Size (cm) - Length 3.2 3.2 3.3 -Current Size (cm) - Width 4.4 4.5 2.9 -Current Size (cm) - Depth 0.3 0.2 0.2 -Total Square Cm 14.08 14.40 9.57 -Exudate Amt Medium Large Small -Exudate Type Serosanguineous Serosanguineous Serosanguineous -Wound Margin Distinct, Distinct, Distinct, Outline Outline Outline Attached Attached Attached -Granulation Amt Medium (34-66%) Large (67-100%) Large (67-100%) -Granulation Quality Honea Path Honea Path,Red Honea Path -Slough/Fibrin No -Necrosis Amt Medium (34-66%) Large (67-100%) -Necrotic Tissue Type Adherent Slough Adherent Slough -Texture (Dunia-wound Skin Appearance) Assessed,Callus Assessed, Assessed,Callus ,Scarring Scarring ,Scarring -Moisture (Dunia-wound Skin Appearance) Assessed, No Abnormality, No Abnormality, Maceration Assessed Assessed -Color (Dunia-wound Skin Appearance) No Abnormality, No Abnormality, No Abnormality, Assessed Assessed Assessed -Temperature (Dunia-wound Skin No Abnormality No Abnormality No Abnormality Appearance) (Pt Warm) (Pt Warm) (Pt Warm) -Tenderness on Palpation ([place]ia-wound No No No Skin Appearance) -Ulcer Cleansing Soap and Water Rinsed/ Rinsed/ Irrigated with Irrigated with Saline Saline -Foul Odor after Cleansing No No No -Anesthetic Used 5% Lidocaine 5% Lidocaine 5% Lidocaine Gel Gel Gel Lower Limb Edema Present NA Left Calf (cm) 43 Left Ankle (cm) 25.5 WC - Nurse 2 - General Ulcer CM Notes Start: 06/14/22 09:10 Freq: Status: Active Protocol: Activity Type Activity Date Activity User E-sign Co-sign Detail Recorded Client Recorded Date Recorded By Document 06/14/22 12:34 PL [id number] 06/14/22 12:35 PL Document 06/21/22 12:33 PL [id number] 06/21/22 12:35 PL Document 06/26/22 15:44 CARLINE [id number] 06/26/22 15:44 CARLINE 06/14/22 06/21/22 06/26/22 12:34 12:33 15:44 Wound Center Nurse 2 #10 LL FOOT -Time 09:41 09:30 -Correct Patient Yes Yes -Correct Side, Site, Position Yes Yes -Correct Procedure Yes Yes -Procedure Performed Yes Yes -Type of Procedure Debridement Debridement -Clinical Debridement Subcutaneous Subcutaneous -Tissue Removed Subcutaneous Subcutaneous -Post Debridement (cm) - Length 4.3 3.2 -Post Debridement (cm) - Width 3.6 4.4 -Post Debridement (cm) - Depth 0.3 0.2 -Total Square (Post) (cm) 15.48 14.08 -Area of Debridement (cm) - Length 4.3 3.2 -Area of Debridement (cm) - Width 3.6 4.4 -Total Square (Area) (cm) 15.48 14.08 -Tunneling No No -Undermining/Tunneling No No -Circular Undermining No No -Wound/Ulcer Outcome Not Healed Not Healed -Ulcer Cleansing Rinsed/ Rinsed/ Irrigated with Irrigated with Saline Saline -Foul Odor after Cleansing No No -Bioengineered Tissue No Yes -Type of Bioengineered Tissue Epifix Mesh -Expiration Date 03/09/27 -Product Lot Number [id number] -Percent Used 100 -Bleeding Controlled with Pressure Pressure -Treatment Response Procedure Procedure Tolerated Well Tolerated Well -Debridement - Subq, 1st 20sq cm Yes No -Apply Skin Sub - 1st 25 sq cm - Feet 1 -Epifix Mesh (per sq cm) 11 Pain Scale: 0-10 Numeric Is Patient Pain Free? Yes Yes Yes WC - Nurse 3 - General Ulcer D/C NN Start: 06/14/22 09:10 Freq: Status: Active Protocol: Activity Type Activity Date Activity User E-sign Co-sign Detail Recorded Client Recorded Date Recorded By Document 06/14/22 09:51 KR [id number] 06/14/22 09:51 KR Document 06/21/22 09:51 AK [id number] 06/21/22 09:52 AK Document 06/26/22 15:44 JF [id number] 06/26/22 15:45 JF 06/14/22 06/21/22 06/26/22 09:51 09:51 15:44 Wound Care Nurse 3 #10 LL FOOT -Ulcer Cleansing Rinsed/ Irrigated with Saline -Other Dressing dakins ABD -Primary Dressing Covered/Secured with Dry Gauze, Dry Gauze & Secured with Roll Gauze, Tape Secured with Tape Right -Compression Wrap Kirill Wrap Pain Scale: 0-10 Numeric Is Patient Pain Free? Yes Yes Yes WC - Visit Discharge Discharge Condition Stable Stable Stable Ambulatory Status Ambulatory Ambulatory, Ambulatory, Walker Walker Transportation Private Auto Private Auto Medication Reconcilliation completed & Yes provided to patient/care provider Clinical Summary of Care Provided Yes Notes: Patient seen today for HBO candidate. Diagnostic reports reviewed. Ear wax removed from right ear. 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 POV #16 (DOS: 03/24/2022) POD #95 Left lower extremity: No edema noted. Fifth digit amputation noted. Patient has a hemoglobin A1c of 10.5%, this has remained unchanged from his last A1c.? I stressed again today continued diet modifications for proper glycemic control to aid in his healing and overall health.?He was encouraged to remain following with his proposal manager so that he may achieve a lower A1c. Infection: During surgical intervention 03/24/22 the tissues demonstrated normal integrity and were not easily dissectible through fascial planes with a finger as seen with typical necrotizing fasciitis cases.?He did however have soft tissue crepitus with foul odor consistent with a gas gangrene, confirmed by radiograph on 03/24/2022.? 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 WBC 16.3 with left shift prior to surgical intervention.?WBC currently within normal limits.? He is finished IV antibiotic course and PICC line removed. Sx Cultures: Culture of wound/ulceration &?Bone culture fifth toe/fifth metatarsal demonstrates staph epi, Enterococcus faecalis, Streptococcus mitis/oralis, Turicella otitidis, Enterococcus casseliflavius, Peptostreptococcus prevotil, Prevotella bivia.? Cultures post surgical clearance demonstrate no growth. Blood cultures: Demonstrate no growth Wound: Wound underwent debridement as noted in clinical panel above today. Healthy granular tissue noted with no localized signs of infection.? No purulent drainage noted, no malodor noted.? Wound is continuing to granulate in well. He underwent debridement of the necrotic 4th metatarsal head on 05/24/22.? Wound measures 4.0 cm x 3.2 cm x 0.2 cm.? He is amendable to performing dives.? He has obtained vascular studies, EKG, chest x-ray, and routine labs to undergo clearance for HBO therapy. He has an abnormal ECG and I discussed with him today obtaining cardiac clearance prior to beginning dives, he has obtained clearance by cardiology. He will begin hyperbaric dives next week. He was approved for epi fix graft.? Epi fix mesh graft #3 applied to the wound bed today. He is not to get the dressing wet and to leave the dressings clean, dry, and intact to the left foot. No expressible purulent drainage noted.?Radiographs were ordered of the left foot 05/31/22. Radiographs demonstrate: Amputation of the fifth metatarsal at the level of the mid diaphysis.?There is interval development of osseous destruction of the base of the fourth proximal phalanx and distal fourth metatarsal suspicious of osteomyelitis.Further debridement was performed on 05/31/22 removing nonviable tissue/bone in the base of his proximal phalanx of the fourth digit.? There is continued improvement in the appearance of his wound today. He has finished oral antibiotic course. I will continue to monitor him for any progressing signs of infection.?He is aware that further surgical intervention may be required pending his progress. Dressings: Epi fix mesh graft, Adaptic touch and anchored with Steri-Strips with dry sterile dressing.? He was instructed to keep his dressings clean, dry, and intact to the left foot.?Continue to elevate the left lower extremity at all times of rest. Patient is to remain nonweightbearing to the left lower extremity with assistance of a knee scooter Visiting nursing to assist in dressing changes to the left foot. He will return to the wound care center in 2 weeks for continued localized wound care and close monitoring. Note: [employer] speech recognition precinct police sergeant software was used to create portions of this document. Sound-alike and misspelled words, as well as other precinct police sergeant errors may be contained in the documentation.
--- NOTE | 2022-07-06 10:34 | WC ---
PT. blood sugar was 55 this morning was given snack and only came up tp 95 so he was unable to dive. Pt. also wanted his to read consent papers before he started tx. Paperwork was given to him to take home and go over with her.
[2022-07-06 10:35] LABS: Bedside Glucose 95 mg/dL (74-106)
[2022-07-06 12:06] LABS: Bedside Glucose 56 mg/dL (74-106)
[2022-07-06 12:06] LABS: Bedside Glucose 55 mg/dL (74-106)
--- NOTE | 2022-07-06 13:50 | HBO.PN.PCM_ITS ---
History of Present Illness Date of Service: 07/06/22 Chief Complaint: Left fifth metatarsal stump History of Wound: Patient is a 51-year-old male who presents to the wound care center for evaluation for hyperbaric oxygen therapy. He has been seeing Dr. 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 His ulcer is not making the progress that it should. He has a Gustafson stage III ulcer on his left foot. He uses a knee scooter. 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 There is interval development of osseous destruction of the head and distal diaphysis of the fourth metatarsal and base of the fourth proximal phalanx. Arterial study from 01/09/22, Right RANJAN - 1.19, Left RANJAN - NC, Left digital- brachial index is 0.67. The left digital-brachial index is mildly diminished. There is evidence of arterial calcification at ankle level on the left. Arterial flow appears normal at ankle level bilaterally, and at digital level on the right. There is evidence of mild arterial occlusive disease at digital level on the left. MRI of left lower extremity from 10/07/19 showed Marrow edema consistent osteomyelitis of the distal phalanges of the fourth and fifth toes. Soft tissue swelling. He has a history of DM Type II, last HgA1c 10.5 on 05/31/22, Kidney transplant one year ago, peripheral vascular disease, atherosclerotic heart disease, AMI, neuropathy, and GERD. He has received cardiac clearance from Dr. Oneill. Chest x-ray from 05/31/22 is normal. Today he denies fever, chills, nausea, vomiting. Progress of Wound: Wound care is Epifix, dressing dry and intact. Subjective Subjective Mr. Ramesh presented today for his initial HBO treatment for DFU Gustafson 3 left foot. His blood sugar was 55 initially and he was given juice and cookies and upon recheck it was 95 which was too low for treatment with HBO today. He was asked to give himself half of what he would usually give himself in insulin on Saturday morning and bring his regular insulin with him to give if needed prior to his treatment. He agreed with above. He also refused to sign consent for treatment with HBO and wanted his to read the consent before he signed this. He was given this and will return with it on Saturday. Objective Data Objective Data Vital Signs: Vital Signs Temp Pulse Resp BP 97.6 F L 67 16 132/78 H 06/28/22 09:05 06/28/22 09:05 06/09/22 01:21 06/28/22 09:05 Weight: 102.058 kg Body Mass Index (BMI) 34.2 Lab / Micro Data Labs: Laboratory Results - last 24 hr 07/06/22 09:58: POC Glucose 55 L 07/06/22 09:59: POC Glucose 56 L 07/06/22 10:16: POC Glucose 95 Exam Physical Exam Const alert, oriented x3 and no apparent distress Psych mental status grossly normal, thought process normal, cooperative, affect normal and speech normal Assessment and Debridement #1 RT SUPERIOR POST CALF: Debridement not Completed: No debridement was completed today Assessment/Plan Assessment/Plan (1) 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 exposed: CODE(S): L97.522 - 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 exposed (2) Type 2 diabetes mellitus with diabetic polyneuropathy: CODE(S): E11.42 - Type 2 diabetes mellitus with diabetic polyneuropathy (3) Osteomyelitis of metatarsal: CODE(S): M86.9 - Osteomyelitis, unspecified PLAN: Plan HBO treatment deferred today for blood sugar being too low. Will try again Saturday.
[2022-07-09 10:01] LABS: Bedside Glucose 210 mg/dL (74-106)
[2022-07-09 12:16] LABS: Bedside Glucose 227 mg/dL (74-106)
--- NOTE | 2022-07-09 13:31 | HBO.PN.PCM_ITS ---
History of Present Illness Date of Service: 07/09/22 Chief Complaint: Left fifth metatarsal stump History of Wound: Patient is a 51-year-old male who presents to the wound care center for evaluation for hyperbaric oxygen therapy. He has been seeing Dr. 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 His ulcer is not making the progress that it should. He has a Gustafson stage III ulcer on his left foot. He uses a knee scooter. 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 There is interval development of osseous destruction of the head and distal diaphysis of the fourth metatarsal and base of the fourth proximal phalanx. Arterial study from 01/09/22, Right RANJAN - 1.19, Left RANJAN - NC, Left digital- brachial index is 0.67. The left digital-brachial index is mildly diminished. There is evidence of arterial calcification at ankle level on the left. Arterial flow appears normal at ankle level bilaterally, and at digital level on the right. There is evidence of mild arterial occlusive disease at digital level on the left. MRI of left lower extremity from 10/07/19 showed Marrow edema consistent osteomyelitis of the distal phalanges of the fourth and fifth toes. Soft tissue swelling. He has a history of DM Type II, last HgA1c 10.5 on 05/31/22, Kidney transplant one year ago, peripheral vascular disease, atherosclerotic heart disease, AMI, neuropathy, and GERD. He has received cardiac clearance from Dr. Oneill. Chest x-ray from 05/31/22 is normal. Today he denies fever, chills, nausea, vomiting. Patient has been approved for 30 treatment of hyperbaric oxygen therapy. Subjective Subjective Today is the 1st treatment of hyperbaric oxygen therapy.? The patient is scheduled for 30 treatments total. Tolerance of hyperbaric oxygen therapy: Hyperbaric oxygen treatment was administered as per the facility's protocol.? Hyperbaric oxygen therapy was administered at 2.0 BETO in 100% oxygen for 90 minutes without air breaks.? The patient tolerated hyperbaric oxygen well, without complications or complaints. Upon emergence of the hyperbaric chamber, the patient's vital signs remained stable.? He was discharged in good condition. Objective Data Objective Data Vital Signs: Vital Signs Temp Pulse Resp BP 97.6 F L 67 16 132/78 H 06/28/22 09:05 06/28/22 09:05 06/09/22 01:21 06/28/22 09:05 Weight: 225 lb Body Mass Index (BMI) 34.2 Lab / Micro Data Labs: Laboratory Results - last 24 hr 07/09/22 09:41: POC Glucose 210 H 07/09/22 11:56: POC Glucose 227 H Exam Physical Exam Const alert, oriented x3 and no apparent distress General Appearance: cooperative HEENT normocephalic and TM's normal bilaterally Eyes PERRL Resp normal respiratory effort and clear to auscultation bilaterally Effort and Inspection: able to speak in complete sentences Cardio regular rate and regular rhythm Psych affect normal Assessment and Debridement #1 RT SUPERIOR POST CALF: Debridement not Completed: No debridement was completed today Charges/Coding Wound Center CF Procedures HBO Supervision: [id number] Hyperbaric Oxygen; supervision Assessment/Plan Assessment/Plan (1) Osteomyelitis of metatarsal: CODE(S): M86.9 - Osteomyelitis, unspecified (2) 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 exposed: CODE(S): L97.522 - 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 exposed (3) Type 2 diabetes mellitus with diabetic polyneuropathy: CODE(S): E11.42 - Type 2 diabetes mellitus with diabetic polyneuropathy PLAN: Plan The patient appears to be tolerating hyperbaric oxygen therapy well.? She will continue as per her medical treatment plan.
[2022-07-09 15:36] VITALS: BP 109/63; BP 142/83; PULSE 78; PULSE 96; RESP 18; RESP 20; TEMP 36.1; TEMP 36.6
== END 2022-07-09 23:59 | disposition home or self-care (01) ==
LOC: WC 10:15
PROVIDERS: PCP Internal Medicine; Referring Provider Podiatrist; Visit Provider Student in an Organized Health Care Education/Training Program
DX: E11.621 Type 2 diabetes mellitus with foot ulcer (principal); Z89.429 Acquired absence of other toe(s), unspecified side; T87.89 Other complications of amputation stump; L97.512 Non-pressure chronic ulcer of other part of right foot with fat layer exposed; L97.522 Non-pressure chronic ulcer of other part of left foot with fat layer exposed; M86.8X7 Other osteomyelitis, ankle and foot; E11.22 Type 2 diabetes mellitus with diabetic chronic kidney disease; E11.42 Type 2 diabetes mellitus with diabetic polyneuropathy; E11.69 Type 2 diabetes mellitus with other specified complication; N18.5 Chronic kidney disease, stage 5; I12.0 Hypertensive chronic kidney disease with stage 5 chronic kidney disease or end stage renal disease; Z79.4 Long term (current) use of insulin; I16.1 Hypertensive emergency; Z86.16 Personal history of COVID-19; Z79.82 Long term (current) use of aspirin; E78.5 Hyperlipidemia, unspecified; I25.10 Atherosclerotic heart disease of native coronary artery without angina pectoris; Y83.5 Amputation of limb(s) as the cause of abnormal reaction of the patient, or of later complication, without mention of misadventure at the time of the procedure
CPT/HCPCS: 11042; 15275; 82962; 99183; 99213; Q4186; G0277; G0463

== ENCOUNTER 2022-08-08 08:00 | Outpatient (RCR) | payer MEDICARE, MEDICAID, SELFPAY ==
[2022-07-10 00:27] VITALS: BP 109/63; PULSE 96; RESP 18; TEMP 36.1; BMI 34.2
[2022-07-10 10:11] LABS: Bedside Glucose 185 mg/dL (74-106)
[2022-07-10 12:35] LABS: Bedside Glucose 151 mg/dL (74-106)
[2022-07-10 13:36] VITALS: BP 130/66; BP 132/68; PULSE 78; PULSE 88; RESP 17; RESP 18; TEMP 35.9
--- NOTE | 2022-07-10 15:01 | HBO.PN.PCM_ITS ---
History of Present Illness Date of Service: 07/10/22 Chief Complaint: Osteomyelitis of the left foot; diabetic foot ulceration History of Wound: Patient is a 51-year-old male who presents to the wound care center for evaluation for hyperbaric oxygen therapy. He has been seeing Dr. 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 His ulcer is not making the progress that it should. He has a Gustafson stage III ulcer on his left foot. He uses a knee scooter. 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 There is interval development of osseous destruction of the head and distal diaphysis of the fourth metatarsal and base of the fourth proximal phalanx. Arterial study from 01/09/22, Right RANJAN - 1.19, Left RANJAN - NC, Left digital- brachial index is 0.67. The left digital-brachial index is mildly diminished. There is evidence of arterial calcification at ankle level on the left. Arterial flow appears normal at ankle level bilaterally, and at digital level on the right. There is evidence of mild arterial occlusive disease at digital level on the left. MRI of left lower extremity from 10/07/19 showed Marrow edema consistent osteomyelitis of the distal phalanges of the fourth and fifth toes. Soft tissue swelling. He has a history of DM Type II, last HgA1c 10.5 on 05/31/22, Kidney transplant one year ago, peripheral vascular disease, atherosclerotic heart disease, AMI, neuropathy, and GERD. He has received cardiac clearance from Dr. Oneill. Chest x-ray from 05/31/22 is normal. Today he denies fever, chills, nausea, vomiting. Patient has been approved for 30 treatment of hyperbaric oxygen therapy. Subjective Subjective Today is the 2nd treatment of hyperbaric oxygen therapy.? The patient is scheduled for 30 treatments total. Tolerance of hyperbaric oxygen therapy: Hyperbaric oxygen treatment was administered as per the facility's protocol.? Hyperbaric oxygen therapy was administered at 2.0 BETO in 100% oxygen for 90 minutes without air breaks.? The patient tolerated hyperbaric oxygen well, without complications or complaints. Upon emergence of the hyperbaric chamber, the patient's vital signs remained stable.? He was discharged in good condition. Pre- and pos-tprocedure glucose measurements are documented elsewhere. Objective Data Objective Data Vital Signs: Vital Signs Temp Pulse Resp BP 96.7 F L 88 18 130/66 H 07/10/22 13:36 07/10/22 13:36 07/10/22 13:36 07/10/22 13:36 Weight: 225 lb Body Mass Index (BMI) 34.2 Lab / Micro Data Labs: Laboratory Results - last 24 hr 07/10/22 09:51: POC Glucose 185 H 07/10/22 12:06: POC Glucose 151 H Exam Physical Exam Const alert, oriented x3, no apparent distress and well nourished General Appearance: cooperative and well developed HEENT normocephalic Head and Scalp: atraumatic Eyes PERRL and EOMs intact bilaterally Neck General: trachea midline Resp normal respiratory effort and no use of accessory muscles Effort and Inspection: able to speak in complete sentences Psych affect normal Appearance: grossly normal and well kempt Assessment/Plan Assessment/Plan (1) Osteomyelitis of metatarsal: CODE(S): M86.9 - Osteomyelitis, unspecified (2) Diabetic foot ulcer: CODE(S): E11.621 - Type 2 diabetes mellitus with foot ulcer; L97.509 - Non-pressure chronic ulcer of other part of unspecified foot with unspecified severity QUALIFIERS: Diabetes mellitus type: type 2 Laterality: left Non- pressure ulcer stage: with necrosis of bone (3) 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 exposed: CODE(S): L97.522 - 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 exposed (4) Type 2 diabetes mellitus with diabetic polyneuropathy: CODE(S): E11.42 - Type 2 diabetes mellitus with diabetic polyneuropathy PLAN: Plan The patient appears to be tolerating hyperbaric oxygen therapy well, which will be continued as per the patient's medical plan.
[2022-07-12 08:17] VITALS: BP 147/89; PULSE 91; TEMP 36.1; BMI 34.2
--- NOTE | 2022-07-12 08:32 | PN.PCM_ITS ---
History of Present Illness Date of Service: 07/12/22 Chief Complaint: Osteomyelitis of the left foot; diabetic foot ulceration History of Wound: Patient is a 51-year-old male who presents to the wound care center for evaluation for hyperbaric oxygen therapy. He has been seeing Dr. 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 His ulcer is not making the progress that it should. He has a Gustafson stage III ulcer on his left foot. He uses a knee scooter. 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 There is interval development of osseous destruction of the head and distal diaphysis of the fourth metatarsal and base of the fourth proximal phalanx. Arterial study from 01/09/22, Right RANJAN - 1.19, Left RANJAN - NC, Left digital- brachial index is 0.67. The left digital-brachial index is mildly diminished. There is evidence of arterial calcification at ankle level on the left. Arterial flow appears normal at ankle level bilaterally, and at digital level on the right. There is evidence of mild arterial occlusive disease at digital level on the left. MRI of left lower extremity from 10/07/19 showed Marrow edema consistent osteomyelitis of the distal phalanges of the fourth and fifth toes. Soft tissue swelling. He has a history of DM Type II, last HgA1c 10.5 on 05/31/22, Kidney transplant one year ago, peripheral vascular disease, atherosclerotic heart disease, AMI, neuropathy, and GERD. He has received cardiac clearance from Dr. Oneill. Chest x-ray from 05/31/22 is normal. Today he denies fever, chills, nausea, vomiting. Patient has been approved for 30 treatment of hyperbaric oxygen therapy. 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 States has started HBO dives however has to pause for tube placement for resuming dives.? He has been changing the outer dressings to the left foot as needed.? He denies any constitutional symptoms.?He continues to deny any pain today.?He has no further complaints today. Objective Data Objective Data Vital Signs: Vital Signs Temp Pulse Resp BP 97.0 F L 91 18 147/89 H 07/12/22 08:17 07/12/22 08:17 07/10/22 13:36 07/12/22 08:17 Weight: 102.058 kg Body Mass Index (BMI) 34.2 Physical Exam Narrative Patient is alert oriented to person, place and time.? Patient ambulates with assistance of a knee scooter on the left.? And diabetic shoe on the right. Vascular: There are atrophic changes of the skin such as thinning shiny taut appearance absent digital hair growth.? Pulses are grossly palpable 2 out of 4 dorsalis pedis and posterior tibial bilateral feet.? Mild +1 pitting edema to bilateral lower extremity. Neurologic: Light touch protective sensation completely absent to bilateral lower extremity. Dermatologic: Healed right hallux ulceration.? Digital wounds to left foot healed at this time.?Status post partial fifth ray amputation left foot with healthy granular wound at the distal aspect of the amputation site.?Lateral fourth digit demonstrates healed blister with No signs of infection. Musculoskeletal: No gross wound forming deformity.?Muscular strength full to bilateral lower extremity compartments.? No crepitus or pain noted to the wound or periwound areas. Const alert, oriented x3 and no apparent distress General Appearance: cooperative HEENT normocephalic Eyes General Eye: normal appearance of both eyes Neck General: normal visual inspection Lymph Lymphatic: no lymphadenopathy noted and no lymphedema noted Resp normal respiratory effort Cardio regular rate and regular rhythm Extremity normal capillary refill, no joint enlargement, no calf tenderness and no pedal edema Skin no rashes or lesions noted, skin turgor normal and no jaundice Wound Narrative: Left foot: Partial fifth ray resection noted.? Wound site measures 3.9 cm x 2.8 cm x 0.1 cm.? There is healthy appearing skin about the ulcerative rim.?There is no erythema, no expressible purulent drainage, no malodor, no other localized signs of infection.? Wound demonstrates healthy granular layer with adequate tissue bleeding. Neuro oriented x3 and moves all extremities Debridement Note Debridement Note Wound debrided: Left fifth metatarsal stump Laterality: Left Wound Grade/Stage: Gustafson stage III Type of Debridement: Excisional debridement Anesthesia Used: 5% Lidocaine Gel Depth: Down to and including healthy tissue and in the subcutaneous layer Percentage of wound debrided: 100 Instrument Used: 3mm curette Tissue Removed: Fibrous, devitalized subcutaneous, biofilm, slough Severity: Fat Layer Exposed Amount of bleeding with debridement: Mild Bleeding Controlled with: Compression and gauze Patient tolerated procedure: Patient tolerated procedure well Post-Debridement Measurements and Additional Note: Post-Debridement Measurements/Treatment - Nurse 1 - General Ulcer Assessment Start: 07/10/22 13:36 Freq: Status: Active Protocol: HOLLY Activity Type Activity Date Activity User E-sign Co-sign Detail Recorded Client Recorded Date Recorded By Document 07/12/22 08:17 JOE [id number] 07/12/22 08:19 JOE 07/12/22 08:17 WC - Today's Visit Information Type of service Follow-up Visit (Physician/DIRECT OF REAL ESTATE ) Arrival Mode Walker Patient Identification Verified (Name & Yes ) Height and Weight Body Mass Index (BMI) 34.2 BMI Classification Obese Vital Signs Temperature (97.8 F-99.1 F) 97.0 F L Temperature Source Temporal Pulse Rate (60-100) 91 Pulse Location Monitor Blood Pressure (90/60-120/80) 147/89 H Blood Pressure Mean (mm Hg) 108 Source Monitor Position Semi-Fowlers Blood Pressure Location Left Arm History Since Last Visit- (Skip if this is Patient's initial visit) Have you changed medications since your No last visit? Any new allergies or adverse reactions No Had a fall/change in ADL's that may No increase risk of falls Signs or symptoms of abuse and/or No neglect since last visit Have you been in the hospital since your No last visit? Has dressing in place as prescribed Yes Has compression in place as prescribed Yes Has offloadiing in place as prescribed N/A Experienced any changes in pain level or No management Pain Scale: 0-10 Numeric Is Patient Pain Free? Yes - Nurse 1 - General Ulcer Measurement Start: 07/10/22 13:36 Freq: Status: Active Protocol: Activity Type Activity Date Activity User E-sign Co-sign Detail Recorded Client Recorded Date Recorded By Document 07/12/22 08:17 JOE [id number] 07/12/22 08:19 JOE 07/12/22 08:17 Wound Center Nurse 1 #10 LL FOOT -Current Size (cm) - Length 3 -Current Size (cm) - Width 3 -Current Size (cm) - Depth 0.1 -Total Square Cm 9 -Exudate Amt Medium -Exudate Type Serosanguineous -Wound Margin Distinct, Outline Attached -Granulation Amt Large (67-100%) -Granulation Quality Red -Necrosis Amt None Present (0 %) -Texture (Dunia-wound Skin Appearance) Assessed, Scarring -Moisture (Dunia-wound Skin Appearance) No Abnormality, Assessed -Color (Dunia-wound Skin Appearance) No Abnormality, Assessed -Temperature (Dunia-wound Skin No Abnormality Appearance) (Pt Warm) -Tenderness on Palpation (Dunia-wound No Skin Appearance) -Ulcer Cleansing Rinsed/ Irrigated with Saline -Foul Odor after Cleansing No -Anesthetic Used 5% Lidocaine Gel Assessment/Plan Assessment/Plan (1) 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 exposed: CODE(S): L97.522 - 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 exposed (2) 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: CODE(S): Z89.422 - Acquired absence of other left toe(s) (3) Type 2 diabetes mellitus with diabetic polyneuropathy: CODE(S): E11.42 - Type 2 diabetes mellitus with diabetic polyneuropathy (4) Diabetic foot ulcer: CODE(S): E11.621 - Type 2 diabetes mellitus with foot ulcer; L97.509 - Non-pressure chronic ulcer of other part of unspecified foot with unspecified severity QUALIFIERS: Diabetes mellitus type: type 2 Laterality: left Non- pressure ulcer stage: with necrosis of bone PLAN: Plan Patient seen and evaluated in wound care center He is?s/p I&D gas gangrene left foot with partial fifth ray amputation and excision of chronic diabetic ulceration.? POV #17 (DOS: 03/24/2022) POD #109 Left lower extremity: No edema noted. Fifth digit amputation noted. Patient has a hemoglobin A1c of 10.5%, this has remained unchanged from his last A1c in March.? I stressed again today continued diet modifications for proper glycemic control to aid in his healing and overall health.?He was encouraged to remain following with his sales service route manager so that he may achieve a lower A1c. Infection: During surgical intervention 03/24/22 the tissues demonstrated normal integrity and were not easily dissectible through fascial planes with a finger as seen with typical necrotizing fasciitis cases.?He did however have soft tissue crepitus with foul odor consistent with a gas gangrene, confirmed by radiograph on 03/24/2022.? 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 WBC 16.3 with left shift prior to surgical intervention.?WBC currently within normal limits.? He is finished IV antibiotic course and PICC line removed. Sx Cultures: Culture of wound/ulceration &?Bone culture fifth toe/fifth metatarsal demonstrates staph epi, Enterococcus faecalis, Streptococcus mitis/oralis, Turicella otitidis, Enterococcus casseliflavius, Peptostreptococcus prevotil, Prevotella bivia.? Cultures post surgical clearance demonstrate no growth. Blood cultures: Demonstrate no growth Wound: Wound underwent debridement as noted in clinical panel above today. Healthy granular tissue noted with no localized signs of infection.? No purulent drainage noted, no malodor noted.? Wound is continuing to granulate in well. He underwent debridement of the necrotic 4th metatarsal head on 05/24/22.? Wound measures 3.9 cm x 2.8 cm x 0.1 cm.? He has started hyperbaric dives however following 2 dives he experienced some complications and will need to undergo tube placement in the ears upon which he will resume dives. He was approved for epi fix graft.? Epi fix mesh graft #4 applied to the wound bed today. He is not to get the dressing wet and to leave the dressings clean, dry, and intact to the left foot.? No expressible purulent drainage noted.?Radiographs were ordered of the left foot 05/31/22. Radiographs demonstrate: Amputation of the fifth metatarsal at the level of the mid diaphysis.?There is interval development of osseous destruction of the base of the fourth proximal phalanx and distal fourth metatarsal suspicious of osteomyelitis.Further debridement was performed on 05/31/22 removing nonviable tissue/bone in the base of his proximal phalanx of the fourth digit.? There is continued improvement in the appearance of his wound today with continued reduction in size. He has finished oral antibiotic course. I will continue to monitor him for any progressing signs of infection.?He is aware that further surgical intervention may be required pending his progress. Dressings: Epi fix mesh graft, Adaptic touch and anchored with Steri-Strips with dry sterile dressing.? He was instructed to keep his dressings clean, dry, and intact to the left foot.?Continue to elevate the left lower extremity at all times of rest. Patient is to remain nonweightbearing to the left lower extremity with assistance of a knee scooter Visiting nursing to assist in dressing changes to the left foot. He will return to the wound care center in 1 week for continued localized wound care and close monitoring. Note: [employer] speech recognition [employer] software was used to create portions of this document. Sound-alike and misspelled words, as well as other sprayer [employer] errors may be contained in the documentation.
[2022-07-16 08:00] LABS: Bedside Glucose 201 mg/dL (74-106)
--- NOTE | 2022-07-16 09:10 | WC ---
Pt. had bilateral ear pain at start of tx prior to reaching 1ata. Tx was aborted and pt referred back to [facility].
--- NOTE | 2022-07-16 09:47 | HBO.PN.PCM_ITS ---
History of Present Illness Date of Service: 07/16/22 Chief Complaint: Osteomyelitis of the left foot; diabetic foot ulceration History of Wound: Patient is a 51-year-old male who presents to the wound care center for evaluation for hyperbaric oxygen therapy. He has been seeing Dr. 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 His ulcer is not making the progress that it should. He has a Gustafson stage III ulcer on his left foot. He uses a knee scooter. 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 There is interval development of osseous destruction of the head and distal diaphysis of the fourth metatarsal and base of the fourth proximal phalanx. Arterial study from 01/09/22, Right RANJAN - 1.19, Left RANJAN - NC, Left digital- brachial index is 0.67. The left digital-brachial index is mildly diminished. There is evidence of arterial calcification at ankle level on the left. Arterial flow appears normal at ankle level bilaterally, and at digital level on the right. There is evidence of mild arterial occlusive disease at digital level on the left. MRI of left lower extremity from 10/07/19 showed Marrow edema consistent osteomyelitis of the distal phalanges of the fourth and fifth toes. Soft tissue swelling. He has a history of DM Type II, last HgA1c 10.5 on 05/31/22, Kidney transplant one year ago, peripheral vascular disease, atherosclerotic heart disease, AMI, neuropathy, and GERD. He has received cardiac clearance from Dr. Oneill. Chest x-ray from 05/31/22 is normal. Today he denies fever, chills, nausea, vomiting. Patient has been approved for 30 treatment of hyperbaric oxygen therapy. Subjective Subjective Today was supposed to be the 3rd treatment of hyperbaric oxygen therapy.? The patient is scheduled for 30 treatments total. He was sent to ENT last week due to a erythema in his TM. They chose not to place ear tubes. Patient's TM were unremarkable this morning before being placed in the chamber. He tolerated less than 2 minutes in the chamber and said he had 10/10 left ear pain that radiated down in his throat. His treatment was immediately stopped. Objective Data Objective Data Vital Signs: Vital Signs Temp Pulse Resp BP 97.0 F L 91 18 147/89 H 07/12/22 08:17 07/12/22 08:17 07/10/22 13:36 07/12/22 08:17 Weight: 225 lb Body Mass Index (BMI) 34.2 Lab / Micro Data Labs: Laboratory Results - last 24 hr 07/16/22 07:40: POC Glucose 201 H Exam Physical Exam Const alert and oriented x3 General Appearance: cooperative HEENT normocephalic HEENT Narrative: Before going into the HBOT chamber his TM were normal. There was cerumen in the right but was able to visualize the TM. Left TM able to visualized, no erythema. After coming out of chamber after 2 minutes under pressure, left TM had erythema, right TM had air bubbles and erythema. 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 Will refer back to ENT for tubes. I do not believe he will be able to tolerating HBOT if he does not have tubes placed. He may return for HBOT after tubes are placed. Follow up on for his wound center appointment with Dr. Medina.
[2022-07-18 08:25] LABS: Bedside Glucose 241 mg/dL (74-106)
--- NOTE | 2022-07-18 09:51 | HBO.PN.PCM_ITS ---
History of Present Illness Date of Service: 07/18/22 Chief Complaint: Osteomyelitis of the left foot; diabetic foot ulceration History of Wound: Patient is a 51-year-old male who presents to the wound care center for evaluation for hyperbaric oxygen therapy. He has been seeing Dr. 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 His ulcer is not making the progress that it should. He has a Gustafson stage III ulcer on his left foot. He uses a knee scooter. 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 There is interval development of osseous destruction of the head and distal diaphysis of the fourth metatarsal and base of the fourth proximal phalanx. Arterial study from 01/09/22, Right RANJAN - 1.19, Left RANJAN - NC, Left digital- brachial index is 0.67. The left digital-brachial index is mildly diminished. There is evidence of arterial calcification at ankle level on the left. Arterial flow appears normal at ankle level bilaterally, and at digital level on the right. There is evidence of mild arterial occlusive disease at digital level on the left. MRI of left lower extremity from 10/07/19 showed Marrow edema consistent osteomyelitis of the distal phalanges of the fourth and fifth toes. Soft tissue swelling. He has a history of DM Type II, last HgA1c 10.5 on 05/31/22, Kidney transplant one year ago, peripheral vascular disease, atherosclerotic heart disease, AMI, neuropathy, and GERD. He has received cardiac clearance from Dr. Oneill. Chest x-ray from 05/31/22 is normal. Today he denies fever, chills, nausea, vomiting. Patient has been having issues with his left TM, he was sent to ENT and an ear tube was place in the left ear only on 07/17/22. Patient has been approved for 30 treatment of hyperbaric oxygen therapy. Subjective Subjective Today is the 3rd treatment of hyperbaric oxygen therapy.? The patient is scheduled for 30 treatments total. Tolerance of hyperbaric oxygen therapy: Hyperbaric oxygen treatment was administered as per the facility's protocol.? Hyperbaric oxygen therapy was administered at 2.0 BETO in 100% oxygen for 90 minutes without air breaks.? The patient tolerated hyperbaric oxygen well, without complications or complaints. Upon emergence of the hyperbaric chamber, the patient's vital signs remained stable.? He was discharged in good condition.? Pre- and pos-tprocedure glucose measurements are documented elsewhere. Objective Data Objective Data Vital Signs: Vital Signs Temp Pulse Resp BP 97.0 F L 91 18 147/89 H 07/12/22 08:17 07/12/22 08:17 07/10/22 13:36 07/12/22 08:17 Weight: 225 lb Body Mass Index (BMI) 34.2 Lab / Micro Data Labs: Laboratory Results - last 24 hr 07/18/22 08:05: POC Glucose 241 H Exam Physical Exam Const alert, oriented x3 and no apparent distress General Appearance: cooperative HEENT normocephalic HEENT Narrative: Ear tube in left TM patent. Bilateral TM clear. Eyes PERRL Resp normal respiratory effort and clear to auscultation bilaterally Effort and Inspection: able to speak in complete sentences Cardio regular rate and regular rhythm Psych affect normal Charges/Coding Wound Center CF Procedures HBO Supervision: [id number] Hyperbaric Oxygen; supervision Assessment/Plan Assessment/Plan (1) Osteomyelitis of metatarsal: CODE(S): M86.9 - Osteomyelitis, unspecified (2) 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 exposed: CODE(S): L97.522 - 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 exposed (3) Type 2 diabetes mellitus with diabetic polyneuropathy: CODE(S): E11.42 - Type 2 diabetes mellitus with diabetic polyneuropathy PLAN: Plan The patient appears to be tolerating hyperbaric oxygen therapy well, which will be continued as per the patient's medical plan.
[2022-07-18 10:50] LABS: Bedside Glucose 221 mg/dL (74-106)
[2022-07-18 10:59] VITALS: BP 122/68; BP 99/56; PULSE 79; PULSE 99; RESP 18; TEMP 35.6
[2022-07-19 08:05] LABS: Bedside Glucose 211 mg/dL (74-106)
--- NOTE | 2022-07-19 09:57 | HBO.PN.PCM_ITS ---
History of Present Illness Date of Service: 07/19/22 Chief Complaint: Osteomyelitis of the left foot; diabetic foot ulceration History of Wound: Patient is a 51-year-old male who presents to the wound care center for evaluation for hyperbaric oxygen therapy. He has been seeing Dr. 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 His ulcer is not making the progress that it should. He has a Gustafson stage III ulcer on his left foot. He uses a knee scooter. 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 There is interval development of osseous destruction of the head and distal diaphysis of the fourth metatarsal and base of the fourth proximal phalanx. Arterial study from 01/09/22, Right RANJAN - 1.19, Left RANJAN - NC, Left digital- brachial index is 0.67. The left digital-brachial index is mildly diminished. There is evidence of arterial calcification at ankle level on the left. Arterial flow appears normal at ankle level bilaterally, and at digital level on the right. There is evidence of mild arterial occlusive disease at digital level on the left. MRI of left lower extremity from 10/07/19 showed Marrow edema consistent osteomyelitis of the distal phalanges of the fourth and fifth toes. Soft tissue swelling. He has a history of DM Type II, last HgA1c 10.5 on 05/31/22, Kidney transplant one year ago, peripheral vascular disease, atherosclerotic heart disease, AMI, neuropathy, and GERD. He has received cardiac clearance from Dr. Oneill. Chest x-ray from 05/31/22 is normal. Today he denies fever, chills, nausea, vomiting. Patient has been having issues with his left TM, he was sent to ENT and an ear tube was place in the left ear only on 07/17/22. Patient has been approved for 30 treatment of hyperbaric oxygen therapy. Subjective Subjective Today is the 4th treatment of hyperbaric oxygen therapy.? The patient is scheduled for 30 treatments total. Tolerance of hyperbaric oxygen therapy: Hyperbaric oxygen treatment was administered as per the facility's protocol.? Hyperbaric oxygen therapy was administered at 2.0 BETO in 100% oxygen for 90 minutes without air breaks.? The patient tolerated hyperbaric oxygen well, without complications or complaints. Upon emergence of the hyperbaric chamber, the patient's vital signs remained stable.? He was discharged in good condition.? Pre and post procedure glucose measurements are documented elsewhere. Objective Data Objective Data Vital Signs: Vital Signs Temp Pulse Resp BP 96.1 F L 99 18 99/56 L 07/18/22 10:59 07/18/22 10:59 07/18/22 10:59 07/18/22 10:59 Weight: 225 lb Body Mass Index (BMI) 34.2 Lab / Micro Data Labs: Laboratory Results - last 24 hr 07/18/22 10:26: POC Glucose 221 H 07/19/22 07:46: POC Glucose 211 H Exam Physical Exam Const alert, oriented x3 and no apparent distress General Appearance: cooperative HEENT normocephalic HEENT Narrative: Ear tube in left TM patent. Bilateral TM clear. Eyes PERRL Resp normal respiratory effort and clear to auscultation bilaterally Effort and Inspection: able to speak in complete sentences Cardio regular rate and regular rhythm Psych affect normal Assessment/Plan Assessment/Plan (1) Osteomyelitis of metatarsal: CODE(S): M86.9 - Osteomyelitis, unspecified (2) 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 exposed: CODE(S): L97.522 - 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 exposed (3) Type 2 diabetes mellitus with diabetic polyneuropathy: CODE(S): E11.42 - Type 2 diabetes mellitus with diabetic polyneuropathy PLAN: Plan The patient appears to be tolerating hyperbaric oxygen therapy well, which will be continued as per the patient's medical plan.
[2022-07-19 10:18] VITALS: BP 120/77; PULSE 94; TEMP 36.1; BMI 34.2
[2022-07-19 10:20] LABS: Bedside Glucose 188 mg/dL (74-106)
--- NOTE | 2022-07-19 10:37 | PCM.WC.PN ---
History of Present Illness Date of Service: 07/19/22 Chief Complaint: Osteomyelitis of the left foot; diabetic foot ulceration History of Wound: Patient is a 51-year-old male who presents to the wound care center for evaluation for hyperbaric oxygen therapy. He has been seeing Dr. 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 His ulcer is not making the progress that it should. He has a Gustafson stage III ulcer on his left foot. He uses a knee scooter. 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 There is interval development of osseous destruction of the head and distal diaphysis of the fourth metatarsal and base of the fourth proximal phalanx. Arterial study from 01/09/22, Right RANJAN - 1.19, Left RANJAN - NC, Left digital-brachial index is 0.67. The left digital-brachial index is mildly diminished. There is evidence of arterial calcification at ankle level on the left. Arterial flow appears normal at ankle level bilaterally, and at digital level on the right. There is evidence of mild arterial occlusive disease at digital level on the left. MRI of left lower extremity from 10/07/19 showed Marrow edema consistent osteomyelitis of the distal phalanges of the fourth and fifth toes. Soft tissue swelling. He has a history of DM Type II, last HgA1c 10.5 on 05/31/22, Kidney transplant one year ago, peripheral vascular disease, atherosclerotic heart disease, AMI, neuropathy, and GERD. He has received cardiac clearance from Dr. Oneill. Chest x-ray from 05/31/22 is normal. Today he denies fever, chills, nausea, vomiting. Patient has been having issues with his left TM, he was sent to ENT and an ear tube was place in the left ear only on 07/17/22. Patient has been approved for 30 treatment of hyperbaric oxygen therapy. 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 States has started HBO dives again post tube placement.? He has been changing the outer dressings to the left foot as needed.? He denies any constitutional symptoms.?He continues to deny any pain today.?He has no further complaints today. Objective Data Objective Data Vital Signs: Vital Signs Temp Pulse Resp BP 97.0 F L 94 18 120/77 07/19/22 10:18 07/19/22 10:18 07/18/22 10:59 07/19/22 10:18 Weight: 102.058 kg Body Mass Index (BMI) 34.2 Lab / Micro Data Labs: Laboratory Results - last 24 hr 07/18/22 10:26: POC Glucose 221 H 07/19/22 07:46: POC Glucose 211 H 07/19/22 09:55: POC Glucose 188 H Physical Exam Narrative Patient is alert oriented to person, place and time.? Patient ambulates with assistance of a knee scooter on the left.? And diabetic shoe on the right. Vascular: There are atrophic changes of the skin such as thinning shiny taut appearance absent digital hair growth.? Pulses are grossly palpable 2 out of 4 dorsalis pedis and posterior tibial bilateral feet.? Mild +1 pitting edema to bilateral lower extremity. Neurologic: Light touch protective sensation completely absent to bilateral lower extremity. Dermatologic: Healed right hallux ulceration.? Digital wounds to left foot healed at this time.?Status post partial fifth ray amputation left foot with healthy granular wound at the distal aspect of the amputation site.?Lateral fourth digit demonstrates healed blister with No signs of infection. Musculoskeletal: No gross wound forming deformity.?Muscular strength full to bilateral lower extremity compartments.? No crepitus or pain noted to the wound or periwound areas. Const alert, oriented x3 and no apparent distress General Appearance: cooperative HEENT normocephalic Eyes General Eye: normal appearance of both eyes Neck General: normal visual inspection Lymph Lymphatic: no lymphadenopathy noted and no lymphedema noted Resp normal respiratory effort Cardio regular rate and regular rhythm Extremity normal capillary refill, no joint enlargement, no calf tenderness and no pedal edema Skin no rashes or lesions noted, skin turgor normal and no jaundice Wound Narrative: Left foot: Partial fifth ray resection noted.? Wound site measures 3.5 cm x 2.7 cm x 0.1 cm.? There is healthy appearing skin about the ulcerative rim.?There is no erythema, no expressible purulent drainage, no malodor, no other localized signs of infection.? Wound demonstrates healthy granular layer with adequate tissue bleeding. Neuro oriented x3 and moves all extremities Debridement Note Debridement Note Wound debrided: Fifth metatarsal stump Laterality: Left Wound Grade/Stage: Gustafson stage III Type of Debridement: Excisional debridement Anesthesia Used: 5% Lidocaine Gel Depth: Down to and including healthy tissue and in the subcutaneous layer Percentage of wound debrided: 100 Instrument Used: 3mm curette Tissue Removed: Fibrous, devitalized subcutaneous, biofilm, slough Severity: Fat Layer Exposed Amount of bleeding with debridement: Mild Bleeding Controlled with: Compression and gauze Patient tolerated procedure: Patient tolerated procedure well Post-Debridement Measurements and Additional Note: Post-Debridement Measurements/Treatment - Nurse 1 - General Ulcer Assessment Start: 07/10/22 13:36 Freq: Status: Active Protocol: HOLLY Activity Type Activity Date Activity User E-sign Co-sign Detail Recorded Client Recorded Date Recorded By Document 07/12/22 08:17 JOE [id number] 07/12/22 08:19 JOE Document 07/19/22 10:18 JOE [id number] 07/19/22 10:19 JOE 07/12/22 07/19/22 08:17 10:18 - Today's Visit Information Type of service Follow-up Visit Follow-up Visit (Physician/MILLER HELPER (Physician/MILLER HELPER ) ) Arrival Mode Walker Ambulatory Patient Identification Verified (Name & Yes Yes ) Height and Weight Body Mass Index (BMI) 34.2 34.2 BMI Classification Obese Obese Vital Signs Temperature (97.8 F-99.1 F) 97.0 F L 97.0 F L Temperature Source Temporal Temporal Pulse Rate (60-100) 91 94 Pulse Location Monitor Monitor Blood Pressure (90/60-120/80) 147/89 H 120/77 Blood Pressure Mean (mm Hg) 108 91 Source Monitor Monitor Position Semi-Fowlers Sitting Blood Pressure Location Left Arm Right Arm History Since Last Visit- (Skip if this is Patient's initial visit) Have you changed medications since your No No last visit? Any new allergies or adverse reactions No No Had a fall/change in ADL's that may No No increase risk of falls Signs or symptoms of abuse and/or No No neglect since last visit Have you been in the hospital since your No No last visit? Has dressing in place as prescribed Yes Yes Has compression in place as prescribed Yes Yes Has offloadiing in place as prescribed N/A N/A Experienced any changes in pain level or No No management Left Footwear Regular Shoe Right Footwear Regular Shoe Pain Scale: 0-10 Numeric Is Patient Pain Free? Yes Yes WC - Nurse 1 - General Ulcer Measurement Start: 07/10/22 13:36 Freq: Status: Active Protocol: Activity Type Activity Date Activity User E-sign Co-sign Detail Recorded Client Recorded Date Recorded By Document 07/12/22 08:17 KR [id number] 07/12/22 08:19 KR Document 07/19/22 10:18 KR [id number] 07/19/22 10:19 KR 07/12/22 07/19/22 08:17 10:18 Wound Center Nurse 1 #10 LL FOOT -Current Size (cm) - Length 3 3.5 -Current Size (cm) - Width 3 3 -Current Size (cm) - Depth 0.1 0.1 -Total Square Cm 9 10.5 -Exudate Amt Medium Large -Exudate Type Serosanguineous Serosanguineous -Wound Margin Distinct, Distinct, Outline Outline Attached Attached -Granulation Amt Large (67-100%) Medium (34-66%) -Granulation Quality Red [place] -Necrosis Amt None Present (0 Medium (34-66%) %) -Necrotic Tissue Type Adherent Slough -Texture (Dunia-wound Skin Appearance) Assessed, Assessed, Scarring Scarring -Moisture ([place]ia-wound Skin Appearance) No Abnormality, No Abnormality, Assessed Assessed -Color ([place]ia-wound Skin Appearance) No Abnormality, No Abnormality, Assessed Assessed -Temperature ([place]-wound Skin No Abnormality No Abnormality Appearance) (Pt Warm) (Pt Warm) -Tenderness on Palpation ([place]-wound No No Skin Appearance) -Ulcer Cleansing Rinsed/ Soap and Water Irrigated with Saline -Foul Odor after Cleansing No No -Anesthetic Used 5% Lidocaine 5% Lidocaine Gel Gel Left Calf (cm) 39 Left Ankle (cm) 23.5 WC - Nurse 2 - General Ulcer CM Notes Start: 07/10/22 13:36 Freq: Status: Active Protocol: Activity Type Activity Date Activity User E-sign Co-sign Detail Recorded Client Recorded Date Recorded By Document 07/12/22 11:54 PL [id number] 07/12/22 11:56 PL 07/12/22 11:54 Wound Center Nurse 2 #10 LL FOOT -Time 08:40 -Correct Patient Yes -Correct Side, Site, Position Yes -Correct Procedure Yes -Procedure Performed Yes -Type of Procedure Debridement -Clinical Debridement Subcutaneous -Tissue Removed Subcutaneous -Post Debridement (cm) - Length 3.9 -Post Debridement (cm) - Width 2.8 -Post Debridement (cm) - Depth 0.1 -Total Square (Post) (cm) 10.92 -Area of Debridement (cm) - Length 3.9 -Area of Debridement (cm) - Width 2.8 -Total Square (Area) (cm) 10.92 -Tunneling No -Undermining/Tunneling No -Circular Undermining No -Wound/Ulcer Outcome Not Healed -Ulcer Cleansing Rinsed/ Irrigated with Saline -Foul Odor after Cleansing No -Bioengineered Tissue Yes -Type of Bioengineered Tissue Epifix Mesh -Expiration Date 04/09/27 -Product Lot Number [id number] -Percent Used 100 -Bleeding Controlled with Pressure -Treatment Response Procedure Tolerated Well -Debridement - Subq, 1st 20sq cm No -Apply Skin Sub - 1st 25 sq cm - Feet 1 -Epifix Mesh (per sq cm) 11 Pain Scale: 0-10 Numeric Is Patient Pain Free? Yes - Nurse 3 - General Ulcer D/C NN Start: 07/10/22 13:36 Freq: Status: Active Protocol: Activity Type Activity Date Activity User E-sign Co-sign Detail Recorded Client Recorded Date Recorded By Document 07/12/22 09:02 [id number] 07/12/22 09:03 JOE 07/12/22 09:02 Wound Care Nurse 3 #10 FOOT -Ulcer Cleansing Rinsed/ Irrigated with Saline -Other Dressing ABD -Primary Dressing Covered/Secured with Dry Gauze,Dry Gauze & Roll Gauze,Secured with Tape Pain Scale: 0-10 Numeric Is Patient Pain Free? 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: CODE(S): Z89.422 - Acquired absence of other left toe(s) (3) Type 2 diabetes mellitus with diabetic polyneuropathy: CODE(S): E11.42 - Type 2 diabetes mellitus with diabetic polyneuropathy (4) Diabetic foot ulcer: CODE(S): E11.621 - Type 2 diabetes mellitus with foot ulcer; L97.509 - Non-pressure chronic ulcer of other part of unspecified foot with unspecified severity QUALIFIERS: Diabetes mellitus type: type 2 Laterality: left Non-pressure ulcer stage: with necrosis of bone PLAN: Plan Patient seen and evaluated in wound care center He is?s/p I&D gas gangrene left foot with partial fifth ray amputation and excision of chronic diabetic ulceration.? POV #18 (DOS: 03/24/2022) POD #116 Left lower extremity: No edema noted. Fifth digit amputation noted. Patient has a hemoglobin A1c of 10.5%, this has remained unchanged from his last A1c in March.? 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 Infection: During surgical intervention 03/24/22 the tissues demonstrated normal integrity and were not easily dissectible through fascial planes with a finger as seen with typical necrotizing fasciitis cases.?He did however have soft tissue crepitus with foul odor consistent with a gas gangrene, confirmed by radiograph on 03/24/2022.? 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 WBC 16.3 with left shift prior to surgical intervention.?WBC currently within normal limits.? He is finished IV antibiotic course and PICC line removed. Sx Cultures: Culture of wound/ulceration &?Bone culture fifth toe/fifth metatarsal demonstrates staph epi, Enterococcus faecalis, Streptococcus mitis/oralis, Turicella otitidis, Enterococcus casseliflavius, Peptostreptococcus prevotil, Prevotella bivia.? Cultures post surgical clearance demonstrate no growth. Blood cultures: Demonstrated no growth Wound: Wound underwent debridement as noted in clinical panel above today. Healthy granular tissue noted with no localized signs of infection.? No purulent drainage noted, no malodor noted.? Wound is continuing to granulate in well. He underwent debridement of the necrotic 4th metatarsal head on 05/24/22.? Wound measures 3.5 cm x 2.7 cm x 0.1 cm.? He has resumed hyperbaric dives following tube placement. He was approved for epi fix graft.? Epi fix mesh graft #5 applied to the wound bed today. He is not to get the dressing wet and to leave the dressings clean, dry, and intact to the left foot.? No expressible purulent drainage noted.?Radiographs were ordered of the left foot 05/31/22. Radiographs demonstrate: Amputation of the fifth metatarsal at the level of the mid diaphysis.?There is interval development of osseous destruction of the base of the fourth proximal phalanx and distal fourth metatarsal suspicious of osteomyelitis.Further debridement was performed on 05/31/22 removing nonviable tissue/bone in the base of his proximal phalanx of the fourth digit.? There is continued improvement in the appearance of his wound today with continued reduction in size. He has finished oral antibiotic course. I will continue to monitor him for any progressing signs of infection.?He is aware that further surgical intervention may be required pending his progress. Dressings: Epi fix mesh graft, Adaptic touch and anchored with Steri-Strips with dry sterile dressing.? He was instructed to keep his dressings clean, dry, and intact to the left foot.?Continue to elevate the left lower extremity at all times of rest. Patient is to remain nonweightbearing to the left lower extremity with assistance of a knee scooter Visiting nursing to assist in dressing changes to the left foot. He will return to the wound care center in 1 week for continued localized wound care and close monitoring. Note: [email or web address] speech recognition officer lieutenant software was used to create portions of this document. Sound-alike and misspelled words, as well as other officer lieutenant errors may be contained in the documentation.
[2022-07-19 11:52] VITALS: BP 120/77; BP 99/47; PULSE 80; PULSE 94; RESP 15; RESP 16; TEMP 35.7
[2022-07-20 08:25] LABS: Bedside Glucose 155 mg/dL (74-106)
[2022-07-20 09:16] VITALS: BP 103/59; BP 138/78; PULSE 77; PULSE 91; RESP 16; RESP 18; TEMP 36.2
[2022-07-20 10:35] LABS: Bedside Glucose 136 mg/dL (74-106)
--- NOTE | 2022-07-20 14:41 | HBO.PN.PCM_ITS ---
History of Present Illness Date of Service: 07/20/22 Chief Complaint: Osteomyelitis of the left foot; diabetic foot ulceration History of Wound: Patient is a 51-year-old male who presents to the wound care center for evaluation for hyperbaric oxygen therapy. He has been seeing Dr. 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 His ulcer is not making the progress that it should. He has a Gustafson stage III ulcer on his left foot. He uses a knee scooter. 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 There is interval development of osseous destruction of the head and distal diaphysis of the fourth metatarsal and base of the fourth proximal phalanx. Arterial study from 01/09/22, Right RANJAN - 1.19, Left RANJAN - NC, Left digital- brachial index is 0.67. The left digital-brachial index is mildly diminished. There is evidence of arterial calcification at ankle level on the left. Arterial flow appears normal at ankle level bilaterally, and at digital level on the right. There is evidence of mild arterial occlusive disease at digital level on the left. MRI of left lower extremity from 10/07/19 showed Marrow edema consistent osteomyelitis of the distal phalanges of the fourth and fifth toes. Soft tissue swelling. He has a history of DM Type II, last HgA1c 10.5 on 05/31/22, Kidney transplant one year ago, peripheral vascular disease, atherosclerotic heart disease, AMI, neuropathy, and GERD. He has received cardiac clearance from Dr. Oneill. Chest x-ray from 05/31/22 is normal. Today he denies fever, chills, nausea, vomiting. Patient has been having issues with his left TM, he was sent to ENT and an ear tube was place in the left ear only on 07/17/22. Patient has been approved for 30 treatment of hyperbaric oxygen therapy. Progress of Wound: Progress: Today is the 5th treatment of hyperbaric oxygen therapy. The patient is scheduled for 30 treatments total. Tolerance of hyperbaric oxygen therapy: Hyperbaric oxygen treatment was provided as per the facility's protocol at 2.0 BETO in 100% oxygen for 90 minutes without air breaks. The patient tolerated hyperbaric oxygen well, without complications or complaints. Upon emergence of the hyperbaric chamber, the patient's vital signs remained stable. Objective Data Objective Data Vital Signs: Vital Signs Temp Pulse Resp BP 97.1 F L 91 18 103/59 L 07/20/22 09:16 07/20/22 09:16 07/20/22 09:16 07/20/22 09:16 Weight: 102.058 kg Body Mass Index (BMI) 34.2 Lab / Micro Data Labs: Laboratory Results - last 24 hr 07/20/22 08:06: POC Glucose 155 H 07/20/22 10:13: POC Glucose 136 H Exam Physical Exam Const alert, oriented x3 and no apparent distress HEENT HEENT Narrative: Tympanostomy tube present and patent left TM Psych mental status grossly normal, thought process normal, cooperative, affect normal and speech normal Nursing Assessment and Debridement Post-Debridement Measurements and Additional Note: Post-Debridement Measurements/Treatment WC - Nurse 1 - General Ulcer Assessment Start: 07/10/22 13:36 Freq: Status: Active Protocol: HOLLY Activity Type Activity Date Activity User E-sign Co-sign Detail Recorded Client Recorded Date Recorded By Document 07/19/22 10:18 JOE [id number] 07/19/22 10:19 JOE 07/19/22 10:18 WC - Today's Visit Information Type of service Follow-up Visit (Physician/HOME HEALTH TRAVEL OT ) Arrival Mode Ambulatory Patient Identification Verified (Name & Yes ) Height and Weight Body Mass Index (BMI) 34.2 BMI Classification Obese Vital Signs Temperature (97.8 F-99.1 F) 97.0 F L Temperature Source Temporal Pulse Rate (60-100) 94 Pulse Location Monitor Blood Pressure (90/60-120/80) 120/77 Blood Pressure Mean (mm Hg) 91 Source Monitor Position Sitting Blood Pressure Location Right Arm History Since Last Visit- (Skip if this is Patient's initial visit) Have you changed medications since your No last visit? Any new allergies or adverse reactions No Had a fall/change in ADL's that may No increase risk of falls Signs or symptoms of abuse and/or No neglect since last visit Have you been in the hospital since your No last visit? Has dressing in place as prescribed Yes Has compression in place as prescribed Yes Has offloadiing in place as prescribed N/A Experienced any changes in pain level or No management Left Footwear Regular Shoe Right Footwear Regular Shoe Pain Scale: 0-10 Numeric Is Patient Pain Free? Yes - Nurse 1 - General Ulcer Measurement Start: 07/10/22 13:36 Freq: Status: Active Protocol: Activity Type Activity Date Activity User E-sign Co-sign Detail Recorded Client Recorded Date Recorded By Document 07/19/22 10:18 JOE [id number] 07/19/22 10:19 JOE 07/19/22 10:18 Wound Center Nurse 1 #10 LL FOOT -Current Size (cm) - Length 3.5 -Current Size (cm) - Width 3 -Current Size (cm) - Depth 0.1 -Total Square Cm 10.5 -Exudate Amt Large -Exudate Type Serosanguineous -Wound Margin Distinct, Outline Attached -Granulation Amt Medium (34-66%) -Granulation Quality [place] -Necrosis Amt Medium (34-66%) -Necrotic Tissue Type Adherent Slough -Texture ([place]-wound Skin Appearance) Assessed, Scarring -Moisture ([place]-wound Skin Appearance) No Abnormality, Assessed -Color ([place]-wound Skin Appearance) No Abnormality, Assessed -Temperature ([place]-wound Skin No Abnormality Appearance) (Pt Warm) -Tenderness on Palpation ([place]-wound No Skin Appearance) -Ulcer Cleansing Soap and Water -Foul Odor after Cleansing No -Anesthetic Used 5% Lidocaine Gel Left Calf (cm) 39 Left Ankle (cm) 23.5 WC - Nurse 2 - General Ulcer CM Notes Start: 07/10/22 13:36 Freq: Status: Active Protocol: Activity Type Activity Date Activity User E-sign Co-sign Detail Recorded Client Recorded Date Recorded By Document 07/19/22 12:13 JAZZ [id number] 07/19/22 12:16 PL 07/19/22 12:13 Wound Center Nurse 2 #10 LL FOOT -Time 10:50 -Correct Patient Yes -Correct Side, Site, Position Yes -Correct Procedure Yes -Procedure Performed Yes -Type of Procedure Debridement -Clinical Debridement Subcutaneous -Tissue Removed Subcutaneous -Post Debridement (cm) - Length 3.5 -Post Debridement (cm) - Width 2.7 -Post Debridement (cm) - Depth 0.1 -Total Square (Post) (cm) 9.45 -Area of Debridement (cm) - Length 3.5 -Area of Debridement (cm) - Width 2.7 -Total Square (Area) (cm) 9.45 -Tunneling No -Undermining/Tunneling No -Circular Undermining No -Wound/Ulcer Outcome Not Healed -Ulcer Cleansing Rinsed/ Irrigated with Saline -Foul Odor after Cleansing No -Bioengineered Tissue Yes -Type of Bioengineered Tissue Epifix Mesh -Expiration Date 04/09/27 -Product Lot Number [id number] -Percent Used 100 -Bleeding Controlled with Pressure -Treatment Response Procedure Tolerated Well -Debridement - Subq, 1st 20sq cm No -Apply Skin Sub - 1st 25 sq cm - Feet 1 -Epifix Mesh (per sq cm) 11 Pain Scale: 0-10 Numeric Is Patient Pain Free? Yes WC - Nurse 3 - General Ulcer D/C NN Start: 07/10/22 13:36 Freq: Status: Active Protocol: Activity Type Activity Date Activity User E-sign Co-sign Detail Recorded Client Recorded Date Recorded By Document 07/19/22 11:48 KELLIE [id number] 07/19/22 11:51 KELLIE 07/19/22 11:48 Wound Care Nurse 3 #10 LL FOOT -Ulcer Cleansing Rinsed/ Irrigated with Saline -Foul Odor after Cleansing No -Negative Pressure Wound Therapy N/A -Other Dressing ABD -Primary Dressing Covered/Secured with Dry Gauze & Roll Gauze, Secured with Tape Left -Compression Wrap Kirill Wrap Pain Scale: 0-10 Numeric Is Patient Pain Free? No WC - Visit Discharge Discharge Condition Stable Ambulatory Status Ambulatory, Walker Transportation Private Auto Medication Reconcilliation completed & Yes provided to patient/care provider Clinical Summary of Care Provided Yes Assessment/Plan Assessment/Plan (1) Osteomyelitis of metatarsal: CODE(S): M86.9 - Osteomyelitis, unspecified (2) 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 exposed: CODE(S): L97.522 - 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 exposed (3) Type 2 diabetes mellitus with diabetic polyneuropathy: CODE(S): E11.42 - Type 2 diabetes mellitus with diabetic polyneuropathy PLAN: Plan The patient appears to be tolerating hyperbaric oxygen therapy well, which will be continued as per the patient's medical plan.
[2022-07-23 08:20] LABS: Bedside Glucose 241 mg/dL (74-106)
--- NOTE | 2022-07-23 08:22 | HBO.PN.PCM_ITS ---
History of Present Illness Date of Service: 07/23/22 Chief Complaint: Osteomyelitis of the left foot; diabetic foot ulceration History of Wound: Patient is a 51-year-old male who presents to the wound care center for evaluation for hyperbaric oxygen therapy. He has been seeing Dr. 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 His ulcer is not making the progress that it should. He has a Gustafson stage III ulcer on his left foot. He uses a knee scooter. 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 There is interval development of osseous destruction of the head and distal diaphysis of the fourth metatarsal and base of the fourth proximal phalanx. Arterial study from 01/09/22, Right RANJAN - 1.19, Left RANJAN - NC, Left digital- brachial index is 0.67. The left digital-brachial index is mildly diminished. There is evidence of arterial calcification at ankle level on the left. Arterial flow appears normal at ankle level bilaterally, and at digital level on the right. There is evidence of mild arterial occlusive disease at digital level on the left. MRI of left lower extremity from 10/07/19 showed Marrow edema consistent osteomyelitis of the distal phalanges of the fourth and fifth toes. Soft tissue swelling. He has a history of DM Type II, last HgA1c 10.5 on 05/31/22, Kidney transplant one year ago, peripheral vascular disease, atherosclerotic heart disease, AMI, neuropathy, and GERD. He has received cardiac clearance from Dr. Oneill. Chest x-ray from 05/31/22 is normal. Today he denies fever, chills, nausea, vomiting. Patient has been having issues with his left TM, he was sent to ENT and an ear tube was place in the left ear only on 07/17/22. Patient has been approved for 30 treatment of hyperbaric oxygen therapy. Progress of Wound: Progress: Today is the 6th treatment of hyperbaric oxygen therapy. The patient is scheduled for 30 treatments total. Tolerance of hyperbaric oxygen therapy: Hyperbaric oxygen treatment was provided as per the facility's protocol at 2.0 BETO in 100% oxygen for 90 minutes without air breaks. The patient tolerated hyperbaric oxygen well, without complications or complaints. Upon emergence of the hyperbaric chamber, the patient's vital signs remained stable. Objective Data Objective Data Vital Signs: Vital Signs Temp Pulse Resp BP 97.1 F L 91 18 103/59 L 07/20/22 09:16 07/20/22 09:16 07/20/22 09:16 07/20/22 09:16 Weight: 225 lb Body Mass Index (BMI) 34.2 Lab / Micro Data Labs: Laboratory Results - last 24 hr 07/23/22 08:02: POC Glucose 241 H Exam Physical Exam Const alert, oriented x3 and no apparent distress HEENT HEENT Narrative: Tympanostomy tube present and patent left TM Psych mental status grossly normal, thought process normal, cooperative, affect normal and speech normal Assessment/Plan Assessment/Plan (1) Osteomyelitis of metatarsal: CODE(S): M86.9 - Osteomyelitis, unspecified (2) 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 exposed: CODE(S): L97.522 - 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 exposed (3) Type 2 diabetes mellitus with diabetic polyneuropathy: CODE(S): E11.42 - Type 2 diabetes mellitus with diabetic polyneuropathy PLAN: Plan The patient appears to be tolerating hyperbaric oxygen therapy well, which will be continued as per the patient's medical plan.
[2022-07-23 10:35] LABS: Bedside Glucose 179 mg/dL (74-106)
[2022-07-23 11:01] VITALS: BP 100/56; BP 122/70; PULSE 78; PULSE 91; RESP 16; RESP 18; TEMP 36.1
--- NOTE | 2022-07-24 10:23 | WC ---
Pt. b/s to high to dive. Aureliano informed and tx held.
[2022-07-25 08:00] LABS: Bedside Glucose 253 mg/dL (74-106)
[2022-07-25 08:00] LABS: Bedside Glucose 258 mg/dL (74-106)
[2022-07-25 08:05] LABS: Bedside Glucose 172 mg/dL (74-106)
--- NOTE | 2022-07-25 08:13 | HBO.PN.PCM_ITS ---
History of Present Illness Date of Service: 07/25/22 Chief Complaint: Osteomyelitis of the left foot; diabetic foot ulceration History of Wound: Patient is a 51-year-old male who presents to the wound care center for evaluation for hyperbaric oxygen therapy. He has been seeing Dr. 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 His ulcer is not making the progress that it should. He has a Gustafson stage III ulcer on his left foot. He uses a knee scooter. 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 There is interval development of osseous destruction of the head and distal diaphysis of the fourth metatarsal and base of the fourth proximal phalanx. Arterial study from 01/09/22, Right RANJAN - 1.19, Left RANJAN - NC, Left digital- brachial index is 0.67. The left digital-brachial index is mildly diminished. There is evidence of arterial calcification at ankle level on the left. Arterial flow appears normal at ankle level bilaterally, and at digital level on the right. There is evidence of mild arterial occlusive disease at digital level on the left. MRI of left lower extremity from 10/07/19 showed Marrow edema consistent osteomyelitis of the distal phalanges of the fourth and fifth toes. Soft tissue swelling. He has a history of DM Type II, last HgA1c 10.5 on 05/31/22, Kidney transplant one year ago, peripheral vascular disease, atherosclerotic heart disease, AMI, neuropathy, and GERD. He has received cardiac clearance from Dr. Oneill. Chest x-ray from 05/31/22 is normal. Today he denies fever, chills, nausea, vomiting. Patient has been having issues with his left TM, he was sent to ENT and an ear tube was place in the left ear only on 07/17/22. Patient has been approved for 30 treatment of hyperbaric oxygen therapy. Progress of Wound: Progress: Today is the 7th treatment of hyperbaric oxygen therapy. The patient is scheduled for 30 treatments total. Tolerance of hyperbaric oxygen therapy: Hyperbaric oxygen treatment was provided as per the facility's protocol at 2.0 BETO in 100% oxygen for 90 minutes without air breaks. The patient tolerated hyperbaric oxygen well, without complications or complaints. Upon emergence of the hyperbaric chamber, the patient's vital signs remained stable. Objective Data Objective Data Vital Signs: Vital Signs Temp Pulse Resp BP 97.0 F L 91 16 100/56 L 07/23/22 11:01 07/23/22 11:01 07/23/22 11:01 07/23/22 11:01 Weight: 225 lb Body Mass Index (BMI) 34.2 Lab / Micro Data Labs: Laboratory Results - last 24 hr 07/24/22 08:01: POC Glucose 258 H 07/24/22 08:14: POC Glucose 253 H 07/25/22 07:46: POC Glucose 172 H Exam Physical Exam Const alert, oriented x3 and no apparent distress HEENT HEENT Narrative: Tympanostomy tube present and patent left TM Psych mental status grossly normal, thought process normal, cooperative, affect normal and speech normal Assessment/Plan Assessment/Plan (1) Osteomyelitis of metatarsal: CODE(S): M86.9 - Osteomyelitis, unspecified (2) 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 exposed: CODE(S): L97.522 - 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 exposed (3) Type 2 diabetes mellitus with diabetic polyneuropathy: CODE(S): E11.42 - Type 2 diabetes mellitus with diabetic polyneuropathy PLAN: Plan The patient appears to be tolerating hyperbaric oxygen therapy well, which will be continued as per the patient's medical plan.
[2022-07-25 10:16] LABS: Bedside Glucose 199 mg/dL (74-106)
[2022-07-25 10:56] VITALS: BP 109/67; BP 130/78; PULSE 74; PULSE 89; RESP 16; RESP 18; TEMP 36.1
[2022-07-26 08:20] LABS: Bedside Glucose 188 mg/dL (74-106)
--- NOTE | 2022-07-26 10:17 | PN.PCM_ITS ---
History of Present Illness Date of Service: 07/26/22 Chief Complaint: Osteomyelitis of the left foot; diabetic foot ulceration History of Wound: Patient is a 51-year-old male who presents to the wound care center for evaluation for hyperbaric oxygen therapy. He has been seeing Dr. 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 His ulcer is not making the progress that it should. He has a Gustafson stage III ulcer on his left foot. He uses a knee scooter. 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 There is interval development of osseous destruction of the head and distal diaphysis of the fourth metatarsal and base of the fourth proximal phalanx. Arterial study from 01/09/22, Right RANJAN - 1.19, Left RANJAN - NC, Left digital- brachial index is 0.67. The left digital-brachial index is mildly diminished. There is evidence of arterial calcification at ankle level on the left. Arterial flow appears normal at ankle level bilaterally, and at digital level on the right. There is evidence of mild arterial occlusive disease at digital level on the left. MRI of left lower extremity from 10/07/19 showed Marrow edema consistent osteomyelitis of the distal phalanges of the fourth and fifth toes. Soft tissue swelling. He has a history of DM Type II, last HgA1c 10.5 on 05/31/22, Kidney transplant one year ago, peripheral vascular disease, atherosclerotic heart disease, AMI, neuropathy, and GERD. He has received cardiac clearance from Dr. Oneill. Chest x-ray from 05/31/22 is normal. Today he denies fever, chills, nausea, vomiting. Patient has been having issues with his left TM, he was sent to ENT and an ear tube was place in the left ear only on 07/17/22. Patient has been approved for 30 treatment of hyperbaric oxygen therapy. Progress of Wound: Progress: Today is the 7th treatment of hyperbaric oxygen therapy. The patient is scheduled for 30 treatments total. Tolerance of hyperbaric oxygen therapy: Hyperbaric oxygen treatment was provided as per the facility's protocol at 2.0 BETO in 100% oxygen for 90 minutes without air breaks. The patient tolerated hyperbaric oxygen well, without complications or complaints. Upon emergence of the hyperbaric chamber, the patient's vital signs remained stable. 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 He denies any constitutional symptoms.?He continues to deny any pain today.?He has no further complaints today. Objective Data Objective Data Vital Signs: Vital Signs Temp Pulse Resp BP 96.9 F L 89 16 109/67 07/25/22 10:56 07/25/22 10:56 07/25/22 10:56 07/25/22 10:56 Weight: 102.058 kg Body Mass Index (BMI) 34.2 Lab / Micro Data Labs: Laboratory Results - last 24 hr 07/26/22 08:02: POC Glucose 188 H Physical Exam Narrative Patient is alert oriented to person, place and time.? Patient ambulates with assistance of a knee scooter on the left.? And diabetic shoe on the right. Vascular: There are atrophic changes of the skin such as thinning shiny taut appearance absent digital hair growth.? Pulses are grossly palpable 2 out of 4 dorsalis pedis and posterior tibial bilateral feet.? Mild +1 pitting edema to bilateral lower extremity. Neurologic: Light touch protective sensation completely absent to bilateral lower extremity. Dermatologic: Healed right hallux ulceration.? Digital wounds to left foot healed at this time.?Status post partial fifth ray amputation left foot with healthy granular wound at the distal aspect of the amputation site.?Lateral fourth digit demonstrates healed blister with No signs of infection. Musculoskeletal: No gross wound forming deformity.?Muscular strength full to bilateral lower extremity compartments.? No crepitus or pain noted to the wound or periwound areas. Const alert, oriented x3 and no apparent distress General Appearance: cooperative HEENT normocephalic Eyes General Eye: normal appearance of both eyes Neck General: normal visual inspection Lymph Lymphatic: no lymphadenopathy noted and no lymphedema noted Resp normal respiratory effort Cardio regular rate and regular rhythm Extremity normal capillary refill, no joint enlargement, no calf tenderness and no pedal edema Skin no rashes or lesions noted, skin turgor normal and no jaundice Wound Narrative: Left foot: Partial fifth ray resection noted.? Wound site measures 3.2 cm x 2.2 cm x 0.1 cm.? There is healthy appearing skin about the ulcerative rim.?There is no erythema, no expressible purulent drainage, no malodor, no other localized signs of infection.? Wound demonstrates healthy granular layer with adequate tissue bleeding. Neuro oriented x3 and moves all extremities Debridement Note Debridement Note Wound debrided: Fifth metatarsal stump Laterality: Left Wound Grade/Stage: Gustafson stage III Type of Debridement: Excisional debridement Anesthesia Used: 5% Lidocaine Gel Depth: Down to and including healthy tissue and in the subcutaneous layer Percentage of wound debrided: 100 Instrument Used: 3mm curette Tissue Removed: Fibrous, devitalized subcutaneous, biofilm, slough Severity: Fat Layer Exposed Amount of bleeding with debridement: Mild Bleeding Controlled with: Compression and gauze Patient tolerated procedure: Patient tolerated procedure well Post-Debridement Measurements and Additional Note: Post-Debridement Measurements/Treatment OSWALD - Nurse 1 - General Ulcer Assessment Start: 07/10/22 13:36 Freq: Status: Active Protocol: HOLLY Activity Type Activity Date Activity User E-sign Co-sign Detail Recorded Client Recorded Date Recorded By Document 07/12/22 08:17 JOE [id number] 07/12/22 08:19 KR Document 07/19/22 10:18 JOE [id number] 07/19/22 10:19 KR 07/12/22 07/19/22 08:17 10:18 - Today's Visit Information Type of service Follow-up Visit Follow-up Visit (Physician/BENCH LAY OUT TECHNICIAN (Physician/BENCH LAY OUT TECHNICIAN ) ) Arrival Mode Walker Ambulatory Patient Identification Verified (Name & Yes Yes ) Height and Weight Body Mass Index (BMI) 34.2 34.2 BMI Classification Obese Obese Vital Signs Temperature (97.8 F-99.1 F) 97.0 F L 97.0 F L Temperature Source Temporal Temporal Pulse Rate (60-100) 91 94 Pulse Location Monitor Monitor Blood Pressure (90/60-120/80) 147/89 H 120/77 Blood Pressure Mean (mm Hg) 108 91 Source Monitor Monitor Position Semi-Fowlers Sitting Blood Pressure Location Left Arm Right Arm History Since Last Visit- (Skip if this is Patient's initial visit) Have you changed medications since your No No last visit? Any new allergies or adverse reactions No No Had a fall/change in ADL's that may No No increase risk of falls Signs or symptoms of abuse and/or No No neglect since last visit Have you been in the hospital since your No No last visit? Has dressing in place as prescribed Yes Yes Has compression in place as prescribed Yes Yes Has offloadiing in place as prescribed N/A N/A Experienced any changes in pain level or No No management Left Footwear Regular Shoe Right Footwear Regular Shoe Pain Scale: 0-10 Numeric Is Patient Pain Free? Yes Yes - Nurse 1 - General Ulcer Measurement Start: 07/10/22 13:36 Freq: Status: Active Protocol: Activity Type Activity Date Activity User E-sign Co-sign Detail Recorded Client Recorded Date Recorded By Document 07/12/22 08:17 JOE [id number] 07/12/22 08:19 KR Document 07/19/22 10:18 KR [id number] 07/19/22 10:19 KR 07/12/22 07/19/22 08:17 10:18 Wound Center Nurse 1 #10 LL FOOT -Current Size (cm) - Length 3 3.5 -Current Size (cm) - Width 3 3 -Current Size (cm) - Depth 0.1 0.1 -Total Square Cm 9 10.5 -Exudate Amt Medium Large -Exudate Type Serosanguineous Serosanguineous -Wound Margin Distinct, Distinct, Outline Outline Attached Attached -Granulation Amt Large (67-100%) Medium (34-66%) -Granulation Quality [place] -Necrosis Amt None Present (0 Medium (34-66%) %) -Necrotic Tissue Type Adherent Slough -Texture (Dunia-wound Skin Appearance) Assessed, Assessed, Scarring Scarring -Moisture ([place]-wound Skin Appearance) No Abnormality, No Abnormality, Assessed Assessed -Color ([place]-wound Skin Appearance) No Abnormality, No Abnormality, Assessed Assessed -Temperature ([place]-wound Skin No Abnormality No Abnormality Appearance) (Pt Warm) (Pt Warm) -Tenderness on Palpation ([place]-wound No No Skin Appearance) -Ulcer Cleansing Rinsed/ Soap and Water Irrigated with Saline -Foul Odor after Cleansing No No -Anesthetic Used 5% Lidocaine 5% Lidocaine Gel Gel Left Calf (cm) 39 Left Ankle (cm) 23.5 - Nurse 2 - General Ulcer CM Notes Start: 07/10/22 13:36 Freq: Status: Active Protocol: Activity Type Activity Date Activity User E-sign Co-sign Detail Recorded Client Recorded Date Recorded By Document 07/12/22 11:54 PL [id number] 07/12/22 11:56 PL Document 07/19/22 12:13 PL [id number] 07/19/22 12:16 PL Edit Result 07/19/22 12:13 PL (1) [id number] 07/20/22 07:26 PL (1) #10 LL FOOT - Debridement - Subq, 1st 20sq cm Yes => No - Apply Skin Sub - 1st 25 sq cm - Feet => 1 07/12/22 07/19/22 11:54 12:13 Wound Center Nurse 2 #10 LL FOOT -Time 08:40 10:50 -Correct Patient Yes Yes -Correct Side, Site, Position Yes Yes -Correct Procedure Yes Yes -Procedure Performed Yes Yes -Type of Procedure Debridement Debridement -Clinical Debridement Subcutaneous Subcutaneous -Tissue Removed Subcutaneous Subcutaneous -Post Debridement (cm) - Length 3.9 3.5 -Post Debridement (cm) - Width 2.8 2.7 -Post Debridement (cm) - Depth 0.1 0.1 -Total Square (Post) (cm) 10.92 9.45 -Area of Debridement (cm) - Length 3.9 3.5 -Area of Debridement (cm) - Width 2.8 2.7 -Total Square (Area) (cm) 10.92 9.45 -Tunneling No No -Undermining/Tunneling No No -Circular Undermining No No -Wound/Ulcer Outcome Not Healed Not Healed -Ulcer Cleansing Rinsed/ Rinsed/ Irrigated with Irrigated with Saline Saline -Foul Odor after Cleansing No No -Bioengineered Tissue Yes Yes -Type of Bioengineered Tissue Epifix Mesh Epifix Mesh -Expiration Date 04/09/27 04/09/27 -Product Lot Number [id number] -Percent Used 100 100 -Bleeding Controlled with Pressure Pressure -Treatment Response Procedure Procedure Tolerated Well Tolerated Well -Debridement - Subq, 1st 20sq cm No No -Apply Skin Sub - 1st 25 sq cm - Feet 1 1 -Epifix Mesh (per sq cm) 11 11 Pain Scale: 0-10 Numeric Is Patient Pain Free? Yes Yes WC - Nurse 3 - General Ulcer D/C NN Start: 07/10/22 13:36 Freq: Status: Active Protocol: Activity Type Activity Date Activity User E-sign Co-sign Detail Recorded Client Recorded Date Recorded By Document 07/12/22 09:02 KR [id number] 07/12/22 09:03 KR Document 07/19/22 11:48 AK [id number] 07/19/22 11:51 AK 07/12/22 07/19/22 09:02 11:48 Wound Care Nurse 3 #10 LL FOOT -Ulcer Cleansing Rinsed/ Rinsed/ Irrigated with Irrigated with Saline Saline -Foul Odor after Cleansing No -Negative Pressure Wound Therapy N/A -Other Dressing ABD ABD -Primary Dressing Covered/Secured with Dry Gauze,Dry Dry Gauze & Gauze & Roll Roll Gauze, Gauze,Secured Secured with with Tape Tape Left -Compression Wrap Kirill Wrap Pain Scale: 0-10 Numeric Is Patient Pain Free? 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: CODE(S): Z89.422 - Acquired absence of other left toe(s) (3) Type 2 diabetes mellitus with diabetic polyneuropathy: CODE(S): E11.42 - Type 2 diabetes mellitus with diabetic polyneuropathy (4) Diabetic foot ulcer: CODE(S): E11.621 - Type 2 diabetes mellitus with foot ulcer; L97.509 - Non-pressure chronic ulcer of other part of unspecified foot with unspecified severity QUALIFIERS: Diabetes mellitus type: type 2 Laterality: left Non- pressure ulcer stage: with necrosis of bone PLAN: Plan Patient seen and evaluated in wound care center He is?s/p I&D gas gangrene left foot with partial fifth ray amputation and excision of chronic diabetic ulceration.? POV #19 (DOS: 03/24/2022) POD #125 Left lower extremity: No edema noted. Fifth digit amputation noted. Patient has a hemoglobin A1c of 10.5%, this has remained unchanged from his last A1c in March.? I stressed again today continued diet modifications for proper glycemic control to aid in his healing and overall health.?He was encouraged to remain following with his fuel operator so that he may achieve a lower A1c. Infection: During surgical intervention 03/24/22 the tissues demonstrated normal integrity and were not easily dissectible through fascial planes with a finger as seen with typical necrotizing fasciitis cases.?He did however have soft tissue crepitus with foul odor consistent with a gas gangrene, confirmed by radiograph on 03/24/2022.? 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 WBC 16.3 with left shift prior to surgical intervention.?WBC currently within normal limits.? He is finished IV antibiotic course and PICC line removed. Sx Cultures: Culture of wound/ulceration &?Bone culture fifth toe/fifth metatarsal demonstrates staph epi, Enterococcus faecalis, Streptococcus mi tis/oralis, Turicella otitidis, Enterococcus casseliflavius, Peptostreptococcus prevotil, Prevotella bivia.? Cultures post surgical clearance demonstrate no growth. Wound: Wound underwent debridement as noted in clinical panel above today. Healthy granular tissue noted with no localized signs of infection.? No purulent drainage noted, no malodor noted.? Wound is continuing to granulate in well. He underwent debridement of the necrotic 4th metatarsal head on 05/24/22.? Wound measures 3.2 cm x 2.2 cm x 0.1 cm.? He has resumed hyperbaric dives following tube placement. He was approved for epi fix graft.? Epi fix mesh graft #6 applied to the wound bed today. He is not to get the dressing wet and to leave the dressings clean, dry, and intact to the left foot.? No expressible purulent drainage noted.?Radiographs were ordered of the left foot 05/31/22. Radiographs demonstrate: Amputation of the fifth metatarsal at the level of the mid diaphysis.?There is interval development of osseous destruction of the base of the fourth proximal phalanx and distal fourth metatarsal suspicious of osteomyelitis.Further debridement was performed on 05/31/22 removing nonviable tissue/bone in the base of his proximal phalanx of the fourth digit.? There is continued improvement in the appearance of his wound today with continued reduction in size. He has finished oral antibiotic course. I will continue to monitor him for any progressing signs of infection.?He is aware that further surgical intervention may be required pending his progress. Dressings: Epi fix mesh graft, Adaptic touch and anchored with Steri-Strips with dry sterile dressing.? He was instructed to keep his dressings clean, dry, and intact to the left foot.?Continue to elevate the left lower extremity at all dk es of rest. He was instructed that if his dressing falls off or gets removed prior to his next visit he is to return to [facility]'s wet-to-dry dressings. He voices understanding of that. Patient is to remain nonweightbearing to the left lower extremity with assistance of a knee scooter Visiting nursing to assist in dressing changes to the left foot. He will return to the wound care center in 2 weeks for continued localized wound care and close monitoring. Note: [employer] speech recognition supervisor rose grading software was used to create portions of this document. Sound-alike and misspelled words, as well as other supervisor rose grading errors may be contained in the documentation.
[2022-07-26 10:35] VITALS: BP 120/69; PULSE 92; TEMP 36.4; BMI 34.2
[2022-07-26 10:40] LABS: Bedside Glucose 152 mg/dL (74-106)
[2022-07-26 11:59] VITALS: BP 120/69; BP 139/57; PULSE 80; PULSE 92; RESP 16; RESP 17; TEMP 35.9
--- NOTE | 2022-07-26 12:51 | PCM.HBO.PN ---
History of Present Illness Date of Service: 07/26/22 Chief Complaint: Osteomyelitis of the left foot; diabetic foot ulceration History of Wound: Patient is a 51-year-old male who presents to the wound care center for evaluation for hyperbaric oxygen therapy. He has been seeing Dr. 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 His ulcer is not making the progress that it should. He has a Gustafson stage III ulcer on his left foot. He uses a knee scooter. 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 There is interval development of osseous destruction of the head and distal diaphysis of the fourth metatarsal and base of the fourth proximal phalanx. Arterial study from 01/09/22, Right RANJAN - 1.19, Left RANJAN - NC, Left digital-brachial index is 0.67. The left digital-brachial index is mildly diminished. There is evidence of arterial calcification at ankle level on the left. Arterial flow appears normal at ankle level bilaterally, and at digital level on the right. There is evidence of mild arterial occlusive disease at digital level on the left. MRI of left lower extremity from 10/07/19 showed Marrow edema consistent osteomyelitis of the distal phalanges of the fourth and fifth toes. Soft tissue swelling. He has a history of DM Type II, last HgA1c 10.5 on 05/31/22, Kidney transplant one year ago, peripheral vascular disease, atherosclerotic heart disease, AMI, neuropathy, and GERD. He has received cardiac clearance from Dr. Oneill. Chest x-ray from 05/31/22 is normal. Today he denies fever, chills, nausea, vomiting. Patient has been having issues with his left TM, he was sent to ENT and an ear tube was place in the left ear only on 07/17/22. Patient has been approved for 30 treatment of hyperbaric oxygen therapy. Progress of Wound: Progress: Today is the 8th treatment of hyperbaric oxygen therapy. The patient is scheduled for 30 treatments total. Tolerance of hyperbaric oxygen therapy: Hyperbaric oxygen treatment was provided as per the facility's protocol at 2.0 BETO in 100% oxygen for 90 minutes without air breaks. The patient tolerated hyperbaric oxygen well, without complications or complaints. Upon emergence of the hyperbaric chamber, the patient's vital signs remained stable. Subjective Subjective No new concerns at this time. Objective Data Objective Data Vital Signs: Vital Signs Temp Pulse Resp BP 96.6 F L 92 16 120/69 07/26/22 11:59 07/26/22 11:59 07/26/22 11:59 07/26/22 11:59 Weight: 225 lb Body Mass Index (BMI) 34.2 Lab / Micro Data Labs: Laboratory Results - last 24 hr 07/26/22 08:02: POC Glucose 188 H 07/26/22 10:18: POC Glucose 152 H Exam Physical Exam Const alert, oriented x3 and no apparent distress HEENT TM's normal bilaterally HEENT Narrative: Tympanostomy tube present. 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 Any new allergies or adverse reactions No Had a fall/change in ADL's that may No increase risk of falls Signs or symptoms of abuse and/or No neglect since last visit Have you been in the hospital since your No last visit? Has dressing in place as prescribed Yes Has compression in place as prescribed Yes Has offloadiing in place as prescribed N/A Experienced any changes in pain level or No management Left Footwear Regular Shoe Right Footwear Regular Shoe Pain Scale: 0-10 Numeric Is Patient Pain Free? Yes WC - Nurse 1 - General Ulcer Measurement Start: 07/10/22 13:36 Freq: Status: Active Protocol: Activity Type Activity Date Activity User E-sign Co-sign Detail Recorded Client Recorded Date Recorded By Document 07/26/22 10:35 JOE [id number] 07/26/22 10:36 JOE 07/26/22 10:35 Wound Center Nurse 1 #10 LL FOOT -Current Size (cm) - Length 3.5 -Current Size (cm) - Width 2.5 -Current Size (cm) - Depth 0.1 -Total Square Cm 8.75 -Exudate Amt Medium -Exudate Type Serosanguineous -Wound Margin Distinct, Outline Attached -Granulation Amt Medium (34-66%) -Granulation Quality [place] -Necrosis Amt Medium (34-66%) -Necrotic Tissue Type Adherent Slough -Texture ([place]ia-wound Skin Appearance) Assessed, Scarring -Moisture ([place]-wound Skin Appearance) No Abnormality, Assessed -Color ([place]ia-wound Skin Appearance) No Abnormality, Assessed -Temperature ([place]-wound Skin No Abnormality Appearance) (Pt Warm) -Tenderness on Palpation ([place]-wound No Skin Appearance) -Ulcer Cleansing Soap and Water -Foul Odor after Cleansing No -Anesthetic Used 5% Lidocaine Gel OSWALD - Nurse 2 - General Ulcer CM Notes Start: 07/10/22 13:36 Freq: Status: Active Protocol: Activity Type Activity Date Activity User E-sign Co-sign Detail Recorded Client Recorded Date Recorded By Document 07/26/22 10:50 CARLINE [id number] 07/26/22 10:56 CARLINE 07/26/22 10:50 Wound Center Nurse 2 -Time 10:50 -Correct Patient Yes -Correct Side, Site, Position Yes -Correct Procedure Yes -Procedure Performed Yes -Type of Procedure Debridement -Clinical Debridement Subcutaneous -Tissue Removed Subcutaneous -Post Debridement (cm) - Length 3.6 -Post Debridement (cm) - Width 2.2 -Post Debridement (cm) - Depth 0.1 -Total Square (Post) (cm) 7.92 -Area of Debridement (cm) - Length 3.6 -Area of Debridement (cm) - Width 2.2 -Total Square (Area) (cm) 7.92 -Tunneling No -Undermining/Tunneling No -Circular Undermining No -Wound/Ulcer Outcome Not Healed -Ulcer Cleansing Rinsed/ Irrigated with Saline -Foul Odor after Cleansing No -Bioengineered Tissue Yes -Type of Bioengineered Tissue Epifix Mesh -Expiration Date 04/09/27 -Product Lot Number [id number] -Percent Used 100 -Lot number of Saline Used [id number] -Bleeding Controlled with Pressure -Treatment Response Procedure Tolerated Well -Offloading Yes -Type of Offloading Knee Walker -Debridement - Subq, 1st 20sq cm No -Apply Skin Sub - 1st 25 sq cm - Feet 1 -Epifix Mesh (per sq cm) 11 Pain Scale: 0-10 Numeric Is Patient Pain Free? Yes - Nurse 3 - General Ulcer D/C NN Start: 07/10/22 13:36 Freq: Status: Active Protocol: Activity Type Activity Date Activity User E-sign Co-sign Detail Recorded Client Recorded Date Recorded By Document 07/26/22 11:08 [id number] 07/26/22 11:09 07/26/22 11:08 Wound Care Nurse 3 #10 LL FOOT -Other Dressing ABD pad -Primary Dressing Covered/Secured with Dry Gauze,Dry Gauze & Roll Gauze,Secured with Tape Pain Scale: 0-10 Numeric Is Patient Pain Free? Yes - Visit Discharge Discharge Condition Stable Ambulatory Status Ambulatory Transportation Private Auto Charges/Coding Wound Center CF Procedures HBO Supervision: [id number] Hyperbaric Oxygen; supervision Assessment/Plan Assessment/Plan (1) Osteomyelitis of metatarsal: CODE(S): M86.9 - Osteomyelitis, unspecified (2) 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 exposed: CODE(S): L97.522 - 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 exposed (3) Type 2 diabetes mellitus with diabetic polyneuropathy: CODE(S): E11.42 - Type 2 diabetes mellitus with diabetic polyneuropathy PLAN: Plan The patient tolerated hyperbaric oxygen therapy well, which will be continued as per the patient's medical plan. This note was generated with [employer] software. It may contain incorrect words, spelling, and punctuation that were not noted in checking the note before signing.
[2022-07-27 08:11] LABS: Bedside Glucose 261 mg/dL (74-106)
[2022-07-27 08:25] LABS: Bedside Glucose 196 mg/dL (74-106)
[2022-07-27 10:31] LABS: Bedside Glucose 131 mg/dL (74-106)
[2022-07-27 11:52] VITALS: BP 120/70; BP 93/53; PULSE 76; PULSE 89; RESP 16; RESP 17; TEMP 36.1
--- NOTE | 2022-07-27 13:13 | HBO.PN.PCM_ITS ---
History of Present Illness Date of Service: 07/27/22 Chief Complaint: Osteomyelitis of the left foot; diabetic foot ulceration History of Wound: Patient is a 51-year-old male who presents to the wound care center for evaluation for hyperbaric oxygen therapy. He has been seeing Dr. 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 His ulcer is not making the progress that it should. He has a Gustafson stage III ulcer on his left foot. He uses a knee scooter. 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 There is interval development of osseous destruction of the head and distal diaphysis of the fourth metatarsal and base of the fourth proximal phalanx. Arterial study from 01/09/22, Right RANJAN - 1.19, Left RANJAN - NC, Left digital- brachial index is 0.67. The left digital-brachial index is mildly diminished. There is evidence of arterial calcification at ankle level on the left. Arterial flow appears normal at ankle level bilaterally, and at digital level on the right. There is evidence of mild arterial occlusive disease at digital level on the left. MRI of left lower extremity from 10/07/19 showed Marrow edema consistent osteomyelitis of the distal phalanges of the fourth and fifth toes. Soft tissue swelling. He has a history of DM Type II, last HgA1c 10.5 on 05/31/22, Kidney transplant one year ago, peripheral vascular disease, atherosclerotic heart disease, AMI, neuropathy, and GERD. He has received cardiac clearance from Dr. Oneill. Chest x-ray from 05/31/22 is normal. Today he denies fever, chills, nausea, vomiting. Patient has been having issues with his left TM, he was sent to ENT and an ear tube was place in the left ear only on 07/17/22. Patient has been approved for 30 treatment of hyperbaric oxygen therapy. Progress of Wound: Progress: Today is the 9th treatment of hyperbaric oxygen therapy. The patient is scheduled for 30 treatments total. Tolerance of hyperbaric oxygen therapy: Hyperbaric oxygen treatment was provided as per the facility's protocol at 2.0 BETO in 100% oxygen for 90 minutes without air breaks. The patient tolerated hyperbaric oxygen well, without complications or complaints. Upon emergence of the hyperbaric chamber, the patient's vital signs remained stable. Objective Data Objective Data Vital Signs: Vital Signs Temp Pulse Resp BP 96.9 F L 89 17 93/53 L 07/27/22 11:52 07/27/22 11:52 07/27/22 11:52 07/27/22 11:52 Weight: 102.058 kg Body Mass Index (BMI) 34.2 Lab / Micro Data Labs: Laboratory Results - last 24 hr 07/27/22 07:51: POC Glucose 261 H 07/27/22 08:08: POC Glucose 196 H 07/27/22 10:09: POC Glucose 131 H Exam Physical Exam Const alert, oriented x3 and no apparent distress Psych mental status grossly normal, thought process normal, cooperative, affect normal and speech normal Nursing Assessment and Debridement Post-Debridement Measurements and Additional Note: Post-Debridement Measurements/Treatment WC - Nurse 1 - General Ulcer Assessment Start: 07/10/22 13:36 Freq: Status: Active Protocol: HOLLY Activity Type Activity Date Activity User E-sign Co-sign Detail Recorded Client Recorded Date Recorded By Document 07/26/22 10:35 [id number] 07/26/22 10:36 07/26/22 10:35 - Today's Visit Information 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 Any new allergies or adverse reactions No Had a fall/change in ADL's that may No increase risk of falls Signs or symptoms of abuse and/or No neglect since last visit Have you been in the hospital since your No last visit? Has dressing in place as prescribed Yes Has compression in place as prescribed Yes Has offloadiing in place as prescribed N/A Experienced any changes in pain level or No management Left Footwear Regular Shoe Right Footwear Regular Shoe Pain Scale: 0-10 Numeric Is Patient Pain Free? Yes WC - Nurse 1 - General Ulcer Measurement Start: 07/10/22 13:36 Freq: Status: Active Protocol: Activity Type Activity Date Activity User E-sign Co-sign Detail Recorded Client Recorded Date Recorded By Document 07/26/22 10:35 JOE [id number] 07/26/22 10:36 JOE 07/26/22 10:35 Wound Center Nurse 1 #10 LL FOOT -Current Size (cm) - Length 3.5 -Current Size (cm) - Width 2.5 -Current Size (cm) - Depth 0.1 -Total Square Cm 8.75 -Exudate Amt Medium -Exudate Type Serosanguineous -Wound Margin Distinct, Outline Attached -Granulation Amt Medium (34-66%) -Granulation Quality [place] -Necrosis Amt Medium (34-66%) -Necrotic Tissue Type Adherent Slough -Texture (Dunia-wound Skin Appearance) Assessed, Scarring -Moisture (Dunia-wound Skin Appearance) No Abnormality, Assessed -Color (Dunia-wound Skin Appearance) No Abnormality, Assessed -Temperature (Dunia-wound Skin No Abnormality Appearance) (Pt Warm) -Tenderness on Palpation (Dunia-wound No Skin Appearance) -Ulcer Cleansing Soap and Water -Foul Odor after Cleansing No -Anesthetic Used 5% Lidocaine Gel - Nurse 2 - General Ulcer CM Notes Start: 07/10/22 13:36 Freq: Status: Active Protocol: Activity Type Activity Date Activity User E-sign Co-sign Detail Recorded Client Recorded Date Recorded By Document 07/26/22 10:50 CARLINE [id number] 07/26/22 10:56 CARLINE 07/26/22 10:50 Wound Center Nurse 2 -Time 10:50 -Correct Patient Yes -Correct Side, Site, Position Yes -Correct Procedure Yes -Procedure Performed Yes -Type of Procedure Debridement -Clinical Debridement Subcutaneous -Tissue Removed Subcutaneous -Post Debridement (cm) - Length 3.6 -Post Debridement (cm) - Width 2.2 -Post Debridement (cm) - Depth 0.1 -Total Square (Post) (cm) 7.92 -Area of Debridement (cm) - Length 3.6 -Area of Debridement (cm) - Width 2.2 -Total Square (Area) (cm) 7.92 -Tunneling No -Undermining/Tunneling No -Circular Undermining No -Wound/Ulcer Outcome Not Healed -Ulcer Cleansing Rinsed/ Irrigated with Saline -Foul Odor after Cleansing No -Bioengineered Tissue Yes -Type of Bioengineered Tissue Epifix Mesh -Expiration Date 04/09/27 -Product Lot Number [id number] -Percent Used 100 -Lot number of Saline Used [id number] -Bleeding Controlled with Pressure -Treatment Response Procedure Tolerated Well -Offloading Yes -Type of Offloading Knee Walker -Debridement - Subq, 1st 20sq cm No -Apply Skin Sub - 1st 25 sq cm - Feet 1 -Epifix Mesh (per sq cm) 11 Pain Scale: 0-10 Numeric Is Patient Pain Free? Yes - Nurse 3 - General Ulcer D/C NN Start: 07/10/22 13:36 Freq: Status: Active Protocol: Activity Type Activity Date Activity User E-sign Co-sign Detail Recorded Client Recorded Date Recorded By Document 07/26/22 11:08 [id number] 07/26/22 11:09 07/26/22 11:08 Wound Care Nurse 3 #10 LL FOOT -Other Dressing ABD pad -Primary Dressing Covered/Secured with Dry Gauze,Dry Gauze & Roll Gauze,Secured with Tape Pain Scale: 0-10 Numeric Is Patient Pain Free? Yes - Visit Discharge Discharge Condition Stable Ambulatory Status Ambulatory Transportation Private Auto Assessment/Plan Assessment/Plan (1) Osteomyelitis of metatarsal: CODE(S): M86.9 - Osteomyelitis, unspecified (2) 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 exposed: CODE(S): L97.522 - 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 exposed (3) Type 2 diabetes mellitus with diabetic polyneuropathy: CODE(S): E11.42 - Type 2 diabetes mellitus with diabetic polyneuropathy PLAN: Plan The patient appears to be tolerating hyperbaric oxygen therapy well, which will be continued as per the patient's medical plan.
[2022-07-30 08:10] LABS: Bedside Glucose 251 mg/dL (74-106)
--- NOTE | 2022-07-30 08:20 | HBO.PN.PCM_ITS ---
History of Present Illness Date of Service: 07/30/22 Chief Complaint: Osteomyelitis of the left foot; diabetic foot ulceration History of Wound: Patient is a 51-year-old male who presents to the wound care center for evaluation for hyperbaric oxygen therapy. He has been seeing Dr. 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 His ulcer is not making the progress that it should. He has a Gustafson stage III ulcer on his left foot. He uses a knee scooter. 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 There is interval development of osseous destruction of the head and distal diaphysis of the fourth metatarsal and base of the fourth proximal phalanx. Arterial study from 01/09/22, Right RANJAN - 1.19, Left RANJAN - [place], Left digital- brachial index is 0.67. The left digital-brachial index is mildly diminished. There is evidence of arterial calcification at ankle level on the left. Arterial flow appears normal at ankle level bilaterally, and at digital level on the right. There is evidence of mild arterial occlusive disease at digital level on the left. MRI of left lower extremity from 10/07/19 showed Marrow edema consistent osteomyelitis of the distal phalanges of the fourth and fifth toes. Soft tissue swelling. He has a history of DM Type II, last HgA1c 10.5 on 05/31/22, Kidney transplant one year ago, peripheral vascular disease, atherosclerotic heart disease, AMI, neuropathy, and GERD. He has received cardiac clearance from Dr. Oneill. Chest x-ray from 05/31/22 is normal. Today he denies fever, chills, nausea, vomiting. Patient has been having issues with his left TM, he was sent to ENT and an ear tube was place in the left ear only on 07/17/22. Patient has been approved for 30 treatment of hyperbaric oxygen therapy. Progress of Wound: Progress: Today is the 10th treatment of hyperbaric oxygen therapy. The patient is scheduled for 30 treatments total. Tolerance of hyperbaric oxygen therapy: Hyperbaric oxygen treatment was provided as per the facility's protocol at 2.0 BETO in 100% oxygen for 90 minutes without air breaks. The patient tolerated hyperbaric oxygen well, without complications or complaints. Upon emergence of the hyperbaric chamber, the patient's vital signs remained stable. Objective Data Objective Data Vital Signs: Vital Signs Temp Pulse Resp BP 96.9 F L 89 17 93/53 L 07/27/22 11:52 07/27/22 11:52 07/27/22 11:52 07/27/22 11:52 Weight: 225 lb Body Mass Index (BMI) 34.2 Lab / Micro Data Labs: Laboratory Results - last 24 hr 07/30/22 07:53: POC Glucose 251 H Exam Physical Exam Const alert, oriented x3 and no apparent distress HEENT HEENT Narrative: Tympanostomy tube present and patent left TM Psych mental status grossly normal, thought process normal, cooperative, affect normal and speech normal Assessment/Plan Assessment/Plan (1) Osteomyelitis of metatarsal: CODE(S): M86.9 - Osteomyelitis, unspecified (2) 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 exposed: CODE(S): L97.522 - 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 exposed (3) Type 2 diabetes mellitus with diabetic polyneuropathy: CODE(S): E11.42 - Type 2 diabetes mellitus with diabetic polyneuropathy PLAN: Plan The patient appears to be tolerating hyperbaric oxygen therapy well, which will be continued as per the patient's medical plan.
[2022-07-30 08:31] LABS: Bedside Glucose 238 mg/dL (74-106)
[2022-07-30 08:59] VITALS: BP 119/73; BP 130/70; PULSE 78; PULSE 87; RESP 16; RESP 17; TEMP 36.3
[2022-07-30 10:40] LABS: Bedside Glucose 190 mg/dL (74-106)
[2022-07-31 08:06] LABS: Bedside Glucose 184 mg/dL (74-106)
[2022-07-31 08:58] VITALS: BP 112/58; BP 88/63; PULSE 77; PULSE 88; RESP 16; TEMP 36.3
[2022-07-31 10:25] LABS: Bedside Glucose 153 mg/dL (74-106)
--- NOTE | 2022-07-31 13:36 | HBO.PN.PCM_ITS ---
History of Present Illness Date of Service: 07/31/22 Chief Complaint: Osteomyelitis of the left foot; diabetic foot ulceration History of Wound: Patient is a 51-year-old male who presents to the wound care center for evaluation for hyperbaric oxygen therapy. He has been seeing Dr. 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 His ulcer is not making the progress that it should. He has a Gustafson stage III ulcer on his left foot. He uses a knee scooter. 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 There is interval development of osseous destruction of the head and distal diaphysis of the fourth metatarsal and base of the fourth proximal phalanx. Arterial study from 01/09/22, Right RANJAN - 1.19, Left RANJAN - NC, Left digital- brachial index is 0.67. The left digital-brachial index is mildly diminished. There is evidence of arterial calcification at ankle level on the left. Arterial flow appears normal at ankle level bilaterally, and at digital level on the right. There is evidence of mild arterial occlusive disease at digital level on the left. MRI of left lower extremity from 10/07/19 showed Marrow edema consistent osteomyelitis of the distal phalanges of the fourth and fifth toes. Soft tissue swelling. He has a history of DM Type II, last HgA1c 10.5 on 05/31/22, Kidney transplant one year ago, peripheral vascular disease, atherosclerotic heart disease, AMI, neuropathy, and GERD. He has received cardiac clearance from Dr. Oneill. Chest x-ray from 05/31/22 is normal. Today he denies fever, chills, nausea, vomiting. Patient has been having issues with his left TM, he was sent to ENT and an ear tube was place in the left ear only on 07/17/22. Patient has been approved for 30 treatment of hyperbaric oxygen therapy. Progress of Wound: Progress: Today is the 11th treatment of hyperbaric oxygen therapy. The patient is scheduled for 30 treatments total. Tolerance of hyperbaric oxygen therapy: Hyperbaric oxygen treatment was provided as per the facility's protocol at 2.0 BETO in 100% oxygen for 90 minutes without air breaks. The patient tolerated hyperbaric oxygen well, without complications or complaints. Upon emergence of the hyperbaric chamber, the patient's vital signs remained stable. Objective Data Objective Data Vital Signs: Vital Signs Temp Pulse Resp BP 97.3 F L 88 16 88/63 L 07/31/22 08:58 07/31/22 08:58 07/31/22 08:58 07/31/22 08:58 Weight: 225 lb Body Mass Index (BMI) 34.2 Lab / Micro Data Labs: Laboratory Results - last 24 hr 07/31/22 07:47: POC Glucose 184 H 07/31/22 10:03: POC Glucose 153 H Exam Physical Exam Const alert, oriented x3 and no apparent distress HEENT HEENT Narrative: Tympanostomy tube present and patent left TM Psych mental status grossly normal, thought process normal, cooperative, affect normal and speech normal Assessment/Plan Assessment/Plan (1) Osteomyelitis of metatarsal: CODE(S): M86.9 - Osteomyelitis, unspecified (2) 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 exposed: CODE(S): L97.522 - 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 exposed (3) Type 2 diabetes mellitus with diabetic polyneuropathy: CODE(S): E11.42 - Type 2 diabetes mellitus with diabetic polyneuropathy PLAN: Plan The patient appears to be tolerating hyperbaric oxygen therapy well, which will be continued as per the patient's medical plan.
[2022-08-01 08:06] LABS: Bedside Glucose 219 mg/dL (74-106)
--- NOTE | 2022-08-01 08:52 | HBO.PN.PCM_ITS ---
History of Present Illness Date of Service: 08/01/22 Chief Complaint: Osteomyelitis of the left foot; diabetic foot ulceration History of Wound: Patient is a 51-year-old male who presents to the wound care center for evaluation for hyperbaric oxygen therapy. He has been seeing Dr. 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 His ulcer is not making the progress that it should. He has a Gustafson stage III ulcer on his left foot. He uses a knee scooter. 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 There is interval development of osseous destruction of the head and distal diaphysis of the fourth metatarsal and base of the fourth proximal phalanx. Arterial study from 01/09/22, Right RANJAN - 1.19, Left RANJAN - NC, Left digital- brachial index is 0.67. The left digital-brachial index is mildly diminished. There is evidence of arterial calcification at ankle level on the left. Arterial flow appears normal at ankle level bilaterally, and at digital level on the right. There is evidence of mild arterial occlusive disease at digital level on the left. MRI of left lower extremity from 10/07/19 showed Marrow edema consistent osteomyelitis of the distal phalanges of the fourth and fifth toes. Soft tissue swelling. He has a history of DM Type II, last HgA1c 10.5 on 05/31/22, Kidney transplant one year ago, peripheral vascular disease, atherosclerotic heart disease, AMI, neuropathy, and GERD. He has received cardiac clearance from Dr. Onelil. Chest x-ray from 05/31/22 is normal. Today he denies fever, chills, nausea, vomiting. Patient has been having issues with his left TM, he was sent to ENT and an ear tube was place in the left ear only on 07/17/22. Patient has been approved for 30 treatment of hyperbaric oxygen therapy. Progress of Wound: Progress: Today is the 12th treatment of hyperbaric oxygen therapy. The patient is scheduled for 30 treatments total. Tolerance of hyperbaric oxygen therapy: Hyperbaric oxygen treatment was provided as per the facility's protocol at 2.0 BETO in 100% oxygen for 90 minutes without air breaks. The patient tolerated hyperbaric oxygen well, without complications or complaints. Upon emergence of the hyperbaric chamber, the patient's vital signs remained stable. Objective Data Objective Data Vital Signs: Vital Signs Temp Pulse Resp BP 97.3 F L 88 16 88/63 L 07/31/22 08:58 07/31/22 08:58 07/31/22 08:58 07/31/22 08:58 Weight: 225 lb Body Mass Index (BMI) 34.2 Lab / Micro Data Labs: Laboratory Results - last 24 hr 07/31/22 10:03: POC Glucose 153 H 08/01/22 07:46: POC Glucose 219 H Exam Physical Exam Const alert, oriented x3 and no apparent distress HEENT HEENT Narrative: Tympanostomy tube present and patent left TM Psych mental status grossly normal, thought process normal, cooperative, affect normal and speech normal Assessment/Plan Assessment/Plan (1) Osteomyelitis of metatarsal: CODE(S): M86.9 - Osteomyelitis, unspecified (2) 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 exposed: CODE(S): L97.522 - 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 exposed (3) Type 2 diabetes mellitus with diabetic polyneuropathy: CODE(S): E11.42 - Type 2 diabetes mellitus with diabetic polyneuropathy PLAN: Plan The patient appears to be tolerating hyperbaric oxygen therapy well, which will be continued as per the patient's medical plan.
[2022-08-01 10:18] VITALS: BP 107/57; BP 107/60; PULSE 74; PULSE 89; RESP 17; TEMP 36.5
[2022-08-01 10:21] LABS: Bedside Glucose 225 mg/dL (74-106)
[2022-08-06 08:30] LABS: Bedside Glucose 278 mg/dL (74-106)
[2022-08-06 08:30] LABS: Bedside Glucose 276 mg/dL (74-106)
--- NOTE | 2022-08-06 09:18 | WC ---
patient unable to dive d/t blood sugar 276. Suzanne informed and cancelled dive.
--- NOTE | 2022-08-06 16:57 | HBO.PN.PCM_ITS ---
History of Present Illness Date of Service: 08/06/22 Chief Complaint: Osteomyelitis of the left foot; diabetic foot ulceration History of Wound: Patient is a 51-year-old male who presents to the wound care center for evaluation for hyperbaric oxygen therapy. He has been seeing Dr. 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 His ulcer is not making the progress that it should. He has a Gustafson stage III ulcer on his left foot. He uses a knee scooter. 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 There is interval development of osseous destruction of the head and distal diaphysis of the fourth metatarsal and base of the fourth proximal phalanx. Arterial study from 01/09/22, Right RANJAN - 1.19, Left RANJAN - NC, Left digital- brachial index is 0.67. The left digital-brachial index is mildly diminished. There is evidence of arterial calcification at ankle level on the left. Arterial flow appears normal at ankle level bilaterally, and at digital level on the right. There is evidence of mild arterial occlusive disease at digital level on the left. MRI of left lower extremity from 10/07/19 showed Marrow edema consistent osteomyelitis of the distal phalanges of the fourth and fifth toes. Soft tissue swelling. He has a history of DM Type II, last HgA1c 10.5 on 05/31/22, Kidney transplant one year ago, peripheral vascular disease, atherosclerotic heart disease, AMI, neuropathy, and GERD. He has received cardiac clearance from Dr. Oneill. Chest x-ray from 05/31/22 is normal. Today he denies fever, chills, nausea, vomiting. Patient has been having issues with his left TM, he was sent to ENT and an ear tube was place in the left ear only on 07/17/22. Patient has been approved for 30 treatment of hyperbaric oxygen therapy. Progress of Wound: Progress: Today was to be the 13th treatment of hyperbaric oxygen therapy. The patient is scheduled for 30 treatments total. Patient did not have HBOT today due to his blood sugar being 278, then on recheck it was 276. He states he took his insulin today. His treatment was cancelled for today. Objective Data Objective Data Vital Signs: Vital Signs Temp Pulse Resp BP 97.7 F L 89 17 107/60 08/01/22 10:18 08/01/22 10:18 08/01/22 10:18 08/01/22 10:18 Weight: 225 lb Body Mass Index (BMI) 34.2 Lab / Micro Data Labs: Laboratory Results - last 24 hr 08/06/22 07:55: POC Glucose 278 H 08/06/22 08:11: POC Glucose 276 H Exam Physical Exam Const alert and oriented x3 General Appearance: cooperative HEENT normocephalic Eyes PERRL Resp normal respiratory effort Psych affect normal Charges/Coding Visit Charges Office Visits / Consults: [id number] OV L2 Est Assessment/Plan Assessment/Plan (1) Osteomyelitis of metatarsal: CODE(S): M86.9 - Osteomyelitis, unspecified (2) 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 exposed: CODE(S): L97.522 - 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 exposed (3) Type 2 diabetes mellitus with diabetic polyneuropathy: CODE(S): E11.42 - Type 2 diabetes mellitus with diabetic polyneuropathy PLAN: Plan His treatment was cancelled today due to his blood sugars being too high. He will come in tomorrow for his treatment.
--- NOTE | 2022-08-07 08:36 | HBO.PN.PCM_ITS ---
History of Present Illness Date of Service: 08/07/22 Chief Complaint: Osteomyelitis of the left foot; diabetic foot ulceration History of Wound: Patient is a 51-year-old male who presents to the wound care center for evaluation for hyperbaric oxygen therapy. He has been seeing Dr. 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 His ulcer is not making the progress that it should. He has a Gustafson stage III ulcer on his left foot. He uses a knee scooter. 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 There is interval development of osseous destruction of the head and distal diaphysis of the fourth metatarsal and base of the fourth proximal phalanx. Arterial study from 01/09/22, Right RANJAN - 1.19, Left RANJAN - NC, Left digital- brachial index is 0.67. The left digital-brachial index is mildly diminished. There is evidence of arterial calcification at ankle level on the left. Arterial flow appears normal at ankle level bilaterally, and at digital level on the right. There is evidence of mild arterial occlusive disease at digital level on the left. MRI of left lower extremity from 10/07/19 showed Marrow edema consistent osteomyelitis of the distal phalanges of the fourth and fifth toes. Soft tissue swelling. He has a history of DM Type II, last HgA1c 10.5 on 05/31/22, Kidney transplant one year ago, peripheral vascular disease, atherosclerotic heart disease, AMI, neuropathy, and GERD. He has received cardiac clearance from Dr. Oneill. Chest x-ray from 05/31/22 is normal. Today he denies fever, chills, nausea, vomiting. Patient has been having issues with his left TM, he was sent to ENT and an ear tube was place in the left ear only on 07/17/22. Patient has been approved for 30 treatment of hyperbaric oxygen therapy. Progress of Wound: Today is the 13th? treatment of hyperbaric oxygen therapy.? The patient is scheduled for 30 treatments total. Tolerance of hyperbaric oxygen therapy: Hyperbaric oxygen treatment was provided as per the facility's protocol at 2.0 BETO in 100% oxygen for 90 minutes without air breaks.? The patient tolerated hyperbaric oxygen well, without complications or complaints. Upon emergence of the hyperbaric chamber, the patient's vital signs remained stable. Objective Data Objective Data BGT 133 today. Glucerna shake given before starting HBOT Vital Signs: Vital Signs Temp Pulse Resp BP 97.7 F L 89 17 107/60 08/01/22 10:18 08/01/22 10:18 08/01/22 10:18 08/01/22 10:18 Weight: 225 lb Body Mass Index (BMI) 34.2 Exam Physical Exam Const alert, oriented x3 and no apparent distress General Appearance: cooperative HEENT normocephalic HEENT Narrative: Tympanostomy tube present and patent left TM. Right TM clear. Head and Scalp: atraumatic Resp normal respiratory effort and clear to auscultation bilaterally Effort and Inspection: able to speak in complete sentences Cardio regular rate and regular rhythm Psych mental status grossly normal, thought process normal, cooperative, affect normal and speech normal Charges/Coding Wound Center [facility] Procedures HBO Supervision: [id number] Hyperbaric Oxygen; supervision Assessment/Plan Assessment/Plan (1) Osteomyelitis of metatarsal: CODE(S): M86.9 - Osteomyelitis, unspecified (2) 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 exposed: CODE(S): L97.522 - 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 exposed (3) Type 2 diabetes mellitus with diabetic polyneuropathy: CODE(S): E11.42 - Type 2 diabetes mellitus with diabetic polyneuropathy PLAN: Plan The patient appears to be tolerating hyperbaric oxygen therapy well, which will be continued as per the patient's medical plan.
[2022-08-07 10:49] VITALS: BP 115/60; BP 99/63; PULSE 75; PULSE 87; RESP 16; RESP 17; TEMP 36.2
[2022-08-07 12:14] LABS: Bedside Glucose 133 mg/dL (74-106)
[2022-08-07 12:14] LABS: Bedside Glucose 155 mg/dL (74-106)
[2022-08-08 08:25] LABS: Bedside Glucose 183 mg/dL (74-106)
[2022-08-08 10:35] LABS: Bedside Glucose 197 mg/dL (74-106)
[2022-08-08 11:07] VITALS: BP 103/60; BP 147/71; PULSE 86; PULSE 87; RESP 17; RESP 18; TEMP 36.3; TEMP 36.4
--- NOTE | 2022-08-08 14:35 | HBO.PN.PCM_ITS ---
History of Present Illness Date of Service: 08/08/22 Chief Complaint: Osteomyelitis of the left foot; diabetic foot ulceration History of Wound: Patient is a 51-year-old male who presents to the wound care center for evaluation for hyperbaric oxygen therapy. He has been seeing Dr. 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 His ulcer is not making the progress that it should. He has a Gustafson stage III ulcer on his left foot. He uses a knee scooter. 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 There is interval development of osseous destruction of the head and distal diaphysis of the fourth metatarsal and base of the fourth proximal phalanx. Arterial study from 01/09/22, Right RANJAN - 1.19, Left RANJAN - NC, Left digital- brachial index is 0.67. The left digital-brachial index is mildly diminished. There is evidence of arterial calcification at ankle level on the left. Arterial flow appears normal at ankle level bilaterally, and at digital level on the right. There is evidence of mild arterial occlusive disease at digital level on the left. MRI of left lower extremity from 10/07/19 showed Marrow edema consistent osteomyelitis of the distal phalanges of the fourth and fifth toes. Soft tissue swelling. He has a history of DM Type II, last HgA1c 10.5 on 05/31/22, Kidney transplant one year ago, peripheral vascular disease, atherosclerotic heart disease, AMI, neuropathy, and GERD. He has received cardiac clearance from Dr. Oneill. Chest x-ray from 05/31/22 is normal. Today he denies fever, chills, nausea, vomiting. Patient has been having issues with his left TM, he was sent to ENT and an ear tube was place in the left ear only on 07/17/22. Patient has been approved for 30 treatment of hyperbaric oxygen therapy. Progress of Wound: Today is the 14th? treatment of hyperbaric oxygen therapy.? The patient is scheduled for 30 treatments total. Tolerance of hyperbaric oxygen therapy: Hyperbaric oxygen treatment was provided as per the facility's protocol at 2.0 BETO in 100% oxygen for 90 minutes without air breaks.? The patient tolerated hyperbaric oxygen well, without complications or complaints. Upon emergence of the hyperbaric chamber, the patient's vital signs remained stable. Objective Data Objective Data Vital Signs: Vital Signs Temp Pulse Resp BP 97.6 F L 87 18 103/60 08/08/22 11:07 08/08/22 11:07 08/08/22 11:07 08/08/22 11:07 Weight: 225 lb Body Mass Index (BMI) 34.2 Lab / Micro Data Labs: Laboratory Results - last 24 hr 08/08/22 08:04: POC Glucose 183 H 08/08/22 10:17: POC Glucose 197 H Exam Physical Exam Const alert, oriented x3 and no apparent distress General Appearance: cooperative HEENT normocephalic HEENT Narrative: Tympanostomy tube present and patent left TM. Right TM clear. Head and Scalp: atraumatic Resp normal respiratory effort and clear to auscultation bilaterally Effort and Inspection: able to speak in complete sentences Cardio regular rate and regular rhythm Psych mental status grossly normal, thought process normal, cooperative, affect normal and speech normal Charges/Coding Wound Center [facility] Procedures HBO Supervision: [id number] Hyperbaric Oxygen; supervision Assessment/Plan Assessment/Plan (1) Osteomyelitis of metatarsal: CODE(S): M86.9 - Osteomyelitis, unspecified (2) 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 exposed: CODE(S): L97.522 - 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 exposed (3) Type 2 diabetes mellitus with diabetic polyneuropathy: CODE(S): E11.42 - Type 2 diabetes mellitus with diabetic polyneuropathy PLAN: Plan The patient appears to be tolerating hyperbaric oxygen therapy well, which will be continued as per the patient's medical plan.
== END 2022-08-08 23:59 | disposition home or self-care (01) ==
LOC: WC 08:00
PROVIDERS: PCP Internal Medicine; Referring Provider Podiatrist; Visit Provider Student in an Organized Health Care Education/Training Program
DX: E11.621 Type 2 diabetes mellitus with foot ulcer (principal); Z89.422 Acquired absence of other left toe(s); L97.522 Non-pressure chronic ulcer of other part of left foot with fat layer exposed; M86.8X7 Other osteomyelitis, ankle and foot; E11.42 Type 2 diabetes mellitus with diabetic polyneuropathy; Z79.4 Long term (current) use of insulin; I25.10 Atherosclerotic heart disease of native coronary artery without angina pectoris; Z86.16 Personal history of COVID-19; Z79.82 Long term (current) use of aspirin; K21.9 Gastro-esophageal reflux disease without esophagitis; E78.5 Hyperlipidemia, unspecified; Z94.0 Kidney transplant status
CPT/HCPCS: 11042; 15275; 82962; 99183; Q4186; G0277

== ENCOUNTER 2022-08-28 10:02 | Emergency (ER) | payer MEDICARE, MEDICAID, SELFPAY ==
[2022-08-28 10:03] VITALS: BP 142/83; PULSE 78; RESP 14; TEMP 35.9; O2SAT 98; BMI 34.1
--- NOTE | 2022-08-28 10:16 | EX.ED.DYSGE1 ---
HPI History of Present Illness Chief Complaint: Hypoglycemia Narrative Narrative: Patient presents with hypoglycemia from the wound center. He took his diabetic medications this morning but only ate a piece of toast, he tells me he normally eats more. He is at the wound center after an amputation of the fifth toe of the left foot. 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 He is denying any chest pain or shortness of breath. No fevers or chills. [facility] Medical History Acute hypoxemic respiratory failure Acute on chronic diastolic CHF (congestive heart failure) Acute respiratory failure with hypoxia ILDA (acute kidney injury) Anasarca associated with disorder of kidney Anemia of chronic renal failure, stage 4 (severe) Anxiety and depression Atherosclerotic heart disease of [place] coronary artery without angina pectoris Autonomic neuropathy Blind left eye Cellulitis and abscess of right leg Cellulitis of left lower limb Chewing tobacco nicotine dependence Chronic renal failure, stage 4 (severe) Chronic renal failure, stage 5 Chronic ulcer of 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 COVID-19 COVID-19 Diabetes mellitus type II, uncontrolled Diabetic foot infection Diabetic foot ulcer Diabetic nephropathy Diabetic neuropathy Diabetic retinopathy Dyspnea Essential hypertension Fistula (~12/2018) Gas gangrene of foot GERD (gastroesophageal reflux disease) History of acute myocardial infarction History of left heart catheterization (LHC) (~06/26/11) HLD (hyperlipidemia) Hypertensive emergency Hypoglycemia Hypokalemia Hypoxemia Kidney failure Kidney stones Necrotizing fasciitis 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 exposed Noncompliance Obesity (BMI 30-39.9) Pneumonia Problem with dialysis access Pulmonary edema Respiratory failure Retention, urine Right leg pain 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 Vision problems Home Medications aspirin 81 mg chewable tablet 81 mg PO DAILY@0800 heart health 08/21/18 [History Last Taken 10/06/19] insulin lispro 100 unit/mL subcutaneous pen See Protocol SQ ACHS blood sugar 10/06/19 [History Last Taken 10/06/19] insulin glargine 100 unit/mL (3 mL) subcutaneous pen 0 unit subcut QHS blood sugar 08/11/20 [History Last Taken Unknown] atorvastatin 20 mg tablet (Lipitor) 20 mg PO QHS cholesterol 09/18/21 [History Last Taken Unknown] bupropion HCl 150 mg 24 hr tablet, extended release (Wellbutrin XL) 300 mg PO DAILY mood 09/18/21 [History Last Taken Unknown] docusate sodium 100 mg capsule (Colace) 100 mg PO DAILY constipation 09/18/21 [History Last Taken Unknown] mycophenolate mofetil 250 mg capsule (CellCept) 500 mg PO BID rejection med 09/18/21 [History Last Taken Unknown] pantoprazole 20 mg tablet,delayed release (Protonix) 20 mg PO DAILY gerd 09/18/21 [History Last Taken Unknown] prednisone 5 mg tablet 5 mg PO DAILY steroid 09/18/21 [History Last Taken Unknown] tacrolimus 1 mg tablet,extended release 24 hr (Envarsus XR) 1 mg PO DAILY rejection med 09/18/21 [History Last Taken Unknown] carvedilol 25 mg tablet 25 mg PO BID 12/26/21 [History Last Taken Unknown] cholecalciferol (vitamin D3) 25 mcg (1,000 unit) capsule (Vitamin D3) 50 mcg PO QWEEK 12/26/21 [History Last Taken Unknown] gabapentin 100 mg tablet 100 mg PO QHS 12/26/21 [History Last Taken Unknown] Allergy/AdvReac Type Severity Reaction Status Date / Time No Known Allergies Allergy Verified 08/28/22 10:07 Family History Mother Heart disease Hypertension Father Cancer Brother Cancer Diabetes Sister Diabetes Surgical History History of appendectomy History of arteriovenostomy for renal dialysis (~08/2018) History of artificial lens replacement History of cholecystectomy History of eye surgery Kidney replaced by transplant Renal transplant recipient Status post insertion of dialysis catheter (~08/2018) Social History household members: spouse Smoking Status: Never smoker second hand exposure: No alcohol intake: never substance use type: does not use caffeine: No ROS ROS ED ROS Narrative Past medical history: Reviewed, it is quite extensive, includes diabetes, diabetic foot, chronic renal failure, neuropathy Medications: Reviewed Social history: Noncontributory Review of systems: All systems negative except as indicated General: No fever. Some generalized weakness. Eyes: No visual changes ENT: No upper airway congestion, normal voice Neck: No neck pain Cardiovascular: No chest pain Respiratory: No shortness of breath or cough Gastrointestinal: No abdominal pain, nausea vomiting or diarrhea Genitourinary: No dysuria Musculoskeletal: He has no issues with his foot currently. Skin: No rash Neurological: No memory loss, confusion or any focal weakness Psych: No recent behavioral changes Hematologic: No easy bleeding or easy bruising EXAM Physical Exam Narrative Exam Narrative: Physical exam General: Patient appears chronically ill. Head: Normocephalic, Atraumatic Eyes: Conjunctiva not pale ENT: Moist mucous membranes, no signs of dehydration Neck: Supple, Nontender, No lymphadenopathy Cardiovascular: Regular rate, Regular rhythm Respiratory: No distress, CTA bilaterally Abdomen: Soft, Nontender, Nondistended Back: Nontender, Normal Inspection. Negative for: CVA tenderness Extremities: Wound seems clean dry and intact no active signs of infection on the foot Skin: Normal color, No rash Neurological: Alert, Normal Strength, Normal Sensation Psychological: Normal affect Const Vital Signs: 08/28/22 10:03 08/28/22 11:20 Temperature 96.7 F L Temperature Source Temporal Pulse Rate 78 76 Respiratory Rate 14 12 Blood Pressure 142/83 H 115/66 Blood Pressure Mean 102 82 Pulse Ox 98 94 Oxygen Delivery Method Room Air Room Air MDM MDM MDM Narrative Medical decision making narrative: Patient's work-up is unremarkable. He appears well. I believe he can be safely discharged home his sugar is now back to normal he is eating. I will discharge him if anything changes he is to return. He did give me the history of eating less than normal, just a piece of toast when he normally eats a full breakfast. Therefore I believe it is reasonable that that is the cause of his hypoglycemia and he has been stable in the emergency department. Lab Data Labs: Laboratory Results - last 24 hr 08/28/22 08/28/22 08/28/22 10:20 10:45 10:45 WBC 10.3 RBC 5.13 Hgb 15.2 Hct 47.5 MCV 92.6 MCH 29.6 MCHC 32.0 RDW Std Deviation 44.8 H RDW Coeff of Tomy 13.2 Plt Count 210 MPV 9.4 Immature Gran % (Auto) 0.500 Neut % (Auto) 79.7 H Lymph % (Auto) 11.6 L [place] % (Auto) 7.2 Eos % (Auto) 0.7 Baso % (Auto) 0.3 Absolute Neuts (auto) 8.3 H Absolute Lymphs (auto) 1.20 Nucleated RBC % 0 Sodium 142 Potassium 4.3 Chloride 112 H Carbon Dioxide 26.0 Anion Gap 4 L BUN 34 H Creatinine 1.44 H Estim Creat Clear Calc 57.40 Est GFR (MDRD) Af Amer 66 Est GFR (MDRD) Non-Af 54 L BUN/Creatinine Ratio 23.6 H Glucose 104 Calcium 9.4 Total Bilirubin 0.50 AST 26 ALT 54 Alkaline Phosphatase 174 H Total Protein 7.3 Albumin 3.5 Globulin 3.8 Albumin/Globulin Ratio 0.9 POC Glucose 118 H Discharge Plan Triage Chief Complaint: Hypoglycemia ED Provider: Vj Barroso Dx/Rx/DC Orders Clinical Impression: Diabetic foot ulcer, Hypoglycemia Instructions: Hypoglycemia (Low Blood Sugar) Prescriptions: No Action insulin glargine 100 unit/mL (3 mL) insulin pen 0 unit SC QHS Label Comments: Pt notes he takes night time insulin on a sliding scale aspirin 81 MG tablet,chewable 81 mg PO DAILY@0800 insulin lispro 100 UNIT/ML insulin pen See Protocol SQ ACHS Protocol: 6. Sliding Scale Insulin Custom Condition: mg/dl range Dose/Route: Number of Units Protocol Text: Custom Sliding Scale atorvastatin [Lipitor] 20 mg Tablet 20 mg PO QHS mycophenolate mofetil [CellCept] 250 mg Capsule 500 mg PO BID prednisone 5 mg Tablet 5 mg PO DAILY pantoprazole [Protonix] 20 mg Tablet,Delayed Release (Dr/Ec) 20 mg PO DAILY docusate sodium [Colace] 100 mg Capsule 100 mg PO DAILY bupropion HCl [Wellbutrin XL] 150 mg Tablet Extended Release 24 Hr 300 mg PO DAILY Envarsus XR 1 mg tablet extended release 24 hr 1 mg PO DAILY carvedilol 25 mg Tablet 25 mg PO BID cholecalciferol (vitamin D3) [Vitamin D3] 25 mcg (1,000 unit) Capsule 50 mcg PO QWEEK gabapentin 100 mg Tablet 100 mg PO QHS Primary Care Provider: Zaida Mcneil Referrals: Zaida Mcneil MD [Primary Care Provider] - 3-5 Days Disposition Disposition: Home, Self Care
[2022-08-28 10:46] LABS: Bedside Glucose 118 mg/dL (74-106)
[2022-08-28 11:06] LABS: ALB/GLOB Ratio 0.9 RATIO (0.9-2.4); AST(SGOT) 26 U/L (15-37); Alanine Aminotransfer ALT/SGPT 54 U/L (16-61); Albumin, Serum 3.5 g/dL (3.2-5.0); Alkaline Phosphatase 174 U/L (45-117); Anion Gap 4 (5-15); BUN 34 mg/dL (7-18); BUN/Creat Ratio 23.6 RATIO (10-20); Calcium,Total 9.4 mg/dL (8.5-10.1); Chloride 112 mmol/L (98-107); Creatinine, Serum 1.44 mg/dL (0.70-1.30); EST Glomerular Filtration Rate 54 mL/min (>60); Est Glom Filt Rate - Afr Amer 66 mL/min (>60); Globulin 3.8 g/dL (2.2-4.2); Glucose 104 mg/dL (74-106); Potassium 4.3 mmol/L (3.5-5.1); Protein, Total 7.3 g/dL (6.4-8.2); Sodium Level 142 mmol/L (136-145)
[2022-08-28 11:08] LABS: Absolute Neutrophil Count 8.3 X10^3/uL (2.0-7.7); Basophil# 0.03 X10^3/uL; Basophil% 0.3 % (0-1); Eosinophil# 0.07 X10^3/uL; Eosinophils% 0.7 % (0-5); Hematocrit 47.5 % (40-54); Hemoglobin 15.2 g/dL (13.0-16.5); Lymphocyte % 11.6 % (19-41); Mean Corpuscular Hgb 29.6 pg (27.0-32.0); Mean Corpuscular Volume 92.6 fL (80-94); Mean Platelet Vol. 9.4 fl (6.2-12.0); Monocyte# 0.74 X10^3/uL; Monocyte% 7.2 % (0-10); NRBC Flagged by Analyzer 0 % (0-5); Neutrophil # 8.25 X10^3/uL (2.7-7.7); Neutrophil % 79.7 % (47-70); Platelet Count 210 K/mm3 (150-450); RBC Distribution Width CV 13.2 % (11.6-14.6); RBC Distribution Width SD 44.8 fl (35.1-43.9); Red Blood Count 5.13 M/mm3 (4.6-6.2); White Blood Count 10.3 K/mm3 (4.4-11.0)
[2022-08-28 11:20] VITALS: BP 115/66; PULSE 76; RESP 12; O2SAT 94
== END 2022-08-28 11:35 | disposition home or self-care (01) ==
PROVIDERS: Emergency Provider Emergency Medicine; PCP Internal Medicine; Visit Provider Emergency Medicine
DX: E11.621 Type 2 diabetes mellitus with foot ulcer (principal); Z89.422 Acquired absence of other left toe(s); L97.522 Non-pressure chronic ulcer of other part of left foot with fat layer exposed; E11.649 Type 2 diabetes mellitus with hypoglycemia without coma; E11.22 Type 2 diabetes mellitus with diabetic chronic kidney disease; N18.5 Chronic kidney disease, stage 5; I25.10 Atherosclerotic heart disease of native coronary artery without angina pectoris; Z86.16 Personal history of COVID-19
CPT/HCPCS: 69210; 80053; 82962; 85025; 99183; 99285; A4216; G0277

== ENCOUNTER 2022-09-06 11:15 | Outpatient (RCR) | payer MEDICARE, MEDICAID, SELFPAY ==
[2022-08-09 00:26] VITALS: BP 103/60; PULSE 87; RESP 18; TEMP 36.4; BMI 34.2
[2022-08-09 08:16] LABS: Bedside Glucose 223 mg/dL (74-106)
--- NOTE | 2022-08-09 09:43 | HBO.PN.PCM_ITS ---
History of Present Illness Date of Service: 08/08/22 Chief Complaint: Osteomyelitis of the left foot; diabetic foot ulceration History of Wound: Patient is a 51-year-old male who presents to the wound care center for evaluation for hyperbaric oxygen therapy. He has been seeing Dr. 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 His ulcer is not making the progress that it should. He has a Gustafson stage III ulcer on his left foot. He uses a knee scooter. 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 There is interval development of osseous destruction of the head and distal diaphysis of the fourth metatarsal and base of the fourth proximal phalanx. Arterial study from 01/09/22, Right RANJAN - 1.19, Left RANJAN - NC, Left digital- brachial index is 0.67. The left digital-brachial index is mildly diminished. There is evidence of arterial calcification at ankle level on the left. Arterial flow appears normal at ankle level bilaterally, and at digital level on the right. There is evidence of mild arterial occlusive disease at digital level on the left. MRI of left lower extremity from 10/07/19 showed Marrow edema consistent osteomyelitis of the distal phalanges of the fourth and fifth toes. Soft tissue swelling. He has a history of DM Type II, last HgA1c 10.5 on 05/31/22, Kidney transplant one year ago, peripheral vascular disease, atherosclerotic heart disease, AMI, neuropathy, and GERD. He has received cardiac clearance from Dr. Oneill. Chest x-ray from 05/31/22 is normal. Today he denies fever, chills, nausea, vomiting. Patient has been having issues with his left TM, he was sent to ENT and an ear tube was place in the left ear only on 07/17/22. Patient has been approved for 30 treatment of hyperbaric oxygen therapy. Progress of Wound: Today is the 15th? treatment of hyperbaric oxygen therapy.? The patient is scheduled for 30 treatments total. Tolerance of hyperbaric oxygen therapy: Hyperbaric oxygen treatment was provided as per the facility's protocol at 2.0 BETO in 100% oxygen for 90 minutes without air breaks.? The patient tolerated hyperbaric oxygen well, without complications or complaints. Upon emergence of the hyperbaric chamber, the patient's vital signs remained stable. Objective Data Objective Data Vital Signs: Vital Signs Temp Pulse Resp BP 97.6 F L 87 18 103/60 08/09/22 00:26 08/09/22 00:26 08/09/22 00:26 08/09/22 00:26 Weight: 225 lb Body Mass Index (BMI) 34.2 Lab / Micro Data Labs: Laboratory Results - last 24 hr 08/09/22 07:54: POC Glucose 223 H Exam Physical Exam Const alert, oriented x3 and no apparent distress General Appearance: cooperative HEENT normocephalic HEENT Narrative: Tympanostomy tube present and patent left TM. Right TM clear. Head and Scalp: atraumatic Resp normal respiratory effort Effort and Inspection: able to speak in complete sentences Psych mental status grossly normal, thought process normal, cooperative, affect normal and speech normal Charges/Coding Wound Center CF Procedures HBO Supervision: [id number] Hyperbaric Oxygen; supervision Assessment/Plan Assessment/Plan (1) Osteomyelitis of metatarsal: CODE(S): M86.9 - Osteomyelitis, unspecified (2) 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 exposed: CODE(S): L97.522 - 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 exposed (3) Type 2 diabetes mellitus with diabetic polyneuropathy: CODE(S): E11.42 - Type 2 diabetes mellitus with diabetic polyneuropathy PLAN: Plan The patient appears to be tolerating hyperbaric oxygen therapy well, which will be continued as per the patient's medical plan. This note was generated with [employer] dictation software. It may contain incorrect words, spelling, and punctuation that were not noted in checking the note before signing.
[2022-08-09 10:32] VITALS: BP 125/75; PULSE 58; TEMP 36.1; BMI 34.2
[2022-08-09 10:36] LABS: Bedside Glucose 145 mg/dL (74-106)
--- NOTE | 2022-08-09 10:54 | PCM.WC.PN ---
History of Present Illness Date of Service: 08/09/22 Chief Complaint: Osteomyelitis of the left foot; diabetic foot ulceration History of Wound: Patient is a 51-year-old male who presents to the wound care center for evaluation for hyperbaric oxygen therapy. He has been seeing Dr. 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 His ulcer is not making the progress that it should. He has a Gustafson stage III ulcer on his left foot. He uses a knee scooter. 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 There is interval development of osseous destruction of the head and distal diaphysis of the fourth metatarsal and base of the fourth proximal phalanx. Arterial study from 01/09/22, Right RANJAN - 1.19, Left RANJAN - NC, Left digital-brachial index is 0.67. The left digital-brachial index is mildly diminished. There is evidence of arterial calcification at ankle level on the left. Arterial flow appears normal at ankle level bilaterally, and at digital level on the right. There is evidence of mild arterial occlusive disease at digital level on the left. MRI of left lower extremity from 10/07/19 showed Marrow edema consistent osteomyelitis of the distal phalanges of the fourth and fifth toes. Soft tissue swelling. He has a history of DM Type II, last HgA1c 10.5 on 05/31/22, Kidney transplant one year ago, peripheral vascular disease, atherosclerotic heart disease, AMI, neuropathy, and GERD. He has received cardiac clearance from Dr. Oneill. Chest x-ray from 05/31/22 is normal. Today he denies fever, chills, nausea, vomiting. Patient has been having issues with his left TM, he was sent to ENT and an ear tube was place in the left ear only on 07/17/22. Patient has been approved for 30 treatment of hyperbaric oxygen therapy. Progress of Wound: Today is the 15th? treatment of hyperbaric oxygen therapy.? The patient is scheduled for 30 treatments total. Tolerance of hyperbaric oxygen therapy: Hyperbaric oxygen treatment was provided as per the facility's protocol at 2.0 BETO in 100% oxygen for 90 minutes without air breaks.? The patient tolerated hyperbaric oxygen well, without complications or complaints. Upon emergence of the hyperbaric chamber, the patient's vital signs remained stable. 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 He states his wound is demonstrating great progress reducing in size. He has been changing the outer dressings to the left foot as needed.? He denies any constitutional symptoms.?He continues to deny any pain today.?He has no further complaints today. Objective Data Objective Data Vital Signs: Vital Signs Temp Pulse Resp BP 97.0 F L 58 L 18 125/75 H 08/09/22 10:32 08/09/22 10:32 08/09/22 00:26 08/09/22 10:32 Weight: 102.058 kg Body Mass Index (BMI) 34.2 Lab / Micro Data Labs: Laboratory Results - last 24 hr 08/09/22 07:54: POC Glucose 223 H 08/09/22 10:08: POC Glucose 145 H Physical Exam Narrative Patient is alert oriented to person, place and time.? Patient ambulates with assistance of a knee scooter on the left.? And diabetic shoe on the right. Vascular: There are atrophic changes of the skin such as thinning shiny taut appearance absent digital hair growth.? Pulses are grossly palpable 2 out of 4 dorsalis pedis and posterior tibial bilateral feet.? Mild +1 pitting edema to bilateral lower extremity. Neurologic: Light touch protective sensation completely absent to bilateral lower extremity. Dermatologic: Healed right hallux ulceration.?Digital wounds to left foot healed at this time.?Status post partial fifth ray amputation left foot with healthy granular wound at the distal aspect of the amputation site. Lateral fourth digit demonstrates healed blister with No signs of infection. Musculoskeletal: No gross wound forming deformity.?Muscular strength full to bilateral lower extremity compartments.? No crepitus or pain noted to the wound or periwound areas. Const alert, oriented x3 and no apparent distress General Appearance: cooperative HEENT normocephalic Eyes General Eye: normal appearance of both eyes Neck General: normal visual inspection Lymph Lymphatic: no lymphadenopathy noted and no lymphedema noted Resp normal respiratory effort Cardio regular rate and regular rhythm Extremity normal capillary refill, no joint enlargement, no calf tenderness and no pedal edema Skin no rashes or lesions noted, skin turgor normal and no jaundice Wound Narrative: Left foot: Partial fifth ray resection noted.? Wound site measures 2.8 cm x 2.0 cm x 0.1 cm.? There is healthy appearing skin about the ulcerative rim.?There is no erythema, no expressible purulent drainage, no malodor, no other localized signs of infection.? Wound demonstrates healthy granular layer with adequate tissue bleeding. Neuro moves all extremities Debridement Note Debridement Note Wound debrided: Distal lateral foot Laterality: Left Wound Grade/Stage: Gustafson stage III Type of Debridement: Excisional debridement Anesthesia Used: 5% Lidocaine Gel Depth: Down to and including healthy tissue and in the subcutaneous layer Percentage of wound debrided: 100 Instrument Used: 3mm curette Tissue Removed: Fibrous, devitalized subcutaneous, biofilm, slough Severity: Fat Layer Exposed Amount of bleeding with debridement: Mild Bleeding Controlled with: Compression and gauze Patient tolerated procedure: Patient tolerated procedure well Post-Debridement Measurements and Additional Note: Post-Debridement Measurements/Treatment - Nurse 1 - General Ulcer Assessment Start: 08/09/22 10:31 Freq: Status: Active Protocol: OSWALD.PAGE Activity Type Activity Date Activity User E-sign Co-sign Detail Recorded Client Recorded Date Recorded By Document 08/09/22 10:32 [id number] 08/09/22 10:34 JOE 08/09/22 10:32 - Today's Visit Information Type of service Follow-up 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 Any new allergies or adverse reactions No Had a fall/change in ADL's that may No increase risk of falls Signs or symptoms of abuse and/or No neglect since last visit Have you been in the hospital since your No last visit? Has dressing in place as prescribed Yes Has compression in place as prescribed N/A Has offloadiing in place as prescribed N/A Experienced any changes in pain level or No management Left Footwear Regular Shoe Right Footwear Regular Shoe Pain Scale: 0-10 Numeric Is Patient Pain Free? Yes WC - Nurse 1 - General Ulcer Measurement Start: 08/09/22 10:31 Freq: Status: Active Protocol: Activity Type Activity Date Activity User E-sign Co-sign Detail Recorded Client Recorded Date Recorded By Document 08/09/22 10:32 JOE [id number] 08/09/22 10:34 JOE 08/09/22 10:32 Wound Center Nurse 1 #10 LL FOOT -Current Size (cm) - Length 2.3 -Current Size (cm) - Width 1.9 -Current Size (cm) - Depth 0.1 -Total Square Cm 4.37 -Exudate Amt Small -Exudate Type Serosanguineous -Wound Margin Distinct, Outline Attached -Granulation Amt Medium (34-66%) -Granulation Quality [place] -Necrosis Amt None Present (0 %) -Texture (Dunia-wound Skin Appearance) Assessed, Scarring -Moisture ([place]-wound Skin Appearance) No Abnormality, Assessed -Color ([place]ia-wound Skin Appearance) No Abnormality, Assessed -Temperature ([place]-wound Skin No Abnormality Appearance) (Pt Warm) -Tenderness on Palpation ([place]-wound No Skin Appearance) -Ulcer Cleansing Soap and Water -Foul Odor after Cleansing No -Anesthetic Used 5% Lidocaine Gel Assessment/Plan Assessment/Plan (1) Type 2 diabetes mellitus with diabetic polyneuropathy: CODE(S): E11.42 - Type 2 diabetes mellitus with diabetic polyneuropathy (2) 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 POV #20 (DOS: 03/24/2022) POD #139 Left lower extremity: No edema noted. Fifth digit amputation noted. Patient has a hemoglobin A1c of 10.5%, this has remained unchanged from his last A1c in March.? I stressed again today continued diet modifications for proper glycemic control to aid in his healing and overall health.?He was encouraged to remain following with his podiatric medicine professor so that he may achieve a lower A1c. Infection: During surgical intervention 03/24/22 the tissues demonstrated normal integrity and were not easily dissectible through fascial planes with a finger as seen with typical necrotizing fasciitis cases.?He did however have soft tissue crepitus with foul odor consistent with a gas gangrene, confirmed by radiograph on 03/24/2022.? 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 WBC 16.3 with left shift prior to surgical intervention.?WBC currently within normal limits.? He is finished IV antibiotic course and PICC line removed. Sx Cultures: Culture of wound/ulceration &?Bone culture fifth toe/fifth metatarsal demonstrates staph epi, Enterococcus faecalis, Streptococcus mitis/oralis, Turicella otitidis, Enterococcus casseliflavius, Peptostreptococcus prevotil, Prevotella bivia.? Cultures post surgical clearance demonstrate no growth. Wound: Wound underwent debridement as noted in clinical panel above today. Healthy granular tissue noted with no localized signs of infection.? No purulent drainage noted, no malodor noted.? Wound is continuing to granulate in well. He underwent debridement of the necrotic 4th metatarsal head on 05/24/22.? Wound measures 2.8 cm x 2.0 cm x 0.1 cm.? He has resumed hyperbaric dives following tube placement. He was approved for epi fix graft.? Epi fix mesh graft #7 applied to the wound bed today. He is not to get the dressing wet and to leave the dressings clean, dry, and intact to the left foot.? No expressible purulent drainage noted.?Radiographs were ordered of the left foot 05/31/22. Radiographs demonstrate: Amputation of the fifth metatarsal at the level of the mid diaphysis.?There is interval development of osseous destruction of the base of the fourth proximal phalanx and distal fourth metatarsal suspicious of osteomyelitis.Further debridement was performed on 05/31/22 removing nonviable tissue/bone in the base of his proximal phalanx of the fourth digit.? There is continued improvement in the appearance of his wound today with continued reduction in size. He has finished oral antibiotic course. I will continue to monitor him for any progressing signs of infection.?He is aware that further surgical intervention may be required pending his progress. Dressings: Epi fix mesh graft, Adaptic touch and anchored with Steri-Strips with dry sterile dressing.? He was instructed to keep his dressings clean, dry, and intact to the left foot.?Continue to elevate the left lower extremity at all times of rest.? He was instructed that if his dressing falls off or gets removed prior to his next visit he is to return to [facility] wet-to-dry dressings.? He voices understanding of that. Patient is to remain nonweightbearing to the left lower extremity with assistance of a knee scooter Visiting nursing to assist in dressing changes to the left foot. The etiology of thickened toenails was briefly reviewed including fungus or microtrauma. The nails were debrided with a nail nipper after verbal consent was obtained without incident. The nails 1, 2, 3, 4, and 5 of the right foot and nails 1, 2, 3, and 4 of the left foot were debrided in length and thickness to reduce pressure, potential fungal load, and to prevent wound formation. The patient tolerated this well. The patient elects proceed with palliative care only at this time with the nails and will hold off on further work-up. To follow-up with the foot and ankle Center if needed in the future for this condition. He will return to the wound care center in 1 week for continued localized wound care and close monitoring. Note: [employer] speech recognition hand coper software was used to create portions of this document. Sound-alike and misspelled words, as well as other hand coper errors may be contained in the documentation.
[2022-08-09 11:24] VITALS: BP 103/57; BP 129/69; PULSE 75; PULSE 86; RESP 16; TEMP 36.4
[2022-08-10 08:10] LABS: Bedside Glucose 228 mg/dL (74-106)
[2022-08-10 09:03] VITALS: BP 140/82; BP 97/57; PULSE 77; PULSE 90; RESP 16; RESP 17; TEMP 36.3
[2022-08-10 10:26] LABS: Bedside Glucose 202 mg/dL (74-106)
--- NOTE | 2022-08-10 15:38 | PCM.HBO.PN ---
History of Present Illness Date of Service: 08/10/22 Chief Complaint: Osteomyelitis of the left foot; diabetic foot ulceration History of Wound: Patient is a 51-year-old male who presents to the wound care center for evaluation for hyperbaric oxygen therapy. He has been seeing Dr. 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 His ulcer is not making the progress that it should. He has a Gustafson stage III ulcer on his left foot. He uses a knee scooter. 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 There is interval development of osseous destruction of the head and distal diaphysis of the fourth metatarsal and base of the fourth proximal phalanx. Arterial study from 01/09/22, Right RANJAN - 1.19, Left RANJAN - NC, Left digital-brachial index is 0.67. The left digital-brachial index is mildly diminished. There is evidence of arterial calcification at ankle level on the left. Arterial flow appears normal at ankle level bilaterally, and at digital level on the right. There is evidence of mild arterial occlusive disease at digital level on the left. MRI of left lower extremity from 10/07/19 showed Marrow edema consistent osteomyelitis of the distal phalanges of the fourth and fifth toes. Soft tissue swelling. He has a history of DM Type II, last HgA1c 10.5 on 05/31/22, Kidney transplant one year ago, peripheral vascular disease, atherosclerotic heart disease, AMI, neuropathy, and GERD. He has received cardiac clearance from Dr. Oneill. Chest x-ray from 05/31/22 is normal. Today he denies fever, chills, nausea, vomiting. Patient has been having issues with his left TM, he was sent to ENT and an ear tube was place in the left ear only on 07/17/22. Patient has been approved for 30 treatment of hyperbaric oxygen therapy. Progress of Wound: Today is the 16th? treatment of hyperbaric oxygen therapy.? The patient is scheduled for 30 treatments total. Tolerance of hyperbaric oxygen therapy: Hyperbaric oxygen treatment was provided as per the facility's protocol at 2.0 BETO in 100% oxygen for 90 minutes without air breaks.? The patient tolerated hyperbaric oxygen well, without complications or complaints. Upon emergence of the hyperbaric chamber, the patient's vital signs remained stable. Objective Data Objective Data Vital Signs: Vital Signs Temp Pulse Resp BP 97.4 F L 90 16 97/57 L 08/10/22 09:03 08/10/22 09:03 08/10/22 09:03 08/10/22 09:03 Weight: 102.058 kg Body Mass Index (BMI) 34.2 Lab / Micro Data Labs: Laboratory Results - last 24 hr 08/10/22 07:52: POC Glucose 228 H 08/10/22 09:59: POC Glucose 202 H Exam Nursing Assessment and Debridement Post-Debridement Measurements and Additional Note: Post-Debridement Measurements/Treatment - Nurse 1 - General Ulcer Assessment Start: 08/09/22 10:31 Freq: Status: Active Protocol: HOLLY Activity Type Activity Date Activity User E-sign Co-sign Detail Recorded Client Recorded Date Recorded By Document 08/09/22 10:32 JOE [id number] 08/09/22 10:34 JOE 08/09/22 10:32 - Today's Visit Information Type of service Follow-up Visit (Physician/JAVA DEVELOPER WITH SECURITY CLEARANCE ) Arrival Mode Ambulatory Patient Identification Verified (Name & Yes ) Height and Weight Body Mass Index (BMI) 34.2 BMI Classification Obese Vital Signs Temperature (97.8 F-99.1 F) 97.0 F L Temperature Source Temporal Pulse Rate (60-100) 58 L Pulse Location Monitor Blood Pressure (90/60-120/80) 125/75 H Blood Pressure Mean (mm Hg) 91 Source Monitor Position Semi-Fowlers Blood Pressure Location Right Arm History Since Last Visit- (Skip if this is Patient's initial visit) Have you changed medications since your No last visit? Any new allergies or adverse reactions No Had a fall/change in ADL's that may No increase risk of falls Signs or symptoms of abuse and/or No neglect since last visit Have you been in the hospital since your No last visit? Has dressing in place as prescribed Yes Has compression in place as prescribed N/A Has offloadiing in place as prescribed N/A Experienced any changes in pain level or No management Left Footwear Regular Shoe Right Footwear Regular Shoe Pain Scale: 0-10 Numeric Is Patient Pain Free? Yes - Nurse 1 - General Ulcer Measurement Start: 08/09/22 10:31 Freq: Status: Active Protocol: Activity Type Activity Date Activity User E-sign Co-sign Detail Recorded Client Recorded Date Recorded By Document 08/09/22 10:32 KR [id number] 08/09/22 10:34 JOE 08/09/22 10:32 Wound Center Nurse 1 #10 LL FOOT -Current Size (cm) - Length 2.3 -Current Size (cm) - Width 1.9 -Current Size (cm) - Depth 0.1 -Total Square Cm 4.37 -Exudate Amt Small -Exudate Type Serosanguineous -Wound Margin Distinct, Outline Attached -Granulation Amt Medium (34-66%) -Granulation Quality [place] -Necrosis Amt None Present (0 %) -Texture ([place]ia-wound Skin Appearance) Assessed, Scarring -Moisture ([place]-wound Skin Appearance) No Abnormality, Assessed -Color ([place]-wound Skin Appearance) No Abnormality, Assessed -Temperature ([place]-wound Skin No Abnormality Appearance) (Pt Warm) -Tenderness on Palpation ([place]-wound No Skin Appearance) -Ulcer Cleansing Soap and Water -Foul Odor after Cleansing No -Anesthetic Used 5% Lidocaine Gel WC - Nurse 2 - General Ulcer CM Notes Start: 08/09/22 10:31 Freq: Status: Active Protocol: Activity Type Activity Date Activity User E-sign Co-sign Detail Recorded Client Recorded Date Recorded By Document 08/09/22 12:44 JAZZ [id number] 08/09/22 12:46 PL 08/09/22 12:44 Wound Center Nurse 2 -Time 11:02 -Correct Patient Yes -Correct Side, Site, Position Yes -Correct Procedure Yes -Procedure Performed Yes -Type of Procedure Debridement -Clinical Debridement Subcutaneous -Tissue Removed Subcutaneous -Post Debridement (cm) - Length 2.2 -Post Debridement (cm) - Width 1.8 -Post Debridement (cm) - Depth 0.1 -Total Square (Post) (cm) 3.96 -Area of Debridement (cm) - Length 2.2 -Area of Debridement (cm) - Width 1.8 -Total Square (Area) (cm) 3.96 -Tunneling No -Undermining/Tunneling No -Circular Undermining No -Wound/Ulcer Outcome Not Healed -Ulcer Cleansing Rinsed/ Irrigated with Saline -Foul Odor after Cleansing No -Bioengineered Tissue Yes -Type of Bioengineered Tissue Epifix -Expiration Date 02/07/27 -Product Lot Number [id number] -Percent Used 100 -Bleeding Controlled with Pressure -Treatment Response Procedure Tolerated Well -Debridement - Subq, 1st 20sq cm No -Apply Skin Sub - 1st 25 sq cm - Feet 1 -Epifix (per sq cm) 4 Pain Scale: 0-10 Numeric Is Patient Pain Free? Yes - Nurse 3 - General Ulcer D/C NN Start: 08/09/22 10:31 Freq: Status: Active Protocol: Activity Type Activity Date Activity User E-sign Co-sign Detail Recorded Client Recorded Date Recorded By Document 08/09/22 12:26 JOE [id number] 08/09/22 12:26 JOE 08/09/22 12:26 Wound Care Nurse 3 #10 LL FOOT -Primary Dressing Covered/Secured with Dry Gauze,Dry Gauze & Roll Gauze,Secured with Tape Left -Compression Wrap [place] Wrap Pain Scale: 0-10 Numeric Is Patient Pain Free? Yes - Visit Discharge Discharge Condition Stable Ambulatory Status Ambulatory Transportation Private Auto Assessment/Plan Assessment/Plan (1) Diabetic foot ulcer: CODE(S): E11.621 - Type 2 diabetes mellitus with foot ulcer; L97.509 - Non-pressure chronic ulcer of other part of unspecified foot with unspecified severity QUALIFIERS: Diabetes mellitus type: type 2 Laterality: left Non-pressure ulcer stage: with necrosis of bone (2) Osteomyelitis of metatarsal: CODE(S): M86.9 - Osteomyelitis, unspecified (3) Type 2 diabetes mellitus with diabetic polyneuropathy: CODE(S): E11.42 - Type 2 diabetes mellitus with diabetic polyneuropathy (4) Diabetic ulcer of foot associated with diabetes mellitus due to underlying condition, with necrosis of bone: CODE(S): E08.621 - Diabetes mellitus due to underlying condition with foot ulcer; L97.504 - Non-pressure chronic ulcer of other part of unspecified foot with necrosis of bone PLAN: Plan The patient appears to be tolerating hyperbaric oxygen therapy well, which will be continued as per their medical treatment plan.
[2022-08-14 08:06] LABS: Bedside Glucose 270 mg/dL (74-106)
[2022-08-14 08:21] LABS: Bedside Glucose 278 mg/dL (74-106)
--- NOTE | 2022-08-14 08:27 | WC ---
Pt blood sugar was 278 this morning. Aureliano was notified and dive was cancelled.
[2022-08-15 08:06] LABS: Bedside Glucose 218 mg/dL (74-106)
[2022-08-15 09:33] VITALS: BP 143/87; BP 93/53; PULSE 78; PULSE 90; RESP 17; TEMP 36.7
--- NOTE | 2022-08-15 10:19 | HBO.PN.PCM_ITS ---
History of Present Illness Date of Service: 08/15/22 Chief Complaint: Osteomyelitis of the left foot; diabetic foot ulceration History of Wound: Patient is a 51-year-old male who presents to the wound care center for evaluation for hyperbaric oxygen therapy. He has been seeing Dr. 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 His ulcer is not making the progress that it should. He has a Gustafson stage III ulcer on his left foot. He uses a knee scooter. 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 There is interval development of osseous destruction of the head and distal diaphysis of the fourth metatarsal and base of the fourth proximal phalanx. Arterial study from 01/09/22, Right RANJAN - 1.19, Left RANJAN - NC, Left digital- brachial index is 0.67. The left digital-brachial index is mildly diminished. There is evidence of arterial calcification at ankle level on the left. Arterial flow appears normal at ankle level bilaterally, and at digital level on the right. There is evidence of mild arterial occlusive disease at digital level on the left. MRI of left lower extremity from 10/07/19 showed Marrow edema consistent osteomyelitis of the distal phalanges of the fourth and fifth toes. Soft tissue swelling. He has a history of DM Type II, last HgA1c 10.5 on 05/31/22, Kidney transplant one year ago, peripheral vascular disease, atherosclerotic heart disease, AMI, neuropathy, and GERD. He has received cardiac clearance from Dr. Oneill. Chest x-ray from 05/31/22 is normal. Today he denies fever, chills, nausea, vomiting. Patient has been having issues with his left TM, he was sent to ENT and an ear tube was place in the left ear only on 07/17/22. Patient has been approved for 30 treatment of hyperbaric oxygen therapy. Progress of Wound: Today is the 17th? treatment of hyperbaric oxygen therapy.? The patient is scheduled for 30 treatments total. Tolerance of hyperbaric oxygen therapy: Hyperbaric oxygen treatment was provided as per the facility's protocol at 2.0 BETO in 100% oxygen for 90 minutes without air breaks.? The patient tolerated hyperbaric oxygen well, without complications or complaints. Upon emergence of the hyperbaric chamber, the patient's vital signs remained stable. Objective Data Objective Data Vital Signs: Vital Signs Temp Pulse Resp BP 97.4 F L 90 16 97/57 L 08/10/22 09:03 08/10/22 09:03 08/10/22 09:03 08/10/22 09:03 Weight: 225 lb Body Mass Index (BMI) 34.2 Lab / Micro Data Labs: Laboratory Results - last 24 hr 08/15/22 07:49: POC Glucose 218 H Exam Physical Exam Const alert, oriented x3 and no apparent distress HEENT HEENT Narrative: Tympanostomy tube present and patent left TM Psych mental status grossly normal, thought process normal, cooperative, affect normal and speech normal Assessment/Plan Assessment/Plan (1) Osteomyelitis of metatarsal: CODE(S): M86.9 - Osteomyelitis, unspecified (2) 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 exposed: CODE(S): L97.522 - 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 exposed (3) Type 2 diabetes mellitus with diabetic polyneuropathy: CODE(S): E11.42 - Type 2 diabetes mellitus with diabetic polyneuropathy PLAN: Plan The patient appears to be tolerating hyperbaric oxygen therapy well, which will be continued as per the patient's medical plan.
[2022-08-15 10:30] LABS: Bedside Glucose 178 mg/dL (74-106)
[2022-08-16 08:00] LABS: Bedside Glucose 223 mg/dL (74-106)
--- NOTE | 2022-08-16 08:43 | HBO.PN.PCM_ITS ---
History of Present Illness Date of Service: 08/16/22 Chief Complaint: Osteomyelitis of the left foot; diabetic foot ulceration History of Wound: Patient is a 51-year-old male who presents to the wound care center for evaluation for hyperbaric oxygen therapy. He has been seeing Dr. 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 His ulcer is not making the progress that it should. He has a Gustafson stage III ulcer on his left foot. He uses a knee scooter. 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 There is interval development of osseous destruction of the head and distal diaphysis of the fourth metatarsal and base of the fourth proximal phalanx. Arterial study from 01/09/22, Right RANJAN - 1.19, Left RANJAN - NC, Left digital- brachial index is 0.67. The left digital-brachial index is mildly diminished. There is evidence of arterial calcification at ankle level on the left. Arterial flow appears normal at ankle level bilaterally, and at digital level on the right. There is evidence of mild arterial occlusive disease at digital level on the left. MRI of left lower extremity from 10/07/19 showed Marrow edema consistent osteomyelitis of the distal phalanges of the fourth and fifth toes. Soft tissue swelling. He has a history of DM Type II, last HgA1c 10.5 on 05/31/22, Kidney transplant one year ago, peripheral vascular disease, atherosclerotic heart disease, AMI, neuropathy, and GERD. He has received cardiac clearance from Dr. Oneill. Chest x-ray from 05/31/22 is normal. Today he denies fever, chills, nausea, vomiting. Patient has been having issues with his left TM, he was sent to ENT and an ear tube was place in the left ear only on 07/17/22. Patient has been approved for 30 treatment of hyperbaric oxygen therapy. Progress of Wound: Today is the 18th? treatment of hyperbaric oxygen therapy.? The patient is scheduled for 30 treatments total. Tolerance of hyperbaric oxygen therapy: Hyperbaric oxygen treatment was provided as per the facility's protocol at 2.0 BETO in 100% oxygen for 90 minutes without air breaks.? The patient tolerated hyperbaric oxygen well, without complications or complaints. Upon emergence of the hyperbaric chamber, the patient's vital signs remained stable. Objective Data Objective Data Vital Signs: Vital Signs Temp Pulse Resp BP 98.0 F 90 17 93/53 L 08/15/22 09:33 08/15/22 09:33 08/15/22 09:33 08/15/22 09:33 Weight: 225 lb Body Mass Index (BMI) 34.2 Lab / Micro Data Labs: Laboratory Results - last 24 hr 08/15/22 10:11: POC Glucose 178 H 08/16/22 07:43: POC Glucose 223 H Exam Physical Exam Const alert, oriented x3 and no apparent distress HEENT HEENT Narrative: Tympanostomy tube present and patent left TM Psych mental status grossly normal, thought process normal, cooperative, affect normal and speech normal Assessment/Plan Assessment/Plan (1) Osteomyelitis of metatarsal: CODE(S): M86.9 - Osteomyelitis, unspecified (2) 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 exposed: CODE(S): L97.522 - 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 exposed (3) Type 2 diabetes mellitus with diabetic polyneuropathy: CODE(S): E11.42 - Type 2 diabetes mellitus with diabetic polyneuropathy PLAN: Plan The patient appears to be tolerating hyperbaric oxygen therapy well, which will be continued as per the patient's medical plan.
[2022-08-16 10:00] VITALS: BMI 34.2
--- NOTE | 2022-08-16 10:00 | PN.PCM_ITS ---
History of Present Illness Date of Service: 08/16/22 Chief Complaint: Osteomyelitis of the left foot; diabetic foot ulceration History of Wound: Patient is a 51-year-old male who presents to the wound care center for evaluation for hyperbaric oxygen therapy. He has been seeing Dr. 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 His ulcer is not making the progress that it should. He has a Gustafson stage III ulcer on his left foot. He uses a knee scooter. 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 There is interval development of osseous destruction of the head and distal diaphysis of the fourth metatarsal and base of the fourth proximal phalanx. Arterial study from 01/09/22, Right RANJAN - 1.19, Left RANJAN - NC, Left digital- brachial index is 0.67. The left digital-brachial index is mildly diminished. There is evidence of arterial calcification at ankle level on the left. Arterial flow appears normal at ankle level bilaterally, and at digital level on the right. There is evidence of mild arterial occlusive disease at digital level on the left. MRI of left lower extremity from 10/07/19 showed Marrow edema consistent osteomyelitis of the distal phalanges of the fourth and fifth toes. Soft tissue swelling. He has a history of DM Type II, last HgA1c 10.5 on 05/31/22, Kidney transplant one year ago, peripheral vascular disease, atherosclerotic heart disease, AMI, neuropathy, and GERD. He has received cardiac clearance from Dr. Oneill. Chest x-ray from 05/31/22 is normal. Today he denies fever, chills, nausea, vomiting. Patient has been having issues with his left TM, he was sent to ENT and an ear tube was place in the left ear only on 07/17/22. Patient has been approved for 30 treatment of hyperbaric oxygen therapy. Progress of Wound: Today is the 18th? treatment of hyperbaric oxygen therapy.? The patient is scheduled for 30 treatments total. Tolerance of hyperbaric oxygen therapy: Hyperbaric oxygen treatment was provided as per the facility's protocol at 2.0 BETO in 100% oxygen for 90 minutes without air breaks.? The patient tolerated hyperbaric oxygen well, without complications or complaints. Upon emergence of the hyperbaric chamber, the patient's vital signs remained stable. 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 He is pleased with his progress with wound reducing in size. He has been changing the outer dressings to the left foot as needed.? He denies any constitutional symptoms.?He continues to deny any pain today.?He has no further complaints today. Objective Data Objective Data Vital Signs: Vital Signs Temp Pulse Resp BP 98.0 F 90 17 93/53 L 08/15/22 09:33 08/15/22 09:33 08/15/22 09:33 08/15/22 09:33 Weight: 102.058 kg Body Mass Index (BMI) 34.2 Lab / Micro Data Labs: Laboratory Results - last 24 hr 08/15/22 10:11: POC Glucose 178 H 08/16/22 07:43: POC Glucose 223 H Physical Exam Narrative Patient is alert oriented to person, place and time.? Patient ambulates with assistance of a knee scooter on the left.? And diabetic shoe on the right. Vascular: There are atrophic changes of the skin such as thinning shiny taut appearance absent digital hair growth.? Pulses are grossly palpable 2 out of 4 dorsalis pedis and posterior tibial bilateral feet.? Mild +1 pitting edema to bilateral lower extremity. Neurologic: Light touch protective sensation completely absent to bilateral lower extremity. Dermatologic: Healed right hallux ulceration.?Digital wounds to left foot healed at this time.?Status post partial fifth ray amputation left foot with healthy granular wound at the distal aspect of the amputation site. Lateral fourth digit demonstrates healed blister with No signs of infection. Musculoskeletal: No gross wound forming deformity.?Muscular strength full to bilateral lower extremity compartments.? No crepitus or pain noted to the wound or periwound areas. Const alert, oriented x3 and no apparent distress General Appearance: cooperative HEENT normocephalic Eyes General Eye: normal appearance of both eyes Neck General: normal visual inspection Lymph Lymphatic: no lymphadenopathy noted and no lymphedema noted Resp normal respiratory effort Cardio regular rate and regular rhythm Extremity normal capillary refill, no joint enlargement, no calf tenderness and no pedal edema Skin no rashes or lesions noted, skin turgor normal and no jaundice Wound Narrative: Left foot: Partial fifth ray resection noted.? Wound site measures 2.0 cm x 1.8 cm x 0.1 cm.? There is healthy appearing skin about the ulcerative rim.?There is no erythema, no expressible purulent drainage, no malodor, no other localized signs of infection.? Wound demonstrates healthy granular layer with adequate tissue bleeding. Neuro moves all extremities Debridement Note Debridement Note Wound debrided: Left lateral foot Laterality: Left Wound Grade/Stage: Gustafson stage III Type of Debridement: Selective debridement Anesthesia Used: 5% Lidocaine Gel Depth: Down to and including healthy tissue and in the subcutaneous layer Percentage of wound debrided: 100 Instrument Used: 3mm curette Tissue Removed: Fibrous, devitalized subcutaneous, biofilm, slough Severity: Fat Layer Exposed Amount of bleeding with debridement: Mild Bleeding Controlled with: Compression and gauze Patient tolerated procedure: Patient tolerated procedure well Post-Debridement Measurements and Additional Note: Post-Debridement Measurements/Treatment - Nurse 1 - General Ulcer Assessment Start: 08/09/22 10:31 Freq: Status: Active Protocol: [email or web address] Activity Type Activity Date Activity User E-sign Co-sign Detail Recorded Client Recorded Date Recorded By Document 08/09/22 10:32 [id number] 08/09/22 10:34 JOE 08/09/22 10:32 - Today's Visit Information Type of service Follow-up Visit (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 Any new allergies or adverse reactions No Had a fall/change in ADL's that may No increase risk of falls Signs or symptoms of abuse and/or No neglect since last visit Have you been in the hospital since your No last visit? Has dressing in place as prescribed Yes Has compression in place as prescribed N/A Has offloadiing in place as prescribed N/A Experienced any changes in pain level or No management Left Footwear Regular Shoe Right Footwear Regular Shoe Pain Scale: 0-10 Numeric Is Patient Pain Free? Yes WC - Nurse 1 - General Ulcer Measurement Start: 08/09/22 10:31 Freq: Status: Active Protocol: Activity Type Activity Date Activity User E-sign Co-sign Detail Recorded Client Recorded Date Recorded By Document 08/09/22 10:32 JOE [id number] 08/09/22 10:34 KR 08/09/22 10:32 Wound Center Nurse 1 #10 LL FOOT -Current Size (cm) - Length 2.3 -Current Size (cm) - Width 1.9 -Current Size (cm) - Depth 0.1 -Total Square Cm 4.37 -Exudate Amt Small -Exudate Type Serosanguineous -Wound Margin Distinct, Outline Attached -Granulation Amt Medium (34-66%) -Granulation Quality Candor -Necrosis Amt None Present (0 %) -Texture (Dunia-wound Skin Appearance) Assessed, Scarring -Moisture (Dunia-wound Skin Appearance) No Abnormality, Assessed -Color (Dunia-wound Skin Appearance) No Abnormality, Assessed -Temperature (Dunia-wound Skin No Abnormality Appearance) (Pt Warm) -Tenderness on Palpation (Dunia-wound No Skin Appearance) -Ulcer Cleansing Soap and Water -Foul Odor after Cleansing No -Anesthetic Used 5% Lidocaine Gel WC - Nurse 2 - General Ulcer CM Notes Start: 08/09/22 10:31 Freq: Status: Active Protocol: Activity Type Activity Date Activity User E-sign Co-sign Detail Recorded Client Recorded Date Recorded By Document 08/09/22 12:44 PL [id number] 08/09/22 12:46 PL 08/09/22 12:44 Wound Center Nurse 2 -Time 11:02 -Correct Patient Yes -Correct Side, Site, Position Yes -Correct Procedure Yes -Procedure Performed Yes -Type of Procedure Debridement -Clinical Debridement Subcutaneous -Tissue Removed Subcutaneous -Post Debridement (cm) - Length 2.2 -Post Debridement (cm) - Width 1.8 -Post Debridement (cm) - Depth 0.1 -Total Square (Post) (cm) 3.96 -Area of Debridement (cm) - Length 2.2 -Area of Debridement (cm) - Width 1.8 -Total Square (Area) (cm) 3.96 -Tunneling No -Undermining/Tunneling No -Circular Undermining No -Wound/Ulcer Outcome Not Healed -Ulcer Cleansing Rinsed/ Irrigated with Saline -Foul Odor after Cleansing No -Bioengineered Tissue Yes -Type of Bioengineered Tissue Epifix -Expiration Date 02/07/27 -Product Lot Number [id number] -Percent Used 100 -Bleeding Controlled with Pressure -Treatment Response Procedure Tolerated Well -Debridement - Subq, 1st 20sq cm No -Apply Skin Sub - 1st 25 sq cm - Feet 1 -Epifix (per sq cm) 4 Pain Scale: 0-10 Numeric Is Patient Pain Free? Yes - Nurse 3 - General Ulcer D/C NN Start: 08/09/22 10:31 Freq: Status: Active Protocol: Activity Type Activity Date Activity User E-sign Co-sign Detail Recorded Client Recorded Date Recorded By Document 08/09/22 12:26 JOE [id number] 08/09/22 12:26 JOE 08/09/22 12:26 Wound Care Nurse 3 #10 LL FOOT -Primary Dressing Covered/Secured with Dry Gauze,Dry Gauze & Roll Gauze,Secured with Tape Left -Compression Wrap Kirill Wrap Pain Scale: 0-10 Numeric Is Patient Pain Free? 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 POV #21 (DOS: 03/24/2022) POD #146 Left lower extremity: No edema noted. Fifth digit amputation noted. Patient has a hemoglobin A1c of 10.5%, this has remained unchanged from his last A1c in March.? 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 Infection: During surgical intervention 03/24/22 the tissues demonstrated normal integrity and were not easily dissectible through fascial planes with a finger as seen with typical necrotizing fasciitis cases.?He did however have soft tissue crepitus with foul odor consistent with a gas gangrene, confirmed by radiograph on 03/24/2022.? 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 WBC 16.3 with left shift prior to surgical intervention.?WBC currently within normal limits.? He is finished IV antibiotic course and PICC line removed. Sx Cultures: Culture of wound/ulceration &?Bone culture fifth toe/fifth metatarsal demonstrates staph epi, Enterococcus faecalis, Streptococcus mitis/oralis, Turicella otitidis, Enterococcus casseliflavius, Peptostreptococcus prevotil, Prevotella bivia.? Cultures post surgical clearance demonstrate no growth. Wound: Wound underwent debridement as noted in clinical panel above today. Healthy granular tissue noted with no localized signs of infection.? No purulent drainage noted, no malodor noted.? Wound is continuing to granulate in well. He underwent debridement of the necrotic 4th metatarsal head on 05/24/22.?Radiographs were ordered of the left foot 05/31/22. Radiographs demonstrate: Amputation of the fifth metatarsal at the level of the mid diaphysis.?There is interval development of osseous destruction of the base of the fourth proximal phalanx and distal fourth metatarsal suspicious of osteomyelitis.Further debridement was performed on 05/31/22 removing nonviable tissue/bone in the base of his proximal phalanx of the fourth digit.?Wound measures 2.0 cm x 1.8 cm x 0.1 cm.? He has resumed hyperbaric dives following tube placement. He was approved for epi fix graft.? Epi fix mesh graft #8 applied to the wound bed today. He is not to get the dressing wet and to leave the dressings clean, dry, and intact to the left foot.? No expressible purulent drainage noted.?There is continued improvement in the appearance of his wound today with continued reduction in size. He has finished oral antibiotic course. I will continue to monitor him for any progressing signs of infection.?He is aware that further surgical intervention may be required pending his progress. Dressings: Epi fix mesh graft, Adaptic touch and anchored with Steri-Strips with dry sterile dressing.? He was instructed to keep his dressings clean, dry, and intact to the left foot.?Continue to elevate the left lower extremity at all times of rest.? He was instructed that if his dressing falls off or gets removed prior to his next visit he is to return to [facility] wet-to-dry dressings.? He voices understanding of that. Patient is to remain nonweightbearing to the left lower extremity with a ssistance of a knee scooter. He may be partial weight bearing to Left heel for bathroom privileges. Visiting nursing to assist in dressing changes to the left foot. He will return to the wound care center in 1 week for continued localized wound care and close monitoring. Note: [employer] speech recognition lithopress operator software was used to create portions of this document. Sound-alike and misspelled words, as well as other lithopress operator errors may be contained in the documentation.
[2022-08-16 10:10] LABS: Bedside Glucose 179 mg/dL (74-106)
[2022-08-16 11:30] VITALS: BP 111/64; BP 163/80; PULSE 77; PULSE 87; RESP 17; RESP 18; TEMP 35.9; TEMP 36.2
[2022-08-17 08:05] LABS: Bedside Glucose 146 mg/dL (74-106)
[2022-08-17 09:31] VITALS: BP 107/64; BP 142/82; PULSE 78; PULSE 85; RESP 16; RESP 17; TEMP 36.2
[2022-08-17 10:16] LABS: Bedside Glucose 168 mg/dL (74-106)
--- NOTE | 2022-08-17 13:55 | HBO.PN.PCM_ITS ---
History of Present Illness Date of Service: 08/17/22 Chief Complaint: Osteomyelitis of the left foot; diabetic foot ulceration History of Wound: Patient is a 51-year-old male who presents to the wound care center for evaluation for hyperbaric oxygen therapy. He has been seeing Dr. 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 His ulcer is not making the progress that it should. He has a Gustafson stage III ulcer on his left foot. He uses a knee scooter. 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 There is interval development of osseous destruction of the head and distal diaphysis of the fourth metatarsal and base of the fourth proximal phalanx. Arterial study from 01/09/22, Right RANJAN - 1.19, Left RANJAN - NC, Left digital- brachial index is 0.67. The left digital-brachial index is mildly diminished. There is evidence of arterial calcification at ankle level on the left. Arterial flow appears normal at ankle level bilaterally, and at digital level on the right. There is evidence of mild arterial occlusive disease at digital level on the left. MRI of left lower extremity from 10/07/19 showed Marrow edema consistent osteomyelitis of the distal phalanges of the fourth and fifth toes. Soft tissue swelling. He has a history of DM Type II, last HgA1c 10.5 on 05/31/22, Kidney transplant one year ago, peripheral vascular disease, atherosclerotic heart disease, AMI, neuropathy, and GERD. He has received cardiac clearance from Dr. Oneill. Chest x-ray from 05/31/22 is normal. Today he denies fever, chills, nausea, vomiting. Patient has been having issues with his left TM, he was sent to ENT and an ear tube was place in the left ear only on 07/17/22. Patient has been approved for 30 treatment of hyperbaric oxygen therapy. Progress of Wound: Today is the ? treatment of hyperbaric oxygen therapy.? The patient is scheduled for 30 treatments total. Tolerance of hyperbaric oxygen therapy: Hyperbaric oxygen treatment was provided as per the facility's protocol at 2.0 BETO in 100% oxygen for 90 minutes without air breaks.? The patient tolerated hyperbaric oxygen well, without complications or complaints. Upon emergence of the hyperbaric chamber, the patient's vital signs remained stable. Objective Data Objective Data Vital Signs: Vital Signs Temp Pulse Resp BP 97.1 F L 85 17 107/64 08/17/22 09:31 08/17/22 09:31 12 09:31 08/17/22 09:31 Weight: 102.058 kg Body Mass Index (BMI) 34.2 Lab / Micro Data Labs: Laboratory Results - last 24 hr 08/17/22 07:46: POC Glucose 146 H 08/17/22 09:56: POC Glucose 168 H Exam Nursing Assessment and Debridement Post-Debridement Measurements and Additional Note: Post-Debridement Measurements/Treatment - Nurse 1 - General Ulcer Assessment Start: 08/09/22 10:31 Freq: Status: Active Protocol: HOLLY Activity Type Activity Date Activity User E-sign Co-sign Detail Recorded Client Recorded Date Recorded By Document 08/16/22 10:00 [facility] [id number] 08/16/22 10:05 [facility] 08/16/22 10:00 - Today's Visit Information Type of service Follow-up Visit (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 Any new allergies or adverse reactions No Had a fall/change in ADL's that may No increase risk of falls Signs or symptoms of abuse and/or No neglect since last visit Have you been in the hospital since your No last visit? Has dressing in place as prescribed Yes Has compression in place as prescribed Yes Has offloadiing in place as prescribed Yes Experienced any changes in pain level or No management Left Footwear Surgical Shoe with pressure relief insole Right Footwear Regular Shoe Pain Scale: 0-10 Numeric Is Patient Pain Free? Yes - Nurse 1 - General Ulcer Measurement Start: 08/09/22 10:31 Freq: Status: Active Protocol: Activity Type Activity Date Activity User E-sign Co-sign Detail Recorded Client Recorded Date Recorded By Document 08/16/22 10:00 [facility] [id number] 08/16/22 10:05 [facility] 08/16/22 10:00 Wound Center Nurse 1 #10 LL FOOT -Combined with other wound No -Current Size (cm) - Length 2 -Current Size (cm) - Width 1.6 -Current Size (cm) - Depth 0.1 -Total Square Cm 3.2 -Date of Last Picture (Recall this 08/16/22 field) -Photo Taken Yes -Epithelialization Small 1-33% -Tunneling No -Undermining/Tunneling No -Circular Undermining No -Exudate Amt Medium -Exudate Type Serosanguineous -Wound Margin Distinct, Outline Attached -Granulation Amt Large (67-100%) -Granulation Quality Red -Slough/Fibrin Yes -Necrosis Amt Small (1-33%) -Necrotic Tissue Type Adherent Slough -Texture (Dunia-wound Skin Appearance) Assessed -Moisture ([place]-wound Skin Appearance) Assessed, Maceration -Color ([place]ia-wound Skin Appearance) Assessed, Erythema -Temperature ([place]-wound Skin No Abnormality Appearance) (Pt Warm) -Tenderness on Palpation ([place]ia-wound No Skin Appearance) -Ulcer Cleansing Soap and Water -Foul Odor after Cleansing No -Anesthetic Used 5% Lidocaine Gel WC - Nurse 2 - General Ulcer CM Notes Start: 08/09/22 10:31 Freq: Status: Active Protocol: Activity Type Activity Date Activity User E-sign Co-sign Detail Recorded Client Recorded Date Recorded By Document 08/16/22 13:44 PL [id number] 08/16/22 13:47 PL 08/16/22 13:44 Wound Center Nurse 2 -Time 10:08 -Correct Patient Yes -Correct Side, Site, Position Yes -Correct Procedure Yes -Procedure Performed Yes -Type of Procedure Debridement -Clinical Debridement Subcutaneous -Tissue Removed Subcutaneous -Post Debridement (cm) - Length 2.0 -Post Debridement (cm) - Width 1.8 -Post Debridement (cm) - Depth 0.1 -Total Square (Post) (cm) 3.60 -Area of Debridement (cm) - Length 2.0 -Area of Debridement (cm) - Width 1.8 -Total Square (Area) (cm) 3.60 -Tunneling No -Undermining/Tunneling No -Circular Undermining No -Wound/Ulcer Outcome Not Healed -Ulcer Cleansing Rinsed/ Irrigated with Saline -Foul Odor after Cleansing No -Bioengineered Tissue Yes -Type of Bioengineered Tissue Epifix -Expiration Date 02/07/27 -Product Lot Number [id number] -Percent Used 100 -Bleeding Controlled with Pressure -Treatment Response Procedure Tolerated Well -Debridement - Subq, 1st 20sq cm No -Apply Skin Sub - 1st 25 sq cm - Feet 1 -Epifix (per sq cm) 4 Pain Scale: 0-10 Numeric Is Patient Pain Free? Yes - Nurse 3 - General Ulcer D/C NN Start: 08/09/22 10:31 Freq: Status: Active Protocol: Activity Type Activity Date Activity User E-sign Co-sign Detail Recorded Client Recorded Date Recorded By Document 08/16/22 10:24 DL [id number] 08/16/22 10:25 DL 08/16/22 10:24 Wound Care Nurse 3 #10 LL FOOT -Ulcer Cleansing Not Cleansed -Foul Odor after Cleansing No -Other Dressing epifix -Primary Dressing Covered/Secured with Dry Gauze & Roll Gauze, Secured with Tape Left -Compression Wrap Kirill Wrap Treatment Response Procedure Tolerated Well Pain Scale: 0-10 Numeric Is Patient Pain Free? Yes - Visit Discharge Discharge Condition Stable Ambulatory Status Ambulatory, Walker Transportation Private Auto Assessment/Plan Assessment/Plan (1) Diabetic foot ulcer: CODE(S): E11.621 - Type 2 diabetes mellitus with foot ulcer; L97.509 - Non-pressure chronic ulcer of other part of unspecified foot with unspecified severity QUALIFIERS: Diabetes mellitus type: type 2 Laterality: left Non- pressure ulcer stage: with necrosis of bone (2) Osteomyelitis of metatarsal: CODE(S): M86.9 - Osteomyelitis, unspecified (3) Type 2 diabetes mellitus with diabetic polyneuropathy: CODE(S): E11.42 - Type 2 diabetes mellitus with diabetic polyneuropathy (4) Diabetic ulcer of foot associated with diabetes mellitus due to underlying condition, with necrosis of bone: CODE(S): E08.621 - Diabetes mellitus due to underlying condition with foot ulcer; L97.504 - Non-pressure chronic ulcer of other part of unspecified foot with necrosis of bone PLAN: Plan The patient appears to be tolerating hyperbaric oxygen therapy well, which will be continued as per their medical treatment plan.
--- NOTE | 2022-08-20 08:25 | HBO.PN.PCM_ITS ---
History of Present Illness Date of Service: 08/20/22 Chief Complaint: Osteomyelitis of the left foot; diabetic foot ulceration History of Wound: Patient is a 51-year-old male who presents to the wound care center for evaluation for hyperbaric oxygen therapy. He has been seeing Dr. 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 His ulcer is not making the progress that it should. He has a Gustafson stage III ulcer on his left foot. He uses a knee scooter. 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 There is interval development of osseous destruction of the head and distal diaphysis of the fourth metatarsal and base of the fourth proximal phalanx. Arterial study from 01/09/22, Right RANJAN - 1.19, Left RANJAN - NC, Left digital- brachial index is 0.67. The left digital-brachial index is mildly diminished. There is evidence of arterial calcification at ankle level on the left. Arterial flow appears normal at ankle level bilaterally, and at digital level on the right. There is evidence of mild arterial occlusive disease at digital level on the left. MRI of left lower extremity from 10/07/19 showed Marrow edema consistent osteomyelitis of the distal phalanges of the fourth and fifth toes. Soft tissue swelling. He has a history of DM Type II, last HgA1c 10.5 on 05/31/22, Kidney transplant one year ago, peripheral vascular disease, atherosclerotic heart disease, AMI, neuropathy, and GERD. He has received cardiac clearance from Dr. Oneill. Chest x-ray from 05/31/22 is normal. Today he denies fever, chills, nausea, vomiting. Patient has been having issues with his left TM, he was sent to ENT and an ear tube was place in the left ear only on 07/17/22. Patient has been approved for 30 treatment of hyperbaric oxygen therapy. Progress of Wound: Today is the ? treatment of hyperbaric oxygen therapy.? The patient is scheduled for 30 treatments total. Tolerance of hyperbaric oxygen therapy: Hyperbaric oxygen treatment was provided as per the facility's protocol at 2.0 BETO in 100% oxygen for 90 minutes without air breaks.? The patient tolerated hyperbaric oxygen well, without complications or complaints. Upon emergence of the hyperbaric chamber, the patient's vital signs remained stable. Objective Data Objective Data Vital Signs: Vital Signs Temp Pulse Resp BP 97.1 F L 85 17 107/64 08/17/22 09:31 08/17/22 09:31 08/17/22 09:31 08/17/22 09:31 Weight: 225 lb Body Mass Index (BMI) 34.2 Exam Physical Exam Const alert, oriented x3 and no apparent distress HEENT HEENT Narrative: Tympanostomy tube present and patent left TM Psych mental status grossly normal, thought process normal, cooperative, affect normal and speech normal Assessment/Plan Assessment/Plan (1) Osteomyelitis of metatarsal: CODE(S): M86.9 - Osteomyelitis, unspecified (2) 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 expos ed: CODE(S): L97.522 - 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 exposed (3) Type 2 diabetes mellitus with diabetic polyneuropathy: CODE(S): E11.42 - Type 2 diabetes mellitus with diabetic polyneuropathy PLAN: Plan The patient appears to be tolerating hyperbaric oxygen therapy well, which will be continued as per the patient's medical plan.
[2022-08-20 08:26] LABS: Bedside Glucose 240 mg/dL (74-106)
[2022-08-20 10:41] LABS: Bedside Glucose 191 mg/dL (74-106)
[2022-08-20 11:14] VITALS: BP 100/54; BP 114/72; PULSE 71; PULSE 84; RESP 16; RESP 17; TEMP 36
[2022-08-22 08:16] LABS: Bedside Glucose 291 mg/dL (74-106)
[2022-08-22 08:36] LABS: Bedside Glucose 285 mg/dL (74-106)
[2022-08-23 08:05] LABS: Bedside Glucose 166 mg/dL (74-106)
--- NOTE | 2022-08-23 10:29 | PN.PCM_ITS ---
History of Present Illness Date of Service: 08/23/22 Chief Complaint: Osteomyelitis of the left foot; diabetic foot ulceration History of Wound: Patient is a 51-year-old male who presents to the wound care center for evaluation for hyperbaric oxygen therapy. He has been seeing Dr. 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 His ulcer is not making the progress that it should. He has a Gustafson stage III ulcer on his left foot. He uses a knee scooter. 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 There is interval development of osseous destruction of the head and distal diaphysis of the fourth metatarsal and base of the fourth proximal phalanx. Arterial study from 01/09/22, Right RANJAN - 1.19, Left RANJAN - NC, Left digital- brachial index is 0.67. The left digital-brachial index is mildly diminished. There is evidence of arterial calcification at ankle level on the left. Arterial flow appears normal at ankle level bilaterally, and at digital level on the right. There is evidence of mild arterial occlusive disease at digital level on the left. MRI of left lower extremity from 10/07/19 showed Marrow edema consistent osteomyelitis of the distal phalanges of the fourth and fifth toes. Soft tissue swelling. He has a history of DM Type II, last HgA1c 10.5 on 05/31/22, Kidney transplant one year ago, peripheral vascular disease, atherosclerotic heart disease, AMI, neuropathy, and GERD. He has received cardiac clearance from Dr. Oneill. Chest x-ray from 05/31/22 is normal. Today he denies fever, chills, nausea, vomiting. Patient has been having issues with his left TM, he was sent to ENT and an ear tube was place in the left ear only on 07/17/22. Patient has been approved for 30 treatment of hyperbaric oxygen therapy. Progress of Wound: Today is the ? treatment of hyperbaric oxygen therapy.? The patient is scheduled for 30 treatments total. Tolerance of hyperbaric oxygen therapy: Hyperbaric oxygen treatment was provided as per the facility's protocol at 2.0 BETO in 100% oxygen for 90 minutes without air breaks.? The patient tolerated hyperbaric oxygen well, without complications or complaints. Upon emergence of the hyperbaric chamber, the patient's vital signs remained stable. 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 He has been changing the outer dressings to the left foot as needed.? He denies any constitutional symptoms.?He continues to deny any pain today.?He has no further complaints today. Objective Data Objective Data Vital Signs: Vital Signs Temp Pulse Resp BP 96.8 F L 84 17 100/54 L 08/20/22 11:14 08/20/22 11:14 08/20/22 11:14 08/20/22 11:14 Weight: 102.058 kg Body Mass Index (BMI) 34.2 Lab / Micro Data Labs: Laboratory Results - last 24 hr 08/23/22 07:44: POC Glucose 166 H Physical Exam Narrative Patient is alert oriented to person, place and time.? Patient ambulates with assistance of a knee scooter on the left.? And diabetic shoe on the right. Vascular: There are atrophic changes of the skin such as thinning shiny taut appearance absent digital hair growth.? Pulses are grossly palpable 2 out of 4 dorsalis pedis and posterior tibial bilateral feet.? Mild +1 pitting edema to bilateral lower extremity. Neurologic: Light touch protective sensation completely absent to bilateral lower extremity. Dermatologic: Healed right hallux ulceration.?Digital wounds to left foot healed at this time.?Status post partial fifth ray amputation left foot with healthy granular wound at the distal aspect of the amputation site. Lateral fourth digit demonstrates healed blister with No signs of infection. Musculoskeletal: No gross wound forming deformity.?Muscular strength full to bilateral lower extremity compartments.? No crepitus or pain noted to the wound or periwound areas. Const alert, oriented x3 and no apparent distress General Appearance: cooperative HEENT normocephalic Eyes General Eye: normal appearance of both eyes Neck General: normal visual inspection Lymph Lymphatic: no lymphadenopathy noted and no lymphedema noted Resp normal respiratory effort Cardio regular rate and regular rhythm Extremity normal capillary refill, no joint enlargement, no calf tenderness and no pedal edema Skin no rashes or lesions noted, skin turgor normal and no jaundice Wound Narrative: Left foot: Partial fifth ray resection noted.? Wound site measures 1.4 cm x 1.4 cm x 0.1 cm.? There is healthy appearing skin about the ulcerative rim.?There is no erythema, no expressible purulent drainage, no malodor, no other localized signs of infection.? Wound demonstrates healthy granular layer with adequate tissue bleeding. Neuro moves all extremities Debridement Note Debridement Note Wound debrided: Left lateral foot Laterality: Left Wound Grade/Stage: Gustafson stage III Type of Debridement: Excisional debridement Anesthesia Used: 5% Lidocaine Gel Depth: Down to and including healthy tissue and in the subcutaneous layer Percentage of wound debrided: 100 Instrument Used: 3mm curette Tissue Removed: Fibrous, devitalized subcutaneous, biofilm, slough Severity: Fat Layer Exposed Amount of bleeding with debridement: Mild Bleeding Controlled with: Compression and gauze Patient tolerated procedure: Patient tolerated procedure well Post-Debridement Measurements and Additional Note: Post-Debridement Measurements/Treatment - Nurse 1 - General Ulcer Assessment Start: 08/09/22 10:31 Freq: Status: Active Protocol: HOLLY Activity Type Activity Date Activity User E-sign Co-sign Detail Recorded Client Recorded Date Recorded By Document 08/09/22 10:32 [id number] 08/09/22 10:34 Document 08/16/22 10:00 [facility] [id number] 08/16/22 10:05 [facility] 08/09/22 08/16/22 10:32 10:00 - Today's Visit Information Type of service Follow-up Visit Follow-up Visit (Physician/VIBRATION ANALYST (Physician/VIBRATION ANALYST ) ) Arrival Mode Ambulatory Ambulatory, Walker Arrival Mode (Other) knee walker Transfer Assistance None Patient Identification Verified (Name & Yes Yes ) Height and Weight Body Mass Index (BMI) 34.2 34.2 BMI Classification Obese Obese Vital Signs Temperature (97.8 F-99.1 F) 97.0 F L Temperature Source Temporal Pulse Rate (60-100) 58 L Pulse Location Monitor Blood Pressure (90/60-120/80) 125/75 H Blood Pressure Mean (mm Hg) 91 Source Monitor Position Semi-Fowlers Blood Pressure Location Right Arm Comment vitals obtained in hbo just prior to this visit History Since Last Visit- (Skip if this is Patient's initial visit) Have you changed medications since your No No last visit? Any new allergies or adverse reactions No No Had a fall/change in ADL's that may No No increase risk of falls Signs or symptoms of abuse and/or No No neglect since last visit Have you been in the hospital since your No No last visit? Has dressing in place as prescribed Yes Yes Has compression in place as prescribed N/A Yes Has offloadiing in place as prescribed N/A Yes Experienced any changes in pain level or No No management Left Footwear Regular Shoe Surgical Shoe with pressure relief insole Right Footwear Regular Shoe Regular Shoe Pain Scale: 0-10 Numeric Is Patient Pain Free? Yes Yes WC - Nurse 1 - General Ulcer Measurement Start: 08/09/22 10:31 Freq: Status: Active Protocol: Activity Type Activity Date Activity User E-sign Co-sign Detail Recorded Client Recorded Date Recorded By Document 08/09/22 10:32 [id number] 08/09/22 10:34 KR Document 08/16/22 10:00 [facility] [id number] 08/16/22 10:05 BM 08/09/22 08/16/22 10:32 10:00 Wound Center Nurse 1 #10 LL FOOT -Combined with other wound No -Current Size (cm) - Length 2.3 2 -Current Size (cm) - Width 1.9 1.6 -Current Size (cm) - Depth 0.1 0.1 -Total Square Cm 4.37 3.2 -Date of Last Picture (Recall this 08/16/22 field) -Photo Taken Yes -Epithelialization Small 1-33% -Tunneling No -Undermining/Tunneling No -Circular Undermining No -Exudate Amt Small Medium -Exudate Type Serosanguineous Serosanguineous -Wound Margin Distinct, Distinct, Outline Outline Attached Attached -Granulation Amt Medium (34-66%) Large (67-100%) -Granulation Quality [place] Red -Slough/Fibrin Yes -Necrosis Amt None Present (0 Small (1-33%) %) -Necrotic Tissue Type Adherent Slough -Texture ([place]-wound Skin Appearance) Assessed, Assessed Scarring -Moisture ([place]-wound Skin Appearance) No Abnormality, Assessed, Assessed Maceration -Color ([place]-wound Skin Appearance) No Abnormality, Assessed, Assessed Erythema -Temperature ([place]-wound Skin No Abnormality No Abnormality Appearance) (Pt Warm) (Pt Warm) -Tenderness on Palpation ([place]-wound No No Skin Appearance) -Ulcer Cleansing Soap and Water Soap and Water -Foul Odor after Cleansing No No -Anesthetic Used 5% Lidocaine 5% Lidocaine Gel Gel WC - Nurse 2 - General Ulcer CM Notes Start: 08/09/22 10:31 Freq: Status: Active Protocol: Activity Type Activity Date Activity User E-sign Co-sign Detail Recorded Client Recorded Date Recorded By Document 08/09/22 12:44 PL [id number] 08/09/22 12:46 PL Document 08/16/22 13:44 PL [id number] 08/16/22 13:47 PL 08/09/22 08/16/22 12:44 13:44 Wound Center Nurse 2 #10 LL FOOT -Time 11:02 10:08 -Correct Patient Yes Yes -Correct Side, Site, Position Yes Yes -Correct Procedure Yes Yes -Procedure Performed Yes Yes -Type of Procedure Debridement Debridement -Clinical Debridement Subcutaneous Subcutaneous -Tissue Removed Subcutaneous Subcutaneous -Post Debridement (cm) - Length 2.2 2.0 -Post Debridement (cm) - Width 1.8 1.8 -Post Debridement (cm) - Depth 0.1 0.1 -Total Square (Post) (cm) 3.96 3.60 -Area of Debridement (cm) - Length 2.2 2.0 -Area of Debridement (cm) - Width 1.8 1.8 -Total Square (Area) (cm) 3.96 3.60 -Tunneling No No -Undermining/Tunneling No No -Circular Undermining No No -Wound/Ulcer Outcome Not Healed Not Healed -Ulcer Cleansing Rinsed/ Rinsed/ Irrigated with Irrigated with Saline Saline -Foul Odor after Cleansing No No -Bioengineered Tissue Yes Yes -Type of Bioengineered Tissue Epifix Epifix -Expiration Date 02/07/27 02/07/27 -Product Lot Number [id number] -Percent Used 100 100 -Bleeding Controlled with Pressure Pressure -Treatment Response Procedure Procedure Tolerated Well Tolerated Well -Debridement - Subq, 1st 20sq cm No No -Apply Skin Sub - 1st 25 sq cm - Feet 1 1 -Epifix (per sq cm) 4 4 Pain Scale: 0-10 Numeric Is Patient Pain Free? Yes Yes - Nurse 3 - General Ulcer D/C NN Start: 08/09/22 10:31 Freq: Status: Active Protocol: Activity Type Activity Date Activity User E-sign Co-sign Detail Recorded Client Recorded Date Recorded By Document 08/09/22 12:26 KR [id number] 08/09/22 12:26 KR Document 08/16/22 10:24 DL [id number] 08/16/22 10:25 DL 08/09/22 08/16/22 12:26 10:24 Wound Care Nurse 3 #10 LL FOOT -Ulcer Cleansing Not Cleansed -Foul Odor after Cleansing No -Other Dressing epifix -Primary Dressing Covered/Secured with Dry Gauze,Dry Dry Gauze & Gauze & Roll Roll Gauze, Gauze,Secured Secured with with Tape Tape Left -Compression Wrap Kirill Wrap Kirill Wrap Treatment Response Procedure Tolerated Well Pain Scale: 0-10 Numeric Is Patient Pain Free? 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 POV #22 (DOS: 03/24/2022) POD #153 Left lower extremity: No edema noted. Fifth digit amputation noted. Patient has a hemoglobin A1c of 10.5%, this has remained unchanged from his last A1c in March.? I stressed again today continued diet modifications for proper glycemic control to aid in his healing and overall health.?He was encouraged to remain following with his child care aide so that he may achieve a lower A1c. Infection: During surgical intervention 03/24/22 the tissues demonstrated normal integrity and were not easily dissectible through fascial planes with a finger as seen with typical necrotizing fasciitis cases.?He did however have soft tissu e crepitus with foul odor consistent with a gas gangrene, confirmed by radiograph on 03/24/2022.? 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 WBC 16.3 with left shift prior to surgical intervention.?WBC currently within normal limits.? He is finished IV antibiotic course and PICC line removed. Sx Cultures: Culture of wound/ulceration &?Bone culture fifth toe/fifth metatarsal demonstrates staph epi, Enterococcus faecalis, Streptococcus mitis/oralis, Turicella otitidis, Enterococcus casseliflavius, Peptostreptococcus prevotil, Prevotella bivia.? Cultures post surgical clearance demonstrate no growth. Wound: Wound underwent debridement as noted in clinical panel above today. Healthy granular tissue noted with no localized signs of infection.? No purulent drainage noted, no malodor noted.? Wound is continuing to granulate in well. He underwent debridement of the necrotic 4th metatarsal head on 05/24/22.?Radiographs were ordered of the left foot 05/31/22. Radiographs demonstrate: Amputation of the fifth metatarsal at the level of the mid diaphysis.?There is interval development of osseous destruction of the base of the fourth proximal phalanx and distal fourth metatarsal suspicious of osteomyelitis.Further debridement was performed on 05/31/22 removing nonviable tissue/bone in the base of his proximal phalanx of the fourth digit.?Wound measures 1.4 cm x 1.4 cm x 0.1 cm.? He has resumed hyperbaric dives following tube placement. He was approved for epi fix graft.? Epi fix mesh graft #9 applied to the wound bed today. He is not to get the dressing wet and to leave the dressings clean, dry, and intact to the left foot.? No expressible purulent drainage noted.?There is continued improvement in the appearance of his wound today with continued reduction in size. I will continue to monitor him for any progressing signs of infection.?He is aware that further surgical intervention may be required pending his progress. Dressings: Epi fix mesh graft, Adaptic touch and anchored with Steri-Strips with dry sterile dressing.? He was instructed to keep his dressings clean, dry, and intact to the left foot.?Continue to elevate the left lower extremity at all times of rest.? He was instructed that if his dressing falls off or gets removed prior to his next visit he is to return to [facility] wet-to-dry dressings.? He voices understanding of that. Patient is to remain nonweightbearing to the left lower extremity with assistance of a knee scooter. He may be partial weight bearing to Left heel for bathroom privileges and transfers. Visiting nursing to assist in dressing changes to the left foot. He will return to the wound care center in 1 week for continued localized wound care and close monitoring. Note: [facility] speech recognition bag adjuster software was used to create portions of this document. Sound-alike and misspelled words, as well as other bag adjuster errors may be contained in the documentation.
[2022-08-23 10:36] VITALS: BP 125/78; PULSE 89; RESP 18; TEMP 35.9; BMI 34.2
[2022-08-23 10:42] VITALS: BP 101/58; PULSE 89; RESP 15; TEMP 36.7
[2022-08-27 08:10] LABS: Bedside Glucose 199 mg/dL (74-106)
--- NOTE | 2022-08-27 08:18 | HBO.PN.PCM_ITS ---
History of Present Illness Date of Service: 08/27/22 Chief Complaint: Osteomyelitis of the left foot; diabetic foot ulceration History of Wound: Patient is a 51-year-old male who presents to the wound care center for evaluation for hyperbaric oxygen therapy. He has been seeing Dr. 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 His ulcer is not making the progress that it should. He has a Gustafson stage III ulcer on his left foot. He uses a knee scooter. 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 There is interval development of osseous destruction of the head and distal diaphysis of the fourth metatarsal and base of the fourth proximal phalanx. Arterial study from 01/09/22, Right RANJAN - 1.19, Left RANJAN - NC, Left digital- brachial index is 0.67. The left digital-brachial index is mildly diminished. There is evidence of arterial calcification at ankle level on the left. Arterial flow appears normal at ankle level bilaterally, and at digital level on the right. There is evidence of mild arterial occlusive disease at digital level on the left. MRI of left lower extremity from 10/07/19 showed Marrow edema consistent osteomyelitis of the distal phalanges of the fourth and fifth toes. Soft tissue swelling. He has a history of DM Type II, last HgA1c 10.5 on 05/31/22, Kidney transplant one year ago, peripheral vascular disease, atherosclerotic heart disease, AMI, neuropathy, and GERD. He has received cardiac clearance from Dr. Oneill. Chest x-ray from 05/31/22 is normal. Today he denies fever, chills, nausea, vomiting. Patient has been having issues with his left TM, he was sent to ENT and an ear tube was place in the left ear only on 07/17/22. Patient has been approved for 30 treatment of hyperbaric oxygen therapy. Progress of Wound: Today is the ? treatment of hyperbaric oxygen therapy.? The patient is scheduled for 30 treatments total. Tolerance of hyperbaric oxygen therapy: Hyperbaric oxygen treatment was provided as per the facility's protocol at 2.0 BETO in 100% oxygen for 90 minutes without air breaks.? The patient tolerated hyperbaric oxygen well, without complications or complaints. Upon emergence of the hyperbaric chamber, the patient's vital signs remained stable. Objective Data Objective Data Vital Signs: Vital Signs Temp Pulse Resp BP O2 Del Method 98.0 F 89 15 101/58 L Room Air 08/23/22 10:42 08/23/22 10:42 08/23/22 10:42 08/23/22 10:42 08/23/22 10:36 Oxygen Delivery Method Room Air Weight: 225 lb Body Mass Index (BMI) 34.2 Lab / Micro Data Labs: Laboratory Results - last 24 hr 08/27/22 07:46: POC Glucose 199 H Exam Physical Exam Const alert, oriented x3 and no apparent distress HEENT HEENT Narrative: Tympanostomy tube present and patent left TM Psych mental status grossly normal, thought process normal, cooperative, affect normal and speech normal Assessment/Plan Assessment/Plan (1) Osteomyelitis of metatarsal: CODE(S): M86.9 - Osteomyelitis, unspecified (2) 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 exposed: CODE(S): L97.522 - 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 exposed (3) Type 2 diabetes mellitus with diabetic polyneuropathy: CODE(S): E11.42 - Type 2 diabetes mellitus with diabetic polyneuropathy PLAN: Plan The patient appears to be tolerating hyperbaric oxygen therapy well, which will be continued as per the patient's medical plan.
[2022-08-27 09:28] VITALS: BP 106/70; BP 119/74; PULSE 79; PULSE 91; RESP 16; RESP 17; TEMP 36.7
[2022-08-27 10:11] LABS: Bedside Glucose 173 mg/dL (74-106)
[2022-08-28 08:05] LABS: Bedside Glucose 196 mg/dL (74-106)
--- NOTE | 2022-08-28 08:34 | HBO.PN.PCM_ITS ---
History of Present Illness Date of Service: 08/28/22 Chief Complaint: Osteomyelitis of the left foot; diabetic foot ulceration History of Wound: Patient is a 51-year-old male who presents to the wound care center for evaluation for hyperbaric oxygen therapy. He has been seeing Dr. 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 His ulcer is not making the progress that it should. He has a Gustafson stage III ulcer on his left foot. He uses a knee scooter. 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 There is interval development of osseous destruction of the head and distal diaphysis of the fourth metatarsal and base of the fourth proximal phalanx. Arterial study from 01/09/22, Right RANJAN - 1.19, Left RANJAN - NC, Left digital- brachial index is 0.67. The left digital-brachial index is mildly diminished. There is evidence of arterial calcification at ankle level on the left. Arterial flow appears normal at ankle level bilaterally, and at digital level on the right. There is evidence of mild arterial occlusive disease at digital level on the left. MRI of left lower extremity from 10/07/19 showed Marrow edema consistent osteomyelitis of the distal phalanges of the fourth and fifth toes. Soft tissue swelling. He has a history of DM Type II, last HgA1c 10.5 on 05/31/22, Kidney transplant one year ago, peripheral vascular disease, atherosclerotic heart disease, AMI, neuropathy, and GERD. He has received cardiac clearance from Dr. Oneill. Chest x-ray from 05/31/22 is normal. Today he denies fever, chills, nausea, vomiting. Patient has been having issues with his left TM, he was sent to ENT and an ear tube was place in the left ear only on 07/17/22. Patient has been approved for 30 treatment of hyperbaric oxygen therapy. Progress of Wound: Today is the ? treatment of hyperbaric oxygen therapy.? The patient is scheduled for 30 treatments total. Tolerance of hyperbaric oxygen therapy: Hyperbaric oxygen treatment was provided as per the facility's protocol at 2.0 BETO in 100% oxygen for 75 minutes without air breaks.? With 15 minutes to complete the treatment the patient knocked on the chamber and notified the nurse that he felt his blood sugar was low. She started the Ascent. Once the patient was out of the chamber he was alert and oriented. Blood sugar was checked and found to be 67. Vital signs were stable. She treated him with 4 ounces of orange juice and 8 ounces of Glucerna. Recheck on blood sugar was 60. The patient was diaphoretic and pale. He was still alert but drowsy. Emergency services were contacted. The patient remained monitored until he was picked up by EMS to be transported to the emergency department for further evaluation. Objective Data Objective Data Vital Signs: Vital Signs Temp Pulse Resp BP O2 Del Method 98.0 F 91 16 106/70 Room Air 08/27/22 09:28 08/27/22 09:28 08/27/22 09:28 08/27/22 09:28 08/23/22 10:36 Oxygen Delivery Method Room Air Weight: 225 lb Body Mass Index (BMI) 34.2 Lab / Micro Data Labs: Laboratory Results - last 24 hr 08/27/22 09:49: POC Glucose 173 H 08/28/22 07:46: POC Glucose 196 H Exam Physical Exam Const alert, oriented x3 and no apparent distress HEENT HEENT Narrative: Tympanostomy tube present and patent left TM Psych mental status grossly normal, thought process normal, cooperative, affect normal and speech normal Assessment/Plan Assessment/Plan (1) Osteomyelitis of metatarsal: CODE(S): M86.9 - Osteomyelitis, unspecified (2) 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 exposed: CODE(S): L97.522 - 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 exposed (3) Type 2 diabetes mellitus with diabetic polyneuropathy: CODE(S): E11.42 - Type 2 diabetes mellitus with diabetic polyneuropathy PLAN: Plan Transport patient to EMS for evaluation. Continue hyperbaric oxygen therapy if blood sugars are stable at his next visit.
[2022-08-28 09:10] VITALS: BP 155/87; BP 94/60; PULSE 75; PULSE 92; RESP 15; RESP 16; TEMP 36.3; TEMP 36.6
[2022-08-28 10:31] LABS: Bedside Glucose 65 mg/dL (74-106)
[2022-08-28 10:31] LABS: Bedside Glucose 60 mg/dL (74-106)
[2022-08-29 08:00] LABS: Bedside Glucose 253 mg/dL (74-106)
[2022-08-29 08:15] LABS: Bedside Glucose 272 mg/dL (74-106)
[2022-08-29 08:36] LABS: Bedside Glucose 264 mg/dL (74-106)
--- NOTE | 2022-08-29 10:16 | HBO.PN.PCM_ITS ---
History of Present Illness Date of Service: 08/29/22 Chief Complaint: Osteomyelitis of the left foot; diabetic foot ulceration History of Wound: Patient is a 51-year-old male who presents to the wound care center for evaluation for hyperbaric oxygen therapy. He has been seeing Dr. 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 His ulcer is not making the progress that it should. He has a Gustafson stage III ulcer on his left foot. He uses a knee scooter. 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 There is interval development of osseous destruction of the head and distal diaphysis of the fourth metatarsal and base of the fourth proximal phalanx. Arterial study from 01/09/22, Right RANJAN - 1.19, Left RANJAN - NC, Left digital- brachial index is 0.67. The left digital-brachial index is mildly diminished. There is evidence of arterial calcification at ankle level on the left. Arterial flow appears normal at ankle level bilaterally, and at digital level on the right. There is evidence of mild arterial occlusive disease at digital level on the left. MRI of left lower extremity from 10/07/19 showed Marrow edema consistent osteomyelitis of the distal phalanges of the fourth and fifth toes. Soft tissue swelling. He has a history of DM Type II, last HgA1c 10.5 on 05/31/22, Kidney transplant one year ago, peripheral vascular disease, atherosclerotic heart disease, AMI, neuropathy, and GERD. He has received cardiac clearance from Dr. Oneill. Chest x-ray from 05/31/22 is normal. Today he denies fever, chills, nausea, vomiting. Patient has been having issues with his left TM, he was sent to ENT and an ear tube was place in the left ear only on 07/17/22. Patient has been approved for 30 treatment of hyperbaric oxygen therapy. Progress of Wound: Today was supposed to be the ? treatment of hyperbaric oxygen therapy.? The patient is scheduled for 30 treatments total. The treatment was cancelled due to patient blood sugars being too high. His initial sugar was 253, the repeat 15minutes later was 270, then the last one done 15 minutes later was 264. He will plan on coming back tomorrow. He is sitting in a chair denying any complaints and is not symptomatic at this time. Objective Data Objective Data Vital Signs: Vital Signs Temp Pulse Resp BP O2 Del Method 97.8 F 92 16 94/60 Room Air 08/28/22 09:10 08/28/22 09:10 08/28/22 09:10 08/28/22 09:10 08/23/22 10:36 Oxygen Delivery Method Room Air Weight: 225 lb Body Mass Index (BMI) 34.2 Lab / Micro Data Labs: Laboratory Results - last 24 hr 08/28/22 09:29: POC Glucose 65 L 08/28/22 09:36: POC Glucose 60 L 08/29/22 07:40: POC Glucose 253 H 08/29/22 07:56: POC Glucose 272 H 08/29/22 08:15: POC Glucose 264 H Exam Physical Exam Const alert, oriented x3 and no apparent distress HEENT normocephalic Psych affect normal Charges/Coding Visit Charges Office Visits / Consults: [id number] OV L2 Est Assessment/Plan Assessment/Plan (1) Osteomyelitis of metatarsal: CODE(S): M86.9 - Osteomyelitis, unspecified (2) 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 exposed: CODE(S): L97.522 - 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 exposed (3) Type 2 diabetes mellitus with diabetic polyneuropathy: CODE(S): E11.42 - Type 2 diabetes mellitus with diabetic polyneuropathy PLAN: Plan Plan is he will come in tomorrow for his rd treatment.
--- NOTE | 2022-08-29 11:03 | WC ---
Pt. blood sugar was 264 first attempt,270 second attempt,and 264 third attempt. Treatment held. Will return tomorrow.
[2022-08-30 08:07] VITALS: BP 146/74; PULSE 83; RESP 16; TEMP 35.7; BMI 34.2
--- NOTE | 2022-08-30 08:32 | WC ---
Pt blood sugar was 108 this morning. Aureliano was informed and cancelled dive.
--- NOTE | 2022-08-30 08:57 | PN.PCM_ITS ---
History of Present Illness Date of Service: 08/30/22 Chief Complaint: Osteomyelitis of the left foot; diabetic foot ulceration History of Wound: Patient is a 51-year-old male who presents to the wound care center for evaluation for hyperbaric oxygen therapy. He has been seeing Dr. 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 His ulcer is not making the progress that it should. He has a Gustafson stage III ulcer on his left foot. He uses a knee scooter. 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 There is interval development of osseous destruction of the head and distal diaphysis of the fourth metatarsal and base of the fourth proximal phalanx. Arterial study from 01/09/22, Right RANJAN - 1.19, Left RANJAN - NC, Left digital- brachial index is 0.67. The left digital-brachial index is mildly diminished. There is evidence of arterial calcification at ankle level on the left. Arterial flow appears normal at ankle level bilaterally, and at digital level on the right. There is evidence of mild arterial occlusive disease at digital level on the left. MRI of left lower extremity from 10/07/19 showed Marrow edema consistent osteomyelitis of the distal phalanges of the fourth and fifth toes. Soft tissue swelling. He has a history of DM Type II, last HgA1c 10.5 on 05/31/22, Kidney transplant one year ago, peripheral vascular disease, atherosclerotic heart disease, AMI, neuropathy, and GERD. He has received cardiac clearance from Dr. Oneill. Chest x-ray from 05/31/22 is normal. Today he denies fever, chills, nausea, vomiting. Patient has been having issues with his left TM, he was sent to ENT and an ear tube was place in the left ear only on 07/17/22. Patient has been approved for 30 treatment of hyperbaric oxygen therapy. Progress of Wound: Today was supposed to be the ? treatment of hyperbaric oxygen therapy.? The patient is scheduled for 30 treatments total. The treatment was cancelled due to patient blood sugars being too high. His initial sugar was 253, the repeat 15minutes later was 270, then the last one done 15 minutes later was 264. He will plan on coming back tomorrow. He is sitting in a chair denying any complaints and is not symptomatic at this time. Subjective Subjective Patient is a 51-year-old male who presents to the wound care center for follow- up status post I&D of gas gangrene with partial fifth ray resection.?He states he had some difficulty with his HBO dive in which he crashed due to blood sugars uncontrolled. He did not complete HBO dive today or yesterday. He is pleased with his continued healing progress. He has been changing the outer dressings to the left foot as needed.? He denies any constitutional symptoms.?He continues to deny any pain today.?He has no further complaints today. Objective Data Objective Data Vital Signs: Vital Signs Temp Pulse Resp BP O2 Del Method 96.3 F L 83 16 146/74 H Room Air 08/30/22 08:07 08/30/22 08:07 08/30/22 08:07 08/30/22 08:07 08/23/22 10:36 Oxygen Delivery Method Room Air Weight: 102.058 kg Body Mass Index (BMI) 34.2 Physical Exam Narrative Patient is alert oriented to person, place and time.? Patient ambulates with assistance of a knee scooter on the left.? And diabetic shoe on the right. Vascular: There are atrophic changes of the skin such as thinning shiny taut appearance absent digital hair growth.? Pulses are grossly palpable 2 out of 4 dorsalis pedis and posterior tibial bilateral feet.? Mild +1 pitting edema to bilateral lower extremity. Neurologic: Light touch protective sensation completely absent to bilateral lower extremity. Dermatologic: Healed right hallux ulceration.?Digital wounds to left foot healed at this time.?Status post partial fifth ray amputation left foot with healthy granular wound at the distal aspect of the amputation site. Lateral fourth digit demonstrates healed blister with No signs of infection. Musculoskeletal: No gross wound forming deformity.?Muscular strength full to bilateral lower extremity compartments.? No crepitus or pain noted to the wound or periwound areas. Const alert, oriented x3 and no apparent distress General Appearance: cooperative HEENT normocephalic Eyes General Eye: normal appearance of both eyes Neck General: normal visual inspection Lymph Lymphatic: no lymphadenopathy noted and no lymphedema noted Resp normal respiratory effort Cardio regular rate and regular rhythm Extremity normal capillary refill, no joint enlargement, no calf tenderness and no pedal edema Skin no rashes or lesions noted, skin turgor normal and no jaundice Wound Narrative: Left foot: Partial fifth ray resection noted.? Wound site measures 1.4 cm x 1.4 cm x 0.1 cm.? There is healthy appearing skin about the ulcerative rim.?There is no erythema, no expressible purulent drainage, no malodor, no other localized signs of infection.? Wound demonstrates healthy granular layer with adequate tissue bleeding. Neuro moves all extremities Debridement Note Debridement Note Wound debrided: Fifth metatarsal stump/lateral foot Laterality: Left Wound Grade/Stage: Gustafson stage III Type of Debridement: Excisional debridement Anesthesia Used: 5% Lidocaine Gel Depth: Down to and including healthy tissue and in the subcutaneous layer Percentage of wound debrided: 100 Instrument Used: 3mm curette Tissue Removed: Fibrous, devitalized subcutaneous, biofilm, slough Severity: Fat Layer Exposed Amount of bleeding with debridement: Mild Bleeding Controlled with: Compression and gauze Patient tolerated procedure: Patient tolerated procedure well Post-Debridement Measurements and Additional Note: Post-Debridement Measurements/Treatment - Nurse 1 - General Ulcer Assessment Start: 08/09/22 10:31 Freq: Status: Active Protocol: HOLLY Activity Type Activity Date Activity User E-sign Co-sign Detail Recorded Client Recorded Date Recorded By Document 08/09/22 10:32 [id number] 08/09/22 10:34 KR Document 08/16/22 10:00 [facility] [id number] 08/16/22 10:05 [facility] Document 08/23/22 10:36 [place] [id number] 08/23/22 10:43 [place] Document 08/30/22 08:07 ML [id number] 08/30/22 08:16 ML 08/09/22 08/16/22 08/23/22 10:32 10:00 10:36 - Today's Visit Information Type of service Follow-up Visit Follow-up Visit Follow-up Visit (Physician/NUCLEAR MEDICAL TECH (Physician/NUCLEAR MEDICAL TECH (Physician/NUCLEAR MEDICAL TECH ) ) ) Arrival Mode Ambulatory Ambulatory, Ambulatory, Walker Other Arrival Mode (Other) knee walker knee walker Transfer Assistance None Accompanied by self Patient Identification Verified (Name & Yes Yes Yes ) Patient Requires Transmission-Based Precautions Safety Precautions Finger Stick Blood Sugar(mg/dl) (if indicated): Blood Sugar Height and Weight Body Mass Index (BMI) 34.2 34.2 34.2 BMI Classification Obese Obese Obese Vital Signs Temperature (97.8 F-99.1 F) 97.0 F L 96.6 F L Temperature Source Temporal Oral Pulse Rate (60-100) 58 L 89 Pulse Location Monitor Monitor Respiratory Rate (12-18) 18 Respiratory rate source Observation Oxygen Delivery Method Room Air Blood Pressure (90/60-120/80) 125/75 H 125/78 H Blood Pressure Mean (mm Hg) 91 93 Source Monitor Monitor Position Semi-Fowlers Sitting Blood Pressure Location Right Arm Left Arm Comment vitals obtained in [facility] just prior to this visit History Since Last Visit- (Skip if this is Patient's initial visit) Have you changed medications since your No No last visit? Any new allergies or adverse reactions No No Had a fall/change in ADL's that may No No increase risk of falls Signs or symptoms of abuse and/or No No neglect since last visit Have you been in the hospital since your No No No last visit? Has dressing in place as prescribed Yes Yes Yes Has compression in place as prescribed N/A Yes Yes Has offloadiing in place as prescribed N/A Yes Yes Experienced any changes in pain level or No No Yes management Left Footwear Regular Shoe Surgical Shoe Diabetic Shoe with pressure relief insole Right Footwear Regular Shoe Regular Shoe Regular Shoe Pain Scale: 0-10 Numeric Is Patient Pain Free? Yes Yes Yes 08/30/22 08:07 WC - Today's Visit Information Type of service Follow-up Visit (Physician/NUCLEAR MEDICAL TECH ) Arrival Mode Walker Arrival Mode (Other) Transfer Assistance None Accompanied by Patient Identification Verified (Name & Yes ) Patient Requires Transmission-Based No Precautions Safety Precautions NA Finger Stick Blood Sugar(mg/dl) (if 108 indicated): Blood Sugar Done During this Visit Height and Weight Body Mass Index (BMI) 34.2 BMI Classification Obese Vital Signs Temperature (97.8 F-99.1 F) 96.3 F L Temperature Source Temporal Pulse Rate (60-100) 83 Pulse Location Monitor Respiratory Rate (12-18) 16 Respiratory rate source Observation Oxygen Delivery Method Blood Pressure (90/60-120/80) 146/74 H Blood Pressure Mean (mm Hg) 98 Source Monitor Position Sitting Blood Pressure Location Left Arm Comment History Since Last Visit- (Skip if this is Patient's initial visit) Have you changed medications since your No last visit? Any new allergies or adverse reactions No Had a fall/change in ADL's that may increase risk of falls Signs or symptoms of abuse and/or No neglect since last visit Have you been in the hospital since your No last visit? Has dressing in place as prescribed Yes Has compression in place as prescribed Yes Has offloadiing in place as prescribed Yes Experienced any changes in pain level or No management Left Footwear Surgical Shoe with pressure relief insole Right Footwear Regular Shoe Pain Scale: 0-10 Numeric Is Patient Pain Free? Yes WC - Nurse 1 - General Ulcer Measurement Start: 08/09/22 10:31 Freq: Status: Active Protocol: Activity Type Activity Date Activity User E-sign Co-sign Detail Recorded Client Recorded Date Recorded By Document 08/09/22 10:32 KR [id number] 08/09/22 10:34 KR Document 08/16/22 10:00 [facility] [id number] 08/16/22 10:05 BMF Document 08/23/22 10:36 MT [id number] 08/23/22 10:43 MT Document 08/30/22 08:07 ML [id number] 08/30/22 08:16 ML 08/09/22 08/16/22 08/23/22 10:32 10:00 10:36 Wound Center Nurse 1 #10 LL FOOT -Combined with other wound No -Current Size (cm) - Length 2.3 2 2 -Current Size (cm) - Width 1.9 1.6 1.5 -Current Size (cm) - Depth 0.1 0.1 0.1 -Total Square Cm 4.37 3.2 3.0 -Date of Last Picture (Recall this 08/16/22 field) -Photo Taken Yes -Epithelialization Small 1-33% -Tunneling No -Undermining/Tunneling No -Circular Undermining No -Exudate Amt Small Medium Medium -Exudate Type Serosanguineous Serosanguineous Serosanguineous -Wound Margin Distinct, Distinct, Flat & Intact Outline Outline Attached Attached -Granulation Amt Medium (34-66%) Large (67-100%) Large (67-100%) -Granulation Quality [place]ott Red Pale,[place]ott,Red -Slough/Fibrin Yes -Necrosis Amt None Present (0 Small (1-33%) Small (1-33%) %) -Necrotic Tissue Type Adherent Slough Adherent Slough -Texture (Dunia-wound Skin Appearance) Assessed, Assessed Assessed,Callus Scarring -Moisture (Dunia-wound Skin Appearance) No Abnormality, Assessed, Assessed Assessed Maceration -Color (Dunia-wound Skin Appearance) No Abnormality, Assessed, Assessed Assessed Erythema -Temperature ([place]ia-wound Skin No Abnormality No Abnormality No Abnormality Appearance) (Pt Warm) (Pt Warm) (Pt Warm) -Tenderness on Palpation (Dunia-wound No No No Skin Appearance) -Ulcer Cleansing Soap and Water Soap and Water Soap and Water -Foul Odor after Cleansing No No No -Anesthetic Used 5% Lidocaine 5% Lidocaine 5% Lidocaine Gel Gel Gel Left Calf (cm) 39 Left Ankle (cm) 28 08/30/22 08:07 Wound Center Nurse 1 #10 LL FOOT -Combined with other wound -Current Size (cm) - Length 1.8 -Current Size (cm) - Width 1.5 -Current Size (cm) - Depth 0.4 -Total Square Cm 2.70 -Date of Last Picture (Recall this field) -Photo Taken -Epithelialization -Tunneling -Undermining/Tunneling -Circular Undermining -Exudate Amt Medium -Exudate Type Serosanguineous -Wound Margin Distinct, Outline Attached -Granulation Amt -Granulation Quality -Slough/Fibrin Yes -Necrosis Amt Medium (34-66%) -Necrotic Tissue Type Adherent Slough -Texture (Dunia-wound Skin Appearance) Assessed -Moisture (Dunia-wound Skin Appearance) Assessed -Color (Dunia-wound Skin Appearance) -Temperature ([place]-wound Skin No Abnormality Appearance) (Pt Warm) -Tenderness on Palpation (Dunia-wound No Skin Appearance) -Ulcer Cleansing Soap and Water -Foul Odor after Cleansing -Anesthetic Used 5% Lidocaine Gel Left Calf (cm) Left Ankle (cm) WC - Nurse 2 - General Ulcer CM Notes Start: 08/09/22 10:31 Freq: Status: Active Protocol: Activity Type Activity Date Activity User E-sign Co-sign Detail Recorded Client Recorded Date Recorded By Document 08/09/22 12:44 PL [id number] 12/01/22 12:46 PL Document 08/16/22 13:44 PL [id number] 08/16/22 13:47 PL Document 08/23/22 12:02 PL [id number] 08/23/22 12:04 PL 08/09/22 08/16/22 08/23/22 12:44 13:44 12:02 Wound Center Nurse 2 #10 LL FOOT -Time 11:02 10:08 11:29 -Correct Patient Yes Yes Yes -Correct Side, Site, Position Yes Yes Yes -Correct Procedure Yes Yes Yes -Procedure Performed Yes Yes Yes -Type of Procedure Debridement Debridement Debridement -Clinical Debridement Subcutaneous Subcutaneous Subcutaneous -Tissue Removed Subcutaneous Subcutaneous Subcutaneous -Post Debridement (cm) - Length 2.2 2.0 1.4 -Post Debridement (cm) - Width 1.8 1.8 1.4 -Post Debridement (cm) - Depth 0.1 0.1 0.1 -Total Square (Post) (cm) 3.96 3.60 1.96 -Area of Debridement (cm) - Length 2.2 2.0 1.4 -Area of Debridement (cm) - Width 1.8 1.8 1.4 -Total Square (Area) (cm) 3.96 3.60 1.96 -Tunneling No No No -Undermining/Tunneling No No No -Circular Undermining No No No -Wound/Ulcer Outcome Not Healed Not Healed Not Healed -Ulcer Cleansing Rinsed/ Rinsed/ Rinsed/ Irrigated with Irrigated with Irrigated with Saline Saline Saline -Foul Odor after Cleansing No No No -Bioengineered Tissue Yes Yes Yes -Type of Bioengineered Tissue Epifix Epifix Epifix 18mm Disc -Expiration Date 02/07/27 02/07/27 05/10/27 -Product Lot Number [id number] -Percent Used 100 100 100 -Bleeding Controlled with Pressure Pressure Pressure -Treatment Response Procedure Procedure Procedure Tolerated Well Tolerated Well Tolerated Well -Debridement - Subq, 1st 20sq cm No No No -Apply Skin Sub - 1st 25 sq cm - Feet 1 1 1 -Epifix (per sq cm) 4 4 -Epifix 18mm Disc 3 Pain Scale: 0-10 Numeric Is Patient Pain Free? Yes Yes Yes WC - Nurse 3 - General Ulcer D/C NN Start: 08/09/22 10:31 Freq: Status: Active Protocol: Activity Type Activity Date Activity User E-sign Co-sign Detail Recorded Client Recorded Date Recorded By Document 08/09/22 12:26 KR [id number] 08/09/22 12:26 KR Document 08/16/22 10:24 DL [id number] 08/16/22 10:25 DL Document 08/23/22 12:04 AK [id number] 08/23/22 12:05 AK 08/09/22 08/16/22 08/23/22 12:26 10:24 12:04 Wound Care Nurse 3 #10 LL FOOT -Ulcer Cleansing Not Cleansed -Foul Odor after Cleansing No -Other Dressing epifix ABD and coban to hold dressing in place. PT. request -Primary Dressing Covered/Secured with Dry Gauze,Dry Dry Gauze & Dry Gauze & Gauze & Roll Roll Gauze, Roll Gauze, Gauze,Secured Secured with Secured with with Tape Tape Tape Left -Compression Wrap Kirill Wrap Kirill Wrap Treatment Response Procedure Tolerated Well Pain Scale: 0-10 Numeric Is Patient Pain Free? 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 POV #23 (DOS: 03/24/2022) POD #160 Left lower extremity: No edema noted. Fifth digit amputation noted. Patient has a hemoglobin A1c of 10.5%, this has remained unchanged from his last A1c in March.? He recently crashed during his hyperbaric dive due to uncontrolled blood sugar. 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 Infection: During surgical intervention 03/24/22 the tissues demonstrated normal integrity and were not easily dissectible through fascial planes with a finger as seen with typical necrotizing fasciitis cases.?He did however have soft tissue crepitus with foul odor consistent with a gas gangrene, confirmed by radiograph on 03/24/2022.? 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 WBC 16.3 with left shift prior to surgical intervention.?WBC currently within normal limits.? He is finished IV antibiotic course and PICC line removed. Sx Cultures: Culture of wound/ulceration &?Bone culture fifth toe/fifth metatarsal demonstrates staph epi, Enterococcus faecalis, Streptococcus mitis/oralis, Turicella otitidis, Enterococcus casseliflavius, Peptostreptococcus prevotil, Prevotella bivia.? Cultures post surgical clearance demonstrate no growth. Wound: Wound underwent debridement as noted in clinical panel above today. Healthy granular tissue noted with no localized signs of infection.? No purulent drainage noted, no malodor noted.? Wound is continuing to granulate in well. He underwent debridement of the necrotic 4th metatarsal head on 05/24/22.?Radiographs were ordered of the left foot 05/31/22. Radiographs demonstrate: Amputation of the fifth metatarsal at the level of the mid diaphysis.?There is interval development of osseous destruction of the base of the fourth proximal phalanx and distal fourth metatarsal suspicious of osteomyelitis.Further debridement was performed on 05/31/22 removing nonviable tissue/bone in the base of his proximal phalanx of the fourth digit.?Wound measures 1.4 cm x 1.4 cm x 0.1 cm.? He has resumed hyperbaric dives following tube placement. He was approved for epi fix graft.? Epi fix mesh graft #10 applied to the wound bed today. He is not to get the dressing wet and to leave the dressings clean, dry, and intact to the left foot.? No expressible purulent drainage noted.?There is continued improvement in the appearance of his wound today with continued reduction in size. I will continue to monitor him for any progressing signs of infection.?He is aware that further surgical intervention may be required pending his progress. Dressings: Epi fix mesh graft, Adaptic touch and anchored with Steri-Strips with dry sterile dressing.? He was instructed to keep his dressings clean, dry, and intact to the left foot.?Continue to elevate the left lower extremity at all times of rest.? He was instructed that if his dressing falls off or gets removed prior to his next visit he is to return to Dakin's wet-to-dry dressings.? He voices understanding of that. Patient is to remain nonweightbearing to the left lower extremity with assistance of a knee scooter. He may be partial weight bearing to Left heel for bathroom privileges and transfers. Visiting nursing to assist in dressing changes to the left foot. He will return to the wound care center in 1 week for continued localized wound care and close monitoring. Note: [employer]FE[employer] speech recognition pulling machine operator software was used to create portions of this document. Sound-alike and misspelled words, as well as other pulling machine operator errors may be contained in the documentation.
[2022-09-04 08:06] LABS: Bedside Glucose 139 mg/dL (74-106)
[2022-09-04 08:45] LABS: Bedside Glucose 108 mg/dL (74-106)
--- NOTE | 2022-09-04 11:50 | WC ---
Pt blood sugar was 139 this morning. Aureliano informed and cancelled dive.
[2022-09-05 08:10] LABS: Bedside Glucose 158 mg/dL (74-106)
--- NOTE | 2022-09-05 08:31 | HBO.PN.PCM_ITS ---
History of Present Illness Date of Service: 08/27/22 Chief Complaint: Osteomyelitis of the left foot; diabetic foot ulceration History of Wound: Patient is a 51-year-old male who presents to the wound care center for evaluation for hyperbaric oxygen therapy. He has been seeing Dr. 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 His ulcer is not making the progress that it should. He has a Gustafson stage III ulcer on his left foot. He uses a knee scooter. 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 There is interval development of osseous destruction of the head and distal diaphysis of the fourth metatarsal and base of the fourth proximal phalanx. Arterial study from 01/09/22, Right RANJAN - 1.19, Left RANJAN - NC, Left digital- brachial index is 0.67. The left digital-brachial index is mildly diminished. There is evidence of arterial calcification at ankle level on the left. Arterial flow appears normal at ankle level bilaterally, and at digital level on the right. There is evidence of mild arterial occlusive disease at digital level on the left. MRI of left lower extremity from 10/07/19 showed Marrow edema consistent osteomyelitis of the distal phalanges of the fourth and fifth toes. Soft tissue swelling. He has a history of DM Type II, last HgA1c 10.5 on 05/31/22, Kidney transplant one year ago, peripheral vascular disease, atherosclerotic heart disease, AMI, neuropathy, and GERD. He has received cardiac clearance from Dr. Oneill. Chest x-ray from 05/31/22 is normal. Today he denies fever, chills, nausea, vomiting. Patient has been having issues with his left TM, he was sent to ENT and an ear tube was place in the left ear only on 07/17/22. Patient has been approved for 30 treatment of hyperbaric oxygen therapy. Progress of Wound: Today is the ? treatment of hyperbaric oxygen therapy.? The patient is scheduled for 30 treatments total. Tolerance of hyperbaric oxygen therapy: Hyperbaric oxygen treatment was provided as per the facility's protocol at 2.0 BETO in 100% oxygen for 90 minutes without air breaks.? The patient tolerated hyperbaric oxygen well, without complications or complaints. Upon emergence of the hyperbaric chamber, the patient's vital signs remained stable. Objective Data Objective Data Vital Signs: Vital Signs Temp Pulse Resp BP O2 Del Method 96.3 F L 83 16 146/74 H Room Air 08/30/22 08:07 08/30/22 08:07 08/30/22 08:07 08/30/22 08:07 08/23/22 10:36 Oxygen Delivery Method Room Air Weight: 225 lb Body Mass Index (BMI) 34.2 Lab / Micro Data Labs: Laboratory Results - last 24 hr 08/30/22 07:54: POC Glucose 108 H 09/05/22 07:53: POC Glucose 158 H Exam Physical Exam Const alert, oriented x3 and no apparent distress HEENT HEENT Narrative: Tympanostomy tube present and patent left TM Psych mental status grossly normal, thought process normal, cooperative, affect normal and speech normal Assessment/Plan Assessment/Plan (1) Osteomyelitis of metatarsal: CODE(S): M86.9 - Osteomyelitis, unspecified (2) 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 exposed: CODE(S): L97.522 - 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 exposed (3) Type 2 diabetes mellitus with diabetic polyneuropathy: CODE(S): E11.42 - Type 2 diabetes mellitus with diabetic polyneuropathy PLAN: Plan The patient appears to be tolerating hyperbaric oxygen therapy well, which will be continued as per the patient's medical plan.
[2022-09-05 10:41] LABS: Bedside Glucose 176 mg/dL (74-106)
[2022-09-05 11:05] VITALS: BP 134/74; BP 135/78; PULSE 76; PULSE 89; RESP 17; TEMP 35.9; TEMP 36.7
--- NOTE | 2022-09-06 11:41 | PN.PCM_ITS ---
History of Present Illness Date of Service: 09/06/22 Chief Complaint: Osteomyelitis of the left foot; diabetic foot ulceration History of Wound: Patient is a 51-year-old male who presents to the wound care center for evaluation for hyperbaric oxygen therapy. He has been seeing Dr. 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 His ulcer is not making the progress that it should. He has a Gustafson stage III ulcer on his left foot. He uses a knee scooter. 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 There is interval development of osseous destruction of the head and distal diaphysis of the fourth metatarsal and base of the fourth proximal phalanx. Arterial study from 01/09/22, Right RANJAN - 1.19, Left RANJAN - NC, Left digital- brachial index is 0.67. The left digital-brachial index is mildly diminished. There is evidence of arterial calcification at ankle level on the left. Arterial flow appears normal at ankle level bilaterally, and at digital level on the right. There is evidence of mild arterial occlusive disease at digital level on the left. MRI of left lower extremity from 10/07/19 showed Marrow edema consistent osteomyelitis of the distal phalanges of the fourth and fifth toes. Soft tissue swelling. He has a history of DM Type II, last HgA1c 10.5 on 05/31/22, Kidney transplant one year ago, peripheral vascular disease, atherosclerotic heart disease, AMI, neuropathy, and GERD. He has received cardiac clearance from Dr. Oneill. Chest x-ray from 05/31/22 is normal. Today he denies fever, chills, nausea, vomiting. Patient has been having issues with his left TM, he was sent to ENT and an ear tube was place in the left ear only on 07/17/22. Patient has been approved for 30 treatment of hyperbaric oxygen therapy. Progress of Wound: Today is the ? treatment of hyperbaric oxygen therapy.? The patient is scheduled for 30 treatments total. Tolerance of hyperbaric oxygen therapy: Hyperbaric oxygen treatment was provided as per the facility's protocol at 2.0 BETO in 100% oxygen for 90 minutes without air breaks.? The patient tolerated hyperbaric oxygen well, without complications or complaints. Upon emergence of the hyperbaric chamber, the patient's vital signs remained stable. 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 He did not complete HBO dive today or yesterday. He was recently evaluated by his furnace repairer helper and has had improvement in lowering his A1c. He will look to try to perform another HBO dive tomorrow. He is pleased with his continued healing progress. He has been changing the outer dressings to the left foot as needed.? He denies any constitutional symptoms.?He continues to deny any pain today.?He has no further complaints today. Objective Data Objective Data Vital Signs: Vital Signs Temp Pulse Resp BP O2 Del Method 96.7 F L 89 17 134/74 H Room Air 09/05/22 11:05 09/05/22 11:05 09/05/22 11:05 09/05/22 11:05 08/23/22 10:36 Oxygen Delivery Method Room Air Weight: 102.058 kg Body Mass Index (BMI) 34.2 Physical Exam Narrative Patient is alert oriented to person, place and time.? Patient ambulates with assistance of a knee scooter on the left.? And diabetic shoe on the right. Vascular: There are atrophic changes of the skin such as thinning shiny taut appearance absent digital hair growth.? Pulses are grossly palpable 2 out of 4 dorsalis pedis and posterior tibial bilateral feet.? Mild +1 pitting edema to bilateral lower extremity. Neurologic: Light touch protective sensation completely absent to bilateral lower extremity. Dermatologic: Healed right hallux ulceration.?Digital wounds to left foot healed at this time.?Status post partial fifth ray amputation left foot with healthy granular wound at the distal aspect of the amputation site. Lateral fourth digit demonstrates healed blister with No signs of infection. Musculoskeletal: No gross wound forming deformity.?Muscular strength full to bilateral lower extremity compartments.? No crepitus or pain noted to the wound or periwound areas. Const alert, oriented x3 and no apparent distress General Appearance: cooperative HEENT normocephalic Eyes General Eye: normal appearance of both eyes Neck General: normal visual inspection Lymph Lymphatic: no lymphadenopathy noted and no lymphedema noted Resp normal respiratory effort Cardio regular rate and regular rhythm Extremity normal capillary refill, no joint enlargement, no calf tenderness and no pedal edema Skin no rashes or lesions noted, skin turgor normal and no jaundice Wound Narrative: Left foot: Partial fifth ray resection noted.? Wound site measures 1.2 cm x 1.2 cm x 0.1 cm.? There is healthy appearing skin about the ulcerative rim.?There is no erythema, no expressible purulent drainage, no malodor, no other localized signs of infection.? Wound demonstrates healthy granular layer with adequate tissue bleeding. Neuro moves all extremities Debridement Note Debridement Note No debridement was completed: No debridement was completed today Post-Debridement Measurements and Additional Note: Post-Debridement Measurements/Treatment - Nurse 1 - General Ulcer Assessment Start: 08/09/22 10:31 Freq: Status: Active Protocol: OSWALD.PAGE Activity Type Activity Date Activity User E-sign Co-sign Detail Recorded Client Recorded Date Recorded By Document 08/09/22 10:32 [id number] 08/09/22 10:34 Document 08/16/22 10:00 [facility] [id number] 08/16/22 10:05 [facility] Document 08/23/22 10:36 HI [id number] 08/23/22 10:43 HI Document 08/30/22 08:07 ML [id number] 08/30/22 08:16 ML 08/09/22 08/16/22 08/23/22 10:32 10:00 10:36 - Today's Visit Information Type of service Follow-up Visit Follow-up Visit Follow-up Visit (Physician/SEMIAUTOMATIC TAPER OPERATOR (Physician/SEMIAUTOMATIC TAPER OPERATOR (Physician/SEMIAUTOMATIC TAPER OPERATOR ) ) ) Arrival Mode Ambulatory Ambulatory, Ambulatory, Walker Other Arrival Mode (Other) knee walker knee walker Transfer Assistance None Accompanied by self Patient Identification Verified (Name & Yes Yes Yes ) Patient Requires Transmission-Based Precautions Safety Precautions Finger Stick Blood Sugar(mg/dl) (if indicated): Blood Sugar Height and Weight Body Mass Index (BMI) 34.2 34.2 34.2 BMI Classification Obese Obese Obese Vital Signs Temperature (97.8 F-99.1 F) 97.0 F L 96.6 F L Temperature Source Temporal Oral Pulse Rate (60-100) 58 L 89 Pulse Location Monitor Monitor Respiratory Rate (12-18) 18 Respiratory rate source Observation Oxygen Delivery Method Room Air Blood Pressure (90/60-120/80) 125/75 H 125/78 H Blood Pressure Mean (mm Hg) 91 93 Source Monitor Monitor Position Semi-Fowlers Sitting Blood Pressure Location Right Arm Left Arm Comment vitals obtained in [facility] just prior to this visit History Since Last Visit- (Skip if this is Patient's initial visit) Have you changed medications since your No No last visit? Any new allergies or adverse reactions No No Had a fall/change in ADL's that may No No increase risk of falls Signs or symptoms of abuse and/or No No neglect since last visit Have you been in the hospital since your No No No last visit? Has dressing in place as prescribed Yes Yes Yes Has compression in place as prescribed N/A Yes Yes Has offloadiing in place as prescribed N/A Yes Yes Experienced any changes in pain level or No No Yes management Left Footwear Regular Shoe Surgical Shoe Diabetic Shoe with pressure relief insole Right Footwear Regular Shoe Regular Shoe Regular Shoe Pain Scale: 0-10 Numeric Is Patient Pain Free? Yes Yes Yes 08/30/22 08:07 WC - Today's Visit Information Type of service Follow-up Visit (Physician/SEMIAUTOMATIC TAPER OPERATOR ) Arrival Mode Walker Arrival Mode (Other) Transfer Assistance None Accompanied by Patient Identification Verified (Name & Yes ) Patient Requires Transmission-Based No Precautions Safety Precautions NA Finger Stick Blood Sugar(mg/dl) (if 108 indicated): Blood Sugar Done During this Visit Height and Weight Body Mass Index (BMI) 34.2 BMI Classification Obese Vital Signs Temperature (97.8 F-99.1 F) 96.3 F L Temperature Source Temporal Pulse Rate (60-100) 83 Pulse Location Monitor Respiratory Rate (12-18) 16 Respiratory rate source Observation Oxygen Delivery Method Blood Pressure (90/60-120/80) 146/74 H Blood Pressure Mean (mm Hg) 98 Source Monitor Position Sitting Blood Pressure Location Left Arm Comment History Since Last Visit- (Skip if this is Patient's initial visit) Have you changed medications since your No last visit? Any new allergies or adverse reactions No Had a fall/change in ADL's that may increase risk of falls Signs or symptoms of abuse and/or No neglect since last visit Have you been in the hospital since your No last visit? Has dressing in place as prescribed Yes Has compression in place as prescribed Yes Has offloadiing in place as prescribed Yes Experienced any changes in pain level or No management Left Footwear Surgical Shoe with pressure relief insole Right Footwear Regular Shoe Pain Scale: 0-10 Numeric Is Patient Pain Free? Yes WC - Nurse 1 - General Ulcer Measurement Start: 08/09/22 10:31 Freq: Status: Active Protocol: Activity Type Activity Date Activity User E-sign Co-sign Detail Recorded Client Recorded Date Recorded By Document 08/09/22 10:32 KR [id number] 08/09/22 10:34 KR Document 08/16/22 10:00 BM [id number] 08/16/22 10:05 BMF Document 08/23/22 10:36 MT [id number] 08/23/22 10:43 MT Document 08/30/22 08:07 ML [id number] 08/30/22 08:16 ML 08/09/22 08/16/22 08/23/22 10:32 10:00 10:36 Wound Center Nurse 1 #10 LL FOOT -Combined with other wound No -Current Size (cm) - Length 2.3 2 2 -Current Size (cm) - Width 1.9 1.6 1.5 -Current Size (cm) - Depth 0.1 0.1 0.1 -Total Square Cm 4.37 3.2 3.0 -Date of Last Picture (Recall this 08/16/22 field) -Photo Taken Yes -Epithelialization Small 1-33% -Tunneling No -Undermining/Tunneling No -Circular Undermining No -Exudate Amt Small Medium Medium -Exudate Type Serosanguineous Serosanguineous Serosanguineous -Wound Margin Distinct, Distinct, Flat & Intact Outline Outline Attached Attached -Granulation Amt Medium (34-66%) Large (67-100%) Large (67-100%) -Granulation Quality [place] Red Pale,[place],Red -Slough/Fibrin Yes -Necrosis Amt None Present (0 Small (1-33%) Small (1-33%) %) -Necrotic Tissue Type Adherent Slough Adherent Slough -Texture ([place]-wound Skin Appearance) Assessed, Assessed Assessed,Callus Scarring -Moisture ([place]-wound Skin Appearance) No Abnormality, Assessed, Assessed Assessed Maceration -Color ([place]-wound Skin Appearance) No Abnormality, Assessed, Assessed Assessed Erythema -Temperature ([place]-wound Skin No Abnormality No Abnormality No Abnormality Appearance) (Pt Warm) (Pt Warm) (Pt Warm) -Tenderness on Palpation ([place]-wound No No No Skin Appearance) -Ulcer Cleansing Soap and Water Soap and Water Soap and Water -Foul Odor after Cleansing No No No -Anesthetic Used 5% Lidocaine 5% Lidocaine 5% Lidocaine Gel Gel Gel Left Calf (cm) 39 Left Ankle (cm) 28 08/30/22 08:07 Wound Center Nurse 1 #10 LL FOOT -Combined with other wound -Current Size (cm) - Length 1.8 -Current Size (cm) - Width 1.5 -Current Size (cm) - Depth 0.4 -Total Square Cm 2.70 -Date of Last Picture (Recall this field) -Photo Taken -Epithelialization -Tunneling -Undermining/Tunneling -Circular Undermining -Exudate Amt Medium -Exudate Type Serosanguineous -Wound Margin Distinct, Outline Attached -Granulation Amt -Granulation Quality -Slough/Fibrin Yes -Necrosis Amt Medium (34-66%) -Necrotic Tissue Type Adherent Slough -Texture ([place]-wound Skin Appearance) Assessed -Moisture ([place]-wound Skin Appearance) Assessed -Color ([place]-wound Skin Appearance) -Temperature ([place]-wound Skin No Abnormality Appearance) (Pt Warm) -Tenderness on Palpation ([place]-wound No Skin Appearance) -Ulcer Cleansing Soap and Water -Foul Odor after Cleansing -Anesthetic Used 5% Lidocaine Gel Left Calf (cm) Left Ankle (cm) WC - Nurse 2 - General Ulcer CM Notes Start: 08/09/22 10:31 Freq: Status: Active Protocol: Activity Type Activity Date Activity User E-sign Co-sign Detail Recorded Client Recorded Date Recorded By Document 08/09/22 12:44 PL [id number] 08/09/22 12:46 PL Document 08/16/22 13:44 PL [id number] 08/16/22 13:47 PL Document 08/23/22 12:02 PL [id number] 08/23/22 12:04 PL Document 08/30/22 12:00 PL [id number] 08/30/22 12:02 PL 08/09/22 08/16/22 08/23/22 12:44 13:44 12:02 Wound Center Nurse 2 #10 LL FOOT -Time 11:02 10:08 11:29 -Correct Patient Yes Yes Yes -Correct Side, Site, Position Yes Yes Yes -Correct Procedure Yes Yes Yes -Procedure Performed Yes Yes Yes -Type of Procedure Debridement Debridement Debridement -Clinical Debridement Subcutaneous Subcutaneous Subcutaneous -Tissue Removed Subcutaneous Subcutaneous Subcutaneous -Post Debridement (cm) - Length 2.2 2.0 1.4 -Post Debridement (cm) - Width 1.8 1.8 1.4 -Post Debridement (cm) - Depth 0.1 0.1 0.1 -Total Square (Post) (cm) 3.96 3.60 1.96 -Area of Debridement (cm) - Length 2.2 2.0 1.4 -Area of Debridement (cm) - Width 1.8 1.8 1.4 -Total Square (Area) (cm) 3.96 3.60 1.96 -Tunneling No No No -Undermining/Tunneling No No No -Circular Undermining No No No -Wound/Ulcer Outcome Not Healed Not Healed Not Healed -Ulcer Cleansing Rinsed/ Rinsed/ Rinsed/ Irrigated with Irrigated with Irrigated with Saline Saline Saline -Foul Odor after Cleansing No No No -Bioengineered Tissue Yes Yes Yes -Type of Bioengineered Tissue Epifix Epifix Epifix 18mm Disc -Expiration Date 02/07/27 02/07/27 05/10/27 -Product Lot Number [id number] -Percent Used 100 100 100 -Bleeding Controlled with Pressure Pressure Pressure -Treatment Response Procedure Procedure Procedure Tolerated Well Tolerated Well Tolerated Well -Debridement - Subq, 1st 20sq cm No No No -Apply Skin Sub - 1st 25 sq cm - Feet 1 1 1 -Epifix (per sq cm) 4 4 -Epifix 18mm Disc 3 Pain Scale: 0-10 Numeric Is Patient Pain Free? Yes Yes Yes 08/30/22 12:00 Wound Center Nurse 2 #10 FOOT -Time 09:24 -Correct Patient Yes -Correct Side, Site, Position Yes -Correct Procedure Yes -Procedure Performed Yes -Type of Procedure Debridement -Clinical Debridement Subcutaneous -Tissue Removed Subcutaneous -Post Debridement (cm) - Length 1.5 -Post Debridement (cm) - Width 1.6 -Post Debridement (cm) - Depth 0.1 -Total Square (Post) (cm) 2.40 -Area of Debridement (cm) - Length 1.5 -Area of Debridement (cm) - Width 1.6 -Total Square (Area) (cm) 2.40 -Tunneling No -Undermining/Tunneling No -Circular Undermining No -Wound/Ulcer Outcome Not Healed -Ulcer Cleansing Rinsed/ Irrigated with Saline -Foul Odor after Cleansing No -Bioengineered Tissue Yes -Type of Bioengineered Tissue Epifix 18mm Disc -Expiration Date 05/10/27 -Product Lot Number [id number] -Percent Used 100 -Bleeding Controlled with Pressure -Treatment Response Procedure Tolerated Well -Debridement - Subq, 1st 20sq cm No -Apply Skin Sub - 1st 25 sq cm - Feet 1 -Epifix (per sq cm) -Epifix 18mm Disc 3 Pain Scale: 0-10 Numeric Is Patient Pain Free? Yes WC - Nurse 3 - General Ulcer D/C NN Start: 08/09/22 10:31 Freq: Status: Active Protocol: Activity Type Activity Date Activity User E-sign Co-sign Detail Recorded Client Recorded Date Recorded By Document 08/09/22 12:26 KR [id number] 08/09/22 12:26 KR Document 08/16/22 10:24 DL [id number] 08/16/22 10:25 DL Document 08/23/22 12:04 AK [id number] 08/23/22 12:05 AK Document 08/30/22 09:40 AK [id number] 08/30/22 09:40 AK 08/09/22 08/16/22 08/23/22 12:26 10:24 12:04 Wound Care Nurse 3 #10 LL FOOT -Ulcer Cleansing Not Cleansed -Foul Odor after Cleansing No -Other Dressing epifix ABD and coban to hold dressing in place. PT. request -Primary Dressing Covered/Secured with Dry Gauze,Dry Dry Gauze & Dry Gauze & Gauze & Roll Roll Gauze, Roll Gauze, Gauze,Secured Secured with Secured with with Tape Tape Tape Left -Compression Wrap Kirill Wrap Kirill Wrap Treatment Response Procedure Tolerated Well Pain Scale: 0-10 Numeric Is Patient Pain Free? Yes Yes No WC - Visit Discharge Discharge Condition Stable Stable Stable Ambulatory Status Ambulatory Ambulatory, Ambulatory,Cane Walker Transportation Private Auto Private Auto Private Auto Accompanied by caregiver Medication Reconcilliation completed & Yes provided to patient/care provider Clinical Summary of Care Provided Yes 08/30/22 09:40 Wound Care Nurse 3 #10 LL FOOT -Ulcer Cleansing -Foul Odor after Cleansing -Other Dressing ABD and kirill -Primary Dressing Covered/Secured with Dry Gauze & Roll Gauze, Secured with Tape Left -Compression Wrap Treatment Response Pain Scale: 0-10 Numeric Is Patient Pain Free? 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 POV #24 (DOS: 03/24/2022) POD #167 Left lower extremity: No edema noted. Fifth digit amputation noted. Previous A1c from March and May both 10.5%. He had seen endocrinology today and has demonstrated mild reduction of his A1c down to 9.9%.? He had had previous difficulties performing HBO dives due to uncontrolled sugars recent sugars more stable he will look to perform dive tomorrow 09/07/2022. I discussed that despite this minimal improvement in his A1c he needs to continue diet modifications for proper glycemic control to aid in his healing and overall health.?He was encouraged to continue routine follow-ups with furnace repairer helper so that he may get his blood sugars under control and achieve a lower A1c. Infection: During surgical intervention 03/24/22 the tissues demonstrated normal integrity and were not easily dissectible through fascial planes with a finger as seen with typical necrotizing fasciitis cases.?He did however have soft tissue crepitus with foul odor consistent with a gas gangrene, confirmed by radiograph on 03/24/2022.? 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 WBC 16.3 with left shift prior to surgical intervention.?WBC currently within normal limits.? He is finished IV antibiotic course and PICC line removed. Sx Cultures: Culture of wound/ulceration &?Bone culture fifth toe/fifth metatarsal demonstrates staph epi, Enterococcus faecalis, Streptococcus mitis/oralis, Turicella otitidis, Enterococcus casseliflavius, Peptostreptococcus prevotil, Prevotella bivia.? Cultures post surgical clearance demonstrate no growth. Wound: Wound underwent debridement as noted in clinical panel above today. Healthy granular tissue noted with no localized signs of infection.? No purulent drainage noted, no malodor noted.? Wound is continuing to granulate in well. He underwent debridement of the necrotic 4th metatarsal head on 05/24/22.?Radiograp hs were ordered of the left foot 05/31/22. Radiographs demonstrate: Amputation of the fifth metatarsal at the level of the mid diaphysis.?There is interval development of osseous destruction of the base of the fourth proximal phalanx and distal fourth metatarsal suspicious of osteomyelitis.Further debridement was performed on 05/31/22 removing nonviable tissue/bone in the base of his proximal phalanx of the fourth digit.?Wound measures 1.2 cm x 1.2 cm x 0.1 cm.? He has resumed hyperbaric dives following tube placement. He was approved for epi fix graft.? Epi fix mesh graft #[address] to the wound bed today. He is not to get the dressing wet and to leave the dressings clean, dry, and intact to the left foot.? No expressible purulent drainage noted.?There is continued improvement in the appearance of his wound today with continued reduction in size. I will continue to monitor him for any progressing signs of infection.?He is aware that further surgical intervention may be required pending his progress. I will look to obtain additional approval for 2 more epi fix grafts to continue healing as he has demonstrated continued reduction of his wound size. Dressings: Epi fix mesh graft, Adaptic touch and anchored with Steri-Strips with dry sterile dressing.? He was instructed to keep his dressings clean, dry, and intact to the left foot.?Continue to elevate the left lower extremity at all times of rest.? He was instructed that if his dressing falls off or gets removed prior to his next visit he is to return to Dakin's wet-to-dry dressings.? He voices understanding of that. Patient is to remain nonweightbearing to the left lower extremity with assistance of a knee scooter. He may be partial weight bearing to Left heel for bathroom privileges and transfers. Visiting nursing to assist in dressing changes to the left foot. He will return to the wound care center in 1 week for continued localized wound care and close monitoring. Note: jellyfish speech recognition kettle chipper software was used to create portions of this document. Sound-alike and misspelled words, as well as other kettle chipper errors may be contained in the documentation.
[2022-09-06 12:24] VITALS: BP 126/72; PULSE 69; TEMP 35.4; BMI 34.2
== END 2022-09-08 23:59 | disposition home or self-care (01) ==
LOC: WC 11:15
PROVIDERS: PCP Internal Medicine; Referring Provider Podiatrist; Visit Provider Student in an Organized Health Care Education/Training Program
DX: E11.621 Type 2 diabetes mellitus with foot ulcer (principal); A48.0 Gas gangrene; E08.621 Diabetes mellitus due to underlying condition with foot ulcer; Z89.422 Acquired absence of other left toe(s); L97.522 Non-pressure chronic ulcer of other part of left foot with fat layer exposed; L97.512 Non-pressure chronic ulcer of other part of right foot with fat layer exposed; L97.504 Non-pressure chronic ulcer of other part of unspecified foot with necrosis of bone; M86.9 Osteomyelitis, unspecified; E11.42 Type 2 diabetes mellitus with diabetic polyneuropathy; E11.649 Type 2 diabetes mellitus with hypoglycemia without coma; E11.22 Type 2 diabetes mellitus with diabetic chronic kidney disease; N18.5 Chronic kidney disease, stage 5; I25.10 Atherosclerotic heart disease of native coronary artery without angina pectoris; Z86.16 Personal history of COVID-19
CPT/HCPCS: 15275; 69210; 82962; 99183; 99211; 99213; Q4186; G0277; G0463

== ENCOUNTER 2022-09-27 08:15 | Outpatient (RCR) | payer MEDICARE, MEDICAID, SELFPAY ==
[2022-09-09 00:22] VITALS: BP 126/72; PULSE 69; RESP 17; TEMP 35.4; BMI 34.2
--- NOTE | 2022-09-11 08:17 | HBO.PN.PCM_ITS ---
History of Present Illness Date of Service: 09/06/22 Chief Complaint: Osteomyelitis of the left foot; diabetic foot ulceration History of Wound: Patient is a 51-year-old male who presents to the wound care center for evaluation for hyperbaric oxygen therapy. He has been seeing Dr. 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 His ulcer is not making the progress that it should. He has a Gustafson stage III ulcer on his left foot. He uses a knee scooter. 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 There is interval development of osseous destruction of the head and distal diaphysis of the fourth metatarsal and base of the fourth proximal phalanx. Arterial study from 01/09/22, Right RANJAN - 1.19, Left RANJAN - NC, Left digital- brachial index is 0.67. The left digital-brachial index is mildly diminished. There is evidence of arterial calcification at ankle level on the left. Arterial flow appears normal at ankle level bilaterally, and at digital level on the right. There is evidence of mild arterial occlusive disease at digital level on the left. MRI of left lower extremity from 10/07/19 showed Marrow edema consistent osteomyelitis of the distal phalanges of the fourth and fifth toes. Soft tissue swelling. He has a history of DM Type II, last HgA1c 10.5 on 05/31/22, Kidney transplant one year ago, peripheral vascular disease, atherosclerotic heart disease, AMI, neuropathy, and GERD. He has received cardiac clearance from Dr. Oneill. Chest x-ray from 05/31/22 is normal. Today he denies fever, chills, nausea, vomiting. Patient has been having issues with his left TM, he was sent to ENT and an ear tube was place in the left ear only on 07/17/22. Patient has been approved for 30 treatment of hyperbaric oxygen therapy. Progress of Wound: Today is the 24th? treatment of hyperbaric oxygen therapy.? The patient is scheduled for 30 treatments total. Unfortunately the patient had a Dexcom placed on September 06, 2022. This prohibits the patient from participating in hyperbaric oxygen therapy as it is not currently approved. Objective Data Objective Data Vital Signs: Vital Signs Temp Pulse Resp BP 95.8 F L 69 17 126/72 H 09/09/22 00:22 09/09/22 00:22 09/09/22 00:22 09/09/22 00:22 Weight: 225 lb Body Mass Index (BMI) 34.2 Exam Physical Exam Const alert, oriented x3 and no apparent distress HEENT HEENT Narrative: Tympanostomy tube present and patent left TM Psych mental status grossly normal, thought process normal, cooperative, affect normal and speech normal Assessment/Plan Assessment/Plan (1) Osteomyelitis of metatarsal: CODE(S): M86.9 - Osteomyelitis, unspecified (2) 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 exposed: CODE(S): L97.522 - 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 exposed (3) Type 2 diabetes mellitus with diabetic polyneuropathy: CODE(S): E11.42 - Type 2 diabetes mellitus with diabetic polyneuropathy PLAN: Plan Unable to dive until Dexcom has been removed.
[2022-09-11 10:36] LABS: Bedside Glucose 269 mg/dL (74-106)
--- NOTE | 2022-09-11 12:24 | WC ---
Pt is now wearing a dexcom glucose monitor which is prohibited in the chamber. informed and has decided to stop HBO tx at this time.
[2022-09-11 12:50] LABS: Bedside Glucose 247 mg/dL (74-106)
[2022-09-13 07:59] VITALS: BP 133/76; PULSE 88; RESP 18; TEMP 36.5; BMI 34.2
--- NOTE | 2022-09-13 08:23 | PCM.WC.PN ---
History of Present Illness Date of Service: 09/13/22 Chief Complaint: Osteomyelitis of the left foot; diabetic foot ulceration History of Wound: Patient is a 51-year-old male who presents to the wound care center for evaluation for hyperbaric oxygen therapy. He has been seeing Dr. 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 His ulcer is not making the progress that it should. He has a Gustafson stage III ulcer on his left foot. He uses a knee scooter. 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 There is interval development of osseous destruction of the head and distal diaphysis of the fourth metatarsal and base of the fourth proximal phalanx. Arterial study from 01/09/22, Right RANJAN - 1.19, Left RANJAN - NC, Left digital-brachial index is 0.67. The left digital-brachial index is mildly diminished. There is evidence of arterial calcification at ankle level on the left. Arterial flow appears normal at ankle level bilaterally, and at digital level on the right. There is evidence of mild arterial occlusive disease at digital level on the left. MRI of left lower extremity from 10/07/19 showed Marrow edema consistent osteomyelitis of the distal phalanges of the fourth and fifth toes. Soft tissue swelling. He has a history of DM Type II, last HgA1c 10.5 on 05/31/22, Kidney transplant one year ago, peripheral vascular disease, atherosclerotic heart disease, AMI, neuropathy, and GERD. He has received cardiac clearance from Dr. Oneill. Chest x-ray from 05/31/22 is normal. Today he denies fever, chills, nausea, vomiting. Patient has been having issues with his left TM, he was sent to ENT and an ear tube was place in the left ear only on 07/17/22. Patient has been approved for 30 treatment of hyperbaric oxygen therapy. Progress of Wound: Today is the 24th? treatment of hyperbaric oxygen therapy.? The patient is scheduled for 30 treatments total. Unfortunately the patient had a Dexcom placed on September 06, 2022. This prohibits the patient from participating in hyperbaric oxygen therapy as it is not currently approved. 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 He did not complete HBO dive today or yesterday.? He was recently evaluated by his performance improvement coordinator and has had improvement in lowering his A1c.? Due to his new glucose meter he will be unable to continue further HBO dives. He is pleased with his continued healing progress. He has been changing the outer dressings to the left foot as needed.? He denies any constitutional symptoms.?He continues to deny any pain today.?He has no further complaints today. Objective Data Objective Data Vital Signs: Vital Signs Temp Pulse Resp BP 97.7 F L 88 18 133/76 H 09/13/22 07:59 09/13/22 07:59 09/13/22 07:59 09/13/22 07:59 Weight: 102.058 kg Body Mass Index (BMI) 34.2 Physical Exam Narrative Patient is alert oriented to person, place and time.? Patient ambulates with assistance of a knee scooter on the left.? And diabetic shoe on the right. Vascular: There are atrophic changes of the skin such as thinning shiny taut appearance absent digital hair growth.? Pulses are grossly palpable 2 out of 4 dorsalis pedis and posterior tibial bilateral feet.? Mild +1 pitting edema to bilateral lower extremity. Neurologic: Light touch protective sensation completely absent to bilateral lower extremity. Dermatologic: Healed right hallux ulceration.?Digital wounds to left foot healed at this time.?Status post partial fifth ray amputation left foot with healthy granular wound at the distal aspect of the amputation site. No signs of infection. Musculoskeletal: No gross wound forming deformity.?Muscular strength full to bilateral lower extremity compartments.? No crepitus or pain noted to the wound or periwound areas. Const alert, oriented x3 and no apparent distress General Appearance: cooperative HEENT normocephalic Eyes General Eye: normal appearance of both eyes Neck General: normal visual inspection Lymph Lymphatic: no lymphadenopathy noted and no lymphedema noted Resp normal respiratory effort Cardio regular rate and regular rhythm Extremity normal capillary refill, no joint enlargement, no calf tenderness and no pedal edema Skin no rashes or lesions noted, skin turgor normal and no jaundice Wound Narrative: Left foot: Partial fifth ray resection noted.? Wound site measures 1.5 cm x 1.4 cm x 0.1 cm.? There is healthy appearing skin about the ulcerative rim.?There is no erythema, no expressible purulent drainage, no malodor, no other localized signs of infection.? Wound demonstrates healthy granular layer with adequate tissue bleeding. Neuro moves all extremities Debridement Note Debridement Note Wound debrided: Fifth metatarsal amputation stump Laterality: Left Wound Grade/Stage: Gustafson stage III Type of Debridement: Excisional debridement Anesthesia Used: 5% Lidocaine Gel Depth: Down to and including healthy tissue and in the subcutaneous layer Percentage of wound debrided: 100 Instrument Used: 3mm curette Tissue Removed: Fibrous, devitalized subcutaneous, biofilm, slough Severity: Fat Layer Exposed Amount of bleeding with debridement: Mild Bleeding Controlled with: Compression and gauze Patient tolerated procedure: Patient tolerated procedure well Post-Debridement Measurements and Additional Note: Post-Debridement Measurements/Treatment OSWALD - Nurse 1 - General Ulcer Assessment Start: 09/11/22 16:14 Freq: Status: Active Protocol: HOLLY Activity Type Activity Date Activity User E-sign Co-sign Detail Recorded Client Recorded Date Recorded By Document 09/13/22 07:59 CARLINE [id number] 09/13/22 08:01 CARLINE 09/13/22 07:59 - Today's Visit Information Type of service Follow-up Visit (Physician/PATIENT SERVICE SPECIALIST ) Arrival Mode Ambulatory, Walker Patient Requires Transmission-Based Yes Precautions Safety Precautions NA Finger Stick Blood Sugar(mg/dl) (if 220 indicated): Blood Sugar Stated by Patient Height and Weight Body Mass Index (BMI) 34.2 BMI Classification Obese Vital Signs Temperature (97.8 F-99.1 F) 97.7 F L Temperature Source Temporal Pulse Rate (60-100) 88 Pulse Location Monitor Respiratory Rate (12-18) 18 Respiratory rate source Observation Blood Pressure (90/60-120/80) 133/76 H Blood Pressure Mean (mm Hg) 95 Source Monitor Position Semi-Fowlers Blood Pressure Location Left Arm History Since Last Visit- (Skip if this is Patient's initial visit) Have you changed medications since your No last visit? Any new allergies or adverse reactions No Had a fall/change in ADL's that may No increase risk of falls Signs or symptoms of abuse and/or No neglect since last visit Have you been in the hospital since your No last visit? Has dressing in place as prescribed Yes Has compression in place as prescribed Yes Has offloadiing in place as prescribed Yes Experienced any changes in pain level or No management Left Footwear Surgical Shoe with pressure relief insole Right Footwear Regular Shoe Pain Scale: 0-10 Numeric Is Patient Pain Free? Yes WC - Nurse 1 - General Ulcer Measurement Start: 09/11/22 16:14 Freq: Status: Active Protocol: Activity Type Activity Date Activity User E-sign Co-sign Detail Recorded Client Recorded Date Recorded By Document 09/13/22 07:59 CARLINE [id number] 09/13/22 08:01 CARLINE 09/13/22 07:59 Wound Center Nurse 1 #10 LL FOOT -Combined with other wound No -Current Size (cm) - Length 1.3 -Current Size (cm) - Width 1.1 -Current Size (cm) - Depth 0.1 -Total Square Cm 1.43 -Photo Taken Yes -Epithelialization Small 1-33% -Tunneling No -Undermining/Tunneling No -Circular Undermining No -Exudate Amt Medium -Exudate Type Serosanguineous -Wound Margin Flat & Intact -Granulation Amt Large (67-100%) -Granulation Quality Red -Slough/Fibrin Yes -Necrosis Amt Small (1-33%) -Necrotic Tissue Type Adherent Slough -Structure Exposed N/A -Texture (Dunia-wound Skin Appearance) Assessed -Moisture ([place]ia-wound Skin Appearance) Assessed, Maceration -Color ([place]ia-wound Skin Appearance) Assessed -Temperature ([place]-wound Skin No Abnormality Appearance) (Pt Warm) -Tenderness on Palpation ([place]ia-wound No Skin Appearance) -Ulcer Cleansing Wound Cleanser -Foul Odor after Cleansing No -Anesthetic Used 5% Lidocaine Gel Lower Limb Edema Present Yes Left Calf (cm) 39.5 Left Ankle (cm) 24.5 Assessment/Plan Assessment/Plan (1) Diabetic foot ulcer: CODE(S): E11.621 - Type 2 diabetes mellitus with foot ulcer; L97.509 - Non-pressure chronic ulcer of other part of unspecified foot with unspecified severity QUALIFIERS: Diabetes mellitus type: type 2 Laterality: left Non-pressure ulcer stage: with necrosis of bone (2) 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 exposed: CODE(S): L97.522 - 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 exposed (3) 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: CODE(S): Z89.422 - Acquired absence of other left toe(s) (4) Type 2 diabetes mellitus with diabetic polyneuropathy: CODE(S): E11.42 - Type 2 diabetes mellitus with diabetic polyneuropathy (5) Diabetic ulcer of foot associated with diabetes mellitus due to underlying condition, with necrosis of bone: CODE(S): E08.621 - Diabetes mellitus due to underlying condition with foot ulcer; L97.504 - Non-pressure chronic ulcer of other part of unspecified foot with necrosis of bone PLAN: Plan Patient seen and evaluated in wound care center He is?s/p I&D gas gangrene left foot with partial fifth ray amputation and excision of chronic diabetic ulceration.? POV #25 (DOS: 03/24/2022) POD #174 Left lower extremity: No edema noted. Fifth digit amputation noted. Previous A1c from March and May both 10.5%.? He had seen endocrinology and has demonstrated mild reduction of his A1c down to 9.9%.? He had had previous difficulties performing HBO dives due to uncontrolled sugars. Due to his new glucose meter he will be unable to perform further HBO dives. I discussed that despite this minimal improvement in his A1c he needs to continue diet modifications for proper glycemic control to aid in his healing and overall health.?He was encouraged to continue routine follow-ups with performance improvement coordinator so that he may get his blood sugars under control and achieve a lower A1c. Infection: During surgical intervention 03/24/22 the tissues demonstrated normal integrity and were not easily dissectible through fascial planes with a finger as seen with typical necrotizing fasciitis cases.?He did however have soft tissue crepitus with foul odor consistent with a gas gangrene, confirmed by radiograph on 03/24/2022.? 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 WBC 16.3 with left shift prior to surgical intervention.?WBC currently within normal limits.? He is finished IV antibiotic course and PICC line removed. Sx Cultures: Culture of wound/ulceration &?Bone culture fifth toe/fifth metatarsal demonstrates staph epi, Enterococcus faecalis, Streptococcus mitis/oralis, Turicella otitidis, Enterococcus casseliflavius, Peptostreptococcus prevotil, Prevotella bivia.? Cultures post surgical clearance demonstrate no growth. Wound: Wound underwent debridement as noted in clinical panel above today. Healthy granular tissue noted with no localized signs of infection.? No purulent drainage noted, no malodor noted.? Wound is continuing to granulate in well. He underwent debridement of the necrotic 4th metatarsal head on 05/24/22.?Radiographs were ordered of the left foot 05/31/22. Radiographs demonstrate: Amputation of the fifth metatarsal at the level of the mid diaphysis.?There is interval development of osseous destruction of the base of the fourth proximal phalanx and distal fourth metatarsal suspicious of osteomyelitis. Further debridement was performed on 05/31/22 removing nonviable tissue/bone in the base of his proximal phalanx of the fourth digit.?Wound measures 1.5 cm x 1.4 cm x 0.1 cm.?He was approved for 2 additional epi fix grafts.? Epi fix mesh graft #11 applied to the wound bed today. He is not to get the dressing wet and to leave the dressings clean, dry, and intact to the left foot.? No expressible purulent drainage noted.?There is continued improvement in the appearance of his wound today with continued reduction in size. I will continue to monitor him for any progressing signs of infection.?He is aware that further surgical intervention may be required pending his progress.? Dressings: Epi fix mesh graft, Adaptic touch and anchored with Steri-Strips with dry sterile dressing.? He was instructed to keep his dressings clean, dry, and intact to the left foot.?Continue to elevate the left lower extremity at all times of rest.? He was instructed that if his dressing falls off or gets removed prior to his next visit [facility].? He voices understanding of that. Patient is to remain nonweightbearing to the left lower extremity with assistance of a knee scooter. He may be partial weight bearing to Left heel for bathroom privileges and transfers. Visiting nursing to assist in dressing changes to the left foot. He will return to the wound care center in 1 week for continued localized wound care and close monitoring. Note: [employer] speech recognition delivery assistant software was used to create portions of this document. Sound-alike and misspelled words, as well as other delivery assistant errors may be contained in the documentation
[2022-09-20 08:07] VITALS: BP 156/72; PULSE 92; TEMP 36.1; BMI 34.2
--- NOTE | 2022-09-20 09:17 | PN.PCM_ITS ---
History of Present Illness Date of Service: 09/20/22 Chief Complaint: Osteomyelitis of the left foot; diabetic foot ulceration History of Wound: Patient is a 51-year-old male who presents to the wound care center for evaluation for hyperbaric oxygen therapy. He has been seeing Dr. 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 His ulcer is not making the progress that it should. He has a Gustafson stage III ulcer on his left foot. He uses a knee scooter. 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 There is interval development of osseous destruction of the head and distal diaphysis of the fourth metatarsal and base of the fourth proximal phalanx. Arterial study from 01/09/22, Right RANJAN - 1.19, Left RANJAN - NC, Left digital- brachial index is 0.67. The left digital-brachial index is mildly diminished. There is evidence of arterial calcification at ankle level on the left. Arterial flow appears normal at ankle level bilaterally, and at digital level on the right. There is evidence of mild arterial occlusive disease at digital level on the left. MRI of left lower extremity from 10/07/19 showed Marrow edema consistent osteomyelitis of the distal phalanges of the fourth and fifth toes. Soft tissue swelling. He has a history of DM Type II, last HgA1c 10.5 on 05/31/22, Kidney transplant one year ago, peripheral vascular disease, atherosclerotic heart disease, AMI, neuropathy, and GERD. He has received cardiac clearance from Dr. Oneill. Chest x-ray from 05/31/22 is normal. Today he denies fever, chills, nausea, vomiting. Patient has been having issues with his left TM, he was sent to ENT and an ear tube was place in the left ear only on 07/17/22. Patient has been approved for 30 treatment of hyperbaric oxygen therapy. Progress of Wound: Today is the 24th? treatment of hyperbaric oxygen therapy.? The patient is scheduled for 30 treatments total. Unfortunately the patient had a Dexcom placed on September 06, 2022. This prohibits the patient from participating in hyperbaric oxygen therapy as it is not currently approved. 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 He is pleased with his continued healing progress. He has been changing the outer dressings to the left foot as needed and has left his graft in place.? He denies any constitutional symptoms.?He continues to deny any pain today.?He has no further complaints today. Objective Data Objective Data Vital Signs: Vital Signs Temp Pulse Resp BP 97.0 F L 92 18 156/72 H 09/20/22 08:07 09/20/22 08:07 09/13/22 07:59 09/20/22 08:07 Weight: 102.058 kg Body Mass Index (BMI) 34.2 Physical Exam Narrative Patient is alert oriented to person, place and time.? Patient ambulates with assistance of a knee scooter on the left.? And diabetic shoe on the right. Vascular: There are atrophic changes of the skin such as thinning shiny taut appearance absent digital hair growth.? Pulses are grossly palpable 2 out of 4 dorsalis pedis and posterior tibial bilateral feet.? Mild +1 pitting edema to bilateral lower extremity. Neurologic: Light touch protective sensation completely absent to bilateral lower extremity. Dermatologic: Healed right hallux ulceration.?Digital wounds to left foot healed at this time.?Status post partial fifth ray amputation left foot with healthy granular wound at the distal aspect of the amputation site. No signs of infection. Musculoskeletal: No gross wound forming deformity.?Muscular strength full to bilateral lower extremity compartments.? No crepitus or pain noted to the wound or periwound areas. Const alert, oriented x3 and no apparent distress General Appearance: cooperative HEENT normocephalic Eyes General Eye: normal appearance of both eyes Neck General: normal visual inspection Lymph Lymphatic: no lymphadenopathy noted and no lymphedema noted Resp normal respiratory effort Cardio regular rate and regular rhythm Extremity normal capillary refill, no joint enlargement, no calf tenderness and no pedal edema Skin no rashes or lesions noted, skin turgor normal and no jaundice Wound Narrative: Left foot: Partial fifth ray resection noted.? Wound site measures 1.5 cm x 0.8 cm x 0.1 cm.? There is healthy appearing skin about the ulcerative rim.?There is no erythema, no expressible purulent drainage, no malodor, no other localized signs of infection.? Wound demonstrates healthy granular layer with adequate tissue bleeding. Neuro moves all extremities Debridement Note Debridement Note No debridement was completed: No debridement was completed today Post-Debridement Measurements and Additional Note: Post-Debridement Measurements/Treatment - Nurse 1 - General Ulcer Assessment Start: 09/11/22 16:14 Freq: Status: Active Protocol: HOLLY Activity Type Activity Date Activity User E-sign Co-sign Detail Recorded Client Recorded Date Recorded By Document 09/13/22 07:59 JF [id number] 09/13/22 08:01 JF Document 09/20/22 08:07 KR [id number] 09/20/22 08:08 KR 09/13/22 09/20/22 07:59 08:07 - Today's Visit Information Type of service Follow-up Visit Follow-up Visit (Physician/ADVERTISING REP (Physician/ADVERTISING REP ) ) Arrival Mode Ambulatory, Ambulatory Walker Patient Identification Verified (Name & Yes ) Patient Requires Transmission-Based Yes Precautions Safety Precautions NA Finger Stick Blood Sugar(mg/dl) (if 220 indicated): Blood Sugar Stated by Patient Height and Weight Body Mass Index (BMI) 34.2 34.2 BMI Classification Obese Obese Vital Signs Temperature (97.8 F-99.1 F) 97.7 F L 97.0 F L Temperature Source Temporal Temporal Pulse Rate (60-100) 88 92 Pulse Location Monitor Monitor Respiratory Rate (12-18) 18 Respiratory rate source Observation Blood Pressure (90/60-120/80) 133/76 H 156/72 H Blood Pressure Mean (mm Hg) 95 100 Source Monitor Monitor Position Semi-Fowlers Sitting Blood Pressure Location Left Arm Right Arm History Since Last Visit- (Skip if this is Patient's initial visit) Have you changed medications since your No No last visit? Any new allergies or adverse reactions No No Had a fall/change in ADL's that may No No increase risk of falls Signs or symptoms of abuse and/or No No neglect since last visit Have you been in the hospital since your No No last visit? Has dressing in place as prescribed Yes Yes Has compression in place as prescribed Yes N/A Has offloadiing in place as prescribed Yes N/A Experienced any changes in pain level or No No management Left Footwear Surgical Shoe Regular Shoe with pressure relief insole Right Footwear Regular Shoe Regular Shoe Pain Scale: 0-10 Numeric Is Patient Pain Free? Yes Yes WC - Nurse 1 - General Ulcer Measurement Start: 09/11/22 16:14 Freq: Status: Active Protocol: Activity Type Activity Date Activity User E-sign Co-sign Detail Recorded Client Recorded Date Recorded By Document 09/13/22 07:59 JF [id number] 09/13/22 08:01 JF Document 09/20/22 08:07 KR [id number] 09/20/22 08:08 KR 09/13/22 09/20/22 07:59 08:07 Wound Center Nurse 1 #10 LL FOOT -Combined with other wound No -Current Size (cm) - Length 1.3 0.1 -Current Size (cm) - Width 1.1 0.1 -Current Size (cm) - Depth 0.1 0.1 -Total Square Cm 1.43 0.01 -Photo Taken Yes -Epithelialization Small 1-33% -Tunneling No -Undermining/Tunneling No -Circular Undermining No -Exudate Amt Medium -Exudate Type Serosanguineous -Wound Margin Flat & Intact -Granulation Amt Large (67-100%) -Granulation Quality Red -Slough/Fibrin Yes -Necrosis Amt Small (1-33%) -Necrotic Tissue Type Adherent Slough -Structure Exposed N/A -Texture (Dunia-wound Skin Appearance) Assessed -Moisture (Dunia-wound Skin Appearance) Assessed, Maceration -Color (Duina-wound Skin Appearance) Assessed -Temperature (Dunia-wound Skin No Abnormality Appearance) (Pt Warm) -Tenderness on Palpation (Dunia-wound No Skin Appearance) -Ulcer Cleansing Wound Cleanser -Foul Odor after Cleansing No -Anesthetic Used 5% Lidocaine Gel Lower Limb Edema Present Yes Left Calf (cm) 39.5 Left Ankle (cm) 24.5 WC - Nurse 2 - General Ulcer CM Notes Start: 09/11/22 16:14 Freq: Status: Active Protocol: Activity Type Activity Date Activity User E-sign Co-sign Detail Recorded Client Recorded Date Recorded By Document 09/13/22 09:09 PL [id number] 09/13/22 09:11 PL 09/13/22 09:09 Wound Center Nurse 2 -Time 08:34 -Correct Patient Yes -Correct Side, Site, Position Yes -Correct Procedure Yes -Procedure Performed Yes -Type of Procedure Debridement -Clinical Debridement Subcutaneous -Tissue Removed Subcutaneous -Post Debridement (cm) - Length 1.5 -Post Debridement (cm) - Width 1.4 -Post Debridement (cm) - Depth 0.1 -Total Square (Post) (cm) 2.10 -Area of Debridement (cm) - Length 1.5 -Area of Debridement (cm) - Width 1.4 -Total Square (Area) (cm) 2.10 -Tunneling No -Undermining/Tunneling No -Circular Undermining No -Wound/Ulcer Outcome Not Healed -Ulcer Cleansing Rinsed/ Irrigated with Saline -Foul Odor after Cleansing No -Bioengineered Tissue Yes -Type of Bioengineered Tissue Epifix 18mm Disc -Expiration Date 05/10/27 -Product Lot Number [id number] -Percent Used 100 -Bleeding Controlled with Pressure -Treatment Response Procedure Tolerated Well -Debridement - Subq, 1st 20sq cm No -Apply Skin Sub - 1st 25 sq cm - Feet 1 -Epifix 18mm Disc 3 Pain Scale: 0-10 Numeric Is Patient Pain Free? Yes - Nurse 3 - General Ulcer D/C NN Start: 09/11/22 16:14 Freq: Status: Active Protocol: Activity Type Activity Date Activity User E-sign Co-sign Detail Recorded Client Recorded Date Recorded By Document 09/13/22 08:51 KELLIE [id number] 09/13/22 08:51 KELLIE 09/13/22 08:51 Wound Care Nurse 3 #10 LL FOOT -Foul Odor after Cleansing No -Negative Pressure Wound Therapy N/A -Primary Dressing Covered/Secured with Dry Gauze & Roll Gauze, Secured with Tape -Other Covering arielle Pain Scale: 0-10 Numeric Is Patient Pain Free? Yes WC - Visit Discharge Discharge Condition Stable Ambulatory Status Ambulatory Transportation Private Auto Medication Reconcilliation completed & Yes provided to patient/care provider Clinical Summary of Care Provided Yes Assessment/Plan Assessment/Plan (1) Diabetic foot ulcer: CODE(S): E11.621 - Type 2 diabetes mellitus with foot ulcer; L97.509 - Non-pressure chronic ulcer of other part of unspecified foot with unspecified severity QUALIFIERS: Diabetes mellitus type: type 2 Laterality: left Non- pressure ulcer stage: with necrosis of bone (2) 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 exposed: CODE(S): L97.522 - 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 exposed (3) 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: CODE(S): Z89.422 - Acquired absence of other left toe(s) (4) Type 2 diabetes mellitus with diabetic polyneuropathy: CODE(S): E11.42 - Type 2 diabetes mellitus with diabetic polyneuropathy (5) Diabetic ulcer of foot associated with diabetes mellitus due to underlying condition, with necrosis of bone: CODE(S): E08.621 - Diabetes mellitus due to underlying condition with foot ulcer; L97.504 - Non-pressure chronic ulcer of other part of unspecified foot with necrosis of bone PLAN: Plan Patient seen and evaluated in wound care center He is?s/p I&D gas gangrene left foot with partial fifth ray amputation and excision of chronic diabetic ulceration.? POV #26 (DOS: 03/24/2022) POD #[id number] Left lower extremity: No edema noted. Fifth digit amputation noted. Previous A1c from March and May both 10.5%.? He had seen endocrinology and has demonstrated mild reduction of his A1c down to 9.9%.? He had had previous difficulties performing HBO dives due to uncontrolled sugars. Due to his new glucose meter he will be unable to perform further HBO dives. I discussed that despite this minimal improvement in his A1c he needs to continue diet modifications for proper glycemic control to aid in his healing and overall health.?He was encouraged to continue routine follow-ups with antitank assault gunner so that he may get his blood sugars under control and achieve a lower A1c. Infection: During surgical intervention 03/24/22 the tissues demonstrated normal integrity and were not easily dissectible through fascial planes with a finger as seen with typical necrotizing fasciitis cases.?He did however have soft tissue crepitus with foul odor consistent with a gas gangrene, confirmed by radiograph on 03/24/2022.? 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 WBC 16.3 with left shift prior to surgical intervention.?WBC currently within normal limits.? He is finished IV antibiotic course and PICC line removed. Sx Cultures: Culture of wound/ulceration &?Bone culture fifth toe/fifth metatarsal demonstrates staph epi, Enterococcus faecalis, Streptococcus mitis/oralis, Turicella otitidis, Enterococcus casseliflavius, Peptostreptococcus prevotil, Prevotella bivia.? Cultures post surgical clearance demonstrate no growth. Wound: Wound underwent debridement as noted in clinical panel above today. Healthy granular tissue noted with no localized signs of infection.? No purulent drainage noted, no malodor noted.? Wound is continuing to granulate in well. He underwent debridement of the necrotic 4th metatarsal head on 05/24/22.?Radiographs were ordered of the left foot 05/31/22. Radiographs demonstrate: Amputation of the fifth metatarsal at the level of the mid diaphysis.?There is interval development of osseous destruction of the base of t he fourth proximal phalanx and distal fourth metatarsal suspicious of osteomyelitis. Further debridement was performed on 05/31/22 removing nonviable tissue/bone in the base of his proximal phalanx of the fourth digit.?Wound measures 1.5 cm x 1.4 cm x 0.1 cm.?He was approved for 2 additional epi fix grafts.? Epi fix mesh graft #11 applied to the wound bed at previous visit and was left in place today. He is not to get the dressing wet and to leave the dressings clean, dry, and intact to the left foot.? No expressible purulent drainage noted.?There is continued improvement in the appearance of his wound today with continued reduction in size. I will continue to monitor him for any progressing signs of infection.?He is aware that further surgical intervention may be required pending his progress.? Dressings: Epi fix mesh graft, Adaptic touch and anchored with Steri-Strips with dry sterile dressing.? He was instructed to keep his dressings clean, dry, and intact to the left foot.?Continue to elevate the left lower extremity at all times of rest.? He was instructed that if his dressing falls off or gets removed prior to his next visit he is to return to [facility]'s wet-to-dry dressings.? He voices understanding of that. Patient is to remain nonweightbearing to the left lower extremity with assistance of a knee scooter. He may be partial weight bearing to Left heel for bathroom privileges and transfers. Visiting nursing to assist in dressing changes to the left foot. He will return to the wound care center in 1 week for continued localized wound care and close monitoring. Note: [employer] speech recognition aerial advertiser software was used to create portions of this document. Sound-alike and misspelled words, as well as other aerial advertiser errors may be contained in the documentation
[2022-09-27 08:03] VITALS: BP 117/77; PULSE 92; RESP 16; TEMP 36.1; BMI 34.2
--- NOTE | 2022-09-27 08:24 | PN.PCM_ITS ---
History of Present Illness Date of Service: 09/27/22 Chief Complaint: Osteomyelitis of the left foot; diabetic foot ulceration History of Wound: Patient is a 51-year-old male who presents to the wound care center for evaluation for hyperbaric oxygen therapy. He has been seeing Dr. 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 His ulcer is not making the progress that it should. He has a Gustafson stage III ulcer on his left foot. He uses a knee scooter. 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 There is interval development of osseous destruction of the head and distal diaphysis of the fourth metatarsal and base of the fourth proximal phalanx. Arterial study from 01/09/22, Right RANJAN - 1.19, Left RANJAN - NC, Left digital- brachial index is 0.67. The left digital-brachial index is mildly diminished. There is evidence of arterial calcification at ankle level on the left. Arterial flow appears normal at ankle level bilaterally, and at digital level on the right. There is evidence of mild arterial occlusive disease at digital level on the left. MRI of left lower extremity from 10/07/19 showed Marrow edema consistent osteomyelitis of the distal phalanges of the fourth and fifth toes. Soft tissue swelling. He has a history of DM Type II, last HgA1c 10.5 on 05/31/22, Kidney transplant one year ago, peripheral vascular disease, atherosclerotic heart disease, AMI, neuropathy, and GERD. He has received cardiac clearance from Dr. Oneill. Chest x-ray from 05/31/22 is normal. Today he denies fever, chills, nausea, vomiting. Patient has been having issues with his left TM, he was sent to ENT and an ear tube was place in the left ear only on 07/17/22. Patient has been approved for 30 treatment of hyperbaric oxygen therapy. Progress of Wound: Today is the 24th? treatment of hyperbaric oxygen therapy.? The patient is scheduled for 30 treatments total. Unfortunately the patient had a Dexcom placed on September 06, 2022. This prohibits the patient from participating in hyperbaric oxygen therapy as it is not currently approved. 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 He is pleased with his continued healing progress. He feels his meter is helping to keep his sugars more consistent. He has been changing the outer dressings to the left foot as needed and has left his graft in place.? He denies any constitutional symptoms.?He continues to deny any pain today.?He has no further complaints today. Objective Data Objective Data Vital Signs: Vital Signs Temp Pulse Resp BP 96.9 F L 92 16 117/77 09/27/22 08:03 09/27/22 08:03 09/27/22 08:03 09/27/22 08:03 Weight: 102.058 kg Body Mass Index (BMI) 34.2 Physical Exam Narrative Patient is alert oriented to person, place and time.? Patient ambulates with assistance of a knee scooter on the left.? And diabetic shoe on the right. Vascular: There are atrophic changes of the skin such as thinning shiny taut appearance absent digital hair growth.? Pulses are grossly palpable 2 out of 4 dorsalis pedis and posterior tibial bilateral feet.? Mild +1 pitting edema to bilateral lower extremity. Neurologic: Light touch protective sensation completely absent to bilateral lower extremity. Dermatologic: Healed right hallux ulceration.?Digital wounds to left foot healed at this time.?Status post partial fifth ray amputation left foot with healthy granular wound at the distal aspect of the amputation site. No signs of infection. Musculoskeletal: No gross wound forming deformity.?Muscular strength full to bilateral lower extremity compartments.? No crepitus or pain noted to the wound or periwound areas. Const alert, oriented x3 and no apparent distress General Appearance: cooperative HEENT normocephalic Eyes General Eye: normal appearance of both eyes Neck General: normal visual inspection Lymph Lymphatic: no lymphadenopathy noted and no lymphedema noted Resp normal respiratory effort Cardio regular rate and regular rhythm Extremity normal capillary refill, no joint enlargement, no calf tenderness and no pedal edema Skin no rashes or lesions noted, skin turgor normal and no jaundice Wound Narrative: Left foot: Partial fifth ray resection noted.? Wound site measures 1.2 cm x 1.1 cm x 0.1 cm.? There is healthy appearing skin about the ulcerative rim.?There is no erythema, no expressible purulent drainage, no malodor, no other localized signs of infection.? Wound demonstrates healthy granular layer with adequate tissue bleeding. Neuro moves all extremities Debridement Note Debridement Note Wound debrided: Fifth metatarsal amputation stump Laterality: Left Wound Grade/Stage: Gustafson stage III Type of Debridement: Excisional debridement Anesthesia Used: 5% Lidocaine Gel Depth: Down to and including healthy tissue and in the subcutaneous layer Percentage of wound debrided: 100 Instrument Used: 3mm curette and #15 blade Tissue Removed: Fibrous, devitalized subcutaneous, biofilm, slough Severity: Fat Layer Exposed Amount of bleeding with debridement: Mild Bleeding Controlled with: Compression and gauze Patient tolerated procedure: Patient tolerated procedure well Post-Debridement Measurements and Additional Note: Post-Debridement Measurements/Treatment - Nurse 1 - General Ulcer Assessment Start: 09/11/22 16:14 Freq: Status: Active Protocol: HOLLY Activity Type Activity Date Activity User E-sign Co-sign Detail Recorded Client Recorded Date Recorded By Document 09/13/22 07:59 [id number] 09/13/22 08:01 Document 09/20/22 08:07 [id number] 09/20/22 08:08 Document 09/27/22 08:03 [id number] 09/27/22 08:04 09/13/22 09/20/22 09/27/22 07:59 08:07 08:03 - Today's Visit Information Type of service Follow-up Visit Follow-up Visit Follow-up Visit (Physician/VENDING MACHINE SERVICER (Physician/VENDING MACHINE SERVICER (Physician/VENDING MACHINE SERVICER ) ) ) Arrival Mode Ambulatory, Ambulatory Ambulatory, Walker Walker Patient Identification Verified (Name & Yes Yes ) Patient Requires Transmission-Based Yes No Precautions Safety Precautions NA Finger Stick Blood Sugar(mg/dl) (if 220 209 indicated): Blood Sugar Stated by Stated by Patient Patient Height and Weight Body Mass Index (BMI) 34.2 34.2 34.2 BMI Classification Obese Obese Obese Vital Signs Temperature (97.8 F-99.1 F) 97.7 F L 97.0 F L 96.9 F L Temperature Source Temporal Temporal Temporal Pulse Rate (60-100) 88 92 92 Pulse Location Monitor Monitor Monitor Respiratory Rate (12-18) 18 16 Respiratory rate source Observation Observation Blood Pressure (90/60-120/80) 133/76 H 156/72 H 117/77 Blood Pressure Mean (mm Hg) 95 100 90 Source Monitor Monitor Monitor Position Semi-Fowlers Sitting Sitting Blood Pressure Location Left Arm Right Arm Left Arm History Since Last Visit- (Skip if this is Patient's initial visit) Have you changed medications since your No No No last visit? Any new allergies or adverse reactions No No No Had a fall/change in ADL's that may No No No increase risk of falls Signs or symptoms of abuse and/or No No No neglect since last visit Have you been in the hospital since your No No No last visit? Has dressing in place as prescribed Yes Yes Yes Has compression in place as prescribed Yes N/A Yes Has offloadiing in place as prescribed Yes N/A Yes Experienced any changes in pain level or No No No management Left Footwear Surgical Shoe Regular Shoe Surgical Shoe with pressure with pressure relief insole relief insole Right Footwear Regular Shoe Regular Shoe Regular Shoe Pain Scale: 0-10 Numeric Is Patient Pain Free? Yes Yes Yes - Nurse 1 - General Ulcer Measurement Start: 09/11/22 16:14 Freq: Status: Active Protocol: Activity Type Activity Date Activity User E-sign Co-sign Detail Recorded Client Recorded Date Recorded By Document 09/13/22 07:59 [id number] 09/13/22 08:01 JF Document 09/20/22 08:07 [id number] 09/20/22 08:08 KR Document 09/27/22 08:03 [id number] 09/27/22 08:04 09/13/22 09/20/22 09/27/22 07:59 08:07 08:03 Wound Center Nurse 1 #10 LL FOOT -Combined with other wound No No -Current Size (cm) - Length 1.3 0.1 1.3 -Current Size (cm) - Width 1.1 0.1 0.9 -Current Size (cm) - Depth 0.1 0.1 0.2 -Total Square Cm 1.43 0.01 1.17 -Photo Taken Yes Yes -Epithelialization Small 1-33% Medium 34-66% -Tunneling No No -Undermining/Tunneling No No -Circular Undermining No No -Exudate Amt Medium Small -Exudate Type Serosanguineous Serosanguineous -Wound Margin Flat & Intact Flat & Intact -Granulation Amt Large (67-100%) Medium (34-66%) -Granulation Quality Red Red -Slough/Fibrin Yes Yes -Necrosis Amt Small (1-33%) Small (1-33%) -Necrotic Tissue Type Adherent Slough Adherent Slough -Structure Exposed N/A N/A -Texture ([place]-wound Skin Appearance) Assessed Assessed -Moisture ([place]-wound Skin Appearance) Assessed, Assessed,Dry/ Maceration Scaly -Color ([place]-wound Skin Appearance) Assessed Assessed -Temperature ([place]-wound Skin No Abnormality No Abnormality Appearance) (Pt Warm) (Pt Warm) -Tenderness on Palpation ([place]-wound No No Skin Appearance) -Ulcer Cleansing Wound Cleanser Soap and Water -Foul Odor after Cleansing No -Anesthetic Used 5% Lidocaine 5% Lidocaine Gel Gel Lower Limb Edema Present Yes NA Left Calf (cm) 39.5 Left Ankle (cm) 24.5 WC - Nurse 2 - General Ulcer CM Notes Start: 09/11/22 16:14 Freq: Status: Active Protocol: Activity Type Activity Date Activity User E-sign Co-sign Detail Recorded Client Recorded Date Recorded By Document 09/13/22 09:09 PL [id number] 09/13/22 09:11 PL Document 09/20/22 12:00 PL [id number] 09/20/22 12:00 PL 09/13/22 09/20/22 09:09 12:00 Wound Center Nurse 2 #10 LL FOOT -Time 08:34 -Correct Patient Yes -Correct Side, Site, Position Yes -Correct Procedure Yes -Procedure Performed Yes No -Type of Procedure Debridement -Clinical Debridement Subcutaneous -Tissue Removed Subcutaneous -Post Debridement (cm) - Length 1.5 1.5 -Post Debridement (cm) - Width 1.4 0.8 -Post Debridement (cm) - Depth 0.1 0.1 -Total Square (Post) (cm) 2.10 1.20 -Area of Debridement (cm) - Length 1.5 -Area of Debridement (cm) - Width 1.4 -Total Square (Area) (cm) 2.10 -Tunneling No -Undermining/Tunneling No -Circular Undermining No -Wound/Ulcer Outcome Not Healed Not Healed -Ulcer Cleansing Rinsed/ Irrigated with Saline -Foul Odor after Cleansing No -Bioengineered Tissue Yes -Type of Bioengineered Tissue Epifix 18mm Disc -Expiration Date 05/10/27 -Product Lot Number [id number] -Percent Used 100 -Bleeding Controlled with Pressure -Treatment Response Procedure Tolerated Well -Debridement - Subq, 1st 20sq cm No -Apply Skin Sub - 1st 25 sq cm - Feet 1 -Epifix 18mm Disc 3 Pain Scale: 0-10 Numeric Is Patient Pain Free? Yes Yes - Nurse 3 - General Ulcer D/C NN Start: 09/11/22 16:14 Freq: Status: Active Protocol: Activity Type Activity Date Activity User E-sign Co-sign Detail Recorded Client Recorded Date Recorded By Document 09/13/22 08:51 AK [id number] 09/13/22 08:51 AK Document 09/20/22 09:32 KR [id number] 09/20/22 09:32 KR 09/13/22 09/20/22 08:51 09:32 Wound Care Nurse 3 #10 LL FOOT -Ulcer Cleansing Rinsed/ Irrigated with Saline -Foul Odor after Cleansing No -Negative Pressure Wound Therapy N/A -Other Dressing abd pad -Primary Dressing Covered/Secured with Dry Gauze & Dry Gauze & Roll Gauze, Roll Gauze Secured with Tape -Other Covering arielle Pain Scale: 0-10 Numeric Is Patient Pain Free? Yes Yes - Visit Discharge Discharge Condition Stable Stable Ambulatory Status Ambulatory Steady Transportation Private Auto Private Auto Medication Reconcilliation completed & Yes provided to patient/care provider Clinical Summary of Care Provided Yes Assessment/Plan Assessment/Plan (1) Diabetic foot ulcer: CODE(S): E11.621 - Type 2 diabetes mellitus with foot ulcer; L97.509 - Non-pressure chronic ulcer of other part of unspecified foot with unspecified severity QUALIFIERS: Diabetes mellitus type: type 2 Laterality: left Non- pressure ulcer stage: with necrosis of bone (2) 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 exp osed: CODE(S): L97.522 - 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 exposed (3) 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: CODE(S): Z89.422 - Acquired absence of other left toe(s) (4) Type 2 diabetes mellitus with diabetic polyneuropathy: CODE(S): E11.42 - Type 2 diabetes mellitus with diabetic polyneuropathy (5) Diabetic ulcer of foot associated with diabetes mellitus due to underlying condition, with necrosis of bone: CODE(S): E08.621 - Diabetes mellitus due to underlying condition with foot ulcer; L97.504 - Non-pressure chronic ulcer of other part of unspecified foot with necrosis of bone PLAN: Plan Patient seen and evaluated in wound care center He is?s/p I&D gas gangrene left foot with partial fifth ray amputation and excision of chronic diabetic ulceration.?(DOS: 03/24/2022) POD #188 Left lower extremity: No edema noted. Fifth digit amputation noted. Previous A1c from March and May both 10.5%.? He had seen endocrinology and has demonstrated mild reduction of his A1c down to 9.9%.? He had had previous difficulties performing HBO dives due to uncontrolled sugars. Due to his new glucose meter he will be unable to perform further HBO dives. I discussed that despite this minimal improvement in his A1c he needs to continue diet modifications for proper glycemic control to aid in his healing and overall health.?He was encouraged to continue routine follow-ups with drug abuse technician so that he may get his blood sugars under control and achieve a lower A1c. Infection: During surgical intervention 03/24/22 the tissues demonstrated normal integrity and were not easily dissectible through fascial planes with a finger as seen with typical necrotizing fasciitis cases.?He did however have soft tissue crepitus with foul odor consistent with a gas gangrene, confirmed by radiograph on 03/24/2022.? 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 WBC 16.3 with left shift prior to surgical intervention.?WBC currently within normal limits.? He is finished IV antibiotic course and PICC line removed. Sx Cultures: Culture of wound/ulceration &?Bone culture fifth toe/fifth metatarsal demonstrates staph epi, Enterococcus faecalis, Streptococcus mitis/oralis, Turicella otitidis, Enterococcus casseliflavius, Peptostreptococcus prevotil, Prevotella bivia.? Cultures post surgical clearance demonstrate no growth. Wound: Wound underwent debridement as noted in clinical panel above today. Healthy granular tissue noted with no localized signs of infection.? No purulent drainage noted, no malodor noted.? Wound is continuing to granulate in well. He underwent debridement of the necrotic 4th metatarsal head on 05/24/22.?Radiographs were ordered of the left foot 05/31/22. Radiographs demonstrate: Amputation of the fifth metatarsal at the level of the mid diaphysis.?There is interval development of osseous destruction of the base of the fourth proximal phalanx and distal fourth metatarsal suspicious of osteomyelitis. Further debridement was performed on 05/31/22 removing nonviable tissue/bone in the base of his proximal phalanx of the fourth digit.?Wound measures 1.2 cm x 1.1 cm x 0.1 cm.?He was approved for 2 additional epi fix grafts.? Epi fix mesh graft #12 applied to the wound bed at previous visit and was left in place today. He is not to get the dressing wet and to leave the dressings clean, dry, and intact to the left foot.? No expressible purulent drainage noted.?There is continued improvement in the appearance of his wound today with continued reduction in size. I will continue to monitor him for any progressing signs of infection.?He is aware that further surgical intervention may be required pending his progress.? Currently prognosis is good with continued reduction in wound size Dressings: Epi fix mesh graft, Adaptic touch and anchored with Steri-Strips with dry sterile dressing.? He was instructed to keep his dressings clean, dry, and intact to the left foot.?Continue to elevate the left lower extremity at all times of rest.? He was instructed that if his dressing falls off or gets removed prior to his next visit he is [facility].? He voices understanding of that. Patient is to remain nonweightbearing to the left lower extremity with assistance of a knee scooter. He may be partial weight bearing to Left heel for bathroom privileges and transfers. Visiting nursing to assist in dressing changes to the left foot. He will return to the wound care center in 2 weeks for continued localized wound care and close monitoring. Note: plista speech recognition counter sales person software was used to create portions of this document. Sound-alike and misspelled words, as well as other counter sales person errors may be contained in the documentation
== END 2022-10-09 23:59 | disposition home or self-care (01) ==
LOC: WC 08:15
PROVIDERS: PCP Internal Medicine; Referring Provider Podiatrist; Visit Provider Student in an Organized Health Care Education/Training Program
DX: E11.621 Type 2 diabetes mellitus with foot ulcer (principal); Z89.422 Acquired absence of other left toe(s); L97.522 Non-pressure chronic ulcer of other part of left foot with fat layer exposed; M86.8X7 Other osteomyelitis, ankle and foot; E11.42 Type 2 diabetes mellitus with diabetic polyneuropathy; Z79.4 Long term (current) use of insulin; I25.10 Atherosclerotic heart disease of native coronary artery without angina pectoris; Z86.16 Personal history of COVID-19; Z94.0 Kidney transplant status; K21.9 Gastro-esophageal reflux disease without esophagitis; E78.5 Hyperlipidemia, unspecified; Z79.82 Long term (current) use of aspirin
CPT/HCPCS: 15275; 82962; 99211; 99213; Q4186; G0463

== ENCOUNTER 2022-11-01 08:00 | Outpatient (RCR) | payer MEDICARE, MEDICAID, SELFPAY ==
[2022-10-10 00:28] VITALS: BP 117/77; PULSE 92; RESP 16; TEMP 36.1; BMI 34.2
[2022-10-11 08:08] VITALS: BP 165/84; PULSE 91; TEMP 36.4; BMI 34.2
--- NOTE | 2022-10-11 08:14 | PN.PCM_ITS ---
History of Present Illness Date of Service: 10/11/22 Chief Complaint: Osteomyelitis of the left foot; diabetic foot ulceration History of Wound: Patient is a 51-year-old male who presents to the wound care center for evaluation for hyperbaric oxygen therapy. He has been seeing Dr. 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 His ulcer is not making the progress that it should. He has a Gustafson stage III ulcer on his left foot. He uses a knee scooter. 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 There is interval development of osseous destruction of the head and distal diaphysis of the fourth metatarsal and base of the fourth proximal phalanx. Arterial study from 01/09/22, Right RANJAN - 1.19, Left RANJAN - NC, Left digital- brachial index is 0.67. The left digital-brachial index is mildly diminished. There is evidence of arterial calcification at ankle level on the left. Arterial flow appears normal at ankle level bilaterally, and at digital level on the right. There is evidence of mild arterial occlusive disease at digital level on the left. MRI of left lower extremity from 10/07/19 showed Marrow edema consistent osteomyelitis of the distal phalanges of the fourth and fifth toes. Soft tissue swelling. He has a history of DM Type II, last HgA1c 10.5 on 05/31/22, Kidney transplant one year ago, peripheral vascular disease, atherosclerotic heart disease, AMI, neuropathy, and GERD. He has received cardiac clearance from Dr. Oneill. Chest x-ray from 05/31/22 is normal. Today he denies fever, chills, nausea, vomiting. Patient has been having issues with his left TM, he was sent to ENT and an ear tube was place in the left ear only on 07/17/22. Patient has been approved for 30 treatment of hyperbaric oxygen therapy. 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 Reports blood sugar more stable with new meter. He has been changing the outer dressings to the left foot as needed and has left his graft in place.? He denies any constitutional symptoms.?He continues to deny any pain today.?He has no further complaints today. Objective Data Objective Data Vital Signs: Vital Signs Temp Pulse Resp BP 97.6 F L 91 16 165/84 H 10/11/22 08:08 10/11/22 08:08 10/10/22 00:28 10/11/22 08:08 Weight: 102.058 kg Body Mass Index (BMI) 34.2 Physical Exam Narrative Physical Exam Narrative Patient is alert oriented to person, place and time.? Patient ambulates with assistance of a knee scooter on the left.? And diabetic shoe on the right. Vascular: There are atrophic changes of the skin such as thinning shiny taut appearance absent digital hair growth.? Pulses are grossly palpable 2 out of 4 dorsalis pedis and posterior tibial bilateral feet.? Mild +1 pitting edema to bilateral lower extremity. Neurologic: Light touch protective sensation completely absent to bilateral lower extremity. Dermatologic: Healed right hallux ulceration.?Digital wounds to left foot healed at this time.?Status post partial fifth ray amputation left foot with healthy granular wound at the distal aspect of the amputation site. No signs of infection. Musculoskeletal: No gross wound forming deformity.?Muscular strength full to bilateral lower extremity compartments.? No crepitus or pain noted to the wound or periwound areas. Semi-ridgid hammer toe deformity of the 3rd digit with hyperkeratoic lesion at distal tuft secondary to pressure. Const alert, oriented x3 and no apparent distress General Appearance: cooperative HEENT normocephalic Eyes General Eye: normal appearance of both eyes Neck General: normal visual inspection Lymph Lymphatic: no lymphadenopathy noted and no lymphedema noted Resp normal respiratory effort Cardio regular rate and regular rhythm Extremity normal capillary refill, no joint enlargement, no calf tenderness and no pedal edema Skin no rashes or lesions noted, skin turgor normal and no jaundice Wound Narrative: Left foot: Partial fifth ray resection noted.? Wound site measures 0.7 cm x 0.6 cm x 0.1 cm.? There is healthy appearing skin about the ulcerative rim.?There is no erythema, no expressible purulent drainage, no malodor, no other localized signs of infection.? Wound demonstrates healthy granular layer with adequate tissue bleeding. Neuro moves all extremities Debridement Note Debridement Note Wound debrided: Fifth metatarsal amputation stump Laterality: Left Wound Grade/Stage: Gustafson stage III Type of Debridement: Excisional debridement Anesthesia Used: 5% Lidocaine Gel Depth: Down to and including healthy tissue and in the subcutaneous layer Percentage of wound debrided: 100 Instrument Used: 3mm curette Tissue Removed: Fibrous, devitalized subcutaneous, biofilm, slough Severity: Fat Layer Exposed Amount of bleeding with debridement: Mild Bleeding Controlled with: Compression and gauze Patient tolerated procedure: Patient tolerated procedure well Post-Debridement Measurements and Additional Note: Post-Debridement Measurements/Treatment WC - Nurse 1 - General Ulcer Assessment Start: 10/11/22 08:08 Freq: Status: Active Protocol: HOLLY Activity Type Activity Date Activity User E-sign Co-sign Detail Recorded Client Recorded Date Recorded By Document 10/11/22 08:08 KELLIE [id number] 10/11/22 08:11 KELLIE 10/11/22 08:08 WC - Today's Visit Information Type of service Follow-up Visit (Physician/EDUCATIONAL ADVISER ) Arrival Mode Ambulatory, Walker Patient Identification Verified (Name & Yes ) Patient Requires Transmission-Based No Precautions Safety Precautions NA Height and Weight Body Mass Index (BMI) 34.2 BMI Classification Obese Vital Signs Temperature (97.8 F-99.1 F) 97.6 F L Temperature Source Temporal Pulse Rate (60-100) 91 Pulse Location Monitor Blood Pressure (90/60-120/80) 165/84 H Blood Pressure Mean (mm Hg) 111 History Since Last Visit- (Skip if this is Patient's initial visit) Have you changed medications since your No last visit? Any new allergies or adverse reactions No Had a fall/change in ADL's that may No increase risk of falls Signs or symptoms of abuse and/or No neglect since last visit Have you been in the hospital since your No last visit? Has dressing in place as prescribed Yes Has compression in place as prescribed N/A Has offloadiing in place as prescribed N/A Experienced any changes in pain level or No management Left Footwear Regular Shoe Right Footwear Surgical Shoe with pressure relief insole Pain Scale: 0-10 Numeric Is Patient Pain Free? Yes - Nurse 1 - General Ulcer Measurement Start: 10/11/22 08:08 Freq: Status: Active Protocol: Activity Type Activity Date Activity User E-sign Co-sign Detail Recorded Client Recorded Date Recorded By Document 10/11/22 08:08 KELLIE [id number] 10/11/22 08:11 KELLIE 10/11/22 08:08 Wound Center Nurse 1 #10 LL FOOT -Combined with other wound No -Current Size (cm) - Length 1 -Current Size (cm) - Width 0.6 -Current Size (cm) - Depth 0.1 -Total Square Cm 0.6 -Date of Last Picture (Recall this 10/11/22 field) -Photo Taken Yes -Tunneling No -Undermining/Tunneling No -Circular Undermining No -Change in Wound Grade/Stage No -Exudate Type Serosanguineous -Wound Margin Distinct, Outline Attached -Granulation Amt Medium (34-66%) -Granulation Quality [place] -Necrosis Amt Medium (34-66%) -Necrotic Tissue Type Adherent Slough -Structure Exposed N/A -Texture ([place]-wound Skin Appearance) Assessed,Callus -Moisture ([place]-wound Skin Appearance) No Abnormality, Assessed -Color ([place]-wound Skin Appearance) No Abnormality, Assessed -Temperature ([place]-wound Skin No Abnormality Appearance) (Pt Warm) -Tenderness on Palpation ([place]-wound No Skin Appearance) -Ulcer Cleansing Rinsed/ Irrigated with Saline -Foul Odor after Cleansing No -Anesthetic Used 5% Lidocaine Gel Left Calf (cm) 40 Left Ankle (cm) 24.8 Assessment/Plan Assessment/Plan (1) 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 exposed: CODE(S): L97.522 - 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 exposed (2) Diabetic foot ulcer: CODE(S): E11.621 - Type 2 diabetes mellitus with foot ulcer; L97.509 - Non-pressure chronic ulcer of other part of unspecified foot with unspecified severity QUALIFIERS: Diabetes mellitus type: type 2 Laterality: left Non- pressure ulcer stage: with necrosis of bone (3) 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: CODE(S): Z89.422 - Acquired absence of other left toe(s) (4) Type 2 diabetes mellitus with diabetic polyneuropathy: CODE(S): E11.42 - Type 2 diabetes mellitus with diabetic polyneuropathy PLAN: Plan Patient seen and evaluated in wound care center He is?s/p I&D gas gangrene left foot with partial fifth ray amputation and excision of chronic diabetic ulceration.?(DOS: 03/24/2022) POD #202 Left lower extremity: No edema noted. Fifth digit amputation noted. Previous A1c from March and May both 10.5%.? He had seen endocrinology and has demonstrated mild reduction of his A1c down to 9.9%.? He had had previous difficulties performing HBO dives due to uncontrolled sugars.? Due to his new glucose meter he will be unable to perform further HBO dives.? I discussed that despite this minimal improvement in his A1c he needs to continue diet modifications for proper glycemic control to aid in his healing and overall health.?He was encouraged to continue routine follow-ups with wire photo operator so that he may get his blood sugars under control and achieve a lower A1c. Infection: During surgical intervention 03/24/22 the tissues demonstrated normal integrity and were not easily dissectible through fascial planes with a finger as seen with typical necrotizing fasciitis cases.?He did however have soft tissue crepitus with foul odor consistent with a gas gangrene, confirmed by radiograph on 03/24/2022.? 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 WBC 16.3 with left shift prior to surgical intervention.?WBC currently within normal limits.? He is finished IV antibiotic course and PICC line removed. Sx Cultures: Culture of wound/ulceration &?Bone culture fifth toe/fifth metatarsal demonstrates staph epi, Enterococcus faecalis, Streptococcus mitis/oralis, Turicella otitidis, Enterococcus casseliflavius, Peptostreptococcus prevotil, Prevotella bivia.? Cultures post surgical clearance demonstrate no growth. Wound: Wound underwent debridement as noted in clinical panel above today. Healthy granular tissue noted with no localized signs of infection.? No purulent drainage noted, no malodor noted.? Wound is continuing to granulate in well. He underwent debridement of the necrotic 4th metatarsal head on 05/24/22.?Radiographs were ordered of the left foot 05/31/22. Radiographs d emonstrate: Amputation of the fifth metatarsal at the level of the mid diaphysis.?There is interval development of osseous destruction of the base of the fourth proximal phalanx and distal fourth metatarsal suspicious of osteomyelitis.?Further debridement was performed on 05/31/22 removing nonviable tissue/bone in the base of his proximal phalanx of the fourth digit. Wound was debrided as noted in clinical panel above.?Wound measures 0.7 cm x 0.6 cm x 0.1 cm.?He has finished his Epi fix mesh graft. Rosario applied to ulcerative base today. No expressible purulent drainage noted.?There is continued improvement in the appearance of his wound today with continued reduction in size. I will continue to monitor him for any progressing signs of infection.?He is aware that further surgical intervention may be required pending his progress.? Currently prognosis is good with continued reduction in wound size Dressings: Rosario and DSD. Continue to elevate the left lower extremity at all times of rest. Patient is to remain nonweightbearing to the left lower extremity with assistance of a knee scooter. He may be partial weight bearing to Left heel for bathroom privileges and transfers. Visiting nursing to assist in dressing changes to the left foot. He will return to the wound care center in 1 week for continued localized wound care and close monitoring. Note: [employer] speech recognition director of market analysis software was used to create portions of this document. Sound-alike and misspelled words, as well as other director of market analysis errors may be contained in the documentation
[2022-10-18 07:59] VITALS: BP 129/68; PULSE 93; RESP 16; TEMP 36.5; BMI 34.2
--- NOTE | 2022-10-18 08:37 | PCM.WC.PN ---
History of Present Illness Date of Service: 10/18/22 Chief Complaint: Osteomyelitis of the left foot; diabetic foot ulceration History of Wound: Patient is a 51-year-old male who presents to the wound care center for evaluation for hyperbaric oxygen therapy. He has been seeing Dr. 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 His ulcer is not making the progress that it should. He has a Gustafson stage III ulcer on his left foot. He uses a knee scooter. 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 There is interval development of osseous destruction of the head and distal diaphysis of the fourth metatarsal and base of the fourth proximal phalanx. Arterial study from 01/09/22, Right RANJAN - 1.19, Left RANJAN - NC, Left digital-brachial index is 0.67. The left digital-brachial index is mildly diminished. There is evidence of arterial calcification at ankle level on the left. Arterial flow appears normal at ankle level bilaterally, and at digital level on the right. There is evidence of mild arterial occlusive disease at digital level on the left. MRI of left lower extremity from 10/07/19 showed Marrow edema consistent osteomyelitis of the distal phalanges of the fourth and fifth toes. Soft tissue swelling. He has a history of DM Type II, last HgA1c 10.5 on 05/31/22, Kidney transplant one year ago, peripheral vascular disease, atherosclerotic heart disease, AMI, neuropathy, and GERD. He has received cardiac clearance from Dr. Oneill. Chest x-ray from 05/31/22 is normal. Today he denies fever, chills, nausea, vomiting. Patient has been having issues with his left TM, he was sent to ENT and an ear tube was place in the left ear only on 07/17/22. Patient has been approved for 30 treatment of hyperbaric oxygen therapy. 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 Reports blood sugar more stable with new meter and he has been achieving consistent numbers. He has been changing the outer dressings to the left foot daily. He denies any constitutional symptoms.?He continues to deny any pain today.?He has no further complaints today. Objective Data Objective Data Vital Signs: Vital Signs Temp Pulse Resp BP 97.7 F L 93 16 129/68 H 10/18/22 07:59 10/18/22 07:59 10/18/22 07:59 10/18/22 07:59 Weight: 102.058 kg Body Mass Index (BMI) 34.2 Physical Exam Narrative Physical Exam Narrative Patient is alert oriented to person, place and time.? Patient ambulates with assistance of a knee scooter on the left.? And diabetic shoe on the right. Vascular: There are atrophic changes of the skin such as thinning shiny taut appearance absent digital hair growth.? Pulses are grossly palpable 2 out of 4 dorsalis pedis and posterior tibial bilateral feet.? Mild +1 pitting edema to bilateral lower extremity. Neurologic: Light touch protective sensation completely absent to bilateral lower extremity. Dermatologic: Healed right hallux ulceration.?Digital wounds to left foot healed at this time.?Status post partial fifth ray amputation left foot with healthy granular wound at the distal aspect of the amputation site. No signs of infection. Musculoskeletal: No gross wound forming deformity.?Muscular strength full to bilateral lower extremity compartments.? No crepitus or pain noted to the wound or periwound areas. Semi-ridgid hammer toe deformity of the 3rd digit with hyperkeratoic lesion at distal tuft secondary to pressure. Const alert, oriented x3 and no apparent distress General Appearance: cooperative HEENT normocephalic Eyes General Eye: normal appearance of both eyes Neck General: normal visual inspection Lymph Lymphatic: no lymphadenopathy noted and no lymphedema noted Resp normal respiratory effort Cardio regular rate and regular rhythm Extremity normal capillary refill, no joint enlargement, no calf tenderness and no pedal edema Skin no rashes or lesions noted, skin turgor normal and no jaundice Wound Narrative: Left foot: Partial fifth ray resection noted.? Wound site measures 0.7 cm x 0.5 cm x 0.1 cm.? There is healthy appearing skin about the ulcerative rim.?There is no erythema, no expressible purulent drainage, no malodor, no other localized signs of infection.? Wound demonstrates healthy granular layer with adequate tissue bleeding. Neuro moves all extremities Debridement Note Debridement Note Wound debrided: Left 5th metatarsal amputation stump Laterality: Left Wound Grade/Stage: Gustafson stage III Type of Debridement: Excisional debridement Anesthesia Used: 5% Lidocaine Gel Depth: Down to and including healthy tissue and in the subcutaneous layer Percentage of wound debrided: 100 Instrument Used: 3mm curette Tissue Removed: Fibrous, devitalized subcutaneous, biofilm, slough Severity: Fat Layer Exposed Amount of bleeding with debridement: Mild Bleeding Controlled with: Compression and gauze Patient tolerated procedure: Patient tolerated procedure well Post-Debridement Measurements and Additional Note: Post-Debridement Measurements/Treatment - Nurse 1 - General Ulcer Assessment Start: 10/11/22 08:08 Freq: Status: Active Protocol: OSWALDBrevadoAlexandria Activity Type Activity Date Activity User E-sign Co-sign Detail Recorded Client Recorded Date Recorded By Document 10/11/22 08:08 KELLIE [id number] 10/11/22 08:11 WV Document 10/18/22 07:59 WV [id number] 10/18/22 08:00 WV 10/11/22 10/18/22 08:08 07:59 - Today's Visit Information Type of service Follow-up Visit Follow-up Visit (Physician/DRYWALL METAL STUD WORKER (Physician/DRYWALL METAL STUD WORKER ) ) Arrival Mode Ambulatory, Ambulatory Walker Patient Identification Verified (Name & Yes Yes ) Patient Requires Transmission-Based No No Precautions Safety Precautions NA Finger Stick Blood Sugar(mg/dl) (if 149 indicated): Blood Sugar Stated by Patient Height and Weight Body Mass Index (BMI) 34.2 34.2 BMI Classification Obese Obese Vital Signs Temperature (97.8 F-99.1 F) 97.6 F L 97.7 F L Temperature Source Temporal Temporal Pulse Rate (60-100) 91 93 Pulse Location Monitor Monitor Respiratory Rate (12-18) 16 Respiratory rate source Observation Blood Pressure (90/60-120/80) 165/84 H 129/68 H Blood Pressure Mean (mm Hg) 111 88 Source Monitor Position Semi-Fowlers Blood Pressure Location Left Arm History Since Last Visit- (Skip if this is Patient's initial visit) Have you changed medications since your No No last visit? Any new allergies or adverse reactions No No Had a fall/change in ADL's that may No No increase risk of falls Signs or symptoms of abuse and/or No No neglect since last visit Have you been in the hospital since your No No last visit? Has dressing in place as prescribed Yes Yes Has compression in place as prescribed N/A Yes Has offloadiing in place as prescribed N/A Yes Experienced any changes in pain level or No No management Left Footwear Regular Shoe Surgical Shoe with pressure relief insole Right Footwear Surgical Shoe Regular Shoe with pressure relief insole Pain Scale: 0-10 Numeric Is Patient Pain Free? Yes Yes WC - Nurse 1 - General Ulcer Measurement Start: 10/11/22 08:08 Freq: Status: Active Protocol: Activity Type Activity Date Activity User E-sign Co-sign Detail Recorded Client Recorded Date Recorded By Document 10/11/22 08:08 WV [id number] 10/11/22 08:11 AK Document 10/18/22 07:59 W[place] [id number] 10/18/22 08:00 AK 10/11/22 10/18/22 08:08 07:59 Wound Center Nurse 1 #10 LL FOOT -Combined with other wound No No -Current Size (cm) - Length 1 0.1 -Current Size (cm) - Width 0.6 0.1 -Current Size (cm) - Depth 0.1 0.1 -Total Square Cm 0.6 0.01 -Date of Last Picture (Recall this 10/11/22 field) -Photo Taken Yes Yes -Epithelialization None Present -Tunneling No No -Undermining/Tunneling No No -Circular Undermining No No -Change in Wound Grade/Stage No -Exudate Amt None Present -Exudate Type Serosanguineous -Wound Margin Distinct, Outline Attached -Granulation Amt Medium (34-66%) None Present (0 %) -Granulation Quality [place] -Slough/Fibrin Yes -Necrosis Amt Medium (34-66%) -Necrotic Tissue Type Adherent Slough Adherent Slough -Structure Exposed N/A N/A -Texture ([place]-wound Skin Appearance) Assessed,Callus Assessed -Moisture ([place]-wound Skin Appearance) No Abnormality, Assessed,Dry/ Assessed Scaly -Color ([place]-wound Skin Appearance) No Abnormality, Assessed Assessed -Temperature ([place]-wound Skin No Abnormality No Abnormality Appearance) (Pt Warm) (Pt Warm) -Tenderness on Palpation ([place]-wound No Skin Appearance) -Ulcer Cleansing Rinsed/ Wound Cleanser Irrigated with Saline -Foul Odor after Cleansing No No -Anesthetic Used 5% Lidocaine 5% Lidocaine Gel Gel Lower Limb Edema Present NA Left Calf (cm) 40 Left Ankle (cm) 24.8 WC - Nurse 2 - General Ulcer CM Notes Start: 10/11/22 08:08 Freq: Status: Active Protocol: Activity Type Activity Date Activity User E-sign Co-sign Detail Recorded Client Recorded Date Recorded By Document 10/11/22 11:41 PL [id number] 10/11/22 11:42 PL 10/11/22 11:41 Wound Center Nurse 2 #10 LL FOOT -Time 08:22 -Correct Patient Yes -Correct Side, Site, Position Yes -Correct Procedure Yes -Procedure Performed Yes -Type of Procedure Debridement -Clinical Debridement Subcutaneous -Tissue Removed Subcutaneous -Post Debridement (cm) - Length 0.7 -Post Debridement (cm) - Width 0.6 -Post Debridement (cm) - Depth 0.1 -Total Square (Post) (cm) 0.42 -Area of Debridement (cm) - Length 0.7 -Area of Debridement (cm) - Width 0.6 -Total Square (Area) (cm) 0.42 -Tunneling No -Undermining/Tunneling No -Circular Undermining No -Wound/Ulcer Outcome Not Healed -Ulcer Cleansing Rinsed/ Irrigated with Saline -Foul Odor after Cleansing No -Bioengineered Tissue No -Bleeding Controlled with Pressure -Treatment Response Procedure Tolerated Well -Debridement - Subq, 1st 20sq cm Yes Pain Scale: 0-10 Numeric Is Patient Pain Free? Yes - Nurse 3 - General Ulcer D/C NN Start: 10/11/22 08:08 Freq: Status: Active Protocol: Activity Type Activity Date Activity User E-sign Co-sign Detail Recorded Client Recorded Date Recorded By Document 10/11/22 08:36 AK [id number] 10/11/22 08:37 AK 10/11/22 08:36 Wound Care Center Nurse 3 #10 LL FOOT -Ulcer Cleansing Rinsed/ Irrigated with Saline -Foul Odor after Cleansing No -Negative Pressure Wound Therapy N/A -Primary Dressing Applied Promogran Rosario Matter -Other Dressing ABD -Primary Dressing Covered/Secured with Dry Gauze & Roll Gauze, Secured with Tape -Promogran Rosario Matter 1 Pain Scale: 0-10 Numeric Is Patient Pain Free? Yes WC - Visit Discharge Discharge Condition Stable Ambulatory Status Ambulatory, Walker Transportation Private Auto Medication Reconcilliation completed & Yes provided to patient/care provider Clinical Summary of Care Provided Yes Assessment/Plan Assessment/Plan (1) 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 exposed: CODE(S): L97.522 - 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 exposed (2) Diabetic foot ulcer: CODE(S): E11.621 - Type 2 diabetes mellitus with foot ulcer; L97.509 - Non-pressure chronic ulcer of other part of unspecified foot with unspecified severity QUALIFIERS: Diabetes mellitus type: type 2 Laterality: left Non-pressure ulcer stage: with necrosis of bone (3) 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: CODE(S): Z89.422 - Acquired absence of other left toe(s) (4) Type 2 diabetes mellitus with diabetic polyneuropathy: CODE(S): E11.42 - Type 2 diabetes mellitus with diabetic polyneuropathy PLAN: Plan Patient seen and evaluated in wound care center He is?s/p I&D gas gangrene left foot with partial fifth ray amputation and excision of chronic diabetic ulceration.?(DOS: 03/24/2022) POD #209 Left lower extremity: No edema noted. Fifth digit amputation noted. Previous A1c from March and May both 10.5%.? He had seen endocrinology and has demonstrated mild reduction of his A1c down to 9.9%.? He had had previous difficulties performing HBO dives due to uncontrolled sugars.? Due to his new glucose meter he will be unable to perform further HBO dives.? I discussed that despite this minimal improvement in his A1c he needs to continue diet modifications for proper glycemic control to aid in his healing and overall health.?He was encouraged to continue routine follow-ups with electoral officer so that he may get his blood sugars under control and achieve a lower A1c. Infection: During surgical intervention 03/24/22 the tissues demonstrated normal integrity and were not easily dissectible through fascial planes with a finger as seen with typical necrotizing fasciitis cases.?He did however have soft tissue crepitus with foul odor consistent with a gas gangrene, confirmed by radiograph on 03/24/2022.? 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 WBC 16.3 with left shift prior to surgical intervention.?WBC currently within normal limits.? He is finished IV antibiotic course and PICC line removed. Sx Cultures: Culture of wound/ulceration &?Bone culture fifth toe/fifth metatarsal demonstrates staph epi, Enterococcus faecalis, Streptococcus mitis/oralis, Turicella otitidis, Enterococcus casseliflavius, Peptostreptococcus prevotil, Prevotella bivia.? Cultures post surgical clearance demonstrate no growth. Wound: Wound underwent debridement as noted in clinical panel above today. Healthy granular tissue noted with no localized signs of infection.? No purulent drainage noted, no malodor noted.? Wound is continuing to granulate in well. He underwent debridement of the necrotic 4th metatarsal head on 05/24/22.?Radiographs were ordered of the left foot 05/31/22. Radiographs demonstrate: Amputation of the fifth metatarsal at the level of the mid diaphysis.?There is interval development of osseous destruction of the base of the fourth proximal phalanx and distal fourth metatarsal suspicious of osteomyelitis.?Further debridement was performed on 05/31/22 removing nonviable tissue/bone in the base of his proximal phalanx of the fourth digit. Wound was debrided as noted in clinical panel above.?Wound measures 0.7 cm x 0.5 cm x 0.1 cm.?He has finished his Epi fix mesh graft. Rosario applied to ulcerative base today. No expressible purulent drainage noted. No signs of infection.?There is continued improvement in the appearance of his wound today with continued reduction in size. I will continue to monitor him for any progressing signs of infection.?He is aware that further surgical intervention may be required pending his progress.? Currently prognosis is good with continued reduction in wound size Dressings: Rosario and DSD. Continue to elevate the left lower extremity at all times of rest. Patient is to remain nonweightbearing to the left lower extremity with assistance of a knee scooter. He may be partial weight bearing to Left heel for bathroom privileges and transfers. Visiting nursing to assist in dressing changes to the left foot. He will return to the wound care center in 1 week for continued localized wound care and close monitoring. Note: MD [employer] speech recognition music promoter software was used to create portions of this document. Sound-alike and misspelled words, as well as other music promoter errors may be contained in the documentation
[2022-10-25 07:50] VITALS: BP 148/85; PULSE 91; TEMP 36.4; BMI 34.2
--- NOTE | 2022-10-25 08:26 | PN.PCM_ITS ---
History of Present Illness Date of Service: 10/25/22 Chief Complaint: Osteomyelitis of the left foot; diabetic foot ulceration History of Wound: Patient is a 51-year-old male who presents to the wound care center for evaluation for hyperbaric oxygen therapy. He has been seeing Dr. 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 His ulcer is not making the progress that it should. He has a Gustafson stage III ulcer on his left foot. He uses a knee scooter. 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 There is interval development of osseous destruction of the head and distal diaphysis of the fourth metatarsal and base of the fourth proximal phalanx. Arterial study from 01/09/22, Right RANJAN - 1.19, Left RANJAN - NC, Left digital- brachial index is 0.67. The left digital-brachial index is mildly diminished. There is evidence of arterial calcification at ankle level on the left. Arterial flow appears normal at ankle level bilaterally, and at digital level on the right. There is evidence of mild arterial occlusive disease at digital level on the left. MRI of left lower extremity from 10/07/19 showed Marrow edema consistent osteomyelitis of the distal phalanges of the fourth and fifth toes. Soft tissue swelling. He has a history of DM Type II, last HgA1c 10.5 on 05/31/22, Kidney transplant one year ago, peripheral vascular disease, atherosclerotic heart disease, AMI, neuropathy, and GERD. He has received cardiac clearance from Dr. Oneill. Chest x-ray from 05/31/22 is normal. Today he denies fever, chills, nausea, vomiting. Patient has been having issues with his left TM, he was sent to ENT and an ear tube was place in the left ear only on 07/17/22. Patient has been approved for 30 treatment of hyperbaric oxygen therapy. 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 He has been changing dressings to the left foot daily. He denies any constitutional symptoms.?He continues to deny any pain today.?He has no further complaints today. Objective Data Objective Data Vital Signs: Vital Signs Temp Pulse Resp BP 97.6 F L 91 16 148/85 H 10/25/22 07:50 10/25/22 07:50 10/18/22 07:59 10/25/22 07:50 Weight: 102.058 kg Body Mass Index (BMI) 34.2 Physical Exam Narrative Physical Exam Narrative Patient is alert oriented to person, place and time.? Patient ambulates with assistance of a knee scooter on the left.? And diabetic shoe on the right. Vascular: There are atrophic changes of the skin such as thinning shiny taut appearance absent digital hair growth.? Pulses are grossly palpable 2 out of 4 dorsalis pedis and posterior tibial bilateral feet.? Mild +1 pitting edema to bilateral lower extremity. Neurologic: Light touch protective sensation completely absent to bilateral lower extremity. Dermatologic: Healed right hallux ulceration.?Digital wounds to left foot healed at this time.?Status post partial fifth ray amputation left foot with healthy granular wound at the distal aspect of the amputation site. No signs of infection. Musculoskeletal: No gross wound forming deformity.?Muscular strength full to bilateral lower extremity compartments.? No crepitus or pain noted to the wound or periwound areas. Semi-ridgid hammer toe deformity of the 3rd digit with hyperkeratoic lesion at distal tuft secondary to pressure. Const alert, oriented x3 and no apparent distress General Appearance: cooperative HEENT normocephalic Eyes General Eye: normal appearance of both eyes Neck General: normal visual inspection Lymph Lymphatic: no lymphadenopathy noted and no lymphedema noted Resp normal respiratory effort Cardio regular rate and regular rhythm Extremity normal capillary refill, no joint enlargement, no calf tenderness and no pedal edema Skin no rashes or lesions noted, skin turgor normal and no jaundice Wound Narrative: Left foot: Partial fifth ray resection noted.? Wound site measures 0.8 cm x 1.0 cm x 0.1 cm.? There is healthy appearing skin about the ulcerative rim.?There is no erythema, no expressible purulent drainage, no malodor, no other localized signs of infection.? Wound demonstrates healthy granular layer with adequate tissue bleeding. Neuro moves all extremities Debridement Note Debridement Note Wound debrided: Distal fifth metatarsal stump Laterality: Left Wound Grade/Stage: Gustafson stage III Type of Debridement: Excisional debridement Anesthesia Used: 5% Lidocaine Gel Depth: Down to and including healthy tissue and in the subcutaneous layer Percentage of wound debrided: 100 Instrument Used: 3mm curette and #15 blade Tissue Removed: Fibrous, devitalized subcutaneous, biofilm, slough Severity: Fat Layer Exposed Amount of bleeding with debridement: Mild Bleeding Controlled with: Compression and gauze Patient tolerated procedure: Patient tolerated procedure well Post-Debridement Measurements and Additional Note: Post-Debridement Measurements/Treatment - Nurse 1 - General Ulcer Assessment Start: 10/11/22 08:08 Freq: Status: Active Protocol: HOLLY Activity Type Activity Date Activity User E-sign Co-sign Detail Recorded Client Recorded Date Recorded By Document 10/11/22 08:08 RI [id number] 10/11/22 08:11 AK Document 10/18/22 07:59 RI [id number] 10/18/22 08:00 RI Document 10/25/22 07:50 RI [id number] 10/25/22 07:52 RI 10/11/22 10/18/22 10/25/22 08:08 07:59 07:50 - Today's Visit Information Type of service Follow-up Visit Follow-up Visit Follow-up Visit (Physician/INFORMATION TECHNOLOGY AUDITOR (Physician/INFORMATION TECHNOLOGY AUDITOR (Physician/INFORMATION TECHNOLOGY AUDITOR ) ) ) Arrival Mode Ambulatory, Ambulatory Ambulatory, Walker Walker Patient Identification Verified (Name & Yes Yes Yes ) Patient Requires Transmission-Based No No No Precautions Safety Precautions NA Finger Stick Blood Sugar(mg/dl) (if 149 indicated): Blood Sugar Stated by Patient Height and Weight Body Mass Index (BMI) 34.2 34.2 34.2 BMI Classification Obese Obese Obese Vital Signs Temperature (97.8 F-99.1 F) 97.6 F L 97.7 F L 97.6 F L Temperature Source Temporal Temporal Temporal Pulse Rate (60-100) 91 93 91 Pulse Location Monitor Monitor Monitor Respiratory Rate (12-18) 16 Respiratory rate source Observation Blood Pressure (90/60-120/80) 165/84 H 129/68 H 148/85 H Blood Pressure Mean (mm Hg) 111 88 106 Source Monitor Monitor Position Semi-Fowlers Blood Pressure Location Left Arm History Since Last Visit- (Skip if this is Patient's initial visit) Have you changed medications since your No No No last visit? Any new allergies or adverse reactions No No No Had a fall/change in ADL's that may No No No increase risk of falls Signs or symptoms of abuse and/or No No No neglect since last visit Have you been in the hospital since your No No No last visit? Has dressing in place as prescribed Yes Yes Yes Has compression in place as prescribed N/A Yes Yes Has offloadiing in place as prescribed N/A Yes N/A Experienced any changes in pain level or No No No management Left Footwear Regular Shoe Surgical Shoe Regular Shoe with pressure relief insole Right Footwear Surgical Shoe Regular Shoe Regular Shoe with pressure relief insole Pain Scale: 0-10 Numeric Is Patient Pain Free? Yes Yes Yes WC - Nurse 1 - General Ulcer Measurement Start: 10/11/22 08:08 Freq: Status: Active Protocol: Activity Type Activity Date Activity User E-sign Co-sign Detail Recorded Client Recorded Date Recorded By Document 10/11/22 08:08 RI [id number] 10/11/22 08:11 RI Document 10/18/22 07:59 RI [id number] 10/18/22 08:00 RI Document 10/25/22 07:50 RI [id number] 10/25/22 07:52 RI 10/11/22 10/18/22 10/25/22 08:08 07:59 07:50 Wound Center Nurse 1 #10 LL FOOT -Combined with other wound No No -Current Size (cm) - Length 1 0.1 0.7 -Current Size (cm) - Width 0.6 0.1 1.3 -Current Size (cm) - Depth 0.1 0.1 0.1 -Total Square Cm 0.6 0.01 0.91 -Date of Last Picture (Recall this 10/11/22 field) -Photo Taken Yes Yes -Epithelialization None Present -Tunneling No No -Undermining/Tunneling No No -Circular Undermining No No -Change in Wound Grade/Stage No -Exudate Amt None Present -Exudate Type Serosanguineous -Wound Margin Distinct, Outline Attached -Granulation Amt Medium (34-66%) None Present (0 %) -Granulation Quality [place] -Slough/Fibrin Yes -Necrosis Amt Medium (34-66%) -Necrotic Tissue Type Adherent Slough Adherent Slough -Structure Exposed N/A N/A -Texture ([place]-wound Skin Appearance) Assessed,Callus Assessed -Moisture ([place]-wound Skin Appearance) No Abnormality, Assessed,Dry/ Assessed Scaly -Color ([place]-wound Skin Appearance) No Abnormality, Assessed Assessed -Temperature ([place]-wound Skin No Abnormality No Abnormality No Abnormality Appearance) (Pt Warm) (Pt Warm) (Pt Warm) -Tenderness on Palpation ([place]-wound No No Skin Appearance) -Ulcer Cleansing Rinsed/ Wound Cleanser Soap and Water Irrigated with Saline -Foul Odor after Cleansing No No No -Anesthetic Used 5% Lidocaine 5% Lidocaine 5% Lidocaine Gel Gel Gel Lower Limb Edema Present NA Left Calf (cm) 40 Left Ankle (cm) 24.8 WC - Nurse 2 - General Ulcer CM Notes Start: 10/11/22 08:08 Freq: Status: Active Protocol: Activity Type Activity Date Activity User E-sign Co-sign Detail Recorded Client Recorded Date Recorded By Document 10/11/22 11:41 PL [id number] 10/11/22 11:42 PL Document 10/18/22 11:52 PL [id number] 10/18/22 11:52 PL 10/11/22 10/18/22 11:41 11:52 Wound Center Nurse 2 #10 LL FOOT -Time 08:22 08:43 -Correct Patient Yes Yes -Correct Side, Site, Position Yes Yes -Correct Procedure Yes Yes -Procedure Performed Yes Yes -Type of Procedure Debridement Debridement -Clinical Debridement Subcutaneous Subcutaneous -Tissue Removed Subcutaneous Subcutaneous -Post Debridement (cm) - Length 0.7 0.7 -Post Debridement (cm) - Width 0.6 0.5 -Post Debridement (cm) - Depth 0.1 0.1 -Total Square (Post) (cm) 0.42 0.35 -Area of Debridement (cm) - Length 0.7 0.7 -Area of Debridement (cm) - Width 0.6 0.5 -Total Square (Area) (cm) 0.42 0.35 -Tunneling No No -Undermining/Tunneling No No -Circular Undermining No No -Wound/Ulcer Outcome Not Healed Not Healed -Ulcer Cleansing Rinsed/ Rinsed/ Irrigated with Irrigated with Saline Saline -Foul Odor after Cleansing No No -Bioengineered Tissue No No -Bleeding Controlled with Pressure Pressure -Treatment Response Procedure Procedure Tolerated Well Tolerated Well -Debridement - Subq, 1st 20sq cm Yes Yes Pain Scale: 0-10 Numeric Is Patient Pain Free? Yes Yes - Nurse 3 - General Ulcer D/C NN Start: 10/11/22 08:08 Freq: Status: Active Protocol: Activity Type Activity Date Activity User E-sign Co-sign Detail Recorded Client Recorded Date Recorded By Document 10/11/22 08:36 RI [id number] 10/11/22 08:37 AK Document 10/18/22 08:53 RI [id number] 10/18/22 08:54 AK 10/11/22 10/18/22 08:36 08:53 Wound Care Center Nurse 3 #10 LL FOOT -Ulcer Cleansing Rinsed/ Rinsed/ Irrigated with Irrigated with Saline Saline -Foul Odor after Cleansing No No -Negative Pressure Wound Therapy N/A N/A -Primary Dressing Applied Promogran Promogran Rosario Matter Rosario Matter -Other Dressing ABD ABD -Primary Dressing Covered/Secured with Dry Gauze & Roll Gauze, Secured with Tape -Promogran Rosario Matter 1 1 Left -Compression Wrap Kirill Wrap Pain Scale: 0-10 Numeric Is Patient Pain Free? Yes Yes WC - Visit Discharge Discharge Condition Stable Stable Ambulatory Status Ambulatory, Ambulatory, Walker Walker Transportation Private Auto Medication Reconcilliation completed & Yes Yes provided to patient/care provider Clinical Summary of Care Provided Yes Yes Assessment/Plan Assessment/Plan (1) 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 exposed: CODE(S): L97.522 - 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 exposed (2) Diabetic foot ulcer: CODE(S): E11.621 - Type 2 diabetes mellitus with foot ulcer; L97.509 - Non-pressure chronic ulcer of other part of unspecified foot with unspecified severity QUALIFIERS: Diabetes mellitus type: type 2 Laterality: left Non- pressure ulcer stage: with necrosis of bone (3) 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: CODE(S): Z89.422 - Acquired absence of other left toe(s) (4) Type 2 diabetes mellitus with diabetic polyneuropathy: CODE(S): E11.42 - Type 2 diabetes mellitus with diabetic polyneuropathy PLAN: Plan Patient seen and evaluated in wound care center He is?s/p I&D gas gangrene left foot with partial fifth ray amputation and excision of chronic diabetic ulceration.?(DOS: 03/24/2022) POD #216 Left lower extremity: No edema noted. Fifth digit amputation noted. Previous A1c from March and May both 10.5%.? He had seen endocrinology and has demonstrated mild reduction of his A1c down to 9.9%.? He had had previous difficulties performing HBO dives due to uncontrolled sugars.? Due to his new glucose meter he will be unable to perform further HBO dives.? I discussed that despite this minimal improvement in his A1c he needs to continue diet modifications for proper glycemic control to aid in his healing and overall health.?He was encouraged to continue routine follow-ups with management lecturer so that he may get his blood sugars under control and achieve a lower A1c. Infection: During surgical intervention 03/24/22 the tissues demonstrated normal integrity and were not easily dissectible through fascial planes with a finger as seen with typical necrotizing fasciitis cases.?He did however have soft tissue crepitus with foul odor consistent with a gas gangrene, confirmed by radiograph on 03/24/2022.? 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 WBC 16.3 with left shift prior to surgical intervention.?WBC currently within normal limits.? He is finished IV antibiotic course and PICC line removed. Sx Cultures: Culture of wound/ulceration &?Bone culture fifth toe/fifth metatarsal demonstrates staph epi, Enterococcus faecalis, Streptococcus mitis/oralis, Turicella otitidis, Enterococcus casseliflavius, Peptostreptococcus prevotil, Prevotella bivia.? Cultures post surgical clearance demonstrate no growth. Wound: Wound underwent debridement as noted in clinical panel above today. Healthy granular tissue noted with no localized signs of infection.? No purulent drainage noted, no malodor noted.? Wound is continuing to granulate in well. He underwent debridement of the necrotic 4th metatarsal head on 05/24/22.?Radiographs were ordered of the left foot 05/31/22. Radiographs demonstrate: Amputation of the fifth metatarsal at the level of the mid diaphysi s.?There is interval development of osseous destruction of the base of the fourth proximal phalanx and distal fourth metatarsal suspicious of osteomyelitis.?Further debridement was performed on 05/31/22 removing nonviable tissue/bone in the base of his proximal phalanx of the fourth digit. Wound was debrided as noted in clinical panel above.?Wound measures 0.8 cm x 1.0 cm x 0.1 cm.? Ulceration did increase in size at this visit versus previous visit due to patient sleeping on his side with more macerated wound tissue secondary to his serosanguineous drainage which was trapped against the healthy skin with some redness secondary to the drainage irritation. Due to this redness and prior history I will as a precaution place him on oral antibiotic, doxycycline 100 mg twice daily x10 days. He has finished his Epi fix mesh graft. Collagen powder and hydrogel applied to ulcerative base today. No expressible purulent drainage noted. No signs of infection.?There is continued improvement in the appearance of his wound today. I will continue to monitor him for any progressing signs of infection.?He is aware that further surgical intervention may be required pending his progress. Currently prognosis is good with continued reduction in wound size Dressings: Rosario and DSD. Continue to elevate the left lower extremity at all times of rest. Patient is to remain nonweightbearing to the left lower extremity with assistance of a knee scooter. He may be partial weight bearing to Left heel for bathroom privileges and transfers. Visiting nursing to assist in dressing changes to the left foot. He will return to the wound care center in 1 week for continued localized wound care and close monitoring. Note: [employer] speech recognition running rigger software was used to create portions of this document. Sound-alike and misspelled words, as well as other running rigger errors may be contained in the documentation
[2022-11-01 07:52] VITALS: BP 135/74; PULSE 89; TEMP 36.2; BMI 34.2
--- NOTE | 2022-11-01 08:28 | PN.PCM_ITS ---
History of Present Illness Date of Service: 11/01/22 Chief Complaint: Osteomyelitis of the left foot; diabetic foot ulceration History of Wound: Patient is a 51-year-old male who presents to the wound care center for evaluation for hyperbaric oxygen therapy. He has been seeing Dr. 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 His ulcer is not making the progress that it should. He has a Gustafson stage III ulcer on his left foot. He uses a knee scooter. 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 There is interval development of osseous destruction of the head and distal diaphysis of the fourth metatarsal and base of the fourth proximal phalanx. Arterial study from 01/09/22, Right RANJAN - 1.19, Left RANJAN - NC, Left digital- brachial index is 0.67. The left digital-brachial index is mildly diminished. There is evidence of arterial calcification at ankle level on the left. Arterial flow appears normal at ankle level bilaterally, and at digital level on the right. There is evidence of mild arterial occlusive disease at digital level on the left. MRI of left lower extremity from 10/07/19 showed Marrow edema consistent osteomyelitis of the distal phalanges of the fourth and fifth toes. Soft tissue swelling. He has a history of DM Type II, last HgA1c 10.5 on 05/31/22, Kidney transplant one year ago, peripheral vascular disease, atherosclerotic heart disease, AMI, neuropathy, and GERD. He has received cardiac clearance from Dr. Oneill. Chest x-ray from 05/31/22 is normal. Today he denies fever, chills, nausea, vomiting. Patient has been having issues with his left TM, he was sent to ENT and an ear tube was place in the left ear only on 07/17/22. Patient has been approved for 30 treatment of hyperbaric oxygen therapy. Subjective Subjective Patient is a 51-year-old male who presents to the wound care center for follow- up status post I&D of gas gangrene with partial fifth ray resection in March 2022.? Does not recall injury to the forefoot however presents with degloving injury of the fourth digit as well as a purple discolored, edematous third digit. States the toe has looked like this for the past 2 days. Did not alert anyone to the discoloration of his toe. Currently denies constitutional symptoms. Objective Data Objective Data Vital Signs: Vital Signs Temp Pulse Resp BP 97.2 F L 89 16 135/74 H 11/01/22 07:52 11/01/22 07:52 10/18/22 07:59 11/01/22 07:52 Weight: 102.058 kg Body Mass Index (BMI) 34.2 Lab / Micro Data Micro: Microbiology 10/25/22 08:35 Wound - Left Foot Gram Stain - Final 10/25/22 08:35 Wound - Left Foot Wound Culture - Final Staphylococcus epidermidis Pseudomonas aeroginosa 10/25/22 08:35 Wound - Left Foot Anaerobic Culture - Final No anaerobic bacteria isolated. Physical Exam Narrative Physical Exam Narrative Patient is alert oriented to person, place and time.? Patient ambulates with assistance of a knee scooter on the left.? And diabetic shoe on the right. Vascular: There are atrophic changes of the skin such as thinning shiny taut appearance absent digital hair growth.? Pulses are grossly palpable 2 out of 4 dorsalis pedis and posterior tibial bilateral feet.? Mild +1 pitting edema to bilateral lower extremity. Neurologic: Light touch protective sensation completely absent to bilateral lower extremity. Dermatologic: Healed right hallux ulceration.?Status post partial fifth ray amputation left foot with healthy granular wound at the distal aspect of the amputation site. No signs of infection. Fourth digit degloving injury to the distal tip with complete skin removal down to full-thickness. Third digit dis colored purple, edematous with free fluid that is palpable. Musculoskeletal: No gross wound forming deformity.?Muscular strength full to bilateral lower extremity compartments.? No crepitus or pain noted to the wound or periwound areas. Semi-ridgid hammer toe deformity of the 3rd digit with hyperkeratoic lesion at distal tuft secondary to pressure. Const alert, oriented x3 and no apparent distress General Appearance: cooperative HEENT normocephalic Eyes General Eye: normal appearance of both eyes Neck General: normal visual inspection Lymph Lymphatic: no lymphadenopathy noted and no lymphedema noted Resp normal respiratory effort Cardio regular rate and regular rhythm Extremity normal capillary refill, no joint enlargement, no calf tenderness and no pedal edema Skin no rashes or lesions noted, skin turgor normal and no jaundice Wound Narrative: Left foot: Partial fifth ray resection noted.? Wound site measures 0.6 cm x 0.5 cm x 0.1 cm.? There is healthy appearing skin about the ulcerative rim.?There is no erythema, no expressible purulent drainage, no malodor, no other localized signs of infection.? Wound demonstrates healthy granular layer with adequate tissue bleeding. Fourth digit degloving injury to the distal tip with complete skin removal down to full-thickness. Third digit discolored purple, edematous with free fluid that is palpable. Neuro moves all extremities Debridement Note Debridement Note No debridement was completed: No debridement was completed today Post-Debridement Measurements and Additional Note: Post-Debridement Measurements/Treatment - Nurse 1 - General Ulcer Assessment Start: 10/11/22 08:08 Freq: Status: Active Protocol: HOLLY Activity Type Activity Date Activity User E-sign Co-sign Detail Recorded Client Recorded Date Recorded By Document 10/11/22 08:08 IN [id number] 10/11/22 08:11 IN Document 10/18/22 07:59 IN [id number] 10/18/22 08:00 IN Document 10/25/22 07:50 IN [id number] 10/25/22 07:52 IN Document 11/01/22 07:52 IN [id number] 11/01/22 07:56 AK 10/11/22 10/18/22 10/25/22 08:08 07:59 07:50 - Today's Visit Information Type of service Follow-up Visit Follow-up Visit Follow-up Visit (Physician/FINANCIAL EXAMINER (Physician/FINANCIAL EXAMINER (Physician/FINANCIAL EXAMINER ) ) ) Arrival Mode Ambulatory, Ambulatory Ambulatory, Walker Walker Patient Identification Verified (Name & Yes Yes Yes ) Patient Requires Transmission-Based No No No Precautions Safety Precautions NA Finger Stick Blood Sugar(mg/dl) (if 149 indicated): Blood Sugar Stated by Patient Height and Weight Body Mass Index (BMI) 34.2 34.2 34.2 BMI Classification Obese Obese Obese Vital Signs Temperature (97.8 F-99.1 F) 97.6 F L 97.7 F L 97.6 F L Temperature Source Temporal Temporal Temporal Pulse Rate (60-100) 91 93 91 Pulse Location Monitor Monitor Monitor Respiratory Rate (12-18) 16 Respiratory rate source Observation Blood Pressure (90/60-120/80) 165/84 H 129/68 H 148/85 H Blood Pressure Mean (mm Hg) 111 88 106 Source Monitor Monitor Position Semi-Fowlers Blood Pressure Location Left Arm History Since Last Visit- (Skip if this is Patient's initial visit) Have you changed medications since your No No No last visit? Any new allergies or adverse reactions No No No Had a fall/change in ADL's that may No No No increase risk of falls Signs or symptoms of abuse and/or No No No neglect since last visit Have you been in the hospital since your No No No last visit? Has dressing in place as prescribed Yes Yes Yes Has compression in place as prescribed N/A Yes Yes Has offloadiing in place as prescribed N/A Yes N/A Experienced any changes in pain level or No No No management Left Footwear Regular Shoe Surgical Shoe Regular Shoe with pressure relief insole Right Footwear Surgical Shoe Regular Shoe Regular Shoe with pressure relief insole Pain Scale: 0-10 Numeric Is Patient Pain Free? Yes Yes Yes 11/01/22 07:52 WC - Today's Visit Information Type of service Follow-up Visit (Physician/FINANCIAL EXAMINER ) Arrival Mode Ambulatory, Walker Patient Identification Verified (Name & Yes ) Patient Requires Transmission-Based Precautions Safety Precautions Finger Stick Blood Sugar(mg/dl) (if indicated): Blood Sugar Height and Weight Body Mass Index (BMI) 34.2 BMI Classification Obese Vital Signs Temperature (97.8 F-99.1 F) 97.2 F L Temperature Source Temporal Pulse Rate (60-100) 89 Pulse Location Monitor Respiratory Rate (12-18) Respiratory rate source Blood Pressure (90/60-120/80) 135/74 H Blood Pressure Mean (mm Hg) 94 Source Monitor Position Blood Pressure Location History Since Last Visit- (Skip if this is Patient's initial visit) Have you changed medications since your No last visit? Any new allergies or adverse reactions No Had a fall/change in ADL's that may No increase risk of falls Signs or symptoms of abuse and/or No neglect since last visit Have you been in the hospital since your No last visit? Has dressing in place as prescribed Yes Has compression in place as prescribed Yes Has offloadiing in place as prescribed N/A Experienced any changes in pain level or No management Left Footwear Regular Shoe Right Footwear Regular Shoe Pain Scale: 0-10 Numeric Is Patient Pain Free? Yes WC - Nurse 1 - General Ulcer Measurement Start: 10/11/22 08:08 Freq: Status: Active Protocol: Activity Type Activity Date Activity User E-sign Co-sign Detail Recorded Client Recorded Date Recorded By Document 10/11/22 08:08 IN [id number] 10/11/22 08:11 AK Document 10/18/22 07:59 AK [id number] 10/18/22 08:00 AK Document 10/25/22 07:50 AK [id number] 10/25/22 07:52 AK Document 11/01/22 07:52 AK [id number] 11/01/22 07:56 AK 10/11/22 10/18/22 10/25/22 08:08 07:59 07:50 Wound Center Nurse 1 #10 LL FOOT -Combined with other wound No No -Current Size (cm) - Length 1 0.1 0.7 -Current Size (cm) - Width 0.6 0.1 1.3 -Current Size (cm) - Depth 0.1 0.1 0.1 -Total Square Cm 0.6 0.01 0.91 -Date of Last Picture (Recall this 10/11/22 field) -Photo Taken Yes Yes -Epithelialization None Present -Tunneling No No -Undermining/Tunneling No No -Circular Undermining No No -Change in Wound Grade/Stage No -Exudate Amt None Present -Exudate Type Serosanguineous -Wound Margin Distinct, Outline Attached -Granulation Amt Medium (34-66%) None Present (0 %) -Granulation Quality [place] -Slough/Fibrin Yes -Necrosis Amt Medium (34-66%) -Necrotic Tissue Type Adherent Slough Adherent Slough -Structure Exposed N/A N/A -Texture (Dunia-wound Skin Appearance) Assessed,Callus Assessed -Moisture (Dunia-wound Skin Appearance) No Abnormality, Assessed,Dry/ Assessed Scaly -Color (Dunia-wound Skin Appearance) No Abnormality, Assessed Assessed -Temperature (Dunia-wound Skin No Abnormality No Abnormality No Abnormality Appearance) (Pt Warm) (Pt Warm) (Pt Warm) -Tenderness on Palpation (Dunia-wound No No Skin Appearance) -Ulcer Cleansing Rinsed/ Wound Cleanser Soap and Water Irrigated with Saline -Foul Odor after Cleansing No No No -Anesthetic Used 5% Lidocaine 5% Lidocaine 5% Lidocaine Gel Gel Gel -Wound Comment(s) Lower Limb Edema Present NA Left Calf (cm) 40 Left Ankle (cm) 24.8 11/01/22 07:52 Wound Center Nurse 1 #10 LL FOOT -Combined with other wound No -Current Size (cm) - Length 0.4 -Current Size (cm) - Width 0.3 -Current Size (cm) - Depth 0.1 -Total Square Cm 0.12 -Date of Last Picture (Recall this 11/01/22 field) -Photo Taken Yes -Epithelialization -Tunneling No -Undermining/Tunneling No -Circular Undermining No -Change in Wound Grade/Stage No -Exudate Amt None Present -Exudate Type -Wound Margin Distinct, Outline Attached -Granulation Amt None Present (0 %) -Granulation Quality N/A -Slough/Fibrin No -Necrosis Amt None Present (0 %) -Necrotic Tissue Type -Structure Exposed N/A -Texture (Dunia-wound Skin Appearance) Assessed,Callus -Moisture (Dunia-wound Skin Appearance) No Abnormality, Assessed -Color (Dunia-wound Skin Appearance) No Abnormality, Assessed -Temperature (Dunia-wound Skin No Abnormality Appearance) (Pt Warm) -Tenderness on Palpation (Dunia-wound No Skin Appearance) -Ulcer Cleansing Soap and Water -Foul Odor after Cleansing No -Anesthetic Used 5% Lidocaine Gel -Wound Comment(s) l pinky toe degloved and 4th L toe next to it swollen purple hematoma . Pt not sure what happened. Lower Limb Edema Present Left Calf (cm) Left Ankle (cm) WC - Nurse 2 - General Ulcer CM Notes Start: 10/11/22 08:08 Freq: Status: Active Protocol: Activity Type Activity Date Activity User E-sign Co-sign Detail Recorded Client Recorded Date Recorded By Document 10/11/22 11:41 PL [id number] 10/11/22 11:42 PL Document 10/18/22 11:52 PL [id number] 10/18/22 11:52 PL Document 10/25/22 11:42 PL [id number] 10/25/22 11:45 PL 10/11/22 10/18/22 10/25/22 11:41 11:52 11:42 Wound Center Nurse 2 #10 LL FOOT -Time 08:22 08:43 08:30 -Correct Patient Yes Yes Yes -Correct Side, Site, Position Yes Yes Yes -Correct Procedure Yes Yes Yes -Procedure Performed Yes Yes Yes -Type of Procedure Debridement Debridement Debridement -Clinical Debridement Subcutaneous Subcutaneous Subcutaneous -Tissue Removed Subcutaneous Subcutaneous Subcutaneous -Post Debridement (cm) - Length 0.7 0.7 0.8 -Post Debridement (cm) - Width 0.6 0.5 1.0 -Post Debridement (cm) - Depth 0.1 0.1 0.1 -Total Square (Post) (cm) 0.42 0.35 0.80 -Area of Debridement (cm) - Length 0.7 0.7 0.8 -Area of Debridement (cm) - Width 0.6 0.5 1.0 -Total Square (Area) (cm) 0.42 0.35 0.80 -Tunneling No No No -Undermining/Tunneling No No No -Circular Undermining No No No -Wound/Ulcer Outcome Not Healed Not Healed Not Healed -Ulcer Cleansing Rinsed/ Rinsed/ Rinsed/ Irrigated with Irrigated with Irrigated with Saline Saline Saline -Foul Odor after Cleansing No No No -Bioengineered Tissue No No No -Bleeding Controlled with Pressure Pressure Pressure -Treatment Response Procedure Procedure Procedure Tolerated Well Tolerated Well Tolerated Well -Debridement - Subq, 1st 20sq cm Yes Yes Yes Pain Scale: 0-10 Numeric Is Patient Pain Free? Yes Yes Yes WC - Nurse 3 - General Ulcer D/C NN Start: 10/11/22 08:08 Freq: Status: Active Protocol: Activity Type Activity Date Activity User E-sign Co-sign Detail Recorded Client Recorded Date Recorded By Document 10/11/22 08:36 AK [id number] 10/11/22 08:37 AK Document 10/18/22 08:53 AK [id number] 10/18/22 08:54 AK Document 10/25/22 09:17 JF [id number] 10/25/22 09:18 JF 10/11/22 10/18/22 10/25/22 08:36 08:53 09:17 Wound Care Center Nurse 3 #10 LL FOOT -Ulcer Cleansing Rinsed/ Rinsed/ Rinsed/ Irrigated with Irrigated with Irrigated with Saline Saline Saline -Foul Odor after Cleansing No No No -Negative Pressure Wound Therapy N/A N/A -Primary Dressing Applied Promogran Promogran C Hydrogel ($), Rosario Matter Rosario Matter Collagen Powder ($) -Other Dressing ABD ABD -Primary Dressing Covered/Secured with Dry Gauze & Dry Gauze & Roll Gauze, Roll Gauze, Secured with Secured with Tape Tape -Promogran Rosario Matter 1 1 Left -Compression Wrap Kirill Wrap Kirill Wrap Pain Scale: 0-10 Numeric Is Patient Pain Free? Yes Yes Yes WC - Visit Discharge Discharge Condition Stable Stable Stable Ambulatory Status Ambulatory, Ambulatory, Walker Walker Walker Transportation Private Auto Private Auto Medication Reconcilliation completed & Yes Yes Yes provided to patient/care provider Clinical Summary of Care Provided Yes Yes Yes Assessment/Plan Assessment/Plan (1) 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 exposed: CODE(S): L97.522 - 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 exposed (2) Diabetic foot ulcer: CODE(S): E11.621 - Type 2 diabetes mellitus with foot ulcer; L97.509 - Non-pressure chronic ulcer of other part of unspecified foot with unspecified severity QUALIFIERS: Diabetes mellitus type: type 2 Laterality: left Non- pressure ulcer stage: with necrosis of bone (3) 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: CODE(S): Z89.422 - Acquired absence of other left toe(s) (4) Type 2 diabetes mellitus with diabetic polyneuropathy: CODE(S): E11.42 - Type 2 diabetes mellitus with diabetic polyneuropathy PLAN: Plan Patient seen and evaluated in wound care center He is?s/p I&D gas gangrene left foot with partial fifth ray amputation and excision of chronic diabetic ulceration.?(DOS: 03/24/2022) POD #223 Left lower extremity: No edema noted. Fifth digit amputation noted. Fourth digit degloving injury and third digit necrosis/purpleish blackened coloration with palpable fluid accumulation below the skin level. Previous A1c from March and May both 10.5%.? He had seen endocrinology and has demonstrated mild reduction of his A1c down to 9.9%.? He had had previous difficulties performing HBO dives due to uncontrolled sugars.? Due to his new glucose meter he will be unable to perform further HBO dives.? I discussed that despite this minimal improvement in his A1c he needs to continue diet modifications for proper glycemic control to aid in his healing and overall health.?He was encouraged to continue routine follow-ups with supervisor typesetting so that he may get his blood sugars under control and achieve a lower A1c. Infection: During surgical intervention 03/24/22 the tissues demonstrated normal integrity and were not easily dissectible through fascial planes with a finger as seen with typical necrotizing fasciitis cases.?He did however have soft tissue crepitus with foul odor consistent with a gas gangrene, confirmed by radiograph on 03/24/2022.? 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 WBC 16.3 with left shift prior to surgical intervention.?WBC currently within normal limits.? He is finished IV antibiotic course and PICC line removed. Sx Cultures: Culture of wound/ulceration &?Bone culture fifth toe/fifth metatarsal demonstrates staph epi, Enterococcus faecalis, Streptococcus mitis/oralis, Turicella otitidis, Enterococcus casseliflavius, Peptostreptococcus prevotil, Prevotella bivia.? Cultures post surgical clearance demonstrate no growth. Wound: Wound underwent debridement as noted in clinical panel above today. Healthy granular tissue noted with no localized signs of infection.? No purulent drainage noted, no malodor noted.? Wound is continuing to granulate in well. He underwent debridement of the necrotic 4th metatarsal head on 05/24/22.?Radiographs were ordered of the left foot 05/31/22. Radiographs demonstrate: Amputation of the fifth metatarsal at the level of the mid diaphysis.?There is interval development of osseous destruction of the base of the fourth proximal phalanx and distal fourth metatarsal suspicious of osteomyelitis.?Further debridement was performed on 05/31/22 removing nonviable tissue/bone in the base of his proximal phalanx of the fourth digit. Wound was debrided as noted in clinical panel above.?Wound measures 0.6 cm x 0.5 cm x 0.1 cm.? Ulceration noted to be improved today versus previous visit. Patient had been sleeping on his side with more macerated wound tissue secondary to his serosanguineous drainage which was trapped against the healthy skin with some redness secondary to the drainage irritation. Due to this redness and prior history I placed him on oral antibiotic, doxycycline 100 mg twice daily x10 days. He has finished his Epi fix mesh graft. Today 11/01/2022 he presents to the wound care center denying any knowledge of injury to the left forefoot however presents with degloving injury of the fourth digit with free skin hanging at the dorsal aspect just distal to the tip of the nail with complete plantar tissue disruption with wound full-thickness. No signs of infection in the fourth digit. Third digit is noted to be purpleish black in coloration/necrotic, severely edematous with palpable fluid accumulation below the surface. He states that it has been like this for the past 2 days. I did discuss with him that this digit likely has soft tissue gas infection and he would need to go to the ED for further work-up including radiographs. I discus sed with him the expected plan at this time given that soft tissue infection may be present that he would likely undergo a transmetatarsal amputation given his prior history of a partial fifth ray resection and fourth metatarsal head resection. Patient is visibly shaken by the possibility of losing the forefoot however I discussed with him that this would likely be the best course of action in order to salvage the foot given his history. Currently prognosis of his lateral foot ulceration is good with continued reduction in wound size. Dressings: Rosario and DSD. Continue to elevate the left lower extremity at all times of rest. Patient is to remain nonweightbearing to the left lower extremity with assistance of a knee scooter. He may be partial weight bearing to Left heel for bathroom privileges and transfers. Was instructed to go straight to the ED for further evaluation and work-up for likely soft tissue gas infection possible osteomyelitis of the third digit of the left foot. Note: [employer] speech recognition emergency room tech software was used to create portions of this document. Sound-alike and misspelled words, as well as other emergency room tech errors may be contained in the documentation
== END 2022-11-06 23:59 | disposition home or self-care (01) ==
LOC: WC 08:00
PROVIDERS: PCP Internal Medicine; Referring Provider Podiatrist; Visit Provider Student in an Organized Health Care Education/Training Program
DX: E11.621 Type 2 diabetes mellitus with foot ulcer (principal); Z89.422 Acquired absence of other left toe(s); L97.514 Non-pressure chronic ulcer of other part of right foot with necrosis of bone; L97.522 Non-pressure chronic ulcer of other part of left foot with fat layer exposed; M86.9 Osteomyelitis, unspecified; E11.42 Type 2 diabetes mellitus with diabetic polyneuropathy; I25.10 Atherosclerotic heart disease of native coronary artery without angina pectoris
CPT/HCPCS: 11042; 87070; 87075; 87077; 87186; 87205; 99213; G0463

== ENCOUNTER 2022-11-01 09:22 | Inpatient (IN) | payer MEDICARE, MEDICAID, SELFPAY ==
[2022-11-01] VITALS (13 sets, daily range): BP systolic 144–173; BP diastolic 40–96; PULSE 81–92; RESP 16–20; TEMP 36.2–36.6; O2SAT 92–99; BMI 80.3
--- NOTE | 2022-11-01 09:41 | EKG12_ITS ---
Test Reason : Blood Pressure : / mmHG Vent. Rate : 079 BPM Atrial Rate : 079 BPM P-R Int : 196 ms QRS Dur : 106 ms QT Int : 376 ms P-R-T Axes : 037 -30 030 degrees QTc Int : 431 ms Normal sinus rhythm Left axis deviation Possible Anterior infarct , age undetermined Abnormal ECG Confirmed by ALEXEY NORTON, ADRIANO ([id number]), commissioning editor JEANETTE MARQUEZ ([id number]) on 11/02/2022 12:41:50 PM Referred By: ALIYA Confirmed By:ADRIANO BLACKBURN MD
--- NOTE | 2022-11-01 09:42 | RAD_ITS ---
STUDY: X-RAY - LEFT FOOT CLINICAL: Male, 51 years old. Swelling and redness overlying the fourth and fifth toes TECHNIQUE: 3 view(s) of the foot. COMPARISON: Comparison is made with prior study dated 05/31/2002. FINDINGS: Normal talus, calcaneus, and tarsal bones. Normal visualized subtalar, talonavicular, calcaneocuboid, tarsal and tarsometatarsal articulations. The patient is status post resection of the mid and distal portion of the fifth metacarpal as well as the fifth toe. There is degenerative arthrosis of the metatarsophalangeal joint of the hallux . Normal tibial and fibular sesamoid bones. Normal interphalangeal joint of the great toe. Normal phalanges of the great toe. There has been resection of the fifth toe. Partial resection at the base of the proximal phalanx of the fourth toe as well as partial resection of the distal portion of the fourth metatarsal. Flexion contraction of the second and third distal interphalangeal joints. There is no demonstrated soft tissue swelling. Ulceration seen overlying the distal portion of the fourth metatarsal. Vascular calcification. RAD/Foot min 3 Views IMPRESSION: Status post resection of the distal portion of the fifth metatarsal as well as the fifth toe. Partial resection of the distal aspect of the fourth metatarsal and proximal base of the fourth toe. Diffuse soft tissue swelling. Findings suggestive of a an ulceration overlying the distal aspect of the fourth metatarsal. Vascular calcification. Electronically Signed: Tristan France MD at 10:25 EST ,
--- NOTE | 2022-11-01 10:02 | EX.ED.DYSGE1 ---
HPI History of Present Illness Chief Complaint: Cellulitis Detail of Chief Complaint: Cellulitis and infected third and fourth left toe Informant: patient, spouse/S.O. and other (Dr. Levy, laboratory technical specialist) Onset/Context/Timing Onset: Days (Patient states he noted changes in toes 2 days ago.) Context: Sudden Onset Timing: Continuous Quality: Blister fourth toe and discoloration third toe Location: Left foot Current Severity: Moderate Maximum Severity: Moderate Worsened by: Unknown Relieved by: Nothing Associated Symptoms Associated Symptoms: Nothing Narrative Narrative: Patient is a 51-year-old male with multiple medical problems who was seen today at podiatry/wound clinic. He was seen by Dr. Jimenez Medina. Chief complaint per Dr. Medina is osteomyelitis of left foot; diabetic foot ulceration. Patient had I&D for gas gangrene with partial fifth ray resection on March 24, 2022. The ulcer has not progressed with regards to healing. Dr. Medina commented he has Gustafson stage III ulcer on his left foot. He apparently navigates using a knee scooter. X-ray that was obtained on May 31 revealed osseous destruction of the head and distal diaphysis of the fourth metatarsal and base of the fourth proximal phalanx. Patient had arterial study performed January 09, 2022. Right ankle-brachial index is 1.19. Left ankle-brachial index is not critical. Index is 0.67. There was evidence of mild arterial occlusive disease at the digital level on the left. Patient states the skin was unroofed by Dr. Medina at the wound center. This involved the distal portion of the left fourth toe. Patient denies injury. He informed Dr. Medina that his symptom started 2 days ago. He did notify anyone of discoloration of his toes. Patient denies fever, chills night sweats. Patient does endorse symptoms of claudication after walking 1-2 blocks. Suspect patient dynamic peripheral arterial studies will show significant abnormality. Patient denies smoking. Patient states his blood sugars have been running in the 200 range, which is not abnormal for him. Patient denies cardiac respiratory symptoms. Patient denies GI symptoms. Patient denies urologic symptoms. Previous A1c level noted elevation of 10.5. Patient has significant cardiovascular disease. Per review of Dr. Vj Cabral's notes authored 01/19/2021 reveal history of coronary disease (mild), diastolic congestive heart failure, left ventricular hypertrophy, hypertension. He also has history of type II diabetic neuropathy. Patient presently chews. He does not smoke cigarettes. [facility] Medical History Acute hypoxemic respiratory failure Acute on chronic diastolic CHF (congestive heart failure) Acute respiratory failure with hypoxia ILDA (acute kidney injury) Anasarca associated with disorder of kidney Anemia of chronic renal failure, stage 4 (severe) Anxiety and depression Atherosclerotic heart disease of [place] coronary artery without angina pectoris Autonomic neuropathy Blind left eye Cellulitis and abscess of right leg Cellulitis of left lower limb Chewing tobacco nicotine dependence Chronic renal failure, stage 4 (severe) Chronic renal failure, stage 5 Chronic ulcer of 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 Congestive heart failure (CHF) COVID-19 COVID-19 Diabetes mellitus type II, uncontrolled Diabetic foot infection Diabetic foot ulcer Diabetic nephropathy Diabetic neuropathy Diabetic retinopathy Dyspnea Essential hypertension Fistula (~12/2018) Gas gangrene of foot GERD (gastroesophageal reflux disease) History of acute myocardial infarction History of left heart catheterization (LHC) (~06/26/11) HLD (hyperlipidemia) Hypertensive emergency Hypoglycemia Hypokalemia Hypoxemia Kidney failure Kidney stones Necrotizing fasciitis 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 exposed Noncompliance Obesity (BMI 30-39.9) Pneumonia Problem with dialysis access Pulmonary edema Respiratory failure Retention, urine Right leg pain 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 Vision problems Home Medications insulin lispro 100 unit/mL subcutaneous pen 16 unit SQ TID blood sugar 10/06/19 [History Last Taken 10/31/22] insulin glargine 100 unit/mL (3 mL) subcutaneous pen 44 unit subcut DAILY blood sugar 08/11/20 [History Last Taken 10/31/22] docusate sodium 100 mg capsule (Colace) 100 mg PO DAILY constipation 09/18/21 [History Last Taken 10/28/22] pantoprazole 20 mg tablet,delayed release (Protonix) 20 mg PO DAILY gerd 09/18/21 [History Last Taken 11/01/22 07:00] prednisone 5 mg tablet 5 mg PO DAILY steroid 09/18/21 [History Last Taken 11/01/22 07:00] tacrolimus 1 mg tablet,extended release 24 hr (Envarsus XR) 1 mg PO DAILY rejection med 09/18/21 [History Last Taken 11/01/22 07:00] carvedilol 25 mg tablet 25 mg PO BID HEART 12/26/21 [History Last Taken 11/01/22 07:00] cholecalciferol (vitamin D3) 25 mcg (1,000 unit) capsule (Vitamin D3) 50 mcg PO FR SUPPLEMENT' 12/26/21 [History Last Taken 10/26/22] losartan 25 mg tablet 25 mg PO DAILY BP 09/05/22 [History Last Taken 11/01/22 07:00] sulfamethoxazole 400 mg-trimethoprim 80 mg tablet 1 tablet PO DAILY INFECTION 09/05/22 [History Last Taken 11/01/22 07:00] acetaminophen 500 mg tablet 1,000 mg PO Q4H PRN Pain 11/01/22 [History Last Taken 10/31/22] aspirin 81 mg chewable tablet 81 mg PO DAILY HEALTH 11/01/22 [History Last Taken 11/01/22 07:00] bupropion HCl 300 mg 24 hr tablet, extended release 300 mg PO DAILY MOOD 11/01/22 [History Last Taken 11/01/22 07:00] gabapentin 100 mg capsule 100 mg PO QHS NERVE PAIN 11/01/22 [History Last Taken 10/31/22] Allergy/AdvReac Type Severity Reaction Status Date / Time No Known Allergies Allergy Verified 10/18/22 09:18 Family History Mother Heart disease Hypertension Father Cancer Brother Cancer Diabetes Sister Diabetes Other Alcohol abuse Depression H/O transfusion of whole blood Kidney disease Surgical History (Updated 11/02/22 @ 11:[address] Satish Nava MD) History of appendectomy History of arteriovenostomy for renal dialysis (~08/2018) History of artificial lens replacement History of cholecystectomy History of eye surgery Kidney replaced by transplant Renal transplant recipient Status post insertion of dialysis catheter (~08/2018) Social History household members: spouse Smoking Status: Never smoker second hand exposure: No alcohol intake: never substance use type: does not use caffeine: No what type of physical activity do you participate in: none ROS ROS ED Constitutional Constitutional ED: Denies chills, fever(s), subjective, sweats or weight loss Eyes Eyes: Denies blurry vision, change in vision or diplopia ENT ENT ED: Denies ear pain, rhinorrhea or sore throat Cardiovascular Cardiovascular: Denies chest pain, orthopnea, palpitations, paroxysmal nocturnal dyspnea or racing heartbeat Respiratory/Chest Respiratory/Chest: Denies cough, dyspnea, dyspnea on exertion, orthopnea or paroxysmal nocturnal dyspnea Gastrointestinal Gastrointestinal: Denies abdominal pain, constipation, diarrhea, melena, nausea or vomiting Genitourinary Genitourinary ED: Denies dysuria, hematuria or urinary frequency Musculoskeletal Musculoskeletal: Reports other Details: Diabetic foot infection ; Denies arthralgias, back pain, myalgias or neck pain Integumentary Reports abscess Neurologic Neurologic: Reports other Details: Patient states he has no sensation in his feet due to diabetic neuropathy. ; Denies headache(s), paresthesias or weakness Psychiatric Psychiatric: Reports depression Endocrine Endocrinology: Reports polydipsia and polyuria; Denies cold intolerance or heat intolerance Hematologic/Lymphatic Hematologic/Lymphatic: Reports systems reviewed and no addt'l complaints, except as documented EXAM Physical Exam Const Vital Signs: 11/01/22 09:23 11/01/22 09:42 11/01/22 09:48 Temperature 97.6 F L 97.6 F L Temperature Source Temporal Temporal Pulse Rate 89 89 Respiratory Rate 16 16 Blood Pressure 166/79 H 166/79 H Blood Pressure Mean 108 108 Pulse Ox 97 98 Oxygen Delivery Method Room Air Room Air Room Air Positive well nourished, well developed, obese and unkempt General Appearance ED: unkempt, well developed, NAD and pallor; Negative for cyanotic or diaphoretic Nutritional Appearance: obese HEENT Reports dry mucous membranes HEENT Narrative: Head is atraumatic normocephalic. Ears are normal. Nares are patent. Posterior pharynx out erythema or exudate. Mouth ED: Yes dry mucous membranes Mouth: dry mucous membranes Eyes PERRL and EOMs intact bilaterally General Eye ED: Negative for pale conjunctiva or scleral icterus Neck no lymphadenopathy, supple and no JVD Chest Wall inspection of chest normal and palpation of chest normal Resp normal respiratory effort and clear to auscultation bilaterally Cardio regular rate, regular rhythm, S1 normal heart sound, S2 normal heart sound and no murmurs GI normal to inspection, nondistended, normoactive bowel sounds, non-tender, non-distended and no masses; Negative for hepatosplenomegaly Palpation: soft Back/Spine no CVA tenderness Extremity Extremity Narrative: Patient has a swollen discolored left third toe with an ulcer on the plantar surface. There is cellulitis of the dorsal third of the left foot. There is no lymphangitis. DP pulses palpable. PT pulse is not palpable. Patient skin has been removed on the left fourth toe. Patient has findings consistent with peripheral arterial disease, suspect this to be microvascular due to his poorly controlled diabetes. Neuro oriented x3, CN's II-XII intact bilaterally and No no sensory deficits noted Sensorium / Orientation: alert Psych Appearance: unkempt Skin No no rashes or lesions noted and No no wounds General Skin Exam: pallor; Negative for elasticity normal or jaundice MDM MDM MDM Narrative Medical decision making narrative: Patient has a diabetic foot infection and concern for osteomyelitis of the left third toe. There is an odor to his toe. There is no drainage noted with palpation from the ulceration on the plantar surface. There is evidence of cellulitis. Sepsis work-up was undertaken. Spoke with Dr. Levy who works with Dr. Medina. Plan is to OR for amputation. We will speak to patient. Patient was started on IV Zosyn and vancomycin. Patient was made NPO. Inflammatory markers were obtained and used as baseline for postoperative care. Prior records were reviewed and documented in the HPI narrative. Lab Data Attestation: I reviewed the patient's lab results. Lab results narrative: CBC is unremarkable. Coags are normal. Basic metabolic panel is marked for glucose of 266 with a normal CO2 anion gap. BUN and creatinine are elevated at 37 and 1.63. Potassium is mildly elevated 5.2. Labs: Laboratory Results - last 24 hr 11/01/22 11/01/22 11/01/22 09:49 09:49 09:49 WBC 6.4 RBC 5.23 Hgb 15.9 Hct 49.7 MCV 95.0 H MCH 30.4 MCHC 32.0 RDW Std Deviation 44.9 H RDW Coeff of Tomy 12.7 Plt Count 199 MPV 9.9 Immature Gran % (Auto) 0.500 Neut % (Auto) 67.5 Lymph % (Auto) 21.1 [place] % (Auto) 9.7 Eos % (Auto) 0.9 Baso % (Auto) 0.3 Absolute Neuts (auto) 4.3 Absolute Lymphs (auto) 1.35 Nucleated RBC % 0 ESR 10 PT 13.4 INR 1.1 APTT 28.9 Sodium 139 Potassium 5.2 H Chloride 108 H Carbon Dioxide 25.0 Anion Gap 6 BUN 37 H Creatinine 1.63 H Estim Creat Clear Calc 50.71 Est GFR (MDRD) Af Amer 57 L Est GFR (MDRD) Non-Af 47 L BUN/Creatinine Ratio 22.7 H Glucose 266 H Lactic Acid Calcium 9.6 Total Bilirubin 0.50 AST 23 ALT 41 Alkaline Phosphatase 156 H C-React Prot Ext Range 10.80 H Total Protein 7.2 Albumin 3.5 Globulin 3.7 Albumin/Globulin Ratio 0.9 11/01/22 09:49 WBC RBC Hgb Hct MCV MCH MCHC RDW Std Deviation RDW Coeff of Tomy Plt Count MPV Immature Gran % (Auto) Neut % (Auto) Lymph % (Auto) [place] % (Auto) Eos % (Auto) Baso % (Auto) Absolute Neuts (auto) Absolute Lymphs (auto) Nucleated RBC % ESR PT INR APTT Sodium Potassium Chloride Carbon Dioxide Anion Gap BUN Creatinine Estim Creat Clear Calc Est GFR (MDRD) Af Amer Est GFR (MDRD) Non-Af BUN/Creatinine Ratio Glucose Lactic Acid 1.4 Calcium Total Bilirubin AST ALT Alkaline Phosphatase C-React Prot Ext Range Total Protein Albumin Globulin Albumin/Globulin Ratio Radiography Chest X-Ray - ED: Read by ED Physician (2 view chest x-ray reveals limited inspiratory volume. There is no acute process noted. There is evidence of cardiomegaly. Perihilar regions unremarkable. Osseous structures unremarkable.) and - (Three-view x-ray of the left foot reveals amputation of the left little toe and fifth metatarsal. There is abnormality of the proximal phalanx and head of the fourth metatarsal. Review of prior records indicates this is old. There is soft tissue swelling noted of the third and fourth toe. There ) Diagnostic Testing: Clinical Impression(s) from Imaging Studies Foot X-Ray 11/01/22 09:42 IMPRESSION: Status post resection of the distal portion of the fifth metatarsal as well as the fifth toe. Partial resection of the distal aspect of the fourth metatarsal and proximal base of the fourth toe. Diffuse soft tissue swelling. Findings suggestive of a an ulceration overlying the distal aspect of the fourth metatarsal. Vascular calcification. Electronically Signed: Tristan France MD at 10:25 EST , Chest X-Ray 11/01/22 10:05 IMPRESSION: Cardiomegaly. The lungs are clear. Electronically Signed: Tristan France MD at 10:30 EST , EKG Initial EKG: Attestation: I personally reviewed and interpreted this EKG as follows: Interpretation: Sinus Rhythm (Ventricular rate is 78. There is a left axis. IA intervals 196 ms. QRS durations 106 ms. QT duration 376 ms. There is decreased anterior force. There is no acute ischemic changes noted.) Prior: Unchanged (EKG dated May 31, 2022) Critical Care Time Critical Care Time: Yes Critical care time (excluding procedures): 30-74 minutes (32), Including time spent: (History, physical, documentation, review of prior records, discussion with podiatry and hospitalist for preoperative clearance. Plan is to OR), Discussing w/Patient &/or Family/E Learning Specialist, Discussing w/Consultants and Arranging Admission or Transfer Discharge Plan Dx/Rx/DC Orders Clinical Impression: Type 2 diabetes mellitus with left diabetic foot infection, Diabetic nephropathy, Chronic renal failure, stage 4 (severe), Anemia of chronic renal failure, stage 4 (severe), Atherosclerotic heart disease of [place] coronary artery without angina pectoris, Other specified peripheral vascular diseases, Type 2 diabetes mellitus with hyperglycemia, History of diastolic dysfunction, History of CAD (coronary artery disease) Disposition Disposition: Acute Care [facility]
--- NOTE | 2022-11-01 10:05 | RAD_ITS ---
STUDY: X-RAY CHEST REASON FOR EXAM: Male, 51 years old. Pre op TECHNIQUE: AP and lateral views of the chest. COMPARISON: Comparison is made with prior study dated 05/31/2022. FINDINGS: EKG electrodes are seen. The lungs are clear and expanded. There is no demonstrated pleural abnormality. There is moderate cardiac enlargement. Normal mediastinum and reena. Normal visualized pulmonary arteries. Normal visualized aortic arch and descending thoracic aorta. Normal visualized thoracic spine. Normal visualized ribs, clavicles, and shoulders. There is no demonstrated abnormality of the visualized soft tissue structures of the upper abdomen. RAD/Chest PA and Lateral IMPRESSION: Cardiomegaly. The lungs are clear. Electronically Signed: Tristan France MD at 10:30 EST ,
--- NOTE | 2022-11-01 10:07 | PCM.CONS.GEN ---
Assessment & Plan Assessment/Plan (1) Diabetic infection of left foot: PLAN: Exam performed. Radiographs suggestive of abscess to left foot. No evidence of acute gas infection. Patient vitally stable, inflammatory labs pending. Patient received vancomycin and Zosyn in ER. Patient has not eaten yet today. Patient has history of gas infection left foot requiring left partial ray resection. Patient has failed to heal his wounds over the past year. Over the past couple weeks his wounds have worsened and there is noted to be a acute abscess in the wound care center today. At this time I recommend urgent left transmetatarsal amputation. Discussed and patient risks and benefits of performing left transmetatarsal amputation. Due to chronic foot wound nonhealing over the past year is recommended patient to proceed with transmetatarsal amputation for 1 infection clearance purposes and for 2 a balance functional amputation with low risk of reulceration. Discussed with patient performing this urgently as patient has acute infection to left lower extremity and attempt to clear this infection and limit the systemic effects we will plan for transmetatarsal amputation today. Patient in agreement at this time. Recommend infectious disease consult. Patient to be admitted with hospitalist on board. We will follow closely while in house. (2) Abscess of left foot: (3) Cellulitis of foot, left: (4) Type 2 diabetes mellitus with diabetic polyneuropathy: (5) Non-pressure chronic ulcer of other part of left foot with necrosis of bone: HPI Consult Data Date of Consult: 11/01/22 HPI Narrative HPI Narrative: ITALO BURGOS, is a 51 M who presents with a chronic left foot wound that is subsequently worsened over the past couple weeks. Patient was seen by Dr. Medina in the wound care center today. Patient noted to have an acute infection. Patient noticed blistering increased drainage redness warmth and swelling to left foot. At current patient denies any constitutional symptoms. Patient denies any pain. Patient has history of diabetes with significant neuropathy. Patient has been treated for an acute gas infection in the past which required partial amputation of the fifth ray. Patient consenting to transmetatarsal amputation today. No other complaints. [facility] Medical History (Updated 11/01/22 @ 10:[address] Mayo Levy DPM) Acute hypoxemic respiratory failure Acute on chronic diastolic CHF (congestive heart failure) Acute respiratory failure with hypoxia ILDA (acute kidney injury) Anasarca associated with disorder of kidney Anemia of chronic renal failure, stage 4 (severe) Anxiety and depression Atherosclerotic heart disease of [place] coronary artery without angina pectoris Autonomic neuropathy Blind left eye Cellulitis and abscess of right leg Cellulitis of left lower limb Chewing tobacco nicotine dependence Chronic renal failure, stage 4 (severe) Chronic renal failure, stage 5 Chronic ulcer of 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 Congestive heart failure (CHF) COVID-19 COVID-19 Diabetes mellitus type II, uncontrolled Diabetic foot infection Diabetic foot ulcer Diabetic nephropathy Diabetic neuropathy Diabetic retinopathy Dyspnea Essential hypertension Fistula (~12/2018) Gas gangrene of foot GERD (gastroesophageal reflux disease) History of acute myocardial infarction History of left heart catheterization (LHC) (~06/26/11) HLD (hyperlipidemia) Hypertensive emergency Hypoglycemia Hypokalemia Hypoxemia Kidney failure Kidney stones Necrotizing fasciitis 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 exposed Noncompliance Obesity (BMI 30-39.9) Pneumonia Problem with dialysis access Pulmonary edema Respiratory failure Retention, urine Right leg pain 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 Vision problems Home Medications aspirin 81 mg chewable tablet 81 mg PO DAILY@0800 heart health 08/21/18 [History Last Taken 10/06/19] insulin lispro 100 unit/mL subcutaneous pen See Protocol SQ ACHS blood sugar 10/06/19 [History Last Taken 10/06/19] insulin glargine 100 unit/mL (3 mL) subcutaneous pen 0 unit subcut QHS blood sugar 08/11/20 [History Last Taken Unknown] bupropion HCl 150 mg 24 hr tablet, extended release (Wellbutrin XL) 300 mg PO DAILY mood 09/18/21 [History Last Taken Unknown] docusate sodium 100 mg capsule (Colace) 100 mg PO DAILY constipation 09/18/21 [History Last Taken Unknown] pantoprazole 20 mg tablet,delayed release (Protonix) 20 mg PO DAILY gerd 09/18/21 [History Last Taken Unknown] prednisone 5 mg tablet 5 mg PO DAILY steroid 09/18/21 [History Last Taken Unknown] tacrolimus 1 mg tablet,extended release 24 hr (Envarsus XR) 1 mg PO DAILY rejection med 09/18/21 [History Last Taken Unknown] carvedilol 25 mg tablet 25 mg PO BID 12/26/21 [History Last Taken Unknown] cholecalciferol (vitamin D3) 25 mcg (1,000 unit) capsule (Vitamin D3) 50 mcg PO QWEEK 12/26/21 [History Last Taken Unknown] gabapentin 100 mg tablet 100 mg PO QHS 12/26/21 [History Last Taken Unknown] losartan 25 mg tablet tablet PO 09/05/22 [History Last Taken Unknown] sulfamethoxazole 400 mg-trimethoprim 80 mg tablet tablet PO 09/05/22 [History Last Taken Unknown] Allergy/AdvReac Type Severity Reaction Status Date / Time No Known Allergies Allergy Verified 10/18/22 09:18 Family History Mother Heart disease Hypertension Father Cancer Brother Cancer Diabetes Sister Diabetes Other Alcohol abuse Depression H/O transfusion of whole blood Kidney disease Surgical History History of appendectomy History of arteriovenostomy for renal dialysis (~08/2018) History of artificial lens replacement History of cholecystectomy History of eye surgery Kidney replaced by transplant Renal transplant recipient Status post insertion of dialysis catheter (~08/2018) Social History household members: spouse Smoking Status: Never smoker second hand exposure: No alcohol intake: never substance use type: does not use caffeine: No what type of physical activity do you participate in: none Physical Exam Narrative Patient alert oriented x3. Vascular: Dorsalis pedis posterior tibial pulses palpable 2 out of 4 to bilateral lower extremity. Diffuse edema to left forefoot secondary to cellulitis. Focal increase in warmth to that site. Neurologic: Light touch protective sensation absent to bilateral feet. Dermatologic: Full-thickness wound to lateral left forefoot probing down to fifth ray. The removed vesicle left fourth digit. Large bullous to third digit. Diffuse periwound erythema edema warmth and malodor. Some fluctuance noted to site. No evidence of crepitus. Musculoskeletal: Absent left fifth digit noted. Slight varus deformity of foot secondary to amputation. No other wound contributing deformity. Lab / Micro Data Result Diagrams: 11/01/22 09:49 11/01/22 09:49
[2022-11-01 10:12] LABS: Erythrocyte Sedimentation Rate 10 mm/hr (0-20)
[2022-11-01 10:15] LABS: Absolute Lymphocyte Count 1.35 X10^3/uL (0.83-4.51); Absolute Neutrophil Count 4.3 X10^3/uL (2.0-7.7); Basophil# 0.02 X10^3/uL; Basophil% 0.3 % (0-1); Eosinophil# 0.06 X10^3/uL; Eosinophils% 0.9 % (0-5); Hematocrit 49.7 % (40-54); Hemoglobin 15.9 g/dL (13.0-16.5); Lymphocyte # 1.35 X10^3/ul (0.83-4.51); Lymphocyte % 21.1 % (19-41); Mean Corpuscular Hgb 30.4 pg (27.0-32.0); Mean Platelet Vol. 9.9 fl (6.2-12.0); Monocyte# 0.62 X10^3/uL; Monocyte% 9.7 % (0-10); NRBC Flagged by Analyzer 0 % (0-5); Neutrophil # 4.33 X10^3/uL (2.7-7.7); Neutrophil % 67.5 % (47-70); Platelet Count 199 K/mm3 (150-450); RBC Distribution Width CV 12.7 % (11.6-14.6); RBC Distribution Width SD 44.9 fl (35.1-43.9); Red Blood Count 5.23 M/mm3 (4.6-6.2); White Blood Count 6.4 K/mm3 (4.4-11.0)
[2022-11-01 10:20] LABS: International Normalized Ratio 1.1; Prothrombin Time (Protime)PT. 13.4 SECONDS (11.7-14.9)
[2022-11-01 10:21] LABS: Partial Thromboplast Time 28.9 Seconds (24.1-36.2)
[2022-11-01] MEDS: 0.9% Normal Saline 1,000 ML 150 ML IV (10:24)
[2022-11-01 10:28] LABS: ALB/GLOB Ratio 0.9 RATIO (0.9-2.4); AST(SGOT) 23 U/L (15-37); Alanine Aminotransfer ALT/SGPT 41 U/L (16-61); Albumin, Serum 3.5 g/dL (3.2-5.0); Alkaline Phosphatase 156 U/L (45-117); Anion Gap 6 (5-15); BUN 37 mg/dL (7-18); BUN/Creat Ratio 22.7 RATIO (10-20); Calcium,Total 9.6 mg/dL (8.5-10.1); Chloride 108 mmol/L (98-107); Creatinine, Serum 1.63 mg/dL (0.70-1.30); EST Glomerular Filtration Rate 47 mL/min (>60); Est Glom Filt Rate - Afr Amer 57 mL/min (>60); Estimated Creatinine Clearance 50.71 ml/min; Globulin 3.7 g/dL (2.2-4.2); Glucose 266 mg/dL (74-106); Potassium 5.2 mmol/L (3.5-5.1); Protein, Total 7.2 g/dL (6.4-8.2); Sodium Level 139 mmol/L (136-145)
[2022-11-01 10:31] LABS: Lactic Acid 1.4 mmol/L (0.4-1.9)
--- NOTE | 2022-11-01 10:41 | PCM.HP.STD ---
HPI - General General Date of Admission: 11/01/22 Date of Service: 11/01/22 Chief Complaint: Left foot infection HPI Narrative ITALO BURGOS, is a 51 M who presents with a chronic left foot wound that is subsequently worsened over the past couple weeks.? Patient was seen by Dr. Medina in the wound care center today.? Patient noted to have an acute infection.? Patient noticed blistering increased drainage redness warmth and swelling to left foot.? At current patient denies any constitutional symptoms.? Patient denies any pain.? Patient has history of diabetes with significant neuropathy.? Patient has been treated for an acute gas infection in the past which required partial amputation of the fifth ray.? Patient consenting to transmetatarsal amputation today.? No other complaints. [facility] Medical History Acute hypoxemic respiratory failure Acute on chronic diastolic CHF (congestive heart failure) Acute respiratory failure with hypoxia ILDA (acute kidney injury) Anasarca associated with disorder of kidney Anemia of chronic renal failure, stage 4 (severe) Anxiety and depression Atherosclerotic heart disease of [place] coronary artery without angina pectoris Autonomic neuropathy Blind left eye Cellulitis and abscess of right leg Cellulitis of left lower limb Chewing tobacco nicotine dependence Chronic renal failure, stage 4 (severe) Chronic renal failure, stage 5 Chronic ulcer of 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 Congestive heart failure (CHF) COVID-19 COVID-19 Diabetes mellitus type II, uncontrolled Diabetic foot infection Diabetic foot ulcer Diabetic nephropathy Diabetic neuropathy Diabetic retinopathy Dyspnea Essential hypertension Fistula (~12/2018) Gas gangrene of foot GERD (gastroesophageal reflux disease) History of acute myocardial infarction History of left heart catheterization (LHC) (~06/26/11) HLD (hyperlipidemia) Hypertensive emergency Hypoglycemia Hypokalemia Hypoxemia Kidney failure Kidney stones Necrotizing fasciitis 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 exposed Noncompliance Obesity (BMI 30-39.9) Pneumonia Problem with dialysis access Pulmonary edema Respiratory failure Retention, urine Right leg pain 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 Vision problems Home Medications aspirin 81 mg chewable tablet 81 mg PO DAILY@0800 [facility] 08/21/18 [History Last Taken 10/06/19] insulin lispro 100 unit/mL subcutaneous pen See Protocol SQ ACHS blood sugar 10/06/19 [History Last Taken 10/06/19] insulin glargine 100 unit/mL (3 mL) subcutaneous pen 0 unit subcut QHS blood sugar 08/11/20 [History Last Taken Unknown] bupropion HCl 150 mg 24 hr tablet, extended release (Wellbutrin XL) 300 mg PO DAILY mood 09/18/21 [History Last Taken Unknown] docusate sodium 100 mg capsule (Colace) 100 mg PO DAILY constipation 09/18/21 [History Last Taken Unknown] pantoprazole 20 mg tablet,delayed release (Protonix) 20 mg PO DAILY gerd 09/18/21 [History Last Taken Unknown] prednisone 5 mg tablet 5 mg PO DAILY steroid 09/18/21 [History Last Taken Unknown] tacrolimus 1 mg tablet,extended release 24 hr (Envarsus XR) 1 mg PO DAILY rejection med 09/18/21 [History Last Taken Unknown] carvedilol 25 mg tablet 25 mg PO BID 12/26/21 [History Last Taken Unknown] cholecalciferol (vitamin D3) 25 mcg (1,000 unit) capsule (Vitamin D3) 50 mcg PO QWEEK 12/26/21 [History Last Taken Unknown] gabapentin 100 mg tablet 100 mg PO QHS 12/26/21 [History Last Taken Unknown] losartan 25 mg tablet tablet PO 09/05/22 [History Last Taken Unknown] sulfamethoxazole 400 mg-trimethoprim 80 mg tablet tablet PO 09/05/22 [History Last Taken Unknown] Allergy/AdvReac Type Severity Reaction Status Date / Time No Known Allergies Allergy Verified 10/18/22 09:18 Family History Mother Heart disease Hypertension Father Cancer Brother Cancer Diabetes Sister Diabetes Other Alcohol abuse Depression H/O transfusion of whole blood Kidney disease Surgical History History of appendectomy History of arteriovenostomy for renal dialysis (~08/2018) History of artificial lens replacement History of cholecystectomy History of eye surgery Kidney replaced by transplant Renal transplant recipient Status post insertion of dialysis catheter (~08/2018) Social History household members: spouse Smoking Status: Never smoker second hand exposure: No alcohol intake: never substance use type: does not use caffeine: No what type of physical activity do you participate in: none ROS Constitutional Constitutional: Denies chills, fever(s) or weight loss Eyes Eyes: Denies blurry vision, change in vision or diplopia ENT HEENT: Denies ear pain, rhinorrhea or sore throat Cardiovascular Cardiovascular: Denies chest pain, orthopnea, palpitations, paroxysmal nocturnal dyspnea or racing heartbeat Respiratory/Chest Respiratory/Chest: Denies cough, dyspnea or dyspnea on exertion Gastrointestinal Gastrointestinal: Denies abdominal pain, constipation, diarrhea, melena, nausea or vomiting Genitourinary Genitourinary: Denies dysuria, hematuria or urinary frequency Musculoskeletal Musculoskeletal: Reports other Details: Diabetic foot infection ; Denies arthralgias, back pain, myalgias or neck pain Neurologic Neurologic: Reports other Details: Patient states he has no sensation in his feet due to diabetic neuropathy. ; Denies headache(s), paresthesias or weakness Psychiatric Psychiatric: Reports depression Endocrine Endocrinology: Reports polydipsia and polyuria; Denies cold intolerance or heat intolerance Hematologic/Lymphatic Hematologic/Lymphatic: Reports systems reviewed and no addt'l complaints, except as documented Vital Signs Vital Signs Vital Signs: 11/01/22 09:23 11/01/22 09:42 11/01/22 09:48 Temperature 97.6 F L 97.6 F L Temperature Source Temporal Temporal Pulse Rate 89 89 Respiratory Rate 16 16 Blood Pressure 166/79 H 166/79 H Blood Pressure Mean 108 108 Blood Pressure Source Blood Pressure Position Blood Pressure Location Pulse Ox 97 98 Oxygen Delivery Method Room Air Room Air Room Air 11/01/22 10:26 Temperature Temperature Source Oral Pulse Rate 81 Respiratory Rate 16 Blood Pressure Blood Pressure Mean Blood Pressure Source Monitor Blood Pressure Position Sitting Blood Pressure Location Left Arm Pulse Ox 96 Oxygen Delivery Method Room Air Weight Weight: 239.6 kg Body Mass Index (BMI) 80.3 Physical Exam Narrative Patient alert oriented x3. Vascular: Dorsalis pedis posterior tibial pulses palpable 2 out of 4 to bilateral lower extremity. Diffuse edema to left forefoot secondary to cellulitis. Focal increase in warmth to that site. Neurologic: Light touch protective sensation absent to bilateral feet. Dermatologic: Full-thickness wound to lateral left forefoot probing down to fifth ray. The removed vesicle left fourth digit. Large bullous to third digit. Diffuse periwound erythema edema warmth and malodor. Some fluctuance noted to site. No evidence of crepitus. Musculoskeletal: Absent left fifth digit noted. Slight varus deformity of foot secondary to amputation. No other wound contributing deformity. Results Lab / Micro Data Result Diagrams: 11/01/22 09:49 11/01/22 09:49 Labs: Laboratory Results - last 24 hr 11/01/22 09:49: WBC 6.4, RBC 5.23, Hgb 15.9, Hct 49.7, MCV 95.0 H, MCH 30.4, MCHC 32.0, RDW Std Deviation 44.9 H, RDW Coeff of Tomy 12.7, Plt Count 199, MPV 9.9, Immature Gran % (Auto) 0.500, Neut % (Auto) 67.5, Lymph % (Auto) 21.1, [place] % (Auto) 9.7, Eos % (Auto) 0.9, Baso % (Auto) 0.3, Absolute Neuts (auto) 4.3, Absolute Lymphs (auto) 1.35, Nucleated RBC % 0, ESR 10 11/01/22 09:49: PT 13.4, INR 1.1, APTT 28.9 11/01/22 09:49: Sodium 139, Potassium 5.2 H, Chloride 108 H, Carbon Dioxide 25.0, Anion Gap 6, BUN 37 H, Creatinine 1.63 H, Estim Creat Clear Calc 50.71, Est GFR (MDRD) Af Amer 57 L, Est GFR (MDRD) Non-Af 47 L, BUN/Creatinine Ratio 22.7 H, Glucose 266 H, Calcium 9.6, Total Bilirubin 0.50, AST 23, ALT 41, Alkaline Phosphatase 156 H, C-React Prot Ext Range 10.80 H, Total Protein 7.2, Albumin 3.5, Globulin 3.7, Albumin/Globulin Ratio 0.9 11/01/22 09:49: Lactic Acid 1.4 Radiology Impression Foot X-Ray 11/01/22 09:42 IMPRESSION: Status post resection of the distal portion of the fifth metatarsal as well as the fifth toe. Partial resection of the distal aspect of the fourth metatarsal and proximal base of the fourth toe. Diffuse soft tissue swelling. Findings suggestive of a an ulceration overlying the distal aspect of the fourth metatarsal. Vascular calcification. Electronically Signed: Tristan France MD at 10:25 EST , Chest X-Ray 11/01/22 10:05 IMPRESSION: Cardiomegaly. The lungs are clear. Electronically Signed: Tristan France MD at 10:30 EST , Assessment & Plan Assessment/Plan (1) Diabetic infection of left foot: PLAN: Exam performed. Radiographs suggestive of abscess to left foot. No evidence of acute gas infection. Patient vitally stable, inflammatory labs pending. Patient received vancomycin and Zosyn in ER. Patient has not eaten yet today. Patient has history of gas infection left foot requiring left partial ray resection. Patient has failed to heal his wounds over the past year. Over the past couple weeks his wounds have worsened and there is noted to be a acute abscess in the wound care center today. At this time I recommend urgent left transmetatarsal amputation. Chest x-ray EKG pending. Currently on OR schedule at 12 PM. Discussed and patient risks and benefits of performing left transmetatarsal amputation. Due to chronic foot wound nonhealing over the past year is recommended patient to proceed with transmetatarsal amputation for 1 infection clearance purposes and for 2 a balance functional amputation with low risk of reulceration. Discussed with patient performing this urgently as patient has acute infection to left lower extremity and attempt to clear this infection and limit the systemic effects we will plan for transmetatarsal amputation today. Patient in agreement at this time. Recommend infectious disease consult. Patient to be admitted with hospitalist on board. We will follow closely while in house. (2) Abscess of left foot: (3) Cellulitis of foot, left: (4) Type 2 diabetes mellitus with diabetic polyneuropathy: (5) Non-pressure chronic ulcer of other part of left foot with necrosis of bone:
--- NOTE | 2022-11-01 10:43 | HP.PCM.HOS_ITS ---
[facility] - General General Date of Service: 11/01/22 Chief Complaint: Left foot infection HPI Narrative ITALO BUGROS, is a 51 M with a PMH as outlined who presents via e ED on 11/01/2022 with a complaitn of left third and fourth toe infection. HE follows with podiatry and wound clinic for osteomyeltis of left foot as well as diabetic foot ulcer of hte left foot. 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 He has been following up at Wound care but the wound has not been healing well. He noted that he had redness and swelling of the left 3rd and 4th toes 2 days prior to admission. He denied any fever, chills or any discharge from the foot. He also complained of pain in his foot with walking a bit of a distance, ~ 1-2 blocks. Review of ssyems was otherwise negative Vitals in the ED were CO of 81, RR of 16 and oxygen sats of 96% on room air. Temp was 97.6F. CBC was unremarkable. BMP was significant for potassium of 5.2 and Cr of 1.63. CRP was 10.8. CXR showed cardiomegaly. but no acute cardiopulmonary process. Foot xarey showed diffuse soft tissue swelling and findings suggestive of ulceration overlying overlying the distal aspect of hte 4th metatarsal.Podiatry evaluated patient and he is going to be sent to the OR today. [facility] Medical History Acute hypoxemic respiratory failure Acute on chronic diastolic CHF (congestive heart failure) Acute respiratory failure with hypoxia ILDA (acute kidney injury) Anasarca associated with disorder of kidney Anemia of chronic renal failure, stage 4 (severe) Anxiety and depression Atherosclerotic heart disease of [place] coronary artery without angina pectoris Autonomic neuropathy Blind left eye Cellulitis and abscess of right leg Cellulitis of left lower limb Chewing tobacco nicotine dependence Chronic renal failure, stage 4 (severe) Chronic renal failure, stage 5 Chronic ulcer of 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 Congestive heart failure (CHF) COVID-19 COVID-19 Diabetes mellitus type II, uncontrolled Diabetic foot infection Diabetic foot ulcer Diabetic nephropathy Diabetic neuropathy Diabetic retinopathy Dyspnea Essential hypertension Fistula (~12/2018) Gas gangrene of foot GERD (gastroesophageal reflux disease) History of acute myocardial infarction History of left heart catheterization (LHC) (~06/26/11) HLD (hyperlipidemia) Hypertensive emergency Hypoglycemia Hypokalemia Hypoxemia Kidney failure Kidney stones Necrotizing fasciitis 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 exposed Noncompliance Obesity (BMI 30-39.9) Pneumonia Problem with dialysis access Pulmonary edema Respiratory failure Retention, urine Right leg pain 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 Vision problems Home Medications insulin lispro 100 unit/mL subcutaneous pen 16 - 20 unit SQ ACHS blood sugar 10/06/19 [History Last Taken 10/31/22] insulin glargine 100 unit/mL (3 mL) subcutaneous pen 44 unit subcut QHS blood sugar 08/11/20 [History Last Taken 10/31/22] docusate sodium 100 mg capsule (Colace) 100 mg PO DAILY constipation 09/18/21 [History Last Taken 10/28/22] pantoprazole 20 mg tablet,delayed release (Protonix) 20 mg PO DAILY gerd 09/18/21 [History Last Taken 11/01/22 07:00] prednisone 5 mg tablet 5 mg PO DAILY steroid 09/18/21 [History Last Taken 11/01/22 07:00] tacrolimus 1 mg tablet,extended release 24 hr (Envarsus XR) 1 mg PO DAILY rejection med 09/18/21 [History Last Taken 11/01/22 07:00] carvedilol 25 mg tablet 25 mg PO BID HEART 12/26/21 [History Last Taken 11/01/22 07:00] cholecalciferol (vitamin D3) 25 mcg (1,000 unit) capsule (Vitamin D3) 50 mcg PO FR SUPPLEMENT' 12/26/21 [History Last Taken 10/26/22] losartan 25 mg tablet 25 mg PO DAILY BP 09/05/22 [History Last Taken 11/01/22 07:00] sulfamethoxazole 400 mg-trimethoprim 80 mg tablet 1 tablet PO DAILY INFECTION 09/05/22 [History Last Taken 11/01/22 07:00] acetaminophen 500 mg tablet 1,000 mg PO Q4H PRN Pain 11/01/22 [History Last Taken 10/31/22] aspirin 81 mg chewable tablet 81 mg PO DAILY HEALTH 11/01/22 [History Last Taken 11/01/22 07:00] bupropion HCl 300 mg 24 hr tablet, extended release 300 mg PO DAILY MOOD [History Last Taken 11/01/22 07:00] gabapentin 100 mg capsule 100 mg PO QHS NERVE PAIN 11/01/22 [History Last Taken 10/31/22] Allergy/AdvReac Type Severity Reaction Status Date / Time No Known Allergies Allergy Verified 10/18/22 09:18 Family History Mother Heart disease Hypertension Father Cancer Brother Cancer Diabetes Sister Diabetes Other Alcohol abuse Depression H/O transfusion of whole blood Kidney disease Surgical History History of appendectomy History of arteriovenostomy for renal dialysis (~08/2018) History of artificial lens replacement History of cholecystectomy History of eye surgery Kidney replaced by transplant Renal transplant recipient Status post insertion of dialysis catheter (~08/2018) Social History household members: spouse Smoking Status: Never smoker second hand exposure: No alcohol intake: never substance use type: does not use caffeine: No what type of physical activity do you participate in: none ROS Constitutional Constitutional: Denies anorexia, chills, fatigue, fever(s) or weakness Eyes Eyes: Denies change in vision ENT HEENT: Denies ear pain, headache(s), sinus pressure or sore throat Cardiovascular Cardiovascular: Denies chest pain, dyspnea on exertion, edema, lightheadedness, orthopnea, palpitations, paroxysmal nocturnal dyspnea, rapid heart rate or syncope Respiratory/Chest Respiratory/Chest: Denies cough, dyspnea, productive cough, shortness of breath at rest or shortness of breath with exertion Gastrointestinal Gastrointestinal: Denies abdominal pain, constipation, diarrhea, nausea or vomiting Genitourinary Genitourinary: Denies burning urination or dysuria Musculoskeletal Musculoskeletal: Denies arthralgias or back pain Neurologic Neurologic: Denies abnormal gait, confusion, dizziness or focal weakness Psychiatric Psychiatric: Denies anxiety Endocrine Endocrinology: Denies change in body appearance Hematologic/Lymphatic Hematologic/Lymphatic: Denies anemia Vital Signs Vital Signs Vital Signs: 11/01/22 09:23 11/01/22 09:42 11/01/22 09:48 Temperature 97.6 F L 97.6 F L Temperature Source Temporal Temporal Pulse Rate 89 89 Respiratory Rate 16 16 Blood Pressure 166/79 H 166/79 H Blood Pressure Mean 108 108 Blood Pressure Source Blood Pressure Position Blood Pressure Location Pulse Ox 97 98 Oxygen Delivery Method Room Air Room Air Room Air 11/01/22 10:26 Temperature Temperature Source Oral Pulse Rate 81 Respiratory Rate 16 Blood Pressure Blood Pressure Mean Blood Pressure Source Monitor Blood Pressure Position Sitting Blood Pressure Location Left Arm Pulse Ox 96 Oxygen Delivery Method Room Air Weight Weight: 528 lb 3.641 oz Body Mass Index (BMI) 80.3 Physical Exam Const alert, oriented x3 and no apparent distress General Appearance: cooperative HEENT normocephalic, head/scalp atraumatic, hearing grossly normal bilaterally and moist oral mucous membranes Mouth: oral and palatal mucosa normal Eyes PERRL, EOMs intact bilaterally and conjunctivae normal Neck no lymphadenopathy and supple Resp normal respiratory effort, no retractions, no use of accessory muscles and clear to auscultation bilaterally Cardio regular rate, regular rhythm, S1 normal heart sound, S2 normal heart sound and no murmurs GI normal to inspection, nondistended, normoactive bowel sounds, soft to palpation, non-tender and non-distended Neuro Sensorium / Orientation: awake and alert Motor Exam: strength 5/5 throughout Results Lab / Micro Data Result Diagrams: 11/01/22 09:49 11/01/22 09:49 Labs: Laboratory Results - last 24 hr 11/01/22 09:49: WBC 6.4, RBC 5.23, Hgb 15.9, Hct 49.7, MCV 95.0 H, MCH 30.4, MCHC 32.0, RDW Std Deviation 44.9 H, RDW Coeff of Tomy 12.7, Plt Count 199, MPV 9.9, Immature Gran % (Auto) 0.500, Neut % (Auto) 67.5, Lymph % (Auto) 21.1, [place] % (Auto) 9.7, Eos % (Auto) 0.9, Baso % (Auto) 0.3, Absolute Neuts (auto) 4.3, Absolute Lymphs (auto) 1.35, Nucleated RBC % 0, ESR 10 11/01/22 09:49: PT 13.4, INR 1.1, APTT 28.9 11/01/22 09:49: Sodium 139, Potassium 5.2 H, Chloride 108 H, Carbon Dioxide 25.0, Anion Gap 6, BUN 37 H, Creatinine 1.63 H, Estim Creat Clear Calc 50.71, Est GFR (MDRD) Af Amer 57 L, Est GFR (MDRD) Non-Af 47 L, BUN/Creatinine Ratio 22.7 H, Glucose 266 H, Calcium 9.6, Total Bilirubin 0.50, AST 23, ALT 41, [place] line Phosphatase 156 H, C-React Prot Ext Range 10.80 H, Total Protein 7.2, Albumin 3.5, Globulin 3.7, Albumin/Globulin Ratio 0.9 11/01/22 09:49: Lactic Acid 1.4 Radiology Impression Foot X-Ray 11/01/22 09:42 IMPRESSION: Status post resection of the distal portion of the fifth metatarsal as well as the fifth toe. Partial resection of the distal aspect of the fourth metatarsal and proximal base of the fourth toe. Diffuse soft tissue swelling. Findings suggestive of a an ulceration overlying the distal aspect of the fourth metatarsal. Vascular calcification. Electronically Signed: Tristan France MD at 10:25 EST , Chest X-Ray 11/01/22 10:05 IMPRESSION: Cardiomegaly. The lungs are clear. Electronically Signed: Tristan France MD at 10:30 EST , Assessment & Plan Assessment/Plan (1) Type 2 diabetes mellitus with left diabetic foot infection: (2) Non-pressure chronic ulcer of other part of left foot with necrosis of bone:
[2022-11-01 11:00] LABS: Bedside Glucose 264 mg/dL (74-106)
--- NOTE | 2022-11-01 11:04 | PN.HOSP_ITS ---
Reason for Visit Reason for Visit: Diagnoses Type 2 diabetes mellitus with diabetic polyneuropathy (11/01/22) Type 2 diabetes mellitus with other skin complications (11/01/22) Cutaneous abscess of left foot (11/01/22) Cellulitis of left lower limb (11/01/22) Local infection of the skin and subcutaneous tissue, unspecified (11/01/22) Non-pressure chronic ulcer of other part of left foot with necrosis of bone (11/01/22) Subjective Subjective ITALO BURGOS, is a 51 M with a PMH as outlined who presents via [facility] ED on 11/01/2022 with a complaitn of left third and fourth toe infection. HE follows with podiatry and wound clinic for osteomyeltis of left foot as well as diabetic foot ulcer of hte left foot. 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 He has been following up at Wound care but the wound has not been healing well. He noted that he had redness and swelling of the left 3rd and 4th toes 2 days prior to admission. He denied any fever, chills or any discharge from the foot. He also complained of pain in his foot with walking a bit of a distance, ~ 1-2 blocks. Review of ssyems was otherwise negative Vitals in the ED were DC of 81, RR of 16 and oxygen sats of 96% on room air. Temp was 97.6F. CBC was unremarkable. BMP was significant for potassium of 5.2 and Cr of 1.63. CRP was 10.8. CXR showed cardiomegaly. but no acute cardiopulmonary process. Foot xarey showed diffuse soft tissue swelling and findings suggestive of ulceration overlying overlying the distal aspect of hte 4th metatarsal.Podiatry evaluated patient and he was taken to the OR where he had left transmetatarsal amputation> Hospitalist service was consulted for medical management. Objective Data Objective Data Vital Signs: Vital Signs Temp Pulse Resp BP Pulse Ox O2 Del Method 97.6 F L 81 16 166/79 H 96 Room Air 11/01/22 09:42 11/01/22 10:26 11/01/22 10:26 11/01/22 09:42 11/01/22 10:26 11/01/22 10:26 Oxygen Delivery Method Room Air Weight: 528 lb 3.641 oz Body Mass Index (BMI) 80.3 Lab / Micro Data Result Diagrams: 11/01/22 09:49 11/01/22 09:49 Labs: Laboratory Results - last 24 hr 11/01/22 09:49: WBC 6.4, RBC 5.23, Hgb 15.9, Hct 49.7, MCV 95.0 H, MCH 30.4, MCHC 32.0, RDW Std Deviation 44.9 H, RDW Coeff of Tomy 12.7, Plt Count 199, MPV 9.9, Immature Gran % (Auto) 0.500, Neut % (Auto) 67.5, Lymph % (Auto) 21.1, Rapides % (Auto) 9.7, Eos % (Auto) 0.9, Baso % (Auto) 0.3, Absolute Neuts (auto) 4.3, Absolute Lymphs (auto) 1.35, Nucleated RBC % 0, ESR 10 11/01/22 09:49: PT 13.4, INR 1.1, APTT 28.9 11/01/22 09:49: Sodium 139, Potassium 5.2 H, Chloride 108 H, Carbon Dioxide 25.0, Anion Gap 6, BUN 37 H, Creatinine 1.63 H, Estim Creat Clear Calc 50.71, Est GFR (MDRD) Af Amer 57 L, Est GFR (MDRD) Non-Af 47 L, BUN/Creatinine Ratio 22.7 H, Glucose 266 H, Calcium 9.6, Total Bilirubin 0.50, AST 23, ALT 41, Alkaline Phosphatase 156 H, C-React Prot Ext Range 10.80 H, Total Protein 7.2, Albumin 3.5, Globulin 3.7, Albumin/Globulin Ratio 0.9 11/01/22 09:49: Lactic Acid 1.4 11/01/22 10:39: POC Glucose 264 H Radiography Diagnostic Testing: Radiology Impression Foot X-Ray 11/01/22 09:42 IMPRESSION: Status post resection of the distal portion of the fifth metatarsal as well as the fifth toe. Partial resection of the distal aspect of the fourth metatarsal and proximal base of the fourth toe. Diffuse soft tissue swelling. Findings suggestive of a an ulceration overlying the distal aspect of the fourth metatarsal. Vascular calcification. Electronically Signed: Tristan France MD at 10:25 EST , Chest X-Ray 11/01/22 10:05 IMPRESSION: Cardiomegaly. The lungs are clear. Electronically Signed: Tristan France MD at 10:30 EST , Physical Exam Const alert, oriented x3 and no apparent distress HEENT head/scalp atraumatic, moist oral mucous membranes and oropharynx normal Head and Scalp: normocephalic Mouth: oral and palatal mucosa normal Neck no lymphadenopathy and supple Resp normal respiratory effort, no retractions, no use of accessory muscles and clear to auscultation bilaterally Cardio regular rate, regular rhythm, S1 normal heart sound and S2 normal heart sound GI normal to inspection, nondistended, normoactive bowel sounds, soft to palpation, non-tender and non-distended Extremity Extremity Narrative: left foot wrapped in bandage Neuro oriented x3, CN's II-XII intact bilaterally, moves all extremities and no focal motor deficits Sensorium / Orientation: awake and alert Motor Exam: strength 5/5 throughout Psych affect normal Assessment & Plan Assessment/Plan (1) Osteomyelitis of foot, left, acute: (2) Type 2 diabetes mellitus with left diabetic foot infection: PLAN: Plan #Left foot Diabetic foot infection * S/p left transmetatarsal amputation. Today's postop day 0. * Management as per primary team podiatry. 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 Insulin sliding scale. Accu-Cheks ACHS. * #Hypertension: On losartan #Hyperlipidemia: On statin #ESRD: Has a history of renal transplant. On mycophenolate and Envarsus as well as prednisone. Will trend creatinine. #Depression: On Wellbutrin #DVT prophylaxis: As per primary team Thank you for the courtesy of the consult. We will continue to follow with you. Total time spent seeing patient and examining [id number], review of chart, reviewing specialist notes, discussion of plan of care with patient and ancillary staff as well as documentation in EMR: 45 minutes. Charges/Coding Visit Charges Inpatient E&M: 79009 Subs Hosp L3
--- NOTE | 2022-11-01 11:52 | RAD_ITS ---
STUDY: X-RAY - LEFT FOOT CLINICAL: Male, 51 years old. AMPUTATION TECHNIQUE: 1 view(s) of the foot. COMPARISON: None. FINDINGS: Intraoperative images provided for transmetatarsal amputation. RAD/Foot 2 Views IMPRESSION: Intraoperative images provided for transmetatarsal amputation. Electronically Signed: Tristan France MD at 15:14 EST ,
--- NOTE | 2022-11-01 12:00 | BON_PTH ---
PATIENT: ITALO BURGOS LOC: MS3 U#:[id number] AGE/SX: 51/M ROOM: [facility] RE11/01/[address]: Dr. Mayo Levy DPM : 1970 BED: 1 DIS: 11/05/2022 SPEC #: [id number] RECD: 11/01/22 13:50 STATUS: ZACHARY REQ #: [id number] MARILYN: 11/01/22 12:[address]: Mayo Levy DEPT: SURGICAL PATHOLOGY RECD BY: Tessy Gustafson ENTERED: 11/02/22 07:41 SP TYPE: Bone OTHR DR: MD Dr. Zaida Pabon Dr., MD Dr. Douglas R Brown, DO Dr. Efewongbe Oleghe, MD Dr. Loren Kirchner, MD Dr. Robert Leininger, MD Barbara Tickton, XEROX MACHINE ASSEMBLER-C John Funes, XEROX MACHINE ASSEMBLER-C AJ Julio Tissues: A - Foot, NOS B - Toe, NOS Procedures: Decalcification bone/plaque Surgery Specimen Level IV HEADER OPERATION: Foot transmetatarsal amputation PRE-OP DIAGNOSIS: Diabetic infection of left foot; abscess and cellulitis of left foot TISSUE SUBMITTED: A ? Left forefoot, B ? Left metatarsals MICROSCOPIC DIAGNOSIS A. Left forefoot, amputation: Focal ulceration, necrosis and associated acute inflammation. Bone with reactive changes and chronic inflammation. Negative for acute osteomyelitis. B. Left foot metatarsal: Skin and tendinous tissue with reactive changes. Bone with chronic inflammation and reactive changes, negative for acute osteomyelitis. SJ:sai 11/07/2022 MICROSCOPIC DESCRIPTION Slides are reviewed. GROSS DESCRIPTION A - Received in fixative is one container labeled with the patient's name and designated left forefoot. The specimen consists of a portion of foot containing great toe and second toe measuring 7.0 x 6.0 x 3.0 cm. The lateral surface of second toe shows focal area of redness. Also present in the container is a detached toe measuring 6.0 x 3.0 x 3.0 cm. The dorsal plantar surface of the toe shows ulceration and brownish-black area of necrosis. The proximal portion also shows focal area of ulceration. The ulcerated area measures 1.5 cm in greatest dimension and area of necrosis measures 2.0 x 2.0 x 1.5 cm. The nail appears atrophic. Psychiatric Nurse sections are submitted in four cassettes as follows: 1 & 2 - ulcerated and necrotic area from the detached toe, 3 & 4 - bone after decalcification from the detached toe. B - Received in fixative is one container labeled with the patient's name and designated left foot metatarsal. The specimen consists of multiple irregular fragments of bone that in aggregate measure 9.0?x 7.0 x 2.5 cm. Also present in the container is a piece of skin and tendinous tissue measuring in aggregate 5.0 x 1.5 x 0.5 cm. Psychiatric Nurse sections are submitted in six cassettes as follows: 1??skin and tendinous tissue, 2-6 - bone after decalcification. / RCUZ:sai 11/02/2022 TC:2 CPT: 83885 x2, 61863 x2
[2022-11-01] MEDS: BACITRACIN/POLYMYXIN B 15 GM Tube 1 APPLIC (13:59)
[2022-11-01] MEDS: Bupivacaine 0.5% PF 10 ML VIAL (14:00)
[2022-11-01] MEDS: Lactated Ringers 1,000 ML 15 ML IV ×2 (14:00→14:55)
--- NOTE | 2022-11-01 14:06 | PCM.OPRPT ---
Problems Associated Problem List Diagnoses (1) Type 2 diabetes mellitus with left diabetic foot infection: (2) Non-pressure chronic ulcer of other part of left foot with necrosis of bone: (3) Type 2 diabetes mellitus with diabetic polyneuropathy: (4) Osteomyelitis of foot, left, acute: Report of Operation Date of Procedure: 11/01/22 Pre-Operative Diagnosis: 1) Left foot Osteomyelitis in setting of diabetic neuropathy (limited to forefoot) Post-Operative Diagnosis: Same Surgery/Procedure Performed:: Left transmetatarsal amputation Description of Surgical Findings:: Status post left transmetatarsal amputation residual tissue appears devoid of deep infection. Healthy bleeding noted to transmetatarsal amputation suggestive of good healing potential. Surgeon: Mayo Levy private inquiry agent: None (Alton Stinson, YIII) Type of Anesthesia: General Special Medications: 30cc 0.5% marcaine plain Specimen's removed: left forefoot for bone/tissue culture left forefoot for bone/tissue pathology Left metatarsals for bone pathology Left foot post lavage swab culture Drains: none Estimated Blood Loss (mL): 40cc Description of Procedure: Patient was brought back the operating placed comfortably in supine position on the operating room table. Patient induced under general anesthesia. All osseous prominences offloaded prevent any compression neuropraxia. Left thigh tourniquet applied with adequate cushioning. Left lower extremity was bumped to knock out any external rotation. Left lower extremity was scrubbed prepped and draped and draped using typical aseptic fashion. Once cleared by anesthesia left lower extremity was elevated exsanguinated tourniquet was inflated to 300 mmHg. A fishmouth incision was drawn along the dorsal foot maintaining healthy skin dorsally and plantarly for adequate soft tissue flaps. These incisions were made using a #15 blade through the level epidermis dermis and subcutaneous tissue down to the level of bone. At this time any bleeders were identified and cauterized. It a dorsal and plantar flap was made to allow for adequate closure status post resection of metatarsals. Initially deep dissection was taken down to the level of the metatarsal phalangeal joints and digits 1 through 4 were removed after disarticulation the left third digit was sent for bone and tissue culture. The remaining digits were sent for bone and tissue pathology. Once dorsal and plantar flaps were created and we had adequate soft tissue coverage the metatarsals were resected maintaining the normal metatarsal parabola. This was confirmed using fluoroscopic imaging and intraoperative visualization. Once this was performed the site was flushed with copious amounts of normal sterile saline using low-pressure pulse lavage. Was metatarsals were sent for pathology. Post lavage swab cultures were taken. Tourniquet was let down any additional bleeders were cauterized at this time. Closure was performed with 2-0 Vicryl to deep and subcutaneous layers using simple interrupted technique. Skin closure was performed using 3-0 Prolene using simple interrupted technique. Adequate hemostasis was noted. Should be noted that the tourniquet was deflated prior to incisional closure and total tourniquet time was 33 mmHg. Prior to his initial skin incision 30 cc half percent Marcaine plain were used an ankle block using standard technique. Incision was dressed with bacitracin Adaptic 4 x 4's Kerlix ABD pads and Kirill bandage for some light compression. Patient will be transferred back to floor early continue to receive IV antibiotics. Infectious disease hospitalist on consult. Upon discharge patient may tolerate oral antibiotics well pending final cultures and infectious disease recommendations. Patient will maintain nonweightbearing status we will follow patient closely. Patient tolerated procedure and anesthesia well apparent satisfactory condition. Patient was transferred to PACU vital signs stable and vascular status intact. Complications None Admit VTE Documentation VTE Present on Admission: Yes
[2022-11-01 15:01] LABS: Bedside Glucose 222 mg/dL (74-106)
[2022-11-01] MEDS: Insulin Lispro 100 UNIT/ML INSULN.PEN SC (18:45)
[2022-11-01] MEDS: Carvedilol 25 MG Tablet PO (20:25)
[2022-11-01] MEDS: Heparin Injection (Vial) 5,000 UNIT/ML VIAL 5000 UNIT SC (20:25)
[2022-11-01] MEDS: Gabapentin 100 MG Capsule PO (20:27)
[2022-11-01 20:56] LABS: Bedside Glucose 372 mg/dL (74-106)
[2022-11-02 02:06] VITALS: O2SAT 71
--- NOTE | 2022-11-02 02:06 | NURSING ---
Pt was sleeping. po drop to 71% on ra. pt awaken up and 02 at 2lnc reapplied then came up to 97% w 02
[2022-11-02 05:43] VITALS: BP 158/81; PULSE 90; RESP 16; TEMP 36.7; O2SAT 100
[2022-11-02 05:52] LABS: Absolute Lymphocyte Count 0.99 X10^3/uL (0.83-4.51); Absolute Neutrophil Count 8.9 X10^3/uL (2.0-7.7); Basophil# 0.01 X10^3/uL; Basophil% 0.1 % (0-1); Hematocrit 47.5 % (40-54); Hemoglobin 15.6 g/dL (13.0-16.5); Lymphocyte # 0.99 X10^3/ul (0.83-4.51); Lymphocyte % 9.3 % (19-41); Mean Corp Hgb Conc 32.8 g/dL (32-36); Mean Corpuscular Hgb 30.6 pg (27.0-32.0); Mean Corpuscular Volume 93.3 fL (80-94); Mean Platelet Vol. 10.5 fl (6.2-12.0); Monocyte% 7.5 % (0-10); NRBC Flagged by Analyzer 0 % (0-5); Neutrophil # 8.85 X10^3/uL (2.7-7.7); Neutrophil % 82.7 % (47-70); Platelet Count 179 K/mm3 (150-450); RBC Distribution Width CV 12.7 % (11.6-14.6); RBC Distribution Width SD 43.4 fl (35.1-43.9); Red Blood Count 5.09 M/mm3 (4.6-6.2); White Blood Count 10.7 K/mm3 (4.4-11.0)
[2022-11-02 06:21] LABS: Anion Gap 5 (5-15); BUN 37 mg/dL (7-18); Calcium,Total 9.3 mg/dL (8.5-10.1); Chloride 110 mmol/L (98-107); Creatinine, Serum 1.48 mg/dL (0.70-1.30); EST Glomerular Filtration Rate 53 mL/min (>60); Est Glom Filt Rate - Afr Amer 64 mL/min (>60); Estimated Creatinine Clearance 55.84 ml/min; Glucose 251 mg/dL (74-106); Potassium 4.9 mmol/L (3.5-5.1); Sodium Level 137 mmol/L (136-145)
--- NOTE | 2022-11-02 06:29 | PCM.HOSP.N ---
Hospitalist Note Bld Cx with GPC in clusters. Will start IV Vancomycin.
--- NOTE | 2022-11-02 06:54 | PCM.PROGNOTE ---
Subjective Subjective Patient was seen this morning for follow up on TMA. Patient afebrile, WBC normal. Bld Cx with GPC in clusters- IV Vancomycin has been started. Objective Data Objective Data Vital Signs: Vital Signs Temp Pulse Resp BP Pulse Ox O2 Del Method O2 Flow Rate 98.0 F 90 16 158/81 H 100 Room Air 2 11/02/22 05:43 11/02/22 05:43 11/02/22 05:43 11/02/22 05:43 11/02/22 05:43 11/02/22 05:43 11/01/22 17:43 Oxygen Flow Rate (L/min) 2 Oxygen Delivery Method Room Air Weight: 108.409 kg Body Mass Index (BMI) 80.3 Intake & Output: Intake and Output for Last 24 Hours 10/31/22 11/01/22 11/02/22 23:59 23:59 23:59 Intake Total 2490.75 / 2490.75 400 / 400 Output Total 700 / 700 Balance 1790.75 / 1790.75 400 / 400 Lab / Micro Data Result Diagrams: 11/02/22 04:29 11/02/22 04:29 Labs: Laboratory Results - last 24 hr 11/01/22 09:49: WBC 6.4, RBC 5.23, Hgb 15.9, Hct 49.7, MCV 95.0 H, MCH 30.4, MCHC 32.0, RDW Std Deviation 44.9 H, RDW Coeff of Tomy 12.7, Plt Count 199, MPV 9.9, Immature Gran % (Auto) 0.500, Neut % (Auto) 67.5, Lymph % (Auto) 21.1, Bonner % (Auto) 9.7, Eos % (Auto) 0.9, Baso % (Auto) 0.3, Absolute Neuts (auto) 4.3, Absolute Lymphs (auto) 1.35, Nucleated RBC % 0, ESR 10 11/01/22 09:49: PT 13.4, INR 1.1, APTT 28.9 11/01/22 09:49: Sodium 139, Potassium 5.2 H, Chloride 108 H, Carbon Dioxide 25.0, Anion Gap 6, BUN 37 H, Creatinine 1.63 H, Estim Creat Clear Calc 50.71, Est GFR (MDRD) Af Amer 57 L, Est GFR (MDRD) Non-Af 47 L, BUN/Creatinine Ratio 22.7 H, Glucose 266 H, Calcium 9.6, Total Bilirubin 0.50, AST 23, ALT 41, Alkaline Phosphatase 156 H, C-React Prot Ext Range 10.80 H, Total Protein 7.2, Albumin 3.5, Globulin 3.7, Albumin/Globulin Ratio 0.9 11/01/22 09:49: Lactic Acid 1.4 11/01/22 10:39: POC Glucose 264 H 11/01/22 14:40: POC Glucose 222 H 11/01/22 20:17: POC Glucose 372 H 11/02/22 04:29: WBC 10.7, RBC 5.09, Hgb 15.6, Hct 47.5, MCV 93.3, MCH 30.6, MCHC 32.8, RDW Std Deviation 43.4, RDW Coeff of Tomy 12.7, Plt Count 179, MPV 10.5, Immature Gran % (Auto) 0.400, Neut % (Auto) 82.7 H, Lymph % (Auto) 9.3 L, Bonner % (Auto) 7.5, Eos % (Auto) 0.0, Baso % (Auto) 0.1, Absolute Neuts (auto) 8.9 H, Absolute Lymphs (auto) 0.99, Nucleated RBC % 0 11/02/22 04:29: Sodium 137, Potassium 4.9, Chloride 110 H, Carbon Dioxide 22.0, Anion Gap 5, BUN 37 H, Creatinine 1.48 H, Estim Creat Clear Calc 55.84, Est GFR (MDRD) Af Amer 64, Est GFR (MDRD) Non-Af 53 L, BUN/Creatinine Ratio 25.0 H, Glucose 251 H, Calcium 9.3, C-React Prot Ext Range 13.70 H Micro: Microbiology 11/01/22 09:49 Blood Culture (Wb) - Anticubital Left Blood Culture - Preliminary 11/01/22 11:30 Nasal Secretion SARS-CoV-2 Antigen (Rapid) - Final Radiography Diagnostic Testing: Radiology Impression Foot X-Ray 11/01/22 09:42 IMPRESSION: Status post resection of the distal portion of the fifth metatarsal as well as the fifth toe. Partial resection of the distal aspect of the fourth metatarsal and proximal base of the fourth toe. Diffuse soft tissue swelling. Findings suggestive of a an ulceration overlying the distal aspect of the fourth metatarsal. Vascular calcification. Electronically Signed: Tristan France MD at 10:25 EST , Chest X-Ray 11/01/22 10:05 IMPRESSION: Cardiomegaly. The lungs are clear. Electronically Signed: Tristan France MD at 10:30 EST , Foot X-Ray 11/01/22 11:52 IMPRESSION: Intraoperative images provided for transmetatarsal amputation. Electronically Signed: Tristan France MD at 15:14 EST , Physical Exam Narrative Patient alert oriented x3. Vascular: Dorsalis pedis posterior tibial pulses palpable 2 out of 4 to bilateral lower extremity. Diffuse edema to left forefoot. Neurologic: Light touch protective sensation absent to foot. Dermatologic: Left foot s/p TMA with sutures intact, no dehiscence - minimal to no erythema, overall bleeding controlled. No visible abscess, on fluctuance, no crepitus, no necrosis. Musculoskeletal: s/p TMA in good position. No evidence of compartment syndrome. Assessment & Plan Assessment/Plan (1) Type 2 diabetes mellitus with left diabetic foot infection: (2) Non-pressure chronic ulcer of other part of left foot with necrosis of bone: (3) Type 2 diabetes mellitus with diabetic polyneuropathy: (4) Osteomyelitis of foot, left, acute: PLAN: Plan s/p left foot TMA on 11/01/22- site looks great. Bld Cx with GPC in clusters - Vancomycin has been started. Continue to follow cultures. ID service has been consulted. Changed dressing - betadine soaked adaptic, 4x4 gauze, kerlix, abd pads and arielle. Keep clean, dry and intact. No weightbearing left foot. Keep left foot elevated. Hospital medicine on consult - appreciate assistance. D/c home once final antibiotics determined.
[2022-11-02 07:10] LABS: Bedside Glucose 211 mg/dL (74-106)
[2022-11-02 07:56] VITALS: BP 142/73; PULSE 80; RESP 18; TEMP 36.7; O2SAT 97
[2022-11-02] MEDS: predniSONE 5 MG Tablet PO (08:04)
[2022-11-02] MEDS: Insulin Lispro 100 UNIT/ML INSULN.PEN SC ×3 (08:05→16:50)
--- NOTE | 2022-11-02 08:20 | WOUNDNOTE ---
wound photo: left foot
--- NOTE | 2022-11-02 08:20 | WOUNDNOTE ---
wound photo: left foot
--- NOTE | 2022-11-02 09:07 | PCM.RX.CS ---
Consult Pharmacy has been consulted to manage selected antiobiotic: Vancomycin Type of Consult: New start Suspected Infection: Other Prior Doses of Antibiotics Received/Current Regimen: received vanc 2000mg IV x1 in E.D. yesterday at 12:30 Labs: Sodium 137 mmol/L (136-145) 11/02/22 04:29 Potassium 4.9 mmol/L (3.5-5.1) 11/02/22 04:29 Chloride 110 mmol/L (98-107) H 11/02/22 04:29 Carbon Dioxide 22.0 mmol/L (21.0-32.0) 11/02/22 04:29 Anion Gap 5 (5-15) 11/02/22 04:29 BUN 37 mg/dL (7-18) H 11/02/22 04:29 Creatinine 1.48 mg/dL (0.70-1.30) H 11/02/22 04:29 Est GFR (MDRD) Af Amer 64 mL/min (>60) 11/02/22 04:29 Est GFR (MDRD) Non-Af 53 mL/min (>60) L 11/02/22 04:29 BUN/Creatinine Ratio 25.0 RATIO (10-20) H 11/02/22 04:29 Glucose 251 mg/dL (74-106) H 11/02/22 04:29 Microbiology: Microbiology 11/01/22 09:49 Blood Culture (Wb) - Anticubital Left Bacteria Detection (PCR) - Final Coag Negative Staph 11/01/22 09:49 Blood Culture (Wb) - Anticubital Left Blood Culture - Preliminary 11/01/22 11:30 Nasal Secretion SARS-CoV-2 Antigen (Rapid) - Final Weight used for dosin.4 kg Estimated Creatinine Clearance: 68.9ml/min Goal Trough: 15-20 mcg/mL Pharmacy Plan for Drug Dosing: Since the patient received a loading dose of 2000mg IV x1 yesterday less than 24 hours ago, will not load again today but will begin a scheduled maintenance dose of 1250mg IV q12h per [facility] dosing protocol. Will check a trough level before the 4th dose of 1250mg tomorrow night. The patient's CrCl of 68.9ml/min was calculated using an adjusted body weight. Pharmacy Service will continue to monitor and adjust dosing as required. Follow-Up Labs: Trough Vancomycin Labs to be done on [date and time ordered]: 11/03/22 19:30
[2022-11-02] MEDS: Heparin Injection (Vial) 5,000 UNIT/ML VIAL 5000 UNIT SC ×2 (10:45→22:00)
[2022-11-02] MEDS: Pantoprazole Sodium 20 MG Tablet PO (10:46)
[2022-11-02] MEDS: Cholecalciferol (VIT D3) 25 MCG TABLET (1,000 UNITS) 50 MCG PO (10:46)
[2022-11-02] MEDS: Carvedilol 25 MG Tablet PO ×2 (10:46→22:01)
[2022-11-02] MEDS: buPROPion (XL) 300 MG TABLET.XL PO (10:46)
[2022-11-02] MEDS: Docusate Sodium 100 MG Capsule PO (10:46)
[2022-11-02] MEDS: Losartan Potassium 25 MG Tablet PO (10:46)
[2022-11-02] MEDS: Tacrolimus Anhydrous 1 MG Capsule PO (10:47)
[2022-11-02] MEDS: Acetaminophen 325 MG Tablet 650 MG PO (10:53)
--- NOTE | 2022-11-02 11:23 | NURSING ---
per patient's meter glucose 331.
[2022-11-02] MEDS: Insulin Glargine-YFGN 100 UNIT/ML Pen 44 UNIT SC (11:24)
--- NOTE | 2022-11-02 11:49 | CON.PCM.ID_ITS ---
Assessment & Plan Assessment/Plan (1) Osteomyelitis of foot, left, acute: PLAN: Now s/p TMA 11/01/[address] Levy. 1 of 2 bcx with CoNS. Surg cx with gram pos growing so far. Wound cx 10/25/22 with MRSE and PsA. On vanc, will add zosyn for pseudomonas and anaerobic coverage. If margins are clear and other bcx remains neg, plan would be for po doxy 100mg bid and po cipro 500mg bid at discharge for 1-2 weeks. Will follow, thank you (2) Type 2 diabetes mellitus with diabetic polyneuropathy: (3) Renal transplant recipient: HPI Consult Data Date of Consult: 11/02/22 HPI Narrative Reason for Consultation: foot infection HPI Narrative: ITALO BURGOS, is a 51 M with renal transplant 2020, DM neuropathy, recurrent foot osteo, presented 11/01 with 2-3 days worsening L foot blistering then necrosis. No pain in foot, no fever or chills. Had been on recent course of doxy for foot infection, cx at wound center with MRSE and PsA on 10/25. L lateral toes with swelling, discoloration, drainage. Seen in wound center 11/01, sent to ED, had TMA done by Dr. Levy that day. Feeling ok this Am. Full ROS performed and neg except as noted above. FORMERLY [facility], [facility]–1983 Medical History Acute hypoxemic respiratory failure Acute on chronic diastolic CHF (congestive heart failure) Acute respiratory failure with hypoxia ILDA (acute kidney injury) Anasarca associated with disorder of kidney Anemia of chronic renal failure, stage 4 (severe) Anxiety and depression Atherosclerotic heart disease of [place] coronary artery without angina pectoris Autonomic neuropathy Blind left eye Cellulitis and abscess of right leg Cellulitis of left lower limb Chewing tobacco nicotine dependence Chronic renal failure, stage 4 (severe) Chronic renal failure, stage 5 Chronic ulcer of 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 Congestive heart failure (CHF) COVID-19 COVID-19 Diabetes mellitus type II, uncontrolled Diabetic foot infection Diabetic foot ulcer Diabetic nephropathy Diabetic neuropathy Diabetic retinopathy Dyspnea Essential hypertension Fistula (~12/2018) Gas gangrene of foot GERD (gastroesophageal reflux disease) History of acute myocardial infarction History of left heart catheterization (LHC) (~06/26/11) HLD (hyperlipidemia) Hypertensive emergency Hypoglycemia Hypokalemia Hypoxemia Kidney failure Kidney stones Necrotizing fasciitis 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 exposed Noncompliance Obesity (BMI 30-39.9) Pneumonia Problem with dialysis access Pulmonary edema Respiratory failure Retention, urine Right leg pain 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 Vision problems Home Medications insulin lispro 100 unit/mL subcutaneous pen 16 unit SQ TID blood sugar 10/06/19 [History Last Taken 10/31/22] insulin glargine 100 unit/mL (3 mL) subcutaneous pen 44 unit subcut DAILY blood sugar 08/11/20 [History Last Taken 10/31/22] docusate sodium 100 mg capsule (Colace) 100 mg PO DAILY constipation 09/18/21 [History Last Taken 10/28/22] pantoprazole 20 mg tablet,delayed release (Protonix) 20 mg PO DAILY gerd 09/18/21 [History Last Taken 11/01/22 07:00] prednisone 5 mg tablet 5 mg PO DAILY steroid 09/18/21 [History Last Taken 11/01/22 07:00] tacrolimus 1 mg tablet,extended release 24 hr (Envarsus XR) 1 mg PO DAILY rejection med 09/18/21 [History Last Taken 11/01/22 07:00] carvedilol 25 mg tablet 25 mg PO BID HEART 12/26/21 [History Last Taken 11/01/22 07:00] cholecalciferol (vitamin D3) 25 mcg (1,000 unit) capsule (Vitamin D3) 50 mcg PO FR SUPPLEMENT' 12/26/21 [History Last Taken 10/26/22] losartan 25 mg tablet 25 mg PO DAILY BP 09/05/22 [History Last Taken 11/01/22 07:00] sulfamethoxazole 400 mg-trimethoprim 80 mg tablet 1 tablet PO DAILY INFECTION 09/05/22 [History Last Taken 11/01/22 07:00] acetaminophen 500 mg tablet 1,000 mg PO Q4H PRN Pain 11/01/22 [History Last Taken 10/31/22] aspirin 81 mg chewable tablet 81 mg PO DAILY HEALTH 11/01/22 [History Last Taken 11/01/22 07:00] bupropion HCl 300 mg 24 hr tablet, extended release 300 mg PO DAILY MOOD 11/01/22 [History Last Taken 11/01/22 07:00] gabapentin 100 mg capsule 100 mg PO QHS NERVE PAIN 11/01/22 [History Last Taken 10/31/22] Allergy/AdvReac Type Severity Reaction Status Date / Time No Known Allergies Allergy Verified 10/18/22 09:18 Family History Mother Heart disease Hypertension Father Cancer Brother Cancer Diabetes Sister Diabetes Other Alcohol abuse Depression H/O transfusion of whole blood Kidney disease Surgical History (Updated 11/02/22 @ 11:[address] Satish Nava MD) History of appendectomy History of arteriovenostomy for renal dialysis (~08/2018) History of artificial lens replacement History of cholecystectomy History of eye surgery Kidney replaced by transplant Renal transplant recipient Status post insertion of dialysis catheter (~08/2018) Social History household members: spouse Smoking Status: Never smoker second hand exposure: No alcohol intake: never substance use type: does not use caffeine: No what type of physical activity do you participate in: none Physical Exam Const alert, oriented x3 and no apparent distress General Appearance: cooperative HEENT normocephalic and head/scalp atraumatic Eyes PERRL and EOMs intact bilaterally Neck supple and No nodes Resp normal air movement and clear to auscultation bilaterally Cardio regular rate and regular rhythm GI soft to palpation, non-tender and non-distended Extremity General Extremity: Negative for edema Skin Skin Narrative: reviewed photos Neuro CN's II-XII intact bilaterally Lab / Micro Data Attestation: I reviewed the patient's lab results. Result Diagrams: 11/02/22 04:29 11/02/22 04:29 Labs: Laboratory Results - last 24 hr 11/01/22 14:40: POC Glucose 222 H 11/01/22 20:17: POC Glucose 372 H 11/02/22 04:29: WBC 10.7, RBC 5.09, Hgb 15.6, Hct 47.5, MCV 93.3, MCH 30.6, MCHC 32.8, RDW Std Deviation 43.4, RDW Coeff of Tomy 12.7, Plt Count 179, MPV 10.5, Immature Gran % (Auto) 0.400, Neut % (Auto) 82.7 H, Lymph % (Auto) 9.3 L, [place] % (Auto) 7.5, Eos % (Auto) 0.0, Baso % (Auto) 0.1, Absolute Neuts (auto) 8.9 H, Absolute Lymphs (auto) 0.99, Nucleated RBC % 0 11/02/22 04:29: Sodium 137, Potassium 4.9, Chloride 110 H, Carbon Dioxide 22.0, Anion Gap 5, BUN 37 H, Creatinine 1.48 H, Estim Creat Clear Calc 55.84, Est GFR (MDRD) Af Amer 64, Est GFR (MDRD) Non-Af 53 L, BUN/Creatinine Ratio 25.0 H, Glucose 251 H, Calcium 9.3, C-React Prot Ext Range 13.70 H 11/02/22 06:22: POC Glucose 211 H Micro: Microbiology 11/01/22 14:40 Incision/Surgical Site Gram Stain - Final 11/01/22 14:40 Incision/Surgical Site Wound Culture - Preliminary No growth-Final to follow 11/01/22 14:13 Amputation - Toe Gram Stain - Final 11/01/22 14:13 Amputation - Toe Wound Culture - Preliminary Gram positive organism 11/01/22 09:49 Blood Culture (Wb) - Anticubital Left Bacteria Detection (PCR) - Final Coag Negative Staph 11/01/22 09:49 Blood Culture (Wb) - Anticubital Left Blood Culture - Preliminary 11/01/22 11:30 Nasal Secretion SARS-CoV-2 Antigen (Rapid) - Final Radiology Impression Foot X-Ray 11/01/22 11:52 IMPRESSION: Intraoperative images provided for transmetatarsal amputation. Electronically Signed: Tristan France MD at 15:14 EST ,
[2022-11-02 12:12] LABS: Bacteria 0 SEEN /hpf (None Seen); Mucous, Urine 0 SEEN /hpf (<or=2+); Red Blood Cells-Urine 0 SEEN /hpf (0-5); Squamous Epithelial Cells - UA 0 SEEN /hpf (0-5); White Blood Cells 0 SEEN /hpf (0-5)
[2022-11-02 12:16] LABS: Color, Urine Yellow (Yellow); Glucose, Dipstick 1000 mg/dl (Normal); Ketone-Dipstick Negative (Negative); Leukocyte Esterase-Dipstick Negative /ul (Negative); Nitrite-Dipstick Negative (Negative); Occult Blood-Urine 10 /ul (Negative); Protein-Dipstick Negative (Negative); Urine Bilirubin Dipstick Negative (Negative); Urine Clarity Clear (Clear); Urine Urobilinogen 1 mg/dl (Normal)
--- NOTE | 2022-11-02 12:45 | PN.HOSP_ITS ---
Reason for Visit Reason for Visit: Diagnoses Type 2 diabetes mellitus with diabetic polyneuropathy (11/01/22) Type 2 diabetes mellitus with other skin complications (11/01/22) Cutaneous abscess of left foot (11/01/22) Cellulitis of left lower limb (11/01/22) Local infection of the skin and subcutaneous tissue, unspecified (11/01/22) Non-pressure chronic ulcer of other part of left foot with necrosis of bone (11/01/22) Other acute osteomyelitis, left ankle and foot (11/01/22) Kidney transplant status (11/01/22) Subjective Subjective Patient seen and examined. He had no complaints today. He had an uneventful night and review of systems otherwise negative. He has remained hemodynamically stable. Objective Data Objective Data Vital Signs: Vital Signs Temp Pulse Resp BP Pulse Ox O2 Del Method O2 Flow Rate 98.1 F 80 18 142/73 H 97 Room Air 2 11/02/22 07:56 11/02/22 07:56 11/02/22 07:56 11/02/22 07:56 11/02/22 07:56 11/02/22 07:56 11/01/22 17:43 Oxygen Flow Rate (L/min) 2 Oxygen Delivery Method Room Air Weight: 239 lb 0.015 oz Body Mass Index (BMI) 80.3 Intake & Output: Intake and Output for Last 24 Hours 10/31/22 11/01/22 11/02/22 23:59 23:59 23:59 Intake Total 2490.75 / 2490.75 1035 / 1035 Output Total 700 / 700 Balance 1790.75 / 1790.75 1035 / 1035 Lab / Micro Data Result Diagrams: 11/02/22 04:29 11/02/22 04:29 Labs: Laboratory Results - last 24 hr 11/01/22 12:02: Urine Color Yellow, Urine Clarity Clear, Urine pH 6.0, Ur Specific [place] 1.030, Urine Protein Negative, Urine Glucose (UA) 1000 H, Urine Ketones Negative, Urine Occult Blood 10 H, Urine Nitrite Negative, Urine Bilirubin Negative, Urine Urobilinogen 1 H, Ur Leukocyte Esterase Negative, Urine RBC 0 SEEN, Urine WBC 0 SEEN, Ur Squamous Epith Cells 0 SEEN, Urine Bacteria 0 SEEN, Urine Mucus 0 SEEN 11/01/22 14:40: POC Glucose 222 H 11/01/22 20:17: POC Glucose 372 H 11/02/22 04:29: WBC 10.7, RBC 5.09, Hgb 15.6, Hct 47.5, MCV 93.3, MCH 30.6, MCHC 32.8, RDW Std Deviation 43.4, RDW Coeff of Tomy 12.7, Plt Count 179, MPV 10.5, Immature Gran % (Auto) 0.400, Neut % (Auto) 82.7 H, Lymph % (Auto) 9.3 L, [place] % (Auto) 7.5, Eos % (Auto) 0.0, Baso % (Auto) 0.1, Absolute Neuts (auto) 8.9 H, Absolute Lymphs (auto) 0.99, Nucleated RBC % 0 11/02/22 04:29: Sodium 137, Potassium 4.9, Chloride 110 H, Carbon Dioxide 22.0, Anion Gap 5, BUN 37 H, Creatinine 1.48 H, Estim Creat Clear Calc 55.84, Est GFR (MDRD) Af Amer 64, Est GFR (MDRD) Non-Af 53 L, BUN/Creatinine Ratio 25.0 H, Glucose 251 H, Calcium 9.3, C-React Prot Ext Range 13.70 H 11/02/22 06:22: POC Glucose 211 H Micro: Microbiology 11/01/22 14:40 Incision/Surgical Site Gram Stain - Final 11/01/22 14:40 Incision/Surgical Site Wound Culture - Preliminary No growth-Final to follow 11/01/22 14:13 Amputation - Toe Gram Stain - Final 11/01/22 14:13 Amputation - Toe Wound Culture - Preliminary Gram positive organism 11/01/22 09:49 Blood Culture (Wb) - Anticubital Left Bacteria Detection (PCR) - Final Coag Negative Staph 11/01/22 09:49 Blood Culture (Wb) - Anticubital Left Blood Culture - Preliminary 11/01/22 11:30 Nasal Secretion SARS-CoV-2 Antigen (Rapid) - Final Radiography Diagnostic Testing: Radiology Impression Foot X-Ray 11/01/22 11:52 IMPRESSION: Intraoperative images provided for transmetatarsal amputation. Electronically Signed: Tristan France MD at 15:14 EST , Physical Exam Const alert, oriented x3 and no apparent distress HEENT head/scalp atraumatic, moist oral mucous membranes and oropharynx normal Head and Scalp: normocephalic Mouth: oral and palatal mucosa normal Neck no lymphadenopathy, supple and no JVD Resp normal respiratory effort, no retractions, no use of accessory muscles and clear to auscultation bilaterally Cardio regular rate, regular rhythm, S1 normal heart sound, S2 normal heart sound and no murmurs GI normal to inspection, nondistended, normoactive bowel sounds, soft to palpation, non-tender and non-distended Extremity Extremity Narrative: Left foot bandaged. Skin Skin Narrative: Left foot bandaged. Neuro oriented x3, CN's II-XII intact bilaterally and moves all extremities Sensorium / Orientation: awake and alert Psych affect normal Assessment & Plan Assessment/Plan (1) Cellulitis of foot, left: (2) Abscess of left foot: PLAN: Plan #Left foot Diabetic foot infection * S/p left transmetatarsal amputation.? Today's postop day 1. * Management as per primary team podiatry. 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 Insulin sliding scale.? Accu-Cheks ACHS. * ID consulted. surgical cultures growing gram positive cocci. * * #Hypertension: On losartan #Hyperlipidemia: On statin #ESRD: Has a history of renal transplant.? On mycophenolate and Envarsus as well as prednisone.? Will trend creatinine. #Depression: On Wellbutrin ?#DVT prophylaxis: As per primary team Thank you for the courtesy of the consult.? We will continue to follow with you. Total time spent seeing patient and examining [id number], review of chart, reviewing specialist notes, discussion of plan of care with patient and ancillary staff as well as documentation in EMR: 40 minutes. Charges/Coding Visit Charges Inpatient E&M: 76706 Subs Hosp L2
--- NOTE | 2022-11-02 13:15 | CASEMGMT ---
RN?CM?BANJO REPAIRER?CM?to room to meet with patient for initial transition planning/care coordination?assessment.?RN?CM?introduced self and role at [facility].? Pt voices understanding and consents to?assessment?at this time.? Pt sitting up in chair in room in no distress at this time.? Pt is A/O at this time and answers all questions appropriately.?? Care providers, pharmacy, and demographics verified/updated at this time. PCP: Dr Mcneil Specialists: Dr Levy-podiatry. Dr Cabral-cardiology. Dr Medina and Suzanne Cornelius, C[employer] IN STATION OPERATOR, @ . Loida Bedoya NP- pulmonology. Conchis Meza, [place], and Dr Henderson--endocrinology. Dr Montiel-nephrology and also sees finance director @ [facility]. Preferred Pharmacy: [facility]. Tali Mcginnis, if [facility] not open. Insurance: [facility] [employer] [facility], [facility] Prescription Benefit:?Yes Living Will/HPOA:?Has both LW and HCPOA, who is his sekou Ying [place]. LNOK: fiximena/POA Ying. Colleen Yousif- Ying's niece. Living Arrangements: Lives w/Ying and his 3 kids in 2-story home w/2 steps to enter. Indep w/ADL's. Ying manages his medications and does home mgmt tasks. Ying completes daily dressing changes and he states plan is for her to continue doing this when he returns home. Transportation:?Pt does not drive. He uses [facility] transportation [facility]. Ying or friend also drives. DME: States has the following DME:?knee scooter, shower chair, grab bars, CPAP from [employer], functioning glucometer w/supplies. ?Pt states no need for further DME at this time.? HHC/SNF: No hx of SNF. Has had [facility] HHC in the past--was just discharged in August,. He declines need of HHC @ d/c. He is aware, if he changes his mind once he returns home, to discuss this with his PCP. He voices understanding. Pt wishes to return home and states has no concerns with going home at time of discharge.?CM?to follow for any further discharge planning/needs.? Pt voices no further concerns/needs at this time.? Advised pt to ask for?CM?if any further questions/concerns/needs arise.? Voices understanding. PLAN:??Home w/support of fiance and for wound care/dressing changes. Apoorva BSN?RN?CM
[2022-11-02 14:11] VITALS: BP 130/71; PULSE 81; PULSE 84; RESP 18; TEMP 36.5; O2SAT 100
--- NOTE | 2022-11-02 16:08 | CASEMGMT ---
Asked pt nurse to add to handoff that pt would like rx filled at [facility] and to request before pharmacy closes tomorrow.
[2022-11-02 21:45] VITALS: BP 138/76; PULSE 91; RESP 16; TEMP 36.7; O2SAT 98
[2022-11-02] MEDS: Gabapentin 100 MG Capsule PO (22:02)
[2022-11-03 03:45] VITALS: BP 115/65; PULSE 80; RESP 16; TEMP 36.6; O2SAT 96
[2022-11-03] MEDS: predniSONE 5 MG Tablet PO (07:58)
[2022-11-03 08:30] VITALS: BP 131/51; PULSE 81; RESP 16; TEMP 36.6; O2SAT 97
[2022-11-03] MEDS: Insulin Lispro 100 UNIT/ML INSULN.PEN SC ×4 (08:35→23:18)
--- NOTE | 2022-11-03 08:56 | PN_ITS ---
Subjective Subjective Patient was seen this morning for left foot. He is sitting up in chair with foot propped up. He is eating breakfast. No f/c/n/v/sob/chest pain or calf pain. Objective Data Objective Data Vital Signs: Vital Signs Temp Pulse Resp BP Pulse Ox O2 Del Method O2 Flow Rate 97.8 F 81 16 131/51 H 97 Room Air 2 11/03/22 08:30 11/03/22 08:30 11/03/22 08:30 11/03/22 08:30 11/03/22 08:30 11/03/22 08:30 11/01/22 17:43 Oxygen Flow Rate (L/min) 2 Oxygen Delivery Method Room Air Weight: 108.409 kg Body Mass Index (BMI) 80.3 Intake & Output: Intake and Output for Last 24 Hours 11/01/22 11/02/22 11/03/22 23:59 23:59 23:59 Intake Total 2490.75 / 2490.75 1720 / 1720 650 / 650 Output Total 700 / 700 Balance 1790.75 / 1790.75 1720 / 1720 650 / 650 Lab / Micro Data Result Diagrams: 11/02/22 04:29 11/02/22 04:29 Labs: Laboratory Results - last 24 hr 11/01/22 12:02: Urine Color Yellow, Urine Clarity Clear, Urine pH 6.0, Ur Specific [place] 1.030, Urine Protein Negative, Urine Glucose (UA) 1000 H, Urine Ketones Negative, Urine Occult Blood 10 H, Urine Nitrite Negative, Urine Bilirubin Negative, Urine Urobilinogen 1 H, Ur Leukocyte Esterase Negative, Urine RBC 0 SEEN, Urine WBC 0 SEEN, Ur Squamous Epith Cells 0 SEEN, Urine Bacteria 0 SEEN, Urine Mucus 0 SEEN 11/03/22 05:09: C-React Prot Ext Range 11.30 H Micro: Microbiology 11/01/22 09:50 Blood Culture (Wb) - Left Hand Blood Culture - Preliminary No growth in 48 hours. 11/01/22 09:49 Blood Culture (Wb) - Anticubital Left Bacteria Detection (PCR) - Final Coag Negative Staph 11/01/22 09:49 Blood Culture (Wb) - Anticubital Left Blood Culture - Preliminary Coag Negative Staph 11/01/22 14:13 Amputation - Toe Gram Stain - Final 11/01/22 14:13 Amputation - Toe Wound Culture - Preliminary Staphylococcus species GNR lactose wide area network engineer 11/01/22 14:40 Incision/Surgical Site Gram Stain - Final 11/01/22 14:40 Incision/Surgical Site Wound Culture - Preliminary No growth-Final to follow 11/01/22 11:30 Nasal Secretion SARS-CoV-2 Antigen (Rapid) - Final Physical Exam Narrative Patient alert oriented x3. Vascular: Dorsalis pedis posterior tibial pulses palpable 2 out of 4 to susan ateral lower extremity. Diffuse edema to left forefoot. Neurologic: Light touch protective sensation absent to foot. Dermatologic: Left foot s/p TMA with sutures intact, no dehiscence - minimal to no erythema, overall bleeding controlled. No visible abscess, on fluctuance, no crepitus, no necrosis. Musculoskeletal: s/p TMA in good position. No evidence of compartment syndrome. Assessment & Plan Assessment/Plan (1) Type 2 diabetes mellitus with left diabetic foot infection: (2) Non-pressure chronic ulcer of other part of left foot with necrosis of bone: (3) Type 2 diabetes mellitus with diabetic polyneuropathy: (4) Osteomyelitis of foot, left, acute: PLAN: Plan s/p left foot TMA on 11/01/22- site looks good. Bld Cx with coag neg staph - patient on Vancomycin and Zosyn. Continue to follow cultures. ID/Dr. Nava on consult. Changed dressing - 4x4 gauze, kerlix, and arielle. Keep clean, dry and intact. No weightbearing left foot. Keep left foot elevated. Hospital medicine on consult - appreciate assistance. D/c home once final antibiotics determined.
[2022-11-03 09:51] LABS: Absolute Lymphocyte Count 1.53 X10^3/uL (0.83-4.51); Absolute Neutrophil Count 5.9 X10^3/uL (2.0-7.7); Basophil# 0.02 X10^3/uL; Basophil% 0.2 % (0-1); Eosinophil# 0.07 X10^3/uL; Eosinophils% 0.8 % (0-5); Hemoglobin 14.7 g/dL (13.0-16.5); Lymphocyte # 1.53 X10^3/ul (0.83-4.51); Lymphocyte % 18.4 % (19-41); Mean Corpuscular Hgb 30.3 pg (27.0-32.0); Mean Corpuscular Volume 94.8 fL (80-94); Mean Platelet Vol. 9.8 fl (6.2-12.0); Monocyte# 0.75 X10^3/uL; NRBC Flagged by Analyzer 0 % (0-5); Neutrophil # 5.93 X10^3/uL (2.7-7.7); Neutrophil % 71.4 % (47-70); Platelet Count 184 K/mm3 (150-450); RBC Distribution Width SD 45.6 fl (35.1-43.9); Red Blood Count 4.85 M/mm3 (4.6-6.2); White Blood Count 8.3 K/mm3 (4.4-11.0)
[2022-11-03 10:04] LABS: Anion Gap 6 (5-15); BUN 44 mg/dL (7-18); BUN/Creat Ratio 27.2 RATIO (10-20); Calcium,Total 9.3 mg/dL (8.5-10.1); Chloride 114 mmol/L (98-107); Creatinine, Serum 1.62 mg/dL (0.70-1.30); EST Glomerular Filtration Rate 47 mL/min (>60); Est Glom Filt Rate - Afr Amer 57 mL/min (>60); Estimated Creatinine Clearance 51.02 ml/min; Glucose 193 mg/dL (74-106); Potassium 4.5 mmol/L (3.5-5.1); Sodium Level 142 mmol/L (136-145)
[2022-11-03] MEDS: Losartan Potassium 25 MG Tablet PO (10:37)
[2022-11-03] MEDS: Heparin Injection (Vial) 5,000 UNIT/ML VIAL 5000 UNIT SC ×2 (10:37→20:28)
[2022-11-03] MEDS: Carvedilol 25 MG Tablet PO ×2 (10:37→20:28)
[2022-11-03] MEDS: Docusate Sodium 100 MG Capsule PO (10:37)
[2022-11-03] MEDS: Tacrolimus Anhydrous 1 MG Capsule PO (10:38)
[2022-11-03] MEDS: Pantoprazole Sodium 20 MG Tablet PO (10:38)
[2022-11-03] MEDS: Insulin Glargine-YFGN 100 UNIT/ML Pen 44 UNIT SC (10:39)
[2022-11-03] MEDS: buPROPion (XL) 300 MG TABLET.XL PO (10:51)
--- NOTE | 2022-11-03 13:20 | PN.HOSP_ITS ---
Reason for Visit Reason for Visit: Diagnoses Type 2 diabetes mellitus with diabetic polyneuropathy (11/01/22) Type 2 diabetes mellitus with other skin complications (11/01/22) Cutaneous abscess of left foot (11/01/22) Cellulitis of left lower limb (11/01/22) Local infection of the skin and subcutaneous tissue, unspecified (11/01/22) Non-pressure chronic ulcer of other part of left foot with necrosis of bone (11/01/22) Other acute osteomyelitis, left ankle and foot (11/01/22) Kidney transplant status (11/01/22) Subjective Subjective Patient seen and examined. He had no active complains and had an uneventful night. Review of systems is otherwise negative. Blood cultures positive for coagulase negative staph and wound cultures are growing Staph epidermidis and Pseudomonas aeruginosa. Objective Data Objective Data Vital Signs: Vital Signs Temp Pulse Resp BP Pulse Ox O2 Del Method O2 Flow Rate 97.8 F 81 16 131/51 H 97 Room Air 2 11/03/22 08:30 11/03/22 08:30 11/03/22 08:30 11/03/22 08:30 11/03/22 08:30 11/03/22 08:30 11/01/22 17:43 Oxygen Flow Rate (L/min) 2 Oxygen Delivery Method Room Air Weight: 239 lb 0.015 oz Body Mass Index (BMI) 80.3 Intake & Output: Intake and Output for Last 24 Hours 11/01/22 11/02/22 11/03/22 23:59 23:59 23:59 Intake Total 2490.75 / 2490.75 1720 / 1720 975 / 975 Output Total 700 / 700 Balance 1790.75 / 1790.75 1720 / 1720 975 / 975 Lab / Micro Data Result Diagrams: 11/03/22 09:44 11/03/22 09:44 Labs: Laboratory Results - last 24 hr 11/03/22 05:09: C-React Prot Ext Range 11.30 H 11/03/22 09:44: WBC 8.3, RBC 4.85, Hgb 14.7, Hct 46.0, MCV 94.8 H, MCH 30.3, MCHC 32.0, RDW Std Deviation 45.6 H, RDW Coeff of Tomy 13.0, Plt Count 184, MPV 9.8, Immature Gran % (Auto) 0.200, Neut % (Auto) 71.4 H, Lymph % (Auto) 18.4 L, [place] % (Auto) 9.0, Eos % (Auto) 0.8, Baso % (Auto) 0.2, Absolute Neuts (auto) 5.9, Absolute Lymphs (auto) 1.53, Nucleated RBC % 0 11/03/22 09:44: Sodium 142, Potassium 4.5, Chloride 114 H, Carbon Dioxide 22.0, Anion Gap 6, BUN 44 H, Creatinine 1.62 H, Estim Creat Clear Calc 51.02, Est GFR (MDRD) Af Amer 57 L, Est GFR (MDRD) Non-Af 47 L, BUN/Creatinine Ratio 27.2 H, Glucose 193 H, Calcium 9.3 Micro: Microbiology 11/01/22 09:50 Blood Culture (Wb) - Left Hand Blood Culture - Preliminary No growth in 48 hours. 11/01/22 09:49 Blood Culture (Wb) - Anticubital Left Bacteria Detection (PCR) - Final Coag Negative Staph 11/01/22 09:49 Blood Culture (Wb) - Anticubital Left Blood Culture - Preliminary Coag Negative Staph 11/01/22 14:13 Amputation - Toe Gram Stain - Final 11/01/22 14:13 Amputation - Toe Wound Culture - Preliminary Staphylococcus species GNR lactose master control technician 11/01/22 14:40 Incision/Surgical Site Gram Stain - Final 11/01/22 14:40 Incision/Surgical Site Wound Culture - Preliminary No growth-Final to follow 11/01/22 11:30 Nasal Secretion SARS-CoV-2 Antigen (Rapid) - Final Physical Exam Const alert, oriented x3 and no apparent distress HEENT head/scalp atraumatic, moist oral mucous membranes and oropharynx normal Head and Scalp: normocephalic Mouth: oral and palatal mucosa normal Eyes PERRL, EOMs intact bilaterally and conjunctivae normal Neck no lymphadenopathy, supple and no JVD Resp normal respiratory effort, no retractions, no use of accessory muscles and clear to auscultation bilaterally Cardio regular rate, regular rhythm, S1 normal heart sound, S2 normal heart sound and no murmurs GI normal to inspection, nondistended, normoactive bowel sounds, soft to palpation, non-tender and non-distended Extremity Extremity Narrative: Left foot bandaged. Skin Skin Narrative: Left foot bandaged. Neuro oriented x3, CN's II-XII intact bilaterally and moves all extremities Sensorium / Orientation: awake and alert Psych affect normal Assessment & Plan Assessment/Plan (1) Cellulitis of foot, left: (2) Abscess of left foot: PLAN: Plan #Left foot Diabetic foot infection * S/p left transmetatarsal amputation.? Today's postop day 2. * Management as per primary team podiatry. 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 Insulin sliding scale.? Accu-Cheks ACHS. * Id on board. * wound cultures growing Staph epidermidis and Pseudomonas aeruginosa. * blood cultures growing coagulase negative Staph * * #Hypertension: On losartan #Hyperlipidemia: On statin #ESRD: Has a history of renal transplant.? On mycophenolate and Envarsus as well as prednisone.? Will trend creatinine. #Depression: On Wellbutrin ?#DVT prophylaxis: As per primary team; on heparin Thank you for the courtesy of the consult.? We will continue to follow with you. Total time spent seeing patient and examining [id number], review of chart, reviewing specialist notes, discussion of plan of care with patient and ancillary staff as well as documentation in EMR: 35 minutes. Charges/Coding Visit Charges Inpatient E&M: 70587 Subs Hosp L2
[2022-11-03 13:32] VITALS: BP 155/76; PULSE 85; RESP 16; TEMP 36.6; O2SAT 98
[2022-11-03] MEDS: Acetaminophen 325 MG Tablet 650 MG PO (17:21)
[2022-11-03 20:10] LABS: Vancomycin, Trough Level 21.1 ug/mL (5.0-15.0)
[2022-11-03] MEDS: Gabapentin 100 MG Capsule PO (20:30)
[2022-11-03 20:38] VITALS: BP 149/77; PULSE 80; RESP 16; TEMP 36.2; O2SAT 96
[2022-11-03] MEDS: 0.9% Saline Lock 10 ML Syringe IV (23:17)
--- NOTE | 2022-11-04 00:40 | PCM.RX.CS ---
Consult Pharmacy has been consulted to manage selected antiobiotic: Vancomycin Type of Consult: Follow-up Labs: Sodium 142 mmol/L (136-145) 11/03/22 09:44 Potassium 4.5 mmol/L (3.5-5.1) 11/03/22 09:44 Chloride 114 mmol/L (98-107) H 11/03/22 09:44 Carbon Dioxide 22.0 mmol/L (21.0-32.0) 11/03/22 09:44 Anion Gap 6 (5-15) 11/03/22 09:44 BUN 44 mg/dL (7-18) H 11/03/22 09:44 Creatinine 1.62 mg/dL (0.70-1.30) H 11/03/22 09:44 Est GFR (MDRD) Af Amer 57 mL/min (>60) L 11/03/22 09:44 Est GFR (MDRD) Non-Af 47 mL/min (>60) L 11/03/22 09:44 BUN/Creatinine Ratio 27.2 RATIO (10-20) H 11/03/22 09:44 Glucose 193 mg/dL (74-106) H 11/03/22 09:44 Vancomycin Trough 21.1 ug/mL (5.0-15.0) H 11/03/22 19:32 Microbiology: Microbiology 11/01/22 14:40 Incision/Surgical Site Gram Stain - Final 11/01/22 14:40 Incision/Surgical Site Wound Culture - Preliminary No growth-Final to follow 11/01/22 14:40 Incision/Surgical Site Anaerobic Culture - Preliminary No growth in 48 hours. 11/01/22 14:13 Amputation - Toe Gram Stain - Final 11/01/22 14:13 Amputation - Toe Wound Culture - Preliminary Staphylococcus species GNR lactose human geography instructor 11/01/22 14:13 Amputation - Toe Anaerobic Culture - Preliminary 11/01/22 09:50 Blood Culture (Wb) - Left Hand Blood Culture - Preliminary No growth in 48 hours. 11/01/22 09:49 Blood Culture (Wb) - Anticubital Left Bacteria Detection (PCR) - Final Coag Negative Staph 11/01/22 09:49 Blood Culture (Wb) - Anticubital Left Blood Culture - Preliminary Coag Negative Staph 11/01/22 11:30 Nasal Secretion SARS-CoV-2 Antigen (Rapid) - Final Goal Trough: 15-20 mcg/mL Pharmacy Plan for Drug Dosing: Pharmacy Service will continue to monitor and adjust dosing as required. TROUGH 21.1 @ 11.5 HRS. HOLD NEXT DOSE AND FOLLOW UP LEVEL IN 18 HRS Follow-Up Labs: Trough Vancomycin Labs to be done on [date and time ordered]: 11/04 @ 1591
[2022-11-04 02:33] VITALS: BP 124/77; PULSE 87; RESP 16; TEMP 36.5; O2SAT 93
[2022-11-04 06:40] LABS: CRP 8.08 mg/L (0.0-3.0)
[2022-11-04] MEDS: predniSONE 5 MG Tablet PO (08:21)
[2022-11-04] MEDS: Insulin Lispro 100 UNIT/ML INSULN.PEN SC ×4 (08:21→21:15)
[2022-11-04 08:40] LABS: Absolute Lymphocyte Count 1.64 X10^3/uL (0.83-4.51); Absolute Neutrophil Count 3.8 X10^3/uL (2.0-7.7); Basophil# 0.03 X10^3/uL; Basophil% 0.5 % (0-1); Eosinophil# 0.05 X10^3/uL; Eosinophils% 0.8 % (0-5); Hematocrit 44.1 % (40-54); Hemoglobin 14.2 g/dL (13.0-16.5); Lymphocyte # 1.64 X10^3/ul (0.83-4.51); Lymphocyte % 26.5 % (19-41); Mean Corp Hgb Conc 32.2 g/dL (32-36); Mean Corpuscular Hgb 30.7 pg (27.0-32.0); Mean Corpuscular Volume 95.5 fL (80-94); Mean Platelet Vol. 10.1 fl (6.2-12.0); Monocyte# 0.65 X10^3/uL; Monocyte% 10.5 % (0-10); NRBC Flagged by Analyzer 0 % (0-5); Neutrophil # 3.79 X10^3/uL (2.7-7.7); Neutrophil % 61.4 % (47-70); Platelet Count 184 K/mm3 (150-450); RBC Distribution Width CV 12.9 % (11.6-14.6); RBC Distribution Width SD 45.1 fl (35.1-43.9); Red Blood Count 4.62 M/mm3 (4.6-6.2); White Blood Count 6.2 K/mm3 (4.4-11.0)
--- NOTE | 2022-11-04 08:59 | PCM.PROGNOTE ---
Subjective Subjective Patient was seen this morning. He is sitting up in bed eating breakfast. He denies any f/c/n/v/sob/cp/calf pain. Objective Data Objective Data Vital Signs: Vital Signs Temp Pulse Resp BP Pulse Ox O2 Del Method O2 Flow Rate 97.7 F L 87 16 124/77 H 93 Room Air 2 11/04/22 02:33 11/04/22 02:33 11/04/22 02:33 11/04/22 02:33 11/04/22 02:33 11/04/22 02:33 11/01/22 17:43 Oxygen Flow Rate (L/min) 2 Oxygen Delivery Method Room Air Weight: 108.409 kg Body Mass Index (BMI) 80.3 Intake & Output: Intake and Output for Last 24 Hours 11/02/22 11/03/22 11/04/22 23:59 23:59 23:59 Intake Total 1720 / 1720 1300 / 1300 50 / 50 Balance 1720 / 1720 1300 / 1300 50 / 50 Lab / Micro Data Result Diagrams: 11/04/22 04:39 11/03/22 09:44 Labs: Laboratory Results - last 24 hr 11/03/22 09:44: WBC 8.3, RBC 4.85, Hgb 14.7, Hct 46.0, MCV 94.8 H, MCH 30.3, MCHC 32.0, RDW Std Deviation 45.6 H, RDW Coeff of Tomy 13.0, Plt Count 184, MPV 9.8, Immature Gran % (Auto) 0.200, Neut % (Auto) 71.4 H, Lymph % (Auto) 18.4 L, [place] % (Auto) 9.0, Eos % (Auto) 0.8, Baso % (Auto) 0.2, Absolute Neuts (auto) 5.9, Absolute Lymphs (auto) 1.53, Nucleated RBC % 0 11/03/22 09:44: Sodium 142, Potassium 4.5, Chloride 114 H, Carbon Dioxide 22.0, Anion Gap 6, BUN 44 H, Creatinine 1.62 H, Estim Creat Clear Calc 51.02, Est GFR (MDRD) Af Amer 57 L, Est GFR (MDRD) Non-Af 47 L, BUN/Creatinine Ratio 27.2 H, Glucose 193 H, Calcium 9.3 11/03/22 19:32: Vancomycin Trough 21.1 H 11/04/22 04:39: C-React Prot Ext Range 8.08 H 11/04/22 04:39: WBC 6.2, RBC 4.62, Hgb 14.2, Hct 44.1, MCV 95.5 H, MCH 30.7, MCHC 32.2, RDW Std Deviation 45.1 H, RDW Coeff of Tomy 12.9, Plt Count 184, MPV 10.1, Immature Gran % (Auto) 0.300, Neut % (Auto) 61.4, Lymph % (Auto) 26.5, [place] % (Auto) 10.5 H, Eos % (Auto) 0.8, Baso % (Auto) 0.5, Absolute Neuts (auto) 3.8, Absolute Lymphs (auto) 1.64, Nucleated RBC % 0 Micro: Microbiology 11/01/22 14:13 Amputation - Toe Gram Stain - Final 11/01/22 14:13 Amputation - Toe Wound Culture - Preliminary Staphylococcus epidermidis GNR lactose technology integration specialist 11/01/22 14:40 Incision/Surgical Site Gram Stain - Final 11/01/22 14:40 Incision/Surgical Site Wound Culture - Preliminary No growth-Final to follow 11/01/22 14:40 Incision/Surgical Site Anaerobic Culture - Preliminary No growth in 48 hours. 11/01/22 09:50 Blood Culture (Wb) - Left Hand Blood Culture - Preliminary No growth in 48 hours. 11/01/22 09:49 Blood Culture (Wb) - Anticubital Left Bacteria Detection (PCR) - Final Coag Negative Staph 11/01/22 09:49 Blood Culture (Wb) - Anticubital Left Blood Culture - Preliminary Coag Negative Staph 11/01/22 11:30 Nasal Secretion SARS-CoV-2 Antigen (Rapid) - Final Physical Exam Narrative Patient alert oriented x3. Vascular: Dorsalis pedis posterior tibial pulses palpable 2 out of 4 to bilateral lower extremity. Diffuse edema to left forefoot. Neurologic: Light touch protective sensation absent to foot. Dermatologic: Left foot s/p TMA with sutures intact, no dehiscence - minimal to no erythema, overall bleeding controlled. No visible abscess, on fluctuance, no crepitus, no necrosis. Musculoskeletal: s/p TMA in good position. No evidence of compartment syndrome. Assessment & Plan Assessment/Plan (1) Type 2 diabetes mellitus with left diabetic foot infection: (2) Non-pressure chronic ulcer of other part of left foot with necrosis of bone: (3) Type 2 diabetes mellitus with diabetic polyneuropathy: (4) Osteomyelitis of foot, left, acute: PLAN: Plan s/p left foot TMA on 11/01/22- site looks good. Bld Cx with coag neg staph - patient on Vancomycin and Zosyn. Continue to follow cultures. ID/Dr. Nava on consult. Changed dressing - 4x4 gauze, kerlix, and arielle. Keep clean, dry and intact. No weightbearing left foot. Keep left foot elevated. Hospital medicine on consult - appreciate assistance. D/c home once final antibiotics determined.
[2022-11-04 09:10] LABS: Anion Gap 10 (5-15); BUN 41 mg/dL (7-18); BUN/Creat Ratio 29.9 RATIO (10-20); Calcium,Total 9.4 mg/dL (8.5-10.1); Chloride 114 mmol/L (98-107); Creatinine, Serum 1.37 mg/dL (0.70-1.30); EST Glomerular Filtration Rate 58 mL/min (>60); Est Glom Filt Rate - Afr Amer 70 mL/min (>60); Estimated Creatinine Clearance 60.33 ml/min; Glucose 167 mg/dL (74-106); Potassium 4.6 mmol/L (3.5-5.1); Sodium Level 143 mmol/L (136-145)
[2022-11-04 10:27] VITALS: BP 146/79; PULSE 90; RESP 16; TEMP 36.9; O2SAT 98
[2022-11-04] MEDS: Docusate Sodium 100 MG Capsule PO (10:35)
[2022-11-04] MEDS: Heparin Injection (Vial) 5,000 UNIT/ML VIAL 5000 UNIT SC ×2 (10:35→21:17)
[2022-11-04] MEDS: Insulin Glargine-YFGN 100 UNIT/ML Pen 44 UNIT SC (10:35)
[2022-11-04] MEDS: Carvedilol 25 MG Tablet PO ×2 (10:35→21:15)
[2022-11-04] MEDS: Losartan Potassium 25 MG Tablet PO (10:35)
[2022-11-04] MEDS: Pantoprazole Sodium 20 MG Tablet PO (10:37)
[2022-11-04] MEDS: Tacrolimus Anhydrous 1 MG Capsule PO (10:37)
[2022-11-04] MEDS: buPROPion (XL) 300 MG TABLET.XL PO (10:37)
--- NOTE | 2022-11-04 13:46 | PN_ITS ---
Subjective Subjective Patient seen and examined. He had no complaints and had an uneventful night. Review of systems otherwise negative. He has remained hemodynamic stable. Objective Data Objective Data Vital Signs: Vital Signs Temp Pulse Resp BP Pulse Ox O2 Del Method O2 Flow Rate 98.5 F 90 16 146/79 H 98 Room Air 2 11/04/22 10:27 11/04/22 10:27 11/04/22 10:27 11/04/22 10:27 11/04/22 10:27 11/04/22 10:27 11/01/22 17:43 Oxygen Flow Rate (L/min) 2 Oxygen Delivery Method Room Air Weight: 239 lb 0.015 oz Body Mass Index (BMI) 80.3 Intake & Output: Intake and Output for Last 24 Hours 11/02/22 11/03/22 11/04/22 23:59 23:59 23:59 Intake Total 1720 / 1720 1300 / 1300 100 / 100 Balance 1720 / 1720 1300 / 1300 100 / 100 Lab / Micro Data Result Diagrams: 11/04/22 04:39 11/04/22 04:39 Labs: Laboratory Results - last 24 hr 11/03/22 19:32: Vancomycin Trough 21.1 H 11/04/22 04:39: C-React Prot Ext Range 8.08 H 11/04/22 04:39: WBC 6.2, RBC 4.62, Hgb 14.2, Hct 44.1, MCV 95.5 H, MCH 30.7, MCHC 32.2, RDW Std Deviation 45.1 H, RDW Coeff of Tomy 12.9, Plt Count 184, MPV 10.1, Immature Gran % (Auto) 0.300, Neut % (Auto) 61.4, Lymph % (Auto) 26.5, [place] % (Auto) 10.5 H, Eos % (Auto) 0.8, Baso % (Auto) 0.5, Absolute Neuts (auto) 3.8, Absolute Lymphs (auto) 1.64, Nucleated RBC % 0 11/04/22 04:39: Sodium 143, Potassium 4.6, Chloride 114 H, Carbon Dioxide 19.0 L , Anion Gap 10, BUN 41 H, Creatinine 1.37 H, Estim Creat Clear Calc 60.33, Est GFR (MDRD) Af Amer 70, Est GFR (MDRD) Non-Af 58 L, BUN/Creatinine Ratio 29.9 H, Glucose 167 H, Calcium 9.4 Micro: Microbiology 11/01/22 14:40 Incision/Surgical Site Gram Stain - Final 11/01/22 14:40 Incision/Surgical Site Wound Culture - Preliminary Gram Positive Cocci 11/01/22 14:40 Incision/Surgical Site Anaerobic Culture - Preliminary No growth in 48 hours. 11/01/22 14:13 Amputation - Toe Gram Stain - Final 11/01/22 14:13 Amputation - Toe Wound Culture - Preliminary Staphylococcus epidermidis GNR lactose valet service attendant 11/01/22 14:13 Amputation - Toe Anaerobic Culture - Final No anaerobic bacteria isolated. 11/01/22 09:50 Blood Culture (Wb) - Left Hand Blood Culture - Preliminary No growth in 48 hours. 11/01/22 09:49 Blood Culture (Wb) - Anticubital Left Bacteria Detection (PCR) - Final Coag Negative Staph 11/01/22 09:49 Blood Culture (Wb) - Anticubital Left Blood Culture - Preliminary Coag Negative Staph 11/01/22 11:30 Nasal Secretion SARS-CoV-2 Antigen (Rapid) - Final Physical Exam Const alert, oriented x3 and no apparent distress HEENT normocephalic, head/scalp atraumatic, moist oral mucous membranes and oropharynx normal Eyes PERRL, EOMs intact bilaterally and conjunctivae normal Neck no lymphadenopathy, supple and no JVD Resp normal respiratory effort, normal air movement, no retractions, no use of accessory muscles and clear to auscultation bilaterally Cardio regular rate, regular rhythm, S1 normal heart sound, S2 normal heart sound and no murmurs GI normal to inspection, nondistended, normoactive bowel sounds, soft to palpation, non-tender and non-distended Extremity Extremity Narrative: Left foot bandaged. Skin Skin Narrative: Left foot bandaged. Neuro oriented x3, CN's II-XII intact bilaterally and moves all extremities Sensorium / Orientation: awake and alert Psych affect normal Assessment & Plan Assessment/Plan (1) Cellulitis of foot, left: (2) Abscess of left foot: PLAN: Plan #Left foot Diabetic foot infection * S/p left transmetatarsal amputation.? Today's postop day 3. * Management as per primary team podiatry. 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 Insulin sliding scale.? Accu-Cheks ACHS. * Id on board. * wound cultures growing Staph epidermidis and Pseudomonas aeruginosa. * blood cultures growing coagulase negative Staph * * #Hypertension: On losartan #Hyperlipidemia: On statin #ESRD: Has a history of renal transplant.? On mycophenolate and Envarsus as well as prednisone.? Will trend creatinine. #Depression: On Wellbutrin ?#DVT prophylaxis: As per primary team; on heparin Total time spent seeing patient and examining [id number], review of chart, reviewing specialist notes, discussion of plan of care with patient and ancillary staff as well as documentation in EMR: 33 minutes. Charges/Coding Visit Charges Inpatient E&M: 22862 Subs Hosp L2
[2022-11-04 14:04] VITALS: BP 129/70; PULSE 80; RESP 16; TEMP 36.9; O2SAT 96
[2022-11-04 14:16] LABS: Vancomycin, Random Level 16.1 ug/mL (0.0-15.0)
--- NOTE | 2022-11-04 14:46 | PCM.RX.CS ---
Consult Pharmacy has been consulted to manage selected antiobiotic: Vancomycin Type of Consult: Follow-up Labs: Sodium 143 mmol/L (136-145) 11/04/22 04:39 Potassium 4.6 mmol/L (3.5-5.1) 11/04/22 04:39 Chloride 114 mmol/L (98-107) H 11/04/22 04:39 Carbon Dioxide 19.0 mmol/L (21.0-32.0) L 11/04/22 04:39 Anion Gap 10 (5-15) 11/04/22 04:39 BUN 41 mg/dL (7-18) H 11/04/22 04:39 Creatinine 1.37 mg/dL (0.70-1.30) H 11/04/22 04:39 Est GFR (MDRD) Af Amer 70 mL/min (>60) 11/04/22 04:39 Est GFR (MDRD) Non-Af 58 mL/min (>60) L 11/04/22 04:39 BUN/Creatinine Ratio 29.9 RATIO (10-20) H 11/04/22 04:39 Glucose 167 mg/dL (74-106) H 11/04/22 04:39 Vancomycin Trough 21.1 ug/mL (5.0-15.0) H 11/03/22 19:32 Random Vancomycin 16.1 ug/mL (0.0-15.0) H 11/04/22 13:31 Microbiology: Microbiology 11/01/22 14:40 Incision/Surgical Site Gram Stain - Final 11/01/22 14:40 Incision/Surgical Site Wound Culture - Preliminary Gram Positive Cocci 11/01/22 14:40 Incision/Surgical Site Anaerobic Culture - Preliminary No growth in 48 hours. 11/01/22 14:13 Amputation - Toe Gram Stain - Final 11/01/22 14:13 Amputation - Toe Wound Culture - Preliminary Staphylococcus epidermidis GNR lactose project development engineer 11/01/22 14:13 Amputation - Toe Anaerobic Culture - Final No anaerobic bacteria isolated. 11/01/22 09:50 Blood Culture (Wb) - Left Hand Blood Culture - Preliminary No growth in 48 hours. 11/01/22 09:49 Blood Culture (Wb) - Anticubital Left Bacteria Detection (PCR) - Final Coag Negative Staph 11/01/22 09:49 Blood Culture (Wb) - Anticubital Left Blood Culture - Preliminary Coag Negative Staph 11/01/22 11:30 Nasal Secretion SARS-CoV-2 Antigen (Rapid) - Final Goal Trough: 15-20 mcg/mL Pharmacy Plan for Drug Dosing: VANCOMYCIN LEVEL RECEIVED Current Vancomycin Dose: on hold due to elevated trough (was 1250mg q12h) Number of Doses Received: Vancomycin Level: 16.1 Hours Since Last Dose: ~17 hours since last 1250mg dose on 11/03/22 at 2014 Renal Function: SrCr 1.37 Renal Function Trend: SrCr improving Lab/Micro: Vancomycin Plan/Comments: recommend restarting Vancomycin at 1000mg q12h. Checking a trough prior to the 3rd dose to ensure proper dosing Pending Level: 11/05/22 at 1430 Pharmacy Service will continue to monitor and adjust dosing as required. Follow-Up Labs: Trough Vancomycin - 11/05/22 at 1430
[2022-11-04] MEDS: Vancomycin IV 1,000 MG/200 ML BAG 200 MG IV (15:18)
[2022-11-04] MEDS: Acetaminophen 325 MG Tablet 650 MG PO (17:13)
[2022-11-04 19:51] VITALS: BP 152/81; PULSE 88; RESP 18; TEMP 36.8; O2SAT 92
[2022-11-04] MEDS: Gabapentin 100 MG Capsule PO (21:15)
--- NOTE | 2022-11-04 21:22 | NURSING ---
blood sugar 302 per patient Dexcom meter
[2022-11-05 02:56] VITALS: BP 138/73; PULSE 84; RESP 16; TEMP 36.7; O2SAT 93
[2022-11-05] MEDS: Vancomycin IV 1,000 MG/200 ML BAG 200 MG IV ×2 (02:58→15:26)
--- NOTE | 2022-11-05 06:26 | NURSING ---
patient blood sugar 309 via Dexcom
[2022-11-05 06:31] LABS: CRP 5.83 mg/L (0.0-3.0)
[2022-11-05 07:36] VITALS: BP 162/88; PULSE 80; RESP 18; TEMP 36.7; O2SAT 93
--- NOTE | 2022-11-05 08:46 | WOUNDNOTE ---
wound photo: left foot
--- NOTE | 2022-11-05 08:47 | WOUNDNOTE ---
wound photo: left foot
--- NOTE | 2022-11-05 08:48 | WOUNDNOTE ---
wound photo: left foot
[2022-11-05] MEDS: Insulin Lispro 100 UNIT/ML INSULN.PEN SC ×3 (08:58→17:20)
[2022-11-05] MEDS: Insulin Glargine-YFGN 100 UNIT/ML Pen 44 UNIT SC (08:59)
[2022-11-05] MEDS: Heparin Injection (Vial) 5,000 UNIT/ML VIAL 5000 UNIT SC (09:00)
[2022-11-05] MEDS: Docusate Sodium 100 MG Capsule PO (09:01)
[2022-11-05] MEDS: Losartan Potassium 25 MG Tablet PO (09:01)
[2022-11-05] MEDS: Pantoprazole Sodium 20 MG Tablet PO (09:01)
[2022-11-05] MEDS: Carvedilol 25 MG Tablet PO (09:01)
[2022-11-05] MEDS: buPROPion (XL) 300 MG TABLET.XL PO (09:02)
[2022-11-05] MEDS: Tacrolimus Anhydrous 1 MG Capsule PO (09:02)
[2022-11-05] MEDS: predniSONE 5 MG Tablet PO (09:02)
[2022-11-05 13:16] LABS: Bedside Glucose 285 mg/dL (74-106)
--- NOTE | 2022-11-05 14:19 | PCM.PN.ID ---
Physical Exam Narrative Feeling well, wants to go home, no fever Const alert and no apparent distress Resp normal air movement and clear to auscultation bilaterally Cardio regular rate and regular rhythm GI soft to palpation, non-tender and non-distended Skin Skin Narrative: foot wrapped ID ID: Route of nutrition/ use of supplements: [] Nutritional Intake: [] IV Site: [] Sky Catheter: [] Assessment & Plan Assessment/Plan (1) Osteomyelitis of foot, left, acute: PLAN: Now s/p TMA 11/01/[address] Levy. 1 of 2 bcx with CoNS, consistent with contaminant. Surg cx with gram pos growing so far but this was not checking for clearance. Wound cx 10/25/22 with MRSE and PsA. On vanc/zosyn. Ok for discharge with po doxy 100mg bid and po cipro 500mg bid at discharge for 1 week. Will follow (2) Type 2 diabetes mellitus with diabetic polyneuropathy: (3) Renal transplant recipient:
--- NOTE | 2022-11-05 14:54 | CASEMGMT ---
Noted pt to be dc'd on po atb. RN CM in to pt room, pt sitting up in chair. Pt states he still wants to go home with his performing dressing changes. He is aware he will be on po atb. Pt denies any needs at this time.
[2022-11-05 15:20] LABS: Vancomycin, Trough Level 18.4 ug/mL (5.0-15.0)
[2022-11-05 15:24] VITALS: BP 149/80; PULSE 84; RESP 18; TEMP 36.9; O2SAT 94
--- NOTE | 2022-11-05 15:51 | PCM.RX.CS ---
Consult Pharmacy has been consulted to manage selected antiobiotic: Vancomycin Type of Consult: Follow-up Labs: Sodium 143 mmol/L (136-145) 11/04/22 04:39 Potassium 4.6 mmol/L (3.5-5.1) 11/04/22 04:39 Chloride 114 mmol/L (98-107) H 11/04/22 04:39 Carbon Dioxide 19.0 mmol/L (21.0-32.0) L 11/04/22 04:39 Anion Gap 10 (5-15) 11/04/22 04:39 BUN 41 mg/dL (7-18) H 11/04/22 04:39 Creatinine 1.37 mg/dL (0.70-1.30) H 11/04/22 04:39 Est GFR (MDRD) Af Amer 70 mL/min (>60) 11/04/22 04:39 Est GFR (MDRD) Non-Af 58 mL/min (>60) L 11/04/22 04:39 BUN/Creatinine Ratio 29.9 RATIO (10-20) H 11/04/22 04:39 Glucose 167 mg/dL (74-106) H 11/04/22 04:39 Vancomycin Trough 18.4 ug/mL (5.0-15.0) H 11/05/22 14:40 Random Vancomycin 16.1 ug/mL (0.0-15.0) H 11/04/22 13:31 Microbiology: Microbiology 11/01/22 14:13 Amputation - Toe Gram Stain - Final 11/01/22 14:13 Amputation - Toe Wound Culture - Final Staphylococcus epidermidis Enterobacter cloacae complex 11/01/22 14:13 Amputation - Toe Anaerobic Culture - Final No anaerobic bacteria isolated. 11/01/22 14:40 Incision/Surgical Site Gram Stain - Final 11/01/22 14:40 Incision/Surgical Site Wound Culture - Final Staphylococcus epidermidis 11/01/22 14:40 Incision/Surgical Site Anaerobic Culture - Preliminary No growth in 48 hours. 11/01/22 09:50 Blood Culture (Wb) - Left Hand Blood Culture - Preliminary No growth in 48 hours. 11/01/22 09:49 Blood Culture (Wb) - Anticubital Left Bacteria Detection (PCR) - Final Coag Negative Staph 11/01/22 09:49 Blood Culture (Wb) - Anticubital Left Blood Culture - Preliminary Coag Negative Staph 11/01/22 11:30 Nasal Secretion SARS-CoV-2 Antigen (Rapid) - Final Goal Trough: 15-20 mcg/mL Pharmacy Plan for Drug Dosing: VANCOMYCIN LEVEL RECEIVED Current Vancomycin Dose: 1000mg IV Q12hr Number of Doses Received: 4 (of new dose) Vancomycin Level:18.4 Hours Since Last Dose: 11.75hr Renal Function: 1.37 Renal Function Trend: stable Vancomycin Plan/Comments: Patient had a trough drawn which resulted in a value of 18.4 (Goal 15-20). Patient is within therapeutic range. Will continue current dose and recheck a trough in 2 days to assess dosing. Pending Level: 11/07/22 @1430 Pharmacy Service will continue to monitor and adjust dosing as required.
--- NOTE | 2022-11-05 19:03 | PCM.PROGNOTE ---
Subjective Subjective Patient was seen bedside sitting up in chair with feet on ground. He states he is ready to go home today. Says infectious disease saw him today recommending continued oral antibiotics in outpatient setting. Denies any constitutional symptoms. Has no further complaints. Objective Data Objective Data Vital Signs: Vital Signs Temp Pulse Resp BP Pulse Ox O2 Del Method O2 Flow Rate 98.4 F 84 18 149/80 H 94 Room Air 2 11/05/22 15:24 11/05/22 15:24 11/05/22 15:24 11/05/22 15:24 11/05/22 15:24 11/05/22 15:24 11/01/22 17:43 Oxygen Flow Rate (L/min) 2 Oxygen Delivery Method Room Air Weight: 108.409 kg Body Mass Index (BMI) 80.3 Intake & Output: Intake and Output for Last 24 Hours 11/03/22 11/04/22 11/05/22 23:59 23:59 23:59 Intake Total 1300 / 1300 350 / 350 750.00 / 750.00 Output Total 200 / 200 Balance 1300 / 1300 350 / 150 550.00 / 550.00 Lab / Micro Data Result Diagrams: 11/04/22 04:39 11/04/22 04:39 Labs: Laboratory Results - last 24 hr 11/05/22 04:31: C-React Prot Ext Range 5.83 H 11/05/22 12:50: POC Glucose 285 H 11/05/22 14:40: Vancomycin Trough 18.4 H Micro: Microbiology 11/01/22 14:13 Amputation - Toe Gram Stain - Final 11/01/22 14:13 Amputation - Toe Wound Culture - Final Staphylococcus epidermidis Enterobacter cloacae complex 11/01/22 14:13 Amputation - Toe Anaerobic Culture - Final No anaerobic bacteria isolated. 11/01/22 14:40 Incision/Surgical Site Gram Stain - Final 11/01/22 14:40 Incision/Surgical Site Wound Culture - Final Staphylococcus epidermidis 11/01/22 14:40 Incision/Surgical Site Anaerobic Culture - Preliminary No growth in 48 hours. 11/01/22 09:50 Blood Culture (Wb) - Left Hand Blood Culture - Preliminary No growth in 48 hours. 11/01/22 09:49 Blood Culture (Wb) - Anticubital Left Bacteria Detection (PCR) - Final Coag Negative Staph 11/01/22 09:49 Blood Culture (Wb) - Anticubital Left Blood Culture - Preliminary Coag Negative Staph 11/01/22 11:30 Nasal Secretion SARS-CoV-2 Antigen (Rapid) - Final Physical Exam Narrative Patient alert oriented x3. Vascular: Dorsalis pedis posterior tibial pulses palpable 2 out of 4 to bilateral lower extremity. Diffuse edema to left forefoot. Neurologic: Light touch protective sensation absent to foot. Dermatologic: Left foot s/p TMA with sutures intact, no dehiscence - minimal to no erythema, overall bleeding controlled. No visible abscess, on fluctuance, no crepitus, no necrosis. Musculoskeletal: s/p TMA in good position. No evidence of compartment syndrome. Const alert, oriented x3 and no apparent distress General Appearance: cooperative Assessment & Plan Assessment/Plan (1) Type 2 diabetes mellitus with left diabetic foot infection: (2) Non-pressure chronic ulcer of other part of left foot with necrosis of bone: (3) Type 2 diabetes mellitus with diabetic polyneuropathy: (4) Osteomyelitis of foot, left, acute: (5) History of transmetatarsal amputation of left foot: PLAN: Plan Patient seen and evaluated s/p left foot TMA on 11/01/22, POD number- site looks good. Bld Cx with coag neg staph - patient on Vancomycin and Zosyn. ID/Dr. Nava on consult. ID recommending continued oral antibiotics in outpatient setting upon discharge. Changed dressing - 4x4 gauze, kerlix, and arielle. Keep dressings clean, dry and intact. No weightbearing left foot. He was instructed to use knee scooter at all times to remain compliant with his nonweightbearing status. Keep left foot elevated. Hospital medicine on consult - appreciate assistance. Patient to be D/c home and will continue oral antibiotics in outpatient setting. He is scheduled to follow-up in office on 11/07/2022. Jimenez Medina Jr. D.P.M. [facility] [place] [phone]
--- NOTE | 2022-11-05 19:09 | PCM.DC.SUM ---
Providers Date of Admission: 11/01/22 Date of Discharge: 11/05/22 Primary Care Physician: Dr. Zaida Mcneil MD Consultations 11/01/22 14:43 Consult: Hospitalist Routine Consulting Provider: [facility] Reason for Consult: left foot infection, sirg clearance EMERGENT Consult: No Notified: Yes Date Notified: 11/01/22 Time Notified: 11:00 Method of Notification: ED Physician Initiated Consult: Infectious Disease Routine Consulting Provider: Satish Nava Reason for Consult: left foot infection, TMA today EMERGENT Consult: No Notified: Yes Date Notified: 11/01/22 Time Notified: 15:54 Method of Notification: Answering Service Consult: Onc/Wound/director business travel Routine Comment: Reason For Visit: wound Diagnosis Discharge Diagnosis (1) Type 2 diabetes mellitus with left diabetic foot infection: Status: Acute Code(s): E11.628 - Type 2 diabetes mellitus with other skin complications; L08.9 - Local infection of the skin and subcutaneous tissue, unspecified (2) Non-pressure chronic ulcer of other part of left foot with necrosis of bone: Status: Chronic Code(s): L97.524 - Non-pressure chronic ulcer of other part of left foot with necrosis of bone (3) Type 2 diabetes mellitus with diabetic polyneuropathy: Status: Acute Code(s): E11.42 - Type 2 diabetes mellitus with diabetic polyneuropathy (4) Osteomyelitis of foot, left, acute: Status: Acute Code(s): M86.172 - Other acute osteomyelitis, left ankle and foot (5) History of transmetatarsal amputation of left foot: Status: Acute Code(s): Z89.432 - Acquired absence of left foot Plan Patient seen and evaluated s/p left foot TMA on 11/01/22, POD number- site looks good. Bld Cx with coag neg staph - patient on Vancomycin and Zosyn. ID/Dr. Nava on consult. ID recommending continued oral antibiotics in outpatient setting upon discharge. Changed dressing - 4x4 gauze, kerlix, and arielle. Keep dressings clean, dry and intact. No weightbearing left foot. He was instructed to use knee scooter at all times to remain compliant with his nonweightbearing status. Keep left foot elevated. Hospital medicine on consult - appreciate assistance. Patient to be D/c home and will continue oral antibiotics in outpatient setting. He is scheduled to follow-up in office on 11/07/2022. Jr. Mery Paredes.[facility] [phone] Medications at Discharge Home Medications insulin lispro 100 unit/mL subcutaneous pen 16 unit SQ TID blood sugar 10/06/19 insulin glargine 100 unit/mL (3 mL) subcutaneous pen 44 unit subcut DAILY blood sugar 08/11/20 docusate sodium 100 mg capsule (Colace) 100 mg PO DAILY constipation 09/18/21 pantoprazole 20 mg tablet,delayed release (Protonix) 20 mg PO DAILY gerd 09/18/21 prednisone 5 mg tablet 5 mg PO DAILY steroid 09/18/21 tacrolimus 1 mg tablet,extended release 24 hr (Envarsus XR) 1 mg PO DAILY rejection med 09/18/21 carvedilol 25 mg tablet 25 mg PO BID HEART 12/26/21 cholecalciferol (vitamin D3) 25 mcg (1,000 unit) capsule (Vitamin D3) 50 mcg PO FR SUPPLEMENT' 12/26/21 losartan 25 mg tablet 25 mg PO DAILY BP 09/05/22 sulfamethoxazole 400 mg-trimethoprim 80 mg tablet 1 tablet PO DAILY INFECTION 09/05/22 acetaminophen 500 mg tablet 1,000 mg PO Q4H PRN Pain 11/01/22 aspirin 81 mg chewable tablet 81 mg PO DAILY HEALTH 11/01/22 bupropion HCl 300 mg 24 hr tablet, extended release 300 mg PO DAILY MOOD 11/01/22 gabapentin 100 mg capsule 100 mg PO QHS NERVE PAIN 11/01/22 ciprofloxacin HCl 500 mg tablet (Cipro) 500 mg PO BID #14 tabs 11/05/22 doxycycline hyclate 100 mg capsule 100 mg PO BID #14 caps 11/05/22 Hospital Course Operations - (Transmetatarsal amputation of the left foot) Procedures EKG Summary of Care Provided Minutes Spent on Discharge: 30 Hospital Course: Patient was seen in the wound care center on 11/01/[address] Medina. At that time patient presented with a degloving injury of the fourth digit full-thickness and a purple/black and necrotic third digit with palpable fluid accumulation of the digit of the left foot. Discussed with patient his history of previous amputation of a partial fifth ray, fourth metatarsal head, and base of the fourth proximal phalanx. Discussed with him amputating digit 3 and 4 would only create further issue of local wound care, continued infection, possible infection following healing, continued deformity of the remaining digits with likelihood of wound creation. Discussed with him the need for a transmetatarsal amputation of the left foot. He was sent to [facility] ED for admitting and receiving of IV antibiotics. Patient did undergo lab work along with chest x-ray and EKG in order for surgical clearance. Medicine team did follow for medical management. Cord Splicer on-call, Dr. Levy performed transmetatarsal amputation of the left foot on 11/01/2022. Following his procedure he was continued to be seen by podiatry for daily dressing changes with the amputation site viable and healthy with intact skin sutures. No signs of infection. Blood cultures did demonstrate coagulase-negative staph. Wound cultures demonstrated staph epi and PsA. Patient was continuing to receive IV antibiotics Vanco/Zosyn while in house. Infectious disease was also consulted during his stay and recommended outpatient antibiotic use. He is being discharged on doxycycline 100 mg twice daily, and ciprofloxacin 500 mg twice daily. Discussed with patient and strict nonweightbearing status to the left lower extremity with use of his knee scooter, continued elevation of the left lower extremity. Patient is noted to have popped one of the stitches at the most medial aspect of the incision. I discussed with him it is important to keep his legs elevated. Discussed continued proper diabetic diet ensuring blood glucose remains in control with adequate protein intake to aid in healing. He voices understanding of our discussion today. Patient is being discharged home and will follow-up in office for continued care postoperative transmetatarsal amputation of the left foot. Physical Exam Narrative Patient alert oriented x3. Vascular: Dorsalis pedis posterior tibial pulses palpable 2 out of 4 to bilateral lower extremity. Diffuse edema to left forefoot. Neurologic: Light touch protective sensation absent to foot. Dermatologic: Left foot s/p TMA with sutures intact, no dehiscence - minimal to no erythema, overall bleeding controlled. No visible abscess, on fluctuance, no crepitus, no necrosis. Musculoskeletal: s/p TMA in good position. No evidence of compartment syndrome. Const alert, oriented x3 and no apparent distress General Appearance: cooperative Weight / BMI Weight Weight: 108.409 kg Body Mass Index (BMI) 80.3 ABG / Lab / Microbiology Data Result Diagrams: 11/04/22 04:39 11/04/22 04:39 Laboratory: Laboratory Results - last 24 hr 11/05/22 04:31: C-React Prot Ext Range 5.83 H 11/05/22 12:50: POC Glucose 285 H 11/05/22 14:40: Vancomycin Trough 18.4 H Microbiology: Microbiology 11/01/22 14:13 Amputation - Toe Gram Stain - Final 11/01/22 14:13 Amputation - Toe Wound Culture - Final Staphylococcus epidermidis Enterobacter cloacae complex 11/01/22 14:13 Amputation - Toe Anaerobic Culture - Final No anaerobic bacteria isolated. 11/01/22 14:40 Incision/Surgical Site Gram Stain - Final 11/01/22 14:40 Incision/Surgical Site Wound Culture - Final Staphylococcus epidermidis 11/01/22 14:40 Incision/Surgical Site Anaerobic Culture - Preliminary No growth in 48 hours. 11/01/22 09:50 Blood Culture (Wb) - Left Hand Blood Culture - Preliminary No growth in 48 hours. 11/01/22 09:49 Blood Culture (Wb) - Anticubital Left Bacteria Detection (PCR) - Final Coag Negative Staph 11/01/22 09:49 Blood Culture (Wb) - Anticubital Left Blood Culture - Preliminary Coag Negative Staph 11/01/22 11:30 Nasal Secretion SARS-CoV-2 Antigen (Rapid) - Final D/C Instructions Discharge Diet: No restrictions Discharge Activity: May Shower (May shower with cast bag covering of the left lower extremity. Please keep dressings clean, dry, and intact to the left foot.) and Use Walker (Strict nonweightbearing status to the left lower extremity with use of knee scooter) Weight Bearing Status: No weight bearing (Strict nonweightbearing status to the left lower extremity with use of knee scooter) Keep extremity elevated above heart level: Left Leg (The left lower extremity at all times for postoperative edema control) Call your doctor if you observe: Fever of 101 or Higher, Chest pain, Calf discomfort and Uncontrolled pain Change Dressing in: do not change dressing (Will change dressings at first postoperative visit) Remove Dressing in: leave in place till F/U (Physician will change dressings at first postoperative visit) Cleanse incision/area with: Do not get Incision Wet and Keep Dressing Clean & Dry Please Follow Up With: Mayo Levy DPM When: 3 to 5 days Meaningful Use Info Meaningful Use Diagnoses (Choose all that apply): None applicable Discharge Plan Admission Admit Date/Time: 11/01/22 10:57 Attending Provider: Mayo Levy Primary Care Provider: Zaida Mcneil Consulting Providers: Delmy Billy ; Amy Ureña ; William Hayes ; Kerrie Henderson ; Awa Martínez ; Vivian Garrison NP ; John Funes NP ; Faviola Josue ; Satish Nava Discharge Orders/Prescriptions Prescriptions: New doxycycline hyclate 100 mg capsule 100 mg PO BID Qty: 14 0RF ciprofloxacin HCl [Cipro] 500 mg tablet 500 mg PO BID Qty: 14 0RF Continued sulfamethoxazole-trimethoprim 400-80 mg tablet 1 tablet PO DAILY Label Comments: TAKE 1 TABLET BY MOUTHTONCE DAILY No Action insulin glargine 100 unit/mL (3 mL) insulin pen 44 unit SC DAILY losartan 25 mg tablet 25 mg PO DAILY Label Comments: TAKE 1 TABLET BY MOUTHAONCE DAILYE insulin lispro 100 UNIT/ML insulin pen 16 unit SQ TID Protocol: 6. Sliding Scale Insulin Custom Condition: mg/dl range Dose/Route: Number of Units Protocol Text: Custom Sliding Scale Rx Instructions: 20u for breakfast and dinner 16u for lunch prednisone 5 mg Tablet 5 mg PO DAILY pantoprazole [Protonix] 20 mg Tablet,Delayed Release (Dr/Ec) 20 mg PO DAILY docusate sodium [Colace] 100 mg Capsule 100 mg PO DAILY Envarsus XR 1 mg tablet extended release 24 hr 1 mg PO DAILY carvedilol 25 mg Tablet 25 mg PO BID cholecalciferol (vitamin D3) [Vitamin D3] 25 mcg (1,000 unit) Capsule 50 mcg PO FR acetaminophen 500 mg Tablet 1,000 mg PO Q4H PRN (Reason: Pain) aspirin [Aspirin Low-Strength] 81 mg Tablet,Chewable 81 mg PO DAILY gabapentin 100 mg capsule 100 mg PO QHS Label Comments: TAKE 1 CAPSULE BY MOUTH AT BEDTIME bupropion HCl 300 mg tablet extended release 24 hr 300 mg PO DAILY Label Comments: TAKE 1 TABLET BY MOUTH ONCE DAILY Referrals / Follow Up: Zaida Mcneil MD [Primary Care Provider] - Disposition Disposition (needs filled in before D/C Order can be placed): Home, Self Care
--- NOTE | 2022-11-05 19:09 | PCM.DC ---
Discharge Instructions Diet Discharge Diet: No restrictions Activity Discharge Activity: May Shower (Cover left lower extremity with cast bag and keep dressings clean, dry, and intact to the left lower extremity.) and Use Walker (Patient to use knee scooter to remain compliant with nonweightbearing status to the left lower extremity) Weight Bearing Status: No weight bearing (To remain nonweightbearing to the left lower extremity with use of knee scooter) Keep extremity elevated above heart level: Left Leg (Elevate left lower extremity at all times of rest for continued postoperative edema control.) Dressing / Incision Call your doctor if you observe: Fever of 101 or Higher, Chest pain, Calf discomfort and Uncontrolled pain Change Dressing in: do not change dressing (Physician will change dressings at first postoperative visit) Remove Dressing in: leave in place till F/U (Physician will change dressings at first postoperative visit) Cleanse incision/area with: Do not get Incision Wet and Keep Dressing Clean & Dry (To left lower extremity) Follow Up Care Please Follow Up With: Mayo Levy DPM When: 3-5 days Test Results: Test results from this visit will be discussed in further detail at your follow-up appointment, if applicable. Discharge Plan Admission Admit Date/Time: 11/01/22 10:57 Attending Provider: Mayo Levy Primary Care Provider: Zaida Mcneil Consulting Providers: Delmy Billy ; Amy Ureña ; William Hayes ; Kerrie Henderson ; Awa Martínez ; Vivian Garrison NP ; John Funes [employer] ; Faviola Josue ; Satish Nava Discharge Orders/Prescriptions Prescriptions: New doxycycline hyclate 100 mg capsule 100 mg PO BID Qty: 14 0RF ciprofloxacin HCl [Cipro] 500 mg tablet 500 mg PO BID Qty: 14 0RF Continued sulfamethoxazole-trimethoprim 400-80 mg tablet 1 tablet PO DAILY Label Comments: TAKE 1 TABLET BY MOUTHTONCE DAILY No Action insulin glargine 100 unit/mL (3 mL) insulin pen 44 unit SC DAILY losartan 25 mg tablet 25 mg PO DAILY Label Comments: TAKE 1 TABLET BY MOUTHAONCE DAILYE insulin lispro 100 UNIT/ML insulin pen 16 unit SQ TID Protocol: 6. Sliding Scale Insulin Custom Condition: mg/dl range Dose/Route: Number of Units Protocol Text: Custom Sliding Scale Rx Instructions: 20u for breakfast and dinner 16u for lunch prednisone 5 mg Tablet 5 mg PO DAILY pantoprazole [Protonix] 20 mg Tablet,Delayed Release (Dr/Ec) 20 mg PO DAILY docusate sodium [Colace] 100 mg Capsule 100 mg PO DAILY Envarsus XR 1 mg tablet extended release 24 hr 1 mg PO DAILY carvedilol 25 mg Tablet 25 mg PO BID cholecalciferol (vitamin D3) [Vitamin D3] 25 mcg (1,000 unit) Capsule 50 mcg PO FR acetaminophen 500 mg Tablet 1,000 mg PO Q4H PRN (Reason: Pain) aspirin [Aspirin Low-Strength] 81 mg Tablet,Chewable 81 mg PO DAILY gabapentin 100 mg capsule 100 mg PO QHS Label Comments: TAKE 1 CAPSULE BY MOUTH AT BEDTIME bupropion HCl 300 mg tablet extended release 24 hr 300 mg PO DAILY Label Comments: TAKE 1 TABLET BY MOUTH ONCE DAILY Referrals / Follow Up: Zaida Mcneil MD [Primary Care Provider] - Disposition Disposition (needs filled in before D/C Order can be placed): Home, Self Care
[2022-11-05 20:03] VITALS: BP 147/75; PULSE 86; RESP 16; TEMP 36.9; O2SAT 98
== END 2022-11-05 20:06 | disposition home or self-care (01) | DRG 617 ==
LOC: ED 10:13 → SDC 10:25 → AC 10:26 → SDC 14:34 → MS3 14:34
PROVIDERS: Family Medicine; Podiatrist; Student in an Organized Health Care Education/Training Program; Admitting Provider Podiatrist; Emergency Provider Emergency Medicine; PCP Internal Medicine; Visit Provider Podiatrist
PROC: 0Y6N0Z9 Detachment at Left Foot, Partial 1st Ray, Open Approach (ICD-10-PCS; principal; 2022-11-01 11:45)
DX: E11.69 Type 2 diabetes mellitus with other specified complication (principal); M86.172 Other acute osteomyelitis, left ankle and foot; I13.2 Hypertensive heart and chronic kidney disease with heart failure and with stage 5 chronic kidney disease, or end stage renal disease; I50.32 Chronic diastolic (congestive) heart failure; L03.116 Cellulitis of left lower limb; L02.612 Cutaneous abscess of left foot; Z94.0 Kidney transplant status; N18.6 End stage renal disease; D63.1 Anemia in chronic kidney disease; E11.22 Type 2 diabetes mellitus with diabetic chronic kidney disease; E11.628 Type 2 diabetes mellitus with other skin complications; L97.524 Non-pressure chronic ulcer of other part of left foot with necrosis of bone; E11.621 Type 2 diabetes mellitus with foot ulcer; E11.51 Type 2 diabetes mellitus with diabetic peripheral angiopathy without gangrene; Z79.4 Long term (current) use of insulin; E11.42 Type 2 diabetes mellitus with diabetic polyneuropathy; Z89.422 Acquired absence of other left toe(s); E78.5 Hyperlipidemia, unspecified; I25.10 Atherosclerotic heart disease of native coronary artery without angina pectoris; F17.220 Nicotine dependence, chewing tobacco, uncomplicated; F32.A Depression, unspecified; Z79.82 Long term (current) use of aspirin; Z86.16 Personal history of COVID-19; B96.5 Pseudomonas (aeruginosa) (mallei) (pseudomallei) as the cause of diseases classified elsewhere; Z79.899 Other long term (current) drug therapy; B95.7 Other staphylococcus as the cause of diseases classified elsewhere
CPT/HCPCS: 36415; 71046; 73620; 73630; 76000; 80048; 80053; 80202; 81001; 82962; 83605; 85025; 85610; 85652; 85730; 86140; 87015; 87040; 87070; 87075; 87077; 87102; 87116; 87149; 87176; 87186; 87205; 87206; 87426; 88305; 88311; 93005; 97110; 97116; 97162; 97530; 99213; 99285; 99406; J7030; J7040; J7050; J7120; A4216; G0463; J2405

== ENCOUNTER → 2023-01-11 | Outpatient (CLI) | payer MEDICARE, MEDICAID, SELFPAY ==
[2023-01-11 10:05] LABS: Hemoglobin A1c 9.2 % (3.8-5.6)
== END | disposition home or self-care (01) ==
LOC: LAB 08:20
PROVIDERS: PCP Internal Medicine; Referring Provider Nurse Practitioner Family; Visit Provider Nurse Practitioner Family
DX: E11.65 Type 2 diabetes mellitus with hyperglycemia (principal)
CPT/HCPCS: 36415; 83036

== ENCOUNTER 2023-03-13 22:22 | Emergency (ER) | payer MEDICARE, MEDICAID, SELFPAY ==
[2023-03-13 22:22] VITALS: BP 180/89; PULSE 70; RESP 19; TEMP 35.3; O2SAT 99; BMI 33.2
--- NOTE | 2023-03-13 22:36 | EKG12_ITS ---
Test Reason : Blood Pressure : / mmHG Vent. Rate : 068 BPM Atrial Rate : 068 BPM P-R Int : 166 ms QRS Dur : 118 ms QT Int : 450 ms P-R-T Axes : 027 -38 023 degrees QTc Int : 478 ms Sinus rhythm with occasional Premature ventricular complexes Left axis deviation Minimal voltage criteria for LVH, may be normal variant ( Lane product ) Septal infarct , age undetermined Abnormal ECG Confirmed by NARGIS NORTON, NICOLLE ([id number]), editor farm journal JEANETTE MARQUEZ ([id number]) on 03/18/2023 12:54:45 P M Referred By: Confirmed By:JEAN-PAUL BARILLAS MD
--- NOTE | 2023-03-13 22:37 | EX.ED.DYSGE1 ---
HPI History of Present Illness Chief Complaint: Hypoglycemia Narrative Narrative: 52-year-old male presenting with hypoglycemia. Patient is a known diabetic who sees Dr. Durand. He has had no recent medication changes for his diabetes but states his medication was changed 2 months ago. He has history of end-stage renal disease on dialysis however 2 years ago he had a renal transplant and he has 1 solitary right kidney. He states he was sitting on the couch watching TV and he felt okay and then noticed his blood sugar was dropping. He felt this and ate some candy. He states he did not pass out. He denies any chest pain or shortness of breath during the episode. EMS stated that his blood sugar was down into the 30s and gave him D10. Blood sugar was rechecked on arrival was 129. Patient denies any other complaints right now other than some generalized weakness. He states his machine try out setter is Dr. Montiel. He states that he been eating and drinking normally. Making normal urine and stool and has not had any issues. He states he ate a hotdog macaroni and cheese for dinner. [facility] Medical History Acute hypoxemic respiratory failure Acute on chronic diastolic CHF (congestive heart failure) Acute respiratory failure with hypoxia ILDA (acute kidney injury) Anasarca associated with disorder of kidney Anemia of chronic renal failure, stage 4 (severe) Anxiety and depression Atherosclerotic heart disease of [place] coronary artery without angina pectoris Autonomic neuropathy Blind left eye Cellulitis and abscess of right leg Cellulitis of left lower limb Chewing tobacco nicotine dependence Chronic renal failure, stage 4 (severe) Chronic renal failure, stage 5 Chronic ulcer of 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 Congestive heart failure (CHF) COVID-19 COVID-19 Diabetes mellitus type II, uncontrolled Diabetic foot infection Diabetic foot ulcer Diabetic nephropathy Diabetic neuropathy Diabetic retinopathy Dyspnea Essential hypertension Fistula (~12/2018) Gas gangrene of foot GERD (gastroesophageal reflux disease) History of acute myocardial infarction History of left heart catheterization (LHC) (~06/26/11) HLD (hyperlipidemia) Hypertensive emergency Hypoglycemia Hypokalemia Hypoxemia Kidney failure Kidney stones Necrotizing fasciitis 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 exposed Noncompliance Obesity (BMI 30-39.9) Pneumonia Problem with dialysis access Pulmonary edema Respiratory failure Retention, urine Right leg pain 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 Vision problems Home Medications pantoprazole 20 mg tablet,delayed release (Protonix) 20 mg PO DAILY gerd 09/18/21 [History Last Taken 11/01/22 07:00] prednisone 5 mg tablet 5 mg PO DAILY steroid 09/18/21 [History Last Taken 11/01/22 07:00] tacrolimus 1 mg tablet,extended release 24 hr (Envarsus XR) 2 mg PO DAILY rejection med 09/18/21 [History Last Taken 03/14/23] carvedilol 25 mg tablet 25 mg PO BID HEART 12/26/21 [History Last Taken 11/01/22 07:00] cholecalciferol (vitamin D3) 25 mcg (1,000 unit) capsule (Vitamin D3) 50 mcg PO FR SUPPLEMENT' 12/26/21 [History Last Taken 10/26/22] losartan 25 mg tablet 25 mg PO DAILY BP 09/05/22 [History Last Taken 11/01/22 07:00] sulfamethoxazole 400 mg-trimethoprim 80 mg tablet 1 tablet PO DAILY INFECTION 09/05/22 [History Last Taken 11/01/22 07:00] acetaminophen 500 mg tablet 1,000 mg PO Q4H PRN Pain 11/01/22 [History Last Taken 10/31/22] aspirin 81 mg chewable tablet 81 mg PO DAILY HEALTH 11/01/22 [History Last Taken 11/01/22 07:00] bupropion HCl 300 mg 24 hr tablet, extended release 375 mg PO DAILY MOOD 11/01/22 [History Last Taken 03/13/23] gabapentin 100 mg capsule 100 mg PO QHS NERVE PAIN 11/01/22 [History Last Taken 10/31/22] docusate sodium 100 mg capsule (Colace) 100 mg PO DAILY PRN constipation 01/14/23 [History Last Taken Unknown] atenolol 100 mg tablet 100 mg PO DAILY 03/14/23 [History Last Taken Unknown] insulin lispro protamine-lispro 100 unit/mL (50-50) subcutaneous pen (Humalog Mix 50-50 KwikPen) 30 unit subcut DAILY 03/14/23 [History Last Taken 03/14/23] insulin lispro protamine-lispro 100 unit/mL (50-50) subcutaneous pen (Humalog Mix 50-50 KwikPen) 40 unit subcut 0800,1800 03/14/23 [History Last Taken 03/14/23] Allergy/AdvReac Type Severity Reaction Status Date / Time No Known Allergies Allergy Verified 03/13/23 22:26 Family History Mother Heart disease Hypertension Father Cancer Brother Cancer Diabetes Sister Diabetes Other Alcohol abuse Depression H/O transfusion of whole blood Kidney disease Surgical History History of appendectomy History of arteriovenostomy for renal dialysis (~08/2018) History of artificial lens replacement History of cholecystectomy History of eye surgery Kidney replaced by transplant Renal transplant recipient Status post insertion of dialysis catheter (~08/2018) Social History household members: spouse Smoking Status: Never smoker second hand exposure: No alcohol intake: never substance use type: does not use caffeine: No what type of physical activity do you participate in: none ROS ROS ED Constitutional Constitutional ED: Denies chills, fever(s) or sweats Eyes Eyes: Denies blurry vision or change in vision ENT ENT ED: Denies ear pain or sore throat Cardiovascular Cardiovascular: Denies chest pain, palpitations or racing heartbeat Respiratory/Chest Respiratory/Chest: Denies cough, dyspnea or sputum Gastrointestinal Gastrointestinal: Denies abdominal pain, constipation, diarrhea, nausea or vomiting Genitourinary Genitourinary ED: Denies dysuria, hematuria or urinary frequency Musculoskeletal Musculoskeletal: Denies arthralgias, myalgias or neck pain Integumentary Denies abscess, Abrasions or rash Neurologic Neurologic: Denies headache(s), paresthesias or weakness Psychiatric Psychiatric: Denies anxiety, depression, suicidal ideation or suicidal thoughts Endocrine Endocrinology: Denies polydipsia or polyuria EXAM Physical Exam Const Vital Signs: 03/13/23 22:22 03/13/23 22:28 03/13/23 23:34 Temperature 95.6 F L Temperature Source Temporal Pulse Rate 70 70 Respiratory Rate 19 H 15 Respiratory Effort Normal Non-Labored Blood Pressure 180/89 H 143/73 H Blood Pressure Mean 119 96 Pulse Ox 99 97 Oxygen Delivery Method Room Air Room Air Oxygen Flow Rate (L/min) 03/14/23 01:00 03/14/23 03:49 Temperature Temperature Source Pulse Rate 75 69 Respiratory Rate 17 181 H Respiratory Effort Blood Pressure 119/67 130/74 H Blood Pressure Mean 84 92 Pulse Ox 97 Oxygen Delivery Method Room Air Room Air Oxygen Flow Rate (L/min) 97 General Appearance ED: NAD; Negative for pallor HEENT Reports moist mucous membranes Eyes PERRL and EOMs intact bilaterally General Eye ED: Negative for pale conjunctiva Chest Wall inspection of chest normal Resp normal respiratory effort and clear to auscultation bilaterally Auscultation: Negative for rales, rhonchi or wheezes Cardio regular rate and regular rhythm GI normal to inspection, nondistended, normoactive bowel sounds Extremity normal to inspection Neuro oriented x3 and CN's II-XII intact bilaterally Sensorium / Orientation: alert Motor Exam: strength 5/5 throughout Psych mental status grossly normal Skin no rashes or lesions noted and no wounds General Skin Exam: Negative for jaundice or pallor MDM MDM MDM Narrative Medical decision making narrative: Patient presenting with hypoglycemia. He states he has not had any new med changes. He states that typically he can eat candy or control his blood sugar by eating something but this was not helping today. He had received D10 by EMS and has remained awake since. CBC was obtained to assess white blood cell count, hemoglobin, platelets, differential. CMP to assess renal function, liver function, electrolytes, glucose, anion gap. Urinalysis to assess for UTI. I did obtain an EKG, chest x-ray, high-sensitivity troponin due to the patient being diaphoretic and mildly altered on arrival. EKG shows a normal sinus rhythm with a ventricular rate of 68 bpm with evidence of LVH on my interpretation. There are PVCs as well. High-sensitivity troponin is 9. CBC does not show a leukocytosis. Hemoglobin hematocrit are stable. Platelets are normal. CMP shows fairly normal liver function. Creatinine is elevated at 1.92 and GFR is 39. Patient initially given a liter of normal saline. It does look like he has history of CHF so I will start him heart rate 150 cc/h. Urinalysis shows positive nitrites, 0-5, WBC, no squamous epithelial cells, small bacteria. Chest x-ray on my interpretation shows no acute process. Radiologist interprets this and agrees. Patient's blood sugars today have continued to go down. He was initially given D10 before arrival and his blood pressure went from 1 29-72 while he was here. After eating it is gone up to as high as 140 but is now dropped down to 129. Given the acute kidney injury and continuously dropping blood sugars discussed with hospitalist for admission however this felt to not require admission per the hospitalist. I did speak with Dr. Montiel from nephrology who had seen him in the past and states she typically will manage his care in the hospital. She states she follows with the transplant team at [facility] typically on an outpatient basis. She did feel would be reasonable to observe him given the low blood sugars and acute kidney injury. We will discuss this case with the transplant team given he has 1 kidney. Discussed with the transplant team and they recommended weekly lab work as an outpatient. He has an appointment April 10 at 2:20 PM[address] I spoke with Dr[address] Link. He stated that he wanted to have some special lab work done at [facility] of [facility] on Saturday that has to be done there because it specialized in the only place where they can do it. After this he can get his blood work drawn at any [facility] facility for the next 4 weeks. He recommended following up with endocrinology on an outpatient basis today to see what medications he would like to adjust or change. Patient was amenable to this. He has been here most of the evening getting IV fluids and he feels well. His sugars have not dropped again. Return precautions are discussed at length. Impression: 1. Acute on chronic kidney disease 2. Hypoglycemia Lab Data Attestation: I reviewed the patient's lab results. Labs: Laboratory Results - last 24 hr 03/13/23 03/13/23 03/13/23 03:14 22:32 22:36 WBC 7.3 RBC 5.10 Hgb 15.9 Hct 47.5 MCV 93.1 MCH 31.2 MCHC 33.5 RDW Std Deviation 43.1 RDW Coeff of Tomy 12.5 Plt Count 205 MPV 9.8 Immature Gran % (Auto) 0.300 Neut % (Auto) 67.1 Lymph % (Auto) 22.5 [place] % (Auto) 9.0 Eos % (Auto) 0.8 Baso % (Auto) 0.3 Absolute Neuts (auto) 4.9 Absolute Lymphs (auto) 1.65 Nucleated RBC % 0 Sodium 137 Potassium 4.1 Chloride 107 Carbon Dioxide 21.0 Anion Gap 9 BUN 28 H Creatinine 1.92 H Estim Creat Clear Calc 42.55 Est GFR (MDRD) Af Amer 47 L Est GFR (MDRD) Non-Af 39 L BUN/Creatinine Ratio 14.6 Glucose 186 H Calcium 9.1 Total Bilirubin 0.50 AST 33 ALT 53 Alkaline Phosphatase 213 H Troponin I High Sens 9 Total Protein 7.4 Albumin 3.9 Globulin 3.5 Albumin/Globulin Ratio 1.1 Urine Color Yellow Urine Clarity Clear Urine pH 5.0 Ur Specific [place] 1.020 Urine Protein 30 H Urine Glucose (UA) 1000 H Urine Ketones Negative Urine Occult Blood 10 H Urine Nitrite Positive H Urine Bilirubin Negative Urine Urobilinogen 1 H Ur Leukocyte Esterase 25 H Urine RBC 0 SEEN Urine WBC 0-5 SEEN Ur Squamous Epith Cells 0 SEEN Urine Bacteria RARE Urine Mucus 0 SEEN POC Glucose 129 H 03/13/23 03/13/23 03/14/23 23:00 23:38 00:27 WBC RBC Hgb Hct MCV MCH MCHC RDW Std Deviation RDW Coeff of Tomy Plt Count MPV Immature Gran % (Auto) Neut % (Auto) Lymph % (Auto) [place] % (Auto) Eos % (Auto) Baso % (Auto) Absolute Neuts (auto) Absolute Lymphs (auto) Nucleated RBC % Sodium Potassium Chloride Carbon Dioxide Anion Gap BUN Creatinine Estim Creat Clear Calc Est GFR (MDRD) Af Amer Est GFR (MDRD) Non-Af BUN/Creatinine Ratio Glucose Calcium Total Bilirubin AST ALT Alkaline Phosphatase Troponin I High Sens Total Protein Albumin Globulin Albumin/Globulin Ratio Urine Color Urine Clarity Urine pH Ur Specific [place] Urine Protein Urine Glucose (UA) Urine Ketones Urine Occult Blood Urine Nitrite Urine Bilirubin Urine Urobilinogen Ur Leukocyte Esterase Urine RBC Urine WBC Ur Squamous Epith Cells Urine Bacteria Urine Mucus POC Glucose 120 H 103 72 L 03/14/23 03/14/23 03/14/23 01:19 02:32 03:06 WBC RBC Hgb Hct MCV MCH MCHC RDW Std Deviation RDW Coeff of Tomy Plt Count MPV Immature Gran % (Auto) Neut % (Auto) Lymph % (Auto) [place] % (Auto) Eos % (Auto) Baso % (Auto) Absolute Neuts (auto) Absolute Lymphs (auto) Nucleated RBC % Sodium Potassium Chloride Carbon Dioxide Anion Gap BUN Creatinine Estim Creat Clear Calc Est GFR (MDRD) Af Amer Est GFR (MDRD) Non-Af BUN/Creatinine Ratio Glucose Calcium Total Bilirubin AST ALT Alkaline Phosphatase Troponin I High Sens Total Protein Albumin Globulin Albumin/Globulin Ratio Urine Color Urine Clarity Urine pH Ur Specific [place] Urine Protein Urine Glucose (UA) Urine Ketones Urine Occult Blood Urine Nitrite Urine Bilirubin Urine Urobilinogen Ur Leukocyte Esterase Urine RBC Urine WBC Ur Squamous Epith Cells Urine Bacteria Urine Mucus POC Glucose 117 H 134 H 131 H 03/14/23 03/14/23 03:47 04:28 WBC RBC Hgb Hct MCV MCH MCHC RDW Std Deviation RDW Coeff of Tomy Plt Count MPV Immature Gran % (Auto) Neut % (Auto) Lymph % (Auto) [place] % (Auto) Eos % (Auto) Baso % (Auto) Absolute Neuts (auto) Absolute Lymphs (auto) Nucleated RBC % Sodium Potassium Chloride Carbon Dioxide Anion Gap BUN Creatinine Estim Creat Clear Calc Est GFR (MDRD) Af Amer Est GFR (MDRD) Non-Af BUN/Creatinine Ratio Glucose Calcium Total Bilirubin AST ALT Alkaline Phosphatase Troponin I High Sens Total Protein Albumin Globulin Albumin/Globulin Ratio Urine Color Urine Clarity Urine pH Ur Specific [place] Urine Protein Urine Glucose (UA) Urine Ketones Urine Occult Blood Urine Nitrite Urine Bilirubin Urine Urobilinogen Ur Leukocyte Esterase Urine RBC Urine WBC Ur Squamous Epith Cells Urine Bacteria Urine Mucus POC Glucose 140 H 129 H Radiography Diagnostic Testing: Clinical Impression(s) from Imaging Studies Chest X-Ray 03/13/23 22:46 IMPRESSION: Normal x-ray examination of the chest. Electronically Signed: Karl Wilson MD at 23:05 EDT , Discharge Plan Triage Chief Complaint: Hypoglycemia ED Provider: Loi Saldana Dx/Rx/DC Orders Instructions: ED Chronic Kidney Disease (CKD), ED Diabetic Insulin Reaction Prescriptions: No Action losartan 25 mg tablet 25 mg PO DAILY Patient Comments: TAKE 1 TABLET BY MOUTHAONCE DAILYE sulfamethoxazole-trimethoprim 400-80 mg tablet 1 tablet PO DAILY Patient Comments: TAKE 1 TABLET BY MOUTHTONCE DAILY prednisone 5 mg Tablet 5 mg PO DAILY Hold Instructions: pantoprazole [Protonix] 20 mg Tablet,Delayed Release (Dr/Ec) 20 mg PO DAILY Envarsus XR 1 mg tablet extended release 24 hr 2 mg PO DAILY docusate sodium [Colace] 100 mg capsule 100 mg PO DAILY PRN (Reason: constipation) carvedilol 25 mg Tablet 25 mg PO BID Hold Instructions: cholecalciferol (vitamin D3) [Vitamin D3] 25 mcg (1,000 unit) Capsule 50 mcg PO FR acetaminophen 500 mg Tablet 1,000 mg PO Q4H PRN (Reason: Pain) aspirin [Aspirin Low-Strength] 81 mg Tablet,Chewable 81 mg PO DAILY Hold Instructions: Ordered gabapentin 100 mg capsule 100 mg PO QHS Patient Comments: TAKE 1 CAPSULE BY MOUTH AT BEDTIME bupropion HCl 300 mg tablet extended release 24 hr 375 mg PO DAILY Patient Comments: TAKE 1 TABLET BY MOUTH ONCE DAILY Humalog Mix 50-50 KwikPen 100 unit/mL (50-50) insulin pen 30 unit subcut DAILY atenolol 100 mg tablet 100 mg PO DAILY Humalog Mix 50-50 KwikPen 100 unit/mL (50-50) insulin pen 40 unit subcut 0800,1800 Primary Care Provider: Zaida Mcneil Referrals: Zaida Mcneil MD [Primary Care Provider] - Disposition Disposition: Home, Self Care
[2023-03-13] MEDS: 0.9% Normal Saline 1,000 ML 1000 ML IV (22:45)
--- NOTE | 2023-03-13 22:46 | RAD_ITS ---
STUDY: X-RAY CHEST REASON FOR EXAM: Male, 52 years old. weakness TECHNIQUE: Single AP portable view of the chest. COMPARISON: None. FINDINGS: The lungs are clear and expanded. There is no demonstrated pleural abnormality. Normal size heart. Normal mediastinum and reena. Normal visualized pulmonary arteries. Normal visualized aortic arch and descending thoracic aorta. Normal visualized thoracic spine. Normal visualized ribs, clavicles, and shoulders. There is no demonstrated abnormality of the visualized soft tissue structures of the upper abdomen. RAD/Chest 1 View (Portable) IMPRESSION: Normal x-ray examination of the chest. Electronically Signed: Karl Wilson MD at 23:05 EDT ,
[2023-03-13 23:01] LABS: Absolute Lymphocyte Count 1.65 X10^3/uL (0.83-4.51); Absolute Neutrophil Count 4.9 X10^3/uL (2.0-7.7); Basophil# 0.02 X10^3/uL; Basophil% 0.3 % (0-1); Eosinophil# 0.06 X10^3/uL; Eosinophils% 0.8 % (0-5); Hematocrit 47.5 % (40-54); Hemoglobin 15.9 g/dL (13.0-16.5); Lymphocyte # 1.65 X10^3/ul (0.83-4.51); Lymphocyte % 22.5 % (19-41); Mean Corp Hgb Conc 33.5 g/dL (32-36); Mean Corpuscular Hgb 31.2 pg (27.0-32.0); Mean Corpuscular Volume 93.1 fL (80-94); Mean Platelet Vol. 9.8 fl (6.2-12.0); Monocyte# 0.66 X10^3/uL; NRBC Flagged by Analyzer 0 % (0-5); Neutrophil # 4.92 X10^3/uL (2.7-7.7); Neutrophil % 67.1 % (47-70); Platelet Count 205 K/mm3 (150-450); RBC Distribution Width CV 12.5 % (11.6-14.6); RBC Distribution Width SD 43.1 fl (35.1-43.9); White Blood Count 7.3 K/mm3 (4.4-11.0)
[2023-03-13 23:02] LABS: ALB/GLOB Ratio 1.1 RATIO (0.9-2.4); AST(SGOT) 33 U/L (15-37); Alanine Aminotransfer ALT/SGPT 53 U/L (16-61); Albumin, Serum 3.9 g/dL (3.2-5.0); Alkaline Phosphatase 213 U/L (45-117); Anion Gap 9 (5-15); BUN 28 mg/dL (7-18); BUN/Creat Ratio 14.6 RATIO (10-20); Calcium,Total 9.1 mg/dL (8.5-10.1); Chloride 107 mmol/L (98-107); Creatinine, Serum 1.92 mg/dL (0.70-1.30); EST Glomerular Filtration Rate 39 mL/min (>60); Est Glom Filt Rate - Afr Amer 47 mL/min (>60); Estimated Creatinine Clearance 42.55 ml/min; Globulin 3.5 g/dL (2.2-4.2); Glucose 186 mg/dL (74-106); Potassium 4.1 mmol/L (3.5-5.1); Protein, Total 7.4 g/dL (6.4-8.2); Sodium Level 137 mmol/L (136-145); Troponin-I HS 9 pg/mL (3.0-78.0)
[2023-03-13] MEDS: Acetaminophen 500 MG Tablet 1000 MG PO (23:05)
[2023-03-13 23:18] LABS: Bedside Glucose 129 mg/dL (74-106)
[2023-03-13 23:18] LABS: Mucous, Urine 0 SEEN /hpf (<or=2+); Red Blood Cells-Urine 0 SEEN /hpf (0-5); Squamous Epithelial Cells - UA 0 SEEN /hpf (0-5)
[2023-03-13 23:19] LABS: Bedside Glucose 120 mg/dL (74-106)
[2023-03-13 23:20] LABS: Color, Urine Yellow (Yellow); Glucose, Dipstick 1000 mg/dl (Normal); Ketone-Dipstick Negative (Negative); Leukocyte Esterase-Dipstick 25 /ul (Negative); Nitrite-Dipstick Positive (Negative); Occult Blood-Urine 10 /ul (Negative); Protein-Dipstick 30 mg/dl (Negative); Urine Bilirubin Dipstick Negative (Negative); Urine Clarity Clear (Clear); Urine Urobilinogen 1 mg/dl (Normal)
[2023-03-13 23:34] VITALS: BP 143/73; PULSE 70; RESP 15; O2SAT 97
[2023-03-13 23:40] LABS: Bacteria RARE /hpf (None Seen); White Blood Cells 0-5 SEEN /hpf (0-5)
[2023-03-13 23:55] LABS: Bedside Glucose 103 mg/dL (74-106)
[2023-03-14 00:54] LABS: Bedside Glucose 72 mg/dL (74-106)
[2023-03-14 01:00] VITALS: BP 119/67; PULSE 75; RESP 17; O2SAT 97
[2023-03-14 01:38] LABS: Bedside Glucose 117 mg/dL (74-106)
[2023-03-14] MEDS: 0.9% Normal Saline 1,000 ML 150 ML IV (02:50)
[2023-03-14 02:52] LABS: Bedside Glucose 134 mg/dL (74-106)
[2023-03-14 03:25] LABS: Bedside Glucose 131 mg/dL (74-106)
[2023-03-14 03:49] VITALS: BP 130/74; PULSE 69; RESP 181
[2023-03-14 04:06] LABS: Bedside Glucose 140 mg/dL (74-106)
[2023-03-14 04:45] LABS: Bedside Glucose 129 mg/dL (74-106)
[2023-03-14 07:00] VITALS: RESP 16
[2023-03-14 07:35] LABS: Bedside Glucose 139 mg/dL (74-106)
== END 2023-03-14 07:22 | disposition home or self-care (01) ==
PROVIDERS: Emergency Provider Student in an Organized Health Care Education/Training Program; PCP Internal Medicine; Visit Provider Student in an Organized Health Care Education/Training Program
DX: N17.9 Acute kidney failure, unspecified (principal); I13.2 Hypertensive heart and chronic kidney disease with heart failure and with stage 5 chronic kidney disease, or end stage renal disease; I50.9 Heart failure, unspecified; E11.42 Type 2 diabetes mellitus with diabetic polyneuropathy; E11.649 Type 2 diabetes mellitus with hypoglycemia without coma; E11.22 Type 2 diabetes mellitus with diabetic chronic kidney disease; N18.6 End stage renal disease; E78.5 Hyperlipidemia, unspecified; I25.10 Atherosclerotic heart disease of native coronary artery without angina pectoris; I49.3 Ventricular premature depolarization
CPT/HCPCS: 71045; 80053; 81001; 82962; 84484; 85025; 87086; 87088; 93005; 96360; 96361; 99285; J7030; A4216

== ENCOUNTER → 2024-01-03 | Outpatient (CLI) | payer MEDICARE, MEDICAID, SELFPAY ==
[2024-01-03 09:26] LABS: ALB/GLOB Ratio 1.1 RATIO (0.9-2.4); AST(SGOT) 45 U/L (15-37); Alanine Aminotransfer ALT/SGPT 124 U/L (16-61); Albumin, Serum 3.7 g/dL (3.2-5.0); Alkaline Phosphatase 208 U/L (45-117); Anion Gap 4 (5-15); BUN 21 mg/dL (7-18); BUN/Creat Ratio 14.8 RATIO (10-20); Calcium,Total 9.1 mg/dL (8.5-10.1); Chloride 110 mmol/L (98-107); Cholesterol 168 mg/dL (200); Creatinine, Serum 1.42 mg/dL (0.70-1.30); EST Glomerular Filtration Rate 55 mL/min (>60); Est Glom Filt Rate - Afr Amer 67 mL/min (>60); Globulin 3.5 g/dL (2.2-4.2); Glucose 239 mg/dL (74-106); High Density Lipoprotein 51 mg/dL; Potassium 4.9 mmol/L (3.5-5.1); Protein, Total 7.2 g/dL (6.4-8.2); Sodium Level 138 mmol/L (136-145); Thyroid Stim Hormone (TSH) 0.78 uIU/mL (0.358-3.74); Triglycerides 119 mg/dL; Very Low Density Lipoprotein 24 mg/dL (5-40)
[2024-01-03 15:25] LABS: Microalbumin,Random Urine 14.1 mg/L (NO RANGE EST.); Microalbumin:Creatinine Ratio 21.2 mg/g CRE (<30 mg/g CRE)
== END | disposition home or self-care (01) ==
LOC: LAB 08:08
PROVIDERS: PCP Internal Medicine; Referring Provider Nurse Practitioner Family; Visit Provider Nurse Practitioner Family
DX: E11.65 Type 2 diabetes mellitus with hyperglycemia (principal); N18.4 Chronic kidney disease, stage 4 (severe); Z79.4 Long term (current) use of insulin; E11.42 Type 2 diabetes mellitus with diabetic polyneuropathy; E11.22 Type 2 diabetes mellitus with diabetic chronic kidney disease; I25.2 Old myocardial infarction
CPT/HCPCS: 36415; 80053; 80061; 82043; 82306; 82570; 84443

== ENCOUNTER → 2024-01-14 | Outpatient (CLI) | payer MEDICARE, MEDICAID, SELFPAY ==
--- NOTE | 2024-01-14 07:10 | US_ITS ---
STUDY: ABDOMINAL ULTRASOUND - RIGHT UPPER QUADRANT REASON FOR VISIT: Male, 53 years old elevated liver enzymes TECHNIQUE: Ultrasound evaluation of the right upper quadrant was performed with real-time and static beck-scale imaging. TECHNICAL QUALITY: Adequate. COMPARISON: None. FINDINGS: Liver: The liver measures 15.5 cm. There is normal echogenicity of the liver. The bile ducts are within normal limits. There is hepatic color flow. The direction of portal flow is hepatopetal. There is no demonstrated mass lesion. Gallbladder: The patient is status post cholecystectomy. Common Bile Duct (C.B.D.): The common bile duct measures 7 mm. Pancreas: Normal size of the head, body and tail of the pancreas. There is normal echogenicity of the pancreas. There is no demonstrated pancreatic mass or cyst. Right Kidney: There is atrophy of the douglas right kidney. The right kidney measures 8.3 cm x 4.8 cm x 4.7 cm. There is thinning of the renal cortex. The right cortex measures 0.7 cm. There is no demonstrated renal mass or cyst. There is no right hydronephrosis. 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 It measures 13.5 cm x 4.5 cm x 5.9 cm. The renal cortex measures 1.9 cm. US/Liver IMPRESSION: Normal right upper quadrant ultrasound examination. Status post cholecystectomy. Electronically Signed: Tristan France MD at 10:00 EDT ,
== END | disposition home or self-care (01) ==
LOC: US 07:09
PROVIDERS: PCP Internal Medicine; Referring Provider Nurse Practitioner Family; Visit Provider Nurse Practitioner Family
DX: R74.8 Abnormal levels of other serum enzymes (principal)
CPT/HCPCS: 76705

== ENCOUNTER 2024-11-19 14:19 | Emergency (ER) | payer MEDICARE, MEDICAID, SELFPAY ==
[2024-11-19 14:20] VITALS: BP 136/85; PULSE 118; RESP 13; TEMP 36.9; O2SAT 97; BMI 28.5
--- NOTE | 2024-11-19 15:09 | EKG12_ITS ---
Test Reason : CP Blood Pressure : */* mmHG Vent. Rate : 121 BPM Atrial Rate : 121 BPM P-R Int : 182 ms QRS Dur : 92 ms QT Int : 314 ms P-R-T Axes : 21 -61 51 degrees QTcB Int : 445 ms Sinus tachycardia with Fusion complexes Left anterior fascicular block Left ventricular hypertrophy ( Lane product , Romhilt-Rogers ) Anteroseptal infarct Abnormal ECG Confirmed by NARGIS NORTON, NICOLLE ([id number]), magazine editor JEANETTE MARQUEZ ([id number]) on 11/23/2024 10:57:26 AM Referred By: Yony Yadav Confirmed By: NICOLLE BARILLAS MD
--- NOTE | 2024-11-19 15:11 | EX.ED.DYSGE1 ---
HPI History of Present Illness Chief Complaint: Dizziness Informant: patient and EMS Narrative Narrative: Brought in by EMS, patient called reporting about dizziness feeling of drunkenness at noon while walking. No headache. No recent upper respiratory sinus symptoms. No cough no vomiting or diarrhea. He is a transplant patient with his kidneys 4 years ago on immunosuppressants. He is followed by [facility]. He has not had similar symptoms in the past. However states currently symptoms are subsiding. Diabetic hypertension history that led to his kidney failure. He is making normal urine output no dysuria. He states he does have increasing stress last 2 months with his significant other leaving him. Prior similar symptoms: No PFSH PFSH Medical History Congestive heart failure (CHF) Diabetic foot ulcer Gas gangrene of foot Necrotizing fasciitis Diabetic foot infection Type 2 diabetes mellitus with diabetic polyneuropathy 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 exposed Vision loss of left eye Respiratory failure Hypoxemia COVID-19 COVID-19 Type 2 diabetes mellitus with diabetic polyneuropathy Cellulitis of left lower limb Pulmonary edema Dyspnea Fistula (~12/2018) History of left heart catheterization (LHC) (~06/26/11) Atherosclerotic heart disease of [place] coronary artery without angina pectoris Essential hypertension Problem with dialysis access Chronic renal failure, stage 5 Vision problems Pneumonia Kidney stones Kidney failure Anasarca associated with disorder of kidney Autonomic neuropathy Hypoglycemia Acute hypoxemic respiratory failure Acute on chronic diastolic CHF (congestive heart failure) Retention, urine Obesity (BMI 30-39.9) Acute respiratory failure with hypoxia Hypokalemia Noncompliance Diabetic neuropathy Diabetic nephropathy Diabetic retinopathy ILDA (acute kidney injury) Hypertensive emergency Chewing tobacco nicotine dependence GERD (gastroesophageal reflux disease) Anxiety and depression Diabetes mellitus type II, uncontrolled Blind left eye HLD (hyperlipidemia) Right leg pain Chronic ulcer of 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 Cellulitis and abscess of right leg History of acute myocardial infarction Home Medications ?Medication ?Instructions ?Recorded ?Last Taken ?Type pantoprazole 20 mg tablet,delayed 20 mg PO DAILY gerd 09/18/21 11/01/22 07:00 History release (Protonix) prednisone 5 mg tablet 5 mg PO DAILY steroid 09/18/21 11/01/22 07:00 History tacrolimus 1 mg tablet,extended 2 mg PO DAILY rejection med 09/18/21 03/14/23 History release 24 hr (Envarsus XR) cholecalciferol (vitamin D3) 25 50 mcg PO FR SUPPLEMENT' 12/26/21 10/26/22 History mcg (1,000 unit) capsule (Vitamin D3) losartan 25 mg tablet 25 mg PO DAILY BP 09/05/22 11/01/22 07:00 History acetaminophen 500 mg tablet 1,000 mg PO Q4H PRN Pain 11/01/22 10/31/22 History aspirin 81 mg chewable tablet 81 mg PO DAILY HEALTH 11/01/22 11/01/22 07:00 History gabapentin 100 mg capsule 100 mg PO QHS NERVE PAIN 11/01/22 10/31/22 History docusate sodium 100 mg capsule 100 mg PO DAILY PRN constipation 01/14/23 Unknown History (Colace) atenolol 100 mg tablet 100 mg PO DAILY 03/14/23 Unknown History bupropion HCl 75 mg tablet 75 mg PO .QID 03/24/24 Unknown History fluoxetine 10 mg capsule 10 mg PO QDAY PRN 03/24/24 Unknown History insulin lispro protamine-lispro See Rx Instructions subcut .tid 03/30/24 Unknown Rx 100 unit/mL (50-50) subcutaneous with meals #42 mL pen (Humalog Mix 50-50 KwikPen) Trulicity 4.5 mg/0.5 mL 4.5 mg (0.5 mL) subcut QWEEK #6 mL 07/17/24 Unknown Rx subcutaneous pen injector (dulaglutide) metoclopramide HCl 5 mg tablet 5 mg PO Q6H PRN vertigo #10 tabs 11/19/24 Unknown Rx (Reglan) Allergy/AdvReac Type Severity Reaction Status Date / Time No Known Allergies Allergy Verified 11/19/24 14:23 Family History Mother Heart disease Hypertension Father Cancer Brother Cancer Diabetes Sister Diabetes Other Alcohol abuse Depression H/O transfusion of whole blood Kidney disease Surgical History Renal transplant recipient Kidney replaced by transplant History of artificial lens replacement History of arteriovenostomy for renal dialysis (~08/2018) Status post insertion of dialysis catheter (~08/2018) History of appendectomy History of eye surgery History of cholecystectomy Social History household members: spouse Smoking Status: Never smoker second hand exposure: No alcohol intake: never substance use type: does not use caffeine: No what type of physical activity do you participate in: none ROS ROS ED Constitutional Constitutional ED: Denies chills, fever(s) or sweats ENT ENT ED: Denies sore throat Cardiovascular Cardiovascular: Denies chest pain, leg edema, palpitations or racing heartbeat Respiratory/Chest Respiratory/Chest: Denies cough, dyspnea or dyspnea on exertion Gastrointestinal Gastrointestinal: Denies abdominal pain, diarrhea, nausea or vomiting Genitourinary Genitourinary ED: Denies dysuria, hematuria or urinary frequency Musculoskeletal Musculoskeletal: Denies back pain, extremity pain or neck pain Integumentary Denies rash or wounds Neurologic Neurologic: Reports other Details: Dizziness ; Denies headache(s), paresthesias or weakness EXAM Physical Exam Const Vital Signs: 11/19/24 14:20 11/19/24 16:19 11/19/24 17:47 Temperature 98.4 F 97.8 F Temperature Source Oral Pulse Rate 118 H 109 H 89 Respiratory Rate 13 18 Blood Pressure 136/85 H 98/67 105/72 Blood Pressure Mean 102 77 83 Pulse Ox 97 92 95 Oxygen Delivery Method Room Air Positive well nourished and well developed General Appearance ED: well developed and NAD HEENT Reports TM's clear and moist mucous membranes normocephalic and atraumatic Tympanic Membrane ED: Yes TM's clear Eyes General Eye ED: Yes normal appearance of both eyes Neck full ROM Chest Wall Chest: Negative for tenderness Resp normal respiratory effort and normal air movement Effort and Inspection: symmetric chest movement; Negative for respiratory distress Cardio regular rhythm and no murmurs Rate: tachycardic Peripheral Pulses: pulses 2+ throughout GI normal to inspection, nondistended, normoactive bowel sounds and non-tender Palpation: Negative for guarding or rebound tenderness present Extremity normal to inspection General Extremety ED: Negative for edema or tenderness General Extremity: Negative for edema Neuro oriented x3, CN's II-XII intact bilaterally and no sensory deficits noted Neuro Narrative: No focal deficit, [place] negative bilaterally. Sensorium / Orientation: awake and alert Skin no rashes or lesions noted and no wounds MDM MDM MDM Narrative Medical decision making narrative: Interventions / MDM: Differential diagnosis: Vertigo, acute on chronic renal sufficiency, renal transplant Diagnosis considered but do not suspect: No focal deficits for concerns of stroke. My EKG interpretation: Sinus tachycardia rate of 121, no ST or T wave changes. Imaging independently reviewed and interpreted by myself: N/A External documents reviewed: N/A Test considered but not ordered:N/A ED course: Patient vertigo symptoms subsided he is tachycardic. There is no focal deficits. With his renal transplant history will check labs and urine. IV fluids. IV Reglan. Will reevaluate. 1725: Labs creatinine 2.11. Creatinine range 1.4-1.9 previously. He had no vomiting diarrhea. He was given a liter of fluids. Urine has blood, patient reports has history of hematuria with his transplanted kidney. 25 leukocytes no other findings. I did send for urine culture. Will not treat at this time. Clinically is feeling better reevaluation. He was ambulating back to his normal gait. I will write for short prescription of Reglan to use as needed. Outpatient follow-up. Return precautions. All questions were answered. Re-evaluation: stable Disposition discussed with patient/family/significant other: Patient Case discussed with consulting clinician: N/A This note was generated with Zingku dictation software. It may contain incorrect words, spelling, and punctuation that were not noted in checking the note before signing. Lab Data Attestation: I reviewed the patient's lab results. Labs: Laboratory Results - last 24 hr 11/19/24 11/19/24 14:28 16:41 WBC 8.8 RBC 5.65 Hgb 17.7 H Hct 51.2 MCV 90.6 MCH 31.3 MCHC 34.6 RDW Std Deviation 39.8 RDW Coeff of Tomy 12.0 Plt Count 231 MPV 9.9 Immature Gran % (Auto) 0.300 Neut % (Auto) 77.9 H Lymph % (Auto) 11.9 L [place] % (Auto) 9.2 Eos % (Auto) 0.2 Baso % (Auto) 0.5 Absolute Neuts (auto) 6.9 Absolute Lymphs (auto) 1.05 Nucleated RBC % 0 Sodium 139 Potassium 4.9 Chloride 104 Carbon Dioxide 19.3 L Anion Gap 16 H BUN 33 H Creatinine 2.11 H Estim Creat Clear Calc 42.01 L Est GFR (MDRD) Non-Af 36 L BUN/Creatinine Ratio 15.5 Glucose 279 H Calcium 10.1 Urine Color Yellow Urine Clarity Clear Urine pH 6.0 Ur Specific [place] 1.015 Urine Protein 30 H Urine Glucose (UA) 1000 H Urine Ketones Negative Urine Occult Blood 250 H Urine Nitrite Negative Urine Bilirubin Negative Urine Urobilinogen Normal Ur Leukocyte Esterase 25 H Urine RBC 10-25 SEEN Urine WBC 0-5 SEEN Ur Squamous Epith Cells 0-5 SEEN Urine Bacteria 0 SEEN Hyaline Casts 0-5 SEEN Urine Mucus 0 SEEN Discharge Plan Triage Chief Complaint: Dizziness ED Provider: Yony Yadav Dx/Rx/DC Orders Clinical Impression: Vertigo, Renal transplant recipient, Renal insufficiency Instructions: ED Dizziness, Uncertain Cause Prescriptions: New metoclopramide HCl [Reglan] 5 mg tablet 5 mg PO Q6H PRN (Reason: vertigo ) Qty: 10 0RF No Action losartan 25 mg tablet 25 mg PO DAILY Patient Comments: TAKE 1 TABLET BY MOUTHAONCE DAILYE bupropion HCl 75 mg tablet 75 mg PO .QID fluoxetine 10 mg capsule 10 mg PO QDAY PRN prednisone 5 mg Tablet 5 mg PO DAILY pantoprazole [Protonix] 20 mg Tablet,Delayed Release (Dr/Ec) 20 mg PO DAILY Envarsus XR 1 mg tablet extended release 24 hr 2 mg PO DAILY docusate sodium [Colace] 100 mg capsule 100 mg PO DAILY PRN (Reason: constipation) cholecalciferol (vitamin D3) [Vitamin D3] 25 mcg (1,000 unit) Capsule 50 mcg PO FR acetaminophen 500 mg Tablet 1,000 mg PO Q4H PRN (Reason: Pain) aspirin [Aspirin Low-Strength] 81 mg Tablet,Chewable 81 mg PO DAILY gabapentin 100 mg capsule 100 mg PO QHS Patient Comments: TAKE 1 CAPSULE BY MOUTH AT BEDTIME atenolol 100 mg tablet 100 mg PO DAILY Humalog Mix 50-50 KwikPen 100 unit/mL (50-50) insulin pen See Rx Instructions subcut .tid with meals Qty: 42 5RF Rx Instructions: 40-40-60 units subcutaneously TID WITH MEALS; Trulicity 4.5 mg/0.5 mL pen injector 4.5 mg subcut QWEEK Qty: 6 1RF Primary Care Provider: Zaida Mcneil Referrals: Zaida Mcneil MD [Primary Care Provider] - 1 Week Activity Restrictions/Additional Instructions: Your creatinine 2.1. You are given a liter follow-up with us. Use Reglan as needed for dizziness symptoms. Follow-up your doctor recheck labs. Print Language: Sinhala Disposition Disposition: Home, Self Care Discharge Date/Time: 11/19/24 17:48
[2024-11-19] MEDS: 0.9% Normal Saline (1000mL) 1,000 ML 1000 ML IV (15:19)
[2024-11-19] MEDS: Metoclopramide 10 MG/2 ML Vial 5 MG IV (15:19)
[2024-11-19 15:23] LABS: Absolute Lymphocyte Count 1.05 X10^3/uL (0.83-4.51); Absolute Neutrophil Count 6.9 X10^3/uL (2.0-7.7); Basophil# 0.04 X10^3/uL; Basophil% 0.5 % (0-1); Eosinophil# 0.02 X10^3/uL; Eosinophils% 0.2 % (0-5); Hematocrit 51.2 % (40-54); Hemoglobin 17.7 g/dL (13.0-16.5); Lymphocyte # 1.05 X10^3/ul (0.83-4.51); Lymphocyte % 11.9 % (19-41); Mean Corp Hgb Conc 34.6 g/dL (32-36); Mean Corpuscular Hgb 31.3 pg (27.0-32.0); Mean Corpuscular Volume 90.6 fL (80-94); Mean Platelet Vol. 9.9 fl (6.2-12.0); Monocyte# 0.81 X10^3/uL; Monocyte% 9.2 % (0-10); NRBC Flagged by Analyzer 0 % (0-5); Neutrophil # 6.86 X10^3/uL (2.7-7.7); Neutrophil % 77.9 % (47-70); Platelet Count 231 K/mm3 (150-450); RBC Distribution Width SD 39.8 fl (35.1-43.9); Red Blood Count 5.65 M/mm3 (4.6-6.2); White Blood Count 8.8 K/mm3 (4.4-11.0)
[2024-11-19 15:40] LABS: Anion Gap 16 (5-15); BUN 33 mg/dL (4-19); BUN/Creat Ratio 15.5 RATIO (10-20); Calcium,Total 10.1 mg/dL (7.6-11.0); Carbon Dioxide 19.3 mmol/L (21.0-32.0); Chloride 104 mmol/L (98-108); Creatinine, Serum 2.11 mg/dL (0.70-1.20); EST Glomerular Filtration Rate 36 (>60); Estimated Creatinine Clearance 42.01 ml/min (50-250); Glucose 279 mg/dL (70-99); Potassium 4.9 mmol/L (3.3-5.1); Sodium Level 139 mmol/L (133-145)
[2024-11-19 16:19] VITALS: BP 98/67; PULSE 109; O2SAT 92
[2024-11-19 16:47] LABS: Bacteria 0 SEEN /hpf (None Seen); Mucous, Urine 0 SEEN /hpf (<or=2+)
[2024-11-19 16:48] LABS: Color, Urine Yellow (Yellow); Glucose, Dipstick 1000 mg/dl (Normal); Ketone-Dipstick Negative (Negative); Leukocyte Esterase-Dipstick 25 /ul (Negative); Nitrite-Dipstick Negative (Negative); Occult Blood-Urine 250 /ul (Negative); Protein-Dipstick 30 mg/dl (Negative); Specific Gravity, Urine 1.015 (1.002-1.030); Urine Bilirubin Dipstick Negative (Negative); Urine Clarity Clear (Clear); Urine Urobilinogen Normal (Normal)
--- NOTE | 2024-11-19 17:11 | ED.RN ---
Pt. ambulated per baseline, normally uses a cane but walked holding onto wall rails.
[2024-11-19 17:13] LABS: Hyaline Cast 0-5 SEEN /lpf (0-5); Red Blood Cells-Urine 10-25 SEEN /hpf (0-5); Squamous Epithelial Cells - UA 0-5 SEEN /hpf (0-5); White Blood Cells 0-5 SEEN /hpf (0-5)
[2024-11-19 17:47] VITALS: BP 105/72; PULSE 89; RESP 18; TEMP 36.6; O2SAT 95
== END 2024-11-19 17:48 | disposition home or self-care (01) ==
PROVIDERS: Emergency Provider Emergency Medicine; PCP Internal Medicine; Referring Provider Emergency Medicine; Visit Provider Emergency Medicine
DX: R42 Dizziness and giddiness (principal); E11.22 Type 2 diabetes mellitus with diabetic chronic kidney disease; E11.42 Type 2 diabetes mellitus with diabetic polyneuropathy; I25.10 Atherosclerotic heart disease of native coronary artery without angina pectoris; N28.9 Disorder of kidney and ureter, unspecified; E78.5 Hyperlipidemia, unspecified; Z86.16 Personal history of COVID-19; Z94.0 Kidney transplant status; Z90.49 Acquired absence of other specified parts of digestive tract; I25.2 Old myocardial infarction
CPT/HCPCS: 80048; 81001; 85025; 87086; 87088; 93005; 99285; A4216

== ENCOUNTER 2025-01-26 15:46 | Emergency (ER) | payer MEDICARE, MEDICAID, SELFPAY ==
[2025-01-26 15:47] VITALS: BP 106/64; PULSE 76; RESP 18; TEMP 37; O2SAT 95
[2025-01-26 15:50] VITALS: BMI 29.0
[2025-01-26 16:11] LABS: Absolute Lymphocyte Count 0.56 X10^3/uL (0.83-4.51); Absolute Neutrophil Count 8.1 X10^3/uL (2.0-7.7); Basophil# 0.02 X10^3/uL; Basophil% 0.2 % (0-1); Hematocrit 37.1 % (40-54); Hemoglobin 12.9 g/dL (13.0-16.5); Lymphocyte # 0.56 X10^3/ul (0.83-4.51); Lymphocyte % 5.9 % (19-41); Mean Corp Hgb Conc 34.8 g/dL (32-36); Mean Corpuscular Hgb 31.2 pg (27.0-32.0); Mean Corpuscular Volume 89.6 fL (80-94); Mean Platelet Vol. 9.9 fl (6.2-12.0); Monocyte# 0.78 X10^3/uL; Monocyte% 8.2 % (0-10); NRBC Flagged by Analyzer 0 % (0-5); Neutrophil # 8.07 X10^3/uL (2.7-7.7); Neutrophil % 85.2 % (47-70); POSITIVE DIFFERENTIAL YES; Platelet Count 168 K/mm3 (150-450); RBC Distribution Width CV 11.7 % (11.6-14.6); Red Blood Count 4.14 M/mm3 (4.6-6.2); White Blood Count 9.5 K/mm3 (4.4-11.0)
[2025-01-26 16:33] LABS: BETA-HYDROXYBUTYRATE 0.7 mmol/L (0.0-0.3)
--- NOTE | 2025-01-26 16:40 | CT_ITS ---
PROCEDURE: ABDOMEN/PELVIS WITHOUT CONT 01/26/2025 REASON FOR EXAM: RIGHT SIDE ABD PAIN TECHNIQUE: Abdomen and pelvis CT without intravenous contrast. Noncontrast technique limits evaluation of the abdominal and pelvic viscera. Coronal and Sagittal reconstruction series were provided. One or more dose reduction techniques were used (e.g., Automated exposure control, adjustment of the mA and/or kV according to patient size, use of iterative reconstruction technique). COMPARISON: None. FINDINGS: Mild anasarca. Lung bases: Clear Liver: Normal size. No obvious mass. Gallbladder: Surgically absent. Spleen: Normal size. Pancreas: Normal size. No surrounding inflammation. Adrenals: Normal. Kidneys: Severely atrophic [place] kidneys. Right pelvic transplanted kidney transplanted right kidney ureter 10 mm calculus with severe upstream hydroureteronephrosis. Transplant kidney perinephric stranding which may represent back pressure. Bladder: Markedly concentrically thickened wall. Reproductive Organs: Unremarkable Bowel: Appendix: Lymph nodes: Vasculature: Peritoneum / Retroperitoneum: Mild atherosclerosis. Small volume ascites. Bones: CT/Abdomen/Pelvis without Cont IMPRESSION: 1. Transplanted right kidney obstructing ureteral calculus with [id number] ere upstream hydroureteronephrosis. 2. Severely thickened urinary bladder wall suspicious for cystitis. 3. Severely atrophic [place] kidneys. 4. Anasarca. 5. Small volume ascites. OVERALL FINAL ASSESSMENT: . LI-RADS is not meant to be used in patients <18 years or patients with cirrhosi s due to congenital hepatic fibrosis or due to vascular disorders, because these patients have a lower chance of developing HC C. Reading Location: [place] [id number]
--- NOTE | 2025-01-26 16:40 | EKG12_ITS ---
Test Reason : SOB Blood Pressure : */* mmHG Vent. Rate : 71 BPM Atrial Rate : 71 BPM P-R Int : 228 ms QRS Dur : 128 ms QT Int : 434 ms P-R-T Axes : 38 -40 9 degrees QTcB Int : 471 ms Sinus rhythm with 1st degree A-V block Left axis deviation Non-specific intra-ventricular conduction block Minimal voltage criteria for LVH, may be normal variant ( [place] product ) Cannot rule out Septal infarct Abnormal ECG Confirmed by IBRAHIMA NORTON, MITCHELL ([id number]), business editor JEANETTE MARQUEZ ([id number]) on 01/27/2025 10:36:28 AM Referred By: Confirmed By: MITCHELL ALEXANDRA MD
--- NOTE | 2025-01-26 16:41 | EX.ED.DYSGE1 ---
HPI History of Present Illness Chief Complaint: Hyperglycemia Informant: patient Narrative Narrative: Brought in by EMS from the retirement I day history weakness dizziness. He is renal transplant recipient with diabetes history. He states sugars usually run 180s on insulin sliding scale only 50 units for breakfast 30 units for lunch and 50 units for dinner. He last ate breakfast and gave himself insulin then. Dealing with right side abdominal pain for last couple weeks. Nausea without vomiting. No diarrhea. Appendectomy in the past. Also had a cough for last 2 weeks. No urine frequency increasing thirst. He is followed by [facility] transplant, he states he is taking his medications. He has been in the retirement for 4 months. Blood glucose 583 by EMS. [facility] Medical History Congestive heart failure (CHF) Diabetic foot ulcer Gas gangrene of foot Necrotizing fasciitis Diabetic foot infection Type 2 diabetes mellitus with diabetic polyneuropathy 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 exposed Vision loss of left eye Respiratory failure Hypoxemia COVID-19 COVID-19 Type 2 diabetes mellitus with diabetic polyneuropathy Cellulitis of left lower limb Pulmonary edema Dyspnea Fistula (~12/2018) History of left heart catheterization (LHC) (~06/26/11) Atherosclerotic heart disease of [place] coronary artery without angina pectoris Essential hypertension Problem with dialysis access Chronic renal failure, stage 5 Vision problems Pneumonia Kidney stones Kidney failure Anasarca associated with disorder of kidney Autonomic neuropathy Hypoglycemia Acute hypoxemic respiratory failure Acute on chronic diastolic CHF (congestive heart failure) Retention, urine Obesity (BMI 30-39.9) Acute respiratory failure with hypoxia Hypokalemia Noncompliance Diabetic neuropathy Diabetic nephropathy Diabetic retinopathy ILDA (acute kidney injury) Hypertensive emergency Chewing tobacco nicotine dependence GERD (gastroesophageal reflux disease) Anxiety and depression Diabetes mellitus type II, uncontrolled Blind left eye HLD (hyperlipidemia) Right leg pain Chronic ulcer of 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 Cellulitis and abscess of right leg History of acute myocardial infarction Home Medications ?Medication ?Instructions ?Recorded ?Last Taken ?Type pantoprazole 20 mg tablet,delayed 20 mg PO DAILY gerd 09/18/21 01/26/25 History release (Protonix) prednisone 5 mg tablet 5 mg PO DAILY steroid 09/18/21 01/26/25 History tacrolimus 1 mg tablet,extended 1 mg PO DAILY rejection med 09/18/21 01/26/25 History release 24 hr (Envarsus XR) cholecalciferol (vitamin D3) 25 25 mcg PO FR SUPPLEMENT' 12/26/21 01/22/25 History mcg (1,000 unit) capsule (Vitamin D3) losartan 25 mg tablet 25 mg PO DAILY BP 09/05/22 01/26/25 History acetaminophen 500 mg tablet 500 mg PO Q4H PRN Pain 11/01/22 10/31/22 History aspirin 81 mg chewable tablet 81 mg PO DAILY HEALTH 11/01/22 01/26/25 History gabapentin 100 mg capsule 100 mg PO QHS NERVE PAIN 11/01/22 01/24/25 History atenolol 100 mg tablet 100 mg PO DAILY 03/14/23 01/26/25 History bupropion HCl 75 mg tablet 75 mg PO DAILY 03/24/24 01/26/25 History fluoxetine 10 mg capsule 10 mg PO DAILY 03/24/24 Unknown History insulin lispro protamine-lispro See Rx Instructions subcut .tid 03/30/24 Unknown Rx 100 unit/mL (50-50) subcutaneous with meals #42 mL pen (Humalog Mix 50-50 KwikPen) Trulicity 4.5 mg/0.5 mL 4.5 mg (0.5 mL) subcut QWEEK #6 mL 07/17/24 01/21/25 Rx subcutaneous pen injector (dulaglutide) metoclopramide HCl 5 mg tablet 5 mg PO Q6H PRN vertigo #10 tabs 11/19/24 01/26/25 Rx (Reglan) bupropion HCl 300 mg 24 hr tablet, 300 mg PO DAILY 01/26/25 Unknown History extended release carvedilol 25 mg tablet 25 mg PO BID 01/26/25 Unknown History mycophenolate sodium 180 mg 360 mg PO BID 01/26/25 Unknown History tablet,delayed release sulfamethoxazole 400 1 tab PO MOWEFR 01/26/25 Unknown History mg-trimethoprim 80 mg tablet Allergy/AdvReac Type Severity Reaction Status Date / Time No Known Allergies Allergy Verified 01/26/25 15:47 Family History Mother Heart disease Hypertension Father Cancer Brother Cancer Diabetes Sister Diabetes Other Alcohol abuse Depression H/O transfusion of whole blood Kidney disease Surgical History Renal transplant recipient Kidney replaced by transplant History of artificial lens replacement History of arteriovenostomy for renal dialysis (~08/2018) Status post insertion of dialysis catheter (~08/2018) History of appendectomy History of eye surgery History of cholecystectomy Social History household members: spouse Smoking Status: Never smoker second hand exposure: No alcohol intake: never substance use type: does not use caffeine: No what type of physical activity do you participate in: none ROS ROS ED Constitutional Constitutional ED: Denies chills, fever(s) or sweats ENT ENT ED: Denies sore throat Cardiovascular Cardiovascular: Denies chest pain, leg edema, palpitations or racing heartbeat Respiratory/Chest Respiratory/Chest: Reports cough; Denies dyspnea or dyspnea on exertion Gastrointestinal Gastrointestinal: Reports abdominal pain and nausea; Denies diarrhea or vomiting Genitourinary Genitourinary ED: Denies dysuria, hematuria or urinary frequency Musculoskeletal Musculoskeletal: Denies back pain, extremity pain or neck pain Integumentary Denies rash or wounds Neurologic Neurologic: Reports weakness and other Details: Lightheaded ; Denies headache(s) or paresthesias EXAM Physical Exam Const Vital Signs: 01/26/25 15:47 01/26/25 16:28 01/26/25 17:46 Temperature 98.6 F Temperature Source Oral Pulse Rate 76 73 Respiratory Rate 18 14 Respiratory Effort Normal Respiratory Pattern Normal Blood Pressure 106/64 99/62 Blood Pressure Mean 78 74 Pulse Ox 95 Oxygen Delivery Method Room Air 01/26/25 19:00 01/26/25 20:59 01/26/25 23:00 Temperature Temperature Source Pulse Rate 73 70 68 Respiratory Rate 13 15 Respiratory Effort Respiratory Pattern Blood Pressure 108/68 102/65 91/60 Blood Pressure Mean 81 77 70 Pulse Ox Oxygen Delivery Method Room Air 01/27/25 01:00 01/27/25 02:58 01/27/25 02:59 Temperature 98.6 F 98.6 F Temperature Source Oral Pulse Rate 67 70 70 Respiratory Rate 17 17 17 Respiratory Effort Respiratory Pattern Blood Pressure 84/58 L 89/63 L 89/63 L Blood Pressure Mean 66 71 71 Pulse Ox 97 97 97 Oxygen Delivery Method Room Air Room Air Positive well nourished and well developed General Appearance ED: well developed and NAD HEENT HEENT Narrative: Dry mucosal membranes normocephalic and atraumatic Eyes General Eye ED: Yes normal appearance of both eyes Neck full ROM Chest Wall Chest: Negative for tenderness Resp normal respiratory effort and normal air movement Effort and Inspection: symmetric chest movement; Negative for respiratory distress Cardio regular rate, regular rhythm and no murmurs Peripheral Pulses: pulses 2+ throughout GI normal to inspection, nondistended, normoactive bowel sounds GI Narrative: Tender right side lateral to umbilicus. Palpation: Negative for guarding or rebound tenderness present Extremity normal to inspection General Extremety ED: Negative for edema or tenderness General Extremity: Negative for edema Neuro oriented x3 and no sensory deficits noted Sensorium / Orientation: awake and alert Skin no rashes or lesions noted and no wounds MDM MDM MDM Narrative Medical decision making narrative: Interventions / MDM: Differential diagnosis: Diabetic ketoacidosis, acute kidney injury, renal transplant recipient, obstructive kidney stone in transplanted kidney Diagnosis considered but do not suspect: No clinical sepsis. Pneumonia however x-ray negative. My EKG interpretation: Sinus rate of 71 first-degree AV block, no peaked T waves. No ST changes. T wave version lead III nonspecific. QTc 471. Imaging independently reviewed and interpreted by myself: 2 view chest x-ray: No acute process. CT abdomen/pelvis: Obstructive 10 mm kidney stone in transplanted kidney. External documents reviewed: N/A Test considered but not ordered:N/A ED course: Patient dry mucosal membranes vital signs stable. Glucose by EMS 583. Nursing protocol initiated labs for DKA rule out. Will give fluids will add lipase and liver enzymes. Will check chest x-ray with his cough. CT abdomen pelvis due to his right sided pain. Urine ordered. Zofran ordered for symptoms. 1700: Creatinine returned at 10.3, 2 months ago was 2.1. Potassium 5.7 no EKG changes. Gap 17 slightly elevated with beta hydroxy B thyroid of 0.7. Sodium 118. Fluids are running I will start insulin drip. He is a transplant patient, will likely need transfer. 0: I spoke with [facility] transfer line with beverage steward Dr. Multani, discussed patient DKA with acute kidney injury. Pending CT of the abdomen at this time. He is excepted to the ICU waiting for bed. 0: CT abdomen pelvis notes obstructive urolithiasis of his transplanted kidneys 10 mm which is located in the right side. Likely has pain for last 2 weeks. He reported that there was a kidney stone in his transplanted kidneys that was known 4 years ago. Urine cath was placed nursing reports minimal urine output enough to send to the lab. 2004: Urine with 25 leukocytes 10-25 WBCs. Urine culture sent I will cover him with IV Rocephin. This information was relayed up to [facility] to be relayed to patient beverage steward by staff. 2300: I rediscussed with transfer line and spoke with Carey, I discussed importance of needing transfer as he has an obstructive stone on his transplanted kidney that can lead to kidney failure. Facility with no capabilities for intervention on the transplanted kidney here. I discussed possibility of ER to ER transfer. She states she will page out to beverage steward to rediscuss. 0000: Recheck BMP, patient creatinine down to 7.2 potassium 3.0 glucose was 225 confirmed with glucose fingerstick by nursing. Calcium 5.6. Insulin drip was cut in half per protocol. I will start D5 normal saline with 20 mill equivalents of potassium at 150 cc/h. Anion gap is closed at 13. I will recheck beta hydroxybutyrate and if negative will start Lantus 20 units. Drip can be stopped an hour after Lantus if negative beta hydroxy. 0030: Patient signed out to night physician. Re-evaluation: stable Disposition discussed with patient/family/significant other: Patient Case discussed with consulting clinician: [facility] beverage steward This note was generated with [employer] dictation software. It may contain incorrect words, spelling, and punctuation that were not noted in checking the note before signing. Lab Data Attestation: I reviewed the patient's lab results. Labs: Laboratory Results - last 24 hr 01/26/25 01/26/25 01/26/25 16:00 17:34 18:51 WBC 9.5 RBC 4.14 L Hgb 12.9 L Hct 37.1 L MCV 89.6 MCH 31.2 MCHC 34.8 RDW Std Deviation 38.0 RDW Coeff of Tomy 11.7 Plt Count 168 MPV 9.9 Immature Gran % (Auto) 0.500 Neut % (Auto) 85.2 H Lymph % (Auto) 5.9 L [place] % (Auto) 8.2 Eos % (Auto) 0.0 Baso % (Auto) 0.2 Absolute Neuts (auto) 8.1 H Absolute Lymphs (auto) 0.56 L Nucleated RBC % 0 Sodium 118 L* Potassium 5.7 H Chloride 83 L Carbon Dioxide 17.6 L Anion Gap 17 H BUN 90 H Creatinine 10.30 H* Estim Creat Clear Calc 8.57 L* Est GFR (MDRD) Non-Af 5 L BUN/Creatinine Ratio 8.7 L Glucose 838 H* Calcium 8.5 Total Bilirubin 0.58 Direct Bilirubin 0.30 AST 9 ALT 12 Alkaline Phosphatase 120 Total Protein 5.7 L Albumin 3.0 L Globulin 2.7 Lipase 48 b-Hydroxybutyric mmol/L 0.7 Urine Color Urine Clarity Urine pH Ur Specific [place] Urine Protein Urine Glucose (UA) Urine Ketones Urine Occult Blood Urine Nitrite Urine Bilirubin Urine Urobilinogen Ur Leukocyte Esterase Urine RBC Urine WBC Ur Squamous Epith Cells Amorphous Sediment Urine Bacteria Urine Mucus POC Glucose > 500 H* > 500 H* 01/26/25 01/26/25 01/26/25 18:57 18:58 19:06 WBC RBC Hgb Hct MCV MCH MCHC RDW Std Deviation RDW Coeff of Tomy Plt Count MPV Immature Gran % (Auto) Neut % (Auto) Lymph % (Auto) [place] % (Auto) Eos % (Auto) Baso % (Auto) Absolute Neuts (auto) Absolute Lymphs (auto) Nucleated RBC % Sodium 121 L Potassium 4.8 Chloride 90 L Carbon Dioxide 14.3 L Anion Gap 17 H BUN 85 H Creatinine 9.55 H* Estim Creat Clear Calc 9.25 L* Est GFR (MDRD) Non-Af 6 L BUN/Creatinine Ratio 8.9 L Glucose 699 H* 699 H* Calcium 7.5 L Total Bilirubin Direct Bilirubin AST ALT Alkaline Phosphatase Total Protein Albumin Globulin Lipase b-Hydroxybutyric mmol/L Urine Color Yellow Urine Clarity Sl. Cloudy Urine pH 6.0 Ur Specific [place] 1.015 Urine Protein 30 H Urine Glucose (UA) 1000 H Urine Ketones Negative Urine Occult Blood 250 H Urine Nitrite Negative Urine Bilirubin Negative Urine Urobilinogen Normal Ur Leukocyte Esterase 25 H Urine RBC 5-10 SEEN Urine WBC 10-25 SEEN Ur Squamous Epith Cells 0 SEEN Amorphous Sediment 1+ Urine Bacteria 0 SEEN Urine Mucus 0 SEEN POC Glucose 01/26/25 01/26/25 01/26/25 20:55 22:55 23:46 WBC RBC Hgb Hct MCV MCH MCHC RDW Std Deviation RDW Coeff of Tomy Plt Count MPV Immature Gran % (Auto) Neut % (Auto) Lymph % (Auto) [place] % (Auto) Eos % (Auto) Baso % (Auto) Absolute Neuts (auto) Absolute Lymphs (auto) Nucleated RBC % Sodium 117 L* 133 Potassium 4.3 3.0 L Chloride 79 L 108 Carbon Dioxide 13.8 L 13.1 L Anion Gap 25 H 13 BUN 80 H 68 H Creatinine 8.95 H* 7.23 H Estim Creat Clear Calc 9.87 L* 12.21 L Est GFR (MDRD) Non-Af 6 L 8 L BUN/Creatinine Ratio 8.9 L 9.4 L Glucose 877 H* 225 H Calcium 7.0 L 5.6 L* Total Bilirubin Direct Bilirubin AST ALT Alkaline Phosphatase Total Protein Albumin Globulin Lipase b-Hydroxybutyric mmol/L Urine Color Urine Clarity Urine pH Ur Specific [place] Urine Protein Urine Glucose (UA) Urine Ketones Urine Occult Blood Urine Nitrite Urine Bilirubin Urine Urobilinogen Ur Leukocyte Esterase Urine RBC Urine WBC Ur Squamous Epith Cells Amorphous Sediment Urine Bacteria Urine Mucus POC Glucose 200 H 01/27/25 01/27/25 01/27/25 00:24 00:27 01:00 WBC RBC Hgb Hct MCV MCH MCHC RDW Std Deviation RDW Coeff of Tomy Plt Count MPV Immature Gran % (Auto) Neut % (Auto) Lymph % (Auto) [place] % (Auto) Eos % (Auto) Baso % (Auto) Absolute Neuts (auto) Absolute Lymphs (auto) Nucleated RBC % Sodium Cancelled Potassium Cancelled Chloride Cancelled Carbon Dioxide Cancelled Anion Gap Cancelled BUN Cancelled Creatinine Cancelled Estim Creat Clear Calc Cancelled Est GFR (MDRD) Non-Af Cancelled BUN/Creatinine Ratio Cancelled Glucose Cancelled Calcium Cancelled Total Bilirubin Direct Bilirubin AST ALT Alkaline Phosphatase Total Protein Albumin Globulin Lipase b-Hydroxybutyric mmol/L 0.0 Urine Color Urine Clarity Urine pH Ur Specific [place] Urine Protein Urine Glucose (UA) Urine Ketones Urine Occult Blood Urine Nitrite Urine Bilirubin Urine Urobilinogen Ur Leukocyte Esterase Urine RBC Urine WBC Ur Squamous Epith Cells Amorphous Sediment Urine Bacteria Urine Mucus POC Glucose 168 H 01/27/25 01/27/25 01/27/25 01:21 01:40 02:53 WBC RBC Hgb Hct MCV MCH MCHC RDW Std Deviation RDW Coeff of Tomy Plt Count MPV Immature Gran % (Auto) Neut % (Auto) Lymph % (Auto) [place] % (Auto) Eos % (Auto) Baso % (Auto) Absolute Neuts (auto) Absolute Lymphs (auto) Nucleated RBC % Sodium 126 L Potassium 4.6 Chloride 94 L Carbon Dioxide 16.7 L Anion Gap 16 H BUN 90 H Creatinine 10.50 H* Estim Creat Clear Calc 8.41 L* Est GFR (MDRD) Non-Af 5 L BUN/Creatinine Ratio 8.5 L Glucose 116 H Calcium 8.2 Total Bilirubin Direct Bilirubin AST ALT Alkaline Phosphatase Total Protein Albumin Globulin Lipase b-Hydroxybutyric mmol/L Urine Color Urine Clarity Urine pH Ur Specific [place] Urine Protein Urine Glucose (UA) Urine Ketones Urine Occult Blood Urine Nitrite Urine Bilirubin Urine Urobilinogen Ur Leukocyte Esterase Urine RBC Urine WBC Ur Squamous Epith Cells Amorphous Sediment Urine Bacteria Urine Mucus POC Glucose 145 H 128 H 01/27/25 03:43 WBC RBC Hgb Hct MCV MCH MCHC RDW Std Deviation RDW Coeff of Tomy Plt Count MPV Immature Gran % (Auto) Neut % (Auto) Lymph % (Auto) [place] % (Auto) Eos % (Auto) Baso % (Auto) Absolute Neuts (auto) Absolute Lymphs (auto) Nucleated RBC % Sodium Potassium Chloride Carbon Dioxide Anion Gap BUN Creatinine Estim Creat Clear Calc Est GFR (MDRD) Non-Af BUN/Creatinine Ratio Glucose Calcium Total Bilirubin Direct Bilirubin AST ALT Alkaline Phosphatase Total Protein Albumin Globulin Lipase b-Hydroxybutyric mmol/L Urine Color Urine Clarity Urine pH Ur Specific [place] Urine Protein Urine Glucose (UA) Urine Ketones Urine Occult Blood Urine Nitrite Urine Bilirubin Urine Urobilinogen Ur Leukocyte Esterase Urine RBC Urine WBC Ur Squamous Epith Cells Amorphous Sediment Urine Bacteria Urine Mucus POC Glucose 127 H ABG Data ABG results: ABG 01/26/25 18:53 Specimen Type ANTHONY Sample Site Not entered VBG pH 7.27 L VBG pO2 35 VBG HCO3 17 L VBG Total CO2 18 L VBG O2 Sat (Calc) 61 VBG Base Excess -10 L POC Mix VBG pCO2 Pt Tmp 36.2 L O2 Delivery Device Room Air Radiography Diagnostic Testing: Clinical Impression(s) from Imaging Studies Abdomen/Pelvis CT 01/26/25 16:40 IMPRESSION: 1. Transplanted right kidney obstructing ureteral calculus with [id number] upstream hydroureteronephrosis. 2. Severely thickened urinary bladder wall suspicious for cystitis. 3. Severely atrophic [place] kidneys. 4. Anasarca. 5. Small volume ascites. OVERALL FINAL ASSESSMENT: . LI-RADS is not meant to be used in patients <18 years or patients with cirrhosis due to congenital hepatic fibrosis or due to vascular disorders, because these patients have a lower chance of developing HCC. Reading Location: [id number] Chest X-Ray 01/26/25 18:22 IMPRESSION: NO ACUTE FINDINGS. Reading Location: [id number] Critical Care Time Critical Care Time: Yes Critical care time (excluding procedures): 30-74 minutes, Discussing w/Patient &/or Family/Component Technician, Discussing w/Consultants, Arranging Admission or Transfer, Performing Direct Patient Care at Bedside and - (45 minutes) Discharge Plan Triage Chief Complaint: Hyperglycemia ED Provider: Yony Yadav Dx/Rx/DC Orders Clinical Impression: DKA (diabetic ketoacidosis), Renal transplant recipient, ILDA (acute kidney injury), Urinary tract obstruction by kidney stone, UTI (urinary tract infection), Hyponatremia Prescriptions: No Action losartan 25 mg tablet 25 mg PO DAILY bupropion HCl 75 mg tablet 75 mg PO DAILY fluoxetine 10 mg capsule 10 mg PO DAILY prednisone 5 mg Tablet 5 mg PO DAILY pantoprazole [Protonix] 20 mg Tablet,Delayed Release (Dr/Ec) 20 mg PO DAILY Envarsus XR 1 mg tablet extended release 24 hr 1 mg PO DAILY cholecalciferol (vitamin D3) [Vitamin D3] 25 mcg (1,000 unit) Capsule 25 mcg PO FR acetaminophen 500 mg Tablet 500 mg PO Q4H PRN (Reason: Pain) aspirin [Aspirin Low-Strength] 81 mg Tablet,Chewable 81 mg PO DAILY gabapentin 100 mg capsule 100 mg PO QHS atenolol 100 mg tablet 100 mg PO DAILY carvedilol 25 mg tablet 25 mg PO BID sulfamethoxazole-trimethoprim 400-80 mg tablet 1 tab PO MOWEFR mycophenolate sodium 180 mg tablet,delayed release (DR/EC) 360 mg PO BID bupropion HCl 300 mg tablet extended release 24 hr 300 mg PO DAILY metoclopramide HCl [Reglan] 5 mg tablet 5 mg PO Q6H PRN (Reason: vertigo ) Qty: 10 0RF Humalog Mix 50-50 KwikPen 100 unit/mL (50-50) insulin pen See Rx Instructions subcut .tid with meals Qty: 42 5RF Rx Instructions: 40-40-60 units subcutaneously TID WITH MEALS; Trulicity 4.5 mg/0.5 mL pen injector 4.5 mg subcut QWEEK Qty: 6 1RF Patient Comments: PT TAKES ON THURSDAYS Primary Care Provider: Zaida Mcneil Referrals: Zaida Mcneil MD [Primary Care Provider] - Print Language: Nepali Disposition Disposition: DC/Tx to Another Type of HCF Discharge Date/Time: 01/27/25 03:49
[2025-01-26 16:48] LABS: Anion Gap 17 (5-15); BUN 90 mg/dL (4-19); BUN/Creat Ratio 8.7 RATIO (10-20); Calcium,Total 8.5 mg/dL (7.6-11.0); Carbon Dioxide 17.6 mmol/L (21.0-32.0); Chloride 83 mmol/L (98-108); EST Glomerular Filtration Rate 5 (>60); Estimated Creatinine Clearance 8.57 ml/min (50-250); Glucose 838 mg/dL (70-99); Potassium 5.7 mmol/L (3.3-5.1); Sodium Level 118 mmol/L (133-145)
--- NOTE | 2025-01-26 16:49 | ED.RN ---
Critical Creatinine of 10.3, Glucose 838, Sodium of 118. Dr. Yadav notified.
[2025-01-26] MEDS: 0.9% Normal Saline (1000mL) 1,000 ML 1000 ML IV (16:59)
[2025-01-26] MEDS: Ondansetron 4 MG/2 ML Vial IV (17:00)
[2025-01-26] MEDS: 0.9% Normal Saline (1000mL) 1,000 ML 999 ML IV (17:36)
[2025-01-26] MEDS: Insulin Lispro 100 UNIT in 0.9% Normal Saline (100mL Bag) 99 ML 8.7 UNIT CONT INF (17:36)
[2025-01-26 17:46] VITALS: BP 99/62; PULSE 73; RESP 14
[2025-01-26 18:18] LABS: Bedside Glucose > 500 mg/dL (74-106)
[2025-01-26 18:18] LABS: AST(SGOT) 9 U/L (<=37); Alanine Aminotransfer ALT/SGPT 12 U/L (<=46); Alkaline Phosphatase 120 U/L (40-129); Globulin 2.7 g/dL (2.2-4.2); Lipase 48 U/L (13-75); Protein, Total 5.7 g/dL (5.9-8.4); Total Bilirubin 0.58 mg/dL (0.00-1.30)
--- NOTE | 2025-01-26 18:22 | RAD_ITS ---
PROCEDURE: CHEST PA AND LATERAL 01/26/2025 REASON FOR EXAM: COUGH TECHNIQUE: Frontal and lateral views of the chest. COMPARISON: None. FINDINGS: Hardware: None. Heart: Heart size is mildly enlarged. Mediastinum: The mediastinal contour is unremarkable. Lungs: The lungs are clear. Bones: The bones are unremarkable. RAD/Chest PA and Lateral IMPRESSION: NO ACUTE FINDINGS. Reading Location: [place] [id number]
[2025-01-26 18:57] LABS: Blood Gas Specimen Type VEN; O2 Delivery Device Room Air; SITE Not entered; VBG BASE EXCESS -10 mmol/L (-1.0-3.5); VBG Bicarbonate 17 mmol/L (22-26); VBG PO2 35 mmHg (25-40); VBG SO2 61 % (50-70); VBG TCO2 18 mmol/L (23-33); VBG pCO2 36.2 mmHg (41-51); VBG pH 7.27 (7.32-7.42)
[2025-01-26 19:00] VITALS: BP 108/68; PULSE 73; RESP 13
[2025-01-26 19:09] LABS: Bacteria 0 SEEN /hpf (None Seen); Mucous, Urine 0 SEEN /hpf (<or=2+); Squamous Epithelial Cells - UA 0 SEEN /hpf (0-5)
[2025-01-26 19:22] LABS: Bedside Glucose > 500 mg/dL (74-106)
[2025-01-26 19:23] LABS: Color, Urine Yellow (Yellow); Glucose, Dipstick 1000 mg/dl (Normal); Ketone-Dipstick Negative (Negative); Leukocyte Esterase-Dipstick 25 /ul (Negative); Nitrite-Dipstick Negative (Negative); Occult Blood-Urine 250 /ul (Negative); Protein-Dipstick 30 mg/dl (Negative); Specific Gravity, Urine 1.015 (1.002-1.030); Urine Bilirubin Dipstick Negative (Negative); Urine Clarity Sl. Cloudy (Clear); Urine Urobilinogen Normal (Normal)
[2025-01-26 19:49] LABS: Glucose 699 mg/dL (70-99)
[2025-01-26 19:51] LABS: Red Blood Cells-Urine 5-10 SEEN /hpf (0-5); White Blood Cells 10-25 SEEN /hpf (0-5)
[2025-01-26 19:52] LABS: Amorphous Sediment 1+
[2025-01-26 20:14] LABS: Anion Gap 17 (5-15); BUN 85 mg/dL (4-19); BUN/Creat Ratio 8.9 RATIO (10-20); Calcium,Total 7.5 mg/dL (7.6-11.0); Carbon Dioxide 14.3 mmol/L (21.0-32.0); Chloride 90 mmol/L (98-108); Creatinine, Serum 9.55 mg/dL (0.70-1.20); EST Glomerular Filtration Rate 6 (>60); Estimated Creatinine Clearance 9.25 ml/min (50-250); Glucose 699 mg/dL (70-99); Potassium 4.8 mmol/L (3.3-5.1); Sodium Level 121 mmol/L (133-145)
[2025-01-26] MEDS: Ceftriaxone 1 GM/50 ML BAG IV (20:36)
[2025-01-26 20:59] VITALS: BP 102/65; PULSE 70
[2025-01-26] MEDS: 0.9% Normal Saline (1000mL) 1,000 ML 150 ML IV (21:04)
[2025-01-26 21:56] LABS: Anion Gap 25 (5-15); BUN 80 mg/dL (4-19); BUN/Creat Ratio 8.9 RATIO (10-20); Carbon Dioxide 13.8 mmol/L (21.0-32.0); Chloride 79 mmol/L (98-108); Creatinine, Serum 8.95 mg/dL (0.70-1.20); EST Glomerular Filtration Rate 6 (>60); Estimated Creatinine Clearance 9.87 ml/min (50-250); Glucose 877 mg/dL (70-99); Potassium 4.3 mmol/L (3.3-5.1); Sodium Level 117 mmol/L (133-145)
[2025-01-26 23:00] VITALS: BP 91/60; PULSE 68; RESP 15
[2025-01-26 23:42] LABS: Anion Gap 13 (5-15); BUN 68 mg/dL (4-19); BUN/Creat Ratio 9.4 RATIO (10-20); Calcium,Total 5.6 mg/dL (7.6-11.0); Carbon Dioxide 13.1 mmol/L (21.0-32.0); Chloride 108 mmol/L (98-108); Creatinine, Serum 7.23 mg/dL (0.70-1.20); EST Glomerular Filtration Rate 8 (>60); Estimated Creatinine Clearance 12.21 ml/min (50-250); Glucose 225 mg/dL (70-99); Sodium Level 133 mmol/L (133-145)
[2025-01-27 00:09] LABS: Bedside Glucose 200 mg/dL (74-106)
[2025-01-27] MEDS: KCL 20MEQ in D5.45NS 20 MEQ/1,000 ML IV.SOLN. 150 MEQ IV (00:18)
[2025-01-27 01:00] VITALS: BP 84/58; PULSE 67; RESP 17; O2SAT 97
[2025-01-27] MEDS: Insulin Glargine-YFGN 100 UNIT/ML Pen 20 UNIT SC (01:22)
[2025-01-27] MEDS: 0.9% Normal Saline (1000mL) 1,000 ML 999 ML IV (01:24)
[2025-01-27 01:52] LABS: Bedside Glucose 145 mg/dL (74-106)
[2025-01-27 01:52] LABS: Bedside Glucose 168 mg/dL (74-106)
[2025-01-27 02:23] LABS: Anion Gap 16 (5-15); BUN 90 mg/dL (4-19); BUN/Creat Ratio 8.5 RATIO (10-20); Calcium,Total 8.2 mg/dL (7.6-11.0); Carbon Dioxide 16.7 mmol/L (21.0-32.0); Chloride 94 mmol/L (98-108); EST Glomerular Filtration Rate 5 (>60); Estimated Creatinine Clearance 8.41 ml/min (50-250); Glucose 116 mg/dL (70-99); Potassium 4.6 mmol/L (3.3-5.1); Sodium Level 126 mmol/L (133-145)
--- NOTE | 2025-01-27 02:34 | ED.RN ---
Report called to Sury at [facility]
--- NOTE | 2025-01-27 02:38 | PCA ---
PT ACCEPTED TO [facility] MAIN ICU DR. MENCHACA [id number] BED 15 [facility] CCT TO DRESS DRAPER [id number]
[2025-01-27 02:58] VITALS: BP 89/63; PULSE 70; RESP 17; TEMP 37; O2SAT 97
[2025-01-27 02:59] VITALS: BP 89/63; PULSE 70; RESP 17; TEMP 37; O2SAT 97
[2025-01-27 03:13] LABS: Bedside Glucose 128 mg/dL (74-106)
[2025-01-27 04:02] LABS: Bedside Glucose 127 mg/dL (74-106)
== END 2025-01-27 03:49 | disposition other institution (70) ==
PROVIDERS: Emergency Provider Emergency Medicine; PCP Internal Medicine; Visit Provider Emergency Medicine
DX: E11.10 Type 2 diabetes mellitus with ketoacidosis without coma (principal); I13.2 Hypertensive heart and chronic kidney disease with heart failure and with stage 5 chronic kidney disease, or end stage renal disease; N18.5 Chronic kidney disease, stage 5; I50.33 Acute on chronic diastolic (congestive) heart failure; E11.65 Type 2 diabetes mellitus with hyperglycemia; E11.22 Type 2 diabetes mellitus with diabetic chronic kidney disease; E11.42 Type 2 diabetes mellitus with diabetic polyneuropathy; N17.9 Acute kidney failure, unspecified; I25.10 Atherosclerotic heart disease of native coronary artery without angina pectoris; E78.5 Hyperlipidemia, unspecified; Z82.49 Family history of ischemic heart disease and other diseases of the circulatory system; Z83.3 Family history of diabetes mellitus; N13.6 Pyonephrosis; I44.0 Atrioventricular block, first degree; Z86.16 Personal history of COVID-19; Z90.49 Acquired absence of other specified parts of digestive tract; Z94.0 Kidney transplant status; I25.2 Old myocardial infarction; R05.9 Cough, unspecified; E87.1 Hypo-osmolality and hyponatremia
CPT/HCPCS: 51702; 71046; 74176; 80048; 80076; 81001; 82010; 82803; 82947; 82962; 83690; 85025; 87086; 93005; 96361; 96365; 96375; 99285; A4216; J2405

== ENCOUNTER 2025-02-07 13:09 | Emergency (ER) | payer MEDICARE, MEDICAID, SELFPAY ==
[2025-02-07 13:09] VITALS: BP 149/72; PULSE 99; RESP 16; TEMP 36.8; O2SAT 98; BMI 26.4
--- NOTE | 2025-02-07 13:33 | EX.ED.GUMALE ---
HPI History of Present Illness Chief Complaint: Complaint Detail of Chief Complaint: Leaking urostomy bag Informant: patient Narrative Narrative: Patient presents to the emergency department with complaint of leaking from his urostomy bag. Patient states that he was at this facility a week ago and had a kidney stone in his transplanted kidney and therefore was transferred up to [facility] where they remove the kidney stone and placed a urostomy tube. Patient notices that his bag is leaking and would like a new bag. He denies fevers or chills or sweats. He is otherwise doing well. His transplant was 5 years ago. [facility] Medical History Congestive heart failure (CHF) Diabetic foot ulcer Gas gangrene of foot Necrotizing fasciitis Diabetic foot infection Type 2 diabetes mellitus with diabetic polyneuropathy 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 exposed Vision loss of left eye Respiratory failure Hypoxemia COVID-19 COVID-19 Type 2 diabetes mellitus with diabetic polyneuropathy Cellulitis of left lower limb Pulmonary edema Dyspnea Fistula (~12/2018) History of left heart catheterization (LHC) (~06/26/11) Atherosclerotic heart disease of [place] coronary artery without angina pectoris Essential hypertension Problem with dialysis access Chronic renal failure, stage 5 Vision problems Pneumonia Kidney stones Kidney failure Anasarca associated with disorder of kidney Autonomic neuropathy Hypoglycemia Acute hypoxemic respiratory failure Acute on chronic diastolic CHF (congestive heart failure) Retention, urine Obesity (BMI 30-39.9) Acute respiratory failure with hypoxia Hypokalemia Noncompliance Diabetic neuropathy Diabetic nephropathy Diabetic retinopathy ILDA (acute kidney injury) Hypertensive emergency Chewing tobacco nicotine dependence GERD (gastroesophageal reflux disease) Anxiety and depression Diabetes mellitus type II, uncontrolled Blind left eye HLD (hyperlipidemia) Right leg pain Chronic ulcer of 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 Cellulitis and abscess of right leg History of acute myocardial infarction Home Medications ?Medication ?Instructions ?Recorded ?Last Taken ?Type pantoprazole 20 mg tablet,delayed 20 mg PO DAILY gerd 09/18/21 01/26/25 History release (Protonix) prednisone 5 mg tablet 5 mg PO DAILY steroid 09/18/21 01/26/25 History tacrolimus 1 mg tablet,extended 1 mg PO DAILY rejection med 09/18/21 01/26/25 History release 24 hr (Envarsus XR) cholecalciferol (vitamin D3) 25 25 mcg PO FR SUPPLEMENT' 12/26/21 01/22/25 History mcg (1,000 unit) capsule (Vitamin D3) losartan 25 mg tablet 25 mg PO DAILY BP 09/05/22 01/26/25 History acetaminophen 500 mg tablet 500 mg PO Q4H PRN Pain 11/01/22 10/31/22 History aspirin 81 mg chewable tablet 81 mg PO DAILY HEALTH 11/01/22 01/26/25 History gabapentin 100 mg capsule 100 mg PO QHS NERVE PAIN 11/01/22 01/24/25 History atenolol 100 mg tablet 100 mg PO DAILY 03/14/23 01/26/25 History bupropion HCl 75 mg tablet 75 mg PO DAILY 03/24/24 01/26/25 History fluoxetine 10 mg capsule 10 mg PO DAILY 03/24/24 Unknown History insulin lispro protamine-lispro See Rx Instructions subcut .tid 03/30/24 Unknown Rx 100 unit/mL (50-50) subcutaneous with meals #42 mL pen (Humalog Mix 50-50 KwikPen) Trulicity 4.5 mg/0.5 mL 4.5 mg (0.5 mL) subcut QWEEK #6 mL 07/17/24 01/21/25 Rx subcutaneous pen injector (dulaglutide) metoclopramide HCl 5 mg tablet 5 mg PO Q6H PRN vertigo #10 tabs 11/19/24 01/26/25 Rx (Reglan) bupropion HCl 300 mg 24 hr tablet, 300 mg PO DAILY 01/26/25 Unknown History extended release carvedilol 25 mg tablet 25 mg PO BID 01/26/25 Unknown History mycophenolate sodium 180 mg 360 mg PO BID 01/26/25 Unknown History tablet,delayed release sulfamethoxazole 400 1 tab PO MOWEFR 01/26/25 Unknown History mg-trimethoprim 80 mg tablet Allergy/AdvReac Type Severity Reaction Status Date / Time No Known Allergies Allergy Verified 02/07/25 13:10 Family History Mother Heart disease Hypertension Father Cancer Brother Cancer Diabetes Sister Diabetes Other Alcohol abuse Depression H/O transfusion of whole blood Kidney disease Surgical History Renal transplant recipient Kidney replaced by transplant History of artificial lens replacement History of arteriovenostomy for renal dialysis (~08/2018) Status post insertion of dialysis catheter (~08/2018) History of appendectomy History of eye surgery History of cholecystectomy Social History household members: spouse Smoking Status: Never smoker second hand exposure: No alcohol intake: never substance use type: does not use caffeine: No what type of physical activity do you participate in: none ROS ROS ED ROS Narrative Leaking urostomy bag Review of Systems ROS Unobtainable: other Constitutional Constitutional ED: Reports lethargy; Denies chills, fever(s), sweats or weight loss Eyes Eyes: Denies blurry vision, change in vision or diplopia ENT ENT ED: Denies rhinorrhea or sore throat Cardiovascular Cardiovascular: Denies chest pain, orthopnea or racing heartbeat Respiratory/Chest Respiratory/Chest: Denies cough, dyspnea, dyspnea on exertion, orthopnea or sputum Gastrointestinal Gastrointestinal: Denies abdominal pain, diarrhea, nausea or vomiting Genitourinary Genitourinary ED: Denies dysuria, hematuria or urinary frequency Musculoskeletal Musculoskeletal: Denies arthralgias, back pain, myalgias or neck pain Integumentary Denies abscess, Abrasions or rash Neurologic Neurologic: Denies headache(s) or weakness Psychiatric Psychiatric: Denies anxiety, depression or suicidal thoughts Endocrine Endocrinology: Denies polydipsia, polyphagia or polyuria Hematologic/Lymphatic Hematologic/Lymphatic: Denies easy bleeding, easy bruising or lymphadenopathy Allergic/Immunologic Allergic/Immunologic ED: Denies mouth swelling, tongue swelling or urticaria EXAM Physical Exam Const Vital Signs: 02/07/25 13:09 Temperature 98.2 F Temperature Source Oral Pulse Rate 99 Respiratory Rate 16 Blood Pressure 149/72 H Blood Pressure Mean 97 Pulse Ox 98 Oxygen Delivery Method Room Air Positive well nourished and well developed General Appearance ED: well developed and NAD HEENT Reports TM's clear and moist mucous membranes normocephalic and atraumatic; Negative for trauma or tenderness Tympanic Membrane ED: Yes TM's clear Eyes PERRL and EOMs intact bilaterally General Eye ED: Negative for pale conjunctiva or scleral icterus Neck no lymphadenopathy, supple and no JVD General: Negative for tenderness Chest Wall inspection of chest normal and palpation of chest normal Chest: Negative for tenderness Resp normal respiratory effort and clear to auscultation bilaterally Effort and Inspection: Negative for respiratory distress or pain with movement Auscultation: Negative for rhonchi, wheezes or diminished lung sounds Cardio regular rate, regular rhythm, S1 normal heart sound, S2 normal heart sound and no murmurs Peripheral Pulses: pulses 2+ throughout GI normal to inspection, nondistended, normoactive bowel sounds, soft to palpation, non-tender, non-distended and no masses GI Narrative: Patient has a urostomy from the right lower quadrant. The dressing is not saturated. Tubing appears to be intact. Cannot visualize the source of the leak at the bag. Back/Spine no CVA tenderness and no thoracic nor lumbar tenderness Extremity normal to inspection General Extremety ED: Negative for edema General Extremity: Negative for edema Neuro oriented x3, CN's II-XII intact bilaterally, no sensory deficits noted and gait normal Sensorium / Orientation: awake, alert, oriented to person, oriented to place and oriented to time Motor Exam: strength 5/5 throughout and strength abnormal Psych mental status grossly normal Skin no rashes or lesions noted and no wounds MDM MDM MDM Narrative Medical decision making narrative: Patient with a leaking urostomy bag. Will attempt to replace the bag and check all connections. Nursing staff was able to find tubing and bag to correct the problem. Patient advised to follow-up with his urologist as the tubing is shorter than his original tubing. Patient comfortable with plan. Discharged to home in stable condition. Discharge Plan Triage Chief Complaint: Complaint ED Provider: Toni Nelson Dx/Rx/DC Orders Clinical Impression: Nephrostomy tube failure with subsequent urine leak Instructions: Urinary Catheter Bag Care Prescriptions: No Action losartan 25 mg tablet 25 mg PO DAILY bupropion HCl 75 mg tablet 75 mg PO DAILY fluoxetine 10 mg capsule 10 mg PO DAILY prednisone 5 mg Tablet 5 mg PO DAILY pantoprazole [Protonix] 20 mg Tablet,Delayed Release (Dr/Ec) 20 mg PO DAILY Envarsus XR 1 mg tablet extended release 24 hr 1 mg PO DAILY cholecalciferol (vitamin D3) [Vitamin D3] 25 mcg (1,000 unit) Capsule 25 mcg PO FR acetaminophen 500 mg Tablet 500 mg PO Q4H PRN (Reason: Pain) aspirin [Aspirin Low-Strength] 81 mg Tablet,Chewable 81 mg PO DAILY gabapentin 100 mg capsule 100 mg PO QHS atenolol 100 mg tablet 100 mg PO DAILY carvedilol 25 mg tablet 25 mg PO BID sulfamethoxazole-trimethoprim 400-80 mg tablet 1 tab PO MOWEFR mycophenolate sodium 180 mg tablet,delayed release (DR/EC) 360 mg PO BID bupropion HCl 300 mg tablet extended release 24 hr 300 mg PO DAILY metoclopramide HCl [Reglan] 5 mg tablet 5 mg PO Q6H PRN (Reason: vertigo ) Qty: 10 0RF Humalog Mix 50-50 KwikPen 100 unit/mL (50-50) insulin pen See Rx Instructions subcut .tid with meals Qty: 42 5RF Rx Instructions: 40-40-60 units subcutaneously TID WITH MEALS; Trulicity 4.5 mg/0.5 mL pen injector 4.5 mg subcut QWEEK Qty: 6 1RF Patient Comments: PT TAKES ON THURSDAYS Primary Care Provider: Zaida Mcneil Referrals: Zaida Mcneil MD [Primary Care Provider] - Print Language: Sinhala Disposition Disposition: Home, Self Care
[2025-02-07 16:05] VITALS: BP 147/89; PULSE 89; RESP 16; O2SAT 99
== END 2025-02-07 16:06 | disposition home or self-care (01) ==
PROVIDERS: Emergency Provider Emergency Medicine; PCP Internal Medicine; Visit Provider Emergency Medicine
DX: T83.032A Leakage of nephrostomy catheter, initial encounter (principal); I13.2 Hypertensive heart and chronic kidney disease with heart failure and with stage 5 chronic kidney disease, or end stage renal disease; N18.5 Chronic kidney disease, stage 5; I50.33 Acute on chronic diastolic (congestive) heart failure; E11.42 Type 2 diabetes mellitus with diabetic polyneuropathy; E11.22 Type 2 diabetes mellitus with diabetic chronic kidney disease; E78.5 Hyperlipidemia, unspecified; I16.1 Hypertensive emergency; I25.10 Atherosclerotic heart disease of native coronary artery without angina pectoris; Z90.49 Acquired absence of other specified parts of digestive tract
CPT/HCPCS: 99282

== ENCOUNTER 2025-03-10 11:26 | Emergency (ER) | payer MEDICARE, MEDICAID, SELFPAY ==
[2025-03-10] VITALS (9 sets, daily range): BP systolic 102–125; BP diastolic 60–87; PULSE 64–104; RESP 14–18; TEMP 37–37.6; O2SAT 97–100; BMI 25.8
--- NOTE | 2025-03-10 13:35 | EX.ED.DYSGE1 ---
HPI <Dr. Byron Saldana, DO - Last Filed: 03/10/25 15:52> History of Present Illness Chief Complaint: Wound Informant: patient Onset/Context/Timing Onset: Yesterday Context: Gradual Onset Timing: Continuous Quality: Aching Location: Right lower abdomen Worsened by: Movement Relieved by: Nothing Narrative Narrative: Patient presents with infection around his nephrostomy tube that began yesterday. Patient states is gradually getting worse. Patient states it is over the right lower abdomen. Patient describes it as aching. Patient states the pain is worse with certain movements. Patient states nothing makes it better. Patient denies any fevers or chills. Patient denies any change in his urine. Patient denies any neck or back pain. [facility] <Dr. Byron Saldana, - Last Filed: 03/10/25 15:52> [facility] Medical History (Updated 03/10/25 @ 20:[address] Chuy Santiago MD) Anxiety Depression Diabetes Former smoker CPAP (continuous positive airway pressure) dependence Atrial fibrillation Myocardial infarct Congestive heart failure (CHF) Diabetic foot ulcer Gas gangrene of foot Necrotizing fasciitis Diabetic foot infection Type 2 diabetes mellitus with diabetic polyneuropathy 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 exposed Vision loss of left eye Respiratory failure Hypoxemia COVID-19 COVID-19 Type 2 diabetes mellitus with diabetic polyneuropathy Cellulitis of left lower limb Pulmonary edema Dyspnea Fistula (~12/2018) History of left heart catheterization (LHC) (~06/26/11) Atherosclerotic heart disease of [place] coronary artery without angina pectoris Essential hypertension Problem with dialysis access Chronic renal failure, stage 5 Vision problems Pneumonia Kidney stones Kidney failure Anasarca associated with disorder of kidney Autonomic neuropathy Hypoglycemia Acute hypoxemic respiratory failure Acute on chronic diastolic CHF (congestive heart failure) Retention, urine Obesity (BMI 30-39.9) Acute respiratory failure with hypoxia Hypokalemia Noncompliance Diabetic neuropathy Diabetic nephropathy Diabetic retinopathy ILDA (acute kidney injury) Hypertensive emergency Chewing tobacco nicotine dependence GERD (gastroesophageal reflux disease) Anxiety and depression Diabetes mellitus type II, uncontrolled Blind left eye HLD (hyperlipidemia) Right leg pain Chronic ulcer of 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 Cellulitis and abscess of right leg History of acute myocardial infarction Home Medications ?Medication ?Instructions ?Recorded ?Last Taken ?Type prednisone 5 mg tablet 5 mg PO DAILY steroid 09/18/21 03/10/25 History fluoxetine 10 mg capsule 10 mg PO DAILY 03/24/24 03/09/25 History insulin lispro protamine-lispro See Rx Instructions subcut .tid 03/30/24 03/10/25 Rx 100 unit/mL (50-50) subcutaneous with meals #42 mL pen (Humalog Mix 50-50 KwikPen) mycophenolate sodium 180 mg 360 mg PO BID 01/26/25 03/10/25 History tablet,delayed release sulfamethoxazole 400 1 tab PO MOWEFR 01/26/25 03/10/25 History mg-trimethoprim 80 mg tablet carvedilol 12.5 mg tablet 12.5 mg PO BID 03/10/25 03/10/25 History cephalexin 500 mg capsule 500 mg PO Q6 #28 CAPSULES 03/10/25 Unknown Rx escitalopram oxalate 10 mg tablet 10 mg PO DAILY 03/10/25 03/09/25 History sulfamethoxazole 800 1 tab PO BID #14 TABLETS 03/10/25 Unknown Rx mg-trimethoprim 160 mg tablet Allergy/AdvReac Type Severity Reaction Status Date / Time No Known Allergies Allergy Verified 03/10/25 11:27 Family History Mother Heart disease Hypertension Father Cancer Brother Cancer Diabetes Sister Diabetes Other Alcohol abuse Depression H/O transfusion of whole blood Kidney disease Surgical History (Updated 03/10/25 @ 20:[address] Chuy Santiago MD) Renal transplant recipient Kidney replaced by transplant History of artificial lens replacement History of arteriovenostomy for renal dialysis (~08/2018) Status post insertion of dialysis catheter (~08/2018) History of appendectomy History of eye surgery History of cholecystectomy Social History household members: spouse Smoking Status: Never smoker second hand exposure: No alcohol intake: never substance use type: does not use caffeine: No what type of physical activity do you participate in: none ROS <Dr. Byron Saldana DO - Last Filed: 03/10/25 15:52> ROS ED Constitutional Constitutional ED: Denies chills or fever(s) Eyes Eyes: Denies blurry vision or change in vision ENT ENT ED: Denies rhinorrhea or sore throat Cardiovascular Cardiovascular: Denies chest pain or palpitations Respiratory/Chest Respiratory/Chest: Reports cough; Denies dyspnea Gastrointestinal Gastrointestinal: Denies nausea or vomiting Genitourinary Genitourinary ED: Denies dysuria or hematuria Musculoskeletal Musculoskeletal: Denies back pain or neck pain Integumentary Denies rash Neurologic Neurologic: Denies headache(s) or weakness Allergic/Immunologic Allergic/Immunologic ED: Denies mouth swelling or urticaria EXAM <Dr. Byron Saldana DO - Last Filed: 03/10/25 15:52> Physical Exam Const Vital Signs: 03/10/25 11:27 03/10/25 11:29 03/10/25 12:29 Temperature 98.9 F 98.8 F 98.7 F Temperature Source Temporal Oral Oral Pulse Rate 104 H 99 64 Respiratory Rate 16 18 18 Blood Pressure 102/60 118/78 118/76 Blood Pressure Mean 74 91 90 Pulse Ox 98 99 99 Oxygen Delivery Method Room Air Room Air Room Air 03/10/25 14:00 03/10/25 15:00 03/10/25 17:00 Temperature 98.7 F 98.6 F Temperature Source Oral Oral Pulse Rate 99 86 75 Respiratory Rate 15 14 15 Blood Pressure 118/76 122/87 H 125/78 H Blood Pressure Mean 90 98 93 Pulse Ox 100 99 100 Oxygen Delivery Method Room Air Room Air Room Air 03/10/25 19:00 03/10/25 19:35 Temperature 99.6 F H Temperature Source Oral Pulse Rate 87 Respiratory Rate 16 Blood Pressure 114/76 Blood Pressure Mean 88 Pulse Ox 98 Oxygen Delivery Method Room Air Positive well nourished and well developed General Appearance ED: well developed and NAD HEENT Reports moist mucous membranes Neck supple and no JVD Resp normal respiratory effort and clear to auscultation bilaterally Cardio regular rate and regular rhythm GI non-distended Palpation: soft and tender RLQ; Negative for guarding or rebound tenderness present Neuro oriented x3, CN's II-XII intact bilaterally and no sensory deficits noted Sensorium / Orientation: alert Motor Exam: strength 5/5 throughout Psych mental status grossly normal Skin Skin Narrative: There is edema, erythema, and mild induration of the skin around the nephrostomy tube site. There is no fluctuance. There is some mild purulent drainage noted at the site. Abdomen was otherwise soft and nontender. There is no CVA tenderness. <Dr. Chuy Santiago MD - Last Filed: 03/10/25 20:41> Physical Exam Const Vital Signs: 03/10/25 11:27 03/10/25 11:29 03/10/25 12:29 Temperature 98.9 F 98.8 F 98.7 F Temperature Source Temporal Oral Oral Pulse Rate 104 H 99 64 Respiratory Rate 16 18 18 Blood Pressure 102/60 118/78 118/76 Blood Pressure Mean 74 91 90 Pulse Ox 98 99 99 Oxygen Delivery Method Room Air Room Air Room Air 03/10/25 14:00 03/10/25 15:00 03/10/25 17:00 Temperature 98.7 F 98.6 F Temperature Source Oral Oral Pulse Rate 99 86 75 Respiratory Rate 15 14 15 Blood Pressure 118/76 122/87 H 125/78 H Blood Pressure Mean 90 98 93 Pulse Ox 100 99 100 Oxygen Delivery Method Room Air Room Air Room Air 03/10/25 19:00 03/10/25 19:35 Temperature 99.6 F H Temperature Source Oral Pulse Rate 87 Respiratory Rate 16 Blood Pressure 114/76 Blood Pressure Mean 88 Pulse Ox 98 Oxygen Delivery Method Room Air MDM <Dr. Byron Saldana, DO - Last Filed: 03/10/25 15:52> [facility] MDM Narrative Medical decision making narrative: Differential diagnosis includes wound infection, abscess, and cellulitis. CT scan of the abdomen pelvis will be obtained to assess for deep abscess. Urinalysis will be obtained to assess for urinary tract infection and hematuria. Lab Data Labs: Laboratory Results - last 24 hr 03/10/25 03/10/25 16:13 18:40 Sodium 134 Potassium 4.2 Chloride 100 Carbon Dioxide 23.9 Anion Gap 11 BUN 23 H Creatinine 1.20 Estim Creat Clear Calc 66.50 Est GFR (MDRD) Non-Af 71 BUN/Creatinine Ratio 18.8 Glucose 307 H Calcium 9.3 Urine Color Yellow Urine Clarity Cloudy Urine pH 6.0 Ur Specific [place] 1.015 Urine Protein 100 H Urine Glucose (UA) 1000 H Urine Ketones Negative Urine Occult Blood 250 H Urine Nitrite Positive H Urine Bilirubin Negative Urine Urobilinogen Normal Ur Leukocyte Esterase 500 H Urine RBC 10-25 SEEN Urine WBC 50-100 SEEN Ur Squamous Epith Cells 0-5 SEEN Urine Bacteria 2+ Urine Mucus 0 SEEN Radiography Diagnostic Testing: Clinical Impression(s) from Imaging Studies Abdomen/Pelvis CT 03/10/25 13:40 IMPRESSION: 1. Transplant kidney in the right lower abdominal quadrant with external nephrostomy tube. Mild hydronephrosis in the setting of an obstructive calculus in the mid ureter measuring up to 9 mm. 2. Bladder wall thickening which may be due to the decompressed state of the bladder or due to cystitis. 3. Small esophageal hiatal hernia. 4. Hepatomegaly with fatty infiltration. 5. Fecal retention in the colon consistent with constipation. Reading Location: [facility] CT scan of the abdomen and pelvis was obtained. There is a transplanted kidney in the right lower abdominal quadrant with external nephrostomy tube. There is mild hydronephrosis. There is a 9 mm calculus in the right mid ureter. There is bladder wall thickening. There is no free air or free fluid. This was interpreted by the radiologist as also independently reviewed by myself. Treatment and Re-Evaluation :: Patient was given a dose of Unasyn here. Patient was advised of his findings. Care of the provide was turned over to the oncoming physician pending urinalysis results. <Dr. Chuy Santiago MD - Last Filed: 03/10/25 20:41> [facility] Lab Data Attestation: I reviewed the patient's lab results. Lab results narrative: Basic metabolic panel was obtained since his prior creatinine was 7 and would affect dosing of meds and what meds can be ordered. BMP today is unremarkable with a normal estimated GFR of 71. Therefore will place on Bactrim twice daily since he has no allergy to sulfa. Labs: Laboratory Results - last 24 hr 03/10/25 03/10/25 16:13 18:40 Sodium 134 Potassium 4.2 Chloride 100 Carbon Dioxide 23.9 Anion Gap 11 BUN 23 H Creatinine 1.20 Estim Creat Clear Calc 66.50 Est GFR (MDRD) Non-Af 71 BUN/Creatinine Ratio 18.8 Glucose 307 H Calcium 9.3 Urine Color Yellow Urine Clarity Cloudy Urine pH 6.0 Ur Specific [place] 1.015 Urine Protein 100 H Urine Glucose (UA) 1000 H Urine Ketones Negative Urine Occult Blood 250 H Urine Nitrite Positive H Urine Bilirubin Negative Urine Urobilinogen Normal Ur Leukocyte Esterase 500 H Urine RBC 10-25 SEEN Urine WBC 50-100 SEEN Ur Squamous Epith Cells 0-5 SEEN Urine Bacteria 2+ Urine Mucus 0 SEEN Radiography Diagnostic Testing: Clinical Impression(s) from Imaging Studies Abdomen/Pelvis CT 03/10/25 13:40 IMPRESSION: 1. Transplant kidney in the right lower abdominal quadrant with external nephrostomy tube. Mild hydronephrosis in the setting of an obstructive calculus in the mid ureter measuring up to 9 mm. 2. Bladder wall thickening which may be due to the decompressed state of the bladder or due to cystitis. 3. Small esophageal hiatal hernia. 4. Hepatomegaly with fatty infiltration. 5. Fecal retention in the colon consistent with constipation. Reading Location: [facility] Treatment and Re-Evaluation :: Patient was given a dose of Unasyn here. Patient was advised of his findings. Care of the provide was turned over to the oncoming physician pending urinalysis results. Also will place on cephalexin for streptococcal coverage. Discharge Plan Triage Chief Complaint: Wound ED Provider: Byron Saldana Dx/Rx/DC Orders Clinical Impression: Abdominal wall cellulitis, History of insertion of nephrostomy tube, Type 2 diabetes mellitus with hyperglycemia, History of CAD (coronary artery disease), Diabetic retinopathy, Diabetic nephropathy, Kidney transplant recipient, Complicated urinary tract infection Instructions: ED Cellulitis, ED Bladder Infection, Male (Adult) Prescriptions: New sulfamethoxazole-trimethoprim 800-160 mg tablet 1 tab PO BID Qty: 14 0RF cephalexin 500 mg capsule 500 mg PO Q6 Qty: 28 0RF No Action fluoxetine 10 mg capsule 10 mg PO DAILY prednisone 5 mg Tablet 5 mg PO DAILY sulfamethoxazole-trimethoprim 400-80 mg tablet 1 tab PO MOWEFR mycophenolate sodium 180 mg tablet,delayed release (DR/EC) 360 mg PO BID carvedilol 12.5 mg tablet 12.5 mg PO BID escitalopram oxalate 10 mg tablet 10 mg PO DAILY Humalog Mix 50-50 KwikPen 100 unit/mL (50-50) insulin pen See Rx Instructions subcut .tid with meals Qty: 42 5RF Rx Instructions: 40-40-60 units subcutaneously TID WITH MEALS; Primary Care Provider: Zaida Mcneil Referrals: Zaida Mcneil MD [Primary Care Provider] - 3-5 Days Print Language: Eritrean Disposition Disposition: Home, Self Care
--- NOTE | 2025-03-10 13:40 | CT_ITS ---
EXAM: CT Abdomen and Pelvis Without Intravenous Contrast CLINICAL INDICATION: FLANK PAIN TECHNIQUE: Axial computed tomography images of the abdomen and pelvis without intravenous contrast. This CT exam was performed using one or more of the following dose reduction techniques: automated exposure control, adjustment of the mA and/or kV according to patient size, and/or use of iterative reconstruction technique. COMPARISON: CT Abdomen Pelvis dated 01/26/2025 FINDINGS: LUNG BASES: Unremarkable. No mass. No consolidation. MEDIASTINUM: Small esophageal hiatal hernia. ABDOMEN: LIVER: Hepatomegaly with fatty infiltration. GALLBLADDER AND BILE DUCTS: Gallbladder is surgically absent. No ductal dilation. PANCREAS: Unremarkable. No ductal dilation. SPLEEN: Unremarkable. No splenomegaly. ADRENALS: Unremarkable. No mass. KIDNEYS AND URETERS: Transplant kidney in the right lower abdominal quadrant with external nephrostomy tube. Mild hydronephrosis in the setting of an obstructive calculus in the mid ureter measuring up to 9 mm. STOMACH AND BOWEL: Fecal retention in the colon consistent with constipation. No obstruction. No mucosal thickening. PELVIS: APPENDIX: No findings to suggest acute appendicitis. BLADDER: Bladder wall thickening which may be due to the decompressed state of the bladder or due to cystitis. No stones. REPRODUCTIVE: Unremarkable as visualized. ABDOMEN and PELVIS: INTRAPERITONEAL SPACE: Unremarkable. No free air. No significant fluid collection. BONES/JOINTS: No acute fracture. No dislocation. SOFT TISSUES: Unremarkable. VASCULATURE: Unremarkable. No abdominal aortic aneurysm. LYMPH NODES: Unremarkable. No enlarged lymph nodes. CT/Abdomen/Pelvis without Cont IMPRESSION: 1. Transplant kidney in the right lower abdominal quadrant with external nephr ostomy tube. Mild hydronephrosis in the setting of an obstructive calculus in the mid ureter measuring up to 9 mm. 2. Bladder wall thickening which may be due to the decompressed state of the b ladder or due to cystitis. 3. Small esophageal hiatal hernia. 4. Hepatomegaly with fatty infiltration. 5. Fecal retention in the colon consistent with constipation. Reading Location: [facility]
[2025-03-10] MEDS: Ampicillin/Sulbactam 3 GM in 0.9% Normal Saline (100mL MB+) 100 ML IV (14:05)
[2025-03-10 16:25] LABS: Mucous, Urine 0 SEEN /hpf (<or=2+)
[2025-03-10 16:38] LABS: Color, Urine Yellow (Yellow); Glucose, Dipstick 1000 mg/dl (Normal); Ketone-Dipstick Negative (Negative); Leukocyte Esterase-Dipstick 500 /ul (Negative); Nitrite-Dipstick Positive (Negative); Occult Blood-Urine 250 /ul (Negative); Protein-Dipstick 100 mg/dl (Negative); Specific Gravity, Urine 1.015 (1.002-1.030); Urine Bilirubin Dipstick Negative (Negative)
[2025-03-10 17:53] LABS: Red Blood Cells-Urine 10-25 SEEN /hpf (0-5); Squamous Epithelial Cells - UA 0-5 SEEN /hpf (0-5)
[2025-03-10 19:33] LABS: Anion Gap 11 (5-15); BUN 23 mg/dL (4-19); BUN/Creat Ratio 18.8 RATIO (10-20); Calcium,Total 9.3 mg/dL (7.6-11.0); Carbon Dioxide 23.9 mmol/L (21.0-32.0); Chloride 100 mmol/L (98-108); Estimated Creatinine Clearance 66.50 ml/min (50-250); Glucose 307 mg/dL (70-99); Potassium 4.2 mmol/L (3.3-5.1)
== END 2025-03-10 20:54 | disposition home or self-care (01) ==
PROVIDERS: Emergency Medicine; Emergency Provider Emergency Medicine; PCP Internal Medicine; Visit Provider Emergency Medicine
DX: L03.311 Cellulitis of abdominal wall (principal); I13.2 Hypertensive heart and chronic kidney disease with heart failure and with stage 5 chronic kidney disease, or end stage renal disease; N18.5 Chronic kidney disease, stage 5; Z93.6 Other artificial openings of urinary tract status; I50.33 Acute on chronic diastolic (congestive) heart failure; E11.22 Type 2 diabetes mellitus with diabetic chronic kidney disease; E11.42 Type 2 diabetes mellitus with diabetic polyneuropathy; E11.65 Type 2 diabetes mellitus with hyperglycemia; E11.319 Type 2 diabetes mellitus with unspecified diabetic retinopathy without macular edema; E78.5 Hyperlipidemia, unspecified; I25.10 Atherosclerotic heart disease of native coronary artery without angina pectoris; Z79.899 Other long term (current) drug therapy; Z94.0 Kidney transplant status; N13.6 Pyonephrosis
CPT/HCPCS: 74176; 80048; 81001; 96360; 96361; 99282; A4216; J0295

== ENCOUNTER 2025-04-04 11:03 | Emergency (ER) | payer MEDICARE, MEDICAID, SELFPAY ==
[2025-04-04 11:05] VITALS: BP 129/74; PULSE 108; RESP 16; TEMP 37.2; O2SAT 100; BMI 25.9
--- NOTE | 2025-04-04 11:29 | EX.ED.DYSGE1 ---
HPI History of Present Illness Chief Complaint: Numb/Ting Detail of Chief Complaint: Bilateral hand numbness, cough and nausea and vomiting Informant: patient Onset/Context/Timing Onset: Yesterday Context: Sudden Onset Timing: Continuous Quality: Numbness hands only, nausea and vomiting Location: Hands and GI Current Severity: Mild Maximum Severity: Mild Worsened by: Nothing Relieved by: Nothing Associated Symptoms Associated Symptoms: Does endorse weight loss. He is on weekly injections for his diabetes Narrative Narrative: Patient is a 54-year-old male. He presents from retirement. He arrived by ambulance. He denies headache. He denies double vision, blurred vision or loss of vision. He denies ringing in his ears or decreased hearing. He denies rhinorrhea, congestion, postnasal drainage or sore throat. He does have a slight cough. The cough is nonproductive. Yesterday he had nausea and vomiting. There was no blood or coffee-ground's noted in his emesis. He denies black or maroon-colored stool. He does endorse frequency and thirst. He also endorses dry mouth. He denies nocturia. He denies hematuria, dysuria or change in the color of his urine. He denies myalgias or arthralgias. He denies problems with balance or coordination. He denies perioral numbness or numbness or tingling in his feet. He does not give symptoms of claudication. He does admit that he had more hair on his legs when he was younger. His last A1c was 3 months ago and was 13. Prior similar symptoms: No Recent Illness/Hospitalization: No PFSH PFSH Medical History Anxiety Depression Diabetes Former smoker CPAP (continuous positive airway pressure) dependence Atrial fibrillation Myocardial infarct Congestive heart failure (CHF) Diabetic foot ulcer Gas gangrene of foot Necrotizing fasciitis Diabetic foot infection Type 2 diabetes mellitus with diabetic polyneuropathy 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 exposed Vision loss of left eye Respiratory failure Hypoxemia COVID-19 COVID-19 Type 2 diabetes mellitus with diabetic polyneuropathy Cellulitis of left lower limb Pulmonary edema Dyspnea Fistula (~12/2018) History of left heart catheterization (LHC) (~06/26/11) Atherosclerotic heart disease of [place] coronary artery without angina pectoris Essential hypertension Problem with dialysis access Chronic renal failure, stage 5 Vision problems Pneumonia Kidney stones Kidney failure Anasarca associated with disorder of kidney Autonomic neuropathy Hypoglycemia Acute hypoxemic respiratory failure Acute on chronic diastolic CHF (congestive heart failure) Retention, urine Obesity (BMI 30-39.9) Acute respiratory failure with hypoxia Hypokalemia Noncompliance Diabetic neuropathy Diabetic nephropathy Diabetic retinopathy ILDA (acute kidney injury) Hypertensive emergency Chewing tobacco nicotine dependence GERD (gastroesophageal reflux disease) Anxiety and depression Diabetes mellitus type II, uncontrolled Blind left eye HLD (hyperlipidemia) Right leg pain Chronic ulcer of 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 Cellulitis and abscess of right leg History of acute myocardial infarction Home Medications ?Medication ?Instructions ?Recorded ?Last Taken ?Type prednisone 5 mg tablet 5 mg PO DAILY steroid 09/18/21 03/10/25 History fluoxetine 10 mg capsule 10 mg PO DAILY 03/24/24 03/09/25 History insulin lispro protamine-lispro See Rx Instructions subcut .tid 03/30/24 03/10/25 Rx 100 unit/mL (50-50) subcutaneous with meals #42 mL pen (Humalog Mix 50-50 KwikPen) mycophenolate sodium 180 mg 360 mg PO BID 01/26/25 03/10/25 History tablet,delayed release sulfamethoxazole 400 1 tab PO MOWEFR 01/26/25 03/10/25 History mg-trimethoprim 80 mg tablet carvedilol 12.5 mg tablet 12.5 mg PO BID 03/10/25 03/10/25 History cephalexin 500 mg capsule 500 mg PO Q6 #28 CAPSULES 03/10/25 Unknown Rx escitalopram oxalate 10 mg tablet 10 mg PO DAILY 03/10/25 03/09/25 History sulfamethoxazole 800 1 tab PO BID #14 TABLETS 03/10/25 Unknown Rx mg-trimethoprim 160 mg tablet Allergy/AdvReac Type Severity Reaction Status Date / Time No Known Allergies Allergy Verified 04/04/25 11:08 Family History Mother Heart disease Hypertension Father Cancer Brother Cancer Diabetes Sister Diabetes Other Alcohol abuse Depression H/O transfusion of whole blood Kidney disease Surgical History Renal transplant recipient Kidney replaced by transplant History of artificial lens replacement History of arteriovenostomy for renal dialysis (~08/2018) Status post insertion of dialysis catheter (~08/2018) History of appendectomy History of eye surgery History of cholecystectomy Social History household members: spouse Smoking Status: Never smoker second hand exposure: No alcohol intake: never substance use type: does not use caffeine: No what type of physical activity do you participate in: none ROS ROS ED Constitutional Constitutional ED: Reports weight loss; Denies chills, fever(s), subjective or sweats Eyes Eyes: Denies blurry vision, change in vision or diplopia ENT ENT ED: Denies ear pain, rhinorrhea or sore throat Cardiovascular Cardiovascular: Denies chest pain, orthopnea, palpitations or paroxysmal nocturnal dyspnea Respiratory/Chest Respiratory/Chest: Reports cough; Denies dyspnea, dyspnea on exertion, orthopnea, paroxysmal nocturnal dyspnea or sputum Gastrointestinal Gastrointestinal: Reports nausea and vomiting; Denies abdominal pain, constipation, diarrhea or melena Genitourinary Genitourinary ED: Reports urinary frequency; Denies dysuria or hematuria Musculoskeletal Musculoskeletal: Denies arthralgias or myalgias Integumentary Denies Abrasions or rash Neurologic Neurologic: Reports paresthesias RUE and LUE and weakness; Denies headache(s) Psychiatric Psychiatric: Denies anxiety or depression Endocrine Endocrinology: Reports polydipsia; Denies cold intolerance or heat intolerance Hematologic/Lymphatic Hematologic/Lymphatic: Reports systems reviewed and no addt'l complaints, except as documented EXAM Physical Exam Const Vital Signs: 04/04/25 11:05 04/04/25 13:04 04/04/25 15:00 Temperature 98.9 F Temperature Source Oral Pulse Rate 108 H 92 97 Respiratory Rate 16 17 16 Blood Pressure 129/74 H 133/83 H 126/74 H Blood Pressure Mean 92 99 91 Pulse Ox 100 99 Oxygen Delivery Method Room Air Room Air Positive well nourished and well developed Constitutional Narrative: Monitor Veals sinus tachycardia. QS complexes narrow. Patient has temporal wasting. General Appearance ED: well developed; Negative for pallor HEENT Reports dry mucous membranes HEENT Narrative: Ears normal. Nares patent. Posterior pharynx normal. Uvula is midline. There is no deviation tongue or protrusion. Mouth ED: Yes dry mucous membranes Mouth: dry mucous membranes Eyes PERRL and EOMs intact bilaterally General Eye ED: Negative for pale conjunctiva or scleral icterus Neck no lymphadenopathy and supple Chest Wall inspection of chest normal and palpation of chest normal Resp normal respiratory effort and clear to auscultation bilaterally Cardio regular rhythm, S1 normal heart sound, S2 normal heart sound and no murmurs Rate: tachycardic GI normal to inspection, nondistended, normoactive bowel sounds, non-tender, non-distended and no masses; Negative for hepatosplenomegaly Back/Spine no CVA tenderness Extremity Negative for normal to inspection Extremity Narrative: There is muscle wasting webspace between thumb and index finger bilaterally. There is no cyanosis or clubbing noted. He does have stigmata of peripheral arterial disease of his lower extremities. Median, radial and ulnar function intact bilaterally. Neuro oriented x3, CN's II-XII intact bilaterally and No no sensory deficits noted Sensorium / Orientation: alert Motor Exam: strength 5/5 throughout Psych mental status grossly normal Skin no rashes or lesions noted, no wounds and skin turgor normal General Skin Exam: Negative for elasticity normal, jaundice or pallor MDM MDM MDM Narrative Medical decision making narrative: Patient may have hyperglycemia in light of his polydipsia and increased urination. Based on his test A1c is poorly controlled. There is also concern for muscle wasting and weight loss. Will obtain CMP to assess electrolytes, renal function, CO2 anion gap and glucose as well as his liver enzymes. Also if his calcium and alkaline phosphatase are elevated will need to assess for possible malignancy. History & Record Review Additional record(s) reviewed:: Prior outpatient record (Seen by [facility], Dr. Durand for diabetic neuropathy.), Prior ED visit (Seen first part of March for cellulitis. Seen in February for nephrostomy tube failure with leakage. Seen in January for acute kidney injury.) and Prior labs Lab Data Labs: Laboratory Results - last 24 hr 04/04/25 04/04/25 04/04/25 11:42 12:15 13:34 WBC 8.2 RBC 4.13 L Hgb 12.3 L Hct 36.8 L MCV 89.1 MCH 29.8 MCHC 33.4 RDW Std Deviation 40.5 RDW Coeff of Tomy 12.4 Plt Count 341 MPV 9.3 Immature Gran % (Auto) 0.200 Neut % (Auto) 75.6 H Lymph % (Auto) 14.4 L [place] % (Auto) 8.7 Eos % (Auto) 0.7 Baso % (Auto) 0.4 Absolute Neuts (auto) 6.2 Absolute Lymphs (auto) 1.17 Nucleated RBC % 0 Sodium 128 L Potassium 5.1 Chloride 94 L Carbon Dioxide 22.2 Anion Gap 12 BUN 21 H Creatinine 1.26 H Estim Creat Clear Calc 63.33 Est GFR (MDRD) Non-Af 67 BUN/Creatinine Ratio 16.7 Glucose 581 H* Calcium 9.8 Urine Color Yellow Urine Clarity Sl. Cloudy Urine pH 6.5 Ur Specific [place] 1.010 Urine Protein 30 H Urine Glucose (UA) 1000 H Urine Ketones Negative Urine Occult Blood 150 H Urine Nitrite Positive H Urine Bilirubin Negative Urine Urobilinogen 1 H Ur Leukocyte Esterase 500 H Urine RBC 5-10 SEEN Urine WBC 10-25 SEEN Ur Squamous Epith Cells 0 SEEN Urine Bacteria 1+ Urine Mucus 0 SEEN POC Glucose 440 H 04/04/25 15:52 WBC RBC Hgb Hct MCV MCH MCHC RDW Std Deviation RDW Coeff of Tomy Plt Count MPV Immature Gran % (Auto) Neut % (Auto) Lymph % (Auto) [place] % (Auto) Eos % (Auto) Baso % (Auto) Absolute Neuts (auto) Absolute Lymphs (auto) Nucleated RBC % Sodium Potassium Chloride Carbon Dioxide Anion Gap BUN Creatinine Estim Creat Clear Calc Est GFR (MDRD) Non-Af BUN/Creatinine Ratio Glucose Calcium Urine Color Urine Clarity Urine pH Ur Specific [place] Urine Protein Urine Glucose (UA) Urine Ketones Urine Occult Blood Urine Nitrite Urine Bilirubin Urine Urobilinogen Ur Leukocyte Esterase Urine RBC Urine WBC Ur Squamous Epith Cells Urine Bacteria Urine Mucus POC Glucose 294 H Treatment and Re-Evaluation :: Most recent BGT is 440. This is a decrease of 140. Additional liter of normal saline was ordered and additional 10 units of insulin was ordered. Comments:: Repeat blood sugar is 294. Will discharge to home. Discharge Plan Triage Chief Complaint: Numb/Ting ED Provider: Chuy Santiago Dx/Rx/DC Orders Clinical Impression: Controlled type 2 diabetes mellitus with hyperglycemia, with long-term current use of insulin, Overweight, Atherosclerotic heart disease of [place] coronary artery without angina pectoris, Hypertension, Paresthesia of both hands, Diabetic polyneuropathy, Poorly controlled diabetes mellitus, Pseudohyponatremia, Elevated serum creatinine Instructions: ED Diabetic Hyperglycemia, ED Paraesthesias Prescriptions: No Action fluoxetine 10 mg capsule 10 mg PO DAILY prednisone 5 mg Tablet 5 mg PO DAILY sulfamethoxazole-trimethoprim 400-80 mg tablet 1 tab PO MOWEFR mycophenolate sodium 180 mg tablet,delayed release (DR/EC) 360 mg PO BID carvedilol 12.5 mg tablet 12.5 mg PO BID escitalopram oxalate 10 mg tablet 10 mg PO DAILY sulfamethoxazole-trimethoprim 800-160 mg tablet 1 tab PO BID Qty: 14 0RF cephalexin 500 mg capsule 500 mg PO Q6 Qty: 28 0RF Humalog Mix 50-50 KwikPen 100 unit/mL (50-50) insulin pen See Rx Instructions subcut .tid with meals Qty: 42 5RF Rx Instructions: 40-40-60 units subcutaneously TID WITH MEALS; Primary Care Provider: Zaida Mcneil Referrals: Zaida Mcneil MD [Primary Care Provider] - 3-5 Days Print Language: Danish Disposition Disposition: Home, Self Care
--- OUTSIDE RECORDS SUMMARY | 2025-04-04 11:41 | XMS RPT_ITS | CCD ---
Author Organization [facility] Care Team Providers Care Glaze Mixer Name Role Phone Ewa NORTON, Zaida Primary Care Provider Dinesh Vick DO, Christine Unavailable Heena Adams Unavailable Satish Phan MD Unavailable Dr. Zaida Gaston Primary Care Provider 1([facility])[phone] Dr. Toni Nelson Emergency Provider 1([facility])[phone] Henry Padilla Admit Provider 1([facility])[phone] Henry Padilla Attending Provider Dr. Henry Padilla Other Provider 1([facility])[phone] Shruti Jara Attending Provider Dr. Shruti Jara Other Provider 1([facility])[phone] Zaida Gaston Primary Care Provider 1([facility])[phone] Dr. Zaida Gaston Referring Provider 1([facility])[phone] Vj Cabral Attending Provider 1([facility])[phone] Dr. Toni Nelson Emergency Provider 1([facility])[phone] Isamar Smith Admit Provider Dr. Isamar Smith Referring Provider Dr. Isamar Smith Other Provider 1([facility])[phone] John Darnell Other Provider Dr. Joao Hayes Attending Provider 1([facility])[phone] Joao Hayes Other Provider Dr. Loida Montiel Other Provider Dr. Dona Medina Other Provider Dr. John Darnell Attending Provider Dr. Shruti Jara Attending Provider Dr. Shruti Jara Other Provider Dr. Satish Nava Other Provider Zaida Gaston MD Primary Care Provider Dinesh Vick DO, Christine Unavailable Heena Adams Unavailable Satish Phan MD Unavailable Dr. Zaida Gaston Primary Care Provider Heena Adams Unavailable Zaida Gaston MD Primary Care Provider Dinesh Vick DO, Christine Unavailable Heena Adams Unavailable Satish Phan MD Unavailable [facility], Verna Unavailable Dr. Zaida Gaston Primary Care Provider Dr. Waleska Phan Attending Provider Dr. Dona Medina Referring Provider Dr. Dona Medina Other Provider Ashli FITTINGS TIGHTENER, FITTINGS TIGHTENER-C Suzanne E Attending Provider Ashli FITTINGS TIGHTENER, FITTINGS TIGHTENER-C Suzanne E Referring Provider [phone] Aureliano FITTINGS TIGHTENER, FITTINGS TIGHTENER-C Jenna Attending Provider Aureliano FITTINGS TIGHTENER, FITTINGS TIGHTENER-C Jenna Referring Provider Dr. Mayo Levy Referring Provider Dr. Kerrie Henderson Attending Provider Dr. Zaida Gaston Referring Provider Amanda ROCHA, AJ Schaefer Attending Provider LAISHA Meza Attending Provider Dinesh Vick DO, Christine Unavailable Dr. Zaida Gaston Primary Care Provider Dr. Zaida Gaston Primary Care Provider Dr. Dona Medina Other Provider Ashli FITTINGS TIGHTENER, FITTINGS TIGHTENER-C Suzanne E Attending Provider Ashli FITTINGS TIGHTENER, FITTINGS TIGHTENER-C Suzanne E Referring Provider Dr. Chuy Santiago Emergency Provider Dr. Mayo Levy Admit Provider Dr. Mayo Levy Other Provider Delmy Billy Other Provider Unavailable Dr. Amy Ureña Other Provider Dr. William Hayes Other Provider Dr. Kerrie Henderson Other Provider Dr. Awa Martínez Other Provider Bladimir FITTINGS TIGHTENER, FITTINGS TIGHTENER-C Vivian Other Provider Unavail justin Funes FITTINGS TIGHTENER, FITTINGS TIGHTENER-C John Other Provider AJ Josue Other Provider Unavailable Dr. Satish Nava Other Provider Dr. Shruti Jara Attending Provider Dr. Zaida Gaston Primary Care Provider Dr. Zaida Gaston Referring Provider LAISHA Meza Attending Provider Dr. Chuy Santiago Emergency Provider Dr. Mayo Levy Admit Provider Dr. Mayo Levy Referring Provider Dr. Mayo Levy Other Provider Delmy Billy Other Provider Unavailable Dr. Amy Ureña Other Provider Dr. William Hayes Other Provider Dr. Kerrie Henderson Other Provider Dr. Awa Martínez Other Provider Bladimir FITTINGS TIGHTENER, FITTINGS TIGHTENER-C Vivian Other Provider Unavail able Shantel FITTINGS TIGHTENER, FITTINGS TIGHTENER-C John Other Provider AJ Josue Other Provider Unavailable Dr. Satish Nava Other Provider Dr. Shruti Jara Attending Provider [phone] Tylor Rudd Attending Provider Dr. Zaida Gaston Primary Care Provider Dr. Zaida Gaston Referring Provider LAISHA Meza Attending Provider Stephen POSADAS, CUAUHTEMOC-C Yissel Attending Provider Zaida Gaston MD Primary Care Provider Heena Adams Unavailable Dinesh Vick DO, Christine Unavailable Heena Adams Unavailable Satish Phan MD Unavailable Kortney WORTHINGTON, Conchis Unavailable Unavailable Kortney WORTHINGTON, Conchis Unavailable Unavailable Dr. Zaida Gaston Primary Care Provider Dr. Zaida Gaston Referring Provider LAISHA Meza Attending Provider Stephen POSADAS, CUAUHTEMOC-C Yissel Attending Provider Zaida Gaston MD Primary Care Provider Hedervary BARREL DRAINER.Alana POWELL Unavailable AMARA SLOAN Attending Unavailable NIA JAMES Referring Unavailable ZAIDA GASTON Primary Care Unavailable Xiang Perez PA-C Unavailable Older BARREL DRAINER.Delia POWELL Unavailable Bogner PA-C, Amber Unavailable Ewa NORTON, Dr. Cerda Primary Care Provider Ewa NORTON, Dr. Cerda Referring Provider King CIERRA, Dr. Wilson Attending Provider Vicenta CLAIRE, Dr. Bhakta Referring Provider Vicenta CLAIRE, Dr. Bhakta Emergency Provider Ewa NORTON, Dr. Cerda Primary Care Provider Vicetna CLAIRE, Dr. Bhakta Attending Provider Provider Leona NORTON Unavailable Unavailable Ungdelmy CLAIRE, Dr. Muñoz Emergency Provider [facility], Verna Unavailable Leslie CLAIRE, Dr. Muñoz Attending Provider Schwedmond CLAIRE, Dr. Matthews Emergency Provider YONY SOLIS Referring Unavailable GANTA, ZAIDA Primary Care Unavailable CARLOS ANNE Admitting Unavailable SHANA CANTOR Attending Unavaila ble Nia James Attending Unavailable OLDER, DELIA Referring Unavailable GANTA, ZAIDA Primary Care Unavailable GANTA, ZAIDA Attending Unavailable GANTA, ZAIDA Primary Care Unavailable GANTA, ZAIDA Attending Unavailable GANTA, ZAIDA Primary Care Unavailable DONA MARTINEZ Admitting Unavailable DONA MARTINEZ Attending Unavailable GANTA, ZAIDA Primary Care Unavailable OLDER, DELIA Attending Unavailable GANTA, ZAIDA Primary Care Unavailable GANTA, ZAIDA Referring Unavailable GANTA, ZAIDA Primary Care Unavailable GANTA, ZAIDA Attending Unavailable GANTA, ZAIDA Primary Care Unavailable GANTA, ZAIDA Primary Care Unavailable OLDER, DELIA Attending Unavailable GANTA, ZAIDA Primary Care Unavailable Le, Yony Attending Unavailable Ganta, Zaida Primary Care Unavailable Ganta, Zaida Referring Unavailable Ladarius, Steve Attending Unavailable Ganta, Zaida Primary Care Unavailable Ganta, Zaida Primary Care Unavailable Ladarius, Steve Attending Unavailable Ganta, Zaida Referring Unavailable Yissel Willis Attending Unavailable Ganta, Zaida Referring Unavailable Ganta, Zaida Primary Care Unavailable Ganta, Zaida Referring Unavailable Ganta, Zaida Primary Care Unavailable LadariusSteve Attending Unavailable Ganta, Zaida Referring Unavailable Ganta, Zaida Primary Care Unavailable Ladarius, Steve Attending Unavailable Toni Nelson Attending Unavailable [facility] Primary Care Unavailable Yony Solis Attending Unavailable Yony Solis Referring Unavailable [facility] Primary Care Unavailable [facility] Primary Care Unavailable Byron Saldana Attending Unavailable Medications Current Medications Medication Drug Class(es) Dates Sig (Normalized) Sig (Original) >Compression Knee Highs 30-40 mm (20 sources) Start: 11-26-2017 >Compression Knee Highs 30-40 mm KNEE HIGH COMPRESSION STOCKINGS, 30-40 MM, I DX: EDEMA 1 Each 1 11/26/2017 Active Comment on above: KNEE HIGH COMPRESSIO N STOCKINGS, 30-40 MM, I DX: EDEMA apixaban 2.5 mg oral tablet (1 source) Factor Xa Inhibitor Start: 09-20-2021 take 1 tablet by mouth twice daily Apixaban (Eliquis) 2.5 mg tablet Active 2.5 MG PO TWICE A DAY September 20, 2021 1:27pm aspirin 81 mg chewable tablet (20 sources) Platelet Aggregation Inhibitor, Nonsteroidal Anti-inflammatory Drug Start: 08-21-2018 End: 03-15-2026 take 1 tablet by mouth once daily aspirin 81 mg chewable tablet chew and swallow 1 tablet by mouth once daily. 90 tablet 3 03/15/2025 03/15/2026 Active Start: 11-19-2017 End: 12-26-2017 take 1 tablet by mouth once daily Aspirin 81 MG tablet,chewable Discontinued 81 mg PO DAILY November 19, 2017 12:00am December 26, 2017 9:33am health maintenance Comment on above: chew and swallow 1 t ablet by mouth once daily. Blood-Glucose Meter monitoring kit (20 sources) Start: 06-28-2021 Blood-Glucose Meter monitoring kit Indications: Uncontrolled type 2 diabetes mellitus with complication, with long-term current use of insulin Glucose Meter of Choice, One Touch Verio preferred - Kit - Dx E11.8 Insulin Dependent, Test blood sugar three times a day 1 Each 06/28/2021 Active Start: 06-28-2021 Blood-Glucose Meter monitoring kit Indications: Uncontrolled type 2 diabetes mellitus with complication, with long-term current use of insulin Glucose Meter of Choice, One Touch Verio preferred - Kit - Dx E11.8 Insulin Dependent, Test blood sugar three times a day 1 Each 0 06/28/2021 Active Comment on above: Glucose Meter of Frederic fitzpatrick, One Touch Juan A preferred - Kit - Dx E11.8 Insulin Dependent, Test blood sugar three times a day Blood-Glucose Meter,Continuous (DEXCOM G6 OFFICER CAPTAIN) misc (16 sources) Start: 05-18-20 24 Blood-Glucose Meter,Continuous (DEXCOM G6 OFFICER CAPTAIN) misc Indications: Diabetic polyneuropathy associated with type 2 diabetes mellitus (HCC) , Type 1 diabetes mellitus on insulin therapy (HCC) 1 Each continuous. 1 Each 05/18/2024 Active Blood-Glucose Sensor (DEXCOM G6 SENSOR) glenn (16 sources) Start: 05-18-20 24 Blood-Glucose Sensor (DEXCOM G6 SENSOR) glenn Indications: Diabetic polyneuropathy associated with type 2 diabetes mellitus (HCC) , Type 1 diabetes mellitus on insulin therapy (HCC) 1 Each continuous. 9 Each 3 05/18/2024 Active Blood-Glucose Transmitter (DEXCOM G6 TRANSMITTER) glenn (16 sources) Start: 05-18-20 24 Blood-Glucose Transmitter (DEXCOM G6 TRANSMITTER) glenn Indications: Diabetic polyneuropathy associated with type 2 diabetes mellitus (HCC) , Type 1 diabetes mellitus on insulin therapy (HCC) 1 Each continuous. 1 Each 05/18/2024 Active 24 hr buPROPion hydrochloride 150 mg extended release oral tablet (20 sources) Aminoketone Start: 03-15-20 25 take 1 tablet by mouth once daily buPROPion XL (WELLBUTRIN XL) 150 mg 24 hr tablet Indications: Moderate episode of recurrent major depressive disorder (HCC) Take 1 tablet by mouth once daily. 90 tablet 1 03/15/2025 Active Start: 07-13-2024 End: 03-15-2025 take 1 tablet by mouth once daily buPROPion XL (WELLBUTRIN XL) 300 mg 24 hr tablet Indications: Moderate episode of recurrent major depressive disorder (HCC) Take 1 tablet by mouth once daily. 90 tablet 3 07/13/2024 03/15/2025 Discontinued Start: 03-24-2024 take 1 tablet by jermaine th four times daily Bupropion Hcl 75 mg tablet Active 75 mg PO .QID March 24, 2024 12:00am Start: 08-28-2023 End: 03-10-2025 take 1 tablet by mouth once daily buPROPion (WELLBUTRIN) 75 mg tablet Indications: Moderate episode of recurrent major depressive disorder (HCC) Take 1 tablet by mouth once daily. 90 tablet 3 07/13/2024 Active Start: 02-25-2023 End: 08-19-2023 take 1 tablet by mouth once daily buPROPion (WELLBUTRIN) 75 mg tablet Indications: Moderate episode of recurrent major depressive disorder (HCC) Take 1 tablet by mouth once daily. The 75 is in addition to the current dose of 300 mgs. 30 tablet 2 05/21/2023 Active Start: 11-01-2022 End: 03-24-2024 Bupropion Hcl 300 mg tablet extended release 24 hr Discontinued 375 mg PO DAILY November 01, 2022 1:00am March 24, 2024 11:31am MOOD Start: 11-01-2022 End: 07-13-2024 take 1 tablet by mouth once daily buPROPion XL (WELLBUTRIN XL) 300 mg 24 hr tablet Indications: Moderate episode of recurrent major depressive disorder (HCC) Take 1 tablet by mouth once daily. 90 tablet 3 07/13/2024 Active Start: 10-09-2021 End: 11-21-2022 take 1 tablet by mouth once daily buPROPion XL (WELLBUTRIN XL) 300 mg 24 hr tablet Indications: Moderate episode of recurrent major depressive disorder (HCC) Take 1 tablet by mouth once daily. 90 tablet 3 11/21/2022 Active Start: 09-18-2021 Bupropion Hcl (Wellbutrin Xl) 150 mg Tablet Extended Release 24 Hr Active 300 MG PO DAILY September 18, 2021 12:00am Start: 08-26-2018 End: 08-11-2020 take 1 tablet by mouth once daily Bupropion Hcl 300 MG tablet extended release 24 hr Discontinued 300 mg PO DAILY August 26, 2018 1:00am August 11, 2020 2:02pm depression Comment on above: Take 1 tablet by jermaine th once daily. Take 1 tablet by jermaine th once daily. The 75 is in addition to the current dose of 300 mgs. TAKE 1 TABLET BY JERMAINE TH ONCE DAILY. TAKE IN ADDITION TO THE 300MG carvedilol 12.5 mg oral tablet (20 sources) alpha-Adrenergic Silvana, beta-Adrenergic Silvana Start: 01-28-2025 take 1 tablet by mouth twice daily carvedilol (COREG) 12.5 mg tablet Take 1 tablet by mouth two times a day. 180 tablet 1 01/28/2025 Active Start: 01-26-2025 End: 03-10-2025 take 1 tablet by mouth twice daily Carvedilol 25 mg tablet Discontinued 25 mg PO TWICE A DAY January 26, 2025 12:00am March 10, 2025 1:21pm Start: 12-08-2021 End: 01-22-2024 take 1 tablet by mouth twice daily Carvedilol 25 mg Tablet Discontinued 25 mg PO TWICE A DAY December 26, 2021 12:00am November 11, 2023 2:45pm HEART On Hold: Comment on above: [facility] cephalexin 500 mg oral capsule (20 sources) Cephalosporin Antibacterial Start: take 1 capsule by mouth every six hours Cephalexin 500 mg capsule Active 500 mg PO EVERY 6 HOURS 28 0 March 10, 2025 12:00am Start: 10-19-2021 End: 12-08-2021 take 1 capsule by mouth three times daily cephALEXin (KEFLEX) 500 mg capsule Take 1 capsule by mouth three times daily. 45 capsule 1 10/19/2021 12/08/2021 Discontinued Start: 10-01-2019 End: 10-08-2019 take 1 capsule by mouth every six hours Cephalexin 500 MG capsule Discontinued 500 mg PO EVERY 6 HOURS October 06, 2019 11:31am October 08, 2019 10:22am infected wound Start: 05-06-2017 End: 05-29-2017 take 1 capsule by mouth every six hours Cephalexin 500 MG capsule Discontinued 500 mg PO EVERY 6 HOURS 40 0 May 06, 2017 12:00am May 29, 2017 2:31pm Comment on above: Take 1 capsule by mo [facility] three times daily. Cholestyramine, Bulk, powd (20 sources) Start: 12-30-2024 take 1 g by mouth once daily Cholestyramine, Bulk, powd Take one(1) scoop dissolved in two(2) to six(6) ounces(oz) of fluid by mouth daily. 1 g 1 12/30/2024 Active Start: 04-01-2024 take 1 g by mouth once daily C holestyramine, Bulk, powd Take one(1) scoop dissolved in two(2) to six(6) ounces(oz) of fluid by mouth daily. 1 g 1 04/01/2024 Active CPAP (20 sources) Start: 01-28-2018 CPAP Initiate Auto PAP @ 5-20 cm of water with humidification. Mask (per patient preference) optional chin strap (if indicated) , filters, tubing, humidifier and lifetime supplies. 1 Device 01/28/2018 Active Start: 01-28-2018 CPAP Initiate Auto PAP @ 5-20 cm of water with humidification. Mask (per patient preference) optional chin strap (if indicated) , filters, tubing, humidifier and lifetime supplies. 1 Device 0 01/28/2018 Active Comment on above: Initiate Auto PAP @ 5-20 cm of water with humidification. Mask (per patient preference) optional chin strap (if indicated) , filters, tubing, humidifier and lifetime supplies. dexamethasone 6 mg oral tablet (1 source) Corticosteroid Start: 022 take 6 mg by mouth once daily Dexamethasone Active 6 MG PO DAILY September 20, 2021 1:21pm ergocalciferol 1.25 mg oral capsule (20 sources) Provitamin D2 Compound Start: 023 take 1 capsule by mouth every week ergocalciferol 50,000 unit capsule (VITAMIN D2, DRISDOL) Take 1 capsule by mouth one time a week. 12 capsule 07/22/2023 Active Comment on above: Take 1 capsule by [facility] one time a week. escitalopram 10 mg oral tablet (11 sources) Serotonin Reuptake Inhibitor Start: 025 take 1 tablet by mouth once daily escitalopram oxalate (LEXAPRO) 10 mg tablet Take 1 tablet by mouth once daily. 30 tablet 5 02/05/2025 Active FLUoxetine 10 mg oral capsule (20 sources) Serotonin Reuptake Inhibitor Start: 024 End: 025 take 1 capsule by mouth once daily FLUoxetine (PROZAC) 10 mg capsule Take 1 capsule by mouth once daily. 90 capsule 3 07/13/2024 03/15/2025 Discontinued fluticasone propionate 0.05 mg/actuat metered dose nasal spray (20 sources) Corticosteroid Start: 019 take 2 spray(s) nasal route once daily fluticasone (FLONASE) 50 mcg/actuation nasal spray Indications: Eustachian tube dysfunction, right Use 2 Sprays in each nostril once daily. 1 Bottle 2 03/06/2019 Active Comment on above: Use 2 Sprays in each nostril once daily. gabapentin 100 mg oral capsule (20 sources) Anti-epileptic Agent Start: End: 025 take 1 capsule by mouth once daily at bedtime gabapentin (NEURONTIN) 100 mg capsule Indications: neuropathic pain Take 1 capsule by mouth daily at bedtime for 180 days. 30 capsule 5 12/13/2023 Active Start: 07-15-2013 End: 08-11-2020 take 1 capsule by mouth three times daily at mealtime Gabapentin 300 MG capsule Discontinued 300 mg PO 3 TIMES DAILY WITH MEALS July 15, 2013 1:00am August 11, 2020 2:03pm neuropathy Comment on above: Take 1 capsule by mo uth daily at bedtime for 180 days. glucagon 3 mg nasal powder (20 sources) Antihypoglycemic Agent Start: 03-30-2021 glucagon 3 mg/actuation nasal spray (BAQSIMI) Use 1 [place] in the nose as needed for low blood sugar. May repeat after 15 minutes using a new device if there is no response. 3 Each 1 03/30/2021 Active Start: 03-30-2021 End: 08-23-2022 glucagon (GLUCAGON EMERGENCY KIT, HUMAN,) 1 mg injection Inject (1)one mg for insulin shock. 3 Each 1 03/30/2021 08/23/2022 Discontinued Comment on above: Use 1 [place] in the n ose as needed for low blood sugar. May repeat after 15 minutes using a new device if there is no response. Inject (1)one mg for insulin shock. 3 ml insulin lispro 50 unt/ml / insulin lispro protamine, human 50 unt/ml pen injector (20 sources) Insulin Analog Start: 03-08-20 25 inject 46 [IU] by subcutaneous injection once daily at breakfast, then inject 40 [IU] by subcutaneous injection once daily at lunch, then inject 50 [IU] by subcutaneous injection once daily at dinner insulin 50/50 lispro protamine-lispro units/mL (HUMALOG MIX 50-50 KWIKPEN) 100 unit/mL (50-50) pen Indications: Type 1 diabetes mellitus on insulin therapy (HCC) Inject 46 Units subcutaneously daily with breakfast AND 40 Units daily with lunch AND 50 Units daily with dinner. 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 07/15/2023 03/08/2025 Discontinued Start: 03-14-2023 End: 03-24-2024 Insulin Lispro Protamin-Lisp ro (Humalog Mix 50-50 Kwikpen) 100 unit/mL (50-50) insulin pen Discontinued 30 U SC DAILY March 14, 2023 12:00am March 24, 2024 11:58am Start: 03-14-2023 End: 03-24-2024 Insulin Lispro Protamin-Lisp ro (Humalog Mix 50-50 Kwikpen) 100 unit/mL (50-50) insulin pen Discontinued 40 U SC 0800,1800 March 14, 2023 12:00am March 24, 2024 11:57am Start: 01-14-2023 End: 03-14-2023 Insulin Lispro Protamin-Lisp ro (Humalog Mix 50-50 Kwikpen) 100 unit/mL (50-50) insulin pen Discontinued 45 U SC .tidcm 40.5 5 January 14, 2023 12:00am March 14, 2023 12:35am Type 2 diabetes mellitus with hyperglycemia Type 2 diabetes mellitus with hyperglycemia Comment on above: Inject 30 Units subc utaneously daily at bedtime. loperamide hydrochloride 2 mg oral capsule (20 sources) Opioid Agonist Start: 11-26-19 take 1 capsule by mouth every six hours as needed for diarrhea and diarrhea loperamide (IMODIUM) 2 mg cap(s) Indications: Diarrhea, unspecified type Take 1 capsule by mouth four times a day as needed. 90 capsule 1 11/26/2023 Active Comment on above: Take 1 capsule by [facility] four times a day as needed. losartan potassium 25 mg oral tablet (20 sources) Angiotensin 2 Receptor Silvana Start: 01-13-20 24 take 2 tablets by mouth once daily losartan (COZAAR) 25 mg tablet Take 2 tablets by mouth once daily. 60 tablet 11 01/13/2024 Active Start: 03-08-2022 End: 03-10-2025 take 1 tablet by mouth once daily Losartan 25 mg tablet Discontinued 25 mg PO DAILY September 05, 2022 1:00am March 10, 2025 2:14pm BP Comment on above: Take 1 tablet by jermaine once daily. TAKE 1 TABLET BY JERMAINE ONCE DAILY MEDICAL SUPPLY (20 sources) Start: 10-03-2021 MEDICAL SUPPLY D/C oxygen 1 Each 10/03/2021 Active Start: 10-03-2021 MEDICAL SUPPLY D/C oxygen 1 Each 0 10/03/2021 Active Comment on above: D/C oxygen mycophenolic acid 180 mg delayed release oral tablet (20 sources) Antimetabolite Immunosuppressant Start: 025 End: 025 take 2 tablets by mouth twice daily mycophenolate sodium DR (MYFORTIC) 180 mg EC tablet TAKE TWO TABLETS BY MOUTH 2 TIMES A DAY 120 tablet 11 02/11/2025 Active Start: 01-13-2024 take 2 tablets by [facility] twice daily mycophenolate sodium DR (MYFORTIC) 180 mg EC tablet Take 2 tablets by mouth two times a day. 120 tablet 11 01/13/2024 Active pantoprazole 20 mg delayed release oral tablet (20 sources) Proton Pump Inhibitor Start: 09-18-2021 End: 03-10-2025 take 1 tablet by mouth once daily pantoprazole DR (PROTONIX) 20 mg tablet Indications: Gastroesophageal reflux disease without esophagitis Take 1 tablet by mouth once daily. 90 tablet 3 09/28/2024 Active Comment on above: Take 1 tablet by jermaine once daily. papaverine-phentola mine-alprostadil 15 MG - 0.5 MG - 5 MCG/mL injection (CPD) (8 sources) Start: 09-03-2023 End: 10-14-2023 papaverine-phentolamin e-alprostadil 15 MG - 0.5 MG - 5 MCG/mL injection (CPD) Indications: Impotence Inject 56 units into the intracavernosal region of the penis 2 Each 0 09/03/2023 10/14/2023 Discontinued Start: 09-03-2023 papaverine-phe ntolamine-alprostadil 15 MG - 0.5 MG - 5 MCG/mL injection (CPD) Indications: Impotence Inject 56 units into the intracavernosal region of the penis 2 Each 0 09/03/2023 Active Start: 08-13-2023 papaverine-phe ntolamine-alprostadil 15 MG - 0.5 MG - 5 MCG/mL injection (CPD) Indications: Impotence Inject 20 units into the intracavernosal region of the penis, MUST Bring medication to teaching appt cold 1 Each 0 08/13/2023 Active Comment on above: Inject 20 units into the intracavernosal region of the penis, MUST Bring medication to teaching appt cold Inject 56 units into the intracavernosal region of the penis polyethylene glycol 3350 616696 mg / potassium chloride 2970 mg / sodium bicarbonate 6740 mg / sodium chloride 5860 mg / sodium sulfate 80947 mg powder for oral solution (1 source) Osmotic Laxative Start: End: peg 3350-Electrolytes (GOLYTELY) 236-22.74-6.74 -5.86 gram suspension Indications: Diarrhea, unspecified type Take 4,000 mL by mouth one time only for 1 dose. Refer to printed prep instructions from your provider. 4000 mL 0 03/24/2024 03/24/2024 Active predniSONE 5 mg oral tablet (20 sources) Start: End: take 1 tablet by mouth once daily predniSONE (DELTASONE) 5 mg tablet Take 1 tablet by mouth once daily. 30 tablet 11 07/28/2024 Active Comment on above: Take 1 tablet by [facility] once daily. pseudoephedrine hydrochloride 30 mg oral tablet (20 sources) alpha-Adrenergic Agonist Start: pseudoephedrine (SUDAFED) 30 mg tablet Take Four 4 (30 mg) Tablets for an erection lasting more than 2 hours. If not improved in 1 hour MUST go to ER 12 tablet 1 08/20/2023 Active Comment on above: Take Four 4 (30 mg) Tablets for an erection lasting more than 2 hours. If not improved in 1 hour MUST go to ER sulfamethoxazole 800 mg / trimethoprim 160 mg oral tablet (20 sources) Dihydrofolate Reductase Inhibitor Antibacterial, Sulfonamide Antimicrobial Start: Sulfamethoxazole-Trim ethoprim 800-160 mg tablet Active 1 {tbl} PO TWICE A DAY 14 0 March 10, 2025 12:00am Start: 01-26-2025 Sulfamethoxazo le-Trimethoprim 400-80 mg tablet Active 1 {tbl} PO MOWEFR January 26, 2025 12:00am Start: 09-11-2023 End: 09-28-2024 take 1 tablet by mouth once sulfamethoxazole-trimethoprim (BACTRIM) 400-80 mg per tablet Take 1 tablet by mouth every Saturday, Saturday, and Saturday. 12 tablet 11 09/28/2024 Active Start: 03-20-2023 take 1 tablet by jermaine th once sulfamethoxazole-trimethoprim (BACTRIM) 400-80 mg per tablet Take 1 tablet by mouth every Saturday,Saturday,Saturday. 12 tablet 11 03/20/2023 Active Start: 09-05-2022 take 1 tablet by jermaine th once daily Sulfamethoxazole-Trimethoprim Active 1 T AB PO DAILY September 05, 2022 1:00am Start: 09-05-2022 Sulfamethoxazo le-Trimethoprim Active TAB PO September 05, 2022 12:00am Start: 03-11-2021 End: 03-24-2024 Sulfamethoxazole-Trimethopri m 400-80 mg tablet Discontinued 1 NMA PO DAILY September 05, 2022 1:00am March 24, 2024 11:32am INFECTION Comment on above: Take 1 tablet by jermaine th once daily. Take 1 tablet by jermaine th every Saturday,Saturday,Saturday. Take 1 tablet by jermaine th every Saturday, Saturday, and Saturday. tacrolimus 1 mg oral capsule (20 sources) Calcineurin Inhibitor Immunosuppressant Start: 01-31-20 take 1 capsule by mouth twice daily tacrolimus IR (PROGRAF) 1 mg capsule Take 1 capsule by mouth two times a day. Take one capsule at 6am and one capsule at 6pm Patient should start on January 30, 2025. 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 60 tablet 11 09/24/2022 10/11/2023 Discontinued Start: 09-18-2021 End: 03-10-2025 take 1 tablet by mouth once daily, then take 1 tablet by mouth every twenty-four hours Tacrolimus (Envarsus Xr) 1 mg tablet extended release 24 hr Discontinued 1 mg PO DAILY September 18, 2021 1:00am March 10, 2025 2:14pm rejection med Start: 09-18-2021 take 1 tablet by jermaine th once daily, then take 1 mg by mouth every twenty-four hours Tacrolimus (Envarsus Xr) 1 mg tablet extended release 24 hr Active 2 mg PO DAILY September 18, 2021 1:00am Comment on above: Take 2 tablets by mo uth once daily. Take 1 tablet by jermaine th once daily. take two tablets by mouth once daily Take 3 tablets by mo uth once daily. Completed/Discontinued Medications Medication Drug Class(es) Dates Sig (Normalized) Sig (Original) acetaminophen 500 mg oral tablet (20 sources) Start: 11-01-2022 End: 03-10-2025 take 1 tablet by mouth every four hours as needed for pain Acetaminophen 500 mg Tablet Discontinued 500 mg PO Q4H as needed for Pain November 01, 2022 1:00am March 10, 2025 2:13pm Start: 11-01-2022 take 2 tablets by mo uth every four hours as needed for pain Acetaminophen 500 mg Tablet Active 1000 mg PO Q4H as needed for Pain November 01, 2022 1:00am Start: 11-01-2022 take 1000 mg by mout h every four hours Acetaminophen Active 1000 MG PO Q4H November 01, 2022 1:00am Start: 08-26-2018 take 1000 mg by mout h every six hours as needed Acetaminophen Active 1000 MG PO EVERY 6 HOURS NEEDED August 26, 2018 8:49pm Start: 12-17-2017 End: 01-20-2018 take 2 tablets by mouth once daily Acetaminophen (Tylenol Extra Strength) 500 mg tablet Discontinued 1000 mg PO daily December 17, 2017 12:00am January 20, 2018 4:41pm take 1000 mg by mout h twice daily for pain ACETAMINOPHEN ORAL Take by mouth. 1000 mg bid for pain / aches Active Comment on above: Take by mouth. 1000 mg bid for pain / aches acetaminophen 325 mg / HYDROcodone bitartrate 5 mg oral tablet (20 sources) Opioid Agonist Start: 08-08-2018 End: 08-10-2018 Hydrocodone-Acetaminophen 1 TABLET tablet Discontinued 1 {tbl} PO EVERY 6 HOURS NEEDED as needed for Pain 5 2 0 August 08, 2018 1:00am August 09, 2018 1:00am August 10, 2018 1:10am Postoperative pain Other acute postprocedural pain Start: 08-08-2018 End: 08-10-2018 take 1 tablet by mouth every six hours as needed Hydrocodone-Acetaminophen Discontinued 1 TABLET PO EVERY 6 HOURS NEEDED 5 2 August 08, 2018 1:00am August 10, 2018 1:10am Albuterol (20 sources) beta2-Adrenergic Agonist Start: 12-06-2017 End: 02-19-2018 take 1 puff(s) by inhalation every four hours as needed Albuterol Sulfate Discontinued 2 PUFF INHALATION EVERY 4 HOURS NEEDED December 06, 2017 2:11pm February 19, 2018 4:41pm Start: 12-06-2017 End: 02-19-2018 Albuterol Sulfate 1 INHALER inhaler Discontinued 2 NMA INHALATION EVERY 4 HOURS NEEDED as needed for Sob &/Or Wheezing 1 0 December 06, 2017 12:00am February 19, 2018 4:41pm Acute respiratory failure with hypoxia Acute respiratory failure with hypoxia Start: 12-06-2017 End: 02-19-2018 Albuterol Sulfate 1 INHALER inhaler Discontinued 2 NMA INHALATION EVERY 4 HOURS NEEDED as needed for Sob &/Or Wheezing December 06, 2017 12:00am February 19, 2018 4:41pm Start: 12-06-2017 End: 02-19-2018 take 1 puff(s) by inhalation every four hours as needed Albuterol Sulfate Discontinued 2 PUFF INHALATION EVERY 4 HOURS NEEDED December 05, 2017 11:00pm February 19, 2018 3:41pm Start: 12-06-2017 End: 02-19-2018 take 1 puff(s) by inhalation every four hours as needed Albuterol Sulfate Discontinued 2 PUFF INHALATION EVERY 4 HOURS NEEDED December 06, 2017 12:00am February 19, 2018 4:41pm amLODIPine 10 mg oral tablet (20 sources) Dihydropyridine Calcium Channel Silvana Start: 03-14-2021 End: 07-05-2022 take 1 tablet by mouth once daily amLODIPine (NORVASC) 10 mg tablet Indications: hypertension Take 1 tablet by mouth once daily. 90 tablet 3 03/14/2021 07/05/2022 Discontinued (Course of therapy completed) Start: 08-29-2018 take 10 mg by mouth once daily Amlodipine Active 10 MG PO DAILY 0 August 29, 2018 12:33pm Start: 08-26-2018 End: 08-29-2018 take 1 tablet by mouth once daily Amlodipine 5 MG tablet Discontinued 5 mg PO DAILY August 26, 2018 9:01pm August 29, 2018 12:33pm BP Start: 08-25-2018 End: 08-26-2018 take 2 tablets by mouth once daily Amlodipine 5 MG tablet Discontinued 10 mg PO DAILY August 25, 2018 6:06pm August 26, 2018 9:02pm BP Start: 08-25-2018 End: 08-26-2018 take 10 mg by mouth once daily Amlodipine Discontinued 10 MG PO DAILY August 25, 2018 6:06pm August 26, 2018 9:02pm Start: 03-02-2018 End: 08-25-2018 take 1 tablet by mouth once daily Amlodipine 5 MG tablet Discontinued 5 mg PO DAILY March 02, 2018 12:00am August 25, 2018 6:06pm BP Start: 05-06-2017 End: 12-14-2017 take 1 tablet by mouth once daily Amlodipine 5 MG tablet Discontinued 5 mg PO DAILY May 06, 2017 12:00am December 14, 2017 6:02pm blood pressure Comment on above: Take 1 tablet by jermaine th once daily. amoxicillin 500 mg / clavulanate 125 mg oral tablet (20 sources) Penicillin-class Antibacterial Start: 12-27-19 End: 01-20-20 Amoxicillin-Pot Clavulanate (Augmentin) 500-125 mg tablet Discontinued 1 {tbl} PO TWICE A DAY 20 0 December 26, 2021 12:00am January 19, 2022 10:42am ampicillin 2000 mg / sulbactam 1000 mg injection (20 sources) Penicillin-class Antibacterial, beta Lactamase Inhibitor Start: 03-27-20 End: 08-17-20 Ampicillin-Sulbactam 3 gram Recon Soln Discontinued 3 g IV EVERY 8 HOURS 120 40 0 March 27, 2022 12:00am August 17, 2022 4:02pm stop date 05/05/22 dx: L foot osteomyelitis weekly bmp, cbc, vanc trough, and esr. Fax to [phone] routine picc care with heparin/saline flush per protocol atenolol 100 mg oral tablet (9 sources) beta-Adrenergic Silvana Start: 03-14-20 End: 03-10-20 take 1 tablet by mouth once daily Atenolol 100 mg tablet Discontinued 100 mg PO DAILY March 14, 2023 12:00am March 10, 2025 2:14pm Start: 11-28-2017 End: 12-08-2021 take 1 tablet by mouth once daily atenolol (TENORMIN) 100 mg tablet Take 1 tablet by mouth once daily. 90 tablet 3 09/27/2021 12/08/2021 Discontinued Comment on above: Take 1 tablet by jermaine once daily. atorvastatin 20 mg oral tablet (20 sources) HMG-CoA Reductase Inhibitor Start: 07-13-20 End: 09-06-20 take 1 tablet by mouth at bedtime Atorvastatin (Lipitor) 20 mg Tablet Discontinued 20 mg PO AT BEDTIME September 18, 2021 1:00am September 06, 2022 11:27am cholesterol Comment on above: Take 1 tablet by jermaine th at bedtime as needed. calcium chloride 0.0014 meq/ml / potassium chloride 0.004 meq/ml / sodium chloride 0.103 meq/ml / sodium lactate 0.028 meq/ml injectable solution (1 source) Start: 04-01-20 End: 04-01-20 lactated ringers iv infusion cefepime 1000 mg injection (20 sources) Cephalosporin Antibacterial Start: 10-08-19 End: 11-17-19 Cefepime 1 GM recon soln Discontinued 2 g IV DIRECTED October 08, 2019 1:00am November 16, 2019 12:00am November 17, 2019 12:08am stop date 11/16/19 Doses to be given at end of HD sessions 2gm on Mon, 2gm on Sat, 3gm on Sat Start: 10-08-2019 End: 11-17-2019 Cefepime Discontinued 2 GM I V DIRECTED October 08, 2019 1:00am November 17, 2019 12:08am stop date 11/16/19 Doses to be given at end of HD sessions 2gm on Mon, 2gm on Sat, 3gm on Sat cholecalciferol 0.025 mg oral capsule (20 sources) Vitamin D Start: 12-26-2021 End: 03-10-2025 Cholecalciferol (Vitamin D3) (Vitamin D3) 25 mcg (1,000 unit) Capsule Discontinued 25 ug PO December 26, 2021 12:00am March 10, 2025 2:14pm SUPPLEMENT' Start: 12-26-2021 Cholecalcifero l (Vitamin D3) (Vitamin D3) 25 mcg (1,000 unit) Capsule Active 50 ug PO December 26, 2021 12:00am End: 07-22-2023 take 1 tablet by mouth every twenty-four hours cholecalciferol (VITAMIN D3) 1,000 unit tab tablet Take 1 tablet by mouth q 24 HR. 0 07/22/2023 Discontinued Comment on above: Take 1 tablet by jermaine th q 24 HR. ciprofloxacin 500 mg oral tablet (20 sources) Quinolone Antimicrobial Start: 11-05-19 End: 01-15-20 take 1 tablet by mouth twice daily Ciprofloxacin Hcl (Cipro) 500 mg tablet Discontinued 500 mg PO TWICE A DAY 14 0 November 05, 2022 1:00am January 14, 2023 9:39am Start: 12-22-2017 End: 01-20-2018 take 1 tablet by mouth twice daily Ciprofloxacin Hcl 250 MG tablet Discontinued 250 mg PO TWICE A DAY 14 December 22, 2017 12:00am January 20, 2018 4:29pm docusate sodium 100 mg oral capsule (20 sources) Start: 09-18-2021 End: 01-26-2025 take 1 capsule by mouth once daily as needed for constipation Docusate Sodium (Colace) 100 mg capsule Discontinued 100 mg PO DAILY as needed for constipation January 14, 2023 9:39am January 26, 2025 5:28pm doxycycline hyclate 100 mg oral capsule (20 sources) Tetracyclin e-class Drug Start: 11-05-2022 End: 01-14-2023 take 1 capsule by mouth twice daily Doxycycline Hyclate 100 mg capsule Discontinued 100 mg PO TWICE A DAY 14 November 05, 2022 1:00am January 14, 2023 9:40am Start: 12-26-2021 End: 01-19-2022 take 1 capsule by mouth twice daily Doxycycline Hyclate 100 mg capsule Discontinued 100 mg PO TWICE A DAY 20 December 26, 2021 12:00am January 19, 2022 10:42am Dulaglutide (20 sources) GLP-1 Receptor Agonist Start: 07-17-2024 End: 03-10-2025 Dulaglutide (Trulicity) 4.5 mg/0.5 mL pen injector Discontinued 4.5 mg SC EVERY WEEK 6 July 17, 2024 1:32pm March 10, 2025 2:14pm Start: 07-17-2024 Dulaglutide (T rulicity) 4.5 mg/0.5 mL pen injector Active 4.5 mg SC EVERY WEEK July 17, 2024 1:32pm Start: 03-24-2024 End: 07-17-2024 Dulaglutide (Trulicity) 4.5 mg/0.5 mL pen injector Discontinued 4.5 mg SC EVERY WEEK 6 March 24, 2024 12:00am July 17, 2024 1:33pm Start: 03-24-2024 End: 07-17-2024 Dulaglutide (Trulicity) 4.5 mg/0.5 mL pen injector Discontinued 4.5 mg SC EVERY WEEK 6 March 24, 2024 12:00am July 17, 2024 1:33pm Start: 01-02-2024 End: 03-24-2024 Dulaglutide (Trulicity) 3 mg /0.5 mL pen injector Discontinued 3 mg SC EVERY WEEK 2 5 January 02, 2024 12:00am March 24, 2024 11:59am Type 2 diabetes mellitus with hyperglycemia Type 2 diabetes mellitus with hyperglycemia Start: 01-02-2024 End: 03-24-2024 Dulaglutide (Trulicity) 3 mg /0.5 mL pen injector Discontinued 3 mg SC EVERY WEEK 2 January 02, 2024 12:00am March 24, 2024 11:59am Start: 01-02-2024 Dulaglutide (T rulicity) 3 mg/0.5 mL pen injector Active 3 MG SC EVERY WEEK 2 January 02, 2024 12:00am Start: 07-25-2023 End: 01-02-2024 Dulaglutide (Trulicity) 1.5 mg/0.5 mL pen injector Discontinued 1.5 mg SC EVERY WEEK 2 3 October 24, 2023 11:57am January 02, 2024 11:08am Type 2 diabetes mellitus with hyperglycemia Type 2 diabetes mellitus with hyperglycemia Start: 04-25-2023 End: 07-25-2023 Dulaglutide (Trulicity) 0.75 mg/0.5 mL pen injector Discontinued 0.75 mg SC EVERY WEEK 2 2 April 25, 2023 12:00am July 25, 2023 12:30pm Comment on above: Inject 0.75 mg subcu taneously one time a week. furosemide 40 mg oral tablet (20 sources) Loop Diuretic Start: 2 End: 2 take 1 tablet by mouth once daily furosemide (LASIX) 40 mg tablet Take 1 tablet by mouth once daily. 60 tablet 2 10/19/2021 12/08/2021 Discontinued Start: 08-25-2018 End: 10-06-2019 take 1 tablet by mouth twice daily Furosemide 80 MG tablet Discontinued 80 mg PO BID@1000,1800 30 0 August 25, 2018 1:00am October 06, 2019 11:31am Start: 08-21-2018 End: 08-25-2018 take 1 tablet by mouth twice daily Furosemide 20 MG tablet Discontinued 20 mg PO TWICE A DAY August 21, 2018 1:00am August 25, 2018 5:36pm water pill Start: 02-19-2018 End: 07-11-2018 Furosemide 40 mg tablet Disc ontinued 20 mg PO TWICE A DAY February 19, 2018 4:28pm July 11, 2018 9:01am Start: 02-19-2018 End: 07-11-2018 take 20 mg by mouth twice daily Furosemide Discontinued 20 MG PO TWICE A DAY February 19, 2018 4:28pm July 11, 2018 9:01am Start: 12-14-2017 End: 01-20-2018 take 1 tablet by mouth twice daily, then take 0.5 tablet by mouth twice daily Furosemide Discontinued 60 MG PO TWICE DAILY December 14, 2017 12:00am January 20, 2018 4:41pm 1 and 1/2 tablets twice a day. Start: 12-06-2017 End: 02-19-2018 take 1 tablet by mouth twice daily, then take 0.5 tablet by mouth twice daily Furosemide 40 MG tablet Discontinued 60 mg PO TWICE DAILY 90 December 14, 2017 12:00am January 20, 2018 4:41pm 1 and 1/2 tablets twice a day. Start: 11-28-2017 End: 12-05-2017 take 1 tablet by mouth once daily Furosemide 20 MG tablet Discontinued 20 mg PO DAILY November 28, 2017 12:00am December 05, 2017 11:04am diuretic Comment on above: Take 1 tablet by jermaine th once daily. hydrALAZINE hydrochloride 25 mg oral tablet (20 sources) Arteriolar Vasodilator Start: 2017 End: 2019 take 1 tablet by mouth three times daily Hydralazine 25 mg tablet Discontinued 25 mg PO THREE TIMES A DAY 90 0 August 29, 2018 12:33pm October 06, 2019 11:31am water pill hydroCHLOROthiazide 25 mg oral tablet (20 sources) Thiazide Diuretic Start: 2017 End: 2017 take 1 tablet by mouth once daily Hydrochlorothiazide 25 MG tablet Discontinued 25 mg PO DAILY November 28, 2017 12:00am December 05, 2017 11:06am BP Start: 05-06-2017 End: 11-21-2017 take 1 tablet by mouth once daily Hydrochlorothiazide 25 MG tablet Discontinued 25 mg PO DAILY May 06, 2017 12:00am November 21, 2017 7:32am diuretic/water pill 3 ml insulin aspart, human 100 unt/ml pen injector (20 sources) Insulin Analog Start: 03-02-2018 End: 08-25-2018 inject 10-14 [IU] by subcutaneous injection three times daily at mealtime Insulin Aspart U-100 100 UNITS/ML insulin pen Discontinued 10 - 14 U SQ 3 TIMES DAILY WITH MEALS March 02, 2018 12:02pm August 25, 2018 5:40pm bloodsugar Start: 03-02-2018 End: 08-25-2018 inject 5 [IU] by subcutaneous injection three times daily at mealtime Insulin Aspart U-100 (Novolog Flexpen U-100 Insulin) 100 UNITS/ML insulin pen Discontinued 5 U SQ 3 TIMES DAILY WITH MEALS 0 0 August 25, 2018 5:40pm August 25, 2018 6:04pm bloodsugar Start: 12-17-2017 End: 12-17-2017 Insulin Aspart U-100 (Novolo g U-100 Insulin Aspart) 100 unit/mL solution Discontinued 4 U SC THREE TIMES A DAY December 17, 2017 12:00am December 17, 2017 10:35am Type 2 diabetes mellitus without complications Start: 12-14-2017 End: 03-02-2018 Insulin Aspart U-100 (Novolo g Flexpen U-100 Insulin) 100 unit/mL insulin pen Discontinued 4 U SC THREE TIMES A DAY 15 December 18, 2017 8:43am March 02, 2018 12:02pm Type 2 diabetes mellitus with hyperglycemia Start: 12-14-2017 End: 12-17-2017 Insulin Aspart U-100 100 UNI TS/ML insulin pen Discontinued 4 U SC 3 TIMES DAILY WITH MEALS 1 0 December 14, 2017 6:56pm December 17, 2017 10:05am DM Start: 12-06-2017 End: 12-14-2017 Insulin Aspart U-100 Discont inued 15 UNITS SC 3 TIMES DAILY WITH MEALS 1 December 06, 2017 2:09pm December 14, 2017 6:56pm Start: 12-05-2017 End: 12-17-2017 Insulin Aspart U-100 100 UNI TS/ML insulin pen Discontinued 0 U SC BEFORE MEALS AND AT BEDTIME 0 December 05, 2017 12:00am December 17, 2017 10:05am Please contact the information source for Protocol details. Start: 12-05-2017 End: 12-17-2017 Insulin Aspart U-100 Discont inued 0 UNITS SC BEFORE MEALS AND AT BEDTIME December 05, 2017 12:00am December 17, 2017 10:05am Start: 11-21-2017 End: 12-14-2017 Insulin Aspart U-100 100 UNI TS/ML insulin pen Discontinued 15 U SC 3 TIMES DAILY WITH MEALS 1 0 December 06, 2017 2:09pm December 14, 2017 6:56pm DM Start: 11-21-2017 End: 11-28-2017 Insulin Aspart U-100 Discont inued 15 UNITS SC 3 TIMES DAILY WITH MEALS November 21, 2017 7:57am November 28, 2017 12:18pm Start: 05-06-2017 End: 11-21-2017 Insulin Aspart U-100 (Novolo g Flexpen U-100 Insulin) 100 UNITS/ML Flexpen Discontinued 15 U SC TWICE DAILY WITH MEALS May 06, 2017 12:00am November 21, 2017 7:57am sensor 3 ml insulin glargine 100 unt/ml pen injector (20 sources) Insulin Analog Start: 02-25-2023 End: 07-15-2023 insulin glargine (LANTUS SOLOSTAR U-100 INSULIN) 100 unit/mL (3 mL) Inject 44 Units subcutaneously twice daily. 0 02/25/2023 07/15/2023 Discontinued Start: 11-22-2022 End: 02-25-2023 insulin glargine (LANTUS ZAY OSTAR U-100 INSULIN) 100 unit/mL (3 mL) Inject 44 Units subcutaneously every morning. 15 mL 5 11/22/2022 02/25/2023 Discontinued (Adjust Sig - Block E-Cancel) Start: 10-04-2022 End: 11-22-2022 insulin glargine (LANTUS ZAY OSTAR U-100 INSULIN) 100 unit/mL (3 mL) Inject 48 Units subcutaneously every morning. 15 mL 5 10/04/2022 11/22/2022 Discontinued (Adjust Sig - Block E-Cancel) Start: 08-23-2022 End: 10-04-2022 insulin glargine (LANTUS ZAY OSTAR U-100 INSULIN) 100 unit/mL (3 mL) Inject 44 Units subcutaneously every morning. 15 mL 5 08/23/2022 10/04/2022 Discontinued (Adjust Sig - Block E-Cancel) Start: 08-11-2020 End: 01-14-2023 Insulin Glargine 100 unit/mL (3 mL) insulin pen Discontinued 44 U SC DAILY August 11, 2020 2:04pm January 14, 2023 3:28pm blood sugar Start: 08-11-2020 Insulin Glargi ne Active 44 UNIT SC AT BEDTIME August 11, 2020 1:04pm Start: 08-11-2020 End: 08-23-2022 Insulin Glargine Active 0 UN IT SC AT BEDTIME August 11, 2020 1:04pm Start: 08-11-2020 insulin glargi ne (LANTUS SOLOSTAR U-100 INSULIN) 100 unit/mL (3 mL) Inject 44 Units subcutaneously every morning. 15 mL 5 08/23/2022 Active Start: 08-11-2020 End: 07-13-2022 LANTUS SOLOSTAR U-100 INSULI N 100 unit/mL (3 mL) Inject 40 Units subcutaneously every morning. 15 mL 5 05/17/2022 07/13/2022 Discontinued Start: 08-11-2020 Insulin Glargi ne Active 36 UNIT SC AT BEDTIME August 11, 2020 2:04pm Start: 08-11-2020 Insulin Glargi ne Active 8 UNIT SC AT BEDTIME August 11, 2020 2:04pm Start: 10-08-2019 End: 08-11-2020 inject 8 [IU] by subcutaneous injection at bedtime Insulin Glargine 100 unit/mL (3 mL) insulin pen Discontinued 8 U SQ AT BEDTIME 1 0 October 08, 2019 11:08am August 11, 2020 2:05pm blood sugar Start: 07-11-2018 End: 10-08-2019 inject 2 [IU] by subcutaneous injection at bedtime Insulin Glargine 100 unit/mL (3 mL) insulin pen Discontinued 2 U SQ AT BEDTIME July 11, 2018 9:00am October 08, 2019 11:07am blood sugar Start: 03-02-2018 End: 07-11-2018 Insulin Glargine 100 UNIT/ML insulin pen Discontinued 5 U SC AT BEDTIME March 02, 2018 12:02pm July 11, 2018 9:01am Start: 12-17-2017 End: 12-17-2017 Insulin Glargine (Lantus U-1 00 Insulin) 100 unit/mL solution Discontinued 34 U SC AT BEDTIME December 17, 2017 12:00am December 17, 2017 10:35am Type 2 diabetes mellitus without complications Start: 12-17-2017 End: 03-02-2018 Insulin Glargine (Lantus Zay ostar U-100 Insulin) 100 unit/mL (3 mL) insulin pen Discontinued 34 U SC AT BEDTIME 15 December 18, 2017 8:44am March 02, 2018 12:02pm Type 2 diabetes mellitus with hyperglycemia Start: 12-14-2017 End: 12-17-2017 Insulin Glargine 100 UNITS/M L insulin pen Discontinued 35 U SC AT BEDTIME 0 0 December 14, 2017 6:56pm December 17, 2017 10:05am DM Start: 12-14-2017 End: 12-17-2017 Insulin Glargine Discontinue d 35 UNITS SC AT BEDTIME 0 December 14, 2017 6:56pm December 17, 2017 10:05am Start: 12-10-2017 End: 12-14-2017 Insulin Glargine (Lantus Zay ostar U-100 Insulin) 100 UNITS/ML Pen Discontinued 65 U SC AT BEDTIME December 10, 2017 5:17pm December 14, 2017 6:56pm DM Start: 12-06-2017 End: 12-10-2017 Insulin Glargine 100 UNITS/M L insulin pen Discontinued 40 U SC AT BEDTIME 1 0 December 06, 2017 2:09pm December 10, 2017 5:17pm DM Start: 12-06-2017 End: 12-10-2017 Insulin Glargine Discontinue d 40 UNITS SC AT BEDTIME 1 December 06, 2017 2:09pm December 10, 2017 5:17pm Start: 12-05-2017 End: 12-06-2017 Insulin Glargine (Lantus Zay ostar U-100 Insulin) 100 UNITS/ML Pen Discontinued 40 U SC AT BEDTIME 0 0 December 05, 2017 11:08am December 06, 2017 2:09pm DM Start: 07-15-2013 End: 12-05-2017 Insulin Glargine (Lantus Zay ostar U-100 Insulin) 100 UNITS/ML Pen Discontinued 60 U SC AT BEDTIME July 15, 2013 1:00am December 05, 2017 11:09am DM Comment on above: Inject 40 Units subc utaneously every morning. Inject 50 Units subc utaneously every morning. Inject 44 Units subc utaneously every morning. Inject 48 Units subc utaneously every morning. Inject 44 Units subc utaneously twice daily. 3 ml insulin lispro 100 unt/ml pen injector (20 sources) Insulin Analog Start: 11-22-2022 End: 06-18-2024 insulin lispro (HUMALOG KWIKPEN INSULIN) 100 unit/mL Inject 20 units plus sliding scale with breakfast, 16 units plus SS with lunch, and 20 units + SS with dinner as directed. For snacks, inject 8 units plus sliding scale (Sliding scale: 2 units for every 40 >180 mg/dL) 15 mL 3 11/22/2022 06/18/2024 Discontinued Start: 10-04-2022 End: 11-22-2022 insulin lispro (HUMALOG KWIK PEN INSULIN) 100 unit/mL Inject 16 units plus sliding scale with meals three times daily. For snacks, inject 8 units plus sliding scale (Sliding scale: 2 units for every 40 >180 mg/dL) 15 mL 3 10/04/2022 11/22/2022 Discontinued (Adjust Sig - Block E-Cancel) Start: 11-20-2021 End: 07-13-2022 insulin lispro (HUMALOG KWIK PEN INSULIN) 100 unit/mL INJECT 10 UNITS DIRECTED BREAKFAST, LUNCH, AND DINNER PLUS SLIDING SCALE (MAX 50 UNITS PER DAY) 15 mL 3 04/25/2022 07/13/2022 Discontinued (Adjust Sig - Block E-Cancel) Start: 10-06-2019 inject 1 [IU] by sub cutaneous injection at bedtime Insulin Lispro Active UNIT SQ BEFORE MEALS AND AT BEDTIME October 06, 2019 10:31am Start: 08-25-2018 End: 01-14-2023 Insulin Lispro 100 UNIT/ML insulin pen Discontinued 0 U SC BEFORE MEALS AND AT BEDTIME 1 0 October 08, 2019 1:00am August 11, 2020 2:04pm Please contact the information source for Protocol details. Comment on above: INJECT 10 UNITS D IRECTED BREAKFAST, LUNCH, AND DINNER PLUS SLIDING SCALE (MAX 50 UNITS PER DAY) INJECT 12 to 14 UNIT S DIRECTED BREAKFAST, LUNCH, AND DINNER PLUS SLIDING SCALE (MAX 50 UNITS PER DAY) Inject 16 units plus sliding scale with meals three times daily. For snacks, inject 8 units plus sliding scale (Sliding scale: 2 units for every 40 >180 mg/dL) Inject 20 units plus sliding scale with breakfast, 16 units plus SS with lunch, and 20 units + SS with dinner as directed. For snacks, inject 8 units plus sliding scale (Sliding scale: 2 units for every 40 >180 mg/dL) lisinopril 20 mg oral tablet (20 sources) Angiotensin Converting Enzyme Inhibitor Start: 8 End: 8 take 2 tablets by mouth once daily Lisinopril 20 MG tablet Discontinued 40 mg PO DAILY November 28, 2017 11:02am December 05, 2017 11:05am BP Start: 11-28-2017 End: 12-05-2017 take 40 mg by mouth once daily Lisinopril Discontinued 40 MG PO DAILY November 28, 2017 11:02am December 05, 2017 11:05am Start: 11-21-2017 End: 11-28-2017 take 1 tablet by mouth once daily Lisinopril 20 MG tablet Discontinued 20 mg PO DAILY 30 0 November 21, 2017 12:00am November 28, 2017 11:02am Start: 05-06-2017 End: 11-21-2017 take 1 tablet by mouth once daily Lisinopril 40 MG tablet Discontinued 40 mg PO DAILY May 06, 2017 12:00am November 21, 2017 7:33am blood pressure metoclopramide 5 mg oral tablet (4 sources) Dopamine-2 Receptor Antagonist Start: 11-19-2024 End: 03-10-2025 take 1 tablet by mouth every six hours as needed Metoclopramide Hcl (Reglan) 5 mg tablet Discontinued 5 mg PO EVERY 6 HOURS as needed for vertigo 10 0 November 19, 2024 5:31pm March 10, 2025 2:14pm metoprolol tartrate 25 mg oral tablet (20 sources) beta-Adrenergic Silvana Start: 11-19-2017 End: 11-21-2017 take 1 tablet by mouth twice daily Metoprolol Tartrate 25 MG tablet Discontinued 25 mg PO TWICE A DAY November 19, 2017 12:00am November 21, 2017 7:33am blood pressure metroNIDAZOLE 500 mg oral tablet (20 sources) Nitroimidazole Antimicrobial Start: 10-08-2019 End: 11-17-2019 take 1 tablet by mouth three times daily Metronidazole 500 MG tablet Discontinued 500 mg PO THREE TIMES A DAY 120 40 0 October 08, 2019 1:00am November 16, 2019 12:00am November 17, 2019 12:08am mycophenolate mofetil 250 mg oral capsule (20 sources) Start: 07-15-2023 End: 01-13-2024 take 2 capsules by mouth twice daily mycophenolate mofetil (CELLCEPT) 250 mg capsule Take 2 capsules by mouth two times a day. 120 capsule 11 07/15/2023 01/13/2024 Discontinued Start: 09-24-2022 End: 07-15-2023 take 1 capsule by mouth twice daily mycophenolate mofetil (CELLCEPT) 250 mg capsule Take 1 capsule by mouth twice daily. 60 capsule 11 09/24/2022 07/15/2023 Discontinued Start: 09-18-2021 take 3 capsules by m outh twice daily Mycophenolate Mofetil (Cellcept) 250 mg Capsule Active 750 MG PO TWICE A DAY September 18, 2021 10:50am Start: 09-18-2021 End: 09-24-2022 take 2 capsules by mouth twice daily Mycophenolate Mofetil (Cellcept) 250 mg Capsule Discontinued 500 mg PO TWICE A DAY September 18, 2021 1:00am September 06, 2022 11:28am [facility] Comment on above: Take 2 capsules by m outh twice daily. Take 1 capsule by mo uth twice daily. Take 2 capsules by m outh two times a day. ondansetron 4 mg disintegrating oral tablet (17 sources) Serotonin-3 Receptor Antagonist Start: 06-25-20 End: 07-05-20 take 1 tablet by mouth every eight hours as needed ondansetron orally disintegrating (ZOFRAN ODT) 4 mg disintegrating tablet Take 1 tablet by mouth every 8 hours as needed for Nausea/Vomiting. 3 tablet 0 06/25/2018 07/05/2022 Discontinued (Course of therapy completed) Comment on above: Take 1 tablet by jermaine every 8 hours as needed for Nausea/Vomiting. papaverine-phentolamin e-alprostadil 30 MG - 1 MG - 10 MCG/ML injection (CPD) (20 sources) Start: 10-14-19 End: 06-18-20 papaverine-phentolamine -alprostadil 30 MG - 1 MG - 10 MCG/ML injection (CPD) Inject 30 units into the intracavernosal region of the penis 5 mL 4 10/14/2023 06/18/2024 Discontinued Start: 10-14-2023 papaverine-phe ntolamine-alprostadil 30 MG - 1 MG - 10 MCG/ML injection (CPD) Inject 30 units into the intracavernosal region of the penis 5 mL 4 10/14/2023 Active Comment on above: Inject 30 units into the intracavernosal region of the penis potassium chloride 10 meq extended release oral capsule (20 sources) Start: 11-29-19 End: 12-06-19 take 1 capsule by mouth twice daily Potassium Chloride 10 MEQ Capsule.Er Discontinued 10 meq PO TWICE A DAY November 28, 2017 12:00am December 05, 2017 11:07am replacement Semaglutide (6 sources) Start: 04-17-20 End: 04-25-20 Semaglutide (Ozempic) 0.25 mg or 0.5 mg (2 mg/3 mL) pen injector Discontinued 0.25 mg SC EVERY WEEK 3 April 17, 2023 12:00am April 25, 2023 7:48am Type 2 diabetes mellitus with diabetic polyneuropathy Type 2 diabetes mellitus with diabetic polyneuropathy for 4 weeks Start: 04-17-2023 End: 04-25-2023 Semaglutide (Ozempic) 0.25 m g or 0.5 mg (2 mg/3 mL) pen injector Discontinued 0.25 mg SC EVERY WEEK 3 April 17, 2023 12:00am April 25, 2023 7:48am for 4 weeks Start: 04-17-2023 End: 04-25-2023 Semaglutide (Ozempic) 0.25 m g or 0.5 mg (2 mg/3 mL) pen injector Discontinued 0.25 MG SC EVERY WEEK 3 April 17, 2023 12:00am April 25, 2023 7:48am for 4 weeks tamsulosin hydrochloride 0.4 mg oral capsule (20 sources) alpha-Adrenergic Silvana Start: 12-06-2017 End: 01-20-2018 take 1 capsule by mouth twice daily Tamsulosin 0.4 MG capsule Discontinued 0.4 mg PO BID@0830,1730 December 10, 2017 7:00pm January 20, 2018 4:41pm prostate tiZANidine 2 mg oral tablet (20 sources) Central alpha-2 Adrenergic Agonist Start: 05-06-2017 End: 05-29-2017 take 1 tablet by mouth every six hours as needed for muscle spasms Tizanidine 2 MG tablet Discontinued 2 mg PO EVERY 6 HOURS as needed for Muscle Spasm May 06, 2017 12:00am May 29, 2017 2:29pm traMADol hydrochloride 50 mg oral tablet (20 sources) Opioid Agonist Start: 05-06-2017 End: 05-29-2017 take 1 tablet by mouth every six hours as needed for pain Tramadol (Ultram) 50 MG tablet Discontinued 50 mg PO EVERY 6 HOURS NEEDED as needed for Pain May 06, 2017 12:00am May 29, 2017 2:29pm 200 ml vancomycin 5 mg/ml injection (20 sources) Glycopeptide Antibacterial Start: 03-27-2022 End: 08-17-2022 Vancomycin In Dextrose 5 % 1 gram/200 mL Piggyback Discontinued 1000 mg IV Q12H 120 40 0 March 27, 2022 12:00am August 17, 2022 4:02pm stop date 05/05/22 dx: L foot osteomyelitis weekly bmp, cbc, vanc trough, and esr. Fax to [phone] routine picc care with heparin/saline flush per protocol Start: 10-08-2019 End: 11-17-2019 Vancomycin In 0.9 % Sodium C hl 750 MG/150 ML piggyback Discontinued 750 mg IV DIRECTED 17 40 0 October 08, 2019 1:00am November 16, 2019 12:00am November 17, 2019 12:08am dx: foot osteo 750mg iv vanc to be given after dialysis MWF weekly bmp, cbc, and vanc trough. Fax to [phone] Problems Active Problems Problem Classification Problem Date Documented Date Episodic/Chronic Anxiety disorders (20 sources) Mixed anxiety and depressive disorder; Translations: [Anxiety disorder, unspecified] Chronic Bacterial infection; unspecified site (20 sources) Gas gangrene of foot; Translations: [Gas gangrene] Episodic Blindness and vision defects (20 sources) Blind left eye; Translations: [Blindness, one eye, unspecified eye] Chronic Cardiac dysrhythmias (20 sources) Ectopic beats; Translations: [Other premature depolarization] 12-11-2018 Chronic Chronic kidney disease (20 sources) End stage renal failure on dialysis; Translations: [End stage renal disease] Onset: 11-26-2017 Resolved: 11-23-2022 12-16-2018 Chronic Chronic ulcer of skin (20 sources) Chronic ulcer of foot; Translations: [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 exposed] Chronic Complication of device; implant or graft (1 source) Leakage of nephrostomy catheter, initial encounter; Translations: [Leakage of nephrostomy catheter, initial encounter] Onset: 02-14-2025 Episodic Complications of surgical procedures or medical care (2 sources) Ostomy patient problem; Translations: [Malfunction of incontinent external stoma of urinary tract] 02-07-2025 Episodic Coronary atherosclerosis and other heart disease (20 sources) History of myocardial infarction; Translations: [Old myocardial infarction] Chronic Comment on above: Per cath 06/26/11- L AD 10% ostial stenosis, 10% proximal, 20- 30% distal stenosis, Ramus 10-20% mid stenosis, OM1 20-30% mid stenosis Diabetes mellitus with complications (20 sources) Insulin treated type 2 diabetes mellitus; Translations: [Uncontrolled type 2 diabetes mellitus with complication, with long-term current use of insulin] Onset: 04-17-2006 06-12-2016 Chronic Comment on above: Dx : 1993Discussed w ith patient need to check BG in pairs, [...] finds his current correction may be too strong.On statinOn asa Diabetes mellitus without complication (20 sources) Type 1 diabetes mellitus; Translations: [Type 1 diabetes mellitus without complications] Onset: 03-23-2021 03-23-2021 Chronic Diabetes mellitus without complication (20 sources) Hyperglycemia; Translations: [Hyperglycemia, unspecified] Onset: 02-05-2025 Episodic Disorders of lipid metabolism (20 sources) Hyperlipidemia; Translations: [Other hyperlipidemia] Onset: 04-17-2006 05-19-2018 Chronic Esophageal disorders (20 sources) Gastroesophageal reflux disease; Translations: [Gastro-esophageal reflux disease without esophagitis] Onset: 09-28-2024 12-11-2018 Chronic Essential hypertension (20 sources) Hypertensive disorder; Translations: [Essential (primary) hypertension] Onset: 04-17-2006 09-14-2016 Chronic Hypertension with complications and secondary hypertension (20 sources) Hypertensive emergency; Translations: [Hypertensive emergency] 12-11-2018 Chronic Immunity disorders (20 sources) Immunosuppression; Translations: [Immunodeficiency, unspecified] Onset: 01-22-2024 11-27-2023 Chronic Immunizations and screening for infectious disease (2 sources) Needs influenza immunization; Translations: [Encounter for immunization] Episodic Infective arthritis and osteomyelitis (except that caused by tuberculosis or sexually transmitted disease) (20 sources) Osteomyelitis of forefoot; Translations: [Osteomyelitis, unspecified] Chronic Mood disorders (20 sources) Recurrent major depressive episodes, moderate ; Translations: [Major depressive disorder, recurrent, moderate] Onset: 04-17-2006 Resolved: 04-02-2019 11-26-2017 Chronic Nutritional deficiencies (4 sources) Vitamin D deficiency; Translations: [Vitamin D deficiency, unspecified] Onset: 09-28-2024 07-15-2023 Chronic Open wounds of extremities (1 source) Amputated little toe; Translations: [Complete traumatic amputation of one unspecified lesser toe, initial encounter] Chronic Other aftercare (20 sources) Transplant follow-up; Translations: [Other jail (current) drug therapy] Onset: 01-27-2025 Episodic Other aftercare (3 sources) Patient encounter status; Translations: [Other 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 (current) drug therapy] Episodic Other aftercare (1 source) Taking high risk medication; Translations: [Other 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 (current) drug therapy] 07-25-2023 Episodic Other aftercare (16 sources) Long-term current use of tacrolimus; Translations: [Encounter for therapeutic drug level monitoring] Onset: 01-27-2025 01-27-2025 Episodic Other aftercare (1 source) Post-discharge follow-up; Translations: [Encounter for follow-up examination after completed treatment for conditions other than malignant neoplasm] 02-05-2025 Episodic Other aftercare (1 source) Other jail (current) drug therapy; Translations: [Medication management] Onset: 03-08-2025 Episodic Other aftercare (1 source) Encounter for follow-up examination after completed treatment for conditions other than malignant neoplasm; Translations: [Hospital discharge follow-up] Onset: 02-05-2025 Episodic Other bone disease and musculoskeletal deformities (9 sources) History of amputation of left foot; Translations: [Acquired absence of left foot] 11-05-2022 Chronic Other bone disease and musculoskeletal deformities (2 sources) Acquired absence of left foot; Translations: [Foot amputation status] 11-05-2022 Chronic Other bone disease and musculoskeletal deformities (20 sources) Acquired absence of other left toe(s); Translations: [Other toe(s) amputation status] Episodic Other circulatory disease (20 sources) Peripheral vascular disease; Translations: [Other specified peripheral vascular diseases] 12-01-2019 Chronic Other circulatory disease (20 sources) Other specified peripheral vascular diseases; Translations: [Other specified peripheral vascular diseases] Chronic Other circulatory disease (20 sources) H/O: heart disorder; Translations: [Personal history of other diseases of the circulatory system] 11-01-2022 Episodic Other connective tissue disease (20 sources) Necrotizing fasciitis; Translations: [Necrotizing fasciitis] Episodic Other connective tissue disease (2 sources) Necrotizing fasciitis; Translations: [Necrotizing fasciitis] Episodic Other connective tissue disease (2 sources) Pain in right lower limb; Translations: [Pain in right leg] Episodic Other diseases of kidney and ureters (4 sources) Renal impairment; Translations: [Disorder of kidney and ureter, unspecified] 11-19-2024 Episodic Other diseases of kidney and ureters (1 source) Unspecified hydronephrosis; Translations: [Hydronephrosis, unspecified hydronephrosis type] Onset: 01-29-2025 Episodic Other diseases of veins and lymphatics (20 sources) Lymphedema of right lower limb; Translations: [Lymphedema, not elsewhere classified] 05-03-2021 Chronic Other endocrine disorders (13 sources) Hypoglycemia; Translations: [Hypoglycemia, unspecified] 09-05-2022 Chronic Other hematologic conditions (2 sources) Secondary polycythemia; Translations: [Secondary polycythemia] Episodic Other liver diseases (1 source) Enzyme level - finding; Translations: [Transaminitis] Episodic Other liver diseases (1 source) Alkaline phosphatase raised; Translations: [Abnormal levels of other serum enzymes] 05-21-2023 Episodic Other liver diseases (6 sources) Elevated liver enzymes level; Translations: [Abnormal levels of other serum enzymes] 01-06-2024 Episodic Other male genital disorders (20 sources) Male erectile dysfunction, unspecified; Translations: [Impotence of organic origin] Onset: 09-30-2014 09-30-2014 Chronic Other male genital disorders (2 sources) Secondary erectile dysfunction; Translations: [Male erectile dysfunction, unspecified] 08-20-2023 Chronic Other nervous system disorders (2 sources) Polyneuropathy; Translations: [Polyneuropathy, unspecified] 07-25-2023 Chronic Other nervous system disorders (2 sources) Polyneuropathy, unspecified; Translations: [Unspecified hereditary and idiopathic peripheral neuropathy] 10-24-2023 Chronic Other nutritional; endocrine; and metabolic disorders (20 sources) Body mass index 30+ - obesity; Translations: [Obesity, unspecified] 12-11-2018 Chronic Other nutritional; endocrine; and metabolic disorders (13 sources) Obesity, unspecified; Translations: [Obesity, unspecified] Chronic Other nutritional; endocrine; and metabolic disorders (7 sources) Overweight; Translations: [Overweight] 07-25-2023 Episodic Peripheral and visceral atherosclerosis (1 source) Intermittent claudication; Translations: [Peripheral vascular disease, unspecified] Chronic Residual codes; unclassified (2 sources) Obstructive sleep apnea syndrome; Translations: [Obstructive sleep apnea (adult) (pediatric)] 09-22-2023 Chronic Residual codes; unclassified (20 sources) Noncompliance with treatment; Translations: [Patient's noncompliance with other medical treatment and regimen] 04-05-2022 Episodic Residual codes; unclassified (20 sources) Peripheral edema; Translations: [Edema, unspecified] 03-03-2018 Episodic Residual codes; unclassified (1 source) Patient's noncompliance with other medical treatment and regimen; Translations: [Personal history of noncompliance with medical treatment, presenting hazards to health] Episodic Residual codes; unclassified (1 source) Family history of cancer of colon; Translations: [Family history of malignant neoplasm of digestive organs] 03-24-2024 Episodic Septicemia (except in labor) (20 sources) Sepsis; Translations: [Sepsis, unspecified organism] Episodic Skin and subcutaneous tissue infections (20 sources) Cellulitis of lower limb; Translations: [Cellulitis of left lower limb] Onset: 03-17-2025 Episodic Substance-related disorders (20 sources) Nicotine dependence; Translations: [Nicotine dependence, chewing tobacco, uncomplicated] 07-13-2019 Chronic Unclassified (9 sources) Thank you for allowing me to participate in the care of your patient. Please don't hesitate to call if any issues arise. This note was generated using a voice recognition system and there may be incorrect words, spelling or punctuation that were not noted when reviewing the office note prior to saving. Urinary tract infections (4 sources) Urinary tract infectious disease; Translations: [Urinary tract infection, site not specified] 01-26-2025 Episodic Viral infection (1 source) Viral wart on finger; Translations: [Viral wart, unspecified] Episodic Past or Other Problems Problem Classification Problem Date Documented Da te Episodic/Chronic Acute and unspecified renal failure (20 sources) Injury of kidney; Translations: [Acute kidney failure, unspecified] Onset: 01-27-2025 Resolved: 01-29-2025 Episodic Calculus of urinary tract (20 sources) History of calculus of kidney; Translations: [Personal history of urinary calculi] Onset: 09-30-2014 09-30-2014 Episodic Complication of device; implant or graft (20 sources) Dialysis finding; Translations: [Other specified complication of vascular prosthetic devices, implants and grafts, initial encounter] Onset: 01-27-2025 Resolved: 01-29-2025 10-27-2020 Chronic Conditions associated with dizziness or vertigo (5 sources) Vertigo; Translations: [Dizziness and giddiness] Onset: 11-30-2024 11-19-2024 Episodic Fluid and electrolyte disorders (20 sources) Hypokalemia; Translations: [Hypokalemia] Onset: 01-28-2025 Resolved: 01-29-2025 Episodic Genitourinary symptoms and ill-defined conditions (20 sources) Lower urinary tract symptoms; Translations: [Unspecified symptoms and signs involving the genitourinary system] Onset: 09-30-2014 09-30-2014 Episodic Nausea and vomiting (20 sources) Nausea; Translations: [Nausea] Onset: 11-15-2017 11-15-2017 Episodic Other aftercare (1 source) penitentiary (current) use of insulin; Translations: [penitentiary (current) use of insulin] Onset: 07-28-2024 Episodic Other circulatory disease (7 sources) Personal history of other diseases of the circulatory system; Translations: [Personal history of other diseases of circulatory system] Onset: 04-30-2024 11-01-2022 Episodic Other connective tissue disease (20 sources) Weakness of right leg; Translations: [Other symptoms and signs involving the musculoskeletal system] Onset: 06-14-2018 06-14-2018 Episodic Other connective tissue disease (20 sources) Other symptoms and signs involving the musculoskeletal system; Translations: [Other musculoskeletal symptoms referable to limbs] Onset: 06-14-2018 06-14-2018 Episodic Other diseases of kidney and ureters (16 sources) Hydronephrosis; Translations: [Unspecified hydronephrosis] Onset: 01-27-2025 Resolved: 01-29-2025 01-29-2025 Episodic Other gastrointestinal disorders (20 sources) Diarrhea; Translations: [Diarrhea, unspecified] Onset: 04-01-2024 Episodic Other gastrointestinal disorders (2 sources) Diarrhea, unspecified; Translations: [Diarrhea, unspecified type] Onset: 04-01-2024 Episodic Other nervous system disorders (20 sources) Abnormal gait; Translations: [Unsteadiness on feet] Onset: 06-14-2018 06-14-2018 Episodic Other non-traumatic joint disorders (20 sources) Pain in right shoulder; Translations: [Pain in joint, shoulder region] Onset: 05-03-2017 Resolved: 04-02-2019 04-02-2019 Episodic Other nutritional; endocrine; and metabolic disorders (1 source) Overweight; Translations: [Overweight] Onset: 04-30-2024 Episodic Results Test Name Value Interpretation Reference Range Facility Abdomen/Pelvis without Conto n 03-10-2025 Abdomen/Pelvis without Cont [facility] Imaging Services [address] [place] [address] Abdomen/Pelvis without Cont MR#: [id number] Acct: [id number] Name: ITALO BURGOS Rep #: [id number] : 1970 M 54 From: John Solis MD PCP: Dr. Zaida Gaston MD Status: REG ER Study: Abdomen/Pelvis without Cont Date of Exam: 11/03 Exam# [id number] Ordering Dr: Byron Saldana DO EXAM: CT Abdomen and Pelvis Without Intravenous Contrast CLINICAL INDICATION: FLANK PAIN TECHNIQUE: Axial computed tomography images of the abdomen and pelvis without intravenous contrast. This CT exam was performed using one or more of the following dose reduction techniques: automated exposure control, adjustment of the mA and/or kV according to patient size, and/or use of iterative reconstruction technique. COMPARISON: CT Abdomen Pelvis dated 01/26/2025 FINDINGS: LUNG BASES: Unremarkable. No mass. No consolidation. MEDIASTINUM: Small esophageal hiatal hernia. ABDOMEN: LIVER: Hepatomegaly with fatty infiltration. GALLBLADDER AND BILE DUCTS: Gallbladder is surgically absent. No ductal dilation. PANCREAS: Unremarkable. No ductal dilation. SPLEEN: Unremarkable. No splenomegaly. ADRENALS: Unremarkable. No mass. KIDNEYS AND URETERS: Transplant kidney in the right lower abdominal quadrant with external nephrostomy tube. Mild hydronephrosis in the setting of an obstructive calculus in the mid ureter measuring up to 9 mm. STOMACH AND BOWEL: Fecal retention in the colon consistent with constipation. No obstruction. No mucosal thickening. PELVIS: APPENDIX: No findings to suggest acute appendicitis. BLADDER: Bladder wall thickening which may be due to the decompressed state of the bladder or due to cystitis. No stones. REPRODUCTIVE: Unremarkable as visualized. ABDOMEN and PELVIS: INTRAPERITONEAL SPACE: Unremarkable. No free air. No significant fluid collection. BONES/JOINTS: No acute fracture. No dislocation. SOFT TISSUES: Unremarkable. VASCULATURE: Unremarkable. No abdominal aortic aneurysm. LYMPH NODES: Unremarkable. No enlarged lymph nodes. CT/Abdomen/Pelvis without Cont IMPRESSION: 1. Transplant kidney in the right lower abdominal quadrant with external nephrostomy tube. Mild hydronephrosis in the setting of an obstructive calculus in the mid ureter measuring up to 9 mm. 2. Bladder wall thickening which may be due to the decompressed state of the bladder or due to cystitis. 3. Small esophageal hiatal hernia. 4. Hepatomegaly with fatty infiltration. 5. Fecal retention in the colon consistent with constipation. Reading Location: [facility] CC: Dr. Zaida Gaston MD; Dr. Byron Saldana DO Tutorial Laboratory Supervisor: Signed Normal [facility] Anion gap in Serum or Plasma Ordered By: Chuy Santiago on 03-10-2025 Anion gap [Moles/Vol] 11 mmol/L - [facility] BUN/creatinine ratioOrdered By: Chuy Santiago on 03-10-2025 Urea nitrogen/Creatinine [Mass ratio] 18.8 mg/mg - [facility] Basic Metabolic Profile (BMP )on 03-10-2025 BUN/CRE 18.8 RATIO Normal - [facility] Comment on above: Performed By: #### L 500.2500 ####[facility] [id number] [place], [address] Calcium [Mass/Vol] 9.3 mg/dL Normal 7.6-11.0 [facility] Comment on above: Performed By: #### L 500.2500 ####[facility] [id number] [place], [address] Chloride [Moles/Vol] 100 mmol/L Normal 98-108 [facility] Comment on above: Performed By: #### L 500.2500 ####[facility] [id number] [place], [address] CO2 [Moles/Vol] 23.9 mmol/L Normal 21.0-32.0 [facility] Comment on above: Performed By: #### L 500.2500 ####[facility] [address] [place], [address] Creatinine [Mass/Vol] 1.20 mg/dL Normal 0.70-1.20 [facility] Comment on above: Performed By: #### L 500.2500 ####[facility] [id number] [place], [address] ECRCL 66.50 ml/min Normal 50-250 [facility] Comment on above: Performed By: #### L 500.2500 ####[facility] [id number] [place], [address] GAP 11 Normal 5-15 [facility] Comment on above: Performed By: #### L 500.2500 ####[facility] [id number] [place], [address] GFR/1.73 sq M.predicted among non-blacks MDRD (S/P/Bld) [Vol rate/Area] 71 mL/min/{1.73_m2} Normal >60 [facility] Comment on above: Result Comment: mL/m in/1.73m2 CKD-EPI Creatinine Equation (2020) Performed By: #### L 500.2500 ####[facility] [id number] [place], [address] Glucose [Mass/Vol] 307 mg/dL High 70-99 [facility] Comment on above: Performed By: #### L 500.2500 ####[facility] [id number] [place], [address] Potassium [Moles/Vol] 4.2 mmol/L Normal 3.3-5.1 [facility] Comment on above: Result Comment: Hemo lysis present, Results??could be affected. ?? Performed By: #### L 500.2500 ####[facility] [address] [place], [address] Sodium [Moles/Vol] 134 mmol/L Normal 133-145 [facility] Comment on above: Performed By: #### L 500.2500 ####[facility] [address] [place], [address] Urea nitrogen [Mass/Vol] 23 mg/dL High 4-19 [facility] Comment on above: Performed By: #### L 500.2500 ####[facility] [address] [place], [address] Bilirubin Test strip Ql (U)O rdered By: Byron Saldana on 03-10-2025 Bilirubin Ql (U) Negative Negative [facility] Carbon dioxide, total [Moles /volume] in Central venous bloodOrdered By: Chuy Santiago on 03-10-2025 CO2 [Moles/Vol] 23.9 mmol/L 21.0-32.0 [facility] Chloride assayOrdered By: Daylin Santiago on 03-10-2025 Chloride [Moles/Vol] 100 mmol/L 98-108 [facility] Emergency Department Summary on 03-10-2025 Emergency Department Summary [facility] Medical Records Department [address] [place] [address] Emergency Department Summary 03/10/25 MR#: [id number] Acct: [id number] Name: ITALO BURGOS Rep #: [id number] : 1970 54 From: Byron Saldana DO PCP: Dr. Zaida Gaston MD Status:DEP ER Location: ED HPI History of Present Illness Chief Complaint: Wound Informant: patient Onset/Context/Timing Onset: Yesterday Context: Gradual Onset Timing: Continuous Quality: Aching Location: Right lower abdomen Worsened by: Movement Relieved by: Nothing Narrative Narrative: Patient presents with infection around his nephrostomy tube that began yesterday. Patient states is gradually getting worse. Patient states it is over the right lower abdomen. Patient describes it as aching. Patient states the pain is worse with certain movements. Patient states nothing makes it better. Patient denies any fevers or chills. Patient denies any change in his urine. Patient denies any neck or back pain. [facility] Medical History (Updated 03/10/25 @ 20:[address] Chuy Santiago MD) Anxiety Depression Diabetes Former smoker CPAP (continuous positive airway pressure) dependence Atrial fibrillation Myocardial infarct Congestive heart failure (CHF) Diabetic foot ulcer Gas gangrene of foot Necrotizing fasciitis Diabetic foot infection Type 2 diabetes mellitus with diabetic polyneuropathy 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 exposed Vision loss of left eye Respiratory failure Hypoxemia COVID-19 COVID-19 Type 2 diabetes mellitus with diabetic polyneuropathy Cellulitis of left lower limb Pulmonary edema Dyspnea Fistula ( 12/2018) History of left heart catheterization (LHC) ( 06/26/11) Atherosclerotic heart disease of [place] coronary artery without angina pectoris Essential hypertension Problem with dialysis access Chronic renal failure, stage 5 Vision problems Pneumonia Kidney stones Kidney failure Anasarca associated with disorder of kidney Autonomic neuropathy Hypoglycemia Acute hypoxemic respiratory failure Acute on chronic diastolic CHF (congestive heart failure) Retention, urine Obesity (BMI 30-39.9) Acute respiratory failure with hypoxia Hypokalemia Noncompliance Diabetic neuropathy Diabetic nephropathy Diabetic retinopathy ILDA (acute kidney injury) Hypertensive emergency Chewing tobacco nicotine dependence GERD (gastroesophageal reflux disease) Anxiety and depression Diabetes mellitus type II, uncontrolled Blind left eye HLD (hyperlipidemia) Right leg pain Chronic ulcer of 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 Cellulitis and abscess of right leg History of acute myocardial infarction Home Medications ???Medication ???Instructions ???Recorded ???Last Taken ???Type prednisone 5 mg tablet 5 mg PO DAILY steroid 09/18/2111/03 History fluoxetine 10 mg capsule 10 mg PO DAILY 03/24/24 03/09/25 H istory insulin lispro protamine-lispro See Rx Instructions subcut .tid 03/10/25 Rx 100 unit/mL (50-50) subcutaneous with meals #42 mL pen (Humalog Mix 50-50 KwikPen) mycophenolate sodium 180 mg 360 mg PO BID 01/26/25 03/10/25 Hi story tablet,delayed release sulfamethoxazole 400 1 tab PO MOWEFR 01/26/25 03/10/25 History mg-trimethoprim 80 mg tablet carvedilol 12.5 mg tablet 12.5 mg PO BID 03/10/25 03/10/25 H istory cephalexin 500 mg capsule 500 mg PO Q6 #28 CAPSULES 03/10/25 Unknown Rx escitalopram oxalate 10 mg tablet 10 mg PO DAILY 03/10/25 03/09/25 History sulfamethoxazole 800 1 tab PO BID #14 TABLETS 03/10/25 Unknown Rx mg-trimethoprim 160 mg tablet Allergy/AdvReac Type Severity Reaction Status Date / Time No Known Allergies Allergy Verified 03/10/25 11:27 Family History Mother Heart disease Hypertension Father Cancer Brother Cancer Diabetes Sister Diabetes Other Alcohol abuse Depression H/O transfusion of whole blood Kidney disease Surgical History (Updated 03/10/25 @ 20:[address] Chuy Santiago MD) Renal transplant recipient Kidney replaced by transplant History of artificial lens replacement History of arteriovenostomy for renal dialysis ( 08/2018) Status post insertion of dialysis catheter ( 08/2018) History of appendectomy History of eye surgery History of cholecystectomy Social History household members: spouse Smoking Status: Never smoker second hand exposure: No alcohol intake: never substance use type: does not use caffeine: No what type of physical activity do you participate in: none ROS ROS ED Constitutional Constitutional ED: Denies chills or fever(s) Eyes Eyes: Denies blurry vision or change in vision ENT ENT (more content not included)... Normal [facility] Glomerular filtration rate ( GFR) estimation/1.73 sq m using serum, plasma, or whole bOrdered By: Chuy Santiago on 03-10-2025 GFR/1.73 sq M.predicted among non-blacks MDRD (S/P/Bld) [Vol rate/Area] 71 mL/min/{1.73_m2} >60 [facility] Comment on above: mL/min/1.73m2 CKD-EP I Creatinine Equation (2020) Ketones Test strip Ql (U)Ord ered By: Byron Saldana on 03-10-2025 Ketones Ql (U) Negative Negative [facility] Microscopic analysis of urin e for red blood cells (RBC)Ordered By: Byron Saldana on 03-10-2025 Microscopic analysis of urine for red blood cells (RBC) 10-25 SEEN /hpf 0-5 [facility] Mucus LM Ql (Urine sed)Order ed By: Byron Saldana on 03-10-2025 Mucus Ql (Urine sed) 0 SEEN /hpf [facility] Nitrite Test strip Ql (U)Ord ered By: Byron Saldana on 03-10-2025 Nitrite Ql (U) Positive High Negative [facility] Potassium measurement (mass/ volume)Ordered By: Chuy Santiago on 03-10-2025 Potassium (Unsp spec) [Mass/Vol] 4.2 mmol/L 3.3-5.1 [facility] Comment on above: Hemolysis present, R esults could be affected. Protein Test strip Ql (U)Ord ered By: Byron Saldana on 03-10-2025 Protein Ql (U) 100 mg/dl High Negative [facility] Serum creatinine measurement (mass/volume)Ordered By: Chuy Santiago on 03-10-2025 Creatinine [Mass/Vol] 1.20 mg/dL 0.70-1.20 [facility] Serum glucose measurement (m ass/volume)Ordered By: Chuy Santiago on 03-10-2025 Glucose [Mass/Vol] 307 mg/dL High 70-99 [facility] Serum or plasma calcium regi urement (mass/volume)Ordered By: Chuycholo Santiago on 03-10-2025 Calcium [Mass/Vol] 9.3 mg/dL 7.6-11.0 [facility] Serum or plasma urea nitroge n measurement (mass/volume)Ordered By: Chuy Santiago on 03-10-2025 Urea nitrogen [Mass/Vol] 23 mg/dL High 4-19 [facility] Sodium levelOrdered By: Chuycholo Santiago on 03-10-2025 Sodium [Moles/Vol] 134 mmol/L 133-145 [facility] Squamous epithelial cells de tection in urine sediment by light microscopyOrdered By: Byron Saldana on 03-10-2025 Epithelial cells.squamous LM Ql (Urine sed) 0-5 SEEN /hpf 0-5 [facility] Urinalysis, Completeon 03-10 BACTERIA 2+ /hpf Normal None Seen [facility] Comment on above: Order Comment: ALAINA TER SPECIMEN Performed By: #### L 500.2500, L100.0100 #### [facility] [address] [place], [place], [id number] EPI,SQUAMOUS 0-5 SEEN Normal 0-5 [facility] Comment on above: Order Comment: ALAINA TER SPECIMEN Performed By: #### L 500.2500, L100.0100 #### [facility] [address] [place], [address] RBC 10-25 SEEN Normal 0-5 [facility] Comment on above: Order Comment: ALAINA TER SPECIMEN Performed By: #### L 500.2500, L100.0100 #### [facility] [address] [place], [address] WBC 50-100 SEEN Normal 0-5 [facility] Comment on above: Order Comment: ALAINA TER SPECIMEN Performed By: #### L 500.2500, L100.0100 #### [facility] [address] [place], [address] Mucus Ql (Urine sed) 0 SEEN Normal [facility] Comment on above: Order Comment: ALAINA TER SPECIMEN Performed By: #### L 500.2500, L100.0100 #### [facility] [address] [place], [address] Urine clarityOrdered By: Marline Saldana on 03-10-2025 Clarity (U) Cloudy Clear [facility] Urine color determinationOrd ered By: Byron Saldana on 03-10-2025 Color (U) Yellow Yellow [facility] Urine glucose detectionOrder ed By: Byron Sladana on 03-10-2025 Glucose Ql (U) 1000 mg/dl High Normal [facility] Urine leukocyte esterase det ection by dipstickOrdered By: Byron Saldana on 03-10-2025 Leukocyte esterase Test strip Ql (U) 500 /ul High Negative [facility] Urine pHOrdered By: Byron means on 03-10-2025 pH (U) 6.0 [pH] 5.0 - 8.0 [facility] Urine sediment bacteria coun t by microscopy (number/high power field)Ordered By: Byron Saldana on 03-10-2025 Bacteria LM.HPF (Urine sed) [#/Area] 2 /[HPF] None Seen [facility] Urine specific gravity measu rementOrdered By: Byron Saldana on 03-10-2025 Specific gravity (U) [Rel density] 1.015 1.002-1.030 [facility] Urine urobilinogen measureme ntOrdered By: Byron Saldana on 03-10-2025 Urobilinogen Ql (U) Normal mg/dl Normal [facility] White blood cell countOrdere d By: Byron Saldana on 03-10-2025 White blood cell count 50-100 SEEN /hpf 0-5 [facility] 03-08-2025 CNPN Telephone (PHMEWO) ITALO BURGOS ([id number]) 1970 M Date Time Provider Department 03/08/25 VERNA JENSEN PHMEWO During your visit today, we recorded the following information about you: Verna Jensen [facility] 03/08/2025 3:11 PM Signed PharmD called park activities coordinator Dr. Steve Durand's office ([phone]) to confirm dx of T1 vs T2 and to also confirm Trulicity dose and any past DM medications. LMOM for nurse for someone to call me back. Can see office note from 03/08 for more detail. Verna Jensen PharmD, [facility] Primary Care Clinical Pharmacist Verna Jensen [facility] 03/08/2025 3:57 PM Signed Had a return call from nurse, Xiang. She reported the following: - Pt last seen by Dr. Durand in July 2024 - A1c was 8.5% - F/up visit was scheduled for 12/03/24 and he no-showed. Outreach letter was sent. Currently listed as no follow-up. - Did confirm he was on Trulicity 4.5mg, had 90 DS and 1 refill. - Only other med at that time was Humalog 50/50 mix: 40 units with breakfast and lunch and 60 units with supper. - Hx of taking metformin and Invokana, [id number], was discontinued but uncertain why. - Previously was on basal/bolus insulin, switched because of hypoglycemia - Endo diagnosis is T2DM per charts though nurse couldn't find labs confirming this. Endo does not have any documentation of him being T1DM (first seen in 2018) Will send as FYI to PCP and also suggest getting Dm dx labs ordered. Verna Jensen PharmD, [facility] Primary Care Clinical Pharmacist Allergies As of Date: 03/08/2025 (No Known Allergies) Date Reviewed: 02/25/2025 Reviewed by: Jannie Melvin RN - Fully Assessed Reason for Visit: Diabetes [34] Prescriptions as of 03/08/2025 - insulin 50/50 lispro protamine-lispro units/mL (HUMALOG MIX 50-50 KWIKPEN) 100 unit/mL (50-50) pen Inject 46 Units subcutaneously daily with breakfast AND 40 Units daily with lunch AND 50 Units daily with dinner. - mycophenolate sodium DR (MYFORTIC) 180 mg EC tablet TAKE TWO TABLETS BY MOUTH 2 TIMES A DAY - escitalopram oxalate (LEXAPRO) 10 mg tablet Take 1 tablet by mouth once daily. - tacrolimus IR (PROGRAF) 1 mg capsule Take 1 capsule by mouth two times a day. Take one capsule at 6am and one capsule at 6pm Patient should start on January 30, 2025. - carvedilol (COREG) 12.5 mg tablet Take 1 tablet by mouth two times a day. - Cholestyramine, Bulk, powd Take one(1) scoop dissolved in two(2) to six(6) ounces(oz) of fluid by mouth daily. - sulfamethoxazole-trimet hoprim (BACTRIM) 400-80 mg per tablet Take 1 tablet by mouth every Saturday, Saturday, and Saturday. - pantoprazole DR (PROTONIX) 20 mg tablet Take 1 tablet by mouth once daily. - predniSONE (DELTASONE) 5 mg tablet Take 1 tablet by mouth once daily. - buPROPion XL (WELLBUTRIN XL) 300 mg 24 hr tablet Take 1 tablet by mouth once daily. - buPROPion (WELLBUTRIN) 75 mg tablet Take 1 tablet by mouth once daily. - FLUoxetine (PROZAC) 10 mg capsule Take 1 capsule by mouth once daily. - gabapentin (NEURONTIN) 100 mg capsule Take 1 capsule by mouth daily at bedtime for 180 days. - loperamide (IMODIUM) 2 mg cap(s) Take 1 capsule by mouth four times a day as needed. - pseudoephedrine (SUDAFED) 30 mg tablet Take Four 4 (30 mg) Tablets for an erection lasting more than 2 hours. If not improved in 1 hour MUST go to ER - ergocalciferol 50,000 unit capsule (VITAMIN D2, DRISDOL) Take 1 capsule by mouth one time a week. - glucagon 3 mg/actuation nasal spray (BAQSIMI) Use 1 [place] in the nose as needed for low blood sugar. May repeat after 15 minutes using a new device if there is no response. - aspirin 81 mg chewable tablet chew and swallow 1 tablet by mouth once daily. - fluticasone (FLONASE) 50 mcg/actuation nasal spray Use 2 Sprays in each nostril once daily. Problem List As Of Date 03/08/2025 Noted Resolved Uncontrolled type 2 diabetes mellitus with comp*04/17/2006 Hypertension goal BP (blood pressure) < 140/90 *04/17/2006 Other hyperlipidemia [E78.49] 04/17/2006 Depressive disorder, not elsewhere classified [*04/17/2006 04/02/2019 ED (erectile dysfunction) [N52.9] 09/30/2014 Lower urinary tract symptoms (LUTS) [R39.9] 09/30/2014 History of kidney stones [Z87.442] 09/30/2014 Microscopic hematuria [R31.29] 09/30/2014 Diabetic polyneuropathy associated with type 2 *05/03/2017 Acute pain of right shoulder [M25.511] 05/03/2017 04/02/2019 Nausea [R11.0] 11/15/2017 Vomiting [R11.10] 11/15/2017 Moderate episode of recurrent major depressive *11/26/2017 Stage 3a chronic kidney disease (HCC) [N18.31] 11/26/2017 Right leg weakness [R29.898] 06/14/2018 Gait instability [R26.81] 06/14/2018 CKD (chronic kidney disease) requiring chronic *12/16/2018 11/23/2022 Kidney transplant recipient [Z94.0] 03/09/2021 Type 1 diabetes mellitus on insulin therapy (HC*03/23/2021 Immunodeficiency due to (more content not included)... Normal [facility] BRIEF OP NOTon 02-25-2025 BRIEF OP NOT HNO ID: [id number] Author: JONNY SOFIA MD Service: Radiology Author Type: Resident Type: Brief Op Note Filed: 02/25/2025 11:41 Note Text: Attestation signed by Dona Martinez MD at 02/27/2025 4:56 PM Attending Note I evaluated the patient and personally participated in the de anda components. I agree with the resident's findings and plan as documented and have discussed the case and management of the patient's care with the resident. Signature: Dona Martinez MD Date: 02/27/2025 Time: 4:56 PM BRIEF OPERATIVE / PROCEDURE NOTE LOG ID: [id number] SURGERY/PROCEDURE DATE: 02/25/2025 INCISION/PROCEDURE START TIME: 10:05 AM INCISION CLOSE/PROCEDURE END TIME: 10:26 AM SURGEON(S)/PROCEDURALIS T(S) AND FIGURE CLERK(S): Surgeons and Role: * Dona Martinez MD - Primary * Jonny Sofia MD - Assisting No Additional Staff SURGERY/PROCEDURE(S): perc. Neph tube exchange 10F ANESTHESIA: Procedural Sedation FINDINGS: successful exchange ESTIMATED BLOOD LOSS: 0 ml SPECIMENS: None COMPLICATIONS: None IMPLANTS: 10Fr [place] [employer] CLOSURE TECHNIQUE: Non-primary PRE-OP/PRE-PROCEDURE DIAGNOSIS: 54M s/p renal transplant 2020 c/b obstructing ureteral stone with hydronephrosis s/p perc neph on 01/27 POST-OP/POST-PROCEDURE DIAGNOSIS: Same as Preop SIGNATURE: Jonny Sofia MD PATIENT NAME: Italo Burgos DATE: February 25, 2025 TIME: 10:31 AM Normal [facility] 02-25-2025 CNPN Telephone (Angio) BURGOSITALO JENKINS ([id number]) 1970 M Date Time Provider Department 02/25/25 XIANG DEUTSCH During your visit today, we recorded the following information about you: Xiang Deutsch RN 02/25/2025 10:33 AM Addendum Tube Exchange Appointment Request Form Person filling out this form: Xiang Deutsch RN Date: February 25, 2025 Time: 9:56 AM Patient Name: Italo Burgos Patient What type of tube is this? Nephrostomy or nephroureteral (tube in the back) Does this tube need exchanged? Yes, How many weeks? 10 to 12 weeks Per physician direction, does this need to be physician specific? No Does this patient require SANDEEP? No Per physician, can this exchange be done in the region? [place] If the patient has an already existing exchange appointment can that one be cancelled? Yes Any other pertinent information needed for schedulers?transplant kidney Elizabeth Sweet 02/25/2025 3:50 PM Signed Pt is due 05/06. Need qgenda schedule. Allergies As of Date: 02/25/2025 (No Known Allergies) Date Reviewed: 02/25/2025 Reviewed by: Jannie Melvin, ANDER - Fully Assessed Reason for Visit: IR Outpatient Tube Appointment Request [[id number]] Prescriptions as of 02/25/2025 - mycophenolate sodium DR (MYFORTIC) 180 mg EC tablet TAKE TWO TABLETS BY MOUTH 2 TIMES A DAY - escitalopram oxalate (LEXAPRO) 10 mg tablet Take 1 tablet by mouth once daily. - tacrolimus IR (PROGRAF) 1 mg capsule Take 1 capsule by mouth two times a day. Take one capsule at 6am and one capsule at 6pm Patient should start on January 30, 2025. - carvedilol (COREG) 12.5 mg tablet Take 1 tablet by mouth two times a day. - Cholestyramine, Bulk, powd Take one(1) scoop dissolved in two(2) to six(6) ounces(oz) of fluid by mouth daily. - sulfamethoxazole-trimet hoprim (BACTRIM) 400-80 mg per tablet Take 1 tablet by mouth every Saturday, Saturday, and Saturday. - pantoprazole DR (PROTONIX) 20 mg tablet Take 1 tablet by mouth once daily. - predniSONE (DELTASONE) 5 mg tablet Take 1 tablet by mouth once daily. - buPROPion XL (WELLBUTRIN XL) 300 mg 24 hr tablet Take 1 tablet by mouth once daily. - buPROPion (WELLBUTRIN) 75 mg tablet Take 1 tablet by mouth once daily. - FLUoxetine (PROZAC) 10 mg capsule Take 1 capsule by mouth once daily. - gabapentin (NEURONTIN) 100 mg capsule Take 1 capsule by mouth daily at bedtime for 180 days. - loperamide (IMODIUM) 2 mg cap(s) Take 1 capsule by mouth four times a day as needed. - pseudoephedrine (SUDAFED) 30 mg tablet Take Four 4 (30 mg) Tablets for an erection lasting more than 2 hours. If not improved in 1 hour MUST go to ER - ergocalciferol 50,000 unit capsule (VITAMIN D2, DRISDOL) Take 1 capsule by mouth one time a week. - insulin 50/50 lispro protamine-lispro units/mL (HUMALOG MIX 50-50 KWIKPEN) 100 unit/mL (50-50) pen Inject 30 Units subcutaneously daily at bedtime. - glucagon 3 mg/actuation nasal spray (BAQSIMI) Use 1 [place] in the nose as needed for low blood sugar. May repeat after 15 minutes using a new device if there is no response. - aspirin 81 mg chewable tablet chew and swallow 1 tablet by mouth once daily. - fluticasone (FLONASE) 50 mcg/actuation nasal spray Use 2 Sprays in each nostril once daily. Problem List As Of Date 02/25/2025 Noted Resolved Uncontrolled type 2 diabetes mellitus with comp*04/17/2006 Hypertension goal BP (blood pressure) < 140/90 *04/17/2006 Other hyperlipidemia [E78.49] 04/17/2006 Depressive disorder, not elsewhere classified [*04/17/2006 04/02/2019 ED (erectile dysfunction) [N52.9] 09/30/2014 Lower urinary tract symptoms (LUTS) [R39.9] 09/30/2014 History of kidney stones [Z87.442] 09/30/2014 Microscopic hematuria [R31.29] 09/30/2014 Diabetic polyneuropathy associated with type 2 *05/03/2017 Acute pain of right shoulder [M25.511] 05/03/2017 04/02/2019 Nausea [R11.0] 11/15/2017 Vomiting [R11.10] 11/15/2017 Moderate episode of recurrent major depressive *11/26/2017 Stage 3a chronic kidney disease (HCC) [N18.31] 11/26/2017 Right leg weakness [R29.898] 06/14/2018 Gait instability [R26.81] 06/14/2018 CKD (chronic kidney disease) requiring chronic *12/16/2018 11/23/2022 Kidney transplant recipient [Z94.0] 03/09/2021 Type 1 diabetes mellitus on insulin therapy (HC*03/23/2021 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 Normal [facility] HISTORY PHYSICALon HISTORY PHYSICAL HNO ID: [id number] Author: JONNY SOFIA MD Service: Radiology Author Type: Resident Type: H&P Filed: 02/25/2025 09:25 Note Text: Attestation signed by Dona Martinez MD at 02/25/2025 9:38 AM Attending Note I evaluated the patient and personally participated in the de anda components. I agree with the resident's findings and plan as documented and have discussed the case and management of the patient's care with the resident. Signature: Dona Martinez MD Date: 02/25/2025 Time: 9:38 AM RADIOLOGY PROCEDURAL SEDATION HISTORY AND PHYSICAL EXAM SERVICE DATE: 02/25/2025 SERVICE TIME: 9:22 AM Subjective HPI: This is a 54 year old male who presents with s/p renal transplant 2020 c/b obstructing ureteral stone with hydronephrosis s/p perc neph on 01/27; 10F [employer] routine exchange PROCEDURE SCHEDULED: Procedure(s) with comments: PERC EXCHANGE NEPHROSTOMY CATH, INCLUDING DIAGNOSTIC NEPHROSTOGRAM/URETEROGR AM WHEN PERFORMED,IMAGING GUIDANCE AND ALL ASSOCIATED RAD PETER (N/A) - NEPH TUBE CHANGE 4 WKS FROM 01/27 PER R/F RADIOLOGY ORDER PLACED: PAST ANESTHESIA HISTORY: No history of adverse event PAST MEDICAL HISTORY Diagnosis Date Acute diastolic (congestive) heart failure ([facility]) Bronchitis Chronic kidney failure, stage 4 (severe) ([facility]) 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 ([facility]) 12/16/2018 Depression Detached retina DM type 2, goal HbA1c < 7% ([facility]) Erectile dysfunction, unspecified erectile dysfunction type ESRD (end stage renal disease) ([facility]) GERD (gastroesophageal reflux disease) Hyperlipidemia Kidney replaced by transplant ([facility]) Kidney stones LUANNE (obstructive sleep apnea) PNA (pneumonia) Proliferative retinopathy 02/10/2019 PTE (post-transplant erythrocytosis) Snoring Unspecified essential hypertension Vitamin D deficiency Vitamin D deficiency PAST SURGICAL HISTORY Procedure Laterality Date AMPUTATION TOE,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 08/08/2018 Done at [facility] by Satish Phan MD CHOLECYSTECTOMY 1998 Cholecystectomy COLONOSCOPY 12/04/2018 COLONOSCOPY SCREENING 04/01/2024 CYSTO W/COMPLEX REMOVAL STONE AND STENT 1999 EGD 12/04/2018 EGD W/O [facility] SPEC VARICIES INJ 04/01/2024 PAST SURGICAL HISTORY OF Left 2012 AND 2014 removal eye fluid with instillation oil Prior to Admission medications as of 02/25/25 0858 Medication Sig Last Dose Taking mycophenolate sodium DR (MYFORTIC) 180 mg EC tablet TAKE TWO TABLETS BY MOUTH 2 TIMES A DAY 02/24/2025 Yes escitalopram oxalate (LEXAPRO) 10 mg tablet Take 1 tablet by mouth once daily. 02/24/2025 Yes tacrolimus IR (PROGRAF) 1 mg capsule Take 1 capsule by mouth two times a day. Take one capsule at 6am and one capsule at 6pm Patient should start on January 30, 2025. 02/24/2025 Yes carvedilol (COREG) 12.5 mg tablet Take 1 tablet by mouth two times a day. 02/24/2025 Yes sulfamethoxazole-trimet hoprim (BACTRIM) 400-80 mg per tablet Take 1 tablet by mouth every Saturday, Saturday, and Saturday. 02/24/[address] (PROTONIX) 20 mg tablet Take 1 tablet by mouth once daily. 02/24/2025 Yes buPROPion XL (WELLBUTRIN XL) 300 mg 24 hr tablet Take 1 tablet by mouth once daily. 02/24/2025 Yes buPROPion (WELLBUTRIN) 75 mg tablet Take 1 tablet by mouth once daily. 02/24/2025 Yes FLUoxetine (PROZAC) 10 mg capsule Take 1 capsule by mouth once daily. 02/24/2025 Yes pseudoephedrine (SUDAFED) 30 mg tablet Take Four 4 (30 mg) Tablets for an erection lasting more than 2 hours. If not improved in 1 hour MUST go to ER 02/24/2025 Yes insulin 50/50 lispro protamine-lispro units/mL (HUMALOG MIX 50-50 KWIKPEN) 100 unit/mL (50-50) pen Inject 30 Units subcutaneously daily at bedtime. 02/24/2025 Yes Cholestyramine, Bulk, powd Take one(1) scoop dissolved in two(2) to six(6) ounces(oz) of fluid by mouth daily. 02/23/2025 predniSONE (DELTASONE) 5 mg tablet Take 1 tablet by mouth once daily. 02/23/2025 gabapentin (NEURONTIN) 100 mg capsule Take 1 capsule by mouth daily at bedtime for 180 days. loperamide (IMODIUM) 2 mg cap(s) Take 1 capsule by mouth four times a day as needed. Unknown ergocalciferol 50,000 unit capsule (VITAMIN D2, DRISDOL) Take 1 capsule by mouth one time a week. 02/11/2025 glucagon 3 mg/actuation nasal spray (BAQSIMI) Use 1 [place] in the nose as needed for low blood sugar. May repeat after 15 minutes using a new device if there is no response. 01/21/2025 aspirin 81 mg chewable tablet chew and swallow 1 tablet by mouth once daily. 02/23/2025 fluticasone (FLONASE) 50 mcg/actuation nasal spray Use 2 Sprays in each nostril once daily. ALLERGIES No Known Allergies Objective PHYSICAL EXAM: The remainder of the physical exam is noncontributory. AIRWAY: LUNGS: Lungs clear to auscultation, Good d (more content not included)... Normal [facility] IR EXCHANGE CATH PERC NEPHon 02-25-2025 IR EXCHANGE CATH PERC NEPH * * *Final Report* * * DATE OF EXAM: Feb 25 2025 10:26AM [facility] 0777 - IR EXCHANGE CATH PERC NEPH / PROCEDURE REASON: Hydronephrosis, unspecified hydronephrosis type * * * * Physician Interpretation * * * * PROCEDURE: GENITOURINARY CATHETER EXCHANGE Procedural Personnel Attending physician(s): Dona Martinez MD Fellow physician(s): None Resident physician(s): Jonny Sofia MD Advanced practice provider(s): None Medical Student(s): None Pre-procedure diagnosis: 54M s/p renal transplant 2020 c/b obstructing ureteral stone with hydronephrosis s/p perc neph on 01/27 Post-procedure diagnosis: Same Indication: Ureteral obstruction Additional clinical history: 54-year-old male with history of transplant kidney obstruction. I discussed with transplant surgery and the plan was to only exchange the catheter today. PROCEDURE SUMMARY - Target organ: Transplant kidney - Antegrade nephrostogram(s) via the existing access - Nephrostomy tube exchange - Additional procedure(s): None PROCEDURE DETAILS: Pre-procedure Consent: Risks, benefits, treatment options, potential complications and personnel to be involved were discussed (including the risks of radiation exposure, contrast and anesthesia administration, and any equipment needed for the procedure to ensure best possible outcome) with the patient and all questions were answered and consent was obtained prior to procedure. Premedicated for contrast allergy: n/a Transfusion of blood products: No Medication reconciliation: The patient's medications and allergies were reviewed in the electronic medical record and reconciled to the proposed procedure/treatment. [place]-procedure discussion: The appropriate elements of the pre-procedure discussion, safety check list and sign-out were performed. Time out: A time out was performed immediately prior to procedure start with the nursing and interventional team, correctly identifying the name, date of , procedure, anatomy (including marking of site and side if applicable), patient position, procedure consent form, relevant diagnostic and radiology test results, antibiotic administration if applicable, safety precautions, and procedure-specific equipment needs. Start of procedure: 1004 End of procedure: 1026 Patient position: Supine Preparation: The site was prepared and draped using all elements of maximal sterile barrier technique including sterile gloves, sterile gown, cap, mask, large sterile sheet, hand hygiene and cutaneous antisepsis. Antibiotics: Ceftriaxone Antibiotic infusion start time: 951 Prophylactic antibiotic administered: Within 1 hour of procedure start time or 2 hours for vancomycin or fluoroquinolones Additional med: None Additional med: None Contrast Contrast agent: OMNIPAQUE 300 Contrast volume (mL): 8 Image Guidance: Fluoroscopic guidance. Radiation Dose FLUOROSCOPIC RADIATION SUMMARY: Plane A, Air Kerma: 19.0 mGy Dose Area Product (DAP): 2.5 uGym2 Fluoro Time: 2:25 min:sec Radiation dose exceed 5 Gy: No If radiation dose exceeded 5 Gy, was counseling and instructional brochure provided: N/A Anesthesia/sedation Level of anesthesia/sedation: No sedation Anesthesia/sedation administered by: Independent trained observer under attending supervision with continuous monitoring of the patient?s level of consciousness and physiologic status Total intra-service sedation time (minutes): 0 Local anesthesia: 2 % lidocaine Transplant genitourinary catheter exchange Local anesthesia was administered. Initial nephrostogram was performed. A wire was placed through the existing tube and it was removed. The new tube was advanced over the wire and position was confirmed with contrast injection. Pre-existing genitourinary catheter: 10 F [employer] nephrostomy Genitourinary catheter(s) placed: 10 F [employer] nephrostomy Findings: Distal ureteral obstruction present likely due to nephrolithiasis. There was a small amount of contrast passing through into the bladder. External catheter securement: Non-absorbable suture Additional Details Additional description of procedure: None Equipment details: None Estimated blood loss (mL): Less than 10 Number and Type of Removed Specimens: 0: N/A Standardized report: [email or web address]_ v3 Complications There were no immediate complications and no other complications. Conclusion The patient was comfortable and was transferred to the recovery room in stable condition. The procedure was performed by the: the communication assistant, and the attending radiologist personally supervised the entire procedure. The attending radiologist performed the following procedural activities: Close supervision and assistance of the procedure IMPRESSION: Successful exchange of a 10French nephrostomy tube in the right (more content not included)... Normal [facility] NURSING PROGon 02-25-2025 NURSING PROG HNO ID: [id number] Author: SONNY MANDUJANO RN Service: Interventional Radiology Author Type: Registered Nurse Type: Nursing Progress Note Filed: 02/26/2025 08:09 Note Text: Attempted post procedure phone call. Left VM for patient to return call to [phone] with any questions/concerns. Normal [facility] NURSING PROG HNO ID: [id number] Author: KAYCEE FLETCHER RN Service: Nursing Author Type: Registered Nurse Type: Nursing Progress Note Filed: 02/25/2025 09:15 Note Text: Pt BG 409, on recheck BG 445. Dr. Ry corado, pt is asymptomatic. 0910- Dr. Sofia bedside to assess pt. Normal [facility] NURSING PROG HNO ID: [id number] Author: KAYCEE FLETCHER, RN Service: Nursing Author Type: Registered Nurse Type: Nursing Progress Note Filed: 02/25/2025 08:39 Note Text: Pt took a cab here without a family member for his neph tube exchange. Pt is agreeable to local anesthetic only- spoke with Dr. Martinez who states ok for patient to have procedure and go home with cab if local anesthetic only. Normal [facility] NURSING PROGon 02-18-2025 NURSING PROG HNO ID: [id number] Author: KAYCEE FLETCHER RN Service: Nursing Author Type: Registered Nurse Type: Nursing Progress Note Filed: 02/23/2025 08:14 Note Text: Confirmed instructions on 02/23 with Italo Please call [phone] to confirm you have received the below instructions for your upcoming radiology procedure. Italo Burgos is scheduled for the following procedure Nephrostomy tube exchange . Scheduled on 02/25/25, at [facility]. If instructions are not followed your procedure may need to be cancelled or rescheduled. Arrival: Arrival at 8:00 AM to desk QB-1 ([facility] [place]Note 2]) and check in for your procedure. Please bring your Photo ID and Insurance Card. A general consent may need to be signed. Director Account Management parking is located in front of the main entrance ([facility]) at [address], [place]. Garage parking is located across the street from the main entrance at [address] [place] [address]. From the main entrance, go straight until you see a sign directing you to the Q elevators. Take a LEFT. Go all the way down until you see a wall of windows, then take a RIGHT. The Q elevators will be straight ahead. Take the elevators to the basement. Desk Qb-1 will be to the left off the elevators. Diet: Do not eat solid food after midnight the night before your procedure. You may have only water until your arrival time. Stop tube feeding at midnight the night before your procedure. Medications: Please call to confirm medication instructions RADIOLOGY RECOMMENDS THESE MEDICATION RESTRICTIONS : Hold short acting insulin the day of procedure. Long acting insulin, take ? dose. If on mixed insulin - if BG> than 200 should take half the dose. If BG less < 200- don't take. Contrast Dye Prep: Do you have a contrast dye allergy? No Labs: Labs completed on 01/29/25. Gamemaster/Transportation: You will need a frontload driver for your procedure. You will need a responsible adult to accompany you to and from the procedure. If you develop any of the following symptoms before your procedure, please call [phone]. Chills, joint pain, rash, sore throat, cough, loss of smell, reddened eyes, vomiting, abdominal pains, diarrhea, loss of taste, severe headache, weakness, bruising or bleeding, fever, muscle pain, shortness of breath Recovery expectations: You can expect to be at the hospital for the majority of the day. Please do not schedule any other appointments the day of your procedure. If you have any questions please call [phone] Normal [facility] 02-15-2025 [facility] Telephone (PHMEWO) ITALO BURGOS ([id number]) 1970 M Date Time Provider Department 02/15/25 VERNA JENSEN During your visit today, we recorded the following information about you: Verna Jensen RPh 02/15/2025 9:52 AM Signed Called patient for scheduled phone appt but unable to reach after multiple attempts. LMOM for mobile phone. Unable to connect to home phone - maybe disconnected? Primary Care Pharmacy Rescheduling Outreach Call center, please contact patient and reschedule telephone visit for Diabetes management within ~4 week(s). (Visit length: 60 minutes) Thank you, Verna Jensen RPh 02/15/2025 9:51 AM Kavitha VALLESLg 02/17/2025 9:26 AM Signed 2nd attempt to reschedule appt. Called and lmom. Sent Central Log[employer] message. Verna Jensen [facility] 02/22/2025 8:43 AM Signed Called and spoke with patient. Rescheduled appt for 03/08. Verna Jensen, PharmD, BCPS Primary Care Clinical Pharmacist Allergies As of Date: 02/15/2025 (No Known Allergies) Date Reviewed: 02/05/2025 Reviewed by: Francheska Carrington MA - Fully Assessed Reason for Visit: Missed Appointment [1304] Cmt: Primary care reschedule Prescriptions as of 02/22/2025 - mycophenolate sodium DR (MYFORTIC) 180 mg EC tablet TAKE TWO TABLETS BY MOUTH 2 TIMES A DAY - escitalopram oxalate (LEXAPRO) 10 mg tablet Take 1 tablet by mouth once daily. - tacrolimus IR (PROGRAF) 1 mg capsule Take 1 capsule by mouth two times a day. Take one capsule at 6am and one capsule at 6pm Patient should start on January 30, 2025. - carvedilol (COREG) 12.5 mg tablet Take 1 tablet by mouth two times a day. - Cholestyramine, Bulk, powd Take one(1) scoop dissolved in two(2) to six(6) ounces(oz) of fluid by mouth daily. - sulfamethoxazole-trimet hoprim (BACTRIM) 400-80 mg per tablet Take 1 tablet by mouth every Saturday, Saturday, and Saturday. - pantoprazole DR (PROTONIX) 20 mg tablet Take 1 tablet by mouth once daily. - predniSONE (DELTASONE) 5 mg tablet Take 1 tablet by mouth once daily. - buPROPion XL (WELLBUTRIN XL) 300 mg 24 hr tablet Take 1 tablet by mouth once daily. - buPROPion (WELLBUTRIN) 75 mg tablet Take 1 tablet by mouth once daily. - FLUoxetine (PROZAC) 10 mg capsule Take 1 capsule by mouth once daily. - gabapentin (NEURONTIN) 100 mg capsule Take 1 capsule by mouth daily at bedtime for 180 days. - loperamide (IMODIUM) 2 mg cap(s) Take 1 capsule by mouth four times a day as needed. - pseudoephedrine (SUDAFED) 30 mg tablet Take Four 4 (30 mg) Tablets for an erection lasting more than 2 hours. If not improved in 1 hour MUST go to ER - ergocalciferol 50,000 unit capsule (VITAMIN D2, DRISDOL) Take 1 capsule by mouth one time a week. - insulin 50/50 lispro protamine-lispro units/mL (HUMALOG MIX 50-50 KWIKPEN) 100 unit/mL (50-50) pen Inject 30 Units subcutaneously daily at bedtime. - glucagon 3 mg/actuation nasal spray (BAQSIMI) Use 1 [place] in the nose as needed for low blood sugar. May repeat after 15 minutes using a new device if there is no response. - aspirin 81 mg chewable tablet chew and swallow 1 tablet by mouth once daily. - fluticasone (FLONASE) 50 mcg/actuation nasal spray Use 2 Sprays in each nostril once daily. Problem List As Of Date 02/15/2025 Noted Resolved Uncontrolled type 2 diabetes mellitus with comp*04/17/2006 Hypertension goal BP (blood pressure) < 140/90 *04/17/2006 Other hyperlipidemia [E78.49] 04/17/2006 Depressive disorder, not elsewhere classified [*04/17/2006 04/02/2019 ED (erectile dysfunction) [N52.9] 09/30/2014 Lower urinary tract symptoms (LUTS) [R39.9] 09/30/2014 History of kidney stones [Z87.442] 09/30/2014 Microscopic hematuria [R31.29] 09/30/2014 Diabetic polyneuropathy associated with type 2 *05/03/2017 Acute pain of right shoulder [M25.511] 05/03/2017 04/02/2019 Nausea [R11.0] 11/15/2017 Vomiting [R11.10] 11/15/2017 Moderate episode of recurrent major depressive *11/26/2017 Stage 3a chronic kidney disease (HCC) [N18.31] 11/26/2017 Right leg weakness [R29.898] 06/14/2018 Gait instability [R26.81] 06/14/2018 CKD (chronic kidney disease) requiring chronic *12/16/2018 11/23/2022 Kidney transplant recipient [Z94.0] 03/09/2021 Type 1 diabetes mellitus on insulin therapy (HC*03/23/2021 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/2024 Diarrhea [R19.7] 04/01/2024 ILDA (acute kidney injury) [N17.9] 01/27/2025 01/29/2025 Complication of transplanted kidney (HCC) [T86.*01/27/2025 01/29/2025 Encounter for monitoring tacrolimus therapy [Z5*01/27/2025 Hydronephrosis [N13.30] 01/27/2025 01/29/2025 Immunosuppressive management encounter followin*01/27/2025 Nephrolithiasis [N20.0] 01/27/2025 Hyponatremia [E87.1] 01/28/2025 01/29/2025 Metabolic acidosis [E87.20] 01/28/2025 01/29/2025 Encounter Status:Closed by VERNA JENSEN on 02/15/25 [facility] CNOVon 02-11-2025 CNOV Office Visit (TXCTGL ) ITALO BURGOS ([id number]) 1970 M Date Time Provider Department 02/11/25 10:00 AM [facility] TXCTGL During your visit today, we recorded the following information about you: Referring Provider: ALANA KENT [[id number]] Allergies As of Date: 02/11/2025 (No Known Allergies) Date Reviewed: 02/05/2025 Reviewed by: Francheska Carrington MA - Fully Assessed Primary Visit Diagnosis:Kidney replaced by transplant ([facility]) [Z94.0] Prescriptions as of 02/12/2025 - mycophenolate sodium DR (MYFORTIC) 180 mg EC tablet TAKE TWO TABLETS BY MOUTH 2 TIMES A DAY - escitalopram oxalate (LEXAPRO) 10 mg tablet Take 1 tablet by mouth once daily. - tacrolimus IR (PROGRAF) 1 mg capsule Take 1 capsule by mouth two times a day. Take one capsule at 6am and one capsule at 6pm Patient should start on January 30, 2025. - carvedilol (COREG) 12.5 mg tablet Take 1 tablet by mouth two times a day. - Cholestyramine, Bulk, powd Take one(1) scoop dissolved in two(2) to six(6) ounces(oz) of fluid by mouth daily. - sulfamethoxazole-trimet hoprim (BACTRIM) 400-80 mg per tablet Take 1 tablet by mouth every Saturday, Saturday, and Saturday. - pantoprazole DR (PROTONIX) 20 mg tablet Take 1 tablet by mouth once daily. - predniSONE (DELTASONE) 5 mg tablet Take 1 tablet by mouth once daily. - buPROPion XL (WELLBUTRIN XL) 300 mg 24 hr tablet Take 1 tablet by mouth once daily. - buPROPion (WELLBUTRIN) 75 mg tablet Take 1 tablet by mouth once daily. - FLUoxetine (PROZAC) 10 mg capsule Take 1 capsule by mouth once daily. - gabapentin (NEURONTIN) 100 mg capsule Take 1 capsule by mouth daily at bedtime for 180 days. - loperamide (IMODIUM) 2 mg cap(s) Take 1 capsule by mouth four times a day as needed. - pseudoephedrine (SUDAFED) 30 mg tablet Take Four 4 (30 mg) Tablets for an erection lasting more than 2 hours. If not improved in 1 hour MUST go to ER - ergocalciferol 50,000 unit capsule (VITAMIN D2, DRISDOL) Take 1 capsule by mouth one time a week. - insulin 50/50 lispro protamine-lispro units/mL (HUMALOG MIX 50-50 KWIKPEN) 100 unit/mL (50-50) pen Inject 30 Units subcutaneously daily at bedtime. - glucagon 3 mg/actuation nasal spray (BAQSIMI) Use 1 [place] in the nose as needed for low blood sugar. May repeat after 15 minutes using a new device if there is no response. - aspirin 81 mg chewable tablet chew and swallow 1 tablet by mouth once daily. - fluticasone (FLONASE) 50 mcg/actuation nasal spray Use 2 Sprays in each nostril once daily. Problem List As Of Date 02/11/2025 Noted Resolved Uncontrolled type 2 diabetes mellitus with comp*04/17/2006 Hypertension goal BP (blood pressure) < 140/90 *04/17/2006 Other hyperlipidemia [E78.49] 04/17/2006 Depressive disorder, not elsewhere classified [*04/17/2006 04/02/2019 ED (erectile dysfunction) [N52.9] 09/30/2014 Lower urinary tract symptoms (LUTS) [R39.9] 09/30/2014 History of kidney stones [Z87.442] 09/30/2014 Microscopic hematuria [R31.29] 09/30/2014 Diabetic polyneuropathy associated with type 2 *05/03/2017 Acute pain of right shoulder [M25.511] 05/03/2017 04/02/2019 Nausea [R11.0] 11/15/2017 Vomiting [R11.10] 11/15/2017 Moderate episode of recurrent major depressive *11/26/2017 Stage 3a chronic kidney disease (HCC) [N18.31] 11/26/2017 Right leg weakness [R29.898] 06/14/2018 Gait instability [R26.81] 06/14/2018 CKD (chronic kidney disease) requiring chronic *12/16/2018 11/23/2022 Kidney transplant recipient [Z94.0] 03/09/2021 Type 1 diabetes mellitus on insulin therapy (HC*03/23/2021 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*01/22/2024 Diarrhea [R19.7] 04/01/2024 ILDA (acute kidney injury) [N17.9] 01/27/2025 01/29/2025 Complication of transplanted kidney (HCC) [T86.*01/27/2025 01/29/2025 Encounter for monitoring tacrolimus therapy [Z5*01/27/2025 Hydronephrosis [N13.30] 01/27/2025 01/29/2025 Immunosuppressive management encounter followin*01/27/2025 Nephrolithiasis [N20.0] 01/27/2025 Hyponatremia [E87.1] 01/28/2025 01/29/2025 Metabolic acidosis [E87.20] 01/28/2025 01/29/2025 Encounter Status:Closed by DALE RANGEL on 02/12/25 [facility] [place] 02-09-2025 CNPN Telephone (PODCCP) ITALO BURGOS ([id number]) 1970 M Date Time Provider Department 02/09/25 KERRY OSCAR PODCCP During your visit today, we recorded the following information about you: Kerry Oscar RN 02/09/2025 4:14 PM Signed Pt excluded from TCM-transplant patient and homeless-see Dr. Gaston epic note 02/05/25. Allergies As of Date: 02/09/2025 (No Known Allergies) Date Reviewed: 02/05/2025 Reviewed by: Francheska Carrington MA - Fully Assessed Prescriptions as of 02/09/2025 - escitalopram oxalate (LEXAPRO) 10 mg tablet Take 1 tablet by mouth once daily. - tacrolimus IR (PROGRAF) 1 mg capsule Take 1 capsule by mouth two times a day. Take one capsule at 6am and one capsule at 6pm Patient should start on January 30, 2025. - carvedilol (COREG) 12.5 mg tablet Take 1 tablet by mouth two times a day. - mycophenolate sodium DR (MYFORTIC) 180 mg EC tablet Take 2 tablets by mouth two times a day. - Cholestyramine, Bulk, powd Take one(1) scoop dissolved in two(2) to six(6) ounces(oz) of fluid by mouth daily. - sulfamethoxazole-trimet hoprim (BACTRIM) 400-80 mg per tablet Take 1 tablet by mouth every Saturday, Saturday, and Saturday. - pantoprazole DR (PROTONIX) 20 mg tablet Take 1 tablet by mouth once daily. - predniSONE (DELTASONE) 5 mg tablet Take 1 tablet by mouth once daily. - buPROPion XL (WELLBUTRIN XL) 300 mg 24 hr tablet Take 1 tablet by mouth once daily. - buPROPion (WELLBUTRIN) 75 mg tablet Take 1 tablet by mouth once daily. - FLUoxetine (PROZAC) 10 mg capsule Take 1 capsule by mouth once daily. - gabapentin (NEURONTIN) 100 mg capsule Take 1 capsule by mouth daily at bedtime for 180 days. - loperamide (IMODIUM) 2 mg cap(s) Take 1 capsule by mouth four times a day as needed. - pseudoephedrine (SUDAFED) 30 mg tablet Take Four 4 (30 mg) Tablets for an erection lasting more than 2 hours. If not improved in 1 hour MUST go to ER - ergocalciferol 50,000 unit capsule (VITAMIN D2, DRISDOL) Take 1 capsule by mouth one time a week. - insulin 50/50 lispro protamine-lispro units/mL (HUMALOG MIX 50-50 KWIKPEN) 100 unit/mL (50-50) pen Inject 30 Units subcutaneously daily at bedtime. - glucagon 3 mg/actuation nasal spray (BAQSIMI) Use 1 [place] in the nose as needed for low blood sugar. May repeat after 15 minutes using a new device if there is no response. - aspirin 81 mg chewable tablet chew and swallow 1 tablet by mouth once daily. - fluticasone (FLONASE) 50 mcg/actuation nasal spray Use 2 Sprays in each nostril once daily. Problem List As Of Date 02/09/2025 Noted Resolved Uncontrolled type 2 diabetes mellitus with comp*04/17/2006 Hypertension goal BP (blood pressure) < 140/90 *04/17/2006 Other hyperlipidemia [E78.49] 04/17/2006 Depressive disorder, not elsewhere classified [*04/17/2006 04/02/2019 ED (erectile dysfunction) [N52.9] 09/30/2014 Lower urinary tract symptoms (LUTS) [R39.9] 09/30/2014 History of kidney stones [Z87.442] 09/30/2014 Microscopic hematuria [R31.29] 09/30/2014 Diabetic polyneuropathy associated with type 2 *05/03/2017 Acute pain of right shoulder [M25.511] 05/03/2017 04/02/2019 Nausea [R11.0] 11/15/2017 Vomiting [R11.10] 11/15/2017 Moderate episode of recurrent major depressive *11/26/2017 Stage 3a chronic kidney disease (HCC) [N18.31] 11/26/2017 Right leg weakness [R29.898] 06/14/2018 Gait instability [R26.81] 06/14/2018 CKD (chronic kidney disease) requiring chronic *12/16/2018 11/23/2022 Kidney transplant recipient [Z94.0] 03/09/2021 Type 1 diabetes mellitus on insulin therapy (HC*03/23/2021 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*01/22/2024 Diarrhea [R19.7] 04/01/2024 ILDA (acute kidney injury) [N17.9] 01/27/2025 01/29/2025 Complication of transplanted kidney (HCC) [T86.*01/27/2025 01/29/2025 Encounter for monitoring tacrolimus therapy [Z5*01/27/2025 Hydronephrosis [N13.30] 01/27/2025 01/29/2025 Immunosuppressive management encounter followin*01/27/2025 Nephrolithiasis [N20.0] 01/27/2025 Hyponatremia [E87.1] 01/28/2025 01/29/2025 Metabolic acidosis [E87.20] 01/28/2025 01/29/2025 Encounter Status:Closed by [facility] ITALO BUR[facility] ([id number]) 1970 M Date Time Provider Department 02/08/25 AMANDA HAYES TXCTGL During your visit today, we recorded the following information about you: Amanda Hayes, ROAD ENGINEER 02/08/2025 2:03 PM Signed ADDY attempted to return pt's phone call. SW left pt a voicemail and will await return phone call. MATTHEW Sahu Transplant Concrete Paving Machine Operator Allergies As of Date: 02/08/2025 (No Known Allergies) Date Reviewed: 02/05/2025 Reviewed by: Francheska Carrington MA - Fully Assessed Reason for Visit: Follow Up [171] Prescriptions as of 02/08/2025 - escitalopram oxalate (LEXAPRO) 10 mg tablet Take 1 tablet by mouth once daily. - tacrolimus IR (PROGRAF) 1 mg capsule Take 1 capsule by mouth two times a day. Take one capsule at 6am and one capsule at 6pm Patient should start on January 30, 2025. - carvedilol (COREG) 12.5 mg tablet Take 1 tablet by mouth two times a day. - mycophenolate sodium DR (MYFORTIC) 180 mg EC tablet Take 2 tablets by mouth two times a day. - Cholestyramine, Bulk, powd Take one(1) scoop dissolved in two(2) to six(6) ounces(oz) of fluid by mouth daily. - sulfamethoxazole-trimet hoprim (BACTRIM) 400-80 mg per tablet Take 1 tablet by mouth every Saturday, Saturday, and Saturday. - pantoprazole DR (PROTONIX) 20 mg tablet Take 1 tablet by mouth once daily. - predniSONE (DELTASONE) 5 mg tablet Take 1 tablet by mouth once daily. - buPROPion XL (WELLBUTRIN XL) 300 mg 24 hr tablet Take 1 tablet by mouth once daily. - buPROPion (WELLBUTRIN) 75 mg tablet Take 1 tablet by mouth once daily. - FLUoxetine (PROZAC) 10 mg capsule Take 1 capsule by mouth once daily. - gabapentin (NEURONTIN) 100 mg capsule Take 1 capsule by mouth daily at bedtime for 180 days. - loperamide (IMODIUM) 2 mg cap(s) Take 1 capsule by mouth four times a day as needed. - pseudoephedrine (SUDAFED) 30 mg tablet Take Four 4 (30 mg) Tablets for an erection lasting more than 2 hours. If not improved in 1 hour MUST go to ER - ergocalciferol 50,000 unit capsule (VITAMIN D2, DRISDOL) Take 1 capsule by mouth one time a week. - insulin 50/50 lispro protamine-lispro units/mL (HUMALOG MIX 50-50 KWIKPEN) 100 unit/mL (50-50) pen Inject 30 Units subcutaneously daily at bedtime. - glucagon 3 mg/actuation nasal spray (BAQSIMI) Use 1 [place] in the nose as needed for low blood sugar. May repeat after 15 minutes using a new device if there is no response. - aspirin 81 mg chewable tablet chew and swallow 1 tablet by mouth once daily. - fluticasone (FLONASE) 50 mcg/actuation nasal spray Use 2 Sprays in each nostril once daily. Problem List As Of Date 02/08/2025 Noted Resolved Uncontrolled type 2 diabetes mellitus with comp*04/17/2006 Hypertension goal BP (blood pressure) < 140/90 *04/17/2006 Other hyperlipidemia [E78.49] 04/17/2006 Depressive disorder, not elsewhere classified [*04/17/2006 04/02/2019 ED (erectile dysfunction) [N52.9] 09/30/2014 Lower urinary tract symptoms (LUTS) [R39.9] 09/30/2014 History of kidney stones [Z87.442] 09/30/2014 Microscopic hematuria [R31.29] 09/30/2014 Diabetic polyneuropathy associated with type 2 *05/03/2017 Acute pain of right shoulder [M25.511] 05/03/2017 04/02/2019 Nausea [R11.0] 11/15/2017 Vomiting [R11.10] 11/15/2017 Moderate episode of recurrent major depressive *11/26/2017 Stage 3a chronic kidney disease (HCC) [N18.31] 11/26/2017 Right leg weakness [R29.898] 06/14/2018 Gait instability [R26.81] 06/14/2018 CKD (chronic kidney disease) requiring chronic *12/16/2018 11/23/2022 Kidney transplant recipient [Z94.0] 03/09/2021 Type 1 diabetes mellitus on insulin therapy (HC*03/23/2021 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*01/22/2024 Diarrhea [R19.7] 04/01/2024 ILDA (acute kidney injury) [N17.9] 01/27/2025 01/29/2025 Complication of transplanted kidney (HCC) [T86.*01/27/2025 01/29/2025 Encounter for monitoring tacrolimus therapy [Z5*01/27/2025 Hydronephrosis [N13.30] 01/27/2025 01/29/2025 Immunosuppressive management encounter followin*01/27/2025 Nephrolithiasis [N20.0] 01/27/2025 Hyponatremia [E87.1] 01/28/2025 01/29/2025 Metabolic acidosis [E87.20] 01/28/2025 01/29/2025 Encounter Status:Closed by AMANDA HAYES on 02/08/25 Normal [facility] Emergency Department Summary on 02-07-2025 Emergency Department Summary [facility] Medical Records Department [address] [place] [address] Emergency Department Summary 02/07/25 MR#: [id number] Acct: [id number] Name: ITALO BURGOS Rep #: [id number] : 1970 54 From: Toni Nelson DO PCP: Dr. Zaida Gaston MD Status:REG ER Location: ED HPI History of Present Illness Chief Complaint: Complaint Detail of Chief Complaint: Leaking urostomy bag Informant: patient Narrative Narrative: Patient presents to the emergency department with complaint of leaking from his urostomy bag. Patient states that he was at this facility a week ago and had a kidney stone in his transplanted kidney and therefore was transferred up to [facility] where they remove the kidney stone and placed a urostomy tube. Patient notices that his bag is leaking and would like a new bag. He denies fevers or chills or sweats. He is otherwise doing well. His transplant was 5 years ago. [facility] Medical History Congestive heart failure (CHF) Diabetic foot ulcer Gas gangrene of foot Necrotizing fasciitis Diabetic foot infection Type 2 diabetes mellitus with diabetic polyneuropathy 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 exposed Vision loss of left eye Respiratory failure Hypoxemia COVID-19 COVID-19 Type 2 diabetes mellitus with diabetic polyneuropathy Cellulitis of left lower limb Pulmonary edema Dyspnea Fistula ( 12/2018) History of left heart catheterization (LHC) ( 06/26/11) Atherosclerotic heart disease of [place] coronary artery without angina pectoris Essential hypertension Problem with dialysis access Chronic renal failure, stage 5 Vision problems Pneumonia Kidney stones Kidney failure Anasarca associated with disorder of kidney Autonomic neuropathy Hypoglycemia Acute hypoxemic respiratory failure Acute on chronic diastolic CHF (congestive heart failure) Retention, urine Obesity (BMI 30-39.9) Acute respiratory failure with hypoxia Hypokalemia Noncompliance Diabetic neuropathy Diabetic nephropathy Diabetic retinopathy ILDA (acute kidney injury) Hypertensive emergency Chewing tobacco nicotine dependence GERD (gastroesophageal reflux disease) Anxiety and depression Diabetes mellitus type II, uncontrolled Blind left eye HLD (hyperlipidemia) Right leg pain Chronic ulcer of 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 Cellulitis and abscess of right leg History of acute myocardial infarction Home Medications ???Medication ???Instructions ???Recorded ???Last Taken ???Type pantoprazole 20 mg tablet,delayed 20 mg PO DAILY gerd 09/18/2101/08 History release (Protonix) prednisone 5 mg tablet 5 mg PO DAILY steroid 09/18/21 History tacrolimus 1 mg tablet,extended 1 mg PO DAILY rejection med 01/26/25 History release 24 hr (Envarsus XR) cholecalciferol (vitamin D3) 25 25 mcg PO FR SUPPLEMENT' 12/26/21 01/22/25 History mcg (1,000 unit) capsule (Vitamin D3) losartan 25 mg tablet 25 mg PO DAILY BP 09/05/22 5 History acetaminophen 500 mg tablet 500 mg PO Q4H PRN Pain 11/01/22 History aspirin 81 mg chewable tablet 81 mg PO DAILY HEALTH 11/01/22 History gabapentin 100 mg capsule 100 mg PO QHS NERVE PAIN 11/01/22 01/24/25 History atenolol 100 mg tablet 100 mg PO DAILY 03/14/23 01/26/25 History bupropion HCl 75 mg tablet 75 mg PO DAILY 03/24/24 01/26/25 H istory fluoxetine 10 mg capsule 10 mg PO DAILY 03/24/24 Unknown Hi story insulin lispro protamine-lispro See Rx Instructions subcut .tid Unknown Rx 100 unit/mL (50-50) subcutaneous with meals #42 mL pen (Humalog Mix 50-50 KwikPen) Trulicity 4.5 mg/0.5 mL 4.5 mg (0.5 mL) subcut QWEEK #6 mL 07/17/24 01/21/25 Rx subcutaneous pen injector (dulaglutide) metoclopramide HCl 5 mg tablet 5 mg PO Q6H PRN vertigo #10 tabs 11/19/24 01/26/25 Rx (Reglan) bupropion HCl 300 mg 24 hr tablet, 300 mg PO DAILY 01/26/25 Unknown History extended release carvedilol 25 mg tablet 25 mg PO BID 01/26/25 Unknown Hist ory mycophenolate sodium 180 mg 360 mg PO BID 01/26/25 Unknown His tory tablet,delayed release sulfamethoxazole 400 1 tab PO MOWEFR 01/26/25 Unknown H istory mg-trimethoprim 80 mg tablet Allergy/AdvReac Type Severity Reaction Status Date / Time No Known Allergies Allergy Verified 02/07/25 13:10 Family History Mother Heart disease Hypertension Father Cancer Brother Cancer Diabetes Sister Diabetes Other Alcohol abuse Depression H/O transfusion of whole blood Kidney disease Surgical History Renal transplant recipient Kidney replaced by transplant H (more content not included)... Normal [facility] 02-05-2025 [facility] Office Visit (INTMWS ) ITALO BURGOS ([id number]) 1970 M Date Time Provider Department 02/05/25 11:40 AM ZAIDA GASTON INTMWS During your visit today, we recorded the following information about you: Pulse Respiration Blood pressure Weight 93/minute 16/minute 106/68 82.3 kg Zaida Gaston MD 02/05/2025 11:40 AM Signed We discussed your kidney stones and nephrostomy tube: - You currently have a nephrostomy tube in place. You are changing it every 5 days and have not had any issues managing it on your own. - You have a follow-up appointment with Urology at the [facility] next to discuss the next steps, including whether the tube will be removed or kept in place. Dr. Maryjane Quinteros will see you at [facility]. - Please ensure you have transportation arranged for this appointment. We discussed your diabetes and blood sugar management: - Your blood sugar levels remain high, with a reading of 190 this morning. You are not currently checking your blood sugar after meals. - I will connect you with a pharmacist to help manage your diabetes and provide more frequent follow-up. They will also assist you with using your continuous glucose monitor (G7) if needed. - Please continue monitoring your blood sugar levels regularly and follow the pharmacist's guidance. We discussed your blood pressure and medications: - Your blood pressure is well-controlled today. - Your losartan has been discontinued due to concerns about your kidney function. Please continue taking carvedilol 12.5 mg as prescribed. - If you have any issues with your medications, let me know. We discussed your mental health: - You are currently taking Wellbutrin 300 mg and 75 mg daily. I have added Lexapro to your regimen to help address symptoms of depression. This prescription has been sent to [facility]. - If you experience any side effects or feel the medication is not helping, please let me know so we can adjust your treatment. We discussed your living situation and overall well-being: - You are currently staying at [facility], a correction for homeless individuals. I encourage you to focus on self-care and maintaining your health during this time. - Once your nephrostomy tube is removed, consider engaging in small acts of volunteering, such as visiting nursing homes or helping others. This may provide a sense of purpose and improve your overall mood. We discussed your lab work: - Your hemoglobin level is 13, which is within the normal range. No concerns at this time. - Please complete your standing lab orders as soon as possible to monitor your kidney function and overall health. Next steps: - Attend your urology appointment next at the [facility]. - Work with the pharmacist to improve your blood sugar control and learn how to use your continuous glucose monitor. - Continue taking your medications as prescribed, including the newly added Lexapro. - Complete your standing lab orders. - Reach out to me if you have any concerns or if your symptoms worsen. Zaida Gaston MD 02/05/2025 3:00 PM Signed Reason for Visit Follow up HPI Italo is a 54-year-old male with a history of nephrolithiasis, T1DM, and depression, presenting for follow-up. Italo was recently hospitalized for nephrolithiasis, during which a nephrostomy tube was placed. He has a follow-up appointment with urology next to discuss the potential removal of the nephrostomy tube. He changes the nephrostomy tube every 5 days and denies any issues with the process. He is able to manage his medications independently and declines assistance from an adherence pharmacy. He reports hyperglycemia, with a recent blood glucose reading of 425 mg/dL. This morning, his blood glucose was 190 mg/dL. He does not monitor his blood glucose levels postprandially. He was previously using a Dexcom G6 CGM, which was recently changed to a G7, but he is unsure how to use the new device. Italo is currently residing at [facility], a correction for homeless individuals, since September. He previously lived with his sister but left due to conflicts. He expresses feelings of depression related to his current living situation and health issues. He is currently taking Wellbutrin 300 mg and 75 mg for depression. He has not tried Celexa, Lexapro, or Zoloft. Social History Tobacco Use Smoking status: Never Smokeless tobacco: Former Types: Snuff Tobacco comments: snuff x 33 years Quit in 2020 Vaping Use Vaping status: Never Used Substance Use Topics Alcohol use: Not Currently Drug use: Not Currently Types: Marijuana Past medical history, appointments, medications, allergies reviewed. Pertinent Lab/Diagnostic Studies are reviewed and discussed today Current Outpatient Medications: tacrolimus IR (PROGRAF) 1 mg capsule carvedilol (COREG) 12.5 m (more content not included)... Normal [facility] [place] 02-05-2025 [facility] Telephone (Angio) BURGOS,ITALO D ([id number]) 1970 M Date Time Provider Department 02/05/25 DANNI SINGH Angio During your visit today, we recorded the following information about you: Danni Singh RN 02/05/2025 9:44 AM Signed SERVICE DATE: February 05, 2025 SERVICE TIME: 934 CONSULTING SERVICE: Interventional Radiology IMPRESSION/RECOMMENDATI ONS Italo was contacted today for follow up s/p placement of Nephrostomy/Nephrourete ral catheter(s). - Nephrostomy/Nephrourete ral tube(s) to gravity drainage with reported good output. Color clear/yellow. - Discussed signs and symptoms of infection. - Reviewed how to manage common tube related problems and emergency situations. - Emergency telephone contact information reviewed. - Reviewed dressing changes and tube flushing. - Tube care supplies adequate. - Routine tube change scheduled: 02/25 NEPH TUBE CARE INSTRUCTIONS: 1) Leave drain to gravity at all times. 2) Gently cleanse area around drain insertion site with warm soap and water, rinse, pat dry and apply clean dry dressing every other day and PRN wet or soiled. 3) If catheter stops draining urine and/or patient develops, fever greater than 100.4 F, flank pain, saturated dressings, check catheter for kinks, and remove bag at luer lock connection to gently flush drain with 5 ml NS. 4) If questions or concerns were to arise please call interventional radiology nurse line at M-F 7am - 3:30 am. After hours please call or and ask the electric detector operator to page the interventional energy operations vice president cargo operations agent. 5) To change or schedule an appointment with interventional radiology please call scheduling at . Instructions for My Care at Home or Healthcare Facility Additional Health Information I Need to Know After I Leave theHospital:Symptoms of an Infection to Watch for Include: Fever Swelling Increase in Redness Pus Call your doctor if you: See signs of infection, such as redness, drainage, foul odor, or swelling at the tube site. Have a temperature higher than 100.4?F or 38?C. Develop shaking chills. Do not have relief from pain or the flow is not restored after flushing. See bright red blood in your urine (some pink-tinged urine is to be expected). Notice a foul odor in your urine. Watch for the following: Wet dressing Pain in your back or sides Little or no urine drainage If you have any of the above signs or symptoms, follow these steps: If your tube is already attached to a drainage bag, remove your dressing and check to see if the tube is kinked. If the tube is kinked, straighten the tube until fluid begins to flow. If fluid does not drain after removing the kink in the tube, you may need to gently flush the tube. If your tube is capped attach a drainage bag. Be sure the drainage bag is below the level of the tube site. Wound Care/Surgical Site Care: Keep the dressing that is over the tube site clean and dry. You may have a stitch holding your tube in place. If the stitch breaks, call your doctor. Your tube may have a lock that holds it in place. Do not open the lock. Always keep the bag below the tube site to allow proper drainage by gravity. Your dressing should be changed every other day or sooner if it becomes wet, soiled, falls off, or unless instructed otherwise. It is easier if someone helps you change the dressing. Change the drainage bag monthly.. It is important that the tube remain in the proper position and does not become kinked. You may shower. DO NOT swim or soak in water. Please refer to the YouTube video for nephrostomy tube care instructions and demonstrations. https://youtu.be/CbNYnj [email or web address] Activity and Exercise: (When I can drive, return to work) Rest when you get home after the procedure. We recommend a responsible adult stay with you overnight after the procedure. Avoid lying or sleeping on your back to prevent kinking of the tube. You may resume your normal activities 24 hours after the procedure. Follow-Up Appointment Reminders: (A list of any scheduled appointments is at the end of this document) For routine concerns please call Interventional Radiology nurse triage line [phone], Saturday - Saturday 9 a.m. - 4 p.m. After hours please call and ask for Interventional Radiology Fellow cargo operations agent, pager [phone]. In the event of acute symptoms report directly to local emergency department and notify the Department of Intervention Radiology after the fact. All questions and concerns were addressed. I spent 10 minutes on the above conversation with the patient. Allergies As of Date: 02/05/2025 (No Known Allergies) Date Reviewed: 01/29/2025 Reviewed by: Charan Trinidad RN - Fully Assessed Prescriptions as of 02/05/2025 - tacrolimus IR (PROGRAF) 1 mg (more content not included)... [facility]PODCCP[facility] ITALO BURGOS ([id number]) 1970 M Date Time Provider Department 02/04/25 ZAIDA GASTON PODCC During your visit today, we recorded the following information about you: Azra Hogan 02/04/2025 10:01 AM Signed Patient is an exclusion from post discharge call back program (transplant patient) Allergies As of Date: 02/04/2025 (No Known Allergies) Date Reviewed: 01/29/2025 Reviewed by: Charan Trinidad RN - Fully Assessed Reason for Visit: Transition Of Care [4074] Prescriptions as of 02/04/2025 - tacrolimus IR (PROGRAF) 1 mg capsule Take 1 capsule by mouth two times a day. Take one capsule at 6am and one capsule at 6pm Patient should start on January 30, 2025. - carvedilol (COREG) 12.5 mg tablet Take 1 tablet by mouth two times a day. - mycophenolate sodium DR (MYFORTIC) 180 mg EC tablet Take 2 tablets by mouth two times a day. - Cholestyramine, Bulk, powd Take one(1) scoop dissolved in two(2) to six(6) ounces(oz) of fluid by mouth daily. - sulfamethoxazole-trimet hoprim (BACTRIM) 400-80 mg per tablet Take 1 tablet by mouth every Saturday, Saturday, and Saturday. - pantoprazole DR (PROTONIX) 20 mg tablet Take 1 tablet by mouth once daily. - predniSONE (DELTASONE) 5 mg tablet Take 1 tablet by mouth once daily. - buPROPion XL (WELLBUTRIN XL) 300 mg 24 hr tablet Take 1 tablet by mouth once daily. - buPROPion (WELLBUTRIN) 75 mg tablet Take 1 tablet by mouth once daily. - FLUoxetine (PROZAC) 10 mg capsule Take 1 capsule by mouth once daily. - gabapentin (NEURONTIN) 100 mg capsule Take 1 capsule by mouth daily at bedtime for 180 days. - loperamide (IMODIUM) 2 mg cap(s) Take 1 capsule by mouth four times a day as needed. - pseudoephedrine (SUDAFED) 30 mg tablet Take Four 4 (30 mg) Tablets for an erection lasting more than 2 hours. If not improved in 1 hour MUST go to ER - ergocalciferol 50,000 unit capsule (VITAMIN D2, DRISDOL) Take 1 capsule by mouth one time a week. - insulin 50/50 lispro protamine-lispro units/mL (HUMALOG MIX 50-50 KWIKPEN) 100 unit/mL (50-50) pen Inject 30 Units subcutaneously daily at bedtime. - glucagon 3 mg/actuation nasal spray (BAQSIMI) Use 1 [place] in the nose as needed for low blood sugar. May repeat after 15 minutes using a new device if there is no response. - aspirin 81 mg chewable tablet chew and swallow 1 tablet by mouth once daily. - fluticasone (FLONASE) 50 mcg/actuation nasal spray Use 2 Sprays in each nostril once daily. Problem List As Of Date 02/04/2025 Noted Resolved Uncontrolled type 2 diabetes mellitus with comp*04/17/2006 Hypertension goal BP (blood pressure) < 140/90 *04/17/2006 Other hyperlipidemia [E78.49] 04/17/2006 Depressive disorder, not elsewhere classified [*04/17/2006 04/02/2019 ED (erectile dysfunction) [N52.9] 09/30/2014 Lower urinary tract symptoms (LUTS) [R39.9] 09/30/2014 History of kidney stones [Z87.442] 09/30/2014 Microscopic hematuria [R31.29] 09/30/2014 Diabetic polyneuropathy associated with type 2 *05/03/2017 Acute pain of right shoulder [M25.511] 05/03/2017 04/02/2019 Nausea [R11.0] 11/15/2017 Vomiting [R11.10] 11/15/2017 Moderate episode of recurrent major depressive *11/26/2017 Stage 3a chronic kidney disease (HCC) [N18.31] 11/26/2017 Right leg weakness [R29.898] 06/14/2018 Gait instability [R26.81] 06/14/2018 CKD (chronic kidney disease) requiring chronic *12/16/2018 11/23/2022 Kidney transplant recipient [Z94.0] 03/09/2021 Type 1 diabetes mellitus on insulin therapy (HC*03/23/2021 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*01/22/2024 Diarrhea [R19.7] 04/01/2024 ILDA (acute kidney injury) [N17.9] 01/27/2025 01/29/2025 Complication of transplanted kidney (HCC) [T86.*01/27/2025 01/29/2025 Encounter for monitoring tacrolimus therapy [Z5*01/27/2025 Hydronephrosis [N13.30] 01/27/2025 01/29/2025 Immunosuppressive management encounter followin*01/27/2025 Nephrolithiasis [N20.0] 01/27/2025 Hyponatremia [E87.1] 01/28/2025 01/29/2025 Metabolic acidosis [E87.20] 01/28/2025 01/29/2025 Encounter Status:Closed by AZRA HOGAN on 02/04/25 [facility] [place] 02-03-2025 [facility] Telephone (Angio) ITALO BURGOS ([id number]) 1970 M Date Time Provider Department 02/03/25 DANNI SINGH Angio During your visit today, we recorded the following information about you: Danni Singh RN 02/03/2025 11:34 AM Signed Interventional Radiology Follow Up Call Attempted to reach Italo today for follow up from their tube placement. Unable to reach them at this time. Message left with phone number to return the call. Allergies As of Date: 02/03/2025 (No Known Allergies) Date Reviewed: 01/29/2025 Reviewed by: Charan Trinidad RN - Fully Assessed Prescriptions as of 02/03/2025 - tacrolimus IR (PROGRAF) 1 mg capsule Take 1 capsule by mouth two times a day. Take one capsule at 6am and one capsule at 6pm Patient should start on January 30, 2025. - carvedilol (COREG) 12.5 mg tablet Take 1 tablet by mouth two times a day. - mycophenolate sodium DR (MYFORTIC) 180 mg EC tablet Take 2 tablets by mouth two times a day. - Cholestyramine, Bulk, powd Take one(1) scoop dissolved in two(2) to six(6) ounces(oz) of fluid by mouth daily. - sulfamethoxazole-trimet hoprim (BACTRIM) 400-80 mg per tablet Take 1 tablet by mouth every Saturday, Saturday, and Saturday. - pantoprazole DR (PROTONIX) 20 mg tablet Take 1 tablet by mouth once daily. - predniSONE (DELTASONE) 5 mg tablet Take 1 tablet by mouth once daily. - buPROPion XL (WELLBUTRIN XL) 300 mg 24 hr tablet Take 1 tablet by mouth once daily. - buPROPion (WELLBUTRIN) 75 mg tablet Take 1 tablet by mouth once daily. - FLUoxetine (PROZAC) 10 mg capsule Take 1 capsule by mouth once daily. - gabapentin (NEURONTIN) 100 mg capsule Take 1 capsule by mouth daily at bedtime for 180 days. - loperamide (IMODIUM) 2 mg cap(s) Take 1 capsule by mouth four times a day as needed. - pseudoephedrine (SUDAFED) 30 mg tablet Take Four 4 (30 mg) Tablets for an erection lasting more than 2 hours. If not improved in 1 hour MUST go to ER - ergocalciferol 50,000 unit capsule (VITAMIN D2, DRISDOL) Take 1 capsule by mouth one time a week. - insulin 50/50 lispro protamine-lispro units/mL (HUMALOG MIX 50-50 KWIKPEN) 100 unit/mL (50-50) pen Inject 30 Units subcutaneously daily at bedtime. - glucagon 3 mg/actuation nasal spray (BAQSIMI) Use 1 [place] in the nose as needed for low blood sugar. May repeat after 15 minutes using a new device if there is no response. - aspirin 81 mg chewable tablet chew and swallow 1 tablet by mouth once daily. - fluticasone (FLONASE) 50 mcg/actuation nasal spray Use 2 Sprays in each nostril once daily. Problem List As Of Date 02/03/2025 Noted Resolved Uncontrolled type 2 diabetes mellitus with comp*04/17/2006 Hypertension goal BP (blood pressure) < 140/90 *04/17/2006 Other hyperlipidemia [E78.49] 04/17/2006 Depressive disorder, not elsewhere classified [*04/17/2006 04/02/2019 ED (erectile dysfunction) [N52.9] 09/30/2014 Lower urinary tract symptoms (LUTS) [R39.9] 09/30/2014 History of kidney stones [Z87.442] 09/30/2014 Microscopic hematuria [R31.29] 09/30/2014 Diabetic polyneuropathy associated with type 2 *05/03/2017 Acute pain of right shoulder [M25.511] 05/03/2017 04/02/2019 Nausea [R11.0] 11/15/2017 Vomiting [R11.10] 11/15/2017 Moderate episode of recurrent major depressive *11/26/2017 Stage 3a chronic kidney disease (HCC) [N18.31] 11/26/2017 Right leg weakness [R29.898] 06/14/2018 Gait instability [R26.81] 06/14/2018 CKD (chronic kidney disease) requiring chronic *12/16/2018 11/23/2022 Kidney transplant recipient [Z94.0] 03/09/2021 Type 1 diabetes mellitus on insulin therapy (HC*03/23/2021 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*01/22/2024 Diarrhea [R19.7] 04/01/2024 ILDA (acute kidney injury) [N17.9] 01/27/2025 01/29/2025 Complication of transplanted kidney (HCC) [T86.*01/27/2025 01/29/2025 Encounter for monitoring tacrolimus therapy [Z5*01/27/2025 Hydronephrosis [N13.30] 01/27/2025 01/29/2025 Immunosuppressive management encounter followin*01/27/2025 Nephrolithiasis [N20.0] 01/27/2025 Hyponatremia [E87.1] 01/28/2025 01/29/2025 Metabolic acidosis [E87.20] 01/28/2025 01/29/2025 Encounter Status:Closed by DANNI SINGH on 02/03/25 [facility] CNPN Telephone (TXCTGL) ITALO BURGOS ([id number]) 1970 M Date Time Provider Department 02/03/25 AMANDA HAYES TXANDREI During your visit today, we recorded the following information about you: Amanda Hayes LISW 02/03/2025 2:14 PM Signed ADDY made another attempt to contact ([phone]) pt regarding the pt possibility of him being homeless. ADDY left a voicemail and will await return phone call. SARA Sahu-S Transplant [employer] Allergies As of Date: 02/03/2025 (No Known Allergies) Date Reviewed: 01/29/2025 Reviewed by: Charan Trinidad, ANDER - Fully Assessed Reason for Visit: Follow Up [171] Prescriptions as of 02/03/2025 - tacrolimus IR (PROGRAF) 1 mg capsule Take 1 capsule by mouth two times a day. Take one capsule at 6am and one capsule at 6pm Patient should start on January 30, 2025. - carvedilol (COREG) 12.5 mg tablet Take 1 tablet by mouth two times a day. - mycophenolate sodium DR (MYFORTIC) 180 mg EC tablet Take 2 tablets by mouth two times a day. - Cholestyramine, Bulk, powd Take one(1) scoop dissolved in two(2) to six(6) ounces(oz) of fluid by mouth daily. - sulfamethoxazole-trimet hoprim (BACTRIM) 400-80 mg per tablet Take 1 tablet by mouth every Saturday, Saturday, and Saturday. - pantoprazole DR (PROTONIX) 20 mg tablet Take 1 tablet by mouth once daily. - predniSONE (DELTASONE) 5 mg tablet Take 1 tablet by mouth once daily. - buPROPion XL (WELLBUTRIN XL) 300 mg 24 hr tablet Take 1 tablet by mouth once daily. - buPROPion (WELLBUTRIN) 75 mg tablet Take 1 tablet by mouth once daily. - FLUoxetine (PROZAC) 10 mg capsule Take 1 capsule by mouth once daily. - gabapentin (NEURONTIN) 100 mg capsule Take 1 capsule by mouth daily at bedtime for 180 days. - loperamide (IMODIUM) 2 mg cap(s) Take 1 capsule by mouth four times a day as needed. - pseudoephedrine (SUDAFED) 30 mg tablet Take Four 4 (30 mg) Tablets for an erection lasting more than 2 hours. If not improved in 1 hour MUST go to ER - ergocalciferol 50,000 unit capsule (VITAMIN D2, DRISDOL) Take 1 capsule by mouth one time a week. - insulin 50/50 lispro protamine-lispro units/mL (HUMALOG MIX 50-50 KWIKPEN) 100 unit/mL (50-50) pen Inject 30 Units subcutaneously daily at bedtime. - glucagon 3 mg/actuation nasal spray (BAQSIMI) Use 1 [place] in the nose as needed for low blood sugar. May repeat after 15 minutes using a new device if there is no response. - aspirin 81 mg chewable tablet chew and swallow 1 tablet by mouth once daily. - fluticasone (FLONASE) 50 mcg/actuation nasal spray Use 2 Sprays in each nostril once daily. Problem List As Of Date 02/03/2025 Noted Resolved Uncontrolled type 2 diabetes mellitus with comp*04/17/2006 Hypertension goal BP (blood pressure) < 140/90 *04/17/2006 Other hyperlipidemia [E78.49] 04/17/2006 Depressive disorder, not elsewhere classified [*04/17/2006 04/02/2019 ED (erectile dysfunction) [N52.9] 09/30/2014 Lower urinary tract symptoms (LUTS) [R39.9] 09/30/2014 History of kidney stones [Z87.442] 09/30/2014 Microscopic hematuria [R31.29] 09/30/2014 Diabetic polyneuropathy associated with type 2 *05/03/2017 Acute pain of right shoulder [M25.511] 05/03/2017 04/02/2019 Nausea [R11.0] 11/15/2017 Vomiting [R11.10] 11/15/2017 Moderate episode of recurrent major depressive *11/26/2017 Stage 3a chronic kidney disease (HCC) [N18.31] 11/26/2017 Right leg weakness [R29.898] 06/14/2018 Gait instability [R26.81] 06/14/2018 CKD (chronic kidney disease) requiring chronic *12/16/2018 11/23/2022 Kidney transplant recipient [Z94.0] 03/09/2021 Type 1 diabetes mellitus on insulin therapy (HC*03/23/2021 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*01/22/2024 Diarrhea [R19.7] 04/01/2024 ILDA (acute kidney injury) [N17.9] 01/27/2025 01/29/2025 Complication of transplanted kidney (HCC) [T86.*01/27/2025 01/29/2025 Encounter for monitoring tacrolimus therapy [Z5*01/27/2025 Hydronephrosis [N13.30] 01/27/2025 01/29/2025 Immunosuppressive management encounter followin*01/27/2025 Nephrolithiasis [N20.0] 01/27/2025 Hyponatremia [E87.1] 01/28/2025 01/29/2025 Metabolic acidosis [E87.20] 01/28/2025 01/29/2025 Encounter Status:Closed by [facility]AN[facility]ES [facility]03[facility]25 [facility]URON[facility] BURGOSITALO ([id number]) 1970 M Date Time Provider Department 02/02/25 BON CONCEPCION During your visit today, we recorded the following information about you: Bon Concepcion RN 02/02/2025 10:52 AM Signed Delfino Helm Anna, MD; Bon Concepcion RN Left message on pt's VM to contact the office to confirm procedure date and set up consultation appt. Bon Concepcion RN 02/02/2025 10:52 AM Signed Called patient to discuss scheduling surgery and consult with Dr. Wesley for kidney stone removal. No answer, Mailbox full. Mobile phone would not go through. Bon Concepcion RN February 02, 2025 ----- Neli Wesley MD [facility], Jamal; [facility] This one we can add on for a consultation at any location. I won't do his surgery until March since he has a NT Chris - this one can be scheduled on March 18. Will need preops and likely NT exchange prior to the date of surgery given the timeframe Right transplant kidney PCNL and antegrade ureteroscopy with laser lithotripsy. Thanks Neli Wesley MD Previous Messages ----- Message ----- From: Jordyn Robb MD Sent: 01/28/2025 6:56 AM EDT To: Neli Wesley MD Subject: Kidney transplant with onstructig mid ureter* Hello Dr. Wesley, I requested an appointment with you to discuss antegrade stone management, Patient got his NT and Cr trending down now. Thank you Bon Rivas RN 02/02/2025 12:20 PM Signed [facility], Neli Yee MD; Bon Concepcion RN I also called pt again as well and phone goes to but is full. I will sent a mychart to pt as well to contact the office for assistance with scheduling Allergies As of Date: 02/02/2025 (No Known Allergies) Date Reviewed: 01/29/2025 Reviewed by: Charan Trinidad RN - Fully Assessed Prescriptions as of 02/02/2025 - tacrolimus IR (PROGRAF) 1 mg capsule Take 1 capsule by mouth two times a day. Take one capsule at 6am and one capsule at 6pm Patient should start on January 30, 2025. - carvedilol (COREG) 12.5 mg tablet Take 1 tablet by mouth two times a day. - mycophenolate sodium DR (MYFORTIC) 180 mg EC tablet Take 2 tablets by mouth two times a day. - Cholestyramine, Bulk, powd Take one(1) scoop dissolved in two(2) to six(6) ounces(oz) of fluid by mouth daily. - sulfamethoxazole-trimet hoprim (BACTRIM) 400-80 mg per tablet Take 1 tablet by mouth every Saturday, Saturday, and Saturday. - pantoprazole DR (PROTONIX) 20 mg tablet Take 1 tablet by mouth once daily. - predniSONE (DELTASONE) 5 mg tablet Take 1 tablet by mouth once daily. - buPROPion XL (WELLBUTRIN XL) 300 mg 24 hr tablet Take 1 tablet by mouth once daily. - buPROPion (WELLBUTRIN) 75 mg tablet Take 1 tablet by mouth once daily. - FLUoxetine (PROZAC) 10 mg capsule Take 1 capsule by mouth once daily. - gabapentin (NEURONTIN) 100 mg capsule Take 1 capsule by mouth daily at bedtime for 180 days. - loperamide (IMODIUM) 2 mg cap(s) Take 1 capsule by mouth four times a day as needed. - pseudoephedrine (SUDAFED) 30 mg tablet Take Four 4 (30 mg) Tablets for an erection lasting more than 2 hours. If not improved in 1 hour MUST go to ER - ergocalciferol 50,000 unit capsule (VITAMIN D2, DRISDOL) Take 1 capsule by mouth one time a week. - insulin 50/50 lispro protamine-lispro units/mL (HUMALOG MIX 50-50 KWIKPEN) 100 unit/mL (50-50) pen Inject 30 Units subcutaneously daily at bedtime. - glucagon 3 mg/actuation nasal spray (BAQSIMI) Use 1 [place] in the nose as needed for low blood sugar. May repeat after 15 minutes using a new device if there is no response. - aspirin 81 mg chewable tablet chew and swallow 1 tablet by mouth once daily. - fluticasone (FLONASE) 50 mcg/actuation nasal spray Use 2 Sprays in each nostril once daily. Problem List As Of Date 02/02/2025 Noted Resolved Uncontrolled type 2 diabetes mellitus with comp*04/17/2006 Hypertension goal BP (blood pressure) < 140/90 *04/17/2006 Other hyperlipidemia [E78.49] 04/17/2006 Depressive disorder, not elsewhere classified [*04/17/2006 04/02/2019 ED (erectile dysfunction) [N52.9] 09/30/2014 Lower urinary tract symptoms (LUTS) [R39.9] 09/30/2014 History of kidney stones [Z87.442] 09/30/2014 Microscopic hematuria [R31.29] 09/30/2014 Diabetic polyneuropathy associated with type 2 *05/03/2017 Acute pain of right shoulder [M25.511] 05/03/2017 04/02/2019 Nausea [R11.0] 11/15/2017 Vomiting [R11.10] 11/15/2017 Moderate episode of recurrent major depressive *11/26/2017 Stage 3a chronic kidney disease (HCC) [N18.31] 11/26/2017 Right leg weakness [R29.898] 06/14/2018 Gait instability [R26.81] 06/14/2018 CKD (chronic kidney disease) requiring chronic *12/16/2018 11/23/2022 [place] (more content not included)... Normal [facility] CBC panel Auto (Bld)on 01-29 Erythrocyte distribution width (RBC) [Ratio] 11.9 % Normal 11.5-15.0 [facility] Comment on above: Order Comment: Speci men Type: BLOOD SPECIMEN Ordering Facility: [facility] Address: [address] [place] [address] Performed By: #### 2 4321-2 #### [facility] CLIA [id number] [address] [place] [address] [place] Hematocrit (Bld) [Volume fraction] 38.6 % Low 39.0-51.0 [facility] Comment on above: Order Comment: Speci men Type: BLOOD SPECIMEN Ordering Facility: [facility] Address: [address] [place] [address] Performed By: #### 2 4321-2 #### [facility] CLIA [id number] [address] [place] [address] [place] Hemoglobin (Bld) [Mass/Vol] 13.1 g/dL Normal 13.0-17.0 [facility] Comment on above: Order Comment: Speci men Type: BLOOD SPECIMEN Ordering Facility: [facility] Address: [address] [place] [address] Performed By: #### 2 4321-2 #### [facility] CLIA [id number] [address] [place] [address] [place] MCH (RBC) [Entitic mass] 30.4 pg Normal 26.0-34.0 [facility] Comment on above: Order Comment: Speci men Type: BLOOD SPECIMEN Ordering Facility: [facility] Address: [address] [place] [address] Performed By: #### 2 4321-2 #### [facility] CLIA [id number] [address] [place] [address] [place] MCHC (RBC) [Mass/Vol] 33.9 g/dL Normal 30.5-36.0 [facility] Comment on above: Order Comment: Speci men Type: BLOOD SPECIMEN Ordering Facility: [facility] Address: [address] [place] [address] Performed By: #### 2 4321-2 #### [facility] CLIA [id number] [address] [place] [address] [place] MCV (RBC) [Entitic vol] 89.6 fL Normal 80.0-100.0 [facility] Comment on above: Order Comment: Speci men Type: BLOOD SPECIMEN Ordering Facility: [facility] Address: [address] [place] [address] Performed By: #### 2 4321-2 #### [facility] CLIA [id number] [address] [place] [address] [place] Nucleated RBC (Bld) [#/Vol] 10*3/uL Normal <0.01 [facility] Comment on above: Order Comment: Speci men Type: BLOOD SPECIMEN Ordering Facility: [facility] Address: [address] [place] [address] Performed By: #### 2 4321-2 #### [facility] CLIA [id number] [address] [place] [address] [place] Platelet mean volume (Bld) [Entitic vol] 9.6 fL Normal 9.0-12.7 [facility] Comment on above: Order Comment: Speci men Type: BLOOD SPECIMEN Ordering Facility: [facility] Address: [address] [place] [address] Performed By: #### 2 4321-2 #### [facility] CLIA [id number] [address] [place] [address] [place] Platelets (Bld) [#/Vol] 253 10*3/uL Normal 150-400 [facility] Comment on above: Order Comment: Speci men Type: BLOOD SPECIMEN Ordering Facility: [facility] Address: [address] [place] [address] Performed By: #### 2 4321-2 #### [facility] CLIA [id number] [address] [place] [address] [place] RBC (Bld) [#/Vol] 4.31 10*6/uL Normal 4.20-6.00 [facility] Comment on above: Order Comment: Speci men Type: BLOOD SPECIMEN Ordering Facility: [facility] Address: [address] [place] [address] Performed By: #### 2 4321-2 #### [facility] CLIA [id number] [address] [place] [address] [place] WBC (Bld) [#/Vol] 5.28 10*3/uL Normal 3.70-11.00 [facility] Comment on above: Order Comment: Speci men Type: BLOOD SPECIMEN Ordering Facility: [facility] Address: [address] [place] [address] Performed By: #### 2 4321-2 #### [facility] CLIA [id number] [address] [place] [address] OF [place] CNDSon 01-29-2025 DS HNO ID: [id number] Author: SHANA CANTOR MD Service: General Internal Medicine Author Type: Resident Type: Discharge Summary Filed: 01/31/2025 08:59 Note Text: Attestation signed by Shana Cantor MD at 01/31/2025 8:59 AM Hospital Medicine Staff Discharge Attestation: The patient was seen and examined by me on the day of discharge. The above discharge summary has been reviewed and edited to reflect my clinical evaluation. I personally spent greater than 30 minutes on this discharge in the coordination of care, medication reconciliation, and patient counseling. SIGNATURE: Shana Cantor MD, MRCP ([facility]), [facility]: [phone] DATE of SERVICE: January 31, 2025 TIME of SERVICE: 8:58 AM DISCHARGE SUMMARY PATIENT NAME: Italo Burgos ADMISSION DATE: 01/27/2025 DISCHARGE DATE: 01/29/2025 ATTENDING PHYSICIAN: Jeannette att. providers found Code Status: Prior PCP: Zaida Gaston MD Highest Readmission Risk Score: 12 The 30 day readmissions risk score is derived from an internally validated risk model which evaluates patient level characteristics, utilization history, medication orders and lab results up until the day of discharge. Patients with a score of 39 or above are considered highest risk for readmission. Specific patient level drivers will be listed at the bottom of the summary. TRANSITIONS OF CARE CRITICAL ISSUES: DE ANDA MEDICATION CHANGES: Changes in how you take these medications: carvedilol 12.5 mg tablet (Coreg) ? Changed strength and dose (now take 12.5 mg twice a day). tacrolimus IR 1 mg capsule (Prograf) ? Changed dose, timing, and instructions Now take 1 capsule at 6am and 1 capsule at 6pm starting January 30, 2025. Medications to stop: losartan 25 mg tablet -- FU with PCP/Nephro Future Appointments Date Time Provider Department Center 02/11/2025 10:00 AM Clinic, [facility] Main - Q Bld Follow Up Orders Not Yet Scheduled Follow Up Appointment - Endocrine; 1 week ONCE Comments: post discharge follow up for DKA Follow Up Appointment - PCP/Primary Care; 1 week ONCE Comments: Post-hospitalization Follow Up Appointment - Nephrology; 1 week ONCE Comments: Post-obstructive ILDA Follow Up Appointment - Urology; less than 2 weeks; [facility] [place] Provider; NELI WESLEY ONCE Comments: Kidney transplant with obstructive mid ureter 1 cm stone REASON FOR HOSPITALIZATION/FINAL DIAGNOSIS: Post-obstructive ILDA HOSPITAL PROBLEMS: Active Hospital Problems Diagnosis POA Encounter for monitoring tacrolimus therapy Unknown Immunosuppressive management encounter following kidney transplant (HCC) Unknown Nephrolithiasis Unknown Resolved Hospital Problems Diagnosis POA ILDA (acute kidney injury) Yes Hyponatremia Unknown Metabolic acidosis Unknown Complication of transplanted kidney (HCC) Unknown Hydronephrosis Unknown HOSPITAL COURSE: 54-year-old male with a history of ESRD s/p donor renal transplant in March 2021, type 2 diabetes mellitus, hypertension, and recurrent nephrolithiasis, who was admitted with oliguric acute kidney injury and flank pain. Outside hospital evaluation revealed creatinine of 10.5 mg/dL (baseline ~1.4-1.6) and CT evidence of a 1 cm obstructing ureteral stone in the transplanted kidney with associated hydroureteronephrosis. He was transferred to [facility] for higher-level management and underwent successful percutaneous nephrostomy placement on 01/27. Immunosuppression (tacrolimus, prednisone) was continued; mycophenolate was held due to infection risk. Throughout hospitalization, the patient showed clinical improvement. His urine output increased significantly (4.2 L/day), creatinine steadily declined to 3.04, and flank pain resolved. Tacrolimus dosing was adjusted in response to supratherapeutic levels. He remained hemodynamically stable and afebrile. Hyponatremia improved with fluid restriction and careful replacement. Hyperglycemia was managed with insulin lispro and glargine, and the patient remained off DKA trajectory. His home CPAP was continued for LUANNE, and mild anemia was monitored expectantly. By 01/29, the patient remained clinically well, with stable vital signs, improving labs, and good urine output via the nephrostomy. Immunosuppression was resumed with MMF after no UTI was confirmed on culture. He was maintained on prophylactic Bactrim. No signs of volume overload or need for dialysis were identified. He is expected to continue recovering with outpatient transplant nephrology and urology follow-up, along with close monitoring of renal function and immunosuppression levels. #Oligouric ILDA #CKD of transplanted DDRT 03/2021 #Hyponatremia #Hyperphosphatemia Likely post-renal ISO hydroureteronephrosis on (more content not included)... Normal [facility] CONSULT PROGon 01-29-2025 CONSULT PROG HNO ID: [id number] Author: LASHAE WILLIS APRN.CNP Service: Nephrology Author Type: Nurse Practitioner Type: Consult Progress Note Filed: 01/29/2025 14:04 Note Text: Department of Kidney Medicine Medical Specialties [place] NEPHROLOGY TRANSPLANT CONSULT SERVICE PROGRESS NOTE INTERVAL HISTORY: -Seen at the bedside this am sitting on the edge of the bed eating -Patient states he's doing better today -Denies CP, SOB, N/V, headache, dizziness, hypervolemia and constipation -Complaints of ongoing diarrhea -States his appetite is improving -Received IVF yesterday -Renal function improving -UC with no growth -Supratherapeutic Tac level improving today, tac dose held last night and this am -Admission weight: 88.2 kg (194 lb 7.1 oz) -Last recorded weight: 83 kg (182 lb 15.7 oz) -Yesterday's: UOP 4275 ml, net +1010 ml CONTINUOUS INFUSIONS: MEDICATIONS: Current Facility-Administered Medications Medication Dose Route Frequency acetaminophen 1,000 mg tab(s) (TYLENOL) 1,000 mg ORAL/FEEDING TUBE q 6 H PRN NaCl 0.9% iv flush bag 20 mL INTRAVENOUS PRN buPROPion XL 300 mg tab(s) (WELLBUTRIN XL) 300 mg ORAL DAILY buPROPion 75 mg tab(s) (WELLBUTRIN) 75 mg ORAL DAILY FLUoxetine 10 mg cap(s) (PROzac) 10 mg ORAL DAILY predniSONE 5 mg tab(s) (DELTASONE) 5 mg ORAL DAILY sulfamethoxazole-trimet hoprim 400-80 mg 1 tablet (BACTRIM) 1 tablet ORAL - pantoprazole DR 20 mg tab(s) (PROTONIX) 20 mg ORAL DAILY [Order Held by LIP] tacrolimus IR 1 mg cap(s) (PROGRAF) 1 mg ORAL DAILY AT 6 PM cefTRIAXone iv piggyback 1 g in dextrose (iso-osmotic) 50 mL (ROCEPHIN) 1 g INTRAVENOUS q 24 H dextrose 15 gram/32 mL 15 g (TRUEPLUS) 15 g ORAL PRN Or glucagon 1 mg injection 1 mg INTRAMUSCULAR PRN Or dextrose 10% iv bolus 12.5 g INTRAVENOUS PRN insulin lispro injection (rapid acting) (ADMElog) SUBCUTANEOUS w MEALS mycophenolate sodium DR 360 mg tab(s) (MYFORTIC) 360 mg ORAL q 12 H 6a/6p insulin glargine 10 Units pen (long acting) 10 Units SUBCUTANEOUS DAILY (8 AM) insulin lispro 10 Units injection (rapid acting) (ADMElog) 10 Units SUBCUTANEOUS ONCE [Order Held by LIP] tacrolimus IR 1 mg cap(s) (PROGRAF) 1 mg ORAL DAILY (6 AM) ALLERGIES: Patient has no known allergies. VITAL SIGNS: BP 147/81 Pulse 93 Temp 37.2 ?C (99 ?F) (Oral) Resp 16 Ht 172.7 cm (5' 7.99) Wt 83 kg (182 lb 15.7 oz) SpO2 94% BMI 27.83 kg/m? PHYSICAL EXAM: GENERAL: Alert and Awake, in no acute distress SKIN: Warm and dry HEENT: Normocephalic, Atraumatic LUNGS: Normal respiratory effort on room air CARDIAC: RRR ABDOMEN: Soft, rounder, non-tender, non-distended. GENITOURINARY: Rt neph tube with slightly lynn color output EXTREMITIES: trace BLE edema, no joint swelling NEURO: Alert and awake, speech clear, muscle strength grossly intact Labs: Recent Labs 01/29/2553101/28/25173601/28/25 0501/27/25 1626 01/27/25 0549 WBC 5.28 -- 6.53 -- 9.72 HB 13.1 -- 13.2 -- 11.9* HCT 38.6* -- 37.8* -- 33.5* PLT 253 -- 206 -- 167 INR -- -- -- -- 1.0 APTT -- -- -- -- 27.0 NA 139 132* 134* < > 126* K 4.6 4.8 4.6 < > 4.8 CHLOR 107 103 104 < > 94* CO2 22 18* 16* < > 16* ANION 10 11 14 < > 16* BUN 38* 51* 65* < > 83* CREAT 1.98* 3.04* 4.96* < > 9.90* GLUC 248* 362* 230* < > 145* CA 8.9 8.8 8.7 < > 8.1* MG -- -- -- -- 1.8 P 2.2* 2.6* 3.9 -- 5.5* < > = values in this interval not displayed. Recent Labs 01/29/25 0532 01/28/25173601/28/25 0501/27/25 0549 TPROT -- -- -- 5.0* ALB 2.9* 3.0* 2.5* 2.6* ALT -- -- -- 11 AST -- -- -- 13* ALKPHOS -- -- -- 100 TBILI -- -- -- 0.5 ASSESSMENT: 54 year old male with PMHx significant for DM, HTN, LUTS,ESRD S/P Renal transplant 03/2021, CKD 3, retinopathy, blind left eye, RLE weakness, depression, GERD, HLD, UTI, NE, DKA, CAD, renal calculi, hematuria, LUANNE, cholecystectomy, necrotizing fascitis, osteomyelitis s/p amputation of fifth toe, appt non-adherence, who presented to OSH with complaints of hyperglycemia and dizziness. Per patient he woke up from a nap with dizziness, checked his BS >500. Additionally, he had been experiencing abd/flank pain intermittently x5 days. He denies any N/V/D, fever, chills or changes in UOP. Labs on presentation significant for ILDA BUN/Cr 90/10.50, hyponatremia, and acidosis. CT AP obtained showing Right pelvic transplanted kidney transplanted right kidney ureter 10 mm calculus with severe upstream hydroureteronephrosis. Transplant kidney perinephric stranding which may represent back pressure. On presentation his BP with slightly hypotensive with SBP 80s. Patient was transferred to F for further management. Upon arrival to [facility] urology was consulted and now s/p Rt nephrostomy tube placement. Nephrology was consulted for ILDA and history of renal transplant. 1. ESRD S/P Renal transplant 03/09/2021 now with Oliguric ILDA on CKD 3a -Etiology: Likely obstructive -Baseline Cr ap (more content not included)... Normal [facility] Renal function 2000 panelon 01-29-2025 Albumin [Mass/Vol] 2.9 g/dL Low 3.9-4.9 [facility] Comment on above: Order Comment: Speci men Type: BLOOD SPECIMEN Ordering Facility: [facility] Address: [address] [place] [address] Performed By: #### 2 4362-6 #### [facility] CLIA [id number] [address] [place] [address] [id number], [place] [address] [place] Anion gap [Moles/Vol] 10 mmol/L Normal 8-15 [facility] Comment on above: Order Comment: Speci men Type: BLOOD SPECIMEN Ordering Facility: [facility] Address: [address] [place] [address] Performed By: #### 2 4362-6 #### [facility] CLIA [id number] [address] [place], [place] [address] [place] Calcium [Mass/Vol] 8.9 mg/dL Normal 8.5-10.2 [facility] Comment on above: Order Comment: Speci men Type: BLOOD SPECIMEN Ordering Facility: [facility] Address: [address] [place] [address] Performed By: #### 2 4362-6 #### [facility] CLIA [id number] [address] [place], [place] [address] [place] Chloride [Moles/Vol] 107 mmol/L Normal 98-107 [facility] Comment on above: Order Comment: Speci men Type: BLOOD SPECIMEN Ordering Facility: [facility] Address: [address] [place], [place] [address] Performed By: #### 2 4362-6 #### [facility] CLIA [id number] [address] [place], [place] [address] [place] CO2 [Moles/Vol] 22 mmol/L Normal 22-30 [facility] Comment on above: Order Comment: Speci men Type: BLOOD SPECIMEN Ordering Facility: [facility] Address: [address] [place] [address] Performed By: #### 2 4362-6 #### [facility] CLIA [id number] [address] [place], [place] [address] [place] Creatinine [Mass/Vol] 1.98 mg/dL High 0.73-1.22 [facility] Comment on above: Order Comment: Speci men Type: BLOOD SPECIMEN Ordering Facility: [facility] Address: [address] [place] [address] Performed By: #### 2 4362-6 #### [facility] CLIA [id number] [address] [place] [address] [place] Creatinine and Glomerular filtration rate.predicted panel (S/P/Bld) 39 mL/min/1.73m??? Low >=60 [facility] Comment on above: Order Comment: Gabriel martin Type: BLOOD SPECIMEN Ordering Facility: [facility] Address: [address] [place] [address] Result Comment: Candace mated Glomerular Filtration Rate (eGFR) is calculated using the 2020 CKD-EPI creatinine equation. This equation utilizes serum creatinine, sex, and age as parameters. The creatinine assay has traceable calibration to isotope dilution-mass spectrometry. Refer to KDIGO guidelines for clinical interpretation. In patients with unstable renal function, e.g. those with acute kidney injury, the eGFR may not accurately reflect actual GFR. Performed By: #### 2 4362-6 #### [facility] CLIA [id number] [address] [place] [address] [place] Glucose [Mass/Vol] 248 mg/dL High 74-99 [facility] Comment on above: Order Comment: Gabriel martin Type: BLOOD SPECIMEN Ordering Facility: [facility] Address: [address] [place] [address] Result Comment: The [place] Diabetes Association (ADA) provides guidance for cutoff values for fasting glucose and random glucose. The ADA defines fasting as no caloric intake for at least 8 hours. Fasting plasma glucose results between 100 to 125 [...] Standards of Medical Care in Diabetes 2016, [place] [employer]. Diabetes Care. 2016.39(Suppl 1). Performed By: #### 2 4362-6 #### [facility] CLIA [id number] [address] [place], [place] [address] [place] Phosphate [Mass/Vol] 2.2 mg/dL Low 2.7-4.8 [facility] Comment on above: Order Comment: Speci men Type: BLOOD SPECIMEN Ordering Facility: [facility] Address: [address] [place] [address] Performed By: #### 2 4362-6 #### [facility] CLIA [id number] [address] [place] [address] [place] Potassium [Moles/Vol] 4.6 mmol/L Normal 3.7-5.1 [facility] Comment on above: Order Comment: Speci men Type: BLOOD SPECIMEN Ordering Facility: [facility] Address: [address] [place] [address] Performed By: #### 2 4362-6 #### [facility] CLIA [id number] [address] [place] [address] [place] Sodium [Moles/Vol] 139 mmol/L Normal 136-144 [facility] Comment on above: Order Comment: Speci men Type: BLOOD SPECIMEN Ordering Facility: [facility] Address: [address] [place] [address] Performed By: #### 2 4362-6 #### [facility] CLIA [id number] [address] [place] [address] [place] Urea nitrogen [Mass/Vol] 38 mg/dL High 9-24 [facility] Comment on above: Order Comment: Speci men Type: BLOOD SPECIMEN Ordering Facility: [facility] Address: [address] [place], [place] [address] Performed By: #### 2 4362-6 #### [facility] CLIA [id number] [address] [place], [place] [address] [place] THERAPY NTon 01-29-2025 THERAPY NT HNO ID: [id number] Author: LASHAE VALLE OT/L Service: Occupational Therapy Author Type: Occupational Therapist Type: Therapy (PT/OT/Speech/Resp) Filed: 01/29/2025 11:47 Note Text: Occupational Therapy Evaluation Summary SERVICE DATE: 01/29/2025 SERVICE TIME: 1049 to 1127 ROOM: [place] [address] OT 6 Clicks Score: 22 DISCHARGE RECOMMENDATIONS Home Recommended Discharge Disposition Comments: Safe for d/c back to correction from OT persepctive. May benefit from SNF placement for medical needs as pt has no available support Anticipated Discharge Needs: Physical Assist at Home Physical Assist at Home for: Cleaning, Laundry, Meals, Shopping, Transportation Recommended Discharge Equipment: No equipment needs anticipated ASSESSMENT Response to Therapy Interventions: Good Participation in Activities Pt seen for OT evaluation. Pt pleasant and agreeable to therapy. Overall presenting close to baseline with ADLs and mobility, able to complete transfer to [facility] with SBA-CGA. Primarily limited by baseline visual deficits impacting ability to manage nephrostomy tube. Adapted neph tube bag for low vision with increased size and contrast of text/numbers. Pt reporting improvement with adjustment. Provided pt with information on [facility] for assistance with low vision resources. Pt is currently homeless with no family support available. From a therapy perspective, pt safe to d/c back to homeless correction as pt is functioning at recent baseline. Discussed with team that pt may benefit from SNF placement for medical management if needed. Will also benefit from social work for assistance with transportation/communit y resources. No further acute OT needs at this time, OT will sign off. Please re-consult if new needs arise. PRECAUTIONS Fall Risk CURRENT HOSPITAL COURSE Pt presenting with acute kidney injury secondary to obstructive uropathy, s/p percutaneous neph tube placement on 01/27 Relevant Past Medical History: ESRD s/p donor renal transplant, Type 2 diabetes mellitus, Hypertension, Chronic kidney disease, History of recurrent urinary tract infections and renal calculi HOME LIVING Patient Lives With: Other: See Comment (Homeless correction) Assistance Available: None Entry To Home: No Stairs Equipment Owned: Rollator, Cane PRIOR FUNCTIONAL LEVEL Within Functional Limits Pt reports overall IND with ADLs. Ambulates using rollator, denies falls. Has been staying at homeless correction, reports no family support Baseline Cognition: Oriented to self, Oriented to place, Oriented to time, Oriented to situation SUBJECTIVE Agreeable to OT COGNITION Responsiveness: Alert, Awake Follows Commands: 2-step Commands Cog 6 Start of Session Total Points (Max Score = 24): 24 (01/29/25) Cog 6 End of Session Total Points (Max Score = 24): 24 (01/29/25) Confusion Assessment Method (CAM - ICU Score): Negative (01/27/25) 4AT Score: 0 (01/29/25) Delirium Positive/Negative: Negative (01/29/25) THERAPY DIAGNOSIS No Skilled Need TREATMENT INTERVENTIONS Evaluation, Self Nursing Home Management ([id number]) Timed Code Treatment (minutes): 23 Skilled Treatment Time (minutes): 38 TRAINING AND EDUCATION PROVIDED Activity Adaptation/Compensatory Strategies, Bed Mobility, Benefits of In-Hospital Mobility, Discharge Planning, Functional Mobility Involving ADLs, Low Vision Strategies, Home Set-up/Modifications, IADLs/Home Management, Identification of Systems of Support, Insight into Deficits, Life Roles/Routines/Habits, Role of Occupational Therapy, Standing Balance to Improve [place] with ADLs/Self-Care, Transfer - Sit to Stand, Transfer - Toilet/Commode, Sitting Balance to Improve [place] with ADLs/Self-Care THERAPEUTIC SKILLS USED Activity Dosing, Cues for Sequencing/Proper Technique for Activity, Cuing Verbal, Cuing Visual, Therapeutic Use of Self, Task Analysis Learning, Teach-Back for Education, Physical Assist, Management of Critical Lines, Tubes and/or Drains FUNCTIONAL STATUS Activities of Daily Living Assist Level Additional Information Feeding Set Up Grooming Set Up Bathing Upper Body Stand By Assistance Bathing Lower Body Contact Guard Assistance Dressing Upper Body Stand By Assistance Dressing Lower Body Contact Guard Assistance Toileting Stand By Assistance Mobility Assist Level Additional Information Bed Mobility Supine To Sit: Stand By Assistance Sit To Supine: Stand By Assistance Sit to Stand Contact Guard Assistance Stand to Sit Contact Guard Assistance Bed to Chair Toilet/Commode Contact Guard Assistance Shower Functional Mobility GOALS Patient will demonstrate progress with self-care, cognitive and/or coping needs identified to allow safe discharge to home with available support and/or physical assistance. Rehab Potential: Good Good Rehab Potential Due To: Current objective clinical presentation, Good overall health stat (more content not included)... Normal [facility] Tacrolimus Bld-mCncon 2024 Tacrolimus (Bld) [Mass/Vol] 10.7 ng/mL Normal 5.0-20.0 [facility] Comment on above: Order Comment: Speci men Type: BLOOD SPECIMEN Ordering Facility: [facility] Address: [address] [place] [address] Result Comment: Eileen vidualized target levels for a given patient will depend on many factors (including the type of organ transplant, time since transplantation, concurrent medications, and other clinical factors), and should be assessed by those health care providers experienced in the management of immunosuppression. Reference ranges and high/low indicator flags are provided as general guidelines only. The treating physician must determine appropriate target levels/dosing based on the specific clinical situation. Test performed by chemiluminescent immunoassay using [employer] Alinity i. Performed By: #### 1 1253-2 #### [facility] CLIA [id number] [address] [place] [address] [place] CBC panel Auto (Bld)on 01-28 Erythrocyte distribution width (RBC) [Ratio] 11.9 % Normal 11.5-15.0 [facility] Comment on above: Order Comment: Gabriel martin Type: BLOOD SPECIMEN Ordering Facility: [facility] Address: [address] [place] [address] Performed By: #### 2 4321-2 #### [facility] CLIA [id number] [address] [place] [address] [place] Hematocrit (Bld) [Volume fraction] 37.8 % Low 39.0-51.0 [facility] Comment on above: Order Comment: Gabriel martin Type: BLOOD SPECIMEN Ordering Facility: [facility] Address: [address] [place] [address] Performed By: #### 2 4321-2 #### [facility] CLIA [id number] [address] [place] [address] [place] Hemoglobin (Bld) [Mass/Vol] 13.2 g/dL Normal 13.0-17.0 [facility] Comment on above: Order Comment: Gabriel martin Type: BLOOD SPECIMEN Ordering Facility: [facility] Address: [address] [place] [address] Performed By: #### 2 4321-2 #### [facility] CLIA [id number] [address] [place] [address] [place] MCH (RBC) [Entitic mass] 30.9 pg Normal 26.0-34.0 [facility] Comment on above: Order Comment: Speci men Type: BLOOD SPECIMEN Ordering Facility: [facility] Address: [address] [place] [address] Performed By: #### 2 4321-2 #### [facility] CLIA [id number] [address] [place] [address] [place] MCHC (RBC) [Mass/Vol] 34.9 g/dL Normal 30.5-36.0 [facility] Comment on above: Order Comment: Speci men Type: BLOOD SPECIMEN Ordering Facility: [facility] Address: [address] [place] [address] Performed By: #### 2 4321-2 #### [facility] CLIA [id number] [address] [place] [address] [place] MCV (RBC) [Entitic vol] 88.5 fL Normal 80.0-100.0 [facility] Comment on above: Order Comment: Speci men Type: BLOOD SPECIMEN Ordering Facility: [facility] Address: [address] [place] [address] Performed By: #### 2 4321-2 #### [facility] CLIA [id number] [address] [place] [address] [place] Nucleated RBC (Bld) [#/Vol] 10*3/uL Normal <0.01 [facility] Comment on above: Order Comment: Speci men Type: BLOOD SPECIMEN Ordering Facility: [facility] Address: [address] [place] [address] Performed By: #### 2 4321-2 #### [facility] CLIA [id number] [address] [place] [address] [place] Platelet mean volume (Bld) [Entitic vol] 9.7 fL Normal 9.0-12.7 [facility] Comment on above: Order Comment: Speci men Type: BLOOD SPECIMEN Ordering Facility: [facility] Address: [address] [place] [address] Performed By: #### 2 4321-2 #### [facility] CLIA [id number] [address] [place] [address] [place] Platelets (Bld) [#/Vol] 206 10*3/uL Normal 150-400 [facility] Comment on above: Order Comment: Speci men Type: BLOOD SPECIMEN Ordering Facility: [facility] Address: [address] [place] [address] Performed By: #### 2 4321-2 #### [facility] CLIA [id number] [address] [place] [address] [place] RBC (Bld) [#/Vol] 4.27 10*6/uL Normal 4.20-6.00 [facility] Comment on above: Order Comment: Speci men Type: BLOOD SPECIMEN Ordering Facility: [facility] Address: [address] [place] [address] Performed By: #### 2 4321-2 #### [facility] CLIA [id number] [address] [place] [address] [place] WBC (Bld) [#/Vol] 6.53 10*3/uL Normal 3.70-11.00 [facility] Comment on above: Order Comment: Speci men Type: BLOOD SPECIMEN Ordering Facility: [facility] Address: [address] [place] [address] Performed By: #### 2 4321-2 #### [facility] CLIA [id number] [address] [place] [address] [place] CONSULT PROGon 01-28-2025 CONSULT PROG HNO ID: [id number] Author: LASHAE WILLIS APRN.[employer]IST Service: Nephrology Author Type: Nurse Practitioner Type: Consult Progress Note Filed: 01/28/2025 13:26 Note Text: [facility] [place] NEPHROLOGY TRANSPLANT CONSULT SERVICE PROGRESS NOTE INTERVAL HISTORY: -Seen at the bedside this am -Patient states he's doing well today -Denies CP, SOB, N/V, headache, dizziness, hypervolemia and constipation -Complaints of diarrhea -States his appetite is good -Lacking intake documentation -UC in process -Supratherapeutic Tac level today -Admission weight: 88.2 kg (194 lb 7.1 oz) -Last recorded weight: 84.6 kg (186 lb 8.2 oz) -Yesterday's: UOP 4265 ml, net -3712 ml CONTINUOUS INFUSIONS: lactated ringers, Last Rate: 75 mL/hr (01/28/25 0715) MEDICATIONS: Current Facility-Administered Medications Medication Dose Route Frequency acetaminophen 1,000 mg tab(s) (TYLENOL) 1,000 mg ORAL/FEEDING TUBE q 6 H PRN NaCl 0.9% iv flush bag 20 mL INTRAVENOUS PRN tacrolimus IR 2 mg cap(s) (PROGRAF) 2 mg ORAL DAILY (6 AM) buPROPion XL 300 mg tab(s) (WELLBUTRIN XL) 300 mg ORAL DAILY buPROPion 75 mg tab(s) (WELLBUTRIN) 75 mg ORAL DAILY FLUoxetine 10 mg cap(s) (PROzac) 10 mg ORAL DAILY predniSONE 5 mg tab(s) (DELTASONE) 5 mg ORAL DAILY sulfamethoxazole-trimet hoprim 400-80 mg 1 tablet (BACTRIM) [address] 20 mg tab(s) (PROTONIX) 20 mg ORAL DAILY tacrolimus IR 1 mg cap(s) (PROGRAF) 1 mg ORAL DAILY AT 6 PM cefTRIAXone iv piggyback 1 g in dextrose (iso-osmotic) 50 mL (ROCEPHIN) 1 g INTRAVENOUS q 24 H lactated ringers iv infusion 75 mL/hr INTRAVENOUS CONTINUOUS dextrose 15 gram/32 mL 15 g (TRUEPLUS) 15 g ORAL PRN Or glucagon 1 mg injection 1 mg INTRAMUSCULAR PRN Or dextrose 10% iv bolus 12.5 g INTRAVENOUS PRN insulin lispro injection (rapid acting) (ADMElog) SUBCUTANEOUS w MEALS ALLERGIES: Patient has no known allergies. VITAL SIGNS: BP 121/92 Pulse 90 Temp 36.5 ?C (97.7 ?F) (Oral) Resp 16 Ht 172.7 cm (5' 7.99) Wt 84.6 kg (186 lb 8.2 oz) SpO2 97% BMI 28.37 kg/m? PHYSICAL EXAM: GENERAL: Alert and Awake, in no acute distress SKIN: Warm and dry HEENT: Normocephalic, Atraumatic LUNGS: Normal respiratory effort on room air CARDIAC: RRR ABDOMEN: Soft, rounder, non-tender, non-distended. GENITOURINARY: Rt neph tube with bobby color output EXTREMITIES: trace BLE edema, no joint swelling NEURO: Alert and awake, speech clear, muscle strength grossly intact Labs: Recent Labs 01/28/25 0527 01/27/25 1626 01/27/25 0549 WBC 6.53 -- 9.72 HB 13.2 -- 11.9* HCT 37.8* -- 33.5* PLT 206 -- 167 INR -- -- 1.0 APTT -- -- 27.0 NA 134* 129* 126* K 4.6 4.7 4.8 CHLOR 104 99 94* CO2 16* 16* 16* ANION 14 14 16* BUN 65* 82* 83* CREAT 4.96* 7.42* 9.90* GLUC 230* 191* 145* CA 8.7 8.4* 8.1* MG -- -- 1.8 P 3.9 -- 5.5* Recent Labs 01/28/25 0527 01/27/25 0549 TPROT -- 5.0* ALB 2.5* 2.6* ALT -- 11 AST -- 13* ALKPHOS -- 100 TBILI -- 0.5 ASSESSMENT: 54 year old male with PMHx significant for DM, HTN, LUTS,ESRD S/P Renal transplant 03/2021, CKD 3, retinopathy, blind left eye, RLE weakness, depression, GERD, HLD, UTI, NE, DKA, CAD, renal calculi, hematuria, LUANNE, cholecystectomy, necrotizing fascitis, osteomyelitis s/p amputation of fifth toe, appt non-adherence, who presented to OSH with complaints of hyperglycemia and dizziness. Per patient he woke up from a nap with dizziness, checked his BS >500. Additionally, he had been experiencing abd/flank pain intermittently x5 days. He denies any N/V/D, fever, chills or changes in UOP. Labs on presentation significant for ILDA BUN/Cr 90/10.50, hyponatremia, and acidosis. CT AP obtained showing Right pelvic transplanted kidney transplanted right kidney ureter 10 mm calculus with severe upstream hydroureteronephrosis. Transplant kidney perinephric stranding which may represent back pressure. On presentation his BP with slightly hypotensive with SBP 80s. Patient was transferred to [facility] for further management. Upon arrival to [facility] urology was consulted and now s/p Rt nephrostomy tube placement. Nephrology was consulted for ILDA and history of renal transplant. 1. ESRD S/P Renal transplant 03/09/2021 now with Oliguric ILDA on CKD 3a -Etiology: Likely obstructive -Baseline Cr appears 1.4-1.6 though ~1 year since last set of labs, though it appears he had a Cr 2.11 11/19/24 -Cr on presentation 10.50 now down trending to 4.96 -UA 01/26:+ Protein, +Glucose, +Heme, +leuks, +RBCs -Repeat UA 01/27: 3+ Protein, 2+Bili, 3+Heme, 2+ Leuks, +Nitrites, +RBCs -Renal imaging CT AP 01/26/25: Severely atrophic [place] kidneys. Right pelvic transplanted kidney transplanted right kidney ureter 10 mm calculus with severe upstream hydroureteronephrosis. Transplant kidney perinephric stranding which may represent back pressure. Bladder: Markedly concentrically thi (more content not included)... Normal [facility] CONSULT PROG HNO ID: [id number] Author: JORDYN ROBB MD Service: Urology Author Type: Resident Type: Consult Progress Note Filed: 01/28/2025 06:54 Note Text: UROLOGY CONSULT PROGRESS NOTE Name: Italo Burgos Bed: G080 013/G080-13 ASSESSMENT AND PLAN Italo Burgos is a 54 year old male with a history of HTN, CHF, nephrolithiasis, ESRD s/p DDKT 03/09/21, who presents as transfer to MICU with ILDA, hydronephrosis of transplant kidney 2/2 to 1cm obstructing stone Now s/p IR KT nephrostomy tube placement with IR 01/27 INTERVAL/SUBJECTIVE: -Doing well overall - Feels better, pain improved - AVSS - Urine Cx pending - Cr 4.96 (7.42<9.90, Baseline ~ 1) Plan: -Keep NT to gravity drainage - Trend Cr, watch for post obstructive diuresis - Outpatient follow up with stone specialist requested for definitive stone treatment - Follow up urine cx - Urology will sign off Jordyn Cates MD Urology PGY3 [facility] [place] After 5pm or weekends: [id number] Will discuss plan with staff OBJECTIVE Vital Signs BP 107/68 Pulse 87 Temp 36.6 ?C (97.9 ?F) (Oral) Resp 16 Ht 172.7 cm (5' 7.99) Wt 88.2 kg (194 lb 7.1 oz) SpO2 94% BMI 29.57 kg/m? Input and Output Intake/Output Summary (Last 24 hours) at 01/28/2025 0647 Last data filed at 01/28/2025 0541 Gross per 24 hour Intake 553 ml Output 4265 ml Net -3712 ml PHYSICAL EXAM General: Alert, NAD GI: Abd soft, nondistended, non tender, Right KT NT draining CYU Labs: Reviewed Imaging Reviewed Normal [facility] NURSING PROGon 01-28-2025 NURSING PROG HNO ID: [id number] Author: CHARAN TRINIDAD, RN Service: Nursing Author Type: Registered Nurse Type: Nursing Progress Note Filed: 01/28/2025 12:56 Note Text: Other: patient needed a lot of prompting on how to drain neph tube. He did not measure correctly and was not able to add the volume to determine how much fluid he should take in. I told him 1000 ml out from bag and asked him how much more he needs to take in. He said, more. Told him doctor told him to take in 500 ml more than output. Again asked how much he should be taking in, he said, 500. I explained it should be 1000 plus 500. Normal [facility] Renal function 2000 panelon 01-28-2025 Albumin [Mass/Vol] 3.0 g/dL Low 3.9-4.9 [facility] Comment on above: Order Comment: Speci men Type: BLOOD SPECIMEN Ordering Facility: [facility] Address: [address] [place] [address] Performed By: #### 1 1253-2 #### [facility] CLIA [id number] [address] [place] [address] [place] Anion gap [Moles/Vol] 11 mmol/L Normal 8-15 [facility] Comment on above: Order Comment: Speci men Type: BLOOD SPECIMEN Ordering Facility: [facility] Address: [address] [place] [address] Performed By: #### 1 1253-2 #### [facility] CLIA [id number] [address] [place] [address] [place] Calcium [Mass/Vol] 8.8 mg/dL Normal 8.5-10.2 [facility] Comment on above: Order Comment: Speci men Type: BLOOD SPECIMEN Ordering Facility: [facility] Address: [address] [place] [address] Performed By: #### 1 1253-2 #### [facility] CLIA [id number] [address] [place] [address] [place] Chloride [Moles/Vol] 103 mmol/L Normal 98-107 [facility] Comment on above: Order Comment: Speci men Type: BLOOD SPECIMEN Ordering Facility: [facility] Address: [address] [place] [address] Performed By: #### 1 1253-2 #### [facility] CLIA [id number] [address] [place], [place] [id number] [place] CO2 [Moles/Vol] 18 mmol/L Low 22-30 [facility] Comment on above: Order Comment: Speci men Type: BLOOD SPECIMEN Ordering Facility: [facility] Address: [address] [place], [place] [address] Performed By: #### 1 1253-2 #### [facility] CLIA [id number] [address] [place], [place] [address] [place] Creatinine [Mass/Vol] 3.04 mg/dL High 0.73-1.22 [facility] Comment on above: Order Comment: Gabreil martin Type: BLOOD SPECIMEN Ordering Facility: [facility] Address: [address] [place] [address] Performed By: #### 1 1253-2 #### [facility] CLIA [id number] [address] [place] [address] [place] Creatinine and Glomerular filtration rate.predicted panel (S/P/Bld) 23 mL/min/1.73m??? Low >=60 [facility] Comment on above: Order Comment: Gabriel martin Type: BLOOD SPECIMEN Ordering Facility: [facility] Address: [address] [place] [address] Result Comment: Candace mated Glomerular Filtration Rate (eGFR) is calculated using the 2020 CKD-EPI creatinine equation. This equation utilizes serum creatinine, sex, and age as parameters. The creatinine assay has traceable calibration to isotope dilution-mass spectrometry. Refer to KDIGO guidelines for clinical interpretation. In patients with unstable renal function, e.g. those with acute kidney injury, the eGFR may not accurately reflect actual GFR. Performed By: #### 1 1253-2 #### [facility] CLIA [id number] [address] [place] [address] [place] Glucose [Mass/Vol] 362 mg/dL High 74-99 [facility] Comment on above: Order Comment: Gabriel martin Type: BLOOD SPECIMEN Ordering Facility: [facility] Address: [address] [place] [address] Result Comment: The [place] Diabetes Association (ADA) provides guidance for cutoff values for fasting glucose and random glucose. The ADA defines fasting as no caloric intake for at least 8 hours. Fasting plasma glucose results between 100 to 125 [...] Standards of Medical Care in Diabetes 2016, [place] [employer]. Diabetes Care. 2016.39(Suppl 1). Performed By: #### 1 1253-2 #### [facility] CLIA [id number] [address] [place] [address] [place] Phosphate [Mass/Vol] 2.6 mg/dL Low 2.7-4.8 [facility] Comment on above: Order Comment: Speci men Type: BLOOD SPECIMEN Ordering Facility: [facility] Address: [address] [place] [address] Performed By: #### 1 1253-2 #### [facility] CLIA [id number] [address] [place] [address] [place] Potassium [Moles/Vol] 4.8 mmol/L Normal 3.7-5.1 [facility] Comment on above: Order Comment: Speci men Type: BLOOD SPECIMEN Ordering Facility: [facility] Address: [address] [place] [address] Performed By: #### 1 1253-2 #### [facility] CLIA [id number] [address] [place] [address] [place] Sodium [Moles/Vol] 132 mmol/L Low 136-144 [facility] Comment on above: Order Comment: Speci men Type: BLOOD SPECIMEN Ordering Facility: [facility] Address: [address] [place] [address] Performed By: #### 1 1253-2 #### [facility] CLIA [id number] [address] [place] [address] [place] Urea nitrogen [Mass/Vol] 51 mg/dL High 9-24 [facility] Comment on above: Order Comment: Speci men Type: BLOOD SPECIMEN Ordering Facility: [facility] Address: [address] [place] [address] Performed By: #### 1 1253-2 #### [facility] CLIA [id number] [address] [place] [address] [place] Albumin [Mass/Vol] 2.5 g/dL Low 3.9-4.9 [facility] Comment on above: Order Comment: Speci men Type: BLOOD SPECIMEN Ordering Facility: [facility] Address: [address] [place] [address] Performed By: #### 1 1253-2 #### [facility] CLIA [id number] [address] [place] [address] [place] Anion gap [Moles/Vol] 14 mmol/L Normal 8-15 [facility] Comment on above: Order Comment: Speci men Type: BLOOD SPECIMEN Ordering Facility: [facility] Address: [address] [place] [address] Performed By: #### 1 1253-2 #### [facility] CLIA [id number] [address] [place] [address] [place] Calcium [Mass/Vol] 8.7 mg/dL Normal 8.5-10.2 [facility] Comment on above: Order Comment: Speci men Type: BLOOD SPECIMEN Ordering Facility: [facility] Address: [address] [place] [address] Performed By: #### 1 1253-2 #### [facility] CLIA [id number] [address] [place] [address] [place] Chloride [Moles/Vol] 104 mmol/L Normal 98-107 [facility] Comment on above: Order Comment: Speci men Type: BLOOD SPECIMEN Ordering Facility: [facility] Address: [address] [place] [address] Performed By: #### 1 1253-2 #### [facility] CLIA [id number] [address] [place] [address] [place] CO2 [Moles/Vol] 16 mmol/L Low 22-30 [facility] Comment on above: Order Comment: Speci men Type: BLOOD SPECIMEN Ordering Facility: [facility] Address: [address] [place] [address] Performed By: #### 1 1253-2 #### [facility] CLIA [id number] [address] [place] [address] [place] Creatinine [Mass/Vol] 4.96 mg/dL High 0.73-1.22 [facility] Comment on above: Order Comment: Speci men Type: BLOOD SPECIMEN Ordering Facility: [facility] Address: [address] [place] [address] Performed By: #### 1 1253-2 #### [facility] CLIA [id number] [address] [place] [address] [place] Creatinine and Glomerular filtration rate.predicted panel (S/P/Bld) 13 mL/min/1.73m??? Low >=60 [facility] Comment on above: Order Comment: Speci men Type: BLOOD SPECIMEN Ordering Facility: [facility] Address: [address] [place] [address] Result Comment: Candace mated Glomerular Filtration Rate (eGFR) is calculated using the 2020 CKD-EPI creatinine equation. This equation utilizes serum creatinine, sex, and age as parameters. The creatinine assay has traceable calibration to isotope dilution-mass spectrometry. Refer to KDIGO guidelines for clinical interpretation. In patients with unstable renal function, e.g. those with acute kidney injury, the eGFR may not accurately reflect actual GFR. Performed By: #### 1 1253-2 #### [facility] CLIA [id number] [address] [place] [address] [place] Glucose [Mass/Vol] 230 mg/dL High 74-99 [facility] Comment on above: Order Comment: Speci men Type: BLOOD SPECIMEN Ordering Facility: [facility] Address: [address] [place] [address] Result Comment: The [place] Diabetes Association (ADA) provides guidance for cutoff values for fasting glucose and random glucose. The ADA defines fasting as no caloric intake for at least 8 hours. Fasting plasma glucose results between 100 to 125 [...] Standards of Medical Care in Diabetes 2016, [place] [employer]. Diabetes Care. 2016.39(Suppl 1). Performed By: #### 1 1253-2 #### [facility] CLIA [id number] [address] [place] [address] [place] Phosphate [Mass/Vol] 3.9 mg/dL Normal 2.7-4.8 [facility] Comment on above: Order Comment: Speci men Type: BLOOD SPECIMEN Ordering Facility: [facility] Address: [address] [place] [address] Performed By: #### 1 1253-2 #### [facility] CLIA [id number] [address] [place] [address] [place] Potassium [Moles/Vol] 4.6 mmol/L Normal 3.7-5.1 [facility] Comment on above: Order Comment: Mii men Type: BLOOD SPECIMEN Ordering Facility: [facility] Address: [address] [place] [address] Performed By: #### 1 1253-2 #### [facility] CLIA [id number] [address] [place] [address] [place] Sodium [Moles/Vol] 134 mmol/L Low 136-144 [facility] Comment on above: Order Comment: Speci men Type: BLOOD SPECIMEN Ordering Facility: [facility] Address: [address] [place] [address] Performed By: #### 1 1253-2 #### [facility] CLIA [id number] [address] [place] [address] [place] Urea nitrogen [Mass/Vol] 65 mg/dL High 9-24 [facility] Comment on above: Order Comment: Gabriel martin Type: BLOOD SPECIMEN Ordering Facility: [facility] Address: [address] [place] [address] Performed By: #### 1 1253-2 #### [facility] CLIA [id number] [address] [place] [address] [place] THERAPY NTon 01-28-2025 THERAPY NT HNO ID: [id number] Author: RICK JACOBS OT/Jose Luis Service: Occupational Therapy Author Type: Occupational Therapist Type: Therapy (PT/OT/Speech/Resp) Filed: 01/28/2025 13:22 Note Text: OCCUPATIONAL THERAPY MISSED VISIT SERVICE DATE: 01/28/2025 SERVICE TIME: 1310 ROOM: [place] [address] Patient not seen due to (Pt with actice d/c summary in chart). SIGNATURE: DINAH Waldron PATIENT NAME: Italo Burgos DATE: January 28, 2025 TIME: 1:22 PM Normal [facility] Tacrolimus Bld-mCncon 2024 Tacrolimus (Bld) [Mass/Vol] 17.3 ng/mL Normal 5.0-20.0 [facility] Comment on above: Order Comment: Gabriel martin Type: BLOOD SPECIMEN Ordering Facility: [facility] Address: [address] [place] [address] Result Comment: Eileen vidualized target levels for a given patient will depend on many factors (including the type of organ transplant, time since transplantation, concurrent medications, and other clinical factors), and should be assessed by those health care providers experienced in the management of immunosuppression. Reference ranges and high/low indicator flags are provided as general guidelines only. The treating physician must determine appropriate target levels/dosing based on the specific clinical situation. Test performed by chemiluminescent immunoassay using [employer] i. Performed By: #### 2 4321-2 #### [facility] CLIA [id number] [address] [place] [address] [place] Anion gap in Serum or Plasma Ordered By: Yony Solis on 01-27-2025 Anion gap [Moles/Vol] 16 mmol/L High 5-15 [facility] BRIEF OP NOTon 01-27-2025 BRIEF OP NOT HNO ID: [id number] Author: ALTAF DE JESUS MD Service: Interventional Radiology Author Type: Resident Type: Brief Op Note Filed: 01/27/2025 08:56 Note Text: BRIEF OPERATIVE / PROCEDURE NOTE LOG ID: [id number] SURGERY/PROCEDURE DATE: 01/27/2025 INCISION/PROCEDURE START TIME: 8:35 AM INCISION CLOSE/PROCEDURE END TIME: SURGEON(S)/PROCEDURALIS T(S) AND FIGURE CLERK(S): Surgeons and Role: * Tenzin Daniel MD - Primary * Alatf De Jesus MD - Fellow No Additional Staff SURGERY/PROCEDURE(S): Transplant kidney nephrostomy tube placement ANESTHESIA: Procedural Sedation FINDINGS: Severe hydronephrosis due to obstructing nephroureterolithiasis. Successful neph tube placement 10F ESTIMATED BLOOD LOSS: 0 ml SPECIMENS: urine sent for culture COMPLICATIONS: None CLOSURE TECHNIQUE: Primary PRE-OP/PRE-PROCEDURE DIAGNOSIS: obstructive uropathy POST-OP/POST-PROCEDURE DIAGNOSIS: Same as Preop SIGNATURE: Altaf De Jesus MD PATIENT NAME: Italo Burgos DATE: January 27, 2025 TIME: 8:55 AM Normal [facility] BUN/creatinine ratioOrdered By: Yony Solis on 01-27-2025 Urea nitrogen/Creatinine [Mass ratio] 8.5 mg/mg Low 06-28 [facility] Bacteria Ur Culton Bacteria identified Cx Nom (U) CULTURE, URINE: No growth (<100 CFU/ml) Normal [facility] Comment on above: Performed By: #### 6 30-4 ####[facility] [id number] [place] [id number] [place] Basic Metabolic Profile (BMP )on 01-27-2025 BUN/CRE 8.5 RATIO Low 06-28 [facility] Comment on above: Performed By: #### L 500.2500 #### [facility] [address] [place], [address] Calcium [Mass/Vol] 8.2 mg/dL Normal 7.6-11.0 [facility] Comment on above: Performed By: #### L 500.2500 #### [facility] [address] [place], [address] Chloride [Moles/Vol] 94 mmol/L Low 98-108 [facility] Comment on above: Performed By: #### L 500.2500 #### [facility] [address] [place], [address] CO2 [Moles/Vol] 16.7 mmol/L Low 21.0-32.0 [facility] Comment on above: Performed By: #### L 500.2500 #### [facility] [address] [place], [address] Creatinine [Mass/Vol] 10.50 mg/dL Invalid Interpretation Code 0.70-1.20 [facility] Comment on above: Result Comment: Crit ical Result(s) Called at: 0222 by:??RUDY HAVEN TO NATE RAPPR Results read back by same. Performed By: #### L 500.2500 #### [facility] [address] [place], [address] ECRCL 8.41 ml/min Invalid Interpretation Code 50-250 [facility] Comment on above: Performed By: #### L 500.2500 #### [facility] [address] [place], [address] GAP 16 High 5-15 [facility] Comment on above: Performed By: #### L 500.2500 #### [facility] [address] [place], [address] GFR/1.73 sq M.predicted among non-blacks MDRD (S/P/Bld) [Vol rate/Area] 5 mL/min/{1.73_m2} Low >60 [facility] Comment on above: Result Comment: mL/m in/1.73m2 CKD-EPI Creatinine Equation (2020) Performed By: #### L 500.2500 #### [facility] [address] [place], [address] Glucose [Mass/Vol] 116 mg/dL High 70-99 [facility] Comment on above: Performed By: #### L 500.2500 #### [facility] [address] [place], [address] Potassium [Moles/Vol] 4.6 mmol/L Normal 3.3-5.1 [facility] Comment on above: Performed By: #### L 500.2500 #### [facility] [address] [place], [address] Sodium [Moles/Vol] 126 mmol/L Low 133-145 [facility] Comment on above: Performed By: #### L 500.2500 #### [facility] [address] [place], [address] Urea nitrogen [Mass/Vol] 90 mg/dL High 4-19 [facility] Comment on above: Performed By: #### L 500.2500 #### [facility] [address] [place], [address] BUN Normal 4-19 [facility] Comment on above: Result Comment: QUES TIONABLE RESULTS. REORDERED Performed By: #### L 500.2500, L100.0100 #### [facility] [address] [place], [address] BUN/CRE Normal 10-20 [facility] Comment on above: Result Comment: QUES TIONABLE RESULTS. REORDERED Performed By: #### L 500.2500, L100.0100 #### [facility] [address] [place], [address] Calcium Normal 7.6-11.0 [facility] Comment on above: Result Comment: QUES TIONABLE RESULTS. REORDERED Performed By: #### L 500.2500, L100.0100 #### [facility] [address] [place], [address] CL Normal 98-108 [facility] Comment on above: Result Comment: QUES TIONABLE RESULTS. REORDERED Performed By: #### L 500.2500, L100.0100 #### [facility] [address] [place], [address] CO2 Normal 21.0-32.0 [facility] Comment on above: Result Comment: QUES TIONABLE RESULTS. REORDERED Performed By: #### L 500.2500, L100.0100 #### [facility] [address] [place], [address] CREAT,SERUM Normal 0.70-1.20 [facility] Comment on above: Result Comment: QUES TIONABLE RESULTS. REORDERED Performed By: #### L 500.2500, L100.0100 #### [facility] [address] [place], [address] eGFR Normal >60 [facility] Comment on above: Result Comment: QUES TIONABLE RESULTS. REORDERED Performed By: #### L 500.2500, L100.0100 #### [facility] [address] [place], [address] GAP Normal 5-15 [facility] Comment on above: Result Comment: QUES TIONABLE RESULTS. REORDERED Performed By: #### L 500.2500, L100.0100 #### [facility] [address] [place], [address] GLU Normal 70-99 [facility] Comment on above: Result Comment: QUES TIONABLE RESULTS. REORDERED Performed By: #### L 500.2500, L100.0100 #### [facility] [address] [place], [address] Potassium Normal 3.3-5.1 [facility] Comment on above: Result Comment: QUES TIONABLE RESULTS. REORDERED Performed By: #### L 500.2500, L100.0100 #### [facility] [address] [place], [address] Basic Metabolic Profile (BMP) Normal 133-145 [facility] Comment on above: Result Comment: QUES TIONABLE RESULTS. REORDERED Performed By: #### L 500.2500, L100.0100 #### [facility] [address] [place], [address] Basic metabolic 2000 panelon 01-27-2025 Anion gap [Moles/Vol] 14 mmol/L Normal 8-15 [facility] Comment on above: Order Comment: Speci men Type: BLOOD SPECIMEN Ordering Facility: [facility] Address: [address] [place] [address] Performed By: #### 2 4321-2 #### [facility] CLIA [id number] [address] [place] [address] [place] Calcium [Mass/Vol] 8.4 mg/dL Low 8.5-10.2 [facility] Comment on above: Order Comment: Speci men Type: BLOOD SPECIMEN Ordering Facility: [facility] Address: [address] [place] [address] Performed By: #### 2 4321-2 #### [facility] CLIA [id number] [address] [place], [place] [address] [place] Chloride [Moles/Vol] 99 mmol/L Normal 98-107 [facility] Comment on above: Order Comment: Speci men Type: BLOOD SPECIMEN Ordering Facility: [facility] Address: [address] [place] [id number] Performed By: #### 2 4321-2 #### [facility] CLIA [id number] [address] [place] [address] [place] CO2 [Moles/Vol] 16 mmol/L Low 22-30 [facility] Comment on above: Order Comment: Mii mario Type: BLOOD SPECIMEN Ordering Facility: [facility] Address: [address] [place] [address] Performed By: #### 2 4321-2 #### [facility] [place] [id number] [address] [place] [address] [place] Creatinine [Mass/Vol] 7.42 mg/dL High 0.73-1.22 [facility] Comment on above: Order Comment: Mii men Type: BLOOD SPECIMEN Ordering Facility: [facility] Address: [address] [place] [address] Performed By: #### 2 4321-2 #### [facility] [place] [id number] [address] [place] [address] [place] Creatinine and Glomerular filtration rate.predicted panel (S/P/Bld) 8 mL/min/1.73m??? Low >=60 [facility] Comment on above: Order Comment: Mii men Type: BLOOD SPECIMEN Ordering Facility: [facility] Address: [address] [place] [address] Result Comment: Candace mated Glomerular Filtration Rate (eGFR) is calculated using the 2020 CKD-EPI creatinine equation. This equation utilizes serum creatinine, sex, and age as parameters. The creatinine assay has traceable calibration to isotope dilution-mass spectrometry. Refer to KDIGO guidelines for clinical interpretation. In patients with unstable renal function, e.g. those with acute kidney injury, the eGFR may not accurately reflect actual GFR. Performed By: #### 2 4321-2 #### [facility] CLIA [id number] [address] [place] [address] [place] Glucose [Mass/Vol] 191 mg/dL High 74-99 [facility] Comment on above: Order Comment: Mii men Type: BLOOD SPECIMEN Ordering Facility: [facility] Address: [address] [place] [address] Result Comment: The [place] Diabetes Association (ADA) provides guidance for cutoff values for fasting glucose and random glucose. The ADA defines fasting as no caloric intake for at least 8 hours. Fasting plasma glucose results between 100 to 125 [...] Standards of Medical Care in Diabetes 2016, [place] [employer]. Diabetes Care. 2016.39(Suppl 1). Performed By: #### 2 4321-2 #### [facility] CLIA [id number] [address] [place] [address] [place] Potassium [Moles/Vol] 4.7 mmol/L Normal 3.7-5.1 [facility] Comment on above: Order Comment: Speci men Type: BLOOD SPECIMEN Ordering Facility: [facility] Address: [address] [place] [address] Performed By: #### 2 4321-2 #### [facility] CLIA [id number] [address] [place] [address] [place] Sodium [Moles/Vol] 129 mmol/L Low 136-144 [facility] Comment on above: Order Comment: Speci men Type: BLOOD SPECIMEN Ordering Facility: [facility] Address: [address] [place] [address] Performed By: #### 2 4321-2 #### [facility] CLIA [id number] [address] [place] [address] [place] Urea nitrogen [Mass/Vol] 82 mg/dL High 9-24 [facility] Comment on above: Order Comment: Speci men Type: BLOOD SPECIMEN Ordering Facility: [facility] Address: [address] [place], [place] [address] Performed By: #### 2 4321-2 #### [facility] CLIA [id number] [facility] [address] [facility] Bedside Glucoseon 01-27-2025 FINGERSTICK GLU 127 mg/dL High 74-106 [facility] Comment on above: Result Comment: RACHEL GEMENT OF PATIENT CARE PER NURSING PROTOCOL Performed By: #### L 500.2500, L100.0100 #### [facility] [address] [place], [address] FINGERSTICK GLU 128 mg/dL High 74-106 [facility] Comment on above: Result Comment: RACHEL GEMENT OF PATIENT CARE PER NURSING PROTOCOL Performed By: #### L 501.080 ####[facility] [id number] [place], [address] FINGERSTICK GLU 145 mg/dL High 74-106 [facility] Comment on above: Result Comment: RACHEL GEMENT OF PATIENT CARE PER NURSING PROTOCOL Performed By: #### L 500.2500, L100.0100 #### [facility] [address] [place], [address] FINGERSTICK GLU 168 mg/dL High 74-106 [facility] Comment on above: Result Comment: RACHEL GEMENT OF PATIENT CARE PER NURSING PROTOCOL Performed By: #### L 501.080 ####[facility] [id number] [place], [address] FINGERSTICK GLU 200 mg/dL High -106 [facility] Comment on above: Result Comment: RACHEL GEMENT OF PATIENT CARE PER NURSING PROTOCOL Performed By: #### L 500.2500, L100.0100 #### [facility] [address] [place], [address] Beta-Hydroxbytyrateon 2024 BETA-HYDROXYBUT 0.0 mmol/L Normal 0.0-0.3 [facility] Comment on above: Performed By: #### L 501.6901 #### [facility] [address] [place], [address] Beta-hydroxybutyrateOrdered By: Yony Solis on 01-27-2025 Beta hydroxybutyrate [Mass/Vol] 0.0 mmol/L 0.0-0.3 [facility] CBC panel Auto (Bld)on 01-27 Erythrocyte distribution width (RBC) [Ratio] 11.6 % Normal 11.5-15.0 [facility] Comment on above: Order Comment: Speci men Type: BLOOD SPECIMENOrdering Facility: [facility] Address: [address] [place] [address] Performed By: #### 5 8410-2, 58224-2 ####[facility] [id number] [place] [address] [place] Hematocrit (Bld) [Volume fraction] 33.5 % Low 39.0-51.0 [facility] Comment on above: Order Comment: Speci men Type: BLOOD SPECIMENOrdering Facility: [facility] Address: [address] [place] [address] Performed By: #### 5 8410-2, 00485-0 ####[facility] [id number] [address] [place] Hemoglobin (Bld) [Mass/Vol] 11.9 g/dL Low 13.0-17.0 [facility] Comment on above: Order Comment: Speci men Type: BLOOD SPECIMENOrdering Facility: [facility] Address: [address] [place] [address] Performed By: #### 5 8410-2, 84207-3 ####[facility] [id number] [place] [address] [place] MCH (RBC) [Entitic mass] 30.8 pg Normal 26.0-34.0 [facility] Comment on above: Order Comment: Speci men Type: BLOOD SPECIMENOrdering Facility: [facility] Address: [address] [place] [address] Performed By: #### 5 8410-2, 83947-7 ####[facility] [id number] [place] [address] [place] MCHC (RBC) [Mass/Vol] 35.5 g/dL Normal 30.5-36.0 [facility] Comment on above: Order Comment: Speci men Type: BLOOD SPECIMENOrdering Facility: [facility] Address: [address] [place] [address] Performed By: #### 5 8410-2, 02998-3 ####[facility] [id number] [place] [address] [place] MCV (RBC) [Entitic vol] 86.8 fL Normal 80.0-100.0 [facility] Comment on above: Order Comment: Speci men Type: BLOOD SPECIMENOrdering Facility: [facility] Address: [address] [place] [address] Performed By: #### 5 8410-2, 66415-9 ####[facility] [id number] [place] [address] [place] Nucleated RBC (Bld) [#/Vol] 10*3/uL Normal <0.01 [facility] Comment on above: Order Comment: Speci men Type: BLOOD SPECIMENOrdering Facility: [facility] Address: [address] [place] [address] Performed By: #### 5 8410-2, 30473-9 ####[facility] [id number] [place] [id number] [place] Platelet mean volume (Bld) [Entitic vol] 9.7 fL Normal 9.0-12.7 [facility] Comment on above: Order Comment: Speci men Type: BLOOD SPECIMENOrdering Facility: [facility] Address: [address] [place] [address] Performed By: #### 5 8410-2, 61023-9 ####[facility] [id number] [place] [id number] [place] Platelets (Bld) [#/Vol] 167 10*3/uL Normal 150-400 [facility] Comment on above: Order Comment: Speci men Type: BLOOD SPECIMENOrdering Facility: [facility] Address: [address] [place] [address] Performed By: #### 5 8410-2, 79837-6 ####[facility] [id number] [place] [id number] [place] RBC (Bld) [#/Vol] 3.86 10*6/uL Low 4.20-6.00 [facility] Comment on above: Order Comment: Speci men Type: BLOOD SPECIMENOrdering Facility: [facility] Address: [address] [place] [address] Performed By: #### 5 8410-2, 77665-9 ####[facility] [id number] [place] [address] [place] WBC (Bld) [#/Vol] 9.72 10*3/uL Normal 3.70-11.00 [facility] Comment on above: Order Comment: Speci men Type: BLOOD SPECIMENOrdering Facility: [facility] Address: [address] [place] [address] Performed By: #### 5 8410-2, 42713-1 ####[facility] [id number] [place] [id number] [place] 01-27-2025 ANDREWS Telephone (Angio) ITALO BURGOS ([id number]) 1970 M Date Time Provider Department 01/27/25 NELI GUTIERREZ During your visit today, we recorded the following information about you: Neli Gutierrez RN 01/27/2025 9:07 AM Signed Tube Exchange Appointment Request Form Person filling out this form: Neli Gutierrez RN Date: January 27, 2025 Time: 9:06 AM Patient Name: Italo Burgos Patient What type of tube is this? Nephrostomy or nephroureteral (tube in the back) Does this tube need exchanged? Yes, How many weeks? 4 weeks Per physician direction, does this need to be physician specific? No Does this patient require SANDEEP? No Per physician, can this exchange be done in the region? No, Main campus If the patient has an already existing exchange appointment can that one be cancelled? Yes Any other pertinent information needed for schedulers? No Jenn Bruner 01/28/2025 2:37 PM Signed SCHD 02/25 INPT AT TIME OF SCHD Allergies As of Date: 01/27/2025 (No Known Allergies) Date Reviewed: 01/27/2025 Reviewed by: William Thibodeaux RN - Fully Assessed Reason for Visit: IR Inpatient Tube Appointment Request [[id number]] Prescriptions as of 01/28/2025 - carvedilol (COREG) 12.5 mg tablet Take 1 tablet by mouth two times a day. - mycophenolate sodium DR (MYFORTIC) 180 mg EC tablet Take 2 tablets by mouth two times a day. - Cholestyramine, Bulk, powd Take one(1) scoop dissolved in two(2) to six(6) ounces(oz) of fluid by mouth daily. - sulfamethoxazole-trimet hoprim (BACTRIM) 400-80 mg per tablet Take 1 tablet by mouth every Saturday, Saturday, and Saturday. - pantoprazole DR (PROTONIX) 20 mg tablet Take 1 tablet by mouth once daily. - predniSONE (DELTASONE) 5 mg tablet Take 1 tablet by mouth once daily. - buPROPion XL (WELLBUTRIN XL) 300 mg 24 hr tablet Take 1 tablet by mouth once daily. - buPROPion (WELLBUTRIN) 75 mg tablet Take 1 tablet by mouth once daily. - FLUoxetine (PROZAC) 10 mg capsule Take 1 capsule by mouth once daily. - tacrolimus IR (PROGRAF) 1 mg capsule Take 2 caps in am and 1 cap in pm - gabapentin (NEURONTIN) 100 mg capsule Take 1 capsule by mouth daily at bedtime for 180 days. - loperamide (IMODIUM) 2 mg cap(s) Take 1 capsule by mouth four times a day as needed. - pseudoephedrine (SUDAFED) 30 mg tablet Take Four 4 (30 mg) Tablets for an erection lasting more than 2 hours. If not improved in 1 hour MUST go to ER - ergocalciferol 50,000 unit capsule (VITAMIN D2, DRISDOL) Take 1 capsule by mouth one time a week. - insulin 50/50 lispro protamine-lispro units/mL (HUMALOG MIX 50-50 KWIKPEN) 100 unit/mL (50-50) pen Inject 30 Units subcutaneously daily at bedtime. - glucagon 3 mg/actuation nasal spray (BAQSIMI) Use 1 [place] in the nose as needed for low blood sugar. May repeat after 15 minutes using a new device if there is no response. - aspirin 81 mg chewable tablet chew and swallow 1 tablet by mouth once daily. - fluticasone (FLONASE) 50 mcg/actuation nasal spray Use 2 Sprays in each nostril once daily. Facility-Administered Medications as of 01/28/2025 - dextrose 15 gram/32 mL 15 g (TRUEPLUS) - glucagon 1 mg injection - dextrose 10% iv bolus - insulin lispro injection (rapid acting) (ADMElog) - acetaminophen 1,000 mg tab(s) (TYLENOL) - NaCl 0.9% iv flush bag - tacrolimus IR 2 mg cap(s) (PROGRAF) (Mar Hold) - buPROPion XL 300 mg tab(s) (WELLBUTRIN XL) - buPROPion 75 mg tab(s) (WELLBUTRIN) - FLUoxetine 10 mg cap(s) (PROzac) - predniSONE 5 mg tab(s) (DELTASONE) - sulfamethoxazole-trimet hoprim 400-80 mg 1 tablet (BACTRIM) - pantoprazole DR 20 mg tab(s) (PROTONIX) - tacrolimus IR 1 mg cap(s) (PROGRAF) (Mar Hold) - cefTRIAXone iv piggyback 1 g in dextrose (iso-osmotic) 50 mL (ROCEPHIN) - lactated ringers iv infusion Problem List As Of Date 01/27/2025 Noted Resolved Uncontrolled type 2 diabetes mellitus with comp*04/17/2006 Hypertension goal BP (blood pressure) < 140/90 *04/17/2006 Other hyperlipidemia [E78.49] 04/17/2006 Depressive disorder, not elsewhere classified [*04/17/2006 04/02/2019 ED (erectile dysfunction) [N52.9] 09/30/2014 Lower urinary tract symptoms (LUTS) [R39.9] 09/30/2014 History of kidney stones [Z87.442] 09/30/2014 Microscopic hematuria [R31.29] 09/30/2014 Diabetic polyneuropathy associated with type 2 *05/03/2017 Acute pain of right shoulder [M25.511] 05/03/2017 04/02/2019 Nausea [R11.0] 11/15/2017 Vomiting [R11.10] 11/15/2017 Moderate episode of recurrent major depressive *11/26/2017 Stage 3a chronic kidney disease (HCC) [N18.31] 11/26/2017 Right leg weakness [R29.898] 06/14/2018 Gait instability [R26.81] 06/14/2018 CKD (chronic kidney disease) requiring chronic *12/16/2018 11/23/2022 Kidney transplant recipient [Z94.0] 03/09/2021 Type 1 diabetes mellitus on insulin therapy (HC*03/23/2021 Immunodeficienc (more content not included)... [facility] ITALO BURGOS ([id number]) 1970 M Date Time Provider Department 01/27/25 AMANDA HAYES TXCTGL During your visit today, we recorded the following information about you: Amanda Hayes LISW 01/27/2025 1:58 PM Signed ADDY attempted to call pt regarding the possibility of being him homeless. ADDY was unable to leave a message. ADDY will attempt to contact pt at a later time. 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 - sulfamethoxazole-trimet hoprim (BACTRIM) 400-80 mg per tablet Take 1 tablet by mouth every Saturday, Saturday, and Saturday. - pantoprazole DR (PROTONIX) 20 mg tablet Take 1 tablet by mouth once daily. - predniSONE (DELTASONE) 5 mg tablet Take 1 tablet by mouth once daily. - buPROPion XL (WELLBUTRIN XL) 300 mg 24 hr tablet Take 1 tablet by mouth once daily. - buPROPion (WELLBUTRIN) 75 mg tablet Take 1 tablet by mouth once daily. - FLUoxetine (PROZAC) 10 mg capsule Take 1 capsule by mouth once daily. - tacrolimus IR (PROGRAF) 1 mg capsule Take 2 caps in am and 1 cap in pm - Blood-Glucose Meter,Continuous (DEXCOM G6 OFFICER CAPTAIN) misc 1 Each continuous. - Blood-Glucose Sensor (DEXCOM G6 SENSOR) glenn 1 Each continuous. - Blood-Glucose Transmitter (DEXCOM G6 TRANSMITTER) glenn 1 Each continuous. - carvedilol (COREG) 25 mg tablet Take 1 tablet by mouth two times a day. - losartan (COZAAR) 25 mg tablet Take 2 tablets by mouth once daily. - mycophenolate sodium DR (MYFORTIC) 180 mg EC tablet Take 2 tablets by mouth two times a day. - gabapentin (NEURONTIN) 100 mg capsule Take 1 capsule by mouth daily at bedtime for 180 days. - loperamide (IMODIUM) 2 mg cap(s) Take 1 capsule by mouth four times a day as needed. - Insulin Syringe-Needle U-100 1 mL 29 gauge x 1/2 1 Each as needed. For Intercavernal Injections - pseudoephedrine (SUDAFED) 30 mg tablet Take Four 4 (30 mg) Tablets for an erection lasting more than 2 hours. If not improved in 1 hour MUST go to ER - ergocalciferol 50,000 unit capsule (VITAMIN D2, DRISDOL) Take 1 capsule by mouth one time a week. - dulaglutide (TRULICITY) 0.75 mg/0.5 mL pen injector Inject 0.75 mg subcutaneously one time a week. - insulin 50/50 lispro protamine-lispro units/mL (HUMALOG MIX 50-50 KWIKPEN) 100 unit/mL (50-50) pen Inject 30 Units subcutaneously daily at bedtime. - Insulin [place], Disposable, ([employer] [facility] ULTRA-FINE SANDRA PEN NEEDLE) 32 gauge x 5/32 Use as directed four times daily - MEDICAL SUPPLY D/C oxygen - Lancets lancets Test Blood Sugar 3 x/day. Dx E11.8 Insulin Dependent, One Touch Verio brand preferred - Blood-Glucose Meter monitoring kit Glucose Meter of Choice, One Touch Verio preferred - Kit - Dx E11.8 Insulin Dependent, Test blood sugar three times a day - blood sugar diagnostic (BLOOD GLUCOSE TEST) test strip One Touch Verio preferred - Kit - Dx E11.8 Insulin Dependent, Test blood sugar three times a day - glucagon 3 mg/actuation nasal spray (BAQSIMI) Use 1 [place] in the nose as needed for low blood sugar. May repeat after 15 minutes using a new device if there is no response. - aspirin 81 mg chewable tablet chew and swallow 1 tablet by mouth once daily. - fluticasone (FLONASE) 50 mcg/actuation nasal spray Use 2 Sprays in each nostril once daily. - CPAP Initiate Auto PAP @ 5-20 cm of water with humidification. Mask (per patient preference) optional chin strap (if indicated) , filters, tubing, humidifier and lifetime supplies. - >Compression Knee Highs 30-40 mm KNEE HIGH COMPRESSION STOCKINGS, 30-40 MM, I DX: EDEMA - ACETAMINOPHEN ORAL Take by mouth. 1000 mg bid for pain / aches Facility-Administered Medications as of 01/27/2025 - magnesium sulfate iv piggyback in sterile water 2 g 50 mL - acetaminophen 1,000 mg tab(s) (TYLENOL) - insulin regular human injection (short acting) - insulin regular 100 units in NaCl 0.9% 100 mL - ICU NOMOGRAM - insulin regular human 2-10 Units bolus from bag - dextrose 15 gram/32 mL 15 g (TRUEPLUS) - glucagon 1 mg injection - dextrose 10% iv bolus - NaCl 0.9% iv flush bag - tacrolimus IR 2 mg cap(s) (PROGRAF) - buPROPion XL 300 mg tab(s) (WELLBUTRIN XL) - buPROPion 75 mg tab(s) (WELLBUTRIN) - FLUoxetine 10 mg cap(s) (PROzac) - predniSONE 5 mg tab(s) (DELTASONE) - sulfamethoxazole-trimet hoprim 400-80 mg 1 tablet (BACTRIM) - pantoprazole DR 20 mg tab(s) (PROTONIX) - tacrolimus IR 1 mg cap(s) (PROGRAF) - cefTRIAXone iv piggyback 1 g in dextrose (iso-osmotic) 50 mL (ROCEPHIN) Problem List As Of Date 01/27/2025 Noted Resol (more content not included)... Normal [facility] CONSULTon 01-27-2025 CONSULT HNO ID: [id number] Author: CHELSEA RYAN MD Service: Nephrology Author Type: Nurse Practitioner Type: Consults Filed: 01/27/2025 16:12 Note Text: Attestation signed by Chelsea Ryan MD at 01/27/2025 4:12 PM Department of Kidney Medicine Attending Note I have personally performed a face to face assessment of the patient and have reviewed the SUSAN note. I performed a substantive portion of the visit including all aspects of the following. My de anda findings include: Pt seen at bedside in MICU today S/p perc neph tube to kidney transplant with 1.2 L of urine output recorded thus far Pt provides no new complaints other than fatigue Noted plans for transfer to [facility] Suspect that he will have a post-obstructive diuresis, so will need to monitor UOP and lytes closely- check renal function this PM Will need definitive management of obstructive nephrolithiasis per urology Agree with short term hold of MMF while cultures are resulted Rest of plan and IS recs per SUSAN note Chelsea Ryan MD Department of Kidney Medicine [facility] [place] ICU NEPHROLOGY CONSULT NOTE Patient Name: Italo Burgos Consulting Service: Nephrology Requesting Provider: Carlos Anne MD Opinion/advice regarding: ILDA hx renal transplant Final recommendations will be communicated back to the requesting physician by way of shared medical record. HPI: 54 year old male with PMHx significant for DM, HTN, LUTS,ESRD S/P Renal transplant 03/2021, CKD 3, retinopathy, blind left eye, RLE weakness, depression, GERD, HLD, UTI, NE, DKA, CAD, renal calculi, hematuria, LUANNE, cholecystectomy, necrotizing fascitis, osteomyelitis s/p amputation of fifth toe, appt non-adherence, who presented to OSH with complaints of hyperglycemia and dizziness. Per patient he woke up from a nap with dizziness, checked his BS >500. Additionally, he had been experiencing abd/flank pain intermittently x5 days. He denies any N/V/D, fever, chills or changes in UOP. Labs on presentation significant for ILDA BUN/Cr 90/10.50, hyponatremia, and acidosis. CT AP obtained showing Right pelvic transplanted kidney transplanted right kidney ureter 10 mm calculus with severe upstream hydroureteronephrosis. Transplant kidney perinephric stranding which may represent back pressure. On presentation his BP with slightly hypotensive with SBP 80s. Patient was transferred to F for further management. Upon arrival to [facility] urology was consulted and now s/p Rt nephrostomy tube placement. Nephrology was consulted for ILDA and history of renal transplant. PAST MEDICAL HISTORY: PAST MEDICAL HISTORY Diagnosis Date Acute diastolic (congestive) heart failure (HCC) Bronchitis Chronic kidney failure, stage 4 (severe) (HCC) 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 ([facility]) 12/16/2018 Depression Detached retina DM type 2, goal HbA1c < 7% ([facility]) Erectile dysfunction, unspecified erectile dysfunction type ESRD (end stage renal disease) ([facility]) GERD (gastroesophageal reflux disease) Hyperlipidemia Kidney replaced by transplant ([facility]) Kidney stones LUANNE (obstructive sleep apnea) PNA (pneumonia) Proliferative retinopathy 02/10/2019 PTE (post-transplant erythrocytosis) Snoring Unspecified essential hypertension Vitamin D deficiency Vitamin D deficiency PAST SURGICAL HISTORY: PAST SURGICAL HISTORY Procedure Laterality Date AMPUTATION TOE,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 08/08/2018 Done at [facility] by Satish Phan MD CHOLECYSTECTOMY 1998 Cholecystectomy COLONOSCOPY 12/04/2018 COLONOSCOPY SCREENING 04/01/2024 CYSTO W/COMPLEX REMOVAL STONE AND STENT 1999 EGD 12/04/2018 EGD W/O [facility] SPEC VARICIES INJ 04/01/2024 PAST SURGICAL HISTORY OF Left 2012 AND 2014 removal eye fluid with instillation oil FAMILY HISTORY: FAMILY HISTORY Problem Relation Age of Onset Colon Cancer Father 53 Diabetes Brother 52 Diabetes Sister Diabetes Mother 78 Heart Attack Mother Cancer Brother 49 lung Diabetes Son SOCIAL HISTORY: Social History Tobacco Use Smoking status: Never Smokeless tobacco: Former Types: Snuff Tobacco comments: snuff x 33 years Quit in 2020 Vaping Use Vaping status: Never Used Substance Use Topics Alcohol use: Not Currently Drug use: Not Currently Types: Marijuana MEDICATIONS: Prior to Admission Medications: Cholestyramine, Bulk, powdTake one(1) scoop dissolved in two(2) to six(6) ounces(oz) of fluid by mouth daily.Disp: 1 gRfl: 1 sulfamethoxazole-trimet hoprim (BACTRIM) 400-80 mg per tabletTake 1 tablet by mouth every Saturday, Saturday, and Saturday.Disp: 12 tabletRfl: [address] (PROTONIX) 20 mg tabletTake 1 tablet by mouth once daily.Disp: 90 tabletRfl: 3 predniSONE (DELTASONE) 5 mg table (more content not included)... Normal [facility] CONSULT HNO ID: [id number] Author: DYLAN URIBE MD Service: Urology Author Type: Resident Type: Consults Filed: 01/27/2025 06:42 Note Text: [facility] UROLOGY CONSULT NOTE PATIENT NAME: Italo Burgos ASSESSMENT AND PLAN: Italo Burgos is a 54 year old male with a history of HTN, CHF, nephrolithiasis, ESRD s/p DDKT 03/09/21, who presents as transfer to MICU with ILDA, hydronephrosis of transplant kidney 2/2 to 1cm obstructing stone. Urology is consulted regarding management of ILDA, hydronephrosis. Significant ILDA with oliguria 2/2 obstructing stone. Given size of stone, suspect retrograde stent placement may be difficult. Favor IR for nephrostomy tube placement to transplant kidney on emergent basis. Recommendations -STAT IR consult for nephrostomy to transplant kidney (ordered) -Please keep NPO -Please consult Transplant Nephrology -Continue wilhelm to gravity drainage -Urology to follow closely To be discussed with staff, Dr. Cummings. Dylan Uribe MD Urology Resident [facility] [place] Pager [phone] For weekend or after hours issues please page the on-call urology pager 5:54 AM 01/27/2025 HPI Italo Burgos is a 54 year old male with a history of HTN, CHF, nephrolithiasis, ESRD s/p DDKT 03/09/21, who presents as transfer to MICU with ILDA, hydronephrosis of transplant kidney 2/2 to 1cm obstructing stone. Reports decreased urine output for the last 5 days, prior to that had been his normal a lot. He presented to the ED yesterday after noting dizziness. Denies fever, chills, SOB, leg swelling. No blood thinners. Last meal yesterday. In the ED, labs notable for significant ILDA. CT demonstrated 1cm obstructing stone transplant kidney. Review of relevant labs/vitals: Prior labs at OSH with Cr to 10.5 (baseline around 2.1). K 4.6. WCB 9.5 Here INR 1. Awaiting repeat BMP. PAST MEDICAL HISTORY Diagnosis Date Acute diastolic (congestive) heart failure (HCC) Bronchitis Chronic kidney failure, stage 4 (severe) (HCC) 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 ([facility]) 12/16/2018 Depression Detached retina DM type 2, goal HbA1c < 7% ([facility]) Erectile dysfunction, unspecified erectile dysfunction type ESRD (end stage renal disease) ([facility]) GERD (gastroesophageal reflux disease) Hyperlipidemia Kidney replaced by transplant Kidney stones LUANNE (obstructive sleep apnea) PNA (pneumonia) Proliferative retinopathy 02/10/2019 PTE (post-transplant erythrocytosis) Snoring Unspecified essential hypertension Vitamin D deficiency Vitamin D deficiency PAST SURGICAL HISTORY Procedure Laterality Date AMPUTATION TOE,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 08/08/2018 Done at [facility] by Satish Phan MD CHOLECYSTECTOMY 1998 Cholecystectomy COLONOSCOPY 12/04/2018 COLONOSCOPY SCREENING 04/01/2024 CYSTO W/COMPLEX REMOVAL STONE AND STENT 1999 EGD 12/04/2018 EGD W/O [facility] SPEC VARICIES INJ 04/01/2024 PAST SURGICAL HISTORY OF Left 2012 AND 2014 removal eye fluid with instillation oil FAMILY HISTORY Problem Relation Age of Onset Colon Cancer Father 53 Diabetes Brother 52 Diabetes Sister Diabetes Mother 78 Heart Attack Mother Cancer Brother 49 lung Diabetes Son Social History Tobacco Use Smoking status: Never Smokeless tobacco: Former Types: Snuff Tobacco comments: snuff x 33 years Quit in 2020 Vaping Use Vaping status: Never Used Substance Use Topics Alcohol use: Not Currently Drug use: Not Currently Types: Marijuana MEDICATIONS: Prior to Admission Medications: Cholestyramine, Bulk, powdTake one(1) scoop dissolved in two(2) to six(6) ounces(oz) of fluid by mouth daily.Disp: 1 gRfl: 1 sulfamethoxazole-trimet hoprim (BACTRIM) 400-80 mg per tabletTake 1 tablet by mouth every Saturday, Saturday, and Saturday.Disp: 12 tabletRfl: [address] (PROTONIX) 20 mg tabletTake 1 tablet by mouth once daily.Disp: 90 tabletRfl: 3 predniSONE (DELTASONE) 5 mg tabletTake 1 tablet by mouth once daily.Disp: 30 tabletRfl: 11 buPROPion XL (WELLBUTRIN XL) 300 mg 24 hr tabletTake 1 tablet by mouth once daily.Disp: 90 tabletRfl: 3 buPROPion (WELLBUTRIN) 75 mg tabletTake 1 tablet by mouth once daily.Disp: 90 tabletRfl: 3 FLUoxetine (PROZAC) 10 mg capsuleTake 1 capsule by mouth once daily.Disp: 90 capsuleRfl: 3 tacrolimus IR (PROGRAF) 1 mg capsuleTake 2 caps in am and 1 cap in pmDisp: 90 capsuleRfl: 11 Blood-Glucose Meter,Continuous (DEXCOM G6 OFFICER CAPTAIN) misc1 Each continuous.Disp: 1 EachRfl: 0 Blood-Glucose Sensor (DEXCOM G6 SENSOR) devi1 Each continuous.Disp: 9 EachRfl: 3 Blood-Glucose Transmitter (DEXCOM G6 TRANSMITTER) devi1 Each continuous.Disp: 1 EachRfl: 0 carvedilol (COREG) 25 mg tabletTake 1 tablet by mouth two times a day.Disp: 60 tabletRfl: 11 losartan (COZAAR) 25 mg tabletTake 2 tab (more content not included)... Normal [facility] Carbon dioxide, total [Moles /volume] in Central venous bloodOrdered By: Yony Solis on 01-27-2025 CO2 [Moles/Vol] 16.7 mmol/L Low 21.0-32.0 [facility] Chloride assayOrdered By: Aldair Solis on 01-27-2025 Chloride [Moles/Vol] 94 mmol/L Low 98-108 [facility] Comprehensive metabolic 2000 panelon 01-27-2025 Albumin [Mass/Vol] 2.6 g/dL Low 3.9-4.9 [facility] Comment on above: Order Comment: Speci men Type: BLOOD SPECIMEN Ordering Facility: [facility] Address: [address] [place] [address] Performed By: #### 2 4323-8, , 2776-09 #### [facility] CLIA [id number] [address] [place] [address] [place] ALP [Catalytic activity/Vol] 100 U/L Normal 38-113 [facility] Comment on above: Order Comment: Speci men Type: BLOOD SPECIMEN Ordering Facility: [facility] Address: [address] [place] [address] Performed By: #### 2 4323-8, , 2776- #### [facility] CLIA [id number] [address] [place] [address] [place] ALT [Catalytic activity/Vol] 11 U/L Normal 10-54 [facility] Comment on above: Order Comment: Speci men Type: BLOOD SPECIMEN Ordering Facility: [facility] Address: [address] [place] [address] Performed By: #### 2 4323-8, 19795-3, 2776- #### [facility] CLIA [id number] [address] [place] [address] [place] Anion gap [Moles/Vol] 16 mmol/L High 8-15 [facility] Comment on above: Order Comment: Speci men Type: BLOOD SPECIMEN Ordering Facility: [facility] Address: [address] [place] [address] Performed By: #### 2 4323-8, , 2776-09 #### [facility] CLIA [id number] [address] [place] [address] [place] AST [Catalytic activity/Vol] 13 U/L Low 14-40 [facility] Comment on above: Order Comment: Speci men Type: BLOOD SPECIMEN Ordering Facility: [facility] Address: [address] [place] [address] Result Comment: Resu lts may be falsely increased due to interference from hemolysis. Suggest reorder as clinically indicated. Performed By: #### 2 4323-8, 87494-0, 2776-09 #### [facility] CLIA [id number] [address] [place] [address] [place] Bilirubin [Mass/Vol] 0.5 mg/dL Normal 0.2-1.3 [facility] Comment on above: Order Comment: Speci men Type: BLOOD SPECIMEN Ordering Facility: [facility] Address: [address] [place] [address] Performed By: #### 2 4323-8, 13112-9, 2776- #### [facility] CLIA [id number] [address] [place] [address] [place] Calcium [Mass/Vol] 8.1 mg/dL Low 8.5-10.2 [facility] Comment on above: Order Comment: Speci men Type: BLOOD SPECIMEN Ordering Facility: [facility] Address: [address] [place] [address] Performed By: #### 2 4323-8, 48552-0, 2776-09 #### [facility] CLIA [id number] [address] [place] [address] [place] Chloride [Moles/Vol] 94 mmol/L Low 98-107 [facility] Comment on above: Order Comment: Speci men Type: BLOOD SPECIMEN Ordering Facility: [facility] Address: [address] [place] [address] Performed By: #### 2 4323-8, , 2776-09 #### [facility] CLIA [id number] [address] [place] [address] [place] CO2 [Moles/Vol] 16 mmol/L Low 22-30 [facility] Comment on above: Order Comment: Speci men Type: BLOOD SPECIMEN Ordering Facility: [facility] Address: [address] [place] [address] Performed By: #### 2 4323-8, , 2776-09 #### [facility] CLIA [id number] [address] [place] [address] [place] Creatinine [Mass/Vol] 9.90 mg/dL High 0.73-1.22 [facility] Comment on above: Order Comment: Speci men Type: BLOOD SPECIMEN Ordering Facility: [facility] Address: [address] [place] [address] Performed By: #### 2 4323-8, , 2776-09 #### [facility] CLIA [id number] [address] [place] [address] [place] Creatinine and Glomerular filtration rate.predicted panel (S/P/Bld) 6 mL/min/1.73m??? Low >=60 [facility] Comment on above: Order Comment: Gabriel martin Type: BLOOD SPECIMEN Ordering Facility: [facility] Address: [address] [place] [address] Result Comment: Candace mated Glomerular Filtration Rate (eGFR) is calculated using the 2020 CKD-EPI creatinine equation. This equation utilizes serum creatinine, sex, and age as parameters. The creatinine assay has traceable calibration to isotope dilution-mass spectrometry. Refer to KDIGO guidelines for clinical interpretation. In patients with unstable renal function, e.g. those with acute kidney injury, the eGFR may not accurately reflect actual GFR. Performed By: #### 2 4323-8, 89321-6, 2776-09 #### [facility] CLIA [id number] [address] [place] [address] [place] Glucose [Mass/Vol] 145 mg/dL High 74-99 [facility] Comment on above: Order Comment: Gabirel martin Type: BLOOD SPECIMEN Ordering Facility: [facility] Address: [address] [place] [address] Result Comment: The [place] Diabetes Association (ADA) provides guidance for cutoff values for fasting glucose and random glucose. The ADA defines fasting as no caloric intake for at least 8 hours. Fasting plasma glucose results between 100 to 125 [...] Standards of Medical Care in Diabetes 2016, [place] [employer]. Diabetes Care. 2016.39(Suppl 1). Performed By: #### 2 4323-8, 64367-9, 2776- #### [facility] CLIA [id number] [address] [place] [address] [place] Potassium [Moles/Vol] 4.8 mmol/L Normal 3.7-5.1 [facility] Comment on above: Order Comment: Speci men Type: BLOOD SPECIMEN Ordering Facility: [facility] Address: [address] [place] [address] Performed By: #### 2 4323-8, , 2776-09 #### [facility] CLIA [id number] [address] [place], [place] [address] [place] Protein [Mass/Vol] 5.0 g/dL Low 6.3-8.0 [facility] Comment on above: Order Comment: Speci men Type: BLOOD SPECIMEN Ordering Facility: [facility] Address: [address] [place] [address] Performed By: #### 2 4323-8, , 2776-09 #### [facility] CLIA [id number] [address] [place] [address] [place] Sodium [Moles/Vol] 126 mmol/L Low 136-144 [facility] Comment on above: Order Comment: Speci men Type: BLOOD SPECIMEN Ordering Facility: [facility] Address: [address] [place] [address] Performed By: #### 2 4323-8, , 2776-09 #### [facility] CLIA [id number] [address] [place], [place] [address] [place] Urea nitrogen [Mass/Vol] 83 mg/dL High 9-24 [facility] Comment on above: Order Comment: Speci men Type: BLOOD SPECIMEN Ordering Facility: [facility] Address: [address] [place], [place] [address] Performed By: #### 2 4323-8, , 2776-09 #### [facility] CLIA [id number] [address] [place], [place] [address] [place] ECG COMPLETEon 01-27-2025 ECG COMPLETE Ventricular Rate : 7 0 BPM Atrial Rate : 70 BPM P-R Interval : 206 ms QRS Duration : 116 ms Q-T Interval : 422 ms QTC Calculation(Bazett) : 455 ms Calculated P [place] : 23 degrees Calculated R [place] : -32 degrees Calculated T [place] : 8 degrees SINUS RHYTHM WITH OCCASIONAL PREMATURE VENTRICULAR COMPLEXES LEFT AXIS DEVIATION ANTEROSEPTAL MYOCARDIAL INFARCTION , AGE UNDETERMINED ABNORMAL ECG Confirmed by MD RICHTER HEBA ([id number]) on 02/22/2025 10:43:13 AM NAME : ITALO BURGOS PID : [id number] : 1970 Gender : Male Race : ORD : [id number] Procedure Date : Jan 27 2025 06:15:13 Edit Date : Feb 22 2025 10:43:15 Diagnosis: SINUS RHYTHM WITH OCCASIONAL PREMATURE VENTRICULAR COMPLEXES LEFT AXIS DEVIATION ANTEROSEPTAL MYOCARDIAL INFARCTION , AGE UNDETERMINED ABNORMAL ECG Confirmed by MD RICHTER HEBA ([id number]) on 02/22/2025 10:43:13 AM Test Reason : Pre-OP Location : [address] [place] [address] Overread By : MD RICHTER HEBA Edited By : MD RICHTER HEBA Referred By : YONY SOLIS Acquired by : DIVYA GONSALEZ [facility] Glomerular filtration rate ( GFR) estimation/1.73 sq m using serum, plasma, or whole bOrdered By: Yony Solis on 01-27-2025 GFR/1.73 sq M.predicted among non-blacks MDRD (S/P/Bld) [Vol rate/Area] 5 mL/min/{1.73_m2} Low >60 [facility] Comment on above: mL/min/1.73m2 CKD-EP I Creatinine Equation (2020) [facility] deOrdered By: Yony Solis on 01-27-2025 Glucose [Mass/Vol] 127 mg/dL High 74-106 [facility] Comment on above: MANAGEMENT OF PATIEN T CARE PER NURSING PROTOCOL Glucose [Mass/Vol] 128 mg/dL High 74-106 [facility] Comment on above: MANAGEMENT OF PATIEN T CARE PER NURSING PROTOCOL HISTORY PHYSICALon HISTORY PHYSICAL HNO ID: [id number] Author: KATHIA SANTIAGO MD Service: General Internal Medicine Author Type: Resident Type: H&P Filed: 01/27/2025 18:45 Note Text: Attestation signed by Kathia Santiago MD at 01/27/2025 6:45 PM (Updated) I have seen the patient face to face and reviewed the history and physical examination obtained and documented by the resident/ fellow/ physician integration architect. I personally participated in the de anda components. I have discussed the case and management of the patient's care. Agree with above findings, assessment, and plan of care formulated with my direct input. Amendments, if present, are entered in bold in the note, and/or detailed below. Oliguric ILDA Obstructive uropathy w/nephrolithiasis SP PCN 01/27 w/UOP >2L today Iso CKD renal txp 03/2021 Electrlyte abnormalities Adm CR 10.5-- now 7.42 ( BCR 1.4-1.5) Concern for UTI /MMF held /lisinopril held as well Monitor temp. Curve, counts, inflammatory markers and cultures. Monitor for and replace 1/2to 2/3rd UOP while in post-obstructiev diuresis Monitor and replete electrolytes Nephrology AND urology on board. DEPARTMENT OF HOSPITAL MEDICINE HISTORY AND PHYSICAL EXAM SERVICE DATE: 01/27/2025 SERVICE TIME: 2:27 PM Primary Care Physician: Zaida Gaston MD NIGHT AND WEEKEND COVERAGE: [facility] COVERAGE: Days: [phone], please page Joel Chapin for patient issues. CHIEF COMPLAINT: Obstructive ILDA HPI: 54 year old male patient with a history of ESRD status post donor renal transplant in March 2021 presents with acute kidney injury secondary to obstructive uropathy Past medical history is remarkable for: ESRD s/p donor renal transplant 03/2021 (on tacrolimus 2 mg AM/1 mg PM, prednisone 5 mg daily, mycophenolate mofetil 180mg BID) Type 2 diabetes mellitus (A1c 10.7) Hypertension (on carvedilol 25mg and losartan 25mg) Chronic kidney disease stage 3a of transplanted kidney History of recurrent urinary tract infections and renal calculi Patient reports intermittent right-sided flank pain for 5 days, described as moderate intensity and worsening. He consulted to an outside hospital. He notes decreased urine output but still producing some urine. Denies hematuria, dysuria, fever, chills, nausea, vomiting, or bowel symptoms. He developed dizziness last night after lying down and woke up with severe right flank pain. No shortness of breath. He has chronic mild lower extremity edema. On presentation to outside hospital, labs showed elevated creatinine at 10.5 (baseline 1.4-1.6), hyponatremia (Na 126), metabolic acidosis, and hyperglycemia with blood glucose above 500 mg/dL but negative for DKA. CT abdomen/pelvis revealed a 1 cm obstructing stone in the right transplanted kidney ureter causing kndeseui-ae-qwfuht hydroureteronephrosis, perinephric stranding, and a thickened bladder wall suggestive of cystitis. Transferred to [facility] for higher level care, urology placed a right nephrostomy tube for obstruction relief. Immunosuppressive regimen maintained with tacrolimus and prednisone; mycophenolate held due to infection concerns. He is currently NPO, on sliding scale insulin for hyperglycemia, and has an indwelling Wilhelm catheter. He denies new urinary symptoms and reports no fever or chills. PAST MEDICAL HISTORY Diagnosis Date Acute diastolic (congestive) heart failure ([facility]) Bronchitis Chronic kidney failure, stage 4 (severe) ([facility]) 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 ([facility]) 12/16/2018 Depression Detached retina DM type 2, goal HbA1c < 7% ([facility]) Erectile dysfunction, unspecified erectile dysfunction type ESRD (end stage renal disease) ([facility]) GERD (gastroesophageal reflux disease) Hyperlipidemia Kidney replaced by transplant ([facility]) Kidney stones LUANNE (obstructive sleep apnea) PNA (pneumonia) Proliferative retinopathy 02/10/2019 PTE (post-transplant erythrocytosis) Snoring Unspecified essential hypertension Vitamin D deficiency Vitamin D deficiency PAST SURGICAL HISTORY Procedure Laterality Date AMPUTATION TOE,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 08/08/2018 Done at [facility] by Satish Phan MD CHOLECYSTECTOMY 1998 Cholecystectomy COLONOSCOPY 12/04/2018 COLONOSCOPY SCREENING 04/01/2024 CYSTO W/COMPLEX REMOVAL STONE AND STENT 1999 [facility]GD [facility]04[facility]IC[facility] INJ 04/01/2024 PAST SURGICAL HISTORY OF Left 2012 AND 2014 removal eye fluid with instillation oil FAMILY HISTORY Problem Relation Age of Onset Colon Cancer Father 53 Diabetes Brother 52 Diabetes Sister Diabetes Mother 78 Heart Attack Mother Cancer Brother 49 lung Diabetes Son Social History Tobacco Use Smoking status: Never Smokeless tobacco: Former Type (more content not included)... Normal [facility] HISTORY PHYSICAL HNO ID: [id number] Author: TENZIN DANIEL MD Service: Interventional Radiology Author Type: Physician Type: H&P Filed: 01/27/2025 07:58 Note Text: UPDATED HISTORY AND PHYSICAL EXAMINATION SERVICE DATE: 01/27/2025 SERVICE TIME: 7:58 AM PHYSICAL EXAM MUST BE COMPLETED ON ADMISSION PROCEDURE SCHEDULED: Procedure(s): PERC PLACEMENT NEPHROSTOMY CATH,INCLUDING DIAGNOSTIC NEPHROSTOGRAM/URETEROGR AM WHEN PERFORMED,IMAGING GUIDANCE AND ALL ASSOCIATED RAD PETER (Pending) RADIOLOGY ORDER PLACED: The History and Physical (completed in the past 30 days) has been reviewed and the patient has been examined. The contents accurately reflect the patient's condition with the following additions or revisions since the HANDP was completed. Examination indicates no changes. This HANDP can be found in the Electronic Medical Record dated 01/27/25. SIGNATURE: Tenzin Daniel MD PATIENT NAME: Italo Burgos DATE: January 27, 2025 TIME: 7:58 AM PAGER: Normal [facility] HISTORY PHYSICAL HNO ID: [id number] Author: RAY PINA MD Service: Critical Care Author Type: Physician Type: H&P Filed: 01/27/2025 08:58 Note Text: MICU: HISTORY AND PHYSICAL Italo Burgos [id number] ADMISSION DATE: 01/27/2025 LENGTH OF STAY: 0 MICU DAY: PRIMARY CARE PHYSICIAN: Zaida Gaston MD Subjective Chief Complaint ILDA History of Present Illness Italo Burgos is a 54 year old male with ILDA from [facility]. PMH s/f T2DM c/b ESRD s/p DDRT 03/2021 (envarsus, MMF, pred) with graft CKD (baseline cr 1.4-1.6), HTN, GERD, MDD, L foot infections s/p toe amputations. Per OSH and records, CT A/P showed 1cm obstructing stone in transplanted R kidney with zocqdpnj-vh-wjamrv upstream hydroureteronephrosis; severely thickened urinary bladder wall c/f cystitis. Patient states he developed intermittent R sided flank pain 5 days ago. Still producing urine, though less than before. No hematuria, dysuria, or other urinary sx. Started feeling dizzy last night, lied down, woke up with severe R flank pain. No f/c/n/v, no SOB, has chronic mild LE edema, no bowel sx, no other recent illnesses. Prior to arrival to MICU: At [facility], c/f DKA, ILDA. DKA ruled out based on workup. WBC 9.5, ANC 8, Hb 12.9, plt 168. Cr 10.5 (baseline cr 1.4-1.6), Na 126, AG 16, gluc 279. BHB 0. UA: 1000 glucose, protein, LE 25, blood, wbc, no bacteria, negative ketones. Acidotic on gas. Imaging as detailed above. Transferred to ICU. On arrival to MICU: T 97.8, BP 101/58, HR 73, RR 20 w/ SpO2 97% on RA. Pt NAD, AOx3. Exam notable for R flank tenderness, no guarding, rebound. Urology consulted: STAT IR consult for nephrostomy to transplant kidney (ordered), NPO, consult Transplant Nephrology, choco. Initial data significant for gluc 136. WBC 9.72, Hb 11.9, rest of labs pending. Started on SSI given no DKA and improving hyperglycemia. Past Medical History PAST MEDICAL HISTORY Diagnosis Date Acute diastolic (congestive) heart failure ([facility]) Bronchitis Chronic kidney failure, stage 4 (severe) ([facility]) 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 ([facility]) 12/16/2018 Depression Detached retina DM type 2, goal HbA1c < 7% ([facility]) Erectile dysfunction, unspecified erectile dysfunction type ESRD (end stage renal disease) ([facility]) GERD (gastroesophageal reflux disease) Hyperlipidemia Kidney replaced by transplant ([facility]) Kidney stones LUANNE (obstructive sleep apnea) PNA (pneumonia) Proliferative retinopathy 02/10/2019 PTE (post-transplant erythrocytosis) Snoring Unspecified essential hypertension Vitamin D deficiency Vitamin D deficiency Past Surgical History PAST SURGICAL HISTORY Procedure Laterality Date AMPUTATION TOE,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 08/08/2018 Done at [facility] by Satish Phan MD CHOLECYSTECTOMY 1998 Cholecystectomy COLONOSCOPY 12/04/2018 COLONOSCOPY SCREENING 04/01/2024 CYSTO W/COMPLEX REMOVAL STONE AND STENT 1999 EGD 12/04/2018 [facility] VARICIES INJ 04/01/2024 PAST SURGICAL HISTORY OF Left 2012 AND 2014 removal eye fluid with instillation oil Family History FAMILY HISTORY Problem Relation Age of Onset Colon Cancer Father 53 Diabetes Brother 52 Diabetes Sister Diabetes Mother 78 Heart Attack Mother Cancer Brother 49 lung Diabetes Son Social History Social History Tobacco Use Smoking status: Never Smokeless tobacco: Former Types: Snuff Tobacco comments: snuff x 33 years Quit in 2020 Vaping Use Vaping status: Never Used Substance Use Topics Alcohol use: Not Currently Drug use: Not Currently Types: Marijuana Medications Current Facility-Administered Medications Medication Dose Route Frequency magnesium sulfate iv piggyback in sterile water 2 g 50 mL 2 g INTRAVENOUS PRN acetaminophen 1,000 mg tab(s) (TYLENOL) 1,000 mg ORAL/FEEDING TUBE q 6 H PRN insulin regular human injection (short acting) SUBCUTANEOUS q 6 H insulin regular 100 units in NaCl 0.9% 100 mL - ICU NOMOGRAM 0-30 Units/hr INTRAVENOUS CONTINUOUS insulin regular human 2-10 Units bolus from bag 2-10 Units INTRAVENOUS PRN dextrose 15 gram/32 mL 15 g (TRUEPLUS) 15 g ORAL PRN glucagon 1 mg injection 1 mg SUBCUTANEOUS PRN dextrose 10% iv bolus 12.5-25 g INTRAVENOUS PRN NaCl 0.9% iv flush bag 20 mL INTRAVENOUS PRN tacrolimus IR 2 mg cap(s) (PROGRAF) 2 mg ORAL DAILY (6 AM) buPROPion XL 300 mg tab(s) (WELLBUTRIN XL) 300 mg ORAL DAILY buPROPion 75 mg tab(s) (WELLBUTRIN) 75 mg ORAL DAILY FLUoxetine 10 mg cap(s) (PROzac) 10 mg ORAL DAILY predniSONE 5 mg tab(s) (DELTASONE) 5 mg ORAL DAILY sulfamethoxazole-trimet hoprim 400-80 mg 1 tablet (BACTRIM) [address] 20 mg tab(s) (PROTONIX) 20 mg ORAL DAILY tacrolimus IR 1 mg cap(s) (PROGRAF) 1 mg ORAL DAILY AT 6 PM Allergies Patient has no known allergies. Review of Systems Negative except as detailed above. Objective Physical Exam BP (more content not included)... Normal [facility] IR NEPHROSTOMY TUBE PLACEon 01-27-[address] * * *Final Report* * * DATE OF EXAM: Jan 27 2025 8:53AM [facility] 0779 - IR NEPHROSTOMY TUBE PLACE / PROCEDURE REASON: hydro * * * * Physician Interpretation * * * * PROCEDURE: Genitourinary catheter placement Procedural Personnel Attending physician(s): Tenzin Daniel MD Fellow physician(s): Altaf De Jesus MD Pre-procedure diagnosis: Obstructive uropathy Post-procedure diagnosis: Same Indication: Urinary obstruction Catheter(s) placed because the previous catheter(s) became dislodged within 30 days of placement (QCDR): No Additional clinical history: 54 year old male with right lower quadrant transplant kidney 03/09/2021, transferred to ICU with ILDA and hydronephrosis of transplant kidney due to 1 cm obstructing stone PROCEDURE SUMMARY - Target organ: Transplant kidney - Image-guided placement of genitourinary catheter(s) - Additional procedure(s): None PROCEDURE DETAILS: Pre-procedure Consent: Risks, benefits, treatment options, potential complications and personnel to be involved were discussed (including the risks of radiation exposure, contrast and anesthesia administration, and any equipment needed for the procedure to ensure best possible outcome) with the patient and all questions were answered and consent was obtained prior to procedure. Premedicated for contrast allergy: n/a Transfusion of blood products: No Medication reconciliation: The patient's medications and allergies were reviewed in the electronic medical record and reconciled to the proposed procedure/treatment. Dunia-procedure discussion: The appropriate elements of the pre-procedure discussion, safety check list and sign-out were performed. Time out: A time out was performed immediately prior to procedure start with the nursing and interventional team, correctly identifying the name, date of , procedure, anatomy (including marking of site and side if applicable), patient position, procedure consent form, relevant diagnostic and radiology test results, antibiotic administration if applicable, safety precautions, and procedure-specific equipment needs. Start of procedure: 834 End of procedure: 08 Patient position: Supine Preparation: The site was prepared and draped using all elements of maximal sterile barrier technique including sterile gloves, sterile gown, cap, mask, large sterile sheet, sterile ultrasound probe cover, hand hygiene and cutaneous antisepsis. Antibiotics: Ceftriaxone Antibiotic infusion start time: 08 Prophylactic antibiotic administered: Within 1 hour of procedure start time or 2 hours for vancomycin or fluoroquinolones Additional med: None Additional med: None Anesthesia/sedation Level of anesthesia/sedation: Moderate sedation (conscious sedation) Anesthesia/sedation administered by: Independent trained observer under attending supervision with continuous monitoring of the patient?s level of consciousness and physiologic status Total intra-service sedation time (minutes): 18 Transplant genitourinary catheter placement Local anesthesia was administered. A needle was advanced into the renal collecting system under ultrasound guidance. A wire was advanced, the tract was serially dilated and a nephrostomy tube was placed. Contrast injection was performed. Genitourinary catheter placed: 10 F [employer] nephrostomy Findings: Severe hydronephrosis on ultrasound exam. After decompression through the tube, substantial improvement in hydronephrosis. Obstructing calculus is seen distally in the ureter. External catheter securement: Non-absorbable suture Additional genitourinary system intervention Genitourinary intervention: None Location of intervention: Not applicable Device used: Not applicable Description of intervention: Not applicable Post-intervention findings: Not applicable Contrast Contrast agent: OMNIPAQUE 240 Contrast volume (mL): 4 Radiation Dose Plane A, Air Kerma: 5.5 mGy Dose Area Product (DAP): 820.0 mGy*cm2 Fluoro Time: 1:12 min:sec Radiation dose exceed 5 Gy: No If radiation dose exceeded 5 Gy, was counseling and instructional brochure provided: N/A Additional Details Additional description of procedure: None Equipment details: None Specimens removed: None. A sample was sent for analysis. Estimated blood loss (mL): Less than 10 Standardized report: SIR_GUCatheterPlacement _v3 Complications There were no immediate complications and no other complications. Conclusion The patient was comfortable and was transferred to the recovery room in unchanged condition. The procedure was performed by the: the communication assistant, and the attending radiologist was present for all critical and de anda portions of the procedure, and was immediately available to furnish services during the entire procedure. The attending radiologist performed the (more content not included)... Normal [facility] Magnesium SerPl-mCncon 01-27 Magnesium [Mass/Vol] 1.8 mg/dL Normal 1.7-2.3 [facility] Comment on above: Order Comment: Speci men Type: BLOOD SPECIMEN Ordering Facility: [facility] Address: [address] [place] [address] Performed By: #### 2 4323-8, 51869-8, 2777-1 #### [facility] CLIA [id number] [address] [place] [address] [place] NURSING PROGon 01-27-2025 NURSING PROG HNO ID: [id number] Author: WILLIAM THIBODEAUX RN Service: Nursing Author Type: Registered Nurse Type: Nursing Progress Note Filed: 01/27/2025 19:35 Note Text: Other: Blood pressure 89/41, patient denies dizziness/chest pain. notified. 500 cc bolus given. Repeat blood pressure 107/63. Normal [facility] PT EDon 01-27-2025 PT ED HNO ID: [id number] Author: NELI GUTIERREZ, ANDER Service: Nursing Author Type: Registered Nurse Type: Patient Education Filed: 01/27/2025 07:54 Note Text: AMBULATORY PATIENT EDUCATION TOPIC: Survival Skills: SURVIVAL SKILLS: Procedure READINESS TO LEARN COGNITIVE ABILITY: Alert and oriented MOTIVATION TO LEARN: Interested FAMILY SUPPORT: Unable to assess - Family not present INSTRUCTION PROVIDED TO: Patient PATIENT LEARNS BEST BY: Verbal Instruction FACTORS AFFECTING LEARNING: None PHYSICAL LIMITATIONS AFFECTING LEARNING: None LEARNING RESPONSE DIAGNOSIS: Hydronephrosis METHOD OF INSTRUCTION: Verbal instruction PATIENT / FAMILY RESPONSE: Information received as demonstrated by interest and questions FOLLOW-UP PLAN: Complete - No need for follow-up SUPPLEMENTAL MATERIAL: None REFERRAL (RECOMMENDATION): None Electronically Signed By: Neli Gutierrez RN In Department: HOSP MAIN G062 Normal [facility] PT panel Coag (PPP)on 2024 INR Coag (PPP) [Relative time] 1.0 {INR} Normal 0.9-1.3 [facility] Comment on above: Order Comment: Specconstanza martin Type: BLOOD SPECIMEN Ordering Facility: [facility] Address: [address] [place] [address] Result Comment: Kenzie min K Antagonist (VKA) Therapeutic Range: INR 2 to 3 (Target INR of 2.5) Note: For patients treated with VKA drugs, such as warfarin, the [place] [employer] 2012 Guideline recommends a therapeutic INR range of 2 to 3 (target INR of 2.5). This recommendation includes high-risk patients with antiphospholipid syndrome with previous arterial or venous thromboembolism, current-generation mechanical or bioprosthetic aortic heart valve replacement. Note: Patients with mechanical aortic valve replacement and additional risk factors for thromboembolic events (atrial fibrillation, previous thromboembolism, LV dysfunction, hypercoagulable conditions) or an older generation mechanical AVR (i.e., ball in-Cage) or any mechanical MVR should have a INR therapeutic range of 2.5 to 3.5 (target INR of 3). Franklyn GH, et al. Chest 2012, 141:7S-47S Aline RA, et al. [facility] 2017, 70: 252-289 Performed By: #### 1 1253-2 #### [facility] CLIA [id number] [address] [place] [address] [place] PT Coag (PPP) [Time] 11.0 s Normal 9.7-13.0 [facility] Comment on above: Order Comment: Speci men Type: BLOOD SPECIMEN Ordering Facility: [facility] Address: [address] [place] [address] Performed By: #### 1 1253-2 #### [facility] CLIA [id number] [address] [place], [place] [id number] [place] Phosphate SerPl-mCncon 01-27 Phosphate [Mass/Vol] 5.5 mg/dL High 2.7-4.8 [facility] Comment on above: Order Comment: Speci men Type: BLOOD SPECIMEN Ordering Facility: [facility] Address: [address] [place] [address] Performed By: #### 2 4323-8, 51591-1, 2777-1 #### [facility] CLIA [id number] [address] [place] [address] [place] Potassium measurement (mass/ volume)Ordered By: Yony Solis on 01-27-2025 Potassium (Unsp spec) [Mass/Vol] 4.6 mmol/L 3.3-5.1 [facility] STAPHYLOCOCCUS AUREUS AND MR SA SCREEN, PCR, NASALon 01-27-2025 S. aureus and MRSA panel CARMEN+probe (Nose) Not detected Normal Not Detected [facility] Comment on above: Order Comment: Speci men Type: BLOOD SPECIMEN Ordering Facility: [facility] Address: [address] [place] [address] Performed By: #### 2 4321-2 #### [facility] CLIA [id number] [address] [place] [address] [place] Serum creatinine measurement (mass/volume)Ordered By: Yony Solis on 01-27-2025 Creatinine [Mass/Vol] 10.50 mg/dL High 0.70-1.20 [facility] Comment on above: Critical Result(s) C alled at: 0222 by: RUDY ALFRED Results read back by same. Serum glucose measurement (m ass/volume)Ordered By: Yony Solis on 01-27-2025 Glucose [Mass/Vol] 116 mg/dL High 70-99 [facility] Serum or plasma calcium regi urement (mass/volume)Ordered By: Yony Solis on 01-27-2025 Calcium [Mass/Vol] 8.2 mg/dL 7.6-11.0 [facility] Serum or plasma urea nitroge n measurement (mass/volume)Ordered By: Yony Solis on 01-27-2025 Urea nitrogen [Mass/Vol] 90 mg/dL High 4-19 [facility] Sodium levelOrdered By: Yony Solis on 01-27-2025 Sodium [Moles/Vol] 126 mmol/L Low 133-145 [facility] TYPE + SCREENon 01-27-2025 ABO A Normal [facility] Comment on above: Order Comment: Gabriel martin Type: BLOOD SPECIMENOrdering Facility: [facility] Address: [address] [place] [address] Performed By: #### T SCR ####[facility] BLOOD BANKCLIA [id number] [place] [address] [place] Rh Nom (Bld) Positive Normal [facility] Comment on above: Order Comment: Gabriel martin Type: BLOOD SPECIMENOrdering Facility: [facility] Address: [address] [place] [address] Performed By: #### T SCR ####[facility] BLOOD BANKCLIA [id number] [place] [address] [place] TYPE AND SCREEN EXPIRATION 01/30/2025 23:59 Normal [facility] Comment on above: Order Comment: Gabriel martin Type: BLOOD SPECIMENOrdering Facility: [facility] Address: [address] [place] [address] Performed By: #### T SCR ####[facility] MA[facility] BLOOD BANKCLIA [id number] [place] [address] [place] Tacrolimus Bld-mCncon 2024 Tacrolimus (Bld) [Mass/Vol] 13.4 ng/mL Normal 5.0-20.0 [facility] Comment on above: Order Comment: Gabriel martin Type: BLOOD SPECIMENOrdering Facility: [facility] Address: [address] [place] [address] Result Comment: Eileen vidualized target levels for a given patient will depend on many factors (including the type of organ transplant, time since transplantation, concurrent medications, and other clinical factors), and should be assessed by those health care providers experienced in the management of immunosuppression. Reference ranges and high/low indicator flags are provided as general guidelines only. The treating physician must determine appropriate target levels/dosing based on the specific clinical situation. Test performed by chemiluminescent immunoassay using [employer] i. Performed By: #### 5 8410-2, 84722-2 ####[facility] [id number] [place] [address] [place] Urinalysis complete panel (U )on 01-27-2025 Bacteria LM.HPF (Urine sed) [#/Area] Negative Normal Negative [facility] Comment on above: Order Comment: Speci men Type: BLOOD SPECIMEN Ordering Facility: [facility] Address: [address] [place] [address] Performed By: #### 1 1253-2 #### [facility] CLIA [id number] [address] [place] [address] [place] Bilirubin Ql (U) 2+ Abnormal Negative [facility] Comment on above: Order Comment: Speci men Type: BLOOD SPECIMEN Ordering Facility: [facility] Address: [address] [place] [address] Result Comment: Sugg est correlation with clinical findings and serum bilirubin if clinically indicated. Performed By: #### 1 1253-2 #### [facility] CLIA [id number] [address] [place] [address] [place] Clarity (Unsp spec) Turbid Abnormal Clear [facility] Comment on above: Order Comment: Speci men Type: BLOOD SPECIMEN Ordering Facility: [facility] Address: [address] [place] [address] Performed By: #### 1 1253-2 #### [facility] CLIA [id number] [address] [place] [address] [place] Color (U) Red Abnormal Yellow [facility] Comment on above: Order Comment: Speci men Type: BLOOD SPECIMEN Ordering Facility: [facility] Address: [address] [place] [address] Performed By: #### 1 1253-2 #### [facility] CLIA [id number] [address] [place] [address] [place] Epithelial cells LM.HPF (Urine sed) [#/Area] None Seen Normal [facility] Comment on above: Order Comment: Speci men Type: BLOOD SPECIMEN Ordering Facility: [facility] Address: [address] [place] [address] Performed By: #### 1 1253-2 #### [facility] CLIA [id number] [address] [place] [address] [place] Glucose Test strip (U) [Mass/Vol] Negative Normal Negative [facility] Comment on above: Order Comment: Speci men Type: BLOOD SPECIMEN Ordering Facility: [facility] Address: [address] [place] [address] Performed By: #### 1 1253-2 #### [facility] CLIA [id number] [address] [place] [address] [place] Hemoglobin Ql (U) 3+ Abnormal Negative [facility] Comment on above: Order Comment: Speci men Type: BLOOD SPECIMEN Ordering Facility: [facility] Address: [address] [place] [address] Performed By: #### 1 1253-2 #### [facility] CLIA [id number] [address] [place] [address] [place] Hyaline casts (Urine sed) [#/Area] 0 /[LPF] Normal 0 /LPF [facility] Comment on above: Order Comment: Speci men Type: BLOOD SPECIMEN Ordering Facility: [facility] Address: [address] [place] [address] Performed By: #### 1 1253-2 #### [facility] CLIA [id number] [address] [place] [address] [place] Ketones Ql (U) Negative Normal Negative [facility] Comment on above: Order Comment: Speci men Type: BLOOD SPECIMEN Ordering Facility: [facility] Address: [address] [place] [address] Performed By: #### 1 1253-2 #### [facility] CLIA [id number] [address] [place] [address] [place] Leukocyte esterase Test strip Ql (U) 2+ Abnormal Negative [facility] Comment on above: Order Comment: Speci men Type: BLOOD SPECIMEN Ordering Facility: [facility] Address: [address] [place] [address] Performed By: #### 1 1253-2 #### [facility] CLIA [id number] [address] [place] [address] [place] Nitrite Ql (U) Positive Abnormal Negative [facility] Comment on above: Order Comment: Speci men Type: BLOOD SPECIMEN Ordering Facility: [facility] Address: [address] [place] [address] Performed By: #### 1 1253-2 #### [facility] CLIA [id number] [address] [place] [address] [place] pH (U) 5.0 [pH] Normal <8.5 [facility] Comment on above: Order Comment: Speci men Type: BLOOD SPECIMEN Ordering Facility: [facility] Address: [address] [place] [address] Performed By: #### 1 1253-2 #### [facility] CLIA [id number] [address] [place] [address] [place] Protein (U) [Mass/Vol] 3+ Abnormal Negative [facility] Comment on above: Order Comment: Speci men Type: BLOOD SPECIMEN Ordering Facility: [facility] Address: [address] [place] [address] Performed By: #### 1 1253-2 #### [facility] CLIA [id number] [address] [place] [address] [place] RBC LM.HPF (Urine sed) [#/Area] /[HPF] Abnormal 0-2 /HPF [facility] Comment on above: Order Comment: Speci men Type: BLOOD SPECIMEN Ordering Facility: [facility] Address: [address] [place] [address] Performed By: #### 1 1253-2 #### [facility] CLIA [id number] [address] [place] [address] [place] Specific gravity (U) [Rel density] 1.017 Normal 1.005-1.030 [facility] Comment on above: Order Comment: Speci men Type: BLOOD SPECIMEN Ordering Facility: [facility] Address: [address] [place] [address] Performed By: #### 1 1253-2 #### [facility] CLIA [id number] [address] [place] [address] [place] Urobilinogen Ql (U) 0.2 EU/dL Normal 0.2-1.0 EU/dL [facility] Comment on above: Order Comment: Speci men Type: BLOOD SPECIMEN Ordering Facility: [facility] Address: [address] [place] [address] Performed By: #### 1 1253-2 #### [facility] CLIA [id number] [address] [place] [address] [place] WBC LM.HPF (Urine sed) [#/Area] 0-5 /HPF Normal 0-5 /HPF [facility] Comment on above: Order Comment: Speci men Type: BLOOD SPECIMEN Ordering Facility: [facility] Address: [address] [place] [address] Performed By: #### 1 1253-2 #### [facility] CLIA [id number] [address] [place] [address] [place] Urine Cultureon 01-27-2025 URC Culture exhibits no growth. Normal [facility] Comment on above: Performed By: #### L 500.2500, L100.0100 #### [facility] [address] [place], [address] aPTT PPPon 01-27-2025 aPTT Coag (PPP) [Time] 27.0 s Normal 23.0-32.4 [facility] Comment on above: Order Comment: Speci men Type: BLOOD SPECIMEN Ordering Facility: [facility] Address: [address] [place] [address] Performed By: #### 1 1253-2 #### [facility] CLIA [id number] [address] [place] [address] [place] [address] [place] 12 Lead EKGon 01-26-2025 12 Lead EKG [facility] Cardiovascular Services [address] [place] [address] 12 Lead EKG 01/26/25 1652 MR#: [id number] Acct: [id number] Name: ITALO BURGOS Rep #: [id number] : 1970 54 From: Tylor Rudd MD Attending Dr: Status: DEP ER Ordering Dr: Yony Solis DO Date: 01/26/25 Location: ED Sex: M C Admitted: Test Reason : SOB Blood Pressure : */* mmHG Vent. Rate : 71 BPM Atrial Rate : 71 BPM P-R Int : 228 ms QRS Dur : 128 ms QT Int : 434 ms P-R-T Axes : 38 -40 9 degrees QTcB Int : 471 ms Sinus rhythm with 1st degree A-V block Left axis deviation Non-specific intra-ventricular conduction block Minimal voltage criteria for LVH, may be normal variant ( [place] product ) Cannot rule out Septal infarct Abnormal ECG Confirmed by TYLOR RUDD MD ([id number]), editor managing director JEANETTE MARQUEZ ([id number]) on 01/27/2025 10:36:28 AM Referred By: Confirmed By: TYLOR RUDD MD 01/27/25 1036 Date Tylor Rudd MD CC: Dr. Zaida Gaston MD; Dr. Yony Solis DO Signed Normal [facility] Abdomen/Pelvis without Conto n 01-26-2025 Abdomen/Pelvis without Cont [facility] Imaging Services [address] [place] [address] Abdomen/Pelvis without Cont MR#: [id number] Acct: [id number] Name: ITALO BURGOS Rep #: [id number] : 1970 M 54 From: Gen Jack MD PCP: Dr. Zaida Gaston MD Status: REG ER Study: Abdomen/Pelvis without Cont Date of Exam: 01/08 Exam# [id number] Ordering Dr: Yony Solis DO PROCEDURE: ABDOMEN/PELVIS WITHOUT CONT 01/26/2025 REASON FOR EXAM: RIGHT SIDE ABD PAIN TECHNIQUE: Abdomen and pelvis CT without intravenous contrast. Noncontrast technique limits evaluation of the abdominal and pelvic viscera. Coronal and Sagittal reconstruction series were provided. One or more dose reduction techniques were used (e.g., Automated exposure control, adjustment of the mA and/or kV according to patient size, use of iterative reconstruction technique). COMPARISON: None. FINDINGS: Mild anasarca. Lung bases: Clear Liver: Normal size. No obvious mass. Gallbladder: Surgically absent. Spleen: Normal size. Pancreas: Normal size. No surrounding inflammation. Adrenals: Normal. Kidneys: Severely atrophic [place] kidneys. Right pelvic transplanted kidney transplanted right kidney ureter 10 mm calculus with severe upstream hydroureteronephrosis. Transplant kidney perinephric stranding which may represent back pressure. Bladder: Markedly concentrically thickened wall. Reproductive Organs: Unremarkable Bowel: Appendix: Lymph nodes: Vasculature: Peritoneum / Retroperitoneum: Mild atherosclerosis. Small volume ascites. Bones: CT/Abdomen/Pelvis without Cont IMPRESSION: 1. Transplanted right kidney obstructing ureteral calculus with myulacls-gr-izpgoz upstream hydroureteronephrosis. 2. Severely thickened urinary bladder wall suspicious for cystitis. 3. Severely atrophic [place] kidneys. 4. Anasarca. 5. Small volume ascites. OVERALL FINAL ASSESSMENT: . LI-RADS is not meant to be used in patients <18 years or patients with cirrhosis due to congenital hepatic fibrosis or due to vascular disorders, because these patients have a lower chance of developing HCC. Reading Location: [id number] CC: Dr. Zaida Gaston MD; Dr. Yony Solis DO Tutorial Laboratory Supervisor: Signed Normal [facility] Absolute lymphocyte countOrd ered By: ED PROVIDER on 01-26-2025 Lymphocytes Auto (Unsp spec) [#/Vol] 0.56 10*3/uL Low 0.83-4.51 [facility] Absolute neutrophil countOrd ered By: ED PROVIDER on 01-26-2025 Neutrophils (Bld) [#/Vol] 8.1 10*3/uL High 2.0-7.7 [facility] Amorphous sediment detection in urine sediment by light microscopyOrdered By: Yony Solis on 01-26-2025 Amorphous sediment LM Ql (Urine sed) 1+ [facility] Automated blood erythrocyte countOrdered By: ED PROVIDER on 01-26-2025 RBC (Bld) [#/Vol] 4.14 10*6/uL Low 4.6-6.2 [facility] Comment on above: Performed By: #### L 100.0100 #### [facility] [address] [place], [address] Automated blood hematocrit ( percentage)Ordered By: ED PROVIDER on 01-26-2025 Hematocrit (Bld) [Volume fraction] 37.1 % Low 40-54 [facility] Comment on above: Performed By: #### L 100.0100 #### [facility] [address] [place], [address] Automated lymphocyte count a s percentage of total leukocytesOrdered By: ED PROVIDER on 01-26-2025 Lymphocytes/100 WBC Auto (Unsp spec) 5.9 % Low 19-41 [facility] Basic Metabolic Profile (BMP )on 01-26-2025 BUN/CRE 9.4 RATIO Low 10-20 [facility] Comment on above: Performed By: #### L 500.2500 ####[facility] [address] [place], [address] Calcium [Mass/Vol] 5.6 mg/dL Invalid Interpretation Code 7.6-11.0 [facility] Comment on above: Result Comment: Crit ical Result(s) Called at: 2341 by: RUDY KELLEY TO SYDNEE DOUGHERTY??Results read back by same. Performed By: #### L 500.2500 ####[facility] [address] [place], [address] Chloride [Moles/Vol] 108 mmol/L Normal 98-108 [facility] Comment on above: Performed By: #### L 500.2500 ####[facility] [address] [place], [address] CO2 [Moles/Vol] 13.1 mmol/L Low 21.0-32.0 [facility] Comment on above: Performed By: #### L 500.2500 ####[facility] [address] [place], [address] Creatinine [Mass/Vol] 7.23 mg/dL High 0.70-1.20 [facility] Comment on above: Performed By: #### L 500.2500 ####[facility] [address] [place], [address] ECRCL 12.21 ml/min Low 50-250 [facility] Comment on above: Performed By: #### L 500.2500 ####[facility] [address] [place], [address] GAP 13 Normal 5-15 [facility] Comment on above: Performed By: #### L 500.2500 ####[facility] [address] [place], [address] GFR/1.73 sq M.predicted among non-blacks MDRD (S/P/Bld) [Vol rate/Area] 8 mL/min/{1.73_m2} Low >60 [facility] Comment on above: Result Comment: mL/m in/1.73m2 CKD-EPI Creatinine Equation (2020) Performed By: #### L 500.2500 ####[facility] [address] [place], [address] Glucose [Mass/Vol] 225 mg/dL High 70-99 [facility] Comment on above: Performed By: #### L 500.2500 ####[facility] [address] [place], [address] Potassium [Moles/Vol] 3.0 mmol/L Low 3.3-5.1 [facility] Comment on above: Performed By: #### L 500.2500 ####[facility] [address] [place], [address] Sodium [Moles/Vol] 133 mmol/L Normal 133-145 [facility] Comment on above: Performed By: #### L 500.2500 ####[facility] [address] [place], [address] Urea nitrogen [Mass/Vol] 68 mg/dL High 4-19 [facility] Comment on above: Performed By: #### L 500.2500 ####[facility] [address] [place], [address] BUN/CRE 8.9 RATIO Low 10-20 [facility] Comment on above: Performed By: #### L 500.2500 #### [facility] [address] [place], [address] Calcium [Mass/Vol] 7.0 mg/dL Low 7.6-11.0 [facility] Comment on above: Performed By: #### L 500.2500 #### [facility] [address] [place], [address] Chloride [Moles/Vol] 79 mmol/L Low 98-108 [facility] Comment on above: Performed By: #### L 500.2500 #### [facility] [address] [place], [address] CO2 [Moles/Vol] 13.8 mmol/L Low 21.0-32.0 [facility] Comment on above: Performed By: #### L 500.2500 #### [facility] [address] [place], [address] Creatinine [Mass/Vol] 8.95 mg/dL Invalid Interpretation Code 0.70-1.20 [facility] Comment on above: Result Comment: Crit ical Result(s) Called at: by:??Results read back by same. Critical Result(s) Called ASCHAFER at: 2155 by: BWORKMAN??Results read back by same. Performed By: #### L 500.2500 #### [facility] [address] [place], [address] ECRCL 9.87 ml/min Invalid Interpretation Code 50-250 [facility] Comment on above: Performed By: #### L 500.2500 #### [facility] [address] [place], [address] GAP 25 High 5-15 [facility] Comment on above: Performed By: #### L 500.2500 #### [facility] [address] [place], [address] GFR/1.73 sq M.predicted among non-blacks MDRD (S/P/Bld) [Vol rate/Area] 6 mL/min/{1.73_m2} Low >60 [facility] Comment on above: Result Comment: mL/m in/1.73m2 CKD-EPI Creatinine Equation (2020) Performed By: #### L 500.2500 #### [facility] [address] [place], [address] Glucose [Mass/Vol] 877 mg/dL Invalid Interpretation Code 70-99 [facility] Comment on above: Result Comment: Crit ical Result(s) Called ASCHAFER at: 5 by: BWORKMAN??Results read back by same. Performed By: #### L 500.2500 #### [facility] [address] [place], [address] Potassium [Moles/Vol] 4.3 mmol/L Normal 3.3-5.1 [facility] Comment on above: Performed By: #### L 500.2500 #### [facility] [address] [place], [address] Sodium [Moles/Vol] 117 mmol/L Invalid Interpretation Code 133-145 [facility] Comment on above: Result Comment: Crit ical Result(s) Called ASCHAFER at: 2155 by: SOUTH??Results read back by same. Performed By: #### L 500.2500 #### [facility] [address] [place], [address] Urea nitrogen [Mass/Vol] 80 mg/dL High 4-19 [facility] Comment on above: Performed By: #### L 500.2500 #### [facility] [address] [place], [address] BUN/CRE 8.9 RATIO Low 10-20 [facility] Comment on above: Performed By: #### L 500.2500 ####[facility] [address] [place], [address] Calcium [Mass/Vol] 7.5 mg/dL Low 7.6-11.0 [facility] Comment on above: Performed By: #### L 500.2500 ####[facility] [address] [place], [address] Chloride [Moles/Vol] 90 mmol/L Low 98-108 [facility] Comment on above: Performed By: #### L 500.2500 ####[facility] [address] [place], [address] CO2 [Moles/Vol] 14.3 mmol/L Low 21.0-32.0 [facility] Comment on above: Performed By: #### L 500.2500 ####[facility] [address] [place], [address] Creatinine [Mass/Vol] 9.55 mg/dL Invalid Interpretation Code 0.70-1.20 [facility] Comment on above: Result Comment: Crit ical Result(s) Called LSPARR at: 2012 by: SOUTH??Results read back by same. Performed By: #### L 500.2500 ####[facility] [address] [place], [address] ECRCL 9.25 ml/min Invalid Interpretation Code 50-250 [facility] Comment on above: Performed By: #### L 500.2500 ####[facility] [address] [place], [address] GAP 17 High 5-15 [facility] Comment on above: Performed By: #### L 500.2500 ####[facility] [address] [place], [address] GFR/1.73 sq M.predicted among non-blacks MDRD (S/P/Bld) [Vol rate/Area] 6 mL/min/{1.73_m2} Low >60 [facility] Comment on above: Result Comment: mL/m in/1.73m2 CKD-EPI Creatinine Equation (2020) Performed By: #### L 500.2500 ####[facility] [address] [place], [address] Glucose [Mass/Vol] 699 mg/dL Invalid Interpretation Code 70-99 [facility] Comment on above: Result Comment: Crit ical Result(s) Called ACOLE at: 1949 by: SOUTH??Results read back by same. Performed By: #### L 500.2500 ####[facility] [address] [place], [address] Potassium [Moles/Vol] 4.8 mmol/L Normal 3.3-5.1 [facility] Comment on above: Performed By: #### L 500.2500 ####[facility] [address] [place], [address] Sodium [Moles/Vol] 121 mmol/L Low 133-145 [facility] Comment on above: Performed By: #### L 500.2500 ####[facility] [address] [place], [address] Urea nitrogen [Mass/Vol] 85 mg/dL High 4-19 [facility] Comment on above: Performed By: #### L 500.2500 ####[facility] [address] [place], [address] BUN/CRE 8.7 RATIO Low 10-20 [facility] Comment on above: Performed By: #### L 500.2500, L100.0100 #### [facility] [address] [place], [address] Calcium [Mass/Vol] 8.5 mg/dL Normal 7.6-11.0 [facility] Comment on above: Performed By: #### L 500.2500, L100.0100 #### [facility] [address] [place], [address] Chloride [Moles/Vol] 83 mmol/L Low 98-108 [facility] Comment on above: Performed By: #### L 500.2500, L100.0100 #### [facility] [address] [place], [address] CO2 [Moles/Vol] 17.6 mmol/L Low 21.0-32.0 [facility] Comment on above: Performed By: #### L 500.2500, L100.0100 #### [facility] [address] [place], [address] Creatinine [Mass/Vol] 10.30 mg/dL Invalid Interpretation Code 0.70-1.20 [facility] Comment on above: Result Comment: Crit ical Result(s) Called at: by:??Results read back by same. Critical Result(s) Called ACOLE at: 1646 by: BWORKMAN??Results read back by same. Performed By: #### L 500.2500, L100.0100 #### [facility] [address] [place], [address] ECRCL 8.57 ml/min Invalid Interpretation Code 50-250 [facility] Comment on above: Performed By: #### L 500.2500, L100.0100 #### [facility] [address] [place], [address] GAP 17 High 5-15 [facility] Comment on above: Performed By: #### L 500.2500, L100.0100 #### [facility] [address] [place], [address] GFR/1.73 sq M.predicted among non-blacks MDRD (S/P/Bld) [Vol rate/Area] 5 mL/min/{1.73_m2} Low >60 [facility] Comment on above: Result Comment: mL/m in/1.73m2 CKD-EPI Creatinine Equation (2020) Performed By: #### L 500.2500, L100.0100 #### [facility] [address] [place], [address] Glucose [Mass/Vol] 838 mg/dL Invalid Interpretation Code 70-99 [facility] Comment on above: Result Comment: Crit ical Result(s) Called ACOLE at:1646 by: VappsORKMAN??Results read back by same. Performed By: #### L 500.2500, L100.0100 #### [facility] [address] [place], [address] Potassium [Moles/Vol] 5.7 mmol/L High 3.3-5.1 [facility] Comment on above: Performed By: #### L 500.2500, L100.0100 #### [facility] [address] [place], [address] Sodium [Moles/Vol] 118 mmol/L Invalid Interpretation Code 133-145 [facility] Comment on above: Result Comment: Crit ical Result(s) Called ACOLE at:1646 by: SOUTH??Results read back by same. Performed By: #### L 500.2500, L100.0100 #### [facility] [address] [place], [address] Urea nitrogen [Mass/Vol] 90 mg/dL High 4-19 [facility] Comment on above: Performed By: #### L 500.2500, L100.0100 #### [facility] [address] [place], [address] Basophil percentageOrdered B y: ED PROVIDER on 01-26-2025 Basophils/100 WBC (Bld) 0.2 % Normal 0-1 [facility] Comment on above: Performed By: #### L 100.0100 #### [facility] [address] [place], [address] Bedside Glucoseon 01-26-2025 FINGERSTICK GLU > 500 Invalid Interpretation Code 74-106 [facility] Comment on above: Result Comment: Dr Cholo shafer Followed MANAGEMENT OF PATIENT CARE PER NURSING PROTOCOL Performed By: #### L 501.080 ####[facility] [address] [place], [address] FINGERSTICK GLU > 500 Invalid Interpretation Code 74-106 [facility] Comment on above: Result Comment: Dr Cholo shafer Followed MANAGEMENT OF PATIENT CARE PER NURSING PROTOCOL Performed By: #### L 501.080 ####[facility] [address] [place], [address] Beta-Hydroxbytyrateon 2024 BETA-HYDROXYBUT 0.7 mmol/L Normal 0.0-0.3 [facility] Comment on above: Performed By: #### L 501.6901 ####[facility] [address] [place], [address] Bilirubin Test strip Ql (U)O rdered By: Yony Solis on 01-26-2025 Bilirubin Ql (U) Negative Negative [facility] Bilirubin directOrdered By: Yony Solis on 01-26-2025 Bilirubin.direct [Mass/Vol] 0.30 mg/dL Normal 0.00-0.30 [facility] Comment on above: Order Comment: BMP D ONE AT 1600 Performed By: #### L 501.2450, L500.3400 #### [facility] [address] [place], [address] Bilirubin, totalOrdered By: Yony Solis on 01-26-2025 Bilirubin [Mass/Vol] 0.58 mg/dL Normal 0.00-1.30 [facility] Comment on above: Order Comment: BMP D ONE AT 1600 Performed By: #### L 501.2450, L500.3400 #### [facility] [address] [place], [address] CBC W/Diff, Automatedon 05-2 0-2024 Absolute Lymph 0.56 X10 3/uL Low 0.83-4.51 [facility] Comment on above: Performed By: #### L 100.0100 #### [facility] [address] [place], [address] Absolute Neut 8.1 X10 3/uL High 2.0-7.7 [facility] Comment on above: Performed By: #### L 100.0100 #### [facility] [address] [place], [address] IG% 0.500 Normal 0.0-0.9 [facility] Comment on above: Result Comment: IG% - Immature Granulocytes (promyelocytes, myelocytes and metamyelocytes) > 1% indicates that a LEFT SHIFT is Present. Performed By: #### L 100.0100 #### [facility] [address] [place], [address] Lymphocytes/100 WBC (Bld) 5.9 % Low 19-41 [facility] Comment on above: Performed By: #### L 100.0100 #### [facility] [address] [place], [address] Nucleated RBC (Bld) [#/Vol] 0 10*3/uL Normal 0-5 [facility] Comment on above: Performed By: #### L 100.0100 #### [facility] [address] [place], [address] RDW SD 38.0 fl Normal 35.1-43.9 [facility] Comment on above: Performed By: #### L 100.0100 #### [facility] [address] [facility] [place], [address] CO2 (BldV) [Moles/Vol]Ordere d By: Yony Solis on 01-26-2025 CO2 [Moles/Vol] 18 mmol/L Low 23-33 [facility] Chest PA and Lateralon 01-26 Chest PA and Lateral [facility] Imaging Services [address] [facility] [place] [address] Chest PA and Lateral MR#: [id number] Acct: [id number] Name: ITALO BRUGOS Rep #: [id number] : 1970 M 54 From: Gen Jack MD PCP: Dr. Zaida Gaston MD Status: REG ER Study: Chest PA and Lateral Date of Exam: 01/26/25 Exam# [id number] Ordering Dr: Yony Solis DO PROCEDURE: CHEST PA AND LATERAL 01/26/2025 REASON FOR EXAM: COUGH TECHNIQUE: Frontal and lateral views of the chest. COMPARISON: None. FINDINGS: Hardware: None. Heart: Heart size is mildly enlarged. Mediastinum: The mediastinal contour is unremarkable. Lungs: The lungs are clear. Bones: The bones are unremarkable. RAD/Chest PA and Lateral IMPRESSION: NO ACUTE FINDINGS. Reading Location: [place] [address] CC: Dr. Zaida Gaston MD; Dr. Yony Solis DO Tutorial Laboratory Supervisor: Signed Normal [facility] Emergency Department Summary on 01-26-2025 Emergency Department Summary [facility] Medical Records Department [address] [place] [address] Emergency Department Summary 01/26/25 MR#: [id number] Acct: [id number] Name: ITALO BURGOS Rep #: [id number] : 1970 54 From: Yony Underwood PCP: Dr. Zaida Gaston MD Status:DEP ER Location: ED HPI History of Present Illness Chief Complaint: Hyperglycemia Informant: patient Narrative Narrative: Brought in by EMS from the correction I day history weakness dizziness. He is renal transplant recipient with diabetes history. He states sugars usually run 180s on insulin sliding scale only 50 units for breakfast 30 units for lunch and 50 units for dinner. He last ate breakfast and gave himself insulin then. Dealing with right side abdominal pain for last couple weeks. Nausea without vomiting. No diarrhea. Appendectomy in the past. Also had a cough for last 2 weeks. No urine frequency increasing thirst. He is followed by [facility] transplant, he states he is taking his medications. He has been in the correction for 4 months. Blood glucose 583 by EMS. [facility] Medical History Congestive heart failure (CHF) Diabetic foot ulcer Gas gangrene of foot Necrotizing fasciitis Diabetic foot infection Type 2 diabetes mellitus with diabetic polyneuropathy 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 exposed Vision loss of left eye Respiratory failure Hypoxemia COVID-19 COVID-19 Type 2 diabetes mellitus with diabetic polyneuropathy Cellulitis of left lower limb Pulmonary edema Dyspnea Fistula ( 12/2018) History of left heart catheterization (LHC) ( 06/26/11) Atherosclerotic heart disease of [place] coronary artery without angina pectoris Essential hypertension Problem with dialysis access Chronic renal failure, stage 5 Vision problems Pneumonia Kidney stones Kidney failure Anasarca associated with disorder of kidney Autonomic neuropathy Hypoglycemia Acute hypoxemic respiratory failure Acute on chronic diastolic CHF (congestive heart failure) Retention, urine Obesity (BMI 30-39.9) Acute respiratory failure with hypoxia Hypokalemia Noncompliance Diabetic neuropathy Diabetic nephropathy Diabetic retinopathy ILDA (acute kidney injury) Hypertensive emergency Chewing tobacco nicotine dependence GERD (gastroesophageal reflux disease) Anxiety and depression Diabetes mellitus type II, uncontrolled Blind left eye HLD (hyperlipidemia) Right leg pain Chronic ulcer of 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 Cellulitis and abscess of right leg History of acute myocardial infarction Home Medications ???Medication ???Instructions ???Recorded ???Last Taken ???Type pantoprazole 20 mg tablet,delayed 20 mg PO DAILY gerd 09/18/2101/08 History release (Protonix) prednisone 5 mg tablet 5 mg PO DAILY steroid 09/18/21 History tacrolimus 1 mg tablet,extended 1 mg PO DAILY rejection med 01/26/25 History release 24 hr (Envarsus XR) cholecalciferol (vitamin D3) 25 25 mcg PO FR SUPPLEMENT' 12/26/21 01/22/25 History mcg (1,000 unit) capsule (Vitamin D3) losartan 25 mg tablet 25 mg PO DAILY BP 09/05/22 5 History acetaminophen 500 mg tablet 500 mg PO Q4H PRN Pain 11/01/22 History aspirin 81 mg chewable tablet 81 mg PO DAILY HEALTH 11/01/22 History gabapentin 100 mg capsule 100 mg PO QHS NERVE PAIN 11/01/22 01/24/25 History atenolol 100 mg tablet 100 mg PO DAILY 03/14/23 01/26/25 History bupropion HCl 75 mg tablet 75 mg PO DAILY 03/24/24 01/26/25 H istory fluoxetine 10 mg capsule 10 mg PO DAILY 03/24/24 Unknown Hi story insulin lispro protamine-lispro See Rx Instructions subcut .tid Unknown Rx 100 unit/mL (50-50) subcutaneous with meals #42 mL pen (Humalog Mix 50-50 KwikPen) Trulicity 4.5 mg/0.5 mL 4.5 mg (0.5 mL) subcut QWEEK #6 mL 07/17/24 01/21/25 Rx subcutaneous pen injector (dulaglutide) metoclopramide HCl 5 mg tablet 5 mg PO Q6H PRN vertigo #10 tabs 11/19/24 01/26/25 Rx (Reglan) bupropion HCl 300 mg 24 hr tablet, 300 mg PO DAILY 01/26/25 Unknown History extended release carvedilol 25 mg tablet 25 mg PO BID 01/26/25 Unknown Hist ory mycophenolate sodium 180 mg 360 mg PO BID 01/26/25 Unknown His tory tablet,delayed release sulfamethoxazole 400 1 tab PO MOWEFR 01/26/25 Unknown H istory mg-trimethoprim 80 mg tablet Allergy/AdvReac Type Severity Reaction Status Date / Time No Known Allergies Allergy Verified 01/26/25 15:47 Family History Mother Heart disease Hypertension Father Cancer Brother Cancer Diabetes Sister Diabetes Other Alcohol abuse Depression H/O transfusion of whole blood Kidney disease (more content not included)... Normal [facility] Eosinophil percentageOrdered By: ED PROVIDER on 01-26-2025 Eosinophils/100 WBC (Bld) 0.0 % Normal 0-5 [facility] Comment on above: Performed By: #### L 100.0100 #### [facility] [address] [place], [place], [address] Erythrocyte distribution wid th ratioOrdered By: ED PROVIDER on 01-26-2025 Erythrocyte distribution width (RBC) [Ratio] 11.7 % Normal 11.6-14.6 [facility] Comment on above: Performed By: #### L 100.0100 #### [facility] [address] [place], [place], [address] Erythrocyte distribution wid th standard deviationOrdered By: ED PROVIDER on 01-26-2025 Erythrocyte distribution width (RBC) [Ratio] 38.0 fl 35.1-43.9 [facility] Glucoseon 01-26-2025 Glucose [Mass/Vol] 699 mg/dL Invalid Interpretation Code 70-99 [facility] Comment on above: Result Comment: Crit ical Result(s) Called ACOLE at: 1949 by: SOUTH??Results read back by same. Performed By: #### L 501.0100 #### [facility] [address] [place], [place], [address] Hemoglobin measurementOrdere d By: ED PROVIDER on 01-26-2025 Hemoglobin (Bld) [Mass/Vol] 12.9 g/dL Low 13.0-16.5 [facility] Comment on above: Performed By: #### L 100.0100 #### [facility] [address] [place], [address] Immature granulocytes/100 WB C Auto (Bld)Ordered By: ED PROVIDER on 01-26-2025 Immature granulocytes/100 WBC (Bld) 0.500 % 0.0-0.9 [facility] Comment on above: IG% - Immature Granu locytes (promyelocytes, myelocytes and metamyelocytes) > 1% indicates that a LEFT SHIFT is Present. Ketones Test strip Ql (U)Ord ered By: Yony Solis on 01-26-2025 Ketones Ql (U) Negative Negative [facility] Lipase measurementOrdered By : Yony Solis on 01-26-2025 Lipase [Catalytic activity/Vol] 48 U/L Normal 13-75 [facility] Comment on above: Please note:LIPASE r evised reference range effective 22. New Lipase methodology. Expected to produce lower values than the previous assay method. NEW Reference Range: 13 - 75 U/L Result Comment: Plea note: LIPASE revised reference range effective 22. New Lipase methodology. Expected to produce lower values than the previous assay method. NEW Reference Range: 13 - 75 U/L Performed By: #### L 501.2450, L500.3400 #### [facility] [address] [place], [address] Liver Profileon 01-26-2025 ALK PHOS 120 U/L Normal 40-129 [facility] Comment on above: Order Comment: BMP D ONE AT 1600 Performed By: #### L 501.2450, L500.3400 #### [facility] [address] [place], [address] T PROT 5.7 g/dL Low 5.9-8.4 [facility] Comment on above: Order Comment: BMP D ONE AT 1600 Performed By: #### L 501.2450, L500.3400 #### [facility] [address] [place], [address] Liver ProfileOrdered By: Brien Solis on 01-26-2025 AST [Catalytic activity/Vol] 9 U/L Normal <=37 [facility] Comment on above: Order Comment: BMP D ONE AT 1600 Performed By: #### L 501.2450, L500.3400 #### [facility] [address] [place], [address] MCV (mean corpuscular volume ) determinationOrdered By: ED PROVIDER on 01-26-2025 MCV (RBC) [Entitic vol] 89.6 fL Normal 80-94 [facility] Comment on above: Performed By: #### L 100.0100 #### [facility] [address] [place], [address] Mean corpuscular hemoglobin (MCH) determinationOrdered By: ED PROVIDER on 01-26-2025 MCH (RBC) [Entitic mass] 31.2 pg Normal 27.0-32.0 [facility] Comment on above: Performed By: #### L 100.0100 #### [facility] [address] [place], [address] Mean corpuscular hemoglobin concentration (MCHC) determinationOrdered By: ED PROVIDER on 01-26-2025 MCHC (RBC) [Mass/Vol] 34.8 g/dL Normal 32-36 [facility] Comment on above: Performed By: #### L 100.0100 #### [facility] [address] [place], [address] Mean platelet volume determi nationOrdered By: ED PROVIDER on 01-26-2025 Platelet mean volume (Bld) [Entitic vol] 9.9 fL Normal 6.2-12.0 [facility] Comment on above: Performed By: #### L 100.0100 #### [facility] [address] [place], [address] Microscopic analysis of urin e for red blood cells (RBC)Ordered By: Yony Solis on 01-26-2025 Microscopic analysis of urine for red blood cells (RBC) 5-10 SEEN /hpf 0-5 [facility] Monocyte percentageOrdered B y: ED PROVIDER on 01-26-2025 Monocytes/100 WBC (Bld) 8.2 % Normal 0-10 [facility] Comment on above: Performed By: #### L 100.0100 #### [facility] [address] [place], [address] Mucus LM Ql (Urine sed)Order ed By: Yony Solis on 01-26-2025 Mucus Ql (Urine sed) 0 SEEN /hpf [facility] Neutrophil percentageOrdered By: ED PROVIDER on 01-26-2025 Neutrophils/100 WBC (Bld) 85.2 % High 47-70 [facility] Comment on above: Performed By: #### L 100.0100 #### [facility] [address] [place], [address] Nitrite Test strip Ql (U)Ord ered By: Yony Solis on 01-26-2025 Nitrite Ql (U) Negative Negative [facility] No Panel InformationOrdered By: Yony Solis on 01-26-2025 Blood Gas Sample Site Not entered [facility] Blood Gas Specimen Type ANTHONY [facility] Oxygen Delivery Device Room Air [facility] Nucleated red blood cell per centageOrdered By: ED PROVIDER on 01-26-2025 Nucleated RBC/100 WBC (Bld) [Ratio] 0 % 0-5 [facility] Platelet countOrdered By: ED PROVIDER on 01-26-2025 Platelets (Bld) [#/Vol] 168 10*3/uL Normal 150-450 [facility] Comment on above: Performed By: #### L 100.0100 #### [facility] [address] [place], [address] Protein Test strip Ql (U)Ord ered By: Yony Solis on 01-26-2025 Protein Ql (U) 30 mg/dl High Negative [facility] Serum globulin measurementOr dered By: Yony Solis on 01-26-2025 Globulin (S) [Mass/Vol] 2.7 g/dL Normal 2.2-4.2 [facility] Comment on above: Order Comment: BMP D ONE AT 1600 Performed By: #### L 501.2450, L500.3400 #### [facility] [address] [place], [address] Serum or plasma alanine andrade otransferase (ALT) measurementOrdered By: Yony Solis on 01-26-2025 ALT [Catalytic activity/Vol] 12 U/L Normal <=46 [facility] Comment on above: Order Comment: BMP D ONE AT 1600 Performed By: #### L 501.2450, L500.3400 #### [facility] [address] [place], [address] Serum or plasma albumin regi urement (mass/volume)Ordered By: Yony Solis on 01-26-2025 Albumin [Mass/Vol] 3.0 g/dL Low 3.5-5.0 [facility] Comment on above: Order Comment: BMP D ONE AT 1600 Performed By: #### L 501.2450, L500.3400 #### [facility] [address] [place], [address] Serum or plasma alkaline cindi sphatase measurementOrdered By: Yony Solis on 01-26-2025 ALP [Catalytic activity/Vol] 120 U/L 40-129 [facility] Squamous epithelial cells de tection in urine sediment by light microscopyOrdered By: Yony Solis on 01-26-2025 Epithelial cells.squamous LM Ql (Urine sed) 0 SEEN /hpf 0-5 [facility] Total proteinOrdered By: Brien Solis on 01-26-2025 Protein [Mass/Vol] 5.7 g/dL Low 5.9-8.4 [facility] Urinalysis, Completeon 01-26 AMORPHOUS 1+ Normal [facility] Comment on above: Order Comment: CLEAN CATCH Performed By: #### L 500.2500, L100.0100 #### [facility] [address] [place], [address] RBC 5-10 SEEN Normal 0-5 [facility] Comment on above: Order Comment: CLEAN CATCH Performed By: #### L 500.2500, L100.0100 #### [facility] [address] [place], [address] WBC 10-25 SEEN Normal 0-5 [facility] Comment on above: Order Comment: CLEAN CATCH Performed By: #### L 500.2500, L100.0100 #### [facility] [address] [place], [address] BACTERIA 0 SEEN Normal None Seen [facility] Comment on above: Order Comment: CLEAN CATCH Performed By: #### L 500.2500, L100.0100 #### [facility] [address] [place], [address] EPI,SQUAMOUS 0 SEEN Normal 0-5 [facility] Comment on above: Order Comment: CLEAN CATCH Performed By: #### L 500.2500, L100.0100 #### [facility] [address] [place], [address] Mucus Ql (Urine sed) 0 SEEN Normal [facility] Comment on above: Order Comment: CLEAN CATCH Performed By: #### L 500.2500, L100.0100 #### [facility] [address] [place], [address] Urine clarityOrdered By: Brien Solis on 01-26-2025 Clarity (U) Sl. Cloudy Clear [facility] Urine color determinationOrd ered By: Yony Solis on 01-26-2025 Color (U) Yellow Yellow [facility] Urine cultureOrdered By: Brien Solis on 01-26-2025 Bacteria identified Cx Nom (U) Culture exhibits no growth. [facility] Urine glucose detectionOrder ed By: Yony Solis on 01-26-2025 Glucose Ql (U) 1000 mg/dl High Normal [facility] Urine leukocyte esterase det ection by dipstickOrdered By: Yony Solis on 01-26-2025 Leukocyte esterase Test strip Ql (U) 25 /ul High Negative [facility] Urine pHOrdered By: Yony Solis on 01-26-2025 pH (U) 6.0 [pH] 5.0 - 8.0 [facility] Urine sediment bacteria coun t by microscopy (number/high power field)Ordered By: Yony Solis on 01-26-2025 Bacteria LM.HPF (Urine sed) [#/Area] 0 /[HPF] None Seen [facility] Urine specific gravity measu rementOrdered By: Yony Solis on 01-26-2025 Specific gravity (U) [Rel density] 1.015 1.002-1.030 [facility] Urine urobilinogen measureme ntOrdered By: Yony Solis on 01-26-2025 Urobilinogen Ql (U) Normal mg/dl Normal [facility] Venous Blood Gason Blood Gas Type ANTHONY Normal [facility] Comment on above: Performed By: #### L 9000.0810 ####[facility] [address] [place], [address] CO2 [Moles/Vol] 18 mmol/L Low 23-33 [facility] Comment on above: Performed By: #### L 9000.0810 ####[facility] [address] [place], [address] HCO3 (Bld) [Moles/Vol] 17 mmol/L Low 22-26 [facility] Comment on above: Performed By: #### L 9000.0810 ####[facility] [address] [place], [address] O2 Delivery Dev Room Air [facility] Comment on above: Performed By: #### L 9000.0810 ####[facility] [address] [place], [address] SITE Not entered [facility] Comment on above: Performed By: #### L 9000.0810 ####[facility] [address] [place], [address] VBG BE -10 mmol/L Low -1.0-3.5 [facility] Comment on above: Performed By: #### L 9000.0810 ####[facility] [address] [place], [address] VBG pCO2 36.2 mmHg Low 41-51 [facility] Comment on above: Performed By: #### L 9000.0810 ####[facility] [address] [place], [address] VBG pH 7.27 Low 7.32-7.42 [facility] Comment on above: Performed By: #### L 9000.0810 ####[facility] [address] [place], [address] VBG PO2 35 mmHg Normal 25-40 [facility] Comment on above: Performed By: #### L 9000.0810 ####[facility] [address] [place], [address] VBG SO2 61 Normal 50-70 [facility] Comment on above: Performed By: #### L 9000.0810 ####[facility] [address] [place], [address] Venous blood base excess nicki surementOrdered By: Yony Solis on 01-26-2025 Base excess Calc (BldV) [Moles/Vol] -10 mmol/L Low -1.0-3.5 [facility] Venous blood bicarbonate nicki surementOrdered By: Yony Solis on 01-26-2025 HCO3 (Bld) [Moles/Vol] 17 mmol/L Low 22-26 [facility] Venous blood oxygen saturati on measurementOrdered By: Yony Solis on 01-26-2025 Oxygen saturation in Blood 61 % 50-70 [facility] Venous blood pH measurementO rdered By: Yony Solis on 01-26-2025 pH (BldV) 7.27 [pH] Low 7.32-7.42 [facility] Venous blood partial pressur e of carbon dioxide measurementOrdered By: Yony oSlis on 01-26-2025 CO2 (BldV) [Partial pressure] 36.2 mm[Hg] Low 41-51 [facility] Venous blood partial pressur e of oxygen measurementOrdered By: Yony Solis on 01-26-2025 Oxygen (BldV) [Partial pressure] 35 mm[Hg] 25-40 [facility] White blood cell (WBC) count Ordered By: ED PROVIDER on 01-26-2025 WBC (Bld) [#/Vol] 9.5 10*3/uL Normal 4.4-11.0 [facility] Comment on above: Performed By: #### L 100.0100 #### [facility] [address] [place], [address] White blood cell countOrdere d By: Yony Solis on 01-26-2025 White blood cell count 10-25 SEEN /hpf 0-5 [facility] 25(OH)D3 SerPl-mCncon 2024 25-hydroxyvitamin D3 [Mass/Vol] 16.7 ng/mL Low 31.0-80.0 [facility] Comment on above: Order Comment: Gabriel martin Type: BLOOD SPECIMEN Ordering Facility: [facility] Address: [address] [place] [address] Result Comment: Clas sification of 25 [place] Vitamin D status: Deficiency/Insufficiency: < or = 30 ng/ml. Sufficiency/Optimal Levels: 31-80 ng/mL Toxicity: > 100 ng/mL. Test performed by chemiluminescent immunoassay. Performed By: #### 2 4321-2 #### [facility] CLIA [id number] [address] [place] [address] [place] ALBUMIN/CREATININE RATIO, UR INEon 01-01-2025 Albumin DL <= 20 mg/L (U) [Mass/Vol] 18.3 mg/L Normal [facility] Comment on above: Order Comment: Gabriel martin Type: BLOOD SPECIMEN Ordering Facility: [facility] Address: [address] [place] [address] Performed By: #### 1 1253-2 #### [facility] CLIA [id number] [address] [place] [address] [place] Albumin/Creatinine (U) [Mass ratio] 42 mg/g High <30 [facility] Comment on above: Order Comment: Speci men Type: BLOOD SPECIMEN Ordering Facility: [facility] Address: [address] [place] [address] Result Comment: Adul t Male and Female Nephrotic Criteria: <30 mg/g is considered normal to mildly increased 30-300 mg/g is considered moderately increased >300 mg/g is considered severely increased KDIGO. (2013). KDIGO 2012 Clinical Practice Guideline for the Evaluation and Management of Chronic Kidney Disease. Official Journal of the International Society of Nephrology, 3(1), 1-150. Performed By: #### 1 1253-2 #### [facility] CLIA [id number] [address] [place] [address] [place] Creatinine (U) [Mass/Vol] 43.4 mg/dL Normal 20.0-300.0 [facility] Comment on above: Order Comment: Speci men Type: BLOOD SPECIMEN Ordering Facility: [facility] Address: [address] [place] [address] Performed By: #### 1 1253-2 #### [facility] CLIA [id number] [address] [place] [address] [place] CBC W Auto Differential pane l (Bld)on 01-01-2025 Basophils (Bld) [#/Vol] 10*3/uL Normal <0.11 [facility] Comment on above: Order Comment: Speci men Type: BLOOD SPECIMEN Ordering Facility: [facility] Address: [address] [place] [address] Performed By: #### 2 4321-2 #### [facility] CLIA [id number] [address] [place] [address] [place] Basophils/100 WBC (Bld) 0.3 % Normal [facility] Comment on above: Order Comment: Speci men Type: BLOOD SPECIMEN Ordering Facility: [facility] Address: [address] [place] [address] Performed By: #### 2 4321-2 #### [facility] CLIA [id number] [address] [place] [address] [place] Differential cell count method Nom (Bld) Auto Normal [facility] Comment on above: Order Comment: Speci men Type: BLOOD SPECIMEN Ordering Facility: [facility] Address: [address] [place] [address] Performed By: #### 2 4321-2 #### [facility] CLIA [id number] [address] [place] [address] [place] Eosinophils (Bld) [#/Vol] 0.04 10*3/uL Normal <0.46 [facility] Comment on above: Order Comment: Speci men Type: BLOOD SPECIMEN Ordering Facility: [facility] Address: [address] [place] [address] Performed By: #### 2 4321-2 #### [facility] CLIA [id number] [address] [place] [address] [place] Eosinophils/100 WBC (Bld) 0.7 % Normal [facility] Comment on above: Order Comment: Speci men Type: BLOOD SPECIMEN Ordering Facility: [facility] Address: [address] [place] [address] Performed By: #### 2 4321-2 #### [facility] CLIA [id number] [address] [place] [address] [place] Erythrocyte distribution width (RBC) [Ratio] 11.5 % Normal 11.5-15.0 [facility] Comment on above: Order Comment: Speci men Type: BLOOD SPECIMEN Ordering Facility: [facility] Address: [address] [place] [address] Performed By: #### 2 4321-2 #### [facility] CLIA [id number] [address] [place] [address] [place] Hematocrit (Bld) [Volume fraction] 46.6 % Normal 39.0-51.0 [facility] Comment on above: Order Comment: Speci men Type: BLOOD SPECIMEN Ordering Facility: [facility] Address: [address] [place] [address] Performed By: #### 2 4321-2 #### [facility] CLIA [id number] [address] [place] [address] [place] Hemoglobin (Bld) [Mass/Vol] 16.1 g/dL Normal 13.0-17.0 [facility] Comment on above: Order Comment: Speci men Type: BLOOD SPECIMEN Ordering Facility: [facility] Address: [address] [place] [address] Performed By: #### 2 4321-2 #### [facility] CLIA [id number] [address] [place] [address] [place] Immature granulocytes (Bld) [#/Vol] 0.03 10*3/uL Normal <0.10 [facility] Comment on above: Order Comment: Speci men Type: BLOOD SPECIMEN Ordering Facility: [facility] Address: [address] [place] [address] Performed By: #### 2 4321-2 #### [facility] CLIA [id number] [address] [place] [address] [place] Immature granulocytes/100 WBC (Bld) 0.5 % Normal [facility] Comment on above: Order Comment: Speci men Type: BLOOD SPECIMEN Ordering Facility: [facility] Address: [address] [place] [address] Performed By: #### 2 4321-2 #### [facility] CLIA [id number] [address] [place] [address] [place] Lymphocytes (Bld) [#/Vol] 1.38 10*3/uL Normal 1.00-4.00 [facility] Comment on above: Order Comment: Speci men Type: BLOOD SPECIMEN Ordering Facility: [facility] Address: [address] [place] [address] Performed By: #### 2 4321-2 #### [facility] CLIA [id number] [address] [place] [address] [place] Lymphocytes/100 WBC (Bld) 23.0 % Normal [facility] Comment on above: Order Comment: Speci men Type: BLOOD SPECIMEN Ordering Facility: [facility] Address: [address] [place] [address] Performed By: #### 2 4321-2 #### [facility] CLIA [id number] [address] [place] [address] [place] MCH (RBC) [Entitic mass] 31.0 pg Normal 26.0-34.0 [facility] Comment on above: Order Comment: Speci men Type: BLOOD SPECIMEN Ordering Facility: [facility] Address: [address] [place] [address] Performed By: #### 2 4321-2 #### [facility] CLIA [id number] [address] [place] [address] [place] MCHC (RBC) [Mass/Vol] 34.5 g/dL Normal 30.5-36.0 [facility] Comment on above: Order Comment: Speci men Type: BLOOD SPECIMEN Ordering Facility: [facility] Address: [address] [place] [address] Performed By: #### 2 4321-2 #### [facility] CLIA [id number] [address] [place] [address] [place] MCV (RBC) [Entitic vol] 89.6 fL Normal 80.0-100.0 C [facility] Comment on above: Order Comment: Speci men Type: BLOOD SPECIMEN Ordering Facility: [facility] Address: [address] [place] [address] Performed By: #### 2 4321-2 #### [facility] CLIA [id number] [address] [place] [address] [place] Monocytes (Bld) [#/Vol] 0.46 10*3/uL Normal <0.87 [facility] Comment on above: Order Comment: Speci men Type: BLOOD SPECIMEN Ordering Facility: [facility] Address: [address] [place] [address] Performed By: #### 2 4321-2 #### [facility] CLIA [id number] [address] [place] [address] [place] Monocytes/100 WBC (Bld) 7.7 % Normal [facility] Comment on above: Order Comment: Speci men Type: BLOOD SPECIMEN Ordering Facility: [facility] Address: [address] [place] [address] Performed By: #### 2 4321-2 #### [facility] CLIA [id number] [address] [place] [address] [place] Neutrophils (Bld) [#/Vol] 4.06 10*3/uL Normal 1.45-7.50 [facility] Comment on above: Order Comment: Speci men Type: BLOOD SPECIMEN Ordering Facility: [facility] Address: [address] [place] [address] Performed By: #### 2 4321-2 #### [facility] CLIA [id number] [address] [place] [address] [place] Neutrophils/100 WBC (Bld) 67.8 % Normal [facility] Comment on above: Order Comment: Speci men Type: BLOOD SPECIMEN Ordering Facility: [facility] Address: [address] [place] [address] Performed By: #### 2 4321-2 #### [facility] CLIA [id number] [address] [id number] [address] [place] Nucleated RBC (Bld) [#/Vol] 10*3/uL Normal <0.01 [facility] Comment on above: Order Comment: Speci men Type: BLOOD SPECIMEN Ordering Facility: [facility] Address: [address] [place] [address] Performed By: #### 2 4321-2 #### [facility] CLIA [id number] [address] [place] [address] [place] Nucleated RBC/100 WBC (Bld) [Ratio] 0.0 /100 WBC Normal [facility] Comment on above: Order Comment: Speci men Type: BLOOD SPECIMEN Ordering Facility: [facility] Address: [address] [place] [address] Performed By: #### 2 4321-2 #### [facility] CLIA [id number] [address] [place] [address] [place] Platelet mean volume (Bld) [Entitic vol] 10.3 fL Normal 9.0-12.7 [facility] Comment on above: Order Comment: Speci men Type: BLOOD SPECIMEN Ordering Facility: [facility] Address: [address] [place] [address] Performed By: #### 2 4321-2 #### [facility] CLIA [id number] [address] [place] [address] [place] Platelets (Bld) [#/Vol] 168 10*3/uL Normal 150-400 [facility] Comment on above: Order Comment: Speci men Type: BLOOD SPECIMEN Ordering Facility: [facility] Address: [address] [place] [address] Performed By: #### 2 4321-2 #### [facility] CLIA [id number] [address] [place] [address] [place] RBC (Bld) [#/Vol] 5.20 10*6/uL Normal 4.20-6.00 [facility] Comment on above: Order Comment: Speci men Type: BLOOD SPECIMEN Ordering Facility: [facility] Address: [address] [place] [address] Performed By: #### 2 4321-2 #### [facility] CLIA [id number] [address] [place] [address] [place] WBC (Bld) [#/Vol] 5.99 10*3/uL Normal 3.70-11.00 [facility] Comment on above: Order Comment: Speci men Type: BLOOD SPECIMEN Ordering Facility: [facility] Address: [address] [place] [address] Performed By: #### 2 4321-2 #### [facility] CLIA [id number] [address] [place] [address] [place] Comprehensive metabolic 2000 panelon 01-01-2025 Albumin [Mass/Vol] 4.0 g/dL Normal 3.9-4.9 [facility] Comment on above: Order Comment: Speci men Type: BLOOD SPECIMEN Ordering Facility: [facility] Address: [address] [place] [address] Performed By: #### 1 1253-2 #### [facility] CLIA [id number] [address] [place] [address] [place] ALP [Catalytic activity/Vol] 145 U/L High 38-113 [facility] Comment on above: Order Comment: Speci men Type: BLOOD SPECIMEN Ordering Facility: [facility] Address: [address] [place] [address] Performed By: #### 1 1253-2 #### [facility] CLIA [id number] [address] [place] [address] [place] ALT [Catalytic activity/Vol] 34 U/L Normal 10-54 [facility] Comment on above: Order Comment: Speci men Type: BLOOD SPECIMEN Ordering Facility: [facility] Address: [address] [place] [address] Performed By: #### 1 1253-2 #### [facility] CLIA [id number] [address] [place] [address] [place] Anion gap [Moles/Vol] 14 mmol/L Normal 8-15 [facility] Comment on above: Order Comment: Speci men Type: BLOOD SPECIMEN Ordering Facility: [facility] Address: [address] [place] [address] Performed By: #### 1 1253-2 #### [facility] CLIA [id number] [address] [place] [address] [place] AST [Catalytic activity/Vol] 20 U/L Normal 14-40 [facility] Comment on above: Order Comment: Speci men Type: BLOOD SPECIMEN Ordering Facility: [facility] Address: [address] [place] [address] Performed By: #### 1 1253-2 #### [facility] CLIA [id number] [address] [place] [address] [place] Bilirubin [Mass/Vol] 0.5 mg/dL Normal 0.2-1.3 [facility] Comment on above: Order Comment: Speci men Type: BLOOD SPECIMEN Ordering Facility: [facility] Address: [address] [place] [address] Performed By: #### 1 1253-2 #### [facility] CLIA [id number] [address] [place] [address] [place] Calcium [Mass/Vol] 9.6 mg/dL Normal 8.5-10.2 [facility] Comment on above: Order Comment: Speci men Type: BLOOD SPECIMEN Ordering Facility: [facility] Address: [address] [place] [address] Performed By: #### 1 1253-2 #### [facility] CLIA [id number] [address] [place], [place] [address] [place] Chloride [Moles/Vol] 96 mmol/L Low 98-107 [facility] Comment on above: Order Comment: Speci men Type: BLOOD SPECIMEN Ordering Facility: [facility] Address: [address] [place] [address] Performed By: #### 1 1253-2 #### [facility] CLIA [id number] [address] [place] [address] [place] CO2 [Moles/Vol] 21 mmol/L Low 22-30 [facility] Comment on above: Order Comment: Speci men Type: BLOOD SPECIMEN Ordering Facility: [facility] Address: [address] [place] [address] Performed By: #### 1 1253-2 #### [facility] CLIA [id number] [address] [place] [address] [place] Creatinine [Mass/Vol] 1.59 mg/dL High 0.73-1.22 [facility] Comment on above: Order Comment: Speci men Type: BLOOD SPECIMEN Ordering Facility: [facility] Address: [address] [place] [address] Performed By: #### 1 1253-2 #### [facility] CLIA [id number] [address] [place] [address] [place] Creatinine and Glomerular filtration rate.predicted panel (S/P/Bld) 51 mL/min/1.73m??? Low >=60 [facility] Comment on above: Order Comment: Speci men Type: BLOOD SPECIMEN Ordering Facility: [facility] Address: [address] [place] [address] Result Comment: Candace mated Glomerular Filtration Rate (eGFR) is calculated using the 2020 CKD-EPI creatinine equation. This equation utilizes serum creatinine, sex, and age as parameters. The creatinine assay has traceable calibration to isotope dilution-mass spectrometry. Refer to KDIGO guidelines for clinical interpretation. In patients with unstable renal function, e.g. those with acute kidney injury, the eGFR may not accurately reflect actual GFR. Performed By: #### 1 1253-2 #### [facility] CLIA [id number] [address] [place] [address] [place] Glucose [Mass/Vol] 488 mg/dL High 74-99 [facility] Comment on above: Order Comment: Specconstanza martin Type: BLOOD SPECIMEN Ordering Facility: [facility] Address: [address] [place] [address] Result Comment: The [place] [employer] (ADA) provides guidance for cutoff values for fasting glucose and random glucose. The ADA defines fasting as no caloric intake for at least 8 hours. Fasting plasma glucose results between 100 to 125 [...] Standards of Medical Care in Diabetes 2016, [place] [employer]. Diabetes Care. 2016.39(Suppl 1). Performed By: #### 1 1253-2 #### [facility] CLIA [id number] [address] [place] [address] [place] Potassium [Moles/Vol] 5.0 mmol/L Normal 3.7-5.1 [facility] Comment on above: Order Comment: Gabriel martin Type: BLOOD SPECIMEN [facility] [facility] Address: [address] [place] [address] Performed By: #### 1 1253-2 #### [facility] CLIA [id number] [address] [place] [address] [place] Protein [Mass/Vol] 6.5 g/dL Normal 6.3-8.0 [facility] Comment on above: Order Comment: Gabriel martin Type: BLOOD SPECIMEN Ordering Facility: [facility] Address: [address] [place] [address] Performed By: #### 1 1253-2 #### [facility] CLIA [id number] [address] [place] [address] [place] Sodium [Moles/Vol] 131 mmol/L Low 136-144 [facility] Comment on above: Order Comment: Gabriel martin Type: BLOOD SPECIMEN Ordering Facility: [facility] Address: [address] [place] [address] Performed By: #### 1 1253-2 #### [facility] CLIA [id number] [address] [place] [address] [place] Urea nitrogen [Mass/Vol] 25 mg/dL High 9-24 [facility] Comment on above: Order Comment: Gabriel martin Type: BLOOD SPECIMEN Ordering Facility: [facility] Address: [address] [place] [address] Performed By: #### 1 1253-2 #### [facility] CLIA [id number] [address] [place] [address] [place] HbA1c (Bld)on 01-01-2025 Average glucose Estimated from glycated hemoglobin (Bld) [Mass/Vol] 260 mg/dL Normal [facility] Comment on above: Order Comment: Gabriel martin Type: BLOOD SPECIMEN Ordering Facility: [facility] Address: [address] [place] [address] Result Comment: eAG: (Estimated average glucose) is a calculated value from HgbA1c and is customer care representative of the average blood glucose level in the last 2-3 month period. Performed By: #### 1 1253-2 #### [facility] CLIA [id number] [address] [place] [address] [place] HbA1c (Bld) [Mass fraction] 10.7 % High 4.3-5.6 [facility] Comment on above: Order Comment: Gabriel martin Type: BLOOD SPECIMEN Ordering Facility: [facility] Address: [address] [place] [address] Result Comment: Amer ican Diabetes Association guidelines indicate that patients with HgbA1c in the range 5.7-6.4% are at increased risk for development of diabetes, and intervention by lifestyle modification may be beneficial. HgbA1c greater or equal to 6.5% is considered diagnostic of diabetes. Performed By: #### 1 1253-2 #### [facility] CLIA [id number] [address] [place] [address] [place] Lipid 1996 panelon 5 Cholesterol [Mass/Vol] 202 mg/dL High <200 [facility] Comment on above: Order Comment: Mii men Type: BLOOD SPECIMEN Ordering Facility: [facility] Address: [address] [place] [address] Result Comment: <200 mg/dL, Desirable 200-239 mg/dL, Borderline high >239 mg/dL, High Performed By: #### 1 1253-2 #### [facility] CLIA [id number] [address] [place] [address] [place] Cholesterol in HDL [Mass/Vol] 48 mg/dL Normal >39 [facility] Comment on above: Order Comment: Gabriel men Type: BLOOD SPECIMEN Ordering Facility: [facility] Address: [address] [place] [address] Result Comment: 40-5 9 mg/dL, Acceptable >59 mg/dL, High: Negative risk factor for coronary heart disease <40 mg/dL, Low: Positive risk factor for coronary heart disease Performed By: #### 1 1253-2 #### [facility] CLIA [id number] [address] [place] [address] OF [facility] Cholesterol in LDL [Mass/Vol] 120 mg/dL High <100 [facility] Comment on above: Order Comment: Mii men Type: BLOOD SPECIMEN Ordering Facility: [facility] Address: [address] [place] [address] Result Comment: <100 mg/dL, Optimal 100-129 mg/dL, Near optimal/above optimal 130-159 mg/dL, Borderline high 160-189 mg/dL, High >189 mg/dL, Very high Secondary prevention optimal LDL Cholesterol levels are recommended to be <70 mg/dL LDL cholesterol is calculated using the Barnard-NIH equation. Performed By: #### 1 1253-2 #### [facility] CLIA [id number] [address] [place] [address] [place] Cholesterol in LDL/Cholesterol in HDL [Mass ratio] 2.50 {ratio} Normal <2.54 [facility] Comment on above: Order Comment: Gabriel martin Type: BLOOD SPECIMEN Ordering Facility: [facility] Address: [address] [place] [address] Result Comment: Claudine lopez: 1. National Cholesterol Education Program ATP III Guideline At-A-Glance Quick Desk Reference: National Heart, Lung, and Blood [place]. National Institutes of Health. 2001: NIH Publication No. 01-3305. 2. An International Atherosclerosis Society position paper: global recommendations for the management of dyslipidemia: executive summary, Atherosclerosis. 2014: 232(2):410-413. Performed By: #### 1 1253-2 #### [facility] CLIA [id number] [address] [place] [address] [place] Cholesterol in VLDL [Mass/Vol] 33 mg/dL High <30 [facility] Comment on above: Order Comment: Gabriel martin Type: BLOOD SPECIMEN Ordering Facility: [facility] Address: [address] [place] [address] Performed By: #### 1 1253-2 #### [facility] CLIA [id number] [address] [place] [address] [place] Cholesterol non HDL [Mass/Vol] 154 mg/dL High <130 [facility] Comment on above: Order Comment: Gabriel martin Type: BLOOD SPECIMEN Ordering Facility: [facility] Address: [address] [place] [address] Result Comment: <130 mg/dL, Optimal 130-159 mg/dL, Near optimal/above optimal 160-189 mg/dL, Borderline high 190-219 mg/dL, High >219 mg/dL, Very high Secondary prevention optimal non HDL Cholesterol levels are recommended to be <100 mg/dL Performed By: #### 1 1253-2 #### [facility] CLIA [id number] [address] [place] [address] [place] Cholesterol.total/Choles terol in HDL [Mass ratio] 4.21 {ratio} Normal <5.10 [facility] Comment on above: Order Comment: Speci men Type: BLOOD SPECIMEN Ordering Facility: [facility] Address: [address] [place] [address] Performed By: #### 1 1253-2 #### [facility] CLIA [id number] [address] [place] [address] OF [facility] FASTING TIME 14 hrs Normal [facility] Comment on above: Order Comment: Speci men Type: BLOOD SPECIMEN Ordering Facility: [facility] Address: [address] [place] [address] Performed By: #### 1 1253-2 #### [facility] CLIA [id number] [address] [place] [address] Triglyceride [Mass/Vol] 192 mg/dL High <150 [facility] Comment on above: Order Comment: Speci men Type: BLOOD SPECIMEN Ordering Facility: [facility] Address: [address] [place] [address] Result Comment: <150 mg/dL, Normal 150-199 mg/dL, Borderline high 200-499 mg/dL, High >499 mg/dL, Very high Performed By: #### 1 1253-2 #### [facility] CLIA [id number] [address] [place] [address] [place] TSH SerPl-aCncon 01-01-2025 TSH Qn 0.779 m[IU]/L Normal 0.270-4.200 [facility] Comment on above: Order Comment: Speci men Type: BLOOD SPECIMEN Ordering Facility: [facility] Address: [address] [place] [address] Performed By: #### 1 1253-2 #### [facility] CLIA [id number] [address] [place] [address] [place] CNOVon 12-30-2024 CNOV Office Visit (INTMWS ) ITALO BURGOS ([id number]) 1970 M Date Time Provider Department 12/30/24 4:20 PM OLDERDELIA INTAnithaWS During your visit today, we recorded the following information about you: Pulse Respiration Blood pressure Weight 94/minute 16/minute 118/68 79.8 kg 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 APRN.CNP 12/30/2024 5:44 PM Signed CC: Patient presents with: Diarrhea: Diarrhea HPI Italo Burgos is a 54 year old male who presents today for concerns of diarrhea. Has had issues with diarrhea after eating for the past 4 years since kidney transplant. Had colonoscopy last year and was ordered cholestyramine powder by the general surgeon to help with this. Was taking medicine for this but became homeless recently and had trouble getting his medicine. Has had a few accidents of his bowel at the homeless correction and has to be seen to be able to continue to stay there. One of these medications he has not had is his cholestyramine powder. Has been taking his transplant medications though. Denies fever, chills, body aches, sore throat, malaise, fatigue, cough,. Wheezing. Shortness of breath, nausea, vomiting, abdominal pain, or any other concerns. DIABETES MELLITUS: Mr. Burgos denies excessive thirst or increased frequency of urination, chest pain or dyspnea , numbness, tingling or pain in extremities, new or unusual visual symptoms, low sugar/hypoglycemic reactions, weight loss/gain, and lightheadedness/dizzine ss. Follows a diabetic diet some of the time. He is compliant with medication(s) and is tolerating med(s) without any side effects. He reports checking his glucose on a Cgm with typically in the 200s schedule . Follows with Dr. Durand and needs to make an appointment to see her. Patient's last HgA1C was Hemoglobin A1C (%) Date Value 11/26/2023 10.5 10/13/2022 8.6 07/11/2021 8.2 03/23/2021 7.5 Hemoglobin A1C (POCT) (%) Date Value 06/18/2024 7.1 07/13/2022 10.6 ) Last Ophthalmology exam was over a year ago. Needs to call [facility] to schedule. 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 Depression Detached retina DM type 2, goal HbA1c < 7% ([facility]) Erectile dysfunction, unspecified erectile dysfunction type ESRD (end stage renal disease) ([facility]) GERD (gastroesophageal reflux disease) Hyperlipidemia Kidney replaced by transplant Kidney stones LUANNE (obstructive sleep apnea) PNA (pneumonia) Proliferative retinopathy 02/10/2019 PTE (post-transplant erythrocytosis) Snoring Unspecified essential hypertension Vitamin D deficiency Vitamin D deficiency PAST SURGICAL HISTORY Procedure Laterality Date AMPUTATION TOE,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 08/08/2018 Done at [facility] by Satish Phan MD CHOLECYSTECTOMY 1998 Cholecystectomy COLONOSCOPY 12/04/2018 COLONOSCOPY SCREENING 04/01/2024 CYSTO W/COMPLEX REMOVAL STONE AND STENT 1999 EGD 12/04/2018 EGD W/O [facility] SPEC VARICIES INJ 04/01/2024 PAST SURGICAL HISTORY OF Left 2012 AND 2014 removal eye fluid with instillation oil ALLERGIES Patient has no known allergies. MEDICATIONS sulfamethoxazole-trimet hoprim (BACTRIM) 400-80 mg per tablet Take 1 tablet by mouth every Saturday, Saturday, and Saturday. pantoprazole DR (PROTONIX) 20 mg tablet Take 1 tablet by mouth once daily. predniSONE (DELTASONE) 5 mg tablet Take 1 tablet by mouth once daily. buPROPion XL (WELLBUTRIN XL) 300 mg 24 hr tablet Take 1 tablet by mouth once daily. buPROPion (WELLBUTRIN) 75 mg tablet Take 1 tablet by mouth once daily. FLUoxetine (PROZAC) 10 mg capsule Take 1 capsule by mouth once daily. tacrolimus IR (PROGRAF) 1 mg capsule Take 2 caps in am and 1 cap in pm Blood-Glucose Meter,Continuous (DEXCOM G6 OFFICER CAPTAIN) misc 1 Each continuous. Blood-Glucose Sensor (DEXCOM G6 SENSOR) glenn 1 Each continuous. Blood-Glucose Transmitter (DEXCOM G6 TRANSMITTER) glenn 1 Each continuous. Cholestyramine, Bulk, powd Take one(1) scoop dissolved in two(2) to six(6) ounces(oz) of fluid by mouth daily. carvedilol (COREG) 25 mg tablet Take 1 tablet by mouth two times a day. losartan (COZAAR) 25 mg tablet Take 2 tablets by mouth once daily. mycophenolate sodium DR (MYFORTIC) 180 mg EC tablet Take 2 tablets by mouth two times a day. gabapentin (NEURONTIN) 100 mg capsule Take 1 capsule by mouth daily at bedtime for 180 days. loperamide (IMODIUM) 2 mg cap(s) Take 1 capsule by mouth four times a day as needed. Insulin Syringe-Needle U-100 1 mL 29 gauge x 1/2 1 Each as needed. For Intercavernal Injections pseudoephedrine (SUDAFED) 30 mg tablet Take Four 4 (30 mg) Tablets for an erection lasting more than 2 hours. If not improved in 1 hour MUST g (more content not included)... Normal [facility] Urine Cultureon 11-21-2024 URC Below infection leve l. Mixed Gram Positive Organisms [place] Count 1000-10,000 MIXC Mixed contaminants. Submit a new specimen if indicated. Normal [facility] Comment on above: Performed By: #### L 500.2500, L100.0100 #### [facility] [address] [place], [address] 12 Lead EKGon 11-19-2024 12 Lead EKG [facility] [address] [place] [address] 12 Lead EKG 11/19/24 1417 MR#: [id number] Acct: [id number] Name: BURGOSITALO FONG Mery Rep #: [id number] : 1970 53 From: Symone Albarado MD Attending Dr: Status: DEP ER Ordering Dr: Yony Solis DO Date: 11/19/24 Location: ED Sex: M C Admitted: Test Reason : CP Blood Pressure : */* mmHG Vent. Rate : 121 BPM Atrial Rate : 121 BPM P-R Int : 182 ms QRS Dur : 92 ms QT Int : 314 ms P-R-T Axes : 21 -61 51 degrees QTcB Int : 445 ms Sinus tachycardia with Fusion complexes Left anterior fascicular block Left ventricular hypertrophy ( Lane product , Romhilt-Rogers ) Anteroseptal infarct Abnormal ECG Confirmed by NARGIS NORTON, NICOLLE ([id number]), editor managing director JEANETTE MARQUEZ ([id number]) on 11/23/2024 10:57:26 AM Referred By: Yony Solis Confirmed By: NICOLLE ALBARADO MD 11/23/24 1057 Date Symone Albarado MD CC: Dr. Zaida Gaston MD; Dr. Yony Solis, DO Signed Normal [facility] Absolute lymphocyte countOrd ered By: Yony Solis on 11-19-2024 Lymphocytes Auto (Unsp spec) [#/Vol] 1.05 10*3/uL 0.83-4.51 [facility] Absolute neutrophil countOrd ered By: Yony Solis on 11-19-2024 Neutrophils (Bld) [#/Vol] 6.9 10*3/uL 2.0-7.7 [facility] Anion gap in Serum or Plasma Ordered By: Yony Solis on 11-19-2024 Anion gap [Moles/Vol] 16 mmol/L High 5-15 [facility] Automated lymphocyte count a s percentage of total leukocytesOrdered By: Yony Solis on 11-19-2024 Lymphocytes/100 WBC Auto (Unsp spec) 11.9 % Low 19-41 [facility] BUN/creatinine ratioOrdered By: Yony Solis on 11-19-2024 Urea nitrogen/Creatinine [Mass ratio] 15.5 mg/mg - [facility] Basic Metabolic Profile (BMP )on 11-19-2024 BUN/CRE 15.5 RATIO Normal 06-28 [facility] Comment on above: Performed By: #### L 500.2500, L100.0100 #### [facility] [place], [address] Calcium [Mass/Vol] 10.1 mg/dL Normal 7.6-11.0 [facility] Comment on above: Performed By: #### L 500.2500, L100.0100 #### [facility] [address] [place], [address] Chloride [Moles/Vol] 104 mmol/L Normal 98-108 [facility] Comment on above: Performed By: #### L 500.2500, L100.0100 #### [facility] [address] [place], [address] CO2 [Moles/Vol] 19.3 mmol/L Low 21.0-32.0 [facility] Comment on above: Performed By: #### L 500.2500, L100.0100 #### [facility] [address] [place], [address] Creatinine [Mass/Vol] 2.11 mg/dL High 0.70-1.20 [facility] Comment on above: Performed By: #### L 500.2500, L100.0100 #### [facility] [address] [place], [address] ECRCL 42.01 ml/min Low 50-250 [facility] Comment on above: Performed By: #### L 500.2500, L100.0100 #### [facility] [address] [place], [address] GAP 16 High 5-15 [facility] Comment on above: Performed By: #### L 500.2500, L100.0100 #### [facility] [address] [place], [address] GFR/1.73 sq M.predicted among non-blacks MDRD (S/P/Bld) [Vol rate/Area] 36 mL/min/{1.73_m2} Low >60 [facility] Comment on above: Result Comment: mL/m in/1.73m2 CKD-EPI Creatinine Equation (2020) Performed By: #### L 500.2500, L100.0100 #### [facility] [address] [place], [address] Glucose [Mass/Vol] 279 mg/dL High 70-99 [facility] Comment on above: Performed By: #### L 500.2500, L100.0100 #### [facility] [address] [place], [address] Potassium [Moles/Vol] 4.9 mmol/L Normal 3.3-5.1 [facility] Comment on above: Performed By: #### L 500.2500, L100.0100 #### [facility] [address] [place], [address] Sodium [Moles/Vol] 139 mmol/L Normal 133-145 [facility] Comment on above: Performed By: #### L 500.2500, L100.0100 #### [facility] [address] [place], [address] Urea nitrogen [Mass/Vol] 33 mg/dL High 4-19 [facility] Comment on above: Performed By: #### L 500.2500, L100.0100 #### [facility] [address] [place], [address] Basophil percentageOrdered B y: Yony Solis on 11-19-2024 Basophils/100 WBC (Bld) 0.5 % 0-1 [facility] Bilirubin Test strip Ql (U)O rdered By: Yony Solis on 11-19-2024 Bilirubin Ql (U) Negative Negative [facility] CBC W/Diff, Automatedon 11-07 Absolute Lymph 1.05 X10 3/uL Normal 0.83-4.51 [facility] Comment on above: Performed By: #### L 500.2500, L100.0100 #### [facility] [address] [place], [address] Absolute Neut 6.9 X10 3/uL Normal 2.0-7.7 [facility] Comment on above: Performed By: #### L 500.2500, L100.0100 #### [facility] [address] [place], [address] Basophils/100 WBC (Bld) 0.5 % Normal 0-1 [facility] Comment on above: Performed By: #### L 500.2500, L100.0100 #### [facility] [address] [place], [address] Eosinophils/100 WBC (Bld) 0.2 % Normal 0-5 [facility] Comment on above: Performed By: #### L 500.2500, L100.0100 #### [facility] [address] [place], [address] Erythrocyte distribution width (RBC) [Ratio] 12.0 % Normal 11.6-14.6 [facility] Comment on above: Performed By: #### L 500.2500, L100.0100 #### [facility] [address] [place], [address] Hematocrit (Bld) [Volume fraction] 51.2 % Normal 40-54 [facility] Comment on above: Performed By: #### L 500.2500, L100.0100 #### [facility] [address] [place], [address] Hemoglobin (Bld) [Mass/Vol] 17.7 g/dL High 13.0-16.5 [facility] Comment on above: Performed By: #### L 500.2500, L100.0100 #### [facility] [address] [place], [address] IG% 0.300 Normal 0.0-0.9 [facility] Comment on above: Result Comment: IG% - Immature Granulocytes (promyelocytes, myelocytes and metamyelocytes) > 1% indicates that a LEFT SHIFT is Present. Performed By: #### L 500.2500, L100.0100 #### [facility] [address] [place], [address] Lymphocytes/100 WBC (Bld) 11.9 % Low 19-41 [facility] Comment on above: Performed By: #### L 500.2500, L100.0100 #### [facility] [address] [place], [address] MCH (RBC) [Entitic mass] 31.3 pg Normal 27.0-32.0 [facility] Comment on above: Performed By: #### L 500.2500, L100.0100 #### [facility] [address] [place], [address] MCHC (RBC) [Mass/Vol] 34.6 g/dL Normal 32-36 [facility] Comment on above: Performed By: #### L 500.2500, L100.0100 #### [facility] [address] [place], [address] MCV (RBC) [Entitic vol] 90.6 fL Normal 80-94 [facility] Comment on above: Performed By: #### L 500.2500, L100.0100 #### [facility] [address] [place], [address] Monocytes/100 WBC (Bld) 9.2 % Normal 0-10 [facility] Comment on above: Performed By: #### L 500.2500, L100.0100 #### [facility] [address] [place], [address] Neutrophils/100 WBC (Bld) 77.9 % High 47-70 [facility] Comment on above: Performed By: #### L 500.2500, L100.0100 #### [facility] [address] [place], [address] Nucleated RBC (Bld) [#/Vol] 0 10*3/uL Normal 0-5 [facility] Comment on above: Performed By: #### L 500.2500, L100.0100 #### [facility] [address] [place], [address] Platelet mean volume (Bld) [Entitic vol] 9.9 fL Normal 6.2-12.0 [facility] Comment on above: Performed By: #### L 500.2500, L100.0100 #### [facility] [address] [place], [address] Platelets (Bld) [#/Vol] 231 10*3/uL Normal 150-450 [facility] Comment on above: Performed By: #### L 500.2500, L100.0100 #### [facility] [address] [place], [address] RBC (Bld) [#/Vol] 5.65 10*6/uL Normal 4.6-6.2 [facility] Comment on above: Performed By: #### L 500.2500, L100.0100 #### [facility] [address] [place], [address] RDW SD 39.8 fl Normal 35.1-43.9 [facility] Comment on above: Performed By: #### L 500.2500, L100.0100 #### [facility] [address] [place], [address] WBC (Bld) [#/Vol] 8.8 10*3/uL Normal 4.4-11.0 [facility] Comment on above: Performed By: #### L 500.2500, L100.0100 #### [facility] [address] [place], [address] Carbon dioxide, total [Moles /volume] in Central venous bloodOrdered By: Yony Solis on 11-19-2024 CO2 [Moles/Vol] 19.3 mmol/L Low 21.0-32.0 [facility] Chloride assayOrdered By: Aldair Solis on 11-19-2024 Chloride [Moles/Vol] 104 mmol/L 98-108 [facility] Emergency Department Summary on 11-19-2024 Emergency Department Summary [facility] Medical Records Department [address] [place] [address] Emergency Department Summary 11/19/24 MR#: [id number] Acct: [id number] Name: ITALO BURGOS Rep #: [id number] : 1970 53 From: Yony Underwood PCP: Dr. Zaida Gaston MD Status:DEP ER Location: ED HPI History of Present Illness Chief Complaint: Dizziness Informant: patient and EMS Narrative Narrative: Brought in by EMS, patient called reporting about dizziness feeling of drunkenness at noon while walking. No headache. No recent upper respiratory sinus symptoms. No cough no vomiting or diarrhea. He is a transplant patient with his kidneys 4 years ago on immunosuppressants. He is followed by [facility]. He has not had similar symptoms in the past. However states currently symptoms are subsiding. Diabetic hypertension history that led to his kidney failure. He is making normal urine output no dysuria. He states he does have increasing stress last 2 months with his significant other leaving him. Prior similar symptoms: No PFSH PFSH Medical History Congestive heart failure (CHF) Diabetic foot ulcer Gas gangrene of foot Necrotizing fasciitis Diabetic foot infection Type 2 diabetes mellitus with diabetic polyneuropathy 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 exposed Vision loss of left eye Respiratory failure Hypoxemia COVID-19 COVID-19 Type 2 diabetes mellitus with diabetic polyneuropathy Cellulitis of left lower limb Pulmonary edema Dyspnea Fistula ( 12/2018) History of left heart catheterization (LHC) ( 06/26/11) Atherosclerotic heart disease of [place] coronary artery without angina pectoris Essential hypertension Problem with dialysis access Chronic renal failure, stage 5 Vision problems Pneumonia Kidney stones Kidney failure Anasarca associated with disorder of kidney Autonomic neuropathy Hypoglycemia Acute hypoxemic respiratory failure Acute on chronic diastolic CHF (congestive heart failure) Retention, urine Obesity (BMI 30-39.9) Acute respiratory failure with hypoxia Hypokalemia Noncompliance Diabetic neuropathy Diabetic nephropathy Diabetic retinopathy ILDA (acute kidney injury) Hypertensive emergency Chewing tobacco nicotine dependence GERD (gastroesophageal reflux disease) Anxiety and depression Diabetes mellitus type II, uncontrolled Blind left eye HLD (hyperlipidemia) Right leg pain Chronic ulcer of 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 Cellulitis and abscess of right leg History of acute myocardial infarction Home Medications ???Medication ???Instructions ???Recorded ???Last Taken ???Type pantoprazole 20 mg tablet,delayed 20 mg PO DAILY gerd 09/18/2110/11 07:00 History release (Protonix) prednisone 5 mg tablet 5 mg PO DAILY steroid 09/18/21 07:00 History tacrolimus 1 mg tablet,extended 2 mg PO DAILY rejection med 03/14/23 History release 24 hr (Envarsus XR) cholecalciferol (vitamin D3) 25 50 mcg PO FR SUPPLEMENT' 12/26/21 10/26/22 History mcg (1,000 unit) capsule (Vitamin D3) losartan 25 mg tablet 25 mg PO DAILY BP 09/05/22 3 07:00 History acetaminophen 500 mg tablet 1,000 mg PO Q4H PRN Pain 11/01/22 10/31/22 History aspirin 81 mg chewable tablet 81 mg PO DAILY HEALTH 11/01/22 07:00 History gabapentin 100 mg capsule 100 mg PO QHS NERVE PAIN 11/01/22 10/31/22 History docusate sodium 100 mg capsule 100 mg PO DAILY PRN constipation 0 01/14/23 Unknown History (Colace) atenolol 100 mg tablet 100 mg PO DAILY 03/14/23 Unknown H istory bupropion HCl 75 mg tablet 75 mg PO .QID 03/24/24 Unknown His tory fluoxetine 10 mg capsule 10 mg PO QDAY PRN 03/24/24 Unknown History insulin lispro protamine-lispro See Rx Instructions subcut .tid Unknown Rx 100 unit/mL (50-50) subcutaneous with meals #42 mL pen (Humalog Mix 50-50 KwikPen) Trulicity 4.5 mg/0.5 mL 4.5 mg (0.5 mL) subcut QWEEK #6 mL 07/17/24 Unknown Rx subcutaneous pen injector (dulaglutide) metoclopramide HCl 5 mg tablet 5 mg PO Q6H PRN vertigo #10 tabs 11/19/24 Unknown Rx (Reglan) Allergy/AdvReac Type Severity Reaction Status Date / Time No Known Allergies Allergy Verified 11/19/24 14:23 Family History Mother Heart disease Hypertension Father Cancer Brother Cancer Diabetes Sister Diabetes Other Alcohol abuse Depression H/O transfusion of whole blood Kidney disease Surgical History Renal transplant recipient Kidney replaced by transplant History of artificial lens replacement History of arteriovenostomy for renal dialysis ( 08/2018) Status post insertion of dialy (more content not included)... Normal [facility] Eosinophil percentageOrdered By: Yony Solis on 11-19-2024 Eosinophils/100 WBC (Bld) 0.2 % 0-5 [facility] Epithelial cells.squamous LM Ql (Urine sed)Ordered By: Yony Solis on 11-19-2024 Epithelial cells.squamous LM.HPF (Urine sed) [#/Area] 0 /[HPF] 0-5 [facility] Erythrocyte distribution wid th ratioOrdered By: Yony Solis on 11-19-2024 Erythrocyte distribution width (RBC) [Ratio] 12.0 % 11.6-14.6 [facility] Erythrocyte distribution wid th standard deviationOrdered By: Yony Solis on 11-19-2024 Erythrocyte distribution width (RBC) [Entitic vol] 39.8 fL 35.1-43.9 [facility] Erythrocyte distribution width (RBC) [Ratio] 39.8 fl 35.1-43.9 [facility] Estimation of creatinine minnie aranceOrdered By: Yony Solis on 11-19-2024 Estimated Creatinine Clearance Calc 42.01 ml/min Low 50-250 [facility] GFR/1.73 sq M.predicted pete g non-blacks MDRD (S/P/Bld) [Vol rate/Area]Ordered By: Yony Solis on 11-19-2024 Estimated GFR (MDRD) Non-Af Amer 36 Low >60 [facility] Comment on above: mL/min/1.73m2 CKD-EP I Creatinine Equation (2020) Glomerular filtration rate ( GFR) estimation/1.73 sq m using serum, plasma, or whole bOrdered By: Yony Solis on 11-19-2024 GFR/1.73 sq M.predicted among non-blacks MDRD (S/P/Bld) [Vol rate/Area] 36 mL/min/{1.73_m2} Low >60 [facility] Comment on above: mL/min/1.73m2 CKD-EP I Creatinine Equation (2020) Glucose Ql (U)Ordered By: Aldair Solis on 11-19-2024 Glucose (U) [Mass/Vol] 1000 mg/dL High Normal [facility] Hematocrit Auto (Bld) [Volum e fraction]Ordered By: Yony Solis on 11-19-2024 Hematocrit (Bld) [Volume fraction] 51.2 % 40-54 [facility] Hemoglobin measurementOrdere d By: Yony Solis on 11-19-2024 Hemoglobin (Bld) [Mass/Vol] 17.7 g/dL High 13.0-16.5 [facility] Hyaline casts LM.LPF (Urine sed) [#/Area]Ordered By: Yony Solis on 11-19-2024 Hyaline casts (Urine sed) [#/Area] 0 /[LPF] 0-5 [facility] Hyaline casts LM Ql (Urine sed) 0-5 SEEN /lpf 0-5 [facility] Immature granulocytes/100 WB C Auto (Bld)Ordered By: Yony Solis on 11-19-2024 Immature granulocytes/100 WBC (Bld) 0.300 % 0.0-0.9 [facility] Comment on above: IG% - Immature Granu locytes (promyelocytes, myelocytes and metamyelocytes) > 1% indicates that a LEFT SHIFT is Present. Ketones Test strip Ql (U)Ord ered By: Yony Solis on 11-19-2024 Ketones Ql (U) Negative Negative [facility] Lymphocytes Auto (Unsp spec) [#/Vol]Ordered By: Yony Solis on 11-19-2024 Lymphocytes (Bld) [#/Vol] 1.05 10*3/uL 0.83-4.51 [facility] Lymphocytes/100 WBC Auto (Un sp spec)Ordered By: Yony Solis on 11-19-2024 Lymphocytes/100 WBC (Bld) 11.9 % Low 19-41 [facility] MCV (mean corpuscular volume ) determinationOrdered By: Yony Solis on 11-19-2024 MCV (RBC) [Entitic vol] 90.6 fL 80-94 [facility] Mean corpuscular hemoglobin (MCH) determinationOrdered By: Yony Solis on 11-19-2024 MCH (RBC) [Entitic mass] 31.3 pg 27.0-32.0 [facility] Mean corpuscular hemoglobin concentration (MCHC) determinationOrdered By: Yony Solis on 11-19-2024 MCHC (RBC) [Mass/Vol] 34.6 g/dL 32-36 [facility] Mean platelet volume determi nationOrdered By: Yony Solis on 11-19-2024 Platelet mean volume (Bld) [Entitic vol] 9.9 fL 6.2-12.0 [facility] Microscopic analysis of urin e for red blood cells (RBC)Ordered By: Yony Solis on 11-19-2024 Microscopic analysis of urine for red blood cells (RBC) 10-25 SEEN /hpf 0-5 [facility] Urine RBC 10-25 SEEN /hpf 0-5 [facility] Monocyte percentageOrdered B y: Yony Solis on 11-19-2024 Monocytes/100 WBC (Bld) 9.2 % 0-10 [facility] Mucus LM Ql (Urine sed)Order ed By: Yony Solis on 11-19-2024 Mucus Ql (Urine sed) 0 SEEN /hpf [facility] Neutrophil percentageOrdered By: Yony Solis on 11-19-2024 Neutrophils/100 WBC (Bld) 77.9 % High 47-70 [facility] Nitrite Test strip Ql (U)Ord ered By: Yony Solis on 11-19-2024 Nitrite Ql (U) Negative Negative [facility] Nucleated red blood cell per centageOrdered By: Yony Solis on 11-19-2024 Nucleated RBC/100 WBC (Bld) [Ratio] 0 % 0-5 [facility] Platelet countOrdered By: Aldair Solis on 11-19-2024 Platelets (Bld) [#/Vol] 231 10*3/uL 150-450 [facility] Potassium (Unsp spec) [Mass/ Vol]Ordered By: Yony Solis on 11-19-2024 Potassium [Moles/Vol] 4.9 mmol/L 3.3-5.1 [facility] Potassium measurement (mass/ volume)Ordered By: Yony Solis on 11-19-2024 Potassium (Unsp spec) [Mass/Vol] 4.9 mmol/L 3.3-5.1 [facility] Protein Test strip Ql (U)Ord ered By: Yony Solis on 11-19-2024 Protein Ql (U) 30 mg/dl High Negative [facility] RBC Auto (Bld) [#/Vol]Ordere d By: Yony Solis on 11-19-2024 RBC (Bld) [#/Vol] 5.65 10*6/uL 4.6-6.2 [facility] Serum creatinine measurement (mass/volume)Ordered By: Yony Solis on 11-19-2024 Creatinine [Mass/Vol] 2.11 mg/dL High 0.70-1.20 [facility] Serum glucose measurement (m ass/volume)Ordered By: Yony Solis on 11-19-2024 Glucose [Mass/Vol] 279 mg/dL High 70-99 [facility] Serum or plasma calcium regi urement (mass/volume)Ordered By: Yony Solis on 11-19-2024 Calcium [Mass/Vol] 10.1 mg/dL 7.6-11.0 [facility] Serum or plasma urea nitroge n measurement (mass/volume)Ordered By: Yony Solis on 11-19-2024 Urea nitrogen [Mass/Vol] 33 mg/dL High 4-19 [facility] Sodium levelOrdered By: Yony Solis on 11-19-2024 Sodium [Moles/Vol] 139 mmol/L 133-145 [facility] Squamous epithelial cells de tection in urine sediment by light microscopyOrdered By: Yony Solis on 11-19-2024 Epithelial cells.squamous LM Ql (Urine sed) 0-5 SEEN /hpf 0-5 [facility] Urinalysis, Completeon 11-19 CAST,HYALINE 0-5 SEEN Normal 0-5 [facility] Comment on above: Order Comment: CLEAN CATCH Performed By: #### L [id number] ####[facility] [address] [place], [address] EPI,SQUAMOUS 0-5 SEEN Normal 0-5 [facility] Comment on above: Order Comment: CLEAN CATCH Performed By: #### L [id number] ####[facility] [address] [place], [address] RBC 10-25 SEEN Normal 0-5 [facility] Comment on above: Order Comment: CLEAN CATCH Performed By: #### L [id number] ####[facility] [address] [place], [address] WBC 0-5 SEEN Normal 0-5 [facility] Comment on above: Order Comment: CLEAN CATCH Performed By: #### L [id number] ####[facility] [address] [place], [address] BACTERIA 0 SEEN Normal None Seen [facility] Comment on above: Order Comment: CLEAN CATCH Performed By: #### L [id number] ####[facility] [id number] [place], [address] Mucus Ql (Urine sed) 0 SEEN Normal [facility] Comment on above: Order Comment: CLEAN CATCH Performed By: #### L [id number] ####[facility] [address] [place], [address] Urine blood detectionOrdered By: Yony Solis on 11-19-2024 Urine Occult Blood 250 /ul High Negative [facility] Urine clarityOrdered By: Brien Solis on 11-19-2024 Clarity (U) Clear Clear [facility] Urine color determinationOrd ered By: Yony Solis on 11-19-2024 Color (U) Yellow Yellow [facility] Urine cultureOrdered By: Brien Solis on 11-19-2024 Bacteria identified Cx Nom (U) Positive Abnormal [facility] Urine glucose detectionOrder ed By: Yony Solis on 11-19-2024 Glucose Ql (U) 1000 mg/dl High Normal [facility] Urine leukocyte esterase det ection by dipstickOrdered By: Yony Solis on 11-19-2024 Leukocyte esterase Test strip Ql (U) 25 /ul High Negative [facility] Urine pHOrdered By: Yony Solis on 11-19-2024 pH (U) 6.0 [pH] 5.0 - 8.0 [facility] Urine sediment bacteria coun t by microscopy (number/high power field)Ordered By: Yony Solis on 11-19-2024 Bacteria LM.HPF (Urine sed) [#/Area] 0 /[HPF] None Seen [facility] Urine specific gravity measu rementOrdered By: Yony Solis on 11-19-2024 Specific gravity (U) [Rel density] 1.015 1.002-1.030 [facility] Urine urobilinogen measureme ntOrdered By: Yony Solis on 11-19-2024 Urobilinogen Ql (U) Normal mg/dl Normal [facility] Urobilinogen Ql (U)Ordered B y: Yony Solis on 11-19-2024 Urine Urobilinogen Normal mg/dl Normal [facility] White blood cell (WBC) count Ordered By: Yony Solis on 11-19-2024 WBC (Bld) [#/Vol] 8.8 10*3/uL 4.4-11.0 [facility] White blood cell countOrdere d By: Yony Solis on 11-19-2024 Urine WBC 0-5 SEEN /hpf 0-5 [facility] White blood cell count 0-5 SEEN /hpf 0-5 [facility] CNOVon 09-28-2024 CNOV Office Visit (INTMWS ) ITALO BURGOS ([id number]) 1970 M Date Time Provider Department 09/28/24 2:20 PM ZAIDA GASTON INTMWS During your visit today, we recorded the following information about you: Pulse Respiration Blood pressure Weight 95/minute 16/minute 120/72 86.6 kg Zaida Gaston MD 09/28/2024 3:44 PM Signed Reason for Visit Patient presents with: Follow Up Italo Burgos is a 53 year old male who presents here today for Above Complaints.. Health Maintenance Anxiety Screening BP Controlled (<130/80) Prostate Cancer Screening Discussion HbA1C Influenza Vaccine(1) Covid-19 Vaccine( season) STEPHANIE Kramer is a very pleasant 50-year-old gentleman. kidney transplant on March 09, 2021 end-stage kidney disease from poor diabetic control. He has a history of HTN, Diabetes Mellitus with retinopathy, blind left eye, RLE weakness, CHF, bronchitis, depression, ED, GERD, HPL, renal calculi in the new kidney, LUANNE. S/p amputation of all the left toes. Over the past year since I last saw him he has been through a very rough.. His partner of many years his broken up with him and he has to leave the home that he was staying in because it was her home. He is trying to find his own apartment to stay. He is more up-to-date with taking his medications and doing things for himself now that she is not in the picture.He is able to cook, shop, clean, do laundry, manage bills, needs help with transportation. He makes his own appointment. For exercise he is walking, around 30 mins a day He was very disheartened and was started on Prozac in addition to 375 mg of his Wellbutrin and together he is feeling much better. He has energy, is able to organize himself and his day. Diabetes Mellitus: He notes his sugars are well controlled Seeing Dr Durand. Patient is not on insulin pump yet as he does not want the pump. He is currently on 44 units of insulin in the evening and some in the morning. Sugars are not optimal as he is a little stressed out. Going through some ups and downs right now. Taking a break in relationship from his current partner of 12 years. Staying with a friend, is not very happy but there seems to be no other way to go here. 09/28/24: He is living with his sister, as he is still looking for an apartment. Today he had a low sugar, this happened after along. His sugars are other kim well controlled on insulin. He is losing weight. Around 40 pounds in the past 2 years. He is active and takes medication regularly. We may need to cut down the medication in if he keeps losing weight. Gerd is controlled on protonix, he needs a refill of the medication No problem-specific Assessment AND Plan notes found for this encounter. PAST MEDICAL HISTORY Diagnosis Date Acute diastolic (congestive) heart failure ([facility]) Bronchitis Chronic kidney failure, stage 4 (severe) ([facility]) 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 ([facility]) 12/16/2018 Depression Detached retina DM type 2, goal HbA1c < 7% ([facility]) Erectile dysfunction, unspecified erectile dysfunction type ESRD (end stage renal disease) ([facility]) GERD (gastroesophageal reflux disease) Hyperlipidemia Kidney replaced by transplant Kidney stones LUANNE (obstructive sleep apnea) PNA (pneumonia) Proliferative retinopathy 02/10/2019 PTE (post-transplant erythrocytosis) Snoring Unspecified essential hypertension Vitamin D deficiency Vitamin D deficiency PAST SURGICAL HISTORY Procedure Laterality Date AMPUTATION TOE,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 08/08/2018 Done at [facility] by Satish Phan MD CHOLECYSTECTOMY 1998 Cholecystectomy COLONOSCOPY 12/04/2018 COLONOSCOPY SCREENING 04/01/2024 CYSTO W/COMPLEX REMOVAL STONE AND STENT 1999 EGD 12/04/2018 EGD W/O [facility] SPEC VARICIES INJ 04/01/2024 PAST SURGICAL HISTORY OF Left 2012 AND 2014 removal eye fluid with instillation oil FAMILY HISTORY Problem Relation Age of Onset Colon Cancer Father 53 Diabetes Brother 52 Diabetes Sister Diabetes Mother 78 Heart Attack Mother Cancer Brother 49 lung Diabetes Son Social History Tobacco Use Smoking status: Never Smokeless tobacco: Former Types: Snuff Tobacco comments: snuff x 33 years Quit in 2020 Vaping Use Vaping status: Never Used Substance Use Topics Alcohol use: Not Currently Drug use: Not Currently Types: Marijuana Past medical history, appointments, medications, allergies reviewed. Pertinent Lab/Diagnostic Studies are reviewed and discussed today Current Outpatient Medications: sulfamethoxazole-trimet hoprim (BACTRIM) 400-[address] mg per tablet pantoprazole DR (PROTONIX) 20 mg tablet predniSONE (DELTASONE) 5 mg tablet buPROPion XL (WELLBUTRIN XL) 300 mg 24 hr tablet buPROPion (WELLBUTRIN) 75 mg tablet FLUoxetine (PROZAC) 10 mg capsule tacrolimus IR (PROGRAF) 1 mg capsule (more content not included)... Normal [facility] Endocrinology Visit Reporton 07-28-2024 Endocrinology Visit Report [facility] [address] [place] [address] OFFICE VISIT Date of Service: 07/28/24 MR#: [id number] Acct: [id number] Name: ITALO BURGOS Rep #: [id number] : 1970 Provider: Anitha Cuellar Age/Sex: 53/M Location: [facility] Status: Signed Intake Vital Signs 04/30/24 09:57 07/28/24 10:37 Height 5 ft 8 in 5 ft 8 in Weight: 201 lb 194 lb 8 oz BMI 30.5 29.5 BP 112/77 109/68 Blood Pressure Location Lt brachial Lt brachial Position Sitting Sitting Pulse 102 H 84 Pulse Source Monitor Monitor Pulse Oximetry (%) 97 95 Oxygen Delivery Method room air room air Intake Visit Reasons: 3 M FU Chief Complaint: f/u diabetes Is patient in pain?: No Allergies No Known Allergies Allergy (Verified 04/30/24 10:03) Medications ???Medication ???Instructions ???Recorded ???Confirmed ???Type pantoprazole 20 mg tablet,delayed 20 mg PO DAILY gerd 09/18/21 07/28/24 History release (Protonix) prednisone 5 mg tablet 5 mg PO DAILY steroid 09/18/21 07/28/24 History tacrolimus 1 mg tablet,extended 2 mg PO DAILY rejection med 09/18/21 07/28/24 History release 24 hr (Envarsus XR) cholecalciferol (vitamin D3) 25 50 mcg PO FR SUPPLEMENT' 12/26/21 07/28/24 History mcg (1,000 unit) capsule (Vitamin D3) losartan 25 mg tablet 25 mg PO DAILY BP 09/05/22 07/28/24 History acetaminophen 500 mg tablet 1,000 mg PO Q4H PRN Pain 11/01/22 07/28/24 History aspirin 81 mg chewable tablet 81 mg PO DAILY HEALTH 11/01/22 07/28/24 History gabapentin 100 mg capsule 100 mg PO QHS NERVE PAIN 11/01/22 07/28/24 History docusate sodium 100 mg capsule 100 mg PO DAILY PRN constipation 01/14/23 07/28/24 History (Colace) atenolol 100 mg tablet 100 mg PO DAILY 03/14/23 07/28/24 History bupropion HCl 75 mg tablet 75 mg PO .QID 03/24/24 07/28/24 History fluoxetine 10 mg capsule 10 mg PO QDAY PRN 03/24/24 07/28/24 History insulin lispro protamine-lispro See Rx Instructions subcut .tid 03/30/24 07/28/24 Rx 100 unit/mL (50-50) subcutaneous with meals #42 mL pen (Humalog Mix 50-50 KwikPen) Trulicity 4.5 mg/0.5 mL 4.5 mg (0.5 mL) subcut QWEEK #6 mL 07/17/24 07/28/24 Rx subcutaneous pen injector (dulaglutide) [facility] Medical History Congestive heart failure (CHF) Diabetic foot ulcer Gas gangrene of foot Necrotizing fasciitis Diabetic foot infection Type 2 diabetes mellitus with diabetic polyneuropathy 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 exposed Vision loss of left eye Respiratory failure Hypoxemia COVID-19 COVID-19 Type 2 diabetes mellitus with diabetic polyneuropathy Cellulitis of left lower limb Pulmonary edema Dyspnea Fistula ( 12/2018) History of left heart catheterization (LHC) ( 06/26/11) Atherosclerotic heart disease of [place] coronary artery without angina pectoris Essential hypertension Problem with dialysis access Chronic renal failure, stage 5 Vision problems Pneumonia Kidney stones Kidney failure Anasarca associated with disorder of kidney Autonomic neuropathy Hypoglycemia Acute hypoxemic respiratory failure Acute on chronic diastolic CHF (congestive heart failure) Retention, urine Obesity (BMI 30-39.9) Acute respiratory failure with hypoxia Hypokalemia Noncompliance Diabetic neuropathy Diabetic nephropathy Diabetic retinopathy ILDA (acute kidney injury) Hypertensive emergency Chewing tobacco nicotine dependence GERD (gastroesophageal reflux disease) Anxiety and depression Diabetes mellitus type II, uncontrolled Blind left eye HLD (hyperlipidemia) Right leg pain Chronic ulcer of 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 Cellulitis and abscess of right leg History of acute myocardial infarction Surgical History Renal transplant recipient Kidney replaced by transplant History of artificial lens replacement History of arteriovenostomy for renal dialysis ( 08/2018) Status post insertion of dialysis catheter ( 08/2018) History of appendectomy History of eye surgery History of cholecystectomy Family History Mother Heart disease Hypertension Father Cancer Brother Cancer Diabetes Sister Diabetes Other Alcohol abuse Depression H/O transfusion of whole blood Kidney disease Social History household members: spouse Smoking Status: Never smoker second hand exposure: No alcohol intake: never substance use type: does not use caffeine: No what type of physical activity do you participate in: none HPI HPI Chief Complaint: f/u diabetes Details: ITALO BURGOS, is a 53 (more content not included)... Normal [facility] - Hematology and Cell countson 07-28-2024 HbA1c (Bld) [Mass fraction] 8.5 % High 4.2-6.3 [facility] 06-23-2024 [facility] Telephone (TXCTGL) ITALO BURGOS ([id number]) 1970 Date Time Provider Department 06/23/24 AMANDA HAYES TXCTGL During your visit today, we recorded the following information about you: Amanda Hayes LISW 06/23/2024 11:10 AM Signed SW returned pt's phone call. Pt stated his Envarsus went to $92 a month. Pt reports he still has [facility] Dual (Medicare AND Medicaid) and he is not sure why his copay went up. ADDY informed pt that they can apply for assistance for [employer] via [facility]. ADDY emailed pt his portion of the [employer] application, as well as a 30 day copay card. SW will work on her portion of the application. Pt denies any other questions/concerns at this time. Pt has SW contact information for any future questions/concerns. SARA [employer] Allergies As of Date: 06/23/2024 (No Known Allergies) Date Reviewed: 06/18/2024 Reviewed by: Elisabeth Hanson LPN - Fully Assessed Reason for Visit: Follow Up [171] Prescriptions as of 06/23/2024 - tacrolimus IR (PROGRAF) 1 mg capsule Take 2 caps in am and 1 cap in pm - Blood-Glucose Meter,Continuous (DEXCOM G6 OFFICER CAPTAIN) misc 1 Each continuous. - Blood-Glucose Sensor (DEXCOM G6 SENSOR) glenn 1 Each continuous. - Blood-Glucose Transmitter (DEXCOM G6 TRANSMITTER) glenn 1 Each continuous. - Cholestyramine, Bulk, powd Take one(1) scoop dissolved in two(2) to six(6) ounces(oz) of fluid by mouth daily. - carvedilol (COREG) 25 mg tablet Take 1 tablet by mouth two times a day. - FLUoxetine (PROZAC) 10 mg capsule Take 1 capsule by mouth once daily. - losartan (COZAAR) 25 mg tablet Take 2 tablets by mouth once daily. - mycophenolate sodium DR (MYFORTIC) 180 mg EC tablet Take 2 tablets by mouth two times a day. - gabapentin (NEURONTIN) 100 mg capsule Take 1 capsule by mouth daily at bedtime for 180 days. - loperamide (IMODIUM) 2 mg cap(s) Take 1 capsule by mouth four times a day as needed. - Insulin Syringe-Needle U-100 1 mL 29 gauge x 1/2 1 Each as needed. For Intercavernal Injections - buPROPion (WELLBUTRIN) 75 mg tablet Take 1 tablet by mouth once daily. - buPROPion XL (WELLBUTRIN XL) 300 mg 24 hr tablet Take 1 tablet by mouth once daily. - sulfamethoxazole-trimet hoprim (BACTRIM) 400-80 mg per tablet Take 1 tablet by mouth every Saturday, Saturday, and Saturday. - pseudoephedrine (SUDAFED) 30 mg tablet Take Four 4 (30 mg) Tablets for an erection lasting more than 2 hours. If not improved in 1 hour MUST go to ER - ergocalciferol 50,000 unit capsule (VITAMIN D2, DRISDOL) Take 1 capsule by mouth one time a week. - predniSONE (DELTASONE) 5 mg tablet Take 1 tablet by mouth once daily. - dulaglutide (TRULICITY) 0.75 mg/0.5 mL pen injector Inject 0.75 mg subcutaneously one time a week. - insulin 50/50 lispro protamine-lispro units/mL (HUMALOG MIX 50-50 KWIKPEN) 100 unit/mL (50-50) pen Inject 30 Units subcutaneously daily at bedtime. - Insulin [place], Disposable, (BD ULTRA-FINE SANDRA PEN NEEDLE) 32 gauge x 5/32 Use as directed four times daily - MEDICAL SUPPLY D/C oxygen - Lancets lancets Test Blood Sugar 3 x/day. Dx E11.8 Insulin Dependent, One Touch Verio brand preferred - Blood-Glucose Meter monitoring kit Glucose Meter of Choice, One Touch Verio preferred - Kit - Dx E11.8 Insulin Dependent, Test blood sugar three times a day - blood sugar diagnostic (BLOOD GLUCOSE TEST) test strip One Touch Verio preferred - Kit - Dx E11.8 Insulin Dependent, Test blood sugar three times a day - blood sugar diagnostic (BLOOD GLUCOSE TEST) test strip TEST BLOOD SUGAR 3 TIMES PER DAY. DX: 250.E11.9. INSULIN DEP: yes - glucagon 3 mg/actuation nasal spray (BAQSIMI) Use 1 [place] in the nose as needed for low blood sugar. May repeat after 15 minutes using a new device if there is no response. - aspirin 81 mg chewable tablet chew and swallow 1 tablet by mouth once daily. - fluticasone (FLONASE) 50 mcg/actuation nasal spray Use 2 Sprays in each nostril once daily. - CPAP Initiate Auto PAP @ 5-20 cm of water with humidification. Mask (per patient preference) optional chin strap (if indicated) , filters, tubing, humidifier and lifetime supplies. - >Compression Knee Highs 30-40 mm KNEE HIGH COMPRESSION STOCKINGS, 30-40 MM, I DX: EDEMA - ACETAMINOPHEN ORAL Take by mouth. 1000 mg bid for pain / aches Problem List As Of Date 06/23/2024 Noted Resolved Uncontrolled type 2 diabetes mellitus with comp*04/17/2006 Hypertension goal BP (blood pressure) < 140/90 *04/17/2006 Other hyperlipidemia [E78.49] 04/17/2006 Depressive disorder, not elsewhere classified [*04/17/2006 04/02/2019 ED (erectile dysfunction) [N52.9] 09/30/2014 Lower urinary tract symptoms (LUTS) [R39.9] 09/30/2014 History of kidney stones [Z87.442] 09/30/2014 Microscopic hematuria [R31.29] 09/30/2014 Diabetic polyneuropathy associa (more content not included)... Normal [facility] CNOVon 06-18-2024 CNOV Office Visit (INTMWS ) BURGOSITALO Mery ([id number]) 1970 M Date Time Provider Department 06/18/24 11:40 AM ZAIDA GASTON INTMWS During your visit today, we recorded the following information about you: Pulse Blood pressure Weight 100/minute 151/96 91.8 kg Zaida Gaston MD 06/18/2024 1:00 PM Signed Reason for Visit Patient presents with: Recheck Italo Burgos is a 53 year old male who presents here today for Above Complaints.. Health Maintenance Anxiety Screening BP Controlled (<130/80) Prostate Cancer Screening Discussion HbA1C Influenza Vaccine(1) Covid-19 Vaccine( season) STEPHANIE Kramer is a very pleasant 50-year-old gentleman. kidney transplant on March 09, 2021 end-stage kidney disease from poor diabetic control. He has a history of HTN, Diabetes Mellitus with retinopathy, blind left eye, RLE weakness, CHF, bronchitis, depression, ED, GERD, HPL, renal calculi in the new kidney, LUANNE. S/p amputation of all the left toes. Over the past year since I last saw him he has been through a very rough.. His partner of many years his broken up with him and he has to leave the home that he was staying in because it was her home. He is trying to find his own apartment to stay. He is more up-to-date with taking his medications and doing things for himself now that she is not in the picture.He is able to cook, shop, clean, do laundry, manage bills, needs help with transportation. He makes his own appointment. For exercise he is walking, around 30 mins a day He was very disheartened and was started on Prozac in addition to 375 mg of his Wellbutrin and together he is feeling much better. He has energy, is able to organize himself and his day. Diabetes Mellitus: He notes his sugars are well controlled Seeing Dr Durand. Patient is not on insulin pump yet as he does not want the pump. He is currently on 44 units of insulin in the evening and some in the morning. Sugars are not optimal as he is a little stressed out. Going through some ups and downs right now. Taking a break in relationship from his current partner of 12 years. Staying with a friend, is not very happy but there seems to be no other way to go here. No problem-specific Assessment AND Plan notes found for this encounter. PAST MEDICAL HISTORY Diagnosis Date Acute diastolic (congestive) heart failure ([facility]) Bronchitis Chronic kidney failure, stage 4 (severe) ([facility]) 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 ([facility]) 12/16/2018 Depression Detached retina DM type 2, goal HbA1c < 7% ([facility]) Erectile dysfunction, unspecified erectile dysfunction type ESRD (end stage renal disease) ([facility]) GERD (gastroesophageal reflux disease) Hyperlipidemia Kidney replaced by transplant Kidney stones LUANNE (obstructive sleep apnea) PNA (pneumonia) Proliferative retinopathy 02/10/2019 PTE (post-transplant erythrocytosis) Snoring Unspecified essential hypertension Vitamin D deficiency Vitamin D deficiency PAST SURGICAL HISTORY Procedure Laterality Date AMPUTATION TOE,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 08/08/2018 Done at [facility] by Satish Phan MD CHOLECYSTECTOMY 1998 Cholecystectomy COLONOSCOPY 12/04/2018 COLONOSCOPY SCREENING 04/01/2024 CYSTO W/COMPLEX REMOVAL STONE AND STENT 1999 EGD 12/04/2018 EGD W/O [facility] SPEC VARICIES INJ 04/01/2024 PAST SURGICAL HISTORY OF Left 2012 AND 2014 removal eye fluid with instillation oil FAMILY HISTORY Problem Relation Age of Onset Colon Cancer Father 53 Diabetes Brother 52 Diabetes Sister Diabetes Mother 78 Heart Attack Mother Cancer Brother 49 lung Diabetes Son Social History Tobacco Use Smoking status: Never Smokeless tobacco: Former Types: Snuff Tobacco comments: snuff x 33 years Quit in 2020 Vaping Use Vaping status: Never Used Substance Use Topics Alcohol use: Not Currently Drug use: Not Currently Types: Marijuana Past medical history, appointments, medications, allergies reviewed. Pertinent Lab/Diagnostic Studies are reviewed and discussed today Current Outpatient Medications: tacrolimus IR (PROGRAF) 1 mg capsule Blood-Glucose Meter,Continuous (DEXCOM G6 OFFICER CAPTAIN) misc Blood-Glucose Sensor (DEXCOM G6 SENSOR) glenn Blood-Glucose Transmitter (DEXCOM G6 TRANSMITTER) glenn Cholestyramine, Bulk, powd carvedilol (COREG) 25 mg tablet FLUoxetine (PROZAC) 10 mg capsule losartan (COZAAR) [address] (MYFORTIC) 180 mg EC tablet gabapentin (NEURONTIN) 100 mg capsule loperamide (IMODIUM) 2 mg cap(s) buPROPion (WELLBUTRIN) 75 mg tablet buPROPion XL (WELLBUTRIN XL) 300 mg 24 hr tablet sulfamethoxazole-trimet hoprim (BACTRIM) 400-80 mg per tablet pseudoephedrine (SUDAFED) 30 mg tablet ergocalciferol 50,000 unit capsule (VITAMIN D2, DRISDOL) predniSONE (DELTASONE) 5 mg tablet dulaglutide (TR (more content not included)... [facility] [place] [facility] ITALO BURGOS ([id number]) 1970 M Date Time Provider Department 06/18/24 AMANDA HAYES TXCTGL During your visit today, we recorded the following information about you: Amanda Hayes LISW 06/18/2024 11:38 AM Signed ADDY attempted to call pt per request of WORKFORCE DEVELOPMENT SPECIALIST regarding possible copay issues for Envarsus. In reviewing pt's chart is appears that pt has [facility] Dual (Medicare AND Medicaid.) SW attempted to contact pt and SW left a message. SW will await return phone call. 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 - Blood-Glucose Sensor (DEXCOM G6 SENSOR) glenn 1 Each continuous. - Blood-Glucose Transmitter (DEXCOM G6 TRANSMITTER) glenn 1 Each continuous. - Cholestyramine, Bulk, powd Take one(1) scoop dissolved in two(2) to six(6) ounces(oz) of fluid by mouth daily. - carvedilol (COREG) 25 mg tablet Take 1 tablet by mouth two times a day. - FLUoxetine (PROZAC) 10 mg capsule Take 1 capsule by mouth once daily. - losartan (COZAAR) 25 mg tablet Take 2 tablets by mouth once daily. - mycophenolate sodium DR (MYFORTIC) 180 mg EC tablet Take 2 tablets by mouth two times a day. - gabapentin (NEURONTIN) 100 mg capsule Take 1 capsule by mouth daily at bedtime for 180 days. - loperamide (IMODIUM) 2 mg cap(s) Take 1 capsule by mouth four times a day as needed. - Insulin Syringe-Needle U-100 1 mL 29 gauge x 1/2 1 Each as needed. For Intercavernal Injections - papaverine-phentolamine -alprostadil 30 MG - 1 MG - 10 MCG/ML injection (CPD) Inject 30 units into the intracavernosal region of the penis - buPROPion (WELLBUTRIN) 75 mg tablet Take 1 tablet by mouth once daily. - buPROPion XL (WELLBUTRIN XL) 300 mg 24 hr tablet Take 1 tablet by mouth once daily. - pantoprazole DR (PROTONIX) 20 mg tablet Take 1 tablet by mouth once daily. - sulfamethoxazole-trimet hoprim (BACTRIM) 400-80 mg per tablet Take 1 tablet by mouth every Saturday, Saturday, and Saturday. - pseudoephedrine (SUDAFED) 30 mg tablet Take Four 4 (30 mg) Tablets for an erection lasting more than 2 hours. If not improved in 1 hour MUST go to ER - ergocalciferol 50,000 unit capsule (VITAMIN D2, DRISDOL) Take 1 capsule by mouth one time a week. - predniSONE (DELTASONE) 5 mg tablet Take 1 tablet by mouth once daily. - dulaglutide (TRULICITY) 0.75 mg/0.5 mL pen injector Inject 0.75 mg subcutaneously one time a week. - insulin 50/50 lispro protamine-lispro units/mL (HUMALOG MIX 50-50 KWIKPEN) 100 unit/mL (50-50) pen Inject 30 Units subcutaneously daily at bedtime. - insulin lispro (HUMALOG KWIKPEN INSULIN) 100 unit/mL Inject 20 units plus sliding scale with breakfast, 16 units plus SS with lunch, and 20 units + SS with dinner as directed. For snacks, inject 8 units plus sliding scale (Sliding scale: 2 units for every 40 >180 mg/dL) - Insulin [place], Disposable, (BD ULTRA-FINE SANDRA PEN NEEDLE) 32 gauge x 5/32 Use as directed four times daily - MEDICAL SUPPLY D/C oxygen - Lancets lancets Test Blood Sugar 3 x/day. Dx E11.8 Insulin Dependent, One Touch Verio brand preferred - Blood-Glucose Meter monitoring kit Glucose Meter of Choice, One Touch Verio preferred - Kit - Dx E11.8 Insulin Dependent, Test blood sugar three times a day - blood sugar diagnostic (BLOOD GLUCOSE TEST) test strip One Touch Verio preferred - Kit - Dx E11.8 Insulin Dependent, Test blood sugar three times a day - blood sugar diagnostic (BLOOD GLUCOSE TEST) test strip TEST BLOOD SUGAR 3 TIMES PER DAY. DX: 250.E11.9. INSULIN DEP: yes - glucagon 3 mg/actuation nasal spray (BAQSIMI) Use 1 [place] in the nose as needed for low blood sugar. May repeat after 15 minutes using a new device if there is no response. - aspirin 81 mg chewable tablet chew and swallow 1 tablet by mouth once daily. - fluticasone (FLONASE) 50 mcg/actuation nasal spray Use 2 Sprays in each nostril once daily. - CPAP Initiate Auto PAP @ 5-20 cm of water with humidification. Mask (per patient preference) optional chin strap (if indicated) , filters, tubing, humidifier and lifetime supplies. - >Compression Knee Highs 30-40 mm KNEE HIGH COMPRESSION STOCKINGS, 30-40 MM, I DX: EDEMA - ACETAMINOPHEN ORAL Take by mouth. 1000 mg bid for pain / aches Problem List As Of Date 06/18/2024 Noted Resolved Uncontrolled type 2 diabetes mellitus with comp*04/17/2006 Hypertension goal BP (blood pressure) < 140/90 *04/17/2006 Other hyperlipidemia [E78.49] 04/17/2006 Depressive disorder, not elsewhere classified [*0 (more content not included)... Normal [facility] HEMOGLOBIN A1C (POC)on 06-18 HbA1c (Bld) [Mass fraction] 7.1 % Abnormal 4.3 - 5.6 % [facility] Comment on above: Location:[facility], [address] [place] [address], [place], [address] Point of care (POC) Hemoglobin A1c (HGBA1C) testing is intended to assess glucose control and provide a management tool for patients known to have diabetes and their healthcare providers. Target HGBA1C levels may depend on specific clinical circumstances. POC HGBA1C is not intended for use as a diagnostic or screening test; laboratory-based testing should be used for diagnostic purposes. The following information is supplemental and may not be applicable to specific diabetes management situations: The POC device warehouse delivery driver provides a normal range of 4.2% to 6.5% for the HGBA1C POC test. However, the [place] [employer] guidelines indicate that patients with HGBA1C in the range of 5.7% to 6.4% are at increased risk for development of diabetes and that intervention by lifestyle modification may be beneficial. A HGBA1C level greater than or equal to 6.5% is considered diagnostic of diabetes, pending confirmatory testing. Use of HGBA1C testing to evaluate glucose control may not be appropriate for patients with hemoglobin variants or other conditions (e.g. anemia) that alter red blood cell lifespan. Interpretation and review of laboratory results Abnormal [facility] CNPNon 06-16-2024 ANDREWS Telephone (TXCTGL) ITALO BURGOS ([id number]) 1970 M Date Time Provider Department 06/16/24 KIDNEY TXP COORDINATORS TXCTGL During your visit today, we recorded the following information about you: Ramya Hernandez 06/16/2024 12:35 PM Signed Patient called regarding his Envarsus, He has been out for a week. His insurance is telling him it is a tier 4 medication and it is $100 of which he cannot afford. . Requesting a return call from the mental health coordinator. Please call Italo at [phone]. Allergies As of Date: 06/16/2024 (No Known Allergies) Date Reviewed: 04/01/2024 Reviewed by: Nga Ford, ANDER - Fully Assessed Prescriptions as of 06/18/2024 - tacrolimus IR (PROGRAF) 1 mg capsule Take 2 caps in am and 1 cap in pm - Blood-Glucose Meter,Continuous (DEXCOM G6 OFFICER CAPTAIN) misc 1 Each continuous. - Blood-Glucose Sensor (DEXCOM G6 SENSOR) glenn 1 Each continuous. - Blood-Glucose Transmitter (DEXCOM G6 TRANSMITTER) glenn 1 Each continuous. - Cholestyramine, Bulk, powd Take one(1) scoop dissolved in two(2) to six(6) ounces(oz) of fluid by mouth daily. - carvedilol (COREG) 25 mg tablet Take 1 tablet by mouth two times a day. - FLUoxetine (PROZAC) 10 mg capsule Take 1 capsule by mouth once daily. - losartan (COZAAR) 25 mg tablet Take 2 tablets by mouth once daily. - mycophenolate sodium DR (MYFORTIC) 180 mg EC tablet Take 2 tablets by mouth two times a day. - gabapentin (NEURONTIN) 100 mg capsule Take 1 capsule by mouth daily at bedtime for 180 days. - loperamide (IMODIUM) 2 mg cap(s) Take 1 capsule by mouth four times a day as needed. - Insulin Syringe-Needle U-100 1 mL 29 gauge x 1/2 1 Each as needed. For Intercavernal Injections - buPROPion (WELLBUTRIN) 75 mg tablet Take 1 tablet by mouth once daily. - buPROPion XL (WELLBUTRIN XL) 300 mg 24 hr tablet Take 1 tablet by mouth once daily. - sulfamethoxazole-trimet hoprim (BACTRIM) 400-80 mg per tablet Take 1 tablet by mouth every Saturday, Saturday, and Saturday. - pseudoephedrine (SUDAFED) 30 mg tablet Take Four 4 (30 mg) Tablets for an erection lasting more than 2 hours. If not improved in 1 hour MUST go to ER - ergocalciferol 50,000 unit capsule (VITAMIN D2, DRISDOL) Take 1 capsule by mouth one time a week. - predniSONE (DELTASONE) 5 mg tablet Take 1 tablet by mouth once daily. - dulaglutide (TRULICITY) 0.75 mg/0.5 mL pen injector Inject 0.75 mg subcutaneously one time a week. - insulin 50/50 lispro protamine-lispro units/mL (HUMALOG MIX 50-50 KWIKPEN) 100 unit/mL (50-50) pen Inject 30 Units subcutaneously daily at bedtime. - Insulin [place], Disposable, (BD ULTRA-FINE SANDRA PEN NEEDLE) 32 gauge x 5/32 Use as directed four times daily - MEDICAL SUPPLY D/C oxygen - Lancets lancets Test Blood Sugar 3 x/day. Dx E11.8 Insulin Dependent, One Touch Verio brand preferred - Blood-Glucose Meter monitoring kit Glucose Meter of Choice, One Touch Verio preferred - Kit - Dx E11.8 Insulin Dependent, Test blood sugar three times a day - blood sugar diagnostic (BLOOD GLUCOSE TEST) test strip One Touch Verio preferred - Kit - Dx E11.8 Insulin Dependent, Test blood sugar three times a day - blood sugar diagnostic (BLOOD GLUCOSE TEST) test strip TEST BLOOD SUGAR 3 TIMES PER DAY. DX: 250.E11.9. INSULIN DEP: yes - glucagon 3 mg/actuation nasal spray (BAQSIMI) Use 1 [place] in the nose as needed for low blood sugar. May repeat after 15 minutes using a new device if there is no response. - aspirin 81 mg chewable tablet chew and swallow 1 tablet by mouth once daily. - fluticasone (FLONASE) 50 mcg/actuation nasal spray Use 2 Sprays in each nostril once daily. - CPAP Initiate Auto PAP @ 5-20 cm of water with humidification. Mask (per patient preference) optional chin strap (if indicated) , filters, tubing, humidifier and lifetime supplies. - >Compression Knee Highs 30-40 mm KNEE HIGH COMPRESSION STOCKINGS, 30-40 MM, I DX: EDEMA - ACETAMINOPHEN ORAL Take by mouth. 1000 mg bid for pain / aches Problem List As Of Date 06/16/2024 Noted Resolved Uncontrolled type 2 diabetes mellitus with comp*04/17/2006 Hypertension goal BP (blood pressure) < 140/90 *04/17/2006 Other hyperlipidemia [E78.49] 04/17/2006 Depressive disorder, not elsewhere classified [*04/17/2006 04/02/2019 ED (erectile dysfunction) [N52.9] 09/30/2014 Lower urinary tract symptoms (LUTS) [R39.9] 09/30/2014 History of kidney stones [Z87.442] 09/30/2014 Microscopic hematuria [R31.29] 09/30/2014 Diabetic polyneuropathy associated with type 2 *05/03/2017 Acute pain of right shoulder [M25.511] 05/03/2017 04/02/2019 Nausea [R11.0] 11/15/2017 Vomiting [R11.10] 11/15/2017 Moderate episode of recurrent major depressive *11/26/2017 Stage 3a chronic kidney disease (HCC) [N18.31] 11/26/2017 Right leg weakness [R29.898] 06/14/2018 Gait instability [R (more content not included)... Normal [facility] CNPN Telephone (TXCTGL) ITALO BURGOS ([id number]) 1970 M Date Time Provider Department 06/16/24 ALANA KENT TXCTGL During your visit today, we recorded the following information about you: Alana Kent APRN.CNP 06/16/2024 1:34 PM Signed Pt called stating he has been out of Envarsus x 1 week and is unable to afford co-pay. Will try switching to tacrolimus temporarily and discuss with administrator social welfare if pt is eligible for patient assistance. Pt currently on 2.25 mg Envarsus will start tac 10/10 Alana Hedervary, BARREL DRAINER.WORKFORCE DEVELOPMENT SPECIALIST' Allergies As of Date: 06/16/2024 (No Known Allergies) Date Reviewed: 04/01/2024 Reviewed by: Nga Ford RN - Fully Assessed Reason for Visit: Medication Problem [65] Order(s):tacrolimus IR (PROGRAF) 1 mg capsuleTake 2 caps in am and 1 cap in pmDisp: 90 capsuleRfl: 11 Prescriptions as of 06/16/2024 - tacrolimus IR (PROGRAF) 1 mg capsule Take 2 caps in am and 1 cap in pm - Blood-Glucose Meter,Continuous (DEXCOM G6 OFFICER CAPTAIN) misc 1 Each continuous. - Blood-Glucose Sensor (DEXCOM G6 SENSOR) glenn 1 Each continuous. - Blood-Glucose Transmitter (DEXCOM G6 TRANSMITTER) glenn 1 Each continuous. - Cholestyramine, Bulk, powd Take one(1) scoop dissolved in two(2) to six(6) ounces(oz) of fluid by mouth daily. - carvedilol (COREG) 25 mg tablet Take 1 tablet by mouth two times a day. - FLUoxetine (PROZAC) 10 mg capsule Take 1 capsule by mouth once daily. - losartan (COZAAR) 25 mg tablet Take 2 tablets by mouth once daily. - mycophenolate sodium DR (MYFORTIC) 180 mg EC tablet Take 2 tablets by mouth two times a day. - gabapentin (NEURONTIN) 100 mg capsule Take 1 capsule by mouth daily at bedtime for 180 days. - loperamide (IMODIUM) 2 mg cap(s) Take 1 capsule by mouth four times a day as needed. - Insulin Syringe-Needle U-100 1 mL 29 gauge x 1/2 1 Each as needed. For Intercavernal Injections - papaverine-phentolamine -alprostadil 30 MG - 1 MG - 10 MCG/ML injection (CPD) Inject 30 units into the intracavernosal region of the penis - buPROPion (WELLBUTRIN) 75 mg tablet Take 1 tablet by mouth once daily. - buPROPion XL (WELLBUTRIN XL) 300 mg 24 hr tablet Take 1 tablet by mouth once daily. - pantoprazole DR (PROTONIX) 20 mg tablet Take 1 tablet by mouth once daily. - sulfamethoxazole-trimet hoprim (BACTRIM) 400-80 mg per tablet Take 1 tablet by mouth every Saturday, Saturday, and Saturday. - pseudoephedrine (SUDAFED) 30 mg tablet Take Four 4 (30 mg) Tablets for an erection lasting more than 2 hours. If not improved in 1 hour MUST go to ER - ergocalciferol 50,000 unit capsule (VITAMIN D2, DRISDOL) Take 1 capsule by mouth one time a week. - predniSONE (DELTASONE) 5 mg tablet Take 1 tablet by mouth once daily. - dulaglutide (TRULICITY) 0.75 mg/0.5 mL pen injector Inject 0.75 mg subcutaneously one time a week. - insulin 50/50 lispro protamine-lispro units/mL (HUMALOG MIX 50-50 KWIKPEN) 100 unit/mL (50-50) pen Inject 30 Units subcutaneously daily at bedtime. - insulin lispro (HUMALOG KWIKPEN INSULIN) 100 unit/mL Inject 20 units plus sliding scale with breakfast, 16 units plus SS with lunch, and 20 units + SS with dinner as directed. For snacks, inject 8 units plus sliding scale (Sliding scale: 2 units for every 40 >180 mg/dL) - Insulin [place], Disposable, (BD ULTRA-FINE SANDRA PEN NEEDLE) 32 gauge x 5/32 Use as directed four times daily - MEDICAL SUPPLY D/C oxygen - Lancets lancets Test Blood Sugar 3 x/day. Dx E11.8 Insulin Dependent, One Touch Verio brand preferred - Blood-Glucose Meter monitoring kit Glucose Meter of Choice, One Touch Verio preferred - Kit - Dx E11.8 Insulin Dependent, Test blood sugar three times a day - blood sugar diagnostic (BLOOD GLUCOSE TEST) test strip One Touch Verio preferred - Kit - Dx E11.8 Insulin Dependent, Test blood sugar three times a day - blood sugar diagnostic (BLOOD GLUCOSE TEST) test strip TEST BLOOD SUGAR 3 TIMES PER DAY. DX: 250.E11.9. INSULIN DEP: yes - glucagon 3 mg/actuation nasal spray (BAQSIMI) Use 1 [place] in the nose as needed for low blood sugar. May repeat after 15 minutes using a new device if there is no response. - aspirin 81 mg chewable tablet chew and swallow 1 tablet by mouth once daily. - fluticasone (FLONASE) 50 mcg/actuation nasal spray Use 2 Sprays in each nostril once daily. - CPAP Initiate Auto PAP @ 5-20 cm of water with humidification. Mask (per patient preference) optional chin strap (if indicated) , filters, tubing, humidifier and lifetime supplies. - >Compression Knee Highs 30-40 mm KNEE HIGH COMPRESSION STOCKINGS, 30-40 MM, I DX: EDEMA - ACETAMINOPHEN ORAL Take by mouth. 1000 mg bid for pain / aches Problem List As Of Date 06/16/2024 Noted Resolved Uncontrolled type 2 diabetes mellitus with comp*04/17/2006 Hypertension goal BP (blood pressure) < 140/90 * (more content not included)... Normal [facility] ITALO BURGOS ([id number]) 1970 M Date Time Provider Department 05/14/24 ZAIDA GASTON During your visit today, we recorded the following information about you: Xi Moreno 05/14/2024 10:13 AM Nika Kramer is calling Zaida Gaston MD today to request the name of theD diabetic supply company for the Dexcom G6 , patient will call them to have them fax the need for supplies, Please watch fax for this request from [employer] Patient has been identified by name and birthdate. Duration of symptoms: N/A Person calling: self Call patient at: on cell [phone] (home) [phone] (cell) Was an appointment scheduled: No Closing statement: Results or non-symptom based questions: Thank you for calling [facility], your call will be returned within the next business day. Xiang Nava MA 05/18/2024 10:25 AM Signed LM for patient to contact office to clarify what he is asking for. Below states he is asking for DME company for Dexcom, but then says [employer] will be faxing orders. [employer] is a DME company for Dexcom. ERVIN Brothers Sherrie, RN 05/18/2024 11:48 AM Signed Patient requesting a new Dexcom meter. Reports lost his other one. Patient does have fingerstick glucometer currently, that he is using. Reports he contacted [employer] of his request for a new Dexcom and they were supposed to fax forms to PCP to complete and send back. Please call patient with any updates regarding this. Thank you. 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 APRN.ANDRE 05/18/2024 12:28 PM Signed No forms received. Can I print prescription for this and just fax? Also, I do not see previous order for this. Which dexcom has he been using and does he need sensors as well? Thank you 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 APRN.Monik Zepeda MA 05/18/2024 1:08 PM Signed Left message for return call. Josseline Murphy RN 05/18/2024 1:36 PM Signed Patient calls and states that he uses Dexacom 6 and He needs custom home installer and sensor. Patient gets supplies for [employer]. Patient had received previous Dexacom G6 order from Pharmacy. Patient has seen [facility] for diabetes. ANDER Hernandez Joy, APRN.ANDRE 05/18/2024 3:13 PM Signed Prescriptions printed and signed. Please send to [place] as requested Thank you 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 APRN.WORKFORCE DEVELOPMENT SPECIALIST Allergies As of Date: 05/14/2024 (No Known Allergies) Date Reviewed: 04/01/2024 Reviewed by: Nga Ford RN - Fully Assessed Reason for Visit: Patient Update [1234] Request for new Dexcom [Other] Primary Visit Diagnosis:Diabetic polyneuropathy associated with type 2 diabetes mellitus (HCC) [E11.42] Other Visit Diagnosis:Type 1 diabetes mellitus on insulin therapy (HCC) [E10.9] Order(s):Blood-Glucose Meter,Continuous (DEXCOM G6 OFFICER CAPTAIN) misc1 Each continuous.Disp: 1 EachRfl: 0 Blood-Glucose Sensor (DEXCOM G6 SENSOR) devi1 Each continuous.Disp: 9 EachRfl: 3 Blood-Glucose Transmitter (DEXCOM G6 TRANSMITTER) devi1 Each continuous.Disp: 1 EachRfl: 0 Prescriptions as of 05/27/2024 - Blood-Glucose Meter,Continuous (DEXCOM G6 OFFICER CAPTAIN) misc 1 Each continuous. - Blood-Glucose Sensor (DEXCOM G6 SENSOR) glenn 1 Each continuous. - Blood-Glucose Transmitter (DEXCOM G6 TRANSMITTER) glenn 1 Each continuous. - Cholestyramine, Bulk, powd Take one(1) scoop dissolved in two(2) to six(6) ounces(oz) of fluid by mouth daily. - carvedilol (COREG) 25 mg tablet Take 1 tablet by mouth two times a day. - FLUoxetine (PROZAC) 10 mg capsule Take 1 capsule by mouth once daily. - losartan (COZAAR) 25 mg tablet Take 2 tablets by mouth once daily. - mycophenolate sodium DR (MYFORTIC) 180 mg EC tablet Take 2 tablets by mouth two times a day. - gabapentin (NEURONTIN) 100 mg capsule Take 1 capsule by mouth daily at bedtime for 180 days. - tacrolimus ER (ENVARSUS XR) 0.75 mg tablet Take 3 tablets by mouth once daily. - loperamide (IMODIUM) 2 mg cap(s) Take 1 capsule by mouth four times a day as needed. - Insulin Syringe-Needle U-100 1 mL 29 gauge x 1/2 1 Each as needed. For Intercavernal Injections - papaverine-phentolamine -alprostadil 30 MG - 1 MG - 10 MCG/ML injection (CPD) Inject 30 units into the intracavernosal region of the penis - buPROPion (WELLBUTRIN) 75 mg tablet Take 1 tablet by mouth once daily. - buPROPion XL (WELLBUTRIN XL) 300 mg 24 hr tablet Take 1 tablet by mouth once daily. - pantoprazole DR (PROTONIX) 20 mg tablet Take 1 tablet by mouth once daily. - sulfamethoxazole-trimet hoprim (BACTRIM) 400-80 mg per tablet Take 1 tablet by mouth every Saturday, Saturday, and Saturday. - pseudoephedrine (SUDAFED) 30 mg tablet Take Four 4 (30 mg) Tablets for an erection lasting more than 2 hours. If not improved in 1 hour MUST go to ER - ergocalciferol 50,000 unit capsule (VITAMIN D2, DRISDOL) Take 1 capsule by mo (more content not included)... Normal [facility] Endocrinology Visit Reporton 04-30-2024 Endocrinology Visit Report [facility] [address] [place] [address] OFFICE VISIT Date of Service: 04/30/24 MR#: [id number] Acct: [id number] Name: ITALO BURGOS Rep #: [id number] : 1970 Provider: Anitha Cuellar Age/Sex: 53/M Location: [facility] Status: Signed Intake Vital Signs 03/24/24 11:26 04/30/24 09:57 Height 5 ft 8 in 5 ft 8 in Weight: 198 lb 201 lb BMI 30.1 30.5 BP 117/72 112/77 Blood Pressure Location Lt brachial Lt brachial Position Sitting Sitting Pulse 94 102 H Pulse Source Monitor Monitor Pulse Oximetry (%) 98 97 Oxygen Delivery Method room air room air Intake Visit Reasons: 1 M FU Chief Complaint: f/u diabetes Fruit Pitter Required: No Accompanied by: Self Is patient in pain?: No Allergies No Known Allergies Allergy (Verified 04/30/24 10:03) Medications ???Medication ???Instructions ???Recorded ???Confirmed ???Type pantoprazole 20 mg tablet,delayed 20 mg PO DAILY gerd 09/18/21 04/30/24 History release (Protonix) prednisone 5 mg tablet 5 mg PO DAILY steroid 09/18/21 04/30/24 History tacrolimus 1 mg tablet,extended 2 mg PO DAILY rejection med 09/18/21 04/30/24 History release 24 hr (Envarsus XR) cholecalciferol (vitamin D3) 25 50 mcg PO FR SUPPLEMENT' 12/26/21 04/30/24 History mcg (1,000 unit) capsule (Vitamin D3) losartan 25 mg tablet 25 mg PO DAILY BP 09/05/22 04/30/24 History acetaminophen 500 mg tablet 1,000 mg PO Q4H PRN Pain 11/01/22 04/30/24 History aspirin 81 mg chewable tablet 81 mg PO DAILY HEALTH 11/01/22 04/30/24 History gabapentin 100 mg capsule 100 mg PO QHS NERVE PAIN 11/01/22 04/30/24 History docusate sodium 100 mg capsule 100 mg PO DAILY PRN constipation 01/14/23 04/30/24 History (Colace) atenolol 100 mg tablet 100 mg PO DAILY 03/14/23 04/30/24 History Trulicity 4.5 mg/0.5 mL 4.5 mg (0.5 mL) subcut QWEEK #6 mL 03/24/24 04/30/24 Rx subcutaneous pen injector (dulaglutide) bupropion HCl 75 mg tablet 75 mg PO .QID 03/24/24 04/30/24 History fluoxetine 10 mg capsule 10 mg PO QDAY PRN 03/24/24 04/30/24 History insulin lispro protamine-lispro See Rx Instructions subcut .tid 03/30/24 04/30/24 Rx 100 unit/mL (50-50) subcutaneous with meals #42 mL pen (Humalog Mix 50-50 KwikPen) [facility] Medical History Congestive heart failure (CHF) Diabetic foot ulcer Gas gangrene of foot Necrotizing fasciitis Diabetic foot infection Type 2 diabetes mellitus with diabetic polyneuropathy 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 exposed Vision loss of left eye Respiratory failure Hypoxemia COVID-19 COVID-19 Type 2 diabetes mellitus with diabetic polyneuropathy Cellulitis of left lower limb Pulmonary edema Dyspnea Fistula ( 12/2018) History of left heart catheterization (LHC) ( 06/26/11) Atherosclerotic heart disease of [place] coronary artery without angina pectoris Essential hypertension Problem with dialysis access Chronic renal failure, stage 5 Vision problems Pneumonia Kidney stones Kidney failure Anasarca associated with disorder of kidney Autonomic neuropathy Hypoglycemia Acute hypoxemic respiratory failure Acute on chronic diastolic CHF (congestive heart failure) Retention, urine Obesity (BMI 30-39.9) Acute respiratory failure with hypoxia Hypokalemia Noncompliance Diabetic neuropathy Diabetic nephropathy Diabetic retinopathy ILDA (acute kidney injury) Hypertensive emergency Chewing tobacco nicotine dependence GERD (gastroesophageal reflux disease) Anxiety and depression Diabetes mellitus type II, uncontrolled Blind left eye HLD (hyperlipidemia) Right leg pain Chronic ulcer of 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 Cellulitis and abscess of right leg History of acute myocardial infarction Surgical History Renal transplant recipient Kidney replaced by transplant History of artificial lens replacement History of arteriovenostomy for renal dialysis ( 08/2018) Status post insertion of dialysis catheter ( 08/2018) History of appendectomy History of eye surgery History of cholecystectomy Family History Mother Heart disease Hypertension Father Cancer Brother Cancer Diabetes Sister Diabetes Other Alcohol abuse Depression H/O transfusion of whole blood Kidney disease Social History household members: spouse Smoking Status: Never smoker second hand exposure: No alcohol intake: never substance use type: does not use caffeine: No what type of physical activity do you participate in: none HPI HPI Chief Complaint: f/u (more content not included)... Normal [facility] ANES POSTPROC EVALon 024 ANES POSTPROC EVAL HNO ID: [id number] Author: AMARA SLOAN DO Service: Anesthesiology Author Type: Anesthesiologist Type: Anesthesia Postprocedure Evaluation Filed: 04/01/2024 18:23 Note Text: POST ANESTHESIA EVALUATION NOTE : 1970 Procedure Summary Date: 04/01/24 Room / Location: [facility] Endoscopy Anesthesia Start: 1214 Anesthesia Stop: 1253 Procedures: EGD DIAGNOSTIC COLONOSCOPY DIAGNOSTIC Diagnosis: Diarrhea, unspecified type (Established gastro-esophageal reflux disease) (High risk colon cancer surveillance: Personal history of colonic polyps) Scheduled Providers: Lali Raman MD; Dasha Lux APRN.FRANKFURTER INSPECTOR; Amara Sloan DO Responsible Provider: Amara Sloan DO Anesthesia Type: MAC ASA Status: 3 Anesthesia Type: MAC Last Vitals Vitals Value Taken Time BP 152/83 04/01/24 1335 Temp 37.1 ?C (98.8 ?F) 04/01/24 1255 Pulse 95 04/01/24 1335 Resp 18 04/01/24 1335 SpO2 99 % 04/01/24 1335 Post Anesthesia Patient Status Patient Evaluation: PACU. PACU/ICU Patient Condition: stable. Anticipated Disposition: phase 2 then home. Neurological Status: aware and responsive. Pulmonary Status: breathing comfortably on room air Airway Control: returned to baseline unsupported. Cardiovascular Status: stable. Pain Management: clinically adequate Postoperative Hydration: acceptable. Intraoperative Events: no significant anesthesia events Post Operative Nausea/Vomiting Status: no significant post operative nausea or vomiting Recommendation: continue current plan of care and further care per PACU/ICU/floor team. Anesthesia Observations No Documentation SIGNATURE: Amara Sloan DO PATIENT NAME: Italo Burgos DATE: April 01, 2024 TIME: 6:23 PM CSN: [id number] Normal [facility] ANES PRE-OPon 04-01-2024 ANES PRE-OP HNO ID: [id number] Author: AMARA SLOAN DO Service: Anesthesiology Author Type: Anesthesiologist Type: Anesthesia Preprocedure Evaluation Filed: 04/01/2024 11:41 Note Text: ANESTHESIOLOGY DAY OF SURGERY NOTE : 1970 Procedure Information Date/Time: 04/01/24 1230 Scheduled providers: Lali Raman MD; Dasha Lux APRN.FRANKFURTER INSPECTOR; Amara Sloan DO Procedures: EGD DIAGNOSTIC COLONOSCOPY DIAGNOSTIC Location: [facility] Endoscopy Estimated body mass index is 29.95 kg/m? as calculated from the following: Height as of 03/24/24: 172.7 cm (5' 8). Weight as of 03/24/24: 89.4 kg (197 lb). Most recent hematocrit and potassium results: Hematocrit 53.7 01/10/2024 Potassium 5.1 01/10/2024 Relevant Problems No relevant active problems I - PHYSICAL EVALUATION AIRWAY Patient intubated: No. Tracheostomy tube not present Mallampati: II. TM distance: >3 FB. Neck ROM: full ROM without neurological symptoms. Mouth opening: adequate. Short neck: no. Thick neck: no DENTAL Dental findings: teeth intact. II - ANESTHESIA PLAN ASA Score: 3 Anesthetic Plan: MAC NPO Status: adequate Beta Silvana Monitoring Plan Monitoring plan: standard ASA. Post Procedure Analgesic Plan Postoperative analgesic plan: parenteral or oral opioids. Informed Consent Anesthetic risks, benefits, alternatives, personnel and consent discussed: yes. Patient / Responsible Green Party agrees to proceed: yes Patient / Surrogate agrees to blood products: Yes DNR status not reviewed with patient and/or family prior to surgery. Significant changes in the patient condition since the History and Physical, not otherwise documented in primary service progress note: no. Potential Anesthesia issues that may suggest increased risk of complications or contraindication to planned procedure: none. No vitals data found for the desired time range. Outpatient Medications as of 04/01/2024 Medication Sig Cholestyramine, Bulk, powd Take one(1) scoop dissolved in two(2) to six(6) ounces(oz) of fluid by mouth daily. carvedilol (COREG) 25 mg tablet Take 1 tablet by mouth two times a day. FLUoxetine (PROZAC) 10 mg capsule Take 1 capsule by mouth once daily. losartan (COZAAR) 25 mg tablet Take 2 tablets by mouth once daily. mycophenolate sodium DR (MYFORTIC) 180 mg EC tablet Take 2 tablets by mouth two times a day. gabapentin (NEURONTIN) 100 mg capsule Take 1 capsule by mouth daily at bedtime for 180 days. tacrolimus ER (ENVARSUS XR) 0.75 mg tablet Take 3 tablets by mouth once daily. loperamide (IMODIUM) 2 mg cap(s) Take 1 capsule by mouth four times a day as needed. Insulin Syringe-Needle U-100 1 mL 29 gauge x 1/2 1 Each as needed. For Intercavernal Injections papaverine-phentolamine -alprostadil 30 MG - 1 MG - 10 MCG/ML injection (CPD) Inject 30 units into the intracavernosal region of the penis buPROPion (WELLBUTRIN) 75 mg tablet Take 1 tablet by mouth once daily. buPROPion XL (WELLBUTRIN XL) 300 mg 24 hr tablet Take 1 tablet by mouth once daily. pantoprazole DR (PROTONIX) 20 mg tablet Take 1 tablet by mouth once daily. sulfamethoxazole-trimet hoprim (BACTRIM) 400-80 mg per tablet Take 1 tablet by mouth every Saturday, Saturday, and Saturday. pseudoephedrine (SUDAFED) 30 mg tablet Take Four 4 (30 mg) Tablets for an erection lasting more than 2 hours. If not improved in 1 hour MUST go to ER ergocalciferol 50,000 unit capsule (VITAMIN D2, DRISDOL) Take 1 capsule by mouth one time a week. predniSONE (DELTASONE) 5 mg tablet Take 1 tablet by mouth once daily. dulaglutide (TRULICITY) 0.75 mg/0.5 mL pen injector Inject 0.75 mg subcutaneously one time a week. insulin 50/50 lispro protamine-lispro units/mL (HUMALOG MIX 50-50 KWIKPEN) 100 unit/mL (50-50) pen Inject 30 Units subcutaneously daily at bedtime. insulin lispro (HUMALOG KWIKPEN INSULIN) 100 unit/mL Inject 20 units plus sliding scale with breakfast, 16 units plus SS with lunch, and 20 units + SS with dinner as directed. For snacks, inject 8 units plus sliding scale (Sliding scale: 2 units for every 40 >180 mg/dL) Insulin [place], Disposable, (BD ULTRA-FINE SANDRA PEN NEEDLE) 32 gauge x 5/32 Use as directed four times daily MEDICAL SUPPLY D/C oxygen Lancets lancets Test Blood Sugar 3 x/day. 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 DX: 250.E11.9. INSULIN DEP: yes glucagon 3 mg/actuation nasal spray (BAQSIMI) Use 1 [place] in the nose as needed for low blood sugar. May repeat after 15 minutes using a new device if th (more content not included)... Normal [facility] 04-01-2024 [facility] Telephone ([facility] [employer]) ITALO BURGOS ([id number]) 1970 M Date Time Provider Department 04/01/24 LALI RAMAN [employer] [employer] During your visit today, we recorded the following information about you: Anita Manriquez MA 04/01/2024 12:01 PM Signed [facility] pharmacy calling to check on the quantity for the Cholestyramine that was ordered. States 1G. Is patient to take daily for a certain amount of time? Do you want him to packets or large container? [phone] Khurram, the pharmacist is calling to verify. Please review and advise. ERVIN Merchant Laurie, MA 04/01/2024 12:19 PM Signed Lali Raman MD One large container, thanks (wasn't able to state that in EPIC) Pharmacy notified. Anita Manriquez MA Allergies As of Date: 04/01/2024 (No Known Allergies) Date Reviewed: 04/01/2024 Reviewed by: Luna Laura RN - Fully Assessed Reason for Visit: Medication Problem [65] Prescriptions as of 04/01/2024 - Cholestyramine, Bulk, powd Take one(1) scoop dissolved in two(2) to six(6) ounces(oz) of fluid by mouth daily. - carvedilol (COREG) 25 mg tablet Take 1 tablet by mouth two times a day. - FLUoxetine (PROZAC) 10 mg capsule Take 1 capsule by mouth once daily. - losartan (COZAAR) 25 mg tablet Take 2 tablets by mouth once daily. - mycophenolate sodium DR (MYFORTIC) 180 mg EC tablet Take 2 tablets by mouth two times a day. - gabapentin (NEURONTIN) 100 mg capsule Take 1 capsule by mouth daily at bedtime for 180 days. - tacrolimus ER (ENVARSUS XR) 0.75 mg tablet Take 3 tablets by mouth once daily. - loperamide (IMODIUM) 2 mg cap(s) Take 1 capsule by mouth four times a day as needed. - Insulin Syringe-Needle U-100 1 mL 29 gauge x 1/2 1 Each as needed. For Intercavernal Injections - papaverine-phentolamine -alprostadil 30 MG - 1 MG - 10 MCG/ML injection (CPD) Inject 30 units into the intracavernosal region of the penis - buPROPion (WELLBUTRIN) 75 mg tablet Take 1 tablet by mouth once daily. - buPROPion XL (WELLBUTRIN XL) 300 mg 24 hr tablet Take 1 tablet by mouth once daily. - pantoprazole DR (PROTONIX) 20 mg tablet Take 1 tablet by mouth once daily. - sulfamethoxazole-trimet hoprim (BACTRIM) 400-80 mg per tablet Take 1 tablet by mouth every Saturday, Saturday, and Saturday. - pseudoephedrine (SUDAFED) 30 mg tablet Take Four 4 (30 mg) Tablets for an erection lasting more than 2 hours. If not improved in 1 hour MUST go to ER - ergocalciferol 50,000 unit capsule (VITAMIN D2, DRISDOL) Take 1 capsule by mouth one time a week. - predniSONE (DELTASONE) 5 mg tablet Take 1 tablet by mouth once daily. - dulaglutide (TRULICITY) 0.75 mg/0.5 mL pen injector Inject 0.75 mg subcutaneously one time a week. - insulin 50/50 lispro protamine-lispro units/mL (HUMALOG MIX 50-50 KWIKPEN) 100 unit/mL (50-50) pen Inject 30 Units subcutaneously daily at bedtime. - insulin lispro (HUMALOG KWIKPEN INSULIN) 100 unit/mL Inject 20 units plus sliding scale with breakfast, 16 units plus SS with lunch, and 20 units + SS with dinner as directed. For snacks, inject 8 units plus sliding scale (Sliding scale: 2 units for every 40 >180 mg/dL) - Insulin [place], Disposable, (BD ULTRA-FINE SANDRA PEN NEEDLE) 32 gauge x 5/32 Use as directed four times daily - MEDICAL SUPPLY D/C oxygen - Lancets lancets Test Blood Sugar 3 x/day. Dx E11.8 Insulin Dependent, One Touch Verio brand preferred - Blood-Glucose Meter monitoring kit Glucose Meter of Choice, One Touch Verio preferred - Kit - Dx E11.8 Insulin Dependent, Test blood sugar three times a day - blood sugar diagnostic (BLOOD GLUCOSE TEST) test strip One Touch Verio preferred - Kit - Dx E11.8 Insulin Dependent, Test blood sugar three times a day - blood sugar diagnostic (BLOOD GLUCOSE TEST) test strip TEST BLOOD SUGAR 3 TIMES PER DAY. DX: 250.E11.9. INSULIN DEP: yes - glucagon 3 mg/actuation nasal spray (BAQSIMI) Use 1 [place] in the nose as needed for low blood sugar. May repeat after 15 minutes using a new device if there is no response. - aspirin 81 mg chewable tablet chew and swallow 1 tablet by mouth once daily. - fluticasone (FLONASE) 50 mcg/actuation nasal spray Use 2 Sprays in each nostril once daily. - CPAP Initiate Auto PAP @ 5-20 cm of water with humidification. Mask (per patient preference) optional chin strap (if indicated) , filters, tubing, humidifier and lifetime supplies. - >Compression Knee Highs 30-40 mm KNEE HIGH COMPRESSION STOCKINGS, 30-40 MM, I DX: EDEMA - ACETAMINOPHEN ORAL Take by mouth. 1000 mg bid for pain / aches Facility-Administered Medications as of 04/01/2024 - lidocaine (PF) 10 mg/mL (1 %) 1-2 mg injection (XYLOCAINE) - lactated ringers iv infusion - lactated ringers iv infusion Problem List As Of Date 04/01/2024 Noted Resolved Uncontrolled type 2 diabetes mellitus with comp*04/17/2006 Hypert (more content not included)... Normal [facility] Colonoscopyon 04-01-2024 Colonoscopy [facility] Gastrointestinal Endoscopy Patient Name: Italo Burgos Procedure Date: 04/01/2024 12:26 PM Date of : 1970 Admit Type: Outpatient Age: 53 Room: [facility] Gender: Male Note Status: Finalized Attending MD: Lali Raman MD, [id number] Procedure: Colonoscopy - screening high risk Indications: High risk colon cancer surveillance: Personal history of colonic polyps Providers: Lali Raman MD Patient Profile: Refer to note in patient chart for documentation of history and physical. Last Colonoscopy: 2018. Referring Physician: Nia James (Referring MD) Medicines: See the Anesthesia note for documentation of the administered medications Complications: No immediate complications. Requesting Provider: Procedure: Pre-Anesthesia Assessment: - Monitored anesthesia care under the supervision of a FRANKFURTER INSPECTOR was determined to be medically necessary for this procedure based on review of the patient's medical history, medications, and prior anesthesia history. After I obtained informed consent, the scope was passed under direct vision. Throughout the procedure, the patient's blood pressure, pulse, and oxygen saturations were monitored continuously. The Colonoscope was introduced through the anus and advanced to the cecum, identified by the appendiceal orifice, ileocecal valve and palpation. The appendiceal orifice and the rectum were photographed. The colonoscopy was performed with ease. The quality of the bowel preparation was adequate to identify polyps greater than 5 mm in size. The patient tolerated the procedure well. Scope Withdrawal Time: 0 hours 8 minutes 24 seconds Moderate Sedation: MAC anesthesia was administered by the anesthesia team. Total Procedure Duration: 0 hours 17 minutes 35 seconds Findings: The perianal and digital rectal examinations were normal. Non-bleeding internal hemorrhoids were found. Impression: - Non-bleeding internal hemorrhoids. - No specimens collected. Recommendation: - Repeat colonoscopy in 5 years for surveillance for history of colon polyps. - Return to primary care physician PRN. - Patient has a contact number available for emergencies. The signs and symptoms of potential delayed complications were discussed with the patient. Return to normal activities tomorrow. Written discharge instructions were provided to the patient. - Continue present medications. - Resume previous diet. Procedure Code(s): --- Professional --- 42194, Colonoscopy, flexible; diagnostic, including collection of specimen(s) by brushing or washing, when performed (separate procedure) Diagnosis Code(s): --- Professional --- K64.8, Other hemorrhoids Z86.010, Personal history of colonic polyps Z12.11, Encounter for screening for malignant neoplasm of colon CPT copyright 2020 [employer]. All rights reserved. The codes documented in this report are preliminary and upon therapeutic massage technician review may be revised to meet current compliance requirements. Attending Participation: I personally performed the entire procedure. Scope In: 12:29:21 PM Scope Out: 12:46:56 PM MD Lali Guerra MD 04/01/2024 12:50:36 PM This report has been signed electronically by Lali Raman MD Number of Addenda: 0 Note Initiated On: 04/01/2024 12:26 PM Estimated Blood Loss: Estimated blood loss: none. Normal [facility] EGD Study observation [address] 04-01-2024 [facility] Gastrointestinal Endoscopy Patient Name: Italo Burgos Procedure Date: 04/01/2024 12:17 PM Date of : 1970 Admit Type: Outpatient Age: 53 Room: [facility] Gender: Male Note Status: Finalized Attending MD: Lali Raman MD, [id number] Procedure: Upper GI endoscopy Indications: Gastro-esophageal reflux disease Providers: Lali Raman MD Patient Profile: Refer to note in patient chart for documentation of history and physical. Referring Physician: Nia James (Referring MD) Medicines: See the Anesthesia note for documentation of the administered medications Complications: No immediate complications. Requesting Provider: Procedure: Pre-Anesthesia Assessment: - Monitored anesthesia care under the supervision of a FRANKFURTER INSPECTOR was determined to be medically necessary for this procedure based on review of the patient's medical history, medications, and prior anesthesia history. After obtaining informed consent, the endoscope was passed under direct vision. Throughout the procedure, the patient's blood pressure, pulse, and oxygen saturations were monitored continuously. The Endoscope was introduced through the mouth, and advanced to the second part of duodenum. The upper GI endoscopy was accomplished without difficulty. The patient tolerated the procedure well. Moderate Sedation: MAC anesthesia was administered by the anesthesia team. Total Procedure Duration: 0 hours 4 minutes 44 seconds Findings: The duodenal bulb, first portion of the duodenum and second portion of the duodenum were normal. Localized mildly erythematous mucosa without bleeding was found in the gastric antrum. Biopsies were taken with a cold forceps for histology. Verification of patient identification for the specimen was done by the nurse. Estimated blood loss was minimal. - retained bile noted in stomach The Z-line was irregular. Estimated blood loss was minimal. No hiatal hernia noted. Biopsies were taken with a cold forceps for histology. Verification of patient identification for the specimen was done by the nurse. Impression: - Normal duodenal bulb, first portion of the duodenum and second portion of the duodenum. - Erythematous mucosa in the antrum. Biopsied. - Z-line irregular. Biopsied. Recommendation: - Await pathology results. - - Follow up with Nga James NP, may be via televisit for discussion of pathology results and determination of timing of future endoscopies Procedure Code(s): --- Professional --- 33548, Esophagogastroduodenosc opy, flexible, transoral; with biopsy, single or multiple Diagnosis Code(s): --- Professional --- K21.9, Gastro-esophageal reflux disease without esophagitis K22.89, Other specified disease of esophagus K31.89, Other diseases of stomach and duodenum CPT copyright 2020 [employer]. All rights reserved. The codes documented in this report are preliminary and upon therapeutic massage technician review may be revised to meet current compliance requirements. Attending Participation: I personally performed the entire procedure. Scope In: 12:19:55 PM Scope Out: 12:24:39 PM MD Lali Guerra MD 04/01/2024 12:28:27 PM This report has been signed electronically by Lali Raman MD Number of Addenda: 0 Note Initiated On: 04/01/2024 12:17 PM Estimated Blood Loss: Estimated blood loss was minimal. PROVATION [facility] Radiology Study observation (narrative) Renu h[facility] Flexible sigmoidoscopy study on 04-01-2024 [facility] Gastrointestinal Endoscopy Patient Name: Italo Burgos Procedure Date: 04/01/2024 12:26 PM Date of : 1970 Admit Type: Outpatient Age: 53 Room: [facility] Gender: Male Note Status: Finalized Attending MD: Lali Raman MD, [id number] Procedure: Colonoscopy - screening high risk Indications: High risk colon cancer surveillance: Personal history of colonic polyps Providers: Lali Raman MD Patient Profile: Refer to note in patient chart for documentation of history and physical. Last Colonoscopy: 2018. Referring Physician: Nia James (Referring MD) Medicines: See the Anesthesia note for documentation of the administered medications Complications: No immediate complications. Requesting Provider: Procedure: Pre-Anesthesia Assessment: - Monitored anesthesia care under the supervision of a FRANKFURTER INSPECTOR was determined to be medically necessary for this procedure based on review of the patient's medical history, medications, and prior anesthesia history. After I obtained informed consent, the scope was passed under direct vision. Throughout the procedure, the patient's blood pressure, pulse, and oxygen saturations were monitored continuously. The Colonoscope was introduced through the anus and advanced to the cecum, identified by the appendiceal orifice, ileocecal valve and palpation. The appendiceal orifice and the rectum were photographed. The colonoscopy was performed with ease. The quality of the bowel preparation was adequate to identify polyps greater than 5 mm in size. The patient tolerated the procedure well. Scope Withdrawal Time: 0 hours 8 minutes 24 seconds Moderate Sedation: MAC anesthesia was administered by the anesthesia team. Total Procedure Duration: 0 hours 17 minutes 35 seconds Findings: The perianal and digital rectal examinations were normal. Non-bleeding internal hemorrhoids were found. Impression: - Non-bleeding internal hemorrhoids. - No specimens collected. Recommendation: - Repeat colonoscopy in 5 years for surveillance for history of colon polyps. - Return to primary care physician PRN. - Patient has a contact number available for emergencies. The signs and symptoms of potential delayed complications were discussed with the patient. Return to normal activities tomorrow. Written discharge instructions were provided to the patient. - Continue present medications. - Resume previous diet. Procedure Code(s): --- Professional --- 55166, Colonoscopy, flexible; diagnostic, including collection of specimen(s) by brushing or washing, when performed (separate procedure) Diagnosis Code(s): --- Professional --- K64.8, Other hemorrhoids Z86.010, Personal history of colonic polyps Z12.11, Encounter for screening for malignant neoplasm of colon CPT copyright 2020 [employer]. All rights reserved. The codes documented in this report are preliminary and upon therapeutic massage technician review may be revised to meet current compliance requirements. Attending Participation: I personally performed the entire procedure. Scope In: 12:29:21 PM Scope Out: 12:46:56 PM MD Lali Guerra MD 04/01/2024 12:50:36 PM This report has been signed electronically by Lali Raman MD Number of Addenda: 0 Note Initiated On: 04/01/2024 12:26 PM Estimated Blood Loss: Estimated blood loss: none. PROVATION [facility] Radiology Study observation (narrative) [facility] GLUCOSE, BLOOD (POC)on 04-01 Glucose [Mass/Vol] 162 mg/dL Abnormal 74 - 99 mg/dL [facility] Comment on above: Location:[facility], [facility] [place], [place], [address] The Accu-Chek Inform II glucose meter has not been approved for testing on patients receiving intensive medical intervention or therapy and results from this point of care glucose test should not be used for patient management decisions in these cases. Inaccurate results may also occur from other interfering factors, such as N-acetylcysteine (blood concentrations of greater than 5mg/dL), galactose, extremes of hematocrit (<10 or >65), or high doses of ascorbic acid (vitamin C) greater than 3mg/dL. Consider alternate testing mechanisms (e.g. core lab, blood gas instrument) in the above situations. Interpretation and review of laboratory results Abnormal [facility] Glucose [Mass/Vol] 174 mg/dL Abnormal 74 - 99 mg/dL [facility] Comment on above: Location:[facility], [facility] [place], [place], [address] The Accu-Chek Inform II glucose meter has not been approved for testing on patients receiving intensive medical intervention or therapy and results from this point of care glucose test should not be used for patient management decisions in these cases. Inaccurate results may also occur from other interfering factors, such as N-acetylcysteine (blood concentrations of greater than 5mg/dL), galactose, extremes of hematocrit (<10 or >65), or high doses of ascorbic acid (vitamin C) greater than 3mg/dL. Consider alternate testing mechanisms (e.g. core lab, blood gas instrument) in the above situations. Interpretation and review of laboratory results Abnormal [facility] HISTORY PHYSICALon HISTORY PHYSICAL HNO ID: [id number] Author: LALI RAMAN MD Service: General Surgery Author Type: Physician Type: H&P Filed: 04/01/2024 11:26 Note Text: HISTORY AND PHYSICAL Italo Burgos : 1970 REFERRING PHYSICIAN: Delia Galvin [facility] [id number] CHIEF COMPLAINT: Patient presents with: Consult: Colonoscopy consultation. HPI: Italo is a 53 year old male referred for endoscopy. Italo notes diarrhea after every meal x 3 years. Refers every time he eats he has instant diarrhea. Denies blood, or abd pain. Patient denies weight changes, blood in stools, black tarry stools or abdominal pain. Refers family history of colon issues.-father with colon cancer Italo notes no upper GI complaints. Takes Protonix Italo has a history of kidney transplant 03/2021. He follows with the transplant center last appointment 01/2024- no concerns, due to follow up at routine 6 mo visit. Italo has type 2 diabetes he follows with [facility], last appointment was 12/2023. Diabetes is uncontrolled most recent hemoglobin A1c was 10.2. Italo followed up with endocrinology today his hemoglobin A1c was 10.1. Dr. Durand increased his Trulicity but he is unsure to what dose. Italo has undergone prior endoscopy. Last EGD AND colonoscopy in 11/[address] Raman at [facility] EGD Impression: - Normal esophagus. - Normal examined duodenum. - Biopsies were taken with a cold forceps for Helicobacter pylori testing. Colonoscopy: Impression: - Non-bleeding internal hemorrhoids. - No specimens collected. Pathology: CONVERTED FINAL DIAGNOSIS Stomach, antrum, biopsy - Reactive gastropathy. - No intestinal metaplasia or morphologic evidence of Helicobacter pylori organisms. ES/ka 12/08/2018 CURRENT MEDICATIONS Current Outpatient Medications Medication Sig carvedilol (COREG) 25 mg tablet Take 1 tablet by mouth two times a day. FLUoxetine (PROZAC) 10 mg capsule Take 1 capsule by mouth once daily. losartan (COZAAR) 25 mg tablet Take 2 tablets by mouth once daily. mycophenolate sodium DR (MYFORTIC) 180 mg EC tablet Take 2 tablets by mouth two times a day. gabapentin (NEURONTIN) 100 mg capsule Take 1 capsule by mouth daily at bedtime for 180 days. tacrolimus ER (ENVARSUS XR) 0.75 mg tablet Take 3 tablets by mouth once daily. loperamide (IMODIUM) 2 mg cap(s) Take 1 capsule by mouth four times a day as needed. Insulin Syringe-Needle U-100 1 mL 29 gauge x 1/2 1 Each as needed. For Intercavernal Injections papaverine-phentolamine -alprostadil 30 MG - 1 MG - 10 MCG/ML injection (CPD) Inject 30 units into the intracavernosal region of the penis buPROPion (WELLBUTRIN) 75 mg tablet Take 1 tablet by mouth once daily. buPROPion XL (WELLBUTRIN XL) 300 mg 24 hr tablet Take 1 tablet by mouth once daily. pantoprazole DR (PROTONIX) 20 mg tablet Take 1 tablet by mouth once daily. sulfamethoxazole-trimet hoprim (BACTRIM) 400-80 mg per tablet Take 1 tablet by mouth every Saturday, Saturday, and Saturday. pseudoephedrine (SUDAFED) 30 mg tablet Take Four 4 (30 mg) Tablets for an erection lasting more than 2 hours. If not improved in 1 hour MUST go to ER ergocalciferol 50,000 unit capsule (VITAMIN D2, DRISDOL) Take 1 capsule by mouth one time a week. predniSONE (DELTASONE) 5 mg tablet Take 1 tablet by mouth once daily. dulaglutide (TRULICITY) 0.75 mg/0.5 mL pen injector Inject 0.75 mg subcutaneously one time a week. insulin 50/50 lispro protamine-lispro units/mL (HUMALOG MIX 50-50 KWIKPEN) 100 unit/mL (50-50) pen Inject 30 Units subcutaneously daily at bedtime. insulin lispro (HUMALOG KWIKPEN INSULIN) 100 unit/mL Inject 20 units plus sliding scale with breakfast, 16 units plus SS with lunch, and 20 units + SS with dinner as directed. For snacks, inject 8 units plus sliding scale (Sliding scale: 2 units for every 40 >180 mg/dL) Insulin [place], Disposable, (BD ULTRA-FINE SANDRA PEN NEEDLE) 32 gauge x 5/32 Use as directed four times daily MEDICAL SUPPLY D/C oxygen Lancets lancets Test Blood Sugar 3 x/day. 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 DX: 250.E11.9. INSULIN DEP: yes glucagon 3 mg/actuation nasal spray (BAQSIMI) Use 1 [place] in the nose as needed for low blood sugar. May repeat after 15 minutes using a new device if there is no response. aspirin 81 mg chewable tablet chew and swallow 1 tablet by mouth once daily. fluticasone (FLONASE) 50 mcg/actuation nasal spray Use 2 Sprays in each nostril once daily. CPAP Initiate Auto PAP @ 5-20 cm of (more content not included)... [facility] SURGICAL PATHOLOGYon 024 ADDENDUM 1: [facility] Comment on above: Order Comment: Speci men Type: TISSUE SPECIMEN Ordering Facility: [facility] Address: [address] [place] [address] Result Comment: Adde ndum is issued to reflect the result of immunohistochemical stain: - Immunostain for H. pylori is negative in part A. Addendum electronically signed by Brendan Dominguez MD, PhD on 04/08/2024 at 2:12 PM Performed By: #### S #### [facility] CLIA [id number] [address] [place] [address] [place] [address] [place] CASE REPORT [facility] Comment on above: Order Comment: Specconstanza martin Type: TISSUE SPECIMEN Ordering Facility: [facility] Address: [address] [place] [address] Result Comment: Surg [facility] Pathology Report Case: [id number] Authorizing Provider: Lali Raman MD Collected: 04/01/2024 12:22 PM Ordering Location: [facility] Endoscopy Received: 04/01/2024 02:05 PM Pathologist: Brendan Dominguez MD, PhD Specimens: A) - Stomach, Antrum, Biopsy, R/O H. Pylori B) - Esophagogastric Junction, Biopsy, R/O Barillas's Performed By: #### S #### [facility] CLIA [id number] [address] [place] [address] FINAL DIAGNOSIS [facility] Comment on above: Order Comment: Gabriel martin Type: TISSUE SPECIMEN Ordering Facility: [facility] Address: [address] [place] [address] Result Comment: A. G astric antrum, biopsy: -Moderate chronic inactive gastritis and reactive change in antral mucosa. -Negative for intestinal metaplasia or dysplasia. -H. pylori immunostain will be reported as an addendum. B. Esophagogastric junction, biopsy: -Squamous epithelium with no diagnostic abnormality. -Separate fragment of gastric cardia type mucosa with mild chronic inflammation and reactive change. -Negative for intestinal metaplasia or dysplasia. Performed By: #### S #### [facility] CLIA [id number] [address] [place] [address] FINAL PERFORMING LAB [facility] Comment on above: Order Comment: Gabriel martin Type: TISSUE SPECIMEN Ordering Facility: [facility] Address: [address] [place] [address] Result Comment: Diag nostic interpretation performed at [facility], [address] [place] [address] CLIA# [id number] Certified Retinal Angiographer: Kamran Brooks M.D. Performed By: #### S #### [facility] IA [id number] [address] [place] [address] [place] GROSS DESCRIPTION Normal [facility] Comment on above: Order Comment: Speci men Type: TISSUE SPECIMEN Ordering Facility: [facility] Address: [address] [place] [address] Result Comment: A. S tomach, Antrum, Biopsy Received in formalin is one piece of bucio, soft tissue measuring 0.3 x 0.2 x 0.2 cm. Totally submitted in one cassette. B. Esophagogastric Junction, Biopsy Received in formalin are multiple pieces of bucio, soft tissue aggregating to 0.4 x 0.3 x 0.2 cm. Totally submitted in one cassette. JCDM April 01, 2024 6:13 PM Gross examination performed at [facility], [address] [place] [address] Performed By: #### S #### [facility] [place] [id number] [address] [place] [address] [place] Upper GI endoscopyon 07-24-2 024 Upper GI endoscopy [facility] Gastrointestinal Endoscopy Patient Name: Italo Burgos Procedure Date: 04/01/2024 12:17 PM Date of : 1970 Admit Type: Outpatient Age: 53 Room: [facility] Gender: Male Note Status: Finalized Attending MD: Lali Raman MD, [id number] Procedure: Upper GI endoscopy Indications: Gastro-esophageal reflux disease Providers: Lali Raman MD Patient Profile: Refer to note in patient chart for documentation of history and physical. Referring Physician: Nia James (Referring MD) Medicines: See the Anesthesia note for documentation of the administered medications Complications: No immediate complications. Requesting Provider: Procedure: Pre-Anesthesia Assessment: - Monitored anesthesia care under the supervision of a FRANKFURTER INSPECTOR was determined to be medically necessary for this procedure based on review of the patient's medical history, medications, and prior anesthesia history. After obtaining informed consent, the endoscope was passed under direct vision. Throughout the procedure, the patient's blood pressure, pulse, and oxygen saturations were monitored continuously. The Endoscope was introduced through the mouth, and advanced to the second part of duodenum. The upper GI endoscopy was accomplished without difficulty. The patient tolerated the procedure well. Moderate Sedation: MAC anesthesia was administered by the anesthesia team. Total Procedure Duration: 0 hours 4 minutes 44 seconds Findings: The duodenal bulb, first portion of the duodenum and second portion of the duodenum were normal. Localized mildly erythematous mucosa without bleeding was found in the gastric antrum. Biopsies were taken with a cold forceps for histology. Verification of patient identification for the specimen was done by the nurse. Estimated blood loss was minimal. - retained bile noted in stomach The Z-line was irregular. Estimated blood loss was minimal. No hiatal hernia noted. Biopsies were taken with a cold forceps for histology. Verification of patient identification for the specimen was done by the nurse. Impression: - Normal duodenal bulb, first portion of the duodenum and second portion of the duodenum. - Erythematous mucosa in the antrum. Biopsied. - Z-line irregular. Biopsied. Recommendation: - Await pathology results. - - Follow up with Nga James NP, may be via televisit for discussion of pathology results and determination of timing of future endoscopies Procedure Code(s): --- Professional --- 14132, Esophagogastroduodenosc opy, flexible, transoral; with biopsy, single or multiple Diagnosis Code(s): --- Professional --- K21.9, Gastro-esophageal reflux disease without esophagitis K22.89, Other specified disease of esophagus K31.89, Other diseases of stomach and duodenum CPT copyright 2020 [employer]. All rights reserved. The codes documented in this report are preliminary and upon therapeutic massage technician review may be revised to meet current compliance requirements. Attending Participation: I personally performed the entire procedure. Scope In: 12:19:55 PM Scope Out: 12:24:39 PM MD Lali Guerra MD 04/01/2024 12:28:27 PM This report has been signed electronically by Lali Raman MD Number of Addenda: 0 Note Initiated On: 04/01/2024 12:17 PM Estimated Blood Loss: Estimated blood loss was minimal. Normal [facility] CNOVon 03-24-2024 CNOV Office Visit (GENSWS ) ITALO BURGOS ([id number]) 1970 M Date Time Provider Department 03/24/24 4:00 PM NIA JAMES During your visit today, we recorded the following information about you: Temperature Pulse Blood pressure Weight 97.9 degrees 105/minute 118/60 89.4 kg Height 1.727 m Nia James APRN.WORKFORCE DEVELOPMENT SPECIALIST 03/24/2024 4:26 PM Signed HISTORY AND PHYSICAL Italo Burgos : 1970 REFERRING PHYSICIAN: Delia Galvin [facility] [id number] CHIEF COMPLAINT: Patient presents with: Consult: Colonoscopy consultation. HPI: Italo is a 53 year old male referred for endoscopy. Italo notes diarrhea after every meal x 3 years. Refers every time he eats he has instant diarrhea. Denies blood, or abd pain. Patient denies weight changes, blood in stools, black tarry stools or abdominal pain. Refers family history of colon issues.-father with colon cancer Italo notes no upper GI complaints. Takes Protonix Italo has a history of kidney transplant 03/2021. He follows with the transplant center last appointment 01/2024- no concerns, due to follow up at routine 6 mo visit. Italo has type 2 diabetes he follows with [facility], last appointment was 12/2023. Diabetes is uncontrolled most recent hemoglobin A1c was 10.2. Italo followed up with endocrinology today his hemoglobin A1c was 10.1. Dr. Durand increased his Trulicity but he is unsure to what dose. Italo has undergone prior endoscopy. Last EGD AND colonoscopy in 11/[address] Raman at [facility] EGD Impression: - Normal esophagus. - Normal examined duodenum. - Biopsies were taken with a cold forceps for Helicobacter pylori testing. Colonoscopy: Impression: - Non-bleeding internal hemorrhoids. - No specimens collected. Pathology: CONVERTED FINAL DIAGNOSIS Stomach, antrum, biopsy - Reactive gastropathy. - No intestinal metaplasia or morphologic evidence of Helicobacter pylori organisms. BERTA/dagoberto 12/08/2018 Current Outpatient Medications Medication Sig carvedilol (COREG) 25 mg tablet Take 1 tablet by mouth two times a day. FLUoxetine (PROZAC) 10 mg capsule Take 1 capsule by mouth once daily. losartan (COZAAR) 25 mg tablet Take 2 tablets by mouth once daily. mycophenolate sodium DR (MYFORTIC) 180 mg EC tablet Take 2 tablets by mouth two times a day. gabapentin (NEURONTIN) 100 mg capsule Take 1 capsule by mouth daily at bedtime for 180 days. tacrolimus ER (ENVARSUS XR) 0.75 mg tablet Take 3 tablets by mouth once daily. loperamide (IMODIUM) 2 mg cap(s) Take 1 capsule by mouth four times a day as needed. Insulin Syringe-Needle U-100 1 mL 29 gauge x 1/2 1 Each as needed. For Intercavernal Injections papaverine-phentolamine -alprostadil 30 MG - 1 MG - 10 MCG/ML injection (CPD) Inject 30 units into the intracavernosal region of the penis buPROPion (WELLBUTRIN) 75 mg tablet Take 1 tablet by mouth once daily. buPROPion XL (WELLBUTRIN XL) 300 mg 24 hr tablet Take 1 tablet by mouth once daily. pantoprazole DR (PROTONIX) 20 mg tablet Take 1 tablet by mouth once daily. sulfamethoxazole-trimet hoprim (BACTRIM) 400-80 mg per tablet Take 1 tablet by mouth every Saturday, Saturday, and Saturday. pseudoephedrine (SUDAFED) 30 mg tablet Take Four 4 (30 mg) Tablets for an erection lasting more than 2 hours. If not improved in 1 hour MUST go to ER ergocalciferol 50,000 unit capsule (VITAMIN D2, DRISDOL) Take 1 capsule by mouth one time a week. predniSONE (DELTASONE) 5 mg tablet Take 1 tablet by mouth once daily. dulaglutide (TRULICITY) 0.75 mg/0.5 mL pen injector Inject 0.75 mg subcutaneously one time a week. insulin 50/50 lispro protamine-lispro units/mL (HUMALOG MIX 50-50 KWIKPEN) 100 unit/mL (50-50) pen Inject 30 Units subcutaneously daily at bedtime. insulin lispro (HUMALOG KWIKPEN INSULIN) 100 unit/mL Inject 20 units plus sliding scale with breakfast, 16 units plus SS with lunch, and 20 units + SS with dinner as directed. For snacks, inject 8 units plus sliding scale (Sliding scale: 2 units for every 40 >180 mg/dL) Insulin [place], Disposable, (BD ULTRA-FINE SANDRA PEN NEEDLE) 32 gauge x 5/32 Use as directed four times daily MEDICAL SUPPLY D/C oxygen Lancets lancets Test Blood Sugar 3 x/day. 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 DX: 250.E11.9. INSULIN DEP: yes glucagon 3 mg/actuation nasal spray (BAQSIMI) Use 1 [place] in the nose as needed for low blood sugar. January r (more content not included)... Normal [facility] Endocrinology Visit Reporton 03-24-2024 Endocrinology Visit Report [facility] [address] [place] [address] OFFICE VISIT Date of Service: 03/24/24 MR#: [id number] Acct: [id number] Name: ITALO BURGOS Rep #: [id number] : 1970 Provider: Anitha Cuellar Age/Sex: 53/M Location: [facility] Status: Signed Intake Vital Signs 01/02/24 10:57 03/24/24 11:26 Height 5 ft 8 in 5 ft 8 in Weight: 208 lb 198 lb BMI 31.6 30.1 BP 135/84 H 117/72 Blood Pressure Location Lt brachial Lt brachial Position Sitting Sitting Respiration 18 Pulse 100 94 Pulse Source Monitor Monitor Temp 98.0 F Temp Source Temporal Pulse Oximetry (%) 93 98 Oxygen Delivery Method room air room air Intake Visit Reasons: 3 M FU Chief Complaint: f/u diabetes Fruit Pitter Required: No Accompanied by: Self Is patient in pain?: No Allergies No Known Allergies Allergy (Verified 07/16/24 11:30) Medications ???Medication ???Instructions ???Recorded ???Confirmed ???Type pantoprazole 20 mg tablet,delayed 20 mg PO DAILY gerd 09/18/21 03/24/24 History release (Protonix) prednisone 5 mg tablet 5 mg PO DAILY steroid 09/18/21 03/24/24 History tacrolimus 1 mg tablet,extended 2 mg PO DAILY rejection med 09/18/21 03/24/24 History release 24 hr (Envarsus XR) cholecalciferol (vitamin D3) 25 50 mcg PO FR SUPPLEMENT' 12/26/21 03/24/24 History mcg (1,000 unit) capsule (Vitamin D3) losartan 25 mg tablet 25 mg PO DAILY BP 09/05/22 03/24/24 History acetaminophen 500 mg tablet 1,000 mg PO Q4H PRN Pain 11/01/22 03/24/24 History aspirin 81 mg chewable tablet 81 mg PO DAILY HEALTH 11/01/22 03/24/24 History gabapentin 100 mg capsule 100 mg PO QHS NERVE PAIN 11/01/22 03/24/24 History docusate sodium 100 mg capsule 100 mg PO DAILY PRN constipation 01/14/23 03/24/24 History (Colace) atenolol 100 mg tablet 100 mg PO DAILY 03/14/23 03/24/24 History Trulicity 4.5 mg/0.5 mL 4.5 mg (0.5 mL) subcut QWEEK #6 mL 03/24/24 03/24/24 Rx subcutaneous pen injector (dulaglutide) bupropion HCl 75 mg tablet 75 mg PO .QID 03/24/24 03/24/24 History fluoxetine 10 mg capsule 10 mg PO QDAY PRN 03/24/24 03/24/24 History insulin lispro protamine-lispro See Rx Instructions subcut .tid 03/24/24 03/24/24 History 100 unit/mL (50-50) subcutaneous with meals pen (Humalog Mix 50-50 KwikPen) [facility] Medical History (Updated 03/24/24 @ 13:[address] Steve Durand MD) Congestive heart failure (CHF) Diabetic foot ulcer Gas gangrene of foot Necrotizing fasciitis Diabetic foot infection Type 2 diabetes mellitus with diabetic polyneuropathy 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 exposed Vision loss of left eye Respiratory failure Hypoxemia COVID-19 COVID-19 Type 2 diabetes mellitus with diabetic polyneuropathy Cellulitis of left lower limb Pulmonary edema Dyspnea Fistula ( 12/2018) History of left heart catheterization (LHC) ( 06/26/11) Atherosclerotic heart disease of [place] coronary artery without angina pectoris Essential hypertension Problem with dialysis access Chronic renal failure, stage 5 Vision problems Pneumonia Kidney stones Kidney failure Anasarca associated with disorder of kidney Autonomic neuropathy Hypoglycemia Acute hypoxemic respiratory failure Acute on chronic diastolic CHF (congestive heart failure) Retention, urine Obesity (BMI 30-39.9) Acute respiratory failure with hypoxia Hypokalemia Noncompliance Diabetic neuropathy Diabetic nephropathy Diabetic retinopathy ILDA (acute kidney injury) Hypertensive emergency Chewing tobacco nicotine dependence GERD (gastroesophageal reflux disease) Anxiety and depression Diabetes mellitus type II, uncontrolled Blind left eye HLD (hyperlipidemia) Right leg pain Chronic ulcer of 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 Cellulitis and abscess of right leg History of acute myocardial infarction Surgical History Renal transplant recipient Kidney replaced by transplant History of artificial lens replacement History of arteriovenostomy for renal dialysis ( 08/2018) Status post insertion of dialysis catheter ( 08/2018) History of appendectomy History of eye surgery History of cholecystectomy Family History Mother Heart disease Hypertension Father Cancer Brother Cancer Diabetes Sister Diabetes Other Alcohol abuse Depression H/O transfusion of whole blood Kidney disease Social History household members: spouse Smoking Status: Never smoker second hand exposure: No alcohol intake: never substance use type: does not use caffeine: No what type of physical activity do you part (more content not included)... [facility] Office Visit (INTMWS ) ITALO BURGOS ([id number]) 1970 M Date Time Provider Department 03/18/24 5:40 PM DELIA KAUFMAN During your visit today, we recorded the following information about you: Pulse Respiration Blood pressure Weight 102/minute 16/minute 118/72 90.3 kg 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 APRN.WORK[employer] DEVELOP[employer] SPECIALIST 03/18/2024 5:55 PM Signed Chief Complaint Patient presents with: Recheck: 6 week follow up HPI Italo Burgos is a 53 year old male who presents here today for depression follow-up. Patient was seen 6 weeks ago and started on fluoxetine. Feels much improvement in depression. Sleep: is described as normal Alcohol use: does not drink any alcohol Drug use: No Appetite: good Suicidal Thoughts: No suicidal ideation, intent or plan Support: Comes from multiple sources including family of siblings Counseling: Yes, goes once a month to counseling center. REVIEW OF SYSTEMS See HPI PAST MEDICAL HISTORY Diagnosis Date Acute diastolic (congestive) heart failure ([facility]) Bronchitis Chronic kidney failure, stage 4 (severe) ([facility]) 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 ([facility]) 12/16/2018 Depression Detached retina DM type 2, goal HbA1c < 7% ([facility]) Erectile dysfunction, unspecified erectile dysfunction type ESRD (end stage renal disease) ([facility]) GERD (gastroesophageal reflux disease) Hyperlipidemia Kidney replaced by transplant Kidney stones LUANNE (obstructive sleep apnea) PNA (pneumonia) Proliferative retinopathy 02/10/2019 PTE (post-transplant erythrocytosis) Snoring Unspecified essential hypertension Vitamin D deficiency Vitamin D deficiency PAST SURGICAL HISTORY Procedure Laterality Date AMPUTATION TOE,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 08/08/2018 Done at [facility] by Satish Phan MD CHOLECYSTECTOMY 1998 Cholecystectomy COLONOSCOPY 12/04/2018 CYSTO W/COMPLEX REMOVAL STONE AND STENT 1999 EGD 12/04/2018 PAST SURGICAL HISTORY OF Left 2012 AND 2014 removal eye fluid with instillation oil ALLERGIES Patient has no known allergies. MEDICATIONS carvedilol (COREG) 25 mg tablet Take 1 tablet by mouth two times a day. FLUoxetine (PROZAC) 10 mg capsule Take 1 capsule by mouth once daily. losartan (COZAAR) 25 mg tablet Take 2 tablets by mouth once daily. mycophenolate sodium DR (MYFORTIC) 180 mg EC tablet Take 2 tablets by mouth two times a day. gabapentin (NEURONTIN) 100 mg capsule Take 1 capsule by mouth daily at bedtime for 180 days. tacrolimus ER (ENVARSUS XR) 0.75 mg tablet Take 3 tablets by mouth once daily. loperamide (IMODIUM) 2 mg cap(s) Take 1 capsule by mouth four times a day as needed. Insulin Syringe-Needle U-100 1 mL 29 gauge x 1/2 1 Each as needed. For Intercavernal Injections papaverine-phentolamine -alprostadil 30 MG - 1 MG - 10 MCG/ML injection (CPD) Inject 30 units into the intracavernosal region of the penis buPROPion (WELLBUTRIN) 75 mg tablet Take 1 tablet by mouth once daily. buPROPion XL (WELLBUTRIN XL) 300 mg 24 hr tablet Take 1 tablet by mouth once daily. pantoprazole DR (PROTONIX) 20 mg tablet Take 1 tablet by mouth once daily. sulfamethoxazole-trimet hoprim (BACTRIM) 400-80 mg per tablet Take 1 tablet by mouth every Saturday, Saturday, and Saturday. pseudoephedrine (SUDAFED) 30 mg tablet Take Four 4 (30 mg) Tablets for an erection lasting more than 2 hours. If not improved in 1 hour MUST go to ER ergocalciferol 50,000 unit capsule (VITAMIN D2, DRISDOL) Take 1 capsule by mouth one time a week. predniSONE (DELTASONE) 5 mg tablet Take 1 tablet by mouth once daily. dulaglutide (TRULICITY) 0.75 mg/0.5 mL pen injector Inject 0.75 mg subcutaneously one time a week. insulin 50/50 lispro protamine-lispro units/mL (HUMALOG MIX 50-50 KWIKPEN) 100 unit/mL (50-50) pen Inject 30 Units subcutaneously daily at bedtime. insulin lispro (HUMALOG KWIKPEN INSULIN) 100 unit/mL Inject 20 units plus sliding scale with breakfast, 16 units plus SS with lunch, and 20 units + SS with dinner as directed. For snacks, inject 8 units plus sliding scale (Sliding scale: 2 units for every 40 >180 mg/dL) Insulin [place], Disposable, (BD ULTRA-FINE SANDRA PEN NEEDLE) 32 gauge x /32 Use as directed four times daily MEDICAL SUPPLY D/C oxygen Lancets lancets Test Blood Sugar 3 x/day. 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 DX: 250.E11.9. INSULIN DEP: yes glucagon 3 mg/actuation nasal spray (BAQSIMI) Use 1 [place] in the nose as needed for (more content not included)... Normal [facility] PROTEIN / CREATININE RATIOon 01-13-2024 Protein/Creatinine (U) [Mass ratio] 0.10 mg/mg NINF - 0.15 mg/mg [facility] Comment on above: Adult Proteinuria Ca tegories: <0.15 mg/mg is considered normal to mildly increased 0.15 - 0.50 mg/mg is considered moderately increased >0.50 mg/mg is considered severely increased KDIGO. (2013). KDIGO 2012 Clinical Practice Guideline for the Evaluation and Management of Chronic Kidney Disease. Official Journal of the International Society of Nephrology, 3(1), 1-150. Protein/Creatinine (U) [Mass ratio]on 01-13-2024 Creatinine (U) [Mass/Vol] 135.6 mg/dL 20.0 - 300.0 mg/dL [facility] Interpretation and review of laboratory results Normal [facility] Protein (U) [Mass/Vol] 13 mg/dL 0 - 2 0 mg/dL [facility] URINALYSIS, REFLEX MICROSCOP ICOrdered By: Mesha Mcdaniel on 01-13-2024 Bilirubin Ql (U) Negative Negative [facility] Clarity (Unsp spec) Clear Clear [facility] Color (U) Yellow Yellow [facility] Glucose Test strip (U) [Mass/Vol] 4+ Abnormal Trace, Negative [facility] Comment on above: Result rechecked. Hemoglobin Ql (U) Negative Negative, Trace [facility] Interpretation and review of laboratory results Abnormal [facility] Ketones Ql (U) Negative Negative, Trace [facility] Leukocyte esterase Test strip Ql (U) Negative Negative, 25 Pam/uL [facility] Nitrite Ql (U) Negative Negative [facility] pH (U) 5.5 [pH] 5.0 - 8.0 [facility] Protein (U) [Mass/Vol] Negative Trace , Negative [facility] Specific gravity (U) [Rel density] 1.023 1.005 - 1.030 [facility] Urobilinogen Ql (U) Normal Normal [facility] Basophil percentageOrdered B y: Conchis Meza on 01-03-2024 Bilirubin [Mass/Vol] 0.90 mg/dL 0.20-1.00 [facility] Comment on above: For patients on eltr ombopag therapy, use of Dimension [place] TBIL is not recommended. Chloride [Moles/Vol] 110 mmol/L 98-107 [facility] Cholesterol [Mass/Vol] 168 mg/dL <200 [facility] Comment on above: <200 mg/dL Desirable 200-240 mg/dL Borderline >240 mg/dL High Risk Glucose [Mass/Vol] 239 mg/dL 74-106 [facility] Comment on above: Glucose result great er than or equal to 200 mg/dLsuggests DIABETES MELLITUS per A.D.A. criteria. Potassium [Moles/Vol] 4.9 mmol/L 3.5-5.1 [facility] Protein [Mass/Vol] 7.2 g/dL 6.4-8.2 [facility] Sodium [Moles/Vol] 138 mmol/L 136-145 [facility] Triglyceride [Mass/Vol] 119 mg/dL <199 [facility] Comment on above: The drugs N-Acetylcy steine and Metamizole may falsely depress this assay.Serum Triglycerides Reference Interval Normal <150 mg/dL Borderline high 150 - 199 mg/dL High 200 - 499 mg/dL Very High > or = 500 mg/dL Laboratory - Chemistry and C hemistry - challengeOrdered By: Conchisbelkis Meza on 01-03-2024 Albumin/Globulin [Mass ratio] 1.1 {ratio} 0.9-2.4 [facility] ALP [Catalytic activity/Vol] 208 U/L 45-117 [facility] ALT [Catalytic activity/Vol] 124 U/L 16-61 [facility] Cholesterol in HDL [Mass/Vol] 51 mg/dL >40 [facility] Comment on above: The drugs N-Acetylcy steine and Metamizole may falsely depress this assay. Reference Range HDL <40 mg/dL Low HDL Cholesterol HDL >or= 60 mg/dL High HDL Cholesterol Cholesterol in LDL [Mass/Vol] 93 mg/dL 0-130 [facility] CO2 [Moles/Vol] 24.0 mmol/L 21.0-32.0 [facility] Globulin (S) [Mass/Vol] 3.5 g/dL 2.2-4.2 [facility] Urea nitrogen/Creatinine [Mass ratio] 14.8 mg/mg 10-20 [facility] No Panel InformationOrdered By: Conchis Meza on 01-03-2024 Estimated GFR (MDRD) Amer 67 mL/min >60 [facility] Comment on above: GFR Calc Estimated GFR (MDRD) Non-Af Amer 55 mL/min >60 [facility] Comment on above: Non- GFR Calc Urine Microalbumin/Creatinine Ratio 21.2 mg/g CRE <30 [facility] Vitamin D 25-Hydroxy 35.0 ng/mL [facility] Comment on above: Vitamin D 25(OH) Sta tus Range Deficiency <20 ng/mL (50nmol/L) Insufficiency 20 - 30 ng/mL (50 - 75 nmol/L) Sufficiency 30 - 100 ng/mL (75 - 250 nmol/L) Toxicity >100 ng/mL (>250 nmol/L) VLDL Cholesterol 24 mg/dL 5-40 [facility] Serum or plasma calcium regi urement (mass/volume)Ordered By: Conchis Meza on 01-03-2024 Calcium [Mass/Vol] 9.1 mg/dL 8.5-10.1 [facility] Serum or plasma creatinine m easurement (mass/volume)Ordered By: Conchis Meza on 01-03-2024 Creatinine [Mass/Vol] 1.42 mg/dL 0.70-1.30 [facility] Comment on above: The validity of the calculated GFR & GFRAA in patients over 70 years has not been determined. Clinical correlation is essential. Serum or plasma thyroid stim ulating hormone (TSH) measurement (units/volume)Ordered By: Conchis Meza on 01-03-2024 TSH Qn 0.78 uIU/mL 0.358-3.74 [facility] Serum or plasma urea nitroge n measurement (mass/volume)Ordered By: Conchis Meza on 01-03-2024 Urea nitrogen [Mass/Vol] 21 mg/dL 7-18 [facility] Thin prep Papanicolaou smear with manual screeningOrdered By: Conchis Meza on 01-03-2024 Thin prep Papanicolaou smear with manual screening 3.7 g/dL 3.2-5.0 [facility] Thin prep Papanicolaou smear with manual screening 45 U/L 15-37 [facility] Thin prep Papanicolaou smear with manual screening 4 5-15 [facility] Thin prep Papanicolaou smear with manual screening 14.1 mg/L NO RANGE EST. [facility] Urine creatinine measurement (mass/volume)Ordered By: Conchis Meza on 01-03-2024 Creatinine (U) [Mass/Vol] 66.40 mg/dL NO RANGE EST. [facility] Laboratory - Hematology and Cell countson 10-24-2023 HbA1c (Bld) [Mass fraction] 11.6 % 4.2-6.3 [facility] Lipid 1996 panelon Cholesterol [Mass/Vol] 128 mg/dL <200 mg/dL [facility] Cholesterol in HDL [Mass/Vol] 37 mg/dL Low >39 mg/dL [facility] Cholesterol in LDL [Mass/Vol] 52 mg/dL <100 mg/dL [facility] Cholesterol in LDL/Cholesterol in HDL [Mass ratio] 1.41 {ratio} <2.54 [facility] Cholesterol in VLDL [Mass/Vol] 39 mg/dL High <30 mg/dL [facility] Cholesterol non HDL [Mass/Vol] 91 mg/dL <130 mg/dL [facility] Cholesterol.total/Choles terol in HDL [Mass ratio] 3.46 {ratio} <5.10 [facility] Fasting Time 0 hrs [facility] Triglyceride [Mass/Vol] 195 mg/dL High <150 mg/dL C [facility] Laboratory - Microbiology an d Antimicrobial susceptibilityon 07-15-2023 BK virus DNA CARMEN+probe [#/Vol] Not detected BK Virus DNA Not Detected by PCR. [facility] PROTEIN CREATININE RATIOon 1 09-14-2022 Protein/Creatinine (U) [Mass ratio] 0.07 mg/mg <0.15 mg/mg [facility] PTH INTACT BLDon 07-15-2023 Parathyrin.intact [Mass/Vol] 54 pg/mL 15 - 65 pg/mL [facility] Protein/Creatinine (U) [Mass ratio]on 07-15-2023 Creatinine (U) [Mass/Vol] 141.1 mg/dL 20.0 - 300.0 mg/dL [facility] Protein (U) [Mass/Vol] 10 mg/dL 0 - 2 0 mg/dL [facility] Urinalysis complete panel (U )on 07-15-2023 Bilirubin Ql (U) Negative Negative [facility] Clarity (Unsp spec) Clear Clear [facility] Color (U) Yellow Yellow [facility] Glucose Test strip (U) [Mass/Vol] 3+ Abnormal Trace, Negative [facility] Hemoglobin Ql (U) Negative Negative, Trace [facility] Hyaline casts (Urine sed) [#/Area] /[LPF] Abnormal 0 /LPF [facility] Ketones Ql (U) Negative Negative, Trace [facility] Leukocyte esterase Test strip Ql (U) Negative Negative, 25 Pam/uL [facility] Nitrite Ql (U) Negative Negative [facility] pH (U) 5.0 [pH] 5.0 - 8.0 [facility] Protein (U) [Mass/Vol] Negative Trace , Negative [facility] RBC LM.HPF (Urine sed) [#/Area] 0-3 /HPF 0-3 /HPF [facility] Specific gravity (U) [Rel density] 1.013 1.005 - 1.030 [facility] Urobilinogen Ql (U) Negative Negative [facility] WBC LM.HPF (Urine sed) [#/Area] 0-5 /HPF 0-5 /HPF [facility] VITAMIN D 25 HYDROXYon 07-15 25-hydroxyvitamin D3 [Mass/Vol] 19.5 ng/mL Low 31.0 - 80.0 ng/mL [facility] US LEG VEIN DVT UNL VAS LABo n 04-09-2023 [facility] Glucose Glucometer (BldC) [M ass/Vol]Ordered By: Loi Saldana on 03-14-2023 Glucose [Mass/Vol] 129 mg/dL 74-106 [facility] Comment on above: MANAGEMENT OF PATIEN T CARE PER NURSING PROTOCOL Absolute lymphocyte countOrd ered By: Loi Saldana on 03-13-2023 Lymphocytes Auto (Unsp spec) [#/Vol] 1.65 10*3/uL 0.83-4.51 [facility] Basophil percentageOrdered B y: Loi Saldana on 03-13-2023 Basophils/100 WBC (Bld) 0.3 % 0-1 [facility] Bilirubin [Mass/Vol] 0.50 mg/dL 0.20-1.00 [facility] Comment on above: For patients on eltr ombopag therapy, use of Dimension [place] TBIL is not recommended. Chloride [Moles/Vol] 107 mmol/L 98-107 [facility] Eosinophils/100 WBC (Bld) 0.8 % 0-5 [facility] Glucose [Mass/Vol] 186 mg/dL 74-106 [facility] Comment on above: Fasting Glucose resu lt greater than or equal to 126 mg/dL suggests DIABETES MELLITUS per A.D.A. criteria. Neutrophils (Bld) [#/Vol] 4.9 10*3/uL 2.0-7.7 [facility] Neutrophils/100 WBC (Bld) 67.1 % 47-70 [facility] Potassium [Moles/Vol] 4.1 mmol/L 3.5-5.1 [facility] Protein [Mass/Vol] 7.4 g/dL 6.4-8.2 [facility] Sodium [Moles/Vol] 137 mmol/L 136-145 [facility] WBC (Bld) [#/Vol] 7.3 10*3/uL 4.4-11.0 [facility] Basophil percentage 0-5 SEEN /hpf 0-5 [facility] Bilirubin Test strip Ql (U)O rdered By: Loi Saldana on 03-13-2023 Bilirubin Ql (U) Negative Negative [facility] Blood erythrocytes count (nu mber/volume)Ordered By: Loi Saldana on 03-13-2023 RBC (Bld) [#/Vol] 5.10 10*6/uL 4.6-6.2 [facility] Blood hemoglobin measurement (mass/volume)Ordered By: Loi Saldana on 03-13-2023 Hemoglobin (Bld) [Mass/Vol] 15.9 g/dL 13.0-16.5 [facility] Blood lymphocytes/100 leukoc ytesOrdered By: Loi Saldana on 03-13-2023 Lymphocytes/100 WBC (Bld) 22.5 % 19-41 [facility] Blood monocytes/100 leukocyt esOrdered By: Loi Saldana on 03-13-2023 Monocytes/100 WBC (Bld) 9.0 % 0-10 [facility] Blood platelet mean volumeOr dered By: Loi Saldana on 03-13-2023 Platelet mean volume (Bld) [Entitic vol] 9.8 fL 6.2-12.0 [facility] Determination of erythrocyte mean corpuscular volume (MCV)Ordered By: Loi Saldana on 03-13-2023 MCV (RBC) [Entitic vol] 93.1 fL 80-94 [facility] Hematocrit Auto (Bld) [Volum e fraction]Ordered By: Loi Saldana on 03-13-2023 Hematocrit (Bld) [Volume fraction] 47.5 % 40-54 [facility] Ketones Test strip Ql (U)Ord ered By: Loi Saldana on 03-13-2023 Ketones Ql (U) Negative Negative [facility] Laboratory - Chemistry and C hemistry - challengeOrdered By: Loi Saldana on 03-13-2023 ALP [Catalytic activity/Vol] 213 U/L 45-117 [facility] ALT [Catalytic activity/Vol] 53 U/L 16-61 [facility] CO2 [Moles/Vol] 21.0 mmol/L 21.0-32.0 [facility] Globulin (S) [Mass/Vol] 3.5 g/dL 2.2-4.2 [facility] Urea nitrogen/Creatinine [Mass ratio] 14.6 mg/mg 10-20 [facility] Laboratory - Hematology and Cell countsOrdered By: Loi Saldana on 03-13-2023 Erythrocyte distribution width (RBC) [Entitic vol] 43.1 fL 35.1-43.9 [facility] Erythrocyte distribution width (RBC) [Ratio] 12.5 % 11.6-14.6 [facility] Immature granulocytes/100 WBC (Bld) 0.300 % 0.0-0.9 [facility] Comment on above: IG% - Immature Granu locytes (promyelocytes, myelocytes and metamyelocytes) > 1% indicates that a LEFT SHIFT is Present. MCH (RBC) [Entitic mass] 31.2 pg 27.0-32.0 [facility] Nucleated RBC/100 WBC (Bld) [Ratio] 0 % 0-5 [facility] MCHC Auto (RBC) [Mass/Vol]Or dered By: Loi Saladna on 03-13-2023 MCHC (RBC) [Mass/Vol] 33.5 g/dL 32-36 [facility] Mucus LM Ql (Urine sed)Order ed By: Loi Saldana on 03-13-2023 Mucus Ql (Urine sed) 0 SEEN /hpf [facility] Nitrite Test strip Ql (U)Ord ered By: Loi Saldana on 03-13-2023 Nitrite Ql (U) Positive Negative [facility] No Panel InformationOrdered By: Loi Saldana on 03-13-2023 Estimated Creatinine Clearance Calc 42.55 ml/min [facility] Estimated GFR (MDRD) Amer 47 mL/min >60 [facility] Comment on above: GFR Calc Estimated GFR (MDRD) Non-Af Amer 39 mL/min >60 [facility] Comment on above: Non- GFR Calc Troponin I High Sensitivity 9 pg/mL 3.0-78.0 [facility] Comment on above: Please Note: New Isha t Units and Gender Specific Reference Ranges. For more information see Policy Stat Procedure [place] High Sensitivity Troponin (TNIH) and attachments. Platelets bldOrdered By: Ryan Saldana on 03-13-2023 Platelets (Bld) [#/Vol] 205 10*3/uL 150-450 [facility] Protein Test strip Ql (U)Ord ered By: Loi Saldana on 03-13-2023 Protein Ql (U) 30 mg/dl Negative [facility] Serum or plasma albumin regi urement (mass/volume)Ordered By: Loi Saldana on 03-13-2023 Albumin [Mass/Vol] 3.9 g/dL 3.2-5.0 [facility] Serum or plasma albumin/glob ulin mass ratioOrdered By: Loi Saldana on 03-13-2023 Albumin/Globulin [Mass ratio] 1.1 {ratio} 0.9-2.4 [facility] Serum or plasma calcium regi urement (mass/volume)Ordered By: Loi [place] on 03-13-2023 Calcium [Mass/Vol] 9.1 mg/dL 8.5-10.1 [facility] Serum or plasma creatinine m easurement (mass/volume)Ordered By: Loi Saldana on 03-13-2023 Creatinine [Mass/Vol] 1.92 mg/dL 0.70-1.30 [facility] Comment on above: The validity of the calculated GFR & GFRAA in patients over 70 years has not been determined. Clinical correlation is essential. Serum or plasma urea nitroge n measurement (mass/volume)Ordered By: Loi Saldana on 03-13-2023 Urea nitrogen [Mass/Vol] 28 mg/dL 7-18 [facility] Squamous epithelial cells de tection in urine sediment by light microscopyOrdered By: Loi Saldana on 03-13-2023 Epithelial cells.squamous LM Ql (Urine sed) 0 SEEN /hpf 0-5 [facility] Thin prep Papanicolaou smear with manual screeningOrdered By: Loi Saldana on 03-13-2023 Thin prep Papanicolaou smear with manual screening 33 U/L 15-37 [facility] Thin prep Papanicolaou smear with manual screening 9 5-15 [facility] Urine blood detectionOrdered By: Loi Saldana on 03-13-2023 RBC Ql (U) 10 /ul Negative [facility] RBC Ql (U) 0 SEEN /hpf 0-5 [facility] Urine clarityOrdered By: Ryan Saldana on 03-13-2023 Clarity (U) Clear Clear [facility] Urine color determinationOrd ered By: Loi Saldana on 03-13-2023 Color (U) Yellow Yellow [facility] Urine glucose detectionOrder ed By: Loi Saldana on 03-13-2023 Glucose Ql (U) 1000 mg/dl Normal [facility] Urine leukocyte esterase det ection by dipstickOrdered By: Loi Saldana on 03-13-2023 Leukocyte esterase Test strip Ql (U) 25 /ul Negative [facility] Urine pHOrdered By: Loi aguilar on 03-13-2023 pH (U) 5.0 [pH] 5.0 - 8.0 [facility] Urine sediment bacteria coun t by microscopy (number/high power field)Ordered By: Loi Saldana on 03-13-2023 Bacteria LM.HPF (Urine sed) [#/Area] RARE /hpf None Seen [facility] Urine specific gravity measu rementOrdered By: Loi Saldana on 03-13-2023 Specific gravity (U) [Rel density] 1.020 1.002-1.030 [facility] Urobilinogen Auto test strip Ql (U)Ordered By: Loi Saldana on 03-13-2023 Urobilinogen Ql (U) 1 mg/dl Normal [facility] Whole blood hemoglobin A1c/t otal hemoglobin ratio (mass fraction)Ordered By: Conchis Meza on 01-11-2023 HbA1c (Bld) [Mass fraction] 9.2 % 3.8-5.6 [facility] Comment on above: Normal < 5.7 % Predi abetic 5.7 - 6.4 % Diabetic >or= 6.5 % Please note range changes. PROTEIN CREATININE RATIOon 0 01-01-2023 Protein/Creatinine (U) [Mass ratio] 0.07 mg/mg <0.15 mg/mg [facility] Protein/Creatinine (U) [Mass ratio]on 01-01-2023 Creatinine (U) [Mass/Vol] 97.1 mg/dL 20.0 - 300.0 mg/dL [facility] Protein (U) [Mass/Vol] 7 mg/dL 0 - 2 0 mg/dL [facility] URINALYSIS, DIPSTICK ONLYon 12-31-2022 Bilirubin Ql (U) Negative Negative [facility] Clarity (Unsp spec) Clear Clear [facility] Color (U) Light Yellow Yellow [facility] Glucose Test strip (U) [Mass/Vol] 1+ Abnormal Trace, Negative [facility] Hemoglobin Ql (U) Negative Negative, Trace [facility] Ketones Ql (U) Negative Negative, Trace [facility] Leukocyte esterase Test strip Ql (U) Negative Negative, 25 Pam/uL [facility] Nitrite Ql (U) Negative Negative [facility] pH (U) 5.0 [pH] 5.0 - 8.0 [facility] Protein (U) [Mass/Vol] Negative Trace , Negative [facility] Specific gravity (U) [Rel density] 1.012 1.005 - 1.030 [facility] Urobilinogen Ql (U) Negative Negative [facility] Acid fast bacilli (AFB) cult ureOrdered By: Dr. Levy on 12-18-2022 Mycobacterium sp identified Org specific cx Nom (Unsp spec) [facility] Thin prep Papanicolaou smear with manual screeningOrdered By: Dr. Levy on 12-05-2022 Thin prep Papanicolaou smear with manual screening [facility] Anaerobic cultureOrdered By: Dr. Levy on 11-06-2022 Bacteria identified Anaer cx Nom (Unsp spec) No growth in 5 days. [facility] - Microbiology an d Antimicrobial susceptibilityOrdered By: Dr. Santiago on 11-06-2022 Bacteria identified Cx Nom (Bld) Negative [facility] Bacteria identified Cx Nom (Bld) No growth in 5 days. [facility] Bacteria identified Cx Nom ( Wound)Ordered By: Dr. Levy on 11-05-2022 Wound Culture Staphylococcus epidermidis [facility] Wound Culture Enterobacter cloacae complex [facility] Wound Culture Staphylococcus epidermidis [facility] Glucose Glucometer (BldC) [M ass/Vol]Ordered By: Dr. Levy on 11-05-2022 Glucose [Mass/Vol] 285 mg/dL 74-106 [facility] Comment on above: MANAGEMENT OF PATIEN T CARE PER NURSING PROTOCOL Serum or plasma C reactive p rotein measurement (mass/volume)Ordered By: Dr. Levy on 11-05-2022 CRP [Mass/Vol] 5.83 mg/L 0.0-3.0 [facility] Comment on above: C-Reactive Protein ( CRP) provides useful information for thediagnosis, therapy and monitoring of inflammatory processesand associated diseases. For the evaluation of Relative Riskfor Cardiovascular Disease, a High Sensitivity CRP (HSCRP)should be ordered. Vancomycin troughOrdered By: Dr. Jara on 11-05-2022 Vancomycin trough [Mass/Vol] 18.4 ug/mL 5.0-15.0 [facility] Comment on above: VANCOMYCIN STANDARED DRUG THERAPY TROUGH LEVEL: 5.0 - 15.0 mg/L VANCOMYCIN HIGH INTENSITY THERAPY TROUGH LEVEL: 15.0 - 20.0 mg/L High Intensity therapy recommended for serious lifethreatening infections include:- [id number]-[id number]-Eiixmhqck (Ventilator/Healtcare Associated)-Sepsis PLEASE CONTACT PHARMACY SERVICES (#[id number]) FOR INTERPRETATIONOF RESULTS. Absolute lymphocyte countOrd ered By: Dr. Niño on 11-04-2022 Lymphocytes Auto (Unsp spec) [#/Vol] 1.64 10*3/uL 0.83-4.51 [facility] Anaerobic cultureOrdered By: Dr. Levy on 11-04-2022 Bacteria identified Anaer cx Nom (Unsp spec) No anaerobic bacteria isolated. [facility] Basophil percentageOrdered B y: Dr. Niño on 11-04-2022 Basophils/100 WBC (Bld) 0.5 % 0-1 [facility] Chloride [Moles/Vol] 114 mmol/L 98-107 [facility] Eosinophils/100 WBC (Bld) 0.8 % 0-5 [facility] Glucose [Mass/Vol] 167 mg/dL 74-106 [facility] Comment on above: Fasting Glucose resu lt greater than or equal to 126 mg/dL suggests DIABETES MELLITUS per A.D.A. criteria. Neutrophils (Bld) [#/Vol] 3.8 10*3/uL 2.0-7.7 [facility] Neutrophils/100 WBC (Bld) 61.4 % 47-70 [facility] Potassium [Moles/Vol] 4.6 mmol/L 3.5-5.1 [facility] Sodium [Moles/Vol] 143 mmol/L 136-145 [facility] WBC (Bld) [#/Vol] 6.2 10*3/uL 4.4-11.0 [facility] Blood erythrocytes count (nu mber/volume)Ordered By: Dr. Niño on 11-04-2022 RBC (Bld) [#/Vol] 4.62 10*6/uL 4.6-6.2 [facility] Blood hemoglobin measurement (mass/volume)Ordered By: Dr. Niño on 11-04-2022 Hemoglobin (Bld) [Mass/Vol] 14.2 g/dL 13.0-16.5 [facility] Blood lymphocytes/100 leukoc ytesOrdered By: Dr. Niño on 11-04-2022 Lymphocytes/100 WBC (Bld) 26.5 % 19-41 [facility] Blood monocytes/100 leukocyt esOrdered By: Dr. Niño on 11-04-2022 Monocytes/100 WBC (Bld) 10.5 % 0-10 [facility] Blood platelet mean volumeOr dered By: Dr. Niño on 11-04-2022 Platelet mean volume (Bld) [Entitic vol] 10.1 fL 6.2-12.0 [facility] Determination of erythrocyte mean corpuscular volume (MCV)Ordered By: Dr. Niño on 11-04-2022 MCV (RBC) [Entitic vol] 95.5 fL 80-94 [facility] Hematocrit Auto (Bld) [Volum e fraction]Ordered By: Dr. Niño on 11-04-2022 Hematocrit (Bld) [Volume fraction] 44.1 % 40-54 [facility] Laboratory - Chemistry and C hemistry - challengeOrdered By: Dr. Niño on 11-04-2022 CO2 [Moles/Vol] 19.0 mmol/L 21.0-32.0 [facility] Urea nitrogen/Creatinine [Mass ratio] 29.9 mg/mg 10-20 [facility] Laboratory - Hematology and Cell countsOrdered By: Dr. Niño on 11-04-2022 Erythrocyte distribution width (RBC) [Entitic vol] 45.1 fL 35.1-43.9 [facility] Erythrocyte distribution width (RBC) [Ratio] 12.9 % 11.6-14.6 [facility] Immature granulocytes/100 WBC (Bld) 0.300 % 0.0-0.9 [facility] Comment on above: IG% - Immature Granu locytes (promyelocytes, myelocytes and metamyelocytes) > 1% indicates that a LEFT SHIFT is Present. MCH (RBC) [Entitic mass] 30.7 pg 27.0-32.0 [facility] Nucleated RBC/100 WBC (Bld) [Ratio] 0 % 0-5 [facility] MCHC Auto (RBC) [Mass/Vol]Or dered By: Dr. Niño on 11-04-2022 MCHC (RBC) [Mass/Vol] 32.2 g/dL 32-36 [facility] No Panel InformationOrdered By: Dr. Niño on 11-04-2022 Estimated Creatinine Clearance Calc 60.33 ml/min [facility] Estimated GFR (MDRD) Amer 70 mL/min >60 [facility] Comment on above: GFR Calc Estimated GFR (MDRD) Non-Af Amer 58 mL/min >60 [facility] Comment on above: Non- GFR Calc Platelets bldOrdered By: Dr. Niño on 11-04-2022 Platelets (Bld) [#/Vol] 184 10*3/uL 150-450 [facility] Serum or plasma calcium regi urement (mass/volume)Ordered By: Dr. Niño on 11-04-2022 Calcium [Mass/Vol] 9.4 mg/dL 8.5-10.1 [facility] Serum or plasma creatinine m easurement (mass/volume)Ordered By: Dr. Niño on 11-04-2022 Creatinine [Mass/Vol] 1.37 mg/dL 0.70-1.30 [facility] Comment on above: The validity of the calculated GFR & GFRAA in patients over 70 years has not been determined. Clinical correlation is essential. Serum or plasma urea nitroge n measurement (mass/volume)Ordered By: Dr. Niño on 11-04-2022 Urea nitrogen [Mass/Vol] 41 mg/dL 7-18 [facility] Serum or plasma vancomycin m easurement (mass/volume)Ordered By: Dr. Smith on 11-04-2022 Vancomycin [Mass/Vol] 16.1 ug/mL 0.0-15.0 [facility] Comment on above: VANCOMYCIN STANDARD DRUG THERAPY: CRITICAL VALUE IS > 15.0 mg/L VANCOMYCIN HIGH INTENSITY THERAPY: CRITICAL VALUE IS > 20.0 mg/L PLEASE CONTACT PHARMACY SERVICES (#[id number]) FOR INTERPRETATIONOF RESULTS. THIS RESULT DOES NOT REPRESENT A PEAK OR TROUGHLEVEL FOR THIS DRUG. Thin prep Papanicolaou smear with manual screeningOrdered By: Dr. Niño on 11-04-2022 Thin prep Papanicolaou smear with manual screening 10 5-15 [facility] Gram stain for investigation of transfusion reactionOrdered By: Dr. Levy on 11-02-2022 Microscopic observation Gram stain Nom (Unsp spec) [facility] No Panel InformationOrdered By: Dr. Santiago on 11-02-2022 Bacteria Detection (PCR) Negative [facility] Absolute lymphocyte countOrd ered By: Dr. Santiago on 11-01-2022 Lymphocytes Auto (Unsp spec) [#/Vol] 1.35 10*3/uL 0.83-4.51 [facility] Basophil percentageOrdered B y: Dr. Santiago on 11-01-2022 Basophil percentage 0 SEEN /hpf 0-5 [facility] Basophils/100 WBC (Bld) 0.3 % 0-1 [facility] Bilirubin [Mass/Vol] 0.50 mg/dL 0.20-1.00 [facility] Comment on above: For patients on eltr ombopag therapy, use of Dimension [place] TBIL is not recommended. Chloride [Moles/Vol] 108 mmol/L 98-107 [facility] Eosinophils/100 WBC (Bld) 0.9 % 0-5 [facility] Glucose [Mass/Vol] 266 mg/dL 74-106 [facility] Comment on above: Glucose result great er than or equal to 200 mg/dLsuggests DIABETES MELLITUS per A.D.A. criteria. Lactate [Moles/Vol] 1.4 mmol/L 0.4-2.0 [facility] Neutrophils (Bld) [#/Vol] 4.3 10*3/uL 2.0-7.7 [facility] Neutrophils/100 WBC (Bld) 67.5 % 47-70 [facility] Potassium [Moles/Vol] 5.2 mmol/L 3.5-5.1 [facility] Comment on above: Slight Hemolysis, Re sult may be falsely increased. Protein [Mass/Vol] 7.2 g/dL 6.4-8.2 [facility] Sodium [Moles/Vol] 139 mmol/L 136-145 [facility] WBC (Bld) [#/Vol] 6.4 10*3/uL 4.4-11.0 [facility] Bilirubin Test strip Ql (U)O rdered By: Dr. Santiago on 11-01-2022 Bilirubin Ql (U) Negative Negative [facility] Blood erythrocytes count (nu mber/volume)Ordered By: Dr. Santiago on 11-01-2022 RBC (Bld) [#/Vol] 5.23 10*6/uL 4.6-6.2 [facility] Blood hemoglobin measurement (mass/volume)Ordered By: Dr. Santiago on 11-01-2022 Hemoglobin (Bld) [Mass/Vol] 15.9 g/dL 13.0-16.5 [facility] Blood lymphocytes/100 leukoc ytesOrdered By: Dr. Santiago on 11-01-2022 Lymphocytes/100 WBC (Bld) 21.1 % 19-41 [facility] Blood monocytes/100 leukocyt esOrdered By: Dr. Santiago on 11-01-2022 Monocytes/100 WBC (Bld) 9.7 % 0-10 [facility] Blood platelet mean volumeOr dered By: Dr. Santiago on 11-01-2022 Platelet mean volume (Bld) [Entitic vol] 9.9 fL 6.2-12.0 [facility] COVID-19 virus antigen assay Ordered By: Dr. Amor on 11-01-2022 SARS-CoV-2 (COVID-19) Ag IA.rapid Ql (Resp) [facility] Determination of erythrocyte mean corpuscular volume (MCV)Ordered By: Dr. Santiago on 11-01-2022 MCV (RBC) [Entitic vol] 95.0 fL 80-94 [facility] Erythrocyte sedimentation ra teOrdered By: Dr. Santiago on 11-01-2022 ESR (Bld) [Velocity] 10 mm/h 0-20 [facility] Glucose Glucometer (BldC) [M ass/Vol]Ordered By: Dr. Levy on 11-01-2022 Glucose [Mass/Vol] 264 mg/dL 74-106 [facility] Comment on above: MANAGEMENT OF PATIEN T CARE PER NURSING PROTOCOL Hematocrit Auto (Bld) [Volum e fraction]Ordered By: Dr. Santiago on 11-01-2022 Hematocrit (Bld) [Volume fraction] 49.7 % 40-54 [facility] INR in Blood by Coagulation assayOrdered By: Dr. Santiago on 11-01-2022 INR Coag (Bld) [Relative time] 1.1 {INR} [facility] Ketones Test strip Ql (U)Ord ered By: Dr. Santiago on 11-01-2022 Ketones Ql (U) Negative Negative [facility] Laboratory - Chemistry and C hemistry - challengeOrdered By: Dr. Santiago on 11-01-2022 ALP [Catalytic activity/Vol] 156 U/L 45-117 [facility] ALT [Catalytic activity/Vol] 41 U/L 16-61 [facility] CO2 [Moles/Vol] 25.0 mmol/L 21.0-32.0 [facility] Globulin (S) [Mass/Vol] 3.7 g/dL 2.2-4.2 [facility] Urea nitrogen/Creatinine [Mass ratio] 22.7 mg/mg 10-20 [facility] Laboratory - CoagulationOrde red By: Dr. Santiago on 11-01-2022 aPTT Coag (Bld) [Time] 28.9 s 24.1-36.2 [facility] PT Coag (PPP) [Time] 13.4 s 11.7-14.9 [facility] Laboratory - Hematology and Cell countsOrdered By: Dr. Santiago on 11-01-2022 Erythrocyte distribution width (RBC) [Entitic vol] 44.9 fL 35.1-43.9 [facility] Erythrocyte distribution width (RBC) [Ratio] 12.7 % 11.6-14.6 [facility] Immature granulocytes/100 WBC (Bld) 0.500 % 0.0-0.9 [facility] Comment on above: IG% - Immature Granu locytes (promyelocytes, myelocytes and metamyelocytes) > 1% indicates that a LEFT SHIFT is Present. MCH (RBC) [Entitic mass] 30.4 pg 27.0-32.0 [facility] Nucleated RBC/100 WBC (Bld) [Ratio] 0 % 0-5 [facility] MCHC Auto (RBC) [Mass/Vol]Or dered By: Dr. Santiago on 11-01-2022 MCHC (RBC) [Mass/Vol] 32.0 g/dL 32-36 [facility] Mucus LM Ql (Urine sed)Order ed By: Dr. Santiago on 11-01-2022 Mucus Ql (Urine sed) 0 SEEN /hpf [facility] Nitrite Test strip Ql (U)Ord ered By: Dr. Santiago on 11-01-2022 Nitrite Ql (U) Negative Negative [facility] No Panel InformationOrdered By: Dr. Santiago on 11-01-2022 Estimated Creatinine Clearance Calc 50.71 ml/min [facility] Estimated GFR (MDRD) Amer 57 mL/min >60 [facility] Comment on above: GFR Calc Estimated GFR (MDRD) Non-Af Amer 47 mL/min >60 [facility] Comment on above: Non- GFR Calc Platelets bldOrdered By: Dr. Santiago on 11-01-2022 Platelets (Bld) [#/Vol] 199 10*3/uL 150-450 [facility] Protein Test strip Ql (U)Ord ered By: Dr. Santiago on 11-01-2022 Protein Ql (U) Negative Negative [facility] Serum or plasma C reactive p rotein measurement (mass/volume)Ordered By: Dr. Santiago on 11-01-2022 CRP [Mass/Vol] 10.80 mg/L 0.0-3.0 [facility] Comment on above: C-Reactive Protein ( CRP) provides useful information for thediagnosis, therapy and monitoring of inflammatory processesand associated diseases. For the evaluation of Relative Riskfor Cardiovascular Disease, a High Sensitivity CRP (HSCRP)should be ordered. Serum or plasma albumin regi urement (mass/volume)Ordered By: Dr. Santiago on 11-01-2022 Albumin [Mass/Vol] 3.5 g/dL 3.2-5.0 [facility] Serum or plasma albumin/glob ulin mass ratioOrdered By: Dr. Santiago on 11-01-2022 Albumin/Globulin [Mass ratio] 0.9 {ratio} 0.9-2.4 [facility] Serum or plasma calcium regi urement (mass/volume)Ordered By: Dr. Santiago on 11-01-2022 Calcium [Mass/Vol] 9.6 mg/dL 8.5-10.1 [facility] Serum or plasma creatinine m easurement (mass/volume)Ordered By: Dr. Santiago on 11-01-2022 Creatinine [Mass/Vol] 1.63 mg/dL 0.70-1.30 [facility] Comment on above: The validity of the calculated GFR & GFRAA in patients over 70 years has not been determined. Clinical correlation is essential. Serum or plasma urea nitroge n measurement (mass/volume)Ordered By: Dr. Santiago on 11-01-2022 Urea nitrogen [Mass/Vol] 37 mg/dL 7-18 [facility] Squamous epithelial cells de tection in urine sediment by light microscopyOrdered By: Dr. Santiago on 11-01-2022 Epithelial cells.squamous LM Ql (Urine sed) 0 SEEN /hpf 0-5 [facility] Thin prep Papanicolaou smear with manual screeningOrdered By: Dr. Santiago on 11-01-2022 Thin prep Papanicolaou smear with manual screening 23 U/L 15-37 [facility] Comment on above: Slight Hemolysis, Re sult may be falsely increased. Thin prep Papanicolaou smear with manual screening 6 5-15 [facility] Urine blood detectionOrdered By: Dr. Santiago on 11-01-2022 RBC Ql (U) 10 /ul Negative [facility] RBC Ql (U) 0 SEEN /hpf 0-5 [facility] Urine clarityOrdered By: Dr. Santiago on 11-01-2022 Clarity (U) Clear Clear [facility] Urine color determinationOrd ered By: Dr. Santiago on 11-01-2022 Color (U) Yellow Yellow [facility] Urine glucose detectionOrder ed By: Dr. Santiago on 11-01-2022 Glucose Ql (U) 1000 mg/dl Normal [facility] Urine leukocyte esterase det ection by dipstickOrdered By: Dr. Santiago on 11-01-2022 Leukocyte esterase Test strip Ql (U) Negative Negative [facility] Urine pHOrdered By: Dr. Jay ramirez on 11-01-2022 pH (U) 6.0 [pH] 5.0 - 8.0 [facility] Urine sediment bacteria coun t by microscopy (number/high power field)Ordered By: Dr. Santiago on 11-01-2022 Bacteria LM.HPF (Urine sed) [#/Area] 0 /[HPF] None Seen [facility] Urine specific gravity measu rementOrdered By: Dr. Santiago on 11-01-2022 Specific gravity (U) [Rel density] 1.030 1.002-1.030 [facility] Urobilinogen Auto test strip Ql (U)Ordered By: Dr. Santiago on 11-01-2022 Urobilinogen Ql (U) 1 mg/dl Normal [facility] Anaerobic cultureOrdered By: Dona Medina on 10-28-2022 Bacteria identified Anaer cx Nom (Unsp spec) No anaerobic bacteria isolated. [facility] Bacteria identified Cx Nom ( Wound)Ordered By: Dona Medina on 10-28-2022 Wound Culture Staphylococcus epidermidis [facility] Wound Culture Pseudomonas aeroginosa [facility] Gram stain for investigation of transfusion reactionOrdered By: Dona Medina on 10-26-2022 Microscopic observation Gram stain Nom (Unsp spec) [facility] PROTEIN CREATININE RATIOon 0 09-24-2022 Protein/Creatinine (U) [Mass ratio] 0.07 mg/mg <0.15 mg/mg [facility] Protein/Creatinine (U) [Mass ratio]on 09-24-2022 Creatinine (U) [Mass/Vol] 76.2 mg/dL 20.0 - 300.0 mg/dL [facility] Protein (U) [Mass/Vol] 5 mg/dL 0 - 2 0 mg/dL [facility] URINALYSIS, DIPSTICK ONLYon 09-24-2022 Bilirubin Ql (U) Negative Negative [facility] Clarity (Unsp spec) Clear Clear [facility] Color (U) Light Yellow Yellow [facility] Glucose Test strip (U) [Mass/Vol] 3+ Abnormal Trace, Negative [facility] Hemoglobin Ql (U) Negative Negative, Trace [facility] Ketones Ql (U) Negative Negative, Trace [facility] Leukocyte esterase Test strip Ql (U) Negative Negative, 25 Pam/mL [facility] Nitrite Ql (U) Negative Negative [facility] pH (U) 6.0 [pH] 5.0 - 8.0 [facility] Protein (U) [Mass/Vol] Negative Trace , Negative [facility] Specific gravity (U) [Rel density] 1.013 1.005 - 1.030 [facility] Urobilinogen Ql (U) Negative Negative [facility] Glucose Glucometer (BldC) [M ass/Vol]Ordered By: Dona Medina on 09-11-2022 Glucose [Mass/Vol] 247 mg/dL 74-106 [facility] Comment on above: MANAGEMENT OF PATIEN T CARE PER NURSING PROTOCOL Laboratory - Hematology and Cell countson 09-06-2022 HbA1c (Bld) [Mass fraction] 9.9 % [facility] Glucose Glucometer (BldC) [M ass/Vol]Ordered By: Dona Medina on 09-05-2022 Glucose [Mass/Vol] 176 mg/dL 74-106 [facility] Comment on above: MANAGEMENT OF PATIEN T CARE PER NURSING PROTOCOL Absolute lymphocyte countOrd ered By: Dr. Barroso on 08-28-2022 Lymphocytes Auto (Unsp spec) [#/Vol] 1.20 10*3/uL 0.83-4.51 [facility] Basophil percentageOrdered B y: Dr. Barroso on 08-28-2022 Basophils/100 WBC (Bld) 0.3 % 0-1 [facility] Bilirubin [Mass/Vol] 0.50 mg/dL 0.20-1.00 [facility] Comment on above: For patients on eltr ombopag therapy, use of Dimension [place] TBIL is not recommended. Chloride [Moles/Vol] 112 mmol/L 98-107 [facility] Eosinophils/100 WBC (Bld) 0.7 % 0-5 [facility] Glucose [Mass/Vol] 104 mg/dL 74-106 [facility] Comment on above: Fasting Glucose resu lt from 100 to 125 mg/dL suggests IMPAIRED HOMEOSTASIS per A.D.A. criteria. Neutrophils (Bld) [#/Vol] 8.3 10*3/uL 2.0-7.7 [facility] Neutrophils/100 WBC (Bld) 79.7 % 47-70 [facility] Potassium [Moles/Vol] 4.3 mmol/L 3.5-5.1 [facility] Protein [Mass/Vol] 7.3 g/dL 6.4-8.2 [facility] Sodium [Moles/Vol] 142 mmol/L 136-145 [facility] WBC (Bld) [#/Vol] 10.3 10*3/uL 4.4-11.0 [facility] Blood erythrocytes count (nu mber/volume)Ordered By: Dr. Barroso on 08-28-2022 RBC (Bld) [#/Vol] 5.13 10*6/uL 4.6-6.2 [facility] Blood hemoglobin measurement (mass/volume)Ordered By: Dr. Barroso on 08-28-2022 Hemoglobin (Bld) [Mass/Vol] 15.2 g/dL 13.0-16.5 [facility] Blood lymphocytes/100 leukoc ytesOrdered By: Dr. Barroso on 08-28-2022 Lymphocytes/100 WBC (Bld) 11.6 % 19-41 [facility] Blood monocytes/100 leukocyt esOrdered By: Dr. Barroso on 08-28-2022 Monocytes/100 WBC (Bld) 7.2 % 0-10 [facility] Blood platelet mean volumeOr dered By: Dr. Barroso on 08-28-2022 Platelet mean volume (Bld) [Entitic vol] 9.4 fL 6.2-12.0 [facility] Determination of erythrocyte mean corpuscular volume (MCV)Ordered By: Dr. Barroso on 08-28-2022 MCV (RBC) [Entitic vol] 92.6 fL 80-94 [facility] Glucose Glucometer (BldC) [M ass/Vol]Ordered By: Dr. Barroso on 08-28-2022 Glucose [Mass/Vol] 118 mg/dL 74-106 [facility] Comment on above: MANAGEMENT OF PATIEN T CARE PER NURSING PROTOCOL Glucose Glucometer (BldC) [M ass/Vol]on 08-28-2022 Glucose [Mass/Vol] 60 mg/dL 74-106 [facility] Work Phone: Comment on above: MANAGEMENT OF PATIEN T CARE PER NURSING PROTOCOL Hematocrit Auto (Bld) [Volum e fraction]Ordered By: Dr. Barroso on 08-28-2022 Hematocrit (Bld) [Volume fraction] 47.5 % 40-54 [facility] Laboratory - Chemistry and C hemistry - challengeOrdered By: Dr. Barroso on 08-28-2022 ALP [Catalytic activity/Vol] 174 U/L 45-117 [facility] ALT [Catalytic activity/Vol] 54 U/L 16-61 [facility] CO2 [Moles/Vol] 26.0 mmol/L 21.0-32.0 [facility] Globulin (S) [Mass/Vol] 3.8 g/dL 2.2-4.2 [facility] Urea nitrogen/Creatinine [Mass ratio] 23.6 mg/mg 10-20 [facility] Laboratory - Hematology and Cell countsOrdered By: Dr. Barroso on 08-28-2022 Erythrocyte distribution width (RBC) [Entitic vol] 44.8 fL 35.1-43.9 [facility] Erythrocyte distribution width (RBC) [Ratio] 13.2 % 11.6-14.6 [facility] Immature granulocytes/100 WBC (Bld) 0.500 % 0.0-0.9 [facility] Comment on above: IG% - Immature Granu locytes (promyelocytes, myelocytes and metamyelocytes) > 1% indicates that a LEFT SHIFT is Present. MCH (RBC) [Entitic mass] 29.6 pg 27.0-32.0 [facility] Nucleated RBC/100 WBC (Bld) [Ratio] 0 % 0-5 [facility] MCHC Auto (RBC) [Mass/Vol]Or dered By: Dr. Barroso on 08-28-2022 MCHC (RBC) [Mass/Vol] 32.0 g/dL 32-36 [facility] No Panel InformationOrdered By: Dr. Barroso on 08-28-2022 Estimated Creatinine Clearance Calc 57.40 ml/min [facility] Estimated GFR (MDRD) Amer 66 mL/min >60 [facility] Comment on above: GFR Calc Estimated GFR (MDRD) Non-Af Amer 54 mL/min >60 [facility] Comment on above: Non- GFR Calc Platelets bldOrdered By: Dr. Barroso on 08-28-2022 Platelets (Bld) [#/Vol] 210 10*3/uL 150-450 [facility] Serum or plasma albumin regi urement (mass/volume)Ordered By: Dr. Barroso on 08-28-2022 Albumin [Mass/Vol] 3.5 g/dL 3.2-5.0 [facility] Serum or plasma albumin/glob ulin mass ratioOrdered By: Dr. Barroso on 08-28-2022 Albumin/Globulin [Mass ratio] 0.9 {ratio} 0.9-2.4 [facility] Serum or plasma calcium regi urement (mass/volume)Ordered By: Dr. Barroso on 08-28-2022 Calcium [Mass/Vol] 9.4 mg/dL 8.5-10.1 [facility] Serum or plasma creatinine m easurement (mass/volume)Ordered By: Dr. Barroso on 08-28-2022 Creatinine [Mass/Vol] 1.44 mg/dL 0.70-1.30 [facility] Comment on above: The validity of the calculated GFR & GFRAA in patients over 70 years has not been determined. Clinical correlation is essential. Serum or plasma urea nitroge n measurement (mass/volume)Ordered By: Dr. Barroso on 08-28-2022 Urea nitrogen [Mass/Vol] 34 mg/dL 7-18 [facility] Thin prep Papanicolaou smear with manual screeningOrdered By: Dr. Barroso on 08-28-2022 Thin prep Papanicolaou smear with manual screening 26 U/L 15-37 [facility] Thin prep Papanicolaou smear with manual screening 4 5-15 [facility] Glucose Glucometer (BldC) [M ass/Vol]Ordered By: Dona Medina on 08-08-2022 Glucose [Mass/Vol] 197 mg/dL 74-106 [facility] Comment on above: MANAGEMENT OF PATIEN T CARE PER NURSING PROTOCOL PROTEIN CREATININE RATIOon 1 10-03-2021 Protein/Creatinine (U) [Mass ratio] 0.08 mg/mg <0.15 mg/mg [facility] Protein/Creatinine (U) [Mass ratio]on 08-03-2022 Creatinine (U) [Mass/Vol] 80.0 mg/dL 20.0 - 300.0 mg/dL [facility] Protein (U) [Mass/Vol] 6 mg/dL 0 - 2 0 mg/dL [facility] URINALYSIS, DIPSTICK ONLYon 08-03-2022 Bilirubin Ql (U) Negative Negative [facility] Clarity (Unsp spec) Clear Clear [facility] Color (U) Light Yellow Yellow [facility] Glucose Test strip (U) [Mass/Vol] 3+ Abnormal Negative [facility] Hemoglobin Ql (U) Trace Abnormal Negative [facility] Ketones Ql (U) Negative Negative [facility] Leukocyte esterase Test strip Ql (U) Negative Negative [facility] Nitrite Ql (U) Negative Negative [facility] pH (U) 5.5 [pH] 5.0 - 8.0 [facility] Protein (U) [Mass/Vol] Negative Negative [facility] Specific gravity (U) [Rel density] 1.015 1.005 - 1.030 [facility] Urobilinogen Ql (U) Negative Negative [facility] HEMOGLOBIN A1C (POC)on 07-13 HbA1c (Bld) [Mass fraction] 10.6 % Abnormal 4.2 - 5.6 % [facility] Glucose Glucometer (BldC) [M ass/Vol]Ordered By: Dona Medina on 07-09-2022 Glucose [Mass/Vol] 227 mg/dL 74-106 [facility] Comment on above: MANAGEMENT OF PATIEN T CARE PER NURSING PROTOCOL PROTEIN CREATININE RATIOon 1 Protein/Creatinine (U) [Mass ratio] 0.12 mg/mg <0.15 mg/mg [facility] Protein/Creatinine (U) [Mass ratio]on 07-05-2022 Creatinine (U) [Mass/Vol] 65.0 mg/dL 20.0 - 300.0 mg/dL [facility] Protein (U) [Mass/Vol] 8 mg/dL 0 - 2 0 mg/dL [facility] URINALYSIS, DIPSTICK ONLYon 07-05-2022 Bilirubin Ql (U) Negative Negative [facility] Clarity (Unsp spec) Clear Clear [facility] Color (U) Light Yellow Yellow [facility] Glucose Test strip (U) [Mass/Vol] 4+ Abnormal Negative [facility] Hemoglobin Ql (U) Negative Negative [facility] Ketones Ql (U) Negative Negative [facility] Leukocyte esterase Test strip Ql (U) Negative Negative [facility] Nitrite Ql (U) Negative Negative [facility] pH (U) 6.0 [pH] 5.0 - 8.0 [facility] Protein (U) [Mass/Vol] Negative Negative [facility] Specific gravity (U) [Rel density] 1.015 1.005 - 1.030 [facility] Urobilinogen Ql (U) Negative Negative [facility] CBC W Auto Differential pane l (Bld)on 06-08-2022 Abs Immature Gran 0.08 k/uL <0.10 k/uL [facility] Basophils (Bld) [#/Vol] 0.04 10*3/uL <0.11 k/uL [facility] Basophils/100 WBC (Bld) 0.4 % [facility] Differential cell count method Nom (Bld) Auto [facility] Eosinophils (Bld) [#/Vol] <0.46 k/uL [facility] Eosinophils/100 WBC (Bld) 0.2 % [facility] Erythrocyte distribution width (RBC) [Ratio] 13.1 % 11.5 - 15.0 % [facility] Hematocrit (Bld) [Volume fraction] 49.2 % 39.0 - 51.0 % [facility] Hemoglobin (Bld) [Mass/Vol] 15.8 g/dL 13.0 - 17.0 g/dL [facility] Immature Gran % 0.7 % [facility] Lymphocytes (Bld) [#/Vol] 1.42 10*3/uL 1.00 - 4.00 k/uL [facility] Lymphocytes/100 WBC (Bld) 12.6 % [facility] MCH (RBC) [Entitic mass] 28.8 pg 26. 0 - 34.0 pg [facility] MCHC (RBC) [Mass/Vol] 32.1 g/dL 30.5 - 36.0 g/dL [facility] MCV (RBC) [Entitic vol] 89.6 fL 80.0 - 100.0 fL [facility] Monocytes (Bld) [#/Vol] 0.99 10*3/uL High <0.87 k/uL [facility] Monocytes/100 WBC (Bld) 8.8 % C [facility] Neutrophils (Bld) [#/Vol] 8.70 10*3/uL High 1.45 - 7.50 k/uL [facility] Neutrophils/100 WBC (Bld) 77.3 % [facility] Nucleated RBC (Bld) [#/Vol] <0.01 k/uL [facility] Nucleated RBC/100 WBC (Bld) [Ratio] 0.0 /100 WBC [facility] Platelet mean volume (Bld) [Entitic vol] 9.8 fL 9.0 - 12.7 fL [facility] Platelets (Bld) [#/Vol] 273 10*3/uL 150 - 400 k/uL [facility] RBC (Bld) [#/Vol] 5.49 10*6/uL 4.20 - 6.0 0 m/uL [facility] WBC (Bld) [#/Vol] 11.25 10*3/uL High 3.70 - 11.00 k/uL [facility] CMV DNA DETECTION AND QUANTo n 06-08-2022 CMV DNA CARMEN+probe Qn (P) Not detected CMV DNA Not Detected [facility] Comprehensive metabolic 2000 panelon 06-08-2022 Albumin [Mass/Vol] 3.9 g/dL 3.9 - 4.9 g/dL [facility] ALP [Catalytic activity/Vol] 259 U/L High 38 - 113 U/L [facility] ALT [Catalytic activity/Vol] 62 U/L High 10 - 54 U/L [facility] Anion gap [Moles/Vol] 12 mmol/L 9 - 18 mmol/L [facility] AST [Catalytic activity/Vol] 39 U/L 14 - 40 U/L [facility] Bilirubin [Mass/Vol] 0.4 mg/dL 0.2 - 1 .3 mg/dL [facility] Calcium [Mass/Vol] 10.5 mg/dL High 8.5 - 10. 2 mg/dL [facility] Chloride [Moles/Vol] 102 mmol/L 97 - 10 5 mmol/L [facility] CO2 [Moles/Vol] 23 mmol/L 22 - 30 mmol/L [facility] Creatinine [Mass/Vol] 1.58 mg/dL High 0.73 - 1.22 mg/dL [facility] Estimated Glomerular Filtration Rate 52 mL/min/1.73m Low >=60 mL/min/1.73 m [facility] Glucose [Mass/Vol] 204 mg/dL High 74 - 99 mg/dL [facility] Potassium [Moles/Vol] 4.9 mmol/L 3.7 - 5.1 mmol/L [facility] Protein [Mass/Vol] 7.4 g/dL 6.3 - 8.0 g/dL [facility] Sodium [Moles/Vol] 137 mmol/L 136 - 144 mmol/L [facility] Urea nitrogen [Mass/Vol] 31 mg/dL High 9 - 24 mg/dL [facility] Laboratory - Microbiology an d Antimicrobial susceptibilityon 06-08-2022 BK virus DNA CARMEN+probe [#/Vol] Not detected BK Virus DNA Not Detected by PCR. [facility] MAGNESIUM BLDon 06-08-2022 Magnesium [Mass/Vol] 1.7 mg/dL 1.7 - 2 .3 mg/dL [facility] PHOSPHORUS INORGANICon 06-08 Phosphate [Mass/Vol] 2.0 mg/dL Low 2.7 - 4 .8 mg/dL [facility] PROTEIN CREATININE RATIOon 0 06-08-2022 Protein/Creatinine (U) [Mass ratio] 67 mg/g <150 mg/g [facility] Protein/Creatinine (U) [Mass ratio]on 06-08-2022 Creatinine (U) [Mass/Vol] 74.7 mg/dL 20.0 - 300.0 mg/dL [facility] Protein (U) [Mass/Vol] 5 mg/dL 0 - 2 0 mg/dL [facility] TACROLIMUS/[id number] BLon 06-08 Tacrolimus (Bld) [Mass/Vol] 9.9 ng/mL 5.0 - 20.0 ng/mL [facility] URINALYSIS, DIPSTICK ONLYon 06-08-2022 Bilirubin Ql (U) Negative Negative [facility] Clarity (Unsp spec) Clear Clear [facility] Color (U) Light Yellow Yellow [facility] Glucose Test strip (U) [Mass/Vol] 4+ Abnormal Negative [facility] Hemoglobin Ql (U) 2+ Abnormal Negative [facility] Ketones Ql (U) Negative Negative [facility] Leukocyte esterase Test strip Ql (U) Negative Negative [facility] Nitrite Ql (U) Negative Negative [facility] pH (U) 6.0 [pH] 5.0 - 8.0 [facility] Protein (U) [Mass/Vol] Negative Negative [facility] Specific gravity (U) [Rel density] 1.016 1.005 - 1.030 [facility] Urobilinogen Ql (U) Negative Negative [facility] Basophil percentageon 2021 Bilirubin [Mass/Vol] 0.40 mg/dL 0.20-1.00 [facility] Work Phone: Comment on above: For patients on eltr ombopag therapy, use of Dimension [place] TBIL is not recommended. Chloride [Moles/Vol] 103 mmol/L 98-107 [facility] Work Phone: Glucose [Mass/Vol] 175 mg/dL 74-106 [facility] Work Phone: Comment on above: Fasting Glucose resu lt greater than or equal to 126 mg/dL suggests DIABETES MELLITUS per A.D.A. criteria. Potassium [Moles/Vol] 4.6 mmol/L 3.5-5.1 [facility] Work Phone: Protein [Mass/Vol] 7.8 g/dL 6.4-8.2 [facility] Work Phone: Sodium [Moles/Vol] 139 mmol/L 136-145 [facility] Work Phone: Erythrocyte sedimentation ra bk 05-31-2022 ESR (Bld) [Velocity] 30 mm/h 0-20 [facility] Work Phone: Laboratory - Chemistry and C hemistry - challengeon 05-31-2022 ALP [Catalytic activity/Vol] 258 U/L 45-117 [facility] Work Phone: ALT [Catalytic activity/Vol] 68 U/L 16-61 [facility] Work Phone: CO2 [Moles/Vol] 30.0 mmol/L 21.0-32.0 [facility] Work Phone: Globulin (S) [Mass/Vol] 4.6 g/dL 2.2-4.2 [facility] Work Phone: Urea nitrogen/Creatinine [Mass ratio] 21.9 mg/mg 10-20 [facility] Work Phone: No Panel Informationon 05-31 Estimated Creatinine Clearance Calc 51.66 ml/min [facility] Work Phone: Estimated GFR (MDRD) Amer 58 mL/min >60 [facility] Work Phone: Comment on above: GFR Calc Estimated GFR (MDRD) Non-Af Amer 48 mL/min >60 [facility] Work Phone: Comment on above: Non- GFR Calc Serum or plasma albumin regi urement (mass/volume)on 05-31-2022 Albumin [Mass/Vol] 3.2 g/dL 3.2-5.0 [facility] Work Phone: Serum or plasma albumin/glob ulin mass ratioon 05-31-2022 Albumin/Globulin [Mass ratio] 0.7 {ratio} 0.9-2.4 [facility] Work Phone: Serum or plasma calcium regi urement (mass/volume)on 05-31-2022 Calcium [Mass/Vol] 10.1 mg/dL 8.5-10.1 [facility] Work Phone: Serum or plasma creatinine m easurement (mass/volume)on 05-31-2022 Creatinine [Mass/Vol] 1.60 mg/dL 0.70-1.30 [facility] Work Phone: Comment on above: The validity of the calculated GFR & GFRAA in patients over 70 years has not been determined. Clinical correlation is essential. Serum or plasma transthyreti n measurement (mass/volume)on 05-31-2022 Prealbumin [Mass/Vol] 21.0 mg/dL 20.0-40.0 [facility] Work Phone: Serum or plasma urea nitroge n measurement (mass/volume)on 05-31-2022 Urea nitrogen [Mass/Vol] 35 mg/dL 7-18 [facility] Work Phone: Thin prep Papanicolaou smear with manual screeningon 05-31-2022 Thin prep Papanicolaou smear with manual screening 30 U/L 15-37 [facility] Work Phone: Thin prep Papanicolaou smear with manual screening 6 5-15 [facility] Work Phone: Whole blood hemoglobin A1c/t otal hemoglobin ratio (mass fraction)on 05-31-2022 HbA1c (Bld) [Mass fraction] 10.5 % 3.8-5.6 [facility] Work Phone: Comment on above: Normal < 5.7 % Predi abetic 5.7 - 6.4 % Diabetic >or= 6.5 % Please note range changes. Basophil percentageon 2021 Chloride [Moles/Vol] 104 mmol/L 98-107 [facility] Work Phone: Glucose [Mass/Vol] 361 mg/dL 74-106 [facility] Work Phone: Comment on above: Glucose result great er than or equal to 200 mg/dLsuggests DIABETES MELLITUS per A.D.A. criteria. Potassium [Moles/Vol] 5.0 mmol/L 3.5-5.1 [facility] Work Phone: Sodium [Moles/Vol] 137 mmol/L 136-145 [facility] Work Phone: WBC (Bld) [#/Vol] 6.7 10*3/uL 4.4-11.0 [facility] Work Phone: Blood erythrocytes count (nu mber/volume)on 04-30-2022 RBC (Bld) [#/Vol] 5.09 10*6/uL 4.6-6.2 [facility]: Blood hemoglobin measurement (mass/volume)on 04-30-2022 Hemoglobin (Bld) [Mass/Vol] 15.0 g/dL 13.0-16.5 [facility] Work Phone: Blood platelet mean volumeon 04-30-2022 Platelet mean volume (Bld) [Entitic vol] 10.8 fL 6.2-12.0 [facility] Work Phone: Determination of erythrocyte mean corpuscular volume (MCV)on 04-30-2022 MCV (RBC) [Entitic vol] 93.3 fL 80-94 [facility] Work Phone: Erythrocyte sedimentation ra bk 04-30-2022 ESR (Bld) [Velocity] 42 mm/h 0-20 [facility] Work Phone: Hematocrit Auto (Bld) [Volum e fraction]on 04-30-2022 Hematocrit (Bld) [Volume fraction] 47.5 % 40-54 [facility] Work Phone: Laboratory - Chemistry and C hemistry - challengeon 04-30-2022 CO2 [Moles/Vol] 26.0 mmol/L 21.0-32.0 [facility] Work Phone: Urea nitrogen/Creatinine [Mass ratio] 22.2 mg/mg 10-20 [facility] Work Phone: Laboratory - Hematology and Cell countson 04-30-2022 Erythrocyte distribution width (RBC) [Entitic vol] 50.6 fL 35.1-43.9 [facility] Work Phone: Erythrocyte distribution width (RBC) [Ratio] 14.6 % 11.6-14.6 [facility] Work Phone: MCH (RBC) [Entitic mass] 29.5 pg 27.0-32.0 [facility] Work Phone: MCHC Auto (RBC) [Mass/Vol]on 04-30-2022 MCHC (RBC) [Mass/Vol] 31.6 g/dL 32-36 [facility] Work Phone: No Panel Informationon 04-30 Estimated GFR (MDRD) Amer 61 mL/min >60 [facility] Work Phone: Comment on above: GFR Calc Estimated GFR (MDRD) Non-Af Amer 51 mL/min >60 [facility] Work Phone: Comment on above: Non- GFR Calc Platelets bldon 04-30-2022 Platelets (Bld) [#/Vol] 227 10*3/uL 150-450 [facility] Work Phone: Serum or plasma calcium regi urement (mass/volume)on 04-30-2022 Calcium [Mass/Vol] 9.4 mg/dL 8.5-10.1 [facility] Work Phone: Serum or plasma creatinine m easurement (mass/volume)on 04-30-2022 Creatinine [Mass/Vol] 1.53 mg/dL 0.70-1.30 [facility] Work Phone: Comment on above: The validity of the calculated GFR & GFRAA in patients over 70 years has not been determined. Clinical correlation is essential. Serum or plasma urea nitroge n measurement (mass/volume)on 04-30-2022 Urea nitrogen [Mass/Vol] 34 mg/dL 7-18 [facility] Work Phone: Thin prep Papanicolaou smear with manual screeningon 04-30-2022 Thin prep Papanicolaou smear with manual screening 7 -15 [facility] Work Phone: Vancomycin troughon 04-30-20 Vancomycin trough [Mass/Vol] 11.0 ug/mL 5.0-15.0 [facility] Work Phone: Comment on above: VANCOMYCIN STANDARED DRUG THERAPY TROUGH LEVEL: 5.0 - 15.0 mg/L VANCOMYCIN HIGH INTENSITY THERAPY TROUGH LEVEL: 15.0 - 20.0 mg/L High Intensity therapy recommended for serious lifethreatening infections include:- Hpzrfuhyci-Ywozgmjyfivh-Hdmfoxyhx (Ventilator/Healtcare Associated)-Sepsis PLEASE CONTACT PHARMACY SERVICES (#[id number]) FOR INTERPRETATIONOF RESULTS. Serum or plasma vancomycin m easurement (mass/volume)on 04-23-2022 Vancomycin [Mass/Vol] 13.7 ug/mL 0.0-15.0 [facility] Work Phone: Comment on above: VANCOMYCIN STANDARD DRUG THERAPY: CRITICAL VALUE IS > 15.0 mg/L VANCOMYCIN HIGH INTENSITY THERAPY: CRITICAL VALUE IS > 20.0 mg/L PLEASE CONTACT PHARMACY SERVICES (#[id number]) FOR INTERPRETATIONOF RESULTS. THIS RESULT DOES NOT REPRESENT A PEAK OR TROUGHLEVEL FOR THIS DRUG. Basophil percentageon 2021 Chloride [Moles/Vol] 106 mmol/L 98-107 [facility] Work Phone: Glucose [Mass/Vol] 429 mg/dL 74-106 [facility] Work Phone: Comment on above: Glucose result great er than or equal to 200 mg/dLsuggests DIABETES MELLITUS per A.D.A. criteria. Potassium [Moles/Vol] 4.3 mmol/L 3.5-5.1 [facility] Work Phone: Sodium [Moles/Vol] 137 mmol/L 136-145 [facility] Work Phone: WBC (Bld) [#/Vol] 6.3 10*3/uL 4.4-11.0 [facility] Work Phone: Blood erythrocytes count (nu mber/volume)on 04-09-2022 RBC (Bld) [#/Vol] 4.71 10*6/uL 4.6-6.2 [facility] Work Phone: Blood hemoglobin measurement (mass/volume)on 04-09-2022 Hemoglobin (Bld) [Mass/Vol] 13.6 g/dL 13.0-16.5 [facility] Work Phone: Blood platelet mean volumeon 04-09-2022 Platelet mean volume (Bld) [Entitic vol] 10.6 fL 6.2-12.0 [facility] Work Phone: Determination of erythrocyte mean corpuscular volume (MCV)on 04-09-2022 MCV (RBC) [Entitic vol] 93.2 fL 80-94 [facility] Work Phone: Erythrocyte sedimentation ra bk 04-09-2022 ESR (Bld) [Velocity] 31 mm/h 0-20 [facility]: Hematocrit Auto (Bld) [Volum e fraction]on 04-09-2022 Hematocrit (Bld) [Volume fraction] 43.9 % 40-54 [facility] Work Phone: Laboratory - Chemistry and C hemistry - challengeon 04-09-2022 CO2 [Moles/Vol] 27.0 mmol/L 21.0-32.0 [facility] Work Phone: Urea nitrogen/Creatinine [Mass ratio] 20.3 mg/mg 10-20 [facility] Work Phone: Laboratory - Hematology and Cell countson 04-09-2022 Erythrocyte distribution width (RBC) [Entitic vol] 48.0 fL 35.1-43.9 [facility] Work Phone: Erythrocyte distribution width (RBC) [Ratio] 14.2 % 11.6-14.6 [facility] Work Phone: MCH (RBC) [Entitic mass] 28.9 pg 27.0-32.0 [facility] Work Phone: MCHC Auto (RBC) [Mass/Vol]on 04-09-2022 MCHC (RBC) [Mass/Vol] 31.0 g/dL 32-36 [facility] Work Phone: No Panel Informationon 04-09 Estimated GFR (MDRD) Amer 64 mL/min >60 [facility] Work Phone: Comment on above: GFR Calc Estimated GFR (MDRD) Non-Af Amer 53 mL/min >60 [facility] Work Phone: Comment on above: Non- GFR Calc Platelets bldon 04-09-2022 Platelets (Bld) [#/Vol] 242 10*3/uL 150-450 [facility] Work Phone: Serum or plasma calcium regi urement (mass/volume)on 04-09-2022 Calcium [Mass/Vol] 8.9 mg/dL 8.5-10.1 [facility] Work Phone: Serum or plasma creatinine m easurement (mass/volume)on 04-09-2022 Creatinine [Mass/Vol] 1.48 mg/dL 0.70-1.30 [facility] Work Phone: Comment on above: The validity of the calculated GFR & GFRAA in patients over 70 years has not been determined. Clinical correlation is essential. Serum or plasma urea nitroge n measurement (mass/volume)on 04-09-2022 Urea nitrogen [Mass/Vol] 30 mg/dL 7-18 [facility] Work Phone: Thin prep Papanicolaou smear with manual screeningon 04-09-2022 Thin prep Papanicolaou smear with manual screening 4 5-15 [facility] Work Phone: Vancomycin troughon 04-09-20 Vancomycin trough [Mass/Vol] 15.1 ug/mL 5.0-15.0 [facility] Work Phone: Comment on above: VANCOMYCIN STANDARED DRUG THERAPY TROUGH LEVEL: 5.0 - 15.0 mg/L VANCOMYCIN HIGH INTENSITY THERAPY TROUGH LEVEL: 15.0 - 20.0 mg/L High Intensity therapy recommended for serious lifethreatening infections include:- Aaotzeffnh-Trnybbjlcirx-Msknbrqkv (Ventilator/Healtcare Associated)-Sepsis PLEASE CONTACT PHARMACY SERVICES (#[id number]) FOR INTERPRETATIONOF RESULTS. Basophil percentageon 2021 Chloride [Moles/Vol] 105 mmol/L 98-107 [facility] Work Phone: Glucose [Mass/Vol] 269 mg/dL 74-106 [facility] Work Phone: Comment on above: Glucose result great er than or equal to 200 mg/dLsuggests DIABETES MELLITUS per A.D.A. criteria. Potassium [Moles/Vol] 4.4 mmol/L 3.5-5.1 [facility] Work Phone: Sodium [Moles/Vol] 137 mmol/L 136-145 [facility] Work Phone: Laboratory - Chemistry and C hemistry - challengeon 04-05-2022 CO2 [Moles/Vol] 25.0 mmol/L 21.0-32.0 [facility] Work Phone: Urea nitrogen/Creatinine [Mass ratio] 26.1 mg/mg 10-20 [facility] Work Phone: No Panel Informationon 04-05 Estimated GFR (MDRD) Amer 67 mL/min >60 [facility] Work Phone: Comment on above: GFR Calc Estimated GFR (MDRD) Non-Af Amer 55 mL/min >60 [facility] Work Phone: Comment on above: Non- GFR Calc Serum or plasma calcium regi urement (mass/volume)on 04-05-2022 Calcium [Mass/Vol] 9.1 mg/dL 8.5-10.1 [facility] Work Phone: Serum or plasma creatinine m easurement (mass/volume)on 04-05-2022 Creatinine [Mass/Vol] 1.42 mg/dL 0.70-1.30 [facility] Work Phone: Comment on above: The validity of the calculated GFR & GFRAA in patients over 70 years has not been determined. Clinical correlation is essential. Serum or plasma urea nitroge n measurement (mass/volume)on 04-05-2022 Urea nitrogen [Mass/Vol] 37 mg/dL 7-18 [facility] Work Phone: Thin prep Papanicolaou smear with manual screeningon 04-05-2022 Thin prep Papanicolaou smear with manual screening 7 5-15 [facility] Work Phone: Vancomycin troughon 04-05-20 Vancomycin trough [Mass/Vol] 20.1 ug/mL 5.0-15.0 [facility] Work Phone: Comment on above: VANCOMYCIN STANDARED DRUG THERAPY TROUGH LEVEL: 5.0 - 15.0 mg/L VANCOMYCIN HIGH INTENSITY THERAPY TROUGH LEVEL: 15.0 - 20.0 mg/L High Intensity therapy recommended for serious lifethreatening infections include:- Smjbliwrxv-Rnyjxgslqilm-Oxfjqlnmt (Ventilator/Healtcare Associated)-Sepsis PLEASE CONTACT PHARMACY SERVICES (#[id number]) FOR INTERPRETATIONOF RESULTS. Basophil percentageon 2021 Chloride [Moles/Vol] 110 mmol/L 98-107 [facility] Work Phone: Glucose [Mass/Vol] 115 mg/dL 74-106 [facility] Work Phone: Comment on above: Fasting Glucose resu lt from 100 to 125 mg/dL suggests IMPAIRED HOMEOSTASIS per A.D.A. criteria. Potassium [Moles/Vol] 4.3 mmol/L 3.5-5.1 [facility] Work Phone: Comment on above: Moderate Hemolysis, Result may be falsely increased. Sodium [Moles/Vol] 139 mmol/L 136-145 [facility] Work Phone: WBC (Bld) [#/Vol] 9.0 10*3/uL 4.4-11.0 [facility] Work Phone: Blood erythrocytes count (nu mber/volume)on 04-02-2022 RBC (Bld) [#/Vol] 4.88 10*6/uL 4.6-6.2 [facility] Work Phone: Blood hemoglobin measurement (mass/volume)on 04-02-2022 Hemoglobin (Bld) [Mass/Vol] 14.2 g/dL 13.0-16.5 [facility] Work Phone: Blood platelet mean volumeon 04-02-2022 Platelet mean volume (Bld) [Entitic vol] 10.3 fL 6.2-12.0 [facility] Work Phone: Determination of erythrocyte mean corpuscular volume (MCV)on 04-02-2022 MCV (RBC) [Entitic vol] 94.3 fL 80-94 [facility] Work Phone: Erythrocyte sedimentation ra bk 04-02-2022 ESR (Bld) [Velocity] 48 mm/h 0-20 [facility] Work Phone: Hematocrit Auto (Bld) [Volum e fraction]on 04-02-2022 Hematocrit (Bld) [Volume fraction] 46.0 % 40-54 [facility] Work Phone: Laboratory - Chemistry and C hemistry - challengeon 04-02-2022 CO2 [Moles/Vol] 24.0 mmol/L 21.0-32.0 [facility] Work Phone: Urea nitrogen/Creatinine [Mass ratio] 19.6 mg/mg 10-20 [facility] Work Phone: Laboratory - Hematology and Cell countson 04-02-2022 Erythrocyte distribution width (RBC) [Entitic vol] 45.1 fL 35.1-43.9 [facility] Work Phone: Erythrocyte distribution width (RBC) [Ratio] 13.2 % 11.6-14.6 [facility] Work Phone: MCH (RBC) [Entitic mass] 29.1 pg 27.0-32.0 [facility] Work Phone: MCHC Auto (RBC) [Mass/Vol]on 04-02-2022 MCHC (RBC) [Mass/Vol] 30.9 g/dL 32-36 [facility] Work Phone: No Panel Informationon 04-02 Estimated GFR (MDRD) Amer 62 mL/min >60 [facility] Work Phone: Comment on above: GFR Calc Estimated GFR (MDRD) Non-Af Amer 51 mL/min >60 [facility] Work Phone: Comment on above: Non- GFR Calc Platelets bldon 04-02-2022 Platelets (Bld) [#/Vol] 277 10*3/uL 150-450 [facility] Work Phone: Serum or plasma calcium regi urement (mass/volume)on 04-02-2022 Calcium [Mass/Vol] 9.1 mg/dL 8.5-10.1 [facility] Work Phone: Serum or plasma creatinine m easurement (mass/volume)on 04-02-2022 Creatinine [Mass/Vol] 1.53 mg/dL 0.70-1.30 [facility] Work Phone: Comment on above: The validity of the calculated GFR & GFRAA in patients over 70 years has not been determined. Clinical correlation is essential. Serum or plasma urea nitroge n measurement (mass/volume)on 04-02-2022 Urea nitrogen [Mass/Vol] 30 mg/dL 7-18 [facility] Work Phone: Thin prep Papanicolaou smear with manual screeningon 04-02-2022 Thin prep Papanicolaou smear with manual screening 5 5-15 [facility] Work Phone: Vancomycin troughon 04-02-20 22 Vancomycin trough [Mass/Vol] 24.2 ug/mL 5.0-15.0 [facility] Work Phone: Comment on above: VANCOMYCIN STANDARED DRUG THERAPY TROUGH LEVEL: 5.0 - 15.0 mg/L VANCOMYCIN HIGH INTENSITY THERAPY TROUGH LEVEL: 15.0 - 20.0 mg/L High Intensity therapy recommended for serious lifethreatening infections include:- Zkzcfsnpki-Dexkbmagnfil-Xdjblthea (Ventilator/Healtcare Associated)-Sepsis PLEASE CONTACT PHARMACY SERVICES (#[id number]) FOR INTERPRETATIONOF RESULTS. Absolute lymphocyte counton 03-28-2022 Lymphocytes Auto (Unsp spec) [#/Vol] 0.96 10*3/uL 0.83-4.51 [facility] Work Phone: Basophil percentageon 2021 Basophils/100 WBC (Bld) 0.4 % 0-1 [facility] Work Phone: [phone] Chloride [Moles/Vol] 105 mmol/L 98-107 [facility] Work Phone: Eosinophils/100 WBC (Bld) 1.2 % 0-5 [facility] Work Phone: Glucose [Mass/Vol] 336 mg/dL 74-106 [facility] Work Phone: Comment on above: Glucose result great er than or equal to 200 mg/dLsuggests DIABETES MELLITUS per A.D.A. criteria. Neutrophils (Bld) [#/Vol] 7.3 10*3/uL 2.0-7.7 [facility] Work Phone: Neutrophils/100 WBC (Bld) 78.9 % 47-70 [facility] Work Phone: Potassium [Moles/Vol] 4.3 mmol/L 3.5-5.1 [facility] Work Phone: Sodium [Moles/Vol] 139 mmol/L 136-145 [facility] Work Phone: WBC (Bld) [#/Vol] 9.2 10*3/uL 4.4-11.0 [facility] Work Phone: Blood erythrocytes count (nu mber/volume)on 03-28-2022 RBC (Bld) [#/Vol] 4.84 10*6/uL 4.6-6.2 [facility] Work Phone: Blood hemoglobin measurement (mass/volume)on 03-28-2022 Hemoglobin (Bld) [Mass/Vol] 13.8 g/dL 13.0-16.5 [facility] Work Phone: Blood lymphocytes/100 leukoc yteson 03-28-2022 Lymphocytes/100 WBC (Bld) 10.4 % 19-41 [facility] Work Phone: Blood monocytes/100 leukocyt eson 03-28-2022 Monocytes/100 WBC (Bld) 8.2 % 0-10 [facility] Work Phone: Blood platelet mean volumeon 03-28-2022 Platelet mean volume (Bld) [Entitic vol] 10.5 fL 6.2-12.0 [facility] Work Phone: Determination of erythrocyte mean corpuscular volume (MCV)on 03-28-2022 MCV (RBC) [Entitic vol] 90.7 fL 80-94 [facility] Work Phone: Glucose Glucometer (BldC) [M ass/Vol]on 03-28-2022 Glucose [Mass/Vol] 186 mg/dL 74-106 [facility] Work Phone: Comment on above: MANAGEMENT OF PATIEN T CARE PER NURSING PROTOCOL Hematocrit Auto (Bld) [Volum e fraction]on 03-28-2022 Hematocrit (Bld) [Volume fraction] 43.9 % 40-54 [facility] Work Phone: Laboratory - Chemistry and C hemistry - challengeon 03-28-2022 CO2 [Moles/Vol] 28.0 mmol/L 21.0-32.0 [facility] Work Phone: Urea nitrogen/Creatinine [Mass ratio] 13.9 mg/mg 06-28 [facility] Work Phone: Laboratory - Hematology and Cell countson 03-28-2022 Erythrocyte distribution width (RBC) [Entitic vol] 42.6 fL 35.1-43.9 [facility] Work Phone: Erythrocyte distribution width (RBC) [Ratio] 12.8 % 11.6-14.6 [facility] Work Phone: Immature granulocytes/100 WBC (Bld) 0.900 % 0.0-0.9 [facility] Work Phone: Comment on above: IG% - Immature Granu locytes (promyelocytes, myelocytes and metamyelocytes) > 1% indicates that a LEFT SHIFT is Present. MCH (RBC) [Entitic mass] 28.5 pg 27.0-32.0 [facility] Work Phone: Nucleated RBC/100 WBC (Bld) [Ratio] 0 % 0-5 [facility] Work Phone: MCHC Auto (RBC) [Mass/Vol]on 03-28-2022 MCHC (RBC) [Mass/Vol] 31.4 g/dL 32-36 [facility] Work Phone: No Panel Informationon 03-28 Estimated Creatinine Clearance Calc 67.75 ml/min [facility] Work Phone: Estimated GFR (MDRD) Amer 80 mL/min >60 [facility] Work Phone: Comment on above: GFR Calc Estimated GFR (MDRD) Non-Af Amer 66 mL/min >60 [facility] Work Phone: Comment on above: Non- GFR Calc Platelets bldon 03-28-2022 Platelets (Bld) [#/Vol] 297 10*3/uL 150-450 [facility] Work Phone: Serum or plasma calcium regi urement (mass/volume)on 03-28-2022 Calcium [Mass/Vol] 8.8 mg/dL 8.5-10.1 [facility] Work Phone: Serum or plasma creatinine m easurement (mass/volume)on 03-28-2022 Creatinine [Mass/Vol] 1.22 mg/dL 0.70-1.30 [facility] Work Phone: Comment on above: The validity of the calculated GFR & GFRAA in patients over 70 years has not been determined. Clinical correlation is essential. Serum or plasma urea nitroge n measurement (mass/volume)on 03-28-2022 Urea nitrogen [Mass/Vol] 17 mg/dL - [facility] Work Phone: Thin prep Papanicolaou smear with manual screeningon 03-28-2022 Thin prep Papanicolaou smear with manual screening 6 5-15 [facility] Work Phone: Vancomycin troughon 03-27-20 Vancomycin trough [Mass/Vol] 15.1 ug/mL 5.0-15.0 [facility] Work Phone: Comment on above: VANCOMYCIN STANDARED DRUG THERAPY TROUGH LEVEL: 5.0 - 15.0 mg/L VANCOMYCIN HIGH INTENSITY THERAPY TROUGH LEVEL: 15.0 - 20.0 mg/L High Intensity therapy recommended for serious lifethreatening infections include:- Iavodgjsii-Zucolrkzkfrq-Xkgqfgxku (Ventilator/Healtcare Associated)-Sepsis PLEASE CONTACT PHARMACY SERVICES (#[id number]) FOR INTERPRETATIONOF RESULTS. Basophil percentageon 2021 Bilirubin [Mass/Vol] 0.60 mg/dL 0.20-1.00 [facility] Work Phone: Comment on above: For patients on eltr ombopag therapy, use of Dimension [place] TBIL is not recommended. Protein [Mass/Vol] 5.8 g/dL 6.4-8.2 [facility] Work Phone: Laboratory - Chemistry and C hemistry - challengeon 03-26-2022 ALP [Catalytic activity/Vol] 175 U/L 45-117 [facility] Work Phone: ALT [Catalytic activity/Vol] 57 U/L 16-61 [facility] Work Phone: Globulin (S) [Mass/Vol] 3.8 g/dL 2.2-4.2 [facility] Work Phone: Serum or plasma albumin regi urement (mass/volume)on 03-26-2022 Albumin [Mass/Vol] 2.0 g/dL 3.2-5.0 [facility] Work Phone: Serum or plasma albumin/glob ulin mass ratioon 03-26-2022 Albumin/Globulin [Mass ratio] 0.5 {ratio} 0.9-2.4 [facility] Work Phone: Thin prep Papanicolaou smear with manual screeningon 03-26-2022 Thin prep Papanicolaou smear with manual screening 35 U/L 15-37 [facility] Work Phone: Absolute lymphocyte counton 03-24-2022 Lymphocytes Auto (Unsp spec) [#/Vol] 1.16 10*3/uL 0.83-4.51 [facility] Work Phone: Basophil percentageon 2021 Basophils/100 WBC (Bld) 0.2 % 0-1 [facility] Work Phone: Chloride [Moles/Vol] 100 mmol/L 98-107 [facility] Work Phone: Eosinophils/100 WBC (Bld) 0.1 % 0-5 [facility] Work Phone: Glucose [Mass/Vol] 397 mg/dL 74-106 [facility] Work Phone: Comment on above: Glucose result great er than or equal to 200 mg/dLsuggests DIABETES MELLITUS per A.D.A. criteria. Lactate [Moles/Vol] 1.9 mmol/L 0.4-2.0 [facility] Work Phone: Neutrophils (Bld) [#/Vol] 13.0 10*3/uL 2.0-7.7 [facility] Work Phone: Neutrophils/100 WBC (Bld) 80.9 % 47-70 [facility] Work Phone: Potassium [Moles/Vol] 4.7 mmol/L 3.5-5.1 [facility] Work Phone: Comment on above: Slight Hemolysis, Re sult may be falsely increased. Sodium [Moles/Vol] 132 mmol/L 136-145 [facility] Work Phone: WBC (Bld) [#/Vol] 16.1 10*3/uL 4.4-11.0 [facility] Work Phone: Blood erythrocytes count (nu mber/volume)on 03-24-2022 RBC (Bld) [#/Vol] 5.35 10*6/uL 4.6-6.2 [facility] Work Phone: Blood hemoglobin measurement (mass/volume)on 03-24-2022 Hemoglobin (Bld) [Mass/Vol] 15.4 g/dL 13.0-16.5 [facility] Work Phone: Blood lymphocytes/100 leukoc yteson 03-24-2022 Lymphocytes/100 WBC (Bld) 7.2 % 19-41 [facility] Work Phone: Blood manual differential co mment interpretation (narrative result)on 03-24-2022 Manual differential comment Vernon (Bld) [Interp] SCANNED [facility] Work Phone: Manual differential comment Vernon (Bld) [Interp] SCANNED [facility] Work Phone: Blood monocytes/100 leukocyt eson 03-24-2022 Monocytes/100 WBC (Bld) 10.9 % 0-10 [facility] Work Phone: Blood platelet mean volumeon 03-24-2022 Platelet mean volume (Bld) [Entitic vol] 10.1 fL 6.2-12.0 [facility] Work Phone: Determination of erythrocyte mean corpuscular volume (MCV)on 03-24-2022 MCV (RBC) [Entitic vol] 90.3 fL 80-94 [facility] Work Phone: Erythrocyte sedimentation ra bk 03-24-2022 ESR (Bld) [Velocity] 92 mm/h 0-20 [facility] Work Phone: Hematocrit Auto (Bld) [Volum e fraction]on 03-24-2022 Hematocrit (Bld) [Volume fraction] 48.3 % 40-54 [facility] Work Phone: Laboratory - Chemistry and C hemistry - challengeon 03-24-2022 CO2 [Moles/Vol] 24.0 mmol/L 21.0-32.0 [facility] Work Phone: Magnesium [Mass/Vol] 2.2 mg/dL 1.6-2.6 [facility] Work Phone: Comment on above: Slight Hemolysis, Re sult may be falsely increased. Urea nitrogen/Creatinine [Mass ratio] 14.6 mg/mg 10-20 [facility] Work Phone: Laboratory - Hematology and Cell countson 03-24-2022 Erythrocyte distribution width (RBC) [Entitic vol] 42.1 fL 35.1-43.9 [facility] Work Phone: Erythrocyte distribution width (RBC) [Ratio] 12.8 % 11.6-14.6 [facility] Work Phone: Immature granulocytes/100 WBC (Bld) 0.700 % 0.0-0.9 [facility] Work Phone: Comment on above: IG% - Immature Granu locytes (promyelocytes, myelocytes and metamyelocytes) > 1% indicates that a LEFT SHIFT is Present. MCH (RBC) [Entitic mass] 28.8 pg 27.0-32.0 [facility] Work Phone: Nucleated RBC/100 WBC (Bld) [Ratio] 0 % 0-5 [facility] Work Phone: MCHC Auto (RBC) [Mass/Vol]on 03-24-2022 MCHC (RBC) [Mass/Vol] 31.9 g/dL 32-36 [facility] Work Phone: No Panel Informationon 03-24 Methicillin-Resist S.aureus DNA PCR Negative Negative [facility] Work Phone: Estimated Creatinine Clearance Calc 36.57 ml/min [facility] Work Phone: Estimated GFR (MDRD) Amer 39 mL/min >60 [facility] Work Phone: Comment on above: GFR Calc Estimated GFR (MDRD) Non-Af Amer 32 mL/min >60 [facility] Work Phone: Comment on above: Non- GFR Calc Tacrolimus (Prograf) Level 14.1 ng/mL 2.0-20.0 [facility] Work Phone: Comment on above: Trough (immediately following transplant) 15.0 Trough (steady state, 2 weeks or more after transplant): 3.0 - 8.0 Performed by LC-MS/MS technology.Performed at: [employer] [id number] Director: Zechariah Cotton MD, Phone: [phone] Platelets bldon 03-24-2022 Platelets (Bld) [#/Vol] 249 10*3/uL 150-450 [facility] Work Phone: Review by pathologiston 03-09 Pathologist review Vernon (Unsp spec) [Interp] Reviewed [facility] Work Phone: Comment on above: Previous reported re sult: Eri souza Edited by: RGOOD on 03/26/22:1201Neutrophilic leukocytosis.Clinical correlation suggested.Robbie Castro D.O. 03/26/22 AMENDED REPORT 03/26/22 1201 PATH REV previously reported as: Eri souza Pathologist review Vernon (Unsp spec) [Interp] Eri souza [facility] Work Phone: Serum or plasma C reactive p rotein measurement (mass/volume)on 03-24-2022 CRP [Mass/Vol] 187.00 mg/L 0.0-3.0 [facility] Work Phone: Comment on above: C-Reactive Protein ( CRP) provides useful information for thediagnosis, therapy and monitoring of inflammatory processesand associated diseases. For the evaluation of Relative Riskfor Cardiovascular Disease, a High Sensitivity CRP (HSCRP)should be ordered. Serum or plasma calcium regi urement (mass/volume)on 03-24-2022 Calcium [Mass/Vol] 9.6 mg/dL 8.5-10.1 [facility] Work Phone: Serum or plasma creatinine m easurement (mass/volume)on 03-24-2022 Creatinine [Mass/Vol] 2.26 mg/dL 0.70-1.30 [facility] Work Phone: Comment on above: The validity of the calculated GFR & GFRAA in patients over 70 years has not been determined. Clinical correlation is essential. Serum or plasma urea nitroge n measurement (mass/volume)on 03-24-2022 Urea nitrogen [Mass/Vol] 33 mg/dL 7-18 [facility] Work Phone: Staphylococcus aureus DNA de tection by probe and target amplification methodon 03-24-2022 S. aureus DNA CARMEN+probe Ql (Unsp spec) Positive Negative [facility] Work Phone: Thin prep Papanicolaou smear with manual screeningon 03-24-2022 Thin prep Papanicolaou smear with manual screening 8 5-15 [facility] Work Phone: Whole blood hemoglobin A1c/t otal hemoglobin ratio (mass fraction)on 03-24-2022 HbA1c (Bld) [Mass fraction] 10.5 % 3.8-5.6 [facility] Work Phone: Comment on above: Normal < 5.7 % Predi abetic 5.7 - 6.4 % Diabetic >or= 6.5 % Please note range changes. URINALYSIS, DIPSTICK ONLYon 03-08-2022 Bilirubin Ql (U) Negative Negative [facility] Clarity (Unsp spec) Clear Clear [facility] Color (U) Light Yellow Yellow [facility] Glucose Test strip (U) [Mass/Vol] 4+ Abnormal Negative [facility] Hemoglobin Ql (U) 1+ Abnormal Negative [facility] Ketones Ql (U) Negative Negative [facility] Leukocyte esterase Test strip Ql (U) Negative Negative [facility] Nitrite Ql (U) Negative Negative [facility] pH (U) 5.5 [pH] 5.0 - 8.0 [facility] Protein (U) [Mass/Vol] Negative Negative [facility] Specific gravity (U) [Rel density] 1.015 1.005 - 1.030 [facility] Urobilinogen Ql (U) Negative Negative [facility] URINALYSIS, DIPSTICK ONLYon 12-08-2021 Bilirubin Ql (U) Negative Negative [facility] Clarity (Unsp spec) Clear Clear [facility] Color (U) Light Yellow Yellow [facility] Glucose Test strip (U) [Mass/Vol] 4+ Abnormal Negative [facility] Hemoglobin Ql (U) 2+ Abnormal Negative [facility] Ketones Ql (U) Negative Negative [facility] Leukocyte esterase Test strip Ql (U) Negative Negative [facility] Nitrite Ql (U) Negative Negative [facility] pH (U) 6.0 [pH] 5.0 - 8.0 [facility] Protein (U) [Mass/Vol] Negative Negative [facility] Specific gravity (U) [Rel density] 1.013 1.005 - 1.030 [facility] Urobilinogen Ql (U) 1+ Abnormal Negative [facility] Absolute lymphocyte counton 12-04-2021 Lymphocytes Auto (Unsp spec) [#/Vol] 1.18 10*3/uL 0.83-4.51 [facility] Work Phone: Bacteria identified Anaer cx Nom (Unsp spec)on 12-04-2021 Anaerobic Culture Prevotella bivia [facility] Work Phone: Anaerobic Culture Anaerobic cocci [facility] Work Phone: Bacteria identified Cx Nom ( Wound)on 12-04-2021 Wound Culture Enterococcus faecalis [facility] Work Phone: Wound Culture Staphylococcus homin is hominis [facility] Work Phone: Wound Culture Corynebacterium amycolatum [facility] Work Phone: Wound Culture Streptococcus mitis/ oralis [facility] Work Phone: Wound Culture Actinomyces odontolyticus [facility] Work Phone: Basophil percentageon 2021 Basophils/100 WBC (Bld) 0.1 % 0-1 [facility] Work Phone: Bilirubin [Mass/Vol] 0.30 mg/dL 0.20-1.00 [facility] Work Phone: Comment on above: For patients on eltr ombopag therapy, use of Dimension [place] TBIL is not recommended. Chloride [Moles/Vol] 110 mmol/L 98-107 [facility] Work Phone: Eosinophils/100 WBC (Bld) 0.4 % 0-5 [facility] Work Phone: [phone] Glucose [Mass/Vol] 211 mg/dL 74-106 [facility] Work Phone: Comment on above: Glucose result great er than or equal to 200 mg/dLsuggests DIABETES MELLITUS per A.D.A. criteria. Neutrophils (Bld) [#/Vol] 6.1 10*3/uL 2.0-7.7 [facility] Work Phone: Neutrophils/100 WBC (Bld) 75.1 % 47-70 [facility] Work Phone: [phone] Potassium [Moles/Vol] 4.6 mmol/L 3.5-5.1 [facility] Work Phone: Protein [Mass/Vol] 7.0 g/dL 6.4-8.2 [facility] Work Phone: Sodium [Moles/Vol] 139 mmol/L 136-145 [facility] Work Phone: [phone] WBC (Bld) [#/Vol] 8.1 10*3/uL 4.4-11.0 [facility] Work Phone: Blood erythrocytes count (nu mber/volume)on 12-04-2021 RBC (Bld) [#/Vol] 5.23 10*6/uL 4.6-6.2 [facility] Work Phone: [phone] Blood hemoglobin measurement (mass/volume)on 12-04-2021 Hemoglobin (Bld) [Mass/Vol] 15.9 g/dL 13.0-16.5 [facility] Work Phone: Blood lymphocytes/100 leukoc yteson 12-04-2021 Lymphocytes/100 WBC (Bld) 14.5 % 19-41 [facility] Work Phone: Blood monocytes/100 leukocyt eson 12-04-2021 Monocytes/100 WBC (Bld) 9.7 % 0-10 [facility] Work Phone: Blood platelet mean volumeon 12-04-2021 Platelet mean volume (Bld) [Entitic vol] 10.0 fL 6.2-12.0 [facility] Work Phone: Determination of erythrocyte mean corpuscular volume (MCV)on 12-04-2021 MCV (RBC) [Entitic vol] 93.1 fL 80-94 [facility] Work Phone: Erythrocyte sedimentation ra bk 12-04-2021 ESR (Bld) [Velocity] 38 mm/h 0-20 [facility] Work Phone: Gram stain for investigation of transfusion reactionon 12-04-2021 Microscopic observation Gram stain Nom (Unsp spec) [facility] Work Phone: Hematocrit Auto (Bld) [Volum e fraction]on 12-04-2021 Hematocrit (Bld) [Volume fraction] 48.7 % 40-54 [facility] Work Phone: Laboratory - Chemistry and C hemistry - challengeon 12-04-2021 ALP [Catalytic activity/Vol] 161 U/L 45-117 [facility] Work Phone: ALT [Catalytic activity/Vol] 49 U/L 16-61 [facility] Work Phone: CO2 [Moles/Vol] 23.0 mmol/L 21.0-32.0 [facility] Work Phone: Globulin (S) [Mass/Vol] 3.6 g/dL 2.2-4.2 [facility] Work Phone: Urea nitrogen/Creatinine [Mass ratio] 29.3 mg/mg 10-20 [facility] Work Phone: Laboratory - Hematology and Cell countson 12-04-2021 Erythrocyte distribution width (RBC) [Entitic vol] 45.3 fL 35.1-43.9 [facility] Work Phone: Erythrocyte distribution width (RBC) [Ratio] 13.2 % 11.6-14.6 [facility] Work Phone: Immature granulocytes/100 WBC (Bld) 0.200 % 0.0-0.9 [facility] Work Phone: Comment on above: IG% - Immature Granu locytes (promyelocytes, myelocytes and metamyelocytes) > 1% indicates that a LEFT SHIFT is Present. MCH (RBC) [Entitic mass] 30.4 pg 27.0-32.0 [facility] Work Phone: Nucleated RBC/100 WBC (Bld) [Ratio] 0 % 0-5 [facility] Work Phone: MCHC Auto (RBC) [Mass/Vol]on 12-04-2021 MCHC (RBC) [Mass/Vol] 32.6 g/dL 32-36 [facility] Work Phone: No Panel Informationon 12-04 Estimated GFR (MDRD) Amer 72 mL/min >60 [facility] Work Phone: Comment on above: GFR Calc Estimated GFR (MDRD) Non-Af Amer 60 mL/min >60 [facility] Work Phone: Comment on above: Non- GFR Calc Methicillin-Resist S.aureus DNA PCR Negative Negative [facility] Work Phone: Platelets bldon 12-04-2021 Platelets (Bld) [#/Vol] 226 10*3/uL 150-450 [facility] Work Phone: Serum or plasma C reactive p rotein measurement (mass/volume)on 12-04-2021 CRP [Mass/Vol] 12.60 mg/L 0.0-3.0 [facility] Work Phone: Comment on above: C-Reactive Protein ( CRP) provides useful information for thediagnosis, therapy and monitoring of inflammatory processesand associated diseases. For the evaluation of Relative Riskfor Cardiovascular Disease, a High Sensitivity CRP (HSCRP)should be ordered. Serum or plasma albumin regi urement (mass/volume)on 12-04-2021 Albumin [Mass/Vol] 3.4 g/dL 3.2-5.0 [facility] Work Phone: Serum or plasma albumin/glob ulin mass ratioon 12-04-2021 Albumin/Globulin [Mass ratio] 0.9 {ratio} 0.9-2.4 [facility] Work Phone: Serum or plasma calcium regi urement (mass/volume)on 12-04-2021 Calcium [Mass/Vol] 9.2 mg/dL 8.5-10.1 [facility] [facility] Work Phone: Serum or plasma creatinine m easurement (mass/volume)on 12-04-2021 Creatinine [Mass/Vol] 1.33 mg/dL 0.70-1.30 [facility] Work Phone: Comment on above: The validity of the calculated GFR & GFRAA in patients over 70 years has not been determined. Clinical correlation is essential. Serum or plasma urea nitroge n measurement (mass/volume)on 12-04-2021 Urea nitrogen [Mass/Vol] 39 mg/dL 7-18 [facility] Work Phone: Staphylococcus aureus DNA de tection by probe and target amplification methodon 12-04-2021 S. aureus DNA CARMEN+probe Ql (Unsp spec) Positive Negative [facility] Work Phone: Thin prep Papanicolaou smear with manual screeningon 12-04-2021 Thin prep Papanicolaou smear with manual screening 31 U/L 15-37 [facility] Work Phone: Thin prep Papanicolaou smear with manual screening 6 5-15 [facility] Work Phone: Whole blood hemoglobin A1c/t otal hemoglobin ratio (mass fraction)on 12-04-2021 HbA1c (Bld) [Mass fraction] 8.1 % 3.8-5.6 [facility] Work Phone: Comment on above: Normal < 5.7 % Predi abetic 5.7 - 6.4 % Diabetic >or= 6.5 % Please note range changes. Absolute lymphocyte counton 09-20-2021 Lymphocytes Auto (Unsp spec) [#/Vol] 0.44 10*3/uL 0.83-4.51 [facility] Work Phone: Basophil percentageon 2021 Basophils/100 WBC (Bld) 0.2 % 0-1 [facility] Work Phone: Chloride [Moles/Vol] 113 mmol/L 98-107 [facility] Work Phone: Eosinophils/100 WBC (Bld) 0.0 % 0-5 [facility] Work Phone: Glucose [Mass/Vol] 241 mg/dL 74-106 [facility] Work Phone: Comment on above: Glucose result great er than or equal to 200 mg/dLsuggests DIABETES MELLITUS per A.D.A. criteria.Please note revised GLUCOSE reference range effective 2017. Neutrophils (Bld) [#/Vol] 10.5 10*3/uL 2.0-7.7 [facility] Work Phone: Neutrophils/100 WBC (Bld) 90.2 % 47-70 [facility] Work Phone: Potassium [Moles/Vol] 4.9 mmol/L 3.5-5.1 [facility] Work Phone: [phone] Sodium [Moles/Vol] 136 mmol/L 136-145 [facility] Work Phone: WBC (Bld) [#/Vol] 11.6 10*3/uL 4.4-11.0 [facility] Work Phone: Blood erythrocytes count (nu mber/volume)on 09-20-2021 RBC (Bld) [#/Vol] 5.74 10*6/uL 4.6-6.2 [facility] Work Phone: Blood hemoglobin measurement (mass/volume)on 09-20-2021 Hemoglobin (Bld) [Mass/Vol] 16.9 g/dL 13.0-16.5 [facility] Work Phone: Blood lymphocytes/100 leukoc yteson 09-20-2021 Lymphocytes/100 WBC (Bld) 3.8 % 19-41 [facility] Work Phone: Blood monocytes/100 leukocyt eson 09-20-2021 Monocytes/100 WBC (Bld) 5.4 % 0-10 [facility] Work Phone: Blood platelet mean volumeon 09-20-2021 Platelet mean volume (Bld) [Entitic vol] 11.8 fL 6.2-12.0 [facility] Work Phone: Determination of erythrocyte mean corpuscular volume (MCV)on 09-20-2021 MCV (RBC) [Entitic vol] 92.3 fL 80-94 [facility] Work Phone: Glucose Glucometer (BldC) [M ass/Vol]on 09-20-2021 Glucose [Mass/Vol] 294 mg/dL 70-110 [facility] Work Phone: Comment on above: MANAGEMENT OF PATIEN T CARE PER NURSING PROTOCOL Hematocrit Auto (Bld) [Volum e fraction]on 09-20-2021 Hematocrit (Bld) [Volume fraction] 53.0 % 40-54 [facility] Work Phone: Laboratory - Chemistry and C hemistry - challengeon 09-20-2021 CO2 [Moles/Vol] 16.0 mmol/L 21.0-32.0 [facility] Work Phone: Urea nitrogen/Creatinine [Mass ratio] 34.2 mg/mg 10-20 [facility] Work Phone: Laboratory - Hematology and Cell countson 09-20-2021 Erythrocyte distribution width (RBC) [Entitic vol] 39.8 fL 35.1-43.9 [facility] Work Phone: Erythrocyte distribution width (RBC) [Ratio] 11.7 % 11.6-14.6 [facility] Work Phone: Immature granulocytes/100 WBC (Bld) 0.400 % 0.0-0.9 [facility] Work Phone: Comment on above: IG% - Immature Granu locytes (promyelocytes, myelocytes and metamyelocytes) > 1% indicates that a LEFT SHIFT is Present. MCH (RBC) [Entitic mass] 29.4 pg 27.0-32.0 [facility] Work Phone: Nucleated RBC/100 WBC (Bld) [Ratio] 0 % 0-5 [facility] Work Phone: MCHC Auto (RBC) [Mass/Vol]on 09-20-2021 MCHC (RBC) [Mass/Vol] 31.9 g/dL 32-36 [facility] Work Phone: No Panel Informationon 09-20 Estimated Creatinine Clearance Calc 51.93 ml/min [facility] Work Phone: Estimated GFR (MDRD) Amer 58 mL/min >60 [facility] Work Phone: Comment on above: GFR Calc Estimated GFR (MDRD) Non-Af Amer 48 mL/min >60 [facility] Work Phone: Comment on above: Non- GFR Calc Platelets bldon 09-20-2021 Platelets (Bld) [#/Vol] 154 10*3/uL 150-450 [facility] Work Phone: Serum or plasma calcium regi urement (mass/volume)on 09-20-2021 Calcium [Mass/Vol] 7.7 mg/dL 8.5-10.1 [facility] Work Phone: Serum or plasma creatinine m easurement (mass/volume)on 09-20-2021 Creatinine [Mass/Vol] 1.61 mg/dL 0.70-1.30 [facility] Work Phone: Comment on above: The validity of the calculated GFR & GFRAA in patients over 70 years has not been determined. Clinical correlation is essential. Serum or plasma urea nitroge n measurement (mass/volume)on 09-20-2021 Urea nitrogen [Mass/Vol] 55 mg/dL 7-18 [facility] Work Phone: Thin prep Papanicolaou smear with manual screeningon 09-20-2021 Thin prep Papanicolaou smear with manual screening 7 5-15 [facility] Work Phone: Blood kt cells detection b y light microscopyon 09-19-2021 Kt cells LM Ql (Bld) 1+ [facility] Work Phone: Basophil percentageon 2021 Bilirubin [Mass/Vol] 0.50 mg/dL 0.20-1.00 [facility] Work Phone: Comment on above: For patients on eltr ombopag therapy, use of Dimension [place] TBIL is not recommended. Lactate [Moles/Vol] 1.2 mmol/L 0.4-2.0 [facility] Work Phone: Protein [Mass/Vol] 5.8 g/dL 6.4-8.2 [facility] Work Phone: Laboratory - Chemistry and C hemistry - challengeon 09-18-2021 ALP [Catalytic activity/Vol] 138 U/L 45-117 [facility] Work Phone: ALT [Catalytic activity/Vol] 76 U/L 16-61 [facility] Work Phone: Globulin (S) [Mass/Vol] 3.1 g/dL 2.2-4.2 [facility] Work Phone: Serum or plasma albumin regi urement (mass/volume)on 09-18-2021 Albumin [Mass/Vol] 2.7 g/dL 3.2-5.0 [facility] Work Phone: Serum or plasma albumin/glob ulin mass ratioon 09-18-2021 Albumin/Globulin [Mass ratio] 0.9 {ratio} 0.9-2.4 [facility] Work Phone: Thin prep Papanicolaou smear with manual screeningon 09-18-2021 Thin prep Papanicolaou smear with manual screening 54 U/L 15-37 [facility] Work Phone: Blood manual differential co mment interpretation (narrative result)on 09-17-2021 Manual differential comment Vernon (Bld) [Interp] SCANNED [facility] Work Phone: Blood platelet adequacy dete ction by light microscopyon 09-17-2021 Platelets LM Ql (Bld) SLT DEC ADEQ [facility] Work Phone: Direct bilirubinon 2 Bilirubin.direct [Mass/Vol] 0.25 mg/dL 0.00-0.30 [facility] Work Phone: Laboratory - Microbiology an d Antimicrobial susceptibilityon 09-17-2021 Bacteria identified Cx Nom (Bld) No growth in 5 days. [facility] Work Phone: No Panel Informationon 09-17 D-Dimer Quantitative (PE/DVT) 1.02 FEU/ug/m 0.27-0.49 [facility] Work Phone: Comment on above: D-Dimer ELEVATED (>0 .49): Additional studies and clinicalassessments are indicated to conclude diagnosis of:Deep Vein Thrombosis (DVT) or Pulmonary Embolism (PE)CRITICAL VALUE VERIFIED. CALLED TO POPEYE PEREZ RN09/17/21 2144 Sarah Cuellar.RESULTS READ BACK BY SAME. Troponin I High Sensitivity 21 pg/mL 3.0-78.0 [facility] Work Phone: Comment on above: Please Note: New Isha t Units and Gender Specific Reference Ranges. For more information see Policy Stat Procedure [place] High Sensitivity Troponin (TNIH) and attachments. RBC morphologyon 09-17-2021 RBC morphology finding Nom (Bld) NORM C+C NORMAL NORM C&C [facility] Work Phone: Absolute lymphocyte counton 09-14-2021 Lymphocytes Auto (Unsp spec) [#/Vol] 0.54 10*3/uL 0.83-4.51 [facility] Work Phone: Basophil percentageon 2021 Basophil percentage 0 SEEN /hpf [facility] Work Phone: Basophils/100 WBC (Bld) 0.2 % 0-1 [facility] Work Phone: Chloride [Moles/Vol] 107 mmol/L 98-107 [facility] Work Phone: Eosinophils/100 WBC (Bld) 0.2 % 0-5 [facility] Work Phone: Glucose [Mass/Vol] 98 mg/dL 74-106 [facility] Work Phone: Comment on above: Please note revised GLUCOSE reference range effective 2017. Lactate [Moles/Vol] 1.1 mmol/L 0.4-2.0 [facility]: Neutrophils (Bld) [#/Vol] 4.4 10*3/uL 2.0-7.7 [facility] Work Phone: Neutrophils/100 WBC (Bld) 79.3 % 47-70 [facility] Work Phone: Potassium [Moles/Vol] 4.3 mmol/L 3.5-5.1 [facility] Work Phone: Sodium [Moles/Vol] 139 mmol/L 136-145 [facility] Work Phone: WBC (Bld) [#/Vol] 5.5 10*3/uL 4.4-11.0 [facility] Work Phone: Bilirubin Test strip Ql (U)o n 09-14-2021 Bilirubin Ql (U) Negative Negative [facility] Work Phone: Blood erythrocytes count (nu mber/volume)on 09-14-2021 RBC (Bld) [#/Vol] 5.61 10*6/uL 4.6-6.2 [facility] Work Phone: Blood hemoglobin measurement (mass/volume)on 09-14-2021 Hemoglobin (Bld) [Mass/Vol] 17.2 g/dL 13.0-16.5 [facility] Work Phone: Blood lymphocytes/100 leukoc yteson 09-14-2021 Lymphocytes/100 WBC (Bld) 9.9 % 19-41 [facility] Work Phone: Blood manual differential co mment interpretation (narrative result)on 09-14-2021 Manual differential comment Vernon (Bld) [Interp] SCANNED [facility] Work Phone: Blood monocytes/100 leukocyt eson 09-14-2021 Monocytes/100 WBC (Bld) 9.9 % 0-10 [facility] Work Phone: Blood platelet mean volumeon 09-14-2021 Platelet mean volume (Bld) [Entitic vol] 11.3 fL 6.2-12.0 [facility] Work Phone: Determination of erythrocyte mean corpuscular volume (MCV)on 09-14-2021 MCV (RBC) [Entitic vol] 94.1 fL 80-94 [facility] Work Phone: Hematocrit Auto (Bld) [Volum e fraction]on 09-14-2021 Hematocrit (Bld) [Volume fraction] 52.8 % 40-54 [facility] Work Phone: Ketones Test strip Ql (U)on 09-14-2021 Ketones Ql (U) Negative Negative [facility] Work Phone: Laboratory - Chemistry and C hemistry - challengeon 09-14-2021 CO2 [Moles/Vol] 24.0 mmol/L 21.0-32.0 [facility] Work Phone: Urea nitrogen/Creatinine [Mass ratio] 11.9 mg/mg 10-20 [facility] Work Phone: Laboratory - Hematology and Cell countson 09-14-2021 Erythrocyte distribution width (RBC) [Entitic vol] 40.8 fL 35.1-43.9 [facility] Work Phone: Erythrocyte distribution width (RBC) [Ratio] 11.8 % 11.6-14.6 [facility] Work Phone: Immature granulocytes/100 WBC (Bld) 0.500 % 0.0-0.9 [facility] Work Phone: Comment on above: IG% - Immature Granu locytes (promyelocytes, myelocytes and metamyelocytes) > 1% indicates that a LEFT SHIFT is Present. MCH (RBC) [Entitic mass] 30.7 pg 27.0-32.0 [facility] Work Phone: Nucleated RBC/100 WBC (Bld) [Ratio] 0 % 0-5 [facility] Work Phone: Laboratory - Microbiology an d Antimicrobial susceptibilityon 09-14-2021 Bacteria identified Cx Nom (Bld) No growth in 5 days. [facility] Work Phone: MCHC Auto (RBC) [Mass/Vol]on 09-14-2021 MCHC (RBC) [Mass/Vol] 32.6 g/dL 32-36 [facility] Work Phone: Mucus LM Ql (Urine sed)on Mucus Ql (Urine sed) 0 SEEN /hpf [facility] Work Phone: Nitrite Test strip Ql (U)on 09-14-2021 Nitrite Ql (U) Negative Negative [facility] Work Phone: No Panel Informationon 09-14 D-Dimer Quantitative (PE/DVT) 0.70 FEU/ug/m 0.27-0.49 [facility] Work Phone: Comment on above: CRITICAL VALUE VERIF IED. CALLED TO BHAVESH MOON09/14/21 0935 Ferdinand Mike.RESULTS READ BACK BY SAME . D-Dimer ELEVATED (>0.49): Additional studies and clinicalassessments are indicated to conclude diagnosis of:Deep Vein Thrombosis (DVT) or Pulmonary Embolism (PE) Estimated Creatinine Clearance Calc 47.50 ml/min [facility] Work Phone: Estimated GFR (MDRD) Amer 52 mL/min >60 [facility] Work Phone: Comment on above: GFR Calc Estimated GFR (MDRD) Non-Af Amer 43 mL/min >60 [facility] Work Phone: Comment on above: Non- GFR Calc Troponin I High Sensitivity 24 pg/mL 3.0-78.0 [facility] Work Phone: Comment on above: Please Note: New Isha t Units and Gender Specific Reference Ranges. For more information see Policy Stat Procedure [place] High Sensitivity Troponin (TNIH) and attachments. SARS-CoV-2 Antigen (Rapid) SARS-CoV-2 (COVID 19) [facility] Work Phone: Platelets bldon 09-14-2021 Platelets (Bld) [#/Vol] 144 10*3/uL 150-450 [facility] Work Phone: Protein Test strip Ql (U)on 09-14-2021 Protein Ql (U) 15 mg/dl Negative [facility] Work Phone: Serum or plasma calcium regi urement (mass/volume)on 09-14-2021 Calcium [Mass/Vol] 9.1 mg/dL 8.5-10.1 [facility] Work Phone: Serum or plasma creatinine m easurement (mass/volume)on 09-14-2021 Creatinine [Mass/Vol] 1.76 mg/dL 0.70-1.30 [facility] Work Phone: Comment on above: The validity of the calculated GFR & GFRAA in patients over 70 years has not been determined. Clinical correlation is essential. Serum or plasma urea nitroge n measurement (mass/volume)on 09-14-2021 Urea nitrogen [Mass/Vol] 21 mg/dL 7-18 [facility] Work Phone: Squamous epithelial cells de tection in urine sediment by light microscopyon 09-14-2021 Epithelial cells.squamous LM Ql (Urine sed) 0 SEEN /hpf [facility] Work Phone: Thin prep Papanicolaou smear with manual screeningon 09-14-2021 Thin prep Papanicolaou smear with manual screening 8 5-15 [facility] Work Phone: Urine blood detectionon RBC Ql (U) 250 /ul Negative [facility] Work Phone: RBC Ql (U) 5-10 SEEN /hpf [facility] Work Phone: Urine clarityon 09-14-2021 Clarity (U) Clear Clear [facility] Work Phone: Urine color determinationon 09-14-2021 Color (U) Yellow Yellow [facility] Work Phone: Urine glucose detectionon Glucose Ql (U) Normal mg/dl Normal [facility] Work Phone: Urine leukocyte esterase det ection by dipstickon 09-14-2021 Leukocyte esterase Test strip Ql (U) Negative Negative [facility] Work Phone: Urine pHon 09-14-2021 pH (U) 5.0 [pH] [facility] Work Phone: Urine sediment bacteria coun t by microscopy (number/high power field)on 09-14-2021 Bacteria LM.HPF (Urine sed) [#/Area] 0 /[HPF] None Seen [facility] Work Phone: Urine specific gravity measu rementon 09-14-2021 Specific gravity (U) [Rel density] 1.015 [facility] Work Phone: Urobilinogen Auto test strip Ql (U)on 09-14-2021 Urobilinogen Ql (U) Normal mg/dl Normal [facility] Work Phone: Bacteria identified Anaer cx Nom (Unsp spec) Anaerobic Culture Prevotella bivia [facility] Work Phone: Anaerobic Culture Anaerobic cocci [facility] Work Phone: Anaerobic Culture Negative [facility] Work Phone: Bacteria identified Cx Nom ( Wound) Wound Culture Enterococcus faecalis [facility] Work Phone: Wound Culture Staphylococcus homin is hominis [facility] Work Phone: Wound Culture Corynebacterium amycolatum [facility] Work Phone: Wound Culture Streptococcus mitis/ oralis [facility] Work Phone: Wound Culture Actinomyces odontolyticus [facility] Work Phone: Wound Culture Staphylococcus aureus [facility] Work Phone: Wound Culture Escherichia coli [facility] Work Phone: Wound Culture Actinomyces species [facility] Work Phone: Wound Culture Strep anginosus [facility] Work Phone: Wound Culture Staphylococcus epidermidis [facility] Work Phone: Wound Culture Enterococcus casseliflavus (D) [facility] Work Phone: Wound Culture Turicella otitidis [facility] Work Phone: Gram stain for investigation of transfusion reaction Microscopic observation Gram stain Nom (Unsp spec) [facility] Work Phone: Laboratory - Microbiology an d Antimicrobial susceptibility Bacteria identified Cx Nom (Bld) No growth in 5 days. [facility] Work Phone: Vital Signs Date Time Vital Sign Value Performing Clinician Facility 03-10-2025 20:48-0400 Body temperature 99.4 [degF] Dr. Zaida Gaston MD Work Phone: [facility] 03-10-2025 20:48-0400 Diastolic blood pressure 70 mm[Hg] Dr. Zaida Gaston MD Work Phone: [facility] 03-10-2025 20:48-0400 Heart rate 69 /min Dr. Zaida Gaston MD Work Phone: [facility] 03-10-2025 20:48-0400 Respiratory rate 18 /min Dr. Zaida Gaston MD Work Phone: 1(774)340-377445 [place] [address] 03-10-2025 20:48-0400 SaO2% (BldA) [Mass fraction] 97 % Dr. Zaida Gaston MD Work Phone: 3(981)701-234645 [place] [address] 03-10-2025 20:48-0400 Systolic blood pressure 110 mm[Hg] Dr. Zaida Gaston MD Work Phone: 6(896)656-466445 [place] [address] 03-10-2025 15:13-0400 Body mass index (BMI) [Ratio] 25.8 kg/m2 Dr. Zaida Gaston MD Work Phone: 3(926)042-662745 [place] [address] 03-10-2025 15:13-0400 Body weight 77.[address] Zaida Gaston MD Work Phone: 1(557)893-161945 [place] [address] 03-10-2025 11:27-0400 Body height 172.[address] Zaida Gaston MD Work Phone: 1(896)851-346045 [place] [address] 02-07-2025 16:05-0400 Diastolic blood pressure 89 mm[Hg] Dr. Zaida Gaston MD Work Phone: 8(755)676-887645 [place] [address] 02-07-2025 16:05-0400 Heart rate 89 /min Dr. Zaida Gaston MD Work Phone: 3(847)801-745845 [place] [address] 02-07-2025 16:05-0400 Respiratory rate 16 /min Dr. Zaida Gaston MD Work Phone: 3(180)941-310845 [place] [address] 02-07-2025 16:05-0400 SaO2% (BldA) [Mass fraction] 99 % Dr. Zaida Gaston MD Work Phone: 8(160)143-133445 [place] [address] 02-07-2025 16:05-0400 Systolic blood pressure 147 mm[Hg] Dr. Zaida Gaston MD Work Phone: 2(470)744-089445 [place] [address] 02-07-2025 13:09-0400 Body height 172.[address] Zaida Gaston MD Work Phone: 6(203)243-821945 [place] [address] 02-07-2025 13:09-0400 Body mass index (BMI) [Ratio] 26.4 kg/m2 Dr. Zaida Gaston MD Work Phone: 0(749)320-682145 [place] [address] 02-07-2025 13:09-0400 Body temperature 98.2 [degF] Dr. Zaida Gaston MD Work Phone: 5(185)326-601045 [place] [address] 02-07-2025 13:09-0400 Body weight 78.[address] Zaida Gaston MD Work Phone: 7(949)703-328245 [place] [address] 02-05-2025 11:13-0400 Body mass index (BMI) [Ratio] 27.59 kg/m2 Zaida Gaston MD Work Phone: 4(961)185-994042 [place] [address] 02-05-2025 11:13-0400 Body weight 82.28 kg Zaida Gaston MD Work Phone: 7(172)549-427242 [place] [address] 02-05-2025 11:13-0400 Diastolic blood pressure 68 mm[Hg] Zaida Gaston MD Work Phone: 3(627)694-060242 [place] [address] 02-05-2025 11:13-0400 Heart rate 93 /min Zaida Gaston MD Work Phone: 1(406)030-549392 [place] [address] 02-05-2025 11:13-0400 Respiratory rate 16 /min Zaida Gaston MD Work Phone: 4(977)660-216092 [place] [address] 02-05-2025 11:13-0400 SaO2% (BldA) [Mass fraction] 95 % Zaida Gaston MD Work Phone: 2(901)305-579692 [place] [address] 02-05-2025 11:13-0400 Systolic blood pressure 106 mm[Hg] Zaida Gaston MD Work Phone: 2(283)934-611992 [place] [address] 01-27-2025 02:59-0400 Body temperature 98.6 [degF] Dr. Zaida Gaston MD Work Phone: 5(722)109-209145 [place] [address] 01-27-2025 02:59-0400 Diastolic blood pressure 63 mm[Hg] Dr. Zaida Gaston MD Work Phone: 5(259)742-238945 [place] [address] 01-27-2025 02:59-0400 Heart rate 70 /min Dr. Zaida Gaston MD Work Phone: 1(824)036-454645 [place] [address] 01-27-2025 02:59-0400 Respiratory rate 17 /min Dr. Zaida Gaston MD Work Phone: 7(644)995-425545 [place] [address] 01-27-2025 02:59-0400 SaO2% (BldA) [Mass fraction] 97 % Dr. Zaida Gaston MD Work Phone: 6(956)304-754545 [place] [address] 01-27-2025 02:59-0400 Systolic blood pressure 89 mm[Hg] Dr. Zaida Gaston MD Work Phone: 0(454)618-151845 [place] [address] 01-26-2025 15:50-0400 Body mass index (BMI) [Ratio] 29 kg/m2 Dr. Zaida Gaston MD Work Phone: 7(695)147-412945 [place] [address] 01-26-2025 15:50-0400 Body weight 86.[address] Zaida Gaston MD Work Phone: 0(999)576-115645 [place] [address] 01-26-2025 15:47-0400 Body height 172.[address] Zaida Gaston MD Work Phone: 5(222)362-468345 [place] [address] 11-19-2024 17:47-0400 Body temperature 97.8 [degF] Dr. Zaida Gaston MD Work Phone: 6(216)220-197345 [place] [address] 11-19-2024 17:47-0400 Diastolic blood pressure 72 mm[Hg] Dr. Zaida Gaston MD Work Phone: 5(082)220-605245 [place] [address] 11-19-2024 17:47-0400 Heart rate 89 /min Dr. Zaida Gaston MD Work Phone: 8(898)589-130045 [place] [address] 11-19-2024 17:47-0400 Respiratory rate 18 /min Dr. Zaida Gaston MD Work Phone: 1(915)122-092945 [place] [address] 11-19-2024 17:47-0400 SaO2% (BldA) [Mass fraction] 95 % Dr. Zaida Gaston MD Work Phone: 4(404)645-878945 [place] [address] 11-19-2024 17:47-0400 Systolic blood pressure 105 mm[Hg] Dr. Zaida Gaston MD Work Phone: 7(896)631-755546 [place] [address] 11-19-2024 14:20-0400 Body height 172.[address] Zaida Gaston MD Work Phone: 2(281)782-795845 [place] [address] 11-19-2024 14:20-0400 Body mass index (BMI) [Ratio] 28.5 kg/m2 Dr. Zaida Gaston MD Work Phone: 1(682)476-902945 [place] [address] 11-19-2024 14:20-0400 Body weight 85.[address] Zaida Gaston MD Work Phone: 9(164)026-821145 [place] [address] 09-28-2024 14:59-0500 Body mass index (BMI) [Ratio] 29.04 kg/m2 Zaida Gaston MD Work Phone: 8(617)815-430742 [place] [address] 09-28-2024 14:59-0500 Body weight 86.64 kg Zaida Gaston MD Work Phone: 9(712)315-603742 [place] [address] 09-28-2024 14:59-0500 Diastolic blood pressure 72 mm[Hg] Zaida Gaston MD Work Phone: 9(394)342-312442 [place] [address] 09-28-2024 14:59-0500 Heart rate 95 /min Zaida Gaston MD Work Phone: 7(339)053-991342 [place] [address] 09-28-2024 14:59-0500 Respiratory rate 16 /min Zaida Gaston MD Work Phone: 7(510)760-039842 [place] [address] 09-28-2024 14:59-0500 Systolic blood pressure 120 mm[Hg] Zaida Gaston MD Work Phone: 9(422)161-379042 [place] [address] 07-28-2024 10:37-0500 Body mass index (BMI) [Ratio] 29.5 kg/m2 Dr. Zaida Gaston MD Work Phone: 1(477)089-025545 [place] [address] 07-28-2024 10:37-0500 Body weight 88.[address] Zaida Gaston MD Work Phone: 2(999)331-190145 [place] [address] 07-28-2024 10:37-0500 Diastolic blood pressure 68 mm[Hg] Dr. Zaida Gaston MD Work Phone: [facility] 07-28-2024 10:37-0500 Heart rate 84 /min Dr. Zaida Gaston MD Work Phone: [facility] 07-28-2024 10:37-0500 SaO2% (BldA) [Mass fraction] 95 % Dr. Zaida Gaston MD Work Phone: [facility] 07-28-2024 10:37-0500 Systolic blood pressure 109 mm[Hg] Dr. Zaida Gaston MD Work Phone: 8(205)203-125846 [place] [address] 06-18-2024 12:32-0400 Diastolic blood pressure 96 mm[Hg] Zaida Gaston MD Work Phone: [facility] 06-18-2024 12:32-0400 Systolic blood pressure 151 mm[Hg] Zaida Gaston MD Work Phone: [facility] 06-18-2024 11:29-0400 Body mass index (BMI) [Ratio] 30.77 kg/m2 Zaida Gaston MD Work Phone: 4(454)136-618592 [place] [address] 06-18-2024 11:29-0400 Body weight 91.81 kg Zaida Gaston MD Work Phone: [facility] 06-18-2024 11:29-0400 Heart rate 100 /min Zaida Gaston MD Work Phone: [facility] 06-18-2024 11:29-0400 SaO2% (BldA) [Mass fraction] 99 % Zaida Gaston MD Work Phone: [facility] 04-01-2024 13:35-0400 Diastolic blood pressure 83 mm[Hg] Lali Raman MD Work Phone: [facility] 04-01-2024 13:35-0400 Heart rate 95 /min Lali Raman MD Work Phone: [facility] 04-01-2024 13:35-0400 Respiratory rate 18 /min Lali Raman MD Work Phone: [facility] 04-01-2024 13:35-0400 SaO2% (BldA) [Mass fraction] 99 % Lali Raman MD Work Phone: [facility] 04-01-2024 13:35-0400 Systolic blood pressure 152 mm[Hg] Lali Raman MD Work Phone: [facility] 04-01-2024 12:55-0400 Body temperature 98.8 [degF] Lali Raman MD Work Phone: [facility] 04-01-2024 11:46-0400 Body height 172.7 cm Lali Raman MD Work Phone: [facility] 04-01-2024 11:46-0400 Body mass index (BMI) [Ratio] 29.95 kg/m2 Lali Raman MD Work Phone: [facility] 04-01-2024 11:46-0400 Body weight 89.36 kg Lali Raman MD Work Phone: [facility] 03-24-2024 16:04-0400 Body height 172.7 cm Nia Jacob [employer]ELOP[employer]IST Work Phone: [facility] 03-24-2024 16:04-0400 Body mass index (BMI) [Ratio] 29.95 kg/m2 Nia Jacob [employer].WORK[employer] DEVELOPMENT SPECIALIST Work Phone: [facility] 03-24-2024 16:04-0400 Body temperature 97.9 [degF] Nia Jacob [employer] D[employer]ER.WORK[employer] DEVELOPMENT SPECIALIST Work Phone: [facility] 03-24-2024 16:04-0400 Body weight 89.36 kg Nia Jacob [employer] D[employer].WORK[employer] DEVELOPMENT SPECIALIST Work Phone: [facility] 03-24-2024 16:04-0400 Diastolic blood pressure 60 mm[Hg] Nia Jacob [employer] D[employer]ER.WORK[employer] DEVELOPMENT SPECIALIST Work Phone: [facility] 03-24-2024 16:04-0400 Heart rate 105 /min Nia Jacob [employer] D[employer]ER.WORK[employer] DEVELOPMENT SPECIALIST Work Phone: [facility] 03-24-2024 16:04-0400 SaO2% (BldA) [Mass fraction] 95 % Nia Jacob [employer] D[employer]ER.WORK[employer] DEVELOPMENT SPECIALIST Work Phone: [facility] 03-24-2024 16:04-0400 Systolic blood pressure 118 mm[Hg] Nia Jacob [employer] D[employer]ER.WORK[employer] DEVELOPMENT SPECIALIST Work Phone: [facility] 03-18-2024 17:31-0400 Body mass index (BMI) [Ratio] 30.26 kg/m2 Delia Older [employer] D[employer]ER.WORK[employer] DEVELOPMENT SPECIALIST Work Phone: [facility] 03-18-2024 17:31-0400 Body weight 90.27 kg Delia Older [employer] D[employer]ER.WORK[employer] DEVELOPMENT SPECIALIST Work Phone: [facility] 03-18-2024 17:31-0400 Diastolic blood pressure 72 mm[Hg] Delia Older [employer] D[employer]ER.WORK[employer] DEVELOPMENT SPECIALIST Work Phone: [facility] 03-18-2024 17:31-0400 Heart rate 102 /min Delia Older [employer] D[employer]ER.WORK[employer] DEVELOPMENT SPECIALIST Work Phone: [facility] 03-18-2024 17:31-0400 Respiratory rate 16 /min Delia Older [employer] D[employer]ER.WORK[employer] DEVELOPMENT SPECIALIST Work Phone: [facility] 03-18-2024 17:31-0400 SaO2% (BldA) [Mass fraction] 95 % Delia Older [employer] D[employer]ER.WORK[employer]CE DEVELOPMENT SPECIALIST Work Phone: [facility] 03-18-2024 17:31-0400 Systolic blood pressure 118 mm[Hg] Delia Older [employer] D[employer]ER.WORK[employer]CE DEVELOPMENT SPECIALIST Work Phone: [facility] 01-22-2024 16:40-0400 Body mass index (BMI) [Ratio] 30.72 kg/m2 Delia Older [employer].WORK[employer] DEVELOPMENT SPECIALIST Work Phone: [facility] 01-22-2024 16:40-0400 Body weight 91.63 kg Delia Older [employer] D[employer]ER.WORK[employer]CE DEVELOPMENT SPECIALIST Work Phone: [facility] 01-22-2024 16:40-0400 Diastolic blood pressure 78 mm[Hg] Delia Older [employer] D[employer]ER.WORK[employer]CE DEVELOPMENT SPECIALIST Work Phone: [facility] 01-22-2024 16:40-0400 Heart rate 97 /min Delia Older [employer] D[employer]ER.WORK[employer]CE DEVELOPMENT SPECIALIST Work Phone: [facility] 01-22-2024 16:40-0400 Respiratory rate 16 /min Delia Older [employer] DRA[employer]ER.WORK[employer]CE DEVELOPMENT SPECIALIST Work Phone: [facility] 01-22-2024 16:40-0400 SaO2% (BldA) [Mass fraction] 97 % Delia Older [employer] D[employer]ER.WORK[employer]CE DEVELOPMENT SPECIALIST Work Phone: [facility] 01-22-2024 16:40-0400 Systolic blood pressure 116 mm[Hg] Delia Older [employer] D[employer]ER.WORK[employer]CE DEVELOPMENT SPECIALIST Work Phone: [facility] 01-13-2024 13:33-0400 Body height 172.7 cm [employer] Work Phone: [facility] 01-13-2024 13:33-0400 Body mass index (BMI) [Ratio] 30.61 kg/m2 [employer] Work Phone: [facility] 01-13-2024 13:33-0400 Body temperature 97.7 [degF] [employer] Work Phone: [facility] 01-13-2024 13:33-0400 Body weight 91.3 kg [employer] Work Phone: [facility] 01-13-2024 13:33-0400 Diastolic blood pressure 73 mm[Hg] [employer] Work Phone: [facility] 01-13-2024 13:33-0400 Heart rate 104 /min [employer] Work Phone: [facility] 01-13-2024 13:33-0400 SaO2% (BldA) [Mass fraction] 98 % [employer] Work Phone: [facility] 01-13-2024 13:33-0400 Systolic blood pressure 127 mm[Hg] [employer] Work Phone: [facility] 01-02-2024 10:57-0400 Body height 172.[address] Zaida Gaston Work Phone: [facility] 01-02-2024 10:57-0400 Body mass index (BMI) [Ratio] 31.6 kg/m2 Dr. Zaida Gaston Work Phone: 2(468)140-995446 [place] [address] 01-02-2024 10:57-0400 Body temperature 98 [degF] Dr. Zaida Gaston Work Phone: 3(775)425-241245 [place] [address] 01-02-2024 10:57-0400 Body weight 94.[address] Zaida Gaston Work Phone: 5(872)941-333745 [place] [address] 01-02-2024 10:57-0400 Diastolic blood pressure 84 mm[Hg] Dr. Zaida Gaston Work Phone: 6(732)262-057945 [place] [address] 01-02-2024 10:57-0400 Heart rate 100 /min Dr. Zaida Gaston Work Phone: 2(005)496-760245 [place] [address] 01-02-2024 10:57-0400 Respiratory rate 18 /min Dr. Zaida Gaston Work Phone: 7(695)362-566045 [place] [address] 01-02-2024 10:57-0400 SaO2% (BldA) [Mass fraction] 93 % Dr. Zaida Gaston Work Phone: 3(442)907-537945 [place] [address] 01-02-2024 10:57-0400 Systolic blood pressure 135 mm[Hg] Dr. Zaida Gaston Work Phone: [facility] 11-26-2023 07:57-0400 Body height 172.7 cm Xiang Denbow PA-C Work Phone: [facility] 11-26-2023 07:57-0400 Body weight 95.71 kg Xiang Denbow PA-C Work Phone: [facility] 11-26-2023 07:57-0400 Diastolic blood pressure 80 mm[Hg] Xiang Denbow PA-C Work Phone: [facility] 11-26-2023 07:57-0400 Heart rate 104 /min Xiang Denbow PA-C Work Phone: [facility] 11-26-2023 07:57-0400 Respiratory rate 12 /min Xiang Denbow PA-C Work Phone: [facility] 11-26-2023 07:57-0400 SaO2% (BldA) [Mass fraction] 98 % Xiang Perez PA-C Work Phone: [facility] 11-26-2023 07:57-0400 Systolic blood pressure 140 mm[Hg] Xiang Perez PA-C Work Phone: [facility] 11-11-2023 13:29-0500 Body mass index (BMI) [Ratio] 31.6 kg/m2 Dr. Zaida Gaston Work Phone: [facility] 11-11-2023 13:29-0500 Body weight 94.[address] Zaida Gaston Work Phone: [facility] 11-11-2023 13:29-0500 Diastolic blood pressure 64 mm[Hg] Dr. Zaida Gaston Work Phone: 3(266)306-541746 [place] [address] 11-11-2023 13:29-0500 Heart rate 94 /min Dr. Zaida Gaston Work Phone: 6(604)267-207346 [place] [address] 11-11-2023 13:29-0500 Respiratory rate 18 /min Dr. Zaida Gaston Work Phone: [facility] 11-11-2023 13:29-0500 SaO2% (BldA) [Mass fraction] 96 % Dr. Zaida Gaston Work Phone: [facility] 11-11-2023 13:29-0500 Systolic blood pressure 103 mm[Hg] Dr. Zaida Gaston Work Phone: 2(560)241-396646 [place] [address] 10-24-2023 10:41-0500 Body mass index (BMI) [Ratio] 32.6 kg/m2 Dr. Zaida Gaston Work Phone: [facility] 10-24-2023 10:41-0500 Body temperature 98.9 [degF] Dr. Zaida Gaston Work Phone: 1(327)188-000846 [place] [address] 10-24-2023 10:41-0500 Body weight 97.[address] Zaida Gaston Work Phone: [facility] 10-24-2023 10:41-0500 Diastolic blood pressure 86 mm[Hg] Dr. Zaida Gaston Work Phone: [facility] 10-24-2023 10:41-0500 Heart rate 86 /min Dr. Zaida Gaston Work Phone: [facility] 10-24-2023 10:41-0500 Respiratory rate 18 /min Dr. Zaida Gaston Work Phone: [facility] 10-24-2023 10:41-0500 SaO2% (BldA) [Mass fraction] 98 % Dr. Zaida Gaston Work Phone: [facility] 10-24-2023 10:41-0500 Systolic blood pressure 126 mm[Hg] Dr. Zaida Gaston Work Phone: [facility] 09-18-2023 14:37-0500 Body weight 90.72 kg Delia Older [employer].WORK[employer] DEVELOPMENT SPECIALIST Work Phone: [facility] 09-18-2023 14:37-0500 Diastolic blood pressure 76 mm[Hg] Delia Older [employer] D[employer]ER.WORK[employer] DEVELOPMENT SPECIALIST Work Phone: [facility] 09-18-2023 14:37-0500 Heart rate 96 /min Delia Older [employer] D[employer]ER.WORK[employer]CE DEVELOPMENT SPECIALIST Work Phone: [facility] 09-18-2023 14:37-0500 Respiratory rate 16 /min Delia Older [employer] D[employer]ER.WORK[employer]CE DEVELOPMENT SPECIALIST Work Phone: [facility] 09-18-2023 14:37-0500 SaO2% (BldA) [Mass fraction] 98 % Delia Older [employer] D[employer]ER.WORKFORCE DEVELOPMENT SPECIALIST Work Phone: [facility] 09-18-2023 14:37-0500 Systolic blood pressure 128 mm[Hg] Delia Older [employer] D[employer]ER.WORK[employer] DEVELOPMENT SPECIALIST Work Phone: [facility] 08-20-2023 14:43-0500 Body weight 90.27 kg Oscar Mas PA-C Work Phone: [facility] 08-13-2023 16:08-0500 Body height 172.7 cm Oscar Mas PA-C Work Phone: [facility] 08-13-2023 16:08-0500 Body temperature 98.29 [degF] Oscar Mas PA-C Work Phone: [facility] 08-13-2023 16:08-0500 Body weight 90.63 kg Oscar Mas PA-C Work Phone: [facility] 08-13-2023 16:08-0500 Diastolic blood pressure 60 mm[Hg] Oscar Mas PA-C Work Phone: [facility] 08-13-2023 16:08-0500 Heart rate 98 /min Oscar Mas PA-C Work Phone: [facility] 08-13-2023 16:08-0500 Respiratory rate 14 /min Oscar Mas PA-C Work Phone: [facility] 08-13-2023 16:08-0500 SaO2% (BldA) [Mass fraction] 97 % Oscar Mas PA-C Work Phone: [facility] 08-13-2023 16:08-0500 Systolic blood pressure 108 mm[Hg] Oscar Mas PA-C Work Phone: [facility] 07-15-2023 14:14-0500 Body height 172.7 cm [employer] Work Phone: [facility] 07-15-2023 14:14-0500 Body temperature 97 [degF] [employer] Work Phone: [facility] 07-15-2023 14:14-0500 Body weight 92.85 kg [employer] Work Phone: [facility] 07-15-2023 14:14-0500 Diastolic blood pressure 78 mm[Hg] [employer] Work Phone: [facility] 07-15-2023 14:14-0500 Heart rate 82 /min [employer] Work Phone: [facility] 07-15-2023 14:14-0500 SaO2% (BldA) [Mass fraction] 100 % [employer] Work Phone: [facility] 07-15-2023 14:14-0500 Systolic blood pressure 116 mm[Hg] [employer] Work Phone: [facility] 05-21-2023 15:10-0400 Body weight 92.99 kg Xiang Denbow PA-C Work Phone: [facility] 05-21-2023 15:10-0400 Diastolic blood pressure 83 mm[Hg] Xiang Denbow PA-C Work Phone: [facility] 05-21-2023 15:10-0400 Heart rate 96 /min Xiang Denbow PA-C Work Phone: [facility] 05-21-2023 15:10-0400 Respiratory rate 16 /min Xiang Denbow PA-C Work Phone: [facility] 05-21-2023 15:10-0400 Systolic blood pressure 132 mm[Hg] Xiang Denbow PA-C Work Phone: [facility] 03-14-2023 07:00-0400 Respiratory rate 16 /min Dr. Zaida Gaston Work Phone: [facility] 03-14-2023 03:49-0400 Diastolic blood pressure 74 mm[Hg] Dr. Zaida Gaston Work Phone: [facility] 03-14-2023 03:49-0400 Heart rate 69 /min Dr. Zaida Gaston Work Phone: [facility] 03-14-2023 03:49-0400 Inhaled oxygen flow rate 97 L/min Dr. Zaida Gaston Work Phone: [facility] 03-14-2023 03:49-0400 Systolic blood pressure 130 mm[Hg] Dr. Zaida Gaston Work Phone: [facility] 03-14-2023 01:00-0400 SaO2% (BldA) [Mass fraction] 97 % Dr. Zaida Gaston Work Phone: [facility] 03-13-2023 22:22-0400 Body height 172.[address] Zaida Gaston Work Phone: [facility] 03-13-2023 22:22-0400 Body mass index (BMI) [Ratio] 33.2 kg/m2 Dr. Zaida Gaston Work Phone: [facility] 03-13-2023 22:22-0400 Body temperature 95.6 [degF] Dr. Zaida Gaston Work Phone: [facility] 03-13-2023 22:22-0400 Body weight [address] Zaida Gaston Work Phone: [facility] 02-25-2023 11:55-0400 Body height 172.7 cm Zaida Gaston MD Work Phone: [facility] 02-25-2023 11:55-0400 Body temperature 98.49 [degF] Zaida Gaston MD Work Phone: [facility] 02-25-2023 11:55-0400 Body weight 100.7 kg Zaida Gaston MD Work Phone: [facility] 02-25-2023 11:55-0400 Diastolic blood pressure 62 mm[Hg] Zaida Gaston MD Work Phone: [facility] 02-25-2023 11:55-0400 Heart rate 85 /min Zaida Gaston MD Work Phone: [facility] 02-25-2023 11:55-0400 Respiratory rate 12 /min Zaida Gaston MD Work Phone: [facility] 02-25-2023 11:55-0400 SaO2% (BldA) [Mass fraction] 96 % Zaida Gaston MD Work Phone: [facility] 02-25-2023 11:55-0400 Systolic blood pressure 130 mm[Hg] Zaida Gaston MD Work Phone: [facility] 02-21-2023 14:02-0400 Body mass index (BMI) [Ratio] 34.3 kg/m2 Dr. Zaida Gaston Work Phone: [facility] 02-21-2023 14:02-0400 Body weight 102.[address] Zaida Gaston Work Phone: 3(565)123-710945 [place] [address] 02-21-2023 14:02-0400 Diastolic blood pressure 62 mm[Hg] Dr. Zaida Gaston Work Phone: 8(110)331-715245 [place] [address] 02-21-2023 14:02-0400 Heart rate 80 /min Dr. Zaida Gaston Work Phone: 3(726)735-237345 [place] [address] 02-21-2023 14:02-0400 Respiratory rate 18 /min Dr. Zaida Gaston Work Phone: 3(279)129-984545 [place] [address] 02-21-2023 14:02-0400 SaO2% (BldA) [Mass fraction] 98 % Dr. Zaida Gaston Work Phone: 9(408)048-079945 [place] [address] 02-21-2023 14:02-0400 Systolic blood pressure 107 mm[Hg] Dr. Zaida Gaston Work Phone: 8(286)692-327645 [place] [address] 01-14-2023 09:37-0400 Body height 172.[address] Zaida Gaston Work Phone: 5(501)061-840745 [place] [address] 01-14-2023 09:37-0400 Body mass index (BMI) [Ratio] 35.3 kg/m2 Dr. Zaida Gaston Work Phone: 8(193)732-575245 [place] [address] 01-14-2023 09:37-0400 Body temperature 97.5 [degF] Dr. Zaida Gaston Work Phone: 1(515)883-949645 [place] [address] 01-14-2023 09:37-0400 Body weight 105.[address] Zaida Gaston Work Phone: 2(298)843-320245 [place] [address] 01-14-2023 09:37-0400 Diastolic blood pressure 72 mm[Hg] Dr. Zaida Gaston Work Phone: [facility] 01-14-2023 09:37-0400 Heart rate 91 /min Dr. Zaida Gaston Work Phone: [facility] 01-14-2023 09:37-0400 Respiratory rate 16 /min Dr. Zaida Gaston Work Phone: [facility] 01-14-2023 09:37-0400 SaO2% (BldA) [Mass fraction] 95 % Dr. Zaida Gaston Work Phone: [facility] 01-14-2023 09:37-0400 Systolic blood pressure 109 mm[Hg] Dr. Zaida Gaston Work Phone: [facility] 12-31-2022 15:29-0400 Body height 172.7 cm [facility] Work Phone: [facility] 12-31-2022 15:29-0400 Body temperature 98.71 [degF] [facility] Work Phone: [facility] 12-31-2022 15:29-0400 Body weight 102.51 kg [facility] Work Phone: [facility] 12-31-2022 15:29-0400 Diastolic blood pressure 65 mm[Hg] [facility] Work Phone: [facility] 12-31-2022 15:29-0400 Heart rate 96 /min [facility] Work Phone: [facility] 12-31-2022 15:29-0400 SaO2% (BldA) [Mass fraction] 96 % [facility] Work Phone: [facility] 12-31-2022 15:29-0400 Systolic blood pressure 145 mm[Hg] [facility] Work Phone: [facility] 11-23-2022 14:29-0400 Body temperature 97.39 [degF] Zaida Gaston MD Work Phone: [facility] 11-23-2022 14:29-0400 Body weight 107.05 kg Zaida Gaston MD Work Phone: [facility] 11-23-2022 14:29-0400 Diastolic blood pressure 72 mm[Hg] Zaida Gaston MD Work Phone: [facility] 11-23-2022 14:29-0400 Heart rate 86 /min Zaida Gaston MD Work Phone: [facility] 11-23-2022 14:29-0400 Respiratory rate 16 /min Zaida Gaston MD Work Phone: [facility] 11-23-2022 14:29-0400 SaO2% (BldA) [Mass fraction] 95 % Zaida Gaston MD Work Phone: [facility] 11-23-2022 14:29-0400 Systolic blood pressure 118 mm[Hg] Zaida Gaston MD Work Phone: [facility] 11-05-2022 20:03-0500 Body temperature 98.4 [degF] Dr. Zaida Gaston Work Phone: 4(978)860-153646 [place] [address] 11-05-2022 20:03-0500 Diastolic blood pressure 75 mm[Hg] Dr. Zaida Gaston Work Phone: 1(837)221-724245 [place] [address] 11-05-2022 20:03-0500 Heart rate 86 /min Dr. Zaida Gaston Work Phone: 3(686)468-588446 [place] [address] 11-05-2022 20:03-0500 Respiratory rate 16 /min Dr. Zaida Gaston Work Phone: 9(462)253-845546 [place] [address] 11-05-2022 20:03-0500 SaO2% (BldA) [Mass fraction] 98 % Dr. Zaida Gaston Work Phone: 7(757)544-824646 [place] [address] 11-05-2022 20:03-0500 Systolic blood pressure 147 mm[Hg] Dr. Zaida Gaston Work Phone: 5(100)874-059446 [place] [address] 11-02-2022 12:26-0500 Body height 172.[address] Zaida Gaston Work Phone: 1(578)941-996346 [place] [address] 11-02-2022 12:26-0500 Body weight 108.[address] Zaida Gaston Work Phone: 1(169)305-817246 [place] [address] 11-01-2022 17:43-0500 Inhaled oxygen flow rate 2 L/min Dr. Zaida Gaston Work Phone: 4(538)831-960645 [place] [address] 11-01-2022 11:06-0500 Body temperature 97.6 [degF] Dr. Zaida Gaston Work Phone: 4(625)585-684245 [place] [address] 11-01-2022 11:06-0500 Diastolic blood pressure 96 mm[Hg] Dr. Zaida Gaston Work Phone: 7(425)073-390745 [place] [address] 11-01-2022 11:06-0500 Heart rate 89 /min Dr. Zaida Gaston Work Phone: 3(054)707-056645 [place] [address] 11-01-2022 11:06-0500 Respiratory rate 16 /min Dr. Zaida Gaston Work Phone: 9(101)335-795745 [place] [address] 11-01-2022 11:06-0500 SaO2% (BldA) [Mass fraction] 96 % Dr. Zaida Gaston Work Phone: 3(541)691-210345 [place] [address] 11-01-2022 11:06-0500 Systolic blood pressure 160 mm[Hg] Dr. Zaida Gaston Work Phone: 3(308)660-384645 [place] [address] 11-01-2022 10:26-0500 Body height 172.[address] Zaida Gaston Work Phone: 2(806)313-371145 [place] [address] 11-01-2022 10:26-0500 Body mass index (BMI) [Ratio] 80.3 kg/m2 Dr. Zaida Gaston Work Phone: 9(041)297-950245 [place] [address] 11-01-2022 10:26-0500 Body weight 239.[address] Zaida Gaston Work Phone: 8(317)162-443645 [place] [address] 11-01-2022 07:52-0500 Body mass index (BMI) [Ratio] 34.2 kg/m2 Dr. Zaida Gaston Work Phone: 0(034)089-978645 [place] [address] 11-01-2022 07:52-0500 Body temperature 97.2 [degF] Dr. Zaida aGston Work Phone: 8(441)091-947745 [place] [address] 11-01-2022 07:52-0500 Diastolic blood pressure 74 mm[Hg] Dr. Zaida Gaston Work Phone: 6(282)131-773045 [place] [address] 11-01-2022 07:52-0500 Heart rate 89 /min Dr. Zaida Gaston Work Phone: 6(245)972-279845 [place] [address] 11-01-2022 07:52-0500 Systolic blood pressure 135 mm[Hg] Dr. Zaida Gaston Work Phone: 5(129)103-066245 [place] [address] 10-18-2022 09:14-0500 Body mass index (BMI) [Ratio] 34.7 kg/m2 Dr. Zaida Gaston Work Phone: 9(151)252-833845 [place] [address] 10-18-2022 09:14-0500 Body temperature 96.3 [degF] Dr. Zaida Gaston Work Phone: 9(275)831-181845 [place] [address] 10-18-2022 09:14-0500 Body weight 106.[address] Zaida Gaston Work Phone: 0(037)896-016245 [place] [address] 10-18-2022 09:14-0500 Diastolic blood pressure 79 mm[Hg] Dr. Zaida Gaston Work Phone: 5(923)299-216845 [place] [address] 10-18-2022 09:14-0500 Heart rate 89 /min Dr. Zaida Gaston Work Phone: 0(653)014-038845 [place] [address] 10-18-2022 09:14-0500 Respiratory rate 20 /min Dr. Zaida Gaston Work Phone: 1(137)259-308045 [place] [address] 10-18-2022 09:14-0500 SaO2% (BldA) [Mass fraction] 91 % Dr. Zaida Gaston Work Phone: 6(729)677-744645 [place] [address] 10-18-2022 09:14-0500 Systolic blood pressure 129 mm[Hg] Dr. Zaida Gaston Work Phone: 7(383)748-448245 [place] [address] 10-18-2022 07:59-0500 Respiratory rate 16 /min Dr. Zaida Gaston Work Phone: [facility] 10-10-2022 00:28-0500 Body weight 102.[address] Zaida Gaston Work Phone: [facility] 10-04-2022 13:30-0500 Diastolic blood pressure 64 mm[Hg] [facility] Work Phone: [facility] 10-04-2022 13:30-0500 Heart rate 93 /min [facility] Work Phone: [facility] 10-04-2022 13:30-0500 Systolic blood pressure 103 mm[Hg] Verna [facility] Work Phone: [facility] 09-27-2022 08:03-0500 Body mass index (BMI) [Ratio] 34.2 kg/m2 Dr. Zaida Gaston Work Phone: [facility] 09-27-2022 08:03-0500 Body temperature 96.9 [degF] Dr. Zaida Gaston Work Phone: [facility] 09-27-2022 08:03-0500 Diastolic blood pressure 77 mm[Hg] Dr. Zaida Gaston Work Phone: [facility] 09-27-2022 08:03-0500 Heart rate 92 /min Dr. Zaida Gaston Work Phone: [facility] 09-27-2022 08:03-0500 Respiratory rate 16 /min Dr. Zaida Gaston Work Phone: [facility] 09-27-2022 08:03-0500 Systolic blood pressure 117 mm[Hg] Dr. Zaida Gaston Work Phone: [facility] 09-24-2022 10:41-0500 Body height 172.7 cm [facility] Work Phone: [facility] 09-24-2022 10:41-0500 Body temperature 98.6 [degF] [facility] Work Phone: [facility] 09-24-2022 10:41-0500 Body weight 104.06 kg [facility] Work Phone: [facility] 09-24-2022 10:41-0500 Diastolic blood pressure 70 mm[Hg] [facility] Work Phone: [facility] 09-24-2022 10:41-0500 Heart rate 93 /min [facility] Work Phone: [facility] 09-24-2022 10:41-0500 SaO2% (BldA) [Mass fraction] 95 % [facility] Work Phone: [facility] 09-24-2022 10:41-0500 Systolic blood pressure 148 mm[Hg] [facility] Work Phone: [facility] 09-09-2022 00:22-0500 Body weight 102.[address] Zaida Gaston Work Phone: [facility] 09-06-2022 12:24-0500 Body mass index (BMI) [Ratio] 34.2 kg/m2 Dr. Zaida Gaston Work Phone: [facility] 09-06-2022 12:24-0500 Body temperature 95.8 [degF] Dr. Zaida Gaston Work Phone: [facility] 09-06-2022 12:24-0500 Diastolic blood pressure 72 mm[Hg] Dr. Zaida Gaston Work Phone: [facility] 09-06-2022 12:24-0500 Heart rate 69 /min Dr. Zaida Gaston Work Phone: [facility] 09-06-2022 12:24-0500 Systolic blood pressure 126 mm[Hg] Dr. Zaida Gaston Work Phone: [facility] 09-06-2022 10:25-0500 Body height 172.[address] Zaida Gaston Work Phone: [facility] 09-06-2022 10:25-0500 Body mass index (BMI) [Ratio] 34.2 kg/m2 Dr. Zaida Gaston Work Phone: [phone] [place] [address] 09-06-2022 10:25-0500 Body temperature 96.9 [degF] Dr. Zaida Gaston Work Phone: 2(279)449-609445 [place] [address] 09-06-2022 10:25-0500 Body weight 102.[address] Zaida Gaston Work Phone: 9(398)278-274945 [place] [address] 09-06-2022 10:25-0500 Diastolic blood pressure 87 mm[Hg] Dr. Zaida Gaston Work Phone: 4(664)321-264345 [place] [address] 09-06-2022 10:25-0500 Heart rate 83 /min Dr. Zaida Gaston Work Phone: 3(689)374-043545 [place] [address] 09-06-2022 10:25-0500 Respiratory rate 18 /min Dr. Zaida Gaston Work Phone: 0(981)139-907245 [place] [address] 09-06-2022 10:25-0500 SaO2% (BldA) [Mass fraction] 95 % Dr. Zaida Gaston Work Phone: 0(193)466-130445 [place] [address] 09-06-2022 10:25-0500 Systolic blood pressure 149 mm[Hg] Dr. Zaida Gaston Work Phone: 8(640)872-280245 [place] [address] 09-05-2022 11:05-0500 Respiratory rate 17 /min Dr. Zaida Gaston Work Phone: 8(556)333-196245 [place] [address] 08-28-2022 11:20-0500 Diastolic blood pressure 66 mm[Hg] Dr. Zaida Gaston Work Phone: 9(831)895-278845 [place] [address] 08-28-2022 11:20-0500 Heart rate 76 /min Dr. Zaida Gaston Work Phone: 1(058)565-860345 [place] [address] 08-28-2022 11:20-0500 Respiratory rate 12 /min Dr. Zaida Gaston Work Phone: 6(356)750-953945 [place] [address] 08-28-2022 11:20-0500 SaO2% (BldA) [Mass fraction] 94 % Dr. Zaida Gaston Work Phone: 9(653)072-404245 [place] [address] 08-28-2022 11:20-0500 Systolic blood pressure 115 mm[Hg] Dr. Zaida Gaston Work Phone: [facility] 08-28-2022 10:03-0500 Body height 172.[address] Zaida Gaston Work Phone: [facility] Work Phone: 08-28-2022 10:03-0500 Body mass index (BMI) [Ratio] 34.1 kg/m2 Dr. Zaiad Gaston Work Phone: [facility] 08-28-2022 10:03-0500 Body temperature 96.7 [degF] Dr. Zaida Gaston Work Phone: [facility] 08-28-2022 10:03-0500 Body weight 101.[address] Zaida Gaston Work Phone: [facility] 08-28-2022 09:10-0500 Body temperature 97.4 [degF] Dr. Zaida Gaston Work Phone: [facility] Work Phone: 08-28-2022 09:10-0500 Diastolic blood pressure 87 mm[Hg] Dr. Zaida Gaston Work Phone: [facility] Work Phone: 08-28-2022 09:10-0500 Heart rate 75 /min Dr. Zaida Gaston Work Phone: [facility] Work Phone: 08-28-2022 09:10-0500 Respiratory rate 15 /min Dr. Zaida Gaston Work Phone: [facility] Work Phone: 08-28-2022 09:10-0500 Systolic blood pressure 155 mm[Hg] Dr. Zaida Gaston Work Phone: [facility] Work Phone: 08-25-2022 09:50-0500 Body temperature 98.29 [degF] Zaida Gaston MD Work Phone: [facility] 08-25-2022 09:50-0500 Body weight 101.61 kg Zaida Gaston MD Work Phone: [facility] 08-25-2022 09:50-0500 Diastolic blood pressure 72 mm[Hg] Zaida Gaston MD Work Phone: [facility] 08-25-2022 09:50-0500 Heart rate 84 /min Zaida Gaston MD Work Phone: [facility] 08-25-2022 09:50-0500 Respiratory rate 16 /min Zaida Gaston MD Work Phone: [facility] 08-25-2022 09:50-0500 Systolic blood pressure 134 mm[Hg] Zaida Gaston MD Work Phone: [facility] 08-23-2022 10:36-0500 Body mass index (BMI) [Ratio] 34.2 kg/m2 Dr. Zaida Gaston Work Phone: [facility] Work Phone: 08-17-2022 14:56-0500 Diastolic blood pressure 70 mm[Hg] Dr. Zaida Gaston Work Phone: [facility] 08-17-2022 14:56-0500 Systolic blood pressure 130 mm[Hg] Dr. Zaida Gaston Work Phone: 5(917)174-157146 [place] [address] 08-17-2022 14:55-0500 Body mass index (BMI) [Ratio] 34 kg/m2 Dr. Zaida Gaston Work Phone: 4(185)413-209246 [place] [address] 08-17-2022 14:55-0500 Body weight 101.[address] Zaida Gaston Work Phone: 9(457)830-391146 [place] [address] 08-17-2022 14:55-0500 Heart rate 92 /min Dr. Zaida Gaston Work Phone: [facility] 08-17-2022 14:55-0500 Respiratory rate 18 /min Dr. Zaida Gaston Work Phone: [facility] 08-17-2022 14:55-0500 SaO2% (BldA) [Mass fraction] 97 % Dr. Zaida Gaston Work Phone: [facility] 08-09-2022 00:26-0500 Body weight 102.[address] Zaida Gaston Work Phone: [facility] 08-08-2022 11:07-0500 Body temperature 97.3 [degF] Dr. Zaida Gaston Work Phone: [facility] 08-08-2022 11:07-0500 Diastolic blood pressure 71 mm[Hg] Dr. Zaida Gaston Work Phone: [facility] 08-08-2022 11:07-0500 Heart rate 86 /min Dr. Zaida Gaston Work Phone: [facility] 08-08-2022 11:07-0500 Respiratory rate 17 /min Dr. Zaida Gaston Work Phone: [facility] 08-08-2022 11:07-0500 Systolic blood pressure 147 mm[Hg] Dr. Zaida Gaston Work Phone: [facility] 08-03-2022 11:24-0500 Body height 172.7 cm [facility] Work Phone: [facility] 08-03-2022 11:24-0500 Body temperature 98.91 [degF] [facility] Work Phone: [facility] 08-03-2022 11:24-0500 Body weight 101.33 kg [facility] Work Phone: [facility] 08-03-2022 11:24-0500 Diastolic blood pressure 64 mm[Hg] [facility] Work Phone: [facility] 08-03-2022 11:24-0500 Heart rate 82 /min [facility] Work Phone: [facility] 08-03-2022 11:24-0500 SaO2% (BldA) [Mass fraction] 94 % [facility] Work Phone: [facility] 08-03-2022 11:24-0500 Systolic blood pressure 117 mm[Hg] [facility] Work Phone: [facility] 07-26-2022 10:35-0500 Body mass index (BMI) [Ratio] 34.2 kg/m2 Dr. Zaida Gaston Work Phone: [facility] 07-13-2022 15:46-0400 Body height 172.7 cm Zaida Gaston MD Work Phone: [facility] 07-13-2022 15:46-0400 Body temperature 98.2 [degF] Zaida Gaston MD Work Phone: [facility] 07-13-2022 15:46-0400 Body weight 101.15 kg Zaida Gaston MD Work Phone: [facility] 07-13-2022 15:46-0400 Diastolic blood pressure 80 mm[Hg] Zaida Gaston MD Work Phone: [facility] 07-13-2022 15:46-0400 Heart rate 92 /min Zaida Gaston MD Work Phone: [facility] 07-13-2022 15:46-0400 Respiratory rate 14 /min Zaida Gaston MD Work Phone: [facility] 07-13-2022 15:46-0400 SaO2% (BldA) [Mass fraction] 96 % Zaida Gaston MD Work Phone: [facility] 07-13-2022 15:46-0400 Systolic blood pressure 152 mm[Hg] Zaida Gaston MD Work Phone: [facility] 07-10-2022 00:27-0400 Body weight 102.[address] Zaida Gaston Work Phone: [facility] 07-09-2022 15:36-0400 Body temperature 97.8 [degF] Dr. Zaida Gaston Work Phone: [facility] 07-09-2022 15:36-0400 Diastolic blood pressure 83 mm[Hg] Dr. Zaida Gaston Work Phone: [facility] 07-09-2022 15:36-0400 Heart rate 78 /min Dr. Zaida Gaston Work Phone: [facility] 07-09-2022 15:36-0400 Respiratory rate 20 /min Dr. Zaida Gaston Work Phone: [facility] 07-09-2022 15:36-0400 Systolic blood pressure 142 mm[Hg] Dr. Zaida Gaston Work Phone: [facility] 07-05-2022 11:55-0400 Body height 172.7 cm [facility] Work Phone: [facility] 07-05-2022 11:55-0400 Body temperature 98.2 [degF] [facility] Work Phone: [facility] 07-05-2022 11:55-0400 Body weight 99.79 kg [facility] Work Phone: [facility] 07-05-2022 11:55-0400 Diastolic blood pressure 65 mm[Hg] [facility] Work Phone: [facility] 07-05-2022 11:55-0400 Heart rate 83 /min [facility] Work Phone: [facility] 07-05-2022 11:55-0400 SaO2% (BldA) [Mass fraction] 96 % [facility] Work Phone: [facility] 07-05-2022 11:55-0400 Systolic blood pressure 114 mm[Hg] [facility] Work Phone: [facility] 06-28-2022 09:05-0400 Body mass index (BMI) [Ratio] 34.2 kg/m2 Dr. Zaida Gaston Work Phone: [facility] 06-09-2022 01:21-0400 Body weight 102.[address] Zaida Gaston Work Phone: [facility] 06-08-2022 11:37-0400 Body height 172.7 cm [facility] Work Phone: [facility] 06-08-2022 11:37-0400 Body temperature 99.3 [degF] [facility] Work Phone: [facility] 06-08-2022 11:37-0400 Body weight 96.62 kg [facility] Work Phone: [facility] 06-08-2022 11:37-0400 Diastolic blood pressure 72 mm[Hg] [facility] Work Phone: [facility] 06-08-2022 11:37-0400 Heart rate 100 /min [facility] Work Phone: [facility] 06-08-2022 11:37-0400 SaO2% (BldA) [Mass fraction] 97 % [facility] Work Phone: [facility] 06-08-2022 11:37-0400 Systolic blood pressure 133 mm[Hg] [facility] Work Phone: [facility] 06-07-2022 09:01-0400 Body mass index (BMI) [Ratio] 34.2 kg/m2 Dr. Zaida Gaston Work Phone: [facility] Work Phone: 06-07-2022 09:01-0400 Body temperature 97.8 [degF] Dr. Zaida Gaston Work Phone: [facility] Work Phone: 06-07-2022 09:01-0400 Diastolic blood pressure 73 mm[Hg] Dr. Zaida Gaston Work Phone: [facility] Work Phone: 06-07-2022 09:01-0400 Heart rate 63 /min Dr. Zaida Gaston Work Phone: [facility] Work Phone: 06-07-2022 09:01-0400 Systolic blood pressure 117 mm[Hg] Dr. Zaida Gaston Work Phone: [facility] Work Phone: 05-10-2022 10:22-0400 Respiratory rate 16 /min Dr. Zaida Gatson Work Phone: [facility] Work Phone: 05-10-2022 00:31-0400 Body weight 102.[address] Zaida Gaston Work Phone: [facility] Work Phone: 05-09-2022 13:36-0400 Body mass index (BMI) [Ratio] 34.2 kg/m2 Dr. Zaida Gaston Work Phone: [facility] Work Phone: 05-09-2022 13:36-0400 Body temperature 97.1 [degF] Dr. Zaida Gaston Work Phone: [facility] Work Phone: 05-09-2022 13:36-0400 Diastolic blood pressure 74 mm[Hg] Dr. Zaida Gaston Work Phone: [facility] Work Phone: 05-09-2022 13:36-0400 Heart rate 92 /min Dr. Zaida Gaston Work Phone: [facility] Work Phone: 05-09-2022 13:36-0400 Respiratory rate 16 /min Dr. Zaida Gaston Work Phone: [facility] Work Phone: 05-09-2022 13:36-0400 Systolic blood pressure 145 mm[Hg] Dr. Zaida Gaston Work Phone: [facility] Work Phone: 04-12-2022 09:08-0400 Body mass index (BMI) [Ratio] 34.2 kg/m2 Dr. Zaida Gaston Work Phone: [facility] Work Phone: 04-12-2022 09:08-0400 Body temperature 97.5 [degF] Dr. Zaida Gaston Work Phone: [facility] Work Phone: 04-12-2022 09:08-0400 Diastolic blood pressure 76 mm[Hg] Dr. Zaida Gaston Work Phone: [facility] Work Phone: 04-12-2022 09:08-0400 Heart rate 101 /min Dr. Zaida Gaston Work Phone: [facility] Work Phone: 04-12-2022 09:08-0400 Systolic blood pressure 124 mm[Hg] Dr. Zaida Gaston Work Phone: [facility] Work Phone: 04-10-2022 16:15-0400 Body height 172.7 cm Zaida Gaston MD Work Phone: [facility] 04-10-2022 16:15-0400 Body temperature 99.3 [degF] Zaida Gaston MD Work Phone: [facility] 04-10-2022 16:15-0400 Body weight 94.8 kg Zaida Gaston MD Work Phone: [facility] 04-10-2022 16:15-0400 Diastolic blood pressure 60 mm[Hg] Zaida Gaston MD Work Phone: [facility] 04-10-2022 16:15-0400 Heart rate 97 /min Zaida Gaston MD Work Phone: [facility] 04-10-2022 16:15-0400 Respiratory rate 12 /min Zaida Gaston MD Work Phone: [facility] 04-10-2022 16:15-0400 SaO2% (BldA) [Mass fraction] 95 % Zaida Gaston MD Work Phone: [facility] 04-10-2022 16:15-0400 Systolic blood pressure 122 mm[Hg] Zaida Gaston MD Work Phone: [facility] 04-09-2022 00:28-0400 Body weight 102.[address] Zaida Gaston Work Phone: [facility] Work Phone: 04-09-2022 00:28-0400 Respiratory rate 20 /min Dr. Zaida Gaston Work Phone: [facility] Work Phone: 04-05-2022 08:39-0400 Body mass index (BMI) [Ratio] 34.2 kg/m2 Dr. Zaida Gaston Work Phone: [facility] Work Phone: 04-05-2022 08:39-0400 Body temperature 98.4 [degF] Dr. Zaida Gaston Work Phone: [facility] Work Phone: 04-05-2022 08:39-0400 Diastolic blood pressure 82 mm[Hg] Dr. Zaida Gaston Work Phone: [facility] Work Phone: 04-05-2022 08:39-0400 Heart rate 95 /min Dr. Zaida Gaston Work Phone: [facility] Work Phone: 04-05-2022 08:39-0400 Respiratory rate 20 /min Dr. Zaida Gaston Work Phone: [facility] Work Phone: 04-05-2022 08:39-0400 Systolic blood pressure 186 mm[Hg] Dr. Zaida Gaston Work Phone: [facility] Work Phone: 03-28-2022 10:39-0400 Body temperature 98.2 [degF] Dr. Zaida Gaston Work Phone: [facility] Work Phone: 03-28-2022 10:39-0400 Diastolic blood pressure 87 mm[Hg] Dr. Zaida Gaston Work Phone: [facility] Work Phone: 03-28-2022 10:39-0400 Heart rate 85 /min Dr. Zaida Gaston Work Phone: [facility] Work Phone: 03-28-2022 10:39-0400 Respiratory rate 16 /min Dr. Zaida Gaston Work Phone: [facility] Work Phone: 03-28-2022 10:39-0400 SaO2% (BldA) [Mass fraction] 96 % Dr. Zaida Gaston Work Phone: [facility] Work Phone: 03-28-2022 10:39-0400 Systolic blood pressure 138 mm[Hg] Dr. Zaida Gaston Work Phone: [facility] Work Phone: 03-28-2022 06:00-0400 Body weight 96.[address] Zaida Gaston Work Phone: [facility] Work Phone: 03-27-2022 13:38-0400 Body height 172.[address] Zaida Gaston Work Phone: [facility] Work Phone: 03-24-2022 12:00-0400 Inhaled oxygen flow rate 2 L/min Dr. Zaida Gaston Work Phone: [facility] Work Phone: 03-24-2022 03:32-0400 Body mass index (BMI) [Ratio] 31.7 kg/m2 Dr. Zaida Gaston Work Phone: [facility] Work Phone: 03-24-2022 03:12-0400 Body temperature 100.2 [degF] Dr. Zaida Gaston Work Phone: [facility] Work Phone: 03-24-2022 03:12-0400 Diastolic blood pressure 61 mm[Hg] Dr. Zaida Gaston Work Phone: [facility] Work Phone: 03-24-2022 03:12-0400 Heart rate 107 /min Dr. Zaida Gaston Work Phone: [facility] Work Phone: 03-24-2022 03:12-0400 Respiratory rate 20 /min Dr. Zaida Gaston Work Phone: [facility] Work Phone: 03-24-2022 03:12-0400 SaO2% (BldA) [Mass fraction] 92 % Dr. Zaida Gaston Work Phone: [facility] Work Phone: 03-24-2022 03:12-0400 Systolic blood pressure 144 mm[Hg] Dr. Zaida Gaston Work Phone: [facility] Work Phone: 03-24-2022 01:02-0400 Body height 172.[address] Zaida Gaston Work Phone: [facility] Work Phone: 03-24-2022 01:02-0400 Body mass index (BMI) [Ratio] 36.1 kg/m2 Dr. Zaida Gaston Work Phone: [facility] Work Phone: 03-24-2022 01:02-0400 Body weight 107.[address] Zaida Gaston Work Phone: [facility] Work Phone: 03-13-2022 10:06-0400 Body mass index (BMI) [Ratio] 34.2 kg/m2 Dr. Zaida Gaston Work Phone: [facility] Work Phone: 03-13-2022 10:06-0400 Body temperature 98.2 [degF] Dr. Zaida Gaston Work Phone: [facility] Work Phone: 03-13-2022 10:06-0400 Diastolic blood pressure 77 mm[Hg] Dr. Zaida Gaston Work Phone: [facility] Work Phone: 03-13-2022 10:06-0400 Heart rate 89 /min Dr. Zaida Gaston Work Phone: [facility] Work Phone: 03-13-2022 10:06-0400 Respiratory rate 16 /min Dr. Zaida Gaston Work Phone: [facility] Work Phone: 03-13-2022 10:06-0400 Systolic blood pressure 137 mm[Hg] Dr. Zaida Gaston Work Phone: [facility] Work Phone: 03-09-2022 00:36-0400 Body weight 102.[address] Zaida Gaston Work Phone: [facility] Work Phone: 03-08-2022 14:11-0400 Body height 172.7 cm [facility] Work Phone: [facility] 03-08-2022 14:11-0400 Body temperature 97.59 [degF] [facility] Work Phone: [facility] 03-08-2022 14:11-0400 Body weight 99.16 kg [facility] Work Phone: [facility] 03-08-2022 14:11-0400 Diastolic blood pressure 72 mm[Hg] [facility] Work Phone: [facility] 03-08-2022 14:11-0400 Heart rate 88 /min [facility] Work Phone: [facility] 03-08-2022 14:11-0400 SaO2% (BldA) [Mass fraction] 100 % [facility] Work Phone: [facility] 03-08-2022 14:11-0400 Systolic blood pressure 145 mm[Hg] [facility] Work Phone: [facility] 03-06-2022 10:13-0400 Body mass index (BMI) [Ratio] 34.2 kg/m2 Dr. Zaida Gaston Work Phone: [facility] Work Phone: 03-06-2022 10:13-0400 Body temperature 96.9 [degF] Dr. Zaida Gaston Work Phone: [facility] Work Phone: 03-06-2022 10:13-0400 Diastolic blood pressure 83 mm[Hg] Dr. Zaida Gaston Work Phone: [facility] Work Phone: 03-06-2022 10:13-0400 Heart rate 83 /min Dr. Zaida Gaston Work Phone: [facility] Work Phone: 03-06-2022 10:13-0400 Systolic blood pressure 138 mm[Hg] Dr. Zaida Gaston Work Phone: [facility] Work Phone: 02-07-2022 01:03-0400 Body weight 102.[address] Zaida Gaston Work Phone: [facility] Work Phone: 02-07-2022 01:03-0400 Respiratory rate 16 /min Dr. Zaida Gaston Work Phone: [facility] Work Phone: 02-06-2022 10:03-0400 Body mass index (BMI) [Ratio] 34.2 kg/m2 Dr. Zaida Gaston Work Phone: [facility] Work Phone: 02-06-2022 10:03-0400 Body temperature 97.8 [degF] Dr. Zaida Gaston Work Phone: [facility] Work Phone: 02-06-2022 10:03-0400 Diastolic blood pressure 81 mm[Hg] Dr. Zaida Gaston Work Phone: [facility] Work Phone: 02-06-2022 10:03-0400 Heart rate 87 /min Dr. Zaida Gaston Work Phone: [facility] Work Phone: 02-06-2022 10:03-0400 Respiratory rate 16 /min Dr. Zaida Gaston Work Phone: [facility] Work Phone: 02-06-2022 10:03-0400 Systolic blood pressure 152 mm[Hg] Dr. Zaida Gaston Work Phone: [facility] Work Phone: 01-19-2022 10:41-0400 Body height 172.[address] Zaida Gaston Work Phone: [facility] Work Phone: 01-19-2022 10:41-0400 Body mass index (BMI) [Ratio] 33.8 kg/m2 Dr. Zaida Gaston Work Phone: [facility] Work Phone: 01-19-2022 10:41-0400 Body weight 100.[address] Zaida Gaston Work Phone: [facility] Work Phone: 01-19-2022 10:41-0400 Diastolic blood pressure 68 mm[Hg] Dr. Zaida Gaston Work Phone: [facility] Work Phone: 01-19-2022 10:41-0400 Heart rate 96 /min Dr. Zaida Gaston Work Phone: [facility] Work Phone: 01-19-2022 10:41-0400 Respiratory rate 16 /min Dr. Zaida Gaston Work Phone: [facility] Work Phone: 01-19-2022 10:41-0400 Systolic blood pressure 152 mm[Hg] Dr. Zaida Gaston Work Phone: [facility] Work Phone: 01-19-2022 10:41-0400 Body height 172.[address] Zaida Gaston Work Phone: [facility] Work Phone: 01-19-2022 10:41-0400 Body mass index (BMI) [Ratio] 33.8 kg/m2 Dr. Zaida Gaston Work Phone: [facility] Work Phone: 01-19-2022 10:41-0400 Body weight 100.[address] Zaida Gaston Work Phone: [facility] Work Phone: 01-19-2022 10:41-0400 Diastolic blood pressure 68 mm[Hg] Dr. Zaida Gaston Work Phone: [facility] Work Phone: 01-19-2022 10:41-0400 Heart rate 96 /min Dr. Zaida Gaston Work Phone: [facility] Work Phone: 01-19-2022 10:41-0400 Respiratory rate 16 /min Dr. Zaida Gaston Work Phone: [facility] Work Phone: 01-19-2022 10:41-0400 Systolic blood pressure 152 mm[Hg] Dr. Zaida Gaston Work Phone: [facility] Work Phone: 01-16-2022 09:46-0400 Body mass index (BMI) [Ratio] 34.2 kg/m2 Dr. Zaida Gaston Work Phone: [facility] Work Phone: 01-16-2022 09:46-0400 Body temperature 98.2 [degF] Dr. Zaida Gaston Work Phone: [facility] Work Phone: 01-16-2022 09:46-0400 Diastolic blood pressure 77 mm[Hg] Dr. Zaida Gaston Work Phone: [facility] Work Phone: 01-16-2022 09:46-0400 Heart rate 114 /min Dr. Zaida Gaston Work Phone: [facility] Work Phone: 01-16-2022 09:46-0400 Respiratory rate 16 /min Dr. Zaida Gaston Work Phone: [facility] Work Phone: 01-16-2022 09:46-0400 Systolic blood pressure 153 mm[Hg] Dr. Zaida Gaston Work Phone: [facility] Work Phone: 01-07-2022 00:44-0400 Body weight 102.[address] Zaida Gaston Work Phone: [facility] Work Phone: 01-02-2022 09:59-0400 Body mass index (BMI) [Ratio] 34.2 kg/m2 Dr. Zaida Gaston Work Phone: [facility] Work Phone: 12-26-2021 09:01-0400 Body height 172.[address] Zaida Gaston Work Phone: [facility] Work Phone: 12-26-2021 09:01-0400 Body temperature 96.8 [degF] Dr. Zaida Gaston Work Phone: [facility] Work Phone: 12-26-2021 09:01-0400 Body weight 102.[address] Zaida Gaston Work Phone: [facility] Work Phone: 12-26-2021 09:01-0400 Diastolic blood pressure 69 mm[Hg] Dr. Zaida Gaston Work Phone: [facility] Work Phone: 12-26-2021 09:01-0400 Heart rate 87 /min Dr. Zaida Gaston Work Phone: [facility] Work Phone: 12-26-2021 09:01-0400 Respiratory rate 18 /min Dr. Zaida Gaston Work Phone: [facility] Work Phone: 12-26-2021 09:01-0400 Systolic blood pressure 153 mm[Hg] Dr. Zaida Gaston Work Phone: [facility] Work Phone: 12-08-2021 11:57-0400 Body height 172.7 cm [facility] Work Phone: [facility] 12-08-2021 11:57-0400 Body temperature 99.19 [degF] [facility] Work Phone: [facility] 12-08-2021 11:57-0400 Body weight 99.79 kg [facility] Work Phone: [facility] 12-08-2021 11:57-0400 Diastolic blood pressure 81 mm[Hg] [facility] Work Phone: [facility] 12-08-2021 11:57-0400 Heart rate 84 /min [facility] Work Phone: [facility] 12-08-2021 11:57-0400 SaO2% (BldA) [Mass fraction] 97 % [facility] Work Phone: [facility] 12-08-2021 11:57-0400 Systolic blood pressure 150 mm[Hg] [facility] Work Phone: [facility] 09-20-2021 13:54-0500 Body temperature 97.3 [degF] Dr. Zaida Gaston Work Phone: [facility] Work Phone: 09-20-2021 13:54-0500 Diastolic blood pressure 58 mm[Hg] Dr. Zaida Gaston Work Phone: [facility] Work Phone: 09-20-2021 13:54-0500 Heart rate 77 /min Dr. Zaida Gaston Work Phone: [facility] Work Phone: 09-20-2021 13:54-0500 Respiratory rate 18 /min Dr. Zaida Gaston Work Phone: [facility] Work Phone: 09-20-2021 13:54-0500 SaO2% (BldA) [Mass fraction] 93 % Dr. Zaida Gaston Work Phone: [facility] Work Phone: 09-20-2021 13:54-0500 Systolic blood pressure 113 mm[Hg] Dr. Zaida Gaston Work Phone: [facility] Work Phone: 09-18-2021 09:55-0500 Body height 172.[address] Zaida Gaston Work Phone: [facility] Work Phone: 09-18-2021 09:55-0500 Body weight 91.[address] Zaida Gaston Work Phone: [facility] Work Phone: 09-17-2021 22:38-0500 Body mass index (BMI) [Ratio] 30.8 kg/m2 Dr. Zaida Gaston Work Phone: [facility] Work Phone: 09-14-2021 12:15-0500 Heart rate 88 /min Dr. Zaida Gaston Work Phone: [facility] Work Phone: 09-14-2021 12:15-0500 Respiratory rate 17 /min Dr. Zaida Gaston Work Phone: [facility] Work Phone: 09-14-2021 12:15-0500 SaO2% (BldA) [Mass fraction] 96 % Dr. Zaida Gaston Work Phone: [facility] Work Phone: 09-14-2021 07:11-0500 Body mass index (BMI) [Ratio] 33.2 kg/m2 Dr. Zaida Gaston Work Phone: [facility] Work Phone: 09-14-2021 07:11-0500 Body temperature 97 [degF] Dr. Zaida Gaston Work Phone: [facility] Work Phone: 09-14-2021 07:11-0500 Body weight [address] Zaida Gaston Work Phone: [facility] Work Phone: 09-14-2021 07:11-0500 Diastolic blood pressure 66 mm[Hg] Dr. Zaida Gaston Work Phone: [facility] Work Phone: 09-14-2021 07:11-0500 Systolic blood pressure 117 mm[Hg] Dr. Zaida Gasotn Work Phone: [facility] Work Phone: Encounters Encounter Date Encounter Type Care Provider Facility Start: 03-15-2025 End: 03-15-2025 Telephone encounter 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 APRN.CNP Work Phone: [facility] [place] Comment on above: Medication Problem Follow Up Start: 03-10-2025 End: 03-10-2025 Emergency department patient visit Dr. Zaida Gaston MD Work Phone: -Emergency Department Work Phone: Start: 03-08-2025 End: 03-08-2025 Telephone encounter Verna Jensen [facility] Work Phone: [facility] Comment on above: Diabetes Start: 03-08-2025 End: 03-08-2025 ambulatory ZAIDA GASTON Facility:[facility] Start: 03-08-2025 End: 03-08-2025 Patient encounter procedure Verna Jensen [facility] Work Phone: [facility] Comment on above: Type 1 diabetes aggie itus on insulin therapy (HCC) (Primary Dx); Medication management Start: 03-08-2025 End: 03-08-2025 Telemedicine consultation with patient Verna Jensen [facility] Work Phone: [facility] Start: 02-25-2025 End: 02-25-2025 Telephone encounter Xiang Deutsch RN Angio Comment on above: IR Outpatient Tube A ppointment Request Start: 02-25-2025 End: 02-25-2025 ambulatory [facility] Facility:[facility] Start: 02-15-2025 End: 02-15-2025 Telephone encounter Verna Jensen [facility] Work Phone: [facility] Comment on above: Missed Appointment ( Primary care reschedule) Start: 02-11-2025 End: 02-11-2025 Refill Chyna Conroy PA-C Work Phone: Transplant Center Comment on above: Refill Request Start: 02-09-2025 End: 02-09-2025 Telephone encounter Kerry Oscar RN NOC Start: 02-08-2025 End: 02-08-2025 Telephone encounter Amanda RUIZ Work Phone: Transplant Center Comment on above: Follow Up Start: 02-07-2025 End: 02-07-2025 Emergency department patient visit Dr. Zaida Gaston MD Work Phone: -Emergency Department Work Phone: Start: 02-05-2025 End: 02-05-2025 Telephone encounter Danni Singh RN Angio Start: 02-05-2025 End: 02-05-2025 Office outpatient visit 25 minutes Zaida Gaston MD Work Phone: Internal Medicine [place] Comment on above: Hospital discharge f ollow-up (Primary Dx); Hypertension goal BP (blood pressure) < 140/90; Kidney transplant recipient (HCC); History of kidney stones; Type 1 diabetes mellitus on insulin therapy (HCC); Hyperglycemia; Moderate episode of recurrent major depressive disorder (HCC) Start: 02-05-2025 End: 02-05-2025 ambulatory [facility] Facility:[facility] Start: 02-04-2025 End: 02-04-2025 Telephone encounter Zaida Gaston MD Work Phone: NOC Comment on above: Transition Of Care Start: 02-03-2025 End: 02-03-2025 Telephone encounter Danni Singh RN Angio Comment on above: Follow Up Start: 02-02-2025 End: 02-02-2025 Telephone encounter Bon Concepcion RN Urology Start: 01-27-2025 End: 01-29-2025 Evaluation and management of inpatient YONY SOLIS Facility:[facility] Start: 01-26-2025 End: 01-27-2025 Emergency department patient visit Dr. Zaida Gaston MD Work Phone: -Emergency Department Work Phone: Start: 01-06-2025 End: 03-08-2025 Follow-up encounter 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 APRN.CNP Work Phone: Family Medicine [place] Start: 01-01-2025 End: 01-01-2025 ambulatory [facility] Facility:[facility] Start: 12-30-2024 End: 12-30-2024 ambulatory DELIA KAUFMAN Facility:[facility] Start: 12-03-2024 ambulatory [facility] Start: 11-19-2024 End: 11-19-2024 Emergency department patient visit Dr. Zaida Gaston MD Work Phone: -Emergency Department Work Phone: Start: 11-11-2024 ambulatory Yissel Willis Facility: [facility] Start: 09-28-2024 End: 09-28-2024 Office outpatient visit 25 minutes Zaida Gaston MD Work Phone: Internal Medicine [place] Comment on above: Hypertension goal BP (blood pressure) < 140/90 (Primary Dx); Type 1 diabetes mellitus on insulin therapy (HCC); Moderate episode of recurrent major depressive disorder (HCC); Vitamin D deficiency; Gastroesophageal reflux disease without esophagitis Start: 09-28-2024 End: 09-28-2024 ambulatory ZAIDA GASTON Facility:[facility] Start: 09-28-2024 End: 09-28-2024 Refill Alana Hedervary BARREL DRAINER.WORKFORCE DEVELOPMENT SPECIALIST Work Phone: Transplant Center Comment on above: Refill Request Start: 09-08-2024 End: 09-15-2024 ambulatory Matty Lewis MA [facility] Start: 09-08-2024 End: 09-15-2024 Patient encounter procedure Matty Lewis MA [facility] Comment on above: Population Health Na vigation Outreach ([facility] ) Start: 07-31-2024 End: 07-31-2024 Refill Zaida Gaston MD Work Phone: Internal Medicine [place] Comment on above: Refill Request Start: 07-28-2024 End: 07-28-2024 Refill Alana Hedervary BARREL DRAINER.WORKFORCE DEVELOPMENT SPECIALIST Work Phone: Transplant Center Comment on above: Refill Request Start: 07-28-2024 End: 07-28-[address] Steve Durand MD [facility] Work Phone: Start: 07-28-2024 End: 07-28-2024 Refill Chyna Conroy PA-C Work Phone: Transplant Center Start: 07-13-2024 End: 07-13-2024 ambulatory Matty Lewis MA [facility] Comment on above: Stomach Medication Start: 07-13-2024 End: 07-13-2024 Patient encounter procedure Matty Lewis MA [facility] Comment on above: Population Health Na vigation Outreach ([facility]) Refill Request Start: 06-23-2024 End: 06-23-2024 Telephone encounter Amanda RUIZ Work Phone: Transplant Center Comment on above: Follow Up Start: 06-18-2024 End: 06-18-2024 Telephone encounter Amanda RUIZ Work Phone: Transplant Center Comment on above: Follow Up Start: 06-18-2024 End: 06-18-2024 ambulatory [facility] Facility:[facility] Start: 06-18-2024 End: 06-18-2024 Office outpatient visit 25 minutes Zaida Gaston MD Work Phone: Internal Medicine [place] Comment on above: Type 1 diabetes aggie itus on insulin therapy (HCC) (Primary Dx); Encounter for immunization; Hypertension goal BP (blood pressure) < 140/90; Other hyperlipidemia; Stage 3a chronic kidney disease (HCC) Start: 06-16-2024 End: 06-18-2024 Telephone encounter Alana Kent APRN.WORKFORCE DEVELOPMENT SPECIALIST Work Phone: Transplant Center Comment on above: Medication Problem Start: 06-03-2024 End: 06-03-2024 ambulatory Verna [facility] Work Phone: [facility] Start: 06-03-2024 End: 06-03-2024 Patient encounter procedure Verna [facility] Work Phone: [facility] Start: 05-14-2024 End: 05-27-2024 Telephone encounter Zaida Gaston MD Work Phone: Family [facility] Comment on above: Patient Update; Requ est for new Dexcom Start: 04-30-2024 End: 04-30-2024 ambulatory [facility] Start: 04-01-2024 Telephone encounter Lali Ramires MD Work Phone: General Surgery Comment on above: Medication Problem Start: 04-01-2024 ambulatory AMARA Au ty:[facility] Start: 04-01-2024 End: 04-01-2024 Subsequent hospital visit by physician Lali Raman MD Work Phone: [facility] Endoscopy Comment on above: Diarrhea, unspecifie d type [R19.7] Start: 03-24-2024 End: 03-24-2024 Patient encounter procedure Nia James APRN.WORKFORCE DEVELOPMENT SPECIALIST Work Phone: General Surgery Comment on above: Diarrhea, unspecifie d type (Primary Dx); Gastroesophageal reflux disease without esophagitis; FH: colon cancer in first degree relative <60 years old Start: 03-24-2024 End: 03-24-2024 ambulatory Nia James Facility:[facility] Start: 03-18-2024 End: 03-18-2024 Patient encounter procedure 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 APRN.WORKFORCE DEVELOPMENT SPECIALIST Work Phone: Internal Medicine [place] Comment on above: Moderate episode of recurrent major depressive disorder (HCC) (Primary Dx) Start: 03-18-2024 End: 03-18-2024 ambulatory DELIA KAUFMAN Facility:[facility] Start: 02-26-2024 Telephone encounter Zaida blanton MD Work Phone: Internal Medicine [place] Comment on above: Fax Request Start: 01-22-2024 End: 01-22-2024 Patient encounter procedure 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 APRN.WORKFORCE DEVELOPMENT SPECIALIST Work Phone: Internal Medicine [place] Comment on above: Type 1 diabetes aggie itus on insulin therapy (HCC) (Primary Dx); Moderate episode of recurrent major depressive disorder (HCC); Hypertension goal BP (blood pressure) < 140/90; Kidney transplant recipient; Stage 3a chronic kidney disease (HCC); 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 Zaida Gaston Work Phone: [facility] Work Phone: Start: 01-14-2024 End: 01-14-[address] Zaida Gaston Work Phone: [facility] Work Phone: Start: 01-13-2024 End: 01-13-2024 Patient encounter procedure [facility] Work Phone: Transplant Center Comment on above: Kidney replaced by t ransplant (Primary Dx) Start: 01-03-2024 End: 01-03-[address] Zaida Gaston Work Phone: [facility] Work Phone: Start: 01-03-2024 End: 01-03-[address] Zaida Gaston Work Phone: [facility]Laboratory Work Phone: Start: 01-02-2024 End: 01-02-[address] Zaida Gaston Work Phone: [facility] Endocr[facility]ology Work Phone: Start: 12-13-2023 Refill Xiang ROCHA-C Work Phone: Internal Medicine [place] Comment on above: Refill Request Start: 11-27-2023 Refill Conchis Sheets RN [facility] Comment on above: Rx Refills (TAC leve l 2.8/) Start: 11-26-2023 End: 11-26-2023 Patient encounter procedure Xiang ROCHA-C Work Phone: Internal Medicine [place] Comment on above: Diarrhea, unspecifie d type (Primary Dx); Mixed hyperlipidemia; Kidney transplant recipient; Diabetic polyneuropathy associated with type 2 diabetes mellitus (HCC) Start: 11-25-2023 ambulatory Zaida Hannah Work Phone: Internal Medicine [place] Comment on above: Diarrhea Start: 11-11-2023 End: 11-11-[address] Zaida Gaston Work Phone: [facility] Work Phone: Start: 10-30-2023 Telephone encounter Zaida blanton MD Work Phone: Internal Medicine [place] Comment on above: Orders Start: 10-29-2023 Refill Oscar Mas PA-C Work Phone: Urology Comment on above: Refill Request Start: 10-24-2023 End: 10-24-[address] Zaida Gaston Work Phone: [facility] Endocrinology Work Phone: Start: 10-14-2023 Refill Zaida Hannah Work Phone: Internal Medicine [place] Comment on above: Refill Request Start: 10-11-2023 Refill Zaida Hannah Work Phone: Internal Medicine [place] Comment on above: Refill Request Start: 10-10-2023 ambulatory Delia ArangoWORKFORCE DEVELOPMENT SPECIALIST Work Phone: Internal Medicine [place] Comment on above: Bupropion Start: 09-18-2023 End: 09-18-2023 Patient encounter procedure 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 APRN.WORKFORCE DEVELOPMENT SPECIALIST Work Phone: Internal Medicine [place] Comment on above: Type 1 diabetes aggie itus on insulin therapy (HCC) (Primary Dx); Kidney transplant recipient; Hypertension goal BP (blood pressure) < 140/90; Moderate episode of recurrent major depressive disorder (HCC); LUANNE (obstructive sleep apnea) Start: 08-27-2023 Telephone encounter Zaida blanton MD Work Phone: [facility] [place] Comment on above: CGM forms Start: 08-22-2023 ambulatory Oscar ROCHA-C Work Phone: Urology Comment on above: Questions Start: 08-20-2023 End: 08-20-2023 Patient encounter procedure Oscar ROCHA-C Work Phone: Urology Comment on above: Impotence of organic origin (Primary Dx) Start: 08-13-2023 End: 08-13-2023 Patient encounter procedure Oscar ROCHA-C Work Phone: Urology Comment on above: Impotence Start: 07-31-2023 Orders Only Lashae Perry RN [facility] Comment on above: Kidney replaced by t ransplant (Primary Dx) Start: 07-25-2023 Orders Only Conchis Sheets RN [facility] Comment on above: Kidney replaced by t ransplant (Primary Dx); High risk medication use; Vitamin D deficiency Start: 07-20-2023 Telephone encounter Lashae Wareshae Nguyen [facility] Start: 07-15-2023 End: 07-15-2023 Patient encounter procedure [facility] Work Phone: Transplant Center Comment on above: Kidney replaced by t ransplant (Primary Dx); Vitamin D deficiency; Erectile dysfunction, unspecified erectile dysfunction type; Immunosuppressive management encounter following kidney transplant; PTE (post-transplant erythrocytosis) Start: 07-13-2023 End: 07-13-2023 ambulatory [facility] [place] Work Phone: Family Medicine [place] Comment on above: Arrived Start: 07-01-2023 Refill Zaida Hannah Work Phone: Internal Medicine [place] Comment on above: Refill Request (st ging to new pharmacy) Start: 05-21-2023 End: 05-21-2023 Patient encounter procedure Xiang Perez PA-C Work Phone: Internal Medicine [place] Comment on above: Diabetic polyneuropa thy associated with type 2 diabetes mellitus (HCC) (Primary Dx); Moderate episode of recurrent major depressive disorder (HCC); Kidney transplant recipient; Elevated alkaline phosphatase level; Erectile dysfunction, unspecified erectile dysfunction type; Mixed hyperlipidemia Start: 04-09-2023 End: 04-09-2023 Patient encounter procedure [facility] Work Phone: Vasculary Surgery Comment on above: Pain of right lower extremity Start: 04-03-2023 Refill Zaida Hannah Work Phone: Family Medicine [place] Comment on above: Refill Request Start: 03-20-2023 Refill Chelsea Ryan MD Work Phone: Transplant Center Comment on above: Refill Request Start: 03-14-2023 Orders Only Lg brown MD Work Phone: Transplant Center Comment on above: Encounter for afterc are following kidney transplant (Primary Dx) Start: 03-13-2023 End: 03-14-2023 Emergency department patient visit Dr. Zaida Gaston Work Phone: [facility]Emergency Department Work Phone: Start: 02-25-2023 End: 02-25-2023 Patient encounter procedure Zaida Gaston MD Work Phone: Internal Medicine [place] Comment on above: Hypertension goal BP (blood pressure) < 140/90 (Primary Dx); Other hyperlipidemia; Type 1 diabetes mellitus on insulin therapy (HCC); Moderate episode of recurrent major depressive disorder (HCC); Diarrhea, unspecified type; Pain of right lower extremity; Left leg claudication ([facility]); Viral wart on finger Start: 02-21-2023 End: 02-21-[address] Zaida Gaston Work Phone: [facility] [facility] Work Phone: Start: 01-17-2023 Orders Only Rosi Casillas RN Trans plant Center Comment on above: Kidney replaced by t ransplant (Primary Dx) Start: 01-16-2023 Telephone encounter Danni Nguyen Urology Comment on above: Preparations For Pro cedures Start: 01-14-2023 End: 01-14-[address] Zaida Gaston Work Phone: [facility] Endocrinology Start: 01-11-2023 End: 01-11-[address] Zaida Gaston Work Phone: [facility] Work Phone: Start: 01-11-2023 End: 01-11-[address] Zaida Gaston Work Phone: [facility]-Laboratory Start: 01-02-2023 Telephone encounter Juvencio Haji RN [facility] Comment on above: Results Start: 12-31-2022 End: 12-31-2022 Patient encounter procedure [facility] Work Phone: Transplant Center Comment on above: Kidney replaced by t ransplant (Primary Dx); Encounter for aftercare following kidney transplant; Immunosuppressive management encounter following kidney transplant; ILDA (acute kidney injury) (HCC) Start: 11-23-2022 End: 11-23-2022 Patient encounter procedure Zaida Gaston MD Work Phone: Internal Medicine [place] Comment on above: Moderate episode of recurrent major depressive disorder (HCC) (Primary Dx); 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 Shai Gaston Work Phone: [facility] Inpatient Physicians Start: 11-03-2022 Non-patient / Non-visit Dr. Shai Gaston Work Phone: [facility] Inpatient Physicians Start: 11-02-2022 Non-patient / Non-visit Dr. Shai Gaston Work Phone: [facility] Inpatient Physicians Start: 11-01-2022 End: 11-01-2022 Non-patient / Non-visit Dr. Zaida Gaston Work Phone: [facility] Inpatient Physicians Start: 11-01-2022 End: 11-05-2022 Evaluation and management of inpatient Dr. Zaida Gaston Work Phone: [facility]-Medical Surgical 3 Start: 11-01-2022 Admission to [facility] Dr[facility] Zaida Gaston Work Phone: [facility]-Convention Services Director Start: 11-01-[address] Zaida blanton Work Phone: [facility] Work Phone: Start: 11-01-2022 End: 11-06-[address] Zaida Gaston Work Phone: [facility] Start: 11-01-[address] William Gaston Work Phone: [facility] Start: 10-18-2022 End: 10-18-[address] Zaida Gaston Work Phone: [facility] Endocrinology Start: 10-15-2022 ambulatory Verna [facility] Work Phone: [facility] Comment on above: A1c Start: 10-15-2022 E-mail encounter fro m caregiver Verna Jensen [facility] Work Phone: [facility] Start: 10-04-2022 End: 10-04-2022 Patient encounter procedure Verna Jensen [facility] Work Phone: [facility] Comment on above: Type 1 diabetes aggie itus on insulin therapy (HCC) (Primary Dx) Start: 09-27-2022 End: 10-09-[address] Zaida Gaston Work Phone: [facility] Work Phone: Start: 09-27-2022 End: 10-09-[address] Zaida Gaston Work Phone: [facility] Start: 09-24-2022 End: 09-24-2022 Patient encounter procedure Felicitavalarie Cameron [facility] Work Phone: Endocrinology Comment on above: Type 1 diabetes aggie itus on insulin therapy (HCC) (Primary Dx) Kidney replaced by t ransplant (Primary Dx); Immunosuppressive management encounter following kidney transplant; Mixed hyperlipidemia Start: 09-11-2022 Non-patient / Non-visit Dr. Shai Gaston Work Phone: [facility] Start: 09-06-2022 End: 09-08-[address] Zaida Gaston Work Phone: [facility] Work Phone: Start: 09-06-2022 End: 09-08-[address] [facility]aston [facility] Start: 09-06-2022 End: 09-06-[address] Zaida Gaston Work Phone: [facility] Endocrinology Start: 09-05-2022 Non-patient / Non-visit Dr. Shai Gaston Work Phone: [facility] Start: 08-29-2022 Non-patient / Non-visit Dr. Shai Gaston Work Phone: [facility] Start: 08-28-2022 End: 08-28-2022 Emergency department patient visit Dr. Zaida Gaston Work Phone: [facility]Emergency Department Start: 08-28-2022 Non-patient / Non-visit Dr. Shai Gaston Work Phone: [facility] Start: 08-28-[address] William Gaston [facility] Start: 08-27-2022 Non-patient / Non-visit Dr. 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); Type 1 diabetes mellitus on insulin therapy (HCC); Moderate episode of recurrent major depressive disorder (HCC) Start: 08-23-2022 End: 08-23-2022 Patient encounter procedure Verna Jensen [facility] Work Phone: [facility] Comment on above: Type 1 diabetes aggie itus on insulin therapy (HCC) (Primary Dx); Medication management Start: 08-23-2022 Telephone encounter Verna ramirez [facility] Work Phone: [facility] Comment on above: Forms (CGM order) Start: 08-20-2022 Telephone encounter Zaida blanton MD Work Phone: Internal Medicine [place] Comment on above: Patient Update Start: 08-20-2022 Non-patient / Non-visit Dr. Shai Gaston Work Phone: [facility] Start: 08-17-2022 End: 08-17-[address] Zaida Gaston Work Phone: [facility] Group Start: 08-16-2022 Non-patient / Non-visit Dr. Shai Gaston Work Phone: [facility] Start: 08-15-2022 Non-patient / Non-visit Dr. Shai Gaston Work Phone: [facility] Start: 08-09-2022 Non-patient / Non-visit Dr. Shai Gaston Work Phone: [facility] Start: 08-08-2022 Non-patient / Non-visit Dr. Shai Gaston Work Phone: [facility] Start: 08-08-2022 End: 08-08-[address] [facility]aston [facility] Start: 08-07-2022 Telephone encounter Zaida blanton MD Work Phone: Internal Medicine [place] Comment on above: Release Of Medical R ecords Start: 08-07-2022 Non-patient / Non-visit Dr. Shai Gaston Work Phone: [facility] Start: 08-06-2022 Non-patient / Non-visit Dr. Shai Gaston Work Phone: [facility] Start: 08-06-2022 Telephone encounter Zaida blanton MD Work Phone: [facility] [place] Comment on above: [facility] requesting lab results Start: 08-03-2022 End: 08-03-2022 Patient encounter procedure [facility] Work Phone: [facility] Center Comment on above: Kidney replaced by t ransplant (Primary Dx); Encounter for aftercare following kidney transplant; Immunosuppressive management encounter following kidney transplant; Essential hypertension Start: 08-01-2022 Non-patient / Non-visit Dr. Shai Gaston Work Phone: [facility] Start: 07-31-2022 ambulatory Zaida Hannah Work Phone: [facility] Medicine [place] Comment on above: Would like to see an Load Mixer Start: 07-31-2022 Non-patient / Non-visit Dr. Shai Gaston Work Phone: [facility] Start: 07-30-2022 Non-patient / Non-visit Dr. Shai Gaston Work Phone: [facility] Start: 07-26-2022 Non-patient / Non-visit Dr. Shai Gaston Work Phone: [facility] Start: 07-25-2022 Non-patient / Non-visit Dr. Shai Gaston Work Phone: [facility] Start: 07-23-2022 Non-patient / Non-visit Dr. Shai Gaston Work Phone: [facility] Start: 07-19-2022 Refill Zaida Hannah Work Phone: [facility] Medicine [place] Comment on above: Refill Request Start: 07-19-2022 Non-patient / Non-visit Dr. Shai Gaston Work Phone: [facility] Start: 07-18-2022 Non-patient / Non-visit Dr. Shai Gaston Work Phone: [facility] Start: 07-16-2022 Non-patient / Non-visit Dr. Shai Gaston Work Phone: [facility] Start: 07-13-2022 End: 07-13-2022 Patient encounter procedure Zaida Gaston MD Work Phone: Internal Medicine [place] Comment on above: Controlled type 2 di abetes mellitus without complication, without long-term current use of insulin (HCC) (Primary Dx); Uncontrolled hypertension; Need for influenza vaccination Start: 07-09-2022 Non-patient / Non-visit Dr. Shai Gaston Work Phone: [facility] Start: 07-09-2022 End: 07-09-[address] Zaida [facility]aston [facility] Start: 07-05-2022 End: 07-05-2022 Patient encounter procedure [facility] Work Phone: Transplant Center Comment on above: Encounter for afterc are following kidney transplant (Primary Dx); Kidney replaced by transplant; Immunosuppressive management encounter following kidney transplant; Essential hypertension; Transaminitis Start: 06-26-2022 Non-patient / Non-visit Dr. Shai Gaston Work Phone: [facility] Start: 06-08-2022 End: 06-08-2022 Patient encounter procedure [facility] Work Phone: Transplant Center Comment on above: Kidney replaced by t ransplant (Primary Dx) Start: 06-07-2022 End: 06-08-[address] Zaida Gaston Work Phone: [facility] Work Phone: Start: 06-07-2022 End: 06-08-[address] Zaida Gaston [facility] Start: 05-31-2022 End: 05-31-[address] Zaida Gaston [facility] Start: 05-31-2022 Non-patient / Non-visit Dr. Shai Gaston Work Phone: [facility] Start: 05-13-2022 Refill Dale MICHAELS.WORKFORCE DEVELOPMENT SPECIALIST Work Phone: Endocrinology Comment on above: Refill Request Start: 05-12-2022 Refill Dale GUADALUPEN.WORKFORCE DEVELOPMENT SPECIALIST Work Phone: Endocrinology Comment on above: Refill Request Start: 05-09-2022 End: 05-09-[address] Zaida Gaston Work Phone: [facility] Work Phone: Start: 05-09-2022 End: 05-09-[address] Zaida Gaston [facility] Start: 04-30-2022 End: 05-09-[address] Zaida Gaston Work Phone: [facility] Work Phone: Start: 04-30-2022 End: 05-09-[address] Zaida Gaston Work Phone: [facility]Labor[facility], Specimen Start: 04-30-[address] William Gaston Work Phone: [facility], Specimen Start: 04-25-2022 Refill Zaida Hannah Work Phone: [facility] Comment on above: Refill Request Start: 04-12-[address] 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 William Gaston Work Phone: [facility], Specimen Start: 04-05-2022 End: 04-05-[address] Zaida Gaston Work Phone: [facility], Specimen Start: 04-05-2022 Refill [facility] Comment on above: Rx Refills Start: 04-05-2022 End: 04-08-[address] Zaida Gaston Work Phone: [facility] Start: 04-05-[address] William Gaston Work Phone: [facility] Start: 04-02-2022 End: 04-07-[address] Zaida Gaston [facility] Start: 03-28-2022 Orders Only Alana deluca APRN.CNP Work Phone: Transplant Center Comment on above: Kidney replaced by t ransplant (Primary Dx) Start: 03-28-2022 Non-patient / Non-visit Dr. Shai Gaston Work Phone: [facility] Inpatient Physicians Start: 03-27-2022 Telephone encounter Zaida blanton MD Work Phone: [facility] [place] Comment on above: Home Health Orders Start: 03-27-2022 Non-patient / Non-visit Dr. Shai Gaston Work Phone: [facility] Inpatient Physicians Start: 03-26-2022 Non-patient / Non-visit Dr. Shai Gaston Work Phone: [facility] Inpatient Physicians Start: 03-25-2022 Non-patient / Non-visit Dr. Shai Gaston Work Phone: [facility] Inpatient Physicians Start: 03-24-2022 Non-patient / Non-visit Dr. Shai Gaston Work Phone: [facility] Start: 03-24-2022 End: 03-28-2022 Evaluation and management of inpatient Dr. Zaida Gaston Work Phone: [facility] Start: 03-13-[address] William Gaston [facility] Start: 03-08-2022 End: 03-08-2022 Patient encounter procedure [facility] Work Phone: Transplant Center Comment on above: Kidney replaced by t ransplant (Primary Dx); Encounter for aftercare following kidney transplant; Post-transplant erythrocytosis; Immunosuppressive management encounter following kidney transplant Start: 03-06-2022 End: 03-08-[address] Zaida Gaston Work Phone: [facility] Start: 03-02-2022 Telephone encounter Conner Molina (Pcn a) [facility] Comment on above: Electronic Communica tion Start: 02-14-2022 Refill Juvencio Haji RN [facility] Comment on above: Refill Request; Medi cation Dosage Adjustment (High Envarsus 14.2) Start: 02-06-2022 End: 02-06-[address] Zaida Gaston Work Phone: [facility] Start: 01-19-2022 End: 01-19-[address] Zaida Gaston Work Phone: [facility] Start: 01-08-2022 Refill Solomon ramirez MD Work Phone: Transplant Center Comment on above: Refill Request Start: 01-02-2022 End: 01-06-[address] Zaida Gaston Work Phone: [facility] Start: 12-26-2021 Chart abstracting Kathy Scott Coordinator [facility] Comment on above: Research (IRB# [id number]) Start: 12-20-2021 Orders Only Kathy smallsearch Coordinator [facility] Comment on above: Research subject (Pr imary Dx) Start: 12-20-2021 Patient entered into trial Kathy Scott Coordinator [facility] Start: 12-08-2021 End: 12-08-2021 Patient encounter procedure [facility] Work Phone: Transplant Center Comment on above: S/P kidney transplan t (Primary Dx); Immunosuppressive management encounter following kidney transplant Start: 12-04-2021 End: 12-04-[address] Zaida Gaston Work Phone: [facility] Start: 09-20-2021 Non-patient / Non-visit Dr. Shai Gaston Work Phone: [facility] Inpatient Physicians Start: 09-19-2021 Non-patient / Non-visit Dr. Shai Gaston Work Phone: [facility] Inpatient Physicians Start: 09-18-2021 Non-patient / Non-visit Dr. Shai Gaston Work Phone: [facility] Inpatient Physicians Start: 09-17-2021 Non-patient / Non-visit Dr. Shai Gaston Work Phone: [facility] Inpatient Physicians Start: 09-17-2021 End: 09-20-2021 Evaluation and management of inpatient Dr. Zaida Gaston Work Phone: [facility] 3 Start: 09-14-2021 End: 09-14-2021 Emergency department patient visit Dr. Zaida Gaston Work Phone: [facility]Emer[facility] Procedures Date Procedure Procedure Detail Performing Clinician Start: 03-10-[address] William Gaston MD Work Phone: Start: 03-10-2025 Urnls dip stick/tablet reagent auto microscopy Dr. Zaida Gaston MD Work Phone: Start: 03-10-2025 CT of abdomen and pelvis without contrast Dr. Zaida Gaston MD Work Phone: Start: 01-27-2025 Antibody screen YONY SOLIS Comment on above: Order Comment: Specimen Type: BLOOD SPEC IMENOrdering Facility: [facility] Address: [address] [place] [address] Performed By: #### T SCR ####CC [facility] BLOOD BANKCLOK [id number] [address] [place] Start: 01-27-[address] William Gaston MD Work Phone: Start: 01-26-2025 Urnls dip stick/tablet reagent auto microscopy Dr. Zaida Gaston MD Work Phone: Start: 01-26-2025 X-ray of chest, PA and lateral views Dr. Zaida Gaston MD Work Phone: Start: 01-26-2025 CT of abdomen and pelvis without contrast Dr. Zaida Gaston MD Work Phone: Start: 01-26-[address] Zaida Gaston MD Work Phone: Start: 11-19-2024 Urnls dip stick/tablet reagent auto microscopy Dr. Zaida Gaston MD Work Phone: Start: 11-19-[address] William Gaston MD Work Phone: Start: 11-19-[address] Zaida Gaston MD Work Phone: Start: 06-18-2024 Hemoglobin A1c/Hemoglobin.total in Blood Zaida Gaston MD Work Phone: Start: 04-01-2024 Colonoscopy flx dx w/collj spec when pfrmd Niamelba James BARREL DRAINER.WORKFORCE DEVELOPMENT SPECIALIST Work Phone: Start: 04-01-2024 Esophagogastroduodenoscopy transoral diagnostic Niamelba James BARREL DRAINER.WORKFORCE DEVELOPMENT SPECIALIST Work Phone: Start: 04-01-2024 End: 04-01-2024 Gluc bld gluc mntr dev cleared fda spec home use Amara Sloan DO Work Phone: Start: 04-01-2024 Colonoscopy Lali Raman MD Work Phone: Start: 01-14-[address] Zaida mathew Work Phone: Start: 01-13-2024 Creatinine other source Alana Hedervary BARREL DRAINER.WORKFORCE DEVELOPMENT SPECIALIST Work Phone: Start: 01-13-2024 Urnls dip stick/tablet rgnt auto w/o microscopy Alana Hedervary BARREL DRAINER.WORKFORCE DEVELOPMENT SPECIALIST Work Phone: Start: 07-15-2023 Creatinine other source Alana Hedervary BARREL DRAINER.WORKFORCE DEVELOPMENT SPECIALIST Work Phone: Start: 07-15-2023 Urnls dip stick/tablet reagent auto microscopy Alana Hedervary BARREL DRAINER.WORKFORCE DEVELOPMENT SPECIALIST Work Phone: Start: 07-13-2023 INFLUENZA VACCINE, AGE 6 MO - 64 YR, QUADRIVALENT (AFLURIA, FLULAVAL, FLUZONE) Vikash Mckee MD Work Phone: Start: 04-09-2023 Dup-scan xtr veins unilateral/limited study Zaida Gaston MD Work Phone: Start: 03-13-2023 Plain chest X-ray Dr. Zaida Gaston Work Phone: Start: 12-31-2022 Creatinine other source Chelsea Ryan MD Work Phone: Start: 12-31-2022 Urnls dip stick/tablet rgnt auto w/o microscopy Chelsea Ryan MD Work Phone: Start: 11-01-[address] Zaida Gaston Work Phone: Start: 11-01-[address] Zaida Gaston Work Phone: Start: 11-01-[address] Zaida Gaston Work Phone: Start: 11-01-2022 Plain chest X-ray Dr. Zaida Gaston Work Phone: Start: 11-01-2022 X-ray of both feet Dr. Zaida Gaston Work Phone: Start: 09-24-2022 Creatinine other source Kely Hopper MD Work Phone: Start: 09-24-2022 Urnls dip stick/tablet rgnt auto w/o microscopy Kely Hopper MD Work Phone: Start: 08-03-2022 Creatinine other source Solomon Pathak MD Work Phone: Start: 08-03-2022 Urnls dip stick/tablet rgnt auto w/o microscopy Solomon Pathak MD Work Phone: Start: 07-13-2022 Hemoglobin A1c/Hemoglobin.total in Blood Zaida Gaston MD Work Phone: Start: 07-05-2022 Creatinine other source Karl Hannah Work Phone: Start: 07-05-2022 Urnls dip stick/tablet rgnt auto w/o microscopy Karl Green MD Work Phone: Start: 06-08-2022 Creatinine other source Kely Hopper MD Work Phone: Start: 06-08-2022 Urnls dip stick/tablet rgnt auto w/o microscopy Kely Hopper MD Work Phone: Start: 05-31-2022 Plain chest X-ray Dr. Zaiad Gaston Work Phone: Start: 05-31-2022 X-ray of both feet Dr. Zaida Gaston Work Phone: Start: 03-24-[address] Zaida Gaston Work Phone: Start: 03-24-[address] Zaida Gaston Work Phone: Start: 03-24-[address] Zaida Gaston Work Phone: Start: 03-24-2022 X-ray of both feet Dr. Zaida Gaston Work Phone: Start: 03-13-2022 X-ray of both feet Dr. Zadia Gaston Work Phone: Start: 03-08-2022 Urnls dip stick/tablet rgnt auto w/o microscopy Chelsea Ryan MD Work Phone: Start: 12-08-2021 Urnls dip stick/tablet rgnt auto w/o microscopy Karl Green MD Work Phone: Start: 12-04-[address] Zaida xavier Work Phone: Start: 12-04-2021 Investigation of transfusion reaction Dr. Zaida Gaston Work Phone: Start: 12-04-2021 Microbial culture, routine Dr. Zaida mathew Work Phone: Start: 09-17-2021 Plain chest X-ray Dr. Zaida Gaston Work Phone: Start: 09-17-2021 Bacteria identified in Blood by Culture Dr. Zaida Gaston Work Phone: Start: 09-14-2021 Bacteria identified in Blood by Culture Dr. Zaida Gaston Work Phone: Start: 09-14-2021 SARS-CoV-2 Antigen (Rapid) Dr. Zaida mathew Work Phone: Start: 09-14-2021 CT angiography of chest with contrast Dr. Zaida Gaston Work Phone: Start: 09-14-2021 Plain chest X-ray Dr. Zaida Gaston Work Phone: Start: 03-09-2021 History of renal transplant Kidney transplant recipient [facility] Work Phone: Start: 12-04-2018 [facility]oscopy [facility] Work Phone: Acid fast bacilli culture Dr Nba Gaston Work Phone: Anaerobic microbial culture Dr. Zaida Gaston Work Phone: Anaerobic microbial culture Dr. Zaida Gaston Work Phone: Anaerobic microbial culture Dr. Zaida Gaston Work Phone: Anaerobic microbial culture Dr. Zaida Gaston Work Phone: Bacteria Detection (PCR) Dr. Zaida Gaston Work Phone: Bacteria identified in Blood by Culture Dr. Zaida Gaston Work Phone: Bacteria identified in Blood by Culture Dr. Zaida Gaston Work Phone: Cytopathology proced ure, preparation of smear, genital source Dr. Zaida Gaston Work Phone: Fungus stain method Dr. Nestor Gaston Work Phone: H/O: surgery History of insertion of nephrostomy tube Dr. Zaida Gaston MD Work Phone: History of amputatio n of lesser toe 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 Dr. Zaida Gaston Work Phone: History of renal transplant S/P kidney transplant [facility] Work Phone: History of renal transplant Melissa l transplant recipient Dr. Zaida Gaston Work Phone: History of renal transplant Kidn ey replaced by transplant [facility] Work Phone: History of renal transplant Kidn ey replaced by transplant Alana Roxanna BARREL DRAINER.WORKFORCE DEVELOPMENT SPECIALIST Work Phone: History of renal transplant Kidn ey replaced by transplant [facility] Work Phone: History of renal transplant Kidn ey replaced by transplant [facility] Work Phone: History of renal transplant Kidn ey replaced by transplant [facility] Work Phone: History of renal transplant Kidn ey replaced by transplant [facility] Work Phone: History of renal transplant Kidn ey replaced by transplant [facility] Work Phone: History of renal transplant Kidn ey replaced by transplant Rosi Casillas RN History of renal transplant Enco unter for aftercare following kidney transplant Lg Link MD Work Phone: History of renal transplant Kidn ey transplant recipient Xiang Perez PA-C Work Phone: History of renal transplant Kidn ey replaced by transplant [facility] Work Phone: History of renal transplant Kidn ey replaced by transplant Lashae Perry RN History of renal transplant Kidn ey replaced by transplant Conchis Sheets RN History of renal transplant Kidn ey replaced by transplant Lashae Perry RN History of renal transplant Kidn ey transplant recipient Delia [place]er BARREL DRAINER.WORKFORCE DEVELOPMENT SPECIALIST Work Phone: History of renal transplant Kidn ey transplant recipient Xiang Perez PA-C Work Phone: History of renal transplant Kidn ey replaced by transplant Conchis Sheets RN History of renal transplant Kidn ey replaced by transplant [facility] Work Phone: History of renal transplant Kidn ey transplant recipient Delia Older BARREL DRAINER.WORKFORCE DEVELOPMENT SPECIALIST Work Phone: History of renal transplant Melissa l transplant recipient Dr. Zaida Gaston MD Work Phone: History of renal transplant Melissa l transplant recipient Dr. Zaida Gaston MD Work Phone: History of renal transplant Kidn ey transplant recipient ([facility]) Zaida Gaston MD Work Phone: History of renal transplant Kidn ey transplant recipient Dr. Zaida Gaston MD Work Phone: Investigation of tra nsfusion reaction Dr. Zaida Gaston Work Phone: Investigation of tra nsfusion reaction Dr. Zaida Gaston Work Phone: Investigation of tra nsfusion reaction Dr. Zaida Gaston Work Phone: Microbial culture, routine D amilcar Gaston Work Phone: Microbial culture, routine D amilcar Gaston Work Phone: Microbial culture, routine D amilcar Gaston Work Phone: Microbial culture, routine D amilcar Gaston Work Phone: Mycology culture Dr. Zaida Gaston Work Phone: Viral antigen assay Dr. Nestor Gaston Work Phone: Plan of Treatment Date Care Activity Detail Author Start: 04-01-2029 Screening for malignant neoplasm of colon [facility] Start: 02-05-2026 Annual PCP Team Chronic Disease Visit Annual PCP Team Chronic Disease Visit [facility] Start: 02-05-2026 BP Controlled (<130/80) BP Controlled (<130/80) [facility] Start: 01-29-2026 Complete blood count Hemoglobin/Hematocrit [facility] Start: 01-29-2026 Creatinine measurement Serum Creatinine [facility] Start: 01-01-2026 Hepatitis B screening Urine Albumin:Creatinine Ratio [facility] Start: 01-01-2026 Hepatitis B surface antibody level LDL Cholesterol [facility] Start: 12-30-2025 Annual PCP Team Chronic Disease Visit Annual PCP Team Chronic Disease Visit [facility] Start: 12-30-2025 BP Controlled (<130/80) BP Controlled (<130/80) [facility] Start: 09-28-2025 Annual PCP Team Chronic Disease Visit Annual PCP Team Chronic Disease Visit [facility] Start: 09-28-2025 BP Controlled (<130/80) BP Controlled (<130/80) [facility] Start: 06-18-2025 Annual PCP Team Chronic Disease Visit Annual PCP Team Chronic Disease Visit [facility] Start: 05-24-2025 Urine microalbumin profile [facility] Start: 05-10-2025 Influenza [facility] Start: 04-12-2025 End: 04-12-2025 Patient encounter procedure 04/12/2025 10:00 AM EDT [facility] [address] [place] [address] [place] [address] [place] [id number] DM f/up [facility] Comment on above: DM f/up Start: 04-05-2025 End: 04-05-2025 Patient encounter procedure 04/05/2025 11:20 AM EDT Office Visit [facility] [place] [address] [place], [place] [id number] Zaida Gaston MD [address] [place] [address] 2 mo follow up [facility] [place] Comment on above: 2 mo follow up Start: 04-02-2025 Hemoglobin A1c measurement HbA1C [facility] fidencio Start: 03-24-2025 BP Controlled (<130/80) BP Controlled (<130/80) [facility] Start: 03-18-2025 Annual PCP Team Chronic Disease Visit Annual PCP Team Chronic Disease Visit [facility] Start: 03-18-2025 BP Controlled (<130/80) BP Controlled (<130/80) [facility] Start: 03-10-2025 [facility] Start: 03-08-2025 End: 03-08-2025 Patient encounter procedure 03/08/2025 10:30 AM EDT [facility] [address] [place], [place] [id number] [place]a [place] [address] [place] [phone] DM initial [facility] Comment on above: DM initial Start: 02-25-2025 End: 02-25-2025 Admission to same day surgery center 02/25/2025 9:40 AM EDT - 02/25/2025 11:20 AM EDT Surgery [facility] [address] [place] [address] [facility] [address] [place] [address] PERC EXCHANGE NEPHROSTOMY CATH, INCLUDING DIAGNOSTIC NEPHROSTOGRAM/URETEROGRA M WHEN PERFORMED,IMAGING GUIDANCE AND ALL ASSOCIATED RAD S&I Angio Comment on above: PERC EXCHANGE NEPHROSTOMY CATH, INCLUDIN G DIAGNOSTIC NEPHROSTOGRAM/URETEROGRAM WHEN PERFORMED,IMAGING GUIDANCE AND ALL ASSOCIATED RAD S&I Start: 02-25-2025 Subsequent hospital visit by physician 02/25/2025 9:40 AM EDT Hospital Encounter [facility] [address] [place] [address] [facility] [address] [place] [address] Hydronephrosis, unspecified hydronephrosis type [N13.30] Angio Comment on above: Hydronephrosis, unspecified hydronephros is type [N13.30] Start: 02-25-2025 End: 02-25-2025 Exchange nephrostomy catheter prq w/img gid rs&i [facility] HB6 Start: 02-15-2025 End: 02-15-2025 Patient encounter procedure 02/15/2025 9:30 AM EDT [facility] [address] [place] [address] [facility] [address] [place] [address] Type 1 diabetes mellitus on insulin therapy (HCC) [E10.9] [facility] Comment on above: Type 1 diabetes mellitus on insulin ther apy (HCC) [E10.9] Start: 02-11-2025 End: 02-11-2025 Patient encounter procedure Transplant C enter Comment on above: hosp d/c-per Consult (antegrade s tone management/surgical discussion) Start: 02-07-2025 [facility] Start: 02-05-2025 End: 02-05-2025 Patient encounter procedure 02/05/2025 11:40 AM EDT Office Visit [facility] Medicine [place] [address] [place] [address] Zaida Gaston MD [address] [place] [address] [facility] main hosp follow up kidney stones [facility] [place] Comment on above: [facility] main hosp follow up kidney stones Start: 01-26-2025 End: 01-26-2025 [facility] Start: 01-26-2025 Bacteria identified in Urine by Culture Urine Culture [facility] Start: 01-21-2025 Annual PCP Team Chronic Disease Visit Annual PCP Team Chronic Disease Visit [facility] Start: 01-21-2025 BP Controlled (<130/80) BP Controlled (<130/80) [facility] Start: 01-12-2025 BP Controlled (<130/80) BP Controlled (<130/80) [facility] Start: 01-09-2025 Creatinine measurement Serum Creatinine [facility] Start: 01-09-2025 Hepatitis B surface antibody level LDL Cholesterol [facility] Start: 12-29-2024 End: 12-29-2024 Patient encounter procedure 12/29/2024 2:20 PM EDT Office Visit [facility] [place] [address] [facility] [place] [address] Zaida Gaston MD [address] [place] [address] 3 mo follow up [facility] [place] Comment on above: 3 mo follow up Start: 12-27-2024 End: 03-28-2025 25-hydroxyvitamin D3 [Mass/volume] in Serum or Plasma VITAMIN D 25 HYDROXY Lab Routine Vitamin D deficiency Expected: 12/27/2024, Expires: 03/28/2025 [facility] Comment on above: Expected: 12/27/2024, Expires: Start: 12-27-2024 End: 03-28-2025 CBC panel - Blood by Automated count COMPLETE BLOOD COUNT Lab Routine Type 1 diabetes mellitus on insulin therapy (HCC) Expected: 12/27/2024, Expires: 03/28/2025 [facility] Work Phone: Comment on above: Expected: 12/27/2024, Expires: Start: 12-27-2024 End: 03-28-2025 Comprehensive metabolic 2000 panel - Serum or Plasma COMPREHENSIVE METABOLIC PANEL Lab Routine Type 1 diabetes mellitus on insulin therapy (HCC) Expected: 12/27/2024, Expires: 03/28/2025 [facility] Comment on above: Expected: 12/27/2024, Expires: Start: 12-27-2024 End: 03-28-2025 Lipid 1996 panel - Serum or Plasma LIPID PANEL BASIC Lab Routine Type 1 diabetes mellitus on insulin therapy (HCC) Expected: 12/27/2024, Expires: 03/28/2025 [facility] Comment on above: Expected: 12/27/2024, Expires: Start: 12-27-2024 End: 03-28-2025 Thyrotropin [Units/volume] in Serum or Plasma THYROID STIMULATING HORMONE Lab Routine Type 1 diabetes mellitus on insulin therapy (HCC) Expected: 12/27/2024, Expires: 03/28/2025 [facility] Comment on above: Expected: 12/27/2024, Expires: Start: 12-17-2024 Hemoglobin A1c measurement HbA1C [facility] Start: 11-25-2024 Annual PCP Team Chronic Disease Visit Annual PCP Team Chronic Disease Visit [facility] Start: 11-25-2024 Complete blood count Hemoglobin/Hematocrit [facility] Start: 11-25-2024 Creatinine measurement Serum Creatinine [facility] Start: 11-25-2024 Hepatitis B surface antibody level LDL Cholesterol [facility] Start: 11-19-2024 End: 11-19-2024 [facility] Start: 11-19-2024 Bacteria identified in Urine by Culture Urine Culture [facility] Start: 10-03-2024 Glaucoma screening Dilated Retinal Exam [facility] Start: 09-21-2024 End: 09-21-2024 Patient encounter procedure 09/21/2024 11:40 AM EST Office Visit [facility] [address] [place] [address] Zaida Gaston MD [address] [place] [id number] 3 month follow up [facility] Comment on above: 3 month follow up Start: 09-18-2024 Annual PCP Team Chronic Disease Visit Annual PCP Team Chronic Disease Visit [facility] Start: 09-18-2024 BP Controlled (<130/80) BP Controlled (<130/80) [facility] in Start: 09-18-2024 Covid-19 Vaccine () Covid-19 Vaccine () [facility] Comment on above: Postponed from 05/10/2023 (Declined at t his time) Start: 09-18-2024 Hepatitis A Vaccine (1 of 2 - Risk 2-dose series) Hepatitis A Vaccine (1 of 2 - Risk 2-dose series) [facility] Comment on above: Postponed from 12/08/1987 (Declined at t his time) Start: 09-18-2024 Pneumococcal vaccination Pneumococcal Vaccine (3 of 3 - PPSV23 or PCV20) [facility] Comment on above: Postponed from 09/01/2021 (Declined at t his time) Start: 09-18-2024 Shingrix Vaccine (1 of 2) Shingrix Vaccine (1 of 2) [facility] Comment on above: Postponed from 12/08/1987 (Declined at t his time) Start: 09-11-2024 End: 12-11-2024 Microalbumin/Creatinine [Mass Ratio] in Urine ALBUMIN/CREATININE RATIO, URINE Lab Routine Type 1 diabetes mellitus on insulin therapy (HCC) Expected: 09/11/2024 (Approximate), Expires: 12/11/2024 [facility] Work Phone: Comment on above: Expected: 09/11/2024 (Approximate), Expi res: 12/11/2024 Start: 09-09-2024 Medicare Advantage Annual Wellness Visit Medicare Advantage Annual Wellness Visit [facility] Start: 09-07-2024 Creatinine measurement Serum Creatinine [facility] Start: 09-07-2024 Hepatitis B screening Urine Albumin:Creatinine Ratio [facility] Start: 09-07-2024 Hepatitis B surface antibody level LDL Cholesterol [facility] Start: 09-07-2024 End: 09-07-2024 Patient encounter procedure 09/07/2024 2:00 PM EST Office Visit Transplant Center [address] [place], [place] [id number] Providers, [facility] [address] [address] Follow up in [facility] clinic in 6 months [facility] Comment on above: Follow up in [facility] clinic in 6 months Start: 08-21-2024 Diabetic foot examination Diabetic Foot Exam [facility] Start: 08-13-2024 BP Controlled (<130/80) BP Controlled (<130/80) [facility] Start: 07-19-2024 Complete blood count Hemoglobin/Hematocrit [facility] Start: 07-19-2024 Creatinine measurement Serum Creatinine [facility] Start: 07-19-2024 Hemoglobin/Hematocrit Hemoglobin/Hematocrit [facility] Start: 07-19-2024 Hepatitis B screening Urine Albumin:Creatinine Ratio [facility] Start: 07-19-2024 Serum Creatinine Serum Creatinine [facility] Start: 07-16-2024 End: 07-16-2024 Patient encounter procedure 07/16/2024 1:40 PM EST Office Visit Transplant Center [address] [address] Providers, [facility] [address] [address] Follow up in [facility] clinic in 6 months Trans[facility] Center Comment on above: Follow up in [facility] clinic in 6 months Start: 07-15-2024 BP Controlled (<130/80) BP Controlled (<130/80) [facility] in Start: 07-15-2024 Hemoglobin/Hematocrit Hemoglobin/Hematocrit [facility] Start: 07-15-2024 Hepatitis B surface antibody level LDL Cholesterol [facility] Start: 07-15-2024 Serum Creatinine Serum Creatinine [facility] Start: 06-18-2024 End: 06-18-2024 Patient encounter procedure 06/18/2024 11:40 AM EDT Office Visit Internal Medicine [facility] [address] [place] [address] Zaida Gaston MD [address] [place] [address] 3 month follow up [facility] Comment on above: 3 month follow up Start: 05-21-2024 Annual PCP Team Chronic Disease Visit Annual PCP Team Chronic Disease Visit [facility] Start: 05-10-2024 Covid-19 Vaccine ( season) Covid-19 Vaccine ( season) [facility] Start: 05-10-2024 Covid-19 Vaccine ( season) Covid-19 Vaccine () [facility] Start: 05-10-2024 Influenza vaccination Influ[facility] Vaccine (#[facility] Start: 03-24-2024 End: 03-24-2024 Patient encounter procedure General Surg [facility] Comment on above: Colon Consult, last colon 12/04/2018, fam jeniffer hx of colon ca, 5 year repeat bjs Start: 03-18-2024 End: 03-18-2024 Patient encounter procedure 03/18/2024 5:40 PM EDT Office Visit Internal Medicine [facility] [address] [place], [place] [phone] 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 APRN.[employer]ELOP[employer] SPECIALIST [address] [place], [place] [phone] 6 wk f/u [facility] [place] Comment on above: 6 wk f/u Start: 03-18-2024 HEMOGLOBIN/HEMATOCRIT HEMOGLOBIN/HEMATOCRIT [facility] Start: 03-18-2024 Hepatitis B screening URINE ALBUMIN:CREATININE RATIO [facility] Start: 03-18-2024 SERUM CREATININE SERUM CREATININE [facility] Start: 03-05-2024 HEMOGLOBIN/HEMATOCRIT HEMOGLOBIN/HEMATOCRIT [facility] Start: 03-05-2024 SERUM CREATININE SERUM CREATININE [facility] Start: 02-28-2024 End: 02-28-2024 Patient encounter procedure 02/28/2024 11:30 AM EDT Office Visit General Surgery [address] [place] [address] Karl Kaufman MD [address] [phone] Colon Consult, last colon 12/04/2018, family hx of colon ca, 5 year repeat bjs General Surgery Comment on above: Colon Consult, last colon 12/04/2018, fam jeniffer hx of colon ca, 5 year repeat bjs Start: 02-26-2024 ANNUAL PCP TEAM CHRONIC DISEASE VISIT ANNUAL PCP TEAM CHRONIC DISEASE VISIT [facility] Start: 02-26-2024 Hemoglobin A1c measurement HbA1C [facility] Start: 02-04-2024 End: 02-04-2024 Patient encounter procedure 02/04/2024 12:00 PM EDT Office Visit General Surgery [address] [place] [address] Karl Kaufman MD [address] [address] 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]; Colon cancer screening [Z12.11]; Type 1 diabetes mellitus on insulin therapy (HCC) [E10.9]; Kidney transplant recipient [Z94.0] General Surgery Comment on above: 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) (HC C) [D84.821]; Colon cancer screening [Z12.11]; Type 1 diabetes mellitus on insulin therapy (HCC) [E10.9]; Kidney transplant recipient [Z94.0] Start: 01-22-2024 End: 01-22-2024 Patient encounter procedure 01/22/2024 4:40 PM EDT Office Visit Internal Medicine [facility] [address] [place], [place] [id number] 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 APRN.CNP [address] [place] [address] 3 month follow up [facility] Comment on above: 3 month follow up Start: 01-03-2024 HEMOGLOBIN/HEMATOCRIT HEMOGLOBIN/HEMATOCRIT [facility] Start: 01-03-2024 SERUM CREATININE SERUM CREATININE [facility] Start: 12-29-2023 HEMOGLOBIN/HEMATOCRIT HEMOGLOBIN/HEMATOCRIT [facility] Start: 12-29-2023 Hepatitis B surface antibody level LDL CHOLESTEROL [facility] Start: 12-29-2023 SERUM CREATININE SERUM CREATININE [facility] Start: 12-08-2023 Prostate specific antigen measurement Prostate Cancer Screening Discussion [facility] Start: 12-05-2023 Colonoscopy COLONOSCOPY [facility] Start: 12-05-2023 COLORECTAL CANCER SCREENING COLORECTAL CANCER SCREENING [facility] Start: 12-05-2023 Screening for malignant neoplasm of colon [facility] Start: 11-26-2023 End: 02-25-2024 Hemoglobin A1c in Blood [facility] Work Phone: Comment on above: Expected: 11/26/2023, Expires: 4 Start: 11-26-2023 End: 02-25-2024 Thyrotropin [Units/volume] in Serum or Plasma [facility] Work Phone: Comment on above: Expected: 11/26/2023, Expires: 4 Start: 11-24-2023 ANNUAL PCP TEAM CHRONIC DISEASE VISIT ANNUAL PCP TEAM CHRONIC DISEASE VISIT [facility] Start: 11-24-2023 BP CONTROLLED (<130/80) BP CONTROLLED (<130/80) [facility] Start: 10-25-2023 Hemoglobin A1c measurement HbA1C [facility] Start: 10-13-2023 HEMOGLOBIN/HEMATOCRIT HEMOGLOBIN/HEMATOCRIT [facility] Start: 10-13-2023 Hepatitis B surface antibody level LDL CHOLESTEROL [facility] Start: 10-13-2023 SERUM CREATININE SERUM CREATININE [facility] Start: 10-04-2023 BP CONTROLLED (<130/80) BP CONTROLLED (<130/80) [facility] Start: 09-15-2023 HEMOGLOBIN/HEMATOCRIT HEMOGLOBIN/HEMATOCRIT [facility] Start: 09-15-2023 Hepatitis B screening URINE ALBUMIN:CREATININE RATIO [facility] Start: 09-15-2023 SERUM CREATININE SERUM CREATININE [facility] Start: 08-25-2023 ANNUAL PCP TEAM CHRONIC DISEASE VISIT ANNUAL PCP TEAM CHRONIC DISEASE VISIT [facility] Start: 08-04-2023 HEMOGLOBIN/HEMATOCRIT HEMOGLOBIN/HEMATOCRIT [facility] Start: 08-04-2023 SERUM CREATININE SERUM CREATININE [facility] Start: 08-03-2023 BP CONTROLLED (<130/80) BP CONTROLLED (<130/80) [facility] Start: 07-21-2023 End: 10-20-2023 CBC W Auto Differential panel - Blood CBC + DIFF Lab STAT Kidney replaced by transplant Expected: 07/21/2023 (Approximate), Expires: 10/20/2023 [facility] Work Phone: Comment on above: Expected: 07/21/2023 (Approximate), Expi res: 10/20/2023 Start: 07-21-2023 End: 10-20-2023 Comprehensive metabolic 2000 panel - Serum or Plasma COMP METABOLIC PANEL Lab STAT Kidney replaced by transplant Expected: 07/21/2023 (Approximate), Expires: 10/20/2023 [facility] Work Phone: Comment on above: Expected: 07/21/2023 (Approximate), Expi res: 10/20/2023 Start: 07-15-2023 End: 10-14-2023 ALLOSURE KIDNEY [facility] Work Phone: Comment on above: Expected: 07/15/2023, Expires: Start: 07-15-2023 End: 07-14-2024 KID/URIAS REC POST TX DSA [facility] Work Phone: Comment on above: Expected: 07/15/2023, Expires: Start: 07-13-2023 ANNUAL PCP TEAM CHRONIC DISEASE VISIT ANNUAL PCP TEAM CHRONIC DISEASE VISIT [facility] Start: 07-05-2023 BP CONTROLLED (<130/80) BP CONTROLLED (<130/80) [facility] Start: 07-02-2023 HEMOGLOBIN/HEMATOCRIT HEMOGLOBIN/HEMATOCRIT [facility] Start: 07-02-2023 SERUM CREATININE SERUM CREATININE [facility] Start: 06-08-2023 HEMOGLOBIN/HEMATOCRIT HEMOGLOBIN/HEMATOCRIT [facility] Start: 06-08-2023 SERUM CREATININE SERUM CREATININE [facility] Start: 05-10-2023 Covid-19 Vaccine () Covid-19 Vaccine () [facility] Start: 05-10-2023 Influenza vaccination [facility] Start: 04-10-2023 ANNUAL PCP TEAM CHRONIC DISEASE VISIT ANNUAL PCP TEAM CHRONIC DISEASE VISIT [facility] Start: 04-10-2023 BP CONTROLLED (<130/80) BP CONTROLLED (<130/80) [facility] Start: 03-18-2023 End: 05-18-2023 ALLOSURE KIDNEY ALLOSURE KIDNEY Lab Routine Encounter for aftercare following kidney transplant Expected: 03/18/2023, Expires: 05/18/2023 [facility] Work Phone: Comment on above: Expected: 03/18/2023, Expires: 3 Start: 03-18-2023 End: 03-13-2024 KID/URIAS REC POST TX DSA KID/URIAS REC POST TX DSA ALLOGEN Routine Encounter for aftercare following kidney transplant Expected: 03/18/2023, Expires: 03/13/2024 [facility] Work Phone: Comment on above: Expected: 03/18/2023, Expires: 4 Start: 03-14-2023 [facility] Start: 03-03-2023 HEMOGLOBIN/HEMATOCRIT HEMOGLOBIN/HEMATOCRIT [facility] Start: 03-03-2023 Hepatitis B surface antibody level LDL CHOLESTEROL [facility] Start: 03-03-2023 SERUM CREATININE SERUM CREATININE [facility] Start: 02-13-2023 HEMOGLOBIN/HEMATOCRIT HEMOGLOBIN/HEMATOCRIT [facility] Start: 02-13-2023 Hepatitis B surface antibody level LDL CHOLESTEROL [facility] Start: 02-13-2023 SERUM CREATININE SERUM CREATININE [facility] Start: 02-09-2023 Glaucoma screening Dilated Retinal Exam [facility] Start: 02-09-2023 Hepatitis C antibody, confirmatory test DILATED RETINAL EXAM [facility] Start: 01-12-2023 HEMOGLOBIN/HEMATOCRIT HEMOGLOBIN/HEMATOCRIT [facility] Start: 01-12-2023 Hepatitis B surface antibody level LDL CHOLESTEROL [facility] Start: 01-12-2023 SERUM CREATININE SERUM CREATININE [facility] Start: 01-10-2023 Hemoglobin A1c measurement HbA1C [facility] Start: 01-10-2023 Hemoglobin A1c/Hemoglobin.total in Blood HBA1C [facility] Start: 01-02-2023 End: 03-04-2023 Basic metabolic 2000 panel - Serum or Plasma BASIC METABOLIC PNL Lab STAT Kidney replaced by transplant Expected: 01/02/2023 (Approximate), Expires: 03/04/2023 [facility] Work Phone: Comment on above: Expected: 01/02/2023 (Approximate), Expi res: 03/04/2023 Start: 01-02-2023 End: 03-04-2023 Tacrolimus [Mass/volume] in Blood TACROLIMUS/FK-506 BL Lab STAT Kidney replaced by transplant Expected: 01/02/2023 (Approximate), Expires: 03/04/2023 [facility] Work Phone: Comment on above: Expected: 01/02/2023 (Approximate), Expi res: 03/04/2023 Start: 12-31-2022 End: 03-02-2023 ALLOSURE KIDNEY ALLOSURE KIDNEY Lab Routine Kidney replaced by transplant Expected: 12/31/2022, Expires: 03/02/2023 [facility] Work Phone: Comment on above: Expected: 12/31/2022, Expires: 3 Start: 12-31-2022 End: 12-31-2023 KID/URIAS REC POST TX DSA KID/URIAS REC POST TX DSA ALLOGEN Routine Kidney replaced by transplant Expected: 12/31/2022, Expires: 12/31/2023 [facility] Work Phone: Comment on above: Expected: 12/31/2022, Expires: 4 Start: 12-31-2022 End: 03-02-2023 Protein/Creatinine [Mass Ratio] in Urine PROTEIN CREATININE RATIO Lab Routine Kidney replaced by transplant Expected: 12/31/2022, Expires: 03/02/2023 [facility] Work Phone: Comment on above: Expected: 12/31/2022, Expires: 3 Start: 12-25-2022 HEMOGLOBIN/HEMATOCRIT HEMOGLOBIN/HEMATOCRIT [facility] Start: 12-25-2022 Hepatitis B surface antibody level LDL CHOLESTEROL [facility] Start: 12-25-2022 SERUM CREATININE SERUM CREATININE [facility] Start: 11-24-2022 HEMOGLOBIN/HEMATOCRIT HEMOGLOBIN/HEMATOCRIT [facility] Start: 11-24-2022 SERUM CREATININE SERUM CREATININE [facility] Start: 11-17-2022 Hepatitis B surface antibody level LDL CHOLESTEROL [facility] Start: 11-05-2022 Patient discharge [facility] Start: 11-02-2022 Wound care [facility] Start: 11-01-2022 [facility] Start: 11-01-2022 Application of intermittent pneumatic compression device [facility] Start: 11-01-2022 Following clinical pathway protocol [facility] Start: 11-01-2022 Assessment of risk of venous thromboembolism [facility] Start: 11-01-2022 Care regimes management [facility] Start: 11-01-2022 Consultation [facility] Start: 11-01-2022 Consultation for treatment [facility] Start: 11-01-2022 Insertion of catheter into peripheral vein [facility] Start: 11-01-2022 Providing care according to standard [facility] Start: 11-01-2022 Referral to service [facility] Start: 11-01-2022 [facility] Start: 11-01-2022 Admission procedure [facility] Start: 11-01-2022 Amputation of toe Amputation Toe/Foot (Left) [facility] Start: 11-01-2022 Verification routine [facility] Start: 11-01-2022 Admission procedure [facility] Start: 11-01-2022 Fluoroscopic guidance O.R. Fluoro for C-Arm [facility] Start: 11-01-2022 Radiography of foot Foot 2 Views [facility] Start: 11-01-2022 Electrocardiographic procedure [facility] Start: 11-01-2022 End: 11-01-2022 Blood culture [facility] Start: 11-01-2022 End: 11-02-2022 [facility] Start: 10-13-2022 ANNUAL PCP TEAM CHRONIC DISEASE VISIT ANNUAL PCP TEAM CHRONIC DISEASE VISIT [facility] Start: 10-13-2022 End: 12-13-2022 Hemoglobin A1c in Blood HGB A1C Lab Routine Type 1 diabetes mellitus on insulin therapy (HCC) Expected: 10/13/2022, Expires: 12/13/2022 [facility] Work Phone: Comment on above: Expected: 10/13/2022, Expires: Start: 10-13-2022 Hemoglobin A1c/Hemoglobin.total in Blood HBA1C [facility] Start: 08-25-2022 End: 10-25-2022 ALBUMIN/CREAT RATIO RND UR ALBUMIN/CREAT RATIO RND UR Lab Routine Diabetic polyneuropathy associated with type 2 diabetes mellitus (HCC) Expected: 08/25/2022, Expires: 10/25/2022 [facility] Work Phone: Comment on above: Expected: 08/25/2022, Expires: 3 Start: 07-11-2022 Hepatitis B screening URINE ALBUMIN:CREATININE RATIO [facility] Start: 07-07-2022 3 comp foot exam completed DIABETIC FOOT EXAM [facility] Start: 07-07-2022 Diabetic foot examination Diabetic Foot Exam [facility] Start: 07-07-2022 PNEUMOCOCCAL (3 - PPSV23 if available, else PCV20) PNEUMOCOCCAL (3 - PPSV23 if available, else PCV20) [facility] Start: 07-07-2022 PNEUMOCOCCAL (3 - PPSV23 or PCV20) PNEUMOCOCCAL (3 - PPSV23 or PCV20) [facility] Start: 07-07-2022 Pneumococcal vaccination Pneumococcal Vaccine (3 - PPSV23 or PCV20) [facility] Start: 05-10-2022 Influenza vaccination INFLUENZA (#1) [facility] Start: 04-03-2022 Blood chemistry [facility] Work Phone: Start: 04-02-2022 Blood chemistry [facility] Work Phone: Start: 04-01-2022 Blood chemistry [facility] Work Phone: Start: 03-31-2022 Blood chemistry [facility] Work Phone: Start: 03-30-2022 Blood chemistry [facility] Work Phone: Start: 03-29-2022 Blood chemistry [facility] Work Phone: Start: 03-28-2022 Patient discharge [facility] Work Phone: Start: 03-27-2022 Referral to service [facility] Work Phone: Start: 03-26-2022 Blood culture [facility] Work Phone: Start: 03-26-2022 Vacuum assisted skin closure [facility] Work Phone: Start: 03-25-2022 [facility] Work Phone: Start: 03-24-2022 Referral to occupational therapist [facility] Work Phone: Start: 03-24-2022 Referral to service [facility] Work Phone: Start: 03-24-2022 Provision of activity privileges [facility] Work Phone: Start: 03-24-2022 [facility] Work Phone: Start: 03-24-2022 Care planning and problem solving actions [facility] Work Phone: Start: 03-24-2022 Following clinical pathway protocol [facility] Work Phone: Start: 03-24-2022 Assessment of risk of venous thromboembolism [facility] Work Phone: Start: 03-24-2022 Care regimes management [facility] Work Phone: Start: 03-24-2022 Consultation [facility] Work Phone: Start: 03-24-2022 Consultation for treatment [facility] Work Phone: Start: 03-24-2022 Documentation procedure [facility] Work Phone: Start: 03-24-2022 Fall prevention [facility] Work Phone: Start: 03-24-2022 Incentive spirometry [facility] Work Phone: Start: 03-24-2022 Insertion of catheter into peripheral vein [facility] Work Phone: Start: 03-24-2022 Introduction of urinary catheter [facility] Work Phone: Start: 03-24-2022 Measuring intake and output [facility] Work Phone: Start: 03-24-2022 Patient referral to dietitian [facility] Work Phone: Start: 03-24-2022 Providing care according to standard [facility] Work Phone: Start: 03-24-2022 Provision of activity privileges [facility] Work Phone: Start: 03-24-2022 Referral to map clerk [facility] Work Phone: Start: 03-24-2022 Referral to middleware consultant [facility] Work Phone: Start: 03-24-2022 Referral to service [facility] Work Phone: Start: 03-24-2022 Skin care [facility] Work Phone: Start: 03-24-2022 Vital signs measurements [facility] Work Phone: Start: 03-24-2022 [facility] Work Phone: Start: 03-24-2022 Verification routine [facility] Work Phone: Start: 03-24-2022 Admission procedure [facility] Work Phone: Start: 03-24-2022 Bacterial nucleic acid assay [facility] Work Phone: Start: 03-24-2022 End: 03-24-2022 [facility] Work Phone: Start: 03-24-2022 End: 03-24-2022 Blood culture [facility] Work Phone: Start: 03-24-2022 Patient referral to dietitian [facility] Work Phone: Start: 03-08-2022 End: 05-08-2022 Hemoglobin A1c in Blood HGB A1C Lab Routine Kidney replaced by transplant Expected: 03/08/2022, Expires: 05/08/2022 [facility] Work Phone: Comment on above: Expected: 03/08/2022, Expires: 2 Start: 12-20-2021 End: 02-19-2022 CLINICAL TRIAL DRAW CLINICAL TRIAL DRAW Lab Routine Research subject Expected: 12/20/2021, Expires: 02/19/2022 [facility] Work Phone: Comment on above: Expected: 12/20/2021, Expires: 2 Start: 02-11-2022 Hepatitis C antibody, confirmatory test DILATED RETINAL EXAM [facility] Start: 10-11-2021 Hemoglobin A1c/Hemoglobin.total in Blood HBA1C [facility] Start: 09-14-2021 Emergency department visit high/urgent severity EMERGENCY DEPT VISIT [facility] Work Phone: Start: 09-14-2021 Iv infusion hydration each additional hour HYDRATE IV INFUSION ADD-ON [facility] Work Phone: Start: 09-14-2021 Iv infusion hydration initial 31 min-1 hour HYDRATION IV INFUSION INIT [facility] Work Phone: Start: 09-01-2021 Pneumococcal vaccination Pneumococcal Vaccine (3 of 3 - PPSV23 or PCV20) [facility] Start: 09-01-2021 Pneumococcal Vaccine: 50+ (3 of 3 - PPSV23, PCV20 or PCV21) Pneumococcal Vaccine: 50+ (3 of 3 - PPSV23, PCV20 or PCV21) [facility] Start: 03-22-2021 COVID-19 VACCINE (4 - Booster) COVID-19 VACCINE (4 - Booster) [facility] Start: 03-15-2021 COVID-19 VACCINE (4 - Booster) COVID-19 VACCINE (4 - Booster) [facility] Start: 02-15-2021 COVID-19 VACCINE (4 - Booster for Moderna series) COVID-19 VACCINE (4 - Booster for Moderna series) [facility] Start: 02-15-2021 COVID-19 VACCINE (4 - Booster) COVID-19 VACCINE (4 - Booster) [facility] Start: 02-15-2021 Covid-19 Vaccine (4 - Moderna risk series) Covid-19 Vaccine (4 - Moderna risk series) [facility] Start: 01-18-2021 Covid-19 Vaccine (3 - Moderna risk series) Covid-19 Vaccine (3 - Moderna risk series) [facility] Start: 2018 SHINGRIX VACCINE (1 of 2) SHINGRIX VACCINE (1 of 2) [facility] Start: 11-07-2017 TWO PNEUMOVAX 5 YEARS APART PRIOR TO AGE 65 (#2) TWO PNEUMOVAX 5 YEARS APART PRIOR TO AGE 65 (#2) [facility] Start: 2013 COLOGUARD (FIT-DNA) COLOGUARD (FIT-DNA) [facility] Start: [address] COLONOGRAPHY [facility] Start: 2013 FECAL OCCULT BLOOD FECAL OCCULT BLOOD [facility] Start: 2013 Prostate specific antigen measurement Prostate Cancer Screening Discussion [facility] Start: 2013 Screening for malignant neoplasm of colon [facility] Start: 2013 SIGMOIDOSCOPY SIGMOIDOSCOPY [facility] Start: 12-08-1987 HEPATITIS A (1 of 2 - Risk 2-dose series) HEPATITIS A (1 of 2 - Risk 2-dose series) [facility] Start: 12-08-1987 Hepatitis A Vaccine (1 of 2 - Risk 2-dose series) Hepatitis A Vaccine (1 of 2 - Risk 2-dose series) [facility] Start: 12-08-1987 SHINGRIX VACCINE (1 of 2) SHINGRIX VACCINE (1 of 2) [facility] Start: 1986 Anxiety Screening Anxiety Screening [facility] Start: 1986 BP CONTROLLED (<130/80) BP CONTROLLED (<130/80) [facility] in Start: 1969 HEPATITIS A (1 of 2 - Risk 2-dose series) HEPATITIS A (1 of 2 - Risk 2-dose series) [facility] End: 07-13-2024 25-hydroxyvitamin D3 [Mass/volume] in Serum or Plasma VITAMIN D 25 HYDROXY Lab Routine Kidney replaced by transplant Vitamin D deficiency Every 3 months for 100 Occurrences starting 07/15/2023 until 07/13/2024, 1 completed [facility] Work Phone: Comment on above: Every 3 months for 100 Occurrences start ing 07/15/2023 until 07/13/2024, 1 completed End: 07-25-2024 25-hydroxyvitamin D3 [Mass/volume] in Serum or Plasma VITAMIN D 25 HYDROXY Lab Routine Kidney replaced by transplant High risk medication use Vitamin D deficiency Every 3 months for 50 Occurrences starting 07/25/2023 until 07/25/2024 [facility] Work Phone: Comment on above: Every 3 months for 50 Occurrences starti ng 07/25/2023 until 07/25/2024 Acid fast bacilli culture [facility] Work Phone: Acid fast bacilli culture [facility] End: 03-13-2024 ALBUMIN/CREAT RATIO RND UR ALBUMIN/CREAT RATIO RND UR Lab Routine Encounter for aftercare following kidney transplant Once per week for 4 Occurrences starting 03/14/2023 until 03/13/2024 [facility] Work Phone: Comment on above: Once per week for 4 Occurrences starting 03/14/2023 until 03/13/2024 Anaerobic microbial culture Anaerobic [facility] Work Phone: Anaerobic microbial culture Anaerobic [facility] Bacteria identified in Blood by Culture Blood Culture [facility] Bacteria identified in Blood by Culture Blood Culture [facility] Bacteria identified in Urine by Culture URINE CULTURE Microbiology Routine Kidney replaced by transplant Ordered: 12/31/2022 [facility] Work Phone: Comment on above: Ordered: 12/31/2022 Bacterial nucleic acid assay [facility] Work Phone: Bilirubin measurement, urine [facility] End: 06-08-2023 BK VIRUS PCR,QUANT,P BK VIRUS PCR,QUANT,P Lab Routine Kidney replaced by transplant Once per month for 100 Occurrences starting 06/08/2022 until 06/08/2023, 2 completed [facility] Work Phone: Comment on above: Once per month for 100 Occurrences start ing 06/08/2022 until 06/08/2023, 2 completed End: 07-15-2024 BK VIRUS PCR,QUANT,P BK VIRUS PCR,QUANT,P Lab Routine Kidney replaced by transplant Every 3 months for 100 Occurrences starting 07/15/2023 until 07/15/2024, 2 completed [facility] Work Phone: Comment on above: Every 3 months for 100 Occurrences start ing 07/15/2023 until 07/15/2024, 2 completed End: 07-25-2024 BK VIRUS PCR,QUANT,P BK VIRUS PCR,QUANT,P Lab Routine Kidney replaced by transplant High risk medication use Every 3 months for 50 Occurrences starting 07/25/2023 until 07/25/2024 [facility] Work Phone: Comment on above: Every 3 months for 50 Occurrences starti ng 07/25/2023 until 07/25/2024 Blood culture [facility] Work Phone: C reactive protein [Mass/volume] in Serum or Plasma [facility] Work Phone: End: 06-08-2023 CBC W Auto Differential panel - Blood CBC + DIFF Lab Routine Kidney replaced by transplant Once per month for 100 Occurrences starting 06/08/2022 until 06/08/2023, 1 completed [facility] Work Phone: Comment on above: Once per month for 100 Occurrences start ing 06/08/2022 until 06/08/2023, 1 completed End: 03-13-2024 CBC W Auto Differential panel - Blood CBC + DIFF Lab Routine Encounter for aftercare following kidney transplant Once per week for 4 Occurrences starting 03/14/2023 until 03/13/2024 [facility] Work Phone: Comment on above: Once per week for 4 Occurrences starting 03/14/2023 until 03/13/2024 End: 07-15-2024 CBC W Auto Differential panel - Blood CBC + DIFF Lab Routine Kidney replaced by transplant Once per month for 100 Occurrences starting 07/15/2023 until 07/15/2024 [facility] Work Phone: Comment on above: Once per month for 100 Occurrences start ing 07/15/2023 until 07/15/2024 End: 07-25-2024 CBC W Auto Differential panel - Blood CBC + DIFF Lab Routine Kidney replaced by transplant High risk medication use Once per month for 99 Occurrences starting 07/25/2023 until 07/25/2024 [facility] Work Phone: Comment on above: Once per month for 99 Occurrences starti ng 07/25/2023 until 07/25/2024 Clostridioides diffi cile toxin genes [Presence] in Stool by CARMEN with probe detection C. DIFFICILE PCR Lab Routine Diarrhea, unspecified type Ordered: 11/26/2023 [facility] Work Phone: Comment on above: Ordered: 11/26/2023 End: 06-08-2023 CMV DNA DETECTION AND QUANT CMV DNA DETECTION AND QUANT Lab Routine Kidney replaced by transplant Once per month for 100 Occurrences starting 06/08/2022 until 06/08/2023, 1 completed [facility] Work Phone: Comment on above: Once per month for 100 Occurrences start ing 06/08/2022 until 06/08/2023, 1 completed End: 06-08-2023 Comprehensive metabolic 2000 panel - Serum or Plasma COMP METABOLIC PANEL Lab Routine Kidney replaced by transplant Once per month for 100 Occurrences starting 06/08/2022 until 06/08/2023, 1 completed [facility] Work Phone: Comment on above: Once per month for 100 Occurrences start ing 06/08/2022 until 06/08/2023, 1 completed End: 03-13-2024 Comprehensive metabolic 2000 panel - Serum or Plasma COMP METABOLIC PANEL Lab Routine Encounter for aftercare following kidney transplant Once per week for 4 Occurrences starting 03/14/2023 until 03/13/2024 [facility] Work Phone: Comment on above: Once per week for 4 Occurrences starting 03/14/2023 until 03/13/2024 End: 07-15-2024 Comprehensive metabolic 2000 panel - Serum or Plasma COMP METABOLIC PANEL Lab Routine Kidney replaced by transplant Once per month for 100 Occurrences starting 07/15/2023 until 07/15/2024 [facility] Work Phone: Comment on above: Once per month for 100 Occurrences start ing 07/15/2023 until 07/15/2024 End: 07-25-2024 Comprehensive metabolic 2000 panel - Serum or Plasma COMP METABOLIC PANEL Lab Routine Kidney replaced by transplant High risk medication use Once per month for 99 Occurrences starting 07/25/2023 until 07/25/2024 [facility] Work Phone: Comment on above: Once per month for 99 Occurrences starti ng 07/25/2023 until 07/25/2024 End: 03-24-2025 EGD DIAGNOSTIC EGD DIAGNOSTIC Endoscopy Routine Diarrhea, unspecified type 1 Occurrences starting 03/24/2024 until 03/24/2025 [facility] Work Phone: Comment on above: 1 Occurrences starting 03/24/2024 until 03/24/2025 ENTERIC BACTERIAL PA KATHERIN BY PCR ENTERIC BACTERIAL PANEL BY PCR Lab Routine Diarrhea, unspecified type Ordered: 11/26/2023 [facility] Work Phone: Comment on above: Ordered: 11/26/2023 Erythrocyte sediment ation rate [facility] Work Phone: FECAL LACTOFERRIN/LEUKOCYTES FEC AL LACTOFERRIN/LEUKOCYTES Lab Routine Diarrhea, unspecified type Ordered: 11/26/2023 [facility] Work Phone: Comment on above: Ordered: 11/26/2023 End: 03-24-2025 Flexible sigmoidoscopy study COLONOSCOPY DIAGNOSTIC Endoscopy Routine Diarrhea, unspecified type 1 Occurrences starting 03/24/2024 until 03/24/2025 [facility] Comment on above: 1 Occurrences starting 03/24/2024 until 03/24/2025 Fungal Culture Fungal Culture [facility] Work Phone: Fungal Smear Fungal Smear [facility] Work Phone: Giardia lamblia+Cryptosporidium sp Ag [Presence] in Stool by Immunoassay CRYPTOSPORIDIUM AND GIARDIA ANTIGENS BY EIA Microbiology Routine Diarrhea, unspecified type Ordered: 11/26/2023 [facility] Work Phone: Comment on above: Ordered: 11/26/2023 Hemoglobin [Presence ] in Urine [facility] INFLUENZA VACCINE QUADRIVALENT 6 MO - 64 YRS IM INFLUENZA VACCINE QUADRIVALENT 6 MO - 64 YRS IM Immunization/Injection Routine Need for influenza vaccination Ordered: 07/13/2022 [facility] Work Phone: Comment on above: Ordered: 07/13/2022 End: 07-30-2024 KID/URIAS REC POST TX DSA KID/URIAS REC POST TX DSA ALLOGEN Routine Kidney replaced by transplant Every 3 months for 4 Occurrences starting 07/31/2023 until 07/30/2024 [facility] Work Phone: Comment on above: Every 3 months for 4 Occurrences startin g 07/31/2023 until 07/30/2024 End: 09-24-2023 Lipid 1996 panel - Serum or Plasma LIPID PANEL BASIC Lab Routine Kidney replaced by transplant Every 6 months for 2 Occurrences starting 09/24/2022 until 09/24/2023 [facility] Work Phone: Comment on above: Every 6 months for 2 Occurrences startin g 09/24/2022 until 09/24/2023 End: 07-25-2024 Lipid 1996 panel - Serum or Plasma LIPID PANEL BASIC Lab Routine Kidney replaced by transplant High risk medication use Every 3 months for 50 Occurrences starting 07/25/2023 until 07/25/2024 [facility] Work Phone: Comment on above: Every 3 months for 50 Occurrences starti ng 07/25/2023 until 07/25/2024 Magnesium [Mass/volu me] in Serum or Plasma [facility] Work Phone: End: 06-08-2023 Magnesium [Mass/volume] in Serum or Plasma MAGNESIUM BLD Lab Routine Kidney replaced by transplant Once per month for 100 Occurrences starting 06/08/2022 until 06/08/2023, 1 completed [facility] Work Phone: Comment on above: Once per month for 100 Occurrences start ing 06/08/2022 until 06/08/2023, 1 completed End: 03-13-2024 Magnesium [Mass/volume] in Serum or Plasma MAGNESIUM BLD Lab Routine Encounter for aftercare following kidney transplant Once per week for 4 Occurrences starting 03/14/2023 until 03/13/2024 [facility] Work Phone: Comment on above: Once per week for 4 Occurrences starting 03/14/2023 until 03/13/2024 End: 07-15-2024 Magnesium [Mass/volume] in Serum or Plasma MAGNESIUM BLD Lab Routine Kidney replaced by transplant Once per month for 100 Occurrences starting 07/15/2023 until 07/15/2024 [facility] Work Phone: Comment on above: Once per month for 100 Occurrences start ing 07/15/2023 until 07/15/2024 End: 07-25-2024 Magnesium [Mass/volume] in Serum or Plasma MAGNESIUM BLD Lab Routine Kidney replaced by transplant High risk medication use Once per month for 99 Occurrences starting 07/25/2023 until 07/25/2024 [facility] Work Phone: Comment on above: Once per month for 99 Occurrences starti ng 07/25/2023 until 07/25/2024 Measurement of keton es in urine using dipstick [facility] Microscopic observat ion [Identifier] in Unspecified specimen by Gram stain Gram Stain [facility] Work Phone: Microscopic urinalysis [facility] Mycobacterium sp belkys ntified in Unspecified specimen by Organism specific culture [facility] Work Phone: Mycobacterium sp belkys ntified in Unspecified specimen by Organism specific culture [facility] End: 07-25-2024 Parathyrin.intact [Mass/volume] in Serum or Plasma PTH INTACT BLD Lab Routine Kidney replaced by transplant High risk medication use Vitamin D deficiency Every 3 months for 50 Occurrences starting 07/25/2023 until 07/25/2024 [facility] Work Phone: Comment on above: Every 3 months for 50 Occurrences starti ng 07/25/2023 until 07/25/2024 Patient Education [facility] Work Phone: Patient referral [facility] Work Phone: pH of Urine [facility] End: 06-08-2023 Phosphate [Mass/volume] in Serum or Plasma PHOSPHORUS INORGANIC Lab Routine Kidney replaced by transplant Once per month for 100 Occurrences starting 06/08/2022 until 06/08/2023, 1 completed [facility] Work Phone: Comment on above: Once per month for 100 Occurrences start ing 06/08/2022 until 06/08/2023, 1 completed End: 03-13-2024 Phosphate [Mass/volume] in Serum or Plasma PHOSPHORUS INORGANIC Lab Routine Encounter for aftercare following kidney transplant Once per week for 4 Occurrences starting 03/14/2023 until 03/13/2024 [facility] Work Phone: Comment on above: Once per week for 4 Occurrences starting 03/14/2023 until 03/13/2024 End: 07-15-2024 Phosphate [Mass/volume] in Serum or Plasma PHOSPHORUS INORGANIC Lab Routine Kidney replaced by transplant Once per month for 100 Occurrences starting 07/15/2023 until 07/15/2024 [facility] Work Phone: Comment on above: Once per month for 100 Occurrences start ing 07/15/2023 until 07/15/2024 End: 07-25-2024 Phosphate [Mass/volume] in Serum or Plasma PHOSPHORUS INORGANIC Lab Routine Kidney replaced by transplant High risk medication use Once per month for 99 Occurrences starting 07/25/2023 until 07/25/2024 [facility] Work Phone: Comment on above: Once per month for 99 Occurrences starti ng 07/25/2023 until 07/25/2024 Protein/Creatinine [ Mass Ratio] in Urine [facility] Work Phone: Protein/Creatinine [ Mass Ratio] in Urine PROTEIN CREATININE RATIO Lab Routine Kidney replaced by transplant 03/08/2022 4:08 PM EDT [facility] Work Phone: End: 02-26-2024 PVR LEG W/EXC ROLY VAS LAB PVR LEG W/EXC ROLY VAS LAB Vascular Lab Routine Left leg claudication (HCC) 1 Occurrences starting 02/25/2023 until 02/26/2024 [facility] Work Phone: Comment on above: 1 Occurrences starting 02/25/2023 until 02/26/2024 Specific gravity of Urine [facility] SURGICAL PATHOLOGY [facility] Work Phone: Comment on above: Release Upon Ordering for 1 Occurrences starting 04/01/2024, 1 completed Tacrolimus [Mass/vol ume] in Blood [facility] Work Phone: End: 06-08-2023 Tacrolimus [Mass/volume] in Blood TACROLIMUS/FK-506 BL Lab Routine Kidney replaced by transplant Once per month for 100 Occurrences starting 06/08/2022 until 06/08/2023, 1 completed [facility] Work Phone: Comment on above: Once per month for 100 Occurrences start ing 06/08/2022 until 06/08/2023, 1 completed End: 03-13-2024 Tacrolimus [Mass/volume] in Blood TACROLIMUS/FK-506 BL Lab Routine Encounter for aftercare following kidney transplant Once per week for 4 Occurrences starting 03/14/2023 until 03/13/2024 [facility] Work Phone: Comment on above: Once per week for 4 Occurrences starting 03/14/2023 until 03/13/2024 End: 07-15-2024 Tacrolimus [Mass/volume] in Blood TACROLIMUS/FK-506 BL Lab Routine Kidney replaced by transplant Once per month for 100 Occurrences starting 07/15/2023 until 07/15/2024 [facility] Work Phone: Comment on above: Once per month for 100 Occurrences start ing 07/15/2023 until 07/15/2024 End: 07-25-2024 Tacrolimus [Mass/volume] in Blood TACROLIMUS/FK-506 BL Lab Routine Kidney replaced by transplant High risk medication use Once per month for 99 Occurrences starting 07/25/2023 until 07/25/2024 [facility] Work Phone: Comment on above: Once per month for 99 Occurrences starti ng 07/25/2023 until 07/25/2024 End: 03-13-2024 Urinalysis complete panel - Urine URINALYSIS WITH MICROSCOPIC, REFLEX CULTURE Lab Routine Encounter for aftercare following kidney transplant Once per week for 4 Occurrences starting 03/14/2023 until 03/13/2024 [facility] Work Phone: Comment on above: Once per week for 4 Occurrences starting 03/14/2023 until 03/13/2024 Urinalysis, blood, qualitative [facility] Urine culture [facility] Urine culture [facility] Urine dipstick for glucose [facility] Urine dipstick for l eukocyte esterase [facility] Urine dipstick for nitrite [facility] Urine dipstick for protein [facility] Urine examination [facility] Urine microscopy: ep ithelial cells [facility] Urine Microscopy: wh ite cells [facility] Urobilinogen [Presen ce] in Urine [facility] End: 02-26-2024 US LEG VEIN DVT UNL VAS LAB US LEG VEIN DVT UNL VAS LAB Vascular Lab Routine Pain of right lower extremity 1 Occurrences starting 02/25/2023 until 02/26/2024 [facility] Work Phone: Comment on above: 1 Occurrences starting 02/25/2023 until 02/26/2024 Wound Culture Wound Culture [facility] Work Phone: [facility] Immunizations Immunization Date Immunization Notes Care Provider [facility] 06-18-2024 influenza, seasonal, injectable Amanda RUIZ Work Phone: [facility] 06-18-2024 influenza virus vaccine, unspecified formulation 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 [employer]OP[employer] Work Phone: [facility] 07-13-2023 influenza, injectabl e, quadrivalent, contains preservative Immunization [place] Work Phone: [facility] 07-13-2023 influenza virus vaccine, unspecified formulation 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 Zaida Gaston Work Phone: [facility] 12-29-2020 Covid (Moderna) Dr. Zaida xavier Work Phone: [facility] 12-08-2020 Covid (Moderna) Dr. Zaida xavier Work Phone: [facility] 12-06-2020 tuberculin skin test ; purified protein derivative solution, intradermal Zaida Gaston MD Work Phone: [facility] 11-24-2020 COVID-19 vaccine, fu ll dose (MODERNA) [facility] Work Phone: [facility] Work Phone: 06-09-2020 influenza virus vaccine, unspecified formulation [facility] Work Phone: [facility] Work Phone: 05-23-2020 influenza, seasonal, injectable [facility] Work Phone: [facility] Work Phone: 06-28-[address] Zaida Gaston Work Phone: [facility] 06-28-2019 influenza, seasonal, injectable, preservative free [facility] Work Phone: [facility] Work Phone: 03-16-2019 hepatitis B vaccine, adult dosage [facility] Work Phone: [facility] Work Phone: 11-17-2018 hepatitis B vaccine, adult dosage [facility] Work Phone: [facility] Work Phone: 10-21-2018 hepatitis B vaccine, adult dosage [facility] Work Phone: [facility] Work Phone: 09-22-2018 hepatitis B vaccine, adult dosage [facility] Work Phone: [facility] Work Phone: 06-24-2018 influenza, injectabl e, quadrivalent, preservative free Dr. Zaida Gaston Work Phone: [facility] 06-24-2018 influenza, seasonal, injectable Dr. Zaida Gaston Work Phone: [facility] 06-24-2018 influenza, seasonal, injectable, preservative free [facility] Work Phone: [facility] Work Phone: 05-19-2018 influenza, injectabl e, quadrivalent, contains preservative [facility] Work Phone: [facility] 07-23-[address] Zaida Gaston Work Phone: [facility] 07-23-2017 influenza, injectabl e, quadrivalent, contains preservative [facility] Work Phone: [facility] Work Phone: 07-23-2017 influenza, seasonal, injectable, preservative free [facility] Work Phone: [facility] Work Phone: 06-12-2016 influenza, injectabl e, quadrivalent, contains preservative [facility] Work Phone: [facility] Work Phone: 05-24-2015 tetanus toxoid, reduced diphtheria toxoid, and acellular pertussis vaccine, adsorbed [facility] Work Phone: [facility] Work Phone: 11-07-2012 pneumococcal polysaccharide vaccine, 23 valent [facility] Work Phone: [facility] Work Phone: NEGATED: Highlighted row has not occurred!07-13-2022 influenza, injectable, quadrivalent, contains preservative Zaida Gaston MD Work Phone: [facility] Work Phone: Comment on above: Deferred: OTHER - ve rified by Monik Chinchilla Payers Date Payer Category Payer Medicare (Managed Care) [facility] DUAL COMPLETE PPO SNP [id number] 2024 Unknown [id number] 2023 Self-pay [id number] 2023 Unknown [id number] 2022 Unknown [employer] MDCR ADV [employer] MCR ADV TRANSPLANT [id number] 2022-Present [phone] [address] [address] [place] [address] PPO [id number] 2021 Medicaid [id number] 2021 Medicare [id number] 2021 Unknown [id number] 2019 Medicare [id number] 2015 Medicare [id number] Unknown [id number] Unknown [id number] Unknown [id number] Unknown [id number] Unknown [id number] Unknown [id number] Unknown [id number] Unknown [id number] Unknown [id number] Social History Date Type Detail Facility Start: 09-30-2014 End: 08-13-2023 Tobacco smoking status NHIS Never smoked tobacco [facility] Start: 09-30-2014 End: 07-13-2022 Tobacco use and exposure User of smokeless tobacco [facility] History of tobacco use Snuff User [facility] Start: 12-08-2021 End: 02-05-2025 Alcohol intake Ex-drinker (finding) [facility] Start: 08-14-2020 End: 07-04-2022 History SDOH Alcohol Frequency 1 [facility] Start: 08-14-2020 History SDOH Alcohol Std Drinks 98 [facility] Start: 08-14-2020 End: 07-04-2022 History SDOH Social Connections Phone 2 [facility] Start: 08-14-2020 History SDOH Social Connections Living 8 [facility] Start: 08-14-2020 History SDOH Physical Activity DPW 0 [facility] Start: 08-14-2020 End: 08-25-2022 History SDOH Financial 3 [facility] Start: 08-14-2020 Education 12 [facility] Start: 09-30-2014 End: 07-13-2022 Tobacco Comment snuff x 33 years [facility] Start: 1970 Sex Assigned At Male [facility] Start: 11-14-2021 End: 08-03-2022 Exposure to SARS-CoV-2 (event) Not sure [facility] Start: 09-18-2021 End: 11-11-2023 Tobacco smoking status NHIS Unknown if ever smoked [facility] Start: 10-06-2019 None [facility] Start: 10-06-2019 Spouse/ Significant Other;With Family [facility] Start: 10-07-2019 Chew [facility] Start: 12-22-2021 End: 01-01-2022 Exposure to SARS-CoV-2 (event) Unable to assess [facility] Start: 08-24-2022 End: 01-17-2023 History of Social function [facility] Start: 08-24-2022 End: 01-17-2023 Social connection and isolation panel [facility] In a typical week, h ow many times do you talk on the telephone with family, friends, or neighbors? Patient refused [facility] Are you now , , , , never or living with a partner? Refused [facility] Do you feel stress - tense, restless, nervous, or anxious, or unable to sleep at night because your mind is troubled all the time - these days [OSQ] Not at all [facility] (I/We) worried anil er (my/our) food would run out before (I/we) got money to buy more. DK or Refused [facility] Start: 08-14-2020 Gender identity Identifies as male gender (finding) [facility] Start: 08-14-2020 Sexual orientation Heterosexual (finding) [facility] Start: 08-13-2023 Tobacco use and exposure Former smokeless tobacco user [facility] Start: 08-13-2023 Tobacco Comment snuff x 33 yearsQuit in 2020 [facility] Do you belong to any clubs or organizations such as voodoo groups, unions, fraternal or athletic groups, or school groups? No [facility] Are you now , , , , never or living with a partner? Living with partner [facility] How often to you hav e a drink containing alcohol? Monthly or less [facility] How many standard dr inks containing alcohol do you have on a typical day? 1 or 2 [facility] How often do you hav e 6 or more drinks on 1 occasion? Never [facility] Do you feel stress - tense, restless, nervous, or anxious, or unable to sleep at night because your mind is troubled all the time - these days [OSQ] To some extent [facility] Start: 07-22-2024 Sexual orientation Choose not to disclose [facility] Start: 11-19-2024 Sex Male (finding) [facility] Medical Equipment Procedure Code Equipment Code Equipment Original Text Equipment Identifier Dates Insertion, catheter, hemodialysis CATHETER, CVD PLNDRME 19CM FDA Start: 08-27-2018 Insertion, catheter, hemodialysis CATHETER, CVD PLNDRME 19CM FDA Start: 08-27-2018 Insertion, catheter, hemodialysis CATHETER, CVD PLNDRME 19CM FDA Start: 08-27-2018 Insertion, catheter, hemodialysis CATHETER, CVD PLNDRME 19CM FDA Start: 08-27-2018 Insertion, catheter, hemodialysis CATHETER, CVD PLNDRME 19CM FDA Start: 08-27-2018 Insertion, catheter, hemodialysis CATHETER, CVD PLNDRME 19CM FDA Start: 08-27-2018 Insertion, catheter, hemodialysis CATHETER, CVD PLNDRME 19CM FDA Start: 08-27-2018 Insertion, catheter, hemodialysis CATHETER, CVD PLNDRME 19CM FDA Start: 08-27-2018 Insertion, catheter, hemodialysis CATHETER, CVD PLNDRME 19CM FDA Start: 08-27-2018 Insertion, catheter, hemodialysis CATHETER, CVD PLNDRME 19CM FDA Start: 08-27-2018 Insertion, catheter, hemodialysis CATHETER, CVD PLNDRME 19CM FDA Start: 08-27-2018 Insertion, catheter, hemodialysis CATHETER, CVD PLNDRME 19CM FDA Start: 08-27-2018 Insertion, catheter, hemodialysis CATHETER, CVD PLNDRME 19CM FDA Start: 08-27-2018 Insertion, catheter, hemodialysis CATHETER, CVD PLNDRME 19CM FDA Start: 08-27-2018 Insertion, catheter, hemodialysis CATHETER, CVD PLNDRME 19CM FDA Start: 08-27-2018 Insertion, catheter, hemodialysis CATHETER, CVD PLNDRME 19CM FDA Start: 08-27-2018 Insertion, catheter, hemodialysis CATHETER, CVD PLNDRME 19CM FDA Start: 08-27-2018 Insertion, catheter, hemodialysis CATHETER, CVD PLNDRME 19CM FDA Start: 08-27-2018 Insertion, catheter, hemodialysis CATHETER, CVD PLNDRME 19CM FDA Start: 08-27-2018 Insertion, catheter, hemodialysis CATHETER, CVD PLNDRME 19CM FDA Start: 08-27-2018 Insertion, catheter, hemodialysis CATHETER, CVD PLNDRME 19CM FDA Start: 08-27-2018 Insertion, catheter, hemodialysis CATHETER, CVD PLNDRME 19CM FDA Start: 08-27-2018 Insertion, catheter, hemodialysis CATHETER, CVD PLNDRME 19CM FDA Start: 08-27-2018 Insertion, catheter, hemodialysis CATHETER, CVD PLNDRME 19CM FDA Start: 08-27-2018 Insertion, catheter, hemodialysis CATHETER, CVD PLNDRME 19CM FDA Start: 08-27-2018 Stent Inlay [place] 4.7fr Taper [place] Green Polymer Phreecoat 14cm Ureteral - [id number] Start: 03-09-2021 [id number], [id number], [id number], [id number], [id number] Start: 04-26-2021 End: 07-28-2024 Comment on above: TEST BLOOD SUGAR 3 T IMES PER DAY. DX: 250.E11.9. INSULIN DEP: yes One Touch Verio pref erred - Kit - Dx E11.8 Insulin Dependent, Test blood sugar three times a day Use as directed four times daily Test Blood Sugar 3 x /day. Dx E11.8 Insulin Dependent, One Touch Verio brand preferred 1 Each as needed. Fo r Intercavernal Injections SUTURE,LIGA CLIP MED LT200 FDA Start: 08-08-2018 SUTURE,LIGA CLIP MED LT200 FDA Start: 08-08-2018 SUTURE,LIGA CLIP SM LT-100 FDA Start: 08-08-2018 SUTURE,LIGA CLIP SM LT-100 FDA Start: 08-08-2018 SUTURE,LIGA CLIP SM LT-100 FDA Start: 08-08-2018 SUTURE,LIGA CLIP SM LT-100 FDA Start: 08-08-2018 SUTURE,LIGA CLIP MED LT200 FDA Start: 08-08-2018 SUTURE,LIGA CLIP MED LT200 FDA Start: 08-08-2018 SUTURE,LIGA CLIP SM LT-100 FDA Start: 08-08-2018 SUTURE,LIGA CLIP SM LT-100 FDA Start: 08-08-2018 SUTURE,LIGA CLIP SM LT-100 FDA Start: 08-08-2018 SUTURE,LIGA CLIP SM LT-100 FDA Start: 08-08-2018 SUTURE,LIGA CLIP MED LT200 FDA Start: 08-08-2018 SUTURE,LIGA CLIP MED LT200 FDA Start: 08-08-2018 SUTURE,LIGA CLIP SM LT-100 FDA Start: 08-08-2018 SUTURE,LIGA CLIP SM LT-100 FDA Start: 08-08-2018 SUTURE,LIGA CLIP SM LT-100 FDA Start: 08-08-2018 SUTURE,LIGA CLIP SM LT-100 FDA Start: 08-08-2018 SUTURE,LIGA CLIP MED LT200 FDA Start: 08-08-2018 SUTURE,LIGA CLIP MED LT200 FDA Start: 08-08-2018 SUTURE,LIGA CLIP SM LT-100 FDA Start: 08-08-2018 SUTURE,LIGA CLIP SM LT-100 FDA Start: 08-08-2018 SUTURE,LIGA CLIP SM LT-100 FDA Start: 08-08-2018 SUTURE,LIGA CLIP SM LT-100 FDA Start: 08-08-2018 SUTURE,LIGA CLIP MED LT200 FDA Start: 08-08-2018 SUTURE,LIGA CLIP MED LT200 FDA Start: 08-08-2018 SUTURE,LIGA CLIP SM LT-100 FDA Start: 08-08-2018 SUTURE,LIGA CLIP SM LT-100 FDA Start: 08-08-2018 SUTURE,LIGA CLIP SM LT-100 FDA Start: 08-08-2018 SUTURE,LIGA CLIP SM LT-100 FDA Start: 08-08-2018 SUTURE,LIGA CLIP MED LT200 FDA Start: 08-08-2018 SUTURE,LIGA CLIP MED LT200 FDA Start: 08-08-2018 SUTURE,LIGA CLIP SM LT-100 FDA Start: 08-08-2018 SUTURE,LIGA CLIP SM LT-100 FDA Start: 08-08-2018 SUTURE,LIGA CLIP SM LT-100 FDA Start: 08-08-2018 SUTURE,LIGA CLIP SM LT-100 FDA Start: 08-08-2018 SUTURE,LIGA CLIP MED LT200 FDA Start: 08-08-2018 SUTURE,LIGA CLIP MED LT200 FDA Start: 08-08-2018 SUTURE,LIGA CLIP SM LT-100 FDA Start: 08-08-2018 SUTURE,LIGA CLIP SM LT-100 FDA Start: 08-08-2018 SUTURE,LIGA CLIP SM LT-100 FDA Start: 08-08-2018 SUTURE,LIGA CLIP SM LT-100 FDA Start: 08-08-2018 SUTURE,LIGA CLIP MED LT200 FDA Start: 08-08-2018 SUTURE,LIGA CLIP MED LT200 FDA Start: 08-08-2018 SUTURE,LIGA CLIP SM LT-100 FDA Start: 08-08-2018 SUTURE,LIGA CLIP SM LT-100 FDA Start: 08-08-2018 SUTURE,LIGA CLIP SM LT-100 FDA Start: 08-08-2018 SUTURE,LIGA CLIP SM LT-100 FDA Start: 08-08-2018 SUTURE,LIGA CLIP MED LT200 FDA Start: 08-08-2018 SUTURE,LIGA CLIP MED LT200 FDA Start: 08-08-2018 SUTURE,LIGA CLIP SM LT-100 FDA Start: 08-08-2018 SUTURE,LIGA CLIP SM LT-100 FDA Start: 08-08-2018 SUTURE,LIGA CLIP SM LT-100 FDA Start: 08-08-2018 SUTURE,LIGA CLIP SM LT-100 FDA Start: 08-08-2018 SUTURE,LIGA CLIP MED LT200 FDA Start: 08-08-2018 SUTURE,LIGA CLIP MED LT200 FDA Start: 08-08-2018 SUTURE,LIGA CLIP SM LT-100 FDA Start: 08-08-2018 SUTURE,LIGA CLIP SM LT-100 FDA Start: 08-08-2018 SUTURE,LIGA CLIP SM LT-100 FDA Start: 08-08-2018 SUTURE,LIGA CLIP SM LT-100 FDA Start: 08-08-2018 SUTURE,LIGA CLIP MED LT200 FDA Start: 08-08-2018 SUTURE,LIGA CLIP MED LT200 FDA Start: 08-08-2018 SUTURE,LIGA CLIP SM LT-100 FDA Start: 08-08-2018 SUTURE,LIGA CLIP SM LT-100 FDA Start: 08-08-2018 SUTURE,LIGA CLIP SM LT-100 FDA Start: 08-08-2018 SUTURE,LIGA CLIP SM LT-100 FDA Start: 08-08-2018 SUTURE,LIGA CLIP MED LT200 FDA Start: 08-08-2018 SUTURE,LIGA CLIP MED LT200 FDA Start: 08-08-2018 SUTURE,LIGA CLIP SM LT-100 FDA Start: 08-08-2018 SUTURE,LIGA CLIP SM LT-100 FDA Start: 08-08-2018 SUTURE,LIGA CLIP SM LT-100 FDA Start: 08-08-2018 SUTURE,LIGA CLIP SM LT-100 FDA Start: 08-08-2018 SUTURE,LIGA CLIP MED LT200 FDA Start: 08-08-2018 SUTURE,LIGA CLIP MED LT200 FDA Start: 08-08-2018 SUTURE,LIGA CLIP SM LT-100 FDA Start: 08-08-2018 SUTURE,LIGA CLIP SM LT-100 FDA Start: 08-08-2018 SUTURE,LIGA CLIP SM LT-100 FDA Start: 08-08-2018 SUTURE,LIGA CLIP SM LT-100 FDA Start: 08-08-2018 SUTURE,LIGA CLIP MED LT200 FDA Start: 08-08-2018 SUTURE,LIGA CLIP MED LT200 FDA Start: 08-08-2018 SUTURE,LIGA CLIP SM LT-100 FDA Start: 08-08-2018 SUTURE,LIGA CLIP SM LT-100 FDA Start: 08-08-2018 SUTURE,LIGA CLIP SM LT-100 FDA Start: 08-08-2018 SUTURE,LIGA CLIP SM LT-100 FDA Start: 08-08-2018 SUTURE,LIGA CLIP MED LT200 FDA Start: 08-08-2018 SUTURE,LIGA CLIP MED LT200 FDA Start: 08-08-2018 SUTURE,LIGA CLIP SM LT-100 FDA Start: 08-08-2018 SUTURE,LIGA CLIP SM LT-100 FDA Start: 08-08-2018 SUTURE,LIGA CLIP SM LT-100 FDA Start: 08-08-2018 SUTURE,LIGA CLIP SM LT-100 FDA Start: 08-08-2018 SUTURE,LIGA CLIP MED LT200 FDA Start: 08-08-2018 SUTURE,LIGA CLIP MED LT200 FDA Start: 08-08-2018 SUTURE,LIGA CLIP SM LT-100 FDA Start: 08-08-2018 SUTURE,LIGA CLIP SM LT-100 FDA Start: 08-08-2018 SUTURE,LIGA CLIP SM LT-100 FDA Start: 08-08-2018 SUTURE,LIGA CLIP SM LT-100 FDA Start: 08-08-2018 SUTURE,LIGA CLIP MED LT200 FDA Start: 08-08-2018 SUTURE,LIGA CLIP MED LT200 FDA Start: 08-08-2018 SUTURE,LIGA CLIP SM LT-100 FDA Start: 08-08-2018 SUTURE,LIGA CLIP SM LT-100 FDA Start: 08-08-2018 SUTURE,LIGA CLIP SM LT-100 FDA Start: 08-08-2018 SUTURE,LIGA CLIP SM LT-100 FDA Start: 08-08-2018 SUTURE,LIGA CLIP MED LT200 FDA Start: 08-08-2018 SUTURE,LIGA CLIP MED LT200 FDA Start: 08-08-2018 SUTURE,LIGA CLIP SM LT-100 FDA Start: 08-08-2018 SUTURE,LIGA CLIP SM LT-100 FDA Start: 08-08-2018 SUTURE,LIGA CLIP SM LT-100 FDA Start: 08-08-2018 SUTURE,LIGA CLIP SM LT-100 FDA Start: 08-08-2018 SUTURE,LIGA CLIP MED LT200 FDA Start: 08-08-2018 SUTURE,LIGA CLIP MED LT200 FDA Start: 08-08-2018 SUTURE,LIGA CLIP SM LT-100 FDA Start: 08-08-2018 SUTURE,LIGA CLIP SM LT-100 FDA Start: 08-08-2018 SUTURE,LIGA CLIP SM LT-100 FDA Start: 08-08-2018 SUTURE,LIGA CLIP SM LT-100 FDA Start: 08-08-2018 SUTURE,LIGA CLIP MED LT200 FDA Start: 08-08-2018 SUTURE,LIGA CLIP MED LT200 FDA Start: 08-08-2018 SUTURE,LIGA CLIP SM LT-100 FDA Start: 08-08-2018 SUTURE,LIGA CLIP SM LT-100 FDA Start: 08-08-2018 SUTURE,LIGA CLIP SM LT-100 FDA Start: 08-08-2018 SUTURE,LIGA CLIP SM LT-100 FDA Start: 08-08-2018 SUTURE,LIGA CLIP MED LT200 FDA Start: 08-08-2018 SUTURE,LIGA CLIP MED LT200 FDA Start: 08-08-2018 SUTURE,LIGA CLIP SM LT-100 FDA Start: 08-08-2018 SUTURE,LIGA CLIP SM LT-100 FDA Start: 08-08-2018 SUTURE,LIGA CLIP SM LT-100 FDA Start: 08-08-2018 SUTURE,LIGA CLIP SM LT-100 FDA Start: 08-08-2018 SUTURE,LIGA CLIP MED LT200 FDA Start: 08-08-2018 SUTURE,LIGA CLIP MED LT200 FDA Start: 08-08-2018 SUTURE,LIGA CLIP SM LT-100 FDA Start: 08-08-2018 SUTURE,LIGA CLIP SM LT-100 FDA Start: 08-08-2018 SUTURE,LIGA CLIP SM LT-100 FDA Start: 08-08-2018 SUTURE,LIGA CLIP SM LT-100 FDA Start: 08-08-2018 SUTURE,LIGA CLIP MED LT200 FDA Start: 08-08-2018 SUTURE,LIGA CLIP MED LT200 FDA Start: 08-08-2018 SUTURE,LIGA CLIP SM LT-100 FDA Start: 08-08-2018 SUTURE,LIGA CLIP SM LT-100 FDA Start: 08-08-2018 SUTURE,LIGA CLIP SM LT-100 FDA Start: 08-08-2018 SUTURE,LIGA CLIP SM LT-100 FDA Start: 08-08-2018 SUTURE,LIGA CLIP MED LT200 FDA Start: 08-08-2018 SUTURE,LIGA CLIP MED LT200 FDA Start: 08-08-2018 SUTURE,LIGA CLIP SM LT-100 FDA Start: 08-08-2018 SUTURE,LIGA CLIP SM LT-100 FDA Start: 08-08-2018 SUTURE,LIGA CLIP SM LT-100 FDA Start: 08-08-2018 SUTURE,LIGA CLIP SM LT-100 FDA Start: 08-08-2018 SUTURE,LIGA CLIP MED LT200 FDA Start: 08-08-2018 SUTURE,LIGA CLIP MED LT200 FDA Start: 08-08-2018 SUTURE,LIGA CLIP SM LT-100 FDA Start: 08-08-2018 SUTURE,LIGA CLIP SM LT-100 FDA Start: 08-08-2018 SUTURE,LIGA CLIP SM LT-100 FDA Start: 08-08-2018 SUTURE,LIGA CLIP SM LT-100 FDA Start: 08-08-2018 Goals Date Patient Goal Desired Activity /State Personal health goal Personal health goal Personal health goal Comment on above: Formatting of this n ote might be different from the original. To get a kidney transplant Comment on above: Formatting of this n ote might be different from the original. To get a kidney transplant Functional Status Date Assessment Result Facility 01-29-2025 Are you deaf, or do you have serious difficulty hearing No 01/29/2025 3:51 PM Elisabeth Rico RN No [facility] 01-29-2025 Are you blind, or do you have serious difficulty seeing, even when wearing glasses Yes 01/29/2025 3:51 PM Elisabeth Rico, RN Yes [facility] 01-29-2025 Do you have serious difficulty walking or climbing stairs Yes 01/29/2025 3:51 PM Elisabeth Rico, RN Yes [facility] 01-29-2025 Do you have difficul ty dressing or bathing No 01/29/2025 3:51 PM Elisabeth Rico, RN No [facility] 01-29-2025 Because of a physica l, mental, or emotional condition, do you have difficulty doing errands alone such as visiting a physician's office or shopping Yes 01/29/2025 3:51 PM Elisabeth Rico, RN Yes [facility] 11-05-2022 Functional status [facility] Work Phone: 03-28-2022 Functional status [facility]ulates;Bath room Privilege [facility] Work Phone: 09-20-2021 Functional status [employer] [facility] Work Phone: 03-12-2021 Are you deaf, or do you have serious difficulty hearing No 03/12/2021 9:19 AM Yareli Hester RN No [facility] 03-12-2021 Are you blind, or do you have serious difficulty seeing, even when wearing glasses No 03/12/2021 9:19 AM Yareli Hester RN No [facility] 03-12-2021 Do you have serious difficulty walking or climbing stairs No 03/12/2021 9:19 AM Yareli Hester RN No [facility] 03-12-2021 Do you have difficul ty dressing or bathing No 03/12/2021 9:19 AM Yareli Hester RN No [facility] 03-12-2021 Because of a physica l, mental, or emotional condition, do you have difficulty doing errands alone such as visiting a physician's office or shopping No 03/12/2021 9:19 AM Yareli Hester RN No [facility] Mental Status Date Assessment Result Facility 01-29-2025 Because of a physica l, mental, or emotional condition, do you have serious difficulty concentrating, remembering, or making decisions No 01/29/2025 3:51 PM Elisabeth Rico, RN No [facility] 01-26-2025 Cognitive function Level Of Cons ciousness Awake;Alert;Appropriate;Fol lows Commands [facility] Work Phone: 11-19-2024 Cognitive function Voice/Name [facility] Work Phone: 03-13-2023 Cognitive function Level Of Cons ciousness Awake;Alert;Follows Commands [facility] Work Phone: 11-04-2022 Cognitive function Voice/Name [facility] Work Phone: 08-28-2022 Cognitive function Level Of Cons ciousness Awake;Alert;Appropriate;Fol lows Commands [facility] Work Phone: 03-28-2022 Cognitive function Voice/Name [facility] Work Phone: 09-20-2021 Cognitive function Voice/Name [facility] Work Phone: 09-14-2021 Cognitive function Level Of Cons ciousness Awake;Alert;Appropriate;Fol lows Commands [facility] Work Phone: 03-12-2021 Because of a physica l, mental, or emotional condition, do you have serious difficulty concentrating, remembering, or making decisions No 03/12/2021 9:19 AM EDT Yareli Sevilla RN No [facility] Clinical Notes 11-26-2017 to 03-15-2025 Telephone Encounter - Polina Molina RN - 03/15/2025 10:47 AM EDTTelephone Encounter - Polina Molina RN - 03/15/2025 10:47 AM EDTTelephone Encounter - 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 APRN.CNP - 03/15/2025 7:20 AM EDT Note Date & Type Note Facility 03-15-2025 Telephone encounter Note Tried calling patient to follow up regarding medications/immunosuppressants but no answer, left voicemail for both patient Italo Burgos and alternate contact Laura Amin to call the Kidney Transplant Office back. Polina Molina RN [facility] 03-15-2025 Miscellaneous Notes Tried calling patient to follow up regarding medications/immunosuppressants but no answer, left voicemail for both patient Italo Burgos and alternate contact Laura Amin to call the Kidney Transplant Office back. Polina Molina, RN documented in this encounter [facility] 03-15-2025 Telephone encounter Note Med refills needed. Not taking medications consistently so restarting bupropion at lower dose. 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 APRN.CNP [facility] 03-15-2025 Miscellaneous Notes Med refills needed. Not taking medications consistently so restarting bupropion at lower dose. 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 APRN.CNP documented in this encounter [facility] 03-10-2025 Radiology Diagnostic study note [facility] Imaging Services [address], [place] [address] Abdomen/Pelvis without Cont MR#: [id number] Acct: [id number] Name: ITALO BURGOS Rep #: [id number] : [id number] M [id number] From: Zuleyka Solis MD PCP: Dr. Zaida Gaston MD Status: REG E R Study:Abdomen/Pelvis without Cont Date of Exa m: 03/10/25 Exam# [id number] Ordering Dr: Byron Saldana DO EXAM: CT Abdomen and Pelvis Without Intravenous Contrast CLINICAL INDICATION: FLANK PAIN TECHNIQUE: Axial computed tomography images of the abdomen and pelvis without intravenous contrast. This CT exam was performed using one or more of the following dose reduction techniques: automated exposure control, adjustment of the mA and/or kV according to patient size, and/or use of iterative reconstruction technique. COMPARISON: CT Abdomen Pelvis dated 01/26/2025 FINDINGS: LUNG BASES: Unremarkable. No mass. No consolidation. MEDIASTINUM: Small esophageal hiatal hernia. ABDOMEN: LIVER: Hepatomegaly with fatty infiltration. GALLBLADDER AND BILE DUCTS: Gallbladder is surgically absent. No ductal dilation. PANCREAS: Unremarkable. No ductal dilation. SPLEEN: Unremarkable. No splenomegaly. ADRENALS: Unremarkable. No mass. KIDNEYS AND URETERS: Transplant kidney in the right lower abdominal quadrant with external nephrostomy tube. Mild hydronephrosis in the setting of an obstructive calculus in the mid ureter measuring up to 9 mm. STOMACH AND BOWEL: Fecal retention in the colon consistent with constipation. No obstruction. No mucosal thickening. PELVIS: APPENDIX: No findings to suggest acute appendicitis. BLADDER: Bladder wall thickening which may be due to the decompressed state of the bladder or due to cystitis. No stones. REPRODUCTIVE: Unremarkable as visualized. ABDOMEN and PELVIS: INTRAPERITONEAL SPACE: Unremarkable. No free air. No significant fluid collection. BONES/JOINTS: No acute fracture. No dislocation. SOFT TISSUES: Unremarkable. VASCULATURE: Unremarkable. No abdominal aortic aneurysm. LYMPH NODES: Unremarkable. No enlarged lymph nodes. CT/Abdomen/Pelvis without Cont IMPRESSION: 1. Transplant kidney in the right lower abdominal quadrant with external nephrostomy tube. Mild hydronephrosis in the setting of an obstructive calculus in the mid ureter measuring up to 9 mm. 2. Bladder wall thickening which may be due to the decompressed state of the bladder or due to cystitis. 3. Small esophageal hiatal hernia. 4. Hepatomegaly with fatty infiltration. 5. Fecal retention in the colon consistent with constipation. Reading Location: [facility] CC: Dr. Zaida Gaston MD; Dr. Byron Saldana, DO ~ Tutorial Laboratory Supervisor: Signed [facility] 03-08-2025 Telephone encounter Note Had a return call from nurse, Xiang. She reported the following: - Pt last seen by Dr. Durand in July 2024 - A1c was 8.5% - F/up visit was scheduled for 12/03/24 and he no-showed. Outreach letter was sent. Currently listed as no follow-up. - Did confirm he was on Trulicity 4.5mg, had 90 DS and 1 refill. - Only other med at that time was Humalog 50/50 mix: 40 units with breakfast and lunch and 60 units with supper. - Hx of taking metformin and Invokana, [id number], was discontinued but uncertain why. - Previously was on basal/bolus insulin, switched because of hypoglycemia - Endo diagnosis is T2DM per charts though nurse couldn't find labs confirming this. Endo does not have any documentation of him being T1DM (first seen in 2018) Will send as FYI to PCP and also suggest getting Dm dx labs ordered. Verna Jensen PharmD, [facility] Primary [facility] Clinical Pharmacist [facility] Work Phone: 03-08-2025 Miscellaneous Notes Had a return call from nurse, Xiang. She reported the following: - Pt last seen by Dr. Durand in July 2024 - A1c was 8.5% - F/up visit was scheduled for 12/03/24 and he no-showed. Outreach letter was sent. Currently listed as no follow-up. - Did confirm he was on Trulicity 4.5mg, had 90 DS and 1 refill. - Only other med at that time was Humalog 50/50 mix: 40 units with breakfast and lunch and 60 units with supper. - Hx of taking metformin and Invokana, [id number], was discontinued but uncertain why. - Previously was on basal/bolus insulin, switched because of hypoglycemia - Endo diagnosis is T2DM per charts though nurse couldn't find labs confirming this. Endo does not have any documentation of him being T1DM (first seen in 2018) Will send as FYI to PCP and also suggest getting Dm dx labs ordered. Verna Jensen PharmD, [facility] Primary [facility] Clinical Pharmacist Rachel called park activities coordinator Dr. Steve Durand's office ([phone]) to confirm dx of T1 vs T2 and to also confirm Trulicity dose and any past DM medications. LMOM for nurse for someone to call me back. Can see office note from 03/08 for more detail. Verna Jensen PharmD, [facility] Primary [facility] Clinical Pharmacist documented in this encounter [facility] 03-08-2025 Telephone encounter Note PharmD called park activities coordinator Dr. Steve Durand's office ([phone]) to confirm dx of T1 vs T2 and to also confirm Trulicity dose and any past DM medications. LMOM for nurse for someone to call me back. Can see office note from 03/08 for more detail. Verna Jensen PharmD, [facility] Primary Care Clinical Pharmacist [facility] 03-08-2025 History of Presen t illness Narrative Primary Care Pharmacy Visit CC (Reason for Consult): Diabetes (E10.9) Type 1 diabetes mellitus on insulin therapy (HCC) (primary encounter diagnosis) Goal: A1c < 7% Last Collaborating Provider Visit: 02/05/25 Italo Burgos is a 54 year old male presenting for initial visit: This initial consult was conducted telephone call with the patient where the consult agreement was explained. The patient may decline or cancel the agreement at any time. After consideration, the patient consented to the pharmacy consult agreement and agreed to allow medications be collaboratively managed by a pharmacist. Interim Events: 01/27: hospitalized for nephrolithiasis, nephrostomy tube placed 02/05: PCP referred to PharmD for DM mngt; Lexapro started 02/07: hospitalized for urine bag leaking 02/11: appt with kidney transplant team 02/25: surgery on kidney HPI: Patient reports having Type 2 diabetes (problem list indicates T1DM). Reports last appt with Dr. Durand (park activities coordinator) was 2 months ago. Says no med changes were made and not sure when next follow-up is scheduled. No specific questions or concerns today. He thinks DM control is going good. Reports he is currently homeless, living [place] Working towards getting an apartment. Does have refrigerator access for insulin. Denies any cost issues. All medications are free. Personal goals: get A1c down (would like to be <8.5%) so he feels better. Energy level is poor. Pees a lot at night, waking up 3-4x/night to urinate. No issues with dry mouth or thirst. No vision changes. Denies any numbness or tingling in hands or feet. Largest meal is lunchtime but he sees the largest spike on Dexcom after breakfast. Current DM Medications: Insulin 50/50 lispro protamine-lispro (Humalog Mix 50/50) 30 units once daily at bedtime (confirmed he is taking 40 units with breakfast and lunch and 50 units with dinner (3 injections/day)) Trulicity on (uncertain of dose; confident he is taking) CGM Data Dexcom G7 *Pt was able to review Averages but then custom home installer turned off No issues with lows Date range Overall AVG 12a-6a 6a-12p 12p-6p 6p-12a TIME IN RANGE 7 day 220 ABOVE 14 day 199 IN (70-180) 30 day BELOW 90 day Preventative Medications: On TOM/ARB: No On Statin: No ROS: Patient denies CP, SOB, VELASCO, blurred vision, dizziness or lightheadedness Patient denies symptoms of hypoglycemia (sweating, anxiety, palpitations, hunger, and tremor) Patient reports symptoms of hyperglycemia (polyuria, fatigue) Patient denies potential medication adverse effects DIET/EXERCISE/SOCIAL Hx: Meals at [facility] include beans, chicken, spaghetti. All meals provided by the home. Breakfast: oatmeal, toast, fruit; only other option available is sugary cereal; drinks 1 glass of milk Lunch: if eats tacos, will eat just the meat and not the bread or tortilla Dinner: yesterday had chicken and baked beans Snacks: will sometimes snack on crackers (options available include cookies, fruit, crackers) Beverages: water; glass of milk with breakfast Exercise: no exercise; minimal physical activity; walks outside 20-25 mins/day Tobacco: none Alcohol: none Illicits: none MEDICATIONS: Pill bottles are not present. Adherence: denies missed doses. Pharmacy: [facility] [place] [address] [phone] [facility] [phone] [id number] Rx coverage: Payor: [facility] MEDICARE / Plan: [facility] DUAL COMPLETE PPO SNP / Product Type: PPO / Medications affordable? Yes Diabetes Supplies: Yes Organization system: pill box, fills weekly on Saturday afternoons ACTIVE PROBLEM LIST Uncontrolled Type 2 Diabetes Mellitus With Complication, With Long-Term Current Use of Insulin Hypertension Goal Bp (Blood Pressure) < 140/90 Other Hyperlipidemia Ed (Erectile Dysfunction) Lower Urinary Tract Symptoms (Luts) History of Kidney Stones Microscopic Hematuria Diabetic Polyneuropathy Associated With Type 2 Diabetes Mellitus ([facility]) Nausea Vomiting Moderate Episode of Recurrent Major Depressive Disorder ([facility]) Stage 3a Chronic Kidney Disease ([facility]) Right Leg Weakness Gait Instability Kidney Transplant Recipient ([facility]) Type 1 Diabetes Mellitus On Insulin Therapy ([facility]) 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) ([facility]) Diarrhea Encounter for Monitoring Tacrolimus Therapy Immunosuppressive Management Encounter Following Kidney Transplant ([facility]) Nephrolithiasis PAST MEDICAL HISTORY Diagnosis Date Acute diastolic (congestive) heart failure ([facility]) Bronchitis Chronic kidney failure, stage 4 (severe) ([facility]) 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 ([facility]) 12/16/2018 Depression Detached retina DM type 2, goal HbA1c < 7% ([facility]) Erectile dysfunction, unspecified erectile dysfunction type ESRD (end stage renal disease) ([facility]) GERD (gastroesophageal reflux disease) Hyperlipidemia Kidney replaced by transplant ([facility]) Kidney stones LUANNE (obstructive sleep apnea) PNA (pneumonia) Proliferative retinopathy 02/10/2019 PTE (post-transplant erythrocytosis) Snoring Unspecified essential hypertension Vitamin D deficiency Vitamin D deficiency Past medical history reviewed. ALLERGIES No Known Allergies Medication List Medication Directions Comments Action/Plan aspirin 81 mg chewable tablet chew and swallow 1 tablet by mouth once daily. Taking QAM; buys OTC Will ask PCP to send in an RX to see if can get filled for free buPROPion (WELLBUTRIN) 75 mg tablet Take 1 tablet by mouth once daily. Reports taking QAM but not on external fill hx; pt denies having therapist/psychiatrist Last script was from 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 on 07/13/24; [place] [facility] reports last fill was January 2024; [facility]; pt denies getting meds from anywhere else buPROPion XL (WELLBUTRIN XL) 300 mg 24 hr tablet Take 1 tablet by mouth once daily. Reports taking QAM but not on external fill hx Last script was from 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 on 07/13/24; no fill hx per [place] or [facility] pharmacy carvedilol (COREG) 12.5 mg tablet Take 1 tablet by mouth two times a day. Taking BID Cholestyramine, Bulk, powd Take one(1) scoop dissolved in two(2) to six(6) ounces(oz) of fluid by mouth daily. Reports taking 1 scoop 3x/day when he eats to help with diarrhea; not on external fill hx Updated med list; last filled at [facility] in June 2024; script at [facility] was never filled ergocalciferol 50,000 unit capsule (VITAMIN D2, DRISDOL) Take 1 capsule by mouth one time a week. Reports taking every Saturday; not on external fill hx Last script was from [facility] on 07/22/23; not filled in past couple years from either pharmacy escitalopram oxalate (LEXAPRO) 10 mg tablet Take 1 tablet by mouth once daily. Taking QAM FLUoxetine (PROZAC) 10 mg capsule Take 1 capsule by mouth once daily. Reports taking QAM fluticasone (FLONASE) 50 mcg/actuation nasal spray Use 2 Sprays in each nostril once daily. Taking PRN gabapentin (NEURONTIN) 100 mg capsule Take 1 capsule by mouth daily at bedtime for 180 days. Taking QAM; not on external fill hx; reports needing refill [facility] last filled in June 2024; no recent fills from [facility] pharmacy glucagon 3 mg/actuation nasal spray (BAQSIMI) Use 1 [place] in the nose as needed for low blood sugar. May repeat after 15 minutes using a new device if there is no response. insulin 50/50 lispro protamine-lispro units/mL (HUMALOG MIX 50-50 KWIKPEN) 100 unit/mL (50-50) pen Inject 30 Units subcutaneously daily at bedtime. Reports taking 40 units with breakfast and lunch, 50 units with dinner; taking ~15 mins before meals loperamide (IMODIUM) 2 mg cap(s) Take 1 capsule by mouth four times a day as needed. Has for PRN use mycophenolate sodium DR (MYFORTIC) 180 mg EC tablet Take 2 tablets by mouth two times a day. Reports he was taking 2 tab/day but reports dose was recently decreased to 1 tab/day; he thinks he was taking 1 tablet BID prior to hospital stay on 02/25 but not confident Advised pt to continue taking med as is, PharmD will reach out to transplant team as high priority alerting them of current dosing to see if they need to change dose or order f/up labs pantoprazole DR (PROTONIX) 20 mg tablet Take 1 tablet by mouth once daily. Reports taking QAM; needs refill; not on external fill hx Last script was from 09/28/24 for 90 DS with 3 refills; informed pt so he can call and request refill predniSONE (DELTASONE) 5 mg tablet Take 1 tablet by mouth once daily. Taking QAM pseudoephedrine (SUDAFED) 30 mg tablet Take Four 4 (30 mg) Tablets for an erection lasting more than 2 hours. If not improved in 1 hour MUST go to ER Has for PRN use sulfamethoxazole-trimethoprim (BACTRIM) 400-80 mg per tablet Take 1 tablet by mouth every Saturday, Saturday, and Saturday. Reports taking as directed tacrolimus IR (PROGRAF) 1 mg capsule Take 1 capsule by mouth two times a day. Take one capsule at 6am and one capsule at 6pm Patient should start on January 30, 2025. Reports taking 1 capsule once daily; says it used to be BID but dose was decreased; thinks he was taking 2 caps daily until his procedure on 02/25 (but pt not confident) Advised pt to continue taking med as is, PharmD will reach out to transplant team as high priority alerting them of current dosing to see if they need to change dose or order f/up labs Rx meds not listed in EPIC: Reports taking Trulicity on ; not sure of dose (not on external fill hx) OTCs: none Herbals: none Exam: There were no vitals taken for this visit. Last 3 Encounter BP Readings: Date: BP: 02/05/2025 106/68 01/26/2025 147/81 12/30/2024 118/68 Wt: 82.3 kg (181 lb 6.4 oz) BMI: 27.59 kg/(m^2) LABS: Reviewed Lab Results Component Value Date HBA1C 10.7 01/01/2025 HBA1C 7.1 06/18/2024 HBA1C 10.5 11/26/2023 HBA1C 8.6 10/13/2022 HBA1C 10.6 07/13/2022 HBA1C 8.2 07/11/2021 HBA1C 7.5 03/23/2021 HBA1C 6.0 08/12/2020 CMP: Glucose 248 01/29/2025 BUN 38 01/29/2025 Creatinine 1.98 01/29/2025 Sodium 139 01/29/2025 Potassium 4.6 01/29/2025 Chloride 107 01/29/2025 CO2 Content, Venous 22 01/29/2025 Protein, Total 5.0 01/27/2025 Albumin 2.9 01/29/2025 Calcium 8.9 01/29/2025 Alkaline Phosphatase 100 01/27/2025 Bilirubin, Total 0.5 01/27/2025 AST 13 01/27/2025 ALT 11 01/27/2025 eGFR 39 Estimated Creatinine Clearance: 43.6 mL/min (A) (based on SCr of 1.98 mg/dL (H)). Lab Results Component Value Date CHOL 202 01/01/2025 CHOL 141 07/28/2021 LDL 120 01/01/2025 LDL 70 07/28/2021 HDL 48 01/01/2025 HDL 52 07/28/2021 TG 192 01/01/2025 TG 94 07/28/2021 The 10-year ASCVD risk score (Chan LIMA, et al., 2019) is: 10.1% Values used to calculate the score: Age: 54 years Sex: Male Is Non- : No Diabetic: Yes Tobacco smoker: No Systolic Blood Pressure: 106 mmHg Is BP treated: Yes HDL Cholesterol: 48 mg/dL Total Cholesterol: 202 mg/dL Albumin/Creat Ratio (mg/g) Date Value 01/01/2025 42 (H) PHARMACOTHERAPY ASSESSMENT/PLAN: 1. Type 1 diabetes mellitus on insulin therapy (HCC) - ICD9: 250.01, ICD10: E10.9 (primary diagnosis) A1c goal < 7%; uncontrolled (last A1c 10.7%); average BG elevated; unable to review TIR due to CGM custom home installer malfunction; no issues with lows; pt follows with Tali Durand; pt reports having T2DM though diagnosis code states T1DM; pt taking much higher insulin doses than recorded though no lows; pt recalls largest PPG spike occurs after breakfast so will increase breakfast insulin dose; pt resides in a home for homeless people - reports having refrigeration for medications, meals 3x/day, and easy access to medications (denies affordability or transportation issues); pt reports taking Trulicity consistently though pharmacy fill hx suggests nonadherence; pt taking higher insulin dose than prescribed INCREASE breakfast insulin dose to 46 units --> new regimen is Humalog Mix 46-40-50 units TIDAC CONTINUE Trulicity 4.5mg once weekly as prescribed PharmD will reach out to park activities coordinator to confirm diabetes dx (T1 vs T2) Requested that patient have Dexcom custom home installer charged and present for future visits Indicated for statin; CKD and s/p transplant put him at high risk of ASCVD; appears atorva was last stopped in 2021 for mildly elevated LFTs; recent LFTs WNL. Will discuss at future visit. 2. Medication management - ICD9: V58.69, ICD10: Z79.899 Reviewed all medications, indications, dosing, frequency, administration with patient. Medication list updated as described above. Medication nonadherence: Patient reports adherence with all meds but the following meds were NOT listed on external fill hx. I did confirm with pt that he only gets his meds filled at the [facility] associated with the hospital, occasionally will get a med filled at [facility]. I called pharmacy and confirmed the following: Bupropion 75 and 300mg tabs - 75mg tab was last filled January 23, 2024; 300mg not filled since prior to 2021; [facility] doesn't have any scripts on file (were cancelled in 2023) Ergocalciferol - not filled since prior to 2021 Cholestyramine - last filled June 2024; at [facility], script is on file, was never picked up Gabapentin - last filled prior to 2021; [facility] last filled 06/12/2024, script Pantoprazole - reports it was prescribed in July but not filled Trulicity - 4.5mg pens; last fill was 09/22/24 x 3 boxes, no refills on file; [facility] doesn't have Trulicity on file Based on fill histories, it is likely that the patient is NOT consistently taking the above medications. Will inform PCP as FYI. I also advised pt to have all pill bottles present at f/up visit for a thorough medication review to better confirm what he is actually taking. Per last PCP note, he has refused using an adherence packaging service Drug-drug interaction: Patient taking 2 SSRIs (escitalopram and fluoxetine). Will inform PCP since pt should only be on 1 SSRI due to risk of serotonin syndrome. Patient reports also taking bupropion but pharmacy fill histories indicate he is not taking it. Recommend stopping fluoxetine and restarting low-dose bupropion (can consider abrupt discontinuation due to fluoxetine's long half-life, or can gradually taper off over 1-2 weeks. Monitoring: Patient taking less than prescribed doses of mycophenolate and tacrolimus. Pt advised to continue with how he is taking both meds, but I will forward info to transplant team as high priority so they can determine if additional labs or doses are recommended prior to restarting prescribed dose Refill: Patient gets Rx medications for free. Will send refill request to PCP to prescribe aspirin so pt doesn't have to pay for OTC medications Health Maintenance - Diabetes Topic Date Due Pneumococcal Vaccine: 50+ (3 of 3 - PPSV23, PCV20 or PCV21) 09/01/2021 Diabetic Foot Exam 08/21/2024 Dilated Retinal Exam 10/03/2024 Follow-up Patient is scheduled to see PCP team on 04/05. Patient to have f/up with PharmD team on 04/12. Patient verbalized understanding of instructions. Verna Jensen PharmD, BCPS Primary Care Clinical Pharmacist Time spent: 60 mins documented in this encounter [facility] 03-08-2025 Note HNO ID: [id number] Author: VERNA JENSEN RPh Service: ? Author Type: Pharmacist Type: Progress Notes Filed: 03/08/2025 15:37 Note Text: Primary Care Pharmacy Visit CC (Reason for Consult): Diabetes (E10.9) Type 1 diabetes mellitus on insulin therapy (HCC) (primary encounter diagnosis) Goal: A1c < 7% Last Collaborating Provider Visit: 02/05/25 Italo Burgos is a 54 year old male presenting for initial visit: This initial consult was conducted telephone call with the patient where the consult agreement was explained. The patient may decline or cancel the agreement at any time. After consideration, the patient consented to the pharmacy consult agreement and agreed to allow medications be collaboratively managed by a pharmacist. Interim Events: 01/27: hospitalized for nephrolithiasis, nephrostomy tube placed 02/05: PCP referred to PharmD for DM mngt; Lexapro started 02/07: hospitalized for urine bag leaking 02/11: appt with kidney transplant team 02/25: surgery on kidney HPI: Patient reports having Type 2 diabetes (problem list indicates T1DM). Reports last appt with Dr. Durand (park activities coordinator) was 2 months ago. Says no med changes were made and not sure when next follow-up is scheduled. No specific questions or concerns today. He thinks DM control is going good. Reports he is currently homeless, living in [facility]. Working towards getting an apartment. Does have refrigerator access for insulin. Denies any cost issues. All medications are free. Personal goals: get A1c down (would like to be <8.5%) so he feels better. Energy level is poor. Pees a lot at night, waking up 3-4x/night to urinate. No issues with dry mouth or thirst. No vision changes. Denies any numbness or tingling in hands or feet. Largest meal is lunchtime but he sees the largest spike on Dexcom after breakfast. Current DM Medications: Insulin 50/50 lispro protamine-lispro (Humalog Mix 50/50) 30 units once daily at bedtime (confirmed he is taking 40 units with breakfast and lunch and 50 units with dinner (3 injections/day)) Trulicity on (uncertain of dose; confident he is taking) CGM Data Dexcom G7 *Pt was able to review Averages but then custom home installer turned off No issues with lows Date range Overall AVG 12a-6a 6a-12p 12p-6p 6p-12a TIME IN RANGE 7 day 220 ABOVE 14 day 199 IN (70-180) 30 day BELOW 90 day Preventative Medications: On TOM/ARB: No On Statin: No ROS: Patient denies CP, SOB, VELASCO, blurred vision, dizziness or lightheadedness Patient denies symptoms of hypoglycemia (sweating, anxiety, palpitations, hunger, and tremor) Patient reports symptoms of hyperglycemia (polyuria, fatigue) Patient denies potential medication adverse effects DIET/EXERCISE/SOCIAL Hx: Meals at [facility] include beans, chicken, spaghetti. All meals provided by the home. Breakfast: oatmeal, toast, fruit; only other option available is sugary cereal; drinks 1 glass of milk Lunch: if eats tacos, will eat just the meat and not the bread or tortilla Dinner: yesterday had chicken and baked beans Snacks: will sometimes snack on crackers (options available include cookies, fruit, crackers) Beverages: water; glass of milk with breakfast Exercise: no exercise; minimal physical activity; walks outside 20-25 mins/day Tobacco: none Alcohol: none Illicits: none MEDICATIONS: Pill bottles are not present. Adherence: denies missed doses. Pharmacy: [facility] [place] [address] [phone] - [phone] [id number] Rx coverage: Payor: [facility] MEDICARE / Plan: [facility] DUAL COMPLETE PPO SNP / Product Type: PPO / Medications affordable? Yes Diabetes Supplies: Yes Organization system: pill box, fills weekly on Saturday ACTIVE PROBLEM LIST Uncontrolled Type 2 Diabetes Mellitus With Complication, With Long-Term Current Use of Insulin Hypertension Goal Bp (Blood Pressure) < 140/90 Other Hyperlipidemia Ed (Erectile Dysfunction) Lower Urinary Tract Symptoms (Luts) History of Kidney Stones Microscopic Hematuria Diabetic Polyneuropathy Associated With Type 2 Diabetes Mellitus (Hcc) Nausea Vomiting Moderate Episode of Recurrent Major Depressive Disorder (Hcc) Stage 3a Chronic Kidney Disease ([facility]) Right Leg Weakness Gait Instability Kidney Transplant Recipient ([facility]) Type 1 Diabetes Mellitus On Insulin Therapy (Hcc) 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) ([facility]) Diarrhea Encounter for Monitoring Tacrolimus Therapy Immunosuppressive Management Encounter Following Kidney Transplant ([facility]) Nephrolithiasis PAST MEDICAL HISTORY Diagnosis Date Acute diastolic (congestive) heart failure ([facility]) Bronchitis Chronic kidney failure, stage 4 (severe) ([facility]) 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 ([facility]) 12/16/2018 Depression Detached retina DM type 2, goal HbA1c < 7% ([facility]) Erectile dysfunction, unspecified erectile dysfunction type ESRD (end stage renal (more content not included)... [facility] 02-25-2025 Telephone encounter Note Pt is due 05/06. Need qgenda schedule. [facility] 02-25-2025 Miscellaneous Notes Pt is due 05/06. Need qgenda schedule. Tube Exchange Appointment Request Form Person filling out this form: Xiang Deutsch RN Date: February 25, 2025 Time: 9:56 AM Patient Name: Italo Burgos Patient What type of tube is this? Nephrostomy or nephroureteral (tube in the back) Does this tube need exchanged? Yes, How many weeks? 10 to 12 weeks Per physician direction, does this need to be physician specific? No Does this patient require SANDEEP? No Per physician, can this exchange be done in the region? [place] If the patient has an already existing exchange appointment can that one be cancelled? Yes Any other pertinent information needed for schedulers?transplant kidney documented in this encounter [facility] 02-25-2025 Telephone encounter Note Tube Exchange Appointment Request Form Person filling out this form: Xiang Deutsch RN Date: February 25, 2025 Time: 9:56 AM Patient Name: Italo Burgos Patient What type of tube is this? Nephrostomy or nephroureteral (tube in the back) Does this tube need exchanged? Yes, How many weeks? 10 to 12 weeks Per physician direction, does this need to be physician specific? No Does this patient require SANDEEP? No Per physician, can this exchange be done in the region? [place] If the patient has an already existing exchange appointment can that one be cancelled? Yes Any other pertinent information needed for schedulers?transplant kidney [facility] 02-15-2025 Telephone encounter Note Called patient for scheduled phone appt but unable to reach after multiple attempts. LMOM for mobile phone. Unable to connect to home phone - maybe disconnected? Primary Care Pharmacy Rescheduling Outreach Call center, please contact patient and reschedule telephone visit for Diabetes management within ~4 week(s). (Visit length: 60 minutes) Thank you, Verna Jensen [facility] 02/15/2025 9:51 AM [facility] Work Phone: 02-15-2025 Miscellaneous Notes Called patient for scheduled phone appt but unable to reach after multiple attempts. LMOM for mobile phone. Unable to connect to home phone - maybe disconnected? Primary Care Pharmacy Rescheduling Outreach Call center, please contact patient and reschedule telephone visit for Diabetes management within ~4 week(s). (Visit length: 60 minutes) Thank you, Verna Jensen RPh 02/15/2025 9:51 AM documented in this encounter [facility] 02-09-2025 Telephone encounter Note Pt excluded from TCM-transplant patient and homeless-see Dr. Gaston epic note 02/05/25. [facility] 02-09-2025 Miscellaneous Notes Pt excluded from TCM-transplant patient and homeless-see Dr. Gaston epic note 02/05/25. documented in this encounter [facility] 02-08-2025 Telephone encounter Note SW attempted to return pt's phone call. SW left pt a voicemail and will await return phone call. SARA Sahu-Yvette Transplant Concrete Paving Machine Operator [facility] Work Phone: 02-08-2025 Miscellaneous Notes SW attempted to return pt's phone call. SW left pt a voicemail and will await return phone call. SARA Sahu-S Transplant [employer] Paving Machine Operator documented in this encounter [facility] 02-07-2025 Discharge summary [facility] 02-07-2025 Discharge summary Note Date/Time February 07, 2025 4:04pm [facility] Medical Records Department [address] [place] [address] Emergency Department Summary 02/07/25 MR#: [id number] Acct: [id number] Name: ITALO BURGOS Rep #:[id number] : 1970 54 From: Toni Nelson DO PCP: Dr. Zaida Gaston MD Status:REG E R Location: ED HPI History of Present Illness Chief Complaint: Complaint Detail of Chief Complaint: Leaking urostomy bag Informant: patient Narrative Narrative: Patient presents to the emergency department with complaint of leaking from his urostomy bag. Patient states that he was at this facility a week ago and had a kidney stone in his transplanted kidney and therefore was transferred up to [facility] where they remove the kidney stone and placed a urostomy tube. Patient notices that his bag is leaking and would like a new bag. He denies fevers or chills or sweats. He is otherwise doing well. His transplant was 5 years ago. [facility] Medical History Congestive heart failure (CHF) Diabetic foot ulcer Gas gangrene of foot Necrotizing fasciitis Diabetic foot infection Type 2 diabetes mellitus with diabetic polyneuropathy 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 exposed Vision loss of left eye Respiratory failure Hypoxemia COVID-19 COVID-19 Type 2 diabetes mellitus with diabetic polyneuropathy Cellulitis of left lower limb Pulmonary edema Dyspnea Fistula (~12/2018) History of left heart catheterization (LHC) (~06/26/11) Atherosclerotic heart disease of [place] coronary artery without angina pectoris Essential hypertension Problem with dialysis access Chronic renal failure, stage 5 Vision problems Pneumonia Kidney stones Kidney failure Anasarca associated with disorder of kidney Autonomic neuropathy Hypoglycemia Acute hypoxemic respiratory failure Acute on chronic diastolic CHF (congestive heart failure) Retention, urine Obesity (BMI 30-39.9) Acute respiratory failure with hypoxia Hypokalemia Noncompliance Diabetic neuropathy Diabetic nephropathy Diabetic retinopathy ILDA (acute kidney injury) Hypertensive emergency Chewing tobacco nicotine dependence GERD (gastroesophageal reflux disease) Anxiety and depression Diabetes mellitus type II, uncontrolled Blind left eye HLD (hyperlipidemia) Right leg pain Chronic ulcer of 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 Cellulitis and abscess of right leg History of acute myocardial infarction Home Medications ?Medication ?Instructions ?Recorded ?Last Taken ?Type pantoprazole 20 mg tablet,delayed 20 mg PO DAILY gerd 09/18/21 01/26/25 History release (Protonix) prednisone 5 mg tablet 5 mg PO DAILY steroid 01/26/25 History tacrolimus 1 mg tablet,extended 1 mg PO DAILY rejectio n med 09/18/21 01/26/25 History release 24 hr (Envarsus XR) cholecalciferol (vitamin D3) 25 25 mcg PO FR SUPPLEMEN T' 12/26/21 01/22/25 History mcg (1,000 unit) capsule (Vitamin D3) losartan 25 mg tablet 25 mg PO DAILY BP 09/05/22 0 01/26/25 History acetaminophen 500 mg tablet 500 mg PO Q4H PRN Pain 10/31/22 History aspirin 81 mg chewable tablet 81 mg PO DAILY HEALTH 01/26/25 History gabapentin 100 mg capsule 100 mg PO QHS NERVE PAIN 01/24/25 History atenolol 100 mg tablet 100 mg PO DAILY 03/14/23 History bupropion HCl 75 mg tablet 75 mg PO DAILY 03/24/24 History fluoxetine 10 mg capsule 10 mg PO DAILY 03/24/24 Unkn own History insulin lispro protamine-lispro See Rx Instructions paul bcut .tid 03/30/24 Unknown Rx 100 unit/mL (50-50) subcutaneous with meals #42 mL pen (Humalog Mix 50-50 KwikPen) Trulicity 4.5 mg/0.5 mL 4.5 mg (0.5 mL) subcut QWEEK #6 mL 07/17/24 01/21/25 Rx subcutaneous pen injector (dulaglutide) metoclopramide HCl 5 mg tablet 5 mg PO Q6H PRN vertigo #10 tabs 11/19/24 01/26/25 Rx (Reglan) bupropion HCl 300 mg 24 hr tablet, 300 mg PO DAILY Unknown History extended release carvedilol 25 mg tablet 25 mg PO BID 01/26/25 Unknow n History mycophenolate sodium 180 mg 360 mg PO BID 01/26/25 Unk nown History tablet,delayed release sulfamethoxazole 400 1 tab PO MOWEFR 01/26/25 Unk nown History mg-trimethoprim 80 mg tablet Allergy/AdvReac Type Severity Reaction Status Date / Time No Known Allergies Allergy Verified 02/07/25 13:10 Family History Mother Heart disease Hypertension Father Cancer Brother Cancer Diabetes Sister Diabetes Other Alcohol abuse Depression H/O transfusion of whole blood Kidney disease Surgical History Renal transplant recipient Kidney replaced by transplant History of artificial lens replacement History of arteriovenostomy for renal dialysis (~08/2018) Status post insertion of dialysis catheter (~08/2018) History of appendectomy History of eye surgery History of cholecystectomy Social History household members: spouse Smoking Status: Never smoker second hand exposure: No alcohol intake: never substance use type: does not use caffeine: No what type of physical activity do you participate in: none ROS ROS ED ROS Narrative Leaking urostomy bag Review of Systems ROS Unobtainable: other Constitutional Constitutional ED: Reports lethargy; Denies chills, fever(s), sweats or weight loss Eyes Eyes: Denies blurry vision, change in vision or diplopia ENT ENT ED: Denies rhinorrhea or sore throat Cardiovascular Cardiovascular: Denies chest pain, orthopnea or racing heartbeat Respiratory/Chest Respiratory/Chest: Denies cough, dyspnea, dyspnea on exertion, orthopnea or sputum Gastrointestinal Gastrointestinal: Denies abdominal pain, diarrhea, nausea or vomiting Genitourinary Genitourinary ED: Denies dysuria, hematuria or urinary frequency Musculoskeletal Musculoskeletal: Denies arthralgias, back pain, myalgias or neck pain Integumentary Denies abscess, Abrasions or rash Neurologic Neurologic: Denies headache(s) or weakness Psychiatric Psychiatric: Denies anxiety, depression or suicidal thoughts Endocrine Endocrinology: Denies polydipsia, polyphagia or polyuria Hematologic/Lymphatic Hematologic/Lymphatic: Denies easy bleeding, easy bruising or lymphadenopathy Allergic/Immunologic Allergic/Immunologic ED: Denies mouth swelling, tongue swelling or urticaria EXAM Physical Exam Const Vital Signs: 02/07/25 13:09 Temperature 98.2 F Temperature Source Oral Pulse Rate 99 Respiratory Rate 16 Blood Pressure 149/72 H Blood Pressure Mean 97 Pulse Ox 98 Oxygen Delivery Method Room Air Positive well nourished and well developed General Appearance ED: well developed and NAD HEENT Reports TM's clear and moist mucous membranes normocephalic and atraumatic; Negative for trauma or tenderness Tympanic Membrane ED: Yes TM's clear Eyes PERRL and EOMs intact bilaterally General Eye ED: Negative for pale conjunctiva or scleral icterus Neck no lymphadenopathy, supple and no JVD General: Negative for tenderness Chest Wall inspection of chest normal and palpation of chest normal Chest: Negative for tenderness Resp normal respiratory effort and clear to auscultation bilaterally Effort and Inspection: Negative for respiratory distress or pain with movement Auscultation: Negative for rhonchi, wheezes or diminished lung sounds Cardio regular rate, regular rhythm, S1 normal heart sound, S2 normal heart sound and no murmurs Peripheral Pulses: pulses 2+ throughout GI normal to inspection, nondistended, normoactive bowel sounds, soft to palpation,non-tender, non-distended and no masses GI Narrative: Patient has a urostomy from the right lower quadrant. The dressing is not saturated. Tubing appears to be intact. Cannot visualize the source of the leak at the bag. Back/Spine no CVA tenderness and no thoracic nor lumbar tenderness Extremity normal to inspection General Extremety ED: Negative for edema General Extremity: Negative for edema Neuro oriented x3, CN's II-XII intact bilaterally, no sensory deficits noted and gait normal Sensorium / Orientation: awake, alert, oriented to person, oriented to place andoriented to time Motor Exam: strength 5/5 throughout and strength abnormal Psych mental status grossly normal Skin no rashes or lesions noted and no wounds MDM MDM MDM Narrative Medical decision making narrative: Patient with a leaking urostomy bag. Will attempt to replace the bag and check all connections. Nursing staff was able to find tubing and bag to correct the problem. Patient advised to follow-up with his urologist as the tubing is shorter than his original tubing. Patient comfortable with plan. Discharged [facility] in stable condition. Discharge Plan Triage Chief Complaint: Complaint ED Provider: Toni Nelson Dx/Rx/DC Orders Clinical Impression: Nephrostomy tube failure with subsequent urine leak Instructions: Urinary Catheter Bag Care Prescriptions: No Action losartan 25 mg tablet 25 mg PO DAILY bupropion HCl 75 mg tablet 75 mg PO DAILY fluoxetine 10 mg capsule 10 mg PO DAILY prednisone 5 mg Tablet 5 mg PO DAILY pantoprazole [Protonix] 20 mg Tablet,Delayed Release (Dr/Ec) 20 mg PO DAILY Envarsus XR 1 mg tablet extended release 24 hr 1 mg PO DAILY cholecalciferol (vitamin D3) [Vitamin D3] 25 mcg (1,000 unit) Capsule 25 mcg PO FR acetaminophen 500 mg Tablet 500 mg PO Q4H PRN (Reason: Pain) aspirin [Aspirin Low-Strength] 81 mg Tablet,Chewable 81 mg PO DAILY gabapentin 100 mg capsule 100 mg PO QHS atenolol 100 mg tablet 100 mg PO DAILY carvedilol 25 mg tablet 25 mg PO BID sulfamethoxazole-trimethoprim 400-80 mg tablet 1 tab PO MOWEFR mycophenolate sodium 180 mg tablet,delayed release (DR/EC) 360 mg PO BID bupropion HCl 300 mg tablet extended release 24 hr 300 mg PO DAILY metoclopramide HCl [Reglan] 5 mg tablet 5 mg PO Q6H PRN (Reason: vertigo ) Qty: 10 0RF Humalog Mix 50-50 KwikPen 100 unit/mL (50-50) insulin pen See Rx Instructions subcut .tid with meals Qty: 42 5RF Rx Instructions: 40-40-60 units subcutaneously TID WITH MEALS; Trulicity 4.5 mg/0.5 mL pen injector 4.5 mg subcut QWEEK Qty: 6 1RF Patient Comments: PT TAKES ON THURSDAYS Primary Care Provider: Zaida Gaston Referrals: Zaida Gaston MD [Primary Care Provider] - Print Language: Upper Sorbian Disposition Disposition: Home, Self Care What to do if you have Problems For any increased pain, shortness of breath, bleeding, nausea or vomiting, chestpain, or any unexpected problems, contact your Primary Care Provider. Call [facility] ([phone]) or report to the closest Emergency Room. Call 911 if necessary. 02/07/25 [id number] <Electronically signed by Toni Nelson DO> Cosigner Signature (if applicable): CC: Dr. Zaida Gaston MD ~ Signed [facility] Work Phone: [phone]) 424-958105-30-2025 NoteHNO ID: [id number] Author: ZAIDA GASTON MD Service: ? Author Type: Physician Type: Progress Notes Filed: 02/05/2025 15:00 Note Text: Reason for Visit Follow up HPI Italo is a 54-year-old male with a history of nephrolithiasis, T1DM, and depression, presenting for follow-up. Italo was recently hospitalized for nephrolithiasis, during which a nephrostomy tube was placed. He has a follow-up appointment with urology next to discuss the potential removal of the nephrostomy tube. He changes the nephrostomy tube every 5 days and denies any issues with the process. He is able to manage his medications independently and declines assistance from an adherence pharmacy. He reports hyperglycemia, with a recent blood glucose reading of 425 mg/dL. This morning, his blood glucose was 190 mg/dL. He does not monitor his blood glucose levels postprandially. He was previously using a Dexcom G6 CGM, which was recently changed to a G7, but he is unsure how to use the new device. Italo is currently residing at [facility] a [facility], since September. He previously lived with his sister but left due to conflicts. He expresses feelings of depression related to his current living situation and health issues. He is currently taking Wellbutrin 300 mg and 75 mg for depression. He has not tried Celexa, Lexapro, or Zoloft. Social History Tobacco Use Smoking status: Never Smokeless tobacco: Former Types: Snuff Tobacco comments: snuff x 33 years Quit in 2020 Vaping Use Vaping status: Never Used Substance Use Topics Alcohol use: Not Currently Drug use: Not Currently Types: Marijuana Past medical history, appointments, medications, allergies reviewed. Pertinent Lab/Diagnostic Studies are reviewed and discussed today Current Outpatient Medications: tacrolimus IR (PROGRAF) 1 mg capsule carvedilol (COREG) 12.[address] (MYFORTIC) 180 mg EC tablet Cholestyramine, Bulk, powd sulfamethoxazole-trimethoprim (BACTRIM) 400-80 mg per tablet pantoprazole DR (PROTONIX) 20 mg tablet predniSONE (DELTASONE) 5 mg tablet buPROPion XL (WELLBUTRIN XL) 300 mg 24 hr tablet buPROPion (WELLBUTRIN) 75 mg tablet FLUoxetine (PROZAC) 10 mg capsule loperamide (IMODIUM) 2 mg cap(s) pseudoephedrine (SUDAFED) 30 mg tablet ergocalciferol 50,000 unit capsule (VITAMIN D2, DRISDOL) insulin 50/50 lispro protamine-lispro units/mL (HUMALOG MIX 50-50 KWIKPEN) 100 unit/mL (50-50) pen glucagon 3 mg/actuation nasal spray (BAQSIMI) escitalopram oxalate (LEXAPRO) 10 mg tablet gabapentin (NEURONTIN) 100 mg capsule aspirin 81 mg chewable tablet fluticasone (FLONASE) 50 mcg/actuation nasal spray Health Maintenance Anxiety Screening Hepatitis A Vaccine(1 of 2 - Risk 2-dose series) Shingrix Vaccine(1 of 2) Prostate Cancer Screening Discussion Covid-19 Vaccine(3 - Moderna risk series) Pneumococcal Vaccine: 50+(3 of 3 - PPSV23, PCV20 or PCV21) Diabetic Foot Exam Dilated Retinal Exam@ Review Of Systems Constitutional: (+) fatigue Physical Exam BP 106/68 Pulse 93 Resp 16 Wt 82.3 kg (181 lb 6.4 oz) SpO2 95% BMI 27.59 kg/m? GENERAL: NAD, alert and oriented SKIN: unremarkable, no rash or skin lesions. HEAD: normocephalic EYES: PERRLA, EOMI, conjunctiva clear EARS: external ears normal, canals clear, TM's normal. NOSE/SINUSES: Nares normal. Septum midline. OROPHARYNX: lips, mucosa, and tongue normal, good dentition. No oral lesions noted. NECK: Supple, no lymphadenopathy, normal thyroid, no carotid bruits. LUNGS: Clear to auscultation bilaterally, no wheezes/rhonchi/rales. HEART: Regular rate and rhythm, no murmurs. No ectopy. EXTREMITIES: Normal, No deformities, No skin discoloration, No edema. NEURO: Awake, alert and oriented x3, cranial nerves II-XII grossly intact, normal gait, no involuntary motions Labs: - Creatinine: Elevated - Urine culture: No growth - Hemoglobin: 13 g/dL - Glucose: 425 mg/dL Imaging: - Kidney stones identified Assessment and Plan 1. Hypertension goal BP (blood pressure) < 140/90 (I10) Blood pressure is well-controlled today. Carvedilol dosage reduced from 25 mg to 12.5 mg. Losartan was discontinued due to renal function concerns. - Continue monitoring blood pressure. - Resume Losartan if renal function stabilizes. 2. Kidney transplant recipient (HCC) (Z94.0) History of kidney stones (Z87.442) Recent hospitalization due to elevated creatinine levels and nephrolithiasis. Currently managed with a nephrostomy tube, which is being changed every 5 days without complications. Urine culture was negative, but prophylactic treatment was initiated due to immunocompromised status. - Follow-up appointment with Urology at the [facility] scheduled for next with Dr. Maryjane Quinteros to discuss nephrostomy tube management. - Continue current nephrostomy tube care. 3. Type 1 diabetes mellitus (more content not included)...[facility]05-30-2025 History of Present illness Narrative* Zaida Gaston MD - 02/05/2025 2:59 PM EDT Reason for Visit Follow up HPI Italo is a 54-year-old male with a history of nephrolithiasis, T1DM, and depression, presenting forfollow-up. Italo was recently hospitalized for nephrolithiasis, during which a nephrostomy tube was placed. Hehas a follow-up appointment with urology next to discuss the potential removal of the nephrostomy tube. He changes the nephrostomy tube every 5 days and denies any issues with the process. He is able to manage his medications independently and declines assistance from an adherence pharmacy. He reports hyperglycemia, with a recent blood glucose reading of 425 mg/dL. This morning, his bloodglucose was 190 mg/dL. He does not monitor his blood glucose levels postprandially. He was previously using a DexGoPlaceIt G6 CGM, which was recently changed to a G7, but he is unsure how to use the new device. Italo is currently residing at [facility], a correction for homeless [facility], since September. He previously lived with his sister but left due to conflicts. He expresses feelings of depression relatedto his current living situation and health issues. He is currently taking Wellbutrin 300 mg and 75 mg for depression. He has not tried Celexa, Lexapro, or Zoloft. Social History Tobacco Use Smoking status: Never Smokeless tobacco: Former Types: Snuff Tobacco comments: snuff x 33 years Quit in 2020 Vaping Use Vaping status: Never Used Substance Use Topics Alcohol use: Not Currently Drug use: Not Currently Types: Marijuana Past medical history, appointments, medications, allergies reviewed. Pertinent Lab/Diagnostic Studies are reviewed and discussed today Current Outpatient Medications: tacrolimus IR (PROGRAF) 1 mg capsule carvedilol (COREG) 12.[address] (MYFORTIC) 180 mg EC tablet Cholestyramine, Bulk, powd sulfamethoxazole-trimethoprim (BACTRIM) 400-80 mg per tablet pantoprazole DR (PROTONIX) 20 mg tablet predniSONE (DELTASONE) 5 mg tablet buPROPion XL (WELLBUTRIN XL) 300 mg 24 hr tablet buPROPion (WELLBUTRIN) 75 mg tablet FLUoxetine (PROZAC) 10 mg capsule loperamide (IMODIUM) 2 mg cap(s) pseudoephedrine (SUDAFED) 30 mg tablet ergocalciferol 50,000 unit capsule (VITAMIN D2, DRISDOL) insulin 50/50 lispro protamine-lispro units/mL (HUMALOG MIX 50-50 KWIKPEN) 100 unit/mL (50-50) pen glucagon 3 mg/actuation nasal spray (BAQSIMI) escitalopram oxalate (LEXAPRO) 10 mg tablet gabapentin (NEURONTIN) 100 mg capsule aspirin 81 mg chewable tablet fluticasone (FLONASE) 50 mcg/actuation nasal spray Health Maintenance Anxiety Screening Hepatitis A Vaccine(1 of 2 - Risk 2-dose series) Shingrix Vaccine(1 of 2) Prostate Cancer Screening Discussion Covid-19 Vaccine(3 - Moderna risk series) Pneumococcal Vaccine: 50+(3 of 3 - PPSV23, PCV20 or PCV21) Diabetic Foot Exam Dilated Retinal Exam@ Review Of Systems Constitutional: (+) fatigue Physical Exam BP 106/68 Pulse 93 Resp 16 Wt 82.3 kg (181 lb 6.4 oz) SpO2 95% BMI 27.59 kg/m GENERAL: NAD, alert and oriented SKIN: unremarkable, no rash or skin lesions. HEAD: normocephalic EYES: PERRLA, EOMI, conjunctiva clear EARS: external ears normal, canals clear, TM's normal. NOSE/SINUSES: Nares normal. Septum midline. OROPHARYNX: lips, mucosa, and tongue normal, good dentition. No oral lesions noted. NECK: Supple, no lymphadenopathy, normal thyroid, no carotid bruits. LUNGS: Clear to auscultation bilaterally, no wheezes/rhonchi/rales. HEART: Regular rate and rhythm, no murmurs. No ectopy. EXTREMITIES: Normal, No deformities, No skin discoloration, No edema. NEURO: Awake, alert and oriented x3, cranial nerves II-XII grossly intact, normal gait, no involuntary motions Labs: - Creatinine: Elevated - Urine culture: No growth - Hemoglobin: 13 g/dL - Glucose: 425 mg/dL Imaging: - Kidney stones identified Assessment and Plan 1. Hypertension goal BP (blood pressure) < 140/90 (I10) Blood pressure is well-controlled today. Carvedilol dosage reduced from 25 mg to 12.5 mg. Losartan was discontinued due to renal function concerns. - Continue monitoring blood pressure. - Resume Losartan if renal function stabilizes. 2. Kidney transplant recipient ([facility]) (Z94.0) History of kidney stones (Z87.442) Recent hospitalization due to elevated creatinine levels and nephrolithiasis. Currently managed with a nephrostomy tube, which is being changed every 5 days without complications. Urine culture was negative, but prophylactic treatment was initiated due to immunocompromised status. - Follow-up appointment with Urology at the [facility] scheduled for next with Dr. Maryjane Quinteros to discuss nephrostomy tube management. - Continue current nephrostomy tube care. 3. Type 1 diabetes mellitus on insulin therapy ([facility]) (E10.9) Hyperglycemia (R73.9) Blood glucose levels remain elevated, with a recent reading of 425 mg/dL. Patient is using a DexcomG7 CGM but reports not checking postprandial glucose levels. - Referred to pharmacy for diabetes management and education on CGM use. - Monitor blood glucose levels more frequently, including postprandial readings. 4. Moderate episode of recurrent major depressive disorder ([facility]) (F33.1) Patient expresses feelings of depression related to current living situation and health status. Currently on Wellbutrin 300 mg and 75 mg. - Initiated Lexapro to augment current antidepressant regimen. - Monitor for improvement in depressive symptoms. 5. Hospital discharge follow-up (Z09) Recent hospitalization for elevated creatinine and nephrolithiasis. Hemoglobin is stable at 13 g/dL. - Complete standing orders for blood work to monitor renal function. - Follow-up with nephrology as scheduled. Voice recognition software was used to compose this office note. Please excuse any unintended typographical errors. Recording using ambient [employer] software for draft documentation of the visit was discussed with the patient/authorized customer care representative; all questions welcomed and answered. Patient/authorized customer care representative agreed to proceed Zaida Gaston MD documented [facility] Instructions* Patient Instructions* Zaida Gaston MD - 02/05/2025 11:40 AM EDT We discussed your kidney stones and nephrostomy tube: - You currently have a nephrostomy tube in place. You are changing it every 5 days and have not hadany issues managing it on your own. - You have a follow-up appointment with Urology at the [facility] next to discuss the next steps, including whether the tube will be removed or kept in place. Dr. Maryjane Quinteros will see you at [facility]. - Please ensure you have transportation arranged for this appointment. We discussed your diabetes and blood sugar management: - Your blood sugar levels remain high, with a reading of 190 this morning. You are not currently checking your blood sugar after meals. - I will connect you with a pharmacist to help manage your diabetes and provide more frequent follow-up. They will also assist you with using your continuous glucose monitor (G7) if needed. - Please continue monitoring your blood sugar levels regularly and follow the pharmacist's guidance. We discussed your blood pressure and medications: - Your blood pressure is well-controlled today. - Your losartan has been discontinued due to concerns about your kidney function. Please continue taking carvedilol 12.5 mg as prescribed. - If you have any issues with your medications, let me know. We discussed your mental health: - You are currently taking Wellbutrin 300 mg and 75 mg daily. I have added Lexapro to your regimen to help address symptoms of depression. This prescription has been sent to [facility]. - If you experience any side effects or feel the medication is not helping, please let me know so we can adjust your treatment. We discussed your living situation and overall well-being: - You are currently staying at [facility], a correction for homeless [facility]. I encourage you to focus on self-care and maintaining your health during this time. - Once your nephrostomy tube is removed, consider engaging in small acts of volunteering, such as visiting nursing homes or helping others. This may provide a sense of purpose and improve your overall mood. We discussed your lab work: - Your hemoglobin level is 13, which is within the normal range. No concerns at this time. - Please complete your standing lab orders as soon as possible to monitor your kidney function and overall health. Next steps: - Attend your urology appointment next at the main campus. - Work with the pharmacist to improve your blood sugar control and learn how to use your continuousglucose monitor. - Continue taking your medications as prescribed, including the newly added Lexapro. - Complete your standing lab orders. - Reach out to me if you have any concerns or if your symptoms worsen. documented in this encounterMary [facility] Telephone encounter Note * Telephone Encounter - Danni Singh RN - 02/05/2025 9:44 AM EDT SERVICE DATE: February 05, 2025 SERVICE TIME: 934 CONSULTING SERVICE: Interventional Radiology IMPRESSION/RECOMMENDATIONS Italo was contacted today for follow up s/p placement of Nephrostomy/Nephroureteral catheter(s). - Nephrostomy/Nephroureteral tube(s) to gravity drainage with reported good output. Color clear/yellow. - Discussed signs and symptoms of infection. - Reviewed how to manage common tube related problems and emergency situations. - Emergency telephone contact information reviewed. - Reviewed dressing changes and tube flushing. - Tube care supplies adequate. - Routine tube change scheduled: 02/25 NEPH TUBE CARE INSTRUCTIONS: 1) Leave drain to gravity at all times. 2) Gently cleanse area around drain insertion site with warm soap and water, rinse, pat dry and apply clean dry dressing every other day and PRN wet or soiled. 3) If catheter stops draining urine and/or patient develops, fever greater than 100.4 F, flank pain, saturated dressings, check catheter for kinks, and remove bag at luer lock connection to gently flush drain with 5 ml NS. 4) If questions or concerns were to arise please call interventional radiology nurse line at M-F 7am - 3:30 am. After hours please call or and ask the electric detector operator to page the interventional energy operations vice president cargo operations agent. 5) To change or schedule an appointment with interventional radiology please call scheduling at . Instructions for My Care at Home or Healthcare Facility Additional Health Information I Need to Know After I Leave thespital:Symptoms of an Infection to Watch for Include: Fever Swelling Increase in Redness Pus Call your doctor if you: See signs of infection, such as redness, drainage, foul odor, or swelling at the tube site. Have a temperature higher than 100.4 F or 38 C. Develop shaking chills. Do not have relief from pain or the flow is not restored after flushing. See bright red blood in your urine (some pink-tinged urine is to be expected). Notice a foul odor in your urine. Watch for the following: Wet dressing Pain in your back or sides Little or no urine drainage If you have any of the above signs or symptoms, follow these steps: If your tube is already attached to a drainage bag, remove your dressing and check to see if the tube is kinked. If the tube is kinked, straighten the tube until fluid begins to flow. If fluid does not drain after removing the kink in the tube, you may need to gently flush the tube. If your tube is capped attach a drainage bag. Be sure the drainage bag is below the level of the tube site. Wound Care/Surgical Site Care: Keep the dressing that is over the tube site clean and dry. You may have a stitch holding your tube in place. If the stitch breaks, call your doctor. Your tube may have a lock that holds it in place. Do not open the lock. Always keep the bag below the tube site to allow proper drainage by gravity. Your dressing should be changed every other day or sooner if it becomes wet, soiled, falls off, or unless instructed otherwise. It is easier if someone helps you change the dressing. Change the drainage bag monthly.. It is important that the tube remain in the proper position and does not become kinked. You may shower. DO NOT swim or soak in water. Please refer to the YouTube video for nephrostomy tube care instructions and demonstrations. [email or web address] Activity and Exercise: (When I can drive, return to work) Rest when you get home after the procedure. We recommend a responsible adult stay with you overnight after the procedure. Avoid lying or sleeping on your back to prevent kinking of the tube. You may resume your normal activities 24 hours after the procedure. Follow-Up Appointment Reminders: (A list of any scheduled appointments is at the end of this document) For routine concerns please call Interventional Radiology nurse triage line [phone], Saturday - Saturday 9 a.m. - 4 p.m. After hours please call and ask for Interventional Radiology Fellow cargo operations agent, pager [phone]. In the event of acute symptoms report directly to local emergency department and notify the Department of Intervention Radiology after the fact. All questions and concerns were addressed. I spent 10 minutes on the above conversation with the patient. [facility]05-30-2025 Miscellaneous Notes* Telephone Encounter - Danni Singh RN - 02/05/2025 9:44 AM EDT SERVICE DATE: February 05, 2025 SERVICE TIME: 934 CONSULTING SERVICE: Interventional Radiology IMPRESSION/RECOMMENDATIONS Italo was contacted today for follow up s/p placement of Nephrostomy/Nephroureteral catheter(s). - Nephrostomy/Nephroureteral tube(s) to gravity drainage with reported good output. Color clear/yellow. - Discussed signs and symptoms of infection. - Reviewed how to manage common tube related problems and emergency situations. - Emergency telephone contact information reviewed. - Reviewed dressing changes and tube flushing. - Tube care supplies adequate. - Routine tube change scheduled: 02/25 NEPH TUBE CARE INSTRUCTIONS: 1) Leave drain to gravity at all times. 2) Gently cleanse area around drain insertion site with warm soap and water, rinse, pat dry and apply clean dry dressing every other day and PRN wet or soiled. 3) If catheter stops draining urine and/or patient develops, fever greater than 100.4 F, flank pain, saturated dressings, check catheter for kinks, and remove bag at luer lock connection to gently flush drain with 5 ml NS. 4) If questions or concerns were to arise please call interventional radiology nurse line at M-F 7am - 3:30 am. After hours please call or and ask the electric detector operator to page the interventional energy operations vice president cargo operations agent. 5) To change or schedule an appointment with interventional radiology please call scheduling at . Instructions for My Care at Home or Healthcare Facility Additional Health Information I Need to Know After I Leave theHospital:Symptoms of an Infection to Watch for Include: Fever Swelling Increase in Redness Pus Call your doctor if you: See signs of infection, such as redness, drainage, foul odor, or swelling at the tube site. Have a temperature higher than 100.4 F or 38 C. Develop shaking chills. Do not have relief from pain or the flow is not restored after flushing. See bright red blood in your urine (some pink-tinged urine is to be expected). Notice a foul odor in your urine. Watch for the following: Wet dressing Pain in your back or sides Little or no urine drainage If you have any of the above signs or symptoms, follow these steps: If your tube is already attached to a drainage bag, remove your dressing and check to see if the tube is kinked. If the tube is kinked, straighten the tube until fluid begins to flow. If fluid does not drain after removing the kink in the tube, you may need to gently flush the tube. If your tube is capped attach a drainage bag. Be sure the drainage bag is below the level of the tube site. Wound Care/Surgical Site Care: Keep the dressing that is over the tube site clean and dry. You may have a stitch holding your tube in place. If the stitch breaks, call your doctor. Your tube may have a lock that holds it in place. Do not open the lock. Always keep the bag below the tube site to allow proper drainage by gravity. Your dressing should be changed every other day or sooner if it becomes wet, soiled, falls off, or unless instructed otherwise. It is easier if someone helps you change the dressing. Change the drainage bag monthly.. It is important that the tube remain in the proper position and does not become kinked. You may shower. DO NOT swim or soak in water. Please refer to the YouTube video for nephrostomy tube care instructions and demonstrations. [email or web address] Activity and Exercise: (When I can drive, return to work) Rest when you get home after the procedure. We recommend a responsible adult stay with you overnight after the procedure. Avoid lying or sleeping on your back to prevent kinking of the tube. You may resume your normal activities 24 hours after the procedure. Follow-Up Appointment Reminders: (A list of any scheduled appointments is at the end of this document) For routine concerns please call Interventional Radiology nurse triage line [phone], Saturday - Saturday 9 a.m. - 4 p.m. After hours please call and ask for Interventional Radiology Fellow cargo operations agent, pager [phone]. In the event of acute symptoms report directly to local emergency department and notify the Department of Intervention Radiology after the fact. All questions and concerns were addressed. I spent 10 minutes on the above conversation with the patient. [facility] Telephone encounter Note * Telephone Encounter - Azra Hogan - 02/04/2025 10:01 AM EDT Patient is an exclusion from post discharge call back program (transplant patient) [facility]05-29-2025 Miscellaneous Notes* Telephone Encounter - Azra Hogan - 02/04/2025 10:01 AM EDT Patient is an exclusion from post discharge call back program (transplant patient) [facility] Telephone encounter Note * Telephone Encounter - Amanda Hayes LISW - 02/03/2025 2:12 PM EDT SW made another attempt to contact ([phone]) pt regarding the pt possibility of him being homeless. SW left a voicemail and will await return phone call. MATTHEW Sahu Transplant Concrete Paving Machine Operator [facility] Work Phone: [phone] Miscellaneous Notes* Telephone Encounter - Amanda Hayes LISW - 02/03/2025 2:12 PM EDT SW made another attempt to contact ([phone]) pt regarding the pt possibility of him being homeless. SW left a voicemail and will await return phone call. MATTHEW Sahu Transplant Concrete Paving Machine Operator documented in this encounter[facility] Telephone encounter Note * Telephone Encounter - Danni Singh RN - 02/03/2025 11:34 AM EDT Interventional Radiology Follow Up Call Attempted to reach Italo today for follow up from their tube placement. Unable to reach them at this time. Message left with phone number to return the call. [facility]05-28-2025 Miscellaneous Notes* Telephone Encounter - Danni Singh RN - 02/03/2025 11:34 AM EDT Interventional Radiology Follow Up Call Attempted to reach Italo today for follow up from their tube placement. Unable to reach them at this time. Message left with phone number to return the call. documented in this [facility] Telephone encounter Note * Telephone Encounter - Bon Concepcion RN - 02/02/2025 12:20 PM EDT Delfino Helm Anna, MD; Bon Concepcion RN I also called pt again as well and phone goes to VM but VM is full. I will sent a mychart to pt as well to contact the office for assistance with scheduling [facility]05-27-2025 Miscellaneous Notes* Telephone Encounter - Bon Concepcion RN - 02/02/2025 12:20 PM EDT Delfino Helm Anna, MD; Bon Concepcion RN I also called pt again as well and phone goes to VM but VM is full. I will sent a mychart to pt as well to contact the office for assistance with scheduling * Telephone Encounter - Bon Concepcion RN - 02/02/2025 10:42 AM EDT Images from the original note were not included. Called patient to discuss scheduling surgery and consult with Dr. Wesley for kidney stone removal.No answer, Mailbox full. Mobile phone would not go through. Bon Concepcion RN February 02, 2025 ---- Neli Wesley MD [facility], Jamal; Bon Concepcion RN Hi Jamal. This one we can add on for a consultation at any location. I won't do his surgery until March since he has a NT Chris - this one can be scheduled on March 18. Will need preops and likely NT exchange prior to the date of surgery given the timeframe Right transplant kidney PCNL and antegrade ureteroscopy with laser lithotripsy. Thanks Neli Wesley MD Previous Messages ----- Message ----- From: Jordyn Robb MD Sent: 01/28/2025 6:56 AM EDT To: Neli Wesley MD Subject: Kidney transplant with onstructig mid ureter* Hello Dr. Wesley, I requested an appointment with you to discuss antegrade stone management, Patient got his NT and Cr trending down now. Thank you Jordyn * Telephone Encounter - Bon Concepcion RN - 01/29/2025 9:00 AM EDT Delfino Helm Anna, MD; Bon Concepcion RN Left message on pt's VM to contact the office to confirm procedure date and set up consultation appt. documented in [facility] Telephone encounter Note * Telephone Encounter - Bon Concepcion RN - 02/02/2025 10:42 AM EDT Images from the original note were not included. Called patient to discuss scheduling surgery and consult with Dr. Wesley for kidney stone removal.No answer, Mailbox full. Mobile phone would not go through. Bon Concepcion RN February 02, 2025 ---- Neli Wesley MD [facility], Jamal; Bon Concepcion RN Ks Delfino. This one we can add on for a consultation at any location. I won't do his surgery until March since he has a NT Chris - this one can be scheduled on March 18. Will need preops and likely NT exchange prior to the date of surgery given the timeframe Right transplant kidney PCNL and antegrade ureteroscopy with laser lithotripsy. Thanks Neli Wesley MD Previous Messages ----- Message ----- From: Jordyn Robb MD Sent: 01/28/2025 6:56 AM EDT To: Neli Wesley MD Subject: Kidney transplant with onstructig mid ureter* Hello Dr. Wesley, I requested an appointment with you to discuss antegrade stone management, Patient got his NT and Cr trending down now. Thank you Jordyn [facility]05-23-20[facility] Telephone encounter Note* Telephone Encounter - Bon Concepcion RN - 01/29/2025 9:00 AM EDT [facility], Neli Yee MD; Bon Concepcion RN Left message on pt's VM to contact the office to confirm procedure date and set up consultation appt. [facility]05-22-2025 NoteHNO ID: [id number] Author: DENISE FORD RPh Service: Pharmacy Author Type: Pharmacist Type: Plan of Care Filed: 01/28/2025 13:23 Note Text: DISCHARGE MEDICATION REVIEW BY PHARMACY Patient Name: Italo Burgos Account #: Data Unavailable Admission Date: 01/27/2025 Date of Contact: January 28, 2025 Time of Contact: 1:22 PM Medication list was reviewed by a Pharmacist for drug interactions or drug related problems:Yes Below is a summary of pharmacist recommendations discussed with LIP: The following medications were discussed with LIP for further review: continuing mycophenolate at discharge. I have received a verbal order from the LIP and made the following changes: mycophenolate resumed on the [place] med rec. Denise Ford RPh Pager: [phone] 01/28/2025 1:22 PM Medication List CHANGE how you take these medications carvedilol 12.5 mg tablet Commonly known as: COREG Take 1 tablet by mouth two times a day. What changed: medication strength how much to take CONTINUE taking these medications aspirin 81 mg chewable tablet chew and swallow 1 tablet by mouth once daily. * buPROPion XL 300 mg 24 hr tablet Commonly known as: WELLBUTRIN XL Take 1 tablet by mouth once daily. * buPROPion 75 mg tablet Commonly known as: WELLBUTRIN Take 1 tablet by mouth once daily. Cholestyramine (Bulk) Powd Take one(1) scoop dissolved in two(2) to six(6) ounces(oz) of fluid by mouth daily. ergocalciferol (vitamin D2) 50,000 unit capsule Commonly known as: VITAMIN D2 Take 1 capsule by mouth one time a week. FLUoxetine 10 mg capsule Commonly known as: PROzac Take 1 capsule by mouth once daily. fluticasone 50 mcg/actuation nasal spray Commonly known as: FLONASE Use 2 Sprays in each nostril once daily. gabapentin 100 mg capsule Commonly known as: NEURONTIN Take 1 capsule by mouth daily at bedtime for 180 days. glucagon 3 mg/actuation nasal spray Commonly known as: BAQSIMI Use 1 [place] in the nose as needed for low blood sugar. May repeat after 15 minutes using a new device if there is no response. HumaLOG Mix 50-50 KwikPen 100 unit/mL (50-50) pen Generic drug: insulin 50/50 lispro protamine-lispro units/mL Inject 30 Units subcutaneously daily at bedtime. loperamide 2 mg cap(s) Commonly known as: IMODIUM Take 1 capsule by mouth four times a day as needed. mycophenolate sodium DR 180 mg EC tablet Commonly known as: MYFORTIC Take 2 tablets by mouth two times a day. pantoprazole DR 20 mg tablet Commonly known as: PROTONIX Take 1 tablet by mouth once daily. predniSONE 5 mg tablet Commonly known as: DELTASONE Take 1 tablet by mouth once daily. pseudoephedrine 30 mg tablet Commonly known as: SUDAFED Take Four 4 (30 mg) Tablets for an erection lasting more than 2 hours. If not improved in 1 hour MUST go to ER sulfamethoxazole-trimethoprim 400-80 mg per tablet Commonly known as: BACTRIM Take 1 tablet by mouth every Saturday, Saturday, and Saturday. tacrolimus IR 1 mg capsule Commonly known as: PROGRAF Take 2 caps in am and 1 cap in pm * This list has 2 medication(s) that are the same as other medications prescribed for you. Read the directions carefully, and ask your doctor or other care provider to review them with you. STOP taking these medications dulaglutide 0.75 mg/0.5 mL pen injector Commonly known as: TRULICITY losartan 25 mg tablet Commonly known as: COZAAR Where to Get Your Medications [place] [address] [address] [facility] - [phone] [id number] [facility] [address] carvedilol 12.5 mg [facility] NoteHNO ID: [id number] Author: DANG MUNGUIA LSW Service: Care Management Author Type: Concrete Paving Machine Operator Type: Care Mgt Progress Note Filed: 01/28/2025 13:52 Note Text: CARE MANAGEMENT DISCHARGE NOTE SERVICE DATE: January 28, 2025 SERVICE TIME: 12:54 PM Admission Date: 01/27/2025 LOS: 1 day Discharge Arrangement Discharge Arrangement: Home with Home Health Caregiver Assessment Caregiver is ready, willing and able to meet the patient's needs as recommended by the inter-professional team: No Caregiver needed Transportation Arrangements Transportation Arrangements: Uber/Lyft/Ela (paid by [facility] [place]) Handoff Communication: Handoff to: Primary Care Physician Primary Care Physician Name/Phone: Zaida Gaston MD PCP - General, Internal Medicine Since 04/26/2016 via soc Per primary team, plan for dc today and dc orders in. Pt to return [facility]. CM confirmed with correction pt is able to return. No accepting HC as of now; primary team aware. TTR to transport. UPDATE 1:52pm: Per primary team, plan for dc tomorrow. SIGNATURE: CRISTHIAN Torres PATIENT NAME: Italo Burgos DATE: January 28, 2025 TIME: 12:54 [facility]05-22-2025 NoteHNO ID: [id number] Author: SHANA CANTOR MD Service: General Internal Medicine Author Type: Resident Type: Progress Notes Filed: 02/08/2025 12:43 Note Text: Attestation signed by Shana Cantor MD at 02/08/2025 12:43 PM (Updated) [facility] STAFF: TEACHING PHYSICIAN NOTE OF PERSONAL INVOLVEMENT IN CARE I have reviewed the progress note obtained and documented by the resident. I personally participated in the de anda components, examined the patient and have discussed the management and care to both the patient and resident. The following comments revise or confirm relevant de anda components of the note. Hx and details as outlined below. Patient with obstructive uropathy 2/2 to renal calculus in transplant kidney here with ILDA s/p nephrostomy and diuresing well. ILDA improving SCr: baseline : ~1.5 -> 10.5 -> 7.42 ->4.96 ->3.04 OK to hold DC per nephrology SW/CM consult for meds and correction Sepsis ruled out Shana Cantor MD Pager #: [phone] Date of service: January 28, 2025 Time of service: 8:37 PM DEPARTMENT OF HOSPITAL MEDICINE PROGRESS NOTE SERVICE DATE: 01/28/2025 SERVICE TIME: 8:38 AM Hospital Medicine/Primary Attending: Shana Cantor,* NIGHT AND WEEKEND COVERAGE: [facility] COVERAGE: Days: [phone], please page Joel Chapin for patient issues. IHP: - Doing well, no complaints no pain, no fevers VS: 137/74 HR 85 Labs: Creatinine Date Value Ref Range Status 01/28/2025 4.96 (H) 0.73 - 1.22 mg/dL Final 01/27/2025 7.42 (H) 0.73 - 1.22 mg/dL Final 01/27/2025 9.90 (H) 0.73 - 1.22 mg/dL Final 01/01/2025 1.59 (H) 0.73 - 1.22 mg/dL Final Sodium Date Value Ref Range Status 01/28/2025 134 (L) 136 - 144 mmol/L Final 01/27/2025 129 (L) 136 - 144 mmol/L Final 01/27/2025 126 (L) 136 - 144 mmol/L Final I/O: UOP 4,2L. X1 BM. Current Facility-Administered Medications Medication Dose Route Frequency acetaminophen 1,000 mg tab(s) (TYLENOL) 1,000 mg ORAL/FEEDING TUBE q 6 H PRN NaCl 0.9% iv flush bag 20 mL INTRAVENOUS PRN tacrolimus IR 2 mg cap(s) (PROGRAF) 2 mg ORAL DAILY (6 AM) buPROPion XL 300 mg tab(s) (WELLBUTRIN XL) 300 mg ORAL DAILY buPROPion 75 mg tab(s) (WELLBUTRIN) 75 mg ORAL DAILY FLUoxetine 10 mg cap(s) (PROzac) 10 mg ORAL DAILY predniSONE 5 mg tab(s) (DELTASONE) 5 mg ORAL DAILY sulfamethoxazole-trimethoprim 400-80 mg 1 tablet (BACTRIM) [address] 20 mg tab(s) (PROTONIX) 20 mg ORAL DAILY tacrolimus IR 1 mg cap(s) (PROGRAF) 1 mg ORAL DAILY AT 6 PM cefTRIAXone iv piggyback 1 g in dextrose (iso-osmotic) 50 mL (ROCEPHIN) 1 g INTRAVENOUS q 24 H lactated ringers iv infusion 75 mL/hr INTRAVENOUS CONTINUOUS dextrose 15 gram/32 mL 15 g (TRUEPLUS) 15 g ORAL PRN Or glucagon 1 mg injection 1 mg INTRAMUSCULAR PRN Or dextrose 10% iv bolus 12.5 g INTRAVENOUS PRN insulin lispro injection (rapid acting) (ADMElog) SUBCUTANEOUS w MEALS Objective PHYSICAL EXAM: BP 137/74 Pulse 85 Temp (Src) 97.7 (Oral) Resp 18 Ht 5' 7.992 (1.73m) Wt 186 lb 8.2 oz (84.6kg) SpO2 97% BMI 28.37 kg/(m2). O2 Therapy: Room Air Physical Exam Performed General: Awake, slightly drowsy, in no acute distress. AANDOx3. HEENT: Normocephalic, atraumatic. EOMI. Lungs: Clear to auscultation bilaterally. Normal respiratory effort on room air. Cardiovascular: Regular rate and rhythm. No murmurs or gallops. Abdomen: Distended but soft and non-tender to palpation. Right-sided tenderness to palpation without guarding or rebound. Bowel sounds present. Extremities: Warm, well-perfused. Trace bilateral lower extremity edema. Skin: Warm and dry. No rashes or lesions. Neurological: Drowsy to slightly awake, arouses to voice. Speech soft but coherent. Muscle strength grossly intact. No focal neurological deficits. Lines, Drains, and Airways Line Duration Peripheral 01/27/[address] [facility] Left Wrist 20 Gauge 1 day Peripheral 01/27/25 0500 Left Forearm 20 Gauge 1 day Drain Duration Surgically Inserted Drain 01/27/[address] [facility] Nephrostomy Right Lower Quadrant Abdomen <1 day Assessment/Plan Problem List Assessment AND Plan ILDA (acute kidney injury) Complication of transplanted kidney (HCC) Encounter for monitoring tacrolimus therapy Hydronephrosis Immunosuppressive management encounter following kidney transplant (HCC) Nephrolithiasis HOSPITAL COURSE: 54-year-old male with acute renal failure due to retained ureteral stone causing obstruction, poorly controlled diabetes with hyperglycemia and CKD, obstructing 1 cm stone, managed with nephrostomy and antibiotics, hemodynamically stable, neuro intact, respiratory stable on CPAP, blood glucose controlled with sliding scale, and ongoing (more content not included)...[facility] 01-28-2025 NoteHNO ID: [id number] Author: ALTAF DE JESUS MD Service: Interventional Radiology Author Type: Resident Type: Progress Notes Filed: 01/28/2025 08:33 Note Text: INTERVENTIONAL RADIOLOGY PROGRESS NOTE SERVICE DATE: January 28, 2025 SERVICE TIME: 8:31 AM Subjective INTERVAL HPI: doing well overnight IR COURSE: 01/27 - transplant neph tube placement 10F Objective BP 137/74 Pulse 85 Temp 36.5 ?C (97.7 ?F) (Oral) Resp 18 Ht 172.7 cm (5' 7.99) Wt 84.6 kg (186 lb 8.2 oz) SpO2 97% BMI 28.37 kg/m? General: Well appearing, alert, in no acute distress, well-hydrated, well nourished. Flank: Dressings clean dry and intact. Nephrostomy Tube(s): To gravity drainage. Output Right: 4250/24hr clear Recent Labs 01/28/25 0527 01/27/25 1626 01/27/25 0549 WBC 6.53 -- 9.72 HB 13.2 -- 11.9* HCT 37.8* -- 33.5* PLT 206 -- 167 INR -- -- 1.0 APTT -- -- 27.0 NA 134* 129* 126* K 4.6 4.7 4.8 CHLOR 104 99 94* CO2 16* 16* 16* BUN 65* 82* 83* CREAT 4.96* 7.42* 9.90* GLUC 230* 191* 145* CA 8.7 8.4* 8.1* MG -- -- 1.8 P 3.9 -- 5.5* Assessment/Plan 54 year old with a past medical history of ESRD s/p renal transplant 03/2021 who presented with Ilda due to obstructing stone. Subsequently, post procedure day 1 from Interventional Radiology placement of nephrostomy tube. Interventional Radiology will schedule a follow-up clinic visit in 2 weeks for a tube assessment. Interventional Radiology will schedule 6-8 week return appointment for a routine exchange. Supplies and Interventional Radiology educational handout at bedside. Tube teaching was completed with patient at bedside. Please see below for further nephrostomy tube care. Additional printouts of at-home instructions for care of nephrostomy tube are located at: [email or web address] A patient education video for care of a nephrostomy tube is available on YouTube. Please use this link: [email or web address] Recommendations For Nephrostomy Tube Care: Leave tube to gravity at all times . Gently cleanse area around tube insertion site with warm soap and water, rinse, pat dry and apply clean dry dressing every other day and as needed if wet or soiled. If tube stops draining urine and/or patient develops, fever greater than 100.4 F, flank pain, saturated dressings, check tube for kinks, and remove bag at luer lock connection to gently flush drain with 10 ml NS. Then, please notify Interventional Radiology. Interventional Radiology will sign off on this patient . Thank you for the opportunity to share in the medical care of this patient. Please call [phone] if we can be of immediate assistance. For concerns between 4:30PM-7:00AM contact the on-call Interventional Radiology fellow/resident, pager [phone]. SIGNATURE: Altaf De Jesus MD PATIENT NAME: Italo Burgos DATE: January 28, 2025 TIME: 8:31 AM PAGER/CONTACT #: [id number] [facility] NoteHNO ID: [id number] Author: EDWIGE SORENSEN RN Service: Care Management Author Type: Registered Nurse Type: Care Mgt Initial Assessment Filed: 01/27/2025 11:54 Note Text: CARE MANAGEMENT: ASSESSMENT AND DISCHARGE PLAN SERVICE DATE: January 27, 2025 SERVICE TIME: 9:50 AM PCP: Zaida Gaston MD Primary Contact: Extended Emergency Contact Information Primary Emergency Contact: [place] [address] [facility] Mobile Relation: Other Admission Status: Inpatient Insurance Provider: [facility] DUAL COMPLETE PPO SNP Discharge Planning requested by: Per Department Practice Potential Transition Plans To Be Determined Advance Directives Current Advance Directive: None Current Living Arrangements and Support Lives with: Alone (Homeless Intermediate) Type of Residence: (Intermediate) Support: How do you manage to accomplish the following: Independent: Ambulation, Bathe/Shower, Dress, Meals/Meal Prep, Going to the bathroom, Medication Management Current Services/Equipment DME: Rollator Walker Discharge Planning Patient Goal(s): General wellness [place] Explained: [place] Given: No Reason Not Given: Unable to complete with this assessment - revisit Are you interested in bedside delivery of your medications? Yes Discharge Planning Participant(s): Patient Patient/Family Comments: Caregiver Assessment: Caregiver is ready, willing and able to meet the patient's needs as recommended by the inter-professional team: (TBD) Transport at Discharge: Transportation Arrangements: To Be Determined Needs Prior to Discharge: Needs Prior to Discharge: To Be Determined 54M with PMH T2DM c/b ESRD s/p DDRT 03/2021 CKD (baseline cr 1.4-1.6), CAD, HTN, GERD, MDD, L foot infections s/p toe amputations presenting with DKA, ILDA from OSH. Post-Acute Discharge Plan: TBD at this time possible SNF/ECF vs return to correction Met with patient at bedside and introduced myself and the role of Transport Rn. Cm will follow medical course and plan discharge accordingly. SIGNATURE: Edwige Sorensen RN PATIENT NAME: Italo Burgos DATE: January 27, 2025 TIME: 9:50 [facility]05-21-2025 NoteHNO ID: [id number] Author: RAY PINA MD Service: Critical Care Author Type: Physician Type: Progress Notes Filed: 01/27/2025 10:35 Note Text: MICU PROGRESS NOTE Please page MICU Jimenez for any concerns at [id number] Admission Date: 01/27/2025 Hospital Day # 0 ICU Day # 3h Subjective Italo Burgos is a 54M with PMH T2DM c/b ESRD s/p DDRT 03/2021 (envarsus, MMF, pred) with graft CKD (baseline cr 1.4-1.6), CAD, HTN, GERD, MDD, L foot infections s/p toe amputations presenting with DKA, ILDA from OSH. Appears to have hydro with obstructing stone in transplanted kidney, urology consult this AM. Plan Today: - Nephrostomy tube exchange by IR - Urology following, appreciate recs - Transplant nephrology consult Significant PMH/PSH: T2DM c/b ESRD s/p DDRT 03/2021 (envarsus, MMF, pred 5 , tacrolimus) with graft CKD (baseline cr 1.4-1.6) Ppx Bactrim MWF CAD HTN GERD MDD L foot infections s/p toe amputations Objective MEDICATIONS Scheduled Medications insulin regular human, , q 6 H tacrolimus IR, 2 mg, DAILY (6 AM) buPROPion XL, 300 mg, DAILY buPROPion, 75 mg, DAILY FLUoxetine, 10 mg, DAILY predniSONE, 5 mg, DAILY sulfamethoxazole-trimethoprim, 1 tablet, pantoprazole DR, 20 mg, DAILY tacrolimus IR, 1 mg, DAILY AT 6 PM cefTRIAXone, 1 g, q 24 H PRN Meds magnesium sulfate, 2 g, PRN acetaminophen, 1,000 mg, q 6 H PRN insulin regular human, 2-10 Units, PRN dextrose, 15 g, PRN glucagon, 1 mg, PRN dextrose 10%, 12.5-25 g, PRN NaCl 0.9%, 20 mL, PRN ceFAZolin, , X (OR/PROCEDURE) CONTINUOUS midazolam (PF), , X (OR/PROCEDURE) PRN fentaNYL, , X (OR/PROCEDURE) PRN IV/Pressors/Sedation insulin regular ceFAZolin, Last Rate: 2 g (01/27/25814) PHYSICAL EXAM PERFORMED: VITAL SIGNS (last 24hrs min/max): Patient Vitals for the past 24 hrs: BP Temp Temp src Pulse Resp SpO2 Height Weight 01/27/25 0845 -- -- -- 71 -- 94 % -- -- 01/27/25 0840 105/60 -- -- 71 -- 96 % -- -- 01/27/25 0835 106/60 -- -- 72 -- 95 % -- -- 01/27/25 0830 105/58 -- -- 71 -- 97 % -- -- 01/27/25 0825 103/58 -- -- 71 -- 96 % -- -- 01/27/25 0820 103/56 -- -- 71 -- 96 % -- -- 01/27/25 0815 104/55 -- -- 71 -- 97 % -- -- 01/27/25 0800 -- 36.4 ?C (97.6 ?F) Oral -- -- -- -- -- 01/27/25 0700 99/56 -- -- 70 18 95 % -- -- 01/27/25 0600 103/58 -- -- 70 13 97 % -- -- 01/27/25 0530 101/58 36.6 ?C (97.8 ?F) Oral 72 20 97 % 172.7 cm (5' 7.99) 88.2 kg (194 lb 7.1 oz) No exam due to procedure NET FLUID BALANCE: Date 01/26/25 07 - 01/27/25 0659(Not Admitted) 01/27/25 07 - 01/28/25 0659 Shift 7685-8226 0039-2725 7569-9727 24 Hour Total 8137-5719 2195-2161 2071-3185 24 Hour Total INTAKE PO 0 0 PO 0 0 Irrigants 0 0 Irrigant/Flush Amount In mL (I/O) ( Indwelling Urinary Catheter External Facility [facility]) 0 0 Shift Total 0 0 OUTPUT Urine 10 10 Output ( Indwelling Urinary Catheter External Facility [facility]) 10 10 # of BMs Number of BMs 0 x 0 x Shift Total 10 10 Weight (kg) 88.2 88.2 88.2 88.2 88.2 88.2 INDWELLING CATHETERS: Lines, Drains, and Airways Line Duration Peripheral 01/27/[address] [facility] Left Wrist 20 Gauge <1 day Peripheral 01/27/25 0500 Left Forearm 20 Gauge <1 day Drain Duration Indwelling Urinary Catheter External Facility [facility] -- days Surgically Inserted Drain 01/27/[address] [facility] Nephrostomy Right Lower Quadrant Abdomen <1 day DIAGNOSTIC TESTS: CBC: Recent Labs 01/27/25 0549 WBC 9.72 HB 11.9* HCT 33.5* PLT 167 MCV 86.8 RDWCV 11.6 BMP: Recent Labs 01/27/25 0549 GLUC 145* NA 126* K 4.8 CHLOR 94* CO2 16* ANION 16* BUN 83* CREAT 9.90* CHEM: Recent Labs 01/27/25 0549 ALB 2.6* TPROT 5.0* CA 8.1* MG 1.8 P 5.5* HEPATIC: Recent Labs 01/27/25 0549 ALKPHOS 100 ALT 11 AST 13* TBILI 0.5 CARDIAC: No results for input(s): CKTEST, CKMB, CKMBP, TROPT, PBNP in the last 168 hours. COAG: Recent Labs 01/27/25 0549 APTT 27.0 INR 1.0 UA: No results for input(s): PH, SPGR, UGLUC, UBILI, UKET, UHB, UPROT, UROBIL, UWBC, SSA in the last 168 hours. Invalid input(s): NITR ABG/VBG: Respiratory/Nursing Documentation: O2 Therapy: Room Air (01/27/25 0845) MICRO Positive Micro-30 Days No results found for the last 720 hours. IMAGING All imaging has been reviewed. ICU Checklist A= Assess, Prevent, Manage Pain C= Choice of Sedation and Analgesia B= Both Spontaneous Awakening and Breathing Trials D= Delirium: Assess, Prevent and Manage E= Early Mobility/Excercise ICU Mobility: F= Family Engagement and Empowerment ICU Disposition: Prevention: VTE Prophylaxis: A/P of Major Active Problems: All diagnoses were present at time of MICU admission Barriers (more content not included)...[facility]05-20-2025 Radiology Diagnostic study note [facility] Imaging Services [address] [place] [address] Chest PA and Lateral MR#: [id number] Acct: [id number] Name: ITALO BURGOS Rep #: [id number] : 1970 M 54 From: Gallito Jack MD PCP: Dr. Zaida Gaston MD Status: REG E R Study:Chest PA and Lateral Date of Exam: 01/26/25 Exam# [id number] Ordering Dr: Yony Solis DO PROCEDURE: CHEST PA AND LATERAL 01/26/2025 REASON FOR EXAM: COUGH TECHNIQUE: Frontal and lateral views of the chest. COMPARISON: None. FINDINGS: Hardware: None. Heart: Heart size is mildly enlarged. Mediastinum: The mediastinal contour is unremarkable. Lungs: The lungs are clear. Bones: The bones are unremarkable. RAD/Chest PA and Lateral IMPRESSION: NO ACUTE FINDINGS. Reading Location: [id number] CC: Dr. Zaida Gaston MD; Dr. Yony Solis DO ~ Tutorial Laboratory Supervisor: Signed [facility]05-20-2025 Radiology Diagnostic study note [facility] Imaging Services [address] [place], [place] [id number] Abdomen/Pelvis without Cont MR#: [id number] Acct: [id number] Name: ITALO BURGOS Rep #: [id number] : 1970 M 54 From: Gallito Jack MD PCP: Dr. Zaida Gaston MD Status: REG E R Study:Abdomen/Pelvis without Cont Date of Exa m: 01/26/25 Exam# [id number] Ordering Dr: Yony Solis DO PROCEDURE: ABDOMEN/PELVIS WITHOUT CONT 01/26/2025 REASON FOR EXAM: RIGHT SIDE ABD PAIN TECHNIQUE: Abdomen and pelvis CT without intravenous contrast. Noncontrast technique limits evaluation of the abdominal and pelvic viscera. Coronal and Sagittal reconstruction series were provided. One or more dose reduction techniques were used (e.g., Automated exposure control, adjustment of the mA and/or kV according to patient size, use of iterative reconstruction technique). COMPARISON: None. FINDINGS: Mild anasarca. Lung bases: Clear Liver: Normal size. No obvious mass. Gallbladder: Surgically absent. Spleen: Normal size. Pancreas: Normal size. No surrounding inflammation. Adrenals: Normal. Kidneys: Severely atrophic [place] kidneys. Right pelvic transplanted kidney transplanted right kidney ureter 10 mm calculus with severe upstream hydroureteronephrosis. Transplant kidney perinephric stranding which may represent back pressure. Bladder: Markedly concentrically thickened wall. Reproductive Organs: Unremarkable Bowel: Appendix: Lymph nodes: Vasculature: Peritoneum / Retroperitoneum: Mild atherosclerosis. Small volume ascites. Bones: CT/Abdomen/Pelvis without Cont IMPRESSION: 1. Transplanted right kidney obstructing ureteral calculus with [id number] upstream hydroureteronephrosis. 2. Severely thickened urinary bladder wall suspicious for cystitis. 3. Severely atrophic [place] kidneys. 4. Anasarca. 5. Small volume ascites. OVERALL FINAL ASSESSMENT: . LI-RADS is not meant to be used in patients <18 years or patients with cirrhosisdue to congenital hepatic fibrosis or due to vascular disorders, because these patients have a lower chance of developing HCC. Reading Location: [id number] CC: Dr. Zaida Gaston MD; Dr. Yony Solis, DO ~ Tutorial Laboratory Supervisor: Signed [facility]04-30-2025 Telephone encounter Note* Telephone Encounter - Elisabeth Hanson LPN - 01/06/2025 3:31 PM EDT Called and left message for patient to call office back for results. Elisabeth DIANNE Hanson January 06, 2025 3:32 PM [facility]04-30-2025 Miscellaneous Notes* Telephone Encounter - Elisabeth Hanson LPN - 01/06/2025 3:31 PM EDT Called and left message for patient to call office back for results. Elisabeth DIANNE Hanson January 06, 2025 3:32 PM * Telephone Encounter - 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 APRN.CNP - 01/06/2025 1:39 PM EDT Patient needs to reschedule missed appointment to review labs. Also check to see if he has rescheduled with his park activities coordinator as his Hgba1c is greater then 10 so diabetes is very uncontrolled at this time. Thank you 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 APRN.CNP [facility] Telephone encounter Note * Telephone Encounter - 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 APRN.CNP - 01/06/2025 1:39 PM EDT Patient needs to reschedule missed appointment to review labs. Also check to see if he has rescheduled with his park activities coordinator as his Hgba1c is greater then 10 so diabetes is very uncontrolled at this time. Thank you 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 APRN.ANDRE [facility]04-23-2025 NoteHNO ID: [id number] Author: DELIA KAUFMAN APRN.CNP Service: ? Author Type: Nurse Practitioner Type: Progress Notes Filed: 12/30/2024 17:44 Note Text: CC: Patient presents with: Diarrhea: Diarrhea HPI Italo Burgos is a 54 year old male who presents today for concerns of diarrhea. Has had issues with diarrhea after eating for the past 4 years since kidney transplant. Had colonoscopy last year and was ordered cholestyramine powder by the general surgeon to help with this. Was taking medicine for this but became homeless recently and had trouble getting his medicine. Has had a few accidents of his bowel at the homeless correction and has to be seen to be able to continue to stay there. One of these medications he has not had is his cholestyramine powder. Has been taking his transplant medications though. Denies fever, chills, body aches, sore throat, malaise, fatigue, cough,. Wheezing. Shortness of breath, nausea, vomiting, abdominal pain, or any other concerns. DIABETES MELLITUS: Mr. Burgos denies excessive thirst or increased frequency of urination, chest pain or dyspnea , numbness, tingling or pain in extremities, new or unusual visual symptoms, low sugar/hypoglycemic reactions, weight loss/gain, and lightheadedness/dizziness. Follows a diabetic diet some of the time. He is compliant with medication(s) and is tolerating med(s) without any side effects. He reports checking his glucose on a Cgm with typically in the 200s schedule . Follows with Dr. Durand and needs to make an appointment to see her. Patient's last HgA1C was Hemoglobin A1C (%) Date Value 11/26/2023 10.5 10/13/2022 8.6 07/11/2021 8.2 03/23/2021 7.5 Hemoglobin A1C (POCT) (%) Date Value 06/18/2024 7.1 07/13/2022 10.6 ) Last Ophthalmology exam was over a year ago. Needs to call [facility] to schedule. REVIEW OF SYSTEMS See HPI PAST MEDICAL HISTORY Diagnosis Date Acute diastolic (congestive) heart failure ([facility]) Bronchitis Chronic kidney failure, stage 4 (severe) ([facility]) 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 ([facility]) 12/16/2018 Depression Detached retina DM type 2, goal HbA1c < 7% ([facility]) Erectile dysfunction, unspecified erectile dysfunction type ESRD (end stage renal disease) ([facility]) GERD (gastroesophageal reflux disease) Hyperlipidemia Kidney replaced by transplant Kidney stones LUANNE (obstructive sleep apnea) PNA (pneumonia) Proliferative retinopathy 02/10/2019 PTE (post-transplant erythrocytosis) Snoring Unspecified essential hypertension Vitamin D deficiency Vitamin D deficiency PAST SURGICAL HISTORY Procedure Laterality Date AMPUTATION TOE,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 08/08/2018 Done at [facility] by Satish Phan MD CHOLECYSTECTOMY 1998 Cholecystectomy COLONOSCOPY 12/04/2018 COLONOSCOPY SCREENING 04/01/2024 CYSTO W/COMPLEX REMOVAL STONE AND STENT 1999 EGD 12/04/2018 EGD W/O [facility] SPEC VARICIES INJ 04/01/2024 PAST SURGICAL HISTORY OF Left 2012 AND 2014 removal eye fluid with instillation oil ALLERGIES Patient has no known allergies. MEDICATIONS sulfamethoxazole-trimethoprim (BACTRIM) 400-80 mg per tablet Take 1 tablet by mouth every Saturday, Saturday, and Saturday. pantoprazole DR (PROTONIX) 20 mg tablet Take 1 tablet by mouth once daily. predniSONE (DELTASONE) 5 mg tablet Take 1 tablet by mouth once daily. buPROPion XL (WELLBUTRIN XL) 300 mg 24 hr tablet Take 1 tablet by mouth once daily. buPROPion (WELLBUTRIN) 75 mg tablet Take 1 tablet by mouth once daily. FLUoxetine (PROZAC) 10 mg capsule Take 1 capsule by mouth once daily. tacrolimus IR (PROGRAF) 1 mg capsule Take 2 caps in am and 1 cap in pm Blood-Glucose Meter,Continuous (DEXCOM G6 OFFICER CAPTAIN) misc 1 Each continuous. Blood-Glucose Sensor (DEXCOM G6 SENSOR) glenn 1 Each continuous. Blood-Glucose Transmitter (DEXCOM G6 TRANSMITTER) glenn 1 Each continuous. Cholestyramine, Bulk, powd Take one(1) scoop dissolved in two(2) to six(6) ounces(oz) of fluid by mouth daily. carvedilol (COREG) 25 mg tablet Take 1 tablet by mouth two times a day. losartan (COZAAR) 25 mg tablet Take 2 tablets by mouth once daily. mycophenolate sodium DR (MYFORTIC) 180 mg EC tablet Take 2 tablets by mouth two times a day. gabapentin (NEURONTIN) 100 mg capsule Take 1 capsule by mouth daily at bedtime for 180 days. loperamide (IMODIUM) 2 mg cap(s) Take 1 capsule by mouth four times a day as needed. Insulin Syringe-Needle U-100 1 mL 29 gauge x 1/2 1 Each as needed. For Intercavernal Injections pseudoephedrine (SUDAFED) 30 mg tablet Take Four 4 (30 mg) Tablets for an erection lasting more than 2 hours. If not improved in 1 hour MUST go to ER ergocalciferol 50,000 unit capsule (VITAMIN D2, DRISDOL) Take 1 capsule by mouth one time a week. dulaglutide (TRULICITY) 0.75 mg/0.5 mL pen injector Inject 0.75 mg subcutaneously one time a week. insulin 50/50 lispro protamine-lispro units (more content not included)... [facility]01-20-2025 NoteHNO ID: [id number] Author: ZAIDA GASTON MD Service: ? Author Type: Physician Type: Progress Notes Filed: 09/28/2024 15:44 Note Text: Reason for Visit Patient presents with: Follow Up Italo Burgos is a 53 year old male who presents here today for Above Complaints.. Health Maintenance Anxiety Screening BP Controlled (<130/80) Prostate Cancer Screening Discussion HbA1C Influenza Vaccine(1) Covid-19 Vaccine( season) STEPHANIE Kramer is a very pleasant 50-year-old gentleman. kidney transplant on March 09, 2021 end-stage kidney disease from poor diabetic control. He has a history of HTN, Diabetes Mellitus with retinopathy, blind left eye, RLE weakness, CHF, bronchitis, depression, ED, GERD, HPL, renal calculi in the new kidney, LUANNE. S/p amputation of all the left toes. Over the past year since I last saw him he has been through a very rough.. His partner of many years his broken up with him and he has to leave the home that he was staying in because it was her home. He is trying to find his own apartment to stay. He is more up-to-date with taking his medications and doing things for himself now that she is not in the picture.He is able to cook, shop, clean, do laundry, manage bills, needs help with transportation. He makes his own appointment. For exercise he is walking, around 30 mins a day He was very disheartened and was started on Prozac in addition to 375 mg of his Wellbutrin and together he is feeling much better. He has energy, is able to organize himself and his day. Diabetes Mellitus: He notes his sugars are well controlled Seeing Dr Durand. Patient is not on insulin pump yet as he does not want the pump. He is currently on 44 units of insulin in the evening and some in the morning. Sugars are not optimal as he is a little stressed out. Going through some ups and downs right now. Taking a break in relationship from his current partner of 12 years. Staying with a friend, is not very happy but there seems to be no other way to go here. 09/28/24: He is living with his sister, as he is still looking for an apartment. Today he had a low sugar, this happened after along. His sugars are other kim well controlled on insulin. He is losing weight. Around 40 pounds in the past 2 years. He is active and takes medication regularly. We may need to cut down the medication in if he keeps losing weight. Gerd is controlled on protonix, he needs a refill of the medication No problem-specific Assessment AND Plan notes found for this encounter. PAST MEDICAL HISTORY Diagnosis Date Acute diastolic (congestive) heart failure ([facility]) Bronchitis Chronic kidney failure, stage 4 (severe) ([facility]) 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 ([facility]) 12/16/2018 Depression Detached retina DM type 2, goal HbA1c < 7% ([facility]) Erectile dysfunction, unspecified erectile dysfunction type ESRD (end stage renal disease) ([facility]) GERD (gastroesophageal reflux disease) Hyperlipidemia Kidney replaced by transplant Kidney stones LUANNE (obstructive sleep apnea) PNA (pneumonia) Proliferative retinopathy 02/10/2019 PTE (post-transplant erythrocytosis) Snoring Unspecified essential hypertension Vitamin D deficiency Vitamin D deficiency PAST SURGICAL HISTORY Procedure Laterality Date AMPUTATION TOE,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 08/08/2018 Done at [facility] by Satish Phan MD CHOLECYSTECTOMY 1998 Cholecystectomy COLONOSCOPY 12/04/2018 COLONOSCOPY SCREENING 04/01/2024 CYSTO W/COMPLEX REMOVAL STONE AND STENT 1999 EGD 12/04/2018 EGD W/O [facility] SPEC VARICIES INJ 04/01/2024 PAST SURGICAL HISTORY OF Left 2012 AND 2014 removal eye fluid with instillation oil FAMILY HISTORY Problem Relation Age of Onset Colon Cancer Father 53 Diabetes Brother 52 Diabetes Sister Diabetes Mother 78 Heart Attack Mother Cancer Brother 49 lung Diabetes Son Social History Tobacco Use Smoking status: Never Smokeless tobacco: Former Types: Snuff Tobacco comments: snuff x 33 years Quit in 2020 Vaping Use Vaping status: Never Used Substance Use Topics Alcohol use: Not Currently Drug use: Not Currently Types: Marijuana Past medical history, appointments, medications, allergies reviewed. Pertinent Lab/Diagnostic Studies are reviewed and discussed today Current Outpatient Medications: sulfamethoxazole-trimethoprim (BACTRIM) 400-80 mg per tablet pantoprazole DR (PROTONIX) 20 mg tablet predniSONE (DELTASONE) 5 mg tablet buPROPion XL (WELLBUTRIN XL) 300 mg 24 hr tablet buPROPion (WELLBUTRIN) 75 mg tablet FLUoxetine (PROZAC) 10 mg capsule tacrolimus IR (PROGRAF) 1 mg capsule carvedilol (COREG) 25 mg tablet losartan (COZAAR) [address] (MYFORTIC) 180 mg EC tablet gabapentin (NEURONTIN) 100 mg capsule loperamide (IMODIUM) 2 mg cap(s) pseudoephedrine (SUDAFED) 30 mg tablet ergocalciferol 50,000 unit capsu (more content not included)...[facility]01-20-2025 History of Present illness Narrative* Zaida Gaston MD - 09/28/2024 3:17 PM EST Reason for Visit Patient presents with: Follow Up Italo Burgos is a 53 year old male who presents here today for Above Complaints.. Health Maintenance Anxiety Screening BP Controlled (<130/80) Prostate Cancer Screening Discussion HbA1C Influenza Vaccine(1) Covid-19 Vaccine( season) HPI Italo is a very pleasant 50-year-old gentleman. kidney transplant on March 09, 2021 end-stage kidney disease from poor diabetic control. He has a history of HTN, Diabetes Mellitus with retinopathy, blind left eye, RLE weakness, CHF, bronchitis, depression, ED, GERD, HPL, renal calculi in the new kidney, LUANNE. S/p amputation of all the left toes. Over the past year since I last saw him he has been through a very rough.. His partner of many years his broken up with him and he has to leave the home that he was staying in because it was her home. He is trying to find his own apartment to stay. He is more up-to-date with taking his medications and doing things for himself now that she is not in the picture.He is able to cook, shop, clean, do laundry, manage bills, needs help with transportation. He makes his own appointment. For exercise heis walking, around 30 mins a day He was very disheartened and was started on Prozac in addition to 375 mg of his Wellbutrin and together he is feeling much better. He has energy, is able to organize himself and his day. Diabetes Mellitus: He notes his sugars are well controlled Seeing Dr Durand. Patient is not on insulin pump yet as he does not want the pump. He is currently on 44 units of insulin in the evening and some in the morning. Sugars are not optimal as he is a little stressed out. Going through some ups and downs right now. Taking a break in relationship from his current partnerof 12 years. Staying with a friend, is not very happy but there seems to be no other way to go here. 09/28/24: He is living with his sister, as he is still looking for an apartment. Today he had a low sugar, this happened after along. His sugars are other kim well controlled on insulin. He is losing weight. Around 40 pounds in the past 2 years. He is active and takes medication regularly. We may need to cut down the medication in if he keeps losing weight. Gerd is controlled on protonix, he needs a refill of the medication No problem-specific Assessment & Plan notes found for this encounter. PAST MEDICAL HISTORY Diagnosis Date Acute diastolic (congestive) heart failure ([facility]) Bronchitis Chronic kidney failure, stage 4 (severe) ([facility]) 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 ([facility]) 12/16/2018 Depression Detached retina DM type 2, goal HbA1c < 7% ([facility]) Erectile dysfunction, unspecified erectile dysfunction type ESRD (end stage renal disease) (HCC) GERD (gastroesophageal reflux disease) Hyperlipidemia Kidney replaced by transplant Kidney stones LUANNE (obstructive sleep apnea) PNA (pneumonia) Proliferative retinopathy 02/10/2019 PTE (post-transplant erythrocytosis) Snoring Unspecified essential hypertension Vitamin D deficiency Vitamin D deficiency PAST SURGICAL HISTORY Procedure Laterality Date AMPUTATION TOE,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 08/08/2018 Done at [facility] by Satish Phan MD CHOLECYSTECTOMY 1998 Cholecystectomy COLONOSCOPY 12/04/2018 COLONOSCOPY SCREENING 04/01/2024 CYSTO W/COMPLEX REMOVAL STONE & STENT 1999 EGD 12/04/2018 [facility] VARICIES INJ 04/01/2024 PAST SURGICAL HISTORY OF Left 2012 & 2014 removal eye fluid with instillation oil FAMILY HISTORY Problem Relation Age of Onset Colon Cancer Father 53 Diabetes Brother 52 Diabetes Sister Diabetes Mother 78 Heart Attack Mother Cancer Brother 49 lung Diabetes Son Social History Tobacco Use Smoking status: Never Smokeless tobacco: Former Types: Snuff Tobacco comments: snuff x 33 years Quit in 2020 Vaping Use Vaping status: Never Used Substance Use Topics Alcohol use: Not Currently Drug use: Not Currently Types: Marijuana Past medical history, appointments, medications, allergies reviewed. Pertinent Lab/Diagnostic Studies are reviewed and discussed today Current Outpatient Medications: sulfamethoxazole-trimethoprim (BACTRIM) 400-80 mg per tablet pantoprazole DR (PROTONIX) 20 mg tablet predniSONE (DELTASONE) 5 mg tablet buPROPion XL (WELLBUTRIN XL) 300 mg 24 hr tablet buPROPion (WELLBUTRIN) 75 mg tablet FLUoxetine (PROZAC) 10 mg capsule tacrolimus IR (PROGRAF) 1 mg capsule carvedilol (COREG) 25 mg tablet losartan (COZAAR) [address] (MYFORTIC) 180 mg EC tablet gabapentin (NEURONTIN) 100 mg capsule loperamide (IMODIUM) 2 mg cap(s) pseudoephedrine (SUDAFED) 30 mg tablet ergocalciferol 50,000 unit capsule (VITAMIN D2, DRISDOL) dulaglutide (TRULICITY) 0.75 mg/0.5 mL pen injector insulin 50/50 lispro protamine-lispro units/mL (HUMALOG MIX 50-50 KWIKPEN) 100 unit/mL (50-50) pen glucagon 3 mg/actuation nasal spray (BAQSIMI) aspirin 81 mg chewable tablet Blood-Glucose Meter,Continuous (DEXCOM G6 OFFICER CAPTAIN) misc Blood-Glucose Sensor (DEXCOM G6 SENSOR) glenn Blood-Glucose Transmitter (DEXCOM G6 TRANSMITTER) glenn Cholestyramine, Bulk, powd Insulin Syringe-Needle U-100 1 mL 29 gauge x 1/2 Insulin [place], Disposable, (BD ULTRA-FINE SANDRA PEN NEEDLE) 32 gauge x 5/32 MEDICAL SUPPLY Lancets lancets Blood-Glucose Meter monitoring kit blood sugar diagnostic (BLOOD GLUCOSE TEST) test strip fluticasone (FLONASE) 50 mcg/actuation nasal spray CPAP >Compression Knee Highs 30-40 mm ACETAMINOPHEN ORAL Review of Systems CONSTITUTIONAL: No [...] or numbness of concern. Physical Exam BP 120/72 Pulse 95 Resp 16 Wt 86.6 kg (191 lb) BMI 29.04 kg/m General appearance: Well appearing, alert, in no acute distress, well nourished. Skin: Skin color, texture, turgor normal, no suspicious rashes or lesions Head: Normocephalic, no masses, lesions, tenderness or abnormalities Eyes: Anicteric sclera. Pupils are equally round and reactive to light. Extraocular movements are intact. Lungs: Lungs clear to auscultation. No wheezing, rhonchi, rales Heart: RRR without murmur, gallop, or rubs. Feet: No ulcers or lesions, no open wounds b/l legs, know patient with diabetic foot ulcer in the past which are healed and knows neuropathy. ASSESSMENT/PLAN: 1. Hypertension goal BP (blood pressure) < 140/90 - ICD9: 401.9, ICD10: I10 (primary diagnosis) - Controlled - Recommend home blood pressure monitoring, to bring results to next visit - Encouraged sodium restriction, DASH or Mediterranean diet - Recommend regular aerobic exercise 2. Type 1 diabetes mellitus on insulin therapy (HCC) - ICD9: 250.01, ICD10: E10.9 - Controlled - COMPLETE BLOOD COUNT - COMPREHENSIVE METABOLIC PANEL - LIPID PANEL BASIC - THYROID STIMULATING HORMONE 3. Moderate episode of recurrent major depressive disorder (HCC) - ICD9: 296.32, ICD10: F33.1 Cont the current medication. 4. Vitamin D deficiency - ICD9: 268.9, ICD10: E55.9 - VITAMIN D 25 HYDROXY 5. Gastroesophageal reflux disease without esophagitis - ICD9: 530.81, ICD10: K21.9 Refilled - PANTOPRAZOLE 20 MG TABLET,DELAYED RELEASE Zaida Gaston MD documented in [facility] NoteHNO ID: [id number] Author: MATTY LEWIS MA Service: ? Author Type: Insurance Account Executive Type: Progress Notes Filed: 09/15/2024 10:11 Note Text: POPULATION HEALTH NAVIGATION OUTREACH Action/FYI Orders removed since provider did not sign within 7 days and encounter closed. Please have the office reach out to the patient to coordinate any further testing/appointment needs. Reason for Outreach Care Gap/HCC or Scheduling Wellness Visits Care Gaps due: Medicare Annual Wellness Visit Diabetic Eye Exam KED Patient Contacted: Unable or unnecessary to reach patient: Left message VivaRay message sent Navigation Signature: Matty Lewis MA September 15, 2024 10:09 [facility]01-07-2025 History of Present illness Narrative* Matty Lewis MA - 09/15/2024 10:09 AM EST POPULATION HEALTH NAVIGATION OUTREACH Action/FYI Orders removed since provider did not sign within 7 days and encounter closed. Please have the office reach out to the patient to coordinate any further testing/appointment needs. Reason for Outreach Care Gap/HCC or Scheduling Wellness Visits Care Gaps due: Medicare Annual Wellness Visit Diabetic Eye Exam KED Patient Contacted: Unable or unnecessary to reach patient: Left message VivaRay message sent Navigation Signature: Matty Lewis MA September 15, 2024 10:09 AM * Matty Lewis MA - 09/08/2024 1:38 PM EST POPULATION HEALTH NAVIGATION OUTREACH Action/FYI Topic Due (Y or N) Comments Medicare Wellness Y PCP Follow up Mammogram Colorectal Cancer Screening A1C Dilated Retinal Exam (LIVIER) Y KED (UACR and eGFR) Y HCC Y Flu Vaccine Care Everywhere Reviewed MyChart Activation Updated Appointment Note Reason for Outreach Care Gap/HCC or Scheduling Wellness Visits Care Gaps due: Medicare Annual Wellness Visit Diabetic Eye Exam KED Patient Contacted: Unable or unnecessary to reach patient: Left message VivaRay message sent Navigation Signature: Matty Lewis MA September 08, 2024 1:38 PM documented in this encounterMary [facility]12-31-2024 NoteHNO ID: [id number] Author: MATTY LEWIS MA Service: ? Author Type: Insurance Account Executive Type: Progress Notes Filed: 09/15/2024 10:11 Note Text: POPULATION HEALTH NAVIGATION OUTREACH Action/FYI Topic Due (Y or N) Comments Medicare Wellness Y PCP Follow up Mammogram Colorectal Cancer Screening A1C Dilated Retinal Exam (LIVIER) Y KED (UACR and eGFR) Y HCC Y Flu Vaccine Care Everywhere Reviewed MyChart Activation Updated Appointment Note Reason for Outreach Care Gap/HCC or Scheduling Wellness Visits Care Gaps due: Medicare Annual Wellness Visit Diabetic Eye Exam KED Patient Contacted: Unable or unnecessary to reach patient: Left message VivaRay message sent Navigation Signature: Matty Lewis MA September 08, 2024 1:38 [facility]12-31-2024 NotePatient Outreach (NETNAV) ITALO BURGOS ([id number]) 1970 M Date Time Provider Department 09/08/24 MATTY LEWIS During your visit today, we recorded the following information about you: Matty Lewis MA 09/15/2024 10:11 AM Signed POPULATION HEALTH NAVIGATION OUTREACH Action/FYI Topic Due (Y or N) Comments Medicare Wellness Y PCP Follow up Mammogram Colorectal Cancer Screening A1C Dilated Retinal Exam (LIVIER) Y KED (UACR and eGFR) Y HCC Y Flu Vaccine Care Everywhere Reviewed MyChart Activation Updated Appointment Note Reason for Outreach Care Gap/HCC or Scheduling Wellness Visits Care Gaps due: Medicare Annual Wellness Visit Diabetic Eye Exam KED Patient Contacted: Unable or unnecessary to reach patient: Left message VivaRay message sent Navigation Signature: Matty Lewis MA September 08, 2024 1:38 PM Matty Lewis MA 09/15/2024 10:11 AM Signed POPULATION HEALTH NAVIGATION OUTREACH Action/FYI Orders removed since provider did not sign within 7 days and encounter closed. Please have the office reach out to the patient to coordinate any further testing/appointment needs. Reason for Outreach Care Gap/HCC or Scheduling Wellness Visits Care Gaps due: Medicare Annual Wellness Visit Diabetic Eye Exam KED Patient Contacted: Unable or unnecessary to reach patient: Left message VivaRay message sent Navigation Signature: Matty Lewis MA September 15, 2024 10:09 AM Allergies As of Date: 09/08/2024 (No Known Allergies) Date Reviewed: 06/18/2024 Reviewed by: Elisabeth Hanson LPN - Fully Assessed Reason for Visit: Population Health Navigation Outreach [3910] Cmt: [facility] WORKBERAH CESAR PCSA Visit Diagnosis:Type 1 diabetes mellitus on insulin therapy (HCC) [E10.9] Order(s):ALBUMIN/CREATININE RATIO, URINE [SQUACR] Order #: [id number] FUTURE Prescriptions as of 09/15/2024 - pantoprazole DR (PROTONIX) 20 mg tablet Take 1 tablet by mouth once daily. - predniSONE (DELTASONE) 5 mg tablet Take 1 tablet by mouth once daily. - buPROPion XL (WELLBUTRIN XL) 300 mg 24 hr tablet Take 1 tablet by mouth once daily. - buPROPion (WELLBUTRIN) 75 mg tablet Take 1 tablet by mouth once daily. - FLUoxetine (PROZAC) 10 mg capsule Take 1 capsule by mouth once daily. - tacrolimus IR (PROGRAF) 1 mg capsule Take 2 caps in am and 1 cap in pm - Blood-Glucose Meter,Continuous (DEXCOM G6 OFFICER CAPTAIN) misc 1 Each continuous. - Blood-Glucose Sensor (DEXCOM G6 SENSOR) glenn 1 Each continuous. - Blood-Glucose Transmitter (DEXCOM G6 TRANSMITTER) glenn 1 Each continuous. - Cholestyramine, Bulk, powd Take one(1) scoop dissolved in two(2) to six(6) ounces(oz) of fluid by mouth daily. - carvedilol (COREG) 25 mg tablet Take 1 tablet by mouth two times a day. - losartan (COZAAR) 25 mg tablet Take 2 tablets by mouth once daily. - mycophenolate sodium DR (MYFORTIC) 180 mg EC tablet Take 2 tablets by mouth two times a day. - gabapentin (NEURONTIN) 100 mg capsule Take 1 capsule by mouth daily at bedtime for 180 days. - loperamide (IMODIUM) 2 mg cap(s) Take 1 capsule by mouth four times a day as needed. - Insulin Syringe-Needle U-100 1 mL 29 gauge x 1/2 1 Each as needed. For Intercavernal Injections - sulfamethoxazole-trimethoprim (BACTRIM) 400-80 mg per tablet Take 1 tablet by mouth every Saturday, Saturday, and Saturday. - pseudoephedrine (SUDAFED) 30 mg tablet Take Four 4 (30 mg) Tablets for an erection lasting more than 2 hours. If not improved in 1 hour MUST go to ER - ergocalciferol 50,000 unit capsule (VITAMIN D2, DRISDOL) Take 1 capsule by mouth one time a week. - dulaglutide (TRULICITY) 0.75 mg/0.5 mL pen injector Inject 0.75 mg subcutaneously one time a week. - insulin 50/50 lispro protamine-lispro units/mL (HUMALOG MIX 50-50 KWIKPEN) 100 unit/mL (50-50) pen Inject 30 Units subcutaneously daily at bedtime. - Insulin [place], Disposable, (BD ULTRA-FINE SANDRA PEN NEEDLE) 32 gauge x 5/32 Use as directed four times daily - MEDICAL SUPPLY D/C oxygen - Lancets lancets Test Blood Sugar 3 x/day. Dx E11.8 Insulin Dependent, One Touch Verio brand preferred - Blood-Glucose Meter monitoring kit Glucose Meter of Choice, One Touch Verio preferred - Kit - Dx E11.8 Insulin Dependent, Test blood sugar three times a day - blood sugar diagnostic (BLOOD GLUCOSE TEST) test strip One Touch Verio preferred - Kit - Dx E11.8 Insulin Dependent, Test blood sugar three times a day - glucagon 3 mg/actuation nasal spray (BAQSIMI) Use 1 [place] in the nose as needed for low blood sugar. May repeat after 15 minutes using a new device if there is no response. - aspirin 81 mg chewable tablet chew and swallow 1 tablet by mouth once daily. - fluticasone (FLONASE) 50 mcg/actuation nasal spray Use 2 Sprays in each nostril once daily. - CPAP Initi (more content not included)...[facility]11-22-2024 Telephone encounter Note* Telephone Encounter - Monik Chinchilla MA - 07/31/2024 3:17 PM EST Faxed. [facility] Miscellaneous Notes* Telephone Encounter - Monik Chinchilla MA - 07/31/2024 3:17 PM EST Faxed. * Telephone Encounter - Josseline Murphy RN - 07/31/2024 1:13 PM EST Patient calls and states that he needs his belly pills Patient unsure of the name. States that they help make his belly feel better. The patient has been identified by name and date of : Yes Caregiver verified no other encounters exist for this prescription request: Yes Caregiver confirmed with patient/requestor that no other refills are due, in the near future, with this provider at this time: Yes The last office visit in the department: 06/18/2024 Does the patient have a future office visit with this provider/department: Yes 09/21/2024 Requested Prescriptions Pending Prescriptions Disp Refills pantoprazole DR (PROTONIX) 20 mg tablet 90 tablet 3 Sig: Take 1 tablet by mouth once daily. Josseline Murphy RN July 31, 2024 1:14 PM documented in this encounterMary [facility]11-22-[facility]24 Telephone encounter Note * Telephone Encounter - Josseline Murphy RN - 07/31/2024 1:13 PM EST Patient calls and states that he needs his belly pills Patient unsure of the name. States that they help make his belly feel better. The patient has been identified by name and date of : Yes Caregiver verified no other encounters exist for this prescription request: Yes Caregiver confirmed with patient/requestor that no other refills are due, in the near future, with this provider at this time: Yes The last office visit in the department: 06/18/2024 Does the patient have a future office visit with this provider/department: Yes 09/21/2024 Requested Prescriptions Pending Prescriptions Disp Refills pantoprazole DR (PROTONIX) 20 mg tablet 90 tablet 3 Sig: Take 1 tablet by mouth once daily. Josseline Murphy RN July 31, 2024 1:14 PM [facility] Evaluation note* Diagnosis Onset Date Resolution Status Admit Date Diabetic nephropathy chronic [facility] 2023 10:37am Diabetic retinopathy [facility] 2023 10:37am Hypertension chronic July 10:37am Overweight chronic July 28, 2024 10:37am Type 2 diabetes mellitus wit h diabetic polyneuropathy chronic July 28, 2024 10:37am [facility] Work Phone: [phone]) 900-931211-04-2024 Miscellaneous Notes* Telephone Encounter - Torrie Moore LPN - 07/13/2024 3:18 PM EST Prescription Refill Information The patient has been identified by name and date of : Yes Caregiver verified no other encounters exist for this prescription request: Yes Caregiver confirmed with patient/requestor that no other refills are due, in the near future, with this provider at this time: Yes The last office visit in the department: 06/18/24 Does the patient have a future office visit with this provider/department: Yes 09/21/24 Requested Prescriptions Pending Prescriptions Disp Refills buPROPion XL (WELLBUTRIN XL) 300 mg 24 hr tablet 90 tablet 3 Sig: Take 1 tablet by mouth once daily. buPROPion (WELLBUTRIN) 75 mg tablet 90 tablet 3 Sig: Take 1 tablet by mouth once daily. FLUoxetine (PROZAC) 10 mg capsule 90 capsule 3 Sig: Take 1 capsule by mouth once daily. Torrie Moore LPN July 13, 2024 3:19 PM documented in this encounter[facility]11-[facility]-2024 Telephone encounter Note * Telephone Encounter - Torrie Moore LPN - 07/13/2024 3:18 PM EST Prescription Refill Information The patient has been identified by name and date of : Yes Caregiver verified no other encounters exist for this prescription request: Yes Caregiver confirmed with patient/requestor that no other refills are due, in the near future, with this provider at this time: Yes The last office visit in the department: 06/18/24 Does the patient have a future office visit with this provider/department: Yes 09/21/24 Requested Prescriptions Pending Prescriptions Disp Refills buPROPion XL (WELLBUTRIN XL) 300 mg 24 hr tablet 90 tablet 3 Sig: Take 1 tablet by mouth once daily. buPROPion (WELLBUTRIN) 75 mg tablet 90 tablet 3 Sig: Take 1 tablet by mouth once daily. FLUoxetine (PROZAC) 10 mg capsule 90 capsule 3 Sig: Take 1 capsule by mouth once daily. Torrie Moore LPN July 13, 2024 3:19 PM [facility]-04-[facility] NoteHNO ID: [id number] Author: MATTY LEWIS MA Service: ? Author Type: Insurance Account Executive Type: Progress Notes Filed: 07/13/2024 13:24 Note Text: POPULATION HEALTH NAVIGATION OUTREACH Action/FYI FLIP APPOINTMENT to medicare wellness exam 09-21-24 BP control HCC CLOSURE Reason for Outreach Care Gap/HCC or Scheduling Wellness Visits Care Gaps due: Medicare Annual Wellness Visit Controlling Blood Pressure Patient Contacted: Unable or unnecessary to reach patient: HCC related Flipped existing appointment Patient already scheduled Updated appointment notes Navigation Signature: Matty Lewis MA July 13, 2024 9:39 [facility]11-04-2024 History of Present illness Narrative* Matty Lewis MA - 07/13/2024 9:39 AM EST POPULATION HEALTH NAVIGATION OUTREACH Action/FYI FLIP APPOINTMENT to medicare wellness exam 09-21-24 BP control HCC CLOSURE Reason for Outreach Care Gap/HCC or Scheduling Wellness Visits Care Gaps due: Medicare Annual Wellness Visit Controlling Blood Pressure Patient Contacted: Unable or unnecessary to reach patient: HCC related Flipped existing appointment Patient already scheduled Updated appointment notes Navigation Signature: Matty Lewis MA July 13, 2024 9:39 AM documented in this encounterMary [facility]11-04-[facility] NotePatient Outreach (NETNAV) ITALO BURGOS ([id number]) 1970 M Date Time Provider Department 07/13/24 MATTY LEWIS NETROBBIE During your visit today, we recorded the following information about you: Matty Lewis MA 07/13/2024 1:24 PM Signed POPULATION HEALTH NAVIGATION OUTREACH Action/FYI FLIP APPOINTMENT to medicare wellness exam 09-21-24 BP control HCC CLOSURE Reason for Outreach Care Gap/HCC or Scheduling Wellness Visits Care Gaps due: Medicare Annual Wellness Visit Controlling Blood Pressure Patient Contacted: Unable or unnecessary to reach patient: HCC related Flipped existing appointment Patient already scheduled Updated appointment notes Navigation Signature: Matty Lewis MA July 13, 2024 9:39 AM Allergies As of Date: 07/13/2024 (No Known Allergies) Date Reviewed: 06/18/2024 Reviewed by: Elisabeth Hanson LPN - Fully Assessed Reason for Visit: Population Health Navigation Outreach [3910] Cmt: [facility] LUCIA CESAR PCSA Prescriptions as of 07/13/2024 - tacrolimus IR (PROGRAF) 1 mg capsule Take 2 caps in am and 1 cap in pm - Blood-Glucose Meter,Continuous (DEXCOM G6 OFFICER CAPTAIN) misc 1 Each continuous. - Blood-Glucose Sensor (DEXCOM G6 SENSOR) glenn 1 Each continuous. - Blood-Glucose Transmitter (DEXCOM G6 TRANSMITTER) glenn 1 Each continuous. - Cholestyramine, Bulk, powd Take one(1) scoop dissolved in two(2) to six(6) ounces(oz) of fluid by mouth daily. - carvedilol (COREG) 25 mg tablet Take 1 tablet by mouth two times a day. - FLUoxetine (PROZAC) 10 mg capsule Take 1 capsule by mouth once daily. - losartan (COZAAR) 25 mg tablet Take 2 tablets by mouth once daily. - mycophenolate sodium DR (MYFORTIC) 180 mg EC tablet Take 2 tablets by mouth two times a day. - gabapentin (NEURONTIN) 100 mg capsule Take 1 capsule by mouth daily at bedtime for 180 days. - loperamide (IMODIUM) 2 mg cap(s) Take 1 capsule by mouth four times a day as needed. - Insulin Syringe-Needle U-100 1 mL 29 gauge x 1/2 1 Each as needed. For Intercavernal Injections - buPROPion (WELLBUTRIN) 75 mg tablet Take 1 tablet by mouth once daily. - buPROPion XL (WELLBUTRIN XL) 300 mg 24 hr tablet Take 1 tablet by mouth once daily. - sulfamethoxazole-trimethoprim (BACTRIM) 400-80 mg per tablet Take 1 tablet by mouth every Saturday, Saturday, and Saturday. - pseudoephedrine (SUDAFED) 30 mg tablet Take Four 4 (30 mg) Tablets for an erection lasting more than 2 hours. If not improved in 1 hour MUST go to ER - ergocalciferol 50,000 unit capsule (VITAMIN D2, DRISDOL) Take 1 capsule by mouth one time a week. - predniSONE (DELTASONE) 5 mg tablet Take 1 tablet by mouth once daily. - dulaglutide (TRULICITY) 0.75 mg/0.5 mL pen injector Inject 0.75 mg subcutaneously one time a week. - insulin 50/50 lispro protamine-lispro units/mL (HUMALOG MIX 50-50 KWIKPEN) 100 unit/mL (50-50) pen Inject 30 Units subcutaneously daily at bedtime. - Insulin [place], Disposable, (BD ULTRA-FINE SANDRA PEN NEEDLE) 32 gauge x 5/32 Use as directed four times daily - MEDICAL SUPPLY D/C oxygen - Lancets lancets Test Blood Sugar 3 x/day. Dx E11.8 Insulin Dependent, One Touch Verio brand preferred - Blood-Glucose Meter monitoring kit Glucose Meter of Choice, One Touch Verio preferred - Kit - Dx E11.8 Insulin Dependent, Test blood sugar three times a day - blood sugar diagnostic (BLOOD GLUCOSE TEST) test strip One Touch Verio preferred - Kit - Dx E11.8 Insulin Dependent, Test blood sugar three times a day - blood sugar diagnostic (BLOOD GLUCOSE TEST) test strip TEST BLOOD SUGAR 3 TIMES PER DAY. DX: 250.E11.9. INSULIN DEP: yes - glucagon 3 mg/actuation nasal spray (BAQSIMI) Use 1 [place] in the nose as needed for low blood sugar. May repeat after 15 minutes using a new device if there is no response. - aspirin 81 mg chewable tablet chew and swallow 1 tablet by mouth once daily. - fluticasone (FLONASE) 50 mcg/actuation nasal spray Use 2 Sprays in each nostril once daily. - CPAP Initiate Auto PAP @ 5-20 cm of water with humidification. Mask (per patient preference) optional chin strap (if indicated) , filters, tubing, humidifier and lifetime supplies. - >Compression Knee Highs 30-40 mm KNEE HIGH COMPRESSION STOCKINGS, 30-40 MM, I DX: EDEMA - ACETAMINOPHEN ORAL Take by mouth. 1000 mg bid for pain / aches Problem List As Of Date 07/13/2024 Noted Resolved Uncontrolled type 2 diabetes mellitus with comp*04/17/2006 Hypertension goal BP (blood pressure) < 140/90 *04/17/2006 Other hyperlipidemia [E78.49] 04/17/2006 Depressive disorder, not elsewhere classified [*04/17/2006 04/02/2019 ED (erectile dysfunction) [N52.9] 09/30/2014 Lower urinary tract symptoms (LUTS) [R39.9] 09/30/2014 History of kidney stones [Z87.442] 09/30/2014 Microscopic hematuria [R31.29] 09/30/2014 Diabetic polyneu (more content not included)...[facility] 06-23-2024 Telephone encounter Note* Telephone Encounter - Amanda Hayes LISW - 06/23/2024 10:57 AM EDT SW returned pt's phone call. Pt stated his Envarsus went to $92 a month. Pt reports he still has [facility] Dual (Medicare & Medicaid) and he is not sure why his copay went up. SW informed pt that they can apply for assistance for envarsus via [employer]. SW emailed pt his portion of the envarsus application, as well as a 30 day copay card. SW will work on her portion of the application. Pt denies any other questions/concerns at this time. Pt has SW contact information for any future questions/concerns. MATTHEW [employer] Paving Machine Operator [facility] Work Phone: [phone] 350-403310-15-2024 Miscellaneous Notes* Telephone Encounter - Amanda Hayes LISW - 06/23/2024 10:57 AM EDT SW returned pt's phone call. Pt stated his Envarsus went to $92 a month. Pt reports he still has [facility] Dual (Medicare & Medicaid) and he is not sure why his copay went up. SW informed pt that they can apply for assistance for envarsus via [employer]. SW emailed pt his portion of the envarsus application, as well as a 30 day copay card. SW will work on her portion of the application. Pt denies any other questions/concerns at this time. Pt has SW contact information for any future questions/concerns. MATTHEW Sahu [employer] Paving Machine Operator documented in this encounterMary [facility]10-10-2024 NoteHNO ID: [id number] Author: ZAIDA GASTON MD Service: ? Author Type: Physician Type: Progress Notes Filed: 06/18/2024 13:00 Note Text: Reason for Visit Patient presents with: Stephanieeck Italo Burgos is a 53 year old male who presents here today for Above Complaints.. Health Maintenance Anxiety Screening BP Controlled (<130/80) Prostate Cancer Screening Discussion HbA1C Influenza Vaccine(1) Covid-19 Vaccine( season) STEPHANIE Kramer is a very pleasant 50-year-old gentleman. kidney transplant on March 09, 2021 end-stage kidney disease from poor diabetic control. He has a history of HTN, Diabetes Mellitus with retinopathy, blind left eye, RLE weakness, CHF, bronchitis, depression, ED, GERD, HPL, renal calculi in the new kidney, LUANNE. S/p amputation of all the left toes. Over the past year since I last saw him he has been through a very rough.. His partner of many years his broken up with him and he has to leave the home that he was staying in because it was her home. He is trying to find his own apartment to stay. He is more up-to-date with taking his medications and doing things for himself now that she is not in the picture.He is able to cook, shop, clean, do laundry, manage bills, needs help with transportation. He makes his own appointment. For exercise he is walking, around 30 mins a day He was very disheartened and was started on Prozac in addition to 375 mg of his Wellbutrin and together he is feeling much better. He has energy, is able to organize himself and his day. Diabetes Mellitus: He notes his sugars are well controlled Seeing Dr Durand. Patient is not on insulin pump yet as he does not want the pump. He is currently on 44 units of insulin in the evening and some in the morning. Sugars are not optimal as he is a little stressed out. Going through some ups and downs right now. Taking a break in relationship from his current partner of 12 years. Staying with a friend, is not very happy but there seems to be no other way to go here. No problem-specific Assessment AND Plan notes found for this encounter. PAST MEDICAL HISTORY Diagnosis Date Acute diastolic (congestive) heart failure (HCC) Bronchitis Chronic kidney failure, stage 4 (severe) (HCC) 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 ([facility]) 12/16/2018 Depression Detached retina DM type 2, goal HbA1c < 7% ([facility]) Erectile dysfunction, unspecified erectile dysfunction type ESRD (end stage renal disease) ([facility]) GERD (gastroesophageal reflux disease) Hyperlipidemia Kidney replaced by transplant Kidney stones LUANNE (obstructive sleep apnea) PNA (pneumonia) Proliferative retinopathy 02/10/2019 PTE (post-transplant erythrocytosis) Snoring Unspecified essential hypertension Vitamin D deficiency Vitamin D deficiency PAST SURGICAL HISTORY Procedure Laterality Date AMPUTATION TOE,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 08/08/2018 Done at [facility] by Satish Phan MD CHOLECYSTECTOMY 1998 Cholecystectomy COLONOSCOPY 12/04/2018 COLONOSCOPY SCREENING 04/01/2024 CYSTO W/COMPLEX REMOVAL STONE AND STENT 1999 [facility]04[facility] VARICIES INJ 04/01/2024 PAST SURGICAL HISTORY OF Left 2012 AND 2014 removal eye fluid with instillation oil FAMILY HISTORY Problem Relation Age of Onset Colon Cancer Father 53 Diabetes Brother 52 Diabetes Sister Diabetes Mother 78 Heart Attack Mother Cancer Brother 49 lung Diabetes Son Social History Tobacco Use Smoking status: Never Smokeless tobacco: Former Types: Snuff Tobacco comments: snuff x 33 years Quit in 2020 Vaping Use Vaping status: Never Used Substance Use Topics Alcohol use: Not Currently Drug use: Not Currently Types: Marijuana Past medical history, appointments, medications, allergies reviewed. Pertinent Lab/Diagnostic Studies are reviewed and discussed today Current Outpatient Medications: tacrolimus IR (PROGRAF) 1 mg capsule Blood-Glucose Meter,Continuous (DEXCOM G6 OFFICER CAPTAIN) misc Blood-Glucose Sensor (DEXCOM G6 SENSOR) gelnn Blood-Glucose Transmitter (DEXCOM G6 TRANSMITTER) glenn Cholestyramine, Bulk, powd carvedilol (COREG) 25 mg tablet FLUoxetine (PROZAC) 10 mg capsule losartan (COZAAR) [address] (MYFORTIC) 180 mg EC tablet gabapentin (NEURONTIN) 100 mg capsule loperamide (IMODIUM) 2 mg cap(s) buPROPion (WELLBUTRIN) 75 mg tablet buPROPion XL (WELLBUTRIN XL) 300 mg 24 hr tablet sulfamethoxazole-trimethoprim (BACTRIM) 400-80 mg per tablet pseudoephedrine (SUDAFED) 30 mg tablet ergocalciferol 50,000 unit capsule (VITAMIN D2, DRISDOL) predniSONE (DELTASONE) 5 mg tablet dulaglutide (TRULICITY) 0.75 mg/0.5 mL pen injector insulin 50/50 lispro protamine-lispro units/mL (HUMALOG MIX 50-50 KWIKPEN) 100 unit/mL (50-50) pen Lancets lancets glucagon 3 mg/actuation nasal spray (BAQSIMI) aspirin 81 mg chewable tablet fluticasone (more content not included)...[facility]10-10-2024 History of Present illness Narrative* Zaida Gaston MD - 06/18/2024 11:59 AM EDT Reason for Visit Patient presents with: Recheck Italo Burgos is a 53 year old male who presents here today for Above Complaints.. Health Maintenance Anxiety Screening BP Controlled (<130/80) Prostate Cancer Screening Discussion HbA1C Influenza Vaccine(1) Covid-19 Vaccine( season) STEPHANIE Kramer is a very pleasant 50-year-old gentleman. kidney transplant on March 09, 2021 end-stage kidney disease from poor diabetic control. He has a history of HTN, Diabetes Mellitus with retinopathy, blind left eye, RLE weakness, CHF, bronchitis, depression, ED, GERD, HPL, renal calculi in the new kidney, LUANNE. S/p amputation of all the left toes. Over the past year since I last saw him he has been through a very rough.. His partner of many years his broken up with him and he has to leave the home that he was staying in because it was her home. He is trying to find his own apartment to stay. He is more up-to-date with taking his medications and doing things for himself now that she is not in the picture.He is able to cook, shop, clean, do laundry, manage bills, needs help with transportation. He makes his own appointment. For exercise heis walking, around 30 mins a day He was very disheartened and was started on Prozac in addition to 375 mg of his Wellbutrin and together he is feeling much better. He has energy, is able to organize himself and his day. Diabetes Mellitus: He notes his sugars are well controlled Seeing Dr Durand. Patient is not on insulin pump yet as he does not want the pump. He is currently on 44 units of insulin in the evening and some in the morning. Sugars are not optimal as he is a little stressed out. Going through some ups and downs right now. Taking a break in relationship from his current partnerof 12 years. Staying with a friend, is not very happy but there seems to be no other way to go here. No problem-specific Assessment & Plan notes found for this encounter. PAST MEDICAL HISTORY Diagnosis Date Acute diastolic (congestive) heart failure (HCC) Bronchitis Chronic kidney failure, stage 4 (severe) (HCC) 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 ([facility]) 12/16/2018 Depression Detached retina DM type 2, goal HbA1c < 7% ([facility]) Erectile dysfunction, unspecified erectile dysfunction type ESRD (end stage renal disease) ([facility]) GERD (gastroesophageal reflux disease) Hyperlipidemia Kidney replaced by transplant Kidney stones LUANNE (obstructive sleep apnea) PNA (pneumonia) Proliferative retinopathy 02/10/2019 PTE (post-transplant erythrocytosis) Snoring Unspecified essential hypertension Vitamin D deficiency Vitamin D deficiency PAST SURGICAL HISTORY Procedure Laterality Date AMPUTATION TOE,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 08/08/2018 Done at [facility] by Satish Phan MD CHOLECYSTECTOMY 1998 Cholecystectomy COLONOSCOPY 12/04/2018 COLONOSCOPY SCREENING 04/01/2024 CYSTO W/COMPLEX REMOVAL STONE & STENT 1999 EGD 12/04/2018 EGD W/O [facility] SPEC VARICIES INJ 04/01/2024 PAST SURGICAL HISTORY OF Left 2012 & 2014 removal eye fluid with instillation oil FAMILY HISTORY Problem Relation Age of Onset Colon Cancer Father 53 Diabetes Brother 52 Diabetes Sister Diabetes Mother 78 Heart Attack Mother Cancer Brother 49 lung Diabetes Son Social History Tobacco Use Smoking status: Never Smokeless tobacco: Former Types: Snuff Tobacco comments: snuff x 33 years Quit in 2020 Vaping Use Vaping status: Never Used Substance Use Topics Alcohol use: Not Currently Drug use: Not Currently Types: Marijuana Past medical history, appointments, medications, allergies reviewed. Pertinent Lab/Diagnostic Studies are reviewed and discussed today Current Outpatient Medications: tacrolimus IR (PROGRAF) 1 mg capsule Blood-Glucose Meter,Continuous (DEXCOM G6 OFFICER CAPTAIN) misc Blood-Glucose Sensor (DEXCOM G6 SENSOR) glenn Blood-Glucose Transmitter (DEXCOM G6 TRANSMITTER) glenn Cholestyramine, Bulk, powd carvedilol (COREG) 25 mg tablet FLUoxetine (PROZAC) 10 mg capsule losartan (COZAAR) [address] (MYFORTIC) 180 mg EC tablet gabapentin (NEURONTIN) 100 mg capsule loperamide (IMODIUM) 2 mg cap(s) buPROPion (WELLBUTRIN) 75 mg tablet buPROPion XL (WELLBUTRIN XL) 300 mg 24 hr tablet sulfamethoxazole-trimethoprim (BACTRIM) 400-80 mg per tablet pseudoephedrine (SUDAFED) 30 mg tablet ergocalciferol 50,000 unit capsule (VITAMIN D2, DRISDOL) predniSONE (DELTASONE) 5 mg tablet dulaglutide (TRULICITY) 0.75 mg/0.5 mL pen injector insulin 50/50 lispro protamine-lispro units/mL (HUMALOG MIX 50-50 KWIKPEN) 100 unit/mL (50-50) pen Lancets lancets glucagon 3 mg/actuation nasal spray (BAQSIMI) aspirin 81 mg chewable tablet fluticasone (FLONASE) 50 mcg/actuation nasal spray CPAP >Compression Knee Highs 30-40 mm ACETAMINOPHEN ORAL Insulin Syringe-Needle U-100 1 mL 29 gauge x 1/2 Insulin [place], Disposable, (BD ULTRA-FINE SANDRA PEN NEEDLE) 32 gauge x 5/32 MEDICAL SUPPLY Blood-Glucose Meter monitoring kit blood sugar diagnostic (BLOOD GLUCOSE TEST) test strip blood sugar diagnostic (BLOOD GLUCOSE TEST) test strip Review of Systems CONSTITUTIONAL: No fevers, chills [...] or numbness of concern. Physical Exam BP 151/96 (BP Site: Left Arm) Pulse 100 Wt 91.8 kg (202 lb 6.4 oz) SpO2 99% BMI 30.77 kg/m General appearance: Well appearing, alert, in no [...] murmur, gallop, or rubs. Extremities: No deformities, edema, skin discoloration, clubbing or cyanosis. Good capillary refill. ASSESSMENT/PLAN: 1. Type 1 diabetes mellitus on insulin therapy (HCC) - ICD9: 250.01, ICD10: E10.9 (primary diagnosis) Well controlled at this time, to cont the exercise , diet - HEMOGLOBIN A1C (POC) 2. Encounter for immunization - ICD9: V03.89, ICD10: Z23 - INFLUENZA VACCINE, AGE 6MO-64YR, TRIVALENT (AFLURIA, FLULAVAL, FLUVIRIN, FLUZONE) 3. Hypertension goal BP (blood pressure) < 140/90 - ICD9: 401.9, ICD10: I10 - Controlled - Recommend home blood pressure monitoring, to bring results to next visit - Encouraged sodium restriction, DASH or Mediterranean diet - Recommend regular aerobic exercise 4. Other hyperlipidemia - ICD9: 272.4, ICD10: E78.49 His lipids are normal 5. Stage 3a chronic kidney disease (HCC) - ICD9: 585.3, ICD10: N18.31 - eGFR: 61 Stable - Counseled on avoiding NSAIDs, adequate hydration Zaida Gaston MD documented [facility] Telephone encounter Note * Telephone Encounter - Amanda Hayes LISW - 06/18/2024 11:35 AM EDT SW attempted to call pt per request of WORKFORCE DEVELOPMENT SPECIALIST regarding possible copay issues for Envarsus. In reviewing pt's chart is appears that pt has [facility] Dual (Medicare & Medicaid.) SW attempted to contact pt and SW left a message. SW will await return phone call. SARA Sahu-S Transplant Concrete Paving Machine Operator [facility] Work Phone: [phone] Miscellaneous Notes* Telephone Encounter - Amanda Hayes LISW - 06/18/2024 11:35 AM EDT SW attempted to call pt per request of WORKFORCE DEVELOPMENT SPECIALIST regarding possible copay issues for Envarsus. In reviewing pt's chart is appears that pt has [facility] Dual (Medicare & Medicaid.) SW attempted to contact pt and SW left a message. SW will await return phone call. SARA Sahu-S Transplant Concrete Paving Machine Operator documented in this encounterMary [facility] Hospital10-08-2024 Telephone encounter Note * Telephone Encounter - Alana Kent APRN.ANDRE - 06/16/2024 1:30 PM EDT Pt called stating he has been out of Envarsus x 1 week and is unable to afford co-pay. Will try switching to tacrolimus temporarily and discuss with administrator social welfare if pt is eligible for patient assistance. Pt currently on 2.25 mg Envarsus will start tac 2/ Alana Kent APRN.WORKFORCE DEVELOPMENT SPECIALIST' [facility]10-08-2024 Miscellaneous Notes* Telephone Encounter - Alana Kent APRN.ANDRE - 06/16/2024 1:30 PM EDT Pt called stating he has been out of Envarsus x 1 week and is unable to afford co-pay. Will try switching to tacrolimus temporarily and discuss with administrator social welfare if pt is eligible for patient assistance. Pt currently on 2.25 mg Envarsus will start tac 2 Alana Kent APRN.WORKFORCE DEVELOPMENT SPECIALIST' documented in this encounterMary [facility]10-08-2024 Telephone encounter Note * Telephone Encounter - Ramya Hernandez - 06/16/2024 12:31 PM EDT Patient called regarding his Envarsus, He has been out for a week. His insurance is telling him it is a tier 4 medication and it is $100 of which he cannot afford. . Requesting a return call from the mental health coordinator. Please call Italo at [phone]. [facility] Work Phone: 1(251) 951-636910-08-2024 Miscellaneous Notes* Telephone Encounter - Ramya Hernandez - 06/16/2024 12:31 PM EDT Patient called regarding his Envarsus, He has been out for a week. His insurance is telling him it is a tier 4 medication and it is $100 of which he cannot afford. . Requesting a return call from the mental health coordinator. Please call Italo at [phone]. documented in this encounterMary [facility]09-25-2024 History of Present illness Narrative* Verna Jensen RPh - 06/03/2024 12:02 PM EDT Primary Care Pharmacy Panel Management This patient has been identified through Specialty Integration/Value-Based Operations Diabetes ListReview by the primary care pharmacy team. Patient with Type 1 DM, will not place PharmD referral at this time. Verna Jensen RPh documented in this encounterMary [facility] Hospital09-25-2024 NoteHNO ID: [id number] Author: VERNA JENSEN RPh Service: ? Author Type: Pharmacist Type: Progress Notes Filed: 06/03/2024 12:02 Note Text: Primary Care Pharmacy Panel Management This patient has been identified through Specialty Integration/Value-Based Operations Diabetes List Review by the primary care pharmacy team. Patient with Type 1 DM, will not place PharmD referral at this time. [facility] NotePatient Outreach (PHMEWO) ITALO BURGOS ([id number]) 1970 M Date Time Provider Department 06/03/24 VERNA JENSEN ESHALALI During your visit today, we recorded the following information about you: Verna Jensen [facility] 06/03/2024 12:02 PM Signed Primary Care Pharmacy Panel Management This patient has been identified through Specialty Integration/Value-Based Operations Diabetes List Review by the primary care pharmacy team. Patient with Type 1 DM, will not place PharmD referral at this time. Verna Jensen [facility] Allergies As of Date: 06/03/2024 (No Known Allergies) Date Reviewed: 04/01/2024 Reviewed by: Nga Ford, ANDER - Fully Assessed Prescriptions as of 06/03/2024 - Blood-Glucose Meter,Continuous (DEXCOM G6 OFFICER CAPTAIN) misc 1 Each continuous. - Blood-Glucose Sensor (DEXCOM G6 SENSOR) glenn 1 Each continuous. - Blood-Glucose Transmitter (DEXCOM G6 TRANSMITTER) glenn 1 Each continuous. - Cholestyramine, Bulk, powd Take one(1) scoop dissolved in two(2) to six(6) ounces(oz) of fluid by mouth daily. - carvedilol (COREG) 25 mg tablet Take 1 tablet by mouth two times a day. - FLUoxetine (PROZAC) 10 mg capsule Take 1 capsule by mouth once daily. - losartan (COZAAR) 25 mg tablet Take 2 tablets by mouth once daily. - mycophenolate sodium DR (MYFORTIC) 180 mg EC tablet Take 2 tablets by mouth two times a day. - gabapentin (NEURONTIN) 100 mg capsule Take 1 capsule by mouth daily at bedtime for 180 days. - tacrolimus ER (ENVARSUS XR) 0.75 mg tablet Take 3 tablets by mouth once daily. - loperamide (IMODIUM) 2 mg cap(s) Take 1 capsule by mouth four times a day as needed. - Insulin Syringe-Needle U-100 1 mL 29 gauge x 1/2 1 Each as needed. For Intercavernal Injections - zyschwosix-xjjsozytzhry-tkrtjbhuurz 30 MG - 1 MG - 10 MCG/ML injection (CPD) Inject 30 units into the intracavernosal region of the penis - buPROPion (WELLBUTRIN) 75 mg tablet Take 1 tablet by mouth once daily. - buPROPion XL (WELLBUTRIN XL) 300 mg 24 hr tablet Take 1 tablet by mouth once daily. - pantoprazole DR (PROTONIX) 20 mg tablet Take 1 tablet by mouth once daily. - sulfamethoxazole-trimethoprim (BACTRIM) 400-80 mg per tablet Take 1 tablet by mouth every Saturday, Saturday, and Saturday. - pseudoephedrine (SUDAFED) 30 mg tablet Take Four 4 (30 mg) Tablets for an erection lasting more than 2 hours. If not improved in 1 hour MUST go to ER - ergocalciferol 50,000 unit capsule (VITAMIN D2, DRISDOL) Take 1 capsule by mouth one time a week. - predniSONE (DELTASONE) 5 mg tablet Take 1 tablet by mouth once daily. - dulaglutide (TRULICITY) 0.75 mg/0.5 mL pen injector Inject 0.75 mg subcutaneously one time a week. - insulin 50/50 lispro protamine-lispro units/mL (HUMALOG MIX 50-50 KWIKPEN) 100 unit/mL (50-50) pen Inject 30 Units subcutaneously daily at bedtime. - insulin lispro (HUMALOG KWIKPEN INSULIN) 100 unit/mL Inject 20 units plus sliding scale with breakfast, 16 units plus SS with lunch, and 20 units + SS with dinner as directed. For snacks, inject 8 units plus sliding scale (Sliding scale: 2 units for every 40 >180 mg/dL) - Insulin [place], Disposable, (BD ULTRA-FINE SANDRA PEN NEEDLE) 32 gauge x 5/32 Use as directed four times daily - MEDICAL SUPPLY D/C oxygen - Lancets lancets Test Blood Sugar 3 x/day. Dx E11.8 Insulin Dependent, One Touch Verio brand preferred - Blood-Glucose Meter monitoring kit Glucose Meter of Choice, One Touch Verio preferred - Kit - Dx E11.8 Insulin Dependent, Test blood sugar three times a day - blood sugar diagnostic (BLOOD GLUCOSE TEST) test strip One Touch Verio preferred - Kit - Dx E11.8 Insulin Dependent, Test blood sugar three times a day - blood sugar diagnostic (BLOOD GLUCOSE TEST) test strip TEST BLOOD SUGAR 3 TIMES PER DAY. DX: 250.E11.9. INSULIN DEP: yes - glucagon 3 mg/actuation nasal spray (BAQSIMI) Use 1 [place] in the nose as needed for low blood sugar. May repeat after 15 minutes using a new device if there is no response. - aspirin 81 mg chewable tablet chew and swallow 1 tablet by mouth once daily. - fluticasone (FLONASE) 50 mcg/actuation nasal spray Use 2 Sprays in each nostril once daily. - CPAP Initiate Auto PAP @ 5-20 cm of water with humidification. Mask (per patient preference) optional chin strap (if indicated) , filters, tubing, humidifier and lifetime supplies. - >Compression Knee Highs 30-40 mm KNEE HIGH COMPRESSION STOCKINGS, 30-40 MM, I DX: EDEMA - ACETAMINOPHEN ORAL Take by mouth. 1000 mg bid for pain / aches Problem List As Of Date 06/03/2024 Noted Resolved Uncontrolled type 2 diabetes mellitus with comp*04/17/2006 Hypertension goal BP (blood pressure) < 140/90 *04/17/2006 Other hyperlipidemia [E78.49] 04/17/2006 Depressive disorder, not elsewhere classified [*04/17/2006 04/02/2019 ED (erectile dysfunction) [N52.9] 09/30/2014 (more content not included)... [facility]09-09-2024 Telephone encounter Note* Telephone Encounter - 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 APRN.CNP - 05/18/2024 3:13 PM EDT Prescriptions printed and signed. Please send to [place] as requested Thank you 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 APRN.CNP [facility]09-09-2024 Miscellaneous Notes* Telephone Encounter - 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 APRN.CNP - 05/18/2024 3:13 PM EDT Prescriptions printed and signed. Please send to [place] as requested Thank you 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 APRN.CNP * Telephone Encounter - Josseline Murphy RN - 05/18/2024 1:32 PM EDT Patient calls and states that he uses Dexacom 6 and He needs custom home installer and sensor. Patient gets supplies for [employer]. Patient had received previous Dexacom G6 order from Pharmacy. Patient has seen [facility] [place] for diabetes. Josseline Murphy RN * Telephone Encounter - Monik Chinchilla MA - 05/18/2024 1:07 PM EDT Left message for return call. * Telephone Encounter - 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 APRN.CNP - 05/18/2024 12:28 PM EDT No forms received. Can I print prescription for this and just fax? Also, I do not see previous order for this. Which dexcom has he been using and does he need sensors as well? Thank you 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 APRN.ANDRE * Telephone Encounter - Kirti Rehman RN - 05/18/2024 11:35 AM EDT Patient requesting a new Dexcom meter. Reports lost his other one. Patient does have fingerstick glucometer currently, that he is using. Reports he contacted [employer] of his request for a new Dexcom and they were supposed to fax forms to PCP to complete and send back. Please call patient with any updates regarding this. Thank you. * Telephone Encounter - Xiang Wilson MA - 05/18/2024 10:24 AM EDT LM for patient to contact office to clarify what he is asking for. Below states he is asking for DME company for Dexcom, but then says [employer] will be faxing orders. [employer] is a DME company for Dexcom. iXang Wilson MA * Telephone Encounter - Xi Moreno - 05/14/2024 10:11 AM EDT Italo is calling Zaida Gaston MD today to request the name of the[employer]elli supply company for theDexcom G6 , patient will call them to have them fax the need for supplies, Please watch fax for this request from [employer] Patient has been identified by name and birthdate. Duration of symptoms: N/A Person calling: self Call patient at: on cell [phone] (home) [phone] (cell) Was an appointment scheduled: No Closing statement: Results or non-symptom based questions: Thank you for calling [facility], your call will be returned within the next business day. Xi Gunter documented in this encounterMary [facility]09-09-2024 Telephone encounter Note * Telephone Encounter - Josseline Murphy RN - 05/18/2024 1:32 PM EDT Patient calls and states that he uses Dexacom 6 and He needs custom home installer and sensor. Patient gets supplies for [employer]. Patient had received previous Dexacom G6 order from Pharmacy. Patient has seen [facility] for diabetes. Josseline Murphy RN [facility]09-09-2024 Telephone encounter Note* Telephone Encounter - Monik Chinchilla MA - 05/18/2024 1:07 PM EDT Left message for return call. [facility]-09-[facility] Telephone encounter Note* Telephone Encounter - 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 APRN.ANDRE - 05/18/2024 12:28 PM EDT No forms received. Can I print prescription for this and just fax? Also, I do not see previous order for this. Which dexcom has he been using and does he need sensors as well? Thank you 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 APRN.ANDRE [facility]09-09-[facility] Telephone encounter Note* Telephone Encounter - Kirti Rehman RN - 05/18/2024 11:35 AM EDT Patient requesting a new Dexcom meter. Reports lost his other one. Patient does have fingerstick glucometer currently, that he is using. Reports he contacted [employer] of his request for a new Dexcom and they were supposed to fax forms to PCP to complete and send back. Please call patient with any updates regarding this. Thank you. [facility]09-09-[facility] Telephone encounter Note* Telephone Encounter - Xiang Wilson MA - 05/18/2024 10:24 AM EDT LM for patient to contact office to clarify what he is asking for. Below states he is asking for DME company for Dexcom, but then says [employer] will be faxing orders. [employer] is a DME company for Dexcom. Xiang Wilson MA [facility]09-05-2024 Telephone encounter Note* Telephone Encounter - Xi Moreno - 05/14/2024 10:11 AM EDT Italo is calling Zaida Gaston MD today to request the name of the diabetic supply company for the[employer] , patient will call them to have them fax the need for supplies, Please watch fax for this request from [employer] Patient has been identified by name and birthdate. Duration of symptoms: N/A Person calling: self Call patient at: on cell [phone] (home) [phone] (cell) Was an appointment scheduled: No Closing statement: Results or non-symptom based questions: Thank you for calling [facility], your call will be returned within the next business day. Xi Gunter [facility]07-24-2024 Attending History and physical note* Lali Raman MD - 04/01/2024 12:30 PM EDT UPDATED HISTORY AND PHYSICAL EXAMINATION SERVICE DATE: 04/01/2024 SERVICE TIME: 11:33 PHYSICAL EXAM MUST BE COMPLETED ON ADMISSION The History and Physical (completed in the past 30 days) has been reviewed and the patient has beenexamined. The contents accurately reflect the patient's condition with the following additions or revisions since the H&P was completed. Examination indicates no changes. This H&P can be found in the Electronic Medical Record . SIGNATURE: Lali Raman MD PATIENT NAME: Italo Burgos DATE: April 01, 2024 TIME: 11:33 AM Source Note - Lali Raman MD - 04/01/2024 12:30 PM EDT HISTORY AND PHYSICAL Italo Burgos : 1970 REFERRING PHYSICIAN: 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 [address] [facility] [address] CHIEF COMPLAINT: Patient presents with: Consult: Colonoscopy consultation. HPI: Italo is a 53 year old male referred for endoscopy. Italo notes diarrhea after every meal x 3 years. Refers every time he eats he has instant diarrhea. Denies blood, or abd pain. Patient denies weight changes, blood in stools, black tarry stools or abdominal pain. Refers family history of colon issues.-father with colon cancer Italo notes no upper GI complaints. Takes Protonix Italo has a history of kidney transplant 03/2021. He follows with the transplant center last appointment 01/2024- no concerns, due to follow up at routine 6 mo visit. Italo has type 2 diabetes he follows with [facility], last appointment was 12/2023. Diabetes is uncontrolled most recent hemoglobin A1c was 10.2. Italo followed up with endocrinology today his hemoglobin A1c was 10.1. Dr. Durand increased his Trulicity but he is unsure to what dose. Italo has undergone prior endoscopy. Last EGD & colonoscopy in 11/[address] Raman at [facility] EGD Impression: - Normal esophagus. - Normal examined duodenum. - Biopsies were taken with a cold forceps for Helicobacter pylori testing. Colonoscopy: Impression: - Non-bleeding internal hemorrhoids. - No specimens collected. Pathology: CONVERTED FINAL DIAGNOSIS Stomach, antrum, biopsy - Reactive gastropathy. - No intestinal metaplasia or morphologic evidence of Helicobacter pylori organisms. ES/ka 12/08/2018 CURRENT MEDICATIONS Current Outpatient Medications Medication Sig carvedilol (COREG) 25 mg tablet Take 1 tablet by mouth two times a day. FLUoxetine (PROZAC) 10 mg capsule Take 1 capsule by mouth once daily. losartan (COZAAR) 25 mg tablet Take 2 tablets by mouth once daily. mycophenolate sodium DR (MYFORTIC) 180 mg EC tablet Take 2 tablets by mouth two times a day. gabapentin (NEURONTIN) 100 mg capsule Take 1 capsule by mouth daily at bedtime for 180 days. tacrolimus ER (ENVARSUS XR) 0.75 mg tablet Take 3 tablets by mouth once daily. loperamide (IMODIUM) 2 mg cap(s) Take 1 capsule by mouth four times a day as needed. Insulin Syringe-Needle U-100 1 mL 29 gauge x 1/2 1 Each as needed. For Intercavernal Injections uigltdklyq-fdraavpjpaqx-drvvqoivluy 30 MG - 1 MG - 10 MCG/ML injection (CPD) Inject 30 units into the intracavernosal region of the penis buPROPion (WELLBUTRIN) 75 mg tablet Take 1 tablet by mouth once daily. buPROPion XL (WELLBUTRIN XL) 300 mg 24 hr tablet Take 1 tablet by mouth once daily. pantoprazole DR (PROTONIX) 20 mg tablet Take 1 tablet by mouth once daily. sulfamethoxazole-trimethoprim (BACTRIM) 400-80 mg per tablet Take 1 tablet by mouth every Saturday, Saturday, and Saturday. pseudoephedrine (SUDAFED) 30 mg tablet Take Four 4 (30 mg) Tablets for an erection lasting more than 2 hours. If not improved in 1 hour MUST go to ER ergocalciferol 50,000 unit capsule (VITAMIN D2, DRISDOL) Take 1 capsule by mouth one time a week. predniSONE (DELTASONE) 5 mg tablet Take 1 tablet by mouth once daily. dulaglutide (TRULICITY) 0.75 mg/0.5 mL pen injector Inject 0.75 mg subcutaneously one time a week. insulin 50/50 lispro protamine-lispro units/mL (HUMALOG MIX 50-50 KWIKPEN) 100 unit/mL (50-50) pen Inject 30 Units subcutaneously daily at bedtime. insulin lispro (HUMALOG KWIKPEN INSULIN) 100 unit/mL Inject 20 units plus sliding scale with breakfast, 16 units plus SS with lunch, and 20 units + SS with dinner as directed. For snacks, inject 8 units plus sliding scale (Sliding scale: 2 units for every 40 >180 mg/dL) Insulin [place], Disposable, (BD ULTRA-FINE SANDRA PEN NEEDLE) 32 gauge x /32 Use as directed four times daily MEDICAL SUPPLY D/C oxygen Lancets lancets Test Blood Sugar 3 x/day. 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 DX: 250.E11.9. INSULIN DEP: yes glucagon 3 mg/actuation nasal spray (BAQSIMI) Use 1 [place] in the nose as needed for low blood sugar. May repeat after 15 minutes using a new device if there is no response. aspirin 81 mg chewable tablet chew and swallow 1 tablet by mouth once daily. fluticasone (FLONASE) 50 mcg/actuation nasal spray Use 2 Sprays in each nostril once daily. CPAP Initiate Auto PAP @ 5-20 cm of water with humidification. Mask (per patient preference) optional chin strap (if indicated) , filters, tubing, humidifier and lifetime supplies. >Compression Knee Highs 30-40 mm KNEE HIGH COMPRESSION STOCKINGS, 30-40 MM, I DX: EDEMA ACETAMINOPHEN ORAL Take by mouth. 1000 mg bid for pain / aches No current facility-administered medications for this visit. ALLERGIES: Patient has no known allergies. PAST MEDICAL HISTORY PAST MEDICAL HISTORY Diagnosis Date Acute diastolic (congestive) heart failure ([facility]) Bronchitis Chronic kidney failure, stage 4 (severe) ([facility]) 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 ([facility]) 12/16/2018 Depression Detached retina DM type 2, goal HbA1c < 7% ([facility]) Erectile dysfunction, unspecified erectile dysfunction type ESRD (end stage renal disease) ([facility]) GERD (gastroesophageal reflux disease) Hyperlipidemia Kidney replaced by transplant Kidney stones LUANNE (obstructive sleep apnea) PNA (pneumonia) Proliferative retinopathy 02/10/2019 PTE (post-transplant erythrocytosis) Snoring Unspecified essential hypertension Vitamin D deficiency Vitamin D deficiency PAST SURGICAL HISTORY PAST SURGICAL HISTORY Procedure Laterality Date AMPUTATION TOE,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 08/08/2018 Done at [facility] by Satish Phan MD CHOLECYSTECTOMY 1998 Cholecystectomy COLONOSCOPY 12/04/2018 CYSTO W/COMPLEX REMOVAL STONE & STENT 1999 EGD 12/04/2018 PAST SURGICAL HISTORY OF Left 2012 & 2014 removal eye fluid with instillation oil FAMILY HISTORY FAMILY HISTORY Problem Relation Age of Onset Colon Cancer Father 53 Diabetes Brother 52 Diabetes Sister Diabetes Mother 78 Heart Attack Mother Cancer Brother 49 lung Diabetes Son SOCIAL HISTORY Social History Tobacco Use Smoking status: Never Smokeless tobacco: Former Types: Snuff Tobacco comments: snuff x 33 years Quit in 2020 Vaping Use Vaping Use: Never used Substance Use Topics Alcohol use: Not Currently Drug use: Not Currently Types: Marijuana REVIEW OF SYMPTOMS: The review of systems data was entered by the nurse and reviewed by ct Nursing Notes: Winifred Yeung RN 03/24/2024 4:12 PM Signed REVIEW OF SYSTEMS: General: The patient denies fatigue, denies weight loss, denies weight gain, denies feeling hot, and denies feelings of cold. Eyes: The patient denies glaucoma, denies eye injury/surgery, wears glasses or contacts. Ear/Nose/Throat: The patient denies allergies, denies hayfever, denies ear infections, and denies bloody noses. Cardiovascular: The patient denies chest pain, denies heart disease, NOTES high blood pressure,denies cardiac stent, denies prior heart attack, denies irregular heart beat, NOTES high cholesterol, denies poor circulation, NOTES heart failure, other cardiac issues, NOTES claudication, NOTES cold feet, denies peripheral arterial stent. Respiratory: The patient denies tuberculosis, denies pneumonia, denies frequent cough, denies pulmonary embolism, denies shortness of breath, and denies coughing up blood. Gastrointestinal: The patient denies difficulty swallowing, NOTES acid reflux, denies ulcers, denies vomiting, denies jaundice/hepatitis, denies gallbladder problems, denies black or tarry stools, denies hemorrhoids, denies bleeding from rectum, denies diverticulitis, denies constipation, NOTES diarrhea, denies loss of stool control, and denies hernias. Kidney/Bladder: The patient NOTES kidney stones, denies urine infections, denies bloody urine and NOTES kidney failure with kidney transplant. Skin: The patient denies a history of skin cancer, denies bleeding/changing moles, and denies a history of skin rash. Neurologic: The patient denies a history of epilepsy/convulsions, denies headaches, denies head/spinal injuries, and denies stroke/TIA. Psychiatric: The patient NOTES psychiatric medications, NOTES depression, and denies voices, deniessubstance abuse. Endocrine: The patient denies thyroid disorders, NOTES diabetes, and denies hormonal problems. Hematologic: The patient denies a history of bruising, denies bleeding, and denies anemia, denies blood clots. Infections: The patient denies a history of measles and mumps, denies rheumatic fever, and denies sexually transmitted diseases. Musculoskeletal: The patient denies back pain/injury, denies back problems, denies sciatica, deniesknee/foot trouble, denies arthritis, or denies gout. When was patient's last Mammogram screening? N/A Last Colonoscopy: 12/04/2018 Winifred Yeung RN PHYSICAL EXAMINATION: General: The patient is 53 year old, male well nourished, well hydrated in no acute distress. The patient is oriented to time, place, and person. VITALS: Blood pressure 118/60, pulse 105, temperature 36.6 C (97.9 F), height 172.7 cm (5' 8), weight 89.4 kg (197 lb), SpO2 95%. Body mass index is 29.95 kg/m . HEENT: Normal cephalic, ataumatic, pupils are equally round, sclera are anicteric, mucous membranesare moist, oropharynx is clear. Neck has no masses, asymmetry or lymphadenopathy. Respiratory: Clear to auscultation and percussion. Normal respiratory excursion and pattern. Cardiac: Examination is regular rate and rhythm. Normal S1/S2 Abdominal exam: Soft, nontender, with no palpable masses. No hepatosplenomegaly. No palpable hernias. Extremities: no clubbing, cyanosis or edema. No adenopathy. LABORATORY VALUES: As Noted RADIOLOGIC STUDIES: As Noted Assessment IMPRESSION: diarrhea, first degree relative with colon cancer, GERD PLAN: I have reviewed my findings with the surgeon. Will plan for upper and lower endoscopy. We discussed the risks and benefits of the planned endoscopy. I have informed the patient that complications can occur including failure to complete the endoscopy and perforation. Italo had the opportunity to ask questions concerning the planned endoscopy. My staff has also explained the procedure to the patient in understandable terms and has given the patient printed material concerning the procedure.Italo freely consents to surgery. I plan to use GoLytely bowel preparation Instructed patient to hold Trulicity for 1 week (1 injection) prior to endoscopy I have explained to the patient the difference between IV conscious sedation and MAC anesthesia - and I have offered either, according to the patient's wishes. I have explained that with IV conscioussedation there is no anesthesia provider available and therefore there is a limitation of the amount of IV medications that can be given and that the patient may wake up in the middle of the procedure and/or experience pain/discomfort during the procedure. Further discussion was done and the patient was given the opportunity to ask questions and all questions were answered. MAC anesthesia- d/t uncontrolled diabetes Italo was counseled that if there are changes in his/her medical condition, to let the office know if surgery should proceed. If there are changes in patient's medical condition from time of this encounter to the day of the procedure that preclude anesthesia, patient may have procedure cancelled for patient's safety. Diagnoses: (R19.7) Diarrhea, unspecified type (primary encounter diagnosis) (K21.9) Gastroesophageal reflux disease without esophagitis (Z80.0) FH: colon cancer in first degree relative <60 years old Portions of this documentation were copied and pasted from previous office visit notes in order to provide a cohesive continuity of the history. The note has been reviewed and edited and updated as necessary. Nia James, PATRICIA.WORKFORCE DEVELOPMENT SPECIALIST [facility]07-24-2024 History and physical note* Lali Raman MD - 04/01/2024 12:30 PM EDT HISTORY AND PHYSICAL Italo Burgos : 1970 REFERRING PHYSICIAN: 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 [address] [facility] [address] CHIEF COMPLAINT: Patient presents with: Consult: Colonoscopy consultation. HPI: Italo is a 53 year old male referred for endoscopy. Italo notes diarrhea after every meal x 3 years. Refers every time he eats he has instant diarrhea. Denies blood, or abd pain. Patient denies weight changes, blood in stools, black tarry stools or abdominal pain. Refers family history of colon issues.-father with colon cancer Italo notes no upper GI complaints. Takes Protonix Italo has a history of kidney transplant 03/2021. He follows with the transplant center last appointment 01/2024- no concerns, due to follow up at routine 6 mo visit. Italo has type 2 diabetes he follows with [facility], last appointment was 12/2023. Diabetes is uncontrolled most recent hemoglobin A1c was 10.2. Italo followed up with endocrinology today his hemoglobin A1c was 10.1. Dr. Durand increased his Trulicity but he is unsure to what dose. Italo has undergone prior endoscopy. Last EGD & colonoscopy in 11/[address] Raman at [facility] EGD Impression: - Normal esophagus. - Normal examined duodenum. - Biopsies were taken with a cold forceps for Helicobacter pylori testing. Colonoscopy: Impression: - Non-bleeding internal hemorrhoids. - No specimens collected. Pathology: CONVERTED FINAL DIAGNOSIS Stomach, antrum, biopsy - Reactive gastropathy. - No intestinal metaplasia or morphologic evidence of Helicobacter pylori organisms. ES/dagoberto 12/08/2018 CURRENT MEDICATIONS Current Outpatient Medications Medication Sig carvedilol (COREG) 25 mg tablet Take 1 tablet by mouth two times a day. FLUoxetine (PROZAC) 10 mg capsule Take 1 capsule by mouth once daily. losartan (COZAAR) 25 mg tablet Take 2 tablets by mouth once daily. mycophenolate sodium DR (MYFORTIC) 180 mg EC tablet Take 2 tablets by mouth two times a day. gabapentin (NEURONTIN) 100 mg capsule Take 1 capsule by mouth daily at bedtime for 180 days. tacrolimus ER (ENVARSUS XR) 0.75 mg tablet Take 3 tablets by mouth once daily. loperamide (IMODIUM) 2 mg cap(s) Take 1 capsule by mouth four times a day as needed. Insulin Syringe-Needle U-100 1 mL 29 gauge x 1/2 1 Each as needed. For Intercavernal Injections gzhxjerswn-ocgdthygssto-grogmzawnfk 30 MG - 1 MG - 10 MCG/ML injection (CPD) Inject 30 units into the intracavernosal region of the penis buPROPion (WELLBUTRIN) 75 mg tablet Take 1 tablet by mouth once daily. buPROPion XL (WELLBUTRIN XL) 300 mg 24 hr tablet Take 1 tablet by mouth once daily. pantoprazole DR (PROTONIX) 20 mg tablet Take 1 tablet by mouth once daily. sulfamethoxazole-trimethoprim (BACTRIM) 400-80 mg per tablet Take 1 tablet by mouth every Saturday, Saturday, and Saturday. pseudoephedrine (SUDAFED) 30 mg tablet Take Four 4 (30 mg) Tablets for an erection lasting more than 2 hours. If not improved in 1 hour MUST go to ER ergocalciferol 50,000 unit capsule (VITAMIN D2, DRISDOL) Take 1 capsule by mouth one time a week. predniSONE (DELTASONE) 5 mg tablet Take 1 tablet by mouth once daily. dulaglutide (TRULICITY) 0.75 mg/0.5 mL pen injector Inject 0.75 mg subcutaneously one time a week. insulin 50/50 lispro protamine-lispro units/mL (HUMALOG MIX 50-50 KWIKPEN) 100 unit/mL (50-50) pen Inject 30 Units subcutaneously daily at bedtime. insulin lispro (HUMALOG KWIKPEN INSULIN) 100 unit/mL Inject 20 units plus sliding scale with breakfast, 16 units plus SS with lunch, and 20 units + SS with dinner as directed. For snacks, inject 8 units plus sliding scale (Sliding scale: 2 units for every 40 >180 mg/dL) Insulin [place], Disposable, (BD ULTRA-FINE SANDRA PEN NEEDLE) 32 gauge x 5/32 Use as directed four times daily MEDICAL SUPPLY D/C oxygen Lancets lancets Test Blood Sugar 3 x/day. 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 DX: 250.E11.9. INSULIN DEP: yes glucagon 3 mg/actuation nasal spray (BAQSIMI) Use 1 [place] in the nose as needed for low blood sugar. May repeat after 15 minutes using a new device if there is no response. aspirin 81 mg chewable tablet chew and swallow 1 tablet by mouth once daily. fluticasone (FLONASE) 50 mcg/actuation nasal spray Use 2 Sprays in each nostril once daily. CPAP Initiate Auto PAP @ 5-20 cm of water with humidification. Mask (per patient preference) optional chin strap (if indicated) , filters, tubing, humidifier and lifetime supplies. >Compression Knee Highs 30-40 mm KNEE HIGH COMPRESSION STOCKINGS, 30-40 MM, I DX: EDEMA ACETAMINOPHEN ORAL Take by mouth. 1000 mg bid for pain / aches No current facility-administered medications for this visit. ALLERGIES: Patient has no known allergies. PAST MEDICAL HISTORY PAST MEDICAL HISTORY Diagnosis Date Acute diastolic (congestive) heart failure ([facility]) Bronchitis Chronic kidney failure, stage 4 (severe) ([facility]) 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 ([facility]) 12/16/2018 Depression Detached retina DM type 2, goal HbA1c < 7% ([facility]) Erectile dysfunction, unspecified erectile dysfunction type ESRD (end stage renal disease) ([facility]) GERD (gastroesophageal reflux disease) Hyperlipidemia Kidney replaced by transplant Kidney stones LUANNE (obstructive sleep apnea) PNA (pneumonia) Proliferative retinopathy 02/10/2019 PTE (post-transplant erythrocytosis) Snoring Unspecified essential hypertension Vitamin D deficiency Vitamin D deficiency PAST SURGICAL HISTORY PAST SURGICAL HISTORY Procedure Laterality Date AMPUTATION TOE,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 08/08/2018 Done at [facility] by Satish Phan MD CHOLECYSTECTOMY 1998 Cholecystectomy COLONOSCOPY 12/04/2018 CYSTO W/COMPLEX REMOVAL STONE & STENT 1999 EGD 12/04/2018 PAST SURGICAL HISTORY OF Left 2012 & 2014 removal eye fluid with instillation oil FAMILY HISTORY FAMILY HISTORY Problem Relation Age of Onset Colon Cancer Father 53 Diabetes Brother 52 Diabetes Sister Diabetes Mother 78 Heart Attack Mother Cancer Brother 49 lung Diabetes Son SOCIAL HISTORY Social History Tobacco Use Smoking status: Never Smokeless tobacco: Former Types: Snuff Tobacco comments: snuff x 33 years Quit in 2020 Vaping Use Vaping Use: Never used Substance Use Topics Alcohol use: Not Currently Drug use: Not Currently Types: Marijuana REVIEW OF SYMPTOMS: The review of systems data was entered by the nurse and reviewed by ct Nursing Notes: Winifred Yeung RN 03/24/2024 4:12 PM Signed REVIEW OF SYSTEMS: General: The patient denies fatigue, denies weight loss, denies weight gain, denies feeling hot, and denies feelings of cold. Eyes: The patient denies glaucoma, denies eye injury/surgery, wears glasses or contacts. Ear/Nose/Throat: The patient denies allergies, denies hayfever, denies ear infections, and denies bloody noses. Cardiovascular: The patient denies chest pain, denies heart disease, NOTES high blood pressure,denies cardiac stent, denies prior heart attack, denies irregular heart beat, NOTES high cholesterol, denies poor circulation, NOTES heart failure, other cardiac issues, NOTES claudication, NOTES cold feet, denies peripheral arterial stent. Respiratory: The patient denies tuberculosis, denies pneumonia, denies frequent cough, denies pulmonary embolism, denies shortness of breath, and denies coughing up blood. Gastrointestinal: The patient denies difficulty swallowing, NOTES acid reflux, denies ulcers, denies vomiting, denies jaundice/hepatitis, denies gallbladder problems, denies black or tarry stools, denies hemorrhoids, denies bleeding from rectum, denies diverticulitis, denies constipation, NOTES diarrhea, denies loss of stool control, and denies hernias. Kidney/Bladder: The patient NOTES kidney stones, denies urine infections, denies bloody urine and NOTES kidney failure with kidney transplant. Skin: The patient denies a history of skin cancer, denies bleeding/changing moles, and denies a history of skin rash. Neurologic: The patient denies a history of epilepsy/convulsions, denies headaches, denies head/spinal injuries, and denies stroke/TIA. Psychiatric: The patient NOTES psychiatric medications, NOTES depression, and denies voices, deniessubstance abuse. Endocrine: The patient denies thyroid disorders, NOTES diabetes, and denies hormonal problems. Hematologic: The patient denies a history of bruising, denies bleeding, and denies anemia, denies blood clots. Infections: The patient denies a history of measles and mumps, denies rheumatic fever, and denies sexually transmitted diseases. Musculoskeletal: The patient denies back pain/injury, denies back problems, denies sciatica, deniesknee/foot trouble, denies arthritis, or denies gout. When was patient's last Mammogram screening? N/A Last Colonoscopy: 12/04/2018 Winifred Yeung RN PHYSICAL EXAMINATION: General: The patient is 53 year old, male well nourished, well hydrated in no acute distress. The patient is oriented to time, place, and person. VITALS: Blood pressure 118/60, pulse 105, temperature 36.6 C (97.9 F), height 172.7 cm (5' 8), weight 89.4 kg (197 lb), SpO2 95%. Body mass index is 29.95 kg/m . HEENT: Normal cephalic, ataumatic, pupils are equally round, sclera are anicteric, mucous membranesare moist, oropharynx is clear. Neck has no masses, asymmetry or lymphadenopathy. Respiratory: Clear to auscultation and percussion. Normal respiratory excursion and pattern. Cardiac: Examination is regular rate and rhythm. Normal S1/S2 Abdominal exam: Soft, nontender, with no palpable masses. No hepatosplenomegaly. No palpable hernias. Extremities: no clubbing, cyanosis or edema. No adenopathy. LABORATORY VALUES: As Noted RADIOLOGIC STUDIES: As Noted Assessment IMPRESSION: diarrhea, first degree relative with colon cancer, GERD PLAN: I have reviewed my findings with the surgeon. Will plan for upper and lower endoscopy. We discussed the risks and benefits of the planned endoscopy. I have informed the patient that complications can occur including failure to complete the endoscopy and perforation. Italo had the opportunity to ask questions concerning the planned endoscopy. My staff has also explained the procedure to the patient in understandable terms and has given the patient printed material concerning the procedure.Italo freely consents to surgery. I plan to use GoLytely bowel preparation Instructed patient to hold Trulicity for 1 week (1 injection) prior to endoscopy I have explained to the patient the difference between IV conscious sedation and MAC anesthesia - and I have offered either, according to the patient's wishes. I have explained that with IV conscioussedation there is no anesthesia provider available and therefore there is a limitation of the amount of IV medications that can be given and that the patient may wake up in the middle of the procedure and/or experience pain/discomfort during the procedure. Further discussion was done and the patient was given the opportunity to ask questions and all questions were answered. MAC anesthesia- d/t uncontrolled diabetes Italo was counseled that if there are changes in his/her medical condition, to let the office know if surgery should proceed. If there are changes in patient's medical condition from time of this encounter to the day of the procedure that preclude anesthesia, patient may have procedure cancelled for patient's safety. Diagnoses: (R19.7) Diarrhea, unspecified type (primary encounter diagnosis) (K21.9) Gastroesophageal reflux disease without esophagitis (Z80.0) FH: colon cancer in first degree relative <60 years old Portions of this documentation were copied and pasted from previous office visit notes in order to provide a cohesive continuity of the history. The note has been reviewed and edited and updated as necessary. Nia James APRN.WORKFORCE DEVELOPMENT SPECIALIST [facility]07-24-2024 History and physical note* Lali Raman MD - 04/01/2024 12:30 PM EDT UPDATED HISTORY AND PHYSICAL EXAMINATION SERVICE DATE: 04/01/2024 SERVICE TIME: 11:33 PHYSICAL EXAM MUST BE COMPLETED ON ADMISSION The History and Physical (completed in the past 30 days) has been reviewed and the patient has beenexamined. The contents accurately reflect the patient's condition with the following additions or revisions since the H&P was completed. Examination indicates no changes. This H&P can be found in the Electronic Medical Record . SIGNATURE: Lali Raman MD PATIENT NAME: Italo Burgos DATE: April 01, 2024 TIME: 11:33 AM Source Note - Lali Raman MD - 04/01/2024 12:30 PM EDT HISTORY AND PHYSICAL Italo Burgos : 1970 REFERRING PHYSICIAN: 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 [address] [facility] [id number] CHIEF COMPLAINT: Patient presents with: Consult: Colonoscopy consultation. HPI: Italo is a 53 year old male referred for endoscopy. Italo notes diarrhea after every meal x 3 years. Refers every time he eats he has instant diarrhea. Denies blood, or abd pain. Patient denies weight changes, blood in stools, black tarry stools or abdominal pain. Refers family history of colon issues.-father with colon cancer Italo notes no upper GI complaints. Takes Protonix Italo has a history of kidney transplant 03/2021. He follows with the transplant center last appointment 01/2024- no concerns, due to follow up at routine 6 mo visit. Italo has type 2 diabetes he follows with [facility], last appointment was 12/2023. Diabetes is uncontrolled most recent hemoglobin A1c was 10.2. Italo followed up with endocrinology today his hemoglobin A1c was 10.1. Dr. Durand increased his Trulicity but he is unsure to what dose. Italo has undergone prior endoscopy. Last EGD & colonoscopy in 11/[address] Raman at [facility] EGD Impression: - Normal esophagus. - Normal examined duodenum. - Biopsies were taken with a cold forceps for Helicobacter pylori testing. Colonoscopy: Impression: - Non-bleeding internal hemorrhoids. - No specimens collected. Pathology: CONVERTED FINAL DIAGNOSIS Stomach, antrum, biopsy - Reactive gastropathy. - No intestinal metaplasia or morphologic evidence of Helicobacter pylori organisms. BERTA/dagoberto 12/08/2018 CURRENT MEDICATIONS Current Outpatient Medications Medication Sig carvedilol (COREG) 25 mg tablet Take 1 tablet by mouth two times a day. FLUoxetine (PROZAC) 10 mg capsule Take 1 capsule by mouth once daily. losartan (COZAAR) 25 mg tablet Take 2 tablets by mouth once daily. mycophenolate sodium DR (MYFORTIC) 180 mg EC tablet Take 2 tablets by mouth two times a day. gabapentin (NEURONTIN) 100 mg capsule Take 1 capsule by mouth daily at bedtime for 180 days. tacrolimus ER (ENVARSUS XR) 0.75 mg tablet Take 3 tablets by mouth once daily. loperamide (IMODIUM) 2 mg cap(s) Take 1 capsule by mouth four times a day as needed. Insulin Syringe-Needle U-100 1 mL 29 gauge x 1/2 1 Each as needed. For Intercavernal Injections [id number]-qyanprnwsbdr-[id number] 30 MG - 1 MG - 10 MCG/ML injection (CPD) Inject 30 units into the intracavernosal region of the penis buPROPion (WELLBUTRIN) 75 mg tablet Take 1 tablet by mouth once daily. buPROPion XL (WELLBUTRIN XL) 300 mg 24 hr tablet Take 1 tablet by mouth once daily. pantoprazole DR (PROTONIX) 20 mg tablet Take 1 tablet by mouth once daily. sulfamethoxazole-trimethoprim (BACTRIM) 400-80 mg per tablet Take 1 tablet by mouth every Saturday, Saturday, and Saturday. pseudoephedrine (SUDAFED) 30 mg tablet Take Four 4 (30 mg) Tablets for an erection lasting more than 2 hours. If not improved in 1 hour MUST go to ER ergocalciferol 50,000 unit capsule (VITAMIN D2, DRISDOL) Take 1 capsule by mouth one time a week. predniSONE (DELTASONE) 5 mg tablet Take 1 tablet by mouth once daily. dulaglutide (TRULICITY) 0.75 mg/0.5 mL pen injector Inject 0.75 mg subcutaneously one time a week. insulin 50/50 lispro protamine-lispro units/mL (HUMALOG MIX 50-50 KWIKPEN) 100 unit/mL (50-50) pen Inject 30 Units subcutaneously daily at bedtime. insulin lispro (HUMALOG KWIKPEN INSULIN) 100 unit/mL Inject 20 units plus sliding scale with breakfast, 16 units plus SS with lunch, and 20 units + SS with dinner as directed. For snacks, inject 8 units plus sliding scale (Sliding scale: 2 units for every 40 >180 mg/dL) Insulin [place], Disposable, (BD ULTRA-FINE SANDRA PEN NEEDLE) 32 gauge x 5/32 Use as directed four times daily MEDICAL SUPPLY D/C oxygen Lancets lancets Test Blood Sugar 3 x/day. 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 DX: 250.E11.9. INSULIN DEP: yes glucagon 3 mg/actuation nasal spray (BAQSIMI) Use 1 [place] in the nose as needed for low blood sugar. May repeat after 15 minutes using a new device if there is no response. aspirin 81 mg chewable tablet chew and swallow 1 tablet by mouth once daily. fluticasone (FLONASE) 50 mcg/actuation nasal spray Use 2 Sprays in each nostril once daily. CPAP Initiate Auto PAP @ 5-20 cm of water with humidification. Mask (per patient preference) optional chin strap (if indicated) , filters, tubing, humidifier and lifetime supplies. >Compression Knee Highs 30-40 mm KNEE HIGH COMPRESSION STOCKINGS, 30-40 MM, I DX: EDEMA ACETAMINOPHEN ORAL Take by mouth. 1000 mg bid for pain / aches No current facility-administered medications for this visit. ALLERGIES: Patient has no known allergies. PAST MEDICAL HISTORY PAST MEDICAL HISTORY Diagnosis Date Acute diastolic (congestive) heart failure ([facility]) Bronchitis Chronic kidney failure, stage 4 (severe) ([facility]) 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 ([facility]) 12/16/2018 Depression Detached retina DM type 2, goal HbA1c < 7% ([facility]) Erectile dysfunction, unspecified erectile dysfunction type ESRD (end stage renal disease) ([facility]) GERD (gastroesophageal reflux disease) Hyperlipidemia Kidney replaced by transplant Kidney stones LUANNE (obstructive sleep apnea) PNA (pneumonia) Proliferative retinopathy 02/10/2019 PTE (post-transplant erythrocytosis) Snoring Unspecified essential hypertension Vitamin D deficiency Vitamin D deficiency PAST SURGICAL HISTORY PAST SURGICAL HISTORY Procedure Laterality Date AMPUTATION TOE,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 08/08/2018 Done at [facility] by Satish Phan MD CHOLECYSTECTOMY 1999 Cholecystectomy COLONOSCOPY 12/04/2018 CYSTO W/COMPLEX REMOVAL STONE & STENT 1999 EGD 12/04/2018 PAST SURGICAL HISTORY OF Left 2012 & 2014 removal eye fluid with instillation oil FAMILY HISTORY FAMILY HISTORY Problem Relation Age of Onset Colon Cancer Father 53 Diabetes Brother 52 Diabetes Sister Diabetes Mother 78 Heart Attack Mother Cancer Brother 49 lung Diabetes Son SOCIAL HISTORY Social History Tobacco Use Smoking status: Never Smokeless tobacco: Former Types: Snuff Tobacco comments: snuff x 33 years Quit in 2020 Vaping Use Vaping Use: Never used Substance Use Topics Alcohol use: Not Currently Drug use: Not Currently Types: Marijuana REVIEW OF SYMPTOMS: The review of systems data was entered by the nurse and reviewed by ct Nursing Notes: Winifred Yeung RN 03/24/2024 4:12 PM Signed REVIEW OF SYSTEMS: General: The patient denies fatigue, denies weight loss, denies weight gain, denies feeling hot, and denies feelings of cold. Eyes: The patient denies glaucoma, denies eye injury/surgery, wears glasses or contacts. Ear/Nose/Throat: The patient denies allergies, denies hayfever, denies ear infections, and denies bloody noses. Cardiovascular: The patient denies chest pain, denies heart disease, NOTES high blood pressure,denies cardiac stent, denies prior heart attack, denies irregular heart beat, NOTES high cholesterol, denies poor circulation, NOTES heart failure, other cardiac issues, NOTES claudication, NOTES cold feet, denies peripheral arterial stent. Respiratory: The patient denies tuberculosis, denies pneumonia, denies frequent cough, denies pulmonary embolism, denies shortness of breath, and denies coughing up blood. Gastrointestinal: The patient denies difficulty swallowing, NOTES acid reflux, denies ulcers, denies vomiting, denies jaundice/hepatitis, denies gallbladder problems, denies black or tarry stools, denies hemorrhoids, denies bleeding from rectum, denies diverticulitis, denies constipation, NOTES diarrhea, denies loss of stool control, and denies hernias. Kidney/Bladder: The patient NOTES kidney stones, denies urine infections, denies bloody urine and NOTES kidney failure with kidney transplant. Skin: The patient denies a history of skin cancer, denies bleeding/changing moles, and denies a history of skin rash. Neurologic: The patient denies a history of epilepsy/convulsions, denies headaches, denies head/spinal injuries, and denies stroke/TIA. Psychiatric: The patient NOTES psychiatric medications, NOTES depression, and denies voices, deniessubstance abuse. Endocrine: The patient denies thyroid disorders, NOTES diabetes, and denies hormonal problems. Hematologic: The patient denies a history of bruising, denies bleeding, and denies anemia, denies blood clots. Infections: The patient denies a history of measles and mumps, denies rheumatic fever, and denies sexually transmitted diseases. Musculoskeletal: The patient denies back pain/injury, denies back problems, denies sciatica, deniesknee/foot trouble, denies arthritis, or denies gout. When was patient's last Mammogram screening? N/A Last Colonoscopy: 12/04/2018 Winifred Yeung RN PHYSICAL EXAMINATION: General: The patient is 53 year old, male well nourished, well hydrated in no acute distress. The patient is oriented to time, place, and person. VITALS: Blood pressure 118/60, pulse 105, temperature 36.6 C (97.9 F), height 172.7 cm (5' 8), weight 89.4 kg (197 lb), SpO2 95%. Body mass index is 29.95 kg/m . HEENT: Normal cephalic, ataumatic, pupils are equally round, sclera are anicteric, mucous membranesare moist, oropharynx is clear. Neck has no masses, asymmetry or lymphadenopathy. Respiratory: Clear to auscultation and percussion. Normal respiratory excursion and pattern. Cardiac: Examination is regular rate and rhythm. Normal S1/S2 Abdominal exam: Soft, nontender, with no palpable masses. No hepatosplenomegaly. No palpable hernias. Extremities: no clubbing, cyanosis or edema. No adenopathy. LABORATORY VALUES: As Noted RADIOLOGIC STUDIES: As Noted Assessment IMPRESSION: diarrhea, first degree relative with colon cancer, GERD PLAN: I have reviewed my findings with the surgeon. Will plan for upper and lower endoscopy. We discussed the risks and benefits of the planned endoscopy. I have informed the patient that complications can occur including failure to complete the endoscopy and perforation. Italo had the opportunity to ask questions concerning the planned endoscopy. My staff has also explained the procedure to the patient in understandable terms and has given the patient printed material concerning the procedure.Italo freely consents to surgery. I plan to use GoLytely bowel preparation Instructed patient to hold Trulicity for 1 week (1 injection) prior to endoscopy I have explained to the patient the difference between IV conscious sedation and MAC anesthesia - and I have offered either, according to the patient's wishes. I have explained that with IV conscioussedation there is no anesthesia provider available and therefore there is a limitation of the amount of IV medications that can be given and that the patient may wake up in the middle of the procedure and/or experience pain/discomfort during the procedure. Further discussion was done and the patient was given the opportunity to ask questions and all questions were answered. MAC anesthesia- d/t uncontrolled diabetes Italo was counseled that if there are changes in his/her medical condition, to let the office know if surgery should proceed. If there are changes in patient's medical condition from time of this encounter to the day of the procedure that preclude anesthesia, patient may have procedure cancelled for patient's safety. Diagnoses: (R19.7) Diarrhea, unspecified type (primary encounter diagnosis) (K21.9) Gastroesophageal reflux disease without esophagitis (Z80.0) FH: colon cancer in first degree relative <60 years old Portions of this documentation were copied and pasted from previous office visit notes in order to provide a cohesive continuity of the history. The note has been reviewed and edited and updated as necessary. Nia James APRN.WORKFORCE DEVELOPMENT SPECIALIST * Lali Raman MD - 04/01/2024 12:30 PM EDT HISTORY AND PHYSICAL Italo Burgos : 1970 REFERRING PHYSICIAN: 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 [address] [facility] [address] CHIEF COMPLAINT: Patient presents with: Consult: Colonoscopy consultation. HPI: Italo is a 53 year old male referred for endoscopy. Italo notes diarrhea after every meal x 3 years. Refers every time he eats he has instant diarrhea. Denies blood, or abd pain. Patient denies weight changes, blood in stools, black tarry stools or abdominal pain. Refers family history of colon issues.-father with colon cancer Italo notes no upper GI complaints. Takes Protonix Italo has a history of kidney transplant 03/2021. He follows with the transplant center last appointment 01/2024- no concerns, due to follow up at routine 6 mo visit. Italo has type 2 diabetes he follows with [facility], last appointment was 12/2023. Diabetes is uncontrolled most recent hemoglobin A1c was 10.2. Italo followed up with endocrinology today his hemoglobin A1c was 10.1. Dr. Durand increased his Trulicity but he is unsure to what dose. Italo has undergone prior endoscopy. Last EGD & colonoscopy in 11/[address] Raman at [facility] EGD Impression: - Normal esophagus. - Normal examined duodenum. - Biopsies were taken with a cold forceps for Helicobacter pylori testing. Colonoscopy: Impression: - Non-bleeding internal hemorrhoids. - No specimens collected. Pathology: CONVERTED FINAL DIAGNOSIS Stomach, antrum, biopsy - Reactive gastropathy. - No intestinal metaplasia or morphologic evidence of Helicobacter pylori organisms. ES/ka 12/08/2018 CURRENT MEDICATIONS Current Outpatient Medications Medication Sig carvedilol (COREG) 25 mg tablet Take 1 tablet by mouth two times a day. FLUoxetine (PROZAC) 10 mg capsule Take 1 capsule by mouth once daily. losartan (COZAAR) 25 mg tablet Take 2 tablets by mouth once daily. mycophenolate sodium DR (MYFORTIC) 180 mg EC tablet Take 2 tablets by mouth two times a day. gabapentin (NEURONTIN) 100 mg capsule Take 1 capsule by mouth daily at bedtime for 180 days. tacrolimus ER (ENVARSUS XR) 0.75 mg tablet Take 3 tablets by mouth once daily. loperamide (IMODIUM) 2 mg cap(s) Take 1 capsule by mouth four times a day as needed. Insulin Syringe-Needle U-100 1 mL 29 gauge x 1/2 1 Each as needed. For Intercavernal Injections uskanrfmhm-gvutmcpxibkk-nfkwyouejzg 30 MG - 1 MG - 10 MCG/ML injection (CPD) Inject 30 units into the intracavernosal region of the penis buPROPion (WELLBUTRIN) 75 mg tablet Take 1 tablet by mouth once daily. buPROPion XL (WELLBUTRIN XL) 300 mg 24 hr tablet Take 1 tablet by mouth once daily. pantoprazole DR (PROTONIX) 20 mg tablet Take 1 tablet by mouth once daily. sulfamethoxazole-trimethoprim (BACTRIM) 400-80 mg per tablet Take 1 tablet by mouth every Saturday, Saturday, and Saturday. pseudoephedrine (SUDAFED) 30 mg tablet Take Four 4 (30 mg) Tablets for an erection lasting more than 2 hours. If not improved in 1 hour MUST go to ER ergocalciferol 50,000 unit capsule (VITAMIN D2, DRISDOL) Take 1 capsule by mouth one time a week. predniSONE (DELTASONE) 5 mg tablet Take 1 tablet by mouth once daily. dulaglutide (TRULICITY) 0.75 mg/0.5 mL pen injector Inject 0.75 mg subcutaneously one time a week. insulin 50/50 lispro protamine-lispro units/mL (HUMALOG MIX 50-50 KWIKPEN) 100 unit/mL (50-50) pen Inject 30 Units subcutaneously daily at bedtime. insulin lispro (HUMALOG KWIKPEN INSULIN) 100 unit/mL Inject 20 units plus sliding scale with breakfast, 16 units plus SS with lunch, and 20 units + SS with dinner as directed. For snacks, inject 8 units plus sliding scale (Sliding scale: 2 units for every 40 >180 mg/dL) Insulin [place], Disposable, (BD ULTRA-FINE SANDRA PEN NEEDLE) 32 gauge x 5/32 Use as directed four times daily MEDICAL SUPPLY D/C oxygen Lancets lancets Test Blood Sugar 3 x/day. 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 DX: 250.E11.9. INSULIN DEP: yes glucagon 3 mg/actuation nasal spray (BAQSIMI) Use 1 [place] in the nose as needed for low blood sugar. May repeat after 15 minutes using a new device if there is no response. aspirin 81 mg chewable tablet chew and swallow 1 tablet by mouth once daily. fluticasone (FLONASE) 50 mcg/actuation nasal spray Use 2 Sprays in each nostril once daily. CPAP Initiate Auto PAP @ 5-20 cm of water with humidification. Mask (per patient preference) optional chin strap (if indicated) , filters, tubing, humidifier and lifetime supplies. >Compression Knee Highs 30-40 mm KNEE HIGH COMPRESSION STOCKINGS, 30-40 MM, I DX: EDEMA ACETAMINOPHEN ORAL Take by mouth. 1000 mg bid for pain / aches No current facility-administered medications for this visit. ALLERGIES: Patient has no known allergies. PAST MEDICAL HISTORY PAST MEDICAL HISTORY Diagnosis Date Acute diastolic (congestive) heart failure ([facility]) Bronchitis Chronic kidney failure, stage 4 (severe) ([facility]) 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 ([facility]) 12/16/2018 Depression Detached retina DM type 2, goal HbA1c < 7% ([facility]) Erectile dysfunction, unspecified erectile dysfunction type ESRD (end stage renal disease) ([facility]) GERD (gastroesophageal reflux disease) Hyperlipidemia Kidney replaced by transplant Kidney stones LUANNE (obstructive sleep apnea) PNA (pneumonia) Proliferative retinopathy 02/10/2019 PTE (post-transplant erythrocytosis) Snoring Unspecified essential hypertension Vitamin D deficiency Vitamin D deficiency PAST SURGICAL HISTORY PAST SURGICAL HISTORY Procedure Laterality Date AMPUTATION TOE,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 08/08/2018 Done at [facility] by Satish Phan MD CHOLECYSTECTOMY 1998 Cholecystectomy COLONOSCOPY 12/04/2018 CYSTO W/COMPLEX REMOVAL STONE & STENT 1999 EGD 12/04/2018 PAST SURGICAL HISTORY OF Left 2012 & 2014 removal eye fluid with instillation oil FAMILY HISTORY FAMILY HISTORY Problem Relation Age of Onset Colon Cancer Father 53 Diabetes Brother 52 Diabetes Sister Diabetes Mother 78 Heart Attack Mother Cancer Brother 49 lung Diabetes Son SOCIAL HISTORY Social History Tobacco Use Smoking status: Never Smokeless tobacco: Former Types: Snuff Tobacco comments: snuff x 33 years Quit in 2020 Vaping Use Vaping Use: Never used Substance Use Topics Alcohol use: Not Currently Drug use: Not Currently Types: Marijuana REVIEW OF SYMPTOMS: The review of systems data was entered by the nurse and reviewed by ct Nursing Notes: Winifred Yeung RN 03/24/2024 4:12 PM Signed REVIEW OF SYSTEMS: General: The patient denies fatigue, denies weight loss, denies weight gain, denies feeling hot, and denies feelings of cold. Eyes: The patient denies glaucoma, denies eye injury/surgery, wears glasses or contacts. Ear/Nose/Throat: The patient denies allergies, denies hayfever, denies ear infections, and denies bloody noses. Cardiovascular: The patient denies chest pain, denies heart disease, NOTES high blood pressure,denies cardiac stent, denies prior heart attack, denies irregular heart beat, NOTES high cholesterol, denies poor circulation, NOTES heart failure, other cardiac issues, NOTES claudication, NOTES cold feet, denies peripheral arterial stent. Respiratory: The patient denies tuberculosis, denies pneumonia, denies frequent cough, denies pulmonary embolism, denies shortness of breath, and denies coughing up blood. Gastrointestinal: The patient denies difficulty swallowing, NOTES acid reflux, denies ulcers, denies vomiting, denies jaundice/hepatitis, denies gallbladder problems, denies black or tarry stools, denies hemorrhoids, denies bleeding from rectum, denies diverticulitis, denies constipation, NOTES diarrhea, denies loss of stool control, and denies hernias. Kidney/Bladder: The patient NOTES kidney stones, denies urine infections, denies bloody urine and NOTES kidney failure with kidney transplant. Skin: The patient denies a history of skin cancer, denies bleeding/changing moles, and denies a history of skin rash. Neurologic: The patient denies a history of epilepsy/convulsions, denies headaches, denies head/spinal injuries, and denies stroke/TIA. Psychiatric: The patient NOTES psychiatric medications, NOTES depression, and denies voices, deniessubstance abuse. Endocrine: The patient denies thyroid disorders, NOTES diabetes, and denies hormonal problems. Hematologic: The patient denies a history of bruising, denies bleeding, and denies anemia, denies blood clots. Infections: The patient denies a history of measles and mumps, denies rheumatic fever, and denies sexually transmitted diseases. Musculoskeletal: The patient denies back pain/injury, denies back problems, denies sciatica, deniesknee/foot trouble, denies arthritis, or denies gout. When was patient's last Mammogram screening? N/A Last Colonoscopy: 12/04/2018 Winifred Yeung RN PHYSICAL EXAMINATION: General: The patient is 53 year old, male well nourished, well hydrated in no acute distress. The patient is oriented to time, place, and person. VITALS: Blood pressure 118/60, pulse 105, temperature 36.6 C (97.9 F), height 172.7 cm (5' 8), weight 89.4 kg (197 lb), SpO2 95%. Body mass index is 29.95 kg/m . HEENT: Normal cephalic, ataumatic, pupils are equally round, sclera are anicteric, mucous membranesare moist, oropharynx is clear. Neck has no masses, asymmetry or lymphadenopathy. Respiratory: Clear to auscultation and percussion. Normal respiratory excursion and pattern. Cardiac: Examination is regular rate and rhythm. Normal S1/S2 Abdominal exam: Soft, nontender, with no palpable masses. No hepatosplenomegaly. No palpable hernias. Extremities: no clubbing, cyanosis or edema. No adenopathy. LABORATORY VALUES: As Noted RADIOLOGIC STUDIES: As Noted Assessment IMPRESSION: diarrhea, first degree relative with colon cancer, GERD PLAN: I have reviewed my findings with the surgeon. Will plan for upper and lower endoscopy. We discussed the risks and benefits of the planned endoscopy. I have informed the patient that complications can occur including failure to complete the endoscopy and perforation. Italo had the opportunity to ask questions concerning the planned endoscopy. My staff has also explained the procedure to the patient in understandable terms and has given the patient printed material concerning the procedure.Italo freely consents to surgery. I plan to use GoLytely bowel preparation Instructed patient to hold Trulicity for 1 week (1 injection) prior to endoscopy I have explained to the patient the difference between IV conscious sedation and MAC anesthesia - and I have offered either, according to the patient's wishes. I have explained that with IV conscioussedation there is no anesthesia provider available and therefore there is a limitation of the amount of IV medications that can be given and that the patient may wake up in the middle of the procedure and/or experience pain/discomfort during the procedure. Further discussion was done and the patient was given the opportunity to ask questions and all questions were answered. MAC anesthesia- d/t uncontrolled diabetes Italo was counseled that if there are changes in his/her medical condition, to let the office know if surgery should proceed. If there are changes in patient's medical condition from time of this encounter to the day of the procedure that preclude anesthesia, patient may have procedure cancelled for patient's safety. Diagnoses: (R19.7) Diarrhea, unspecified type (primary encounter diagnosis) (K21.9) Gastroesophageal reflux disease without esophagitis (Z80.0) FH: colon cancer in first degree relative <60 years old Portions of this documentation were copied and pasted from previous office visit notes in order to provide a cohesive continuity of the history. The note has been reviewed and edited and updated as necessary. Nia James APRN.WORKFORCE DEVELOPMENT SPECIALIST documented in this encounterMary [facility] Telephone encounter Note * Telephone Encounter - Anita Manriquez MA - 04/01/2024 12:17 PM EDT Images from the original note were not included. Lali Raman MD One large container, thanks (wasn't able to state that in [employer]) Pharmacy notified. Anita Manriquez MA [facility]07-24-[facility] Miscellaneous Notes* Telephone Encounter - Anita Manriquez MA - 04/01/2024 12:17 PM EDT Images from the original note were not included. Lali Raman MD One large container, thanks (wasn't able to state that in [employer]) Pharmacy notified. Anita Manriquez MA * Telephone Encounter - Anita Manriquez MA - 04/01/2024 11:58 AM EDT [facility] pharmacy calling to check on the quantity for the Cholestyramine that was ordered.States 1G. Is patient to take daily for a certain amount of time? Do you want him to packets or large container? [phone] Khurram, the pharmacist is calling to verify. Please review and advise. Anita Manriquez MA documented in this encounterMary [facility]07-[facility]24 Telephone encounter Note * Telephone Encounter - Anita Manriquez MA - 04/01/2024 11:58 AM EDT [facility] pharmacy calling to check on the quantity for the Cholestyramine that was ordered.States 1G. Is patient to take daily for a certain amount of time? Do you want him to packets or large container? [phone] Khurram, the pharmacist is calling to verify. Please review and advise. Anita Manriquez MA [facility]07-[facility] Nurse Note* Winifred Yeung RN - 03/24/2024 4:46 PM EDT This Nurse reviewed and provided patient with copy of written instructions and education on EGD andcolonoscopy. The patient verbalized understanding and was given a number for questions. Winifred Yeung RN March 24, 2024 4:47 PM [facility] Nurse Note* Winifred Yeung RN - 03/24/2024 4:46 PM EDT This Nurse reviewed and provided patient with copy of written instructions and education on EGD andcolonoscopy. The patient verbalized understanding and was given a number for questions. Winifred Yeung RN March 24, 2024 4:47 PM * Winifred Yeung RN - 03/24/2024 4:10 PM EDT REVIEW OF SYSTEMS: General: The patient denies fatigue, denies weight loss, denies weight gain, denies feeling hot, and denies feelings of cold. Eyes: The patient denies glaucoma, denies eye injury/surgery, wears glasses or contacts. Ear/Nose/Throat: The patient denies allergies, denies hayfever, denies ear infections, and denies bloody noses. Cardiovascular: The patient denies chest pain, denies heart disease, NOTES high blood pressure,denies cardiac stent, denies prior heart attack, denies irregular heart beat, NOTES high cholesterol, denies poor circulation, NOTES heart failure, other cardiac issues, NOTES claudication, NOTES cold feet, denies peripheral arterial stent. Respiratory: The patient denies tuberculosis, denies pneumonia, denies frequent cough, denies pulmonary embolism, denies shortness of breath, and denies coughing up blood. Gastrointestinal: The patient denies difficulty swallowing, NOTES acid reflux, denies ulcers, denies vomiting, denies jaundice/hepatitis, denies gallbladder problems, denies black or tarry stools, denies hemorrhoids, denies bleeding from rectum, denies diverticulitis, denies constipation, NOTES diarrhea, denies loss of stool control, and denies hernias. Kidney/Bladder: The patient NOTES kidney stones, denies urine infections, denies bloody urine and NOTES kidney failure with kidney transplant. Skin: The patient denies a history of skin cancer, denies bleeding/changing moles, and denies a history of skin rash. Neurologic: The patient denies a history of epilepsy/convulsions, denies headaches, denies head/spinal injuries, and denies stroke/TIA. Psychiatric: The patient NOTES psychiatric medications, NOTES depression, and denies voices, deniessubstance abuse. Endocrine: The patient denies thyroid disorders, NOTES diabetes, and denies hormonal problems. Hematologic: The patient denies a history of bruising, denies bleeding, and denies anemia, denies blood clots. Infections: The patient denies a history of measles and mumps, denies rheumatic fever, and denies sexually transmitted diseases. Musculoskeletal: The patient denies back pain/injury, denies back problems, denies sciatica, deniesknee/foot trouble, denies arthritis, or denies gout. When was patient's last Mammogram screening? N/A Last Colonoscopy: 12/04/2018 ANDER Zeeally signed by Winifred Yeung RN at 03/24/2024 4:12 PM EDT documented in this encounterMary [facility]07-[facility] Nurse Note* Winifred Yeung RN - 03/24/2024 4:10 PM EDT REVIEW OF SYSTEMS: General: The patient denies fatigue, denies weight loss, denies weight gain, denies feeling hot, and denies feelings of cold. Eyes: The patient denies glaucoma, denies eye injury/surgery, wears glasses or contacts. Ear/Nose/Throat: The patient denies allergies, denies hayfever, denies ear infections, and denies bloody noses. Cardiovascular: The patient denies chest pain, denies heart disease, NOTES high blood pressure,denies cardiac stent, denies prior heart attack, denies irregular heart beat, NOTES high cholesterol, denies poor circulation, NOTES heart failure, other cardiac issues, NOTES claudication, NOTES cold feet, denies peripheral arterial stent. Respiratory: The patient denies tuberculosis, denies pneumonia, denies frequent cough, denies pulmonary embolism, denies shortness of breath, and denies coughing up blood. Gastrointestinal: The patient denies difficulty swallowing, NOTES acid reflux, denies ulcers, denies vomiting, denies jaundice/hepatitis, denies gallbladder problems, denies black or tarry stools, denies hemorrhoids, denies bleeding from rectum, denies diverticulitis, denies constipation, NOTES diarrhea, denies loss of stool control, and denies hernias. Kidney/Bladder: The patient NOTES kidney stones, denies urine infections, denies bloody urine and NOTES kidney failure with kidney transplant. Skin: The patient denies a history of skin cancer, denies bleeding/changing moles, and denies a history of skin rash. Neurologic: The patient denies a history of epilepsy/convulsions, denies headaches, denies head/spinal injuries, and denies stroke/TIA. Psychiatric: The patient NOTES psychiatric medications, NOTES depression, and denies voices, deniessubstance abuse. Endocrine: The patient denies thyroid disorders, NOTES diabetes, and denies hormonal problems. Hematologic: The patient denies a history of bruising, denies bleeding, and denies anemia, denies blood clots. Infections: The patient denies a history of measles and mumps, denies rheumatic fever, and denies sexually transmitted diseases. Musculoskeletal: The patient denies back pain/injury, denies back problems, denies sciatica, deniesknee/foot trouble, denies arthritis, or denies gout. When was patient's last Mammogram screening? N/A Last Colonoscopy: 12/04/2018 Winifred Yeung RN [facility] History of Present illness Narrative* Nia James APRN.WORKFORCE DEVELOPMENT SPECIALIST - 03/24/2024 4:00 PM EDT HISTORY AND PHYSICAL Italo Burgos : 1970 REFERRING PHYSICIAN: Delia Galvin [facility] [id number] CHIEF COMPLAINT: Patient presents with: Consult: Colonoscopy consultation. HPI: Italo is a 53 year old male referred for endoscopy. Italo notes diarrhea after every meal x 3 years. Refers every time he eats he has instant diarrhea. Denies blood, or abd pain. Patient denies weight changes, blood in stools, black tarry stools or abdominal pain. Refers family history of colon issues.-father with colon cancer Italo notes no upper GI complaints. Takes Protonix Italo has a history of kidney transplant 03/2021. He follows with the transplant center last appointment 01/2024- no concerns, due to follow up at routine 6 mo visit. Italo has type 2 diabetes he follows with [facility], last appointment was 12/2023. Diabetes is uncontrolled most recent hemoglobin A1c was 10.2. Italo followed up with endocrinology today his hemoglobin A1c was 10.1. Dr. Durand increased his Trulicity but he is unsure to what dose. Italo has undergone prior endoscopy. Last EGD & colonoscopy in 11/[address] Raman at [facility] EGD Impression: - Normal esophagus. - Normal examined duodenum. - Biopsies were taken with a cold forceps for Helicobacter pylori testing. Colonoscopy: Impression: - Non-bleeding internal hemorrhoids. - No specimens collected. Pathology: CONVERTED FINAL DIAGNOSIS Stomach, antrum, biopsy - Reactive gastropathy. - No intestinal metaplasia or morphologic evidence of Helicobacter pylori organisms. ES/ka 12/08/2018 Current Outpatient Medications Medication Sig carvedilol (COREG) 25 mg tablet Take 1 tablet by mouth two times a day. FLUoxetine (PROZAC) 10 mg capsule Take 1 capsule by mouth once daily. losartan (COZAAR) 25 mg tablet Take 2 tablets by mouth once daily. mycophenolate sodium DR (MYFORTIC) 180 mg EC tablet Take 2 tablets by mouth two times a day. gabapentin (NEURONTIN) 100 mg capsule Take 1 capsule by mouth daily at bedtime for 180 days. tacrolimus ER (ENVARSUS XR) 0.75 mg tablet Take 3 tablets by mouth once daily. loperamide (IMODIUM) 2 mg cap(s) Take 1 capsule by mouth four times a day as needed. Insulin Syringe-Needle U-100 1 mL 29 gauge x 1/2 1 Each as needed. For Intercavernal Injections mnlornghtx-jmawdspfpwjl-pmxpnwcjjcp 30 MG - 1 MG - 10 MCG/ML injection (CPD) Inject 30 units into the intracavernosal region of the penis buPROPion (WELLBUTRIN) 75 mg tablet Take 1 tablet by mouth once daily. buPROPion XL (WELLBUTRIN XL) 300 mg 24 hr tablet Take 1 tablet by mouth once daily. pantoprazole DR (PROTONIX) 20 mg tablet Take 1 tablet by mouth once daily. sulfamethoxazole-trimethoprim (BACTRIM) 400-80 mg per tablet Take 1 tablet by mouth every Saturday, Saturday, and Saturday. pseudoephedrine (SUDAFED) 30 mg tablet Take Four 4 (30 mg) Tablets for an erection lasting more than 2 hours. If not improved in 1 hour MUST go to ER ergocalciferol 50,000 unit capsule (VITAMIN D2, DRISDOL) Take 1 capsule by mouth one time a week. predniSONE (DELTASONE) 5 mg tablet Take 1 tablet by mouth once daily. dulaglutide (TRULICITY) 0.75 mg/0.5 mL pen injector Inject 0.75 mg subcutaneously one time a week. insulin 50/50 lispro protamine-lispro units/mL (HUMALOG MIX 50-50 KWIKPEN) 100 unit/mL (50-50) pen Inject 30 Units subcutaneously daily at bedtime. insulin lispro (HUMALOG KWIKPEN INSULIN) 100 unit/mL Inject 20 units plus sliding scale with breakfast, 16 units plus SS with lunch, and 20 units + SS with dinner as directed. For snacks, inject 8 units plus sliding scale (Sliding scale: 2 units for every 40 >180 mg/dL) Insulin [place], Disposable, (BD ULTRA-FINE SANDRA PEN NEEDLE) 32 gauge x 5/32 Use as directed four times daily MEDICAL SUPPLY D/C oxygen Lancets lancets Test Blood Sugar 3 x/day. 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 DX: 250.E11.9. INSULIN DEP: yes glucagon 3 mg/actuation nasal spray (BAQSIMI) Use 1 [place] in the nose as needed for low blood sugar. May repeat after 15 minutes using a new device if there is no response. aspirin 81 mg chewable tablet chew and swallow 1 tablet by mouth once daily. fluticasone (FLONASE) 50 mcg/actuation nasal spray Use 2 Sprays in each nostril once daily. CPAP Initiate Auto PAP @ 5-20 cm of water with humidification. Mask (per patient preference) optional chin strap (if indicated) , filters, tubing, humidifier and lifetime supplies. >Compression Knee Highs 30-40 mm KNEE HIGH COMPRESSION STOCKINGS, 30-40 MM, I DX: EDEMA ACETAMINOPHEN ORAL Take by mouth. 1000 mg bid for pain / aches No current facility-administered medications for this visit. ALLERGIES: Patient has no known allergies. PAST MEDICAL HISTORY Diagnosis Date Acute diastolic (congestive) heart failure ([facility]) Bronchitis Chronic kidney failure, stage 4 (severe) ([facility]) 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 ([facility]) 12/16/2018 Depression Detached retina DM type 2, goal HbA1c < 7% ([facility]) Erectile dysfunction, unspecified erectile dysfunction type ESRD (end stage renal disease) ([facility]) GERD (gastroesophageal reflux disease) Hyperlipidemia Kidney replaced by transplant Kidney stones LUANNE (obstructive sleep apnea) PNA (pneumonia) Proliferative retinopathy 02/10/2019 PTE (post-transplant erythrocytosis) Snoring Unspecified essential hypertension Vitamin D deficiency Vitamin D deficiency PAST SURGICAL HISTORY Procedure Laterality Date AMPUTATION TOE,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 08/08/2018 Done at [facility] by Satish Phan MD CHOLECYSTECTOMY 1998 Cholecystectomy COLONOSCOPY 12/04/2018 CYSTO W/COMPLEX REMOVAL STONE & STENT 1999 EGD 12/04/2018 PAST SURGICAL HISTORY OF Left 2012 & 2014 removal eye fluid with instillation oil FAMILY HISTORY Problem Relation Age of Onset Colon Cancer Father 53 Diabetes Brother 52 Diabetes Sister Diabetes Mother 78 Heart Attack Mother Cancer Brother 49 lung Diabetes Son Social History Tobacco Use Smoking status: Never Smokeless tobacco: Former Types: Snuff Tobacco comments: snuff x 33 years Quit in 2020 Vaping Use Vaping Use: Never used Substance Use Topics Alcohol use: Not Currently Drug use: Not Currently Types: Marijuana REVIEW OF SYMPTOMS: The review of systems data was entered by the nurse and reviewed by ct Nursing Notes: Winifred Yeung RN 03/24/2024 4:12 PM Signed REVIEW OF SYSTEMS: General: The patient denies fatigue, denies weight loss, denies weight gain, denies feeling hot, and denies feelings of cold. Eyes: The patient denies glaucoma, denies eye injury/surgery, wears glasses or contacts. Ear/Nose/Throat: The patient denies allergies, denies hayfever, denies ear infections, and denies bloody noses. Cardiovascular: The patient denies chest pain, denies heart disease, NOTES high blood pressure,denies cardiac stent, denies prior heart attack, denies irregular heart beat, NOTES high cholesterol, denies poor circulation, NOTES heart failure, other cardiac issues, NOTES claudication, NOTES cold feet, denies peripheral arterial stent. Respiratory: The patient denies tuberculosis, denies pneumonia, denies frequent cough, denies pulmonary embolism, denies shortness of breath, and denies coughing up blood. Gastrointestinal: The patient denies difficulty swallowing, NOTES acid reflux, denies ulcers, denies vomiting, denies jaundice/hepatitis, denies gallbladder problems, denies black or tarry stools, denies hemorrhoids, denies bleeding from rectum, denies diverticulitis, denies constipation, NOTES diarrhea, denies loss of stool control, and denies hernias. Kidney/Bladder: The patient NOTES kidney stones, denies urine infections, denies bloody urine and NOTES kidney failure with kidney transplant. Skin: The patient denies a history of skin cancer, denies bleeding/changing moles, and denies a history of skin rash. Neurologic: The patient denies a history of epilepsy/convulsions, denies headaches, denies head/spinal injuries, and denies stroke/TIA. Psychiatric: The patient NOTES psychiatric medications, NOTES depression, and denies voices, deniessubstance abuse. Endocrine: The patient denies thyroid disorders, NOTES diabetes, and denies hormonal problems. Hematologic: The patient denies a history of bruising, denies bleeding, and denies anemia, denies blood clots. Infections: The patient denies a history of measles and mumps, denies rheumatic fever, and denies sexually transmitted diseases. Musculoskeletal: The patient denies back pain/injury, denies back problems, denies sciatica, deniesknee/foot trouble, denies arthritis, or denies gout. When was patient's last Mammogram screening? N/A Last Colonoscopy: 12/04/2018 Winifred Yeung RN PHYSICAL EXAMINATION: General: The patient is 53 year old, male well nourished, well hydrated in no acute distress. The patient is oriented to time, place, and person. VITALS: Blood pressure 118/60, pulse 105, temperature 36.6 C (97.9 F), height 172.7 cm (5' 8), weight 89.4 kg (197 lb), SpO2 95%. Body mass index is 29.95 kg/m . HEENT: Normal cephalic, ataumatic, pupils are equally round, sclera are anicteric, mucous membranesare moist, oropharynx is clear. Neck has no masses, asymmetry or lymphadenopathy. Respiratory: Clear to auscultation and percussion. Normal respiratory excursion and pattern. Cardiac: Examination is regular rate and rhythm. Normal S1/S2 Abdominal exam: Soft, nontender, with no palpable masses. No hepatosplenomegaly. No palpable hernias. Extremities: no clubbing, cyanosis or edema. No adenopathy. LABORATORY VALUES: As Noted RADIOLOGIC STUDIES: As Noted Assessment IMPRESSION: diarrhea, first degree relative with colon cancer, GERD PLAN: I have reviewed my findings with the surgeon. Will plan for upper and lower endoscopy. We discussed the risks and benefits of the planned endoscopy. I have informed the patient that complications can occur including failure to complete the endoscopy and perforation. Italo had the opportunity to ask questions concerning the planned endoscopy. My staff has also explained the procedure to the patient in understandable terms and has given the patient printed material concerning the procedure.Italo freely consents to surgery. I plan to use GoLytely bowel preparation Instructed patient to hold Trulicity for 1 week (1 injection) prior to endoscopy I have explained to the patient the difference between IV conscious sedation and MAC anesthesia - and I have offered either, according to the patient's wishes. I have explained that with IV conscioussedation there is no anesthesia provider available and therefore there is a limitation of the amount of IV medications that can be given and that the patient may wake up in the middle of the procedure and/or experience pain/discomfort during the procedure. Further discussion was done and the patient was given the opportunity to ask questions and all questions were answered. MAC anesthesia- d/t uncontrolled diabetes Italo was counseled that if there are changes in his/her medical condition, to let the office know if surgery should proceed. If there are changes in patient's medical condition from time of this encounter to the day of the procedure that preclude anesthesia, patient may have procedure cancelled for patient's safety. Diagnoses: (R19.7) Diarrhea, unspecified type (primary encounter diagnosis) (K21.9) Gastroesophageal reflux disease without esophagitis (Z80.0) FH: colon cancer in first degree relative <60 years old Portions of this documentation were copied and pasted from previous office visit notes in order to provide a cohesive continuity of the history. The note has been reviewed and edited and updated as necessary. Nia James APRN.CNP documented in this encounterMary [facility] NoteHNO ID: [id number] Author: NIA JAMES APRN.CNP Service: ? Author Type: Nurse Practitioner Type: Progress Notes Filed: 03/24/2024 16:26 Note Text: HISTORY AND PHYSICAL Italo Burgos : 1970 REFERRING PHYSICIAN: Delia Burch0 [employer] [place] [employer] [facility] [id number] CHIEF COMPLAINT: Patient presents with: Consult: Colonoscopy consultation. HPI: Italo is a 53 year old male referred for endoscopy. Italo notes diarrhea after every meal x 3 years. Refers every time he eats he has instant diarrhea. Denies blood, or abd pain. Patient denies weight changes, blood in stools, black tarry stools or abdominal pain. Refers family history of colon issues.-father with colon cancer Italo notes no upper GI complaints. Takes Protonix Italo has a history of kidney transplant 03/2021. He follows with the transplant center last appointment 01/2024- no concerns, due to follow up at routine 6 mo visit. Italo has type 2 diabetes he follows with [facility], last appointment was 12/2023. Diabetes is uncontrolled most recent hemoglobin A1c was 10.2. Italo followed up with endocrinology today his hemoglobin A1c was 10.1. Dr. Durand increased his Trulicity but he is unsure to what dose. Italo has undergone prior endoscopy. Last EGD AND colonoscopy in 11/[address] Raman at [facility] EGD Impression: - Normal esophagus. - Normal examined duodenum. - Biopsies were taken with a cold forceps for Helicobacter pylori testing. Colonoscopy: Impression: - Non-bleeding internal hemorrhoids. - No specimens collected. Pathology: CONVERTED FINAL DIAGNOSIS Stomach, antrum, biopsy - Reactive gastropathy. - No intestinal metaplasia or morphologic evidence of Helicobacter pylori organisms. BERTA/dagoberto 12/08/2018 Current Outpatient Medications Medication Sig carvedilol (COREG) 25 mg tablet Take 1 tablet by mouth two times a day. FLUoxetine (PROZAC) 10 mg capsule Take 1 capsule by mouth once daily. losartan (COZAAR) 25 mg tablet Take 2 tablets by mouth once daily. mycophenolate sodium DR (MYFORTIC) 180 mg EC tablet Take 2 tablets by mouth two times a day. gabapentin (NEURONTIN) 100 mg capsule Take 1 capsule by mouth daily at bedtime for 180 days. tacrolimus ER (ENVARSUS XR) 0.75 mg tablet Take 3 tablets by mouth once daily. loperamide (IMODIUM) 2 mg cap(s) Take 1 capsule by mouth four times a day as needed. Insulin Syringe-Needle U-100 1 mL 29 gauge x 1/2 1 Each as needed. For Intercavernal Injections jlqdlrkfel-udyfmpwfalzv-jdayhijmfbr 30 MG - 1 MG - 10 MCG/ML injection (CPD) Inject 30 units into the intracavernosal region of the penis buPROPion (WELLBUTRIN) 75 mg tablet Take 1 tablet by mouth once daily. buPROPion XL (WELLBUTRIN XL) 300 mg 24 hr tablet Take 1 tablet by mouth once daily. pantoprazole DR (PROTONIX) 20 mg tablet Take 1 tablet by mouth once daily. sulfamethoxazole-trimethoprim (BACTRIM) 400-80 mg per tablet Take 1 tablet by mouth every Saturday, Saturday, and Saturday. pseudoephedrine (SUDAFED) 30 mg tablet Take Four 4 (30 mg) Tablets for an erection lasting more than 2 hours. If not improved in 1 hour MUST go to ER ergocalciferol 50,000 unit capsule (VITAMIN D2, DRISDOL) Take 1 capsule by mouth one time a week. predniSONE (DELTASONE) 5 mg tablet Take 1 tablet by mouth once daily. dulaglutide (TRULICITY) 0.75 mg/0.5 mL pen injector Inject 0.75 mg subcutaneously one time a week. insulin 50/50 lispro protamine-lispro units/mL (HUMALOG MIX 50-50 KWIKPEN) 100 unit/mL (50-50) pen Inject 30 Units subcutaneously daily at bedtime. insulin lispro (HUMALOG KWIKPEN INSULIN) 100 unit/mL Inject 20 units plus sliding scale with breakfast, 16 units plus SS with lunch, and 20 units + SS with dinner as directed. For snacks, inject 8 units plus sliding scale (Sliding scale: 2 units for every 40 >180 mg/dL) Insulin [place], Disposable, (BD ULTRA-FINE SANDRA PEN NEEDLE) 32 gauge x 32 Use as directed four times daily MEDICAL SUPPLY D/C oxygen Lancets lancets Test Blood Sugar 3 x/day. 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 DX: 250.E11.9. INSULIN DEP: yes glucagon 3 mg/actuation nasal spray (BAQSIMI) Use 1 [place] in the nose as needed for low blood sugar. May repeat after 15 minutes using a new device if there is no response. aspirin 81 mg chewable tablet chew and swallow 1 tablet by mouth once daily. fluticasone (FLONASE) 50 mcg/actuation nasal spray Use 2 Sprays in each nostril once daily. CPAP Initiate Auto PAP @ 5-20 cm of water (more content not included)... [facility]07-10-2024 NoteHNO ID: [id number] Author: DELIA KAUFMAN APRN.WORKFORCE DEVELOPMENT SPECIALIST Service: ? Author Type: Nurse Practitioner Type: Progress Notes Filed: 03/18/2024 17:55 Note Text: Chief Complaint Patient presents with: Recheck: 6 week follow up HPI Italo Burgos is a 53 year old male who presents here today for depression follow-up. Patient was seen 6 weeks ago and started on fluoxetine. Feels much improvement in depression. Sleep: is described as normal Alcohol use: does not drink any alcohol Drug use: No Appetite: good Suicidal Thoughts: No suicidal ideation, intent or plan Support: Comes from multiple sources including family of siblings Counseling: Yes, goes once a month to counseling center. REVIEW OF SYSTEMS See HPI PAST MEDICAL HISTORY Diagnosis Date Acute diastolic (congestive) heart failure (HCC) Bronchitis Chronic kidney failure, stage 4 (severe) ([facility]) 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 ([facility]) 12/16/2018 Depression Detached retina DM type 2, goal HbA1c < 7% ([facility]) Erectile dysfunction, unspecified erectile dysfunction type ESRD (end stage renal disease) ([facility]) GERD (gastroesophageal reflux disease) Hyperlipidemia Kidney replaced by transplant Kidney stones LUANNE (obstructive sleep apnea) PNA (pneumonia) Proliferative retinopathy 02/10/2019 PTE (post-transplant erythrocytosis) Snoring Unspecified essential hypertension Vitamin D deficiency Vitamin D deficiency PAST SURGICAL HISTORY Procedure Laterality Date AMPUTATION TOE,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 MEDICATIONS carvedilol (COREG) 25 mg tablet Take 1 tablet by mouth two times a day. FLUoxetine (PROZAC) 10 mg capsule Take 1 capsule by mouth once daily. losartan (COZAAR) 25 mg tablet Take 2 tablets by mouth once daily. mycophenolate sodium DR (MYFORTIC) 180 mg EC tablet Take 2 tablets by mouth two times a day. gabapentin (NEURONTIN) 100 mg capsule Take 1 capsule by mouth daily at bedtime for 180 days. tacrolimus ER (ENVARSUS XR) 0.75 mg tablet Take 3 tablets by mouth once daily. loperamide (IMODIUM) 2 mg cap(s) Take 1 capsule by mouth four times a day as needed. Insulin Syringe-Needle U-100 1 mL 29 gauge x 1/2 1 Each as needed. For Intercavernal Injections puulkmggln-utkvgophognf-wevbcaevvec 30 MG - 1 MG - 10 MCG/ML injection (CPD) Inject 30 units into the intracavernosal region of the penis buPROPion (WELLBUTRIN) 75 mg tablet Take 1 tablet by mouth once daily. buPROPion XL (WELLBUTRIN XL) 300 mg 24 hr tablet Take 1 tablet by mouth once daily. pantoprazole DR (PROTONIX) 20 mg tablet Take 1 tablet by mouth once daily. sulfamethoxazole-trimethoprim (BACTRIM) 400-80 mg per tablet Take 1 tablet by mouth every Saturday, Saturday, and Saturday. pseudoephedrine (SUDAFED) 30 mg tablet Take Four 4 (30 mg) Tablets for an erection lasting more than 2 hours. If not improved in 1 hour MUST go to ER ergocalciferol 50,000 unit capsule (VITAMIN D2, DRISDOL) Take 1 capsule by mouth one time a week. predniSONE (DELTASONE) 5 mg tablet Take 1 tablet by mouth once daily. dulaglutide (TRULICITY) 0.75 mg/0.5 mL pen injector Inject 0.75 mg subcutaneously one time a week. insulin 50/50 lispro protamine-lispro units/mL (HUMALOG MIX 50-50 KWIKPEN) 100 unit/mL (50-50) pen Inject 30 Units subcutaneously daily at bedtime. insulin lispro (HUMALOG KWIKPEN INSULIN) 100 unit/mL Inject 20 units plus sliding scale with breakfast, 16 units plus SS with lunch, and 20 units + SS with dinner as directed. For snacks, inject 8 units plus sliding scale (Sliding scale: 2 units for every 40 >180 mg/dL) Insulin [place], Disposable, (BD ULTRA-FINE SANDRA PEN NEEDLE) 32 gauge x 5/32 Use as directed four times daily MEDICAL SUPPLY D/C oxygen Lancets lancets Test Blood Sugar 3 x/day. 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 DX: 250.E11.9. INSULIN DEP: yes glucagon 3 mg/actuation nasal spray (BAQSIMI) Use 1 [place] in the nose as needed for low blood sugar. May repeat after 15 minutes using a new device if there is no response. aspirin 81 mg chewable tablet chew and swallow 1 tablet by mouth once daily. fluticasone (FLONASE) 50 mcg/actuation nasal spray Use 2 Sprays in each nostril once (more content not included)...[facility]07-10-2024 History of Present illness Narrative* 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 APRN.WORKFORCE DEVELOPMENT SPECIALIST - 03/18/2024 5:44 PM EDT Chief Complaint Patient presents with: Recheck: 6 week follow up HPI Italo Burgos is a 53 year old male who presents here today for depression follow-up. Patient was seen 6 weeks ago and started on fluoxetine. Feels much improvement in depression. Sleep: is described as normal Alcohol use: does not drink any alcohol Drug use: No Appetite: good Suicidal Thoughts: No suicidal ideation, intent or plan Support: Comes from multiple sources including family of siblings Counseling: Yes, goes once a month to counseling center. 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 Depression Detached retina DM type 2, goal HbA1c < 7% ([facility]) Erectile dysfunction, unspecified erectile dysfunction type ESRD (end stage renal disease) ([facility]) GERD (gastroesophageal reflux disease) Hyperlipidemia Kidney replaced by transplant Kidney stones LUANNE (obstructive sleep apnea) PNA (pneumonia) Proliferative retinopathy 02/10/2019 PTE (post-transplant erythrocytosis) Snoring Unspecified essential hypertension Vitamin D deficiency Vitamin D deficiency PAST SURGICAL HISTORY Procedure Laterality Date AMPUTATION TOE,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 MEDICATIONS carvedilol (COREG) 25 mg tablet Take 1 tablet by mouth two times a day. FLUoxetine (PROZAC) 10 mg capsule Take 1 capsule by mouth once daily. losartan (COZAAR) 25 mg tablet Take 2 tablets by mouth once daily. mycophenolate sodium DR (MYFORTIC) 180 mg EC tablet Take 2 tablets by mouth two times a day. gabapentin (NEURONTIN) 100 mg capsule Take 1 capsule by mouth daily at bedtime for 180 days. tacrolimus ER (ENVARSUS XR) 0.75 mg tablet Take 3 tablets by mouth once daily. loperamide (IMODIUM) 2 mg cap(s) Take 1 capsule by mouth four times a day as needed. Insulin Syringe-Needle U-100 1 mL 29 gauge x 1/2 1 Each as needed. For Intercavernal Injections qdljxrifqz-akkygegbvkgs-qtpnykhhkrz 30 MG - 1 MG - 10 MCG/ML injection (CPD) Inject 30 units into the intracavernosal region of the penis buPROPion (WELLBUTRIN) 75 mg tablet Take 1 tablet by mouth once daily. buPROPion XL (WELLBUTRIN XL) 300 mg 24 hr tablet Take 1 tablet by mouth once daily. pantoprazole DR (PROTONIX) 20 mg tablet Take 1 tablet by mouth once daily. sulfamethoxazole-trimethoprim (BACTRIM) 400-80 mg per tablet Take 1 tablet by mouth every Saturday, Saturday, and Saturday. pseudoephedrine (SUDAFED) 30 mg tablet Take Four 4 (30 mg) Tablets for an erection lasting more than 2 hours. If not improved in 1 hour MUST go to ER ergocalciferol 50,000 unit capsule (VITAMIN D2, DRISDOL) Take 1 capsule by mouth one time a week. predniSONE (DELTASONE) 5 mg tablet Take 1 tablet by mouth once daily. dulaglutide (TRULICITY) 0.75 mg/0.5 mL pen injector Inject 0.75 mg subcutaneously one time a week. insulin 50/50 lispro protamine-lispro units/mL (HUMALOG MIX 50-50 KWIKPEN) 100 unit/mL (50-50) pen Inject 30 Units subcutaneously daily at bedtime. insulin lispro (HUMALOG KWIKPEN INSULIN) 100 unit/mL Inject 20 units plus sliding scale with breakfast, 16 units plus SS with lunch, and 20 units + SS with dinner as directed. For snacks, inject 8 units plus sliding scale (Sliding scale: 2 units for every 40 >180 mg/dL) Insulin [place], Disposable, (BD ULTRA-FINE SANDRA PEN NEEDLE) 32 gauge x 5/32 Use as directed four times daily MEDICAL SUPPLY D/C oxygen Lancets lancets Test Blood Sugar 3 x/day. 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 DX: 250.E11.9. INSULIN DEP: yes glucagon 3 mg/actuation nasal spray (BAQSIMI) Use 1 [place] in the nose as needed for low blood sugar. May repeat after 15 minutes using a new device if there is no response. aspirin 81 mg chewable tablet chew and swallow 1 tablet by mouth once daily. fluticasone (FLONASE) 50 mcg/actuation nasal spray Use 2 Sprays in each nostril once daily. CPAP Initiate Auto PAP @ 5-20 cm of water with humidification. Mask (per patient preference) optional chin strap (if indicated) , filters, tubing, humidifier and lifetime supplies. >Compression Knee Highs 30-40 mm KNEE HIGH COMPRESSION STOCKINGS, 30-40 MM, I DX: EDEMA ACETAMINOPHEN ORAL Take by mouth. 1000 mg bid for pain / aches FAMILY HISTORY Problem Relation Age of Onset Colon Cancer Father 53 Diabetes Brother 52 Diabetes Sister Diabetes Mother 78 Heart Attack Mother Cancer Brother 49 lung Diabetes Son Social History Tobacco Use Smoking status: Never Smokeless tobacco: Former Types: Snuff Tobacco comments: snuff x 33 years Quit in 2020 Vaping Use Vaping Use: Never used Substance Use Topics Alcohol use: Not Currently Drug use: Not Currently Types: Marijuana PHYSICAL EXAM BP 118/72 Pulse 102 Resp 16 Wt 90.3 kg (199 lb) SpO2 95% BMI 30.26 kg/m Appearance: well dressed well groomed, cooperative, and pleasant Behavior: good eye contact Speech: fluent and coherent Mood: happy Affect: appropriate Perceptions: none Thought process: goal directed Thought Content: normal Intelligence level: normal Insight: good Judgment: good ASSESSMENT/PLAN: 1. Moderate episode of recurrent major depressive disorder (HCC) - ICD9: 296.32, ICD10: F33.1 Controlled well with current treatment - Reviewed concept of neurochemical imbalance wth depression/anxiety, treatment options and benefits of counseling in combination with medication. Also reviewed benefits of sleep hygeine, diet and exercise - Follow-up in 3 months or sooner as needed - Instructed patient to contact office or [id number] after-hours promptly should condition worsen or any new symptoms appear. - Counseling Center [facility] and after hours crisis line Prescription instructions reviewed with patient as applicable. Potential red flag symptoms discussed with the patient. Reviewed appropriate action plan to take if red flag symptoms occur. Patient agreeable to treatment plan 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 APRN.CNP [facility] Tele[facility] encounter Note * Telephone Encounter - Kirti Rehman RN - 02/26/2024 2:40 PM EDT Octavia with [facility] calling and requesting patient's most recent office visit note to be faxed to them for processing of patient's Dexcom CGM. Faxed as requested to [phone]. Thank you. [facility]06-19-[facility] Miscellaneous Notes* Telephone Encounter - Kirti Rehman RN - 02/26/2024 2:40 PM EDT Octavia with [facility] calling and requesting patient's most recent office visit note to be faxed to them for processing of patient's Dexcom CGM. Faxed as requested to [phone]. Thank you. documented in [facility] History of Present illness Narrative* 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 APRN.WORKFORCE DEVELOPMENT SPECIALIST - 01/22/2024 4:43 PM EDT CC: Patient presents with: Recheck: 3 month follow up HPI Italo Burgos is a 53 year old male who presents today for routine follow up. In office his glucose is 55 and is cold and clammy. Ate a few pieces of candy and then 4 ounces of soda with glucose at 80 by the time he left office. Symptoms of cold and sweaty resolved. Gets low glucose average of 4 times a month. Reports hi does not follow a consistent healthy diet and has spoken with dietitians and educators previously.: Mr. Burgos denies excessive thirst or increased frequency of urination, chest pain or dyspnea , numbness, tingling or pain in extremities, new or unusualvisual symptoms, weight loss/gain, lightheadedness/dizziness, and bowel changes/loose stools. He iscompliant with medication(s) and is tolerating med(s) without any side effects. He reports checkinghis glucose on a continuous schedule . Works with endocrinology and sees Dr. Durand in a few weeks. Patient's last HgA1C was Hemoglobin A1C (%) Date Value 11/26/2023 10.5 10/13/2022 8.6 07/11/2021 8.2 03/23/2021 7.5 Hemoglobin A1C (POCT) (%) Date Value 07/13/2022 10.6 ) HTN w/ CKD: Mr. Burgos indicates that he is feeling well and denies any symptoms referable to elevated blood pressure. Specifically denies headache, chest pain, palpitations, dyspnea, and peripheraledema. Patient denies any side effects of his medication(s) and is compliant with their regimen. Fatoumataoes check BP's away from this office with average BP's in the 120s/80s-90s range. Italo works out regularly 7 times per week with walking. He watches his diet for sodium, low fat and low cholesterolmost of the time. Last 3 Encounter BP Readings: Date: BP: 01/22/2024 116/78 01/13/2024 127/73 11/26/2023 140/80 LUANNE: Typically wears his cpap every night for average of 7 hours unless he is ill. Wakes up feelingrefreshed. History of kidney transplant 3 years ago. Follows with transplant team every 6 months and recently saw them without any concern. At end of appointment wanted to discuss that his depression is not well controlled with recent break up with girlfriend. Has been on wellbutrin for years but no longer feels is effective. Sleep: is described as normal Alcohol use: does not drink any alcohol Drug use: No Appetite: varies Suicidal Thoughts: No suicidal or homicidal ideation, intent or plan REVIEW OF SYSTEMS See HPI PAST MEDICAL HISTORY Diagnosis Date Acute diastolic (congestive) heart failure (HCC) Bronchitis Chronic kidney failure, stage 4 (severe) ([facility]) 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 ([facility]) 12/16/2018 Depression Detached retina DM type 2, goal HbA1c < 7% ([facility]) Erectile dysfunction, unspecified erectile dysfunction type ESRD (end stage renal disease) ([facility]) GERD (gastroesophageal reflux disease) Hyperlipidemia Kidney replaced by transplant Kidney stones LUANNE (obstructive sleep apnea) PNA (pneumonia) Proliferative retinopathy 02/10/2019 PTE (post-transplant erythrocytosis) Snoring Unspecified essential hypertension Vitamin D deficiency Vitamin D deficiency PAST SURGICAL HISTORY Procedure Laterality Date AMPUTATION TOE,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 MEDICATIONS losartan (COZAAR) 25 mg tablet Take 2 tablets by mouth once daily. mycophenolate sodium DR (MYFORTIC) 180 mg EC tablet Take 2 tablets by mouth two times a day. gabapentin (NEURONTIN) 100 mg capsule Take 1 capsule by mouth daily at bedtime for 180 days. tacrolimus ER (ENVARSUS XR) 0.75 mg tablet Take 3 tablets by mouth once daily. loperamide (IMODIUM) 2 mg cap(s) Take 1 capsule by mouth four times a day as needed. Insulin Syringe-Needle U-100 1 mL 29 gauge x 1/2 1 Each as needed. For Intercavernal Injections wezgegbgtk-qbcttgchnlaf-jswvrdngjif 30 MG - 1 MG - 10 MCG/ML injection (CPD) Inject 30 units into the intracavernosal region of the penis buPROPion (WELLBUTRIN) 75 mg tablet Take 1 tablet by mouth once daily. buPROPion XL (WELLBUTRIN XL) 300 mg 24 hr tablet Take 1 tablet by mouth once daily. pantoprazole DR (PROTONIX) 20 mg tablet Take 1 tablet by mouth once daily. sulfamethoxazole-trimethoprim (BACTRIM) 400-80 mg per tablet Take 1 tablet by mouth every Saturday, Saturday, and Saturday. pseudoephedrine (SUDAFED) 30 mg tablet Take Four 4 (30 mg) Tablets for an erection lasting more than 2 hours. If not improved in 1 hour MUST go to ER ergocalciferol 50,000 unit capsule (VITAMIN D2, DRISDOL) Take 1 capsule by mouth one time a week. predniSONE (DELTASONE) 5 mg tablet Take 1 tablet by mouth once daily. dulaglutide (TRULICITY) 0.75 mg/0.5 mL pen injector Inject 0.75 mg subcutaneously one time a week. insulin 50/50 lispro protamine-lispro units/mL (HUMALOG MIX 50-50 KWIKPEN) 100 unit/mL (50-50) pen Inject 30 Units subcutaneously daily at bedtime. carvedilol (COREG) 25 mg tablet Take 1 tablet by mouth twice daily. insulin lispro (HUMALOG KWIKPEN INSULIN) 100 unit/mL Inject 20 units plus sliding scale with breakfast, 16 units plus SS with lunch, and 20 units + SS with dinner as directed. For snacks, inject 8 units plus sliding scale (Sliding scale: 2 units for every 40 >180 mg/dL) Insulin [place], Disposable, (BD ULTRA-FINE SANDRA PEN NEEDLE) 32 gauge x 5/32 Use as directed four times daily MEDICAL SUPPLY D/C oxygen Lancets lancets Test Blood Sugar 3 x/day. 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 DX: 250.E11.9. INSULIN DEP: yes glucagon 3 mg/actuation nasal spray (BAQSIMI) Use 1 [place] in the nose as needed for low blood sugar. May repeat after 15 minutes using a new device if there is no response. aspirin 81 mg chewable tablet chew and swallow 1 tablet by mouth once daily. fluticasone (FLONASE) 50 mcg/actuation nasal spray Use 2 Sprays in each nostril once daily. CPAP Initiate Auto PAP @ 5-20 cm of water with humidification. Mask (per patient preference) optional chin strap (if indicated) , filters, tubing, humidifier and lifetime supplies. >Compression Knee Highs 30-40 mm KNEE HIGH COMPRESSION STOCKINGS, 30-40 MM, I DX: EDEMA ACETAMINOPHEN ORAL Take by mouth. 1000 mg bid for pain / aches FAMILY HISTORY Problem Relation Age of Onset Colon Cancer Father 53 Diabetes Brother 52 Diabetes Sister Diabetes Mother 78 Heart Attack Mother Cancer Brother 49 lung Diabetes Son Social History Tobacco Use Smoking status: Never Smokeless tobacco: Former Types: Snuff Tobacco comments: snuff x 33 years Quit in 2020 Vaping Use Vaping Use: Never used Substance Use Topics Alcohol use: Not Currently Drug use: Not Currently Types: Marijuana PHYSICAL EXAM BP 116/78 Pulse 97 Resp 16 Wt 91.6 kg (202 lb) SpO2 97% BMI 30.72 kg/m General Appearance: well appearing, in no acute distress, alert Eyes: conjunctiva pink and moist, no icterus, sclera white, non-injected Lungs: Lungs clear to auscultation. No wheezing, rhonchi, rales. Heart: RRR without murmur, gallop, or rubs. No ectopy Health maintenance reviewed with patient: Colorectal Cancer Screening due on 12/05/2023 Prostate Cancer Screening Discussion Never done Hepatitis A Vaccine(1 of 2 - Risk 2-dose series) due on 09/18/2024 Shingrix Vaccine(1 of 2) due on 09/18/2024 Covid-19 Vaccine(4 - season) due on 09/18/2024 Pneumococcal Vaccine(3 of 3 - PPSV23 or PCV20) due on 09/18/2024 HbA1C due on 02/26/2024 Diabetic Foot Exam due on 08/21/2024 Urine Albumin:Creatinine Ratio due on 09/07/2024 Dilated Retinal Exam due on 10/03/2024 Annual PCP Team Chronic Disease Visit due on 11/25/2024 LDL Cholesterol due on 01/09/2025 Serum Creatinine due on 01/09/2025 BP Controlled (<130/80) due on 01/12/2025 DTaP,Tdap,Td Vaccine(2 - Td or Tdap) due on 05/24/2025 Influenza Vaccine Completed Hepatitis C Screening Completed HIV Screening Completed HPV Vaccine Aged Out DATA REVIEWED: Most recent labs ASSESSMENT/PLAN: 1. Type 1 diabetes mellitus on insulin therapy (HCC) - ICD9: 250.01, ICD10: E10.9 (primary diagnosis) - Uncontrolled - declines diabetic education. - Continue current medications as ordered by endocrinology unless appointment is canceled then follow up in this office to review any needed medication changes - Blood glucose monitoring on a continuous glucose monitoring schedule - Counseled on healthy diet and regular exercise - Discussed need for and benefit of weight loss. BMI 30.72 kg/(m^2) - CONSULT TO GENERAL SURGERY 2. Moderate episode of recurrent major depressive disorder (HCC) - ICD9: 296.32, ICD10: F33.1 Reports being uncontrolled Adding fluoxetine - Reviewed concept of neurochemical imbalance wth depression/anxiety, treatment options and benefits of counseling in combination with medication. Also reviewed benefits of sleep hygeine, diet and exercise - Follow-up in 6 weeks or sooner as needed - Instructed patient to contact office or [id number] after-hours promptly should condition worsen or any new symptoms appear. - Counseling Center [facility] and after hours crisis line 3. Hypertension goal BP (blood pressure) < 140/90 - ICD9: 401.9, ICD10: I10 - Controlled - Continue current medications - Recommend home blood pressure monitoring, to bring results to next visit - Encouraged sodium restriction, DASH or Mediterranean diet - Recommend regular aerobic exercise 4. Kidney transplant recipient - ICD9: V42.0, ICD10: Z94.0 - stable, continue with transplant team recommendations. - need to work at getting diabetes controlled to prevent further issues. - CONSULT TO GENERAL SURGERY 5. Stage 3a chronic kidney disease (HCC) - ICD9: 585.3, ICD10: N18.31 - eGFR: 61 Stable - Counseled on avoiding NSAIDs, adequate hydration 6. 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 Colon cancer screening - ICD9: V76.51, ICD10: Z12.11 With uncontrolled diabetes, transplant recipient. He needs seen by surgery team prior to routine scope. - CONSULT TO GENERAL SURGERY 8. LUANNE (obstructive sleep apnea) - ICD9: 327.23, ICD10: G47.33 Compliant with cpap and wakes up refreshed when used. Prescription instructions reviewed with patient as applicable. Potential red flag symptoms discussed with the patient. Reviewed appropriate action plan to take if red flag symptoms occur. Patient agreeable to treatment plan. 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 APRN.ANDRE documented in this encounterMary [facility] Telephone encounter Note * Telephone Encounter - Kathrine Logan LPN - 01/15/2024 10:58 AM EDT Rec'd covermymeds PA for pantoprazole. Requested electronic PA and response is this is covered. No PA is needed. Pharmacy notified. [facility] Miscellaneous Notes* Telephone Encounter - Kathrine Logan LPN - 01/15/2024 10:58 AM EDT Rec'd covermymeds PA for pantoprazole. Requested electronic PA and response is this is covered. No PA is needed. Pharmacy notified. documented in this encounterMary [facility] Hospital05-08-[facility]24 History of Present illness Narrative* Rosi Mcdonald - 01/15/2024 10:05 AM EDT Called patient and left a vm to return our call * Tammie Gomez RN - 01/15/2024 8:25 AM EDT COLONOSCOPY PATIENT OUTREACH Action/FYI Colonoscopy Recall Patient identified by Name and : Yes. --- OUTREACH OUTCOME ACTION: Consult- Telephone Call- Pt is overdue for screening colonoscopy. Pt needs consult due to medical history and/or medications. Please call patient and schedule appointment with General Surgery Provider. Tammie Gomez RN documented in this encounterMary [facility]05-06-[facility]24 History of Present illness Narrative* Chyna Conroy PA-C - 01/13/2024 1:30 PM EDT [facility] [place] [facility] Follow up Portions of this note were copied from the last encounter. Changes were made to appropriately reflect updated history and interval events, physical exam, data review, and medical decision making. This is a 53 year old male who presents for follow up of an at risk DD kidney transplant. KDPI 57%.PRA 0%. History of HTN, retinopathy, blind left eye, RLE weakness, CHF, bronchitis, PNA, depression, GERD, HPL, renal calculi, LUANNE and cholecystectomy. HPI: Transplant date: 03/09/21 Original Disease: DM/HTN CMV status: -/+ EBV status: +/+ Induction therapy: Thymo Ureteral Stent: Yes; Removal Date: 03/30/21 CfDNA: [place] Major events since transplantation: Having slow graft function 03/25/22: Admitted to [facility] 2/2 osteomyelitis s/p amputation of fifth toe. Wound culture +necrotizing fascitis. Discharged with COPAT vanc and ampicillin until end of April. Follow up scheduled with wound clinic, ID and Endocrinology Protocol Bx results: 3-6 mos:07/13/21: Limited sample by light microscopy without diagnostic evidence of acute Rejection. Tubular atrophy and interstitial fibrosis, mild. Arteriolar hyalinosis, focal. 1 yr: For cause biopsy rising creatinine in January 2023 missed x 2. Not compliant with labs/biopsies. Local Newspaper Stuffer: Dr. Montiel Lab Frequency: Monthly Home BP: Not checking New Complaints: No new complaints Has intermittent diarrhea since before transplant, imodium seems to help Otherwise feeling well Current Outpatient Medications Medication Sig gabapentin (NEURONTIN) 100 mg capsule Take 1 capsule by mouth daily at bedtime for 180 days. tacrolimus ER (ENVARSUS XR) 0.75 mg tablet Take 3 tablets by mouth once daily. loperamide (IMODIUM) 2 mg cap(s) Take 1 capsule by mouth four times a day as needed. buPROPion (WELLBUTRIN) 75 mg tablet Take 1 tablet by mouth once daily. buPROPion XL (WELLBUTRIN XL) 300 mg 24 hr tablet Take 1 tablet by mouth once daily. pantoprazole DR (PROTONIX) 20 mg tablet Take 1 tablet by mouth once daily. sulfamethoxazole-trimethoprim (BACTRIM) 400-80 mg per tablet Take 1 tablet by mouth every Saturday, Saturday, and Saturday. pseudoephedrine (SUDAFED) 30 mg tablet Take Four 4 (30 mg) Tablets for an erection lasting more than 2 hours. If not improved in 1 hour MUST go to ER ergocalciferol 50,000 unit capsule (VITAMIN D2, DRISDOL) Take 1 capsule by mouth one time a week. dulaglutide (TRULICITY) 0.75 mg/0.5 mL pen injector Inject 0.75 mg subcutaneously one time a week. carvedilol (COREG) 25 mg tablet Take 1 tablet by mouth twice daily. losartan (COZAAR) 25 mg tablet Take 2 tablets by mouth once daily. mycophenolate sodium DR (MYFORTIC) 180 mg EC tablet Take 2 tablets by mouth two times a day. Insulin Syringe-Needle U-100 1 mL 29 gauge x 1/2 1 Each as needed. For Intercavernal Injections zgakavvwjr-drpczdtxepug-weshicvizlu 30 MG - 1 MG - 10 MCG/ML injection (CPD) Inject 30 units into the intracavernosal region of the penis predniSONE (DELTASONE) 5 mg tablet Take 1 tablet by mouth once daily. insulin 50/50 lispro protamine-lispro units/mL (HUMALOG MIX 50-50 KWIKPEN) 100 unit/mL (50-50) pen Inject 30 Units subcutaneously daily at bedtime. insulin lispro (HUMALOG KWIKPEN INSULIN) 100 unit/mL Inject 20 units plus sliding scale with breakfast, 16 units plus SS with lunch, and 20 units + SS with dinner as directed. For snacks, inject 8 units plus sliding scale (Sliding scale: 2 units for every 40 >180 mg/dL) Insulin [place], Disposable, (BD ULTRA-FINE SANDRA PEN NEEDLE) 32 gauge x 32 Use as directed four times daily MEDICAL SUPPLY D/C oxygen Lancets lancets Test Blood Sugar 3 x/day. 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 DX: 250.E11.9. INSULIN DEP: yes glucagon 3 mg/actuation nasal spray (BAQSIMI) Use 1 [place] in the nose as needed for low blood sugar. May repeat after 15 minutes using a new device if there is no response. aspirin 81 mg chewable tablet chew and swallow 1 tablet by mouth once daily. fluticasone (FLONASE) 50 mcg/actuation nasal spray Use 2 Sprays in each nostril once daily. CPAP Initiate Auto PAP @ 5-20 cm of water with humidification. Mask (per patient preference) optional chin strap (if indicated) , filters, tubing, humidifier and lifetime supplies. >Compression Knee Highs 30-40 mm KNEE HIGH COMPRESSION STOCKINGS, 30-40 MM, I DX: EDEMA ACETAMINOPHEN ORAL Take by mouth. 1000 mg bid for pain / aches No current facility-administered medications for this visit. Current medications have been updated and reviewed with patient. ROS: No Fevers, Chills, No Nausea, vomiting, + chronic diarrhea No SOB, chest pain, pressure No edema, skin rash No dysuria, or frequency Weight steady No change appetite All other system reviews negative. Physical Exam: Last 3 Encounter BP Readings: Date: BP: 11/26/2023 140/80 09/18/2023 128/76 08/13/2023 108/60 BP 127/73 Pulse 104 Temp 36.5 C (97.7 F) (Oral) Ht 172.7 cm (5' 7.99) Wt 91.3 kg (201 lb 4.5 oz) SpO2 98% BMI 30.61 kg/m Body mass index is 30.61 kg/m . HEENT: Sclera anicteric, NC/AT Neck: no adenopathy. No elevated JVP CV: RRR no murmurs, rubs, gallops Lungs: Clear to auscultation bilaterally ABD: soft, NT, ND, no masses Allograft: Nontender, wound well healed EXT: no edema NEURO: non focal SKIN: no rash, lesion. Labs: Recent Labs 01/13/24 1331 UGLUC 4+* UBILI Negative UKET Negative UHB Negative UPH 5.5 UPROT Negative Protein/Creat Ratio Date Value 07/15/2023 0.07 mg/mg 01/02/2023 0.09 mg/mg 12/31/2022 0.07 mg/mg 09/24/2022 0.07 mg/mg 08/03/2022 0.08 mg/mg 07/05/2022 0.12 mg/mg 10/30/2021 0.2 10/19/2021 0.1 09/04/2021 0.1 07/20/2021 0.1 06/19/2021 0.1 05/30/2021 0.1 Creatinine (mg/dL) Date Value 01/10/2024 1.37 11/26/2023 1.43 09/07/2023 1.18 07/19/2023 1.50 07/15/2023 1.87 11/02/2021 1.34 10/25/2021 1.32 10/17/2021 1.27 10/06/2021 1.07 08/30/2021 1.59 BUN (mg/dL) Date Value 01/10/2024 28 11/26/2023 23 09/07/2023 17 11/02/2021 38 10/25/2021 38 10/17/2021 36 Amylase (U/L) Date Value 07/16/2018 21 Lipase (U/L) Date Value 07/16/2018 23 Tacrolimus/FK506 (ng/mL) Date Value 01/10/2024 5.1 11/26/2023 2.8 09/07/2023 5.7 07/19/2023 9.1 11/02/2021 9.5 10/25/2021 9.2 10/17/2021 3.6 10/06/2021 5.2 No results found for: EVERO No results found for: RAPA No results found for: CSA WBC (k/uL) Date Value 01/10/2024 6.51 11/26/2023 5.75 09/07/2023 6.41 11/02/2021 6.06 10/25/2021 5.60 10/17/2021 4.75 Hemoglobin (g/dL) Date Value 01/10/2024 17.6 11/26/2023 17.7 09/07/2023 17.3 11/02/2021 14.8 10/25/2021 14.5 10/17/2021 14.3 Hematocrit (%) Date Value 01/10/2024 53.7 11/26/2023 53.8 09/07/2023 52.8 11/02/2021 48.7 10/25/2021 47.4 10/17/2021 47.1 Platelet Count (k/uL) Date Value 01/10/2024 179 11/26/2023 180 09/07/2023 187 11/02/2021 263 10/25/2021 337 10/17/2021 241 Calcium (mg/dL) Date Value 11/02/2021 9.3 10/25/2021 10.0 10/17/2021 9.4 Calcium, Total (mg/dL) Date Value 01/10/2024 9.8 11/26/2023 9.7 09/07/2023 10.0 Phosphorus (mg/dL) Date Value 01/10/2024 2.9 11/26/2023 2.5 09/07/2023 2.2 11/02/2021 3.5 10/25/2021 2.1 10/17/2021 2.1 PTH, Intact (pg/mL) Date Value 01/10/2024 54 11/26/2023 40 09/07/2023 58 07/28/2021 57 07/18/2021 90 01/06/2019 209 VITAMIN D (ng/mL) Date Value 02/21/2015 14.4 BK Virus DNA Quant (IU/mL) Date Value 08/30/2021 BKV DNA not detected by PCR. 08/24/2021 BKV DNA not detected by PCR. 08/08/2021 BKV DNA not detected by PCR. CMV DNA (IU/mL) (IU/mL) Date Value 11/02/2021 165 10/25/2021 426 10/17/2021 703 No results found for: EBVDNA Assessment & Plan: 53 year old s/p Kidney Transplant: 03/09/2021 (Kidney) 1. Allograft function: - Cr fluctuates, baseline appears to be 1.3-1.6. Most recent creatinine 1.37 is stable. Pt had biopsies scheduled in January 2023 for rising creatinine, did not show for these. Creatinine has since seemed to improve. DSA testing negative, updated DSA currently in process. Last cfDNA 07/2023 reassuring at 0.26%. UA, UPC pending. Previous UPCs without proteinuria. - Low threshold to re-biopsy if creatinine up-trends, as he was off MMF d/t infections & off prednisone for ~ 1 year for unknown reasons. He has since reported to be compliant with medications. 2. Immunosuppression Regimen: - Envarsus 2.25mg (Level 5.1), MMF 500 BID, Pred 5 - FK improved with last envarsus increase. - Planning to switch cellcept to myfortic 360 BID due to ongoing diarrhea, may improve, might not. Pt wishes to try. 3. 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 Plan to increaselosartan to 50mg daily. If no improvement, discussed needing therapeutic phlebotomy. 4. Blood pressure: - Controlled on losartan and coreg. Pt not taking bps at home, instructed to do so since we are increasing his losartan for PTE. 5. Viral Screening: - Last BK negative 6. Lipids/CV risk: - Last lipid panel reviewed, at target - Continue ASA 7. Bone health/ Long-term corticosteroid use: - Ca/phos stable - Vit D low, PTH wnl - continue vit d supplement 8. ALT slightly elevated at 56, previously within range. Mild elevation likely in setting of occasional EtOH use and tylenol use. Encouraged patient to avoid those things for now given the liver enzymes are up. He agreed. Also stated his pcp is doing a liver US, discussed that is ok. Health Maintenance: - Per PCP - Hgb A1c 10.5, encouraged close follow up with pcp / endo. Pt agrees to do so. Follow up in 6 months. Z94.0 Kidney replaced by transplant (primary encounter diagnosis) This patient's labs and imaging were reviewed for maintenance of allograft function, prevention of rejection, therapeutic drug management, and monitoring and treating associated comobidities. This requires medical decision making of high complexity. Chyna Conroy PA-C documented in this encounterMary [facility]04-[facility]24 Miscellaneous Notes* Telephone Encounter - Steve Mota MA - 12/13/2023 3:11 PM EDT Requested Prescriptions Pending Prescriptions Disp Refills gabapentin (NEURONTIN) 100 mg capsule 30 capsule 5 Sig: Take 1 capsule by mouth daily at bedtime for 180 days. Date of last office visit in primary care: 11/26/2023 Date of next office visit in primary care: 12/18/2023 Please advise. Thank you. Steve Mota MA. documented in this encounterMary [facility]03-20-2024 Miscellaneous Notes* Telephone Encounter - Conchis Sheets RN - 11/27/2023 8:23 AM EDT Call to Italo Burgos to discuss low TAC level, he reports accurate, no missed doses. Instructed him to increase Envarsus dose to 2.25 mg daily. All questions answered, he stated understanding. Prescription updated; Requested Prescriptions Pending Prescriptions Disp Refills tacrolimus ER (ENVARSUS XR) 0.75 mg tablet 90 tablet 11 Sig: Take 3 tablets by mouth once daily. Please review and advise. Conchis Sheets RN documented in this encounterMary [facility]03-19-2024 History of Present illness Narrative* Xiang Perez PA-C - 11/26/2023 8:08 AM EDT CC: Patient presents with: Same Day Appointment: diarrhea x 3 weeks after eating food HPI Italo Burgos is a 52 year old male with PMH significant for uncontrolled type II DM (A1c 10.2 one month ago through Dr. Durand), status post renal transplant 03/29, who presents today for diarrhea x 3 weeks. States it came on spontaneously, which he was unable to pinpoint eating anything or anywhere differently. No recent travel, but does note he will be headed to [place] this Saturday. Denies any fevers/chills, body aches, or any other systemic symptoms. States that when he has half a sandwich from [employer] and it passes right through him. Has only tried pepto OTC with no relief in symptoms. GI history: Denies. Surgeries: Denies. Colonoscopy 5 years ago, due at this time. ROS See HPI PAST MEDICAL HISTORY Diagnosis Date Acute diastolic (congestive) heart failure (HCC) Bronchitis Chronic kidney failure, stage 4 (severe) (HCC) 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 (HCC) 12/16/2018 Depression Detached retina DM type 2, goal HbA1c < 7% ([facility]) Erectile dysfunction, unspecified erectile dysfunction type ESRD (end stage renal disease) ([facility]) GERD (gastroesophageal reflux disease) Hyperlipidemia Kidney replaced by transplant Kidney stones LUANNE (obstructive sleep apnea) PNA (pneumonia) Proliferative retinopathy 02/10/2019 PTE (post-transplant erythrocytosis) Snoring Unspecified essential hypertension Vitamin D deficiency Vitamin D deficiency PAST SURGICAL HISTORY Procedure Laterality Date AMPUTATION TOE,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 MEDICATIONS Insulin Syringe-Needle U-100 1 mL 29 gauge x 1/2 1 Each as needed. For Intercavernal Injections nnubksdpfh-cdiebopvrmpw-srjunwnsbvf 30 MG - 1 MG - 10 MCG/ML injection (CPD) Inject 30 units into the intracavernosal region of the penis buPROPion (WELLBUTRIN) 75 mg tablet Take 1 tablet by mouth once daily. buPROPion XL (WELLBUTRIN XL) 300 mg 24 hr tablet Take 1 tablet by mouth once daily. ENVARSUS XR 0.75 mg tablet take two tablets by mouth once daily pantoprazole DR (PROTONIX) 20 mg tablet Take 1 tablet by mouth once daily. sulfamethoxazole-trimethoprim (BACTRIM) 400-80 mg per tablet Take 1 tablet by mouth every Saturday, Saturday, and Saturday. pseudoephedrine (SUDAFED) 30 mg tablet Take Four 4 (30 mg) Tablets for an erection lasting more than 2 hours. If not improved in 1 hour MUST go to ER ergocalciferol 50,000 unit capsule (VITAMIN D2, DRISDOL) Take 1 capsule by mouth one time a week. mycophenolate mofetil (CELLCEPT) 250 mg capsule Take 2 capsules by mouth two times a day. predniSONE (DELTASONE) 5 mg tablet Take 1 tablet by mouth once daily. dulaglutide (TRULICITY) 0.75 mg/0.5 mL pen injector Inject 0.75 mg subcutaneously one time a week. insulin 50/50 lispro protamine-lispro units/mL (HUMALOG MIX 50-50 KWIKPEN) 100 unit/mL (50-50) pen Inject 30 Units subcutaneously daily at bedtime. gabapentin (NEURONTIN) 100 mg capsule Take 1 capsule by mouth daily at bedtime for 180 days. losartan (COZAAR) 25 mg tablet TAKE 1 TABLET BY MOUTH ONCE DAILY carvedilol (COREG) 25 mg tablet Take 1 tablet by mouth twice daily. insulin lispro (HUMALOG KWIKPEN INSULIN) 100 unit/mL Inject 20 units plus sliding scale with breakfast, 16 units plus SS with lunch, and 20 units + SS with dinner as directed. For snacks, inject 8 units plus sliding scale (Sliding scale: 2 units for every 40 >180 mg/dL) Insulin [place], Disposable, (BD ULTRA-FINE SANDRA PEN NEEDLE) 32 gauge x / Use as directed four times daily MEDICAL SUPPLY D/C oxygen Lancets lancets Test Blood Sugar 3 x/day. 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 DX: 250.E11.9. INSULIN DEP: yes glucagon 3 mg/actuation nasal spray (BAQSIMI) Use 1 [place] in the nose as needed for low blood sugar. May repeat after 15 minutes using a new device if there is no response. aspirin 81 mg chewable tablet chew and swallow 1 tablet by mouth once daily. fluticasone (FLONASE) 50 mcg/actuation nasal spray Use 2 Sprays in each nostril once daily. CPAP Initiate Auto PAP @ 5-20 cm of water with humidification. Mask (per patient preference) optional chin strap (if indicated) , filters, tubing, humidifier and lifetime supplies. >Compression Knee Highs 30-40 mm KNEE HIGH COMPRESSION STOCKINGS, 30-40 MM, I DX: EDEMA ACETAMINOPHEN ORAL Take by mouth. 1000 mg bid for pain / aches FAMILY HISTORY Problem Relation Age of Onset Colon Cancer Father 53 Diabetes Brother 52 Diabetes Sister Diabetes Mother 78 Heart Attack Mother Cancer Brother 49 lung Diabetes Son Social History Tobacco Use Smoking status: Never Smokeless tobacco: Former Types: Snuff Tobacco comments: snuff x 33 years Quit in 2020 Vaping Use Vaping Use: Never used Substance Use Topics Alcohol use: Not Currently Drug use: Not Currently Types: Marijuana PHYSICAL EXAM BP 140/80 (BP Site: Left Arm, BP Position: Sitting, BP Cuff Size: Large Adult) Pulse 104 Resp 12 Ht 172.7 cm (5' 8) Wt 95.7 kg (211 lb) SpO2 98% BMI 32.08 kg/m General Appearance: well appearing, in no acute distress, alert Psych: mood and affect broad and appropriate Skin: Skin color, texture, turgor normal for age Lungs: Lungs clear to auscultation. No wheezing, rhonchi, rales. Heart: RRR without murmur, gallop, or rubs. Abdomen: Abdomen soft, no tenderness to palpation. Bowel sounds normal. Mild- moderate distention noted. No masses, organomegaly No rigidity, guarding, or other evidence of acute abdomen demonstrated on exam Extremities: No gross deformities, significant edema, skin discoloration, clubbing or cyanosis. Neurological: Gait normal. No focal neurological deficits. Sensation grossly intact. ASSESSMENT/PLAN: 1. Diarrhea, unspecified type - ICD9: 787.91, ICD10: R19.7 (primary diagnosis) No concerning signs or evidence of acute abdomen on exam. Unclear etiology, however given duration we will check labs as well as stool testing. Trial on Imodium for symptomatic relief. Advise pushingthe fluids such as Gatorade or Pedialyte to replenish electrolytes. - C. DIFFICILE PCR - ENTERIC BACTERIAL PANEL BY PCR - CRYPTOSPORIDIUM AND GIARDIA ANTIGENS BY EIA - FECAL LACTOFERRIN/LEUKOCYTES - CBC + DIFF - COMP METABOLIC PANEL - TSH BLD - LOPERAMIDE 2 MG CAPSULE - HGB A1C 2. Mixed hyperlipidemia - ICD9: 272.2, ICD10: E78.2 - Control undetermined, due for labs - Continue current medications - Counseled on healthy diet and regular exercise - LIPID PANEL BASIC 3. Kidney transplant recipient - ICD9: V42.0, ICD10: Z94.0 CCM per transplant team 4. Diabetic polyneuropathy associated with type 2 diabetes mellitus (HCC) - ICD9: 250.60, 357.2, ICD10: E11.42 - Uncontrolled, Last A1C 10.2 per pt -Will check updated labs, continue current management per Dr. Ladarius Pickard Follow-up as planned in January Prescription instructions reviewed with patient as applicable. Potential red flag symptoms discussed with the patient. Reviewed appropriate action plan to take if red flag symptoms occur. Patient agreeable to treatment plan. Xiang Perez PA-C documented in this encounterMary [facility]03-18-2024 Miscellaneous Notes* Telephone Encounter - Anitha Munoz RN - 11/25/2023 8:22 AM EDT Patient reports for the past 3 weeks having diarrhea with urgency every time he eats. Doesn't matter what he eats. Has to go to bathroom within 5 min of eating. Pt is taking bactrim 3 x's week, and prednsone daily, since kidney transplant. Protocol recommends see provider within 24 hours. Scheduledappt. Reason for Disposition MODERATE diarrhea (e.g., 4-6 times / day more than normal) Answer Assessment - Initial Assessment Questions 1. ANTIBIOTIC: Taking bactrim once a day on Mon/Wed/Fri for past 3 years for kidney transplant. 2. ANTIBIOTIC ONSET: 3 years ago. 3. DIARRHEA SEVERITY: 2 episodes in last 24 hours. Usually 4-5 times in a day. Happens every time he eats with urgency. 4. ONSET: 3 weeks 5. BM CONSISTENCY: Mix of loose and watery. 6. VOMITING: No 7. ABDOMEN PAIN: No 8. ABDOMEN PAIN SEVERITY: If present, ask: No 9. ORAL INTAKE: Drinking plenty of fluids. No vomiting. 10. HYDRATION: No s/s of dehydration. Urinating normal. 11. EXPOSURE: No travel. No exposure. No spoiled food that he is aware of. 12. OTHER SYMPTOMS No blood in stool. No fever. 13. : N/A Protocols used: Diarrhea on [id number] documented in this encounterMary [facility]24 Miscellaneous Notes* Telephone Encounter - Monik Chinchilla Ma - 10/30/2023 7:04 PM EST Form received and faxed as requested. * Telephone Encounter - Monik Chinchilla Ma - 10/30/2023 4:28 PM EST No forms received. * Telephone Encounter - Josseline Murphy RN - 10/30/2023 3:34 PM EST Mary from [facility]-DME provider ([employer]) calls and asking if provider received fax message requesting chart notes that was sent on 10/24. Asking if chart notes can be faxed to [phone]. Called and left message for patient to call back and speak with a triage nurse regarding this and if this was patient requested. Josseline Murphy RN documented in this encounterMary [facility]an Hospital02-20-2024 Miscellaneous Notes* Telephone Encounter - Chyna Mak RN - 10/29/2023 1:11 PM EST JORDY 08/20/2023 NOV none scheduled Patient requesting refills as follows: Requested Prescriptions Pending Prescriptions Disp Refills Insulin Syringe-Needle U-100 1 mL 29 gauge x 1/2 20 Each 3 Si Each as needed. For Intercavernal Injections Please review and advise. Chyna Mak RN documented in this encounterMary [facility]an Hospital02-05-2024 Miscellaneous Notes* Telephone Encounter - Justine Boyle RN - 10/14/2023 8:43 AM EST Patient has been identified by name and date of : Yes, Justine Boyle RN Date 10/14/2023 Time 8:42 am Patient phones for refill(s): Requested Prescriptions Pending Prescriptions Disp Refills buPROPion (WELLBUTRIN) 75 mg tablet Sig: Take 1 tablet by mouth once daily. Date of last office visit in primary care: 09/18/2023 Date of next office visit in primary care: 12/18/2023 Please advise. Thank you. Justine Boyle RN. documented in this encounterMary [facility]an Hospital02-02-2024 Miscellaneous Notes* Telephone Encounter - Josseline Murphy RN - 10/11/2023 11:10 AM EST Patient calls and states that prescription was cancelled. Patient uses [facility] and not [facility]. Patient has been identified by name and date of : Patient phones for refill(s): Requested Prescriptions Pending Prescriptions Disp Refills pantoprazole DR (PROTONIX) 20 mg tablet 90 tablet 3 Sig: Take 1 tablet by mouth once daily. Date of last office visit in primary care: 09/18/2023 Date of next office visit in primary care: 12/18/2023 Please advise. Thank you. Josseline Murphy RN. documented in this encounterMary [facility] Hospital01-10-2024 History of Present illness Narrative* 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 APRN.WORKFORCE DEVELOPMENT SPECIALIST - 09/18/2023 2:48 PM EST CC: Patient presents with: Recheck: 3 month DM follow up HPI Italo Burgos is a 52 year old male who presents today for routine follow up. DIABETES MELLITUS: Mr. Burgos denies excessive thirst or increased frequency of urination, chest pain or dyspnea , numbness, tingling or pain in extremities, new or unusual visual symptoms, low sugar/hypoglycemic reactions, weight loss/gain, lightheadedness/dizziness, and bowel changes/loose stools. Follows a diabetic diet generally not very much. He is compliant with medication(s) and is tolerating med(s) without any side effects. He reports checking on a CGM schedule with sugars in the rangeof 190s. Recent HGBA1c at endocrinology was 10.7. Insulin increased. Hemoglobin A1C (%) Date Value 10/13/2022 8.6 07/11/2021 8.2 03/23/2021 7.5 Hemoglobin A1C (POCT) (%) Date Value 07/13/2022 10.6 ) Last Ophthalmology exam was over a year ago but has appointment with [facility] at the end of this month. HTN: Mr. Burgos denies headache, chest pain, palpitations, dyspnea, and peripheral edema. Patient denies any side effects of his medication(s) and is compliant with their regimen. He does check BP'saway from this office with average BP's in the 130s/70s range. Italo works out regularly 7 times per week with walking. He watches his diet for sodium, low fat and low cholesterol generally not very much. Last 3 Encounter BP Readings: Date: BP: 09/18/2023 128/76 08/13/2023 108/60 07/15/2023 116/78 Kidney transplant 2 years ago, tolerating well and sees transplant team every 6 months. LUANNE: Has not been using his cpap recently. Has been falling asleep before putting it on. Denies waking up gasping for air or daytime sleeping. Depression: Broke up with significant other a few months ago but still living in the same location. Sleep: is described as normal Alcohol use: does not drink any alcohol Drug use: No Appetite: good Suicidal Thoughts: No suicidal ideation, intent or plan Support: Comes from multiple sources including sister Counseling: Yes, at the counseling center REVIEW OF SYSTEMS See HPI PAST MEDICAL HISTORY Diagnosis Date Acute diastolic (congestive) heart failure ([facility]) Bronchitis Chronic kidney failure, stage 4 (severe) ([facility]) 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 ([facility]) 12/16/2018 Depression Detached retina DM type 2, goal HbA1c < 7% ([facility]) Erectile dysfunction, unspecified erectile dysfunction type ESRD (end stage renal disease) ([facility]) GERD (gastroesophageal reflux disease) Hyperlipidemia Kidney replaced by transplant Kidney stones LUANNE (obstructive sleep apnea) PNA (pneumonia) Proliferative retinopathy 02/10/2019 PTE (post-transplant erythrocytosis) Snoring Unspecified essential hypertension Vitamin D deficiency Vitamin D deficiency PAST SURGICAL HISTORY Procedure Laterality Date AMPUTATION TOE,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 MEDICATIONS sulfamethoxazole-trimethoprim (BACTRIM) 400-80 mg per tablet Take 1 tablet by mouth every Saturday, Saturday, and Saturday. acgwqnyamz-ivtquvbwkgmx-fdqwhmrcdqt 15 MG - 0.5 MG - 5 MCG/mL injection (CPD) Inject 56 units into the intracavernosal region of the penis buPROPion (WELLBUTRIN) 75 mg tablet TAKE 1 TABLET BY MOUTH ONCE DAILY. TAKE IN ADDITION TO THE 300MG pseudoephedrine (SUDAFED) 30 mg tablet Take Four 4 (30 mg) Tablets for an erection lasting more than 2 hours. If not improved in 1 hour MUST go to ER Insulin Syringe-Needle U-100 1 mL 29 gauge x 1/2 1 Each as needed. For Intercavernal Injections ergocalciferol 50,000 unit capsule (VITAMIN D2, DRISDOL) Take 1 capsule by mouth one time a week. mycophenolate mofetil (CELLCEPT) 250 mg capsule Take 2 capsules by mouth two times a day. predniSONE (DELTASONE) 5 mg tablet Take 1 tablet by mouth once daily. dulaglutide (TRULICITY) 0.75 mg/0.5 mL pen injector Inject 0.75 mg subcutaneously one time a week. insulin 50/50 lispro protamine-lispro units/mL (HUMALOG MIX 50-50 KWIKPEN) 100 unit/mL (50-50) pen Inject 30 Units subcutaneously daily at bedtime. pantoprazole DR (PROTONIX) 20 mg tablet Take 1 tablet by mouth once daily. gabapentin (NEURONTIN) 100 mg capsule Take 1 capsule by mouth daily at bedtime for 180 days. losartan (COZAAR) 25 mg tablet TAKE 1 TABLET BY MOUTH ONCE DAILY carvedilol (COREG) 25 mg tablet Take 1 tablet by mouth twice daily. insulin lispro (HUMALOG KWIKPEN INSULIN) 100 unit/mL Inject 20 units plus sliding scale with breakfast, 16 units plus SS with lunch, and 20 units + SS with dinner as directed. For snacks, inject 8 units plus sliding scale (Sliding scale: 2 units for every 40 >180 mg/dL) buPROPion XL (WELLBUTRIN XL) 300 mg 24 hr tablet Take 1 tablet by mouth once daily. tacrolimus ER (ENVARSUS XR) 0.75 mg tablet Take 2 tablets by mouth once daily. Insulin [place], Disposable, (BD ULTRA-FINE SANDRA PEN NEEDLE) 32 gauge x Use as directed four times daily MEDICAL SUPPLY D/C oxygen Lancets lancets Test Blood Sugar 3 x/day. 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 DX: 250.E11.9. INSULIN DEP: yes glucagon 3 mg/actuation nasal spray (BAQSIMI) Use 1 [place] in the nose as needed for low blood sugar. May repeat after 15 minutes using a new device if there is no response. aspirin 81 mg chewable tablet chew and swallow 1 tablet by mouth once daily. fluticasone (FLONASE) 50 mcg/actuation nasal spray Use 2 Sprays in each nostril once daily. CPAP Initiate Auto PAP @ 5-20 cm of water with humidification. Mask (per patient preference) optional chin strap (if indicated) , filters, tubing, humidifier and lifetime supplies. >Compression Knee Highs 30-40 mm KNEE HIGH COMPRESSION STOCKINGS, 30-40 MM, I DX: EDEMA ACETAMINOPHEN ORAL Take by mouth. 1000 mg bid for pain / aches FAMILY HISTORY Problem Relation Age of Onset Colon Cancer Father 53 Diabetes Brother 52 Diabetes Sister Diabetes Mother 78 Heart Attack Mother Cancer Brother 49 lung Diabetes Son Social History Tobacco Use Smoking status: Never Smokeless tobacco: Former Types: Snuff Tobacco comments: snuff x 33 years Quit in 2020 Vaping Use Vaping Use: Never used Substance Use Topics Alcohol use: Not Currently Drug use: Not Currently Types: Marijuana PHYSICAL EXAM BP 128/76 Pulse 96 Resp 16 Wt 90.7 kg (200 lb) SpO2 98% BMI 30.41 kg/m General Appearance: well appearing, in no acute distress, alert Pysch: mood and affect broad and appropriate Skin: Skin color, texture, turgor normal for age; Eyes: conjunctiva pink and moist, no icterus, sclera white, non-injected Lungs: Lungs clear to auscultation. No wheezing, rhonchi, rales. Heart: RRR without murmur, gallop, or rubs. No ectopy Health maintenance reviewed with patient: Hepatitis A Vaccine(1 of 2 - Risk 2-dose series) Never done Shingrix Vaccine(1 of 2) Never done Pneumococcal Vaccine(3 of 3 - PPSV23 or PCV20) due on 09/01/2021 Diabetic Foot Exam due on 07/07/2022 HbA1C due on 01/10/2023 Dilated Retinal Exam due on 02/09/2023 Covid-19 Vaccine( - season) due on 05/10/2023 Colorectal Cancer Screening due on 12/05/2023 Annual PCP Team Chronic Disease Visit due on 05/21/2024 BP Controlled (<130/80) due on 08/13/2024 Urine Albumin:Creatinine Ratio due on 09/07/2024 LDL Cholesterol due on 09/07/2024 Serum Creatinine due on 09/07/2024 DTaP,Tdap,Td Vaccine(2 - Td or Tdap) due on 05/24/2025 Influenza Vaccine Completed Hepatitis C Screening Completed HIV Screening Completed HPV Vaccine Aged Out DATA REVIEWED: Most recent labs ASSESSMENT/PLAN: 1. Type 1 diabetes mellitus on insulin therapy (HCC) - ICD9: 250.01, ICD10: E10.9 (primary diagnosis) - Uncontrolled - Continue current medications as recommended by endocrinology - Blood glucose monitoring on a continuous glucose monitoring schedule - Counseled on healthy diet and regular exercise - Discussed need for and benefit of weight loss. BMI 30.41 kg/(m^2) 2. Kidney transplant recipient - ICD9: V42.0, ICD10: Z94.0 Stable Continue with recommendations by transplant team 3. Hypertension goal BP (blood pressure) < 140/90 - ICD9: 401.9, ICD10: I10 - Controlled - Continue current medications - Recommend home blood pressure monitoring, to bring results to next visit - Encouraged sodium restriction, DASH or Mediterranean diet - Recommend regular aerobic exercise 4. Moderate episode of recurrent major depressive disorder (HCC) - ICD9: 296.32, ICD10: F33.1 Controlled at this time - Reviewed concept of neurochemical imbalance wth depression/anxiety, treatment options and benefits of counseling in combination with medication. Also reviewed benefits of sleep hygeine, diet and exercise - Instructed patient to contact office or iegtu-[id number] after-hours promptly should condition worsen or any new symptoms appear. - Counseling Center [facility] and after hours crisis line 5. LUANNE (obstructive sleep apnea) - ICD9: 327.23, ICD10: G47.33 Does not use cpap at this time, reports being asymptomatic Prescription instructions reviewed with patient as applicable. Potential red flag symptoms discussed with the patient. Reviewed appropriate action plan to take if red flag symptoms occur. Patient agreeable to treatment plan. 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 APRN.CNP documented in this encounterMary [facility]12-21-2023 Miscellaneous Notes* Telephone Encounter - Monik Chinchilla Ma - 08/29/2023 7:14 AM EST Form faxed. * Telephone Encounter - 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 APRN.CNP - 08/29/2023 6:50 AM EST Form filled out. Please fax as requested. Thank you 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 APRN.CNP * Telephone Encounter - Xiang Wilson MA - 08/27/2023 9:21 AM EST Fax received from [employer] requesting renewal for CGM and supplies. Form partially completed and placed on Delia's desk for review. Once signed, please fax to [phone]. Xiang Wilson MA documented in this encounterMary [facility] Hospital12-14-2023 Miscellaneous Notes* Telephone Encounter - Dona Kaiser RN - 08/22/2023 2:45 PM EST Called pt. Pt. States he used 20 units Rates it 5 out of 10 Not firm enough for penetration Lasted about 30 minutes Denies pain. documented in this encounterMary [facility] Hospital12-12-2023 History of Present illness Narrative* Oscar Mas PA-C - 08/20/2023 4:17 PM EST Images from the original note were not included. [facility] UROLOGY INTRACAVERNOUS TEACHING APPOINTMENT Patient : Italo Burgos 1970 52 year old Diagnosis: (N52.9) Impotence of organic origin (primary encounter diagnosis) Medications: Current Outpatient Medications Medication Sig bnsvzrwhrw-kqdzertypxmc-oxryirvpals 15 MG - 0.5 MG - 5 MCG/mL injection (CPD) Inject 20 units into the intracavernosal region of the penis, MUST Bring medication to teaching appt cold ergocalciferol 50,000 unit capsule (VITAMIN D2, DRISDOL) Take 1 capsule by mouth one time a week. mycophenolate mofetil (CELLCEPT) 250 mg capsule Take 2 capsules by mouth two times a day. predniSONE (DELTASONE) 5 mg tablet Take 1 tablet by mouth once daily. dulaglutide (TRULICITY) 0.75 mg/0.5 mL pen injector Inject 0.75 mg subcutaneously one time a week. insulin 50/50 lispro protamine-lispro units/mL (HUMALOG MIX 50-50 KWIKPEN) 100 unit/mL (50-50) pen Inject 30 Units subcutaneously daily at bedtime. pantoprazole DR (PROTONIX) 20 mg tablet Take 1 tablet by mouth once daily. gabapentin (NEURONTIN) 100 mg capsule Take 1 capsule by mouth daily at bedtime for 180 days. losartan (COZAAR) 25 mg tablet TAKE 1 TABLET BY MOUTH ONCE DAILY sulfamethoxazole-trimethoprim (BACTRIM) 400-80 mg per tablet Take 1 tablet by mouth every Saturday,Saturday,Saturday. carvedilol (COREG) 25 mg tablet Take 1 tablet by mouth twice daily. insulin lispro (HUMALOG KWIKPEN INSULIN) 100 unit/mL Inject 20 units plus sliding scale with breakfast, 16 units plus SS with lunch, and 20 units + SS with dinner as directed. For snacks, inject 8 units plus sliding scale (Sliding scale: 2 units for every 40 >180 mg/dL) buPROPion XL (WELLBUTRIN XL) 300 mg 24 hr tablet Take 1 tablet by mouth once daily. tacrolimus ER (ENVARSUS XR) 0.75 mg tablet Take 2 tablets by mouth once daily. Insulin [place], Disposable, (BD ULTRA-FINE SANDRA PEN NEEDLE) 32 gauge x Use as directed four times daily MEDICAL SUPPLY D/C oxygen Lancets lancets Test Blood Sugar 3 x/day. 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 DX: 250.E11.9. INSULIN DEP: yes glucagon 3 mg/actuation nasal spray (BAQSIMI) Use 1 [place] in the nose as needed for low blood sugar. May repeat after 15 minutes using a new device if there is no response. aspirin 81 mg chewable tablet chew and swallow 1 tablet by mouth once daily. fluticasone (FLONASE) 50 mcg/actuation nasal spray Use 2 Sprays in each nostril once daily. CPAP Initiate Auto PAP @ 5-20 cm of water with humidification. Mask (per patient preference) optional chin strap (if indicated) , filters, tubing, humidifier and lifetime supplies. >Compression Knee Highs 30-40 mm KNEE HIGH COMPRESSION STOCKINGS, 30-40 MM, I DX: EDEMA ACETAMINOPHEN ORAL Take by mouth. 1000 mg bid for pain / aches pseudoephedrine (SUDAFED) 30 mg tablet Take Four 4 (30 mg) Tablets for an erection lasting more than 2 hours. If not improved in 1 hour MUST go to ER Insulin Syringe-Needle U-100 1 mL 29 gauge x 1/2 1 Each as needed. For Intercavernal Injections buPROPion (WELLBUTRIN) 75 mg tablet Take 1 tablet by mouth once daily. The 75 is in addition to thecurrent dose of 300 mgs. No current facility-administered medications for this visit. COGNITIVE ABILITY: Alert and oriented MOTIVATION TO LEARN: Eager FAMILY SUPPORT: Unable to assess - Family not present INSTRUCTION PROVIDED TO: Patient PATIENT LEARNS BEST BY: Individual Instruction Written Instruction - Hand-outs Verbal Instruction Demonstration FACTORS AFFECTING LEARNING: None PHYSICAL LIMITATIONS AFFECTING LEARNING: None METHOD OF INSTRUCTION: Individual instruction Written instruction - handouts Verbal instruction Demonstration-Hands on Learning EDUCATION TOPIC TEACHING POINTS: Survival Skills: History of Drug and jail effects reviewed with patient. yes Discussed with patient to NEVER increase the dose without first calling.yes The Following Possible Complications were Reviewed: Bleeding yes Discomfort and resistance yes Infection yes Scarring yes Priapism yes Transient liver Abnormalities (papaverine only). yes Care of Medication discussed yes Anatomy of penis reviewed.yes Syringe and needle size reviewed, 29 gauge 1/2 inch U100. yes Sterility Emphasized:yes Syringe preparation discussed and demonstrated. yes Emphasized removing air bubbles. yes Patient practiced preparing syringe 3 times. yes Skin preparation discussed and done by patient. yes Patient injected medication. yes Patient compressed injection site 3-5 minutes. yes Usage of medication discussed: (1 time per 24 hours 2-3 times a week). yes Patient told to rotate sites. yes Patient told to keep notes on injections. yes Patient instructed to call after using x1. yes LEARNING RESPONSE PATIENT / FAMILY RESPONSE: Performs skill independently: Anatomy of penis Syringe and needle size Sterility principles Syringe preparation and injection technique FOLLOW-UP PLAN REVIEWED: yes SUPPLEMENTAL MATERIAL: Written instructions given to the patient and read in the office.yes REFERRAL (RECOMMENDATION): None Injection results: Patient to call office with results and further dosing instructions Homegoing medication: Phentolamine-Alprostadil 0.5 mg-20 mcg/mL injection 20 units I spent a total of, 60 minutes face to face with the patient. Greater than 50% of the time was spent counseling and coordinating the care based on my plan and assessment as noted. Electronically Signed KECIA Larson, MEROMULO In Department: UROLOGY documented in this encounterMary [facility]an Hospital12-05-2023 History of Present illness Narrative* Oscar Mas PA-C - 08/13/2023 4:44 PM EST Images from the original note were not included. [facility] ESTABLISHED PATIENT CLINIC NOTE Some elements copied from his previous note, which have been updated where appropriate, and all reflect current medical decision making from date of this visit. SERVICE DATE: 08/13/2023 SERVICE TIME: 4:44 PM NAME: Italo Burgos CHIEF COMPLAINT: Impotence HISTORY OF PRESENT ILLNESS: Italo Burgos is a 52 year old male an established patient following up for Impotence The patient reports he has had a kidney transplant in the past and now having increased problem getting and maintaining his erection He has failed multiple medications and we discussed treatment options He is interested in Penile Injections therapy and will schedule a teaching appointment I will send Rxs to [facility] and He will call to have it delivered for teaching Other symptoms: ED - yes LABS: Hematocrit (%) Date Value 07/19/2023 53.7 07/15/2023 51.3 03/18/2023 49.1 03/05/2023 47.4 11/02/2021 48.7 10/25/2021 47.4 10/17/2021 47.1 10/06/2021 45.3 PSA (ng/mL) Date Value 02/21/2015 0.8 Testosterone (ng/dL) Date Value 04/26/2016 548 PSA (ng/mL) Date Value 02/21/2015 0.8 Creatinine Date Value Ref Range Status 07/19/2023 1.50 (H) 0.73 - 1.22 mg/dL Final 07/15/2023 1.87 (H) 0.73 - 1.22 mg/dL Final 03/18/2023 1.50 (H) 0.73 - 1.22 mg/dL Final 03/05/2023 1.87 (H) 0.73 - 1.22 mg/dL Final MEDICATIONS: ergocalciferol 50,000 unit capsule (VITAMIN D2, DRISDOL) Take 1 capsule by mouth one time a week. mycophenolate mofetil (CELLCEPT) 250 mg capsule Take 2 capsules by mouth two times a day. predniSONE (DELTASONE) 5 mg tablet Take 1 tablet by mouth once daily. dulaglutide (TRULICITY) 0.75 mg/0.5 mL pen injector Inject 0.75 mg subcutaneously one time a week. insulin 50/50 lispro protamine-lispro units/mL (HUMALOG MIX 50-50 KWIKPEN) 100 unit/mL (50-50) pen Inject 30 Units subcutaneously daily at bedtime. pantoprazole DR (PROTONIX) 20 mg tablet Take 1 tablet by mouth once daily. buPROPion (WELLBUTRIN) 75 mg tablet Take 1 tablet by mouth once daily. The 75 is in addition to thecurrent dose of 300 mgs. gabapentin (NEURONTIN) 100 mg capsule Take 1 capsule by mouth daily at bedtime for 180 days. losartan (COZAAR) 25 mg tablet TAKE 1 TABLET BY MOUTH ONCE DAILY sulfamethoxazole-trimethoprim (BACTRIM) 400-80 mg per tablet Take 1 tablet by mouth every Saturday,Saturday,Saturday. carvedilol (COREG) 25 mg tablet Take 1 tablet by mouth twice daily. insulin lispro (HUMALOG KWIKPEN INSULIN) 100 unit/mL Inject 20 units plus sliding scale with breakfast, 16 units plus SS with lunch, and 20 units + SS with dinner as directed. For snacks, inject 8 units plus sliding scale (Sliding scale: 2 units for every 40 >180 mg/dL) buPROPion XL (WELLBUTRIN XL) 300 mg 24 hr tablet Take 1 tablet by mouth once daily. tacrolimus ER (ENVARSUS XR) 0.75 mg tablet Take 2 tablets by mouth once daily. Insulin [place], Disposable, (BD ULTRA-FINE SANDRA PEN NEEDLE) 32 gauge x 5/32 Use as directed four times daily Lancets lancets Test Blood Sugar 3 x/day. 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 DX: 250.E11.9. INSULIN DEP: yes glucagon 3 mg/actuation nasal spray (BAQSIMI) Use 1 [place] in the nose as needed for low blood sugar. May repeat after 15 minutes using a new device if there is no response. aspirin 81 mg chewable tablet chew and swallow 1 tablet by mouth once daily. fluticasone (FLONASE) 50 mcg/actuation nasal spray Use 2 Sprays in each nostril once daily. CPAP Initiate Auto PAP @ 5-20 cm of water with humidification. Mask (per patient preference) optional chin strap (if indicated) , filters, tubing, humidifier and lifetime supplies. >Compression Knee Highs 30-40 mm KNEE HIGH COMPRESSION STOCKINGS, 30-40 MM, I DX: EDEMA ACETAMINOPHEN ORAL Take by mouth. 1000 mg bid for pain / aches MEDICAL SUPPLY D/C oxygen (Patient not taking: Reported on 08/13/2023) PAST MEDICAL HISTORY: PAST MEDICAL HISTORY Diagnosis Date Acute diastolic (congestive) heart failure ([facility]) Bronchitis Chronic kidney failure, stage 4 (severe) ([facility]) 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 ([facility]) 12/16/2018 Depression Detached retina DM type 2, goal HbA1c < 7% ([facility]) Erectile dysfunction, unspecified erectile dysfunction type ESRD (end stage renal disease) ([facility]) GERD (gastroesophageal reflux disease) Hyperlipidemia Kidney replaced by transplant Kidney stones LUANNE (obstructive sleep apnea) PNA (pneumonia) Proliferative retinopathy 02/10/2019 PTE (post-transplant erythrocytosis) Snoring Unspecified essential hypertension Vitamin D deficiency Vitamin D deficiency PAST SURGICAL HISTORY: PAST SURGICAL HISTORY Procedure Laterality Date AMPUTATION TOE,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 08/08/2018 Done at [facility] by Satish Phan MD CHOLECYSTECTOMY 1998 Cholecystectomy COLONOSCOPY 12/04/2018 CYSTO W/COMPLEX REMOVAL STONE & STENT 1999 EGD 12/04/2018 PAST SURGICAL HISTORY OF Left 2012 & 2014 removal eye fluid with instillation oil FAMILY HISTORY: FAMILY HISTORY Problem Relation Age of Onset Colon Cancer Father 53 Diabetes Brother 52 Diabetes Sister Diabetes Mother 78 Heart Attack Mother Cancer Brother 49 lung Diabetes Son SOCIAL HISTORY: Social Connections: Unknown (08/24/2022) Social Connection and Isolation Panel [NHANES] Frequency of Communication with Friends and Family: Patient refused Frequency of Social Gatherings with Friends and Family: Patient refused Attends [employer] Services: Patient refused Active Member of Clubs or Organizations: Patient refused Attends Club or Organization Meetings: Patient refused Marital Status: Patient refused REVIEW OF SYSTEMS: GENERAL: No fever, chills, weight loss, or fatigue. All other systems reviewed and are negative PHYSICAL EXAMINATION: Blood pressure 108/60, pulse 98, temperature 36.8 C (98.3 F), temperature source Temporal, resp. rate 14, height 172.7 cm (5' 8), weight 90.6 kg (199 lb 12.8 oz), SpO2 97%. GENERAL: WNL nutrition, no deformities, healthy appearing PROBLEM LIST REVIEW: Yes LABS: Results for orders placed or performed in visit on 07/19/23 URINALYSIS WITH MICROSCOPIC, REFLEX CULTURE Specimen: URINE-MIDSTREAM CLEAN CATCH Result Value Ref Range Color Yellow Yellow Clarity Clear Clear Glucose, Urine 3+ (A) Negative Bilirubin, Urine Negative Negative Ketones, Urine Negative Negative Specific [place], Ur 1.024 1.005 - 1.030 Hemoglobin/Blood,Ur Negative Negative pH, Urine 6.0 <8.5 Protein, Urine Trace (A) Negative Urobilinogen 1.0 EU/dL 0.2-1.0 EU/dL Nitrites Negative Negative Leuk Esterase Negative Negative WBC, Urine 0-5 /HPF 0-5 /HPF RBC, Urine 0-2 /HPF 0-2 /HPF Bacteria Negative Negative /HPF Squamous Epithelial Cells None Seen /HPF Casts, Hyaline 0 /LPF 0 /LPF MAGNESIUM BLD Result Value Ref Range Magnesium 1.8 1.7 - 2.3 mg/dL CBC + DIFF Result Value Ref Range WBC 7.17 3.70 - 11.00 k/uL RBC 5.87 4.20 - 6.00 m/uL Hemoglobin 18.0 (H) 13.0 - 17.0 g/dL Hematocrit 53.7 (H) 39.0 - 51.0 % MCV 91.5 80.0 - 100.0 fL MCH 30.7 26.0 - 34.0 pg MCHC 33.5 30.5 - 36.0 g/dL RDW-CV 12.0 11.5 - 15.0 % Platelet Count 190 150 - 400 k/uL MPV 10.3 9.0 - 12.7 fL Neutrophils % 71.1 % Abs Neut 5.10 1.45 - 7.50 k/uL Lymphocytes % 19.9 % Abs Lymph 1.43 1.00 - 4.00 k/uL Monocytes % 7.7 % Abs [place] 0.55 <0.87 k/uL Eosinophils % 0.6 % Abs Eosin 0.04 <0.46 k/uL Basophils % 0.3 % Abs Baso <0.03 <0.11 k/uL Immature Granulocytes % 0.4 % Abs Immature Gran 0.03 <0.10 k/uL NRBC 0.0 /100 WBC Absolute nRBC <0.01 <0.01 k/uL Diff Type Auto BK VIRUS PCR,QUANT,P Result Value Ref Range BK DNA Result BK Virus DNA Not Detected by PCR. BK Virus DNA Not Detected by PCR. COMP METABOLIC PANEL Result Value Ref Range Protein, Total 7.2 6.3 - 8.0 g/dL Albumin 4.4 3.9 - 4.9 g/dL Calcium, Total 10.0 8.5 - 10.2 mg/dL Bilirubin, Total 0.8 0.2 - 1.3 mg/dL Alkaline Phosphatase 245 (H) 38 - 113 U/L AST 29 14 - 40 U/L ALT 42 10 - 54 U/L Glucose 337 (H) 74 - 99 mg/dL BUN 29 (H) 9 - 24 mg/dL Creatinine 1.50 (H) 0.73 - 1.22 mg/dL Sodium 137 136 - 144 mmol/L Potassium 5.0 3.7 - 5.1 mmol/L Chloride 100 97 - 105 mmol/L CO2 24 22 - 30 mmol/L Anion Gap 13 9 - 18 mmol/L Estimated Glomerular Filtration Rate 55 (L) >=60 mL/min/1.73m PHOSPHORUS INORGANIC Result Value Ref Range Phosphorus 2.7 2.7 - 4.8 mg/dL VITAMIN D 25 HYDROXY Result Value Ref Range Vitamin D 25 Hydroxy 22.5 (L) 31.0 - 80.0 ng/mL TACROLIMUS/FK-506 BL Result Value Ref Range Tacrolimus/FK506 9.1 5.0 - 20.0 ng/mL ALBUMIN/CREAT RATIO RND UR Result Value Ref Range Creatinine, Ur Random (UCRR) 82.4 20.0 - 300.0 mg/dL Albumin, Urine Random <12.0 mg/L Albumin/Creat Ratio <15 <30 mg/g PROCEDURES: IMAGING: IMPRESSION/PLAN: 52 year old male with 1. Impotence - ICD9: 607.84, ICD10: N52.9 > Getting teaching appointment for 60 min, > Rx sent for Bi-Mix to [facility] he will call and arrange payment and shipping > MUST bring medication for teaching appointment KECIA Larson, [place], ROMULO documented in this encounterMary [facility]12[facility] Instructions* Patient Instructions* Oscar Mas PA-C - 08/13/2023 4:41 PM EST > Schedule patient for Penile Injection Teaching appt for 6 min slot Once made I need to know so I can order Medication to be sent at the time prior to his appointment KECIA Larson, [place], ROMULO documented in this encounterMary [facility]11-11-2023 Miscellaneous Notes* Telephone Encounter - Lashae Perry RN - 07/20/2023 1:00 PM EST Called patient and LM to discuss HGB 18. Advised patient to repeat labs early next week. Discussed the possible need to do therapeutic phlebotomy. Wanted to clarify that patient is taking prescribed dose of losartan. Discussed the use of medication. Advised patient to start vit d supplement as prescribed. Advised patient to call office to confirm he received message and for any questions or concerns. Patient phones requesting refills as follows: Requested Prescriptions Pending Prescriptions Disp Refills ergocalciferol 50,000 unit capsule (VITAMIN D2, DRISDOL) 4 capsule 11 Sig: Take 1 capsule by mouth one time a week. Please review and advise. Lashae Perry RN documented in this encounterMary [facility]11-06-2023 History of Present illness Narrative* Alana Kent APRN.ANDRE - 07/15/2023 2:18 PM EST [facility] [place] [facility] Follow up Portions of this note were copied from the last encounter. Changes were made to appropriately reflect updated history and interval events, physical exam, data review, and medical decision making. This is a 52 year old male who presents for follow up of an at risk DD kidney transplant. KDPI 57%.PRA 0%. History of HTN, retinopathy, blind left eye, RLE weakness, CHF, bronchitis, PNA, depression, GERD, HPL, renal calculi, LUANNE and cholecystectomy. HPI: Transplant date: 03/09/21 Original Disease: DM/HTN CMV status: -/+ EBV status: +/+ Induction therapy: Thymo Ureteral Stent: Yes; Removal Date: 03/30/21 CfDNA: Melissa Major events since transplantation: Having slow graft function 03/25/22: Admitted to [facility] 2/2 osteomyelitis s/p amputation of fifth toe. Wound culture +necrotizing fascitis. Discharged with COPAT vanc and ampicillin until end april. Follow up scheduled with wound clinic, ID and Endocrinology Protocol Bx results: 3-6 mos:07/13/21: Limited sample by light microscopy without diagnostic evidence of acute Rejection. Tubular atrophy and interstitial fibrosis, mild. Arteriolar hyalinosis, focal. 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 buPROPion (WELLBUTRIN) 75 mg tablet Take 1 tablet by mouth once daily. The 75 is in addition to thecurrent dose of 300 mgs. gabapentin (NEURONTIN) 100 mg capsule Take 1 capsule by mouth daily at bedtime for 180 days. losartan (COZAAR) 25 mg tablet TAKE 1 TABLET BY MOUTH ONCE DAILY sulfamethoxazole-trimethoprim (BACTRIM) 400-80 mg per tablet Take 1 tablet by mouth every Saturday,Saturday,Saturday. carvedilol (COREG) 25 mg tablet Take 1 tablet by mouth twice daily. buPROPion XL (WELLBUTRIN XL) 300 mg 24 hr tablet Take 1 tablet by mouth once daily. tacrolimus ER (ENVARSUS XR) 0.75 mg tablet Take 2 tablets by mouth once daily. cholecalciferol (VITAMIN D3) 1,000 unit tab tablet Take 1 tablet by mouth q 24 HR. mycophenolate mofetil (CELLCEPT) 250 mg capsule Take 2 capsules by mouth two times a day. predniSONE (DELTASONE) 5 mg tablet Take 1 tablet by mouth once daily. dulaglutide (TRULICITY) 0.75 mg/0.5 mL pen injector Inject 0.75 mg subcutaneously one time a week. insulin 50/50 lispro protamine-lispro units/mL (HUMALOG MIX 50-50 KWIKPEN) 100 unit/mL (50-50) pen Inject 30 Units subcutaneously daily at bedtime. insulin lispro (HUMALOG KWIKPEN INSULIN) 100 unit/mL Inject 20 units plus sliding scale with breakfast, 16 units plus SS with lunch, and 20 units + SS with dinner as directed. For snacks, inject 8 units plus sliding scale (Sliding scale: 2 units for every 40 >180 mg/dL) Insulin [place], Disposable, (BD ULTRA-FINE SANDRA PEN NEEDLE) 32 gauge x 5/32 Use as directed four times daily MEDICAL SUPPLY D/C oxygen Lancets lancets Test Blood Sugar 3 x/day. 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 DX: 250.E11.9. INSULIN DEP: yes glucagon 3 mg/actuation nasal spray (BAQSIMI) Use 1 [place] in the nose as needed for low blood sugar. May repeat after 15 minutes using a new device if there is no response. aspirin 81 mg chewable tablet chew and swallow 1 tablet by mouth once daily. fluticasone (FLONASE) 50 mcg/actuation nasal spray Use 2 Sprays in each nostril once daily. CPAP Initiate Auto PAP @ 5-20 cm of water with humidification. Mask (per patient preference) optional chin strap (if indicated) , filters, tubing, humidifier and lifetime supplies. >Compression Knee Highs 30-40 mm KNEE HIGH COMPRESSION STOCKINGS, 30-40 MM, I DX: EDEMA ACETAMINOPHEN ORAL Take by mouth. 1000 mg bid for pain / aches No current facility-administered medications for this visit. Current medications have been updated and reviewed with patient. ROS: No Fevers, Chills, No Nausea, vomiting, diarrhea No SOB, chest pain, pressure No edema, skin rash No dysuria, or frequency Weight steady No change appetite All other system reviews negative. Physical Exam: Last 3 Encounter BP Readings: Date: BP: 07/15/2023 116/78 05/21/2023 132/83 02/25/2023 130/62 BP 116/78 Pulse 82 Temp 36.1 C (97 F) (Axillary) Ht 172.7 cm (5' 7.99) Wt 92.9 kg (204 lb 11.2 oz) SpO2 100% BMI 31.13 kg/m Body mass index is 31.13 kg/m . BP w/Orthostatic Vitals Date and Time Orthostatic BP Orthostatic Pulse BP Pulse BP Position BP Site BP Cuff Size 07/15/23 1414 -- -- 116/78 82 -- -- -- HEENT: Sclera anicteric, NC/AT Neck: no adenopathy. No elevated JVP CV: RRR no murmurs, rubs, gallops Lungs: Clear to auscultation bilaterally ABD: soft, NT, ND, no masses Allograft: Nontender, wound well healed EXT: no edema NEURO: non focal SKIN: no rash, lesion. Labs: Invalid input(s): SPRG, NITRATES Protein/Creat Ratio Date Value 01/02/2023 0.09 mg/mg 12/31/2022 0.07 mg/mg 09/24/2022 0.07 mg/mg 08/03/2022 0.08 mg/mg 07/05/2022 0.12 mg/mg 06/08/2022 0.07 mg/mg 10/30/2021 0.2 10/19/2021 0.1 09/04/2021 0.1 07/20/2021 0.1 06/19/2021 0.1 05/30/2021 0.1 Creatinine (mg/dL) Date Value 03/18/2023 1.50 03/05/2023 1.87 01/02/2023 2.16 12/28/2022 2.84 10/13/2022 1.61 11/02/2021 1.34 10/25/2021 1.32 10/17/2021 1.27 10/06/2021 1.07 08/30/2021 1.59 BUN (mg/dL) Date Value 03/18/2023 23 03/05/2023 32 01/02/2023 35 11/02/2021 38 10/25/2021 38 10/17/2021 36 Amylase (U/L) Date Value 07/16/2018 21 Lipase (U/L) Date Value 07/16/2018 23 Tacrolimus/FK506 (ng/mL) Date Value 03/18/2023 4.4 03/05/2023 7.1 01/02/2023 8.4 12/28/2022 9.7 11/02/2021 9.5 10/25/2021 9.2 10/17/2021 3.6 10/06/2021 5.2 No results found for: EVERO No results found for: RAPA No results found for: CSA WBC (k/uL) Date Value 03/18/2023 6.64 03/05/2023 6.01 01/02/2023 5.82 11/02/2021 6.06 10/25/2021 5.60 10/17/2021 4.75 Hemoglobin (g/dL) Date Value 03/18/2023 16.4 03/05/2023 15.8 01/02/2023 15.2 11/02/2021 14.8 10/25/2021 14.5 10/17/2021 14.3 Hematocrit (%) Date Value 03/18/2023 49.1 03/05/2023 47.4 01/02/2023 44.7 11/02/2021 48.7 10/25/2021 47.4 10/17/2021 47.1 Platelet Count (k/uL) Date Value 03/18/2023 213 03/05/2023 216 01/02/2023 199 11/02/2021 263 10/25/2021 337 10/17/2021 241 Calcium (mg/dL) Date Value 11/02/2021 9.3 10/25/2021 10.0 10/17/2021 9.4 Calcium, Total (mg/dL) Date Value 03/18/2023 10.1 03/05/2023 9.9 01/02/2023 9.9 Phosphorus (mg/dL) Date Value 03/18/2023 2.4 03/05/2023 2.7 01/02/2023 3.1 11/02/2021 3.5 10/25/2021 2.1 10/17/2021 2.1 PTH, Intact (pg/mL) Date Value 03/03/2022 66 02/13/2022 64 01/26/2022 64 07/28/2021 57 07/18/2021 90 01/06/2019 209 VITAMIN D (ng/mL) Date Value 02/21/2015 14.4 BK Virus DNA Quant (IU/mL) Date Value 08/30/2021 BKV DNA not detected by PCR. 08/24/2021 BKV DNA not detected by PCR. 08/08/2021 BKV DNA not detected by PCR. CMV DNA (IU/mL) (IU/mL) Date Value 11/02/2021 165 10/25/2021 426 10/17/2021 703 No results found for: EBVDNA Assessment & Plan: 52 year old s/p Kidney Transplant: 03/09/2021 (Kidney) 1. Allograft function: - SCr 1.5 in March. Check DSA and allosure today d/t concern for rejection given pt has been off MMFand pred for a year - UA, UPC pending 2. Immunosuppression Regimen: Envarsus 1.5. Needs updated level MMF was off d/t infection x 1 year. Resume 500/500, may increase based on lab results Pred- pt stopped taking unsure why. Resume 5 mg daily 3. Hematology: - Hx of PTE on losartan. Hgb 16.4. No leukopenia 4. Blood pressure: - Controlled on carvedilol and losartan 5. Viral Screening: - BK/CMV negative 6. Lipids/CV risk: - Controlled off medication 7. Bone health/ Long-term corticosteroid use: - Ca/phos stable - Vit D/PTH stable 8. Other: pt c/o ED, will consult urology Health Maintenance: - Per PCP Follow up in 6 months. Labs today. Advised pt to take medications as prescribed Z94.0 Kidney replaced by transplant (primary encounter diagnosis) E55.9 Vitamin D deficiency N52.9 Erectile dysfunction, unspecified erectile dysfunction type Z79.899, Z94.0 Immunosuppressive management encounter following kidney transplant D75.1 PTE (post-transplant erythrocytosis) This patient's labs and imaging were reviewed for maintenance of allograft function, prevention of rejection, therapeutic drug management, and monitoring and treating associated comobidities. This requires medical decision making of high complexity. Alana Kent APRN.ANDRE documented in this encounterMary [facility]10-[facility]-2023 Miscellaneous Notes* Telephone Encounter - Shakira Bianchi - 07/01/2023 2:49 PM EDT Patient has been identified by name and date of : No Patient phones for refill(s): Requested Prescriptions Pending Prescriptions Disp Refills pantoprazole DR (PROTONIX) 20 mg tablet 90 tablet 3 Sig: Take 1 tablet by mouth once daily. Date of last office visit in primary care: 05/21/2023 Date of next office visit in primary care: 08/20/2023 Last 2 Encounter Wt Readings: Date: Wt: 05/21/2023 93 kg (205 lb) 02/25/2023 100.7 kg (222 lb) Previous labs/tests for medication: Not applicable Please advise. Thank you. Shakira Bianchi. * Telephone Encounter - Caren Thomas - 07/01/2023 1:45 PM EDT Patient has been identified by name and date of : Yes Requested Prescriptions Pending Prescriptions Disp Refills pantoprazole DR (PROTONIX) 20 mg tablet 90 tablet 3 Sig: Take 1 tablet by mouth once daily. RX INSTRUCTIONS: Per patient, he is now using [facility]. Please send a new prescription. Patient aware RX will be sent to pharmacy. No need to notify patient. Caren Valles documented in this encounterMary [facility]09-12-[facility]23 History of Present illness Narrative* Xiang Perez PA-C - 05/21/2023 3:03 PM EDT CC: Patient presents with: F/U 3 Month HPI Italo Burgos is a 52 year old male with a complex medical history who presents today for 3 monthf/u. Last visit was with Dr. Gaston on 02/25/2023. Past medical history significant for ESRD from poor glycemic control status post kidney transplant on 03/09/2021. Medical history also includes hypertension, diabetic retinopathy with blindness left eye, RLE weakness, CHF, bronchitis, depression, ED, GERD, HLD, nephrolithiasis, LUANNE. Patient is also status post amputation of left toes. Type II DM: Dx at age 21. Pt reports history of noncompliance as a young adult. Diabetes is managed by endocrinology, Dr. Durand. Last visit with Dr. Durand was on 04/17/2023. At that time, A1c was 8.7% which is improvement from 9.2% in 01/29. Patient had lost 15 pounds from previous visit. At most recent visit with Endo, had Ozempic added once weekly. He was supposed to have a renal biopsy end of March, but was unable to make it due to not having a ride. Depression - on wellbutrin, was on 300 mg XL but then had additional 75 mg added at prior visit in 03/01. States that he is losing weight because he's not eating. Currently reports stressors as he's livingwith his ex-girlfriend right now, and reports he doesn't want to get into it. Sees Dr. Blas at the counseling center Q2 weeks. Seems to be seeing a lot of improvement. Due for f/u with transplant specialist, as last visit was in 12/30. Hyperlipidemia. Mr. Burgos had been on Atorvastatin previously but was d/c'ed 06/30 in the settingof elevated LFTs. His most recent lipid panels are: Cholesterol, Total (mg/dL) Date Value 12/28/2022 189 10/13/2022 206 07/28/2021 141 07/18/2021 145 HDL Cholesterol (mg/dL) Date Value 12/28/2022 35 10/13/2022 51 07/28/2021 52 07/18/2021 53 LDL Cholesterol (mg/dL) Date Value 12/28/2022 116 10/13/2022 131 07/28/2021 70 07/18/2021 76 Triglyceride (mg/dL) Date Value 12/28/2022 189 10/13/2022 121 07/28/2021 94 07/18/2021 78 The 10-year ASCVD risk score (Chan LIMA, et al., 2019) is: 15.1% Values used to calculate the score: Age: 52 years Sex: Male Is Non- : No Diabetic: Yes Tobacco smoker: No Systolic Blood Pressure: 132 mmHg Is BP treated: Yes HDL Cholesterol: 35 mg/dL Total Cholesterol: 189 mg/dL 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 PAST MEDICAL HISTORY Diagnosis Date Acute diastolic (congestive) heart failure (HCC) Bronchitis Chronic kidney failure, stage 4 (severe) (HCC) 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 (HCC) 12/16/2018 Depression Detached retina DM type 2, goal HbA1c < 7% (HCC) ESRD (end stage renal disease) (HCC) GERD (gastroesophageal reflux disease) Hyperlipidemia Kidney stones LUANNE (obstructive sleep apnea) PNA (pneumonia) Proliferative retinopathy 02/10/2019 Snoring Unspecified essential hypertension Vitamin D deficiency PAST SURGICAL HISTORY Procedure Laterality Date AMPUTATION TOE,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 MEDICATIONS pantoprazole DR (PROTONIX) 20 mg tablet Take 1 tablet by mouth once daily. losartan (COZAAR) 25 mg tablet TAKE 1 TABLET BY MOUTH ONCE DAILY sulfamethoxazole-trimethoprim (BACTRIM) 400-80 mg per tablet Take 1 tablet by mouth every Saturday,Saturday,Saturday. insulin glargine (LANTUS SOLOSTAR U-100 INSULIN) 100 unit/mL (3 mL) Inject 44 Units subcutaneously twice daily. buPROPion (WELLBUTRIN) 75 mg tablet Take 1 tablet by mouth once daily. The 75 is in addition to thecurrent dose of 300 mgs. gabapentin (NEURONTIN) 100 mg capsule Take 1 capsule by mouth daily at bedtime for 180 days. carvedilol (COREG) 25 mg tablet Take 1 tablet by mouth twice daily. insulin lispro (HUMALOG KWIKPEN INSULIN) 100 unit/mL Inject 20 units plus sliding scale with breakfast, 16 units plus SS with lunch, and 20 units + SS with dinner as directed. For snacks, inject 8 units plus sliding scale (Sliding scale: 2 units for every 40 >180 mg/dL) buPROPion XL (WELLBUTRIN XL) 300 mg 24 hr tablet Take 1 tablet by mouth once daily. tacrolimus ER (ENVARSUS XR) 0.75 mg tablet Take 2 tablets by mouth once daily. mycophenolate mofetil (CELLCEPT) 250 mg capsule Take 1 capsule by mouth twice daily. cholecalciferol (VITAMIN D3) 1,000 unit tab tablet Take 1 tablet by mouth q 24 HR. Insulin [place], Disposable, (BD ULTRA-FINE SANDRA PEN NEEDLE) 32 gauge x Use as directed four times daily MEDICAL SUPPLY D/C oxygen predniSONE (DELTASONE) 5 mg tablet Take 1 tablet by mouth once daily. Lancets lancets Test Blood Sugar 3 x/day. 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 DX: 250.E11.9. INSULIN DEP: yes glucagon 3 mg/actuation nasal spray (BAQSIMI) Use 1 [place] in the nose as needed for low blood sugar. May repeat after 15 minutes using a new device if there is no response. aspirin 81 mg chewable tablet chew and swallow 1 tablet by mouth once daily. fluticasone (FLONASE) 50 mcg/actuation nasal spray Use 2 Sprays in each nostril once daily. CPAP Initiate Auto PAP @ 5-20 cm of water with humidification. Mask (per patient preference) optional chin strap (if indicated) , filters, tubing, humidifier and lifetime supplies. >Compression Knee Highs 30-40 mm KNEE HIGH COMPRESSION STOCKINGS, 30-40 MM, I DX: EDEMA ACETAMINOPHEN ORAL Take by mouth. 1000 mg bid for pain / aches FAMILY HISTORY Problem Relation Age of Onset Colon Cancer Father 53 Diabetes Brother 52 Diabetes Sister Diabetes Mother 78 Heart Attack Mother Cancer Brother 49 lung Diabetes Son Social History Tobacco Use Smoking status: Never Smokeless tobacco: Current Types: Snuff Tobacco comments: snuff x 33 years Vaping Use Vaping Use: Never used Substance Use Topics Alcohol use: Not Currently Drug use: No PHYSICAL EXAM BP 132/83 Pulse 96 Resp 16 Wt 93 kg (205 lb) BMI 31.17 kg/m General Appearance: well appearing, in no acute distress, alert Psych: mood and affect broad and appropriate Skin: Skin color, texture, turgor normal for age Lungs: Lungs clear to auscultation. No wheezing, rhonchi, rales. Heart: RRR without murmur, gallop, or rubs. Extremities: Scattered bruising and microvascular hyperpigmentation changes noted bilateral lower extremities, No gross deformities, significant edema, clubbing or cyanosis. Neurological: Gait normal. No focal neurological deficits. Sensation grossly intact. ASSESSMENT/PLAN: 1. Diabetic polyneuropathy associated with type 2 diabetes mellitus (HCC) - ICD9: 250.60, 357.2, ICD10: E11.42 (primary diagnosis) - Improving control-recently started on Ozempic Continue current management as planned per Dr. Ladarius Pickard - GABAPENTIN 100 MG CAPSULE 2. Moderate episode of recurrent major depressive disorder (HCC) - ICD9: 296.32, ICD10: F33.1 Doing well on current regimen of 375 mg Wellbutrin. - BUPROPION HCL 75 MG TABLET 3. Kidney transplant recipient - ICD9: V42.0, ICD10: Z94.0 Advised prompt follow-up with transplant specialist, as he is overdue at this time. Was supposed tohave updated renal biopsy end of 03/31, due to prior findings suggestive of rejection. Patient is yet to reschedule this 4. Elevated alkaline phosphatase level - ICD9: 790.5, ICD10: R74.8 As noted on prior labs-this is the reason that statin was discontinued. We will consider further evaluation of this 5. Erectile dysfunction, unspecified erectile dysfunction type - ICD9: 607.84, ICD10: N52.9 Patient requesting medication today, however I discussed that he should bring this up to his transplant doctor to ensure no major contraindications. Patient expresses understanding and agrees. Follow-up 3 months for routine issues (sugars, kidney transplant status, depression, ED) Prescription instructions reviewed with patient as applicable. Potential red flag symptoms discussed with the patient. Reviewed appropriate action plan to take if red flag symptoms occur. Patient agreeable to treatment plan. Xiang Perez PA-C documented [facility] Miscellaneous Notes* Result Encounter Note - Olivia Maxwell APRN.CNP - 04/10/2023 1:11 PM EDT Xiang, patient has an appointment 05/28 with you, ultrasound looks stable, no DVT, no other issues. Wanted to pass along to you for review with the appointment. documented in this encounterMary [facility]23 Miscellaneous Notes* Telephone Encounter - Svetlana Manjarrez MD - 04/03/2023 2:07 PM EDT Will get RX with more refills at follow up appointment with Xiang in May * Telephone Encounter - Allyssa Camacho - 04/03/2023 12:11 PM EDT Pharmacy verified in Epic Patient has been identified by name and date of : Yes Patient aware RX will be sent to pharmacy. No need to notify patient. Pharmacy phones for refill(s): Requested Prescriptions Pending Prescriptions Disp Refills pantoprazole DR (PROTONIX) 20 mg tablet 90 tablet 1 Sig: Take 1 tablet by mouth once daily. Date of last office visit : 03/06/2019 Date of next office visit : Visit date not found Last 2 Encounter Wt Readings: Date: Wt: 02/25/2023 100.7 kg (222 lb) 12/31/2022 102.5 kg (226 lb) Please advise. Allyssa Valles documented in this encounterMary [facility] History of Present illness Narrative* Lg Link MD - 03/14/2023 6:51 AM EDT patient at outside ED, low blood glucose, SCr elevated 1.9 mg/dl, similar to previous, will repeat labs, allogen and cell free dna, may need bx, keep clinic f/u 04/10/23 Lg Link MD documented in this encounterMary [facility]23 Discharge summary Author Loi Saldana [facility] March 14, 2023 7:08am Note Date/Time March 13, 2023 10:40 pm [facility] Medical Records Department [address] [place] [address] Emergency Department Summary 03/13/23 MR#: [id number] Acct: [id number] Name: ITALO BURGOS Rep #:[id number] : 1970 52 From: Loi Saldana DO PCP: Dr. Zaida Gaston MD Status:REG E R Location: ED HPI History of Present Illness Chief Complaint: Hypoglycemia Narrative Narrative: 52-year-old male presenting with hypoglycemia. Patient is a known diabetic who sees Dr. Durand. He has had no recent medication changes for his diabetes but states his medication was changed 2 months ago. He has history of end-stage renal disease on dialysis however 2 years ago he had a renal transplant and he has 1 solitary right kidney. He states he was sitting on the couch watching TV and he felt okay and then noticed his blood sugar was dropping. He felt this and ate some candy. He states he did not pass out. He denies any chest pain orshortness of breath during the episode. EMS stated that his blood sugar was down into the 30s and gave him D10. Blood sugar was rechecked on arrival was 129. Patient denies any other complaints right now other than some generalized weakness. He states his map clerk is Dr. Montiel. He states that he been eatingand drinking normally. Making normal urine and stool and has not had any issues. He states he ate a hotdog macaroni and cheese for dinner. [facility] Medical History Acute hypoxemic respiratory failure Acute on chronic diastolic CHF (congestive heart failure) Acute respiratory failure with hypoxia ILDA (acute kidney injury) Anasarca associated with disorder of kidney Anemia of chronic renal failure, stage 4 (severe) Anxiety and depression Atherosclerotic heart disease of [place] coronary artery without angina pectoris Autonomic neuropathy Blind left eye Cellulitis and abscess of right leg Cellulitis of left lower limb Chewing tobacco nicotine dependence Chronic renal failure, stage 4 (severe) Chronic renal failure, stage 5 Chronic ulcer of 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 Congestive heart failure (CHF) COVID-19 COVID-19 Diabetes mellitus type II, uncontrolled Diabetic foot infection Diabetic foot ulcer Diabetic nephropathy Diabetic neuropathy Diabetic retinopathy Dyspnea Essential hypertension Fistula (~12/2018) Gas gangrene of foot GERD (gastroesophageal reflux disease) History of acute myocardial infarction History of left heart catheterization (LHC) (~06/26/11) HLD (hyperlipidemia) Hypertensive emergency Hypoglycemia Hypokalemia Hypoxemia Kidney failure Kidney stones Necrotizing fasciitis 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 exposed Noncompliance Obesity (BMI 30-39.9) Pneumonia Problem with dialysis access Pulmonary edema Respiratory failure Retention, urine Right leg pain 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 Vision problems Home Medications pantoprazole 20 mg tablet,delayed release (Protonix) 20 mg PO DAILY gerd 09/18/21 [History Last Taken 11/01/22 07:00] prednisone 5 mg tablet 5 mg PO DAILY steroid 09/18/21 [History Last Taken 11/01/22 07:00] tacrolimus 1 mg tablet,extended release 24 hr (Envarsus XR) 2 mg PO DAILY rejection med 09/18/21 [History Last Taken 03/14/23] carvedilol 25 mg tablet 25 mg PO BID HEART 12/26/21 [History Last Taken 11/01/22 07:00] cholecalciferol (vitamin D3) 25 mcg (1,000 unit) capsule (Vitamin D3) 50 mcg PO FR SUPPLEMENT' 12/26/21 [History Last Taken 10/26/22] losartan 25 mg tablet 25 mg PO DAILY BP 09/05/22 [History Last Taken 11/01/22 07:00] sulfamethoxazole 400 mg-trimethoprim 80 mg tablet 1 tablet PO DAILY INFECTION 09/05/22 [History Last Taken 11/01/22 07:00] acetaminophen 500 mg tablet 1,000 mg PO Q4H PRN Pain 11/01/22 [History Last Taken 10/31/22] aspirin 81 mg chewable tablet 81 mg PO DAILY HEALTH 11/01/22 [History Last Taken 11/01/22 07:00] bupropion HCl 300 mg 24 hr tablet, extended release 375 mg PO DAILY MOOD 11/01/22 [History Last Taken 03/13/23] gabapentin 100 mg capsule 100 mg PO QHS NERVE PAIN 11/01/22 [History Last Taken 10/31/22] docusate sodium 100 mg capsule (Colace) 100 mg PO DAILY PRN constipation 01/14/23 [History Last Taken Unknown] atenolol 100 mg tablet 100 mg PO DAILY 03/14/23 [History Last Taken Unknown] insulin lispro protamine-lispro 100 unit/mL (50-50) subcutaneous pen (Humalog Mix 50-50 KwikPen) 30 unit subcut DAILY 03/14/23 [History Last Taken 03/14/23] insulin lispro protamine-lispro 100 unit/mL (50-50) subcutaneous pen (Humalog Mix 50-50 KwikPen) 40 unit subcut 0800,1800 03/14/23 [History Last Taken 03/14/23] Allergy/AdvReac Type Severity Reaction Status Date / Time No Known Allergies Allergy Verified 03/13/23 22:26 Family History Mother Heart disease Hypertension Father Cancer Brother Cancer Diabetes Sister Diabetes Other Alcohol abuse Depression H/O transfusion of whole blood Kidney disease Surgical History History of appendectomy History of arteriovenostomy for renal dialysis (~08/2018) History of artificial lens replacement History of cholecystectomy History of eye surgery Kidney replaced by transplant Renal transplant recipient Status post insertion of dialysis catheter (~08/2018) Social History household members: spouse Smoking Status: Never smoker second hand exposure: No alcohol intake: never substance use type: does not use caffeine: No what type of physical activity do you participate in: none ROS ROS ED Constitutional Constitutional ED: Denies chills, fever(s) or sweats Eyes Eyes: Denies blurry vision or change in vision ENT ENT ED: Denies ear pain or sore throat Cardiovascular Cardiovascular: Denies chest pain, palpitations or racing heartbeat Respiratory/Chest Respiratory/Chest: Denies cough, dyspnea or sputum Gastrointestinal Gastrointestinal: Denies abdominal pain, constipation, diarrhea, nausea or vomiting Genitourinary Genitourinary ED: Denies dysuria, hematuria or urinary frequency Musculoskeletal Musculoskeletal: Denies arthralgias, myalgias or neck pain Integumentary Denies abscess, Abrasions or rash Neurologic Neurologic: Denies headache(s), paresthesias or weakness Psychiatric Psychiatric: Denies anxiety, depression, suicidal ideation or suicidal thoughts Endocrine Endocrinology: Denies polydipsia or polyuria EXAM Physical Exam Const Vital Signs: 03/13/23 22:22 03/13/23 22:28 03/13/23 23:34 Temperature 95.6 F L Temperature Source Temporal Pulse Rate 70 70 Respiratory Rate 19 H 15 Respiratory Effort Normal Non-Labored Blood Pressure 180/89 H 143/73 H Blood Pressure Mean 119 96 Pulse Ox 99 97 Oxygen Delivery Method Room Air Room Air Oxygen Flow Rate (L/min) 03/14/23 01:00 03/14/23 03:49 Temperature Temperature Source Pulse Rate 75 69 Respiratory Rate 17 181 H Respiratory Effort Blood Pressure 119/67 130/74 H Blood Pressure Mean 84 92 Pulse Ox 97 Oxygen Delivery Method Room Air Room Air Oxygen Flow Rate (L/min) 97 General Appearance ED: NAD; Negative for pallor HEENT Reports moist mucous membranes Eyes PERRL and EOMs intact bilaterally General Eye ED: Negative for pale conjunctiva Chest Wall inspection of chest normal Resp normal respiratory effort and clear to auscultation bilaterally Auscultation: Negative for rales, rhonchi or wheezes Cardio regular rate and regular rhythm GI normal to inspection, nondistended, normoactive bowel sounds Extremity normal to inspection Neuro oriented x3 and CN's II-XII intact bilaterally Sensorium / Orientation: alert Motor Exam: strength 5/5 throughout Psych mental status grossly normal Skin no rashes or lesions noted and no wounds General Skin Exam: Negative for jaundice or pallor MDM MDM MDM Narrative Medical decision making narrative: Patient presenting with hypoglycemia. He states he has not had any new med changes. He states that typically he can eat candy or control his blood sugar by eating something but this was not helping today. He had received D10 by EMS and has remained awake since. CBC was obtained to assess white blood cell count, hemoglobin, platelets, differential. CMP to assess renal function, liverfunction, electrolytes, glucose, anion gap. Urinalysis to assess for UTI. I did obtain an EKG, chest x- ray, high-sensitivity troponin due to the patient being diaphoretic and mildly altered on arrival. EKG shows a normal sinus rhythm with a ventricular rate of 68 bpm with evidence of LVH on my interpretation. There are PVCs as well. High-sensitivity troponin is 9. CBC does not show a leukocytosis. Hemoglobin hematocrit are stable. Platelets are normal. CMP shows fairly normal liver function. Creatinine is elevated at 1.92and GFR is 39. Patient initially given a liter of normal saline. It does look like he has history of CHF so I will start him heart rate 150 cc/h. Urinalysis shows positive nitrites, 0-5, WBC, no squamous epithelial cells, small bacteria. Chest x-ray on my interpretation shows no acute process. Radiologist interprets this and agrees. Patient's blood sugars today have continued to go down. He was initially given D10 before arrival and his blood pressure went from 1 29-72 while he was here. After eating it is gone up to as high as 140 but is now dropped down to 129. Given the acute kidney injury and continuously dropping blood sugars discussed with hospitalist for admission however this feltto not require admission per the hospitalist. I did speak with Dr. Montiel from nephrology who had seen him in the past and states she typically will manage hiscare in the hospital. She states she follows with the transplant team at [facility] typically on an outpatient basis. She did feel would be reasonable to observe him given the low blood sugars and acute kidney injury. We will discuss this case with the transplant team given he has 1 kidney. Discussed with the transplant team and they recommended weekly lab work as an outpatient. He has an appointment April 10 at 2:20 PM. I spoke with Dr. Link. He stated that he wanted to have some special lab work done at [facility] on Saturday that has to be done there because it specialized in the only place where they can do it. After this he can get his blood work drawn at any [facility] facility for the next 4 weeks. He recommended following up with endocrinology on an outpatient basis today to see what medications he would like to adjust or change. Patient was amenable to this. He has been here most of the evening getting IV fluids and he feels well. His sugars have not dropped again. Return precautions are discussed at length. Impression: 1. Acute on chronic kidney disease 2. Hypoglycemia Lab Data Attestation: I reviewed the patient's lab results. Labs: Laboratory Results - last 24 hr 03/13/23 03/13/23 03/13/23 03:14 22:32 22:36 WBC 7.3 RBC 5.10 Hgb 15.9 Hct 47.5 MCV 93.1 MCH 31.2 MCHC 33.5 RDW Std Deviation 43.1 RDW Coeff of Tomy 12.5 Plt Count 205 MPV 9.8 Immature Gran % (Auto) 0.300 Neut % (Auto) 67.1 Lymph % (Auto) 22.5 [place] % (Auto) 9.0 Eos % (Auto) 0.8 Baso % (Auto) 0.3 Absolute Neuts (auto) 4.9 Absolute Lymphs (auto) 1.65 Nucleated RBC % 0 Sodium 137 Potassium 4.1 Chloride 107 Carbon Dioxide 21.0 Anion Gap 9 BUN 28 H Creatinine 1.92 H Estim Creat Clear Calc 42.55 Est GFR (MDRD) Af Amer 47 L Est GFR (MDRD) Non-Af 39 L BUN/Creatinine Ratio 14.6 Glucose 186 H Calcium 9.1 Total Bilirubin 0.50 AST 33 ALT 53 Alkaline Phosphatase 213 H Troponin I High Sens 9 Total Protein 7.4 Albumin 3.9 Globulin 3.5 Albumin/Globulin Ratio 1.1 Urine Color Yellow Urine Clarity Clear Urine pH 5.0 Ur Specific [place] 1.020 Urine Protein 30 H Urine Glucose (UA) 1000 H Urine Ketones Negative Urine Occult Blood 10 H Urine Nitrite Positive H Urine Bilirubin Negative Urine Urobilinogen 1 H Ur Leukocyte Esterase 25 H Urine RBC 0 SEEN Urine WBC 0-5 SEEN Ur Squamous Epith Cells 0 SEEN Urine Bacteria RARE Urine Mucus 0 SEEN POC Glucose 129 H 03/13/23 03/13/23 03/14/23 23:00 23:38 00:27 WBC RBC Hgb Hct MCV MCH MCHC RDW Std Deviation RDW Coeff of Tomy Plt Count MPV Immature Gran % (Auto) Neut % (Auto) Lymph % (Auto) [place] % (Auto) Eos % (Auto) Baso % (Auto) Absolute Neuts (auto) Absolute Lymphs (auto) Nucleated RBC % Sodium Potassium Chloride Carbon Dioxide Anion Gap BUN Creatinine Estim Creat Clear Calc Est GFR (MDRD) Af Amer Est GFR (MDRD) Non-Af BUN/Creatinine Ratio Glucose Calcium Total Bilirubin AST ALT Alkaline Phosphatase Troponin I High Sens Total Protein Albumin Globulin Albumin/Globulin Ratio Urine Color Urine Clarity Urine pH Ur Specific [place] Urine Protein Urine Glucose (UA) Urine Ketones Urine Occult Blood Urine Nitrite Urine Bilirubin Urine Urobilinogen Ur Leukocyte Esterase Urine RBC Urine WBC Ur Squamous Epith Cells Urine Bacteria Urine Mucus POC Glucose 120 H 103 72 L 03/14/23 03/14/23 03/14/23 01:19 02:32 03:06 WBC RBC Hgb Hct MCV MCH MCHC RDW Std Deviation RDW Coeff of Tomy Plt Count MPV Immature Gran % (Auto) Neut % (Auto) Lymph % (Auto) [place] % (Auto) Eos % (Auto) Baso % (Auto) Absolute Neuts (auto) Absolute Lymphs (auto) Nucleated RBC % Sodium Potassium Chloride Carbon Dioxide Anion Gap BUN Creatinine Estim Creat Clear Calc Est GFR (MDRD) Af Amer Est GFR (MDRD) Non-Af BUN/Creatinine Ratio Glucose Calcium Total Bilirubin AST ALT Alkaline Phosphatase Troponin I High Sens Total Protein Albumin Globulin Albumin/Globulin Ratio Urine Color Urine Clarity Urine pH Ur Specific [place] Urine Protein Urine Glucose (UA) Urine Ketones Urine Occult Blood Urine Nitrite Urine Bilirubin Urine Urobilinogen Ur Leukocyte Esterase Urine RBC Urine WBC Ur Squamous Epith Cells Urine Bacteria Urine Mucus POC Glucose 117 H 134 H 131 H 03/14/23 03/14/23 03:47 04:28 WBC RBC Hgb Hct MCV MCH MCHC RDW Std Deviation RDW Coeff of Tomy Plt Count MPV Immature Gran % (Auto) Neut % (Auto) Lymph % (Auto) [place] % (Auto) Eos % (Auto) Baso % (Auto) Absolute Neuts (auto) Absolute Lymphs (auto) Nucleated RBC % Sodium Potassium Chloride Carbon Dioxide Anion Gap BUN Creatinine Estim Creat Clear Calc Est GFR (MDRD) Af Amer Est GFR (MDRD) Non-Af BUN/Creatinine Ratio Glucose Calcium Total Bilirubin AST ALT Alkaline Phosphatase Troponin I High Sens Total Protein Albumin Globulin Albumin/Globulin Ratio Urine Color Urine Clarity Urine pH Ur Specific [place] Urine Protein Urine Glucose (UA) Urine Ketones Urine Occult Blood Urine Nitrite Urine Bilirubin Urine Urobilinogen Ur Leukocyte Esterase Urine RBC Urine WBC Ur Squamous Epith Cells Urine Bacteria Urine Mucus POC Glucose 140 H 129 H Radiography Diagnostic Testing: Clinical Impression(s) from Imaging Studies Chest X-Ray 03/13/23 22:46 IMPRESSION: Normal x-ray examination of the chest. Electronically Signed: Karl Wilson MD at 23:05 EDT Reading Location ID and State: [address] [place] [address] Tel , Service support , Discharge Plan Triage Chief Complaint: Hypoglycemia ED Provider: Loi Saldana Dx/Rx/DC Orders Instructions: ED Chronic Kidney Disease (CKD), ED Diabetic Insulin Reaction Prescriptions: No Action losartan 25 mg tablet 25 mg PO DAILY Patient Comments: TAKE 1 TABLET BY MOUTHAONCE DAILYE sulfamethoxazole-trimethoprim 400-80 mg tablet 1 tablet PO DAILY Patient Comments: TAKE 1 TABLET BY MOUTHTONCE DAILY prednisone 5 mg Tablet 5 mg PO DAILY Hold Instructions: pantoprazole [Protonix] 20 mg Tablet,Delayed Release (Dr/Ec) 20 mg PO DAILY Envarsus XR 1 mg tablet extended release 24 hr 2 mg PO DAILY docusate sodium [Colace] 100 mg capsule 100 mg PO DAILY PRN (Reason: constipation) carvedilol 25 mg Tablet 25 mg PO BID Hold Instructions: cholecalciferol (vitamin D3) [Vitamin D3] 25 mcg (1,000 unit) Capsule 50 mcg PO FR acetaminophen 500 mg Tablet 1,000 mg PO Q4H PRN (Reason: Pain) aspirin [Aspirin Low-Strength] 81 mg Tablet,Chewable 81 mg PO DAILY Hold Instructions: Ordered gabapentin 100 mg capsule 100 mg PO QHS Patient Comments: TAKE 1 CAPSULE BY MOUTH AT BEDTIME bupropion HCl 300 mg tablet extended release 24 hr 375 mg PO DAILY Patient Comments: TAKE 1 TABLET BY MOUTH ONCE DAILY Humalog Mix 50-50 KwikPen 100 unit/mL (50-50) insulin pen 30 unit subcut DAILY atenolol 100 mg tablet 100 mg PO DAILY Humalog Mix 50-50 KwikPen 100 unit/mL (50-50) insulin pen 40 unit subcut 0800,1800 Primary Care Provider: Zaida Gaston Referrals: Zaida Gaston MD [Primary Care Provider] - Disposition Disposition: Home, Self Care What to do if you have Problems For any increased pain, shortness of breath, bleeding, nausea or vomiting, chestpain, or any unexpected problems, contact your Primary Care Provider. Call [facility] ([phone]) or report to the closest Emergency Room. Call 911 if necessary. 03/14/23 0708 <Electronically signed by Loi Saldana DO> Cosigner Signature (if applicable): CC: Dr. Zaida Gaston MD ~ Signed [facility] Work Phone: [phone] 623-709506-19-2023 History of Present illness Narrative* Zaida Gaston MD - 02/25/2023 12:10 PM EDT Reason for Visit Patient presents with: F/U Diabetes 3 Month: diabetes Italo Burgos is a 52 year old male who presents here today for Above Complaints.. Health Maintenance HEPATITIS A(1 of 2 - Risk 2-dose series) BP CONTROLLED (<130/80) SHINGRIX VACCINE(1 of 2) COVID-19 VACCINE(4 - Booster for Moderna series) DIABETIC FOOT EXAM PNEUMOCOCCAL(3 - PPSV23 if available, else PCV20) HBA1C DILATED RETINAL EXAM HPI Italo is a very pleasant 50-year-old gentleman. kidney transplant on March 09, 2021 end-stage kidney disease from poor diabetic control. He has a history of HTN, Diabetes Mellitus with retinopathy, blind left eye, RLE weakness, CHF, bronchitis, depression, ED, GERD, HPL, renal calculi in the new kidney, LUANNE. S/p amputation of all the left toes. Diabetes Mellitus: He notes his sugars are well controlled Seeing Dr Durand. Patient is not on insulin pump yet as he does not want the pump. He is currently on 44 units of insulin in the evening and some in the morning. Sugars are not optimal as he is a little stressed out. Going through some ups and downs right now. Taking a break in relationship from his current partnerof 12 years. Staying with a friend, is not very happy but there seems to be no other way to go here. Is a little depressed and notes the wellbutrin is not working as well. Some days he is good and other days he feels really down. Patient also notes that when he eats it goes straight through him It hits him so hard that he has to use the rest room quickly . Any kind of food does this to him Patient notes that his right leg is hurting him, been hurting for a while , started after his surgery last year for toe amputation. Patient has a wart on the left ring finger, that he would like to use to get frozen. No problem-specific Assessment & Plan notes found for this encounter. PAST MEDICAL HISTORY Diagnosis Date Acute diastolic (congestive) heart failure ([facility]) Bronchitis Chronic kidney failure, stage 4 (severe) ([facility]) 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 ([facility]) 12/16/2018 Depression Detached retina DM type 2, goal HbA1c < 7% ([facility]) ESRD (end stage renal disease) ([facility]) GERD (gastroesophageal reflux disease) Hyperlipidemia Kidney stones LUANNE (obstructive sleep apnea) PNA (pneumonia) Proliferative retinopathy 02/10/2019 Snoring Unspecified essential hypertension Vitamin D deficiency PAST SURGICAL HISTORY Procedure Laterality Date AMPUTATION TOE,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 08/08/2018 Done at [facility] by Satish Phan MD CHOLECYSTECTOMY 1998 Cholecystectomy COLONOSCOPY 12/04/2018 CYSTO W/COMPLEX REMOVAL STONE & STENT 1999 EGD 12/04/2018 PAST SURGICAL HISTORY OF Left 2012 & 2014 removal eye fluid with instillation oil FAMILY HISTORY Problem Relation Age of Onset Colon Cancer Father 53 Diabetes Brother 52 Diabetes Sister Diabetes Mother 78 Heart Attack Mother Cancer Brother 49 lung Diabetes Son Social History Tobacco Use Smoking status: Never Smokeless tobacco: Current Types: Snuff Tobacco comments: snuff x 33 years Vaping Use Vaping Use: Never used Substance Use Topics Alcohol use: Not Currently Drug use: No Past medical history, appointments, medications, allergies reviewed. Pertinent Lab/Diagnostic Studies are reviewed and discussed today Current Outpatient Medications: gabapentin (NEURONTIN) 100 mg capsule carvedilol (COREG) 25 mg tablet insulin glargine (LANTUS SOLOSTAR U-100 INSULIN) 100 unit/mL (3 mL) insulin lispro (HUMALOG KWIKPEN INSULIN) 100 unit/mL buPROPion XL (WELLBUTRIN XL) 300 mg 24 hr tablet tacrolimus ER (ENVARSUS XR) 0.75 mg tablet mycophenolate mofetil (CELLCEPT) [address] (PROTONIX) 20 mg tablet cholecalciferol (VITAMIN D3) 1,000 unit tab tablet Insulin [place], Disposable, (BD ULTRA-FINE SANDRA PEN NEEDLE) 32 gauge x 5/32 sulfamethoxazole-trimethoprim (BACTRIM) 400-80 mg per tablet losartan (COZAAR) 25 mg tablet MEDICAL SUPPLY predniSONE (DELTASONE) 5 mg tablet Lancets lancets Blood-Glucose Meter monitoring kit blood sugar diagnostic (BLOOD GLUCOSE TEST) test strip blood sugar diagnostic (BLOOD GLUCOSE TEST) test strip glucagon 3 mg/actuation nasal spray (BAQSIMI) aspirin 81 mg chewable tablet fluticasone (FLONASE) 50 mcg/actuation nasal spray CPAP >Compression Knee Highs 30-40 mm ACETAMINOPHEN ORAL Review of Systems CONSTITUTIONAL: No [...] or numbness of concern. Physical Exam BP 130/62 (BP Site: Left Arm, BP Position: Sitting, BP Cuff Size: Large Adult) Pulse 85 Temp 36.9 C (98.5 F) Resp 12 Ht 172.7 cm (5' 8) Wt 100.7 kg (222 lb) SpO2 96% BMI 33.75 kg/m General appearance: Well appearing, alert, in no [...] murmur, gallop, or rubs. Extremities: No deformities, edema, skin discoloration, clubbing or cyanosis. Good capillary refill. ASSESSMENT/PLAN: 1. Hypertension goal BP (blood pressure) < 140/90 - ICD9: 401.9, ICD10: I10 (primary diagnosis) - Controlled - Recommend home blood pressure monitoring, to bring results to next visit - Encouraged sodium restriction, DASH or Mediterranean diet - Recommend regular aerobic exercise 2. Other hyperlipidemia - ICD9: 272.4, ICD10: E78.49 3. Type 1 diabetes mellitus on insulin therapy (HCC) - ICD9: 250.01, ICD10: E10.9 - Controlled - Continue current medications 4. Moderate episode of recurrent major depressive disorder (HCC) - ICD9: 296.32, ICD10: F33.1 - BUPROPION HCL 75 MG TABLET 5. Diarrhea, unspecified type - ICD9: 787.91, ICD10: R19.7 - CONSULT TO GASTROENTEROLOGY 6. Pain of right lower extremity - ICD9: 729.5, ICD10: M79.604 - US LEG VEIN DVT UNL VAS LAB 7. Left leg claudication (HCC) - ICD9: 443.9, ICD10: I73.9 - PVR LEG W/EXC ROLY VAS LAB 8. Viral wart on finger - ICD9: 078.10, ICD10: B07.9 The patient has a viral wart on the finger which I used liquid nitrogen and froze it 3 times. Zaida Gaston MD documented in this encounterMary [facility]23 Miscellaneous Notes* Telephone Encounter - Danni Barnes RN - 01/16/2023 5:07 PM EDT Called patient to confirm renal bx. Patient unable to make appointment d/t no ride. Asked us to reschedule. Message sent to [facility]. Danni Barnes RN documented in this encounterMary Rutan Hospital04-26-2023 Miscellaneous Notes* Telephone Encounter - Juvencio Haji RN - 01/02/2023 2:33 PM EDT Call placed to patient RE repeat labwork. Informed that creatinine is down to 2.16 from 2.8, but glucose is 392. Confirmed labwork is fasting. Encouraged patient to continue hydrating well and to contact local Load Mixer for management. States saw provider last month. During encounter, blood glucose reading 192. A1c from 10/13/22 at 8.6. Patient recently recovered from diabetic foot wound requiring wound clinic. All questions answered. Informed patient will follow up results of AlloSure and DSA. Patient stated understanding. All questions answered. Juvencio Haji RN documented in this encounterMary Rutan Hospital04-21-2023 History of Present illness Narrative* Chelsea Ryan MD - 12/28/2022 10:07 AM EDT [facility] [facility] Follow up Portions of this note were copied from the last encounter. Changes were made to appropriately reflect updated history and interval events, physical exam, data review, and medical decision making. This is a 52 year old male who presents for follow up of an at risk DD kidney transplant. KDPI 57%.PRA 0%. History of HTN, retinopathy, blind left eye, RLE weakness, CHF, bronchitis, PNA, depression, GERD, HPL, renal calculi, LUANNE and cholecystectomy. HPI: Transplant date: 03/09/21 Original Disease: DM/HTN CMV status: -/+ EBV status: +/+ Induction therapy: Thymo Ureteral Stent: Yes; Removal Date: 03/30/21 CfDNA: [place] Major events since transplantation: Having slow graft function 03/25/22: Admitted to [facility] 2/2 osteomyelitis s/p amputation of fifth toe. Wound culture +necrotizing fascitis. Discharged with COPAT vanc and ampicillin until end of April. Follow up scheduled with wound clinic, ID and Endocrinology Protocol Bx results: 3-6 mos:07/13/21: Limited sample by light microscopy without diagnostic evidence of acute Rejection. Tubular atrophy and interstitial fibrosis, mild. Arteriolar hyalinosis, focal. 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 Montiel Lab Frequency: Monthly Home BP: 130-140/70-80 New Complaints: 1 year, 9 month visit No compliants Just got back form trip to [place] 3 weeks ago (out of town x 1 wk) Creatinine up, discussed DSA, cf-DNA, possible biopsy Discussed sunscreen and sun exposure precautions Current Outpatient Medications Medication Sig gabapentin (NEURONTIN) 100 mg capsule Take 1 capsule by mouth daily at bedtime for 180 days. carvedilol (COREG) 25 mg tablet Take 1 tablet by mouth twice daily. insulin glargine (LANTUS SOLOSTAR U-100 INSULIN) 100 unit/mL (3 mL) Inject 44 Units subcutaneously every morning. insulin lispro (HUMALOG KWIKPEN INSULIN) 100 unit/mL Inject 20 units plus sliding scale with breakfast, 16 units plus SS with lunch, and 20 units + SS with dinner as directed. For snacks, inject 8 units plus sliding scale (Sliding scale: 2 units for every 40 >180 mg/dL) buPROPion XL (WELLBUTRIN XL) 300 mg 24 hr tablet Take 1 tablet by mouth once daily. tacrolimus ER (ENVARSUS XR) 0.75 mg tablet Take 2 tablets by mouth once daily. mycophenolate mofetil (CELLCEPT) 250 mg capsule Take 1 capsule by mouth twice daily. pantoprazole DR (PROTONIX) 20 mg tablet Take 1 tablet by mouth once daily. cholecalciferol (VITAMIN D3) 1,000 unit tab tablet Take 1 tablet by mouth q 24 HR. Insulin [place], Disposable, (BD ULTRA-FINE SANDRA PEN NEEDLE) 32 gauge x 5/32 Use as directed four times daily sulfamethoxazole-trimethoprim (BACTRIM) 400-80 mg per tablet Take 1 tablet by mouth once daily. losartan (COZAAR) 25 mg tablet Take 1 tablet by mouth once daily. MEDICAL SUPPLY D/C oxygen predniSONE (DELTASONE) 5 mg tablet Take 1 tablet by mouth once daily. Lancets lancets Test Blood Sugar 3 x/day. 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 DX: 250.E11.9. INSULIN DEP: yes glucagon 3 mg/actuation nasal spray (BAQSIMI) Use 1 [place] in the nose as needed for low blood sugar. May repeat after 15 minutes using a new device if there is no response. aspirin 81 mg chewable tablet chew and swallow 1 tablet by mouth once daily. fluticasone (FLONASE) 50 mcg/actuation nasal spray Use 2 Sprays in each nostril once daily. CPAP Initiate Auto PAP @ 5-20 cm of water with humidification. Mask (per patient preference) optional chin strap (if indicated) , filters, tubing, humidifier and lifetime supplies. >Compression Knee Highs 30-40 mm KNEE HIGH COMPRESSION STOCKINGS, 30-40 MM, I DX: EDEMA ACETAMINOPHEN ORAL Take by mouth. 1000 mg bid for pain / aches No current facility-administered medications for this visit. Medication updated and reviewed with patient ROS: No Fevers, Chills, No Nausea, vomiting, diarrhea No SOB, chest pain, pressure No edema, skin rash No dysuria, or frequency Weight steady No change appetite All other system reviews negative. Hospitalized since last follow up: Yes: Date:Oct 2022 x 4 days for left toe amputation at [facility] Working for income: No; Karnofsky Index Scale: 80 - Normal activity with effort: some signs or symptoms of disease. 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 Pt returns for routine follow up visit, last office follow up on 09/24/22 In the interim, treated by local middleware consultant in [facility] for diabetic foot infection- completed abx per pt in Oct 2022 Routine labs done prior to appt show creat of 2.8 from baseline of 1.6 (as recent as Oct 2022) Pt reports missing a couple of doses of anti-rejection meds No LE edema, denies symptoms Last 3 Encounter BP Readings: Date: BP: 12/31/2022 145/65 11/23/2022 118/72 10/04/2022 103/64 PE: BP 145/65 (BP Site: Left Arm, BP Position: Sitting, BP Cuff Size: Large Adult) Pulse 96 Temp 37.1 C (98.7 F) (Temporal) Ht 172.7 cm (5' 8) Wt 102.5 kg (226 lb) SpO2 96% BMI 34.36 kg/m Body mass index is 34.36 kg/m . BP w/Orthostatic Vitals Date and Time Orthostatic BP Orthostatic Pulse BP Pulse BP Position BP Site BP Cuff Size 12/31/22 1529 -- -- 145/65 96 Sitting Left Arm Large Adult HEENT: Sclera anicteric, NC/AT Neck: no adenopathy. No elevated JVP CV: RRR no murmurs, rubs, gallops Lungs: Clear to auscultation and percussion ABD: soft, NT, ND, no masses Allograft: Nontender, wound well healed EXT: no edema, L foot with transmetatarsal amputation incision healed except for very small region (1-2 cm) at end that is clean/dry mostly healed NEURO: non focal SKIN: no rash, lesion. Protein/Creat Ratio Date Value 09/24/2022 0.07 mg/mg 08/03/2022 0.08 mg/mg 07/05/2022 0.12 mg/mg 06/08/2022 0.07 mg/mg 03/08/2022 0.1 12/08/2021 0.1 10/30/2021 0.2 10/19/2021 0.1 09/04/2021 0.1 07/20/2021 0.1 06/19/2021 0.1 05/30/2021 0.1 Creatinine (mg/dL) Date Value 12/28/2022 2.84 10/13/2022 1.61 09/15/2022 1.55 08/25/2022 1.40 08/04/2022 1.52 11/02/2021 1.34 10/25/2021 1.32 10/17/2021 1.27 10/06/2021 1.07 08/30/2021 1.59 BUN (mg/dL) Date Value 12/28/2022 53 10/13/2022 31 09/15/2022 35 11/02/2021 38 10/25/2021 38 10/17/2021 36 Amylase (U/L) Date Value 07/16/2018 21 Lipase (U/L) Date Value 07/16/2018 23 Tacrolimus/FK506 (ng/mL) Date Value 12/28/2022 9.7 10/13/2022 7.3 09/15/2022 4.9 08/25/2022 5.0 11/02/2021 9.5 10/25/2021 9.2 10/17/2021 3.6 10/06/2021 5.2 WBC (k/uL) Date Value 12/28/2022 6.67 10/13/2022 5.38 09/15/2022 6.50 11/02/2021 6.06 10/25/2021 5.60 10/17/2021 4.75 Hemoglobin (g/dL) Date Value 12/28/2022 15.4 10/13/2022 16.2 09/15/2022 15.7 11/02/2021 14.8 10/25/2021 14.5 10/17/2021 14.3 Hematocrit (%) Date Value 12/28/2022 46.4 10/13/2022 49.8 09/15/2022 49.6 11/02/2021 48.7 10/25/2021 47.4 10/17/2021 47.1 Platelet Count (k/uL) Date Value 12/28/2022 215 10/13/2022 205 09/15/2022 216 11/02/2021 263 10/25/2021 337 10/17/2021 241 Calcium (mg/dL) Date Value 11/02/2021 9.3 10/25/2021 10.0 10/17/2021 9.4 Calcium, Total (mg/dL) Date Value 12/28/2022 9.5 10/13/2022 9.5 09/15/2022 10.0 Phosphorus (mg/dL) Date Value 12/28/2022 4.5 10/13/2022 3.5 09/15/2022 2.9 11/02/2021 3.5 10/25/2021 2.1 10/17/2021 2.1 PTH, Intact (pg/mL) Date Value 03/03/2022 66 02/13/2022 64 01/26/2022 64 07/28/2021 57 07/18/2021 90 01/06/2019 209 VITAMIN D (ng/mL) Date Value 02/21/2015 14.4 BK Virus DNA Quant (IU/mL) Date Value 08/30/2021 BKV DNA not detected by PCR. 08/24/2021 BKV DNA not detected by PCR. 08/08/2021 BKV DNA not detected by PCR. CMV DNA (IU/mL) (IU/mL) Date Value 11/02/2021 165 10/25/2021 426 10/17/2021 703 Recent Labs 09/24/22 1011 08/03/22 1025 07/05/22 1044 COLOR Light Yellow Light Yellow Light Yellow CLARITY Clear Clear Clear UGLUC 3+* 3+* 4+* UBILI Negative Negative Negative UKET Negative Negative Negative SPGR 1.013 1.015 1.015 UHB Negative Trace* Negative UPH 6.0 5.5 6.0 UPROT Negative Negative Negative NITRITES Negative Negative Negative LEUKEST Negative Negative Negative Assessment: 52 year old s/p Kidney Transplant: 03/09/2021 (Kidney) Plan: Allograft Function: ILDA now- r/o rejection Pt will have DSA and allosure today. Plan to hydrate andrepeat labs on Saturday. UA and UPC pending. To obtain Urine culture with next set of labs. Schedule kidney biopsy. Pt instructed to hold ASA starting today. Immunosuppression: On tacro (level therapeutic), MMF (reduced dose due to foot infection) and prednisone. Blood Pressure: Well controlled on coreg and losartan. Electrolytes and Acid-Base Status: Acceptable except for mild met acidosis in the setting of ILDA. Hematology: Hgb at goal. Lipids/CVD: Hold asa due to potential biopsy. Bone-Mineral Disease: Ca and phos at goal. Viral Monitoring: CMV neg, Bk neg. Follow-up labs and appointment: Return in 3-4 months. Labs in < 1 week, planning for biopsy. Z94.0 Kidney replaced by transplant (primary encounter diagnosis) Z48.22 Encounter for aftercare following kidney transplant Z79.899, Z94.0 Immunosuppressive management encounter following kidney transplant N17.9 ILDA (acute kidney injury) (HCC) This patient's labs and imaging were reviewed for maintenance of allograft function, prevention of rejection, therapeutic drug management, and monitoring and treating associated comobidities. This requires medical decision making of high complexity. Chelsea Ryan MD documented in this encounterMary [facility]an Hospital03-17-2023 History of Present illness Narrative* Zaida Gaston MD - 11/23/2022 3:01 PM EDT Reason for Visit Patient presents with: Recheck: 3 month follow up Italo Burgos is a 51 year old male who presents here today for Above Complaints. Health Maintenance HEPATITIS A(1 of 2 - Risk 2-dose series) SHINGRIX VACCINE(1 of 2) COVID-19 VACCINE(4 - Booster) INFLUENZA(1) DIABETIC FOOT EXAM PNEUMOCOCCAL(3 - PPSV23 if available, else PCV20) HPI Here after amputation of his left toes. Italo is a very pleasant 50-year-old gentleman kidney transplant on March 09, 2021 end-stage kidney disease from poor diabetic control. He has a history of HTN, Diabetes Mellitus with retinopathy, blind left eye, RLE weakness, CHF, bronchitis, depression, ED, GERD, HPL, renal calculi in the new kidney, LUANNE. S/p amputation of all the left toes. Had an unfortunate event last summer where he walked bare foot, 3 weeks ago the amputation of toes were completed He is still on scooter, will get artificial toes to help him. He notes his sugars are well controlled. Seeing Dr Durand. Diabetes Mellitus: sees Dr Durand, fasting sugars are mostly in the 160 range and after food it is around 190. He is eating well, as his had a bypass and is eating very well. No problem-specific Assessment & Plan notes found for this encounter. PAST MEDICAL HISTORY Diagnosis Date Acute diastolic (congestive) heart failure (HCC) Bronchitis Chronic kidney failure, stage 4 (severe) (HCC) Depression Detached retina DM type 2, goal HbA1c < 7% (HCC) ESRD (end stage renal disease) (HCC) GERD (gastroesophageal reflux disease) Hyperlipidemia Kidney stones LUANNE (obstructive sleep apnea) PNA (pneumonia) Proliferative retinopathy 02/10/2019 Snoring Unspecified essential hypertension Vitamin D deficiency PAST SURGICAL HISTORY Procedure Laterality Date AMPUTATION TOE,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 08/08/2018 Done at [facility] by Satish Phan MD CHOLECYSTECTOMY 1998 Cholecystectomy COLONOSCOPY 12/04/2018 CYSTO W/COMPLEX REMOVAL STONE & STENT 1999 EGD 12/04/2018 PAST SURGICAL HISTORY OF Left 2012 & 2014 removal eye fluid with instillation oil FAMILY HISTORY Problem Relation Age of Onset Colon Cancer Father 53 Diabetes Brother 52 Diabetes Sister Diabetes Mother 78 Heart Attack Mother Cancer Brother 49 lung Diabetes Son Social History Tobacco Use Smoking status: Never Smokeless tobacco: Current Types: Snuff Tobacco comments: snuff x 33 years Vaping Use Vaping Use: Never used Substance Use Topics Alcohol use: Not Currently Drug use: No Past medical history, appointments, medications, allergies reviewed. Pertinent Lab/Diagnostic Studies are reviewed and discussed today Current Outpatient Medications: insulin glargine (LANTUS SOLOSTAR U-100 INSULIN) 100 unit/mL (3 mL) insulin lispro (HUMALOG KWIKPEN INSULIN) 100 unit/mL buPROPion XL (WELLBUTRIN XL) 300 mg 24 hr tablet tacrolimus ER (ENVARSUS XR) 0.75 mg tablet mycophenolate mofetil (CELLCEPT) [address] (PROTONIX) 20 mg tablet cholecalciferol (VITAMIN D3) 1,000 unit tab tablet Insulin [place], Disposable, (BD ULTRA-FINE SANDRA PEN NEEDLE) 32 gauge x 5/32 sulfamethoxazole-trimethoprim (BACTRIM) 400-80 mg per tablet gabapentin (NEURONTIN) 100 mg capsule losartan (COZAAR) 25 mg tablet carvedilol (COREG) 25 mg tablet MEDICAL SUPPLY predniSONE (DELTASONE) 5 mg tablet Lancets lancets Blood-Glucose Meter monitoring kit blood sugar diagnostic (BLOOD GLUCOSE TEST) test strip blood sugar diagnostic (BLOOD GLUCOSE TEST) test strip glucagon 3 mg/actuation nasal spray (BAQSIMI) aspirin 81 mg chewable tablet fluticasone (FLONASE) 50 mcg/actuation nasal spray CPAP >Compression Knee Highs 30-40 mm ACETAMINOPHEN ORAL Review of Systems CONSTITUTIONAL: No [...] or numbness of concern. Physical Exam BP 118/72 Pulse 86 Temp 36.3 C (97.4 F) (Temporal) Resp 16 Wt 107 kg (236 lb) SpO2 95% BMI 35.88 kg/m General appearance: Well appearing, alert, in no acute distress, well nourished. Skin: Skin color, texture, turgor normal, no suspicious rashes or lesions Head: Normocephalic, no masses, lesions, tenderness or abnormalities Eyes: Anicteric sclera. Pupils are equally round and reactive to light. Extraocular movements are intact. Lungs: Lungs clear to auscultation. No wheezing, rhonchi, rales Heart: RRR without murmur, gallop, or rubs. Extremities:on a scooter, with the left foot bandaged.. skin discoloration, clubbing or cyanosis. Good capillary refill. ASSESSMENT/PLAN: 1. Moderate episode of recurrent major depressive disorder (HCC) - ICD9: 296.32, ICD10: F33.1 (primary diagnosis) Cont the wellbutrin. 2. 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 (HCC) - ICD9: 585.6, V45.11, ICD10: N18.6, Z99.2 - eGFR: Stable S/p transplant, we are working to get his bp and sugars controlled 3. Type 1 diabetes mellitus on insulin therapy (HCC) - ICD9: 250.01, ICD10: E10.9 - Controlled - Continue current medications 4. Diabetic polyneuropathy associated with type 2 diabetes mellitus (HCC) - ICD9: 250.60, 357.2, ICD10: E11.42 - Controlled - Continue current medications 5. Right leg weakness - ICD9: 729.89, ICD10: R29.898 Stable. No worsening 6. Hypertension goal BP (blood pressure) < 140/90 - ICD9: 401.9, ICD10: I10 - good control - Recommended regular aerobic exercise. - Recommend home blood pressure monitoring, to bring results in on next visit - Goal of BP <130/80 Zaida Gaston MD documented in this encounterMary Rutan Hospital03-16-2023 History of Present illness Narrative* Verna Jensen [facility] - 11/22/2022 1:00 PM EDT Images from the original note were not included. Primary Care Pharmacy Visit CC (Reason for Consult): Diabetes Goal: A1c < 7% Collaborating Provider: Dr. Gaston Last Provider Visit: 08/25/22 Italo Burgos is a 51 year old male presenting for follow up visit in person. Patient consents [facility] collaborative practice agreement. Patient is presenting today for f/up pharmacotherapy management appointment for diabetes. At initial PharmD visit on 08/23, patient reported not being certain if he had T1 vs T2DM but was following soon with endocrinology. Lantus was increased, Dexcom G6 was ordered, and briefly discussed carb counting/insulin dosing though patient didn't have interest in pursuing that further at the time. At last PCP appt, no med changes made. On 09/24 patient saw endo pharmacist at [facility]. No med changes made since minimal SMBGs to review but patient encouraged to discuss GLP1 with park activities coordinator. At last PharmD visit on 10/04, no med changes made since patient recently started working with endo. Subjective: HPI: Said he saw park activities coordinator recently. He reports his sugars were looking pretty good. He discussed GLP1, his understanding is they are going to continue monitoring his sugars and determine later on if should try a GLP1 agonist. Last saw 1 month ago, has f/up appt next month. Patient states he has no questions or concerns today. Had recent surgery on foot, several toes removed, 3 weeks ago. In a cast. Not able to get around very well at this time, exercise is limited. Tried carb counting in the past, didn't like doing it and not interested in trying. Wants to know if tuna will raise his BG. Not reviewing nutrition labels. Current DM Medications: Insulin glargine (Lantus) 48 units QAM (taking 44 units, states endo reduced dose at last visit) Insulin lispro (Humalog) 16 units + SSI TIDAC (2 units for every 40 > 180) (taking 20-16-20 units + SSI TIDAC per endo) Current HTN Medications: Losartan 25mg daily Carvedilol 25mg BID GLYCEMIC CONTROL: Preventative Medications: On TOM/ARB: Yes On Statin: No ROS: Patient denies CP, SOB, VELASCO, blurred vision, dizziness or lightheadedness Patient denies symptoms of hypoglycemia (sweating, anxiety, palpitations, hunger, and tremor) Patient denies symptoms of hyperglycemia (polyuria, polydipsia, polyphagia) Patient denies potential medication adverse effects DIET/EXERCISE/SOCIAL Hx: No dietary changes Has less physical activity over past 3 weeks since foot surgery This AM had a glass of milk, bowl cereal, piece of toast --> took 21 units insulin MEDICATIONS: Pill bottles are not present Adherence: denies missed doses Pharmacy: [facility]; [facility] is alternative Rx coverage: [facility] Medicare + Medicaid Affordability: no issues Diabetes supplies: [employer] Organization System: pill boxes ACTIVE PROBLEM LIST Uncontrolled Type 2 Diabetes Mellitus With Complication, With Long-Term Current Use of Insulin Hypertension Goal Bp (Blood Pressure) < 140/90 Other Hyperlipidemia Ed (Erectile Dysfunction) Lower Urinary Tract Symptoms (Luts) History of Kidney Stones Microscopic Hematuria Diabetic Polyneuropathy Associated With Type 2 Diabetes Mellitus ([facility]) Nausea Vomiting Moderate Episode of Recurrent Major Depressive Disorder ([facility]) Right Leg Weakness Gait Instability Ckd (Chronic Kidney Disease) Requiring Chronic Dialysis ([facility]) Kidney Transplant Recipient Type 1 Diabetes Mellitus On Insulin Therapy ([facility]) PAST MEDICAL HISTORY Diagnosis Date Acute diastolic (congestive) heart failure ([facility]) Bronchitis Chronic kidney failure, stage 4 (severe) ([facility]) Depression Detached retina DM type 2, goal HbA1c < 7% ([facility]) ESRD (end stage renal disease) ([facility]) GERD (gastroesophageal reflux disease) Hyperlipidemia Kidney stones LUANNE (obstructive sleep apnea) PNA (pneumonia) Proliferative retinopathy 02/10/2019 Snoring Unspecified essential hypertension Vitamin D deficiency ALLERGIES No Known Allergies Medication List Medication Directions Comments Action/Plan >Compression Knee Highs 30-40 mm KNEE HIGH COMPRESSION STOCKINGS, 30-40 MM, I DX: EDEMA ACETAMINOPHEN ORAL Take by mouth. 1000 mg bid for pain / aches aspirin 81 mg chewable tablet chew and swallow 1 tablet by mouth once daily. blood sugar diagnostic (BLOOD GLUCOSE TEST) test strip TEST BLOOD SUGAR 3 TIMES PER DAY. DX: 250.E11.9. INSULIN DEP: yes blood sugar diagnostic (BLOOD GLUCOSE TEST) test strip One Touch Verio preferred - Kit - Dx E11.8 Insulin Dependent, Test blood sugar three times a day Blood-Glucose Meter monitoring kit Glucose Meter of Choice, One Touch Verio preferred - Kit - Dx E11.8 Insulin Dependent, Test blood sugar three times a day buPROPion XL (WELLBUTRIN XL) 300 mg 24 hr tablet Take 1 tablet by mouth once daily. carvedilol (COREG) 25 mg tablet Take 1 tablet by mouth twice daily. cholecalciferol (VITAMIN D3) 1,000 unit tab tablet Take 1 tablet by mouth q 24 HR. CPAP Initiate Auto PAP @ 5-20 cm of water with humidification. Mask (per patient preference) optional chin strap (if indicated) , filters, tubing, humidifier and lifetime supplies. fluticasone (FLONASE) 50 mcg/actuation nasal spray Use 2 Sprays in each nostril once daily. gabapentin (NEURONTIN) 100 mg capsule Take 1 capsule by mouth daily at bedtime for 180 days. glucagon 3 mg/actuation nasal spray (BAQSIMI) Use 1 [place] in the nose as needed for low blood sugar. May repeat after 15 minutes using a new device if there is no response. insulin glargine (LANTUS SOLOSTAR U-100 INSULIN) 100 unit/mL (3 mL) Inject 48 Units subcutaneously every morning. insulin lispro (HUMALOG KWIKPEN INSULIN) 100 unit/mL Inject 16 units plus sliding scale with meals three times daily. For snacks, inject 8 units plus sliding scale (Sliding scale: 2 units for every 40 >180 mg/dL) Insulin [place], Disposable, (BD ULTRA-FINE SANDRA PEN NEEDLE) 32 gauge x 5/32 Use as directed four times daily Lancets lancets Test Blood Sugar 3 x/day. Dx E11.8 Insulin Dependent, One Touch Verio brand preferred losartan (COZAAR) 25 mg tablet Take 1 tablet by mouth once daily. MEDICAL SUPPLY D/C oxygen mycophenolate mofetil (CELLCEPT) 250 mg capsule Take 1 capsule by mouth twice daily. pantoprazole DR (PROTONIX) 20 mg tablet Take 1 tablet by mouth once daily. predniSONE (DELTASONE) 5 mg tablet Take 1 tablet by mouth once daily. sulfamethoxazole-trimethoprim (BACTRIM) 400-80 mg per tablet Take 1 tablet by mouth once daily. tacrolimus ER (ENVARSUS XR) 0.75 mg tablet Take 2 tablets by mouth once daily. Objective: Exam: Last 3 Encounter BP Readings: Date: BP: 10/04/2022 103/64 09/24/2022 148/70 08/25/2022 134/72 Wt: 104.1 kg (229 lb 6.4 oz) BMI: 34.88 kg/(m^2) LABS: Reviewed Lab Results Component Value Date HBA1C 8.6 10/13/2022 HBA1C 10.6 07/13/2022 HBA1C 8.2 07/11/2021 HBA1C 7.5 03/23/2021 HBA1C 6.0 08/12/2020 CMP: Glucose 214 10/13/2022 BUN 31 10/13/2022 Creatinine 1.61 10/13/2022 Sodium 139 10/13/2022 Potassium 5.4 10/13/2022 Chloride 105 10/13/2022 CO2 Content, Venous 24 10/13/2022 Protein, Total 7.1 10/13/2022 Albumin 4.2 10/13/2022 Calcium 9.5 10/13/2022 Alkaline Phosphatase 142 10/13/2022 Bilirubin, Total 0.3 10/13/2022 AST 26 10/13/2022 ALT 30 10/13/2022 eGFR 51 (per CMP 10/13/22) Estimated Creatinine Clearance: 62.1 mL/min (A) (based on SCr of 1.61 mg/dL (H)). Lab Results Component Value Date CHOL 206 10/13/2022 CHOL 141 07/28/2021 LDL 131 10/13/2022 LDL 70 07/28/2021 HDL 51 10/13/2022 HDL 52 07/28/2021 TG 121 10/13/2022 TG 94 07/28/2021 The 10-year ASCVD risk score (Chan LIMA, et al., 2019) is: 7.2% Values used to calculate the score: Age: 51 years Sex: Male Is Non- : No Diabetic: Yes Tobacco smoker: No Systolic Blood Pressure: 103 mmHg Is BP treated: Yes HDL Cholesterol: 51 mg/dL Total Cholesterol: 206 mg/dL Albumin/Creat Ratio (mg/g) Date Value 09/15/2022 <19 PHARMACOTHERAPY ASSESSMENT/PLAN: 1. Type 1 diabetes mellitus on insulin therapy (HCC) - ICD9: 250.01, ICD10: E10.9 A1c goal < 7%; uncontrolled (last A1c 8.6%); CGM report not at goal; not having frequent lows; not interested in learning how to carb count; patient is being managed closely by endo - just had insulin adjustment last month and f/up scheduled in several weeks; no reason for PharmD to continue seeing patient since being closely managed by endo so will sign off from PharmD services CONTINUE Lantus 44 units daily and Humalog 20-16-20 units + SSI TIDAC per endocrinology Encouraged to start reviewing nutrition labels. Provided some education on carbs vs protein, encouraged to limit carb intake to no more than 2-3 servings (30- 45g) with each meal. Nutritional booklet provided HbA1c: due 01/10 Care Transition Back to PCP Our mutual patient, Italo Burgos, who was referred to primary care pharmacy services for Diabetes management, patient is being actively managed by [place] [facility] with frequent appointments so there is no need to see PharmD at this time since med adjustments are all per endo . We will not be scheduling further follow up with pharmacy at this time. They have been encouraged to follow up with you for ongoing management. As always, you may refer Italo Burgos back to pharmacy for management in the future. Thank you for utilizing primary care pharmacy services. Follow-up Patient is scheduled to see PCP team on 11/23. Patient verbalized understanding of instructions. Verna Jensen PharmD, [facility] Primary Care Clinical Pharmacist The majority of the pharmacy visit (> 50%) was spent counseling and/or coordinating care for thepatient. interaction: face to face time was 26 minutes. documented [facility] Instructions* Patient Instructions* Verna Jensen RPh - 11/22/2022 1:00 PM EDT Start reviewing nutrition labels. Try to limit your total number of carbohydrates per meal to 30-45grams (2-3 servings). Start learning which foods have a lot of carbs, protein, etc. This will help you to make better selections for food choices. documented in this encounterMary [facility]02-27-[address] Nava [facility] November 05, 2022 2:22pm Note Date/Time November 05, 2022 2:22pm [facility] Medical Records Department [address] [place] [address] Progress Note - Infect Disease 11/05/22 1419 MR#: [id number] Acct: [id number] Name: ITALO BURGOS Rep #:[id number] : 1970 51 From: Satish cochran MD PCP: Dr. Zaida Gaston MD Status:ADM I N Location: MS3 [id number] Physical Exam Narrative Feeling well, wants to go home, no fever Const alert and no apparent distress Resp normal air movement and clear to auscultation bilaterally Cardio regular rate and regular rhythm GI soft to palpation, non-tender and non-distended Skin Skin Narrative: foot wrapped ID ID: Route of nutrition/ use of supplements: [] Nutritional Intake: [] IV Site: [] Wilhelm Catheter: [] Assessment & Plan Assessment/Plan (1) Osteomyelitis of foot, left, acute: PLAN: Now s/p TMA 11/01/[address] Levy. 1 of 2 bcx with CoNS, consistent with contaminant. Surg cx with gram pos growing so far but this was not checking for clearance. Wound cx 10/25/22 with MRSE and PsA. On vanc/zosyn. Ok for discharge with po doxy 100mg bid and po cipro 500mg bid at discharge for 1 week. Will follow (2) Type 2 diabetes mellitus with diabetic polyneuropathy: (3) Renal transplant recipient: 11/05/22 1422 <Electronically signed by Satish Nava MD> Cosigner Signature (if applicable): CC: ~ Signed [facility] Work Phone: 1(213) 954-719502-27-[address] Santiago [facility] November 05, 2022 1:42pm Note Date/Time November 01, 2022 10:16am [facility] Medical Records Department [address] [place] [address] Emergency Department Summary 11/01/22 MR#: [id number] Acct: [id number] Name: ITALO BURGOS Rep #:[id number] : 1970 51 From: Chuy Santiago MD PCP: Dr. Zaida Gaston MD Status:ADM I N Location: MS3 WO663-8 HPI History of Present Illness Chief Complaint: Cellulitis Detail of Chief Complaint: Cellulitis and infected third and fourth left toe Informant: patient, spouse/S.O. and other (Dr. Levy, middleware consultant) Onset/Context/Timing Onset: Days (Patient states he noted changes in toes 2 days ago.) Context: Sudden Onset Timing: Continuous Quality: Blister fourth toe and discoloration third toe Location: Left foot Current Severity: Moderate Maximum Severity: Moderate Worsened by: Unknown Relieved by: Nothing Associated Symptoms Associated Symptoms: Nothing Narrative Narrative: Patient is a 51-year-old male with multiple medical problems who was seen today at podiatry/wound clinic. He was seen by Dr. Dona Medina. Chief complaintper Dr. Medina is osteomyelitis of left foot; diabetic foot ulceration. Patient had I&D for gas gangrene with partial fifth ray resection on March 24, 2022. The ulcer has not progressed with regards to healing. Dr. Medina commented he has Gustafson stage III ulcer on his left foot. He apparently navigates using a knee scooter. X-ray that was obtained on May 31 revealed osseous destruction of the head and distal diaphysis of the fourth metatarsal and base of the fourth proximal phalanx. Patient had arterial study performed January 09, 2022. Right ankle-brachial index is 1.19. Left ankle-brachialindex is not critical. Index is 0.67. There was evidence of mild arterial occlusive disease at the digital level on the left. Patient states the skin wasunroofed by Dr. Medina at the wound center. This involved the distal portion of the left fourth toe. Patient denies injury. He informed Dr. Medina that his symptom started 2 daysago. He did notify anyone of discoloration of his toes. Patient denies fever, chills night sweats. Patient does endorse symptoms of claudication after walking 1-2 blocks. Suspect patient dynamic peripheral arterial studies will show significant abnormality. Patient denies smoking. Patient states his blood sugars have been running in the 200 range, which is not abnormal for him. Patient denies cardiac respiratory symptoms. Patient denies GI symptoms. Patient denies urologic symptoms. Previous A1c level noted elevation of 10.5. Patient has significant cardiovascular disease. Per review of Dr. jV Cabral's notes authored 01/19/2021 reveal history of coronary disease (mild), diastolic congestive heart failure, left ventricular hypertrophy, hypertension. He also has history of type II diabetic neuropathy. Patient presently chews. He does not smoke cigarettes. [facility] Medical History Acute hypoxemic respiratory failure Acute on chronic diastolic CHF (congestive heart failure) Acute respiratory failure with hypoxia ILDA (acute kidney injury) Anasarca associated with disorder of kidney Anemia of chronic renal failure, stage 4 (severe) Anxiety and depression Atherosclerotic heart disease of [place] coronary artery without angina pectoris Autonomic neuropathy Blind left eye Cellulitis and abscess of right leg Cellulitis of left lower limb Chewing tobacco nicotine dependence Chronic renal failure, stage 4 (severe) Chronic renal failure, stage 5 Chronic ulcer of 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 Congestive heart failure (CHF) COVID-19 COVID-19 Diabetes mellitus type II, uncontrolled Diabetic foot infection Diabetic foot ulcer Diabetic nephropathy Diabetic neuropathy Diabetic retinopathy Dyspnea Essential hypertension Fistula (~12/2018) Gas gangrene of foot GERD (gastroesophageal reflux disease) History of acute myocardial infarction History of left heart catheterization (LHC) (~06/26/11) HLD (hyperlipidemia) Hypertensive emergency Hypoglycemia Hypokalemia Hypoxemia Kidney failure Kidney stones Necrotizing fasciitis 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 exposed Noncompliance Obesity (BMI 30-39.9) Pneumonia Problem with dialysis access Pulmonary edema Respiratory failure Retention, urine Right leg pain 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 Vision problems Home Medications insulin lispro 100 unit/mL subcutaneous pen 16 unit SQ TID blood sugar 10/06/19 [History Last Taken 10/31/22] insulin glargine 100 unit/mL (3 mL) subcutaneous pen 44 unit subcut DAILY blood sugar 08/11/20 [History Last Taken 10/31/22] docusate sodium 100 mg capsule (Colace) 100 mg PO DAILY constipation 09/18/21 [History Last Taken 10/28/22] pantoprazole 20 mg tablet,delayed release (Protonix) 20 mg PO DAILY gerd 09/18/21 [History Last Taken 11/01/22 07:00] prednisone 5 mg tablet 5 mg PO DAILY steroid 09/18/21 [History Last Taken 11/01/22 07:00] tacrolimus 1 mg tablet,extended release 24 hr (Envarsus XR) 1 mg PO DAILY rejection med 09/18/21 [History Last Taken 11/01/22 07:00] carvedilol 25 mg tablet 25 mg PO BID HEART 12/26/21 [History Last Taken 11/01/22 07:00] cholecalciferol (vitamin D3) 25 mcg (1,000 unit) capsule (Vitamin D3) 50 mcg PO FR SUPPLEMENT' 12/26/21 [History Last Taken 10/26/22] losartan 25 mg tablet 25 mg PO DAILY BP 09/05/22 [History Last Taken 11/01/22 07:00] sulfamethoxazole 400 mg-trimethoprim 80 mg tablet 1 tablet PO DAILY INFECTION 09/05/22 [History Last Taken 11/01/22 07:00] acetaminophen 500 mg tablet 1,000 mg PO Q4H PRN Pain 11/01/22 [History Last Taken 10/31/22] aspirin 81 mg chewable tablet 81 mg PO DAILY HEALTH 11/01/22 [History Last Taken 11/01/22 07:00] bupropion HCl 300 mg 24 hr tablet, extended release 300 mg PO DAILY MOOD 11/01/22 [History Last Taken 11/01/22 07:00] gabapentin 100 mg capsule 100 mg PO QHS NERVE PAIN 11/01/22 [History Last Taken 10/31/22] Allergy/AdvReac Type Severity Reaction Status Date / Time No Known Allergies Allergy Verified 10/18/22 09:18 Family History Mother Heart disease Hypertension Father Cancer Brother Cancer Diabetes Sister Diabetes Other Alcohol abuse Depression H/O transfusion of whole blood Kidney disease Surgical History (Updated 11/02/22 @ 11:[address] Satish Nava MD) History of appendectomy History of arteriovenostomy for renal dialysis (~08/2018) History of artificial lens replacement History of cholecystectomy History of eye surgery Kidney replaced by transplant Renal transplant recipient Status post insertion of dialysis catheter (~08/2018) Social History household members: spouse Smoking Status: Never smoker second hand exposure: No alcohol intake: never substance use type: does not use caffeine: No what type of physical activity do you participate in: none ROS ROS ED Constitutional Constitutional ED: Denies chills, fever(s), subjective, sweats or weight loss Eyes Eyes: Denies blurry vision, change in vision or diplopia ENT ENT ED: Denies ear pain, rhinorrhea or sore throat Cardiovascular Cardiovascular: Denies chest pain, orthopnea, palpitations, paroxysmal nocturnaldyspnea or racing heartbeat Respiratory/Chest Respiratory/Chest: Denies cough, dyspnea, dyspnea on exertion, orthopnea or paroxysmal nocturnal dyspnea Gastrointestinal Gastrointestinal: Denies abdominal pain, constipation, diarrhea, melena, nausea or vomiting Genitourinary Genitourinary ED: Denies dysuria, hematuria or urinary frequency Musculoskeletal Musculoskeletal: Reports other Details: Diabetic foot infection ; Denies arthralgias, back pain, myalgias or neck pain Integumentary Reports abscess Neurologic Neurologic: Reports other Details: Patient states he has no sensation in his feet due to diabetic neuropathy. ; Denies headache(s), paresthesias or weakness Psychiatric Psychiatric: Reports depression Endocrine Endocrinology: Reports polydipsia and polyuria; Denies cold intolerance or heat intolerance Hematologic/Lymphatic Hematologic/Lymphatic: Reports systems reviewed and no addt'l complaints, exceptas documented EXAM Physical Exam Const Vital Signs: 11/01/22 09:23 11/01/22 09:42 11/01/22 09:48 Temperature 97.6 F L 97.6 F L Temperature Source Temporal Temporal Pulse Rate 89 89 Respiratory Rate 16 16 Blood Pressure 166/79 H 166/79 H Blood Pressure Mean 108 108 Pulse Ox 97 98 Oxygen Delivery Method Room Air Room Air Room Air Positive well nourished, well developed, obese and unkempt General Appearance ED: unkempt, well developed, NAD and pallor; Negative for cyanotic or diaphoretic Nutritional Appearance: obese HEENT Reports dry mucous membranes HEENT Narrative: Head is atraumatic normocephalic. Ears are normal. Nares are patent. Posterior pharynx out erythema or exudate. Mouth ED: Yes dry mucous membranes Mouth: dry mucous membranes Eyes PERRL and EOMs intact bilaterally General Eye ED: Negative for pale conjunctiva or scleral icterus Neck no lymphadenopathy, supple and no JVD Chest Wall inspection of chest normal and palpation of chest normal Resp normal respiratory effort and clear to auscultation bilaterally Cardio regular rate, regular rhythm, S1 normal heart sound, S2 normal heart sound and no murmurs GI normal to inspection, nondistended, normoactive bowel sounds, non-tender, non-distended and no masses; Negative for hepatosplenomegaly Palpation: soft Back/Spine no CVA tenderness Extremity Extremity Narrative: Patient has a swollen discolored left third toe with an ulcer on the plantar surface. There is cellulitis of the dorsal third of the left foot. There is nolymphangitis. DP pulses palpable. PT pulse is not palpable. Patient skin has been removed on the left fourth toe. Patient has findings consistent with peripheral arterial disease, suspect this to be microvascular due to his poorly controlled diabetes. Neuro oriented x3, CN's II-XII intact bilaterally and No no sensory deficits noted Sensorium / Orientation: alert Psych Appearance: unkempt Skin No no rashes or lesions noted and No no wounds General Skin Exam: pallor; Negative for elasticity normal or jaundice MDM MDM MDM Narrative Medical decision making narrative: Patient has a diabetic foot infection and concern for osteomyelitis of the left third toe. There is an odor to his toe. There is no drainage noted with palpation from the ulceration on the plantar surface. There is evidence of cellulitis. Sepsis work- up was undertaken. Spoke with Dr. Levy who works with Dr. Medina. Plan is to OR for amputation. We will speak to patient. Patient was started on IV Zosyn and vancomycin. Patient was made NPO. Inflammatory markers were obtained and used as baseline for postoperative care. Prior records were reviewed and documented in the HPI narrative. Lab Data Attestation: I reviewed the patient's lab results. Lab results narrative: CBC is unremarkable. Coags are normal. Basic metabolic panel is marked for glucose of 266 with a normal CO2 anion gap. BUN and creatinine are elevated at 37 and 1.63. Potassium is mildly elevated 5.2. Labs: Laboratory Results - last 24 hr 11/01/22 11/01/22 11/01/22 09:49 09:49 09:49 WBC 6.4 RBC 5.23 Hgb 15.9 Hct 49.7 MCV 95.0 H MCH 30.4 MCHC 32.0 RDW Std Deviation 44.9 H RDW Coeff of Tomy 12.7 Plt Count 199 MPV 9.9 Immature Gran % (Auto) 0.500 Neut % (Auto) 67.5 Lymph % (Auto) 21.1 Campbell % (Auto) 9.7 Eos % (Auto) 0.9 Baso % (Auto) 0.3 Absolute Neuts (auto) 4.3 Absolute Lymphs (auto) 1.35 Nucleated RBC % 0 ESR 10 PT 13.4 INR 1.1 APTT 28.9 Sodium 139 Potassium 5.2 H Chloride 108 H Carbon Dioxide 25.0 Anion Gap 6 BUN 37 H Creatinine 1.63 H Estim Creat Clear Calc 50.71 Est GFR (MDRD) Af Amer 57 L Est GFR (MDRD) Non-Af 47 L BUN/Creatinine Ratio 22.7 H Glucose 266 H Lactic Acid Calcium 9.6 Total Bilirubin 0.50 AST 23 ALT 41 Alkaline Phosphatase 156 H C-React Prot Ext Range 10.80 H Total Protein 7.2 Albumin 3.5 Globulin 3.7 Albumin/Globulin Ratio 0.9 11/01/22 09:49 WBC RBC Hgb Hct MCV MCH MCHC RDW Std Deviation RDW Coeff of Tomy Plt Count MPV Immature Gran % (Auto) Neut % (Auto) Lymph % (Auto) Campbell % (Auto) Eos % (Auto) Baso % (Auto) Absolute Neuts (auto) Absolute Lymphs (auto) Nucleated RBC % ESR PT INR APTT Sodium Potassium Chloride Carbon Dioxide Anion Gap BUN Creatinine Estim Creat Clear Calc Est GFR (MDRD) Af Amer Est GFR (MDRD) Non-Af BUN/Creatinine Ratio Glucose Lactic Acid 1.4 Calcium Total Bilirubin AST ALT Alkaline Phosphatase C-React Prot Ext Range Total Protein Albumin Globulin Albumin/Globulin Ratio Radiography Chest X-Ray - ED: Read by ED Physician (2 view chest x-ray reveals limited inspiratory volume. There is no acute process noted. There is evidence of cardiomegaly. Perihilar regions unremarkable. Osseous structures unremarkable.) and - (Three-view x-ray of the left foot reveals amputation of the left little toe and fifth metatarsal. There is abnormality of the proximal phalanx and head of the fourth metatarsal. Review of prior records indicates this is old. There is soft tissue swelling noted of the third and fourth toe. There ) Diagnostic Testing: Clinical Impression(s) from Imaging Studies Foot X-Ray 11/01/22 09:42 IMPRESSION: Status post resection of the distal portion of the fifth metatarsal as well as the fifth toe. Partial resection of the distal aspect of the fourth metatarsal and proximal base of the fourth toe. Diffuse soft tissue swelling. Findings suggestive of a an ulceration overlying the distal aspect of the fourth metatarsal. Vascular calcification. Electronically Signed: Tristan France MD at 10:25 EST , Chest X-Ray 11/01/22 10:05 IMPRESSION: Cardiomegaly. The lungs are clear. Electronically Signed: Tristan rFance MD at 10:30 EST , EKG Initial EKG: Attestation: I personally reviewed and interpreted this EKG as follows: Interpretation: Sinus Rhythm (Ventricular rate is 78. There is a left axis. MI intervals 196 ms. QRS durations 106 ms. QT duration 376 ms. There is decreased anterior force. There is no acute ischemic changes noted.) Prior: Unchanged (EKG dated May 31, 2022) Critical Care Time Critical Care Time: Yes Critical care time (excluding procedures): 30-74 minutes (32), Including time spent: (History, physical, documentation, review of prior records, discussion with podiatry and hospitalist for preoperative clearance. Plan is to OR), Discussing w/Patient &/or Family/Director Of Materials Management, Discussing w/Consultants and Arranging Admission or Transfer Discharge Plan Dx/Rx/DC Orders Clinical Impression: Type 2 diabetes mellitus with left diabetic foot infection, Diabetic nephropathy, Chronic renal failure, stage 4 (severe), Anemia of chronic renal failure, stage 4 (severe), Atherosclerotic heart disease of [place] coronary artery without angina pectoris, Other specified peripheral vascular diseases, Type 2 diabetes mellitus with hyperglycemia, History of diastolic dysfunction, History of CAD (coronary artery disease) Disposition Disposition: Acute Care Hospital [facility] What to do if you have Problems For any increased pain, shortness of breath, bleeding, nausea or vomiting, chestpain, or any unexpected problems, contact your Primary Care Provider. Call [facility] ([phone]) or report to the closest Emergency Room. Call 911 if necessary. 11/05/22 1342 <Electronically signed by Chuy Santiago MD> Cosigner Signature (if applicable): CC: Dr. Zaida Gaston MD ~ Signed [facility] Work Phone: 1(552) 531-199502-26-[address] Jara [facility] November 04, 2022 3:37pm Note Date/Time November 04, 2022 2:46pm [facility] Medical Records Department [address] [place] [address] Pharmacokinetic/Renal -Consult 11/04/22 1446 MR#: [id number] Acct: [id number] Name: ITALO BURGOS Rep #:[id number] : 1970 51 From: Oscar Jorge [facility] PCP: Dr. Zaida Gaston MD Status:ADM I N Y Location: [place] [address] Consult Pharmacy has been consulted to manage selected antiobiotic: Vancomycin Type of Consult: Follow-up Labs: Sodium 143 mmol/L (136-145) 11/04/22 04:39 Potassium 4.6 mmol/L (3.5-5.1) 11/04/22 04:39 Chloride 114 mmol/L (98-107) H 11/04/22 04:39 Carbon Dioxide 19.0 mmol/L (21.0-32.0) L 11/04/22 04:39 Anion Gap 10 (5-15) 11/04/22 04:39 BUN 41 mg/dL (7-18) H 11/04/22 04:39 Creatinine 1.37 mg/dL (0.70-1.30) H 11/04/22 04:39 Est GFR (MDRD) Af Amer 70 mL/min (>60) 11/04/22 04:39 Est GFR (MDRD) Non-Af 58 mL/min (>60) L 11/04/22 04:39 BUN/Creatinine Ratio 29.9 RATIO (10-20) H 11/04/22 04:39 Glucose 167 mg/dL (74-106) H 11/04/22 04:39 Vancomycin Trough 21.1 ug/mL (5.0-15.0) H 11/03/22 19:32 Random Vancomycin 16.1 ug/mL (0.0-15.0) H 11/04/22 13:31 Microbiology: Microbiology 11/01/22 14:40 Incision/Surgical Site Gram Stain - Final 11/01/22 14:40 Incision/Surgical Site Wound Culture - Preliminary Gram Positive Cocci 11/01/22 14:40 Incision/Surgical Site Anaerobic Culture - Preliminary No growth in 48 hours. 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 11/01/22 09:50 Blood Culture (Wb) - Left Hand Blood Culture - Preliminary No growth in 48 hours. 11/01/22 09:49 Blood Culture (Wb) - Anticubital Left Bacteria Detection (PCR) - Final Coag Negative Staph 11/01/22 09:49 Blood Culture (Wb) - Anticubital Left Blood Culture - Preliminary Coag Negative Staph 11/01/22 11:30 Nasal Secretion SARS-CoV-2 Antigen (Rapid) - Final Goal Trough: 15-20 mcg/mL Pharmacy Plan for Drug Dosing: VANCOMYCIN LEVEL RECEIVED Current Vancomycin Dose: on hold due to elevated trough (was 1250mg q12h) Number of Doses Received: Vancomycin Level: 16.1 Hours Since Last Dose: ~17 hours since last 1250mg dose on 11/03/22 at 2014 Renal Function: SrCr 1.37 Renal Function Trend: SrCr improving Lab/Micro: Vancomycin Plan/Comments: recommend restarting Vancomycin at 1000mg q12h. Checking a trough prior to the 3rd dose to ensure proper dosing Pending Level: 11/05/22 at 1430 Pharmacy Service will continue to monitor and adjust dosing as required. Follow-Up Labs: Trough Vancomycin - 11/05/22 at 1430 11/04/22 1446 <Electronically signed by Oscar Mckeon [facility]> Date _ Oscar Bee [facility] 11/04/22 1537 <Electronically signed by Shruti schaefer MD> Cosigner Signature (if applicable): Date Shruti Jara MD CC: ~ Signed [facility] Work Phone: 1(216) 572-268602-26-[address] Jara [facility] November 04, 2022 3:37pm Note Date/Time November 04, 2022 1:50pm [facility] Medical Records Department [address] [place] [address] Progress Note 11/04/22 1346 MR#: [id number] Acct: [id number] Name: ITALO BURGOS Rep #:[id number] : 1970 51 From: Shruti Jara MD PCP: Dr. Zaida Gaston MD Status:ADM I N Location: [place] [address] Subjective Subjective Patient seen and examined. He had no complaints and had an uneventful night. Review of systems otherwise negative. He has remained hemodynamic stable. Objective Data Objective Data Vital Signs: Vital Signs Temp Pulse Resp BP Pulse Ox O2 Del Method O2 Flow Rate 98.5 F 90 16 146/79 H 98 Room Air 2 11/04/22 10:27 11/04/22 10:27 11/04/22 10:27 11/04/22 10:27 11/04/22 10:27 11/04/22 10:11/01/22 17:43 Oxygen Flow Rate (L/min) 2 Oxygen Delivery Method Room Air Weight: 239 lb 0.015 oz Body Mass Index (BMI) 80.3 Intake & Output: Intake and Output for Last 24 Hours 11/02/22 11/03/22 11/04/22 23:59 23:59 23:59 Intake Total 1720 / 1720 1300 / 1300 100 / 100 Balance 1720 / 1720 1300 / 1300 100 / 100 Lab / Micro Data Result Diagrams: 11/04/22 04:39 11/04/22 04:39 Labs: Laboratory Results - last 24 hr 11/03/22 19:32: Vancomycin Trough 21.1 H 11/04/22 04:39: C-React Prot Ext Range 8.08 H 11/04/22 04:39: WBC 6.2, RBC 4.62, Hgb 14.2, Hct 44.1, MCV 95.5 H, MCH 30.7, MCHC 32.2, RDW Std Deviation 45.1 H, RDW Coeff of Tomy 12.9, Plt Count 184, MPV 10.1, Immature Gran % (Auto) 0.300, Neut % (Auto) 61.4, Lymph % (Auto) 26.5, Campbell % (Auto) 10.5 H, Eos % (Auto) 0.8, Baso % (Auto) 0.5, Absolute Neuts (auto)3.8, Absolute Lymphs (auto) 1.64, Nucleated RBC % 0 11/04/22 04:39: Sodium 143, Potassium 4.6, Chloride 114 H, Carbon Dioxide 19.0 L, Anion Gap 10, BUN 41 H, Creatinine 1.37 H, Estim Creat Clear Calc 60.33, Est GFR (MDRD) Af Amer 70, Est GFR (MDRD) Non-Af 58 L, BUN/Creatinine Ratio 29.9 H, Glucose 167 H, Calcium 9.4 Micro: Microbiology 11/01/22 14:40 Incision/Surgical Site Gram Stain - Final 11/01/22 14:40 Incision/Surgical Site Wound Culture - Preliminary Gram Positive Cocci 11/01/22 14:40 Incision/Surgical Site Anaerobic Culture - Preliminary No growth in 48 hours. 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 11/01/22 09:50 Blood Culture (Wb) - Left Hand Blood Culture - Preliminary No growth in 48 hours. 11/01/22 09:49 Blood Culture (Wb) - Anticubital Left Bacteria Detection (PCR) - Final Coag Negative Staph 11/01/22 09:49 Blood Culture (Wb) - Anticubital Left Blood Culture - Preliminary Coag Negative Staph 11/01/22 11:30 Nasal Secretion SARS-CoV-2 Antigen (Rapid) - Final Physical Exam Const alert, oriented x3 and no apparent distress HEENT normocephalic, head/scalp atraumatic, moist oral mucous membranes and oropharynxnormal Eyes PERRL, EOMs intact bilaterally and conjunctivae normal Neck no lymphadenopathy, supple and no JVD Resp normal respiratory effort, normal air movement, no retractions, no use of accessory muscles and clear to auscultation bilaterally Cardio regular rate, regular rhythm, S1 normal heart sound, S2 normal heart sound and no murmurs GI normal to inspection, nondistended, normoactive bowel sounds, soft to palpation,non-tender and non-distended Extremity Extremity Narrative: Left foot bandaged. Skin Skin Narrative: Left foot bandaged. Neuro oriented x3, CN's II-XII intact bilaterally and moves all extremities Sensorium / Orientation: awake and alert Psych affect normal Assessment & Plan Assessment/Plan (1) Cellulitis of foot, left: (2) Abscess of left foot: PLAN: Plan #Left foot Diabetic foot infection * S/p left transmetatarsal amputation.? Today's postop day 3. * Management as per primary team podiatry. 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 Insulin sliding scale.? Accu-Cheks ACHS. * Id on board. * wound cultures growing Staph epidermidis and Pseudomonas aeruginosa. * blood cultures growing coagulase negative Staph * * #Hypertension: On losartan #Hyperlipidemia: On statin #ESRD: Has a history of renal transplant.? On mycophenolate and Envarsus as wellas prednisone.? Will trend creatinine. #Depression: On Wellbutrin ?#DVT prophylaxis: As per primary team; on heparin Total time spent seeing patient and examining [id number], review of chart, reviewing specialist notes, discussion of plan of care with patient and ancillary staff as well as documentation in EMR: 33 minutes. Charges/Coding Visit Charges Inpatient E&M: 05055 Subs Hosp L2 11/04/22 1537 <Electronically signed by Shruti Jara MD> Shruti Jara MD Cosigner Signature (if applicable): CC: ~ Signed [facility] Work Phone: 1(418) 477-321302-26-[address] Niño [facility] November 04, 2022 9:00am Note Date/Time November 04, 2022 9:00am [facility] Medical Records Department [address] [place] [address] Progress Note 11/04/22 0859 MR#: [id number] Acct: [id number] Name: ITALO BURGOS Rep #:[id number] : 1970 51 From: Gerhard Niño DPM PCP: Dr. Zaida Gaston MD Status:ADM I N Location: [place] [id number] Subjective Subjective Patient was seen this morning. He is sitting up in bed eating breakfast. He denies any f/c/n/v/sob/cp/calf pain. Objective Data Objective Data Vital Signs: Vital Signs Temp Pulse Resp BP Pulse Ox O2 Del Method O2 Flow Rate 97.7 F L 87 16 124/77 H 93 Room Air 2 11/04/22 02:33 11/04/22 02:33 11/04/22 02:33 11/04/22 02:33 11/04/22 02:33 11/04/22 02:33 11/01/22 17:43 Oxygen Flow Rate (L/min) 2 Oxygen Delivery Method Room Air Weight: 108.409 kg Body Mass Index (BMI) 80.3 Intake & Output: Intake and Output for Last 24 Hours 11/02/22 11/03/22 11/04/22 23:59 23:59 23:59 Intake Total 1720 / 1720 1300 / 1300 50 / 50 Balance 1720 / 1720 1300 / 1300 50 / 50 Lab / Micro Data Result Diagrams: 11/04/22 04:39 11/03/22 09:44 Labs: Laboratory Results - last 24 hr 11/03/22 09:44: WBC 8.3, RBC 4.85, Hgb 14.7, Hct 46.0, MCV 94.8 H, MCH 30.3, MCHC 32.0, RDW Std Deviation 45.6 H, RDW Coeff of Tomy 13.0, Plt Count 184, MPV 9.8, Immature Gran % (Auto) 0.200, Neut % (Auto) 71.4 H, Lymph % (Auto) 18.4 L, Campbell % (Auto) 9.0, Eos % (Auto) 0.8, Baso % (Auto) 0.2, Absolute Neuts (auto) 5.9, Absolute Lymphs (auto) 1.53, Nucleated RBC % 0 11/03/22 09:44: Sodium 142, Potassium 4.5, Chloride 114 H, Carbon Dioxide 22.0, Anion Gap 6, BUN 44 H, Creatinine 1.62 H, Estim Creat Clear Calc 51.02, Est GFR (MDRD) Af Amer 57 L, Est GFR (MDRD) Non-Af 47 L, BUN/Creatinine Ratio 27.2 H, Glucose 193 H, Calcium 9.3 11/03/22 19:32: Vancomycin Trough 21.1 H 11/04/22 04:39: C-React Prot Ext Range 8.08 H 11/04/22 04:39: WBC 6.2, RBC 4.62, Hgb 14.2, Hct 44.1, MCV 95.5 H, MCH 30.7, MCHC 32.2, RDW Std Deviation 45.1 H, RDW Coeff of Tomy 12.9, Plt Count 184, MPV 10.1, Immature Gran % (Auto) 0.300, Neut % (Auto) 61.4, Lymph % (Auto) 26.5, Campbell % (Auto) 10.5 H, Eos % (Auto) 0.8, Baso % (Auto) 0.5, Absolute Neuts (auto)3.8, Absolute Lymphs (auto) 1.64, Nucleated RBC % 0 Micro: Microbiology 11/01/22 14:13 Amputation - Toe Gram Stain - Final 11/01/22 14:13 Amputation - Toe Wound Culture - Preliminary Staphylococcus epidermidis GNR lactose metal patternmaker apprentice 11/01/22 14:40 Incision/Surgical Site Gram Stain - Final 11/01/22 14:40 Incision/Surgical Site Wound Culture - Preliminary No growth-Final to follow 11/01/22 14:40 Incision/Surgical Site Anaerobic Culture - Preliminary No growth in 48 hours. 11/01/22 09:50 Blood Culture (Wb) - Left Hand Blood Culture - Preliminary No growth in 48 hours. 11/01/22 09:49 Blood Culture (Wb) - Anticubital Left Bacteria Detection (PCR) - Final Coag Negative Staph 11/01/22 09:49 Blood Culture (Wb) - Anticubital Left Blood Culture - Preliminary Coag Negative Staph 11/01/22 11:30 Nasal Secretion SARS-CoV-2 Antigen (Rapid) - Final Physical Exam Narrative Patient alert oriented x3. Vascular: Dorsalis pedis posterior tibial pulses palpable 2 out of 4 to bilateral lower extremity. Diffuse edema to left forefoot. Neurologic: Light touch protective sensation absent to foot. Dermatologic: Left foot s/p TMA with sutures intact, no dehiscence - minimal to no erythema, overall bleeding controlled. No visible abscess, on fluctuance, no crepitus, no necrosis. Musculoskeletal: s/p TMA in good position. No evidence of compartment syndrome. Assessment & Plan Assessment/Plan (1) Type 2 diabetes mellitus with left diabetic foot infection: (2) Non-pressure chronic ulcer of other part of left foot with necrosis of bone: (3) Type 2 diabetes mellitus with diabetic polyneuropathy: (4) Osteomyelitis of foot, left, acute: PLAN: Plan s/p left foot TMA on 11/01/22- site looks good. Bld Cx with coag neg staph - patient on Vancomycin and Zosyn. Continue to follow cultures. ID/Dr. Nava on consult. Changed dressing - 4x4 gauze, kerlix, and tom. Keep clean, dry and intact. No weightbearing left foot. Keep left foot elevated. Hospital medicine on consult - appreciate assistance. D/c home once final antibiotics determined. 11/04/22 0900 <Electronically signed by Gerhard Niño DPM> Gerhard Niño DPM Cosigner Signature (if applicable): CC: ~ Signed [facility] Work Phone: 1(540) 918-110502-26-[address] Jara [facility] November 04, 2022 7:27am Note Date/Time November 03, 2022 1:31pm [facility] Medical Records Department [address] [place] [address] Progress Note - Hospitalist 11/03/22 1320 MR#: [id number] Acct: [id number] Name: ITALO BURGOS Rep #:[id number] : 1970 51 From: Shruti Jara MD PCP: Dr. Zaida Gaston MD Status:ADM I N Location: [place] [address]-1 Reason for Visit Reason for Visit: Diagnoses Type 2 diabetes mellitus with diabetic polyneuropathy (11/01/22) Type 2 diabetes mellitus with other skin complications (11/01/22) Cutaneous abscess of left foot (11/01/22) Cellulitis of left lower limb (11/01/22) Local infection of the skin and subcutaneous tissue, unspecified (11/01/22) Non-pressure chronic ulcer of other part of left foot with necrosis of bone (11/01/22) Other acute osteomyelitis, left ankle and foot (11/01/22) Kidney transplant status (11/01/22) Subjective Subjective Patient seen and examined. He had no active complains and had an uneventful night. Review of systems is otherwise negative. Blood cultures positive for coagulase negative staph and wound cultures are growing Staph epidermidis and Pseudomonas aeruginosa. Objective Data Objective Data Vital Signs: Vital Signs Temp Pulse Resp BP Pulse Ox O2 Del Method O2 Flow Rate 97.8 F 81 16 131/51 H 97 Room Air 2 11/03/22 08:30 11/03/22 08:30 11/03/22 08:30 11/03/22 08:30 11/03/22 08:30 11/03/22 08:30 11/01/22 17:43 Oxygen Flow Rate (L/min) 2 Oxygen Delivery Method Room Air Weight: 239 lb 0.015 oz Body Mass Index (BMI) 80.3 Intake & Output: Intake and Output for Last 24 Hours 11/01/22 11/02/22 11/03/22 23:59 23:59 23:59 Intake Total 2490.75 / 2490.75 1720 / 1720 975 / 975 Output Total 700 / 700 Balance 1790.75 / 1790.75 1720 / 1720 975 / 975 Lab / Micro Data Result Diagrams: 11/03/22 09:44 11/03/22 09:44 Labs: Laboratory Results - last 24 hr 11/03/22 05:09: C-React Prot Ext Range 11.30 H 11/03/22 09:44: WBC 8.3, RBC 4.85, Hgb 14.7, Hct 46.0, MCV 94.8 H, MCH 30.3, MCHC 32.0, RDW Std Deviation 45.6 H, RDW Coeff of Tomy 13.0, Plt Count 184, MPV 9.8, Immature Gran % (Auto) 0.200, Neut % (Auto) 71.4 H, Lymph % (Auto) 18.4 L, Campbell % (Auto) 9.0, Eos % (Auto) 0.8, Baso % (Auto) 0.2, Absolute Neuts (auto) 5.9, Absolute Lymphs (auto) 1.53, Nucleated RBC % 0 11/03/22 09:44: Sodium 142, Potassium 4.5, Chloride 114 H, Carbon Dioxide 22.0, Anion Gap 6, BUN 44 H, Creatinine 1.62 H, Estim Creat Clear Calc 51.02, Est GFR (MDRD) Af Amer 57 L, Est GFR (MDRD) Non-Af 47 L, BUN/Creatinine Ratio 27.2 H, Glucose 193 H, Calcium 9.3 Micro: Microbiology 11/01/22 09:50 Blood Culture (Wb) - Left Hand Blood Culture - Preliminary No growth in 48 hours. 11/01/22 09:49 Blood Culture (Wb) - Anticubital Left Bacteria Detection (PCR) - Final Coag Negative Staph 11/01/22 09:49 Blood Culture (Wb) - Anticubital Left Blood Culture - Preliminary Coag Negative Staph 11/01/22 14:13 Amputation - Toe Gram Stain - Final 11/01/22 14:13 Amputation - Toe Wound Culture - Preliminary Staphylococcus species GNR lactose metal patternmaker apprentice 11/01/22 14:40 Incision/Surgical Site Gram Stain - Final 11/01/22 14:40 Incision/Surgical Site Wound Culture - Preliminary No growth-Final to follow 11/01/22 11:30 Nasal Secretion SARS-CoV-2 Antigen (Rapid) - Final Physical Exam Const alert, oriented x3 and no apparent distress HEENT head/scalp atraumatic, moist oral mucous membranes and oropharynx normal Head and Scalp: normocephalic Mouth: oral and palatal mucosa normal Eyes PERRL, EOMs intact bilaterally and conjunctivae normal Neck no lymphadenopathy, supple and no JVD Resp normal respiratory effort, no retractions, no use of accessory muscles and clearto auscultation bilaterally Cardio regular rate, regular rhythm, S1 normal heart sound, S2 normal heart sound and no murmurs GI normal to inspection, nondistended, normoactive bowel sounds, soft to palpation,non-tender and non-distended Extremity Extremity Narrative: Left foot bandaged. Skin Skin Narrative: Left foot bandaged. Neuro oriented x3, CN's II-XII intact bilaterally and moves all extremities Sensorium / Orientation: awake and alert Psych affect normal Assessment & Plan Assessment/Plan (1) Cellulitis of foot, left: (2) Abscess of left foot: PLAN: Plan #Left foot Diabetic foot infection * S/p left transmetatarsal amputation.? Today's postop day 2. * Management as per primary team podiatry. 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 Insulin sliding scale.? Accu-Cheks ACHS. * Id on board. * wound cultures growing Staph epidermidis and Pseudomonas aeruginosa. * blood cultures growing coagulase negative Staph * * #Hypertension: On losartan #Hyperlipidemia: On statin #ESRD: Has a history of renal transplant.? On mycophenolate and Envarsus as wellas prednisone.? Will trend creatinine. #Depression: On Wellbutrin ?#DVT prophylaxis: As per primary team; on heparin Thank you for the courtesy of the consult.? We will continue to follow with you. Total time spent seeing patient and examining [id number], review of chart, reviewing specialist notes, discussion of plan of care with patient and ancillary staff as well as documentation in EMR: 35 minutes. Charges/Coding Visit Charges Inpatient E&M: 59766 Subs Hosp L2 11/04/22 0727 <Electronically signed by Shruti Jara MD> Cosigner Signature (if applicable): CC: ~ Signed [facility] Work Phone: 1(625) 784-922402-26-2023 Consult note Author Aj Costello [facility] November 04, 2022 12:41am Note Date/Time November 04, 2022 12:41am [facility] Medical Records Department [address] [place] [address] Pharmacokinetic/Renal -Consult 11/04/22 0040 MR#: [id number] Acct: [id number] Name: ITALO BURGOS Rep #:[id number] : 1970 51 From: Aj Fields od PCP: Dr. Zaida Gaston MD Status:ADM I N Y Location: [place] [address]1 Consult Pharmacy has been consulted to manage selected antiobiotic: Vancomycin Type of Consult: Follow-up Labs: Sodium 142 mmol/L (136-145) 11/03/22 09:44 Potassium 4.5 mmol/L (3.5-5.1) 11/03/22 09:44 Chloride 114 mmol/L (98-107) H 11/03/22 09:44 Carbon Dioxide 22.0 mmol/L (21.0-32.0) 11/03/22 09:44 Anion Gap 6 (5-15) 11/03/22 09:44 BUN 44 mg/dL (7-18) H 11/03/22 09:44 Creatinine 1.62 mg/dL (0.70-1.30) H 11/03/22 09:44 Est GFR (MDRD) Af Amer 57 mL/min (>60) L 11/03/22 09:44 Est GFR (MDRD) Non-Af 47 mL/min (>60) L 11/03/22 09:44 BUN/Creatinine Ratio 27.2 RATIO (10-20) H 11/03/22 09:44 Glucose 193 mg/dL (74-106) H 11/03/22 09:44 Vancomycin Trough 21.1 ug/mL (5.0-15.0) H 11/03/22 19:32 Microbiology: Microbiology 11/01/22 14:40 Incision/Surgical Site Gram Stain - Final 11/01/22 14:40 Incision/Surgical Site Wound Culture - Preliminary No growth-Final to follow 11/01/22 14:40 Incision/Surgical Site Anaerobic Culture - Preliminary No growth in 48 hours. 11/01/22 14:13 Amputation - Toe Gram Stain - Final 11/01/22 14:13 Amputation - Toe Wound Culture - Preliminary Staphylococcus species GNR lactose metal patternmaker apprentice 11/01/22 14:13 Amputation - Toe Anaerobic Culture - Preliminary 11/01/22 09:50 Blood Culture (Wb) - Left Hand Blood Culture - Preliminary No growth in 48 hours. 11/01/22 09:49 Blood Culture (Wb) - Anticubital Left Bacteria Detection (PCR) - Final Coag Negative Staph 11/01/22 09:49 Blood Culture (Wb) - Anticubital Left Blood Culture - Preliminary Coag Negative Staph 11/01/22 11:30 Nasal Secretion SARS-CoV-2 Antigen (Rapid) - Final Goal Trough: 15-20 mcg/mL Pharmacy Plan for Drug Dosing: Pharmacy Service will continue to monitor and adjust dosing as required. TROUGH 21.1 @ 11.5 HRS. HOLD NEXT DOSE AND FOLLOW UP LEVEL IN 18 HRS Follow-Up Labs: Trough Vancomycin Labs to be done on [date and time ordered]: 11/04 @ 1330 11/04/22 0041 <Electronically signed by Aj matthews > Date _ Aj Costello Cosigner Signature (if applicable): Date CC: ~ Signed [facility] Work Phone: 1(436) 506-951402-25-[address] Niño [facility] November 03, 2022 9:22am Note Date/Time November 03, 2022 8:56am [facility] Medical Records Department [address] [place] [address] Progress Note 11/03/22 0856 MR#: [id number] Acct: [id number] Name: ITALO BURGOS Mery Rep #:[id number] : 1970 51 From: Gerhard Niño DPM PCP: Dr. Zaida Gaston MD Status:ADM I N Location: [place] [id number] Subjective Subjective Patient was seen this morning for left foot. He is sitting up in chair with footpropped up. He is eating breakfast. No f/c/n/v/sob/chest pain or calf pain. Objective Data Objective Data Vital Signs: Vital Signs Temp Pulse Resp BP Pulse Ox O2 Del Method O2 Flow Rate 97.8 F 81 16 131/51 H 97 Room Air 2 11/03/22 08:30 11/03/22 08:30 11/03/22 08:30 11/03/22 08:30 11/03/22 08:30 11/03/22 08:30 11/01/22 17:43 Oxygen Flow Rate (L/min) 2 Oxygen Delivery Method Room Air Weight: 108.409 kg Body Mass Index (BMI) 80.3 Intake & Output: Intake and Output for Last 24 Hours 11/01/22 11/02/22 11/03/22 23:59 23:59 23:59 Intake Total 2490.75 / 2490.75 1720 / 1720 650 / 650 Output Total 700 / 700 Balance 1790.75 / 1790.75 1720 / 1720 650 / 650 Lab / Micro Data Result Diagrams: 11/02/22 04:29 11/02/22 04:29 Labs: Laboratory Results - last 24 hr 11/01/22 12:02: Urine Color Yellow, Urine Clarity Clear, Urine pH 6.0, Ur Specific [place] 1.030, Urine Protein Negative, Urine Glucose (UA) 1000 H, UrineKetones Negative, Urine Occult Blood 10 H, Urine Nitrite Negative, Urine Bilirubin Negative, Urine Urobilinogen 1 H, Ur Leukocyte Esterase Negative, Urine RBC 0 SEEN, Urine WBC 0 SEEN, Ur Squamous Epith Cells 0 SEEN, Urine Bacteria 0 SEEN, Urine Mucus 0 SEEN 11/03/22 05:09: C-React Prot Ext Range 11.30 H Micro: Microbiology 11/01/22 09:50 Blood Culture (Wb) - Left Hand Blood Culture - Preliminary No growth in 48 hours. 11/01/22 09:49 Blood Culture (Wb) - Anticubital Left Bacteria Detection (PCR) - Final Coag Negative Staph 11/01/22 09:49 Blood Culture (Wb) - Anticubital Left Blood Culture - Preliminary Coag Negative Staph 11/01/22 14:13 Amputation - Toe Gram Stain - Final 11/01/22 14:13 Amputation - Toe Wound Culture - Preliminary Staphylococcus species GNR lactose metal patternmaker apprentice 11/01/22 14:40 Incision/Surgical Site Gram Stain - Final 11/01/22 14:40 Incision/Surgical Site Wound Culture - Preliminary No growth-Final to follow 11/01/22 11:30 Nasal Secretion SARS-CoV-2 Antigen (Rapid) - Final Physical Exam Narrative Patient alert oriented x3. Vascular: Dorsalis pedis posterior tibial pulses palpable 2 out of 4 to bilateral lower extremity. Diffuse edema to left forefoot. Neurologic: Light touch protective sensation absent to foot. Dermatologic: Left foot s/p TMA with sutures intact, no dehiscence - minimal to no erythema, overall bleeding controlled. No visible abscess, on fluctuance, no crepitus, no necrosis. Musculoskeletal: s/p TMA in good position. No evidence of compartment syndrome. Assessment & Plan Assessment/Plan (1) Type 2 diabetes mellitus with left diabetic foot infection: (2) Non-pressure chronic ulcer of other part of left foot with necrosis of bone: (3) Type 2 diabetes mellitus with diabetic polyneuropathy: (4) Osteomyelitis of foot, left, acute: PLAN: Plan s/p left foot TMA on 11/01/22- site looks good. Bld Cx with coag neg staph - patient on Vancomycin and Zosyn. Continue to follow cultures. ID/Dr. Nava on consult. Changed dressing - 4x4 gauze, kerlix, and tom. Keep clean, dry and intact. No weightbearing left foot. Keep left foot elevated. Hospital medicine on consult - appreciate assistance. D/c home once final antibiotics determined. 11/03/22919 <Electronically signed by Gerhard Niño DPM> Gerhard Niño DPM Cosigner Signature (if applicable): CC: ~ Signed ADDENDUM by IRIS Niño on 11/03/22 at 0922 Addendum DVT Prophylaxis: Heparin 5,000 units q 12 hr 11/03/22921 <Electronically signed by Gerhard colin DPM> Date _ Gerhard Niño DPM Cosigner Signature (if applicable): Date cc: ~* Signed [facility] Work Phone: 1(853) 128-945002-24-[address] Jara [facility] November 02, 2022 4:56pm Note Date/Time November 01, 2022 11:04am [facility] Medical Records Department [address] [place] [address] Progress Note - Hospitalist 11/01/22 1104 MR#: [id number] Acct: [id number] Name: ITALO BURGOS Rep #:[id number] : 1970 51 From: Shruti Jara MD PCP: Dr. Zaida Gaston MD Status:ADM I N Location: MS3 [id number] Reason for Visit Reason for Visit: Diagnoses Type 2 diabetes mellitus with diabetic polyneuropathy (11/01/22) Type 2 diabetes mellitus with other skin complications (11/01/22) Cutaneous abscess of left foot (11/01/22) Cellulitis of left lower limb (11/01/22) Local infection of the skin and subcutaneous tissue, unspecified (11/01/22) Non-pressure chronic ulcer of other part of left foot with necrosis of bone (11/01/22) Subjective Subjective ITALO BURGOS, is a 51 M with a PMH as outlined who presents via [facility] ED on 11/01/2022 with a complaitn of left third and fourth toe infection. HE follows with podiatry and wound clinic for osteomyeltis of left foot as well as diabeticfoot ulcer of hte left foot. 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 He has been following up at Wound care but the wound has not been healing well. He noted that he had redness and swelling of the left 3rd and 4th toes 2 days prior to admission. He denied any fever, chills or any discharge from the foot. He also complained of pain in his foot with walking a bit of a distance, ~ 1-2 blocks. Review of ssyems was otherwise negative Vitals in the ED were MI of 81, RR of 16 and oxygen sats of 96% on room air. Temp was 97.6F. CBC was unremarkable. BMP was significant for potassium of 5.2 and Cr of 1.63. CRP was 10.8. CXR showed cardiomegaly. but no acute cardiopulmonary process. Foot xarey showed diffuse soft tissue swelling and findings suggestive of ulceration overlying overlying the distal aspect of hte 4th metatarsal.Podiatry evaluated patient and he was taken to the OR where he had left transmetatarsal amputation> Hospitalist service was consulted for medical management. Objective Data Objective Data Vital Signs: Vital Signs Temp Pulse Resp BP Pulse Ox O2 Del Method 97.6 F L 81 16 166/79 H 96 Room Air 11/01/22 09:42 11/01/22 10:26 11/01/22 10:26 11/01/22 09:42 11/01/22 10:26 11/01/22 10:26 Oxygen Delivery Method Room Air Weight: 528 lb 3.641 oz Body Mass Index (BMI) 80.3 Lab / Micro Data Result Diagrams: 11/01/22 09:49 11/01/22 09:49 Labs: Laboratory Results - last 24 hr 11/01/22 09:49: WBC 6.4, RBC 5.23, Hgb 15.9, Hct 49.7, MCV 95.0 H, MCH 30.4, MCHC 32.0, RDW Std Deviation 44.9 H, RDW Coeff of Tomy 12.7, Plt Count 199, MPV 9.9, Immature Gran % (Auto) 0.500, Neut % (Auto) 67.5, Lymph % (Auto) 21.1, Campbell% (Auto) 9.7, Eos % (Auto) 0.9, Baso % (Auto) 0.3, Absolute Neuts (auto) 4.3, Absolute Lymphs (auto) 1.35, Nucleated RBC % 0, ESR 10 11/01/22 09:49: PT 13.4, INR 1.1, APTT 28.9 11/01/22 09:49: Sodium 139, Potassium 5.2 H, Chloride 108 H, Carbon Dioxide 25.0, Anion Gap 6, BUN 37 H, Creatinine 1.63 H, Estim Creat Clear Calc 50.71, Est GFR (MDRD) Af Amer 57 L, Est GFR (MDRD) Non-Af 47 L, BUN/Creatinine Ratio 22.7 H, Glucose 266 H, Calcium 9.6, Total Bilirubin 0.50, AST 23, ALT 41, Alkaline Phosphatase 156 H, C-React Prot Ext Range 10.80 H, Total Protein 7.2, Albumin 3.5, Globulin 3.7, Albumin/Globulin Ratio 0.9 11/01/22 09:49: Lactic Acid 1.4 11/01/22 10:39: POC Glucose 264 H Radiography Diagnostic Testing: Radiology Impression Foot X-Ray 11/01/22 09:42 IMPRESSION: Status post resection of the distal portion of the fifth metatarsal as well as the fifth toe. Partial resection of the distal aspect of the fourth metatarsal and proximal base of the fourth toe. Diffuse soft tissue swelling. Findings suggestive of a an ulceration overlying the distal aspect of the fourth metatarsal. Vascular calcification. Electronically Signed: Tristan France MD at 10:25 EST , Chest X-Ray 11/01/22 10:05 IMPRESSION: Cardiomegaly. The lungs are clear. Electronically Signed: Tristan France MD at 10:30 EST , Physical Exam Const alert, oriented x3 and no apparent distress HEENT head/scalp atraumatic, moist oral mucous membranes and oropharynx normal Head and Scalp: normocephalic Mouth: oral and palatal mucosa normal Neck no lymphadenopathy and supple Resp normal respiratory effort, no retractions, no use of accessory muscles and clearto auscultation bilaterally Cardio regular rate, regular rhythm, S1 normal heart sound and S2 normal heart sound GI normal to inspection, nondistended, normoactive bowel sounds, soft to palpation,non-tender and non-distended Extremity Extremity Narrative: left foot wrapped in bandage Neuro oriented x3, CN's II-XII intact bilaterally, moves all extremities and no focal motor deficits Sensorium / Orientation: awake and alert Motor Exam: strength 5/5 throughout Psych affect normal Assessment & Plan Assessment/Plan (1) Osteomyelitis of foot, left, acute: (2) Type 2 diabetes mellitus with left diabetic foot infection: PLAN: Plan #Left foot Diabetic foot infection * S/p left transmetatarsal amputation. Today's postop day 0. * Management as per primary team podiatry. 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 Insulin sliding scale. Accu-Cheks ACHS. * #Hypertension: On losartan #Hyperlipidemia: On statin #ESRD: Has a history of renal transplant. On mycophenolate and Envarsus as wellas prednisone. Will trend creatinine. #Depression: On Wellbutrin #DVT prophylaxis: As per primary team Thank you for the courtesy of the consult. We will continue to follow with you. Total time spent seeing patient and examining [id number], review of chart, reviewing specialist notes, discussion of plan of care with patient and ancillary staff as well as documentation in EMR: 45 minutes. Charges/Coding Visit Charges Inpatient E&M: 35329 Subs Hosp L3 11/02/22 1656 <Electronically signed by Shruti Jara MD> Cosigner Signature (if applicable): CC: ~ Signed [facility] Work Phone: [phone]) 950-425502-24-[address] Jara [facility] November 02, 2022 4:56pm Note Date/Time November 02, 2022 12:46pm [facility] Medical Records Department [address] [place] [address] Progress Note - Hospitalist 11/02/22 1245 MR#: [id number] Acct: [id number] Name: ITALO BURGOS Rep #:[id number] : 1970 51 From: Shruti Jara MD PCP: Dr. Zaida Gaston MD Status:ADM I N Location: [place] [address] Reason for Visit Reason for Visit: Diagnoses Type 2 diabetes mellitus with diabetic polyneuropathy (11/01/22) Type 2 diabetes mellitus with other skin complications (11/01/22) Cutaneous abscess of left foot (11/01/22) Cellulitis of left lower limb (11/01/22) Local infection of the skin and subcutaneous tissue, unspecified (11/01/22) Non-pressure chronic ulcer of other part of left foot with necrosis of bone (11/01/22) Other acute osteomyelitis, left ankle and foot (11/01/22) Kidney transplant status (11/01/22) Subjective Subjective Patient seen and examined. He had no complaints today. He had an uneventful night and review of systems otherwise negative. He has remained hemodynamically stable. Objective Data Objective Data Vital Signs: Vital Signs Temp Pulse Resp BP Pulse Ox O2 Del Method O2 Flow Rate 98.1 F 80 18 142/73 H 97 Room Air 2 11/02/22 07:56 11/02/22 07:56 11/02/22 07:56 11/02/22 07:56 11/02/22 07:56 11/02/22 07:56 11/01/22 17:43 Oxygen Flow Rate (L/min) 2 Oxygen Delivery Method Room Air Weight: 239 lb 0.015 oz Body Mass Index (BMI) 80.3 Intake & Output: Intake and Output for Last 24 Hours 10/31/22 11/01/22 11/02/22 23:59 23:59 23:59 Intake Total 2490.75 / 2490.75 1035 / 1035 Output Total 700 / 700 Balance 1790.75 / 1790.75 1035 / 1035 Lab / Micro Data Result Diagrams: 11/02/22 04:29 11/02/22 04:29 Labs: Laboratory Results - last 24 hr 11/01/22 12:02: Urine Color Yellow, Urine Clarity Clear, Urine pH 6.0, Ur Specific [place] 1.030, Urine Protein Negative, Urine Glucose (UA) 1000 H, UrineKetones Negative, Urine Occult Blood 10 H, Urine Nitrite Negative, Urine Bilirubin Negative, Urine Urobilinogen 1 H, Ur Leukocyte Esterase Negative, Urine RBC 0 SEEN, Urine WBC 0 SEEN, Ur Squamous Epith Cells 0 SEEN, Urine Bacteria 0 SEEN, Urine Mucus 0 SEEN 11/01/22 14:40: POC Glucose 222 H 11/01/22 20:17: POC Glucose 372 H 11/02/22 04:29: WBC 10.7, RBC 5.09, Hgb 15.6, Hct 47.5, MCV 93.3, MCH 30.6, MCHC32.8, RDW Std Deviation 43.4, RDW Coeff of Tomy 12.7, Plt Count 179, MPV 10.5, Immature Gran % (Auto) 0.400, Neut % (Auto) 82.7 H, Lymph % (Auto) 9.3 L, Campbell %(Auto) 7.5, Eos % (Auto) 0.0, Baso % (Auto) 0.1, Absolute Neuts (auto) 8.9 H, Absolute Lymphs (auto) 0.99, Nucleated RBC % 0 11/02/22 04:29: Sodium 137, Potassium 4.9, Chloride 110 H, Carbon Dioxide 22.0, Anion Gap 5, BUN 37 H, Creatinine 1.48 H, Estim Creat Clear Calc 55.84, Est GFR (MDRD) Af Amer 64, Est GFR (MDRD) Non-Af 53 L, BUN/Creatinine Ratio 25.0 H, Glucose 251 H, Calcium 9.3, C-React Prot Ext Range 13.70 H 11/02/22 06:22: POC Glucose 211 H Micro: Microbiology 11/01/22 14:40 Incision/Surgical Site Gram Stain - Final 11/01/22 14:40 Incision/Surgical Site Wound Culture - Preliminary No growth-Final to follow 11/01/22 14:13 Amputation - Toe Gram Stain - Final 11/01/22 14:13 Amputation - Toe Wound Culture - Preliminary Gram positive organism 11/01/22 09:49 Blood Culture (Wb) - Anticubital Left Bacteria Detection (PCR) - Final Coag Negative Staph 11/01/22 09:49 Blood Culture (Wb) - Anticubital Left Blood Culture - Preliminary 11/01/22 11:30 Nasal Secretion SARS-CoV-2 Antigen (Rapid) - Final Radiography Diagnostic Testing: Radiology Impression Foot X-Ray 11/01/22 11:52 IMPRESSION: Intraoperative images provided for transmetatarsal amputation. Electronically Signed: Tristan France MD at 15:14 EST , Physical Exam Const alert, oriented x3 and no apparent distress HEENT head/scalp atraumatic, moist oral mucous membranes and oropharynx normal Head and Scalp: normocephalic Mouth: oral and palatal mucosa normal Neck no lymphadenopathy, supple and no JVD Resp normal respiratory effort, no retractions, no use of accessory muscles and clearto auscultation bilaterally Cardio regular rate, regular rhythm, S1 normal heart sound, S2 normal heart sound and no murmurs GI normal to inspection, nondistended, normoactive bowel sounds, soft to palpation,non-tender and non-distended Extremity Extremity Narrative: Left foot bandaged. Skin Skin Narrative: Left foot bandaged. Neuro oriented x3, CN's II-XII intact bilaterally and moves all extremities Sensorium / Orientation: awake and alert Psych affect normal Assessment & Plan Assessment/Plan (1) Cellulitis of foot, left: (2) Abscess of left foot: PLAN: Plan #Left foot Diabetic foot infection * S/p left transmetatarsal amputation.? Today's postop day 1. * Management as per primary team podiatry. 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 Insulin sliding scale.? Accu-Cheks ACHS. * ID consulted. surgical cultures growing gram positive cocci. * * #Hypertension: On losartan #Hyperlipidemia: On statin #ESRD: Has a history of renal transplant.? On mycophenolate and Envarsus as wellas prednisone.? Will trend creatinine. #Depression: On Wellbutrin ?#DVT prophylaxis: As per primary team Thank you for the courtesy of the consult.? We will continue to follow with you. Total time spent seeing patient and examining [id number], review of chart, reviewing specialist notes, discussion of plan of care with patient and ancillary staff as well as documentation in EMR: 40 minutes. Charges/Coding Visit Charges Inpatient E&M: 44338 Subs Hosp L2 11/02/22 1656 <Electronically signed by Shruti Jara MD> Cosigner Signature (if applicable): CC: ~ Signed [facility] Work Phone: [phone]) [phone] Nava [facility] November 02, 2022 11:56am Note Date/Time November 02, 2022 11:56am [facility] Medical Records Department [address] [place] [address] Consultation - Infectious Dx 11/02/22 1149 MR#: [id number] Acct: [id number] Name: ITALO BURGOS Mery Rep #:[id number] : 1970 51 From: Satish cochran MD PCP: Dr. Zaida Gaston MD Status:ADM I N Location: [place] [address] Assessment & Plan Assessment/Plan (1) Osteomyelitis of foot, left, acute: PLAN: Now s/p TMA 11/01/[address] Levy. 1 of 2 bcx with CoNS. Surg cx with gram pos growing so far. Wound cx 10/25/22 with MRSE and PsA. On vanc, will addzosyn for pseudomonas and anaerobic coverage. If margins are clear and other bcx remains neg, plan would be for po doxy 100mg bid and po cipro 500mg bid at discharge for 1-2 weeks. Will follow, thank you (2) Type 2 diabetes mellitus with diabetic polyneuropathy: (3) Renal transplant recipient: HPI Consult Data Date of Consult: 11/02/22 HPI Narrative Reason for Consultation: foot infection HPI Narrative: ITALO BURGOS, is a 51 M with renal transplant 2020, DM neuropathy, recurrent foot osteo, presented 11/01 with 2-3 days worsening L foot blistering then necrosis. No pain in foot, no fever or chills. Had been on recent course of doxy for foot infection, cx at wound center with MRSE and PsA on 10/25. L lateral toes with swelling, discoloration, drainage. Seen in wound center 11/01,sent to ED, had TMA done by Dr. Levy that day. Feeling ok this Am. Full ROS performed and neg except as noted above. [facility] Medical History Acute hypoxemic respiratory failure Acute on chronic diastolic CHF (congestive heart failure) Acute respiratory failure with hypoxia ILDA (acute kidney injury) Anasarca associated with disorder of kidney Anemia of chronic renal failure, stage 4 (severe) Anxiety and depression Atherosclerotic heart disease of [place] coronary artery without angina pectoris Autonomic neuropathy Blind left eye Cellulitis and abscess of right leg Cellulitis of left lower limb Chewing tobacco nicotine dependence Chronic renal failure, stage 4 (severe) Chronic renal failure, stage 5 Chronic ulcer of 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 Congestive heart failure (CHF) COVID-19 COVID-19 Diabetes mellitus type II, uncontrolled Diabetic foot infection Diabetic foot ulcer Diabetic nephropathy Diabetic neuropathy Diabetic retinopathy Dyspnea Essential hypertension Fistula (~12/2018) Gas gangrene of foot GERD (gastroesophageal reflux disease) History of acute myocardial infarction History of left heart catheterization (LHC) (~06/26/11) HLD (hyperlipidemia) Hypertensive emergency Hypoglycemia Hypokalemia Hypoxemia Kidney failure Kidney stones Necrotizing fasciitis 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 exposed Noncompliance Obesity (BMI 30-39.9) Pneumonia Problem with dialysis access Pulmonary edema Respiratory failure Retention, urine Right leg pain 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 Vision problems Home Medications insulin lispro 100 unit/mL subcutaneous pen 16 unit SQ TID blood sugar 10/06/19 [History Last Taken 10/31/22] insulin glargine 100 unit/mL (3 mL) subcutaneous pen 44 unit subcut DAILY blood sugar 08/11/20 [History Last Taken 10/31/22] docusate sodium 100 mg capsule (Colace) 100 mg PO DAILY constipation 09/18/21 [History Last Taken 10/28/22] pantoprazole 20 mg tablet,delayed release (Protonix) 20 mg PO DAILY gerd 09/18/21 [History Last Taken 11/01/22 07:00] prednisone 5 mg tablet 5 mg PO DAILY steroid 09/18/21 [History Last Taken 11/01/22 07:00] tacrolimus 1 mg tablet,extended release 24 hr (Envarsus XR) 1 mg PO DAILY rejection med 09/18/21 [History Last Taken 11/01/22 07:00] carvedilol 25 mg tablet 25 mg PO BID HEART 12/26/21 [History Last Taken 11/01/22 07:00] cholecalciferol (vitamin D3) 25 mcg (1,000 unit) capsule (Vitamin D3) 50 mcg PO FR SUPPLEMENT' 12/26/21 [History Last Taken 10/26/22] losartan 25 mg tablet 25 mg PO DAILY BP 09/05/22 [History Last Taken 11/01/22 07:00] sulfamethoxazole 400 mg-trimethoprim 80 mg tablet 1 tablet PO DAILY INFECTION 09/05/22 [History Last Taken 11/01/22 07:00] acetaminophen 500 mg tablet 1,000 mg PO Q4H PRN Pain 11/01/22 [History Last Taken 10/31/22] aspirin 81 mg chewable tablet 81 mg PO DAILY HEALTH 11/01/22 [History Last Taken 11/01/22 07:00] bupropion HCl 300 mg 24 hr tablet, extended release 300 mg PO DAILY MOOD 11/01/22 [History Last Taken 11/01/22 07:00] gabapentin 100 mg capsule 100 mg PO QHS NERVE PAIN 11/01/22 [History Last Taken 10/31/22] Allergy/AdvReac Type Severity Reaction Status Date / Time No Known Allergies Allergy Verified 10/18/22 09:18 Family History Mother Heart disease Hypertension Father Cancer Brother Cancer Diabetes Sister Diabetes Other Alcohol abuse Depression H/O transfusion of whole blood Kidney disease Surgical History (Updated 11/02/22 @ 11:[address] Satish Nava MD) History of appendectomy History of arteriovenostomy for renal dialysis (~08/2018) History of artificial lens replacement History of cholecystectomy History of eye surgery Kidney replaced by transplant Renal transplant recipient Status post insertion of dialysis catheter (~08/2018) Social History household members: spouse Smoking Status: Never smoker second hand exposure: No alcohol intake: never substance use type: does not use caffeine: No what type of physical activity do you participate in: none Physical Exam Const alert, oriented x3 and no apparent distress General Appearance: cooperative HEENT normocephalic and head/scalp atraumatic Eyes PERRL and EOMs intact bilaterally Neck supple and No nodes Resp normal air movement and clear to auscultation bilaterally Cardio regular rate and regular rhythm GI soft to palpation, non-tender and non-distended Extremity General Extremity: Negative for edema Skin Skin Narrative: reviewed photos Neuro CN's II-XII intact bilaterally Lab / Micro Data Attestation: I reviewed the patient's lab results. Result Diagrams: 11/02/22 04:29 11/02/22 04:29 Labs: Laboratory Results - last 24 hr 11/01/22 14:40: POC Glucose 222 H 11/01/22 20:17: POC Glucose 372 H 11/02/22 04:29: WBC 10.7, RBC 5.09, Hgb 15.6, Hct 47.5, MCV 93.3, MCH 30.6, MCHC32.8, RDW Std Deviation 43.4, RDW Coeff of Tomy 12.7, Plt Count 179, MPV 10.5, Immature Gran % (Auto) 0.400, Neut % (Auto) 82.7 H, Lymph % (Auto) 9.3 L, Campbell %(Auto) 7.5, Eos % (Auto) 0.0, Baso % (Auto) 0.1, Absolute Neuts (auto) 8.9 H, Absolute Lymphs (auto) 0.99, Nucleated RBC % 0 11/02/22 04:29: Sodium 137, Potassium 4.9, Chloride 110 H, Carbon Dioxide 22.0, Anion Gap 5, BUN 37 H, Creatinine 1.48 H, Estim Creat Clear Calc 55.84, Est GFR (MDRD) Af Amer 64, Est GFR (MDRD) Non-Af 53 L, BUN/Creatinine Ratio 25.0 H, Glucose 251 H, Calcium 9.3, C-React Prot Ext Range 13.70 H 11/02/22 06:22: POC Glucose 211 H Micro: Microbiology 11/01/22 14:40 Incision/Surgical Site Gram Stain - Final 11/01/22 14:40 Incision/Surgical Site Wound Culture - Preliminary No growth-Final to follow 11/01/22 14:13 Amputation - Toe Gram Stain - Final 11/01/22 14:13 Amputation - Toe Wound Culture - Preliminary Gram positive organism 11/01/22 09:49 Blood Culture (Wb) - Anticubital Left Bacteria Detection (PCR) - Final Coag Negative Staph 11/01/22 09:49 Blood Culture (Wb) - Anticubital Left Blood Culture - Preliminary 11/01/22 11:30 Nasal Secretion SARS-CoV-2 Antigen (Rapid) - Final Radiology Impression Foot X-Ray 11/01/22 11:52 IMPRESSION: Intraoperative images provided for transmetatarsal amputation. Electronically Signed: Tristan France MD at 15:14 EST , 11/02/22 1156 <Electronically signed by Satish Nava MD> Cosigner Signature (if applicable): CC: FITTINGS TIGHTENERBlanca Garrison; LAISHA Funes; AJ Josue; Delmy Billy; Dr. Amy Ureña MD; Dr. Zaida Gaston MD; Dr. William Hayes DO; Dr. Kendra MD; Dr. Awa Martínez MD; Dr. Satish Nava MD~ Signed [facility] Work Phone: [phone] Consult note Author Valentín Evans [facility] November 02, 2022 9:14am Note Date/Time November 02, 2022 9:12am [facility] Medical Records Department [address] [place] [address] Pharmacokinetic/Renal -Consult 11/02/22906 MR#: [id number] Acct: [id number] Name: ITALO BURGOS Rep #:[id number] : 1970 51 From: Valentín mora PCP: Dr. Zaida Gaston MD Status:ADM I N Y Location: [place] [address] Consult Pharmacy has been consulted to manage selected antiobiotic: Vancomycin Type of Consult: New start Suspected Infection: Other Prior Doses of Antibiotics Received/Current Regimen: received vanc 2000mg IV x1 in E.D. yesterday at 12:30 Labs: Sodium 137 mmol/L (136-145) 11/02/22 04:29 Potassium 4.9 mmol/L (3.5-5.1) 11/02/22 04:29 Chloride 110 mmol/L (98-107) H 11/02/22 04:29 Carbon Dioxide 22.0 mmol/L (21.0-32.0) 11/02/22 04:29 Anion Gap 5 (5-15) 11/02/22 04:29 BUN 37 mg/dL (7-18) H 11/02/22 04:29 Creatinine 1.48 mg/dL (0.70-1.30) H 11/02/22 04:29 Est GFR (MDRD) Af Amer 64 mL/min (>60) 11/02/22 04:29 Est GFR (MDRD) Non-Af 53 mL/min (>60) L 11/02/22 04:29 BUN/Creatinine Ratio 25.0 RATIO (10-20) H 11/02/22 04:29 Glucose 251 mg/dL (74-106) H 11/02/22 04:29 Microbiology: Microbiology 11/01/22 09:49 Blood Culture (Wb) - Anticubital Left Bacteria Detection (PCR) - Final Coag Negative Staph 11/01/22 09:49 Blood Culture (Wb) - Anticubital Left Blood Culture - Preliminary 11/01/22 11:30 Nasal Secretion SARS-CoV-2 Antigen (Rapid) - Final Weight used for dosin.4 kg Estimated Creatinine Clearance: 68.9ml/min Goal Trough: 15-20 mcg/mL Pharmacy Plan for Drug Dosing: Since the patient received a loading dose of 2000mg IV x1 yesterday less than 24hours ago, will not load again today but will begin a scheduled maintenance doseof 1250mg IV q12h per [facility] dosing protocol. Will check a trough level before the4th dose of 1250mg tomorrow night. The patient's CrCl of 68.9ml/min was calculated using an adjusted body weight. Pharmacy Service will continue to monitor and adjust dosing as required. Follow-Up Labs: Trough Vancomycin Labs to be done on [date and time ordered]: 11/03/22 19:30 11/02/2214 <Electronically signed by Valentín Gee erg > Date _ Valentín Evans Cosigner Signature (if applicable): Date CC: ~ Signed [facility] Work Phone: 1(323) 590-632402-24-[address] Niño [facility] November 02, 2022 7:15am Note Date/Time November 02, 2022 6:55am [facility] Medical Records Department [address] [place] [id number] Progress Note 11/02/22 0654 MR#: [id number] Acct: [id number] Name: ITALO BURGOS Rep #:[id number] : 1970 51 From: Gerhard Niño DPM PCP: Dr. Zaida Gaston MD Status:ADM I N Location: [place] [address] Subjective Subjective Patient was seen this morning for follow up on [facility]. Patient afebrile, WBC normal. Bld Cx with GPC in clusters- IV Vancomycin has been started. Objective Data Objective Data Vital Signs: Vital Signs Temp Pulse Resp BP Pulse Ox O2 Del Method O2 Flow Rate 98.0 F 90 16 158/81 H 100 Room Air 2 11/02/22 05:43 11/02/22 05:43 11/02/22 05:43 11/02/22 05:43 11/02/22 05:43 11/02/22 05:43 11/01/22 17:43 Oxygen Flow Rate (L/min) 2 Oxygen Delivery Method Room Air Weight: 108.409 kg Body Mass Index (BMI) 80.3 Intake & Output: Intake and Output for Last 24 Hours 10/31/22 11/01/22 11/02/22 23:59 23:59 23:59 Intake Total 2490.75 / 2490.75 400 / 400 Output Total 700 / 700 Balance 1790.75 / 1790.75 400 / 400 Lab / Micro Data Result Diagrams: 11/02/22 04:29 11/02/22 04:29 Labs: Laboratory Results - last 24 hr 11/01/22 09:49: WBC 6.4, RBC 5.23, Hgb 15.9, Hct 49.7, MCV 95.0 H, MCH 30.4, MCHC 32.0, RDW Std Deviation 44.9 H, RDW Coeff of Tomy 12.7, Plt Count 199, MPV 9.9, Immature Gran % (Auto) 0.500, Neut % (Auto) 67.5, Lymph % (Auto) 21.1, [place]% (Auto) 9.7, Eos % (Auto) 0.9, Baso % (Auto) 0.3, Absolute Neuts (auto) 4.3, Absolute Lymphs (auto) 1.35, Nucleated RBC % 0, ESR 10 11/01/22 09:49: PT 13.4, INR 1.1, APTT 28.9 11/01/22 09:49: Sodium 139, Potassium 5.2 H, Chloride 108 H, Carbon Dioxide 25.0, Anion Gap 6, BUN 37 H, Creatinine 1.63 H, Estim Creat Clear Calc 50.71, Est GFR (MDRD) Af Amer 57 L, Est GFR (MDRD) Non-Af 47 L, BUN/Creatinine Ratio 22.7 H, Glucose 266 H, Calcium 9.6, Total Bilirubin 0.50, AST 23, ALT 41, Alkaline Phosphatase 156 H, C-React Prot Ext Range 10.80 H, Total Protein 7.2, Albumin 3.5, Globulin 3.7, Albumin/Globulin Ratio 0.9 11/01/22 09:49: Lactic Acid 1.4 11/01/22 10:39: POC Glucose 264 H 11/01/22 14:40: POC Glucose 222 H 11/01/22 20:17: POC Glucose 372 H 11/02/22 04:29: WBC 10.7, RBC 5.09, Hgb 15.6, Hct 47.5, MCV 93.3, MCH 30.6, MCHC32.8, RDW Std Deviation 43.4, RDW Coeff of Tomy 12.7, Plt Count 179, MPV 10.5, Immature Gran % (Auto) 0.400, Neut % (Auto) 82.7 H, Lymph % (Auto) 9.3 L, [place] %(Auto) 7.5, Eos % (Auto) 0.0, Baso % (Auto) 0.1, Absolute Neuts (auto) 8.9 H, Absolute Lymphs (auto) 0.99, Nucleated RBC % 0 11/02/22 04:29: Sodium 137, Potassium 4.9, Chloride 110 H, Carbon Dioxide 22.0, Anion Gap 5, BUN 37 H, Creatinine 1.48 H, Estim Creat Clear Calc 55.84, Est GFR (MDRD) Af Amer 64, Est GFR (MDRD) Non-Af 53 L, BUN/Creatinine Ratio 25.0 H, Glucose 251 H, Calcium 9.3, C-React Prot Ext Range 13.70 H Micro: Microbiology 11/01/22 09:49 Blood Culture (Wb) - Anticubital Left Blood Culture - Preliminary 11/01/22 11:30 Nasal Secretion SARS-CoV-2 Antigen (Rapid) - Final Radiography Diagnostic Testing: Radiology Impression Foot X-Ray 11/01/22 09:42 IMPRESSION: Status post resection of the distal portion of the fifth metatarsal as well as the fifth toe. Partial resection of the distal aspect of the fourth metatarsal and proximal base of the fourth toe. Diffuse soft tissue swelling. Findings suggestive of a an ulceration overlying the distal aspect of the fourth metatarsal. Vascular calcification. Electronically Signed: Tristan France MD at 10:25 EST , Chest X-Ray 11/01/22 10:05 IMPRESSION: Cardiomegaly. The lungs are clear. Electronically Signed: Tristan France MD at 10:30 EST , Foot X-Ray 11/01/22 11:52 IMPRESSION: Intraoperative images provided for transmetatarsal amputation. Electronically Signed: Tristan France MD at 15:14 EST , Physical Exam Narrative Patient alert oriented x3. Vascular: Dorsalis pedis posterior tibial pulses palpable 2 out of 4 to bilateral lower extremity. Diffuse edema to left forefoot. Neurologic: Light touch protective sensation absent to foot. Dermatologic: Left foot s/p TMA with sutures intact, no dehiscence - minimal to no erythema, overall bleeding controlled. No visible abscess, on fluctuance, no crepitus, no necrosis. Musculoskeletal: s/p TMA in good position. No evidence of compartment syndrome. Assessment & Plan Assessment/Plan (1) Type 2 diabetes mellitus with left diabetic foot infection: (2) Non-pressure chronic ulcer of other part of left foot with necrosis of bone: (3) Type 2 diabetes mellitus with diabetic polyneuropathy: (4) Osteomyelitis of foot, left, acute: PLAN: Plan s/p left foot TMA on 11/01/22- site looks great. Bld Cx with GPC in clusters - Vancomycin has been started. Continue to follow cultures. ID service has been consulted. Changed dressing - betadine soaked adaptic, 4x4 gauze, kerlix, abd pads and tom.Keep clean, dry and intact. No weightbearing left foot. Keep left foot elevated. Hospital medicine on consult - appreciate assistance. D/c home once final antibiotics determined. 11/02/22 0715 <Electronically signed by Gerhard Niño DPM> Gerhard Niño DPM Cosigner Signature (if applicable): CC: ~ Signed [facility] Work Phone: [phone]) 416-151002-24-[address] Smith [facility] November 02, 2022 6:29am Note Date/Time November 02, 2022 6:29am [facility] Medical Records Department [address] [place] [address] Progress Note - Hospitalist 11/02/22 06 MR#: [id number] Acct: [id number] Name: BURGOSITALO Mery Rep #:[id number] : 1970 51 From: Isamar Smith MD PCP: Dr. Zaida Gaston MD Status:ADM I N Location: [place] [address] Hospitalist Note Bld Cx with GPC in clusters. Will start IV Vancomycin. 11/02/22628 <Electronically signed by Isamar Smith MD> Cosigner Signature (if applicable): CC: ~ Signed [facility] Work Phone: [phone]) 217-606102-23-2023 Procedure [facility] 11-01-2022 History and physical note Author Dr. Levy [facility] November 01, 2022 10:43am Note Date/Time November 01, 2022 10:42am [facility] Medical Records Department [address] [place] [address] History & Physical Exam 11/01/22 1041 MR#: [id number] Acct: [id number] Name: ITALO BURGOS Rep #:[id number] : 1970 51 From: Mayo Levy DPM PCP: Dr. Zaida Gaston MD Status:REG S DC Location: [place] [address] HPI - General General Date of Admission: 11/01/22 Date of Service: 11/01/22 Chief Complaint: Left foot infection HPI Narrative ITALO BURGOS, is a 51 M who presents with a chronic left foot wound that is subsequently worsened over the past couple weeks.? Patient was seen by Dr. Medina in the wound care center today.? Patient noted to have an acute infection.? Patient noticed blistering increased drainage redness warmth and swelling to left foot.? At current patient denies any constitutional symptoms.? Patient denies any pain.? Patient has history of diabetes with significant neuropathy.? Patient has been treated for an acute gas infection in the past which required partial amputation of the fifth ray.? Patient consenting to transmetatarsal amputation today.? No other complaints. [facility] Medical History Acute hypoxemic respiratory failure Acute on chronic diastolic CHF (congestive heart failure) Acute respiratory failure with hypoxia ILDA (acute kidney injury) Anasarca associated with disorder of kidney Anemia of chronic renal failure, stage 4 (severe) Anxiety and depression Atherosclerotic heart disease of [place] coronary artery without angina pectoris Autonomic neuropathy Blind left eye Cellulitis and abscess of right leg Cellulitis of left lower limb Chewing tobacco nicotine dependence Chronic renal failure, stage 4 (severe) Chronic renal failure, stage 5 Chronic ulcer of 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 Congestive heart failure (CHF) COVID-19 COVID-19 Diabetes mellitus type II, uncontrolled Diabetic foot infection Diabetic foot ulcer Diabetic nephropathy Diabetic neuropathy Diabetic retinopathy Dyspnea Essential hypertension Fistula (~12/2018) Gas gangrene of foot GERD (gastroesophageal reflux disease) History of acute myocardial infarction History of left heart catheterization (LHC) (~06/26/11) HLD (hyperlipidemia) Hypertensive emergency Hypoglycemia Hypokalemia Hypoxemia Kidney failure Kidney stones Necrotizing fasciitis 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 exposed Noncompliance Obesity (BMI 30-39.9) Pneumonia Problem with dialysis access Pulmonary edema Respiratory failure Retention, urine Right leg pain 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 Vision problems Home Medications aspirin 81 mg chewable tablet 81 mg PO DAILY@0800 heart health 08/21/18 [History Last Taken 10/06/19] insulin lispro 100 unit/mL subcutaneous pen See Protocol SQ ACHS blood sugar 10/06/19 [History Last Taken 10/06/19] insulin glargine 100 unit/mL (3 mL) subcutaneous pen 0 unit subcut QHS blood sugar 08/11/20 [History Last Taken Unknown] bupropion HCl 150 mg 24 hr tablet, extended release (Wellbutrin XL) 300 mg PO DAILY mood 09/18/21 [History Last Taken Unknown] docusate sodium 100 mg capsule (Colace) 100 mg PO DAILY constipation 09/18/21 [History Last Taken Unknown] pantoprazole 20 mg tablet,delayed release (Protonix) 20 mg PO DAILY gerd 09/18/21 [History Last Taken Unknown] prednisone 5 mg tablet 5 mg PO DAILY steroid 09/18/21 [History Last Taken Unknown] tacrolimus 1 mg tablet,extended release 24 hr (Envarsus XR) 1 mg PO DAILY rejection med 09/18/21 [History Last Taken Unknown] carvedilol 25 mg tablet 25 mg PO BID 12/26/21 [History Last Taken Unknown] cholecalciferol (vitamin D3) 25 mcg (1,000 unit) capsule (Vitamin D3) 50 mcg PO QWEEK 12/26/21 [History Last Taken Unknown] gabapentin 100 mg tablet 100 mg PO QHS 12/26/21 [History Last Taken Unknown] losartan 25 mg tablet tablet PO 09/05/22 [History Last Taken Unknown] sulfamethoxazole 400 mg-trimethoprim 80 mg tablet tablet PO 09/05/22 [History Last Taken Unknown] Allergy/AdvReac Type Severity Reaction Status Date / Time No Known Allergies Allergy Verified 10/18/22 09:18 Family History Mother Heart disease Hypertension Father Cancer Brother Cancer Diabetes Sister Diabetes Other Alcohol abuse Depression H/O transfusion of whole blood Kidney disease Surgical History History of appendectomy History of arteriovenostomy for renal dialysis (~08/2018) History of artificial lens replacement History of cholecystectomy History of eye surgery Kidney replaced by transplant Renal transplant recipient Status post insertion of dialysis catheter (~08/2018) Social History household members: spouse Smoking Status: Never smoker second hand exposure: No alcohol intake: never substance use type: does not use caffeine: No what type of physical activity do you participate in: none ROS Constitutional Constitutional: Denies chills, fever(s) or weight loss Eyes Eyes: Denies blurry vision, change in vision or diplopia ENT HEENT: Denies ear pain, rhinorrhea or sore throat Cardiovascular Cardiovascular: Denies chest pain, orthopnea, palpitations, paroxysmal nocturnaldyspnea or racing heartbeat Respiratory/Chest Respiratory/Chest: Denies cough, dyspnea or dyspnea on exertion Gastrointestinal Gastrointestinal: Denies abdominal pain, constipation, diarrhea, melena, nausea or vomiting Genitourinary Genitourinary: Denies dysuria, hematuria or urinary frequency Musculoskeletal Musculoskeletal: Reports other Details: Diabetic foot infection ; Denies arthralgias, back pain, myalgias or neck pain Neurologic Neurologic: Reports other Details: Patient states he has no sensation in his feet due to diabetic neuropathy. ; Denies headache(s), paresthesias or weakness Psychiatric Psychiatric: Reports depression Endocrine Endocrinology: Reports polydipsia and polyuria; Denies cold intolerance or heat intolerance Hematologic/Lymphatic Hematologic/Lymphatic: Reports systems reviewed and no addt'l complaints, exceptas documented Vital Signs Vital Signs Vital Signs: 11/01/22 09:23 11/01/22 09:42 11/01/22 09:48 Temperature 97.6 F L 97.6 F L Temperature Source Temporal Temporal Pulse Rate 89 89 Respiratory Rate 16 16 Blood Pressure 166/79 H 166/79 H Blood Pressure Mean 108 108 Blood Pressure Source Blood Pressure Position Blood Pressure Location Pulse Ox 97 98 Oxygen Delivery Method Room Air Room Air Room Air 11/01/22 10:26 Temperature Temperature Source Oral Pulse Rate 81 Respiratory Rate 16 Blood Pressure Blood Pressure Mean Blood Pressure Source Monitor Blood Pressure Position Sitting Blood Pressure Location Left Arm Pulse Ox 96 Oxygen Delivery Method Room Air Weight Weight: 239.6 kg Body Mass Index (BMI) 80.3 Physical Exam Narrative Patient alert oriented x3. Vascular: Dorsalis pedis posterior tibial pulses palpable 2 out of 4 to bilateral lower extremity. Diffuse edema to left forefoot secondary to cellulitis. Focal increase in warmth to that site. Neurologic: Light touch protective sensation absent to bilateral feet. Dermatologic: Full-thickness wound to lateral left forefoot probing down to fifth ray. The removed vesicle left fourth digit. Large bullous to third digit. Diffuse periwound erythema edema warmth and malodor. Some fluctuance noted to site. No evidence of crepitus. Musculoskeletal: Absent left fifth digit noted. Slight varus deformity of foot secondary to amputation. No other wound contributing deformity. Results Lab / Micro Data Result Diagrams: 11/01/22 09:49 11/01/22 09:49 Labs: Laboratory Results - last 24 hr 11/01/22 09:49: WBC 6.4, RBC 5.23, Hgb 15.9, Hct 49.7, MCV 95.0 H, MCH 30.4, MCHC 32.0, RDW Std Deviation 44.9 H, RDW Coeff of Tomy 12.7, Plt Count 199, MPV 9.9, Immature Gran % (Auto) 0.500, Neut % (Auto) 67.5, Lymph % (Auto) 21.1, Campbell% (Auto) 9.7, Eos % (Auto) 0.9, Baso % (Auto) 0.3, Absolute Neuts (auto) 4.3, Absolute Lymphs (auto) 1.35, Nucleated RBC % 0, ESR 10 11/01/22 09:49: PT 13.4, INR 1.1, APTT 28.9 11/01/22 09:49: Sodium 139, Potassium 5.2 H, Chloride 108 H, Carbon Dioxide 25.0, Anion Gap 6, BUN 37 H, Creatinine 1.63 H, Estim Creat Clear Calc 50.71, Est GFR (MDRD) Af Amer 57 L, Est GFR (MDRD) Non-Af 47 L, BUN/Creatinine Ratio 22.7 H, Glucose 266 H, Calcium 9.6, Total Bilirubin 0.50, AST 23, ALT 41, Alkaline Phosphatase 156 H, C-React Prot Ext Range 10.80 H, Total Protein 7.2, Albumin 3.5, Globulin 3.7, Albumin/Globulin Ratio 0.9 11/01/22 09:49: Lactic Acid 1.4 Radiology Impression Foot X-Ray 11/01/22 09:42 IMPRESSION: Status post resection of the distal portion of the fifth metatarsal as well as the fifth toe. Partial resection of the distal aspect of the fourth metatarsal and proximal base of the fourth toe. Diffuse soft tissue swelling. Findings suggestive of a an ulceration overlying the distal aspect of the fourth metatarsal. Vascular calcification. Electronically Signed: Tristan France MD at 10:25 EST , Chest X-Ray 11/01/22 10:05 IMPRESSION: Cardiomegaly. The lungs are clear. Electronically Signed: Tristan France MD at 10:30 EST Reading Location ID and State: [facility] / [place] , Service support , Assessment & Plan Assessment/Plan (1) Diabetic infection of left foot: PLAN: Exam performed. Radiographs suggestive of abscess to left foot. No evidence of acute gas infection. Patient vitally stable, inflammatory labs pending. Patient received vancomycin and Zosyn in ER. Patient has not eaten yet today. Patient has history of gas infection left foot requiring left partial ray resection. Patient has failed to heal his wounds over the past year. Over the past couple weeks his wounds have worsened and there is noted to be a acute abscess in the wound care center today. At this time I recommend urgent left transmetatarsal amputation. Chest x-ray EKG pending. Currently on OR schedule at 12 PM. Discussed and patient risks and benefits of performing left transmetatarsal amputation. Due to chronic foot wound nonhealing over the past year is recommended patient to proceed with transmetatarsal amputation for 1 infection clearance purposes and for 2 a balance functional amputation with low risk of reulceration. Discussed with patient performing this urgently as patient has acute infection to left lower extremity and attempt to clear this infection and limit the systemic effects we will plan for transmetatarsal amputation today. Patient in agreement at this time. Recommend infectious disease consult. Patient to be admitted with hospitalist on board. We will follow closely while in house. (2) Abscess of left foot: (3) Cellulitis of foot, left: (4) Type 2 diabetes mellitus with diabetic polyneuropathy: (5) Non-pressure chronic ulcer of other part of left foot with necrosis of bone: 11/01/22 1043 <Electronically signed by Mayo Levy DPM> Cosigner Signature (if applicable): CC: IRIS Levy; Dr. Zaida Gaston MD~ Signed [facility] Work Phone: [phone]) 371-359402-23-[address] Levy [facility] November 01, 2022 10:17am Note Date/Time November 01, 2022 10:16am [facility] Medical Records Department [address] [place] [id number] Consultation 11/01/22 1007 MR#: [id number] Acct: [id number] Name: ITALO BURGOS Rep #:[id number] : 1970 51 From: Mayo Levy DPM PCP: Dr. Zaida Gaston MD Status:REG E R Location: ED Assessment & Plan Assessment/Plan (1) Diabetic infection of left foot: PLAN: Exam performed. Radiographs suggestive of abscess to left foot. No evidence of acute gas infection. Patient vitally stable, inflammatory labs pending. Patient received vancomycin and Zosyn in ER. Patient has not eaten yet today. Patient has history of gas infection left foot requiring left partial ray resection. Patient has failed to heal his wounds over the past year. Over the past couple weeks his wounds have worsened and there is noted to be a acute abscess in the wound care center today. At this time I recommend urgent left transmetatarsal amputation. Discussed and patient risks and benefits of performing left transmetatarsal amputation. Due to chronic foot wound nonhealing over the past year is recommended patient to proceed with transmetatarsal amputation for 1 infection clearance purposes and for 2 a balance functional amputation with low risk of reulceration. Discussed with patient performing this urgently as patient has acute infection to left lower extremity and attempt to clear this infection and limit the systemic effects we will plan for transmetatarsal amputation today. Patient in agreement at this time. Recommend infectious disease consult. Patient to be admitted with hospitalist on board. We will follow closely while in house. (2) Abscess of left foot: (3) Cellulitis of foot, left: (4) Type 2 diabetes mellitus with diabetic polyneuropathy: (5) Non-pressure chronic ulcer of other part of left foot with necrosis of bone: HPI Consult Data Date of Consult: 11/01/22 HPI Narrative HPI Narrative: ITALO BURGOS, is a 51 M who presents with a chronic left foot wound that is subsequently worsened over the past couple weeks. Patient was seen by Dr. Medina in the wound care center today. Patient noted to have an acute infection. Patient noticed blistering increased drainage redness warmth and swelling to left foot. At current patient denies any constitutional symptoms. Patient denies any pain. Patient has history of diabetes with significant neuropathy. Patient has been treated for an acute gas infection in the past which required partial amputation of the fifth ray. Patient consenting to transmetatarsal amputation today. No other complaints. [facility] Medical History (Updated 11/01/22 @ 10:[address] Mayo Levy, DPM) Acute hypoxemic respiratory failure Acute on chronic diastolic CHF (congestive heart failure) Acute respiratory failure with hypoxia ILDA (acute kidney injury) Anasarca associated with disorder of kidney Anemia of chronic renal failure, stage 4 (severe) Anxiety and depression Atherosclerotic heart disease of [place] coronary artery without angina pectoris Autonomic neuropathy Blind left eye Cellulitis and abscess of right leg Cellulitis of left lower limb Chewing tobacco nicotine dependence Chronic renal failure, stage 4 (severe) Chronic renal failure, stage 5 Chronic ulcer of 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 Congestive heart failure (CHF) COVID-19 COVID-19 Diabetes mellitus type II, uncontrolled Diabetic foot infection Diabetic foot ulcer Diabetic nephropathy Diabetic neuropathy Diabetic retinopathy Dyspnea Essential hypertension Fistula (~12/2018) Gas gangrene of foot GERD (gastroesophageal reflux disease) History of acute myocardial infarction History of left heart catheterization (LHC) (~06/26/11) HLD (hyperlipidemia) Hypertensive emergency Hypoglycemia Hypokalemia Hypoxemia Kidney failure Kidney stones Necrotizing fasciitis 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 exposed Noncompliance Obesity (BMI 30-39.9) Pneumonia Problem with dialysis access Pulmonary edema Respiratory failure Retention, urine Right leg pain 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 Vision problems Home Medications aspirin 81 mg chewable tablet 81 mg PO DAILY@0800 heart health 08/21/18 [History Last Taken 10/06/19] insulin lispro 100 unit/mL subcutaneous pen See Protocol SQ ACHS blood sugar 10/06/19 [History Last Taken 10/06/19] insulin glargine 100 unit/mL (3 mL) subcutaneous pen 0 unit subcut QHS blood sugar 08/11/20 [History Last Taken Unknown] bupropion HCl 150 mg 24 hr tablet, extended release (Wellbutrin XL) 300 mg PO DAILY mood 09/18/21 [History Last Taken Unknown] docusate sodium 100 mg capsule (Colace) 100 mg PO DAILY constipation 09/18/21 [History Last Taken Unknown] pantoprazole 20 mg tablet,delayed release (Protonix) 20 mg PO DAILY gerd 09/18/21 [History Last Taken Unknown] prednisone 5 mg tablet 5 mg PO DAILY steroid 09/18/21 [History Last Taken Unknown] tacrolimus 1 mg tablet,extended release 24 hr (Envarsus XR) 1 mg PO DAILY rejection med 09/18/21 [History Last Taken Unknown] carvedilol 25 mg tablet 25 mg PO BID 12/26/21 [History Last Taken Unknown] cholecalciferol (vitamin D3) 25 mcg (1,000 unit) capsule (Vitamin D3) 50 mcg PO QWEEK 12/26/21 [History Last Taken Unknown] gabapentin 100 mg tablet 100 mg PO QHS 12/26/21 [History Last Taken Unknown] losartan 25 mg tablet tablet PO 09/05/22 [History Last Taken Unknown] sulfamethoxazole 400 mg-trimethoprim 80 mg tablet tablet PO 09/05/22 [History Last Taken Unknown] Allergy/AdvReac Type Severity Reaction Status Date / Time No Known Allergies Allergy Verified 10/18/22 09:18 Family History Mother Heart disease Hypertension Father Cancer Brother Cancer Diabetes Sister Diabetes Other Alcohol abuse Depression H/O transfusion of whole blood Kidney disease Surgical History History of appendectomy History of arteriovenostomy for renal dialysis (~08/2018) History of artificial lens replacement History of cholecystectomy History of eye surgery Kidney replaced by transplant Renal transplant recipient Status post insertion of dialysis catheter (~08/2018) Social History household members: spouse Smoking Status: Never smoker second hand exposure: No alcohol intake: never substance use type: does not use caffeine: No what type of physical activity do you participate in: none Physical Exam Narrative Patient alert oriented x3. Vascular: Dorsalis pedis posterior tibial pulses palpable 2 out of 4 to bilateral lower extremity. Diffuse edema to left forefoot secondary to cellulitis. Focal increase in warmth to that site. Neurologic: Light touch protective sensation absent to bilateral feet. Dermatologic: Full-thickness wound to lateral left forefoot probing down to fifth ray. The removed vesicle left fourth digit. Large bullous to third digit. Diffuse periwound erythema edema warmth and malodor. Some fluctuance noted to site. No evidence of crepitus. Musculoskeletal: Absent left fifth digit noted. Slight varus deformity of foot secondary to amputation. No other wound contributing deformity. Lab / Micro Data Result Diagrams: 11/01/22 09:49 11/01/22 09:49 11/01/22 1017 <Electronically signed by Mayo Levy DPM> Cosigner Signature (if applicable): CC: Dr. Zaida Gaston MD~ Signed [facility] Work Phone: 1([phone]) 926-791201-26-2023 History of Present illness Narrative* Verna Jensen, [facility] - 10/04/2022 1:00 PM EST Images from the original note were not included. Primary Care Pharmacy Visit CC (Reason for Consult): Diabetes Goal: A1c < 7% Collaborating Provider: Dr. Gaston Last Provider Visit: 08/25/22 Italo Burgos is a 51 year old male presenting for follow up visit in person. Patient consents [facility] collaborative practice agreement. Patient is presenting today for f/up pharmacotherapy management appointment for diabetes. At last/initial PharmD visit on 08/23, patient reported not being certain if he had T1 vs T2DM but was following soon with endocrinology. Lantus was increased, Dexcom G6 was ordered, and briefly discussed carbcounting/insulin dosing though patient didn't have interest in pursuing that further at the time. At last PCP appt, no med changes made. On 09/24 patient saw endo pharmacist at [facility] [place]. No medchanges made since minimal SMBGs to review but patient encouraged to discuss GLP1 with park activities coordinator. Subjective: HPI: He really likes the Dexcom, it helps me. He feels he is taking his insulins more consistently. Has been making some dietary changes as a result. Has cut down on portion sizes. Was surprised by how much his sugar would increase when eating potatoes. He is now only eating 1/2 of a potato instead ofa full one. He is seeing Dr. Durand (Tali pickard, last appt was in August). States endo increased Lantus to 48units and mealtime insulin is 16 units with meals and 8 units with snack. He really liked the park activities coordinator, seeing again in October. Current DM Medications: Insulin glargine (Lantus) 44 units QAM (taking 48 units daily) Insulin lispro (Humalog) 12-14 units + SSI TIDAC (taking 16 units with meals or 8 units with snack + SSI (2 units for every 40 > 180)) Current HTN Medications: Losartan 25mg daily Carvedilol 25mg BID GLYCEMIC CONTROL: Hypoglycemia: had a couple of lows 2 days ago, felt sweaty and had a VELASCO; thinks he had a smaller meal How corrected: apple juice Preventative Medications: On TOM/ARB: Yes On Statin: No ROS: Patient denies CP, SOB, VELASCO, blurred vision, dizziness or lightheadedness Patient denies symptoms of hypoglycemia (sweating, anxiety, palpitations, hunger, and tremor) Patient denies symptoms of hyperglycemia (polyuria, polydipsia, polyphagia) Patient denies potential medication adverse effects MEDICATIONS: Pill bottles are not present Adherence: denies missed doses Pharmacy: [facility]; [facility] is alternative Rx coverage: [facility] Medicare + Medicaid Affordability: no issues Diabetes supplies: [employer] System: pill boxes ACTIVE PROBLEM LIST Uncontrolled Type 2 Diabetes Mellitus With Complication, With Long-Term Current Use of Insulin Hypertension Goal Bp (Blood Pressure) < 140/90 Other Hyperlipidemia Ed (Erectile Dysfunction) Lower Urinary Tract Symptoms (Luts) History of Kidney Stones Microscopic Hematuria Diabetic Polyneuropathy Associated With Type 2 Diabetes Mellitus (Hcc) Nausea Vomiting Moderate Episode of Recurrent Major Depressive Disorder ([facility]) Right Leg Weakness Gait Instability Ckd (Chronic Kidney Disease) Requiring Chronic Dialysis ([facility]) Kidney Transplant Recipient Type 1 Diabetes Mellitus On Insulin Therapy ([facility]) PAST MEDICAL HISTORY Diagnosis Date Acute diastolic (congestive) heart failure ([facility]) Bronchitis Chronic kidney failure, stage 4 (severe) ([facility]) Depression Detached retina DM type 2, goal HbA1c < 7% ([facility]) ESRD (end stage renal disease) ([facility]) GERD (gastroesophageal reflux disease) Hyperlipidemia Kidney stones LUANNE (obstructive sleep apnea) PNA (pneumonia) Proliferative retinopathy 02/10/2019 Snoring Unspecified essential hypertension Vitamin D deficiency ALLERGIES No Known Allergies Medication List Medication Directions Comments Action/Plan >Compression Knee Highs 30-40 mm KNEE HIGH COMPRESSION STOCKINGS, 30-40 MM, I DX: EDEMA ACETAMINOPHEN ORAL Take by mouth. 1000 mg bid for pain / aches aspirin 81 mg chewable tablet chew and swallow 1 tablet by mouth once daily. blood sugar diagnostic (BLOOD GLUCOSE TEST) test strip TEST BLOOD SUGAR 3 TIMES PER DAY. DX: 250.E11.9. INSULIN DEP: yes blood sugar diagnostic (BLOOD GLUCOSE TEST) test strip One Touch Verio preferred - Kit - Dx E11.8 Insulin Dependent, Test blood sugar three times a day Blood-Glucose Meter monitoring kit Glucose Meter of Choice, One Touch Verio preferred - Kit - Dx E11.8 Insulin Dependent, Test blood sugar three times a day buPROPion XL (WELLBUTRIN XL) 300 mg 24 hr tablet Take 1 tablet by mouth once daily. carvedilol (COREG) 25 mg tablet Take 1 tablet by mouth twice daily. cholecalciferol (VITAMIN D3) 1,000 unit tab tablet Take 1 tablet by mouth q 24 HR. CPAP Initiate Auto PAP @ 5-20 cm of water with humidification. Mask (per patient preference) optional chin strap (if indicated) , filters, tubing, humidifier and lifetime supplies. fluticasone (FLONASE) 50 mcg/actuation nasal spray Use 2 Sprays in each nostril once daily. gabapentin (NEURONTIN) 100 mg capsule Take 1 capsule by mouth daily at bedtime for 180 days. glucagon 3 mg/actuation nasal spray (BAQSIMI) Use 1 [place] in the nose as needed for low blood sugar. May repeat after 15 minutes using a new device if there is no response. insulin glargine (LANTUS SOLOSTAR U-100 INSULIN) 100 unit/mL (3 mL) Inject 44 Units subcutaneously every morning. insulin lispro (HUMALOG KWIKPEN INSULIN) 100 unit/mL INJECT 12 to 14 UNITS DIRECTED BREAKFAST, LUNCH, AND DINNER PLUS SLIDING SCALE (MAX 50 UNITS PER DAY) Insulin [place], Disposable, (BD ULTRA-FINE SANDRA PEN NEEDLE) 32 gauge x 5/32 Use as directed four times daily Lancets lancets Test Blood Sugar 3 x/day. Dx E11.8 Insulin Dependent, One Touch Verio brand preferred losartan (COZAAR) 25 mg tablet Take 1 tablet by mouth once daily. MEDICAL SUPPLY D/C oxygen mycophenolate mofetil (CELLCEPT) 250 mg capsule Take 1 capsule by mouth twice daily. pantoprazole DR (PROTONIX) 20 mg tablet Take 1 tablet by mouth once daily. predniSONE (DELTASONE) 5 mg tablet Take 1 tablet by mouth once daily. sulfamethoxazole-trimethoprim (BACTRIM) 400-80 mg per tablet Take 1 tablet by mouth once daily. tacrolimus ER (ENVARSUS XR) 0.75 mg tablet Take 2 tablets by mouth once daily. Objective: Exam: VITALS: BP 103/64 Pulse 93 Last 3 Encounter BP Readings: Date: BP: 09/24/2022 148/70 08/25/2022 134/72 08/03/2022 117/64 Wt: 104.1 kg (229 lb 6.4 oz) BMI: 34.88 kg/(m^2) LABS: Reviewed Lab Results Component Value Date HBA1C 10.6 07/13/2022 HBA1C 8.2 07/11/2021 HBA1C 7.5 03/23/2021 HBA1C 6.0 08/12/2020 CMP: Glucose 217 09/15/2022 BUN 35 09/15/2022 Creatinine 1.55 09/15/2022 Sodium 139 09/15/2022 Potassium 5.0 09/15/2022 Chloride 107 09/15/2022 CO2 Content, Venous 22 09/15/2022 Protein, Total 7.0 09/15/2022 Albumin 4.1 09/15/2022 Calcium 10.0 09/15/2022 Alkaline Phosphatase 174 09/15/2022 Bilirubin, Total 0.3 09/15/2022 AST 26 09/15/2022 ALT 36 09/15/2022 eGFR 53 (per CMP 09/15/22) Estimated Creatinine Clearance: 64.5 mL/min (A) (based on SCr of 1.55 mg/dL (H)). Lab Results Component Value Date CHOL 149 03/03/2022 CHOL 141 07/28/2021 LDL 82 03/03/2022 LDL 70 07/28/2021 HDL 48 03/03/2022 HDL 52 07/28/2021 TG 97 03/03/2022 TG 94 07/28/2021 The 10-year ASCVD risk score (Chan LIMA, et al., 2019) is: 9.5% Values used to calculate the score: Age: 51 years Sex: Male Is Non- : No Diabetic: Yes Tobacco smoker: No Systolic Blood Pressure: 148 mmHg Is BP treated: Yes HDL Cholesterol: 48 mg/dL Total Cholesterol: 149 mg/dL Albumin/Creat Ratio (mg/g) Date Value 09/15/2022 <19 PHARMACOTHERAPY ASSESSMENT/PLAN: 1. Type 1 diabetes mellitus on insulin therapy (HCC) - ICD9: 250.01, ICD10: E10.9 A1c goal < 7%; uncontrolled (last A1c 10.6%); appears patient may have T2DM given last c-peptidewas within range (uncertain why T1 and T2 are both listed for problem list); CGM report not at goal; Bgs tend to run high and then drop a lot in late-morning though not having many lows; Bgs fluctuate a lot though patient reports adherence with insulin and appropriate timing of mealtime; patient may benefit from doing carb counting to dose mealtime insulin; really likes the Dexcom and making somedietary changes; patient would benefit from GLP1 agonist for BG reduction, weight loss, and reducedinsulin requirements; will not make any changes today since seeing endo next month CONTINUE insulin as recommended by park activities coordinator Advised patient to discuss the following things with endo at upcoming appt Discuss switching from base doses of mealtime insulin to doing carb counting Confirm dx of T1 vs T2 DM Discuss possibility of starting GLP1 agonist Take Dexcom reader to appt Offered to sign off from care since managed by endo but patient prefers to maintain contact with PhramD HbA1c: due 10/13 Follow-up Patient is scheduled to see PCP team on 11/23. Patient to have f/up with PharmD team on 11/22. Patient verbalized understanding of instructions. Verna Jensen PharmD, [facility] Primary Care Clinical Pharmacist The majority of the pharmacy visit (> 50%) was spent counseling and/or coordinating care for thepatient. interaction: face to face time was 30 minutes. [facility] Instructions* Patient Instructions* Verna Jensen RPh - 10/04/2022 1:00 PM EST Consider whether or not you would be open to doing carb counting. Can discuss with park activities coordinator at upcoming appointment. Confirm with park activities coordinator if you have Type 1 vs Type 2 diabetes. Discuss with park activities coordinator his thoughts on starting a GLP1 receptor agonist. Bring Dexcom to your park activities coordinator appointment. documented in [facility]Mary [facility]23 Progress note Author Dona Medina [facility] September 27, 2022 9:55am Note Date/Time September 27, 2022 8 :24am [facility] [address] [place] [address] Progress Note - Wound Care 09/27/22 0824 MR#: [id number] Acct: [id number] Name: ITALO BURGOS Rep #:[id number] : 1970 51 From: Dona adams DPM PCP: Dr. Zaida Gaston MD Status:REG R CR Location: History of Present Illness Date of Service: 09/27/22 Chief Complaint: Osteomyelitis of the left foot; diabetic foot ulceration History of Wound: Patient is a 51-year-old male who presents to the wound care center for evaluation for hyperbaric oxygen therapy. He has been seeing Dr. 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 His ulcer is not making the progress that it should. He has a Gustafson stage III ulcer on his left foot. He uses a knee scooter. Left footx-ray from 05/31/22 showed There is amputation of the fifth metatarsal at the level of the mid diaphysis. There is interval development of osseous destruction of the head and distal diaphysis of the fourth metatarsal and base of the fourth proximal phalanx. Arterial study from 01/09/22, Right RANJAN - 1.19, Left RANJAN - NC, Left digital- brachial index is 0.67. The left digital-brachial index is mildly diminished. There is evidence of arterial calcification at ankle level on the left. Arterialflow appears normal at ankle level bilaterally, and at digital level on the right. There is evidence of mild arterial occlusive disease at digital level on the left. MRI of left lower extremity from 10/07/19 showed Marrow edema consistent osteomyelitis of the distal phalanges of the fourth and fifth toes. Soft tissue swelling. He has a history of DM Type II, last HgA1c 10.5 on 05/31/22, Kidney transplant one year ago, peripheral vascular disease, atherosclerotic heart disease, AMI, neuropathy, and GERD. He has received cardiac clearance from Dr. Oneill. Chest x-ray from 05/31/22 is normal. Today he denies fever, chills, nausea, vomiting. Patient has been having issues with his left TM, he was sent to ENT and an ear tube was place in the left ear only on 07/17/22. Patient has been approved for 30 treatment of hyperbaric oxygen therapy. Progress of Wound: Today is the 24th? treatment of hyperbaric oxygen therapy.? The patient is scheduled for 30 treatments total. Unfortunately the patient had a Dexcom placed on September 06, 2022. This prohibits the patient from participating in hyperbaric oxygen therapy as it is not currently approved. 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 He is pleased with his continued healing progress. He feels his meter is helping to keep his sugars more consistent. He has been changing the outer dressings to the left foot as needed and has left his graft in place.? He deniesany constitutional symptoms.?He continues to deny any pain today.?He has no further complaints today. Objective Data Objective Data Vital Signs: Vital Signs Temp Pulse Resp BP 96.9 F L 92 16 117/77 09/27/22 08:03 09/27/22 08:03 09/27/22 08:03 09/27/22 08:03 Weight: 102.058 kg Body Mass Index (BMI) 34.2 Physical Exam Narrative Patient is alert oriented to person, place and time.? Patient ambulates with assistance of a knee scooter on the left.? And diabetic shoe on the right. Vascular: There are atrophic changes of the skin such as thinning shiny taut appearance absent digital hair growth.? Pulses are grossly palpable 2 out of 4 dorsalis pedis and posterior tibial bilateral feet.? Mild +1 pitting edema to bilateral lower extremity. Neurologic: Light touch protective sensation completely absent to bilateral lower extremity. Dermatologic: Healed right hallux ulceration.?Digital wounds to left foot healedat this time.?Status post partial fifth ray amputation left foot with healthy granular wound at the distal aspect of the amputation site. No signs of infection. Musculoskeletal: No gross wound forming deformity.?Muscular strength full to bilateral lower extremity compartments.? No crepitus or pain noted to the wound or periwound areas. Const alert, oriented x3 and no apparent distress General Appearance: cooperative HEENT normocephalic Eyes General Eye: normal appearance of both eyes Neck General: normal visual inspection Lymph Lymphatic: no lymphadenopathy noted and no lymphedema noted Resp normal respiratory effort Cardio regular rate and regular rhythm Extremity normal capillary refill, no joint enlargement, no calf tenderness and no pedal edema Skin no rashes or lesions noted, skin turgor normal and no jaundice Wound Narrative: Left foot: Partial fifth ray resection noted.? Wound site measures 1.2 cm x 1.1 cm x 0.1 cm.? There is healthy appearing skin about the ulcerative rim.?There isno erythema, no expressible purulent drainage, no malodor, no other localized signs of infection.? Wound demonstrates healthy granular layer with adequate tissue bleeding. Neuro moves all extremities Debridement Note Debridement Note Wound debrided: Fifth metatarsal amputation stump Laterality: Left Wound Grade/Stage: Gustafson stage III Type of Debridement: Excisional debridement Anesthesia Used: 5% Lidocaine Gel Depth: Down to and including healthy tissue and in the subcutaneous layer Percentage of wound debrided: 100 Instrument Used: 3mm curette and #15 blade Tissue Removed: Fibrous, devitalized subcutaneous, biofilm, slough Severity: Fat Layer Exposed Amount of bleeding with debridement: Mild Bleeding Controlled with: Compression and gauze Patient tolerated procedure: Patient tolerated procedure well Post-Debridement Measurements and Additional Note: Post-Debridement Measurements/Treatment OSWALD - Nurse 1 - General Ulcer Assessment Start: 09/11/22 16:14 Freq: Status: Active Protocol: HOLLY Activity Type Activity Date Activity User E-sign Co-sign Detail Recorded Client Recorded Date Recorded By Document 09/13/22 07:59 CARLINE [id number] 09/13/22 08:01 CARLINE Document 09/20/22 08:07 JOE [id number] 09/20/22 08:08 KR Document 09/27/22 08:03 CARLINE [id number] 09/27/22 08:04 CARLINE 09/13/22 09/20/22 09/27/22 07:59 08:07 08:03 OSWALD - Today's Visit Information Type of service Follow-up Visit Follow-up Visit Follow-up Visit (Physician/WORKFORCE DEVELOPMENT SPECIALIST (Physician/WORKFORCE DEVELOPMENT SPECIALIST (Physician/WORKFORCE DEVELOPMENT SPECIALIST ) ) ) Arrival Mode Ambulatory, Ambulatory Ambulatory, Walker Walker Patient Identification Verified (Name & Yes Yes ) Patient Requires Transmission-Based Yes No Precautions Safety Precautions NA Finger Stick Blood Sugar(mg/dl) (if 220 209 indicated): Blood Sugar Stated by Stated by Patient Patient Height and Weight Body Mass Index (BMI) 34.2 34.2 34.2 BMI Classification Obese Obese Obese Vital Signs Temperature (97.8 F-99.1 F) 97.7 F L 97.0 F L 96.9 F L Temperature Source Temporal Temporal Temporal Pulse Rate (60-100) 88 92 92 Pulse Location Monitor Monitor Monitor Respiratory Rate (12-18) 18 16 Respiratory rate source Observation Observation Blood Pressure (90/60-120/80) 133/76 H 156/72 H 117/77 Blood Pressure Mean (mm Hg) 95 100 90 Source Monitor Monitor Monitor Position Semi-Fowlers Sitting Sitting Blood Pressure Location Left Arm Right Arm Left Arm History Since Last Visit- (Skip if this is Patient's initial visit) Have you changed medications since your No No No last visit? Any new allergies or adverse reactions No No No Had a fall/change in ADL's that may No No No increase risk of falls Signs or symptoms of abuse and/or No No No neglect since last visit Have you been in the hospital since your No No No last visit? Has dressing in place as prescribed Yes Yes Yes Has compression in place as prescribed Yes N/A Yes Has offloadiing in place as prescribed Yes N/A Yes Experienced any changes in pain level or No No No management Left Footwear Surgical Shoe Regular Shoe Surgical Shoe with pressure with pressure relief insole relief insole Right Footwear Regular Shoe Regular Shoe Regular Shoe Pain Scale: 0-10 Numeric Is Patient Pain Free? Yes Yes Yes WC - Nurse 1 - General Ulcer Measurement Start: 09/11/22 16:14 Freq: Status: Active Protocol: Activity Type Activity Date Activity User E-sign Co-sign Detail Recorded Client Recorded Date Recorded By Document 09/13/22 07:59 CARLINE [id number] 09/13/22 08:01 JF Document 09/20/22 08:07 KR [id number] 09/20/22 08:08 KR Document 09/27/22 08:03 [id number] 09/27/22 08:04 JF 09/13/22 09/20/22 09/27/22 07:59 08:07 08:03 Wound Center Nurse 1 #10 LL FOOT -Combined with other wound No No -Current Size (cm) - Length 1.3 0.1 1.3 -Current Size (cm) - Width 1.1 0.1 0.9 -Current Size (cm) - Depth 0.1 0.1 0.2 -Total Square Cm 1.43 0.01 1.17 -Photo Taken Yes Yes -Epithelialization Small 1-33% Medium 34-66% -Tunneling No No -Undermining/Tunneling No No -Circular Undermining No No -Exudate Amt Medium Small -Exudate Type Serosanguineous Serosanguineous -Wound Margin Flat & Intact Flat & Intact -Granulation Amt Large (67-100%) Medium (34-66%) -Granulation Quality Red Red -Slough/Fibrin Yes Yes -Necrosis Amt Small (1-33%) Small (1-33%) -Necrotic Tissue Type Adherent Slough Adherent Slough -Structure Exposed N/A N/A -Texture ([place]-wound Skin Appearance) Assessed Assessed -Moisture ([place]-wound Skin Appearance) Assessed, Assessed,Dry/ Maceration Scaly -Color ([place]-wound Skin Appearance) Assessed Assessed -Temperature ([place]-wound Skin No Abnormality No Abnormality Appearance) (Pt Warm) (Pt Warm) -Tenderness on Palpation ([place]-wound No No Skin Appearance) -Ulcer Cleansing Wound Cleanser Soap and Water -Foul Odor after Cleansing No -Anesthetic Used 5% Lidocaine 5% Lidocaine Gel Gel Lower Limb Edema Present Yes NA Left Calf (cm) 39.5 Left Ankle (cm) 24.5 WC - Nurse 2 - General Ulcer CM Notes Start: 09/11/22 16:14 Freq: Status: Active Protocol: Activity Type Activity Date Activity User E-sign Co-sign Detail Recorded Client Recorded Date Recorded By Document 09/13/22 09:09 PL [id number] 09/13/22 09:11 PL Document 09/20/22 12:00 PL [id number] 09/20/22 12:00 PL 09/13/22 09/20/22 09:09 12:00 Wound Center Nurse 2 #10 LL FOOT -Time 08:34 -Correct Patient Yes -Correct Side, Site, Position Yes -Correct Procedure Yes -Procedure Performed Yes No -Type of Procedure Debridement -Clinical Debridement Subcutaneous -Tissue Removed Subcutaneous -Post Debridement (cm) - Length 1.5 1.5 -Post Debridement (cm) - Width 1.4 0.8 -Post Debridement (cm) - Depth 0.1 0.1 -Total Square (Post) (cm) 2.10 1.20 -Area of Debridement (cm) - Length 1.5 -Area of Debridement (cm) - Width 1.4 -Total Square (Area) (cm) 2.10 -Tunneling No -Undermining/Tunneling No -Circular Undermining No -Wound/Ulcer Outcome Not Healed Not Healed -Ulcer Cleansing Rinsed/ Irrigated with Saline -Foul Odor after Cleansing No -Bioengineered Tissue Yes -Type of Bioengineered Tissue Epifix 18mm Disc -Expiration Date 05/10/27 -Product Lot Number [id number] -Percent Used 100 -Bleeding Controlled with Pressure -Treatment Response Procedure Tolerated Well -Debridement - Subq, 1st 20sq cm No -Apply Skin Sub - 1st 25 sq cm - Feet 1 -Epifix 18mm Disc 3 Pain Scale: 0-10 Numeric Is Patient Pain Free? Yes Yes - Nurse 3 - General Ulcer D/C NN Start: 09/11/22 16:14 Freq: Status: Active Protocol: Activity Type Activity Date Activity User E-sign Co-sign Detail Recorded Client Recorded Date Recorded By Document 09/13/22 08:51 VA [id number] 09/13/22 08:51 VA Document 09/20/22 09:32 JOE [id number] 09/20/22 09:32 KR 09/13/22 09/20/22 08:51 09:32 Wound Care Nurse 3 #10 LL FOOT -Ulcer Cleansing Rinsed/ Irrigated with Saline -Foul Odor after Cleansing No -Negative Pressure Wound Therapy N/A -Other Dressing abd pad -Primary Dressing Covered/Secured with Dry Gauze & Dry Gauze & Roll Gauze, Roll Gauze Secured with Tape -Other Covering tom Pain Scale: 0-10 Numeric Is Patient Pain Free? Yes Yes - Visit Discharge Discharge Condition Stable Stable Ambulatory Status Ambulatory Steady Transportation Private Auto Private Auto Medication Reconcilliation completed & Yes provided to patient/care provider Clinical Summary of Care Provided Yes Assessment/Plan Assessment/Plan (1) Diabetic foot ulcer: CODE(S): E11.621 - Type 2 diabetes mellitus with foot ulcer; L97.509 - Non- pressure chronic ulcer of other part of unspecified foot with unspecified severity QUALIFIERS: Diabetes mellitus type: type 2 Laterality: left Non-pressure ulcer stage: with necrosis of bone (2) 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 exposed: CODE(S): L97.522 - 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 exposed (3) 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: CODE(S): Z89.422 - Acquired absence of other left toe(s) (4) Type 2 diabetes mellitus with diabetic polyneuropathy: CODE(S): E11.42 - Type 2 diabetes mellitus with diabetic polyneuropathy (5) Diabetic ulcer 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 Fifth digit amputation noted. Previous A1c from March and May both 10.5%.? He had seen endocrinology and has demonstrated mild reduction of his A1c down to 9.9%.? He had had previous difficulties performing HBO dives due to uncontrolled sugars. Due to his new glucose meter he will be unable to perform further HBO dives. I discussed that despite this minimal improvement in his A1c he needs to continue diet modifications for proper glycemic control to aid in his healing and overall health.?He was encouraged to continue routine follow-ups with park activities coordinator sothat he may get his blood sugars under control and achieve a lower A1c. Infection: During surgical intervention 03/24/22 the tissues demonstrated normal integrity and were not easily dissectible through fascial planes with a finger as seen with typical necrotizing fasciitis cases.?He did however have soft tissue crepitus with foul odor consistent with a gas gangrene, confirmed by radiograph on 03/24/2022.? Bone of the fifth digit and fifth metatarsal head weredusky, discolored, and soft consistent with necrosis/osteomyelitis of the fifth digit and fifth metatarsal head. WBC 16.3 with left shift prior to surgical intervention.?WBC currently within normal limits.? He is finished IV antibiotic course and PICC line removed. Sx Cultures: Culture of wound/ulceration &?Bone culture fifth toe/fifth metatarsal demonstrates staph epi, Enterococcus faecalis, Streptococcus mitis/oralis, Turicella otitidis, Enterococcus casseliflavius, Peptostreptococcus prevotil, Prevotella bivia.? Cultures post surgical clearancedemonstrate no growth. Wound: Wound underwent debridement as noted in clinical panel above today. Healthy granular tissue noted with no localized signs of infection.? No purulentdrainage noted, no malodor noted.? Wound is continuing to granulate in well. He underwent debridement of the necrotic 4th metatarsal head on 05/24/22.?Radiographs were ordered of the left foot 05/31/22. Radiographs demonstrate: Amputation of the fifth metatarsal at the level of the mid diaphysis.?There is interval development of osseous destruction of the base of the fourth proximal phalanx and distal fourth metatarsal suspicious of osteomyelitis. Further debridement was performed on 05/31/22 removing nonviable tissue/bone in the base of his proximal phalanx of the fourth digit.?Wound measures 1.2 cm x 1.1 cm x 0.1 cm.?He was approved for 2 additional epi fix grafts.? Epi fix mesh graft #12 applied to the wound bed at previous visit and was left in place today. He is not to get the dressing wet and to leave the dressings clean, dry, and intact to the left foot.? No expressible purulent drainage noted.?There is continued improvement in the appearance of his wound today with continued reduction in size. I will continue to monitor him for any progressing signs of infection.?He is aware that further surgical intervention may be required pending his progress.? Currently prognosis is good with continued reduction in wound size Dressings: Epi fix mesh graft, Adaptic touch and anchored with Steri-Strips withdry sterile dressing.? He was instructed to keep his dressings clean, dry, and intact to the left foot.?Continue to elevate the left lower extremity at all times of rest.? He was instructed that if his dressing falls off or gets removedprior to his next visit he is to return to Dakin's wet-to-dry dressings.? He voices understanding of that. Patient is to remain nonweightbearing to the left lower extremity with assistance of a knee scooter. He may be partial weight bearing to Left heel for bathroom privileges and transfers. Visiting nursing to assist in dressing changes to the left foot. He will return to the wound care center in 2 weeks for continued localized woundcare and close monitoring. Note: [employer] speech recognition student driving instructor software was used to create portions of this document. Sound-alike and misspelled words, as well as other student driving instructor errors may be contained in the documentation 09/27/22 0955 <Electronically signed by Dona Medina DPM> Cosigner Signature (if applicable): CC: ~ Signed [facility] Work Phone: [phone] 474-286701-16-2023 History of Present illness Narrative* Felicita Cameron, [facility] - 09/24/2022 10:58 AM EST Patient seen by endo pharmacist to address diabetes regimen s/p kidney transplant. HPI: Transplant date: 03/09/2021, Type 2 DM He was diagnosed at age 21. HPI: Mr. Italo Burgos is a 50 year old male with a 30 year history of Diabetes Mellitus Type 2 hyperglycemia who was admitted on 03/09/2021 for donor kidney transplant. 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 Patient does exercise by walking. Last HbA1c was 6.0 on 08/12/2020.He has a family history of diabetes in his brothers and sisters. He is followed by PCP for his diabetes. Goes to park activities coordinator in [place]. His had bariatric, down to 218lbs. Using dexcom now for the last 2 weeks. DIABETIC COMPLICATIONS: Nephropathy: Neuropathy: Current diabetes regimen: Lantus 48 units once daily in morning (increased 2 weeks ago) Humalog 16 units plus SS#2 Having alerts about lows overnight, drinks apple juice. Current prednisone dose: 5mg daily Lab Results Component Value Date HBA1C 10.6 07/13/2022 HBA1C 8.2 07/11/2021 HBA1C 7.5 03/23/2021 HBA1C 6.0 08/12/2020 SMBG: Wearing dexcom, however unable to download custom home installer. Current glucose is 273. Last a1c was elevated A/P: No adjustments today as we have only 1 day of data and pt now has established care with local endo.Recommend to discuss w/ endo about using a glp-1 agonist. F/up: PRN. Diabetes Care Team Hospital Discharge Help Line: [phone] Felicita Cameron, PharmD, BCPS, BCACP BC-ADM, CDCES Endocrine Clinical Mathematical Statistician documented in this encounterMary [facility] Instructions* Patient Instructions* Felicita Cameron RPh - 09/24/2022 10:58 AM EST Talk to your park activities coordinator about starting a glp-1 agonist. Examples include semaglutide (Ozempic)or dulaglutide (Trulicity). This may allow you to reduce or even eventually stop your meal time insulin. documented in this encounterMary [facility] Hospital01-16-2023 History of Present illness Narrative* Alana Kent APRN.WORKFORCE DEVELOPMENT SPECIALIST - 09/24/2022 10:45 AM EST [facility] [place] [facility] Follow up Portions of this note were copied from the last encounter. Changes were made to appropriately reflect updated history and interval events, physical exam, data review, and medical decision making. This is a 51 year old male who presents for follow up of an at risk DD kidney transplant. KDPI 57%.PRA 0%. History of HTN, retinopathy, blind left eye, RLE weakness, CHF, bronchitis, PNA, depression, GERD, HPL, renal calculi, LUANNE and cholecystectomy. HPI: Transplant date: 03/09/21 Original Disease: DM/HTN CMV status: -/+ EBV status: +/+ Induction therapy: Thymo Ureteral Stent: Yes; Removal Date: 03/30/21 CfDNA: Prospera Major events since transplantation: Having slow graft function 03/25/22: Admitted to [facility] 2/2 osteomyelitis s/p amputation of fifth toe. Wound culture +necrotizing fascitis. Discharged with COPAT vanc and ampicillin until end of April. Follow up scheduled with wound clinic, ID and Endocrinology Protocol Bx results: 3-6 mos:07/13/21: Limited sample by light microscopy without diagnostic evidence of acute Rejection. Tubular atrophy and interstitial fibrosis, mild. Arteriolar hyalinosis, focal. 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 Montiel Lab Frequency: Monthly Home BP: 130-150's/60'-70s New Complaints: 1 year 6 month visit Feeling well overall Has had foot wound > 1 year Healing left foot. Wound clinic weekly, reports foot wound 1.2 x 1.2x 1 cm Off MMF approx 5 months with improved wound healing Last lab results from 07/02 Off stating for mild Transaminitis Current Outpatient Medications Medication Sig tacrolimus ER (ENVARSUS XR) 0.75 mg tablet Take 2 tablets by mouth once daily. mycophenolate mofetil (CELLCEPT) 250 mg capsule Take 1 capsule by mouth twice daily. pantoprazole DR (PROTONIX) 20 mg tablet Take 1 tablet by mouth once daily. cholecalciferol (VITAMIN D3) 1,000 unit tab tablet Take 1 tablet by mouth q 24 HR. insulin glargine (LANTUS SOLOSTAR U-100 INSULIN) 100 unit/mL (3 mL) Inject 44 Units subcutaneously every morning. Insulin [place], Disposable, (BD ULTRA-FINE SANDRA PEN NEEDLE) 32 gauge x 5/32 Use as directed four times daily insulin lispro (HUMALOG KWIKPEN INSULIN) 100 unit/mL INJECT 12 to 14 UNITS DIRECTED BREAKFAST, LUNCH, AND DINNER PLUS SLIDING SCALE (MAX 50 UNITS PER DAY) sulfamethoxazole-trimethoprim (BACTRIM) 400-80 mg per tablet Take 1 tablet by mouth once daily. gabapentin (NEURONTIN) 100 mg capsule Take 1 capsule by mouth daily at bedtime for 180 days. losartan (COZAAR) 25 mg tablet Take 1 tablet by mouth once daily. carvedilol (COREG) 25 mg tablet Take 1 tablet by mouth twice daily. buPROPion XL (WELLBUTRIN XL) 300 mg 24 hr tablet Take 1 tablet by mouth once daily. MEDICAL SUPPLY D/C oxygen predniSONE (DELTASONE) 5 mg tablet Take 1 tablet by mouth once daily. Lancets lancets Test Blood Sugar 3 x/day. 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 DX: 250.E11.9. INSULIN DEP: yes glucagon 3 mg/actuation nasal spray (BAQSIMI) Use 1 [place] in the nose as needed for low blood sugar. May repeat after 15 minutes using a new device if there is no response. aspirin 81 mg chewable tablet chew and swallow 1 tablet by mouth once daily. fluticasone (FLONASE) 50 mcg/actuation nasal spray Use 2 Sprays in each nostril once daily. CPAP Initiate Auto PAP @ 5-20 cm of water with humidification. Mask (per patient preference) optional chin strap (if indicated) , filters, tubing, humidifier and lifetime supplies. >Compression Knee Highs 30-40 mm KNEE HIGH COMPRESSION STOCKINGS, 30-40 MM, I DX: EDEMA ACETAMINOPHEN ORAL Take by mouth. 1000 mg bid for pain / aches No current facility-administered medications for this visit. Meds reviewed with Italo Burgos ROS: No Fevers, Chills, No Nausea, vomiting, diarrhea No SOB, chest pain, pressure No edema, skin rash No dysuria, or frequency Weight steady No change appetite All other system reviews negative. Conchis Sheets RN Current Outpatient Medications Medication Sig tacrolimus ER (ENVARSUS XR) 0.75 mg tablet Take 2 tablets by mouth once daily. mycophenolate mofetil (CELLCEPT) 250 mg capsule Take 1 capsule by mouth twice daily. pantoprazole DR (PROTONIX) 20 mg tablet Take 1 tablet by mouth once daily. cholecalciferol (VITAMIN D3) 1,000 unit tab tablet Take 1 tablet by mouth q 24 HR. insulin glargine (LANTUS SOLOSTAR U-100 INSULIN) 100 unit/mL (3 mL) Inject 44 Units subcutaneously every morning. Insulin [place], Disposable, (BD ULTRA-FINE SANDRA PEN NEEDLE) 32 gauge x 5/32 Use as directed four times daily insulin lispro (HUMALOG KWIKPEN INSULIN) 100 unit/mL INJECT 12 to 14 UNITS DIRECTED BREAKFAST, LUNCH, AND DINNER PLUS SLIDING SCALE (MAX 50 UNITS PER DAY) sulfamethoxazole-trimethoprim (BACTRIM) 400-80 mg per tablet Take 1 tablet by mouth once daily. gabapentin (NEURONTIN) 100 mg capsule Take 1 capsule by mouth daily at bedtime for 180 days. losartan (COZAAR) 25 mg tablet Take 1 tablet by mouth once daily. carvedilol (COREG) 25 mg tablet Take 1 tablet by mouth twice daily. buPROPion XL (WELLBUTRIN XL) 300 mg 24 hr tablet Take 1 tablet by mouth once daily. MEDICAL SUPPLY D/C oxygen predniSONE (DELTASONE) 5 mg tablet Take 1 tablet by mouth once daily. Lancets lancets Test Blood Sugar 3 x/day. 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 DX: 250.E11.9. INSULIN DEP: yes glucagon 3 mg/actuation nasal spray (BAQSIMI) Use 1 [place] in the nose as needed for low blood sugar. May repeat after 15 minutes using a new device if there is no response. aspirin 81 mg chewable tablet chew and swallow 1 tablet by mouth once daily. fluticasone (FLONASE) 50 mcg/actuation nasal spray Use 2 Sprays in each nostril once daily. CPAP Initiate Auto PAP @ 5-20 cm of water with humidification. Mask (per patient preference) optional chin strap (if indicated) , filters, tubing, humidifier and lifetime supplies. >Compression Knee Highs 30-40 mm KNEE HIGH COMPRESSION STOCKINGS, 30-40 MM, I DX: EDEMA ACETAMINOPHEN ORAL Take by mouth. 1000 mg bid for pain / aches No current facility-administered medications for this visit. Current medications have been updated and reviewed with patient. ROS: No Fevers, Chills, No Nausea, vomiting, diarrhea No SOB, chest pain, pressure No edema, skin rash No dysuria, or frequency Weight steady No change appetite All other system reviews negative. Physical Exam: Last 3 Encounter BP Readings: Date: BP: 09/24/2022 148/70 08/25/2022 134/72 08/03/2022 117/64 BP 148/70 (BP Site: Left Arm, BP Position: Sitting, BP Cuff Size: Large Adult) Pulse 93 Temp 37C (98.6 F) (Temporal) Ht 172.7 cm (5' 8) Wt 104.1 kg (229 lb 6.4 oz) SpO2 95% BMI 34.88 kg/m Body mass index is 34.88 kg/m . BP w/Orthostatic Vitals Date and Time Orthostatic BP Orthostatic Pulse BP Pulse BP Position BP Site BP Cuff Size 09/24/22 1041 -- -- 148/70 93 Sitting Left Arm Large Adult HEENT: Sclera anicteric, NC/AT Neck: no adenopathy. No elevated JVP CV: RRR no murmurs, rubs, gallops Lungs: Clear to auscultation bilaterally ABD: soft, NT, ND, no masses Allograft: Nontender, wound well healed EXT: no edema NEURO: non focal SKIN: no rash, lesion. Labs: Recent Labs 09/24/22 1011 UGLUC 3+* UBILI Negative UKET Negative UHB Negative UPH 6.0 UPROT Negative Protein/Creat Ratio Date Value 08/03/2022 0.08 mg/mg 07/05/2022 0.12 mg/mg 06/08/2022 0.07 mg/mg 03/08/2022 0.1 12/08/2021 0.1 10/30/2021 0.2 10/19/2021 0.1 09/04/2021 0.1 07/20/2021 0.1 06/19/2021 0.1 05/30/2021 0.1 Creatinine (mg/dL) Date Value 09/15/2022 1.55 08/25/2022 1.40 08/04/2022 1.52 07/02/2022 1.52 06/08/2022 1.58 11/02/2021 1.34 10/25/2021 1.32 10/17/2021 1.27 10/06/2021 1.07 08/30/2021 1.59 BUN (mg/dL) Date Value 09/15/2022 35 08/25/2022 29 08/04/2022 34 11/02/2021 38 10/25/2021 38 10/17/2021 36 Amylase (U/L) Date Value 07/16/2018 21 Lipase (U/L) Date Value 07/16/2018 23 Tacrolimus/FK506 (ng/mL) Date Value 09/15/2022 4.9 08/25/2022 5.0 08/04/2022 4.4 07/02/2022 5.5 11/02/2021 9.5 10/25/2021 9.2 10/17/2021 3.6 10/06/2021 5.2 No results found for: EVERO No results found for: RAPA No results found for: CSA WBC (k/uL) Date Value 09/15/2022 6.50 08/25/2022 6.77 08/04/2022 6.45 11/02/2021 6.06 10/25/2021 5.60 10/17/2021 4.75 Hemoglobin (g/dL) Date Value 09/15/2022 15.7 08/25/2022 15.7 08/04/2022 15.8 11/02/2021 14.8 10/25/2021 14.5 10/17/2021 14.3 Hematocrit (%) Date Value 09/15/2022 49.6 08/25/2022 48.9 08/04/2022 50.1 11/02/2021 48.7 10/25/2021 47.4 10/17/2021 47.1 Platelet Count (k/uL) Date Value 09/15/2022 216 08/25/2022 244 08/04/2022 209 11/02/2021 263 10/25/2021 337 10/17/2021 241 Calcium (mg/dL) Date Value 11/02/2021 9.3 10/25/2021 10.0 10/17/2021 9.4 Calcium, Total (mg/dL) Date Value 09/15/2022 10.0 08/25/2022 9.9 08/04/2022 10.1 Phosphorus (mg/dL) Date Value 09/15/2022 2.9 08/25/2022 2.9 08/04/2022 2.5 11/02/2021 3.5 10/25/2021 2.1 10/17/2021 2.1 PTH, Intact (pg/mL) Date Value 03/03/2022 66 02/13/2022 64 01/26/2022 64 07/28/2021 57 07/18/2021 90 01/06/2019 209 VITAMIN D (ng/mL) Date Value 02/21/2015 14.4 BK Virus DNA Quant (IU/mL) Date Value 08/30/2021 BKV DNA not detected by PCR. 08/24/2021 BKV DNA not detected by PCR. 08/08/2021 BKV DNA not detected by PCR. CMV DNA (IU/mL) (IU/mL) Date Value 11/02/2021 165 10/25/2021 426 10/17/2021 703 No results found for: EBVDNA Assessment & Plan: 51 year old s/p Kidney Transplant: 03/09/2021 (Kidney) 1. Allograft function: - SCr 1.6, stable. U/a without proteinuria. PCR pending 2. Immunosuppression Regimen: Envarsus 1mg. Level 4.9 (will increase to 1.5mg daily) MMF off x 1 year d/t foot ulcer (will restart at low dose as wound is a diabetic ulcer and not currently on antibiotics) Pred 5 3. Hematology: - No anemia or leukopenia 4. Blood pressure: - Controlled on carvedilol and losartan 5. Viral Screening: - BK/CMV negative 6. Lipids/CV risk: - Stopped atorvastatin in Jun d/t elevated LFTs. Will recheck lipid panel 7. Bone health/ Long-term corticosteroid use: - Ca/phos stable Health Maintenance: -Foot wound managed by PCP RTC in 3-4 months Z94.0 Kidney replaced by transplant (primary encounter diagnosis) Z79.899, Z94.0 Immunosuppressive management encounter following kidney transplant E78.2 Mixed hyperlipidemia This patient's labs and imaging were reviewed for maintenance of allograft function, prevention of rejection, therapeutic drug management, and monitoring and treating associated comobidities. This requires medical decision making of high complexity. Alana Kent, BARREL DRAINER.WORKFORCE DEVELOPMENT SPECIALIST documented in this encounterMary Rutan Hospital01-12-2023 Progress note Author Dona Medina [facility] September 20, 2022 9:39am Note Date/Time September 20, 2022 9 :18am [facility] [address] [place] [address] Progress Note - Wound Care 09/20/22 0917 MR#: [id number] Acct: [id number] Name: ITALO BURGOS Rep #:[id number] : 1970 51 From: Dona adams DPM PCP: Dr. Zaida Gaston MD Status:REG R CR Location: History of Present Illness Date of Service: 09/20/22 Chief Complaint: Osteomyelitis of the left foot; diabetic foot ulceration History of Wound: Patient is a 51-year-old male who presents to the wound care center for evaluation for hyperbaric oxygen therapy. He has been seeing Dr. 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 His ulcer is not making the progress that it should. He has a Gustafson stage III ulcer on his left foot. He uses a knee scooter. Left footx-ray from 05/31/22 showed There is amputation of the fifth metatarsal at the level of the mid diaphysis. There is interval development of osseous destruction of the head and distal diaphysis of the fourth metatarsal and base of the fourth proximal phalanx. Arterial study from 01/09/22, Right RANJAN - 1.19, Left RANJAN - NC, Left digital- brachial index is 0.67. The left digital-brachial index is mildly diminished. There is evidence of arterial calcification at ankle level on the left. Arterialflow appears normal at ankle level bilaterally, and at digital level on the right. There is evidence of mild arterial occlusive disease at digital level on the left. MRI of left lower extremity from 10/07/19 showed Marrow edema consistent osteomyelitis of the distal phalanges of the fourth and fifth toes. Soft tissue swelling. He has a history of DM Type II, last HgA1c 10.5 on 05/31/22, Kidney transplant one year ago, peripheral vascular disease, atherosclerotic heart disease, AMI, neuropathy, and GERD. He has received cardiac clearance from Dr. Oneill. Chest x-ray from 05/31/22 is normal. Today he denies fever, chills, nausea, vomiting. Patient has been having issues with his left TM, he was sent to ENT and an ear tube was place in the left ear only on 07/17/22. Patient has been approved for 30 treatment of hyperbaric oxygen therapy. Progress of Wound: Today is the ? treatment of hyperbaric oxygen therapy.? The patient is scheduled for 30 treatments total. Unfortunately the patient had a Dexcom placed on September 06, 2022. This prohibits the patient from participating in hyperbaric oxygen therapy as it is not currently approved. 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 He is pleased with his continued healing progress. He has been changing the outer dressings to the left foot as needed and has left his graft in place.?He denies any constitutional symptoms.?He continues to deny any pain today.?He has no further complaints today. Objective Data Objective Data Vital Signs: Vital Signs Temp Pulse Resp BP 97.0 F L 92 18 156/72 H 09/20/22 08:07 09/20/22 08:07 09/13/22 07:59 09/20/22 08:07 Weight: 102.058 kg Body Mass Index (BMI) 34.2 Physical Exam Narrative Patient is alert oriented to person, place and time.? Patient ambulates with assistance of a knee scooter on the left.? And diabetic shoe on the right. Vascular: There are atrophic changes of the skin such as thinning shiny taut appearance absent digital hair growth.? Pulses are grossly palpable 2 out of 4 dorsalis pedis and posterior tibial bilateral feet.? Mild +1 pitting edema to bilateral lower extremity. Neurologic: Light touch protective sensation completely absent to bilateral lower extremity. Dermatologic: Healed right hallux ulceration.?Digital wounds to left foot healedat this time.?Status post partial fifth ray amputation left foot with healthy granular wound at the distal aspect of the amputation site. No signs of infection. Musculoskeletal: No gross wound forming deformity.?Muscular strength full to bilateral lower extremity compartments.? No crepitus or pain noted to the wound or periwound areas. Const alert, oriented x3 and no apparent distress General Appearance: cooperative HEENT normocephalic Eyes General Eye: normal appearance of both eyes Neck General: normal visual inspection Lymph Lymphatic: no lymphadenopathy noted and no lymphedema noted Resp normal respiratory effort Cardio regular rate and regular rhythm Extremity normal capillary refill, no joint enlargement, no calf tenderness and no pedal edema Skin no rashes or lesions noted, skin turgor normal and no jaundice Wound Narrative: Left foot: Partial fifth ray resection noted.? Wound site measures 1.5 cm x 0.8 cm x 0.1 cm.? There is healthy appearing skin about the ulcerative rim.?There isno erythema, no expressible purulent drainage, no malodor, no other localized signs of infection.? Wound demonstrates healthy granular layer with adequate tissue bleeding. Neuro moves all extremities Debridement Note Debridement Note No debridement was completed: No debridement was completed today Post-Debridement Measurements and Additional Note: Post-Debridement Measurements/Treatment - Nurse 1 - General Ulcer Assessment Start: 09/11/22 16:14 Freq: Status: Active Protocol: OSWALD.PAGE Activity Type Activity Date Activity User E-sign Co-sign Detail Recorded Client Recorded Date Recorded By Document 09/13/22 07:59 [id number] 09/13/22 08:01 Document 09/20/22 08:07 JOE [id number] 09/20/22 08:08 JOE 09/13/22 09/20/22 07:59 08:07 - Today's Visit Information Type of service Follow-up Visit Follow-up Visit (Physician/WORKFORCE DEVELOPMENT SPECIALIST (Physician/WORKFORCE DEVELOPMENT SPECIALIST ) ) Arrival Mode Ambulatory, Ambulatory Walker Patient Identification Verified (Name & Yes ) Patient Requires Transmission-Based Yes Precautions Safety Precautions NA Finger Stick Blood Sugar(mg/dl) (if 220 indicated): Blood Sugar Stated by Patient Height and Weight Body Mass Index (BMI) 34.2 34.2 BMI Classification Obese Obese Vital Signs Temperature (97.8 F-99.1 F) 97.7 F L 97.0 F L Temperature Source Temporal Temporal Pulse Rate (60-100) 88 92 Pulse Location Monitor Monitor Respiratory Rate (12-18) 18 Respiratory rate source Observation Blood Pressure (90/60-120/80) 133/76 H 156/72 H Blood Pressure Mean (mm Hg) 95 100 Source Monitor Monitor Position Semi-Fowlers Sitting Blood Pressure Location Left Arm Right Arm History Since Last Visit- (Skip if this is Patient's initial visit) Have you changed medications since your No No last visit? Any new allergies or adverse reactions No No Had a fall/change in ADL's that may No No increase risk of falls Signs or symptoms of abuse and/or No No neglect since last visit Have you been in the hospital since your No No last visit? Has dressing in place as prescribed Yes Yes Has compression in place as prescribed Yes N/A Has offloadiing in place as prescribed Yes N/A Experienced any changes in pain level or No No management Left Footwear Surgical Shoe Regular Shoe with pressure relief insole Right Footwear Regular Shoe Regular Shoe Pain Scale: 0-10 Numeric Is Patient Pain Free? Yes Yes WC - Nurse 1 - General Ulcer Measurement Start: 09/11/22 16:14 Freq: Status: Active Protocol: Activity Type Activity Date Activity User E-sign Co-sign Detail Recorded Client Recorded Date Recorded By Document 09/13/22 07:59 [id number] 09/13/22 08:01 JF Document 09/20/22 08:07 KR [id number] 09/20/22 08:08 KR 09/13/22 09/20/22 07:59 08:07 Wound Center Nurse 1 #10 LL FOOT -Combined with other wound No -Current Size (cm) - Length 1.3 0.1 -Current Size (cm) - Width 1.1 0.1 -Current Size (cm) - Depth 0.1 0.1 -Total Square Cm 1.43 0.01 -Photo Taken Yes -Epithelialization Small 1-33% -Tunneling No -Undermining/Tunneling No -Circular Undermining No -Exudate Amt Medium -Exudate Type Serosanguineous -Wound Margin Flat & Intact -Granulation Amt Large (67-100%) -Granulation Quality Red -Slough/Fibrin Yes -Necrosis Amt Small (1-33%) -Necrotic Tissue Type Adherent Slough -Structure Exposed N/A -Texture ([place]-wound Skin Appearance) Assessed -Moisture ([place]-wound Skin Appearance) Assessed, Maceration -Color ([place]-wound Skin Appearance) Assessed -Temperature ([place]-wound Skin No Abnormality Appearance) (Pt Warm) -Tenderness on Palpation ([place]-wound No Skin Appearance) -Ulcer Cleansing Wound Cleanser -Foul Odor after Cleansing No -Anesthetic Used 5% Lidocaine Gel Lower Limb Edema Present Yes Left Calf (cm) 39.5 Left Ankle (cm) 24.5 WC - Nurse 2 - General Ulcer CM Notes Start: 09/11/22 16:14 Freq: Status: Active Protocol: Activity Type Activity Date Activity User E-sign Co-sign Detail Recorded Client Recorded Date Recorded By Document 09/13/22 09:09 PL [id number] 09/13/22 09:11 PL 09/13/22 09:09 Wound Center Nurse 2 -Time 08:34 -Correct Patient Yes -Correct Side, Site, Position Yes -Correct Procedure Yes -Procedure Performed Yes -Type of Procedure Debridement -Clinical Debridement Subcutaneous -Tissue Removed Subcutaneous -Post Debridement (cm) - Length 1.5 -Post Debridement (cm) - Width 1.4 -Post Debridement (cm) - Depth 0.1 -Total Square (Post) (cm) 2.10 -Area of Debridement (cm) - Length 1.5 -Area of Debridement (cm) - Width 1.4 -Total Square (Area) (cm) 2.10 -Tunneling No -Undermining/Tunneling No -Circular Undermining No -Wound/Ulcer Outcome Not Healed -Ulcer Cleansing Rinsed/ Irrigated with Saline -Foul Odor after Cleansing No -Bioengineered Tissue Yes -Type of Bioengineered Tissue Epifix 18mm Disc -Expiration Date 05/10/27 -Product Lot Number [id number] -Percent Used 100 -Bleeding Controlled with Pressure -Treatment Response Procedure Tolerated Well -Debridement - Subq, 1st 20sq cm No -Apply Skin Sub - 1st 25 sq cm - Feet 1 -Epifix 18mm Disc 3 Pain Scale: 0-10 Numeric Is Patient Pain Free? Yes - Nurse 3 - General Ulcer D/C NN Start: 09/11/22 16:14 Freq: Status: Active Protocol: Activity Type Activity Date Activity User E-sign Co-sign Detail Recorded Client Recorded Date Recorded By Document 09/13/22 08:51 AK [id number] 09/13/22 08:51 AK 01/05/23 08:51 Wound Care Nurse 3 #10 LL FOOT -Foul Odor after Cleansing No -Negative Pressure Wound Therapy N/A -Primary Dressing Covered/Secured with Dry Gauze & Roll Gauze, Secured with Tape -Other Covering tom Pain Scale: 0-10 Numeric Is Patient Pain Free? Yes WC - Visit Discharge Discharge Condition Stable Ambulatory Status Ambulatory Transportation Private Auto Medication Reconcilliation completed & Yes provided to patient/care provider Clinical Summary of Care Provided Yes Assessment/Plan Assessment/Plan (1) Diabetic foot ulcer: CODE(S): E11.621 - Type 2 diabetes mellitus with foot ulcer; L97.509 - Non- pressure chronic ulcer of other part of unspecified foot with unspecified severity QUALIFIERS: Diabetes mellitus type: type 2 Laterality: left Non-pressure ulcer stage: with necrosis of bone (2) Non-pressure chronic ulcer of other part of left foot with fat layer exposed: CODE(S): L97.522 - Non-pressure chronic ulcer of other part of left foot with fat layer exposed (3) 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: CODE(S): Z89.422 - Acquired absence of other left toe(s) (4) Type 2 diabetes mellitus with diabetic polyneuropathy: CODE(S): E11.42 - Type 2 diabetes mellitus with diabetic polyneuropathy (5) Diabetic ulcer of foot associated with diabetes mellitus due to underlying condition, with necrosis of bone: CODE(S): E08.621 - Diabetes mellitus due to underlying condition with footulcer; L97.504 - Non-pressure chronic ulcer of other part of unspecified foot with necrosis of bone PLAN: Plan Patient seen and evaluated in wound care center He is?s/p I&D gas gangrene left foot with partial fifth ray amputation and excision of chronic diabetic ulceration.? POV #26 (DOS: 03/24/2022) POD #181 Left lower extremity: No edema noted. Fifth digit amputation noted. Previous A1c from March and May both 10.5%.? He had seen endocrinology and has demonstrated mild reduction of his A1c down to 9.9%.? He had had previous difficulties performing HBO dives due to uncontrolled sugars. Due to his new glucose meter he will be unable to perform further HBO dives. I discussed that despite this minimal improvement in his A1c he needs to continue diet modifications for proper glycemic control to aid in his healing and overall health.?He was encouraged to continue routine follow-ups with park activities coordinator sothat he may get his blood sugars under control and achieve a lower A1c. Infection: During surgical intervention 03/24/22 the tissues demonstrated normal integrity and were not easily dissectible through fascial planes with a finger as seen with typical necrotizing fasciitis cases.?He did however have soft tissue crepitus with foul odor consistent with a gas gangrene, confirmed by radiograph on 03/24/2022.? 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 WBC 16.3 with left shift prior to surgical intervention.?WBC currently within normal limits.? He is finished IV antibiotic course and PICC line removed. Sx Cultures: Culture of wound/ulceration &?Bone culture fifth toe/fifth metatarsal demonstrates staph epi, Enterococcus faecalis, Streptococcus mitis/oralis, Turicella otitidis, Enterococcus casseliflavius, Peptostreptococcus prevotil, Prevotella bivia.? Cultures post surgical clearancedemonstrate no growth. Wound: Wound underwent debridement as noted in clinical panel above today. Healthy granular tissue noted with no localized signs of infection.? No purulentdrainage noted, no malodor noted.? Wound is continuing to granulate in well. He underwent debridement of the necrotic 4th metatarsal head on 05/24/22.?Radiographs were ordered of the left foot 05/31/22. Radiographs demonstrate: Amputation of the fifth metatarsal at the level of the mid diaphysis.?There is interval development of osseous destruction of the base of the fourth proximal phalanx and distal fourth metatarsal suspicious of osteomyelitis. Further debridement was performed on 05/31/22 removing nonviable tissue/bone in the base of his proximal phalanx of the fourth digit.?Wound measures 1.5 cm x 1.4 cm x 0.1 cm.?He was approved for 2 additional epi fix grafts.? Epi fix mesh graft #11 applied to the wound bed at previous visit and was left in place today. He is not to get the dressing wet and to leave the dressings clean, dry, and intact to the left foot.? No expressible purulent drainage noted.?There is continued improvement in the appearance of his wound today with continued reduction in size. I will continue to monitor him for any progressing signs of infection.?He is aware that further surgical intervention may be required pending his progress.? Dressings: Epi fix mesh graft, Adaptic touch and anchored with Steri-Strips withdry sterile dressing.? He was instructed to keep his dressings clean, dry, and intact to the left foot.?Continue to elevate the left lower extremity at all times of rest.? He was instructed that if his dressing falls off or gets removedprior to his next visit he is to return to [facility] wet-to-dry dressings.? He voices understanding of that. Patient is to remain nonweightbearing to the left lower extremity with assistance of a knee scooter. He may be partial weight bearing to Left heel for bathroom privileges and transfers. Visiting nursing to assist in dressing changes to the left foot. He will return to the wound care center in 1 week for continued localized wound care and close monitoring. Note: [employer] speech recognition student driving instructor software was used to create portions of this document. Sound-alike and misspelled words, as well as other student driving instructor errors may be contained in the documentation 09/20/22 0939 <Electronically signed by Dona Medina DPM> Cosigner Signature (if applicable): CC: ~ Signed [facility] Work Phone: [phone]) 755-782801-05-2023 Progress note Author Dona Medina [facility] September 13, 2022 9:22am Note Date/Time September 13, 2022 8: 25am [facility] [address] [place] [address] Progress Note - Wound Care 09/13/22 0823 MR#: [id number] Acct: [id number] Name: ITALO BURGOS Rep #:[id number] : 1970 51 From: Dona adams DPM PCP: Dr. Zaida Gaston MD Status:REG R CR Location: History of Present Illness Date of Service: 09/13/22 Chief Complaint: Osteomyelitis of the left foot; diabetic foot ulceration History of Wound: Patient is a 51-year-old male who presents to the wound care center for evaluation for hyperbaric oxygen therapy. He has been seeing Dr. 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 His ulcer is not making the progress that it should. He has a Gustafson stage III ulcer on his left foot. He uses a knee scooter. Left footx-ray from 05/31/22 showed There is amputation of the fifth metatarsal at the level of the mid diaphysis. There is interval development of osseous destruction of the head and distal diaphysis of the fourth metatarsal and base of the fourth proximal phalanx. Arterial study from 01/09/22, Right RANJAN - 1.19, Left RANJAN - NC, Left digital- brachial index is 0.67. The left digital-brachial index is mildly diminished. There is evidence of arterial calcification at ankle level on the left. Arterialflow appears normal at ankle level bilaterally, and at digital level on the right. There is evidence of mild arterial occlusive disease at digital level on the left. MRI of left lower extremity from 10/07/19 showed Marrow edema consistent osteomyelitis of the distal phalanges of the fourth and fifth toes. Soft tissue swelling. He has a history of DM Type II, last HgA1c 10.5 on 05/31/22, Kidney transplant one year ago, peripheral vascular disease, atherosclerotic heart disease, AMI, neuropathy, and GERD. He has received cardiac clearance from Dr. Oneill. Chest x-ray from 05/31/22 is normal. Today he denies fever, chills, nausea, vomiting. Patient has been having issues with his left TM, he was sent to ENT and an ear tube was place in the left ear only on 07/17/22. Patient has been approved for 30 treatment of hyperbaric oxygen therapy. Progress of Wound: Today is the 24th? treatment of hyperbaric oxygen therapy.? The patient is scheduled for 30 treatments total. Unfortunately the patient had a Dexcom placed on September 06, 2022. This prohibits the patient from participating in hyperbaric oxygen therapy as it is not currently approved. Subjective Subjective Patient is a 51-year-old male who presents to the wound care center for follow- up status post I&D of gas gangrene with partial fifth ray resection in March 2022.?He has had some difficulty with his HBO dive in which he crashed due to blood sugars uncontrolled.? He did not complete HBO dive today or yesterday.? Hewas recently evaluated by his park activities coordinator and has had improvement in lowering his A1c.? Due to his new glucose meter he will be unable to continue further HBO dives. He is pleased with his continued healing progress. He has been changing the outer dressings to the left foot as needed.? He denies any constitutional symptoms.?He continues to deny any pain today.?He has no further complaints today. Objective Data Objective Data Vital Signs: Vital Signs Temp Pulse Resp BP 97.7 F L 88 18 133/76 H 09/13/22 07:59 09/13/22 07:59 09/13/22 07:59 09/13/22 07:59 Weight: 102.058 kg Body Mass Index (BMI) 34.2 Physical Exam Narrative Patient is alert oriented to person, place and time.? Patient ambulates with assistance of a knee scooter on the left.? And diabetic shoe on the right. Vascular: There are atrophic changes of the skin such as thinning shiny taut appearance absent digital hair growth.? Pulses are grossly palpable 2 out of 4 dorsalis pedis and posterior tibial bilateral feet.? Mild +1 pitting edema to bilateral lower extremity. Neurologic: Light touch protective sensation completely absent to bilateral lower extremity. Dermatologic: Healed right hallux ulceration.?Digital wounds to left foot healedat this time.?Status post partial fifth ray amputation left foot with healthy granular wound at the distal aspect of the amputation site. No signs of infection. Musculoskeletal: No gross wound forming deformity.?Muscular strength full to bilateral lower extremity compartments.? No crepitus or pain noted to the wound or periwound areas. Const alert, oriented x3 and no apparent distress General Appearance: cooperative HEENT normocephalic Eyes General Eye: normal appearance of both eyes Neck General: normal visual inspection Lymph Lymphatic: no lymphadenopathy noted and no lymphedema noted Resp normal respiratory effort Cardio regular rate and regular rhythm Extremity normal capillary refill, no joint enlargement, no calf tenderness and no pedal edema Skin no rashes or lesions noted, skin turgor normal and no jaundice Wound Narrative: Left foot: Partial fifth ray resection noted.? Wound site measures 1.5 cm x 1.4 cm x 0.1 cm.? There is healthy appearing skin about the ulcerative rim.?There isno erythema, no expressible purulent drainage, no malodor, no other localized signs of infection.? Wound demonstrates healthy granular layer with adequate tissue bleeding. Neuro moves all extremities Debridement Note Debridement Note Wound debrided: Fifth metatarsal amputation stump Laterality: Left Wound Grade/Stage: Gustafson stage III Type of Debridement: Excisional debridement Anesthesia Used: 5% Lidocaine Gel Depth: Down to and including healthy tissue and in the subcutaneous layer Percentage of wound debrided: 100 Instrument Used: 3mm curette Tissue Removed: Fibrous, devitalized subcutaneous, biofilm, slough Severity: Fat Layer Exposed Amount of bleeding with debridement: Mild Bleeding Controlled with: Compression and gauze Patient tolerated procedure: Patient tolerated procedure well Post-Debridement Measurements and Additional Note: Post-Debridement Measurements/Treatment - Nurse 1 - General Ulcer Assessment Start: 09/11/22 16:14 Freq: Status: Active Protocol: HOLLY Activity Type Activity Date Activity User E-sign Co-sign Detail Recorded Client Recorded Date Recorded By Document 09/13/22 07:59 [id number] 09/13/22 08:01 09/13/22 07:59 - Today's Visit Information Type of service Follow-up Visit (Physician/WORKFORCE DEVELOPMENT SPECIALIST ) Arrival Mode Ambulatory, Walker Patient Requires Transmission-Based Yes Precautions Safety Precautions NA Finger Stick Blood Sugar(mg/dl) (if 220 indicated): Blood Sugar Stated by Patient Height and Weight Body Mass Index (BMI) 34.2 BMI Classification Obese Vital Signs Temperature (97.8 F-99.1 F) 97.7 F L Temperature Source Temporal Pulse Rate (60-100) 88 Pulse Location Monitor Respiratory Rate (12-18) 18 Respiratory rate source Observation Blood Pressure (90/60-120/80) 133/76 H Blood Pressure Mean (mm Hg) 95 Source Monitor Position Semi-Fowlers Blood Pressure Location Left Arm History Since Last Visit- (Skip if this is Patient's initial visit) Have you changed medications since your No last visit? Any new allergies or adverse reactions No Had a fall/change in ADL's that may No increase risk of falls Signs or symptoms of abuse and/or No neglect since last visit Have you been in the hospital since your No last visit? Has dressing in place as prescribed Yes Has compression in place as prescribed Yes Has offloadiing in place as prescribed Yes Experienced any changes in pain level or No management Left Footwear Surgical Shoe with pressure relief insole Right Footwear Regular Shoe Pain Scale: 0-10 Numeric Is Patient Pain Free? Yes WC - Nurse 1 - General Ulcer Measurement Start: 09/11/22 16:14 Freq: Status: Active Protocol: Activity Type Activity Date Activity User E-sign Co-sign Detail Recorded Client Recorded Date Recorded By Document 09/13/22 07:59 [id number] 09/13/22 08:01 CARLINE 09/13/22 07:59 Wound Center Nurse 1 #10 LL FOOT -Combined with other wound No -Current Size (cm) - Length 1.3 -Current Size (cm) - Width 1.1 -Current Size (cm) - Depth 0.1 -Total Square Cm 1.43 -Photo Taken Yes -Epithelialization Small 1-33% -Tunneling No -Undermining/Tunneling No -Circular Undermining No -Exudate Amt Medium -Exudate Type Serosanguineous -Wound Margin Flat & Intact -Granulation Amt Large (67-100%) -Granulation Quality Red -Slough/Fibrin Yes -Necrosis Amt Small (1-33%) -Necrotic Tissue Type Adherent Slough -Structure Exposed N/A -Texture (Dunia-wound Skin Appearance) Assessed -Moisture (Dunia-wound Skin Appearance) Assessed, Maceration -Color (Dunia-wound Skin Appearance) Assessed -Temperature (Dunia-wound Skin No Abnormality Appearance) (Pt Warm) -Tenderness on Palpation (Dunia-wound No Skin Appearance) -Ulcer Cleansing Wound Cleanser -Foul Odor after Cleansing No -Anesthetic Used 5% Lidocaine Gel Lower Limb Edema Present Yes Left Calf (cm) 39.5 Left Ankle (cm) 24.5 Assessment/Plan Assessment/Plan (1) Diabetic foot ulcer: CODE(S): E11.621 - Type 2 diabetes mellitus with foot ulcer; L97.509 - Non- pressure chronic ulcer of other part of unspecified foot with unspecified severity QUALIFIERS: Diabetes mellitus type: type 2 Laterality: left Non-pressure ulcer stage: with necrosis of bone (2) Non-pressure chronic ulcer of other part of left foot with fat layer exposed: CODE(S): L97.522 - Non-pressure chronic ulcer of other part of left foot with fat layer exposed (3) 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: CODE(S): Z89.422 - Acquired absence of other left toe(s) (4) Type 2 diabetes mellitus with diabetic polyneuropathy: CODE(S): E11.42 - Type 2 diabetes mellitus with diabetic polyneuropathy (5) Diabetic ulcer of foot associated with diabetes mellitus due to underlying condition, with necrosis of bone: CODE(S): E08.621 - Diabetes mellitus due to underlying condition with footulcer; L97.504 - Non-pressure chronic ulcer of other part of unspecified foot with necrosis of bone PLAN: Plan Patient seen and evaluated in wound care center He is?s/p I&D gas gangrene left foot with partial fifth ray amputation and excision of chronic diabetic ulceration.? POV #25 (DOS: 03/24/2022) POD #174 Left lower extremity: No edema noted. Fifth digit amputation noted. Previous A1c from March and May both 10.5%.? He had seen endocrinology and has demonstrated mild reduction of his A1c down to 9.9%.? He had had previous difficulties performing HBO dives due to uncontrolled sugars. Due to his new glucose meter he will be unable to perform further HBO dives. I discussed that despite this minimal improvement in his A1c he needs to continue diet modifications for proper glycemic control to aid in his healing and overall health.?He was encouraged to continue routine follow-ups with park activities coordinator sothat he may get his blood sugars under control and achieve a lower A1c. Infection: During surgical intervention 03/24/22 the tissues demonstrated normal integrity and were not easily dissectible through fascial planes with a finger as seen with typical necrotizing fasciitis cases.?He did however have soft tissue crepitus with foul odor consistent with a gas gangrene, confirmed by radiograph on 03/24/2022.? Bone of the fifth digit and fifth metatarsal head weredusky, discolored, and soft consistent with necrosis/osteomyelitis of the fifth digit and fifth metatarsal head. WBC 16.3 with left shift prior to surgical intervention.?WBC currently within normal limits.? He is finished IV antibiotic course and PICC line removed. Sx Cultures: Culture of wound/ulceration &?Bone culture fifth toe/fifth metatarsal demonstrates staph epi, Enterococcus faecalis, Streptococcus mitis/oralis, Turicella otitidis, Enterococcus casseliflavius, Peptostreptococcus prevotil, Prevotella bivia.? Cultures post surgical clearancedemonstrate no growth. Wound: Wound underwent debridement as noted in clinical panel above today. Healthy granular tissue noted with no localized signs of infection.? No purulentdrainage noted, no malodor noted.? Wound is continuing to granulate in well. He underwent debridement of the necrotic 4th metatarsal head on 05/24/22.?Radiographs were ordered of the left foot 05/31/22. Radiographs demonstrate: Amputation of the fifth metatarsal at the level of the mid diaphysis.?There is interval development of osseous destruction of the base of the fourth proximal phalanx and distal fourth metatarsal suspicious of osteomyelitis. Further debridement was performed on 05/31/22 removing nonviable tissue/bone in the base of his proximal phalanx of the fourth digit.?Wound measures 1.5 cm x 1.4 cm x 0.1 cm.?He was approved for 2 additional epi fix grafts.? Epi fix mesh graft #11 applied to the wound bed today. He is not to getthe dressing wet and to leave the dressings clean, dry, and intact to the left foot.? No expressible purulent drainage noted.?There is continued improvement inthe appearance of his wound today with continued reduction in size. I will continue to monitor him for any progressing signs of infection.?He is aware thatfurther surgical intervention may be required pending his progress.? Dressings: Epi fix mesh graft, Adaptic touch and anchored with Steri-Strips withdry sterile dressing.? He was instructed to keep his dressings clean, dry, and intact to the left foot.?Continue to elevate the left lower extremity at all times of rest.? He was instructed that if his dressing falls off or gets removedprior to his next visit [facility] He voices understanding of that. Patient is to remain nonweightbearing to the left lower extremity with assistance of a knee scooter. He may be partial weight bearing to Left heel for bathroom privileges and transfers. Visiting nursing to assist in dressing changes to the left foot. He will return to the wound care center in 1 week for continued localized wound care and close monitoring. Note: [employer] speech recognition student driving instructor software was used to create portions of this document. Sound-alike and misspelled words, as well as other student driving instructor errors may be contained in the documentation 09/13/22921 <Electronically signed by Dona Medina DPM> Cosigner Signature (if applicable): CC: ~ Signed [facility] Work Phone: 1([phone]) 776-316501-03-2023 Progress note Author Jenna Bedoya [facility] September 11, 2022 9:55am Note Date/Time September 11, 2022 8: 18am [facility] [address] [place] [address] Progress Note - Wound Care HBO 09/11/22816 MR#: [id number] Acct: [id number] Name: ITLAO BURGOS Rep #:[id number] : 1970 51 From: Jenna cohcran NP [employer] PCP: Dr. Zaida Gaston MD Status:PRE R CR Location: History of Present Illness Date of Service: 09/06/22 Chief Complaint: Osteomyelitis of the left foot; diabetic foot ulceration History of Wound: Patient is a 51-year-old male who presents to the wound care center for evaluation for hyperbaric oxygen therapy. He has been seeing Dr. 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 His ulcer is not making the progress that it should. He has a Gustafson stage III ulcer on his left foot. He uses a knee scooter. 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 There is interval development of osseous destruction of the head and distal diaphysis of the fourth metatarsal and base of the fourth proximal phalanx. Arterial study from 01/09/22, Right RANJAN - 1.19, Left RANJAN - NC, Left digital- brachial index is 0.67. The left digital-brachial index is mildly diminished. There is evidence of arterial calcification at ankle level on the left. Arterialflow appears normal at ankle level bilaterally, and at digital level on the right. There is evidence of mild arterial occlusive disease at digital level on the left. MRI of left lower extremity from 10/07/19 showed Marrow edema consistent osteomyelitis of the distal phalanges of the fourth and fifth toes. Soft tissue swelling. He has a history of DM Type II, last HgA1c 10.5 on 05/31/22, Kidney transplant one year ago, peripheral vascular disease, atherosclerotic heart disease, AMI, neuropathy, and GERD. He has received cardiac clearance from Dr. Oneill. Chest x-ray from 05/31/22 is normal. Today he denies fever, chills, nausea, vomiting. Patient has been having issues with his left TM, he was sent to ENT and an ear tube was place in the left ear only on 07/17/22. Patient has been approved for 30 treatment of hyperbaric oxygen therapy. Progress of Wound: Today is the 24th? treatment of hyperbaric oxygen therapy.? The patient is scheduled for 30 treatments total. Unfortunately the patient had a Dexcom placed on September 06, 2022. This prohibits the patient from participating in hyperbaric oxygen therapy as it is not currently approved. Objective Data Objective Data Vital Signs: Vital Signs Temp Pulse Resp BP 95.8 F L 69 17 126/72 H 09/09/22 00:22 09/09/22 00:22 09/09/22 00:22 09/09/22 00:22 Weight: 225 lb Body Mass Index (BMI) 34.2 Exam Physical Exam Const alert, oriented x3 and no apparent distress HEENT HEENT Narrative: Tympanostomy tube present and patent left TM Psych mental status grossly normal, thought process normal, cooperative, affect normaland speech normal Assessment/Plan Assessment/Plan (1) Osteomyelitis of metatarsal: CODE(S): M86.9 - Osteomyelitis, unspecified (2) 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 exposed: CODE(S): L97.522 - 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 exposed (3) Type 2 diabetes mellitus with diabetic polyneuropathy: CODE(S): E11.42 - Type 2 diabetes mellitus with diabetic polyneuropathy PLAN: Plan Unable to dive until Dexcom has been removed. 09/11/22 0955 <Electronically signed by Jenna Bedoya NP [employer]> Cosigner Signature (if applicable): CC: ~ Signed [facility] Work Phone: 1([phone]) 159-400112-17-2022 History of Present illness Narrative* Zaida Gaston MD - 08/25/2022 9:54 AM EST Reason for Visit Patient presents with: Follow Up Italo Burgos is a 51 year old male who presents here today for Above Complaints.. Health Maintenance HEPATITIS A(1 of 2 - Risk 2-dose series) SHINGRIX VACCINE(1 of 2) COVID-19 VACCINE(4 - Booster) INFLUENZA(1) DIABETIC FOOT EXAM PNEUMOCOCCAL(3 - PPSV23 if available, else PCV20) URINE ALBUMIN:CREATININE RATIO HPI Diabetes Mellitus: Recently counseled on with the pharmacist. (08/24/22) Mornin Lunch: 160 Dinner: - Bedtime: 200 Breakfast: Eggs, toast, bonds, cup of milk Lunch: Canned chicken and egg with patterson Dinner: Hamburger, chicken, mash potatoes, green beans Snacks: crackers Recently increased lantus (44 units) - tolerating changes well. Still on 12- 14 units humalog. Notices improvement in fasting glucose levels since pharmacy visit. Denies any recent low spells since Saturday. Verna is trying to get him the CGM. HBO (hyperbaric oxygen) treatment: 5 days a week - 2 hours each visit. Diabetic foot: Sees diabetic wound clinic. Sees weekly on . Improving well. Recent measureof wound is 1.4 by 1.0. (Initially was 4 cm). Currently wrapped and supported in a foot brace - tolerating well. HTN: BP controlled today 134/72. Checks BP at home every day. Averages 130/60s. Compliant with medications. Denies any chest pain, palpitations, or edema. No SOB. Careful with diet to avoid salt, trying to eat more fruits and vegetables. Denies exercise at this time. MOOD: Stable. Tolerating Wellbutrin well. Voices no issues. No problem-specific Assessment & Plan notes found for this encounter. PAST MEDICAL HISTORY Diagnosis Date Acute diastolic (congestive) heart failure (HCC) Bronchitis Chronic kidney failure, stage 4 (severe) (HCC) Depression Detached retina DM type 2, goal HbA1c < 7% (HCC) ESRD (end stage renal disease) (HCC) GERD (gastroesophageal reflux disease) Hyperlipidemia Kidney stones LUANNE (obstructive sleep apnea) PNA (pneumonia) Proliferative retinopathy 02/10/2019 Snoring Unspecified essential hypertension Vitamin D deficiency PAST SURGICAL HISTORY Procedure Laterality Date AMPUTATION TOE,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 08/08/2018 Done at [facility] by Satish Phan MD CHOLECYSTECTOMY 1998 Cholecystectomy COLONOSCOPY 12/04/2018 CYSTO W/COMPLEX REMOVAL STONE & STENT 1999 EGD 12/04/2018 PAST SURGICAL HISTORY OF Left 2012 & 2014 removal eye fluid with instillation oil FAMILY HISTORY Problem Relation Age of Onset Colon Cancer Father 53 Diabetes Brother 52 Diabetes Sister Diabetes Mother 78 Heart Attack Mother Cancer Brother 49 lung Diabetes Son Social History Tobacco Use Smoking status: Never Smokeless tobacco: Current Types: Snuff Tobacco comments: snuff x 33 years Vaping Use Vaping Use: Never used Substance Use Topics Alcohol use: Not Currently Drug use: No Past medical history, appointments, medications, allergies reviewed. Pertinent Lab/Diagnostic Studies are reviewed and discussed today Current Outpatient Medications: cholecalciferol (VITAMIN D3) 1,000 unit tab tablet insulin glargine (LANTUS SOLOSTAR U-100 INSULIN) 100 unit/mL (3 mL) Insulin [place], Disposable, (BD ULTRA-FINE SANDRA PEN NEEDLE) 32 gauge x 5/32 insulin lispro (HUMALOG KWIKPEN INSULIN) 100 unit/mL sulfamethoxazole-trimethoprim (BACTRIM) 400-80 mg per tablet gabapentin (NEURONTIN) [address] (PROTONIX) 20 mg tablet losartan (COZAAR) 25 mg tablet carvedilol (COREG) 25 mg tablet buPROPion XL (WELLBUTRIN XL) 300 mg 24 hr tablet MEDICAL SUPPLY predniSONE (DELTASONE) 5 mg tablet Lancets lancets Blood-Glucose Meter monitoring kit blood sugar diagnostic (BLOOD GLUCOSE TEST) test strip blood sugar diagnostic (BLOOD GLUCOSE TEST) test strip glucagon 3 mg/actuation nasal spray (BAQSIMI) aspirin 81 mg chewable tablet fluticasone (FLONASE) 50 mcg/actuation nasal spray CPAP >Compression Knee Highs 30-40 mm ACETAMINOPHEN ORAL tacrolimus ER (ENVARSUS XR) 1 mg tablet mycophenolate mofetil (CELLCEPT) 250 mg capsule Review of Systems CONSTITUTIONAL: No fevers, chills, night sweats, unintended weight loss CARDIOVASCULAR: No chest pain, dyspnea, palpitations, orthopnea, PND, ankle edema. PULM: No dyspnea. Chronic dry cough. GI: No dysphagia/odynophagia, problematic reflux, constipation, diarrhea, changes in stool habits, hematochezia, melena. : Hx of kidney transplant (2020). Hx of chronic microscopic hematuria. Notes year long chronic kidney stone. No new urinary complaints, including dysuria, gross hematuria or pyuria. NEURO: No new balance problems, peripheral weakness/paresthesias or numbness of concern. Physical Exam BP 134/72 (BP Site: Left Arm, BP Position: Sitting, BP Cuff Size: Large Adult) Pulse 84 Temp 36.8 C (98.3 F) (Temporal) Resp 16 Wt 101.6 kg (224 lb) BMI 34.06 kg/m General appearance: Well appearing, alert, in no acute distress, well nourished. Skin: Skin color, texture, turgor normal, no suspicious rashes or lesions Head: Normocephalic, no masses, lesions, tenderness or abnormalities Eyes: Anicteric sclera. Pupils are equally round and reactive to light. Extraocular movements are intact. Vision loss via left eye. Lungs: Lungs clear to auscultation. No wheezing, rhonchi, rales Heart: RRR without murmur, gallop, or rubs. Extremities: No deformities, edema, skin discoloration, clubbing or cyanosis. Good capillary refill. Feet: Left foot ucler. Currently wrapped and supported in foot brace. ASSESSMENT/PLAN: 1. Diabetic ulcer of left foot associated with type 1 diabetes mellitus, unspecified part of foot, unspecified ulcer stage (HCC) - ICD9: 250.81, 707.15, ICD10: E10.621, L97.529 (primary diagnosis) He was encouraged to continue to be carefull about his feet once the healing is complete 2. Other hyperlipidemia - ICD9: 272.4, ICD10: E78.49 HPL: Reviewed test results with patient , takes medications regularly , does not report side effects. Conscious to avoid red meats, full fat dairy and its by products. Exercising 3 to 5 times a week. 3. Hypertension goal BP (blood pressure) < 140/90 - ICD9: 401.9, ICD10: I10 - good control - Recommended regular aerobic exercise. - Recommend home blood pressure monitoring, to bring results in on next visit - Goal of BP <130/80 4. Diabetic polyneuropathy associated with type 2 diabetes mellitus (HCC) - ICD9: 250.60, 357.2, ICD10: E11.42 Controlled. - Continue current medications 5. 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 (HCC) - ICD9: 585.6, V45.11, ICD10: N18.6, Z99.2 S/p transplant he, has been doing well 6. Type 1 diabetes mellitus on insulin therapy (HCC) - ICD9: 250.01, ICD10: E10.9 Controlled. - Continue current medications 7. Moderate episode of recurrent major depressive disorder (HCC) - ICD9: 296.32, ICD10: F33.1 he is doing well with the wellbutrin to cont the same Zaida Gaston MD documented in this encounterMary [facility]12-[facility]22 Miscellaneous Notes* Telephone Encounter - Verna Jensen RPh - 08/23/2022 4:25 PM EST PharmMery submitted paperwork through [employer] to order the Dexcom G6 CGM system for patient. Applied through [employer]. Verna Jensen PharmD, [facility] Primary Care Clinical Pharmacist documented in this encounterMary [facility]an Hospital12-15-2022 History of Present illness Narrative* Verna Jensen RPh - 08/23/2022 3:00 PM EST Primary Care Pharmacy Visit CC (Reason for Consult): Diabetes Goal: A1c < 7% Collaborating Provider: Dr. Gaston Last Provider Visit: 07/13/22 Italo Burgos is a 51 year old male presenting for initial visit: This initial consult was conducted in person with the patient where the consult agreement was explained. The patient may decline orcancel the agreement at any time. After consideration, the patient consented to the pharmacy consult agreement and agreed to allow medications be collaboratively managed by a pharmacist. Patient is presenting today for initial pharmacotherapy management appointment for diabetes. At last PCP appt, patient referred to PharmD for DM mngt. Subjective: HPI: Has had DM for >35 years (was diagnosed when 21 yo). Not confirmed if T1 vs T2DM, has heard different diagnoses. Personal understanding of DM: It can mess you up. He lost his kidney and his left eye. His legs are numb all the time, can't feel anything. Admits he was not great at taking meds in the past but now is much better with prioritizing meds. Personal goals: none at this time. He has a foot wound, he wants to focus on getting that healed. Wants to focus on getting foot healed. Has appointment to see [place] [facility] on 09/06 to establish care. Current DM Medications: Insulin glargine (Lantus) 50 units QAM (taking 40 units QAM) Insulin lispro (Humalog) 12-14 units + SSI TIDAC (typically taking 15 units TIDAC but does report using sliding scale; takes 5 mins before eating; SSI = 2 units for every 50 pts >150 pts) Current HTN Medications: Losartan 25mg daily Carvedilol 25mg BID GLYCEMIC CONTROL: Glucometer present at visit: No SMBG s: reports checking BG 4x/day; states FBGs usually 200s-300s; before lunch usually 100s-200s; before dinner usually lower 200s; HS usually high 100s or 200s Hypoglycemia: had a low on Saturday in AM, went to 75 mg/dL; felt sweaty and hungry How corrected: hard candy Preventative Medications: On TOM/ARB: Yes On Statin: No ROS: Patient denies CP, SOB, VELASCO, blurred vision, dizziness or lightheadedness Patient denies symptoms of hypoglycemia (sweating, anxiety, palpitations, hunger, and tremor) Patient denies symptoms of hyperglycemia (polyuria, polydipsia, polyphagia) Patient denies potential medication adverse effects DIET/EXERCISE/SOCIAL Hx: Doesn't eat bread or noodles; rarely has mashed potatoes Breakfast: fried egg, 1 piece bonds, cup milk Lunch: chicken, boiled egg, milk Dinner: hamburger; chicken; fish; corn; green beans Snacks: cup sugar free pudding before bed Beverages: sugar free grape Mir-Aid (~16 oz), 1-2 glasses water Exercise: limited, uses scooter Tobacco: none; used to chew Alcohol: none Illicits: none MEDICATIONS: Pill bottles are present Adherence: denies missed doses Pharmacy: [facility]; Kiya is alternative Rx coverage: [facility] Medicare + Medicaid Affordability: no issues Diabetes supplies: [employer] Organization System: pill boxes ACTIVE PROBLEM LIST Uncontrolled Type 2 Diabetes Mellitus With Complication, With Long-Term Current Use of Insulin Hypertension Goal Bp (Blood Pressure) < 140/90 Other Hyperlipidemia Ed (Erectile Dysfunction) Lower Urinary Tract Symptoms (Luts) History of Kidney Stones Microscopic Hematuria Diabetic Polyneuropathy Associated With Type 2 Diabetes Mellitus ([facility]) Nausea Vomiting Moderate Episode of Recurrent Major Depressive Disorder ([facility]) Right Leg Weakness Gait Instability Ckd (Chronic Kidney Disease) Requiring Chronic Dialysis ([facility]) Kidney Transplant Recipient Type 1 Diabetes Mellitus On Insulin Therapy ([facility]) PAST MEDICAL HISTORY Diagnosis Date Acute diastolic (congestive) heart failure ([facility]) Bronchitis Chronic kidney failure, stage 4 (severe) ([facility]) Depression Detached retina DM type 2, goal HbA1c < 7% ([facility]) ESRD (end stage renal disease) ([facility]) GERD (gastroesophageal reflux disease) Hyperlipidemia Kidney stones LUANNE (obstructive sleep apnea) PNA (pneumonia) Proliferative retinopathy 02/10/2019 Snoring Unspecified essential hypertension Vitamin D deficiency ALLERGIES No Known Allergies Medication List Medication Directions Comments Action/Plan >Compression Knee Highs 30-40 mm KNEE HIGH COMPRESSION STOCKINGS, 30-40 MM, I DX: EDEMA supplies ACETAMINOPHEN ORAL Take by mouth. 1000 mg bid for pain / aches Has for PRN use aspirin 81 mg chewable tablet chew and swallow 1 tablet by mouth once daily. Taking QAM blood sugar diagnostic (BLOOD GLUCOSE TEST) test strip TEST BLOOD SUGAR 3 TIMES PER DAY. DX: 250.E11.9. INSULIN DEP: yes supplies blood sugar diagnostic (BLOOD GLUCOSE TEST) test strip One Touch Verio preferred - Kit - Dx E11.8 Insulin Dependent, Test blood sugar three times a day supplies Blood-Glucose Meter monitoring kit Glucose Meter of Choice, One Touch Verio preferred - Kit - Dx E11.8 Insulin Dependent, Test blood sugar three times a day supplies buPROPion XL (WELLBUTRIN XL) 300 mg 24 hr tablet Take 1 tablet by mouth once daily. Taking QAM for mood carvedilol (COREG) 25 mg tablet Take 1 tablet by mouth twice daily. Taking BID CPAP Initiate Auto PAP @ 5-20 cm of water with humidification. Mask (per patient preference) optional chin strap (if indicated) , filters, tubing, humidifier and lifetime supplies. supplies fluticasone (FLONASE) 50 mcg/actuation nasal spray Use 2 Sprays in each nostril once daily. Has for PRN use; not present Updated med list as PRN gabapentin (NEURONTIN) 100 mg capsule Take 1 capsule by mouth daily at bedtime for 180 days. Taking QHS glucagon (GLUCAGON EMERGENCY KIT, HUMAN,) 1 mg injection Inject (1)one mg for insulin shock. Does not have, reports having the nasal spray Removed from med list glucagon 3 mg/actuation nasal spray (BAQSIMI) Use 1 [place] in the nose as needed for low blood sugar. May repeat after 15 minutes using a new device if there is no response. Has on hand for emergencies insulin glargine (LANTUS SOLOSTAR U-100 INSULIN) 100 unit/mL (3 mL) Inject 50 Units subcutaneously every morning. Taking 40 units QAM insulin lispro (HUMALOG KWIKPEN INSULIN) 100 unit/mL INJECT 12 to 14 UNITS DIRECTED BREAKFAST, LUNCH, AND DINNER PLUS SLIDING SCALE (MAX 50 UNITS PER DAY) Taking 15 units with meals Insulin [place], Disposable, (BD ULTRA-FINE SANDRA PEN NEEDLE) 32 gauge x 5/32 Use as directed four times daily supplies Lancets lancets Test Blood Sugar 3 x/day. Dx E11.8 Insulin Dependent, One Touch Verio brand preferred supplies losartan (COZAAR) 25 mg tablet Take 1 tablet by mouth once daily. Taking QAM MEDICAL SUPPLY D/C oxygen supplies mycophenolate mofetil (CELLCEPT) 250 mg capsule Take 2 capsules by mouth twice daily. Currently on hold (states was placed on hold back in June). On hold due to wound healing issues Will confirm with transplant team that med should be held and to update med list accordingly pantoprazole DR (PROTONIX) 20 mg tablet Take 1 tablet by mouth once daily. Taking QAM; said his team tried to take him off it at one point but had really bad GI issues predniSONE (DELTASONE) 5 mg tablet Take 1 tablet by mouth once daily. Taking 1 tab daily; bottles says to follow taper sulfamethoxazole-trimethoprim (BACTRIM) 400-80 mg per tablet Take 1 tablet by mouth once daily. duplicate sulfamethoxazole-trimethoprim (BACTRIM) 400-80 mg per tablet Take 1 tablet by mouth once daily. Taking daily QAM; prescribed by Meli Bolaños (transplant) tacrolimus ER (ENVARSUS XR) 1 mg tablet Take 1 tablet by mouth once daily. Taking as directed. Pillbottle states to take 4 tabs once daily but patient reports transplant team reduced dose to 1 tab daily in June 2022 Rx meds not listed in EPIC: - Atorvastatin on hold per transplant team (confirmed with office visit on 07/05, held for transaminitis) OTCs: vitamin D3 1000 international unit(s) daily Herbals: none Objective: Exam: Last 3 Encounter BP Readings: Date: BP: 08/03/2022 117/64 07/13/2022 152/80 07/05/2022 114/65 Wt: 101.3 kg (223 lb 6.4 oz) BMI: 33.97 kg/(m^2) LABS: Reviewed Lab Results Component Value Date HBA1C 10.6 07/13/2022 HBA1C 8.2 07/11/2021 HBA1C 7.5 03/23/2021 HBA1C 6.0 08/12/2020 CMP: Glucose 235 08/04/2022 BUN 34 08/04/2022 Creatinine 1.52 08/04/2022 Sodium 139 08/04/2022 Potassium 5.2 08/04/2022 Chloride 107 08/04/2022 CO2 Content, Venous 24 08/04/2022 Protein, Total 7.2 08/04/2022 Albumin 4.0 08/04/2022 Calcium 10.1 08/04/2022 Alkaline Phosphatase 199 08/04/2022 Bilirubin, Total 0.4 08/04/2022 AST 26 08/04/2022 ALT 36 08/04/2022 Estimated Creatinine Clearance: 64.9 mL/min (A) (based on SCr of 1.52 mg/dL (H)). Lab Results Component Value Date CHOL 149 03/03/2022 CHOL 141 07/28/2021 LDL 82 03/03/2022 LDL 70 07/28/2021 HDL 48 03/03/2022 HDL 52 07/28/2021 TG 97 03/03/2022 TG 94 07/28/2021 The 10-year ASCVD risk score (Chan LIMA, et al., 2019) is: 6.3% Values used to calculate the score: Age: 51 years Sex: Male Is Non- : No Diabetic: Yes Tobacco smoker: No Systolic Blood Pressure: 117 mmHg Is BP treated: Yes HDL Cholesterol: 48 mg/dL Total Cholesterol: 149 mg/dL Albumin/Creat Ratio (mg/g) Date Value 07/11/2021 25 PHARMACOTHERAPY ASSESSMENT/PLAN: 1. Type 1 diabetes mellitus on insulin therapy (HCC) - ICD9: 250.01, ICD10: E10.9 (primary diagnosis) A1c goal < 7%; uncontrolled (last A1c 10.6%); reported SMBGs elevated; not having frequent lows;patient reports dx of T1 and T2, uncertain which [place] has [place] will increase basal insulin today and order CGM; discussed carb counting and dosing insulin accordingly - patient said he would think about whether or not he is open to this; will f/up a fter endo appt and determine at that time if patient will continue f/up with PhramD or stay with endo INCREASE Lantus to 44 units daily CONTINUE Humalog 12-14 units + SSI TIDAC Diabetic Education given re: disease pathology, signs of high blood sugar, signs and symptoms and management of hypoglycemia, risks of poor control, diabetic diet with basic carbohydrate counting, need for aerobic exercise and weight loss, and timing for home glucose monitoring with a review of target ranges Will order Dexcom G6 CGM Stressed importance of BG control on assisting with foot wound healing Advised patient to discuss the following with park activities coordinator at upcoming appt: consider labwork todetermine if T1 vs T2? Thoughts on starting GLP1 off-label for added CV benefits and weight loss? ACEi/ARB for renal protection: yes, managed by transplant Statin: no, on hold as of Jun 2022 for transaminitis HbA1c: due 10/13/22 2. Medication management - ICD9: V58.69, ICD10: Z79.899 Reviewed all medications, indications, dosing, frequency, administration with patient. Medication list updated as described above. Confirmed with Transplant chart note that atorvastatin is held/stopped at this time. Did not see documentation regarding Cellcept. Will reach out to transplant team to confirm that patient should NOTbe taking Cellcept and request that med list be updated accordingly Follow-up Patient is scheduled to see PCP team on 08/25. Patient to have f/up with PharmD team on 10/04/22. Patient verbalized understanding of instructions. Verna Jensen, GianfrancoD, [facility] Primary Care Clinical Pharmacist The majority of the pharmacy visit (> 50%) was spent counseling and/or coordinating care for thepatient. interaction: face to face time was 70 minutes. documented in this encounterMary [facility]12-15-2022 Instructions* Patient Instructions* Verna Jensen RPh - 08/23/2022 3:00 PM EST INCREASE Lantus to 44 units once daily. CONTINUE taking Humalog plus sliding scale with meals. Try to incorporate more non-starchy vegetables into your diet. Drink more water. Cut back on Mir-Aid. At your upcoming endocrinology appointment, ask your doctor to consider doing labwork to help determine if you have Type 1 diabetes vs Type 2 diabetes. You could potentially receive some benefit froma medication like Ozempic or Trulicity. documented in this encounterMary [facility]12-15-2022 Miscellaneous Notes* Telephone Encounter - Zaida Gaston MD - 08/23/2022 8:09 AM EST Noted Regards, Zaida Gaston MD * Telephone Encounter - Josseline Murphy RN - 08/20/2022 2:04 PM EST Felicita WORTHINGTONmachining department supervisor from [facility] calls to report that patient was discharged from [facility]. Patient has skin graft on left lower extremity. Patient feels like he can do wound care onhis own and does not feel that he needs them to come into his home anymore to help. Josseline Murphy RN documented in this encounterMary [facility]11-29-2022 Miscellaneous Notes* Telephone Encounter - Anita Holbrook LPN - 08/07/2022 9:03 AM EST Popeye with [facility] called and the labs requested earlier did not go thru. Pt identified by name and date of . Requested 3 months back on labs. Copied and faxed to [phone]. Done. Anita Holbrook LPN documented in this encounterMary Rutan Hospital11-28-2022 Miscellaneous Notes* Telephone Encounter - Jenae Cruz LPN - 08/06/2022 9:48 AM EST Popeye from [facility] calling received referral and asking for copy of lab to be faxed to [phone]. Printed labs from 08/04/2022 and faxed as requested. documented in this encounterMary Rutan Hospital11-25-2022 History of Present illness Narrative* Meli Bolaños APRN.WORKFORCE DEVELOPMENT SPECIALIST - 08/03/2022 8:47 AM EST [facility] [place] [facility] Follow up Portions of this note were copied from the last encounter. Changes were made to appropriately reflect updated history and interval events, physical exam, data review, and medical decision making. This is a 51 year old male who presents for follow up of an at risk DD kidney transplant. KDPI 57%.PRA 0%. History of HTN, retinopathy, blind left eye, RLE weakness, CHF, bronchitis, PNA, depression, GERD, HPL, renal calculi, LUANNE and cholecystectomy. HPI: Transplant date: 03/09/21 Original Disease: DM/HTN CMV status: -/+ EBV status: +/+ Induction therapy: Thymo Ureteral Stent: Yes; Removal Date: 03/30/21 CfDNA: [place] Major events since transplantation: Having slow graft function 03/25/22: Admitted to [facility] 2/2 osteomyelitis s/p amputation of fifth toe. Wound culture +necrotizing fascitis. Discharged with [facility] vanc and ampicillin until end of April. Follow up scheduled with wound clinic, ID and Endocrinology Protocol Bx results: 3-6 mos:07/13/21: Limited sample by light microscopy without diagnostic evidence of acute Rejection. Tubular atrophy and interstitial fibrosis, mild. Arteriolar hyalinosis, focal. 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 Montiel Lab Frequency: Monthly Home BP: 120's/60's New Complaints: Feeling well overall Healing left foot. Continues with hyperbaric therapy. Awaiting PT. Completed all antibiotic therapy. Last lab results from 07/02 Will go to [facility] in [place] to establish with Endocrinology. Last A1c from 07/13 at 10.6 Current Outpatient Medications Medication Sig Insulin [place], Disposable, (BD ULTRA-FINE SANDRA PEN NEEDLE) 32 gauge x Use as directed four times daily insulin lispro (HUMALOG KWIKPEN INSULIN) 100 unit/mL INJECT 12 to 14 UNITS DIRECTED BREAKFAST, LUNCH, AND DINNER PLUS SLIDING SCALE (MAX 50 UNITS PER DAY) insulin glargine (LANTUS SOLOSTAR U-100 INSULIN) 100 unit/mL (3 mL) Inject 50 Units subcutaneously every morning. sulfamethoxazole-trimethoprim (BACTRIM) 400-80 mg per tablet Take 1 tablet by mouth once daily. gabapentin (NEURONTIN) 100 mg capsule Take 1 capsule by mouth daily at bedtime for [address] (PROTONIX) 20 mg tablet Take 1 tablet by mouth once daily. losartan (COZAAR) 25 mg tablet Take 1 tablet by mouth once daily. tacrolimus ER (ENVARSUS XR) 1 mg tablet Take 1 tablet by mouth once daily. carvedilol (COREG) 25 mg tablet Take 1 tablet by mouth twice daily. mycophenolate mofetil (CELLCEPT) 250 mg capsule Take 2 capsules by mouth twice daily. buPROPion XL (WELLBUTRIN XL) 300 mg 24 hr tablet Take 1 tablet by mouth once daily. MEDICAL SUPPLY D/C oxygen predniSONE (DELTASONE) 5 mg tablet Take 1 tablet by mouth once daily. Lancets lancets Test Blood Sugar 3 x/day. 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 DX: 250.E11.9. INSULIN DEP: yes glucagon 3 mg/actuation nasal spray (BAQSIMI) Use 1 [place] in the nose as needed for low blood sugar. May repeat after 15 minutes using a new device if there is no response. glucagon (GLUCAGON EMERGENCY KIT, HUMAN,) 1 mg injection Inject (1)one mg for insulin shock. sulfamethoxazole-trimethoprim (BACTRIM) 400-80 mg per tablet Take 1 tablet by mouth once daily. aspirin 81 mg chewable tablet chew and swallow 1 tablet by mouth once daily. fluticasone (FLONASE) 50 mcg/actuation nasal spray Use 2 Sprays in each nostril once daily. CPAP Initiate Auto PAP @ 5-20 cm of water with humidification. Mask (per patient preference) optional chin strap (if indicated) , filters, tubing, humidifier and lifetime supplies. >Compression Knee Highs 30-40 mm KNEE HIGH COMPRESSION STOCKINGS, 30-40 MM, I DX: EDEMA ACETAMINOPHEN ORAL Take by mouth. 1000 mg bid for pain / aches No current facility-administered medications for this visit. Medications updated and reviewed with patient ROS: No Fevers, Chills, No Nausea, vomiting, diarrhea No abdominal pain. Transplant incision healed No SOB, chest pain, pressure No edema, skin rash +foot wound No dysuria, or frequency No VELASCO, blurred vision or confusion Weight steady No change appetite All other system reviews negative. Hospitalized since last follow up: No Working for income: No Karnofsky Index Scale: 90 - Able to carry on normal activity: minor signs or symptoms of disease. Newly Diabetic: Yes. Last A1c 10.9 (that we have in [facility]) Rejection: No Malignancies: No Juvencio Haji RN SUSAN: Meli Bolaños CNP August 03, 2022 12:16 PM I have seen the patient and confirmed the historical findings as outlined above. Labs and imaging reviewed Physical Exam: Last 3 Encounter BP Readings: Date: BP: 08/03/2022 117/64 07/13/2022 152/80 07/05/2022 114/65 BP 117/64 (BP Site: Left Arm, BP Position: Sitting, BP Cuff Size: Regular Adult) Pulse 82 Temp 37.2 C (98.9 F) (Temporal) Ht 172.7 cm (5' 8) Wt 101.3 kg (223 lb 6.4 oz) SpO2 94% BMI 33.97 kg/m Body mass index is 33.97 kg/m . BP w/Orthostatic Vitals Date and Time Orthostatic BP Orthostatic Pulse BP Pulse BP Position BP Site BP Cuff Size 08/03/22 1124 -- -- 117/64 82 Sitting Left Arm Regular Adult GENERAL: well-nourished, alert, no acute distress HEENT: sclera anicteric, NC/AT NECK: trachea midline, No elevated JVP CV: RRR, normal S1 and S2; no rubs, murmurs, or tachycardia LUNGS: normal respiratory rate, clear to auscultation bilaterally ABD: soft, non-tender, positive bowel sounds all 4 quadrants Allograft: non-tender, wound well healed EXT: 2+ LLE edema, surgical shoe in place, trace edema to RLE NEURO: non focal SKIN: turgor normal, no rashes or lesions Labs: Invalid input(s): SPRG, NITRATES Protein/Creat Ratio Date Value 07/05/2022 0.12 mg/mg 06/08/2022 0.07 mg/mg 03/08/2022 0.1 12/08/2021 0.1 10/30/2021 0.2 10/19/2021 0.1 09/04/2021 0.1 07/20/2021 0.1 06/19/2021 0.1 05/30/2021 0.1 Creatinine (mg/dL) Date Value 07/02/2022 1.52 06/08/2022 1.58 03/03/2022 1.80 02/13/2022 2.08 01/26/2022 1.63 11/02/2021 1.34 10/25/2021 1.32 10/17/2021 1.27 10/06/2021 1.07 08/30/2021 1.59 BUN (mg/dL) Date Value 07/02/2022 29 06/08/2022 31 03/03/2022 45 11/02/2021 38 10/25/2021 38 10/17/2021 36 Amylase (U/L) Date Value 07/16/2018 21 Lipase (U/L) Date Value 07/16/2018 23 Tacrolimus/FK506 (ng/mL) Date Value 07/02/2022 5.5 06/08/2022 9.9 03/03/2022 8.3 02/13/2022 14.2 11/02/2021 9.5 10/25/2021 9.2 10/17/2021 3.6 10/06/2021 5.2 No results found for: EVERO No results found for: RAPA No results found for: CSA WBC (k/uL) Date Value 07/02/2022 8.20 06/08/2022 11.25 03/03/2022 6.23 11/02/2021 6.06 10/25/2021 5.60 10/17/2021 4.75 Hemoglobin (g/dL) Date Value 07/02/2022 15.2 06/08/2022 15.8 03/03/2022 17.6 11/02/2021 14.8 10/25/2021 14.5 10/17/2021 14.3 Hematocrit (%) Date Value 07/02/2022 48.3 06/08/2022 49.2 03/03/2022 56.4 11/02/2021 48.7 10/25/2021 47.4 10/17/2021 47.1 Platelet Count (k/uL) Date Value 07/02/2022 235 06/08/2022 273 03/03/2022 211 11/02/2021 263 10/25/2021 337 10/17/2021 241 Calcium (mg/dL) Date Value 11/02/2021 9.3 10/25/2021 10.0 10/17/2021 9.4 Calcium, Total (mg/dL) Date Value 07/02/2022 10.0 06/08/2022 10.5 03/03/2022 10.0 Phosphorus (mg/dL) Date Value 07/02/2022 2.7 06/08/2022 2.0 03/03/2022 2.9 11/02/2021 3.5 10/25/2021 2.1 10/17/2021 2.1 PTH, Intact (pg/mL) Date Value 03/03/2022 66 02/13/2022 64 01/26/2022 64 07/28/2021 57 07/18/2021 90 01/06/2019 209 VITAMIN D (ng/mL) Date Value 02/21/2015 14.4 BK Virus DNA Quant (IU/mL) Date Value 08/30/2021 BKV DNA not detected by PCR. 08/24/2021 BKV DNA not detected by PCR. 08/08/2021 BKV DNA not detected by PCR. CMV DNA (IU/mL) (IU/mL) Date Value 11/02/2021 165 10/25/2021 426 10/17/2021 703 No results found for: EBVDNA Assessment & Plan: 51 year old s/p Kidney Transplant: 03/09/2021 (Kidney) 1. Allograft function: Scr 1.52, stable mildly impaired function 3-6 mos:07/13/21: Limited sample by light microscopy without diagnostic evidence of acute Rejection. Tubular atrophy and interstitial fibrosis, mild. Arteriolar hyalinosis, focal. 2. IS Regimen: Envarsus 1 mg daily (FK 5.5), off MMF due to infection , Pred 5 3. Hematology: Hgb 15.2 stable, No leukopenia 4. Blood pressure: Controlled on cozaar 25 mg daily, coreg 25 mg BID 5. Viral Screening: CMV -/+, last level negative, BK negative 6. Lipids/CV risk: Continue asa, lipitor stopped last visit due to transaminitis 7. Electrolytes: stable 8. Foot wound: responding to hyperbaric therapy, now off antibiotics, needs to see endo, A1c 10.6 RTC in 4-6 weeks, after follow up with ID, continue labs monthly. Z94.0 Kidney replaced by transplant (primary encounter diagnosis) Z48.22 Encounter for aftercare following kidney transplant Z79.899, Z94.0 Immunosuppressive management encounter following kidney transplant I10 Essential hypertension This patient's labs and imaging were reviewed for maintenance of allograft function, prevention of rejection, therapeutic drug management, and monitoring and treating associated comobidities. This requires medical decision making of high complexity. Meli Bolaños APRN.WORKFORCE DEVELOPMENT SPECIALIST documented in this encounterMary [facility]11-23-2022 Miscellaneous Notes* Telephone Encounter - Zaida Gaston MD - 08/01/2022 8:54 AM EST Staff Please fax the consult over documented in this encounterMary [facility] Hospital11-11-2022 Miscellaneous Notes* Telephone Encounter - Torrie Moore LPN - 07/20/2022 12:26 PM EST Patient phones requesting refills as follows: Requested Prescriptions Pending Prescriptions Disp Refills Insulin [place], Disposable, (BD ULTRA-FINE SANDRA PEN NEEDLE) 32 gauge x 5/32 200 Each 11 Sig: Use as directed four times daily Please review and advise. Torrie Moore LPN documented in this encounterMary Rutan Hospital11-04-2022 History of Present illness Narrative* Zaida Gaston MD - 07/13/2022 4:10 PM EDT Reason for Visit Patient presents with: F/U Diabetes 3 Month Italo Burgos is a 51 year old male who presents here today for Above Complaints.. Health Maintenance HEPATITIS A(1 of 2 - Risk 2-dose series) SHINGRIX VACCINE(1 of 2) COVID-19 VACCINE(4 - Booster) INFLUENZA(1) DIABETIC FOOT EXAM PNEUMOCOCCAL(3 - PPSV23 if available, else PCV20) URINE ALBUMIN:CREATININE RATIO HPI Diabetes Mellitus his hba1c is currently 10.6. he is not eating right, she is using 50 units of long acting and 10 units of log. He is doing this around 4 times a day, also checks sugars 4 times a day. Fasting sugars are in the range of 200 and for lunch he is better as it comes down to the 100 and then it goes up in the evening. Diet recall: bf is mostly eggs, bonds, glass of milk, lunch is hamburger and bun, and dinner is chicken He is snacking on pig rinds. He is only drinking water, No infections, no alcohol His bp is not controlled today, bp medication were no hold for some wound healing issues, and hoping to get back on them Patient notes his wound is healing well No problem-specific Assessment & Plan notes found for this encounter. PAST MEDICAL HISTORY Diagnosis Date Acute diastolic (congestive) heart failure (HCC) Bronchitis Chronic kidney failure, stage 4 (severe) (HCC) Depression Detached retina DM type 2, goal HbA1c < 7% (HCC) ESRD (end stage renal disease) (HCC) GERD (gastroesophageal reflux disease) Hyperlipidemia Kidney stones LUANNE (obstructive sleep apnea) PNA (pneumonia) Proliferative retinopathy 02/10/2019 Snoring Unspecified essential hypertension Vitamin D deficiency PAST SURGICAL HISTORY Procedure Laterality Date AMPUTATION TOE,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 08/08/2018 Done at [facility] by Satish Phan MD CHOLECYSTECTOMY 1998 Cholecystectomy COLONOSCOPY 12/04/2018 CYSTO W/COMPLEX REMOVAL STONE & STENT 1999 EGD 12/04/2018 PAST SURGICAL HISTORY OF Left 2012 & 2014 removal eye fluid with instillation oil FAMILY HISTORY Problem Relation Age of Onset Colon Cancer Father 53 Diabetes Brother 52 Diabetes Sister Diabetes Mother 78 Heart Attack Mother Cancer Brother 49 lung Diabetes Son Social History Tobacco Use Smoking status: Never Smokeless tobacco: Current Types: Snuff Tobacco comments: snuff x 33 years Vaping Use Vaping Use: Never used Substance Use Topics Alcohol use: Not Currently Drug use: No Past medical history, appointments, medications, allergies reviewed. Pertinent Lab/Diagnostic Studies are reviewed and discussed today Current Outpatient Medications: sulfamethoxazole-trimethoprim (BACTRIM) 400-80 mg per tablet gabapentin (NEURONTIN) 100 mg capsule LANTUS SOLOSTAR U-100 INSULIN 100 unit/mL (3 mL) insulin lispro (HUMALOG KWIKPEN INSULIN) 100 unit/mL pantoprazole DR (PROTONIX) 20 mg tablet losartan (COZAAR) 25 mg tablet tacrolimus ER (ENVARSUS XR) 1 mg tablet carvedilol (COREG) 25 mg tablet mycophenolate mofetil (CELLCEPT) 250 mg capsule buPROPion XL (WELLBUTRIN XL) 300 mg 24 hr tablet MEDICAL SUPPLY predniSONE (DELTASONE) 5 mg tablet Lancets lancets Blood-Glucose Meter monitoring kit blood sugar diagnostic (BLOOD GLUCOSE TEST) test strip blood sugar diagnostic (BLOOD GLUCOSE TEST) test strip Insulin [place], Disposable, (BD ULTRA-FINE SANDRA PEN NEEDLE) 32 gauge x 5/32 glucagon 3 mg/actuation nasal spray (BAQSIMI) glucagon (GLUCAGON EMERGENCY KIT, HUMAN,) 1 mg injection sulfamethoxazole-trimethoprim (BACTRIM) 400-80 mg per tablet aspirin 81 mg chewable tablet fluticasone (FLONASE) 50 mcg/actuation nasal spray CPAP >Compression Knee Highs 30-40 mm ACETAMINOPHEN ORAL Review of Systems CONSTITUTIONAL: No [...] or numbness of concern. Physical Exam BP 152/80 (BP Site: Left Arm, BP Position: Sitting, BP Cuff Size: Large Adult) Pulse 92 Temp 36.8 C (98.2 F) Resp 14 Ht 172.7 cm (5' 8) Wt 101.2 kg (223 lb) SpO2 96% BMI 33.91 kg/m General appearance: Well appearing, alert, in no acute distress, well nourished. Skin: Skin color, texture, turgor normal, no suspicious rashes or lesions Head: Normocephalic, no masses, lesions, tenderness or abnormalities Eyes: Anicteric sclera. Pupils are equally round and reactive to light. Extraocular movements are intact. Lungs: Lungs clear to auscultation. No wheezing, rhonchi, rales Heart: RRR without murmur, gallop, or rubs. ASSESSMENT/PLAN: 1. Controlled type 2 diabetes mellitus without complication, without long-term current use of insulin ([facility]) - ICD9: 250.00, ICD10: E11.9 (primary diagnosis) His sugar control is concerning He notes not eating carbs and being regular wit medication Denies any infection, notes his wound is healing well, so we are not sure how to help Pharmacy to take indepth history for patient - CONSULT TO PHARMACY 2. Uncontrolled hypertension - ICD9: 401.9, ICD10: I10 Some of his medication sare on hold and he notes they will be restarted - Recommended regular aerobic exercise. - Recommend home blood pressure monitoring, to bring results in on next visit - Goal of BP <130/80 Zaida Gaston MD documented in this encounterMary [facility]10-27-2022 History of Present illness Narrative* Meli Bolaños APRN.WORKFORCE DEVELOPMENT SPECIALIST - 07/05/2022 8:40 AM EDT [facility] [place] [facility] Follow up Portions of this note were copied from the last encounter. Changes were made to appropriately reflect updated history and interval events, physical exam, data review, and medical decision making. This is a 51 year old male who presents for follow up of an at risk DD kidney transplant. KDPI 57%.PRA 0%. History of HTN, retinopathy, blind left eye, RLE weakness, CHF, bronchitis, PNA, depression, GERD, HPL, renal calculi, LUANNE and cholecystectomy. HPI: Transplant date: 03/09/21 Original Disease: DM/HTN CMV status: -/+ EBV status: +/+ Induction therapy: Thymo Ureteral Stent: Yes; Removal Date: 03/30/21 CfDNA: [place] Major events since transplantation: Having slow graft function 03/25/22: Admitted to [facility] 2/2 osteomyelitis s/p amputation of fifth toe. Wound culture +necrotizing fascitis. Discharged with COPAT vanc and ampicillin until end of April. Follow up scheduled with wound clinic, ID and Endocrinology Protocol Bx results: 3-6 mos:07/13/21: Limited sample by light microscopy without diagnostic evidence of acute Rejection. Tubular atrophy and interstitial fibrosis, mild. Arteriolar hyalinosis, focal. 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 Patient has not followed up with endo, discussed making apt Discussed following up with ID, also Holding MMF for healing at this time Current Outpatient Medications Medication Sig gabapentin (NEURONTIN) 100 mg capsule Take 1 capsule by mouth daily at bedtime for 180 days. LANTUS SOLOSTAR U-100 INSULIN 100 unit/mL (3 mL) Inject 40 Units subcutaneously every morning. insulin lispro (HUMALOG KWIKPEN INSULIN) 100 unit/mL INJECT 10 UNITS DIRECTED BREAKFAST, LUNCH, AND DINNER PLUS SLIDING SCALE (MAX 50 UNITS PER DAY) pantoprazole DR (PROTONIX) 20 mg tablet Take 1 tablet by mouth once daily. losartan (COZAAR) 25 mg tablet Take 1 tablet by mouth once daily. tacrolimus ER (ENVARSUS XR) 1 mg tablet Take 1 tablet by mouth once daily. carvedilol (COREG) 25 mg tablet Take 1 tablet by mouth twice daily. buPROPion XL (WELLBUTRIN XL) 300 mg 24 hr tablet Take 1 tablet by mouth once daily. predniSONE (DELTASONE) 5 mg tablet Take 1 tablet by mouth once daily. aspirin 81 mg chewable tablet chew and swallow 1 tablet by mouth once daily. fluticasone (FLONASE) 50 mcg/actuation nasal spray Use 2 Sprays in each nostril once daily. sulfamethoxazole-trimethoprim (BACTRIM) 400-80 mg per tablet Take 1 tablet by mouth once daily. mycophenolate mofetil (CELLCEPT) 250 mg capsule Take 2 capsules by mouth twice daily. MEDICAL SUPPLY D/C oxygen Lancets lancets Test Blood Sugar 3 x/day. 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 DX: 250.E11.9. INSULIN DEP: yes Insulin [place], Disposable, (BD ULTRA-FINE SANDRA PEN NEEDLE) 32 gauge x 5/32 Use as directed four times daily glucagon 3 mg/actuation nasal spray (BAQSIMI) Use 1 [place] in the nose as needed for low blood sugar. May repeat after 15 minutes using a new device if there is no response. glucagon (GLUCAGON EMERGENCY KIT, HUMAN,) 1 mg injection Inject (1)one mg for insulin shock. sulfamethoxazole-trimethoprim (BACTRIM) 400-80 mg per tablet Take 1 tablet by mouth once daily. CPAP Initiate Auto PAP @ 5-20 cm of water with humidification. Mask (per patient preference) optional chin strap (if indicated) , filters, tubing, humidifier and lifetime supplies. >Compression Knee Highs 30-40 mm KNEE HIGH COMPRESSION STOCKINGS, 30-40 MM, I DX: EDEMA ACETAMINOPHEN ORAL Take by mouth. 1000 mg bid for pain / aches No current facility-administered medications for this visit. Medications updated and reviewed with patient ROS: No Fevers, Chills, No Nausea, vomiting, diarrhea No abdominal pain. No SOB, chest pain, pressure + left leg, foot edema, no skin rash No dysuria, or frequency No VELASCO, blurred vision or confusion Weight steady No change appetite All other system reviews negative. Hospitalized since last follow up: No Working for income: No Karnofsky Index Scale: 90 - Able to carry on normal activity: minor signs or symptoms of disease. Newly Diabetic: Yes. Last A1c 10.9 (that we have in Epic) Rejection: No Malignancies: No Lashae Perry RN SUSAN: Meli Bolaños CNP July 05, 2022 1:03 PM I have seen the patient and confirmed the historical findings as outlined above. Labs and imaging reviewed Physical Exam: Last 3 Encounter BP Readings: Date: BP: 07/05/2022 114/65 06/08/2022 133/72 04/10/2022 122/60 BP 114/65 (BP Site: Left Arm, BP Position: Sitting, BP Cuff Size: Large Adult) Pulse 83 Temp 36.8 C (98.2 F) (Temporal) Ht 172.7 cm (5' 8) Wt 99.8 kg (220 lb) SpO2 96% BMI 33.45 kg/m Body mass index is 33.45 kg/m . BP w/Orthostatic Vitals Date and Time Orthostatic BP Orthostatic Pulse BP Pulse BP Position BP Site BP Cuff Size 07/05/22 1155 -- -- 114/65 83 Sitting Left Arm Large Adult GENERAL: well-nourished, alert, no acute distress HEENT: sclera anicteric, NC/AT NECK: trachea midline, No elevated JVP CV: RRR, normal S1 and S2; no rubs, murmurs, or tachycardia LUNGS: normal respiratory rate, clear to auscultation bilaterally ABD: soft, non-tender, positive bowel sounds all 4 quadrants Allograft: non-tender, wound well healed EXT: 2+ tight edema to LLE, tom wrap in place and has surgical shoe on NEURO: non focal SKIN: turgor normal, no rashes or lesions Labs: Recent Labs 07/05/22 1044 UGLUC 4+* UBILI Negative UKET Negative UHB Negative UPH 6.0 UPROT Negative Protein/Creat Ratio Date Value 06/08/2022 0.07 mg/mg 03/08/2022 0.1 12/08/2021 0.1 10/30/2021 0.2 10/19/2021 0.1 09/04/2021 0.1 07/20/2021 0.1 06/19/2021 0.1 05/30/2021 0.1 Creatinine (mg/dL) Date Value 07/02/2022 1.52 06/08/2022 1.58 03/03/2022 1.80 02/13/2022 2.08 01/26/2022 1.63 11/02/2021 1.34 10/25/2021 1.32 10/17/2021 1.27 10/06/2021 1.07 08/30/2021 1.59 BUN (mg/dL) Date Value 07/02/2022 29 06/08/2022 31 03/03/2022 45 11/02/2021 38 10/25/2021 38 10/17/2021 36 Amylase (U/L) Date Value 07/16/2018 21 Lipase (U/L) Date Value 07/16/2018 23 Tacrolimus/FK506 (ng/mL) Date Value 07/02/2022 5.5 06/08/2022 9.9 03/03/2022 8.3 02/13/2022 14.2 11/02/2021 9.5 10/25/2021 9.2 10/17/2021 3.6 10/06/2021 5.2 No results found for: EVERO No results found for: RAPA No results found for: CSA WBC (k/uL) Date Value 07/02/2022 8.20 06/08/2022 11.25 03/03/2022 6.23 11/02/2021 6.06 10/25/2021 5.60 10/17/2021 4.75 Hemoglobin (g/dL) Date Value 07/02/2022 15.2 06/08/2022 15.8 03/03/2022 17.6 11/02/2021 14.8 10/25/2021 14.5 10/17/2021 14.3 Hematocrit (%) Date Value 07/02/2022 48.3 06/08/2022 49.2 03/03/2022 56.4 11/02/2021 48.7 10/25/2021 47.4 10/17/2021 47.1 Platelet Count (k/uL) Date Value 07/02/2022 235 06/08/2022 273 03/03/2022 211 11/02/2021 263 10/25/2021 337 10/17/2021 241 Calcium (mg/dL) Date Value 11/02/2021 9.3 10/25/2021 10.0 10/17/2021 9.4 Calcium, Total (mg/dL) Date Value 07/02/2022 10.0 06/08/2022 10.5 03/03/2022 10.0 Phosphorus (mg/dL) Date Value 07/02/2022 2.7 06/08/2022 2.0 03/03/2022 2.9 11/02/2021 3.5 10/25/2021 2.1 10/17/2021 2.1 PTH, Intact (pg/mL) Date Value 03/03/2022 66 02/13/2022 64 01/26/2022 64 07/28/2021 57 07/18/2021 90 01/06/2019 209 VITAMIN D (ng/mL) Date Value 02/21/2015 14.4 BK Virus DNA Quant (IU/mL) Date Value 08/30/2021 BKV DNA not detected by PCR. 08/24/2021 BKV DNA not detected by PCR. 08/08/2021 BKV DNA not detected by PCR. CMV DNA (IU/mL) (IU/mL) Date Value 11/02/2021 165 10/25/2021 426 10/17/2021 703 No results found for: EBVDNA Assessment & Plan: 51 year old s/p Kidney Transplant: 03/09/2021 (Kidney) 1. Allograft function: Scr 1.52, stable impaired graft function S/p IV antibiotics, treated for osteo, necrotizing fascitis, s/p toe amputation. Off antibiotics now UA with 4+ glucose, UPC pending 2. IS Regimen: Envarsus 1 mg daily (FK 5.5),off MMF due to infection, Pred 5 mg 3. Prophylaxis: was off bactrim, will resume today 4. Hematology: Hgb 15.2, remains on arb, stable, No leukopenia 5. Blood pressure: Controlled on cozaar 25 mg daily, coreg 25 mg BID 6. Viral Screening: CMV -/+, last level negative BK negative 7. Lipids/CV risk: Continue asa, will stop lipitor for now in setting of transaminitis 8. Electrolytes: stable RTC in in 4 weeks, continue labs monthly. Z48.22 Encounter for aftercare following kidney transplant (primary encounter diagnosis) Z94.0 Kidney replaced by transplant Z79.899, Z94.0 Immunosuppressive management encounter following kidney transplant I10 Essential hypertension R74.01 Transaminitis This patient's labs and imaging were reviewed for maintenance of allograft function, prevention of rejection, therapeutic drug management, and monitoring and treating associated comobidities. This requires medical decision making of high complexity. Meli Bolaños APRN.ANDRE documented in this encounterMary [facility]09-30-[facility]22 History of Present illness Narrative* Juvencio Haji RN - 06/08/2022 12:00 PM EDT [facility] [place] [facility] Follow up Portions of this note were copied from the last encounter. Changes were made to appropriately reflect updated history and interval events, physical exam, data review, and medical decision making. This is a 51 year old male who presents for follow up of an at risk DD kidney transplant. KDPI 57%.PRA 0%. History of HTN, retinopathy, blind left eye, RLE weakness, CHF, bronchitis, PNA, depression, GERD, HPL, renal calculi, LUANNE and cholecystectomy. HPI: Transplant date: 03/09/21 Original Disease: DM/HTN CMV status: -/+ EBV status: +/+ Induction therapy: Thymo Ureteral Stent: Yes; Removal Date: 03/30/21 CfDNA: Prospera Major events since transplantation: Having slow graft function 03/25/22: Admitted to [facility] 2/2 osteomyelitis s/p amputation of fifth toe. Wound culture +necrotizing fascitis. Discharged with COPAT vanc and ampicillin until end of April. Follow up scheduled with wound clinic, ID and Endocrinology Protocol Bx results: 3-6 mos:07/13/21: Limited sample by light microscopy without diagnostic evidence of acute Rejection. Tubular atrophy and interstitial fibrosis, mild. Arteriolar hyalinosis, focal. 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 Not in PT. Follows with wound center and states not healing appropriately. Was wearing wound vac from OR until 05/31. Now WTD BID with Dakins and kerlix. Following Dr. Nava in ID and Dr. Levy in wound Has not had labwork drawn since 03/03. Orders updated in Epic and new standing lab form given to patient. Patient without reason. Instructed to go to lab today before leaving hospital and have labworkdrawn. Patient did take medications, so tacrolimus trough will NOT be accurate Has not been monitoring blood pressures. Stating machine broke. Encouraged purchasing new machine. Patient stated understanding UA from today with 4+ glucose. Patient stating blood glucose not controlled. BG this AM by fingerstick at [phone]. Had appointment with local Endocrinology, but due to above admission, was not able to keep appointment. States Endocrinology reached out to reschedule, just needs to return call. Finger stick in office at [phone] Lengthy discussion RE getting back on track with labwork and follow up appointments. Current Outpatient Medications Medication Sig gabapentin (NEURONTIN) 100 mg capsule Take 1 capsule by mouth daily at bedtime for 180 days. LANTUS SOLOSTAR U-100 INSULIN 100 unit/mL (3 mL) Inject 40 Units subcutaneously every morning. insulin lispro (HUMALOG KWIKPEN INSULIN) 100 unit/mL INJECT 10 UNITS DIRECTED BREAKFAST, LUNCH, AND DINNER PLUS SLIDING SCALE (MAX 50 UNITS PER DAY) pantoprazole DR (PROTONIX) 20 mg tablet Take 1 tablet by mouth once daily. losartan (COZAAR) 25 mg tablet Take 1 tablet by mouth once daily. tacrolimus ER (ENVARSUS XR) 1 mg tablet Take 1 tablet by mouth once daily. atorvastatin (LIPITOR) 20 mg tablet Take 1 tablet by mouth at bedtime as needed. carvedilol (COREG) 25 mg tablet Take 1 tablet by mouth twice daily. mycophenolate mofetil (CELLCEPT) 250 mg capsule Take 2 capsules by mouth twice daily. buPROPion XL (WELLBUTRIN XL) 300 mg 24 hr tablet Take 1 tablet by mouth once daily. MEDICAL SUPPLY D/C oxygen predniSONE (DELTASONE) 5 mg tablet Take 1 tablet by mouth once daily. Lancets lancets Test Blood Sugar 3 x/day. 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 DX: 250.E11.9. INSULIN DEP: yes Insulin [place], Disposable, (BD ULTRA-FINE SANDRA PEN NEEDLE) 32 gauge x 5/32 Use as directed four times daily glucagon 3 mg/actuation nasal spray (BAQSIMI) Use 1 [place] in the nose as needed for low blood sugar. May repeat after 15 minutes using a new device if there is no response. glucagon (GLUCAGON EMERGENCY KIT, HUMAN,) 1 mg injection Inject (1)one mg for insulin shock. amLODIPine (NORVASC) 10 mg tablet Take 1 tablet by mouth once daily. sulfamethoxazole-trimethoprim (BACTRIM) 400-80 mg per tablet Take 1 tablet by mouth once daily. aspirin 81 mg chewable tablet chew and swallow 1 tablet by mouth once daily. fluticasone (FLONASE) 50 mcg/actuation nasal spray Use 2 Sprays in each nostril once daily. ondansetron orally disintegrating (ZOFRAN ODT) 4 mg disintegrating tablet Take 1 tablet by mouth every 8 hours as needed for Nausea/Vomiting. CPAP Initiate Auto PAP @ 5-20 cm of water with humidification. Mask (per patient preference) optional chin strap (if indicated) , filters, tubing, humidifier and lifetime supplies. >Compression Knee Highs 30-40 mm KNEE HIGH COMPRESSION STOCKINGS, 30-40 MM, I DX: EDEMA ACETAMINOPHEN ORAL Take by mouth. 1000 mg bid for pain / aches No current facility-administered medications for this visit. Medications updated and reviewed with patient ROS: No Fevers, Chills, No Nausea, vomiting, diarrhea No abdominal pain. Transplant incision healed No SOB, chest pain, pressure No edema, skin rash No dysuria, or frequency No VELASCO, blurred vision or confusion Weight steady No change appetite All other system reviews negative. Juvencio Haji RN documented in this encounterMary [facility] Hospital08-17-2022 Miscellaneous Notes* Telephone Encounter - Kathrine Logan LPN - 04/25/2022 1:48 PM EDT Last seen pcp 04/10/22. Next appt is with pcp 07/11/22. * Telephone Encounter - Melissa Valles - 04/25/2022 8:44 AM EDT Patient has been identified by name and date of : Yes Requested Prescriptions Pending Prescriptions Disp Refills insulin lispro (HUMALOG KWIKPEN INSULIN) 100 unit/mL 15 mL 3 Sig: INJECT 10 UNITS DIRECTED BREAKFAST, LUNCH, AND DINNER PLUS SLIDING SCALE (MAX 50 UNITS PER DAY) RX INSTRUCTIONS: Pharmacy initiated this request. No need to notify patient. Melissa Batres Pss documented in this encounterMary Rutan Hospital08-02-2022 History of Present illness Narrative* Zaida Gaston MD - 04/10/2022 4:40 PM EDT Reason for Visit Patient presents with: Established Patient: [facility] left foot 5 th digit removed Italo Burgos is a 51 year old male who presents here today for Above Complaints.. Health Maintenance HEPATITIS A(1 of 2 - Risk 2-dose series) SHINGRIX VACCINE(1 of 2) COVID-19 VACCINE(4 - Booster) HBA1C HPI Italo is a very pleasant 50-year-old gentleman kidney transplant on March 09, 2021 end-stage kidney disease from poor diabetic control. He has a history of HTN, Diabetes Mellitus with retinopathy, blind left eye, RLE weakness, CHF, bronchitis, PNA, depression, ED, GERD, HPL, renal calculi, LUANNE and cho lecystectomy. The patient has diabetic neuropathy following at the [place] wound center with Dr. Levy for leftfoot ulcer with new wound region plantar region and cellulitis prompting debridement culture and initiation of doxycycline, Cipro regimen with daily dressings of silver alginate. He was recommended offloading and surgical shoe. He had been to vacation at [place] between March 13 and March 24. He reports that he did wear the shoes and did not go into the water but he did walk along the beach with some water contact and went did not put shoes about sandals to walk on the beach and he suddenly developed increased pain redness and edema of the foot with kaelyn cellulitis and drainage along with foul order he had a very bad nausea and emesis on the day before his wound suddenly worsened. [facility] he was noted to have pain throbbing, aching, worsening with certain activity, 7 on 10 pain and his CBC was showing elevated white count of 16.1. His hemoglobin was normal and his platelets were normal. His blood pressure was mildly elevated and lactic acid was minimally elevated at 1.9. Plain film of the left foot showed an air bubble in the soft tissue of the fifth foot dorsal aspect and ankle consistent with necrotizing fasciitis and he was taken to the OR and had amputation of the fifth digit. He was placed in ICU and was given Zosyn and vancomycin. He has a wound VAC. He not just had the necrotizing fasciitis but he also had osteomyelitis of the fifth digit and in the surgery they also took away the chronic ulcer that he had on the left foot. Today in the clinic he notes that he is only 1 to blame for what happened and feels sad about losing his toe, he is on the scooter and has central lines and he is getting vancomycin and ampicillin every day. He looks a little tired but otherwise his vital signs were normal He has not been checking his sugars or keeping a log regularly but he does check his sugars once jeronimo while and notes that his sugars are elevated and he says that they are elevated because of all these infusions and infections and he hopes that they will come back to normal. He was doing very wellprior to this incident with his sugar control No problem-specific Assessment & Plan notes found for this encounter. PAST MEDICAL HISTORY Diagnosis Date Acute diastolic (congestive) heart failure (HCC) Bronchitis Chronic kidney failure, stage 4 (severe) (HCC) Depression Detached retina DM type 2, goal HbA1c < 7% (HCC) ESRD (end stage renal disease) (HCC) GERD (gastroesophageal reflux disease) Hyperlipidemia Kidney stones LUANNE (obstructive sleep apnea) PNA (pneumonia) Proliferative retinopathy 02/10/2019 Snoring Unspecified essential hypertension Vitamin D deficiency PAST SURGICAL HISTORY Procedure Laterality Date AMPUTATION TOE,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 08/08/2018 Done at [facility] by Satish Phan MD CHOLECYSTECTOMY 1998 Cholecystectomy COLONOSCOPY 12/04/2018 CYSTO W/COMPLEX REMOVAL STONE & STENT 1999 EGD 12/04/2018 PAST SURGICAL HISTORY OF Left 2012 & 2014 removal eye fluid with instillation oil FAMILY HISTORY Problem Relation Age of Onset Colon Cancer Father 53 Diabetes Brother 52 Diabetes Sister Diabetes Mother 78 Heart Attack Mother Cancer Brother 49 lung Diabetes Son Social History Tobacco Use Smoking status: Never Smoker Smokeless tobacco: Current User Types: Snuff Tobacco comment: snuff x 33 years Vaping Use Vaping Use: Never used Substance Use Topics Alcohol use: Not Currently Drug use: No Past medical history, appointments, medications, allergies reviewed. Pertinent Lab/Diagnostic Studies are reviewed and discussed today Current Outpatient Medications: pantoprazole DR (PROTONIX) 20 mg tablet losartan (COZAAR) 25 mg tablet tacrolimus ER (ENVARSUS XR) 1 mg tablet atorvastatin (LIPITOR) 20 mg tablet carvedilol (COREG) 25 mg tablet gabapentin (NEURONTIN) 100 mg capsule insulin lispro (HUMALOG KWIKPEN INSULIN) 100 unit/mL insulin glargine (LANTUS SOLOSTAR U-100 INSULIN) 100 unit/mL (3 mL) mycophenolate mofetil (CELLCEPT) 250 mg capsule buPROPion XL (WELLBUTRIN XL) 300 mg 24 hr tablet MEDICAL SUPPLY predniSONE (DELTASONE) 5 mg tablet Lancets lancets Blood-Glucose Meter monitoring kit blood sugar diagnostic (BLOOD GLUCOSE TEST) test strip blood sugar diagnostic (BLOOD GLUCOSE TEST) test strip Insulin [place], Disposable, (BD ULTRA-FINE SANDRA PEN NEEDLE) 32 gauge x 5/32 glucagon 3 mg/actuation nasal spray (BAQSIMI) glucagon (GLUCAGON EMERGENCY KIT, HUMAN,) 1 mg injection amLODIPine (NORVASC) 10 mg tablet sulfamethoxazole-trimethoprim (BACTRIM) 400-80 mg per tablet aspirin 81 mg chewable tablet fluticasone (FLONASE) 50 mcg/actuation nasal spray ondansetron orally disintegrating (ZOFRAN ODT) 4 mg disintegrating tablet CPAP >Compression Knee Highs 30-40 mm ACETAMINOPHEN ORAL Review of Systems CONSTITUTIONAL: No [...] or numbness of concern. Physical Exam BP 122/60 (BP Site: Left Arm, BP Position: Sitting, BP Cuff Size: Large Adult) Pulse 97 Temp 37.4 C (99.3 F) Resp 12 Ht 172.7 cm (5' 8) Wt 94.8 kg (209 lb) SpO2 95% BMI 31.78 kg/m General appearance: Well appearing, alert, in no acute distress, well nourished. Skin: Skin color, texture, turgor normal, no suspicious rashes or lesions Head: Normocephalic, no masses, lesions, tenderness or abnormalities Eyes: Anicteric sclera. Pupils are equally round and reactive to light. Extraocular movements are intact. Lungs: Lungs clear to auscultation. No wheezing, rhonchi, rales Heart: RRR without murmur, gallop, or rubs. Extremities: Wound VAC present on the left toe with bandages and he is on a scooter. Central lines in the arm ASSESSMENT/PLAN: 1. Amputation of little toe, initial encounter (HCC) - ICD9: 895.0, ICD10: S98.139A (primary diagnosis) He will need physical therapy for gait balance once the wound VAC is removed 2. Necrotizing fasciitis (HCC) - ICD9: 728.86, ICD10: M72.6 On appropriate antibiotics of ampicillin and Vanco. His pulse is little elevated but his blood pressure is normal. He denies fever or chills or other signs of infection. 3. Diabetic ulcer of left foot associated with type 2 diabetes mellitus, with muscle involvement without evidence of necrosis, unspecified part of foot (HCC) - ICD9: 250.80, 707.15, ICD10: E11.621, L97.525 Controlled. - Continue current medications 4. Osteomyelitis of toe (HCC) - ICD9: 730.27, ICD10: M86.9 He will need long-term antibiotic He has an ID that following up with him and podiatry and wound center Zaida Gaston MD documented in this encounterMary [facility]08-01-2022 Miscellaneous Notes* Telephone Encounter - Zaida Gaston MD - 04/09/2022 6:57 PM EDT Noted * Telephone Encounter - Kirti Rehman RN - 04/09/2022 3:41 PM EDT Felicita with [facility] calling to update PCP that patient fell off his [place] the [place] after hitting a bump. He has a superficial abrasion to his right knee. Patient denies hitting hishead or other injuries. Thank you. Kirti Rehman RN documented in this encounterMary Rutan Hospital07-28-2022 Miscellaneous Notes* Telephone Encounter - DELROY Subramanian - 04/05/2022 10:29 PM EDT Patient phones requesting refills as follows: Pending Prescriptions Disp Refills PANTOPRAZOLE 20 MG TABLET,DELAYED RELEASE 90 tablet 1 Sig: Take 1 tablet by mouth once daily. RHETT: No Please review and advise. DELROY Subramanian documented in this encounterMary Rutan Hospital07-20-2022 Miscellaneous Notes* Telephone Encounter - Monik Chinchilla Ma - 03/28/2022 8:47 AM EDT Maranda notified. * Telephone Encounter - Zaida Gaston MD - 03/27/2022 5:27 PM EDT Yes He needs follow up with us anisa * Telephone Encounter - Kirti Rehman RN - 03/27/2022 1:57 PM EDT Maranda from [facility] calling. She reports patient will be discharging from [facility] tomorrow with diagnosis of necrotizing fascitis and left foot diabetic wound. Patient will be going home with a wound vac and IV. She reports Dr. Gomez will be following patient for the wound vac and Dr Rush will be following for IV therapy. Maranda asking if Dr. Gaston will follow patient for PT and OT orders? Please call Maranda at [phone] Thank you documented in this encounterMary [facility]an Hospital06-30-2022 History of Present illness Narrative* Chelsea Ryan MD - 03/08/2022 2:44 PM EDT [facility] [place] [facility] Follow up Portions of this note were copied from the last encounter. Changes were made to appropriately reflect updated history and interval events, physical exam, data review, and medical decision making. This is a 51 year old male who presents for follow up of an at risk DD kidney transplant. KDPI 57%.PRA 0%. History of HTN, retinopathy, blind left eye, RLE weakness, CHF, bronchitis, PNA, depression, GERD, HPL, renal calculi, LUANNE and cholecystectomy. HPI: Transplant date: 03/09/21 Original Disease: DM/HTN CMV status: -/+ EBV status: +/+ Induction therapy: Thymo Ureteral Stent: Yes; Removal Date: 03/30/21 CfDNA: [place] Major events since transplantation: Having slow graft function Protocol Bx results: 3-6 mos:07/13/21: Limited sample by light microscopy without diagnostic evidence of acute Rejection. Tubular atrophy and interstitial fibrosis, mild. Arteriolar hyalinosis, focal. 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 Montiel Lab Frequency: Monthly Home BP: 170's-180's/70's New Complaints: Feeling well overall In office BP 145/72 Finger sticks averaging 200-400. Encouraged to follow up with local Endocrinology for management. Patient stated understanding H/H from 03/03 at 17.6/56.4 Current Outpatient Medications Medication Sig tacrolimus ER (ENVARSUS XR) 1 mg tablet Take 1 tablet by mouth once daily. atorvastatin (LIPITOR) 20 mg tablet Take 1 tablet by mouth at bedtime as needed. pantoprazole DR (PROTONIX) 20 mg tablet Take 1 tablet by mouth once daily. carvedilol (COREG) 25 mg tablet Take 1 tablet by mouth twice daily. gabapentin (NEURONTIN) 100 mg capsule Take 1 capsule by mouth daily at bedtime for 180 days. insulin lispro (HUMALOG KWIKPEN INSULIN) 100 unit/mL INJECT 10 UNITS DIRECTED BREAKFAST, LUNCH, AND DINNER PLUS SLIDING SCALE (MAX 50 UNITS PER DAY) insulin glargine (LANTUS SOLOSTAR U-100 INSULIN) 100 unit/mL (3 mL) Inject 40 Units subcutaneously every morning. mycophenolate mofetil (CELLCEPT) 250 mg capsule Take 2 capsules by mouth twice daily. buPROPion XL (WELLBUTRIN XL) 300 mg 24 hr tablet Take 1 tablet by mouth once daily. MEDICAL SUPPLY D/C oxygen predniSONE (DELTASONE) 5 mg tablet Take 1 tablet by mouth once daily. Lancets lancets Test Blood Sugar 3 x/day. 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 DX: 250.E11.9. INSULIN DEP: yes Insulin [place], Disposable, (BD ULTRA-FINE SANDRA PEN NEEDLE) 32 gauge x /32 Use as directed four times daily glucagon 3 mg/actuation nasal spray (BAQSIMI) Use 1 [place] in the nose as needed for low blood sugar. May repeat after 15 minutes using a new device if there is no response. glucagon (GLUCAGON EMERGENCY KIT, HUMAN,) 1 mg injection Inject (1)one mg for insulin shock. amLODIPine (NORVASC) 10 mg tablet Take 1 tablet by mouth once daily. sulfamethoxazole-trimethoprim (BACTRIM) 400-80 mg per tablet Take 1 tablet by mouth once daily. aspirin 81 mg chewable tablet chew and swallow 1 tablet by mouth once daily. fluticasone (FLONASE) 50 mcg/actuation nasal spray Use 2 Sprays in each nostril once daily. ondansetron orally disintegrating (ZOFRAN ODT) 4 mg disintegrating tablet Take 1 tablet by mouth every 8 hours as needed for Nausea/Vomiting. CPAP Initiate Auto PAP @ 5-20 cm of water with humidification. Mask (per patient preference) optional chin strap (if indicated) , filters, tubing, humidifier and lifetime supplies. >Compression Knee Highs 30-40 mm KNEE HIGH COMPRESSION STOCKINGS, 30-40 MM, I DX: EDEMA ACETAMINOPHEN ORAL Take by mouth. 1000 mg bid for pain / aches No current facility-administered medications for this visit. Medications updated and reviewed with patient ROS: No Fevers, Chills, No Nausea, vomiting, diarrhea No abdominal pain. Transplant incision healed No SOB, chest pain, pressure No edema, skin rash No dysuria, or frequency No VELASCO, blurred vision or confusion Weight steady No change appetite All other system reviews negative. Juvencio Haji RN Transplant Staff Note: March 08, 2022 5:32 PM I have seen the patient and confirmed the historical findings as outlined above. Presented with for 1- yr kidney transplant follow up visit Overall, doing well- remaining active for weight control and glycemic control, but still notes sugars are high often In addition, RLE neuropathy No LUTS Some LLE edema >RLE edema Last 3 Encounter BP Readings: Date: BP: 03/08/2022 145/72 12/08/2021 150/81 10/30/2021 146/72 PE: BP 145/72 (BP Site: Left Arm, BP Position: Sitting, BP Cuff Size: Large Adult) Pulse 88 Temp 36.4 C (97.6 F) (Temporal) Ht 172.7 cm (5' 8) Wt 99.2 kg (218 lb 9.6 oz) SpO2 100% BMI 33.24 kg/m Body mass index is 33.24 kg/m . BP w/Orthostatic Vitals Date and Time Orthostatic BP Orthostatic Pulse BP Pulse BP Position BP Site BP Cuff Size 03/08/22 1411 -- -- 145/72 88 Sitting Left Arm Large Adult HEENT: Sclera anicteric, impaired vision Neck: no adenopathy. No elevated JVP CV: RRR no murmurs, rubs, gallops Lungs: Clear to auscultation and percussion ABD: soft, NT, ND, no masses Allograft: Nontender, wound well healed EXT: 2+ LLE edema, 1+ RLE edema; L forearm AVF + thrill/bruit NEURO: non focal SKIN: + scabbing lesions bilateral pretibial regions UA today: Urine dip shows: Recent Labs 03/08/22 1608 UGLUC 4+* UBILI Negative UKET Negative UHB 1+* UPH 5.5 UPROT Negative Protein/Creat Ratio (no units) Date Value 12/08/2021 0.1 10/30/2021 0.2 10/19/2021 0.1 09/04/2021 0.1 07/20/2021 0.1 06/19/2021 0.1 05/30/2021 0.1 Creatinine (mg/dL) Date Value 03/03/2022 1.80 02/13/2022 2.08 01/26/2022 1.63 01/12/2022 1.56 12/25/2021 1.77 11/02/2021 1.34 10/25/2021 1.32 10/17/2021 1.27 10/06/2021 1.07 08/30/2021 1.59 BUN (mg/dL) Date Value 03/03/2022 45 02/13/2022 49 01/26/2022 41 11/02/2021 38 10/25/2021 38 10/17/2021 36 Amylase (U/L) Date Value 07/16/2018 21 Lipase (U/L) Date Value 07/16/2018 23 Tacrolimus/FK506 (ng/mL) Date Value 03/03/2022 8.3 02/13/2022 14.2 01/26/2022 13.1 01/12/2022 10.0 11/02/2021 9.5 10/25/2021 9.2 10/17/2021 3.6 10/06/2021 5.2 WBC (k/uL) Date Value 03/03/2022 6.23 02/13/2022 9.03 01/26/2022 6.14 11/02/2021 6.06 10/25/2021 5.60 10/17/2021 4.75 Hemoglobin (g/dL) Date Value 03/03/2022 17.6 02/13/2022 17.6 01/26/2022 16.3 11/02/2021 14.8 10/25/2021 14.5 10/17/2021 14.3 Hematocrit (%) Date Value 03/03/2022 56.4 02/13/2022 56.1 01/26/2022 52.5 11/02/2021 48.7 10/25/2021 47.4 10/17/2021 47.1 Platelet Count (k/uL) Date Value 03/03/2022 211 02/13/2022 199 01/26/2022 214 11/02/2021 263 10/25/2021 337 10/17/2021 241 Calcium (mg/dL) Date Value 11/02/2021 9.3 10/25/2021 10.0 10/17/2021 9.4 Calcium, Total (mg/dL) Date Value 03/03/2022 10.0 02/13/2022 10.6 01/26/2022 9.8 Phosphorus (mg/dL) Date Value 03/03/2022 2.9 02/13/2022 3.9 01/26/2022 3.6 11/02/2021 3.5 10/25/2021 2.1 10/17/2021 2.1 PTH, Intact (pg/mL) Date Value 03/03/2022 66 02/13/2022 64 01/26/2022 64 07/28/2021 57 07/18/2021 90 01/06/2019 209 VITAMIN D (ng/mL) Date Value 02/21/2015 14.4 BK Virus DNA Quant (IU/mL) Date Value 08/30/2021 BKV DNA not detected by PCR. 08/24/2021 BKV DNA not detected by PCR. 08/08/2021 BKV DNA not detected by PCR. CMV DNA (IU/mL) (IU/mL) Date Value 11/02/2021 165 10/25/2021 426 10/17/2021 703 No results found for: EBVDNA Assessment: 51 year old with ESKD secondary to DM II s/p Kidney Transplant: 03/09/2021 (Kidney) Associated Findings: Post transplant erythrocytosis DM- variable control Plan: 1. Allograft Function: Stable with variable Cr in 1.5-2.0 range, 3/6 month biopsy (07/2021) okay. Prospera study. UPC 0.2, UA today with heme and glucose- updated UPC pending. Transplant ultrasound last in 05/2021 with non obstructing lower pole stone. 2. Immunosuppression: On tacro, mmf and pred 3. Blood Pressure: slightly above goal in clinic- adding on ARB for PTE as well as improved BP control. Pt will have repeat renal function labs 2- wk after starting med. 4. Electrolytes and Acid-Base Status: acceptable. 5. Hematology: Post transplant erythrocytosis- start Losartan today and monitor both electrolytes/renal function and hgb. 6. Lipids/CVD: Lipid panel this month-normal. 7. Bone-Mineral Disease: PTH 66, ca and phos are okay. 8. Viral Monitoring:BK neg, CMV neg. 9. Follow-up labs and appointment: labs 2 wk post ARB initiation, then monthly. Return in 2-3 months. 10. Pt's scheduled him to see endocrinology in [facility] for improved glycemic control. 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 This requires medical decision making of high complexity. Chelsea Ryan MD documented in this encounterMary [facility] Hospital06-24-2022 Miscellaneous Notes* Telephone Encounter - Conner LEZAMA - 03/02/2022 4:28 PM EDT Email Address: [email or web address] Patient Demographics: Eddie BURGOS [id number] Date Letter Sent: 03/02/2022 Information Sent: CUTEPDF documented in this encounterMary Rutan Hospital06-08-2022 Miscellaneous Notes* Telephone Encounter - Juvencio Haji RN - 02/14/2022 3:42 PM EDT Envarsus level resulted at 14.2. Italo Burgos notified of level. Confirmed true trough. Informedto decrease dose to 1mg per Dr. Pathak. New dose 1mg once daily. Patient verbalized back and statedunderstanding. Patient phones requesting refills as follows: Pending Prescriptions Disp Refills TACROLIMUS XR 1 MG TABLET,EXTENDED RELEASE 24 HR 30 tablet 11 Sig: Take 1 tablet by mouth once daily. RHETT: No Please review and advise. Juvencio Haji RN documented in this encounterMary Rutan Hospital05-02-2022 Miscellaneous Notes* Telephone Encounter - Megan Bermudez - 01/08/2022 2:04 PM EDT [facility]: 12/08/21 Patient's request for medication is as follows: Pending Prescriptions Disp Refills PANTOPRAZOLE 20 MG TABLET,DELAYED RELEASE 90 tablet 1 Sig: Take 1 tablet by mouth once daily. RHETT: Yes Please approve the above prescription(s) to electronically send to pharmacy. Megan Bermudez documented in this encounterMary Rutan Hospital04-19-2022 History of Present illness Narrative* Kathy Jurado, Research Coordinator - 12/26/2021 9:23 AM EDT Study Title: IRB# [id number] Validation of genomic immune-phenotyping profiles in peripheral blood genesignatures to predict risk of kidney transplant rejection Visit: Screening/Consent PI: Dr. Jose Link pharmacy operations coordinator: Kathy Jurado Study ID Number: [id number] Visit Timepoint: 6 months The patient verbally consents to continue in the research: Yes Labs Drawn: Patient taken to the clinical lab for blood draw. Labs collected at: 08:20 AM Collect Clean Catch Urine Sample: Sample colleted at: 08:20 AM Follow Up: Patient instructed that next study visit will be: 12 months Kathy Jurado [phone] Research Coordinator documented [facility] History of Present illness Narrative* Alana Kent APRN.WORKFORCE DEVELOPMENT SPECIALIST - 12/08/2021 8:47 AM EDT [facility] [place] [facility] Follow up Portions of this note were copied from the last encounter. Changes were made to appropriately reflect updated history and interval events, physical exam, data review, and medical decision making. This is a 51 year old male who presents for follow up of an at risk DD kidney transplant. KDPI 57%.PRA 0%. History of HTN, retinopathy, blind left eye, RLE weakness, CHF, bronchitis, PNA, depression, GERD, HPL, renal calculi, LUANNE and cholecystectomy. HPI: Transplant date: 03/09/21 Original Disease: DM/HTN CMV status: -/+ EBV status: +/+ Induction therapy: Thymo Ureteral Stent: Yes; Removal Date: 03/30/21 CfDNA: [place] Major events since transplantation: Having slow graft function Protocol Bx results: 3-6 mos:07/13/21: Limited sample by light microscopy without diagnostic evidence of acute Rejection. Tubular atrophy and interstitial fibrosis, mild. Arteriolar hyalinosis, focal. 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 Taking Amoxicillin, unsure of dose or duration. Being followed by local middleware consultant No complaints Current Outpatient Medications Medication Sig gabapentin (NEURONTIN) 100 mg capsule Take 1 capsule by mouth daily at bedtime for 180 days. tacrolimus ER (ENVARSUS XR) 1 mg tablet Take 2 tablets by mouth once daily. insulin lispro (HUMALOG KWIKPEN INSULIN) 100 unit/mL INJECT 10 UNITS DIRECTED BREAKFAST, LUNCH, AND DINNER PLUS SLIDING SCALE (MAX 50 UNITS PER DAY) insulin glargine (LANTUS SOLOSTAR U-100 INSULIN) 100 unit/mL (3 mL) Inject 40 Units subcutaneously every morning. mycophenolate mofetil (CELLCEPT) 250 mg capsule Take 2 capsules by mouth twice daily. pantoprazole DR (PROTONIX) 20 mg tablet Take 1 tablet by mouth once daily. buPROPion XL (WELLBUTRIN XL) 300 mg 24 hr tablet Take 1 tablet by mouth once daily. MEDICAL SUPPLY D/C oxygen predniSONE (DELTASONE) 5 mg tablet Take 1 tablet by mouth once daily. atorvastatin (LIPITOR) 20 mg tablet Take 1 tablet by mouth at bedtime as needed. Lancets lancets Test Blood Sugar 3 x/day. 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 DX: 250.E11.9. INSULIN DEP: yes Insulin [place], Disposable, (BD ULTRA-FINE SANDRA PEN NEEDLE) 32 gauge x 5/32 Use as directed four times daily glucagon 3 mg/actuation nasal spray (BAQSIMI) Use 1 [place] in the nose as needed for low blood sugar. May repeat after 15 minutes using a new device if there is no response. glucagon (GLUCAGON EMERGENCY KIT, HUMAN,) 1 mg injection Inject (1)one mg for insulin shock. amLODIPine (NORVASC) 10 mg tablet Take 1 tablet by mouth once daily. sulfamethoxazole-trimethoprim (BACTRIM) 400-80 mg per tablet Take 1 tablet by mouth once daily. aspirin 81 mg chewable tablet chew and swallow 1 tablet by mouth once daily. fluticasone (FLONASE) 50 mcg/actuation nasal spray Use 2 Sprays in each nostril once daily. ondansetron orally disintegrating (ZOFRAN ODT) 4 mg disintegrating tablet Take 1 tablet by mouth every 8 hours as needed for Nausea/Vomiting. CPAP Initiate Auto PAP @ 5-20 cm of water with humidification. Mask (per patient preference) optional chin strap (if indicated) , filters, tubing, humidifier and lifetime supplies. >Compression Knee Highs 30-40 mm KNEE HIGH COMPRESSION STOCKINGS, 30-40 MM, I DX: EDEMA ACETAMINOPHEN ORAL Take by mouth. 1000 mg bid for pain / aches carvedilol (COREG) 25 mg tablet Take 1 tablet by mouth twice daily. No current facility-administered medications for this visit. ROS: No Fevers, Chills, No Nausea, vomiting, diarrhea No SOB, chest pain, pressure No edema, skin rash No dysuria, or frequency Weight steady No change appetite All other system reviews negative Physical Exam: Vital signs: BP 150/81 (BP Site: Left Arm, BP Position: Sitting, BP Cuff Size: Large Adult) Pulse84 Temp 37.3 C (99.2 F) (Temporal) Ht 172.7 cm (5' 8) Wt 99.8 kg (220 lb) SpO2 97% BMI 33.45 kg/m GENERAL: No acute distress HEENT: No thrush or oral lesions NECK: No JVD LYMPH: No adenopathy LUNGS: CTAB CV: S1,S2 ABD: soft /ALLOGRAFT/WOUND: Nontender. healed EXT: No swelling SKIN: No rashes or lesions PSYCH: A+Ox3 NEURO: No deficits LABS: Creatinine (mg/dL) Date Value 11/24/2021 1.45 11/17/2021 1.68 11/10/2021 1.51 11/02/2021 1.34 10/25/2021 1.32 10/17/2021 1.27 BUN (mg/dL) Date Value 11/24/2021 36 11/17/2021 36 11/10/2021 43 11/02/2021 38 10/25/2021 38 10/17/2021 36 Potassium (mmol/L) Date Value 11/24/2021 4.7 11/17/2021 4.8 11/10/2021 5.1 11/02/2021 4.3 10/25/2021 4.4 10/17/2021 4.3 WBC (k/uL) Date Value 11/24/2021 6.88 11/17/2021 5.58 11/10/2021 6.54 11/02/2021 6.06 10/25/2021 5.60 10/17/2021 4.75 Hemoglobin (g/dL) Date Value 11/24/2021 16.0 11/17/2021 16.2 11/10/2021 15.3 11/02/2021 14.8 10/25/2021 14.5 10/17/2021 14.3 Hematocrit (%) Date Value 11/24/2021 51.8 11/17/2021 51.4 11/10/2021 50.3 11/02/2021 48.7 10/25/2021 47.4 10/17/2021 47.1 Platelet Count (k/uL) Date Value 11/24/2021 233 11/17/2021 205 11/10/2021 206 11/02/2021 263 10/25/2021 337 10/17/2021 241 Calcium (mg/dL) Date Value 11/02/2021 9.3 10/25/2021 10.0 10/17/2021 9.4 Calcium, Total (mg/dL) Date Value 11/24/2021 10.0 11/17/2021 10.3 11/10/2021 10.2 PTH, Intact (pg/mL) Date Value 11/17/2021 55 07/28/2021 57 07/18/2021 90 01/06/2019 209 Tacrolimus/FK506 (ng/mL) Date Value 11/24/2021 7.3 11/17/2021 13.8 11/10/2021 15.2 11/02/2021 9.5 10/25/2021 9.2 10/17/2021 3.6 Protein/Creat Ratio (no units) Date Value 10/30/2021 0.2 10/19/2021 0.1 09/04/2021 0.1 Cholesterol, Total (mg/dL) Date Value 11/17/2021 159 07/28/2021 141 07/18/2021 145 03/23/2021 139 HDL Cholesterol (mg/dL) Date Value 11/17/2021 50 07/28/2021 52 07/18/2021 53 03/23/2021 55 LDL Cholesterol (mg/dL) Date Value 11/17/2021 92 07/28/2021 70 07/18/2021 76 03/23/2021 67 Triglyceride (mg/dL) Date Value 11/17/2021 83 07/28/2021 94 07/18/2021 78 03/23/2021 83 Lipase (U/L) Date Value 07/16/2018 23 Hemoglobin A1C (%) Date Value 07/11/2021 8.2 eGFR-All Other Races (.) Date Value 11/02/2021 56 10/25/2021 57 10/17/2021 60 Estimated Glomerular Filtration Rate (mL/min/1.73m ) Date Value 11/24/2021 58 11/17/2021 49 11/10/2021 55 eGFR- (no units) Date Value 11/02/2021 >60 10/25/2021 >60 10/17/2021 >60 Impression and Plan: 1. Allograft function: SCr 1.5, stable. U/a without proteinuria. PCR pending 2. Immunosuppression and Therapeutic Drug Monitoring: Envarsus 2mg. Level 7.3 MMF 500/500 pred 5 3. Hematology: No anemia or leukopenia 4. Blood pressure: Above target, plan to stop atenolol and start carvedilol 25mg BID. Continue amlodipine 5. Lipids/CV risk: Continue atorvastastin 6. Bone health/jail corticosteroid use: Ca/phos stable 7. Health maintenance: Up to date 8. Viral screening: BK/CMV negative 9. other: RTC in 2 weeks Alana Kent APRN.ANDRE documented in this encounterMary [facility] History of Past illness Narrative* Problem Noted Date Resolved Date CKD (chronic kidney disease) requiring chronic d ialysis 12/16/2018 11/23/2022 Stage 3 chronic kidney disease 11/26/2017 0 04/02/2019 Acute pain of right shoulder 05/03/2017 Last Assessment & Plan: Shoulder pain for the past 4 weeks, woke up with it. No injury, pain is constant. He does not take any pain pills at day time. Not had Physical Therapy for it Depressive disorder, not elsewhere classified 04/02/2019 Last Assessment & Plan: Sad because his daughter does not let him see his son. 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 documented as of this encounter (statuses as of 11/23/2022) [facility] Narrative* Problem Noted Date Resolved Date CKD (chronic kidney disease) requiring chronic d ialysis 12/16/2018 11/23/2022 Stage 3 chronic kidney disease 11/26/2017 0 04/02/2019 Acute pain of right shoulder 05/03/2017 Last Assessment & Plan: Shoulder pain for the past 4 weeks, woke up with it. No injury, pain is constant. He does not take any pain pills at day time. Not had Physical Therapy for it Depressive disorder, not elsewhere classified 04/02/2019 Last Assessment & Plan: Sad because his daughter does not let him see his son. 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 documented as of this encounter (statuses as of 01/01/2023) [facility] Narrative* Problem Noted Date Resolved Date CKD (chronic kidney disease) requiring chronic d ialysis 12/16/2018 11/23/2022 Stage 3 chronic kidney disease 11/26/2017 0 04/02/2019 Acute pain of right shoulder 05/03/2017 Last Assessment & Plan: Shoulder pain for the past 4 weeks, woke up with it. No injury, pain is constant. He does not take any pain pills at day time. Not had Physical Therapy for it Depressive disorder, not elsewhere classified 04/02/2019 Last Assessment & Plan: Sad because his daughter does not let him see his son. 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 documented as of this encounter (statuses as of 01/02/2023) [facility] Narrative* Problem Noted Date Resolved Date CKD (chronic kidney disease) requiring chronic d ialysis 12/16/2018 11/23/2022 Stage 3 chronic kidney disease 11/26/2017 0 04/02/2019 Acute pain of right shoulder 05/03/2017 Last Assessment & Plan: Shoulder pain for the past 4 weeks, woke up with it. No injury, pain is constant. He does not take any pain pills at day time. Not had Physical Therapy for it Depressive disorder, not elsewhere classified 04/02/2019 Last Assessment & Plan: Sad because his daughter does not let him see his son. 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 documented as of this encounter (statuses as of 01/17/2023) [facility] Narrative* Problem Noted Date Resolved Date CKD (chronic kidney disease) requiring chronic d ialysis 12/16/2018 11/23/2022 Stage 3 chronic kidney disease 11/26/2017 0 04/02/2019 Acute pain of right shoulder 05/03/2017 Last Assessment & Plan: Shoulder pain for the past 4 weeks, woke up with it. No injury, pain is constant. He does not take any pain pills at day time. Not had Physical Therapy for it Depressive disorder, not elsewhere classified 04/02/2019 Last Assessment & Plan: Sad because his daughter does not let him see his son. 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 documented as of this encounter (statuses as of 01/17/2023) [facility] Narrative* Problem Noted Date Resolved Date CKD (chronic kidney disease) requiring chronic d ialysis 12/16/2018 11/23/2022 Stage 3 chronic kidney disease 11/26/2017 0 04/02/2019 Acute pain of right shoulder 05/03/2017 Last Assessment & Plan: Shoulder pain for the past 4 weeks, woke up with it. No injury, pain is constant. He does not take any pain pills at day time. Not had Physical Therapy for it Depressive disorder, not elsewhere classified 04/02/2019 Last Assessment & Plan: Sad because his daughter does not let him see his son. 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 documented as of this encounter (statuses as of 02/26/2023) [facility] Narrative* Problem Noted Date Resolved Date CKD (chronic kidney disease) requiring chronic d ialysis 12/16/2018 11/23/2022 Stage 3 chronic kidney disease 11/26/2017 0 04/02/2019 Acute pain of right shoulder 05/03/2017 Last Assessment & Plan: Shoulder pain for the past 4 weeks, woke up with it. No injury, pain is constant. He does not take any pain pills at day time. Not had Physical Therapy for it Depressive disorder, not elsewhere classified 04/02/2019 Last Assessment & Plan: Sad because his daughter does not let him see his son. 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 documented as of this encounter (statuses as of 03/14/2023) [facility] Narrative* Problem Noted Date Diagnosed Date Resolved Date 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 12/16/2018 11/23/2022 Stage 3 chronic kidney disease 11/26/2017 04/02/2019 Acute pain of right shoulder 05/03/2017 04/02/2019 Last Assessment & Plan: Shoulder pain for the past 4 weeks, woke up with it. No injury, pain is constant. He does not take any pain pills at day time. Not had Physical Therapy for it Depressive disorder, not elsewhere classified 04/17/2004/02/2019 Last Assessment & Plan: Sad because his daughter does not let him see his son. 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 documented as of this encounter (statuses as of 03/20/2023) [facility] Narrative* Problem Noted Date Diagnosed Date Resolved Date 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 12/16/2018 11/23/2022 Stage 3 chronic kidney disease 11/26/2017 04/02/2019 Acute pain of right shoulder 05/03/2017 04/02/2019 Last Assessment & Plan: Shoulder pain for the past 4 weeks, woke up with it. No injury, pain is constant. He does not take any pain pills at day time. Not had Physical Therapy for it Depressive disorder, not elsewhere classified 04/17/2004/02/2019 Last Assessment & Plan: Sad because his daughter does not let him see his son. 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 documented as of this encounter (statuses as of 04/03/2023) [facility] Narrative* Problem Noted Date Diagnosed Date Resolved Date 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 12/16/2018 11/23/2022 Stage 3 chronic kidney disease 11/26/2017 04/02/2019 Acute pain of right shoulder 05/03/2017 04/02/2019 Last Assessment & Plan: Shoulder pain for the past 4 weeks, woke up with it. No injury, pain is constant. He does not take any pain pills at day time. Not had Physical Therapy for it Depressive disorder, not elsewhere classified 04/17/2004/02/2019 Last Assessment & Plan: Sad because his daughter does not let him see his son. 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 documented as of this encounter (statuses as of 04/12/2023) [facility] Narrative* Problem Noted Date Diagnosed Date Resolved Date 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 12/16/2018 11/23/2022 Stage 3 chronic kidney disease 11/26/2017 04/02/2019 Acute pain of right shoulder 05/03/2017 04/02/2019 Last Assessment & Plan: Shoulder pain for the past 4 weeks, woke up with it. No injury, pain is constant. He does not take any pain pills at day time. Not had Physical Therapy for it Depressive disorder, not elsewhere classified 04/17/2004/02/2019 Last Assessment & Plan: Sad because his daughter does not let him see his son. 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 documented as of this encounter (statuses as of 05/22/2023) [facility] Narrative* Problem Noted Date Diagnosed Date Resolved Date 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 12/16/2018 11/23/2022 Stage 3 chronic kidney disease 11/26/2017 04/02/2019 Acute pain of right shoulder 05/03/2017 04/02/2019 Last Assessment & Plan: Shoulder pain for the past 4 weeks, woke up with it. No injury, pain is constant. He does not take any pain pills at day time. Not had Physical Therapy for it Depressive disorder, not elsewhere classified 04/17/2004/02/2019 Last Assessment & Plan: Sad because his daughter does not let him see his son. 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 documented as of this encounter (statuses as of 07/02/2023) [facility] Narrative* Problem Noted Date Diagnosed Date Resolved Date 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 12/16/2018 11/23/2022 Stage 3 chronic kidney disease 11/26/2017 04/02/2019 Acute pain of right shoulder 05/03/2017 04/02/2019 Last Assessment & Plan: Shoulder pain for the past 4 weeks, woke up with it. No injury, pain is constant. He does not take any pain pills at day time. Not had Physical Therapy for it Depressive disorder, not elsewhere classified 04/17/2004/02/2019 Last Assessment & Plan: Sad because his daughter does not let him see his son. 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 documented as of this encounter (statuses as of 07/14/2023) [facility]arrative* Problem Noted Date Diagnosed Date Resolved Date 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 12/16/2018 11/23/2022 Stage 3 chronic kidney disease 11/26/2017 04/02/2019 Acute pain of right shoulder 05/03/2017 04/02/2019 Last Assessment & Plan: Shoulder pain for the past 4 weeks, woke up with it. No injury, pain is constant. He does not take any pain pills at day time. Not had Physical Therapy for it Depressive disorder, not elsewhere classified 04/17/2004/02/2019 Last Assessment & Plan: Sad because his daughter does not let him see his son. 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 documented as of this encounter (statuses as of 07/16/2023) [facility] Narrative* Problem Noted Date Diagnosed Date Resolved Date 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 12/16/2018 11/23/2022 Stage 3 chronic kidney disease 11/26/2017 04/02/2019 Acute pain of right shoulder 05/03/2017 04/02/2019 Last Assessment & Plan: Shoulder pain for the past 4 weeks, woke up with it. No injury, pain is constant. He does not take any pain pills at day time. Not had Physical Therapy for it Depressive disorder, not elsewhere classified 04/17/2004/02/2019 Last Assessment & Plan: Sad because his daughter does not let him see his son. 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 documented as of this encounter (statuses as of 07/20/2023) [facility]arrative* Problem Noted Date Diagnosed Date Resolved Date 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 12/16/2018 11/23/2022 Stage 3 chronic kidney disease 11/26/2017 04/02/2019 Acute pain of right shoulder 05/03/2017 04/02/2019 Last Assessment & Plan: Shoulder pain for the past 4 weeks, woke up with it. No injury, pain is constant. He does not take any pain pills at day time. Not had Physical Therapy for it Depressive disorder, not elsewhere classified 04/17/2004/02/2019 Last Assessment & Plan: Sad because his daughter does not let him see his son. 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 documented as of this encounter (statuses as of 07/23/2023) [facility] Narrative* Problem Noted Date Diagnosed Date Resolved Date 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 12/16/2018 11/23/2022 Stage 3 chronic kidney disease 11/26/2017 04/02/2019 Acute pain of right shoulder 05/03/2017 04/02/2019 Last Assessment & Plan: Shoulder pain for the past 4 weeks, woke up with it. No injury, pain is constant. He does not take any pain pills at day time. Not had Physical Therapy for it Depressive disorder, not elsewhere classified 04/17/2004/02/2019 Last Assessment & Plan: Sad because his daughter does not let him see his son. 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 documented as of this encounter (statuses as of 07/25/2023) [facility]arrative* Problem Noted Date Diagnosed Date Resolved Date 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 12/16/2018 11/23/2022 Stage 3 chronic kidney disease 11/26/2017 04/02/2019 Acute pain of right shoulder 05/03/2017 04/02/2019 Last Assessment & Plan: Shoulder pain for the past 4 weeks, woke up with it. No injury, pain is constant. He does not take any pain pills at day time. Not had Physical Therapy for it Depressive disorder, not elsewhere classified 04/17/2004/02/2019 Last Assessment & Plan: Sad because his daughter does not let him see his son. 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 documented as of this encounter (statuses as of 07/31/2023) [facility]arrative* Problem Noted Date Diagnosed Date Resolved Date 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 12/16/2018 11/23/2022 Stage 3 chronic kidney disease 11/26/2017 04/02/2019 Acute pain of right shoulder 05/03/2017 04/02/2019 Last Assessment & Plan: Shoulder pain for the past 4 weeks, woke up with it. No injury, pain is constant. He does not take any pain pills at day time. Not had Physical Therapy for it Depressive disorder, not elsewhere classified 04/17/2004/02/2019 Last Assessment & Plan: Sad because his daughter does not let him see his son. 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 documented as of this encounter (statuses as of 08/14/2023) [facility]* Problem Noted Date Diagnosed Date Resolved Date 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 12/16/2018 11/23/2022 Stage 3 chronic kidney disease 11/26/2017 04/02/2019 Acute pain of right shoulder 05/03/2017 04/02/2019 Last Assessment & Plan: Shoulder pain for the past 4 weeks, woke up with it. No injury, pain is constant. He does not take any pain pills at day time. Not had Physical Therapy for it Depressive disorder, not elsewhere classified 04/17/2004/02/2019 Last Assessment & Plan: Sad because his daughter does not let him see his son. 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 documented as of this encounter (statuses as of 08/21/2023) [facility]ative* Problem Noted Date Diagnosed Date Resolved Date 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 12/16/2018 11/23/2022 Stage 3 chronic kidney disease 11/26/2017 04/02/2019 Acute pain of right shoulder 05/03/2017 04/02/2019 Last Assessment & Plan: Shoulder pain for the past 4 weeks, woke up with it. No injury, pain is constant. He does not take any pain pills at day time. Not had Physical Therapy for it Depressive disorder, not elsewhere classified 04/17/2004/02/2019 Last Assessment & Plan: Sad because his daughter does not let him see his son. 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 documented as of this encounter (statuses as of 08/24/2023) [facility]arr[facility]* Problem Noted Date Diagnosed Date Resolved Date 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 12/16/2018 11/23/2022 Stage 3 chronic kidney disease 11/26/2017 04/02/2019 Acute pain of right shoulder 05/03/2017 04/02/2019 Last Assessment & Plan: Shoulder pain for the past 4 weeks, woke up with it. No injury, pain is constant. He does not take any pain pills at day time. Not had Physical Therapy for it Depressive disorder, not elsewhere classified 04/17/2004/02/2019 Last Assessment & Plan: Sad because his daughter does not let him see his son. 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 documented as of this encounter (statuses as of 08/30/2023) [facility]* Problem Noted Date Diagnosed Date Resolved Date 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 12/16/2018 11/23/2022 Stage 3 chronic kidney disease 11/26/2017 04/02/2019 Acute pain of right shoulder 05/03/2017 04/02/2019 Last Assessment & Plan: Shoulder pain for the past 4 weeks, woke up with it. No injury, pain is constant. He does not take any pain pills at day time. Not had Physical Therapy for it Depressive disorder, not elsewhere classified 04/17/2004/02/2019 Last Assessment & Plan: Sad because his daughter does not let him see his son. 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 documented as of this encounter (statuses as of 09/22/2023) [facility]04-[facility] History of Past illness Narrative* Problem Noted Date Diagnosed Date Resolved Date 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 12/16/2018 11/23/2022 Stage 3 chronic kidney disease 11/26/2017 04/02/2019 Acute pain of right shoulder 05/03/2017 04/02/2019 Last Assessment & Plan: Shoulder pain for the past 4 weeks, woke up with it. No injury, pain is constant. He does not take any pain pills at day time. Not had Physical Therapy for it Depressive disorder, not elsewhere classified 04/17/2004/02/2019 Last Assessment & Plan: Sad because his daughter does not let him see his son. 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 documented as of this encounter (statuses as of 10/11/2023) [facility]04[facility]2019 History of Past illness Narrative* Problem Noted Date Diagnosed Date Resolved Date 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 12/16/2018 11/23/2022 Stage 3 chronic kidney disease 11/26/2017 04/02/2019 Acute pain of right shoulder 05/03/2017 04/02/2019 Last Assessment & Plan: Shoulder pain for the past 4 weeks, woke up with it. No injury, pain is constant. He does not take any pain pills at day time. Not had Physical Therapy for it Depressive disorder, not elsewhere classified 04/17/2004/02/2019 Last Assessment & Plan: Sad because his daughter does not let him see his son. 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 documented as of this encounter (statuses as of 10/11/2023) [facility]04[facility] History of Past illness Narrative* Problem Noted Date Diagnosed Date Resolved Date 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 12/16/2018 11/23/2022 Stage 3 chronic kidney disease 11/26/2017 04/02/2019 Acute pain of right shoulder 05/03/2017 04/02/2019 Last Assessment & Plan: Shoulder pain for the past 4 weeks, woke up with it. No injury, pain is constant. He does not take any pain pills at day time. Not had Physical Therapy for it Depressive disorder, not elsewhere classified 04/17/2004/02/2019 Last Assessment & Plan: Sad because his daughter does not let him see his son. 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 documented as of this encounter (statuses as of 10/14/2023) [facility] History of Past illness Narrative* Problem Noted Date Diagnosed Date Resolved Date 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 12/16/2018 11/23/2022 Stage 3 chronic kidney disease 11/26/2017 04/02/2019 Acute pain of right shoulder 05/03/2017 04/02/2019 Last Assessment & Plan: Shoulder pain for the past 4 weeks, woke up with it. No injury, pain is constant. He does not take any pain pills at day time. Not had Physical Therapy for it Depressive disorder, not elsewhere classified 04/17/2004/02/2019 Last Assessment & Plan: Sad because his daughter does not let him see his son. 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 documented as of this encounter (statuses as of 10/14/2023) [facility] History of Past illness Narrative* Problem Noted Date Diagnosed Date Resolved Date 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 12/16/2018 11/23/2022 Stage 3 chronic kidney disease 11/26/2017 04/02/2019 Acute pain of right shoulder 05/03/2017 04/02/2019 Last Assessment & Plan: Shoulder pain for the past 4 weeks, woke up with it. No injury, pain is constant. He does not take any pain pills at day time. Not had Physical Therapy for it Depressive disorder, not elsewhere classified 04/17/2004/02/2019 Last Assessment & Plan: Sad because his daughter does not let him see his son. 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 No injury, pain is constant. He does not take any pain pills at day time. Not had Physical Therapy for it Depressive disorder, not elsewhere classified 04/17/2004/02/2019 Last Assessment & Plan: Sad because his daughter does not let him see his son. 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 No injury, pain is constant. He does not take any pain pills at day time. Not had Physical Therapy for it Depressive disorder, not elsewhere classified 04/17/2004/02/2019 Last Assessment & Plan: Sad because his daughter does not let him see his son. 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 No injury, pain is constant. He does not take any pain pills at day time. Not had Physical Therapy for it Depressive disorder, not elsewhere classified 04/17/2004/02/2019 Last Assessment & Plan: Sad because his daughter does not let him see his son. 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 No injury, pain is constant. He does not take any pain pills at day time. Not had Physical Therapy for it Depressive disorder, not elsewhere classified 04/17/2004/02/2019 Last Assessment & Plan: Sad because his daughter does not let him see his son. 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 No injury, pain is constant. He does not take any pain pills at day time. Not had Physical Therapy for it Depressive disorder, not elsewhere classified 04/17/2004/02/2019 Last Assessment & Plan: Sad because his daughter does not let him see his son. 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 documented as of this encounter (statuses as of 12/13/2023) [facility] History of Past illness Narrative* Problem Noted Date Resolved Date Stage 3 chronic kidney disease 11/26/2017 0 04/02/2019 Acute pain of right shoulder 05/03/2017 Last Assessment & Plan: Shoulder pain for the past 4 weeks, woke up with it. No injury, pain is constant. He does not take any pain pills at day time. Not had Physical Therapy for it Depressive disorder, not elsewhere classified 04/02/2019 Last Assessment & Plan: Sad because his daughter does not let him see his son. 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 documented as of this encounter (statuses as of 12/08/2021) [facility] History of Past illness Narrative* Problem Noted Date Resolved Date Stage 3 chronic kidney disease 11/26/2017 0 04/02/2019 Acute pain of right shoulder 05/03/2017 Last Assessment & Plan: Shoulder pain for the past 4 weeks, woke up with it. No injury, pain is constant. He does not take any pain pills at day time. Not had Physical Therapy for it Depressive disorder, not elsewhere classified 04/02/2019 Last Assessment & Plan: Sad because his daughter does not let him see his son. 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 documented as of this encounter (statuses as of 12/20/2021) [facility] History of Past illness Narrative* Problem Noted Date Resolved Date Stage 3 chronic kidney disease 11/26/2017 0 04/02/2019 Acute pain of right shoulder 05/03/2017 Last Assessment & Plan: Shoulder pain for the past 4 weeks, woke up with it. No injury, pain is constant. He does not take any pain pills at day time. Not had Physical Therapy for it Depressive disorder, not elsewhere classified 04/02/2019 Last Assessment & Plan: Sad because his daughter does not let him see his son. 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 documented as of this encounter (statuses as of 12/26/2021) [facility] History of Past illness Narrative* Problem Noted Date Resolved Date Stage 3 chronic kidney disease 11/26/2017 0 04/02/2019 Acute pain of right shoulder 05/03/2017 Last Assessment & Plan: Shoulder pain for the past 4 weeks, woke up with it. No injury, pain is constant. He does not take any pain pills at day time. Not had Physical Therapy for it Depressive disorder, not elsewhere classified 04/02/2019 Last Assessment & Plan: Sad because his daughter does not let him see his son. 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 documented as of this encounter (statuses as of 01/12/2022) [facility] History of Past illness Narrative* Problem Noted Date Resolved Date Stage 3 chronic kidney disease 11/26/2017 0 04/02/2019 Acute pain of right shoulder 05/03/2017 Last Assessment & Plan: Shoulder pain for the past 4 weeks, woke up with it. No injury, pain is constant. He does not take any pain pills at day time. Not had Physical Therapy for it Depressive disorder, not elsewhere classified 04/02/2019 Last Assessment & Plan: Sad because his daughter does not let him see his son. 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 documented as of this encounter (statuses as of 02/14/2022) [facility] History of Past illness Narrative* Problem Noted Date Resolved Date Stage 3 chronic kidney disease 11/26/2017 0 04/02/2019 Acute pain of right shoulder 05/03/2017 Last Assessment & Plan: Shoulder pain for the past 4 weeks, woke up with it. No injury, pain is constant. He does not take any pain pills at day time. Not had Physical Therapy for it Depressive disorder, not elsewhere classified 04/02/2019 Last Assessment & Plan: Sad because his daughter does not let him see his son. 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 documented as of this encounter (statuses as of 03/02/2022) [facility] History of Past illness Narrative* Problem Noted Date Resolved Date Stage 3 chronic kidney disease 11/26/2017 0 04/02/2019 Acute pain of right shoulder 05/03/2017 Last Assessment & Plan: Shoulder pain for the past 4 weeks, woke up with it. No injury, pain is constant. He does not take any pain pills at day time. Not had Physical Therapy for it Depressive disorder, not elsewhere classified 04/02/2019 Last Assessment & Plan: Sad because his daughter does not let him see his son. 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 documented as of this encounter (statuses as of 03/08/2022) [facility] History of Past illness Narrative* Problem Noted Date Resolved Date Stage 3 chronic kidney disease 11/26/2017 0 04/02/2019 Acute pain of right shoulder 05/03/2017 Last Assessment & Plan: Shoulder pain for the past 4 weeks, woke up with it. No injury, pain is constant. He does not take any pain pills at day time. Not had Physical Therapy for it Depressive disorder, not elsewhere classified 04/02/2019 Last Assessment & Plan: Sad because his daughter does not let him see his son. 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 documented as of this encounter (statuses as of 03/28/2022) [facility] History of Past illness Narrative* Problem Noted Date Resolved Date Stage 3 chronic kidney disease 11/26/2017 0 04/02/2019 Acute pain of right shoulder 05/03/2017 Last Assessment & Plan: Shoulder pain for the past 4 weeks, woke up with it. No injury, pain is constant. He does not take any pain pills at day time. Not had Physical Therapy for it Depressive disorder, not elsewhere classified 04/02/2019 Last Assessment & Plan: Sad because his daughter does not let him see his son. 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 documented as of this encounter (statuses as of 03/28/2022) [facility] History of Past illness Narrative* Problem Noted Date Resolved Date Stage 3 chronic kidney disease 11/26/2017 0 04/02/2019 Acute pain of right shoulder 05/03/2017 Last Assessment & Plan: Shoulder pain for the past 4 weeks, woke up with it. No injury, pain is constant. He does not take any pain pills at day time. Not had Physical Therapy for it Depressive disorder, not elsewhere classified 04/02/2019 Last Assessment & Plan: Sad because his daughter does not let him see his son. 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 documented as of this encounter (statuses as of 04/06/2022) [facility] History of Past illness Narrative* Problem Noted Date Resolved Date Stage 3 chronic kidney disease 11/26/2017 0 04/02/2019 Acute pain of right shoulder 05/03/2017 Last Assessment & Plan: Shoulder pain for the past 4 weeks, woke up with it. No injury, pain is constant. He does not take any pain pills at day time. Not had Physical Therapy for it Depressive disorder, not elsewhere classified 04/02/2019 Last Assessment & Plan: Sad because his daughter does not let him see his son. 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 documented as of this encounter (statuses as of 04/10/2022) [facility] History of Past illness Narrative* Problem Noted Date Resolved Date Stage 3 chronic kidney disease 11/26/2017 0 04/02/2019 Acute pain of right shoulder 05/03/2017 Last Assessment & Plan: Shoulder pain for the past 4 weeks, woke up with it. No injury, pain is constant. He does not take any pain pills at day time. Not had Physical Therapy for it Depressive disorder, not elsewhere classified 04/02/2019 Last Assessment & Plan: Sad because his daughter does not let him see his son. 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 documented as of this encounter (statuses as of 04/11/2022) [facility] History of Past illness Narrative* Problem Noted Date Resolved Date Stage 3 chronic kidney disease 11/26/2017 0 04/02/2019 Acute pain of right shoulder 05/03/2017 Last Assessment & Plan: Shoulder pain for the past 4 weeks, woke up with it. No injury, pain is constant. He does not take any pain pills at day time. Not had Physical Therapy for it Depressive disorder, not elsewhere classified 04/02/2019 Last Assessment & Plan: Sad because his daughter does not let him see his son. 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 documented as of this encounter (statuses as of 04/25/2022) [facility] History of Past illness Narrative* Problem Noted Date Resolved Date Stage 3 chronic kidney disease 11/26/2017 0 04/02/2019 Acute pain of right shoulder 05/03/2017 Last Assessment & Plan: Shoulder pain for the past 4 weeks, woke up with it. No injury, pain is constant. He does not take any pain pills at day time. Not had Physical Therapy for it Depressive disorder, not elsewhere classified 04/02/2019 Last Assessment & Plan: Sad because his daughter does not let him see his son. 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 documented as of this encounter (statuses as of 05/17/2022) [facility] History of Past illness Narrative* Problem Noted Date Resolved Date Stage 3 chronic kidney disease 11/26/2017 0 04/02/2019 Acute pain of right shoulder 05/03/2017 Last Assessment & Plan: Shoulder pain for the past 4 weeks, woke up with it. No injury, pain is constant. He does not take any pain pills at day time. Not had Physical Therapy for it Depressive disorder, not elsewhere classified 04/02/2019 Last Assessment & Plan: Sad because his daughter does not let him see his son. 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 documented as of this encounter (statuses as of 05/17/2022) [facility] History of Past illness Narrative* Problem Noted Date Resolved Date Stage 3 chronic kidney disease 11/26/2017 0 04/02/2019 Acute pain of right shoulder 05/03/2017 Last Assessment & Plan: Shoulder pain for the past 4 weeks, woke up with it. No injury, pain is constant. He does not take any pain pills at day time. Not had Physical Therapy for it Depressive disorder, not elsewhere classified 04/02/2019 Last Assessment & Plan: Sad because his daughter does not let him see his son. 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 documented as of this encounter (statuses as of 06/12/2022) [facility] History of Past illness Narrative* Problem Noted Date Resolved Date Stage 3 chronic kidney disease 11/26/2017 0 04/02/2019 Acute pain of right shoulder 05/03/2017 Last Assessment & Plan: Shoulder pain for the past 4 weeks, woke up with it. No injury, pain is constant. He does not take any pain pills at day time. Not had Physical Therapy for it Depressive disorder, not elsewhere classified 04/02/2019 Last Assessment & Plan: Sad because his daughter does not let him see his son. 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 documented as of this encounter (statuses as of 07/05/2022) [facility] History of Past illness Narrative* Problem Noted Date Resolved Date Stage 3 chronic kidney disease 11/26/2017 0 04/02/2019 Acute pain of right shoulder 05/03/2017 Last Assessment & Plan: Shoulder pain for the past 4 weeks, woke up with it. No injury, pain is constant. He does not take any pain pills at day time. Not had Physical Therapy for it Depressive disorder, not elsewhere classified 04/02/2019 Last Assessment & Plan: Sad because his daughter does not let him see his son. 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 documented as of this encounter (statuses as of 07/13/2022) [facility] History of Past illness Narrative* Problem Noted Date Resolved Date Stage 3 chronic kidney disease 11/26/2017 0 04/02/2019 Acute pain of right shoulder 05/03/2017 Last Assessment & Plan: Shoulder pain for the past 4 weeks, woke up with it. No injury, pain is constant. He does not take any pain pills at day time. Not had Physical Therapy for it Depressive disorder, not elsewhere classified 04/02/2019 Last Assessment & Plan: Sad because his daughter does not let him see his son. 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 documented as of this encounter (statuses as of 07/20/2022) [facility] History of Past illness Narrative* Problem Noted Date Resolved Date Stage 3 chronic kidney disease 11/26/2017 0 04/02/2019 Acute pain of right shoulder 05/03/2017 Last Assessment & Plan: Shoulder pain for the past 4 weeks, woke up with it. No injury, pain is constant. He does not take any pain pills at day time. Not had Physical Therapy for it Depressive disorder, not elsewhere classified 04/02/2019 Last Assessment & Plan: Sad because his daughter does not let him see his son. 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 documented as of this encounter (statuses as of 08/01/2022) [facility] History of Past illness Narrative* Problem Noted Date Resolved Date Stage 3 chronic kidney disease 11/26/2017 0 04/02/2019 Acute pain of right shoulder 05/03/2017 Last Assessment & Plan: Shoulder pain for the past 4 weeks, woke up with it. No injury, pain is constant. He does not take any pain pills at day time. Not had Physical Therapy for it Depressive disorder, not elsewhere classified 04/02/2019 Last Assessment & Plan: Sad because his daughter does not let him see his son. 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 documented as of this encounter (statuses as of 08/03/2022) [facility] History of Past illness Narrative* Problem Noted Date Resolved Date Stage 3 chronic kidney disease 11/26/2017 0 04/02/2019 Acute pain of right shoulder 05/03/2017 Last Assessment & Plan: Shoulder pain for the past 4 weeks, woke up with it. No injury, pain is constant. He does not take any pain pills at day time. Not had Physical Therapy for it Depressive disorder, not elsewhere classified 04/02/2019 Last Assessment & Plan: Sad because his daughter does not let him see his son. 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 documented as of this encounter (statuses as of 08/06/2022) [facility] History of Past illness Narrative* Problem Noted Date Resolved Date Stage 3 chronic kidney disease 11/26/2017 0 04/02/2019 Acute pain of right shoulder 05/03/2017 Last Assessment & Plan: Shoulder pain for the past 4 weeks, woke up with it. No injury, pain is constant. He does not take any pain pills at day time. Not had Physical Therapy for it Depressive disorder, not elsewhere classified 04/02/2019 Last Assessment & Plan: Sad because his daughter does not let him see his son. 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 documented as of this encounter (statuses as of 08/07/2022) [facility] History of Past illness Narrative* Problem Noted Date Resolved Date Stage 3 chronic kidney disease 11/26/2017 0 04/02/2019 Acute pain of right shoulder 05/03/2017 Last Assessment & Plan: Shoulder pain for the past 4 weeks, woke up with it. No injury, pain is constant. He does not take any pain pills at day time. Not had Physical Therapy for it Depressive disorder, not elsewhere classified 04/02/2019 Last Assessment & Plan: Sad because his daughter does not let him see his son. 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 documented as of this encounter (statuses as of 08/23/2022) [facility] History of Past illness Narrative* Problem Noted Date Resolved Date Stage 3 chronic kidney disease 11/26/2017 0 04/02/2019 Acute pain of right shoulder 05/03/2017 Last Assessment & Plan: Shoulder pain for the past 4 weeks, woke up with it. No injury, pain is constant. He does not take any pain pills at day time. Not had Physical Therapy for it Depressive disorder, not elsewhere classified 04/02/2019 Last Assessment & Plan: Sad because his daughter does not let him see his son. 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 documented as of this encounter (statuses as of 08/23/2022) [facility] History of Past illness Narrative* Problem Noted Date Resolved Date Stage 3 chronic kidney disease 11/26/2017 0 04/02/2019 Acute pain of right shoulder 05/03/2017 Last Assessment & Plan: Shoulder pain for the past 4 weeks, woke up with it. No injury, pain is constant. He does not take any pain pills at day time. Not had Physical Therapy for it Depressive disorder, not elsewhere classified 04/02/2019 Last Assessment & Plan: Sad because his daughter does not let him see his son. 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 documented as of this encounter (statuses as of 08/23/2022) [facility] History of Past illness Narrative* Problem Noted Date Resolved Date Stage 3 chronic kidney disease 11/26/2017 0 04/02/2019 Acute pain of right shoulder 05/03/2017 Last Assessment & Plan: Shoulder pain for the past 4 weeks, woke up with it. No injury, pain is constant. He does not take any pain pills at day time. Not had Physical Therapy for it Depressive disorder, not elsewhere classified 04/02/2019 Last Assessment & Plan: Sad because his daughter does not let him see his son. 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 documented as of this encounter (statuses as of 08/25/2022) [facility] History of Past illness Narrative* Problem Noted Date Resolved Date Stage 3 chronic kidney disease 11/26/2017 0 04/02/2019 Acute pain of right shoulder 05/03/2017 Last Assessment & Plan: Shoulder pain for the past 4 weeks, woke up with it. No injury, pain is constant. He does not take any pain pills at day time. Not had Physical Therapy for it Depressive disorder, not elsewhere classified 04/02/2019 Last Assessment & Plan: Sad because his daughter does not let him see his son. 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 documented as of this encounter (statuses as of 09/24/2022) [facility] History of Past illness Narrative* Problem Noted Date Resolved Date Stage 3 chronic kidney disease 11/26/2017 0 04/02/2019 Acute pain of right shoulder 05/03/2017 Last Assessment & Plan: Shoulder pain for the past 4 weeks, woke up with it. No injury, pain is constant. He does not take any pain pills at day time. Not had Physical Therapy for it Depressive disorder, not elsewhere classified 04/02/2019 Last Assessment & Plan: Sad because his daughter does not let him see his son. 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 documented as of this encounter (statuses as of 09/24/2022) [facility]2018 History of Past illness Narrative* Problem Noted Date Resolved Date Stage 3 chronic kidney disease 11/26/2017 0 04/02/2019 Acute pain of right shoulder 05/03/2017 Last Assessment & Plan: Shoulder pain for the past 4 weeks, woke up with it. No injury, pain is constant. He does not take any pain pills at day time. Not had Physical Therapy for it Depressive disorder, not elsewhere classified 04/02/2019 Last Assessment & Plan: Sad because his daughter does not let him see his son. 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 documented as of this encounter (statuses as of 10/04/2022) [facility] History of Past illness Narrative* Problem Noted Date Resolved Date Stage 3 chronic kidney disease 11/26/2017 0 04/02/2019 Acute pain of right shoulder 05/03/2017 Last Assessment & Plan: Shoulder pain for the past 4 weeks, woke up with it. No injury, pain is constant. He does not take any pain pills at day time. Not had Physical Therapy for it Depressive disorder, not elsewhere classified 04/02/2019 Last Assessment & Plan: Sad because his daughter does not let him see his son. 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 documented as of this encounter (statuses as of 10/15/2022) [facility] History of Past illness Narrative* Problem Noted Date Resolved Date Stage 3 chronic kidney disease 11/26/2017 0 04/02/2019 Acute pain of right shoulder 05/03/2017 Last Assessment & Plan: Shoulder pain for the past 4 weeks, woke up with it. No injury, pain is constant. He does not take any pain pills at day time. Not had Physical Therapy for it Depressive disorder, not elsewhere classified 04/02/2019 Last Assessment & Plan: Sad because his daughter does not let him see his son. 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 documented as of this encounter (statuses as of 11/21/2022) [facility] History of Past illness Narrative* Problem Noted Date Resolved Date Stage 3 chronic kidney disease 11/26/2017 0 04/02/2019 Acute pain of right shoulder 05/03/2017 Last Assessment & Plan: Shoulder pain for the past 4 weeks, woke up with it. No injury, pain is constant. He does not take any pain pills at day time. Not had Physical Therapy for it Depressive disorder, not elsewhere classified 04/02/2019 Last Assessment & Plan: Sad because his daughter does not let him see his son. 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 documented as of this encounter (statuses as of 11/22/2022) [facility] November 01, 2022 10:17am Note Date/Time November 01, 2022 10:16am [facility] Medical Records Department [address] [place] [address] Consultation 11/01/22 1007 MR#: [id number] Acct: [id number] Name: ITALO BURGOS Rep #:[id number] : 1970 51 From: Mayo Levy DPM PCP: Dr. Zaida Gaston MD Status:REG E R Location: ED Assessment & Plan Assessment/Plan (1) Diabetic infection of left foot: PLAN: Exam performed. Radiographs suggestive of abscess to left foot. No evidence of acute gas infection. Patient vitally stable, inflammatory labs pending. Patient received vancomycin and Zosyn in ER. Patient has not eaten yet today. Patient has history of gas infection left foot requiring left partial ray resection. Patient has failed to heal his wounds over the past year. Over the past couple weeks his wounds have worsened and there is noted to be a acute abscess in the wound care center today. At this time I recommend urgent left transmetatarsal amputation. Discussed and patient risks and benefits of performing left transmetatarsal amputation. Due to chronic foot wound nonhealing over the past year is recommended patient to proceed with transmetatarsal amputation for 1 infection clearance purposes and for 2 a balance functional amputation with low risk of reulceration. Discussed with patient performing this urgently as patient has acute infection to left lower extremity and attempt to clear this infection and limit the systemic effects we will plan for transmetatarsal amputation today. Patient in agreement at this time. Recommend infectious disease consult. Patient to be admitted with hospitalist on board. We will follow closely while in house. (2) Abscess of left foot: (3) Cellulitis of foot, left: (4) Type 2 diabetes mellitus with diabetic polyneuropathy: (5) Non-pressure chronic ulcer of other part of left foot with necrosis of bone: HPI Consult Data Date of Consult: 11/01/22 HPI Narrative HPI Narrative: ITALO BURGOS, is a 51 M who presents with a chronic left foot wound that is subsequently worsened over the past couple weeks. Patient was seen by Dr. Medina in the wound care center today. Patient noted to have an acute infection. Patient noticed blistering increased drainage redness warmth and swelling to left foot. At current patient denies any constitutional symptoms. Patient denies any pain. Patient has history of diabetes with significant neuropathy. Patient has been treated for an acute gas infection in the past which required partial amputation of the fifth ray. Patient consenting to transmetatarsal amputation today. No other complaints. [facility] Medical History (Updated 11/01/22 @ 10:[address] Mayo Levy DPM) Acute hypoxemic respiratory failure Acute on chronic diastolic CHF (congestive heart failure) Acute respiratory failure with hypoxia ILDA (acute kidney injury) Anasarca associated with disorder of kidney Anemia of chronic renal failure, stage 4 (severe) Anxiety and depression Atherosclerotic heart disease of [place] coronary artery without angina pectoris Autonomic neuropathy Blind left eye Cellulitis and abscess of right leg Cellulitis of left lower limb Chewing tobacco nicotine dependence Chronic renal failure, stage 4 (severe) Chronic renal failure, stage 5 Chronic ulcer of 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 Congestive heart failure (CHF) COVID-19 COVID-19 Diabetes mellitus type II, uncontrolled Diabetic foot infection Diabetic foot ulcer Diabetic nephropathy Diabetic neuropathy Diabetic retinopathy Dyspnea Essential hypertension Fistula (~12/2018) Gas gangrene of foot GERD (gastroesophageal reflux disease) History of acute myocardial infarction History of left heart catheterization (LHC) (~06/26/11) HLD (hyperlipidemia) Hypertensive emergency Hypoglycemia Hypokalemia Hypoxemia Kidney failure Kidney stones Necrotizing fasciitis Non-pressure chronic ulcer of other part of left foot with fat layer exposed Noncompliance Obesity (BMI 30-39.9) Pneumonia Problem with dialysis access Pulmonary edema Respiratory failure Retention, urine Right leg pain 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 Vision problems Home Medications aspirin 81 mg chewable tablet 81 mg PO DAILY@0800 heart health 08/21/18 [History Last Taken 10/06/19] insulin lispro 100 unit/mL subcutaneous pen See Protocol SQ ACHS blood sugar 10/06/19 [History Last Taken 10/06/19] insulin glargine 100 unit/mL (3 mL) subcutaneous pen 0 unit subcut QHS blood sugar 08/11/20 [History Last Taken Unknown] bupropion HCl 150 mg 24 hr tablet, extended release (Wellbutrin XL) 300 mg PO DAILY mood 09/18/21 [History Last Taken Unknown] docusate sodium 100 mg capsule (Colace) 100 mg PO DAILY constipation 09/18/21 [History Last Taken Unknown] pantoprazole 20 mg tablet,delayed release (Protonix) 20 mg PO DAILY gerd 09/18/21 [History Last Taken Unknown] prednisone 5 mg tablet 5 mg PO DAILY steroid 09/18/21 [History Last Taken Unknown] tacrolimus 1 mg tablet,extended release 24 hr (Envarsus XR) 1 mg PO DAILY rejection med 09/18/21 [History Last Taken Unknown] carvedilol 25 mg tablet 25 mg PO BID 12/26/21 [History Last Taken Unknown] cholecalciferol (vitamin D3) 25 mcg (1,000 unit) capsule (Vitamin D3) 50 mcg PO QWEEK 12/26/21 [History Last Taken Unknown] gabapentin 100 mg tablet 100 mg PO QHS 12/26/21 [History Last Taken Unknown] losartan 25 mg tablet tablet PO 09/05/22 [History Last Taken Unknown] sulfamethoxazole 400 mg-trimethoprim 80 mg tablet tablet PO 09/05/22 [History Last Taken Unknown] Allergy/AdvReac Type Severity Reaction Status Date / Time No Known Allergies Allergy Verified 10/18/22 09:18 Family History Mother Heart disease Hypertension Father Cancer Brother Cancer Diabetes Sister Diabetes Other Alcohol abuse Depression H/O transfusion of whole blood Kidney disease Surgical History History of appendectomy History of arteriovenostomy for renal dialysis (~08/2018) History of artificial lens replacement History of cholecystectomy History of eye surgery Kidney replaced by transplant Renal transplant recipient Status post insertion of dialysis catheter (~08/2018) Social History household members: spouse Smoking Status: Never smoker second hand exposure: No alcohol intake: never substance use type: does not use caffeine: No what type of physical activity do you participate in: none Physical Exam Narrative Patient alert oriented x3. Vascular: Dorsalis pedis posterior tibial pulses palpable 2 out of 4 to bilateral lower extremity. Diffuse edema to left forefoot secondary to cellulitis. Focal increase in warmth to that site. Neurologic: Light touch protective sensation absent to bilateral feet. Dermatologic: Full-thickness wound to lateral left forefoot probing down to fifth ray. The removed vesicle left fourth digit. Large bullous to third digit. Diffuse periwound erythema edema warmth and malodor. Some fluctuance noted to site. No evidence of crepitus. Musculoskeletal: Absent left fifth digit noted. Slight varus deformity of foot secondary to amputation. No other wound contributing deformity. Lab / Micro Data Result Diagrams: 11/01/22 09:49 11/01/22 09:49 11/01/22 1017 <Electronically signed by Mayo Levy DPM> Cosigner Signature (if applicable): CC: Dr. Zaida Gaston MD~ Signed [facility] Work Phone: Discharge summary Author Dona Medina [facility] November 05, 2022 7:23pm Note Date/Time November 05, 2022 7:09pm [facility] Medical Records Department [address] [place] [address] Discharge Summary 11/05/22 1909 MR#: [id number] Acct: [id number] Name: ITALO BURGOS Rep #:[id number] : 1970 51 From: Dona adams DPM PCP: Dr. Zaida Gaston MD Status:ADM I N Location: [place] [address]-1 Providers Date of Admission: 11/01/22 Date of Discharge: 11/05/22 Primary Care Physician: Dr. Zaida Gasotn MD Consultations 11/01/22 14:43 Consult: Hospitalist Routine Consulting Provider: [facility] Reason for Consult: left foot infection, sirg clearance EMERGENT Consult: No Notified: Yes Date Notified: 11/01/22 Time Notified: 11:00 Method of Notification: ED Physician Initiated Consult: Infectious Disease Routine Consulting Provider: Satish Nava Reason for Consult: left foot infection, TMA today EMERGENT Consult: No Notified: Yes Date Notified: 11/01/22 Time Notified: 15:54 Method of Notification: Answering Service Consult: Onc/Wound/vice president of brand management Routine Comment: Reason For Visit: wound Diagnosis Discharge Diagnosis (1) Type 2 diabetes mellitus with left diabetic foot infection: Status: Acute Code(s): E11.628 - Type 2 diabetes mellitus with other skin complications; L08.9 - Local infection of the skin and subcutaneous tissue, unspecified (2) Non-pressure chronic ulcer of other part of left foot with necrosis of bone: Status: Chronic Code(s): L97.524 - Non-pressure chronic ulcer of other part of left foot with necrosis ofbone (3) Type 2 diabetes mellitus with diabetic polyneuropathy: Status: Acute Code(s): E11.42 - Type 2 diabetes mellitus with diabetic polyneuropathy (4) Osteomyelitis of foot, left, acute: Status: Acute Code(s): M86.172 - Other acute osteomyelitis, left ankle and foot (5) History of transmetatarsal amputation of left foot: Status: Acute Code(s): Z89.432 - Acquired absence of left foot Plan Patient seen and evaluated s/p left foot TMA on 11/01/22, POD number- site looks good. Bld Cx with coag neg staph - patient on Vancomycin and Zosyn. ID/Dr. Nava on consult. ID recommending continued oral antibiotics in outpatient setting upon discharge. Changed dressing - 4x4 gauze, kerlix, and tom. Keep dressings clean, dry and intact. No weightbearing left foot. He was instructed to use knee scooter at all times to remain compliant with his nonweightbearing status. Keep left foot elevated. Hospital medicine on consult - appreciate assistance. Patient to be D/c home and will continue oral antibiotics in outpatient setting. He is scheduled to follow-up in office on 11/07/2022. Dona Medina Jr. D.P.M. [facility] [phone] Medications at Discharge Home Medications insulin lispro 100 unit/mL subcutaneous pen 16 unit SQ TID blood sugar 10/06/19 insulin glargine 100 unit/mL (3 mL) subcutaneous pen 44 unit subcut DAILY blood sugar 08/11/20 docusate sodium 100 mg capsule (Colace) 100 mg PO DAILY constipation 09/18/21 pantoprazole 20 mg tablet,delayed release (Protonix) 20 mg PO DAILY gerd 09/18/21 prednisone 5 mg tablet 5 mg PO DAILY steroid 09/18/21 tacrolimus 1 mg tablet,extended release 24 hr (Envarsus XR) 1 mg PO DAILY rejection med 09/18/21 carvedilol 25 mg tablet 25 mg PO BID HEART 12/26/21 cholecalciferol (vitamin D3) 25 mcg (1,000 unit) capsule (Vitamin D3) 50 mcg PO FR SUPPLEMENT' 12/26/21 losartan 25 mg tablet 25 mg PO DAILY BP 09/05/22 sulfamethoxazole 400 mg-trimethoprim 80 mg tablet 1 tablet PO DAILY INFECTION 09/05/22 acetaminophen 500 mg tablet 1,000 mg PO Q4H PRN Pain 11/01/22 aspirin 81 mg chewable tablet 81 mg PO DAILY HEALTH 11/01/22 bupropion HCl 300 mg 24 hr tablet, extended release 300 mg PO DAILY MOOD 11/01/22 gabapentin 100 mg capsule 100 mg PO QHS NERVE PAIN 11/01/22 ciprofloxacin HCl 500 mg tablet (Cipro) 500 mg PO BID #14 tabs 11/05/22 doxycycline hyclate 100 mg capsule 100 mg PO BID #14 caps 11/05/22 Hospital Course Operations - (Transmetatarsal amputation of the left foot) Procedures EKG Summary of Care Provided Minutes Spent on Discharge: 30 Hospital Course: Patient was seen in the wound care center on 11/01/[address] Medina. At thattime patient presented with a degloving injury of the fourth digit full-thickness and a purple/black and necrotic third digit with palpable fluid accumulation of the digit of the left foot. Discussed with patient his history ofprevious amputation of a partial fifth ray, fourth metatarsal head, and base of the fourth proximal phalanx. Discussed with him amputating digit 3 and 4 would only create further issue of local wound care, continued infection, possible infection following healing, continued deformity of the remaining digits with likelihood of wound creation. Discussed with him the need for a transmetatarsalamputation of the left foot. He was sent to the [facility] ED for admitting and receiving of IV antibiotics. Patient did undergo lab work along with chest x-ray and EKG in order for surgical clearance. Medicine team did follow for medical management. Hand Cigar Making Supervisor on-call, Dr. Levy performed transmetatarsal amputation of the left foot on 11/01/2022. Following his procedure he was continued to be seen by podiatry for daily dressing changes with the amputation site viable and healthy with intact skin sutures. No signs of infection. Blood cultures did demonstrate coagulase-negative staph. Wound cultures demonstrated staph epi and PsA. Patient was continuing to receive IV antibiotics Vanco/Zosyn while in house. Infectious disease was also consulted during his stay and recommended outpatient antibiotic use. He is being discharged on doxycycline 100 mg twice daily, and ciprofloxacin 500 mg twice daily. Discussed with patient and strict nonweightbearing status to the left lower extremity with use of his knee scooter, continued elevation of the left lower extremity. Patient is noted to have popped one of the stitches at the most medial aspect of the incision. I discussed with him it is important to keep his legs elevated. Discussed continued proper diabetic diet ensuring bloodglucose remains in control with adequate protein intake to aid in healing. He voices understanding of our discussion today. Patient is being discharged home and will follow-up in office for continued care postoperative transmetatarsal amputation of the left foot. Physical Exam Narrative Patient alert oriented x3. Vascular: Dorsalis pedis posterior tibial pulses palpable 2 out of 4 to bilateral lower extremity. Diffuse edema to left forefoot. Neurologic: Light touch protective sensation absent to foot. Dermatologic: Left foot s/p TMA with sutures intact, no dehiscence - minimal to no erythema, overall bleeding controlled. No visible abscess, on fluctuance, no crepitus, no necrosis. Musculoskeletal: s/p TMA in good position. No evidence of compartment syndrome. Const alert, oriented x3 and no apparent distress General Appearance: cooperative Weight / BMI Weight Weight: 108.409 kg Body Mass Index (BMI) 80.3 ABG / Lab / Microbiology Data Result Diagrams: 11/04/22 04:39 11/04/22 04:39 Laboratory: Laboratory Results - last 24 hr 11/05/22 04:31: C-React Prot Ext Range 5.83 H 11/05/22 12:50: POC Glucose 285 H 11/05/22 14:40: Vancomycin Trough 18.4 H Microbiology: Microbiology 11/01/22 14:13 Amputation - Toe Gram Stain - Final 11/01/22 14:13 Amputation - Toe Wound Culture - Final Staphylococcus epidermidis Enterobacter cloacae complex 11/01/22 14:13 Amputation - Toe Anaerobic Culture - Final No anaerobic bacteria isolated. 11/01/22 14:40 Incision/Surgical Site Gram Stain - Final 11/01/22 14:40 Incision/Surgical Site Wound Culture - Final Staphylococcus epidermidis 11/01/22 14:40 Incision/Surgical Site Anaerobic Culture - Preliminary No growth in 48 hours. 11/01/22 09:50 Blood Culture (Wb) - Left Hand Blood Culture - Preliminary No growth in 48 hours. 11/01/22 09:49 Blood Culture (Wb) - Anticubital Left Bacteria Detection (PCR) - Final Coag Negative Staph 11/01/22 09:49 Blood Culture (Wb) - Anticubital Left Blood Culture - Preliminary Coag Negative Staph 11/01/22 11:30 Nasal Secretion SARS-CoV-2 Antigen (Rapid) - Final D/C Instructions Discharge Diet: No restrictions Discharge Activity: May Shower (May shower with cast bag covering of the left lower extremity. Please keep dressings clean, dry, and intact to the left foot.) and Use Walker (Strict nonweightbearing status to the left lower extremity with use of knee scooter) Weight Bearing Status: No weight bearing (Strict nonweightbearing status to the left lower extremity with use of knee scooter) Keep extremity elevated above heart level: Left Leg (The left lower extremity atall times for postoperative edema control) Call your doctor if you observe: Fever of 101 or Higher, Chest pain, Calf discomfort and Uncontrolled pain Change Dressing in: do not change dressing (Will change dressings at first postoperative visit) Remove Dressing in: leave in place till F/U (Physician will change dressings at first postoperative visit) Cleanse incision/area with: Do not get Incision Wet and Keep Dressing Clean & Dry Please Follow Up With: Mayo Levy DPM When: 3 to 5 days Meaningful Use Info Meaningful Use Diagnoses (Choose all that apply): None applicable Discharge Plan Admission Admit Date/Time: 11/01/22 10:57 Attending Provider: Mayo Levy Primary Care Provider: Zaida Gaston Consulting Providers: Delmy Billy ; Amy Ureña ; William Hayes ; Kerrie Henderson ; Awa Martínez ; Vivian Garrison FITTINGS TIGHTENER ; John Funes NP ; Faviola Josue ; Satish Nava Discharge Orders/Prescriptions Prescriptions: New doxycycline hyclate 100 mg capsule 100 mg PO BID Qty: 14 0RF ciprofloxacin HCl [Cipro] 500 mg tablet 500 mg PO BID Qty: 14 0RF Continued sulfamethoxazole-trimethoprim 400-80 mg tablet 1 tablet PO DAILY Label Comments: TAKE 1 TABLET BY MOUTHTONCE DAILY No Action insulin glargine 100 unit/mL (3 mL) insulin pen 44 unit SC DAILY losartan 25 mg tablet 25 mg PO DAILY Label Comments: TAKE 1 TABLET BY MOUTHAONCE DAILYE insulin lispro 100 UNIT/ML insulin pen 16 unit SQ TID Protocol: 6. Sliding Scale Insulin Custom Condition: mg/dl range Dose/Route: Number of Units Protocol Text: Custom Sliding Scale Rx Instructions: 20u for breakfast and dinner 16u for lunch prednisone 5 mg Tablet 5 mg PO DAILY pantoprazole [Protonix] 20 mg Tablet,Delayed Release (Dr/Ec) 20 mg PO DAILY docusate sodium [Colace] 100 mg Capsule 100 mg PO DAILY Envarsus XR 1 mg tablet extended release 24 hr 1 mg PO DAILY carvedilol 25 mg Tablet 25 mg PO BID cholecalciferol (vitamin D3) [Vitamin D3] 25 mcg (1,000 unit) Capsule 50 mcg PO FR acetaminophen 500 mg Tablet 1,000 mg PO Q4H PRN (Reason: Pain) aspirin [Aspirin Low-Strength] 81 mg Tablet,Chewable 81 mg PO DAILY gabapentin 100 mg capsule 100 mg PO QHS Label Comments: TAKE 1 CAPSULE BY MOUTH AT BEDTIME bupropion HCl 300 mg tablet extended release 24 hr 300 mg PO DAILY Label Comments: TAKE 1 TABLET BY MOUTH ONCE DAILY Referrals / Follow Up: Zaida Gaston MD [Primary Care Provider] - Disposition Disposition (needs filled in before D/C Order can be placed): Home, Self Care 11/05/221922 <Electronically signed by Dona Medina DPM> Cosigner Signature (if applicable): CC: IRIS Medina; Dr. Zaida Gaston MD~ Signed [facility] Work Phone: Discharge summary Author Dona Medina [facility] November 05, 2022 7:13pm Note Date/Time November 05, 2022 7:13pm [facility] Medical Records Department [address] [place] [address] Instructions for Home/Discharge Instructions 11/05/22 1909 MR#: [id number] Acct: [id number] Name: BURGOSITALO Mery Rep #:[id number] : 1970 51 From: Dona adams DPM PCP: Dr. Zaida Gaston MD Status:ADM I N Discharge Instructions Diet Discharge Diet: No restrictions Activity Discharge Activity: May Shower (Cover left lower extremity with cast bag and keep dressings clean, dry, and intact to the left lower extremity.) and Use Walker (Patient to use knee scooter to remain compliant with nonweightbearing status to the left lower extremity) Weight Bearing Status: No weight bearing (To remain nonweightbearing to the leftlower extremity with use of knee scooter) Keep extremity elevated above heart level: Left Leg (Elevate left lower extremity at all times of rest for continued postoperative edema control.) Dressing / Incision Call your doctor if you observe: Fever of 101 or Higher, Chest pain, Calf discomfort and Uncontrolled pain Change Dressing in: do not change dressing (Physician will change dressings at first postoperative visit) Remove Dressing in: leave in place till F/U (Physician will change dressings at first postoperative visit) Cleanse incision/area with: Do not get Incision Wet and Keep Dressing Clean & Dry (To left lower extremity) Follow Up Care Please Follow Up With: Mayo Levy DPM When: 3-5 days Test Results: Test results from this visit will be discussed in further detail at your follow- up appointment, if applicable. Discharge Plan Admission Admit Date/Time: 11/01/22 10:57 Attending Provider: Mayo Levy Primary Care Provider: Zaida Gaston Consulting Providers: Delmy Billy ; Amy Ureña ; William Hayes ; Kerrie Henderson ; Awa Martínez ; Vivian Garrison NP ; John Funes NP ; Faviola Josue ; Satish Nava Discharge Orders/Prescriptions Prescriptions: New doxycycline hyclate 100 mg capsule 100 mg PO BID Qty: 14 0RF ciprofloxacin HCl [Cipro] 500 mg tablet 500 mg PO BID Qty: 14 0RF Continued sulfamethoxazole-trimethoprim 400-80 mg tablet 1 tablet PO DAILY Label Comments: TAKE 1 TABLET BY MOUTHTONCE DAILY No Action insulin glargine 100 unit/mL (3 mL) insulin pen 44 unit SC DAILY losartan 25 mg tablet 25 mg PO DAILY Label Comments: TAKE 1 TABLET BY MOUTHAONCE DAILYE insulin lispro 100 UNIT/ML insulin pen 16 unit SQ TID Protocol: 6. Sliding Scale Insulin Custom Condition: mg/dl range Dose/Route: Number of Units Protocol Text: Custom Sliding Scale Rx Instructions: 20u for breakfast and dinner 16u for lunch prednisone 5 mg Tablet 5 mg PO DAILY pantoprazole [Protonix] 20 mg Tablet,Delayed Release (Dr/Ec) 20 mg PO DAILY docusate sodium [Colace] 100 mg Capsule 100 mg PO DAILY Envarsus XR 1 mg tablet extended release 24 hr 1 mg PO DAILY carvedilol 25 mg Tablet 25 mg PO BID cholecalciferol (vitamin D3) [Vitamin D3] 25 mcg (1,000 unit) Capsule 50 mcg PO FR acetaminophen 500 mg Tablet 1,000 mg PO Q4H PRN (Reason: Pain) aspirin [Aspirin Low-Strength] 81 mg Tablet,Chewable 81 mg PO DAILY gabapentin 100 mg capsule 100 mg PO QHS Label Comments: TAKE 1 CAPSULE BY MOUTH AT BEDTIME bupropion HCl 300 mg tablet extended release 24 hr 300 mg PO DAILY Label Comments: TAKE 1 TABLET BY MOUTH ONCE DAILY Referrals / Follow Up: Zaida Gaston MD [Primary Care Provider] - Disposition Disposition (needs filled in before D/C Order can be placed): Home, Self Care 11/05/221912<Electronically signed by Dona Medina DPAnitha>Dona Medina DPM CC: [employer]-Alberto Garrison; LAISHA Funes; AJ Josue; Delmy Billy; Dr. Amy Ureña MD; Dr. Zaida Gaston MD; Dr. William Hayes DO; Dr. Kendra MD; Dr. Awa Martínez MD; Dr. Satish Nava MD ~ Signed [facility] Work Phone: Evaluation note* Diagnosis S/P kidney transplant- Primary Kidney replaced by transplant Immunosuppressive management encounter following kidney transplant Encounter for long-term (current) use of other medications [facility] Onset Date Resolution Status Hyperglycemia resolved Hyperkalemia resolved [facility] Work Phone: Evaluation note* Diagnosis Research subject- Primary [facility] Diagnosis Onset Date Resolution Status Hyperglycemia resolved Hyperkalemia resolved Type 2 diabetes mellitus with diabetic polyneuropathy acute 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 exposed chronic Non-pressure chronic ulcer o f other part of right foot with fat layer exposed chronic [facility] Work Phone: Evaluation note* Diagnosis Onset Date Resolution Status Type 2 diabetes mellitus with diabetic polyneuropathy acute 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 exposed chronic Non-pressure chronic ulcer o f other part of right foot with fat layer exposed chronic Renal transplant recipient a cute Atherosclerotic heart diseas e of [place] coronary artery without angina pectoris chronic Essential hypertension chron ic HLD (hyperlipidemia) chronic Type 2 diabetes mellitus with diabetic polyneuropathy acute 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 exposed chronic Non-pressure chronic ulcer o f other part of right foot with fat layer exposed chronic [facility] Work Phone: Evaluation note* Diagnosis Kidney replaced by transplant- Primary Encounter for aftercare following kidney transplant Aftercare following organ transplant Post-transplant erythrocytosis Polycythemia, secondary Immunosuppressive management encounter following kidney transplant Encounter for long-term (current) use of other medications [facility] Diagnosis Onset Date Resolution Status Type 2 diabetes mellitus with diabetic polyneuropathy acute 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 exposed chronic Non-pressure chronic ulcer o f other part of right foot with fat layer exposed chronic Renal transplant recipient a cute Atherosclerotic heart diseas e of [place] coronary artery without angina pectoris chronic Essential hypertension chron ic HLD (hyperlipidemia) chronic Type 2 diabetes mellitus with diabetic polyneuropathy acute 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 exposed chronic Non-pressure chronic ulcer o f other part of right foot with fat layer exposed chronic Type 2 diabetes mellitus with diabetic polyneuropathy acute 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 exposed chronic Other specified peripheral vascular diseases chronic [facility] Work Phone: Evaluation note* Diagnosis Onset Date Resolution Status Type 2 diabetes mellitus with diabetic polyneuropathy acute 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 exposed chronic Non-pressure chronic ulcer o f other part of right foot with fat layer exposed chronic Renal transplant recipient a cute Atherosclerotic heart diseas e of [place] coronary artery without angina pectoris chronic Essential hypertension chron ic HLD (hyperlipidemia) chronic Type 2 diabetes mellitus with diabetic polyneuropathy acute 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 exposed chronic Non-pressure chronic ulcer o f other part of right foot with fat layer exposed chronic Type 2 diabetes mellitus with diabetic polyneuropathy acute 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 exposed chronic Other specified peripheral vascular diseases chronic Type 2 diabetes mellitus with diabetic polyneuropathy acute 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 exposed chronic Other specified peripheral vascular diseases chronic Acute hyperglycemia acute ILDA (acute kidney injury) ac ling Diabetic foot infection acut e Necrotizing fasciitis acute Sepsis acute [facility] Work Phone: Evaluation note* Diagnosis Onset Date Resolution Status Type 2 diabetes mellitus with diabetic polyneuropathy acute 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 exposed chronic Non-pressure chronic ulcer o f other part of right foot with fat layer exposed chronic Renal transplant recipient a cute Atherosclerotic heart diseas e of [place] coronary artery without angina pectoris chronic Essential hypertension chron ic HLD (hyperlipidemia) chronic Type 2 diabetes mellitus with diabetic polyneuropathy acute 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 exposed chronic Non-pressure chronic ulcer o f other part of right foot with fat layer exposed chronic Type 2 diabetes mellitus with diabetic polyneuropathy acute 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 exposed chronic Other specified peripheral vascular diseases chronic Type 2 diabetes mellitus with diabetic polyneuropathy acute 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 exposed chronic Other specified peripheral vascular diseases chronic Acute hyperglycemia acute ILDA (acute kidney injury) ac ling Bacteremia acute Cellulitis of left lower limb acute Diabetic foot infection acut e Gas gangrene of foot acute Necrotizing fasciitis acute Renal transplant recipient a cute Sepsis acute 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 Anxiety and depression chron ic Blind left eye chronic Chronic renal failure, stage 5 chronic Diabetes mellitus type II, uncontrolled chronic Diabetic neuropathy chronic Essential hypertension chron ic HLD (hyperlipidemia) chronic 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 exposed chronic Noncompliance chronic [facility] Work Phone: Evaluation note* Diagnosis Kidney replaced by transplant- Primary [facility] Diagnosis Onset Date Resolution Status Non-pressure chronic ulcer o f other part of right foot with fat layer exposed chronic Atherosclerotic heart diseas e of [place] coronary artery without angina pectoris chronic Non-pressure chronic ulcer o f other part of right foot with fat layer exposed chronic Other specified peripheral vascular diseases chronic Acute hyperglycemia resolved ILDA (acute kidney injury) re solved Bacteremia resolved Sepsis resolved 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 acute Other specified peripheral vascular diseases chronic Bacteremia resolved Sepsis resolved [facility] Work Phone: Evaluation note* Diagnosis Amputation of little toe, initial encounter ([facility])- Primary Necrotizing fasciitis ([facility]) Necrotizing fasciitis Diabetic ulcer of left foot associated with type 2 diabetes mellitus, with muscle involvement without evidence of necrosis, unspecified part of foot (HCC) Osteomyelitis of toe (HCC) Unspecified osteomyelitis, ankle and foot [facility] Diagnosis Onset Date Resolution Status Atherosclerotic heart diseas e of [place] coronary artery without angina pectoris chronic Non-pressure chronic ulcer o f other part of right foot with fat layer exposed chronic Other specified peripheral vascular diseases chronic 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 Acute hyperglycemia resolved ILDA (acute kidney injury) re solved Bacteremia resolved Sepsis resolved 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 acute Other specified peripheral vascular diseases chronic Bacteremia resolved Sepsis resolved 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 acute 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 exposed acute 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 [facility] Work Phone: Evaluation note* Diagnosis Onset Date Resolution Status Other specified peripheral vascular diseases chronic 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 Acute hyperglycemia resolved ILDA (acute kidney injury) re solved Bacteremia resolved Sepsis resolved 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 acute Other specified peripheral vascular diseases chronic Bacteremia resolved Sepsis resolved 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 acute 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 exposed acute 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 acute 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 exposed acute Osteomyelitis of metatarsal acute Type 2 diabetes mellitus with diabetic polyneuropathy [facility] Work Phone: Evaluation note* Diagnosis Kidney replaced by transplant- Primary [facility] Diagnosis Encounter for aftercare following kidney transplant- Primary Aftercare following organ transplant Kidney replaced by transplant Immunosuppressive management encounter following kidney transplant Encounter for long-term (current) use of other medications Essential hypertension Unspecified essential hypertension Transaminitis Nonspecific elevation of levels of transaminase or lactic acid dehydrogenase (LDH) [facility] Diagnosis Controlled type 2 diabetes mellitus without complication, without long-term current use of insulin (HCC)- Primary Uncontrolled hypertension Unspecified essential hypertension Need for influenza vaccination Need for prophylactic vaccination and inoculation against influenza [facility]* Diagnosis Controlled type 2 diabetes mellitus without complication, without long-term current use of insulin (HCC)- Primary [facility]* Diagnosis Kidney replaced by transplant- Primary Encounter for aftercare following kidney transplant Aftercare following organ transplant Immunosuppressive management encounter following kidney transplant Encounter for long-term (current) use of other medications Essential hypertension Unspecified essential hypertension [facility]* Diagnosis Type 1 diabetes mellitus on insulin therapy ([facility])- Primary Type I (juvenile type) diabetes mellitus without mention of complication, not stated as uncontrolled Medication management Encounter for long-term (current) use of other medications [facility]* Diagnosis Diabetic ulcer of left foot associated with type 1 diabetes mellitus, unspecified part of foot, unspecified ulcer stage ([facility])- Primary Other hyperlipidemia Hypertension goal BP (blood pressure) < 140/90 Unspecified essential hypertension Diabetic polyneuropathy associated with type 2 diabetes mellitus (HCC) 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 (HCC) End stage renal disease Type 1 diabetes mellitus on insulin therapy ([facility]) Type I (juvenile type) diabetes mellitus without mention of complication, not stated as uncontrolled Moderate episode of recurrent major depressive disorder ([facility]) [facility]* Diagnosis Onset Date Resolution Status 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 acute 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 exposed acute 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 acute 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 exposed acute Osteomyelitis of metatarsal acute 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 acute 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 exposed acute Osteomyelitis of metatarsal acute 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 Diabetic foot ulcer acute 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 acute 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 exposed acute Osteomyelitis of metatarsal acute 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 Diabetic foot ulcer acute [id number] acute 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 acute 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 exposed acute Osteomyelitis of metatarsal acute 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 [facility] Work Phone: Evaluation note* Diagnosis Onset Date Resolution Status 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 acute 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 exposed acute Osteomyelitis of metatarsal acute 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 acute 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 exposed acute Osteomyelitis of metatarsal acute 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 acute 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 exposed acute Osteomyelitis of metatarsal acute Diabetic foot ulcer chronic 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 Diabetic foot ulcer chronic Obesity (BMI 30-39.9) chroni c 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 [id number] acute 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 acute 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 exposed acute Osteomyelitis of metatarsal acute Diabetic foot ulcer chronic 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 [facility] Work Phone: Evaluation note* Diagnosis Type 1 diabetes mellitus on insulin therapy (HCC)- Primary Type I (juvenile type) diabetes mellitus without mention of complication, not stated as uncontrolled [facility] Diagnosis Kidney replaced by transplant- Primary Immunosuppressive management encounter following kidney transplant Encounter for long-term (current) use of other medications Mixed hyperlipidemia [facility] Diagnosis Type 1 diabetes mellitus on insulin therapy (HCC)- Primary Type I (juvenile type) diabetes mellitus without mention of complication, not stated as uncontrolled [facility] Diagnosis Onset Date Resolution Status 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 acute 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 exposed acute Osteomyelitis of metatarsal acute 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 acute 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 exposed acute Osteomyelitis of metatarsal acute Diabetic foot ulcer chronic 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 Diabetic foot ulcer chronic Obesity (BMI 30-39.9) chroni c 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 [id number] acute 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 acute 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 exposed acute Osteomyelitis of metatarsal acute Diabetic foot ulcer chronic 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 [id number] acute 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 acute 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 exposed acute Osteomyelitis of metatarsal acute Diabetic foot ulcer chronic 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 [facility] Work Phone: Evaluation note* Diagnosis Onset Date Resolution Status 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 acute 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 exposed acute Osteomyelitis of metatarsal acute 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 acute 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 exposed acute Osteomyelitis of metatarsal acute Diabetic foot ulcer chronic 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 Diabetic foot ulcer chronic Obesity (BMI 30-39.9) chroni c 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 [id number] acute 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 acute 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 exposed acute Osteomyelitis of metatarsal acute Diabetic foot ulcer chronic 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 [id number] acute 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 acute 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 exposed acute Osteomyelitis of metatarsal acute Diabetic foot ulcer chronic 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 Diabetic foot ulcer chronic Hypertension chronic Obesity (BMI 30-39.9) chroni c 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 acute 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 exposed acute Diabetic foot ulcer chronic 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 Abscess of left foot acute Cellulitis of foot, left acu te Diabetic infection of left foot acute History of CAD (coronary artery disease) acute History of diastolic dysfunction acute Type 2 diabetes mellitus with diabetic polyneuropathy acute Type 2 diabetes mellitus with hyperglycemia acute Type 2 diabetes mellitus wit h left diabetic foot infection acute Anemia of chronic renal failure, stage 4 (severe) chronic Atherosclerotic heart diseas e of [place] coronary artery without angina pectoris chronic Chronic renal failure, stage 4 (severe) chronic Diabetic nephropathy chronic 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 Other specified peripheral vascular diseases [facility] Work Phone: Evaluation note* Diagnosis Onset Date Resolution Status 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 acute 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 exposed acute Osteomyelitis of metatarsal acute 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 acute 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 exposed acute Osteomyelitis of metatarsal acute Diabetic foot ulcer chronic 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 Renal transplant recipient a cute Atherosclerotic heart diseas e of [place] coronary artery without angina pectoris chronic Diabetic foot ulcer chronic Obesity (BMI 30-39.9) chroni c 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 [id number] acute 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 acute 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 exposed acute Osteomyelitis of metatarsal acute Diabetic foot ulcer chronic 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 [id number] acute 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 acute 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 exposed acute Osteomyelitis of metatarsal acute Diabetic foot ulcer chronic 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 Diabetic foot ulcer chronic Hypertension chronic Obesity (BMI 30-39.9) chroni c 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 acute 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 exposed acute Diabetic foot ulcer chronic 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 Abscess of left foot acute Cellulitis of foot, left acu te Diabetic infection of left foot acute History of CAD (coronary artery disease) acute History of diastolic dysfunction acute History of transmetatarsal amputation of left foot acute Osteomyelitis of foot, left, acute acute Renal transplant recipient a cute Type 2 diabetes mellitus with diabetic polyneuropathy acute Type 2 diabetes mellitus with hyperglycemia acute Type 2 diabetes mellitus wit h left diabetic foot infection acute Anemia of chronic renal failure, stage 4 (severe) chronic Atherosclerotic heart diseas e of [place] coronary artery without angina pectoris chronic Chronic renal failure, stage 4 (severe) chronic Diabetic nephropathy chronic 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 Other specified peripheral vascular diseases [facility] Work Phone: Evaluation note* Diagnosis Moderate episode of recurrent major depressive disorder (HCC) [facility] Type 1 diabetes mellitus on insulin therapy (HCC)- Primary Type I (juvenile type) diabetes mellitus without mention of complication, not stated as uncontrolled [facility] Diagnosis Moderate episode of recurrent major depressive disorder (HCC)- Primary 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 (HCC) End stage renal disease Type 1 diabetes mellitus on insulin therapy (HCC) Type I (juvenile type) diabetes mellitus without mention of complication, not stated as uncontrolled Diabetic polyneuropathy associated with type 2 diabetes mellitus (HCC) Right leg weakness Other musculoskeletal symptoms referable to limbs Hypertension goal BP (blood pressure) < 140/90 Unspecified essential hypertension [facility] Kidney replaced by transplant- Primary Encounter for aftercare following kidney transplant Aftercare following organ transplant Immunosuppressive management encounter following kidney transplant Encounter for long-term (current) use of other medications ILDA (acute kidney injury) (HCC) Acute kidney failure, unspecified [facility] Diagnosis Onset Date Resolution Status [id number] acute 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 acute 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 exposed acute Osteomyelitis of metatarsal acute Diabetic foot ulcer chronic 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 Diabetic foot ulcer chronic Hypertension chronic Obesity (BMI 30-39.9) chroni c 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 acute 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 exposed acute Diabetic foot ulcer chronic 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 History of CAD (coronary artery disease) acute History of diastolic dysfunction acute History of transmetatarsal amputation of left foot acute Renal transplant recipient a cute Type 2 diabetes mellitus with diabetic polyneuropathy acute Anemia of chronic renal failure, stage 4 (severe) chronic Atherosclerotic heart diseas e of [place] coronary artery without angina pectoris chronic Chronic renal failure, stage 4 (severe) chronic Diabetic nephropathy chronic Other specified peripheral vascular diseases chronic Type 2 diabetes mellitus with hyperglycemia chronic Abscess of left foot resolve d Cellulitis of foot, left res olved Diabetic infection of left foot resolved 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 resolved Osteomyelitis of foot, left, acute resolved Type 2 diabetes mellitus wit h left diabetic foot infection resolved Diabetic nephropathy chronic Obesity (BMI 30-39.9) chroni c Type 2 diabetes mellitus with hyperglycemia chronic [facility] Work Phone: Evaluation note* Diagnosis Kidney replaced by transplant- Primary documented in this encounter [facility] note* Diagnosis Hypertension goal BP (blood pressure) < 140/90- Primary Unspecified essential hypertension Other hyperlipidemia Type 1 diabetes mellitus on insulin therapy (HCC) Type I (juvenile type) diabetes mellitus without mention of complication, not stated as uncontrolled Moderate episode of recurrent major depressive disorder (HCC) Diarrhea, unspecified type Pain of right lower extremity Left leg claudication (HCC) Peripheral vascular disease, unspecified Viral wart on finger [facility]* Diagnosis Onset Date Resolution Status Diabetic nephropathy chronic Obesity (BMI 30-39.9) chroni c Type 2 diabetes mellitus with hyperglycemia chronic Renal transplant recipient a cute Atherosclerotic heart diseas e of [place] coronary artery without angina pectoris [facility] Work Phone: Evaluation note* Diagnosis Encounter for aftercare following kidney transplant- Primary Aftercare following [facility] Pain of right lower extremity [facility] Diagnosis Diabetic polyneuropathy associated with type 2 diabetes mellitus (HCC)- Primary Moderate episode of recurrent major depressive disorder (HCC) Kidney transplant recipient Elevated alkaline phosphatase level Other nonspecific abnormal serum enzyme levels Erectile dysfunction, unspecified erectile dysfunction type Mixed hyperlipidemia [facility]- Primary Vitamin D deficiency Unspecified vitamin D deficiency Erectile dysfunction, unspecified erectile dysfunction type Immunosuppressive management encounter following kidney transplant Encounter for long-term (current) use of other medications PTE (post-transplant erythrocytosis) Polycythemia, secondary [facility]- Primary [facility] Kidney replaced by transplant- Primary High risk medication use Encounter for long-term (current) use of other medications Vitamin D deficiency Unspecified vitamin D deficiency [facility] Kid[facility]- Primary [facility] Diagnosis Impotence Impotence of organic origin [facility] Diagnosis Impotence of organic origin- Primary [facility] Diagnosis Type 1 diabetes mellitus on insulin therapy (HCC)- Primary Type I (juvenile type) diabetes mellitus without mention of complication, not stated as uncontrolled Kidney transplant recipient Hypertension goal BP (blood pressure) < 140/90 Unspecified essential hypertension Moderate episode of recurrent major depressive disorder (HCC) LUANNE (obstructive sleep apnea) Obstructive sleep apnea (adult) (pediatric) [facility] Diagnosis Moderate episode of recurrent major depressive disorder (HCC) [facility] Diagnosis Moderate episode of recurrent major depressive disorder (HCC) [facility] Diagnosis Impotence of organic origin [facility] Diagnosis Diarrhea, unspecified type- Primary Mixed hyperlipidemia Kidney transplant recipient Diabetic polyneuropathy associated with type 2 diabetes mellitus (HCC) [facility] Diagnosis Immunosuppressed status (HCC)- Primary Unspecified disorder of immune mechanism Kidney replaced by transplant [facility] Diagnosis Diabetic polyneuropathy associated with type 2 diabetes mellitus (HCC) [facility]* Diagnosis Onset Date Resolution Status Obesity (BMI 30-39.9) chroni c Polyneuropathy chronic 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 Renal transplant recipient a cute Atherosclerotic heart diseas e of [place] coronary artery without angina pectoris chronic Chronic renal failure, stage 4 (severe) chronic Hypertension chronic Obesity (BMI 30-39.9) chroni c Type 2 diabetes mellitus with hyperglycemia chronic [facility] Work Phone: Evaluation note* Diagnosis Kidney replaced by transplant- Primary [facility]* Diagnosis Type 1 diabetes mellitus on insulin therapy (HCC)- Primary Type I (juvenile type) diabetes mellitus without mention of complication, not stated as uncontrolled Moderate episode of recurrent major depressive disorder (HCC) Hypertension goal BP (blood pressure) < 140/90 Unspecified essential hypertension Kidney transplant recipient Stage 3a chronic kidney disease (HCC) 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) Colon cancer screening Special screening for malignant neoplasms, colon LUANNE (obstructive sleep apnea) Obstructive sleep apnea (adult) (pediatric) [facility]* Diagnosis Moderate episode of recurrent major depressive disorder (HCC)- Primary [facility]* Diagnosis Diarrhea, unspecified type- Primary Gastroesophageal reflux disease without esophagitis Esophageal reflux FH: colon cancer in first degree relative <60 years old [facility]* Diagnosis Nausea and vomiting, unspecified vomiting type- Primary Diarrhea, unspecified type [facility]* Diagnosis 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, with long-term current use of insulin, macular edema presence unspecified- Primary Mixed hyperlipidemia Other diabetic neurological complication associated with type 1 diabetes mellitus (HCC) Essential hypertension Unspecified essential hypertension Recurrent major depression in partial remission (HCC) Major depressive disorder, recurrent episode, in partial or unspecified remission Other and unspecified hyperlipidemia Depressive disorder, not elsewhere classified Testosterone deficiency Other testicular hypofunction Ear ache, bilateral Other diabetic neurological complication associated with type 1 diabetes mellitus (HCC) Uncontrolled type 2 diabetes mellitus with complication, with long-term current use of insulin Hypertension goal BP (blood pressure) < 140/90 Unspecified essential hypertension Depressive disorder, not elsewhere classified Diabetic polyneuropathy associated with type 2 diabetes mellitus (HCC) Acute pain of right shoulder Diabetic polyneuropathy associated with type 2 diabetes mellitus (HCC)- Primary Uncontrolled type 2 diabetes mellitus with complication, with long-term current use of insulin Essential hypertension Unspecified essential hypertension Hypertension goal BP (blood pressure) < 140/90 Unspecified essential hypertension Diabetic polyneuropathy associated with type 2 diabetes mellitus (HCC)- Primary Type 1 diabetes mellitus on insulin therapy (HCC) Type I (juvenile type) diabetes mellitus without mention of complication, not stated as uncontrolled [facility]* Diagnosis 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, with long-term current use of insulin, macular edema presence unspecified- Primary Mixed hyperlipidemia Other diabetic neurological complication associated with type 1 diabetes mellitus (HCC) Essential hypertension Unspecified essential hypertension Recurrent major depression in partial remission (HCC) Major depressive disorder, recurrent episode, in partial or unspecified remission Other and unspecified hyperlipidemia Depressive disorder, not elsewhere classified Testosterone deficiency Other testicular hypofunction Ear ache, bilateral Other diabetic neurological complication associated with type 1 diabetes mellitus (HCC) Uncontrolled type 2 diabetes mellitus with complication, with long-term current use of insulin Hypertension goal BP (blood pressure) < 140/90 Unspecified essential hypertension Depressive disorder, not elsewhere classified Diabetic polyneuropathy associated with type 2 diabetes mellitus (HCC) Acute pain of right shoulder Diabetic polyneuropathy associated with type 2 diabetes mellitus (HCC)- Primary Uncontrolled type 2 diabetes mellitus with complication, with long-term current use of insulin Essential hypertension Unspecified essential hypertension Hypertension goal BP (blood pressure) < 140/90 Unspecified essential hypertension Type 1 diabetes mellitus on insulin therapy (HCC)- Primary Type I (juvenile type) diabetes mellitus without mention of complication, not stated as uncontrolled Encounter for immunization Need for other specified prophylactic vaccination against single bacterial disease Hypertension goal BP (blood pressure) < 140/90 Unspecified essential hypertension Other hyperlipidemia Stage 3a chronic kidney disease (HCC) [facility]* Diagnosis 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, with long-term current use of insulin, macular edema presence unspecified- Primary Mixed hyperlipidemia Other diabetic neurological complication associated with type 1 diabetes mellitus (HCC) Essential hypertension Unspecified essential hypertension Recurrent major depression in partial remission (HCC) Major depressive disorder, recurrent episode, in partial or unspecified remission Other and unspecified hyperlipidemia Depressive disorder, not elsewhere classified Testosterone deficiency Other testicular hypofunction Ear ache, bilateral Other diabetic neurological complication associated with type 1 diabetes mellitus (HCC) Uncontrolled type 2 diabetes mellitus with complication, with long-term current use of insulin Hypertension goal BP (blood pressure) < 140/90 Unspecified essential hypertension Depressive disorder, not elsewhere classified Diabetic polyneuropathy associated with type 2 diabetes mellitus (HCC) Acute pain of right shoulder Diabetic polyneuropathy associated with type 2 diabetes mellitus (HCC)- Primary Uncontrolled type 2 diabetes mellitus with complication, with long-term current use of insulin Essential hypertension Unspecified essential hypertension Hypertension goal BP (blood pressure) < 140/90 Unspecified essential hypertension Moderate episode of recurrent major depressive disorder (HCC) [facility]* Diagnosis 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, with long-term current use of insulin, macular edema presence unspecified- Primary Mixed hyperlipidemia Other diabetic neurological complication associated with type 1 diabetes mellitus (HCC) Essential hypertension Unspecified essential hypertension Recurrent major depression in partial remission (HCC) Major depressive disorder, recurrent episode, in partial or unspecified remission Other and unspecified hyperlipidemia Depressive disorder, not elsewhere classified Testosterone deficiency Other testicular hypofunction Ear ache, bilateral Other diabetic neurological complication associated with type 1 diabetes mellitus (HCC) Uncontrolled type 2 diabetes mellitus with complication, with long-term current use of insulin Hypertension goal BP (blood pressure) < 140/90 Unspecified essential hypertension Depressive disorder, not elsewhere classified Diabetic polyneuropathy associated with type 2 diabetes mellitus (HCC) Acute pain of right shoulder Diabetic polyneuropathy associated with type 2 diabetes mellitus (HCC)- Primary Uncontrolled type 2 diabetes mellitus with complication, with long-term current use of insulin Essential hypertension Unspecified essential hypertension Hypertension goal BP (blood pressure) < 140/90 Unspecified essential hypertension Type 1 diabetes mellitus on insulin therapy (HCC) Type I (juvenile type) diabetes mellitus without mention of complication, not stated as uncontrolled [facility]* Diagnosis 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, with long-term current use of insulin, macular edema presence unspecified- Primary Mixed hyperlipidemia Other diabetic neurological complication associated with type 1 diabetes mellitus (HCC) Essential hypertension Unspecified essential hypertension Recurrent major depression in partial remission (HCC) Major depressive disorder, recurrent episode, in partial or unspecified remission Other and unspecified hyperlipidemia Depressive disorder, not elsewhere classified Testosterone deficiency Other testicular hypofunction Ear ache, bilateral Other diabetic neurological complication associated with type 1 diabetes mellitus (HCC) Uncontrolled type 2 diabetes mellitus with complication, with long-term current use of insulin Hypertension goal BP (blood pressure) < 140/90 Unspecified essential hypertension Depressive disorder, not elsewhere classified Diabetic polyneuropathy associated with type 2 diabetes mellitus (HCC) Acute pain of right shoulder Diabetic polyneuropathy associated with type 2 diabetes mellitus (HCC)- Primary Uncontrolled type 2 diabetes mellitus with complication, with long-term current use of insulin Essential hypertension Unspecified essential hypertension Hypertension goal BP (blood pressure) < 140/90 Unspecified essential hypertension Hypertension goal BP (blood pressure) < 140/90- Primary Unspecified essential hypertension Type 1 diabetes mellitus on insulin therapy (HCC) Type I (juvenile type) diabetes mellitus without mention of complication, not stated as uncontrolled Moderate episode of recurrent major depressive disorder (HCC) Vitamin D deficiency Unspecified vitamin D deficiency Gastroesophageal reflux disease without esophagitis Esophageal reflux [facility] noteNo assessment information availableWMer[facility] Work [facility]: Evaluation note* Diagnosis 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, with long-term current use of insulin, macular edema presence unspecified- Primary Mixed hyperlipidemia Other diabetic neurological complication associated with type 1 diabetes mellitus (HCC) Essential hypertension Unspecified essential hypertension Recurrent major depression in partial remission Major depressive disorder, recurrent episode, in partial or unspecified remission Other and unspecified hyperlipidemia Depressive disorder, not elsewhere classified Testosterone deficiency Other testicular hypofunction Ear ache, bilateral Other diabetic neurological complication associated with type 1 diabetes mellitus (HCC) Uncontrolled type 2 diabetes mellitus with complication, with long-term current use of insulin Hypertension goal BP (blood pressure) < 140/90 Unspecified essential hypertension Depressive disorder, not elsewhere classified Diabetic polyneuropathy associated with type 2 diabetes mellitus (HCC) Acute pain of right shoulder Diabetic polyneuropathy associated with type 2 diabetes mellitus (HCC)- Primary Uncontrolled type 2 diabetes mellitus with complication, with long-term current use of insulin Essential hypertension Unspecified essential hypertension Hypertension goal BP (blood pressure) < 140/90 Unspecified essential hypertension Hospital discharge follow-up- Primary Other follow-up examination Hypertension goal BP (blood pressure) < 140/90 Unspecified essential hypertension Kidney transplant recipient (HCC) History of kidney stones Personal history of urinary calculi Type 1 diabetes mellitus on insulin therapy (HCC) Type I (juvenile type) diabetes mellitus without mention of complication, not stated as uncontrolled Hyperglycemia Other abnormal glucose Moderate episode of recurrent major depressive disorder (HCC) Hydronephrosis, unspecified hydronephrosis type [facility]* Diagnosis 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, with long-term current use of insulin, macular edema presence unspecified- Primary Mixed hyperlipidemia Other diabetic neurological complication associated with type 1 diabetes mellitus (HCC) Essential hypertension Unspecified essential hypertension Recurrent major depression in partial remission Major depressive disorder, recurrent episode, in partial or unspecified remission Other and unspecified hyperlipidemia Depressive disorder, not elsewhere classified Testosterone deficiency Other testicular hypofunction Ear ache, bilateral Other diabetic neurological complication associated with type 1 diabetes mellitus (HCC) Uncontrolled type 2 diabetes mellitus with complication, with long-term current use of insulin Hypertension goal BP (blood pressure) < 140/90 Unspecified essential hypertension Depressive disorder, not elsewhere classified Diabetic polyneuropathy associated with type 2 diabetes mellitus (HCC) Acute pain of right shoulder Diabetic polyneuropathy associated with type 2 diabetes mellitus (HCC)- Primary Uncontrolled type 2 diabetes mellitus with complication, with long-term current use of insulin Essential hypertension Unspecified essential hypertension Hypertension goal BP (blood pressure) < 140/90 Unspecified essential hypertension Type 1 diabetes mellitus on insulin therapy (HCC)- Primary Type I (juvenile type) diabetes mellitus without mention of complication, not stated as uncontrolled Medication management Encounter for long-term (current) use of other medications documented in this encounter [facility] note* Diagnosis 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, with long-term current use of insulin, macular edema presence unspecified- Primary Mixed hyperlipidemia Other diabetic neurological complication associated with type 1 diabetes mellitus (HCC) Essential hypertension Unspecified essential hypertension Recurrent major depression in partial remission Major depressive disorder, recurrent episode, in partial or unspecified remission Other and unspecified hyperlipidemia Depressive disorder, not elsewhere classified Testosterone deficiency Other testicular hypofunction Ear ache, bilateral Other diabetic neurological complication associated with type 1 diabetes mellitus (HCC) Uncontrolled type 2 diabetes mellitus with complication, with long-term current use of insulin Hypertension goal BP (blood pressure) < 140/90 Unspecified essential hypertension Depressive disorder, not elsewhere classified Diabetic polyneuropathy associated with type 2 diabetes mellitus (HCC) Acute pain of right shoulder Diabetic polyneuropathy associated with type 2 diabetes mellitus (HCC)- Primary Uncontrolled type 2 diabetes mellitus with complication, with long-term current use of insulin Essential hypertension Unspecified essential hypertension Hypertension goal BP (blood pressure) < 140/90 Unspecified essential hypertension Moderate episode of recurrent major depressive disorder (HCC) [facility] Author Dr. Levy [facility] November 01, 2022 10:43am Note Date/Time November 01, 2022 10:42am [facility] Medical Records Department [address] [place] [address] History & Physical Exam 11/01/22 1041 MR#: [id number] Acct: [id number] Name: ITALO BURGOS Rep #:[id number] : [id number] From: Mayo Levy DPM PCP: Dr. Zaida Gaston MD Status:REG S DC Location: [place] [address] HPI - General General Date of Admission: 11/01/22 Date of Service: 11/01/22 Chief Complaint: Left foot infection HPI Narrative ITALO BURGOS, is a 51 M who presents with a chronic left foot wound that is subsequently worsened over the past couple weeks.? Patient was seen by Dr. Medina in the wound care center today.? Patient noted to have an acute infection.? Patient noticed blistering increased drainage redness warmth and swelling to left foot.? At current patient denies any constitutional symptoms.? Patient denies any pain.? Patient has history of diabetes with significant neuropathy.? Patient has been treated for an acute gas infection in the past which required partial amputation of the fifth ray.? Patient consenting to transmetatarsal amputation today.? No other complaints. [facility] Medical History Acute hypoxemic respiratory failure Acute on chronic diastolic CHF (congestive heart failure) Acute respiratory failure with hypoxia ILDA (acute kidney injury) Anasarca associated with disorder of kidney Anemia of chronic renal failure, stage 4 (severe) Anxiety and depression Atherosclerotic heart disease of [place] coronary artery without angina pectoris Autonomic neuropathy Blind left eye Cellulitis and abscess of right leg Cellulitis of left lower limb Chewing tobacco nicotine dependence Chronic renal failure, stage 4 (severe) Chronic renal failure, stage 5 Chronic ulcer of 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 Congestive heart failure (CHF) COVID-19 COVID-19 Diabetes mellitus type II, uncontrolled Diabetic foot infection Diabetic foot ulcer Diabetic nephropathy Diabetic neuropathy Diabetic retinopathy Dyspnea Essential hypertension Fistula (~12/2018) Gas gangrene of foot GERD (gastroesophageal reflux disease) History of acute myocardial infarction History of left heart catheterization (LHC) (~06/26/11) HLD (hyperlipidemia) Hypertensive emergency Hypoglycemia Hypokalemia Hypoxemia Kidney failure Kidney stones Necrotizing fasciitis Non-pressure chronic ulcer of other part of left foot with fat layer exposed Noncompliance Obesity (BMI 30-39.9) Pneumonia Problem with dialysis access Pulmonary edema Respiratory failure Retention, urine Right leg pain 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 Vision problems Home Medications aspirin 81 mg chewable tablet 81 mg PO DAILY@0800 heart health 08/21/18 [History Last Taken 10/06/19] insulin lispro 100 unit/mL subcutaneous pen See Protocol SQ ACHS blood sugar 10/06/19 [History Last Taken 10/06/19] insulin glargine 100 unit/mL (3 mL) subcutaneous pen 0 unit subcut QHS blood sugar 08/11/20 [History Last Taken Unknown] bupropion HCl 150 mg 24 hr tablet, extended release (Wellbutrin XL) 300 mg PO DAILY mood 09/18/21 [History Last Taken Unknown] docusate sodium 100 mg capsule (Colace) 100 mg PO DAILY constipation 09/18/21 [History Last Taken Unknown] pantoprazole 20 mg tablet,delayed release (Protonix) 20 mg PO DAILY gerd 09/18/21 [History Last Taken Unknown] prednisone 5 mg tablet 5 mg PO DAILY steroid 09/18/21 [History Last Taken Unknown] tacrolimus 1 mg tablet,extended release 24 hr (Envarsus XR) 1 mg PO DAILY rejection med 09/18/21 [History Last Taken Unknown] carvedilol 25 mg tablet 25 mg PO BID 12/26/21 [History Last Taken Unknown] cholecalciferol (vitamin D3) 25 mcg (1,000 unit) capsule (Vitamin D3) 50 mcg PO QWEEK 12/26/21 [History Last Taken Unknown] gabapentin 100 mg tablet 100 mg PO QHS 12/26/21 [History Last Taken Unknown] losartan 25 mg tablet tablet PO 09/05/22 [History Last Taken Unknown] sulfamethoxazole 400 mg-trimethoprim 80 mg tablet tablet PO 09/05/22 [History Last Taken Unknown] Allergy/AdvReac Type Severity Reaction Status Date / Time No Known Allergies Allergy Verified 10/18/22 09:18 Family History Mother Heart disease Hypertension Father Cancer Brother Cancer Diabetes Sister Diabetes Other Alcohol abuse Depression H/O transfusion of whole blood Kidney disease Surgical History History of appendectomy History of arteriovenostomy for renal dialysis (~08/2018) History of artificial lens replacement History of cholecystectomy History of eye surgery Kidney replaced by transplant Renal transplant recipient Status post insertion of dialysis catheter (~08/2018) Social History household members: spouse Smoking Status: Never smoker second hand exposure: No alcohol intake: never substance use type: does not use caffeine: No what type of physical activity do you participate in: none ROS Constitutional Constitutional: Denies chills, fever(s) or weight loss Eyes Eyes: Denies blurry vision, change in vision or diplopia ENT HEENT: Denies ear pain, rhinorrhea or sore throat Cardiovascular Cardiovascular: Denies chest pain, orthopnea, palpitations, paroxysmal nocturnaldyspnea or racing heartbeat Respiratory/Chest Respiratory/Chest: Denies cough, dyspnea or dyspnea on exertion Gastrointestinal Gastrointestinal: Denies abdominal pain, constipation, diarrhea, melena, nausea or vomiting Genitourinary Genitourinary: Denies dysuria, hematuria or urinary frequency Musculoskeletal Musculoskeletal: Reports other Details: Diabetic foot infection ; Denies arthralgias, back pain, myalgias or neck pain Neurologic Neurologic: Reports other Details: Patient states he has no sensation in his feet due to diabetic neuropathy. ; Denies headache(s), paresthesias or weakness Psychiatric Psychiatric: Reports depression Endocrine Endocrinology: Reports polydipsia and polyuria; Denies cold intolerance or heat intolerance Hematologic/Lymphatic Hematologic/Lymphatic: Reports systems reviewed and no addt'l complaints, exceptas documented Vital Signs Vital Signs Vital Signs: 11/01/22 09:23 11/01/22 09:42 11/01/22 09:48 Temperature 97.6 F L 97.6 F L Temperature Source Temporal Temporal Pulse Rate 89 89 Respiratory Rate 16 16 Blood Pressure 166/79 H 166/79 H Blood Pressure Mean 108 108 Blood Pressure Source Blood Pressure Position Blood Pressure Location Pulse Ox 97 98 Oxygen Delivery Method Room Air Room Air Room Air 11/01/22 10:26 Temperature Temperature Source Oral Pulse Rate 81 Respiratory Rate 16 Blood Pressure Blood Pressure Mean Blood Pressure Source Monitor Blood Pressure Position Sitting Blood Pressure Location Left Arm Pulse Ox 96 Oxygen Delivery Method Room Air Weight Weight: 239.6 kg Body Mass Index (BMI) 80.3 Physical Exam Narrative Patient alert oriented x3. Vascular: Dorsalis pedis posterior tibial pulses palpable 2 out of 4 to bilateral lower extremity. Diffuse edema to left forefoot secondary to cellulitis. Focal increase in warmth to that site. Neurologic: Light touch protective sensation absent to bilateral feet. Dermatologic: Full-thickness wound to lateral left forefoot probing down to fifth ray. The removed vesicle left fourth digit. Large bullous to third digit. Diffuse periwound erythema edema warmth and malodor. Some fluctuance noted to site. No evidence of crepitus. Musculoskeletal: Absent left fifth digit noted. Slight varus deformity of foot secondary to amputation. No other wound contributing deformity. Results Lab / Micro Data Result Diagrams: 11/01/22 09:49 11/01/22 09:49 Labs: Laboratory Results - last 24 hr 11/01/22 09:49: WBC 6.4, RBC 5.23, Hgb 15.9, Hct 49.7, MCV 95.0 H, MCH 30.4, MCHC 32.0, RDW Std Deviation 44.9 H, RDW Coeff of Tomy 12.7, Plt Count 199, MPV 9.9, Immature Gran % (Auto) 0.500, Neut % (Auto) 67.5, Lymph % (Auto) 21.1, Campbell% (Auto) 9.7, Eos % (Auto) 0.9, Baso % (Auto) 0.3, Absolute Neuts (auto) 4.3, Absolute Lymphs (auto) 1.35, Nucleated RBC % 0, ESR 10 11/01/22 09:49: PT 13.4, INR 1.1, APTT 28.9 11/01/22 09:49: Sodium 139, Potassium 5.2 H, Chloride 108 H, Carbon Dioxide 25.0, Anion Gap 6, BUN 37 H, Creatinine 1.63 H, Estim Creat Clear Calc 50.71, Est GFR (MDRD) Af Amer 57 L, Est GFR (MDRD) Non-Af 47 L, BUN/Creatinine Ratio 22.7 H, Glucose 266 H, Calcium 9.6, Total Bilirubin 0.50, AST 23, ALT 41, Alkaline Phosphatase 156 H, C-React Prot Ext Range 10.80 H, Total Protein 7.2, Albumin 3.5, Globulin 3.7, Albumin/Globulin Ratio 0.9 11/01/22 09:49: Lactic Acid 1.4 Radiology Impression Foot X-Ray 11/01/22 09:42 IMPRESSION: Status post resection of the distal portion of the fifth metatarsal as well as the fifth toe. Partial resection of the distal aspect of the fourth metatarsal and proximal base of the fourth toe. Diffuse soft tissue swelling. Findings suggestive of a an ulceration overlying the distal aspect of the fourth metatarsal. Vascular calcification. Electronically Signed: Tristan France MD at 10:25 EST , Chest X-Ray 11/01/22 10:05 IMPRESSION: Cardiomegaly. The lungs are clear. Electronically Signed: Tristan France MD at 10:30 EST , Assessment & Plan Assessment/Plan (1) Diabetic infection of left foot: PLAN: Exam performed. Radiographs suggestive of abscess to left foot. No evidence of acute gas infection. Patient vitally stable, inflammatory labs pending. Patient received vancomycin and Zosyn in ER. Patient has not eaten yet today. Patient has history of gas infection left foot requiring left partial ray resection. Patient has failed to heal his wounds over the past year. Over the past couple weeks his wounds have worsened and there is noted to be a acute abscess in the wound care center today. At this time I recommend urgent left transmetatarsal amputation. Chest x-ray EKG pending. Currently on OR schedule at 12 PM. Discussed and patient risks and benefits of performing left transmetatarsal amputation. Due to chronic foot wound nonhealing over the past year is recommended patient to proceed with transmetatarsal amputation for 1 infection clearance purposes and for 2 a balance functional amputation with low risk of reulceration. Discussed with patient performing this urgently as patient has acute infection to left lower extremity and attempt to clear this infection and limit the systemic effects we will plan for transmetatarsal amputation today. Patient in agreement at this time. Recommend infectious disease consult. Patient to be admitted with hospitalist on board. We will follow closely while in house. (2) Abscess of left foot: (3) Cellulitis of foot, left: (4) Type 2 diabetes mellitus with diabetic polyneuropathy: (5) Non-pressure chronic ulcer of other part of left foot with necrosis of bone: 11/01/22 1043 <Electronically signed by Mayo Levy DPM> Cosigner Signature (if applicable): CC: IRIS Levy; Dr. Zaida Gaston MD~ Signed [facility] Work Phone: Hospital Discharge instructions Additional Instructions Your creatinine 2.1. You are given a liter follow-up with us. Use Reglan as needed for dizziness symptoms. Follow-up your doctor recheck labs.[facility] Work Phone: Progress note Author Dona Medina [facility] November 05, 2022 7:08pm Note Date/Time November 05, 2022 7:08pm [facility] Medical Records Department [address] [place] [address] Progress Note 11/05/22 190 MR#: [id number] Acct: [id number] Name: ITALO BURGOS Rep #:[id number] : 1970 51 From: Dona adams DPM PCP: Dr. Zaida Gaston MD Status:ADM I N Location: MS3 UC025-5 Subjective Subjective Patient was seen bedside sitting up in chair with feet on ground. He states he is ready to go home today. Says infectious disease saw him today recommending continued oral antibiotics in outpatient setting. Denies any constitutional symptoms. Has no further complaints. Objective Data Objective Data Vital Signs: Vital Signs Temp Pulse Resp BP Pulse Ox O2 Del Method O2 Flow Rate 98.4 F 84 18 149/80 H 94 Room Air 2 11/05/22 15:24 11/05/22 15:24 11/05/22 15:24 11/05/22 15:24 11/05/22 15:24 11/05/22 15:24 11/01/22 17:43 Oxygen Flow Rate (L/min) 2 Oxygen Delivery Method Room Air Weight: 108.409 kg Body Mass Index (BMI) 80.3 Intake & Output: Intake and Output for Last 24 Hours 11/03/22 11/04/22 11/05/22 23:59 23:59 23:59 Intake Total 1300 / 1300 350 / 350 750.00 / 750.00 Output Total 200 / 200 Balance 1300 / 1300 350 / 150 550.00 / 550.00 Lab / Micro Data Result Diagrams: 11/04/22 04:39 11/04/22 04:39 Labs: Laboratory Results - last 24 hr 11/05/22 04:31: C-React Prot Ext Range 5.83 H 11/05/22 12:50: POC Glucose 285 H 11/05/22 14:40: Vancomycin Trough 18.4 H Micro: Microbiology 11/01/22 14:13 Amputation - Toe Gram Stain - Final 11/01/22 14:13 Amputation - Toe Wound Culture - Final Staphylococcus epidermidis Enterobacter cloacae complex 11/01/22 14:13 Amputation - Toe Anaerobic Culture - Final No anaerobic bacteria isolated. 11/01/22 14:40 Incision/Surgical Site Gram Stain - Final 11/01/22 14:40 Incision/Surgical Site Wound Culture - Final Staphylococcus epidermidis 11/01/22 14:40 Incision/Surgical Site Anaerobic Culture - Preliminary No growth in 48 hours. 11/01/22 09:50 Blood Culture (Wb) - Left Hand Blood Culture - Preliminary No growth in 48 hours. 11/01/22 09:49 Blood Culture (Wb) - Anticubital Left Bacteria Detection (PCR) - Final Coag Negative Staph 11/01/22 09:49 Blood Culture (Wb) - Anticubital Left Blood Culture - Preliminary Coag Negative Staph 11/01/22 11:30 Nasal Secretion SARS-CoV-2 Antigen (Rapid) - Final Physical Exam Narrative Patient alert oriented x3. Vascular: Dorsalis pedis posterior tibial pulses palpable 2 out of 4 to bilateral lower extremity. Diffuse edema to left forefoot. Neurologic: Light touch protective sensation absent to foot. Dermatologic: Left foot s/p TMA with sutures intact, no dehiscence - minimal to no erythema, overall bleeding controlled. No visible abscess, on fluctuance, no crepitus, no necrosis. Musculoskeletal: s/p TMA in good position. No evidence of compartment syndrome. Const alert, oriented x3 and no apparent distress General Appearance: cooperative Assessment & Plan Assessment/Plan (1) Type 2 diabetes mellitus with left diabetic foot infection: (2) Non-pressure chronic ulcer of other part of left foot with necrosis of bone: (3) Type 2 diabetes mellitus with diabetic polyneuropathy: (4) Osteomyelitis of foot, left, acute: (5) History of transmetatarsal amputation of left foot: PLAN: Plan Patient seen and evaluated s/p left foot TMA on 11/01/22, POD number- site looks good. Bld Cx with coag neg staph - patient on Vancomycin and Zosyn. ID/Dr. Nava on consult. ID recommending continued oral antibiotics in outpatient setting upon discharge. Changed dressing - 4x4 gauze, kerlix, and tom. Keep dressings clean, dry and intact. No weightbearing left foot. He was instructed to use knee scooter at all times to remain compliant with his nonweightbearing status. Keep left foot elevated. Hospital medicine on consult - appreciate assistance. Patient to be D/c home and will continue oral antibiotics in outpatient setting. He is scheduled to follow-up in office on 11/07/2022. Dona Medina Jr. D.P.M. [facility] [phone] 11/05/221907 <Electronically signed by Dona Medina DPM> Dona Vazquez Cosigner Signature (if applicable): CC: ~ Signed [facility] Work Phone: Reason for referral (narrative)* Outpatient Procedure (Routine) - Authorized Specialty Diagnoses / Procedures Referred By Carloz t Referred To [facility] Diagnoses Left leg claudication (HCC) Procedures PVR LEG W/EXC ROLY VAS LAB N-INVAS PHYSIOLOGIC STD LXTR ART COMPL BI Zaida Gaston MD [address] [place] [address] [facility] [place] [address] [place] [address] Referral ID Status Reason Start Date Expiration Date Visits Requested Visits Authorized [id number] Authorized Auto-Generat ed Referral 02/25/2023 02/25/2024 1 1 * Outpatient Procedure (Routine) - Authorized Specialty Diagnoses / Procedures Referred By Ghassanac t Referred To Contact [facility] [place] [facility] Diagnoses Pain of right lower extremity Procedures US LEG VEIN DVT UNL VAS LAB DUP-SCAN XTR VEINS UNILATERAL/LIMITED STUDY Zaida Gaston MD [address] [place] [address] [facility] [address] [place] [address] Referral ID Status Reason Start Date Expiration Date Visits Requested Visits Authorized [id number] Authorized Auto-Generat ed Referral 02/25/2023 02/25/2024 1 1 * Consult, Test, Treat (Routine) - Pending Review Specialty Diagnoses / Procedures Referred By Carloz alarcon Referred To Contact Gastroenterology Diagnoses Diarrhea, unspecified type Procedures CONSULT TO GASTROENTEROLOGY OFFICE/OUTPATIENT NEW HIGH MDM 60-74 MINUTES Zaida Gaston MD [facility] [place] [address] Referral ID Status Reason Start Date Expiration Date Visits Requested Visits Authorized [id number] Pending Review PCP Requested Referral 02/25/2023 02/25/2024 1 1 [facility] for referral (narrative)* Outpatient Procedure (Routine) - New Request Specialty Diagnoses / Procedures Referred By Carloz t Referred To Contact [facility] Diagnoses Diarrhea, unspecified type Procedures COLONOSCOPY DIAGNOSTIC COLONOSCOPY FLX DX W/COLLJ SPEC WHEN PFJOSEPHINED Nia James, BARREL DRAINER.WORKFORCE DEVELOPMENT SPECIALIST [address] [place] [address] [facility] [place] [address] [place] [address] Referral ID Status Reason Start Date Expiration Date Visits Requested Visits Authorized [id number] New Request Auto-Generat ed Referral 03/24/2024 03/24/2025 1 1 * Outpatient Procedure (Routine) - New Request Specialty Diagnoses / Procedures Referred By Contac t Referred To Contact [facility] Diagnoses Diarrhea, unspecified type Procedures EGD DIAGNOSTIC ESOPHAGOGASTRODUODENOSC OPY TRANSORAL DIAGNOSTIC Nia James APRN.WORKFORCE DEVELOPMENT SPECIALIST [address] [place] [address] [address] Referral ID Status Reason Start Date Expiration Date Visits Requested Visits Authorized [id number] New Request Auto-Generat ed Referral 03/24/2024 03/24/2025 1 1 [facility] for referral (narrative)* Outpatient Procedure (Routine) - Closed Specialty Diagnoses / Procedures Referred By Carloz t Referred To Contact Diagnoses Diarrhea, unspecified type Procedures COLONOSCOPY DIAGNOSTIC COLONOSCOPY FLX DX W/COLLJ SPEC WHEN Nia Anne APRN.WORKFORCE DEVELOPMENT SPECIALIST [address] [place] [address] [facility] [address] [place] [address] Referral ID Status Reason Start Date Expiration Date V isits Requested Visits Authorized [id number] Closed Auto-Generate d Referral 04/01/2024 03/24/2025 1 1 * Outpatient Procedure (Routine) - Closed Specialty Diagnoses / Procedures Referred By Carloz t Referred To Contact [facility] Diagnoses Diarrhea, unspecified type Procedures EGD DIAGNOSTIC ESOPHAGOGASTRODUODENOSC OPY TRANSORAL DIAGNOSTIC Nia James APRN.WORKFORCE DEVELOPMENT SPECIALIST [address] [place] [address] [facility] [address] [place] [address] Referral ID Status Reason Start Date Expiration Date V isits Requested Visits Authorized [id number] Closed Auto-Generate d Referral 03/24/2024 03/24/2025 1 1 [facility] for referral (narrative)No reason for referral information [facility]er[facility] Work Phone: Reason for visit Narrative* Outpatient Procedure (Routine) - Closed Specialty Diagnoses / Procedures Referred By Contac t Referred To [facility] Diagnoses Pain of right lower extremity Procedures US LEG VEIN DVT UNL VAS LAB DUP-SCAN XTR VEINS UNILATERAL/LIMITED STUDY Zaida Gaston MD [address] [place] [address] [facility] [place] [address] [place] [address] Referral ID Status Reason Start Date Expiration Date V isits Requested Visits Authorized [id number] Closed Auto-Generate d Referral 02/25/2023 02/25/2024 1 1 [facility] for visit Narrative* Outpatient Procedure (Routine) - Closed Specialty Diagnoses / Procedures Referred By Contac t Referred To Contact Diagnoses Diarrhea, unspecified type Procedures COLONOSCOPY DIAGNOSTIC COLONOSCOPY FLX DX W/COLLJ SPEC WHEN Nia Anne APRN.CNP [address] [place] [address] [facility] [address] [place] [address] Referral ID Status Reason Start Date Expiration Date V isits Requested Visits Authorized [id number] Closed Auto-Generate d Referral 04/01/2024 03/24/2025 1 1 [facility] Advance Directives No Advanced Directives Records FoundDocuments on File Type Date Recorded Patient Imposer Expl anation Advance Directive(s) 06/22/2021 9:47 AM Advance Directive(s) 03/09/2021 6:34 PM Advance Directive(s) 03/15/2020 7:10 AM Advance Directive(s) 02/23/2020 11:11 AM Advance Directive(s) 12/04/2018 6:31 AM Advance Directive(s) 11/22/2017 9:25 AM Advance Directive Response Recorded Date/ Time Name of Medical Power of Rewriter lowell benedict September 14, 2021 9:48am Advance Directives Yes October 11:51am Living Will Yes September 18 1:30am Power of Rewriter Yes September 18, 2021 1:30am Advance Directive Response Recorded Date/ Time Advance Directives Yes October 11:51am Living Will Yes September 18 1:30am Power of Rewriter Yes September 18, 2021 1:30am Advance Directive Response Recorded Date/ Time Name of Medical Power of Rewriter [facility] March 24, 2022 1:04am Advance Directives Yes October 11:51am Living Will Yes March 24, 2022 1:04am Power of Rewriter Yes March 24 1:04am Advance Directive Response Recorded Date/ Time Name of Medical Power of Rewriter [facility] March 24, 2022 3:32am Advance Directives Yes October 11:51am Living Will Yes March 24, 2022 3:32am Power of Rewriter Yes March 24 3:32am Advance Directive Response Recorded Date/ Time Advance Directives Yes October 10:51am Living Will No August 28, 022 10:08am Power of Rewriter No August 28, 2022 10:08am Advance Directive Response Recorded Date/ Time Name of Medical Power of Rewriter [facility] November 01, 2022 9:38am Advance Directives Yes October 10:51am Living Will Yes November 01, 2 023 9:38am Power of Rewriter Yes November 01, 2022 9:38am Advance Directive Response Recorded Date/ Time Name of Medical Power of Rewriter [facility] November 01, 2022 3:47pm Advance Directives Yes October 10:51am Living Will Yes November 01, 2 023 3:47pm Power of Rewriter Yes November 01, 2022 3:47pm Advance Directive Response Recorded Date/ Time Name of Medical Power of Rewriter REGIS BROUSSARD November 01, 2022 4:47pm Advance Directives Yes October 11:51am Living Will Yes November 01, 023 4:47pm Power of Rewriter Yes November 01, 2022 4:47pm Advance Directive Response Recorded Date/ Time Advance Directives Yes October 11:51am Living Will No March 13, 2023 1 0:28pm Power of Rewriter No March 13, 2023 10:28pm Advance Directive Response Recorded Date/ Time Living Will No March 13, 2023 1 0:28pm Power of Rewriter No March 13, 2023 10:28pm Living Will Yes November 19, 2024 2:23pm Power of Rewriter Yes November 19 2:23pm Name of Medical Power of Rewriter Ying Trinh November 19, 2024 2:23pm Advance Directives Yes October 11:51am Advance Directive Response Recorded Date/ Time Do you have a Healthcare Pow er of Rewriter? Yes January 26, 2025 4:27pm Living Will Yes November 19, 2024 2:23pm Do you have a Healthcare Pow er of Rewriter? Yes November 19, 2024 2:23pm Name of Medical Power of Rewriter Ying Trinh November 19, 2024 2:23pm Advance Directives Yes October 11:51am Date Activated Date Inactivated Comments 01/27/2025 6:59 AM 01/29/2025 7:09 PM Question Answer Comments Full Code Order Discussed With: Patient Advance Directive Response Recorded Date/ Time Do you have a Healthcare Pow er of Rewriter? Yes January 26, 2025 4:27pm Do you have a Healthcare Pow er of Rewriter? No February 07, 2025 3:54pm Living Will Yes November 19, 2024 2:23pm Do you have a Healthcare Pow er of Rewriter? Yes November 19, 2024 2:23pm Name of Medical Power of Rewriter Ying Trinh November 19, 2024 2:23pm Advance Directives Yes October 11:51am Advance Directive Response Recorded Date/ Time Do you have a Healthcare Pow er of Rewriter? Yes May 20th, 2025 4:27pm Do you have a Healthcare Pow er of Rewriter? No February 07, 2025 3:54pm Living Will Yes November 19, 2024 2:23pm Do you have a Healthcare Pow er of Rewriter? Yes November 19, 2024 2:23pm Name of Medical Power of Rewriter Ying Trinh November 19, 2024 2:23pm Do you have a Healthcare Pow er of Rewriter? No March 10, 2025 11:29am Advance Directives Yes October 11:51am Chief Complaint and Reason for Visit Chief Complaint general illness COVID PNEUMONIA COVID PNEUMONIA COVID PNEUMONIA COVID PNEUMONIA COVID PNEUMONIA CELLULITIS Reason for Visit Hyperglycemia Hyperkalemia Chief Complaint general illness COVID PNEUMONIA COVID PNEUMONIA COVID PNEUMONIA COVID PNEUMONIA COVID PNEUMONIA CELLULITIS WOUND/PVD MULTIPLE TOE ULCERS Reason for Visit Hyperglycemia Hyperkalemia Type 2 diabetes mellitus with diabetic polyneuropathy Non-pressure chronic ulcer of other part of left foot with fat layer exposed Non-pressure chronic ulcer of other part of right foot with fat layer exposed Chief Complaint CELLULITIS WOUND/PVD MULTIPLE TOE ULCERS 10 MO F/U WOUND/PVD MULTIPLE TOE ULCERS Reason for Visit Type 2 diabetes aggie itus with diabetic polyneuropathy Non-pressure chronic ulcer of other part of left foot with fat layer exposed Non-pressure chronic ulcer of other part of right foot with fat layer exposed Renal transplant recipient Atherosclerotic heart disease of [place] coronary artery without angina pectoris Essential hypertension HLD (hyperlipidemia) Type 2 diabetes mellitus with diabetic polyneuropathy Non-pressure chronic ulcer of other part of left foot with fat layer exposed Non-pressure chronic ulcer of other part of right foot with fat layer exposed Chief Complaint CELLULITIS WOUND/PVD MULTIPLE TOE ULCERS 10 MO F/U WOUND/PVD MULTIPLE TOE ULCERS WOUND/PVD MULTIPLE TOE ULCERS Reason for Visit Type 2 diabetes aggie itus with diabetic polyneuropathy Non-pressure chronic ulcer of other part of left foot with fat layer exposed Non-pressure chronic ulcer of other part of right foot with fat layer exposed Renal transplant recipient Atherosclerotic heart disease of [place] coronary artery without angina pectoris Essential hypertension HLD (hyperlipidemia) Type 2 diabetes mellitus with diabetic polyneuropathy Non-pressure chronic ulcer of other part of left foot with fat layer exposed Non-pressure chronic ulcer of other part of right foot with fat layer exposed Type 2 diabetes mellitus with diabetic polyneuropathy Non-pressure chronic ulcer of other part of left foot with fat layer exposed Other specified peripheral vascular diseases Chief Complaint CELLULITIS WOUND/PVD MULTIPLE TOE ULCERS 10 MO F/U WOUND/PVD MULTIPLE TOE ULCERS WOUND/PVD MULTIPLE TOE ULCERS WOUND/PVD MULTIPLE TOE ULCERS NEC FASC L DIABETIC FOOT WOUND Reason for Visit Type 2 diabetes aggie itus with diabetic polyneuropathy Non-pressure chronic ulcer of other part of left foot with fat layer exposed Non-pressure chronic ulcer of other part of right foot with fat layer exposed Renal transplant recipient Atherosclerotic heart disease of [place] coronary artery without angina pectoris Essential hypertension HLD (hyperlipidemia) Type 2 diabetes mellitus with diabetic polyneuropathy Non-pressure chronic ulcer of other part of left foot with fat layer exposed Non-pressure chronic ulcer of other part of right foot with fat layer exposed Type 2 diabetes mellitus with diabetic polyneuropathy Non-pressure chronic ulcer of other part of left foot with fat layer exposed Other specified peripheral vascular diseases Type 2 diabetes mellitus with diabetic polyneuropathy Non-pressure chronic ulcer of other part of left foot with fat layer exposed Other specified peripheral vascular diseases Acute hyperglycemia ILDA (acute kidney injury) Diabetic foot infection Necrotizing fasciitis Sepsis Chief Complaint CELLULITIS WOUND/PVD MULTIPLE TOE ULCERS 10 MO F/U WOUND/PVD MULTIPLE TOE ULCERS WOUND/PVD MULTIPLE TOE ULCERS WOUND/PVD MULTIPLE TOE ULCERS NEC FASC L DIABETIC FOOT WOUND NEC FASC L DIABETIC FOOT WOUND NEC FASC L DIABETIC FOOT WOUND NEC FASC L DIABETIC FOOT WOUND NEC FASC L DIABETIC FOOT WOUND NEC FASC L DIABETIC FOOT WOUND Reason for Visit Type 2 diabetes aggie itus with diabetic polyneuropathy Non-pressure chronic ulcer of other part of left foot with fat layer exposed Non-pressure chronic ulcer of other part of right foot with fat layer exposed Renal transplant recipient Atherosclerotic heart disease of [place] coronary artery without angina pectoris Essential hypertension HLD (hyperlipidemia) Type 2 diabetes mellitus with diabetic polyneuropathy Non-pressure chronic ulcer of other part of left foot with fat layer exposed Non-pressure chronic ulcer of other part of right foot with fat layer exposed Type 2 diabetes mellitus with diabetic polyneuropathy Non-pressure chronic ulcer of other part of left foot with fat layer exposed Other specified peripheral vascular diseases Type 2 diabetes mellitus with diabetic polyneuropathy Non-pressure chronic ulcer of other part of left foot with fat layer exposed Other specified peripheral vascular diseases Acute hyperglycemia ILDA (acute kidney injury) Bacteremia Cellulitis of left lower limb Diabetic foot infection Gas gangrene of foot Necrotizing fasciitis Renal transplant recipient Sepsis Type 2 diabetes mellitus with diabetic polyneuropathy Anxiety and depression Blind left eye Chronic renal failure, stage 5 Diabetes mellitus type II, uncontrolled Diabetic neuropathy Essential hypertension HLD (hyperlipidemia) Non-pressure chronic ulcer of other part of left foot with fat layer exposed Noncompliance Chief Complaint WOUND/PVD MULTIPLE T OE ULCERS 10 MO F/U WOUND/PVD MULTIPLE TOE ULCERS WOUND/PVD MULTIPLE TOE ULCERS NEC FASC L DIABETIC FOOT WOUND NEC FASC L DIABETIC FOOT WOUND NEC FASC L DIABETIC FOOT WOUND NEC FASC L DIABETIC FOOT WOUND NEC FASC L DIABETIC FOOT WOUND NEC FASC L DIABETIC FOOT WOUND WOUND/PVD MULTIPLE TOE ULCERS Reason for Visit Non-pressure chronic ulcer of other part of right foot with fat layer exposed Atherosclerotic heart disease of [place] coronary artery without angina pectoris Non-pressure chronic ulcer of other part of right foot with fat layer exposed Other specified peripheral vascular diseases Acute hyperglycemia ILDA (acute kidney injury) Bacteremia Sepsis 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 Other specified peripheral vascular diseases Bacteremia Sepsis Chief Complaint WOUND/PVD MULTIPLE T OE ULCERS 10 MO F/U WOUND/PVD MULTIPLE TOE ULCERS WOUND/PVD MULTIPLE TOE ULCERS NEC FASC L DIABETIC FOOT WOUND NEC FASC L DIABETIC FOOT WOUND NEC FASC L DIABETIC FOOT WOUND NEC FASC L DIABETIC FOOT WOUND NEC FASC L DIABETIC FOOT WOUND NEC FASC L DIABETIC FOOT WOUND WOUND/PVD MULTIPLE TOE ULCERS WOUND/PVD MULTIPLE TOE ULCERS Reason for Visit Non-pressure chronic ulcer of other part of right foot with fat layer exposed Atherosclerotic heart disease of [place] coronary artery without angina pectoris Non-pressure chronic ulcer of other part of right foot with fat layer exposed Other specified peripheral vascular diseases Acute hyperglycemia ILDA (acute kidney injury) Bacteremia Sepsis 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 Other specified peripheral vascular diseases Bacteremia Sepsis Chief Complaint 10 MO F/U WOUND/PVD MULTIPLE TOE ULCERS WOUND/PVD MULTIPLE TOE ULCERS NEC FASC L DIABETIC FOOT WOUND NEC FASC L DIABETIC FOOT WOUND NEC FASC L DIABETIC FOOT WOUND NEC FASC L DIABETIC FOOT WOUND NEC FASC L DIABETIC FOOT WOUND NEC FASC L DIABETIC FOOT WOUND WOUND/PVD MULTIPLE TOE ULCERS WOUND/PVD MULTIPLE TOE ULCERS Reason for Visit Atherosclerotic hear t disease of [place] coronary artery without angina pectoris Non-pressure chronic ulcer of other part of right foot with fat layer exposed Other specified peripheral vascular diseases Type 2 diabetes mellitus with diabetic polyneuropathy Acute hyperglycemia ILDA (acute kidney injury) Bacteremia Sepsis 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 Other specified peripheral vascular diseases Bacteremia Sepsis 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 Type 2 diabetes mellitus with diabetic polyneuropathy Chief Complaint WOUND/PVD MULTIPLE T OE ULCERS NEC FASC L DIABETIC FOOT WOUND NEC FASC L DIABETIC FOOT WOUND NEC FASC L DIABETIC FOOT WOUND NEC FASC L DIABETIC FOOT WOUND NEC FASC L DIABETIC FOOT WOUND NEC FASC L DIABETIC FOOT WOUND WOUND/PVD MULTIPLE TOE ULCERS WOUND/PVD MULTIPLE TOE ULCERS HBO WOUND/PVD MULTIPLE TOE ULCERS Reason for Visit Other specified [place] pheral vascular diseases Type 2 diabetes mellitus with diabetic polyneuropathy Acute hyperglycemia ILDA (acute kidney injury) Bacteremia Sepsis 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 Other specified peripheral vascular diseases Bacteremia Sepsis 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 Type 2 diabetes mellitus with diabetic polyneuropathy Chief Complaint WOUND/PVD MULTIPLE T OE ULCERS HBO HBO WOUND/PVD MULTIPLE TOE ULCERS WOUND/PVD MULTIPLE TOE ULCERS WOUND/PVD MULTIPLE TOE ULCERS WOUND/PVD MULTIPLE TOE ULCERS WOUND/PVD MULTIPLE TOE ULCERS WOUND/PVD MULTIPLE TOE ULCERS WOUND/PVD MULTIPLE TOE ULCERS WOUND/PVD MULTIPLE TOE ULCERS WOUND/PVD MULTIPLE TOE ULCERS WOUND/PVD MULTIPLE TOE ULCERS WOUND/PVD MULTIPLE TOE ULCERS WOUND/PVD MULTIPLE TOE ULCERS WOUND/PVD MULTIPLE TOE ULCERS WOUND/PVD MULTIPLE TOE ULCERS WOUND/PVD MULTIPLE TOE ULCERS WOUND/PVD MULTIPLE TOE ULCERS WOUND/PVD MULTIPLE TOE ULCERS WOUND/PVD MULTIPLE TOE ULCERS WOUND/PVD MULTIPLE TOE ULCERS WOUND/PVD MULTIPLE TOE ULCERS 6 M FU WOUND/PVD MULTIPLE TOE ULCERS WOUND/PVD MULTIPLE TOE ULCERS WOUND/PVD MULTIPLE TOE ULCERS HYPOGLYCEMIA Reason for Visit History of partial r ay amputation of fifth toe 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 Type 2 diabetes mellitus with diabetic polyneuropathy Diabetic foot ulcer 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 Diabetic foot ulcer [id number] 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 Type 2 diabetes mellitus with diabetic polyneuropathy Chief Complaint HBO HBO WOUND/PVD MULTIPLE TOE ULCERS WOUND/PVD MULTIPLE TOE ULCERS WOUND/PVD MULTIPLE TOE ULCERS WOUND/PVD MULTIPLE TOE ULCERS WOUND/PVD MULTIPLE TOE ULCERS WOUND/PVD MULTIPLE TOE ULCERS WOUND/PVD MULTIPLE TOE ULCERS WOUND/PVD MULTIPLE TOE ULCERS WOUND/PVD MULTIPLE TOE ULCERS WOUND/PVD MULTIPLE TOE ULCERS WOUND/PVD MULTIPLE TOE ULCERS WOUND/PVD MULTIPLE TOE ULCERS WOUND/PVD MULTIPLE TOE ULCERS WOUND/PVD MULTIPLE TOE ULCERS WOUND/PVD MULTIPLE TOE ULCERS WOUND/PVD MULTIPLE TOE ULCERS WOUND/PVD MULTIPLE TOE ULCERS WOUND/PVD MULTIPLE TOE ULCERS WOUND/PVD MULTIPLE TOE ULCERS WOUND/PVD MULTIPLE TOE ULCERS 6 M FU WOUND/PVD MULTIPLE TOE ULCERS WOUND/PVD MULTIPLE TOE ULCERS WOUND/PVD MULTIPLE TOE ULCERS HYPOGLYCEMIA WOUND/PVD MULTIPLE TOE ULCERS WOUND/PVD MULTIPLE TOE ULCERS Diabetes WOUND/PVD MULTIPLE TOE ULCERS Reason for Visit History of partial r ay amputation of fifth toe 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 Diabetic foot ulcer 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 Diabetic foot ulcer Obesity (BMI 30-39.9) Type 2 diabetes mellitus with diabetic polyneuropathy [id number] 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 Diabetic foot ulcer Type 2 diabetes mellitus with diabetic polyneuropathy Chief Complaint WOUND/PVD MULTIPLE T OE ULCERS WOUND/PVD MULTIPLE TOE ULCERS WOUND/PVD MULTIPLE TOE ULCERS WOUND/PVD MULTIPLE TOE ULCERS WOUND/PVD MULTIPLE TOE ULCERS WOUND/PVD MULTIPLE TOE ULCERS WOUND/PVD MULTIPLE TOE ULCERS WOUND/PVD MULTIPLE TOE ULCERS WOUND/PVD MULTIPLE TOE ULCERS WOUND/PVD MULTIPLE TOE ULCERS WOUND/PVD MULTIPLE TOE ULCERS WOUND/PVD MULTIPLE TOE ULCERS WOUND/PVD MULTIPLE TOE ULCERS WOUND/PVD MULTIPLE TOE ULCERS WOUND/PVD MULTIPLE TOE ULCERS WOUND/PVD MULTIPLE TOE ULCERS WOUND/PVD MULTIPLE TOE ULCERS WOUND/PVD MULTIPLE TOE ULCERS WOUND/PVD MULTIPLE TOE ULCERS 6 M FU WOUND/PVD MULTIPLE TOE ULCERS WOUND/PVD MULTIPLE TOE ULCERS WOUND/PVD MULTIPLE TOE ULCERS HYPOGLYCEMIA WOUND/PVD MULTIPLE TOE ULCERS WOUND/PVD MULTIPLE TOE ULCERS Diabetes WOUND/PVD MULTIPLE TOE ULCERS WOUND/PVD MULTIPLE TOE ULCERS WOUND/PVD MULTIPLE TOE ULCERS Reason for Visit History of partial r ay amputation of fifth toe 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 Diabetic foot ulcer 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 Diabetic foot ulcer Obesity (BMI 30-39.9) Type 2 diabetes mellitus with diabetic polyneuropathy [id number] 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 Diabetic foot ulcer Type 2 diabetes mellitus with diabetic polyneuropathy [id number] 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 Diabetic foot ulcer Type 2 diabetes mellitus with diabetic polyneuropathy Chief Complaint WOUND/PVD MULTIPLE T OE ULCERS WOUND/PVD MULTIPLE TOE ULCERS WOUND/PVD MULTIPLE TOE ULCERS WOUND/PVD MULTIPLE TOE ULCERS WOUND/PVD MULTIPLE TOE ULCERS WOUND/PVD MULTIPLE TOE ULCERS WOUND/PVD MULTIPLE TOE ULCERS WOUND/PVD MULTIPLE TOE ULCERS WOUND/PVD MULTIPLE TOE ULCERS WOUND/PVD MULTIPLE TOE ULCERS WOUND/PVD MULTIPLE TOE ULCERS WOUND/PVD MULTIPLE TOE ULCERS WOUND/PVD MULTIPLE TOE ULCERS WOUND/PVD MULTIPLE TOE ULCERS WOUND/PVD MULTIPLE TOE ULCERS WOUND/PVD MULTIPLE TOE ULCERS WOUND/PVD MULTIPLE TOE ULCERS WOUND/PVD MULTIPLE TOE ULCERS 6 M FU WOUND/PVD MULTIPLE TOE ULCERS WOUND/PVD MULTIPLE TOE ULCERS WOUND/PVD MULTIPLE TOE ULCERS HYPOGLYCEMIA WOUND/PVD MULTIPLE TOE ULCERS WOUND/PVD MULTIPLE TOE ULCERS Diabetes WOUND/PVD MULTIPLE TOE ULCERS WOUND/PVD MULTIPLE TOE ULCERS WOUND/PVD MULTIPLE TOE ULCERS 6 wk FU WOUND/PVD MULTIPLE TOE ULCERS wound Reason for Visit History of partial r ay amputation of fifth toe 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 Diabetic foot ulcer 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 Diabetic foot ulcer Obesity (BMI 30-39.9) Type 2 diabetes mellitus with diabetic polyneuropathy [id number] 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 Diabetic foot ulcer Type 2 diabetes mellitus with diabetic polyneuropathy [id number] 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 Diabetic foot ulcer Type 2 diabetes mellitus with diabetic polyneuropathy Diabetic foot ulcer Hypertension Obesity (BMI 30-39.9) 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 Diabetic foot ulcer Type 2 diabetes mellitus with diabetic polyneuropathy Abscess of left foot Cellulitis of foot, left Diabetic infection of left foot History of CAD (coronary artery disease) History of diastolic dysfunction Type 2 diabetes mellitus with diabetic polyneuropathy Type 2 diabetes mellitus with hyperglycemia Type 2 diabetes mellitus with left diabetic foot infection Anemia of chronic renal failure, stage 4 (severe) Atherosclerotic heart disease of [place] coronary artery without angina pectoris Chronic renal failure, stage 4 (severe) Diabetic nephropathy Non-pressure chronic ulcer of other part of left foot with necrosis of bone Other specified peripheral vascular diseases Chief Complaint WOUND/PVD MULTIPLE T OE ULCERS WOUND/PVD MULTIPLE TOE ULCERS WOUND/PVD MULTIPLE TOE ULCERS WOUND/PVD MULTIPLE TOE ULCERS WOUND/PVD MULTIPLE TOE ULCERS WOUND/PVD MULTIPLE TOE ULCERS WOUND/PVD MULTIPLE TOE ULCERS WOUND/PVD MULTIPLE TOE ULCERS WOUND/PVD MULTIPLE TOE ULCERS WOUND/PVD MULTIPLE TOE ULCERS WOUND/PVD MULTIPLE TOE ULCERS WOUND/PVD MULTIPLE TOE ULCERS WOUND/PVD MULTIPLE TOE ULCERS WOUND/PVD MULTIPLE TOE ULCERS WOUND/PVD MULTIPLE TOE ULCERS WOUND/PVD MULTIPLE TOE ULCERS WOUND/PVD MULTIPLE TOE ULCERS WOUND/PVD MULTIPLE TOE ULCERS 6 M FU WOUND/PVD MULTIPLE TOE ULCERS WOUND/PVD MULTIPLE TOE ULCERS WOUND/PVD MULTIPLE TOE ULCERS HYPOGLYCEMIA WOUND/PVD MULTIPLE TOE ULCERS WOUND/PVD MULTIPLE TOE ULCERS Diabetes WOUND/PVD MULTIPLE TOE ULCERS WOUND/PVD MULTIPLE TOE ULCERS WOUND/PVD MULTIPLE TOE ULCERS 6 wk FU WOUND/PVD MULTIPLE TOE ULCERS wound wound wound wound wound Reason for Visit History of partial r ay amputation of fifth toe 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 Diabetic foot ulcer Type 2 diabetes mellitus with diabetic polyneuropathy Renal transplant recipient Atherosclerotic heart disease of [place] coronary artery without angina pectoris Diabetic foot ulcer Obesity (BMI 30-39.9) Type 2 diabetes mellitus with diabetic polyneuropathy [id number] 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 Diabetic foot ulcer Type 2 diabetes mellitus with diabetic polyneuropathy [id number] 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 Diabetic foot ulcer Type 2 diabetes mellitus with diabetic polyneuropathy Diabetic foot ulcer Hypertension Obesity (BMI 30-39.9) 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 Diabetic foot ulcer Type 2 diabetes mellitus with diabetic polyneuropathy Abscess of left foot Cellulitis of foot, left Diabetic infection of left foot History of CAD (coronary artery disease) History of diastolic dysfunction History of transmetatarsal amputation of left foot Osteomyelitis of foot, left, acute Renal transplant recipient Type 2 diabetes mellitus with diabetic polyneuropathy Type 2 diabetes mellitus with hyperglycemia Type 2 diabetes mellitus with left diabetic foot infection Anemia of chronic renal failure, stage 4 (severe) Atherosclerotic heart disease of [place] coronary artery without angina pectoris Chronic renal failure, stage 4 (severe) Diabetic nephropathy Non-pressure chronic ulcer of other part of left foot with necrosis of bone Other specified peripheral vascular diseases Chief Complaint WOUND/PVD MULTIPLE T OE ULCERS 6 wk FU WOUND/PVD MULTIPLE TOE ULCERS wound wound PREOP wound wound wound E ORDER 2 M FU Reason for Visit [id number] 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 Diabetic foot ulcer Type 2 diabetes mellitus with diabetic polyneuropathy Diabetic foot ulcer Hypertension Obesity (BMI 30-39.9) 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 Diabetic foot ulcer Type 2 diabetes mellitus with diabetic polyneuropathy History of CAD (coronary artery disease) History of diastolic dysfunction History of transmetatarsal amputation of left foot Renal transplant recipient Type 2 diabetes mellitus with diabetic polyneuropathy Anemia of chronic renal failure, stage 4 (severe) Atherosclerotic heart disease of [place] coronary artery without angina pectoris Chronic renal failure, stage 4 (severe) Diabetic nephropathy Other specified peripheral vascular diseases Type 2 diabetes mellitus with hyperglycemia Abscess of left foot Cellulitis of foot, left Diabetic infection of left foot Non-pressure chronic ulcer of other part of left foot with necrosis of bone Osteomyelitis of foot, left, acute Type 2 diabetes mellitus with left diabetic foot infection Diabetic nephropathy Obesity (BMI 30-39.9) Type 2 diabetes mellitus with hyperglycemia Chief Complaint E ORDER 2 M FU 6 M FU hypoglycemia Reason for Visit Diabetic nephropathy Obesity (BMI 30-39.9) Type 2 diabetes mellitus with hyperglycemia Renal transplant recipient Atherosclerotic heart disease of [place] coronary artery without angina pectoris Chief Complaint 2 M FU 9 M FU 2.5 M FU E ORDERS Reason for Visit Obesity (BMI 30-39.9 ) Polyneuropathy Type 2 diabetes mellitus with diabetic polyneuropathy Renal transplant recipient Atherosclerotic heart disease of [place] coronary artery without angina pectoris Chronic renal failure, stage 4 (severe) Hypertension Obesity (BMI 30-39.9) Type 2 diabetes mellitus with hyperglycemia Chief Complaint 2 M FU 9 M FU 2.5 M FU E ORDERS ELEVATED LIVER ENZYMES Reason for Visit Obesity (BMI 30-39.9 ) Polyneuropathy Type 2 diabetes mellitus with diabetic polyneuropathy Renal transplant recipient Atherosclerotic heart disease of [place] coronary artery without angina pectoris Chronic renal failure, stage 4 (severe) Hypertension Obesity (BMI 30-39.9) Type 2 diabetes mellitus with hyperglycemia Chief Complaint Admit Date 3 M FU July 28, 2024 10:37am dizziness November 19, 2024 2:1 9pm Reason for Visit Admit Date Diabetic nephropathy July 28, 2024 10:37am Diabetic retinopathy July 28, 2024 10:37am Hypertension July 28, 2024 10:37am Overweight July 28, 2024 10:37am Type 2 diabetes mellitus with diabetic p olyneuropathy July 28, 2024 10:37am Chief Complaint Admit Date dizziness November 19, 2024 2:1 9pm hyperglycemia January 26, 2025 3:46p m Chief Complaint Admit Date dizziness November 19, 2024 2:1 9pm hyperglycemia January 26, 2025 3:46p m URINE BAG LEAKING February 07, 2025 1:09p m Chief Complaint Admit Date dizziness November 19, 2024 2:1 9pm hyperglycemia January 26, 2025 3:46p m URINE BAG LEAKING February 07, 2025 1:09p m INFECTION March 10, 2025 11:26 am Family History No Family History Records Found Relationship Condition Age at Onset Recorded Date/T pauline mother Cardiac disease Unknown Hypertension Unknown father Malignant neoplasm Unknown brother Malignant neoplasm Unknown Diabetes mellitus Unknown sister Diabetes mellitus Unknown Relationship Condition Age at Onset Recorded Date/T pauline Not Specified History of transfusion of whole blood Un known Alcohol abuse Unknown Depression Unknown Kidney disorder Unknown mother Cardiac disease Unknown Hypertension Unknown father Malignant neoplasm Unknown brother Malignant neoplasm Unknown Diabetes mellitus Unknown sister Diabetes mellitus Unknown Reason for Referral Specialty Diagnoses / Procedures Referred By Carloz t Referred To Contact Endocrinology Diagnoses Controlled type 2 diabetes mellitus without complication, without long-term current use of insulin (HCC) Procedures CONSULT TO ENDOCRINOLOGY OFFICE/OUTPATIENT [facility] 60-74 MINUTES Zaida Gaston MD [address] [place] [address] Referral ID Status Reason Start Date Expiration Date Visits Requested Visits Authorized [id number] Pending Review PCP Requested Referral 2 07/31/2023 1 1 Specialty Diagnoses / Procedures Referred By Contac t Referred To Contact Alana Kent APRN.[employer] [address] [place] [address] Referral ID Status Reason Start Date Expiration Date Visits Re quested Visits Authorized [id number] Closed 1 1 Specialty Diagnoses / Procedures Referred By Contac t Referred To Contact Urology Diagnoses Erectile dysfunction, unspecified erectile dysfunction type Procedures CONSULT TO UROLOGY OFFICE/OUTPATIENT [facility] MDM 60-74 MINUTES Alana Kent APRN.[employer]IST [address] [place] [address] Referral ID Status Reason Start Date Expiration Date Visits Requested Visits Authorized [id number] Authorized PCP Requested Referral 07/15/2023 07/14/2024 1 1 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) Colon cancer screening Type 1 diabetes mellitus on insulin therapy (HCC) Kidney transplant recipient Procedures CONSULT TO GENERAL SURGERY OFFICE/OUTPATIENT [facility] MDM 60 MINUTES 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 APRN.[employer]IST [address] [place] [address] Referral ID Status Reason Start Date Expiration Date Visits Requested Visits Authorized [id number] Authorized PCP Requested Referral 01/22/2024 01/21/2025 1 1 Summary Purpose Additional Source Comments Source Comments (unrecognize d section and content) In the event this informatio n is protected by the Federal Confidentiality of Alcohol and Drug Abuse Patient Records regulations: The Federal rules restrict any use of the information to criminally investigate or prosecute any alcohol or drug abuse patient.[facility]In the event this information is protected by the Federal Confidentiality of Alcohol and Drug Abuse Patient Records regulations: The Federal rules restrict any use of the information to criminally investigate or prosecute any alcohol or drug abuse patient.[facility] HospitalIn the event this information is protected by the Federal Confidentiality of Alcohol and Drug Abuse Patient Records regulations: The Federal rules restrict any use of the information to criminally investigate or prosecute any alcohol or drug abuse patient.[facility] HospitalIn the event this information is protected by the Federal Confidentiality of Alcohol and Drug Abuse Patient Records regulations: The Federal rules restrict any use of the information to criminally investigate or prosecute any alcohol or drug abuse patient.[facility] HospitalIn the event this information is protected by the Federal Confidentiality of Alcohol and Drug Abuse Patient Records regulations: The Federal rules restrict any use of the information to criminally investigate or prosecute any alcohol or drug abuse patient.[facility] HospitalIn the event this information is protected by the Federal Confidentiality of Alcohol and Drug Abuse Patient Records regulations: The Federal rules restrict any use of the information to criminally investigate or prosecute any alcohol or drug abuse patient.[facility] HospitalIn the event this information is protected by the Federal Confidentiality of Alcohol and Drug Abuse Patient Records regulations: The Federal rules restrict any use of the information to criminally investigate or prosecute any alcohol or drug abuse patient.[facility] HospitalIn the event this information is protected by the Federal Confidentiality of Alcohol and Drug Abuse Patient Records regulations: The Federal rules restrict any use of the information to criminally investigate or prosecute any alcohol or drug abuse patient.[facility] HospitalIn the event this information is protected by the Federal Confidentiality of Alcohol and Drug Abuse Patient Records regulations: The Federal rules restrict any use of the information to criminally investigate or prosecute any alcohol or drug abuse patient.[facility] HospitalIn the event this information is protected by the Federal Confidentiality of Alcohol and Drug Abuse Patient Records regulations: The Federal rules restrict any use of the information to criminally investigate or prosecute any alcohol or drug abuse patient.[facility] HospitalIn the event this information is protected by the Federal Confidentiality of Alcohol and Drug Abuse Patient Records regulations: The Federal rules restrict any use of the information to criminally investigate or prosecute any alcohol or drug abuse patient.[facility] HospitalIn the event this information is protected by the Federal Confidentiality of Alcohol and Drug Abuse Patient Records regulations: The Federal rules restrict any use of the information to criminally investigate or prosecute any alcohol or drug abuse patient.[facility] HospitalIn the event this information is protected by the Federal Confidentiality of Alcohol and Drug Abuse Patient Records regulations: The Federal rules restrict any use of the information to criminally investigate or prosecute any alcohol or drug abuse patient.[facility] HospitalIn the event this information is protected by the Federal Confidentiality of Alcohol and Drug Abuse Patient Records regulations: The Federal rules restrict any use of the information to criminally investigate or prosecute any alcohol or drug abuse patient.[facility] HospitalIn the event this information is protected by the Federal Confidentiality of Alcohol and Drug Abuse Patient Records regulations: The Federal rules restrict any use of the information to criminally investigate or prosecute any alcohol or drug abuse patient.[facility] HospitalIn the event this information is protected by the Federal Confidentiality of Alcohol and Drug Abuse Patient Records regulations: The Federal rules restrict any use of the information to criminally investigate or prosecute any alcohol or drug abuse patient.[facility] HospitalIn the event this information is protected by the Federal Confidentiality of Alcohol and Drug Abuse Patient Records regulations: The Federal rules restrict any use of the information to criminally investigate or prosecute any alcohol or drug abuse patient.[facility] HospitalIn the event this information is protected by the Federal Confidentiality of Alcohol and Drug Abuse Patient Records regulations: The Federal rules restrict any use of the information to criminally investigate or prosecute any alcohol or drug abuse patient.[facility] HospitalIn the event this information is protected by the Federal Confidentiality of Alcohol and Drug Abuse Patient Records regulations: The Federal rules restrict any use of the information to criminally investigate or prosecute any alcohol or drug abuse patient.[facility] HospitalIn the event this information is protected by the Federal Confidentiality of Alcohol and Drug Abuse Patient Records regulations: The Federal rules restrict any use of the information to criminally investigate or prosecute any alcohol or drug abuse patient.[facility]In the event this information is protected by the Federal Confidentiality of Alcohol and Drug Abuse Patient Records regulations: The Federal rules restrict any use of the information to criminally investigate or prosecute any alcohol or drug abuse patient.[facility] HospitalIn the event this information is protected by the Federal Confidentiality of Alcohol and Drug Abuse Patient Records regulations: The Federal rules restrict any use of the information to criminally investigate or prosecute any alcohol or drug abuse patient.[facility] HospitalIn the event this information is protected by the Federal Confidentiality of Alcohol and Drug Abuse Patient Records regulations: The Federal rules restrict any use of the information to criminally investigate or prosecute any alcohol or drug abuse patient.[facility] HospitalIn the event this information is protected by the Federal Confidentiality of Alcohol and Drug Abuse Patient Records regulations: The Federal rules restrict any use of the information to criminally investigate or prosecute any alcohol or drug abuse patient.[facility] HospitalIn the event this information is protected by the Federal Confidentiality of Alcohol and Drug Abuse Patient Records regulations: The Federal rules restrict any use of the information to criminally investigate or prosecute any alcohol or drug abuse patient.[facility] HospitalIn the event this information is protected by the Federal Confidentiality of Alcohol and Drug Abuse Patient Records regulations: The Federal rules restrict any use of the information to criminally investigate or prosecute any alcohol or drug abuse patient.[facility] HospitalIn the event this information is protected by the Federal Confidentiality of Alcohol and Drug Abuse Patient Records regulations: The Federal rules restrict any use of the information to criminally investigate or prosecute any alcohol or drug abuse patient.[facility] HospitalIn the event this information is protected by the Federal Confidentiality of Alcohol and Drug Abuse Patient Records regulations: The Federal rules restrict any use of the information to criminally investigate or prosecute any alcohol or drug abuse patient.[facility] HospitalIn the event this information is protected by the Federal Confidentiality of Alcohol and Drug Abuse Patient Records regulations: The Federal rules restrict any use of the information to criminally investigate or prosecute any alcohol or drug abuse patient.[facility] HospitalIn the event this information is protected by the Federal Confidentiality of Alcohol and Drug Abuse Patient Records regulations: The Federal rules restrict any use of the information to criminally investigate or prosecute any alcohol or drug abuse patient.[facility] HospitalIn the event this information is protected by the Federal Confidentiality of Alcohol and Drug Abuse Patient Records regulations: The Federal rules restrict any use of the information to criminally investigate or prosecute any alcohol or drug abuse patient.[facility] HospitalIn the event this information is protected by the Federal Confidentiality of Alcohol and Drug Abuse Patient Records regulations: The Federal rules restrict any use of the information to criminally investigate or prosecute any alcohol or drug abuse patient.[facility] HospitalIn the event this information is protected by the Federal Confidentiality of Alcohol and Drug Abuse Patient Records regulations: The Federal rules restrict any use of the information to criminally investigate or prosecute any alcohol or drug abuse patient.[facility] HospitalIn the event this information is protected by the Federal Confidentiality of Alcohol and Drug Abuse Patient Records regulations: The Federal rules restrict any use of the information to criminally investigate or prosecute any alcohol or drug abuse patient.[facility] HospitalIn the event this information is protected by the Federal Confidentiality of Alcohol and Drug Abuse Patient Records regulations: The Federal rules restrict any use of the information to criminally investigate or prosecute any alcohol or drug abuse patient.[facility] HospitalIn the event this information is protected by the Federal Confidentiality of Alcohol and Drug Abuse Patient Records regulations: The Federal rules restrict any use of the information to criminally investigate or prosecute any alcohol or drug abuse patient.[facility] HospitalIn the event this information is protected by the Federal Confidentiality of Alcohol and Drug Abuse Patient Records regulations: The Federal rules restrict any use of the information to criminally investigate or prosecute any alcohol or drug abuse patient.[facility] HospitalIn the event this information is protected by the Federal Confidentiality of Alcohol and Drug Abuse Patient Records regulations: The Federal rules restrict any use of the information to criminally investigate or prosecute any alcohol or drug abuse patient.[facility] HospitalIn the event this information is protected by the Federal Confidentiality of Alcohol and Drug Abuse Patient Records regulations: The Federal rules restrict any use of the information to criminally investigate or prosecute any alcohol or drug abuse patient.[facility] HospitalIn the event this information is protected by the Federal Confidentiality of Alcohol and Drug Abuse Patient Records regulations: The Federal rules restrict any use of the information to criminally investigate or prosecute any alcohol or drug abuse patient.[facility] HospitalIn the event this information is protected by the Federal Confidentiality of Alcohol and Drug Abuse Patient Records regulations: The Federal rules restrict any use of the information to criminally investigate or prosecute any alcohol or drug abuse patient.[facility] HospitalIn the event this information is protected by the Federal Confidentiality of Alcohol and Drug Abuse Patient Records regulations: The Federal rules restrict any use of the information to criminally investigate or prosecute any alcohol or drug abuse patient.[facility] HospitalIn the event this information is protected by the Federal Confidentiality of Alcohol and Drug Abuse Patient Records regulations: The Federal rules restrict any use of the information to criminally investigate or prosecute any alcohol or drug abuse patient.[facility] HospitalIn the event this information is protected by the Federal Confidentiality of Alcohol and Drug Abuse Patient Records regulations: The Federal rules restrict any use of the information to criminally investigate or prosecute any alcohol or drug abuse patient.[facility] HospitalIn the event this information is protected by the Federal Confidentiality of Alcohol and Drug Abuse Patient Records regulations: The Federal rules restrict any use of the information to criminally investigate or prosecute any alcohol or drug abuse patient.[facility] HospitalIn the event this information is protected by the Federal Confidentiality of Alcohol and Drug Abuse Patient Records regulations: The Federal rules restrict any use of the information to criminally investigate or prosecute any alcohol or drug abuse patient.[facility] HospitalIn the event this information is protected by the Federal Confidentiality of Alcohol and Drug Abuse Patient Records regulations: The Federal rules restrict any use of the information to criminally investigate or prosecute any alcohol or drug abuse patient.[facility] HospitalIn the event this information is protected by the Federal Confidentiality of Alcohol and Drug Abuse Patient Records regulations: The Federal rules restrict any use of the information to criminally investigate or prosecute any alcohol or drug abuse patient.[facility] HospitalIn the event this information is protected by the Federal Confidentiality of Alcohol and Drug Abuse Patient Records regulations: The Federal rules restrict any use of the information to criminally investigate or prosecute any alcohol or drug abuse patient.[facility] HospitalIn the event this information is protected by the Federal Confidentiality of Alcohol and Drug Abuse Patient Records regulations: The Federal rules restrict any use of the information to criminally investigate or prosecute any alcohol or drug abuse patient.[facility] HospitalIn the event this information is protected by the Federal Confidentiality of Alcohol and Drug Abuse Patient Records regulations: The Federal rules restrict any use of the information to criminally investigate or prosecute any alcohol or drug abuse patient.[facility] HospitalIn the event this information is protected by the Federal Confidentiality of Alcohol and Drug Abuse Patient Records regulations: The Federal rules restrict any use of the information to criminally investigate or prosecute any alcohol or drug abuse patient.[facility] HospitalIn the event this information is protected by the Federal Confidentiality of Alcohol and Drug Abuse Patient Records regulations: The Federal rules restrict any use of the information to criminally investigate or prosecute any alcohol or drug abuse patient.[facility] HospitalIn the event this information is protected by the Federal Confidentiality of Alcohol and Drug Abuse Patient Records regulations: The Federal rules restrict any use of the information to criminally investigate or prosecute any alcohol or drug abuse patient.[facility] HospitalIn the event this information is protected by the Federal Confidentiality of Alcohol and Drug Abuse Patient Records regulations: The Federal rules restrict any use of the information to criminally investigate or prosecute any alcohol or drug abuse patient.[facility] HospitalIn the event this information is protected by the Federal Confidentiality of Alcohol and Drug Abuse Patient Records regulations: The Federal rules restrict any use of the information to criminally investigate or prosecute any alcohol or drug abuse patient.[facility] HospitalIn the event this information is protected by the Federal Confidentiality of Alcohol and Drug Abuse Patient Records regulations: The Federal rules restrict any use of the information to criminally investigate or prosecute any alcohol or drug abuse patient.[facility] HospitalIn the event this information is protected by the Federal Confidentiality of Alcohol and Drug Abuse Patient Records regulations: The Federal rules restrict any use of the information to criminally investigate or prosecute any alcohol or drug abuse patient.[facility] HospitalIn the event this information is protected by the Federal Confidentiality of Alcohol and Drug Abuse Patient Records regulations: The Federal rules restrict any use of the information to criminally investigate or prosecute any alcohol or drug abuse patient.[facility] HospitalIn the event this information is protected by the Federal Confidentiality of Alcohol and Drug Abuse Patient Records regulations: The Federal rules restrict any use of the information to criminally investigate or prosecute any alcohol or drug abuse patient.[facility] HospitalIn the event this information is protected by the Federal Confidentiality of Alcohol and Drug Abuse Patient Records regulations: The Federal rules restrict any use of the information to criminally investigate or prosecute any alcohol or drug abuse patient.[facility] HospitalIn the event this information is protected by the Federal Confidentiality of Alcohol and Drug Abuse Patient Records regulations: The Federal rules restrict any use of the information to criminally investigate or prosecute any alcohol or drug abuse patient.[facility] HospitalIn the event this information is protected by the Federal Confidentiality of Alcohol and Drug Abuse Patient Records regulations: The Federal rules restrict any use of the information to criminally investigate or prosecute any alcohol or drug abuse patient.[facility] HospitalIn the event this information is protected by the Federal Confidentiality of Alcohol and Drug Abuse Patient Records regulations: The Federal rules restrict any use of the information to criminally investigate or prosecute any alcohol or drug abuse patient.[facility] HospitalIn the event this information is protected by the Federal Confidentiality of Alcohol and Drug Abuse Patient Records regulations: The Federal rules restrict any use of the information to criminally investigate or prosecute any alcohol or drug abuse patient.[facility] HospitalIn the event this information is protected by the Federal Confidentiality of Alcohol and Drug Abuse Patient Records regulations: The Federal rules restrict any use of the information to criminally investigate or prosecute any alcohol or drug abuse patient.[facility] HospitalIn the event this information is protected by the Federal Confidentiality of Alcohol and Drug Abuse Patient Records regulations: The Federal rules restrict any use of the information to criminally investigate or prosecute any alcohol or drug abuse patient.[facility] HospitalIn the event this information is protected by the Federal Confidentiality of Alcohol and Drug Abuse Patient Records regulations: The Federal rules restrict any use of the information to criminally investigate or prosecute any alcohol or drug abuse patient.[facility] HospitalIn the event this information is protected by the Federal Confidentiality of Alcohol and Drug Abuse Patient Records regulations: The Federal rules restrict any use of the information to criminally investigate or prosecute any alcohol or drug abuse patient.[facility] HospitalIn the event this information is protected by the Federal Confidentiality of Alcohol and Drug Abuse Patient Records regulations: The Federal rules restrict any use of the information to criminally investigate or prosecute any alcohol or drug abuse patient.[facility]In the event this information is protected by the Federal Confidentiality of Alcohol and Drug Abuse Patient Records regulations: The Federal rules restrict any use of the information to criminally investigate or prosecute any alcohol or drug abuse patient.[facility] HospitalIn the event this information is protected by the Federal Confidentiality of Alcohol and Drug Abuse Patient Records regulations: The Federal rules restrict any use of the information to criminally investigate or prosecute any alcohol or drug abuse patient.[facility] HospitalIn the event this information is protected by the Federal Confidentiality of Alcohol and Drug Abuse Patient Records regulations: The Federal rules restrict any use of the information to criminally investigate or prosecute any alcohol or drug abuse patient.[facility] HospitalIn the event this information is protected by the Federal Confidentiality of Alcohol and Drug Abuse Patient Records regulations: The Federal rules restrict any use of the information to criminally investigate or prosecute any alcohol or drug abuse patient.[facility] HospitalIn the event this information is protected by the Federal Confidentiality of Alcohol and Drug Abuse Patient Records regulations: The Federal rules restrict any use of the information to criminally investigate or prosecute any alcohol or drug abuse patient.[facility] HospitalIn the event this information is protected by the Federal Confidentiality of Alcohol and Drug Abuse Patient Records regulations: The Federal rules restrict any use of the information to criminally investigate or prosecute any alcohol or drug abuse patient.[facility] HospitalIn the event this information is protected by the Federal Confidentiality of Alcohol and Drug Abuse Patient Records regulations: The Federal rules restrict any use of the information to criminally investigate or prosecute any alcohol or drug abuse patient.[facility] HospitalIn the event this information is protected by the Federal Confidentiality of Alcohol and Drug Abuse Patient Records regulations: The Federal rules restrict any use of the information to criminally investigate or prosecute any alcohol or drug abuse patient.[facility] HospitalIn the event this information is protected by the Federal Confidentiality of Alcohol and Drug Abuse Patient Records regulations: The Federal rules restrict any use of the information to criminally investigate or prosecute any alcohol or drug abuse patient.[facility] HospitalIn the event this information is protected by the Federal Confidentiality of Alcohol and Drug Abuse Patient Records regulations: The Federal rules restrict any use of the information to criminally investigate or prosecute any alcohol or drug abuse patient.[facility] HospitalIn the event this information is protected by the Federal Confidentiality of Alcohol and Drug Abuse Patient Records regulations: The Federal rules restrict any use of the information to criminally investigate or prosecute any alcohol or drug abuse patient.[facility] HospitalIn the event this information is protected by the Federal Confidentiality of Alcohol and Drug Abuse Patient Records regulations: The Federal rules restrict any use of the information to criminally investigate or prosecute any alcohol or drug abuse patient.[facility] HospitalIn the event this information is protected by the Federal Confidentiality of Alcohol and Drug Abuse Patient Records regulations: The Federal rules restrict any use of the information to criminally investigate or prosecute any alcohol or drug abuse patient.[facility] HospitalIn the event this information is protected by the Federal Confidentiality of Alcohol and Drug Abuse Patient Records regulations: The Federal rules restrict any use of the information to criminally investigate or prosecute any alcohol or drug abuse patient.[facility] HospitalIn the event this information is protected by the Federal Confidentiality of Alcohol and Drug Abuse Patient Records regulations: The Federal rules restrict any use of the information to criminally investigate or prosecute any alcohol or drug abuse patient.[facility] HospitalIn the event this information is protected by the Federal Confidentiality of Alcohol and Drug Abuse Patient Records regulations: The Federal rules restrict any use of the information to criminally investigate or prosecute any alcohol or drug abuse patient.[facility] HospitalIn the event this information is protected by the Federal Confidentiality of Alcohol and Drug Abuse Patient Records regulations: The Federal rules restrict any use of the information to criminally investigate or prosecute any alcohol or drug abuse patient.[facility] HospitalIn the event this information is protected by the Federal Confidentiality of Alcohol and Drug Abuse Patient Records regulations: The Federal rules restrict any use of the information to criminally investigate or prosecute any alcohol or drug abuse patient.[facility] HospitalIn the event this information is protected by the Federal Confidentiality of Alcohol and Drug Abuse Patient Records regulations: The Federal rules restrict any use of the information to criminally investigate or prosecute any alcohol or drug abuse patient.[facility] HospitalIn the event this information is protected by the Federal Confidentiality of Alcohol and Drug Abuse Patient Records regulations: The Federal rules restrict any use of the information to criminally investigate or prosecute any alcohol or drug abuse patient.[facility] HospitalIn the event this information is protected by the Federal Confidentiality of Alcohol and Drug Abuse Patient Records regulations: The Federal rules restrict any use of the information to criminally investigate or prosecute any alcohol or drug abuse patient.[facility] HospitalIn the event this information is protected by the Federal Confidentiality of Alcohol and Drug Abuse Patient Records regulations: The Federal rules restrict any use of the information to criminally investigate or prosecute any alcohol or drug abuse patient.[facility] HospitalIn the event this information is protected by the Federal Confidentiality of Alcohol and Drug Abuse Patient Records regulations: The Federal rules restrict any use of the information to criminally investigate or prosecute any alcohol or drug abuse patient.[facility] HospitalIn the event this information is protected by the Federal Confidentiality of Alcohol and Drug Abuse Patient Records regulations: The Federal rules restrict any use of the information to criminally investigate or prosecute any alcohol or drug abuse patient.[facility] HospitalIn the event this information is protected by the Federal Confidentiality of Alcohol and Drug Abuse Patient Records regulations: The Federal rules restrict any use of the information to criminally investigate or prosecute any alcohol or drug abuse patient.[facility] HospitalIn the event this information is protected by the Federal Confidentiality of Alcohol and Drug Abuse Patient Records regulations: The Federal rules restrict any use of the information to criminally investigate or prosecute any alcohol or drug abuse patient.[facility] HospitalIn the event this information is protected by the Federal Confidentiality of Alcohol and Drug Abuse Patient Records regulations: The Federal rules restrict any use of the information to criminally investigate or prosecute any alcohol or drug abuse patient.[facility] HospitalIn the event this information is protected by the Federal Confidentiality of Alcohol and Drug Abuse Patient Records regulations: The Federal rules restrict any use of the information to criminally investigate or prosecute any alcohol or drug abuse patient.[facility] HospitalIn the event this information is protected by the Federal Confidentiality of Alcohol and Drug Abuse Patient Records regulations: The Federal rules restrict any use of the information to criminally investigate or prosecute any alcohol or drug abuse patient.[facility] HospitalIn the event this information is protected by the Federal Confidentiality of Alcohol and Drug Abuse Patient Records regulations: The Federal rules restrict any use of the information to criminally investigate or prosecute any alcohol or drug abuse patient.[facility] HospitalIn the event this information is protected by the Federal Confidentiality of Alcohol and Drug Abuse Patient Records regulations: The Federal rules restrict any use of the information to criminally investigate or prosecute any alcohol or drug abuse patient.[facility] HospitalIn the event this information is protected by the Federal Confidentiality of Alcohol and Drug Abuse Patient Records regulations: The Federal rules restrict any use of the information to criminally investigate or prosecute any alcohol or drug abuse patient.[facility] HospitalIn the event this information is protected by the Federal Confidentiality of Alcohol and Drug Abuse Patient Records regulations: The Federal rules restrict any use of the information to criminally investigate or prosecute any alcohol or drug abuse patient.[facility] HospitalIn the event this information is protected by the Federal Confidentiality of Alcohol and Drug Abuse Patient Records regulations: The Federal rules restrict any use of the information to criminally investigate or prosecute any alcohol or drug abuse patient.[facility] HospitalIn the event this information is protected by the Federal Confidentiality of Alcohol and Drug Abuse Patient Records regulations: The Federal rules restrict any use of the information to criminally investigate or prosecute any alcohol or drug abuse patient.[facility] HospitalIn the event this information is protected by the Federal Confidentiality of Alcohol and Drug Abuse Patient Records regulations: The Federal rules restrict any use of the information to criminally investigate or prosecute any alcohol or drug abuse patient.[facility] HospitalIn the event this information is protected by the Federal Confidentiality of Alcohol and Drug Abuse Patient Records regulations: The Federal rules restrict any use of the information to criminally investigate or prosecute any alcohol or drug abuse patient.[facility] Reason for Visit (unrecogniz ed section and content) Reason Comments Renal Txp Follow Up Reason Comments Research IRB# [id number] Reason Comments Refill Request Reason Comments Refill Request Medication Dosage Adjustment High Envars us 14.2 Reason Comments Electronic Communication Reason Comments Home Health Orders Reason Comments Rx Refills Reason Comments Patient Update FYI-No Action Needed Reason Comments Established Patient [facility] left foot 5 th d igit removed Reason Onset Date Comments Refill Request 04/25/2022 Reason Onset Date Comments Refill Request 05/13/2022 Reason Onset Date Comments F/U Diabetes 3 Month Immunizations 07/13/2022 Flu vaccination Reason Onset Date Comments Refill Request 07/19/2022 Reason Comments [facility] requesting lab results Reason Comments Release Of Medical Records Reason Comments Patient Update Reason Comments Forms CGM order Reason Comments Diabetes Reason Comments Follow Up Reason Comments Renal Txp Follow Up Reason Onset Date Comments Refill Request 11/21/2022 Reason Comments Recheck 3 month follow up Reason Comments Results Reason Comments Preparations For Procedures Reason Comments F/U Diabetes 3 Month diabetes Reason Onset Date Comments Refill Request 04/03/2023 Reason Comments F/U 3 Month Reason Onset Date Comments Refill Request 07/01/2023 changing to new pharmacy Reason Comments Erectile Dysfunction Consult Specialty Diagnoses / Procedures Referred By Contac t Referred To Contact Urology Diagnoses Erectile dysfunction, unspecified erectile dysfunction type Procedures CONSULT TO UROLOGY OFFICE/OUTPATIENT [facility] MDM 60-74 MINUTES Alana Kent, BARREL DRAINER.WORKFORCE DEVELOPMENT SPECIALIST [address] [place] [address] Referral ID Status Reason Start Date Expiration Date V isits Requested Visits Authorized [id number] Closed PCP Requested Referral 07/15/2023 07/14/2024 1 1 Reason Comments penile injection Sexual Problem Reason Comments CGM forms Reason Comments Recheck 3 month DM follow up Reason Onset Date Comments Refill Request 10/11/2023 Reason Onset Date Comments Refill Request 10/14/2023 Reason Comments Orders Reason Onset Date Comments Refill Request 10/29/2023 Reason Comments Diarrhea Reason Comments Same Day Appointment diarrhea x 3 weeks after eating food Reason Comments Rx Refills TAC level 2.8 Reason Onset Date Comments Refill Request 12/13/2023 Reason Comments Insurance Authorization Reason Comments Recheck 3 month follow up Reason Comments Fax Request Reason Comments Recheck 6 week follow up Reason Comments Consult Colonoscopy consulta tion. 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) Colon cancer screening Type 1 diabetes mellitus on insulin therapy (HCC) Kidney transplant recipient Procedures CONSULT TO GENERAL SURGERY OFFICE/OUTPATIENT [facility] MDM 60 MINUTES 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 BARREL DRAINER.WORKFORCE DEVELOPMENT SPECIALIST [address] [place] [address] Referral ID Status Reason Start Date Expiration Date V isits Requested Visits Authorized [id number] Closed PCP Requested Referral 01/22/2024 01/21/2025 1 1 Reason Comments Medication Problem Reason Comments Patient Update Request for new Dexcom Reason Comments Recheck Reason Onset Date Comments Population Health Navigation Outreach 07/13/[address] [facility] [place] PCSA Reason Onset Date Comments Refill Request 07/13/2024 Reason Onset Date Comments Refill Request 07/31/2024 Reason Onset Date Comments Population Health Navigation Outreach 09/08/[address] [facility] WORKBENCJacques CESAR PCSA Reason Comments Transition Of Care Reason Comments ER F/U [facility] 01/27/25-01/31/25 oliguric acute kidney injury and flank pain Reason Comments Missed Appointment Primary care resched ule Reason Comments IR Outpatient Tube Appointment Request Care Teams (unrecognized sec tion and content) Glaze Mixer Relationship Specialty Start Date End Date Zaida Gaston MD [address] [place] [address] PCP - General Internal Medicine 04/26/16 Loida Montiel I, DO [address] [place] [address] Specialty Commercial Construction Superintendent Nephrology 06/11/18 Heena Adams [address] [facility] [address] [place] [address] Specialty Commercial Construction Superintendent Endocrinology 06/11/18 Satish Phan MD [address] [place] [address] Specialty Commercial Construction Superintendent General Surgery 07/25/18 Glaze Mixer Relationship Specialty Start Date End Date Zaida Gaston MD [address] [place] [address] PCP - General Internal Medicine 04/26/16 Loida Montiel I, DO [address] [place] [address] Specialty Commercial Construction Superintendent Nephrology 06/11/18 Heena Adams [address] [facility] [address] [place] [address] Specialty Commercial Construction Superintendent Endocrinology 06/11/18 Satish Phan MD [address] [place] [address] Specialty Commercial Construction Superintendent General Surgery 07/25/18 Glaze Mixer Relationship Specialty Start Date End Date Zaida Gaston MD [address] [place] [address] PCP - General Internal Medicine 04/26/16 Loida Montiel I, DO [address] [facility] [address] [place] [address] Specialty Commercial Construction Superintendent Nephrology 06/11/18 Heena Adams [address] [facility] [address] [place] [address] Specialty Commercial Construction Superintendent Endocrinology 06/11/18 Satish Phan MD [address] [place] [address] Specialty Commercial Construction Superintendent General Surgery 07/25/18 Glaze Mixer Relationship Specialty Start Date End Date Zaida Gaston MD [address] [place] [address] PCP - General Internal Medicine 04/26/16 Loida Montiel I, DO [address] [facility] [facility] [address] [place] [address] Specialty Commercial Construction Superintendent Nephrology 06/11/18 Heena Adams [address] [facility] [address] [place] [address] Specialty Commercial Construction Superintendent Endocrinology 06/11/18 Satish Phan MD [address] [place] [address] Specialty Commercial Construction Superintendent General Surgery 07/25/18 Glaze Mixer Relationship Specialty Start Date End Date Zaida Gaston MD [address] [place] [address] PCP - General Internal Medicine 04/26/16 Loida Montiel I, DO [address] [place] [address] Specialty Commercial Construction Superintendent Nephrology 06/11/18 Heena Adams [address] [facility] [address] [place] [address] Specialty Commercial Construction Superintendent Endocrinology 06/11/18 Satish Phan MD [address] [place] [address] Specialty Commercial Construction Superintendent General Surgery 07/25/18 Glaze Mixer Relationship Specialty Start Date End Date Zaida Gaston MD [address] [place] [address] PCP - General Internal Medicine 04/26/16 Loida Montiel I, DO [address] [facility] [facility] [address] [place] [address] Specialty Commercial Construction Superintendent Nephrology 06/11/18 Heena Adams [address] [facility] [address] [place] [address] Specialty Commercial Construction Superintendent Endocrinology 06/11/18 Satish Phan MD [address] [place] [address] Specialty Commercial Construction Superintendent General Surgery 07/25/18 Glaze Mixer Relationship Specialty Start Date End Date Zaida Gaston MD [address] [place] [address] PCP - General Internal Medicine 04/26/16 Loida Montiel I, DO [address] [place] [address] Specialty Commercial Construction Superintendent Nephrology 06/11/18 Heena Adams [address] [facility] [address] [place] [address] Specialty Commercial Construction Superintendent Endocrinology 06/11/18 Satish Phan MD [address] [place] [address] Specialty Commercial Construction Superintendent General Surgery 07/25/18 Glaze Mixer Relationship Specialty Start Date End Date Zaida Gaston MD [address] [place] [address] PCP - General Internal Medicine 04/26/16 Loida Montiel I, DO [address] [facility] [address] [place] [address] Specialty Commercial Construction Superintendent Nephrology 06/11/18 Heena Adams [address] [facility] [address] [place] [address] Specialty Commercial Construction Superintendent Endocrinology 06/11/18 Satish Phan MD [address] [facility] [place] [address] Specialty Commercial Construction Superintendent General Surgery 07/25/18 Glaze Mixer Relationship Specialty Start Date End Date Zaida Gaston MD [address] [place] [address] PCP - General Internal Medicine 04/26/16 Loida Montiel I, DO [address] [facility] [address] [place] [address] Specialty Commercial Construction Superintendent Nephrology 06/11/18 Heena Adams [address] [facility] [address] [place] [address] Specialty Commercial Construction Superintendent Endocrinology 06/11/18 Satish Phan MD [address] [place] [address] Specialty Commercial Construction Superintendent General Surgery 07/25/18 Glaze Mixer Relationship Specialty Start Date End Date Zaida Gaston MD [address] [place] [address] PCP - General Internal Medicine 04/26/16 Loida Montiel I, DO [address] [facility] [address] [place] [address] Specialty Commercial Construction Superintendent Nephrology 06/11/18 Heena Adams [address] [facility] [address] [place] [address] Specialty Commercial Construction Superintendent Endocrinology 06/11/18 Satish Phan MD [address] [place] [facility] [place] [address] Specialty Commercial Construction Superintendent General Surgery 07/25/18 Glaze Mixer Relationship Specialty Start Date End Date Zaida Gaston MD [address] [place] [address] PCP - General Internal Medicine 04/26/16 Loida Montiel, Constanza, DO [address] [facility] [address] [place] [address] Specialty Commercial Construction Superintendent Nephrology 06/11/18 Heena Adams [address] [facility] [address] [place] [address] Specialty Commercial Construction Superintendent Endocrinology 06/11/18 Satish Phan MD [address] [facility] [place] [address] Specialty Commercial Construction Superintendent General Surgery 07/25/18 Verna Jensen, [facility] [address] [place] [phone] Pharmacist Pharmacy 08/23/22 Glaze Mixer Relationship Specialty Start Date End Date Zaida Gaston MD [address] [place] [address] PCP - General Internal Medicine 04/26/16 Loida Montiel I, DO [address] [facility] [address] [place] [address] Specialty Commercial Construction Superintendent Nephrology 06/11/18 Heena Adams [address] [facility] [address] [place] [address] Specialty Commercial Construction Superintendent Endocrinology 06/11/18 Satish Phan MD [address] [facility] [place] [address] Specialty Commercial Construction Superintendent General Surgery 07/25/18 [place] [address] [place] [phone] Pharmacist Pharmacy 08/23/22 Glaze Mixer Relationship Specialty Start Date End Date Zaida Gaston MD [address] [place] [address] PCP - General Internal Medicine 04/26/16 Loida Montiel I, DO [address] [place] [address] Specialty Commercial Construction Superintendent Nephrology 06/11/18 Heena Adams [address] [facility] [address] [place] [address] Specialty Commercial Construction Superintendent Endocrinology 06/11/18 Satish Phan MD [address] [facility] [place] [address] Specialty Commercial Construction Superintendent General Surgery 07/25/18 [place]a Jensen[place] [address] [place] [address] Pharmacist Pharmacy 08/23/22 Glaze Mixer Relationship Specialty Start Date End Date Zaida Gaston MD [address] [place] [address] PCP - General Internal Medicine 04/26/16 Loida Montiel I, [address] [place] [address] Specialty Commercial Construction Superintendent Nephrology 06/11/18 Heena Adams [address] [facility] [address] [place] [address] Specialty Commercial Construction Superintendent Endocrinology 06/11/18 Satish Phan MD [address] [facility] [place] [address] Specialty Commercial Construction Superintendent General Surgery 07/25/18 [facility] [address] [place] [phone] Pharmacist Pharmacy 08/23/22 Glaze Mixer Relationship Specialty Start Date End Date Zaida Gaston MD [address] [place] [address] PCP - General Internal Medicine 04/26/16 Loida Montiel I, [address] [place] [address] Specialty Commercial Construction Superintendent Nephrology 06/11/18 Heena Adams [address] [facility] [address] [place] [address] Specialty Commercial Construction Superintendent Endocrinology 06/11/18 Satish Phan MD [address] [facility] [place] [place] [address] Specialty Commercial Construction Superintendent General Surgery 07/25/18 [facility] [address] [place] [address] Pharmacist Pharmacy 08/23/22 Glaze Mixer Relationship Specialty Start Date End Date Zaida Gaston MD [address] [place] [address] PCP - General Internal Medicine 04/26/16 Loida Montiel I, DO [address] [place] [address] Specialty Commercial Construction Superintendent Nephrology 06/11/18 Heena Adams [address] [place] [phone] Specialty Commercial Construction Superintendent Endocrinology 06/11/18 Satish Phan MD [address] [facility], [place] [id number] Specialty Commercial Construction Superintendent General Surgery 07/25/18 [place] CityVerna, [facility] [address] [place] [phone] Pharmacist Pharmacy 08/23/22 Team Status: Active Member Role Status Dates Dr. Zaida Gaston MD Family Provider Active Dr. Zaida Gaston MD Primary Care Provider Active Team Status: Inactive Member Role Status Dates Dr. Zaida Gaston MD Primary Care Provider, Referring Provider Active Mary ROCHA, PA Attending Provider Active Team Status: Active Member Role Status Dates Dr. Zaida Gaston MD Primary Care Provider Active Dr. Dona Medina DPM Other Provider Active Suzanne Cornelius FITTINGS TIGHTENER, FITTINGS TIGHTENER-C Attending Provider, Referri ng Provider Active Team Status: Active Member Role Status Dates Dr. Zaida Gaston MD Primary Care Provider Active Dr. Dona Medina DPM Other Provider Active Jenna Bedoya FITTINGS TIGHTENER, FITTINGS TIGHTENER-C Attending Provider, Referrin g Provider Active Team Status: Active Member Role Status Dates Dr. Zaida Gaston MD Primary Care Provider Active Dr. Mayo Levy , IRIS Referring Provider Active Dr. Dona Medina DPM Other Provider Active Dr. Kerrie Henderson MD Attending Provider Active Team Status: Inactive Member Role Status Dates Dr. Zaida Gaston MD Primary Care Provider, Referring Provider Active Conchis Derrick , FITTINGS TIGHTENER-C Attending Provider Active Team Status: Inactive Member Role Status Dates Dr. Zaida Gaston MD Primary Care Provider Active Dr. Mayo Levy DPM Referring Provider Active Dr. Dona Medina DPM Attending Provider Active Team Status: Inactive Member Role Status Dates Dr. Zaida Gaston MD Primary Care Provider Active Dr. Vj Barroso MD Attending Provider, Emergency Pr ovider Active Glaze Mixer Relationship Specialty Start Date End Date Zaida Gaston MD [address] [place] [address] PCP - General Internal Medicine 04/26/16 Loida Montiel I, DO [address] [place] [address] Specialty Commercial Construction Superintendent Nephrology 06/11/18 Heena Adams [address] [facility] [address] [place] [phone] Specialty Commercial Construction Superintendent Endocrinology 06/11/18 Satish Phan MD [address] [facility] [place] [address] Specialty Commercial Construction Superintendent General Surgery 07/25/18 [place], [facility] [address] [place] [phone] Pharmacist Pharmacy 08/23/22 Team Status: Active Member Role Status Dates Dr. Zaida Gaston MD Primary Care Provider Active Dr. Mayo Levy DPM Referring Provider Active Dr. Dona Medina DPM Attending Provider Active Team Status: Active Member Role Status Dates Dr. Zaida Gaston MD Primary Care Provider Active Dr. Chuy Santiago MD Emergency Provider Active Dr. Mayo Levy DPM Attending Provider Active Team Status: Active Member Role Status Dates Dr. Zaida Gaston MD Primary Care Provider Active Dr. Chuy Santiago MD Emergency Provider Active Dr. Mayo Levy DPM Admit Provider, Other Provide r Active Delmy Billy Other Provider Active Dr. Amy Ureña MD Other Provider Active Dr. William R Brown , DO Other Provider Active Dr. Kerrie Henderson MD Other Provider Active Dr. Awa Martínez MD Other Provider Active Vivian Garrison FITTINGS TIGHTENER, FITTINGS TIGHTENER-C Other Provider Active John Funes FITTINGS TIGHTENER, FITTINGS TIGHTENER-C Other Provider Active AJ Julio Other Provider Active Dr. Satish Nava MD Other Provider Active Dr. Isamar Smith MD Active Dr. Shruti Jara MD Attending Provider Active Team Status: Active Member Role Status Dates Dr. Zaida Gaston MD Primary Care Provider Active Dr. Chuy Santiago MD Emergency Provider Active Dr. Mayo Levy DPM Admit Provider, Referring Provider, Other Provider Active Delmy Billy Other Provider Active Dr. Amy Ureña MD Other Provider Active Dr. William Hayes , DO Other Provider Active Dr. Kerrie Henderson MD Other Provider Active Dr. Awa Martínez MD Other Provider Active Vivian Garrison FITTINGS TIGHTENER, FITTINGS TIGHTENER-C Other Provider Active John Funes FITTINGS TIGHTENER, FITTINGS TIGHTENER-C Other Provider Active AJ Julio Other Provider Active Dr. Satish aNva MD Other Provider Active Dr. Shruti Jara MD Attending Provider Active Team Status: Active Member Role Status Dates Dr. Zaida Gaston MD Primary Care Provider Active Dr. Chuy Santiago MD Emergency Provider Active Dr. Mayo Levy DPM Admit Provider, Other Provide r Active Delmy Billy Other Provider Active Dr. Amy Ureña MD Other Provider Active Dr. William Hayes , DO Other Provider Active Dr. Kerrie Henderson MD Other Provider Active Dr. Awa Martínez MD Other Provider Active Vivian Garrison FITTINGS TIGHTENER, FITTINGS TIGHTENER-C Other Provider Active John Funes FITTINGS TIGHTENER, FITTINGS TIGHTENER-C Other Provider Active AJ Julio Other Provider Active Dr. Satish Nava MD Other Provider Active Dr. Shruti Jara MD Attending Provider Active Team Status: Inactive Member Role Status Dates Dr. Zaida Gaston MD Primary Care Provider Active Dr. Chuy Santiago MD Emergency Provider Active Dr. Mayo Levy DPM Admit Provider, Attending Pro vider Active Delmy Blily Other Provider Active Dr. Amy Ureña MD Other Provider Active Dr. William Hayes , DO Other Provider Active Dr. Kerrie Henderson MD Other Provider Active Dr. Awa Martínez MD Other Provider Active Vivian Garrison FITTINGS TIGHTENER, FITTINGS TIGHTENER-C Other Provider Active John Funes NP, FITTINGS TIGHTENER-C Other Provider Active AJ Julio Other Provider Active Dr. Satish Nava MD Other Provider Active Glaze Mixer Relationship Specialty Start Date End Date Zaida Gaston MD [address] [place] [address] PCP - General Internal Medicine 04/26/16 Loida Montiel I, DO [address] [place] [address] Specialty Commercial Construction Superintendent Nephrology 06/11/18 Heena Adams [address] [facility] [address] [place] [phone] Specialty Commercial Construction Superintendent Endocrinology 06/11/18 Satish Phan MD [address] [facility] [place] [address] Specialty Commercial Construction Superintendent General Surgery 07/25/18 Verna Jensen, [facility] [address] [place] [address] Pharmacist Pharmacy 08/23/22 Glaze Mixer Relationship Specialty Start Date End Date Zaida Gaston MD [address] [place] [address] PCP - General Internal Medicine 04/26/16 Loida Montiel I, DO [address] [place] [address] Specialty Commercial Construction Superintendent Nephrology 06/11/18 Heena Adams [address] [facility] [address] [place] [address] Specialty Commercial Construction Superintendent Endocrinology 06/11/18 Satish Phan MD [address] [facility] [place] [address] Specialty Commercial Construction Superintendent General Surgery 07/25/18 Glaze Mixer Relationship Specialty Start Date End Date Zaida Gaston MD [address] [place] [address] PCP - General Internal Medicine 04/26/16 Loida Montiel I, DO [address] [facility] [address] [place] [address] Specialty Commercial Construction Superintendent Nephrology 06/11/18 Heena Adams [address] [facility] [address] [place] [address] Specialty Commercial Construction Superintendent Endocrinology 06/11/18 Satish Phan MD [address] [facility] [place] [address] Specialty Commercial Construction Superintendent General Surgery 07/25/18 Glaze Mixer Relationship Specialty Start Date End Date Zaida Gaston MD [address] [place] [address] PCP - General Internal Medicine 04/26/16 Loida Montiel I, DO [address] [facility] [address] [place] [address] Specialty Commercial Construction Superintendent Nephrology 06/11/18 Heena Adams [address] [facility] [address] [place] [address] Specialty Commercial Construction Superintendent Endocrinology 06/11/18 Satish Phan MD [address] [facility] [place] [address] Specialty Commercial Construction Superintendent General Surgery 07/25/18 Glaze Mixer Relationship Specialty Start Date End Date Zaida Gaston MD [address] [place] [address] PCP - General Internal Medicine 04/26/16 Lodia Montiel I, DO [address] [facility] [address] [place] [address] Specialty Commercial Construction Superintendent Nephrology 06/11/18 Heena Adams [address] [facility] [address] [place] [address] Specialty Commercial Construction Superintendent Endocrinology 06/11/18 Satish Phan MD [address] [facility] [place] [address] Specialty Commercial Construction Superintendent General Surgery 07/25/18 Team Status: Active Member Role Status Dates Dr. Zaida Gaston MD Primary Care Provider Active Dr. Tylor Rudd MD Attending Provider Active Dr. Mayo Levy , DPM Referring Provider Active Team Status: Inactive Member Role Status Dates Dr. Zaida Gaston MD Primary Care Provider Active LAISHA Moreland Attending Provider, Referring Pr ovider Active Glaze Mixer Relationship Specialty Start Date End Date Zaida Gaston MD [address] [place] [address] PCP - General Internal Medicine 04/26/16 Loida Montiel I, DO [address] [facility] [address] [place] [address] Specialty Commercial Construction Superintendent Nephrology 06/11/18 Heena Adams [address] [facility] [address] [place] [address] Specialty Commercial Construction Superintendent Endocrinology 06/11/18 Satish Phan MD [address] [facility] [place] [address] Specialty Commercial Construction Superintendent General Surgery 07/25/18 Glaze Mixer Relationship Specialty Start Date End Date Zaida Gaston MD [address] [place] [address] PCP - General Internal Medicine 04/26/16 Loida Montiel I, [address] [facility] [address] [place] [address] Specialty Commercial Construction Superintendent Nephrology 06/11/18 Heena Adams [address] [facility] [address] [place] [address] Specialty Commercial Construction Superintendent Endocrinology 06/11/18 Satish Phan MD [address] [facility] [place] [address] Specialty Commercial Construction Superintendent General Surgery 07/25/18 Team Status: Inactive Member Role Status Dates Dr. Zaida Gaston MD Primary Care Provider, Referring Provider Active Yissel Willis NP, FITTINGS TIGHTENER-C Attending Provider Active Team Status: Inactive Member Role Status Dates Dr. Zaida Gaston MD Primary Care Provider Active Dr. Loi Saldana DO Emergency Provider Active Glaze Mixer Relationship Specialty Start Date End Date Zaida Gaston MD [address] [place] [address] PCP - General Internal Medicine 04/26/16 Loida Montiel I, DO [address] [facility] [address] [place] [address] Specialty Commercial Construction Superintendent Nephrology 06/11/18 Heena Adams [address] [facility] [address] [place] [address] Specialty Commercial Construction Superintendent Endocrinology 06/11/18 Satish Phan MD [address] [facility] [place] [address] Specialty Commercial Construction Superintendent General Surgery 07/25/18 Glaze Mixer Relationship Specialty Start Date End Date Zaida Gaston MD [address] [place] [address] PCP - General Internal Medicine 04/26/16 Loida Montiel I, DO [address] [place] [address] Specialty Commercial Construction Superintendent Nephrology 06/11/18 Heena Adams [address] [place] [address] Specialty Commercial Construction Superintendent Endocrinology 06/11/18 Satish Phan MD [address] [place] [address] Specialty Commercial Construction Superintendent General Surgery 07/25/18 Glaze Mixer Relationship Specialty Start Date End Date Zaida Gaston MD [address] [place] [address] PCP - General Internal Medicine 04/26/16 Loida Montiel I, DO [address] [place] [address] Specialty Commercial Construction Superintendent Nephrology 06/11/18 Heena Adams [address] [place] [address] Specialty Commercial Construction Superintendent Endocrinology 06/11/18 Satish Phan MD [address] [place] [address] Specialty Commercial Construction Superintendent General Surgery 07/25/18 Glaze Mixer Relationship Specialty Start Date End Date Zaida Gaston MD [address] [place] [address] PCP - General Internal Medicine 04/26/16 Loida Montiel I, DO [address] [place] [address] Specialty Commercial Construction Superintendent Nephrology 06/11/18 Heena Adams [address] [facility] [address] [place] [address] Specialty Commercial Construction Superintendent Endocrinology 06/11/18 Satish Phan MD [address] [place] [address] Specialty Commercial Construction Superintendent General Surgery 07/25/18 Glaze Mixer Relationship Specialty Start Date End Date Zaida Gaston MD [address] [place] [address] PCP - General Internal Medicine 04/26/16 Loida Montiel I, DO [address] [place] [address] Specialty Commercial Construction Superintendent Nephrology 06/11/18 Heena Adams [address] [facility] [place] [address] Specialty Commercial Construction Superintendent Endocrinology 06/11/18 Satish Phan MD [address] [place] [address] Specialty Commercial Construction Superintendent General Surgery 07/25/18 Glaze Mixer Relationship Specialty Start Date End Date Zaida Gaston MD [address] [place] [address] PCP - General Internal Medicine 04/26/16 Loida Montiel I, DO [address] [place] [address] Specialty Commercial Construction Superintendent Nephrology 06/11/18 Heena Adams [address] [place] [facility] [address] [place] [address] Specialty Commercial Construction Superintendent Endocrinology 06/11/18 Satish Phan MD [address] [place] [address] Specialty Commercial Construction Superintendent General Surgery 07/25/18 Glaze Mixer Relationship Specialty Start Date End Date Zaida Gaston MD [address] [place] [address] PCP - General Internal Medicine 04/26/16 Loida Montiel I, DO [address] [place] [address] Specialty Commercial Construction Superintendent Nephrology 06/11/18 Heena Adams [address] [place] [facility] [address] [place] [address] Specialty Commercial Construction Superintendent Endocrinology 06/11/18 Satish Phan MD [address] [place] [address] Specialty Commercial Construction Superintendent General Surgery 07/25/18 Glaze Mixer Relationship Specialty Start Date End Date Zaida Gaston MD [address] [place] [address] PCP - General Internal Medicine 04/26/16 Loida Montiel I, DO [address] [place] [address] Specialty Commercial Construction Superintendent Nephrology 06/11/18 Heena Adams [address] [facility] [address] [place] [address] Specialty Commercial Construction Superintendent Endocrinology 06/11/18 Satish Phan MD [address] [place] [address] Specialty Commercial Construction Superintendent General Surgery 07/25/18 Glaze Mixer Relationship Specialty Start Date End Date Zaida Gaston MD [address] [place] [address] PCP - General Internal Medicine 04/26/16 Loida Montiel I, DO [address] [facility] [address] [place] [address] Specialty Commercial Construction Superintendent Nephrology 06/11/18 Heena Adams [address] [place] [facility] [address] [place] [address] Specialty Commercial Construction Superintendent Endocrinology 06/11/18 Satish Phan MD [address] [place] [address] Specialty Commercial Construction Superintendent General Surgery 07/25/18 Glaze Mixer Relationship Specialty Start Date End Date Zaida Gaston MD [address] [place] [address] PCP - General Internal Medicine 04/26/16 Loida Montiel I, DO [address] [facility] [address] [place] [address] Specialty Commercial Construction Superintendent Nephrology 06/11/18 Heena Adams [address] [facility] [address] [place] [address] Specialty Commercial Construction Superintendent Endocrinology 06/11/18 Satish Phan MD [address] [place] [address] Specialty Commercial Construction Superintendent General Surgery 07/25/18 Conchis Sheets, RN Registered Nurse Transplant Center 07/25/23 Glaze Mixer Relationship Specialty Start Date End Date Zaida Gaston MD [address] [place] [address] PCP - General Internal Medicine 04/26/16 Loida Montiel I, DO [address] [place] [address] Specialty Commercial Construction Superintendent Nephrology 06/11/18 Heena Adams [address] [place] [facility] [address] [place] [address] Specialty Commercial Construction Superintendent Endocrinology 06/11/18 Satish Phan MD [address] [place] [address] Specialty Commercial Construction Superintendent General Surgery 07/25/18 Conchis Sheets RN Registered Nurse Transplant Center 07/25/23 Glaze Mixer Relationship Specialty Start Date End Date Zaida Gaston MD [address] [place] [address] PCP - General Internal Medicine 04/26/16 Loida Montiel I, DO [address] [facility] [address] [place] [address] Specialty Commercial Construction Superintendent Nephrology 06/11/18 Heena Adams [address] [facility] [address] [place] [address] Specialty Commercial Construction Superintendent Endocrinology 06/11/18 Satish Phan MD [address] [place] [address] Specialty Commercial Construction Superintendent General Surgery 07/25/18 Conchis Sheets, ANDER Registered Nurse Transplant Center 07/25/23 Glaze Mixer Relationship Specialty Start Date End Date Zaida Gaston MD [address] [place] [address] PCP - General Internal Medicine 04/26/16 Loida Montiel I, DO [address] [facility] [address] [place] [address] Specialty Commercial Construction Superintendent Nephrology 06/11/18 Heena Adams [address] [facility] [address] [place] [address] Specialty Commercial Construction Superintendent Endocrinology 06/11/18 Satish Phan MD [address] [place] [address] Specialty Commercial Construction Superintendent General Surgery 07/25/18 Conchis Sheets RN Registered Nurse Transplant Center 07/25/23 Glaze Mixer Relationship Specialty Start Date End Date Zaida Gaston MD [address] [place] [address] PCP - General Internal Medicine 04/26/16 Loida Montiel I, DO [address] [facility] [address] [place] [address] Specialty Commercial Construction Superintendent Nephrology 06/11/18 Heena Adams [address] [place] [facility] [address] [place] [address] Specialty Commercial Construction Superintendent Endocrinology 06/11/18 Satish Phan MD [address] [place] [address] Specialty Commercial Construction Superintendent General Surgery 07/25/18 Conchis Sheets RN Registered Nurse Transplant Center 07/25/23 Glaze Mixer Relationship Specialty Start Date End Date Zaida Gaston MD [address] [place] [address] PCP - General Internal Medicine 04/26/16 Loida Montiel I, DO [address], [place] [address] Specialty Commercial Construction Superintendent Nephrology 06/11/18 Heena Adams [address] [place] [facility] [address] [place] [address] Specialty Commercial Construction Superintendent Endocrinology 06/11/18 Satish Phan MD [address] [place] [address] Specialty Commercial Construction Superintendent General Surgery 07/25/18 Conchis Sheets, ANDER Registered Nurse Transplant Center 07/25/23 Conchis Sheets RN Registered Nurse Transplant Center 09/10/23 Glaze Mixer Relationship Specialty Start Date End Date Zaida Gaston MD [address] [facility], [place] [address] PCP - General Internal Medicine 04/26/16 Loida Montiel I, DO [address] [facility] [address] [place], [place] [address] Specialty Commercial Construction Superintendent Nephrology 06/11/18 Heena Adams [address] [facility] [address] [place] [address] Specialty Commercial Construction Superintendent Endocrinology 06/11/18 Satish Phan MD [address] [facility] [place] [address] Specialty Commercial Construction Superintendent General Surgery 07/25/18 Conchis Sheets, RN Registered Nurse Transplant Center 07/25/23 Conchis Sheets, RN Registered Nurse Transplant Center 09/10/23 Glaze Mixer Relationship Specialty Start Date End Date Zaida Gaston MD [address] [place] [address] PCP - General Internal Medicine 04/26/16 [place] [address] [place] [address] [address] [place] [address] Specialty Commercial Construction Superintendent Nephrology 06/11/18 Heena Adams [address] [facility] [address] [place] [address] Specialty Commercial Construction Superintendent Endocrinology 06/11/18 Satish Phan MD [address] [facility] [place] [address] Specialty Commercial Construction Superintendent General Surgery 07/25/18 Conchis Sheets, RN Registered Nurse Transplant Center 07/25/23 Conchis Sheets, RN Registered Nurse Transplant Center 09/10/23 Glaze Mixer Relationship Specialty Start Date End Date Zaida Gaston MD [address] [place] [address] PCP - General Internal Medicine 04/26/16 Loida Montiel I, DO [address] [facility] [address] [place], [place] [address] Specialty Commercial Construction Superintendent Nephrology 06/11/18 Heena Adams [address] [facility] [address] [place] [address] Specialty Commercial Construction Superintendent Endocrinology 06/11/18 Satish Phan MD [address] [place] [address] Specialty Commercial Construction Superintendent General Surgery 07/25/18 Conchis Sheets RN Registered Nurse Transplant Center 07/25/23 Conchis Sheets RN Registered Nurse Transplant Center 09/10/23 Glaze Mixer Relationship Specialty Start Date End Date Zaida Gaston MD [address] [place] [address] PCP - General Internal Medicine 04/26/16 Loida Montiel I, DO [address] [place] [address] Specialty Commercial Construction Superintendent Nephrology 06/11/18 Heena Adams [address] [facility] [address] [place] [address] Specialty Commercial Construction Superintendent Endocrinology 06/11/18 Satish Phan MD [address] [place] [address] Specialty Commercial Construction Superintendent General Surgery 07/25/18 Conchis Sheets RN Registered Nurse Transplant Center 07/25/23 Conchis Sheets RN Registered Nurse Transplant Center 09/10/23 Glaze Mixer Relationship Specialty Start Date End Date Zaida Gaston MD [address] [place] [address] PCP - General Internal Medicine 04/26/16 Loida Montiel I, DO [address] [facility] [address] [place] [address] Specialty Commercial Construction Superintendent Nephrology 06/11/18 Heena Adams [address] [facility] [address] [place] [address] Specialty Commercial Construction Superintendent Endocrinology 06/11/18 Satish Phan MD [address] [facility] [place] [address] Specialty Commercial Construction Superintendent General Surgery 07/25/18 Conchis Sheets, ANDER Registered Nurse Transplant Center 07/25/23 Conchis Sheets RN Registered Nurse Transplant Center 09/10/23 Glaze Mixer Relationship Specialty Start Date End Date Zaida Gaston MD [address] [place] [address] PCP - General Internal Medicine 04/26/16 Loida Montiel I, DO [address] [facility] [address] [place] [address] Specialty Commercial Construction Superintendent Nephrology 06/11/18 Heena Adams [address] [facility] [address] [place] [address] Specialty Commercial Construction Superintendent Endocrinology 06/11/18 Satish Phan MD [address] [place] [address] Specialty Commercial Construction Superintendent General Surgery 07/25/18 Conchis Sheets, ANDER Registered Nurse Transplant Center 07/25/23 Conchis Sheets, RN Registered Nurse Transplant Center 09/10/23 Glaze Mixer Relationship Specialty Start Date End Date Zaida Gaston MD [address] [place] [address] PCP - General Internal Medicine 04/26/16 Loida Montiel I, DO [address] [place] [address] Specialty Commercial Construction Superintendent Nephrology 06/11/18 Heena Adams [address] [facility] [address] [place] [address] Specialty Commercial Construction Superintendent Endocrinology 06/11/18 Satish Phan MD [address] [facility] [place] [address] Specialty Commercial Construction Superintendent General Surgery 07/25/18 Conchis Sheets, RN Registered Nurse Transplant Center 07/25/23 Conchis Sheets, ANDER Registered Nurse Transplant Center 09/10/23 Glaze Mixer Relationship Specialty Start Date End Date Zaida Gaston MD [address] [place] [address] PCP - General Internal Medicine 04/26/16 Loida Montiel I, DO [address] [place] [address] Specialty Commercial Construction Superintendent Nephrology 06/11/18 Heena Adams [address] [place] [facility] [address] [place] [address] Specialty Commercial Construction Superintendent Endocrinology 06/11/18 Satish Phan MD [address] [facility] [place] [address] Specialty Commercial Construction Superintendent General Surgery 07/25/18 Conchis Sheets, ANDER Registered Nurse Transplant Center 07/25/23 Conchis Sheets RN Registered Nurse Transplant Center 09/10/23 Glaze Mixer Relationship Specialty Start Date End Date Zaida Gaston MD [address] [place] [address] PCP - General Internal Medicine 04/26/16 Lodia Montiel I, [address] [place] [address] Specialty Commercial Construction Superintendent Nephrology 06/11/18 Heena Adams [address] [facility] [address] [place] [address] Specialty Commercial Construction Superintendent Endocrinology 06/11/18 Satish Phan MD [address] [facility] [place] [address] Specialty Commercial Construction Superintendent General Surgery 07/25/18 Conchis Sheets, ANDER Registered Nurse Transplant Center 07/25/23 Conchis Sheets RN Registered Nurse Transplant Center 09/10/23 Glaze Mixer Relationship Specialty Start Date End Date Zaida Gaston MD [address] [place] [address] PCP - General Internal Medicine 04/26/16 Loida Montiel I, [address] [facility] [address] [place], [place] [address] Specialty Commercial Construction Superintendent Nephrology 06/11/18 Heena [facility] [address] [facility] [address] [place] [address] Specialty Commercial Construction Superintendent Endocrinology 06/11/18 Satish Phan MD [address] [place] [address] Specialty Commercial Construction Superintendent General Surgery 07/25/18 Conchis Sheets RN Registered Nurse Transplant Center 07/25/23 Conchis Sheets, ANDER Registered Nurse Transplant Center 09/10/23 Glaze Mixer Relationship Specialty Start Date End Date Zaida Gaston MD [address] [place] [address] PCP - General Internal Medicine 04/26/16 Loida Montiel I, DO [address] [place] [address] Specialty Commercial Construction Superintendent Nephrology 06/11/18 Heena Adams [address] [facility] 201 [place] [address] Specialty Commercial Construction Superintendent Endocrinology 06/11/18 Satish Phan MD [address] [place] [address] Specialty Commercial Construction Superintendent General Surgery 07/25/18 Conchis Sheets RN Registered Nurse Transplant Center 07/25/23 Conchis Sheets RN Registered Nurse Transplant Center 09/10/23 Glaze Mixer Relationship Specialty Start Date End Date Zaida Gaston MD [address] [place] [address] PCP - General Internal Medicine 04/26/16 Loida Montiel I, DO [address] [place] [address] Specialty Commercial Construction Superintendent Nephrology 06/11/18 Heena Adams [address] [facility] 201 [place] [address] Specialty Commercial Construction Superintendent Endocrinology 06/11/18 Satish Phan MD [address] [facility] [place] [address] Specialty Commercial Construction Superintendent General Surgery 07/25/18 Alana Kent APRN.WORKFORCE DEVELOPMENT SPECIALIST [address] [place], [place] [id number] Transplant Center 03/20/24 Glaze Mixer Relationship Specialty Start Date End Date Zaida Gaston MD [address] [place] [address] PCP - General Internal Medicine 04/26/16 Loida Montiel I, DO [address] [facility] [address] [place] [address] Specialty Commercial Construction Superintendent Nephrology 06/11/18 Heena Adams [address] [facility] [address] [place] [address] Specialty Commercial Construction Superintendent Endocrinology 06/11/18 Satish Phan MD [address] [facility] [place] [address] Specialty Commercial Construction Superintendent General Surgery 07/25/18 Alana Kent APRN.WORKFORCE DEVELOPMENT SPECIALIST [address] [address] Transplant Center 03/20/24 Glaze Mixer Relationship Specialty Start Date End Date Zaida Gaston MD [address] [place] [address] PCP - General Internal Medicine 04/26/16 Loida Montiel I, DO [address] [address] Specialty Commercial Construction Superintendent Nephrology 06/11/18 Heena Adams [address] [facility] 201 [place] [address] Specialty Commercial Construction Superintendent Endocrinology 06/11/18 Satish Phan MD [address] [place] [address] Specialty Commercial Construction Superintendent General Surgery 07/25/18 Alana Kent APRN.WORKFORCE DEVELOPMENT SPECIALIST [address] [place] [address] Transplant Center 03/20/24 Glaze Mixer Relationship Specialty Start Date End Date Zaida Gaston MD [address] [place] [address] PCP - General Internal Medicine 04/26/16 Loida Montiel I, DO [address] [address] Specialty Commercial Construction Superintendent Nephrology 06/11/18 Heena Adams [address] [facility] [address] [place] [address] Specialty Commercial Construction Superintendent Endocrinology 06/11/18 Satish Phan MD [address] [place] [address] Specialty Commercial Construction Superintendent General Surgery 07/25/18 Alana Kent APRN.WORKFORCE DEVELOPMENT SPECIALIST [address] [place] [address] Transplant Center 03/20/24 Glaze Mixer Relationship Specialty Start Date End Date Zaida Gaston MD [address] [facility], [place] 367081 PCP - General Internal Medicine 04/26/16 Loida Montiel I, DO [address] [facility] [address] [place], [place] [address]8081 Specialty Commercial Construction Superintendent Nephrology 06/11/18 Heena Adams [address] [facility] 201 [place] [address] Specialty Commercial Construction Superintendent Endocrinology 06/11/18 Satish Phan MD [address] [place] [address] Specialty Commercial Construction Superintendent General Surgery 07/25/18 Alana Kent APRN.WORKFORCE DEVELOPMENT SPECIALIST [address] [place] [address] Transplant Center 03/20/24 Glaze Mixer Relationship Specialty Start Date End Date Zaida Gaston MD [address] [place] [address] PCP - General Internal Medicine 04/26/16 Loida Montiel I, DO [address] [place] [address] Specialty Commercial Construction Superintendent Nephrology 06/11/18 Heena Adams [address] [address] Specialty Commercial Construction Superintendent Endocrinology 06/11/18 Satish Phan MD [address] [place] [address] Specialty Commercial Construction Superintendent General Surgery 07/25/18 Alana Kent APRN.WORKFORCE DEVELOPMENT SPECIALIST [address] [place] [address] Transplant Center 03/20/24 Glaze Mixer Relationship Specialty Start Date End Date Zaida Gaston MD [address] [place] [address] PCP - General Internal Medicine 04/26/16 Loida Montiel I, DO [address] [address] Specialty Commercial Construction Superintendent Nephrology 06/11/18 Heena Adams [address] [address] Specialty Commercial Construction Superintendent Endocrinology 06/11/18 Satish Phan MD [address] [place] [address] Specialty Commercial Construction Superintendent General Surgery 07/25/18 Alana Kent APRN.WORKFORCE DEVELOPMENT SPECIALIST [address] [place], [place] [id number] Transplant Center 03/20/24 Glaze Mixer Relationship Specialty Start Date End Date Zaida Gaston MD [address] [place] [address] PCP - General Internal Medicine 04/26/16 Loida Monteil I, DO [address] [address] Specialty Commercial Construction Superintendent Nephrology 06/11/18 Heena Adams [address] [facility] 201 [place] [address] Specialty Commercial Construction Superintendent Endocrinology 06/11/18 Satish Phan MD [address] [place] [address] Specialty Commercial Construction Superintendent General Surgery 07/25/18 Alana Kent APRN.[facility] [address] [place], [place] [address] Transplant Center 03/20/24 Glaze Mixer Relationship Specialty Start Date End Date Zaida Gaston MD [address] [place] [address] PCP - General Internal Medicine 04/26/16 Loida Montiel I, DO [address] [address] Specialty Commercial Construction Superintendent Nephrology 06/11/18 Heena Adams [address] [facility] [address] [place] [address] Specialty Commercial Construction Superintendent Endocrinology 06/11/18 Satish Phan MD [address] [place] [address] Specialty Commercial Construction Superintendent General Surgery 07/25/18 Alana Kent APRN.WORKFORCE DEVELOPMENT SPECIALIST [address] [place], [place] [address] Transplant Center 03/20/24 Glaze Mixer Relationship Specialty Start Date End Date Zaida Gaston MD [address] [facility] [place], [place] 331381 PCP - General Internal Medicine 04/26/16 Loida Montiel I, DO [address] [place], [place] [address]7961 Specialty Commercial Construction Superintendent Nephrology 06/11/18 Heena Adams [address] [facility] [address] [place] [address] Specialty Commercial Construction Superintendent Endocrinology 06/11/18 Satish Phan MD [address] [place] [address] Specialty Commercial Construction Superintendent General Surgery 07/25/18 Alana Kent APRN.WORKFORCE DEVELOPMENT SPECIALIST [address] [place] [address] Transplant Center 03/20/24 Glaze Mixer Relationship Specialty Start Date End Date Zaida Gaston MD [address] [place] [address] PCP - General Internal Medicine 04/26/16 Loida Montiel I, DO [address] [place] [address] Specialty Commercial Construction Superintendent Nephrology 06/11/18 Heena Adams [address] [address] Specialty Commercial Construction Superintendent Endocrinology 06/11/18 Satish Phan MD [address] [place] [address] Specialty Commercial Construction Superintendent General Surgery 07/25/18 Alana Kent APRN.WORKFORCE DEVELOPMENT SPECIALIST [address] [place] [address] Transplant Center 03/20/24 Glaze Mixer Relationship Specialty Start Date End Date Zaida Gasotn MD [address] [place] [address] PCP - General Internal Medicine 04/26/16 Loida Montiel I, DO [address] [address] Specialty Commercial Construction Superintendent Nephrology 06/11/18 Heena Adams [address] [address] Specialty Commercial Construction Superintendent Endocrinology 06/11/18 Satish Phan MD [address] [place] [address] Specialty Commercial Construction Superintendent General Surgery 07/25/18 Alana Kent APRN.WORKFORCE DEVELOPMENT SPECIALIST [address] [place], [place] 3125695 Transplant Center 03/20/24 Glaze Mixer Relationship Specialty Start Date End Date Zaiad Gaston MD [address] [place], [place] [address]08191 PCP - General Internal Medicine 04/26/16 Loida Montiel I, DO [address] [address] Specialty Commercial Construction Superintendent Nephrology 06/11/18 Heena Adams [address] [facility] 201 [place] [address] Specialty Commercial Construction Superintendent Endocrinology 06/11/18 Satish Phan MD [address] [place], [place] [address] Specialty Commercial Construction Superintendent General Surgery 07/25/18 Alana Kent APRN.WORKFORCE DEVELOPMENT SPECIALIST [address] [place] [address] Transplant Center 03/20/24 Xiang Perez PA-C [address] [place] [address] Fast Food Restaurant Manager Family Medicine 08/16/24 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 APRN.WORKFORCE DEVELOPMENT SPECIALIST [address] [place] [address] Fast Food Restaurant Manager Internal Medicine 08/16/24 Amber Gray PA-C [address] [place] [address] Fast Food Restaurant Manager Family Medicine 08/16/24 Glaze Mixer Relationship Specialty Start Date End Date Zaida Gaston MD [address] [place] [address] PCP - General Internal Medicine 04/26/16 Loida Montiel I, DO [address] [address] Specialty Commercial Construction Superintendent Nephrology 06/11/18 Heena Adams [address] [address] Specialty Commercial Construction Superintendent Endocrinology 06/11/18 Satish Phan MD [address] [place] [address] Specialty Commercial Construction Superintendent General Surgery 07/25/18 Alana Kent APRN.WORKFORCE DEVELOPMENT SPECIALIST [address] [place] [address] Transplant Center 03/20/24 Xiang Perez PA-C [address] [place] [address] Fast Food Restaurant Manager Family Medicine 08/16/24 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 APRN.WORKFORCE DEVELOPMENT SPECIALIST [address] [place] [address] Fast Food Restaurant Manager Internal Medicine 08/16/24 Amber Gray PA-C [address] [place], [place] 070921 Fast Food Restaurant Manager Family [facility] 08/16/24 Glaze Mixer Relationship Specialty Start Date End Date Zaida Gaston MD [address] [place], [place] [address]64[address] PCP - General Internal Medicine 04/26/16 Loida Montiel I, DO [address] [address] Specialty Commercial Construction Superintendent Nephrology 06/11/18 Heena Adams [address] [facility] [address] [place] [address] Specialty Commercial Construction Superintendent Endocrinology 06/11/18 Satish Phan MD [address] [place], [place] 368[address] Specialty Commercial Construction Superintendent General Surgery 07/25/18 Alana Kent APRN.WORKFORCE DEVELOPMENT SPECIALIST [address] [place] [address] Transplant Center 03/20/24 Xiang Perez PA-C [address] [place] [address] Fast Food Restaurant Manager Family Medicine 08/16/24 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 APRN.WORKFORCE DEVELOPMENT SPECIALIST [address] [place], [place] 457261 Fast Food Restaurant Manager Internal Medicine 08/16/24 Amber Gray PA-C [address] [place], [place] 665501 Fast Food Restaurant Manager Family Medicine 08/16/24 Team Status: Active Member Role Status Dates Dr. Zaida Gaston MD Primary Care Provider Active Team Status: Inactive Member Role Status Dates Dr. Zaida Gaston MD Primary Care Provider Active Start: July 28, 2024 End: July 28, 2024 Dr. Zaida Gaston MD Referring Provider Active Start: July 28, 2024 End: July 28, 2024 Dr. Steve Durand MD Attending Provider Active Sta rt: July 28, 2024 End: July 28, 2024 Team Status: Inactive Member Role Status Dates Dr. Zaida Gaston MD Primary Care Provider Active Start: November 19, 2024 End: November 19, 2024 Dr. Yony Solis DO Referring Provider Active Start : November 19, 2024 End: November 19, 2024 Dr. Yony oSlis DO Emergency Provider Active Start : November 19, 2024 End: November 19, 2024 Team Status: Inactive Member Role Status Dates Dr. Zaida Gaston MD Primary Care Provider Active Start: November 19, 2024 End: November 19, 2024 Dr. Yony Solis DO Attending Provider Active Start : November 19, 2024 End: November 19, 2024 Dr. Yony Solis DO Referring Provider Active Start : November 19, 2024 End: November 19, 2024 Dr. Yony Solis DO Emergency Provider Active Start : November 19, 2024 End: November 19, 2024 Team Status: Inactive Member Role Status Dates Dr. Zaida Gaston MD Primary Care Provider Active Start: January 26, 2025 End: January 27, 2025 Dr. Yony Solis DO Emergency Provider Active Start : January 26, 2025 End: January 27, 2025 Glaze Mixer Relationship Specialty Start Date End Date Zaida Gaston MD [address] [place], [place] [address]37291 PCP - General Internal Medicine 04/26/16 Loida Montiel I, DO [address] [facility] [address] [place], [place] 223021 Specialty Commercial Construction Superintendent Nephrology 06/11/18 Heena Adams [address] [facility] [address] [place] [address] Specialty Commercial Construction Superintendent Endocrinology 06/11/18 Satish Phan MD [address] [place], [place] 892441 Specialty Commercial Construction Superintendent General Surgery 07/25/18 Alana Kent APRN.WORKFORCE DEVELOPMENT SPECIALIST [address] [facility] [place] [address] Transplant Center 03/20/24 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 APRN.WORKFORCE DEVELOPMENT SPECIALIST [address] [place] [address] Fast Food Restaurant Manager Internal Medicine 08/16/24 Leona Esteves MD Fast Food Restaurant Manager 01/29/25 02/11/25 Glaze Mixer Relationship Specialty Start Date End Date Zaida Gaston MD [address] [place] [address] PCP - General Internal Medicine 04/26/16 Loida Montiel I, DO [address] [address]13[address] Specialty Commercial Construction Superintendent Nephrology 06/11/18 Heena Adams [address] [address] Specialty Commercial Construction Superintendent Endocrinology 06/11/18 Satish Phan MD [address] [place] [address] Specialty Commercial Construction Superintendent General Surgery 07/25/18 Alana Kent APRN.WORKFORCE DEVELOPMENT SPECIALIST [address] [place] [address] Transplant Center 03/20/24 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 APRN.WORKFORCE DEVELOPMENT SPECIALIST [address] [place], [place] 251361 Fast Food Restaurant Manager Internal Medicine 08/16/24 Leona Esteves MD Fast Food Restaurant Manager 01/29/25 02/11/25 Glaze Mixer Relationship Specialty Start Date End Date Zaida Gasotn MD [address] [place] [address] PCP - General Internal Medicine 04/26/16 Loida Montiel I, DO [address] [address] Specialty Commercial Construction Superintendent Nephrology 06/11/18 Heena Adams [address] [phone] Specialty Commercial Construction Superintendent Endocrinology 06/11/18 Satish Phan MD [address] [place] [address] Specialty Commercial Construction Superintendent General Surgery 07/25/18 Alana Kent APRN.WORKFORCE DEVELOPMENT SPECIALIST [address] [place] [address] Transplant Center 03/20/24 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 APRN.WORKFORCE DEVELOPMENT SPECIALIST [address] [place] [address] Fast Food Restaurant Manager Internal Medicine 08/16/24 Leona Esteves MD Fast Food Restaurant Manager 01/29/25 02/11/25 Glaze Mixer Relationship Specialty Start Date End Date Zaida Gaston MD [address] [place], [place] [address] PCP - General Internal Medicine 04/26/16 Loida Montiel I, DO [address] [address] Specialty Commercial Construction Superintendent Nephrology 06/11/18 Heena Adams [address] [phone] Specialty Commercial Construction Superintendent Endocrinology 06/11/18 Satish Phan MD [address] [place], [place] 109131 Specialty Commercial Construction Superintendent General Surgery 07/25/18 Alana Kent APRN.WORKFORCE DEVELOPMENT SPECIALIST [address] [place] [address] Transplant Center 03/20/24 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 APRN.WORKFORCE DEVELOPMENT SPECIALIST [address] [place], [place] [address] Fast Food Restaurant Manager Internal Medicine 08/16/24 ProviderLeona MD Fast Food Restaurant Manager 01/29/25 02/11/25 Team Status: Inactive Member Role Status Dates Dr. Zaida Gaston MD Primary Care Provider Active Start: January 26, 2025 End: January 27, 2025 Dr. Yony Solis DO Attending Provider Active Start : January 26, 2025 End: January 27, 2025 Dr. Yony Solis DO Emergency Provider Active Start : January 26, 2025 End: January 27, 2025 Team Status: Inactive Member Role Status Dates Dr. Zaida Gaston MD Primary Care Provider Active Start: February 07, 2025 End: February 07, 2025 Dr. Toni Nelson DO Emergency Provider Active S tart: February 07, 2025 End: February 07, 2025 Glaze Mixer Relationship Specialty Start Date End Date Zaida Gaston MD [address] [place], [place] 585731 PCP - General Internal Medicine 04/26/16 Loida Montiel I, DO [address] [address]379[address] Specialty Commercial Construction Superintendent Nephrology 06/11/18 Heena Adams [address] [facility] 201 [place] [address] Specialty Commercial Construction Superintendent Endocrinology 06/11/18 Satish Phan MD [address] [place] [address] Specialty Commercial Construction Superintendent General Surgery 07/25/18 Alana Kent APRN.WORKFORCE DEVELOPMENT SPECIALIST [address] [place] [address] Transplant Center 03/20/24 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 APRN.WORKFORCE DEVELOPMENT SPECIALIST [address] [place] [address] Fast Food Restaurant Manager Internal Medicine 08/16/24 Leona Esteves MD Fast Food Restaurant Manager 01/29/25 02/11/25 Glaze Mixer Relationship Specialty Start Date End Date Zaida Gaston MD [address] [place] [address] PCP - General Internal Medicine 04/26/16 Loida Montiel I, DO [address] [address]29[address] Specialty Commercial Construction Superintendent Nephrology 06/11/18 Heena Adams [address] [facility] [address] [place] [address] Specialty Commercial Construction Superintendent Endocrinology 06/11/18 Satish Phan MD [address] [place] [address] Specialty Commercial Construction Superintendent General Surgery 07/25/18 Alana Kent APRN.WORKFORCE DEVELOPMENT SPECIALIST [address] [place] [address] Transplant Center 03/20/24 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 APRN.WORKFORCE DEVELOPMENT SPECIALIST [address] [facility] [place] [address] Fast Food Restaurant Manager Internal Medicine 08/16/24 ProviderLeona MD Fast Food Restaurant Manager 01/29/25 02/11/25 Glaze Mixer Relationship Specialty Start Date End Date Zaida Gaston MD [address] [place] [address] PCP - General Internal Medicine 04/26/16 Loida Montiel I, DO [address], [place] [address] Specialty Commercial Construction Superintendent Nephrology 06/11/18 Heena Adams [address] [facility] [address] [place] [address] Specialty Commercial Construction Superintendent Endocrinology 06/11/18 Satish Phan MD [address] [place] [address] Specialty Commercial Construction Superintendent General Surgery 07/25/18 Alana Kent APRN.WORKFORCE DEVELOPMENT SPECIALIST [address] [place] [address] Transplant Center 03/20/24 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 APRN.WORKFORCE DEVELOPMENT SPECIALIST [address] [facility] [address] Fast Food Restaurant Manager Internal Medicine 08/16/24 Glaze Mixer Relationship Specialty Start Date End Date Zaida Gaston MD [address] [place] [address] PCP - General Internal Medicine 04/26/16 Loida Montiel I, DO [address] [facility] [address] [place], [place] 264931 Specialty Commercial Construction Superintendent Nephrology 06/11/18 Heena Adams [address] [facility] [address] [place] [phone] Specialty Commercial Construction Superintendent Endocrinology 06/11/18 Satish Phan MD [address] [place], [place] [address] Specialty Commercial Construction Superintendent General Surgery 07/25/18 Alana Kent APRN.WORKFORCE DEVELOPMENT SPECIALIST [address] [address] Transplant Center 03/20/24 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 APRN.WORKFORCE DEVELOPMENT SPECIALIST [address] [place], [place] 445721 Fast Food Restaurant Manager Internal Medicine 08/16/24 Leona Esteves MD Fast Food Restaurant Manager 01/29/25 02/11/25 Glaze Mixer Relationship Specialty Start Date End Date Zaida Gaston MD [address] [place], [place] 573571 PCP - General Internal Medicine 04/26/16 Loida Montiel I, DO [address] [address]45[address] Specialty Commercial Construction Superintendent Nephrology 06/11/18 Heena Adams [address] [facility] [address] [place] [phone] Specialty Commercial Construction Superintendent Endocrinology 06/11/18 Satish Phan MD [address] [place], [place] [address] Specialty Commercial Construction Superintendent General Surgery 07/25/18 Alana Kent APRN.WORKFORCE DEVELOPMENT SPECIALIST [address] [place] [address] Transplant Center 03/20/24 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 APRN.WORKFORCE DEVELOPMENT SPECIALIST [address] [place], [place] 260351 Fast Food Restaurant Manager Internal Medicine 08/16/24 [place], [facility] [address] [place] [address] Pharmacist Pharmacy 03/08/25 Glaze Mixer Relationship Specialty Start Date End Date Zaida Gaston MD [address] [place], [place] [address]79311 PCP - General Internal Medicine 04/26/16 Loida Montiel I, DO [address] [address] Specialty Commercial Construction Superintendent Nephrology 06/11/18 Heena Adams [address] [address] Specialty Commercial Construction Superintendent Endocrinology 06/11/18 Satish Phan MD [address] [place] [address] Specialty Commercial Construction Superintendent General Surgery 07/25/18 Alana Kent APRN.WORKFORCE DEVELOPMENT SPECIALIST [address] [place] [address] Transplant Center 03/20/24 ShaeDeliaPATRICIA.WORKFORCE DEVELOPMENT SPECIALIST [address] [place] [address] Fast Food Restaurant Manager Internal Medicine 08/16/24 [facility] [address] [place] [phone] Pharmacist Pharmacy 03/08/25 Team Status: Active Member Role/Relationship Status Dates Dr. Zaida Gaston MD Primary Care Provider Active Team Status: Inactive Member Role/Relationship Status Dates Dr. Zaida Gaston MD Primary Care Provider Active Start: November 19, 2024 End: November 19, 2024 Dr. oYny Solis DO Attending Provider Active Start : November 19, 2024 End: November 19, 2024 Dr. Yony Solis DO Referring Provider Active Start : November 19, 2024 End: November 19, 2024 Dr. Yony Solis DO Emergency Provider Active Start : November 19, 2024 End: November 19, 2024 Team Status: Inactive Member Role/Relationship Status Dates Dr. Zaida Gaston MD Primary Care Provider Active Start: January 26, 2025 End: January 27, 2025 Dr. Yony Solis DO Attending Provider Active Start : January 26, 2025 End: January 27, 2025 Dr. Yony Solis DO Emergency Provider Active Start : January 26, 2025 End: January 27, 2025 Team Status: Inactive Member Role/Relationship Status Dates Dr. Zaida Gaston MD Primary Care Provider Active Start: February 07, 2025 End: February 07, 2025 Dr. Toni Nelson DO Attending Provider Active S tart: February 07, 2025 End: February 07, 2025 Dr. Toni Nelson DO Emergency Provider Active S tart: February 07, 2025 End: February 07, 2025 Team Status: Inactive Member Role/Relationship Status Dates Dr. Zaida Gaston MD Primary Care Provider Active Start: March 10, 2025 End: March 10, 2025 Dr. Byron Saldana DO Emergency Provider Active Start: March 10, 2025 End: March 10, 2025 Glaze Mixer Relationship Specialty Start Date End Date Zaida Gaston MD [address] [place] [address] PCP - General Internal Medicine 04/26/16 Loida Montiel I, DO [address] [id number] Specialty Commercial Construction Superintendent Nephrology 06/11/18 Heena Adams [address] [facility] [address] [place] [phone] Specialty Commercial Construction Superintendent Endocrinology 06/11/18 Satish Phan MD [address] [facility] [place], [place] [id number] Specialty Commercial Construction Superintendent General Surgery 07/25/18 Alana Kent APRN.WORKFORCE DEVELOPMENT SPECIALIST [address] [place] [address] Transplant Center 03/20/24 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 APRN.WORKFORCE DEVELOPMENT SPECIALIST [address] [place] [address] Fast Food Restaurant Manager Internal Medicine 08/16/24 Verna Jensen, [facility] [address] [place] [phone] Pharmacist Pharmacy 03/08/25 Goals (unrecognized section and content) Goals may be documented in a n alternate sectionGoals may be documented in an alternate sectionGoals may be documented in an alternate sectionGoals may be documented in an alternate sectionGoals may be documented in an alternate sectionGoals may be documented in an alternate sectionGoals may be documented in an alternate sectionGoals may be documented in an alternate sectionGoals may be documented in an alternate sectionGoals may be documented in an alternate sectionGoals may be documented in an alternate sectionGoals may be documented in an alternate sectionGoals may be documented in an alternate sectionGoals may be documented in an alternate sectionGoals may be documented in an alternate section (unrecognized sect ion and content) No Status Records FoundNo Status Records FoundNo Status Records Found INFORMATION SOURCE (unrecogn ized section and content) DATE CREATED AUTHOR 04/11/2024 [facility] DATE CREATED AUTHOR AUTHOR'S ORGANIZ ATION 03/18/2025 [facility] DATE CREATED AUTHOR AUTHOR'S ORGANIZ ATION 03/21/2025 [facility] FOR RECORDS PERTAINING TO PATIENTS WHO ARE OR HAVE BEEN ENROLLED IN A CHEMICAL DEPENDENCY/SUBSTANCEABUSE PROGRAM, SOME INFORMATION MAY BE OMITTED. This clinical summary was aggregated from multiple sources. Caution should be exercised in using it in the provision of clinical care. This summary normalizes information from multiple sources, and as a consequence, information in this document may materially change the coding, format and clinical context of patient data. In addition, data may be omitted in some cases. CLINICAL DECISIONS SHOULD BE BASED ON THE PRIMARY CLINICAL RECORDS. [employer] [facility]. provides no warranty or guarantee of the accuracy or completeness of information in this document.
[2025-04-04] MEDS: 0.9% Normal Saline (1000mL) 1,000 ML 1000 ML IV ×2 (11:53→15:07)
[2025-04-04 11:58] LABS: Hematocrit 36.8 % (40-54); Hemoglobin 12.3 g/dL (13.0-16.5); Immature Granulocytes Count 0.020 X10^3/uL (0.0-0.0); Mean Corp Hgb Conc 33.4 g/dL (32-36); Mean Corpuscular Volume 89.1 fL (80-94); Mean Platelet Vol. 9.3 fl (6.2-12.0); NRBC Flagged by Analyzer 0 % (0-5); Platelet Count 341 K/mm3 (150-450); RBC Distribution Width CV 12.4 % (11.6-14.6); RBC Distribution Width SD 40.5 fl (35.1-43.9); Red Blood Count 4.13 M/mm3 (4.6-6.2); White Blood Count 8.2 K/mm3 (4.4-11.0)
[2025-04-04 12:14] LABS: Anion Gap 12 (5-15); BUN 21 mg/dL (4-19); BUN/Creat Ratio 16.7 RATIO (10-20); Calcium,Total 9.8 mg/dL (7.6-11.0); Carbon Dioxide 22.2 mmol/L (21.0-32.0); Chloride 94 mmol/L (98-108); Estimated Creatinine Clearance 63.33 ml/min (50-250); Glucose 581 mg/dL (70-99); Potassium 5.1 mmol/L (3.3-5.1)
[2025-04-04 12:19] LABS: Mucous, Urine 0 SEEN /hpf (<or=2+); Squamous Epithelial Cells - UA 0 SEEN /hpf (0-5)
[2025-04-04 12:31] LABS: Color, Urine Yellow (Yellow); Glucose, Dipstick 1000 mg/dl (Normal); Ketone-Dipstick Negative (Negative); Leukocyte Esterase-Dipstick 500 /ul (Negative); Nitrite-Dipstick Positive (Negative); Occult Blood-Urine 150 /ul (Negative); Protein-Dipstick 30 mg/dl (Negative); Specific Gravity, Urine 1.010 (1.002-1.030); Urine Bilirubin Dipstick Negative (Negative)
[2025-04-04 12:42] LABS: Red Blood Cells-Urine 5-10 SEEN /hpf (0-5)
[2025-04-04 13:04] VITALS: BP 133/83; PULSE 92; RESP 17; O2SAT 99
[2025-04-04 15:00] VITALS: BP 126/74; PULSE 97; RESP 16
[2025-04-04 16:33] VITALS: BP 143/82; PULSE 98; RESP 16; TEMP 37.2; O2SAT 99
== END 2025-04-04 16:40 | disposition home or self-care (01) ==
PROVIDERS: Emergency Provider Emergency Medicine; PCP Internal Medicine; Visit Provider Emergency Medicine
DX: E11.65 Type 2 diabetes mellitus with hyperglycemia (principal); I13.2 Hypertensive heart and chronic kidney disease with heart failure and with stage 5 chronic kidney disease, or end stage renal disease; N18.5 Chronic kidney disease, stage 5; Z93.6 Other artificial openings of urinary tract status; I50.33 Acute on chronic diastolic (congestive) heart failure; Z79.4 Long term (current) use of insulin; E11.22 Type 2 diabetes mellitus with diabetic chronic kidney disease; E11.42 Type 2 diabetes mellitus with diabetic polyneuropathy; E11.319 Type 2 diabetes mellitus with unspecified diabetic retinopathy without macular edema; I25.2 Old myocardial infarction; R11.2 Nausea with vomiting, unspecified; I25.10 Atherosclerotic heart disease of native coronary artery without angina pectoris; E78.5 Hyperlipidemia, unspecified; R79.89 Other specified abnormal findings of blood chemistry; R20.2 Paresthesia of skin; Z87.891 Personal history of nicotine dependence; R05.9 Cough, unspecified; Z99.89 Dependence on other enabling machines and devices; Z86.16 Personal history of COVID-19; Z90.49 Acquired absence of other specified parts of digestive tract; R35.0 Frequency of micturition; E66.3 Overweight; Z94.0 Kidney transplant status; Z79.899 Other long term (current) drug therapy
CPT/HCPCS: 80048; 81001; 82962; 85025; 87077; 87086; 87088; 87186; 96360; 96361; 99285; A4216

== ENCOUNTER 2025-04-14 17:22 | Inpatient (IN) | payer MEDICARE, MEDICAID, SELFPAY ==
[2025-04-14] VITALS (15 sets, daily range): BP systolic 91–126; BP diastolic 57–84; PULSE 76–120; RESP 9–26; TEMP 36.6–39.7; O2SAT 92–100; BMI 25.9
[2025-04-14] MEDS: 0.9% Normal Saline (1000mL) 1,000 ML 999 ML IV (17:54)
[2025-04-14 18:03] LABS: Hematocrit 39.7 % (40-54); Hemoglobin 13.3 g/dL (13.0-16.5); Immature Granulocytes Count 0.060 X10^3/uL (0.0-0.0); Mean Corp Hgb Conc 33.5 g/dL (32-36); Mean Corpuscular Volume 87.1 fL (80-94); Mean Platelet Vol. 9.4 fl (6.2-12.0); NRBC Flagged by Analyzer 0 % (0-5); Platelet Count 276 K/mm3 (150-450); RBC Distribution Width CV 12.3 % (11.6-14.6); RBC Distribution Width SD 39.6 fl (35.1-43.9); Red Blood Count 4.56 M/mm3 (4.6-6.2); White Blood Count 12.6 K/mm3 (4.4-11.0)
[2025-04-14 18:18] LABS: Prothrombin Time (Protime)PT. 15.1 SECONDS (11.7-14.9)
[2025-04-14 18:19] LABS: Partial Thromboplast Time 35.4 Seconds (24.1-36.2)
[2025-04-14 18:21] LABS: AST(SGOT) 18 U/L (<=37); Alanine Aminotransfer ALT/SGPT 12 U/L (<=46); Albumin, Serum 3.9 g/dL (3.5-5.0); Alkaline Phosphatase 141 U/L (40-129); Anion Gap 16 (5-15); BUN 26 mg/dL (4-19); BUN/Creat Ratio 15.9 RATIO (10-20); Calcium,Total 10.1 mg/dL (7.6-11.0); Carbon Dioxide 22.5 mmol/L (21.0-32.0); Chloride 92 mmol/L (98-108); Estimated Creatinine Clearance 49.26 ml/min (50-250); Globulin 4.7 g/dL (2.2-4.2); Glucose 429 mg/dL (70-99); Potassium 4.3 mmol/L (3.3-5.1)
[2025-04-14] MEDS: 0.9% Normal Saline (1000mL) 1,000 ML 1000 ML IV (18:55)
[2025-04-14 19:53] LABS: Mucous, Urine 0 SEEN /hpf (<or=2+); Squamous Epithelial Cells - UA 0 SEEN /hpf (0-5)
[2025-04-14 20:09] LABS: Color, Urine Yellow (Yellow); Glucose, Dipstick 1000 mg/dl (Normal); Ketone-Dipstick Negative (Negative); Leukocyte Esterase-Dipstick 500 /ul (Negative); Nitrite-Dipstick Positive (Negative); Occult Blood-Urine 250 /ul (Negative); Protein-Dipstick 100 mg/dl (Negative); Specific Gravity, Urine 1.015 (1.002-1.030); Urine Bilirubin Dipstick Negative (Negative)
[2025-04-14 20:21] LABS: Red Blood Cells-Urine 5-10 SEEN /hpf (0-5)
[2025-04-14] MEDS: Cefepime HCl 2 GM in 0.9% Normal Saline (100mL MB+) 100 ML IV (20:52)
[2025-04-14] MEDS: Vancomycin HCl 1,250 MG in 0.9% Normal Saline (250mL Bag) 250 ML 167 MG IV (22:19)
[2025-04-15] VITALS (60 sets, daily range): BP systolic 107–225; BP diastolic 61–197; PULSE 63–135; RESP 0–26; TEMP 36.5–39.3; O2SAT 85–100; BMI 25.2
[2025-04-15] MEDS: 0.9% Normal Saline (1000mL) 1,000 ML 999 ML IV
[2025-04-15] MEDS: Lorazepam 2 MG/ML WCH Syringe 1 MG IV (03:56)
[2025-04-15] MEDS: 0.9% Normal Saline (1000mL) 1,000 ML 150 ML IV ×3 (05:03→22:13)
[2025-04-15] MEDS: Cefepime HCl 2 GM in 0.9% Normal Saline (100mL MB+) 100 ML IV (08:44)
[2025-04-15] MEDS: Vancomycin HCl 500 MG in 0.9% Normal Saline (100mL Bag) 100 ML 100 MG IV (15:56)
[2025-04-15 18:39] LABS: Hematocrit 34.4 % (40-54); Hemoglobin 11.3 g/dL (13.0-16.5); Immature Granulocytes Count 0.040 X10^3/uL (0.0-0.0); Mean Corp Hgb Conc 32.8 g/dL (32-36); Mean Corpuscular Volume 88.7 fL (80-94); Mean Platelet Vol. 9.1 fl (6.2-12.0); NRBC Flagged by Analyzer 0 % (0-5); Platelet Count 224 K/mm3 (150-450); RBC Distribution Width CV 12.5 % (11.6-14.6); RBC Distribution Width SD 40.5 fl (35.1-43.9); Red Blood Count 3.88 M/mm3 (4.6-6.2); White Blood Count 11.6 K/mm3 (4.4-11.0)
[2025-04-15 19:56] LABS: Anion Gap 9 (5-15); BUN 21 mg/dL (4-19); BUN/Creat Ratio 19.3 RATIO (10-20); Calcium,Total 9.1 mg/dL (7.6-11.0); Carbon Dioxide 21.9 mmol/L (21.0-32.0); Chloride 104 mmol/L (98-108); Estimated Creatinine Clearance 72.55 ml/min (50-250); Glucose 267 mg/dL (70-99); Potassium 4.1 mmol/L (3.3-5.1)
[2025-04-15] MEDS: Cefepime HCl 1 GM in 0.9% Normal Saline (50mL MB+) 50 ML IV (22:13)
[2025-04-16 06:13] LABS: Hematocrit 30.4 % (40-54); Hemoglobin 10.0 g/dL (13.0-16.5); Immature Granulocytes Count 0.010 X10^3/uL (0.0-0.0); Mean Corp Hgb Conc 32.9 g/dL (32-36); Mean Corpuscular Volume 89.9 fL (80-94); Mean Platelet Vol. 9.4 fl (6.2-12.0); NRBC Flagged by Analyzer 0 % (0-5); Platelet Count 197 K/mm3 (150-450); RBC Distribution Width CV 12.3 % (11.6-14.6); RBC Distribution Width SD 40.1 fl (35.1-43.9); Red Blood Count 3.38 M/mm3 (4.6-6.2); White Blood Count 6.8 K/mm3 (4.4-11.0)
[2025-04-16 06:45] LABS: Anion Gap 10 (5-15); BUN 16 mg/dL (4-19); BUN/Creat Ratio 15.0 RATIO (10-20); Calcium,Total 9.0 mg/dL (7.6-11.0); Carbon Dioxide 19.9 mmol/L (21.0-32.0); Chloride 106 mmol/L (98-108); Estimated Creatinine Clearance 73.89 ml/min (50-250); Glucose 153 mg/dL (70-99); Potassium 3.5 mmol/L (3.3-5.1)
[2025-04-16] MEDS: 0.9% Normal Saline (1000mL) 1,000 ML 150 ML IV ×3 (06:50→19:34)
[2025-04-16 09:05] VITALS: BP 131/68; PULSE 84; RESP 18; TEMP 36.5; O2SAT 93
[2025-04-16] MEDS: Cefepime HCl 1 GM in 0.9% Normal Saline (50mL MB+) 50 ML IV ×2 (09:05→21:56)
[2025-04-16] MEDS: Smz/Tmp Ds Tablet 0.5 TABLET PO (09:09)
[2025-04-16] MEDS: buPROPion (XL) 150 MG TABLET.XL PO (09:12)
[2025-04-16] MEDS: Vancomycin HCl 2,000 MG in 0.9% Normal Saline (500mL Bag) 500 ML 250 MG IV (11:07)
[2025-04-16 15:05] VITALS: BP 126/76; PULSE 88; RESP 18; TEMP 36.7; O2SAT 96
[2025-04-16 19:36] VITALS: BP 127/71; PULSE 75; RESP 18; TEMP 37; O2SAT 95
[2025-04-16] MEDS: Vancomycin HCl 1,000 MG in 0.9% Normal Saline (250mL Bag) 250 ML 250 MG IV (22:52)
[2025-04-17 02:39] VITALS: BP 137/84; PULSE 71; RESP 18; TEMP 37.1; O2SAT 98
[2025-04-17] MEDS: 0.9% Normal Saline (1000mL) 1,000 ML 150 ML IV ×2 (02:52→08:50)
[2025-04-17 06:30] VITALS: BP 135/79; PULSE 72; RESP 16; TEMP 36.7; O2SAT 96
[2025-04-17 06:48] LABS: Hematocrit 31.3 % (40-54); Hemoglobin 10.3 g/dL (13.0-16.5); Immature Granulocytes Count 0.020 X10^3/uL (0.0-0.0); Mean Corp Hgb Conc 32.9 g/dL (32-36); Mean Corpuscular Volume 88.4 fL (80-94); Mean Platelet Vol. 10.1 fl (6.2-12.0); NRBC Flagged by Analyzer 0 % (0-5); Platelet Count 201 K/mm3 (150-450); RBC Distribution Width CV 12.2 % (11.6-14.6); RBC Distribution Width SD 39.8 fl (35.1-43.9); Red Blood Count 3.54 M/mm3 (4.6-6.2); White Blood Count 4.8 K/mm3 (4.4-11.0)
[2025-04-17 07:10] LABS: Anion Gap 11 (5-15); BUN 15 mg/dL (4-19); BUN/Creat Ratio 15.2 RATIO (10-20); Calcium,Total 8.8 mg/dL (7.6-11.0); Carbon Dioxide 19.1 mmol/L (21.0-32.0); Chloride 107 mmol/L (98-108); Estimated Creatinine Clearance 81.43 ml/min (50-250); Glucose 219 mg/dL (70-99); Potassium 3.8 mmol/L (3.3-5.1)
[2025-04-17 08:34] VITALS: BP 133/76; PULSE 76; RESP 16; TEMP 36.8; O2SAT 97
[2025-04-17] MEDS: Cefepime HCl 1 GM in 0.9% Normal Saline (50mL MB+) 50 ML IV ×2 (08:51→22:18)
[2025-04-17] MEDS: buPROPion (XL) 150 MG TABLET.XL PO (08:54)
[2025-04-17] MEDS: Vancomycin HCl 1,000 MG in 0.9% Normal Saline (250mL Bag) 250 ML 250 MG IV ×2 (10:57→23:36)
[2025-04-17 14:00] VITALS: BP 118/71; PULSE 74; RESP 16; TEMP 36.7; O2SAT 99
[2025-04-17 17:10] VITALS: BP 138/84
[2025-04-17 22:12] VITALS: BP 120/70; PULSE 73; RESP 16; TEMP 36.4; O2SAT 99
[2025-04-17] MEDS: 0.9% Saline Lock 10 ML Syringe IV (22:17)
[2025-04-17 23:16] LABS: Vancomycin, Trough Level 18.5 ug/mL (5.0-15.0)
[2025-04-18 02:50] VITALS: BP 137/82; PULSE 73; RESP 16; TEMP 36.6; O2SAT 99
== END 2025-04-18 02:54 | disposition short-term general hospital (02) | DRG 871 ==
LOC: ED 04-15 09:47 → MS3 04-15 12:13 → PCU 04-15 14:32
PROVIDERS: Internal Medicine Infectious Disease; Admitting Provider Student in an Organized Health Care Education/Training Program; Emergency Provider Emergency Medicine; PCP Internal Medicine; Visit Provider Student in an Organized Health Care Education/Training Program
DX: A41.9 Sepsis, unspecified organism (principal); N18.6 End stage renal disease; I13.2 Hypertensive heart and chronic kidney disease with heart failure and with stage 5 chronic kidney disease, or end stage renal disease; Z59.01 Sheltered homelessness; D84.9 Immunodeficiency, unspecified; N13.6 Pyonephrosis; N10 Acute pyelonephritis; Z94.0 Kidney transplant status; E11.22 Type 2 diabetes mellitus with diabetic chronic kidney disease; B96.83 Acinetobacter baumannii as the cause of diseases classified elsewhere; Z66 Do not resuscitate; F32.A Depression, unspecified; Z93.6 Other artificial openings of urinary tract status; E11.42 Type 2 diabetes mellitus with diabetic polyneuropathy; E11.65 Type 2 diabetes mellitus with hyperglycemia; E78.5 Hyperlipidemia, unspecified; I25.10 Atherosclerotic heart disease of native coronary artery without angina pectoris; Z79.4 Long term (current) use of insulin; I25.2 Old myocardial infarction; B95.62 Methicillin resistant Staphylococcus aureus infection as the cause of diseases classified elsewhere; B95.7 Other staphylococcus as the cause of diseases classified elsewhere; N15.9 Renal tubulo-interstitial disease, unspecified; Z79.52 Long term (current) use of systemic steroids; Z79.82 Long term (current) use of aspirin; Z79.899 Other long term (current) drug therapy; Z86.16 Personal history of COVID-19; Z87.891 Personal history of nicotine dependence
CPT/HCPCS: 36415; 71045; 74176; 80048; 80053; 80202; 81001; 82962; 83605; 85025; 85610; 85730; 87040; 87077; 87086; 87088; 87149; 87186; 93005; 93306; 97161; 97165; 99285; A4216; C8929

== ENCOUNTER 2025-05-16 13:48 | Inpatient (IN) | payer MEDICARE, MEDICAID, SELFPAY ==
[2025-05-16] VITALS (14 sets, daily range): BP systolic 79–143; BP diastolic 55–118; PULSE 107–139; RESP 14–29; TEMP 37.3–39.4; O2SAT 95–98; BMI 26.8; BMI 24.0
--- NOTE | 2025-05-16 14:07 | EKG12_ITS ---
Test Reason : HYPERGLCEMIA Blood Pressure : */* mmHG Vent. Rate : 132 BPM Atrial Rate : 132 BPM P-R Int : 168 ms QRS Dur : 104 ms QT Int : 312 ms P-R-T Axes : * -74 85 degrees QTcB Int : 462 ms Sinus tachycardia Left anterior fascicular block Minimal voltage criteria for LVH, may be normal variant ( [place] product ) Cannot rule out Septal infarct , age undetermined Abnormal ECG Confirmed by Jimenez Prince ([id number]), script editor JEANETTE MARQUEZ ([id number]) on 05/17/2025 9:50:52 AM Referred By: Confirmed By: Jimenez Prince
--- NOTE | 2025-05-16 14:10 | EDS_ITS ---
HPI History of Present Illness Chief Complaint: Hyperglycemia Narrative Narrative: Patient is a 54-year-old male presenting to the emergency department for hyperglycemia and coffee-ground emesis. Patient has a past medical history of type 2 diabetes, insulin-dependent, osteomyelitis, DKA, CAD, renal transplant recipient on cellcept. Patient states that 2 weeks ago he stopped taking his insulin. He states he does not have a way to go pick his insulin up despite has not been taking it. He has a glucose monitor that is reading high. Reports a dry cough, chills and nausea with 1 episode of coffee-ground emesis this morning. Denies any fever, sore throat, chest pain, shortness of breath, abdominal pain, dysuria, hematuria or diarrhea. Denies any bright red blood per rectum or melena. [facility] Medical History Staphylococcus aureus bacteremia Hydronephrosis with urinary obstruction due to ureteral calculus Acute on chronic renal insufficiency Acute pyelonephritis due to bacteria MRSA (methicillin resistant staph aureus) culture positive Anxiety Depression Diabetes Former smoker CPAP (continuous positive airway pressure) dependence Atrial fibrillation Myocardial infarct Congestive heart failure (CHF) Diabetic foot ulcer Gas gangrene of foot Necrotizing fasciitis Diabetic foot infection Type 2 diabetes mellitus with diabetic polyneuropathy Non-pressure chronic ulcer of other part of left foot with fat layer exposed Vision loss of left eye Respiratory failure Hypoxemia COVID-19 COVID-19 Type 2 diabetes mellitus with diabetic polyneuropathy Cellulitis of left lower limb Pulmonary edema Dyspnea Fistula (~12/2018) History of left heart catheterization (LHC) (~06/26/11) Atherosclerotic heart disease of [place] coronary artery without angina pectoris Essential hypertension Problem with dialysis access Chronic renal failure, stage 5 Vision problems Pneumonia Kidney stones Kidney failure Anasarca associated with disorder of kidney Autonomic neuropathy Hypoglycemia Acute hypoxemic respiratory failure Acute on chronic diastolic CHF (congestive heart failure) Retention, urine Obesity (BMI 30-39.9) Acute respiratory failure with hypoxia Hypokalemia Noncompliance Diabetic neuropathy Diabetic nephropathy Diabetic retinopathy ILDA (acute kidney injury) Hypertensive emergency Chewing tobacco nicotine dependence GERD (gastroesophageal reflux disease) Anxiety and depression Diabetes mellitus type II, uncontrolled Blind left eye HLD (hyperlipidemia) Right leg pain Chronic ulcer of 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 Cellulitis and abscess of right leg History of acute myocardial infarction Home Medications ?Medication ?Instructions ?Recorded ?Last Taken ?Type prednisone 5 mg tablet 5 mg PO DAILY steroid 03/10/25 History fluoxetine 10 mg capsule 10 mg PO DAILY 03/24/2410/03 History insulin lispro protamine-lispro See Rx Instructions paul bcut .tid 03/30/24 03/10/25 Rx 100 unit/mL (50-50) subcutaneous with meals #42 mL pen (Humalog Mix 50-50 KwikPen) mycophenolate sodium 180 mg 360 mg PO BID kidneys 01/0803/10/25 History tablet,delayed release sulfamethoxazole 400 1 tab PO MOWEFR 01/26/2511/03 History mg-trimethoprim 80 mg tablet carvedilol 12.5 mg tablet 12.5 mg PO BID 03/10/2511/03 History escitalopram oxalate 10 mg tablet 10 mg PO DAILY 03/1003/09/25 History aspirin 81 mg chewable tablet 1 tab PO DAILY 04/14/25 Unknown History bupropion HCl 150 mg 24 hr tablet, 150 mg PO DAILY 03/03 Unknown History extended release gabapentin 100 mg capsule 100 mg PO QHS 04/14/25 Unkno wn History Allergy/AdvReac Type Severity Reaction Status Date / Time No Known Allergies Allergy Verified 04/04/25 11:08 Family History Mother Heart disease Hypertension Father Cancer Brother Cancer Diabetes Sister Diabetes Other Alcohol abuse Depression H/O transfusion of whole blood Kidney disease Surgical History Kidney transplant recipient Renal transplant recipient Kidney replaced by transplant History of artificial lens replacement History of arteriovenostomy for renal dialysis (~08/2018) Status post insertion of dialysis catheter (~08/2018) History of appendectomy History of eye surgery History of cholecystectomy Social History household members: spouse Smoking Status: Never smoker second hand exposure: No alcohol intake: never substance use type: does not use caffeine: No what type of physical activity do you participate in: none ROS ROS ED ROS Narrative See HPI EXAM Physical Exam Narrative Exam Narrative: Vital signs: Reviewed General: Alert and oriented x 2. Disoriented to time. No acute distress. Chronically ill-appearing. HEENT: Head is normocephalic and atraumatic, sinuses nontender, pupils equal round and reactive. Nares are patent. Oropharynx and throat exams normal. Dry mucous membranes. Neck: Supple without lymphadenopathy nontender Cardiovascular: Tachycardic rate and regular rhythm, no murmurs. No rubs or gallops. Normal S1 and S2 Respiratory: Clear to auscultation bilaterally. No wheezes, rales, rhonchi. On room air saturating 96%. Abdominal: Soft and mildly tender to palpation in the upper abdomen in the epigastric and left upper quadrants. Normal bowel sounds. No guarding or rebound. Nonsurgical abdomen. Prior laparoscopic surgical scars with no evidence of infection. : Done with industrial maintenance electrician RN at bedside. No evidence of necrotizing fasciitis of the groin or buttocks. Extremities: No tenderness. No bruising. Normal range of motion. Normal sensation. Specifically the feet were examined for any diabetic ulcers or in fection. None seen. Skin: No rash or redness. Neurological: Cranial nerves II through XII are grossly intact. Normal strength and sensation. Normal cerebellar function The rest of the physical exam is unremarkable Const Vital Signs: 05/16/25 13:49 05/16/25 15:48 05/16/25 17:00 Temperature 99.1 F Temperature Source Oral Pulse Rate 121 H 139 H 128 H Respiratory Rate 14 26 H 20 H Blood Pressure 140/74 H 135/118 H 143/113 H Blood Pressure Mean 96 123 123 Pulse Ox 96 96 Oxygen Delivery Method Room Air Room Air 05/16/25 19:00 05/16/25 19:48 05/16/25 21:00 Temperature Temperature Source Pulse Rate 120 H 122 H Respiratory Rate 18 26 H Blood Pressure 83/60 L 101/55 L 79/56 L Blood Pressure Mean 67 70 63 Pulse Ox 97 98 Oxygen Delivery Method Room Air Room Air 05/16/25 21:15 05/16/25 21:31 05/16/25 22:00 Temperature Temperature Source Pulse Rate 118 H 114 H Respiratory Rate 27 H 28 H Blood Pressure 103/57 L 111/61 94/57 L Blood Pressure Mean 71 74 67 Pulse Ox 95 98 95 Oxygen Delivery Method 05/16/25 22:15 05/16/25 22:21 05/16/25 22:28 Temperature 101 F H 101 F H Temperature Source Oral Pulse Rate 116 H 116 H 116 H Respiratory Rate 29 H 29 H 24 H Blood Pressure 84/56 L 84/56 L 116/62 Blood Pressure Mean 65 65 80 Pulse Ox 95 95 98 Oxygen Delivery Method Room Air MDM MDM MDM Narrative Medical decision making narrative: Patient is a 54-year-old male presenting to the emergency department for hyperglycemia. Patient was seen and examined. He is tachycardic on [facility] with a stable BP of 140/74. He is afebrile. Saturating 96% on room air. Differential includes but is not limited to: HHS, DKA, hyperglycemia, underlying infection causing this including diabetic ulcers, nec fasc, pneumonia, UTI, URI Fluid bolus started. EKG shows sinus tach with a left anterior fascicular block. No STEMI criteria met. No dysrhythmia. CBC with no leukocytosis and hemoglobin 11.8. BMP with hyponatremia of 127. Bicarb of 17.3. Anion gap of 18. ILDA with BUN of 36 and creatinine of 2.22. Hyperglycemia of 983. Potassium of 4.4. Lipase within normal limits. Ketones are negative. VBG with no acidosis. Based on labs, likely HHS. Additional fluid bolus ordered. Insulin infusion started. Calculated serum osmolarity of 321 consistent with HHS. Urinalysis with evidence of urinary tract infection. CT shows an edematous appearing right renal transplant with moderately severe hydronephrosis despite the presence of an adequately positioned intraureteral draining stent, may indicate stent obstruction. 9 cm fluid collection anterior and extraneous to the urinary bladder worrisome for urinoma or other fluid collection. Gas within the urinary bladder to be correlated clinically for significance. Zosyn given based off the results. Spoke to [facility] given the patient is a renal transplant patient and they are seeing evidence of hydronephrosis of his transplanted kidney. I spoke to Dr. Wing, urology, at [facility] who recommended that we admit here. Urology here, Dr. Barrientos and our hospitalist Dr. Smith do not feel comfortable caring for this patient here and I am in agreement that the patient needs to be transferred to a higher level of care about his renal transplant history. Spoke to Dr. Cortez, MICU at [facility] who accepted the patient for transfer however they notified me that it would be about 24 to 48 hours before transfer for an open bed. Will admit to ICU here until bed is open. Admitted to Dr. Smith for further management here. While patient was here in emergency department he did become febrile, Tylenol given. Likely sepsis from his UTI. Already receiving appropriate fluid resuscitation and have already received Zosyn therefore blood cultures will not be obtained. Lactate added. Clinical impression: HHS UTI Esophagitis/gastritis Sepsis Hydronephrosis History & Record Review Discussion w/independent historian: Patient Lab Data Attestation: I reviewed the patient's lab results. Labs: Laboratory Results - last 24 hr 05/16/25 05/16/25 05/16/25 13:30 13:30 15:00 WBC Cancelled 10.1 Corrected WBC Cancelled RBC Cancelled 4.06 L Hgb Cancelled 11.8 L Hct Cancelled 37.6 L MCV Cancelled 92.6 MCH Cancelled 29.1 MCHC Cancelled 31.4 L RDW Std Deviation Cancelled 47.9 H RDW Coeff of Tomy Cancelled 14.0 Plt Count Cancelled 269 MPV Cancelled 9.1 Immature Gran % (Auto) Cancelled 0.600 Neut % (Auto) Cancelled 86.9 H Lymph % (Auto) Cancelled 6.2 L [place] % (Auto) Cancelled 6.1 Eos % (Auto) Cancelled 0.0 Baso % (Auto) Cancelled 0.2 Absolute Neuts (auto) Cancelled 8.8 H Absolute Lymphs (auto) Cancelled 0.63 L Total Counted Cancelled Neutrophils % (Manual) Cancelled Band Neutrophils % Cancelled Lymphocytes % (Manual) Cancelled Monocytes % (Manual) Cancelled Eosinophils % (Manual) Cancelled Basophils % (Manual) Cancelled Metamyelocytes % Cancelled Myelocytes % Cancelled Promyelocytes % Cancelled Blast Cells % Cancelled Plasma Cell % (Manual) Cancelled Other Cells % Cancelled Nucleated RBC % Cancelled 0 Nucleated RBCs/100 WBC Cancelled Differential Comment Cancelled Diff Path Review Cancelled Hypersegmented Neuts Cancelled Atypical Lymphocytes Cancelled Reactive Lymphocytes Cancelled Smudge Cells Cancelled Toxic Granulation Cancelled Toxic Vacuolation Cancelled Dohle Bodies Cancelled Leoncio Rods Cancelled Platelet Estimate Cancelled ADEQUATE Plt Morphology Comment Cancelled RBC Morphology Cancelled Cancelled NORM C+C Polychromasia Cancelled Hypochromasia Cancelled Basophilic Stippling Cancelled Anisocytosis Cancelled Microcytosis Cancelled Macrocytosis Cancelled Spherocytes Cancelled Sickle Cells Cancelled Target Cells Cancelled Tear Drop Cells Cancelled Ovalocytes Cancelled Stomatocytes Cancelled [place] Bodies Cancelled Kt Cells Cancelled Bite Cells Cancelled Crenated Cell Cancelled Acanthocytes (Spur) Cancelled Rouleaux Cancelled Schistocytes Cancelled Sodium 127 L Potassium 4.4 Chloride 92 L Carbon Dioxide 17.3 L Anion Gap 18 H BUN 36 H Creatinine 2.22 H Estim Creat Clear Calc 35.95 L Est GFR (MDRD) Non-Af 34 L BUN/Creatinine Ratio 16.3 Glucose 983 H* Serum Osmolality Calcium 9.4 Phosphorus 3.7 Magnesium 2.0 Total Bilirubin 0.72 AST 22 ALT 13 Alkaline Phosphatase 155 H Total Protein 7.6 Albumin 3.4 L Globulin 4.2 Albumin/Globulin Ratio 0.8 L Lipase 18 b-Hydroxybutyric mmol/L 0.1 Urine Color Urine Clarity Urine pH Ur Specific [place] Urine Protein Urine Glucose (UA) Urine Ketones Urine Occult Blood Urine Nitrite Urine Bilirubin Urine Urobilinogen Ur Leukocyte Esterase Urine RBC Urine WBC Ur Squamous Epith Cells Urine Bacteria Urine Mucus POC Glucose 05/16/25 05/16/25 05/16/25 16:05 18:00 18:15 WBC Corrected WBC RBC Hgb Hct MCV MCH MCHC RDW Std Deviation RDW Coeff of Tomy Plt Count MPV Immature Gran % (Auto) Neut % (Auto) Lymph % (Auto) [place] % (Auto) Eos % (Auto) Baso % (Auto) Absolute Neuts (auto) Absolute Lymphs (auto) Total Counted Neutrophils % (Manual) Band Neutrophils % Lymphocytes % (Manual) Monocytes % (Manual) Eosinophils % (Manual) Basophils % (Manual) Metamyelocytes % Myelocytes % Promyelocytes % Blast Cells % Plasma Cell % (Manual) Other Cells % Nucleated RBC % Nucleated RBCs/100 WBC Differential Comment Diff Path Review Hypersegmented Neuts Atypical Lymphocytes Reactive Lymphocytes Smudge Cells Toxic Granulation Toxic Vacuolation Dohle Bodies Leoncio Rods Platelet Estimate Plt Morphology Comment RBC Morphology Polychromasia Hypochromasia Basophilic Stippling Anisocytosis Microcytosis Macrocytosis Spherocytes Sickle Cells Target Cells Tear Drop Cells Ovalocytes Stomatocytes [place] Bodies Kt Cells Bite Cells Crenated Cell Acanthocytes (Spur) Rouleaux Schistocytes Sodium 134 Potassium 5.2 H Chloride 100 Carbon Dioxide 17.9 L Anion Gap 15 BUN Creatinine Estim Creat Clear Calc Est GFR (MDRD) Non-Af BUN/Creatinine Ratio Glucose 665 H* Serum Osmolality 342 H Calcium Phosphorus 1.7 L Magnesium 2.1 Total Bilirubin AST ALT Alkaline Phosphatase Total Protein Albumin Globulin Albumin/Globulin Ratio Lipase b-Hydroxybutyric mmol/L Urine Color Yellow Urine Clarity Clear Urine pH 6.0 Ur Specific [place] 1.010 Urine Protein 30 H Urine Glucose (UA) 1000 H Urine Ketones Negative Urine Occult Blood 150 H Urine Nitrite Negative Urine Bilirubin Negative Urine Urobilinogen Normal Ur Leukocyte Esterase 100 H Urine RBC 0-5 SEEN Urine WBC 10-25 SEEN Ur Squamous Epith Cells 0 SEEN Urine Bacteria 3+ Urine Mucus 0 SEEN POC Glucose > 500 H* 05/16/25 05/16/25 05/16/25 20:02 21:07 22:02 WBC Corrected WBC RBC Hgb Hct MCV MCH MCHC RDW Std Deviation RDW Coeff of Tomy Plt Count MPV Immature Gran % (Auto) Neut % (Auto) Lymph % (Auto) [place] % (Auto) Eos % (Auto) Baso % (Auto) Absolute Neuts (auto) Absolute Lymphs (auto) Total Counted Neutrophils % (Manual) Band Neutrophils % Lymphocytes % (Manual) Monocytes % (Manual) Eosinophils % (Manual) Basophils % (Manual) Metamyelocytes % Myelocytes % Promyelocytes % Blast Cells % Plasma Cell % (Manual) Other Cells % Nucleated RBC % Nucleated RBCs/100 WBC Differential Comment Diff Path Review Hypersegmented Neuts Atypical Lymphocytes Reactive Lymphocytes Smudge Cells Toxic Granulation Toxic Vacuolation Dohle Bodies Leoncio Rods Platelet Estimate Plt Morphology Comment RBC Morphology Polychromasia Hypochromasia Basophilic Stippling Anisocytosis Microcytosis Macrocytosis Spherocytes Sickle Cells Target Cells Tear Drop Cells Ovalocytes Stomatocytes [place] Bodies Kt Cells Bite Cells Crenated Cell Acanthocytes (Spur) Rouleaux Schistocytes Sodium Potassium Chloride Carbon Dioxide Anion Gap BUN Creatinine Estim Creat Clear Calc Est GFR (MDRD) Non-Af BUN/Creatinine Ratio Glucose Serum Osmolality Calcium Phosphorus Magnesium Total Bilirubin AST ALT Alkaline Phosphatase Total Protein Albumin Globulin Albumin/Globulin Ratio Lipase b-Hydroxybutyric mmol/L Urine Color Urine Clarity Urine pH Ur Specific [place] Urine Protein Urine Glucose (UA) Urine Ketones Urine Occult Blood Urine Nitrite Urine Bilirubin Urine Urobilinogen Ur Leukocyte Esterase Urine RBC Urine WBC Ur Squamous Epith Cells Urine Bacteria Urine Mucus POC Glucose 420 H 282 H 195 H ABG Data ABG results: ABG 05/16/25 14:36 Specimen Type ANTHONY Sample Site Not entered VBG pH 7.43 H VBG pO2 53 H VBG HCO3 21 L VBG Total CO2 22 L VBG O2 Sat (Calc) 88 H VBG Base Excess -3 L POC Mix VBG pCO2 Pt Tmp 32.2 L O2 Delivery Device Not entered Radiography Diagnostic Testing: Clinical Impression(s) from Imaging Studies Abdomen/Pelvis CT 05/16/25 16:08 IMPRESSION: Gastroesophageal findings to be correlated clinically are discussed above in de tail. - Edematous appearing right renal transplant with moderately severe hydronephrosis despite the presence of an adequately positioned intraureteral draining stent, may indicate stent obstruction. 9 cm fluid collection anterior and extraneous to the urinary bladder worrisome for urinoma or other fluid collection. Gas within the urinary bladder to be correlated clinically for significance. Genitourinary findings discussed above in detail. - Multiple other findings and study limitations discussed above. Reading Location: [id number] Chest X-Ray 05/16/25 16:30 IMPRESSION: NO ACUTE FINDINGS. Reading [facility] Discharge Plan Triage Chief Complaint: Hyperglycemia ED Provider: Kiara Suresh Dx/Rx/DC Orders Prescriptions: No Action fluoxetine 10 mg capsule 10 mg PO DAILY prednisone 5 mg Tablet 5 mg PO DAILY sulfamethoxazole-trimethoprim 400-80 mg tablet 1 tab PO MOWEFR mycophenolate sodium 180 mg tablet,delayed release (DR/EC) 360 mg PO BID carvedilol 12.5 mg tablet 12.5 mg PO BID escitalopram oxalate 10 mg tablet 10 mg PO DAILY aspirin 81 mg tablet,chewable 1 tab PO DAILY gabapentin 100 mg capsule 100 mg PO QHS bupropion HCl 150 mg tablet extended release 24 hr 150 mg PO DAILY Humalog Mix 50-50 KwikPen 100 unit/mL (50-50) insulin pen See Rx Instructions subcut .tid with meals Qty: 42 5RF Rx Instructions: 40-40-60 units subcutaneously TID WITH MEALS; Primary Care Provider: Zaida Mcneil Referrals: Zaida Mcneil MD [Primary Care Provider] - Print Language: Croatian
[2025-05-16] MEDS: 0.9% Normal Saline (1000mL) 1,000 ML 1000 ML IV ×2 (14:18→15:55)
--- OUTSIDE RECORDS SUMMARY | 2025-05-16 14:28 | XMS RPT_ITS | CCD ---
Author Organization [facility] [place] [facility] Care Team Providers Care Drawing In Machine Tender Helper Name Role Phone Ewa NORTON, Zaida Primary Care Provider iDnesh Vick DO, Christine Unavailable Heena Adams Unavailable Satish Phan MD Unavailable Dr. Zaida Gaston Primary Care Provider 1([facility])[phone] Dr. Toni Nelson Emergency Provider 1([facility])[phone] Henry Padilla Admit Provider 1([facility])[phone] Henry Padilla Attending Provider Dr. Henry Padilla Other Provider 1([facility])[phone] Shruti Jara Attending Provider Dr. Shruti Jara Other Provider 1([facility])[phone] Zaida Gaston Primary Care Provider 1([facility])[phone] Dr. Zaida Gaston Referring Provider 1([facility])[phone] Vj Cabral Attending Provider 1([facility])[phone] Dr. Toni Nelson Emergency Provider 1([facility])[phone] Isamar Smith Admit Provider Dr. Isamar Smith Referring Provider 1([facility])[phone] Dr. Isamar Smith Other Provider 1([facility])[phone] John Darnell Other Provider Dr. Joao Hayes Attending Provider 1([facility])[phone] Joao Hayes Other Provider Dr. [...] Heena Adams Unavailable Satish Phan MD Unavailable [facility], [place] Unavailable Dr. Zaida Gaston Primary Care Provider Dr. Waleska Phan Attending Provider Dr. Dona Medina Referring Provider Dr. Dona Medina Other Provider Ashli FAMILY RESOURCE MANAGEMENT PROFESSOR, FAMILY RESOURCE MANAGEMENT PROFESSOR-C Suzanne E Attending Provider Ashli FAMILY RESOURCE MANAGEMENT PROFESSOR, FAMILY RESOURCE MANAGEMENT PROFESSOR-C Suzanne E Referring Provider Aureliano FAMILY RESOURCE MANAGEMENT PROFESSOR, FAMILY RESOURCE MANAGEMENT PROFESSOR-C Jenna Attending Provider Aureliano FAMILY RESOURCE MANAGEMENT PROFESSOR, FAMILY RESOURCE MANAGEMENT PROFESSOR-C Jenna Referring Provider Dr. Mayo Levy Referring Provider Dr. Kerrie Henderson Attending Provider Dr. Zaida Gaston Referring Provider Amanda ROCHA, AJ Schaefer Attending Provider LAISHA Meza Attending Provider Dinesh Vick DO, Christine Unavailable Dr. Zaida Gaston Primary Care Provider Dr. Zaida Gaston Primary Care Provider Dr. Dona Medina Other Provider Ashli FAMILY RESOURCE MANAGEMENT PROFESSOR, FAMILY RESOURCE MANAGEMENT PROFESSOR-C Suzanne E Attending Provider [phone] Ashli FAMILY RESOURCE MANAGEMENT PROFESSOR, FAMILY RESOURCE MANAGEMENT PROFESSOR-C Suzanne E Referring Provider [phone] Dr. Chuy Santiago Emergency Provider Dr. Mayo Levy Admit Provider Dr. Mayo Levy Other Provider Delmy Billy Other Provider Unavailable Dr. Amy Ureña Other Provider Dr. William Hayes Other Provider Dr. Kerrie Henderson Other Provider Dr. Awa Martínez Other Provider Bladimir FAMILY RESOURCE MANAGEMENT PROFESSOR, FAMILY RESOURCE MANAGEMENT PROFESSOR-C Vivian Other Provider Unavail justin Funes FAMILY RESOURCE MANAGEMENT PROFESSOR, FAMILY RESOURCE MANAGEMENT PROFESSOR-C John Other Provider AJ Josue Other Provider [...] Provider Dr. Awa Martínez Other Provider Bladimir FAMILY RESOURCE MANAGEMENT PROFESSOR, FAMILY RESOURCE MANAGEMENT PROFESSOR-C Vivian Other Provider Unavail able Shantel FAMILY RESOURCE MANAGEMENT PROFESSOR, FAMILY RESOURCE MANAGEMENT PROFESSOR-C John Other Provider AJ Josue Other Provider Unavailable Dr. Satish Nava Other Provider Dr. Shruti Jara Attending Provider [phone] Tylor Rudd Attending Provider Dr. Zaida [...] Gaston Referring Provider LAISHA Meza Attending Provider tSephen POSADAS, CUAUHTEMOC-C Yissel Attending Provider Zaida Gaston MD Primary Care Provider Hedervary 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.Alana POWELL Unavailable AMARA SLOAN Attending Unavailable NIA JAMES Referring Unavailable ZAIDA GASTON Primary Care Unavailable Xiang Perez PA-C Unavailable Older 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.Delia POWELL Unavailable Bogner PA-C, Amber Unavailable Ewa NORTON, Dr. Cerda Primary Care Provider Ewa NORTON, Dr. Cerda Referring Provider King CIERRA, Dr. Wilson Attending Provider Will CLAIRE, Dr. Bhakta Referring Provider Will CLAIRE, Dr. Bhakta Emergency Provider Ewa NORTON, Dr. Cerda Primary Care Provider Will CLAIRE, Dr. Bhakta Attending Provider Provider , Leona Unavailable Unavailable Leslie CLAIRE, Dr. Muñoz Emergency Provider [facility], [place] Unavailable Leslie CLAIRE, Dr. Muñoz Attending Provider Dr. Byron Saldana DO Emergency Provider Ewa NORTON, Dr. Cerda Primary Care Provider Will CLAIRE, Dr. Bhakta Attending Provider Will CLAIRE, Dr. Bhakta Emergency Provider Dr. Byron Saldana DO Attending Provider Jack NORTON, Dr. Vera Emergency Provider Dr. Chuy Santiago MD Attending Provider Marek NORTON, Dr. Shruti Brandon Admit Provider [phone] Marek NORTON, Dr. Shruti Brandon Attending Provider Ewa NORTON, Dr. Cerda Primary Care Provider Dr. Yony Solis DO Attending Provider Dr. Yony Solis DO Emergency Provider Leslie CLAIRE, Dr. Muñoz Attending Provider Dr. Toni Nelson DO Emergency Provider Dr. Byron Saldana DO Attending Provider Dr. Byron Saldana DO Emergency Provider Jack NORTON, Dr. Vera Attending Provider Jack NORTON, Dr. Vera Emergency Provider Marek NORTON, Dr. Shruti Brandon Admit Provider Marek NORTON, Dr. Shruti Brandon Attending Provider Brandy NORTON, Dr. Covarrubias Other Provider Marek NORTON, Dr. Shruti Brandon Other Provider Mark NORTON, Dr. Qiu Attending Provider Ganta, Zaida Primary Care Unavailable Le, Yony Referring Unavailable Le, Yony Attending Unavailable Satish Nava Consulting Unavailable Koram, Shruti Roma Admitting Unavailable Koram, Shruti Roma Attending Unavailable Ganta, Zaida Primary Care Unavailable Ganta, Zaida Primary Care Unavailable Le, Yony Attending Unavailable Ganta, Zaida Primary Care Unavailable Satish Nava Consulting Unavailable Koram, Shruti Roma Admitting Unavailable Koram, Shruti Roma Attending Unavailable Koram, Shruti Roma Consulting Unavailable Ganta, Zaida Referring Unavailable Ladarius, Steve Attending Unavailable Ganta, Zaida Primary Care Unavailable Ganta, Zaida Referring Unavailable Ganta, Zaida Primary Care Unavailable Ladarius, Steve Attending Unavailable Ganta, Zaida Referring Unavailable Ganta, Zaida Primary Care Unavailable Ladarius, Steve Attending Unavailable Anila Flores Attending Unavailable Ganta, Zaida Primary Care Unavailable Ganta, Zaida Referring Unavailable Ganta, Zaida Primary Care Unavailable Yissel Willis Attending Unavailable Ganta, Zaida Primary Care Unavailable UngToni brock Attending Unavailable Byron Saldana Attending Unavailable Ganta, Zaida Primary Care Unavailable Santiago, Chuy Attending Unavailable Ganta, Zaida Primary Care Unavailable Provider Leona NORTON Unavailable Unavailable VENCES MARIZA Attending Unavailable BEVERLEY, TRENA Referring Unavailable GANTA, ZAIDA Primary Care Unavailable SANTIAGO, CHUY Referring Unavailable GANTA, ZAIDA Primary Care Unavailable TRAKROO, SUSHRUT Admitting Unavailable SOWUNMI, RICH Attending Unavailable GANTA, ZAIDA Attending Unavailable GANTA, ZAIDA Primary Care Unavailable GANTA, ZAIDA Attending Unavailable GANTA, ZAIDA Primary Care Unavailable DELIA KAUFMAN Attending Unavailable GANTA, ZAIDA Primary Care Unavailable DONA MARTINEZ Admitting Unavailable DONA MARTINEZ Attending Unavailable [facility], ZAIDA Primary Care Unavailable STACITA, ZAIDA Referring Unavailable GANTA, ZAIDA Primary Care Unavailable ZAIDA GASTON Attending Unavailable [facility], ZAIDA Primary Care Unavailable [facility] Primary Care Unavailable YONY SOLIS Referring Unavailable [facility], ZAIDA Primary Care Unavailable CARLOS ANNE Admitting Unavailable SHANA CANTOR Attending Unavaila ble Medications Current Medications Medication Drug Class(es) Dates Sig (Normalized) Sig (Original) >Compression Knee Highs 30-40 mm (20 sources) Start: 11-26-2017 >Compression Knee Highs 30-40 mm KNEE HIGH COMPRESSION STOCKINGS, 30-40 MM, I DX: EDEMA 1 Each 1 11/26/2017 Active Comment on above: KNEE HIGH COMPRESSIO N STOCKINGS, 30-40 MM, I DX: EDEMA acetaminophen 325 mg oral tablet (20 sources) Start: 05-02-2025 End: 05-14-2025 take 2 tablets by mouth every six hours as needed acetaminophen (TYLENOL) 325 mg tablet Take 2 tablets by mouth every 6 hours as needed for pain for up to 10 days. 30 tablet 05/02/2025 11:27 AM EDT 05/02/2025 05/14/2025 Active Start: 11-01-2022 End: 03-10-2025 Start: 11-01-2022 take 2 tablets by mo [...] 26, 2018 8:49pm Start: 12-17-2017 End: 01-20-2018 Start: 12-17-2017 End: 01-20-2018 take 2 tablets [...] 1000 mg bid for pain / aches apixaban 2.5 mg oral tablet (1 source) Factor Xa Inhibitor Start: 09-20-2021 take 1 tablet by mouth twice daily Apixaban (Eliquis) 2.5 mg tablet Active 2.5 MG PO TWICE A DAY September 20, 2021 1:27pm aspirin 81 mg chewable tablet (20 sources) Platelet Aggregation Inhibitor, Nonsteroidal Anti-inflammatory Drug Start: 04-14-2025 Start: 11-01-2022 End: 03-10-2025 Start: 08-21-2018 End: 03-15-2026 take 1 tablet by mouth once daily aspirin 81 mg chewable tablet chew and swallow 1 tablet by mouth once daily. 90 tablet 3 03/15/2025 03/15/2026 Active Start: 11-19-2017 End: 12-26-2017 Start: 11-19-2017 End: 12-26-2017 take 1 tablet [...] Active Comment on above: Glucose Meter of Cho ice, One Touch Verio preferred - Kit - Dx E11.8 Insulin Dependent, Test blood sugar three times a day Blood-Glucose Meter,Continuous (DEXCOM G6 HEAVY MACHINERY OPERATOR) misc (16 sources) Start: 05-18-20 Blood-Glucose Meter,Continuous (DEXCOM G6 HEAVY MACHINERY OPERATOR) misc Indications: Diabetic polyneuropathy associated with type [...] 1 03/15/2025 Active Start: 07-13-2024 End: 03-15-2025 Start: 03-24-2024 End: 03-10-2025 Start: 08-28-2023 End: 03-10-2025 take 1 tablet by mouth once daily buPROPion (WELLBUTRIN) 75 mg tablet Indications: Moderate episode of recurrent major depressive disorder (HCC) Take 1 tablet by mouth once daily. 90 tablet 3 07/13/2024 Suspended Start: 02-25-2023 End: 08-19-2023 take 1 tablet [...] tablet 3 07/13/2024 Active Start: 10-09-2021 End: 03-24-2024 Start: 09-18-2021 Bupropion Hcl (Wellbutrin Xl) 150 mg Tablet Extended Release 24 Hr Active 300 MG PO DAILY September 18, 2021 12:00am Start: 08-26-2018 End: 08-11-2020 Comment on above: Take 1 tablet by [...] 1 01/28/2025 Active Start: 01-26-2025 End: 03-10-2025 Start: 12-08-2021 End: 01-22-2024 Comment on above: Take 1 tablet by jermaine th twice daily. Cholestyramine, Bulk, powd (20 sources) Start: 12-30-2024 take 1 g by mouth once daily Cholestyramine, Bulk, powd Take one(1) scoop dissolved in two(2) to six(6) ounces(oz) of fluid by mouth daily. 1 g 1 12/30/2024 Suspended Start: 12-30-2024 take 1 g by mouth [...] mg oral tablet (1 source) Corticosteroid Start: take 6 mg by mouth once daily Dexamethasone Active 6 MG PO DAILY September 20, 2021 1:21pm ergocalciferol 1.25 mg oral capsule (20 sources) Provitamin D2 Compound Start: take 1 capsule by mouth every week ergocalciferol 50,000 unit capsule (VITAMIN D2, DRISDOL) Take 1 capsule by mouth one time a week. 12 capsule 07/22/2023 Active Comment on above: Take 1 capsule by [facility] one time a week. escitalopram 10 mg oral tablet (20 sources) Serotonin Reuptake Inhibitor Start: take 1 tablet by mouth once daily escitalopram oxalate (LEXAPRO) 10 mg tablet Take 1 tablet by mouth once daily. 30 tablet 5 02/05/2025 Active FLUoxetine 10 mg oral capsule (20 sources) Serotonin Reuptake Inhibitor Start: 024 End: fluticasone propionate 0.05 mg/actuat metered dose nasal [...] capsule (20 sources) Anti-epileptic Agent Start: End: 026 take 1 capsule by mouth once daily at bedtime gabapentin (NEURONTIN) 100 mg capsule Indications: Diabetic polyneuropathy associated with type 2 diabetes mellitus (HCC) Take 1 capsule by mouth daily at bedtime for 180 days. 30 capsule 5 04/08/2025 10/05/2025 Active Start: 11-22-2021 End: 04-05-2025 Start: 07-15-2013 End: 08-11-2020 Comment on above: Take 1 capsule by [facility] daily at bedtime for 180 days. glucagon 3 mg nasal powder (20 sources) Antihypoglycemic Agent Start: 03-30-2021 glucagon 3 mg/actuation nasal spray (BAQSIMI) Use 1 [place] in the nose as needed for low blood sugar. May repeat after 15 minutes using a new device if there is no response. 3 Each 1 03/30/2021 Active Start: 03-30-2021 End: 08-23-2022 glucagon (GLUCAGON EMERGENCY KIT, HUMAN,) 1 mg injection Inject (1)one mg for insulin shock. 3 Each 1 03/30/2021 08/23/2022 Discontinued Comment on above: Use 1 [place] in the n ose as needed for low blood sugar. May repeat after 15 minutes using a new device if there is no response. Inject (1)one mg for insulin shock. 3 ml insulin lispro 50 unt/ml / insulin lispro protamine, human 50 unt/ml pen injector (20 sources) Insulin Analog Start: 05-02-20 inject 15 [IU] by subcutaneous injection once daily at breakfast, then inject 15 [IU] by subcutaneous injection once daily at lunch, then inject 15 [IU] by subcutaneous injection once daily at dinner insulin 50/50 lispro protamine-lispro units/mL (HUMALOG MIX 50-50 KWIKPEN) 100 unit/mL (50-50) pen Indications: Type 1 diabetes mellitus on insulin therapy (HCC) Inject 15 Units subcutaneously daily with breakfast AND 15 Units daily with lunch AND 15 Units daily with dinner. 123 mL 3 05/02/2025 Active Start: 03-08-2025 inject 46 [IU] by paul bcutaneous injection once daily at breakfast, then inject [...] daily with dinner. 123 mL 3 03/08/2025 Suspended Start: 03-24-2024 End: 03-30-2024 Insulin Lispro Protamin-Lisp ro (Humalog Mix 50-50 Kwikpen) 100 unit/mL (50-50) insulin pen Active 0 SC .tid with meals 42 5 March 30, 2024 2:28pm Type 2 diabetes mellitus with hyperglycemia Type 2 diabetes mellitus with hyperglycemia [facility] (current) use of insulin 40-40-60 units subcutaneously TID WITH MEALS; Start: 03-14-2023 End: 03-08-2025 insulin 50/50 lispro protamine-lispro units/mL (HUMALOG MIX [...] March 24, 2024 11:57am Start: 01-14-2023 End: 03-30-2024 inject 46 [IU] by subcutaneous injection once [...] dinner. 123 mL 3 03/08/2025 Active Start: 01-14-2023 End: 03-14-2023 Insulin Lispro Protamin-Lisp ro (Humalog Mix 50-50 Kwikpen) 100 unit/mL (50-50) insulin pen Discontinued 45 U SC .tidcm 40.5 5 January 14, 2023 12:00am March 14, 2023 12:35am Type 2 diabetes mellitus with hyperglycemia Type 2 diabetes mellitus with hyperglycemia Comment on above: Inject 30 Units subc utaneously daily at bedtime. lidocaine 0.04 mg/mg medicated patch (3 sources) Antiarrhythmic, Amide Local Anesthetic Start: 05-02-20 End: 05-14-20 lidocaine (SALONPAS) 4 % patch Apply 2 patches as directed once daily for 10 days. on for 12 hours off for 12 hours. 20 patch 05/02/2025 11:27 AM EDT 05/02/2025 05/14/2025 Active loperamide hydrochloride 2 mg oral capsule (20 sources) Opioid Agonist Start: 11-26-19 take 1 capsule by mouth every six hours as needed for diarrhea and diarrhea loperamide (IMODIUM) 2 mg cap(s) Indications: Diarrhea, unspecified type Take 1 capsule by mouth four times a day as needed. 90 capsule 1 11/26/2023 Active Comment on above: Take 1 capsule by mo [facility] four times a day as needed. losartan potassium 25 mg oral tablet (20 sources) Angiotensin 2 Receptor Silvana Start: 09-05-20 End: 03-10-20 take 2 tablets by mouth once daily [...] 1 tablet by jermaine th once daily. TAKE 1 TABLET BY JERMAINE ONCE DAILY MEDICAL SUPPLY (20 sources) Start: 10-03-2021 MEDICAL SUPPLY D/C oxygen 1 Each 10/03/2021 Active Start: 10-03-2021 MEDICAL SUPPLY D/C oxygen 1 Each 0 10/03/2021 Active Comment on above: D/C oxygen methocarbamol 500 mg oral tablet (4 sources) Muscle Relaxant Start: End: take 1 tablet by mouth three times daily methocarbamol (ROBAXIN) 500 mg tablet Take 1 tablet by mouth three times a day. 90 tablet 05/02/2025 11:27 AM EDT 05/02/2025 06/01/2025 Active mycophenolic acid 180 mg delayed release oral tablet (20 sources) Antimetabolite Immunosuppressant Start: 025 End: take 2 tablets by mouth twice daily mycophenolate sodium DR (MYFORTIC) 180 mg EC tablet TAKE TWO TABLETS BY MOUTH 2 TIMES A DAY 120 tablet 11 02/11/2025 Active Start: 01-13-2024 take 2 tablets by mo ut twice daily mycophenolate sodium DR (MYFORTIC) 180 [...] region of the penis polyethylene glycol 3350 185257 mg / potassium chloride 2970 mg / sodium bicarbonate 6740 mg / sodium chloride 5860 mg / sodium sulfate 06449 mg powder for oral solution (1 source) Osmotic Laxative Start: 2023 End: 2023 peg 3350-Electrolytes (GOLYTELY) 236-22.74-6.74 -5.86 gram suspension Indications: Diarrhea, unspecified type Take 4,000 mL by mouth one time only for 1 dose. Refer to printed prep instructions from your provider. 4000 mL 0 03/24/2024 03/24/2024 Active predniSONE 5 mg oral tablet (20 sources) Start: 2020 End: 2023 take 1 tablet by mouth once daily predniSONE (DELTASONE) 5 mg tablet Take 1 tablet by mouth once daily. 30 tablet 11 07/28/2024 Active Comment on above: Take 1 tablet by jermaine once daily. pseudoephedrine hydrochloride 30 mg oral tablet (20 sources) alpha-Adrenergic Agonist Start: 2022 pseudoephedrine (SUDAFED) 30 mg tablet Take Four 4 (30 mg) Tablets for an erection lasting more than 2 hours. If not improved in 1 hour MUST go to ER 12 tablet 1 08/20/2023 Active Comment on above: Take Four 4 (30 mg) Tablets for an erection lasting more than 2 hours. If not improved in 1 hour MUST go to ER tacrolimus 1 mg oral capsule (20 sources) Calcineurin Inhibitor Immunosuppressant Start: 2024 take 1 capsule by mouth twice daily [...] 09/24/2022 10/11/2023 Discontinued Start: 09-18-2021 End: 03-10-2025 Start: 09-18-2021 take 1 tablet by jermaine th once daily, then take 1 mg by mouth every twenty-four hours Tacrolimus (Envarsus Xr) 1 mg tablet extended release 24 hr Active 2 mg PO DAILY September 18, 2021 1:00am Comment on above: Take 2 tablets by mo uth once daily. Take 1 tablet by jemraine th once daily. take two tablets by mouth once daily Take 3 tablets by mo uth once daily. tamsulosin hydrochloride 0.4 mg oral capsule (20 sources) alpha-Adrenergic Silvana Start: 05-02-2025 End: 07-01-2025 take 1 capsule by mouth once daily tamsulosin (FLOMAX) 0.4 mg Take 1 capsule by mouth once daily. 30 capsule 1 05/02/2025 11:27 AM EDT 05/02/2025 07/01/2025 Active Start: 12-06-2017 End: 01-20-2018 trospium chloride 20 mg oral tablet (4 sources) Cholinergic Muscarinic Antagonist Start: 05-02-2025 End: 07-01-2025 take 1 tablet by mouth twice daily before mealtime trospium (SANCTURA) 20 mg tablet Take 1 tablet by mouth two times a day before meals. 60 tablet 1 05/02/2025 11:27 AM EDT 05/02/2025 07/01/2025 Active Completed/Discontinued Medications Medication Drug Class(es) Dates Sig (Normalized) Sig (Original) acetaminophen 325 mg / HYDROcodone bitartrate 5 mg oral tablet (20 sources) Opioid Agonist Start: 08-08-2018 End: 08-10-2018 Start: 08-08-2018 End: 08-10-2018 Hydrocodone-Acetaminophen 1 TABLET tablet Discontinued 1 {tbl} PO EVERY 6 HOURS NEEDED as needed for Pain 5 2 August 08, 2018 1:00am August 09, 2018 [...] 2 PUFF INHALATION EVERY 4 HOURS NEEDED 1 December 06, 2017 2:11pm February 19, 2018 4:41pm Start: 12-06-2017 End: 02-19-2018 Albuterol Sulfate 1 INHALER inhaler Discontinued 2 NMA INHALATION EVERY 4 HOURS NEEDED as needed for Sob &/Or Wheezing 1 December 06, 2017 12:00am February 19, 2018 4:41pm Acute respiratory failure with hypoxia Acute respiratory failure with hypoxia Start: 12-06-2017 End: 02-19-2018 Albuterol Sulfate 1 INHALER inhaler Discontinued 2 NMA INHALATION EVERY 4 HOURS NEEDED as needed for Sob &/Or Wheezing 1 December 06, 2017 12:00am February 19, 2018 [...] 07/05/2022 Discontinued (Course of therapy completed) Start: 08-26-2018 End: 08-29-2018 take 1 tablet by mouth once daily Amlodipine 5 MG tablet Discontinued 5 mg PO DAILY August 26, 2018 9:01pm August 29, 2018 12:33pm BP Start: 08-25-2018 End: 08-26-2018 take 2 tablets by mouth once daily Amlodipine 5 MG tablet Discontinued 10 mg PO DAILY 30 August 25, 2018 6:06pm August 26, 2018 9:02pm BP Start: 03-02-2018 End: 08-29-2018 take 10 mg by mouth once daily Amlodipine Active 10 MG PO DAILY 0 August 29, 2018 12:33pm Start: 03-02-2018 End: 08-25-2018 take 1 tablet by mouth once daily Amlodipine 5 MG tablet Discontinued 5 mg PO DAILY March 02, 2018 12:00am August 25, 2018 6:06pm BP Start: 05-06-2017 End: 12-14-2017 Start: 05-06-2017 End: 12-14-2017 take 1 tablet by mouth once daily Amlodipine 5 MG tablet Discontinued 5 mg PO DAILY May 06, 2017 12:00am December 14, 2017 6:02pm blood pressure Comment on above: Take 1 tablet by jermaine th once daily. amoxicillin 500 mg / clavulanate 125 mg oral tablet (20 sources) Penicillin-class Antibacterial Start: 12-26-2021 End: 01-19-2022 Start: 12-26-2021 End: 01-19-2022 Amoxicillin-Pot Clavulanate (Augmentin) 500-125 mg tablet Discontinued 1 {tbl} PO TWICE A DAY 20 December 26, 2021 12:00am January 19, 2022 10:42am ampicillin 2000 mg / sulbactam 1000 mg injection (20 sources) Penicillin-class Antibacterial, beta Lactamase Inhibitor Start: 03-27-2022 End: 08-17-2022 atenolol 100 mg oral tablet (12 sources) beta-Adrenergic Silvana Start: 03-14-2023 End: 03-10-2025 Start: 11-28-2017 End: 12-08-2021 take 1 tablet by mouth once daily atenolol (TENORMIN) 100 mg tablet Take 1 tablet by mouth once daily. 90 tablet 3 09/27/2021 12/08/2021 Discontinued Comment on above: Take 1 tablet by jermaine th once daily. atorvastatin 20 mg oral tabl et (20 sources) HMG-CoA Reductase Inhibitor Start: 09-18-2021 End: 09-06-2022 Start: 07-13-2021 End: 09-06-2022 take 1 tablet by mouth at bedtime Atorvastatin (Lipitor) 20 mg Tablet Discontinued 20 mg PO AT BEDTIME September 18, 2021 1:00am September 06, 2022 11:27am cholesterol Comment on above: Take 1 tablet by jermaine at bedtime as needed. calcium chloride 0.0014 meq/ml / potassium chloride 0.004 meq/ml / sodium chloride 0.103 meq/ml / sodium lactate 0.028 meq/ml injectable solution (1 source) Start: 04-01-2024 End: 04-01-2024 lactated ringers iv infusion cefepime 1000 mg injection (20 sources) Cephalosporin Antibacterial Start: 10-08-2019 End: 11-17-2019 Start: 10-08-2019 End: 11-17-2019 Cefepime 1 GM recon soln Dis continued 2 g IV DIRECTED October 08, 2019 [...] Mon, 2gm on Sat, 3gm on Sat cephalexin 500 mg oral capsu le (20 sources) Cephalosporin Antibacterial Start: 03-10-2025 End: 04-14-2025 Start: 10-19-2021 End: 12-08-2021 take 1 capsule by mouth three times daily cephALEXin (KEFLEX) 500 mg capsule Take 1 capsule by mouth three times daily. 45 capsule 1 10/19/2021 12/08/2021 Discontinued Start: 10-01-2019 End: 10-08-2019 Start: 05-06-2017 End: 05-29-2017 Comment on above: Take 1 capsule by mo [facility] three times daily. cholecalciferol 0.025 mg ora l capsule (20 sources) Vitamin D Start: 12-26-2021 End: 03-10-2025 Start: 12-26-2021 End: 03-10-2025 Cholecalciferol (Vitamin D3) (Vitamin D3) 25 mcg (1,000 unit) Capsule Discontinued 25 ug PO FR December 26, 2021 12:00am March 10, 2025 2:14pm SUPPLEMENT' End: 07-22-2023 take 1 tablet by mouth every twenty-four hours cholecalciferol (VITAMIN D3) 1,000 unit tab tablet Take 1 tablet by mouth q 24 HR. 0 07/22/2023 Discontinued Comment on above: Take 1 tablet by [facility] q 24 HR. ciprofloxacin 500 mg oral ta blet (20 sources) Quinolone Antimicrobial Start: 11-05-2022 End: 01-14-2023 Start: 12-22-2017 End: 01-20-2018 docusate sodium 100 mg oral capsule (20 sources) Start: 09-18-2021 End: 01-26-2025 doxycycline hyclate 100 mg o ral capsule (20 sources) Tetracycline-class Drug Start: 11-05-2022 End: 01-14-2023 Start: 12-26-2021 End: 01-19-2022 Dulaglutide (20 sources) GLP-1 Receptor Agonist Start: 07-17-2024 End: 03-10-2025 Start: 07-17-2024 End: 03-10-2025 Dulaglutide (Trulicity) 4.5 mg/0.5 mL pen injector Discontinued 4.5 mg SC EVERY WEEK 6 July 17, 2024 1:32pm March 10, 2025 2:14pm Start: 07-17-2024 Dulaglutide (T rulicity) 4.5 mg/0.5 mL pen injector Active 4.5 mg SC EVERY WEEK 6 July 17, 2024 1:32pm Start: 03-24-2024 End: 07-17-2024 Start: 03-24-2024 End: 07-17-2024 Dulaglutide (Trulicity) 4.5 mg/0.5 mL pen injector Discontinued 4.5 mg SC EVERY WEEK 6 March 24, 2024 12:00am July 17, 2024 1:33pm Start: 03-24-2024 End: 07-17-2024 Dulaglutide (Trulicity) 4.5 mg/0.5 mL pen injector Discontinued 4.5 mg SC EVERY WEEK 6 March 24, 2024 12:00am July 17, 2024 1:33pm Start: 01-02-2024 End: 03-24-2024 Start: 01-02-2024 End: 03-24-2024 Dulaglutide (Trulicity) 3 [...] 02, 2024 12:00am Start: 07-25-2023 End: 01-02-2024 Start: 07-25-2023 End: 01-02-2024 Dulaglutide (Trulicity) 1.5 mg/0.5 mL pen injector Discontinued 1.5 mg SC EVERY WEEK 2 3 October 24, 2023 11:57am January 02, 2024 11:08am Type 2 diabetes mellitus with hyperglycemia Type 2 diabetes mellitus with hyperglycemia Start: 04-25-2023 End: 07-25-2023 Comment on above: Inject 0.75 mg subcu taneously one time a week. furosemide 40 mg oral tablet (20 sources) Loop Diuretic Start: 2 End: 2 take 1 tablet by mouth once daily furosemide (LASIX) 40 mg tablet Take 1 tablet by mouth once daily. 60 tablet 2 10/19/2021 12/08/2021 Discontinued Start: 08-25-2018 End: 10-06-2019 Start: 08-21-2018 End: 08-25-2018 Start: 02-19-2018 End: 07-11-2018 Furosemide 40 mg tablet Disc ontinued 20 mg PO TWICE A DAY February 19, 2018 4:28pm July 11, 2018 9:01am Start: 02-19-2018 End: 07-11-2018 take 20 mg by mouth twice daily Furosemide Discontinue d 20 MG PO TWICE A DAY February 19, 2018 4:28pm July 11, 2018 9:01am Start: 12-14-2017 End: 01-20-2018 take 1 tablet by mouth twice daily, then take 0.5 tablet by mouth twice daily Furosemide Discontinued 60 MG PO TWICE DAILY December 14, 2017 12:00am January 20, 2018 4:41pm 1 and 1/2 tablets twice a day. Start: 12-06-2017 End: 07-11-2018 Start: 12-06-2017 End: 02-19-2018 take 1 tablet by mouth twice daily, then take 0.5 tablet by mouth twice daily Furosemide 40 MG tablet Discontinued 60 mg PO TWICE DAILY 90 0 December 14, 2017 12:00am January 20, 2018 4:41pm 1 and 1/2 tablets twice a day. Start: 11-28-2017 End: 12-05-2017 Start: 11-28-2017 End: 12-05-2017 take 1 tablet by mouth once daily Furosemide 20 MG tablet Discontinued 20 mg PO DAILY November 28, 2017 12:00am December 05, 2017 11:04am diuretic Comment on above: Take 1 tablet by jermaine th once daily. hydrALAZINE hydrochloride 25 mg oral tablet (20 sources) Arteriolar Vasodilator Start: 07-11-2018 End: 10-06-2019 hydroCHLOROthiazide 25 mg or al tablet (20 sources) Thiazide Diuretic Start: 11-28-2017 End: 12-05-2017 Start: 05-06-2017 End: 11-21-2017 3 ml insulin aspart, human 1 00 unt/ml pen injector (20 sources) Insulin Analog Start: 03-02-2018 End: 08-25-2018 Start: 12-17-2017 End: 12-17-2017 Start: 12-17-2017 End: 12-17-2017 Insulin Aspart U-100 [...] December 14, 2017 6:56pm Start: 12-05-2017 End: 08-25-2018 inject 10-14 [IU] by subcutaneous injection three times daily at mealtime Insulin Aspart U-100 100 UNITS/ML insulin pen Discontinued 10 - 14 U SQ 3 TIMES DAILY WITH MEALS March 02, 2018 12:02pm August 25, 2018 5:40pm bloodsugar Start: 12-05-2017 End: 12-17-2017 Insulin Aspart U-100 100 UNI TS/ML insulin pen Discontinued 0 U SC BEFORE MEALS AND AT BEDTIME 0 December 05, 2017 12:00am December 17, 2017 10:05am Please contact the information source for Protocol details. Start: 11-21-2017 End: 12-14-2017 Insulin Aspart U-100 100 UNI TS/ML insulin pen Discontinued 15 U SC 3 TIMES DAILY WITH MEALS 1 0 December 06, 2017 2:09pm December 14, 2017 6:56pm DM Start: 11-21-2017 End: 11-28-2017 Insulin Aspart U-100 Discont inued 15 UNITS SC 3 TIMES DAILY WITH MEALS 15 March 15th, 2018 7:57am November 28, 2017 12:18pm Start: 05-06-2017 End: 12-17-2017 Start: 05-06-2017 End: 11-21-2017 Insulin Aspart U-100 [...] August 11, 2020 2:04pm Start: 10-08-2019 End: 01-14-2023 Start: 10-08-2019 End: 08-11-2020 inject 8 [IU] [...] 11, 2018 9:01am Start: 12-17-2017 End: 12-17-2017 Start: 12-17-2017 End: 12-17-2017 Insulin Glargine (Lantus [...] 06, 2017 2:09pm DM Start: 07-15-2013 End: 10-08-2019 Start: 07-15-2013 End: 12-05-2017 Insulin Glargine (Lantus [...] 06, 2019 10:31am Start: 08-25-2018 End: 01-14-2023 Comment on above: INJECT 10 UNITS D [...] (20 sources) Angiotensin Converting Enzyme Inhibitor Start: 11-28-2017 End: 12-05-2017 Start: 11-21-2017 End: 12-05-2017 take 2 tablets by mouth once daily Lisinopril 20 MG tablet Discontinued 40 mg PO DAILY November 28, 2017 11:02am December 05, 2017 11:05am BP Start: 11-21-2017 End: 11-28-2017 take 1 tablet by mouth once daily Lisinopril 20 MG tablet Discontinued 20 mg PO DAILY 30 0 November 21, 2017 12:00am November 28, 2017 11:02am Start: 05-06-2017 End: 11-21-2017 metoclopramide 5 mg oral tablet (7 sources) Dopamine-2 Receptor Antagonist Start: 11-19-2024 End: 03-10-2025 metoprolol tartrate 25 mg oral tablet (20 sources) beta-Adrenergic Silvana Start: 11-19-2017 End: 11-21-2017 metroNIDAZOLE 500 mg oral tablet (20 sources) Nitroimidazole Antimicrobial Start: 10-08-2019 End: 11-17-2019 mycophenolate mofetil 250 mg oral capsule (20 [...] 18, 2021 10:50am Start: 09-18-2021 End: 09-24-2022 Comment on above: Take 2 capsules by [...] above: Take 1 tablet by jermaine th every 8 hours as needed for Nausea/Vomiting. [...] extended release oral capsule (20 sources) Start: 11-28-2017 End: 12-05-2017 Semaglutide (9 sources) Start: 04-17-2023 End: 04-25-2023 Start: 04-17-2023 End: 04-25-2023 Semaglutide (Ozempic) 0.25 [...] April 25, 2023 7:48am for 4 weeks sulfamethoxazole 800 mg / trimethoprim 160 mg oral tablet (20 sources) Dihydrofolate Reductase Inhibitor Antibacterial, Sulfonamide Antimicrobial Start: 03-10-2025 End: 04-14-2025 Start: 03-10-2025 End: 04-14-2025 Sulfamethoxazole-Trimethopri m 800-160 mg tablet Discontinued 1 {tbl} PO TWICE A DAY 14 0 March 10, 2025 12:00am April 14, 2025 5:24pm Start: 01-26-2025 Start: 09-11-2023 End: 09-28-2024 take 1 tablet by mouth once sulfamethoxazole-trimethoprim (BACTRIM) 400-80 mg per tablet Take 1 tablet by mouth every Saturday, Saturday, and Saturday. 12 tablet 09/28/2024 Active Start: 03-20-2023 take 1 tablet by jermaine th once sulfamethoxazole-trimethoprim (BACTRIM) 400-80 mg per tablet Take 1 tablet by mouth every Saturday,Saturday,Saturday. 12 tablet 11 03/20/2023 Active Start: 09-05-2022 End: 03-24-2024 Start: 09-05-2022 take 1 tablet by jermaine [...] jermaine th every Saturday, Saturday, and Saturday. tiZANidine 2 mg oral tablet (20 sources) Central alpha-2 Adrenergic Agonist Start: 05-06-2017 End: 05-29-2017 traMADol hydrochloride 50 mg oral tablet (20 sources) Opioid Agonist Start: 05-06-2017 End: 05-29-2017 200 ml vancomycin 5 mg/ml injection (20 sources) Glycopeptide Antibacterial Start: 03-27-2022 End: 08-17-2022 Start: 10-08-2019 End: 11-17-2019 (1 source) Start: 12-06-2017 End: 02-19-2018 Problems Active Problems Problem Classification Problem Date Documented Date Episodic/Chronic Administrative/social admission (5 sources) Homeless; Translations: [Homeless] Onset: 04-18-2025 04-18-2025 Episodic Anxiety disorders (20 sources) Mixed anxiety and depressive disorder; Translations: [Anxiety disorder, unspecified] Chronic Blindness and vision defects (20 sources) Blind left eye; Translations: [Blindness, one eye, unspecified eye] Chronic Calculus of urinary tract (20 sources) History of calculus of kidney; Translations: [Personal history of urinary calculi] Onset: 09-30-2014 09-30-2014 Episodic Cardiac dysrhythmias (20 sources) Ectopic beats; Translations: [...] Chronic Complication of device; implant or graft (20 sources) Dialysis finding; Translations: [Other specified complication of vascular prosthetic devices, implants and grafts, initial encounter] Onset: 01-27-2025 Resolved: 01-29-2025 10-27-2020 Chronic Complication of device; implant or graft (1 source) Leakage of nephrostomy catheter, initial encounter; Translations: [Leakage of nephrostomy catheter, initial encounter] Onset: 02-14-2025 Episodic Complications of surgical procedures or medical care (5 sources) Ostomy patient problem; Translations: [Malfunction of [...] mellitus without complications] Onset: 03-23-2021 03-23-2021 Chronic Disorders of lipid metabolism (20 sources) Hyperlipidemia; Translations: [Other hyperlipidemia] Onset: 04-17-2006 05-19-2018 Chronic Esophageal disorders (20 sources) Gastroesophageal reflux disease; Translations: [Gastro-esophageal reflux disease without esophagitis] Onset: 09-28-2024 12-11-2018 Chronic Essential hypertension (20 sources) Hypertensive disorder; Translations: [Essential (primary) hypertension] Onset: 04-17-2006 09-14-2016 Chronic Genitourinary symptoms and ill-defined conditions (20 sources) Lower urinary tract symptoms; Translations: [Unspecified symptoms and signs involving the genitourinary system] Onset: 09-30-2014 09-30-2014 Episodic Hypertension with complications and secondary hypertension (20 [...] lesser toe, initial encounter] Chronic Other aftercare (4 sources) Patient encounter status; Translations: [Other terminal operations supervisor (current) drug therapy] Episodic Other aftercare (1 source) Taking high risk medication; Translations: [Other terminal operations supervisor (current) drug therapy] 07-25-2023 Episodic Other aftercare (1 source) Post-discharge follow-up; Translations: [Encounter for follow-up examination after completed treatment for conditions other than malignant neoplasm] 02-05-2025 Episodic Other aftercare (1 source) Other penitentiary (current) drug therapy; Translations: [Medication management] Onset: 03-08-2025 Episodic Other bone disease and musculoskeletal deformities (12 sources) History of amputation of left foot; [...] Episodic Other diseases of kidney and ureters (7 sources) Renal impairment; Translations: [Disorder of kidney and ureter, unspecified] 11-19-2024 Episodic Other diseases of kidney and ureters (5 sources) Hydronephrosis with renal and ureteral calculous obstruction; Translations: [Hydronephrosis with urinary obstruction due to ureteral calculus] Onset: 04-24-2025 04-14-2025 Episodic Other diseases of kidney and ureters (3 sources) Chronic renal insufficiency; Translations: [Disorder of kidney and ureter, unspecified] 04-14-2025 Episodic Other diseases of kidney and ureters (1 source) Disorder of kidney and ureter, unspecified; Translations: [Disorder of kidney and ureter, unspecified] Onset: 04-19-2025 Episodic Other diseases of kidney and ureters (1 source) Crossing vessel and stricture of ureter without hydronephrosis; Translations: [Ureteral stricture] Onset: 04-18-2025 Episodic Other diseases of veins and lymphatics (20 sources) Lymphedema of right lower limb; Translations: [Lymphedema, not elsewhere classified] 05-03-2021 Chronic Other endocrine disorders (16 sources) Hypoglycemia; Translations: [Hypoglycemia, unspecified] 09-05-2022 Chronic Other hematologic conditions (2 sources) Secondary polycythemia; Translations: [Secondary polycythemia] Episodic Other injuries and conditions due to external causes (2 sources) Systemic inflammatory response syndrome; Translations: [Systemic inflammatory response syndrome (SIRS) of non-infectious origin without acute organ dysfunction] 04-14-2025 Episodic Other liver diseases (1 source) Enzyme level - finding; Translations: [Transaminitis] Episodic Other liver diseases (1 source) Alkaline phosphatase raised; Translations: [Abnormal levels of other serum enzymes] 05-21-2023 Episodic Other liver diseases (9 sources) Elevated liver enzymes level; Translations: [Abnormal [...] and idiopathic peripheral neuropathy] 10-24-2023 Chronic Other nervous system disorders (2 sources) Disorder of brain; Translations: [Other encephalopathy] 04-14-2025 Chronic Other nervous system disorders (3 sources) Paresthesia of skin; Translations: [Paresthesia of both hands] 04-04-2025 Episodic Other nutritional; endocrine; and metabolic disorders (20 sources) Body mass index 30+ - obesity; Translations: [Obesity, unspecified] 12-11-2018 Chronic Other nutritional; endocrine; and metabolic disorders (13 sources) Obesity, unspecified; Translations: [Obesity, unspecified] Chronic Other nutritional; endocrine; and metabolic disorders (10 sources) Overweight; Translations: [Overweight] 07-25-2023 Episodic Other screening for suspected conditions (not mental disorders or infectious disease) (8 sources) Pseudohyponatremia; Translations: [Other specified abnormal findings of blood chemistry] 04-04-2025 Episodic Peripheral and visceral atherosclerosis (1 source) [...] (20 sources) Sepsis; Translations: [Sepsis, unspecified organism] Onset: 04-26-2025 Episodic Skin and subcutaneous tissue infections (20 [...] reviewing the office note prior to saving. Unclassified (1 source) Autogenerated Problem Onset: 04-21-2025 04-21-2025 Viral infection (1 source) Viral wart on finger; Translations: [Viral wart, unspecified] Episodic Past or Other Problems Problem Classification Problem Date Documented Da te Episodic/Chronic Acute and unspecified renal failure (20 sources) Injury of kidney; Translations: [Acute kidney failure, unspecified] Onset: 01-27-2025 Resolved: 01-29-2025 Episodic Bacterial infection; unspecified site (20 sources) Gas gangrene of foot; Translations: [Gas gangrene] Onset: 04-18-2025 Resolved: 05-02-2025 Episodic Conditions associated with dizziness or vertigo (8 sources) Vertigo; Translations: [Dizziness and giddiness] Onset: 11-30-2024 11-19-2024 Episodic Diabetes mellitus without complication (20 sources) Hyperglycemia; Translations: [Hyperglycemia, unspecified] Onset: 02-05-2025 Episodic Fluid and electrolyte disorders (20 sources) Hypokalemia; Translations: [Hypokalemia] Onset: 01-28-2025 Resolved: 05-02-2025 Episodic Nausea and vomiting (20 sources) Nausea; Translations: [Nausea] Onset: 11-15-2017 11-15-2017 Episodic Other aftercare (20 sources) Transplant follow-up; Translations: [Other terminal operations supervisor (current) drug therapy] Onset: 01-27-2025 Episodic Other aftercare (20 sources) Long-term current use of tacrolimus; Translations: [Encounter for therapeutic drug level monitoring] Onset: 01-27-2025 01-27-2025 Episodic Other aftercare (1 source) director long term care (current) use of insulin; Translations: [director long term care (current) use of insulin] Onset: 07-28-2024 Episodic Other aftercare (1 source) Encounter for follow-up examination after completed treatment for conditions other than malignant neoplasm; Translations: [Hospital discharge follow-up] Onset: 02-05-2025 Episodic Other circulatory disease (7 sources) Personal [...] Episodic Other diseases of kidney and ureters (20 sources) Hydronephrosis; Translations: [Unspecified hydronephrosis] Onset: 01-27-2025 Resolved: 01-29-2025 01-29-2025 Episodic Other diseases of kidney and ureters (1 source) Unspecified hydronephrosis; Translations: [Hydronephrosis, unspecified hydronephrosis type] Onset: 01-29-2025 Episodic Other gastrointestinal disorders (20 sources) [...] source) Overweight; Translations: [Overweight] Onset: 04-30-2024 Episodic Urinary tract infections (19 sources) Urinary tract infectious disease; Translations: [Urinary tract infection, site not specified] Onset: 04-18-2025 Resolved: 05-02-2025 01-26-2025 Episodic Results Test Name Value Interpretation Reference Range Facility Basic Metabolic Profile (BMP )on 04-20-2025 BUN Normal 4-19 [facility] Comment on above: Result Comment: Canc elled via OM: Order cancelled - Patient discharged Performed By: #### L [id number] #### [facility] [address] [place], [address] BUN/CRE Normal 10-20 [facility] Comment on above: Result Comment: Canc elled via OM: Order cancelled - Patient discharged Performed By: #### L [id number] #### [facility] [address] [place], [address] Calcium Normal 7.6-11.0 [facility] Comment on above: Result Comment: Canc elled via OM: Order cancelled - Patient discharged Performed By: #### L [id number] #### [facility] [address] [place], [address] CL Normal 98-108 [facility] Comment on above: Result Comment: Canc elled via OM: Order cancelled - Patient discharged Performed By: #### L [id number] #### [facility] [address] [place], [address] CO2 Normal 21.0-32.0 [facility] Comment on above: Result Comment: Canc elled via OM: Order cancelled - Patient discharged Performed By: #### L 500.2500 #### [facility] [address] [place], [address] CREAT,SERUM Normal 0.70-1.20 [facility] Comment on above: Result Comment: Canc elled via OM: Order cancelled - Patient discharged Performed By: #### L [id number] #### [facility] [address] [place], [address] eGFR Normal >60 [facility] Comment on above: Result Comment: Canc elled via OM: Order cancelled - Patient discharged Performed By: #### L 500.2500 #### [facility] [address] [place], [address] GAP Normal 5-15 [facility] Comment on above: Result Comment: Canc elled via OM: Order cancelled - Patient discharged Performed By: #### L [id number] #### [facility] [address] [place], [address] GLU Normal 70-99 [facility] Comment on above: Result Comment: Canc elled via OM: Order cancelled - Patient discharged Performed By: #### L 500.2500 #### [facility] [address] [place], [address] Potassium Normal 3.3-5.1 [facility] Comment on above: Result Comment: Canc elled via OM: Order cancelled - Patient discharged Performed By: #### L 500.2500 #### [facility] [address] [place], [address] Basic Metabolic Profile (BMP) Normal 133-145 [facility] Comment on above: Result Comment: Canc elled via OM: Order cancelled - Patient discharged Performed By: #### L 500.2500 #### [facility] [address] [place], [address] CBC W/Diff, Automatedon 08-1 Absolute Neut Normal 2.0-7.7 [facility] Comment on above: Result Comment: Canc elled via OM: Order cancelled - Patient discharged Performed By: #### L [id number] #### [facility] [address] [place], [address] HCT Normal 40-54 [facility] Comment on above: Result Comment: Canc elled via OM: Order cancelled - Patient discharged Performed By: #### L [id number] #### [facility] [address] [place], [address] HGB Normal 13.0-16.5 [facility] Comment on above: Result Comment: Canc elled via OM: Order cancelled - Patient discharged Performed By: #### L 500.2500 #### [facility] [address] [place], [address] MCH Normal 27.0-32.0 [facility] Comment on above: Result Comment: Canc elled via OM: Order cancelled - Patient discharged Performed By: #### L 500.2500 #### [facility] [address] [place], [address] MCHC Normal 32-36 [facility] Comment on above: Result Comment: Canc elled via OM: Order cancelled - Patient discharged Performed By: #### L [id number] #### [facility] [address] [place], [address] MCV Normal 80-94 [facility] Comment on above: Result Comment: Canc elled via OM: Order cancelled - Patient discharged Performed By: #### L 500.2500 #### [facility] [address] [place], [address] NEUT% Normal 47-70 [facility] Comment on above: Result Comment: Canc elled via OM: Order cancelled - Patient discharged Performed By: #### L [id number] #### [facility] [address] [place], [address] PLT Normal 150-450 [facility] Comment on above: Result Comment: Canc elled via OM: Order cancelled - Patient discharged Performed By: #### L 500.2500 #### [facility] [address] [place], [address] RBC Normal 4.6-6.2 [facility] Comment on above: Result Comment: Canc elled via OM: Order cancelled - Patient discharged Performed By: #### L 500.2500 #### [facility] [address] [place], [address] RDW CV Normal 11.6-14.6 [facility] Comment on above: Result Comment: Canc elled via OM: Order cancelled - Patient discharged Performed By: #### L [id number] #### [facility] [address] [place], [address] RDW SD Normal 35.1-43.9 [facility] Comment on above: Result Comment: Canc elled via OM: Order cancelled - Patient discharged Performed By: #### L [id number] #### [facility] [address] [place], [address] WBC Normal 4.4-11.0 [facility] Comment on above: Result Comment: Canc elled via OM: Order cancelled - Patient discharged Performed By: #### L 500.2500 #### [facility] [address] [place], [address] Culture, Blood (WB)on 2024 CUB Blood cultures x2, f rom two different sites No growth in 5 days. Normal [facility] Comment on above: Performed By: #### L 500.2500, L100.0100 #### [facility] [address] [place], [address] Basic Metabolic Profile (BMP )on 04-19-2025 BUN Normal 4-19 [facility] Comment on above: Result Comment: Canc elled via OM: Order cancelled - Patient discharged Performed By: #### L 500.2500, L100.0100 #### [facility] [address] [place], [address] BUN/CRE Normal 10-20 [facility] Comment on above: Result Comment: Canc elled via OM: Order cancelled - Patient discharged Performed By: #### L 500.2500, L100.0100 #### [facility] [address] [place], [address] Calcium Normal 7.6-11.0 [facility] Comment on above: Result Comment: Canc elled via OM: Order cancelled - Patient discharged Performed By: #### L 500.2500, L100.0100 #### [facility] [address] [place], [address] CL Normal 98-108 [facility] Comment on above: Result Comment: Canc elled via OM: Order cancelled - Patient discharged Performed By: #### L 500.2500, L100.0100 #### [facility] [address] [place], [address] CO2 Normal 21.0-32.0 [facility] Comment on above: Result Comment: Canc elled via OM: Order cancelled - Patient discharged Performed By: #### L 500.2500, L100.0100 #### [facility] [address] [place], [address] CREAT,SERUM Normal 0.70-1.20 [facility] Comment on above: Result Comment: Canc elled via OM: Order cancelled - Patient discharged Performed By: #### L 500.2500, L100.0100 #### [facility] [address] [place], [address] eGFR Normal >60 [facility] Comment on above: Result Comment: Canc elled via OM: Order cancelled - Patient discharged Performed By: #### L 500.2500, L100.0100 #### [facility] [address] [place], [address] GAP Normal 5-15 [facility] Comment on above: Result Comment: Canc elled via OM: Order cancelled - Patient discharged Performed By: #### L 500.2500, L100.0100 #### [facility] [address] [place], [address] GLU Normal 70-99 [facility] Comment on above: Result Comment: Canc elled via OM: Order cancelled - Patient discharged Performed By: #### L 500.2500, L100.0100 #### [facility] [address] [place], [address] Potassium Normal 3.3-5.1 [facility] Comment on above: Result Comment: Canc elled via OM: Order cancelled - Patient discharged Performed By: #### L 500.2500, L100.0100 #### [facility] [address] [place], [address] Basic Metabolic Profile (BMP) Normal 133-145 [facility] Comment on above: Result Comment: Canc elled via OM: Order cancelled - Patient discharged Performed By: #### L 500.2500, L100.0100 #### [facility] [address] [place], [address] CBC W/Diff, Automatedon - Absolute Neut Normal 2.0-7.7 [facility] Comment on above: Result Comment: Canc elled via OM: Order cancelled - Patient discharged Performed By: #### L 500.2500, L100.0100 #### [facility] [address] [place], [address] HCT Normal 40-54 [facility] Comment on above: Result Comment: Canc elled via OM: Order cancelled - Patient discharged Performed By: #### L 500.2500, L100.0100 #### [facility] [address] [place], [address] HGB Normal 13.0-16.5 [facility] Comment on above: Result Comment: Canc elled via OM: Order cancelled - Patient discharged Performed By: #### L 500.2500, L100.0100 #### [facility] [address] [place], [address] MCH Normal 27.0-32.0 [facility] Comment on above: Result Comment: Canc elled via OM: Order cancelled - Patient discharged Performed By: #### L 500.2500, L100.0100 #### [facility] [address] [place], [address] MCHC Normal 32-36 [facility] Comment on above: Result Comment: Canc elled via OM: Order cancelled - Patient discharged Performed By: #### L 500.2500, L100.0100 #### [facility] [address] [place], [address] MCV Normal 80-94 [facility] Comment on above: Result Comment: Canc elled via OM: Order cancelled - Patient discharged Performed By: #### L 500.2500, L100.0100 #### [facility] [address] [place], [address] NEUT% Normal 47-70 [facility] Comment on above: Result Comment: Canc elled via OM: Order cancelled - Patient discharged Performed By: #### L 500.2500, L100.0100 #### [facility] [address] [place], [address] PLT Normal 150-450 [facility] Comment on above: Result Comment: Canc elled via OM: Order cancelled - Patient discharged Performed By: #### L 500.2500, L100.0100 #### [facility] [address] [place], [address] RBC Normal 4.6-6.2 [facility] Comment on above: Result Comment: Canc elled via OM: Order cancelled - Patient discharged Performed By: #### L 500.2500, L100.0100 #### [facility] [address] [place], [address] RDW CV Normal 11.6-14.6 [facility] Comment on above: Result Comment: Canc elled via OM: Order cancelled - Patient discharged Performed By: #### L 500.2500, L100.0100 #### [facility] [address] [place], [address] RDW SD Normal 35.1-43.9 [facility] Comment on above: Result Comment: Canc elled via OM: Order cancelled - Patient discharged Performed By: #### L 500.2500, L100.0100 #### [facility] [address] [place], [address] WBC Normal 4.4-11.0 [facility] Comment on above: Result Comment: Canc elled via OM: Order cancelled - Patient discharged Performed By: #### L 500.2500, L100.0100 #### [facility] [address] [place], [address] Basic Metabolic Profile (BMP )on 04-18-2025 BUN Normal 4-19 [facility] Comment on above: Result Comment: Canc elled via OM: Order cancelled - Patient discharged Performed By: #### L 500.2500, L100.0100 #### [facility] [address] [place], [address] BUN/CRE Normal 10-20 [facility] Comment on above: Result Comment: Canc elled via OM: Order cancelled - Patient discharged Performed By: #### L 500.2500, L100.0100 #### [facility] [address] [place], [address] Calcium Normal 7.6-11.0 [facility] Comment on above: Result Comment: Canc elled via OM: Order cancelled - Patient discharged Performed By: #### L 500.2500, L100.0100 #### [facility] [address] [place], [address] CL Normal 98-108 [facility] Comment on above: Result Comment: Canc elled via OM: Order cancelled - Patient discharged Performed By: #### L 500.2500, L100.0100 #### [facility] [address] [place], [address] CO2 Normal 21.0-32.0 [facility] Comment on above: Result Comment: Canc elled via OM: Order cancelled - Patient discharged Performed By: #### L 500.2500, L100.0100 #### [facility] [address] [place], [address] CREAT,SERUM Normal 0.70-1.20 [facility] Comment on above: Result Comment: Canc elled via OM: Order cancelled - Patient discharged Performed By: #### L 500.2500, L100.0100 #### [facility] [address] [place], [address] eGFR Normal >60 [facility] Comment on above: Result Comment: Canc elled via OM: Order cancelled - Patient discharged Performed By: #### L 500.2500, L100.0100 #### [facility] [address] [place], [address] GAP Normal 5-15 [facility] Comment on above: Result Comment: Canc elled via OM: Order cancelled - Patient discharged Performed By: #### L 500.2500, L100.0100 #### [facility] [address] [place], [address] GLU Normal 70-99 [facility] Comment on above: Result Comment: Canc elled via OM: Order cancelled - Patient discharged Performed By: #### L 500.2500, L100.0100 #### [facility] [address] [place], [address] Potassium Normal 3.3-5.1 [facility] Comment on above: Result Comment: Canc elled via OM: Order cancelled - Patient discharged Performed By: #### L 500.2500, L100.0100 #### [facility] [address] [place], [address] Basic Metabolic Profile (BMP) Normal 133-145 [facility] Comment on above: Result Comment: Canc elled via OM: Order cancelled - Patient discharged Performed By: #### L 500.2500, L100.0100 #### [facility] [address] [place], [address] CBC W/Diff, Automatedon 08-1 0-2024 Absolute Neut Normal 2.0-7.7 [facility] Comment on above: Result Comment: Canc elled via OM: Order cancelled - Patient discharged Performed By: #### L 500.2500, L100.0100 #### [facility] [address] [place], [address] HCT Normal 40-54 [facility] Comment on above: Result Comment: Canc elled via OM: Order cancelled - Patient discharged Performed By: #### L 500.2500, L100.0100 #### [facility] [address] [place], [address] HGB Normal 13.0-16.5 [facility] Comment on above: Result Comment: Canc elled via OM: Order cancelled - Patient discharged Performed By: #### L 500.2500, L100.0100 #### [facility] [address] [place], [address] MCH Normal 27.0-32.0 [facility] Comment on above: Result Comment: Canc elled via OM: Order cancelled - Patient discharged Performed By: #### L 500.2500, L100.0100 #### [facility] [address] [place], [address] MCHC Normal 32-36 [facility] Comment on above: Result Comment: Canc elled via OM: Order cancelled - Patient discharged Performed By: #### L 500.2500, L100.0100 #### [facility] [address] [place], [address] MCV Normal 80-94 [facility] Comment on above: Result Comment: Canc elled via OM: Order cancelled - Patient discharged Performed By: #### L 500.2500, L100.0100 #### [facility] [address] [place], [address] NEUT% Normal 47-70 [facility] Comment on above: Result Comment: Canc elled via OM: Order cancelled - Patient discharged Performed By: #### L 500.2500, L100.0100 #### [facility] [address] [place], [address] PLT Normal 150-450 [facility] Comment on above: Result Comment: Canc elled via OM: Order cancelled - Patient discharged Performed By: #### L 500.2500, L100.0100 #### [facility] [address] [place], [address] RBC Normal 4.6-6.2 [facility] Comment on above: Result Comment: Canc elled via OM: Order cancelled - Patient discharged Performed By: #### L 500.2500, L100.0100 #### [facility] [address] [place], [address] RDW CV Normal 11.6-14.6 [facility] Comment on above: Result Comment: Canc elled via OM: Order cancelled - Patient discharged Performed By: #### L 500.2500, L100.0100 #### [facility] [address] [place], [address] RDW SD Normal 35.1-43.9 [facility] Comment on above: Result Comment: Canc elled via OM: Order cancelled - Patient discharged Performed By: #### L 500.2500, L100.0100 #### [facility] [address] [place], [address] WBC Normal 4.4-11.0 [facility] Comment on above: Result Comment: Canc elled via OM: Order cancelled - Patient discharged Performed By: #### L 500.2500, L100.0100 #### [facility] [address] [place], [address] Culture, Blood (WB)on 08-10- 2025 CUB No growth in 5 days. Normal [facility] Comment on above: Performed By: #### L 500.2500, L100.0100 #### [facility] [address] [place], [address] Urine Cultureon 04-18-2025 [facility] Copy of report sent to Infection Control Printer [id number] 04/18/2527 KOBE. Urine Culture Urine Culture Urine Culture Acinetobacter baumannii Priddy Count >100,000 Meth. resistant Staph. aureus Meth. resistant Staph. aureus mecA Testing not performed * This is an amended result. * A prior result that was reported as final has been changed. 04/18/25927 by KOBE * This is an amended result. * A prior result that was reported as final has been changed. 04/18/25927 by KOBE Acinetobacter baumannii: REACTION Ampicillin+Sulbac Islt PARTH <=2 S levoFLOXacin Islt PARTH 0.25 S Meropenem Islt PARTH 1 Pip+Tazo Islt PARTH >=128 R TMP SMX Islt PARTH <=20 S Meth. resistant Staph. aureus: REACTION cefOXitin Susc Islt POS Doxycycline Islt PARTH <=0.5 S Clindamycin.induced Susc Islt Gentamicin Islt PARTH <=0.5 S Linezolid Islt PARTH 2 S Moxifloxacin Islt PARTH <=0.25 S Nitrofurantoin Islt PARTH <=16 S Oxacillin Susc Islt >=4 R Tetracycline Islt PARTH <=1 S TMP SMX Islt PARTH <=10 S Vancomycin Islt PARTH 1 S Normal [facility] Comment on above: Performed By: #### L 501.080 #### [facility] [address] [place], [address] Absolute lymphocyte countOrd ered By: Shruti Jara on 04-17-2025 Lymphocytes Auto (Unsp spec) [#/Vol] 0.97 10*3/uL 0.83-4.51 [facility] Anion gap in Serum or Plasma Ordered By: Shruti Jara on 04-17-2025 Anion gap [Moles/Vol] 11 mmol/L - [facility] Automated lymphocyte count a s percentage of total leukocytesOrdered By: Shruti Jara on 04-17-2025 Lymphocytes/100 WBC Auto (Unsp spec) 20.3 % [facility] BUN/creatinine ratioOrdered By: Shruti Jara on 04-17-2025 Urea nitrogen/Creatinine [Mass ratio] 15.2 mg/mg - [facility] Basic Metabolic Profile (BMP )on 04-17-2025 BUN/CRE 15.2 RATIO Normal - [facility] Comment on above: Performed By: #### L 500.2500, L100.0100 #### [facility] [address], [address] Calcium [Mass/Vol] 8.8 mg/dL Normal 7.6-11.0 [facility] Comment on above: Performed By: #### L 500.2500, L100.0100 #### [facility] [address] [place], [address] Chloride [Moles/Vol] 107 mmol/L Normal 98-108 [facility] Comment on above: Performed By: #### L 500.2500, L100.0100 #### [facility] [address] [place], [address] CO2 [Moles/Vol] 19.1 mmol/L Low 21.0-32.0 [facility] Comment on above: Performed By: #### L 500.2500, L100.0100 #### [facility] [address] [place], [address] Creatinine [Mass/Vol] 0.98 mg/dL Normal 0.70-1.20 [facility] Comment on above: Performed By: #### L 500.2500, L100.0100 #### [facility] [address] [place], [address] ECRCL 81.43 ml/min Normal 50-250 [facility] Comment on above: Performed By: #### L 500.2500, L100.0100 #### [facility] [address] [place], [address] GAP 11 Normal 5-15 [facility] Comment on above: Performed By: #### L 500.2500, L100.0100 #### [facility] [address] [place], [address] GFR/1.73 sq M.predicted among non-blacks MDRD (S/P/Bld) [Vol rate/Area] 91 mL/min/{1.73_m2} Normal >60 [facility] Comment on above: Result Comment: mL/m in/1.73m2 CKD-EPI Creatinine Equation (2020) Performed By: #### L 500.2500, L100.0100 #### [facility] [address] [place], [address] Glucose [Mass/Vol] 219 mg/dL High 70-99 [facility] Comment on above: Performed By: #### L 500.2500, L100.0100 #### [facility] [address] [place], [address] Potassium [Moles/Vol] 3.8 mmol/L Normal 3.3-5.1 [facility] Comment on above: Performed By: #### L 500.2500, L100.0100 #### [facility] [address] [place], [address] Sodium [Moles/Vol] 137 mmol/L Normal 133-145 [facility] Comment on above: Performed By: #### L 500.2500, L100.0100 #### [facility] [address] [place], [address] Urea nitrogen [Mass/Vol] 15 mg/dL Normal 4-19 [facility] Comment on above: Performed By: #### L 500.2500, L100.0100 #### [facility] [address] [place], [address] Basophil percentageOrdered B y: Shruti Jara on 04-17-2025 Basophils/100 WBC (Bld) 0.4 % 0-1 [facility] Bedside Glucoseon 04-17-2025 FINGERSTICK GLU 302 mg/dL High 74-106 [facility] Comment on above: Result Comment: RACHEL GEMENT OF PATIENT CARE PER NURSING PROTOCOL Performed By: #### L 500.2500, L100.0100 #### [facility] [address] [place], [address] FINGERSTICK GLU 372 mg/dL High [address] [facility] Comment on above: Result Comment: RACHEL GEMENT OF PATIENT CARE PER NURSING PROTOCOL Performed By: #### L 500.2500, L100.0100 #### [facility] [address] [place], [address] FINGERSTICK GLU 306 mg/dL High 74-106 [facility] Comment on above: Result Comment: RACHEL GEMENT OF PATIENT CARE PER NURSING PROTOCOL Performed By: #### L 500.2500 #### [facility] [address] [place], [address] FINGERSTICK GLU 195 mg/dL High [address] [place] [address] Comment on above: Result Comment: RACHEL GEMENT OF PATIENT CARE PER NURSING PROTOCOL Performed By: #### L 500.2500, L100.0100 #### [facility] [address] [place], [address] CBC W/Diff, Automatedon 08-0 9-2024 Absolute Lymph 0.97 X10 3/uL Normal 0.83-4.51 [facility] Comment on above: Performed By: #### L 500.2500, L100.0100 #### [facility] [address] [place], [address] Absolute Neut 3.3 X10 3/uL Normal 2.0-7.7 [facility] Comment on above: Performed By: #### L 500.2500, L100.0100 #### [facility] [address] [place], [address] Basophils/100 WBC (Bld) 0.4 % Normal 0-1 [facility] Comment on above: Performed By: #### L 500.2500, L100.0100 #### [facility] [address] [place], [address] Eosinophils/100 WBC (Bld) 1.5 % Normal 0-5 [facility] Comment on above: Performed By: #### L 500.2500, L100.0100 #### [facility] [address] [place], [address] Erythrocyte distribution width (RBC) [Ratio] 12.2 % Normal 11.6-14.6 [facility] Comment on above: Performed By: #### L 500.2500, L100.0100 #### [facility] [address] [place], [address] Hematocrit (Bld) [Volume fraction] 31.3 % Low 40-54 [facility] Comment on above: Performed By: #### L 500.2500, L100.0100 #### [facility] [address] [place], [address] Hemoglobin (Bld) [Mass/Vol] 10.3 g/dL Low 13.0-16.5 [facility] Comment on above: Performed By: #### L 500.2500, L100.0100 #### [facility] [address] [place], [address] IG% 0.400 Normal 0.0-0.9 [facility] Comment on above: Result Comment: IG% - Immature Granulocytes (promyelocytes, myelocytes and metamyelocytes) > 1% indicates that a LEFT SHIFT is Present. Performed By: #### L 500.2500, L100.0100 #### [facility] [address] [place], [address] Lymphocytes/100 WBC (Bld) 20.3 % Normal 19-41 [facility] Comment on above: Performed By: #### L 500.2500, L100.0100 #### [facility] [address] [place], [address] MCH (RBC) [Entitic mass] 29.1 pg Normal 27.0-32.0 [facility] Comment on above: Performed By: #### L 500.2500, L100.0100 #### [facility] [address] [place], [address] MCHC (RBC) [Mass/Vol] 32.9 g/dL Normal 32-36 [facility] Comment on above: Performed By: #### L 500.2500, L100.0100 #### [facility] [address] [place], [address] MCV (RBC) [Entitic vol] 88.4 fL Normal 80-94 [facility] Comment on above: Performed By: #### L 500.2500, L100.0100 #### [facility] [address] [place], [address] Monocytes/100 WBC (Bld) 7.9 % Normal 0-10 [facility] Comment on above: Performed By: #### L 500.2500, L100.0100 #### [facility] [address] [place], [address] Neutrophils/100 WBC (Bld) 69.5 % Normal 47-70 [facility] Comment on above: Performed By: #### L 500.2500, L100.0100 #### [facility] [address] [place], [address] Nucleated RBC (Bld) [#/Vol] 0 10*3/uL Normal 0-5 [facility] Comment on above: Performed By: #### L 500.2500, L100.0100 #### [facility] [address] [place], [address] Platelet mean volume (Bld) [Entitic vol] 10.1 fL Normal 6.2-12.0 [facility] Comment on above: Performed By: #### L 500.2500, L100.0100 #### [facility] [address] [place], [address] Platelets (Bld) [#/Vol] 201 10*3/uL Normal 150-450 [facility] Comment on above: Performed By: #### L 500.2500, L100.0100 #### [facility] [address] [place], [address] RBC (Bld) [#/Vol] 3.54 10*6/uL Low 4.6-6.2 [facility] Comment on above: Performed By: #### L 500.2500, L100.0100 #### [facility] [address] [place], [address] RDW SD 39.8 fl Normal 35.1-43.9 [facility] Comment on above: Performed By: #### L 500.2500, L100.0100 #### [facility] [address] [place], [address] WBC (Bld) [#/Vol] 4.8 10*3/uL Normal 4.4-11.0 [facility] Comment on above: Performed By: #### L 500.2500, L100.0100 #### [facility] [address] [place], [address] Carbon dioxide, total [Moles /volume] in Central venous bloodOrdered By: Shruti Marek on 04-17-2025 CO2 [Moles/Vol] 19.1 mmol/L Low 21.0-32.0 [facility] Chloride assayOrdered By: Na na Marek on 04-17-2025 Chloride [Moles/Vol] 107 mmol/L 98-108 [facility] Culture, Blood (WB)on 2024 CUB Blood cultures x2, f rom two different sites GRAM STAIN = GRAM POSITIVE COCCI Culture, Blood (WB) #2, 3 Possible skin contamination, further Identification and sensitivity will be performed only by physician's request. Culture, Blood (WB) RESULTS CALLED TO COLLETTE ALONSO 04/15/25 0934 Nancy Townsend. REPORT READ BACK BY CELESTE. Culture, Blood (WB) [facility] RESULTS CALLED TO [facility] 04/16/25 0817 Lashae Fernando. REPORT READ BACK BY . Culture, Blood (WB) MRSA RESULTS CALLED TO XIANG Moya V. 04/17/25 0720 Lashae Fernando. REPORT READ BACK BY . Culture, Blood (WB) Copy of report sent to Infection Control Printer [id number] 04/17/25 0746 KOBE. Culture, Blood (WB) Culture, Blood (WB) Meth. resistant Staph. aureus Amount Growth Growth mecA Testing not performed [employer] Amount Growth Growth Coag Negative Staph Amount Growth Growth Meth. resistant Staph. aureus: REACTION Coag Negative Staph Doxycycline Islt PARTH <=0.5 Clindamycin Islt PARTH 0.25 S Clindamycin.induced Susc Islt Erythromycin Islt PARTH <=0.25 S Gentamicin Islt PARTH <=0.5 S Linezolid Islt PARTH 4 S Moxifloxacin Islt PARTH <=0.25 S Oxacillin Susc Islt >=4 R Tetracycline Islt PARTH <=1 S TMP SMX Islt PARTH <=10 S Vancomycin Islt PARTH <=0.5 S Normal [facility] Comment on above: Performed By: #### L 501.080 #### [facility] [address] [place], [address] Eosinophil percentageOrdered By: Shruti Jara on 04-17-2025 Eosinophils/100 WBC (Bld) 1.5 % 0-5 [facility] Erythrocyte distribution wid th ratioOrdered By: Shruti Jara on 04-17-2025 Erythrocyte distribution width (RBC) [Ratio] 12.2 % 11.6-14.6 [facility] Erythrocyte distribution wid th standard deviationOrdered By: Shruti Jara on 04-17-2025 Erythrocyte distribution width (RBC) [Ratio] 39.8 fl 35.1-43.9 [facility] Glomerular filtration rate ( GFR) estimation/1.73 sq m using serum, plasma, or whole bOrdered By: Shruti Jara on 04-17-2025 GFR/1.73 sq M.predicted among non-blacks MDRD (S/P/Bld) [Vol rate/Area] 91 mL/min/{1.73_m2} >60 [facility] deOrdered By: Shruti Jara on 04-17-2025 Glucose [Mass/Vol] 302 mg/dL High 74-106 [facility] Hematocrit Auto (Bld) [Volum e fraction]Ordered By: Shruti Jara 04-17-2025 Hematocrit (Bld) [Volume fraction] 31.3 % Low 40-54 [facility] Hemoglobin measurementOrdere d By: Shruti Jara on 04-17-2025 Hemoglobin (Bld) [Mass/Vol] 10.3 g/dL Low 13.0-16.5 [facility] Immature granulocytes/100 WB C Auto (Bld)Ordered By: Shruti Jara 04-17-2025 Immature granulocytes/100 WBC (Bld) 0.400 % 0.0-0.9 [facility] MCV (mean corpuscular volume ) determinationOrdered By: Shruti Jara 04-17-2025 MCV (RBC) [Entitic vol] 88.4 fL 80-94 [facility] Mean corpuscular hemoglobin (MCH) determinationOrdered By: Shruti Jara on 04-17-2025 MCH (RBC) [Entitic mass] 29.1 pg 27.0-32.0 [facility] Monocyte percentageOrdered B y: Shruti Jara on 04-17-2025 Monocytes/100 WBC (Bld) 7.9 % 0-10 [facility] Neutrophil percentageOrdered By: Shruti Jara on 04-17-2025 Neutrophils/100 WBC (Bld) 69.5 % 47-70 [facility] Platelet countOrdered By: Na na Marek on 04-17-2025 Platelets (Bld) [#/Vol] 201 10*3/uL 150-450 [facility] Potassium measurement (mass/ volume)Ordered By: Shruti Jara on 04-17-2025 Potassium (Unsp spec) [Mass/Vol] 3.8 mmol/L 3.3-5.1 [facility] RBC Auto (Bld) [#/Vol]Ordere d By: Shruti Jara on 04-17-2025 RBC (Bld) [#/Vol] 3.54 10*6/uL Low 4.6-6.2 [facility] Serum creatinine measurement (mass/volume)Ordered By: Shruti Jara on 04-17-2025 Creatinine [Mass/Vol] 0.98 mg/dL 0.70-1.20 [facility] Serum glucose measurement (m ass/volume)Ordered By: Shruti Jara on 04-17-2025 Glucose [Mass/Vol] 219 mg/dL High 70-99 [facility] Serum or plasma calcium regi urement (mass/volume)Ordered By: Shruti Jara on 04-17-2025 Calcium [Mass/Vol] 8.8 mg/dL 7.6-11.0 [facility] Serum or plasma urea nitroge n measurement (mass/volume)Ordered By: Shruti Jara on 04-17-2025 Urea nitrogen [Mass/Vol] 15 mg/dL 4-19 [facility] Sodium levelOrdered By: Shruti Jara on 04-17-2025 Sodium [Moles/Vol] 137 mmol/L 133-145 [facility] Trough vancomycin levelOrder ed By: Satish Nava on 04-17-2025 Vancomycin trough [Mass/Vol] 18.5 ug/mL High 5.0-15.0 [facility] Vancomycin, Trough Levelon 0 04-17-2025 VANCO, TROUGH 18.5 ug/mL High 5.0-15.0 [facility] Comment on above: Order Comment: Comme nts: DRAW 30 MIN PRIOR TO [id number] Result Comment: Nilson mmended goal trough ranges are generally 10-15 mcg/ml for less severe/complicated infections such as cellulitis or UTI and 15-20 mcg/ml for more severe/complicated infections such as bacteremia/sepsis, osteomyelitis, pneumonia or meningitis. Goal trough ranges should take into account indication, patient-specific factors and organism PARTH. VANCOMYCIN STANDARED DRUG THERAPY TROUGH LEVEL: 5.0 - 15.0 mg/L VANCOMYCIN HIGH INTENSITY THERAPY TROUGH LEVEL: 15.0 - 20.0 mg/L High Intensity therapy recommended for serious life threatening infections include: - Meningitis -Endocarditis -Pneumonia (Ventilator/Healtcare Associated) -Sepsis PLEASE CONTACT PHARMACY SERVICES (#[id number]) FOR INTERPRETATION OF RESULTS. Performed By: #### L 500.2500, L100.0100 #### [facility] [address]. [place], [place], [id number] White blood cell (WBC) count Ordered By: Shruti Jara on 04-17-2025 WBC (Bld) [#/Vol] 4.8 10*3/uL 4.4-11.0 [facility] GPC IDon 04-16-2025 GPC ID Enterococcus sp. Not Detected Listeria spp Not Detected NAAT METHOD Testing was performed using nucleic acid amplification Staphylococcus sp. A DETECTED A Streptococcus spp. Not Detected mecA A mecA Resistance Marker Detected A Cat/vanB Not Detected Staphylococcus epidermidis Normal [facility] Comment on above: Performed By: #### L 501.080 #### [facility] [address] [place], [place], [id number] Basic Metabolic Profile (BMP )on 04-16-2025 BUN/CRE 15.0 RATIO Normal 10-20 [facility] Comment on above: Performed By: #### L 500.2500 #### [facility] [address] [place], [address] Calcium [Mass/Vol] 9.0 mg/dL Normal 7.6-11.0 [facility] Comment on above: Performed By: #### L 500.2500 #### [facility] [address] [place], [address] Chloride [Moles/Vol] 106 mmol/L Normal 98-108 [facility] Comment on above: Performed By: #### L 500.2500 #### [facility] [address] [place], [address] CO2 [Moles/Vol] 19.9 mmol/L Low 21.0-32.0 [facility] Comment on above: Performed By: #### L 500.2500 #### [facility] [address] [place], [address] Creatinine [Mass/Vol] 1.08 mg/dL Normal 0.70-1.20 [facility] Comment on above: Performed By: #### L 500.2500 #### [facility] [address] [place], [address] ECRCL 73.89 ml/min Normal 50-250 [facility] Comment on above: Performed By: #### L 500.2500 #### [facility] [address] [place], [address] GAP 10 Normal 5-15 [facility] Comment on above: Performed By: #### L 500.2500 #### [facility] [address] [place], [address] GFR/1.73 sq M.predicted among non-blacks MDRD (S/P/Bld) [Vol rate/Area] 81 mL/min/{1.73_m2} Normal >60 [facility] Comment on above: Result Comment: mL/m in/1.73m2 CKD-EPI Creatinine Equation (2020) Performed By: #### L 500.2500 #### [facility] [address] [place], [address] Glucose [Mass/Vol] 153 mg/dL High 70-99 [facility] Comment on above: Performed By: #### L 500.2500 #### [facility] [address] [place], [address] Potassium [Moles/Vol] 3.5 mmol/L Normal 3.3-5.1 [facility] Comment on above: Performed By: #### L 500.2500 #### [facility] [address] [place], [address] Sodium [Moles/Vol] 135 mmol/L Normal 133-145 [facility] Comment on above: Performed By: #### L 500.2500 #### [facility] [address] [place], [address] Urea nitrogen [Mass/Vol] 16 mg/dL Normal 4-19 [facility] Comment on above: Performed By: #### L 500.2500 #### [facility] [address] [place], [address] Bedside Glucoseon 04-16-2025 FINGERSTICK GLU 268 mg/dL High 74-106 [facility] Comment on above: Result Comment: RACHEL GEMENT OF PATIENT CARE PER NURSING PROTOCOL Performed By: #### L 500.2500 #### [facility] [address] [place], [address] FINGERSTICK GLU 309 mg/dL High 74-106 [facility] Comment on above: Result Comment: RACHEL GEMENT OF PATIENT CARE PER NURSING PROTOCOL Performed By: #### L 500.2500 #### [facility] [address] [place], [address] FINGERSTICK GLU 211 mg/dL High 74-106 [facility] Comment on above: Result Comment: RACHEL GEMENT OF PATIENT CARE PER NURSING PROTOCOL Performed By: #### L 501.080 #### [facility] [address] [place], [address] FINGERSTICK GLU 148 mg/dL High 74-106 [facility] Comment on above: Result Comment: RACHEL GEMENT OF PATIENT CARE PER NURSING PROTOCOL Performed By: #### L 500.2500 #### [facility] [address] [place], [address] FINGERSTICK GLU 220 mg/dL High 74-106 [facility] Comment on above: Result Comment: RACHEL GEMENT OF PATIENT CARE PER NURSING PROTOCOL Performed By: #### L 500.2500 #### [facility] [address] [place], [address] CBC W/Diff, Automatedon 08-0 8-2025 Absolute Lymph 1.31 X10 3/uL Normal 0.83-4.51 [facility] Comment on above: Performed By: #### L 500.2500 #### [facility] [address] [place], [address] Absolute Neut 4.8 X10 3/uL Normal 2.0-7.7 [facility] Comment on above: Performed By: #### L 500.2500 #### [facility] [address] [place], [address] Basophils/100 WBC (Bld) 0.3 % Normal 0-1 [facility] Comment on above: Performed By: #### L 500.2500 #### [facility] [address] [place], [address] Eosinophils/100 WBC (Bld) 0.4 % Normal 0-5 [facility] Comment on above: Performed By: #### L 500.2500 #### [facility] [address] [place], [address] Erythrocyte distribution width (RBC) [Ratio] 12.3 % Normal 11.6-14.6 [facility] Comment on above: Performed By: #### L 500.2500 #### [facility] [address] [place], [address] Hematocrit (Bld) [Volume fraction] 30.4 % Low 40-54 [facility] Comment on above: Performed By: #### L 500.2500 #### [facility] [address] [place], [address] Hemoglobin (Bld) [Mass/Vol] 10.0 g/dL Low 13.0-16.5 [facility] Comment on above: Performed By: #### L 500.2500 #### [facility] [address] [place], [address] IG% 0.100 Normal 0.0-0.9 [facility] Comment on above: Result Comment: IG% - Immature Granulocytes (promyelocytes, myelocytes and metamyelocytes) > 1% indicates that a LEFT SHIFT is Present. Performed By: #### L 500.2500 #### [facility] [address] [place], [address] Lymphocytes/100 WBC (Bld) 19.2 % Normal 19-41 [facility] Comment on above: Performed By: #### L 500.2500 #### [facility] [address] [place], [address] MCH (RBC) [Entitic mass] 29.6 pg Normal 27.0-32.0 [facility] Comment on above: Performed By: #### L 500.2500 #### [facility] [address] [place], [address] MCHC (RBC) [Mass/Vol] 32.9 g/dL Normal 32-36 [facility] Comment on above: Performed By: #### L 500.2500 #### [facility] [address] [place], [address] MCV (RBC) [Entitic vol] 89.9 fL Normal 80-94 [facility] Comment on above: Performed By: #### L 500.2500 #### [facility] [address] [place], [address] Monocytes/100 WBC (Bld) 9.5 % Normal 0-10 [facility] Comment on above: Performed By: #### L 500.2500 #### [facility] [address] [place], [address] Neutrophils/100 WBC (Bld) 70.5 % High 47-70 [facility] Comment on above: Performed By: #### L 500.2500 #### [facility] [address] [place], [address] Nucleated RBC (Bld) [#/Vol] 0 10*3/uL Normal 0-5 [facility] Comment on above: Performed By: #### L 500.2500 #### [facility] [address] [place], [address] Platelet mean volume (Bld) [Entitic vol] 9.4 fL Normal 6.2-12.0 [facility] Comment on above: Performed By: #### L 500.2500 #### [facility] [address] [place], [address] Platelets (Bld) [#/Vol] 197 10*3/uL Normal 150-450 [facility] Comment on above: Performed By: #### L 500.2500 #### [facility] [address] [place], [address] RBC (Bld) [#/Vol] 3.38 10*6/uL Low 4.6-6.2 [facility] Comment on above: Performed By: #### L 500.2500 #### [facility] [address] [place], [address] RDW SD 40.1 fl Normal 35.1-43.9 [facility] Comment on above: Performed By: #### L 500.2500 #### [facility] [address] [place], [place], [address] WBC (Bld) [#/Vol] 6.8 10*3/uL Normal 4.4-11.0 [facility] Comment on above: Performed By: #### L 500.2500 #### [facility] [address] [place], [address] Consultation - Infectious Dx on 04-16-2025 Consultation - Infectious Dx [facility] Medical Records Department [address] [place] [address] Consultation - Infectious Dx 04/16/25 1019 MR#: [id number] Acct: [id number] Name: ITALO BURGOS Rep #: [id number] : 1970 54 From: Satish Nava MD PCP: Dr. Zaida Gaston MD Status:ADM IN Location: [place] [address] Assessment Plan Assessment/Plan (1) Kidney transplant recipient: (2) Acute pyelonephritis due to bacteria: (3) Acute on chronic renal insufficiency: (4) Staphylococcus aureus bacteremia: PLAN: Ucx 04/04/25 with MRSA. Ucx now with GNR. 1 of 2 bcx here with MRSE on pcr, but now growth of staph aureus and CoNS. Wbc improved, no fever. Is immunosuppressed. Transfer planned. Will order repeat bcx and TTE. Cont cefepime, will restart vanc. Will follow, thank you HPI Consult Data Date of Consult: 04/16/25 HPI Narrative Reason for Consultation: pyelonephritis HPI Narrative: ITALO BURGOS, is a 54 M with h/o kidney transplant 2020, T1DM, recurrent kidney stones, and currently homeless. He presented to ED 04/14/25 with one day h/o fever, chills, moderate R flank pain. Has had R nephrostomy tube in for about a month. CT showed stone with hydro on R side. Admitted on cefepime, given dose of vanc. Reports compliance with meds and bactrim for proph. Feeling a little better today. Full ROS performed and neg except as noted above. [facility] Medical History MRSA (methicillin resistant staph aureus) culture positive Anxiety Depression Diabetes Former smoker CPAP (continuous [...] (LHC) ( 06/26/11) Atherosclerotic heart disease of [place] coronary artery without angina pectoris Essential hypertension [...] sodium 180 mg 360 mg PO BID kidneys 01/26/2511/03 History tablet,delayed release sulfamethoxazole 400 1 tab PO MOWEFR 01/26/25 03/10/25 History mg-trimethoprim 80 mg tablet carvedilol 12.5 mg tablet 12.5 mg PO BID 03/10/25 03/10/25 H istory escitalopram oxalate 10 mg tablet 10 mg PO DAILY 03/10/25 03/09/25 History aspirin 81 mg chewable tablet 1 tab PO DAILY 04/14/25 Unknown Hi story bupropion HCl 150 mg 24 hr tablet, 150 mg PO DAILY 04/14/25 Unknown History extended release gabapentin 100 mg capsule 100 mg PO QHS 04/14/25 Unknown His tory Allergy/AdvReac Type Severity Reaction Status Date / Time No Known Allergies Allergy Verified 04/04/25 11:08 Family History Mother Heart disease Hypertension Father Cancer Brother Cancer Diabetes Sister Diabetes Other Alcohol abuse Depression H/O transfusion of whole blood Kidney disease Surgical History Renal transplant recipient Kidney replaced by transplant History of artificial lens replacement History of arteriovenostomy for renal dialysis ( 08/2018) Status post insertion of dialysis catheter ( 08/2018) History of ap (more content not included)... Normal [facility] Echo Complete W/ Contraston 04-16-2025 Echo Complete W/ Contrast [facility] Cardi[facility] Services [address] [place] [address] Echo Complete W/ Contrast 04/16/25 1501 MR#: [id number] Acct: [id number] Name: ITALO BURGOS Rep #: [id number] : 1970 54 From: Anila Flores MD Attending Dr: Dr. Shruti Jara MD Status: AD M IN Ordering Dr: Satish Nava MD Date: 04/16/25 Location: U Sex: M C Admitted: 04/15/25 Reason For Study Reason For Study: MURMUR Procedure This was a 2D Doppler, Color Flow transthoracic echocardiogram. Exam performed portable in patient room. Left Ventricle Normal LV size. Moderate concentric left ventricular hypertrophy. The estimated ejection fraction is 65-70 %. Stage 1 diastolic dysfunction. No regional wall motion abnormalities noted. Right Ventricle Normal RV size. Normal systolic function. Atria Normal left atrium. Normal right atrium. Mitral Valve The mitral valve is structurally normal. No prolapse or stenosis seen. Tricuspid Valve Normal tricuspid valve. Trivial tricuspid valve insufficiency. Pulmonary artery systolic pressure is 24 mmHg. Aortic Valve Trisinus/trileaflet aortic valve. Mild focal aortic valve thickening. There is no aortic stenosis. Pulmonic Valve Normal pulmonic valve. Great Vessels Normal sized aortic root. Pericardium/Pleural No pericardial effusion. MMode/2D Measurements Calculations LVIDd: 3.5 cm IVSd: 1.6 cm Ao root diam: 3.4 cm LVIDs: 2.4 cm LVPWd: 1.2 cm RVDd: 2.4 cm FS: 30.7 % LAV(MOD-bp): 60.2 ml LVAd ap4: 26.3 cm2 SV(MOD-sp4): 44.1 ml LAV(MOD-bp) Indexed: 32.0 ml/m2 LVLd ap4: 8.9 cm SI(MOD-sp4): 23.4 ml/m2 LAV(MOD-sp2): 53.3 ml EDV(MOD-sp4): 64.1 ml LAV(MOD-sp4): 67.7 ml EDV(sp4-el): 65.8 ml LVAs ap4: 13.1 cm2 LVLs ap4: 7.8 cm ESV(MOD-sp4): 20.0 ml ESV(sp4-el): 18.5 ml EF(MOD-sp4): 68.8 % EF(sp4-el): 71.9 % SV(sp4-el): 47.3 ml LA A4 area: 20.8 cm2 LA dimension(2D): 4.4 cm RA A4 area: 14.8 cm2 TAPSE: 2.4 cm Time Measurements MV dec time: 0.24 sec Doppler Measurements Calculations MV E max bird: 94.0 cm/sec Lat Peak E' Bird: 9.5 cm/sec Med Peak E' Bird: 7.3 cm/sec MV A max bird: 123.8 cm/sec E/E' lat: 9.9 E/E' med: 12.9 MV E/A: 0.76 MV V2 max: 129.3 cm/sec MV P1/2t max bird: 103.2 cm/sec Ao V2 max: 140.7 cm/sec MV max P.7 mmHg MV P1/2t: 35.8 msec Ao max P.9 mmHg MV V2 mean: 86.3 cm/sec Ao V2 mean: 102.5 cm/sec MV mean P.3 mmHg MV dec slope: 844.7 cm/sec2 Ao mean P.5 mmHg MV V2 VTI: 25.5 cm MVA(P1/2t): 6.1 cm2 Ao V2 VTI: 28.5 cm AV (velocity ratio): 0.83 LV V1 max: 113.1 cm/sec PA V2 max: 118.8 cm/sec TR max bird: 227.3 cm/sec LV V1 max P.1 mmHg PA V2 mean: 91.5 cm/sec TR max P.7 mmHg LV V1 mean P.0 mmHg LV V1 mean: 82.1 cm/sec LV V1 VTI: 23.5 cm ECHO/Echo Complete W/ Contrast Interpretation Summary The estimated ejection fraction is 65-70 %. Stage 1 diastolic dysfunction. Moderate concentric left ventricular hypertrophy. Mild focal aortic valve thickening. Ordering Physician: Satish Nava Referring Physician: Zaida Gaston Performed By: Maranda Jimenez, BO, RVT 04/16/25 1640 Date Anila Flores MD CC: Dr. Zaida Gaston MD; Dr. Shruti Jara MD; Dr. Satish Nava MD Date Dictated: 04/16/25 1501 Date Transcribed: 04/16/25 1640 Dispersion Mixer: Signed Normal [facility] Echocardiogram study reportO rdered By: Anila Flores on 04-16-2025 Study report [facility] Work Phone: Basic Metabolic Profile (BMP )on 04-15-2025 BUN/CRE 19.3 RATIO Normal 10-20 [facility] Comment on above: Performed By: #### L 500.2500, L100.0100 #### [facility] [address] [place], [address] Calcium [Mass/Vol] 9.1 mg/dL Normal 7.6-11.0 [facility] Comment on above: Performed By: #### L 500.2500, L100.0100 #### [facility] [address] [place], [address] Chloride [Moles/Vol] 104 mmol/L Normal 98-108 [facility] Comment on above: Performed By: #### L 500.2500, L100.0100 #### [facility] [address] [place], [address] CO2 [Moles/Vol] 21.9 mmol/L Normal 21.0-32.0 [facility] Comment on above: Performed By: #### L 500.2500, L100.0100 #### [facility] [address] [place], [address] Creatinine [Mass/Vol] 1.10 mg/dL Normal 0.70-1.20 [facility] Comment on above: Performed By: #### L 500.2500, L100.0100 #### [facility] [address] [place], [address] ECRCL 72.55 ml/min Normal 50-250 [facility] Comment on above: Performed By: #### L 500.2500, L100.0100 #### [facility] [address] [place], [address] GAP 9 Normal 5-15 [facility] Comment on above: Performed By: #### L 500.2500, L100.0100 #### [facility] [address] [place], [address] GFR/1.73 sq M.predicted among non-blacks MDRD (S/P/Bld) [Vol rate/Area] 79 mL/min/{1.73_m2} Normal >60 [facility] Comment on above: Result Comment: mL/m in/1.73m2 CKD-EPI Creatinine Equation (2020) Performed By: #### L 500.2500, L100.0100 #### [facility] [address] [place], [address] Glucose [Mass/Vol] 267 mg/dL High 70-99 [facility] Comment on above: Performed By: #### L 500.2500, L100.0100 #### [facility] [address] [place], [address] Potassium [Moles/Vol] 4.1 mmol/L Normal 3.3-5.1 [facility] Comment on above: Performed By: #### L 500.2500, L100.0100 #### [facility] [address] [place], [address] Sodium [Moles/Vol] 136 mmol/L Normal 133-145 [facility] Comment on above: Performed By: #### L 500.2500, L100.0100 #### [facility] [address] [place], [address] Urea nitrogen [Mass/Vol] 21 mg/dL High 4-19 [facility] Comment on above: Performed By: #### L 500.2500, L100.0100 #### [facility] [address] [place], [address] Bedside Glucoseon 04-15-2025 FINGERSTICK GLU 331 mg/dL High 74-106 [facility] Comment on above: Result Comment: RACHEL GEMENT OF PATIENT CARE PER NURSING PROTOCOL Performed By: #### L 501.080 #### [facility] [address] [place], [address] FINGERSTICK GLU 241 mg/dL High 74-106 [facility] Comment on above: Result Comment: RACHEL GEMENT OF PATIENT CARE PER NURSING PROTOCOL Performed By: #### L 501.080 #### [facility] [address] [place], [address] CBC W/Diff, Automatedon 08-0 7-2024 Absolute Lymph 0.92 X10 3/uL Normal 0.83-4.51 [facility] Comment on above: Performed By: #### L 500.2500, L100.0100 #### [facility] [address] [place], [address] Absolute Neut 9.8 X10 3/uL High 2.0-7.7 [facility] Comment on above: Performed By: #### L 500.2500, L100.0100 #### [facility] [address] [place], [address] Basophils/100 WBC (Bld) 0.3 % Normal 0-1 [facility] Comment on above: Performed By: #### L 500.2500, L100.0100 #### [facility] [address] [place], [address] Eosinophils/100 WBC (Bld) 0.2 % Normal 0-5 [facility] Comment on above: Performed By: #### L 500.2500, L100.0100 #### [facility] [address] [place], [address] Erythrocyte distribution width (RBC) [Ratio] 12.5 % Normal 11.6-14.6 [facility] Comment on above: Performed By: #### L 500.2500, L100.0100 #### [facility] [address] [place], [address] Hematocrit (Bld) [Volume fraction] 34.4 % Low 40-54 [facility] Comment on above: Performed By: #### L 500.2500, L100.0100 #### [facility] [address] [place], [address] Hemoglobin (Bld) [Mass/Vol] 11.3 g/dL Low 13.0-16.5 [facility] Comment on above: Performed By: #### L 500.2500, L100.0100 #### [facility] [address] [place], [address] IG% 0.300 Normal 0.0-0.9 [facility] Comment on above: Result Comment: IG% - Immature Granulocytes (promyelocytes, myelocytes and metamyelocytes) > 1% indicates that a LEFT SHIFT is Present. Performed By: #### L 500.2500, L100.0100 #### [facility] [address] [place], [address] Lymphocytes/100 WBC (Bld) 7.9 % Low 19-41 [facility] Comment on above: Performed By: #### L 500.2500, L100.0100 #### [facility] [address] [place], [address] MCH (RBC) [Entitic mass] 29.1 pg Normal 27.0-32.0 [facility] Comment on above: Performed By: #### L 500.2500, L100.0100 #### [facility] [address] [place], [address] MCHC (RBC) [Mass/Vol] 32.8 g/dL Normal 32-36 [facility] Comment on above: Performed By: #### L 500.2500, L100.0100 #### [facility] [address] [place], [address] MCV (RBC) [Entitic vol] 88.7 fL Normal 80-94 [facility] Comment on above: Performed By: #### L 500.2500, L100.0100 #### [facility] [address] [place], [address] Monocytes/100 WBC (Bld) 7.4 % Normal 0-10 [facility] Comment on above: Performed By: #### L 500.2500, L100.0100 #### [facility] [address] [place], [address] Neutrophils/100 WBC (Bld) 83.9 % High 47-70 [facility] Comment on above: Performed By: #### L 500.2500, L100.0100 #### [facility] [address] [place], [address] Nucleated RBC (Bld) [#/Vol] 0 10*3/uL Normal 0-5 [facility] Comment on above: Performed By: #### L 500.2500, L100.0100 #### [facility] [address] [place], [address] Platelet mean volume (Bld) [Entitic vol] 9.1 fL Normal 6.2-12.0 [facility] Comment on above: Performed By: #### L 500.2500, L100.0100 #### [facility] [address] [place], [address] Platelets (Bld) [#/Vol] 224 10*3/uL Normal 150-450 [facility] Comment on above: Performed By: #### L 500.2500, L100.0100 #### [facility] [address] [place], [address] RBC (Bld) [#/Vol] 3.88 10*6/uL Low 4.6-6.2 [facility] Comment on above: Performed By: #### L 500.2500, L100.0100 #### [facility] [address] [place], [address] RDW SD 40.5 fl Normal 35.1-43.9 [facility] Comment on above: Performed By: #### L 500.2500, L100.0100 #### [facility] [address] [place], [place], [address] WBC (Bld) [#/Vol] 11.6 10*3/uL High 4.4-11.0 [facility] Comment on above: Performed By: #### L 500.2500, L100.0100 #### [facility] [address] [place], [place], [address] [facility] deOrdered By: Chuy Santiago on 04-15-2025 Glucose [Mass/Vol] 241 mg/dL High 74-106 [facility] Comment on above: MANAGEMENT OF PATIEN T CARE PER NURSING PROTOCOL H AND P Exam - Hospitaliston 04-15-2025 H&P Exam - Hospitalist [facility] Medical Records Department [address] [place] [address] H P Exam - Hospitalist 04/15/25 0944 MR#: [id number] Acct: [id number] Name: ITALO BURGOS Rep #: [id number] : 1970 54 From: Shruti Jara MD PCP: Dr. Zaida Gaston MD Status:ADM IN Location: [place] [address] HPI - General General Date of Admission: 04/15/25 Date of Service: 04/15/25 Chief Complaint: fever, general feeling of unwellness HPI Narrative ITALO BURGOS, is a 54 M with a PMH as outlined who presented to the ED on 04/14/2025 with complaint of fever and chills and elevated blood sugars greater than 200 since the morning he came into the ED. He also generally felt unwell. Patient has a history of diabetic nephropathy s/p right kidney transplant and follows up with [facility]. He said he also had a history of kidney stones and had been scheduled to follow-up at [facility] where he usually goes for the right kidney stones to be taken out. He said he had had a nephrostomy tube put in about 4 weeks ago to relieve obstruction from the kidney stones. His above symptoms started. He denied any right flank pain and denied any pus in his urine. However because he felt very weak and lethargic he came into the ED. On arrival in the ED he was found to be tachycardic and tachypneic with heart rate of 113 and respiratory rate of 26. His temperature was 99.6 Fahrenheit. CBC done showed WBC of 12.6 and hemoglobin of 13.3 with platelets of 276. Sodium was 130 with potassium of 4.3 and creatinine of 1.62. Bicarb was 22.5. Lactic acid was 1.6. Urinalysis showed cloudy urine with positive nitrites and more than 500 leukocyte esterase and more than 100 WBC. Urine bacteria was 1+. CT abdomen pelvis showed s/p right hemipelvic renal transplant with percutaneous nephrostomy in good position and persistent mid ureter ureteral 9 mm stone causing hydronephrosis with superimposed kidney infection possible. The ED doctor discussed with the urologist who stated the patient should be transferred to [facility] as he could not do an intervention here in light of him being a kidney transplant patient. Patient was accepted at [facility]. However after staying overnight in the ED and now getting a bed at [facility], decision was made to admit patient to us to [facility] pending transfer. Patient is understanding of the fact that we will only place him on antibiotics here pending transfer as our urologist here is not comfortable with doing any procedure here. Patient is understanding of this and accepting. At the time I reviewed patient in the ED, his vitals were temperature of 97.8 Fahrenheit with pulse rate of 95, respiratory rate of 13 and he was saturating at 100% on room air. He is therefore been admitted to be managed for sepsis due to infected right kidney stone with possible pyelonephritis and UTI. Patient is currently homeless and lives in a alf. [facility] Medical History MRSA (methicillin resistant staph aureus) culture positive Anxiety Depression Diabetes Former smoker CPAP (continuous [...] (LHC) ( 06/26/11) Atherosclerotic heart disease of [place] coronary artery without angina pectoris Essential hypertension [...] 5 mg tablet 5 mg PO DAILY ster (more content not included)... Normal [facility] Lactic Acidon 04-15-2025 Lactate [Moles/Vol] 1.4 mmol/L Normal 0.0-2.0 [facility] Comment on above: Order Comment: Comme nts: if result >2, system reflex orders 2nd test @ 4hrsY Performed By: #### L 501.080 #### [facility] [address] [place], [address] 12 Lead EKGon 04-14-2025 12 Lead EKG [facility] Cardiovascular Services [address] [place] [address] 12 Lead EKG 04/14/25 1731 MR#: [id number] Acct: [id number] Name: ITALO BURGOS Rep #: [id number] : 1970 54 From: Anila Flores MD Attending Dr: Dr. Shruti Jara MD Status: DI S IN Ordering Dr: Chuy Santiago MD Date: 04/14/25 Location: [facility] Sex: M C Admitted: 04/15/25 Test Reason : Blood Pressure : */* mmHG Vent. Rate : 120 BPM Atrial Rate : 120 BPM P-R Int : 176 ms QRS Dur : 100 ms QT Int : 316 ms P-R-T Axes : 30 -45 50 degrees QTcB Int : 446 ms Sinus tachycardia Left axis deviation Left ventricular hypertrophy ( Romhilt-Rogers ) Cannot rule out Septal infarct (cited on or before 17-Sep-2021) Abnormal ECG Confirmed by ANILA FLORES ([id number]), news videotape editor GRAEME ACEVEDO ([id number]) on 04/19/2025 8:08:10 AM Referred By: Confirmed By: ANILA FLORES 04/19/25 0808 Date Anila Flores MD CC: Dr. Zaida Gaston MD; Dr. Shruti Jara MD; Dr. Chuy Santiago MD Signed Normal [facility] Abdomen/Pelvis without Conto n 04-14-2025 Abdomen/Pelvis without Cont [facility] Imaging Services [address] [place] [id number] Abdomen/Pelvis without Cont MR#: [id number] Acct: [id number] Name: ITALO BURGOS Rep #: [id number] : 1970 M 54 From: Rodrigo Linn MD PCP: Dr. Zaida Gaston MD Status: REG ER Study: Abdomen/Pelvis without Cont Date of Exam: 03/03 Exam# [id number] Ordering Dr: Chuy Santiago MD PROCEDURE: ABDOMEN/PELVIS WITHOUT CONT N/A REASON FOR EXAM: KIDNEY STONE TECHNIQUE: ABDOMEN/PELVIS WITHOUT CONT Noncontrast technique limits evaluation of the abdominal and pelvic viscera. Coronal and Sagittal reconstruction series were provided. One or more dose reduction techniques were used (e.g., Automated exposure control, adjustment of the mA and/or kV according to patient size, use of iterative reconstruction technique). RADIATION DOSE SUMMARY: CTDlvol: 8 mGy DLP: 432 mGycm COMPARISON: 03/10/2025 FINDINGS: Under aerated lung bases. Normal heart size. Small pericardial effusion. Status post cholecystectomy. Unremarkable liver, pancreas, spleen, adrenal glands. [place] kidneys are mildly atrophic. There is a right hemipelvic renal transplant, status post percutaneous nephrostomy tube placement which is stable, good position. There is perinephric fat stranding is noted previously. There is a 1 mm right renal calcification. In the mid ureter, there is redemonstration of a 9 mm ureteral stone, series 2, image 147. There is mild distal hydroureter extending to the bladder. There is bladder wall thickening and adjacent fat stranding. Normal prostate. No retroperitoneal or pelvic adenopathy. No free air. Distal esophageal air, correlate for reflux or dysmotility. Nonobstructed. Normal appendix. No acute large bowel findings. Lumbar spine scoliosis and degeneration. Renal osteodystrophy. CT/Abdomen/Pelvis without Cont IMPRESSION: Status post right hemipelvic renal transplant with percutaneous nephrostomy in good position.. Persistent mid ureteral 9 mm stone causing hydronephrosis. Superimposed kidney infection is possible. Possible cystitis. Reading Location: [place] [address] CC: Dr. Zaida Gaston MD; Dr. Chuy Santiago MD Dispersion Mixer: Signed Normal [facility] Absolute lymphocyte countOrd ered By: Chuy Santiago on 04-14-2025 Lymphocytes Auto (Unsp spec) [#/Vol] 1.53 10*3/uL 0.83-4.51 [facility] Absolute neutrophil countOrd ered By: Chuycholo Santiago on 04-14-2025 Neutrophils (Bld) [#/Vol] 9.5 10*3/uL High 2.0-7.7 [facility] Activated partial thrombopla stin time (aPTT) in platelet poor plasma by coagulation aOrdered By: Chuy Santiago on 04-14-2025 aPTT Coag (PPP) [Time] 35.4 s 24.1-36.2 [facility] Anion gap in Serum or Plasma Ordered By: Chuy Santiago on 04-14-2025 Anion gap [Moles/Vol] 16 mmol/L High 5-15 [facility] Automated lymphocyte count a s percentage of total leukocytesOrdered By: Chuy Santiago on 04-14-2025 Lymphocytes/100 WBC Auto (Unsp spec) 12.2 % Low 19-41 [facility] BUN/creatinine ratioOrdered By: Chuy Santiago on 04-14-2025 Urea nitrogen/Creatinine [Mass ratio] 15.9 mg/mg 10-20 [facility] Basophil percentageOrdered B y: Chuy Santiago on 04-14-2025 Basophils/100 WBC (Bld) 0.3 % 0-1 [facility] Bedside Glucoseon 04-14-2025 FINGERSTICK GLU 224 mg/dL High 74-106 [facility] Comment on above: Result Comment: RACHEL ALLEN OF PATIENT CARE PER NURSING PROTOCOL Performed By: #### L 500.2500 #### [facility] [address] [place], [address] Bilirubin Test strip Ql (U)O rdered By: Chuy Santiago on 04-14-2025 Bilirubin Ql (U) Negative Negative [facility] Bilirubin, totalOrdered By: Chuy Santiago on 04-14-2025 Bilirubin [Mass/Vol] 0.82 mg/dL 0.00-1.30 [facility] Blood cultureOrdered By: Chuy Santiago on 04-14-2025 Bacteria identified Cx Nom (Bld) Meth. resistant Staph. aureus Abnormal [facility] Bacteria identified Cx Nom (Bld) Negative Abnormal [facility] CBC W/Diff, Automatedon Absolute Lymph 1.53 X10 3/uL Normal 0.83-4.51 [facility] Comment on above: Performed By: #### L 501.080 #### [facility] [address] [place], [address] Absolute Neut 9.5 X10 3/uL High 2.0-7.7 [facility] Comment on above: Performed By: #### L 501.080 #### [facility] [address] [place], [address] Basophils/100 WBC (Bld) 0.3 % Normal 0-1 [facility] Comment on above: Performed By: #### L 501.080 #### [facility] [address] [place], [address] Eosinophils/100 WBC (Bld) 0.0 % Normal 0-5 [facility] Comment on above: Performed By: #### L 501.080 #### [facility] [address] [place], [address] Erythrocyte distribution width (RBC) [Ratio] 12.3 % Normal 11.6-14.6 [facility] Comment on above: Performed By: #### L 501.080 #### [facility] [address] [place], [address] Hematocrit (Bld) [Volume fraction] 39.7 % Low 40-54 [facility] Comment on above: Performed By: #### L 501.080 #### [facility] [address] [place], [address] Hemoglobin (Bld) [Mass/Vol] 13.3 g/dL Normal 13.0-16.5 [facility] Comment on above: Performed By: #### L 501.080 #### [facility] [address] [place], [address] IG% 0.500 Normal 0.0-0.9 [facility] Comment on above: Result Comment: IG% - Immature Granulocytes (promyelocytes, myelocytes and metamyelocytes) > 1% indicates that a LEFT SHIFT is Present. Performed By: #### L 501.080 #### [facility] [address] [place], [address] Lymphocytes/100 WBC (Bld) 12.2 % Low 19-41 [facility] Comment on above: Performed By: #### L 501.080 #### [facility] [address] [place], [address] MCH (RBC) [Entitic mass] 29.2 pg Normal 27.0-32.0 [facility] Comment on above: Performed By: #### L 501.080 #### [facility] [address] [place], [address] MCHC (RBC) [Mass/Vol] 33.5 g/dL Normal 32-36 [facility] Comment on above: Performed By: #### L 501.080 #### [facility] [address] [place], [address] MCV (RBC) [Entitic vol] 87.1 fL Normal 80-94 [facility] Comment on above: Performed By: #### L 501.080 #### [facility] [address] [place], [address] Monocytes/100 WBC (Bld) 11.3 % High 0-10 [facility] Comment on above: Performed By: #### L 501.080 #### [facility] [address] [place], [address] Neutrophils/100 WBC (Bld) 75.7 % High 47-70 [facility] Comment on above: Performed By: #### L 501.080 #### [facility] [address] [place], [address] Nucleated RBC (Bld) [#/Vol] 0 10*3/uL Normal 0-5 [facility] Comment on above: Performed By: #### L 501.080 #### [facility] [address] [place], [address] Platelet mean volume (Bld) [Entitic vol] 9.4 fL Normal 6.2-12.0 [facility] Comment on above: Performed By: #### L 501.080 #### [facility] [address] [place], [address] Platelets (Bld) [#/Vol] 276 10*3/uL Normal 150-450 [facility] Comment on above: Performed By: #### L 501.080 #### [facility] [address] [place], [address] RBC (Bld) [#/Vol] 4.56 10*6/uL Low 4.6-6.2 [facility] Comment on above: Performed By: #### L 501.080 #### [facility] [address] [place], [address] RDW SD 39.6 fl Normal 35.1-43.9 [facility] Comment on above: Performed By: #### L 501.080 #### [facility] [address] [place], [address] WBC (Bld) [#/Vol] 12.6 10*3/uL High 4.4-11.0 [facility] Comment on above: Performed By: #### L 501.080 #### [facility] [address] [place], [address] Carbon dioxide, total [Moles /volume] in Central venous bloodOrdered By: Chuy Santiago on 04-14-2025 CO2 [Moles/Vol] 22.5 mmol/L 21.0-32.0 [facility] Chest 1 View (Portable)on Chest 1 View (Portable) [facility] Imaging Services [address] [place] [address] Chest 1 View (Portable) MR#: [id number] Acct: [id number] Name: BURGOSITALO Mery Rep #: [id number] : 1970 M 54 From: Gen Jack MD PCP: Dr. Zaida Gaston MD Status: [facility] ER Study: Chest 1 View (Portable) Date of Exam: 04/14/25 Exam# [id number] Ordering Dr: Chuy Santiago MD PROCEDURE: CHEST 1 VIEW (PORTABLE) 04/14/2025 REASON FOR EXAM: NONPRODUCTIVE COUGH, FEVER, RALES RIGHT BASE TECHNIQUE: Frontal view of the chest. COMPARISON: 01/2025. FINDINGS: The heart is normal in size. The lungs are clear. No consolidation. No acute osseous abnormalities. RAD/Chest 1 View (Portable) IMPRESSION: No Acute Findings. Reading Location: [id number] CC: Dr. Zaida Gaston MD; Dr. Chuy Santiago MD Dispersion Mixer: Signed Normal [facility] Chloride assayOrdered By: Daylin Santiago on 04-14-2025 Chloride [Moles/Vol] 92 mmol/L Low 98-108 [facility] Comprehensive Metabolic Prof ilon 04-14-2025 Albumin [Mass/Vol] 3.9 g/dL Normal 3.5-5.0 [facility] Comment on above: Performed By: #### L 501.080 #### [facility] [address] [place], [address] Albumin/Globulin [Mass ratio] 0.8 {ratio} Low 0.9-2.4 [facility] Comment on above: Performed By: #### L 501.080 #### [facility] [address] [place], [address] ALK PHOS 141 U/L High 40-129 [facility] Comment on above: Performed By: #### L 501.080 #### [facility] [address] [place], [address] ALT [Catalytic activity/Vol] 12 U/L Normal <=46 [facility] Comment on above: Performed By: #### L 501.080 #### [facility] [address] [place], [address] AST [Catalytic activity/Vol] 18 U/L Normal <=37 [facility] Comment on above: Performed By: #### L 501.080 #### [facility] [address] [place], [address] Bilirubin [Mass/Vol] 0.82 mg/dL Normal 0.00-1.30 [facility] Comment on above: Performed By: #### L 501.080 #### [facility] [address] [place], [address] BUN/CRE 15.9 RATIO Normal 10-20 [facility] Comment on above: Performed By: #### L 501.080 #### [facility] [address] [place], [address] Calcium [Mass/Vol] 10.1 mg/dL Normal 7.6-11.0 [facility] Comment on above: Performed By: #### L 501.080 #### [facility] [address] [place], [address] Chloride [Moles/Vol] 92 mmol/L Low 98-108 [facility] Comment on above: Performed By: #### L 501.080 #### [facility] [address] [place], [address] CO2 [Moles/Vol] 22.5 mmol/L Normal 21.0-32.0 [facility] Comment on above: Performed By: #### L 501.080 #### [facility] [address] [place], [address] Creatinine [Mass/Vol] 1.62 mg/dL High 0.70-1.20 [facility] Comment on above: Performed By: #### L 501.080 #### [facility] [address] [place], [address] ECRCL 49.26 ml/min Low 50-250 [facility] Comment on above: Performed By: #### L 501.080 #### [facility] [address] [place], [address] GAP 16 High 5-15 [facility] Comment on above: Performed By: #### L 501.080 #### [facility] [address] [place], [address] GFR/1.73 sq M.predicted among non-blacks MDRD (S/P/Bld) [Vol rate/Area] 50 mL/min/{1.73_m2} Low >60 [facility] Comment on above: Result Comment: mL/m in/1.73m2 CKD-EPI Creatinine Equation (2020) Performed By: #### L 501.080 #### [facility] [address] [place], [address] Globulin (S) [Mass/Vol] 4.7 g/dL High 2.2-4.2 [facility] Comment on above: Performed By: #### L 501.080 #### [facility] [address] [place], [address] Glucose [Mass/Vol] 429 mg/dL High 70-99 [facility] Comment on above: Performed By: #### L 501.080 #### [facility] [address] [place], [address] Potassium [Moles/Vol] 4.3 mmol/L Normal 3.3-5.1 [facility] Comment on above: Performed By: #### L 501.080 #### [facility] [address] [place], [address] Sodium [Moles/Vol] 130 mmol/L Low 133-145 [facility] Comment on above: Performed By: #### L 501.080 #### [facility] [address] [place], [address] T PROT 8.5 g/dL High 5.9-8.4 [facility] Comment on above: Performed By: #### L 501.080 #### [facility] [address] [place], [address] Urea nitrogen [Mass/Vol] 26 mg/dL High 4-19 [facility] Comment on above: Performed By: #### L 501.080 #### [facility] [address] [place], [address] Emergency Department Summary on 04-14-2025 Emergency Department Summary [facility] Medical Records Department [address] [place] [address] Emergency Department Summary 04/14/25 MR#: [id number] Acct: [id number] Name: ITALO BURGOS Rep #: [id number] : 1970 54 From: Chuy Santiago MD PCP: Dr. Zaida Gaston MD Status:DIS IN Location: [place] [address]-1 HPI History of Present Illness Chief Complaint: Weakness Detail of Chief Complaint: Week, thirst, fever, lack of energy Informant: patient Onset/Context/Timing Onset: Today Context: Sudden Onset Timing: Continuous Quality: Generalized sense of unwellness Location: Generalized Current Severity: Moderate Maximum Severity: Moderate Worsened by: Nothing Relieved by: Nothing Associated Symptoms Associated Symptoms: States blood sugars greater than 200 this morning Narrative Narrative: Patient is a poorly controlled diabetic on insulin since childhood who presents with not feeling well. He was unaware that he has a temperature of 103.4 degrees axillary. He appears ill. Patient denies headache. Denies double vision blurred vision loss of vision. Eyes conklin ears decreased hearing. Does have mild nasal congestion. Denies sore throat. Endorses a nonproductive cough. He denies chest pain. He denies abdominal pain, nausea, vomiting or diarrhea. He denies dysuria, frequency, urgency or hematuria. He denies back or flank pain. He denies any skin lesions. He has history of osteomyelitis, diabetic nephropathy, diabetic retinopathy. Latest A1c was greater than 10. He is also a renal transplant recipient. He states he is presently staying at the homeless alf. Prior similar symptoms: Yes Recent Illness/Hospitalization : No PFSH PFS Medical History MRSA (methicillin resistant staph aureus) culture positive Anxiety Depression Diabetes Former smoker CPAP (continuous [...] (LHC) ( 06/26/11) Atherosclerotic heart disease of [place] coronary artery without angina pectoris Essential hypertension [...] sodium 180 mg 360 mg PO BID kidneys 01/26/2511/03 History tablet,delayed release sulfamethoxazole 400 1 tab PO MOWEFR 01/26/25 03/10/25 History mg-trimethoprim 80 mg tablet carvedilol 12.5 mg tablet 12.5 mg PO BID 03/10/25 03/10/25 H istory escitalopram oxalate 10 mg tablet 10 mg PO DAILY 03/10/25 03/09/25 History aspirin 81 mg chewable tablet 1 tab PO DAILY 04/14/25 Unknown Hi story bupropion HCl 150 mg 24 hr tablet, 150 mg PO DAILY 04/14/25 Unknown History extended release gabapentin 100 mg capsule 100 mg PO QHS 04/14/25 Unknown His tory Allergy/AdvReac Type Severity Reaction Status Date / Time No Known Allergies Allergy Verified 04/04/25 11:08 Family History Mother Heart disease Hypertension Father Cancer Brother Cancer Diabetes Sister Diabetes Other Alcohol abuse Depression H/O transfusion of whole blood Kidney di (more content not included)... Normal [facility] Eosinophil percentageOrdered By: Chuy Santiago on 04-14-2025 Eosinophils/100 WBC (Bld) 0.0 % 0-5 [facility] Erythrocyte distribution wid th ratioOrdered By: Chuycholo Santiago on 04-14-2025 Erythrocyte distribution width (RBC) [Ratio] 12.3 % 11.6-14.6 [facility] Erythrocyte distribution wid th standard deviationOrdered By: Chuycholo Santiago on 04-14-2025 Erythrocyte distribution width (RBC) [Ratio] 39.6 fl 35.1-43.9 [facility] Glomerular filtration rate ( GFR) estimation/1.73 sq m using serum, plasma, or whole bOrdered By: Chuy Santiago on 04-14-2025 GFR/1.73 sq M.predicted among non-blacks MDRD (S/P/Bld) [Vol rate/Area] 50 mL/min/{1.73_m2} Low >60 [facility] Comment on above: mL/min/1.73m2 CKD-EP I Creatinine Equation (2020) Hematocrit Auto (Bld) [Volum e fraction]Ordered By: Chuy Santiago on 04-14-2025 Hematocrit (Bld) [Volume fraction] 39.7 % Low 40-54 [facility] Hemoglobin measurementOrdere d By: Chuy Santiago on 04-14-2025 Hemoglobin (Bld) [Mass/Vol] 13.3 g/dL 13.0-16.5 [facility] Immature granulocytes/100 WB C Auto (Bld)Ordered By: Chuy Santiago on 04-14-2025 Immature granulocytes/100 WBC (Bld) 0.500 % 0.0-0.9 [facility] Comment on above: IG% - Immature Granu locytes (promyelocytes, myelocytes and metamyelocytes) > 1% indicates that a LEFT SHIFT is Present. International normalized rat io (INR) calculationOrdered By: Chuy Santiago on 04-14-2025 INR Coag (Bld) [Relative time] 1.2 {INR} [facility] Ketones Test strip Ql (U)Ord ered By: Chuy Santiago on 04-14-2025 Ketones Ql (U) Negative Negative [facility] Laboratory - Chemistry and C hemistry - challengeOrdered By: Chuy Santiago on 04-14-2025 AST [Catalytic activity/Vol] 18 U/L <38 [facility] Lactic Acidon 04-14-2025 Lactate [Moles/Vol] 1.6 mmol/L Normal 0.0-2.0 [facility] Comment on above: Order Comment: Y Performed By: #### L 501.080 #### [facility] [address] [place], [address] Lactic acid measurementOrder ed By: Chuy Santiago on 04-14-2025 Lactate [Moles/Vol] 1.6 mmol/L 0.0-2.0 [facility] MCV (mean corpuscular volume ) determinationOrdered By: Chuy Santiago on 04-14-2025 MCV (RBC) [Entitic vol] 87.1 fL 80-94 [facility] Mean corpuscular hemoglobin (MCH) determinationOrdered By: Chuycholo Santiago on 04-14-2025 MCH (RBC) [Entitic mass] 29.2 pg 27.0-32.0 [facility] Mean corpuscular hemoglobin concentration (MCHC) determinationOrdered By: Chuycholo Santiago on 04-14-2025 MCHC (RBC) [Mass/Vol] 33.5 g/dL 32-36 [facility] Mean platelet volume determi nationOrdered By: Chuy Santiago on 04-14-2025 Platelet mean volume (Bld) [Entitic vol] 9.4 fL 6.2-12.0 [facility] Microscopic analysis of urin e for red blood cells (RBC)Ordered By: Chuy Santiago on 04-14-2025 Microscopic analysis of urine for red blood cells (RBC) 5-10 SEEN /hpf 0-5 [facility] Monocyte percentageOrdered B y: Chuy Santiago on 04-14-2025 Monocytes/100 WBC (Bld) 11.3 % High 0-10 [facility] Mucus LM Ql (Urine sed)Order ed By: Chuy Santiago on 04-14-2025 Mucus Ql (Urine sed) 0 SEEN /hpf [facility] Neutrophil percentageOrdered By: Chuycholo Santiago on 04-14-2025 Neutrophils/100 WBC (Bld) 75.7 % High 47-70 [facility] Nitrite Test strip Ql (U)Ord ered By: Chuycholo Santiago on 04-14-2025 Nitrite Ql (U) Positive High Negative [facility] No Panel InformationOrdered By: Chuycholo Santiago on 04-14-2025 18 U/L <38 [facility] Nucleated red blood cell per centageOrdered By: [facility] on 04-14-[facility]25 Nucleated RBC/100 WBC (Bld) [Ratio] 0 % 0-5 [facility] Organism identificationOrder ed By: Chuy Santiago on 04-14-2025 Microorganism identified Cx Nom (Unsp spec) Staphylococcus epidermidis Abnormal [facility] Partial Thromboplast Timeon 04-14-2025 aPTT Coag (Bld) [Time] 35.4 s Normal 24.1-36.2 [facility] Comment on above: Performed By: #### L 501.080 #### [facility] [address] [place], [place], [id number] Platelet countOrdered By: Daylin Santiago on 04-14-2025 Platelets (Bld) [#/Vol] 276 10*3/uL 150-450 [facility] Potassium measurement (mass/ volume)Ordered By: Chuycholo Santiago on 04-14-2025 Potassium (Unsp spec) [Mass/Vol] 4.3 mmol/L 3.3-5.1 [facility] Protein Test strip Ql (U)Ord ered By: Chuycholo Santiago on 04-14-2025 Protein Ql (U) 100 mg/dl High Negative [facility] Prothrombin Time w/INRon INR Coag (PPP) [Relative time] 1.2 {INR} Normal [facility] Comment on above: Performed By: #### L 501.080 #### [facility] [address] [place], [place], [address] PT Coag (PPP) [Time] 15.1 s High 11.7-14.9 [facility] Comment on above: Performed By: #### L 501.080 #### [facility] [address] [place], [place], [id number] Prothrombin timeOrdered By: Chuycholo Santiago on 04-14-2025 PT Coag (PPP) [Time] 15.1 s High 11.7-14.9 [facility] RBC Auto (Bld) [#/Vol]Ordere d By: Chuy Santiago on 04-14-2025 RBC (Bld) [#/Vol] 4.56 10*6/uL Low 4.6-6.2 [facility] Serum creatinine measurement (mass/volume)Ordered By: Chuycholo Santiago on 04-14-2025 Creatinine [Mass/Vol] 1.62 mg/dL High 0.70-1.20 [facility] Serum globulin measurementOr dered By: Chuy Santiago on 04-14-2025 Globulin (S) [Mass/Vol] 4.7 g/dL High 2.2-4.2 [facility] Serum glucose measurement (m ass/volume)Ordered By: Chuy Santiago on 04-14-2025 Glucose [Mass/Vol] 429 mg/dL High 70-99 [facility] Serum or plasma alanine andrade otransferase (ALT) measurementOrdered By: Chuycholo Santiago on 04-14-2025 ALT [Catalytic activity/Vol] 12 U/L <47 [facility] Serum or plasma albumin regi urement (mass/volume)Ordered By: Chuycholo Santiago on 04-14-2025 Albumin [Mass/Vol] 3.9 g/dL 3.5-5.0 [facility] Serum or plasma albumin/glob ulin mass ratioOrdered By: Chuycholo Santiago on 04-14-2025 Albumin/Globulin [Mass ratio] 0.8 {ratio} Low 0.9-2.4 [facility] Serum or plasma alkaline cindi sphatase measurementOrdered By: Chuycholo Santiago on 04-14-2025 ALP [Catalytic activity/Vol] 141 U/L High 40-129 [facility] Serum or plasma calcium regi urement (mass/volume)Ordered By: Chuy Santiago on 04-14-2025 Calcium [Mass/Vol] 10.1 mg/dL 7.6-11.0 [facility] Serum or plasma urea nitroge n measurement (mass/volume)Ordered By: Chuy Santiago on 04-14-2025 Urea nitrogen [Mass/Vol] 26 mg/dL High 4-19 [facility] Sodium levelOrdered By: Chuy Santiago on 04-14-2025 Sodium [Moles/Vol] 130 mmol/L Low 133-145 [facility] Squamous epithelial cells de tection in urine sediment by light microscopyOrdered By: Chuy Santiago on 04-14-2025 Epithelial cells.squamous LM Ql (Urine sed) 0 SEEN /hpf 0-5 [facility] Total proteinOrdered By: Chuy Santiago on 04-14-2025 Protein [Mass/Vol] 8.5 g/dL High 5.9-8.4 [facility] Urinalysis, Completeon 04-14 RBC 5-10 SEEN Normal 0-5 [facility] Comment on above: Order Comment: TOPHER CTOR TO SPECIFY Performed By: #### L 501.080 #### [facility] [address] [place], [address] CAST,COARSE GR 0-5 SEEN Normal 0-5 /lpf [facility] Comment on above: Order Comment: COLLE CTOR TO SPECIFY Performed By: #### L 501.080 #### [facility] [address] [place], [address] BACTERIA 1+ /hpf Normal None Seen [facility] Comment on above: Order Comment: COLLE CTOR TO SPECIFY Performed By: #### L 501.080 #### [facility] [address], [address] WBC >100 SEEN Normal 0-5 [facility] Comment on above: Order Comment: COLLE CTOR TO SPECIFY Performed By: #### L 501.080 #### [facility] [address] [place], [address] EPI,SQUAMOUS 0 SEEN Normal 0-5 [facility] Comment on above: Order Comment: TOPHER CTOR TO SPECIFY Performed By: #### L 501.080 #### [facility] [address] [place], [address] Mucus Ql (Urine sed) 0 SEEN Normal [facility] Comment on above: Order Comment: TOPHER CTOR TO SPECIFY Performed By: #### L 501.080 #### [facility] [address] [place], [address] Urine clarityOrdered By: Chuy Santiago on 04-14-2025 Clarity (U) Cloudy Clear [facility] Urine coarse granular cast d etectionOrdered By: Chuy Santiago on 04-14-2025 Coarse Granular Casts LM Ql (Urine sed) 0-5 SEEN /lpf 0-5 /lpf [facility] Urine color determinationOrd ered By: Chuy Santiago on 04-14-2025 Color (U) Yellow Yellow [facility] Urine glucose detectionOrder ed By: Chuy Santiago on 04-14-2025 Glucose Ql (U) 1000 mg/dl High Normal [facility] Urine leukocyte esterase det ection by dipstickOrdered By: Chuy Santiago on 04-14-2025 Leukocyte esterase Test strip Ql (U) 500 /ul High Negative [facility] Urine pHOrdered By: Chuy ramirez on 04-14-2025 pH (U) 6.0 [pH] 5.0 - 8.0 [facility] Urine sediment bacteria coun t by microscopy (number/high power field)Ordered By: Chuy Santiago on 04-14-2025 Bacteria LM.HPF (Urine sed) [#/Area] 1 /[HPF] None Seen [facility] Urine specific gravity measu rementOrdered By: Chuy Santiago on 04-14-2025 Specific gravity (U) [Rel density] 1.015 1.002-1.030 [facility] Urine urobilinogen measureme ntOrdered By: Chuy Santiago on 04-14-2025 Urobilinogen Ql (U) 1 mg/dl High Normal [facility] White blood cell (WBC) count Ordered By: Chuycholo Santiago on 04-14-2025 WBC (Bld) [#/Vol] 12.6 10*3/uL High 4.4-11.0 [facility] White blood cell countOrdere d By: Chuycholo Santiago on 04-14-2025 White blood cell count >100 SEEN /hpf 0-5 [facility] Urine Cultureon 04-06-2025 [facility] Copy of report sent to Infection Control [facility]inter [id number] 04/06/25 0745 ASNIPES. Meth. resistant Staph. aureus Priddy Count >100,000 mecA Testing not performed Meth. resistant Staph. aureus: REACTION cefOXitin Susc Islt POS Doxycycline Islt PARTH <=0.5 Clindamycin.induced Susc Islt NEG Gentamicin Islt PARTH <=0.5 S Linezolid Islt PARTH 2 S Moxifloxacin Islt PARTH <=0.25 S Nitrofurantoin Islt PARTH <=16 S Oxacillin Susc Islt >=4 R Tetracycline Islt PARTH <=1 S TMP SMX Islt PARTH <=10 S Vancomycin Islt PARTH 1 S Normal [facility] Comment on above: Performed By: #### L 500.2500 #### [facility] [address] [place], [address] Absolute lymphocyte countOrd ered By: Chuycholo Santiago on 04-04-2025 Lymphocytes Auto (Unsp spec) [#/Vol] 1.17 10*3/uL 0.83-4.51 [facility] Absolute neutrophil countOrd ered By: [facility] on 04-04-2025 Neutrophils (Bld) [#/Vol] 6.2 10*3/uL 2.0-7.7 [facility] Anion gap in Serum or Plasma Ordered By: Chuy Santiago on 04-04-2025 Anion gap [Moles/Vol] 12 mmol/L 5-15 [facility] Automated lymphocyte count a s percentage of total leukocytesOrdered By: Chuycholo Santiago on 04-04-2025 Lymphocytes/100 WBC Auto (Unsp spec) 14.4 % Low 19-41 [facility] BUN/creatinine ratioOrdered By: Chuy Santiago on 04-04-2025 Urea nitrogen/Creatinine [Mass ratio] 16.7 mg/mg - [facility] Basic Metabolic Profile (BMP )on 04-04-2025 BUN/CRE 16.7 RATIO Normal - [facility] Comment on above: Performed By: #### L 500.2500 #### [facility] [address] [place], [address] Calcium [Mass/Vol] 9.8 mg/dL Normal 7.6-11.0 [facility] Comment on above: Performed By: #### L [id number] #### [facility] [address] [place], [address] Chloride [Moles/Vol] 94 mmol/L Low 98-108 [facility] Comment on above: Performed By: #### L [id number] #### [facility] [address] [place], [address] CO2 [Moles/Vol] 22.2 mmol/L Normal 21.0-32.0 [facility] Comment on above: Performed By: #### L [id number] #### [facility] [address] [place], [address] Creatinine [Mass/Vol] 1.26 mg/dL High 0.70-1.20 [facility] Comment on above: Performed By: #### L [id number] #### [facility] [address] [place], [address] ECRCL 63.33 ml/min Normal 50-250 [facility] Comment on above: Performed By: #### L [id number] #### [facility] [address] [place], [address] GAP 12 Normal 5-15 [facility] Comment on above: Performed By: #### L 500.2500 #### [facility] [address] [place], [address] GFR/1.73 sq M.predicted among non-blacks MDRD (S/P/Bld) [Vol rate/Area] 67 mL/min/{1.73_m2} Normal >60 [facility] Comment on above: Result Comment: mL/m in/1.73m2 CKD-EPI Creatinine Equation (2020) Performed By: #### L 500.2500 #### [facility] [address] [place], [address] Glucose [Mass/Vol] 581 mg/dL Invalid Interpretation Code 70-99 [facility] Comment on above: Result Comment: Crit ical Result(s) Called at: 04/04/2025-12:13 by: Ignacio Smith to Ashlee Gillespie.??Results read back by same. Performed By: #### L 500.2500 #### [facility] [address] [place], [address] Potassium [Moles/Vol] 5.1 mmol/L Normal 3.3-5.1 [facility] Comment on above: Performed By: #### L [id number] #### [facility] [address] [place], [address] Sodium [Moles/Vol] 128 mmol/L Low 133-145 [facility] Comment on above: Performed By: #### L [id number] #### [facility] [address] [place], [address] Urea nitrogen [Mass/Vol] 21 mg/dL High 4-19 [facility] Comment on above: Performed By: #### L [id number] #### [facility] [address] [place], [address] Basophil percentageOrdered B y: Chuy Santiago on 04-04-2025 Basophils/100 WBC (Bld) 0.4 % 0-1 [facility] Bedside Glucoseon 04-04-2025 FINGERSTICK GLU 294 mg/dL High 74-106 [facility] Comment on above: Result Comment: RACHEL GEMENT OF PATIENT CARE PER NURSING PROTOCOL Performed By: #### L 501.080 #### [facility] [address] [place], [address] FINGERSTICK GLU 440 mg/dL High 74-106 [facility] Comment on above: Result Comment: RACHEL GEMENT OF PATIENT CARE PER NURSING PROTOCOL Performed By: #### L 501.080 #### [facility] [address] [place], [address] Bilirubin Test strip Ql (U)O rdered By: Chuy Santiago on 04-04-2025 Bilirubin Ql (U) Negative Negative [facility] CBC W/Diff, Automatedon 03-10 Absolute Lymph 1.17 X10 3/uL Normal 0.83-4.51 [facility] Comment on above: Performed By: #### L 500.2500 #### [facility] [address] [place], [address] Absolute Neut 6.2 X10 3/uL Normal 2.0-7.7 [facility] Comment on above: Performed By: #### L [id number] #### [facility] [address] [place], [address] Basophils/100 WBC (Bld) 0.4 % Normal 0-1 [facility] Comment on above: Performed By: #### L [id number] #### [facility] [address] [place], [address] Eosinophils/100 WBC (Bld) 0.7 % Normal 0-5 [facility] Comment on above: Performed By: #### L 500.2500 #### [facility] [address] [place], [address] Erythrocyte distribution width (RBC) [Ratio] 12.4 % Normal 11.6-14.6 [facility] Comment on above: Performed By: #### L 500.2500 #### [facility] [address] [place], [address] Hematocrit (Bld) [Volume fraction] 36.8 % Low 40-54 [facility] Comment on above: Performed By: #### L 500.2500 #### [facility] [address] [place], [address] Hemoglobin (Bld) [Mass/Vol] 12.3 g/dL Low 13.0-16.5 [facility] Comment on above: Performed By: #### L 500.2500 #### [facility] [address] [place], [address] IG% 0.200 Normal 0.0-0.9 [facility] Comment on above: Result Comment: IG% - Immature Granulocytes (promyelocytes, myelocytes and metamyelocytes) > 1% indicates that a LEFT SHIFT is Present. Performed By: #### L 500.2500 #### [facility] [place], [address] Lymphocytes/100 WBC (Bld) 14.4 % Low 19-41 [facility] Comment on above: Performed By: #### L [id number] #### [facility] [address] [place], [address] MCH (RBC) [Entitic mass] 29.8 pg Normal 27.0-32.0 [facility] Comment on above: Performed By: #### L 500.2500 #### [facility] [address] [place], [address] MCHC (RBC) [Mass/Vol] 33.4 g/dL Normal 32-36 [facility] Comment on above: Performed By: #### L 500.2500 #### [facility] [address] [place], [address] MCV (RBC) [Entitic vol] 89.1 fL Normal 80-94 [facility] Comment on above: Performed By: #### L [id number] #### [facility] [address] [place], [address] Monocytes/100 WBC (Bld) 8.7 % Normal 0-10 [facility] Comment on above: Performed By: #### L [id number] #### [facility] [address] [place], [address] Neutrophils/100 WBC (Bld) 75.6 % High 47-70 [facility] Comment on above: Performed By: #### L 500.2500 #### [facility] [address] [place], [address] Nucleated RBC (Bld) [#/Vol] 0 10*3/uL Normal 0-5 [facility] Comment on above: Performed By: #### L 500.2500 #### [facility] [address] [place], [address] Platelet mean volume (Bld) [Entitic vol] 9.3 fL Normal 6.2-12.0 [facility] Comment on above: Performed By: #### L 500.2500 #### [facility] [address] [place], [address] Platelets (Bld) [#/Vol] 341 10*3/uL Normal 150-450 [facility] Comment on above: Performed By: #### L 500.2500 #### [facility] [address] [place], [address] RBC (Bld) [#/Vol] 4.13 10*6/uL Low 4.6-6.2 [facility] Comment on above: Performed By: #### L 500.2500 #### [facility] [address] [place], [address] RDW SD 40.5 fl Normal 35.1-43.9 [facility] Comment on above: Performed By: #### L 500.2500 #### [facility] [address] [place], [address] WBC (Bld) [#/Vol] 8.2 10*3/uL Normal 4.4-11.0 [facility] Comment on above: Performed By: #### L 500.2500 #### [facility] [address] [place], [address] Carbon dioxide, total [Moles /volume] in Central venous bloodOrdered By: Chuy Santiago on 04-04-2025 CO2 [Moles/Vol] 22.2 mmol/L 21.0-32.0 [facility] Chloride assayOrdered By: Daylin Santiago on 04-04-2025 Chloride [Moles/Vol] 94 mmol/L Low 98-108 [facility] Emergency Department Summary on 04-04-2025 Emergency Department Summary [facility] Medical Records Department [address] [place] [address] Emergency Department Summary 04/04/25 MR#: [id number] Acct: [id number] Name: ITALO BURGOS Rep #: [id number] : [id number] 54 From: Chuy Santiago MD PCP: Dr. Zaida Gaston MD Status:REG ER Location: ED HPI History of Present Illness Chief Complaint: Numb/Ting Detail of Chief Complaint: Bilateral hand numbness, cough and nausea and vomiting Informant: patient Onset/Context/Timing Onset: Yesterday Context: Sudden Onset Timing: Continuous Quality: Numbness hands only, nausea and vomiting Location: Hands and GI Current Severity: Mild Maximum Severity: Mild Worsened by: Nothing Relieved by: Nothing Associated Symptoms Associated Symptoms: Does endorse weight loss. He is on weekly injections for his diabetes Narrative Narrative: Patient is a 54-year-old male. He presents from alf. He arrived by ambulance. He denies headache. He denies double vision, blurred vision or loss of vision. He denies ringing in his ears or decreased hearing. He denies rhinorrhea, congestion, postnasal drainage or sore throat. He does have a slight cough. The cough is nonproductive. Yesterday he had nausea and vomiting. There was no blood or coffee-ground's noted in his emesis. He denies black or maroon-colored stool. He does endorse frequency and thirst. He also endorses dry mouth. He denies nocturia. He denies hematuria, dysuria or change in the color of his urine. He denies myalgias or arthralgias. He denies problems with balance or coordination. He denies perioral numbness or numbness or tingling in his feet. He does not give symptoms of claudication. He does admit that he had more hair on his legs when he was younger. His last A1c was 3 months ago and was 13. Prior similar symptoms: No Recent Illness/Hospitalization : No PFSH [facility] Medical History Anxiety Depression Diabetes Former smoker CPAP (continuous [...] (LHC) ( 06/26/11) Atherosclerotic heart disease of [place] coronary artery without angina pectoris Essential hypertension [...] / Time No Known Allergies Allergy Verified 04/04/25 11:08 Family History Mother Heart disease Hypertension Father Cancer Brother Cancer Diabetes Sister Diabetes Other Alcohol abuse Depression H/O (more content not included)... Normal [facility] Eosinophil percentageOrdered By: Chuy Santiago on 04-04-2025 Eosinophils/100 WBC (Bld) 0.7 % 0-5 [facility] Erythrocyte distribution wid th ratioOrdered By: Chuy Santiago on 04-04-2025 Erythrocyte distribution width (RBC) [Ratio] 12.4 % 11.6-14.6 [facility] Erythrocyte distribution wid th standard deviationOrdered By: Chuy Santiaog on 04-04-2025 Erythrocyte distribution width (RBC) [Ratio] 40.5 fl 35.1-43.9 [facility] Glomerular filtration rate ( GFR) estimation/1.73 sq m using serum, plasma, or whole bOrdered By: Chuy Santiago on 04-04-2025 GFR/1.73 sq M.predicted among non-blacks MDRD (S/P/Bld) [Vol rate/Area] 67 mL/min/{1.73_m2} >60 [facility] Comment on above: mL/min/1.73m2 CKD-EP I Creatinine Equation (2020) Glucose measurement at bedsi deOrdered By: Chuy Santiago on 04-04-2025 Glucose [Mass/Vol] 294 mg/dL High 74-106 [facility] Comment on above: MANAGEMENT OF PATIEN T CARE PER NURSING PROTOCOL Hematocrit Auto (Bld) [Volum e fraction]Ordered By: Chuy Santiago on 04-04-2025 Hematocrit (Bld) [Volume fraction] 36.8 % Low 40-54 [facility] Hemoglobin measurementOrdere d By: Chuy Santiago on 04-04-2025 Hemoglobin (Bld) [Mass/Vol] 12.3 g/dL Low 13.0-16.5 [facility] Immature granulocytes/100 WB C Auto (Bld)Ordered By: Chuy Santiago on 04-04-2025 Immature granulocytes/100 WBC (Bld) 0.200 % 0.0-0.9 [facility] Comment on above: IG% - Immature Granu locytes (promyelocytes, myelocytes and metamyelocytes) > 1% indicates that a LEFT SHIFT is Present. Ketones Test strip Ql (U)Ord ered By: Chuy Santiago on 04-04-2025 Ketones Ql (U) Negative Negative [facility] MCV (mean corpuscular volume ) determinationOrdered By: Chuy Santiago 04-04-2025 MCV (RBC) [Entitic vol] 89.1 fL 80-94 [facility] Mean corpuscular hemoglobin (MCH) determinationOrdered By: Chuy Santiago 04-04-2025 MCH (RBC) [Entitic mass] 29.8 pg 27.0-32.0 [facility] Mean corpuscular hemoglobin concentration (MCHC) determinationOrdered By: Chuy Santiago 04-04-2025 MCHC (RBC) [Mass/Vol] 33.4 g/dL 32-36 [facility] Mean platelet volume determi nationOrdered By: Chuy Santiago 04-04-2025 Platelet mean volume (Bld) [Entitic vol] 9.3 fL 6.2-12.0 [facility] Microscopic analysis of urin e for red blood cells (RBC)Ordered By: Chuy Santiago 04-04-2025 Microscopic analysis of urine for red blood cells (RBC) 5-10 SEEN /hpf 0-5 [facility] Monocyte percentageOrdered B y: Chuycholo Thompsono on 04-04-2025 Monocytes/100 WBC (Bld) 8.7 % 0-10 [facility] Mucus LM Ql (Urine sed)Order ed By: Chuy Santiago on 04-04-2025 Mucus Ql (Urine sed) 0 SEEN /hpf [facility] Neutrophil percentageOrdered By: Chuy Santiago on 04-04-2025 Neutrophils/100 WBC (Bld) 75.6 % High 47-70 [facility] Nitrite Test strip Ql (U)Ord ered By: Chuy Santiago on 04-04-2025 Nitrite Ql (U) Positive High Negative [facility] Nucleated red blood cell per centageOrdered By: Chuy Santiago on 04-04-2025 Nucleated RBC/100 WBC (Bld) [Ratio] 0 % 0-5 [facility] Platelet countOrdered By: Daylin Santiago on 04-04-2025 Platelets (Bld) [#/Vol] 341 10*3/uL 150-450 [facility] Potassium measurement (mass/ volume)Ordered By: Chuycholo Santiago on 04-04-2025 Potassium (Unsp spec) [Mass/Vol] 5.1 mmol/L 3.3-5.1 [facility] Protein Test strip Ql (U)Ord ered By: Chuy Santiago on 04-04-2025 Protein Ql (U) 30 mg/dl High Negative [facility] RBC Auto (Bld) [#/Vol]Ordere d By: Chuy Santiago on 04-04-2025 RBC (Bld) [#/Vol] 4.13 10*6/uL Low 4.6-6.2 [facility] Serum creatinine measurement (mass/volume)Ordered By: Chuy Santiago on 04-04-2025 Creatinine [Mass/Vol] 1.26 mg/dL High 0.70-1.20 [facility] Serum glucose measurement (m ass/volume)Ordered By: Chuy Santiago on 04-04-2025 Glucose [Mass/Vol] 581 mg/dL High 70-99 [facility] Comment on above: Critical Result(s) C alled at: 04/04/2025-12:13 by: Ignacio Smith to Ashlee Gillespie. Results read back by same. Serum or plasma calcium regi urement (mass/volume)Ordered By: Chuy Santiago on 04-04-2025 Calcium [Mass/Vol] 9.8 mg/dL 7.6-11.0 [facility] Serum or plasma urea nitroge n measurement (mass/volume)Ordered By: Chuy Santiago on 04-04-2025 Urea nitrogen [Mass/Vol] 21 mg/dL High 4-19 [facility] Sodium levelOrdered By: Chuycholo Santiago on 04-04-2025 Sodium [Moles/Vol] 128 mmol/L Low 133-145 [facility] Squamous epithelial cells de tection in urine sediment by light microscopyOrdered By: Chuycholo Santiago on 04-04-2025 Epithelial cells.squamous LM Ql (Urine sed) 0 SEEN /hpf 0-5 [facility] Urinalysis, Completeon 04-04 RBC 5-10 SEEN Normal 0-5 [facility] Comment on above: Order Comment: CLEAN CATCH Performed By: #### L 501.080 #### [facility] [address] [place], [address] BACTERIA 1+ /hpf Normal None Seen [facility] Comment on above: Order Comment: CLEAN CATCH Performed By: #### L 501.080 #### [facility] [address] [place], [address] WBC 10-25 SEEN Normal 0-[address] [place] [address] Comment on above: Order Comment: CLEAN CATCH Performed By: #### L 501.080 #### [facility] [address] [place], [address] EPI,SQUAMOUS 0 SEEN Normal 0-5 [facility] Comment on above: Order Comment: CLEAN CATCH Performed By: #### L 501.080 #### [facility] [address] [place], [address] Mucus Ql (Urine sed) 0 SEEN Normal [facility] Comment on above: Order Comment: CLEAN CATCH Performed By: #### L 501.080 #### [facility] [address] [place], [address] Urine clarityOrdered By: Chuy Santiago on 04-04-2025 Clarity (U) Sl. Cloudy Clear [facility] Urine color determinationOrd ered By: Chuy Santiago on 04-04-2025 Color (U) Yellow Yellow [facility] Urine cultureOrdered By: Chuy Santiago on 04-04-2025 Bacteria identified Cx Nom (U) Meth. resistant Staph. aureus Abnormal [facility] Urine glucose detectionOrder ed By: Chuy Santiago on 04-04-2025 Glucose Ql (U) 1000 mg/dl High Normal [facility] Urine leukocyte esterase det ection by dipstickOrdered By: Chuy Santiago on 04-04-2025 Leukocyte esterase Test strip Ql (U) 500 /ul High Negative [facility] Urine pHOrdered By: Chuy ramirez on 04-04-2025 pH (U) 6.5 [pH] 5.0 - 8.0 [facility] Urine sediment bacteria coun t by microscopy (number/high power field)Ordered By: Chuy Santiago on 04-04-2025 Bacteria LM.HPF (Urine sed) [#/Area] 1 /[HPF] None Seen [facility] Urine specific gravity measu rementOrdered By: Chuy Santiago on 04-04-2025 Specific gravity (U) [Rel density] 1.010 1.002-1.030 [facility] Urine urobilinogen measureme ntOrdered By: Chuy Santiago on 04-04-2025 Urobilinogen Ql (U) 1 mg/dl High Normal [facility] White blood cell (WBC) count Ordered By: Chuy Santiago on 04-04-2025 WBC (Bld) [#/Vol] 8.2 10*3/uL 4.4-11.0 [facility] White blood cell countOrdere d By: Chuy Santiago on 04-04-2025 White blood cell count 10-25 SEEN /hpf 0-5 [facility] Abdomen/Pelvis without Conto n 03-10-2025 Abdomen/Pelvis without Cont [facility] Imaging Services [address] [place] [address] Abdomen/Pelvis without Cont MR#: [id number] Acct: [id number] Name: ITALO BURGOS Rep #: [id number] : 1970 M 54 From: John Solis MD PCP: Dr. Zaida Gaston MD Status: REG ER Study: Abdomen/Pelvis without Cont Date of Exam: 11/03 Exam# [id number] Ordering Dr: Byron Saldana DO EXAM: CT [...] the colon consistent with constipation. Reading Location: [facility] CC: Dr. Zaida Gaston MD; Dr. Byron Saldana DO Dispersion Mixer: Signed Normal [facility] Anion gap in Serum or Plasma Ordered By: Chuy Santiago on 03-10-2025 Anion gap [Moles/Vol] 11 mmol/L - [facility] BUN/creatinine ratioOrdered By: Chuy Santiago on 03-10-2025 Urea nitrogen/Creatinine [Mass ratio] 18.8 mg/mg - [facility] Basic Metabolic Profile (BMP )on 03-10-2025 BUN/CRE 18.8 RATIO Normal - [facility] Comment on above: Performed By: #### L 400.0001 #### [facility] [address] [facility]. [facility] [address] Calcium [Mass/Vol] 9.3 mg/dL Normal 7.6-11.0 [facility] Comment on above: Performed By: #### L 400.0001 #### [facility] [address] [facility]. [facility] [address] Chloride [Moles/Vol] 100 mmol/L Normal 98-108 [facility] Comment on above: Performed By: #### L 400.0001 #### [facility] [address] [facility] [address] CO2 [Moles/Vol] 23.9 mmol/L Normal 21.0-32.0 [facility] Comment on above: Performed By: #### L 400.0001 #### [facility] [address] [facility] [address] Creatinine [Mass/Vol] 1.20 mg/dL Normal 0.70-1.20 [facility] Comment on above: Performed By: #### L 400.0001 #### [facility] [address] [place], [address] ECRCL 66.50 ml/min Normal 50-250 [facility] Comment on above: Performed By: #### L 400.0001 #### [facility] [address] [place], [address] GAP 11 Normal 5-15 [facility] Comment on above: Performed By: #### L 400.0001 #### [facility] [address] [place], [address] GFR/1.73 sq M.predicted among non-blacks MDRD (S/P/Bld) [Vol rate/Area] 71 mL/min/{1.73_m2} Normal >60 [facility] Comment on above: Result Comment: mL/m in/1.73m2 CKD-EPI Creatinine Equation (2020) Performed By: #### L 400.0001 #### [facility] [address] [place], [address] Glucose [Mass/Vol] 307 mg/dL High 70-99 [facility] Comment on above: Performed By: #### L 400.0001 #### [facility] [address] [place], [address] Potassium [Moles/Vol] 4.2 mmol/L Normal 3.3-5.1 [facility] Comment on above: Result Comment: Hemo lysis present, Results??could be affected. ?? Performed By: #### L 400.0001 #### [facility] [address] [place], [address] Sodium [Moles/Vol] 134 mmol/L Normal 133-145 [facility] Comment on above: Performed By: #### L 400.0001 #### [facility] [address] [place], [address] Urea nitrogen [Mass/Vol] 23 mg/dL High 4-19 [facility] Comment on above: Performed By: #### L 400.0001 #### [facility] [address] [place], [address] Bilirubin Test strip Ql (U)O rdered By: Byron Saldana on 03-10-2025 Bilirubin Ql (U) Negative Negative [facility] Carbon dioxide, total [Moles /volume] in Central venous bloodOrdered By: Chuy Santiago on 03-10-2025 CO2 [Moles/Vol] 23.9 mmol/L 21.0-32.0 [facility] Chloride assayOrdered By: Daylin Santiago on 03-10-2025 Chloride [Moles/Vol] 100 mmol/L 98-108 [facility] Emergency Department Summary on 03-10-2025 Emergency Department Summary [facility] Medical Records Department [address] [place] [address] Emergency Department Summary 03/10/25 MR#: [id number] Acct: [id number] Name: ITALO BURGOS Rep #: [id number] : 1970 54 From: Byron Saldana DO [...] Patient denies any neck or back pain. [facility] Medical History (Updated 03/10/25 @ 20:40 by [...] (LHC) ( 06/26/11) Atherosclerotic heart disease of [place] coronary artery without angina pectoris Essential hypertension [...] ENT ENT (more content not included)... Normal [facility] Glomerular filtration rate ( GFR) estimation/1.73 sq m using serum, plasma, or whole bOrdered By: Chuy Santiago on 03-10-2025 GFR/1.73 sq M.predicted among non-blacks MDRD (S/P/Bld) [Vol rate/Area] 71 mL/min/{1.73_m2} >60 [facility] Comment on above: mL/min/1.73m2 CKD-EP I Creatinine Equation (2020) Ketones Test strip Ql (U)Ord ered By: Byron Saldana on 03-10-2025 Ketones Ql (U) Negative Negative [facility] Microscopic analysis of urin e for red blood cells (RBC)Ordered By: Byron Saldana on 03-10-2025 Microscopic analysis of urine for red blood cells (RBC) 10-25 SEEN /hpf 0-5 [facility] Mucus LM Ql (Urine sed)Order ed By: Byron Saldana on 03-10-2025 Mucus Ql (Urine sed) 0 SEEN /hpf [facility] Nitrite Test strip Ql (U)Ord ered By: Byron Saldana on 03-10-2025 Nitrite Ql (U) Positive High Negative [facility] Potassium measurement (mass/ volume)Ordered By: Chuy Santiago on 03-10-2025 Potassium (Unsp spec) [Mass/Vol] 4.2 mmol/L 3.3-5.1 [facility] Comment on above: Hemolysis present, R esults could be affected. Protein Test strip Ql (U)Ord ered By: Byron Saldana on 03-10-2025 Protein Ql (U) 100 mg/dl High Negative [facility] Serum creatinine measurement (mass/volume)Ordered By: [facility] on 03-10-2025 Creatinine [Mass/Vol] 1.20 mg/dL 0.70-1.20 [facility] Serum glucose measurement (m ass/volume)Ordered By: [facility] on 03-10-2025 Glucose [Mass/Vol] 307 mg/dL High 70-99 [facility] Serum or plasma calcium regi urement (mass/volume)Ordered By: [facility] on 03-10-2025 Calcium [Mass/Vol] 9.3 mg/dL 7.6-11.0 [facility] Serum or plasma urea nitroge n measurement (mass/volume)Ordered By: [facility] on 03-10-2025 Urea nitrogen [Mass/Vol] 23 mg/dL High 4-19 [facility] Sodium levelOrdered By: [facility] on 03-10-2025 Sodium [Moles/Vol] 134 mmol/L 133-145 [facility] Squamous epithelial cells de tection in urine sediment by light microscopyOrdered By: Byron Saldana on 03-10-2025 Epithelial cells.squamous LM Ql (Urine sed) 0-5 SEEN /hpf 0-5 [facility] Urinalysis, Completeon 03-10 BACTERIA 2+ /hpf Normal None Seen [facility] Comment on above: Order Comment: ALAINA TER SPECIMEN Performed By: #### L 501.080 #### [facility] [address] [place], [place], [address] EPI,SQUAMOUS 0-5 SEEN Normal 0-5 [facility] Comment on above: Order Comment: ALAINA TER SPECIMEN Performed By: #### L 501.080 #### [facility] [address] [place], [address] RBC 10-25 SEEN Normal 0-5 [facility] Comment on above: Order Comment: ALAINA TER SPECIMEN Performed By: #### L 501.080 #### [facility] [address] [place], [address] WBC 50-100 SEEN Normal 0-5 [facility] Comment on above: Order Comment: ALAINA TER SPECIMEN Performed By: #### L 501.080 #### [facility] [address], [address] Mucus Ql (Urine sed) 0 SEEN Normal [facility] Comment on above: Order Comment: ALAINA TER SPECIMEN Performed By: #### L 501.080 #### [facility] [address] [place], [place], [address] Urine clarityOrdered By: Marline Saldana on 03-10-2025 Clarity (U) Cloudy Clear [facility] Urine color determinationOrd ered By: Byron Saldana on 03-10-2025 Color (U) Yellow Yellow [facility] Urine glucose detectionOrder ed By: Byron Saldana on 03-10-2025 Glucose Ql (U) 1000 mg/dl High Normal [facility] Urine leukocyte esterase det ection by dipstickOrdered By: Byron Saldana on 03-10-2025 Leukocyte esterase Test strip Ql (U) 500 /ul High Negative [facility] Urine pHOrdered By: Byron means on 03-10-2025 pH (U) 6.0 [pH] 5.0 - 8.0 [facility] Urine sediment bacteria coun t by microscopy (number/high power field)Ordered By: Byron Saldana on 03-10-2025 Bacteria LM.HPF (Urine sed) [#/Area] 2 /[HPF] None Seen [facility] Urine specific gravity measu rementOrdered By: Byron Saldana on 03-10-2025 Specific gravity (U) [Rel density] 1.015 1.002-1.030 [facility] Urine urobilinogen measureme ntOrdered By: Byron Saldana on 03-10-2025 Urobilinogen Ql (U) Normal mg/dl Normal [facility] White blood cell countOrdere d By: Byron Benedictoedmond on 03-10-2025 White blood cell count 50-100 SEEN /hpf 0-5 [facility] BRIEF OP NOTon 02-25-2025 BRIEF OP NOT HNO ID: [id number] Author: JONNY SOFIA MD Service: Radiology Author [...] BRIEF OPERATIVE / PROCEDURE NOTE LOG ID: [id number] SURGERY/PROCEDURE DATE: 02/25/2025 INCISION/PROCEDURE START TIME: 10:05 AM INCISION CLOSE/PROCEDURE END TIME: 10:26 AM SURGEON(S)/PROCEDURALIS T(S) AND BALANCING MACHINE SET UP WORKER(S): Surgeons and Role: * Dona Martinez MD - Primary * Jonny Sofia MD - Assisting No Additional Staff SURGERY/PROCEDURE(S): perc. Neph tube exchange 10F ANESTHESIA: Procedural Sedation FINDINGS: successful exchange ESTIMATED BLOOD LOSS: 0 ml SPECIMENS: None COMPLICATIONS: None IMPLANTS: 10Fr [employer] [place] [employer] CLOSURE TECHNIQUE: Non-primary PRE-OP/PRE-PROCEDURE DIAGNOSIS: 54M s/p renal transplant 2020 c/b obstructing ureteral stone with hydronephrosis s/p perc neph on 01/27 POST-OP/POST-PROCEDURE DIAGNOSIS: Same as Preop SIGNATURE: Jonny Sofia MD PATIENT NAME: Italo Burgos DATE: February 25, 2025 TIME: 10:31 AM Normal [facility] CNPNon 02-25-2025 CNPN Telephone (Angio) ITALO BURGOS ([id number]) 1970 M Date Time Provider Department 02/25/25 [...] this exchange be done in the region? [place] If the patient has an already existing exchange appointment can that one be cancelled? Yes Any other pertinent information needed for schedulers?transplant kidney Elizabeth Sweet 02/25/2025 3:50 PM Signed Pt is due 05/06. Need qgenda schedule. Allergies As of Date: 02/25/2025 (No Known Allergies) Date Reviewed: 02/25/2025 Reviewed by: Jannie Melvin, RN - Fully Assessed Reason for Visit: IR Outpatient Tube Appointment Request [[id number]] Prescriptions as of 02/25/2025 - mycophenolate sodium [...] 3 mg/actuation nasal spray (BAQSIMI) Use 1 [place] in the nose as needed for low [...] Encounter Status (more content not included)... [facility] H[facility] PHYSICALon HISTORY PHYSICAL HNO ID: [id number] Author: JONNY SOFIA MD Service: Radiology Author [...] hydronephrosis s/p perc neph on 01/27; 10F [employer] routine exchange PROCEDURE SCHEDULED: Procedure(s) with comments: PERC EXCHANGE NEPHROSTOMY CATH, INCLUDING DIAGNOSTIC NEPHROSTOGRAM/URETEROGR AM WHEN PERFORMED,IMAGING GUIDANCE AND ALL ASSOCIATED RAD PETER (N/A) - NEPH TUBE CHANGE 4 WKS FROM 01/27 PER R/F RADIOLOGY ORDER PLACED: PAST ANESTHESIA HISTORY: No history of adverse event PAST MEDICAL HISTORY Diagnosis Date Acute diastolic (congestive) heart failure (HCC) Bronchitis Chronic kidney failure, stage 4 (severe) ([facility]) 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 ([facility]) 12/16/2018 Depression Detached retina DM type 2, goal HbA1c < 7% ([facility]) Erectile dysfunction, unspecified erectile dysfunction type ESRD (end stage renal disease) ([facility]) GERD (gastroesophageal reflux disease) Hyperlipidemia Kidney replaced by transplant ([facility]) Kidney stones LUANNE (obstructive sleep apnea) PNA (pneumonia) Proliferative retinopathy 02/10/2019 PTE (post-transplant erythrocytosis) Snoring Unspecified essential hypertension Vitamin D deficiency Vitamin D deficiency PAST SURGICAL HISTORY Procedure Laterality Date AMPUTATION TOE,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 Normal [facility] IR EXCHANGE CATH PERC NEPHon 02-25-2025 IR EXCHANGE CATH PERC NEPH * * *Final Report* * * DATE OF EXAM: Feb 25 2025 10:26AM [facility] 0777 - IR EXCHANGE CATH PERC NEPH [...] contrast injection. Pre-existing genitourinary catheter: 10 F [employer] [place] [employer] nephrostomy Genitourinary catheter(s) placed: 10 F [employer] nephrostomy Findings: Distal ureteral obstruction present [...] The procedure was performed by the: the funeral home assistant, and the attending radiologist personally supervised the entire procedure. The attending radiologist performed the following procedural activities: Close supervision and assistance of the procedure IMPRESSION: Successful exchange of a 10French nephrostomy tube in the right (more content not included)... Normal [facility] NURSING PROGon 02-25-2025 NURSING PROG HNO ID: [id number] Author: SONNY MANDUJANO RN Service: Interventional Radiology Author Type: Registered Nurse Type: Nursing Progress Note Filed: 02/26/2025 08:09 Note Text: Attempted post procedure phone call. Left VM for patient to return call to [phone] with any questions/concerns. Normal [facility] NURSING PROG HNO ID: [id number] Author: KAYCEE FLETCHER, ANDER Service: Nursing Author Type: Registered Nurse Type: Nursing Progress Note Filed: 02/25/2025 09:15 Note Text: Pt BG 409, on recheck BG 445. Dr. Ry corado, pt is asymptomatic. [facility]- Dr. Sofia bedside to assess pt. Normal [facility] NURSING PROG HNO ID: [id number] Author: KAYCEE FLETCHER, RN Service: Nursing Author Type: Registered Nurse Type: Nursing Progress Note Filed: 02/25/2025 08:39 Note Text: Pt took a cab here without a family member for his neph tube exchange. Pt is agreeable to local anesthetic only- spoke with Dr. Martinez who states ok for patient to have procedure and go home with cab if local anesthetic only. Normal [facility] NURSING PROGon 02-18-2025 NURSING PROG HNO ID: [id number] Author: KAYCEE FLETCHER, NADER Service: Nursing Author Type: Registered Nurse Type: Nursing Progress Note Filed: 02/23/2025 08:14 Note Text: Confirmed instructions on 02/23 with Italo Please call [phone] to confirm you have received the below instructions for your upcoming radiology procedure. Italo Burgos is scheduled for the following procedure Nephrostomy tube exchange . Scheduled on 02/25/25, at [facility]. If instructions are not followed your procedure may need to be cancelled or rescheduled. Arrival: Arrival at 8:00 AM to desk QB-1 ([facility]) and check in for your procedure. Please bring your Photo ID and Insurance Card. A general consent may need to be signed. System Trainer parking is located in front of the main entrance ( building) at [address] [place], [place]. Garage parking is located across the street from the main entrance at [address] [place], [place]. From the main entrance, go straight until you see a sign directing you to the elevators. Take a LEFT. Go all the [...] allergy? No Labs: Labs completed on 01/29/25. Florist'S Decorator/Transportation: You will need a bottom hoop driver for your procedure. You will need a responsible adult to accompany you to and from the procedure. If you develop any of the following symptoms before your procedure, please call [phone]. Chills, joint pain, rash, sore throat, cough, [...] If you have any questions please call [phone] Normal [facility] CNPKaley 02-15-2025 CNPN Telephone (PHMEWO) ITALO BURGOS ([id number]) 1970 M Date Time Provider Department 02/15/25 VERNA JENSEN PHWO During your visit today, we recorded the following information about you: [facility] 02/15/2025 9:52 AM Signed Called patient for scheduled phone appt but unable to reach after multiple attempts. LMOM for mobile phone. Unable to connect to home phone - maybe disconnected? Primary Care Pharmacy Rescheduling Outreach Call center, please contact patient and reschedule telephone visit for Diabetes management within ~4 week(s). (Visit length: 60 minutes) Thank you, Verna Jensen, [facility] 02/15/2025 9:51 AM [facility] 02/17/2025 9:26 AM Signed 2nd attempt to reschedule appt. Called and lmom. Sent Best [employer] English message. [facility] 02/22/2025 8:43 AM Signed Called and spoke with patient. Rescheduled appt for 03/08. Verna Jensen, PharmD, [facility] Primary Care Clinical Pharmacist Allergies As of [...] 3 mg/actuation nasal spray (BAQSIMI) Use 1 [place] in the nose as needed for low [...] Encounter Status:Closed by VERNA JENSEN on 02/15/25 [facility] CNOVgerardo 02-11-2025 CNOV Office Visit (TXCTGL ) ITALO BURGOS ([id number]) 1970 M Date Time Provider Department 02/11/25 10:00 AM [facility] TXCTGL During your visit today, we recorded the following information about you: Referring Provider: ALANA KENT [[id number]] Allergies As of Date: 02/11/2025 (No Known Allergies) Date Reviewed: 02/05/2025 Reviewed by: Francheska Carrington MA - Fully Assessed Primary Visit Diagnosis:Kidney replaced by transplant ([facility]) [Z94.0] Prescriptions as of 02/12/2025 - mycophenolate [...] 3 mg/actuation nasal spray (BAQSIMI) Use 1 [place] in the nose as needed for low [...] Encounter Status:Closed by DALE RANGEL on 02/12/25 Normal [facility] CNPNon 02-09-2025 CNPN Telephone (PODCCP) ITALO BURGOS ([id number]) 1970 M Date Time Provider Department 02/09/25 [facility] During your visit today, we recorded the [...] 3 mg/actuation nasal spray (BAQSIMI) Use 1 [place] in the nose as needed for low [...] Encounter Status:Closed by KERRY OSCAR on 02/09/25 [facility] [place] 02-08-2025 ANDREWS Telephone (TXCTGL) ITALO BURGOS ([id number]) 1970 M Date Time Provider Department 02/08/25 AMANDA HAYES TXCTGL During your visit today, we recorded the following information about you: Amanda Hayes LISW 02/08/2025 2:03 PM Signed SW attempted to return pt's phone call. SW left pt a voicemail and will await return phone call. SARA Sahu-S Transplant Photocopying Equipment Repairer Allergies As of Date: 02/08/2025 (No Known [...] 3 mg/actuation nasal spray (BAQSIMI) Use 1 [place] in the nose as needed for low [...] Status:Closed by AMANDA HAYES on 02/08/25 Normal [facility] Emergency Department Summary on 02-07-2025 Emergency Department Summary [facility] Medical Records Department [address] [place] [address] Emergency Department Summary 02/07/25 MR#: [id number] Acct: [id number] Name: ITALO BURGOS Rep #: [id number] : 1970 54 From: Toni Nelson DO [...] kidney and therefore was transferred up to [facility] where they remove the kidney stone and placed a urostomy tube. Patient notices that his bag is leaking and would like a new bag. He denies fevers or chills or sweats. He is otherwise doing well. His transplant was 5 years ago. [facility] Medical History Congestive heart failure (CHF) [...] (LHC) ( 06/26/11) Atherosclerotic heart disease of [place] coronary artery without angina pectoris Essential hypertension [...] by transplant H (more content not included)... [facility] 02-05-2025 OV Office Visit (INTMWS ) BURGOSITALO ([id number]) 1970 M Date Time Provider Department 02/05/25 11:40 AM ZAIDA GASTON During your visit today, we [...] a follow-up appointment with Urology at the [facility] next to discuss the next steps, including whether the tube will be removed or kept in place. Dr. Maryjane Quinteros will see you at [facility]. - Please ensure you have transportation arranged [...] depression. This prescription has been sent to [facility]. - If you experience any side effects or feel the medication is not helping, please let me know so we can adjust your treatment. We discussed your living situation and overall well-being: - You are currently staying at [facility], a alf for homeless individuals. I encourage you to [...] new device. Italo is currently residing at [facility], a alf for homeless individuals, since September. He previously [...] 12.5 m (more content not included)... [facility] ANDREN Telephone (Angio) ITALO BURGOS ([id number]) 1970 M Date Time Provider Department 02/05/25 [...] hours please call or and ask the extrusion line operator to page the interventional resident in diagnostic radiology emissions testing and repair technician. 5) To change or schedule an appointment [...] for nephrostomy tube care instructions and demonstrations. [email or web address] Activity and Exercise: (When I can [...] please call Interventional Radiology nurse triage line [phone], Saturday - Saturday 9 a.m. - 4 p.m. After hours please call and ask for Interventional Radiology Fellow emissions testing and repair technician, pager [phone]. In the event of acute symptoms report [...] 1 mg (more content not included)... Normal [facility] 02-04-2025 CNPN Telephone (PODCCP) ITALO BURGOS ([id number]) 1970 M Date Time Provider Department 02/04/25 ZAIDA GASTON PODCCP During your visit today, we recorded [...] 3 mg/actuation nasal spray (BAQSIMI) Use 1 [place] in the nose as needed for low [...] Encounter Status:Closed by AZRA HOGAN on 02/04/25 Normal [facility] [place] 02-03-2025 [facility] Telephone (TXCTGL) ITALO BURGOS ([id number]) 1970 M Date Time Provider Department 02/03/25 AMANDA HAYES TXCTGL During your visit today, we recorded the following information about you: Amanda Hayes LISW 02/03/2025 2:14 PM Signed ADDY made another attempt to contact ([phone]) pt regarding the pt possibility of him being homeless. ADDY left a voicemail and will await return phone call. SARA Sahu-S Transplant Photocopying Equipment Repairer Allergies As of Date: 02/03/2025 (No Known Allergies) Date Reviewed: 01/29/2025 Reviewed by: Charan Trinidad, RN - Fully Assessed Reason for Visit: [...] 3 mg/actuation nasal spray (BAQSIMI) Use 1 [place] in the nose as needed for low [...] Encounter Status:Closed by AMANDA HAYES on 02/03/25 [facility] Telephone (Angio) ITALO BURGOS ([id number]) 1970 M Date Time Provider Department 02/03/25 DANNI SINGH Angio During your visit today, we recorded the following information about you: Danni Singh, RN 02/03/2025 11:34 AM Signed Interventional Radiology [...] 3 mg/actuation nasal spray (BAQSIMI) Use 1 [place] in the nose as needed for low [...] Encounter Status:Closed by DANNI SINGH on 02/03/25 [facility] CNPKaley 02-02-2025 CNPN Telephone (UROLMN) ITALO BURGOS ([id number]) 1970 Date Time Provider Department 02/02/25 BON CONCEPCION [...] Neli Wesley MD [facility], Jamal; Bon Concepicon RN Wi Delfino. This one we can add on [...] Bon Rivas RN 02/02/2025 12:20 PM Signed [facility], Neli Yee MD; Bon Concepcion RN I also called pt again as well and phone goes to but VM is full. I will sent [...] 3 mg/actuation nasal spray (BAQSIMI) Use 1 [place] in the nose as needed for low [...] 11/23/2022 Keyonna (more content not included)... Normal [facility] CBC panel Auto (Bld)on 01-29 Erythrocyte distribution width (RBC) [Ratio] 11.9 % Normal 11.5-15.0 [facility] Comment on above: Order Comment: Speci mario Type: BLOOD SPECIMEN Ordering Facility: [facility] Address: [address] [place] [address] Performed By: #### 5 8410-2 #### [facility] CLIA [id number] [address] [place] [address] [place] Hematocrit (Bld) [Volume fraction] 38.6 % Low 39.0-51.0 [facility] Comment on above: Order Comment: Gabriel martin Type: BLOOD SPECIMEN Ordering Facility: [facility] Address: [address] [place] [address] Performed By: #### 5 8410-2 #### [facility] CLIA [id number] [address] [place] [address] [place] Hemoglobin (Bld) [Mass/Vol] 13.1 g/dL Normal 13.0-17.0 [facility] Comment on above: Order Comment: Speci men Type: BLOOD SPECIMEN Ordering Facility: [facility] Address: [address] [place] [address] Performed By: #### 5 8410-2 #### [facility] CLIA [id number] [address] [place] [address] [place] MCH (RBC) [Entitic mass] 30.4 pg Normal 26.0-34.0 [facility] Comment on above: Order Comment: Speci men Type: BLOOD SPECIMEN Ordering Facility: [facility] Address: [address] [place] [address] Performed By: #### 5 8410-2 #### [facility] CLIA [id number] [address] [place] [address] [place] MCHC (RBC) [Mass/Vol] 33.9 g/dL Normal 30.5-36.0 [facility] Comment on above: Order Comment: Speci men Type: BLOOD SPECIMEN Ordering Facility: [facility] Address: [address] [place] [address] Performed By: #### 5 8410-2 #### [facility] CLIA [id number] [address] [place] [address] [place] MCV (RBC) [Entitic vol] 89.6 fL Normal 80.0-100.0 [facility] Comment on above: Order Comment: Speci men Type: BLOOD SPECIMEN Ordering Facility: [facility] Address: [address] [place] [address] Performed By: #### 5 8410-2 #### [facility] CLIA [id number] [address] [place] [address] [place] Nucleated RBC (Bld) [#/Vol] 10*3/uL Normal <0.01 [facility] Comment on above: Order Comment: Speci men Type: BLOOD SPECIMEN Ordering Facility: [facility] Address: [address] [place] [address] Performed By: #### 5 8410-2 #### [facility] CLIA [id number] [address] [place] [address] [place] Platelet mean volume (Bld) [Entitic vol] 9.6 fL Normal 9.0-12.7 [facility] Comment on above: Order Comment: Speci men Type: BLOOD SPECIMEN Ordering Facility: [facility] Address: [address] [place] [address] Performed By: #### 5 8410-2 #### [facility] CLIA [id number] [address] [place] [address] [place] Platelets (Bld) [#/Vol] 253 10*3/uL Normal 150-400 [facility] Comment on above: Order Comment: Speci men Type: BLOOD SPECIMEN Ordering Facility: [facility] Address: [address] [place] [address] Performed By: #### 5 8410-2 #### [facility] CLIA [id number] [address] [place] [address] [place] RBC (Bld) [#/Vol] 4.31 10*6/uL Normal 4.20-6.00 [facility] Comment on above: Order Comment: Speci men Type: BLOOD SPECIMEN Ordering Facility: [facility] Address: [address] [place] [address] Performed By: #### 5 8410-2 #### [facility] CLIA [id number] [address] [place] [address] [place] WBC (Bld) [#/Vol] 5.28 10*3/uL Normal 3.70-11.00 [facility] Comment on above: Order Comment: Speci men Type: BLOOD SPECIMEN Ordering Facility: [facility] Address: [address] [place] [address] Performed By: #### 5 8410-2 #### [facility] CLIA [id number] [address] [place] [address] [place] CNDSon 01-29-2025 CNDS HNO ID: [id number] Author: SHANA CANTOR MD Service: General Internal [...] patient counseling. SIGNATURE: Shana Cantor MD, MRCP ([facility]), [facility]: [phone] DATE of SERVICE: January 31, 2025 TIME of SERVICE: 8:58 AM DISCHARGE SUMMARY PATIENT NAME: Italo Burgos ADMISSION DATE: 01/27/2025 DISCHARGE DATE: 01/29/2025 ATTENDING PHYSICIAN: No att. providers found Code Status: Prior PCP: [...] Appointment - Urology; less than 2 weeks; [facility] Provider; NELI WESLEY ONCE Comments: Kidney transplant [...] with associated hydroureteronephrosis. He was transferred to [facility] for higher-level management and underwent successful [...] hydroureteronephrosis on (more content not included)... Normal [facility] CONSULT PROGon 01-29-2025 CONSULT PROG HNO ID: [id number] Author: LASHAE WILLIS APRN.CNP Service: Nephrology Author Type: Nurse Practitioner Type: Consult Progress Note Filed: 01/29/2025 14:04 Note Text: Department of Kidney Medicine Medical Specialties [place] NEPHROLOGY TRANSPLANT CONSULT SERVICE PROGRESS NOTE INTERVAL [...] muscle strength grossly intact Labs: Recent Labs 01/29/25 0532 01/28/25 1737 01/28/25 0527 01/27/25 1626 01/27/25 0549 WBC 5.28 -- 6.53 [...] interval not displayed. Recent Labs 01/29/25 0532 01/28/25 1737 01/28/25 0527 01/27/25 0549 TPROT -- -- -- 5.0* ALB 2.9* 3.0* 2.5* 2.6* ALT -- -- -- 11 AST -- -- -- 13* ALKPHOS -- -- -- 100 TBILI -- -- -- 0.5 ASSESSMENT: 54 year old male with PMHx significant for DM, HTN, LUTS,ESRD S/P Renal transplant 03/2021, CKD 3, retinopathy, blind left eye, RLE weakness, depression, GERD, HLD, UTI, SC, DKA, CAD, renal calculi, hematuria, LUANNE, cholecystectomy, [...] F for further management. Upon arrival to [facility] urology was consulted and now s/p Rt nephrostomy tube placement. Nephrology was consulted for ILDA and history of renal transplant. 1. ESRD S/P Renal transplant 03/09/2021 now with Oliguric ILDA on CKD 3a -Etiology: Likely obstructive -Baseline Cr ap (more content not included)... Normal [facility] Renal function 2000 panelon 01-29-2025 Albumin [Mass/Vol] 2.9 g/dL Low 3.9-4.9 [facility] Comment on above: Order Comment: Speci men Type: SWAB Ordering Facility: [facility] Address: [address] [place] [address] Performed By: #### S APCR #### [facility] CLIA [id number] [address] [place] [address] [place] Anion gap [Moles/Vol] 10 mmol/L Normal 8-15 [facility] Comment on above: Order Comment: Speci men Type: SWAB Ordering Facility: [facility] Address: [address] [place] [address] Performed By: #### S APCR #### [facility] CLIA [id number] [address] [place] [address] [place] Calcium [Mass/Vol] 8.9 mg/dL Normal 8.5-10.2 [facility] Comment on above: Order Comment: Speci men Type: SWAB Ordering Facility: [facility] Address: [address] [place] [address] Performed By: #### S APCR #### [facility] CLIA [id number] [address] [place] [address] [place] Chloride [Moles/Vol] 107 mmol/L Normal 98-107 [facility] Comment on above: Order Comment: Speci men Type: SWAB Ordering Facility: [facility] Address: [address] [place] [address] Performed By: #### S APCR #### [facility] CLIA [id number] [address] [place] [address] [place] CO2 [Moles/Vol] 22 mmol/L Normal 22-30 [facility] Comment on above: Order Comment: Speci men Type: SWAB Ordering Facility: [facility] Address: [address] [place] [address] Performed By: #### S APCR #### [facility] CLIA [id number] [facility] [address] [address] [place] [address] [place] Creatinine [Mass/Vol] 1.98 mg/dL High 0.73-1.22 [facility] Comment on above: Order Comment: Speci men Type: SWAB Ordering Facility: [facility] Address: [address] [place] [address] Performed By: #### S APCR #### [facility] CLIA [id number] [address] [place] [address] [place] Creatinine and Glomerular filtration rate.predicted panel (S/P/Bld) 39 mL/min/1.73m??? Low >=60 [facility] Comment on above: Order Comment: Speci men Type: SWAB Ordering Facility: [facility] Address: [address] [place] [address] Result Comment: Candace mated Glomerular Filtration Rate [...] accurately reflect actual GFR. Performed By: #### S APCR #### [facility] CLIA [id number] [address] [place] [address] [place] Glucose [Mass/Vol] 248 mg/dL High 74-99 [facility] Comment on above: Order Comment: Speci men Type: SWAB Ordering Facility: [facility] Address: [address] [place] [address] Result Comment: The [place] Diabetes Association (ADA) provides guidance for cutoff [...] Standards of Medical Care in Diabetes 2016, [place] [employer]. Diabetes Care. 2016.39(Suppl 1). Performed By: #### S APCR #### [facility] CLIA [id number] [address] [place] [address] [place] Phosphate [Mass/Vol] 2.2 mg/dL Low 2.7-4.8 [facility] Comment on above: Order Comment: Speci men Type: SWAB Ordering Facility: [facility] Address: [address] [place] [address] Performed By: #### S APCR #### [facility] CLIA [id number] [address] [place] [address] [place] Potassium [Moles/Vol] 4.6 mmol/L Normal 3.7-5.1 [facility] Comment on above: Order Comment: Speci men Type: SWAB Ordering Facility: [facility] Address: [address] [place] [address] Performed By: #### S APCR #### [facility] CLIA [id number] [address] [place] [address] [place] Sodium [Moles/Vol] 139 mmol/L Normal 136-144 [facility] Comment on above: Order Comment: Speci men Type: SWAB Ordering Facility: [facility] Address: [address] [place] [address] Performed By: #### S APCR #### [facility] CLIA [id number] [address] [place] [address] [place] Urea nitrogen [Mass/Vol] 38 mg/dL High 9-24 [facility] Comment on above: Order Comment: Speci men Type: SWAB Ordering Facility: [facility] Address: [address] [place], [place] [id number] Performed By: #### S APCR #### [facility] CLIA [id number] [address] [facility] [place] [address] [place] THERAPY NTon 01-29-2025 THERAPY NT HNO ID: [id number] Author: LASHAE VALLE, OT/L Service: Occupational Therapy Author Type: Occupational Therapist Type: Therapy (PT/OT/Speech/Resp) Filed: 01/29/2025 11:47 Note Text: Occupational Therapy Evaluation Summary SERVICE DATE: 01/29/2025 SERVICE TIME: 1049 to 1127 ROOM: [place] [address] OT 6 Clicks Score: 22 DISCHARGE RECOMMENDATIONS Home Recommended Discharge Disposition Comments: Safe for d/c back to alf from OT persepctive. May benefit from SNF [...] and mobility, able to complete transfer to [facility] with SBA-CGA. Primarily limited by baseline visual deficits impacting ability to manage nephrostomy tube. Adapted neph tube bag for low vision with increased size and contrast of text/numbers. Pt reporting improvement with adjustment. Provided pt with information on [facility] for assistance with low vision resources. Pt is currently homeless with no family support available. From a therapy perspective, pt safe to d/c back to homeless alf as pt is functioning at recent baseline. [...] Patient Lives With: Other: See Comment (Homeless alf) Assistance Available: None Entry To Home: No Stairs Equipment Owned: Rollator, Cane PRIOR FUNCTIONAL LEVEL Within Functional Limits Pt reports overall IND with ADLs. Ambulates using rollator, denies falls. Has been staying at homeless alf, reports no family support Baseline Cognition: Oriented [...] No Skilled Need TREATMENT INTERVENTIONS Evaluation, Self Group Home Management ([id number]) Timed Code Treatment (minutes): 23 Skilled Treatment Time (minutes): 38 TRAINING AND EDUCATION PROVIDED Activity Adaptation/Compensatory Strategies, Bed Mobility, Benefits of In-Hospital Mobility, Discharge Planning, Functional Mobility Involving ADLs, Low Vision Strategies, Home Set-up/Modifications, IADLs/Home Management, Identification of Systems of Support, Insight into Deficits, Life Roles/Routines/Habits, Role of Occupational Therapy, Standing Balance to Improve [place] with ADLs/Self-Care, Transfer - Sit to Stand, Transfer - Toilet/Commode, Sitting Balance to Improve [place] with ADLs/Self-Care THERAPEUTIC SKILLS USED Activity Dosing, [...] health stat (more content not included)... Normal [facility] Tacrolimus Bld-mCncon 2024 Tacrolimus (Bld) [Mass/Vol] 10.7 ng/mL Normal 5.0-20.0 [facility] Comment on above: Order Comment: Gabriel martin Type: BLOOD SPECIMENOrdering Facility: [facility] Address: [address] [place] [address] Result Comment: Eileen vidualized target levels for [...] situation. Test performed by chemiluminescent immunoassay using [employer] Al[employer] i. Performed By: #### 1 1253-2 ####[facility] [id number] [place] [address] [place] CBC panel Auto (Bld)on 01-28 Erythrocyte distribution width (RBC) [Ratio] 11.9 % Normal 11.5-15.0 [facility] Comment on above: Order Comment: Gabriel martin Type: SWAB [facility] Facility: [facility] Address: [address] [place] [address] Performed By: #### S APCR #### [facility] CLIA [id number] [address] [place] [address] [place] Hematocrit (Bld) [Volume fraction] 37.8 % Low 39.0-51.0 [facility] Comment on above: Order Comment: Gabriel martin Type: SWAB [facility] Facility: [facility] Address: [address] [place] [address] Performed By: #### S APCR #### [facility] CLIA [id number] [address] [place] [address] [place] Hemoglobin (Bld) [Mass/Vol] 13.2 g/dL Normal 13.0-17.0 [facility] Comment on above: Order Comment: Speci men Type: SWAB [facility] Facility: [facility] Address: [address] [place] [address] Performed By: #### S APCR #### [facility] CLIA [id number] [address] [place] [address] [place] MCH (RBC) [Entitic mass] 30.9 pg Normal 26.0-34.0 [facility] Comment on above: Order Comment: Speci men Type: SWAB Ordering Facility: [facility] Address: [address] [place] [address] Performed By: #### S APCR #### [facility] CLIA [id number] [address] [place] [address] [place] MCHC (RBC) [Mass/Vol] 34.9 g/dL Normal 30.5-36.0 [facility] Comment on above: Order Comment: Speci men Type: SWAB Ordering Facility: [facility] Address: [address] [place] [address] Performed By: #### S APCR #### [facility] CLIA [id number] [address] [place] [address] [place] MCV (RBC) [Entitic vol] 88.5 fL Normal 80.0-100.0 [facility] Comment on above: Order Comment: Speci men Type: SWAB Ordering Facility: [facility] Address: [address] [place] [address] Performed By: #### S APCR #### [facility] CLIA [id number] [address] [place] [address] [place] Nucleated RBC (Bld) [#/Vol] 10*3/uL Normal <0.01 [facility] Comment on above: Order Comment: Speci men Type: SWAB Ordering Facility: [facility] Address: [address] [place] [address] Performed By: #### S APCR #### [facility] CLIA [id number] [address] [place] [address] [place] Platelet mean volume (Bld) [Entitic vol] 9.7 fL Normal 9.0-12.7 [facility] Comment on above: Order Comment: Speci men Type: SWAB Ordering Facility: [facility] Address: [address] [place] [address] Performed By: #### S APCR #### [facility] CLIA [id number] [address] [place] [address] [place] Platelets (Bld) [#/Vol] 206 10*3/uL Normal 150-400 [facility] Comment on above: Order Comment: Speci men Type: SWAB Ordering Facility: [facility] Address: [address] [place] [address] Performed By: #### S APCR #### [facility] CLIA [id number] [address] [place] [address] [place] RBC (Bld) [#/Vol] 4.27 10*6/uL Normal 4.20-6.00 [facility] Comment on above: Order Comment: Speci men Type: SWAB Ordering Facility: [facility] Address: [address] [place] [address] Performed By: #### S APCR #### [facility] CLIA [id number] [address] [place] [place] [address] [place] WBC (Bld) [#/Vol] 6.53 10*3/uL Normal 3.70-11.00 [facility] Comment on above: Order Comment: Speci men Type: SWAB Ordering Facility: [facility] Address: [address] [place] [address] Performed By: #### S APCR #### [facility] CLIA [id number] [address] [place] [address] [facility] CONSULT PROGon 01-28-2025 CONSULT PROG HNO ID: [id number] Author: LASHAE WILLIS APRN.CNP Service: Nephrology Author Type: Nurse Practitioner Type: Consult Progress Note Filed: 01/28/2025 13:26 Note Text: [facility] [place] NEPHROLOGY TRANSPLANT CONSULT SERVICE PROGRESS NOTE INTERVAL [...] strength grossly intact Labs: Recent Labs 01/28/25 0501/27/25 1626 01/27/25 0549 WBC 6.53 -- 9.72 [...] P 3.9 -- 5.5* Recent Labs 01/28/25 0501/27/25 0549 TPROT -- 5.0* ALB 2.5* 2.6* ALT -- 11 AST -- 13* ALKPHOS -- 100 TBILI -- 0.5 ASSESSMENT: 54 year old male with PMHx significant for DM, HTN, LUTS,ESRD S/P Renal transplant 03/2021, CKD 3, retinopathy, blind left eye, RLE weakness, depression, GERD, HLD, UTI, SC, DKA, CAD, renal calculi, hematuria, LUANNE, cholecystectomy, [...] F for further management. Upon arrival to [place] urology was consulted and now s/p Rt [...] -Renal imaging CT AP 01/26/25: Severely atrophic [place]western [place] kidneys. Right pelvic transplanted kidney transplanted right kidney ureter 10 mm calculus with severe upstream hydroureteronephrosis. Transplant kidney perinephric stranding which may represent back pressure. Bladder: Markedly concentrically thi (more content not included)... Normal [facility] CONSULT PROG HNO ID: [id number] Author: JORDYN ROBB MD Service: Urology Author [...] sign off Jordyn Cates MD Urology PGY3 [facility] [place] After 5pm or weekends: [id number] Will discuss plan with staff OBJECTIVE Vital [...] draining CYU Labs: Reviewed Imaging Reviewed Normal [facility] NURSING PROGon 01-28-2025 NURSING PROG HNO ID: [id number] Author: CHARAN TRINIDAD, RN Service: Nursing Author [...] it should be 1000 plus 500. Normal [facility] Renal function 2000 panelon 01-28-2025 Albumin [Mass/Vol] 3.0 g/dL Low 3.9-4.9 [facility] Comment on above: Order Comment: Speci men Type: BLOOD SPECIMEN [facility]ing Facility: [facility] Address: [address] [place] [address] Performed By: #### 1 1253-2 #### [facility] CLIA [id number] [address] [place] [address] [place] Anion gap [Moles/Vol] 11 mmol/L Normal 8-15 [facility] Comment on above: Order Comment: Speci men Type: BLOOD SPECIMEN Ordering Facility: [facility] Address: [address] [place] [address] Performed By: #### 1 1253-2 #### [facility] CLIA [id number] [address] [place] [address] [place] Calcium [Mass/Vol] 8.8 mg/dL Normal 8.5-10.2 [facility] Comment on above: Order Comment: Speci men Type: BLOOD SPECIMEN Ordering Facility: [facility] Address: [address] [place] [address] Performed By: #### 1 1253-2 #### [facility] CLIA [id number] [address] [place] [address] [place] Chloride [Moles/Vol] 103 mmol/L Normal 98-107 [facility] Comment on above: Order Comment: Speci men Type: BLOOD SPECIMEN Ordering Facility: [facility] Address: [address] [place] [address] Performed By: #### 1 1253-2 #### [facility] CLIA [id number] [address] [place] [address] [place] CO2 [Moles/Vol] 18 mmol/L Low 22-30 [facility] Comment on above: Order Comment: Speci men Type: BLOOD SPECIMEN Ordering Facility: [facility] Address: [address] [place] [address] Performed By: #### 1 1253-2 #### [facility] CLIA [id number] [address] [place] [address] [place] Creatinine [Mass/Vol] 3.04 mg/dL High 0.73-1.22 [facility] Comment on above: Order Comment: Mii men Type: BLOOD SPECIMEN Ordering Facility: [facility] Address: [address] [place] [address] Performed By: #### 1 1253-2 #### [facility] CLIA [id number] [address] [place] [address] [place] Creatinine and Glomerular filtration rate.predicted panel (S/P/Bld) 23 mL/min/1.73m??? Low >=60 [facility] Comment on above: Order Comment: Gabriel men Type: BLOOD SPECIMEN Ordering Facility: [facility] Address: [address] [place] [address] Result Comment: Candace mated Glomerular Filtration Rate [...] GFR. Performed By: #### 1 1253-2 #### [facility] CLIA [id number] [address] [place] [address] [place] Glucose [Mass/Vol] 362 mg/dL High 74-99 [facility] Comment on above: Order Comment: Gabriel men Type: BLOOD SPECIMEN Ordering Facility: [facility] Address: [address] [place] [address] Result Comment: The [place] Diabetes Association (ADA) provides guidance for cutoff [...] Standards of Medical Care in Diabetes 2016, [place] [employer]. Diabetes Care. 2016.39(Suppl 1). Performed By: #### 1 1253-2 #### [facility] CLIA [id number] [address] [place] [address] [place] Phosphate [Mass/Vol] 2.6 mg/dL Low 2.7-4.8 [facility] Comment on above: Order Comment: Gabriel martin Type: BLOOD SPECIMEN Ordering Facility: [facility] Address: [address] [place] [address] Performed By: #### 1 1253-2 #### [facility] CLIA [id number] [address] [place] [address] [place] Potassium [Moles/Vol] 4.8 mmol/L Normal 3.7-5.1 [facility] Comment on above: Order Comment: Gabriel martin Type: BLOOD SPECIMEN Ordering Facility: [facility] Address: [address] [place] [address] Performed By: #### 1 1253-2 #### [facility] CLIA [id number] [address] [place], [place] [address] [place] Sodium [Moles/Vol] 132 mmol/L Low 136-144 [facility] Comment on above: Order Comment: Mii men Type: BLOOD SPECIMEN Ordering Facility: [facility] Address: [address] [place] [address] Performed By: #### 1 1253-2 #### [facility] CLIA [id number] [address] [place], [place] [address] [place] Urea nitrogen [Mass/Vol] 51 mg/dL High 9-24 [facility] Comment on above: Order Comment: Speci men Type: BLOOD SPECIMEN Ordering Facility: [facility] Address: [address] [place] [address] Performed By: #### 1 1253-2 #### [facility] CLIA [id number] [address] [place] [address] [place] Albumin [Mass/Vol] 2.5 g/dL Low 3.9-4.9 [facility] Comment on above: Order Comment: Speci men Type: BLOOD SPECIMEN Ordering Facility: [facility] Address: [address] [place] [address] Performed By: #### 1 1253-2 #### [facility] CLIA [id number] [address] [place] [address] [place] Anion gap [Moles/Vol] 14 mmol/L Normal 8-15 [facility] Comment on above: Order Comment: Speci men Type: BLOOD SPECIMEN Ordering Facility: [facility] Address: [address] [place], [place] [id number] Performed By: #### 1 1253-2 #### [facility] CLIA [id number] [address] [place] [address] [place] Calcium [Mass/Vol] 8.7 mg/dL Normal 8.5-10.2 [facility] Comment on above: Order Comment: Speci men Type: BLOOD SPECIMEN Ordering Facility: [facility] Address: [address] [place] [address] Performed By: #### 1 1253-2 #### [facility] CLIA [id number] [address] [place] [address] [place] Chloride [Moles/Vol] 104 mmol/L Normal 98-107 [facility] Comment on above: Order Comment: Speci men Type: BLOOD SPECIMEN Ordering Facility: [facility] Address: [address] [place] [address] Performed By: #### 1 1253-2 #### [facility] CLIA [id number] [address] [place] [address] [place] CO2 [Moles/Vol] 16 mmol/L Low 22-30 [facility] Comment on above: Order Comment: Speci men Type: BLOOD SPECIMEN Ordering Facility: [facility] Address: [address] [place] [address] Performed By: #### 1 1253-2 #### [facility] CLIA [id number] [address] [place] [address] [place] Creatinine [Mass/Vol] 4.96 mg/dL High 0.73-1.22 [facility] Comment on above: Order Comment: Speci men Type: BLOOD SPECIMEN Ordering Facility: [facility] Address: [address] [place] [address] Performed By: #### 1 1253-2 #### [facility] CLIA [id number] [address] [place] [address] [place] Creatinine and Glomerular filtration rate.predicted panel (S/P/Bld) 13 mL/min/1.73m??? Low >=60 [facility] Comment on above: Order Comment: Speci men Type: BLOOD SPECIMEN Ordering Facility: [facility] Address: [address] [place] [address] Result Comment: Candace mated Glomerular Filtration Rate [...] GFR. Performed By: #### 1 1253-2 #### [facility] CLIA [id number] [address] [place], [place] [address] [place] Glucose [Mass/Vol] 230 mg/dL High 74-99 [facility] Comment on above: Order Comment: Speci men Type: BLOOD SPECIMEN Ordering Facility: [facility] Address: [address] [place] [address] Result Comment: The [place] Diabetes Association (ADA) provides guidance for cutoff [...] Standards of Medical Care in Diabetes 2016, [place] [employer]. Diabetes Care. 2016.39(Suppl 1). Performed By: #### 1 1253-2 #### [facility] CLIA [id number] [address] [place] [address] [place] Phosphate [Mass/Vol] 3.9 mg/dL Normal 2.7-4.8 [facility] Comment on above: Order Comment: Speci men Type: BLOOD SPECIMEN Ordering Facility: [facility] Address: [address] [place] [address] Performed By: #### 1 1253-2 #### [facility] CLIA [id number] [address] [place] [address] [place] Potassium [Moles/Vol] 4.6 mmol/L Normal 3.7-5.1 [facility] Comment on above: Order Comment: Speci men Type: BLOOD SPECIMEN Ordering Facility: [facility] Address: [address] [place] [address] Performed By: #### 1 1253-2 #### [facility] CLIA [id number] [address] [place] [address] [place] Sodium [Moles/Vol] 134 mmol/L Low 136-144 [facility] Comment on above: Order Comment: Speci men Type: BLOOD SPECIMEN Ordering Facility: [facility] Address: [address] [place] [address] Performed By: #### 1 1253-2 #### [facility] CLIA [id number] [address] [place] [address] Urea nitrogen [Mass/Vol] 65 mg/dL High 9-24 [facility] Comment on above: Order Comment: Gabriel martin Type: BLOOD SPECIMEN Ordering Facility: [facility] Address: [address] [place] [address] Performed By: #### 1 1253-2 #### [facility] CLIA [id number] [address] [place] [address] THERAPY NTon 01-28-2025 THERAPY NT HNO ID: [id number] Author: RICK JACOBS OT/Jose Luis Service: Occupational Therapy Author Type: Occupational Therapist Type: Therapy (PT/OT/Speech/Resp) Filed: 01/28/2025 13:22 Note Text: OCCUPATIONAL THERAPY MISSED VISIT SERVICE DATE: 01/28/2025 SERVICE TIME: 1310 ROOM: [place] [address] Patient not seen due to (Pt with actice d/c summary in chart). SIGNATURE: DINAH Waldron PATIENT NAME: Italo Burgos DATE: January 28, 2025 TIME: 1:22 PM Normal [facility] Tacrolimus Bld-mCncon 2024 Tacrolimus (Bld) [Mass/Vol] 17.3 ng/mL Normal 5.0-20.0 [facility] Comment on above: Order Comment: Gabriel martin Type: BLOOD SPECIMEN [facility] Facility: [facility] Address: [address] [place] [address] Result Comment: Eileen vidualized target levels for [...] situation. Test performed by chemiluminescent immunoassay using [employer] i. Performed By: #### 1 1253-2 #### [facility] CLIA [id number] [address] [place] [address] [place] Anion gap in Serum or Plasma Ordered By: Yony Solis on 01-27-2025 Anion gap [Moles/Vol] 16 mmol/L High 5-15 [facility] BRIEF OP NOTon 01-27-2025 BRIEF OP NOT HNO ID: [id number] Author: ALTAF DE JESUS MD Service: Interventional Radiology Author Type: Resident Type: Brief Op Note Filed: 01/27/2025 08:56 Note Text: BRIEF OPERATIVE / PROCEDURE NOTE LOG ID: [id number] SURGERY/PROCEDURE DATE: 01/27/2025 INCISION/PROCEDURE START TIME: 8:35 AM INCISION CLOSE/PROCEDURE END TIME: SURGEON(S)/PROCEDURALIS T(S) AND BALANCING MACHINE SET UP WORKER(S): Surgeons and Role: * Tenzin Dnaiel MD - Primary * Altaf De Jesus MD - Fellow No Additional [...] January 27, 2025 TIME: 8:55 AM Normal [facility] BUN/creatinine ratioOrdered By: Yony Solis on 01-27-2025 Urea nitrogen/Creatinine [Mass ratio] 8.5 mg/mg Low 10-20 [facility] Bacteria Ur Culton 5 Bacteria identified Cx Nom (U) CULTURE, URINE: No growth (<100 CFU/ml) Normal [facility] Comment on above: Performed By: #### 6 30-4 ####[facility] [id number] [place] [address] [place] Basic Metabolic Profile (BMP )on 01-27-2025 BUN/CRE 8.5 RATIO Low 10-20 [facility] Comment on above: Performed By: #### L 500.2500, L100.0100 #### [facility] [address] [place], [address] Calcium [Mass/Vol] 8.2 mg/dL Normal 7.6-11.0 [facility] Comment on above: Performed By: #### L 500.2500, L100.0100 #### [facility] [address] [place], [address] Chloride [Moles/Vol] 94 mmol/L Low 98-108 [facility] Comment on above: Performed By: #### L 500.2500, L100.0100 #### [facility] [address] [place], [address] CO2 [Moles/Vol] 16.7 mmol/L Low 21.0-32.0 [facility] Comment on above: Performed By: #### L 500.2500, L100.0100 #### [facility] [address] [place], [address] Creatinine [Mass/Vol] 10.50 mg/dL Invalid Interpretation Code 0.70-1.20 [facility] Comment on above: Result Comment: Crit ical Result(s) Called at: 0222 by:??RUDY HAVEN TO NATE ALFRED Results read back by same. Performed By: #### L 500.2500, L100.0100 #### [facility] [address] [place], [address] ECRCL 8.41 ml/min Invalid Interpretation Code 50-250 [facility] Comment on above: Performed By: #### L 500.2500, L100.0100 #### [facility] [address] [place], [address] GAP 16 High 5-15 [facility] Comment on above: Performed By: #### L 500.2500, L100.0100 #### [facility] [address] [place], [address] GFR/1.73 sq M.predicted among non-blacks MDRD (S/P/Bld) [Vol rate/Area] 5 mL/min/{1.73_m2} Low >60 [facility] Comment on above: Result Comment: mL/m in/1.73m2 CKD-EPI Creatinine Equation (2020) Performed By: #### L 500.2500, L100.0100 #### [facility] [address] [place], [address] Glucose [Mass/Vol] 116 mg/dL High 70-99 [facility] Comment on above: Performed By: #### L 500.2500, L100.0100 #### [facility] [address] [place], [address] Potassium [Moles/Vol] 4.6 mmol/L Normal 3.3-5.1 [facility] Comment on above: Performed By: #### L 500.2500, L100.0100 #### [facility] [address] [place], [address] Sodium [Moles/Vol] 126 mmol/L Low 133-145 [facility] Comment on above: Performed By: #### L 500.2500, L100.0100 #### [facility] [address] [place], [address] Urea nitrogen [Mass/Vol] 90 mg/dL High 4-19 [facility] Comment on above: Performed By: #### L 500.2500, L100.0100 #### [facility] [address] [place], [address] BUN Normal 4-19 [facility] Comment on above: Result Comment: QUES TIONABLE RESULTS. REORDERED Performed By: #### L 500.2500 #### [facility] [address] [place], [address] BUN/CRE Normal 10-20 [facility] Comment on above: Result Comment: QUES TIONABLE RESULTS. REORDERED Performed By: #### L 500.2500 #### [facility] [address] [place], [address] Calcium Normal 7.6-11.0 [facility] Comment on above: Result Comment: QUES TIONABLE RESULTS. REORDERED Performed By: #### L 500.2500 #### [facility] [address] [place], [address] CL Normal 98-108 [facility] Comment on above: Result Comment: QUES TIONABLE RESULTS. REORDERED Performed By: #### L 500.2500 #### [facility] [address] [place], [address] CO2 Normal 21.0-32.0 [facility] Comment on above: Result Comment: QUES TIONABLE RESULTS. REORDERED Performed By: #### L 500.2500 #### [facility] [address] [place], [address] CREAT,SERUM Normal 0.70-1.20 [facility] Comment on above: Result Comment: QUES TIONABLE RESULTS. REORDERED Performed By: #### L 500.2500 #### [facility] [address] [place], [address] eGFR Normal >60 [facility] Comment on above: Result Comment: QUES TIONABLE RESULTS. REORDERED Performed By: #### L 500.2500 #### [facility] [address] [place], [address] GAP Normal 5-15 [facility] Comment on above: Result Comment: QUES TIONABLE RESULTS. REORDERED Performed By: #### L 500.2500 #### [facility] [address] [place], [address] GLU Normal 70-99 [facility] Comment on above: Result Comment: QUES TIONABLE RESULTS. REORDERED Performed By: #### L 500.2500 #### [facility] [address] [place], [address] Potassium Normal 3.3-5.1 [facility] Comment on above: Result Comment: QUES TIONABLE RESULTS. REORDERED Performed By: #### L 500.2500 #### [facility] [address] [place], [address] Basic Metabolic Profile (BMP) Normal 133-145 [facility] Comment on above: Result Comment: QUES TIONABLE RESULTS. REORDERED Performed By: #### L 500.2500 #### [facility] [address] [place], [address] Basic metabolic 2000 panelon 01-27-2025 Anion gap [Moles/Vol] 14 mmol/L Normal 8-15 [facility] Comment on above: Order Comment: Speci men Type: BLOOD SPECIMEN [facility] Address: [address] [place] [address] Performed By: #### 2 4321-2 #### [facility] CLIA [id number] [address] [place] [address] [place] Calcium [Mass/Vol] 8.4 mg/dL Low 8.5-10.2 [facility] Comment on above: Order Comment: Speci men Type: BLOOD SPECIMEN Ordering Facility: [facility] Address: [facility] [address] [place] [address] Performed By: #### 2 4321-2 #### [facility] CLIA [id number] [address] [place], [place] [address] [place] Chloride [Moles/Vol] 99 mmol/L Normal 98-107 [facility] Comment on above: Order Comment: Speci men Type: BLOOD SPECIMEN Ordering Facility: [facility] Address: [address] [place] [address] Performed By: #### 2 4321-2 #### [facility] CLIA [id number] [address] [place] [address] [place] CO2 [Moles/Vol] 16 mmol/L Low 22-30 [facility] Comment on above: Order Comment: Speci men Type: BLOOD SPECIMEN Ordering Facility: [facility] Address: [address] [place] [address] Performed By: #### 2 4321-2 #### [facility] CLIA [id number] [address] [place] [address] [place] Creatinine [Mass/Vol] 7.42 mg/dL High 0.73-1.22 [facility] Comment on above: Order Comment: Speci men Type: BLOOD SPECIMEN Ordering Facility: [facility] Address: [address] [place] [address] Performed By: #### 2 4321-2 #### [facility] CLIA [id number] [address] [place] [address] [place] Creatinine and Glomerular filtration rate.predicted panel (S/P/Bld) 8 mL/min/1.73m??? Low >=60 [facility] Comment on above: Order Comment: Speci men Type: BLOOD SPECIMEN Ordering Facility: [facility] Address: [address] [place] [address] Result Comment: Candace mated Glomerular Filtration Rate [...] GFR. Performed By: #### 2 4321-2 #### [facility] CLIA [id number] [address] [place] [address] [place] Glucose [Mass/Vol] 191 mg/dL High 74-99 [facility] Comment on above: Order Comment: Speci men Type: BLOOD SPECIMEN Ordering Facility: [facility] Address: [address] [place] [address] Result Comment: The [place] Diabetes [employer] (ADA) provides guidance for cutoff [...] Standards of Medical Care in Diabetes 2016, [place] [employer]. Diabetes Care. 2016.39(Suppl 1). Performed By: #### 2 4321-2 #### [facility] CLIA [id number] [address] [place] [address] [place] Potassium [Moles/Vol] 4.7 mmol/L Normal 3.7-5.1 [facility] Comment on above: Order Comment: Gabriel martin Type: BLOOD SPECIMEN Ordering Facility: [facility] Address: [address] [place] [address] Performed By: #### 2 4321-2 #### [facility] CLIA [id number] [address] [place] [address] [place] Sodium [Moles/Vol] 129 mmol/L Low 136-144 [facility] Comment on above: Order Comment: Gabriel men Type: BLOOD SPECIMEN [facility]ing Facility: [facility] Address: [address] [place] [address] Performed By: #### 2 4321-2 #### [facility] CLIA [id number] [address] [place] [address] [place] Urea nitrogen [Mass/Vol] 82 mg/dL High 9-24 [facility] Comment on above: Order Comment: Speci men Type: BLOOD SPECIMEN [facility]ing Facility: [facility] Address: [address] [place] [address] Performed By: #### 2 4321-2 #### [facility] CLIA [id number] [address] [place] [address] [place] Bedside Glucoseon 01-27-2025 [place] GLU 127 mg/dL High 74-106 [facility] Comment on above: Result Comment: RACHEL GEMENT OF PATIENT CARE PER NURSING PROTOCOL Performed By: #### L 501.080 #### [facility] [address] [place], [address] FINGERSTICK GLU 128 mg/dL High 74-106 [facility] Comment on above: Result Comment: RACHEL GEMENT OF PATIENT CARE PER NURSING PROTOCOL Performed By: #### L 501.080 #### [facility] [address] [place], [address] FINGERSTICK GLU 168 mg/dL High 74-106 [facility] Comment on above: Result Comment: RACHEL GEMENT OF PATIENT CARE PER NURSING PROTOCOL Performed By: #### L 500.2500 #### [facility] [address] [place], [address] FINGERSTICK GLU 145 mg/dL High 74-106 [facility] Comment on above: Result Comment: RACHEL GEMENT OF PATIENT CARE PER NURSING PROTOCOL Performed By: #### L 501.080 #### [facility] [address] [place], [address] FINGERSTICK GLU 200 mg/dL High 74-106 [facility] Comment on above: Result Comment: RACHEL GEMENT OF PATIENT CARE PER NURSING PROTOCOL Performed By: #### L 501.080 #### [facility] [address] [place], [address] Beta-Hydroxbytyrateon 2024 BETA-HYDROXYBUT 0.0 mmol/L Normal 0.0-0.3 [facility] Comment on above: Performed By: #### L 500.2500, L100.0100 #### [facility] [address] [place], [address] Beta-hydroxybutyrateOrdered By: Yony Solis on 01-27-2025 Beta hydroxybutyrate [Mass/Vol] 0.0 mmol/L 0.0-0.3 [facility] CBC panel Auto (Bld)on 01-27 Erythrocyte distribution width (RBC) [Ratio] 11.6 % Normal 11.5-15.0 [facility] Comment on above: Order Comment: Speci men Type: SWAB [facility]ing Facility: [facility] Address: [address] [place] [address] Performed By: #### S APCR #### [facility] CLIA [id number] [address] [place] [address] [place] Hematocrit (Bld) [Volume fraction] 33.5 % Low 39.0-51.0 [facility] Comment on above: Order Comment: Speci men Type: SWAB Ordering Facility: [facility] Address: [address] [place] [address] Performed By: #### S APCR #### [facility] CLIA [id number] [address] [place] [address] [place] Hemoglobin (Bld) [Mass/Vol] 11.9 g/dL Low 13.0-17.0 [facility] Comment on above: Order Comment: Speci men Type: SWAB Ordering Facility: [facility] Address: [address] [place] [address] Performed By: #### S APCR #### [facility] CLIA [id number] [address] [place] [address] [place] MCH (RBC) [Entitic mass] 30.8 pg Normal 26.0-34.0 [facility] Comment on above: Order Comment: Speci men Type: SWAB Ordering Facility: [facility] Address: [address] [place] [address] Performed By: #### S APCR #### [facility] CLIA [id number] [address] [place] [address] [place] MCHC (RBC) [Mass/Vol] 35.5 g/dL Normal 30.5-36.0 [facility] Comment on above: Order Comment: Speci men Type: SWAB Ordering Facility: [facility] Address: [address] [place] [address] Performed By: #### S APCR #### [facility] CLIA [id number] [address] [place] [address] [place] MCV (RBC) [Entitic vol] 86.8 fL Normal 80.0-100.0 [facility] Comment on above: Order Comment: Speci men Type: SWAB Ordering Facility: [facility] Address: [address] [place] [address] Performed By: #### S APCR #### [facility] CLIA [id number] [address] [place] [address] [place] Nucleated RBC (Bld) [#/Vol] 10*3/uL Normal <0.01 [facility] Comment on above: Order Comment: Speci men Type: SWAB Ordering Facility: [facility] Address: [address] [place] [address] Performed By: #### S APCR #### [facility] CLIA [id number] [address] [place] [address] [place] Platelet mean volume (Bld) [Entitic vol] 9.7 fL Normal 9.0-12.7 [facility] Comment on above: Order Comment: Speci men Type: SWAB Ordering Facility: [facility] Address: [address] [place] [address] Performed By: #### S APCR #### [facility] CLIA [id number] [address] [place] [address] [place] Platelets (Bld) [#/Vol] 167 10*3/uL Normal 150-400 [facility] Comment on above: Order Comment: Speci men Type: SWAB Ordering Facility: [facility] Address: [address] [place] [address] Performed By: #### S APCR #### [facility] CLIA [id number] [address] [place] [address] [place] RBC (Bld) [#/Vol] 3.86 10*6/uL Low 4.20-6.00 [facility] Comment on above: Order Comment: Speci men Type: SWAB Ordering Facility: [facility] Address: [address] [place] [address] Performed By: #### S APCR #### [facility] CLIA [id number] [address] [place] [address] [place] WBC (Bld) [#/Vol] 9.72 10*3/uL Normal 3.70-11.00 [facility] Comment on above: Order Comment: Speci men Type: SWAB Ordering Facility: [facility] Address: [address] [place] [address] Performed By: #### S APCR #### [facility] CLIA [id number] [address] [place] [address] [place] CNPKaley 01-27-2025 CNPN Telephone (Angio) ITALO BURGOS ([id number]) 1970 M Date Time Provider Department 01/27/25 [...] for Visit: IR Inpatient Tube Appointment Request [[id number]] Prescriptions as of 01/28/2025 - carvedilol (COREG) [...] 3 mg/actuation nasal spray (BAQSIMI) Use 1 [place] in the nose as needed for low [...] - tacrolimus IR 2 mg cap(s) (PROGRAF) (Nov Hold) - buPROPion XL 300 mg tab(s) (WELLBUTRIN XL) - buPROPion 75 mg tab(s) (WELLBUTRIN) - FLUoxetine 10 mg cap(s) (PROzac) - predniSONE 5 mg tab(s) (DELTASONE) - sulfamethoxazole-trimet hoprim 400-80 mg 1 tablet (BACTRIM) - pantoprazole DR 20 mg tab(s) (PROTONIX) - tacrolimus IR 1 mg cap(s) (PROGRAF) (Nov Hold) - cefTRIAXone iv piggyback 1 g [...] (HC*03/23/2021 Immunodeficienc (more content not included)... [facility] IT[facility]O [facility]UR[facility] ([id number]) 1970 M Date Time Provider Department 01/27/25 AMANDA HAYES TXCTGL During your visit today, we recorded the following information about you: Amanda Hayes, PLANT ATTENDANT OR ASSISTANT OPERATOR 01/27/2025 1:58 PM Signed ADDY attempted to call pt regarding the possibility of being him homeless. ADDY was unable to leave a message. SW will attempt to contact pt at a later time. SARA Sahu-S Transplant Photocopying Equipment Repairer Allergies As of Date: 01/27/2025 (No Known Allergies) Date Reviewed: 01/27/2025 Reviewed by: Neli Gutierrez, RN - Fully Assessed Reason for Visit: [...] in pm - Blood-Glucose Meter,Continuous (DEXCOM G6 HEAVY MACHINERY OPERATOR) misc 1 Each continuous. - Blood-Glucose Sensor [...] Units subcutaneously daily at bedtime. - Insulin Lula, Disposable, (BD ULTRA-FINE SANDRA PEN NEEDLE) 32 gauge x Use as directed four times daily - [...] 3 mg/actuation nasal spray (BAQSIMI) Use 1 [place] in the nose as needed for low [...] Noted Resol (more content not included)... Normal [facility] CONSULTon 01-27-2025 CONSULT HNO ID: [id number] Author: CHELSEA RYAN MD Service: Nephrology Author [...] than fatigue Noted plans for transfer to [facility] Suspect that he will have a post-obstructive diuresis, so will need to monitor UOP and lytes closely- check renal function this PM Will need definitive management of obstructive nephrolithiasis per urology Agree with short term hold of MMF while cultures are resulted Rest of plan and IS recs per SUSAN note Chelsea Ryan MD Department [facility] [place] ICU NEPHROLOGY CONSULT NOTE Patient Name: Italo [...] eye, RLE weakness, depression, GERD, HLD, UTI, SC, DKA, CAD, renal calculi, hematuria, LUANNE, cholecystectomy, [...] with SBP 80s. Patient was transferred to [facility] for further management. Upon arrival to [facility] urology was consulted and now s/p Rt nephrostomy tube placement. Nephrology was consulted for ILDA and history of renal transplant. 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 Normal [facility] CONSULT HNO ID: [id number] Author: DYLAN URIBE MD Service: Urology Author Type: Resident Type: Consults Filed: 01/27/2025 06:42 Note Text: [facility] UROLOGY CONSULT NOTE [...] Dr. Cummings. Dylan Uribe MD Urology Resident [facility] [place] Pager [phone] For weekend or after hours issues please [...] type 2, goal HbA1c < 7% (HCC) Erectile dysfunction, unspecified erectile dysfunction type ESRD [...] SHUNT FOR DIALYSIS Right 08/08/2018 Done at [facility] by Satish Phan MD CHOLECYSTECTOMY 1998 Cholecystectomy [...] 90 capsuleRfl: 11 Blood-Glucose Meter,Continuous (DEXCOM G6 HEAVY MACHINERY OPERATOR) misc1 Each continuous.Disp: 1 EachRfl: 0 Blood-Glucose Sensor (DEXCOM G6 SENSOR) devi1 Each continuous.Disp: 9 EachRfl: 3 Blood-Glucose Transmitter (DEXCOM G6 TRANSMITTER) devi1 Each continuous.Disp: 1 EachRfl: 0 carvedilol (COREG) 25 mg tabletTake 1 tablet by mouth two times a day.Disp: 60 tabletRfl: 11 losartan (COZAAR) 25 mg tabletTake 2 tab (more content not included)... Normal [facility] Carbon dioxide, total [Moles /volume] in Central venous bloodOrdered By: Yony Solis on 01-27-2025 CO2 [Moles/Vol] 16.7 mmol/L Low 21.0-32.0 [facility] Chloride assayOrdered By: Aldair Solis on 01-27-2025 Chloride [Moles/Vol] 94 mmol/L Low 98-108 [facility] Comprehensive metabolic 2000 panelon 01-27-2025 Albumin [Mass/Vol] 2.6 g/dL Low 3.9-4.9 [facility] Comment on above: Order Comment: Speci men Type: SWAB [facility]ing Facility: [facility] Address: [address] [place] [address] Performed By: #### S APCR #### [facility] CLIA [id number] [address] [place] [address] [place] ALP [Catalytic activity/Vol] 100 U/L Normal 38-113 [facility] Comment on above: Order Comment: Speci men Type: SWAB Ordering Facility: [facility] Address: [address] [place] [address] Performed By: #### S APCR #### [facility] CLIA [id number] [address] [place] [address] [place] ALT [Catalytic activity/Vol] 11 U/L Normal 10-54 [facility] Comment on above: Order Comment: Speci men Type: SWAB Ordering Facility: [facility] Address: [address] [place] [address] Performed By: #### S APCR #### [facility] CLIA [id number] [address] [place] [address] [place] Anion gap [Moles/Vol] 16 mmol/L High 8-15 [facility] Comment on above: Order Comment: Speci men Type: SWAB [facility]ing Facility: [facility] Address: [address] [place] [address] Performed By: #### S APCR #### [facility] CLIA [id number] [address] [place] [address] [place] AST [Catalytic activity/Vol] 13 U/L Low 14-40 [facility] Comment on above: Order Comment: Speci men Type: SWAB Ordering Facility: [facility] Address: [address] [place] [address] Result Comment: Resu lts may be falsely increased due to interference from hemolysis. Suggest reorder as clinically indicated. Performed By: #### S APCR #### [facility] CLIA [id number] [address] [place] [address] [place] Bilirubin [Mass/Vol] 0.5 mg/dL Normal 0.2-1.3 [facility] Comment on above: Order Comment: Speci men Type: SWAB Ordering Facility: [facility] Address: [address] [place] [address] Performed By: #### S APCR #### [facility] CLIA [id number] [address] [place] [address] [place] Calcium [Mass/Vol] 8.1 mg/dL Low 8.5-10.2 [facility] Comment on above: Order Comment: Speci men Type: SWAB [facility]ing Facility: [facility] Address: [address] [place] [address] Performed By: #### S APCR #### [facility] CLIA [id number] [address] [place] [address] [place] Chloride [Moles/Vol] 94 mmol/L Low 98-107 [facility] Comment on above: Order Comment: Speci men Type: SWAB [facility] Facility: [facility] Address: [address] [place] [address] Performed By: #### S APCR #### [facility] CLIA [id number] [address] [place] [address] [place] CO2 [Moles/Vol] 16 mmol/L Low 22-30 [facility] Comment on above: Order Comment: Speci men Type: SWAB [facility]ing Facility: [facility] Address: [address] [place] [address] Performed By: #### S APCR #### [facility] CLIA [id number] [address] [place] [address] [place] Creatinine [Mass/Vol] 9.90 mg/dL High 0.73-1.22 [facility] Comment on above: Order Comment: Speci men Type: SWAB [facility]ing Facility: [facility] Address: [address] [place] [address] Performed By: #### S APCR #### [facility] CLIA [id number] [address] [place] [address] [place] Creatinine and Glomerular filtration rate.predicted panel (S/P/Bld) 6 mL/min/1.73m??? Low >=60 [facility] Comment on above: Order Comment: Speci men Type: SWAB Ordering Facility: [facility] Address: [address] [place] [address] Result Comment: Candace mated Glomerular Filtration Rate [...] accurately reflect actual GFR. Performed By: #### S APCR #### [facility] CLIA [id number] [address] [place] [address] [place] Glucose [Mass/Vol] 145 mg/dL High 74-99 [facility] Comment on above: Order Comment: Speci men Type: SWAB Ordering Facility: [facility] Address: [address] [place] [address] Result Comment: The [place] [employer] Association (ADA) provides guidance for cutoff [...] Standards of Medical Care in Diabetes 2016, [place] [employer]. Diabetes Care. 2016.39(Suppl 1). Performed By: #### S APCR #### [facility] CLIA [id number] [address] [place] [address] [place] Potassium [Moles/Vol] 4.8 mmol/L Normal 3.7-5.1 [facility] Comment on above: Order Comment: Speci men Type: SWAB [facility]ing Facility: [facility] Address: [address] [place] [address] Performed By: #### S APCR #### [facility] CLIA [id number] [address] [place] [address] [place] Protein [Mass/Vol] 5.0 g/dL Low 6.3-8.0 [facility] Comment on above: Order Comment: Speci men Type: SWAB [facility]ing Facility: [facility] Address: [address] [place] [address] Performed By: #### S APCR #### [facility] CLIA [id number] [address] [place] [address] [place] Sodium [Moles/Vol] 126 mmol/L Low 136-144 [facility] Comment on above: Order Comment: Speci men Type: SWAB [facility]ing Facility: [facility] Address: [address] [place] [address] Performed By: #### S APCR #### [facility] CLIA [id number] [address] [place] [address] [place] Urea nitrogen [Mass/Vol] 83 mg/dL High 9-24 [facility] Comment on above: Order Comment: Speci men Type: SWAB [facility] Facility: [facility] Address: [address] [place] [address] Performed By: #### S APCR #### [facility] CLIA [id number] [address] [place] [address] [place] ECG COMPLETEon 01-27-2025 ECG COMPLETE Ventricular Rate : 7 0 BPM Atrial Rate : 70 BPM P-R Interval : 206 ms QRS Duration : 116 ms Q-T Interval : 422 ms QTC Calculation(Bazett) : 455 ms Calculated P [place] : 23 degrees Calculated R [place] : -32 degrees Calculated T [place] : 8 degrees SINUS RHYTHM WITH OCCASIONAL PREMATURE VENTRICULAR COMPLEXES LEFT AXIS DEVIATION ANTEROSEPTAL MYOCARDIAL INFARCTION , AGE UNDETERMINED ABNORMAL ECG Confirmed by MD RICHTER HEBA ([id number]) on 02/22/2025 10:43:13 AM NAME : ITALO BURGOS PID : [id number] : 1970 Gender : Male Race : ORD : [id number] Procedure Date : Jan 27 2025 06:15:13 Edit Date : Feb 22 2025 10:43:15 Diagnosis: SINUS RHYTHM WITH OCCASIONAL PREMATURE VENTRICULAR COMPLEXES LEFT AXIS DEVIATION ANTEROSEPTAL MYOCARDIAL INFARCTION , AGE UNDETERMINED ABNORMAL ECG Confirmed by MD RICHTER HEBA ([id number]) on 02/22/2025 10:43:13 AM Test Reason : Pre-OP Location : 35 : [place] [address] Overread By : MD RICHTER HEBA Edited By : MD RICHTER HEBA Referred By : YONY SOLIS Acquired by : DIVYA GONSALEZ [facility] Glomerular filtration rate ( GFR) estimation/1.73 sq m using serum, plasma, or whole bOrdered By: Yony Solis on 01-27-2025 GFR/1.73 sq M.predicted among non-blacks MDRD (S/P/Bld) [Vol rate/Area] 5 mL/min/{1.73_m2} Low >60 [facility] Comment on above: mL/min/1.73m2 CKD-EP I Creatinine Equation (2020) Glucose measurement at [facility] deOrdered By: Yony Solis on 01-27-2025 Glucose [Mass/Vol] 127 mg/dL High 74-106 [facility] Comment on above: MANAGEMENT OF PATIEN T CARE PER NURSING PROTOCOL Glucose [Mass/Vol] 128 mg/dL High 74-106 [facility] Comment on above: MANAGEMENT OF PATIEN T CARE PER NURSING PROTOCOL HISTORY PHYSICALon HISTORY PHYSICAL HNO ID: [id number] Author: KATHIA SANTIAGO MD Service: General Internal Medicine Author Type: Resident Type: H&P Filed: 01/27/2025 18:45 Note Text: Attestation signed by Kathia Santiago MD at 01/27/2025 6:45 PM (Updated) I have seen the patient face to face and reviewed the history and physical examination obtained and documented by the resident/ fellow/ physician clinical nutrition manager. I personally participated in the de anda [...] Zaida Gaston MD NIGHT AND WEEKEND COVERAGE: [facility] COVERAGE: Days: [phone], please page Joel Negro Tavares for patient issues. CHIEF COMPLAINT: Obstructive ILDA [...] in the right transplanted kidney ureter causing kzmsizzo-ka-owhmhp hydroureteronephrosis, perinephric stranding, and a thickened bladder wall suggestive of cystitis. Transferred to [facility] for higher level care, urology placed a right nephrostomy tube for obstruction relief. Immunosuppressive regimen maintained with tacrolimus and prednisone; mycophenolate held due to infection concerns. He is currently NPO, on sliding scale insulin for hyperglycemia, and has an indwelling Wilhelm catheter. He denies new urinary symptoms and reports no fever or chills. PAST MEDICAL HISTORY Diagnosis Date Acute diastolic (congestive) heart failure ([facility]) Bronchitis Chronic kidney failure, stage 4 (severe) ([facility]) 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 ([facility]) 12/16/2018 Depression Detached retina DM type 2, goal HbA1c < 7% ([facility]) Erectile dysfunction, unspecified erectile dysfunction type ESRD (end stage renal disease) ([facility]) GERD (gastroesophageal reflux disease) Hyperlipidemia Kidney replaced by transplant ([facility]) Kidney stones LUANNE (obstructive sleep apnea) PNA (pneumonia) Proliferative retinopathy 02/10/2019 PTE (post-transplant erythrocytosis) Snoring Unspecified essential hypertension Vitamin D deficiency Vitamin D deficiency PAST SURGICAL HISTORY Procedure Laterality Date AMPUTATION TOE,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 08/08/2018 Done at [facility] by Satish Phan MD CHOLECYSTECTOMY 1998 Cholecystectomy COLONOSCOPY 12/04/2018 COLONOSCOPY SCREENING 04/01/2024 CYSTO W/COMPLEX REMOVAL STONE AND STENT 1999 [facility]/04[facility] VARICIES INJ 04/01/2024 PAST SURGICAL HISTORY OF Left 2012 AND 2014 removal eye fluid with instillation oil FAMILY HISTORY Problem Relation Age of Onset Colon Cancer Father 53 Diabetes Brother 52 Diabetes Sister Diabetes Mother 78 Heart Attack Mother Cancer Brother 49 lung Diabetes Son Social History Tobacco Use Smoking status: Never Smokeless tobacco: Former Type (more content not included)... Normal [facility] HISTORY PHYSICAL HNO ID: [id number] Author: TENZIN DANIEL MD Service: Interventional Radiology [...] 27, 2025 TIME: 7:58 AM PAGER: Normal [facility] HISTORY PHYSICAL HNO ID: [id number] Author: RAY PINA MD Service: Critical Care Author Type: Physician Type: H&P Filed: 01/27/2025 08:58 Note Text: MICU: HISTORY AND PHYSICAL Italo Burgos [id number] ADMISSION DATE: 01/27/2025 LENGTH OF STAY: 0 MICU DAY: PRIMARY CARE PHYSICIAN: Zaida Gaston MD Subjective Chief Complaint ILDA History of Present Illness Italo Burgos is a 54 year old male with ILDA from [facility]. PMH s/f T2DM c/b ESRD s/p DDRT 03/2021 (envarsus, MMF, pred) with graft CKD (baseline cr 1.4-1.6), HTN, GERD, MDD, L foot infections s/p toe amputations. Per OSH and records, CT A/P showed 1cm obstructing stone in transplanted R kidney with ufkvoiws-xn-brtxdw upstream hydroureteronephrosis; severely thickened urinary bladder wall [...] illnesses. Prior to arrival to [facility]U: At [facility], c/f DKA, ILDA. DKA ruled out [...] Diagnosis Date Acute diastolic (congestive) heart failure ([facility]) Bronchitis Chronic kidney failure, stage 4 (severe) ([facility]) 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 ([facility]) 12/16/2018 Depression Detached retina DM type 2, goal HbA1c < 7% ([facility]) Erectile dysfunction, unspecified erectile dysfunction type ESRD (end stage renal disease) ([facility]) GERD (gastroesophageal reflux disease) Hyperlipidemia Kidney replaced by transplant ([facility] [facility] Kidney stones LUANNE (obstructive sleep apnea) PNA (pneumonia) Proliferative retinopathy 02/10/2019 PTE (post-transplant erythrocytosis) Snoring Unspecified essential hypertension Vitamin D deficiency Vitamin D deficiency Past Surgical History PAST SURGICAL HISTORY Procedure Laterality Date AMPUTATION TOE,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 08/08/2018 Done at [facility] by Satish Phan MD CHOLECYSTECTOMY 1998 Cholecystectomy COLONOSCOPY 12/04/2018 COLONOSCOPY SCREENING 04/01/2024 CYSTO W/COMPLEX REMOVAL STONE AND STENT 1999 EGD 12/04/2018 EGD W/O [facility] SPEC VARICIES INJ 04/01/2024 PAST [...] mg 1 tablet (BACTRIM) 1 tablet ORAL MO-- pantoprazole DR 20 mg tab(s) (PROTONIX) 20 mg ORAL DAILY tacrolimus IR 1 mg cap(s) (PROGRAF) 1 mg ORAL DAILY AT 6 PM Allergies Patient has no known allergies. Review of Systems Negative except as detailed above. Objective Physical Exam BP (more content not included)... Normal [facility] IR NEPHROSTOMY TUBE PLACEon 01-27-[address] * * *Final Report* * * DATE OF EXAM: Jan 27 2025 8:53AM [facility] 0779 - IR NEPHROSTOMY TUBE PLACE / [...] Start of procedure: 834 End of procedure: 852 Patient position: Supine Preparation: The site was prepared and draped using all elements of maximal sterile barrier technique including sterile gloves, sterile gown, cap, mask, large sterile sheet, sterile ultrasound probe cover, hand hygiene and cutaneous antisepsis. Antibiotics: Ceftriaxone Antibiotic infusion start time: 814 Prophylactic antibiotic administered: Within 1 hour of [...] was performed. Genitourinary catheter placed: 10 F [place] [employer] nephrostomy Findings: Severe hydronephrosis on ultrasound [...] The procedure was performed by the: the funeral home assistant, and the attending radiologist was present for all critical and de anda portions of the procedure, and was immediately available to furnish services during the entire procedure. The attending radiologist performed the (more content not included)... Normal [facility] Magnesium SerPl-mCncon 01-27 Magnesium [Mass/Vol] 1.8 mg/dL Normal 1.7-2.3 [facility] Comment on above: Order Comment: Speci men Type: SWAB [facility]ing Facility: [facility] Address: [address] [place] [address] Performed By: #### S APCR #### [facility] CLIA [id number] [address] [place] [address] [place] [address] [place] NURSING PROGon 01-27-2025 NURSING PROG HNO ID: [id number] Author: WILLIAM THIBODEAUX, ANDER Service: Nursing Author Type: Registered Nurse Type: Nursing Progress Note Filed: 01/27/2025 19:35 Note Text: Other: Blood pressure 89/41, patient denies dizziness/chest pain. notified. 500 cc bolus given. Repeat blood pressure 107/63. Normal [facility] PT EDon 01-27-2025 PT ED HNO ID: [id number] Author: NELI GUTIERREZ RN Service: Nursing Author Type: Registered Nurse [...] RN In Department: HOSP MAIN G062 Normal [facility] PT panel Coag (PPP)on 2024 INR Coag (PPP) [Relative time] 1.0 {INR} Normal 0.9-1.3 [facility] Comment on above: Order Comment: Speci men Type: BLOOD SPECIMEN Ordering Facility: [facility] Address: [address] [place] [address] Result Comment: Kenzie min K Antagonist (VKA) Therapeutic Range: INR 2 to 3 (Target INR of 2.5) Note: For patients treated with VKA drugs, such as warfarin, the [place] [employer] 2012 Guideline recommends [...] Chest 2012, 141:7S-47S Aline RA, et al. [facility] 2017, 70: 252-289 Performed By: #### 1 1253-2 #### [facility] CLIA [id number] [address] [place] [address] [place] PT Coag (PPP) [Time] 11.0 s Normal 9.7-13.0 [facility] Comment on above: Order Comment: Speci men Type: BLOOD SPECIMEN [facility]ing Facility: [facility] Address: [address] [place] [address] Performed By: #### 1 1253-2 #### [facility] CLIA [id number] [address] [place] [address] [place] Phosphate SerPl-mCncon 01-27 Phosphate [Mass/Vol] 5.5 mg/dL High 2.7-4.8 [facility] Comment on above: Order Comment: Speci men Type: SWAB [facility]ing Facility: [facility] Address: [address] [place] [address] Performed By: #### S APCR #### [facility] CLIA [id number] [address] [place] [address] [place] Potassium measurement (mass/ volume)Ordered By: Yony Solis on 01-27-2025 Potassium (Unsp spec) [Mass/Vol] 4.6 mmol/L 3.3-5.1 [facility] STAPHYLOCOCCUS AUREUS AND MR SA SCREEN, PCR, NASALon 01-27-2025 S. aureus and MRSA panel CARMEN+probe (Nose) Not detected Normal Not Detected [facility] Comment on above: Order Comment: Speci men Type: SWAB [facility]ing Facility: [facility] Address: [address] [place] [address] Performed By: #### S APCR #### [facility] CLIA [id number] [address] [place], [place] [address] [address] [place] Serum creatinine measurement (mass/volume)Ordered By: Yony Solis on 01-27-2025 Creatinine [Mass/Vol] 10.50 mg/dL High 0.70-1.20 [facility] Comment on above: Critical Result(s) C alled at: 0222 by: RUDY ALFRED Results read back by same. Serum glucose measurement (m ass/volume)Ordered By: Yony Solis on 01-27-2025 Glucose [Mass/Vol] 116 mg/dL High 70-99 [facility] Serum or plasma calcium regi urement (mass/volume)Ordered By: Yony Solis on 01-27-2025 Calcium [Mass/Vol] 8.2 mg/dL 7.6-11.0 [facility] Serum or plasma urea nitroge n measurement (mass/volume)Ordered By: Yony Solis on 01-27-2025 Urea nitrogen [Mass/Vol] 90 mg/dL High 4-19 [facility] Sodium levelOrdered By: Yony Solis on 01-27-2025 Sodium [Moles/Vol] 126 mmol/L Low 133-145 [facility] TYPE + SCREENon 01-27-2025 ABO A Normal [facility] Comment on above: Order Comment: Speci men Type: BLOOD SPECIMEN [facility]ing Facility: [facility] Address: [address] [place] [address] Performed By: #### T SCR #### [facility] [place] [id number] [address] [place] [address] [place] Rh Nom (Bld) Positive Normal [facility] Comment on above: Order Comment: Speci men Type: BLOOD SPECIMEN [facility]ing Facility: [facility] Address: [address] [place] [address] Performed By: #### T SCR #### [facility] CLIA [id number] [address] [place], [place] [address] [address] [place] TYPE AND SCREEN EXPIRATION 01/30/2025 23:59 Normal [facility] Comment on above: Order Comment: Speci men Type: BLOOD SPECIMEN Ordering Facility: [facility] Address: [address] [place] [address] Performed By: #### T SCR #### [facility] CLIA [id number] [address] [place] [address] [place] Tacrolimus Bld-mCncon 2024 Tacrolimus (Bld) [Mass/Vol] 13.4 ng/mL Normal 5.0-20.0 [facility] Comment on above: Order Comment: Gabriel martin Type: SWAB [facility]ing Facility: [facility] Address: [address] [place] [address] Result Comment: Eileen vidualized target levels for [...] situation. Test performed by chemiluminescent immunoassay using [employer] i. Performed By: #### S APCR #### [facility] CLIA [id number] [address] [place] [address] [place] Urinalysis complete panel (U )on 01-27-2025 Bacteria LM.HPF (Urine sed) [#/Area] Negative Normal Negative [facility] Comment on above: Order Comment: Gabriel martin Type: BLOOD SPECIMEN [facility]ing Facility: [facility] Address: [address] [place] [address] Performed By: #### 1 1253-2 #### [facility] CLIA [id number] [address] [place] [address] [place] Bilirubin Ql (U) 2+ Abnormal Negative [facility] Comment on above: Order Comment: Gabriel martin Type: BLOOD SPECIMEN Ordering Facility: [facility] Address: [address] [place] [address] Result Comment: Sugg est correlation with clinical findings and serum bilirubin if clinically indicated. Performed By: #### 1 1253-2 #### [facility] CLIA [id number] [facility] [address] [address] [place] Clarity (Unsp spec) Turbid Abnormal Clear [facility] Comment on above: Order Comment: Speci men Type: BLOOD SPECIMEN Ordering Facility: [facility] Address: [address] [place], [place] [address] Performed By: #### 1 1253-2 #### [facility] CLIA [id number] [address] [place], [place] [address] [place] Color (U) Red Abnormal Yellow [facility] Comment on above: Order Comment: Speci men Type: BLOOD SPECIMEN Ordering Facility: [facility] Address: [address] [place] [address] Performed By: #### 1 1253-2 #### [facility] CLIA [id number] [address] [place] [address] [place] Epithelial cells LM.HPF (Urine sed) [#/Area] None Seen Normal [facility] Comment on above: Order Comment: Speci men Type: BLOOD SPECIMEN [facility]ing Facility: [facility] Address: [address] [place] [address] Performed By: #### 1 1253-2 #### [facility] CLIA [id number] [address] [place] [address] [place] Glucose Test strip (U) [Mass/Vol] Negative Normal Negative [facility] Comment on above: Order Comment: Speci men Type: BLOOD SPECIMEN Ordering Facility: [facility] Address: [address] [place], [place] [address] Performed By: #### 1 1253-2 #### [facility] CLIA [id number] [address] [place], [place] [address] [place] Hemoglobin Ql (U) 3+ Abnormal Negative [facility] Comment on above: Order Comment: Speci men Type: BLOOD SPECIMEN [facility]ing Facility: [facility] Address: [address] [place] [address] Performed By: #### 1 1253-2 #### [facility] CLIA [id number] [address] [place] [address] [place] Hyaline casts (Urine sed) [#/Area] 0 /[LPF] Normal 0 /LPF [facility] Comment on above: Order Comment: Speci men Type: BLOOD SPECIMEN Ordering Facility: [facility] Address: [address] [place] [address] Performed By: #### 1 1253-2 #### [facility] CLIA [id number] [address] [place] [address] [place] Ketones Ql (U) Negative Normal Negative [facility] Comment on above: Order Comment: Speci men Type: BLOOD SPECIMEN [facility]ing Facility: [facility] Address: [address] [place] [address] Performed By: #### 1 1253-2 #### [facility] CLIA [id number] [address] [place] [address] [place] Leukocyte esterase Test strip Ql (U) 2+ Abnormal Negative [facility] Comment on above: Order Comment: Speci men Type: BLOOD SPECIMEN Ordering Facility: [facility] Address: [address] [place] [address] Performed By: #### 1 1253-2 #### [facility] CLIA [id number] [address] [place] [address] [place] Nitrite Ql (U) Positive Abnormal Negative [facility] Comment on above: Order Comment: Speci men Type: BLOOD SPECIMEN Ordering Facility: [facility] Address: [address] [place] [address] Performed By: #### 1 1253-2 #### [facility] CLIA [id number] [address] [place] [address] [place] pH (U) 5.0 [pH] Normal <8.5 [facility] Comment on above: Order Comment: Speci men Type: BLOOD SPECIMEN Ordering Facility: [facility] Address: [address] [place] [address] Performed By: #### 1 1253-2 #### [facility] CLIA [id number] [address] [place] [address] [place] Protein (U) [Mass/Vol] 3+ Abnormal Negative Cl [facility] Comment on above: Order Comment: Speci men Type: BLOOD SPECIMEN [facility]ing Facility: [facility] Address: [address] [place] [address] Performed By: #### 1 1253-2 #### [facility] CLIA [id number] [address] [place] [address] [place] RBC LM.HPF (Urine sed) [#/Area] /[HPF] Abnormal 0-2 /HPF [facility] Comment on above: Order Comment: Speci men Type: BLOOD SPECIMEN [facility]ing Facility: [facility] Address: [address] [place] [address] Performed By: #### 1 1253-2 #### [facility] CLIA [id number] [address] [place] [address] [place] Specific gravity (U) [Rel density] 1.017 Normal 1.005-1.030 [facility] Comment on above: Order Comment: Speci men Type: BLOOD SPECIMEN [facility] Facility: [facility] Address: [address] [place] [address] Performed By: #### 1 1253-2 #### [facility] CLIA [id number] [address] [place] [address] [place] Urobilinogen Ql (U) 0.2 EU/dL Normal 0.2-1.0 EU/dL [facility] Comment on above: Order Comment: Speci men Type: BLOOD SPECIMEN Ordering Facility: [facility] Address: [address] [place] [address] Performed By: #### 1 1253-2 #### [facility] CLIA [id number] [address] [place] [address] [place] WBC LM.HPF (Urine sed) [#/Area] 0-5 /HPF Normal 0-5 /HPF [facility] Comment on above: Order Comment: Speci men Type: BLOOD SPECIMEN [facility]: [facility] Address: [address] [place] [address] Performed By: #### 1 1253-2 #### [facility] CLIA [id number] [address] [place] [address] [place] Urine Cultureon 01-27-2025 URC Culture exhibits no growth. Normal [facility] Comment on above: Performed By: #### L 500.2500, L100.0100 #### [facility] [address] [place] [address]. [place], [place], [address] aPTT PPPon 01-27-2025 aPTT Coag (PPP) [Time] 27.0 s Normal 23.0-32.4 [facility] Comment on above: Order Comment: Speci men Type: BLOOD SPECIMEN [facility] Facility: [facility] Address: [address] [place] [address] Performed By: #### 1 1253-2 #### [facility] IA [id number] [address] [place] [address] [place] 12 Lead EKGon 01-26-2025 12 Lead EKG [facility] Cardiovascular Services [address] [place] [address] 12 Lead EKG 01/26/25 1652 MR#: [id number] Acct: [id number] Name: ITALO BURGOS Rep #: [id number] : 1970 54 From: Tylor Rudd MD [...] for LVH, may be normal variant ( [place] product ) Cannot rule out Septal infarct Abnormal ECG Confirmed by IBRAHIMA NORTON, TYLOR ([id number]), news videotape editor JEANETTE MARQUEZ ([id number]) on 01/27/2025 10:36:28 AM Referred By: Confirmed By: TYLOR RUDD MD 01/27/25 1036 Date Tylor Rudd MD CC: Dr. Zaida Gaston MD; Dr. Yony Solis DO Signed Normal [facility] Abdomen/Pelvis without Conto n 01-26-2025 Abdomen/Pelvis without Cont [facility] Imaging Services [address] [place] [address] Abdomen/Pelvis without Cont MR#: [id number] Acct: [id number] Name: ITALO BURGOS Rep #: [id number] : 1970 54 From: Gen Jack MD PCP: Dr. Zaida Gaston MD Status: REG ER Study: Abdomen/Pelvis without Cont Date of Exam: 01/08 Exam# [id number] Ordering Dr: Yony Solis DO PROCEDURE: ABDOMEN/PELVIS [...] surrounding inflammation. Adrenals: Normal. Kidneys: Severely atrophic [place] kidneys. Right pelvic transplanted kidney transplanted right kidney ureter 10 mm calculus with severe upstream hydroureteronephrosis. Transplant kidney perinephric stranding which may represent back pressure. Bladder: Markedly concentrically thickened wall. Reproductive Organs: Unremarkable Bowel: Appendix: Lymph nodes: Vasculature: Peritoneum / Retroperitoneum: Mild atherosclerosis. Small volume ascites. Bones: CT/Abdomen/Pelvis without Cont IMPRESSION: 1. Transplanted right kidney obstructing ureteral calculus with rhnhyobd-km-jiuidc upstream hydroureteronephrosis. 2. Severely thickened urinary bladder wall suspicious for cystitis. 3. Severely atrophic [place] kidneys. 4. Anasarca. 5. Small volume ascites. OVERALL FINAL ASSESSMENT: . LI-RADS is not meant to be used in patients <18 years or patients with cirrhosis due to congenital hepatic fibrosis or due to vascular disorders, because these patients have a lower chance of developing HCC. Reading Location: [place] [address] CC: Dr. Zaida Gaston MD; Dr. Yony Solis DO Dispersion Mixer: Signed Normal [facility] Absolute lymphocyte countOrd ered By: ED PROVIDER on 01-26-2025 Lymphocytes Auto (Unsp spec) [#/Vol] 0.56 10*3/uL Low 0.83-4.51 [facility] Absolute neutrophil countOrd ered By: ED PROVIDER on 01-26-2025 Neutrophils (Bld) [#/Vol] 8.1 10*3/uL High 2.0-7.7 [facility] Amorphous sediment detection in urine sediment by light microscopyOrdered By: Yony Solis on 01-26-2025 Amorphous sediment LM Ql (Urine sed) 1+ [facility] Automated blood erythrocyte countOrdered By: ED PROVIDER on 01-26-2025 RBC (Bld) [#/Vol] 4.14 10*6/uL Low 4.6-6.2 [facility] Comment on above: Performed By: #### L 500.2500 #### [facility] [address] [place], [address] Automated blood hematocrit ( percentage)Ordered By: ED PROVIDER on 01-26-2025 Hematocrit (Bld) [Volume fraction] 37.1 % Low 40-54 [facility] Comment on above: Performed By: #### L 500.2500 #### [facility] [address] [place], [address] Automated lymphocyte count a s percentage of total leukocytesOrdered By: ED PROVIDER on 01-26-2025 Lymphocytes/100 WBC Auto (Unsp spec) 5.9 % Low 19-41 [facility] Basic Metabolic Profile (BMP )on 01-26-2025 BUN/CRE 9.4 RATIO Low 10-20 [facility] Comment on above: Performed By: #### L 500.2500, L100.0100 #### [facility] [address] [place], [address] Calcium [Mass/Vol] 5.6 mg/dL Invalid Interpretation Code 7.6-11.0 [facility] Comment on above: Result Comment: Crit ical Result(s) Called at: 2341 by: RUDY KELLEY TO SYDNEE DOUGHERTY??Results read back by same. Performed By: #### L 500.2500, L100.0100 #### [facility] [address] [place], [address] Chloride [Moles/Vol] 108 mmol/L Normal 98-108 [facility] Comment on above: Performed By: #### L 500.2500, L100.0100 #### [facility] [address] [place], [address] CO2 [Moles/Vol] 13.1 mmol/L Low 21.0-32.0 [facility] Comment on above: Performed By: #### L 500.2500, L100.0100 #### [facility] [address] [place], [address] Creatinine [Mass/Vol] 7.23 mg/dL High 0.70-1.20 [facility] Comment on above: Performed By: #### L 500.2500, L100.0100 #### [facility] [address] [place], [address] ECRCL 12.21 ml/min Low 50-250 [facility] Comment on above: Performed By: #### L 500.2500, L100.0100 #### [facility] [address] [place], [address] GAP 13 Normal 5-15 [facility] Comment on above: Performed By: #### L 500.2500, L100.0100 #### [facility] [address] [place], [address] GFR/1.73 sq M.predicted among non-blacks MDRD (S/P/Bld) [Vol rate/Area] 8 mL/min/{1.73_m2} Low >60 [facility] Comment on above: Result Comment: mL/m in/1.73m2 CKD-EPI Creatinine Equation (2020) Performed By: #### L 500.2500, L100.0100 #### [facility] [address] [place], [address] Glucose [Mass/Vol] 225 mg/dL High 70-99 [facility] Comment on above: Performed By: #### L 500.2500, L100.0100 #### [facility] [address] [place], [address] Potassium [Moles/Vol] 3.0 mmol/L Low 3.3-5.1 [facility] Comment on above: Performed By: #### L 500.2500, L100.0100 #### [facility] [address] [place], [address] Sodium [Moles/Vol] 133 mmol/L Normal 133-145 [facility] Comment on above: Performed By: #### L 500.2500, L100.0100 #### [facility] [address] [place], [address] Urea nitrogen [Mass/Vol] 68 mg/dL High 4-19 [facility] Comment on above: Performed By: #### L 500.2500, L100.0100 #### [facility] [address] [place], [address] BUN/CRE 8.9 RATIO Low 10-20 [facility] Comment on above: Performed By: #### L 500.2500, L100.0100 #### [facility] [address] [place], [address] Calcium [Mass/Vol] 7.0 mg/dL Low 7.6-11.0 [facility] Comment on above: Performed By: #### L 500.2500, L100.0100 #### [facility] [address] [place], [address] Chloride [Moles/Vol] 79 mmol/L Low 98-108 [facility] Comment on above: Performed By: #### L 500.2500, L100.0100 #### [facility] [address] [place], [address] CO2 [Moles/Vol] 13.8 mmol/L Low 21.0-32.0 [facility] Comment on above: Performed By: #### L 500.2500, L100.0100 #### [facility] [address] [place], [address] Creatinine [Mass/Vol] 8.95 mg/dL Invalid Interpretation Code 0.70-1.20 [facility] Comment on above: Result Comment: Crit ical Result(s) Called at: by:??Results read back by same. Critical Result(s) Called ASCHAFER at: 2155 by: SOUTH??Results read back by same. Performed By: #### L 500.2500, L100.0100 #### [facility] [address] [place], [address] ECRCL 9.87 ml/min Invalid Interpretation Code 50-250 [facility] Comment on above: Performed By: #### L 500.2500, L100.0100 #### [facility] [address] [place], [address] GAP 25 High 5-15 [facility] Comment on above: Performed By: #### L 500.2500, L100.0100 #### [facility] [address] [place], [address] GFR/1.73 sq M.predicted among non-blacks MDRD (S/P/Bld) [Vol rate/Area] 6 mL/min/{1.73_m2} Low >60 [facility] Comment on above: Result Comment: mL/m in/1.73m2 CKD-EPI Creatinine Equation (2020) Performed By: #### L 500.2500, L100.0100 #### [facility] [address] [place], [address] Glucose [Mass/Vol] 877 mg/dL Invalid Interpretation Code 70-99 [facility] Comment on above: Result Comment: Crit ical Result(s) Called ASCHAFER at: 2155 by: BWORKMAN??Results read back by same. Performed By: #### L 500.2500, L100.0100 #### [facility] [address] [place], [address] Potassium [Moles/Vol] 4.3 mmol/L Normal 3.3-5.1 [facility] Comment on above: Performed By: #### L 500.2500, L100.0100 #### [facility] [address] [place], [address] Sodium [Moles/Vol] 117 mmol/L Invalid Interpretation Code 133-145 [facility] Comment on above: Result Comment: Crit ical Result(s) Called ASCHAFER at: 2155 by: BWORKMAN??Results read back by same. Performed By: #### L 500.2500, L100.0100 #### [facility] [address] [place], [address] Urea nitrogen [Mass/Vol] 80 mg/dL High 4-19 [facility] Comment on above: Performed By: #### L 500.2500, L100.0100 #### [facility] [address] [place], [address] BUN/CRE 8.9 RATIO Low 10-20 [facility] Comment on above: Performed By: #### L 500.2500 #### [facility] [address] [place], [address] Calcium [Mass/Vol] 7.5 mg/dL Low 7.6-11.0 [facility] Comment on above: Performed By: #### L 500.2500 #### [facility] [address] [place], [address] Chloride [Moles/Vol] 90 mmol/L Low 98-108 [facility] Comment on above: Performed By: #### L 500.2500 #### [facility] [address] [place], [address] CO2 [Moles/Vol] 14.3 mmol/L Low 21.0-32.0 [facility] Comment on above: Performed By: #### L 500.2500 #### [facility] [address] [place], [address] Creatinine [Mass/Vol] 9.55 mg/dL Invalid Interpretation Code 0.70-1.20 [facility] Comment on above: Result Comment: Crit ical Result(s) Called LSPARR at: 2012 by: SOUTH??Results read back by same. Performed By: #### L 500.2500 #### [facility] [address] [place], [address] ECRCL 9.25 ml/min Invalid Interpretation Code 50-250 [facility] Comment on above: Performed By: #### L 500.2500 #### [facility] [address] [place], [address] GAP 17 High 5-15 [facility] Comment on above: Performed By: #### L 500.2500 #### [facility] [address] [place], [address] GFR/1.73 sq M.predicted among non-blacks MDRD (S/P/Bld) [Vol rate/Area] 6 mL/min/{1.73_m2} Low >60 [facility] Comment on above: Result Comment: mL/m in/1.73m2 CKD-EPI Creatinine Equation (2020) Performed By: #### L 500.2500 #### [facility] [address] [place], [address] Glucose [Mass/Vol] 699 mg/dL Invalid Interpretation Code 70-99 [facility] Comment on above: Result Comment: Crit ical Result(s) Called ACOLE at: 1949 by: SOUTH??Results read back by same. Performed By: #### L 500.2500 #### [facility] [address] [place], [address] Potassium [Moles/Vol] 4.8 mmol/L Normal 3.3-5.1 [facility] Comment on above: Performed By: #### L 500.2500 #### [facility] [address] [place], [address] Sodium [Moles/Vol] 121 mmol/L Low 133-145 [facility] Comment on above: Performed By: #### L 500.2500 #### [facility] [address] [place], [address] Urea nitrogen [Mass/Vol] 85 mg/dL High 4-19 [facility] Comment on above: Performed By: #### L 500.2500 #### [facility] [address] [place], [address] BUN/CRE 8.7 RATIO Low 10-20 [facility] Comment on above: Performed By: #### L 500.2500, L100.0100 #### [facility] [address] [place], [address] Calcium [Mass/Vol] 8.5 mg/dL Normal 7.6-11.0 [facility] Comment on above: Performed By: #### L 500.2500, L100.0100 #### [facility] [address] [place], [address] Chloride [Moles/Vol] 83 mmol/L Low 98-108 [facility] Comment on above: Performed By: #### L 500.2500, L100.0100 #### [facility] [address] [place], [address] CO2 [Moles/Vol] 17.6 mmol/L Low 21.0-32.0 [facility] Comment on above: Performed By: #### L 500.2500, L100.0100 #### [facility] [address] [place], [address] Creatinine [Mass/Vol] 10.30 mg/dL Invalid Interpretation Code 0.70-1.20 [facility] Comment on above: Result Comment: Crit ical Result(s) Called at: by:??Results read back by same. Critical Result(s) Called ACOLE at: 1646 by: SOUTH??Results read back by same. Performed By: #### L 500.2500, L100.0100 #### [facility] [address] [place], [address] ECRCL 8.57 ml/min Invalid Interpretation Code 50-250 [facility] Comment on above: Performed By: #### L 500.2500, L100.0100 #### [facility] [address] [place], [address] GAP 17 High 5-15 [facility] Comment on above: Performed By: #### L 500.2500, L100.0100 #### [facility] [address] [place], [address] GFR/1.73 sq M.predicted among non-blacks MDRD (S/P/Bld) [Vol rate/Area] 5 mL/min/{1.73_m2} Low >60 [facility] Comment on above: Result Comment: mL/m in/1.73m2 CKD-EPI Creatinine Equation (2020) Performed By: #### L 500.2500, L100.0100 #### [facility] [address] [place], [address] Glucose [Mass/Vol] 838 mg/dL Invalid Interpretation Code 70-99 [facility] Comment on above: Result Comment: Crit ical Result(s) Called ACOLE at:1646 by: [employer]ORKMAN??Results read back by same. Performed By: #### L 500.2500, L100.0100 #### [facility] [address] [place], [address] Potassium [Moles/Vol] 5.7 mmol/L High 3.3-5.1 [facility] Comment on above: Performed By: #### L 500.2500, L100.0100 #### [facility] [address] [place], [address] Sodium [Moles/Vol] 118 mmol/L Invalid Interpretation Code 133-145 [facility] Comment on above: Result Comment: Crit ical Result(s) Called ACOLE at:1646 by: BWORKMAN??Results read back by same. Performed By: #### L 500.2500, L100.0100 #### [facility] [address] [place], [address] Urea nitrogen [Mass/Vol] 90 mg/dL High 4-19 [facility] Comment on above: Performed By: #### L 500.2500, L100.0100 #### [facility] [address] [place], [address] Basophil percentageOrdered B y: ED PROVIDER on 01-26-2025 Basophils/100 WBC (Bld) 0.2 % Normal 0-1 [facility] Comment on above: Performed By: #### L 500.2500 #### [facility] [address] [place], [address] Bedside Glucoseon 01-26-2025 FINGERSTICK GLU > 500 Invalid Interpretation Code 74-106 [facility] Comment on above: Result Comment: Dr Cholo shafer Followed MANAGEMENT OF PATIENT CARE PER NURSING PROTOCOL Performed By: #### L 500.2500, L100.0100 #### [facility] [address] [place], [address] FINGERSTICK GLU > 500 Invalid Interpretation Code 74-106 [facility] Comment on above: Result Comment: Dr Cholo shafer Followed MANAGEMENT OF PATIENT CARE PER NURSING PROTOCOL Performed By: #### L 501.080 #### [facility] [address] [place], [address] Beta-Hydroxbytyrateon 2024 BETA-HYDROXYBUT 0.7 mmol/L Normal 0.0-0.3 [facility] Comment on above: Performed By: #### L 500.2500 #### [facility] [address] [place], [address] Bilirubin Test strip Ql (U)O rdered By: Yony Solis on 01-26-2025 Bilirubin Ql (U) Negative Negative [facility] Bilirubin directOrdered By: Yony Solis on 01-26-2025 Bilirubin.direct [Mass/Vol] 0.30 mg/dL Normal 0.00-0.30 [facility] Comment on above: Order Comment: BMP D ONE AT 1600 Performed By: #### L 500.2500, L100.0100 #### [facility] [address] [place], [address] Bilirubin, totalOrdered By: Yony Solis on 01-26-2025 Bilirubin [Mass/Vol] 0.58 mg/dL Normal 0.00-1.30 [facility] Comment on above: Order Comment: BMP D ONE AT 1600 Performed By: #### L 500.2500, L100.0100 #### [facility] [address] [place], [address] CBC W/Diff, Automatedon 01-08 0-2024 Absolute Lymph 0.56 X10 3/uL Low 0.83-4.51 [facility] Comment on above: Performed By: #### L 500.2500 #### [facility] [address] [place], [address] Absolute Neut 8.1 X10 3/uL High 2.0-7.7 [facility] Comment on above: Performed By: #### L 500.2500 #### [facility] [address] [place], [address] IG% 0.500 Normal 0.0-0.9 [facility] Comment on above: Result Comment: IG% - Immature Granulocytes (promyelocytes, myelocytes and metamyelocytes) > 1% indicates that a LEFT SHIFT is Present. Performed By: #### L 500.2500 #### [facility] [address] [place], [address] Lymphocytes/100 WBC (Bld) 5.9 % Low 19-41 [facility] Comment on above: Performed By: #### L 500.2500 #### [facility] [address] [place], [address] Nucleated RBC (Bld) [#/Vol] 0 10*3/uL Normal 0-5 [facility] Comment on above: Performed By: #### L 500.2500 #### [facility] [address] [place], [address] RDW SD 38.0 fl Normal 35.1-43.9 [facility] Comment on above: Performed By: #### L 500.2500 #### [facility] [address] [place], [address] CO2 (BldV) [Moles/Vol]Ordere d By: Yony Solis on 01-26-2025 CO2 [Moles/Vol] 18 mmol/L Low 23-33 [facility] Chest PA and Lateralon 01-26 Chest PA and Lateral [facility] Imaging Services [address] [place] [address] Chest PA and Lateral MR#: [id number] Acct: [id number] Name: ITALO BURGOS Rep #: [id number] : 1970 M 54 From: Gen Jack MD PCP: Dr. Zaida Gaston MD Status: [facility] ER Study: Chest PA and Lateral Date of Exam: 01/26/25 Exam# [id number] Ordering Dr: Yony Solis DO PROCEDURE: CHEST PA AND LATERAL 01/26/2025 REASON FOR EXAM: COUGH TECHNIQUE: Frontal and lateral views of the chest. COMPARISON: None. FINDINGS: Hardware: None. Heart: Heart size is mildly enlarged. Mediastinum: The mediastinal contour is unremarkable. Lungs: The lungs are clear. Bones: The bones are unremarkable. RAD/Chest PA and Lateral IMPRESSION: NO ACUTE FINDINGS. Reading Location: [place] [address] CC: Dr. Zaida Gaston MD; Dr. Yony Slois DO Dispersion Mixer: Signed Normal [facility] Emergency Department Summary on 01-26-2025 Emergency Department Summary [facility] Medical Records Department [address] [place] [address] Emergency Department Summary 01/26/25 MR#: [id number] Acct: [id number] Name: ITALO BURGOS Rep #: [id number] : 1970 54 From: Yony Underwood PCP: Dr. Zaida Gaston MD Status:DEP ER Location: ED HPI History of Present Illness Chief Complaint: Hyperglycemia Informant: patient Narrative Narrative: Brought in by EMS from the alf I day history weakness dizziness. He is [...] frequency increasing thirst. He is followed by [facility] transplant, he states he is taking his medications. He has been in the alf for 4 months. Blood glucose 583 by EMS. [facility] Medical History Congestive heart failure (CHF) [...] (LHC) ( 06/26/11) Atherosclerotic heart disease of [place] coronary artery without angina pectoris Essential hypertension [...] tablet,delayed 20 mg PO DAILY gerd 09/18/21 05/ History release (Protonix) prednisone 5 mg tablet [...] Kidney disease (more content not included)... Normal [facility] Eosinophil percentageOrdered By: ED PROVIDER on 01-26-2025 Eosinophils/100 WBC (Bld) 0.0 % Normal 0-5 [facility] Comment on above: Performed By: #### L 500.2500 #### [facility] [address] [place], [address] Erythrocyte distribution wid th ratioOrdered By: ED PROVIDER on 01-26-2025 Erythrocyte distribution width (RBC) [Ratio] 11.7 % Normal 11.6-14.6 [facility] Comment on above: Performed By: #### L 500.2500 #### [facility] [address] [place], [address] Erythrocyte distribution wid th standard deviationOrdered By: ED PROVIDER on 01-26-2025 Erythrocyte distribution width (RBC) [Ratio] 38.0 fl 35.1-43.9 [facility] Glucoseon 01-26-2025 Glucose [Mass/Vol] 699 mg/dL Invalid Interpretation Code 70-99 [facility] Comment on above: Result Comment: Crit ical Result(s) Called ACOLE at: 1949 by: SOUTH??Results read back by same. Performed By: #### L 500.2500, L100.0100 #### [facility] [address] [place], [address] Hemoglobin measurementOrdere d By: ED PROVIDER on 01-26-2025 Hemoglobin (Bld) [Mass/Vol] 12.9 g/dL Low 13.0-16.5 [facility] Comment on above: Performed By: #### L 500.2500 #### [facility] [address] [place], [address] Immature granulocytes/100 WB C Auto (Bld)Ordered By: ED PROVIDER on 01-26-2025 Immature granulocytes/100 WBC (Bld) 0.500 % 0.0-0.9 [facility] Comment on above: IG% - Immature Granu locytes (promyelocytes, myelocytes and metamyelocytes) > 1% indicates that a LEFT SHIFT is Present. Ketones Test strip Ql (U)Ord ered By: Yony Solis on 01-26-2025 Ketones Ql (U) Negative Negative [facility] Lipase measurementOrdered By : Yony Solis on 01-26-2025 Lipase [Catalytic activity/Vol] 48 U/L Normal 13-75 [facility] Comment on above: Please note:LIPASE r evised reference range effective 22. New Lipase methodology. Expected to produce lower values than the previous assay method. NEW Reference Range: 13 - 75 U/L Result Comment: Elise cruz note: LIPASE revised reference range effective 22. New Lipase methodology. Expected to produce lower values than the previous assay method. NEW Reference Range: 13 - 75 U/L Performed By: #### L 500.2500, L100.0100 #### [facility] [address] [place], [address] Liver Profileon 01-26-2025 ALK PHOS 120 U/L Normal 40-129 [facility] Comment on above: Order Comment: BMP D ONE AT 1600 Performed By: #### L 500.2500, L100.0100 #### [facility] [address] [place], [address] T PROT 5.7 g/dL Low 5.9-8.4 [facility] Comment on above: Order Comment: BMP D ONE AT 1600 Performed By: #### L 500.2500, L100.0100 #### [facility] [address] [place], [address] Liver ProfileOrdered By: Brien Solis on 01-26-2025 AST [Catalytic activity/Vol] 9 U/L Normal <=37 [facility] Comment on above: Order Comment: BMP D ONE AT 1600 Performed By: #### L 500.2500, L100.0100 #### [facility] [address] [place], [address] MCV (mean corpuscular volume ) determinationOrdered By: ED PROVIDER on 01-26-2025 MCV (RBC) [Entitic vol] 89.6 fL Normal 80-94 [facility] Comment on above: Performed By: #### L 500.2500 #### [facility] [address] [place], [place], [address] Mean corpuscular hemoglobin (MCH) determinationOrdered By: ED PROVIDER on 01-26-2025 MCH (RBC) [Entitic mass] 31.2 pg Normal 27.0-32.0 [facility] Comment on above: Performed By: #### L 500.2500 #### [facility] [address] [place], [address] Mean corpuscular hemoglobin concentration (MCHC) determinationOrdered By: ED PROVIDER on 01-26-2025 MCHC (RBC) [Mass/Vol] 34.8 g/dL Normal 32-36 [facility] Comment on above: Performed By: #### L 500.2500 #### [facility] [address] [place], [place], [address] Mean platelet volume determi nationOrdered By: ED PROVIDER on 01-26-2025 Platelet mean volume (Bld) [Entitic vol] 9.9 fL Normal 6.2-12.0 [facility] Comment on above: Performed By: #### L 500.2500 #### [facility] [address] [place], [address] Microscopic analysis of urin e for red blood cells (RBC)Ordered By: Yony Solis on 01-26-2025 Microscopic analysis of urine for red blood cells (RBC) 5-10 SEEN /hpf 0-5 [facility] Monocyte percentageOrdered B y: ED PROVIDER on 01-26-2025 Monocytes/100 WBC (Bld) 8.2 % Normal 0-10 [facility] Comment on above: Performed By: #### L 500.2500 #### [facility] [address] [place], [address] Mucus LM Ql (Urine sed)Order ed By: Yony Solis on 01-26-2025 Mucus Ql (Urine sed) 0 SEEN /hpf [facility] Neutrophil percentageOrdered By: ED PROVIDER on 01-26-2025 Neutrophils/100 WBC (Bld) 85.2 % High 47-70 [facility] Comment on above: Performed By: #### L 500.2500 #### [facility] [address], [address] Nitrite Test strip Ql (U)Ord ered By: Yony Solis on 01-26-2025 Nitrite Ql (U) Negative Negative [facility] No Panel InformationOrdered By: Yony Solis on 01-26-2025 Blood Gas Sample Site Not entered [facility] Blood Gas Specimen Type ANTHONY [facility] Oxygen Delivery Device Room Air [facility] ANTHONY [facility] Not entered [facility] Room Air [facility] 9 U/L <38 [facility] Nucleated red blood cell per centageOrdered By: ED PROVIDER on 01-26-2025 Nucleated RBC/100 WBC (Bld) [Ratio] 0 % 0-5 [facility] Platelet countOrdered By: ED PROVIDER on 01-26-2025 Platelets (Bld) [#/Vol] 168 10*3/uL Normal 150-450 [facility] Comment on above: Performed By: #### L 500.2500 #### [facility] [address] [facility] [place], [address] Protein Test strip Ql (U)Ord ered By: Yony Solis on 01-26-2025 Protein Ql (U) 30 mg/dl High Negative [facility] Serum globulin measurementOr dered By: Yony Solis on 01-26-2025 Globulin (S) [Mass/Vol] 2.7 g/dL Normal 2.2-4.2 [facility] Comment on above: Order Comment: BMP D ONE AT 1600 Performed By: #### L 500.2500, L100.0100 #### [facility] [address] [place], [place], [address] Serum or plasma alanine andrade otransferase (ALT) measurementOrdered By: Yony Solis on 01-26-2025 ALT [Catalytic activity/Vol] 12 U/L Normal <=46 [facility] Comment on above: Order Comment: BMP D ONE AT 1600 Performed By: #### L 500.2500, L100.0100 #### [facility] [address] [place], [address] Serum or plasma albumin regi urement (mass/volume)Ordered By: Yony Solis on 01-26-2025 Albumin [Mass/Vol] 3.0 g/dL Low 3.5-5.0 [facility] Comment on above: Order Comment: BMP D ONE AT 1600 Performed By: #### L 500.2499, L100.0100 #### [facility] [address] [place], [address] Serum or plasma alkaline cindi sphatase measurementOrdered By: Yony Solis on 01-26-2025 ALP [Catalytic activity/Vol] 120 U/L 40-129 [facility] Squamous epithelial cells de tection in urine sediment by light microscopyOrdered By: Yony Solis on 01-26-2025 Epithelial cells.squamous LM Ql (Urine sed) 0 SEEN /hpf 0-5 [facility] Total proteinOrdered By: Brien Solis on 01-26-2025 Protein [Mass/Vol] 5.7 g/dL Low 5.9-8.4 [facility] Urinalysis, Completeon 01-26 AMORPHOUS 1+ Normal [facility] Comment on above: Order Comment: CLEAN CATCH Performed By: #### L 500.2500, L100.0100 #### [facility] [address] [place], [address] RBC 5-10 SEEN Normal 0-5 [facility] Comment on above: Order Comment: CLEAN CATCH Performed By: #### L 500.2500, L100.0100 #### [facility] [address] [place], [address] WBC 10-25 SEEN Normal 0-5 [facility] Comment on above: Order Comment: CLEAN CATCH Performed By: #### L 500.2500, L100.0100 #### [facility] [address] [place], [address] BACTERIA 0 SEEN Normal None Seen [facility] Comment on above: Order Comment: CLEAN CATCH Performed By: #### L 500.2500, L100.0100 #### [facility] [address] [place], [address] EPI,SQUAMOUS 0 SEEN Normal 0-5 [facility] Comment on above: Order Comment: CLEAN CATCH Performed By: #### L 500.2500, L100.0100 #### [facility] [address] [place], [address] Mucus Ql (Urine sed) 0 SEEN Normal [facility] Comment on above: Order Comment: CLEAN CATCH Performed By: #### L 500.2500, L100.0100 #### [facility] [address] [place], [address] Urine clarityOrdered By: Brien Solis on 01-26-2025 Clarity (U) Sl. Cloudy Clear [facility] Urine color determinationOrd ered By: Yony Solis on 01-26-2025 Color (U) Yellow Yellow [facility] Urine cultureOrdered By: Brien Solis on 01-26-2025 Bacteria identified Cx Nom (U) Culture exhibits no growth. [facility] Urine glucose detectionOrder ed By: Yony Solis on 01-26-2025 Glucose Ql (U) 1000 mg/dl High Normal [facility] Urine leukocyte esterase det ection by dipstickOrdered By: Yony Solis on 01-26-2025 Leukocyte esterase Test strip Ql (U) 25 /ul High Negative [facility] Urine pHOrdered By: Yony Solis on 01-26-2025 pH (U) 6.0 [pH] 5.0 - 8.0 [facility] Urine sediment bacteria coun t by microscopy (number/high power field)Ordered By: Yony Solis on 01-26-2025 Bacteria LM.HPF (Urine sed) [#/Area] 0 /[HPF] None Seen [facility] Urine specific gravity measu rementOrdered By: Yony Solis on 01-26-2025 Specific gravity (U) [Rel density] 1.015 1.002-1.030 [facility] Urine urobilinogen measureme ntOrdered By: Yony Solis on 01-26-2025 Urobilinogen Ql (U) Normal mg/dl Normal [facility] Venous Blood Gason Blood Gas Type ATNHONY Normal [facility] Comment on above: Performed By: #### L 500.2500, L100.0100 #### [facility] [address] [place], [address] CO2 [Moles/Vol] 18 mmol/L Low 23-33 [facility] Comment on above: Performed By: #### L 500.2500, L100.0100 #### [facility] [address] [place], [address] HCO3 (Bld) [Moles/Vol] 17 mmol/L Low 22-26 [facility] Comment on above: Performed By: #### L 500.2500, L100.0100 #### [facility] [address] [place], [address] O2 Delivery Dev Room Air [facility] Comment on above: Performed By: #### L 500.2500, L100.0100 #### [facility] [address] [place], [address] SITE Not entered [facility] Comment on above: Performed By: #### L 500.2500, L100.0100 #### [facility] [address] [place], [address] VBG BE -10 mmol/L Low -1.0-3.5 [facility] Comment on above: Performed By: #### L 500.2500, L100.0100 #### [facility] [address] [place], [address] VBG pCO2 36.2 mmHg Low 41-51 [facility] Comment on above: Performed By: #### L 500.2500, L100.0100 #### [facility] [address] [place], [address] VBG pH 7.27 Low 7.32-7.42 [facility] Comment on above: Performed By: #### L 500.2500, L100.0100 #### [facility] [address] [place], [address] VBG PO2 35 mmHg Normal 25-40 [facility] Comment on above: Performed By: #### L 500.2500, L100.0100 #### [facility] [address] [place], [address] VBG SO2 61 Normal 50-70 [facility] Comment on above: Performed By: #### L 500.2500, L100.0100 #### [facility] [address] [place], [address] Venous blood base excess nicki surementOrdered By: Yony Solis on 01-26-2025 Base excess Calc (BldV) [Moles/Vol] -10 mmol/L Low -1.0-3.5 [facility] Venous blood bicarbonate nicki surementOrdered By: Yony Solis on 01-26-2025 HCO3 (Bld) [Moles/Vol] 17 mmol/L Low 22-26 [facility] Venous blood oxygen saturati on measurementOrdered By: Yony Solis on 01-26-2025 Oxygen saturation in Blood 61 % 50-70 [facility] Venous blood pH measurementO rdered By: Yony Solis on 01-26-2025 pH (BldV) 7.27 [pH] Low 7.32-7.42 [facility] Venous blood partial pressur e of carbon dioxide measurementOrdered By: Yony Solis on 01-26-2025 CO2 (BldV) [Partial pressure] 36.2 mm[Hg] Low 41-51 [facility] Venous blood partial pressur e of oxygen measurementOrdered By: Yony Solis on 01-26-2025 Oxygen (BldV) [Partial pressure] 35 mm[Hg] 25-40 [facility] White blood cell (WBC) count Ordered By: ED PROVIDER on 01-26-2025 WBC (Bld) [#/Vol] 9.5 10*3/uL Normal 4.4-11.0 [facility] Comment on above: Performed By: #### L 500.2500 #### [facility] [address] [place], [place], [address] White blood cell countOrdere d By: Yony Solis on 01-26-2025 White blood cell count 10-25 SEEN /hpf 0-5 [facility] 25(OH)D3 SerPl-mCncon 2024 25-hydroxyvitamin D3 [Mass/Vol] 16.7 ng/mL Low 31.0-80.0 [facility] Comment on above: Order Comment: Speci men Type: SWAB Ordering Facility: [facility] Address: [address] [place] [address] Result Comment: Clas sification of 25 [place] Vitamin D status: Deficiency/Insufficiency: < or = 30 ng/ml. Sufficiency/Optimal Levels: 31-80 ng/mL Toxicity: > 100 ng/mL. Test performed by chemiluminescent immunoassay. Performed By: #### S APCR #### [facility] CLIA [id number] [address] [place] [address] [place] ALBUMIN/CREATININE RATIO, UR INEon 01-01-2025 Albumin DL <= 20 mg/L (U) [Mass/Vol] 18.3 mg/L Normal [facility] Comment on above: Order Comment: Speci men Type: BLOOD SPECIMEN Ordering Facility: [facility] Address: [address] [place] [address] Performed By: #### 1 1253-2 #### [facility] CLIA [id number] [address] [place] [address] [place] Albumin/Creatinine (U) [Mass ratio] 42 mg/g High <30 [facility] Comment on above: Order Comment: Speci men Type: BLOOD SPECIMEN Ordering Facility: [facility] Address: [address] [place] [address] Result Comment: Adul t Male and Female Nephrotic Criteria: <30 mg/g is considered normal to mildly increased 30-300 mg/g is considered moderately increased >300 mg/g is considered severely increased KDIGO. (2013). KDIGO 2012 Clinical Practice Guideline for the Evaluation and Management of Chronic Kidney Disease. Official Journal of the International Society of Nephrology, 3(1), 1-150. Performed By: #### 1 1253-2 #### [facility] CLIA [id number] [address] [place] [address] [place] Creatinine (U) [Mass/Vol] 43.4 mg/dL Normal 20.0-300.0 [facility] Comment on above: Order Comment: Speci men Type: BLOOD SPECIMEN Ordering Facility: [facility] Address: [address] [place] [address] Performed By: #### 1 1253-2 #### [facility] CLIA [id number] [address] [place] [address] [place] CBC W Auto Differential pane l (Bld)on 01-01-2025 Basophils (Bld) [#/Vol] 10*3/uL Normal <0.11 [facility] Comment on above: Order Comment: Speci men Type: SWAB Ordering Facility: [facility] Address: [address] [place] [address] Performed By: #### S APCR #### [facility] CLIA [id number] [address] [place] [address] [place] Basophils/100 WBC (Bld) 0.3 % Normal [facility] Comment on above: Order Comment: Speci men Type: SWAB Ordering Facility: [facility] Address: [address] [place] [address] Performed By: #### S APCR #### [facility] CLIA [id number] [address] [id number] [address] [place] Differential cell count method Nom (Bld) Auto Normal [facility] Comment on above: Order Comment: Speci men Type: SWAB Ordering Facility: [facility] Address: [address] [place] [address] Performed By: #### S APCR #### [facility] CLIA [id number] [address] [place] [address] [place] Eosinophils (Bld) [#/Vol] 0.04 10*3/uL Normal <0.46 [facility] Comment on above: Order Comment: Speci men Type: SWAB Ordering Facility: [facility] Address: [address] [place] [address] Performed By: #### S APCR #### [facility] CLIA [id number] [address] [place] [address] [place] Eosinophils/100 WBC (Bld) 0.7 % Normal [facility] Comment on above: Order Comment: Speci men Type: SWAB Ordering Facility: [facility] Address: [address] [place] [address] Performed By: #### S APCR #### [facility] CLIA [id number] [address] [place] [address] [place] Erythrocyte distribution width (RBC) [Ratio] 11.5 % Normal 11.5-15.0 [facility] Comment on above: Order Comment: Speci men Type: SWAB Ordering Facility: [facility] Address: [address] [place] [address] Performed By: #### S APCR #### [facility] CLIA [id number] [address] [place] [address] [place] Hematocrit (Bld) [Volume fraction] 46.6 % Normal 39.0-51.0 [facility] Comment on above: Order Comment: Speci men Type: SWAB Ordering Facility: [facility] Address: [address] [place] [address] Performed By: #### S APCR #### [facility] CLIA [id number] [address] [place] [address] [place] Hemoglobin (Bld) [Mass/Vol] 16.1 g/dL Normal 13.0-17.0 [facility] Comment on above: Order Comment: Speci men Type: SWAB Ordering Facility: [facility] Address: [address] [place] [address] Performed By: #### S APCR #### [facility] CLIA [id number] [address] [place] [address] [place] Immature granulocytes (Bld) [#/Vol] 0.03 10*3/uL Normal <0.10 [facility] Comment on above: Order Comment: Speci men Type: SWAB Ordering Facility: [facility] Address: [address] [place] [address] Performed By: #### S APCR #### [facility] CLIA [id number] [address] [place] [address] [place] Immature granulocytes/100 WBC (Bld) 0.5 % Normal [facility] Comment on above: Order Comment: Speci men Type: SWAB Ordering Facility: [facility] Address: [address] [place] [address] Performed By: #### S APCR #### [facility] CLIA [id number] [address] [place] [address] [place] Lymphocytes (Bld) [#/Vol] 1.38 10*3/uL Normal 1.00-4.00 [facility] Comment on above: Order Comment: Speci men Type: SWAB Ordering Facility: [facility] Address: [address] [place] [address] Performed By: #### S APCR #### [facility] CLIA [id number] [address] [place] [address] [place] Lymphocytes/100 WBC (Bld) 23.0 % Normal [facility] Comment on above: Order Comment: Speci men Type: SWAB Ordering Facility: [facility] Address: [address] [place] [address] Performed By: #### S APCR #### [facility] CLIA [id number] [address] [place] [address] [place] MCH (RBC) [Entitic mass] 31.0 pg Normal 26.0-34.0 [facility] Comment on above: Order Comment: Speci men Type: SWAB Ordering Facility: [facility] Address: [address] [place] [address] Performed By: #### S APCR #### [facility] CLIA [id number] [address] [place] [address] [place] MCHC (RBC) [Mass/Vol] 34.5 g/dL Normal 30.5-36.0 [facility] Comment on above: Order Comment: Speci men Type: SWAB Ordering Facility: [facility] Address: [address] [place] [address] Performed By: #### S APCR #### [facility] CLIA [id number] [address] [place] [address] [place] MCV (RBC) [Entitic vol] 89.6 fL Normal 80.0-100.0 [facility] Comment on above: Order Comment: Speci men Type: SWAB Ordering Facility: [facility] Address: [address] [place] [address] Performed By: #### S APCR #### [facility] CLIA [id number] [address] [place] [address] [place] Monocytes (Bld) [#/Vol] 0.46 10*3/uL Normal <0.87 [facility] Comment on above: Order Comment: Speci men Type: SWAB Ordering Facility: [facility] Address: [address] [place] [address] Performed By: #### S APCR #### [facility] CLIA [id number] [address] [place] [address] [place] Monocytes/100 WBC (Bld) 7.7 % Normal [facility] Comment on above: Order Comment: Speci men Type: SWAB Ordering Facility: [facility] Address: [address] [place] [address] Performed By: #### S APCR #### [facility] CLIA [id number] [address] [place] [address] [place] Neutrophils (Bld) [#/Vol] 4.06 10*3/uL Normal 1.45-7.50 [facility] Comment on above: Order Comment: Speci men Type: SWAB Ordering Facility: [facility] Address: [address] [place] [address] Performed By: #### S APCR #### [facility] CLIA [id number] [address] [place] [address] [place] Neutrophils/100 WBC (Bld) 67.8 % Normal [facility] Comment on above: Order Comment: Speci men Type: SWAB Ordering Facility: [facility] Address: [address] [place] [address] Performed By: #### S APCR #### [facility] CLIA [id number] [address] [place] [address] [place] Nucleated RBC (Bld) [#/Vol] 10*3/uL Normal <0.01 [facility] Comment on above: Order Comment: Speci men Type: SWAB Ordering Facility: [facility] Address: [address] [place] [address] Performed By: #### S APCR #### [facility] CLIA [id number] [address] [place] [address] [place] Nucleated RBC/100 WBC (Bld) [Ratio] 0.0 /100 WBC Normal [facility] Comment on above: Order Comment: Speci men Type: SWAB Ordering Facility: [facility] Address: [address] [place] [address] Performed By: #### S APCR #### [facility] CLIA [id number] [address] [place] [address] [place] Platelet mean volume (Bld) [Entitic vol] 10.3 fL Normal 9.0-12.7 [facility] Comment on above: Order Comment: Speci men Type: SWAB Ordering Facility: [facility] Address: [address] [place] [address] Performed By: #### S APCR #### [facility] CLIA [id number] [address] [place] [address] [place] Platelets (Bld) [#/Vol] 168 10*3/uL Normal 150-400 [facility] Comment on above: Order Comment: Speci men Type: SWAB Ordering Facility: [facility] Address: [address] [place] [address] Performed By: #### S APCR #### [facility] CLIA [id number] [address] [place] [address] [place] RBC (Bld) [#/Vol] 5.20 10*6/uL Normal 4.20-6.00 [facility] Comment on above: Order Comment: Speci men Type: SWAB Ordering Facility: [facility] Address: [address] [place] [address] Performed By: #### S APCR #### [facility] CLIA [id number] [address] [place] [address] [place] WBC (Bld) [#/Vol] 5.99 10*3/uL Normal 3.70-11.00 [facility] Comment on above: Order Comment: Speci men Type: SWAB Ordering Facility: [facility] Address: [address] [place] [address] Performed By: #### S APCR #### [facility] CLIA [id number] [address] [place] [address] [place] Comprehensive metabolic 2000 panelon 01-01-2025 Albumin [Mass/Vol] 4.0 g/dL Normal 3.9-4.9 [facility] Comment on above: Order Comment: Speci men Type: BLOOD SPECIMEN Ordering Facility: [facility] Address: [address] [place] [address] Performed By: #### 1 1253-2 #### [facility] CLIA [id number] [address] [place] [address] [place] ALP [Catalytic activity/Vol] 145 U/L High 38-113 [facility] Comment on above: Order Comment: Speci men Type: BLOOD SPECIMEN Ordering Facility: [facility] Address: [address] [place] [address] Performed By: #### 1 1253-2 #### [facility] CLIA [id number] [address] [place] [address] [place] ALT [Catalytic activity/Vol] 34 U/L Normal 10-54 [facility] Comment on above: Order Comment: Speci men Type: BLOOD SPECIMEN Ordering Facility: [facility] Address: [address] [place] [address] Performed By: #### 1 1253-2 #### [facility] CLIA [id number] [address] [place] [address] [place] Anion gap [Moles/Vol] 14 mmol/L Normal 8-15 [facility] Comment on above: Order Comment: Speci men Type: BLOOD SPECIMEN Ordering Facility: [facility] Address: [address] [place] [address] Performed By: #### 1 1253-2 #### [facility] CLIA [id number] [address] [place] [address] [place] AST [Catalytic activity/Vol] 20 U/L Normal 14-40 [facility] Comment on above: Order Comment: Speci men Type: BLOOD SPECIMEN Ordering Facility: [facility] Address: [address] [place] [address] Performed By: #### 1 1253-2 #### [facility] CLIA [id number] [address] [place], [place] [id number] [place] Bilirubin [Mass/Vol] 0.5 mg/dL Normal 0.2-1.3 [facility] Comment on above: Order Comment: Speci men Type: BLOOD SPECIMEN Ordering Facility: [facility] Address: [address] [place] [address] Performed By: #### 1 1253-2 #### [facility] CLIA [id number] [address] [place] [address] [place] Calcium [Mass/Vol] 9.6 mg/dL Normal 8.5-10.2 [facility] Comment on above: Order Comment: Speci men Type: BLOOD SPECIMEN Ordering Facility: [facility] Address: [address] [place] [address] Performed By: #### 1 1253-2 #### [facility] CLIA [id number] [address] [place] [address] [place] Chloride [Moles/Vol] 96 mmol/L Low 98-107 [facility] Comment on above: Order Comment: Speci men Type: BLOOD SPECIMEN Ordering Facility: [facility] Address: [address] [place] [address] Performed By: #### 1 1253-2 #### [facility] CLIA [id number] [address] [place], [place] [id number] [place] CO2 [Moles/Vol] 21 mmol/L Low 22-30 [facility] Comment on above: Order Comment: Speci men Type: BLOOD SPECIMEN Ordering Facility: [facility] Address: [address] [place], [place] [id number] Performed By: #### 1 1253-2 #### [facility] CLIA [id number] [address] [place], [place] [address] [place] Creatinine [Mass/Vol] 1.59 mg/dL High 0.73-1.22 [facility] Comment on above: Order Comment: Gabriel martin Type: BLOOD SPECIMEN Ordering Facility: [facility] Address: [address] [place] [address] Performed By: #### 1 1253-2 #### [facility] CLIA [id number] [address] [place] [address] [place] Creatinine and Glomerular filtration rate.predicted panel (S/P/Bld) 51 mL/min/1.73m??? Low >=60 [facility] Comment on above: Order Comment: Gabriel martin Type: BLOOD SPECIMEN Ordering Facility: [facility] Address: [address] [place] [address] Result Comment: Candace mated Glomerular Filtration Rate [...] GFR. Performed By: #### 1 1253-2 #### [facility] CLIA [id number] [address] [place] [address] [place] Glucose [Mass/Vol] 488 mg/dL High 74-99 [facility] Comment on above: Order Comment: Gabriel martin Type: BLOOD SPECIMEN Ordering Facility: [facility] Address: [address] [place] [address] Result Comment: The [place] Diabetes Association (ADA) provides guidance for cutoff [...] Standards of Medical Care in Diabetes 2016, [place] [employer]. Diabetes Care. 2016.39(Suppl 1). Performed By: #### 1 1253-2 #### [facility] CLIA [id number] [address] [place] [address] [place] Potassium [Moles/Vol] 5.0 mmol/L Normal 3.7-5.1 [facility] Comment on above: Order Comment: Speci men Type: BLOOD SPECIMEN Ordering Facility: [facility] Address: [address] [place] [address] Performed By: #### 1 1253-2 #### [facility] CLIA [id number] [address] [place] [address] [place] Protein [Mass/Vol] 6.5 g/dL Normal 6.3-8.0 [facility] Comment on above: Order Comment: Speci men Type: BLOOD SPECIMEN Ordering Facility: [facility] Address: [address] [place] [address] Performed By: #### 1 1253-2 #### [facility] CLIA [id number] [address] [place] [address] [place] Sodium [Moles/Vol] 131 mmol/L Low 136-144 [facility] Comment on above: Order Comment: Speci men Type: BLOOD SPECIMEN Ordering Facility: [facility] Address: [address] [place] [address] Performed By: #### 1 1253-2 #### [facility] CLIA [id number] [address] [place] [address] [place] Urea nitrogen [Mass/Vol] 25 mg/dL High 9-24 [facility] Comment on above: Order Comment: Speci men Type: BLOOD SPECIMEN Ordering Facility: [facility] Address: [address] [place] [address] Performed By: #### 1 1253-2 #### [facility] CLIA [id number] [address] [place] [address] [place] HbA1c (Bld)on 01-01-2025 Average glucose Estimated from glycated hemoglobin (Bld) [Mass/Vol] 260 mg/dL Normal [facility] Comment on above: Order Comment: Gabriel martin Type: BLOOD SPECIMEN Ordering Facility: [facility] Address: [address] [place] [address] Result Comment: eAG: (Estimated average glucose) is a calculated value from HgbA1c and is parts counter representative of the average blood glucose level in the last 2-3 month period. Performed By: #### 1 1253-2 #### [facility] CLIA [id number] [address] [place] [address] STATES OF [facility] HbA1c (Bld) [Mass fraction] 10.7 % High 4.3-5.6 [facility] Comment on above: Order Comment: Gabriel martin Type: BLOOD SPECIMEN Ordering Facility: [facility] Address: [address] [place] [address] Result Comment: [place] Diabetes Association guidelines indicate that patients with HgbA1c in the range 5.7-6.4% are at increased risk for development of diabetes, and intervention by lifestyle modification may be beneficial. HgbA1c greater or equal to 6.5% is considered diagnostic of diabetes. Performed By: #### 1 1253-2 #### [facility] CLIA [id number] [address] [place] [address] [place] Lipid 1996 panelon 5 Cholesterol [Mass/Vol] 202 mg/dL High <200 [facility] Comment on above: Order Comment: Gabriel martin Type: BLOOD SPECIMEN Ordering Facility: [facility] Address: [address] [place] [address] Result Comment: <200 mg/dL, Desirable 200-239 mg/dL, Borderline high >239 mg/dL, High Performed By: #### 1 1253-2 #### [facility] CLIA [id number] [address] [place] [address] [place] Cholesterol in HDL [Mass/Vol] 48 mg/dL Normal >39 [facility] Comment on above: Order Comment: Gabriel martin Type: BLOOD SPECIMEN Ordering Facility: [facility] Address: [address] [place] [address] Result Comment: 40-5 9 mg/dL, Acceptable >59 mg/dL, High: Negative risk factor for coronary heart disease <40 mg/dL, Low: Positive risk factor for coronary heart disease Performed By: #### 1 1253-2 #### [facility] CLIA [id number] [address] [place] [address] [place] Cholesterol in LDL [Mass/Vol] 120 mg/dL High <100 [facility] Comment on above: Order Comment: Gabriel martin Type: BLOOD SPECIMEN Ordering Facility: [facility] Address: [address] [place] [address] Result Comment: <100 mg/dL, Optimal 100-129 mg/dL, Near optimal/above optimal 130-159 mg/dL, Borderline high 160-189 mg/dL, High >189 mg/dL, Very high Secondary prevention optimal LDL Cholesterol levels are recommended to be <70 mg/dL LDL cholesterol is calculated using the Barnard-NIH equation. Performed By: #### 1 1253-2 #### [facility] [place] [id number] [address] [place] [address] STATES OF [facility] Cholesterol in LDL/Cholesterol in HDL [Mass ratio] 2.50 {ratio} Normal <2.54 [facility] Comment on above: Order Comment: Gabriel mario Type: BLOOD SPECIMEN Ordering Facility: [facility] Address: [address] [place] [address] Result Comment: Claudine lopez: 1. National Cholesterol Education Program ATP III Guideline At-A-Glance Quick Desk Reference: National Heart, Lung, and Blood [place]. National Institutes of Health. 2001: NIH Publication No. 01-3305. 2. An International Atherosclerosis Society position paper: global recommendations for the management of dyslipidemia: executive summary, Atherosclerosis. 2014: 232(2):410-413. Performed By: #### 1 1253-2 #### [facility] CLIA [id number] [address] [place] [address] [place] Cholesterol in VLDL [Mass/Vol] 33 mg/dL High <30 [facility] Comment on above: Order Comment: Speci men Type: BLOOD SPECIMEN Ordering Facility: [facility] Address: [address] [place] [address] Performed By: #### 1 1253-2 #### [facility] CLIA [id number] [address] [place] [address] [place] Cholesterol non HDL [Mass/Vol] 154 mg/dL High <130 [facility] Comment on above: Order Comment: Speci men Type: BLOOD SPECIMEN Ordering Facility: [facility] Address: [address] [place] [address] Result Comment: <130 mg/dL, Optimal 130-159 mg/dL, Near optimal/above optimal 160-189 mg/dL, Borderline high 190-219 mg/dL, High >219 mg/dL, Very high Secondary prevention optimal non HDL Cholesterol levels are recommended to be <100 mg/dL Performed By: #### 1 1253-2 #### [facility] CLIA [id number] [address] [place] [address] [place] Cholesterol.total/Choles terol in HDL [Mass ratio] 4.21 {ratio} Normal <5.10 [facility] Comment on above: Order Comment: Speci men Type: BLOOD SPECIMEN Ordering Facility: [facility] Address: [address] [place] [address] Performed By: #### 1 1253-2 #### [facility] CLIA [id number] [address] [place] [address] [place] FASTING TIME 14 hrs Normal [facility] Comment on above: Order Comment: Speci men Type: BLOOD SPECIMEN Ordering Facility: [facility] Address: [address] [place] [address] Performed By: #### 1 1253-2 #### [facility] CLIA [id number] [address] [place] [address] [place] Triglyceride [Mass/Vol] 192 mg/dL High <150 [facility] Comment on above: Order Comment: Speci men Type: BLOOD SPECIMEN Ordering Facility: [facility] Address: [address] [place] [address] Result Comment: <150 mg/dL, Normal 150-199 mg/dL, Borderline high 200-499 mg/dL, High >499 mg/dL, Very high Performed By: #### 1 1253-2 #### [facility] CLIA [id number] [address] [place] [address] [place] TSH SerPl-aCncon 01-01-2025 TSH Qn 0.779 m[IU]/L Normal 0.270-4.200 [facility] Comment on above: Order Comment: Speci men Type: BLOOD SPECIMEN Ordering Facility: [facility] Address: [address] [place] [address] Performed By: #### 1 1253-2 #### [facility] IA [id number] [address] [place] [address] [place] CNOVon 12-30-2024 CNOV Office Visit (INTMWS ) ITALO BURGOS ([id number]) 1970 M Date Time Provider Department 12/30/24 4:20 PM DELIA KAUFMAN During your visit today, we recorded the following information about you: Pulse Respiration Blood pressure Weight 94/minute 16/minute 118/68 79.8 kg 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 APRN.DOUGH MAKER 12/30/2024 5:44 PM Signed CC: Patient presents [...] [facility] and has to be seen to be [...] over a year ago. Needs to call [facility] to schedule. 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 Depression Detached retina DM type 2, goal HbA1c < 7% ([facility]) Erectile dysfunction, unspecified erectile dysfunction type ESRD [...] SHUNT FOR DIALYSIS Right 08/08/2018 Done at [facility] by Satish Phan MD CHOLECYSTECTOMY 1998 Cholecystectomy COLONOSCOPY 12/04/2018 COLONOSCOPY SCREENING 04/01/2024 CYSTO W/COMPLEX REMOVAL STONE AND STENT 1999 EGD 12/04/2018 EGD W/O [facility] SPEC VARICIES INJ 04/01/2024 PAST [...] cap in pm Blood-Glucose Meter,Continuous (DEXCOM G6 HEAVY MACHINERY OPERATOR) misc 1 Each continuous. Blood-Glucose Sensor (DEXCOM [...] MUST g (more content not included)... Normal [facility] Urine Cultureon 11-21-2024 URC Below infection leve l. Mixed Gram Positive Organisms Priddy Count 1000-10,000 MIXC Mixed contaminants. Submit a new specimen if indicated. Normal [facility] Comment on above: Performed By: #### L 501.080 #### [facility] [address] [place], [address] 12 Lead EKGon 11-19-2024 12 Lead EKG [facility] Cardiovascular Services [address] [place] [address] 12 Lead EKG 11/19/24 1417 MR#: [id number] Acct: [id number] Name: ITALO BURGOS Rep #: [id number] : 1970 53 From: Symone Albaardo MD Attending Dr: Status: DEP ER Ordering [...] Abnormal ECG Confirmed by NARGIS NORTON, NICOLLE ([id number]), news videotape editor JEANETTE MARQUEZ ([id number]) on 11/23/2024 10:57:26 AM Referred By: Yony Solis Confirmed By: NICOLLE ALBARADO MD 11/23/24 1057 Date Symone Albarado MD CC: Dr. Zaida Gaston MD; Dr. Yony Solis, DO Signed Normal [facility] Absolute lymphocyte countOrd ered By: Yony Solis on 11-19-2024 Lymphocytes Auto (Unsp spec) [#/Vol] 1.05 10*3/uL 0.83-4.51 [facility] Absolute neutrophil countOrd ered By: Yony Solis on 11-19-2024 Neutrophils (Bld) [#/Vol] 6.9 10*3/uL 2.0-7.7 [facility] Anion gap in Serum or Plasma Ordered By: Yony Solis on 11-19-2024 Anion gap [Moles/Vol] 16 mmol/L High 5-15 [facility] Automated lymphocyte count a s percentage of total leukocytesOrdered By: Yony Solis on 11-19-2024 Lymphocytes/100 WBC Auto (Unsp spec) 11.9 % Low 19-41 [facility] BUN/creatinine ratioOrdered By: Yony Solis on 11-19-2024 Urea nitrogen/Creatinine [Mass ratio] 15.5 mg/mg 10-20 [facility] Basic Metabolic Profile (BMP )on 11-19-2024 BUN/CRE 15.5 RATIO Normal 10-20 [facility] Comment on above: Performed By: #### L 500.2500 #### [facility] [address] [facility] [address] Calcium [Mass/Vol] 10.1 mg/dL Normal 7.6-11.0 [facility] Comment on above: Performed By: #### L 500.2500 #### [facility] [address] [place], [address] Chloride [Moles/Vol] 104 mmol/L Normal 98-108 [facility] Comment on above: Performed By: #### L 500.2500 #### [facility] [address] [place], [address] CO2 [Moles/Vol] 19.3 mmol/L Low 21.0-32.0 [facility] Comment on above: Performed By: #### L 500.2500 #### [facility] [address] [place], [address] Creatinine [Mass/Vol] 2.11 mg/dL High 0.70-1.20 [facility] Comment on above: Performed By: #### L 500.2500 #### [facility] [address] [place], [address] ECRCL 42.01 ml/min Low 50-250 [facility] Comment on above: Performed By: #### L 500.2500 #### [facility] [address] [place], [address] GAP 16 High 5-15 [facility] Comment on above: Performed By: #### L 500.2500 #### [facility] [address] [place], [address] GFR/1.73 sq M.predicted among non-blacks MDRD (S/P/Bld) [Vol rate/Area] 36 mL/min/{1.73_m2} Low >60 [facility] Comment on above: Result Comment: mL/m in/1.73m2 CKD-EPI Creatinine Equation (2020) Performed By: #### L 500.2500 #### [facility] [address] [place], [address] Glucose [Mass/Vol] 279 mg/dL High 70-99 [facility] Comment on above: Performed By: #### L 500.2500 #### [facility] [address] [place], [address] Potassium [Moles/Vol] 4.9 mmol/L Normal 3.3-5.1 [facility] Comment on above: Performed By: #### L 500.2500 #### [facility] [address] [place], [address] Sodium [Moles/Vol] 139 mmol/L Normal 133-145 [facility] Comment on above: Performed By: #### L 500.2500 #### [facility] [address] [place], [address] Urea nitrogen [Mass/Vol] 33 mg/dL High 4-19 [facility] Comment on above: Performed By: #### L 500.2500 #### [facility] [address] [place], [address] Basophil percentageOrdered B y: Yony Solis on 11-19-2024 Basophils/100 WBC (Bld) 0.5 % 0-1 [facility] Bilirubin Test strip Ql (U)O rdered By: Yony Solis on 11-19-2024 Bilirubin Ql (U) Negative Negative [facility] CBC W/Diff, Automatedon 11-07-2024 Absolute Lymph 1.05 X10 3/uL Normal 0.83-4.51 [facility] Comment on above: Performed By: #### L 500.2500 #### [facility] [address] [place], [address] Absolute Neut 6.9 X10 3/uL Normal 2.0-7.7 [facility] Comment on above: Performed By: #### L 500.2500 #### [facility] [address] [place], [address] Basophils/100 WBC (Bld) 0.5 % Normal 0-1 [facility] Comment on above: Performed By: #### L 500.2500 #### [facility] [address] [place], [address] Eosinophils/100 WBC (Bld) 0.2 % Normal 0-5 [facility] Comment on above: Performed By: #### L 500.2500 #### [facility] [address] [place], [address] Erythrocyte distribution width (RBC) [Ratio] 12.0 % Normal 11.6-14.6 [facility] Comment on above: Performed By: #### L 500.2500 #### [facility] [address] [place], [address] Hematocrit (Bld) [Volume fraction] 51.2 % Normal 40-54 [facility] Comment on above: Performed By: #### L 500.2500 #### [facility] [address] [place], [address] Hemoglobin (Bld) [Mass/Vol] 17.7 g/dL High 13.0-16.5 [facility] Comment on above: Performed By: #### L 500.2500 #### [facility] [address] [place], [address] IG% 0.300 Normal 0.0-0.9 [facility] Comment on above: Result Comment: IG% - Immature Granulocytes (promyelocytes, myelocytes and metamyelocytes) > 1% indicates that a LEFT SHIFT is Present. Performed By: #### L 500.2500 #### [facility] [address] [place], [address] Lymphocytes/100 WBC (Bld) 11.9 % Low 19-41 [facility] Comment on above: Performed By: #### L 500.2500 #### [facility] [address] [place], [address] MCH (RBC) [Entitic mass] 31.3 pg Normal 27.0-32.0 [facility] Comment on above: Performed By: #### L 500.2500 #### [facility] [address] [place], [address] MCHC (RBC) [Mass/Vol] 34.6 g/dL Normal 32-36 [facility] Comment on above: Performed By: #### L 500.2500 #### [facility] [address] [place], [address] MCV (RBC) [Entitic vol] 90.6 fL Normal 80-94 [facility] Comment on above: Performed By: #### L 500.2500 #### [facility] [address] [place], [address] Monocytes/100 WBC (Bld) 9.2 % Normal 0-10 [facility] Comment on above: Performed By: #### L 500.2500 #### [facility] [address] [place], [address] Neutrophils/100 WBC (Bld) 77.9 % High 47-70 [facility] Comment on above: Performed By: #### L 500.2500 #### [facility] [address] [place], [address] Nucleated RBC (Bld) [#/Vol] 0 10*3/uL Normal 0-5 [facility] Comment on above: Performed By: #### L 500.2500 #### [facility] [address] [place], [address] Platelet mean volume (Bld) [Entitic vol] 9.9 fL Normal 6.2-12.0 [facility] Comment on above: Performed By: #### L 500.2500 #### [facility] [address] [place], [address] Platelets (Bld) [#/Vol] 231 10*3/uL Normal 150-450 [facility] Comment on above: Performed By: #### L 500.2500 #### [facility] [address] [place], [address] RBC (Bld) [#/Vol] 5.65 10*6/uL Normal 4.6-6.2 [facility] Comment on above: Performed By: #### L 500.2500 #### [facility] [address] [place], [address] RDW SD 39.8 fl Normal 35.1-43.9 [facility] Comment on above: Performed By: #### L 500.2500 #### [facility] [address] [place], [place], [address] WBC (Bld) [#/Vol] 8.8 10*3/uL Normal 4.4-11.0 [facility] Comment on above: Performed By: #### L 500.2500 #### [facility] [address] [place], [address] Carbon dioxide, total [Moles /volume] in Central venous bloodOrdered By: Yony Solis on 11-19-2024 CO2 [Moles/Vol] 19.3 mmol/L Low 21.0-32.0 [facility] Chloride assayOrdered By: Aldair Solis on 11-19-2024 Chloride [Moles/Vol] 104 mmol/L 98-108 [facility] Emergency Department Summary on 11-19-2024 Emergency Department Summary [facility] Medical Records Department [address] [place] [address] Emergency Department Summary 11/19/24 MR#: [id number] Acct: [id number] Name: ITALO BURGOS Rep #: [id number] : 1970 53 From: Yony Underwood PCP: [...] ago on immunosuppressants. He is followed by [facility]. He has not had similar symptoms in [...] ([facility]) ( 06/26/11) Atherosclerotic heart disease of [place] coronary artery without angina pectoris Essential hypertension [...] of dialy (more content not included)... Normal [facility] Eosinophil percentageOrdered By: Yony Solis on 11-19-2024 Eosinophils/100 WBC (Bld) 0.2 % 0-5 [facility] Epithelial cells.squamous LM Ql (Urine sed)Ordered By: Yony Solis on 11-19-2024 Epithelial cells.squamous LM.HPF (Urine sed) [#/Area] 0 /[HPF] 0-5 [facility] Erythrocyte distribution wid th ratioOrdered By: Yony Solis on 11-19-2024 Erythrocyte distribution width (RBC) [Ratio] 12.0 % 11.6-14.6 [facility] Erythrocyte distribution wid th standard deviationOrdered By: Yony Solis on 11-19-2024 Erythrocyte distribution width (RBC) [Entitic vol] 39.8 fL 35.1-43.9 [facility] Erythrocyte distribution width (RBC) [Ratio] 39.8 fl 35.1-43.9 [facility] Estimation of creatinine minnie aranceOrdered By: Yony Solis on 11-19-2024 Estimated Creatinine Clearance Calc 42.01 ml/min Low 50-250 [facility] GFR/1.73 sq M.predicted pete g non-blacks MDRD (S/P/Bld) [Vol rate/Area]Ordered By: Yony Solis on 11-19-2024 Estimated GFR (MDRD) Non-Af Amer 36 Low >60 [facility] Comment on above: mL/min/1.73m2 CKD-EP I Creatinine Equation (2020) Glomerular filtration rate ( GFR) estimation/1.73 sq m using serum, plasma, or whole bOrdered By: Yony Solis on 11-19-2024 GFR/1.73 sq M.predicted among non-blacks MDRD (S/P/Bld) [Vol rate/Area] 36 mL/min/{1.73_m2} Low >60 [facility] Comment on above: mL/min/1.73m2 CKD-EP I Creatinine Equation (2020) Glucose Ql (U)Ordered By: Aldair Solis on 11-19-2024 Glucose (U) [Mass/Vol] 1000 mg/dL High Normal [facility] Hematocrit Auto (Bld) [Volum e fraction]Ordered By: Yony Solis on 11-19-2024 Hematocrit (Bld) [Volume fraction] 51.2 % 40-54 [facility] Hemoglobin measurementOrdere d By: Yony Solis on 11-19-2024 Hemoglobin (Bld) [Mass/Vol] 17.7 g/dL High 13.0-16.5 [facility] Hyaline casts LM.LPF (Urine sed) [#/Area]Ordered By: Yony Solis on 11-19-2024 Hyaline casts (Urine sed) [#/Area] 0 /[LPF] 0-5 [facility] Hyaline casts LM Ql (Urine sed) 0-5 SEEN /lpf 0-5 [facility] Immature granulocytes/100 WB C Auto (Bld)Ordered By: Yony Solis on 11-19-2024 Immature granulocytes/100 WBC (Bld) 0.300 % 0.0-0.9 [facility] Comment on above: IG% - Immature Granu locytes (promyelocytes, myelocytes and metamyelocytes) > 1% indicates that a LEFT SHIFT is Present. Ketones Test strip Ql (U)Ord ered By: Yony Solis on 11-19-2024 Ketones Ql (U) Negative Negative [facility] Lymphocytes Auto (Unsp spec) [#/Vol]Ordered By: Yony Solis on 11-19-2024 Lymphocytes (Bld) [#/Vol] 1.05 10*3/uL 0.83-4.51 [facility] Lymphocytes/100 WBC Auto (Un sp spec)Ordered By: Yony Solis on 11-19-2024 Lymphocytes/100 WBC (Bld) 11.9 % Low 19-41 [facility] MCV (mean corpuscular volume ) determinationOrdered By: Yony Solis on 11-19-2024 MCV (RBC) [Entitic vol] 90.6 fL 80-94 [facility] Mean corpuscular hemoglobin (MCH) determinationOrdered By: Yony Solis on 11-19-2024 MCH (RBC) [Entitic mass] 31.3 pg 27.0-32.0 [facility] Mean corpuscular hemoglobin concentration (MCHC) determinationOrdered By: Yony Solis on 11-19-2024 MCHC (RBC) [Mass/Vol] 34.6 g/dL 32-36 [facility] Mean platelet volume determi nationOrdered By: Yony Solis on 11-19-2024 Platelet mean volume (Bld) [Entitic vol] 9.9 fL 6.2-12.0 [facility] Microscopic analysis of urin e for red blood cells (RBC)Ordered By: Yony Solis on 11-19-2024 Microscopic analysis of urine for red blood cells (RBC) 10-25 SEEN /hpf 0-5 [facility] Urine RBC 10-25 SEEN /hpf 0-5 [facility] Monocyte percentageOrdered B y: Yony Solis on 11-19-2024 Monocytes/100 WBC (Bld) 9.2 % 0-10 [facility] Mucus LM Ql (Urine sed)Order ed By: Yony Solis on 11-19-2024 Mucus Ql (Urine sed) 0 SEEN /hpf [facility] Neutrophil percentageOrdered By: Yony Solis on 11-19-2024 Neutrophils/100 WBC (Bld) 77.9 % High 47-70 [facility] Nitrite Test strip Ql (U)Ord ered By: Yony Solis on 11-19-2024 Nitrite Ql (U) Negative Negative [facility] Nucleated red blood cell per centageOrdered By: Yony Solis on 11-19-2024 Nucleated RBC/100 WBC (Bld) [Ratio] 0 % 0-5 [facility] Platelet countOrdered By: Aldair Solis on 11-19-2024 Platelets (Bld) [#/Vol] 231 10*3/uL 150-450 [facility] Potassium (Unsp spec) [Mass/ Vol]Ordered By: Yony Solis on 11-19-2024 Potassium [Moles/Vol] 4.9 mmol/L 3.3-5.1 [facility] Potassium measurement (mass/ volume)Ordered By: Yony Solis on 11-19-2024 Potassium (Unsp spec) [Mass/Vol] 4.9 mmol/L 3.3-5.1 [facility] Protein Test strip Ql (U)Ord ered By: Yony Solis on 11-19-2024 Protein Ql (U) 30 mg/dl High Negative [facility] RBC Auto (Bld) [#/Vol]Ordere d By: Yony Solis on 11-19-2024 RBC (Bld) [#/Vol] 5.65 10*6/uL 4.6-6.2 [facility] Serum creatinine measurement (mass/volume)Ordered By: Yony Solis on 11-19-2024 Creatinine [Mass/Vol] 2.11 mg/dL High 0.70-1.20 [facility] Serum glucose measurement (m ass/volume)Ordered By: Yony Solis on 11-19-2024 Glucose [Mass/Vol] 279 mg/dL High 70-99 [facility] Serum or plasma calcium regi urement (mass/volume)Ordered By: Yony Solis on 11-19-2024 Calcium [Mass/Vol] 10.1 mg/dL 7.6-11.0 [facility] Serum or plasma urea nitroge n measurement (mass/volume)Ordered By: Yony Solis on 11-19-2024 Urea nitrogen [Mass/Vol] 33 mg/dL High 4-19 [facility] Sodium levelOrdered By: Yony Solis on 11-19-2024 Sodium [Moles/Vol] 139 mmol/L 133-145 [facility] Squamous epithelial cells de tection in urine sediment by light microscopyOrdered By: Yony Solis on 11-19-2024 Epithelial cells.squamous LM Ql (Urine sed) 0-5 SEEN /hpf 0-5 [facility] Urinalysis, Completeon 11-19 CAST,HYALINE 0-5 SEEN Normal 0-5 [facility] Comment on above: Order Comment: CLEAN CATCH Performed By: #### L 400.0001 #### [facility] [address] [place], [address] EPI,SQUAMOUS 0-5 SEEN Normal 0-5 [facility] Comment on above: Order Comment: CLEAN CATCH Performed By: #### L 400.0001 #### [facility] [address] [place], [address] RBC 10-25 SEEN Normal 0-5 [facility] Comment on above: Order Comment: CLEAN CATCH Performed By: #### L 400.0001 #### [facility] [address] [place], [address] WBC 0-5 SEEN Normal 0-5 [facility] Comment on above: Order Comment: CLEAN CATCH Performed By: #### L 400.0001 #### [facility] [address] [place], [address] BACTERIA 0 SEEN Normal None Seen [facility] Comment on above: Order Comment: CLEAN CATCH Performed By: #### L 400.0001 #### [facility] [address] [place], [address] Mucus Ql (Urine sed) 0 SEEN Normal [facility] Comment on above: Order Comment: CLEAN CATCH Performed By: #### L 400.0001 #### [facility] [address] [place], [address] Urine blood detectionOrdered By: Yony Solis on 11-19-2024 Urine Occult Blood 250 /ul High Negative [facility] Urine clarityOrdered By: Brien Solis on 11-19-2024 Clarity (U) Clear Clear [facility] Urine color determinationOrd ered By: Yony Solis on 11-19-2024 Color (U) Yellow Yellow [facility] Urine cultureOrdered By: Brien Solis on 11-19-2024 Bacteria identified Cx Nom (U) Positive Abnormal [facility] Urine glucose detectionOrder ed By: Yony Solis on 11-19-2024 Glucose Ql (U) 1000 mg/dl High Normal [facility] Urine leukocyte esterase det ection by dipstickOrdered By: Yony Solis on 11-19-2024 Leukocyte esterase Test strip Ql (U) 25 /ul High Negative [facility] Urine pHOrdered By: Yony Solis on 11-19-2024 pH (U) 6.0 [pH] 5.0 - 8.0 [facility] Urine sediment bacteria coun t by microscopy (number/high power field)Ordered By: Yony Solis on 11-19-2024 Bacteria LM.HPF (Urine sed) [#/Area] 0 /[HPF] None Seen [facility] Urine specific gravity measu rementOrdered By: Yony Solis on 11-19-2024 Specific gravity (U) [Rel density] 1.015 1.002-1.030 [facility] Urine urobilinogen measureme ntOrdered By: Yony Solis on 11-19-2024 Urobilinogen Ql (U) Normal mg/dl Normal [facility] Urobilinogen Ql (U)Ordered B y: Yony Solis on 11-19-2024 Urine Urobilinogen Normal mg/dl Normal [facility] White blood cell (WBC) count Ordered By: Yony Solis on 11-19-2024 WBC (Bld) [#/Vol] 8.8 10*3/uL 4.4-11.0 [facility] White blood cell countOrdere d By: Yony Solis on 11-19-2024 Urine WBC 0-5 SEEN /hpf 0-5 [facility] White blood cell count 0-5 SEEN /hpf 0-5 [facility] CNOVon 09-28-2024 CNOV Office Visit (INTMWS ) ITALO BURGOS ([id number]) 1970 M Date Time Provider Department 09/28/24 [...] HbA1C Influenza Vaccine(1) Covid-19 Vaccine( season) STEPHANIE Italo is a very pleasant 50-year-old gentleman. [...] Diagnosis Date Acute diastolic (congestive) heart failure ([facility]) Bronchitis Chronic kidney failure, stage 4 (severe) ([facility]) 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 ([facility]) 12/16/2018 Depression Detached retina DM type 2, goal HbA1c < 7% ([facility]) Erectile dysfunction, unspecified erectile dysfunction type ESRD (end stage renal disease) ([facility]) GERD (gastroesophageal reflux disease) Hyperlipidemia Kidney replaced by transplant Kidney stones LUANNE (obstructive sleep apnea) PNA (pneumonia) Proliferative retinopathy 02/10/2019 PTE (post-transplant erythrocytosis) Snoring Unspecified essential hypertension Vitamin D deficiency Vitamin D deficiency PAST SURGICAL HISTORY Procedure Laterality Date AMPUTATION TOE,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 08/08/2018 Done at [facility] by Satish Phan MD CHOLECYSTECTOMY 1998 Cholecystectomy COLONOSCOPY 12/04/2018 COLONOSCOPY SCREENING 04/01/2024 CYSTO W/COMPLEX REMOVAL STONE AND STENT 1999 EGD 12/04/2018 EGD W/O [facility] SPEC VARICIES INJ 04/01/2024 PAST [...] mg capsule (more content not included)... Normal [facility] Endocrinology Visit Reporton 07-28-2024 Endocrinology Visit Report [facility] [address] [place] [address] OFFICE VISIT Date of Service: 07/28/24 MR#: [id number] Acct: [id number] Name: LORETTAITALO Mery Rep #: [id number] : 1970 Provider: Silvano Cuellar Age/Sex: 53/M Location: [facility] Status: Signed Intake Vital Signs 04/30/24 09:57 [...] 07/17/24 07/28/24 Rx subcutaneous pen injector (dulaglutide) [facility] Medical History Congestive heart failure (CHF) [...] (LHC) ( 06/26/11) Atherosclerotic heart disease of [place] coronary artery without angina pectoris Essential hypertension [...] a 53 (more content not included)... Normal [facility] Laboratory - Hematology and Cell countson 07-28-2024 HbA1c (Bld) [Mass fraction] 8.5 % High 4.2-6.3 [facility] 06-23-2024 [facility] Telephone (TXCTGL) ITALO BURGOS ([id number]) 1970 Silvano Date Time Provider Department 06/23/24 AMANDA HAYES TXANDREI During your visit today, we recorded the following information about you: Amanda Hayes LISW 06/23/2024 11:10 AM Signed SW returned pt's phone call. Pt stated his Envarsus went to $92 a month. Pt reports he still has [facility] Dual (Medicare AND Medicaid) and he is not sure why his copay went up. SW informed pt that they can apply for assistance for envarsus via [employer]. ADDY emailed pt his portion of the envarsus application, as well as a 30 day copay card. SW will work on her portion of the application. Pt denies any other questions/concerns at this time. Pt has SW contact information for any future questions/concerns. SARA Sahu-S Transplant Photocopying Equipment Repairer Allergies As of Date: 06/23/2024 (No Known Allergies) Date Reviewed: 06/18/2024 Reviewed by: Deep Hanson LPN - Fully Assessed Reason for Visit: Follow Up [171] Prescriptions as of 06/23/2024 - tacrolimus IR (PROGRAF) 1 mg capsule Take 2 caps in am and 1 cap in pm - Blood-Glucose Meter,Continuous (DEXCOM G6 HEAVY MACHINERY OPERATOR) misc 1 Each continuous. - Blood-Glucose Sensor [...] Units subcutaneously daily at bedtime. - Insulin Lula, Disposable, (BD ULTRA-FINE SANDRA PEN NEEDLE) 32 [...] 3 mg/actuation nasal spray (BAQSIMI) Use 1 [place] in the nose as needed for low [...] polyneuropathy associa (more content not included)... Normal [facility] CNOVon 06-18-2024 CNOV Office Visit (INTMWS ) ITALO BURGOS ([id number]) 1970 M Date Time Provider Department 06/18/24 11:40 AM ZAIDA GASTON INTMWS During your visit today, we recorded the following information about you: Pulse Blood pressure Weight 100/minute 151/96 91.8 kg Zaida Gaston MD 06/18/2024 1:00 PM Signed Reason for Visit Patient presents with: Sania Burgos is a 53 year old male who presents here today for Above Complaints.. Health Maintenance Anxiety Screening BP Controlled (<130/80) Prostate Cancer Screening Discussion HbA1C Influenza Vaccine(1) Covid-19 Vaccine( season) STEPHANIE Italo is a very pleasant 50-year-old gentleman. [...] Diagnosis Date Acute diastolic (congestive) heart failure ([facility]) Bronchitis Chronic kidney failure, stage 4 (severe) ([facility]) 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 ([facility]) 12/16/2018 Depression Detached retina DM type 2, goal HbA1c < 7% ([facility]) Erectile dysfunction, unspecified erectile dysfunction type ESRD (end stage renal disease) ([facility]) GERD (gastroesophageal reflux disease) Hyperlipidemia Kidney replaced by transplant Kidney stones LUANNE (obstructive sleep apnea) PNA (pneumonia) Proliferative retinopathy 02/10/2019 PTE (post-transplant erythrocytosis) Snoring Unspecified essential hypertension Vitamin D deficiency Vitamin D deficiency PAST SURGICAL HISTORY Procedure Laterality Date AMPUTATION TOE,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 Normal [facility] [place] 06-18-2024 ANDREWS Telephone (TXCTGL) ITALO BURGOS ([id number]) 1970 Silvano Date Time Provider Department 06/18/24 AMANDA HAYES TXCTGL During your visit today, we recorded the following information about you: Amanda Hayes LISW 06/18/2024 11:38 AM Signed ADDY attempted to call pt per request of DOUGH MAKER regarding possible copay issues for Envarsus. In reviewing pt's chart is appears that pt has [facility] Dual (Medicare AND Medicaid.) ADDY attempted to contact pt and SW left a message. SW will await return phone call. SARA Sahu-S Transplant Photocopying Equipment Repairer Allergies As of Date: 06/18/2024 (No Known Allergies) Date Reviewed: 06/18/2024 Reviewed by: Deep Hanson LPN - Fully Assessed Reason for Visit: Follow Up [171] Prescriptions as of 06/18/2024 - tacrolimus IR (PROGRAF) 1 mg capsule Take 2 caps in am and 1 cap in pm - Blood-Glucose Meter,Continuous (DEXCOM G6 HEAVY MACHINERY OPERATOR) misc 1 Each continuous. - Blood-Glucose Sensor [...] for every 40 >180 mg/dL) - Insulin Lula, Disposable, (BD ULTRA-FINE SANDRA PEN NEEDLE) 32 [...] 3 mg/actuation nasal spray (BAQSIMI) Use 1 [place] in the nose as needed for low [...] classified [*0 (more content not included)... Normal [facility] HEMOGLOBIN A1C (POC)on 06-18 HbA1c (Bld) [Mass fraction] 7.1 % Abnormal 4.3 - 5.6 % [facility] Comment on above: Location:[facility], [address] [place] [address], [place], [address] Point of care (POC) Hemoglobin A1c (HGBA1C) [...] specific diabetes management situations: The POC device pet resort concierge provides a normal range of 4.2% to 6.5% for the HGBA1C POC test. However, the [place] [employer] guidelines indicate that patients with [...] Interpretation and review of laboratory results Abnormal [facility] CNPNon 06-16-2024 CNPN Telephone (TXCTGL) ITALO BURGOS ([id number]) 1970 M Date Time Provider Department 06/16/24 KIDNEY TXP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 % 40-54 [facility] Ketones Test strip Ql (U)Ord ered By: Loi Saldana on 03-13-2023 Ketones Ql (U) Negative Negative [facility] Laboratory - Chemistry and C hemistry - challengeOrdered By: Loi Saldana on 03-13-2023 ALP [Catalytic activity/Vol] 213 U/L 45-117 [facility] ALT [Catalytic activity/Vol] 53 U/L 16-61 [facility] CO2 [Moles/Vol] 21.0 mmol/L 21.0-32.0 [facility] Globulin (S) [Mass/Vol] 3.5 g/dL 2.2-4.2 [facility] Urea nitrogen/Creatinine [Mass ratio] 14.6 mg/mg 10-20 [facility] Laboratory - Hematology and Cell countsOrdered By: Loi Saldana on 03-13-2023 Erythrocyte distribution width (RBC) [Entitic vol] 43.1 fL 35.1-43.9 [facility] Erythrocyte distribution width (RBC) [Ratio] 12.5 % 11.6-14.6 [facility] Immature granulocytes/100 WBC (Bld) 0.300 % 0.0-0.9 [facility] Comment on above: IG% - Immature Granu locytes (promyelocytes, myelocytes and metamyelocytes) > 1% indicates that a LEFT SHIFT is Present. MCH (RBC) [Entitic mass] 31.2 pg 27.0-32.0 [facility] Nucleated RBC/100 WBC (Bld) [Ratio] 0 % 0-5 [facility] MCHC Auto (RBC) [Mass/Vol]Or dered By: Loi Saldana on 03-13-2023 MCHC (RBC) [Mass/Vol] 33.5 g/dL 32-36 [facility] Mucus LM Ql (Urine sed)Order ed By: Loi Saldana on 03-13-2023 Mucus Ql (Urine sed) 0 SEEN /hpf [facility] Nitrite Test strip Ql (U)Ord ered By: Loi Saldana on 03-13-2023 Nitrite Ql (U) Positive Negative [facility] No Panel InformationOrdered By: Loi Saldana on 03-13-2023 Estimated Creatinine Clearance Calc 42.55 ml/min [facility] Estimated GFR (MDRD) Amer 47 mL/min >60 [facility] Comment on above: GFR Calc Estimated GFR (MDRD) Non-Af Amer 39 mL/min >60 [facility] Comment on above: Non- GFR Calc Troponin I High Sensitivity 9 pg/mL 3.0-78.0 [facility] Comment on above: Please Note: New Isha t Units and Gender Specific Reference Ranges. For more information see Policy Stat Procedure [place] High Sensitivity Troponin (TNIH) and attachments. Platelets bldOrdered By: Ryan Saldana on 03-13-2023 Platelets (Bld) [#/Vol] 205 10*3/uL 150-450 [facility] Protein Test strip Ql (U)Ord ered By: Loi Saldana on 03-13-2023 Protein Ql (U) 30 mg/dl Negative [facility] Serum or plasma albumin regi urement (mass/volume)Ordered By: Loi Saldana on 03-13-2023 Albumin [Mass/Vol] 3.9 g/dL 3.2-5.0 [facility] Serum or plasma albumin/glob ulin mass ratioOrdered By: Loi Saldana on 03-13-2023 Albumin/Globulin [Mass ratio] 1.1 {ratio} 0.9-2.4 [facility] Serum or plasma calcium regi urement (mass/volume)Ordered By: Loi Saldana on 03-13-2023 Calcium [Mass/Vol] 9.1 mg/dL 8.5-10.1 [facility] Serum or plasma creatinine m easurement (mass/volume)Ordered By: Loi Saldana on 03-13-2023 Creatinine [Mass/Vol] 1.92 mg/dL 0.70-1.30 [facility] Comment on above: The validity of the calculated GFR & GFRAA in patients over 70 years has not been determined. Clinical correlation is essential. Serum or plasma urea nitroge n measurement (mass/volume)Ordered By: Loi Saldana on 03-13-2023 Urea nitrogen [Mass/Vol] 28 mg/dL 7-18 [facility] Squamous epithelial cells de tection in urine sediment by light microscopyOrdered By: Loi Saldana on 03-13-2023 Epithelial cells.squamous LM Ql (Urine sed) 0 SEEN /hpf 0-5 [facility] Thin prep Papanicolaou smear with manual screeningOrdered By: Loi Saldana on 03-13-2023 Thin prep Papanicolaou smear with manual screening 33 U/L 15-37 [facility] Thin prep Papanicolaou smear with manual screening 9 5-15 [facility] Urine blood detectionOrdered By: Loi Saldana on 03-13-2023 RBC Ql (U) 10 /ul Negative [facility] RBC Ql (U) 0 SEEN /hpf 0-5 [facility] Urine clarityOrdered By: Ryan Saldana on 03-13-2023 Clarity (U) Clear Clear [facility] Urine color determinationOrd ered By: Loi Saldana on 03-13-2023 Color (U) Yellow Yellow [facility] Urine glucose detectionOrder ed By: Loi Saldana on 03-13-2023 Glucose Ql (U) 1000 mg/dl Normal [facility] Urine leukocyte esterase det ection by dipstickOrdered By: Loi Saldana on 03-13-2023 Leukocyte esterase Test strip Ql (U) 25 /ul Negative [facility] Urine pHOrdered By: Loi aguilar on 03-13-2023 pH (U) 5.0 [pH] 5.0 - 8.0 [facility] Urine sediment bacteria coun t by microscopy (number/high power field)Ordered By: Loi Saldana on 03-13-2023 Bacteria LM.HPF (Urine sed) [#/Area] RARE /hpf None Seen [facility] Urine specific gravity measu rementOrdered By: Loi Saldana on 03-13-2023 Specific gravity (U) [Rel density] 1.020 1.002-1.030 [facility] Urobilinogen Auto test strip Ql (U)Ordered By: Loi Saldana on 03-13-2023 Urobilinogen Ql (U) 1 mg/dl Normal [facility] Whole blood hemoglobin A1c/t otal hemoglobin ratio (mass fraction)Ordered By: Conchis Meza on 01-11-2023 HbA1c (Bld) [Mass fraction] 9.2 % 3.8-5.6 [facility] Comment on above: Normal < 5.7 % Predi abetic 5.7 - 6.4 % Diabetic >or= 6.5 % Please note range changes. PROTEIN CREATININE RATIOon 0 01-01-2023 Protein/Creatinine (U) [Mass ratio] 0.07 mg/mg <0.15 mg/mg [facility] Protein/Creatinine (U) [Mass ratio]on 01-01-2023 Creatinine (U) [Mass/Vol] 97.1 mg/dL 20.0 - 300.0 mg/dL [facility] Protein (U) [Mass/Vol] 7 mg/dL 0 - 2 0 mg/dL [facility] URINALYSIS, DIPSTICK ONLYon 12-31-2022 Bilirubin Ql (U) Negative Negative [facility] Clarity (Unsp spec) Clear Clear [facility] Color (U) Light Yellow Yellow [facility] Glucose Test strip (U) [Mass/Vol] 1+ Abnormal Trace, Negative [facility] Hemoglobin Ql (U) Negative Negative, Trace [facility] Ketones Ql (U) Negative Negative, Trace [facility] Leukocyte esterase Test strip Ql (U) Negative Negative, 25 Pam/uL [facility] Nitrite Ql (U) Negative Negative [facility] pH (U) 5.0 [pH] 5.0 - 8.0 [facility] Protein (U) [Mass/Vol] Negative Trace , Negative [facility] Specific gravity (U) [Rel density] 1.012 1.005 - 1.030 [facility] Urobilinogen Ql (U) Negative Negative [facility] Acid fast bacilli (AFB) cult ureOrdered By: Dr. Levy on 12-18-2022 Mycobacterium sp identified Org specific cx Nom (Unsp spec) [facility] Thin prep Papanicolaou smear with manual screeningOrdered By: Dr. Levy on 12-05-2022 Thin prep Papanicolaou smear with manual screening [facility] Anaerobic cultureOrdered By: Dr. Levy on 11-06-2022 Bacteria identified Anaer cx Nom (Unsp spec) No growth in 5 days. [facility] Laboratory - Microbiology an d Antimicrobial susceptibilityOrdered By: Dr. Santiago on 11-06-2022 Bacteria identified Cx Nom (Bld) Negative [facility] Bacteria identified Cx Nom (Bld) No growth in 5 days. [facility] Bacteria identified Cx Nom ( Wound)Ordered By: Dr. Levy on 11-05-2022 Wound Culture Staphylococcus epidermidis [facility] Wound Culture Enterobacter cloacae complex [facility] Wound Culture Staphylococcus epidermidis [facility] Glucose Glucometer (BldC) [M ass/Vol]Ordered By: Dr. Levy on 11-05-2022 Glucose [Mass/Vol] 285 mg/dL 74-106 [facility] Comment on above: MANAGEMENT OF PATIEN T CARE PER NURSING PROTOCOL Serum or plasma C reactive p rotein measurement (mass/volume)Ordered By: Dr. Levy on 11-05-2022 CRP [Mass/Vol] 5.83 mg/L 0.0-3.0 [facility] Comment on above: C-Reactive Protein ( CRP) provides useful information for thediagnosis, therapy and monitoring of inflammatory processesand associated diseases. For the evaluation of Relative Riskfor Cardiovascular Disease, a High Sensitivity CRP (HSCRP)should be ordered. Vancomycin troughOrdered By: Dr. Jara on 11-05-2022 Vancomycin trough [Mass/Vol] 18.4 ug/mL 5.0-15.0 [facility] Comment on above: VANCOMYCIN STANDARED DRUG THERAPY TROUGH LEVEL: 5.0 - 15.0 mg/L VANCOMYCIN HIGH INTENSITY THERAPY TROUGH LEVEL: 15.0 - 20.0 mg/L High Intensity therapy recommended for serious lifethreatening infections include:- [id number]-Jdranvoey (Ventilator/Healtcare Associated)-Sepsis PLEASE CONTACT PHARMACY SERVICES (#[id number]) FOR INTERPRETATIONOF RESULTS. Absolute lymphocyte countOrd ered By: Dr. Niño on 11-04-2022 Lymphocytes Auto (Unsp spec) [#/Vol] 1.64 10*3/uL 0.83-4.51 [facility] Anaerobic cultureOrdered By: Dr. Levy on 11-04-2022 Bacteria identified Anaer cx Nom (Unsp spec) No anaerobic bacteria isolated. [facility] Basophil percentageOrdered B y: Dr. Niño on 11-04-2022 Basophils/100 WBC (Bld) 0.5 % 0-1 [facility] Chloride [Moles/Vol] 114 mmol/L 98-107 [facility] Eosinophils/100 WBC (Bld) 0.8 % 0-5 [facility] Glucose [Mass/Vol] 167 mg/dL 74-106 [facility] Comment on above: Fasting Glucose resu lt greater than or equal to 126 mg/dL suggests DIABETES MELLITUS per A.D.A. criteria. Neutrophils (Bld) [#/Vol] 3.8 10*3/uL 2.0-7.7 [facility] Neutrophils/100 WBC (Bld) 61.4 % 47-70 [facility] Potassium [Moles/Vol] 4.6 mmol/L 3.5-5.1 [facility] Sodium [Moles/Vol] 143 mmol/L 136-145 [facility] WBC (Bld) [#/Vol] 6.2 10*3/uL 4.4-11.0 [facility] Blood erythrocytes count (nu mber/volume)Ordered By: Dr. Niño on 11-04-2022 RBC (Bld) [#/Vol] 4.62 10*6/uL 4.6-6.2 [facility] Blood hemoglobin measurement (mass/volume)Ordered By: Dr. Niño on 11-04-2022 Hemoglobin (Bld) [Mass/Vol] 14.2 g/dL 13.0-16.5 [facility] Blood lymphocytes/100 leukoc ytesOrdered By: Dr. Niño on 11-04-2022 Lymphocytes/100 WBC (Bld) 26.5 % 19-41 [facility] Blood monocytes/100 leukocyt esOrdered By: Dr. Niño on 11-04-2022 Monocytes/100 WBC (Bld) 10.5 % 0-10 [facility] Blood platelet mean volumeOr dered By: Dr. Niño on 11-04-2022 Platelet mean volume (Bld) [Entitic vol] 10.1 fL 6.2-12.0 [facility] Determination of erythrocyte mean corpuscular volume (MCV)Ordered By: Dr. Niño on 11-04-2022 MCV (RBC) [Entitic vol] 95.5 fL 80-94 [facility] Hematocrit Auto (Bld) [Volum e fraction]Ordered By: Dr. Niño on 11-04-2022 Hematocrit (Bld) [Volume fraction] 44.1 % 40-54 [facility] Laboratory - Chemistry and C hemistry - challengeOrdered By: Dr. Niño on 11-04-2022 CO2 [Moles/Vol] 19.0 mmol/L 21.0-32.0 [facility] Urea nitrogen/Creatinine [Mass ratio] 29.9 mg/mg 10-20 [facility] Laboratory - Hematology and Cell countsOrdered By: Dr. Niño on 11-04-2022 Erythrocyte distribution width (RBC) [Entitic vol] 45.1 fL 35.1-43.9 [facility] Erythrocyte distribution width (RBC) [Ratio] 12.9 % 11.6-14.6 [facility] Immature granulocytes/100 WBC (Bld) 0.300 % 0.0-0.9 [facility] Comment on above: IG% - Immature Granu locytes (promyelocytes, myelocytes and metamyelocytes) > 1% indicates that a LEFT SHIFT is Present. MCH (RBC) [Entitic mass] 30.7 pg 27.0-32.0 [facility] Nucleated RBC/100 WBC (Bld) [Ratio] 0 % 0-5 [facility] MCHC Auto (RBC) [Mass/Vol]Or dered By: Dr. Niño on 11-04-2022 MCHC (RBC) [Mass/Vol] 32.2 g/dL 32-36 [facility] No Panel InformationOrdered By: Dr. Niño on 11-04-2022 Estimated Creatinine Clearance Calc 60.33 ml/min [facility] Estimated GFR (MDRD) Amer 70 mL/min >60 [facility] Comment on above: GFR Calc Estimated GFR (MDRD) Non-Af Amer 58 mL/min >60 [facility] Comment on above: Non- GFR Calc Platelets bldOrdered By: Dr. Niño on 11-04-2022 Platelets (Bld) [#/Vol] 184 10*3/uL 150-450 [facility] Serum or plasma calcium regi urement (mass/volume)Ordered By: Dr. Niño on 11-04-2022 Calcium [Mass/Vol] 9.4 mg/dL 8.5-10.1 [facility] Serum or plasma creatinine m easurement (mass/volume)Ordered By: Dr. Niño on 11-04-2022 Creatinine [Mass/Vol] 1.37 mg/dL 0.70-1.30 [facility] Comment on above: The validity of the calculated GFR & GFRAA in patients over 70 years has not been determined. Clinical correlation is essential. Serum or plasma urea nitroge n measurement (mass/volume)Ordered By: Dr. Niño on 11-04-2022 Urea nitrogen [Mass/Vol] 41 mg/dL 7-18 [facility] Serum or plasma vancomycin m easurement (mass/volume)Ordered By: Dr. Smith on 11-04-2022 Vancomycin [Mass/Vol] 16.1 ug/mL 0.0-15.0 [facility] Comment on above: VANCOMYCIN STANDARD DRUG THERAPY: CRITICAL VALUE IS > 15.0 mg/L VANCOMYCIN HIGH INTENSITY THERAPY: CRITICAL VALUE IS > 20.0 mg/L PLEASE CONTACT PHARMACY SERVICES (#[id number]) FOR INTERPRETATIONOF RESULTS. THIS RESULT DOES NOT REPRESENT A PEAK OR TROUGHLEVEL FOR THIS DRUG. Thin prep Papanicolaou smear with manual screeningOrdered By: Dr. Niño on 11-04-2022 Thin prep Papanicolaou smear with manual screening 10 5-15 [facility] Gram stain for investigation of transfusion reactionOrdered By: Dr. Levy on 11-02-2022 Microscopic observation Gram stain Nom (Unsp spec) [facility] No Panel InformationOrdered By: Dr. Santiago on 11-02-2022 Bacteria Detection (PCR) Negative [facility] Absolute lymphocyte countOrd ered By: Dr. Santiago on 11-01-2022 Lymphocytes Auto (Unsp spec) [#/Vol] 1.35 10*3/uL 0.83-4.51 [facility] Basophil percentageOrdered B y: Dr. Santiago on 11-01-2022 Basophil percentage 0 SEEN /hpf 0-5 [facility] Basophils/100 WBC (Bld) 0.3 % 0-1 [facility] Bilirubin [Mass/Vol] 0.50 mg/dL 0.20-1.00 [facility] Comment on above: For patients on eltr ombopag therapy, use of Dimension [place] TBIL is not recommended. Chloride [Moles/Vol] 108 mmol/L 98-107 [facility] Eosinophils/100 WBC (Bld) 0.9 % 0-5 [facility] Glucose [Mass/Vol] 266 mg/dL 74-106 [facility] Comment on above: Glucose result great er than or equal to 200 mg/dLsuggests DIABETES MELLITUS per A.D.A. criteria. Lactate [Moles/Vol] 1.4 mmol/L 0.4-2.0 [facility] Neutrophils (Bld) [#/Vol] 4.3 10*3/uL 2.0-7.7 [facility] Neutrophils/100 WBC (Bld) 67.5 % 47-70 [facility] Potassium [Moles/Vol] 5.2 mmol/L 3.5-5.1 [facility] Comment on above: Slight Hemolysis, Re sult may be falsely increased. Protein [Mass/Vol] 7.2 g/dL 6.4-8.2 [facility] Sodium [Moles/Vol] 139 mmol/L 136-145 [facility] WBC (Bld) [#/Vol] 6.4 10*3/uL 4.4-11.0 [facility] Bilirubin Test strip Ql (U)O rdered By: Dr. Santiago on 11-01-2022 Bilirubin Ql (U) Negative Negative [facility] Blood erythrocytes count (nu mber/volume)Ordered By: Dr. Santiago on 11-01-2022 RBC (Bld) [#/Vol] 5.23 10*6/uL 4.6-6.2 [facility] Blood hemoglobin measurement (mass/volume)Ordered By: Dr. Santiago on 11-01-2022 Hemoglobin (Bld) [Mass/Vol] 15.9 g/dL 13.0-16.5 [facility] Blood lymphocytes/100 leukoc ytesOrdered By: Dr. Santiago on 11-01-2022 Lymphocytes/100 WBC (Bld) 21.1 % 19-41 [facility] Blood monocytes/100 leukocyt esOrdered By: Dr. Santiago on 11-01-2022 Monocytes/100 WBC (Bld) 9.7 % 0-10 [facility] Blood platelet mean volumeOr dered By: Dr. Santiago on 11-01-2022 Platelet mean volume (Bld) [Entitic vol] 9.9 fL 6.2-12.0 [facility] COVID-19 virus antigen assay Ordered By: Dr. Amor on 11-01-2022 SARS-CoV-2 (COVID-19) Ag IA.rapid Ql (Resp) [facility] Determination of erythrocyte mean corpuscular volume (MCV)Ordered By: Dr. Santiago on 11-01-2022 MCV (RBC) [Entitic vol] 95.0 fL 80-94 [facility] Erythrocyte sedimentation ra teOrdered By: Dr. Santiago on 11-01-2022 ESR (Bld) [Velocity] 10 mm/h 0-20 [facility] Glucose Glucometer (BldC) [M ass/Vol]Ordered By: Dr. Levy on 11-01-2022 Glucose [Mass/Vol] 264 mg/dL 74-106 [facility] Comment on above: MANAGEMENT OF PATIEN T CARE PER NURSING PROTOCOL Hematocrit Auto (Bld) [Volum e fraction]Ordered By: Dr. Santiago on 11-01-2022 Hematocrit (Bld) [Volume fraction] 49.7 % 40-54 [facility] INR in Blood by Coagulation assayOrdered By: Dr. Santigao on 11-01-2022 INR Coag (Bld) [Relative time] 1.1 {INR} [facility] Ketones Test strip Ql (U)Ord ered By: Dr. Santiago on 11-01-2022 Ketones Ql (U) Negative Negative [facility] Laboratory - Chemistry and C hemistry - challengeOrdered By: Dr. Santiago on 11-01-2022 ALP [Catalytic activity/Vol] 156 U/L 45-117 [facility] ALT [Catalytic activity/Vol] 41 U/L 16-61 [facility] CO2 [Moles/Vol] 25.0 mmol/L 21.0-32.0 [facility] Globulin (S) [Mass/Vol] 3.7 g/dL 2.2-4.2 [facility] Urea nitrogen/Creatinine [Mass ratio] 22.7 mg/mg 10-20 [facility] Laboratory - CoagulationOrde red By: Dr. Santiago on 11-01-2022 aPTT Coag (Bld) [Time] 28.9 s 24.1-36.2 [facility] Coag (PPP) [Time] 13.4 s 11.7-14.9 [facility] Laboratory - Hematology and Cell countsOrdered By: Dr. Santiago on 11-01-2022 Erythrocyte distribution width (RBC) [Entitic vol] 44.9 fL 35.1-43.9 [facility] Erythrocyte distribution width (RBC) [Ratio] 12.7 % 11.6-14.6 [facility] Immature granulocytes/100 WBC (Bld) 0.500 % 0.0-0.9 [facility] Comment on above: IG% - Immature Granu locytes (promyelocytes, myelocytes and metamyelocytes) > 1% indicates that a LEFT SHIFT is Present. MCH (RBC) [Entitic mass] 30.4 pg 27.0-32.0 [facility] Nucleated RBC/100 WBC (Bld) [Ratio] 0 % 0-5 [facility] MCHC Auto (RBC) [Mass/Vol]Or dered By: Dr. Santiago on 11-01-2022 MCHC (RBC) [Mass/Vol] 32.0 g/dL 32-36 [facility] Mucus LM Ql (Urine sed)Order ed By: Dr. Santiago on 11-01-2022 Mucus Ql (Urine sed) 0 SEEN /hpf [facility] Nitrite Test strip Ql (U)Ord ered By: Dr. Santiago on 11-01-2022 Nitrite Ql (U) Negative Negative [facility] No Panel InformationOrdered By: Dr. Santiago on 11-01-2022 Estimated Creatinine Clearance Calc 50.71 ml/min [facility] Estimated GFR (MDRD) Amer 57 mL/min >60 [facility] Comment on above: GFR Calc Estimated GFR (MDRD) Non-Af Amer 47 mL/min >60 [facility] Comment on above: Non- GFR Calc Platelets bldOrdered By: Dr. Santiago on 11-01-2022 Platelets (Bld) [#/Vol] 199 10*3/uL 150-450 [facility] Protein Test strip Ql (U)Ord ered By: Dr. Santiago on 11-01-2022 Protein Ql (U) Negative Negative [facility] Serum or plasma C reactive p rotein measurement (mass/volume)Ordered By: Dr. Santiago on 11-01-2022 CRP [Mass/Vol] 10.80 mg/L 0.0-3.0 [facility] Comment on above: C-Reactive Protein ( CRP) provides useful information for thediagnosis, therapy and monitoring of inflammatory processesand associated diseases. For the evaluation of Relative Riskfor Cardiovascular Disease, a High Sensitivity CRP (HSCRP)should be ordered. Serum or plasma albumin regi urement (mass/volume)Ordered By: Dr. Santiago on 11-01-2022 Albumin [Mass/Vol] 3.5 g/dL 3.2-5.0 [facility] Serum or plasma albumin/glob ulin mass ratioOrdered By: Dr. Santiago on 11-01-2022 Albumin/Globulin [Mass ratio] 0.9 {ratio} 0.9-2.4 [facility] Serum or plasma calcium regi urement (mass/volume)Ordered By: Dr. Santiago on 11-01-2022 Calcium [Mass/Vol] 9.6 mg/dL 8.5-10.1 [facility] Serum or plasma creatinine m easurement (mass/volume)Ordered By: Dr. Santiago on 11-01-2022 Creatinine [Mass/Vol] 1.63 mg/dL 0.70-1.30 [facility] Comment on above: The validity of the calculated GFR & GFRAA in patients over 70 years has not been determined. Clinical correlation is essential. Serum or plasma urea nitroge n measurement (mass/volume)Ordered By: Dr. Santiago on 11-01-2022 Urea nitrogen [Mass/Vol] 37 mg/dL 7-18 [facility] Squamous epithelial cells de tection in urine sediment by light microscopyOrdered By: Dr. Santiago on 11-01-2022 Epithelial cells.squamous LM Ql (Urine sed) 0 SEEN /hpf 0-5 [facility] Thin prep Papanicolaou smear with manual screeningOrdered By: Dr. Santiago on 11-01-2022 Thin prep Papanicolaou smear with manual screening 23 U/L 15-37 [facility] Comment on above: Slight Hemolysis, Re sult may be falsely increased. Thin prep Papanicolaou smear with manual screening 6 5-15 [facility] Urine blood detectionOrdered By: Dr. Santiago on 11-01-2022 RBC Ql (U) 10 /ul Negative [facility] RBC Ql (U) 0 SEEN /hpf 0-5 [facility] Urine clarityOrdered By: Dr. Santiago on 11-01-2022 Clarity (U) Clear Clear [facility] Urine color determinationOrd ered By: Dr. Santiago on 11-01-2022 Color (U) Yellow Yellow [facility] Urine glucose detectionOrder ed By: Dr. Santiago on 11-01-2022 Glucose Ql (U) 1000 mg/dl Normal [facility] Urine leukocyte esterase det ection by dipstickOrdered By: Dr. Santiago on 11-01-2022 Leukocyte esterase Test strip Ql (U) Negative Negative [facility] Urine pHOrdered By: Dr. Jay ramirez on 11-01-2022 pH (U) 6.0 [pH] 5.0 - 8.0 [facility] Urine sediment bacteria coun t by microscopy (number/high power field)Ordered By: Dr. Santiago on 11-01-2022 Bacteria LM.HPF (Urine sed) [#/Area] 0 /[HPF] None Seen [facility] Urine specific gravity measu rementOrdered By: Dr. Santiago on 11-01-2022 Specific gravity (U) [Rel density] 1.030 1.002-1.030 [facility] Urobilinogen Auto test strip Ql (U)Ordered By: Dr. Santiago on 11-01-2022 Urobilinogen Ql (U) 1 mg/dl Normal [facility] Anaerobic cultureOrdered By: Dona Medina on 10-28-2022 Bacteria identified Anaer cx Nom (Unsp spec) No anaerobic bacteria isolated. [facility] Bacteria identified Cx Nom ( Wound)Ordered By: Dona Medina on 10-28-2022 Wound Culture Staphylococcus epidermidis [facility] Wound Culture Pseudomonas aeroginosa [facility] Gram stain for investigation of transfusion reactionOrdered By: Dona Medina on 10-26-2022 Microscopic observation Gram stain Nom (Unsp spec) [facility] PROTEIN CREATININE RATIOon 0 09-24-2022 Protein/Creatinine (U) [Mass ratio] 0.07 mg/mg <0.15 mg/mg [facility] Protein/Creatinine (U) [Mass ratio]on 09-24-2022 Creatinine (U) [Mass/Vol] 76.2 mg/dL 20.0 - 300.0 mg/dL [facility] Protein (U) [Mass/Vol] 5 mg/dL 0 - 2 0 mg/dL [facility] URINALYSIS, DIPSTICK ONLYon 09-24-2022 Bilirubin Ql (U) Negative Negative [facility] Clarity (Unsp spec) Clear Clear [facility] Color (U) Light Yellow Yellow [facility] Glucose Test strip (U) [Mass/Vol] 3+ Abnormal Trace, Negative [facility] Hemoglobin Ql (U) Negative Negative, Trace [facility] Ketones Ql (U) Negative Negative, Trace [facility] Leukocyte esterase Test strip Ql (U) Negative Negative, 25 Pam/mL [facility] Nitrite Ql (U) Negative Negative [facility] pH (U) 6.0 [pH] 5.0 - 8.0 [facility] Protein (U) [Mass/Vol] Negative Trace , Negative [facility] Specific gravity (U) [Rel density] 1.013 1.005 - 1.030 [facility] Urobilinogen Ql (U) Negative Negative [facility] Glucose Glucometer (BldC) [M ass/Vol]Ordered By: Dona Medina on 09-11-2022 Glucose [Mass/Vol] 247 mg/dL 74-106 [facility] Comment on above: MANAGEMENT OF PATIEN T CARE PER NURSING PROTOCOL Laboratory - Hematology and Cell countson 09-06-2022 HbA1c (Bld) [Mass fraction] 9.9 % [facility] Glucose Glucometer (BldC) [M ass/Vol]Ordered By: Dona Medina on 09-05-2022 Glucose [Mass/Vol] 176 mg/dL 74-106 [facility] Comment on above: MANAGEMENT OF PATIEN T CARE PER NURSING PROTOCOL Absolute lymphocyte countOrd ered By: Dr. Barroso on 08-28-2022 Lymphocytes Auto (Unsp spec) [#/Vol] 1.20 10*3/uL 0.83-4.51 [facility] Basophil percentageOrdered B y: Dr. Barroso on 08-28-2022 Basophils/100 WBC (Bld) 0.3 % 0-1 [facility] Bilirubin [Mass/Vol] 0.50 mg/dL 0.20-1.00 [facility] Comment on above: For patients on eltr ombopag therapy, use of Dimension [place] TBIL is not recommended. Chloride [Moles/Vol] 112 mmol/L 98-107 [facility] Eosinophils/100 WBC (Bld) 0.7 % 0-5 [facility] Glucose [Mass/Vol] 104 mg/dL 74-106 [facility] Comment on above: Fasting Glucose resu lt from 100 to 125 mg/dL suggests IMPAIRED HOMEOSTASIS per A.D.A. criteria. Neutrophils (Bld) [#/Vol] 8.3 10*3/uL 2.0-7.7 [facility] Neutrophils/100 WBC (Bld) 79.7 % 47-70 [facility] Potassium [Moles/Vol] 4.3 mmol/L 3.5-5.1 [facility] Protein [Mass/Vol] 7.3 g/dL 6.4-8.2 [facility] Sodium [Moles/Vol] 142 mmol/L 136-145 [facility] WBC (Bld) [#/Vol] 10.3 10*3/uL 4.4-11.0 [facility] Blood erythrocytes count (nu mber/volume)Ordered By: Dr. Barroso on 08-28-2022 RBC (Bld) [#/Vol] 5.13 10*6/uL 4.6-6.2 [facility] Blood hemoglobin measurement (mass/volume)Ordered By: Dr. Barroso on 08-28-2022 Hemoglobin (Bld) [Mass/Vol] 15.2 g/dL 13.0-16.5 [facility] Blood lymphocytes/100 leukoc ytesOrdered By: Dr. Barroso on 08-28-2022 Lymphocytes/100 WBC (Bld) 11.6 % 19-41 [facility] Blood monocytes/100 leukocyt esOrdered By: Dr. Barroso on 08-28-2022 Monocytes/100 WBC (Bld) 7.2 % 0-10 [facility] Blood platelet mean volumeOr dered By: Dr. Barroso on 08-28-2022 Platelet mean volume (Bld) [Entitic vol] 9.4 fL 6.2-12.0 [facility] Determination of erythrocyte mean corpuscular volume (MCV)Ordered By: Dr. Barroso on 08-28-2022 MCV (RBC) [Entitic vol] 92.6 fL 80-94 [facility] Glucose Glucometer (BldC) [M ass/Vol]Ordered By: Dr. Barroso on 08-28-2022 Glucose [Mass/Vol] 118 mg/dL 74-106 [facility] Comment on above: MANAGEMENT OF PATIEN T CARE PER NURSING PROTOCOL Glucose Glucometer (BldC) [M ass/Vol]on 08-28-2022 Glucose [Mass/Vol] 60 mg/dL 74-106 [facility] Work Phone: Comment on above: MANAGEMENT OF PATIEN T CARE PER NURSING PROTOCOL Hematocrit Auto (Bld) [Volum e fraction]Ordered By: Dr. Barroso on 08-28-2022 Hematocrit (Bld) [Volume fraction] 47.5 % 40-54 [facility] Laboratory - Chemistry and C hemistry - challengeOrdered By: Dr. Barroso on 08-28-2022 ALP [Catalytic activity/Vol] 174 U/L 45-117 [facility] ALT [Catalytic activity/Vol] 54 U/L 16-61 [facility] CO2 [Moles/Vol] 26.0 mmol/L 21.0-32.0 [facility] Globulin (S) [Mass/Vol] 3.8 g/dL 2.2-4.2 [facility] Urea nitrogen/Creatinine [Mass ratio] 23.6 mg/mg 10-20 [facility] Laboratory - Hematology and Cell countsOrdered By: Dr. Barroso on 08-28-2022 Erythrocyte distribution width (RBC) [Entitic vol] 44.8 fL 35.1-43.9 [facility] Erythrocyte distribution width (RBC) [Ratio] 13.2 % 11.6-14.6 [facility] Immature granulocytes/100 WBC (Bld) 0.500 % 0.0-0.9 [facility] Comment on above: IG% - Immature Granu locytes (promyelocytes, myelocytes and metamyelocytes) > 1% indicates that a LEFT SHIFT is Present. MCH (RBC) [Entitic mass] 29.6 pg 27.0-32.0 [facility] Nucleated RBC/100 WBC (Bld) [Ratio] 0 % 0-5 [facility] MCHC Auto (RBC) [Mass/Vol]Or dered By: Dr. Barroso on 08-28-2022 MCHC (RBC) [Mass/Vol] 32.0 g/dL 32-36 [facility] No Panel InformationOrdered By: Dr. Barroso on 08-28-2022 Estimated Creatinine Clearance Calc 57.40 ml/min [facility] Estimated GFR (MDRD) Amer 66 mL/min >60 [facility] Comment on above: GFR Calc Estimated GFR (MDRD) Non-Af Amer 54 mL/min >60 [facility] Comment on above: Non- GFR Calc Platelets bldOrdered By: Dr. Barroso on 08-28-2022 Platelets (Bld) [#/Vol] 210 10*3/uL 150-450 [facility] Serum or plasma albumin regi urement (mass/volume)Ordered By: Dr. Barroso on 08-28-2022 Albumin [Mass/Vol] 3.5 g/dL 3.2-5.0 [facility] Serum or plasma albumin/glob ulin mass ratioOrdered By: Dr. Barroso on 08-28-2022 Albumin/Globulin [Mass ratio] 0.9 {ratio} 0.9-2.4 [facility] Serum or plasma calcium regi urement (mass/volume)Ordered By: Dr. Barroso on 08-28-2022 Calcium [Mass/Vol] 9.4 mg/dL 8.5-10.1 [facility] Serum or plasma creatinine m easurement (mass/volume)Ordered By: Dr. Barroso on 08-28-2022 Creatinine [Mass/Vol] 1.44 mg/dL 0.70-1.30 [facility] Comment on above: The validity of the calculated GFR & GFRAA in patients over 70 years has not been determined. Clinical correlation is essential. Serum or plasma urea nitroge n measurement (mass/volume)Ordered By: Dr. Barroso on 08-28-2022 Urea nitrogen [Mass/Vol] 34 mg/dL 7-18 [facility] Thin prep Papanicolaou smear with manual screeningOrdered By: Dr. Barroso on 08-28-2022 Thin prep Papanicolaou smear with manual screening 26 U/L 15-37 [facility] Thin prep Papanicolaou smear with manual screening 4 5-15 [facility] Glucose Glucometer (BldC) [M ass/Vol]Ordered By: Dona Medina on 08-08-2022 Glucose [Mass/Vol] 197 mg/dL 74-106 [facility] Comment on above: MANAGEMENT OF PATIEN T CARE PER NURSING PROTOCOL PROTEIN CREATININE RATIOon 1 10-03-2021 Protein/Creatinine (U) [Mass ratio] 0.08 mg/mg <0.15 mg/mg [facility] Protein/Creatinine (U) [Mass ratio]on 08-03-2022 Creatinine (U) [Mass/Vol] 80.0 mg/dL 20.0 - 300.0 mg/dL [facility] Protein (U) [Mass/Vol] 6 mg/dL 0 - 2 0 mg/dL [facility] URINALYSIS, DIPSTICK ONLYon 08-03-2022 Bilirubin Ql (U) Negative Negative [facility] Clarity (Unsp spec) Clear Clear [facility] Color (U) Light Yellow Yellow [facility] Glucose Test strip (U) [Mass/Vol] 3+ Abnormal Negative [facility] Hemoglobin Ql (U) Trace Abnormal Negative [facility] Ketones Ql (U) Negative Negative [facility] Leukocyte esterase Test strip Ql (U) Negative Negative [facility] Nitrite Ql (U) Negative Negative [facility] pH (U) 5.5 [pH] 5.0 - 8.0 [facility] Protein (U) [Mass/Vol] Negative Negative [facility] Specific gravity (U) [Rel density] 1.015 1.005 - 1.030 [facility] Urobilinogen Ql (U) Negative Negative [facility] HEMOGLOBIN A1C (POC)on 07-13 HbA1c (Bld) [Mass fraction] 10.6 % Abnormal 4.2 - 5.6 % [facility] Glucose Glucometer (dC) [M ass/Vol]Ordered By: Dona Medina on 07-09-2022 Glucose [Mass/Vol] 227 mg/dL 74-106 [facility] Comment on above: MANAGEMENT OF PATIEN T CARE PER NURSING PROTOCOL PROTEIN CREATININE RATIOon 1 Protein/Creatinine (U) [Mass ratio] 0.12 mg/mg <0.15 mg/mg [facility] Protein/Creatinine (U) [Mass ratio]on 07-05-2022 Creatinine (U) [Mass/Vol] 65.0 mg/dL 20.0 - 300.0 mg/dL [facility] Protein (U) [Mass/Vol] 8 mg/dL 0 - 2 0 mg/dL [facility] URINALYSIS, DIPSTICK ONLYon 07-05-2022 Bilirubin Ql (U) Negative Negative [facility] Clarity (Unsp spec) Clear Clear [facility] Color (U) Light Yellow Yellow [facility] Glucose Test strip (U) [Mass/Vol] 4+ Abnormal Negative [facility] Hemoglobin Ql (U) Negative Negative [facility] Ketones Ql (U) Negative Negative [facility] Leukocyte esterase Test strip Ql (U) Negative Negative [facility] Nitrite Ql (U) Negative Negative [facility] pH (U) 6.0 [pH] 5.0 - 8.0 [facility] Protein (U) [Mass/Vol] Negative Negative [facility] Specific gravity (U) [Rel density] 1.015 1.005 - 1.030 [facility] Urobilinogen Ql (U) Negative Negative [facility] CBC W Auto Differential pane l (Bld)on 06-08-2022 Abs Immature Gran 0.08 k/uL <0.10 k/uL [facility] Basophils (Bld) [#/Vol] 0.04 10*3/uL <0.11 k/uL [facility] Basophils/100 WBC (Bld) 0.4 % [facility] Differential cell count method Nom (Bld) Auto [facility] Eosinophils (Bld) [#/Vol] <0.46 k/uL [facility] Eosinophils/100 WBC (Bld) 0.2 % [facility] Erythrocyte distribution width (RBC) [Ratio] 13.1 % 11.5 - 15.0 % [facility] Hematocrit (Bld) [Volume fraction] 49.2 % 39.0 - 51.0 % [facility] Hemoglobin (Bld) [Mass/Vol] 15.8 g/dL 13.0 - 17.0 g/dL [facility] Immature Gran % 0.7 % [facility] Lymphocytes (Bld) [#/Vol] 1.42 10*3/uL 1.00 - 4.00 k/uL [facility] Lymphocytes/100 WBC (Bld) 12.6 % [facility] MCH (RBC) [Entitic mass] 28.8 pg 26. 0 - 34.0 pg [facility] MCHC (RBC) [Mass/Vol] 32.1 g/dL 30.5 - 36.0 g/dL [facility] MCV (RBC) [Entitic vol] 89.6 fL 80.0 - 100.0 fL [facility] Monocytes (Bld) [#/Vol] 0.99 10*3/uL High <0.87 k/uL [facility] Monocytes/100 WBC (Bld) 8.8 % [facility] ([facility]ld[facility] [#/Vol] 8.70 10*3/uL High 1.45 - 7.50 k/uL [facility] Neutrophils/100 WBC (Bld) 77.3 % [facility] Nucleated RBC (Bld) [#/Vol] <0.01 k/uL [facility] Nucleated RBC/100 WBC (Bld) [Ratio] 0.0 /100 WBC [facility] Platelet mean volume (Bld) [Entitic vol] 9.8 fL 9.0 - 12.7 fL [facility] Platelets (Bld) [#/Vol] 273 10*3/uL 150 - 400 k/uL [facility] RBC (Bld) [#/Vol] 5.49 10*6/uL 4.20 - 6.0 0 m/uL [facility] WBC (Bld) [#/Vol] 11.25 10*3/uL High 3.70 - 11.00 k/uL [facility] CMV DNA DETECTION AND QUANTo n 06-08-2022 CMV DNA CARMEN+probe Qn (P) Not detected CMV DNA Not Detected [facility] Comprehensive metabolic 2000 panelon 06-08-2022 Albumin [Mass/Vol] 3.9 g/dL 3.9 - 4.9 g/dL [facility] ALP [Catalytic activity/Vol] 259 U/L High 38 - 113 U/L [facility] ALT [Catalytic activity/Vol] 62 U/L High 10 - 54 U/L [facility] Anion gap [Moles/Vol] 12 mmol/L 9 - 18 mmol/L [facility] AST [Catalytic activity/Vol] 39 U/L 14 - 40 U/L [facility] Bilirubin [Mass/Vol] 0.4 mg/dL 0.2 - 1 .3 mg/dL [facility] Calcium [Mass/Vol] 10.5 mg/dL High 8.5 - 10. 2 mg/dL [facility] Chloride [Moles/Vol] 102 mmol/L 97 - 10 5 mmol/L [facility] CO2 [Moles/Vol] 23 mmol/L 22 - 30 mmol/L [facility] Creatinine [Mass/Vol] 1.58 mg/dL High 0.73 - 1.22 mg/dL [facility] Estimated Glomerular Filtration Rate 52 mL/min/1.73m Low >=60 mL/min/1.73 m [facility] Glucose [Mass/Vol] 204 mg/dL High 74 - 99 mg/dL [facility] Potassium [Moles/Vol] 4.9 mmol/L 3.7 - 5.1 mmol/L [facility] Protein [Mass/Vol] 7.4 g/dL 6.3 - 8.0 g/dL [facility] Sodium [Moles/Vol] 137 mmol/L 136 - 144 mmol/L [facility] Urea nitrogen [Mass/Vol] 31 mg/dL High 9 - 24 mg/dL [facility] Laboratory - Microbiology an d Antimicrobial susceptibilityon 06-08-2022 BK virus DNA CARMEN+probe [#/Vol] Not detected BK Virus DNA Not Detected by PCR. [facility] MAGNESIUM BLDon 06-08-2022 Magnesium [Mass/Vol] 1.7 mg/dL 1.7 - 2 .3 mg/dL [facility] PHOSPHORUS INORGANICon 06-08 Phosphate [Mass/Vol] 2.0 mg/dL Low 2.7 - 4 .8 mg/dL [facility] [facility] PROTEIN CREATININE RATIOon 0 06-08-2022 Protein/Creatinine (U) [Mass ratio] 67 mg/g <150 mg/g [facility] Protein/Creatinine (U) [Mass ratio]on 06-08-2022 Creatinine (U) [Mass/Vol] 74.7 mg/dL 20.0 - 300.0 mg/dL [facility] Protein (U) [Mass/Vol] 5 mg/dL 0 - 2 0 mg/dL [facility] TACROLIMUS/[id number] BLon 06-08 Tacrolimus (Bld) [Mass/Vol] 9.9 ng/mL 5.0 - 20.0 ng/mL [facility] URINALYSIS, DIPSTICK ONLYon 06-08-2022 Bilirubin Ql (U) Negative [facility] Clarity (Unsp spec) Clear Clear [facility] Color (U) Light Yellow Yellow [facility] Glucose Test strip (U) [Mass/Vol] 4+ Abnormal Negative [facility] Hemoglobin Ql (U) 2+ Abnormal Negative [facility] Ketones Ql (U) Negative Negative [facility] Leukocyte esterase Test strip Ql (U) Negative Negative [facility] Nitrite Ql (U) Negative Negative [facility] pH (U) 6.0 [pH] 5.0 - 8.0 [facility] Protein (U) [Mass/Vol] Negative Negative [facility] Specific gravity (U) [Rel density] 1.016 1.005 - 1.030 [facility] Urobilinogen Ql (U) Negative Negative [facility] Basophil percentageon 2021 Bilirubin [Mass/Vol] 0.40 mg/dL 0.20-1.00 [facility] Work Phone: Comment on above: For patients on eltr ombopag therapy, use of Dimension [place] TBIL is not recommended. Chloride [Moles/Vol] 103 mmol/L 98-107 [facility] Work Phone: Glucose [Mass/Vol] 175 mg/dL 74-106 [facility] Work Phone: Comment on above: Fasting Glucose resu lt greater than or equal to 126 mg/dL suggests DIABETES MELLITUS per A.D.A. criteria. Potassium [Moles/Vol] 4.6 mmol/L 3.5-5.1 [facility] Work Phone: Protein [Mass/Vol] 7.8 g/dL 6.4-8.2 [facility] Work Phone: Sodium [Moles/Vol] 139 mmol/L 136-145 [facility] Work Phone: Erythrocyte sedimentation ra bk 05-31-2022 ESR (Bld) [Velocity] 30 mm/h 0-20 [facility] Work Phone: Laboratory - Chemistry and C hemistry - challengeon 05-31-2022 ALP [Catalytic activity/Vol] 258 U/L 45-117 [facility] Work Phone: ALT [Catalytic activity/Vol] 68 U/L 16-61 [facility] Work Phone: CO2 [Moles/Vol] 30.0 mmol/L 21.0-32.0 [facility] Work Phone: Globulin (S) [Mass/Vol] 4.6 g/dL 2.2-4.2 [facility] Work Phone: Urea nitrogen/Creatinine [Mass ratio] 21.9 mg/mg 10-20 [facility] Work Phone: No Panel Informationon 05-31 Estimated Creatinine Clearance Calc 51.66 ml/min [facility] Work Phone: Estimated GFR (MDRD) Amer 58 mL/min >60 [facility] Work Phone: Comment on above: GFR Calc Estimated GFR (MDRD) Non-Af Amer 48 mL/min >60 [facility] Work Phone: Comment on above: Non- GFR Calc Serum or plasma albumin regi urement (mass/volume)on 05-31-2022 Albumin [Mass/Vol] 3.2 g/dL 3.2-5.0 [facility] Work Phone: Serum or plasma albumin/glob ulin mass ratioon 05-31-2022 Albumin/Globulin [Mass ratio] 0.7 {ratio} 0.9-2.4 [facility] Work Phone: Serum or plasma calcium regi urement (mass/volume)on 05-31-2022 Calcium [Mass/Vol] 10.1 mg/dL 8.5-10.1 [facility] Work Phone: Serum or plasma creatinine m easurement (mass/volume)on 05-31-2022 Creatinine [Mass/Vol] 1.60 mg/dL 0.70-1.30 [facility] Work Phone: Comment on above: The validity of the calculated GFR & GFRAA in patients over 70 years has not been determined. Clinical correlation is essential. Serum or plasma transthyreti n measurement (mass/volume)on 05-31-2022 Prealbumin [Mass/Vol] 21.0 mg/dL 20.0-40.0 [facility] Work Phone: Serum or plasma urea nitroge n measurement (mass/volume)on 05-31-2022 Urea nitrogen [Mass/Vol] 35 mg/dL 7-18 [facility] Work Phone: Thin prep Papanicolaou smear with manual screeningon 05-31-2022 Thin prep Papanicolaou smear with manual screening 30 U/L 15-37 [facility] Work Phone: Thin prep Papanicolaou smear with manual screening 6 5-15 [facility] Work Phone: Whole blood hemoglobin A1c/t otal hemoglobin ratio (mass fraction)on 05-31-2022 HbA1c (Bld) [Mass fraction] 10.5 % 3.8-5.6 [facility] Work Phone: Comment on above: Normal < 5.7 % Predi abetic 5.7 - 6.4 % Diabetic >or= 6.5 % Please note range changes. Basophil percentageon 2021 Chloride [Moles/Vol] 104 mmol/L 98-107 [facility] Work Phone: Glucose [Mass/Vol] 361 mg/dL 74-106 [facility] Work Phone: Comment on above: Glucose result great er than or equal to 200 mg/dLsuggests DIABETES MELLITUS per A.D.A. criteria. Potassium [Moles/Vol] 5.0 mmol/L 3.5-5.1 [facility] Work Phone: Sodium [Moles/Vol] 137 mmol/L 136-145 [facility] Work Phone: WBC (Bld) [#/Vol] 6.7 10*3/uL 4.4-11.0 [facility] Work Phone: Blood erythrocytes count (nu mber/volume)on 04-30-2022 RBC (Bld) [#/Vol] 5.09 10*6/uL 4.6-6.2 [facility] Work Phone: Blood hemoglobin measurement (mass/volume)on 04-30-2022 Hemoglobin (Bld) [Mass/Vol] 15.0 g/dL 13.0-16.5 [facility] Work Phone: Blood platelet mean volumeon 04-30-2022 Platelet mean volume (Bld) [Entitic vol] 10.8 fL 6.2-12.0 [facility] Work Phone: Determination of erythrocyte mean corpuscular volume (MCV)on 04-30-2022 MCV (RBC) [Entitic vol] 93.3 fL 80-94 [facility] Work Phone: Erythrocyte sedimentation ra bk 04-30-2022 ESR (Bld) [Velocity] 42 mm/h 0-20 [facility]: Hematocrit Auto (Bld) [Volum e fraction]on 04-30-2022 Hematocrit (Bld) [Volume fraction] 47.5 % 40-54 [facility] Work Phone: Laboratory - Chemistry and C hemistry - challengeon 04-30-2022 CO2 [Moles/Vol] 26.0 mmol/L 21.0-32.0 [facility] Work Phone: Urea nitrogen/Creatinine [Mass ratio] 22.2 mg/mg 10-20 [facility] Work Phone: Laboratory - Hematology and Cell countson 04-30-2022 Erythrocyte distribution width (RBC) [Entitic vol] 50.6 fL 35.1-43.9 [facility] Work Phone: Erythrocyte distribution width (RBC) [Ratio] 14.6 % 11.6-14.6 [facility] Work Phone: MCH (RBC) [Entitic mass] 29.5 pg 27.0-32.0 [facility] Work Phone: MCHC Auto (RBC) [Mass/Vol]on 04-30-2022 MCHC (RBC) [Mass/Vol] 31.6 g/dL 32-36 [facility]: No Panel Informationon 04-30 Estimated GFR (MDRD) Amer 61 mL/min >60 [facility] Work Phone: Comment on above: GFR Calc Estimated GFR (MDRD) Non-Af Amer 51 mL/min >60 [facility] Work Phone: Comment on above: Non- GFR Calc Platelets bldon 04-30-2022 Platelets (Bld) [#/Vol] 227 10*3/uL 150-450 [facility] Work Phone: Serum or plasma calcium regi urement (mass/volume)on 04-30-2022 Calcium [Mass/Vol] 9.4 mg/dL 8.5-10.1 [facility] Work Phone: Serum or plasma creatinine m easurement (mass/volume)on 04-30-2022 Creatinine [Mass/Vol] 1.53 mg/dL 0.70-1.30 [facility] Work Phone: Comment on above: The validity of the calculated GFR & GFRAA in patients over 70 years has not been determined. Clinical correlation is essential. Serum or plasma urea nitroge n measurement (mass/volume)on 04-30-2022 Urea nitrogen [Mass/Vol] 34 mg/dL 7-18 [facility] Work Phone: Thin prep Papanicolaou smear with manual screeningon 04-30-2022 Thin prep Papanicolaou smear with manual screening 7 5-15 [facility] Work Phone: Vancomycin troughon 04-30-20 Vancomycin trough [Mass/Vol] 11.0 ug/mL 5.0-15.0 [facility] Work Phone: Comment on above: VANCOMYCIN STANDARED DRUG THERAPY TROUGH LEVEL: 5.0 - 15.0 mg/L VANCOMYCIN HIGH INTENSITY THERAPY TROUGH LEVEL: 15.0 - 20.0 mg/L High Intensity therapy recommended for serious lifethreatening infections include:- Qamawnvngz-Ymnxkouddhmu-Nkdvlximt (Ventilator/Healtcare Associated)-Sepsis PLEASE CONTACT PHARMACY SERVICES (#[id number]) FOR INTERPRETATIONOF RESULTS. Serum or plasma vancomycin m easurement (mass/volume)on 04-23-2022 Vancomycin [Mass/Vol] 13.7 ug/mL 0.0-15.0 [facility] Work Phone: Comment on above: VANCOMYCIN STANDARD DRUG THERAPY: CRITICAL VALUE IS > 15.0 mg/L VANCOMYCIN HIGH INTENSITY THERAPY: CRITICAL VALUE IS > 20.0 mg/L PLEASE CONTACT PHARMACY SERVICES (#[id number]) FOR INTERPRETATIONOF RESULTS. THIS RESULT DOES NOT REPRESENT A PEAK OR TROUGHLEVEL FOR THIS DRUG. Basophil percentageon 2021 Chloride [Moles/Vol] 106 mmol/L 98-107 [facility] Work Phone: Glucose [Mass/Vol] 429 mg/dL 74-106 [facility] Work Phone: Comment on above: Glucose result great er than or equal to 200 mg/dLsuggests DIABETES MELLITUS per A.D.A. criteria. Potassium [Moles/Vol] 4.3 mmol/L 3.5-5.1 [facility] Work Phone: Sodium [Moles/Vol] 137 mmol/L 136-145 [facility] Work Phone: WBC (Bld) [#/Vol] 6.3 10*3/uL 4.4-11.0 [facility] Work Phone: Blood erythrocytes count (nu mber/volume)on 04-09-2022 RBC (Bld) [#/Vol] 4.71 10*6/uL 4.6-6.2 [facility] Work Phone: Blood hemoglobin measurement (mass/volume)on 04-09-2022 Hemoglobin (Bld) [Mass/Vol] 13.6 g/dL 13.0-16.5 [facility] Work Phone: Blood platelet mean volumeon 04-09-2022 Platelet mean volume (Bld) [Entitic vol] 10.6 fL 6.2-12.0 [facility] Work Phone: Determination of erythrocyte mean corpuscular volume (MCV)on 04-09-2022 MCV (RBC) [Entitic vol] 93.2 fL 80-94 [facility] Work Phone: Erythrocyte sedimentation ra bk 04-09-2022 ESR (Bld) [Velocity] 31 mm/h 0-20 [facility] Work Phone: Hematocrit Auto (Bld) [Volum e fraction]on 04-09-2022 Hematocrit (Bld) [Volume fraction] 43.9 % 40-54 [facility] Work Phone: Laboratory - Chemistry and C hemistry - challengeon 04-09-2022 CO2 [Moles/Vol] 27.0 mmol/L 21.0-32.0 [facility] Work Phone: Urea nitrogen/Creatinine [Mass ratio] 20.3 mg/mg 10-20 [facility] Work Phone: Laboratory - Hematology and Cell countson 04-09-2022 Erythrocyte distribution width (RBC) [Entitic vol] 48.0 fL 35.1-43.9 [facility] Work Phone: Erythrocyte distribution width (RBC) [Ratio] 14.2 % 11.6-14.6 [facility] Work Phone: MCH (RBC) [Entitic mass] 28.9 pg 27.0-32.0 [facility] Work Phone: MCHC Auto (RBC) [Mass/Vol]on 04-09-2022 MCHC (RBC) [Mass/Vol] 31.0 g/dL 32-36 [facility] Work Phone: No Panel Informationon 04-09 Estimated GFR (MDRD) Amer 64 mL/min >60 [facility] Work Phone: Comment on above: GFR Calc Estimated GFR (MDRD) Non-Af Amer 53 mL/min >60 [facility] Work Phone: Comment on above: Non- GFR Calc Platelets bldon 04-09-2022 Platelets (Bld) [#/Vol] 242 10*3/uL 150-450 [facility] Work Phone: Serum or plasma calcium regi urement (mass/volume)on 04-09-2022 Calcium [Mass/Vol] 8.9 mg/dL 8.5-10.1 [facility] Work Phone: Serum or plasma creatinine m easurement (mass/volume)on 04-09-2022 Creatinine [Mass/Vol] 1.48 mg/dL 0.70-1.30 [facility] Work Phone: Comment on above: The validity of the calculated GFR & GFRAA in patients over 70 years has not been determined. Clinical correlation is essential. Serum or plasma urea nitroge n measurement (mass/volume)on 04-09-2022 Urea nitrogen [Mass/Vol] 30 mg/dL 7-18 [facility] Work Phone: Thin prep Papanicolaou smear with manual screeningon 04-09-2022 Thin prep Papanicolaou smear with manual screening 4 5-15 [facility] Work Phone: Vancomycin troughon 04-09-20 22 Vancomycin trough [Mass/Vol] 15.1 ug/mL 5.0-15.0 [facility] Work Phone: Comment on above: VANCOMYCIN STANDARED DRUG THERAPY TROUGH LEVEL: 5.0 - 15.0 mg/L VANCOMYCIN HIGH INTENSITY THERAPY TROUGH LEVEL: 15.0 - 20.0 mg/L High Intensity therapy recommended for serious lifethreatening infections include:- Eiwodqcmhb-Uutkrkddktlr-Qxxqnmjpi (Ventilator/Healtcare Associated)-Sepsis PLEASE CONTACT PHARMACY SERVICES (#[id number]) FOR INTERPRETATIONOF RESULTS. Basophil percentageon 2021 Chloride [Moles/Vol] 105 mmol/L 98-107 [facility] Work Phone: Glucose [Mass/Vol] 269 mg/dL 74-106 [facility] Work Phone: Comment on above: Glucose result great er than or equal to 200 mg/dLsuggests DIABETES MELLITUS per A.D.A. criteria. Potassium [Moles/Vol] 4.4 mmol/L 3.5-5.1 [facility] Work Phone: Sodium [Moles/Vol] 137 mmol/L 136-145 [facility] Work Phone: Laboratory - Chemistry and C hemistry - challengeon 04-05-2022 CO2 [Moles/Vol] 25.0 mmol/L 21.0-32.0 [facility] Work Phone: Urea nitrogen/Creatinine [Mass ratio] 26.1 mg/mg 10-20 [facility] Work Phone: No Panel Informationon 04-05 Estimated GFR (MDRD) Amer 67 mL/min >60 [facility] Work Phone: Comment on above: GFR Calc Estimated GFR (MDRD) Non-Af Amer 55 mL/min >60 [facility] Work Phone: Comment on above: Non- GFR Calc Serum or plasma calcium regi urement (mass/volume)on 04-05-2022 Calcium [Mass/Vol] 9.1 mg/dL 8.5-10.1 [facility] Work Phone: Serum or plasma creatinine m easurement (mass/volume)on 04-05-2022 Creatinine [Mass/Vol] 1.42 mg/dL 0.70-1.30 [facility] Work Phone: Comment on above: The validity of the calculated GFR & GFRAA in patients over 70 years has not been determined. Clinical correlation is essential. Serum or plasma urea nitroge n measurement (mass/volume)on 04-05-2022 Urea nitrogen [Mass/Vol] 37 mg/dL 7-18 [facility] Work Phone: Thin prep Papanicolaou smear with manual screeningon 04-05-2022 Thin prep Papanicolaou smear with manual screening 7 5-15 [facility] Work Phone: Vancomycin troughon 04-05-20 22 Vancomycin trough [Mass/Vol] 20.1 ug/mL 5.0-15.0 [facility] Work Phone: Comment on above: VANCOMYCIN STANDARED DRUG THERAPY TROUGH LEVEL: 5.0 - 15.0 mg/L VANCOMYCIN HIGH INTENSITY THERAPY TROUGH LEVEL: 15.0 - 20.0 mg/L High Intensity therapy recommended for serious lifethreatening infections include:- Nbpahppkmu-Lvowlxiguwyt-Zqlvlpmwd (Ventilator/Healtcare Associated)-Sepsis PLEASE CONTACT PHARMACY SERVICES (#[id number]) FOR INTERPRETATIONOF RESULTS. Basophil percentageon 2021 Chloride [Moles/Vol] 110 mmol/L 98-107 [facility] Work Phone: Glucose [Mass/Vol] 115 mg/dL 74-106 [facility] Work Phone: Comment on above: Fasting Glucose resu lt from 100 to 125 mg/dL suggests IMPAIRED HOMEOSTASIS per A.D.A. criteria. Potassium [Moles/Vol] 4.3 mmol/L 3.5-5.1 [facility] Work Phone: Comment on above: Moderate Hemolysis, Result may be falsely increased. Sodium [Moles/Vol] 139 mmol/L 136-145 [facility] Work Phone: WBC (Bld) [#/Vol] 9.0 10*3/uL 4.4-11.0 [facility] Work Phone: Blood erythrocytes count (nu mber/volume)on 04-02-2022 RBC (Bld) [#/Vol] 4.88 10*6/uL 4.6-6.2 [facility] Work Phone: Blood hemoglobin measurement (mass/volume)on 04-02-2022 Hemoglobin (Bld) [Mass/Vol] 14.2 g/dL 13.0-16.5 [facility] Work Phone: Blood platelet mean volumeon 04-02-2022 Platelet mean volume (Bld) [Entitic vol] 10.3 fL 6.2-12.0 [facility] Work Phone: Determination of erythrocyte mean corpuscular volume (MCV)on 04-02-2022 MCV (RBC) [Entitic vol] 94.3 fL 80-94 [facility] Work Phone: Erythrocyte sedimentation ra bk 04-02-2022 ESR (Bld) [Velocity] 48 mm/h 0-20 [facility] Work Phone: Hematocrit Auto (Bld) [Volum e fraction]on 04-02-2022 Hematocrit (Bld) [Volume fraction] 46.0 % 40-54 [facility] Work Phone: Laboratory - Chemistry and C hemistry - challengeon 04-02-2022 CO2 [Moles/Vol] 24.0 mmol/L 21.0-32.0 [facility] Work Phone: Urea nitrogen/Creatinine [Mass ratio] 19.6 mg/mg 10-20 [facility] Work Phone: Laboratory - Hematology and Cell countson 04-02-2022 Erythrocyte distribution width (RBC) [Entitic vol] 45.1 fL 35.1-43.9 [facility] Work Phone: Erythrocyte distribution width (RBC) [Ratio] 13.2 % 11.6-14.6 [facility] Work Phone: MCH (RBC) [Entitic mass] 29.1 pg 27.0-32.0 [facility] Work Phone: MCHC Auto (RBC) [Mass/Vol]on 04-02-2022 MCHC (RBC) [Mass/Vol] 30.9 g/dL 32-36 [facility] Work Phone: No Panel Informationon 04-02 Estimated GFR (MDRD) Amer 62 mL/min >60 [facility] Work Phone: Comment on above: GFR Calc Estimated GFR (MDRD) Non-Af Amer 51 mL/min >60 [facility] Work Phone: Comment on above: Non- GFR Calc Platelets bldon 04-02-2022 Platelets (Bld) [#/Vol] 277 10*3/uL 150-450 [facility] Work Phone: Serum or plasma calcium regi urement (mass/volume)on 04-02-2022 Calcium [Mass/Vol] 9.1 mg/dL 8.5-10.1 [facility] Work Phone: Serum or plasma creatinine m easurement (mass/volume)on 04-02-2022 Creatinine [Mass/Vol] 1.53 mg/dL 0.70-1.30 [facility] Work Phone: Comment on above: The validity of the calculated GFR & GFRAA in patients over 70 years has not been determined. Clinical correlation is essential. Serum or plasma urea nitroge n measurement (mass/volume)on 04-02-2022 Urea nitrogen [Mass/Vol] 30 mg/dL 7-18 [facility] Work Phone: Thin prep Papanicolaou smear with manual screeningon 04-02-2022 Thin prep Papanicolaou smear with manual screening 5 5-15 [facility] Work Phone: Vancomycin troughon 04-02-20 Vancomycin trough [Mass/Vol] 24.2 ug/mL 5.0-15.0 [facility] Work Phone: Comment on above: VANCOMYCIN STANDARED DRUG THERAPY TROUGH LEVEL: 5.0 - 15.0 mg/L VANCOMYCIN HIGH INTENSITY THERAPY TROUGH LEVEL: 15.0 - 20.0 mg/L High Intensity therapy recommended for serious lifethreatening infections include:- Jjggwceveg-Hlkypvpdqosv-Epkgrrsil (Ventilator/Healtcare Associated)-Sepsis PLEASE CONTACT PHARMACY SERVICES (#[id number]) FOR INTERPRETATIONOF RESULTS. Absolute lymphocyte counton 03-28-2022 Lymphocytes Auto (Unsp spec) [#/Vol] 0.96 10*3/uL 0.83-4.51 [facility] Work Phone: Basophil percentageon 2021 Basophils/100 WBC (Bld) 0.4 % 0-1 [facility] Work Phone: Chloride [Moles/Vol] 105 mmol/L 98-107 [facility]: Eosinophils/100 WBC (Bld) 1.2 % 0-5 [facility] Work Phone: Glucose [Mass/Vol] 336 mg/dL 74-106 [facility] Work Phone: Comment on above: Glucose result great er than or equal to 200 mg/dLsuggests DIABETES MELLITUS per A.D.A. criteria. Neutrophils (Bld) [#/Vol] 7.3 10*3/uL 2.0-7.7 [facility] Work Phone: Neutrophils/100 WBC (Bld) 78.9 % 47-70 [facility] Work Phone: Potassium [Moles/Vol] 4.3 mmol/L 3.5-5.1 [facility] Work Phone: Sodium [Moles/Vol] 139 mmol/L 136-145 [facility] Work Phone: WBC (Bld) [#/Vol] 9.2 10*3/uL 4.4-11.0 [facility] Work Phone: Blood erythrocytes count (nu mber/volume)on 03-28-2022 RBC (Bld) [#/Vol] 4.84 10*6/uL 4.6-6.2 [facility] Work Phone: Blood hemoglobin measurement (mass/volume)on 03-28-2022 Hemoglobin (Bld) [Mass/Vol] 13.8 g/dL 13.0-16.5 [facility] Work Phone: [phone] Blood lymphocytes/100 leukoc yteson 03-28-2022 Lymphocytes/100 WBC (Bld) 10.4 % 19-41 [facility] Work Phone: [phone] Blood monocytes/100 leukocyt eson 03-28-2022 Monocytes/100 WBC (Bld) 8.2 % 0-10 [facility] Work Phone: [phone] Blood platelet mean volumeon 03-28-2022 Platelet mean volume (Bld) [Entitic vol] 10.5 fL 6.2-12.0 [facility] Work Phone: Determination of erythrocyte mean corpuscular volume (MCV)on 03-28-2022 MCV (RBC) [Entitic vol] 90.7 fL 80-94 [facility] Work Phone: Glucose Glucometer (BldC) [M ass/Vol]on 03-28-2022 Glucose [Mass/Vol] 186 mg/dL 74-106 [facility] Work Phone: Comment on above: MANAGEMENT OF PATIEN T CARE PER NURSING PROTOCOL Hematocrit Auto (Bld) [Volum e fraction]on 03-28-2022 Hematocrit (Bld) [Volume fraction] 43.9 % 40-54 [facility] Work Phone: Laboratory - Chemistry and C hemistry - challengeon 03-28-2022 CO2 [Moles/Vol] 28.0 mmol/L 21.0-32.0 [facility] Work Phone: Urea nitrogen/Creatinine [Mass ratio] 13.9 mg/mg 10-20 [facility] Work Phone: Laboratory - Hematology and Cell countson 03-28-2022 Erythrocyte distribution width (RBC) [Entitic vol] 42.6 fL 35.1-43.9 [facility] Work Phone: Erythrocyte distribution width (RBC) [Ratio] 12.8 % 11.6-14.6 [facility] Work Phone: Immature granulocytes/100 WBC (Bld) 0.900 % 0.0-0.9 [facility] Work Phone: Comment on above: IG% - Immature Granu locytes (promyelocytes, myelocytes and metamyelocytes) > 1% indicates that a LEFT SHIFT is Present. MCH (RBC) [Entitic mass] 28.5 pg 27.0-32.0 [facility] Work Phone: Nucleated RBC/100 WBC (Bld) [Ratio] 0 % 0-5 [facility] Work Phone: MCHC Auto (RBC) [Mass/Vol]on 03-28-2022 MCHC (RBC) [Mass/Vol] 31.4 g/dL 32-36 [facility] Work Phone: No Panel Informationon 03-28 Estimated Creatinine Clearance Calc 67.75 ml/min [facility] Work Phone: Estimated GFR (MDRD) Amer 80 mL/min >60 [facility] Work Phone: Comment on above: GFR Calc Estimated GFR (MDRD) Non-Af Amer 66 mL/min >60 [facility] Work Phone: Comment on above: Non- GFR Calc Platelets bldon 03-28-2022 Platelets (Bld) [#/Vol] 297 10*3/uL 150-450 [facility] Work Phone: Serum or plasma calcium regi urement (mass/volume)on 03-28-2022 Calcium [Mass/Vol] 8.8 mg/dL 8.5-10.1 [facility] Work Phone: Serum or plasma creatinine m easurement (mass/volume)on 03-28-2022 Creatinine [Mass/Vol] 1.22 mg/dL 0.70-1.30 [facility] Work Phone: Comment on above: The validity of the calculated GFR & GFRAA in patients over 70 years has not been determined. Clinical correlation is essential. Serum or plasma urea nitroge n measurement (mass/volume)on 03-28-2022 Urea nitrogen [Mass/Vol] 17 mg/dL 03-26 [facility] Work Phone: Thin prep Papanicolaou smear with manual screeningon 03-28-2022 Thin prep Papanicolaou smear with manual screening 6 5-15 [facility] Work Phone: Vancomycin troughon 03-27-20 Vancomycin trough [Mass/Vol] 15.1 ug/mL 5.0-15.0 [facility] Work Phone: Comment on above: VANCOMYCIN STANDARED DRUG THERAPY TROUGH LEVEL: 5.0 - 15.0 mg/L VANCOMYCIN HIGH INTENSITY THERAPY TROUGH LEVEL: 15.0 - 20.0 mg/L High Intensity therapy recommended for serious lifethreatening infections include:- Jndxnpbprw-Ehmleojokocd-Apeejyokh (Ventilator/Healtcare Associated)-Sepsis PLEASE CONTACT PHARMACY SERVICES (#[id number]) FOR INTERPRETATIONOF RESULTS. Basophil percentageon 2021 Bilirubin [Mass/Vol] 0.60 mg/dL 0.20-1.00 [facility] Work Phone: Comment on above: For patients on eltr ombopag therapy, use of Dimension [place] TBIL is not recommended. Protein [Mass/Vol] 5.8 g/dL 6.4-8.2 [facility] Work Phone: Laboratory - Chemistry and C hemistry - challengeon 03-26-2022 ALP [Catalytic activity/Vol] 175 U/L 45-117 [facility] Work Phone: ALT [Catalytic activity/Vol] 57 U/L 16-61 [facility] Work Phone: Globulin (S) [Mass/Vol] 3.8 g/dL 2.2-4.2 [facility] Work Phone: Serum or plasma albumin regi urement (mass/volume)on 03-26-2022 Albumin [Mass/Vol] 2.0 g/dL 3.2-5.0 [facility] Work Phone: Serum or plasma albumin/glob ulin mass ratioon 03-26-2022 Albumin/Globulin [Mass ratio] 0.5 {ratio} 0.9-2.4 [facility] Work Phone: Thin prep Papanicolaou smear with manual screeningon 03-26-2022 Thin prep Papanicolaou smear with manual screening 35 U/L 15-37 [facility] Work Phone: Absolute lymphocyte counton 03-24-2022 Lymphocytes Auto (Unsp spec) [#/Vol] 1.16 10*3/uL 0.83-4.51 [facility] Work Phone: Basophil percentageon 2021 Basophils/100 WBC (Bld) 0.2 % 0-1 [facility] Work Phone: Chloride [Moles/Vol] 100 mmol/L 98-107 [facility] Work Phone: Eosinophils/100 WBC (Bld) 0.1 % 0-5 [facility] Work Phone: Glucose [Mass/Vol] 397 mg/dL 74-106 [facility] Work Phone: Comment on above: Glucose result great er than or equal to 200 mg/dLsuggests DIABETES MELLITUS per A.D.A. criteria. Lactate [Moles/Vol] 1.9 mmol/L 0.4-2.0 [facility] Work Phone: Neutrophils (Bld) [#/Vol] 13.0 10*3/uL 2.0-7.7 [facility] Work Phone: Neutrophils/100 WBC (Bld) 80.9 % 47-70 [facility] Work Phone: Potassium [Moles/Vol] 4.7 mmol/L 3.5-5.1 [facility] Work Phone: Comment on above: Slight Hemolysis, Re sult may be falsely increased. Sodium [Moles/Vol] 132 mmol/L 136-145 [facility] Work Phone: WBC (Bld) [#/Vol] 16.1 10*3/uL 4.4-11.0 [facility] Work Phone: Blood erythrocytes count (nu mber/volume)on 03-24-2022 RBC (Bld) [#/Vol] 5.35 10*6/uL 4.6-6.2 [facility] Work Phone: Blood hemoglobin measurement (mass/volume)on 03-24-2022 Hemoglobin (Bld) [Mass/Vol] 15.4 g/dL 13.0-16.5 [facility] Work Phone: Blood lymphocytes/100 leukoc yteson 03-24-2022 Lymphocytes/100 WBC (Bld) 7.2 % 19-41 [facility] Work Phone: Blood manual differential co mment interpretation (narrative result)on 03-24-2022 Manual differential comment Vernon (Bld) [Interp] SCANNED [facility] Work Phone: Manual differential comment Vernon (Bld) [Interp] SCANNED [facility] Work Phone: Blood monocytes/100 leukocyt eson 03-24-2022 Monocytes/100 WBC (Bld) 10.9 % 0-10 [facility] Work Phone: Blood platelet mean volumeon 03-24-2022 Platelet mean volume (Bld) [Entitic vol] 10.1 fL 6.2-12.0 [facility] Work Phone: Determination of erythrocyte mean corpuscular volume (MCV)on 03-24-2022 MCV (RBC) [Entitic vol] 90.3 fL 80-94 [facility] Work Phone: Erythrocyte sedimentation ra bk 03-24-2022 ESR (Bld) [Velocity] 92 mm/h 0-20 [facility] Work Phone: Hematocrit Auto (Bld) [Volum e fraction]on 03-24-2022 Hematocrit (Bld) [Volume fraction] 48.3 % 40-54 [facility] Work Phone: Laboratory - Chemistry and C hemistry - challengeon 03-24-2022 CO2 [Moles/Vol] 24.0 mmol/L 21.0-32.0 [facility] Work Phone: Magnesium [Mass/Vol] 2.2 mg/dL 1.6-2.6 [facility] Work Phone: Comment on above: Slight Hemolysis, Re sult may be falsely increased. Urea nitrogen/Creatinine [Mass ratio] 14.6 mg/mg 10-20 [facility] Work Phone: Laboratory - Hematology and Cell countson 03-24-2022 Erythrocyte distribution width (RBC) [Entitic vol] 42.1 fL 35.1-43.9 [facility] Work Phone: [phone] Erythrocyte distribution width (RBC) [Ratio] 12.8 % 11.6-14.6 [facility] Work Phone: Immature granulocytes/100 WBC (Bld) 0.700 % 0.0-0.9 [facility] Work Phone: Comment on above: IG% - Immature Granu locytes (promyelocytes, myelocytes and metamyelocytes) > 1% indicates that a LEFT SHIFT is Present. MCH (RBC) [Entitic mass] 28.8 pg 27.0-32.0 [facility] Work Phone: Nucleated RBC/100 WBC (Bld) [Ratio] 0 % 0-5 [facility] Work Phone: MCHC Auto (RBC) [Mass/Vol]on 03-24-2022 MCHC (RBC) [Mass/Vol] 31.9 g/dL 32-36 [facility] Work Phone: No Panel Informationon 03-24 Methicillin-Resist S.aureus DNA PCR Negative Negative [facility] Work Phone: Estimated Creatinine Clearance Calc 36.57 ml/min [facility] Work Phone: Estimated GFR (MDRD) Amer 39 mL/min >60 [facility] Work Phone: Comment on above: GFR Calc Estimated GFR (MDRD) Non-Af Amer 32 mL/min >60 [facility] Work Phone: Comment on above: Non- GFR Calc Tacrolimus (Prograf) Level 14.1 ng/mL 2.0-20.0 [facility] Work Phone: Comment on above: Trough (immediately following transplant) 15.0 Trough (steady state, 2 weeks or more after transplant): 3.0 - 8.0 Performed by LC-MS/MS technology.Performed at: [address] [id number] Director: Zechariah Cotton MD, Phone: [phone] Platelets bldon 03-24-2022 Platelets (Bld) [#/Vol] 249 10*3/uL 150-450 [facility] Work Phone: Review by pathologiston 03-09 Pathologist review Vernon (Unsp spec) [Interp] Reviewed [facility] Work Phone: Comment on above: Previous reported re sult: Eri harley Edited by: RGOOD on 03/26/22:1201Neutrophilic leukocytosis.Clinical correlation suggested.Robbie Castro D.O. 03/26/22 AMENDED REPORT 03/26/22 1201 PATH REV previously reported as: Eri harley Pathologist review Vernon (Unsp spec) [Interp] Eri souza [facility] Work Phone: Serum or plasma C reactive p rotein measurement (mass/volume)on 03-24-2022 CRP [Mass/Vol] 187.00 mg/L 0.0-3.0 [facility] Work Phone: Comment on above: C-Reactive Protein ( CRP) provides useful information for thediagnosis, therapy and monitoring of inflammatory processesand associated diseases. For the evaluation of Relative Riskfor Cardiovascular Disease, a High Sensitivity CRP (HSCRP)should be ordered. Serum or plasma calcium regi urement (mass/volume)on 03-24-2022 Calcium [Mass/Vol] 9.6 mg/dL 8.5-10.1 [facility] Work Phone: Serum or plasma creatinine m easurement (mass/volume)on 03-24-2022 Creatinine [Mass/Vol] 2.26 mg/dL 0.70-1.30 [facility] Work Phone: Comment on above: The validity of the calculated GFR & GFRAA in patients over 70 years has not been determined. Clinical correlation is essential. Serum or plasma urea nitroge n measurement (mass/volume)on 03-24-2022 Urea nitrogen [Mass/Vol] 33 mg/dL 7-18 [facility] Work Phone: Staphylococcus aureus DNA de tection by probe and target amplification methodon 03-24-2022 S. aureus DNA CARMEN+probe Ql (Unsp spec) Positive Negative [facility] Work Phone: Thin prep Papanicolaou smear with manual screeningon 03-24-2022 Thin prep Papanicolaou smear with manual screening 8 5-15 [facility] Work Phone: Whole blood hemoglobin A1c/t otal hemoglobin ratio (mass fraction)on 03-24-2022 HbA1c (Bld) [Mass fraction] 10.5 % 3.8-5.6 [facility] Work Phone: Comment on above: Normal < 5.7 % Predi abetic 5.7 - 6.4 % Diabetic >or= 6.5 % Please note range changes. URINALYSIS, DIPSTICK ONLYon 03-08-2022 Bilirubin Ql (U) Negative Negative [facility] Clarity (Unsp spec) Clear Clear [facility] Color (U) Light Yellow Yellow [facility] Glucose Test strip (U) [Mass/Vol] 4+ Abnormal Negative [facility] Hemoglobin Ql (U) 1+ Abnormal Negative [facility] Ketones Ql (U) Negative Negative [facility] Leukocyte esterase Test strip Ql (U) Negative Negative [facility] Nitrite Ql (U) Negative Negative [facility] pH (U) 5.5 [pH] 5.0 - 8.0 [facility] Protein (U) [Mass/Vol] Negative Negative [facility] Specific gravity (U) [Rel density] 1.015 1.005 - 1.030 [facility] Urobilinogen Ql (U) Negative Negative [facility] URINALYSIS, DIPSTICK ONLYon 12-08-2021 Bilirubin Ql (U) Negative Negative [facility] Clarity (Unsp spec) Clear Clear [facility] Color (U) Light Yellow Yellow [facility] Glucose Test strip (U) [Mass/Vol] 4+ Abnormal Negative [facility] Hemoglobin Ql (U) 2+ Abnormal Negative [facility] Ketones Ql (U) Negative Negative [facility] Leukocyte esterase Test strip Ql (U) Negative Negative [facility] Nitrite Ql (U) Negative Negative [facility] pH (U) 6.0 [pH] 5.0 - 8.0 [facility] Protein (U) [Mass/Vol] Negative Negative [facility] Specific gravity (U) [Rel density] 1.013 1.005 - 1.030 [facility] Urobilinogen Ql (U) 1+ Abnormal Negative Primitivo [facility] Absolute lymphocyte counton 12-04-2021 Lymphocytes Auto (Unsp spec) [#/Vol] 1.18 10*3/uL 0.83-4.51 [facility] Work Phone: Bacteria identified Anaer cx Nom (Unsp spec)on 12-04-2021 Anaerobic Culture Prevotella bivia [facility] Work Phone: Anaerobic Culture Anaerobic cocci [facility] Work Phone: Bacteria identified Cx Nom ( Wound)on 12-04-2021 Wound Culture Enterococcus faecalis [facility] Work Phone: Wound Culture Staphylococcus homin is hominis [facility] Work Phone: Wound Culture Corynebacterium amycolatum [facility] Work Phone: Wound Culture Streptococcus mitis/ oralis [facility] Work Phone: Wound Culture Actinomyces odontolyticus [facility] Work Phone: Basophil percentageon 2021 Basophils/100 WBC (Bld) 0.1 % 0-1 [facility] Work Phone: Bilirubin [Mass/Vol] 0.30 mg/dL 0.20-1.00 [facility] Work Phone: Comment on above: For patients on eltr ombopag therapy, use of Dimension [place] TBIL is not recommended. Chloride [Moles/Vol] 110 mmol/L 98-107 [facility] Work Phone: Eosinophils/100 WBC (Bld) 0.4 % 0-5 [facility] Work Phone: Glucose [Mass/Vol] 211 mg/dL 74-106 [facility] Work Phone: Comment on above: Glucose result great er than or equal to 200 mg/dLsuggests DIABETES MELLITUS per A.D.A. criteria. Neutrophils (Bld) [#/Vol] 6.1 10*3/uL 2.0-7.7 [facility] Work Phone: Neutrophils/100 WBC (Bld) 75.1 % 47-70 [facility] Work Phone: Potassium [Moles/Vol] 4.6 mmol/L 3.5-5.1 [facility] Work Phone: Protein [Mass/Vol] 7.0 g/dL 6.4-8.2 [facility] Work Phone: Sodium [Moles/Vol] 139 mmol/L 136-145 [facility] Work Phone: WBC (Bld) [#/Vol] 8.1 10*3/uL 4.4-11.[facility] Work Phone: Blood erythrocytes count (nu mber/volume)on 12-04-2021 RBC (Bld) [#/Vol] 5.23 10*6/uL 4.6-6.2 [facility] Work Phone: [phone] Blood hemoglobin measurement (mass/volume)on 12-04-2021 Hemoglobin (Bld) [Mass/Vol] 15.9 g/dL 13.0-16.5 [facility] Work Phone: Blood lymphocytes/100 leukoc yteson 12-04-2021 Lymphocytes/100 WBC (Bld) 14.5 % 19-41 [facility] Work Phone: [phone] Blood monocytes/100 leukocyt eson 12-04-2021 Monocytes/100 WBC (Bld) 9.7 % 0-10 [facility] Work Phone: Blood platelet mean volumeon 12-04-2021 Platelet mean volume (Bld) [Entitic vol] 10.0 fL 6.2-12.0 [facility] Work Phone: Determination of erythrocyte mean corpuscular volume (MCV)on 12-04-2021 MCV (RBC) [Entitic vol] 93.1 fL 80-94 [facility] Work Phone: Erythrocyte sedimentation ra bk 12-04-2021 ESR (Bld) [Velocity] 38 mm/h 0-20 [facility]: Gram stain for investigation of transfusion reactionon 12-04-2021 Microscopic observation Gram stain Nom (Unsp spec) [facility] Work Phone: Hematocrit Auto (Bld) [Volum e fraction]on 12-04-2021 Hematocrit (Bld) [Volume fraction] 48.7 % 40-54 [facility] Work Phone: Laboratory - Chemistry and C hemistry - challengeon 12-04-2021 ALP [Catalytic activity/Vol] 161 U/L 45-117 [facility] Work Phone: ALT [Catalytic activity/Vol] 49 U/L 16-61 [facility] Work Phone: CO2 [Moles/Vol] 23.0 mmol/L 21.0-32.0 [facility] Work Phone: Globulin (S) [Mass/Vol] 3.6 g/dL 2.2-4.2 [facility] Work Phone: Urea nitrogen/Creatinine [Mass ratio] 29.3 mg/mg 10-20 [facility] Work Phone: Laboratory - Hematology and Cell countson 12-04-2021 Erythrocyte distribution width (RBC) [Entitic vol] 45.3 fL 35.1-43.9 [facility] Work Phone: Erythrocyte distribution width (RBC) [Ratio] 13.2 % 11.6-14.6 [facility] Work Phone: Immature granulocytes/100 WBC (Bld) 0.200 % 0.0-0.9 [facility] Work Phone: Comment on above: IG% - Immature Granu locytes (promyelocytes, myelocytes and metamyelocytes) > 1% indicates that a LEFT SHIFT is Present. MCH (RBC) [Entitic mass] 30.4 pg 27.0-32.0 [facility] Work Phone: Nucleated RBC/100 WBC (Bld) [Ratio] 0 % 0-5 [facility] Work Phone: MCHC Auto (RBC) [Mass/Vol]on 12-04-2021 MCHC (RBC) [Mass/Vol] 32.6 g/dL 32-36 [facility] Work Phone: No Panel Informationon 12-04 Estimated GFR (MDRD) Amer 72 mL/min >60 [facility] Work Phone: Comment on above: GFR Calc Estimated GFR (MDRD) Non-Af Amer 60 mL/min >60 [facility] Work Phone: Comment on above: Non- GFR Calc Methicillin-Resist S.aureus DNA PCR Negative Negative [facility] Work Phone: Platelets bldon 12-04-2021 Platelets (Bld) [#/Vol] 226 10*3/uL 150-450 [facility] Work Phone: Serum or plasma C reactive p rotein measurement (mass/volume)on 12-04-2021 CRP [Mass/Vol] 12.60 mg/L 0.0-3.0 [facility] Work Phone: Comment on above: C-Reactive Protein ( CRP) provides useful information for thediagnosis, therapy and monitoring of inflammatory processesand associated diseases. For the evaluation of Relative Riskfor Cardiovascular Disease, a High Sensitivity CRP (HSCRP)should be ordered. Serum or plasma albumin regi urement (mass/volume)on 12-04-2021 Albumin [Mass/Vol] 3.4 g/dL 3.2-5.0 [facility] Work Phone: Serum or plasma albumin/glob ulin mass ratioon 12-04-2021 Albumin/Globulin [Mass ratio] 0.9 {ratio} 0.9-2.4 [facility] Work Phone: Serum or plasma calcium regi urement (mass/volume)on 12-04-2021 Calcium [Mass/Vol] 9.2 mg/dL 8.5-10.1 [facility] Work Phone: Serum or plasma creatinine m easurement (mass/volume)on 12-04-2021 Creatinine [Mass/Vol] 1.33 mg/dL 0.70-1.30 [facility] Work Phone: Comment on above: The validity of the calculated GFR & GFRAA in patients over 70 years has not been determined. Clinical correlation is essential. Serum or plasma urea nitroge n measurement (mass/volume)on 12-04-2021 Urea nitrogen [Mass/Vol] 39 mg/dL 7-18 [facility] Work Phone: Staphylococcus aureus DNA de tection by probe and target amplification methodon 12-04-2021 S. aureus DNA CARMEN+probe Ql (Unsp spec) Positive Negative [facility] Work Phone: Thin prep Papanicolaou smear with manual screeningon 12-04-2021 Thin prep Papanicolaou smear with manual screening 31 U/L 15-37 [facility] Work Phone: Thin prep Papanicolaou smear with manual screening 6 5-15 [facility] Work Phone: Whole blood hemoglobin A1c/t otal hemoglobin ratio (mass fraction)on 12-04-2021 HbA1c (Bld) [Mass fraction] 8.1 % 3.8-5.6 [facility] Work Phone: Comment on above: Normal < 5.7 % Predi abetic 5.7 - 6.4 % Diabetic >or= 6.5 % Please note range changes. Absolute lymphocyte counton 09-20-2021 Lymphocytes Auto (Unsp spec) [#/Vol] 0.44 10*3/uL 0.83-4.51 [facility] Work Phone: Basophil percentageon 2021 Basophils/100 WBC (Bld) 0.2 % 0-1 [facility] Work Phone: Chloride [Moles/Vol] 113 mmol/L 98-107 [facility] Work Phone: Eosinophils/100 WBC (Bld) 0.0 % 0-5 [facility] Work Phone: Glucose [Mass/Vol] 241 mg/dL 74-106 [facility] Work Phone: Comment on above: Glucose result great er than or equal to 200 mg/dLsuggests DIABETES MELLITUS per A.D.A. criteria.Please note revised GLUCOSE reference range effective 2017. Neutrophils (Bld) [#/Vol] 10.5 10*3/uL 2.0-7.7 [facility] Work Phone: Neutrophils/100 WBC (Bld) 90.2 % 47-70 [facility] Work Phone: Potassium [Moles/Vol] 4.9 mmol/L 3.5-5.1 [facility] Work Phone: Sodium [Moles/Vol] 136 mmol/L 136-145 [facility] Work Phone: WBC (Bld) [#/Vol] 11.6 10*3/uL 4.4-11.0 [facility] Work Phone: Blood erythrocytes count (nu mber/volume)on 09-20-2021 RBC (Bld) [#/Vol] 5.74 10*6/uL 4.6-6.2 [facility] Work Phone: Blood hemoglobin measurement (mass/volume)on 09-20-2021 Hemoglobin (Bld) [Mass/Vol] 16.9 g/dL 13.0-16.5 [facility] Work Phone: Blood lymphocytes/100 leukoc yteson 09-20-2021 Lymphocytes/100 WBC (Bld) 3.8 % 19-41 [facility] Work Phone: Blood monocytes/100 leukocyt eson 09-20-2021 Monocytes/100 WBC (Bld) 5.4 % 0-10 [facility] Work Phone: Blood platelet mean volumeon 09-20-2021 Platelet mean volume (Bld) [Entitic vol] 11.8 fL 6.2-12.0 [facility] Work Phone: Determination of erythrocyte mean corpuscular volume (MCV)on 09-20-2021 MCV (RBC) [Entitic vol] 92.3 fL 80-94 [facility] Work Phone: Glucose Glucometer (BldC) [M ass/Vol]on 09-20-2021 Glucose [Mass/Vol] 294 mg/dL 70-110 [facility] Work Phone: Comment on above: MANAGEMENT OF PATIEN T CARE PER NURSING PROTOCOL Hematocrit Auto (Bld) [Volum e fraction]on 09-20-2021 Hematocrit (Bld) [Volume fraction] 53.0 % 40-54 [facility] Work Phone: Laboratory - Chemistry and C hemistry - challengeon 09-20-2021 CO2 [Moles/Vol] 16.0 mmol/L 21.0-32.0 [facility] Work Phone: Urea nitrogen/Creatinine [Mass ratio] 34.2 mg/mg 10-20 [facility] Work Phone: Laboratory - Hematology and Cell countson 09-20-2021 Erythrocyte distribution width (RBC) [Entitic vol] 39.8 fL 35.1-43.9 [facility] Work Phone: Erythrocyte distribution width (RBC) [Ratio] 11.7 % 11.6-14.6 [facility] Work Phone: Immature granulocytes/100 WBC (Bld) 0.400 % 0.0-0.9 [facility] Work Phone: Comment on above: IG% - Immature Granu locytes (promyelocytes, myelocytes and metamyelocytes) > 1% indicates that a LEFT SHIFT is Present. MCH (RBC) [Entitic mass] 29.4 pg 27.0-32.0 [facility] Work Phone: Nucleated RBC/100 WBC (Bld) [Ratio] 0 % 0-5 [facility] Work Phone: MCHC Auto (RBC) [Mass/Vol]on 09-20-2021 MCHC (RBC) [Mass/Vol] 31.9 g/dL 32-36 [facility] Work Phone: No Panel Informationon 09-20 Estimated Creatinine Clearance Calc 51.93 ml/min [facility] Work Phone: Estimated GFR (MDRD) Amer 58 mL/min >60 [facility] Work Phone: Comment on above: GFR Calc Estimated GFR (MDRD) Non-Af Amer 48 mL/min >60 [facility] Work Phone: Comment on above: Non- GFR Calc Platelets bldon 09-20-2021 Platelets (Bld) [#/Vol] 154 10*3/uL 150-450 [facility] Work Phone: Serum or plasma calcium regi urement (mass/volume)on 09-20-2021 Calcium [Mass/Vol] 7.7 mg/dL 8.5-10.1 [facility] Work Phone: Serum or plasma creatinine m easurement (mass/volume)on 09-20-2021 Creatinine [Mass/Vol] 1.61 mg/dL 0.70-1.30 [facility] Work Phone: Comment on above: The validity of the calculated GFR & GFRAA in patients over 70 years has not been determined. Clinical correlation is essential. Serum or plasma urea nitroge n measurement (mass/volume)on 09-20-2021 Urea nitrogen [Mass/Vol] 55 mg/dL 7-18 [facility] Work Phone: Thin prep Papanicolaou smear with manual screeningon 09-20-2021 Thin prep Papanicolaou smear with manual screening 7 5-15 [facility] Work Phone: Blood mireya cells detection b y light microscopyon 09-19-2021 [place] cells LM Ql (Bld) 1+ Wo freddy [facility] Work Phone: Basophil percentageon 2021 Bilirubin [Mass/Vol] 0.50 mg/dL 0.20-1.[address] [facility] [address] [facility] Work Phone: Comment on above: For patients on eltr ombopag therapy, use of Dimension [place] TBIL is not recommended. Lactate [Moles/Vol] 1.2 mmol/L 0.4-2.0 [facility] Work Phone: Protein [Mass/Vol] 5.8 g/dL 6.4-8.[facility] Work Phone: Laboratory - Chemistry and C hemistry - challengeon 09-18-2021 ALP [Catalytic activity/Vol] 138 U/L 45-117 [facility] Work Phone: ALT [Catalytic activity/Vol] 76 U/L 16-61 [facility] Work Phone: Globulin (S) [Mass/Vol] 3.1 g/dL 2.2-4.2 [facility] Work Phone: Serum or plasma albumin regi urement (mass/volume)on 09-18-2021 Albumin [Mass/Vol] 2.7 g/dL 3.2-5.0 [facility] Work Phone: Serum or plasma albumin/glob ulin mass ratioon 09-18-2021 Albumin/Globulin [Mass ratio] 0.9 {ratio} 0.9-2.4 [facility] Work Phone: Thin prep Papanicolaou smear with manual screeningon 09-18-2021 Thin prep Papanicolaou smear with manual screening 54 U/L 15-37 [facility] Work Phone: Blood manual differential co mment interpretation (narrative result)on 09-17-2021 Manual differential comment Vernon (Bld) [Interp] SCANNED [facility] Work Phone: Blood platelet adequacy dete ction by light microscopyon 09-17-2021 Platelets LM Ql (Bld) SLT DEC [facility] Work [facility]: Direct bilirubinon 2 Bilirubin.direct [Mass/Vol] 0.25 mg/dL 0.00-0.30 [facility] Work Phone: Laboratory - Microbiology an d Antimicrobial susceptibilityon 09-17-2021 Bacteria identified Cx Nom (Bld) No growth in 5 days. [facility] Work Phone: No Panel Informationon 09-17 D-Dimer Quantitative (PE/DVT) 1.02 FEU/ug/m 0.27-0.49 [facility] Work Phone: Comment on above: D-Dimer ELEVATED (>0 .49): Additional studies and clinicalassessments are indicated to conclude diagnosis of:Deep Vein Thrombosis (DVT) or Pulmonary Embolism (PE)CRITICAL VALUE VERIFIED. CALLED TO POPEYE PEREZ RN09/17/21 2144 Sarah Cuelalr.RESULTS READ BACK BY SAME. Troponin I High Sensitivity 21 pg/mL 3.0-78.0 [facility] Work Phone: Comment on above: Please Note: New Isha t Units and Gender Specific Reference Ranges. For more information see Policy Stat Procedure [place] High Sensitivity Troponin (TNIH) and attachments. RBC morphologyon 09-17-2021 RBC morphology finding Nom (Bld) NORM C+C NORMAL NORM C&C [facility] Work Phone: Absolute lymphocyte counton 09-14-2021 Lymphocytes Auto (Unsp spec) [#/Vol] 0.54 10*3/uL 0.83-4.51 [facility] Work Phone: Basophil percentageon 2021 Basophil percentage 0 SEEN /hpf [facility] Work Phone: Basophils/100 WBC (Bld) 0.2 % 0-1 [facility] Work Phone: Chloride [Moles/Vol] 107 mmol/L 98-107 [facility] Work Phone: Eosinophils/100 WBC (Bld) 0.2 % 0-5 [facility] Work Phone: Glucose [Mass/Vol] 98 mg/dL 74-106 [facility] Work Phone: Comment on above: Please note revised GLUCOSE reference range effective 2017. Lactate [Moles/Vol] 1.1 mmol/L 0.4-2.0 [facility] Work Phone: Neutrophils (Bld) [#/Vol] 4.4 10*3/uL 2.0-7.7 [facility] Work Phone: Neutrophils/100 WBC (Bld) 79.3 % 47-70 [facility] Work Phone: [phone] Potassium [Moles/Vol] 4.3 mmol/L 3.5-5.1 [facility] Work Phone: Sodium [Moles/Vol] 139 mmol/L 136-145 [facility] Work Phone: [phone] WBC (Bld) [#/Vol] 5.5 10*3/uL 4.4-11.0 [facility] Work Phone: Bilirubin Test strip Ql (U)o n 09-14-2021 Bilirubin Ql (U) Negative Negative [facility] Work Phone: Blood erythrocytes count (nu mber/volume)on 09-14-2021 RBC (Bld) [#/Vol] 5.61 10*6/uL 4.6-6.2 [facility]: Blood hemoglobin measurement (mass/volume)on 09-14-2021 Hemoglobin (Bld) [Mass/Vol] 17.2 g/dL 13.0-16.5 [facility] Work Phone: Blood lymphocytes/100 leukoc yteson 09-14-2021 Lymphocytes/100 WBC (Bld) 9.9 % 19-41 [facility] Work Phone: Blood manual differential co mment interpretation (narrative result)on 09-14-2021 Manual differential comment [place] (Bld) [Interp] SCANNED [facility] Work Phone: Blood monocytes/100 leukocyt eson 09-14-2021 Monocytes/100 WBC (Bld) 9.9 % 0-10 [facility] Work Phone: Blood platelet mean volumeon 09-14-2021 Platelet mean volume (Bld) [Entitic vol] 11.3 fL 6.2-12.0 [facility] Work Phone: Determination of erythrocyte mean corpuscular volume (MCV)on 09-14-2021 MCV (RBC) [Entitic vol] 94.1 fL 80-94 [facility] Work Phone: Hematocrit Auto (Bld) [Volum e fraction]on 09-14-2021 Hematocrit (Bld) [Volume fraction] 52.8 % 40-54 [facility] Work Phone: Ketones Test strip Ql (U)on 09-14-2021 Ketones Ql (U) Negative Negative [facility] Work Phone: Laboratory - Chemistry and C hemistry - challengeon 09-14-2021 CO2 [Moles/Vol] 24.0 mmol/L 21.0-32.0 [facility] Work Phone: Urea nitrogen/Creatinine [Mass ratio] 11.9 mg/mg 10-20 [facility] Work Phone: Laboratory - Hematology and Cell countson 09-14-2021 Erythrocyte distribution width (RBC) [Entitic vol] 40.8 fL 35.1-43.9 [facility] Work Phone: Erythrocyte distribution width (RBC) [Ratio] 11.8 % 11.6-14.6 [facility] Work Phone: Immature granulocytes/100 WBC (Bld) 0.500 % 0.0-0.9 [facility] Work Phone: Comment on above: IG% - Immature Granu locytes (promyelocytes, myelocytes and metamyelocytes) > 1% indicates that a LEFT SHIFT is Present. MCH (RBC) [Entitic mass] 30.7 pg 27.0-32.0 [facility] Work Phone: Nucleated RBC/100 WBC (Bld) [Ratio] 0 % 0-5 [facility] Work Phone: Laboratory - Microbiology an d Antimicrobial susceptibilityon 09-14-2021 Bacteria identified Cx Nom (Bld) No growth in 5 days. [facility] Work Phone: MCHC Auto (RBC) [Mass/Vol]on 09-14-2021 MCHC (RBC) [Mass/Vol] 32.6 g/dL 32-36 [facility] Work Phone: Mucus LM Ql (Urine sed)on Mucus Ql (Urine sed) 0 SEEN /hpf [facility] Work Phone: Nitrite Test strip Ql (U)on 09-14-2021 Nitrite Ql (U) Negative Negative [facility] Work Phone: No Panel Informationon 09-14 D-Dimer Quantitative (PE/DVT) 0.70 FEU/ug/m 0.27-0.49 [facility] Work Phone: Comment on above: CRITICAL VALUE VERIF IED. CALLED TO BHAVESH MOON09/14/21 0935 Ferdinand Mike.RESULTS READ BACK BY SAME . D-Dimer ELEVATED (>0.49): Additional studies and clinicalassessments are indicated to conclude diagnosis of:Deep Vein Thrombosis (DVT) or Pulmonary Embolism (PE) Estimated Creatinine Clearance Calc 47.50 ml/min [facility] Work Phone: Estimated GFR (MDRD) Amer 52 mL/min >60 [facility] Work Phone: Comment on above: GFR Calc Estimated GFR (MDRD) Non-Af Amer 43 mL/min >60 [facility] Work Phone: Comment on above: Non- GFR Calc Troponin I High Sensitivity 24 pg/mL 3.0-78.0 [facility] Work Phone: Comment on above: Please Note: New Isha t Units and Gender Specific Reference Ranges. For more information see Policy Stat Procedure [place] High Sensitivity Troponin (TNIH) and attachments. SARS-CoV-2 Antigen (Rapid) SARS-CoV-2 (COVID 19) [facility] Work Phone: Platelets bldon 09-14-2021 Platelets (Bld) [#/Vol] 144 10*3/uL 150-450 [facility] Work Phone: Protein Test strip Ql (U)on 09-14-2021 Protein Ql (U) 15 mg/dl Negative [facility] Work Phone: Serum or plasma calcium regi urement (mass/volume)on 09-14-2021 Calcium [Mass/Vol] 9.1 mg/dL 8.5-10.1 [facility] Work Phone: Serum or plasma creatinine m easurement (mass/volume)on 09-14-2021 Creatinine [Mass/Vol] 1.76 mg/dL 0.70-1.30 [facility] Work Phone: Comment on above: The validity of the calculated GFR & GFRAA in patients over 70 years has not been determined. Clinical correlation is essential. Serum or plasma urea nitroge n measurement (mass/volume)on 09-14-2021 Urea nitrogen [Mass/Vol] 21 mg/dL 7-18 [facility] Work Phone: Squamous epithelial cells de tection in urine sediment by light microscopyon 09-14-2021 Epithelial cells.squamous LM Ql (Urine sed) 0 SEEN /hpf [facility] Work Phone: Thin prep Papanicolaou smear with manual screeningon 09-14-2021 Thin prep Papanicolaou smear with manual screening 8 5-15 [facility] Work Phone: Urine blood detectionon RBC Ql (U) 250 /ul Negative [facility] Work Phone: RBC Ql (U) 5-10 SEEN /hpf [facility] Work Phone: Urine clarityon 09-14-2021 Clarity (U) Clear Clear [facility] Work Phone: Urine color determinationon 09-14-2021 Color (U) Yellow Yellow [facility] Work Phone: Urine glucose detectionon Glucose Ql (U) Normal mg/dl Normal [facility] Work Phone: Urine leukocyte esterase det ection by dipstickon 09-14-2021 Leukocyte esterase Test strip Ql (U) Negative Negative [facility] Work Phone: Urine pHon 09-14-2021 pH (U) 5.0 [pH] [facility] Work Phone: [phone] Urine sediment bacteria coun t by microscopy (number/high power field)on 09-14-2021 Bacteria LM.HPF (Urine sed) [#/Area] 0 /[HPF] None Seen [facility] Work Phone: [phone] Urine specific gravity measu rementon 09-14-2021 Specific gravity (U) [Rel density] 1.015 [facility] Work Phone: Urobilinogen Auto test strip Ql (U)on 09-14-2021 Urobilinogen Ql (U) Normal mg/dl Normal [facility] Work Phone: Bacteria identified Anaer cx Nom (Unsp spec) Anaerobic Culture Prevotella bivia [facility] Work Phone: Anaerobic Culture Anaerobic cocci [facility] Work Phone: Anaerobic Culture Negative [facility] Work Phone: Bacteria identified Cx Nom ( Wound) Wound Culture Enterococcus faecalis [facility] Work Phone: Wound Culture Staphylococcus homin is hominis [facility] Work Phone: Wound Culture Corynebacterium amycolatum [facility] Work Phone: Wound Culture Streptococcus mitis/ oralis [facility] Work Phone: Wound Culture Actinomyces odontolyticus [facility] Work Phone: Wound Culture Staphylococcus aureus [facility] Work Phone: Wound Culture Escherichia coli [facility] Work Phone: Wound Culture Actinomyces species [facility] Work Phone: Wound Culture Strep anginosus [facility] Work Phone: Wound Culture Staphylococcus epidermidis [facility] Work Phone: Wound Culture Enterococcus casseliflavus (D) [facility] Work Phone: Wound Culture Turicella otitidis [facility] Work Phone: Gram stain for investigation of transfusion reaction Microscopic observation Gram stain Nom (Unsp spec) [facility] Work Phone: Laboratory - Microbiology an d Antimicrobial susceptibility Bacteria identified Cx Nom (Bld) No growth in 5 days. [facility] Work Phone: Vital Signs Date Time Vital Sign Value Performing Clinician Facility 05-14-2025 08:54-0400 Body height 172.7 cm Mariza Vences 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.[employer] Work Phone: [facility] 05-14-2025 08:54-0400 Body mass index (BMI) [Ratio] 25.34 kg/m2 Mariza Vences 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.[employer] Work Phone: [facility] 05-14-2025 08:54-0400 Body weight 75.6 kg Mariza Vences 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.[employer] Work Phone: [facility] 05-14-2025 08:54-0400 Diastolic blood pressure 66 mm[Hg] Mariza Vences 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.[employer] Work Phone: [facility] 05-14-2025 08:54-0400 Heart rate 106 /min Mariza Vences 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.[employer] Work Phone: [facility] 05-14-2025 08:54-0400 Systolic blood pressure 105 mm[Hg] Mariza Vences 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.[employer] Work Phone: [facility] 04-18-2025 02:50-0400 Body temperature 97.8 [degF] Dr. Zaida Gaston MD Work Phone: [facility] 04-18-2025 02:50-0400 Diastolic blood pressure 82 mm[Hg] Dr. Zaida Gaston MD Work Phone: [facility] 04-18-2025 02:50-0400 Heart rate 73 /min Dr. Zaida Gaston MD Work Phone: [facility] 04-18-2025 02:50-0400 Respiratory rate 16 /min Dr. Zaida Gaston MD Work Phone: 1(058)868-353865 [place] [address] 04-18-2025 02:50-0400 SaO2% (BldA) [Mass fraction] 99 % Dr. Zaida Gaston MD Work Phone: 8(155)530-585373 [place] [address] 04-18-2025 02:50-0400 Systolic blood pressure 137 mm[Hg] Dr. Zaida Gaston MD Work Phone: 9(609)650-306873 [place] [address] 04-15-2025 12:51-0400 Body height 172.[address] Zaida Gaston MD Work Phone: 4(468)263-329973 [place] [address] 04-15-2025 12:51-0400 Body mass index (BMI) [Ratio] 25.2 kg/m2 Dr. Zaida Gaston MD Work Phone: 2(400)307-608473 [place] [address] 04-15-2025 12:51-0400 Body weight 75.[address] Zaida Gaston MD Work Phone: 1(916)573-177173 [place] [address] 04-15-2025 12:00-0400 Diastolic blood pressure 96 mm[Hg] Dr. Zaida Gaston MD Work Phone: 7(323)134-314073 [place] [address] 04-15-2025 12:00-0400 Systolic blood pressure 136 mm[Hg] Dr. Zaida Gaston MD Work Phone: 4(752)547-502973 [place] [address] 04-15-2025 11:45-0400 Heart rate 95 /min Dr. Zaida Gaston MD Work Phone: 3(481)032-172973 [place] [address] 04-15-2025 11:45-0400 Respiratory rate 14 /min Dr. Zaida Gaston MD Work Phone: 7(520)945-347973 [place] [address] 04-15-2025 11:14-0400 Body temperature 98.9 [degF] Dr. Zaida Gaston MD Work Phone: 9(353)341-567373 [place] [address] 04-15-2025 11:14-0400 SaO2% (BldA) [Mass fraction] 95 % Dr. Zaida Gaston MD Work Phone: 3(563)972-071373 [place] [address] 04-14-2025 17:24-0400 Body height 172.[address] Zaida Gaston MD Work Phone: 4(653)123-003973 [place] [address] 04-14-2025 17:24-0400 Body mass index (BMI) [Ratio] 25.9 kg/m2 Dr. Zaida Gaston MD Work Phone: 2(889)719-931773 [place] [address] 04-14-2025 17:24-0400 Body weight 77.[address] Zaida Gaston MD Work Phone: 0(314)434-052773 [place] [address] 04-04-2025 16:33-0400 Body temperature 98.9 [degF] Dr. Zaida Gaston MD Work Phone: 0(048)434-458173 [place] [address] 04-04-2025 16:33-0400 Diastolic blood pressure 82 mm[Hg] Dr. Zaida Gaston MD Work Phone: 4(046)009-208573 [place] [address] 04-04-2025 16:33-0400 Heart rate 98 /min Dr. Zaida Gaston MD Work Phone: 0(664)461-912373 [place] [address] 04-04-2025 16:33-0400 Respiratory rate 16 /min Dr. Zaida Gaston MD Work Phone: 6(936)768-246773 [place] [address] 04-04-2025 16:33-0400 SaO2% (BldA) [Mass fraction] 99 % Dr. Zaida Gaston MD Work Phone: 5(179)570-851973 [place] [address] 04-04-2025 16:33-0400 Systolic blood pressure 143 mm[Hg] Dr. Zaida Gaston MD Work Phone: 0(783)558-077173 [place] [address] 04-04-2025 11:05-0400 Body height 172.[address] Zaida Gaston MD Work Phone: 8(394)431-227973 [place] [address] 04-04-2025 11:05-0400 Body mass index (BMI) [Ratio] 25.9 kg/m2 Dr. Zaida Gaston MD Work Phone: 2(954)277-436073 [place] [address] 04-04-2025 11:05-0400 Body weight 77.[address] Zaida Gaston MD Work Phone: 5(166)875-279773 [place] [address] 03-10-2025 20:48-0400 Body temperature 99.4 [degF] Dr. Zaida Gaston MD Work Phone: 9(044)411-261173 [place] [address] 03-10-2025 20:48-0400 Diastolic blood pressure 70 mm[Hg] Dr. Zaida Gaston MD Work Phone: 1(526)369-639473 [place] [address] 03-10-2025 20:48-0400 Heart rate 69 /min Dr. Zaida Gaston MD Work Phone: 2(063)848-411773 [place] [address] 03-10-2025 20:48-0400 Respiratory rate 18 /min Dr. Zaida Gaston MD Work Phone: 2(321)246-957773 [place] [address] 03-10-2025 20:48-0400 SaO2% (BldA) [Mass fraction] 97 % Dr. Zaida Gaston MD Work Phone: 5(976)430-086973 [place] [address] 03-10-2025 20:48-0400 Systolic blood pressure 110 mm[Hg] Dr. Zaida Gaston MD Work Phone: 0(029)565-814273 [place] [address] 03-10-2025 15:13-0400 Body mass index (BMI) [Ratio] 25.8 kg/m2 Dr. Zaida Gaston MD Work Phone: 6(324)322-372473 [place] [address] 03-10-2025 15:13-0400 Body weight 77.[address] Zaida Gaston MD Work Phone: 3(360)746-192473 [place] [address] 03-10-2025 11:27-0400 Body height 172.[address] Zaida Gaston MD Work Phone: 9(167)357-430873 [place] [address] 02-07-2025 16:05-0400 Diastolic blood pressure 89 mm[Hg] Dr. Zaida Gaston MD Work Phone: 8(199)646-621473 [place] [address] 02-07-2025 16:05-0400 Heart rate 89 /min Dr. Zaida Gaston MD Work Phone: 8(463)967-768673 [place] [address] 02-07-2025 16:05-0400 Respiratory rate 16 /min Dr. Zaida Gaston MD Work Phone: 7(941)369-409873 [place] [address] 02-07-2025 16:05-0400 SaO2% (BldA) [Mass fraction] 99 % Dr. Zaida Gaston MD Work Phone: 1(973)666-209573 [place] [address] 02-07-2025 16:05-0400 Systolic blood pressure 147 mm[Hg] Dr. Zaida Gaston MD Work Phone: 9(325)109-199073 [place] [address] 02-07-2025 13:09-0400 Body height 172.[address] Zaida Gaston MD Work Phone: 0(416)151-561973 [place] [address] 02-07-2025 13:09-0400 Body mass index (BMI) [Ratio] 26.4 kg/m2 Dr. Zaida Gaston MD Work Phone: 6(420)663-234473 [place] [address] 02-07-2025 13:09-0400 Body temperature 98.2 [degF] Dr. Zaida Gaston MD Work Phone: 4(197)780-527273 [place] [address] 02-07-2025 13:09-0400 Body weight 78.[address] Zaida Gaston MD Work Phone: 7(797)184-917073 [place] [address] 02-05-2025 11:13-0400 Body mass index (BMI) [Ratio] 27.59 kg/m2 Zaida Gaston MD Work Phone: 4(721)906-927712 [place] [address] 02-05-2025 11:13-0400 Body weight 82.28 kg Zaida Gaston MD Work Phone: 3(453)908-879812 [place] [address] 02-05-2025 11:13-0400 Diastolic blood pressure 68 mm[Hg] Zaida Gaston MD Work Phone: 9(815)177-728812 [place] [address] 02-05-2025 11:13-0400 Heart rate 93 /min Zaida Gaston MD Work Phone: 0(465)340-087906 [place] [address] 02-05-2025 11:13-0400 Respiratory rate 16 /min Zaida Gaston MD Work Phone: 3(644)722-692212 [place] [address] 02-05-2025 11:13-0400 SaO2% (BldA) [Mass fraction] 95 % Zaida Gaston MD Work Phone: 4(337)540-940406 [place] [address] 02-05-2025 11:13-0400 Systolic blood pressure 106 mm[Hg] Zaida Gaston MD Work Phone: 6(763)688-689206 [place] [address] 01-27-2025 02:59-0400 Body temperature 98.6 [degF] Dr. Zaida Gaston MD Work Phone: 2(627)666-337973 [place] [address] 01-27-2025 02:59-0400 Diastolic blood pressure 63 mm[Hg] Dr. Zaida Gaston MD Work Phone: 3(203)236-646773 [place] [address] 01-27-2025 02:59-0400 Heart rate 70 /min Dr. Zaida Gaston MD Work Phone: 7(179)286-069773 [place] [address] 01-27-2025 02:59-0400 Respiratory rate 17 /min Dr. Zaida Gaston MD Work Phone: 5(840)235-108673 [place] [address] 01-27-2025 02:59-0400 SaO2% (BldA) [Mass fraction] 97 % Dr. Zaida Gaston MD Work Phone: 8(745)350-679273 [place] [address] 01-27-2025 02:59-0400 Systolic blood pressure 89 mm[Hg] Dr. Zaida Gaston MD Work Phone: 7(172)988-181373 [place] [address] 01-26-2025 15:50-0400 Body mass index (BMI) [Ratio] 29 kg/m2 Dr. Zaida Gaston MD Work Phone: 6(174)787-035673 [place] [address] 01-26-2025 15:50-0400 Body weight 86.[address] Zaida Gaston MD Work Phone: 1(896)235-548173 [place] [address] 01-26-2025 15:47-0400 Body height 172.[address] Zaida Gaston MD Work Phone: 0(571)930-438773 [place] [address] 11-19-2024 17:47-0400 Body temperature 97.8 [degF] Dr. Zaida Gaston MD Work Phone: 0(213)416-065673 [place] [address] 11-19-2024 17:47-0400 Diastolic blood pressure 72 mm[Hg] Dr. Zaida Gaston MD Work Phone: 3(389)833-837073 [place] [address] 11-19-2024 17:47-0400 Heart rate 89 /min Dr. Zaida Gaston MD Work Phone: 7(209)691-842273 [place] [address] 11-19-2024 17:47-0400 Respiratory rate 18 /min Dr. Zaida Gaston MD Work Phone: 9(254)164-048473 [place] [address] 11-19-2024 17:47-0400 SaO2% (BldA) [Mass fraction] 95 % Dr. Zaida Gaston MD Work Phone: 0(852)742-796973 [place] [address] 11-19-2024 17:47-0400 Systolic blood pressure 105 mm[Hg] Dr. Zaida Gaston MD Work Phone: 4(360)213-436573 [place] [address] 11-19-2024 14:20-0400 Body height 172.[address] Zaida Gaston MD Work Phone: 8(357)546-583173 [place] [address] 11-19-2024 14:20-0400 Body mass index (BMI) [Ratio] 28.5 kg/m2 Dr. Zaida Gaston MD Work Phone: 9(482)696-571373 [place] [address] 11-19-2024 14:20-0400 Body weight 85.[address] Zaida Gaston MD Work Phone: 9(052)473-129373 [place] [address] 09-28-2024 14:59-0500 Body mass index (BMI) [Ratio] 29.04 kg/m2 Zaida Gaston MD Work Phone: 8(849)121-100512 [place] [address] 09-28-2024 14:59-0500 Body weight 86.64 kg Zaida Gaston MD Work Phone: 4(467)610-923412 [place] [address] 09-28-2024 14:59-0500 Diastolic blood pressure 72 mm[Hg] Zaida Gaston MD Work Phone: 2(586)674-517406 [place] [address] 09-28-2024 14:59-0500 Heart rate 95 /min Zaida Gaston MD Work Phone: 8(430)188-794606 [place] [address] 09-28-2024 14:59-0500 Respiratory rate 16 /min Zaida Gaston MD Work Phone: 0(324)890-256906 [place] [address] 09-28-2024 14:59-0500 Systolic blood pressure 120 mm[Hg] Zaida Gaston MD Work Phone: 2(854)352-160406 [place] [address] 07-28-2024 10:37-0500 Body mass index (BMI) [Ratio] 29.5 kg/m2 Dr. Zaida Gaston MD Work Phone: 5(060)104-879265 [place] [address] 07-28-2024 10:37-0500 Body weight 88.[address] Zaida Gaston MD Work Phone: 5(053)652-077665 [place] [address] 07-28-2024 10:37-0500 Diastolic blood pressure 68 mm[Hg] Dr. Zaida Gaston MD Work Phone: 9(617)340-865073 [place] [address] 07-28-2024 10:37-0500 Heart rate 84 /min Dr. Zaida Gaston MD Work Phone: 2(014)932-775473 [place] [address] 07-28-2024 10:37-0500 SaO2% (BldA) [Mass fraction] 95 % Dr. Zaida Gaston MD Work Phone: 2(368)625-017073 [place] [address] 07-28-2024 10:37-0500 Systolic blood pressure 109 mm[Hg] Dr. Zaida Gaston MD Work Phone: 6(441)073-611773 [place] [address] 06-18-2024 12:32-0400 Diastolic blood pressure 96 mm[Hg] Zaida Gaston MD Work Phone: 6(205)183-143806 [place] [address] 06-18-2024 12:32-0400 Systolic blood pressure 151 mm[Hg] Zaida Gaston MD Work Phone: 6(722)314-096706 [place] [address] 06-18-2024 11:29-0400 Body mass index (BMI) [Ratio] 30.77 kg/m2 Zaida Gaston MD Work Phone: 5(127)938-160306 [place] [address] 06-18-2024 11:29-0400 Body weight 91.81 kg Zaida Gaston MD Work Phone: 7(517)940-982506 [place] [address] 06-18-2024 11:29-0400 Heart rate 100 /min Zaida Gaston MD Work Phone: [facility] 06-18-2024 11:29-0400 SaO2% (BldA) [Mass fraction] 99 % Zaida Gaston MD Work Phone: [facility] 04-01-2024 13:35-0400 Diastolic blood pressure 83 mm[Hg] Lali Raman MD Work Phone: [facility] 04-01-2024 13:35-0400 Heart rate 95 /min Lali Raman MD Work Phone: [facility] 04-01-2024 13:35-0400 Respiratory rate 18 /min Lali Raman MD Work Phone: [facility] 04-01-2024 13:35-0400 SaO2% (BldA) [Mass fraction] 99 % Lali Raman MD Work Phone: [facility] 04-01-2024 13:35-0400 Systolic blood pressure 152 mm[Hg] Lali Raman MD Work Phone: [facility] 04-01-2024 12:55-0400 Body temperature 98.8 [degF] Lali Raman MD Work Phone: [facility] 04-01-2024 11:46-0400 Body height 172.7 cm Lali Raman MD Work Phone: [facility] 04-01-2024 11:46-0400 Body mass index (BMI) [Ratio] 29.95 kg/m2 Lali Raman MD Work Phone: [facility] 04-01-2024 11:46-0400 Body weight 89.36 kg Lali Raman MD Work Phone: [facility] 03-24-2024 16:04-0400 Body height 172.7 cm Nia Jacob 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.[employer] Work Phone: [facility] 03-24-2024 16:04-0400 Body mass index (BMI) [Ratio] 29.95 kg/m2 Nia Jacob 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.[employer] Work Phone: [facility] 03-24-2024 16:04-0400 Body temperature 97.9 [degF] Nia Jacob 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.[employer] Work Phone: [facility] 03-24-2024 16:04-0400 Body weight 89.36 kg Nia Jacob 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.[employer] Work Phone: [facility] 03-24-2024 16:04-0400 Diastolic blood pressure 60 mm[Hg] Nia Jacob 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.[employer] Work Phone: [facility] 03-24-2024 16:04-0400 Heart rate 105 /min Nia Jacob 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.[employer] Work Phone: [facility] 03-24-2024 16:04-0400 SaO2% (BldA) [Mass fraction] 95 % Nia Jacob 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.[employer] Work Phone: [facility] 03-24-2024 16:04-0400 Systolic blood pressure 118 mm[Hg] Nia Jacob 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.[employer] Work Phone: [facility] 03-18-2024 17:31-0400 Body mass index (BMI) [Ratio] 30.26 kg/m2 Delia Older 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.[employer] Work Phone: [facility] 03-18-2024 17:31-0400 Body weight 90.27 kg Delia Older 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.[employer] Work Phone: [facility] 03-18-2024 17:31-0400 Diastolic blood pressure 72 mm[Hg] Delia Older 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.[employer] Work Phone: [facility] 03-18-2024 17:31-0400 Heart rate 102 /min Delia Older 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.[employer] Work Phone: [facility] 03-18-2024 17:31-0400 Respiratory rate 16 /min Delia Older 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.[employer] Work Phone: [facility] 03-18-2024 17:31-0400 SaO2% (BldA) [Mass fraction] 95 % Delia Older 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.[employer] Work Phone: [facility] 03-18-2024 17:31-0400 Systolic blood pressure 118 mm[Hg] Delia Older 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.[employer] Work Phone: [facility] 01-22-2024 16:40-0400 Body mass index (BMI) [Ratio] 30.72 kg/m2 Delia Older 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.[employer] Work Phone: [facility] 01-22-2024 16:40-0400 Body weight 91.63 kg Delia Older 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.[employer] Work Phone: [facility] 01-22-2024 16:40-0400 Diastolic blood pressure 78 mm[Hg] Delia Older 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.[employer] Work Phone: [facility] 01-22-2024 16:40-0400 Heart rate 97 /min Delia Older 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.[employer] Work Phone: [facility] 01-22-2024 16:40-0400 Respiratory rate 16 /min Delia Older 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.[employer] Work Phone: [facility] 01-22-2024 16:40-0400 SaO2% (BldA) [Mass fraction] 97 % Delia Older 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.[employer] Work Phone: [facility] 01-22-2024 16:40-0400 Systolic blood pressure 116 mm[Hg] Delia Older 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.[employer] Work Phone: [facility] 01-13-2024 13:33-0400 Body height 172.7 cm [employer] Work Phone: [facility] 01-13-2024 13:33-0400 Body mass index (BMI) [Ratio] 30.61 kg/m2 [employer] Work Phone: [facility] 01-13-2024 13:33-0400 Body temperature 97.7 [degF] [employer] Work Phone: [facility] 01-13-2024 13:33-0400 Body weight 91.3 kg [employer] Work Phone: [facility] 01-13-2024 13:33-0400 Diastolic blood pressure 73 mm[Hg] [employer] Work Phone: [facility] 01-13-2024 13:33-0400 Heart rate 104 /min [employer] Work Phone: [facility] 01-13-2024 13:33-0400 SaO2% (BldA) [Mass fraction] 98 % [employer] Work Phone: [facility] 01-13-2024 13:33-0400 Systolic blood pressure 127 mm[Hg] [employer] Work Phone: [facility] 01-02-2024 10:57-0400 Body height 172.[address] Zaida Gaston Work Phone: [facility] 01-02-2024 10:57-0400 Body mass index (BMI) [Ratio] 31.6 kg/m2 Dr. Zaida Gaston Work Phone: [facility] 01-02-2024 10:57-0400 Body temperature 98 [degF] Dr. Zaida Gaston Work Phone: [facility] 01-02-2024 10:57-0400 Body weight 94.[address] Zaida Gaston Work Phone: [facility] 01-02-2024 10:57-0400 Diastolic blood pressure 84 mm[Hg] Dr. Zaida Gaston Work Phone: [facility] 01-02-2024 10:57-0400 Heart rate 100 /min Dr. Zaida Gaston Work Phone: [facility] 01-02-2024 10:57-0400 Respiratory rate 18 /min Dr. Zaida Gaston Work Phone: [facility] 01-02-2024 10:57-0400 SaO2% (BldA) [Mass fraction] 93 % Dr. Zaida Gaston Work Phone: [facility] 01-02-2024 10:57-0400 Systolic blood pressure 135 mm[Hg] Dr. Zaida Gaston Work Phone: [facility] 11-26-2023 07:57-0400 Body height 172.7 cm Xiang Perez PA-C Work Phone: [facility] 11-26-2023 07:57-0400 Body weight 95.71 kg Xiang Denbow PA-C Work Phone: [facility] 11-26-2023 07:57-0400 Diastolic blood pressure 80 mm[Hg] Xinag Denbow PA-C Work Phone: [facility] 11-26-2023 07:57-0400 Heart rate 104 /min Xiang Denbow PA-C Work Phone: [facility] 11-26-2023 07:57-0400 Respiratory rate 12 /min Xiang Denbow PA-C Work Phone: [facility] 11-26-2023 07:57-0400 SaO2% (BldA) [Mass fraction] 98 % Xiang Denbow PA-C Work Phone: [facility] 11-26-2023 07:57-0400 Systolic blood pressure 140 mm[Hg] Xiang Denbow PA-C Work Phone: [facility] 11-11-2023 13:29-0500 Body mass index (BMI) [Ratio] 31.6 kg/m2 Dr. Zaida Gaston Work Phone: [facility] 11-11-2023 13:29-0500 Body weight 94.[address] Zaida Gaston Work Phone: [facility] 11-11-2023 13:29-0500 Diastolic blood pressure 64 mm[Hg] Dr. Zaida Gaston Work Phone: [facility] 11-11-2023 13:29-0500 Heart rate 94 /min Dr. Zaida Gaston Work Phone: [facility] 11-11-2023 13:29-0500 Respiratory rate 18 /min Dr. Zaida Gaston Work Phone: [facility] 11-11-2023 13:29-0500 SaO2% (BldA) [Mass fraction] 96 % Dr. Zaida Gaston Work Phone: 8(156)189-413965 [place] [address] 11-11-2023 13:29-0500 Systolic blood pressure 103 mm[Hg] Dr. Zaida Gaston Work Phone: 3(111)430-562865 [place] [address] 10-24-2023 10:41-0500 Body mass index (BMI) [Ratio] 32.6 kg/m2 Dr. Zaida Gaston Work Phone: 8(682)018-170065 [place] [address] 10-24-2023 10:41-0500 Body temperature 98.9 [degF] Dr. Zaida Gaston Work Phone: 9(666)367-819373 [place] [address] 10-24-2023 10:41-0500 Body weight 97.[address] Zaida Gaston Work Phone: 6(509)540-028873 [place] [address] 10-24-2023 10:41-0500 Diastolic blood pressure 86 mm[Hg] Dr. Zaida Gaston Work Phone: 8(685)628-877673 [place] [address] 10-24-2023 10:41-0500 Heart rate 86 /min Dr. Zaida Gaston Work Phone: 8(067)034-170273 [place] [address] 10-24-2023 10:41-0500 Respiratory rate 18 /min Dr. Zaida Gaston Work Phone: 1(920)935-237373 [place] [address] 10-24-2023 10:41-0500 SaO2% (BldA) [Mass fraction] 98 % Dr. Zaida Gaston Work Phone: 9(629)539-364065 [place] [address] 10-24-2023 10:41-0500 Systolic blood pressure 126 mm[Hg] Dr. Zaida Gaston Work Phone: [facility] 09-18-2023 14:37-0500 Body weight 90.72 kg Delia Older 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.[employer] Work Phone: [facility] 09-18-2023 14:37-0500 Diastolic blood pressure 76 mm[Hg] Delia Older 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.[employer] Work Phone: [facility] 09-18-2023 14:37-0500 Heart rate 96 /min Delia Older 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.[employer] Work Phone: [facility] 09-18-2023 14:37-0500 Respiratory rate 16 /min Delia Older 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.D[employer] Work Phone: [facility] 09-18-2023 14:37-0500 SaO2% (BldA) [Mass fraction] 98 % Delia Older 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.D[employer] Work Phone: [facility] 09-18-2023 14:37-0500 Systolic blood pressure 128 mm[Hg] Delia Older 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.D[employer] MA[employer] Work Phone: [facility] 08-20-2023 14:43-0500 Body weight 90.27 kg Oscar Mas PA-C Work Phone: [facility] 08-13-2023 16:08-0500 Body height 172.7 cm Oscar Mas PA-C Work Phone: [facility] 08-13-2023 16:08-0500 Body temperature 98.29 [degF] Oscar Mas PA-C Work Phone: [facility] 08-13-2023 16:08-0500 Body weight 90.63 kg Oscar Mas PA-C Work Phone: [facility] 08-13-2023 16:08-0500 Diastolic blood pressure 60 mm[Hg] Oscar Mas PA-C Work Phone: [facility] 08-13-2023 16:08-0500 Heart rate 98 /min Oscar Mas PA-C Work Phone: [facility] 08-13-2023 16:08-0500 Respiratory rate 14 /min Oscar Mas PA-C Work Phone: [facility] 08-13-2023 16:08-0500 SaO2% (BldA) [Mass fraction] 97 % Oscar Mas PA-C Work Phone: [facility] 08-13-2023 16:08-0500 Systolic blood pressure 108 mm[Hg] Oscar Mas PA-C Work Phone: [facility] 07-15-2023 14:14-0500 Body height 172.7 cm [employer] Work Phone: [facility] 07-15-2023 14:14-0500 Body temperature 97 [degF] [employer] Work Phone: [facility] 07-15-2023 14:14-0500 Body weight 92.85 kg [employer] Work Phone: [facility] 07-15-2023 14:14-0500 Diastolic blood pressure 78 mm[Hg] [employer] Work Phone: [facility] 07-15-2023 14:14-0500 Heart rate 82 /min [employer] Work Phone: [facility] 07-15-2023 14:14-0500 SaO2% (BldA) [Mass fraction] 100 % [employer] Work Phone: [facility] 07-15-2023 14:14-0500 Systolic blood pressure 116 mm[Hg] [employer] Work Phone: [facility] 05-21-2023 15:10-0400 Body weight 92.99 kg Xiang Denbow PA-C Work Phone: [facility] 05-21-2023 15:10-0400 Diastolic blood pressure 83 mm[Hg] Xiang Denbow PA-C Work Phone: [facility] 05-21-2023 15:10-0400 Heart rate 96 /min Xiang Denbow PA-C Work Phone: [facility] 05-21-2023 15:10-0400 Respiratory rate 16 /min Xiang Denbow PA-C Work Phone: [facility] 05-21-2023 15:10-0400 Systolic blood pressure 132 mm[Hg] Xiang Denbow PA-C Work Phone: [facility] 03-14-2023 07:00-0400 Respiratory rate 16 /min Dr. Zaida Gaston Work Phone: [facility] 03-14-2023 03:49-0400 Diastolic blood pressure 74 mm[Hg] Dr. Zaida Gaston Work Phone: [facility] 03-14-2023 03:49-0400 Heart rate 69 /min Dr. Zaida Gaston Work Phone: 4(906)075-330865 [place] [address] 03-14-2023 03:49-0400 Inhaled oxygen flow rate 97 L/min Dr. Zaida Gaston Work Phone: 7(276)852-142073 [place] [address] 03-14-2023 03:49-0400 Systolic blood pressure 130 mm[Hg] Dr. Zaida Gaston Work Phone: 5(350)535-565173 [place] [address] 03-14-2023 01:00-0400 SaO2% (BldA) [Mass fraction] 97 % Dr. Zaida Gaston Work Phone: 8(083)613-392673 [place] [address] 03-13-2023 22:22-0400 Body height 172.[address] Zaida Gaston Work Phone: 9(233)463-108673 [place] [address] 03-13-2023 22:22-0400 Body mass index (BMI) [Ratio] 33.2 kg/m2 Dr. Zaida Gaston Work Phone: 8(765)317-306273 [place] [address] 03-13-2023 22:22-0400 Body temperature 95.6 [degF] Dr. Zaida Gaston Work Phone: 3(984)498-936773 [place] [address] 03-13-2023 22:22-0400 Body weight [address] Zaida Gaston Work Phone: 2(080)737-638673 [place] [address] 02-25-2023 11:55-0400 Body height 172.7 cm Zaida Gaston MD Work Phone: 7(968)127-601606 [place] [address] 02-25-2023 11:55-0400 Body temperature 98.49 [degF] Zaida Gaston MD Work Phone: [facility] 02-25-2023 11:55-0400 Body weight 100.7 kg Zaida Gaston MD Work Phone: [facility] 02-25-2023 11:55-0400 Diastolic blood pressure 62 mm[Hg] Zaida Gaston MD Work Phone: 6(361)253-234006 [place] [address] 02-25-2023 11:55-0400 Heart rate 85 /min Zaida Gaston MD Work Phone: [facility] 02-25-2023 11:55-0400 Respiratory rate 12 /min Zaida Gaston MD Work Phone: [facility] 02-25-2023 11:55-0400 SaO2% (BldA) [Mass fraction] 96 % Zaida Gaston MD Work Phone: [facility] 02-25-2023 11:55-0400 Systolic blood pressure 130 mm[Hg] Zaida Gaston MD Work Phone: [facility] 02-21-2023 14:02-0400 Body mass index (BMI) [Ratio] 34.3 kg/m2 Dr. Zaida Gaston Work Phone: 0(781)529-129865 [place] [address] 02-21-2023 14:02-0400 Body weight 102.[address] Zaida Gaston Work Phone: 0(431)050-400465 [place] [address] 02-21-2023 14:02-0400 Diastolic blood pressure 62 mm[Hg] Dr. Zaida Gaston Work Phone: 5(842)367-106073 [place] [address] 02-21-2023 14:02-0400 Heart rate 80 /min Dr. Zaida Gaston Work Phone: 1(295)782-674865 [place] [address] 02-21-2023 14:02-0400 Respiratory rate 18 /min Dr. Zaida Gaston Work Phone: 0(480)447-087065 [place] [address] 02-21-2023 14:02-0400 SaO2% (BldA) [Mass fraction] 98 % Dr. Zaida Gaston Work Phone: 9(005)189-863265 [place] [address] 02-21-2023 14:02-0400 Systolic blood pressure 107 mm[Hg] Dr. Zaida Gaston Work Phone: 5(616)749-791873 [place] [address] 01-14-2023 09:37-0400 Body height 172.[address] Zaida Gaston Work Phone: 0(188)726-635465 [place] [address] 01-14-2023 09:37-0400 Body mass index (BMI) [Ratio] 35.3 kg/m2 Dr. Zaida Gaston Work Phone: [facility] 01-14-2023 09:37-0400 Body temperature 97.5 [degF] Dr. Zaida Gaston Work Phone: [facility] 01-14-2023 09:37-0400 Body weight 105.[address] Zaida Gaston Work Phone: [facility] 01-14-2023 09:37-0400 Diastolic blood pressure 72 mm[Hg] Dr. Zaida Gaston Work Phone: [facility] 01-14-2023 09:37-0400 Heart rate 91 /min Dr. Zaida Gaston Work Phone: [facility] 01-14-2023 09:37-0400 Respiratory rate 16 /min Dr. Zaida Gaston Work Phone: [facility] 01-14-2023 09:37-0400 SaO2% (BldA) [Mass fraction] 95 % Dr. Zaida Gaston Work Phone: [facility] 01-14-2023 09:37-0400 Systolic blood pressure 109 mm[Hg] Dr. Zaida Gaston Work Phone: [facility] 12-31-2022 15:29-0400 Body height 172.7 cm [facility] Work Phone: [facility] 12-31-2022 15:29-0400 Body temperature 98.71 [degF] [facility] Work Phone: [facility] 12-31-2022 15:29-0400 Body weight 102.51 kg [facility] Work Phone: [facility] 12-31-2022 15:29-0400 Diastolic blood pressure 65 mm[Hg] [facility] Work Phone: [facility] 12-31-2022 15:29-0400 Heart rate 96 /min [facility] Work Phone: [facility] 12-31-2022 15:29-0400 SaO2% (BldA) [Mass fraction] 96 % [facility] Work Phone: [facility] 12-31-2022 15:29-0400 Systolic blood pressure 145 mm[Hg] [facility] Work Phone: [facility] 11-23-2022 14:29-0400 Body temperature 97.39 [degF] Zaida Gaston MD Work Phone: [facility] 11-23-2022 14:29-0400 Body weight 107.05 kg Zaida Gaston MD Work Phone: [facility] 11-23-2022 14:29-0400 Diastolic blood pressure 72 mm[Hg] Zaida Gaston MD Work Phone: [facility] 11-23-2022 14:29-0400 Heart rate 86 /min Zaida Gaston MD Work Phone: [facility] 11-23-2022 14:29-0400 Respiratory rate 16 /min Zaida Gaston MD Work Phone: [facility] 11-23-2022 14:29-0400 SaO2% (BldA) [Mass fraction] 95 % Zaida Gaston MD Work Phone: [facility] 11-23-2022 14:29-0400 Systolic blood pressure 118 mm[Hg] Zaida Gaston MD Work Phone: [facility] 11-05-2022 20:03-0500 Body temperature 98.4 [degF] Dr. Zaida Gaston Work Phone: [facility] 11-05-2022 20:03-0500 Diastolic blood pressure 75 mm[Hg] Dr. Zaida Gaston Work Phone: [facility] 11-05-2022 20:03-0500 Heart rate 86 /min Dr. Zaida Gaston Work Phone: [facility] 11-05-2022 20:03-0500 Respiratory rate 16 /min Dr. Zaida Gaston Work Phone: 7(908)663-127873 [place] [address] 11-05-2022 20:03-0500 SaO2% (BldA) [Mass fraction] 98 % Dr. Zaida Gaston Work Phone: 3(902)009-769873 [place] [address] 11-05-2022 20:03-0500 Systolic blood pressure 147 mm[Hg] Dr. Zaida Gaston Work Phone: 8(001)380-780873 [place] [address] 11-02-2022 12:26-0500 Body height 172.[address] Zaida Gaston Work Phone: 2(150)738-262573 [place] [address] 11-02-2022 12:26-0500 Body weight 108.[address] Zaida Gaston Work Phone: 5(993)655-334773 [place] [address] 11-01-2022 17:43-0500 Inhaled oxygen flow rate 2 L/min Dr. Zaida Gaston Work Phone: 0(331)934-382573 [place] [address] 11-01-2022 11:06-0500 Body temperature 97.6 [degF] Dr. Zaida Gaston Work Phone: 0(299)060-806973 [place] [address] 11-01-2022 11:06-0500 Diastolic blood pressure 96 mm[Hg] Dr. Zaida Gaston Work Phone: 0(574)005-988273 [place] [address] 11-01-2022 11:06-0500 Heart rate 89 /min Dr. Zaida Gaston Work Phone: 4(481)951-289273 [place] [address] 11-01-2022 11:06-0500 Respiratory rate 16 /min Dr. Zaida Gaston Work Phone: 3(946)217-430473 [place] [address] 11-01-2022 11:06-0500 SaO2% (BldA) [Mass fraction] 96 % Dr. Zaida Gaston Work Phone: 2(116)047-618473 [place] [address] 11-01-2022 11:06-0500 Systolic blood pressure 160 mm[Hg] Dr. Zaida Gaston Work Phone: 8(583)485-228573 [place] [address] 11-01-2022 10:26-0500 Body height 172.[address] Zaida Gaston Work Phone: 2(299)085-138573 [place] [address] 11-01-2022 10:26-0500 Body mass index (BMI) [Ratio] 80.3 kg/m2 Dr. Zaida Gaston Work Phone: 8(449)900-710073 [place] [address] 11-01-2022 10:26-0500 Body weight 239.[address] Zaida Gaston Work Phone: 0(342)657-845473 [place] [address] 11-01-2022 07:52-0500 Body mass index (BMI) [Ratio] 34.2 kg/m2 Dr. Zaida Gaston Work Phone: 5(943)632-221873 [place] [address] 11-01-2022 07:52-0500 Body temperature 97.2 [degF] Dr. Zaida Gaston Work Phone: 5(612)714-214573 [place] [address] 11-01-2022 07:52-0500 Diastolic blood pressure 74 mm[Hg] Dr. Zaida Gaston Work Phone: 7(047)822-840973 [place] [address] 11-01-2022 07:52-0500 Heart rate 89 /min Dr. Zaida Gaston Work Phone: 0(395)345-024473 [place] [address] 11-01-2022 07:52-0500 Systolic blood pressure 135 mm[Hg] Dr. Zaida Gaston Work Phone: 5(151)830-522873 [place] [address] 10-18-2022 09:14-0500 Body mass index (BMI) [Ratio] 34.7 kg/m2 Dr. Zaida Gaston Work Phone: 8(703)592-966173 [place] [address] 10-18-2022 09:14-0500 Body temperature 96.3 [degF] Dr. Zaida Gaston Work Phone: 5(290)747-063673 [place] [address] 10-18-2022 09:14-0500 Body weight 106.[address] Zaida Gaston Work Phone: 6(980)578-553773 [place] [address] 10-18-2022 09:14-0500 Diastolic blood pressure 79 mm[Hg] Dr. Zaida Gaston Work Phone: 4(615)618-518173 [place] [address] 10-18-2022 09:14-0500 Heart rate 89 /min Dr. Zaida Gaston Work Phone: [facility] 10-18-2022 09:14-0500 Respiratory rate 20 /min Dr. Zaida Gaston Work Phone: [facility] 10-18-2022 09:14-0500 SaO2% (BldA) [Mass fraction] 91 % Dr. Zaida Gaston Work Phone: [facility] 10-18-2022 09:14-0500 Systolic blood pressure 129 mm[Hg] Dr. Zaida Gaston Work Phone: [facility] 10-18-2022 07:59-0500 Respiratory rate 16 /min Dr. Zaida Gaston Work Phone: [facility] 10-10-2022 00:28-0500 Body weight 102.[address] Zaida Gaston Work Phone: [facility] 10-04-2022 13:30-0500 Diastolic blood pressure 64 mm[Hg] [facility] Work Phone: [facility] 10-04-2022 13:30-0500 Heart rate 93 /min [facility] Work Phone: [facility] 10-04-2022 13:30-0500 Systolic blood pressure 103 mm[Hg] [facility] 09-27-2022 08:03-0500 Body mass index (BMI) [Ratio] 34.2 kg/m2 Dr. Zaida Gaston Work Phone: [facility] 09-27-2022 08:03-0500 Body temperature 96.9 [degF] Dr. Zaida Gaston Work Phone: [facility] 09-27-2022 08:03-0500 Diastolic blood pressure 77 mm[Hg] Dr. Zaida Gaston Work Phone: [facility] 09-27-2022 08:03-0500 Heart rate 92 /min Dr. Zaida Gaston Work Phone: [facility] 09-27-2022 08:03-0500 Respiratory rate 16 /min Dr. Zaida Gaston Work Phone: [facility] 09-27-2022 08:03-0500 Systolic blood pressure 117 mm[Hg] Dr. Zaida Gaston Work Phone: [facility] 09-24-2022 10:41-0500 Body height 172.7 cm [facility] Work Phone: [facility] 09-24-2022 10:41-0500 Body temperature 98.6 [degF] [facility] Work Phone: [facility] 09-24-2022 10:41-0500 Body weight 104.06 kg [facility] Work Phone: [facility] 09-24-2022 10:41-0500 Diastolic blood pressure 70 mm[Hg] [facility] Work Phone: [facility] 09-24-2022 10:41-0500 Heart rate 93 /min [facility] Work Phone: [facility] 09-24-2022 10:41-0500 SaO2% (BldA) [Mass fraction] 95 % [facility] Work Phone: [facility] 09-24-2022 10:41-0500 Systolic blood pressure 148 mm[Hg] [facility] Work Phone: [facility] 09-09-2022 00:22-0500 Body weight 102.[address] Zaida Gaston Work Phone: [facility] 09-06-2022 12:24-0500 Body mass index (BMI) [Ratio] 34.2 kg/m2 Dr. Zaida Gaston Work Phone: [facility] 09-06-2022 12:24-0500 Body temperature 95.8 [degF] Dr. Zaida Gaston Work Phone: [facility] 09-06-2022 12:24-0500 Diastolic blood pressure 72 mm[Hg] Dr. Zaida Gaston Work Phone: [facility] 09-06-2022 12:24-0500 Heart rate 69 /min Dr. Zaida Gaston Work Phone: 6(557)250-959273 [place] [address] 09-06-2022 12:24-0500 Systolic blood pressure 126 mm[Hg] Dr. Zaida Gaston Work Phone: 3(333)458-218773 [place] [address] 09-06-2022 10:25-0500 Body height 172.[address] Zaida Gaston Work Phone: 6(813)618-123873 [place] [address] 09-06-2022 10:25-0500 Body mass index (BMI) [Ratio] 34.2 kg/m2 Dr. Zaida Gaston Work Phone: 4(272)222-958573 [place] [address] 09-06-2022 10:25-0500 Body temperature 96.9 [degF] Dr. Zaida Gaston Work Phone: 4(156)116-588073 [place] [address] 09-06-2022 10:25-0500 Body weight 102.[address] Zaida Gaston Work Phone: 9(136)619-437873 [place] [address] 09-06-2022 10:25-0500 Diastolic blood pressure 87 mm[Hg] Dr. Zaida Gaston Work Phone: 0(565)134-685873 [place] [address] 09-06-2022 10:25-0500 Heart rate 83 /min Dr. Zaida Gaston Work Phone: 6(913)084-359673 [place] [address] 09-06-2022 10:25-0500 Respiratory rate 18 /min Dr. Zaida Gaston Work Phone: 3(438)409-857273 [place] [address] 09-06-2022 10:25-0500 SaO2% (BldA) [Mass fraction] 95 % Dr. Zaida Gaston Work Phone: 8(913)507-902673 [place] [address] 09-06-2022 10:25-0500 Systolic blood pressure 149 mm[Hg] Dr. Zaida Gaston Work Phone: 5(031)176-504173 [place] [address] 09-05-2022 11:05-0500 Respiratory rate 17 /min Dr. Zaida Gaston Work Phone: 6(906)196-517673 [place] [address] 08-28-2022 11:20-0500 Diastolic blood pressure 66 mm[Hg] Dr. Zaida Gaston Work Phone: 0(429)183-995365 [place] [address] 08-28-2022 11:20-0500 Heart rate 76 /min Dr. Zaida Gaston Work Phone: 2(914)812-911673 [place] [address] 08-28-2022 11:20-0500 Respiratory rate 12 /min Dr. Zaida Gaston Work Phone: 6(393)062-678873 [place] [address] 08-28-2022 11:20-0500 SaO2% (BldA) [Mass fraction] 94 % Dr. Zaida Gaston Work Phone: 8(105)071-352873 [place] [address] 08-28-2022 11:20-0500 Systolic blood pressure 115 mm[Hg] Dr. Zaida Gaston Work Phone: 4(855)104-419273 [place] [address] 08-28-2022 10:03-0500 Body height 172.[address] Zaida Gaston Work Phone: 8(886)837-857465 [place] [address] Work Phone: 08-28-2022 10:03-0500 Body mass index (BMI) [Ratio] 34.1 kg/m2 Dr. Zaida Gaston Work Phone: 5(363)037-161073 [place] [address] 08-28-2022 10:03-0500 Body temperature 96.7 [degF] Dr. Zaida Gaston Work Phone: 6(537)558-327273 [place] [address] 08-28-2022 10:03-0500 Body weight 101.[address] Zaida Gaston Work Phone: 0(233)522-851173 [place] [address] 08-28-2022 09:10-0500 Body temperature 97.4 [degF] Dr. Zaida Gaston Work Phone: 1(433)654-338465 [place] [address] Work Phone: 08-28-2022 09:10-0500 Diastolic blood pressure 87 mm[Hg] Dr. Zaida Gaston Work Phone: 7(707)429-415665 [place] [address] Work Phone: 08-28-2022 09:10-0500 Heart rate 75 /min Dr. Zaida Gaston Work Phone: [facility] Work Phone: 08-28-2022 09:10-0500 Respiratory rate 15 /min Dr. Zaida Gaston Work Phone: [facility] Work Phone: 08-28-2022 09:10-0500 Systolic blood pressure 155 mm[Hg] Dr. Zaida Gaston Work Phone: [facility] Work Phone: 08-25-2022 09:50-0500 Body temperature 98.29 [degF] Zaida Gaston MD Work Phone: [facility] 08-25-2022 09:50-0500 Body weight 101.61 kg Zaida Gaston MD Work Phone: [facility] 08-25-2022 09:50-0500 Diastolic blood pressure 72 mm[Hg] Zaida Gaston MD Work Phone: [facility] 08-25-2022 09:50-0500 Heart rate 84 /min Zaida Gaston MD Work Phone: [facility] 08-25-2022 09:50-0500 Respiratory rate 16 /min Zaida Gaston MD Work Phone: [facility] 08-25-2022 09:50-0500 Systolic blood pressure 134 mm[Hg] Zaida Gaston MD Work Phone: [facility] 08-23-2022 10:36-0500 Body mass index (BMI) [Ratio] 34.2 kg/m2 Dr. Zaida Gaston Work Phone: [facility] Work Phone: 08-17-2022 14:56-0500 Diastolic blood pressure 70 mm[Hg] Dr. Zaida Gaston Work Phone: [facility] 08-17-2022 14:56-0500 Systolic blood pressure 130 mm[Hg] Dr. Zaida Gaston Work Phone: [facility] 08-17-2022 14:55-0500 Body mass index (BMI) [Ratio] 34 kg/m2 Dr. Zaida Gaston Work Phone: 1(443)597-476865 [place] [address] 08-17-2022 14:55-0500 Body weight 101.[address] Zaida Gaston Work Phone: 2(157)327-204173 [place] [address] 08-17-2022 14:55-0500 Heart rate 92 /min Dr. Zaida Gaston Work Phone: 7(155)204-849573 [place] [address] 08-17-2022 14:55-0500 Respiratory rate 18 /min Dr. Zaida Gaston Work Phone: 3(012)376-586373 [place] [address] 08-17-2022 14:55-0500 SaO2% (BldA) [Mass fraction] 97 % Dr. Zaida Gaston Work Phone: 7(690)424-607073 [place] [address] 08-09-2022 00:26-0500 Body weight 102.[address] Zaida Gaston Work Phone: 4(042)121-695273 [place] [address] 08-08-2022 11:07-0500 Body temperature 97.3 [degF] Dr. Zaida Gaston Work Phone: 2(955)945-471473 [place] [address] 08-08-2022 11:07-0500 Diastolic blood pressure 71 mm[Hg] Dr. Zaida Gaston Work Phone: 0(142)321-238773 [place] [address] 08-08-2022 11:07-0500 Heart rate 86 /min Dr. Zaida Gsaton Work Phone: 9(274)991-337573 [place] [address] 08-08-2022 11:07-0500 Respiratory rate 17 /min Dr. Zaida Gaston Work Phone: 0(803)598-442473 [place] [address] 08-08-2022 11:07-0500 Systolic blood pressure 147 mm[Hg] Dr. Zaida Gaston Work Phone: 8(920)736-517373 [place] [address] 08-03-2022 11:24-0500 Body height 172.7 cm [facility] Work Phone: [facility] 08-03-2022 11:24-0500 Body temperature 98.91 [degF] [facility] Work Phone: [facility] 08-03-2022 11:24-0500 Body weight 101.33 kg [facility] Work Phone: [facility] 08-03-2022 11:24-0500 Diastolic blood pressure 64 mm[Hg] [facility] Work Phone: [facility] 08-03-2022 11:24-0500 Heart rate 82 /min [facility] Work Phone: [facility] 08-03-2022 11:24-0500 SaO2% (BldA) [Mass fraction] 94 % [facility] Work Phone: [facility] 08-03-2022 11:24-0500 Systolic blood pressure 117 mm[Hg] [facility] Work Phone: [facility] 07-26-2022 10:35-0500 Body mass index (BMI) [Ratio] 34.2 kg/m2 Dr. Zaida Gaston Work Phone: [facility] 07-13-2022 15:46-0400 Body height 172.7 cm Zaida Gaston MD Work Phone: [facility] 07-13-2022 15:46-0400 Body temperature 98.2 [degF] Zaida Gaston MD Work Phone: [facility] 07-13-2022 15:46-0400 Body weight 101.15 kg Zaida Gaston MD Work Phone: [facility] 07-13-2022 15:46-0400 Diastolic blood pressure 80 mm[Hg] Zaida Gaston MD Work Phone: [facility] 07-13-2022 15:46-0400 Heart rate 92 /min Zaida Gaston MD Work Phone: [facility] 07-13-2022 15:46-0400 Respiratory rate 14 /min Zaida Gaston MD Work Phone: [facility] 07-13-2022 15:46-0400 SaO2% (BldA) [Mass fraction] 96 % Zaida Gaston MD Work Phone: [facility] 07-13-2022 15:46-0400 Systolic blood pressure 152 mm[Hg] Zaida Gaston MD Work Phone: [facility] 07-10-2022 00:27-0400 Body weight 102.[address] Zaida Gaston Work Phone: [facility] 07-09-2022 15:36-0400 Body temperature 97.8 [degF] Dr. Zaida Gaston Work Phone: [facility] 07-09-2022 15:36-0400 Diastolic blood pressure 83 mm[Hg] Dr. Zaida Gaston Work Phone: [facility] 07-09-2022 15:36-0400 Heart rate 78 /min Dr. Zaida Gaston Work Phone: [facility] 07-09-2022 15:36-0400 Respiratory rate 20 /min Dr. Zaida Gaston Work Phone: [facility] 07-09-2022 15:36-0400 Systolic blood pressure 142 mm[Hg] Dr. Zaida Gaston Work Phone: [facility] 07-05-2022 11:55-0400 Body height 172.7 cm [facility] Work Phone: [facility] 07-05-2022 11:55-0400 Body temperature 98.2 [degF] [facility] Work Phone: [facility] 07-05-2022 11:55-0400 Body weight 99.79 kg [facility] Work Phone: [facility] 07-05-2022 11:55-0400 Diastolic blood pressure 65 mm[Hg] [facility] Work Phone: [facility] 07-05-2022 11:55-0400 Heart rate 83 /min [facility] Work Phone: [facility] 07-05-2022 11:55-0400 SaO2% (BldA) [Mass fraction] 96 % [facility] Work Phone: [facility] 07-05-2022 11:55-0400 Systolic blood pressure 114 mm[Hg] [facility] Work Phone: [facility] 06-28-2022 09:05-0400 Body mass index (BMI) [Ratio] 34.2 kg/m2 Dr. Zaida Gaston Work Phone: [facility] 06-09-2022 01:21-0400 Body weight 102.[address] Zaida Gaston Work Phone: [facility] 06-08-2022 11:37-0400 Body height 172.7 cm [facility] Work Phone: [facility] 06-08-2022 11:37-0400 Body temperature 99.3 [degF] [facility] Work Phone: [facility] 06-08-2022 11:37-0400 Body weight 96.62 kg [facility] Work Phone: [facility] 06-08-2022 11:37-0400 Diastolic blood pressure 72 mm[Hg] [facility] Work Phone: [facility] 06-08-2022 11:37-0400 Heart rate 100 /min [facility] Work Phone: [facility] 06-08-2022 11:37-0400 SaO2% (BldA) [Mass fraction] 97 % [facility] Work Phone: [facility] 06-08-2022 11:37-0400 Systolic blood pressure 133 mm[Hg] [facility] Work Phone: [facility] 06-07-2022 09:01-0400 Body mass index (BMI) [Ratio] 34.2 kg/m2 Dr. Zaida Gaston Work Phone: [facility] Work Phone: 06-07-2022 09:01-0400 Body temperature 97.8 [degF] Dr. Zaida Gaston Work Phone: [facility] Work Phone: 06-07-2022 09:01-0400 Diastolic blood pressure 73 mm[Hg] Dr. Zaida Gaston Work Phone: [facility] Work Phone: 06-07-2022 09:01-0400 Heart rate 63 /min Dr. Zaida Gaston Work Phone: [facility] Work Phone: 06-07-2022 09:01-0400 Systolic blood pressure 117 mm[Hg] Dr. Zaida Gaston Work Phone: [facility] Work Phone: 05-10-2022 10:22-0400 Respiratory rate 16 /min Dr. Zaida Gaston Work Phone: [facility] Work Phone: 05-10-2022 00:31-0400 Body weight 102.[address] Zaida Gaston Work Phone: [facility] Work Phone: 05-09-2022 13:36-0400 Body mass index (BMI) [Ratio] 34.2 kg/m2 Dr. Zaida Gaston Work Phone: [facility] Work Phone: 05-09-2022 13:36-0400 Body temperature 97.1 [degF] Dr. Zaida Gaston Work Phone: [facility] Work Phone: 05-09-2022 13:36-0400 Diastolic blood pressure 74 mm[Hg] Dr. Zaida Gaston Work Phone: [facility] Work Phone: 05-09-2022 13:36-0400 Heart rate 92 /min Dr. Zaida Gaston Work Phone: [facility] Work Phone: 05-09-2022 13:36-0400 Respiratory rate 16 /min Dr. Zaida Gaston Work Phone: [facility] Work Phone: 05-09-2022 13:36-0400 Systolic blood pressure 145 mm[Hg] Dr. Zaida Gaston Work Phone: [facility] Work Phone: 04-12-2022 09:08-0400 Body mass index (BMI) [Ratio] 34.2 kg/m2 Dr. Zaida Gaston Work Phone: [facility] Work Phone: 04-12-2022 09:08-0400 Body temperature 97.5 [degF] Dr. Zaida Gaston Work Phone: [facility] Work Phone: 04-12-2022 09:08-0400 Diastolic blood pressure 76 mm[Hg] Dr. Zaida Gaston Work Phone: [facility] Work Phone: 04-12-2022 09:08-0400 Heart rate 101 /min Dr. Zaida Gaston Work Phone: [facility] Work Phone: 04-12-2022 09:08-0400 Systolic blood pressure 124 mm[Hg] Dr. Zaida Gaston Work Phone: [facility] Work Phone: 04-10-2022 16:15-0400 Body height 172.7 cm Zaida Gaston MD Work Phone: [facility] 04-10-2022 16:15-0400 Body temperature 99.3 [degF] Zaida Gaston MD Work Phone: [facility] 04-10-2022 16:15-0400 Body weight 94.8 kg Zaida Gaston MD Work Phone: [facility] 04-10-2022 16:15-0400 Diastolic blood pressure 60 mm[Hg] Zaida Gaston MD Work Phone: [facility] 04-10-2022 16:15-0400 Heart rate 97 /min Zaida Gaston MD Work Phone: [facility] 04-10-2022 16:15-0400 Respiratory rate 12 /min Zaida Gaston MD Work Phone: [facility] 04-10-2022 16:15-0400 SaO2% (BldA) [Mass fraction] 95 % Zaida Gaston MD Work Phone: [facility] 04-10-2022 16:15-0400 Systolic blood pressure 122 mm[Hg] Zaida Gaston MD Work Phone: [facility] 04-09-2022 00:28-0400 Body weight 102.[address] Zaida Gaston Work Phone: [facility] Work Phone: 04-09-2022 00:28-0400 Respiratory rate 20 /min Dr. Zaida Gaston Work Phone: [facility] Work Phone: 04-05-2022 08:39-0400 Body mass index (BMI) [Ratio] 34.2 kg/m2 Dr. Zaida Gaston Work Phone: [facility] Work Phone: 04-05-2022 08:39-0400 Body temperature 98.4 [degF] Dr. Zaida Gaston Work Phone: [facility] Work Phone: 04-05-2022 08:39-0400 Diastolic blood pressure 82 mm[Hg] Dr. Zaida Gaston Work Phone: [facility] Work Phone: 04-05-2022 08:39-0400 Heart rate 95 /min Dr. Zaida Gaston Work Phone: [facility] Work Phone: 04-05-2022 08:39-0400 Respiratory rate 20 /min Dr. Zaida Gaston Work Phone: [facility] Work Phone: 04-05-2022 08:39-0400 Systolic blood pressure 186 mm[Hg] Dr. Zaida Gaston Work Phone: [facility] Work Phone: 03-28-2022 10:39-0400 Body temperature 98.2 [degF] Dr. Zaida Gaston Work Phone: [facility] Work Phone: 03-28-2022 10:39-0400 Diastolic blood pressure 87 mm[Hg] Dr. Zaida Gaston Work Phone: [facility] Work Phone: 03-28-2022 10:39-0400 Heart rate 85 /min Dr. Zaida Gaston Work Phone: [facility] Work Phone: 03-28-2022 10:39-0400 Respiratory rate 16 /min Dr. Zaida Gaston Work Phone: [facility] Work Phone: 03-28-2022 10:39-0400 SaO2% (BldA) [Mass fraction] 96 % Dr. Zaida Gaston Work Phone: [facility] Work Phone: 03-28-2022 10:39-0400 Systolic blood pressure 138 mm[Hg] Dr. Zaida Gaston Work Phone: [facility] Work Phone: 03-28-2022 06:00-0400 Body weight 96.[address] Zaida Gaston Work Phone: [facility] Work Phone: 03-27-2022 13:38-0400 Body height 172.[address] Zaida Gaston Work Phone: [facility] Work Phone: 03-24-2022 12:00-0400 Inhaled oxygen flow rate 2 L/min Dr. Zaida Gaston Work Phone: [facility] Work Phone: 03-24-2022 03:32-0400 Body mass index (BMI) [Ratio] 31.7 kg/m2 Dr. Zaida Gaston Work Phone: [facility] Work Phone: 03-24-2022 03:12-0400 Body temperature 100.2 [degF] Dr. Zaida Gaston Work Phone: [facility] Work Phone: 03-24-2022 03:12-0400 Diastolic blood pressure 61 mm[Hg] Dr. Zaida Gaston Work Phone: [facility] Work Phone: 03-24-2022 03:12-0400 Heart rate 107 /min Dr. Zaida Gaston Work Phone: [facility] Work Phone: 03-24-2022 03:12-0400 Respiratory rate 20 /min Dr. Zaida Gaston Work Phone: [facility] Work Phone: 03-24-2022 03:12-0400 SaO2% (BldA) [Mass fraction] 92 % Dr. Zaida Gaston Work Phone: [facility] Work Phone: 03-24-2022 03:12-0400 Systolic blood pressure 144 mm[Hg] Dr. Zaida Gaston Work Phone: [facility] Work Phone: 03-24-2022 01:02-0400 Body height 172.[address] Zaida Gaston Work Phone: [facility] Work Phone: 03-24-2022 01:02-0400 Body mass index (BMI) [Ratio] 36.1 kg/m2 Dr. Zaida Gaston Work Phone: [facility] Work Phone: 03-24-2022 01:02-0400 Body weight 107.[address] Zaida Gaston Work Phone: [facility] Work Phone: 03-13-2022 10:06-0400 Body mass index (BMI) [Ratio] 34.2 kg/m2 Dr. Zaida Gaston Work Phone: [facility] Work Phone: 03-13-2022 10:06-0400 Body temperature 98.2 [degF] Dr. Zaida Gaston Work Phone: [facility] Work Phone: 03-13-2022 10:06-0400 Diastolic blood pressure 77 mm[Hg] Dr. Zaida Gaston Work Phone: [facility] Work Phone: 03-13-2022 10:06-0400 Heart rate 89 /min Dr. Zaida Gaston Work Phone: [facility] Work Phone: 03-13-2022 10:06-0400 Respiratory rate 16 /min Dr. Zaida Gaston Work Phone: [facility] Work Phone: 03-13-2022 10:06-0400 Systolic blood pressure 137 mm[Hg] Dr. Zaida Gaston Work Phone: [facility] Work Phone: 03-09-2022 00:36-0400 Body weight 102.[address] Zaida Gaston Work Phone: [facility] Work Phone: 03-08-2022 14:11-0400 Body height 172.7 cm [facility] Work Phone: [facility] 03-08-2022 14:11-0400 Body temperature 97.59 [degF] [facility] Work Phone: [facility] 03-08-2022 14:11-0400 Body weight 99.16 kg [facility] Work Phone: [facility] 03-08-2022 14:11-0400 Diastolic blood pressure 72 mm[Hg] [facility] Work Phone: [facility] 03-08-2022 14:11-0400 Heart rate 88 /min [facility] Work Phone: [facility] 03-08-2022 14:11-0400 SaO2% (BldA) [Mass fraction] 100 % [facility] Work Phone: [facility] 03-08-2022 14:11-0400 Systolic blood pressure 145 mm[Hg] [facility] Work Phone: [facility] 03-06-2022 10:13-0400 Body mass index (BMI) [Ratio] 34.2 kg/m2 Dr. Zaida Gaston Work Phone: [facility] Work Phone: 03-06-2022 10:13-0400 Body temperature 96.9 [degF] Dr. Zaida Gaston Work Phone: [facility] Work Phone: 03-06-2022 10:13-0400 Diastolic blood pressure 83 mm[Hg] Dr. Zaida Gaston Work Phone: [facility] Work Phone: 03-06-2022 10:13-0400 Heart rate 83 /min Dr. Zaida Gaston Work Phone: [facility] Work Phone: 03-06-2022 10:13-0400 Systolic blood pressure 138 mm[Hg] Dr. Zaida Gaston Work Phone: [facility] Work Phone: 02-07-2022 01:03-0400 Body weight 102.[address] Zaida Gaston Work Phone: [facility] Work Phone: 02-07-2022 01:03-0400 Respiratory rate 16 /min Dr. Zaida Gaston Work Phone: [facility] Work Phone: 02-06-2022 10:03-0400 Body mass index (BMI) [Ratio] 34.2 kg/m2 Dr. Zaida Gaston Work Phone: [facility] Work Phone: 02-06-2022 10:03-0400 Body temperature 97.8 [degF] Dr. Zaida Gaston Work Phone: [facility] Work Phone: 02-06-2022 10:03-0400 Diastolic blood pressure 81 mm[Hg] Dr. Zaida Gaston Work Phone: [facility] Work Phone: 02-06-2022 10:03-0400 Heart rate 87 /min Dr. Zaida Gaston Work Phone: [facility] Work Phone: 02-06-2022 10:03-0400 Respiratory rate 16 /min Dr. Zaida Gaston Work Phone: [facility] Work Phone: 02-06-2022 10:03-0400 Systolic blood pressure 152 mm[Hg] Dr. Zaida Gaston Work Phone: [facility] Work Phone: 01-19-2022 10:41-0400 Body height 172.[address] Zaida Gaston Work Phone: [facility] Work Phone: 01-19-2022 10:41-0400 Body mass index (BMI) [Ratio] 33.8 kg/m2 Dr. Zaida Gaston Work Phone: [facility] Work Phone: 01-19-2022 10:41-0400 Body weight 100.[address] Zaida Gaston Work Phone: [facility] Work Phone: 01-19-2022 10:41-0400 Diastolic blood pressure 68 mm[Hg] Dr. Zaida Gaston Work Phone: [facility] Work Phone: 01-19-2022 10:41-0400 Heart rate 96 /min Dr. Zaida Gaston Work Phone: [facility] Work Phone: 01-19-2022 10:41-0400 Respiratory rate 16 /min Dr. Zaida Gaston Work Phone: [facility] Work Phone: 01-19-2022 10:41-0400 Systolic blood pressure 152 mm[Hg] Dr. Zaida Gaston Work Phone: [facility] Work Phone: 01-19-2022 10:41-0400 Body height 172.[address] Zaida Gaston Work Phone: [facility] Work Phone: 01-19-2022 10:41-0400 Body mass index (BMI) [Ratio] 33.8 kg/m2 Dr. Zaida Gaston Work Phone: [facility] Work Phone: 01-19-2022 10:41-0400 Body weight 100.[address] Zaida Gaston Work Phone: [facility] Work Phone: 01-19-2022 10:41-0400 Diastolic blood pressure 68 mm[Hg] Dr. Zaida Gaston Work Phone: [facility] Work Phone: 01-19-2022 10:41-0400 Heart rate 96 /min Dr. Zaida Gaston Work Phone: [facility] Work Phone: 01-19-2022 10:41-0400 Respiratory rate 16 /min Dr. Zaida Gaston Work Phone: [facility] Work Phone: 01-19-2022 10:41-0400 Systolic blood pressure 152 mm[Hg] Dr. Zaida Gaston Work Phone: [facility] Work Phone: 01-16-2022 09:46-0400 Body mass index (BMI) [Ratio] 34.2 kg/m2 Dr. Zaida Gaston Work Phone: [facility] Work Phone: 01-16-2022 09:46-0400 Body temperature 98.2 [degF] Dr. Zaida Gaston Work Phone: [facility] Work Phone: 01-16-2022 09:46-0400 Diastolic blood pressure 77 mm[Hg] Dr. Zaida Gaston Work Phone: [facility] Work Phone: 01-16-2022 09:46-0400 Heart rate 114 /min Dr. Zaida Gaston Work Phone: [facility] Work Phone: 01-16-2022 09:46-0400 Respiratory rate 16 /min Dr. Zaida Gaston Work Phone: [facility] Work Phone: 01-16-2022 09:46-0400 Systolic blood pressure 153 mm[Hg] Dr. Zaida Gaston Work Phone: [facility] Work Phone: 01-07-2022 00:44-0400 Body weight 102.[address] Zaida Gaston Work Phone: [facility] Work Phone: 01-02-2022 09:59-0400 Body mass index (BMI) [Ratio] 34.2 kg/m2 Dr. Zaida Gaston Work Phone: [facility] Work Phone: 12-26-2021 09:01-0400 Body height 172.[address] Zaida Gaston Work Phone: [facility] Work Phone: 12-26-2021 09:01-0400 Body temperature 96.8 [degF] Dr. Zaida Gaston Work Phone: [facility] Work Phone: 12-26-2021 09:01-0400 Body weight 102.[address] Zaida Gaston Work Phone: [facility] Work Phone: 12-26-2021 09:01-0400 Diastolic blood pressure 69 mm[Hg] Dr. Zadia Gaston Work Phone: [facility] Work Phone: 12-26-2021 09:01-0400 Heart rate 87 /min Dr. Zaida Gaston Work Phone: [facility] Work Phone: 12-26-2021 09:01-0400 Respiratory rate 18 /min Dr. Zaida Gaston Work Phone: [facility] Work Phone: 12-26-2021 09:01-0400 Systolic blood pressure 153 mm[Hg] Dr. Zaida Gaston Work Phone: [facility] Work Phone: 12-08-2021 11:57-0400 Body height 172.7 cm [facility] Work Phone: [facility] 12-08-2021 11:57-0400 Body temperature 99.19 [degF] [facility] Work Phone: [facility] 12-08-2021 11:57-0400 Body weight 99.79 kg [facility] Work Phone: [facility] 12-08-2021 11:57-0400 Diastolic blood pressure 81 mm[Hg] [facility] Work Phone: [facility] 12-08-2021 11:57-0400 Heart rate 84 /min [facility] Work Phone: [facility] 12-08-2021 11:57-0400 SaO2% (BldA) [Mass fraction] 97 % [facility] Work Phone: [facility] 12-08-2021 11:57-0400 Systolic blood pressure 150 mm[Hg] [facility] Work Phone: [facility] 09-20-2021 13:54-0500 Body temperature 97.3 [degF] Dr. Zaida Gaston Work Phone: [facility] Work Phone: 09-20-2021 13:54-0500 Diastolic blood pressure 58 mm[Hg] Dr. Zaida Gaston Work Phone: [facility] Work Phone: 09-20-2021 13:54-0500 Heart rate 77 /min Dr. Zaida Gaston Work Phone: [facility] Work Phone: 09-20-2021 13:54-0500 Respiratory rate 18 /min Dr. Zaida Gaston Work Phone: [facility] Work Phone: 09-20-2021 13:54-0500 SaO2% (BldA) [Mass fraction] 93 % Dr. Zaida Gaston Work Phone: [facility] Work Phone: 09-20-2021 13:54-0500 Systolic blood pressure 113 mm[Hg] Dr. Zaida Gaston Work Phone: [facility] Work Phone: 09-18-2021 09:55-0500 Body height 172.[address] Zaida Gaston Work Phone: [facility] Work Phone: 09-18-2021 09:55-0500 Body weight 91.[address] Zaida Gaston Work Phone: [facility] Work Phone: 09-17-2021 22:38-0500 Body mass index (BMI) [Ratio] 30.8 kg/m2 Dr. Zaida Gaston Work Phone: [facility] Work Phone: 09-14-2021 12:15-0500 Heart rate 88 /min Dr. Zaida Gaston Work Phone: [facility] Work Phone: 09-14-2021 12:15-0500 Respiratory rate 17 /min Dr. Zaida Gaston Work Phone: [facility] Work Phone: 09-14-2021 12:15-0500 SaO2% (BldA) [Mass fraction] 96 % Dr. Zaida Gaston Work Phone: [facility] Work Phone: 09-14-2021 07:11-0500 Body mass index (BMI) [Ratio] 33.2 kg/m2 Dr. Zaida Gaston Work Phone: [facility] Work Phone: 09-14-2021 07:11-0500 Body temperature 97 [degF] Dr. Zaida Gaston Work Phone: [facility] Work Phone: 09-14-2021 07:11-0500 Body weight [address] Zaida Gaston Work Phone: [facility] Work Phone: 09-14-2021 07:11-0500 Diastolic blood pressure 66 mm[Hg] Dr. Zaida Gaston Work Phone: [facility] Work Phone: 09-14-2021 07:11-0500 Systolic blood pressure 117 mm[Hg] Dr. Zaida Gaston Work Phone: [facility] Work Phone: Encounters Encounter Date Encounter Type Care Provider Facility Start: 05-14-2025 End: 05-14-2025 Office outpatient visit 25 minutes Mariza Vences 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.[employer] Work Phone: Urology Comment on above: Nephrolithiasis (Sandrine deep Dx); Kidney replaced by transplant (HCC) Start: 05-14-2025 ambulatory MARIZA VENCES Facility:[facility] Start: 05-13-2025 End: 05-13-2025 Telephone encounter Zaida Gaston MD Work Phone: NOC Comment on above: Transition Of Care Start: 05-05-2025 End: 05-10-2025 ambulatory Meganfarideh Montejo 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.DOUGH MAKER Work Phone: [facility] [place] Start: 05-04-2025 End: 05-04-2025 Telephone encounter Zaida Gaston MD Work Phone: NOC Comment on above: Transition Of Care Start: 04-21-2025 End: 04-21-2025 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 Start: 04-17-2025 Dr. Shruti Jara MD - [facility] Work Phone: Start: 04-16-2025 ambulatory Anila Flores Facility:[facility] Start: 04-16-2025 Dr. Anila Flores MD - [facility] Start: 04-15-2025 End: 04-18-2025 ambulatory Zaida Ganfranny Facility:[facility] Start: 04-15-2025 End: 04-18-2025 Evaluation and management of inpatient Dr. Shruti Jara MD -Medical Surgical 3 Work Phone: Start: 04-15-2025 End: 04-18-2025 Dr. Shruti Jara MD -Progressive Care Unit Work Phone: Start: 04-12-2025 End: 04-12-2025 Telephone encounter Verna Jensen [facility] Work Phone: [facility] Comment on above: Missed Appointment ( Primary care reschedule) Start: 04-07-2025 End: 04-07-2025 Telephone encounter Luzmaria Bagley MSW Navigation Start: 04-05-2025 End: 04-08-2025 Refill Zaida Gaston MD Work Phone: [facility] Start: 04-04-2025 End: 04-04-2025 Dr. Chuy Santiago MD -Emergency Departmen t Work Phone: Start: 04-04-2025 End: 04-04-2025 Emergency department patient visit Dr. Zaida Gaston MD Work Phone: -Emergency Department Work Phone: Start: 03-15-2025 End: 03-15-2025 Telephone encounter 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 APRN.DOUGH MAKER Work Phone: [facility] Comment on above: Medication Problem Follow Up Start: 03-10-2025 End: 03-10-2025 Dr. Byron Saldana DO -Emergency Departky nt Work Phone: Start: 03-10-2025 End: 03-10-2025 Emergency department patient visit Dr. Zaida Gaston MD Work Phone: -Emergency Department Work Phone: Start: 03-08-2025 End: 03-08-2025 Telephone encounter Verna Jensen [facility] Work Phone: [facility] Comment on above: Diabetes Start: 03-08-2025 End: 03-08-2025 ambulatory ZAIDA GASTON Facility:[facility] Start: 03-08-2025 End: 03-08-2025 Patient encounter procedure Verna Jensen [facility] Work Phone: [facility] Comment on above: Type 1 diabetes aggie itus on insulin therapy (HCC) (Primary Dx); Medication management Start: 03-08-2025 End: 03-08-2025 Telemedicine consultation with patient Verna Jensen [facility] Work Phone: [facility] Start: 02-25-2025 End: 02-25-2025 Telephone encounter Xiang Deutsch RN Angio Comment on above: IR Outpatient Tube A ppointment Request Start: 02-25-2025 End: 02-25-2025 ambulatory DONA MARTINEZ Facility:[facility] Start: 02-15-2025 End: 02-15-2025 Telephone encounter Verna Jensen [facility] Work Phone: [facility] Comment on above: Missed Appointment ( Primary care reschedule) Start: 02-11-2025 End: 02-11-2025 Refill Chyna Conroy PA-C Work Phone: Transplant Center Comment on above: Refill Request Start: 02-09-2025 End: 02-09-2025 Telephone encounter Kerry Oscar RN NOC Start: 02-08-2025 End: 02-08-2025 Telephone encounter Amanda RUIZ Work Phone: Transplant Center Comment on above: Follow Up Start: 02-07-2025 End: 02-07-2025 Dr. [facility] Work Phone: Start: 02-07-2025 End: 02-07-2025 Emergency department patient visit Dr. Zaida Gaston MD Work Phone: -Emergency Department Work Phone: Start: 02-05-2025 End: 02-05-2025 Telephone encounter Danni Singh RN Angio Start: 02-05-2025 End: 02-05-2025 Office outpatient visit 25 minutes Zaida Gaston MD Work Phone: Internal Medicine [place] Comment on above: Hospital discharge f ollow-up (Primary Dx); Hypertension goal BP (blood pressure) < 140/90; Kidney transplant recipient (HCC); History of kidney stones; Type 1 diabetes mellitus on insulin therapy (HCC); Hyperglycemia; Moderate episode of recurrent major depressive disorder (HCC) Start: 02-05-2025 End: 02-05-2025 ambulatory ZAIDA GASTON Facility:[facility] Start: 02-04-2025 End: 02-04-2025 Telephone encounter Zaida Gaston MD Work Phone: NOC Comment on above: Transition Of Care Start: 02-03-2025 End: 02-03-2025 Telephone encounter Danni Singh RN Angio Comment on above: Follow Up Start: 02-02-2025 End: 02-02-2025 Telephone encounter Bon Concepcion RN Urology Start: 01-27-2025 End: 01-29-2025 Evaluation and management of inpatient YONY WILL Facility:[facility] Start: 01-26-2025 End: 01-27-2025 Dr. Y[facility]is [facility] Work Phone: Start: 01-26-2025 End: 01-27-2025 Emergency department patient visit Dr. Zaida Gaston MD Work Phone: -Emergency Department Work Phone: Start: 01-06-2025 End: 03-08-2025 Follow-up encounter 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 APRN.DOUGH MAKER Work Phone: Family Medicine [place] Start: 01-01-2025 End: 01-01-2025 ambulatory [facility] Facility:[facility] Start: 12-30-2024 End: 12-30-2024 ambulatory DELIA KAUFMAN Facility:[facility] Start: 12-03-2024 ambulatory [facility] Start: 11-19-2024 End: 11-19-2024 Emergency department patient visit Dr. Zaida Gaston MD Work Phone: -Emergency Department Work Phone: Start: 11-11-2024 ambulatory [facility] Start: 09-28-2024 End: 09-28-2024 Office outpatient visit 25 minutes Zaida Gaston MD Work Phone: Internal Medicine [place] Comment on above: Hypertension goal BP (blood pressure) < 140/90 (Primary Dx); Type 1 diabetes mellitus on insulin therapy (HCC); Moderate episode of recurrent major depressive disorder (HCC); Vitamin D deficiency; Gastroesophageal reflux disease without esophagitis Start: 09-28-2024 End: 09-28-2024 ambulatory [facility] Facility:[facility] Start: 09-28-2024 End: 09-28-2024 Refill Alana Kent APRN.DOUGH MAKER Work Phone: Transplant Center Comment on above: Refill Request Start: 09-08-2024 End: 09-15-2024 ambulatory Matty Lewis MA [facility] Start: 09-08-2024 End: 09-15-2024 Patient encounter procedure Matty Lewis MA [facility] Comment on above: Population Health Na vigation Outreach ([facility] ) Start: 07-31-2024 End: 07-31-2024 Refill Zaida Gaston MD Work Phone: Internal Medicine [place] Comment on above: Refill Request Start: 07-28-2024 End: 07-28-2024 Refill Alana Kent APRN.CNP Work Phone: Transplant Center Comment on above: Refill Request Start: 07-28-2024 End: 07-28-[address] Steve Durand MD -[facility] Work Phone: Start: 07-28-2024 End: 07-28-2024 Refill Chyna Conroy PA-C Work Phone: Transplant Center Start: 07-13-2024 End: 07-13-2024 ambulatory Matty Lewis MA [facility] Comment on above: Stomach Medication Start: 07-13-2024 End: 07-13-2024 Patient encounter procedure Matty Lewis MA [facility] Comment on above: Population Health Na vigation Outreach ([facility] Refill Request Start: 06-23-2024 End: 06-23-2024 Telephone encounter Amanda RUIZ Work Phone: Transplant Center Comment on above: Follow Up Start: 06-18-2024 End: 06-18-2024 Telephone encounter Amanda RUIZ Work Phone: Transplant Center Comment on above: Follow Up Start: 06-18-2024 End: 06-18-2024 ambulatory ZAIDA GASTON Facility:[facility] Start: 06-18-2024 End: 06-18-2024 Office outpatient visit 25 minutes Zaida Gaston MD Work Phone: Internal Medicine [place] Comment on above: Type 1 diabetes aggie itus on insulin therapy (HCC) (Primary Dx); Encounter for immunization; Hypertension goal BP (blood pressure) < 140/90; Other hyperlipidemia; Stage 3a chronic kidney disease (HCC) Start: 06-16-2024 End: 06-18-2024 Telephone encounter Alana Kent APRN.DOUGH MAKER Work Phone: Transplant Center Comment on above: Medication Problem Start: 06-03-2024 End: 06-03-2024 ambulatory [facility] Work Phone: [facility] Start: 06-03-2024 End: 06-03-2024 Patient encounter procedure [facility] Work Phone: [facility] Start: 05-14-2024 End: 05-27-2024 Telephone encounter Zaida Gaston MD Work Phone: [facility] Comment on above: Patient Update; Requ est for new Dexcom Start: 04-30-2024 End: 04-30-2024 ambulatory Zaida Gaston Facility:[facility] Start: 04-01-2024 Telephone encounter Lali Ramires MD Work Phone: General Surgery Comment on above: Medication Problem Start: 04-01-2024 ambulatory AMARA Escamilla ty:[facility] Start: 04-01-2024 End: 04-01-2024 Subsequent hospital visit by physician Lali Raman MD Work Phone: [facility] Endoscopy Comment on above: Diarrhea, unspecifie d type [R19.7] Start: 03-24-2024 End: 03-24-2024 Patient encounter procedure Nia James APRN.DOUGH MAKER Work Phone: General Surgery Comment on above: Diarrhea, unspecifie d type (Primary Dx); Gastroesophageal reflux disease without esophagitis; FH: colon cancer in first degree relative <60 years old Start: 03-18-2024 End: 03-18-2024 Patient encounter procedure 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 APRN.DOUGH MAKER Work Phone: Internal Medicine [place] Comment on above: Moderate episode of recurrent major depressive disorder (HCC) (Primary Dx) Start: 02-26-2024 Telephone encounter Zaida blanton MD Work Phone: Internal Medicine [place] Comment on above: Fax Request Start: 01-22-2024 End: 01-22-2024 Patient encounter procedure Delia Shae AUGUST Work Phone: Internal Medicine [place] Comment on above: Type 1 diabetes aggie itus on insulin therapy (HCC) (Primary Dx); Moderate episode of recurrent major depressive disorder (HCC); Hypertension goal BP (blood pressure) < 140/90; Kidney transplant recipient; Stage 3a chronic kidney disease (HCC); 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 Zaida Gaston MD Work Phone: Ambulatory Surgery Start: 01-15-2024 ambulatory Zaida Ordonez Work Phone: Ambulatory Surgery Start: 01-15-2024 Telephone encounter Zaida blanton MD Work Phone: Internal Medicine [place] Comment on above: Insurance Authorizat ion Start: 01-14-2024 End: 01-14-[address] Zaida Gaston Work Phone: [facility] Work Phone: Start: 01-14-2024 End: 01-14-[address] Zaida Gaston Work Phone: [facility] Work Phone: Start: 01-13-2024 End: 01-13-2024 Patient encounter procedure [facility] Work Phone: Transplant Center Comment on above: Kidney replaced by t ransplant (Primary Dx) Start: 01-03-2024 End: 01-03-[address] Zaida Gaston Work Phone: [facility] Work Phone: Start: 01-03-2024 End: 01-03-[address] Zaida Gaston Work Phone: [facility]-Laboratory Work Phone: Start: 01-02-2024 End: 01-02-[address] Zaida Gaston Work Phone: [facility] Endocrinology Work Phone: Start: 12-13-2023 Refill Xiang Perez PA-C Work Phone: Internal Medicine [place] Comment on above: Refill Request Start: 11-27-2023 Refill Conchis Sheets RN [facility] Comment on above: Rx Refills (TAC leve l 2.8/) Start: 11-26-2023 End: 11-26-2023 Patient encounter procedure Xiang Perez PA-C Work Phone: Internal Medicine [place] Comment on above: Diarrhea, unspecifie d type (Primary Dx); Mixed hyperlipidemia; Kidney transplant recipient; Diabetic polyneuropathy associated with type 2 diabetes mellitus (HCC) Start: 11-25-2023 ambulatory Zaida Ordonez Work Phone: Internal Medicine [place] Comment on above: Diarrhea Start: 11-11-2023 End: 11-11-[address] Zaida Gaston Work Phone: [facility] Work Phone: Start: 10-30-2023 Telephone encounter Zaida blanton MD Work Phone: Internal Medicine [place] Comment on above: Orders Start: 10-29-2023 Refill Oscar Mas PA-C Work Phone: Urology Comment on above: Refill Request Start: 10-24-2023 End: 10-24-[address] Zaida Gaston Work Phone: [facility] Work Phone: Start: 10-14-2023 Refill Zaiad Ordonez Work Phone: Internal Medicine [place] Comment on above: Refill Request Start: 10-11-2023 Refill Zaida Ordonez Work Phone: Internal Medicine [place] Comment on above: Refill Request Start: 10-10-2023 ambulatory Delia ArangoDOUGH MAKER Work Phone: Internal Medicine [place] Comment on above: Bupropion Start: 09-18-2023 End: 09-18-2023 Patient encounter procedure 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 APRN.DOUGH MAKER Work Phone: Internal Medicine [place] Comment on above: Type 1 diabetes aggie itus on insulin therapy (HCC) (Primary Dx); Kidney transplant recipient; Hypertension goal BP (blood pressure) < 140/90; Moderate episode of recurrent major depressive disorder (HCC); LUANNE (obstructive sleep apnea) Start: 08-27-2023 Telephone encounter Zaida blanton MD Work Phone: [facility] Comment on above: CGM forms Start: 08-22-2023 ambulatory Oscar Mas PA-C Work Phone: Urology Comment on above: Questions Start: 08-20-2023 End: 08-20-2023 Patient encounter procedure Oscar Mas PA-C Work Phone: Urology Comment on above: Impotence of organic origin (Primary Dx) Start: 08-13-2023 End: 08-13-2023 Patient encounter procedure Oscar Mas PA-C Work Phone: Urology Comment on above: Impotence Start: 07-31-2023 Orders Only Lashae Perry RN Trans plant Center Comment on above: Kidney replaced by t ransplant (Primary Dx) Start: 07-25-2023 Orders Only Conchis Sheets RN Transpl ant Center Comment on above: Kidney replaced by t ransplant (Primary Dx); High risk medication use; Vitamin D deficiency Start: 07-20-2023 Telephone encounter Lashae Nguyen [facility] Start: 07-15-2023 End: 07-15-2023 Patient encounter procedure [facility] Work Phone: Transplant Center Comment on above: Kidney replaced by t ransplant (Primary Dx); Vitamin D deficiency; Erectile dysfunction, unspecified erectile dysfunction type; Immunosuppressive management encounter following kidney transplant; PTE (post-transplant erythrocytosis) Start: 07-13-2023 End: 07-13-2023 ambulatory [facility] Nurse [place] Work Phone: [facility] [place] Comment on above: Arrived Start: 07-01-2023 Refill Zaida Ordonez Work Phone: Internal Medicine [place] Comment on above: Refill Request (st ging to new pharmacy) Start: 05-21-2023 End: 05-21-2023 Patient encounter procedure Xiang Perez PA-C Work Phone: Internal Medicine [place] Comment on above: Diabetic polyneuropa thy associated with type 2 diabetes mellitus (HCC) (Primary Dx); Moderate episode of recurrent major depressive disorder (HCC); Kidney transplant recipient; Elevated alkaline phosphatase level; Erectile dysfunction, unspecified erectile dysfunction type; Mixed hyperlipidemia Start: 04-09-2023 End: 04-09-2023 [facility] Work Phone: [facility] Comment on above: Pain of right lower extremity Start: 04-03-2023 Refill Zaida Ordonez Work Phone: [facility] [place] Comment on above: Refill Request Start: 03-20-2023 Refill Chelsea Ryan MD Work Phone: Transplant Center Comment on above: Refill Request Start: 03-14-2023 Orders Only Lg brown MD Work Phone: Transplant Center Comment on above: Encounter for afterc are following kidney transplant (Primary Dx) Start: 03-13-2023 End: 03-14-2023 Emergency department patient visit Dr. Zaida Gatson Work Phone: [facility]-Emergency Department Work Phone: Start: 02-25-2023 End: 02-25-2023 Patient encounter procedure Zaida Gaston MD Work Phone: Internal Medicine [place] Comment on above: Hypertension goal BP (blood pressure) < 140/90 (Primary Dx); Other hyperlipidemia; Type 1 diabetes mellitus on insulin therapy (HCC); Moderate episode of recurrent major depressive disorder (HCC); Diarrhea, unspecified type; Pain of right lower extremity; Left leg claudication (HCC); Viral wart on finger Start: 02-21-2023 End: 02-21-[address] Zaida Gaston Work Phone: [facility] Work Phone: Start: 01-17-2023 Orders Only Rosi Casillas RN Trans plant Center Comment on above: Kidney replaced by t ransplant (Primary Dx) Start: 01-16-2023 Telephone encounter Danni Nguyen Urology Comment on above: Preparations For Pro cedures Start: 01-14-2023 End: 01-14-[address] Zaida Gaston Work Phone: [facility] Start: 01-11-2023 End: 01-11-[address] Zaida Gaston Work Phone: [facility] Work Phone: Start: 01-11-2023 End: 01-11-[address] Zaida Gaston Work Phone: [facility]-Laboratory Start: 01-02-2023 Telephone encounter Juvencio Haji RN [facility] Comment on above: Results Start: 12-31-2022 End: 12-31-2022 Patient encounter procedure [facility] Work Phone: Transplant Center Comment on above: Kidney replaced by t ransplant (Primary Dx); Encounter for aftercare following kidney transplant; Immunosuppressive management encounter following kidney transplant; ILDA (acute kidney injury) ([facility]) Start: 11-23-2022 End: 11-23-2022 Patient encounter procedure Zaida Gaston MD Work Phone: Internal Medicine [place] Comment on above: Moderate episode of recurrent major depressive disorder (HCC) (Primary Dx); 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 ([facility]); Type 1 diabetes mellitus on insulin therapy (HCC); Diabetic polyneuropathy associated with type 2 diabetes mellitus (HCC); Right leg weakness; Hypertension goal BP (blood pressure) < 140/90 Start: 11-22-2022 End: 11-22-2022 Patient encounter procedure Verna Jensen [facility] Work Phone: [facility] Comment on above: Type 1 diabetes aggie itus on insulin therapy (HCC) (Primary Dx) Start: 11-21-2022 Refill Delia Shae ArangoDOUGH MAKER Work Phone: Internal Medicine [place] Comment on above: Refill Request Start: 11-04-2022 Non-patient / Non-visit Dr. Shai Gaston Work Phone: [facility] Start: 11-03-2022 Non-patient / Non-visit Dr. Shai Gaston Work Phone: [facility] Start: 11-02-2022 Non-patient / Non-visit Dr. Shai Gaston Work Phone: [facility] Start: 11-01-2022 End: 11-01-2022 Non-patient / Non-visit Dr. Zaida Gaston Work Phone: [facility] Start: 11-01-2022 End: 11-05-2022 Evaluation and management of inpatient Dr. Zaida Gaston Work Phone: [facility]-Medical Surgical 3 Start: 11-01-2022 Admission to [facility] surgery center Dr. Zaida Gaston Work Phone: [facility]-Manager Behavioral Start: 11-01-[address] Zaida blanton Work Phone: [facility] Work Phone: Start: 11-01-2022 End: 11-06-[address] [facility]aston [facility] Start: 11-01-[address] William Gaston [facility] Start: 10-18-2022 End: 10-18-[address] Zaida Gaston Work Phone: [facility] Start: 10-15-2022 ambulatory Verna Jensen [facility] Work Phone: [facility] Comment on above: A1c Start: 10-15-2022 E-mail encounter fro silvano caregiver Verna Jensen [facility] Work Phone: [facility]QUE[facility] Start: 10-04-2022 End: 10-04-2022 Patient encounter procedure Verna Jensen [facility] Work Phone: [facility] Comment on above: Type 1 diabetes aggie itus on insulin therapy (HCC) (Primary Dx) Start: 09-27-2022 End: 10-09-[address] Zaida Gaston Work Phone: [facility] Work Phone: Start: 09-27-2022 End: 10-09-[address] Zaida Gaston Work Phone: [facility] Start: 09-24-2022 End: 09-24-2022 Patient encounter procedure Felicita Cameron [facility] Work Phone: Endocrinology Comment on above: Type 1 diabetes aggie itus on insulin therapy (HCC) (Primary Dx) Kidney replaced by t ransplant (Primary Dx); Immunosuppressive management encounter following kidney transplant; Mixed hyperlipidemia Start: 09-11-2022 Non-patient / Non-visit Dr. Shai Gaston Work Phone: [facility] Start: 09-06-2022 End: 09-08-[address] Zaida Gaston Work Phone: [facility] Work Phone: Start: 09-06-2022 End: 09-08-[address] Zaida Gaston Work Phone: [facility] Start: 09-06-2022 End: 09-06-[address] Zaida Gaston Work Phone: [facility] Start: 09-05-2022 Non-patient / Non-visit Dr. Shai Gaston Work Phone: [facility] Start: 08-29-2022 Non-patient / Non-visit Dr. Shai Gaston Work Phone: [facility] Start: 08-28-2022 End: 08-28-2022 Emergency department patient visit Dr. Zaida Gaston Work Phone: [facility]-Emergency Department Start: 08-28-2022 Non-patient / Non-visit Dr. Shai Gaston Work Phone: [facility] Start: 08-28-[address] William Gaston [facility] Start: 08-27-2022 Non-patient / Non-visit Dr. Shai Gaston Work Phone: [facility] Start: 08-25-2022 End: 08-25-2022 Patient encounter procedure Zaida Gaston MD Work Phone: Internal Medicine [place] Comment on above: Diabetic ulcer of le [...] End: 08-23-2022 Patient encounter procedure Verna Jensen [facility] Work Phone: [facility] Comment on above: Type 1 diabetes aggie itus on insulin therapy (HCC) (Primary Dx); Medication management Start: 08-23-2022 Telephone encounter Verna ramirez [facility] Work Phone: [facility] Comment on above: Forms (CGM order) Start: 08-20-2022 Telephone encounter Zaida blanton MD Work Phone: Internal Medicine [place] Comment on above: Patient Update Start: 08-20-2022 Non-patient / Non-visit Dr. Shai Gaston Work Phone: [facility] Start: 08-17-2022 End: 08-17-[address] Zaida Gaston Work Phone: [facility] Start: 08-16-2022 Non-patient / Non-visit Dr. Shai Gaston Work Phone: [facility] Start: 08-15-2022 Non-patient / Non-visit Dr. Shai Gaston Work Phone: [facility] Start: 08-09-2022 Non-patient / Non-visit Dr. Shai Gaston Work Phone: [facility] Start: 08-08-2022 Non-patient / Non-visit Dr. Shai Gaston Work Phone: [facility] Start: 08-08-2022 End: 08-08-[address] [facility] Gaston [facility] Start: 08-07-2022 Telephone encounter Zaida blanton MD Work Phone: Internal Medicine [place] Comment on above: Release Of Medical R ecords Start: 08-07-2022 Non-patient / Non-visit Dr. Shai Gaston Work Phone: [facility] Start: 08-06-2022 Non-patient / Non-visit Dr. Sh[facility] Gaston [facility] Start: 08-06-2022 Telephone encounter Zaida blanton MD Work Phone: Internal Medicine [place] Comment on above: [facility] requesting lab results Start: 08-03-2022 End: 08-03-2022 Patient encounter [facility] Work Phone: Trans[facility] Comment on above: Kidney replaced by t ransplant (Primary Dx); Encounter for aftercare following kidney transplant; Immunosuppressive management encounter following kidney transplant; Essential hypertension Start: 08-01-2022 Non-patient / Non-visit Dr. Shai Gaston Work Phone: [facility] Start: 07-31-2022 ambulatory Zaida Ordonez Work Phone: Internal Medicine [place] Comment on above: Would like to see an Emissions Testing And Repair Technician Start: 07-31-2022 Non-patient / Non-visit Dr. Shai Gaston Work Phone: [facility] Start: 07-30-2022 Non-patient / Non-visit Dr. Shai Gaston Work Phone: [facility] Start: 07-26-2022 Non-patient / Non-visit Dr. Shai Gaston Work Phone: [facility] Start: 07-25-2022 Non-patient / Non-visit Dr. Shai Gaston Work Phone: [facility] Start: 07-23-2022 Non-patient / Non-visit Dr. Shai Gaston Work Phone: [facility] Start: 07-19-2022 Refill Zaida Ordonez Work Phone: Internal Medicine [place] Comment on above: Refill Request Start: 07-19-2022 Non-patient / Non-[facility] Start: 07-18-2022 Non-patient / Non-visit Dr. Shai Gaston Work Phone: [facility] Start: 07-16-2022 Non-patient / Non-visit Dr. Shai Gaston Work Phone: [facility] Start: 07-13-2022 End: 07-13-2022 Patient encounter procedure Zaida Gaston MD Work Phone: Internal Medicine [place] Comment on above: Controlled type 2 di abetes mellitus without complication, without long-term current use of insulin (HCC) (Primary Dx); Uncontrolled hypertension; Need for influenza vaccination Start: 07-09-2022 Non-patient / Non-visit Dr. Shai Gaston Work Phone: [facility] Start: 07-09-2022 End: 07-09-[address] Zaida Gaston [facility] Start: 07-05-2022 End: 07-05-2022 Patient encounter procedure [facility] Work Phone: Transplant Center Comment on above: Encounter for afterc are following kidney transplant (Primary Dx); Kidney replaced by transplant; Immunosuppressive management encounter following kidney transplant; Essential hypertension; Transaminitis Start: 06-26-2022 Non-patient / Non-visit Dr. Shai Gaston Work Phone: [facility] Start: 06-08-2022 End: 06-08-2022 Patient encounter procedure [facility] Work Phone: Transplant Center Comment on above: Kidney replaced by t ransplant (Primary Dx) Start: 06-07-2022 End: 06-08-[address] Zaida Gaston Work Phone: [facility] Work Phone: Start: 06-07-2022 End: 06-08-[address] Za[facility]aston [facility] Start: 05-31-2022 End: 05-31-[address] Zaida Gaston Work Phone: [facility] Start: 05-31-2022 Non-patient / Non-visit Dr. Shai Gaston Work Phone: [facility] Start: 05-13-2022 Refill Dale MICHAELS.DOUGH MAKER Work Phone: Endocrinology Comment on above: Refill Request Start: 05-12-2022 Refill Dale GUADALUPEN.DOUGH MAKER Work Phone: Endocrinology Comment on above: Refill Request Start: 05-09-2022 End: 05-09-[address] Zaida Gaston Work Phone: [facility] Work Phone: Start: 05-09-2022 End: 05-09-[address] Zaida Gaston [facility] Start: 04-30-2022 End: 05-09-[address] Zaida Gaston Work Phone: [facility] Work Phone: Start: 04-30-2022 End: 05-09-[address] Zaida Gaston Work Phone: [facility]Laboratory, Specimen Start: 04-30-[address] William Gaston Work Phone: [facility], Specimen Start: 04-25-2022 Refill Zaida Ordonez Work Phone: [facility] [place] Comment on above: Refill Request Start: 04-12-[address] 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 William Gaston Work Phone: [facility], Specimen Start: 04-05-2022 End: 04-05-[address] Zaida Gaston Work Phone: [facility], Specimen Start: 04-05-2022 Refill [facility] Comment on above: Rx Refills Start: 04-05-2022 End: 04-08-[address] Zaida Gaston [facility] Start: 04-05-[address] William Gaston [facility] Start: 04-02-2022 End: 04-07-[address] Zaida Gaston Work Phone: [facility] Lab Start: 03-28-2022 Orders Only Alana deluca APRN.DOUGH MAKER Work Phone: Transplant Center Comment on above: Kidney replaced by t ransplant (Primary Dx) Start: 03-28-2022 Non-patient / Non-visit Dr. Shai Gaston Work Phone: [facility] Start: 03-27-2022 Telephone encounter Zaida blanton MD Work Phone: [facility] [place] Comment on above: Home Health Orders Start: 03-27-2022 Non-patient / Non-visit Dr. Shai Gaston Work Phone: [facility] Start: 03-26-2022 Non-patient / Non-visit Dr. Shai Gaston Work Phone: [facility] Start: 03-25-2022 Non-patient / Non-visit Dr. Shai Gaston Work Phone: [facility] Start: 03-24-2022 Non-patient / Non-visit Dr. Shai Gaston Work Phone: [facility] Start: 03-24-2022 End: 03-28-2022 Evaluation and management of inpatient Dr. Zaida Gaston Work Phone: [facility] Start: 03-13-[address] William Gaston Work Phone: [facility] Start: 03-08-2022 End: 03-08-2022 Patient encounter procedure [facility] Work Phone: Transplant Center Comment on above: Kidney replaced by t ransplant (Primary Dx); Encounter for aftercare following kidney transplant; Post-transplant erythrocytosis; Immunosuppressive management encounter following kidney transplant Start: 03-06-2022 End: 03-08-[address] Zaida Gaston Work Phone: [facility] Start: 03-02-2022 Telephone encounter Conner Molina (Pcn a) [facility] Comment on above: Electronic Communica tion Start: 02-14-2022 Refill Juvencio Haji RN [facility] Comment on above: Refill Request; Medi cation Dosage Adjustment (High Envarsus 14.2) Start: 02-06-2022 End: 02-06-[address] Zaida Gaston Work Phone: [facility] Start: 01-19-2022 End: 01-19-[address] Zaida Gaston Work Phone: [facility] Start: 01-08-2022 Refill Solomon ramirez MD Work Phone: Transplant Center Comment on above: Refill Request Start: 01-02-2022 End: 01-06-[address] Zaida Gaston [facility] Start: 12-26-2021 Chart abstracting Kathy Jurado Research Coordinator [facility] [place] Comment on above: Research (IRB# [id number]) Start: 12-20-2021 Orders Only Kathy Cochran esearch Coordinator [facility] [place] Comment on above: Research subject (Pr imary Dx) Start: 12-20-2021 Patient entered into trial Kathy Jurado Research Coordinator [facility] [place] Start: 12-08-2021 End: 12-08-2021 Patient encounter procedure [facility] Work Phone: Transplant Center Comment on above: S/P kidney transplan t (Primary Dx); Immunosuppressive management encounter following kidney transplant Start: 12-04-2021 End: 12-04-[address] Zaida Gaston Work Phone: [facility] Start: 09-20-2021 Non-patient / Non-visit Dr. Shai Gaston Work Phone: [facility] Start: 09-19-2021 Non-patient / Non-visit Dr. Shai Gaston Work Phone: [facility] Start: 09-18-2021 Non-patient / Non-visit Dr. Shai Gaston Work Phone: [facility] Start: 09-17-2021 Non-patient / Non-visit Dr. Shai Gaston Work Phone: [facility] Start: 09-17-2021 End: 09-20-2021 Evaluation and management of inpatient Dr. Zaida Gaston Work Phone: [facility]Medical Surgical 3 Start: 09-14-2021 End: 09-14-2021 Emergency department patient visit Dr. Zaida Gaston Work Phone: [facility]Emergency Department Procedures Date Procedure Procedure Detail Performing Clinician Start: 04-17-2025 Blood count smear mcrscp w/mnl difrntl wbc count Dr. Zaida Gaston MD Work Phone: Start: 04-17-[address] William Gaston MD Work Phone: Start: 04-17-2025 Mean corpuscular hemoglobin concentration determination Dr. Zaida Gaston MD Work Phone: Start: 04-17-2025 Nucleated red blood cell count procedure Dr. Zaida Gaston MD Work Phone: Start: 04-17-2025 Platelet mean volume determination Dr. Alberto Gaston MD Work Phone: Start: 04-15-[address] Zaida Gaston MD Work Phone: Start: 04-14-2025 CT of abdomen and pelvis without contrast Dr. Ziada Gaston MD Work Phone: Start: 04-14-2025 Urine microscopy: red cells Dr. Zaida xavier MD Work Phone: Start: 04-14-2025 Urnls dip stick/tablet reagent auto microscopy Dr. Zaida Gaston MD Work Phone: Start: 04-14-2025 Plain chest X-ray Dr. Zaida Gaston MD Work Phone: Start: 04-14-2025 Calculation of international normalized ratio Dr. Zaida Gaston MD Work Phone: Start: 04-14-[address] William Gaston MD Work Phone: Start: 04-14-[address] Zaida Gaston MD Work Phone: Start: 04-14-2025 Identification procedure for living organism Dr. Zaida Gaston MD Work Phone: Start: 04-04-[address] Zaida Gaston MD Work Phone: Start: 04-04-2025 Urine microscopy: red cells Dr. Zaida xavier MD Work Phone: Start: 04-04-2025 Urnls dip stick/tablet reagent auto microscopy Dr. Zaida Gaston MD Work Phone: Start: 04-04-2025 Blood count smear mcrscp w/mnl difrntl wbc count Dr. Zaida Gaston MD Work Phone: Start: 04-04-[address] William Gaston MD Work Phone: Start: 04-04-2025 Mean corpuscular hemoglobin concentration determination Dr. Zaida Gaston MD Work Phone: Start: 04-04-2025 Nucleated red blood cell count procedure Dr. Zaida Gaston MD Work Phone: Start: 04-04-2025 Platelet mean volume determination Dr. Alberto Gaston MD Work Phone: Start: 03-10-[address] William Gaston MD Work Phone: Start: 03-10-2025 Urine microscopy: red cells Dr. Zaida xavier MD Work Phone: Start: 03-10-2025 Urnls dip stick/tablet reagent auto microscopy Dr. Zaida Gaston MD Work Phone: Start: 03-10-2025 CT of abdomen and pelvis without contrast Dr. Zaida Gaston MD Work Phone: Start: 01-27-2025 Antibody screen MARIZAFarideh VENCES Comment on above: Order Comment: Specimen Type: BLOOD SPEC IMEN Ordering Facility: [facility] Address: [address] [place] [address] Performed By: #### T SCR #### [facility] CLIA [id number] [address] [place], [place] [address] [place] Start: 01-27-[address] William Gaston MD Work Phone: Start: 01-26-2025 Urine microscopy: red cells Dr. Zaida xavier MD Work Phone: Start: 01-26-2025 Urnls dip stick/tablet reagent auto microscopy Dr. Zaida Gaston MD Work Phone: Start: 01-26-2025 Venous oxygen saturation measurement Dr. Zaida Gaston MD Work Phone: Start: 01-26-2025 X-ray of chest, PA and lateral views Dr. Zaida Gaston MD Work Phone: Start: 01-26-2025 CT of abdomen and pelvis without contrast Dr. Zaida Gaston MD Work Phone: Start: 01-26-2025 Blood count smear mcrscp w/mnl difrntl wbc count Dr. Zaida Gaston MD Work Phone: Start: 01-26-2025 Mean corpuscular hemoglobin concentration determination Dr. Zaida Gaston MD Work Phone: Start: 01-26-2025 Nucleated red blood cell count procedure Dr. Zaida Gaston MD Work Phone: Start: 01-26-2025 Platelet mean volume determination Dr. Alberto Gaston MD Work Phone: Start: 01-26-[address] Alberto Gaston MD Work Phone: Start: 01-26-2025 Urine [...] Colonoscopy flx dx w/collj spec when pfrmd Nia James 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.DOUGH MAKER Work Phone: Start: 04-01-2024 Esophagogastroduodenoscopy transoral diagnostic Nia James 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.DOUGH MAKER Work Phone: Start: 04-01-2024 End: 04-01-2024 Gluc bld gluc mntr dev cleared fda spec home use Amara Sloan DO Work Phone: Start: 04-01-2024 Colonoscopy Lali Raman MD Work Phone: Start: 01-14-[address] Zaida Jimenez nta Work Phone: Start: 01-13-2024 Creatinine other source Alana Hedervary 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.D[employer] MAKER Work Phone: Start: 01-13-2024 Urnls dip stick/tablet rgnt auto w/o microscopy Alana Hedervary 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.D[employer] MAKER Work Phone: Start: 07-15-2023 Creatinine other source Alana Hedervary 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.D[employer] MAKER Work Phone: Start: 07-15-2023 Urnls dip stick/tablet reagent auto microscopy Alana Hedervary 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.DOUGH MAKER Work Phone: Start: 07-13-2023 INFLUENZA VACCINE, AGE [...] Phone: Start: 07-05-2022 Creatinine other source Karl Ordonez Work Phone: Start: 07-05-2022 Urnls dip stick/tablet rgnt auto w/o microscopy Karl Green MD Work Phone: Start: 06-08-2022 Creatinine other source Kely Hopper MD Work Phone: Start: 06-08-2022 Urnls dip stick/tablet rgnt auto w/o microscopy Kely Hopper MD Work Phone: Start: 05-31-2022 Plain chest X-ray Dr. Zaida Gaston Work Phone: Start: 05-31-2022 X-ray of both feet Dr. Zaida Gaston Work Phone: Start: 03-24-[address] Zaida Gaston Work Phone: Start: 03-24-[address] Zaida Gaston Work Phone: Start: 03-24-[address] Zaida Gaston Work Phone: Start: 03-24-2022 X-ray of both feet Dr. Zaida Gaston Work Phone: Start: 03-13-2022 X-ray of both feet Dr. Zaida Gaston Work Phone: Start: 03-08-2022 Urnls dip [...] transplant Kidn ey replaced by transplant Alana Kent 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.[facility] Work Phone: History of renal transplant Kidn [...] renal transplant Kidn ey transplant recipient 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.DOUGH MAKER Work Phone: History of renal transplant Kidn ey transplant recipient Xiang ROCHA-C Work Phone: History of renal transplant Kidn ey replaced by transplant Conchis Sheets RN History of renal transplant Kidn ey replaced by transplant [facility] Work Phone: History of renal transplant Kidn ey transplant recipient Delia Older 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.D[employer] MAK[employer] Work Phone: History of renal transplant Melissa l transplant recipient Dr. Zaida Gaston MD Work Phone: History of renal transplant Melissa l transplant recipient Dr. Zaida Gaston MD Work Phone: History of renal transplant Kidn ey transplant recipient ([facility]) Zaida Gaston MD Work Phone: History of renal transplant Kidn ey transplant recipient Dr. Zaida Gaston MD Work Phone: History of renal transplant Kidn ey transplant recipient Dr. Zaida Gaston MD Work Phone: History of renal transplant Dr. Shruti Jara MD History of renal transplant Kidn ey replaced by transplant ([facility]) Mariza Vences 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.DOUGH MAKER Work Phone: History of renal transplant Kidn ey replaced by transplant ([facility]) Mariza Vences 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.DOUGH MAKER Work Phone: Investigation of tra nsfusion reaction [...] 04-01-2029 Screening for malignant neoplasm of colon [facility] Start: 05-02-2026 Creatinine measurement Serum Creatinine [facility] Start: 04-29-2026 Complete blood count Hemoglobin/Hematocrit [facility] Start: 04-21-2026 Creatinine measurement Serum Creatinine [facility] Start: 02-05-2026 Annual PCP Team Chronic Disease Visit Annual PCP Team Chronic Disease Visit [facility] Start: 02-05-2026 BP Controlled (<130/80) BP Controlled (<130/80) [facility] Start: 01-29-2026 Complete blood count Hemoglobin/Hematocrit [facility] Start: 01-29-2026 Creatinine measurement Serum Creatinine [facility] Start: 01-01-2026 Hepatitis B screening Urine Albumin:Creatinine Ratio [facility] Start: 01-01-2026 Hepatitis B surface antibody level LDL Cholesterol [facility] Start: 12-30-2025 Annual PCP Team Chronic Disease Visit Annual PCP Team Chronic Disease Visit [facility] Start: 12-30-2025 BP Controlled (<130/80) BP Controlled (<130/80) [facility] Start: 09-28-2025 Annual PCP Team Chronic Disease Visit Annual PCP Team Chronic Disease Visit [facility] Start: 09-28-2025 BP Controlled (<130/80) BP Controlled (<130/80) [facility] Start: 08-13-2025 End: 06-13-2026 US Kidney - bilateral and Urinary bladder US KIDNEY/BLADDER Radiology Routine Nephrolithiasis Kidney replaced by transplant (HCC) Expected: 08/13/2025, Expires: 06/13/2026 [facility] Work Phone: Comment on above: Expected: 08/13/2025, Expires: Start: 08-13-2025 End: 06-13-2026 XR Abdomen Supine and Upright XR ABDOMEN 1V SUPINE Radiology Routine Nephrolithiasis Kidney replaced by transplant (HCC) Expected: 08/13/2025, Expires: 06/13/2026 [facility] Comment on above: Expected: 08/13/2025, Expires: Start: 07-19-2025 [facility]c [facility] Start: 06-18-2025 Annual PCP Team Chronic Disease Visit Annual PCP Team Chronic Disease Visit [facility] Start: 06-07-2025 End: 06-07-2025 Patient encounter procedure 06/07/2025 3:30 PM EDT Office Visit Urology [address] [address] Bren Sutton MD [address] [place] [address] William Cameron MD Urology Comment on above: William Cameron MD Start: 05-24-2025 [facility]rine microalbumin profile [facility] Start: 05-20-2025 End: 05-20-2025 Patient encounter procedure 05/20/2025 1:30 PM EDT Office Visit Transplant Center [address] [place] [id number] Providers, [facility] [address] [place] [id number] follow up in [facility] Transplant Center Comment on above: follow up in [facility] Start: 05-18-2025 End: 05-18-2025 Patient encounter procedure 05/18/2025 10:00 AM EDT Office Visit Kidney Medicine [facility] [address] [address] Megan Montejo, 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.DOUGH MAKER [address] [place] [address] Transplant kidney Kidney [facility] Comment on above: Transplant kidney Start: 05-14-2025 End: 05-14-2025 Patient encounter procedure 05/14/2025 9:00 AM EDT Office Visit Urology [address] [address] Mariza Vences, 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.DOUGH MAKER [address] [place] [address] Nephrolithiasis Urology Comment on above: Nephrolithiasis Start: 05-10-2025 Influenza vaccination Influenza Vaccine (#1) [facility] Start: 05-05-2025 End: 05-05-2025 Patient encounter procedure 05/05/2025 3:00 PM EDT Office Visit Kidney [facility] [address] [address] Megan Montejo, 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.DOUGH MAKER [address] [place] [address] Transplant kidney Kidney [facility] Comment on above: Transplant kidney Start: 04-26-2025 End: 04-26-2025 Patient encounter procedure 04/26/2025 4:00 PM EDT [facility] [address] [place] [address] [place] [address] [place] [address] Stones consult ok per [facility] Comment on above: Stones consult ok per [facility] Start: 04-22-2025 End: 04-22-2025 Cysto w/ureteroscopy w/lithotripsy LASER CYSTOURETHROSCOPY W/ URETEROSCOPY AND/OR PYELOSCOPY W/ LITHOTRIPSY HOLMIUM Ureterolithiasis 04/22/2025 4:15 PM EDT [facility] Start: 04-22-2025 End: 04-22-2025 Evaluation and management of inpatient 04/22/2025 4:15 PM EDT - 04/22/2025 6:21 PM EDT Surgery Admitting [address] [place] [address] Halina Gates MD [address] [place] [address] LASER CYSTOURETHROSCOPY W/ URETEROSCOPY AND/OR PYELOSCOPY W/ LITHOTRIPSY HOLMIUM; TRANSPLANT URETER Admitting Comment on above: LASER CYSTOURETHROSCOPY W/ URETEROSCOPY AND/OR PYELOSCOPY W/ LITHOTRIPSY HOLMIUM; TRANSPLANT URETER Start: 04-18-2025 Patient discharge [facility] Start: 04-17-2025 Contact precautions [facility] Start: 04-16-2025 [facility] Start: 04-16-2025 End: 04-16-2025 [facility] Start: 04-15-2025 Consultation [facility] Start: 04-15-2025 Catheterization of vein [facility] Start: 04-15-2025 Care regimes management [facility] Start: 04-15-2025 Notification of physician [facility] Start: 04-15-2025 Assessment of risk of venous thromboembolism [facility] Start: 04-15-2025 Insertion of catheter into peripheral vein [facility] Start: 04-15-2025 Measuring intake and output [facility] Start: 04-15-2025 Providing care according to standard [facility] Start: 04-15-2025 Provision of activity privileges [facility] Start: 04-15-2025 Referral to occupational therapist [facility] Start: 04-15-2025 Referral to service [facility] Start: 04-15-2025 End: 04-15-2025 [facility] Start: 04-15-2025 Following clinical pathway protocol [facility] Start: 04-15-2025 Hospital admission, emergency, from emergency room, medical nature [facility] Start: 04-15-2025 Admission procedure [facility] Start: 04-14-2025 [facility] Start: 04-14-2025 [facility] Start: 04-14-2025 End: 04-14-2025 [facility] Start: 04-14-2025 Bacteria Detection (PCR) Bacteria Detection (PCR) [facility] Start: 04-14-2025 Bacteria identified in Blood by Culture Blood Culture [facility] Start: 04-14-2025 Blood culture [facility] Start: 04-14-2025 Urine culture [facility] Start: 04-13-2025 End: 04-13-2025 Patient encounter procedure 04/13/2025 11:20 AM EDT Office Visit [facility] [place] [address] [facility] [place] [address] Zaida Gaston MD [address] [facility] [place] [address] 2 mo follow up [facility] [place] Comment on above: 2 mo follow up Start: 04-12-2025 End: 04-12-2025 Patient encounter procedure 04/12/2025 10:00 AM EDT [facility] [address] [place] [address] [facility] [address] [place] [id number] DM f/up [facility] Comment on above: DM f/up Start: 04-05-2025 End: 04-05-2025 Patient encounter procedure 04/05/2025 11:20 AM EDT Office Visit [facility] [place] [address] [facility] [address] Zaida Gaston MD [address] [place] [address] 2 mo follow up [facility] [place] Comment on above: 2 mo follow up Start: 04-04-2025 [facility] Start: 04-04-2025 Bacteria identified in Urine by Culture Urine Culture [facility] Start: 04-04-2025 [facility] Start: 04-02-2025 Hemoglobin A1c measurement HbA1C [facility] Start: 03-24-2025 BP Controlled (<130/80) BP Controlled (<130/80) [facility] Start: 03-18-2025 Annual PCP Team Chronic Disease Visit Annual PCP Team Chronic Disease Visit [facility] Start: 03-18-2025 BP Controlled (<130/80) BP Controlled (<130/80) [facility] Start: 03-10-2025 [facility] Start: 03-08-2025 End: 03-08-2025 Patient encounter procedure 03/08/2025 10:30 AM EDT [facility] [address] [place] [address] [facility] [address] [place] [phone] DM initial [facility] Comment on above: DM initial Start: 02-25-2025 End: 02-25-2025 Admission to same day surgery center 02/25/2025 9:40 AM EDT - 02/25/2025 11:20 AM EDT Surgery Angio [address] [place] [address] REVERSER [address] [place] [address] PERC EXCHANGE NEPHROSTOMY CATH, INCLUDING DIAGNOSTIC NEPHROSTOGRAM/URETEROGRAM WHEN PERFORMED,IMAGING GUIDANCE AND ALL ASSOCIATED RAD S&I Angio Comment on above: PERC EXCHANGE NEPHROSTOMY CATH, INCLUDIN G DIAGNOSTIC NEPHROSTOGRAM/URETEROGRAM WHEN PERFORMED,IMAGING GUIDANCE AND ALL ASSOCIATED RAD S&I Start: 02-25-2025 Subsequent hospital visit by physician 02/25/2025 9:40 AM EDT Hospital Encounter [facility] [address] [place] [address] REVERSER [address] [place] [address] Hydronephrosis, unspecified hydronephrosis type [N13.30] Angio Comment on above: Hydronephrosis, unspecified hydronephros is type [N13.30] Start: 02-25-2025 End: 02-25-2025 Exchange nephrostomy catheter prq w/img gid rs&i [facility] HB6 Start: 02-15-2025 End: 02-15-2025 Patient encounter procedure 02/15/2025 9:30 AM EDT [facility] [address] [place] [address] Verna Jensen [facility] [address] [place] [address] Type 1 diabetes mellitus on insulin therapy (HCC) [E10.9] [facility] Comment on above: Type 1 diabetes mellitus on insulin ther apy (HCC) [E10.9] Start: 02-11-2025 End: 02-11-2025 Patient encounter procedure Transplant C enter Comment on above: hosp d/c-per Consult (antegrade s tone management/surgical discussion) Start: 02-07-2025 [facility] Start: 02-05-2025 End: 02-05-2025 Patient encounter procedure 02/05/2025 11:40 AM EDT Office Visit Internal Medicine [facility] [address] [place], [place] [id number] Zaida Gaston MD [address] [place], [place] [phone] [facility] follow up kidney stones [facility] [place] Comment on above: [facility] follow up kidney stones Start: 01-26-2025 End: 01-26-2025 [facility] Start: 01-26-2025 Bacteria identified in Urine by Culture Urine Culture [facility] Start: 01-21-2025 Annual PCP Team Chronic Disease Visit Annual PCP Team Chronic Disease Visit [facility] Start: 01-21-2025 BP Controlled (<130/80) BP Controlled (<130/80) [facility] in Start: 01-12-2025 BP Controlled (<130/80) BP Controlled (<130/80) [facility] in Start: 01-09-2025 Creatinine measurement Serum Creatinine [facility] Start: 01-09-2025 Hepatitis B surface antibody level LDL Cholesterol [facility] Start: 12-29-2024 End: 12-29-2024 Patient encounter procedure 12/29/2024 2:20 PM EDT Office Visit Internal Medicine [facility] [address] [place], [place] [phone] Zaida Gaston MD [address] [place], [place] [phone] 3 mo follow up Internal Medicine [facility] Comment on above: 3 mo follow up Start: 12-27-2024 End: 03-28-2025 25-hydroxyvitamin D3 [Mass/volume] in Serum or Plasma VITAMIN D 25 HYDROXY Lab Routine Vitamin D deficiency Expected: 12/27/2024, Expires: 03/28/2025 [facility] Comment on above: Expected: 12/27/2024, Expires: Start: 12-27-2024 End: 03-28-2025 CBC panel - Blood by Automated count COMPLETE BLOOD COUNT Lab Routine Type 1 diabetes mellitus on insulin therapy (HCC) Expected: 12/27/2024, Expires: 03/28/2025 [facility] Work Phone: Comment on above: Expected: 12/27/2024, Expires: Start: 12-27-2024 End: 03-28-2025 Comprehensive metabolic 2000 panel - Serum or Plasma COMPREHENSIVE METABOLIC PANEL Lab Routine Type 1 diabetes mellitus on insulin therapy (HCC) Expected: 12/27/2024, Expires: 03/28/2025 [facility] Comment on above: Expected: 12/27/2024, Expires: Start: 12-27-2024 End: 03-28-2025 Lipid 1996 panel - Serum or Plasma LIPID PANEL BASIC Lab Routine Type 1 diabetes mellitus on insulin therapy (HCC) Expected: 12/27/2024, Expires: 03/28/2025 [facility] Comment on above: Expected: 12/27/2024, Expires: Start: 12-27-2024 End: 03-28-2025 Thyrotropin [Units/volume] in Serum or Plasma THYROID STIMULATING HORMONE Lab Routine Type 1 diabetes mellitus on insulin therapy (HCC) Expected: 12/27/2024, Expires: 03/28/2025 [facility] Comment on above: Expected: 12/27/2024, Expires: Start: 12-17-2024 Hemoglobin A1c measurement HbA1C [facility] Start: 11-25-2024 Annual PCP Team Chronic Disease Visit Annual PCP Team Chronic Disease Visit [facility] Start: 11-25-2024 Complete blood count Hemoglobin/Hematocrit [facility] Start: 11-25-2024 Creatinine measurement Serum Creatinine [facility] Start: 11-25-2024 Hepatitis B surface antibody level LDL Cholesterol [facility] Start: 11-19-2024 End: 11-19-2024 [facility] Start: 11-19-2024 Bacteria identified in Urine by Culture Urine Culture [facility] Start: 10-03-2024 Glaucoma screening Dilated Retinal Exam [facility] Start: 09-21-2024 End: 09-21-2024 Patient encounter procedure 09/21/2024 11:40 AM EST Office Visit Internal Medicine [facility] [address] [place] [address] Zaida Gaston MD [address] [place] [address] 3 month follow up [facility] Medicine [facility] Comment on above: 3 month follow up Start: 09-18-2024 Annual PCP Team Chronic Disease Visit Annual PCP Team Chronic Disease Visit [facility] Start: 09-18-2024 BP Controlled (<130/80) BP Controlled (<130/80) [facility] Start: 09-18-2024 Covid-19 Vaccine ( season) Covid-19 Vaccine ( season) [facility] Comment on above: Postponed from 05/10/2023 (Declined at t his time) Start: 09-18-2024 Hepatitis A Vaccine (1 of 2 - Risk 2-dose series) Hepatitis A Vaccine (1 of 2 - Risk 2-dose series) [facility] Comment on above: Postponed from 12/08/1987 (Declined at t his time) Start: 09-18-2024 Pneumococcal vaccination Pneumococcal Vaccine (3 of 3 - PPSV23 or PCV20) [facility] Comment on above: Postponed from 09/01/2021 (Declined at t his time) Start: 09-18-2024 Shingrix Vaccine (1 of 2) Shingrix Vaccine (1 of 2) [facility] Comment on above: Postponed from 12/08/1987 (Declined at t his time) Start: 09-11-2024 End: 12-11-2024 Microalbumin/Creatinine [Mass Ratio] in Urine ALBUMIN/CREATININE RATIO, URINE Lab Routine Type 1 diabetes mellitus on insulin therapy (HCC) Expected: 09/11/2024 (Approximate), Expires: 12/11/2024 [facility] Work Phone: Comment on above: Expected: 09/11/2024 (Approximate), Expi res: 12/11/2024 Start: 09-09-2024 Medicare Advantage Annual Wellness Visit Medicare [facility] Annual Wellness Visit [facility] Start: 09-07-2024 Creatinine measurement Serum Creatinine [facility] Start: 09-07-2024 Hepatitis B screening Urine Albumin:Creatinine Ratio [facility] Start: 09-07-2024 Hepatitis B surface antibody level LDL Cholesterol [facility] Start: 09-07-2024 End: 09-07-2024 Patient encounter procedure 09/07/2024 2:00 PM EST Office Visit [facility] [address] [address] Providers, [facility] [address] [phone] Follow up in [facility] Comment on above: Follow up in [facility] in 6 months Start: 08-21-2024 Diabetic foot examination Diabetic Foot Exam [facility] Start: 08-13-2024 BP Controlled (<130/80) BP Controlled (<130/80) [facility] Start: 07-19-2024 Complete blood count Hemoglobin/Hematocrit [facility] Start: 07-19-2024 Creatinine measurement Serum Creatinine [facility] Start: 07-19-2024 Hemoglobin/Hematocrit Hemoglobin/Hematocrit [facility] Start: 07-19-2024 Hepatitis B screening Urine Albumin:Creatinine Ratio [facility] Start: 07-19-2024 Serum Creatinine Serum Creatinine [facility] Start: 07-16-2024 End: 07-16-2024 Patient encounter procedure 07/16/2024 1:40 PM EST Office Visit [facility] [address] [address] Providers, [facility] [address] [phone] Follow up in [facility] 6 months [facility] Comment on above: Follow up in [facility] in 6 months Start: 07-15-2024 BP Controlled (<130/80) BP Controlled (<130/80) [facility] Start: 07-15-2024 Hemoglobin/Hematocrit Hemoglobin/Hematocrit [facility] Start: 07-15-2024 Hepatitis B surface antibody level LDL Cholesterol [facility] Start: 07-15-2024 Serum Creatinine Serum Creatinine [facility] Start: 06-18-2024 End: 06-18-2024 Patient encounter procedure 06/18/2024 11:40 AM EDT Office Visit Internal Medicine [place] [address] [place] [address] Zaida Gaston MD [address] [place] [address] 3 month follow up [facility] Comment on above: 3 month follow up Start: 05-21-2024 Annual PCP Team Chronic Disease Visit Annual PCP Team Chronic Disease Visit [facility] Start: 05-10-2024 Covid-19 Vaccine ( season) Covid-19 Vaccine ( season) [facility] Start: 05-10-2024 Covid-19 Vaccine () Covid-19 Vaccine () [facility] Start: 05-10-2024 Influenza vaccination Influenza Vaccine (#1) [facility] Start: 03-24-2024 End: 03-24-2024 Patient encounter procedure General Surg [facility] Comment on above: Colon Consult, last colon 12/04/2018, arthur swift hx of colon ca, 5 year repeat bjs Start: 03-18-2024 End: 03-18-2024 Patient encounter procedure 03/18/2024 5:40 PM EDT Office Visit Internal Medicine [facility] [address] [place] [address] 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 APRN.[employer] [address] [place] [address] 6 wk f/u [facility] Comment on above: 6 wk f/u Start: 03-18-2024 HEMOGLOBIN/HEMATOCRIT HEMOGLOBIN/HEMATOCRIT [facility] Start: 03-18-2024 Hepatitis B screening URINE ALBUMIN:CREATININE RATIO [facility] Start: 03-18-2024 SERUM CREATININE SERUM CREATININE [facility] Start: 03-05-2024 HEMOGLOBIN/HEMATOCRIT HEMOGLOBIN/HEMATOCRIT [facility] Start: 03-05-2024 SERUM CREATININE SERUM CREATININE [facility] Start: 02-28-2024 End: 02-28-2024 Patient encounter procedure 02/28/2024 11:30 AM EDT Office Visit General Surgery [address] [place] [address] Karl Kaufman MD [address] [phone] Colon Consult, last colon 12/04/2018, family hx of colon ca, 5 year repeat bjs General Surgery Comment on above: Colon Consult, last colon 12/04/2018, fam jeniffer hx of colon ca, 5 year repeat bjs Start: 02-26-2024 ANNUAL PCP TEAM CHRONIC DISEASE VISIT ANNUAL PCP TEAM CHRONIC DISEASE VISIT [facility] Start: 02-26-2024 Hemoglobin A1c measurement HbA1C [facility] Start: 02-04-2024 End: 02-04-2024 Patient encounter procedure 02/04/2024 12:00 PM EDT Office Visit General Surgery [address] [place], [place] [address] Karl Kaufman MD [address] [phone] 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]; [...] EDT Office Visit Internal Medicine [facility] [address] [place], [place] [phone] 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 APRN.[employer] [address] [place], [place] [phone] 3 month follow up [facility] Medicine [facility] Comment on above: 3 month follow up Start: 01-03-2024 HEMOGLOBIN/HEMATOCRIT HEMOGLOBIN/HEMATOCRIT [facility] Start: 01-03-2024 SERUM CREATININE SERUM CREATININE [facility] Start: 12-29-2023 HEMOGLOBIN/HEMATOCRIT HEMOGLOBIN/HEMATOCRIT [facility] Start: 12-29-2023 Hepatitis B surface antibody level LDL CHOLESTEROL [facility] Start: 12-29-2023 SERUM CREATININE SERUM CREATININE [facility] Start: 12-08-2023 Prostate specific antigen measurement Prostate Cancer Screening Discussion [facility] Start: 12-05-2023 Colonoscopy COLONOSCOPY [facility] Start: 12-05-2023 COLORECTAL CANCER SCREENING COLORECTAL CANCER SCREENING [facility] Start: 12-05-2023 Screening for malignant neoplasm of colon [facility] Start: 11-26-2023 End: 02-25-2024 Hemoglobin A1c in Blood [facility] Work Phone: Comment on above: Expected: 11/26/2023, Expires: 4 Start: 11-26-2023 End: 02-25-2024 Thyrotropin [Units/volume] in Serum or Plasma [facility] Work Phone: Comment on above: Expected: 11/26/2023, Expires: 4 Start: 11-24-2023 ANNUAL PCP TEAM CHRONIC DISEASE VISIT ANNUAL PCP TEAM CHRONIC DISEASE VISIT [facility] Start: 11-24-2023 BP CONTROLLED (<130/80) BP CONTROLLED (<130/80) [facility] Start: 10-25-2023 [facility] Start: 10-13-2023 HEMOGLOBIN/HEMATOCRIT HEMOGLOBIN/HEMATOCRIT [facility] Start: 10-13-2023 Hepatitis B surface antibody level LDL CHOLESTEROL [facility] Start: 10-13-2023 SERUM CREATININE SERUM CREATININE [facility] Start: 10-04-2023 BP CONTROLLED (<130/80) BP CONTROLLED (<130/80) [facility] Start: 09-15-2023 HEMOGLOBIN/HEMATOCRIT HEMOGLOBIN/HEMATOCRIT [facility] Start: 09-15-2023 Hepatitis B screening URINE ALBUMIN:CREATININE RATIO [facility] Start: 09-15-2023 SERUM CREATININE SERUM CREATININE [facility] Start: 08-25-2023 ANNUAL PCP TEAM CHRONIC DISEASE VISIT ANNUAL PCP TEAM CHRONIC DISEASE VISIT [facility] Start: 08-04-2023 HEMOGLOBIN/HEMATOCRIT HEMOGLOBIN/HEMATOCRIT [facility] Start: 08-04-2023 SERUM CREATININE SERUM CREATININE [facility] Start: 08-03-2023 BP CONTROLLED (<130/80) BP CONTROLLED (<130/80) [facility] Start: 07-21-2023 End: 10-20-2023 CBC W Auto Differential panel - Blood CBC + DIFF Lab STAT Kidney replaced by transplant Expected: 07/21/2023 (Approximate), Expires: 10/20/2023 [facility] Work Phone: Comment on above: Expected: 07/21/2023 (Approximate), Expi res: 10/20/2023 Start: 07-21-2023 End: 10-20-2023 Comprehensive metabolic 2000 panel - Serum or Plasma COMP METABOLIC PANEL Lab STAT Kidney replaced by transplant Expected: 07/21/2023 (Approximate), Expires: 10/20/2023 [facility] Work Phone: Comment on above: Expected: 07/21/2023 (Approximate), Expi res: 10/20/2023 Start: 07-15-2023 End: 10-14-2023 ALLOSURE KIDNEY [facility] Work Phone: Comment on above: Expected: 07/15/2023, Expires: 4 Start: 07-15-2023 End: 07-14-2024 KID/URIAS REC POST TX DSA [facility] Work Phone: Comment on above: Expected: 07/15/2023, Expires: 4 Start: 07-13-2023 ANNUAL PCP TEAM CHRONIC DISEASE VISIT ANNUAL PCP TEAM CHRONIC DISEASE VISIT [facility] Start: 07-05-2023 BP CONTROLLED (<130/80) BP CONTROLLED (<130/80) [facility] Start: 07-02-2023 HEMOGLOBIN/HEMATOCRIT HEMOGLOBIN/HEMATOCRIT [facility] Start: 07-02-2023 SERUM CREATININE SERUM CREATININE [facility] Start: 06-08-2023 HEMOGLOBIN/HEMATOCRIT HEMOGLOBIN/HEMATOCRIT [facility] Start: 06-08-2023 SERUM CREATININE SERUM CREATININE [facility] Start: 05-10-2023 Covid-19 Vaccine ( season) Covid-19 Vaccine () [facility] Start: 05-10-2023 Influenza vaccination [facility] Start: 04-10-2023 ANNUAL PCP TEAM CHRONIC DISEASE VISIT ANNUAL PCP TEAM CHRONIC DISEASE VISIT [facility] Start: 04-10-2023 BP CONTROLLED (<130/80) BP CONTROLLED (<130/80) [facility] Start: 03-18-2023 End: 05-18-2023 ALLOSURE KIDNEY ALLOSURE KIDNEY Lab Routine Encounter for aftercare following kidney transplant Expected: 03/18/2023, Expires: 05/18/2023 [facility] Work Phone: Comment on above: Expected: 03/18/2023, Expires: 3 Start: 03-18-2023 End: 03-13-2024 KID/URIAS REC POST TX DSA KID/URIAS REC POST TX DSA ALLOGEN Routine Encounter for aftercare following kidney transplant Expected: 03/18/2023, Expires: 03/13/2024 [facility] Work Phone: Comment on above: Expected: 03/18/2023, Expires: 4 Start: 03-14-2023 [facility] Start: 03-03-2023 HEMOGLOBIN/HEMATOCRIT HEMOGLOBIN/HEMATOCRIT [facility] Start: 03-03-2023 Hepatitis B surface antibody level LDL CHOLESTEROL [facility] Start: 03-03-2023 SERUM CREATININE SERUM CREATININE [facility] Start: 02-13-2023 HEMOGLOBIN/HEMATOCRIT HEMOGLOBIN/HEMATOCRIT [facility] Start: 02-13-2023 Hepatitis B surface antibody level LDL CHOLESTEROL [facility] Start: 02-13-2023 SERUM CREATININE SERUM CREATININE [facility] Start: 02-09-2023 Glaucoma screening Dilated Retinal Exam [facility] Start: 02-09-2023 Hepatitis C antibody, confirmatory test DILATED RETINAL EXAM [facility] Start: 01-12-2023 HEMOGLOBIN/HEMATOCRIT HEMOGLOBIN/HEMATOCRIT [facility] Start: 01-12-2023 Hepatitis B surface antibody level LDL CHOLESTEROL [facility] Start: 01-12-2023 SERUM CREATININE SERUM CREATININE [facility] Start: 01-10-2023 Hemoglobin A1c measurement HbA1C [facility] Start: 01-10-2023 Hemoglobin A1c/Hemoglobin.total in Blood HBA1C [facility] Start: 01-02-2023 End: 03-04-2023 Basic metabolic 2000 panel - Serum or Plasma BASIC METABOLIC PNL Lab STAT Kidney replaced by transplant Expected: 01/02/2023 (Approximate), Expires: 03/04/2023 [facility] Work Phone: Comment on above: Expected: 01/02/2023 (Approximate), Expi res: 03/04/2023 Start: 01-02-2023 End: 03-04-2023 Tacrolimus [Mass/volume] in Blood TACROLIMUS/FK-506 BL Lab STAT Kidney replaced by transplant Expected: 01/02/2023 (Approximate), Expires: 03/04/2023 [facility] Work Phone: Comment on above: Expected: 01/02/2023 (Approximate), Expi res: 03/04/2023 Start: 12-31-2022 End: 03-02-2023 ALLOSURE KIDNEY ALLOSURE KIDNEY Lab Routine Kidney replaced by transplant Expected: 12/31/2022, Expires: 03/02/2023 [facility] Work Phone: Comment on above: Expected: 12/31/2022, Expires: 3 Start: 12-31-2022 End: 12-31-2023 KID/URIAS REC POST TX DSA KID/URIAS REC POST TX DSA ALLOGEN Routine Kidney replaced by transplant Expected: 12/31/2022, Expires: 12/31/2023 [facility] Work Phone: Comment on above: Expected: 12/31/2022, Expires: 4 Start: 12-31-2022 End: 03-02-2023 Protein/Creatinine [Mass Ratio] in Urine PROTEIN CREATININE RATIO Lab Routine Kidney replaced by transplant Expected: 12/31/2022, Expires: 03/02/2023 [facility] Work Phone: Comment on above: Expected: 12/31/2022, Expires: 3 Start: 12-25-2022 HEMOGLOBIN/HEMATOCRIT HEMOGLOBIN/HEMATOCRIT [facility] Start: 12-25-2022 Hepatitis B surface antibody level LDL CHOLESTEROL [facility] Start: 12-25-2022 SERUM CREATININE SERUM CREATININE [facility] Start: 11-24-2022 HEMOGLOBIN/HEMATOCRIT HEMOGLOBIN/HEMATOCRIT [facility] Start: 11-24-2022 SERUM CREATININE SERUM CREATININE [facility] Start: 11-17-2022 Hepatitis B surface antibody level LDL CHOLESTEROL [facility] Start: 11-05-2022 Patient discharge [facility] Start: 11-02-2022 Wound care [facility] Start: 11-01-2022 [facility] Start: 11-01-2022 Application of intermittent pneumatic compression device [facility] Start: 11-01-2022 Following clinical pathway protocol [facility] Start: 11-01-2022 Assessment of risk of venous thromboembolism [facility] Start: 11-01-2022 Care regimes management [facility] Start: 11-01-2022 Consultation [facility] Start: 11-01-2022 Consultation for treatment [facility] Start: 11-01-2022 Insertion of catheter into peripheral vein [facility] Start: 11-01-2022 Providing care according to standard [facility] Start: 11-01-2022 Referral to service [facility] Start: 11-01-2022 [facility] Start: 11-01-2022 Admission procedure [facility] Start: 11-01-2022 Amputation of toe Amputation Toe/Foot (Left) [facility] Start: 11-01-2022 Verification routine [facility] Start: 11-01-2022 Admission procedure [facility] Start: 11-01-2022 Fluoroscopic guidance O.R. Fluoro for C-Arm [facility] Start: 11-01-2022 Radiography of foot Foot 2 Views [facility] Start: 11-01-2022 Electrocardiographic procedure [facility] Start: 11-01-2022 End: 11-01-2022 Blood culture [facility] Start: 11-01-2022 End: 11-02-2022 [facility] Start: 10-13-2022 ANNUAL PCP TEAM CHRONIC DISEASE VISIT ANNUAL PCP TEAM CHRONIC DISEASE VISIT [facility] Start: 10-13-2022 End: 12-13-2022 Hemoglobin A1c in Blood HGB A1C Lab Routine Type 1 diabetes mellitus on insulin therapy (HCC) Expected: 10/13/2022, Expires: 12/13/2022 [facility] Work Phone: Comment on above: Expected: 10/13/2022, Expires: Start: 10-13-2022 Hemoglobin A1c/Hemoglobin.total in Blood HBA1C [facility] Start: 08-25-2022 End: 10-25-2022 ALBUMIN/CREAT RATIO RND UR ALBUMIN/CREAT RATIO RND UR Lab Routine Diabetic polyneuropathy associated with type 2 diabetes mellitus (HCC) Expected: 08/25/2022, Expires: 10/25/2022 [facility] Work Phone: Comment on above: Expected: 08/25/2022, Expires: Start: 07-11-2022 Hepatitis B screening URINE ALBUMIN:CREATININE RATIO [facility] Start: 07-07-2022 3 comp foot exam completed DIABETIC FOOT EXAM [facility] Start: 07-07-2022 Diabetic foot examination Diabetic Foot Exam [facility] Start: 07-07-2022 PNEUMOCOCCAL (3 - PPSV23 if available, else PCV20) PNEUMOCOCCAL (3 - PPSV23 if available, else PCV20) [facility] Start: 07-07-2022 PNEUMOCOCCAL (3 - PPSV23 or PCV20) PNEUMOCOCCAL (3 - PPSV23 or PCV20) [facility] Start: 07-07-2022 Pneumococcal vaccination Pneumococcal Vaccine (3 - PPSV23 or PCV20) [facility] Start: 05-10-2022 Influenza vaccination INFLUENZA (#1) [facility] Start: 04-03-2022 Blood chemistry [facility] Work Phone: Start: 04-02-2022 Blood chemistry [facility] Work Phone: Start: 04-01-2022 Blood chemistry [facility] Work Phone: Start: 03-31-2022 Blood chemistry [facility] Work Phone: Start: 03-30-2022 Blood chemistry [facility] Work Phone: Start: 03-29-2022 Blood chemistry [facility] Work Phone: Start: 03-28-2022 Patient discharge [facility] Work Phone: Start: 03-27-2022 Referral to service [facility] Work Phone: Start: 03-26-2022 Blood culture [facility] Work Phone: Start: 03-26-2022 Vacuum assisted skin closure [facility] Work Phone: Start: 03-25-2022 [facility] Work Phone: Start: 03-24-2022 Referral to occupational therapist [facility] Work Phone: Start: 03-24-2022 Referral to service [facility] Work Phone: Start: 03-24-2022 Provision of activity privileges [facility] Work Phone: Start: 03-24-2022 [facility] Work Phone: Start: 03-24-2022 Care planning and problem solving actions [facility] Work Phone: Start: 03-24-2022 Following clinical pathway protocol [facility] Work Phone: Start: 03-24-2022 Assessment of risk of venous thromboembolism [facility] Work Phone: Start: 03-24-2022 Care regimes management [facility] Work Phone: Start: 03-24-2022 Consultation [facility] Work Phone: Start: 03-24-2022 Consultation for treatment [facility] Work Phone: Start: 03-24-2022 Documentation procedure [facility] Work Phone: Start: 03-24-2022 Fall prevention [facility] Work Phone: Start: 03-24-2022 Incentive spirometry [facility] Work Phone: Start: 03-24-2022 Insertion of catheter into peripheral vein [facility] Work Phone: Start: 03-24-2022 Introduction of urinary catheter [facility] Work Phone: Start: 03-24-2022 Measuring intake and output [facility] Work Phone: Start: 03-24-2022 Patient referral to dietitian [facility] Work Phone: Start: 03-24-2022 Providing care according to standard [facility] Work Phone: Start: 03-24-2022 Provision of activity privileges [facility] Work Phone: Start: 03-24-2022 Referral to optical worker [facility] Work Phone: Start: 03-24-2022 Referral to hr analyst [facility] Work Phone: Start: 03-24-2022 Referral to service [facility] Work Phone: Start: 03-24-2022 Skin care [facility] Work Phone: Start: 03-24-2022 Vital signs measurements [facility] Work Phone: Start: 03-24-2022 [facility] Work Phone: Start: 03-24-2022 Verification routine [facility] Work Phone: Start: 03-24-2022 Admission procedure [facility] Work Phone: Start: 03-24-2022 Bacterial nucleic acid assay [facility] Work Phone: Start: 03-24-2022 End: 03-24-2022 [facility] Work Phone: Start: 03-24-2022 End: 03-24-2022 Blood culture [facility] Work Phone: Start: 03-24-2022 Patient referral to dietitian [facility] Work Phone: Start: 03-08-2022 End: 05-08-2022 Hemoglobin A1c in Blood HGB A1C Lab Routine Kidney replaced by transplant Expected: 03/08/2022, Expires: 05/08/2022 [facility] Work Phone: Comment on above: Expected: 03/08/2022, Expires: 2 Start: 12-20-2021 End: 02-19-2022 CLINICAL TRIAL DRAW CLINICAL TRIAL DRAW Lab Routine Research subject Expected: 12/20/2021, Expires: 02/19/2022 [facility] Work Phone: Comment on above: Expected: 12/20/2021, Expires: 2 Start: 10-20-2021 Hepatitis C antibody, confirmatory test DILATED RETINAL EXAM [facility] Start: 10-11-2021 Hemoglobin A1c/Hemoglobin.total in Blood HBA1C [facility] Start: 09-14-2021 Emergency department visit high/urgent severity EMERGENCY DEPT VISIT [facility] Work Phone: Start: 09-14-2021 Iv infusion hydration each additional hour HYDRATE IV INFUSION ADD-ON [facility] Work Phone: Start: 09-14-2021 Iv infusion hydration initial 31 min-1 hour HYDRATION IV INFUSION INIT [facility] Work Phone: Start: 09-01-2021 Pneumococcal vaccination Pneumococcal Vaccine (3 of 3 - PPSV23 or PCV20) [facility] Start: 09-01-2021 Pneumococcal Vaccine: 50+ (3 of 3 - PCV20 or PCV21) Pneumococcal Vaccine: 50+ (3 of 3 - PCV20 or PCV21) [facility] Start: 09-01-2021 Pneumococcal Vaccine: 50+ (3 of 3 - PPSV23, PCV20 or PCV21) Pneumococcal Vaccine: 50+ (3 of 3 - PPSV23, PCV20 or PCV21) [facility] Start: 03-22-2021 COVID-19 VACCINE (4 - Booster) COVID-19 VACCINE (4 - Booster) [facility] Start: 03-15-2021 COVID-19 VACCINE (4 - Booster) COVID-19 VACCINE (4 - Booster) [facility] Start: 02-15-2021 COVID-19 VACCINE (4 - Booster for Moderna series) COVID-19 VACCINE (4 - Booster for Moderna series) [facility] Start: 02-15-2021 COVID-19 VACCINE (4 - Booster) COVID-19 VACCINE (4 - Booster) [facility] Start: 02-15-2021 Covid-19 Vaccine (4 - Moderna risk series) Covid-19 Vaccine (4 - Moderna risk series) [facility] Start: 01-18-2021 Covid-19 Vaccine (3 - Moderna risk series) Covid-19 Vaccine (3 - Moderna risk series) [facility] Start: 2018 SHINGRIX VACCINE (1 of 2) SHINGRIX VACCINE (1 of 2) [facility] Start: 11-07-2017 TWO PNEUMOVAX 5 YEARS APART PRIOR TO AGE 65 (#2) TWO PNEUMOVAX 5 YEARS APART PRIOR TO AGE 65 (#2) [facility] Start: 2013 COLOGUARD (FIT-DNA) COLOGUARD (FIT-DNA) [facility] Start: [address] COLONOGRAPHY [facility] Start: 2013 FECAL OCCULT BLOOD FECAL OCCULT BLOOD [facility] Start: 2013 Prostate specific antigen measurement Prostate Cancer Screening Discussion [facility] Start: 2013 Screening for malignant neoplasm of colon [facility] Start: 2013 SIGMOIDOSCOPY SIGMOIDOSCOPY [facility] Start: 12-08-1987 HEPATITIS A (1 of 2 - Risk 2-dose series) HEPATITIS A (1 of 2 - Risk 2-dose series) [facility] Start: 12-08-1987 Hepatitis A Vaccine (1 of 2 - Risk 2-dose series) Hepatitis A Vaccine (1 of 2 - Risk 2-dose series) [facility] Start: 12-08-1987 SHINGRIX VACCINE (1 of 2) SHINGRIX VACCINE (1 of 2) [facility] Start: 1986 Anxiety Screening Anxiety Screening [facility] Start: 1986 BP CONTROLLED (<130/80) BP CONTROLLED (<130/80) [facility] in Start: 1969 HEPATITIS A (1 of 2 - Risk 2-dose series) HEPATITIS A (1 of 2 - Risk 2-dose series) [facility] End: 07-13-2024 25-hydroxyvitamin D3 [Mass/volume] in Serum or Plasma VITAMIN D 25 HYDROXY Lab Routine Kidney replaced by transplant Vitamin D deficiency Every 3 months for 100 Occurrences starting 07/15/2023 until 07/13/2024, 1 completed [facility] Work Phone: Comment on above: Every 3 months for 100 Occurrences start ing 07/15/2023 until 07/13/2024, 1 completed End: 07-25-2024 25-hydroxyvitamin D3 [Mass/volume] in Serum or Plasma VITAMIN D 25 HYDROXY Lab Routine Kidney replaced by transplant High risk medication use Vitamin D deficiency Every 3 months for 50 Occurrences starting 07/25/2023 until 07/25/2024 [facility] Work Phone: Comment on above: Every 3 months for 50 Occurrences starti ng 07/25/2023 until 07/25/2024 Acid fast bacilli culture [facility] Work Phone: Acid fast bacilli culture [facility] End: 03-13-2024 ALBUMIN/CREAT RATIO RND UR ALBUMIN/CREAT RATIO RND UR Lab Routine Encounter for aftercare following kidney transplant Once per week for 4 Occurrences starting 03/14/2023 until 03/13/2024 [facility] Work Phone: Comment on above: Once per week for 4 Occurrences starting 03/14/2023 until 03/13/2024 Anaerobic microbial culture Anaerobic [facility] Work Phone: Anaerobic microbial culture [facility] Bacteria identified in Blood by Culture Blood Culture [facility] Bacteria identified in Blood by Culture Blood Culture [facility] Bacteria identified in Urine by Culture URINE CULTURE Microbiology Routine Kidney replaced by transplant Ordered: 12/31/2022 [facility] Work Phone: Comment on above: Ordered: 12/31/2022 Bacterial nucleic acid assay [facility] Work Phone: Bilirubin measurement, urine [facility] End: 06-08-2023 BK VIRUS PCR,QUANT,P BK VIRUS PCR,QUANT,P Lab Routine Kidney replaced by transplant Once per month for 100 Occurrences starting 06/08/2022 until 06/08/2023, 2 completed [facility] Work Phone: Comment on above: Once per month for 100 Occurrences start ing 06/08/2022 until 06/08/2023, 2 completed End: 07-15-2024 BK VIRUS PCR,QUANT,P BK VIRUS PCR,QUANT,P Lab Routine Kidney replaced by transplant Every 3 months for 100 Occurrences starting 07/15/2023 until 07/15/2024, 2 completed [facility] Work Phone: Comment on above: Every 3 months for 100 Occurrences start ing 07/15/2023 until 07/15/2024, 2 completed End: 07-25-2024 BK VIRUS PCR,QUANT,P BK VIRUS PCR,QUANT,P Lab Routine Kidney replaced by transplant High risk medication use Every 3 months for 50 Occurrences starting 07/25/2023 until 07/25/2024 [facility] Work Phone: Comment on above: Every 3 months for 50 Occurrences starti ng 07/25/2023 until 07/25/2024 Blood culture [facility] Work Phone: C reactive protein [Mass/volume] in Serum or Plasma [facility] Work Phone: End: 06-08-2023 CBC W Auto Differential panel - Blood CBC + DIFF Lab Routine Kidney replaced by transplant Once per month for 100 Occurrences starting 06/08/2022 until 06/08/2023, 1 completed [facility] Work Phone: Comment on above: Once per month for 100 Occurrences start ing 06/08/2022 until 06/08/2023, 1 completed End: 03-13-2024 CBC W Auto Differential panel - Blood CBC + DIFF Lab Routine Encounter for aftercare following kidney transplant Once per week for 4 Occurrences starting 03/14/2023 until 03/13/2024 [facility] Work Phone: Comment on above: Once per week for 4 Occurrences starting 03/14/2023 until 03/13/2024 End: 07-15-2024 CBC W Auto Differential panel - Blood CBC + DIFF Lab Routine Kidney replaced by transplant Once per month for 100 Occurrences starting 07/15/2023 until 07/15/2024 [facility] Work Phone: Comment on above: Once per month for 100 Occurrences start ing 07/15/2023 until 07/15/2024 End: 07-25-2024 CBC W Auto Differential panel - Blood CBC + DIFF Lab Routine Kidney replaced by transplant High risk medication use Once per month for 99 Occurrences starting 07/25/2023 until 07/25/2024 [facility] Work Phone: Comment on above: Once per month for 99 Occurrences starti ng 07/25/2023 until 07/25/2024 Clostridioides diffi cile toxin genes [Presence] in Stool by CARMEN with probe detection C. DIFFICILE PCR Lab Routine Diarrhea, unspecified type Ordered: 11/26/2023 [facility] Work Phone: Comment on above: Ordered: 11/26/2023 End: 06-08-2023 CMV DNA DETECTION AND QUANT CMV DNA DETECTION AND QUANT Lab Routine Kidney replaced by transplant Once per month for 100 Occurrences starting 06/08/2022 until 06/08/2023, 1 completed [facility] Work Phone: Comment on above: Once per month for 100 Occurrences start ing 06/08/2022 until 06/08/2023, 1 completed End: 06-08-2023 Comprehensive metabolic 2000 panel - Serum or Plasma COMP METABOLIC PANEL Lab Routine Kidney replaced by transplant Once per month for 100 Occurrences starting 06/08/2022 until 06/08/2023, 1 completed [facility] Work Phone: Comment on above: Once per month for 100 Occurrences start ing 06/08/2022 until 06/08/2023, 1 completed End: 03-13-2024 Comprehensive metabolic 2000 panel - Serum or Plasma COMP METABOLIC PANEL Lab Routine Encounter for aftercare following kidney transplant Once per week for 4 Occurrences starting 03/14/2023 until 03/13/2024 [facility] Work Phone: Comment on above: Once per week for 4 Occurrences starting 03/14/2023 until 03/13/2024 End: 07-15-2024 Comprehensive metabolic 2000 panel - Serum or Plasma COMP METABOLIC PANEL Lab Routine Kidney replaced by transplant Once per month for 100 Occurrences starting 07/15/2023 until 07/15/2024 [facility] Work Phone: Comment on above: Once per month for 100 Occurrences start ing 07/15/2023 until 07/15/2024 End: 07-25-2024 Comprehensive metabolic 2000 panel - Serum or Plasma COMP METABOLIC PANEL Lab Routine Kidney replaced by transplant High risk medication use Once per month for 99 Occurrences starting 07/25/2023 until 07/25/2024 [facility] Work Phone: Comment on above: Once per month for 99 Occurrences starti ng 07/25/2023 until 07/25/2024 End: 03-24-2025 EGD DIAGNOSTIC EGD DIAGNOSTIC Endoscopy Routine Diarrhea, unspecified type 1 Occurrences starting 03/24/2024 until 03/24/2025 [facility] Work Phone: Comment on above: 1 Occurrences starting 03/24/2024 until 03/24/2025 ENTERIC BACTERIAL PA KATHERIN BY PCR ENTERIC BACTERIAL PANEL BY PCR Lab Routine Diarrhea, unspecified type Ordered: 11/26/2023 [facility] Work Phone: Comment on above: Ordered: 11/26/2023 Erythrocyte sediment ation rate [facility] Work Phone: FECAL LACTOFERRIN/LEUKOCYTES FEC AL LACTOFERRIN/LEUKOCYTES Lab Routine Diarrhea, unspecified type Ordered: 11/26/2023 [facility] Work Phone: Comment on above: Ordered: 11/26/2023 End: 03-24-2025 Flexible sigmoidoscopy study COLONOSCOPY DIAGNOSTIC Endoscopy Routine Diarrhea, unspecified type 1 Occurrences starting 03/24/2024 until 03/24/2025 [facility] Comment on above: 1 Occurrences starting 03/24/2024 until 03/24/2025 Fungal Culture Fungal Culture [facility] Work Phone: Fungal Smear Fungal Smear [facility] Work Phone: Giardia lamblia+Cryptosporidium sp Ag [Presence] in Stool by Immunoassay CRYPTOSPORIDIUM AND GIARDIA ANTIGENS BY EIA Microbiology Routine Diarrhea, unspecified type Ordered: 11/26/2023 [facility] Work Phone: Comment on above: Ordered: 11/26/2023 Hemoglobin [Presence ] in Urine [facility] INFLUENZA VACCINE QUADRIVALENT 6 MO - 64 YRS IM INFLUENZA VACCINE QUADRIVALENT 6 MO - 64 YRS IM Immunization/Injection Routine Need for influenza vaccination Ordered: 07/13/2022 [facility] Work Phone: Comment on above: Ordered: 07/13/2022 End: 07-30-2024 KID/URIAS REC POST TX DSA KID/URIAS REC POST TX DSA ALLOGEN Routine Kidney replaced by transplant Every 3 months for 4 Occurrences starting 07/31/2023 until 07/30/2024 [facility] Work Phone: Comment on above: Every 3 months for 4 Occurrences startin g 07/31/2023 until 07/30/2024 End: 09-24-2023 Lipid 1996 panel - Serum or Plasma LIPID PANEL BASIC Lab Routine Kidney replaced by transplant Every 6 months for 2 Occurrences starting 09/24/2022 until 09/24/2023 [facility] Work Phone: Comment on above: Every 6 months for 2 Occurrences startin g 09/24/2022 until 09/24/2023 End: 07-25-2024 Lipid 1996 panel - Serum or Plasma LIPID PANEL BASIC Lab Routine Kidney replaced by transplant High risk medication use Every 3 months for 50 Occurrences starting 07/25/2023 until 07/25/2024 [facility] Work Phone: Comment on above: Every 3 months for 50 Occurrences starti ng 07/25/2023 until 07/25/2024 Magnesium [Mass/volu me] in Serum or Plasma [facility] Work Phone: End: 06-08-2023 Magnesium [Mass/volume] in Serum or Plasma MAGNESIUM BLD Lab Routine Kidney replaced by transplant Once per month for 100 Occurrences starting 06/08/2022 until 06/08/2023, 1 completed [facility] Work Phone: Comment on above: Once per month for 100 Occurrences start ing 06/08/2022 until 06/08/2023, 1 completed End: 03-13-2024 Magnesium [Mass/volume] in Serum or Plasma MAGNESIUM BLD Lab Routine Encounter for aftercare following kidney transplant Once per week for 4 Occurrences starting 03/14/2023 until 03/13/2024 [facility] Work Phone: Comment on above: Once per week for 4 Occurrences starting 03/14/2023 until 03/13/2024 End: 07-15-2024 Magnesium [Mass/volume] in Serum or Plasma MAGNESIUM BLD Lab Routine Kidney replaced by transplant Once per month for 100 Occurrences starting 07/15/2023 until 07/15/2024 [facility] Work Phone: Comment on above: Once per month for 100 Occurrences start ing 07/15/2023 until 07/15/2024 End: 07-25-2024 Magnesium [Mass/volume] in Serum or Plasma MAGNESIUM BLD Lab Routine Kidney replaced by transplant High risk medication use Once per month for 99 Occurrences starting 07/25/2023 until 07/25/2024 [facility] Work Phone: Comment on above: Once per month for 99 Occurrences starti ng 07/25/2023 until 07/25/2024 Measurement of keton es in urine using dipstick [facility] Microorganism identi fied in Unspecified specimen by Culture [facility] Microscopic observat ion [Identifier] in Unspecified specimen by Gram stain Gram Stain [facility] Work Phone: Microscopic urinalysis [facility] Mycobacterium sp belkys ntified in Unspecified specimen by Organism specific culture [facility] Work Phone: Mycobacterium sp belkys ntified in Unspecified specimen by Organism specific culture [facility] End: 07-25-2024 Parathyrin.intact [Mass/volume] in Serum or Plasma PTH INTACT BLD Lab Routine Kidney replaced by transplant High risk medication use Vitamin D deficiency Every 3 months for 50 Occurrences starting 07/25/2023 until 07/25/2024 [facility] Work Phone: Comment on above: Every 3 months for 50 Occurrences starti ng 07/25/2023 until 07/25/2024 Patient Education [facility] Work Phone: Patient referral [facility] Work Phone: pH of Urine [facility] End: 06-08-2023 Phosphate [Mass/volume] in Serum or Plasma PHOSPHORUS INORGANIC Lab Routine Kidney replaced by transplant Once per month for 100 Occurrences starting 06/08/2022 until 06/08/2023, 1 completed [facility] Work Phone: Comment on above: Once per month for 100 Occurrences start ing 06/08/2022 until 06/08/2023, 1 completed End: 03-13-2024 Phosphate [Mass/volume] in Serum or Plasma PHOSPHORUS INORGANIC Lab Routine Encounter for aftercare following kidney transplant Once per week for 4 Occurrences starting 03/14/2023 until 03/13/2024 [facility] Work Phone: Comment on above: Once per week for 4 Occurrences starting 03/14/2023 until 03/13/2024 End: 07-15-2024 Phosphate [Mass/volume] in Serum or Plasma PHOSPHORUS INORGANIC Lab Routine Kidney replaced by transplant Once per month for 100 Occurrences starting 07/15/2023 until 07/15/2024 [facility] Work Phone: Comment on above: Once per month for 100 Occurrences start ing 07/15/2023 until 07/15/2024 End: 07-25-2024 Phosphate [Mass/volume] in Serum or Plasma PHOSPHORUS INORGANIC Lab Routine Kidney replaced by transplant High risk medication use Once per month for 99 Occurrences starting 07/25/2023 until 07/25/2024 [facility] Work Phone: Comment on above: Once per month for 99 Occurrences starti ng 07/25/2023 until 07/25/2024 Protein/Creatinine [ Mass Ratio] in Urine [facility] Work Phone: Protein/Creatinine [ Mass Ratio] in Urine PROTEIN CREATININE RATIO Lab Routine Kidney replaced by transplant 03/08/2022 4:08 PM EDT [facility] Work Phone: End: 02-26-2024 PVR LEG W/EXC ROLY VAS LAB PVR LEG W/EXC ROLY [facility] LAB Vascular Lab Routine Left leg claudication (HCC) 1 Occurrences starting 02/25/2023 until 02/26/2024 [facility] Work Phone: Comment on above: 1 Occurrences starting 02/25/2023 until 02/26/2024 Specific gravity of Urine [facility] SURGICAL PATHOLOGY [facility] Work Phone: Comment on above: Release Upon Ordering for 1 Occurrences starting 04/01/2024, 1 completed Tacrolimus [Mass/vol ume] in Blood [facility] Work Phone: End: 06-08-2023 Tacrolimus [Mass/volume] in Blood TACROLIMUS/FK-506 BL Lab Routine Kidney replaced by transplant Once per month for 100 Occurrences starting 06/08/2022 until 06/08/2023, 1 completed [facility] Work Phone: Comment on above: Once per month for 100 Occurrences start ing 06/08/2022 until 06/08/2023, 1 completed End: 03-13-2024 Tacrolimus [Mass/volume] in Blood TACROLIMUS/FK-506 BL Lab Routine Encounter for aftercare following kidney transplant Once per week for 4 Occurrences starting 03/14/2023 until 03/13/2024 [facility] Work Phone: Comment on above: Once per week for 4 Occurrences starting 03/14/2023 until 03/13/2024 End: 07-15-2024 Tacrolimus [Mass/volume] in Blood TACROLIMUS/FK-506 BL Lab Routine Kidney replaced by transplant Once per month for 100 Occurrences starting 07/15/2023 until 07/15/2024 [facility] Work Phone: Comment on above: Once per month for 100 Occurrences start ing 07/15/2023 until 07/15/2024 End: 07-25-2024 Tacrolimus [Mass/volume] in Blood TACROLIMUS/FK-506 BL Lab Routine Kidney replaced by transplant High risk medication use Once per month for 99 Occurrences starting 07/25/2023 until 07/25/2024 [facility] Work Phone: Comment on above: Once per month for 99 Occurrences starti ng 07/25/2023 until 07/25/2024 UA DIP, URINE (POC) UA DIP, URIN E (POC) Lab Routine Screening for genitourinary condition 1 Occurrences starting 05/05/2025 [facility] Work Phone: Comment on above: 1 Occurrences starting 05/05/2025 End: 03-13-2024 Urinalysis complete panel - Urine URINALYSIS WITH MICROSCOPIC, REFLEX CULTURE Lab Routine Encounter for aftercare following kidney transplant Once per week for 4 Occurrences starting 03/14/2023 until 03/13/2024 [facility] Work Phone: Comment on above: Once per week for 4 Occurrences starting 03/14/2023 until 03/13/2024 Urinalysis, blood, qualitative [facility] Urine culture [facility] Urine culture [facility] Urine culture [facility] Urine dipstick for glucose [facility] Urine dipstick for l eukocyte esterase [facility] Urine dipstick for nitrite [facility] Urine dipstick for protein [facility] Urine examination [facility] Urine microscopy: ep ithelial cells [facility] Urine Microscopy: wh ite cells [facility] Urobilinogen [Presen ce] in Urine [facility] End: 02-26-2024 US LEG VEIN DVT UNL VAS LAB US LEG VEIN DVT UNL V[facility] LAB Vascular Lab Routine Pain of right lower extremity 1 Occurrences starting 02/25/2023 until 02/26/2024 [facility] Work Phone: Comment on above: 1 Occurrences starting 02/25/2023 until 02/26/2024 Wound Culture Wound Culture [facility] Work Phone: [facility] Immunizations Immunization Date Immunization Notes Care Provider Priyanka Begum-10-2024 influenza, seasonal, injectable Amanda RUIZ Work Phone: [facility] 06-18-2024 influenza virus vaccine, unspecified formulation 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.[employer] Work Phone: [facility] 07-13-2023 influenza, injectabl e, quadrivalent, contains preservative Immunization Tali Work Phone: [facility] 07-13-2023 influenza virus vaccine, unspecified formulation 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.[employer] Work Phone: [facility] 07-07-2021 influenza, injectabl e, quadrivalent, contains preservative [facility] Work Phone: [facility] Work Phone: 07-07-2021 pneumococcal conjuga te vaccine, 13 valent [facility] Work Phone: [facility] Work Phone: 07-07-2021 influenza virus vaccine, unspecified formulation Xiang Perez PA-C Work Phone: [facility] 06-23-[address] Zaida Gaston Work Phone: [facility] 12-29-2020 Covid (Moderna) Dr. Zaida xavier Work Phone: [facility] 12-08-2020 Covid (Moderna) Dr. Zaida xavier Work Phone: [facility] 12-06-2020 tuberculin skin test ; purified protein derivative solution, intradermal Zaida Gaston MD Work Phone: [facility] 11-24-2020 COVID-19 vaccine, fu ll dose (MODERNA) [facility] Work Phone: [facility] Work Phone: 06-09-2020 influenza virus vaccine, unspecified formulation [facility] Work Phone: [facility] Work Phone: 05-23-2020 influenza, seasonal, injectable [facility] Work Phone: [facility] Work Phone: 06-28-[address] Zaida Gaston Work Phone: [facility] 06-28-2019 influenza, seasonal, injectable, preservative free [facility] Work Phone: [facility] Work Phone: 03-16-2019 hepatitis B vaccine, adult dosage [facility] Work Phone: [facility] Work Phone: 11-17-2018 hepatitis B vaccine, adult dosage [facility] Work Phone: [facility] Work Phone: 10-21-2018 hepatitis B vaccine, adult dosage [facility] Work Phone: [facility] Work Phone: 09-22-2018 hepatitis B vaccine, adult dosage [facility] Work Phone: [facility] Work Phone: 06-24-2018 influenza, injectabl e, quadrivalent, preservative free Dr. Zaida Gaston Work Phone: [facility] 06-24-2018 influenza, seasonal, injectable Dr. Zaida Gaston Work Phone: [facility] 06-24-2018 influenza, seasonal, injectable, preservative free [facility] Work Phone: [facility] Work Phone: 05-19-2018 influenza, injectabl e, quadrivalent, contains preservative [facility] Work Phone: [facility] 07-23-[address] Zaida Gaston Work Phone: [facility] 07-23-2017 influenza, injectabl e, quadrivalent, contains preservative [facility] Work Phone: [facility] Work Phone: 07-23-2017 influenza, seasonal, injectable, preservative free [facility] Work Phone: [facility] Work Phone: 06-12-2016 influenza, injectabl e, quadrivalent, contains preservative [facility] Work Phone: [facility] Work Phone: 05-24-2015 tetanus toxoid, reduced diphtheria toxoid, and acellular pertussis vaccine, adsorbed [facility] Work Phone: [facility] Work Phone: 11-07-2012 pneumococcal polysaccharide vaccine, 23 valent [facility] Work Phone: [facility] Work Phone: NEGATED: Highlighted row has not occurred!07-13-2022 influenza, injectable, quadrivalent, contains preservative Zaida Gaston MD Work Phone: [facility] Work Phone: Comment on above: Deferred: OTHER - ve rified by Monik Chinchilla Payers Date Payer Category Payer Medicare (Managed Care) [facility] DUAL COMPLETE PPO SNP [id number] 2024 Unknown [id number] 2023 Self-pay [id number] 2023 Unknown [id number] 2022 Unknown [employer] ADV [facility] [employer] [id number] 2022-Present [phone] [address] [address] [place] [address] PPO [id number] 2021 Medicaid [id number] 2021 Medicare [id number] 2021 Unknown [id number] 2019 Medicare [id number] 2015 Medicare [id number] Unknown [id number] 2.16.840.1.875382.3.579.2. 462 Unknown [id number] 2.16.840.1.599765.3.579.2. 462 Unknown [id number] 2.16.840.1.250593.3.579.2. 462 Unknown [id number] 2.16.840.1.283698.3.579.2. 462 Unknown [id number] 2.16.840.1.179515.3.579.2. 462 Unknown [id number] 2.16.840.1.103346.3.579.2. 462 Unknown [id number] 2.16.840.1.083396.3.579.2. 462 Unknown [id number] 2.16.840.1.977695.3.579.2. 462 Unknown [id number] 2.16.840.1.408700.3.579.2. 462 Unknown [id number] 2.16.840.1.527628.3.579.2. 462 Unknown [id number] 2.16.840.1.904741.3.579.2. 462 Unknown [id number] 2.16.840.1.094084.3.579.2. 462 Unknown [id number] 2.16.840.1.056206.3.579.2. 462 Unknown [id number] 2.16.840.1.328323.3.579.2. 462 Unknown [id number] 2.16.840.1.203045.3.579.2. 462 Unknown [id number]. 462 Social History Date Type Detail Facility Start: 09-30-2014 End: 08-13-2023 Tobacco smoking status NHIS Never smoked tobacco [facility] Start: 09-30-2014 End: 07-13-2022 Tobacco use and exposure User of smokeless tobacco [facility] History of tobacco use Snuff User [facility] Start: 12-08-2021 End: 05-14-2025 Alcohol intake Ex-drinker (finding) [facility] Start: 08-14-2020 End: 07-04-2022 History SDOH Alcohol Frequency 1 [facility] Start: 08-14-2020 History SDOH Alcohol Std Drinks 98 [facility] Start: 08-14-2020 End: 07-04-2022 History SDOH Social Connections Phone 2 [facility] Start: 08-14-2020 History SDOH Social Connections Living 8 [facility] Start: 08-14-2020 History SDOH Physical Activity DPW 0 [facility] Start: 08-14-2020 End: 08-25-2022 History SDOH Financial 3 [facility] Start: 08-14-2020 Education 12 [facility] Start: 09-30-2014 End: 07-13-2022 Tobacco Comment snuff x 33 years [facility] Start: 1970 Sex Assigned At Male [facility] Start: 11-14-2021 End: 08-03-2022 Exposure to SARS-CoV-2 (event) Not sure [facility] Start: 09-18-2021 End: 11-11-2023 Tobacco smoking status NHIS Unknown if ever smoked [facility] Start: 10-06-2019 None [facility] Start: 10-06-2019 Spouse/ Significant Other;With Family [facility] Start: 10-07-2019 Chew [facility] Start: 12-22-2021 End: 01-01-2022 Exposure to SARS-CoV-2 (event) Unable to assess [facility] Start: 08-24-2022 End: 01-17-2023 History of Social function [facility] Start: 08-24-2022 End: 01-17-2023 Social connection and isolation panel [facility] Start: 08-10-2012 In a typical week, how many times do you talk on the telephone with family, friends, or neighbors? Patient refused [facility] Are you now , , , , never or living with a partner? Refused [facility] Do you feel stress - tense, restless, nervous, or anxious, or unable to sleep at night because your mind is troubled all the time - these days [OSQ] Not at all [facility] (I/We) worried anil er (my/our) food would run out before (I/we) got money to buy more. DK or Refused [facility] Start: 08-14-2020 Gender identity Identifies as male gender (finding) [facility] Start: 08-14-2020 Sexual orientation Heterosexual (finding) [facility] Start: 08-13-2023 Tobacco use and exposure Former smokeless tobacco user [facility] Start: 08-13-2023 Tobacco Comment snuff x 33 yearsQuit in 2020 [facility] Do you belong to any clubs or organizations such as samaritan groups, unions, fraternal or athletic groups, or school groups? No [facility] Are you now , , , , never or living with a partner? Living with partner [facility] How often to you hav e a drink containing alcohol? Monthly or less [facility] How many standard dr inks containing alcohol do you have on a typical day? 1 or 2 [facility] How often do you hav e 6 or more drinks on 1 occasion? Never [facility] Do you feel stress - tense, restless, nervous, or anxious, or unable to sleep at night because your mind is troubled all the time - these days [OSQ] To some extent [facility] Start: 07-22-2024 Sexual orientation Choose not to disclose [facility] Start: 11-19-2024 Sex Male (finding) [facility] At any time in the p ast 12 months, were you homeless or living in alf [including now]? Yes [facility] Medical Equipment Procedure Code Equipment Code Equipment [...] 19CM FDA Start: 08-27-2018 Insertion, catheter, hemodialysis FDA Start: 08-27-2018 Stent Inlay [place] 4.7fr Taper [place] Green Polymer Phreecoat 14cm Ureteral - [id number] Start: 03-09-2021 [id number], [id number], [id number], [id number], [id number] Start: 04-26-2021 End: 07-28-2024 Comment on above: [...] SUTURE,LIGA CLIP SM [id number] FDA Start: 08-08-2018 FDA Start: 08-08-2018 FDA Start: 08-08-2018 FDA Start: 08-08-2018 FDA Start: 08-08-2018 FDA Start: 08-08-2018 FDA Start: 08-08-2018 Stent 8fr Pigtail Curve Thin Leveler Helper Percuflex Metal 22cm Ureteral Large - [id number] Start: 04-22-2025 Stent Inlay [place] 4.7fr Taper [place] Green Polymer Phreecoat 14cm Ureteral - [id number] Start: 05-14-2025 Goals Date Patient Goal Desired Activity /State Personal health goal Personal health goal Personal health goal Comment on above: Formatting of this n ote might be different from the original. To get a kidney transplant Comment on above: Formatting of this n ote might be different from the original. To get a kidney transplant Functional Status Date Assessment Result Facility 04-17-2025 Functional status Chair [facility] Work Phone: 01-29-2025 Are you deaf, or do you have serious difficulty hearing No 01/29/2025 3:51 PM Deep iRco RN No [facility] 01-29-2025 Are you blind, or do you have serious difficulty seeing, even when wearing glasses Yes 01/29/2025 3:51 PM Deep Rico RN Yes [facility] 01-29-2025 Do you have serious difficulty walking or climbing stairs Yes 01/29/2025 3:51 PM Deep Rico, RN Yes [facility] 01-29-2025 Do you have difficul ty dressing or bathing No 01/29/2025 3:51 PM Deep Rico, RN No [facility] 01-29-2025 Because of a physica l, mental, or emotional condition, do you have difficulty doing errands alone such as visiting a physician's office or shopping Yes 01/29/2025 3:51 PM Deep Rico RN Yes [facility] 11-05-2022 Functional status Ambulates [facility] Work Phone: 03-28-2022 Functional status Ambulates;Bath room Privilege [facility] Work Phone: 09-20-2021 Functional status Dangle Feet [facility] Work Phone: 03-12-2021 Are you deaf, or do you have serious difficulty hearing No 03/12/2021 9:19 AM Yareli Hester, ANDER No [facility] 03-12-2021 Are you blind, or do you have serious difficulty seeing, even when wearing glasses No 03/12/2021 9:19 AM Yareli Hester RN No [facility] 03-12-2021 Do you have serious difficulty walking or climbing stairs No 03/12/2021 9:19 AM Yareli Hester RN No [facility] 03-12-2021 Do you have difficul ty dressing or bathing No 03/12/2021 9:19 AM Yareli Hester RN No [facility] 03-12-2021 Because of a physica l, mental, or emotional condition, do you have difficulty doing errands alone such as visiting a physician's office or shopping No 03/12/2021 9:19 AM Yareli Hester RN No [facility] Mental Status Date Assessment Result Facility 04-17-2025 Cognitive function Voice/Name [facility] Work Phone: 04-14-2025 Cognitive function Level Of Cons ciousness Follows Commands;Lethargic [facility] Work Phone: 04-04-2025 Cognitive function Voice/Name [facility] Work Phone: 01-29-2025 Because of a physica l, mental, or emotional condition, do you have serious difficulty concentrating, remembering, or making decisions No 01/29/2025 3:51 PM Deep Rico, RN No [facility] 01-26-2025 Cognitive function Awake;Alert;A ppropriate;Fol lows Commands [facility] Work Phone: 11-19-2024 Cognitive function Voice/Name [facility] Work Phone: 03-13-2023 Cognitive function Level Of Cons ciousness Awake;Alert;Follows Commands [facility] Work Phone: 11-04-2022 Cognitive function Voice/Name [facility] Work Phone: 08-28-2022 Cognitive function Level Of Cons ciousness Awake;Alert;Appropriate;Fol lows Commands [facility] Work Phone: 03-28-2022 Cognitive function Voice/Name [facility] Work Phone: 09-20-2021 Cognitive function Voice/Name [facility] Work Phone: 09-14-2021 Cognitive function Level Of Cons ciousness Awake;Alert;Appropriate;Fol lows Commands [facility] Work Phone: 03-12-2021 Because of a physica l, mental, or emotional condition, do you have serious difficulty concentrating, remembering, or making decisions No 03/12/2021 9:19 AM EDT Yareli Sevilla RN No [facility] Clinical Notes 11-26-2017 to 05-14-2025 Patient InstructionsGenoveva Begum MA - 05/14/2025 9:32 AM EDMariza Wilder APRN.[facility] - 05/14/2025 9:06 AM EDTTelephone Encounter - Jon Jacobsen - 05/13/2025 2:11 PM EDT Note Date & Type Note Facility 05-14-2025 Instructions Mariza Vences APRN.CNP - 05/14/2025 9:42 AM EDT YOU SHOULD SEEK MEDICAL ATTENTION IMMEDIATELY, EITHER HERE OR AT THE NEAREST EMERGENCY DEPARTMENT, IF ANY OF THE FOLLOWING OCCURS: You have a fever (temperature higher than 100.4 F / 38 C) or shaking chills. You feel nauseated or vomit. You have pain in your side or back/flank. You don t get better after taking all of your antibiotics.(If ordered) You have any new symptoms or concerns. You feel worse or do not improve. IF YOU DO NOT URINATE WITHIN THE NEXT 6 HOURS, GO TO THE EMERGENCY ROOM AND LET THEM KNOW YOU HAD A CATHETER REMOVED Contact our office and report to the nearest E.R. for: Severe pain Fever 101 or greater, with or without chills. Painful urination, difficult urination, or inability to urinate Nausea and/or vomiting that persists Blood and/or blood clots in urine is expected; however, urine that looks like tomato soup is not normal and should be reported immediately. If you develop a skin rash. Stop taking your medicines your doctor prescribed. documented in this encounter [facility] 05-14-2025 History of Presen t illness Narrative Patient here for trial voiding. Bladder filled with 180 cc's of Sterile Water. Catheter removed. Patient was able to void. Mariza Worrell notified. Catheter: Not reinserted..\ Voided 150 cc's Genoveva Begum MA Assessment/Plan: N20.0 Nephrolithiasis (primary encounter diagnosis) Z94.0 Kidney replaced by transplant (HCC) -Reviewed CTA imaging: atrophic [place] kidney. Nos tones or hydro Transplant kidney: punctate stone in LP (poss embedded) Nephroureteral stent preset -patient passed TOV today. Reviewed ED precautions - patient deferred metabolic testing at this time - stent extraction with Dr Sutton scheduled for 06/07 For stones: would like to monitor with AGA, KUB in 3 months but will see if any imaging is needed prior per Herman/transplant team -General stone prevention guidelines: Fluid intake- #1 reason why people form stones - not enough fluid! Recommend increasing water/fluid intake (2.5-3L/day or 80-100 ounces/day), including nighttime hydration. We recommend emptying your bladder and drinking 1-2 glasses of water prior to bed, then getting up at least once during the night to empty your bladder again and drinking 1 more glass of water before returning to bed. All fluids count but water is the best. [place] Intake- Recommend increasing dietary citrate intake. Adding more fruits & vegetables to your diet; in particular citrus fruits (asmita/limes/lemonade/melons/to matoes). One can add 4 oz of lemon juice diluted in 32 oz of water daily to start. If diet changes are too difficult we can prescribe a medication, potassium citrate, that can help increase your citrate levels. Sodium intake- We recommend a low sodium diet <2000mg/d. Read food labels, choose low sodium options, avoid canned, frozen or boxed meals, eat more fresh foods and possibly add a fish oil supplement daily (2000mg/d) Calcium intake - Recommend 2-3 servings of calcium per day. Not advisable for stone patients to restrict calcium intake as it is very important for good bone, muscle, and tissue health. RTC in 06/07 for stent extraction with Dr Sutton Medical Decision Making: Problems: Moderate: 2+ stable chronic illnesses Data: Unique test result(s) reviewed: 2 Unique test(s) ordered: 2 Risk: Moderate: Moderate risk from testing/treatment Medical Decision Making Level: 4 - Moderate Mariza Vences APRN.[employer] ========= Chief complaint: Kidney stones Italo Burgos is a 54 year old male who presents today for a Kidney stone management and prevention counseling. s/p PCNL with Dr Gates on 04/22 Patient underwent cystotomy with Dr Sutton on 05/03 with stent placement + kidney transplant ~ 5 years ago Pt currently: - fever, - chills, - nausea, - vomiting, - dysuria, - gross hematuria, - renal colic Current stone meds: flomax, trospium Previous stone procedures: - ESWL - URS + PCNL - STONES PASSED Age/date of onset: 2020 Personal/Family hx: +/+ (sister) stones, -/- () gout, +/+ (patient, sisters, brother) DM, -/- () prostate/ ca Body mass index is 25.34 kg/m . PAST MEDICAL HISTORY Diagnosis Date Acute diastolic (congestive) heart failure ([facility]) Bronchitis Chronic kidney failure, stage 4 (severe) ([facility]) 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 ([facility]) 12/16/2018 Depression Detached retina DM type 2, goal HbA1c < 7% ([facility]) Erectile dysfunction, unspecified erectile dysfunction type ESRD (end stage renal disease) ([facility]) GERD (gastroesophageal reflux disease) Hyperlipidemia Kidney replaced by transplant ([facility]) Kidney stones LUANNE (obstructive sleep apnea) PNA (pneumonia) Proliferative retinopathy 02/10/2019 PTE (post-transplant erythrocytosis) Snoring Unspecified essential hypertension Vitamin D deficiency Vitamin D deficiency PAST SURGICAL HISTORY Procedure Laterality Date AMPUTATION TOE,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 08/08/2018 Done at [facility] by Satish Phan MD CHOLECYSTECTOMY 1998 Cholecystectomy COLONOSCOPY 12/04/2018 COLONOSCOPY SCREENING 04/01/2024 CYSTO W/COMPLEX REMOVAL STONE & STENT 1999 EGD 12/04/2018 EGD W/O [facility] SPEC VARICIES INJ 04/01/2024 PAST SURGICAL HISTORY OF Left 2012 & 2014 removal eye fluid with instillation oil Family History Problem Relation Age of Onset Colon Cancer Father 53 Diabetes Brother 52 Diabetes Sister Diabetes Mother 78 Heart Attack Mother Cancer Brother 49 lung Diabetes Son SOCIAL HISTORY[1] Current Outpatient Medications on File Prior to Visit Medication Sig insulin 50/50 lispro protamine-lispro units/mL (HUMALOG MIX 50-50 KWIKPEN) 100 unit/mL (50-50) pen Inject 15 Units subcutaneously daily with breakfast AND 15 Units daily with lunch AND 15 Units daily with dinner. tamsulosin (FLOMAX) 0.4 mg Take 1 capsule by mouth once daily. trospium (SANCTURA) 20 mg tablet Take 1 tablet by mouth two times a day before meals. methocarbamol (ROBAXIN) 500 mg tablet Take 1 tablet by mouth three times a day. lidocaine (SALONPAS) 4 % patch Apply 2 patches as directed once daily for 10 days. on for 12 hours off for 12 hours. acetaminophen (TYLENOL) 325 mg tablet Take 2 tablets by mouth every 6 hours as needed for pain for up to 10 days. gabapentin (NEURONTIN) 100 mg capsule Take 1 capsule by mouth daily at bedtime for 180 days. buPROPion XL (WELLBUTRIN XL) 150 mg 24 hr tablet Take 1 tablet by mouth once daily. aspirin 81 mg chewable tablet chew and swallow 1 tablet by mouth once daily. mycophenolate sodium DR (MYFORTIC) 180 mg EC tablet TAKE TWO TABLETS BY MOUTH 2 TIMES A DAY escitalopram oxalate (LEXAPRO) 10 mg tablet Take 1 tablet by mouth once daily. tacrolimus IR (PROGRAF) 1 mg capsule Take 1 capsule by mouth two times a day. Take one capsule at 6am and one capsule at 6pm Patient should start on January 30, 2025. carvedilol (COREG) 12.5 mg tablet Take 1 tablet by mouth two times a day. Cholestyramine, Bulk, powd Take one(1) scoop dissolved in two(2) to six(6) ounces(oz) of fluid by mouth daily. sulfamethoxazole-trimethoprim (BACTRIM) 400-80 mg per tablet Take 1 tablet by mouth every Saturday, Saturday, and Saturday. pantoprazole DR (PROTONIX) 20 mg tablet Take 1 tablet by mouth once daily. predniSONE (DELTASONE) 5 mg tablet Take 1 tablet by mouth once daily. loperamide (IMODIUM) 2 mg cap(s) Take 1 capsule by mouth four times a day as needed. pseudoephedrine (SUDAFED) 30 mg tablet Take Four 4 (30 mg) Tablets for an erection lasting more than 2 hours. If not improved in 1 hour MUST go to ER ergocalciferol 50,000 unit capsule (VITAMIN D2, DRISDOL) Take 1 capsule by mouth one time a week. glucagon 3 mg/actuation nasal spray (BAQSIMI) Use 1 [place] in the nose as needed for low blood sugar. May repeat after 15 minutes using a new device if there is no response. fluticasone (FLONASE) 50 mcg/actuation nasal spray Use 2 Sprays in each nostril once daily. No current facility-administered medications on file prior to visit. ALLERGIES No Known Allergies Urinalysis: n/a Stone composition: Calculi Composition 60% Calcium Phosphate 30% Calcium Oxalate Monohydrate 10% Minor Components Images: US: 04/18/2025 RESULT: TRANSPLANT KIDNEY: Location: right lower quadrant. Length: 14.5 cm Parenchyma: Normal echogenicity. Normal parenchymal thickness. Collecting system: 1.2 cm renal pelvis stone, unchanged. Percutaneous nephrostomy tube. Physiologic distention of ureter. No hydronephrosis. Peritransplant soft tissues: Normal with no fluid collection. TRANSPLANT VASCULATURE: [place] arterial waveforms: Normal spectral wave forms [place] resistive indices: 0.72-0.73 Transplant renal artery: patent Spectral wave form: normal Peak systolic velocity: 157 cm/sec No significant velocity gradient present. Transplant renal vein: Patent Iliac artery and vein: Patent BLADDER: Prevoid bladder volume of 995. Post void bladder volume of [address]: 04/24/2025 Kidneys: -[place] kidneys: Mildly atrophic. No calculus, hydronephrosis or finding to suggest a cyst or mass in the unenhanced kidney. -Right lower quadrant renal transplant. Nephroureteral stent present. No hydronephrosis. Mild stranding within the renal hilum. Punctate nonobstructing calculus in the lower pole (3:114). METABOLIC LABS: Lab Results Component Value Date VITD25 16.7 (L) 01/01/2025 VITD25 22.6 (L) 01/10/2024 VITD25 23.8 (L) 11/26/2023 PTH 54 01/10/2024 PTH 40 11/26/2023 PTH 58 09/07/2023 CA 9.2 05/02/2025 CA 9.0 05/01/2025 CA 8.9 04/30/2025 CA 8.8 04/30/2025 MG 1.8 01/27/2025 MG 1.9 01/10/2024 MG 2.1 11/26/2023 [1] Social History Tobacco Use Smoking status: Never Smokeless tobacco: Former Types: Snuff Tobacco comments: snuff x 33 years Quit in 2020 Vaping Use Vaping status: Never Used Substance Use Topics Alcohol use: Not Currently Drug use: Not Currently Types: Marijuana documented in this encounter [facility] 05-13-2025 Telephone encounter Note Transitional Care Management (TCM) [facility] Provider Action / FYI: NA SUMMARY: Outreach type: INITIAL OUTREACH Discharge Network Status: In-Network Discharge Source of Patient: [facility] TCM Discharge Report Patient discharged from [facility] on 05/02/25. Admitted for Pyelonephritis. Contact made with patient: No - next outreach attempt will be on next business day. Jon Jacobsen May 13, 2025 2:13 PM [facility] 05-13-2025 Miscellaneous Notes Transitional Care Management (TCM) [facility] Provider Action / FYI: NA SUMMARY: Outreach type: INITIAL OUTREACH Discharge Network Status: In-Network Discharge Source of Patient: [facility] TCM Discharge Report Patient discharged from [facility] on 05/02/25. Admitted for Pyelonephritis. Contact made with patient: No - next outreach attempt will be on next business day. Jon Jacobsen May 13, 2025 2:13 PM documented in this encounter [facility] 05-04-2025 Telephone encounter Note Transitional Care Management (TCM) [facility] Provider Action / FYI: NA SUMMARY: Outreach type: INITIAL OUTREACH Discharge Network Status: In-Network Discharge Source of Patient: [facility] TCM Discharge Report Patient discharged from [facility] on 05/02/25. Admitted for Pyelonephritis. Contact made with patient: No - next outreach attempt will be on next business day. Jon Jacobsen May 04, 2025 1:11 PM [facility] 05-04-2025 Miscellaneous Notes Transitional Care Management (TCM) [facility] Provider Action / FYI: NA SUMMARY: Outreach type: INITIAL OUTREACH Discharge Network Status: In-Network Discharge Source of Patient: [facility] TCM Discharge Report Patient discharged from [facility] on 05/02/25. Admitted for Pyelonephritis. Contact made with patient: No - next outreach attempt will be on next . Jon Jacobsen May 04, 2025 1:11 PM documented in this encounter [facility] 04-21-2025 Telephone encounter Note Patient returned call to office to discuss surgical consult. Offered May [address] Wesley, however, patient is unable to go to . He stays in [place] and and [facility] would be tough to get to for a consult. He is intersted in [place] or [facility]. Advised that we do have a surgeon at [facility]. Will consult with him about surgical consult openings. Kindra Martinez RN April 21, 2025 3:44 PM [facility] 04-21-2025 Miscellaneous Notes Patient returned call to office to discuss surgical consult. Offered May [address] Wesley, however, patient is unable to go to . He stays in [facility] and [facility] would be tough to get to for a consult. He is intersted in [place] or [facility]. Advised that we do have a surgeon at [facility]. Will consult with him about surgical consult openings. Kindra Martinez RN April 21, 2025 3:44 PM Called patient to discuss consult with Dr. Wesley to discuss surgery. At this time, no availability while patient is admitted. Will need outpatient follow up. No answer, left VM with phone number to return call. Kindra Martinez RN April 21, 2025 1:53 PM ----- Message ----- From: Rosalina Duron MD Sent: 04/19/2025 10:05 PM EDT To: George Saeed MD; Halina Gates MD; An# Subject: Transplant ureteral stone inpatient manageme# William, This is Rosalina, one of the PGY2s. I wanted to touch base about this patient currently admitted at [facility] with UTI. - Hx of kidney transplant in 2020 c/b recurrent transplant UTIs - Found to have 1 cm transplant ureteral stone s/p PCNT placement on 01/27, last exchange on 02/25 - Now admitted with Acinetobacter UTI, on Unasyn Pt is homeless (lives on [address] alone) and often misses medications (including immunosuppressives) and appointments. Dr. Link wondered if he may be able to have stone treated while he is admitted? I spoke with Dr. Wesley, and wanted to reach out to see if there were any cancellations/upcoming availabilities to potentially treat his stone while inpatient? Thanks so much! Rosalina documented in this encounter [facility] 04-21-2025 Telephone encounter Note Called patient to discuss consult with Dr. Wesley to discuss surgery. At this time, no availability while patient is admitted. Will need outpatient follow up. No answer, left VM with phone number to return call. Kindra Martinez RN April 21, 2025 1:53 PM ----- Message ----- From: Rosalina Duron MD Sent: 04/19/2025 10:05 PM EDT To: George Saeed MD; Halina Gates MD; An# Subject: Transplant ureteral stone inpatient manageme# William, This is Rosalina, one of the PGY2s. I wanted to touch base about this patient currently admitted at [facility] with UTI. - Hx of kidney transplant in 2020 c/b recurrent transplant UTIs - Found to have 1 cm transplant ureteral stone s/p PCNT placement on 01/27, last exchange on 02/25 - Now admitted with Acinetobacter UTI, on Unasyn Pt is homeless (lives [place] [address] alone) and often misses medications (including immunosuppressives) and appointments. Dr. Link wondered if he may be able to have stone treated while he is admitted? I spoke with Dr. Wesley, and wanted to reach out to see if there were any cancellations/upcoming availabilities to potentially treat his stone while inpatient? Thanks so much! Rosalina [facility] 04-19-2025 Note [facility] Medical Records Department [address] [place] [address] Discharge Summary 04/19/25 1703 MR#: [id number] Acct: [id number] Name: ITALO BURGOS Rep #: [id number] : 1970 54 From: Shruti Jara MD PCP: Dr. Zaida Gaston MD Status:DIS IN Location: [facility] [id number] Providers Date of Admission: 04/15/25 Date of Discharge: 04/18/25 Primary Care Physician: Dr. Zaida Gaston MD Consultations 04/15/25 14:04 Consult: Infectious Disease Routine Consulting Provider: Satish Nava Reason for Consult: staph epidermidis bacteremia in setting of immunosuppression EMERGENT Consult: No MD Notified: Yes Date Notified: 04/15/25 Time Notified: 14:51 Method of Notification: Text Reason For Visit: ACUTE PYELONEPHRITIS,KIDNEY STONE W/HYDRONEPHROSIS Diagnosis Discharge Diagnosis (1) Hydronephrosis with urinary obstruction due to ureteral calculus: Status: Acute Code(s): N13.2 - Hydronephrosis with renal and ureteral calculous obstruction Plan #Sepsis due to infected right kidney stone with possible pyelonephritis * Patient continues to improve and feel better. * Urinalysis did not show evidence of UTI and CT of the abdomen and pelvis showed a right persistent mid ureteral 9 mm stone causing hydronephrosis with superimposed skin infection possible and s/p right hemipelvic renal transplant percutaneous nephrostomy tube in good position * On IV cefepime. ID on board. * Initial blood culture 1 out of 2 bottles growing MRSA on but now showing Staph aureus and coagulase-negative staph. In light of Patient's immunosuppression ID recommends to restart vancomycin * Transfer pending to [facility] Main campus. * TTE ordered as well as repeat blood cultures. * Urology consult not placed as urology has stated that patient should be transferred to [facility]. He has been accepted at [facility] pending bed availability. * Hydrate gently with IV fluids. * Urine cultures growing Acinetobacter baumannii and as stated blood cultures coagulase-negative staph and Staph aureus in 1 out of 2 samples. * #ESRD * Due to patient's history of kidney transplant. Creatinine was 1.62 on admission yesterday. Creatinine is 1.08 today. * On Bactrim and mycophenolate and also on p.o. prednisone. #Type 2 diabetes mellitus: Hold home dose of insulin. On insulin sliding scale. Checks ACHS. #Hypertension: On carvedilol #History of depression: On fluoxetine and escitalopram as well as bupropion DVT prophylaxis: Lovenox CODE STATUS: DNR CCA no intubation Disposition: Transferred to [facility] pending bed availability. Medications at Discharge Home Medications prednisone 5 mg tablet 5 mg PO DAILY steroid 09/18/21 fluoxetine 10 mg capsule 10 mg PO DAILY 03/24/24 insulin lispro protamine-lispro 100 unit/mL (50-50) subcutaneous pen (Humalog Mix 50-50 KwikPen) See Rx Instructions subcut .tid with meals #42 mL 03/30/24 mycophenolate sodium 180 mg tablet,delayed release 360 mg PO BID kidneys 01/26/25 sulfamethoxazole 400 mg-trimethoprim 80 mg tablet 1 tab PO MOWEFR 01/26/25 carvedilol 12.5 mg tablet 12.5 mg PO BID 03/10/25 escitalopram oxalate 10 mg tablet 10 mg PO DAILY 03/10/25 aspirin 81 mg chewable tablet 1 tab PO DAILY 04/14/25 bupropion HCl 150 mg 24 hr tablet, extended release 150 mg PO DAILY 04/14/25 gabapentin 100 mg capsule 100 mg PO QHS 04/14/25 Hospital Course Operations None Procedures None Summary of Care Provided Minutes Spent on Discharge: 45 Hospital Course: ITALO BURGOS, is a 54 M with a PMH as outlined who presented to the ED on 04/14/2025 with complaint of fever and chills and elevated blood sugars greater than 200 since the morning he came into the ED. He also generally felt unwell. Patient has a history of diabetic nephropathy s/p right kidney transplant and follows up with [facility]. He said he also had a history of kidney stones and had been scheduled to follow-up at [facility] where he usually goes for the right kidney stones to be taken out. He said he had had a nephrostomy tube put in about 4 weeks ago to relieve obstruction from the kidney stones. His above symptoms started. He denied any right flank pain and denied any pus in his urine. However because he felt very weak and lethargic he came into the ED. On arrival in the ED he was found to be tachycardic and tachypneic with heart rate of 113 and respiratory rate of 26. His temperature was 99.6 Fahrenheit. CBC done showed WBC of 12.6 and hemoglobin of 13.3 with platelets of 276. Sodium was 130 with potassium of 4.3 and creatinine of 1.62. Bicarb was 22.5. Lactic acid was 1.6. Urinalysis showed cloudy urine with positive nitrites and more than 500 leukocyte esterase and more than 100 WBC. Urine bacteria was 1+. CT abdomen pelvis showed s/p right hemipelvic renal transplant with percutaneous nephrosto (more content not included)... [facility] 04-18-2025 Consult note Note Date/Time April 17, 2025 11:27pm [facility] Medical Records Department [address] [place] [address] Pharmacokinetic/Renal -Consult 04/17/252325 MR#: [id number] Acct: [id number] Name: ITALO BURGOS Rep #:[id number] : 1970 54 From: Aj Fields od PCP: Dr. Zaida Gaston MD Status:ADM I N Y Location: [place] [address] Consult Antibiotic Management Pharmacy has been consulted to manage selected antibiotic: Vancomycin Type of Intervention Type of Consult: Follow-up Labs Labs: Sodium 137 mmol/L (133-145) 04/17/25 05:44 Potassium 3.8 mmol/L (3.3-5.1) 04/17/25 05:44 Chloride 107 mmol/L (98-108) 04/17/25 05:44 Carbon Dioxide 19.1 mmol/L (21.0-32.0) L 04/17/25 05:44 Anion Gap 11 (5-15) 04/17/25 05:44 BUN 15 mg/dL (4-19) 04/17/25 05:44 Creatinine 0.98 mg/dL (0.70-1.20) 04/17/25 05:44 Est GFR (MDRD) Non-Af 91 (>60) 04/17/25 05:44 BUN/Creatinine Ratio 15.2 RATIO (10-20) 04/17/25 05:44 Glucose 219 mg/dL (70-99) H 04/17/25 05:44 Vancomycin Trough 18.5 ug/mL (5.0-15.0) H 04/17/25 22:42 Microbiology Microbiology: Microbiology 04/14/25 19:24 Urine, Clean Catch Urine Culture - Preliminary Acinetobacter baumannii Staphylococcus aureus 04/14/25 17:53 Blood Culture (Wb) - Anticubital Left Bacteria Detection (PCR) - Final Staphylococcus epidermidis 04/14/25 17:53 Blood Culture (Wb) - Anticubital Left Blood Culture - Final Meth. resistant Staph. aureus Coag Negative Staph Coag Negative Staph#2 04/14/25 18:22 Blood Culture (Wb) - Anticubital Left Blood Culture - Preliminary No growth in 48 hours. Goal Trough Goal Trough: 15-20 mcg/mL Pharmacy Plan for Drug Dosing Pharmacy Plan for Drug Dosing: Pharmacy Service will continue to monitor and adjust dosing as required. TROUGH 18.5 @ 11.5 HOURS. NO CHANGES, FOLLOW UP TROUGH IN 2 DAYS Follow-Up Labs Follow-Up Labs: Trough: Vancomycin Date/Time Labs Ordered Labs to be done on [date and time ordered]: 04/19 @ 2230 04/17/257 <Electronically signed by Aj matthews> Date _ Aj Costello Cosigner Signature (if applicable): Date CC: ~ Signed [facility] Work Phone: 1(753) 841-266008-09-2025 Progress note Author Shruti [facility] Note Date/Time April 17, 2025 4:2 3pm [facility] Medical Records Department [address] [place] [address] Progress Note 04/17/25 1134 MR#: [id number] Acct: [id number] Name: ITALO BURGOS Rep #:[id number] : 1970 54 From: Shruti Jara MD PCP: Dr. Zaida Gaston MD Status:ADM I N Location: [place] [address] Subjective Subjective Patient seen and examined with his nurse by his bedside. He had no complaints. HE had an uneventful night. Review of systems is otherwise negative. Objective Data Objective Data Vital Signs: Vital Signs Temp Pulse Resp BP Pulse Ox O2 Del Method 98.3 F 76 16 133/76 H 97 Room Air 04/17/25 08:34 04/17/25 08:34 04/17/25 08:34 04/17/25 08:34 04/17/25 08:34 04/17/25 09:59 Oxygen Delivery Method Room Air Weight: 165 lb 11.2 oz Body Mass Index (BMI) 25.2 Intake & Output: Intake and Output for Last 24 Hours 04/15/25 04/16/25 04/17/25 23:59 23:59 23:59 Intake Total 4235 / 4235 5382.5 / 5382.5 3015 / 3015 Output Total 650 / 950 2250 / 2250 3075 / 3075 Balance 3585 / 3285 3132.5 / 3132.5 -60 / -60 Lab / Micro Data 04/17/25 05:44 04/17/25 05:44 Labs: Laboratory Results - last 24 hr 04/16/25 11:13: POC Glucose 211 H 04/16/25 16:35: POC Glucose 309 H 04/16/25 21:54: POC Glucose 268 H 04/17/25 05:44: WBC 4.8, RBC 3.54 L, Hgb 10.3 L, Hct 31.3 L, MCV 88.4, MCH 29.1,MCHC 32.9, RDW Std Deviation 39.8, RDW Coeff of Tomy 12.2, Plt Count 201, MPV 10.1, Immature Gran % (Auto) 0.400, Neut % (Auto) 69.5, Lymph % (Auto) 20.3, Gove % (Auto) 7.9, Eos % (Auto) 1.5, Baso % (Auto) 0.4, Absolute Neuts (auto) 3.3, Absolute Lymphs (auto) 0.97, Nucleated RBC % 0, Sodium 137, Potassium 3.8, Chloride 107, Carbon Dioxide 19.1 L, Anion Gap 11, BUN 15, Creatinine 0.98, Estim Creat Clear Calc 81.43, Est GFR (MDRD) Non-Af 91, BUN/Creatinine Ratio 15.2, Glucose 219 H, Calcium 8.8 04/17/25 06:36: POC Glucose 195 H Micro: Microbiology 04/14/25 19:24 Urine, Clean Catch Urine Culture - Preliminary Acinetobacter baumannii Staphylococcus aureus 04/14/25 17:53 Blood Culture (Wb) - Anticubital Left Bacteria Detection (PCR) - Final Staphylococcus epidermidis 04/14/25 17:53 Blood Culture (Wb) - Anticubital Left Blood Culture - Final Meth. resistant Staph. aureus Coag Negative Staph Coag Negative Staph#2 04/14/25 18:22 Blood Culture (Wb) - Anticubital Left Blood Culture - Preliminary No growth in 48 hours. Radiography Diagnostic Testing: Radiology Impression Echocardiogram 04/16/25 10:24 Interpretation Summary The estimated ejection fraction is 65-70 %. Stage 1 diastolic dysfunction. Moderate concentric left ventricular hypertrophy. Mild focal aortic valve thickening. Ordering Physician: Satish Nava Referring Physician: Zaida Gaston Performed By: Maranda Jimenez, BO, RVT Social Homelessness:: Sheltered Physical Exam Const alert and oriented x3 Constitutional Narrative: Still weak but continues to look much better today. General Appearance: cooperative HEENT normocephalic, head/scalp atraumatic and moist oral mucous membranes Eyes PERRL, EOMs intact bilaterally and conjunctivae normal Neck supple Resp normal respiratory effort, normal air movement and clear to auscultation bilaterally Cardio regular rate, regular rhythm, S1 normal heart sound, S2 normal heart sound and no murmurs GI normal to inspection, nondistended, normoactive bowel sounds, soft to palpation and non-tender GI Narrative: nephrostomy tube in situ Extremity normal to inspection and full ROM General Extremity: no tenderness to palpation of joints or extremities Skin General Skin Exam: no breakdown Neuro oriented x3, CN's II-XII intact bilaterally and moves all extremities Motor Exam: general weakness Psych thought process normal Psych Narrative: flat affect Mood & Affect: flat affect Assessment & Plan Assessment/Plan (1) Hydronephrosis with urinary obstruction due to ureteral calculus: PLAN: Plan #Sepsis due to infected right kidney stone with possible pyelonephritis * Patient continues to improve and feel better. * Urinalysis did not show evidence of UTI and CT of the abdomen and pelvis showed a right persistent mid ureteral 9 mm stone causing hydronephrosis with superimposed skin infection possible and s/p right hemipelvic renal transplant percutaneous nephrostomy tube in good position * On IV cefepime. ID on board. * Initial blood culture 1 out of 2 bottles growing MRSA on but now showing Staph aureus and coagulase-negative staph. In light of Patient's immunosuppression ID recommends to restart vancomycin * Transfer pending to [facility] Main campus. * TTE ordered as well as repeat blood cultures. * Urology consult not placed as urology has stated that patient should be transferred to [facility]. He has been accepted at [facility] pending bed availability. * Hydrate gently with IV fluids. * Urine cultures growing Acinetobacter baumannii and as stated blood cultures coagulase-negative staph and Staph aureus in 1 out of 2 samples. * #ESRD * Due to patient's history of kidney transplant. Creatinine was 1.62 on admission yesterday. Creatinine is 1.08 today. * On Bactrim and mycophenolate and also on p.o. prednisone. #Type 2 diabetes mellitus: Hold home dose of insulin. On insulin sliding scale. Checks ACHS. #Hypertension: On carvedilol #History of depression: On fluoxetine and escitalopram as well as bupropion DVT prophylaxis: Lovenox CODE STATUS: DNR CCA no intubation Disposition: Transferred to [facility] pending bed availability. 04/17/25 1623 <Electronically signed by Shruti Jara MD> Shruti Jara MD Cosigner Signature (if applicable): CC: ~ Signed [facility] Work Phone: 1(800) 248-562108-08-2025 Progress note Author [facility] Note Date/Time April 16, 2025 6:2 4pm [facility] Medical Records Department [address] [place] [id number] Progress Note 04/16/25 1426 MR#: [id number] Acct: [id number] Name: ITALO BURGOS Rep #:[id number] : 1970 54 From: Shruti Jara MD PCP: Dr. Zaida Gaston MD Status:ADM I N Location: [place] [address] Subjective Subjective Patient seen and examined. He is feeling much better today. I saw him with hisnurse by his bedside. He had no active complaints. Review of systems otherwisenegative. He is still awaiting transfer to [facility] pending bed availability. Objective Data Objective Data Vital Signs: Vital Signs Temp Pulse Resp BP Pulse Ox O2 Del Method 97.7 F L 84 18 131/68 H 93 Room Air 04/16/25 09:05 04/16/25 09:05 04/16/25 09:05 04/16/25 09:05 04/16/25 09:05 04/16/25 13:47 Oxygen Delivery Method Room Air Weight: 165 lb 11.2 oz Body Mass Index (BMI) 25.2 Intake & Output: Intake and Output for Last 24 Hours 04/14/25 04/15/25 04/16/25 23:59 23:59 23:59 Intake Total 2200 / 2200 4235 / 4235 3132.5 / 3132.5 Output Total 650 / 950 750 / 750 Balance 2200 / 2200 3585 / 3285 2382.5 / 2382.5 Lab / Micro Data 04/16/25 05:44 04/16/25 05:44 Labs: Laboratory Results - last 24 hr 04/15/25 15:17: Lactic Acid 1.4 04/15/25 16:21: POC Glucose 331 H 04/15/25 18:11: WBC 11.6 H, RBC 3.88 L, Hgb 11.3 L, Hct 34.4 L, MCV 88.7, MCH 29.1, MCHC 32.8, RDW Std Deviation 40.5, RDW Coeff of Tomy 12.5, Plt Count 224, MPV 9.1, Immature Gran % (Auto) 0.300, Neut % (Auto) 83.9 H, Lymph % (Auto) 7.9 L, Gove % (Auto) 7.4, Eos % (Auto) 0.2, Baso % (Auto) 0.3, Absolute Neuts (auto)9.8 H, Absolute Lymphs (auto) 0.92, Nucleated RBC % 0, Sodium 136, Potassium 4.1, Chloride 104, Carbon Dioxide 21.9, Anion Gap 9, BUN 21 H, Creatinine 1.10, Estim Creat Clear Calc 72.55, Est GFR (MDRD) Non-Af 79, BUN/Creatinine Ratio 19.3, Glucose 267 H, Calcium 9.1 04/15/25 22:12: POC Glucose 220 H 04/16/25 05:44: WBC 6.8, RBC 3.38 L, Hgb 10.0 L, Hct 30.4 L, MCV 89.9, MCH 29.6,MCHC 32.9, RDW Std Deviation 40.1, RDW Coeff of Tomy 12.3, Plt Count 197, MPV 9.4, Immature Gran % (Auto) 0.100, Neut % (Auto) 70.5 H, Lymph % (Auto) 19.2, Gove % (Auto) 9.5, Eos % (Auto) 0.4, Baso % (Auto) 0.3, Absolute Neuts (auto) 4.8, Absolute Lymphs (auto) 1.31, Nucleated RBC % 0, Sodium 135, Potassium 3.5, Chloride 106, Carbon Dioxide 19.9 L, Anion Gap 10, BUN 16, Creatinine 1.08, Estim Creat Clear Calc 73.89, Est GFR (MDRD) Non-Af 81, BUN/Creatinine Ratio 15.0, Glucose 153 H, Calcium 9.0 04/16/25 06:49: POC Glucose 148 H 04/16/25 11:13: POC Glucose 211 H Micro: Microbiology 04/14/25 19:24 Urine, Clean Catch Urine Culture - Final Acinetobacter baumannii 04/14/25 17:53 Blood Culture (Wb) - Anticubital Left Bacteria Detection (PCR) - Final Staphylococcus epidermidis 04/14/25 17:53 Blood Culture (Wb) - Anticubital Left Blood Culture - Preliminary Staphylococcus aureus Coag Negative Staph Social Homelessness:: Sheltered Physical Exam Const alert Constitutional Narrative: Still weak but looks much better today. General Appearance: cooperative HEENT normocephalic, head/scalp atraumatic and moist oral mucous membranes Eyes PERRL, EOMs intact bilaterally and conjunctivae normal Neck supple Resp normal respiratory effort, normal air movement and clear to auscultation bilaterally Cardio regular rate, regular rhythm, S1 normal heart sound, S2 normal heart sound and no murmurs GI normal to inspection, nondistended, normoactive bowel sounds, soft to palpation and non-tender GI Narrative: nephrostomy tube in situ Extremity normal to inspection and full ROM Neuro oriented x3, CN's II-XII intact bilaterally and moves all extremities Motor Exam: general weakness Psych Psych Narrative: flat affect Mood & Affect: flat affect Assessment & Plan Assessment/Plan (1) Hydronephrosis with urinary obstruction due to ureteral calculus: PLAN: Plan #Sepsis due to infected right kidney stone with possible pyelonephritis * Patient feels much better today. * Urinalysis did not show evidence of UTI and CT of the abdomen and pelvis showed a right persistent mid ureteral 9 mm stone causing hydronephrosis with superimposed skin infection possible and s/p right hemipelvic renal transplant percutaneous nephrostomy tube in good position * On IV cefepime. ID on board. * Initial blood culture 1 out of 2 bottles growing MRSA on but now showing Staph aureus and coagulase-negative staph. In light of Patient's immunosuppression ID recommends to restart vancomycin * Transfer pending to [facility]. * TTE ordered as well as repeat blood cultures. * Urology consult not placed as urology has stated that patient should be transferred to [facility]. He has been accepted at [facility] pending bed availability. * Hydrate gently with IV fluids. * Urine cultures growing Acinetobacter baumannii and as stated blood cultures coagulase-negative staph and Staph aureus in 1 out of 2 samples. * #ESRD * Due to patient's history of kidney transplant. Creatinine was 1.62 on admission yesterday. Creatinine is 1.08 today. * On Bactrim and mycophenolate and also on p.o. prednisone. #Type 2 diabetes mellitus: Hold home dose of insulin. On insulin sliding scale. Checks ACHS. #Hypertension: On carvedilol #History of depression: On fluoxetine and escitalopram as well as bupropion DVT prophylaxis: Lovenox CODE STATUS: DNR CCA no intubation Disposition: Transferred to [facility] pending bed availability. Charges/Coding Visit Charges Inpatient E&M: 76947 Subs Hosp L2 04/16/25 1824 <Electronically signed by Shruti Jara MD> Shruti Jara MD Cosigner Signature (if applicable): CC: ~ Signed [facility] Work Phone: 1(865) 613-715108-08-2025 Consult note Author Satish Nava [facility] Note Date/Time April 16, 2025 10: 26am [facility] Medical Records Department [address] [place] [address] Consultation - Infectious Dx 04/16/25 1019 MR#: [id number] Acct: [id number] Name: ITALO BURGOS Rep #:[id number] : 1970 54 From: Satish cochran MD PCP: Dr. Zaida Gaston MD Status:ADM I N Location: [place] [address] Assessment & Plan Assessment/Plan (1) Kidney transplant recipient: (2) Acute pyelonephritis due to bacteria: (3) Acute on chronic renal insufficiency: (4) Staphylococcus aureus bacteremia: PLAN: Ucx 04/04/25 with MRSA. Ucx now with GNR. 1 of 2 bcx here with MRSE on pcr, but now growth of staph aureus and CoNS. Wbc improved, no fever. Is immunosuppressed. Transfer planned. Will order repeat bcx and TTE. Cont cefepime, will restart vanc. Will follow, thank you HPI Consult Data Date of Consult: 04/16/25 HPI Narrative Reason for Consultation: pyelonephritis HPI Narrative: ITALO BURGOS, is a 54 M with h/o kidney transplant 2020, T1DM, recurrent kidneystones, and currently homeless. He presented to ED 04/14/25 with one day h/o fever, chills, moderate R flank pain. Has had R nephrostomy tube in for about amonth. CT showed stone with hydro on R side. Admitted on cefepime, given dose of vanc. Reports compliance with meds and bactrim for proph. Feeling a little better today. Full ROS performed and neg except as noted above. [facility] Medical History MRSA (methicillin resistant staph aureus) culture positive Anxiety Depression Diabetes Former smoker CPAP (continuous [...] catheterization (LHC) (~06/26/11) Atherosclerotic heart disease of [place] coronary artery without angina pectoris Essential hypertension [...] Medications ?Medication ?Instructions ?Recorded ?Last Taken ?Type prednisone 5 mg tablet 5 mg PO DAILY steroid 03/10/25 History fluoxetine 10 mg capsule 10 mg PO DAILY 03/24/2410/03 History insulin lispro protamine-lispro See Rx Instructions paul bcut .tid 03/30/24 03/10/25 Rx 100 unit/mL (50-50) subcutaneous with meals #42 mL pen (Humalog Mix 50-50 KwikPen) mycophenolate sodium 180 mg 360 mg PO BID kidneys 01/0803/10/25 History tablet,delayed release sulfamethoxazole 400 1 tab PO MOWEFR 01/26/2511/03 History mg-trimethoprim 80 mg tablet carvedilol 12.5 mg tablet 12.5 mg PO BID 03/10/2511/03 History escitalopram oxalate 10 mg tablet 10 mg PO DAILY 03/1003/09/25 History aspirin 81 mg chewable tablet 1 tab PO DAILY 04/14/25 Unknown History bupropion HCl 150 mg 24 hr tablet, 150 mg PO DAILY 03/03 Unknown History extended release gabapentin 100 mg capsule 100 mg PO QHS 04/14/25 Unkno wn History Allergy/AdvReac Type Severity Reaction Status Date / Time No Known Allergies Allergy Verified 04/04/25 11:08 Family History Mother Heart disease Hypertension Father [...] to auscultation bilaterally Cardio regular rate, regular rhythm and no murmurs GI soft to palpation and non-distended GI Narrative: Mild R sided tenderness Extremity General Extremity: no tenderness to palpation of joints or extremities; Negativefor edema Skin no rashes or lesions noted Skin Narrative: nephrostomy tube in place Neuro CN's II-XII intact bilaterally Lab / Micro Data Attestation: I reviewed the patient's lab results. 04/16/25 05:44 04/16/25 05:44 Labs: Laboratory Results - last 24 hr 04/15/25 15:17: Lactic Acid 1.4 04/15/25 16:21: POC Glucose 331 H 04/15/25 18:11: WBC 11.6 H, RBC 3.88 L, Hgb 11.3 L, Hct 34.4 L, MCV 88.7, MCH 29.1, MCHC 32.8, RDW Std Deviation 40.5, RDW Coeff of Tomy 12.5, Plt Count 224, MPV 9.1, Immature Gran % (Auto) 0.300, Neut % (Auto) 83.9 H, Lymph % (Auto) 7.9 L, Gove % (Auto) 7.4, Eos % (Auto) 0.2, Baso % (Auto) 0.3, Absolute Neuts (auto)9.8 H, Absolute Lymphs (auto) 0.92, Nucleated RBC % 0, Sodium 136, Potassium 4.1, Chloride 104, Carbon Dioxide 21.9, Anion Gap 9, BUN 21 H, Creatinine 1.10, Estim Creat Clear Calc 72.55, Est GFR (MDRD) Non-Af 79, BUN/Creatinine Ratio 19.3, Glucose 267 H, Calcium 9.1 04/15/25 22:12: POC Glucose 220 H 04/16/25 05:44: WBC 6.8, RBC 3.38 L, Hgb 10.0 L, Hct 30.4 L, MCV 89.9, MCH 29.6,MCHC 32.9, RDW Std Deviation 40.1, RDW Coeff of Tomy 12.3, Plt Count 197, MPV 9.4, Immature Gran % (Auto) 0.100, Neut % (Auto) 70.5 H, Lymph % (Auto) 19.2, Gove % (Auto) 9.5, Eos % (Auto) 0.4, Baso % (Auto) 0.3, Absolute Neuts (auto) 4.8, Absolute Lymphs (auto) 1.31, Nucleated RBC % 0, Sodium 135, Potassium 3.5, Chloride 106, Carbon Dioxide 19.9 L, Anion Gap 10, BUN 16, Creatinine 1.08, Estim Creat Clear Calc 73.89, Est GFR (MDRD) Non-Af 81, BUN/Creatinine Ratio 15.0, Glucose 153 H, Calcium 9.0 04/16/25 06:49: POC Glucose 148 H Micro: Microbiology 04/14/25 17:53 Blood Culture (Wb) - Anticubital Left Bacteria Detection (PCR) - Final Staphylococcus epidermidis 04/14/25 17:53 Blood Culture (Wb) - Anticubital Left Blood Culture - Preliminary Staphylococcus aureus Coag Negative Staph 04/14/25 19:24 Urine, Clean Catch Urine Culture - Preliminary Gram negative hector 04/16/25 1026 <Electronically signed by Satish Nava MD> Cosigner Signature (if applicable): CC: Dr. Zaida Gaston MD~ Signed [facility] Work Phone: 1(998) 658-735808-07-2025 Consult note Author Santiago Umana [facility] Note Date/Time April 15, 2025 5:5 1pm [facility] Medical Records Department [address] [place] [address] Pharmacokinetic/Renal -Consult 04/15/25 1435 MR#: [id number] Acct: [id number] Name: ITALO BURGOS Rep #:[id number] : 1970 54 From: Santiago Umana PCP: Dr. Zaida Gaston MD Status:ADM I N Y Location: [place] [address] Consult Antibiotic Management Pharmacy has been consulted to manage selected antibiotic: Vancomycin Type of Intervention Type of Consult: New start Suspected Infection Suspected Infection: Sepsis Prior Doses of Antibiotics Prior Doses of Antibiotics Received/Current Regimen: Vancomycin 1250 mg IV x 1 given 04/14/25 @ 2219 Labs Labs: Sodium 130 mmol/L (133-145) L 04/14/25 17:15 Potassium 4.3 mmol/L (3.3-5.1) 04/14/25 17:15 Chloride 92 mmol/L (98-108) L 04/14/25 17:15 Carbon Dioxide 22.5 mmol/L (21.0-32.0) 04/14/25 17:15 Anion Gap 16 (5-15) H 04/14/25 17:15 BUN 26 mg/dL (4-19) H 04/14/25 17:15 Creatinine 1.62 mg/dL (0.70-1.20) H 04/14/25 17:15 Est GFR (MDRD) Non-Af 50 (>60) L 04/14/25 17:15 BUN/Creatinine Ratio 15.9 RATIO (10-20) 04/14/25 17:15 Glucose 429 mg/dL (70-99) H 04/14/25 17:15 Microbiology Microbiology: Microbiology 04/14/25 17:53 Blood Culture (Wb) - Anticubital Left Bacteria Detection (PCR) - Final Staphylococcus epidermidis 04/14/25 17:53 Blood Culture (Wb) - Anticubital Left Blood Culture - Preliminary 04/14/25 19:24 Urine, Clean Catch Urine Culture - Preliminary Gram negative hector Dosing Weight Weight used for dosin kg Estimated Creatinine Clearance Estimated Creatinine Clearance: ~ 49 Goal Trough Goal Trough: 15-20 mcg/mL Pharmacy Plan for Drug Dosing Pharmacy Plan for Drug Dosing: Vancomycin 1250 mg IV x 1 followed by 500 mg Q12H Pharmacy Service will continue to monitor and adjust dosing as required. Follow-Up Labs Follow-Up Labs: Trough: Vancomycin Date/Time Labs Ordered Labs to be done on [date and time ordered]: 04/16/25 @ 1400 04/15/25 1437 <Electronically signed by Santiago cochran> Date _ Santiago Townsendkrystalalysa 04/15/25 175 <Electronically signed by Shruti schaefer MD> Cosigner Signature (if applicable): Date Shruti Jara MD CC: ~ Signed [facility] Work Phone: 1(235) 478-109408-07-2025 History and physical note Author Shruti [facility] Note Date/Time April 15, 2025 5:3 4pm [facility] Medical Records Department [address] [place] [address] H&P Exam - Hospitalist 04/15/25 0944 MR#: [id number] Acct: [id number] Name: ITALO BURGOS Rep #:[id number] : 1970 54 From: Shruti Jara MD PCP: Dr. Zaida Gaston MD Status:ADM I N Location: [place] [address] HPI - General General Date of Admission: 04/15/25 Date of Service: 04/15/25 Chief Complaint: fever, general feeling of unwellness HPI Narrative ITALO BURGOS, is a 54 M with a PMH as outlined who presented to the ED on 04/14/2025 with complaint of fever and chills and elevated blood sugars greater than 200 since the morning he came into the ED. He also generally felt unwell. Patient has a history of diabetic nephropathy s/p right kidney transplant and follows up with [facility]. He said he also had a history of kidney stones and had been scheduled to follow-up at [facility] where he usually goes for the right kidney stones to be taken out. He said he had had a nephrostomy tube put in about 4 weeks ago to relieve obstruction from the kidney stones. His above symptoms started. He denied any right flank pain and denied any pus in his urine. However because he felt very weak and lethargic he came into the ED. On arrival in the ED he was found to betachycardic and tachypneic with heart rate of 113 and respiratory rate of 26. His temperature was 99.6 Fahrenheit. CBC done showed WBC of 12.6 and hemoglobinof 13.3 with platelets of 276. Sodium was 130 with potassium of 4.3 and creatinine of 1.62. Bicarb was 22.5. Lactic acid was 1.6. Urinalysis showed cloudy urine with positive nitrites and more than 500 leukocyte esterase and more than 100 WBC. Urine bacteria was 1+. CT abdomen pelvis showed s/p right hemipelvic renal transplant with percutaneous nephrostomy in good position and persistent mid ureter ureteral 9 mm stone causing hydronephrosis with superimposed kidney infection possible. The ED doctor discussed with the urologist who stated the patient should be transferred to [facility] as he could not do an intervention here in light of him being a kidney transplant patient. Patient was accepted at [facility]. However after staying overnight in the ED and now getting a bed at [facility], decision was made to admit patient to us to [facility] pending transfer. Patient is understanding of the fact that we will only place him on antibiotics here pending transfer as our urologist here is not comfortable with doing any procedure here. Patient is understanding of this and accepting. At the time I reviewed patient in the ED, his vitals were temperature of 97.8 Fahrenheit with pulse rate of 95, respiratory rate of 13 and he was saturating at 100% on room air. He is therefore been admitted to be managed for sepsis due to infected right kidney stone with possible pyelonephritis and UTI. Patient is currently homeless and lives in a alf. [facility] Medical History MRSA (methicillin resistant staph aureus) culture positive Anxiety Depression Diabetes Former smoker CPAP (continuous [...] catheterization (LHC) (~06/26/11) Atherosclerotic heart disease of [place] coronary artery without angina pectoris Essential hypertension [...] Medications ?Medication ?Instructions ?Recorded ?Last Taken ?Type prednisone 5 mg tablet 5 mg PO DAILY steroid 03/10/25 History fluoxetine 10 mg capsule 10 mg PO DAILY 03/24/2410/03 History insulin lispro protamine-lispro See Rx Instructions paul bcut .tid 03/30/24 03/10/25 Rx 100 unit/mL (50-50) subcutaneous with meals #42 mL pen (Humalog Mix 50-50 KwikPen) mycophenolate sodium 180 mg 360 mg PO BID kidneys 01/0803/10/25 History tablet,delayed release sulfamethoxazole 400 1 tab PO MOWEFR 01/26/2511/03 History mg-trimethoprim 80 mg tablet carvedilol 12.5 mg tablet 12.5 mg PO BID 03/10/2511/03 History escitalopram oxalate 10 mg tablet 10 mg PO DAILY 03/1003/09/25 History aspirin 81 mg chewable tablet 1 tab PO DAILY 04/14/25 Unknown History bupropion HCl 150 mg 24 hr tablet, 150 mg PO DAILY 03/03 Unknown History extended release gabapentin 100 mg capsule 100 mg PO QHS 04/14/25 Unkno wn History Allergy/AdvReac Type Severity Reaction Status Date / Time No Known Allergies Allergy Verified 04/04/25 11:08 Family History Mother Heart disease Hypertension Father [...] you participate in: none ROS Constitutional Constitutional: Reports anorexia, chills, fatigue, fever(s), malaise and weakness Eyes Eyes: Denies change in vision ENT HEENT: Denies dysphagia or headache(s) Cardiovascular Cardiovascular: Reports palpitations and rapid heart rate; Denies chest pain, dyspnea on exertion, edema, lightheadedness, orthopnea or paroxysmal nocturnal dyspnea Respiratory/Chest Respiratory/Chest: Denies cough, dyspnea, productive cough, shortness of breath at rest or shortness of breath with exertion Gastrointestinal Gastrointestinal: Denies abdominal pain, constipation, diarrhea, nausea or vomiting Genitourinary Genitourinary: Denies dysuria, nocturia or urinary frequency Neurologic Neurologic: Denies confusion, dizziness, focal weakness, headache(s) or numbness Vital Signs Vital Signs Vital Signs: 04/14/25 17:24 04/14/25 18:03 04/14/25 18:23 Temperature 103.4 F H 102.3 F H Temperature Source Axillary Axillary Pulse Rate 120 H 113 H Respiratory Rate 16 26 H Blood Pressure 124/81 H 116/65 Blood Pressure Mean 95 82 Pulse Ox 92 98 Oxygen Delivery Method Room Air Room Air Room Air 04/14/25 19:00 04/14/25 19:00 04/14/25 20:00 Temperature 99.6 F H 99.6 F H 98.9 F Temperature Source Oral Oral Oral Pulse Rate 98 98 98 Respiratory Rate 18 18 18 Blood Pressure 108/63 108/63 102/64 Blood Pressure Mean 78 78 76 Pulse Ox 99 99 98 Oxygen Delivery Method Room Air Room Air Room Air 04/14/25 20:00 04/14/25 21:00 04/14/25 21:00 Temperature 98.9 F 98.8 F 98.8 F Temperature Source Oral Oral Oral Pulse Rate 98 85 85 Respiratory Rate 18 18 18 Blood Pressure 102/64 109/64 109/64 Blood Pressure Mean 76 79 79 Pulse Ox 99 97 97 Oxygen Delivery Method Room Air Room Air Room Air 04/14/25 22:00 04/14/25 22:00 04/14/25 22:15 Temperature 98.4 F Temperature Source Oral Pulse Rate 83 83 80 Respiratory Rate 18 18 14 Blood Pressure 91/57 L 91/57 L Blood Pressure Mean 68 68 Pulse Ox 97 97 97 Oxygen Delivery Method Room Air 04/14/25 22:18 04/14/25 22:30 04/14/25 22:45 Temperature Temperature Source Pulse Rate 81 81 80 Respiratory Rate 15 14 16 Blood Pressure 91/61 95/62 Blood Pressure Mean 70 73 Pulse Ox 100 100 Oxygen Delivery Method 04/14/25 23:00 04/14/25 23:00 04/14/25 23:15 Temperature 97.8 F Temperature Source Oral Pulse Rate 76 78 88 Respiratory Rate 16 12 13 Blood Pressure 95/72 Blood Pressure Mean 79 Pulse Ox 97 Oxygen Delivery Method Room Air 04/14/25 23:30 04/14/25 23:38 04/14/25 23:45 Temperature Temperature Source Pulse Rate 90 89 89 Respiratory Rate 9 L 20 H 12 Blood Pressure 126/84 H Blood Pressure Mean 95 Pulse Ox 100 Oxygen Delivery Method 04/15/25 00:00 04/15/25 00:00 04/15/25 00:15 Temperature 97.8 F Temperature Source Oral Pulse Rate 92 97 91 Respiratory Rate 18 12 12 Blood Pressure 130/82 H 130/82 H Blood Pressure Mean 98 97 Pulse Ox 100 85 99 Oxygen Delivery Method Room Air 04/15/25 00:30 04/15/25 00:45 04/15/25 01:00 Temperature Temperature Source Pulse Rate 97 88 Respiratory Rate 12 18 Blood Pressure 144/84 H 150/84 H Blood Pressure Mean 101 106 Pulse Ox 100 100 100 Oxygen Delivery Method Room Air 04/15/25 01:00 04/15/25 01:15 04/15/25 01:30 Temperature Temperature Source Pulse Rate Respiratory Rate Blood Pressure 150/84 H 138/100 H Blood Pressure Mean 101 112 Pulse Ox 100 99 100 Oxygen Delivery Method 04/15/25 01:45 04/15/25 01:46 04/15/25 02:00 Temperature 99.2 F H Temperature Source Oral Pulse Rate 105 H Respiratory Rate 18 Blood Pressure 134/78 H 146/76 H Blood Pressure Mean 92 99 Pulse Ox 100 100 100 Oxygen Delivery Method Room Air 04/15/25 02:00 04/15/25 02:00 04/15/25 02:15 Temperature 99.2 F H 99.2 F H Temperature Source Oral Oral Pulse Rate 105 H 103 H Respiratory Rate 18 18 Blood Pressure 146/76 H 146/76 H 144/73 H Blood Pressure Mean 99 97 96 Pulse Ox 100 100 98 Oxygen Delivery Method Room Air Room Air 04/15/25 02:15 04/15/25 02:30 04/15/25 02:30 Temperature 99.2 F H Temperature Source Oral Pulse Rate 105 H Respiratory Rate 18 Blood Pressure 144/73 H 148/76 H 148/74 H Blood Pressure Mean 93 100 94 Pulse Ox 95 Oxygen Delivery Method Room Air 04/15/25 02:45 04/15/25 02:45 04/15/25 03:00 Temperature 99.8 F H 102.7 F H Temperature Source Oral Oral Pulse Rate 110 H 135 H Respiratory Rate 18 18 Blood Pressure 171/91 H 171/91 H 168/94 H Blood Pressure Mean 117 113 118 Pulse Ox 100 100 Oxygen Delivery Method Room Air Room Air 04/15/25 03:00 04/15/25 03:06 04/15/25 03:07 Temperature Temperature Source Pulse Rate 132 H Respiratory Rate Blood Pressure 168/94 H 225/197 H Blood Pressure Mean 116 207 Pulse Ox 100 100 Oxygen Delivery Method 04/15/25 03:15 04/15/25 03:30 04/15/25 03:31 Temperature Temperature Source Pulse Rate 135 H 123 H 122 H Respiratory Rate 16 26 H 20 H Blood Pressure 144/129 H Blood Pressure Mean 135 Pulse Ox 98 Oxygen Delivery Method 04/15/25 03:45 04/15/25 03:50 04/15/25 03:50 Temperature Temperature Source Pulse Rate 117 H 118 H 118 H Respiratory Rate 6 L 18 17 Blood Pressure 146/77 H 146/77 H Blood Pressure Mean 100 94 Pulse Ox 94 93 Oxygen Delivery Method Room Air 04/15/25 04:00 04/15/25 04:00 04/15/25 04:15 Temperature Temperature Source Pulse Rate 120 H 110 H Respiratory Rate 18 0 L Blood Pressure 137/77 H 137/71 H Blood Pressure Mean 97 88 Pulse Ox 98 96 Oxygen Delivery Method Room Air 04/15/25 04:30 04/15/25 04:45 04/15/25 05:00 Temperature 101.1 F H Temperature Source Oral Pulse Rate 121 H 108 H Respiratory Rate 13 18 Blood Pressure 112/63 111/63 Blood Pressure Mean 78 79 Pulse Ox 99 95 Oxygen Delivery Method Room Air 04/15/25 05:00 04/15/25 05:15 04/15/25 05:30 Temperature Temperature Source Pulse Rate 106 H 103 H 99 Respiratory Rate 26 H 26 H 24 H Blood Pressure 111/63 109/64 Blood Pressure Mean 79 78 Pulse Ox 89 90 90 Oxygen Delivery Method 04/15/25 05:45 04/15/25 06:00 04/15/25 06:00 Temperature 98.5 F Temperature Source Oral Pulse Rate 96 93 Respiratory Rate 22 H 18 Blood Pressure 109/61 109/61 Blood Pressure Mean 77 76 Pulse Ox 94 Oxygen Delivery Method Room Air 04/15/25 06:15 04/15/25 06:30 04/15/25 06:45 Temperature Temperature Source Pulse Rate Respiratory Rate Blood Pressure 118/72 Blood Pressure Mean 87 Pulse Ox 98 95 93 Oxygen Delivery Method 04/15/25 07:00 04/15/25 07:00 04/15/25 07:15 Temperature 98.5 F Temperature Source Oral Pulse Rate 81 Respiratory Rate 16 Blood Pressure 130/66 H 130/66 H Blood Pressure Mean 87 84 Pulse Ox 93 95 Oxygen Delivery Method Room Air 04/15/25 07:30 04/15/25 07:45 04/15/25 08:00 Temperature Temperature Source Pulse Rate Respiratory Rate Blood Pressure 108/63 108/65 Blood Pressure Mean 76 77 Pulse Ox 96 95 96 Oxygen Delivery Method 04/15/25 08:15 04/15/25 08:30 04/15/25 08:45 Temperature Temperature Source Pulse Rate 91 Respiratory Rate 16 Blood Pressure 117/71 Blood Pressure Mean 85 Pulse Ox 96 97 96 Oxygen Delivery Method 04/15/25 09:00 04/15/25 09:15 04/15/25 09:30 Temperature Temperature Source Pulse Rate 84 81 80 Respiratory Rate 16 11 L 15 Blood Pressure 120/72 107/68 Blood Pressure Mean 88 81 Pulse Ox 95 96 97 Oxygen Delivery Method Weight Weight: 170 lb 3.15 oz Body Mass Index (BMI) 25.9 Physical Exam Const alert Constitutional Narrative: weak and frail. General Appearance: cooperative HEENT HEENT Narrative: dry oral mucous membranes. Eyes PERRL, EOMs intact bilaterally and conjunctivae normal Neck supple Resp normal respiratory effort and clear to auscultation bilaterally Cardio regular rate, regular rhythm, S1 normal heart sound, S2 normal heart sound and no murmurs GI normal to inspection, nondistended, normoactive bowel sounds, soft to palpation and non-tender GI Narrative: nephrostomy tube in situ Extremity normal to inspection and full ROM Neuro oriented x3, CN's II-XII intact bilaterally and moves all extremities Psych Psych Narrative: flat affect Results Lab / Micro Data 04/14/25 17:15 04/14/25 17:15 Labs: Laboratory Results - last 24 hr 04/14/25 17:15: WBC 12.6 H, RBC 4.56 L, Hgb 13.3, Hct 39.7 L, MCV 87.1, MCH 29.2, MCHC 33.5, RDW Std Deviation 39.6, RDW Coeff of Tomy 12.3, Plt Count 276, MPV 9.4, Immature Gran % (Auto) 0.500, Neut % (Auto) 75.7 H, Lymph % (Auto) 12.2L, Gove % (Auto) 11.3 H, Eos % (Auto) 0.0, Baso % (Auto) 0.3, Absolute Neuts (auto) 9.5 H, Absolute Lymphs (auto) 1.53, Nucleated RBC % 0, PT 15.1 H, INR 1.2, APTT 35.4, Sodium 130 L, Potassium 4.3, Chloride 92 L, Carbon Dioxide 22.5,Anion Gap 16 H, BUN 26 H, Creatinine 1.62 H, Estim Creat Clear Calc 49.26 L, EstGFR (MDRD) Non-Af 50 L, BUN/Creatinine Ratio 15.9, Glucose 429 H, Calcium 10.1, Total Bilirubin 0.82, AST 18, ALT 12, Alkaline Phosphatase 141 H, Total Protein 8.5 H, Albumin 3.9, Globulin 4.7 H, Albumin/Globulin Ratio 0.8 L 04/14/25 17:53: Lactic Acid 1.6 04/14/25 19:24: Urine Color Yellow, Urine Clarity Cloudy, Urine pH 6.0, Ur Specific [place] 1.015, Urine Protein 100 H, Urine Glucose (UA) 1000 H, Urine Ketones Negative, Urine Occult Blood 250 H, Urine Nitrite Positive H, Urine Bilirubin Negative, Urine Urobilinogen 1 H, Ur Leukocyte Esterase 500 H, Urine RBC 5-10 SEEN, Urine WBC >100 SEEN, Ur Squamous Epith Cells 0 SEEN, Urine Bacteria 1+, Coarse Granular Casts 0-5 SEEN, Urine Mucus 0 SEEN 04/14/25 23:05: POC Glucose 224 H 04/15/25 03:59: POC Glucose 241 H Micro: Microbiology 04/14/25 17:53 Blood Culture (Wb) - Anticubital Left Blood Culture - Preliminary Imaging Radiology Impression Chest X-Ray 04/14/25 17:50 IMPRESSION: No Acute Findings. Reading Location: [id number] Abdomen/Pelvis CT 04/14/25 20:49 IMPRESSION: Status post right hemipelvic renal transplant with percutaneous nephrostomy in good position.. Persistent mid ureteral 9 mm stone causing hydronephrosis. Superimposed kidney infection is possible. Possible cystitis. Reading Location: [place] [address] Assessment & Plan Assessment/Plan (1) Hydronephrosis with urinary obstruction due to ureteral calculus: PLAN: Plan #Sepsis due to infected right kidney stone with possible pylenonephritis * Admit to PCU. Patient no longer show/criteria as fever, tachycardia and tachypnea have resolved. However I do think that is reasonable to admit him to the PCU out of precaution in light of his immunocompromised state. * Urinalysis did not show evidence of UTI and CT of the abdomen and pelvis showed a right persistent mid ureteral 9 mm stone causing hydronephrosis with superimposed skin infection possible and s/p right hemipelvic renal transplant percutaneous nephrostomy tube in good position * Started on IV cefepime.Blood cultures growing gram-positive cocci and clusters. The PCR is growing Staph epidermidis with no evidence of MRSA. Discussed with Dr. Nava. I had initially elected to place patient on vancomycin. However after discussion with Dr. Villa, in absence of evidence of MRSA, cefepime should be adequate to cover the Staph epidermidis as this likely MSSA. Per discussion it is worth treating in light of patient's immunosuppression. * Urology consult note placed as urology has stated that patient should be transferred to [facility]. He has been accepted at [facility] pending bed availability. * Hydrate gently with IV fluids. * Infectious disease consulted. * #ESRD * Due to patient's history of kidney transplant. Creatinine was 1.62 on admission yesterday. Repeat CBC and BMP today. Trend creatinine. Baseline creatinine is around 1.2. * On Bactrim and mycophenolate and also on p.o. prednisone. #Type 2 diabetes mellitus: Hold home dose of insulin. On insulin sliding scale. Checks ACHS. #Hypertension: On carvedilol #History of depression: On fluoxetine and escitalopram as well as bupropion DVT prophylaxis: Lovenox CODE STATUS: DNR CCA no intubation * Patient counseled extensively about different types of CODE STATUS including full code, DNR CCA and DNR CCA. * Patient elects to be DNR CCA and states that he does not want CPR or intubation. * I reiterated this with him and he was adamant that he would not want any CPR or intubation if needed or want everything else otherwise done for him. * Total [id number] time 16 minutes. * Disposition: Transferred to [facility] pending bed availability. Charges/Coding Visit Charges Inpatient E&M: 70202 Init Hosp L3 Procedures Hospitalists Procedures: 56860 Advncd Care Plan 30 Min 04/15/25 8557 <Electronically signed by Shruti Jara MD> Cosigner Signature (if applicable): CC: Dr. Zaida Gaston MD; Dr. Shruti Jara MD~ Signed [facility] Work Phone: 1(980) 536-170908-07-2025 Evaluation note* Diagnosis Onset Date Resolution Status Admit Date Hydronephrosis with urinary obstruction due to ureteral calculus acute April 15, 2025 10:06am [facility] Work Phone: 1(360) 468-503908-07-2025 Evaluation note* Diagnosis Onset Date Resolution Status Admit Date Acute pyelonephritis due to bacteria acute April 15, 2025 10:06am Hydronephrosis with urinary obstruction due to ureteral calculus acute April 15, 2025 10:06am Kidney transplant recipient acute April 15, 2025 10:06am Staphylococcus aureus bacteremia acu te April 15, 2025 10:06am Acute on chronic renal insufficiency chronic April 15, 2025 10:06am [facility] Work Phone: 1(572) 249-295408-06-2025 Radiology Diagnostic study note [facility] Imaging Services [address] [place] [address] Abdomen/Pelvis without Cont MR#: [id number] Acct: [id number] Name: ITALO BURGOS Rep #: [id number] : 1970 M 54 From: Tasneem Linn MD PCP: Dr. Zaida Gaston MD Status: REG E R Study:Abdomen/Pelvis without Cont Date of Exa m: 04/14/25 Exam# [id number] Ordering Dr: Daylin Santiago MD PROCEDURE: ABDOMEN/PELVIS WITHOUT CONT N/A REASON FOR EXAM: KIDNEY STONE TECHNIQUE: ABDOMEN/PELVIS WITHOUT CONT Noncontrast technique limits evaluation of the abdominal and pelvic viscera. Coronal and Sagittal reconstruction series were provided. One or more dose reduction techniques were used (e.g., Automated exposure control, adjustment of the mA and/or kV according to patient size, use of iterative reconstruction technique). RADIATION DOSE SUMMARY: CTDlvol: 8 mGy DLP: 432 mGycm COMPARISON: 03/10/2025 FINDINGS: Under aerated lung bases. Normal heart size. Small pericardial effusion. Status post cholecystectomy. Unremarkable liver, pancreas, spleen, adrenal glands. [place] kidneys are mildly atrophic. There is a right hemipelvic renal transplant, status post percutaneous nephrostomy tube placement which is stable, good position. There is perinephric fat stranding is noted previously. There is a 1 mm right renal calcification. In the mid ureter, there is redemonstration of a 9 mm ureteral stone, series 2, image 147. There is mild distal hydroureter extending to the bladder. There is bladder wall thickening and adjacent fat stranding. Normal prostate. No retroperitoneal or pelvic adenopathy. No free air. Distal esophageal air, correlate for reflux or dysmotility. Nonobstructed. Normal appendix. No acute large bowel findings. Lumbar spine scoliosis and degeneration. Renal osteodystrophy. CT/Abdomen/Pelvis without Cont IMPRESSION: Status post right hemipelvic renal transplant with percutaneous nephrostomy in good position.. Persistent mid ureteral 9 mm stone causing hydronephrosis. Superimposed kidney infection is possible. Possible cystitis. Reading Location: [place] [address] CC: Dr. Zaida Gaston MD; Dr. Chuy Santiago MD ~ Dispersion Mixer: Signed [facility]08-06-2025 Radiology Diagnostic study note [facility] Imaging Services [address] [place], [place] [address] Chest 1 View (Portable) MR#: [id number] Acct: [id number] Name: ITALO BURGOS Rep #: [id number] : 1970 M 54 From: Gallito Jack MD PCP: Dr. Zaida Gaston MD Status: REG E R Study:Chest 1 View (Portable) Date of Exam: 04/14/25 Exam# [id number] Ordering Dr: Daylin Santiago MD PROCEDURE: CHEST 1 VIEW (PORTABLE) 04/14/2025 REASON FOR EXAM: NONPRODUCTIVE COUGH, FEVER, RALES RIGHT BASE TECHNIQUE: Frontal view of the chest. COMPARISON: 01/2025. FINDINGS: The heart is normal in size. The lungs are clear. No consolidation. No acute osseous abnormalities. RAD/Chest 1 View (Portable) IMPRESSION: No Acute Findings. Reading Location: [facility] CC: Dr. Zaida Gaston MD; Dr. Chuy Santiago MD ~ Dispersion Mixer: Signed [facility]08-04-2025 Telephone encounter Note* Telephone Encounter - Verna Jensen RPh - 04/12/2025 10:19 AM EDT Called patient for scheduled phone appointment today. Unable to reach x 2, LMOM. [facility] Pharmacy Rescheduling Outreach Call center, please contact patient and reschedule telephone visit for Diabetes management within ~4 week(s). (Visit length: 30 minutes) Thank you, Verna Jensen RPh 04/12/2025 10:19 AM [facility] Work Phone: 1(400) 652-559108-04-2025 Miscellaneous Notes* Telephone Encounter - Mey VernaPietro - 04/12/2025 10:19 AM EDT Called patient for scheduled phone appointment today. Unable to reach x 2, LMOM. Primary Care Pharmacy Rescheduling Outreach Call center, please contact patient and reschedule telephone visit for Diabetes management within ~4 week(s). (Visit length: 30 minutes) Thank you, Verna Jensen RPh 04/12/2025 10:19 AM [facility] Telephone encounter Note * Telephone Encounter - Jeanette Rendon RN - 04/07/2025 1:09 PM EDT Luzmaria DALY asked me to come down and talk with Pt. Pt has a Nephrostomy and was not able to get the bag off. Pt states he has not changed the bag in 2 weeks. He states the provider told him he could change it when ever he wanted. I told him to try using a warm wet wash cloth and see if it was just stuck because there was build up that had adhered the bag in. Pt was going to try this. I asked the Pt is he changed the whole appliance himself, and he said he did. I told him if he could get the bag off he may have to do a complete appliance change. I also told the Pt he should change the bag more than every 2 weeks. Pt verbalized understanding. Jeanette Rendon RN [facility]07-30-2025 Miscellaneous Notes* Telephone Encounter - Jeanette Rendon RN - 04/07/2025 1:09 PM EDT Luzmaria DALY asked me to come down and talk with Pt. Pt has a Nephrostomy and was not able to get the bag off. Pt states he has not changed the bag in 2 weeks. He states the provider told him he could change it when ever he wanted. I told him to try using a warm wet wash cloth and see if it was just stuck because there was build up that had adhered the bag in. Pt was going to try this. I asked the Pt is he changed the whole appliance himself, and he said he did. I told him if he could get the bag off he may have to do a complete appliance change. I also told the Pt he should change the bag more than every 2 weeks. Pt verbalized understanding. Jeanette Rendon, RN * Telephone Encounter - Luzmaria Bagley MSW - 04/07/2025 12:49 PM EDT This Sw received call from [facility] asking Sw to speak with patient regarding sendingnurse to see patientregarding tube sticking out of his side. Sw noted that we do not have nursing in [place] that make home visits. Sw spoke with patient trying to discern what social service needs he has at this time. Patient states I need help with the tube sticking out of my side. Sw tried to gain more details and was able to understand that patient goes to [facility]. Patient has ostomy and is asking about ostomy care issue. Sw noted that she would place patient on hold and requested assistance from triage nurse to assess patient needs. documented in [facility] Telephone encounter Note * Telephone Encounter - Luzmaria Bagley MSW - 04/07/2025 12:49 PM EDT This Sw received call from [facility] asking Sw to speak with patient regarding sendingnurse to see patientregarding tube sticking out of his side. Sw noted that we do not have nursing in [place] that make home visits. Sw spoke with patient trying to discern what social service needs he has at this time. Patient states I need help with the tube sticking out of my side. Sw tried to gain more details and was able to understand that patient goes to [facility]. Patient has ostomy and is asking about ostomy care issue. Sw noted that she would place patient on hold and requested assistance from triage nurse to assess patient needs. [facility]07-28-2025 Telephone encounter Note* Telephone Encounter - Xi Moreno - 04/05/2025 1:06 PM EDT Prescription Refill Information The patient has been identified by name and date of : Yes Caregiver verified no other encounters exist for this prescription request: Yes Caregiver confirmed with patient/requestor that no other refills are due, in the near future, with this provider at this time: Yes The last office visit in the department: 02/05/2025 Does the patient have a future office visit with this provider/department: Yes Requested Prescriptions Pending Prescriptions Disp Refills gabapentin (NEURONTIN) 100 mg capsule 30 capsule 5 Sig: Take 1 capsule by mouth daily at bedtime for 180 days. Xi Gunter April 05, 2025 1:07 PM [facility]07-28-2025 Miscellaneous Notes* Telephone Encounter - Xi Moreno - 04/05/2025 1:06 PM EDT Prescription Refill Information The patient has been identified by name and date of : Yes Caregiver verified no other encounters exist for this prescription request: Yes Caregiver confirmed with patient/requestor that no other refills are due, in the near future, with this provider at this time: Yes The last office visit in the department: 02/05/2025 Does the patient have a future office visit with this provider/department: Yes Requested Prescriptions Pending Prescriptions Disp Refills gabapentin (NEURONTIN) 100 mg capsule 30 capsule 5 Sig: Take 1 capsule by mouth daily at bedtime for 180 days. Xi Gunter April 05, 2025 1:07 PM documented in this encounterOur [facility]07-27-2025 Discharge summary [facility] Medical Records Department [address] [place] [address] Emergency Department Summary 04/04/25 MR#: [id number] Acct: [id number] Name: ITALO BURGOS Rep #:[id number] : 1970 54 From: Chuy Santiago MD PCP: Dr. Zaida Gaston MD Status:REG E R Location: ED HPI History of Present Illness Chief Complaint: Numb/Ting Detail of Chief Complaint: Bilateral hand numbness, cough and nausea and vomiting Informant: patient Onset/Context/Timing Onset: Yesterday Context: Sudden Onset Timing: Continuous Quality: Numbness hands only, nausea and vomiting Location: Hands and GI Current Severity: Mild Maximum Severity: Mild Worsened by: Nothing Relieved by: Nothing Associated Symptoms Associated Symptoms: Does endorse weight loss. He is on weekly injections for his diabetes Narrative Narrative: Patient is a 54-year-old male. He presents from alf. He arrived by ambulance. He denies headache. He denies double vision, blurred vision or lossof vision. He denies ringing in his ears or decreased hearing. He denies rhinorrhea, congestion, postnasal drainage or sore throat. He does have a slight cough. The cough is nonproductive. Yesterday he had nausea and vomiting. There was no blood or coffee-ground's noted in his emesis. He denies black or maroon- colored stool. He does endorse frequency and thirst. He also endorses dry mouth. He denies nocturia. He denies hematuria, dysuria or change in the color of his urine. He denies myalgias or arthralgias. He denies problems with balance or coordination. He denies perioral numbness or numbness or tingling in his feet. He does not give symptoms of claudication. He doesadmit that he had more hair on his legs when he was younger. His last A1c was 3 months ago and was 13. Prior similar symptoms: No Recent Illness/Hospitalization: No PFSH PFSH Medical History Anxiety Depression Diabetes Former smoker CPAP (continuous [...] catheterization (LHC) (~06/26/11) Atherosclerotic heart disease of [place] coronary artery without angina pectoris Essential hypertension [...] Medications ?Medication ?Instructions ?Recorded ?Last Taken ?Type prednisone 5 mg tablet 5 mg PO DAILY steroid 03/10/25 History fluoxetine 10 mg capsule 10 mg PO DAILY 03/24/2410/03 History insulin lispro protamine-lispro See Rx Instructions paul bcut .tid 03/30/24 03/10/25 Rx 100 unit/mL (50-50) subcutaneous with meals #42 mL pen (Humalog Mix 50-50 KwikPen) mycophenolate sodium 180 mg 360 mg PO BID 01/26/2511/03 History tablet,delayed release sulfamethoxazole 400 1 tab PO MOWEFR 01/26/2511/03 History mg-trimethoprim 80 mg tablet carvedilol 12.5 mg tablet 12.5 mg PO BID 03/10/2511/03 History cephalexin 500 mg capsule 500 mg PO Q6 #28 CAPSULES Unknown Rx escitalopram oxalate 10 mg tablet 10 mg PO DAILY 03/1003/09/25 History sulfamethoxazole 800 1 tab PO BID #14 TABLETS 11/03 Unknown Rx mg-trimethoprim 160 mg tablet Allergy/AdvReac Type Severity Reaction Status Date / Time No Known Allergies Allergy Verified 04/04/25 11:08 Family History Mother Heart disease Hypertension Father [...] none ROS ROS ED Constitutional Constitutional ED: Reports weight loss; Denies chills, fever(s), subjective or sweats Eyes Eyes: Denies blurry vision, change in vision or diplopia ENT ENT ED: Denies ear pain, rhinorrhea or sore throat Cardiovascular Cardiovascular: Denies chest pain, orthopnea, palpitations or paroxysmal nocturnal dyspnea Respiratory/Chest Respiratory/Chest: Reports cough; Denies dyspnea, dyspnea on exertion, orthopnea, paroxysmal nocturnal dyspnea or sputum Gastrointestinal Gastrointestinal: Reports nausea and vomiting; Denies abdominal pain, constipation, diarrhea or melena Genitourinary Genitourinary ED: Reports urinary frequency; Denies dysuria or hematuria Musculoskeletal Musculoskeletal: Denies arthralgias or myalgias Integumentary Denies Abrasions or rash Neurologic Neurologic: Reports paresthesias RUE and LUE and weakness; Denies headache(s) Psychiatric Psychiatric: Denies anxiety or depression Endocrine Endocrinology: Reports polydipsia; Denies cold intolerance or heat intolerance Hematologic/Lymphatic Hematologic/Lymphatic: Reports systems reviewed and no addt'l complaints, exceptas documented EXAM Physical Exam Const Vital Signs: 04/04/25 11:05 04/04/25 13:04 04/04/25 15:00 Temperature 98.9 F Temperature Source Oral Pulse Rate 108 H 92 97 Respiratory Rate 16 17 16 Blood Pressure 129/74 H 133/83 H 126/74 H Blood Pressure Mean 92 99 91 Pulse Ox 100 99 Oxygen Delivery Method Room Air Room Air Positive well nourished and well developed Constitutional Narrative: Monitor Veals sinus tachycardia. QS complexes narrow. Patient has temporal wasting. General Appearance ED: well developed; Negative for pallor HEENT Reports dry mucous membranes HEENT Narrative: Ears normal. Nares patent. Posterior pharynx normal. Uvula is midline. Thereis no deviation tongue or protrusion. Mouth ED: Yes dry mucous membranes Mouth: dry mucous membranes Eyes PERRL and EOMs intact bilaterally General Eye ED: Negative for pale conjunctiva or scleral icterus Neck no lymphadenopathy and supple Chest Wall inspection of chest normal and palpation of chest normal Resp normal respiratory effort and clear to auscultation bilaterally Cardio regular rhythm, S1 normal heart sound, S2 normal heart sound and no murmurs Rate: tachycardic GI normal to inspection, nondistended, normoactive bowel sounds, non-tender, non- distended and no masses; Negative for hepatosplenomegaly Back/Spine no CVA tenderness Extremity Negative for normal to inspection Extremity Narrative: There is muscle wasting webspace between thumb and index finger bilaterally. There is no cyanosis or clubbing noted. He does have stigmata of peripheral arterial disease of his lower extremities. Median, radial and ulnar function intact bilaterally. Neuro oriented x3, CN's II-XII intact bilaterally and No no sensory deficits noted Sensorium / Orientation: alert Motor Exam: strength 5/5 throughout Psych mental status grossly normal Skin no rashes or lesions noted, no wounds and skin turgor normal General Skin Exam: Negative for elasticity normal, jaundice or pallor MDM MDM MDM Narrative Medical decision making narrative: Patient may have hyperglycemia in light of his polydipsia and increased urination. Based on his test A1c is poorly controlled. There is also concern for muscle wasting and weight loss. Will obtain CMP to assess electrolytes, renal function, CO2 anion gap and glucose as well as his liver enzymes. Also ifhis calcium and alkaline phosphatase are elevated will need to assess for possible malignancy. History & Record Review Additional record(s) reviewed:: Prior outpatient record (Seen by burlesque dancer, Dr. Durand for diabetic neuropathy.), Prior ED visit (Seen first part of March for cellulitis. Seen in February for nephrostomy tube failure with leakage. Seen in January for acute kidney injury.) and Prior labs Lab Data Labs: Laboratory Results - last 24 hr 04/04/25 04/04/25 04/04/25 11:42 12:15 13:34 WBC 8.2 RBC 4.13 L Hgb 12.3 L Hct 36.8 L MCV 89.1 MCH 29.8 MCHC 33.4 RDW Std Deviation 40.5 RDW Coeff of Tomy 12.4 Plt Count 341 MPV 9.3 Immature Gran % (Auto) 0.200 Neut % (Auto) 75.6 H Lymph % (Auto) 14.4 L Gove % (Auto) 8.7 Eos % (Auto) 0.7 Baso % (Auto) 0.4 Absolute Neuts (auto) 6.2 Absolute Lymphs (auto) 1.17 Nucleated RBC % 0 Sodium 128 L Potassium 5.1 Chloride 94 L Carbon Dioxide 22.2 Anion Gap 12 BUN 21 H Creatinine 1.26 H Estim Creat Clear Calc 63.33 Est GFR (MDRD) Non-Af 67 BUN/Creatinine Ratio 16.7 Glucose 581 H* Calcium 9.8 Urine Color Yellow Urine Clarity Sl. Cloudy Urine pH 6.5 Ur Specific [place] 1.010 Urine Protein 30 H Urine Glucose (UA) 1000 H Urine Ketones Negative Urine Occult Blood 150 H Urine Nitrite Positive H Urine Bilirubin Negative Urine Urobilinogen 1 H Ur Leukocyte Esterase 500 H Urine RBC 5-10 SEEN Urine WBC 10-25 SEEN Ur Squamous Epith Cells 0 SEEN Urine Bacteria 1+ Urine Mucus 0 SEEN POC Glucose 440 H 04/04/25 15:52 WBC RBC Hgb Hct MCV MCH MCHC RDW Std Deviation RDW Coeff of Tomy Plt Count MPV Immature Gran % (Auto) Neut % (Auto) Lymph % (Auto) Gove % (Auto) Eos % (Auto) Baso % (Auto) Absolute Neuts (auto) Absolute Lymphs (auto) Nucleated RBC % Sodium Potassium Chloride Carbon Dioxide Anion Gap BUN Creatinine Estim Creat Clear Calc Est GFR (MDRD) Non-Af BUN/Creatinine Ratio Glucose Calcium Urine Color Urine Clarity Urine pH Ur Specific [place] Urine Protein Urine Glucose (UA) Urine Ketones Urine Occult Blood Urine Nitrite Urine Bilirubin Urine Urobilinogen Ur Leukocyte Esterase Urine RBC Urine WBC Ur Squamous Epith Cells Urine Bacteria Urine Mucus POC Glucose 294 H Treatment and Re-Evaluation :: Most recent BGT is 440. This is a decrease of 140. Additional liter of normal saline was ordered and additional 10 units of insulin was ordered. Comments:: Repeat blood sugar is 294. Will discharge to home. Discharge Plan Triage Chief Complaint: Numb/Ting ED Provider: Chuy Santiago Dx/Rx/DC Orders Clinical Impression: Controlled type 2 diabetes mellitus with hyperglycemia, with long-term current use of insulin, Overweight, Atherosclerotic heart disease of [place] coronary artery without angina pectoris, Hypertension, Paresthesia of both hands, Diabetic polyneuropathy, Poorly controlled diabetes mellitus, Pseudohyp onatremia, Elevated serum creatinine Instructions: ED Diabetic Hyperglycemia, ED Paraesthesias Prescriptions: No Action fluoxetine 10 mg capsule 10 mg PO DAILY prednisone 5 mg Tablet 5 mg PO DAILY sulfamethoxazole-trimethoprim 400-80 mg tablet 1 tab PO MOWEFR mycophenolate sodium 180 mg tablet,delayed release (DR/EC) 360 mg PO BID carvedilol 12.5 mg tablet 12.5 mg PO BID escitalopram oxalate 10 mg tablet 10 mg PO DAILY sulfamethoxazole-trimethoprim 800-160 mg tablet 1 tab PO BID Qty: 14 0RF cephalexin 500 mg capsule 500 mg PO Q6 Qty: 28 0RF Humalog Mix 50-50 KwikPen 100 unit/mL (50-50) insulin pen See Rx Instructions subcut .tid with meals Qty: 42 5RF Rx Instructions: 40-40-60 units subcutaneously TID WITH MEALS; Primary Care Provider: Zaida Gaston Referrals: Zaida Gaston MD [Primary Care Provider] - 3-5 Days Print Language: Cypriot Disposition Disposition: Home, Self Care What to do if you have Problems For any increased pain, shortness of breath, bleeding, nausea or vomiting, chestpain, or any unexpected problems, contact your Primary Care Provider. Call [facility] ([phone]) or report tothe closest Emergency Room. Call 911 if necessary. 04/04/25 5225 Cosigner Signature (if applicable): CC: Dr. Zaida Gaston MD ~ Signed [facility]07-27-2025 Discharge summary Author Chuy Santiago [facility] Note Date/Time April 04, 2025 4:28 pm [facility] Medical Records Department [address] [place] [address] Emergency Department Summary 04/04/25 MR#: [id number] Acct: [id number] Name: ITALO BURGOS Rep #:[id number] : 1970 54 From: Chuy Santiago MD PCP: Dr. Zaida Gaston MD Status:REG E R Location: ED HPI History of Present Illness Chief Complaint: Numb/Ting Detail of Chief Complaint: Bilateral hand numbness, cough and nausea and vomiting Informant: patient Onset/Context/Timing Onset: Yesterday Context: Sudden Onset Timing: Continuous Quality: Numbness hands only, nausea and vomiting Location: Hands and GI Current Severity: Mild Maximum Severity: Mild Worsened by: Nothing Relieved by: Nothing Associated Symptoms Associated Symptoms: Does endorse weight loss. He is on weekly injections for his diabetes Narrative Narrative: Patient is a 54-year-old male. He presents from alf. He arrived by ambulance. He denies headache. He denies double vision, blurred vision or lossof vision. He denies ringing in his ears or decreased hearing. He denies rhinorrhea, congestion, postnasal drainage or sore throat. He does have a slight cough. The cough is nonproductive. Yesterday he had nausea and vomiting. There was no blood or coffee-ground's noted in his emesis. He denies black or maroon-colored stool. He does endorse frequency and thirst. He also endorses dry mouth. He denies nocturia. He denies hematuria, dysuria or change in the color of his urine. He denies myalgias or arthralgias. He denies problems with balance or coordination. He denies perioral numbness or numbness or tingling in his feet. He does not give symptoms of claudication. He does admit that he had more hair on his legs when he was younger. His last A1c was 3 months ago and was 13. Prior similar symptoms: No Recent Illness/Hospitalization: No PFSH PFSH Medical History Anxiety Depression Diabetes Former smoker CPAP (continuous [...] catheterization (LHC) (~06/26/11) Atherosclerotic heart disease of [place] coronary artery without angina pectoris Essential hypertension [...] Medications ?Medication ?Instructions ?Recorded ?Last Taken ?Type prednisone 5 mg tablet 5 mg PO DAILY steroid 03/10/25 History fluoxetine 10 mg capsule 10 mg PO DAILY 03/24/2410/03 History insulin lispro protamine-lispro See Rx Instructions paul bcut .tid 03/30/24 03/10/25 Rx 100 unit/mL (50-50) subcutaneous with meals #42 mL pen (Humalog Mix 50-50 KwikPen) mycophenolate sodium 180 mg 360 mg PO BID 01/26/2511/03 History tablet,delayed release sulfamethoxazole 400 1 tab PO MOWEFR 01/26/2511/03 History mg-trimethoprim 80 mg tablet carvedilol 12.5 mg tablet 12.5 mg PO BID 03/10/2511/03 History cephalexin 500 mg capsule 500 mg PO Q6 #28 CAPSULES Unknown Rx escitalopram oxalate 10 mg tablet 10 mg PO DAILY 03/1003/09/25 History sulfamethoxazole 800 1 tab PO BID #14 TABLETS 11/03 Unknown Rx mg-trimethoprim 160 mg tablet Allergy/AdvReac Type Severity Reaction Status Date / Time No Known Allergies Allergy Verified 04/04/25 11:08 Family History Mother Heart disease Hypertension Father [...] none ROS ROS ED Constitutional Constitutional ED: Reports weight loss; Denies chills, fever(s), subjective or sweats Eyes Eyes: Denies blurry vision, change in vision or diplopia ENT ENT ED: Denies ear pain, rhinorrhea or sore throat Cardiovascular Cardiovascular: Denies chest pain, orthopnea, palpitations or paroxysmal nocturnal dyspnea Respiratory/Chest Respiratory/Chest: Reports cough; Denies dyspnea, dyspnea on exertion, orthopnea, paroxysmal nocturnal dyspnea or sputum Gastrointestinal Gastrointestinal: Reports nausea and vomiting; Denies abdominal pain, constipation, diarrhea or melena Genitourinary Genitourinary ED: Reports urinary frequency; Denies dysuria or hematuria Musculoskeletal Musculoskeletal: Denies arthralgias or myalgias Integumentary Denies Abrasions or rash Neurologic Neurologic: Reports paresthesias RUE and LUE and weakness; Denies headache(s) Psychiatric Psychiatric: Denies anxiety or depression Endocrine Endocrinology: Reports polydipsia; Denies cold intolerance or heat intolerance Hematologic/Lymphatic Hematologic/Lymphatic: Reports systems reviewed and no addt'l complaints, exceptas documented EXAM Physical Exam Const Vital Signs: 04/04/25 11:05 04/04/25 13:04 04/04/25 15:00 Temperature 98.9 F Temperature Source Oral Pulse Rate 108 H 92 97 Respiratory Rate 16 17 16 Blood Pressure 129/74 H 133/83 H 126/74 H Blood Pressure Mean 92 99 91 Pulse Ox 100 99 Oxygen Delivery Method Room Air Room Air Positive well nourished and well developed Constitutional Narrative: Monitor Veals sinus tachycardia. QS complexes narrow. Patient has temporal wasting. General Appearance ED: well developed; Negative for pallor HEENT Reports dry mucous membranes HEENT Narrative: Ears normal. Nares patent. Posterior pharynx normal. Uvula is midline. Thereis no deviation tongue or protrusion. Mouth ED: Yes dry mucous membranes Mouth: dry mucous membranes Eyes PERRL and EOMs intact bilaterally General Eye ED: Negative for pale conjunctiva or scleral icterus Neck no lymphadenopathy and supple Chest Wall inspection of chest normal and palpation of chest normal Resp normal respiratory effort and clear to auscultation bilaterally Cardio regular rhythm, S1 normal heart sound, S2 normal heart sound and no murmurs Rate: tachycardic GI normal to inspection, nondistended, normoactive bowel sounds, non-tender, non-distended and no masses; Negative for hepatosplenomegaly Back/Spine no CVA tenderness Extremity Negative for normal to inspection Extremity Narrative: There is muscle wasting webspace between thumb and index finger bilaterally. There is no cyanosis or clubbing noted. He does have stigmata of peripheral arterial disease of his lower extremities. Median, radial and ulnar function intact bilaterally. Neuro oriented x3, CN's II-XII intact bilaterally and No no sensory deficits noted Sensorium / Orientation: alert Motor Exam: strength 5/5 throughout Psych mental status grossly normal Skin no rashes or lesions noted, no wounds and skin turgor normal General Skin Exam: Negative for elasticity normal, jaundice or pallor MDM MDM MDM Narrative Medical decision making narrative: Patient may have hyperglycemia in light of his polydipsia and increased urination. Based on his test A1c is poorly controlled. There is also concern for muscle wasting and weight loss. Will obtain CMP to assess electrolytes, renal function, CO2 anion gap and glucose as well as his liver enzymes. Also ifhis calcium and alkaline phosphatase are elevated will need to assess for possible malignancy. History & Record Review Additional record(s) reviewed:: Prior outpatient record (Seen by burlesque dancer, Dr. Durand for diabetic neuropathy.), Prior ED visit (Seen first part of March for cellulitis. Seen in February for nephrostomy tube failure with leakage. Seen in January for acute kidney injury.) and Prior labs Lab Data Labs: Laboratory Results - last 24 hr 04/04/25 04/04/25 04/04/25 11:42 12:15 13:34 WBC 8.2 RBC 4.13 L Hgb 12.3 L Hct 36.8 L MCV 89.1 MCH 29.8 MCHC 33.4 RDW Std Deviation 40.5 RDW Coeff of Tomy 12.4 Plt Count 341 MPV 9.3 Immature Gran % (Auto) 0.200 Neut % (Auto) 75.6 H Lymph % (Auto) 14.4 L Gove % (Auto) 8.7 Eos % (Auto) 0.7 Baso % (Auto) 0.4 Absolute Neuts (auto) 6.2 Absolute Lymphs (auto) 1.17 Nucleated RBC % 0 Sodium 128 L Potassium 5.1 Chloride 94 L Carbon Dioxide 22.2 Anion Gap 12 BUN 21 H Creatinine 1.26 H Estim Creat Clear Calc 63.33 Est GFR (MDRD) Non-Af 67 BUN/Creatinine Ratio 16.7 Glucose 581 H* Calcium 9.8 Urine Color Yellow Urine Clarity Sl. Cloudy Urine pH 6.5 Ur Specific [place] 1.010 Urine Protein 30 H Urine Glucose (UA) 1000 H Urine Ketones Negative Urine Occult Blood 150 H Urine Nitrite Positive H Urine Bilirubin Negative Urine Urobilinogen 1 H Ur Leukocyte Esterase 500 H Urine RBC 5-10 SEEN Urine WBC 10-25 SEEN Ur Squamous Epith Cells 0 SEEN Urine Bacteria 1+ Urine Mucus 0 SEEN POC Glucose 440 H 04/04/25 15:52 WBC RBC Hgb Hct MCV MCH MCHC RDW Std Deviation RDW Coeff of Tomy Plt Count MPV Immature Gran % (Auto) Neut % (Auto) Lymph % (Auto) Gove % (Auto) Eos % (Auto) Baso % (Auto) Absolute Neuts (auto) Absolute Lymphs (auto) Nucleated RBC % Sodium Potassium Chloride Carbon Dioxide Anion Gap BUN Creatinine Estim Creat Clear Calc Est GFR (MDRD) Non-Af BUN/Creatinine Ratio Glucose Calcium Urine Color Urine Clarity Urine pH Ur Specific [place] Urine Protein Urine Glucose (UA) Urine Ketones Urine Occult Blood Urine Nitrite Urine Bilirubin Urine Urobilinogen Ur Leukocyte Esterase Urine RBC Urine WBC Ur Squamous Epith Cells Urine Bacteria Urine Mucus POC Glucose 294 H Treatment and Re-Evaluation :: Most recent BGT is 440. This is a decrease of 140. Additional liter of normal saline was ordered and additional 10 units of insulin was ordered. Comments:: Repeat blood sugar is 294. Will discharge to home. Discharge Plan Triage Chief Complaint: Numb/Ting ED Provider: Chuy Santiago Dx/Rx/DC Orders Clinical Impression: Controlled type 2 diabetes mellitus with hyperglycemia, with long-term current use of insulin, Overweight, Atherosclerotic heart disease of [place] coronary artery without angina pectoris, Hypertension, Paresthesia of both hands, Diabetic polyneuropathy, Poorly controlled diabetes mellitus, Pseudohyponatremia, Elevated serum creatinine Instructions: ED Diabetic Hyperglycemia, ED Paraesthesias Prescriptions: No Action fluoxetine 10 mg capsule 10 mg PO DAILY prednisone 5 mg Tablet 5 mg PO DAILY sulfamethoxazole-trimethoprim 400-80 mg tablet 1 tab PO MOWEFR mycophenolate sodium 180 mg tablet,delayed release (DR/EC) 360 mg PO BID carvedilol 12.5 mg tablet 12.5 mg PO BID escitalopram oxalate 10 mg tablet 10 mg PO DAILY sulfamethoxazole-trimethoprim 800-160 mg tablet 1 tab PO BID Qty: 14 0RF cephalexin 500 mg capsule 500 mg PO Q6 Qty: 28 0RF Humalog Mix 50-50 KwikPen 100 unit/mL (50-50) insulin pen See Rx Instructions subcut .tid with meals Qty: 42 5RF Rx Instructions: 40-40-60 units subcutaneously TID WITH MEALS; Primary Care Provider: Zaida Gaston Referrals: Zaida Gaston MD [Primary Care Provider] - 3-5 Days Print Language: Cypriot Disposition Disposition: Home, Self Care What to do if you have Problems For any increased pain, shortness of breath, bleeding, nausea or vomiting, chestpain, or any unexpected problems, contact your Primary Care Provider. Call [facility] ([phone]) or report to the closest Emergency Room. Call 911 if necessary. 04/04/25 1628 <Electronically signed by Chuy Santiago MD> Cosigner Signature (if applicable): CC: Dr. Zaida Gaston MD ~ Signed [facility] Work Phone: 1(214) 171-424907-07-2025 Telephone encounter Note* Telephone Encounter - Polina Molina RN - 03/15/2025 10:47 AM EDT Tried calling patient to follow up regarding medications/immunosuppressants but no answer, left voicemail for both patient Italo Burgos and alternate contact Laura Amin to call the Kidney Transplant Office back. Polina Molina RN [facility]07-07-2025 Miscellaneous Notes* Telephone Encounter - Polina Molina RN - 03/15/2025 10:47 AM EDT Tried calling patient to follow up regarding medications/immunosuppressants but no answer, left voicemail for both patient Italo Burgos and alternate contact Laura Amin to call the Kidney Transplant Office back. Polina Molina, RN documented in this encounterOur [facility] Of Mercy Hospital07-07-2025 Telephone encounter Note * Telephone Encounter - 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 APRN.CNP - 03/15/2025 7:20 AM EDT Med refills needed. Not taking medications consistently so restarting bupropion at lower dose. 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 APRN.CNP [facility]07-07-2025 Miscellaneous Notes* Telephone Encounter - 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 APRN.CNP - 03/15/2025 7:20 AM EDT Med refills needed. Not taking medications consistently so restarting bupropion at lower dose. 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 APRN.CNP documented in this encounterOur Lady Of Mercy Hospital07-02-2025 Radiology Diagnostic study note [facility] Imaging Services [address], [place] [id number] Abdomen/Pelvis without Cont MR#: [id number] Acct: [id number] Name: ITALO BURGOS Rep #: [id number] : 1970 M 54 From: Zuleyka Solis MD PCP: Dr. Zaida Gaston MD Status: REG E R Study:Abdomen/Pelvis without Cont Date of Exa m: 03/10/25 Exam# [id number] Ordering Dr: Byron Saldana DO EXAM: CT Abdomen and Pelvis Without Intravenous Contrast CLINICAL INDICATION: FLANK PAIN TECHNIQUE: Axial computed tomography images of the abdomen and pelvis without intravenous contrast.This CT exam was performed using one or [...] the colon consistent with constipation. [facility] CC: Dr. Zaida Gaston MD; Dr. Byron Saldana DO ~ Dispersion Mixer: Signed [facility]06-30-2025 Telephone encounter Note* Telephone Encounter - Verna Jensen, [facility] - 03/08/2025 3:50 PM EDT Had a return call from nurse, Xiang. She reported the following: - Pt last seen by Dr. Durand in July 2024 - A1c was 8.5% - F/up visit was scheduled for 12/03/24 and he no-showed. Outreach letter was sent. Currently listedas no follow-up. - Did confirm he was on Trulicity 4.5mg, had 90 DS and 1 refill. - Only other med at that time was Humalog 50/50 mix: 40 units with breakfast and lunch and 60 unitswith supper. - Hx of taking metformin and Invokana, 6949-2319, was discontinued but uncertain why. - Previously was on basal/bolus insulin, switched because of hypoglycemia - Endo diagnosis is T2DM per charts though nurse couldn't find labs confirming this. Endo does not have any documentation of him being T1DM (first seen in 2018) Will send as FYI to PCP and also suggest getting Dm dx labs ordered. Verna Jensen PharmD, [facility] Primary Care Clinical Pharmacist [facility] Work Phone: [phone] 430-763906-30-2025 Miscellaneous Notes* Telephone Encounter - Verna Jensen RPh - 03/08/2025 3:50 PM EDT Had a return call from nurse, Xiang. She reported the following: - Pt last seen by Dr. Durand in July 2024 - A1c was 8.5% - F/up visit was scheduled for 12/03/24 and he no-showed. Outreach letter was sent. Currently listedas no follow-up. - Did confirm he was on Trulicity 4.5mg, had 90 DS and 1 refill. - Only other med at that time was Humalog 50/50 mix: 40 units with breakfast and lunch and 60 unitswith supper. - Hx of taking metformin and Invokana, 1504-9024, was discontinued but uncertain why. - Previously was on basal/bolus insulin, switched because of hypoglycemia - Endo diagnosis is T2DM per charts though nurse couldn't find labs confirming this. Endo does not have any documentation of him being T1DM (first seen in 2018) Will send as FYI to PCP and also suggest getting Dm dx labs ordered. Verna Jensen PharmD, [facility] Primary Care Clinical Pharmacist * Telephone Encounter - Verna Jensen RP - 03/08/2025 3:09 PM EDT PharmMery called burlesque dancer Dr. Steve Durand's office ([phone]) to confirm dx of T1 vs T2 and to also confirm Trulicity dose and any past DM medications. LMOM for nurse for someone to call me back. Can see office note from 03/08 for more detail. Verna Jensen PharmD, [facility] Primary Care Clinical Pharmacist documented in this encounterOur Lady Of Mercy Hospital06-30-2025 Telephone encounter Note * Telephone Encounter - Verna Jensen RPh - 03/08/2025 3:09 PM EDT PharmMery called burlesque dancer Dr. Steve Durand's office ([phone]) to confirm dx of T1 vs T2 and to also confirm Trulicity dose and any past DM medications. LMOM for nurse for someone to call me back. Can see office note from 03/08 for more detail. Verna Jensen PharmD, [facility] Primary Care Clinical Pharmacist [facility]06-30-2025 History of Present illness Narrative* Verna Jensen RPh - 03/08/2025 10:30 AM EDT Primary Care Pharmacy Visit CC (Reason for [...] T1DM). Reports last appt with Dr. Durand (burlesque dancer) was 2 months ago. Says no med changes were made and not sure when next follow-up is scheduled. No specific questions or concerns today. He thinks DM control is going good. Reports he is currently homeless, living [place]. Working towards getting an apartment. Does have refrigerator accessfor insulin. Denies any cost issues. All medications [...] 50/50) 30 units once daily at bedtime (confirmedhe is taking 40 units with breakfast and lunch and 50 units with dinner (3 injections/day)) Trulicity on (uncertain of dose; confident he is taking) CGM Data Dexcom G7 *Pt was able to review Averages but then applicator sprayer turned off No issues with lows Date [...] not present. Adherence: denies missed doses. Pharmacy: [facility] [place] [address] [phone] [facility] [phone] [id number] Rx coverage: Payor: [facility] MEDICARE / Plan: [facility] DUAL COMPLETE PPO SNP / Product [...] Polyneuropathy Associated With Type 2 Diabetes Mellitus ([facility]) Nausea Vomiting Moderate Episode of Recurrent Major Depressive Disorder ([facility]) Stage 3a Chronic Kidney Disease ([facility]) Right Leg Weakness Gait Instability Kidney Transplant Recipient ([facility]) Type 1 Diabetes Mellitus On Insulin Therapy ([facility]) 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) ([facility]) Diarrhea Encounter for Monitoring Tacrolimus Therapy Immunosuppressive Management Encounter Following Kidney Transplant ([facility]) Nephrolithiasis PAST MEDICAL HISTORY Diagnosis Date Acute diastolic (congestive) heart failure ([facility]) Bronchitis Chronic kidney failure, stage 4 (severe) ([facility]) 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 ([facility]) 12/16/2018 Depression Detached retina DM type 2, goal HbA1c < 7% ([facility]) Erectile dysfunction, unspecified erectile dysfunction type ESRD (end stage renal disease) ([facility]) GERD (gastroesophageal reflux disease) Hyperlipidemia Kidney replaced by transplant ([facility]) Kidney stones LUANNE (obstructive sleep apnea) PNA [...] fill hx; pt denies having therapist/psychiatrist [facility]; [facility] reports last fill was January 2024; no fill on file with [facility]; pt denies getting meds from anywhere else buPROPion XL (WELLBUTRIN XL) 300 mg 24 hr tablet Take 1 tablet by mouth once daily. Reports taking QAM but not on external fill hx Last script was from [facility] on 07/13/24; no fill hx per [facility] or [facility] pharmacy carvedilol (COREG) 12.5 mg tablet Take 1 tablet by mouth two times a day. Taking BID Cholestyramine, Bulk, powd Take one(1) scoop dissolved in two(2) to six(6) ounces(oz) of fluid by mouth daily. Reports taking 1 scoop 3x/day when he eats to help with diarrhea; not on external fill hx Updated med list; last filled at [facility] in June 2024; script at [facility] was never filled ergocalciferol 50,000 unit capsule (VITAMIN D2, DRISDOL) Take 1 capsule by mouth one time a week. Reports taking every Saturday; not on external fill hx Last script was from [facility] on 07/22/23; not filled in past couple [...] on external fill hx; reports needing refill [facility] last filled in June 2024; no recent fills from [facility] pharmacy glucagon 3 mg/actuation nasal spray (BAQSIMI) Use 1 [place] in the nose as needed for low [...] as high priority alerting them of current dosingto see if they need to change dose [...] unable to review TIR due to CGM applicator sprayer malfunction; no issues with lows; pt follows with Tlai Durand; pt reports having T2DM though diagnosis code states T1DM; pt taking much higher insulin doses than recorded thoughno lows; pt recalls largest PPG spike occurs [...] as prescribed PharmD will reach out to burlesque dancer to confirm diabetes dx (T1 vs T2) Requested that patient have Dexcom applicator sprayer charged and present for future visits Indicated for statin; CKD and s/p transplant put him at high risk of ASCVD; appears atorva was laststopped in 2021 for mildly elevated LFTs; recent LFTs WNL. Will discuss at future visit. 2. Medication management - ICD9: V58.69, ICD10: Z79.899 Reviewed all medications, indications, dosing, frequency, administration with patient. Medication list updated as described above. Medication nonadherence: Patient reports adherence with all meds but the following meds were NOT listed on external fill hx.I did confirm with pt that he only gets his meds filled at the [facility] the [facility], occasionally will get a med filled at [facility]. I called pharmacy and confirmed the following: Bupropion 75 and 300mg tabs - 75mg tab was last filled January 23, 2024; 300mg not filled since prior to 2021; [facility] doesn't have any scripts on file (were cancelled in 2023) Ergocalciferol - not filled since prior to 2021 Cholestyramine - last filled June 2024; at [facility], script is on file, was never picked up Gabapentin - last filled prior to 2021; [facility] last filled 06/12/2024, script Pantoprazole - reports it was prescribed in July but not filled Trulicity - 4.5mg pens; last fill was 09/22/24 x 3 boxes, no refills on file; [facility] doesn't have Trulicity on file Based on fill histories, it is likely that the patient is NOT consistently taking the above medications. Will inform PCP as FYI. I also advised pt to have all pill bottles present at f/up visit for [facility] medication review to better confirm what he [...] verbalized understanding of instructions. Verna Jensen PharmD, [facility] Primary Care Clinical Pharmacist Time spent: 60 mins documented in this encounterOur Lady Of [facility]06-19-2025 Telephone encounter Note * Telephone Encounter - Elizabeth Sweet - 02/25/2025 3:50 PM EDT Pt is due 05/06. Need qgenda schedule. [facility]06-19-2025 Miscellaneous Notes* Telephone Encounter - Elizabeth Sweet - 02/25/2025 3:50 PM EDT Pt is due 05/06. Need qgenda schedule. * Telephone Encounter - Xiang Deutsch RN - 02/25/2025 9:56 AM EDT Tube Exchange Appointment Request Form Person filling [...] this exchange be done in the region? [place] If the patient has an already existing exchange appointment can that one be cancelled? Yes Any other pertinent information needed for schedulers?transplant kidney documented in this encounterOur Lady Of [facility]cy Hospital06-19-2025 Telephone encounter Note * Telephone Encounter - Xiang Deutsch RN - 02/25/2025 9:56 AM EDT Tube Exchange Appointment Request Form Person filling [...] this exchange be done in the region? [place] If the patient has an already existing exchange appointment can that one be cancelled? Yes Any other pertinent information needed for schedulers?transplant kidney [facility]06-09-2025 Telephone encounter Note* Telephone Encounter - Verna Jensen RPh - 02/15/2025 9:51 AM EDT Called patient for scheduled phone appt but unable to reach after multiple attempts. LMOM for mobile phone. Unable to connect to home phone - maybe disconnected? Primary Care Pharmacy Rescheduling Outreach Call center, please contact patient and reschedule telephone visit for Diabetes management within ~4 week(s). (Visit length: 60 minutes) Thank you, Verna Jensen RPh 02/15/2025 9:51 AM [facility] Work Phone: 1(880) 651-796406-09-2025 Miscellaneous Notes* Telephone Encounter - Verna Jensen RPh - 02/15/2025 9:51 AM EDT Called patient for scheduled phone appt but unable to reach after multiple attempts. LMOM for mobile phone. Unable to connect to home phone - maybe disconnected? Primary Care Pharmacy Rescheduling Outreach Call center, please contact patient and reschedule telephone visit for Diabetes management within ~4 week(s). (Visit length: 60 minutes) Thank you, Verna Jensen RPh 02/15/2025 9:51 AM documented in this encounterOur Lady Of Mercy Hospital06-03-2025 Telephone encounter Note * Telephone Encounter - Kerry Oscar RN - 02/09/2025 4:13 PM EDT Pt excluded from TCM-transplant patient and homeless-see Dr. Gaston epic note 02/05/25. [facility]06-03-2025 Miscellaneous Notes* Telephone Encounter - Kerry Oscar RN - 02/09/2025 4:13 PM EDT Pt excluded from TCM-transplant patient and homeless-see Dr. Gaston epic note 02/05/25. documented in this encounterOur Lady Of Mercy Hospital06-02-2025 Telephone encounter Note * Telephone Encounter - Amanda Hayes LISW - 02/08/2025 2:02 PM EDT SW attempted to return pt's phone call. SW left pt a voicemail and will await return phone call. SARA Sahu-Yvette Transplant Photocopying Equipment Repairer [facility] Work Phone: [phone] Miscellaneous Notes* Telephone Encounter - Amanda Hayes LISW - 02/08/2025 2:02 PM EDT SW attempted to return pt's phone call. SW left pt a voicemail and will await return phone call. MATTHEW Sahu Transplant Photocopying Equipment Repairer documented in this encounterOur Lady Of Mercy Hospital06-01-2025 Discharge summary [facility] Medical Records Department [address] [place] [address] Emergency Department Summary 02/07/25 MR#: [id number] Acct: [id number] Name: ITALO BURGOS Rep #:[id number] : 1970 54 From: Toni Nelson DO [...] kidney and therefore was transferred up to [facility] where they remove the kidney stone and placed aurostomy tube. Patient notices that his bag is leaking and would like a new bag. He denies fevers or chills or sweats. He is otherwise doing well. His transplant was 5 years ago. [facility] Medical History Congestive heart failure (CHF) [...] catheterization (LHC) (~06/26/11) Atherosclerotic heart disease of [place] coronary artery without angina pectoris Essential hypertension [...] quadrant. The dressing is not saturated. Tubing appearsto be intact. Cannot visualize the source of [...] correct the problem. Patient advised to follow-up withhis urologist as the tubing is shorter than his original tubing. Patient comfortable with plan. [place] Discharge Plan Triage Chief [...] MD [Primary Care Provider] - Print Language: Cypriot Disposition Disposition: Home, Self Care What to do if you have Problems For any increased pain, shortness of breath, bleeding, nausea or vomiting, chestpain, or any unexpected problems, contact your Primary Care Provider. Call [facility] ([phone]) or report tothe closest Emergency Room. Call 911 if necessary. 02/07/25 1604 Cosigner Signature (if applicable): CC: Dr. Zaida Gaston MD ~ Signed [facility]06-01-2025 Discharge summary Author Toni Nelson [facility] Note Date/Time February 07, 2025 4:04p [facility] Medical Records Department [address] [facility] [place] [address] Emergency Department Summary 02/07/25 MR#: [id number] Acct: [id number] Name: ITALO BURGOS Rep #:[id number] : 1970 54 From: Toni Nelson DO [...] kidney and therefore was transferred up to [facility] where they remove the kidney stone and placed a urostomy tube. Patient notices that his bag is leaking and would like a new bag. He denies fevers or chills or sweats. He is otherwise doing well. His transplant was 5 years ago. [facility] Medical History Congestive heart failure (CHF) [...] catheterization (LHC) (~06/26/11) Atherosclerotic heart disease of [place] coronary artery without angina pectoris Essential hypertension [...] original tubing. Patient comfortable with plan. [place] Discharge Plan Triage Chief [...] MD [Primary Care Provider] - Print Language: Cypriot Disposition Disposition: Home, Self Care What to do if you have Problems For any increased pain, shortness of breath, bleeding, nausea or vomiting, chestpain, or any unexpected problems, contact your Primary Care Provider. Call [facility] ([phone]) or report to the closest Emergency Room. Call 911 if necessary. 02/07/25 1604 <Electronically signed by Toni Nelson DO> Cosigner Signature (if applicable): CC: Dr. Zaida Gaston MD ~ Signed [facility] Work Phone: 1(810) 951-737605-30-2025 NoteHNO ID: [id number] Author: ZAIDA GASTON MD Service: ? Author Type: Physician Type: Progress Notes Filed: 02/05/2025 15:00 Note Text: Reason for Visit Follow up STEPHANIE Kramer is a 54-year-old male with a history [...] new device. Italo is currently residing at [facility], a [facility] for homeless individuals, since September. He previously [...] - Follow-up appointment with Urology at the main campus scheduled for next with Dr. Maryjane Quinteros to discuss nephrostomy tube management. - Continue current nephrostomy tube care. 3. Type 1 diabetes mellitus (more content not included)...[facility]05-30-2025 History of Present illness Narrative* Zaida Gaston [...] new device. Italo is currently residing at [facility], a [facility] for homeless [facility], since September. He previously [...] - Follow-up appointment with Urology at the [facility] scheduled for next with Dr. Maryjane Quinteros to discuss nephrostomy tube management. - Continue current nephrostomy tube care. 3. Type 1 diabetes mellitus on insulin therapy (HCC) (E10.9) Hyperglycemia (R73.9) Blood glucose levels remain elevated, with a recent reading of 425 mg/dL. Patient is using a DexcomG7 CGM but reports not checking postprandial glucose levels. - Referred to pharmacy for diabetes management and education on CGM use. - Monitor blood glucose levels more frequently, including postprandial readings. 4. Moderate episode of recurrent major depressive disorder ([facility]) (F33.1) Patient expresses feelings of depression related [...] excuse any unintended typographical errors. Recording using RisparmioSuper software for draft documentation of the visit was discussed with the patient/authorized parts counter representative; all questions welcomed and answered. Patient/authorized parts counter representative agreed to proceed Zaida Gaston MD documented in this encounterOur Lady Of Mercy Hospital05-30-2025 Instructions* Patient Instructions* Zaida Gaston MD - 02/05/2025 11:40 AM EDT We discussed your kidney stones and nephrostomy tube: - You currently have a nephrostomy tube in place. You are changing it every 5 days and have not hadany issues managing it on your own. - You have a [facility] [facility] next to discuss the next steps, including whether the tube will be removed or kept in place. Dr. Maryjane Quinteros will see you at [facility]. - Please ensure you have transportation arranged [...] depression. This prescription has been sent to [facility]. - If you experience any side effects or feel the medication is not helping, please let me know so we can adjust your treatment. We discussed your living situation and overall well-being: - You are currently staying at [facility], a alf for homeless individuals. I encourage you to [...] Attend your urology appointment next at the [facility]. - Work with the pharmacist to improve your blood sugar control and learn how to use your continuousglucose monitor. - Continue taking your medications as prescribed, including the newly added Lexapro. - Complete your standing lab orders. - Reach out to me if you have any concerns or if your symptoms worsen. documented in this encounterOur [facility]05-30-[facility]25 Telephone encounter Note * Telephone Encounter [...] hours please call or and ask the extrusion line operator to page the interventional resident in diagnostic radiology emissions testing and repair technician. 5) To change or schedule an appointment [...] please call Interventional Radiology nurse triage line [phone], Saturday - Saturday 9 a.m. - 4 p.m. After hours please call and ask for Interventional Radiology Fellow emissions testing and repair technician, pager [phone]. In the event of acute symptoms report directly to local emergency department and notify the Department of Intervention Radiology after the fact. All questions and concerns were addressed. I spent 10 minutes on the above conversation with the patient. [facility]05-30-2025 Miscellaneous Notes* Telephone Encounter - Danni [...] hours please call or and ask the extrusion line operator to page the interventional resident in diagnostic radiology emissions testing and repair technician. 5) To change or schedule an appointment [...] please call Interventional Radiology nurse triage line [phone], Saturday - Saturday 9 a.m. - 4 p.m. After hours please call and ask for Interventional Radiology Fellow emissions testing and repair technician, pager [phone]. In the event of acute symptoms report directly to local emergency department and notify the Department of Intervention Radiology after the fact. All questions and concerns were addressed. I spent 10 minutes on the above conversation with the patient. documented in this encounterOur [facility] Of [facility]05-29-2025 Telephone encounter Note * Telephone Encounter - Azra Hogan - 02/04/2025 10:01 AM EDT Patient is an exclusion from post discharge call back program (transplant patient) [facility]05-29-2025 Miscellaneous Notes* Telephone Encounter - Azra Hogan - 02/04/2025 10:01 AM EDT Patient is an exclusion from post discharge call back program (transplant patient) documented in this encounterOur Lady Of Mercy Hospital05-28-2025 Telephone encounter Note * Telephone Encounter - Amanda Hayes LISW - 02/03/2025 2:12 PM EDT ADDY made another attempt to contact ([phone]) pt regarding the pt possibility of him being homeless. SW left a voicemail and will await return phone call. SARA Sahu-Yvette Transplant Photocopying Equipment Repairer [facility] Work Phone: [phone] Miscellaneous Notes* Telephone Encounter - Amanda Hayes LISW - 02/03/2025 2:12 PM EDT ADDY made another attempt to contact ([phone]) pt regarding the pt possibility of him being homeless. SW left a voicemail and will await return phone call. SARA Sahu-S Transplant Photocopying Equipment Repairer documented in this encounterOur Lady Of Mercy Hospital05-28-2025 Telephone encounter Note * Telephone Encounter - Danni Singh RN - 02/03/2025 11:34 AM EDT Interventional Radiology Follow Up Call Attempted to reach Italo today for follow up from their tube placement. Unable to reach them at this time. Message left with phone number to return the call. [facility]05-28-2025 Miscellaneous Notes* Telephone Encounter - Danni Singh RN - 02/03/2025 11:34 AM EDT Interventional Radiology Follow Up Call Attempted to reach Italo today for follow up from their tube placement. Unable to reach them at this time. Message left with phone number to return the call. documented in this encounterOur Lady Of Mercy Hospital05-27-2025 Telephone encounter Note * Telephone Encounter - Bon Concepcion RN - 02/02/2025 12:20 PM EDT Delfino Helm Anna, MD; Bon Concepcion RN I also called pt again as well and phone goes to VM but VM is full. I will sent a mychart to pt as well to contact the office for assistance with scheduling [facility]05-27-2025 Miscellaneous Notes* Telephone Encounter - Bon [...] February 02, 2025 ---- Neli Wesley MD [facility]; Bon Concepcion RN [facility]. This one we can add on for [...] MD Previous Messages ----- Message ----- From: Jordny Robb MD Sent: 01/28/2025 6:56 AM EDT To: Neli Wesley MD Subject: Kidney transplant with onstructig mid ureter* Hello Dr. Wesley, I requested an appointment with you to discuss antegrade stone management, Patient got his NT and Cr trending down now. Thank you oJrdyn * Telephone Encounter - Bon Concepcion RN - 01/29/2025 9:00 AM EDT [facility]; Bon Concepcion RN Left message on pt's VM to contact the office to confirm procedure date and set up consultation appt. documented in this encounterOur Lady Of Mercy Hospital05-27-2025 Telephone encounter Note * Telephone Encounter - Bon Concepcion RN - 02/02/2025 10:42 AM EDT Images from the original note were not included. Called patient to discuss scheduling surgery and consult with Dr. Wesley for kidney stone removal.No answer, Mailbox full. Mobile phone would not go through. Bon Concepcion RN February 02, 2025 ---- Neli Wesley MD [facility]; Bon Concepcion RN [facility]. This one we can add on for [...] Cr trending down now. Thank you Jordyn [facility]05-23-2025 Telephone encounter Note* Telephone Encounter - Bon Concepcion RN - 01/29/2025 9:00 AM EDT [facility], Neli Yee MD; Bon Concepcion RN Left message on pt's VM to contact the office to confirm procedure date and set up consultation appt. [facility]05-22-2025 NoteHNO ID: [id number] Author: DENISE FORD RPh Service: Pharmacy Author [...] the following changes: mycophenolate resumed on the [place] med rec. Denise Frod [facility] Pager: [phone] 01/28/2025 1:22 PM Medication List CHANGE how [...] spray Commonly known as: BAQSIMI Use 1 [place] in the nose as needed for low [...] mg/0.5 mL pen injector Commonly known as: CIERA losartan 25 mg tablet Commonly known as: COZAAR Where to Get Your Medications These medications were sent to [facility] [place] [address] [address] - [phone] [id number] [place] [address] carvedilol 12.5 mg tabletUniversity Hospitals [facility]aut [facility]05-22-2025 NoteHNO ID: [id number] Author: DANG MUNGUIA LSW Service: Care Management Author Type: Photocopying Equipment Repairer Type: Care Mgt Progress Note Filed: 01/28/2025 [...] Transportation Arrangements Transportation Arrangements: Uber/Lyft/Ela (paid by [facility]) Handoff Communication: Handoff to: Primary Care Physician Primary Care Physician Name/Phone: Zaida Gaston MD PCP - General, Internal Medicine Since 04/26/2016 via soc Per primary team, plan for dc today and dc orders in. Pt to return [facility]. CM confirmed with alf pt is able to return. No accepting HC as of now; primary team aware. TTR to transport. UPDATE 1:52pm: Per primary team, plan for dc tomorrow. SIGNATURE: CRISTHIAN Torres PATIENT NAME: Italo Burgos DATE: January 28, 2025 TIME: 12:54 [facility]05-22-2025 NoteHNO ID: [id number] Author: SHANA CANTOR MD Service: General Internal Medicine Author Type: Resident Type: Progress Notes Filed: 02/08/2025 12:43 Note Text: Attestation signed by Shana Cantor MD at 02/08/2025 12:43 PM (Updated) [facility] STAFF: TEACHING PHYSICIAN NOTE OF PERSONAL INVOLVEMENT [...] per nephrology SW/CM consult for meds and alf Sepsis ruled out Shana Cantor MD Pager #: [phone] Date of service: January 28, 2025 Time of service: 8:37 PM DEPARTMENT OF HOSPITAL MEDICINE PROGRESS NOTE SERVICE DATE: 01/28/2025 SERVICE TIME: 8:38 AM Hospital Medicine/Primary Attending: Shana Cantor,* NIGHT AND WEEKEND COVERAGE: [facility] COVERAGE: Days: [phone], please page Joel Chapin for patient issues. [...] and Airways Line Duration Peripheral 01/27/25 0500 [facility] Left Wrist 20 Gauge 1 day Peripheral 01/27/25 0500 Left Forearm 20 Gauge 1 day Drain Duration Surgically Inserted Drain 01/27/25 0847 [facility] Nephrostomy Right Lower Quadrant Abdomen <1 [...] sliding scale, and ongoing (more content not included)...[facility] 01-28-2025 NoteHNO ID: [id number] Author: ALTAF DE JESUS MD Service: Interventional [...] care of nephrostomy tube are located at: [email or web address] A patient education video for care of a nephrostomy tube is available on [employer]. Please use this link: [email or web address] Recommendations For Nephrostomy Tube Care: Leave tube [...] medical care of this patient. Please call [phone] if we can be of immediate assistance. For concerns between 4:30PM-7:00AM contact the on-call Interventional Radiology fellow/resident, pager [phone]. SIGNATURE: Altaf De Jesus MD PATIENT NAME: Italo Burgos DATE: January 28, 2025 TIME: 8:31 AM PAGER/CONTACT #: [phone] Hospitals Conneaut Medical Center05-21-2025 NoteHNO ID: [id number] Author: EDWIGE SORENSEN RN Service: Care Management Author Type: Registered Nurse Type: Care Mgt Initial Assessment Filed: 01/27/2025 11:54 Note Text: CARE MANAGEMENT: ASSESSMENT AND DISCHARGE PLAN SERVICE DATE: January 27, 2025 SERVICE TIME: 9:50 AM PCP: Zaida Gaston MD Primary Contact: Extended Emergency Contact Information Primary Emergency Contact: [place] [address] [facility] Mobile Relation: Other Admission Status: Inpatient Insurance Provider: [facility] DUAL COMPLETE PPO SNP Discharge Planning requested by: Per Department Practice Potential Transition Plans To Be Determined Advance Directives Current Advance Directive: None Current Living Arrangements and Support Lives with: Alone ([facility]) Type of Residence: ([facility]) Support: How do you manage to accomplish the following: Independent: Ambulation, Bathe/Shower, Dress, Meals/Meal Prep, Going to the bathroom, Medication Management Current Services/Equipment DME: Rollator Walker Discharge Planning Patient Goal(s): General wellness Cook of Choice Explained: Cook of Choice Given: No Reason Not Given: [...] this time possible SNF/ECF vs return to alf Met with patient at bedside and introduced myself and the role of Upper Cutter Machine. Cm will follow medical course and plan discharge accordingly. SIGNATURE: Edwige Sorensen RN PATIENT NAME: Italo Burgos DATE: January 27, 2025 TIME: 9:50 [facility]05-21-2025 NoteHNO ID: [id number] Author: RAY PINA MD Service: Critical Care Author Type: Physician Type: Progress Notes Filed: 01/27/2025 10:35 Note Text: MICU PROGRESS NOTE Please page MICU Jimenez for any concerns at [phone] Admission Date: 01/27/2025 Hospital Day # 0 [...] predniSONE, 5 mg, DAILY sulfamethoxazole-trimethoprim, 1 tablet, -WE- pantoprazole DR, 20 mg, DAILY tacrolimus IR, [...] insulin regular ceFAZolin, Last Rate: 2 g (01/27/25 0815) PHYSICAL EXAM PERFORMED: VITAL SIGNS (last 24hrs [...] Date 01/26/25 07 - 01/27/25 0659(Not Admitted) 01/27/25699 - 01/28/25 0659 Shift 0971-9877 8086-4274 4501-9452 24 Hour Total 2462-1987 5856-0276 4314-5599 24 Hour Total INTAKE PO 0 0 [...] and Airways Line Duration Peripheral 01/27/25 0500 [facility] Left Wrist 20 Gauge <1 day Peripheral 01/27/25 0500 Left Forearm 20 Gauge <1 day Drain Duration Indwelling Urinary Catheter External Facility Wilhelm -- days Surgically Inserted Drain 01/27/25 0847 [facility] Nephrostomy Right Lower Quadrant Abdomen <1 day DIAGNOSTIC TESTS: CBC: Recent Labs 01/27/25 05 WBC 9.72 HB 11.9* HCT 33.5* PLT 167 MCV 86.8 RDWCV 11.6 BMP: Recent Labs 01/27/25 05 GLUC 145* NA 126* K 4.8 CHLOR 94* CO2 16* ANION 16* BUN 83* CREAT 9.90* CHEM: Recent Labs 01/27/25548 ALB 2.6* TPROT 5.0* CA 8.1* MG 1.8 P 5.5* HEPATIC: Recent Labs 01/27/25548 ALKPHOS 100 ALT 11 AST 13* TBILI 0.5 CARDIAC: No results for input(s): CKTEST, CKMB, CKMBP, TROPT, PBNP in the last 168 hours. COAG: Recent Labs 01/27/25548 APTT 27.0 INR 1.0 UA: No results [...] of MICU admission Barriers (more content not included)...[facility]05-20-2025 Radiology Diagnostic study note [facility] Imaging Services [address], [place] [address] Chest PA and Lateral MR#: [id number] Acct: [id number] Name: ITALO BURGOS Rep #: [id number] : 1970 M 54 From: Gallito Jack MD PCP: Dr. Zaida Gaston MD Status: REG E R Study:Chest PA and Lateral Date of Exam: 01/26/25 Exam# [id number] Ordering Dr: Yony Solis DO PROCEDURE: CHEST PA AND LATERAL 01/26/2025 REASON FOR EXAM: COUGH TECHNIQUE: Frontal and lateral views of the chest. COMPARISON: None. FINDINGS: Hardware: None. Heart: Heart size is mildly enlarged. Mediastinum: The mediastinal contour is unremarkable. Lungs: The lungs are clear. Bones: The bones are unremarkable. RAD/Chest PA and Lateral IMPRESSION: NO ACUTE FINDINGS. Reading Location: [place] [address] CC: Dr. Zaida Gaston MD; Dr. Yony Solis DO ~ Dispersion Mixer: Signed [facility]05-20-2025 Radiology Diagnostic study note [facility] Imaging Services [address], [place] [id number] Abdomen/Pelvis without Cont MR#: [id number] Acct: [id number] Name: ITALO BURGOS Rep #: [id number] : 1970 M 54 From: Gallito Jack MD PCP: Dr. Zaida Gaston MD Status: REG E R Study:Abdomen/Pelvis without Cont Date of Exa m: 01/26/25 Exam# [id number] Ordering Dr: Le,Yony DO PROCEDURE: ABDOMEN/PELVIS WITHOUT CONT 01/26/2025 REASON [...] surrounding inflammation. Adrenals: Normal. Kidneys: Severely atrophic [place]western [place] kidneys. Right pelvic transplanted kidney transplanted right kidney ureter 10 mm calculus with severe upstream hydroureteronephrosis. Transplant kidney perinephric stranding which may represent back pressure. Bladder: Markedly concentrically thickened wall. Reproductive Organs: Unremarkable Bowel: Appendix: Lymph nodes: Vasculature: Peritoneum / Retroperitoneum: Mild atherosclerosis. Small volume ascites. Bones: CT/Abdomen/Pelvis without Cont IMPRESSION: 1. Transplanted right kidney obstructing ureteral calculus with wrljxnig-vz-igkecg upstream hydroureteronephrosis. 2. Severely thickened urinary bladder wall suspicious for cystitis. 3. Severely atrophic [place]western [place] kidneys. 4. Anasarca. 5. Small volume ascites. OVERALL FINAL ASSESSMENT: . LI-RADS is not meant to be used in patients <18 years or patients with cirrhosisdue to congenital hepatic fibrosis or due to vascular disorders, because these patients have a lower chance of developing HCC. Reading Location: [id number] CC: Dr. Zaida Gaston MD; Dr. Yony Solis DO ~ Dispersion Mixer: Signed [facility]04-30-2025 Telephone encounter Note* Telephone Encounter - Deep Hanson LPN - 01/06/2025 3:31 PM EDT Called and left message for patient to call office back for results. Deep Hanson LPN January 06, 2025 3:32 PM [facility]04-30-2025 Miscellaneous Notes* Telephone Encounter - Deep Hanson LPN - 01/06/2025 3:31 PM EDT Called and left message for patient to call office back for results. Deep HansonDIANNE January 06, 2025 3:32 PM * Telephone Encounter - 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 APRN.CNP - 01/06/2025 1:39 PM EDT Patient needs to reschedule missed appointment to review labs. Also check to see if he has rescheduled with his burlesque dancer as his Hgba1c is greater then 10 so diabetes is very uncontrolled at this time. Thank you 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 APRN.CNP documented in this encounterOur Lady Of Mercy Hospital04-30-2025 Telephone encounter Note * Telephone Encounter - 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 APRN.CNP - 01/06/2025 1:39 PM EDT Patient needs to reschedule missed appointment to review labs. Also check to see if he has rescheduled with his burlesque dancer as his Hgba1c is greater then 10 so diabetes is very uncontrolled at this time. Thank you 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 APRN.CNP [facility]04-23-2025 NoteHNO ID: [id number] Author: DELIA KAUFMAN APRN.CNP Service: ? Author [...] accidents of his bowel at the homeless alf and has to be seen to be [...] over a year ago. Needs to call [facility] to schedule. REVIEW OF SYSTEMS See HPI PAST MEDICAL HISTORY Diagnosis Date Acute diastolic (congestive) heart failure (HCC) Bronchitis Chronic kidney failure, stage 4 (severe) ([facility]) 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 ([facility]) 12/16/2018 Depression Detached retina DM type 2, goal HbA1c < 7% ([facility]) Erectile dysfunction, unspecified erectile dysfunction type ESRD (end stage renal disease) ([facility]) GERD (gastroesophageal reflux disease) Hyperlipidemia Kidney replaced by transplant Kidney stones LUANNE (obstructive sleep apnea) PNA (pneumonia) Proliferative retinopathy 02/10/2019 PTE (post-transplant erythrocytosis) Snoring Unspecified essential hypertension Vitamin D deficiency Vitamin D deficiency PAST SURGICAL HISTORY Procedure Laterality Date AMPUTATION TOE,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 08/08/2018 Done at [facility] by Satish Phan MD CHOLECYSTECTOMY 1998 Cholecystectomy COLONOSCOPY 12/04/2018 COLONOSCOPY SCREENING 04/01/2024 CYSTO W/COMPLEX REMOVAL STONE AND STENT 1999 EGD 12/04/2018 EGD W/O [facility] SPEC VARICIES INJ 04/01/2024 PAST SURGICAL HISTORY OF Left 2013 AND [...] cap in pm Blood-Glucose Meter,Continuous (DEXCOM G6 HEAVY MACHINERY OPERATOR) misc 1 Each continuous. Blood-Glucose Sensor (DEXCOM [...] lispro protamine-lispro units (more content not included)... [facility]01-20-2025 NoteHNO ID: [id number] Author: ZAIDA GASTON MD Service: ? Author [...] Diagnosis Date Acute diastolic (congestive) heart failure ([facility]) Bronchitis Chronic kidney failure, stage 4 (severe) ([facility]) 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 ([facility]) 12/16/2018 Depression Detached retina DM type 2, goal HbA1c < 7% ([facility]) Erectile dysfunction, unspecified erectile dysfunction type ESRD (end stage renal disease) ([facility]) GERD (gastroesophageal reflux disease) Hyperlipidemia Kidney replaced by transplant Kidney stones LUANNE (obstructive sleep apnea) PNA (pneumonia) Proliferative retinopathy 02/10/2019 PTE (post-transplant erythrocytosis) Snoring Unspecified essential hypertension Vitamin D deficiency Vitamin D deficiency PAST SURGICAL HISTORY Procedure Laterality Date AMPUTATION TOE,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 08/08/2018 Done at [facility] by Satish Phan MD CHOLECYSTECTOMY 1998 Cholecystectomy COLONOSCOPY 12/04/2018 COLONOSCOPY SCREENING 04/01/2024 CYSTO W/COMPLEX REMOVAL STONE AND STENT 1999 EGD 12/04/2018 EGD W/O [facility] SPEC VARICIES INJ 04/01/2024 PAST [...] ergocalciferol 50,000 unit capsu (more content not included)...[facility]01-20-2025 History of Present illness Narrative* Zaida Gaston [...] Diagnosis Date Acute diastolic (congestive) heart failure ([facility]) Bronchitis Chronic kidney failure, stage 4 (severe) ([facility]) 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 ([facility]) 12/16/2018 Depression Detached retina DM type 2, goal HbA1c < 7% ([facility]) Erectile dysfunction, unspecified erectile dysfunction type ESRD (end stage renal disease) ([facility]) GERD (gastroesophageal reflux disease) Hyperlipidemia Kidney replaced by transplant Kidney stones LUANNE (obstructive sleep apnea) PNA (pneumonia) Proliferative retinopathy 02/10/2019 PTE (post-transplant erythrocytosis) Snoring Unspecified essential hypertension Vitamin D deficiency Vitamin D deficiency PAST SURGICAL HISTORY Procedure Laterality Date AMPUTATION TOE,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 08/08/2018 Done at [facility] by Satish Phan MD CHOLECYSTECTOMY 1998 Cholecystectomy COLONOSCOPY 12/04/2018 COLONOSCOPY SCREENING 04/01/2024 CYSTO W/COMPLEX REMOVAL STONE & STENT 1999 EGD 12/04/2018 EGD W/O [facility] SPEC VARICIES INJ 04/01/2024 PAST [...] mg chewable tablet Blood-Glucose Meter,Continuous (DEXCOM G6 HEAVY MACHINERY OPERATOR) misc Blood-Glucose Sensor (DEXCOM G6 SENSOR) glnen Blood-Glucose Transmitter (DEXCOM G6 TRANSMITTER) glenn Cholestyramine, Bulk, powd Insulin Syringe-Needle U-100 1 mL 29 gauge x 1/2 Insulin Lula, Disposable, (BD ULTRA-FINE SANDRA PEN NEEDLE) 32 [...] RELEASE Zaida Gaston MD documented in this encounterOur Lady Of Mercy Hospital01-07-2025 NoteHNO ID: [id number] Author: MATTY LEWIS MA Service: ? Author Type: Label Press Operator Type: Progress Notes Filed: 09/15/2024 10:11 Note [...] or unnecessary to reach patient: Left message [employer] message sent Navigation Signature: Matty Lewis MA September 15, 2024 10:09 [facility]01-07-2025 History of Present illness Narrative* Matty [...] or unnecessary to reach patient: Left message [employer] message sent Navigation Signature: Matty Lewis MA [...] or unnecessary to reach patient: Left message [employer] message sent Navigation Signature: Matty Lewis MA September 08, 2024 1:38 PM documented in this encounterOur Lady Of Mercy Hospital12-31-2024 NoteHNO ID: [id number] Author: MATTY LEWIS MA Service: ? Author Type: Label Press Operator Type: Progress Notes Filed: 09/15/2024 10:11 Note [...] or unnecessary to reach patient: Left message [employer] message sent Navigation Signature: Matty Lewis MA September 08, 2024 1:38 [facility]12-31-2024 NotePatient Outreach (NETNAV) ITALO BURGOS ([id number]) 1970 M Date Time Provider Department 09/08/24 MATTY LEWIS NETNAV During your visit today, we recorded the [...] or unnecessary to reach patient: Left message [employer] message sent Navigation Signature: Matty Lewis MA [...] or unnecessary to reach patient: Left message [employer] message sent Navigation Signature: Matty Lewis MA September 15, 2024 10:09 AM Allergies As of Date: 09/08/2024 (No Known Allergies) Date Reviewed: 06/18/2024 Reviewed by: Deep Hanson LPN - Fully Assessed Reason for Visit: Population Health Navigation Outreach [3910] Cmt: [facility] WORKBERAH MEI PCSA Visit Diagnosis:Type 1 diabetes mellitus on insulin therapy (HCC) [E10.9] Order(s):ALBUMIN/CREATININE RATIO, URINE [SQUACR] Order #: [id number] FUTURE Prescriptions as of 09/15/2024 - pantoprazole [...] in pm - Blood-Glucose Meter,Continuous (DEXCOM G6 HEAVY MACHINERY OPERATOR) misc 1 Each continuous. - Blood-Glucose Sensor [...] Units subcutaneously daily at bedtime. - Insulin Lula, Disposable, (BD ULTRA-FINE SANDRA PEN NEEDLE) 32 gauge x /32 Use as directed four times daily - [...] 3 mg/actuation nasal spray (BAQSIMI) Use 1 [place] in the nose as needed for low blood sugar. May repeat after 15 minutes using a new device if there is no response. - aspirin 81 mg chewable tablet chew and swallow 1 tablet by mouth once daily. - fluticasone (FLONASE) 50 mcg/actuation nasal spray Use 2 Sprays in each nostril once daily. - CPAP Initi (more content not included)...[facility]11-22-2024 Telephone encounter Note* Telephone Encounter - Monik Chinchilla MA - 07/31/2024 3:17 PM EST Faxed. [facility]11-22-2024 Miscellaneous Notes* Telephone Encounter - Monik [...] 31, 2024 1:14 PM documented in this encounterOur [facility] Of [facility]11-22-2024 Telephone encounter Note * Telephone Encounter [...] Murphy RN July 31, 2024 1:14 PM [facility]11-19-2024 Evaluation note* Diagnosis Onset Date Resolution Status Admit Date Diabetic nephropathy chronic [facility] 2023 10:37am Diabetic retinopathy [facility] 2023 10:37am Hypertension chronic July 10:37am Overweight chronic July 28, 2024 10:37am Type 2 diabetes mellitus wit h diabetic polyneuropathy chronic July 28, 2024 10:37am [facility] Work Phone: 1(822) 429-212411-04-2024 Miscellaneous Notes* Telephone Encounter - Torrie Moore [...] 13, 2024 3:19 PM documented in this encounterOur [facility] Of [facility]cy [facility]11-04-2024 Telephone encounter Note * Telephone Encounter [...] Moore LPN July 13, 2024 3:19 PM [facility]11-04-2024 NoteHNO ID: [id number] Author: MATTY LEWIS MA Service: ? Author Type: Label Press Operator Type: Progress Notes Filed: 07/13/2024 13:24 Note [...] Matty Lewis MA July 13, 2024 9:39 [facility]11-04-2024 History of Present illness Narrative* Matty [...] 13, 2024 9:39 AM documented in this encounterOur Lady Of Mercy Hospital11-04-2024 NotePatient Outreach (NETNAV) LORETTAITALO ([id number]) 1970 M Date Time Provider Department 07/13/24 MATTY LEWIS During your visit today, we recorded the following information about you: Matty Lewis MA 07/13/2024 1:24 PM Signed POPULATION HEALTH NAVIGATION OUTREACH Action/ FLIP APPOINTMENT to medicare wellness exam 09-21-24 [...] Known Allergies) Date Reviewed: 06/18/2024 Reviewed by: Deep Hanson LPN - Fully Assessed Reason for Visit: Population Health Navigation Outreach [3910] Cmt: [facility] LUCIA MEI PCSA Prescriptions as of 07/13/2024 - tacrolimus IR (PROGRAF) 1 mg capsule Take 2 caps in am and 1 cap in pm - Blood-Glucose Meter,Continuous (DEXCOM G6 HEAVY MACHINERY OPERATOR) misc 1 Each continuous. - Blood-Glucose Sensor [...] Units subcutaneously daily at bedtime. - Insulin Lula, Disposable, (BD ULTRA-FINE SANDRA PEN NEEDLE) 32 [...] 3 mg/actuation nasal spray (BAQSIMI) Use 1 [place] in the nose as needed for low [...] [R31.29] 09/30/2014 Diabetic polyneu (more content not included)...[facility] 06-23-2024 Telephone encounter Note* Telephone Encounter - Amanda Hayes LISW - 06/23/2024 10:57 AM EDT SW returned pt's phone call. Pt stated his Envarsus went to $92 a month. Pt reports he still has [facility] Dual (Medicare & Medicaid) and he is not sure why his copay went up. SW informed pt that they can apply for assistance for envarsus via [employer]. SW emailed pt his portion of the [employer] application, as well as a 30 day copay card. SW will work on her portion of the application. Pt denies any other questions/concerns at this time. Pt has SW contact information for any future questions/concerns. SARA Sahu-S Transplant Photocopying Equipment Repairer [facility] Work Phone: [phone] Miscellaneous Notes* Telephone Encounter - Amanda Hayes LISW - 06/23/2024 10:57 AM EDT SW returned pt's phone call. Pt stated his Envarsus went to $92 a month. Pt reports he still has [facility] Dual (Medicare & Medicaid) and he is not sure why his copay went up. SW informed pt that they can apply for assistance for envarsus via [employer]. SW emailed pt his portion of the envarsus application, as well as a 30 day copay card. SW will work on her portion of the application. Pt denies any other questions/concerns at this time. Pt has SW contact information for any future questions/concerns. MATTHEW Sahu Transplant Photocopying Equipment Repairer documented in this encounterOur Lady Of Mercy Hospital10-10-2024 NoteHNO ID: [id number] Author: ZAIAD GASTON MD Service: ? Author Type: Physician Type: Progress Notes Filed: 06/18/2024 13:00 Note Text: Reason for Visit Patient presents with: Recheck [...] Diagnosis Date Acute diastolic (congestive) heart failure ([facility]) Bronchitis Chronic kidney failure, stage 4 (severe) ([facility]) 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 ([facility]) 12/16/2018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 nose as needed for low [...] - Instructed patient to contact office or swjjd-bp-pocm after-hours promptly should condition worsen or any new symptoms appear. - [facility] and after hours crisis line Prescription instructions reviewed with patient as applicable. Potential red flag symptoms discussed with the patient. Reviewed appropriate action plan to take if red flag symptoms occur. Patient agreeable to treatment plan 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 APRN.CNP documented in this encounterOur Lady Of Mercy Hospital06-19-2024 Telephone encounter Note * Telephone Encounter - Kirti Rehman RN - 02/26/2024 2:40 PM EDT Octavia with [employer] [facility] calling and requesting patient's most recent office visit note to be faxed to them for processing of patient's Dexcom CGM. Faxed as requested to [phone]. Thank you. [facility]06-19-2024 Miscellaneous Notes* Telephone Encounter - Kirti Rehman RN - 02/26/2024 2:40 PM EDT Octavia with [facility] calling and requesting patient's most recent office visit note to be faxed to them for processing of patient's Dexcom CGM. Faxed as requested to [phone]. Thank you. documented in this encounterOur Lady Of Mercy Hospital05-15-2024 History of Present illness Narrative* 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 APRN.DOUGH MAKER - 01/22/2024 4:43 PM EDT CC: Patient [...] Diagnosis Date Acute diastolic (congestive) heart failure ([facility]) Bronchitis Chronic kidney failure, stage 4 (severe) ([facility]) 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 ([facility]) 12/16/2018 Depression Detached retina DM type 2, goal HbA1c < 7% ([facility]) Erectile dysfunction, unspecified erectile dysfunction type ESRD (end stage renal disease) ([facility]) GERD (gastroesophageal reflux disease) Hyperlipidemia Kidney replaced by transplant Kidney stones LUANNE (obstructive sleep apnea) PNA (pneumonia) Proliferative retinopathy 02/10/2019 PTE (post-transplant erythrocytosis) Snoring Unspecified essential hypertension Vitamin D deficiency Vitamin D deficiency PAST SURGICAL HISTORY Procedure Laterality Date AMPUTATION TOE,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 08/08/2018 Done at [facility] by Satish Phan MD CHOLECYSTECTOMY 1998 Cholecystectomy [...] 1 Each as needed. For Intercavernal Injections wkltqkugir-vfrobxocgwii-rviqmuhuzlz 30 MG - 1 MG - 10 [...] units for every 40 >180 mg/dL) Insulin Lula, Disposable, (BD ULTRA-FINE SANDRA PEN NEEDLE) 32 [...] 3 mg/actuation nasal spray (BAQSIMI) Use 1 [place] in the nose as needed for low [...] 2) due on 09/18/2024 Covid-19 Vaccine(4 - 2022- season) due on 09/18/2024 Pneumococcal Vaccine(3 of [...] fluoxetine - Reviewed concept of neurochemical imbalance [facility] depression/anxiety, treatment options and benefits of counseling in combination with medication. Also reviewed benefits of sleep hygeine, diet and exercise - Follow-up in 6 weeks or sooner as needed - Instructed patient to contact office or heyyc-wd-ouao after-hours promptly should condition worsen or any new symptoms appear. - [facility] and after hours crisis line 3. [...] plan. 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 APRN.CNP documented in this encounterOur Lady Of Mercy Hospital05-08-2024 Telephone encounter Note * Telephone Encounter - Kathrine Logan LPN - 01/15/2024 10:58 AM EDT Rec'd covermymeds PA for pantoprazole. Requested electronic PA and response is this is covered. No PA is needed. Pharmacy notified. [facility]05-08-2024 Miscellaneous Notes* Telephone Encounter - Kathrine Logan LPN - 01/15/2024 10:58 AM EDT Rec'd covermymeds PA for pantoprazole. Requested electronic PA and response is this is covered. No PA is needed. Pharmacy notified. documented in this encounterOur Lady Of Mercy Hospital05-08-2024 History of Present illness Narrative* Rosi [...] Provider. Tammie Gomez RN documented in this encounterOur Lady Of Mercy Hospital05-06-2024 History of Present illness Narrative* Chyna Conroy PA-C - 01/13/2024 1:30 PM EDT [facility] [place] Transplant Follow up Portions of this note [...] Having slow graft function 03/25/22: Admitted to [facility] 2/2 osteomyelitis s/p amputation of fifth [...] x 2. Not compliant with labs/biopsies. Local Stock Room Manager: Dr. Montiel Lab Frequency: Monthly Home BP: [...] 1 Each as needed. For Intercavernal Injections zmkknmhvyo-cvuqcxvzvuyo-cwnjmvzuvbn 30 MG - 1 MG - 10 [...] units for every 40 >180 mg/dL) Insulin Lula, Disposable, (BD ULTRA-FINE SANDRA PEN NEEDLE) 32 [...] 3 mg/actuation nasal spray (BAQSIMI) Use 1 [place] in the nose as needed for low [...] complexity. Chyna Conroy PA-C documented in this encounterOur Lady Of Mercy Hospital04-05-2024 Miscellaneous Notes* Telephone Encounter - Steve [...] you. Steve Mota MA. documented in this encounterOur Lady Of Mercy Hospital03-20-2024 Miscellaneous Notes* Telephone Encounter - Conchis [...] advise. Conchis Sheets RN documented in this encounterOur Lady Of Mercy Hospital03-19-2024 History of Present illness Narrative* Xiang [...] does note [place]. Denies any fevers/chills, body aches, or any other systemic symptoms. States that when he has half a sandwich from [employer] and it passes right through him. 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 MEDICATIONS Insulin Syringe-Needle U-100 1 mL 29 gauge x 1/2 1 Each as needed. For Intercavernal Injections alciiabfld-bfmmvmsdemix-qlkibhmpkun 30 MG - 1 MG - 10 [...] units for every 40 >180 mg/dL) Insulin Lula, Disposable, (BD ULTRA-FINE SANDRA PEN NEEDLE) 32 [...] 3 mg/actuation nasal spray (BAQSIMI) Use 1 [place] in the nose as needed for low [...] plan. Xiang Perez PA-C documented in this encounterOur Lady Of Mercy Hospital03-18-2024 Miscellaneous Notes* Telephone Encounter - Silvano Munoz RN - 11/25/2023 8:22 AM EDT [...] 13. : N/A Protocols used: Diarrhea on Wvfmxrujyaf-THXCV-KJ documented in this encounterOur Lady Of Mercy Hospital02-21-2024 Miscellaneous Notes* Telephone Encounter - Monik Chinchilla Ma - 10/30/2023 7:04 PM EST Form received and faxed as requested. * Telephone Encounter - Monik Chinchilla Ma - 10/30/2023 4:28 PM EST No forms received. * Telephone Encounter - Josseline Murphy RN - 10/30/2023 3:34 PM EST Mary from [facility]-DME provider (Dexcom G-6) calls and asking if provider received fax message requesting chart notes that was sent on 10/24. Asking if chart notes can be faxed to [phone]. Called and left message for patient to call back and speak with a triage nurse regarding this and if this was patient requested. Josseline Murphy RN documented in this encounterOur Lady Of Mercy Hospital02-20-2024 Miscellaneous Notes* Telephone Encounter - Chyna Mak RN - 10/29/2023 1:11 PM EST JORDY 08/20/2023 NOV none scheduled Patient requesting refills as follows: Requested Prescriptions Pending Prescriptions Disp Refills Insulin Syringe-Needle U-100 1 mL 29 gauge x 1/2 20 Each 3 Si Each as needed. For Intercavernal Injections Please review and advise. Chyna Mak RN documented in this encounterOur Lady Of Mercy Hospital02-05-2024 Miscellaneous Notes* Telephone Encounter - Justine [...] primary care: 12/18/2023 Please advise. Thank you. Jusitne Boyle RN. documented in this encounterOur Lady Of Mercy Hospital02-02-2024 Miscellaneous Notes* Telephone Encounter - Josseline Murphy RN - 10/11/2023 11:10 AM EST Patient calls and states that prescription was cancelled. Patient uses [facility] and not [facility]. Patient has been identified by name and [...] you. Josseline Murphy RN. documented in this encounterOur Lady Of Mercy Hospital01-10-2024 History of Present illness Narrative* 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 APRN.DOUGH MAKER - 09/18/2023 2:48 PM EST CC: Patient [...] a year ago but has appointment with [facility] at the end of this month. HTN: [...] Bronchitis Chronic kidney failure, stage 4 (severe) ([facility]) 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 ([facility]) 12/16/2018 Depression Detached retina DM type 2, goal HbA1c < 7% ([facility]) Erectile dysfunction, unspecified erectile dysfunction type ESRD (end stage renal disease) ([facility]) GERD (gastroesophageal reflux disease) Hyperlipidemia Kidney replaced by transplant Kidney stones LUANNE (obstructive sleep apnea) PNA (pneumonia) Proliferative retinopathy 02/10/2019 PTE (post-transplant erythrocytosis) Snoring Unspecified essential hypertension Vitamin D deficiency Vitamin D deficiency PAST SURGICAL HISTORY Procedure Laterality Date AMPUTATION TOE,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 MEDICATIONS sulfamethoxazole-trimethoprim (BACTRIM) 400-80 mg per tablet Take 1 tablet by mouth every Saturday, Saturday, and Saturday. yskqyqqqpt-doygkjwoknbz-okoyvxmfozv 15 MG - 0.5 MG - 5 [...] 2 tablets by mouth once daily. Insulin Lula, Disposable, (BD ULTRA-FINE SANDRA PEN NEEDLE) 32 [...] 3 mg/actuation nasal spray (BAQSIMI) Use 1 [place] in the nose as needed for low [...] Dilated Retinal Exam due on 02/09/2023 Covid-19 Vaccine() due on 05/10/2023 Colorectal Cancer Screening due [...] - Instructed patient to contact office or zzqkr-dq-auow after-hours promptly should condition worsen or any new symptoms appear. - [facility] and after hours crisis line 5. LUANNE (obstructive sleep apnea) - ICD9: 327.23, ICD10: G47.33 Does not use cpap at this time, reports being asymptomatic Prescription instructions reviewed with patient as applicable. Potential red flag symptoms discussed with the patient. Reviewed appropriate action plan to take if red flag symptoms occur. Patient agreeable to treatment plan. 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 APRN.CNP documented in this encounterOur Lady Of Mercy Hospital12-21-2023 Miscellaneous Notes* Telephone Encounter - Monik Chinchilla Ma - 08/29/2023 7:14 AM EST Form faxed. * Telephone Encounter - 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 APRN.CNP - 08/29/2023 6:50 AM EST Form filled out. Please fax as requested. Thank you 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 APRN.CNP * Telephone Encounter - Xiang Wilson MA - 08/27/2023 9:21 AM EST Fax received from [facility] requesting renewal for CGM and supplies. Form partially completed and placed on Delia's desk for review. Once signed, please fax to [phone]. Xiang Wilson MA documented in this encounterOur Lady Of Mercy Hospital12-14-2023 Miscellaneous Notes* Telephone Encounter - Dona Kaiser RN - 08/22/2023 2:45 PM EST Called pt. Pt. States he used 20 units Rates it 5 out of 10 Not firm enough for penetration Lasted about 30 minutes Denies pain. documented in this encounterOur Lady Of Mercy Hospital12-12-2023 History of Present illness Narrative* Oscar Mas PA-C - 08/20/2023 4:17 PM EST Images from the original note were not included. [facility] [place] UROLOGY INTRACAVERNOUS TEACHING APPOINTMENT Patient : Italo Burgos 1970 52 year old Diagnosis: (N52.9) Impotence of organic origin (primary encounter diagnosis) Medications: Current Outpatient Medications Medication Sig mwidjppwwz-qjmorzsarnyx-mkgwlggswva 15 MG - 0.5 MG - 5 [...] 2 tablets by mouth once daily. Insulin Lula, Disposable, (BD ULTRA-FINE SANDRA PEN NEEDLE) 32 [...] 3 mg/actuation nasal spray (BAQSIMI) Use 1 [place] in the nose as needed for low [...] POINTS: Survival Skills: History of Drug and terminal operations supervisor effects reviewed with patient. yes Discussed with [...] assessment as noted. Electronically Signed KECIA Larson, ROMULO CHRISTIANSON In Department: UROLOGY documented in this encounterOur Lady Of Mercy Hospital12-05-2023 History of Present illness Narrative* Oscar Mas PA-C - 08/13/2023 4:44 PM EST Images from the original note were not included. [facility] ESTABLISHED PATIENT CLINIC NOTE [...] teaching appointment I will send Rxs to [facility] and He will call to have it [...] 2 tablets by mouth once daily. Insulin Lula, Disposable, (BD ULTRA-FINE SANDRA PEN NEEDLE) 32 [...] 3 mg/actuation nasal spray (BAQSIMI) Use 1 [place] in the nose as needed for low [...] Diagnosis Date Acute diastolic (congestive) heart failure ([facility]) Bronchitis Chronic kidney failure, stage 4 (severe) ([facility]) 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 ([facility]) 12/16/2018 Depression Detached retina DM type 2, goal HbA1c < 7% ([facility]) Erectile dysfunction, unspecified erectile dysfunction type ESRD (end stage renal disease) ([facility]) GERD (gastroesophageal reflux disease) Hyperlipidemia Kidney replaced by transplant Kidney stones LUANNE (obstructive sleep apnea) PNA (pneumonia) Proliferative retinopathy 02/10/2019 PTE (post-transplant erythrocytosis) Snoring Unspecified essential hypertension Vitamin D deficiency Vitamin D deficiency PAST SURGICAL HISTORY: PAST SURGICAL HISTORY Procedure Laterality Date AMPUTATION TOE,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 08/08/2018 Done at [facility] by Satish Phan MD CHOLECYSTECTOMY 1998 Cholecystectomy [...] with Friends and Family: Patient refused Attends [employer] Services: Patient refused Active Member of Clubs [...] Negative Negative Ketones, Urine Negative Negative Specific [place], Ur 1.024 1.005 - 1.030 Hemoglobin/Blood,Ur Negative [...] 4.00 k/uL Monocytes % 7.7 % Abs [place]ove 0.55 <0.87 k/uL Eosinophils % 0.6 % [...] min, > Rx sent for Bi-Mix to [facility] he will call and arrange payment and shipping > MUST bring medication for teaching appointment KECIA Larson, [place], ROMULO documented in this encounterOur Lady Of Mercy Hospital12-05-2023 Instructions* Patient Instructions* Oscar Mas PA-C - 08/13/2023 4:41 PM EST > Schedule patient for Penile Injection Teaching appt for 6 min slot Once made I need to know so I can order Medication to be sent at the time prior to his appointment KECIA Larson, MEGHAN, ROMULO documented in this encounterOur Lady Of Mercy Hospital11-11-2023 Miscellaneous Notes* Telephone Encounter - Lashae [...] advise. Lashae Perry RN documented in this encounterOur Lady Of Mercy Hospital11-06-2023 History of Present illness Narrative* Alana Kent APRN.DOUGH MAKER - 07/15/2023 2:18 PM EST [facility] [place] Transplant Follow up Portions of this note [...] Having slow graft function 03/25/22: Admitted to [facility] 2/2 osteomyelitis s/p amputation of fifth toe. Wound culture +necrotizing fascitis. Discharged with [facility] vanc and ampicillin until end april. Follow up scheduled with wound clinic, ID and Endocrinology Protocol Bx results: 3-6 mos:07/13/21: Limited sample by light microscopy without diagnostic evidence of acute Rejection. Tubular atrophy and interstitial fibrosis, mild. Arteriolar hyalinosis, focal. 1 yr: Local Stock Room Manager: Dr. Montiel Lab Frequency: Monthly Home BP: [...] units for every 40 >180 mg/dL) Insulin Lula, Disposable, (BD ULTRA-FINE SANDRA PEN NEEDLE) 32 [...] 3 mg/actuation nasal spray (BAQSIMI) Use 1 [place] in the nose as needed for low [...] decision making of high complexity. Alana Kent APRN.DOUGH MAKER documented in this encounterOur Lady Of [facility] Miscellaneous Notes* Telephone Encounter - Shakira [...] you. Shakira Bianchi. * Telephone Encounter - Bethany Caren Valles - 07/01/2023 1:45 PM EDT Patient has been identified by name and date of : Yes Requested Prescriptions Pending Prescriptions Disp Refills pantoprazole DR (PROTONIX) 20 mg tablet 90 tablet 3 Sig: Take 1 tablet by mouth once daily. RX INSTRUCTIONS: Per patient, he is now using [facility]. Please send a new prescription. Patient aware RX will be sent to pharmacy. No need to notify patient. Caren Valles documented in this encounterOur Lady Of Mercy Hospital09-12-2023 History of Present illness Narrative* Xiang [...] 35 mg/dL Total Cholesterol: 189 mg/dL Local optical worker, 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 PAST MEDICAL HISTORY Diagnosis Date Acute diastolic (congestive) heart failure (HCC) Bronchitis Chronic kidney failure, stage 4 (severe) (HCC) 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 ([facility]) 12/16/2018 Depression Detached retina DM type 2, goal HbA1c < 7% (HCC) ESRD (end stage renal disease) (HCC) GERD (gastroesophageal reflux disease) Hyperlipidemia Kidney stones LUANNE (obstructive sleep apnea) PNA (pneumonia) Proliferative retinopathy 02/10/2019 Snoring Unspecified essential hypertension Vitamin D deficiency PAST SURGICAL HISTORY Procedure Laterality Date AMPUTATION TOE,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 Insulin Lula, Disposable, (BD ULTRA-FINE SANDRA PEN NEEDLE) 32 [...] 3 mg/actuation nasal spray (BAQSIMI) Use 1 [place] in the nose as needed for low [...] plan. Xiang Perez PA-C documented in this encounterOur Lady Of Mercy Hospital08-02-2023 Miscellaneous Notes* Result Encounter Note - Olivia Maxwell APRN.DOUGH MAKER - 04/10/2023 1:11 PM EDT Xiang, patient has an appointment 05/28 with you, ultrasound looks stable, no DVT, no other issues. Wanted to pass along to you for review with the appointment. documented in this encounterOur Lady Of Mercy Hospital07-26-2023 Miscellaneous Notes* Telephone Encounter - Svetlana Manjarrez MD - 04/03/2023 2:07 PM EDT Will get RX with more refills at follow up appointment with Xiang in May * Telephone Encounter - Allyssa Camacho - 04/03/2023 12:11 PM EDT Pharmacy verified in [facility] Patient has been identified by name and [...] Please advise. Allyssa Valles documented in this encounterOur Lady Of Mercy Hospital07-06-2023 History of Present illness Narrative* Lg Link MD - 03/14/2023 6:51 AM EDT patient at outside ED, low blood glucose, SCr elevated 1.9 mg/dl, similar to previous, will repeat labs, allogen and cell free dna, may need bx, keep clinic f/u 04/10/23 Lg Link MD documented in this encounterOur Lady Of Mercy Hospital07-06-2023 Discharge summary Author Loi Saldana [facility] March 14, 2023 7:08am Note Date/Time March 13, 2023 10:40 pm [facility] Medical Records Department [address] [place] [address] Emergency Department Summary 03/13/23 MR#: [id number] Acct: [id number] Name: ITALO BURGOS Rep #:[id number] : 1970 52 From: Loi Les CLAIRE PCP: Dr. Zaida Gaston MD Status:REG E [...] than some generalized weakness. He states his optical worker is Dr. Montiel. He states that he been eatingand drinking normally. Making normal urine and stool and has not had any issues. He states he ate a hotdog macaroni and cheese for dinner. [facility] Medical History Acute hypoxemic respiratory failure Acute on chronic diastolic CHF (congestive heart failure) Acute respiratory failure with hypoxia ILDA (acute kidney injury) Anasarca associated with disorder of kidney Anemia of chronic renal failure, stage 4 (severe) Anxiety and depression Atherosclerotic heart disease of [place] coronary artery without angina pectoris Autonomic neuropathy [...] she follows with the transplant team at [facility] typically on an outpatient basis. She did [...] have some special lab work done at [facility] on Saturday that has to be done there because it specialized in the only place where they can do it. After this he can get his blood work drawn at any [facility] facility for the next 4 weeks. He [...] % (Auto) 67.1 Lymph % (Auto) 22.5 Gove % (Auto) 9.0 Eos % (Auto) 0.8 [...] Clarity Clear Urine pH 5.0 Ur Specific [place] 1.020 Urine Protein 30 H Urine Glucose [...] (Auto) Neut % (Auto) Lymph % (Auto) Gove % (Auto) Eos % (Auto) Baso % [...] Color Urine Clarity Urine pH Ur Specific [place] Urine Protein Urine Glucose (UA) Urine Ketones [...] (Auto) Neut % (Auto) Lymph % (Auto) Gove % (Auto) Eos % (Auto) Baso % [...] Color Urine Clarity Urine pH Ur Specific [place] Urine Protein Urine Glucose (UA) Urine Ketones [...] (Auto) Neut % (Auto) Lymph % (Auto) Gove % (Auto) Eos % (Auto) Baso % [...] Color Urine Clarity Urine pH Ur Specific [place] Urine Protein Urine Glucose (UA) Urine Ketones [...] Signed: Karl Wilson MD at 23:05 EDT , Discharge Plan Triage Chief Complaint: Hypoglycemia [...] your Primary Care Provider. Call [facility] ([phone]) or report to the closest Emergency Room. Call 911 if necessary. 03/14/23 0708 <Electronically signed by Loi Saldana DO> Cosigner Signature (if applicable): CC: Dr. Zaida Gaston MD ~ Signed [facility] Work Phone: 1(870) 312-588806-19-2023 History of Present illness Narrative* Zaida Gaston [...] SHUNT FOR DIALYSIS Right 08/08/2018 Done at [facility] by Satish Phan MD CHOLECYSTECTOMY 1998 Cholecystectomy [...] (VITAMIN D3) 1,000 unit tab tablet Insulin Lula, Disposable, (BD ULTRA-FINE SANDRA PEN NEEDLE) 32 gauge x /32 sulfamethoxazole-trimethoprim (BACTRIM) 400-80 mg per tablet losartan [...] times. Zaida Gaston MD documented in this encounterOur Lady Of Mercy Hospital05-10-2023 Miscellaneous Notes* Telephone Encounter - Danni Barnes RN - 01/16/2023 5:07 PM EDT Called patient to confirm renal bx. Patient unable to make appointment d/t no ride. Asked us to reschedule. Message sent to [facility]. Danni Barnes RN documented in this encounterOur Lady Of Mercy Hospital04-26-2023 Miscellaneous Notes* Telephone Encounter - Juvencio Haji RN - 01/02/2023 2:33 PM EDT Call placed to patient RE repeat labwork. Informed that creatinine is down to 2.16 from 2.8, but glucose is 392. Confirmed labwork is fasting. Encouraged patient to continue hydrating well and to contact local Emissions Testing And Repair Technician for management. States saw provider last month. During encounter, blood glucose reading 192. A1c from 10/13/22 at 8.6. Patient recently recovered from diabetic foot wound requiring wound clinic. All questions answered. Informed patient will follow up results of AlloSure and DSA. Patient stated understanding. All questions answered. Juvencio Haji RN documented in this encounterOur Lady Of Mercy Hospital04-21-2023 History of Present illness Narrative* Chelsea Ryan MD - 12/28/2022 10:07 AM EDT [facility] [place] [facility] Follow up Portions of this note [...] Having slow graft function 03/25/22: Admitted to [facility] 2/2 osteomyelitis s/p amputation of fifth toe. Wound culture +necrotizing fascitis. Discharged with [facility]AT vanc and ampicillin until end of April. Follow up scheduled with wound clinic, ID and Endocrinology Protocol Bx results: 3-6 mos:07/13/21: Limited sample by light microscopy without diagnostic evidence of acute Rejection. Tubular atrophy and interstitial fibrosis, mild. Arteriolar hyalinosis, focal. 1 yr: Local Stock Room Manager: Dr. Montiel Lab Frequency: Monthly Home BP: 130-140/70-80 New Complaints: 1 year, 9 month visit No compliants Just got back form trip to [place] 3 weeks ago (out of town x [...] tablet by mouth q 24 HR. Insulin Lula, Disposable, (BD ULTRA-FINE SANDRA PEN NEEDLE) 32 gauge x Use as directed four times daily sulfamethoxazole-trimethoprim [...] 3 mg/actuation nasal spray (BAQSIMI) Use 1 [place] in the nose as needed for low [...] for left toe amputation at [facility] Working for income: No; Karnofsky Index Scale: 80 - Normal activity with effort: some signs or symptoms of disease. Newly Diabetic: No Rejection: No Malignancies: No Conchis Sheets, software test technician Staff Note: December 31, 2022 4:29 PM I have seen the patient and confirmed the historical findings as outlined above. Pt returns for routine follow up visit, last office follow up on 09/24/22 In the interim, treated by local hr analyst in [facility] for diabetic foot infection- completed abx [...] complexity. Chelsea Ryan MD documented in this encounterOur Lady Of Mercy Hospital03-17-2023 History of Present illness Narrative* Zaida [...] SHUNT FOR DIALYSIS Right 08/08/2018 Done at [facility] by Satish Phan MD CHOLECYSTECTOMY 1998 Cholecystectomy [...] (VITAMIN D3) 1,000 unit tab tablet Insulin Lula, Disposable, (BD ULTRA-FINE SANDRA PEN NEEDLE) 32 [...] <130/80 Zaida Gaston MD documented in this encounterOur Lady Of Mercy Hospital03-16-2023 History of Present illness Narrative* Verna Jensen, [facility] - 11/22/2022 1:00 PM EDT Images from the original note were not included. Primary Care Pharmacy Visit CC (Reason for Consult): Diabetes Goal: A1c < 7% Collaborating Provider: Dr. Gaston Last Provider Visit: 08/25/22 Italo Burgos is a 51 year old male presenting for follow up visit in person. Patient consents [facility] collaborative practice agreement. Patient is presenting today [...] On 09/24 patient saw endo pharmacist at [facility] [place]. No med changes made since minimal SMBGs to review but patient encouraged to discuss GLP1 with burlesque dancer. At last PharmD visit on 10/04, no med changes made since patient recently started working with endo. Subjective: HPI: Said he saw burlesque dancer recently. He reports his sugars were looking [...] not present Adherence: denies missed doses Pharmacy: [facility]; [facility] is alternative Rx coverage: [facility] Medicare + Medicaid Affordability: no issues Diabetes supplies: One Touch [employer] System: pill boxes ACTIVE PROBLEM LIST Uncontrolled Type 2 Diabetes Mellitus With Complication, With Long-Term Current Use of Insulin Hypertension Goal Bp (Blood Pressure) < 140/90 Other Hyperlipidemia Ed (Erectile Dysfunction) Lower Urinary Tract Symptoms (Luts) History of Kidney Stones Microscopic Hematuria Diabetic Polyneuropathy Associated With Type 2 Diabetes Mellitus ([facility]) Nausea Vomiting Moderate Episode of Recurrent Major Depressive Disorder ([facility]) Right Leg Weakness Gait Instability Ckd (Chronic Kidney Disease) Requiring Chronic Dialysis ([facility]) Kidney Transplant Recipient Type 1 Diabetes Mellitus On Insulin Therapy ([facility]) PAST MEDICAL HISTORY Diagnosis Date Acute diastolic (congestive) heart failure ([facility]) Bronchitis Chronic kidney failure, stage 4 (severe) ([facility]) Depression Detached retina DM type 2, goal HbA1c < 7% ([facility]) ESRD (end stage renal disease) ([facility]) GERD (gastroesophageal reflux disease) Hyperlipidemia Kidney stones [...] (BLOOD GLUCOSE TEST) test strip One Touch [employer] preferred - Kit - Dx E11.8 Insulin Dependent, Test blood sugar three times a day Blood-Glucose Meter monitoring kit Glucose Meter of Choice, One Touch [employer] preferred - Kit - Dx E11.8 Insulin [...] 3 mg/actuation nasal spray (BAQSIMI) Use 1 [place] in the nose as needed for low [...] units for every 40 >180 mg/dL) Insulin Lula, Disposable, (BD ULTRA-FINE SANDRA PEN NEEDLE) 32 gauge x Use as directed four times daily Lancets [...] management, patient is being actively managed by [facility] with frequent appointments so there is no need to see PharmD at this time since med adjustments are all per endo . We will not be scheduling further follow up with pharmacy at this time. They have been encouraged to follow up with you for ongoing management. As always, you may refer Italo Ordonez Burgos back to pharmacy for management in the future. Thank you for utilizing primary care pharmacy services. Follow-up Patient is scheduled to see PCP team on 11/23. Patient verbalized understanding of instructions. Verna Jensen PharmD, [facility] Primary Care Clinical Pharmacist The majority of the pharmacy visit (> 50%) was spent counseling and/or coordinating care for thepatient. interaction: face to face time was 26 minutes. documented in this encounterOur Lady Of Mercy Hospital03-16-2023 Instructions* Patient Instructions* Verna Jensen RPh - 11/22/2022 1:00 PM EDT Start reviewing nutrition labels. Try to limit your total number of carbohydrates per meal to 30-45grams (2-3 servings). Start learning which foods have a lot of carbs, protein, etc. This will help you to make better selections for food choices. documented in this encounterOur Lady Of Mercy Hospital02-27-[address] Nava [facility] November 05, 2022 2:22pm Note Date/Time November 05, 2022 2:22pm [facility] Medical Records Department [address] [place] [address] Progress Note - Infect Disease 11/05/22 1419 MR#: [id number] Acct: [id number] Name: ITALO BURGOS Rep #:[id number] : 1970 51 From: Satish cochran MD PCP: Dr. Zaida Gaston MD Status:ADM I N Location: NM3 HX313-2 Physical Exam Narrative Feeling well, wants to [...] Cosigner Signature (if applicable): CC: ~ Signed [facility] Work Phone: 1(259) 118-686202-27-[address] Santiago [facility] November 05, 2022 1:42pm Note Date/Time November 01, 2022 10:16am [facility] Medical Records Department [address] [place] [address] Emergency Department Summary 11/01/22 MR#: [id number] Acct: [id number] Name: ITALO BURGOS Rep #:[id number] : 1970 51 From: Chuy Santiago MD PCP: Dr. Zaida Gaston MD Status:ADM I N Location: NM3 YV884-9 HPI History of Present Illness Chief Complaint: Cellulitis Detail of Chief Complaint: Cellulitis and infected third and fourth left toe Informant: patient, spouse/S.O. and other (Dr. Levy, hr analyst) Onset/Context/Timing Onset: Days (Patient states he noted [...] significant cardiovascular disease. Per review of Dr. Vj Cabral's notes authored 01/19/2021 reveal history of coronary disease (mild), diastolic congestive heart failure, left ventricular hypertrophy, hypertension. He also has history of type II diabetic neuropathy. Patient presently chews. He does not smoke cigarettes. [facility] Medical History Acute hypoxemic respiratory failure Acute on chronic diastolic CHF (congestive heart failure) Acute respiratory failure with hypoxia ILDA (acute kidney injury) Anasarca associated with disorder of kidney Anemia of chronic renal failure, stage 4 (severe) Anxiety and depression Atherosclerotic heart disease of [place] coronary artery without angina pectoris Autonomic neuropathy [...] % (Auto) 67.5 Lymph % (Auto) 21.1 Gove % (Auto) 9.7 Eos % (Auto) 0.9 [...] (Auto) Neut % (Auto) Lymph % (Auto) Gove % (Auto) Eos % (Auto) Baso % [...] Tristan France MD at 10:30 EST , EKG Initial EKG: Attestation: I personally reviewed and interpreted this EKG as follows: Interpretation: Sinus Rhythm (Ventricular rate is 78. There is a left axis. MD intervals 196 ms. QRS durations 106 ms. [...] Plan is to OR), Discussing w/Patient &/or Family/Rn Progressive Care Unit, Discussing w/Consultants and Arranging Admission or Transfer Discharge Plan Dx/Rx/DC Orders Clinical Impression: Type 2 diabetes mellitus with left diabetic foot infection, Diabetic nephropathy, Chronic renal failure, stage 4 (severe), Anemia of chronic renal failure, stage 4 (severe), Atherosclerotic heart disease of [place] coronary artery without angina pectoris, Other specified peripheral vascular diseases, Type 2 diabetes mellitus with hyperglycemia, History of diastolic dysfunction, History of CAD (coronary artery disease) Disposition Disposition: Acute Care Hospital [facility] What to do if you have Problems For any increased pain, shortness of breath, bleeding, nausea or vomiting, chestpain, or any unexpected problems, contact your Primary Care Provider. Call [facility] ([phone]) or report to the closest Emergency Room. Call 911 if necessary. 11/05/22 1342 <Electronically signed by Chuy Santiago MD> Cosigner Signature (if applicable): CC: Dr. Zaida Gaston MD ~ Signed [facility] Work Phone: 1(397) 584-823402-26-[address] Jara [facility] November 04, 2022 3:37pm Note Date/Time November 04, 2022 2:46pm [facility] Medical Records Department [facility] [place] [address] Pharmacokinetic/Renal -Consult 11/04/22 1446 MR#: [id number] Acct: [id number] Name: ITALO BURGOS Rep #:[id number] : 1970 51 From: Oscar Jorge [facility] PCP: Dr. Zaida Gaston MD Status:ADM I N Y Location: [place] [address] Consult Pharmacy has been consulted to manage [...] Culture - Preliminary Staphylococcus epidermidis GNR lactose bonding and composite fabricator 11/01/22 14:13 Amputation - Toe Anaerobic Culture [...] 11/04/22 1446 <Electronically signed by Oscar Mckeon [facility]> Date _ Oscar Bee [facility] 11/04/22 1537 <Electronically signed by Shruti schaefer MD> Cosigner Signature (if applicable): Date Shruti Jara MD CC: ~ Signed [facility] Work Phone: [phone]) 114-522502-26-[address] Jara [facility] November 04, 2022 3:37pm Note Date/Time November 04, 2022 1:50pm [facility] Medical Records Department [address] [place] [address] Progress Note 11/04/22 1346 MR#: [id number] Acct: [id number] Name: ITALO BURGOS Rep #:[id number] : 1970 51 From: Shruti Jara MD PCP: Dr. Zaida Gaston MD Status:ADM I N Location: [place] [address] Subjective Subjective Patient seen and examined. He had no complaints and had an uneventful night. Review of systems otherwise negative. He has remained hemodynamic stable. Objective Data Objective Data Vital Signs: Vital Signs Temp Pulse Resp BP Pulse Ox O2 Del Method O2 Flow Rate 98.5 F 90 16 146/79 H 98 Room Air 2 11/04/22 10:11/04/22 10:11/04/22 10:11/04/22 10:11/04/22 10:11/04/22 10:11/01/22 17:43 Oxygen Flow Rate (L/min) 2 [...] % (Auto) 61.4, Lymph % (Auto) 26.5, Gove % (Auto) 10.5 H, Eos % (Auto) [...] Culture - Preliminary Staphylococcus epidermidis GNR lactose bonding and composite fabricator 11/01/22 14:13 Amputation - Toe Anaerobic Culture [...] Total time spent seeing patient and examining [id number], review of chart, reviewing specialist notes, discussion of plan of care with patient and ancillary staff as well as documentation in EMR: 33 minutes. Charges/Coding Visit Charges Inpatient E&M: 01697 Subs Hosp L2 11/04/22 1537 <Electronically signed by Shruti Jara MD> Shruti Jara MD Cosigner Signature (if applicable): CC: ~ Signed [facility] Work Phone: 1(308) 312-506702-26-[address] Niño [facility] November 04, 2022 9:00am Note Date/Time November 04, 2022 9:00am [facility] Medical Records Department [address] [place] [address] Progress Note 11/04/22 0859 MR#: [id number] Acct: [id number] Name: ITALO BURGOS Rep #:[id number] : 1970 51 From: Gerhard Niño DPM PCP: Dr. Zaida Gaston MD Status:ADM I N Location: [place] [address]-1 Subjective Subjective Patient was seen this morning. [...] 71.4 H, Lymph % (Auto) 18.4 L, Gove % (Auto) 9.0, Eos % (Auto) 0.8, [...] % (Auto) 61.4, Lymph % (Auto) 26.5, Gove % (Auto) 10.5 H, Eos % (Auto) 0.8, Baso % (Auto) 0.5, Absolute Neuts (auto)3.8, Absolute Lymphs (auto) 1.64, Nucleated RBC % 0 Micro: Microbiology 11/01/22 14:13 Amputation - Toe Gram Stain - Final 11/01/22 14:13 Amputation - Toe Wound Culture - Preliminary Staphylococcus epidermidis GNR lactose bonding and composite fabricator 11/01/22 14:40 Incision/Surgical Site Gram Stain - [...] <Electronically signed by Gerhard Niño DPM> Gerhard Benavides Signature (if applicable): CC: ~ Signed [facility] Work Phone: 1(998) 351-596102-26-[address] Jara [facility] November 04, 2022 7:27am Note Date/Time November 03, 2022 1:31pm [facility] Medical Records Department [address] [place] [address] Progress Note - Hospitalist 11/03/22 1320 MR#: [id number] Acct: [id number] Name: ITALO BURGOS Rep #:[id number] : 1970 51 From: Shruti Jara MD PCP: Dr. Zaida Gaston MD Status:ADM I N Location: [place] [address] Reason for Visit Reason for Visit: Diagnoses [...] 71.4 H, Lymph % (Auto) 18.4 L, Gove % (Auto) 9.0, Eos % (Auto) 0.8, [...] Culture - Preliminary Staphylococcus species GNR lactose bonding and composite fabricator 11/01/22 14:40 Incision/Surgical Site Gram Stain - [...] Total time spent seeing patient and examining [id number], review of chart, reviewing specialist notes, discussion of plan of care with patient and ancillary staff as well as documentation in EMR: 35 minutes. Charges/Coding Visit Charges Inpatient E&M: 60004 Subs Hosp L2 11/04/2227 <Electronically signed by Shurti Jara MD> Cosigner Signature (if applicable): CC: ~ Signed [facility] Work Phone: 1(684) 674-501002-26-2023 Consult note Author Aj Costello [facility] November 04, 2022 12:41am Note Date/Time November 04, 2022 12:41am [facility] Medical Records Department [address] [place] [address] Pharmacokinetic/Renal -Consult 11/04/22 0040 MR#: [id number] Acct: [id number] Name: ITALO BURGOS Rep #:[id number] : 1970 51 From: Aj Fields od PCP: Dr. Zaida Gaston MD Status:ADM I N Y Location: [place] [address] Consult Pharmacy has been consulted to manage [...] Culture - Preliminary Staphylococcus species GNR lactose bonding and composite fabricator 11/01/22 14:13 Amputation - Toe Anaerobic Culture [...] on [date and time ordered]: 11/04 @ 9790 11/04/22 0041 <Electronically signed by Aj matthews > Date _ Aj Benavides Signature (if applicable): Date CC: ~ Signed [facility] Work Phone: 1(925) 118-220702-25-[address] Niño [facility] November 03, 2022 9:22am Note Date/Time November 03, 2022 8:56am [facility] Medical Records Department [address] [place] [address] Progress Note 11/03/22 0856 MR#: [id number] Acct: [id number] Name: ITALO BURGOS Rep #:[id number] : 1970 51 From: Gerhard Niño DPM PCP: Dr. Zaida Gaston MD Status:ADM I N Location: [address] Subjective Subjective Patient was seen this morning [...] Clarity Clear, Urine pH 6.0, Ur Specific [place] 1.030, Urine Protein Negative, Urine Glucose (UA) [...] Culture - Preliminary Staphylococcus species GNR lactose bonding and composite fabricator 11/01/22 14:40 Incision/Surgical Site Gram Stain - [...] Signature (if applicable): Date cc: ~* Signed [facility] Work Phone: 1(879) 349-499402-24-[address] [facility], 2022 4:56pm Note Date/Time November 01, 2022 11:04[facility] Medical Records Department [address] [place] [address] Progress Note - Hospitalist 11/01/22 1104 MR#: [id number] Acct: [id number] Name: BURGOSITALO FONG Mery Rep #:[id number] : 1970 51 From: Shruti Jara MD PCP: Dr. Zaida Gaston MD Status:ADM I N Location: [place] [address] Reason for Visit Reason for Visit: Diagnoses [...] a PMH as outlined who presents via e ED on 11/01/2022 with a complaitn of [...] otherwise negative Vitals in the ED were MD of 81, RR of 16 and oxygen [...] % (Auto) 67.5, Lymph % (Auto) 21.1, Gove% (Auto) 9.7, Eos % (Auto) 0.9, Baso [...] Total time spent seeing patient and examining [id number]-ts-dcwf, review of chart, reviewing specialist notes, discussion of plan of care with patient and ancillary staff as well as documentation in EMR: 45 minutes. Charges/Coding Visit Charges Inpatient E&M: 22623 Subs Hosp L3 11/02/22 0592 <Electronically signed by Shruti Jara MD> Cosigner Signature (if applicable): CC: ~ Signed [facility] Work Phone: 1(397) 434-459402-24-[address] Jara [facility] November 02, 2022 4:56pm Note Date/Time November 02, 2022 12:46pm [facility] Medical Records Department [address] [place] [address] Progress Note - Hospitalist 11/02/22 1245 MR#: [id number] Acct: [id number] Name: ITALO BURGOS Rep #:[id number] : 1970 51 From: Shruti Jara MD PCP: Dr. Zaida Gaston MD Status:ADM I N Location: [place] [address] Reason for Visit Reason for Visit: Diagnoses [...] Clarity Clear, Urine pH 6.0, Ur Specific [place] 1.030, Urine Protein Negative, Urine Glucose (UA) [...] 82.7 H, Lymph % (Auto) 9.3 L, Gove %(Auto) 7.5, Eos % (Auto) 0.0, Baso [...] Total time spent seeing patient and examining eewl-jf-mhbp, review of chart, reviewing specialist notes, discussion of plan of care with patient and ancillary staff as well as documentation in EMR: 40 minutes. Charges/Coding Visit Charges Inpatient E&M: 05202 Subs Hosp L2 11/02/22 1656 <Electronically signed by Shruti Jara MD> Cosigner Signature (if applicable): CC: ~ Signed [facility] Work Phone: 1(487) 991-125402-24-[address] Nava [facility] November 02, 2022 11:56am Note Date/Time November 02, 2022 11:56am [facility] Medical Records Department [address] [place] [address] Consultation - Infectious Dx 11/02/22 1149 MR#: [id number] Acct: [id number] Name: LORETTAITALO D Rep #:[id number] : 1970 51 From: Satish cochran MD PCP: Dr. Zaida Gaston MD Status:ADM I N Location: [place] [address] Assessment & Plan Assessment/Plan (1) Osteomyelitis of [...] performed and neg except as noted above. [facility] Medical History Acute hypoxemic respiratory failure Acute on chronic diastolic CHF (congestive heart failure) Acute respiratory failure with hypoxia ILDA (acute kidney injury) Anasarca associated with disorder of kidney Anemia of chronic renal failure, stage 4 (severe) Anxiety and depression Atherosclerotic heart disease of [place] coronary artery without angina pectoris Autonomic neuropathy [...] pen 44 unit subcut DAILY blood sugar 12/03/20 [History Last Taken 10/31/22] docusate sodium 100 [...] 82.7 H, Lymph % (Auto) 9.3 L, Gove %(Auto) 7.5, Eos % (Auto) 0.0, Baso [...] Signed: Tristan France MD at 15:14 EST Reading Location ID and State: [facility] / [place] , Service support , 11/02/22 1156 <Electronically signed by Satish Nava MD> Cosigner Signature (if applicable): CC: FAMILY RESOURCE MANAGEMENT PROFESSOR-Alberto Garrison; FAMILY RESOURCE MANAGEMENT PROFESSOR-Alberto Funes; AJ Josue; Delmy Billy; Dr. Amy Ureña MD; Dr. Zaida Gaston MD; Dr. William Hayes DO; Dr. Kendra MD; Dr. Awa Martínez MD; Dr. Satish Nava MD~ Signed [facility] Work Phone: 1([phone]) 206-766602-24-2023 Consult note Author Valentín Evans [facility] November 02, 2022 9:14am Note Date/Time November 02, 2022 9:12am [facility] Medical Records Department [address] [address] Pharmacokinetic/Renal -Consult 11/02/22 09 MR#: [id number] Acct: [id number] Name: ITALO BURGOS Rep #:[id number] : 1970 51 From: Valentín mora PCP: Dr. Zaida Gaston MD Status:ADM I N Y Location: [place] [address] Consult Pharmacy has been consulted to manage [...] scheduled maintenance doseof 1250mg IV q12h per [facility] dosing protocol. Will check a trough level before the4th dose of 1250mg tomorrow night. The patient's CrCl of 68.9ml/min was calculated using an adjusted body weight. Pharmacy Service will continue to monitor and adjust dosing as required. Follow-Up Labs: Trough Vancomycin Labs to be done on [date and time ordered]: 11/03/22 19:30 11/02/22 0914 <Electronically signed by Valentín Gee erg > Date _ Valentín Evans Cosigner Signature (if applicable): Date CC: ~ Signed [facility] Work Phone: 1(774) 758-218702-24-[address] Niño [facility] November 02, 2022 7:15am Note Date/Time November 02, 2022 6:55am [facility] Medical Records Department [address] [place] [address] Progress Note 11/02/2254 MR#: [id number] Acct: [id number] Name: ITALO BURGOS Rep #:[id number] : 1970 51 From: Gerhard Niño DPM PCP: Dr. Zaida Gaston MD Status:ADM I N Location: [place] [address] Subjective Subjective Patient was seen this morning for follow up on [facility]. Patient afebrile, WBC normal. Bld Cx with [...] % (Auto) 67.5, Lymph % (Auto) 21.1, Gove% (Auto) 9.7, Eos % (Auto) 0.9, Baso [...] 82.7 H, Lymph % (Auto) 9.3 L, Gove %(Auto) 7.5, Eos % (Auto) 0.0, Baso [...] Cosigner Signature (if applicable): CC: ~ Signed [facility] Work Phone: 1(686) 264-841502-24-[address] Smith [facility] November 02, 2022 6:29am Note Date/Time November 02, 2022 6:29am [facility] Medical Records Department [address] [place] [address] Progress Note - Hospitalist 11/02/22628 MR#: [id number] Acct: [id number] Name: ITALO BURGOS Rep #:[id number] : 1970 51 From: Isamar Smith MD PCP: Dr. Zaida Gaston MD Status:ADM I N Location: [place] [address] Hospitalist Note Bld Cx with GPC in clusters. Will start IV Vancomycin. 11/02/22628 <Electronically signed by Isamar Smith MD> Cosigner Signature (if applicable): CC: ~ Signed [facility] Work Phone: 1([phone]) 224-955802-23-2023 Procedure [facility] 11-01-2022 History and physical note Author Dr. Levy [facility] November 01, 2022 10:43am Note Date/Time November 01, 2022 10:42am [facility] Medical Records Department [address] [place] [address] History & Physical Exam 11/01/22 1041 MR#: [id number] Acct: [id number] Name: ITALO BURGOS Rep #:[id number] : 1970 51 From: Mayo Levy DPM PCP: Dr. Zaida Gaston MD Status:REG S DC Location: [place] [address] HPI - General General Date of Admission: [...] to transmetatarsal amputation today.? No other complaints. [facility] Medical History Acute hypoxemic respiratory failure Acute on chronic diastolic CHF (congestive heart failure) Acute respiratory failure with hypoxia ILDA (acute kidney injury) Anasarca associated with disorder of kidney Anemia of chronic renal failure, stage 4 (severe) Anxiety and depression Atherosclerotic heart disease of [place] coronary artery without angina pectoris Autonomic neuropathy [...] % (Auto) 67.5, Lymph % (Auto) 21.1, Gove% (Auto) 9.7, Eos % (Auto) 0.9, Baso [...] IRIS Levy; Dr. Zaida Gaston MD~ Signed [facility] Work Phone: [phone]) 978-122702-23-[address] Levy [facility] November 01, 2022 10:17am Note Date/Time November 01, 2022 10:16am [facility] Medical Records Department [address] [place] [address] Consultation 11/01/22 1007 MR#: [id number] Acct: [id number] Name: ITALO BURGOS Rep #:[id number] : 1970 51 From: Mayo Levy DPM [...] to transmetatarsal amputation today. No other complaints. [facility] Medical History (Updated 11/01/22 @ 10:11 by DIXIE CortésSilvano) Acute hypoxemic respiratory failure Acute on chronic diastolic CHF (congestive heart failure) Acute respiratory failure with hypoxia ILDA (acute kidney injury) Anasarca associated with disorder of kidney Anemia of chronic renal failure, stage 4 (severe) Anxiety and depression Atherosclerotic heart disease of [place] coronary artery without angina pectoris Autonomic neuropathy [...] applicable): CC: Dr. Zaida Gaston MD~ Signed [facility] Work Phone: [phone]) 465-407901-26-2023 History of Present illness Narrative* Verna Jensen, [facility] - 10/04/2022 1:00 PM EST Images from the original note were not included. Primary Care Pharmacy Visit CC (Reason for Consult): Diabetes Goal: A1c < 7% Collaborating Provider: Dr. Gaston Last Provider Visit: 08/25/22 Italo Burgos is a 51 year old male presenting for follow up visit in person. Patient consents [facility] practice agreement. Patient is presenting today for [...] On 09/24 patient saw endo pharmacist at [facility] [place]. No medchanges made since minimal SMBGs to review but patient encouraged to discuss GLP1 with burlesque dancer. Subjective: HPI: He really likes the Dexcom, [...] pickard, last appt was in August). States neeraj increased Lantus to 48units and mealtime insulin is 16 units with meals and 8 units with snack. He really liked the burlesque dancer, seeing again in October. Current DM Medications: [...] not present Adherence: denies missed doses Pharmacy: [facility]; Kiya is alternative Rx coverage: [facility] Medicare + Medicaid Affordability: no issues Diabetes supplies: [employer] System: pill boxes ACTIVE PROBLEM LIST Uncontrolled Type 2 Diabetes Mellitus With Complication, With Long-Term Current Use of Insulin Hypertension Goal Bp (Blood Pressure) < 140/90 Other Hyperlipidemia Ed (Erectile Dysfunction) Lower Urinary Tract Symptoms (Luts) History of Kidney Stones Microscopic Hematuria Diabetic Polyneuropathy Associated With Type 2 Diabetes Mellitus (Hcc) Nausea Vomiting Moderate Episode of Recurrent Major Depressive Disorder (Hcc) Right Leg Weakness Gait Instability Ckd (Chronic Kidney Disease) Requiring Chronic Dialysis ([facility]) Kidney Transplant Recipient Type 1 Diabetes Mellitus On Insulin Therapy ([facility]) PAST MEDICAL HISTORY Diagnosis Date Acute diastolic (congestive) heart failure ([facility]) Bronchitis Chronic kidney failure, stage 4 (severe) ([facility]) Depression Detached retina DM type 2, goal HbA1c < 7% ([facility]) ESRD (end stage renal disease) ([facility]) GERD (gastroesophageal reflux disease) Hyperlipidemia Kidney stones [...] sugar diagnostic (BLOOD GLUCOSE TEST) test strip [employer] preferred - Kit - Dx E11.8 Insulin [...] 3 mg/actuation nasal spray (BAQSIMI) Use 1 [place] in the nose as needed for low [...] SCALE (MAX 50 UNITS PER DAY) Insulin Lula, Disposable, (BD ULTRA-FINE SANDRA PEN NEEDLE) 32 [...] next month CONTINUE insulin as recommended by burlesque dancer Advised patient to discuss the following things [...] verbalized understanding of instructions. Verna Jensen PharmD, [facility] Primary Care Clinical Pharmacist The majority of the pharmacy visit (> 50%) was spent counseling and/or coordinating care for thepatient. interaction: face to face time was 30 minutes. documented in this encounterOur Lady Of Mercy Hospital01-26-2023 Instructions* Patient Instructions* Verna Jensen RPh - 10/04/2022 1:00 PM EST Consider whether or not you would be open to doing carb counting. Can discuss with burlesque dancer at upcoming appointment. Confirm with burlesque dancer if you have Type 1 vs Type 2 diabetes. Discuss with burlesque dancer his thoughts on starting a GLP1 receptor agonist. Bring Dexcom to your burlesque dancer appointment. documented in this encounterOur Lady Of Mercy Hospital01-19-2023 Progress note Author Dona Medina [facility] September 27, 2022 9:55am Note Date/Time September 27, 2022 8 :24am [facility] [address] [place] [address] Progress Note - Wound Care 09/27/22 0824 MR#: [id number] Acct: [id number] Name: ITALO BURGOS Rep #:[id number] : 1970 51 From: Dona adams DPM [...] Recorded Date Recorded By Document 09/13/22 07:59 [id number] 09/13/22 08:01 Document 09/20/22 08:07 [id number] 09/20/22 08:08 Document 09/27/22 08:03 CARLINE [id number] 09/27/22 08:04 09/13/22 09/20/22 09/27/22 07:59 08:07 08:03 - Today's Visit Information Type of service Follow-up Visit Follow-up Visit Follow-up Visit (Physician/DOUGH MAKER (Physician/DOUGH MAKER (Physician/DOUGH MAKER ) ) ) Arrival Mode Ambulatory, Ambulatory [...] Date Recorded By Document 09/13/22 07:59 CARLINE [id number] 09/13/22 08:01 JF Document 09/20/22 08:07 KR [id number] 09/20/22 08:08 KR Document 09/27/22 08:03 CARLINE [id number] 09/27/22 08:04 CARLINE 09/13/22 09/20/22 09/27/22 07:59 08:07 08:03 Wound [...] Date Recorded By Document 09/13/22 09:09 PL [id number] 09/13/22 09:11 PL Document 09/20/22 12:00 PL [id number] 09/20/22 12:00 PL 09/13/22 09/20/22 09:09 12:00 [...] Disc -Expiration Date 05/10/27 -Product Lot Number [id number] -Percent Used 100 -Bleeding Controlled with [...] Recorded Date Recorded By Document 09/13/22 08:51 MI [id number] 09/13/22 08:51 MI Document 09/20/22 09:32 [id number] 09/20/22 09:32 KR 09/13/22 09/20/22 08:51 09:32 [...] was encouraged to continue routine follow-ups with burlesque dancer sothat he may get his blood sugars [...] next visit he is to return to [facility]'s wet-to-dry dressings.? He voices understanding of that. [...] continued localized woundcare and close monitoring. Note: [employer]oop speech recognition plaster and stucco worker software was used to create portions of this document. Sound-alike and misspelled words, as well as other plaster and stucco worker errors may be contained in the documentation 09/27/22 0955 <Electronically signed by Dona Medina DPM> Cosigner Signature (if applicable): CC: ~ Signed [facility] Work Phone: 1(479) 149-760101-16-2023 History of Present illness Narrative* Felicita Salomonaacs, [facility] - 09/24/2022 10:58 AM EST Patient seen [...] by PCP for his diabetes. Goes to burlesque dancer in [place]. His had bariatric, down to 218lbs. Using [...] SMBG: Wearing dexcom, however unable to download applicator sprayer. Current glucose is 273. Last a1c was elevated A/P: No adjustments today as we have only 1 day of data and pt now has established care with local endo.Recommend to discuss w/ endo about using a glp-1 agonist. F/up: PRN. Diabetes Care Team Hospital Discharge Help Line: [phone] Felicita Cameron, PharmD, BCPS, BCACP BC-ADM, CDCES Endocrine Clinical Puller Through documented in this encounterOur Lady Of Mercy Hospital01-16-2023 Instructions* Patient Instructions* Felicita Cameron RPh - 09/24/2022 10:58 AM EST Talk to your burlesque dancer about starting a glp-1 agonist. Examples include semaglutide (Ozempic)or dulaglutide (Trulicity). This may allow you to reduce or even eventually stop your meal time insulin. documented in this encounterOur Lady Of Mercy Hospital01-16-2023 History of Present illness Narrative* Alana Kent, PATIRCIA.DOUGH MAKER - 09/24/2022 10:45 AM EST [facility] [place] Transplant Follow up Portions of this note [...] Having slow graft function 03/25/22: Admitted to [facility] 2/2 osteomyelitis s/p amputation of fifth toe. Wound culture +necrotizing fascitis. Discharged with COPAT vanc and ampicillin until end april. Follow up scheduled with wound clinic, ID and Endocrinology Protocol Bx results: 3-6 mos:07/13/21: Limited sample by light microscopy without diagnostic evidence of acute Rejection. Tubular atrophy and interstitial fibrosis, mild. Arteriolar hyalinosis, focal. 1 yr: Local Stock Room Manager: Dr. Montiel Lab Frequency: Monthly Home BP: [...] Inject 44 Units subcutaneously every morning. Insulin Lula, Disposable, (BD ULTRA-FINE SANDRA PEN NEEDLE) 32 [...] 3 mg/actuation nasal spray (BAQSIMI) Use 1 [place] in the nose as needed for low [...] Inject 44 Units subcutaneously every morning. Insulin Lula, Disposable, (BD ULTRA-FINE SANDRA PEN NEEDLE) 32 [...] 3 mg/actuation nasal spray (BAQSIMI) Use 1 [place] in the nose as needed for low [...] complexity. Alana Kent APRN.ANDRE documented in this encounterOur Lady Of Mercy Hospital01-12-2023 Progress note Author Dona Medina [facility] September 20, 2022 9:39am Note Date/Time September 20, 2022 9 :18am [facility] [address] [place] [address] Progress Note - Wound Care 09/20/2217 MR#: [id number] Acct: [id number] Name: ITALO BURGOS Rep #:[id number] : 1970 51 From: Dona adams DPM [...] Recorded Date Recorded By Document 09/13/22 07:59 [id number] 09/13/22 08:01 Document 09/20/22 08:07 JOE [id number] 09/20/22 08:08 JOE 09/13/22 09/20/22 07:59 08:07 - Today's Visit Information Type of service Follow-up Visit Follow-up Visit (Physician/DOUGH MAKER (Physician/DOUGH MAKER ) ) Arrival Mode Ambulatory, Ambulatory Walker [...] Date Recorded By Document 09/13/22 07:59 CARLINE [id number] 09/13/22 08:01 JF Document 09/20/22 08:07 KR [id number] 09/20/22 08:08 KR 09/13/22 09/20/22 07:59 08:07 [...] Date Recorded By Document 09/13/22 09:09 PL [id number] 09/13/22 09:11 PL 09/13/22 09:09 Wound Center [...] Disc -Expiration Date 05/10/27 -Product Lot Number [id number] -Percent Used 100 -Bleeding Controlled with [...] Date Recorded By Document 09/13/22 08:51 AK [id number] 09/13/22 08:51 AK 09/13/22 08:51 Wound Care Nurse 3 #10 LL [...] was encouraged to continue routine follow-ups with burlesque dancer sothat he may get his blood sugars [...] localized wound care and close monitoring. Note: Floop speech recognition plaster and stucco worker software was used to create portions of this document. Sound-alike and misspelled words, as well as other plaster and stucco worker errors may be contained in the documentation 09/20/22 0939 <Electronically signed by Dona Medina DPM> Cosigner Signature (if applicable): CC: ~ Signed [facility] Work Phone: 1(893) 696-806401-05-2023 Progress note Author Dona Medina [facility] September 13, 2022 9:22am Note Date/Time September 13, 2022 8: 25am [facility] [address] [place] [address] Progress Note - Wound Care 09/13/22 0823 MR#: [id number] Acct: [id number] Name: LORETTAITALO D Rep #:[id number] : 1970 51 From: Dona adams DPM [...] or yesterday.? Hewas recently evaluated by his burlesque dancer and has had improvement in lowering his [...] Date Recorded By Document 09/13/22 07:59 CARLINE [id number] 09/13/22 08:01 CARLINE 09/13/22 07:59 WC - Today's Visit Information Type of service Follow-up Visit (Physician/DOUGH MAKER ) Arrival Mode Ambulatory, Walker Patient Requires [...] Is Patient Pain Free? Yes - Nurse 1 - General Ulcer Measurement Start: 09/11/22 16:14 Freq: Status: Active Protocol: Activity Type Activity Date Activity User E-sign Co-sign Detail Recorded Client Recorded Date Recorded By Document 09/13/22 07:59 CARLINE [id number] 09/13/22 08:01 CARLINE 09/13/22 07:59 Wound Center [...] was encouraged to continue routine follow-ups with burlesque dancer sothat he may get his blood sugars [...] localized wound care and close monitoring. Note: Floop speech recognition plaster and stucco worker software was used to create portions of this document. Sound-alike and misspelled words, as well as other plaster and stucco worker errors may be contained in the documentation 09/13/22 0922 <Electronically signed by Dona Medina DPM> Cosigner Signature (if applicable): CC: ~ Signed [facility] Work Phone: 1(543) 383-296701-03-2023 Progress note Author Jennajeronimo Bedoya [facility] September 11, 2022 9:55am Note Date/Time September 11, 2022 8: 18am [facility] [address] [place] [address] Progress Note - Wound Care HBO 09/11/22 0817 MR#: [id number] Acct: [id number] Name: ITALO BURGOS Rep #:[id number] : 1970 51 From: Jenna cochran NP FAMILY RESOURCE MANAGEMENT PROFESSOR-C PCP: Dr. Zaida Gaston MD Status:PRE R [...] 0955 <Electronically signed by Jenna Bedoya NP FAMILY RESOURCE MANAGEMENT PROFESSOR-C> Cosigner Signature (if applicable): CC: ~ Signed [facility] Work Phone: 1(359) 175-998412-17-2022 History of Present illness Narrative* Zaida Gaston [...] SHUNT FOR DIALYSIS Right 08/08/2018 Done at [facility] by Satish Phan MD CHOLECYSTECTOMY 1998 Cholecystectomy COLONOSCOPY 12/04/2018 CYSTO W/COMPLEX REMOVAL STONE & STENT 1999 EGD 12/04/2018 PAST SURGICAL HISTORY OF Left 2013 & 2015 removal eye fluid with instillation oil FAMILY [...] U-100 INSULIN) 100 unit/mL (3 mL) Insulin Lula, Disposable, (BD ULTRA-FINE SANDRA PEN NEEDLE) 32 gauge x / insulin lispro (HUMALOG KWIKPEN INSULIN) 100 unit/mL [...] same Zaida Gaston MD documented in this encounterOur Lady Of Mercy Hospital12-15-2022 Miscellaneous Notes* Telephone Encounter - Verna Jensen RPh - 08/23/2022 4:25 PM EST Rachel submitted paperwork through [employer] to order the Dexcom G6 CGM system for patient. Applied through [employer]. Verna Jensen PharmD, [facility] Primary Care Clinical Pharmacist documented in this encounterOur Lady Of Mercy Hospital12-15-2022 History of Present illness Narrative* Verna [...] getting foot healed. Has appointment to see [place] [facility] on 09/06 to establish care. Current [...] are present Adherence: denies missed doses Pharmacy: [facility]; Kiya is alternative Rx coverage: [facility] Medicare + Medicaid Affordability: no issues Diabetes supplies: [employer] System: pill boxes ACTIVE PROBLEM LIST Uncontrolled Type 2 Diabetes Mellitus With Complication, With Long-Term Current Use of Insulin Hypertension Goal Bp (Blood Pressure) < 140/90 Other Hyperlipidemia Ed (Erectile Dysfunction) Lower Urinary Tract Symptoms (Luts) History of Kidney Stones Microscopic Hematuria Diabetic Polyneuropathy Associated With Type 2 Diabetes Mellitus ([facility]) Nausea Vomiting Moderate Episode of Recurrent Major Depressive Disorder ([facility]) Right Leg Weakness Gait Instability Ckd (Chronic Kidney Disease) Requiring Chronic Dialysis ([facility]) Kidney Transplant Recipient Type 1 Diabetes Mellitus On Insulin Therapy ([facility]) PAST MEDICAL HISTORY Diagnosis Date Acute diastolic (congestive) heart failure ([facility]) Bronchitis Chronic kidney failure, stage 4 (severe) ([facility]) Depression Detached retina DM type 2, goal HbA1c < 7% ([facility]) ESRD (end stage renal disease) ([facility]) GERD (gastroesophageal reflux disease) Hyperlipidemia Kidney stones [...] 3 mg/actuation nasal spray (BAQSIMI) Use 1 [place] in the nose as needed for low [...] DAY) Taking 15 units with meals Insulin Lula, Disposable, (BD ULTRA-FINE SANDRA PEN NEEDLE) 32 gauge x Use as directed four times daily supplies [...] Advised patient to discuss the following with burlesque dancer at upcoming appt: consider labwork todetermine if [...] 10/04/22. Patient verbalized understanding of instructions. Verna Jensen PharmD, [facility] Primary Care Clinical Pharmacist The majority of the pharmacy visit (> 50%) was spent counseling and/or coordinating care for thepatient. interaction: face to face time was 70 minutes. documented in this encounterOur Lady Of Mercy Hospital12-15-2022 Instructions* Patient Instructions* Verna Jensen [facility] - 08/23/2022 3:00 PM EST INCREASE Lantus [...] like Ozempic or Trulicity. documented in this [facility]12-15-2022 Miscellaneous Notes* Telephone Encounter - Zaida Gaston MD - 08/23/2022 8:09 AM EST Noted Regards, Zaida Gaston MD * Telephone Encounter - Josseline Murphy RN - 08/20/2022 2:04 PM EST Felicita WORTHINGTONgeneral expeditor from [facility] calls to report that patient was discharged from [facility]. Patient has skin graft on left lower extremity. Patient feels like he can do wound care onhis own and does not feel that he needs them to come into his home anymore to help. Josseline Murphy RN documented in this encounterOur Lady Of Mercy Hospital11-29-2022 Miscellaneous Notes* Telephone Encounter - Anita Holbrook LPN - 08/07/2022 9:03 AM EST Popeye with [facility] called and the labs requested earlier did not go thru. Pt identified by name and date of . Requested 3 months back on labs. Copied and faxed to [phone]. Done. Anita Holbrook LPN documented in this encounterOur Lady Of Mercy Hospital11-28-2022 Miscellaneous Notes* Telephone Encounter - Jenae Cruz LPN - 08/06/2022 9:48 AM EST Popeye from [facility] calling received referral and asking for copy of lab to be faxed to [phone]. Printed labs from 08/04/2022 and faxed as requested. documented in this encounterOur Lady Of Mercy Hospital11-25-2022 History of Present illness Narrative* Meli Bolaños, 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.DOUGH MAKER - 08/03/2022 8:47 AM EST [facility] [place] [facility] Follow up Portions of this note [...] Having slow graft function 03/25/22: Admitted to [facility] 2/2 osteomyelitis s/p amputation of fifth toe. Wound culture +necrotizing fascitis. Discharged with COPAT vanc and ampicillin until end of April. Follow up scheduled with wound clinic, ID and Endocrinology Protocol Bx results: 3-6 mos:07/13/21: Limited sample by light microscopy without diagnostic evidence of acute Rejection. Tubular atrophy and interstitial fibrosis, mild. Arteriolar hyalinosis, focal. 1 yr: Local Stock Room Manager: Dr. Montiel Lab Frequency: Monthly Home BP: 120's/60's New Complaints: Feeling well overall Healing left foot. Continues with hyperbaric therapy. Awaiting PT. Completed all antibiotic therapy. Last lab results from 10/24 Will go to [facility] in [place] to establish with Endocrinology. Last A1c from 07/13 at 10.6 Current Outpatient Medications Medication Sig Insulin Lula, Disposable, (BD ULTRA-FINE SANDRA PEN NEEDLE) 32 [...] 3 mg/actuation nasal spray (BAQSIMI) Use 1 [place] in the nose as needed for low [...] Last A1c 10.9 (that we have in [facility]) Rejection: No Malignancies: No Juvencio Haji [...] decision making of high complexity. Meli Bolaños APRN.DOUGH MAKER documented in this encounterOur Lady Of Mercy Hospital11-23-2022 Miscellaneous Notes* Telephone Encounter - Zaida Gaston MD - 08/01/2022 8:54 AM EST Staff Please fax the consult over documented in this encounterOur Lady Of Mercy Hospital11-11-2022 Miscellaneous Notes* Telephone Encounter - Torrie Moore LPN - 07/20/2022 12:26 PM EST Patient phones requesting refills as follows: Requested Prescriptions Pending Prescriptions Disp Refills Insulin Lula, Disposable, (BD ULTRA-FINE SANDRA PEN NEEDLE) 32 gauge x 5/32 200 Each 11 Sig: Use as directed four times daily Please review and advise. Torrie Moore LPN documented in this encounterOur Lady Of Mercy Hospital11-04-2022 History of Present illness Narrative* Zaida [...] SHUNT FOR DIALYSIS Right 08/08/2018 Done at [facility] by Satish Phan MD CHOLECYSTECTOMY 1998 Cholecystectomy [...] diagnostic (BLOOD GLUCOSE TEST) test strip Insulin Lula, Disposable, (BD ULTRA-FINE SANDRA PEN NEEDLE) 32 [...] without long-term current use of insulin (HCC) - ICD9: 250.00, ICD10: E11.9 (primary diagnosis) [...] <130/80 Zaida Gaston MD documented in this encounterOur Lady Of Mercy Hospital10-27-2022 History of Present illness Narrative* Meli Bolaños APRN.DOUGH MAKER - 07/05/2022 8:40 AM EDT [facility] [place] [facility] Follow up Portions of this note [...] Having slow graft function 03/25/22: Admitted to [facility] 2/2 osteomyelitis s/p amputation of fifth toe. Wound culture +necrotizing fascitis. Discharged with COPAT vanc and ampicillin until end of April. Follow up scheduled with wound clinic, ID and Endocrinology Protocol Bx results: 3-6 mos:07/13/21: Limited sample by light microscopy without diagnostic evidence of acute Rejection. Tubular atrophy and interstitial fibrosis, mild. Arteriolar hyalinosis, focal. 1 yr: Local Stock Room Manager: Dr. Montiel Lab Frequency: Monthly Home BP: [...] DAY. DX: 250.E11.9. INSULIN DEP: yes Insulin Lula, Disposable, (BD ULTRA-FINE SANDRA PEN NEEDLE) 32 gauge x 5/32 Use as directed four times daily glucagon 3 mg/actuation nasal spray (BAQSIMI) Use 1 [place] in the nose as needed for low [...] Last A1c 10.9 (that we have in [facility]) Rejection: No Malignancies: No Lashae Perry RN [...] complexity. Meli Bolaños APRN.ANDRE documented in this encounterOur Lady Of Mercy Hospital09-30-2022 History of Present illness Narrative* Juvencio Haji RN - 06/08/2022 12:00 PM EDT [facility] [place] [facility] Follow up Portions of this note [...] Having slow graft function 03/25/22: Admitted to [facility] 2/2 osteomyelitis s/p amputation of fifth toe. Wound culture +necrotizing fascitis. Discharged with COPAT vanc and ampicillin until end april. Follow up scheduled with wound clinic, ID and Endocrinology Protocol Bx results: 3-6 mos:07/13/21: Limited sample by light microscopy without diagnostic evidence of acute Rejection. Tubular atrophy and interstitial fibrosis, mild. Arteriolar hyalinosis, focal. 1 yr: Local Stock Room Manager: Dr. Montiel Lab Frequency: Monthly Home BP: [...] labwork drawn since 03/03. Orders updated in [facility] and new standing lab form given to [...] DAY. DX: 250.E11.9. INSULIN DEP: yes Insulin Lula, Disposable, (BD ULTRA-FINE SANDRA PEN NEEDLE) 32 gauge x /32 Use as directed four times daily glucagon 3 mg/actuation nasal spray (BAQSIMI) Use 1 [place] in the nose as needed for low [...] negative. Juvencio Haji RN documented in this encounterOur Lady Of Mercy Hospital08-17-2022 Miscellaneous Notes* Telephone Encounter - Kathrine [...] patient. Melissa Batres Pss documented in this encounterOur Lady Of Mercy Hospital08-02-2022 History of Present illness Narrative* Zaida Gaston MD - 04/10/2022 4:40 PM EDT Reason for Visit Patient presents with: Established Patient: [facility] left foot 5 th digit removed Italo [...] patient has diabetic neuropathy following at the [facility] with Dr. Levy for leftfoot ulcer with new wound region plantar region and cellulitis prompting debridement culture and initiation of doxycycline, Cipro regimen with daily dressings of silver alginate. He was recommended offloading and surgical shoe. He had been to vacation at [place] between March 13 and March 24. He [...] his wound suddenly worsened. [facility] he was [...] Bronchitis Chronic kidney failure, stage 4 (severe) ([facility]) Depression Detached retina DM type 2, goal HbA1c < 7% (HCC) ESRD (end stage renal disease) ([facility]) GERD (gastroesophageal reflux disease) Hyperlipidemia Kidney stones LUANNE (obstructive sleep apnea) PNA (pneumonia) Proliferative retinopathy 02/10/2019 Snoring Unspecified essential hypertension Vitamin D deficiency PAST SURGICAL HISTORY Procedure Laterality Date AMPUTATION TOE,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 08/08/2018 Done at [facility] by Satish Phan MD CHOLECYSTECTOMY 1998 Cholecystectomy [...] diagnostic (BLOOD GLUCOSE TEST) test strip Insulin Lula, Disposable, (BD ULTRA-FINE SANDRA PEN NEEDLE) 32 [...] 1. Amputation of little toe, initial encounter ([facility]) - ICD9: 895.0, ICD10: S98.139A (primary diagnosis) [...] evidence of necrosis, unspecified part of foot ([facility]) - ICD9: 250.80, 707.15, ICD10: E11.621, L97.525 Controlled. - Continue current medications 4. Osteomyelitis of toe ([facility]) - ICD9: 730.27, ICD10: M86.9 He will need long-term antibiotic He has an ID that following up with him and podiatry and wound center Zaida Gaston MD documented in this encounterOur Lady Of Mercy Hospital08-01-2022 Miscellaneous Notes* Telephone Encounter - Zaida Gaston MD - 04/09/2022 6:57 PM EDT Noted * Telephone Encounter - Kirti Rehman RN - 04/09/2022 3:41 PM EDT Felicita with [facility] calling to update PCP that patient fell off [place]. He has a superficial abrasion to his right knee. Patient denies hitting hishead or other injuries. Thank you. Kirti Rehman RN documented in this encounterOur Lady Of Mercy Hospital07-28-2022 Miscellaneous Notes* Telephone Encounter - DELROY Subramanian - 04/05/2022 10:29 PM EDT Patient phones requesting refills as follows: Pending Prescriptions Disp Refills PANTOPRAZOLE 20 MG TABLET,DELAYED RELEASE 90 tablet 1 Sig: Take 1 tablet by mouth once daily. RHETT: No Please review and advise. DELROY Subramanian documented in this encounterOur Lady Of Mercy Hospital07-20-2022 Miscellaneous Notes* Telephone Encounter - Monik Chinchilla Ma - 03/28/2022 8:47 AM EDT Maranda notified. * Telephone Encounter - Zaida Gaston MD - 03/27/2022 5:27 PM EDT Yes He needs follow up with us anisa * Telephone Encounter - Kirti Rehman RN - 03/27/2022 1:57 PM EDT Maranda from [facility] calling. She reports patient will be discharging from [facility] tomorrow with diagnosis of necrotizing fascitis and left foot diabetic wound. Patient will be going home with a wound vac and IV. She reports Dr. Gomez will be following patient for the wound vac and Dr Rush will be following for IV therapy. Maranda asking if Dr. Gaston will follow patient for PT and OT orders? Please call Maranda at [phone] Thank you documented in this encounterOur Lady Of Mercy Hospital06-30-2022 History of Present illness Narrative* Chelsea Ryan MD - 03/08/2022 2:44 PM EDT [facility] [place] [facility] Follow up Portions of this note [...] mild. Arteriolar hyalinosis, focal. 1 yr: Local Stock Room Manager: Dr. Montiel Lab Frequency: Monthly Home BP: [...] DAY. DX: 250.E11.9. INSULIN DEP: yes Insulin Lula, Disposable, (BD ULTRA-FINE SANDRA PEN NEEDLE) 32 gauge x Use as directed four times daily glucagon 3 mg/actuation nasal spray (BAQSIMI) Use 1 [place] in the nose as needed for low [...] Pt's scheduled him to see endocrinology in [facility] for improved glycemic control. Z94.0 Kidney [...] complexity. Chelsea Ryan MD documented in this encounterOur Lady Of Mercy Hospital06-24-2022 Miscellaneous Notes* Telephone Encounter - Conner LEZAMA - 03/02/2022 4:28 PM EDT Email Address: [email or web address] Patient Demographics: Eddie BURGOS [id number] Date Letter Sent: 03/02/2022 Information Sent: CUTEPDF documented in this encounterOur Lady Of Mercy Hospital06-08-2022 Miscellaneous Notes* Telephone Encounter - Juvencio [...] advise. Juvencio Haji RN documented in this encounterOur Lady Of Mercy Hospital05-02-2022 Miscellaneous Notes* Telephone Encounter - Megan Bermudez - 01/08/2022 2:04 PM EDT [facility] JORDY: 12/08/21 Patient's request for medication is as follows: Pending Prescriptions Disp Refills PANTOPRAZOLE 20 MG TABLET,DELAYED RELEASE 90 tablet 1 Sig: Take 1 tablet by mouth once daily. RHETT: Yes Please approve the above prescription(s) to electronically send to pharmacy. Megan Bermudez documented in this encounterOur Lady Of Mercy Hospital04-19-2022 History of Present illness Narrative* Kathy Juraod, Research Coordinator - 12/26/2021 9:23 AM EDT Study Title: IRB# [id number] Validation of genomic immune-phenotyping profiles in peripheral blood genesignatures to predict risk of kidney transplant rejection Visit: Screening/Consent PI: Dr. Jose Link personnel coordinator: Kathy Jurado Study ID Number: [id number] Visit Timepoint: 6 months The patient verbally consents to continue in the research: Yes Labs Drawn: Patient taken to the clinical lab for blood draw. Labs collected at: 08:20 AM Collect Clean Catch Urine Sample: Sample colleted at: 08:20 AM Follow Up: Patient instructed that next study visit will be: 12 months Kathy Jurado [phone] Research Coordinator documented in this encounterOur Lady Of Mercy Hospital04-01-2022 History of Present illness Narrative* Alana Kent APRN.DOUGH MAKER - 12/08/2021 8:47 AM EDT [facility] [place] [facility] Follow up Portions of this note [...] mild. Arteriolar hyalinosis, focal. 1 yr: Local Stock Room Manager: Dr. Montiel Lab Frequency: Every other week Home BP: 150's/80's New Complaints: Feeling well overall Has blisters to all left toes. Taking Amoxicillin, unsure of dose or duration. Being followed by local hr analyst No complaints Current Outpatient Medications Medication Sig [...] DAY. DX: 250.E11.9. INSULIN DEP: yes Insulin Lula, Disposable, (BD ULTRA-FINE SANDRA PEN NEEDLE) 32 gauge x 32 Use as directed four times daily glucagon 3 mg/actuation nasal spray (BAQSIMI) Use 1 [place] in the nose as needed for low [...] 5. Lipids/CV risk: Continue atorvastastin 6. Bone health/penitentiary corticosteroid use: Ca/phos stable 7. Health maintenance: Up to date 8. Viral screening: BK/CMV negative 9. other: RTC in 2 weeks Alana Kent APRN.DOUGH MAKER documented in this encounterOur Lady Of Mercy Hospital04-09-2019 History of Past illness Narrative* Problem [...] of this encounter (statuses as of 11/23/2022) [facility] of Past illness Narrative* Problem [...] of this encounter (statuses as of 01/01/2023) [facility] of Past illness Narrative* Problem [...] of this encounter (statuses as of 01/02/2023) [facility] Past illness Narrative* Problem [...] of this encounter (statuses as of 01/17/2023) [facility] Past illness Narrative* Problem [...] of this encounter (statuses as of 01/17/2023) [facility] Past illness Narrative* Problem [...] of this encounter (statuses as of 02/26/2023) [facility] illness Narrative* Problem [...] of this encounter (statuses as of 03/14/2023) [facility] illness Narrative* Problem [...] of this encounter (statuses as of 03/20/2023) [facility] Narrative* Problem [...] of this encounter (statuses as of 04/03/2023) [facility] Narrative* Problem [...] of this encounter (statuses as of 04/12/2023) [facility] Past illness Narrative* Problem [...] of this encounter (statuses as of 05/22/2023) [facility] Narrative* Problem [...] of this encounter (statuses as of 07/02/2023) [facility] Narrative* Problem [...] of this encounter (statuses as of 07/14/2023) [facility] Narrative* Problem [...] of this encounter (statuses as of 07/16/2023) [facility] Narrative* Problem [...] of this encounter (statuses as of 07/20/2023) [facility] Narrative* Problem [...] of this encounter (statuses as of 07/23/2023) [facility] Narrative* Problem [...] of this encounter (statuses as of 07/25/2023) [facility] Narrative* Problem [...] of this encounter (statuses as of 07/31/2023) [facility] Narrative* Problem [...] of this encounter (statuses as of 08/14/2023) [facility] Narrative* Problem [...] of this encounter (statuses as of 08/21/2023) [facility] Narrative* Problem [...] of this encounter (statuses as of 08/24/2023) [facility] Narrative* Problem [...] of this encounter (statuses as of 08/30/2023) [facility] Narrative* Problem [...] of this encounter (statuses as of 09/22/2023) [facility] Narrative* Problem [...] of this encounter (statuses as of 10/11/2023) [facility] Narrative* Problem [...] of this encounter (statuses as of 10/11/2023) [facility] Narrative* Problem [...] of this encounter (statuses as of 10/14/2023) [facility] N[facility]* Problem [...] of this encounter (statuses as of 10/14/2023) [facility]* Problem [...] of this encounter (statuses as of 10/30/2023) [facility]* Problem [...] of this encounter (statuses as of 11/01/2023) [facility]* Problem [...] of this encounter (statuses as of 11/25/2023) [facility]* Problem [...] of this encounter (statuses as of 11/26/2023) [facility]* Problem [...] of this encounter (statuses as of 11/27/2023) [facility] Narrative* Problem [...] of this encounter (statuses as of 12/13/2023) [facility]* Problem [...] of this encounter (statuses as of 12/08/2021) [facility]* Problem [...] of this encounter (statuses as of 12/20/2021) [facility]* Problem [...] of this encounter (statuses as of 12/26/2021) [facility]* Problem [...] of this encounter (statuses as of 01/12/2022) [facility]* Problem [...] of this encounter (statuses as of 02/14/2022) [facility]* Problem [...] of this encounter (statuses as of 03/02/2022) [facility]* Problem [...] of this encounter (statuses as of 03/08/2022) [facility]* Problem [...] of this encounter (statuses as of 03/28/2022) [facility]* Problem [...] of this encounter (statuses as of 03/28/2022) [facility]* Problem [...] of this encounter (statuses as of 04/06/2022) [facility] Problem [...] of this encounter (statuses as of 04/10/2022) [facility] Problem [...] of this encounter (statuses as of 04/11/2022) [facility] Problem [...] of this encounter (statuses as of 04/25/2022) [facility] Problem [...] of this encounter (statuses as of 05/17/2022) [facility] Problem [...] of this encounter (statuses as of 05/17/2022) [facility]* Problem [...] of this encounter (statuses as of 06/12/2022) [facility] Problem [...] of this encounter (statuses as of 07/05/2022) [facility] Problem [...] of this encounter (statuses as of 07/13/2022) [facility] Problem [...] of this encounter (statuses as of 07/20/2022) [facility]* Problem [...] of this encounter (statuses as of 08/01/2022) [facility]* Problem [...] of this encounter (statuses as of 08/03/2022) [facility]* Problem [...] of this encounter (statuses as of 08/06/2022) [facility]* Problem [...] of this encounter (statuses as of 08/07/2022) [facility]* Problem [...] of this encounter (statuses as of 08/23/2022) [facility]* Problem [...] of this encounter (statuses as of 08/23/2022) [facility]* Problem [...] of this encounter (statuses as of 08/23/2022) [facility]* Problem [...] of this encounter (statuses as of 08/25/2022) [facility] Problem [...] of this encounter (statuses as of 09/24/2022) [facility] Problem [...] of this encounter (statuses as of 09/24/2022) [facility] Problem [...] of this encounter (statuses as of 10/04/2022) [facility] Problem [...] of this encounter (statuses as of 10/15/2022) [facility]* Problem [...] of this encounter (statuses as of 11/21/2022) [facility]* Problem [...] of this encounter (statuses as of 11/22/2022) [facility] Author Dr. Levy [facility] November 01, 2022 10:17am Note Date/Time November 01, 2022 10:16am [facility] Medical Records Department [address] [place] [address] Consultation 11/01/22 1007 MR#: [id number] Acct: [id number] Name: ITALO BURGOS Rep #:[id number] : 1970 51 From: Mayo Levy DPM [...] to transmetatarsal amputation today. No other complaints. [facility] Medical History (Updated 11/01/22 @ 10:[address] Mayo Levy DPM) Acute hypoxemic respiratory failure Acute on chronic diastolic CHF (congestive heart failure) Acute respiratory failure with hypoxia ILDA (acute kidney injury) Anasarca associated with disorder of kidney Anemia of chronic renal failure, stage 4 (severe) Anxiety and depression Atherosclerotic heart disease of [place] coronary artery without angina pectoris Autonomic neuropathy [...] applicable): CC: Dr. Zaida Gaston MD~ Signed [facility] Work Phone: Discharge summary Author Dona Medina [facility] November 05, 2022 7:23pm Note Date/Time November 05, 2022 7:09pm [facility] Medical Records Department [address] [place] [address] Discharge Summary 11/05/22 1909 MR#: [id number] Acct: [id number] Name: ITALO BURGOS Rep #:[id number] : 1970 51 From: Dona adams DPM PCP: Dr. Zaida Gaston MD Status:ADM I N [id number] Prov[facility] Date of Admission: 11/01/22 Date of Discharge: 11/05/22 Primary Care Physician: Dr. Zaida Gaston MD Consultations 11/01/22 14:43 Consult: Hospitalist Routine Consulting Provider: [facility] Reason for Consult: left foot infection, sirg clearance EMERGENT Consult: No MD Notified: Yes Date Notified: 11/01/22 Time Notified: 11:00 Method of Notification: ED Physician Initiated Consult: Infectious Disease Routine Consulting Provider: Satish Nava Reason for Consult: left foot infection, TMA today EMERGENT Consult: No MD Notified: Yes Date Notified: 11/01/22 Time Notified: 15:54 Method of Notification: Answering Service Consult: Onc/Wound/photovoltaic technician Routine Comment: Reason For Visit: wound Diagnosis [...] Medina Jr. D.P.M. [facility] [phone] Medications at Discharge Home Medications insulin lispro [...] left foot. He was sent to the [facility] ED for admitting and receiving of IV antibiotics. Patient did undergo lab work along with chest x-ray and EKG in order for surgical clearance. Medicine team did follow for medical management. Song And Dance Performer on-call, Dr. Levy performed transmetatarsal amputation of [...] Henderson ; Awa Martínez ; Vivian Garrison FAMILY RESOURCE MANAGEMENT PROFESSOR ; John Funes FAMILY RESOURCE MANAGEMENT PROFESSOR ; Faviola Josue ; Satish Nava Discharge [...] IRIS Medina; Dr. Zaida Gaston MD~ Signed [facility] Work Phone: Discharge summary Author Dona Medina [facility] November 05, 2022 7:13pm Note Date/Time November 05, 2022 7:13pm [facility] Medical Records Department [address] [place] [address] Instructions for Home/Discharge Instructions 11/05/22 190 MR#: [id number] Acct: [id number] Name: ITALO BURGOS Rep #:[id number] : 1970 51 From: Dona adams DPM [...] Self Care 11/05/221912<Electronically signed by Dona Medina DPM>Dona Medina DPM CC: FAMILY RESOURCE MANAGEMENT PROFESSOR-C Vivian Garrison; FAMILY RESOURCE MANAGEMENT PROFESSOR-C John Funes; AJ Josue; Delmy Billy; Dr. Amy Ureña MD; Dr. Zaida Gaston MD; Dr. William Hayes DO; Dr. Kendra MD; Dr. Awa Martínez MD; Dr. Satish Nava MD ~ Signed [facility] Work Phone: Evaluation note* Diagnosis S/P kidney transplant- Primary Kidney replaced by transplant Immunosuppressive management encounter following kidney transplant Encounter for long-term (current) use of other medications [facility] Diagnosis Onset Date Resolution Status Hyperglycemia resolved Hyperkalemia resolved [facility] Work Phone: Evaluation note* Diagnosis Research subject- Primary [facility] Diagnosis Onset Date Resolution Status Hyperglycemia resolved Hyperkalemia resolved Type 2 diabetes mellitus with diabetic polyneuropathy acute 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 exposed chronic Non-pressure chronic ulcer o f other part of right foot with fat layer exposed chronic [facility] Work Phone: Evaluation note* Diagnosis Onset Date Resolution Status Type 2 diabetes mellitus with diabetic polyneuropathy acute 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 exposed chronic Non-pressure chronic ulcer o f other part of right foot with fat layer exposed chronic Renal transplant recipient a cute Atherosclerotic heart diseas e of [place] coronary artery without angina pectoris chronic Essential hypertension chron ic HLD (hyperlipidemia) chronic Type 2 diabetes mellitus with diabetic polyneuropathy acute 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 exposed chronic Non-pressure chronic ulcer o f other part of right foot with fat layer exposed chronic [facility] Work Phone: Evaluation note* Diagnosis Kidney replaced by transplant- Primary Encounter for aftercare following kidney transplant Aftercare following organ transplant Post-transplant erythrocytosis Polycythemia, secondary Immunosuppressive management encounter following kidney transplant Encounter for long-term (current) use of other medications [facility] Diagnosis Onset Date Resolution Status Type 2 diabetes mellitus with diabetic polyneuropathy acute 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 exposed chronic Non-pressure chronic ulcer o f other part of right foot with fat layer exposed chronic Renal transplant recipient a cute Atherosclerotic heart diseas e of [place] coronary artery without angina pectoris chronic Essential [...] chronic Other specified peripheral vascular diseases chronic [facility] Work Phone: Evaluation note* Diagnosis Onset Date Resolution Status Type 2 diabetes mellitus with diabetic polyneuropathy acute 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 exposed chronic Non-pressure chronic ulcer o f other part of right foot with fat layer exposed chronic Renal transplant recipient a cute Atherosclerotic heart diseas e of [place] coronary artery without angina pectoris chronic Essential [...] hyperglycemia acute ILDA (acute kidney injury) [place] Diabetic foot infection acut e Necrotizing fasciitis acute Sepsis acute [facility] Work Phone: Evaluation note* Diagnosis Onset Date Resolution Status Type 2 diabetes mellitus with diabetic polyneuropathy acute 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 exposed chronic Non-pressure chronic ulcer o f other part of right foot with fat layer exposed chronic Renal transplant recipient a cute Atherosclerotic heart diseas e of [place] coronary artery without angina pectoris chronic Essential [...] hyperglycemia acute ILDA (acute kidney injury) [place] Bacteremia acute Cellulitis of left lower limb [...] with fat layer exposed chronic Noncompliance chronic [facility] Work Phone: Evaluation note* Diagnosis Kidney replaced by transplant- Primary [facility] Diagnosis Onset Date Resolution Status Non-pressure chronic ulcer o f other part of right foot with fat layer exposed chronic Atherosclerotic heart diseas e of [place] coronary artery without angina pectoris chronic Non-pressure chronic ulcer o f other part of right foot with fat layer exposed chronic Other specified peripheral vascular diseases chronic Acute hyperglycemia resolved ILDA (acute kidney injury) re solved Bacteremia resolved Sepsis resolved 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 acute Other specified peripheral vascular diseases chronic Bacteremia resolved Sepsis resolved [facility] Work Phone: Evaluation note* Diagnosis Amputation of little toe, initial encounter (HCC)- Primary Necrotizing fasciitis (HCC) Necrotizing fasciitis Diabetic ulcer of left foot associated with type 2 diabetes mellitus, with muscle involvement without evidence of necrosis, unspecified part of foot (HCC) Osteomyelitis of toe (HCC) Unspecified osteomyelitis, ankle and foot [facility] Diagnosis Onset Date Resolution Status Atherosclerotic heart diseas e of [place] coronary artery without angina pectoris chronic Non-pressure [...] 2 diabetes mellitus with diabetic polyneuropathy chronic [facility] Work Phone: Evaluation note* Diagnosis Onset [...] Type 2 diabetes mellitus with diabetic polyneuropathy [facility] Work Phone: Evaluation note* Diagnosis Kidney replaced by transplant- Primary [facility] Diagnosis Encounter for aftercare following kidney transplant- Primary Aftercare following organ transplant Kidney replaced by transplant Immunosuppressive management encounter following kidney transplant Encounter for long-term (current) use of other medications Essential hypertension Unspecified essential hypertension Transaminitis Nonspecific elevation of levels of transaminase or lactic acid dehydrogenase (LDH) documented in this encounter [facility] note* Diagnosis Controlled type 2 diabetes mellitus without complication, without long-term current use of insulin ([facility])- Primary Uncontrolled hypertension Unspecified essential hypertension Need for influenza vaccination Need for prophylactic vaccination and inoculation against influenza [facility]* Diagnosis Controlled type 2 diabetes mellitus without complication, without long-term current use of insulin ([facility])- Primary documented in this encounter [facility] note* Diagnosis Kidney replaced by transplant- Primary Encounter for aftercare following kidney transplant Aftercare following organ transplant Immunosuppressive management encounter following kidney transplant Encounter for long-term (current) use of other medications Essential hypertension Unspecified essential hypertension documented in this encounter [facility] note* Diagnosis Type 1 diabetes mellitus on insulin therapy ([facility])- Primary Type I (juvenile type) diabetes mellitus without mention of complication, not stated as uncontrolled Medication management Encounter for long-term (current) use of other medications documented in this encounter [facility] note* Diagnosis Diabetic ulcer of left foot associated with type 1 diabetes mellitus, unspecified part of foot, unspecified ulcer stage (HCC)- Primary Other hyperlipidemia Hypertension goal BP (blood pressure) < 140/90 Unspecified essential hypertension Diabetic polyneuropathy associated with type 2 diabetes mellitus ([facility]) 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 ([facility]) End stage renal disease Type 1 diabetes mellitus on insulin therapy (HCC) Type I (juvenile type) diabetes mellitus without mention of complication, not stated as uncontrolled Moderate episode of recurrent major depressive disorder ([facility]) documented in this encounter [facility] note* Diagnosis Onset Date Resolution Status History [...] polyneuropathy chronic Atherosclerotic heart diseas e of [place] coronary artery without angina pectoris chronic Diabetic foot ulcer acute [id number] acute 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 acute 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 exposed acute Osteomyelitis of metatarsal acute 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 [facility] Work Phone: Evaluation note* Diagnosis Onset [...] polyneuropathy chronic Atherosclerotic heart diseas e of [place] coronary artery without angina pectoris chronic Diabetic foot ulcer chronic Obesity (BMI 30-39.9) chroni c 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 [id number] acute 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 acute 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 exposed acute Osteomyelitis of metatarsal acute Diabetic foot ulcer chronic 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 [facility] Work Phone: Evaluation note* Diagnosis Type 1 diabetes mellitus on insulin therapy (HCC)- Primary Type I (juvenile type) diabetes mellitus without mention of complication, not stated as uncontrolled [facility] Diagnosis Kidney replaced by transplant- Primary Immunosuppressive management encounter following kidney transplant Encounter for long-term (current) use of other medications Mixed hyperlipidemia [facility] Diagnosis Type 1 diabetes mellitus on insulin therapy (HCC)- Primary Type I (juvenile type) diabetes mellitus without mention of complication, not stated as uncontrolled [facility] Diagnosis Onset Date Resolution Status [...] polyneuropathy chronic Atherosclerotic heart diseas e of [place] coronary artery without angina pectoris chronic Diabetic foot ulcer chronic Obesity (BMI 30-39.9) chroni c 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 [id number] acute 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 acute 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 exposed acute Osteomyelitis of metatarsal acute Diabetic foot ulcer chronic 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 [id number] acute 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 acute 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 exposed acute Osteomyelitis of metatarsal acute Diabetic foot ulcer chronic 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 [facility] Work Phone: Evaluation note* Diagnosis Onset [...] polyneuropathy chronic Atherosclerotic heart diseas e of [place] coronary artery without angina pectoris chronic Diabetic foot ulcer chronic Obesity (BMI 30-39.9) chroni c 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 [id number] acute 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 acute 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 exposed acute Osteomyelitis of metatarsal acute Diabetic foot ulcer chronic 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 [id number] acute History of partial ray amput ation [...] (severe) chronic Atherosclerotic heart diseas e of [place] coronary artery without angina pectoris chronic Chronic renal failure, stage 4 (severe) chronic Diabetic nephropathy chronic 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 Other specified peripheral vascular diseases [facility] Work Phone: Evaluation note* Diagnosis Onset Date [...] a cute Atherosclerotic heart diseas e of [place] coronary artery without angina pectoris chronic Diabetic foot ulcer chronic Obesity (BMI 30-39.9) chroni c 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 [id number] acute 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 acute 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 exposed acute Osteomyelitis of metatarsal acute Diabetic foot ulcer chronic 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 [id number] acute History of partial ray amput ation [...] (severe) chronic Atherosclerotic heart diseas e of [place] coronary artery without angina pectoris chronic Chronic renal failure, stage 4 (severe) chronic Diabetic nephropathy chronic 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 Other specified peripheral vascular diseases [facility] Work Phone: Evaluation note* Diagnosis Moderate episode of recurrent major depressive disorder (HCC) [facility] Diagnosis Type 1 diabetes mellitus on insulin therapy (HCC)- Primary Type I (juvenile type) diabetes mellitus without mention of complication, not stated as uncontrolled [facility] Diagnosis Moderate episode of recurrent major [...] Unspecified essential hypertension [facility] Diagnosis Kidney replaced by transplant- Primary Encounter for aftercare following kidney transplant Aftercare following organ transplant Immunosuppressive management encounter following kidney transplant Encounter for long-term (current) use of other medications ILDA (acute kidney injury) (HCC) Acute kidney failure, unspecified [facility] Diagnosis Onset Date Resolution Status [id number] acute History of partial ray amput ation [...] (severe) chronic Atherosclerotic heart diseas e of [place] coronary artery without angina pectoris chronic Chronic [...] Type 2 diabetes mellitus with hyperglycemia chronic [facility] Work Phone: Evaluation note* Diagnosis Kidney replaced by transplant- Primary [facility] Diagnosis Hypertension goal BP (blood pressure) < 140/90- Primary Unspecified essential hypertension Other hyperlipidemia Type 1 diabetes mellitus on insulin therapy (HCC) Type I (juvenile type) diabetes mellitus without mention of complication, not stated as uncontrolled Moderate episode of recurrent major depressive disorder (HCC) Diarrhea, unspecified type Pain of right lower extremity Left leg claudication ([facility]) Peripheral vascular disease, unspecified Viral wart on finger [facility] Diagnosis Onset Date Resolution Status Diabetic nephropathy chronic Obesity (BMI 30-39.9) chroni c Type 2 diabetes mellitus with hyperglycemia chronic Renal transplant recipient a cute Atherosclerotic heart diseas e of [place] coronary artery without angina pectoris chronic [facility] Work Phone: Evaluation note* Diagnosis Encounter for aftercare following kidney transplant- Primary Aftercare following [facility] Pain of right lower extremity [facility] Diagnosis Diabetic polyneuropathy associated with type 2 diabetes mellitus (HCC)- Primary Moderate episode of recurrent major depressive disorder (HCC) Kidney transplant recipient Elevated alkaline phosphatase level Other nonspecific abnormal serum enzyme levels Erectile dysfunction, unspecified erectile dysfunction type Mixed hyperlipidemia [facility] Diagnosis Kidney replaced by transplant- Primary Vitamin D deficiency Unspecified vitamin D deficiency Erectile dysfunction, unspecified erectile dysfunction type Immunosuppressive management encounter following kidney transplant Encounter for long-term (current) use of other medications PTE (post-transplant erythrocytosis) Polycythemia, secondary [facility] Diagnosis Kidney replaced by transplant- Primary [facility] Diagnosis Kidney replaced by transplant- Primary High risk medication use Encounter for long-term (current) use of other medications Vitamin D deficiency Unspecified vitamin D deficiency [facility] Diagnosis Kidney replaced by transplant- Primary [facility] Diagnosis Impotence Impotence of organic origin [facility] Diagnosis Impotence of organic origin- Primary [facility]* Diagnosis Type 1 diabetes mellitus on insulin therapy (HCC)- Primary Type I (juvenile type) diabetes mellitus without mention of complication, not stated as uncontrolled Kidney transplant recipient Hypertension goal BP (blood pressure) < 140/90 Unspecified essential hypertension Moderate episode of recurrent major depressive disorder (HCC) LUANNE (obstructive sleep apnea) Obstructive sleep apnea (adult) (pediatric) [facility] Diagnosis Moderate episode of recurrent major depressive disorder (HCC) [facility] Moderate episode of recurrent major depressive disorder (HCC) [facility] Diagnosis Impotence of organic origin [facility]* Diagnosis Diarrhea, unspecified type- Primary Mixed hyperlipidemia Kidney transplant recipient Diabetic polyneuropathy associated with type 2 diabetes mellitus (HCC) [facility] Diagnosis Immunosuppressed status (HCC)- Primary Unspecified disorder of immune mechanism Kidney replaced by transplant [facility]* Diagnosis Diabetic polyneuropathy associated with type 2 diabetes mellitus (HCC) [facility]* Diagnosis Onset Date Resolution Status Obesity (BMI 30-39.9) chroni c Polyneuropathy chronic 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 Renal transplant recipient a cute Atherosclerotic heart diseas e of [place] coronary artery without angina pectoris chronic Chronic renal failure, stage 4 (severe) chronic Hypertension chronic Obesity (BMI 30-39.9) chroni c Type 2 diabetes mellitus with hyperglycemia chronic [facility] Work Phone: Evaluation note* Diagnosis Kidney replaced by transplant- Primary [facility]* Diagnosis Type 1 diabetes mellitus on [...] apnea (adult) (pediatric) documented in this encounter [facility] note* Diagnosis Moderate episode of recurrent major depressive disorder (HCC)- Primary [facility]* Diagnosis Diarrhea, unspecified type- Primary Gastroesophageal reflux disease without esophagitis Esophageal reflux FH: colon cancer in first degree relative <60 years old documented in this encounter [facility] note* Diagnosis Nausea and vomiting, unspecified vomiting type- Primary Diarrhea, unspecified type documented in this encounter [facility] note* Diagnosis Type 2 diabetes mellitus [...] stated as uncontrolled documented in this encounter [facility] note* Diagnosis Type 2 diabetes mellitus [...] kidney disease (HCC) documented in this encounter [facility] note* Diagnosis Type 2 diabetes mellitus [...] depressive disorder (HCC) documented in this encounter [facility] note* Diagnosis Type 2 diabetes mellitus [...] stated as uncontrolled documented in this encounter [facility] note* Diagnosis Type 2 diabetes mellitus [...] esophagitis Esophageal reflux [facility] noteNo assessment information [facility] [facility] Work Phone: Evaluation note* Diagnosis Type 2 [...] unspecified hydronephrosis type [facility] Diagnosis Type 2 diabetes mellitus with [...] of other medications documented in this encounter [facility] note* Diagnosis Type 2 diabetes mellitus [...] depressive disorder (HCC) [facility] Diagnosis Type 2 diabetes mellitus with [...] associated with type 2 diabetes mellitus (HCC) Type 1 diabetes mellitus on insulin therapy (HCC)- Primary Type I (juvenile type) diabetes mellitus without mention of complication, not stated as uncontrolled [facility] Diagnosis Type 2 diabetes mellitus with [...] (blood pressure) < 140/90 Unspecified essential hypertension Screening for genitourinary condition Screening for other and unspecified genitourinary condition [facility] Diagnosis Type 2 diabetes mellitus with [...] (blood pressure) < 140/90 Unspecified essential hypertension Nephrolithiasis- Primary Calculus of kidney Kidney replaced by transplant (HCC) Kidney replaced by transplant [facility] Author Dr. Levy [facility] November 01, 2022 10:43am Note Date/Time November 01, 2022 10:42am [facility] Medical Records Department [address] [place] [address] History & Physical Exam 11/01/22 1041 MR#: [id number] Acct: [id number] Name: ITALO BURGOS Rep #:[id number] : 1970 51 From: Mayo Levy DPM PCP: Dr. Zaida Gaston MD Status:REG S UT Location: [place] [address] HPI - General General Date of Admission: [...] to transmetatarsal amputation today.? No other complaints. [facility] Medical History Acute hypoxemic respiratory failure Acute on chronic diastolic CHF (congestive heart failure) Acute respiratory failure with hypoxia ILDA (acute kidney injury) Anasarca associated with disorder of kidney Anemia of chronic renal failure, stage 4 (severe) Anxiety and depression Atherosclerotic heart disease of [place] coronary artery without angina pectoris Autonomic neuropathy [...] % (Auto) 67.5, Lymph % (Auto) 21.1, Gove% (Auto) 9.7, Eos % (Auto) 0.9, Baso [...] IRIS Levy; Dr. Zaida Gaston MD~ Signed [facility] Work Phone: Hospital Discharge instructions Additional Instructions Your creatinine 2.1. You are given a liter follow-up with us. Use Reglan as needed for dizziness symptoms. Follow-up your doctor recheck labs.[facility] Work Phone: Progress [facility] November 05, 2022 7:08pm Note Date/Time November 05, 2022 7:08pm [facility] Medical Records Department [address] [place] [address] Progress Note 11/05/221902 MR#: [id number] Acct: [id number] Name: ITALO BURGOS Rep #:[id number] : 1970 51 From: Dona adams DPM PCP: Dr. Zaida Gaston MD Status:ADM I N Location: NM3 [id number] Subjective Subjective Patient was seen bedside sitting [...] scheduled to follow-up in office on 11/07/2022. Jr. Howie ParedesP.M. [facility] [phone] 11/05/221907 <Electronically signed by Dona Medina DPM> Dona Vazquez Cosigner Signature (if applicable): CC: ~ Signed [facility] Work Phone: Reason for referral (narrative)* Outpatient Procedure (Routine) - Authorized Specialty Diagnoses / Procedures Referred By Contac t Referred To Contact [facility] Diagnoses Left leg claudication (HCC) Procedures PVR LEG W/EXC ROLY VAS LAB N-INVAS PHYSIOLOGIC STD [place] [address] [place], [place] [id number] [place] [phone] Referral ID Status Reason Start Date Expiration Date Visits Requested Visits Authorized [id number] Authorized Auto-Generat ed Referral 02/25/2023 02/25/2024 1 1 * Outpatient Procedure (Routine) - Authorized Specialty Diagnoses / Procedures Referred By Contac t Referred To Contact [facility] Diagnoses Pain of right lower extremity Procedures US LEG VEIN DVT UNL VAS LAB DUP-SCAN XTR VEINS UNILATERAL/LIMITED STUDY Zaida Gaston MD [address] [place] [address] [place] [phone] Referral ID Status Reason Start Date Expiration Date Visits Requested Visits Authorized [id number] Authorized Auto-Generat ed Referral 02/25/2023 02/25/2024 1 1 * Consult, Test, Treat (Routine) - Pending Review Specialty Diagnoses / Procedures Referred By Contac t Referred To Contact Gastroenterology Diagnoses Diarrhea, unspecified type Procedures CONSULT TO GASTROENTEROLOGY OFFICE/OUTPATIENT [facility] HIGH MDM 60-74 MINUTES Zaida Gaston MD [address] [place] [address] Referral ID Status Reason Start Date Expiration Date Visits Requested Visits Authorized [id number] Pending Review PCP Requested Referral 02/25/2023 02/25/2024 1 1 [facility] for referral (narrative)* Outpatient Procedure (Routine) - New Request Specialty Diagnoses / Procedures Referred By Contac t Referred To Contact [facility] Diagnoses Diarrhea, unspecified type Procedures COLONOSCOPY DIAGNOSTIC COLONOSCOPY FLX DX W/COLLJ SPEC WHEN Nia Anne APRN.DOUGH MAKER [address] [place] [address] [facility] [address] [address] Referral ID Status Reason Start Date Expiration Date Visits Requested Visits Authorized [id number] New Request Auto-Generat ed Referral 03/24/2024 03/24/2025 1 1 * Outpatient Procedure (Routine) - New Request Specialty Diagnoses / Procedures Referred By Contac t Referred To Contact [facility] Diagnoses Diarrhea, unspecified type Procedures EGD DIAGNOSTIC ESOPHAGOGASTRODUODENOSC OPY TRANSORAL DIAGNOSTIC Nia James APRN.DOUGH MAKER [address] [place] [address] [facility] [place] [phone] Referral ID Status Reason Start Date Expiration Date Visits Requested Visits Authorized [id number] New Request Auto-Generat ed Referral 03/24/2024 03/24/2025 1 1 [facility] for referral (narrative)* Outpatient Procedure (Routine) - Closed Specialty Diagnoses / Procedures Referred By Contac t Referred To Contact Diagnoses Diarrhea, unspecified type Procedures COLONOSCOPY DIAGNOSTIC COLONOSCOPY FLX DX W/COLLJ SPEC WHEN Nia Anne APRN.DOUGH MAKER [address] [place] [address] [facility] [address] [place] [address] Referral ID Status Reason Start Date Expiration Date V isits Requested Visits Authorized [id number] Closed Auto-Generate d Referral 04/01/2024 03/24/2025 1 1 * Outpatient Procedure (Routine) - Closed Specialty Diagnoses / Procedures Referred By Contac t Referred To Contact [facility] Diagnoses Diarrhea, unspecified type Procedures EGD DIAGNOSTIC ESOPHAGOGASTRODUODENOSC OPY TRANSORAL DIAGNOSTIC Nia James APRN.DOUGH MAKER [address] [place] [address] [facility] [address] [address] Referral ID Status Reason Start Date Expiration Date V isits Requested Visits Authorized [id number] Closed Auto-Generate d Referral 03/24/2024 03/24/2025 1 1 [facility] for referral (narrative)No reason for referral information [facility] Work Phone: Reason for visit Narrative* Outpatient Procedure (Routine) - Closed Specialty Diagnoses / Procedures Referred By Contac t Referred To Contact [facility] Diagnoses Pain of right lower extremity Procedures US LEG VEIN DVT UNL VAS LAB DUP-SCAN XTR VEINS UNILATERAL/LIMITED STUDY Zaida Gaston MD [address] [place] [address] [facility] [address] [place] [id number] Referral ID Status Reason Start Date Expiration Date V isits Requested Visits Authorized [id number] Closed Auto-Generate d Referral 02/25/2023 02/25/2024 1 1 [facility] for visit Narrative* Outpatient Procedure (Routine) - Closed Specialty Diagnoses / Procedures Referred By Contac t Referred To Contact Diagnoses Diarrhea, unspecified type Procedures COLONOSCOPY DIAGNOSTIC COLONOSCOPY FLX DX W/COLLJ SPEC WHEN PFRMD Nia James, PATRICIA.DOUGH MAKER [address] [place] [address] [facility] [address] [place] [address] Referral ID Status Reason Start Date Expiration Date V isits Requested Visits Authorized [id number] Closed Auto-Generate d Referral 04/01/2024 03/24/2025 1 1 [facility] Advance Directives No Advanced Directives Records FoundDocuments on File Type Date Recorded Patient Temperature Control Inspector Expl anation Advance Directive(s) 05/13/2025 12:02 PM Date Activated Date Inactivated Comments 05/01/2025 9:28 AM 05/02/2025 5:15 PM Question Answer Comments DNR Order Discussed With: Patient Date Activated Date Inactivated Comments 04/30/2025 1:28 PM 05/01/2025 9:28 AM Question Answer Comments Order Discussed With: Patient Date Activated Date Inactivated Comments 04/23/2025 9:33 AM 04/30/2025 1:28 PM Question Answer Comments DNR Order Discussed With: Patient Date Activated Date Inactivated Comments 04/22/2025 4:00 PM 04/23/2025 9:33 AM Question Answer Comments Order Discussed With: Patient Date Activated Date Inactivated Comments 04/18/2025 6:18 AM 04/22/2025 4:00 PM Question Answer Comments DNR Order Discussed With: Patient Documents on File Type Date Recorded Patient Temperature Control Inspector Expl anation Advance Directive(s) 06/22/2021 9:47 AM Advance Directive(s) 03/09/2021 6:34 PM Advance Directive(s) 03/15/2020 7:10 AM Advance Directive(s) 02/23/2020 11:11 AM Advance Directive(s) 12/04/2018 6:31 AM Advance Directive(s) 11/22/2017 9:25 AM Advance Directive Response Recorded Date/ Time Name of Medical Power of Spray Gun Striper [place] September 14, 2021 9:48am Advance Directives Yes October 11:51am Living Will Yes September 18 1:30am Power of Spray Gun Striper Yes September 18, 2021 1:30am Advance Directive Response Recorded Date/ Time Advance Directives Yes October 11:51am Living Will Yes September 18 1:30am Power of Spray Gun Striper Yes September 18, 2021 1:30am Advance Directive Response Recorded Date/ Time Name of Medical Power of Spray Gun Striper [place] March 24, 2022 1:04am Advance Directives Yes October 11:51am Living Will Yes March 24, 2022 1:04am Power of Spray Gun Striper Yes March 24 1:04am Advance Directive Response Recorded Date/ Time Name of Medical Power of Spray Gun Striper [facility] March 24, 2022 3:32am Advance Directives Yes October 11:51am Living Will Yes March 24, 2022 3:32am Power of Spray Gun Striper Yes March 24 3:32am Advance Directive Response Recorded Date/ Time Advance Directives Yes October 10:51am Living Will No August 28, 022 10:08am Power of Spray Gun Striper No August 28, 2022 10:08am Advance Directive Response Recorded Date/ Time Name of Medical Power of Spray Gun Striper [facility] November 01, 2022 9:38am Advance Directives Yes October 10:51am Living Will Yes November 01 023 9:38am Power of Spray Gun Striper Yes November 01, 2022 9:38am Advance Directive Response Recorded Date/ Time Name of Medical Power of Spray Gun Striper [facility] November 01, 2022 3:47pm Advance Directives Yes October 10:51am Living Will Yes November 01, 023 3:47pm Power of Spray Gun Striper Yes November 01, 2022 3:47pm Advance Directive Response Recorded Date/ Time Name of Medical Power of Spray Gun Striper [facility] November 01, 2022 4:47pm Advance Directives Yes October 11:51am Living Will Yes November 01, 023 4:47pm Power of Spray Gun Striper Yes November 01, 2022 4:47pm Advance Directive Response Recorded Date/ Time Advance Directives Yes October 11:51am Living Will No March 13, 2023 1 0:28pm Power of Spray Gun Striper No March 13, 2023 10:28pm Advance Directive Response Recorded Date/ Time Living Will No March 13, 2023 1 0:28pm Power of Spray Gun Striper No March 13, 2023 10:28pm Living Will Yes November 19, 2024 2:23pm Power of Spray Gun Striper Yes November 19 2:23pm Name of Medical Power of Spray Gun Striper [place]ing [place] November 19, 2024 2:23pm Advance Directives Yes October 11:51am Advance Directive Response Recorded Date/ Time Do you have a Healthcare Pow er of Spray Gun Striper? Yes January 26, 2025 4:27pm Living Will Yes November 19, 2024 2:23pm Do you have a Healthcare Pow er of Spray Gun Striper? Yes November 19, 2024 2:23pm Name of Medical Power of Spray Gun Striper Ying Trinh November 19, 2024 2:23pm Advance Directives Yes October 11:51am Date Activated Date Inactivated Comments 01/27/2025 6:59 AM 01/29/2025 7:09 PM Question Answer Comments Full Code Order Discussed With: Patient Advance Directive Response Recorded Date/ Time Do you have a Healthcare Pow er of Spray Gun Striper? Yes January 26, 2025 4:27pm Do you have a Healthcare Pow er of Spray Gun Striper? No February 07, 2025 3:54pm Living Will Yes November 19, 2024 2:23pm Do you have a Healthcare Pow er of Spray Gun Striper? Yes November 19, 2024 2:23pm Name of Medical Power of Spray Gun Striper Ying [place]h November 19, 2024 2:23pm Advance Directives Yes October 11:51am Advance Directive Response Recorded Date/ Time Do you have a Healthcare Pow er of Spray Gun Striper? Yes January 26, 2025 4:27pm Do you have a Healthcare Pow er of Spray Gun Striper? No February 07, 2025 3:54pm Living Will Yes November 19, 2024 2:23pm Do you have a Healthcare Pow er of Spray Gun Striper? Yes November 19, 2024 2:23pm Name of Medical Power of Spray Gun Striper Ying Trinh November 19, 2024 2:23pm Do you have a Healthcare Pow er of Spray Gun Striper? No March 10, 2025 11:29am Advance Directives Yes October 11:51am Advance Directive Response Recorded Date/ Time Do you have a Healthcare Power of Spray Gun Striper? Yes January 26, 2025 4:27pm Do you have a Healthcare Power of Spray Gun Striper? No February 07, 2025 3:54pm Do you have a Healthcare Power of Spray Gun Striper? Yes April 04, 2025 11:10am Do you have a Healthcare Power of Spray Gun Striper? No March 10, 2025 11:29am Advance Directives Yes October 11:51am Advance Directive Response Recorded Date/ Time Do you have a Healthcare Power of Spray Gun Striper? Yes January 26, 2025 4:27pm Do you have a Healthcare Power of Spray Gun Striper? No February 07, 2025 3:54pm Do you have a Healthcare Power of Spray Gun Striper? Yes April 04, 2025 11:10am Do you have a Healthcare Power of Spray Gun Striper? No March 10, 2025 11:29am Do you have a Healthcare Power of Spray Gun Striper? No April 14, 2025 5:29pm Advance Directives Yes October 11:51am Advance Directive Response Recorded Date/ Time Do you have a Healthcare Power of Spray Gun Striper? Yes January 26, 2025 4:27pm Do you have a Healthcare Power of Spray Gun Striper? No February 07, 2025 3:54pm Do you have a Healthcare Power of Spray Gun Striper? Yes April 04, 2025 11:10am Do you have a Healthcare Power of Spray Gun Striper? No March 10, 2025 11:29am Do you have a Healthcare Power of Spray Gun Striper? No April 15, 2025 12:44pm Advance Directives Yes October 11:51am Date Activated Date Inactivated Comments 04/18/2025 6:18 AM Date Activated Date Inactivated Comments 01/27/2025 6:59 AM 01/29/2025 7:09 PM Question Answer Comments Full Code Order Discussed With: Patient Documents on File Type Date Recorded Patient Temperature Control Inspector Expl anation Advance Directive(s) 05/13/2025 12:02 PM Date Activated Date Inactivated Comments 05/01/2025 9:28 AM 05/02/2025 5:15 PM Question Answer Comments DNR Order Discussed With: Patient Date Activated Date Inactivated Comments 04/30/2025 1:28 PM 05/01/2025 9:28 AM Question Answer Comments Order Discussed With: Patient Date Activated Date Inactivated Comments 04/23/2025 9:33 AM 04/30/2025 1:28 PM Question Answer Comments DNR Order Discussed With: Patient Date Activated Date Inactivated Comments 04/22/2025 4:00 PM 04/23/2025 9:33 AM Question Answer Comments Order Discussed With: Patient Date Activated Date Inactivated Comments 04/18/2025 6:18 AM 04/22/2025 4:00 PM Question Answer Comments DNR Order Discussed With: Patient Chief Complaint and Reason for Visit Chief [...] Renal 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 Essential hypertension [...] Renal 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 Essential hypertension [...] Renal 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 Essential hypertension [...] Renal 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 Essential hypertension [...] fat layer exposed Atherosclerotic heart disease of [place] coronary artery without angina pectoris Non-pressure chronic [...] fat layer exposed Atherosclerotic heart disease of [place] coronary artery without angina pectoris Non-pressure chronic [...] for Visit Atherosclerotic hear t disease of [place] coronary artery without angina pectoris Non-pressure chronic [...] with diabetic polyneuropathy Atherosclerotic heart disease of [place] coronary artery without angina pectoris Diabetic foot ulcer [id number] History of partial ray amputation of fifth [...] with diabetic polyneuropathy Atherosclerotic heart disease of [place] coronary artery without angina pectoris Diabetic foot ulcer Obesity (BMI 30-39.9) Type 2 diabetes mellitus with diabetic polyneuropathy [id number] History of partial ray amputation of fifth [...] with diabetic polyneuropathy Atherosclerotic heart disease of [place] coronary artery without angina pectoris Diabetic foot ulcer Obesity (BMI 30-39.9) Type 2 diabetes mellitus with diabetic polyneuropathy [id number] 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 Diabetic foot ulcer Type 2 diabetes mellitus with diabetic polyneuropathy [id number] History of partial ray amputation of fifth [...] with diabetic polyneuropathy Atherosclerotic heart disease of [place] coronary artery without angina pectoris Diabetic foot ulcer Obesity (BMI 30-39.9) Type 2 diabetes mellitus with diabetic polyneuropathy [id number] 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 Diabetic foot ulcer Type 2 diabetes mellitus with diabetic polyneuropathy [id number] History of partial ray amputation of fifth [...] stage 4 (severe) Atherosclerotic heart disease of [place] coronary artery without angina pectoris Chronic renal [...] Renal 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 Diabetic foot ulcer Obesity (BMI 30-39.9) Type 2 diabetes mellitus with diabetic polyneuropathy [id number] 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 Diabetic foot ulcer Type 2 diabetes mellitus with diabetic polyneuropathy [id number] History of partial ray amputation of fifth [...] stage 4 (severe) Atherosclerotic heart disease of [place] coronary artery without angina pectoris Chronic renal failure, stage 4 (severe) Diabetic nephropathy Non-pressure chronic ulcer of other part of left foot with necrosis of bone Other specified peripheral vascular diseases Chief Complaint WOUND/PVD MULTIPLE T OE ULCERS 6 wk FU WOUND/PVD MULTIPLE TOE ULCERS wound wound PREOP wound wound wound E ORDER 2 M FU Reason for Visit [id number] History of partial ray amputation of fifth [...] stage 4 (severe) Atherosclerotic heart disease of [place] coronary artery without angina pectoris Chronic renal [...] Renal 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 Chief Complaint 2 M FU 9 M FU 2.5 M FU E ORDERS Reason for Visit Obesity (BMI 30-39.9 ) Polyneuropathy Type 2 diabetes mellitus with diabetic polyneuropathy Renal 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 Chronic renal failure, stage 4 (severe) Hypertension Obesity (BMI 30-39.9) Type 2 diabetes mellitus with hyperglycemia Chief Complaint 2 M FU 9 M FU 2.5 M FU E ORDERS ELEVATED LIVER ENZYMES Reason for Visit Obesity (BMI 30-39.9 ) Polyneuropathy Type 2 diabetes mellitus with diabetic polyneuropathy Renal 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 Chronic renal [...] m INFECTION March 10, 2025 11:26 am Chief Complaint Admit Date hyperglycemia January 26, 2025 3:46p m URINE BAG LEAKING February 07, 2025 1:09p m INFECTION March 10, 2025 11:26 am neuro April 04, 2025 11:0 3am Chief Complaint Admit Date hyperglycemia January 26, 2025 3:46p m URINE BAG LEAKING February 07, 2025 1:09p m INFECTION March 10, 2025 11:26 am neuro April 04, 2025 11:0 3am ACUTE PYELONEPHRITIS,KIDNEY STONE W/HYDR ONEPHROSIS April 15, 2025 10:06am Reason for Visit Admit Date Hydronephrosis with urinary obstruction due to ureteral calculus April 15, 2025 10:06am Chief Complaint Admit Date hyperglycemia January 26, 2025 3:46p m URINE BAG LEAKING February 07, 2025 1:09p m INFECTION March 10, 2025 11:26 am neuro April 04, 2025 11:0 3am ACUTE PYELONEPHRITIS,KIDNEY STONE W/HYDR ONEPHROSIS April 15, 2025 10:06am ACUTE PYELONEPHRITIS,KIDNEY STONE W/HYDR ONEPHROSIS April 16, 2025 2:26pm ACUTE PYELONEPHRITIS,KIDNEY STONE W/HYDR ONEPHROSIS April 17, 2025 11:34am Reason for Visit Admit Date Acute pyelonephritis due to bacteria Apr ust 2024 10:06am Hydronephrosis with urinary obstruction due to ureteral calculus April 15, 2025 10:06am Kidney transplant recipient April 15, 2025 10:06am Staphylococcus aureus bacteremia April 15, 2025 10:06am Acute on chronic renal insufficiency Apr 10:06am Family History No Family History Records Found [...] Referred By Carloz alarcon Referred To Contact Endocrinology Diagnoses Controlled type 2 diabetes mellitus without complication, without long-term current use of insulin (HCC) Procedures CONSULT TO ENDOCRINOLOGY OFFICE/OUTPATIENT [facility] 60-74 MINUTES Zaida Gaston MD [address] [place] [address] Referral ID Status Reason Start Date Expiration Date Visits Requested Visits Authorized [id number] Pending Review PCP Requested Referral 2 07/31/2023 1 1 Specialty Diagnoses / Procedures Referred By Carloz alarcon Referred To Contact Alana Kent APRN.CNP [address] [place] [address] Referral ID Status Reason Start Date Expiration Date Visits Re quested Visits Authorized [id number] Closed 1 1 Specialty Diagnoses / Procedures Referred By Carloz alarcon Referred To Contact Urology Diagnoses Erectile dysfunction, unspecified erectile dysfunction type Procedures CONSULT TO UROLOGY OFFICE/OUTPATIENT NEW HIGH MDM 60-74 MINUTES Alana Kent APRN.DOUGH MAKER [address] [place] [address] Referral ID Status Reason Start Date Expiration Date Visits Requested Visits Authorized [id number] Authorized PCP Requested Referral 07/15/2023 07/14/2024 1 1 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) Colon cancer screening Type 1 diabetes mellitus on insulin therapy (HCC) Kidney transplant recipient Procedures CONSULT TO GENERAL SURGERY OFFICE/OUTPATIENT NEW HIGH MDM 60 MINUTES 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 APRN.DOUGH MAKER [address] [place] [address] Referral ID Status Reason Start Date Expiration Date Visits Requested Visits Authorized [id number] Authorized PCP Requested Referral 01/22/2024 01/21/2025 1 1 Summary Purpose Additional Source Comments Source Comments (unrecognize d section and content) In the event this informatio n is protected by the Federal Confidentiality of Alcohol and Drug Abuse Patient Records regulations: The Federal rules restrict any use of the information to criminally investigate or prosecute any alcohol or drug abuse patient.[facility]In the event this information is protected by the Federal Confidentiality of Alcohol and Drug Abuse Patient Records regulations: The Federal rules restrict any use of the information to criminally investigate or prosecute any alcohol or drug abuse patient.[facility]In the event this information is protected by the Federal Confidentiality of Alcohol and Drug Abuse Patient Records regulations: The Federal rules restrict any use of the information to criminally investigate or prosecute any alcohol or drug abuse patient.[facility] HospitalIn the event this information is protected by the Federal Confidentiality of Alcohol and Drug Abuse Patient Records regulations: The Federal rules restrict any use of the information to criminally investigate or prosecute any alcohol or drug abuse patient.[facility] HospitalIn the event this information is protected by the Federal Confidentiality of Alcohol and Drug Abuse Patient Records regulations: The Federal rules restrict any use of the information to criminally investigate or prosecute any alcohol or drug abuse patient.[facility] HospitalIn the event this information is protected by the Federal Confidentiality of Alcohol and Drug Abuse Patient Records regulations: The Federal rules restrict any use of the information to criminally investigate or prosecute any alcohol or drug abuse patient.[facility] HospitalIn the event this information is protected by the Federal Confidentiality of Alcohol and Drug Abuse Patient Records regulations: The Federal rules restrict any use of the information to criminally investigate or prosecute any alcohol or drug abuse patient.[facility] HospitalIn the event this information is protected by the Federal Confidentiality of Alcohol and Drug Abuse Patient Records regulations: The Federal rules restrict any use of the information to criminally investigate or prosecute any alcohol or drug abuse patient.[facility] HospitalIn the event this information is protected by the Federal Confidentiality of Alcohol and Drug Abuse Patient Records regulations: The Federal rules restrict any use of the information to criminally investigate or prosecute any alcohol or drug abuse patient.[facility] HospitalIn the event this information is protected by the Federal Confidentiality of Alcohol and Drug Abuse Patient Records regulations: The Federal rules restrict any use of the information to criminally investigate or prosecute any alcohol or drug abuse patient.[facility] HospitalIn the event this information is protected by the Federal Confidentiality of Alcohol and Drug Abuse Patient Records regulations: The Federal rules restrict any use of the information to criminally investigate or prosecute any alcohol or drug abuse patient.[facility] HospitalIn the event this information is protected by the Federal Confidentiality of Alcohol and Drug Abuse Patient Records regulations: The Federal rules restrict any use of the information to criminally investigate or prosecute any alcohol or drug abuse patient.[facility] HospitalIn the event this information is protected by the Federal Confidentiality of Alcohol and Drug Abuse Patient Records regulations: The Federal rules restrict any use of the information to criminally investigate or prosecute any alcohol or drug abuse patient.[facility] HospitalIn the event this information is protected by the Federal Confidentiality of Alcohol and Drug Abuse Patient Records regulations: The Federal rules restrict any use of the information to criminally investigate or prosecute any alcohol or drug abuse patient.[facility] HospitalIn the event this information is protected by the Federal Confidentiality of Alcohol and Drug Abuse Patient Records regulations: The Federal rules restrict any use of the information to criminally investigate or prosecute any alcohol or drug abuse patient.[facility] HospitalIn the event this information is protected by the Federal Confidentiality of Alcohol and Drug Abuse Patient Records regulations: The Federal rules restrict any use of the information to criminally investigate or prosecute any alcohol or drug abuse patient.[facility] HospitalIn the event this information is protected by the Federal Confidentiality of Alcohol and Drug Abuse Patient Records regulations: The Federal rules restrict any use of the information to criminally investigate or prosecute any alcohol or drug abuse patient.[facility] HospitalIn the event this information is protected by the Federal Confidentiality of Alcohol and Drug Abuse Patient Records regulations: The Federal rules restrict any use of the information to criminally investigate or prosecute any alcohol or drug abuse patient.[facility] HospitalIn the event this information is protected by the Federal Confidentiality of Alcohol and Drug Abuse Patient Records regulations: The Federal rules restrict any use of the information to criminally investigate or prosecute any alcohol or drug abuse patient.[facility] HospitalIn the event this information is protected by the Federal Confidentiality of Alcohol and Drug Abuse Patient Records regulations: The Federal rules restrict any use of the information to criminally investigate or prosecute any alcohol or drug abuse patient.[facility] HospitalIn the event this information is protected by the Federal Confidentiality of Alcohol and Drug Abuse Patient Records regulations: The Federal rules restrict any use of the information to criminally investigate or prosecute any alcohol or drug abuse patient.[facility] HospitalIn the event this information is protected by the Federal Confidentiality of Alcohol and Drug Abuse Patient Records regulations: The Federal rules restrict any use of the information to criminally investigate or prosecute any alcohol or drug abuse patient.[facility] HospitalIn the event this information is protected by the Federal Confidentiality of Alcohol and Drug Abuse Patient Records regulations: The Federal rules restrict any use of the information to criminally investigate or prosecute any alcohol or drug abuse patient.[facility] HospitalIn the event this information is protected by the Federal Confidentiality of Alcohol and Drug Abuse Patient Records regulations: The Federal rules restrict any use of the information to criminally investigate or prosecute any alcohol or drug abuse patient.[facility] HospitalIn the event this information is protected by the Federal Confidentiality of Alcohol and Drug Abuse Patient Records regulations: The Federal rules restrict any use of the information to criminally investigate or prosecute any alcohol or drug abuse patient.[facility] HospitalIn the event this information is protected by the Federal Confidentiality of Alcohol and Drug Abuse Patient Records regulations: The Federal rules restrict any use of the information to criminally investigate or prosecute any alcohol or drug abuse patient.[facility] HospitalIn the event this information is protected by the Federal Confidentiality of Alcohol and Drug Abuse Patient Records regulations: The Federal rules restrict any use of the information to criminally investigate or prosecute any alcohol or drug abuse patient.[facility] HospitalIn the event this information is protected by the Federal Confidentiality of Alcohol and Drug Abuse Patient Records regulations: The Federal rules restrict any use of the information to criminally investigate or prosecute any alcohol or drug abuse patient.[facility] HospitalIn the event this information is protected by the Federal Confidentiality of Alcohol and Drug Abuse Patient Records regulations: The Federal rules restrict any use of the information to criminally investigate or prosecute any alcohol or drug abuse patient.[facility] HospitalIn the event this information is protected by the Federal Confidentiality of Alcohol and Drug Abuse Patient Records regulations: The Federal rules restrict any use of the information to criminally investigate or prosecute any alcohol or drug abuse patient.[facility] HospitalIn the event this information is protected by the Federal Confidentiality of Alcohol and Drug Abuse Patient Records regulations: The Federal rules restrict any use of the information to criminally investigate or prosecute any alcohol or drug abuse patient.[facility] HospitalIn the event this information is protected by the Federal Confidentiality of Alcohol and Drug Abuse Patient Records regulations: The Federal rules restrict any use of the information to criminally investigate or prosecute any alcohol or drug abuse patient.[facility] HospitalIn the event this information is protected by the Federal Confidentiality of Alcohol and Drug Abuse Patient Records regulations: The Federal rules restrict any use of the information to criminally investigate or prosecute any alcohol or drug abuse patient.[facility] HospitalIn the event this information is protected by the Federal Confidentiality of Alcohol and Drug Abuse Patient Records regulations: The Federal rules restrict any use of the information to criminally investigate or prosecute any alcohol or drug abuse patient.[facility] HospitalIn the event this information is protected by the Federal Confidentiality of Alcohol and Drug Abuse Patient Records regulations: The Federal rules restrict any use of the information to criminally investigate or prosecute any alcohol or drug abuse patient.[facility] HospitalIn the event this information is protected by the Federal Confidentiality of Alcohol and Drug Abuse Patient Records regulations: The Federal rules restrict any use of the information to criminally investigate or prosecute any alcohol or drug abuse patient.[facility] HospitalIn the event this information is protected by the Federal Confidentiality of Alcohol and Drug Abuse Patient Records regulations: The Federal rules restrict any use of the information to criminally investigate or prosecute any alcohol or drug abuse patient.[facility] HospitalIn the event this information is protected by the Federal Confidentiality of Alcohol and Drug Abuse Patient Records regulations: The Federal rules restrict any use of the information to criminally investigate or prosecute any alcohol or drug abuse patient.[facility] HospitalIn the event this information is protected by the Federal Confidentiality of Alcohol and Drug Abuse Patient Records regulations: The Federal rules restrict any use of the information to criminally investigate or prosecute any alcohol or drug abuse patient.[facility] HospitalIn the event this information is protected by the Federal Confidentiality of Alcohol and Drug Abuse Patient Records regulations: The Federal rules restrict any use of the information to criminally investigate or prosecute any alcohol or drug abuse patient.[facility] HospitalIn the event this information is protected by the Federal Confidentiality of Alcohol and Drug Abuse Patient Records regulations: The Federal rules restrict any use of the information to criminally investigate or prosecute any alcohol or drug abuse patient.[facility] HospitalIn the event this information is protected by the Federal Confidentiality of Alcohol and Drug Abuse Patient Records regulations: The Federal rules restrict any use of the information to criminally investigate or prosecute any alcohol or drug abuse patient.[facility] HospitalIn the event this information is protected by the Federal Confidentiality of Alcohol and Drug Abuse Patient Records regulations: The Federal rules restrict any use of the information to criminally investigate or prosecute any alcohol or drug abuse patient.[facility] HospitalIn the event this information is protected by the Federal Confidentiality of Alcohol and Drug Abuse Patient Records regulations: The Federal rules restrict any use of the information to criminally investigate or prosecute any alcohol or drug abuse patient.[facility] HospitalIn the event this information is protected by the Federal Confidentiality of Alcohol and Drug Abuse Patient Records regulations: The Federal rules restrict any use of the information to criminally investigate or prosecute any alcohol or drug abuse patient.[facility] HospitalIn the event this information is protected by the Federal Confidentiality of Alcohol and Drug Abuse Patient Records regulations: The Federal rules restrict any use of the information to criminally investigate or prosecute any alcohol or drug abuse patient.[facility] HospitalIn the event this information is protected by the Federal Confidentiality of Alcohol and Drug Abuse Patient Records regulations: The Federal rules restrict any use of the information to criminally investigate or prosecute any alcohol or drug abuse patient.[facility] HospitalIn the event this information is protected by the Federal Confidentiality of Alcohol and Drug Abuse Patient Records regulations: The Federal rules restrict any use of the information to criminally investigate or prosecute any alcohol or drug abuse patient.[facility] HospitalIn the event this information is protected by the Federal Confidentiality of Alcohol and Drug Abuse Patient Records regulations: The Federal rules restrict any use of the information to criminally investigate or prosecute any alcohol or drug abuse patient.[facility] HospitalIn the event this information is protected by the Federal Confidentiality of Alcohol and Drug Abuse Patient Records regulations: The Federal rules restrict any use of the information to criminally investigate or prosecute any alcohol or drug abuse patient.[facility] HospitalIn the event this information is protected by the Federal Confidentiality of Alcohol and Drug Abuse Patient Records regulations: The Federal rules restrict any use of the information to criminally investigate or prosecute any alcohol or drug abuse patient.[facility] HospitalIn the event this information is protected by the Federal Confidentiality of Alcohol and Drug Abuse Patient Records regulations: The Federal rules restrict any use of the information to criminally investigate or prosecute any alcohol or drug abuse patient.[facility] HospitalIn the event this information is protected by the Federal Confidentiality of Alcohol and Drug Abuse Patient Records regulations: The Federal rules restrict any use of the information to criminally investigate or prosecute any alcohol or drug abuse patient.[facility] HospitalIn the event this information is protected by the Federal Confidentiality of Alcohol and Drug Abuse Patient Records regulations: The Federal rules restrict any use of the information to criminally investigate or prosecute any alcohol or drug abuse patient.[facility] HospitalIn the event this information is protected by the Federal Confidentiality of Alcohol and Drug Abuse Patient Records regulations: The Federal rules restrict any use of the information to criminally investigate or prosecute any alcohol or drug abuse patient.[facility] HospitalIn the event this information is protected by the Federal Confidentiality of Alcohol and Drug Abuse Patient Records regulations: The Federal rules restrict any use of the information to criminally investigate or prosecute any alcohol or drug abuse patient.[facility] HospitalIn the event this information is protected by the Federal Confidentiality of Alcohol and Drug Abuse Patient Records regulations: The Federal rules restrict any use of the information to criminally investigate or prosecute any alcohol or drug abuse patient.[facility] HospitalIn the event this information is protected by the Federal Confidentiality of Alcohol and Drug Abuse Patient Records regulations: The Federal rules restrict any use of the information to criminally investigate or prosecute any alcohol or drug abuse patient.[facility] HospitalIn the event this information is protected by the Federal Confidentiality of Alcohol and Drug Abuse Patient Records regulations: The Federal rules restrict any use of the information to criminally investigate or prosecute any alcohol or drug abuse patient.[facility] HospitalIn the event this information is protected by the Federal Confidentiality of Alcohol and Drug Abuse Patient Records regulations: The Federal rules restrict any use of the information to criminally investigate or prosecute any alcohol or drug abuse patient.[facility] HospitalIn the event this information is protected by the Federal Confidentiality of Alcohol and Drug Abuse Patient Records regulations: The Federal rules restrict any use of the information to criminally investigate or prosecute any alcohol or drug abuse patient.[facility] HospitalIn the event this information is protected by the Federal Confidentiality of Alcohol and Drug Abuse Patient Records regulations: The Federal rules restrict any use of the information to criminally investigate or prosecute any alcohol or drug abuse patient.[facility] HospitalIn the event this information is protected by the Federal Confidentiality of Alcohol and Drug Abuse Patient Records regulations: The Federal rules restrict any use of the information to criminally investigate or prosecute any alcohol or drug abuse patient.[facility] HospitalIn the event this information is protected by the Federal Confidentiality of Alcohol and Drug Abuse Patient Records regulations: The Federal rules restrict any use of the information to criminally investigate or prosecute any alcohol or drug abuse patient.[facility] HospitalIn the event this information is protected by the Federal Confidentiality of Alcohol and Drug Abuse Patient Records regulations: The Federal rules restrict any use of the information to criminally investigate or prosecute any alcohol or drug abuse patient.[facility] HospitalIn the event this information is protected by the Federal Confidentiality of Alcohol and Drug Abuse Patient Records regulations: The Federal rules restrict any use of the information to criminally investigate or prosecute any alcohol or drug abuse patient.[facility] HospitalIn the event this information is protected by the Federal Confidentiality of Alcohol and Drug Abuse Patient Records regulations: The Federal rules restrict any use of the information to criminally investigate or prosecute any alcohol or drug abuse patient.[facility] HospitalIn the event this information is protected by the Federal Confidentiality of Alcohol and Drug Abuse Patient Records regulations: The Federal rules restrict any use of the information to criminally investigate or prosecute any alcohol or drug abuse patient.[facility] HospitalIn the event this information is protected by the Federal Confidentiality of Alcohol and Drug Abuse Patient Records regulations: The Federal rules restrict any use of the information to criminally investigate or prosecute any alcohol or drug abuse patient.[facility] HospitalIn the event this information is protected by the Federal Confidentiality of Alcohol and Drug Abuse Patient Records regulations: The Federal rules restrict any use of the information to criminally investigate or prosecute any alcohol or drug abuse patient.[facility] HospitalIn the event this information is protected by the Federal Confidentiality of Alcohol and Drug Abuse Patient Records regulations: The Federal rules restrict any use of the information to criminally investigate or prosecute any alcohol or drug abuse patient.[facility] HospitalIn the event this information is protected by the Federal Confidentiality of Alcohol and Drug Abuse Patient Records regulations: The Federal rules restrict any use of the information to criminally investigate or prosecute any alcohol or drug abuse patient.[facility] HospitalIn the event this information is protected by the Federal Confidentiality of Alcohol and Drug Abuse Patient Records regulations: The Federal rules restrict any use of the information to criminally investigate or prosecute any alcohol or drug abuse patient.[facility] HospitalIn the event this information is protected by the Federal Confidentiality of Alcohol and Drug Abuse Patient Records regulations: The Federal rules restrict any use of the information to criminally investigate or prosecute any alcohol or drug abuse patient.[facility] HospitalIn the event this information is protected by the Federal Confidentiality of Alcohol and Drug Abuse Patient Records regulations: The Federal rules restrict any use of the information to criminally investigate or prosecute any alcohol or drug abuse patient.[facility] HospitalIn the event this information is protected by the Federal Confidentiality of Alcohol and Drug Abuse Patient Records regulations: The Federal rules restrict any use of the information to criminally investigate or prosecute any alcohol or drug abuse patient.[facility] HospitalIn the event this information is protected by the Federal Confidentiality of Alcohol and Drug Abuse Patient Records regulations: The Federal rules restrict any use of the information to criminally investigate or prosecute any alcohol or drug abuse patient.[facility] HospitalIn the event this information is protected by the Federal Confidentiality of Alcohol and Drug Abuse Patient Records regulations: The Federal rules restrict any use of the information to criminally investigate or prosecute any alcohol or drug abuse patient.[facility] HospitalIn the event this information is protected by the Federal Confidentiality of Alcohol and Drug Abuse Patient Records regulations: The Federal rules restrict any use of the information to criminally investigate or prosecute any alcohol or drug abuse patient.[facility] HospitalIn the event this information is protected by the Federal Confidentiality of Alcohol and Drug Abuse Patient Records regulations: The Federal rules restrict any use of the information to criminally investigate or prosecute any alcohol or drug abuse patient.[facility] HospitalIn the event this information is protected by the Federal Confidentiality of Alcohol and Drug Abuse Patient Records regulations: The Federal rules restrict any use of the information to criminally investigate or prosecute any alcohol or drug abuse patient.[facility] HospitalIn the event this information is protected by the Federal Confidentiality of Alcohol and Drug Abuse Patient Records regulations: The Federal rules restrict any use of the information to criminally investigate or prosecute any alcohol or drug abuse patient.[facility] HospitalIn the event this information is protected by the Federal Confidentiality of Alcohol and Drug Abuse Patient Records regulations: The Federal rules restrict any use of the information to criminally investigate or prosecute any alcohol or drug abuse patient.[facility] HospitalIn the event this information is protected by the Federal Confidentiality of Alcohol and Drug Abuse Patient Records regulations: The Federal rules restrict any use of the information to criminally investigate or prosecute any alcohol or drug abuse patient.[facility] HospitalIn the event this information is protected by the Federal Confidentiality of Alcohol and Drug Abuse Patient Records regulations: The Federal rules restrict any use of the information to criminally investigate or prosecute any alcohol or drug abuse patient.[facility] HospitalIn the event this information is protected by the Federal Confidentiality of Alcohol and Drug Abuse Patient Records regulations: The Federal rules restrict any use of the information to criminally investigate or prosecute any alcohol or drug abuse patient.[facility] HospitalIn the event this information is protected by the Federal Confidentiality of Alcohol and Drug Abuse Patient Records regulations: The Federal rules restrict any use of the information to criminally investigate or prosecute any alcohol or drug abuse patient.[facility] HospitalIn the event this information is protected by the Federal Confidentiality of Alcohol and Drug Abuse Patient Records regulations: The Federal rules restrict any use of the information to criminally investigate or prosecute any alcohol or drug abuse patient.[facility] HospitalIn the event this information is protected by the Federal Confidentiality of Alcohol and Drug Abuse Patient Records regulations: The Federal rules restrict any use of the information to criminally investigate or prosecute any alcohol or drug abuse patient.[facility] HospitalIn the event this information is protected by the Federal Confidentiality of Alcohol and Drug Abuse Patient Records regulations: The Federal rules restrict any use of the information to criminally investigate or prosecute any alcohol or drug abuse patient.[facility] HospitalIn the event this information is protected by the Federal Confidentiality of Alcohol and Drug Abuse Patient Records regulations: The Federal rules restrict any use of the information to criminally investigate or prosecute any alcohol or drug abuse patient.[facility] HospitalIn the event this information is protected by the Federal Confidentiality of Alcohol and Drug Abuse Patient Records regulations: The Federal rules restrict any use of the information to criminally investigate or prosecute any alcohol or drug abuse patient.[facility] HospitalIn the event this information is protected by the Federal Confidentiality of Alcohol and Drug Abuse Patient Records regulations: The Federal rules restrict any use of the information to criminally investigate or prosecute any alcohol or drug abuse patient.[facility] HospitalIn the event this information is protected by the Federal Confidentiality of Alcohol and Drug Abuse Patient Records regulations: The Federal rules restrict any use of the information to criminally investigate or prosecute any alcohol or drug abuse patient.[facility] HospitalIn the event this information is protected by the Federal Confidentiality of Alcohol and Drug Abuse Patient Records regulations: The Federal rules restrict any use of the information to criminally investigate or prosecute any alcohol or drug abuse patient.[facility] HospitalIn the event this information is protected by the Federal Confidentiality of Alcohol and Drug Abuse Patient Records regulations: The Federal rules restrict any use of the information to criminally investigate or prosecute any alcohol or drug abuse patient.[facility] HospitalIn the event this information is protected by the Federal Confidentiality of Alcohol and Drug Abuse Patient Records regulations: The Federal rules restrict any use of the information to criminally investigate or prosecute any alcohol or drug abuse patient.[facility] HospitalIn the event this information is protected by the Federal Confidentiality of Alcohol and Drug Abuse Patient Records regulations: The Federal rules restrict any use of the information to criminally investigate or prosecute any alcohol or drug abuse patient.[facility] HospitalIn the event this information is protected by the Federal Confidentiality of Alcohol and Drug Abuse Patient Records regulations: The Federal rules restrict any use of the information to criminally investigate or prosecute any alcohol or drug abuse patient.[facility] HospitalIn the event this information is protected by the Federal Confidentiality of Alcohol and Drug Abuse Patient Records regulations: The Federal rules restrict any use of the information to criminally investigate or prosecute any alcohol or drug abuse patient.[facility] HospitalIn the event this information is protected by the Federal Confidentiality of Alcohol and Drug Abuse Patient Records regulations: The Federal rules restrict any use of the information to criminally investigate or prosecute any alcohol or drug abuse patient.[facility] HospitalIn the event this information is protected by the Federal Confidentiality of Alcohol and Drug Abuse Patient Records regulations: The Federal rules restrict any use of the information to criminally investigate or prosecute any alcohol or drug abuse patient.[facility] HospitalIn the event this information is protected by the Federal Confidentiality of Alcohol and Drug Abuse Patient Records regulations: The Federal rules restrict any use of the information to criminally investigate or prosecute any alcohol or drug abuse patient.[facility] HospitalIn the event this information is protected by the Federal Confidentiality of Alcohol and Drug Abuse Patient Records regulations: The Federal rules restrict any use of the information to criminally investigate or prosecute any alcohol or drug abuse patient.[facility] HospitalIn the event this information is protected by the Federal Confidentiality of Alcohol and Drug Abuse Patient Records regulations: The Federal rules restrict any use of the information to criminally investigate or prosecute any alcohol or drug abuse patient.[facility] HospitalIn the event this information is protected by the Federal Confidentiality of Alcohol and Drug Abuse Patient Records regulations: The Federal rules restrict any use of the information to criminally investigate or prosecute any alcohol or drug abuse patient.[facility] HospitalIn the event this information is protected by the Federal Confidentiality of Alcohol and Drug Abuse Patient Records regulations: The Federal rules restrict any use of the information to criminally investigate or prosecute any alcohol or drug abuse patient.[facility] HospitalIn the event this information is protected by the Federal Confidentiality of Alcohol and Drug Abuse Patient Records regulations: The Federal rules restrict any use of the information to criminally investigate or prosecute any alcohol or drug abuse patient.[facility] HospitalIn the event this information is protected by the Federal Confidentiality of Alcohol and Drug Abuse Patient Records regulations: The Federal rules restrict any use of the information to criminally investigate or prosecute any alcohol or drug abuse patient.[facility] HospitalIn the event this information is protected by the Federal Confidentiality of Alcohol and Drug Abuse Patient Records regulations: The Federal rules restrict any use of the information to criminally investigate or prosecute any alcohol or drug abuse patient.[facility] HospitalIn the event this information is protected by the Federal Confidentiality of Alcohol and Drug Abuse Patient Records regulations: The Federal rules restrict any use of the information to criminally investigate or prosecute any alcohol or drug abuse patient.[facility] HospitalIn the event this information is protected by the Federal Confidentiality of Alcohol and Drug Abuse Patient Records regulations: The Federal rules restrict any use of the information to criminally investigate or prosecute any alcohol or drug abuse patient.[facility] HospitalIn the event this information is protected by the Federal Confidentiality of Alcohol and Drug Abuse Patient Records regulations: The Federal rules restrict any use of the information to criminally investigate or prosecute any alcohol or drug abuse patient.[facility] HospitalIn the event this information is protected by the Federal Confidentiality of Alcohol and Drug Abuse Patient Records regulations: The Federal rules restrict any use of the information to criminally investigate or prosecute any alcohol or drug abuse patient.[facility] HospitalIn the event this information is protected by the Federal Confidentiality of Alcohol and Drug Abuse Patient Records regulations: The Federal rules restrict any use of the information to criminally investigate or prosecute any alcohol or drug abuse patient.[facility] Reason for Visit (unrecogniz ed section and content) Reason Comments Renal Txp Follow Up Reason Comments Research IRB# [id number] Reason Comments Refill Request Reason Comments Refill [...] Date Comments Refill Request 07/19/2022 Reason Comments [facility] requesting lab results Reason Comments Release [...] type Procedures CONSULT TO UROLOGY OFFICE/OUTPATIENT NEW HIGH MDM 60-74 MINUTES Alana Kent APRN.DOUGH MAKER [address] [place] [address] Referral ID Status Reason Start Date Expiration Date V isits Requested Visits Authorized [id number] Closed PCP Requested Referral 07/15/2023 07/14/2024 1 [...] tion. 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) Colon cancer screening Type 1 diabetes mellitus on insulin therapy (HCC) Kidney transplant recipient Procedures CONSULT TO GENERAL SURGERY OFFICE/OUTPATIENT NEW HIGH MDM 60 MINUTES 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 APRN.DOUGH MAKER [address] [place] [address] Referral ID Status Reason Start Date Expiration Date V isits Requested Visits Authorized [id number] Closed PCP Requested Referral 01/22/2024 01/21/2025 1 1 Reason Comments Medication Problem Reason Comments Patient Update Request for new Dexcom Reason Comments Recheck Reason Onset Date Comments Population Health Navigation Outreach 07/13/2024 [facility] PCSA Reason Onset Date Comments Refill Request 07/13/2024 Reason Onset Date Comments Refill Request 07/31/2024 Reason Onset Date Comments Population Health Navigation Outreach 09/08/2024 [facility] WORKBENCH MEI PCSA Reason Comments Transition Of Care Reason Comments ER F/U [facility] 01/27/25-01/31/25 oliguric acute kidney injury and flank pain Reason Comments Missed Appointment Primary care resched ule Reason Comments IR Outpatient Tube Appointment Request Reason Comments Fish Checker - Other Reason Comments New Patient Specialty Diagnoses / Procedures Referred By Contac t Referred To Contact Diagnoses Pyelonephritis Procedures N/A [facility] [address] [place] [address] Referral ID Status Reason Start Date Expiration Date Visits Re quested Visits Authorized [id number] 1 1 Care Teams (unrecognized sec tion and content) Drawing In Machine Tender Helper Relationship Specialty Start Date End Date Zaida Gaston MD [address] [facility] [place] [address] PCP - General Internal Medicine 04/26/16 Loida Montiel I, DO [address] [facility] [address] [place] [address] Specialty Pet Resort Concierge Nephrology 06/11/18 Heena Adams [address] [facility] [address] [place] [address] Specialty Pet Resort Concierge Endocrinology 06/11/18 Satish Phan MD [address] [facility] [place] [address] Specialty Pet Resort Concierge General Surgery 07/25/18 Drawing In Machine Tender Helper Relationship Specialty Start Date End Date Zaida Gaston MD [address] [place] [place] [address] PCP - General Internal Medicine 04/26/16 Loida Montiel I, DO [address] [facility] [address] [place] [address] Specialty Pet Resort Concierge Nephrology 06/11/18 Heena Adams [address] [facility] [address] [place] [address] Specialty Pet Resort Concierge Endocrinology 06/11/18 Satish Phan MD [address] [facility] [place] [address] Specialty Pet Resort Concierge General Surgery 07/25/18 Drawing In Machine Tender Helper Relationship Specialty Start Date End Date Zaida Gaston MD [address] [place] [place] [address] PCP - General Internal Medicine 04/26/16 Loida Montiel I, DO [address] [place] [address] [place] [address] Specialty Pet Resort Concierge Nephrology 06/11/18 Heena Adams [address] [facility] [address] [place] [address] Specialty Pet Resort Concierge Endocrinology 06/11/18 Satish Phan MD [address] [place] [address] Specialty Pet Resort Concierge General Surgery 07/25/18 Drawing In Machine Tender Helper Relationship Specialty Start Date End Date Zaida Gaston MD [address] [facility] [place] [place] [address] PCP - General Internal Medicine 04/26/16 Loida Montiel I, DO [address] [facility] [address] [place] [address] Specialty Pet Resort Concierge Nephrology 06/11/18 Heena Adams [address] [facility] [address] [place] [address] Specialty Pet Resort Concierge Endocrinology 06/11/18 Satish Phan MD [address] [facility] [place] [address] Specialty Pet Resort Concierge General Surgery 07/25/18 Drawing In Machine Tender Helper Relationship Specialty Start Date End Date Zaida Gaston MD [address] [facility] [place] [place] [address] PCP - General Internal Medicine 04/26/16 Loida Montiel I, DO [address] [place] [address] [place] [address] Specialty Pet Resort Concierge Nephrology 06/11/18 Heena Adams [address] [facility] [address] [place] [address] Specialty Pet Resort Concierge Endocrinology 06/11/18 Satish Phan MD [address] [place] [address] Specialty Pet Resort Concierge General Surgery 07/25/18 Drawing In Machine Tender Helper Relationship Specialty Start Date End Date Zaida Gaston MD [address] [facility] [place] [place] [address] PCP - General Internal Medicine 04/26/16 Loida Montiel I, DO [address] [facility] [address] [place] [address] Specialty Pet Resort Concierge Nephrology 06/11/18 Heena Adams [address] [facility] [address] [place] [address] Specialty Pet Resort Concierge Endocrinology 06/11/18 Satish Phan MD [address] [facility] [place] [address] Specialty Pet Resort Concierge General Surgery 07/25/18 Drawing In Machine Tender Helper Relationship Specialty Start Date End Date Zaida Gaston MD [address] [facility] [place] [place] [address] PCP - General Internal Medicine 04/26/16 Loida Montiel I, DO [address] [facility] [address] [place] [address] Specialty Pet Resort Concierge Nephrology 06/11/18 Heena Adams [address] [facility] [address] [place] [address] Specialty Pet Resort Concierge Endocrinology 06/11/18 Satish Phan MD [address] [facility] [place] [address] Specialty Pet Resort Concierge General Surgery 07/25/18 Drawing In Machine Tender Helper Relationship Specialty Start Date End Date Zaida Gaston MD [address] [facility] [place] [place] [address] PCP - General Internal Medicine 04/26/16 Loida Montiel I, DO [address] [place] [address] [place] [address] Specialty Pet Resort Concierge Nephrology 06/11/18 Heena Adams [address] [facility] [address] [place] [address] Specialty Pet Resort Concierge Endocrinology 06/11/18 Satish Phan MD [address] [place] [address] Specialty Pet Resort Concierge General Surgery 07/25/18 Drawing In Machine Tender Helper Relationship Specialty Start Date End Date Zaida Gaston MD [address] [facility] [place] [place] [address] PCP - General Internal Medicine 04/26/16 Loida Montiel I, [address] [place] [address] [place] [address] Specialty Pet Resort Concierge Nephrology 06/11/18 Heena Adams [address] [facility] [address] [place] [address] Specialty Pet Resort Concierge Endocrinology 06/11/18 Satish Phan MD [address] [place] [address] Specialty Pet Resort Concierge General Surgery 07/25/18 Drawing In Machine Tender Helper Relationship Specialty Start Date End Date Zaida Gaston MD [address] [facility] [place] [address] PCP - General Internal Medicine 04/26/16 Loida Montiel I, DO [address] [facility] [address] [place] [address] Specialty Pet Resort Concierge Nephrology 06/11/18 Heena Adams [address] [facility] [address] [place] [address] Specialty Pet Resort Concierge Endocrinology 06/11/18 Satish Phan MD [address] [place] [address] Specialty Pet Resort Concierge General Surgery 07/25/18 Drawing In Machine Tender Helper Relationship Specialty Start Date End Date Zaida Gaston MD [address] [facility] [place] [place] [address] PCP - General Internal Medicine 04/26/16 Loida Montiel I, DO [address] [facility] [address] [place] [address] Specialty Pet Resort Concierge Nephrology 06/11/18 Heena Adams [address] [facility] [address] [place] [address] Specialty Pet Resort Concierge Endocrinology 06/11/18 Satish Phan MD [address] [facility] [address] Specialty Pet Resort Concierge General Surgery 07/25/18 GassawayVerna, [facility] [address] [place] [address] Pharmacist Pharmacy 08/23/22 Drawing In Machine Tender Helper Relationship Specialty Start Date End Date Zaida Gaston MD [address] [facility] [place] [address] PCP - General Internal Medicine 04/26/16 Loida Montiel I, DO [address] [facility] [address] [place] [address] Specialty Pet Resort Concierge Nephrology 06/11/18 Heena Adams [address] [facility] [address] [place] [address] Specialty Pet Resort Concierge Endocrinology 06/11/18 Satish Phan MD [address] [facility] [place] [address] Specialty Pet Resort Concierge General Surgery 07/25/18 [place] [address] [place] [address] Pharmacist Pharmacy 08/23/22 Drawing In Machine Tender Helper Relationship Specialty Start Date End Date Zaida Gaston MD [address] [place] [address] PCP - General Internal Medicine 04/26/16 Loida Montiel I, DO [address] [place] [address] Specialty Pet Resort Concierge Nephrology 06/11/18 Heena Adams [address] [facility] [address] [place] [address] Specialty Pet Resort Concierge Endocrinology 06/11/18 Satish Phan MD [address] [facility] [place] [address] Specialty Pet Resort Concierge General Surgery 07/25/18 [place] [address] [place] [address] Pharmacist Pharmacy 08/23/22 Drawing In Machine Tender Helper Relationship Specialty Start Date End Date Zaida Gaston MD [address] [place] [address] PCP - General Internal Medicine 04/26/16 Loida Montiel I, DO [address] [place] [address] Specialty Pet Resort Concierge Nephrology 06/11/18 Heena Adams [address] [facility] [address] [place] [address] Specialty Pet Resort Concierge Endocrinology 06/11/18 Satish Phan MD [address] [facility] [place] [address] Specialty Pet Resort Concierge General Surgery 07/25/18 [place] [facility] [address] [place] [address] Pharmacist Pharmacy 08/23/22 Drawing In Machine Tender Helper Relationship Specialty Start Date End Date Zaida Gaston MD [address] [place] [address] PCP - General Internal Medicine 04/26/16 Loida Montiel I, DO [address] [place] [address] Specialty Pet Resort Concierge Nephrology 06/11/18 Heena Adams [address] [facility] [address] [place] [address] Specialty Pet Resort Concierge Endocrinology 06/11/18 Satish Phan MD [address] [facility] [place] [address] Specialty Pet Resort Concierge General Surgery 07/25/18 Mey [facility] [address] [place] [address] Pharmacist Pharmacy 08/23/22 Drawing In Machine Tender Helper Relationship Specialty Start Date End Date Zaida Gaston MD [address] [place] [address] PCP - General Internal Medicine 04/26/16 Loida Montiel I, DO [address] [place] [address] [place] [address] Specialty Pet Resort Concierge Nephrology 06/11/18 Heena Adams [address] [place] [address] Specialty Pet Resort Concierge Endocrinology 06/11/18 Satish Phan MD [address] [place] [address] Specialty Pet Resort Concierge General Surgery 07/25/18 [facility] [address] [place] [address] Pharmacist Pharmacy 08/23/22 Team Status: Active Member Role Status Dates Dr. Zaida Gaston MD Family Provider Active Dr. Zaida Gaston MD Primary Care Provider Active Team Status: Inactive Member Role Status Dates Dr. Zaida Gaston MD Primary Care Provider, Referring Provider Active Mary Patel PA, PA Attending Provider Active Team Status: Active Member Role Status Dates Dr. Zaida Gaston MD Primary Care Provider Active Dr. Dona Medina DPM Other Provider Active Suzanne Cornelius FAMILY RESOURCE MANAGEMENT PROFESSOR, FAMILY RESOURCE MANAGEMENT PROFESSOR-C Attending Provider, Referri ng Provider Active Team Status: Active Member Role Status Dates Dr. Zaida Gaston MD Primary Care Provider Active Dr. Dona Medina DPM Other Provider Active Jenna Bedoya FAMILY RESOURCE MANAGEMENT PROFESSOR, FAMILY RESOURCE MANAGEMENT PROFESSOR-C Attending Provider, Referrin g Provider Active Team Status: Active Member Role Status Dates Dr. Zaida Gaston MD Primary Care Provider Active Dr. Mayo Levy DPM Referring Provider Active Dr. Dona Medina DPM Other Provider Active Dr. Kerrie Henderson MD Attending Provider Active Team Status: Inactive Member Role Status Dates Dr. Zaida Gaston MD Primary Care Provider, Referring Provider Active MARU MorelandC Attending Provider Active Team Status: Inactive Member Role Status Dates Dr. Zaida Gaston MD Primary Care Provider Active Dr. Mayo Levy DPM Referring Provider Active Dr. Dona Medina DPM Attending Provider Active Team Status: Inactive Member Role Status Dates Dr. Zaida Gaston MD Primary Care Provider Active Dr. Vj Barroso MD Attending Provider, Emergency Pr ovider Active Drawing In Machine Tender Helper Relationship Specialty Start Date End Date Zaida Gaston MD [address] [place] [place] [address] PCP - General Internal Medicine 04/26/16 Loida Montiel I, DO [address] [place], [place] [address] Specialty Pet Resort Concierge Nephrology 06/11/18 Heena Adams [address] [facility] [place] [address] [place] [address] Specialty Pet Resort Concierge Endocrinology 06/11/18 Satish Phan MD [address] [place], [place] [address] Specialty Pet Resort Concierge General Surgery 07/25/18 Verna Jensen, [facility] [address] [place] [address] Pharmacist Pharmacy 08/23/22 Team Status: Active Member [...] MD Other Provider Active Dr. William Hayes DO Other Provider Active Dr. Kerrie Henderson MD Other Provider Active Dr. Awa Martínez MD Other Provider Active Vivian Garrison FAMILY RESOURCE MANAGEMENT PROFESSOR, FAMILY RESOURCE MANAGEMENT PROFESSOR-C Other Provider Active John Funes FAMILY RESOURCE MANAGEMENT PROFESSOR, FAMILY RESOURCE MANAGEMENT PROFESSOR-C Other Provider Active Faviola Josue PA Other Provider Active Dr. Satish Nava MD [...] Martínez MD Other Provider Active Vivian Garrison FAMILY RESOURCE MANAGEMENT PROFESSOR, FAMILY RESOURCE MANAGEMENT PROFESSOR-C Other Provider Active John Funes FAMILY RESOURCE MANAGEMENT PROFESSOR, FAMILY RESOURCE MANAGEMENT PROFESSOR-C Other Provider Active Faviola Josue PA Other Provider Active Dr. Satish Nava MD [...] Martínez MD Other Provider Active Vivian Garrison FAMILY RESOURCE MANAGEMENT PROFESSOR, FAMILY RESOURCE MANAGEMENT PROFESSOR-C Other Provider Active John Funes FAMILY RESOURCE MANAGEMENT PROFESSOR, FAMILY RESOURCE MANAGEMENT PROFESSOR-C Other Provider Active Faviola Josue PA Other Provider Active Dr. Satish Nava MD Other Provider Active Dr. Shruti Jara MD Attending Provider Active Team Status: Inactive Member Role Status Dates Dr. Zaida Gaston MD Primary Care Provider Active Dr. Chuy Santiago MD Emergency Provider Active Dr. Mayo Levy DPM Admit Provider, Attending Pro vider Active Delmy Billy Other Provider Active Dr. Amy Ureña MD Other Provider Active Dr. William Hayes , DO Other Provider Active Dr. Kerrie Henderson MD Other Provider Active Dr. Awa Martínez MD Other Provider Active Vivian Garrison FAMILY RESOURCE MANAGEMENT PROFESSOR, FAMILY RESOURCE MANAGEMENT PROFESSOR-C Other Provider Active John Funes FAMILY RESOURCE MANAGEMENT PROFESSOR, FAMILY RESOURCE MANAGEMENT PROFESSOR-C Other Provider Active AJ Julio Other Provider Active Dr. Satish Nava MD Other Provider Active Drawing In Machine Tender Helper Relationship Specialty Start Date End Date Zaida Gaston MD [address] [facility] [place] [address] PCP - General Internal Medicine 04/26/16 Loida Montiel I, DO [address] [facility] [address] [place] [address] Specialty Pet Resort Concierge Nephrology 06/11/18 Heena Adams [address] [facility] [address] [place] [address] Specialty Pet Resort Concierge Endocrinology 06/11/18 Satish Phan MD [address] [facility] [place] [address] Specialty Pet Resort Concierge General Surgery 07/25/18 GassawayVerna, [facility] [address] [place] [phone] Pharmacist Pharmacy 08/23/22 Drawing In Machine Tender Helper Relationship Specialty Start Date End Date Zaida Gaston MD [address] [facility] [place] [address] PCP - General Internal Medicine 04/26/16 Loida Montiel I, DO [address] [place] [address] Specialty Pet Resort Concierge Nephrology 06/11/18 Heena Adams [address] [facility] [address] [place] [address] Specialty Pet Resort Concierge Endocrinology 06/11/18 Satish Phan MD [address] [facility] [place] [address] Specialty Pet Resort Concierge General Surgery 07/25/18 Drawing In Machine Tender Helper Relationship Specialty Start Date End Date Zaida Gaston MD [address] [facility] [place] [address] PCP - General Internal Medicine 04/26/16 Loida Montiel I, DO [address] [facility] [address] [place] [address] Specialty Pet Resort Concierge Nephrology 06/11/18 Heena Adams [address] [facility] [address] [place] [address] Specialty Pet Resort Concierge Endocrinology 06/11/18 Satish Phan MD [address] [place] [address] Specialty Pet Resort Concierge General Surgery 07/25/18 Drawing In Machine Tender Helper Relationship Specialty Start Date End Date Zaida Gaston MD [address] [facility] [place] [place] [address] PCP - General Internal Medicine 04/26/16 Loida Montiel I, DO [address] [facility] [address] [place] [address] Specialty Pet Resort Concierge Nephrology 06/11/18 Heena Adams [address] [facility] [address] [place] [address] Specialty Pet Resort Concierge Endocrinology 06/11/18 Satish Phan MD [address] [place] [address] Specialty Pet Resort Concierge General Surgery 07/25/18 Drawing In Machine Tender Helper Relationship Specialty Start Date End Date Zaida Gaston MD [address] [facility] [place] [address] PCP - General Internal Medicine 04/26/16 Loida Montiel I, DO [address] [place] [address] Specialty Pet Resort Concierge Nephrology 06/11/18 Heena Adams J [address] [facility] [address] [place] [address] Specialty Pet Resort Concierge Endocrinology 06/11/18 Satish Phan MD [address] [place] [address] Specialty Pet Resort Concierge General Surgery 07/25/18 Team Status: Active Member Role Status Dates Dr. Zaida Gaston MD Primary Care Provider Active Dr. Tylor Rudd MD Attending Provider Active Dr. Mayo Levy DPM Referring Provider Active Team Status: Inactive Member Role Status Dates Dr. Zaida Gaston MD Primary Care Provider Active Conchis Meza NP-C Attending Provider, Referring Pr ovider Active Drawing In Machine Tender Helper Relationship Specialty Start Date End Date Zaida Gaston MD [address] [facility] [place] [address] PCP - General Internal Medicine 04/26/16 Loida Montiel I, DO [address] [place] [address] Specialty Pet Resort Concierge Nephrology 06/11/18 Heena Adams [address] [facility] [address] [place] [address] Specialty Pet Resort Concierge Endocrinology 06/11/18 Satish Phan MD [address] [place] [address] Specialty Pet Resort Concierge General Surgery 07/25/18 Drawing In Machine Tender Helper Relationship Specialty Start Date End Date Zaida Gaston MD [address] [facility] [place] [address] PCP - General Internal Medicine 04/26/16 Loida Montiel I, DO [address] [place] [address] [place] [address] Specialty Pet Resort Concierge Nephrology 06/11/18 Heena Adams J [address] [facility] [address] [place] [address] Specialty Pet Resort Concierge Endocrinology 06/11/18 Satish Phan MD [address] [place] [address] Specialty Pet Resort Concierge General Surgery 07/25/18 Team Status: Inactive Member Role Status Dates Dr. Zaida Gaston MD Primary Care Provider, Referring Provider Active Yissel Willis NP, FAMILY RESOURCE MANAGEMENT PROFESSOR-C Attending Provider Active Team Status: Inactive Member Role Status Dates Dr. Zaida Gaston MD Primary Care Provider Active Dr. Loi Saldana DO Emergency Provider Active Drawing In Machine Tender Helper Relationship Specialty Start Date End Date Zaida Gaston MD [address] [facility] [place] [place] [address] PCP - General Internal Medicine 04/26/16 Loida Montiel I, DO [address] [facility] [address] [place] [address] Specialty Pet Resort Concierge Nephrology 06/11/18 Heena Adams [address] [facility] [address] [place] [address] Specialty Pet Resort Concierge Endocrinology 06/11/18 Satish Phan MD [address] [place] [address] Specialty Pet Resort Concierge General Surgery 07/25/18 Drawing In Machine Tender Helper Relationship Specialty Start Date End Date Zaida Gaston MD [address] [facility] [place] [place] [address] PCP - General Internal Medicine 04/26/16 Loida Montiel I, DO [address] [facility] [address] [place] [address] Specialty Pet Resort Concierge Nephrology 06/11/18 Heena Adams [address] [place] [address] Specialty Pet Resort Concierge Endocrinology 06/11/18 Satish Phan MD [address] [place] [address] Specialty Pet Resort Concierge General Surgery 07/25/18 Drawing In Machine Tender Helper Relationship Specialty Start Date End Date Zaida Gaston MD [address] [facility] [place] [place] [address] PCP - General Internal Medicine 04/26/16 Loida Montiel I, DO [address] [place] [address] [place], [place] [address] Specialty Pet Resort Concierge Nephrology 06/11/18 Henea Adams [address] [facility] [address] [place] [address] Specialty Pet Resort Concierge Endocrinology 06/11/18 Satish Phan MD [address] [place] [address] Specialty Pet Resort Concierge General Surgery 07/25/18 Drawing In Machine Tender Helper Relationship Specialty Start Date End Date Zaida Gaston MD [address] [place] [address] PCP - General Internal Medicine 04/26/16 Loida Montiel I, DO [address] [facility] [address] [place] [address] Specialty Pet Resort Concierge Nephrology 06/11/18 Heena Adams [address] [facility] [address] [place] [address] Specialty Pet Resort Concierge Endocrinology 06/11/18 Satish Phan MD [address] [place] [address] Specialty Pet Resort Concierge General Surgery 07/25/18 Drawing In Machine Tender Helper Relationship Specialty Start Date End Date Zaida Gaston MD [address] [facility] [place] [address] PCP - General Internal Medicine 04/26/16 Loida Montiel I, DO [address] [place] [address] Specialty Pet Resort Concierge Nephrology 06/11/18 Heena Adams [address] [facility] [address] [place] [address] [phone] Specialty Pet Resort Concierge Endocrinology 06/11/18 aStish Phan MD [address] [place] [address] Specialty Pet Resort Concierge General Surgery 07/25/18 Drawing In Machine Tender Helper Relationship Specialty Start Date End Date Zaida Gaston MD [address] [facility] [place] [address] PCP - General Internal Medicine 04/26/16 Loida Montiel I, DO [address] [place] [address] Specialty Pet Resort Concierge Nephrology 06/11/18 Heena Adams [address] [place] [facility] [address] [place] [address] Specialty Pet Resort Concierge Endocrinology 06/11/18 Satish Phan MD [address] [place] [address] Specialty Pet Resort Concierge General Surgery 07/25/18 Drawing In Machine Tender Helper Relationship Specialty Start Date End Date Zaida Gaston MD [address] [facility] [place] [address] PCP - General Internal Medicine 04/26/16 Loida Montiel I, [address] [facility] [address] [place] [address] Specialty Pet Resort Concierge Nephrology 06/11/18 Heena Adams [address] [place] [facility] [address] [place] [address] Specialty Pet Resort Concierge Endocrinology 06/11/18 Satish Phan MD [address] [place] [address] Specialty Pet Resort Concierge General Surgery 07/25/18 Drawing In Machine Tender Helper Relationship Specialty Start Date End Date Zaida Gaston MD [address] [place] [address] PCP - General Internal Medicine 04/26/16 Loida Montiel I, DO [address] [place] [address] Specialty Pet Resort Concierge Nephrology 06/11/18 Heena Adams [address] [place] [facility] [address] [place] [address] Specialty Pet Resort Concierge Endocrinology 06/11/18 Satish Phan MD [address] [place] [address] Specialty Pet Resort Concierge General Surgery 07/25/18 Drawing In Machine Tender Helper Relationship Specialty Start Date End Date Zaida Gaston MD [address] [facility] [place] [address] PCP - General Internal Medicine 04/26/16 Loida Montiel I, DO [address] [facility] [address] [place] [address] Specialty Pet Resort Concierge Nephrology 06/11/18 Heena Adams [address] [facility] [address] [place] [address] Specialty Pet Resort Concierge Endocrinology 06/11/18 Satish Phan MD [address] [place] [address] Specialty Pet Resort Concierge General Surgery 07/25/18 Drawing In Machine Tender Helper Relationship Specialty Start Date End Date Zaida Gaston MD [address] [facility] [place] [address] PCP - General Internal Medicine 04/26/16 Loida Montiel I, DO [address] [facility] [address] [place] [address] Specialty Pet Resort Concierge Nephrology 06/11/18 Heena Adams [address] [facility] [address] [place] [address] Specialty Pet Resort Concierge Endocrinology 06/11/18 Satish Phan MD [address] [place] [address] Specialty Pet Resort Concierge General Surgery 07/25/18 Conchis Sheets, RN Registered Nurse Transplant Center 07/25/23 Drawing In Machine Tender Helper Relationship Specialty Start Date End Date Zaida Gaston MD [address] [facility] [place] [address] PCP - General Internal Medicine 04/26/16 Loida Montiel I, DO [address] [facility] [address] [place] [address] Specialty Pet Resort Concierge Nephrology 06/11/18 Heena Adams [address] [facility] [address] [place] [address] Specialty Pet Resort Concierge Endocrinology 06/11/18 Satish Phan MD [address] [place] [address] Specialty Pet Resort Concierge General Surgery 07/25/18 Conchis Sheets RN Registered Nurse Transplant Center 07/25/23 Drawing In Machine Tender Helper Relationship Specialty Start Date End Date Zaida Gaston MD [address] [facility] [place] [address] PCP - General Internal Medicine 04/26/16 Loida Montiel I, DO [address] [facility] [address] [place] [address] Specialty Pet Resort Concierge Nephrology 06/11/18 Heena Adams [address] [place] [facility] [address] [place] [address] Specialty Pet Resort Concierge Endocrinology 06/11/18 Satish Phan MD [address] [place] [address] Specialty Pet Resort Concierge General Surgery 07/25/18 Conchis Sheets, RN Registered Nurse Transplant Center 07/25/23 Drawing In Machine Tender Helper Relationship Specialty Start Date End Date Zaida Gaston MD [address] [facility] [place] [address] PCP - General Internal Medicine 04/26/16 Loida Montiel I, DO [address] [facility] [address] [place] [address] Specialty Pet Resort Concierge Nephrology 06/11/18 Heena Adams [address] [place] [facility] [address] [place] [address] Specialty Pet Resort Concierge Endocrinology 06/11/18 Satish Phan MD [address] [place] [address] Specialty Pet Resort Concierge General Surgery 07/25/18 Conchis Sheets RN Registered Nurse Transplant Center 07/25/23 Drawing In Machine Tender Helper Relationship Specialty Start Date End Date Zaida Gaston MD [address] [facility] [place] [address] PCP - General Internal Medicine 04/26/16 Loida Montiel I, DO [address] [facility] [address] [place], [place] [address] Specialty Pet Resort Concierge Nephrology 06/11/18 Heena Adams [address] [place] [facility] [address] [place] [address] Specialty Pet Resort Concierge Endocrinology 06/11/18 Satish Phan MD [address] [place] [address] Specialty Pet Resort Concierge General Surgery 07/25/18 Conchis Sheets, RN Registered Nurse Transplant Center 07/25/23 Drawing In Machine Tender Helper Relationship Specialty Start Date End Date Zaida Gaston MD [address] [facility] [place] [address] PCP - General Internal Medicine 04/26/16 Loida Montiel I, DO [address] [place] [address] [place] [address] Specialty Pet Resort Concierge Nephrology 06/11/18 Heena Adams [address] [place] [facility] [address] [place] [phone] Specialty Pet Resort Concierge Endocrinology 06/11/18 Satish Phan MD [address] [place] [address] Specialty Pet Resort Concierge General Surgery 07/25/18 Conchis Sheets, RN Registered Nurse Transplant Center 07/25/23 Conchis Sheets, ANDER Registered Nurse Transplant Center 09/10/23 Drawing In Machine Tender Helper Relationship Specialty Start Date End Date Zaida Gaston MD [address] [facility] [place] [address] PCP - General Internal Medicine 04/26/16 Loida Montiel I, DO [address] [place] [address] [place], [place] [address] Specialty Pet Resort Concierge Nephrology 06/11/18 Heena Adams [address] [place] [facility] [address] [place] [phone] Specialty Pet Resort Concierge Endocrinology 06/11/18 Satish Phan MD [address] [place] [address] Specialty Pet Resort Concierge General Surgery 07/25/18 Conchis Sheets, ANDER Registered Nurse Transplant Center 07/25/23 Conchis Sheets, ANDER Registered Nurse Transplant Center 09/10/23 Drawing In Machine Tender Helper Relationship Specialty Start Date End Date Zaida Gaston MD [address] [place] [address] PCP - General Internal Medicine 04/26/16 Loida Montiel I, DO [address] [facility] [address] [place] [address] Specialty Pet Resort Concierge Nephrology 06/11/18 Heena Adams [address] [place] [facility] [address] [place] [address] Specialty Pet Resort Concierge Endocrinology 06/11/18 Satish Phan MD [address] [place] [address] Specialty Pet Resort Concierge General Surgery 07/25/18 Conchis Sheets, ANDER Registered Nurse Transplant Center 07/25/23 Conchis Sheets RN Registered Nurse Transplant Center 09/10/23 Drawing In Machine Tender Helper Relationship Specialty Start Date End Date Zaida Gaston MD [address] [facility] [place] [address] PCP - General Internal Medicine 04/26/16 Loida Montiel I, DO [address] [facility] [address] [facility] [address] [place] [address] Specialty Pet Resort Concierge Nephrology 06/11/18 Heena Adams [address] [facility] [address] [place] [address] Specialty Pet Resort Concierge Endocrinology 06/11/18 Satish Phan MD [address] [place] [address] Specialty Pet Resort Concierge General Surgery 07/25/18 Conchis Sheets, RN Registered Nurse Transplant Center 07/25/23 Conchis Sheets, RN Registered Nurse Transplant Center 09/10/23 Drawing In Machine Tender Helper Relationship Specialty Start Date End Date Zaida Gaston MD [address] [facility] [place] [address] PCP - General Internal Medicine 04/26/16 Loida Montiel I, DO [address] [facility] [address] [place] [address] Specialty Pet Resort Concierge Nephrology 06/11/18 Heena Adams [address] [place] [facility] [address] [place] [address] Specialty Pet Resort Concierge Endocrinology 06/11/18 Satish Phan MD [address] [place] [address] Specialty Pet Resort Concierge General Surgery 07/25/18 Conchis Sheets, RN Registered Nurse Transplant Center 07/25/23 Conchis Sheets, RN Registered Nurse Transplant Center 09/10/23 Drawing In Machine Tender Helper Relationship Specialty Start Date End Date Zaida Gaston MD [address] [place] [address] PCP - General Internal Medicine 04/26/16 Loida Montiel I, DO [address] [facility] [address] [place] [address] Specialty Pet Resort Concierge Nephrology 06/11/18 Heena Adams [address] [facility] [address] [place] [address] Specialty Pet Resort Concierge Endocrinology 06/11/18 Satish Phan MD [address] [place] [address] Specialty Pet Resort Concierge General Surgery 07/25/18 Conchis Sheets, ANDER Registered Nurse Transplant Center 07/25/23 Conchis Sheets, ANDER Registered Nurse Transplant Center 09/10/23 Drawing In Machine Tender Helper Relationship Specialty Start Date End Date Zaida Gaston MD [address] [facility] [address] PCP - General Internal Medicine 04/26/16 Loida Montiel I, DO [address] [place] [address] Specialty Pet Resort Concierge Nephrology 06/11/18 Heena Adams [address] [facility] [address] [place] [address] Specialty Pet Resort Concierge Endocrinology 06/11/18 Satish Phan MD [address] [place] [address] Specialty Pet Resort Concierge General Surgery 07/25/18 Conchis Sheets, RN Registered Nurse Transplant Center 07/25/23 Conchis Sheets RN Registered Nurse Transplant Center 09/10/23 Drawing In Machine Tender Helper Relationship Specialty Start Date End Date Zaida Gaston MD [address] [facility] [place] [address] PCP - General Internal Medicine 04/26/16 Loida Montiel I, DO [address] [facility] [address] [place] [address] Specialty Pet Resort Concierge Nephrology 06/11/18 Heena Adams [address] [facility] [address] [place] [address] Specialty Pet Resort Concierge Endocrinology 06/11/18 Satish Phan MD [address] [place] [address] Specialty Pet Resort Concierge General Surgery 07/25/18 Conchis Sheets RN Registered Nurse Transplant Center 07/25/23 Conchis Sheets RN Registered Nurse Transplant Center 09/10/23 Drawing In Machine Tender Helper Relationship Specialty Start Date End Date Zaida Gaston MD [address] [facility] [place] [address] PCP - General Internal Medicine 04/26/16 Loida Montiel I, DO [address] [facility] [address] [place] [address] Specialty Pet Resort Concierge Nephrology 06/11/18 Heena Adams [address] [facility] [address] [place] [address] Specialty Pet Resort Concierge Endocrinology 06/11/18 Satish Phan MD [address] [place] [address] Specialty Pet Resort Concierge General Surgery 07/25/18 Conchis Sheets RN Registered Nurse Transplant Center 07/25/23 Begala, Conchis, RN Registered Nurse Transplant Center 09/10/23 Drawing In Machine Tender Helper Relationship Specialty Start Date End Date Zaida Gaston MD [address] [facility] [address] PCP - General Internal Medicine 04/26/16 Loida Montiel I, DO [address] [facility] [address] [place] [address] Specialty Pet Resort Concierge Nephrology 06/11/18 Heena Adams [address] [place] [facility] [address] [place] [address] Specialty Pet Resort Concierge Endocrinology 06/11/18 Satish Phan MD [address] [place] [address] Specialty Pet Resort Concierge General Surgery 07/25/18 Conchis Sheets, ANDER Registered Nurse Transplant Center 07/25/23 Conchis Sheets, ANDER Registered Nurse Transplant Center 09/10/23 Drawing In Machine Tender Helper Relationship Specialty Start Date End Date Zaida Gaston MD [address] [place] [address] PCP - General Internal Medicine 04/26/16 Loida Montiel I, DO [address] [place] [address] Specialty Pet Resort Concierge Nephrology 06/11/18 Heena Adams [address] [facility] [address] [place] [address] Specialty Pet Resort Concierge Endocrinology 06/11/18 Satish Phan MD [address] [place] [address] Specialty Pet Resort Concierge General Surgery 07/25/18 Conchis Sheets, ANDER Registered Nurse Transplant Center 07/25/23 Conchis Sheets RN Registered Nurse Transplant Center 09/10/23 Drawing In Machine Tender Helper Relationship Specialty Start Date End Date Zaida Gaston MD [address] [facility] [place] [address] PCP - General Internal Medicine 04/26/16 Loida Montiel I, DO [address] [place] [address] Specialty Pet Resort Concierge Nephrology 06/11/18 Heena Adams [address] [place] [facility] [address] [place] [address] Specialty Pet Resort Concierge Endocrinology 06/11/18 Satish Phan MD [address] [place] [address] Specialty Pet Resort Concierge General Surgery 07/25/18 Conchis Sheets, ANDER Registered Nurse Transplant Center 07/25/23 Conchis Sheets RN Registered Nurse Transplant Center 09/10/23 Drawing In Machine Tender Helper Relationship Specialty Start Date End Date Zaida Gaston MD [address] [facility] [address] PCP - General Internal Medicine 04/26/16 Loida Montiel I, DO [address] [place] [address] Specialty Pet Resort Concierge Nephrology 06/11/18 Heena Adams [address] [place] [address] Specialty Pet Resort Concierge Endocrinology 06/11/18 Satish Phan MD [address] [place] [address] Specialty Pet Resort Concierge General Surgery 07/25/18 Alana Kent APRN.DOUGH MAKER [address] [place] [address] Transplant Center 03/20/24 Drawing In Machine Tender Helper Relationship Specialty Start Date End Date Zaida Gaston MD [address] [facility] [address] PCP - General Internal Medicine 04/26/16 Loida Montiel I, DO [address] [place] [address] Specialty Pet Resort Concierge Nephrology 06/11/18 Heena Adams [address] [facility] [address] [place] [address] Specialty Pet Resort Concierge Endocrinology 06/11/18 Satish Phan MD [address] [place] [address] Specialty Pet Resort Concierge General Surgery 07/25/18 Alana Kent APRN.DOUGH MAKER [address] [place] [address] Transplant Center 03/20/24 Drawing In Machine Tender Helper Relationship Specialty Start Date End Date Zaida Gaston MD [address] [facility] [place] [address] PCP - General Internal Medicine 04/26/16 Loida Montiel I, DO [address] [facility] [address] [address] [facility] Nephrology 06/11/18 Heena Adams [address] [address] [facility] Endocrinology 06/11/18 Satish Phan MD [address] [place] [address] [facility] General Surgery 07/25/18 Alana eKnt APRN.DOUGH MAKER [address] [place], [place] [id number] Transplant Center 03/20/24 Drawing In Machine Tender Helper Relationship Specialty Start Date End Date Zaida Gaston MD [address] [place] [address] PCP - General Internal Medicine 04/26/16 Loida Montiel I, DO [address] [address] [facility] Nephrology 06/11/18 Heena Adams [address] [address] [facility] Endocrinology 06/11/18 Satish Phan MD [address] [place], [place] [address] [facility] General Surgery 07/25/18 Alana Kent APRN.DOUGH MAKER [address] [facility] [place], [place] [id number] Transplant Center 03/20/24 Drawing In Machine Tender Helper Relationship Specialty Start Date End Date Zaida Gaston MD [address] [place], [place] 616181 PCP - General Internal Medicine 04/26/16 Loida Montiel I, DO [address] 9[address] [facility] Nephrology 06/11/18 Heena Adams [address] [facility] [address] [place] [phone] [facility] Endocrinology 06/11/18 Satish Phan MD [address] [place], [place] [address] [facility] General Surgery 07/25/18 Alana Kent APRN.DOUGH MAKER [address] [place] [address] Transplant Center 03/20/24 Drawing In Machine Tender Helper Relationship Specialty Start Date End Date Zaida Gaston MD [address] [place], [place] [address]861 PCP - General Internal Medicine 04/26/16 Loida Montiel I, DO [address] [phone] [facility] Nephrology 06/11/18 Heena Adams [address] [facility] [address] [place] [phone] [facility] Endocrinology 06/11/18 Satish Phan MD [address] [place] [address] [facility] General Surgery 07/25/18 Alana Kent APRN.DOUGH MAKER [address] [place] [address] Transplant Center 03/20/24 Drawing In Machine Tender Helper Relationship Specialty Start Date End Date Zaida Gaston MD [address] [facility] [place] [address] PCP - General Internal Medicine 04/26/16 Loida Montiel I, DO 1761 [facility] [facility] [address] [place] [address] Specialty [facility] Nephrology 06/11/18 Heena Adams [address] [place] [facility] [address] [place] [address] Specialty [facility] Endocrinology 06/11/18 Satish Phan MD [address] [place] [address] [facility] General Surgery 07/25/18 Alana Kent APRN.DOUGH MAKER [address] [place] [address] Transplant Center 03/20/24 Drawing In Machine Tender Helper Relationship Specialty Start Date End Date Zaida Gaston MD [address] [place] [place] [address] PCP - General Internal Medicine 04/26/16 Loida Montiel I, DO 1761 [facility] [address] [place] [address] Specialty [facility] Con[facility] Nephrology 06/11/18 Heena Adams [address] [facility] [address] [place] [phone] Specialty [facility] Endocrinology 06/11/18 Satish Phan MD [address] [place] [address] [facility] General Surgery 07/25/18 Alana Kent APRN.DOUGH MAKER [address] [place] [address] Transplant Center 03/20/24 Drawing In Machine Tender Helper Relationship Specialty Start Date End Date Zaida Gaston MD [address] [place] [address] PCP - General Internal Medicine 04/26/16 Loida Montiel I, DO [address] [phone] [facility] Nephrology 06/11/18 Heena Adams [address] [place] [facility] [address] [place] [phone] Special[facility] Endocrinology 06/11/18 Satish Phan MD [address] [place] [address] [facility] General Surgery 07/25/18 Alana Kent APRN.DOUGH MAKER [address] [facility] [place] [address] Transplant Center 03/20/24 Drawing In Machine Tender Helper Relationship Specialty Start Date End Date Zaida Gaston MD [address] [place], [place] 452801 PCP - General Internal Medicine 04/26/16 Loida Montiel I, DO [address], [place] [address] Specialty [facility] Nephrology 06/11/18 Heena Adams [address] [facility] [address] [place] [phone] Specialty [facility] Endocrinology 06/11/18 Satish Phan MD [address] [place], [place] 701[address] [facility] General Surgery 07/25/18 Alana Kent APRN.DOUGH MAKER [address] [place], [place] 8377995 Transplant Center 03/20/24 Drawing In Machine Tender Helper Relationship Specialty Start Date End Date Zaida Gaston MD [address] [place] [address] PCP - General Internal Medicine 04/26/16 Loida Montiel I, DO [address], [place] [address] [facility] Nephrology 06/11/18 Heena Adams [address] [place] [facility] [address] [place] [phone] Specialty [facility] Endocrinology 06/11/18 Satish Phan MD [address] [place] [address] Specialty [facility] General Surgery 07/25/18 Alana Kent APRN.DOUGH MAKER [address] [place] [address] Transplant Center 03/20/24 Drawing In Machine Tender Helper Relationship Specialty Start Date End Date Zaida Gaston MD [address] [place] [address] PCP - General Internal Medicine 04/26/16 Loida Montiel I, DO [address] [address] [facility] Nephrology 06/11/18 Heena Adams [address] [place] [address] [address] Specialty [facility] Endocrinology 06/11/18 Satish Phan MD [address] [place] [address] [facility] General Surgery 07/25/18 Alana Kent APRN.DOUGH MAKER [address] [facility] [place] [address] Transplant Center 03/20/24 Drawing In Machine Tender Helper Relationship Specialty Start Date End Date Zaida Gaston MD [address] [place] [address] PCP - General Internal Medicine 04/26/16 Loida Montiel I, DO 1761 [facility] [address] [address] [facility] Nephrology 06/11/18 Heena Adams [address] [place] [address] [phone] Special[facility] Endocrinology 06/11/18 Satish Phan MD [address] [place] [place], [place] [address] [facility] General Surgery 07/25/18 Alana Kent APRN.DOUGH MAKER [address] [place], [place] 449[address] Transplant Center 03/20/24 Xiang Perez PA-C [address] [place] [address] Human Resources Office Assistant Family Medicine 08/16/24 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 APRN.DOUGH MAKER [address] [place] [address] Human Resources Office Assistant Internal Medicine 08/16/24 Amber Gray PA-C [address] [place] [address] Human Resources Office Assistant Family [facility] 08/16/24 Drawing In Machine Tender Helper Relationship Specialty Start Date End Date Zaida Gaston MD [address] [place] [address] PCP - General Internal Medicine 04/26/16 Loida Montiel I, DO [address] [address] [facility] Nephrology 06/11/18 Heena Adams [address] [facility] [address] [place] [address] Specialty [facility] Endocrinology 06/11/18 Satish Phan MD [address] [place] [address] [facility] General Surgery 07/25/18 Alana Kent APRN.DOUGH MAKER [address] [place] [address] Transplant Center 03/20/24 Xiang Perez PA-C [address] [place] [address] Human Resources Office Assistant Family Medicine 08/16/24 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 APRN.DOUGH MAKER [address] [place] [address] Human Resources Office Assistant Internal Medicine 08/16/24 Amber Gray PA-C [address] [place] [address] Human Resources Office Assistant Family Medicine 08/16/24 Drawing In Machine Tender Helper Relationship Specialty Start Date End Date Zaida Gaston MD [address] [place] [address] PCP - General Internal Medicine 04/26/16 Loida Montiel I, DO 1761 [facility] [facility] [address] [place], [place] [address] Specialty [facility] Nephrology 06/11/18 Heena Adams [address] [facility] [address] [place] [address] Specialty [facility] Endocrinology 06/11/18 Satish Phan MD [address] [place], [place] [phone] Special[facility] General Surgery 07/25/18 Alana Kent APRN.DOUGH MAKER [address] [place] [address] Transplant Center 03/20/24 Xiang Perez PA-C [address] [place] [address] Human Resources Office Assistant Family Medicine 08/16/24 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 APRN.DOUGH MAKER [address] [place], [place] 6108[address] Human Resources Office Assistant Internal Medicine 08/16/24 Amber Gray PA-C [address] [place], [place] 55997[address] [facility] 08/16/24 Team Status: Active Member Role Status [...] 2024 End: November 19, 2024 Dr. Yony Solsi DO Attending Provider Active Start : November [...] January 26, 2025 End: January 27, 2025 Drawing In Machine Tender Helper Relationship Specialty Start Date End Date Zaida Gaston MD [address] [facility], [place] [address]2021 PCP - General Internal Medicine 04/26/16 Loida Montiel I, DO [address] [address] Specialty [facility] Nephrology 06/11/18 Heena Adams [address] [facility] [address] [place] [address] Specialty [facility] Con[facility] Endocrinology 06/11/18 Satish Phan MD [address] [facility] [place] [address] Specialty [facility] Con[facility] General Surgery 07/25/18 Alana Kent APRN.DOUGH MAKER [address] [place] [address] Transplant Center 03/20/24 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 APRN.DOUGH MAKER [address] [place] [address] Human Resources Office Assistant Internal Medicine 08/16/24 Leona Esteves MD Human Resources Office Assistant 01/29/25 02/11/25 Drawing In Machine Tender Helper Relationship Specialty Start Date End Date Zaida Gaston MD [address] [place] [address] PCP - General Internal Medicine 04/26/16 Loida Montiel I, DO [address] [facility] [address] [place] [address] Specialty [facility] Nephrology 06/11/18 Heena Adams [address] [place] [facility] [address] [place] [address] Specialty [facility] Endocrinology 06/11/18 Satish Phan MD [address] [place] [address] Specialty [facility] General Surgery 07/25/18 Alana Kent APRN.DOUGH MAKER [address] [place] [address] Transplant Center 03/20/24 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 APRN.DOUGH MAKER [address] [place] [address] Human Resources Office Assistant Internal Medicine 08/16/24 Leona Esteves MD Human Resources Office Assistant 01/29/25 02/11/25 Drawing In Machine Tender Helper Relationship Specialty Start Date End Date Zaida Gaston MD [address] [place] [address] PCP - General Internal Medicine 04/26/16 Loida Montiel I, DO [address] [facility] [address] [place] [address] Specialty [facility] Con[facility] Nephrology 06/11/18 Heena Adams [address] [facility] [address] [place] [address] Specialty [facility] Endocrinology 06/11/18 Satish Phan MD [address] [place] [address] Specialty [facility] General Surgery 07/25/18 Alana Kent APRN.DOUGH MAKER [address] [place] [address] Transplant Center 03/20/24 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 APRN.DOUGH MAKER [address] [place] [address] Human Resources Office Assistant Internal Medicine 08/16/24 ProviderLeona MD Human Resources Office Assistant 01/29/25 02/11/25 Drawing In Machine Tender Helper Relationship Specialty Start Date End Date Zaida Gaston MD [address] [place] [address] PCP - General Internal Medicine 04/26/16 Loida Montiel I, DO [address] [facility] [address] [place] [address] Specialty [facility] Con[facility] Nephrology 06/11/18 Heena Adams [address] [facility] [address] [place] [phone] Specialty [facility] Endocrinology 06/11/18 Satish Phan MD [address] [place], [place] [address] Specialty [facility] General Surgery 07/25/18 Alana Kent APRN.DOUGH MAKER [address] [place] [address] Transplant Center 03/20/24 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 APRN.DOUGH MAKER [address] [place], [place] 519[address] Human Resources Office Assistant Internal Medicine 08/16/24 ProviderLeona MD Human Resources Office Assistant 01/29/25 02/11/25 Team Status: Inactive Member Role [...] February 07, 2025 End: February 07, 2025 Drawing In Machine Tender Helper Relationship Specialty Start Date End Date Zaida Gaston MD [address] [place], [place] 686571 PCP - General Internal Medicine 04/26/16 Loida Montiel I, DO [address] [facility] [address] [place], [place] [address]80[address] Specialty [facility] Nephrology 06/11/18 Heena Adams [address] [facility] [address] [place] [address] Specialty [facility] Con[facility] Endocrinology 06/11/18 Satish Phan MD [address] [place], [place] [address] Specialty [facility] Con[facility] General Surgery 07/25/18 Alana Kent APRN.DOUGH MAKER [address] [place], [place] [address]10[address] Transplant Center 03/20/24 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 APRN.DOUGH MAKER [address] [place] [address] Human Resources Office Assistant Internal Medicine 08/16/24 Leona Esteves MD Human Resources Office Assistant 01/29/25 02/11/25 Drawing In Machine Tender Helper Relationship Specialty Start Date End Date Zaida Gaston MD [address] [place] [address] PCP - General Internal Medicine 04/26/16 Loida Montiel I, DO [address] [address]25[address] [facility] Nephrology 06/11/18 Heena Adams [address] [place] [address] [address] Specialty [facility] Endocrinology 06/11/18 Satish Phan MD [address] [place] [address] Specialty [facility] Con[facility] General Surgery 07/25/18 Alana Kent APRN.DOUGH MAKER [address] [place] [address] Transplant Center 03/20/24 eDlia Kaufman APRN.DOUGH MAKER 1740 [place] [address] Human Resources Office Assistant Internal Medicine 08/16/24 Leona Esteves MD Human Resources Office Assistant 01/29/25 02/11/25 Drawing In Machine Tender Helper Relationship Specialty Start Date End Date Zaida Gaston MD [address] [facility] [place] [address] PCP - General Internal Medicine 04/26/16 Loida Montiel I, 1761 [address] [address] Specialty [facility] Nephrology 06/11/18 Heena Adams [address] [place] [facility] [address] [place] [address] Specialty [facility] Con[facility] Endocrinology 06/11/18 Satish Phan MD [address] [place] [address] Specialty [facility] Conc[facility] General Surgery 07/25/18 Alana Kent APRN.DOUGH MAKER [address] [place] [address] Transplant Center 03/20/24 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 APRN.DOUGH MAKER 1740 [place] [address] Human Resources Office Assistant Internal Medicine 08/16/24 Drawing In Machine Tender Helper Relationship Specialty Start Date End Date Zaida Gaston MD [address] [place] [place] [address] PCP - General Internal Medicine 04/26/16 Loida Montiel I, DO [address] [address]26[address] Specialty [facility] Nephrology 06/11/18 Heena Adams [address] [phone] Special[facility] Endocrinology 06/11/18 Satish Phan MD [address] [place], [place] [address]898[address] Specialty [facility] General Surgery 07/25/18 Alana Kent APRN.DOUGH MAKER [address] [place] [address] Transplant Center 03/20/24 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 APRN.DOUGH MAKER [address] [place] [address] Human Resources Office Assistant Internal Medicine 08/16/24 ProviderLeona MD Human Resources Office Assistant 01/29/25 02/11/25 Drawing In Machine Tender Helper Relationship Specialty Start Date End Date Zaida Gaston MD [address] [place], [place] [address]666[address] PCP - General Internal Medicine 04/26/16 Loida Montiel I, DO [address] [address] Specialty [facility] Nephrology 06/11/18 Heena Adams [address] [phone] Specialty [facility] Con[facility] Endocrinology 06/11/18 Satish Phan MD [address] [place], [place] [address] Specialty [facility] Con[facility] General Surgery 07/25/18 Alana Kent APRN.DOUGH MAKER [address] [place], [place] [address] Transplant Center 03/20/24 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 APRN.DOUGH MAKER [address] [place], [place] [address]1347691 Human Resources Office Assistant Internal Medicine 08/16/24 MeyVerna, [facility] [address] [place] [address] Pharmacist Pharmacy 03/08/25 Drawing In Machine Tender Helper Relationship Specialty Start Date End Date Zaida Gatson MD [address] [place], [place] 29514691 PCP - General Internal Medicine 04/26/16 Loida Montiel I, DO [address] [phone] Specialty [facility] Con[facility] Nephrology 06/11/18 Heena Adams [address] [place] [address] [address] Specialty [facility] Endocrinology 06/11/18 Satish Phan MD [address] [place], [place] 529[address] Specialty [facility] Con[facility] General Surgery 07/25/18 Alana Kent APRN.DOUGH MAKER [address] [place] [address] Transplant Center 03/20/24 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 APRN.DOUGH MAKER 1740 [place] [address] Human Resources Office Assistant Internal Medicine 08/16/24 Verna Jensen, [facility] [address] [place] [address] Pharmacist Pharmacy 03/08/25 Team Status: Active Member [...] March 10, 2025 End: March 10, 2025 Drawing In Machine Tender Helper Relationship Specialty Start Date End Date Zaida Gaston MD [address]40 [place] [address] PCP - General Internal Medicine 04/26/16 Loida Montiel I, DO [address] [facility] [address] [place] [address] Specialty [facility] Con[facility] Nephrology 06/11/18 Heena Adams [address] [facility] [address] [place] [address] Specialty [facility] Con[facility]ge Endocrinology 06/11/18 Satish Phan MD [address] [place] [place], [place] [address] Specialty [facility] Con[facility] General Surgery 07/25/18 Alana Kent APRN.DOUGH MAKER [address] [facility] [place] [address] Transplant Center 03/20/24 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 APRN.DOUGH MAKER [address] [place], [place] 296411 Human Resources Office Assistant Internal Medicine 08/16/24 GassawayVerna, [facility] [address] [place] [phone] Pharmacist Pharmacy 03/08/25 Team Status: Inactive Member Role/Relationship Status Dates [...] March 10, 2025 Dr. Byron Saldana DO Attending Provider Active Start: March 10, 2025 End: March 10, 2025 Dr. Byron Saldana DO Emergency Provider Active Start: March 10, 2025 End: March 10, 2025 Team Status: Inactive Member Role/Relationship Status Dates Dr. Zaida Gaston MD Primary Care Provider Active Start: April 04, 2025 End: April 04, 2025 Dr. Chuy Santiago MD Emergency Provider Active Sta rt: April 04, 2025 End: April 04, 2025 Drawing In Machine Tender Helper Relationship Specialty Start Date End Date Zaida Gaston MD [address] [place], [place] [address]48911 PCP - General Internal Medicine 04/26/16 Loida Montiel I, DO [address] [phone] [facility] Nephrology 06/11/18 Heena Adams [address] [place] [facility] [address] [place] [address] Specialty [facility] Endocrinology 06/11/18 Satish Phan MD [address] [place] [place], [place] [address] Specialty [facility] General Surgery 07/25/18 Alana Kent APRN.DOUGH MAKER [address] [place] [address] Transplant Center 03/20/24 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 APRN.DOUGH MAKER [address] [place], [place] 263[address] Human Resources Office Assistant Internal Medicine 08/16/24 [address] [place] [address] [place] [phone] Pharmacist Pharmacy 03/08/25 Drawing In Machine Tender Helper Relationship Specialty Start Date End Date Zaida Gaston MD [address] [place], [place] 720471 PCP - General Internal Medicine 04/26/16 Loida Montiel I, DO [address] 832[address] Specialty [facility] Nephrology 06/11/18 Heena Adams [address] [address] Specialty [facility] Con[facility]ge Endocrinology 06/11/18 Satish Phan MD [address] [facility] [place] [address] Specialty [facility] Con[facility]ge General Surgery 07/25/18 Alana Kent APRN.DOUGH MAKER [address] [place] [address] Transplant Center 03/20/24 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 APRN.DOUGH MAKER [address] [place], [place] 208[address] Human Resources Office Assistant Internal Medicine 08/16/24 [address] [place] [address] [place] [address] Pharmacist Pharmacy 03/08/25 Team Status: Inactive Member Role/Relationship Status Dates Dr. Zaida Gaston MD Primary Care Provider Active Start: April 04, 2025 End: April 04, 2025 Dr. Chuy Santiago MD Attending Provider Active Sta rt: April 04, 2025 End: April 04, 2025 Dr. Chuy Santiago MD Emergency Provider Active Sta rt: April 04, 2025 End: April 04, 2025 Team Status: Active Member Role/Relationship Status Dates Dr. Zaida Gaston MD Primary Care Provider Active Start: April 15, 2025 Dr. Chuy Santiago MD Emergency Provider Active Sta rt: April 15, 2025 Dr. Shruti Jara MD Admit Provider Active St art: April 15, 2025 Dr. Shruti Jara MD Attending Provider Active Start: April 15, 2025 Team Status: Inactive Member Role/Relationship Status Dates Dr. Zaida Gaston MD Primary Care Provider Active Start: April 15, 2025 End: April 18, 2025 Dr. Chuy Santiago MD Emergency Provider Active Sta rt: April 15, 2025 End: April 18, 2025 Dr. Shruti Jara MD Admit Provider Active St art: April 15, 2025 End: April 18, 2025 Dr. Shruti Jara MD Attending Provider Active Start: April 15, 2025 End: April 18, 2025 Dr. Satish Nava MD Other Provider Active Start: April 15, 2025 End: April 18, 2025 Dr. Satish Nava MD Other Provider Active Start: April 15, 2025 Team Status: Active Member Role/Relationship Status Dates Dr. Zaida Gaston MD Primary Care Provider Active Start: April 16, 2025 Dr. Chuy Santiago MD Emergency Provider Active Sta rt: April 16, 2025 Dr. Shruti Jara MD Admit Provider Active St art: April 16, 2025 Dr. Shruti Jara MD Attending Provider Active Start: April 16, 2025 Dr. Shruti Jara MD Other Provider Active St art: April 16, 2025 Dr. Satish Nava MD Other Provider Active Start: April 16, 2025 Team Status: Active Member Role/Relationship Status Dates Dr. Zaida Gaston MD Primary Care Provider Active Start: April 16, 2025 Dr. Anila Flores MD Attending Provider Active Start: April 16, 2025 Team Status: Active Member Role/Relationship Status Dates Dr. Zaida Gaston MD Primary Care Provider Active Start: April 17, 2025 Dr. Chuy Santiago MD Emergency Provider Active Sta rt: April 17, 2025 Dr. Shruti Jara MD Admit Provider Active St art: April 17, 2025 Dr. Shruti Jara MD Attending Provider Active Start: April 17, 2025 Dr. Shruti Jara MD Other Provider Active St art: April 17, 2025 Dr. Satish Nava MD Other Provider Active Start: April 17, 2025 Drawing In Machine Tender Helper Relationship Specialty Start Date End Date Zaida Gaston MD [address] [place], [place] [address]65[address] PCP - General Internal Medicine 04/26/16 Loida Montiel I, DO [address] [address]35[address] [facility]ty [facility]ge Nephrology 06/11/18 Heena Adams [address] [address] Specialty [facility] Endocrinology 06/11/18 Satish Phan MD [address] [place] [address] Specialty [facility] Con[facility]ge General Surgery 07/25/18 Alana Kent APRN.DOUGH MAKER [address] [place] [address] Transplant Center 03/20/24 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 APRN.DOUGH MAKER [address] [place] [address] Human Resources Office Assistant Internal Medicine 08/16/24 Mey, [facility] [facility] [address] [place] [address] Pharmacist Pharmacy 03/08/25 Drawing In Machine Tender Helper Relationship Specialty Start Date End Date Zaida Gaston MD [address] [place], [place] [address] PCP - General Internal Medicine 04/26/16 Loida Montiel I, DO [address] [phone] Specialty [employer] Resort Concierge Nephrology 06/11/18 Heena Adams [address] [phone] Specialty [employer] Concierge Endocrinology 06/11/18 Satish Phan MD [address] [place], [place] [id number] Specialty [employer] Concierge General Surgery 07/25/18 Alana Kent APRN.DOUGH MAKER [address] [place] [address] Transplant Center 03/20/24 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 APRN.DOUGH MAKER [address] [place], [place] [id number] Human Resources Office Assistant Internal Medicine 08/16/24 Gassaway, [facility] [address] [place] [phone] Pharmacist Pharmacy 03/08/25 ProviderLeona MD Human Resources Office Assistant 05/02/25 05/15/25 Drawing In Machine Tender Helper Relationship Specialty Start Date End Date Zaida Gaston MD [address] [place] [address] PCP - General Internal Medicine 04/26/16 Loida Montiel I, DO [address] [phone] Specialty [employer] Concierge Nephrology 06/11/18 Heena Adams [address] [place] [address] [phone] Specialty Pet Resort Concierge Endocrinology 06/11/18 Satish Phan MD [address] [place], [place] [address] Specialty [employer] Resort Concierge General Surgery 07/25/18 Alana Kent APRN.DOUGH MAKER [address] [place] [address] Transplant Center 03/20/24 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 APRN.DOUGH MAKER [address] [place] [address] Human Resources Office Assistant Internal Medicine 08/16/24 [facility] [address] [place] [address] Pharmacist Pharmacy 03/08/25 Leona Esteves MD Human Resources Office Assistant 05/02/25 05/15/25 Drawing In Machine Tender Helper Relationship Specialty Start Date End Date Zaida Gaston MD [address] [place] [address] PCP - General Internal Medicine 04/26/16 Loida Montiel I, DO [address] [phone] Specialty Pet Resort Concierge Nephrology 06/11/18 Heena Adams [address] [phone] Specialty Pet Resort Concierge Endocrinology 06/11/18 Satish Phan MD [address] [place] [address] Specialty Pet Resort Concierge General Surgery 07/25/18 Alana Kent APRN.DOUGH MAKER [address] [place] [address] Transplant Center 03/20/24 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 APRN.DOUGH MAKER [address] [place] [address] Human Resources Office Assistant Internal Medicine 08/16/24 GassawayVerna, [facility] [address] [place] [address] Pharmacist Pharmacy 03/08/25 Leona Esteves MD Human Resources Office Assistant 05/02/25 05/15/25 Drawing In Machine Tender Helper Relationship Specialty Start Date End Date Zaida Gaston MD [address] [place], [place] [id number] PCP - General Internal Medicine 04/26/16 Loida Montiel I, DO [address] [address] [phone] Specialty Pet Resort Concierge Nephrology 06/11/18 Heena Adams [address] [phone] Specialty Pet Resort Concierge Endocrinology 06/11/18 Satish Phan MD [address] [place], [place] [phone] Specialty Pet Resort Concierge General Surgery 07/25/18 Alana Kent APRN.DOUGH MAKER [address] [place] [address] Transplant Center 03/20/24 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 APRN.DOUGH MAKER [address] [place], [place] [phone] Human Resources Office Assistant Internal Medicine 08/16/24 Verna Jensen, [facility] [address] [place] [address] Pharmacist Pharmacy 03/08/25 ProviderLeona MD Human Resources Office Assistant 05/02/25 05/15/25 Goals (unrecognized section and content) Goals may [...] section and content) DATE CREATED AUTHOR 04/11/2024 [facility] DATE CREATED AUTHOR AUTHOR'S ORGANIZ ATION 04/27/2025 [facility] DATE CREATED AUTHOR AUTHOR'S ORGANIZ ATION 05/15/2025 [facility] FOR RECORDS PERTAINING TO PATIENTS WHO ARE [...] BE BASED ON THE PRIMARY CLINICAL RECORDS. [facility]. provides no warranty or guarantee of the accuracy or completeness of information in this document.
[2025-05-16 14:39] LABS: SITE Not entered; VBG BASE EXCESS -3 mmol/L (-1.0-3.5); VBG PO2 53 mmHg (25-40); VBG SO2 88 % (50-70); VBG TCO2 22 mmol/L (23-33)
[2025-05-16 14:56] LABS: BETA-HYDROXYBUTYRATE 0.1 mmol/L (0.0-0.3); Lipase 18 U/L (13-75)
[2025-05-16 15:09] LABS: Hematocrit 37.6 % (40-54); Hemoglobin 11.8 g/dL (13.0-16.5); Immature Granulocytes Count 0.060 X10^3/uL (0.0-0.0); Mean Corp Hgb Conc 31.4 g/dL (32-36); Mean Corpuscular Volume 92.6 fL (80-94); Mean Platelet Vol. 9.1 fl (6.2-12.0); NRBC Flagged by Analyzer 0 % (0-5); POSITIVE MORPHOLOGY YES; Platelet Count 269 K/mm3 (150-450); RBC Distribution Width CV 14.0 % (11.6-14.6); RBC Distribution Width SD 47.9 fl (35.1-43.9); Red Blood Count 4.06 M/mm3 (4.6-6.2); White Blood Count 10.1 K/mm3 (4.4-11.0)
[2025-05-16 15:18] LABS: AST(SGOT) 22 U/L (<=37); Alanine Aminotransfer ALT/SGPT 13 U/L (<=46); Albumin, Serum 3.4 g/dL (3.5-5.0); Alkaline Phosphatase 155 U/L (40-129); Anion Gap 18 (5-15); BUN 36 mg/dL (4-19); BUN/Creat Ratio 16.3 RATIO (10-20); Calcium,Total 9.4 mg/dL (7.6-11.0); Carbon Dioxide 17.3 mmol/L (21.0-32.0); Chloride 92 mmol/L (98-108); Estimated Creatinine Clearance 35.95 ml/min (50-250); Globulin 4.2 g/dL (2.2-4.2); Glucose 983 mg/dL (70-99); Potassium 4.4 mmol/L (3.3-5.1)
[2025-05-16 15:22] LABS: Differential Indicated SCAN CRITERIA MET
[2025-05-16 15:31] LABS: Red Cell Morphology NORM C+C NORMAL (NORM C&C)
[2025-05-16 16:01] LABS: Magnesium 2.0 mg/dL (1.5-2.2)
--- NOTE | 2025-05-16 16:08 | CT_ITS ---
PROCEDURE: ABDOMEN/PELVIS WITHOUT CONT 05/16/2025 REASON FOR EXAM: ABD PAIN, COFFEE GROUND EMESIS TECHNIQUE: Procedure Code: CTABDPEL Modality: CT Procedure: ABDOMEN/PELVIS WITHOUT CONT Noncontrast technique limits evaluation of the abdominal and pelvic viscera. Coronal and Sagittal reconstruction series were provided. One or more dose reduction techniques were used (e.g., Automated exposure control, adjustment of the mA and/or kV according to patient size, use of iterative reconstruction technique). RADIATION DOSE SUMMARY: CTDlvol: 7.52 mGy DLP: 394.72 mGycm COMPARISON: CT abdomen/pelvis April 14, 2025. FINDINGS: Study limitations: Evaluation of inflammatory changes, infection, bowel wall thickening, mass, posttraumatic injury, viscera and vasculature is suboptimal without contrast. Fine detail evaluation is compromised by motion haziness. Lung bases: No consolidation or effusion at the visualized lung bases. Mild subpleural atelectasis and/or parenchymal scarring. Liver: Hepatic length is 18.3 cm. Evaluation of hepatic parenchyma is limited without contrast. Hepatic attenuation is consistent with steatosis. Gallbladder/biliary: Surgical clips seen in the gallbladder fossa. No fluid collection in the gallbladder fossa. Biliary dilation is not well assessed on this study. Pancreas: Evaluation of the pancreas is limited without contrast. No obvious pancreatic inflammation. Spleen: Mild splenomegaly at 14.5 cm. Adrenals: The adrenal glands are within normal limits. Kidneys/ureters: The [place] kidneys are slightly diminished in overall size but symmetric. There is no hydronephrosis of the [place] kidneys. [place] renal parenchyma is not well assessed due to lack of contrast. Nonspecific perinephric stranding. Any possibility of infection to be correlated with urinalysis. [place] renal calcification seen consistent with vascular calcifications. 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 There is diffuse transplant perinephric edema and stranding. There is moderately severe hydronephrosis of the right renal pelvic transplant of indeterminate cause. A right ureteral stent extends from the right renal pelvic transplant pelvis into the urinary bladder. Adequate positioning of the stent with hydronephrosis indicates that the stent may be obstructed. Any possibility of superimposed infection to be correlated clinically and with urinalysis. Urology consultation is advised. Other transplant abnormalities can not be assessed by this technique and without contrast. Gastrointestinal: The visualized distal esophagus appears thick-walled and is slightly distended with gas up to 3 cm in diameter. Clinical correlation for distal esophagitis. For complete assessment consider nonemergent esophagram. Evaluation for bowel wall and fold thickening is compromised on this study, secondary to lack of any contrast. Fluid-filled small bowel loops in the central abdomen are mildly distended up to 2.5 cm. No point of transition is seen. Findings may be secondary to peristalsis, ileus or gastroenteritis. If there is clinical suspicion for developing or partial obstruction, consider radiographic follow-up or small-bowel follow-through. Semi solid appearing fecal material and some air-fluid levels noted within portions of the colon. This could be abnormal and could be correlated with symptoms and causes of diarrhea. No pericolonic inflammation is seen. No evidence of diverticulitis is seen. Appendix: The appendix is not identified. Clinical correlation is advised. Peritoneal/retroperitoneal: No free intraperitoneal air. No free fluid is seen. Vascular: No abdominal aortic aneurysm or retroperitoneal hematoma. There is calcific atherosclerosis. Vascular patency, stenosis or dissection can not be assessed on this study without contrast. Lymph nodes: Evaluation for lymphadenopathy is limited without contrast. Multiple periaortic and retroperitoneal lymph nodes are noted which appear borderline up to 9 mm in short axis. These could be reactive. Consider follow-up CT in a few months to reassess. Urinary bladder: Distended urinary bladder. There is focal fluid measuring 9 cm in maximal diameter anterior to the urinary bladder of indeterminate significance. This may represent urinoma or other fluid collection. This was not present previously. Consider needle aspiration for diagnosis. Infection or abscess can not be ruled out. Neurogenic bladder or outlet obstruction to be correlated clinically. There is slight bladder wall thickening to be correlated clinically for significance. There is gas within the urinary bladder. This could be iatrogenic, however infection or fistula could also have this appearance. Reproductive: Diffusely enlarged prostate impressing along the base of the bladder. Calcification of the ductus deferens typically seen with diabetes. Penile calcifications noted. Soft tissues: No body wall hematoma. Osseous: Degenerative changes of the spine. No acute osseous injury. CT/Abdomen/Pelvis without Cont IMPRESSION: Gastroesophageal findings to be correlated clinically are discussed above in de tail. - Edematous appearing right renal transplant with moderately severe hydronephrosi s despite the presence of an adequately positioned intraureteral draining stent, may indicate stent obstruction. 9 cm fluid collection anterior and extraneous to the urinary bladder worrisome for urinoma or other fluid collection. Gas within the urinary bladder to be correlated clinically for significance. Genitourinary findings discussed above in detail. - Multiple other findings and study limitations discussed above. Reading Location: [id number]
--- NOTE | 2025-05-16 16:30 | RAD_ITS ---
PROCEDURE: CHEST PA AND LATERAL 05/16/2025 REASON FOR EXAM: ILL TECHNIQUE: Procedure Code: RADCXR Modality: DX Procedure: CHEST PA AND LATERAL COMPARISON: 04/13/2025 FINDINGS: Hardware: None. Heart: The heart size is normal. Mediastinum: The mediastinal contour is unremarkable. Lungs: The lungs are clear. Bones: The bones are unremarkable. RAD/Chest PA and Lateral IMPRESSION: NO ACUTE FINDINGS. Reading [facility]
[2025-05-16] MEDS: Pantoprazole Sodium 40 MG in 0.9% Normal Saline (100mL MB+) 100 ML 300 MG IV (16:33)
[2025-05-16 16:51] LABS: Osmolality, Serum 342 mOsm/KG (275-295)
[2025-05-16] MEDS: Potassium Chloride 10mEq/100mL 10 MEQ/100 ML IV.SOLN. 100 MEQ IV BOLUS ×2 (17:02→18:20)
[2025-05-16] MEDS: Insulin Lispro 100 UNIT in 0.9% Normal Saline (100mL Bag) 99 ML 13.8 UNIT CONT INF (17:11)
[2025-05-16 18:14] LABS: Mucous, Urine 0 SEEN /hpf (<or=2+); Squamous Epithelial Cells - UA 0 SEEN /hpf (0-5)
[2025-05-16 18:15] LABS: Color, Urine Yellow (Yellow); Glucose, Dipstick 1000 mg/dl (Normal); Ketone-Dipstick Negative (Negative); Leukocyte Esterase-Dipstick 100 /ul (Negative); Nitrite-Dipstick Negative (Negative); Occult Blood-Urine 150 /ul (Negative); Protein-Dipstick 30 mg/dl (Negative); Specific Gravity, Urine 1.010 (1.002-1.030); Urine Bilirubin Dipstick Negative (Negative)
[2025-05-16 18:22] LABS: Red Blood Cells-Urine 0-5 SEEN /hpf (0-5)
[2025-05-16] MEDS: Piperacil/Tazobactam 3.375 GM in 0.9% Normal Saline (50mL MB+) 50 ML IV (18:22)
[2025-05-16 18:44] LABS: Magnesium 2.1 mg/dL (1.5-2.2)
[2025-05-16 18:53] LABS: Anion Gap 15 (5-15); Carbon Dioxide 17.9 mmol/L (21.0-32.0); Chloride 100 mmol/L (98-108); Potassium 5.2 mmol/L (3.3-5.1)
[2025-05-16 18:54] LABS: Glucose 665 mg/dL (70-99)
--- NOTE | 2025-05-16 19:45 | ED.RN ---
Patients sister requesting information regarding patient. Rn told sister unfortunately I cannot share any of his medical information over the phone. you may call his phone or come in and see him. Sister has no further questions at this time
[2025-05-16] MEDS: 0.9% Normal Saline (1000mL) 1,000 ML 999 ML IV (21:19)
--- NOTE | 2025-05-16 22:41 | PCM.HP.STD ---
HPI - General General Date of Admission: 05/16/25 Date of Service: 05/16/25 Chief Complaint: Elevated BS secondary to lack on insulin x 2 weeks, cough, N/V, 1 coffee ground emesis. HPI Narrative The patient is a 54 y/o M w/ PMHx: Anxiety an Depression, LUANNE on CPAP, Former tobacco use, Diabetes mellitus type II with chronic neuropathy with history of necrotizing fasciitis, HFpEF, Chronic blind left eye, HTN, HLD, Chronic normocytic anemia/AOCD, Hx ESRD now s/p recent R renal transplant with CKD stage II per prior GFR trending, recent transfer to the [facility] on 04/17/25 following initial admission 04/15/25 but no tertiary beds available secondary to acute pyelonephritis with bacteremia of the transplanted kidney with associated acute encephalopathy and SIRS with acute on chronic renal insufficiency with noted hydronephrosis with urinary obstruction secondary to ureteral calculus now re-presenting 05/16/2025 to the [facility] ED with significantly elevated blood sugars noting he is been off of his insulin for 2 weeks secondary to 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 He notes he has had several days of occasional productive cough, congestion, headache/head congestion in addition but no marked dyspnea sensation. Patient also reports that he has had recent increased urinary frequency with decreased amount and dysuria. In the ED patient workup included T99.1, heart rate 121, BP 140/74, respiratory rate 17, 96% on room air, most recent repeat vitals heart rate 122, BP 79/56 with a MAP of 63, respiratory rate 26, 98% on room air, CBC with WC 10.1, hemoglobin [place] 0.8, MCV 92.6, platelet 269 with left shift and lymphopenia, VBG with pH 7.43, pO2 53, bicarb 21, O2 saturation 88%, CMP with initially sodium 127 with repeat 134 in the ED, potassium initially 4.4 with repeat 5.2 however noted to be hemolyzed, chloride initially 92 with repeat at 100, carbon dioxide initially 17.3 with repeat 17.9, BUN/[place] 36/2.22, GFR 34, glucose initially 93 with repeat 665, serum osmolality 342, phosphorus initially 3.7 with repeat 1.7, magnesium initially 2.0 with repeat 2.1, alk phos 155 otherwise hepatic profile not marked appearing, lipase 18, beta hydroxybutyrate 0.1, urinalysis with clear urine, specific gravity 1.010, urine protein 30, glucose thousand, negative ketone, occult blood 150, negative nitrite, leukocyte esterase 100 with 10-25 urine WBCs with 3+ urine bacteria, urine culture pending per ED, chest x-ray with no acute cardiopulmonary findings, CT abdomen and pelvis without contrast with visualized distal esophagus thick-walled and slightly distended with gas up to 3 cm in diameter possibly correlate to for distal esophagitis, edematous appearing right renal transplant with moderately severe hydronephrosis despite the presence of an adequately positioned intra utero draining stent indicative of potentially stent obstruction, 9 mm fluid collection anterior and extraneous to the urinary bladder worrisome for urinoma or other fluid collection, gas within the urinary bladder, EKG with sinus tachycardia with left anterior fascicular block with no acute evidence of ischemia, rapid COVID/influenza/RSV negative. In the ED patient with noted significant mount of urine in the bladder with Wilhelm catheter placed. Given MAP less than 60 4:05 liters of fluids and systolic less than 90 discussed with ED physician and central line and norepinephrine will be initiated as well as full respiratory viral panel added and patient will also be administered IV vancomycin given recent intervention and prolonged hospitalization. [facility] Medical History Staphylococcus aureus bacteremia Hydronephrosis with urinary obstruction due to ureteral calculus Acute on chronic renal insufficiency Acute pyelonephritis due to bacteria MRSA (methicillin resistant staph aureus) culture positive Anxiety Depression Diabetes Former smoker CPAP (continuous positive airway pressure) dependence Atrial fibrillation Myocardial infarct Congestive heart failure (CHF) Diabetic foot ulcer Gas gangrene of foot Necrotizing fasciitis Diabetic foot infection Type 2 diabetes mellitus with diabetic polyneuropathy Non-pressure chronic ulcer of other part of left foot with fat layer exposed Vision loss of left eye Respiratory failure Hypoxemia COVID-19 COVID-19 Type 2 diabetes mellitus with diabetic polyneuropathy Cellulitis of left lower limb Pulmonary edema Dyspnea Fistula (~12/2018) History of left heart catheterization (LHC) (~06/26/11) Atherosclerotic heart disease of [place] coronary artery without angina pectoris Essential hypertension Problem with dialysis access Chronic renal failure, stage 5 Vision problems Pneumonia Kidney stones Kidney failure Anasarca associated with disorder of kidney Autonomic neuropathy Hypoglycemia Acute hypoxemic respiratory failure Acute on chronic diastolic CHF (congestive heart failure) Retention, urine Obesity (BMI 30-39.9) Acute respiratory failure with hypoxia Hypokalemia Noncompliance Diabetic neuropathy Diabetic nephropathy Diabetic retinopathy ILDA (acute kidney injury) Hypertensive emergency Chewing tobacco nicotine dependence GERD (gastroesophageal reflux disease) Anxiety and depression Diabetes mellitus type II, uncontrolled Blind left eye HLD (hyperlipidemia) Right leg pain Chronic ulcer of 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 Cellulitis and abscess of right leg History of acute myocardial infarction Home Medications ?Medication ?Instructions ?Recorded ?Last Taken ?Type prednisone 5 mg tablet 5 mg PO DAILY steroid 09/18/21 03/10/25 History fluoxetine 10 mg capsule 10 mg PO DAILY 03/24/24 03/09/25 History insulin lispro protamine-lispro See Rx Instructions subcut .tid 03/30/24 03/10/25 Rx 100 unit/mL (50-50) subcutaneous with meals #42 mL pen (Humalog Mix 50-50 KwikPen) mycophenolate sodium 180 mg 360 mg PO BID kidneys 01/26/25 03/10/25 History tablet,delayed release sulfamethoxazole 400 1 tab PO MOWEFR 01/26/25 03/10/25 History mg-trimethoprim 80 mg tablet carvedilol 12.5 mg tablet 12.5 mg PO BID 03/10/25 03/10/25 History escitalopram oxalate 10 mg tablet 10 mg PO DAILY 03/10/25 03/09/25 History aspirin 81 mg chewable tablet 1 tab PO DAILY 04/14/25 Unknown History bupropion HCl 150 mg 24 hr tablet, 150 mg PO DAILY 04/14/25 Unknown History extended release gabapentin 100 mg capsule 100 mg PO QHS 04/14/25 Unknown History Allergy/AdvReac Type Severity Reaction Status Date / Time No Known Allergies Allergy Verified 04/04/25 11:08 Family History Mother Heart disease Hypertension Father Cancer Brother Cancer Diabetes Sister Diabetes Other Alcohol abuse Depression H/O transfusion of whole blood Kidney disease Surgical History Kidney transplant recipient Renal transplant recipient Kidney replaced by transplant History of artificial lens replacement History of arteriovenostomy for renal dialysis (~08/2018) Status post insertion of dialysis catheter (~08/2018) History of appendectomy History of eye surgery History of cholecystectomy Social History household members: spouse Smoking Status: Never smoker second hand exposure: No alcohol intake: never substance use type: does not use caffeine: No what type of physical activity do you participate in: none ROS ROS Narrative Admission Review of Systems: CONSTITUTIONAL: No weight loss, + noted in the ED fever, chills, + priorly reported weakness or fatigue. HEENT: + Head cold/headache, congestion, rhinorrhea. Eyes: No visual loss, blurred vision, double vision or yellow sclerae. Ears, Nose, Throat: No hearing loss, sneezing. SKIN: No rash or itching, lesions, wounds. CARDIOVASCULAR: No chest pain, chest pressure or chest discomfort, palpitations, edema, orthopnea, syncopal events. RESPIRATORY: + Occasionally productive cough. No marked dyspnea, wheezing, hemoptysis. GASTROINTESTINAL: + anorexia, nausea, vomiting, coffee-ground appearing emesis x 1. No diarrhea, abdominal pain, BRBPR. GENITOURINARY: + Dysuria, increased urinary frequency with decreased amount, retention noted in the ED. NEUROLOGICAL: + Headache/head cold. No dizziness, syncope, paralysis, ataxia, numbness or tingling in the extremities, focal weakness, change in bowel or bladder control, seizure. MUSCULOSKELETAL: + muscle, back pain, joint pain or stiffness. HEMATOLOGIC: + Chronic anemia, episode as noted above across brown emesis. LYMPHATICS: No enlarged nodes. No history of splenectomy. PSYCHIATRIC: + History of anxiety and depression. ENDOCRINOLOGIC: No reports of sweating, cold or heat intolerance. No polyuria or polydipsia. ALLERGIES: No history of asthma, hives, eczema or rhinitis. Vital Signs Vital Signs Vital Signs: 05/16/25 13:49 05/16/25 15:48 05/16/25 17:00 Temperature 99.1 F Temperature Source Oral Pulse Rate 121 H 139 H 128 H Respiratory Rate 14 26 H 20 H Blood Pressure 140/74 H 135/118 H 143/113 H Blood Pressure Mean 96 123 123 Pulse Ox 96 96 Oxygen Delivery Method Room Air Room Air 05/16/25 19:00 05/16/25 19:48 05/16/25 21:00 Temperature Temperature Source Pulse Rate 120 H 122 H Respiratory Rate 18 26 H Blood Pressure 83/60 L 101/55 L 79/56 L Blood Pressure Mean 67 70 63 Pulse Ox 97 98 Oxygen Delivery Method Room Air Room Air 05/16/25 21:15 05/16/25 21:31 05/16/25 22:00 Temperature Temperature Source Pulse Rate 118 H 114 H Respiratory Rate 27 H 28 H Blood Pressure 103/57 L 111/61 94/57 L Blood Pressure Mean 71 74 67 Pulse Ox 95 98 95 Oxygen Delivery Method 05/16/25 22:15 05/16/25 22:21 05/16/25 22:28 Temperature 101 F H 101 F H Temperature Source Oral Pulse Rate 116 H 116 H 116 H Respiratory Rate 29 H 29 H 24 H Blood Pressure 84/56 L 84/56 L 116/62 Blood Pressure Mean 65 65 80 Pulse Ox 95 95 98 Oxygen Delivery Method Room Air Weight Weight: 176 lb 9.444 oz Body Mass Index (BMI) 26.8 Physical Exam Narrative Physical Examination: General: Awakens to stimuli but ill-appearing, alert with discussion but fatigued, oriented to self, place and recent events, remains cooperative, laying on his side, ill-appearing, coughing intermittently during evaluation. Skin: Normal color, normal turgor, no icterus, no cyanosis except occasional stage ecchymoses, abrasion, healing abdominal surgical incisions with no concerning erythema or discharge. HEENT: AT/NC, EOMI, PERRLA, dry MM, no carotid bruits or JVD noted. Lungs: Mildly diminished, greater bases, mildly increased respiratory rate but no evidence of any distress, coughing throughout exam noted to be dry, no appreciated rales, ronchi or wheezing. Heart: Tachycardic with regular rhythm; no gallop, rub audible. Abdomen: Soft, overweight, some discomfort to suprapubic palpation, NTTP, ND, hyperactive BS, no appreciated HSM. Extremities: No cyanosis, no clubbing, no significant distal edema noted, evidence status post TMA. Neurological: Awakens to stimuli but ill-appearing, alert with discussion but fatigued, oriented to self, place and recent events, cognitive function near baseline but patient is very fatigued and ill-appearing as noted, pupils equally reactive to light and accommodation, cranial nerves grossly normal, moving all 4 extremities, no focal deficits, strength severely globally decreased Psychiatric: Affect appears fatigued, ill-appearing, no acute evidence of depressive or anxiety feelings but does have underlying history. Results Lab / Micro Data 05/16/25 15:00 05/16/25 18:15 Labs: Laboratory Results - last 24 hr 05/16/25 13:30: WBC Cancelled, Corrected WBC Cancelled, RBC Cancelled, Hgb Cancelled, Hct Cancelled, MCV Cancelled, MCH Cancelled, MCHC Cancelled, RDW Std Deviation Cancelled, RDW Coeff of Tomy Cancelled, Plt Count Cancelled, MPV Cancelled, Immature Gran % (Auto) Cancelled, Neut % (Auto) Cancelled, Lymph % (Auto) Cancelled, [place] % (Auto) Cancelled, Eos % (Auto) Cancelled, Baso % (Auto) Cancelled, Absolute Neuts (auto) Cancelled, Absolute Lymphs (auto) Cancelled, Total Counted Cancelled, Neutrophils % (Manual) Cancelled, Band Neutrophils % Cancelled, Lymphocytes % (Manual) Cancelled, Monocytes % (Manual) Cancelled, Eosinophils % (Manual) Cancelled, Basophils % (Manual) Cancelled, Metamyelocytes % Cancelled, Myelocytes % Cancelled, Promyelocytes % Cancelled, Blast Cells % Cancelled, Plasma Cell % (Manual) Cancelled, Other Cells % Cancelled, Nucleated RBC % Cancelled, Nucleated RBCs/100 WBC Cancelled, Differential Comment Cancelled, Diff Path Review Cancelled, Hypersegmented Neuts Cancelled, Atypical Lymphocytes Cancelled, Reactive Lymphocytes Cancelled, Smudge Cells Cancelled, Toxic Granulation Cancelled, Toxic Vacuolation Cancelled, Dohle Bodies Cancelled, Leoncio Rods Cancelled, Platelet Estimate Cancelled, Plt Morphology Comment Cancelled, RBC Morphology Cancelled 05/16/25 13:30: RBC Morphology Cancelled, Polychromasia Cancelled, Hypochromasia Cancelled, Basophilic Stippling Cancelled, Anisocytosis Cancelled, Microcytosis Cancelled, Macrocytosis Cancelled, Spherocytes Cancelled, Sickle Cells Cancelled, Target Cells Cancelled, Tear Drop Cells Cancelled, Ovalocytes Cancelled, Stomatocytes Cancelled, Ascencio-Kimmell Bodies Cancelled, Dawes Cells Cancelled, Bite Cells Cancelled, Crenated Cell Cancelled, Acanthocytes (Spur) Cancelled, Rouleaux Cancelled, Schistocytes Cancelled, Sodium 127 L, Potassium 4.4, Chloride 92 L, Carbon Dioxide 17.3 L, Anion Gap 18 H, BUN 36 H, Creatinine 2.22 H, Estim Creat Clear Calc 35.95 L, Est GFR (MDRD) Non-Af 34 L, BUN/Creatinine Ratio 16.3, Glucose 983 H*, Calcium 9.4, Phosphorus 3.7, Magnesium 2.0, Total Bilirubin 0.72, AST 22, ALT 13, Alkaline Phosphatase 155 H, Total Protein 7.6, Albumin 3.4 L, Globulin 4.2, Albumin/Globulin Ratio 0.8 L, Lipase 18, b-Hydroxybutyric mmol/L 0.1 05/16/25 15:00: WBC 10.1, RBC 4.06 L, Hgb 11.8 L, Hct 37.6 L, MCV 92.6, MCH 29.1, MCHC 31.4 L, RDW Std Deviation 47.9 H, RDW Coeff of Tomy 14.0, Plt Count 269, MPV 9.1, Immature Gran % (Auto) 0.600, Neut % (Auto) 86.9 H, Lymph % (Auto) 6.2 L, [place] % (Auto) 6.1, Eos % (Auto) 0.0, Baso % (Auto) 0.2, Absolute Neuts (auto) 8.8 H, Absolute Lymphs (auto) 0.63 L, Nucleated RBC % 0, Platelet Estimate ADEQUATE, RBC Morphology NORM C+C 05/16/25 16:05: Serum Osmolality 342 H 05/16/25 18:00: Urine Color Yellow, Urine Clarity Clear, Urine pH 6.0, Ur Specific [place] 1.010, Urine Protein 30 H, Urine Glucose (UA) 1000 H, Urine Ketones Negative, Urine Occult Blood 150 H, Urine Nitrite Negative, Urine Bilirubin Negative, Urine Urobilinogen Normal, Ur Leukocyte Esterase 100 H, Urine RBC 0-5 SEEN, Urine WBC 10-25 SEEN, Ur Squamous Epith Cells 0 SEEN, Urine Bacteria 3+, Urine Mucus 0 SEEN, POC Glucose > 500 H* 05/16/25 18:15: Sodium 134, Potassium 5.2 H, Chloride 100, Carbon Dioxide 17.9 L, Anion Gap 15, Glucose 665 H*, Phosphorus 1.7 L, Magnesium 2.1 05/16/25 20:02: POC Glucose 420 H Micro: Microbiology 05/16/25 14:17 Mucosa - Nose SARS-CoV-2, Influenza & RSV (PCR) - Final ABG Data ABG results: ABG 05/16/25 14:36 Specimen Type ANTHONY Sample Site Not entered VBG pH 7.43 H VBG pO2 53 H VBG HCO3 21 L VBG Total CO2 22 L VBG O2 Sat (Calc) 88 H VBG Base Excess -3 L POC Mix VBG pCO2 Pt Tmp 32.2 L O2 Delivery Device Not entered Imaging Radiology Impression Abdomen/Pelvis CT 05/16/25 16:08 IMPRESSION: Gastroesophageal findings to be correlated clinically are discussed above in detail. - Edematous appearing right renal transplant with moderately severe hydronephrosis despite the presence of an adequately positioned intraureteral draining stent, may indicate stent obstruction. 9 cm fluid collection anterior and extraneous to the urinary bladder worrisome for urinoma or other fluid collection. Gas within the urinary bladder to be correlated clinically for significance. Genitourinary findings discussed above in detail. - Multiple other findings and study limitations discussed above. Reading Location: [id number] Chest X-Ray 05/16/25 16:30 IMPRESSION: NO ACUTE FINDINGS. Reading [facility] Assessment & Plan Assessment/Plan (1) Septic shock: PLAN: Plan The patient is a 54 y/o M w/ PMHx: Anxiety an Depression, LUANNE on CPAP, Former tobacco use, Diabetes mellitus type II with chronic neuropathy with history of necrotizing fasciitis, HFpEF, Chronic blind left eye, HTN, HLD, Chronic normocytic anemia/AOCD, Hx ESRD now s/p recent R renal transplant with CKD stage II per prior GFR trending, recent transfer to the [facility] on 04/17/25 following initial admission 04/15/25 but no tertiary beds available secondary to acute pyelonephritis with bacteremia of the transplanted kidney with associated acute encephalopathy and SIRS with acute on chronic renal insufficiency with noted hydronephrosis with urinary obstruction secondary to ureteral calculus now re-presenting 05/16/2025 to the [facility] ED with significantly elevated blood sugars noting he is been off of his insulin for 2 weeks secondary to 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 #1. Acute Septic Shock secondary to acute complicated urinary tract infection status post recent ureteral stent intervention at [facility] with edematous right renal transplant with moderately severe hydronephrosis despite presence of an intraureter draining stent possibly indicative of stent obstruction with a 9 cm fluid collection anterior and extraneous to the urinary bladder worrisome for urinoma complicated by recent pyelonephritis of the transplant kidney with associated bacteremia: Patient with evidence of sepsis-induced organ dysfunction/tissue hypoperfusion and sepsis induced hypotension despite adequate fluid administration as evidenced by MAP less than 65 despite significant aggressive hydration, hypotension, lactic acidosis, acute kidney injury with creatinine greater than 2), will admit patient to the ICU, will consult metal baler per protocol, currently urology has advised transfer to [facility] and they do not see male patients thus will defer urology consult as patient is awaiting tertiary facility transition, continue wilhelm catheter and if remains for > 48 hours obtain repeat renal US to assess transplant kidney, will maintain on cardiac monitoring, continue to maintain on cardiac monitoring, will continue norepinephrine with central line placed per ED and avoid further aggressive IV fluids given HFpEF history, will maintain on IV abx regimen w/ vancomycin and Zosyn broad-spectrum antibiotic therapy given recent prolonged hospitalizations and intervention, will initiate stress dose steroids cautiously given #3 and temporally hold oral prednisone steroid, Bld Cx x 2 obtained in the ED. #2. Significant hyperglycemia with HHS with diabetes mellitus type 2 with chronic neuropathy as well as previous diabetic foot wounds and previous episode of necrotizing fasciitis: Will continue on insulin drip, check serial K+, glucose w/ IVF changes pending these levels, serial chemistry, obtain mag, phos daily w/ repletion as needed, transition to home SC regimen once bicarb is appropriate level and blood sugars are also appropriate level with ability to take oral intake given recent history of nausea and emesis, maintain on IV PPI as noted, hemoglobin A1c requested. Nutrition consulted for recommendations. Patient will strongly need to be advised/educated on taking insulin and if this means calling EMS to be taken to the hospital for insulin therapies or potentially being set up with something in town where he can have insulin delivered to his home. Will continue chronic gabapentin regimen with hold as needed for sedation and alteration as needed pending renal function repeat. #3. Coffee-ground emesis with concern for acute GI bleed with image findings concerning for acute esophagitis: Admission hemoglobin 11.8, stable compared to previous however he was dry upon presentation with most recently noted baseline 10-11, will continue to cycle H&H's, will maintain on IV Protonix, awaiting transfer to [facility] tertiary facility but if prolonged may need to involve gastroenterology for upper endoscopy, will maintain aggressive antiemetic regimen to avoid further bouts of emesis as able, shanita requested. #4. Suspected Acute Viral Syndrome, complicating #3 with possible Mouna-Aldrich tear given significant recent coughing/emesis bouts complicated by also what appears to be may be esophagitis: Currently on room air but if necessary will maintain on oxygen with wean as tolerated to room air, continue ATC duonebs, PRN albuterol, full respiratory viral panel requested, HOB, IS parameters w/ pending sputum cultures, urine antigens with high community load noted for rhinovirus of note, monitor for superimposed bacterial pneumonia transition, will have as needed cough regimen. #5. ILDA on Hx ESRD now s/p recent R renal transplant with CKD stage II per prior GFR trending secondary to likely #1 complicated by #2, #3 and poor intake secondary to #4: Admission BUN/Cr 36/2.22, GFR 34 normally consistent with stage II following his recent transplant, prior baseline creatinine noted to be 0.9-1.1, most recently 04/17/2025 creatinine 0.98. Patient already aggressively hydrated in the ED, will very judiciously continue, transition to norepinephrine pressor therapy as noted above, continue treatment as noted above #1, #2, #3, #4, requested FeNa assessment. Patient is awaiting tertiary facility transfer to [facility] however if there is prolonged transfer delay low threshold to involve nephrology if necessary. Temporarily holding prednisone therapy as well as mycophenolate given infectious presentation as noted above with planned stress dose steroids, holding Bactrim given significant broad-spectrum antibiotic therapy concurrently as noted. #6. HFpEF: Most recent echocardiogram noted 04/16/2025 with EF 65 to 70%, stage I diastolic dysfunction, moderate concentric LVH, mild focal AV thickening, monitor for overload as patient was administered 4 L of fluids in the ED prior to initiation of norepinephrine therapy, will hold on continued aggressive fluids and be very judicious, not on statin therapy per current list, holding beta-elizabeth therapy, not on TOM/ARB likely secondary to renal disease, not on any diuretic per current list, continue baby aspirin. #7. Anxiety and depression: Clarifying as patient is listed on both escitalopram and fluoxetine in addition to bupropion, once clarified may continue with hold parameters/alteration in dosing as needed based on renal function. #8. Hypertension: Holding all hypertensive regimen given hypotensive presentation with septic shock as noted, add back once clinically appropriate. #9. Hyperlipidemia: Per current list on a regimen, defer to outpatient. #10. Chronic normocytic anemia/AOCD: Admission hemoglobin 11.8, MCV 92.6 however significantly dehydrated, baseline noted previously -, continue to closely trend. #11. LUANNE: Given recent bouts of nausea and emesis will temporally hold CPAP usage, supplemental oxygen will be continued nightly. #12. DVT prophylaxis: Heparin. #13. CODE status: Patient does not have any healthcare power of commercial litigation attorney or living will in place but his friend Ying would be his medical decision-maker if necessary. Discussed CODE status at length including difference between FULL code, DNR-CCA and DNR-CC status. Following discussions about the differences in these status, requested Full Code status. Advanced Care Planning Face to Face Time: 16 minutes. Charges/Coding Visit Charges Inpatient E&M: 33375 Init Hosp L3 Procedures Hospitalists Procedures: 30562 Advncd Care Plan 30 Min
[2025-05-16] MEDS: Vancomycin HCl 2,000 MG in 0.9% Normal Saline (500mL Bag) 500 ML 250 MG IV (23:05)
[2025-05-16 23:17] LABS: Magnesium 2.0 mg/dL (1.5-2.2)
[2025-05-16 23:18] LABS: Anion Gap 13 (5-15); Carbon Dioxide 18.1 mmol/L (21.0-32.0); Chloride 109 mmol/L (98-108); Potassium 4.0 mmol/L (3.3-5.1)
--- OUTSIDE RECORDS SUMMARY | 2025-05-16 23:20 | XMS RPT_ITS | CCD ---
Author Organization [facility] Care Team Providers Care Window Installer Name Role Phone Ewa NORTON, Zaida Primary Care Provider Dinesh Vick DO, Christine Unavailable Heena Adams Unavailable Satish Phan MD Unavailable Dr. Zaida Gaston Primary Care Provider 1([facility])[phone] Dr. Toni Nelson Emergency Provider 1([facility])[phone] Henry Padilla Admit Provider 1([facility])[phone] Henry Padilla Attending Provider Dr. Henry Padilla Other Provider 1([facility])[phone] Shruti Jara Attending Provider Dr. Shruti Jara Other Provider 1([facility])[phone] Zaida Gaston Primary Care Provider 1([facility])[phone] Dr. Zaida Gaston Referring Provider 1([facility])[phone] Vj Cabral Attending Provider 1([facility])[phone] Dr. Toni Nelson Emergency Provider 1([facility])[phone] Isamar Smith Admit Provider Dr. Isamar Smith Referring Provider 1([facility])[phone] Dr. Isamar Smith Other Provider 1([facility])[phone] John Darnell Other Provider Dr. Joao Hayes Attending Provider 1([facility])[phone] Joao Hayes Other Provider Dr. Loida Montiel Other Provider Dr. Dona Medina Other Provider Dr. oJhn Darnell Attending Provider Dr. Shruti Jara Attending Provider Dr. Shruti Jara Other Provider Dr. Satish Nava Other Provider Zaida Gaston MD Primary Care Provider Dinesh Vick DO, Christine Unavailable Heena Adams Unavailable Satish Phan MD Unavailable Dr. Zaida Gaston Primary Care Provider Heena Adams Unavailable Zaida Gaston MD Primary Care Provider Dinesh Vick DO, Christine Unavailable Heena Adams Unavailable Satish Phan MD Unavailable [facility], Verna Unavailable Dr. Zaida Gaston Primary Care Provider Dr. Waleska Phan Attending Provider Dr. Dona Medina Referring Provider Dr. Dona Medina Other Provider Ashli RATE AND COST ANALYST, RATE AND COST ANALYST-C Suzanne E Attending Provider Ashli RATE AND COST ANALYST, RATE AND COST ANALYST-C Suzanne E Referring Provider Aureliano RATE AND COST ANALYST, RATE AND COST ANALYST-C Jenna Attending Provider Aureliano RATE AND COST ANALYST, RATE AND COST ANALYST-C Jenna Referring Provider Dr. Mayo Levy Referring Provider Dr. Kerrie Henderson Attending Provider Dr. Zaida Gaston Referring Provider Amanda ROCHA, AJ Schaefer Attending Provider LAISHA Meza Attending Provider Dinesh Vick DO, Christine Unavailable Dr. Zaida Gaston Primary Care Provider Dr. Zaida Gaston Primary Care Provider Dr. Dona Medina Other Provider Ashli RATE AND COST ANALYST, RATE AND COST ANALYST-C Suzanne E Attending Provider Ashli RATE AND COST ANALYST, RATE AND COST ANALYST-C Suzanne E Referring Provider [phone] Dr. Chuy Santiago Emergency Provider Dr. Mayo Levy Admit Provider Dr. Mayo Levy Other Provider Delmy Billy Other Provider Unavailable Dr. Amy Ureña Other Provider Dr. William Hayes Other Provider Dr. Kerrie Henderson Other Provider Dr. Awa Martínez Other Provider Bladimir RATE AND COST ANALYST, RATE AND COST ANALYST-C Vivian Other Provider Unavail justin Funes RATE AND COST ANALYST, RATE AND COST ANALYST-C John Other Provider AJ Josue Other Provider [...] Provider Dr. Awa Martínez Other Provider Bladimir RATE AND COST ANALYST, RATE AND COST ANALYST-C Vivian Other Provider Unavail able Shantel RATE AND COST ANALYST, RATE AND COST ANALYST-C John Other Provider AJ Josue Other Provider Unavailable Dr. Satish Nava Other Provider Dr. Shruti Jara Attending Provider [phone] Tylor Rudd Attending Provider Dr. Zaida Gaston Primary Care Provider Dr. Zaida Gaston Referring Provider LAISHA Meza Attending Provider Stephen OPSADAS, CUAUHTEMOC-C Yissel Attending Provider Zaida Gaston MD Primary Care Provider Heena Adams Unavailable Dinesh Vick DO, Christine Unavailable Heena Adams Unavailable Satish Phan MD Unavailable Kortney WORTHINGTON, Conchis Unavailable Unavailable Kortney WORTHINGTON, Conchis Unavailable Unavailable Dr. Zaida Gaston Primary Care Provider Dr. Zaida Gaston Referring Provider LAISHA Meza Attending Provider Stephen POSADAS, CUAUHTEMOC-C Yissel Attending Provider Zaida Gaston MD Primary Care Provider Hedervary GLOBAL COMPENSATION DIRECTOR.Alana POWELL Unavailable AMARA SLOAN Attending Unavailable NIA JAMES Referring Unavailable ZAIDA GASTON Primary Care Unavailable Xiang Perez PA-C Unavailable [phone] Older GLOBAL COMPENSATION DIRECTOR.Delia POWELL Unavailable Bogner PA-C, Amber Unavailable Ewa NORTON, Dr. Cerda Primary Care Provider Ewa NORTON, Dr. Cerda Referring Provider King CIERRA, Dr. Wilson Attending Provider Will CLAIRE, Dr. Bhakta Referring Provider Will CLAIRE, Dr. Bhakta Emergency Provider Ewa NORTON, Dr. Cerda Primary Care Provider Will CLAIRE, Dr. Bhakta Attending Provider Provider , Leona Unavailable Unavailable Leslie CLAIRE, Dr. Muñoz Emergency Provider [facility], Venra Unavailable Leslie CLAIRE, Dr. Muñoz Attending Provider [...] Unavailable Ganta, Zaida Primary Care Unavailable Ganta, Zaiad Referring Unavailable Ganta, Zaida Primary Care Unavailable [...] MARTINEZ Admitting Unavailable DONA MARTINEZ Attending Unavailable [facility], ZAIDA Primary Care Unavailable STACITA, ZAIDA Referring Unavailable GANTA, ZAIDA Primary Care Unavailable ZAIDA GASTON Attending Unavailable [facility], ZAIDA Primary Care [facility]available [facility] Primary Care Unavailable YONY SOLIS Referring Unavailable [facility], ZAIDA Primary Care Unavailable CARLOS ANNE Admitting [...] times a day Blood-Glucose Meter,Continuous (DEXCOM G6 FORESTRY HUNTER) misc (16 sources) Start: 05-18-20 Blood-Glucose Meter,Continuous (DEXCOM G6 FORESTRY HUNTER) misc Indications: Diabetic polyneuropathy associated with type [...] Comment on above: Take 1 capsule by [facility] one time a week. escitalopram 10 mg [...] Comment on above: Take 1 capsule by [facility] daily at bedtime for 180 days. glucagon 3 mg nasal powder (20 sources) Antihypoglycemic Agent Start: 03-30-2021 glucagon 3 mg/actuation nasal spray (BAQSIMI) Use 1 [place] in the nose as needed for low blood sugar. May repeat after 15 minutes using a new device if there is no response. 3 Each 1 03/30/2021 Active Start: 03-30-2021 End: 08-23-2022 glucagon (GLUCAGON EMERGENCY KIT, HUMAN,) 1 mg injection Inject (1)one mg for insulin shock. 3 Each 1 03/30/2021 08/23/2022 Discontinued Comment on above: Use 1 [place] in the n ose as needed for [...] hyperglycemia Type 2 diabetes mellitus with hyperglycemia senior care (current) use of insulin 40-40-60 units subcutaneously [...] on above: Take 1 capsule by [facility] four times a day as needed. losartan [...] region of the penis polyethylene glycol [id number] [id number] mg / potassium chloride 2970 mg / sodium bicarbonate 6740 mg / sodium chloride 5860 mg / sodium sulfate 17749 mg powder for oral solution (1 source) [...] on above: Take 1 capsule by [facility] three times daily. cholecalciferol 0.025 mg ora [...] on above: Take 1 tablet by [facility] q 24 HR. ciprofloxacin 500 mg [...] (4 sources) Patient encounter status; Translations: [Other arts administrator or manager (current) drug therapy] Episodic Other aftercare (1 source) Taking high risk medication; Translations: [Other arts administrator or manager (current) drug therapy] 07-25-2023 Episodic Other aftercare (1 source) Post-discharge follow-up; Translations: [Encounter for follow-up examination after completed treatment for conditions other than malignant neoplasm] 02-05-2025 Episodic Other aftercare (1 source) Other group home (current) drug therapy; Translations: [Medication management] Onset: [...] aftercare (20 sources) Transplant follow-up; Translations: [Other arts administrator or manager (current) drug therapy] Onset: 01-27-2025 Episodic Other aftercare (20 sources) Long-term current use of tacrolimus; Translations: [Encounter for therapeutic drug level monitoring] Onset: 01-27-2025 01-27-2025 Episodic Other aftercare (1 source) oral and maxillofacial surgery (current) use of insulin; Translations: [oral and maxillofacial surgery (current) use of insulin] Onset: 07-28-2024 Episodic [...] Profile (BMP )on 04-20-2025 BUN Normal 4-19 [facility] Comment on above: Result Comment: Canc elled via OM: Order cancelled - Patient discharged Performed By: #### L 500.2500 #### [facility] [address] [place], [address] BUN/CRE Normal 10-20 [facility] Comment on above: Result Comment: Canc elled via OM: Order cancelled - Patient discharged Performed By: #### L 500.2500 #### [facility] [address] [place], [address] Calcium Normal 7.6-11.0 [facility] Comment on above: Result Comment: Canc elled via OM: Order cancelled - Patient discharged Performed By: #### L 500.2500 #### [facility] [address] [place], [address] CL Normal 98-108 [facility] Comment on above: Result Comment: Canc elled via OM: Order cancelled - Patient discharged Performed By: #### L 500.2500 #### [facility] [address] [place], [address] CO2 Normal 21.0-32.0 [facility] Comment on above: Result Comment: Canc elled via OM: Order cancelled - Patient discharged Performed By: #### L 500.2500 #### [facility] [address] [place], [address] CREAT,SERUM Normal 0.70-1.20 [facility] Comment on above: Result Comment: Canc elled via OM: Order cancelled - Patient discharged Performed By: #### L 500.2500 #### [facility] [address] [place], [address] eGFR Normal >60 [facility] Comment on above: Result Comment: Canc elled via OM: Order cancelled - Patient discharged Performed By: #### L 500.2500 #### [facility] [address] [place], [address] GAP Normal 5-15 [facility] Comment on above: Result Comment: Canc elled via OM: Order cancelled - Patient discharged Performed By: #### L 500.2500 #### [facility] [address] [place], [address] GLU Normal 70-99 [facility] Comment on above: Result Comment: Canc elled via OM: Order cancelled - Patient discharged Performed By: #### L 500.2500 #### [facility] [address] [place], [address] Potassium Normal 3.3-5.1 [facility] Comment on above: Result Comment: Canc elled via OM: Order cancelled - Patient discharged Performed By: #### L 500.2500 #### [facility] [address] [place], [address] Basic Metabolic Profile (BMP) Normal 133-145 [facility] Comment on above: Result Comment: Canc elled via OM: Order cancelled - Patient discharged Performed By: #### L 500.2500 #### [facility] [address] [place], [address] CBC W/Diff, Automatedon 08-1 Absolute Neut Normal 2.0-7.7 [facility] Comment on above: Result Comment: Canc elled via OM: Order cancelled - Patient discharged Performed By: #### L 500.2500 #### [facility] [address] [place], [address] HCT Normal 40-54 [facility] Comment on above: Result Comment: Canc elled via OM: Order cancelled - Patient discharged Performed By: #### L 500.2500 #### [facility] [address] [place], [address] HGB Normal 13.0-16.5 [facility] Comment on above: Result Comment: Canc elled via OM: Order cancelled - Patient discharged Performed By: #### L 500.2500 #### [facility] [address] [place], [address] MCH Normal 27.0-32.0 [facility] Comment on above: Result Comment: Canc elled via OM: Order cancelled - Patient discharged Performed By: #### L 500.2500 #### [facility] [address] [place], [address] MCHC Normal 32-36 [facility] Comment on above: Result Comment: Canc elled via OM: Order cancelled - Patient discharged Performed By: #### L 500.2500 #### [facility] [address] [place], [address] MCV Normal 80-94 [facility] Comment on above: Result Comment: Canc elled via OM: Order cancelled - Patient discharged Performed By: #### L 500.2500 #### [facility] [address] [place], [address] NEUT% Normal 47-70 [facility] Comment on above: Result Comment: Canc elled via OM: Order cancelled - Patient discharged Performed By: #### L 500.2500 #### [facility] [address] [place], [address] PLT Normal 150-450 [facility] Comment on above: Result Comment: Canc elled via OM: Order cancelled - Patient discharged Performed By: #### L 500.2500 #### [facility] [address] [place], [address] RBC Normal 4.6-6.2 [facility] Comment on above: Result Comment: Canc elled via OM: Order cancelled - Patient discharged Performed By: #### L 500.2500 #### [facility] [address] [place], [address] RDW CV Normal 11.6-14.6 [facility] Comment on above: Result Comment: Canc elled via OM: Order cancelled - Patient discharged Performed By: #### L 500.2500 #### [facility] [address] [place], [address] RDW SD Normal 35.1-43.9 [facility] Comment on above: Result Comment: Canc elled via OM: Order cancelled - Patient discharged Performed By: #### L 500.2500 #### [facility] [address] [place], [address] WBC Normal 4.4-11.0 [facility] Comment on above: Result Comment: Canc elled via OM: Order cancelled - Patient discharged Performed By: #### L 500.2500 #### [facility] [address] [place], [address] Culture, Blood (WB)on 2024 CUB Blood cultures x2, f rom two different sites No growth in 5 days. Normal [facility] Comment on above: Performed By: #### L 500.2500, L100.0100 #### [facility] [address] [place], [address] Basic Metabolic Profile (BMP )on 04-19-2025 BUN Normal 4-19 [facility] Comment on above: Result Comment: Canc elled via OM: Order cancelled - Patient discharged Performed By: #### L 500.2500, L100.0100 #### [facility] [address] [place], [address] BUN/CRE Normal 10-20 [facility] Comment on above: Result Comment: Canc elled via OM: Order cancelled - Patient discharged Performed By: #### L 500.2500, L100.0100 #### [facility] [address] [place], [address] Calcium Normal 7.6-11.0 [facility] Comment on above: Result Comment: Canc elled via OM: Order cancelled - Patient discharged Performed By: #### L 500.2500, L100.0100 #### [facility] [address] [place], [address] CL Normal 98-108 [facility] Comment on above: Result Comment: Canc elled via OM: Order cancelled - Patient discharged Performed By: #### L 500.2500, L100.0100 #### [facility] [address] [place], [address] CO2 Normal 21.0-32.0 [facility] Comment on above: Result Comment: Canc elled via OM: Order cancelled - Patient discharged Performed By: #### L 500.2500, L100.0100 #### [facility] [address] [place], [address] CREAT,SERUM Normal 0.70-1.20 [facility] Comment on above: Result Comment: Canc elled via OM: Order cancelled - Patient discharged Performed By: #### L 500.2500, L100.0100 #### [facility] [address] [place], [address] eGFR Normal >60 [facility] Comment on above: Result Comment: Canc elled via OM: Order cancelled - Patient discharged Performed By: #### L 500.2500, L100.0100 #### [facility] [address] [place], [address] GAP Normal 5-15 [facility] Comment on above: Result Comment: Canc elled via OM: Order cancelled - Patient discharged Performed By: #### L 500.2500, L100.0100 #### [facility] [address] [place], [address] GLU Normal 70-99 [facility] Comment on above: Result Comment: Canc elled via OM: Order cancelled - Patient discharged Performed By: #### L 500.2500, L100.0100 #### [facility] [address] [place], [address] Potassium Normal 3.3-5.1 [facility] Comment on above: Result Comment: Canc elled via OM: Order cancelled - Patient discharged Performed By: #### L 500.2500, L100.0100 #### [facility] [address] [place], [address] Basic Metabolic Profile (BMP) Normal 133-145 [facility] Comment on above: Result Comment: Canc elled via OM: Order cancelled - Patient discharged Performed By: #### L 500.2500, L100.0100 #### [facility] [address] [place], [address] CBC W/Diff, Automatedon - Absolute Neut Normal 2.0-7.7 [facility] Comment on above: Result Comment: Canc elled via OM: Order cancelled - Patient discharged Performed By: #### L 500.2500, L100.0100 #### [facility] [address] [place], [address] HCT Normal 40-54 [facility] Comment on above: Result Comment: Canc elled via OM: Order cancelled - Patient discharged Performed By: #### L 500.2500, L100.0100 #### [facility] [address] [place], [address] HGB Normal 13.0-16.5 [facility] Comment on above: Result Comment: Canc elled via OM: Order cancelled - Patient discharged Performed By: #### L 500.2500, L100.0100 #### [facility] [address] [place], [address] MCH Normal 27.0-32.0 [facility] Comment on above: Result Comment: Canc elled via OM: Order cancelled - Patient discharged Performed By: #### L 500.2500, L100.0100 #### [facility] [address] [place], [address] MCHC Normal 32-36 [facility] Comment on above: Result Comment: Canc elled via OM: Order cancelled - Patient discharged Performed By: #### L 500.2500, L100.0100 #### [facility] [address] [place], [address] MCV Normal 80-94 [facility] Comment on above: Result Comment: Canc elled via OM: Order cancelled - Patient discharged Performed By: #### L 500.2500, L100.0100 #### [facility] [address] [place], [address] NEUT% Normal 47-70 [facility] Comment on above: Result Comment: Canc elled via OM: Order cancelled - Patient discharged Performed By: #### L 500.2500, L100.0100 #### [facility] [address] [place], [address] PLT Normal 150-450 [facility] Comment on above: Result Comment: Canc elled via OM: Order cancelled - Patient discharged Performed By: #### L 500.2500, L100.0100 #### [facility] [address] [place], [address] RBC Normal 4.6-6.2 [facility] Comment on above: Result Comment: Canc elled via OM: Order cancelled - Patient discharged Performed By: #### L 500.2500, L100.0100 #### [facility] [address] [place], [address] RDW CV Normal 11.6-14.6 [facility] Comment on above: Result Comment: Canc elled via OM: Order cancelled - Patient discharged Performed By: #### L 500.2500, L100.0100 #### [facility] [address] [place], [address] RDW SD Normal 35.1-43.9 [facility] Comment on above: Result Comment: Canc elled via OM: Order cancelled - Patient discharged Performed By: #### L 500.2500, L100.0100 #### [facility] [address] [place], [address] WBC Normal 4.4-11.0 [facility] Comment on above: Result Comment: Canc elled via OM: Order cancelled - Patient discharged Performed By: #### L 500.2500, L100.0100 #### [facility] [address] [place], [address] Basic Metabolic Profile (BMP )on 04-18-2025 BUN Normal 4-19 [facility] Comment on above: Result Comment: Canc elled via OM: Order cancelled - Patient discharged Performed By: #### L 500.2500, L100.0100 #### [facility] [address] [place], [address] BUN/CRE Normal 10-20 [facility] Comment on above: Result Comment: Canc elled via OM: Order cancelled - Patient discharged Performed By: #### L 500.2500, L100.0100 #### [facility] [address] [place], [address] Calcium Normal 7.6-11.0 [facility] Comment on above: Result Comment: Canc elled via OM: Order cancelled - Patient discharged Performed By: #### L 500.2500, L100.0100 #### [facility] [address] [place], [address] CL Normal 98-108 [facility] Comment on above: Result Comment: Canc elled via OM: Order cancelled - Patient discharged Performed By: #### L 500.2500, L100.0100 #### [facility] [address] [place], [address] CO2 Normal 21.0-32.0 [facility] Comment on above: Result Comment: Canc elled via OM: Order cancelled - Patient discharged Performed By: #### L 500.2500, L100.0100 #### [facility] [address] [place], [address] CREAT,SERUM Normal 0.70-1.20 [facility] Comment on above: Result Comment: Canc elled via OM: Order cancelled - Patient discharged Performed By: #### L 500.2500, L100.0100 #### [facility] [address] [place], [address] eGFR Normal >60 [facility] Comment on above: Result Comment: Canc elled via OM: Order cancelled - Patient discharged Performed By: #### L 500.2500, L100.0100 #### [facility] [address] [place], [address] GAP Normal 5-15 [facility] Comment on above: Result Comment: Canc elled via OM: Order cancelled - Patient discharged Performed By: #### L 500.2500, L100.0100 #### [facility] [address] [place], [address] GLU Normal 70-99 [facility] Comment on above: Result Comment: Canc elled via OM: Order cancelled - Patient discharged Performed By: #### L 500.2500, L100.0100 #### [facility] [address] [place], [address] Potassium Normal 3.3-5.1 [facility] Comment on above: Result Comment: Canc elled via OM: Order cancelled - Patient discharged Performed By: #### L 500.2500, L100.0100 #### [facility] [address] [place], [address] Basic Metabolic Profile (BMP) Normal 133-145 [facility] Comment on above: Result Comment: Canc elled via OM: Order cancelled - Patient discharged Performed By: #### L 500.2500, L100.0100 #### [facility] [address] [place], [address] CBC W/Diff, Automatedon 08-1 0-2024 Absolute Neut Normal 2.0-7.7 [facility] Comment on above: Result Comment: Canc elled via OM: Order cancelled - Patient discharged Performed By: #### L 500.2500, L100.0100 #### [facility] [address] [place], [address] HCT Normal 40-54 [facility] Comment on above: Result Comment: Canc elled via OM: Order cancelled - Patient discharged Performed By: #### L 500.2500, L100.0100 #### [facility] [address] [place], [address] HGB Normal 13.0-16.5 [facility] Comment on above: Result Comment: Canc elled via OM: Order cancelled - Patient discharged Performed By: #### L 500.2500, L100.0100 #### [facility] [address] [place], [address] MCH Normal 27.0-32.0 [facility] Comment on above: Result Comment: Canc elled via OM: Order cancelled - Patient discharged Performed By: #### L 500.2500, L100.0100 #### [facility] [address] [place], [address] MCHC Normal 32-36 [facility] Comment on above: Result Comment: Canc elled via OM: Order cancelled - Patient discharged Performed By: #### L 500.2500, L100.0100 #### [facility] [address] [place], [address] MCV Normal 80-94 [facility] Comment on above: Result Comment: Canc elled via OM: Order cancelled - Patient discharged Performed By: #### L 500.2500, L100.0100 #### [facility] [address] [place], [address] NEUT% Normal 47-70 [facility] Comment on above: Result Comment: Canc elled via OM: Order cancelled - Patient discharged Performed By: #### L 500.2500, L100.0100 #### [facility] [address] [place], [address] PLT Normal 150-450 [facility] Comment on above: Result Comment: Canc elled via OM: Order cancelled - Patient discharged Performed By: #### L 500.2500, L100.0100 #### [facility] [address] [place], [address] RBC Normal 4.6-6.2 [facility] Comment on above: Result Comment: Canc elled via OM: Order cancelled - Patient discharged Performed By: #### L 500.2500, L100.0100 #### [facility] [address] [place], [address] RDW CV Normal 11.6-14.6 [facility] Comment on above: Result Comment: Canc elled via OM: Order cancelled - Patient discharged Performed By: #### L 500.2500, L100.0100 #### [facility] [address] [place], [address] RDW SD Normal 35.1-43.9 [facility] Comment on above: Result Comment: Canc elled via OM: Order cancelled - Patient discharged Performed By: #### L 500.2500, L100.0100 #### [facility] [address] [place], [address] WBC Normal 4.4-11.0 [facility] Comment on above: Result Comment: Canc elled via OM: Order cancelled - Patient discharged Performed By: #### L 500.2500, L100.0100 #### [facility] [address] [place], [address] Culture, Blood (WB)on 08-10- 2025 CUB No growth in 5 days. Normal [facility] Comment on above: Performed By: #### L 500.2500, L100.0100 #### [facility] [address] [place], [address] Urine Cultureon 04-18-2025 URC Copy of report sent to Infection Control Printer [id number] 04/18/2527 KOBE. Urine Culture Urine Culture Urine Culture Acinetobacter baumannii Odum Count >100,000 Meth. resistant Staph. aureus Meth. [...] S Vancomycin Islt PARTH 1 S Normal [facility] Comment on above: Performed By: #### L 501.080 #### [facility] [address] [place], [address] Absolute lymphocyte countOrd ered By: Shrtui Jara on 04-17-2025 Lymphocytes Auto (Unsp spec) [#/Vol] 0.97 10*3/uL 0.83-4.51 [facility] Anion gap in Serum or Plasma Ordered By: Shruti Jara on 04-17-2025 Anion gap [Moles/Vol] 11 mmol/L - [facility] Automated lymphocyte count a s percentage of total leukocytesOrdered By: Shruti Jara on 04-17-2025 Lymphocytes/100 WBC Auto (Unsp spec) 20.3 % [facility] BUN/creatinine ratioOrdered By: Shruti Jara on 04-17-2025 Urea nitrogen/Creatinine [Mass ratio] 15.2 mg/mg - [facility] Basic Metabolic Profile (BMP )on 04-17-2025 BUN/CRE 15.2 RATIO Normal - [facility] Comment on above: Performed By: #### L 500.2500, L100.0100 #### [facility] [address] [place], [address] Calcium [Mass/Vol] 8.8 mg/dL Normal 7.6-11.0 [facility] Comment on above: Performed By: #### L 500.2500, L100.0100 #### [facility] [address] [place], [address] Chloride [Moles/Vol] 107 mmol/L Normal 98-108 [facility] Comment on above: Performed By: #### L 500.2500, L100.0100 #### [facility] [address] [place], [address] CO2 [Moles/Vol] 19.1 mmol/L Low 21.0-32.0 [facility] Comment on above: Performed By: #### L 500.2500, L100.0100 #### [facility] [address] [place], [address] Creatinine [Mass/Vol] 0.98 mg/dL Normal 0.70-1.20 [facility] Comment on above: Performed By: #### L 500.2500, L100.0100 #### [facility] [address] [place], [address] ECRCL 81.43 ml/min Normal 50-250 [facility] Comment on above: Performed By: #### L 500.2500, L100.0100 #### [facility] [address] [place], [address] GAP 11 Normal 5-15 [facility] Comment on above: Performed By: #### L 500.2500, L100.0100 #### [facility] [address] [place], [address] GFR/1.73 sq M.predicted among non-blacks MDRD (S/P/Bld) [Vol rate/Area] 91 mL/min/{1.73_m2} Normal >60 [facility] Comment on above: Result Comment: mL/m in/1.73m2 CKD-EPI Creatinine Equation (2020) Performed By: #### L 500.2500, L100.0100 #### [facility] [address] [place], [address] Glucose [Mass/Vol] 219 mg/dL High 70-99 [facility] Comment on above: Performed By: #### L 500.2500, L100.0100 #### [facility] [address] [place], [address] Potassium [Moles/Vol] 3.8 mmol/L Normal 3.3-5.1 [facility] Comment on above: Performed By: #### L 500.2500, L100.0100 #### [facility] [address] [place], [address] Sodium [Moles/Vol] 137 mmol/L Normal 133-145 [facility] Comment on above: Performed By: #### L 500.2500, L100.0100 #### [facility] [address] [place], [address] Urea nitrogen [Mass/Vol] 15 mg/dL Normal 4-19 [facility] Comment on above: Performed By: #### L 500.2500, L100.0100 #### [facility] [address] [place], [address] Basophil percentageOrdered B y: Shruti Jara on 04-17-2025 Basophils/100 WBC (Bld) 0.4 % 0-1 [facility] Bedside Glucoseon 04-17-2025 FINGERSTICK GLU 302 mg/dL High 74-106 [facility] Comment on above: Result Comment: RACHEL GEMENT OF PATIENT CARE PER NURSING PROTOCOL Performed By: #### L 500.2500, L100.0100 #### [facility] [address] [place], [address] FINGERSTICK GLU 372 mg/dL High [address] [facility] Comment on above: Result Comment: RACHEL GEMENT OF PATIENT CARE PER NURSING PROTOCOL Performed By: #### L 500.2500, L100.0100 #### [facility] [address] [place], [address] FINGERSTICK GLU 306 mg/dL High 74-106 [facility] Comment on above: Result Comment: RACHEL GEMENT OF PATIENT CARE PER NURSING PROTOCOL Performed By: #### L 500.2500 #### [facility] [address] [place], [address] FINGERSTICK GLU 195 mg/dL High [address] [place] [address] Comment on above: Result Comment: RACHEL GEMENT OF PATIENT CARE PER NURSING PROTOCOL Performed By: #### L 500.2500, L100.0100 #### [facility] [address] [place], [address] CBC W/Diff, Automatedon 08-0 9-2024 Absolute Lymph 0.97 X10 3/uL Normal 0.83-4.51 [facility] Comment on above: Performed By: #### L 500.2500, L100.0100 #### [facility] [address] [place], [address] Absolute Neut 3.3 X10 3/uL Normal 2.0-7.7 [facility] Comment on above: Performed By: #### L 500.2500, L100.0100 #### [facility] [address] [place], [address] Basophils/100 WBC (Bld) 0.4 % Normal 0-1 [facility] Comment on above: Performed By: #### L 500.2500, L100.0100 #### [facility] [address] [place], [address] Eosinophils/100 WBC (Bld) 1.5 % Normal 0-5 [facility] Comment on above: Performed By: #### L 500.2500, L100.0100 #### [facility] [address] [place], [address] Erythrocyte distribution width (RBC) [Ratio] 12.2 % Normal 11.6-14.6 [facility] Comment on above: Performed By: #### L 500.2500, L100.0100 #### [facility] [address] [place], [address] Hematocrit (Bld) [Volume fraction] 31.3 % Low 40-54 [facility] Comment on above: Performed By: #### L 500.2500, L100.0100 #### [facility] [address] [place], [address] Hemoglobin (Bld) [Mass/Vol] 10.3 g/dL Low 13.0-16.5 [facility] Comment on above: Performed By: #### L 500.2500, L100.0100 #### [facility] [address] [place], [address] IG% 0.400 Normal 0.0-0.9 [facility] Comment on above: Result Comment: IG% - Immature Granulocytes (promyelocytes, myelocytes and metamyelocytes) > 1% indicates that a LEFT SHIFT is Present. Performed By: #### L 500.2500, L100.0100 #### [facility] [address] [place], [address] Lymphocytes/100 WBC (Bld) 20.3 % Normal 19-41 [facility] Comment on above: Performed By: #### L 500.2500, L100.0100 #### [facility] [address] [place], [address] MCH (RBC) [Entitic mass] 29.1 pg Normal 27.0-32.0 [facility] Comment on above: Performed By: #### L 500.2500, L100.0100 #### [facility] [address] [place], [address] MCHC (RBC) [Mass/Vol] 32.9 g/dL Normal 32-36 [facility] Comment on above: Performed By: #### L 500.2500, L100.0100 #### [facility] [address] [place], [address] MCV (RBC) [Entitic vol] 88.4 fL Normal 80-94 [facility] Comment on above: Performed By: #### L 500.2500, L100.0100 #### [facility] [address] [place], [address] Monocytes/100 WBC (Bld) 7.9 % Normal 0-10 [facility] Comment on above: Performed By: #### L 500.2500, L100.0100 #### [facility] [address] [place], [address] Neutrophils/100 WBC (Bld) 69.5 % Normal 47-70 [facility] Comment on above: Performed By: #### L 500.2500, L100.0100 #### [facility] [address] [place], [address] Nucleated RBC (Bld) [#/Vol] 0 10*3/uL Normal 0-5 [facility] Comment on above: Performed By: #### L 500.2500, L100.0100 #### [facility] [address] [place], [address] Platelet mean volume (Bld) [Entitic vol] 10.1 fL Normal 6.2-12.0 [facility] Comment on above: Performed By: #### L 500.2500, L100.0100 #### [facility] [address] [place], [address] Platelets (Bld) [#/Vol] 201 10*3/uL Normal 150-450 [facility] Comment on above: Performed By: #### L 500.2500, L100.0100 #### [facility] [address] [place], [address] RBC (Bld) [#/Vol] 3.54 10*6/uL Low 4.6-6.2 [facility] Comment on above: Performed By: #### L 500.2500, L100.0100 #### [facility] [address] [place], [address] RDW SD 39.8 fl Normal 35.1-43.9 [facility] Comment on above: Performed By: #### L 500.2500, L100.0100 #### [facility] [address] [place], [address] WBC (Bld) [#/Vol] 4.8 10*3/uL Normal 4.4-11.0 [facility] Comment on above: Performed By: #### L 500.2500, L100.0100 #### [facility] [address] [place], [address] Carbon dioxide, total [Moles /volume] in Central venous bloodOrdered By: Shruti Marek on 04-17-2025 CO2 [Moles/Vol] 19.1 mmol/L Low 21.0-32.0 [facility] Chloride assayOrdered By: Na na Marek on 04-17-2025 Chloride [Moles/Vol] 107 mmol/L 98-108 [facility] Culture, Blood (WB)on 2024 CUB Blood [...] Blood (WB) STAPH [facility]UREUS [facility]25 0817 Lashae Fernando. REPORT READ BACK BY . Culture, Blood (WB) MRSA RESULTS CALLED TO XIANG Moya V. 04/17/25 0720 Lashae Fernando. REPORT READ BACK BY . Culture, Blood (WB) Copy of report sent to Infection Control Printer [id number] 04/17/25 0782 KOBE. Culture, Blood (WB) Culture, Blood (WB) Meth. resistant Staph. aureus Amount Growth Growth mecA Testing not performed [employer] Amount Growth Growth Coag Negative Staph Amount [...] S Vancomycin Islt PARTH <=0.5 S Normal [facility] Comment on above: Performed By: #### L 501.080 #### [facility] [address] [place], [address] Eosinophil percentageOrdered By: Shruti Jara on 04-17-2025 Eosinophils/100 WBC (Bld) 1.5 % 0-5 [facility] Erythrocyte distribution wid th ratioOrdered By: Shruti Jara on 04-17-2025 Erythrocyte distribution width (RBC) [Ratio] 12.2 % 11.6-14.6 [facility] Erythrocyte distribution wid th standard deviationOrdered By: Shruti Jara on 04-17-2025 Erythrocyte distribution width (RBC) [Ratio] 39.8 fl 35.1-43.9 [facility] Glomerular filtration rate ( GFR) estimation/1.73 sq m using serum, plasma, or whole bOrdered By: Shruti Jara on 04-17-2025 GFR/1.73 sq M.predicted among non-blacks MDRD (S/P/Bld) [Vol rate/Area] 91 mL/min/{1.73_m2} >60 [facility] deOrdered By: Shruti Jara on 04-17-2025 Glucose [Mass/Vol] 302 mg/dL High 74-106 [facility] Hematocrit Auto (Bld) [Volum e fraction]Ordered By: Shruti Jara 04-17-2025 Hematocrit (Bld) [Volume fraction] 31.3 % Low 40-54 [facility] Hemoglobin measurementOrdere d By: Shruti Jara on 04-17-2025 Hemoglobin (Bld) [Mass/Vol] 10.3 g/dL Low 13.0-16.5 [facility] Immature granulocytes/100 WB C Auto (Bld)Ordered By: Shruti Jara 04-17-2025 Immature granulocytes/100 WBC (Bld) 0.400 % 0.0-0.9 [facility] MCV (mean corpuscular volume ) determinationOrdered By: Shruti Jara 04-17-2025 MCV (RBC) [Entitic vol] 88.4 fL 80-94 [facility] Mean corpuscular hemoglobin (MCH) determinationOrdered By: Shruti Jara on 04-17-2025 MCH (RBC) [Entitic mass] 29.1 pg 27.0-32.0 [facility] Monocyte percentageOrdered B y: Shruti Jara on 04-17-2025 Monocytes/100 WBC (Bld) 7.9 % 0-10 [facility] Neutrophil percentageOrdered By: Shruti Jara on 04-17-2025 Neutrophils/100 WBC (Bld) 69.5 % 47-70 [facility] Platelet countOrdered By: Na na Marek on 04-17-2025 Platelets (Bld) [#/Vol] 201 10*3/uL 150-450 [facility] Potassium measurement (mass/ volume)Ordered By: Shruti Jara on 04-17-2025 Potassium (Unsp spec) [Mass/Vol] 3.8 mmol/L 3.3-5.1 [facility] RBC Auto (Bld) [#/Vol]Ordere d By: Shruti Jara on 04-17-2025 RBC (Bld) [#/Vol] 3.54 10*6/uL Low 4.6-6.2 [facility] Serum creatinine measurement (mass/volume)Ordered By: Shruti Jara on 04-17-2025 Creatinine [Mass/Vol] 0.98 mg/dL 0.70-1.20 [facility] Serum glucose measurement (m ass/volume)Ordered By: Shruti Jara on 04-17-2025 Glucose [Mass/Vol] 219 mg/dL High 70-99 [facility] Serum or plasma calcium regi urement (mass/volume)Ordered By: Shruti Jara on 04-17-2025 Calcium [Mass/Vol] 8.8 mg/dL 7.6-11.0 [facility] Serum or plasma urea nitroge n measurement (mass/volume)Ordered By: Shruti Jara on 04-17-2025 Urea nitrogen [Mass/Vol] 15 mg/dL 4-19 [facility] Sodium levelOrdered By: Shruti Jara on 04-17-2025 Sodium [Moles/Vol] 137 mmol/L 133-145 [facility] Trough vancomycin levelOrder ed By: Satish Nava on 04-17-2025 Vancomycin trough [Mass/Vol] 18.5 ug/mL High 5.0-15.0 [facility] Vancomycin, Trough Levelon 0 04-17-2025 VANCO, TROUGH 18.5 ug/mL High 5.0-15.0 [facility] Comment on above: Order Comment: Comme nts: DRAW 30 MIN PRIOR TO [id number] Result Comment: Nilson mmended goal trough ranges [...] (Ventilator/Healtcare Associated) -Sepsis PLEASE CONTACT PHARMACY SERVICES (#[id number]) FOR INTERPRETATION OF RESULTS. Performed By: #### L 500.2500, L100.0100 #### [facility] [address] [place], [place], [id number] White blood cell (WBC) count Ordered By: Shruti Jara on 04-17-2025 WBC (Bld) [#/Vol] 4.8 10*3/uL 4.4-11.0 [facility] GPC IDon 04-16-2025 GPC ID Enterococcus sp. Not Detected Listeria spp Not Detected NAAT METHOD Testing was performed using nucleic acid amplification Staphylococcus sp. A DETECTED A Streptococcus spp. Not Detected mecA A mecA Resistance Marker Detected A Cat/vanB Not Detected Staphylococcus epidermidis Normal [facility] Comment on above: Performed By: #### L 501.080 #### [facility] [address] [place], [place], [id number] Basic Metabolic Profile (BMP )on 04-16-2025 BUN/CRE 15.0 RATIO Normal 10-20 [facility] Comment on above: Performed By: #### L 500.2500 #### [facility] [address] [place], [address] Calcium [Mass/Vol] 9.0 mg/dL Normal 7.6-11.0 [facility] Comment on above: Performed By: #### L 500.2500 #### [facility] [address] [place], [address] Chloride [Moles/Vol] 106 mmol/L Normal 98-108 [facility] Comment on above: Performed By: #### L 500.2500 #### [facility] [address] [place], [address] CO2 [Moles/Vol] 19.9 mmol/L Low 21.0-32.0 [facility] Comment on above: Performed By: #### L 500.2500 #### [facility] [address] [place], [address] Creatinine [Mass/Vol] 1.08 mg/dL Normal 0.70-1.20 [facility] Comment on above: Performed By: #### L 500.2500 #### [facility] [address] [place], [address] ECRCL 73.89 ml/min Normal 50-250 [facility] Comment on above: Performed By: #### L 500.2500 #### [facility] [address] [place], [address] GAP 10 Normal 5-15 [facility] Comment on above: Performed By: #### L 500.2500 #### [facility] [address] [place], [address] GFR/1.73 sq M.predicted among non-blacks MDRD (S/P/Bld) [Vol rate/Area] 81 mL/min/{1.73_m2} Normal >60 [facility] Comment on above: Result Comment: mL/m in/1.73m2 CKD-EPI Creatinine Equation (2020) Performed By: #### L 500.2500 #### [facility] [address] [place], [address] Glucose [Mass/Vol] 153 mg/dL High 70-99 [facility] Comment on above: Performed By: #### L 500.2500 #### [facility] [address] [place], [address] Potassium [Moles/Vol] 3.5 mmol/L Normal 3.3-5.1 [facility] Comment on above: Performed By: #### L 500.2500 #### [facility] [address] [place], [address] Sodium [Moles/Vol] 135 mmol/L Normal 133-145 [facility] Comment on above: Performed By: #### L 500.2500 #### [facility] [address] [place], [address] Urea nitrogen [Mass/Vol] 16 mg/dL Normal 4-19 [facility] Comment on above: Performed By: #### L 500.2500 #### [facility] [address] [place], [address] Bedside Glucoseon 04-16-2025 FINGERSTICK GLU 268 mg/dL High 74-106 [facility] Comment on above: Result Comment: RACHEL GEMENT OF PATIENT CARE PER NURSING PROTOCOL Performed By: #### L 500.2500 #### [facility] [address] [place], [address] FINGERSTICK GLU 309 mg/dL High 74-106 [facility] Comment on above: Result Comment: RACHEL GEMENT OF PATIENT CARE PER NURSING PROTOCOL Performed By: #### L 500.2500 #### [facility] [address] [place], [address] FINGERSTICK GLU 211 mg/dL High 74-106 [facility] Comment on above: Result Comment: RACHEL GEMENT OF PATIENT CARE PER NURSING PROTOCOL Performed By: #### L 501.080 #### [facility] [address] [place], [address] FINGERSTICK GLU 148 mg/dL High 74-106 [facility] Comment on above: Result Comment: RACHEL GEMENT OF PATIENT CARE PER NURSING PROTOCOL Performed By: #### L 500.2500 #### [facility] [address] [place], [address] FINGERSTICK GLU 220 mg/dL High 74-106 [facility] Comment on above: Result Comment: RACHEL GEMENT OF PATIENT CARE PER NURSING PROTOCOL Performed By: #### L 500.2500 #### [facility] [address] [place], [address] CBC W/Diff, Automatedon 08-0 8-2025 Absolute Lymph 1.31 X10 3/uL Normal 0.83-4.51 [facility] Comment on above: Performed By: #### L 500.2500 #### [facility] [address] [place], [address] Absolute Neut 4.8 X10 3/uL Normal 2.0-7.7 [facility] Comment on above: Performed By: #### L 500.2500 #### [facility] [address] [place], [address] Basophils/100 WBC (Bld) 0.3 % Normal 0-1 [facility] Comment on above: Performed By: #### L 500.2500 #### [facility] [address] [place], [address] Eosinophils/100 WBC (Bld) 0.4 % Normal 0-5 [facility] Comment on above: Performed By: #### L 500.2500 #### [facility] [address] [place], [address] Erythrocyte distribution width (RBC) [Ratio] 12.3 % Normal 11.6-14.6 [facility] Comment on above: Performed By: #### L 500.2500 #### [facility] [address] [place], [address] Hematocrit (Bld) [Volume fraction] 30.4 % Low 40-54 [facility] Comment on above: Performed By: #### L 500.2500 #### [facility] [address] [place], [address] Hemoglobin (Bld) [Mass/Vol] 10.0 g/dL Low 13.0-16.5 [facility] Comment on above: Performed By: #### L 500.2500 #### [facility] [address] [place], [address] IG% 0.100 Normal 0.0-0.9 [facility] Comment on above: Result Comment: IG% - Immature Granulocytes (promyelocytes, myelocytes and metamyelocytes) > 1% indicates that a LEFT SHIFT is Present. Performed By: #### L 500.2500 #### [facility] [address] [place], [address] Lymphocytes/100 WBC (Bld) 19.2 % Normal 19-41 [facility] Comment on above: Performed By: #### L 500.2500 #### [facility] [address] [place], [address] MCH (RBC) [Entitic mass] 29.6 pg Normal 27.0-32.0 [facility] Comment on above: Performed By: #### L 500.2500 #### [facility] [address] [place], [address] MCHC (RBC) [Mass/Vol] 32.9 g/dL Normal 32-36 [facility] Comment on above: Performed By: #### L 500.2500 #### [facility] [address] [place], [address] MCV (RBC) [Entitic vol] 89.9 fL Normal 80-94 [facility] Comment on above: Performed By: #### L 500.2500 #### [facility] [address] [place], [address] Monocytes/100 WBC (Bld) 9.5 % Normal 0-10 [facility] Comment on above: Performed By: #### L 500.2500 #### [facility] [address] [place], [address] Neutrophils/100 WBC (Bld) 70.5 % High 47-70 [facility] Comment on above: Performed By: #### L 500.2500 #### [facility] [address] [place], [address] Nucleated RBC (Bld) [#/Vol] 0 10*3/uL Normal 0-5 [facility] Comment on above: Performed By: #### L 500.2500 #### [facility] [address] [place], [address] Platelet mean volume (Bld) [Entitic vol] 9.4 fL Normal 6.2-12.0 [facility] Comment on above: Performed By: #### L 500.2500 #### [facility] [address] [place], [address] Platelets (Bld) [#/Vol] 197 10*3/uL Normal 150-450 [facility] Comment on above: Performed By: #### L 500.2500 #### [facility] [address] [place], [address] RBC (Bld) [#/Vol] 3.38 10*6/uL Low 4.6-6.2 [facility] Comment on above: Performed By: #### L 500.2500 #### [facility] [address] [place], [address] RDW SD 40.1 fl Normal 35.1-43.9 [facility] Comment on above: Performed By: #### L 500.2500 #### [facility] [address] [place], [place], [address] WBC (Bld) [#/Vol] 6.8 10*3/uL Normal 4.4-11.0 [facility] Comment on above: Performed By: #### L 500.2500 #### [facility] [address] [place], [address] Consultation - Infectious Dx on 04-16-2025 Consultation - Infectious Dx [facility] Medical Records Department [address] [place] [address] Consultation - Infectious Dx 04/16/25 1019 MR#: [id number] Acct: [id number] Name: ITALO BURGOS Rep #: [id number] : 1970 54 From: Satish Nava MD PCP: Dr. Zaida Gaston MD Status:ADM IN Location: [place] [address] Assessment Plan Assessment/Plan (1) Kidney transplant recipient: [...] performed and neg except as noted above. [facility] Medical History MRSA (methicillin resistant staph aureus) [...] (LHC) ( 06/26/11) Atherosclerotic heart disease of [place] coronary artery without angina pectoris Essential hypertension [...] of ap (more content not included)... Normal [facility] Echo Complete W/ Contraston 04-16-2025 Echo Complete W/ Contrast [facility] Cardiovascular Services [address] [place] [address] Echo Complete W/ Contrast 04/16/25 1501 MR#: [id number] Acct: [id number] Name: ITALO BURGOS Rep #: [id number] : 1970 54 From: Anila Flores MD [...] Dictated: 04/16/25 1501 Date Transcribed: 04/16/25 1640 Aircraft Sales Representative: Signed Normal [facility] Echocardiogram study reportO rdered By: Anila Flores on 04-16-2025 Study report [facility] Work Phone: Basic Metabolic Profile (BMP )on 04-15-2025 BUN/CRE 19.3 RATIO Normal 10-20 [facility] Comment on above: Performed By: #### L 500.2500, L100.0100 #### [facility] [address] [place], [address] Calcium [Mass/Vol] 9.1 mg/dL Normal 7.6-11.0 [facility] Comment on above: Performed By: #### L 500.2500, L100.0100 #### [facility] [address] [place], [address] Chloride [Moles/Vol] 104 mmol/L Normal 98-108 [facility] Comment on above: Performed By: #### L 500.2500, L100.0100 #### [facility] [address] [place], [address] CO2 [Moles/Vol] 21.9 mmol/L Normal 21.0-32.0 [facility] Comment on above: Performed By: #### L 500.2500, L100.0100 #### [facility] [address] [place], [address] Creatinine [Mass/Vol] 1.10 mg/dL Normal 0.70-1.20 [facility] Comment on above: Performed By: #### L 500.2500, L100.0100 #### [facility] [address] [place], [address] ECRCL 72.55 ml/min Normal 50-250 [facility] Comment on above: Performed By: #### L 500.2500, L100.0100 #### [facility] [address] [place], [address] GAP 9 Normal 5-15 [facility] Comment on above: Performed By: #### L 500.2500, L100.0100 #### [facility] [address] [place], [address] GFR/1.73 sq M.predicted among non-blacks MDRD (S/P/Bld) [Vol rate/Area] 79 mL/min/{1.73_m2} Normal >60 [facility] Comment on above: Result Comment: mL/m in/1.73m2 CKD-EPI Creatinine Equation (2020) Performed By: #### L 500.2500, L100.0100 #### [facility] [address] [place], [address] Glucose [Mass/Vol] 267 mg/dL High 70-99 [facility] Comment on above: Performed By: #### L 500.2500, L100.0100 #### [facility] [address] [place], [address] Potassium [Moles/Vol] 4.1 mmol/L Normal 3.3-5.1 [facility] Comment on above: Performed By: #### L 500.2500, L100.0100 #### [facility] [address] [place], [address] Sodium [Moles/Vol] 136 mmol/L Normal 133-145 [facility] Comment on above: Performed By: #### L 500.2500, L100.0100 #### [facility] [address] [place], [address] Urea nitrogen [Mass/Vol] 21 mg/dL High 4-19 [facility] Comment on above: Performed By: #### L 500.2500, L100.0100 #### [facility] [address] [place], [address] Bedside Glucoseon 04-15-2025 FINGERSTICK GLU 331 mg/dL High 74-106 [facility] Comment on above: Result Comment: RACHEL GEMENT OF PATIENT CARE PER NURSING PROTOCOL Performed By: #### L 501.080 #### [facility] [address] [place], [address] FINGERSTICK GLU 241 mg/dL High 74-106 [facility] Comment on above: Result Comment: RACHEL GEMENT OF PATIENT CARE PER NURSING PROTOCOL Performed By: #### L 501.080 #### [facility] [address] [place], [address] CBC W/Diff, Automatedon 08-0 7-2024 Absolute Lymph 0.92 X10 3/uL Normal 0.83-4.51 [facility] Comment on above: Performed By: #### L 500.2500, L100.0100 #### [facility] [address] [place], [address] Absolute Neut 9.8 X10 3/uL High 2.0-7.7 [facility] Comment on above: Performed By: #### L 500.2500, L100.0100 #### [facility] [address] [place], [address] Basophils/100 WBC (Bld) 0.3 % Normal 0-1 [facility] Comment on above: Performed By: #### L 500.2500, L100.0100 #### [facility] [address] [place], [address] Eosinophils/100 WBC (Bld) 0.2 % Normal 0-5 [facility] Comment on above: Performed By: #### L 500.2500, L100.0100 #### [facility] [address] [place], [address] Erythrocyte distribution width (RBC) [Ratio] 12.5 % Normal 11.6-14.6 [facility] Comment on above: Performed By: #### L 500.2500, L100.0100 #### [facility] [address] [place], [address] Hematocrit (Bld) [Volume fraction] 34.4 % Low 40-54 [facility] Comment on above: Performed By: #### L 500.2500, L100.0100 #### [facility] [address] [place], [address] Hemoglobin (Bld) [Mass/Vol] 11.3 g/dL Low 13.0-16.5 [facility] Comment on above: Performed By: #### L 500.2500, L100.0100 #### [facility] [address] [place], [address] IG% 0.300 Normal 0.0-0.9 [facility] Comment on above: Result Comment: IG% - Immature Granulocytes (promyelocytes, myelocytes and metamyelocytes) > 1% indicates that a LEFT SHIFT is Present. Performed By: #### L 500.2500, L100.0100 #### [facility] [address] [place], [address] Lymphocytes/100 WBC (Bld) 7.9 % Low 19-41 [facility] Comment on above: Performed By: #### L 500.2500, L100.0100 #### [facility] [address] [place], [address] MCH (RBC) [Entitic mass] 29.1 pg Normal 27.0-32.0 [facility] Comment on above: Performed By: #### L 500.2500, L100.0100 #### [facility] [address] [place], [address] MCHC (RBC) [Mass/Vol] 32.8 g/dL Normal 32-36 [facility] Comment on above: Performed By: #### L 500.2500, L100.0100 #### [facility] [address] [place], [address] MCV (RBC) [Entitic vol] 88.7 fL Normal 80-94 [facility] Comment on above: Performed By: #### L 500.2500, L100.0100 #### [facility] [address] [place], [address] Monocytes/100 WBC (Bld) 7.4 % Normal 0-10 [facility] Comment on above: Performed By: #### L 500.2500, L100.0100 #### [facility] [address] [place], [address] Neutrophils/100 WBC (Bld) 83.9 % High 47-70 [facility] Comment on above: Performed By: #### L 500.2500, L100.0100 #### [facility] [address] [place], [address] Nucleated RBC (Bld) [#/Vol] 0 10*3/uL Normal 0-5 [facility] Comment on above: Performed By: #### L 500.2500, L100.0100 #### [facility] [address] [place], [address] Platelet mean volume (Bld) [Entitic vol] 9.1 fL Normal 6.2-12.0 [facility] Comment on above: Performed By: #### L 500.2500, L100.0100 #### [facility] [address] [place], [address] Platelets (Bld) [#/Vol] 224 10*3/uL Normal 150-450 [facility] Comment on above: Performed By: #### L 500.2500, L100.0100 #### [facility] [address] [place], [address] RBC (Bld) [#/Vol] 3.88 10*6/uL Low 4.6-6.2 [facility] Comment on above: Performed By: #### L 500.2500, L100.0100 #### [facility] [address] [place], [address] RDW SD 40.5 fl Normal 35.1-43.9 [facility] Comment on above: Performed By: #### L 500.2500, L100.0100 #### [facility] [address] [place], [place], [address] WBC (Bld) [#/Vol] 11.6 10*3/uL High 4.4-11.0 [facility] Comment on above: Performed By: #### L 500.2500, L100.0100 #### [facility] [address] [place], [place], [address] [facility] deOrdered By: Chuy Santiago on 04-15-2025 Glucose [Mass/Vol] 241 mg/dL High 74-106 [facility] Comment on above: MANAGEMENT OF PATIEN T CARE PER NURSING PROTOCOL H AND P Exam - Hospitaliston 04-15-2025 H&P Exam - Hospitalist [facility] Medical Records Department [address] [place] [address] H P Exam - Hospitalist 04/15/25 0944 MR#: [id number] Acct: [id number] Name: ITALO BURGOS Rep #: [id number] : 1970 54 From: Shruti Jara MD PCP: Dr. Zaida Gaston MD Status:ADM IN Location: [place] [address] HPI - General General Date of Admission: [...] right kidney transplant and follows up with [facility]. He said he also had a history of kidney stones and had been scheduled to follow-up at [facility] where he usually goes for the right [...] stated the patient should be transferred to [facility] as he could not do an intervention here in light of him being a kidney transplant patient. Patient was accepted at [facility]. However after staying overnight in the ED and now getting a bed at [facility], decision was made to admit patient to us to [facility] pending transfer. Patient is understanding of the [...] is currently homeless and lives in a nursing home. [facility] Medical History MRSA (methicillin resistant staph aureus) [...] (LHC) ( 06/26/11) Atherosclerotic heart disease of [place] coronary artery without angina pectoris Essential hypertension [...] DAILY ster (more content not included)... Normal [facility] Lactic Acidon 04-15-2025 Lactate [Moles/Vol] 1.4 mmol/L Normal 0.0-2.0 [facility] Comment on above: Order Comment: Comme nts: if result >2, system reflex orders 2nd test @ 4hrsY Performed By: #### L 501.080 #### [facility] [address] [place], [address] 12 Lead EKGon 04-14-2025 12 Lead EKG [facility] Cardiovascular Services [address] [place] [address] 12 Lead EKG 04/14/25 1731 MR#: [id number] Acct: [id number] Name: ITALO BURGOS Rep #: [id number] : 1970 54 From: Anila Flores MD Attending Dr: Dr. Shruti Jara MD Status: DI S IN Ordering Dr: Chuy Santiago MD Date: 04/14/25 Location: [facility] Sex: M C Admitted: 04/15/25 Test Reason [...] Abnormal ECG Confirmed by ANILA FLORES ([id number]), video effects editor GRAEME ACEVEDO ([id number]) on 04/19/2025 8:08:10 AM Referred By: Confirmed By: ANILA FLORES 04/19/25 0808 Date Anila Flores MD CC: Dr. Zaida Gaston MD; Dr. Shruti Jara MD; Dr. Chuy Santiago MD Signed Normal [facility] Abdomen/Pelvis without Conto n 04-14-2025 Abdomen/Pelvis without Cont [facility] Imaging Services [address] [place] [id number] Abdomen/Pelvis without Cont MR#: [id number] Acct: [id number] Name: ITALO BURGOS Rep #: [id number] : 1970 M 54 From: Rodrigo Linn MD PCP: Dr. Zaida Gaston MD Status: REG ER Study: Abdomen/Pelvis without Cont Date of Exam: 03/03 Exam# [id number] Ordering Dr: Chuy Santiago MD PROCEDURE: ABDOMEN/PELVIS [...] cholecystectomy. Unremarkable liver, pancreas, spleen, adrenal glands. [place] kidneys are mildly atrophic. There is a [...] infection is possible. Possible cystitis. Reading Location: [place] [address] CC: Dr. Zaida Gaston MD; Dr. Chuy Santiago MD Aircraft Sales Representative: Signed Normal [facility] Absolute lymphocyte countOrd ered By: Chuy Santiago on 04-14-2025 Lymphocytes Auto (Unsp spec) [#/Vol] 1.53 10*3/uL 0.83-4.51 [facility] Absolute neutrophil countOrd ered By: Chuycholo Santiago on 04-14-2025 Neutrophils (Bld) [#/Vol] 9.5 10*3/uL High 2.0-7.7 [facility] Activated partial thrombopla stin time (aPTT) in platelet poor plasma by coagulation aOrdered By: Chuy Santiago on 04-14-2025 aPTT Coag (PPP) [Time] 35.4 s 24.1-36.2 [facility] Anion gap in Serum or Plasma Ordered By: Chuy Santiago on 04-14-2025 Anion gap [Moles/Vol] 16 mmol/L High 5-15 [facility] Automated lymphocyte count a s percentage of total leukocytesOrdered By: Chuy Santiago on 04-14-2025 Lymphocytes/100 WBC Auto (Unsp spec) 12.2 % Low 19-41 [facility] BUN/creatinine ratioOrdered By: Chuy Santiago on 04-14-2025 Urea nitrogen/Creatinine [Mass ratio] 15.9 mg/mg 10-20 [facility] Basophil percentageOrdered B y: Chuy Santiago on 04-14-2025 Basophils/100 WBC (Bld) 0.3 % 0-1 [facility] Bedside Glucoseon 04-14-2025 FINGERSTICK GLU 224 mg/dL High 74-106 [facility] Comment on above: Result Comment: RACHEL ALLEN OF PATIENT CARE PER NURSING PROTOCOL Performed By: #### L 500.2500 #### [facility] [address] [place], [address] Bilirubin Test strip Ql (U)O rdered By: Chuy Santiago on 04-14-2025 Bilirubin Ql (U) Negative Negative [facility] Bilirubin, totalOrdered By: Chuy Santiago on 04-14-2025 Bilirubin [Mass/Vol] 0.82 mg/dL 0.00-1.30 [facility] Blood cultureOrdered By: Chuy Santiago on 04-14-2025 Bacteria identified Cx Nom (Bld) Meth. resistant Staph. aureus Abnormal [facility] Bacteria identified Cx Nom (Bld) Negative Abnormal [facility] CBC W/Diff, Automatedon Absolute Lymph 1.53 X10 3/uL Normal 0.83-4.51 [facility] Comment on above: Performed By: #### L 501.080 #### [facility] [address] [place], [address] Absolute Neut 9.5 X10 3/uL High 2.0-7.7 [facility] Comment on above: Performed By: #### L 501.080 #### [facility] [address] [place], [address] Basophils/100 WBC (Bld) 0.3 % Normal 0-1 [facility] Comment on above: Performed By: #### L 501.080 #### [facility] [address] [place], [address] Eosinophils/100 WBC (Bld) 0.0 % Normal 0-5 [facility] Comment on above: Performed By: #### L 501.080 #### [facility] [address] [place], [address] Erythrocyte distribution width (RBC) [Ratio] 12.3 % Normal 11.6-14.6 [facility] Comment on above: Performed By: #### L 501.080 #### [facility] [address] [place], [address] Hematocrit (Bld) [Volume fraction] 39.7 % Low 40-54 [facility] Comment on above: Performed By: #### L 501.080 #### [facility] [address] [place], [address] Hemoglobin (Bld) [Mass/Vol] 13.3 g/dL Normal 13.0-16.5 [facility] Comment on above: Performed By: #### L 501.080 #### [facility] [address] [place], [address] IG% 0.500 Normal 0.0-0.9 [facility] Comment on above: Result Comment: IG% - Immature Granulocytes (promyelocytes, myelocytes and metamyelocytes) > 1% indicates that a LEFT SHIFT is Present. Performed By: #### L 501.080 #### [facility] [address] [place], [address] Lymphocytes/100 WBC (Bld) 12.2 % Low 19-41 [facility] Comment on above: Performed By: #### L 501.080 #### [facility] [address] [place], [address] MCH (RBC) [Entitic mass] 29.2 pg Normal 27.0-32.0 [facility] Comment on above: Performed By: #### L 501.080 #### [facility] [address] [place], [address] MCHC (RBC) [Mass/Vol] 33.5 g/dL Normal 32-36 [facility] Comment on above: Performed By: #### L 501.080 #### [facility] [address] [place], [address] MCV (RBC) [Entitic vol] 87.1 fL Normal 80-94 [facility] Comment on above: Performed By: #### L 501.080 #### [facility] [address] [place], [address] Monocytes/100 WBC (Bld) 11.3 % High 0-10 [facility] Comment on above: Performed By: #### L 501.080 #### [facility] [address] [place], [address] Neutrophils/100 WBC (Bld) 75.7 % High 47-70 [facility] Comment on above: Performed By: #### L 501.080 #### [facility] [address] [place], [address] Nucleated RBC (Bld) [#/Vol] 0 10*3/uL Normal 0-5 [facility] Comment on above: Performed By: #### L 501.080 #### [facility] [address] [place], [address] Platelet mean volume (Bld) [Entitic vol] 9.4 fL Normal 6.2-12.0 [facility] Comment on above: Performed By: #### L 501.080 #### [facility] [address] [place], [address] Platelets (Bld) [#/Vol] 276 10*3/uL Normal 150-450 [facility] Comment on above: Performed By: #### L 501.080 #### [facility] [address] [place], [address] RBC (Bld) [#/Vol] 4.56 10*6/uL Low 4.6-6.2 [facility] Comment on above: Performed By: #### L 501.080 #### [facility] [address] [place], [address] RDW SD 39.6 fl Normal 35.1-43.9 [facility] Comment on above: Performed By: #### L 501.080 #### [facility] [address] [place], [address] WBC (Bld) [#/Vol] 12.6 10*3/uL High 4.4-11.0 [facility] Comment on above: Performed By: #### L 501.080 #### [facility] [address] [place], [address] Carbon dioxide, total [Moles /volume] in Central venous bloodOrdered By: Chuy Santiago on 04-14-2025 CO2 [Moles/Vol] 22.5 mmol/L 21.0-32.0 [facility] Chest 1 View (Portable)on Chest 1 View (Portable) [facility] Imaging Services [address] [place] [address] Chest 1 View (Portable) MR#: [id number] Acct: [id number] Name: BURGOSITALO Mery Rep #: [id number] : 1970 M 54 From: Gen Jack MD PCP: Dr. Zaida Gaston MD Status: [facility] ER Study: Chest 1 View (Portable) Date of Exam: 04/14/25 Exam# [id number] Ordering Dr: Chuy Santiago MD PROCEDURE: CHEST 1 VIEW (PORTABLE) 04/14/2025 REASON FOR EXAM: NONPRODUCTIVE COUGH, FEVER, RALES RIGHT BASE TECHNIQUE: Frontal view of the chest. COMPARISON: 01/2025. FINDINGS: The heart is normal in size. The lungs are clear. No consolidation. No acute osseous abnormalities. RAD/Chest 1 View (Portable) IMPRESSION: No Acute Findings. Reading Location: [id number] CC: Dr. Zaida Gaston MD; Dr. Chuy Santiago MD Aircraft Sales Representative: Signed Normal [facility] Chloride assayOrdered By: Daylin Santiago on 04-14-2025 Chloride [Moles/Vol] 92 mmol/L Low 98-108 [facility] Comprehensive Metabolic Prof ilon 04-14-2025 Albumin [Mass/Vol] 3.9 g/dL Normal 3.5-5.0 [facility] Comment on above: Performed By: #### L 501.080 #### [facility] [address] [place], [address] Albumin/Globulin [Mass ratio] 0.8 {ratio} Low 0.9-2.4 [facility] Comment on above: Performed By: #### L 501.080 #### [facility] [address] [place], [address] ALK PHOS 141 U/L High 40-129 [facility] Comment on above: Performed By: #### L 501.080 #### [facility] [address] [place], [address] ALT [Catalytic activity/Vol] 12 U/L Normal <=46 [facility] Comment on above: Performed By: #### L 501.080 #### [facility] [address] [place], [address] AST [Catalytic activity/Vol] 18 U/L Normal <=37 [facility] [facility] Comment on above: Performed By: #### L 501.080 #### [facility] [address] [place], [address] Bilirubin [Mass/Vol] 0.82 mg/dL Normal 0.00-1.30 [facility] Comment on above: Performed By: #### L 501.080 #### [facility] [address] [place], [address] BUN/CRE 15.9 RATIO Normal 10-20 [facility] Comment on above: Performed By: #### L 501.080 #### [facility] [address] [place], [address] Calcium [Mass/Vol] 10.1 mg/dL Normal 7.6-11.0 [facility] Comment on above: Performed By: #### L 501.080 #### [facility] [address] [place], [address] Chloride [Moles/Vol] 92 mmol/L Low 98-108 [facility] Comment on above: Performed By: #### L 501.080 #### [facility] [address] [place], [address] CO2 [Moles/Vol] 22.5 mmol/L Normal 21.0-32.0 [facility] Comment on above: Performed By: #### L 501.080 #### [facility] [address] [place], [address] Creatinine [Mass/Vol] 1.62 mg/dL High 0.70-1.20 [facility] Comment on above: Performed By: #### L 501.080 #### [facility] [address] [place], [address] ECRCL 49.26 ml/min Low 50-250 [facility] Comment on above: Performed By: #### L 501.080 #### [facility] [address] [place], [address] GAP 16 High 5-15 [facility] Comment on above: Performed By: #### L 501.080 #### [facility] [address] [place], [address] GFR/1.73 sq M.predicted among non-blacks MDRD (S/P/Bld) [Vol rate/Area] 50 mL/min/{1.73_m2} Low >60 [facility] Comment on above: Result Comment: mL/m in/1.73m2 CKD-EPI Creatinine Equation (2020) Performed By: #### L 501.080 #### [facility] [address] [place], [address] Globulin (S) [Mass/Vol] 4.7 g/dL High 2.2-4.2 [facility] Comment on above: Performed By: #### L 501.080 #### [facility] [address] [place], [address] Glucose [Mass/Vol] 429 mg/dL High 70-99 [facility] Comment on above: Performed By: #### L 501.080 #### [facility] [address] [place], [address] Potassium [Moles/Vol] 4.3 mmol/L Normal 3.3-5.1 [facility] Comment on above: Performed By: #### L 501.080 #### [facility] [address] [place], [address] Sodium [Moles/Vol] 130 mmol/L Low 133-145 [facility] Comment on above: Performed By: #### L 501.080 #### [facility] [address] [place], [address] T PROT 8.5 g/dL High 5.9-8.4 [facility] Comment on above: Performed By: #### L 501.080 #### [facility] [address] [place], [address] Urea nitrogen [Mass/Vol] 26 mg/dL High 4-19 [facility] Comment on above: Performed By: #### L 501.080 #### [facility] [address] [place], [address] Emergency Department Summary on 04-14-2025 Emergency Department Summary [facility] Medical Records Department [address] [place] [address] Emergency Department Summary 04/14/25 MR#: [id number] Acct: [id number] Name: ITALO BURGOS Rep #: [id number] : 1970 54 From: Chuy Santiago MD PCP: Dr. Zaida Gaston MD Status:DIS IN Location: [place] [address]-1 HPI History of Present Illness Chief Complaint: [...] he is presently staying at the [facility] home. Prior similar symptoms: Yes Recent Illness/Hospitalization : [...] (LHC) ( 06/26/11) Atherosclerotic heart disease of [place] coronary artery without angina pectoris Essential hypertension [...] Kidney di (more content not included)... Normal [facility] Eosinophil percentageOrdered By: Chuy Santiago on 04-14-2025 Eosinophils/100 WBC (Bld) 0.0 % 0-5 [facility] Erythrocyte distribution wid th ratioOrdered By: Chuycholo Santiago on 04-14-2025 Erythrocyte distribution width (RBC) [Ratio] 12.3 % 11.6-14.6 [facility] Erythrocyte distribution wid th standard deviationOrdered By: Chuycholo Santiago on 04-14-2025 Erythrocyte distribution width (RBC) [Ratio] 39.6 fl 35.1-43.9 [facility] Glomerular filtration rate ( GFR) estimation/1.73 sq m using serum, plasma, or whole bOrdered By: Chuy Santiago on 04-14-2025 GFR/1.73 sq M.predicted among non-blacks MDRD (S/P/Bld) [Vol rate/Area] 50 mL/min/{1.73_m2} Low >60 [facility] Comment on above: mL/min/1.73m2 CKD-EP I Creatinine Equation (2020) Hematocrit Auto (Bld) [Volum e fraction]Ordered By: Chuy Santiago on 04-14-2025 Hematocrit (Bld) [Volume fraction] 39.7 % Low 40-54 [facility] Hemoglobin measurementOrdere d By: Chuy Santiago on 04-14-2025 Hemoglobin (Bld) [Mass/Vol] 13.3 g/dL 13.0-16.5 [facility] Immature granulocytes/100 WB C Auto (Bld)Ordered By: Chuy Santiago on 04-14-2025 Immature granulocytes/100 WBC (Bld) 0.500 % 0.0-0.9 [facility] Comment on above: IG% - Immature Granu locytes (promyelocytes, myelocytes and metamyelocytes) > 1% indicates that a LEFT SHIFT is Present. International normalized rat io (INR) calculationOrdered By: Chuy Santiago on 04-14-2025 INR Coag (Bld) [Relative time] 1.2 {INR} [facility] Ketones Test strip Ql (U)Ord ered By: Chuy Santiago on 04-14-2025 Ketones Ql (U) Negative Negative [facility] - Chemistry and C hemistry - challengeOrdered By: Chuy Santiago on 04-14-2025 AST [Catalytic activity/Vol] 18 U/L <38 [facility] Lactic Acidon 04-14-2025 Lactate [Moles/Vol] 1.6 mmol/L Normal 0.0-2.0 [facility] Comment on above: Order Comment: Y Performed By: #### L 501.080 #### [facility] [address] [place], [address] Lactic acid measurementOrder ed By: Chuy Santiago on 04-14-2025 Lactate [Moles/Vol] 1.6 mmol/L 0.0-2.0 [facility] MCV (mean corpuscular volume ) determinationOrdered By: Chuy Santiago on 04-14-2025 MCV (RBC) [Entitic vol] 87.1 fL 80-94 [facility] Mean corpuscular hemoglobin (MCH) determinationOrdered By: Chuycholo Santiago on 04-14-2025 MCH (RBC) [Entitic mass] 29.2 pg 27.0-32.0 [facility] Mean corpuscular hemoglobin concentration (MCHC) determinationOrdered By: Cuhycholo Santiago on 04-14-2025 MCHC (RBC) [Mass/Vol] 33.5 g/dL 32-36 [facility] Mean platelet volume determi nationOrdered By: Chuy Santiago on 04-14-2025 Platelet mean volume (Bld) [Entitic vol] 9.4 fL 6.2-12.0 [facility] Microscopic analysis of urin e for red blood cells (RBC)Ordered By: Chuy Santiago on 04-14-2025 Microscopic analysis of urine for red blood cells (RBC) 5-10 SEEN /hpf 0-5 [facility] Monocyte percentageOrdered B y: Chuy Santiago on 04-14-2025 Monocytes/100 WBC (Bld) 11.3 % High 0-10 [facility] Mucus LM Ql (Urine sed)Order ed By: Chuy Santiago on 04-14-2025 Mucus Ql (Urine sed) 0 SEEN /hpf [facility] Neutrophil percentageOrdered By: Chuycholo Santiago on 04-14-2025 Neutrophils/100 WBC (Bld) 75.7 % High 47-70 [facility] Nitrite Test strip Ql (U)Ord ered By: Chuycholo Santiago on 04-14-2025 Nitrite Ql (U) Positive High Negative [facility] No Panel InformationOrdered By: Chuycholo Santiago on 04-14-2025 18 U/L <38 [facility] Nucleated red blood cell per centageOrdered By: [facility] Nucleated RBC/100 WBC (Bld) [Ratio] 0 % 0-5 [facility] Organism identificationOrder ed By: Chuy Santiago on 04-14-2025 Microorganism identified Cx Nom (Unsp spec) Staphylococcus epidermidis Abnormal [facility] Partial Thromboplast Timeon 04-14-2025 aPTT Coag (Bld) [Time] 35.4 s Normal 24.1-36.2 [facility] Comment on above: Performed By: #### L 501.080 #### [facility] [address] [place], [place], [id number] Platelet countOrdered By: Daylin Santiago on 04-14-2025 Platelets (Bld) [#/Vol] 276 10*3/uL 150-450 [facility] Potassium measurement (mass/ volume)Ordered By: Chuycholo Santiago on 04-14-2025 Potassium (Unsp spec) [Mass/Vol] 4.3 mmol/L 3.3-5.1 [facility] Protein Test strip Ql (U)Ord ered By: Chuycholo Santiago on 04-14-2025 Protein Ql (U) 100 mg/dl High Negative [facility] Prothrombin Time w/INRon INR Coag (PPP) [Relative time] 1.2 {INR} Normal [facility] Comment on above: Performed By: #### L 501.080 #### [facility] [address] [place], [place], [address] PT Coag (PPP) [Time] 15.1 s High 11.7-14.9 [facility] Comment on above: Performed By: #### L 501.080 #### [facility] [address] [place], [place], [id number] Prothrombin timeOrdered By: Chuycholo Santiago on 04-14-2025 PT Coag (PPP) [Time] 15.1 s High 11.7-14.9 [facility] RBC Auto (Bld) [#/Vol]Ordere d By: Chuy Santiago on 04-14-2025 RBC (Bld) [#/Vol] 4.56 10*6/uL Low 4.6-6.2 [facility] Serum creatinine measurement (mass/volume)Ordered By: Chuycholo Santiago on 04-14-2025 Creatinine [Mass/Vol] 1.62 mg/dL High 0.70-1.20 [facility] Serum globulin measurementOr dered By: Chuy Santiago on 04-14-2025 Globulin (S) [Mass/Vol] 4.7 g/dL High 2.2-4.2 [facility] Serum glucose measurement (m ass/volume)Ordered By: Chuy Santiago on 04-14-2025 Glucose [Mass/Vol] 429 mg/dL High 70-99 [facility] Serum or plasma alanine andrade otransferase (ALT) measurementOrdered By: Chuycholo Santiago on 04-14-2025 ALT [Catalytic activity/Vol] 12 U/L <47 [facility] Serum or plasma albumin regi urement (mass/volume)Ordered By: Chuycholo Santiago on 04-14-2025 Albumin [Mass/Vol] 3.9 g/dL 3.5-5.0 [facility] Serum or plasma albumin/glob ulin mass ratioOrdered By: Chuycholo Santiago on 04-14-2025 Albumin/Globulin [Mass ratio] 0.8 {ratio} Low 0.9-2.4 [facility] Serum or plasma alkaline cindi sphatase measurementOrdered By: Chuycholo Santiago on 04-14-2025 ALP [Catalytic activity/Vol] 141 U/L High 40-129 [facility] Serum or plasma calcium regi urement (mass/volume)Ordered By: Chuy Santiago on 04-14-2025 Calcium [Mass/Vol] 10.1 mg/dL 7.6-11.0 [facility] Serum or plasma urea nitroge n measurement (mass/volume)Ordered By: Chuy Santiago on 04-14-2025 Urea nitrogen [Mass/Vol] 26 mg/dL High 4-19 [facility] Sodium levelOrdered By: Chuy Santiago on 04-14-2025 Sodium [Moles/Vol] 130 mmol/L Low 133-145 [facility] Squamous epithelial cells de tection in urine sediment by light microscopyOrdered By: Chuy Santiago on 04-14-2025 Epithelial cells.squamous LM Ql (Urine sed) 0 SEEN /hpf 0-5 [facility] Total proteinOrdered By: Chuy Santiago on 04-14-2025 Protein [Mass/Vol] 8.5 g/dL High 5.9-8.4 [facility] Urinalysis, Completeon 04-14 RBC 5-10 SEEN Normal 0-5 [facility] Comment on above: Order Comment: TOPHER CTOR TO SPECIFY Performed By: #### L 501.080 #### [facility] [address] [place], [address] CAST,COARSE GR 0-5 SEEN Normal 0-5 /lpf [facility] Comment on above: Order Comment: COLLE CTOR TO SPECIFY Performed By: #### L 501.080 #### [facility] [address] [place], [address] BACTERIA 1+ /hpf Normal None Seen [facility] Comment on above: Order Comment: COLLE CTOR TO SPECIFY Performed By: #### L 501.080 #### [facility] [address] [place], [address] WBC >100 SEEN Normal 0-5 [facility] Comment on above: Order Comment: COLLE CTOR TO SPECIFY Performed By: #### L 501.080 #### [facility] [address] [place], [address] EPI,SQUAMOUS 0 SEEN Normal 0-5 [facility] Comment on above: Order Comment: TOPHER CTOR TO SPECIFY Performed By: #### L 501.080 #### [facility] [address] [place], [address] Mucus Ql (Urine sed) 0 SEEN Normal [facility] Comment on above: Order Comment: TOPHER CTOR TO SPECIFY Performed By: #### L 501.080 #### [facility] [address] [place], [address] Urine clarityOrdered By: Chuy Santiago on 04-14-2025 Clarity (U) Cloudy Clear [facility] Urine coarse granular cast d etectionOrdered By: Chuy Santiago on 04-14-2025 Coarse Granular Casts LM Ql (Urine sed) 0-5 SEEN /lpf 0-5 /lpf [facility] Urine color determinationOrd ered By: Chuy Santiago on 04-14-2025 Color (U) Yellow Yellow [facility] Urine glucose detectionOrder ed By: Chuy Santiago on 04-14-2025 Glucose Ql (U) 1000 mg/dl High Normal [facility] Urine leukocyte esterase det ection by dipstickOrdered By: Chuy Santiago on 04-14-2025 Leukocyte esterase Test strip Ql (U) 500 /ul High Negative [facility] Urine pHOrdered By: Chuy ramirez on 04-14-2025 pH (U) 6.0 [pH] 5.0 - 8.0 [facility] Urine sediment bacteria coun t by microscopy (number/high power field)Ordered By: Chuy Santiago on 04-14-2025 Bacteria LM.HPF (Urine sed) [#/Area] 1 /[HPF] None Seen [facility] Urine specific gravity measu rementOrdered By: Chuy Santiago on 04-14-2025 Specific gravity (U) [Rel density] 1.015 1.002-1.030 [facility] Urine urobilinogen measureme ntOrdered By: Chuy Santiago on 04-14-2025 Urobilinogen Ql (U) 1 mg/dl High Normal [facility] White blood cell (WBC) count Ordered By: Chuycholo Santiago on 04-14-2025 WBC (Bld) [#/Vol] 12.6 10*3/uL High 4.4-11.0 [facility] White blood cell countOrdere d By: Chuycholo Santiago on 04-14-2025 White blood cell count >100 SEEN /hpf 0-5 [facility] Urine Cultureon 04-06-2025 URC Copy of report sent to Infection Control Printer [id number] 04/06/25 0745 ASNIPES. Meth. resistant Staph. aureus Odum Count >100,000 mecA Testing not performed Meth. [...] S Vancomycin Islt PARTH 1 S Normal [facility] Comment on above: Performed By: #### L 500.2500 #### [facility] [address] [place], [address] Absolute lymphocyte countOrd ered By: Chuycholo Santiago on 04-04-2025 Lymphocytes Auto (Unsp spec) [#/Vol] 1.17 10*3/uL 0.83-4.51 [facility] Absolute neutrophil countOrd ered By: [facility] on 04-04-[facility] Neutrophils (Bld) [#/Vol] 6.2 10*3/uL 2.0-7.7 [facility] Anion gap in Serum or Plasma Ordered By: Chuy Santiago on 04-04-2025 Anion gap [Moles/Vol] 12 mmol/L 5-15 [facility] Automated lymphocyte count a s percentage of total leukocytesOrdered By: Chuycholo Santiago on 04-04-2025 Lymphocytes/100 WBC Auto (Unsp spec) 14.4 % Low 19-41 [facility] BUN/creatinine ratioOrdered By: Chuy Satniago on 04-04-2025 Urea nitrogen/Creatinine [Mass ratio] 16.7 mg/mg - [facility] Basic Metabolic Profile (BMP )on 04-04-2025 BUN/CRE 16.7 RATIO Normal - [facility] Comment on above: Performed By: #### L 500.2500 #### [facility] [address] [place], [address] Calcium [Mass/Vol] 9.8 mg/dL Normal 7.6-11.0 [facility] Comment on above: Performed By: #### L 500.2500 #### [facility] [address] [place], [address] Chloride [Moles/Vol] 94 mmol/L Low 98-108 [facility] Comment on above: Performed By: #### L 500.2500 #### [facility] [address] [place], [address] CO2 [Moles/Vol] 22.2 mmol/L Normal 21.0-32.0 [facility] Comment on above: Performed By: #### L 500.2500 #### [facility] [address] [place], [address] Creatinine [Mass/Vol] 1.26 mg/dL High 0.70-1.20 [facility] Comment on above: Performed By: #### L 500.2500 #### [facility] [address] [place], [address] ECRCL 63.33 ml/min Normal 50-250 [facility] Comment on above: Performed By: #### L 500.2500 #### [facility] [address] [place], [address] GAP 12 Normal 5-15 [facility] Comment on above: Performed By: #### L 500.2500 #### [facility] [address] [place], [address] GFR/1.73 sq M.predicted among non-blacks MDRD (S/P/Bld) [Vol rate/Area] 67 mL/min/{1.73_m2} Normal >60 [facility] Comment on above: Result Comment: mL/m in/1.73m2 CKD-EPI Creatinine Equation (2020) Performed By: #### L 500.2500 #### [facility] [address] [place], [address] Glucose [Mass/Vol] 581 mg/dL Invalid Interpretation Code 70-99 [facility] Comment on above: Result Comment: Crit ical Result(s) Called at: 04/04/2025-12:13 by: Ignacio Smith to Ashlee Gillespie.??Results read back by same. Performed By: #### L 500.2500 #### [facility] [address] [place], [address] Potassium [Moles/Vol] 5.1 mmol/L Normal 3.3-5.1 [facility] Comment on above: Performed By: #### L 500.2500 #### [facility] [address] [place], [address] Sodium [Moles/Vol] 128 mmol/L Low 133-145 [facility] Comment on above: Performed By: #### L 500.2500 #### [facility] [address] [place], [address] Urea nitrogen [Mass/Vol] 21 mg/dL High 4-19 [facility] Comment on above: Performed By: #### L 500.2500 #### [facility] [address] [place], [address] Basophil percentageOrdered B y: Chuy Santiago on 04-04-2025 Basophils/100 WBC (Bld) 0.4 % 0-1 [facility] Bedside Glucoseon 04-04-2025 FINGERSTICK GLU 294 mg/dL High 74-106 [facility] Comment on above: Result Comment: RACHEL GEMENT OF PATIENT CARE PER NURSING PROTOCOL Performed By: #### L 501.080 #### [facility] [address] [place], [address] FINGERSTICK GLU 440 mg/dL High 74-106 [facility] Comment on above: Result Comment: RACHEL GEMENT OF PATIENT CARE PER NURSING PROTOCOL Performed By: #### L 501.080 #### [facility] [address] [place], [address] Bilirubin Test strip Ql (U)O rdered By: Chuy Santiago on 04-04-2025 Bilirubin Ql (U) Negative Negative [facility] CBC W/Diff, Automatedon 03-10 Absolute Lymph 1.17 X10 3/uL Normal 0.83-4.51 [facility] Comment on above: Performed By: #### L 500.2500 #### [facility] [address] [place], [address] Absolute Neut 6.2 X10 3/uL Normal 2.0-7.7 [facility] Comment on above: Performed By: #### L 500.2500 #### [facility] [address] [place], [address] Basophils/100 WBC (Bld) 0.4 % Normal 0-1 [facility] Comment on above: Performed By: #### L 500.2500 #### [facility] [address] [place], [address] Eosinophils/100 WBC (Bld) 0.7 % Normal 0-5 [facility] Comment on above: Performed By: #### L 500.2500 #### [facility] [address] [place], [address] Erythrocyte distribution width (RBC) [Ratio] 12.4 % Normal 11.6-14.6 [facility] Comment on above: Performed By: #### L 500.2500 #### [facility] [address] [place], [address] Hematocrit (Bld) [Volume fraction] 36.8 % Low 40-54 [facility] Comment on above: Performed By: #### L 500.2500 #### [facility] [address] [place], [address] Hemoglobin (Bld) [Mass/Vol] 12.3 g/dL Low 13.0-16.5 [facility] Comment on above: Performed By: #### L 500.2500 #### [facility] [address] [place], [address] IG% 0.200 Normal 0.0-0.9 [facility] Comment on above: Result Comment: IG% - Immature Granulocytes (promyelocytes, myelocytes and metamyelocytes) > 1% indicates that a LEFT SHIFT is Present. Performed By: #### L 500.2500 #### [facility] [place], [address] Lymphocytes/100 WBC (Bld) 14.4 % Low 19-41 [facility] Comment on above: Performed By: #### L 500.2500 #### [facility] [address] [place], [address] MCH (RBC) [Entitic mass] 29.8 pg Normal 27.0-32.0 [facility] Comment on above: Performed By: #### L 500.2500 #### [facility] [address] [place], [address] MCHC (RBC) [Mass/Vol] 33.4 g/dL Normal 32-36 [facility] Comment on above: Performed By: #### L 500.2500 #### [facility] [address] [place], [address] MCV (RBC) [Entitic vol] 89.1 fL Normal 80-94 [facility] Comment on above: Performed By: #### L 500.2500 #### [facility] [address] [place], [address] Monocytes/100 WBC (Bld) 8.7 % Normal 0-10 [facility] Comment on above: Performed By: #### L 500.2500 #### [facility] [address] [place], [address] Neutrophils/100 WBC (Bld) 75.6 % High 47-70 [facility] Comment on above: Performed By: #### L 500.2500 #### [facility] [address] [place], [address] Nucleated RBC (Bld) [#/Vol] 0 10*3/uL Normal 0-5 [facility] Comment on above: Performed By: #### L 500.2500 #### [facility] [address] [place], [address] Platelet mean volume (Bld) [Entitic vol] 9.3 fL Normal 6.2-12.0 [facility] Comment on above: Performed By: #### L 500.2500 #### [facility] [address] [place], [address] Platelets (Bld) [#/Vol] 341 10*3/uL Normal 150-450 [facility] Comment on above: Performed By: #### L 500.2500 #### [facility] [address] [place], [address] RBC (Bld) [#/Vol] 4.13 10*6/uL Low 4.6-6.2 [facility] Comment on above: Performed By: #### L 500.2500 #### [facility] [address] [place], [address] RDW SD 40.5 fl Normal 35.1-43.9 [facility] Comment on above: Performed By: #### L 500.2500 #### [facility] [address] [place], [address] WBC (Bld) [#/Vol] 8.2 10*3/uL Normal 4.4-11.0 [facility] Comment on above: Performed By: #### L 500.2500 #### [facility] [address] [place], [address] Carbon dioxide, total [Moles /volume] in Central venous bloodOrdered By: Chuy Santiago on 04-04-2025 CO2 [Moles/Vol] 22.2 mmol/L 21.0-32.0 [facility] Chloride assayOrdered By: Daylin Santiago on 04-04-2025 Chloride [Moles/Vol] 94 mmol/L Low 98-108 [facility] Emergency Department Summary on 04-04-2025 Emergency Department Summary [facility] Medical Records Department [address] [place] [address] Emergency Department Summary 04/04/25 MR#: [id number] Acct: [id number] Name: ITALO BURGOS Rep #: [id number] : 1970 54 From: Chuy Santiago MD [...] is a 54-year-old male. He presents from nursing home. He arrived by ambulance. He denies headache. [...] symptoms: No Recent Illness/Hospitalization : No [facility] Medical History Anxiety Depression Diabetes Former smoker [...] (LHC) ( 06/26/11) Atherosclerotic heart disease of [place] coronary artery without angina pectoris Essential hypertension [...] Depression H/O (more content not included)... Normal [facility] Eosinophil percentageOrdered By: Chuy Santiago on 04-04-2025 Eosinophils/100 WBC (Bld) 0.7 % 0-5 [facility] Erythrocyte distribution wid th ratioOrdered By: Chuy Santiago on 04-04-2025 Erythrocyte distribution width (RBC) [Ratio] 12.4 % 11.6-14.6 [facility] Erythrocyte distribution wid th standard deviationOrdered By: Chuy Santiago on 04-04-2025 Erythrocyte distribution width (RBC) [Ratio] 40.5 fl 35.1-43.9 [facility] Glomerular filtration rate ( GFR) estimation/1.73 sq m using serum, plasma, or whole bOrdered By: Chuy Santiago on 04-04-2025 GFR/1.73 sq M.predicted among non-blacks MDRD (S/P/Bld) [Vol rate/Area] 67 mL/min/{1.73_m2} >60 [facility] Comment on above: mL/min/1.73m2 CKD-EP I Creatinine Equation (2020) Glucose measurement at bedsi deOrdered By: Chuy Santiago on 04-04-2025 Glucose [Mass/Vol] 294 mg/dL High 74-106 [facility] Comment on above: MANAGEMENT OF PATIEN T CARE PER NURSING PROTOCOL Hematocrit Auto (Bld) [Volum e fraction]Ordered By: Chuy Santiago on 04-04-2025 Hematocrit (Bld) [Volume fraction] 36.8 % Low 40-54 [facility] Hemoglobin measurementOrdere d By: Chuy Santiago on 04-04-2025 Hemoglobin (Bld) [Mass/Vol] 12.3 g/dL Low 13.0-16.5 [facility] Immature granulocytes/100 WB C Auto (Bld)Ordered By: Chuy Santiago on 04-04-2025 Immature granulocytes/100 WBC (Bld) 0.200 % 0.0-0.9 [facility] Comment on above: IG% - Immature Granu locytes (promyelocytes, myelocytes and metamyelocytes) > 1% indicates that a LEFT SHIFT is Present. Ketones Test strip Ql (U)Ord ered By: Chuy Santiago on 04-04-2025 Ketones Ql (U) Negative Negative [facility] MCV (mean corpuscular volume ) determinationOrdered By: Chuy Santiago 04-04-2025 MCV (RBC) [Entitic vol] 89.1 fL 80-94 [facility] Mean corpuscular hemoglobin (MCH) determinationOrdered By: Chuy Santiago 04-04-2025 MCH (RBC) [Entitic mass] 29.8 pg 27.0-32.0 [facility] Mean corpuscular hemoglobin concentration (MCHC) determinationOrdered By: Chuy Santiago 04-04-2025 MCHC (RBC) [Mass/Vol] 33.4 g/dL 32-36 [facility] Mean platelet volume determi nationOrdered By: Chuy Santiago 04-04-2025 Platelet mean volume (Bld) [Entitic vol] 9.3 fL 6.2-12.0 [facility] Microscopic analysis of urin e for red blood cells (RBC)Ordered By: Chuy Santiago 04-04-2025 Microscopic analysis of urine for red blood cells (RBC) 5-10 SEEN /hpf 0-5 [facility] Monocyte percentageOrdered B y: Chuycholo Thompsono on 04-04-2025 Monocytes/100 WBC (Bld) 8.7 % 0-10 [facility] Mucus LM Ql (Urine sed)Order ed By: Chuy Santiago on 04-04-2025 Mucus Ql (Urine sed) 0 SEEN /hpf [facility] Neutrophil percentageOrdered By: Chuy Santiago on 04-04-2025 Neutrophils/100 WBC (Bld) 75.6 % High 47-70 [facility] Nitrite Test strip Ql (U)Ord ered By: Chuy Santiago on 04-04-2025 Nitrite Ql (U) Positive High Negative [facility] Nucleated red blood cell per centageOrdered By: Chuy Santiago on 04-04-2025 Nucleated RBC/100 WBC (Bld) [Ratio] 0 % 0-5 [facility] Platelet countOrdered By: Daylin Santiago on 04-04-2025 Platelets (Bld) [#/Vol] 341 10*3/uL 150-450 [facility] Potassium measurement (mass/ volume)Ordered By: Chuycholo Santiago on 04-04-2025 Potassium (Unsp spec) [Mass/Vol] 5.1 mmol/L 3.3-5.1 [facility] Protein Test strip Ql (U)Ord ered By: Chuy Santiago on 04-04-2025 Protein Ql (U) 30 mg/dl High Negative [facility] RBC Auto (Bld) [#/Vol]Ordere d By: Chuy Santiago on 04-04-2025 RBC (Bld) [#/Vol] 4.13 10*6/uL Low 4.6-6.2 [facility] Serum creatinine measurement (mass/volume)Ordered By: Chuy Santiago on 04-04-2025 Creatinine [Mass/Vol] 1.26 mg/dL High 0.70-1.20 [facility] Serum glucose measurement (m ass/volume)Ordered By: Chuy Santiago on 04-04-2025 Glucose [Mass/Vol] 581 mg/dL High 70-99 [facility] Comment on above: Critical Result(s) C alled at: 04/04/2025-12:13 by: Ignacio Smith to Ashlee Gillespie. Results read back by same. Serum or plasma calcium regi urement (mass/volume)Ordered By: Chuy Santiago on 04-04-2025 Calcium [Mass/Vol] 9.8 mg/dL 7.6-11.0 [facility] Serum or plasma urea nitroge n measurement (mass/volume)Ordered By: Chuy Santiago on 04-04-2025 Urea nitrogen [Mass/Vol] 21 mg/dL High 4-19 [facility] Sodium levelOrdered By: Chuycholo Santiago on 04-04-2025 Sodium [Moles/Vol] 128 mmol/L Low 133-145 [facility] Squamous epithelial cells de tection in urine sediment by light microscopyOrdered By: Chuycholo Santiago on 04-04-2025 Epithelial cells.squamous LM Ql (Urine sed) 0 SEEN /hpf 0-5 [facility] Urinalysis, Completeon 04-04 RBC 5-10 SEEN Normal 0-5 [facility] Comment on above: Order Comment: CLEAN CATCH Performed By: #### L 501.080 #### [facility] Laboratory [address] [place], [address] BACTERIA 1+ /hpf Normal None Seen [facility] Comment on above: Order Comment: CLEAN CATCH Performed By: #### L 501.080 #### [facility] Laboratory [address] [place], [address] WBC 10-25 SEEN Normal 0-[address] [place] [address] Comment on above: Order Comment: CLEAN CATCH Performed By: #### L 501.080 #### [facility] [address] [place], [address] EPI,SQUAMOUS 0 SEEN Normal 0-5 [facility] Comment on above: Order Comment: CLEAN CATCH Performed By: #### L 501.080 #### [facility] [address] [place], [address] Mucus Ql (Urine sed) 0 SEEN Normal [facility] Comment on above: Order Comment: CLEAN CATCH Performed By: #### L 501.080 #### [facility] [address] [place], [address] Urine clarityOrdered By: Chuy Santiago on 04-04-2025 Clarity (U) Sl. Cloudy Clear [facility] Urine color determinationOrd ered By: Chuy Santiago on 04-04-2025 Color (U) Yellow Yellow [facility] Urine cultureOrdered By: Chuy Santiago on 04-04-2025 Bacteria identified Cx Nom (U) Meth. resistant Staph. aureus Abnormal [facility] Urine glucose detectionOrder ed By: Chuy Santiago on 04-04-2025 Glucose Ql (U) 1000 mg/dl High Normal [facility] Urine leukocyte esterase det ection by dipstickOrdered By: Chuy Santiago on 04-04-2025 Leukocyte esterase Test strip Ql (U) 500 /ul High Negative [facility] Urine pHOrdered By: Chuy ramirez on 04-04-2025 pH (U) 6.5 [pH] 5.0 - 8.0 [facility] Urine sediment bacteria coun t by microscopy (number/high power field)Ordered By: Chuy Santiago on 04-04-2025 Bacteria LM.HPF (Urine sed) [#/Area] 1 /[HPF] None Seen [facility] Urine specific gravity measu rementOrdered By: Chuy Santiago on 04-04-2025 Specific gravity (U) [Rel density] 1.010 1.002-1.030 [facility] Urine urobilinogen measureme ntOrdered By: Chuy Santiago on 04-04-2025 Urobilinogen Ql (U) 1 mg/dl High Normal [facility] White blood cell (WBC) count Ordered By: Chuy Santiago on 04-04-2025 WBC (Bld) [#/Vol] 8.2 10*3/uL 4.4-11.0 [facility] White blood cell countOrdere d By: Chuy Santiago on 04-04-2025 White blood cell count 10-25 SEEN /hpf 0-5 [facility] Abdomen/Pelvis without Conto n 03-10-2025 Abdomen/Pelvis without Cont [facility] Imaging Services [address] [place] [address] Abdomen/Pelvis without Cont MR#: [id number] Acct: [id number] Name: ITALO BURGOS Rep #: [id number] : 1970 M 54 From: John Solis MD PCP: Dr. Zaida Gaston MD Status: REG ER Study: Abdomen/Pelvis without Cont Date of Exam: 11/03 Exam# [id number] Ordering Dr: Byron Saldana DO EXAM: CT [...] the colon consistent with constipation. Reading Location: [facility] CC: Dr. Zaida Gaston MD; Dr. Byron Saldana DO Aircraft Sales Representative: Signed Normal [facility] Anion gap in Serum or Plasma Ordered By: Chuy Santiago on 03-10-2025 Anion gap [Moles/Vol] 11 mmol/L - [facility] BUN/creatinine ratioOrdered By: Chuy Santiago on 03-10-2025 Urea nitrogen/Creatinine [Mass ratio] 18.8 mg/mg - [facility] Basic Metabolic Profile (BMP )on 03-10-2025 BUN/CRE 18.8 RATIO Normal - [facility] Comment on above: Performed By: #### L 400.0001 #### [facility] Laboratory [address] [facility] [address] Calcium [Mass/Vol] 9.3 mg/dL Normal 7.6-11.0 [facility] Comment on above: Performed By: #### L 400.0001 #### [facility] Laboratory [address] [facility] [address] Chloride [Moles/Vol] 100 mmol/L Normal 98-108 [facility] Comment on above: Performed By: #### L 400.0001 #### [facility] [address] [facility] [address] CO2 [Moles/Vol] 23.9 mmol/L Normal 21.0-32.0 [facility] Comment on above: Performed By: #### L [id number] #### [facility] Laboratory [address] [facility] [address] Creatinine [Mass/Vol] 1.20 mg/dL Normal 0.70-1.20 [facility] Comment on above: Performed By: #### L 400.0001 #### [facility] [address] [place], [address] ECRCL 66.50 ml/min Normal 50-250 [facility] Comment on above: Performed By: #### L 400.0001 #### [facility] Laboratory [address] [place], [address] GAP 11 Normal 5-15 [facility] Comment on above: Performed By: #### L 400.0001 #### [facility] Laboratory [address] [place], [address] GFR/1.73 sq M.predicted among non-blacks MDRD (S/P/Bld) [Vol rate/Area] 71 mL/min/{1.73_m2} Normal >60 [facility] Comment on above: Result Comment: mL/m in/1.73m2 CKD-EPI Creatinine Equation (2020) Performed By: #### L 400.0001 #### [facility] [address] [place], [address] Glucose [Mass/Vol] 307 mg/dL High 70-99 [facility] Comment on above: Performed By: #### L [id number] #### [facility] [address] [place], [address] Potassium [Moles/Vol] 4.2 mmol/L Normal 3.3-5.1 [facility] Comment on above: Result Comment: Hemo lysis present, Results??could be affected. ?? Performed By: #### L 400.0001 #### [facility] [address] [place], [address] Sodium [Moles/Vol] 134 mmol/L Normal 133-145 [facility] Comment on above: Performed By: #### L 400.0001 #### [facility] [address] [place], [address] Urea nitrogen [Mass/Vol] 23 mg/dL High 4-19 [facility] Comment on above: Performed By: #### L 400.0001 #### [facility] [address] [place], [address] Bilirubin Test strip Ql (U)O rdered By: Byron Saldana on 03-10-2025 Bilirubin Ql (U) Negative Negative [facility] Carbon dioxide, total [Moles /volume] in Central venous bloodOrdered By: Chuy Santiago on 03-10-2025 CO2 [Moles/Vol] 23.9 mmol/L 21.0-32.0 [facility] Chloride assayOrdered By: Daylin Santiago on 03-10-2025 Chloride [Moles/Vol] 100 mmol/L 98-108 [facility] Emergency Department Summary on 03-10-2025 Emergency Department Summary [facility] Medical Records Department [address] [place] [address] Emergency Department Summary 03/10/25 MR#: [id number] Acct: [id number] Name: ITALO UBRGOS Rep #: [id number] : 1970 54 From: Byron Saldana DO [...] Patient denies any neck or back pain. [facility] Medical History (Updated 03/10/25 @ 20:40 by [...] (LHC) ( 06/26/11) Atherosclerotic heart disease of [place] coronary artery without angina pectoris Essential hypertension [...] ENT ENT (more content not included)... Normal [facility] Glomerular filtration rate ( GFR) estimation/1.73 sq m using serum, plasma, or whole bOrdered By: Chuy Santiago on 03-10-2025 GFR/1.73 sq M.predicted among non-blacks MDRD (S/P/Bld) [Vol rate/Area] 71 mL/min/{1.73_m2} >60 [facility] Comment on above: mL/min/1.73m2 CKD-EP I Creatinine Equation (2020) Ketones Test strip Ql (U)Ord ered By: Byron Saldana on 03-10-2025 Ketones Ql (U) Negative Negative [facility] Microscopic analysis of urin e for red blood cells (RBC)Ordered By: Byron Saldana on 03-10-2025 Microscopic analysis of urine for red blood cells (RBC) 10-25 SEEN /hpf 0-5 [facility] Mucus LM Ql (Urine sed)Order ed By: Byron Saldana on 03-10-2025 Mucus Ql (Urine sed) 0 SEEN /hpf [facility] Nitrite Test strip Ql (U)Ord ered By: Byron Saldana on 03-10-2025 Nitrite Ql (U) Positive High Negative [facility] Potassium measurement (mass/ volume)Ordered By: Chuy Santiago on 03-10-2025 Potassium (Unsp spec) [Mass/Vol] 4.2 mmol/L 3.3-5.1 [facility] Comment on above: Hemolysis present, R esults could be affected. Protein Test strip Ql (U)Ord ered By: Byron Saldana on 03-10-2025 Protein Ql (U) 100 mg/dl High Negative [facility] Serum creatinine measurement (mass/volume)Ordered By: [facility] on 03-10-2025 Creatinine [Mass/Vol] 1.20 mg/dL 0.70-1.20 [facility] Serum glucose measurement (m ass/volume)Ordered By: [facility] on 03-10-2025 Glucose [Mass/Vol] 307 mg/dL High 70-99 [facility] Serum or plasma calcium regi urement (mass/volume)Ordered By: [facility] on 03-10-2025 Calcium [Mass/Vol] 9.3 mg/dL 7.6-11.0 [facility] Serum or plasma urea nitroge n measurement (mass/volume)Ordered By: [facility] on 03-10-2025 Urea nitrogen [Mass/Vol] 23 mg/dL High 4-19 [facility] Sodium levelOrdered By: [facility] on 03-10-2025 Sodium [Moles/Vol] 134 mmol/L 133-145 [facility] Squamous epithelial cells de tection in urine sediment by light microscopyOrdered By: Byron Saldana on 03-10-2025 Epithelial cells.squamous LM Ql (Urine sed) 0-5 SEEN /hpf 0-5 [facility] Urinalysis, Completeon 03-10 BACTERIA 2+ /hpf Normal None Seen [facility] Comment on above: Order Comment: ALAINA TER SPECIMEN Performed By: #### L 501.080 #### [facility] Laboratory [address] [place], [place], [address] EPI,SQUAMOUS 0-5 SEEN Normal 0-5 [facility] Comment on above: Order Comment: ALAINA TER SPECIMEN Performed By: #### L 501.080 #### [facility] [address] [place], [address] RBC 10-25 SEEN Normal 0-5 [facility] Comment on above: Order Comment: ALAINA TER SPECIMEN Performed By: #### L 501.080 #### [facility] [address] [place], [address] WBC 50-100 SEEN Normal 0-5 [facility] Comment on above: Order Comment: ALAINA TER SPECIMEN Performed By: #### L 501.080 #### [facility] [address] [place], [address] Mucus Ql (Urine sed) 0 SEEN Normal [facility] Comment on above: Order Comment: ALAINA TER SPECIMEN Performed By: #### L 501.080 #### [facility] [address] [place], [place], [address] Urine clarityOrdered By: Marline Saldana on 03-10-2025 Clarity (U) Cloudy Clear [facility] Urine color determinationOrd ered By: Byron Saldana on 03-10-2025 Color (U) Yellow Yellow [facility] Urine glucose detectionOrder ed By: Byron Saldana on 03-10-2025 Glucose Ql (U) 1000 mg/dl High Normal [facility] Urine leukocyte esterase det ection by dipstickOrdered By: Byron Saldana on 03-10-2025 Leukocyte esterase Test strip Ql (U) 500 /ul High Negative [facility] Urine pHOrdered By: Byron means on 03-10-2025 pH (U) 6.0 [pH] 5.0 - 8.0 [facility] Urine sediment bacteria coun t by microscopy (number/high power field)Ordered By: Byron Saldana on 03-10-2025 Bacteria LM.HPF (Urine sed) [#/Area] 2 /[HPF] None Seen [facility] Urine specific gravity measu rementOrdered By: Byron Saldana on 03-10-2025 Specific gravity (U) [Rel density] 1.015 1.002-1.030 [facility] Urine urobilinogen measureme ntOrdered By: Byron Saldana on 03-10-2025 Urobilinogen Ql (U) Normal mg/dl Normal [facility] White blood cell countOrdere d By: Byron Benedictoedmond on 03-10-2025 White blood cell count 50-100 SEEN /hpf 0-5 [facility] BRIEF OP NOTon 02-25-2025 BRIEF OP NOT HNO ID: [id number] Author: JONNY SOFIA MD Service: Radiology Author [...] BRIEF OPERATIVE / PROCEDURE NOTE LOG ID: [id number] SURGERY/PROCEDURE DATE: 02/25/2025 INCISION/PROCEDURE START TIME: 10:05 AM INCISION CLOSE/PROCEDURE END TIME: 10:26 AM SURGEON(S)/PROCEDURALIS T(S) AND RD LAB TECHNICIAN(S): Surgeons and Role: * Dona Martinez MD - Primary * Jonny Sofia MD - Assisting No Additional Staff SURGERY/PROCEDURE(S): perc. Neph tube exchange 10F ANESTHESIA: Procedural Sedation FINDINGS: successful exchange ESTIMATED BLOOD LOSS: 0 ml SPECIMENS: None COMPLICATIONS: None IMPLANTS: 10Fr [employer] CLOSURE TECHNIQUE: Non-primary PRE-OP/PRE-PROCEDURE DIAGNOSIS: 54M s/p renal transplant 2020 c/b obstructing ureteral stone with hydronephrosis s/p perc neph on 01/27 POST-OP/POST-PROCEDURE DIAGNOSIS: Same as Preop SIGNATURE: Jonny Sofia MD PATIENT NAME: Italo Burgos DATE: February 25, 2025 TIME: 10:31 AM Normal [facility] CNPNon 02-25-2025 CNPN Telephone (Angio) ITALO BURGOS ([id number]) 1970 M Date Time Provider Department 02/25/25 [...] for Visit: IR Outpatient Tube Appointment Request [[id number]] Prescriptions as of 02/25/2025 - mycophenolate sodium [...] 3 mg/actuation nasal spray (BAQSIMI) Use 1 [place] in the nose as needed for low [...] Encounter Status (more content not included)... 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 ([facility]) 12/16/2018 Depression Detached retina DM type 2, goal HbA1c < 7% ([facility]) Erectile dysfunction, unspecified erectile dysfunction type ESRD (end stage renal disease) ([facility]) GERD (gastroesophageal reflux disease) Hyperlipidemia Kidney replaced by transplant ([facility]) Kidney stones LUANNE (obstructive sleep apnea) PNA [...] AND STENT 1999 EGD 12/04/2018 EGD W/O [facility] SPEC VARICIES INJ 04/01/2024 [...] 3 mg/actuation nasal spray (BAQSIMI) Use 1 [place] in the nose as needed for low [...] Good d (more content not included)... Normal [facility] IR EXCHANGE CATH PERC NEPHon 02-25-2025 [...] contrast injection. Pre-existing genitourinary catheter: 10 F [employer] nephrostomy Genitourinary catheter(s) placed: 10 F [employer] nephrostomy Findings: Distal ureteral obstruction present [...] The procedure was performed by the: the credit control assistant, and the attending radiologist personally supervised the entire procedure. The attending radiologist performed the following procedural activities: Close supervision and assistance of the procedure IMPRESSION: Successful exchange of a 10French nephrostomy tube in the right (more content not included)... Normal [facility] NURSING PROGon 02-25-2025 NURSING PROG HNO ID: [id number] Author: SONNY MANDUJANO RN Service: Interventional Radiology Author Type: Registered Nurse Type: Nursing Progress Note Filed: 02/26/2025 08:09 Note Text: Attempted post procedure phone call. Left VM for patient to return call to [phone] with any questions/concerns. Normal [facility] NURSING PROG HNO ID: [id number] Author: KAYCEE FLETCHER, ANDER Service: Nursing Author Type: Registered Nurse Type: Nursing Progress Note Filed: 02/25/2025 09:15 Note Text: Pt BG 409, on recheck BG 445. Dr. Ry corado, pt is asymptomatic. [facility]- Dr. Sofia bedside to assess pt. Normal [facility] NURSING PROG HNO ID: [id number] Author: KAYCEE FLETCHER, RN Service: Nursing Author Type: Registered Nurse Type: Nursing Progress Note Filed: 02/25/2025 08:39 Note Text: Pt took a cab here without a family member for his neph tube exchange. Pt is agreeable to local anesthetic only- spoke with Dr. Martinez who states ok for patient to have procedure and go home with cab if local anesthetic only. Normal [facility] NURSING PROGon 02-18-2025 NURSING PROG HNO ID: [id number] Author: KAYCEE FLETCHER, ANDER Service: Nursing Author Type: Registered Nurse Type: Nursing Progress Note Filed: 02/23/2025 08:14 Note Text: Confirmed instructions on 02/23 with Italo Please call [phone] to confirm you have received the below instructions for your upcoming radiology procedure. Italo Burgos is scheduled for the following procedure Nephrostomy tube exchange . Scheduled on 02[facility]25/25, at [facility]. If instructions are not followed your procedure may need to be cancelled or rescheduled. Arrival: Arrival at 8:00 AM to desk QB[facility]1 ([facility]) and check in for your procedure. Please bring your Photo ID and Insurance Card. A general consent may need to be signed. Law Office Assistant parking is located in front of the main entrance ( building) at [address] [place], [place]. Garage parking is located across the street from the main entrance at [address] [place], [place]. From the main entrance, go straight [...] allergy? No Labs: Labs completed on 01/29/25. Vinyl Cutter/Transportation: You will need a dump truck driver for your procedure. You will need a responsible adult to accompany you to and from the procedure. If you develop any of the following symptoms before your procedure, please call [phone]. Chills, joint pain, rash, sore throat, cough, [...] If you have any questions please call [phone] Normal [facility] CNPKaley 02-15-2025 CNPN Telephone (PHMEWO) ITALO BURGOS ([id number]) 1970 M Date Time Provider Department 02/15/25 VERNA JENSEN PHWO During your visit today, we recorded the following information about you: [facility] 9:52 AM Signed Called patient for scheduled phone appt but unable to reach after multiple attempts. LMOM for mobile phone. Unable to connect to home phone - maybe disconnected? Primary Care Pharmacy Rescheduling Outreach Call center, please contact patient and reschedule telephone visit for Diabetes management within ~4 week(s). (Visit length: 60 minutes) Thank you, Verna Jensen, [facility] 02/15/2025 9:51 AM L[facility] 02/17/2025 9:26 AM Signed 2nd attempt to reschedule appt. Called and lmom. Sent [facility] message. [facility] 02/22/2025 8:43 AM Signed Called and spoke with patient. Rescheduled appt for 03/08. Verna Jensen, PharmD, [facility] Primary Care Clinical Pharmacist Allergies As of [...] 3 mg/actuation nasal spray (BAQSIMI) Use 1 [place] in the nose as needed for low [...] Encounter Status:Closed by VERNA JENSEN on 02/15/25 [facility] CNOVgerardo 02-11-2025 CNOV Office Visit (TXCTGL ) ITALO BURGOS ([id number]) 1970 M Date Time Provider Department 02/11/25 10:00 AM KIDNEY TXP CLINIC TXCTGL During your visit today, we recorded the following information about you: Referring Provider: ALANA KENT [[id number]] Allergies As of Date: 02/11/2025 (No Known Allergies) Date Reviewed: 02/05/2025 Reviewed by: Francheska Carrington MA - Fully Assessed Primary Visit Diagnosis:Kidney replaced by transplant ([facility]) [Z94.0] Prescriptions as of 02/12/2025 - mycophenolate [...] 3 mg/actuation nasal spray (BAQSIMI) Use 1 [place] in the nose as needed for low [...] Status:Closed by DALE RANGEL on 02/12/25 Normal [facility] CNPNon 02-09-2025 CNPN Telephone (PODCCP) ITALO BURGOS ([id number]) 1970 M Date Time Provider Department 02/09/25 [facility] your visit today, we recorded [...] 3 mg/actuation nasal spray (BAQSIMI) Use 1 [place] in the nose as needed for low [...] Encounter Status:Closed by KERRY OSCAR on 02/09/25 [facility] Edna 02-08-2025 ANDREWS Telephone (TXCTGL) ITALO BURGOS ([id number]) 1970 M Date Time Provider Department 02/08/25 AMANDA HAYES TXCTGL During your visit today, we recorded the following information about you: Amanda Hayes LISW 02/08/2025 2:03 PM Signed SW attempted to return pt's phone call. SW left pt a voicemail and will await return phone call. SARA Sahu-S Transplant Alligator Trapper Allergies As of Date: 02/08/2025 (No Known [...] 3 mg/actuation nasal spray (BAQSIMI) Use 1 [place] in the nose as needed for low [...] Status:Closed by AMANDA HAYES on 02/08/25 Normal [facility] Emergency Department Summary on 02-07-2025 Emergency Department Summary [facility] Medical Records Department [address] [place] [address] Emergency Department Summary 02/07/25 MR#: [id number] Acct: [id number] Name: ITALO BURGOS Rep #: [id number] : 1970 54 From: Toni Nelson DO [...] kidney and therefore was transferred up to [facility] where they remove the kidney stone and placed a urostomy tube. Patient notices that his bag is leaking and would like a new bag. He denies fevers or chills or sweats. He is otherwise doing well. His transplant was 5 years ago. 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 [facility] 02-05-2025 OV Office Visit (INTMWS ) BURGOSITALO ([id number]) 1970 M Date Time Provider Department 02/05/25 [...] a follow-up appointment with Urology at the [facility] next to discuss the next steps, including whether the tube will be removed or kept in place. Dr. Maryjane Quinteros will see you at [facility] [place]. - Please ensure you have transportation arranged [...] well-being: - You are currently staying at [facility], a nursing home for homeless individuals. I encourage you to [...] new device. Italo is currently residing at [facility], a nursing home for homeless individuals, since September. He previously [...] 12.5 m (more content not included)... [facility] ANDREN Telephone (Angio) ITALO BURGOS ([id number]) 1970 M Date Time Provider Department 02/05/25 [...] hours please call or and ask the strainer mill operator to page the interventional bank president production control planner. 5) To change or schedule an appointment [...] for nephrostomy tube care instructions and demonstrations. [email or web address] Activity and Exercise: (When I can [...] please call Interventional Radiology nurse triage line [phone], Saturday - Saturday 9 a.m. - 4 p.m. After hours please call and ask for Interventional Radiology Fellow production control planner, pager [phone]. In the event of acute symptoms report [...] mg (more content not included)... Normal [facility] 02-04-2025 CNPN Telephone (PODCCP) ITALO BURGOS ([id number]) 1970 M Date Time Provider Department 02/04/25 [...] 3 mg/actuation nasal spray (BAQSIMI) Use 1 [place] in the nose as needed for low [...] Status:Closed by AZRA HOGAN on 02/04/25 Normal [facility] Edna 02-03-2025 [facility] Telephone (TXCTGL) ITALO BURGOS ([id number]) 1970 M Date Time Provider Department 02/03/25 AMANDA HAYES TXCTGL During your visit today, we recorded the following information about you: Amanda Hayes LISW 02/03/2025 2:14 PM Signed ADDY made another attempt to contact ([phone]) pt regarding the pt possibility of him being homeless. ADDY left a voicemail and will await return phone call. SARA Sahu-S Transplant Alligator Trapper Allergies As of Date: 02/03/2025 (No Known [...] 3 mg/actuation nasal spray (BAQSIMI) Use 1 [place] in the nose as needed for low [...] Encounter Status:Closed by AMANDA HAYES on 02/03/25 [facility] Telephone (Angio) ITALO BURGOS ([id number]) 1970 M Date Time Provider Department 02/03/25 [...] 3 mg/actuation nasal spray (BAQSIMI) Use 1 [place] in the nose as needed for low [...] Encounter Status:Closed by DANNI SINGH on 02/03/25 [facility] CNPKaley 02-02-2025 CNPN Telephone (UROLMN) ITALO BURGOS ([id number]) 1970 Date Time Provider Department 02/02/25 BON [...] MD Gambrell [employer], Jamal; Bon Concepcion RN Va Delfino. This one we can add on [...] Rivas RN 02/02/2025 12:20 PM Signed [facility] Neli Yee MD; Bon Concepcion RN I [...] 3 mg/actuation nasal spray (BAQSIMI) Use 1 [place] in the nose as needed for low [...] 11/23/2022 Keyonna (more content not included)... Normal [facility] CBC panel Auto (Bld)on 01-29 Erythrocyte distribution width (RBC) [Ratio] 11.9 % Normal 11.5-15.0 [facility] Comment on above: Order Comment: Speci mario Type: BLOOD SPECIMEN Ordering Facility: [facility] Address: [address] [place] [address] Performed By: #### 5 8410-2 #### [facility] CLIA [id number] [address] [place] [address] [place] Hematocrit (Bld) [Volume fraction] 38.6 % Low 39.0-51.0 [facility] Comment on above: Order Comment: Gabriel martin Type: BLOOD SPECIMEN Ordering Facility: [facility] Address: [address] [place] [address] Performed By: #### 5 8410-2 #### [facility] CLIA [id number] [address] [place] [address] [place] Hemoglobin (Bld) [Mass/Vol] 13.1 g/dL Normal 13.0-17.0 [facility] Comment on above: Order Comment: Speci men Type: BLOOD SPECIMEN Ordering Facility: [facility] Address: [address] [place] [address] Performed By: #### 5 8410-2 #### [facility] CLIA [id number] [address] [place] [address] [place] MCH (RBC) [Entitic mass] 30.4 pg Normal 26.0-34.0 [facility] Comment on above: Order Comment: Speci men Type: BLOOD SPECIMEN Ordering Facility: [facility] Address: [address] [place] [address] Performed By: #### 5 8410-2 #### [facility] CLIA [id number] [address] [place] [address] [place] MCHC (RBC) [Mass/Vol] 33.9 g/dL Normal 30.5-36.0 [facility] Comment on above: Order Comment: Speci men Type: BLOOD SPECIMEN Ordering Facility: [facility] Address: [address] [place] [address] Performed By: #### 5 8410-2 #### [facility] CLIA [id number] [address] [place] [address] [place] MCV (RBC) [Entitic vol] 89.6 fL Normal 80.0-100.0 [facility] Comment on above: Order Comment: Speci men Type: BLOOD SPECIMEN Ordering Facility: [facility] Address: [address] [place] [address] Performed By: #### 5 8410-2 #### [facility] CLIA [id number] [address] [place] [address] [place] Nucleated RBC (Bld) [#/Vol] 10*3/uL Normal <0.01 [facility] Comment on above: Order Comment: Speci men Type: BLOOD SPECIMEN Ordering Facility: [facility] Address: [address] [place] [address] Performed By: #### 5 8410-2 #### [facility] CLIA [id number] [address] [place] [address] [place] Platelet mean volume (Bld) [Entitic vol] 9.6 fL Normal 9.0-12.7 [facility] Comment on above: Order Comment: Speci men Type: BLOOD SPECIMEN Ordering Facility: [facility] Address: [address] [place] [address] Performed By: #### 5 8410-2 #### [facility] CLIA [id number] [address] [place] [address] [place] Platelets (Bld) [#/Vol] 253 10*3/uL Normal 150-400 [facility] Comment on above: Order Comment: Speci men Type: BLOOD SPECIMEN Ordering Facility: [facility] Address: [address] [place] [address] Performed By: #### 5 8410-2 #### [facility] CLIA [id number] [address] [place] [address] [place] RBC (Bld) [#/Vol] 4.31 10*6/uL Normal 4.20-6.00 [facility] Comment on above: Order Comment: Speci men Type: BLOOD SPECIMEN Ordering Facility: [facility] Address: [address] [place] [address] Performed By: #### 5 8410-2 #### [facility] CLIA [id number] [address] [place] [address] [place] WBC (Bld) [#/Vol] 5.28 10*3/uL Normal 3.70-11.00 [facility] Comment on above: Order Comment: Speci men Type: BLOOD SPECIMEN Ordering Facility: [facility] Address: [address] [place] [address] Performed By: #### 5 8410-2 #### [facility] CLIA [id number] [address] [place] [address] [place] CNDSon 01-29-2025 CNDS HNO ID: [id number] Author: SHANA CANTOR MD Service: General Internal [...] patient counseling. SIGNATURE: Shana Cantor MD, MRCP ([facility]: [phone] DATE of SERVICE: January 31, 2025 TIME [...] Appointment - Urology; less than 2 weeks; [facility] Provider; NELI WESLEY ONCE Comments: Kidney [...] with associated hydroureteronephrosis. He was transferred to [facility] for higher-level management and underwent successful [...] hydroureteronephrosis on (more content not included)... Normal [facility] CONSULT PROGon 01-29-2025 CONSULT PROG HNO ID: [id number] Author: LASHAE WILLIS APRN.CNP Service: Nephrology Author Type: Nurse Practitioner Type: Consult Progress Note Filed: 01/29/2025 14:04 Note Text: Department of Kidney Medicine Medical Specialties [place] NEPHROLOGY TRANSPLANT CONSULT SERVICE PROGRESS NOTE INTERVAL [...] eye, RLE weakness, depression, GERD, HLD, UTI, DE, DKA, CAD, renal calculi, hematuria, LUANNE, cholecystectomy, [...] Cr ap (more content not included)... Normal [facility] Renal function 2000 panelon 01-29-2025 Albumin [Mass/Vol] 2.9 g/dL Low 3.9-4.9 [facility] Comment on above: Order Comment: Speci men Type: SWAB Ordering Facility: [facility] Address: [address] [place] [address] Performed By: #### S APCR #### [facility] CLIA [id number] [address] [place] [address] [place] Anion gap [Moles/Vol] 10 mmol/L Normal 8-15 [facility] Comment on above: Order Comment: Speci men Type: SWAB Ordering Facility: [facility] Address: [address] [place] [address] Performed By: #### S APCR #### [facility] CLIA [id number] [address] [place] [address] [place] Calcium [Mass/Vol] 8.9 mg/dL Normal 8.5-10.2 [facility] Comment on above: Order Comment: Speci men Type: SWAB Ordering Facility: [facility] Address: [address] [place] [address] Performed By: #### S APCR #### [facility] CLIA [id number] [address] [place] [address] [place] Chloride [Moles/Vol] 107 mmol/L Normal 98-107 [facility] Comment on above: Order Comment: Speci men Type: SWAB Ordering Facility: [facility] Address: [address] [place] [address] Performed By: #### S APCR #### [facility] CLIA [id number] [address] [place] [address] [place] CO2 [Moles/Vol] 22 mmol/L Normal 22-30 [facility] Comment on above: Order Comment: Speci men Type: SWAB Ordering Facility: [facility] Address: [address] [place] [address] Performed By: #### S APCR #### [facility] CLIA [id number] [facility] [place] [address] [place] Creatinine [Mass/Vol] 1.98 mg/dL High 0.73-1.22 [facility] Comment on above: Order Comment: Speci men Type: SWAB Ordering Facility: [facility] Address: [address] [place] [address] Performed By: #### S APCR #### [facility] CLIA [id number] [address] [place] [address] [place] Creatinine and Glomerular filtration rate.predicted panel (S/P/Bld) 39 mL/min/1.73m??? Low >=60 [facility] Comment on above: Order Comment: Speci men Type: SWAB Ordering Facility: [facility] Address: [address] [place] [address] Result Comment: Candace mated Glomerular Filtration Rate [...] GFR. Performed By: #### S APCR #### [facility] CLIA [id number] [address] [place] [address] [place] Glucose [Mass/Vol] 248 mg/dL High 74-99 [facility] Comment on above: Order Comment: Speci men Type: SWAB Ordering Facility: [facility] Address: [address] [place] [address] Result Comment: The [place] Diabetes Association (ADA) provides guidance for cutoff [...] Standards of Medical Care in Diabetes 2016, [place] [employer]. Diabetes Care. 2016.39(Suppl 1). Performed By: #### S APCR #### [facility] CLIA [id number] [address] [place] [address] [place] Phosphate [Mass/Vol] 2.2 mg/dL Low 2.7-4.8 [facility] Comment on above: Order Comment: Speci men Type: SWAB Ordering Facility: [facility] Address: [address] [place] [address] Performed By: #### S APCR #### [facility] CLIA [id number] [address] [place] [address] [place] Potassium [Moles/Vol] 4.6 mmol/L Normal 3.7-5.1 [facility] Comment on above: Order Comment: Speci men Type: SWAB Ordering Facility: [facility] Address: [address] [place] [address] Performed By: #### S APCR #### [facility] CLIA [id number] [address] [place] [address] [place] Sodium [Moles/Vol] 139 mmol/L Normal 136-144 [facility] Comment on above: Order Comment: Speci men Type: SWAB Ordering Facility: [facility] Address: [address] [place] [address] Performed By: #### S APCR #### [facility] CLIA [id number] [address] [place] [address] [place] Urea nitrogen [Mass/Vol] 38 mg/dL High 9-24 [facility] Comment on above: Order Comment: Speci men Type: SWAB Ordering Facility: [facility] Address: [address] [place], [place] [id number] Performed By: #### S APCR #### [facility] CLIA [id number] [address] [facility] [place] [address] [place] THERAPY NTon 01-29-2025 THERAPY NT HNO ID: [id number] Author: LASHAE VALLE, OT/L Service: Occupational Therapy Author Type: Occupational Therapist Type: Therapy (PT/OT/Speech/Resp) Filed: 01/29/2025 11:47 Note Text: Occupational Therapy Evaluation Summary SERVICE DATE: 01/29/2025 SERVICE TIME: 1049 to 1127 ROOM: [place] [address] OT 6 Clicks Score: 22 DISCHARGE RECOMMENDATIONS Home Recommended Discharge Disposition Comments: Safe for d/c back to nursing home from OT persepctive. May benefit from SNF [...] and mobility, able to complete transfer to [facility] with S[facility]-CGA. Primarily limited by baseline visual deficits impacting ability to manage nephrostomy tube. Adapted neph tube bag for low vision with increased size and contrast of text/numbers. Pt reporting improvement with adjustment. Provided pt with information on [facility] for assistance with low vision resources. Pt is currently homeless with no family support available. From a therapy perspective, pt safe to d/c back to homeless nursing home as pt is functioning at recent baseline. [...] Patient Lives With: Other: See Comment (Homeless nursing home) Assistance Available: None Entry To Home: No Stairs Equipment Owned: Rollator, Cane PRIOR FUNCTIONAL LEVEL Within Functional Limits Pt reports overall IND with ADLs. Ambulates using rollator, denies falls. Has been staying at homeless nursing home, reports no family support Baseline Cognition: Oriented [...] No Skilled Need TREATMENT INTERVENTIONS Evaluation, Self Fdc Management (66899) Timed Code Treatment (minutes): 23 Skilled Treatment Time (minutes): 38 TRAINING AND EDUCATION PROVIDED Activity Adaptation/Compensatory Strategies, Bed Mobility, Benefits of In-Hospital Mobility, Discharge Planning, Functional Mobility Involving ADLs, Low Vision Strategies, Home Set-up/Modifications, IADLs/Home Management, Identification of Systems of Support, Insight into Deficits, Life Roles/Routines/Habits, Role of Occupational Therapy, Standing Balance to Improve [place] with ADLs/Self-Care, Transfer - Sit to Stand, Transfer - Toilet/Commode, Sitting Balance to Improve [place] with ADLs/Self-Care THERAPEUTIC SKILLS USED Activity Dosing, [...] health stat (more content not included)... Normal [facility] Tacrolimus Bld-mCncon 2024 Tacrolimus (Bld) [Mass/Vol] 10.7 ng/mL Normal 5.0-20.0 [facility] Comment on above: Order Comment: Gabriel martin Type: BLOOD SPECIMENOrdering Facility: [facility] Address: [address] [place] [address] Result Comment: Eileen vidualized target levels for [...] situation. Test performed by chemiluminescent immunoassay using TOOVIA Alinity i. Performed By: #### 1 1253-2 ####[facility] [id number] [place] [address] [place] CBC panel Auto (Bld)on 01-28 Erythrocyte distribution width (RBC) [Ratio] 11.9 % Normal 11.5-15.0 [facility] Comment on above: Order Comment: Gabriel martin Type: SWAB Order[facility] Facility: [facility] Address: [address] [place] [address] Performed By: #### S APCR #### [facility] CLIA [id number] [address] [place] [address] [place] Hematocrit (Bld) [Volume fraction] 37.8 % Low 39.0-51.0 [facility] Comment on above: Order Comment: Gabriel martin Type: SWAB Order[facility] Facility: [facility] Address: [address] [place] [address] Performed By: #### S APCR #### [facility] CLIA [id number] [address] [place] [address] [place] Hemoglobin (Bld) [Mass/Vol] 13.2 g/dL Normal 13.0-17.0 [facility] Comment on above: Order Comment: Speci men Type: SWAB Order[facility] Facility: [facility] Address: [address] [place] [address] Performed By: #### S APCR #### [facility] CLIA [id number] [address] [place] [address] [place] MCH (RBC) [Entitic mass] 30.9 pg Normal 26.0-34.0 [facility] Comment on above: Order Comment: Speci men Type: SWAB Ordering Facility: [facility] Address: [address] [place] [address] Performed By: #### S APCR #### [facility] CLIA [id number] [address] [place] [address] [place] MCHC (RBC) [Mass/Vol] 34.9 g/dL Normal 30.5-36.0 [facility] Comment on above: Order Comment: Speci men Type: SWAB Ordering Facility: [facility] Address: [address] [place] [address] Performed By: #### S APCR #### [facility] CLIA [id number] [address] [place] [address] [place] MCV (RBC) [Entitic vol] 88.5 fL Normal 80.0-100.[address] [facility] Comment on above: Order Comment: Speci men Type: SWAB Order[facility] Facility: [facility] Address: [address] [place] [address] Performed By: #### S APCR #### [facility] CLIA [id number] [address] [place] [address] [place] Nucleated RBC (Bld) [#/Vol] 10*3/uL Normal <0.01 [facility] Comment on above: Order Comment: Speci men Type: SWAB Ordering Facility: [facility] Address: [address] [place] [address] Performed By: #### S APCR #### [facility] CLIA [id number] [address] [place] [address] [place] Platelet mean volume (Bld) [Entitic vol] 9.7 fL Normal 9.0-12.7 [facility] Comment on above: Order Comment: Speci men Type: SWAB Ordering Facility: [facility] Address: [address] [place] [address] Performed By: #### S APCR #### [facility] CLIA [id number] [address] [place] [address] [place] Platelets (Bld) [#/Vol] 206 10*3/uL Normal 150-400 [facility] Comment on above: Order Comment: Speci men Type: SWAB Ordering Facility: [facility] Address: [address] [place] [address] Performed By: #### S APCR #### [facility] CLIA [id number] [address] [place] [address] [place] RBC (Bld) [#/Vol] 4.27 10*6/uL Normal 4.20-6.00 [facility] Comment on above: Order Comment: Speci men Type: SWAB Ordering Facility: [facility] Address: [address] [place] [address] Performed By: #### S APCR #### [facility] CLIA [id number] [address] [place] [address] [place] WBC (Bld) [#/Vol] 6.53 10*3/uL Normal 3.70-11.00 [facility] Comment on above: Order Comment: Speci men Type: SWAB Ordering Facility: [facility] Address: [address] [place] [address] Performed By: #### S APCR #### [facility] CLIA [id number] [address] [place] [address] [facility] CONSULT PROGon 01-28-2025 CONSULT PROG HNO ID: [id number] Author: LASHAE WILLIS APRN.CNP Service: Nephrology Author Type: Nurse Practitioner Type: Consult Progress Note Filed: 01/28/2025 13:26 Note Text: Department of Kidney Medicine Medical Specialties [place] NEPHROLOGY TRANSPLANT CONSULT SERVICE PROGRESS NOTE INTERVAL [...] eye, RLE weakness, depression, GERD, HLD, UTI, DE, DKA, CAD, renal calculi, hematuria, LUANNE, cholecystectomy, [...] -Renal imaging CT AP 01/26/25: Severely atrophic curyung kidneys. Right pelvic transplanted kidney transplanted right kidney ureter 10 mm calculus with severe upstream hydroureteronephrosis. Transplant kidney perinephric stranding which may represent back pressure. Bladder: Markedly concentrically thi (more content not included)... Normal [facility] CONSULT PROG HNO ID: [id number] Author: JORDYN ROBB MD Service: Urology Author [...] sign off Jordyn Cates MD Urology PGY3 Formerly [facility], 1928–1983 Urological and Kid[facility] [place] After 5pm or weekends: [id number] Will discuss plan with staff OBJECTIVE Vital [...] draining CYU Labs: Reviewed Imaging Reviewed Normal [facility] NURSING PROGon 01-28-2025 NURSING PROG HNO ID: [id number] Author: CHARAN TRINIDAD, RN Service: Nursing Author [...] it should be 1000 plus 500. Normal [facility] Renal function 2000 panelon 01-28-2025 Albumin [Mass/Vol] 3.0 g/dL Low 3.9-4.9 [facility] Comment on above: Order Comment: Speci men Type: BLOOD SPECIMEN Ordering Facility: [facility] Address: [address] [place] [address] Performed By: #### 1 1253-2 #### [facility] CLIA [id number] [address] [place] [address] [place] Anion gap [Moles/Vol] 11 mmol/L Normal 8-15 [facility] Comment on above: Order Comment: Speci men Type: BLOOD SPECIMEN Ordering Facility: [facility] Address: [address] [place] [address] Performed By: #### 1 1253-2 #### [facility] CLIA [id number] [address] [place] [address] [place] Calcium [Mass/Vol] 8.8 mg/dL Normal 8.5-10.2 [facility] Comment on above: Order Comment: Speci men Type: BLOOD SPECIMEN Ordering Facility: [facility] Address: [address] [place] [address] Performed By: #### 1 1253-2 #### [facility] CLIA [id number] [address] [place] [address] [place] Chloride [Moles/Vol] 103 mmol/L Normal 98-107 [facility] Comment on above: Order Comment: Speci men Type: BLOOD SPECIMEN Ordering Facility: [facility] Address: [address] [place] [address] Performed By: #### 1 1253-2 #### [facility] CLIA [id number] [address] [place] [address] [place] CO2 [Moles/Vol] 18 mmol/L Low 22-30 [facility] Comment on above: Order Comment: Speci men Type: BLOOD SPECIMEN Ordering Facility: [facility] Address: [address] [place] [address] Performed By: #### 1 1253-2 #### [facility] CLIA [id number] [address] [place] [address] [place] Creatinine [Mass/Vol] 3.04 mg/dL High 0.73-1.22 [facility] Comment on above: Order Comment: Mii men Type: BLOOD SPECIMEN Ordering Facility: [facility] Address: [address] [place] [address] Performed By: #### 1 1253-2 #### [facility] CLIA [id number] [address] [place] [address] [place] Creatinine and Glomerular filtration rate.predicted panel (S/P/Bld) 23 mL/min/1.73m??? Low >=60 [facility] Comment on above: Order Comment: Gabriel men Type: BLOOD SPECIMEN Ordering Facility: [facility] Address: [address] [place] [address] Result Comment: Candace mated Glomerular Filtration Rate [...] GFR. Performed By: #### 1 1253-2 #### [facility] CLIA [id number] [address] [place] [address] [place] Glucose [Mass/Vol] 362 mg/dL High 74-99 [facility] Comment on above: Order Comment: Gabriel men Type: BLOOD SPECIMEN Ordering Facility: [facility] Address: [address] [place] [address] Result Comment: The [place] Diabetes Association (ADA) provides guidance for cutoff [...] Standards of Medical Care in Diabetes 2016, [place] [employer]. Diabetes Care. 2016.39(Suppl 1). Performed By: #### 1 1253-2 #### [facility] CLIA [id number] [address] [place] [address] [place] Phosphate [Mass/Vol] 2.6 mg/dL Low 2.7-4.8 [facility] Comment on above: Order Comment: Gabriel martin Type: BLOOD SPECIMEN Ordering Facility: [facility] Address: [address] [place] [address] Performed By: #### 1 1253-2 #### [facility] CLIA [id number] [address] [place] [address] [place] Potassium [Moles/Vol] 4.8 mmol/L Normal 3.7-5.1 [facility] Comment on above: Order Comment: Gabriel martin Type: BLOOD SPECIMEN Ordering Facility: [facility] Address: [address] [place] [address] Performed By: #### 1 1253-2 #### [facility] CLIA [id number] [address] [place], [place] [address] [place] Sodium [Moles/Vol] 132 mmol/L Low 136-144 [facility] Comment on above: Order Comment: Mii men Type: BLOOD SPECIMEN Ordering Facility: [facility] Address: [address] [place] [address] Performed By: #### 1 1253-2 #### [facility] CLIA [id number] [address] [place], [place] [address] [place] Urea nitrogen [Mass/Vol] 51 mg/dL High 9-24 [facility] Comment on above: Order Comment: Speci men Type: BLOOD SPECIMEN Ordering Facility: [facility] Address: [address] [place] [address] Performed By: #### 1 1253-2 #### [facility] CLIA [id number] [address] [place] [address] [place] Albumin [Mass/Vol] 2.5 g/dL Low 3.9-4.9 [facility] Comment on above: Order Comment: Speci men Type: BLOOD SPECIMEN Ordering Facility: [facility] Address: [address] [place] [address] Performed By: #### 1 1253-2 #### [facility] CLIA [id number] [address] [place] [address] [place] Anion gap [Moles/Vol] 14 mmol/L Normal 8-15 [facility] Comment on above: Order Comment: Speci men Type: BLOOD SPECIMEN Ordering Facility: [facility] Address: [address] [place], [place] [address] Performed By: #### 1 1253-2 #### [facility] CLIA [id number] [address] [place] [address] [place] Calcium [Mass/Vol] 8.7 mg/dL Normal 8.5-10.2 [facility] Comment on above: Order Comment: Speci men Type: BLOOD SPECIMEN Ordering Facility: [facility] Address: [address] [place] [address] Performed By: #### 1 1253-2 #### [facility] CLIA [id number] [address] [place] [address] [place] Chloride [Moles/Vol] 104 mmol/L Normal 98-107 [facility] Comment on above: Order Comment: Speci men Type: BLOOD SPECIMEN Ordering Facility: [facility] Address: [address] [place] [address] Performed By: #### 1 1253-2 #### [facility] CLIA [id number] [address] [place] [address] [place] CO2 [Moles/Vol] 16 mmol/L Low 22-30 [facility] Comment on above: Order Comment: Speci men Type: BLOOD SPECIMEN Ordering Facility: [facility] Address: [address] [place] [address] Performed By: #### 1 1253-2 #### [facility] CLIA [id number] [address] [place] [address] [place] Creatinine [Mass/Vol] 4.96 mg/dL High 0.73-1.22 [facility] Comment on above: Order Comment: Speci men Type: BLOOD SPECIMEN Ordering Facility: [facility] Address: [address] [place] [address] Performed By: #### 1 1253-2 #### [facility] CLIA [id number] [address] [place] [address] [place] Creatinine and Glomerular filtration rate.predicted panel (S/P/Bld) 13 mL/min/1.73m??? Low >=60 [facility] Comment on above: Order Comment: Speci men Type: BLOOD SPECIMEN Ordering Facility: [facility] Address: [address] [place] [address] Result Comment: Candace mated Glomerular Filtration Rate [...] GFR. Performed By: #### 1 1253-2 #### [facility] CLIA [id number] [address] [place], [place] [address] [place] Glucose [Mass/Vol] 230 mg/dL High 74-99 [facility] Comment on above: Order Comment: Speci men Type: BLOOD SPECIMEN Ordering Facility: [facility] Address: [address] [place] [address] Result Comment: The [place] Diabetes Association (ADA) provides guidance for cutoff [...] Standards of Medical Care in Diabetes 2016, [place] [employer]. Diabetes Care. 2016.39(Suppl 1). Performed By: #### 1 1253-2 #### [facility] CLIA [id number] [address] [place] [address] [place] Phosphate [Mass/Vol] 3.9 mg/dL Normal 2.7-4.8 [facility] Comment on above: Order Comment: Speci men Type: BLOOD SPECIMEN Ordering Facility: [facility] Address: [address] [place] [address] Performed By: #### 1 1253-2 #### [facility] CLIA [id number] [address] [place] [address] [place] Potassium [Moles/Vol] 4.6 mmol/L Normal 3.7-5.1 [facility] Comment on above: Order Comment: Speci men Type: BLOOD SPECIMEN Ordering Facility: [facility] Address: [address] [place] [address] Performed By: #### 1 1253-2 #### [facility] CLIA [id number] [address] [place] [address] [place] Sodium [Moles/Vol] 134 mmol/L Low 136-144 [facility] Comment on above: Order Comment: Speci men Type: BLOOD SPECIMEN Ordering Facility: [facility] Address: [address] [place] [address] Performed By: #### 1 1253-2 #### [facility] CLIA [id number] [address] [place] [address] Urea nitrogen [Mass/Vol] 65 mg/dL High 9-24 [facility] Comment on above: Order Comment: Gabriel martin Type: BLOOD SPECIMEN Ordering Facility: [facility] Address: [address] [place] [address] Performed By: #### 1 1253-2 #### [facility] CLIA [id number] [address] [place] [address] THERAPY NTon 01-28-2025 THERAPY NT HNO ID: [id number] Author: RICK JACOBS OT/Jose Luis Service: Occupational Therapy Author Type: Occupational Therapist Type: Therapy (PT/OT/Speech/Resp) Filed: 01/28/2025 13:22 Note Text: OCCUPATIONAL THERAPY MISSED VISIT SERVICE DATE: 01/28/2025 SERVICE TIME: 1310 ROOM: [place] [address] Patient not seen due to (Pt with actice d/c summary in chart). SIGNATURE: DINAH Waldron PATIENT NAME: Italo Burgos DATE: January 28, 2025 TIME: 1:22 PM Normal [facility] Tacrolimus Bld-mCncon 2024 Tacrolimus (Bld) [Mass/Vol] 17.3 ng/mL Normal 5.0-20.0 [facility] Comment on above: Order Comment: Gabriel martin Type: BLOOD SPECIMEN Ordering Facility: [facility] Address: [address] [place] [address] Result Comment: Eileen vidualized target levels for [...] i. Performed By: #### 1 1253-2 #### [facility] CLIA [id number] [address] [place] [address] [place] Anion gap in Serum or Plasma Ordered By: Yony Solis on 01-27-2025 Anion gap [Moles/Vol] 16 mmol/L High 5-15 [facility] BRIEF OP NOTon 01-27-2025 BRIEF OP NOT HNO ID: [id number] Author: ALTAF DE JESUS MD Service: Interventional Radiology Author Type: Resident Type: Brief Op Note Filed: 01/27/2025 08:56 Note Text: BRIEF OPERATIVE / PROCEDURE NOTE LOG ID: [id number] SURGERY/PROCEDURE DATE: 01/27/2025 INCISION/PROCEDURE START TIME: 8:35 AM INCISION CLOSE/PROCEDURE END TIME: SURGEON(S)/PROCEDURALIS T(S) AND RD LAB TECHNICIAN(S): Surgeons and Role: * Tenzin Daniel MD - Primary * Altaf De Jesus [...] January 27, 2025 TIME: 8:55 AM Normal [facility] BUN/creatinine ratioOrdered By: Yony Solis on 01-27-2025 Urea nitrogen/Creatinine [Mass ratio] 8.5 mg/mg Low 10-20 [facility] Bacteria Ur Culton 5 Bacteria identified Cx Nom (U) CULTURE, URINE: No growth (<100 CFU/ml) Normal [facility] Comment on above: Performed By: #### 6 30-4 ####[facility] [id number] [place] [address] [place] Basic Metabolic Profile (BMP )on 01-27-2025 BUN/CRE 8.5 RATIO Low 10-20 [facility] Comment on above: Performed By: #### L 500.2500, L100.0100 #### [facility] [address] [place], [address] Calcium [Mass/Vol] 8.2 mg/dL Normal 7.6-11.0 [facility] Comment on above: Performed By: #### L 500.2500, L100.0100 #### [facility] [address] [place], [address] Chloride [Moles/Vol] 94 mmol/L Low 98-108 [facility] Comment on above: Performed By: #### L 500.2500, L100.0100 #### [facility] [address] [place], [address] CO2 [Moles/Vol] 16.7 mmol/L Low 21.0-32.0 [facility] Comment on above: Performed By: #### L 500.2500, L100.0100 #### [facility] [address] [place], [address] Creatinine [Mass/Vol] 10.50 mg/dL Invalid Interpretation Code 0.70-1.20 [facility] Comment on above: Result Comment: Crit ical Result(s) Called at: 0222 by:??RUDY HAVEN TO NATE ALFRED Results read back by same. Performed By: #### L 500.2500, L100.0100 #### [facility] [address] [place], [address] ECRCL 8.41 ml/min Invalid Interpretation Code 50-250 [facility] Comment on above: Performed By: #### L 500.2500, L100.0100 #### [facility] [address] [place], [address] GAP 16 High 5-15 [facility] Comment on above: Performed By: #### L 500.2500, L100.0100 #### [facility] [address] [place], [address] GFR/1.73 sq M.predicted among non-blacks MDRD (S/P/Bld) [Vol rate/Area] 5 mL/min/{1.73_m2} Low >60 [facility] Comment on above: Result Comment: mL/m in/1.73m2 CKD-EPI Creatinine Equation (2020) Performed By: #### L 500.2500, L100.0100 #### [facility] [address] [place], [address] Glucose [Mass/Vol] 116 mg/dL High 70-99 [facility] Comment on above: Performed By: #### L 500.2500, L100.0100 #### [facility] [address] [place], [address] Potassium [Moles/Vol] 4.6 mmol/L Normal 3.3-5.1 [facility] Comment on above: Performed By: #### L 500.2500, L100.0100 #### [facility] [address] [place], [address] Sodium [Moles/Vol] 126 mmol/L Low 133-145 [facility] Comment on above: Performed By: #### L 500.2500, L100.0100 #### [facility] [address] [place], [address] Urea nitrogen [Mass/Vol] 90 mg/dL High 4-19 [facility] Comment on above: Performed By: #### L 500.2500, L100.0100 #### [facility] [address] [place], [address] BUN Normal 4-19 [facility] Comment on above: Result Comment: QUES TIONABLE RESULTS. REORDERED Performed By: #### L 500.2500 #### [facility] [address] [place], [address] BUN/CRE Normal 10-20 [facility] Comment on above: Result Comment: QUES TIONABLE RESULTS. REORDERED Performed By: #### L 500.2500 #### [facility] [address] [place], [address] Calcium Normal 7.6-11.0 [facility] Comment on above: Result Comment: QUES TIONABLE RESULTS. REORDERED Performed By: #### L 500.2500 #### [facility] [address] [place], [address] CL Normal 98-108 [facility] Comment on above: Result Comment: QUES TIONABLE RESULTS. REORDERED Performed By: #### L 500.2500 #### [facility] [address] [place], [address] CO2 Normal 21.0-32.0 [facility] Comment on above: Result Comment: QUES TIONABLE RESULTS. REORDERED Performed By: #### L 500.2500 #### [facility] [address] [place], [address] CREAT,SERUM Normal 0.70-1.20 [facility] Comment on above: Result Comment: QUES TIONABLE RESULTS. REORDERED Performed By: #### L 500.2500 #### [facility] [address] [place], [address] eGFR Normal >60 [facility] Comment on above: Result Comment: QUES TIONABLE RESULTS. REORDERED Performed By: #### L 500.2500 #### [facility] [address] [place], [address] GAP Normal 5-15 [facility] Comment on above: Result Comment: QUES TIONABLE RESULTS. REORDERED Performed By: #### L 500.2500 #### [facility] [address] [place], [address] GLU Normal 70-99 [facility] Comment on above: Result Comment: QUES TIONABLE RESULTS. REORDERED Performed By: #### L 500.2500 #### [facility] [address] [place], [address] Potassium Normal 3.3-5.1 [facility] Comment on above: Result Comment: QUES TIONABLE RESULTS. REORDERED Performed By: #### L 500.2500 #### [facility] [address] [place], [address] Basic Metabolic Profile (BMP) Normal 133-145 [facility] Comment on above: Result Comment: QUES TIONABLE RESULTS. REORDERED Performed By: #### L 500.2500 #### [facility] [address] [place], [address] Basic metabolic 2000 panelon 01-27-2025 Anion gap [Moles/Vol] 14 mmol/L Normal 8-15 [facility] Comment on above: Order Comment: Speci men Type: BLOOD SPECIMEN Ordering Facility: [facility] Address: [address] [place] [address] Performed By: #### 2 4321-2 #### [facility] CLIA [id number] [address] [place] [address] [place] Calcium [Mass/Vol] 8.4 mg/dL Low 8.5-10.2 [facility] Comment on above: Order Comment: Speci men Type: BLOOD SPECIMEN Ordering Facility: [facility] Address: [facility] [place] [address] Performed By: #### 2 4321-2 #### [facility] CLIA [id number] [address] [place], [place] [address] [place] Chloride [Moles/Vol] 99 mmol/L Normal 98-107 [facility] Comment on above: Order Comment: Speci men Type: BLOOD SPECIMEN Ordering Facility: [facility] Address: [address] [place] [address] Performed By: #### 2 4321-2 #### [facility] CLIA [id number] [address] [place] [address] [place] CO2 [Moles/Vol] 16 mmol/L Low 22-30 [facility] Comment on above: Order Comment: Speci men Type: BLOOD SPECIMEN Ordering Facility: [facility] Address: [address] [place] [address] Performed By: #### 2 4321-2 #### [facility] CLIA [id number] [address] [place] [address] [place] Creatinine [Mass/Vol] 7.42 mg/dL High 0.73-1.22 [facility] Comment on above: Order Comment: Speci men Type: BLOOD SPECIMEN Ordering Facility: [facility] Address: [address] [place] [address] Performed By: #### 2 4321-2 #### [facility] CLIA [id number] [address] [place] [address] [place] Creatinine and Glomerular filtration rate.predicted panel (S/P/Bld) 8 mL/min/1.73m??? Low >=60 [facility] Comment on above: Order Comment: Speci men Type: BLOOD SPECIMEN Ordering Facility: [facility] Address: [address] [place] [address] Result Comment: Candace mated Glomerular Filtration Rate [...] GFR. Performed By: #### 2 4321-2 #### [facility] CLIA [id number] [address] [place] [address] [place] Glucose [Mass/Vol] 191 mg/dL High 74-99 [facility] Comment on above: Order Comment: Speci men Type: BLOOD SPECIMEN Ordering Facility: [facility] Address: [address] [place] [address] Result Comment: The [place] Diabetes [employer] (ADA) provides guidance for cutoff [...] Standards of Medical Care in Diabetes 2016, [place] [employer]. Diabetes Care. 2016.39(Suppl 1). Performed By: #### 2 4321-2 #### [facility] CLIA [id number] [address] [place] [address] [place] Potassium [Moles/Vol] 4.7 mmol/L Normal 3.7-5.1 [facility] Comment on above: Order Comment: Gabriel martin Type: BLOOD SPECIMEN Ordering Facility: [facility] Address: [address] [place] [address] Performed By: #### 2 4321-2 #### [facility] CLIA [id number] [address] [place] [address] [place] Sodium [Moles/Vol] 129 mmol/L Low 136-144 [facility] Comment on above: Order Comment: Gabriel men Type: BLOOD SPECIMEN Ordering Facility: [facility] Address: [address] [place] [address] Performed By: #### 2 4321-2 #### [facility] CLIA [id number] [address] [place] [address] [place] Urea nitrogen [Mass/Vol] 82 mg/dL High 9-24 [facility] Comment on above: Order Comment: Speci men Type: BLOOD SPECIMEN Ordering Facility: [facility] Address: [address] [place] [address] Performed By: #### 2 4321-2 #### [facility] CLIA [id number] [address] [place] [address] [place] Bedside Glucoseon 01-27-2025 FINGERSTICK GLU 127 mg/dL High 74-106 [facility] Comment on above: Result Comment: RACHEL GEMENT OF PATIENT CARE PER NURSING PROTOCOL Performed By: #### L 501.080 #### [facility] [address] [place], [address] FINGERSTICK GLU 128 mg/dL High 74-106 [facility] Comment on above: Result Comment: RACHEL GEMENT OF PATIENT CARE PER NURSING PROTOCOL Performed By: #### L 501.080 #### [facility] [address] [place], [address] FINGERSTICK GLU 168 mg/dL High 74-106 [facility] Comment on above: Result Comment: RACHEL GEMENT OF PATIENT CARE PER NURSING PROTOCOL Performed By: #### L 500.2500 #### [facility] [address] [place], [address] FINGERSTICK GLU 145 mg/dL High 74-106 [facility] Comment on above: Result Comment: RACHEL GEMENT OF PATIENT CARE PER NURSING PROTOCOL Performed By: #### L 501.080 #### [facility] [address] [place], [address] FINGERSTICK GLU 200 mg/dL High 74-106 [facility] Comment on above: Result Comment: RACHEL GEMENT OF PATIENT CARE PER NURSING PROTOCOL Performed By: #### L 501.080 #### [facility] [address] [place], [address] Beta-Hydroxbytyrateon 2024 BETA-HYDROXYBUT 0.0 mmol/L Normal 0.0-0.3 [facility] Comment on above: Performed By: #### L 500.2500, L100.0100 #### [facility] [address] [place], [address] Beta-hydroxybutyrateOrdered By: Yony Solis on 01-27-2025 Beta hydroxybutyrate [Mass/Vol] 0.0 mmol/L 0.0-0.3 [facility] CBC panel Auto (Bld)on 01-27 Erythrocyte distribution width (RBC) [Ratio] 11.6 % Normal 11.5-15.0 [facility] Comment on above: Order Comment: Speci men Type: SWAB Ordering Facility: [facility] Address: [address] [place] [address] Performed By: #### S APCR #### [facility] CLIA [id number] [address] [place] [address] [place] Hematocrit (Bld) [Volume fraction] 33.5 % Low 39.0-51.0 [facility] Comment on above: Order Comment: Speci men Type: SWAB Ordering Facility: [facility] Address: [address] [place] [address] Performed By: #### S APCR #### [facility] CLIA [id number] [address] [place] [address] [place] Hemoglobin (Bld) [Mass/Vol] 11.9 g/dL Low 13.0-17.0 [facility] Comment on above: Order Comment: Speci men Type: SWAB [facility]ing Facility: [facility] Address: [address] [place] [address] Performed By: #### S APCR #### [facility] CLIA [id number] [address] [place] [address] [place] MCH (RBC) [Entitic mass] 30.8 pg Normal 26.0-34.0 [facility] Comment on above: Order Comment: Speci men Type: SWAB Ordering Facility: [facility] Address: [address] [place] [address] Performed By: #### S APCR #### [facility] CLIA [id number] [address] [place] [address] [place] MCHC (RBC) [Mass/Vol] 35.5 g/dL Normal 30.5-36.0 [facility] Comment on above: Order Comment: Speci men Type: SWAB Ordering Facility: [facility] Address: [address] [place] [address] Performed By: #### S APCR #### [facility] CLIA [id number] [address] [place] [address] [place] MCV (RBC) [Entitic vol] 86.8 fL Normal 80.0-100.[address] [facility] Comment on above: Order Comment: Speci men Type: SWAB Ordering Facility: [facility] Address: [address] [place] [address] Performed By: #### S APCR #### [facility] CLIA [id number] [address] [place] [address] [place] Nucleated RBC (Bld) [#/Vol] 10*3/uL Normal <0.01 [facility] Comment on above: Order Comment: Speci men Type: SWAB Ordering Facility: [facility] Address: [address] [place] [address] Performed By: #### S APCR #### [facility] CLIA [id number] [address] [place] [address] [place] Platelet mean volume (Bld) [Entitic vol] 9.7 fL Normal 9.0-12.7 [facility] Comment on above: Order Comment: Speci men Type: SWAB Ordering Facility: [facility] Address: [address] [place] [address] Performed By: #### S APCR #### [facility] CLIA [id number] [address] [place] [address] [place] Platelets (Bld) [#/Vol] 167 10*3/uL Normal 150-400 [facility] Comment on above: Order Comment: Speci men Type: SWAB Ordering Facility: [facility] Address: [address] [place] [address] Performed By: #### S APCR #### [facility] CLIA [id number] [address] [place] [address] [place] RBC (Bld) [#/Vol] 3.86 10*6/uL Low 4.20-6.00 [facility] Comment on above: Order Comment: Speci men Type: SWAB Ordering Facility: [facility] Address: [address] [place] [address] Performed By: #### S APCR #### [facility] CLIA [id number] [address] [place] [address] [place] WBC (Bld) [#/Vol] 9.72 10*3/uL Normal 3.70-11.00 [facility] Comment on above: Order Comment: Speci men Type: SWAB Ordering Facility: [facility] Address: [address] [place] [address] Performed By: #### S APCR #### [facility] CLIA [id number] [address] [place] [address] [place] CNPKaley 01-27-2025 CNPN Telephone (Angio) ITALO BURGOS ([id number]) 1970 M Date Time Provider Department 01/27/25 [...] for Visit: IR Inpatient Tube Appointment Request [[id number]] Prescriptions as of 01/28/2025 - carvedilol (COREG) [...] 3 mg/actuation nasal spray (BAQSIMI) Use 1 [place] in the nose as needed for low [...] (HC*03/23/2021 Immunodeficienc (more content not included)... [facility] IT[facility]UR[facility] ([id number]) 1970 M Date Time Provider Department 01/27/25 AMANDA HAYES TXCTGL During your visit today, we recorded the following information about you: Amanda Hayes, TELEPHONE STATION INSTALLER 01/27/2025 1:58 PM Signed ADDY attempted to call pt regarding the possibility of being him homeless. ADDY was unable to leave a message. SW will attempt to contact pt at a later time. SARA Sahu-S Transplant Alligator Trapper Allergies As of Date: 01/27/2025 (No Known [...] in pm - Blood-Glucose Meter,Continuous (DEXCOM G6 FORESTRY HUNTER) misc 1 Each continuous. - Blood-Glucose Sensor [...] Units subcutaneously daily at bedtime. - Insulin [place], Disposable, (BD ULTRA-FINE SANDRA PEN NEEDLE) 32 [...] 3 mg/actuation nasal spray (BAQSIMI) Use 1 [place] in the nose as needed for low [...] Noted Resol (more content not included)... 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 Labs on presentation significant for LIDA BUN/Cr 90/10.50, hyponatremia, and acidosis. 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 Normal [facility] CONSULT HNO ID: [id number] Author: DYLAN URIBE MD Service: Urology Author Type: Resident Type: Consults Filed: 01/27/2025 06:42 Note Text: [facility] UROLOGY CONSULT [...] Dr. Cummings. Dylan Uribe MD Urology Resident Formerly [facility], 1928–1983 Urologic and [facility] [place] Pager [phone] For weekend or after hours issues please [...] 90 capsuleRfl: 11 Blood-Glucose Meter,Continuous (DEXCOM G6 FORESTRY HUNTER) misc1 Each continuous.Disp: 1 EachRfl: 0 Blood-Glucose Sensor (DEXCOM G6 SENSOR) devi1 Each continuous.Disp: 9 EachRfl: 3 Blood-Glucose Transmitter (DEXCOM G6 TRANSMITTER) devi1 Each continuous.Disp: 1 EachRfl: 0 carvedilol (COREG) 25 mg tabletTake 1 tablet by mouth two times a day.Disp: 60 tabletRfl: 11 losartan (COZAAR) 25 mg tabletTake 2 tab (more content not included)... Normal [facility] Carbon dioxide, total [Moles /volume] in Central venous bloodOrdered By: Yony Solis on 01-27-2025 CO2 [Moles/Vol] 16.7 mmol/L Low 21.0-32.0 [facility] Chloride assayOrdered By: Aldair Solis on 01-27-2025 Chloride [Moles/Vol] 94 mmol/L Low 98-108 [facility] metabolic 2000 panelon 01-27-2025 Albumin [Mass/Vol] 2.6 g/dL Low 3.9-4.9 [facility] Comment on above: Order Comment: Speci men Type: SWAB Order[facility] Facility: [facility] Address: [address] [place] [address] Performed By: #### S APCR #### [facility] CLIA [id number] [address] [place] [address] [place] ALP [Catalytic activity/Vol] 100 U/L Normal 38-113 [facility] Comment on above: Order Comment: Speci men Type: SWAB [facility]ing Facility: [facility] Address: [address] [place] [address] Performed By: #### S APCR #### [facility] CLIA [id number] [address] [place] [address] [place] ALT [Catalytic activity/Vol] 11 U/L Normal 10-54 [facility] Comment on above: Order Comment: Speci men Type: SWAB Ordering Facility: [facility] Address: [address] [place] [address] Performed By: #### S APCR #### [facility] CLIA [id number] [address] [place] [address] [place] Anion gap [Moles/Vol] 16 mmol/L High 8-15 [facility] Comment on above: Order Comment: Speci men Type: SWAB Ordering Facility: [facility] Address: [address] [place] [address] Performed By: #### S APCR #### [facility] CLIA [id number] [address] [place] [address] [place] AST [Catalytic activity/Vol] 13 U/L Low 14-40 [facility] Comment on above: Order Comment: Speci men Type: SWAB Ordering Facility: [facility] Address: [address] [place] [address] Result Comment: Resu lts may be falsely increased due to interference from hemolysis. Suggest reorder as clinically indicated. Performed By: #### S APCR #### [facility] CLIA [id number] [address] [place] [address] [place] Bilirubin [Mass/Vol] 0.5 mg/dL Normal 0.2-1.3 [facility] Comment on above: Order Comment: Speci men Type: SWAB Ordering Facility: [facility] Address: [address] [place] [address] Performed By: #### S APCR #### [facility] CLIA [id number] [address] [place] [address] [place] Calcium [Mass/Vol] 8.1 mg/dL Low 8.5-10.2 [facility] Comment on above: Order Comment: Speci men Type: SWAB Ordering Facility: [facility] Address: [address] [place] [address] Performed By: #### S APCR #### [facility] CLIA [id number] [address] [place] [address] [place] Chloride [Moles/Vol] 94 mmol/L Low 98-107 [facility] Comment on above: Order Comment: Speci men Type: SWAB Ordering Facility: [facility] Address: [address] [place] [address] Performed By: #### S APCR #### [facility] CLIA [id number] [address] [place] [address] [place] CO2 [Moles/Vol] 16 mmol/L Low 22-30 [facility] Comment on above: Order Comment: Speci men Type: SWAB Ordering Facility: [facility] Address: [address] [place] [address] Performed By: #### S APCR #### [facility] CLIA [id number] [address] [place] [address] [place] Creatinine [Mass/Vol] 9.90 mg/dL High 0.73-1.22 [facility] Comment on above: Order Comment: Speci men Type: SWAB Ordering Facility: [facility] Address: [address] [place] [address] Performed By: #### S APCR #### [facility] CLIA [id number] [address] [place] [address] [place] Creatinine and Glomerular filtration rate.predicted panel (S/P/Bld) 6 mL/min/1.73m??? Low >=60 [facility] Comment on above: Order Comment: Speci men Type: SWAB Ordering Facility: [facility] Address: [address] [place] [address] Result Comment: Candace mated Glomerular Filtration Rate [...] GFR. Performed By: #### S APCR #### [facility] CLIA [id number] [address] [place] [address] [place] Glucose [Mass/Vol] 145 mg/dL High 74-99 [facility] Comment on above: Order Comment: Speci men Type: SWAB Ordering Facility: [facility] Address: [address] [place] [address] Result Comment: The [place] Diabetes Association (ADA) provides guidance for cutoff [...] Standards of Medical Care in Diabetes 2016, [place] [employer]. Diabetes Care. 2016.39(Suppl 1). Performed By: #### S APCR #### [facility] CLIA [id number] [address] [place] [address] [place] Potassium [Moles/Vol] 4.8 mmol/L Normal 3.7-5.1 [facility] Comment on above: Order Comment: Speci men Type: SWAB Ordering Facility: [facility] Address: [address] [place] [address] Performed By: #### S APCR #### [facility] CLIA [id number] [address] [place] [address] [place] Protein [Mass/Vol] 5.0 g/dL Low 6.3-8.0 [facility] Comment on above: Order Comment: Speci men Type: SWAB Ordering Facility: [facility] Address: [address] [place] [address] Performed By: #### S APCR #### [facility] CLIA [id number] [address] [place] [address] [place] Sodium [Moles/Vol] 126 mmol/L Low 136-144 [facility] Comment on above: Order Comment: Speci men Type: SWAB Ordering Facility: [facility] Address: [address] [place] [address] Performed By: #### S APCR #### [facility] CLIA [id number] [address] [place] [address] [place] Urea nitrogen [Mass/Vol] 83 mg/dL High 9-24 [facility] Comment on above: Order Comment: Speci men Type: SWAB Ordering Facility: [facility] Address: [address] [place] [address] Performed By: #### S APCR #### [facility] CLIA [id number] [address] [place] [address] [place] ECG COMPLETEon 01-27-2025 ECG COMPLETE Ventricular Rate : 7 0 BPM Atrial Rate : 70 BPM P-R Interval : 206 ms QRS Duration : 116 ms Q-T Interval : 422 ms QTC Calculation(Bazett) : 455 ms Calculated P [place] : 23 degrees Calculated R [place] : -32 degrees Calculated T [place] : 8 degrees SINUS RHYTHM WITH OCCASIONAL PREMATURE VENTRICULAR COMPLEXES LEFT AXIS DEVIATION ANTEROSEPTAL MYOCARDIAL INFARCTION , AGE UNDETERMINED ABNORMAL ECG Confirmed by MD RICHTER HEBA ([id number]) on 02/22/2025 10:43:13 AM NAME : ITALO BURGOS PID : [id number] : 1970 Gender : Male Race : ORD : [id number] Procedure Date : Jan 27 2025 06:15:13 Edit Date : Feb 22 2025 10:43:15 Diagnosis: SINUS RHYTHM WITH OCCASIONAL PREMATURE VENTRICULAR COMPLEXES LEFT AXIS DEVIATION ANTEROSEPTAL MYOCARDIAL INFARCTION , AGE UNDETERMINED ABNORMAL ECG Confirmed by MD RICHTER HEBA ([id number]) on 02/22/2025 10:43:13 AM Test Reason : Pre-OP Location : 35 : [place] [address] Overread By : MD RICHTER HEBA Edited By : MD RICHTER HEBA Referred By : YONY SOLIS Acquired by : DIVYA GONSALEZ [facility] Glomerular filtration rate ( GFR) estimation/1.73 sq m using serum, plasma, or whole bOrdered By: Yony Solis on 01-27-2025 GFR/1.73 sq M.predicted among non-blacks MDRD (S/P/Bld) [Vol rate/Area] 5 mL/min/{1.73_m2} Low >60 [facility] Comment on above: mL/min/1.73m2 CKD-EP I Creatinine Equation (2020) [facility] deOrdered By: Yony Solis on 01-27-2025 Glucose [Mass/Vol] 127 mg/dL High 74-106 [facility] Comment on above: MANAGEMENT OF PATIEN T CARE PER NURSING PROTOCOL Glucose [Mass/Vol] 128 mg/dL High 74-106 [facility] Comment on above: MANAGEMENT OF PATIEN T CARE PER NURSING PROTOCOL HISTORY PHYSICALon HISTORY PHYSICAL HNO ID: [id number] Author: KATHIA SANTIAGO MD Service: General Internal Medicine Author Type: Resident Type: H&P Filed: 01/27/2025 18:45 Note Text: Attestation signed by Kathia Santiago MD at 01/27/2025 6:45 PM (Updated) I have seen the patient face to face and reviewed the history and physical examination obtained and documented by the resident/ fellow/ physician buyer assistant. I personally participated in the de anda [...] Zaida Gaston MD NIGHT AND WEEKEND COVERAGE: [facility] COVERAGE: Days: [phone], please page Joel Negro Tavares for patient [...] in the right transplanted kidney ureter causing lnnzqfkt-yg-qnnzzl hydroureteronephrosis, perinephric stranding, and a thickened bladder wall suggestive of cystitis. Transferred to [facility] for higher level care, urology placed [...] Date Acute diastolic (congestive) heart failure ([facility]) Bronchitis Chronic kidney failure, stage 4 (severe) ([facility]) 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 ([facility]) 12/16/2018 Depression Detached retina DM type 2, goal HbA1c < 7% ([facility]) Erectile dysfunction, unspecified erectile dysfunction type ESRD (end stage renal disease) ([facility]) GERD (gastroesophageal reflux disease) Hyperlipidemia Kidney replaced by transplant ([facility]) Kidney stones LUANNE (obstructive sleep apnea) PNA [...] AND STENT 1999 EGD 12/04/2018 [facility]IC[facility]J 04/01/2024 PAST SURGICAL HISTORY OF Left 2012 AND 2014 removal eye fluid with instillation oil FAMILY HISTORY Problem Relation Age of Onset Colon Cancer Father 53 Diabetes Brother 52 Diabetes Sister Diabetes Mother 78 Heart Attack Mother Cancer Brother 49 lung Diabetes Son Social History Tobacco Use Smoking status: Never Smokeless tobacco: Former Type (more content not included)... Normal [facility] HISTORY PHYSICAL HNO ID: [id number] Author: TENZIN DANIEL MD Service: Interventional Radiology [...] 27, 2025 TIME: 7:58 AM PAGER: Normal [facility] HISTORY PHYSICAL HNO ID: [id number] Author: RAY PINA MD Service: Critical Care Author Type: Physician Type: H&P Filed: 01/27/2025 08:58 Note Text: MICU: HISTORY AND PHYSICAL Italo Burgos [id number] ADMISSION DATE: 01/27/2025 LENGTH OF STAY: 0 MICU DAY: PRIMARY CARE PHYSICIAN: Zaida Gaston MD Subjective Chief Complaint ILDA History of Present Illness Italo Burgos is a 54 year old male with ILDA from [facility]. PMH s/f T2DM c/b ESRD s/p DDRT 03/2021 (envarsus, MMF, pred) with graft CKD (baseline cr 1.4-1.6), HTN, GERD, MDD, L foot infections s/p toe amputations. Per OSH and records, CT A/P showed 1cm obstructing stone in transplanted R kidney with zdatuoaq-zv-xntkzm upstream hydroureteronephrosis; severely thickened urinary bladder wall [...] to arrival to MICU: At [facility], c/f DKA, ILDA. DKA ruled out based [...] Date Acute diastolic (congestive) heart failure ([facility]) Bronchitis Chronic kidney failure, stage 4 (severe) ([facility]) 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 ([facility]) 12/16/2018 Depression Detached retina DM type 2, goal HbA1c < 7% ([facility]) Erectile dysfunction, unspecified erectile dysfunction type ESRD (end stage renal disease) ([facility]) GERD (gastroesophageal reflux disease) Hyperlipidemia Kidney replaced by transplant ([facility]) Kidney stones LUANNE (obstructive sleep apnea) PNA [...] AND STENT 1999 EGD 12/04/2018 EGD W/O [facility] SPEC VARICIES INJ 04/01/2024 [...] Exam BP (more content not included)... Normal [facility] IR NEPHROSTOMY TUBE PLACEon 01-27-2025 IR [...] was performed. Genitourinary catheter placed: 10 F [employer] nephrostomy Findings: Severe hydronephrosis on ultrasound [...] The procedure was performed by the: the credit control assistant, and the attending radiologist was present for all critical and de anda portions of the procedure, and was immediately available to furnish services during the entire procedure. The attending radiologist performed the (more content not included)... Normal [facility] Magnesium SerPl-mCncon 01-27 Magnesium [Mass/Vol] 1.8 mg/dL Normal 1.7-2.3 [facility] Comment on above: Order Comment: Speci men Type: SWAB [facility] Facility: [facility] Address: [address] [place] [address] Performed By: #### S APCR #### [facility] CLIA [id number] [address] [place] [address] [place] [address] [place] NURSING PROGon 01-27-2025 NURSING PROG HNO ID: [id number] Author: WILLIAM THIBODEAUX, ANDER Service: Nursing Author Type: Registered Nurse Type: Nursing Progress Note Filed: 01/27/2025 19:35 Note Text: Other: Blood pressure 89/41, patient denies dizziness/chest pain. notified. 500 cc bolus given. Repeat blood pressure 107/63. Normal [facility] PT EDon 01-27-2025 PT ED HNO ID: [id number] Author: NELI GUTIERREZ RN Service: Nursing Author [...] RN In Department: HOSP MAIN G062 Normal [facility] PT panel Coag (PPP)on 2024 INR Coag (PPP) [Relative time] 1.0 {INR} Normal 0.9-1.3 [facility] Comment on above: Order Comment: Speci men Type: BLOOD SPECIMEN [facility]ing Facility: [facility] Address: [address] [place] [address] Result Comment: Kenzie min K Antagonist (VKA) Therapeutic Range: INR 2 to 3 (Target INR of 2.5) Note: For patients treated with VKA drugs, such as warfarin, the [place] [employer] 2012 Guideline recommends [...] Chest 2012, 141:7S-47S Aline RA, et al. [facility] 2017, 70: 252-289 Performed By: #### 1 1253-2 #### [facility] CLIA [id number] [address] [place] [address] [place] PT Coag (PPP) [Time] 11.0 s Normal 9.7-13.0 [facility] Comment on above: Order Comment: Speci men Type: BLOOD SPECIMEN [facility]ing Facility: [facility] Address: [address] [place] [address] Performed By: #### 1 1253-2 #### [facility] CLIA [id number] [address] [place] [address] [place] Phosphate SerPl-mCncon 01-27 Phosphate [Mass/Vol] 5.5 mg/dL High 2.7-4.8 [facility] Comment on above: Order Comment: Speci men Type: SWAB [facility]ing Facility: [facility] Address: [address] [place] [address] Performed By: #### S APCR #### [facility] CLIA [id number] [address] [place] [address] [place] Potassium measurement (mass/ volume)Ordered By: Yony Solis on 01-27-2025 Potassium (Unsp spec) [Mass/Vol] 4.6 mmol/L 3.3-5.1 [facility] STAPHYLOCOCCUS AUREUS AND MR SA SCREEN, PCR, NASALon 01-27-2025 S. aureus and MRSA panel CARMEN+probe (Nose) Not detected Normal Not Detected [facility] Comment on above: Order Comment: Speci men Type: SWAB Ordering Facility: [facility] Address: [address] [place] [address] Performed By: #### S APCR #### [facility] CLIA [id number] [address] [place], [place] [address] [place] [address] [place] Serum creatinine measurement (mass/volume)Ordered By: Yony Solis on 01-27-2025 Creatinine [Mass/Vol] 10.50 mg/dL High 0.70-1.20 [facility] Comment on above: Critical Result(s) C alled at: 0222 by: RUDY ALFRED Results read back by same. Serum glucose measurement (m ass/volume)Ordered By: Yony Solis on 01-27-2025 Glucose [Mass/Vol] 116 mg/dL High 70-99 [facility] Serum or plasma calcium regi urement (mass/volume)Ordered By: Yony Solis on 01-27-2025 Calcium [Mass/Vol] 8.2 mg/dL 7.6-11.0 [facility] Serum or plasma urea nitroge n measurement (mass/volume)Ordered By: Yony Solis on 01-27-2025 Urea nitrogen [Mass/Vol] 90 mg/dL High 4-19 [facility] Sodium levelOrdered By: Yony Solis on 01-27-2025 Sodium [Moles/Vol] 126 mmol/L Low 133-145 [facility] TYPE + SCREENon 01-27-2025 ABO A Normal [facility] Comment on above: Order Comment: Speci men Type: BLOOD SPECIMEN Ordering Facility: [facility] Address: [address] [place] [address] Performed By: #### T SCR #### [facility] [place] [id number] [address] [place] [address] [place] Rh Nom (Bld) Positive Normal [facility] Comment on above: Order Comment: Speci men Type: BLOOD SPECIMEN Ordering Facility: [facility] Address: [address] [place] [address] Performed By: #### T SCR #### [facility] CLIA [id number] [address] [place], [place] [address] [place] [address] [place] TYPE AND SCREEN EXPIRATION 01/30/2025 23:59 Normal [facility] Comment on above: Order Comment: Speci men Type: BLOOD SPECIMEN Ordering Facility: [facility] Address: [address] [place] [address] Performed By: #### T SCR #### [facility] CLIA [id number] [address] [place] [address] [place] Tacrolimus Bld-mCncon 2024 Tacrolimus (Bld) [Mass/Vol] 13.4 ng/mL Normal 5.0-20.0 [facility] Comment on above: Order Comment: Gabriel martin Type: SWAB Ordering Facility: [facility] Address: [address] [place] [address] Result Comment: Eileen vidualized target levels for [...] i. Performed By: #### S APCR #### [facility] CLIA [id number] [address] [place] [address] [place] Urinalysis complete panel (U )on 01-27-2025 Bacteria LM.HPF (Urine sed) [#/Area] Negative Normal Negative [facility] Comment on above: Order Comment: Gabriel martin Type: BLOOD SPECIMEN Ordering Facility: [facility] Address: [address] [place] [address] Performed By: #### 1 1253-2 #### [facility] CLIA [id number] [address] [place] [address] [place] Bilirubin Ql (U) 2+ Abnormal Negative [facility] Comment on above: Order Comment: Gabriel martin Type: BLOOD SPECIMEN Ordering Facility: [facility] Address: [address] [place] [address] Result Comment: Sugg est correlation with clinical findings and serum bilirubin if clinically indicated. Performed By: #### 1 1253-2 #### [facility] CLIA [id number] [facility] [address] [address] [place] Clarity (Unsp spec) Turbid Abnormal Clear [facility] Comment on above: Order Comment: Speci men Type: BLOOD SPECIMEN Ordering Facility: [facility] Address: [address] [place], [place] [address] Performed By: #### 1 1253-2 #### [facility] CLIA [id number] [address] [place], [place] [address] [place] Color (U) Red Abnormal Yellow [facility] Comment on above: Order Comment: Speci men Type: BLOOD SPECIMEN Ordering Facility: [facility] Address: [address] [place] [address] Performed By: #### 1 1253-2 #### [facility] CLIA [id number] [address] [place] [address] [place] Epithelial cells LM.HPF (Urine sed) [#/Area] None Seen Normal [facility] Comment on above: Order Comment: Speci men Type: BLOOD SPECIMEN Ordering Facility: [facility] Address: [address] [place] [address] Performed By: #### 1 1253-2 #### [facility] CLIA [id number] [address] [place] [address] [place] Glucose Test strip (U) [Mass/Vol] Negative Normal Negative [facility] Comment on above: Order Comment: Speci men Type: BLOOD SPECIMEN Ordering Facility: [facility] Address: [address] [place], [place] [address] Performed By: #### 1 1253-2 #### [facility] CLIA [id number] [address] [place], [place] [address] [place] Hemoglobin Ql (U) 3+ Abnormal Negative [facility] Comment on above: Order Comment: Speci men Type: BLOOD SPECIMEN Ordering Facility: [facility] Address: [address] [place] [address] Performed By: #### 1 1253-2 #### [facility] CLIA [id number] [address] [place] [address] [place] Hyaline casts (Urine sed) [#/Area] 0 /[LPF] Normal 0 /LPF [facility] Comment on above: Order Comment: Speci men Type: BLOOD SPECIMEN Ordering Facility: [facility] Address: [address] [place] [address] Performed By: #### 1 1253-2 #### [facility] CLIA [id number] [address] [place] [address] [place] Ketones Ql (U) Negative Normal Negative [facility] Comment on above: Order Comment: Speci men Type: BLOOD SPECIMEN Ordering Facility: [facility] Address: [address] [place] [address] Performed By: #### 1 1253-2 #### [facility] CLIA [id number] [address] [place] [address] [place] Leukocyte esterase Test strip Ql (U) 2+ Abnormal Negative [facility] Comment on above: Order Comment: Speci men Type: BLOOD SPECIMEN Ordering Facility: [facility] Address: [address] [place] [address] Performed By: #### 1 1253-2 #### [facility] CLIA [id number] [address] [place] [address] [place] Nitrite Ql (U) Positive Abnormal Negative [facility] Comment on above: Order Comment: Speci men Type: BLOOD SPECIMEN Ordering Facility: [facility] Address: [address] [place] [address] Performed By: #### 1 1253-2 #### [facility] CLIA [id number] [address] [place] [address] [place] pH (U) 5.0 [pH] Normal <8.5 [facility] Comment on above: Order Comment: Speci men Type: BLOOD SPECIMEN Ordering Facility: [facility] Address: [address] [place] [address] Performed By: #### 1 1253-2 #### [facility] CLIA [id number] [address] [place] [address] [place] Protein (U) [Mass/Vol] 3+ Abnormal Negative Cl [facility] Comment on above: Order Comment: Speci men Type: BLOOD SPECIMEN Ordering Facility: [facility] Address: [address] [place] [address] Performed By: #### 1 1253-2 #### [facility] CLIA [id number] [address] [place] [address] [place] RBC LM.HPF (Urine sed) [#/Area] /[HPF] Abnormal 0-2 /HPF [facility] Comment on above: Order Comment: Speci men Type: BLOOD SPECIMEN Ordering Facility: [facility] Address: [address] [place] [address] Performed By: #### 1 1253-2 #### [facility] CLIA [id number] [address] [place] [address] [place] Specific gravity (U) [Rel density] 1.017 Normal 1.005-1.030 [facility] Comment on above: Order Comment: Speci men Type: BLOOD SPECIMEN Ordering Facility: [facility] Address: [address] [place] [address] Performed By: #### 1 1253-2 #### [facility] CLIA [id number] [address] [place] [address] [place] Urobilinogen Ql (U) 0.2 EU/dL Normal 0.2-1.0 EU/dL [facility] Comment on above: Order Comment: Speci men Type: BLOOD SPECIMEN Ordering Facility: [facility] Address: [address] [place] [address] Performed By: #### 1 1253-2 #### [facility] CLIA [id number] [address] [place] [address] [place] WBC LM.HPF (Urine sed) [#/Area] 0-5 /HPF Normal 0-5 /HPF [facility] Comment on above: Order Comment: Speci men Type: BLOOD SPECIMEN Ordering Facility: [facility] Address: [address] [place] [address] Performed By: #### 1 1253-2 #### [facility] CLIA [id number] [address] [place] [address] [place] Urine Cultureon 01-27-2025 URC Culture exhibits no growth. Normal [facility] Comment on above: Performed By: #### L 500.2500, L100.0100 #### [facility] [address] [place] [address]. [place], [place], [id number] aPTT PPPon 01-27-2025 aPTT Coag (PPP) [Time] 27.0 s Normal 23.0-32.4 [facility] Comment on above: Order Comment: Speci men Type: BLOOD SPECIMEN Ordering Facility: [facility] Address: [address] [place] [address] Performed By: #### 1 1253-2 #### [facility] [place] [id number] [address] [place] [address] [place] 12 Lead EKGon 01-26-2025 12 Lead EKG [facility] [address] [place] [address] 12 Lead EKG 01/26/25 1652 MR#: [id number] Acct: [id number] Name: ITALO BURGOS Rep #: [id number] : 1970 54 From: Tylor Rudd MD [...] for LVH, may be normal variant ( [place] product ) Cannot rule out Septal infarct Abnormal ECG Confirmed by IBRAHIMA NORTON, TYLOR ([id number]), video effects editor JEANETTE MARQUEZ ([id number]) on 01/27/2025 10:36:28 AM Referred By: Confirmed By: TYLOR RUDD MD 01/27/25 1036 Date Tylor Rudd MD CC: Dr. Zaida Gaston MD; Dr. Yony Solis DO Signed Normal [facility] Abdomen/Pelvis without Conto n 01-26-2025 Abdomen/Pelvis without Cont [facility] Services [address] [place] [address] Abdomen/Pelvis without Cont MR#: [id number] Acct: [id number] Name: ITALO BURGOS Rep #: [id number] : 1970 54 From: Gen Jack MD PCP: Dr. Zaida Gaston MD Status: REG ER Study: Abdomen/Pelvis without Cont Date of Exam: 01/08 Exam# [id number] Ordering Dr: Yony Solis DO PROCEDURE: ABDOMEN/PELVIS [...] surrounding inflammation. Adrenals: Normal. Kidneys: Severely atrophic curyung kidneys. Right pelvic transplanted kidney transplanted right kidney ureter 10 mm calculus with severe upstream hydroureteronephrosis. Transplant kidney perinephric stranding which may represent back pressure. Bladder: Markedly concentrically thickened wall. Reproductive Organs: Unremarkable Bowel: Appendix: Lymph nodes: Vasculature: Peritoneum / Retroperitoneum: Mild atherosclerosis. Small volume ascites. Bones: CT/Abdomen/Pelvis without Cont IMPRESSION: 1. Transplanted right kidney obstructing ureteral calculus with [id number] upstream hydroureteronephrosis. 2. Severely thickened urinary bladder wall suspicious for cystitis. 3. Severely atrophic curyung kidneys. 4. Anasarca. 5. Small volume ascites. OVERALL FINAL ASSESSMENT: . LI-RADS is not meant to be used in patients <18 years or patients with cirrhosis due to congenital hepatic fibrosis or due to vascular disorders, because these patients have a lower chance of developing HCC. Reading Location: [place] [address] CC: Dr. Zaida Gaston MD; Dr. Yony Solis DO Aircraft Sales Representative: Signed Normal [facility] Absolute lymphocyte countOrd ered By: ED PROVIDER on 01-26-2025 Lymphocytes Auto (Unsp spec) [#/Vol] 0.56 10*3/uL Low 0.83-4.51 [facility] Absolute neutrophil countOrd ered By: ED PROVIDER on 01-26-2025 Neutrophils (Bld) [#/Vol] 8.1 10*3/uL High 2.0-7.7 [facility] Amorphous sediment detection in urine sediment by light microscopyOrdered By: Yony Solis on 01-26-2025 Amorphous sediment LM Ql (Urine sed) 1+ [facility] Automated blood erythrocyte countOrdered By: ED PROVIDER on 01-26-2025 RBC (Bld) [#/Vol] 4.14 10*6/uL Low 4.6-6.2 [facility] Comment on above: Performed By: #### L 500.2500 #### [facility] [address] [place], [address] Automated blood hematocrit ( percentage)Ordered By: ED PROVIDER on 01-26-2025 Hematocrit (Bld) [Volume fraction] 37.1 % Low 40-54 [facility] Comment on above: Performed By: #### L 500.2500 #### [facility] [address] [place], [address] Automated lymphocyte count a s percentage of total leukocytesOrdered By: ED PROVIDER on 01-26-2025 Lymphocytes/100 WBC Auto (Unsp spec) 5.9 % Low 19-41 [facility] Basic Metabolic Profile (BMP )on 01-26-2025 BUN/CRE 9.4 RATIO Low 10-20 [facility] Comment on above: Performed By: #### L 500.2500, L100.0100 #### [facility] [address] [place], [address] Calcium [Mass/Vol] 5.6 mg/dL Invalid Interpretation Code 7.6-11.0 [facility] Comment on above: Result Comment: Crit ical Result(s) Called at: 2341 by: RUDY KELLEY TO SYDNEE DOUGHERTY??Results read back by same. Performed By: #### L 500.2500, L100.0100 #### [facility] [address] [place], [address] Chloride [Moles/Vol] 108 mmol/L Normal 98-108 [facility] Comment on above: Performed By: #### L 500.2500, L100.0100 #### [facility] [address] [place], [address] CO2 [Moles/Vol] 13.1 mmol/L Low 21.0-32.0 [facility] Comment on above: Performed By: #### L 500.2500, L100.0100 #### [facility] [address] [place], [address] Creatinine [Mass/Vol] 7.23 mg/dL High 0.70-1.20 [facility] Comment on above: Performed By: #### L 500.2500, L100.0100 #### [facility] [address] [place], [address] ECRCL 12.21 ml/min Low 50-250 [facility] Comment on above: Performed By: #### L 500.2500, L100.0100 #### [facility] [address] [place], [address] GAP 13 Normal 5-15 [facility] Comment on above: Performed By: #### L 500.2500, L100.0100 #### [facility] [address] [place], [address] GFR/1.73 sq M.predicted among non-blacks MDRD (S/P/Bld) [Vol rate/Area] 8 mL/min/{1.73_m2} Low >60 [facility] Comment on above: Result Comment: mL/m in/1.73m2 CKD-EPI Creatinine Equation (2020) Performed By: #### L 500.2500, L100.0100 #### [facility] [address] [place], [address] Glucose [Mass/Vol] 225 mg/dL High 70-99 [facility] Comment on above: Performed By: #### L 500.2500, L100.0100 #### [facility] [address] [place], [address] Potassium [Moles/Vol] 3.0 mmol/L Low 3.3-5.1 [facility] Comment on above: Performed By: #### L 500.2500, L100.0100 #### [facility] [address] [place], [address] Sodium [Moles/Vol] 133 mmol/L Normal 133-145 [facility] Comment on above: Performed By: #### L 500.2500, L100.0100 #### [facility] [address] [place], [address] Urea nitrogen [Mass/Vol] 68 mg/dL High 4-19 [facility] Comment on above: Performed By: #### L 500.2500, L100.0100 #### [facility] [address] [place], [address] BUN/CRE 8.9 RATIO Low 10-20 [facility] Comment on above: Performed By: #### L 500.2500, L100.0100 #### [facility] [address] [place], [address] Calcium [Mass/Vol] 7.0 mg/dL Low 7.6-11.0 [facility] Comment on above: Performed By: #### L 500.2500, L100.0100 #### [facility] [address] [place], [address] Chloride [Moles/Vol] 79 mmol/L Low 98-108 [facility] Comment on above: Performed By: #### L 500.2500, L100.0100 #### [facility] [address] [place], [address] CO2 [Moles/Vol] 13.8 mmol/L Low 21.0-32.0 [facility] Comment on above: Performed By: #### L 500.2500, L100.0100 #### [facility] [address] [place], [address] Creatinine [Mass/Vol] 8.95 mg/dL Invalid Interpretation Code 0.70-1.20 [facility] Comment on above: Result Comment: Crit ical Result(s) Called at: by:??Results read back by same. Critical Result(s) Called ASCHAFER at: 2155 by: SOUTH??Results read back by same. Performed By: #### L 500.2500, L100.0100 #### [facility] [address] [place], [address] ECRCL 9.87 ml/min Invalid Interpretation Code 50-250 [facility] Comment on above: Performed By: #### L 500.2500, L100.0100 #### [facility] [address] [place], [address] GAP 25 High 5-15 [facility] Comment on above: Performed By: #### L 500.2500, L100.0100 #### [facility] [address] [place], [address] GFR/1.73 sq M.predicted among non-blacks MDRD (S/P/Bld) [Vol rate/Area] 6 mL/min/{1.73_m2} Low >60 [facility] Comment on above: Result Comment: mL/m in/1.73m2 CKD-EPI Creatinine Equation (2020) Performed By: #### L 500.2500, L100.0100 #### [facility] [address] [place], [address] Glucose [Mass/Vol] 877 mg/dL Invalid Interpretation Code 70-99 [facility] Comment on above: Result Comment: Crit ical Result(s) Called ASCHAFER at: 2155 by: BWORKMAN??Results read back by same. Performed By: #### L 500.2500, L100.0100 #### [facility] [address] [place], [address] Potassium [Moles/Vol] 4.3 mmol/L Normal 3.3-5.1 [facility] Comment on above: Performed By: #### L 500.2500, L100.0100 #### [facility] [address] [place], [address] Sodium [Moles/Vol] 117 mmol/L Invalid Interpretation Code 133-145 [facility] Comment on above: Result Comment: Crit ical Result(s) Called ASCHAFER at: 2155 by: BWORKMAN??Results read back by same. Performed By: #### L 500.2500, L100.0100 #### [facility] [address] [place], [address] Urea nitrogen [Mass/Vol] 80 mg/dL High 4-19 [facility] Comment on above: Performed By: #### L 500.2500, L100.0100 #### [facility] [address] [place], [address] BUN/CRE 8.9 RATIO Low 10-20 [facility] Comment on above: Performed By: #### L 500.2500 #### [facility] [address] [place], [address] Calcium [Mass/Vol] 7.5 mg/dL Low 7.6-11.0 [facility] Comment on above: Performed By: #### L 500.2500 #### [facility] [address] [place], [address] Chloride [Moles/Vol] 90 mmol/L Low 98-108 [facility] Comment on above: Performed By: #### L 500.2500 #### [facility] [address] [place], [address] CO2 [Moles/Vol] 14.3 mmol/L Low 21.0-32.0 [facility] Comment on above: Performed By: #### L 500.2500 #### [facility] [address] [place], [address] Creatinine [Mass/Vol] 9.55 mg/dL Invalid Interpretation Code 0.70-1.20 [facility] Comment on above: Result Comment: Crit ical Result(s) Called LSPARR at: 2012 by: SOUTH??Results read back by same. Performed By: #### L 500.2500 #### [facility] [address] [place], [address] ECRCL 9.25 ml/min Invalid Interpretation Code 50-250 [facility] Comment on above: Performed By: #### L 500.2500 #### [facility] [address] [place], [address] GAP 17 High 5-15 [facility] Comment on above: Performed By: #### L 500.2500 #### [facility] [address] [place], [address] GFR/1.73 sq M.predicted among non-blacks MDRD (S/P/Bld) [Vol rate/Area] 6 mL/min/{1.73_m2} Low >60 [facility] Comment on above: Result Comment: mL/m in/1.73m2 CKD-EPI Creatinine Equation (2020) Performed By: #### L 500.2500 #### [facility] [address] [place], [address] Glucose [Mass/Vol] 699 mg/dL Invalid Interpretation Code 70-99 [facility] Comment on above: Result Comment: Crit ical Result(s) Called ACOLE at: 1949 by: SOUTH??Results read back by same. Performed By: #### L 500.2500 #### [facility] [address] [place], [address] Potassium [Moles/Vol] 4.8 mmol/L Normal 3.3-5.1 [facility] Comment on above: Performed By: #### L 500.2500 #### [facility] [address] [place], [address] Sodium [Moles/Vol] 121 mmol/L Low 133-145 [facility] Comment on above: Performed By: #### L 500.2500 #### [facility] [address] [place], [address] Urea nitrogen [Mass/Vol] 85 mg/dL High 4-19 [facility] Comment on above: Performed By: #### L 500.2500 #### [facility] [address] [place], [address] BUN/CRE 8.7 RATIO Low 10-20 [facility] Comment on above: Performed By: #### L 500.2500, L100.0100 #### [facility] [address] [place], [address] Calcium [Mass/Vol] 8.5 mg/dL Normal 7.6-11.0 [facility] Comment on above: Performed By: #### L 500.2500, L100.0100 #### [facility] [address] [place], [address] Chloride [Moles/Vol] 83 mmol/L Low 98-108 [facility] Comment on above: Performed By: #### L 500.2500, L100.0100 #### [facility] [address] [place], [address] CO2 [Moles/Vol] 17.6 mmol/L Low 21.0-32.0 [facility] Comment on above: Performed By: #### L 500.2500, L100.0100 #### [facility] [address] [place], [address] Creatinine [Mass/Vol] 10.30 mg/dL Invalid Interpretation Code 0.70-1.20 [facility] Comment on above: Result Comment: Crit ical Result(s) Called at: by:??Results read back by same. Critical Result(s) Called ACOLE at: 1646 by: SOUTH??Results read back by same. Performed By: #### L 500.2500, L100.0100 #### [facility] [address] [place], [address] ECRCL 8.57 ml/min Invalid Interpretation Code 50-250 [facility] Comment on above: Performed By: #### L 500.2500, L100.0100 #### [facility] [address] [place], [address] GAP 17 High 5-15 [facility] Comment on above: Performed By: #### L 500.2500, L100.0100 #### [facility] [address] [place], [address] GFR/1.73 sq M.predicted among non-blacks MDRD (S/P/Bld) [Vol rate/Area] 5 mL/min/{1.73_m2} Low >60 [facility] Comment on above: Result Comment: mL/m in/1.73m2 CKD-EPI Creatinine Equation (2020) Performed By: #### L 500.2500, L100.0100 #### [facility] [address] [place], [address] Glucose [Mass/Vol] 838 mg/dL Invalid Interpretation Code 70-99 [facility] Comment on above: Result Comment: Crit ical Result(s) Called ACOLE at:1646 by: BioTheryXORKMAN??Results read back by same. Performed By: #### L 500.2500, L100.0100 #### [facility] [address] [place], [address] Potassium [Moles/Vol] 5.7 mmol/L High 3.3-5.1 [facility] Comment on above: Performed By: #### L 500.2500, L100.0100 #### [facility] [address] [place], [address] Sodium [Moles/Vol] 118 mmol/L Invalid Interpretation Code 133-145 [facility] Comment on above: Result Comment: Crit ical Result(s) Called ACOLE at:1646 by: BWORKMAN??Results read back by same. Performed By: #### L 500.2500, L100.0100 #### [facility] [address] [place], [address] Urea nitrogen [Mass/Vol] 90 mg/dL High 4-19 [facility] Comment on above: Performed By: #### L 500.2500, L100.0100 #### [facility] [address] [place], [address] Basophil percentageOrdered B y: ED PROVIDER on 01-26-2025 Basophils/100 WBC (Bld) 0.2 % Normal 0-1 [facility] Comment on above: Performed By: #### L 500.2500 #### [facility] [address] [place], [address] Bedside Glucoseon 01-26-2025 FINGERSTICK GLU > 500 Invalid Interpretation Code 74-106 [facility] Comment on above: Result Comment: Dr Cholo shafer Followed MANAGEMENT OF PATIENT CARE PER NURSING PROTOCOL Performed By: #### L 500.2500, L100.0100 #### [facility] [address] [place], [address] FINGERSTICK GLU > 500 Invalid Interpretation Code 74-106 [facility] Comment on above: Result Comment: Dr Cholo shafer Followed MANAGEMENT OF PATIENT CARE PER NURSING PROTOCOL Performed By: #### L 501.080 #### [facility] [address] [place], [address] Beta-Hydroxbytyrateon 2024 BETA-HYDROXYBUT 0.7 mmol/L Normal 0.0-0.3 [facility] Comment on above: Performed By: #### L 500.2500 #### [facility] [address] [place], [address] Bilirubin Test strip Ql (U)O rdered By: Yony Solis on 01-26-2025 Bilirubin Ql (U) Negative Negative [facility] Bilirubin directOrdered By: Yony Solis on 01-26-2025 Bilirubin.direct [Mass/Vol] 0.30 mg/dL Normal 0.00-0.30 [facility] Comment on above: Order Comment: BMP D ONE AT 1600 Performed By: #### L 500.2500, L100.0100 #### [facility] [address] [place], [address] Bilirubin, totalOrdered By: Yony Solis on 01-26-2025 Bilirubin [Mass/Vol] 0.58 mg/dL Normal 0.00-1.30 [facility] Comment on above: Order Comment: BMP D ONE AT 1600 Performed By: #### L 500.2500, L100.0100 #### [facility] [address] [place], [address] CBC W/Diff, Automatedon 01-08 0-2024 Absolute Lymph 0.56 X10 3/uL Low 0.83-4.51 [facility] Comment on above: Performed By: #### L 500.2500 #### [facility] [address] [place], [address] Absolute Neut 8.1 X10 3/uL High 2.0-7.7 [facility] Comment on above: Performed By: #### L 500.2500 #### [facility] [address] [place], [address] IG% 0.500 Normal 0.0-0.9 [facility] Comment on above: Result Comment: IG% - Immature Granulocytes (promyelocytes, myelocytes and metamyelocytes) > 1% indicates that a LEFT SHIFT is Present. Performed By: #### L 500.2500 #### [facility] [address] [place], [address] Lymphocytes/100 WBC (Bld) 5.9 % Low 19-41 [facility] Comment on above: Performed By: #### L 500.2500 #### [facility] [address] [place], [address] Nucleated RBC (Bld) [#/Vol] 0 10*3/uL Normal 0-5 [facility] Comment on above: Performed By: #### L 500.2500 #### [facility] [address] [place], [address] RDW SD 38.0 fl Normal 35.1-43.9 [facility] Comment on above: Performed By: #### L 500.2500 #### [facility] [address] [place], [address] CO2 (BldV) [Moles/Vol]Ordere d By: Yony Solis on 01-26-2025 CO2 [Moles/Vol] 18 mmol/L Low 23-33 [facility] Chest PA and Lateralon 01-26 Chest PA and Lateral [facility] [address] [place] [address] Chest PA and Lateral MR#: [id number] Acct: [id number] Name: ITALO BURGOS Rep #: [id number] : 1970 M 54 From: Gen Jack MD PCP: Dr. Zaida Gaston MD Status: [facility] ER Study: Chest PA and Lateral Date of Exam: 01/26/25 Exam# [id number] Ordering Dr: Yony Solis DO PROCEDURE: CHEST PA AND LATERAL 01/26/2025 REASON FOR EXAM: COUGH TECHNIQUE: Frontal and lateral views of the chest. COMPARISON: None. FINDINGS: Hardware: None. Heart: Heart size is mildly enlarged. Mediastinum: The mediastinal contour is unremarkable. Lungs: The lungs are clear. Bones: The bones are unremarkable. RAD/Chest PA and Lateral IMPRESSION: NO ACUTE FINDINGS. Reading Location: [place] [address] CC: Dr. Zaida Gaston MD; Dr. Yony Solis DO Aircraft Sales Representative: Signed Normal [facility] Emergency Department Summary on 01-26-2025 Emergency Department Summary [facility] Medical Records Department [address] [place] [address] Emergency Department Summary 01/26/25 MR#: [id number] Acct: [id number] Name: ITALO BURGOS Rep #: [id number] : 1970 54 From: Yony Underwood PCP: Dr. Zaida Gaston MD Status:DEP ER Location: ED HPI History of Present Illness Chief Complaint: Hyperglycemia Informant: patient Narrative Narrative: Brought in by EMS from the nursing home I day history weakness dizziness. He is [...] frequency increasing thirst. He is followed by [facility] transplant, he states he is taking his medications. He has been in the nursing home for 4 months. Blood glucose 583 by EMS. [facility] Medical History Congestive heart failure (CHF) [...] (LHC) ( 06/26/11) Atherosclerotic heart disease of [place] coronary artery without angina pectoris Essential hypertension [...] Kidney disease (more content not included)... Normal [facility] Eosinophil percentageOrdered By: ED PROVIDER on 01-26-2025 Eosinophils/100 WBC (Bld) 0.0 % Normal 0-5 [facility] Comment on above: Performed By: #### L 500.2500 #### [facility] [address] [place], [address] Erythrocyte distribution wid th ratioOrdered By: ED PROVIDER on 01-26-2025 Erythrocyte distribution width (RBC) [Ratio] 11.7 % Normal 11.6-14.6 [facility] Comment on above: Performed By: #### L 500.2500 #### [facility] [address] [place], [address] Erythrocyte distribution wid th standard deviationOrdered By: ED PROVIDER on 01-26-2025 Erythrocyte distribution width (RBC) [Ratio] 38.0 fl 35.1-43.9 [facility] Glucoseon 01-26-2025 Glucose [Mass/Vol] 699 mg/dL Invalid Interpretation Code 70-99 [facility] Comment on above: Result Comment: Crit ical Result(s) Called ACOLE at: 1949 by: SOUTH??Results read back by same. Performed By: #### L 500.2500, L100.0100 #### [facility] [address] [place], [address] Hemoglobin measurementOrdere d By: ED PROVIDER on 01-26-2025 Hemoglobin (Bld) [Mass/Vol] 12.9 g/dL Low 13.0-16.5 [facility] Comment on above: Performed By: #### L 500.2500 #### [facility] [address] [place], [address] Immature granulocytes/100 WB C Auto (Bld)Ordered By: ED PROVIDER on 01-26-2025 Immature granulocytes/100 WBC (Bld) 0.500 % 0.0-0.9 [facility] Comment on above: IG% - Immature Granu locytes (promyelocytes, myelocytes and metamyelocytes) > 1% indicates that a LEFT SHIFT is Present. Ketones Test strip Ql (U)Ord ered By: Yony Solis on 01-26-2025 Ketones Ql (U) Negative Negative [facility] Lipase measurementOrdered By : Yony Solis on 01-26-2025 Lipase [Catalytic activity/Vol] 48 U/L Normal 13-75 [facility] Comment on above: Please note:LIPASE r evised [...] Performed By: #### L 500.2500, L100.0100 #### [facility] [address] [place], [address] Liver Profileon 01-26-2025 ALK PHOS 120 U/L Normal 40-129 [facility] Comment on above: Order Comment: BMP D ONE AT 1600 Performed By: #### L 500.2500, L100.0100 #### [facility] [address] [place], [address] T PROT 5.7 g/dL Low 5.9-8.4 [facility] Comment on above: Order Comment: BMP D ONE AT 1600 Performed By: #### L 500.2500, L100.0100 #### [facility] [address] [place], [address] Liver ProfileOrdered By: Brien Solis on 01-26-2025 AST [Catalytic activity/Vol] 9 U/L Normal <=37 [facility] Comment on above: Order Comment: BMP D ONE AT 1600 Performed By: #### L 500.2500, L100.0100 #### [facility] [address] [place], [address] MCV (mean corpuscular volume ) determinationOrdered By: ED PROVIDER on 01-26-2025 MCV (RBC) [Entitic vol] 89.6 fL Normal 80-94 [facility] Comment on above: Performed By: #### L 500.2500 #### [facility] [address] [place], [place], [address] Mean corpuscular hemoglobin (MCH) determinationOrdered By: ED PROVIDER on 01-26-2025 MCH (RBC) [Entitic mass] 31.2 pg Normal 27.0-32.0 [facility] Comment on above: Performed By: #### L 500.2500 #### [facility] [address] [place], [address] Mean corpuscular hemoglobin concentration (MCHC) determinationOrdered By: ED PROVIDER on 01-26-2025 MCHC (RBC) [Mass/Vol] 34.8 g/dL Normal 32-36 [facility] Comment on above: Performed By: #### L 500.2500 #### [facility] [address] [place], [place], [address] Mean platelet volume determi nationOrdered By: ED PROVIDER on 01-26-2025 Platelet mean volume (Bld) [Entitic vol] 9.9 fL Normal 6.2-12.0 [facility] Comment on above: Performed By: #### L 500.2500 #### [facility] [address] [place], [address] Microscopic analysis of urin e for red blood cells (RBC)Ordered By: Yony Solis on 01-26-2025 Microscopic analysis of urine for red blood cells (RBC) 5-10 SEEN /hpf 0-5 [facility] Monocyte percentageOrdered B y: ED PROVIDER on 01-26-2025 Monocytes/100 WBC (Bld) 8.2 % Normal 0-10 [facility] Comment on above: Performed By: #### L 500.2500 #### [facility] [address] [place], [address] Mucus LM Ql (Urine sed)Order ed By: Yony Solis on 01-26-2025 Mucus Ql (Urine sed) 0 SEEN /hpf [facility] Neutrophil percentageOrdered By: ED PROVIDER on 01-26-2025 Neutrophils/100 WBC (Bld) 85.2 % High 47-70 [facility] Comment on above: Performed By: #### L 500.2500 #### [facility] [address], [place], [address] Nitrite Test strip Ql (U)Ord ered By: Yony Solis on 01-26-2025 Nitrite Ql (U) Negative Negative [facility] No Panel InformationOrdered By: Yony Solis on 01-26-2025 Blood Gas Sample Site Not entered [facility] Blood Gas Specimen Type ANTH[facility]Y [facility] Oxygen Delivery Device Room Air [facility] ANTH[facility]Y [facility] Not entered [facility] Room Air [facility] 9 U/L <38 [facility] Nucleated red blood cell per centageOrdered By: ED PROVIDER on 01-26-2025 Nucleated RBC/100 WBC (Bld) [Ratio] 0 % 0-5 [facility] Platelet countOrdered By: ED PROVIDER on 01-26-2025 Platelets (Bld) [#/Vol] 168 10*3/uL Normal 150-450 [facility] Comment on above: Performed By: #### L 500.2500 #### [facility] [address] [facility] [place], [address] Protein Test strip Ql (U)Ord ered By: Yony Solis on 01-26-2025 Protein Ql (U) 30 mg/dl High Negative [facility] Serum globulin measurementOr dered By: Yony Solis on 01-26-2025 Globulin (S) [Mass/Vol] 2.7 g/dL Normal 2.2-4.2 [facility] Comment on above: Order Comment: BMP D ONE AT 1600 Performed By: #### L 500.2500, L100.0100 #### [facility] [address] [place], [place], [address] Serum or plasma alanine andrade otransferase (ALT) measurementOrdered By: Yony Solis on 01-26-2025 ALT [Catalytic activity/Vol] 12 U/L Normal <=46 [facility] Comment on above: Order Comment: BMP D ONE AT 1600 Performed By: #### L 500.2500, L100.0100 #### [facility] [address] [place], [address] Serum or plasma albumin regi urement (mass/volume)Ordered By: Yony Solis on 01-26-2025 Albumin [Mass/Vol] 3.0 g/dL Low 3.5-5.0 [facility] Comment on above: Order Comment: BMP D ONE AT 1600 Performed By: #### L 500.2499, L100.0100 #### [facility] [address] [place], [address] Serum or plasma alkaline cindi sphatase measurementOrdered By: Yony Solis on 01-26-2025 ALP [Catalytic activity/Vol] 120 U/L 40-129 [facility] Squamous epithelial cells de tection in urine sediment by light microscopyOrdered By: Yony Solis on 01-26-2025 Epithelial cells.squamous LM Ql (Urine sed) 0 SEEN /hpf 0-5 [facility] Total proteinOrdered By: Brien Solis on 01-26-2025 Protein [Mass/Vol] 5.7 g/dL Low 5.9-8.4 [facility] Urinalysis, Completeon 01-26 AMORPHOUS 1+ Normal [facility] Comment on above: Order Comment: CLEAN CATCH Performed By: #### L 500.2500, L100.0100 #### [facility] [address] [place], [address] RBC 5-10 SEEN Normal 0-5 [facility] Comment on above: Order Comment: CLEAN CATCH Performed By: #### L 500.2500, L100.0100 #### [facility] [address] [place], [address] WBC 10-25 SEEN Normal 0-5 [facility] Comment on above: Order Comment: CLEAN CATCH Performed By: #### L 500.2500, L100.0100 #### [facility] [address] [place], [address] BACTERIA 0 SEEN Normal None Seen [facility] Comment on above: Order Comment: CLEAN CATCH Performed By: #### L 500.2500, L100.0100 #### [facility] [address] [place], [address] EPI,SQUAMOUS 0 SEEN Normal 0-5 [facility] Comment on above: Order Comment: CLEAN CATCH Performed By: #### L 500.2500, L100.0100 #### [facility] [address] [place], [address] Mucus Ql (Urine sed) 0 SEEN Normal [facility] Comment on above: Order Comment: CLEAN CATCH Performed By: #### L 500.2500, L100.0100 #### [facility] [address] [place], [address] Urine clarityOrdered By: Brien Solis on 01-26-2025 Clarity (U) Sl. Cloudy Clear [facility] Urine color determinationOrd ered By: Yony Solis on 01-26-2025 Color (U) Yellow Yellow [facility] Urine cultureOrdered By: Brien Solis on 01-26-2025 Bacteria identified Cx Nom (U) Culture exhibits no growth. [facility] Urine glucose detectionOrder ed By: Yony Solis on 01-26-2025 Glucose Ql (U) 1000 mg/dl High Normal [facility] Urine leukocyte esterase det ection by dipstickOrdered By: Yony Solis on 01-26-2025 Leukocyte esterase Test strip Ql (U) 25 /ul High Negative [facility] Urine pHOrdered By: Yony Solis on 01-26-2025 pH (U) 6.0 [pH] 5.0 - 8.0 [facility] Urine sediment bacteria coun t by microscopy (number/high power field)Ordered By: Yony Solis on 01-26-2025 Bacteria LM.HPF (Urine sed) [#/Area] 0 /[HPF] None Seen [facility] Urine specific gravity measu rementOrdered By: Yony Solis on 01-26-2025 Specific gravity (U) [Rel density] 1.015 1.002-1.030 [facility] Urine urobilinogen measureme ntOrdered By: Yony Solis on 01-26-2025 Urobilinogen Ql (U) Normal mg/dl Normal [facility] Venous Blood Gason Blood Gas Type ANTHONY Normal [facility] Comment on above: Performed By: #### L 500.2500, L100.0100 #### [facility] [address] [place], [address] CO2 [Moles/Vol] 18 mmol/L Low 23-33 [facility] Comment on above: Performed By: #### L 500.2500, L100.0100 #### [facility] [address] [place], [address] HCO3 (Bld) [Moles/Vol] 17 mmol/L Low 22-26 [facility] Comment on above: Performed By: #### L 500.2500, L100.0100 #### [facility] [address] [place], [address] O2 Delivery Dev Room Air [facility] Comment on above: Performed By: #### L 500.2500, L100.0100 #### [facility] [address] [place], [address] SITE Not entered [facility] Comment on above: Performed By: #### L 500.2500, L100.0100 #### [facility] [address] [place], [address] VBG BE -10 mmol/L Low -1.0-3.5 [facility] Comment on above: Performed By: #### L 500.2500, L100.0100 #### [facility] [address] [place], [address] VBG pCO2 36.2 mmHg Low 41-51 [facility] Comment on above: Performed By: #### L 500.2500, L100.0100 #### [facility] [address] [place], [address] VBG pH 7.27 Low 7.32-7.42 [facility] Comment on above: Performed By: #### L 500.2500, L100.0100 #### [facility] [address] [place], [address] VBG PO2 35 mmHg Normal 25-40 [facility] Comment on above: Performed By: #### L 500.2500, L100.0100 #### [facility] [address] [place], [address] VBG SO2 61 Normal 50-70 [facility] Comment on above: Performed By: #### L 500.2500, L100.0100 #### [facility] [address] [place], [address] Venous blood base excess nicki surementOrdered By: Yony Solis on 01-26-2025 Base excess Calc (BldV) [Moles/Vol] -10 mmol/L Low -1.0-3.5 [facility] Venous blood bicarbonate nicki surementOrdered By: Yony Solis on 01-26-2025 HCO3 (Bld) [Moles/Vol] 17 mmol/L Low 22-26 [facility] Venous blood oxygen saturati on measurementOrdered By: Yony Solis on 01-26-2025 Oxygen saturation in Blood 61 % 50-70 [facility] Venous blood pH measurementO rdered By: Yony Solis on 01-26-2025 pH (BldV) 7.27 [pH] Low 7.32-7.42 [facility] Venous blood partial pressur e of carbon dioxide measurementOrdered By: Yony Solis on 01-26-2025 CO2 (BldV) [Partial pressure] 36.2 mm[Hg] Low 41-51 [facility] Venous blood partial pressur e of oxygen measurementOrdered By: Yony Solis on 01-26-2025 Oxygen (BldV) [Partial pressure] 35 mm[Hg] 25-40 [facility] White blood cell (WBC) count Ordered By: ED PROVIDER on 01-26-2025 WBC (Bld) [#/Vol] 9.5 10*3/uL Normal 4.4-11.0 [facility] Comment on above: Performed By: #### L 500.2500 #### [facility] [address] [place], [place], [address] White blood cell countOrdere d By: Yony Solis on 01-26-2025 White blood cell count 10-25 SEEN /hpf 0-5 [facility] 25(OH)D3 SerPl-mCncon 2024 25-hydroxyvitamin D3 [Mass/Vol] 16.7 ng/mL Low 31.0-80.0 [facility] Comment on above: Order Comment: Speci men Type: SWAB Ordering Facility: [facility] Address: [address] [place] [address] Result Comment: Clas sification of 25 [place] Vitamin D status: Deficiency/Insufficiency: < or = 30 ng/ml. Sufficiency/Optimal Levels: 31-80 ng/mL Toxicity: > 100 ng/mL. Test performed by chemiluminescent immunoassay. Performed By: #### S APCR #### [facility] CLIA [id number] [address] [place] [address] [place] ALBUMIN/CREATININE RATIO, UR INEon 01-01-2025 Albumin DL <= 20 mg/L (U) [Mass/Vol] 18.3 mg/L Normal [facility] Comment on above: Order Comment: Speci men Type: BLOOD SPECIMEN Ordering Facility: [facility] Address: [address] [place] [address] Performed By: #### 1 1253-2 #### [facility] CLIA [id number] [address] [place] [address] [place] Albumin/Creatinine (U) [Mass ratio] 42 mg/g High <30 [facility] Comment on above: Order Comment: Speci men Type: BLOOD SPECIMEN Ordering Facility: [facility] Address: [address] [place] [address] Result Comment: Adul t Male and Female Nephrotic Criteria: <30 mg/g is considered normal to mildly increased 30-300 mg/g is considered moderately increased >300 mg/g is considered severely increased KDIGO. (2013). KDIGO 2012 Clinical Practice Guideline for the Evaluation and Management of Chronic Kidney Disease. Official Journal of the International Society of Nephrology, 3(1), 1-150. Performed By: #### 1 1253-2 #### [facility] CLIA [id number] [address] [place] [address] [place] Creatinine (U) [Mass/Vol] 43.4 mg/dL Normal 20.0-300.0 [facility] Comment on above: Order Comment: Speci men Type: BLOOD SPECIMEN Ordering Facility: [facility] Address: [address] [place] [address] Performed By: #### 1 1253-2 #### [facility] CLIA [id number] [address] [place] [address] [place] CBC W Auto Differential pane l (Bld)on 01-01-2025 Basophils (Bld) [#/Vol] 10*3/uL Normal <0.[address] [facility] Comment on above: Order Comment: Speci men Type: SWAB Ordering Facility: [facility] Address: [address] [place] [address] Performed By: #### S APCR #### [facility] CLIA [id number] [address] [place] [address] [place] Basophils/100 WBC (Bld) 0.3 % Normal [facility] Comment on above: Order Comment: Speci men Type: SWAB Ordering Facility: [facility] Address: [address] [place] [address] Performed By: #### S APCR #### [facility] CLIA [id number] [id number] [address] [place] Differential cell count method Nom (Bld) Auto Normal [facility] Comment on above: Order Comment: Speci men Type: SWAB Ordering Facility: [facility] Address: [address] [place] [address] Performed By: #### S APCR #### [facility] CLIA [id number] [address] [place] [address] [place] Eosinophils (Bld) [#/Vol] 0.04 10*3/uL Normal <0.46 [facility] Comment on above: Order Comment: Speci men Type: SWAB Ordering Facility: [facility] Address: [address] [place] [address] Performed By: #### S APCR #### [facility] CLIA [id number] [address] [place] [address] [place] Eosinophils/100 WBC (Bld) 0.7 % Normal [facility] Comment on above: Order Comment: Speci men Type: SWAB Ordering Facility: [facility] Address: [address] [place] [address] Performed By: #### S APCR #### [facility] CLIA [id number] [address] [place] [address] [place] Erythrocyte distribution width (RBC) [Ratio] 11.5 % Normal 11.5-15.0 [facility] Comment on above: Order Comment: Speci men Type: SWAB Ordering Facility: [facility] Address: [address] [place] [address] Performed By: #### S APCR #### [facility] CLIA [id number] [address] [place] [address] [place] Hematocrit (Bld) [Volume fraction] 46.6 % Normal 39.0-51.0 [facility] Comment on above: Order Comment: Speci men Type: SWAB Ordering Facility: [facility] Address: [address] [place] [address] Performed By: #### S APCR #### [facility] CLIA [id number] [address] [place] [address] [place] Hemoglobin (Bld) [Mass/Vol] 16.1 g/dL Normal 13.0-17.0 [facility] Comment on above: Order Comment: Speci men Type: SWAB Ordering Facility: [facility] Address: [address] [place] [address] Performed By: #### S APCR #### [facility] CLIA [id number] [address] [place] [address] [place] Immature granulocytes (Bld) [#/Vol] 0.03 10*3/uL Normal <0.10 [facility] Comment on above: Order Comment: Speci men Type: SWAB Ordering Facility: [facility] Address: [address] [place] [address] Performed By: #### S APCR #### [facility] CLIA [id number] [address] [place] [address] [place] Immature granulocytes/100 WBC (Bld) 0.5 % Normal [facility] Comment on above: Order Comment: Speci men Type: SWAB Ordering Facility: [facility] Address: [address] [place] [address] Performed By: #### S APCR #### [facility] CLIA [id number] [address] [place] [address] [place] Lymphocytes (Bld) [#/Vol] 1.38 10*3/uL Normal 1.00-4.00 [facility] Comment on above: Order Comment: Speci men Type: SWAB Ordering Facility: [facility] Address: [address] [place] [address] Performed By: #### S APCR #### [facility] CLIA [id number] [address] [place] [address] [place] Lymphocytes/100 WBC (Bld) 23.0 % Normal [facility] Comment on above: Order Comment: Speci men Type: SWAB Ordering Facility: [facility] Address: [address] [place] [address] Performed By: #### S APCR #### [facility] CLIA [id number] [address] [place] [address] [place] MCH (RBC) [Entitic mass] 31.0 pg Normal 26.0-34.0 [facility] Comment on above: Order Comment: Speci men Type: SWAB Ordering Facility: [facility] Address: [address] [place] [address] Performed By: #### S APCR #### [facility] CLIA [id number] [address] [place] [address] [place] MCHC (RBC) [Mass/Vol] 34.5 g/dL Normal 30.5-36.0 [facility] Comment on above: Order Comment: Speci men Type: SWAB Ordering Facility: [facility] Address: [address] [place] [address] Performed By: #### S APCR #### [facility] CLIA [id number] [address] [place] [address] [place] MCV (RBC) [Entitic vol] 89.6 fL Normal 80.0-100.[address] [facility] Comment on above: Order Comment: Speci men Type: SWAB Ordering Facility: [facility] Address: [address] [place] [address] Performed By: #### S APCR #### [facility] CLIA [id number] [address] [place] [address] [place] Monocytes (Bld) [#/Vol] 0.46 10*3/uL Normal <0.87 [facility] Comment on above: Order Comment: Speci men Type: SWAB Ordering Facility: [facility] Address: [address] [place] [address] Performed By: #### S APCR #### [facility] CLIA [id number] [address] [place] [address] [place] Monocytes/100 WBC (Bld) 7.7 % Normal [facility] Comment on above: Order Comment: Speci men Type: SWAB Ordering Facility: [facility] Address: [address] [place] [address] Performed By: #### S APCR #### [facility] CLIA [id number] [address] [place] [address] [place] Neutrophils (Bld) [#/Vol] 4.06 10*3/uL Normal 1.45-7.50 [facility] Comment on above: Order Comment: Speci men Type: SWAB Ordering Facility: [facility] Address: [address] [place] [address] Performed By: #### S APCR #### [facility] CLIA [id number] [address] [place] [address] [place] Neutrophils/100 WBC (Bld) 67.8 % Normal [facility] Comment on above: Order Comment: Speci men Type: SWAB Ordering Facility: [facility] Address: [address] [place] [address] Performed By: #### S APCR #### [facility] CLIA [id number] [address] [place] [address] [place] Nucleated RBC (Bld) [#/Vol] 10*3/uL Normal <0.01 [facility] Comment on above: Order Comment: Speci men Type: SWAB Ordering Facility: [facility] Address: [address] [place] [address] Performed By: #### S APCR #### [facility] CLIA [id number] [address] [place] [address] [place] Nucleated RBC/100 WBC (Bld) [Ratio] 0.0 /100 WBC Normal [facility] Comment on above: Order Comment: Speci men Type: SWAB Ordering Facility: [facility] Address: [address] [place] [address] Performed By: #### S APCR #### [facility] CLIA [id number] [address] [place] [address] [place] Platelet mean volume (Bld) [Entitic vol] 10.3 fL Normal 9.0-12.7 [facility] Comment on above: Order Comment: Speci men Type: SWAB Ordering Facility: [facility] Address: [address] [place] [address] Performed By: #### S APCR #### [facility] CLIA [id number] [address] [place] [address] [place] Platelets (Bld) [#/Vol] 168 10*3/uL Normal 150-400 [facility] Comment on above: Order Comment: Speci men Type: SWAB Ordering Facility: [facility] Address: [address] [place] [address] Performed By: #### S APCR #### [facility] CLIA [id number] [address] [place] [address] [place] RBC (Bld) [#/Vol] 5.20 10*6/uL Normal 4.20-6.00 [facility] Comment on above: Order Comment: Speci men Type: SWAB Ordering Facility: [facility] Address: [address] [place] [address] Performed By: #### S APCR #### [facility] CLIA [id number] [address] [place] [address] [place] WBC (Bld) [#/Vol] 5.99 10*3/uL Normal 3.70-11.00 [facility] Comment on above: Order Comment: Speci men Type: SWAB Ordering Facility: [facility] Address: [address] [place] [address] Performed By: #### S APCR #### [facility] CLIA [id number] [address] [place] [address] [place] Comprehensive metabolic 2000 panelon 01-01-2025 Albumin [Mass/Vol] 4.0 g/dL Normal 3.9-4.9 [facility] Comment on above: Order Comment: Speci men Type: BLOOD SPECIMEN Ordering Facility: [facility] Address: [address] [place] [address] Performed By: #### 1 1253-2 #### [facility] CLIA [id number] [address] [place] [address] [place] ALP [Catalytic activity/Vol] 145 U/L High 38-113 [facility] Comment on above: Order Comment: Speci men Type: BLOOD SPECIMEN Ordering Facility: [facility] Address: [address] [place] [address] Performed By: #### 1 1253-2 #### [facility] CLIA [id number] [address] [place] [address] [place] ALT [Catalytic activity/Vol] 34 U/L Normal 10-54 [facility] Comment on above: Order Comment: Speci men Type: BLOOD SPECIMEN Ordering Facility: [facility] Address: [address] [place] [address] Performed By: #### 1 1253-2 #### [facility] CLIA [id number] [address] [place] [address] [place] Anion gap [Moles/Vol] 14 mmol/L Normal 8-15 [facility] Comment on above: Order Comment: Speci men Type: BLOOD SPECIMEN Ordering Facility: [facility] Address: [address] [place] [address] Performed By: #### 1 1253-2 #### [facility] CLIA [id number] [address] [place] [address] [place] AST [Catalytic activity/Vol] 20 U/L Normal 14-40 [facility] Comment on above: Order Comment: Speci men Type: BLOOD SPECIMEN Ordering Facility: [facility] Address: [address] [place] [address] Performed By: #### 1 1253-2 #### [facility] CLIA [id number] [address] [place], [place] [address] [place] Bilirubin [Mass/Vol] 0.5 mg/dL Normal 0.2-1.3 [facility] Comment on above: Order Comment: Speci men Type: BLOOD SPECIMEN Ordering Facility: [facility] Address: [address] [place] [address] Performed By: #### 1 1253-2 #### [facility] CLIA [id number] [address] [place] [address] [place] Calcium [Mass/Vol] 9.6 mg/dL Normal 8.5-10.2 [facility] Comment on above: Order Comment: Speci men Type: BLOOD SPECIMEN Ordering Facility: [facility] Address: [address] [place] [address] Performed By: #### 1 1253-2 #### [facility] CLIA [id number] [address] [place] [address] [place] Chloride [Moles/Vol] 96 mmol/L Low 98-107 [facility] Comment on above: Order Comment: Speci men Type: BLOOD SPECIMEN Ordering Facility: [facility] Address: [address] [place] [address] Performed By: #### 1 1253-2 #### [facility] CLIA [id number] [address] [place], [place] [address] [place] CO2 [Moles/Vol] 21 mmol/L Low 22-30 [facility] Comment on above: Order Comment: Speci men Type: BLOOD SPECIMEN Ordering Facility: [facility] Address: [address] [place], [place] [address] Performed By: #### 1 1253-2 #### [facility] CLIA [id number] [address] [place], [place] [address] [place] Creatinine [Mass/Vol] 1.59 mg/dL High 0.73-1.22 [facility] Comment on above: Order Comment: Gabriel martin Type: BLOOD SPECIMEN Ordering Facility: [facility] Address: [address] [place] [address] Performed By: #### 1 1253-2 #### [facility] CLIA [id number] [address] [place] [address] [place] Creatinine and Glomerular filtration rate.predicted panel (S/P/Bld) 51 mL/min/1.73m??? Low >=60 [facility] Comment on above: Order Comment: Gabriel martin Type: BLOOD SPECIMEN Ordering Facility: [facility] Address: [address] [place] [address] Result Comment: Candace mated Glomerular Filtration Rate [...] GFR. Performed By: #### 1 1253-2 #### [facility] CLIA [id number] [address] [place] [address] [place] Glucose [Mass/Vol] 488 mg/dL High 74-99 [facility] Comment on above: Order Comment: Gabriel martin Type: BLOOD SPECIMEN Ordering Facility: [facility] Address: [address] [place] [address] Result Comment: The [place] Diabetes Association (ADA) provides guidance for cutoff [...] Standards of Medical Care in Diabetes 2016, [place] [employer] Association. Diabetes Care. 2016.39(Suppl 1). Performed By: #### 1 1253-2 #### [facility] CLIA [id number] [address] [place] [address] [place] Potassium [Moles/Vol] 5.0 mmol/L Normal 3.7-5.1 [facility] Comment on above: Order Comment: Speci men Type: BLOOD SPECIMEN Ordering Facility: [facility] Address: [address] [place] [address] Performed By: #### 1 1253-2 #### [facility] CLIA [id number] [address] [place] [address] [place] Protein [Mass/Vol] 6.5 g/dL Normal 6.3-8.0 [facility] Comment on above: Order Comment: Speci men Type: BLOOD SPECIMEN Ordering Facility: [facility] Address: [address] [place] [address] Performed By: #### 1 1253-2 #### [facility] CLIA [id number] [address] [place] [address] [place] Sodium [Moles/Vol] 131 mmol/L Low 136-144 [facility] Comment on above: Order Comment: Speci men Type: BLOOD SPECIMEN Ordering Facility: [facility] Address: [address] [place] [address] Performed By: #### 1 1253-2 #### [facility] CLIA [id number] [address] [place] [address] [place] Urea nitrogen [Mass/Vol] 25 mg/dL High 9-24 [facility] Comment on above: Order Comment: Speci men Type: BLOOD SPECIMEN Ordering Facility: [facility] Address: [address] [place] [address] Performed By: #### 1 1253-2 #### [facility] CLIA [id number] [address] [place] [address] [place] HbA1c (Bld)on 01-01-2025 Average glucose Estimated from glycated hemoglobin (Bld) [Mass/Vol] 260 mg/dL Normal [facility] Comment on above: Order Comment: Gabriel martin Type: BLOOD SPECIMEN Ordering Facility: [facility] Address: [address] [place] [address] Result Comment: eAG: (Estimated average glucose) is a calculated value from HgbA1c and is underwriting account representative of the average blood glucose level in the last 2-3 month period. Performed By: #### 1 1253-2 #### [facility] CLIA [id number] [address] [place] [address] [place] [facility] HbA1c (Bld) [Mass fraction] 10.7 % High 4.3-5.6 [facility] Comment on above: Order Comment: Gabriel martin Type: BLOOD SPECIMEN Ordering Facility: [facility] Address: [address] [place] [address] Result Comment: [place] Diabetes Association guidelines indicate that patients with HgbA1c in the range 5.7-6.4% are at increased risk for development of diabetes, and intervention by lifestyle modification may be beneficial. HgbA1c greater or equal to 6.5% is considered diagnostic of diabetes. Performed By: #### 1 1253-2 #### [facility] CLIA [id number] [address] [place] [address] [place] Lipid 1996 panelon 5 Cholesterol [Mass/Vol] 202 mg/dL High <200 [facility] Comment on above: Order Comment: Gabriel martin Type: BLOOD SPECIMEN Ordering Facility: [facility] Address: [address] [place] [address] Result Comment: <200 mg/dL, Desirable 200-239 mg/dL, Borderline high >239 mg/dL, High Performed By: #### 1 1253-2 #### [facility] CLIA [id number] [address] [place] [address] [place] Cholesterol in HDL [Mass/Vol] 48 mg/dL Normal >39 [facility] Comment on above: Order Comment: Gabriel martin Type: BLOOD SPECIMEN Ordering Facility: [facility] Address: [address] [place] [address] Result Comment: 40-5 9 mg/dL, Acceptable >59 mg/dL, High: Negative risk factor for coronary heart disease <40 mg/dL, Low: Positive risk factor for coronary heart disease Performed By: #### 1 1253-2 #### [facility] CLIA [id number] [address] [place] [address] [place] Cholesterol in LDL [Mass/Vol] 120 mg/dL High <100 [facility] Comment on above: Order Comment: Gabriel martin Type: BLOOD SPECIMEN Ordering Facility: [facility] Address: [address] [place] [address] Result Comment: <100 mg/dL, Optimal 100-129 mg/dL, Near optimal/above optimal 130-159 mg/dL, Borderline high 160-189 mg/dL, High >189 mg/dL, Very high Secondary prevention optimal LDL Cholesterol levels are recommended to be <70 mg/dL LDL cholesterol is calculated using the Barnard-NIH equation. Performed By: #### 1 1253-2 #### [facility] [place] [id number] [address] [place] [address] [place] [facility] Cholesterol in LDL/Cholesterol in HDL [Mass ratio] 2.50 {ratio} Normal <2.54 [facility] Comment on above: Order Comment: Gabriel mario Type: BLOOD SPECIMEN Ordering Facility: [facility] Address: [address] [place] [address] Result Comment: Claudine lopez: 1. National Cholesterol Education Program ATP III Guideline At-A-Glance Quick Desk Reference: National Heart, Lung, and Blood [place]. National Institutes of Health. 2001: NIH Publication No. 01-3305. 2. An International Atherosclerosis Society position paper: global recommendations for the management of dyslipidemia: executive summary, Atherosclerosis. 2014: 232(2):410-413. Performed By: #### 1 1253-2 #### [facility] CLIA [id number] [address] [place] [address] [place] Cholesterol in VLDL [Mass/Vol] 33 mg/dL High <30 [facility] Comment on above: Order Comment: Speci men Type: BLOOD SPECIMEN Ordering Facility: [facility] Address: [address] [place] [address] Performed By: #### 1 1253-2 #### [facility] CLIA [id number] [address] [place] [address] [place] Cholesterol non HDL [Mass/Vol] 154 mg/dL High <130 [facility] Comment on above: Order Comment: Speci men Type: BLOOD SPECIMEN Ordering Facility: [facility] Address: [address] [place] [address] Result Comment: <130 mg/dL, Optimal 130-159 mg/dL, Near optimal/above optimal 160-189 mg/dL, Borderline high 190-219 mg/dL, High >219 mg/dL, Very high Secondary prevention optimal non HDL Cholesterol levels are recommended to be <100 mg/dL Performed By: #### 1 1253-2 #### [facility] CLIA [id number] [address] [place] [address] [place] Cholesterol.total/Choles terol in HDL [Mass ratio] 4.21 {ratio} Normal <5.10 [facility] Comment on above: Order Comment: Speci men Type: BLOOD SPECIMEN Ordering Facility: [facility] Address: [address] [place] [address] Performed By: #### 1 1253-2 #### [facility] CLIA [id number] [address] [place] [address] [place] FASTING TIME 14 hrs Normal [facility] Comment on above: Order Comment: Speci men Type: BLOOD SPECIMEN Ordering Facility: [facility] Address: [address] [place] [address] Performed By: #### 1 1253-2 #### [facility] CLIA [id number] [address] [place] [address] [place] Triglyceride [Mass/Vol] 192 mg/dL High <[address] [facility] Comment on above: Order Comment: Speci men Type: BLOOD SPECIMEN Ordering Facility: [facility] Address: [address] [place] [address] Result Comment: <150 mg/dL, Normal 150-199 mg/dL, Borderline high 200-499 mg/dL, High >499 mg/dL, Very high Performed By: #### 1 1253-2 #### [facility] CLIA [id number] [address] [place] [address] [place] TSH SerPl-aCncon 01-01-2025 TSH Qn 0.779 m[IU]/L Normal 0.270-4.200 [facility] Comment on above: Order Comment: Speci men Type: BLOOD SPECIMEN Ordering Facility: [facility] Address: [address] [place] [address] Performed By: #### 1 1253-2 #### [facility] [place] [id number] [address] [place] [address] [place] CNOVon 12-30-2024 CNOV Office Visit (INTMWS ) ITALO BURGOS ([id number]) 1970 M Date Time Provider Department 12/30/24 4:20 PM DELIA KAUFMAN During your visit today, we recorded the following information about you: Pulse Respiration Blood pressure Weight 94/minute 16/minute 118/68 79.8 kg 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 APRN.SENIOR NET SOFTWARE DEVELOPER 12/30/2024 5:44 PM Signed CC: Patient presents [...] [facility] and has to be seen to be [...] over a year ago. Needs to call [facility] to schedule. 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 Blood-Glucose Sensor (DEXCOM [...] MUST g (more content not included)... Normal [facility] Urine Cultureon 11-21-2024 URC Below infection leve l. Mixed Gram Positive Organisms Odum Count 1000-10,000 MIXC Mixed contaminants. Submit a new specimen if indicated. Normal [facility] Comment on above: Performed By: #### L 501.080 #### [facility] [address] [place], [address] 12 Lead EKGon 11-19-2024 12 Lead EKG [facility] [address] [place] [address] 12 Lead EKG 11/19/24 1417 MR#: [id number] Acct: [id number] Name: ITALO BURGOS Rep #: [id number] : 1970 53 From: Symone Albarado MD [...] ECG Confirmed by NARGIS NORTON, NICOLLE ([id number]), video effects editor JEANETTE MARQUEZ ([id number]) on 11/23/2024 10:57:26 AM Referred By: Yony Solis Confirmed By: NICOLLE ALBARADO MD 11/23/24 1057 Date Symone Albarado MD CC: Dr. Zaida Gaston MD; Dr. Yony Solis, DO Signed Normal [facility] Absolute lymphocyte countOrd ered By: Yony Solis on 11-19-2024 Lymphocytes Auto (Unsp spec) [#/Vol] 1.05 10*3/uL 0.83-4.51 [facility] Absolute neutrophil countOrd ered By: Yony Solis on 11-19-2024 Neutrophils (Bld) [#/Vol] 6.9 10*3/uL 2.0-7.7 [facility] Anion gap in Serum or Plasma Ordered By: Yony Solis on 11-19-2024 Anion gap [Moles/Vol] 16 mmol/L High 5-15 [facility] Automated lymphocyte count a s percentage of total leukocytesOrdered By: Yony Solis on 11-19-2024 Lymphocytes/100 WBC Auto (Unsp spec) 11.9 % Low 19-41 [facility] BUN/creatinine ratioOrdered By: Yony Solis on 11-19-2024 Urea nitrogen/Creatinine [Mass ratio] 15.5 mg/mg 10-20 [facility] Basic Metabolic Profile (BMP )on 11-19-2024 BUN/CRE 15.5 RATIO Normal 10-20 [facility] Comment on above: Performed By: #### L 500.2500 #### [facility] Laboratory [address] [address] Calcium [Mass/Vol] 10.1 mg/dL Normal 7.6-11.0 [facility] Comment on above: Performed By: #### L 500.2500 #### [facility] [address] [place], [address] Chloride [Moles/Vol] 104 mmol/L Normal 98-108 [facility] Comment on above: Performed By: #### L 500.2500 #### [facility] [address] [place], [address] CO2 [Moles/Vol] 19.3 mmol/L Low 21.0-32.0 [facility] Comment on above: Performed By: #### L 500.2500 #### [facility] [address] [place], [address] Creatinine [Mass/Vol] 2.11 mg/dL High 0.70-1.20 [facility] Comment on above: Performed By: #### L 500.2500 #### [facility] [address] [place], [address] ECRCL 42.01 ml/min Low 50-250 [facility] Comment on above: Performed By: #### L 500.2500 #### [facility] [address] [place], [address] GAP 16 High 5-15 [facility] Comment on above: Performed By: #### L 500.2500 #### [facility] [address] [place], [address] GFR/1.73 sq M.predicted among non-blacks MDRD (S/P/Bld) [Vol rate/Area] 36 mL/min/{1.73_m2} Low >60 [facility] Comment on above: Result Comment: mL/m in/1.73m2 CKD-EPI Creatinine Equation (2020) Performed By: #### L 500.2500 #### [facility] [address] [place], [address] Glucose [Mass/Vol] 279 mg/dL High 70-99 [facility] Comment on above: Performed By: #### L 500.2500 #### [facility] [address] [place], [address] Potassium [Moles/Vol] 4.9 mmol/L Normal 3.3-5.1 [facility] Comment on above: Performed By: #### L 500.2500 #### [facility] [address] [place], [address] Sodium [Moles/Vol] 139 mmol/L Normal 133-145 [facility] Comment on above: Performed By: #### L 500.2500 #### [facility] [address] [place], [address] Urea nitrogen [Mass/Vol] 33 mg/dL High 4-19 [facility] Comment on above: Performed By: #### L 500.2500 #### [facility] [address] [place], [address] Basophil percentageOrdered B y: Yony Solis on 11-19-2024 Basophils/100 WBC (Bld) 0.5 % 0-1 [facility] Bilirubin Test strip Ql (U)O rdered By: Yony Solis on 11-19-2024 Bilirubin Ql (U) Negative Negative [facility] CBC W/Diff, Automatedon 11-07-2024 Absolute Lymph 1.05 X10 3/uL Normal 0.83-4.51 [facility] Comment on above: Performed By: #### L 500.2500 #### [facility] [address] [place], [address] Absolute Neut 6.9 X10 3/uL Normal 2.0-7.7 [facility] Comment on above: Performed By: #### L 500.2500 #### [facility] [address] [place], [address] Basophils/100 WBC (Bld) 0.5 % Normal 0-1 [facility] Comment on above: Performed By: #### L 500.2500 #### [facility] [address] [place], [address] Eosinophils/100 WBC (Bld) 0.2 % Normal 0-5 [facility] Comment on above: Performed By: #### L 500.2500 #### [facility] [address] [place], [address] Erythrocyte distribution width (RBC) [Ratio] 12.0 % Normal 11.6-14.6 [facility] Comment on above: Performed By: #### L 500.2500 #### [facility] [address] [place], [address] Hematocrit (Bld) [Volume fraction] 51.2 % Normal 40-54 [facility] Comment on above: Performed By: #### L 500.2500 #### [facility] [address] [place], [address] Hemoglobin (Bld) [Mass/Vol] 17.7 g/dL High 13.0-16.5 [facility] Comment on above: Performed By: #### L 500.2500 #### [facility] [address] [place], [address] IG% 0.300 Normal 0.0-0.9 [facility] Comment on above: Result Comment: IG% - Immature Granulocytes (promyelocytes, myelocytes and metamyelocytes) > 1% indicates that a LEFT SHIFT is Present. Performed By: #### L 500.2500 #### [facility] [address] [place], [address] Lymphocytes/100 WBC (Bld) 11.9 % Low 19-41 [facility] Comment on above: Performed By: #### L 500.2500 #### [facility] [address] [place], [address] MCH (RBC) [Entitic mass] 31.3 pg Normal 27.0-32.0 [facility] Comment on above: Performed By: #### L 500.2500 #### [facility] [address] [place], [address] MCHC (RBC) [Mass/Vol] 34.6 g/dL Normal 32-36 [facility] Comment on above: Performed By: #### L 500.2500 #### [facility] [address] [place], [address] MCV (RBC) [Entitic vol] 90.6 fL Normal 80-94 [facility] Comment on above: Performed By: #### L 500.2500 #### [facility] [address] [place], [address] Monocytes/100 WBC (Bld) 9.2 % Normal 0-10 [facility] Comment on above: Performed By: #### L 500.2500 #### [facility] [address] [place], [address] Neutrophils/100 WBC (Bld) 77.9 % High 47-70 [facility] Comment on above: Performed By: #### L 500.2500 #### [facility] [address] [place], [address] Nucleated RBC (Bld) [#/Vol] 0 10*3/uL Normal 0-5 [facility] Comment on above: Performed By: #### L 500.2500 #### [facility] [address] [place], [address] Platelet mean volume (Bld) [Entitic vol] 9.9 fL Normal 6.2-12.0 [facility] Comment on above: Performed By: #### L 500.2500 #### [facility] [address] [place], [address] Platelets (Bld) [#/Vol] 231 10*3/uL Normal 150-450 [facility] Comment on above: Performed By: #### L 500.2500 #### [facility] [address] [place], [address] RBC (Bld) [#/Vol] 5.65 10*6/uL Normal 4.6-6.2 [facility] Comment on above: Performed By: #### L 500.2500 #### [facility] [address] [place], [address] RDW SD 39.8 fl Normal 35.1-43.9 [facility] Comment on above: Performed By: #### L 500.2500 #### [facility] [address] [place], [place], [address] WBC (Bld) [#/Vol] 8.8 10*3/uL Normal 4.4-11.0 [facility] Comment on above: Performed By: #### L 500.2500 #### [facility] [address] [place], [address] Carbon dioxide, total [Moles /volume] in Central venous bloodOrdered By: Yony Solis on 11-19-2024 CO2 [Moles/Vol] 19.3 mmol/L Low 21.0-32.0 [facility] Chloride assayOrdered By: Aldair Solis on 11-19-2024 Chloride [Moles/Vol] 104 mmol/L 98-108 [facility] Emergency Department Summary on 11-19-2024 Emergency Department Summary [facility] Medical Records Department [address] [place] [address] Emergency Department Summary 11/19/24 MR#: [id number] Acct: [id number] Name: ITALO BURGOS Rep #: [id number] : 1970 53 From: Yony Underwood PCP: [...] ago on immunosuppressants. He is followed by [facility]. 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 Normal [facility] Eosinophil percentageOrdered By: Yony Solis on 11-19-2024 Eosinophils/100 WBC (Bld) 0.2 % 0-5 [facility] Epithelial cells.squamous LM Ql (Urine sed)Ordered By: Yony Solis on 11-19-2024 Epithelial cells.squamous LM.HPF (Urine sed) [#/Area] 0 /[HPF] 0-5 [facility] Erythrocyte distribution wid th ratioOrdered By: Yony Solis on 11-19-2024 Erythrocyte distribution width (RBC) [Ratio] 12.0 % 11.6-14.6 [facility] Erythrocyte distribution wid th standard deviationOrdered By: Yony Solis on 11-19-2024 Erythrocyte distribution width (RBC) [Entitic vol] 39.8 fL 35.1-43.9 [facility] Erythrocyte distribution width (RBC) [Ratio] 39.8 fl 35.1-43.9 [facility] Estimation of creatinine minnie aranceOrdered By: Yony Solis on 11-19-2024 Estimated Creatinine Clearance Calc 42.01 ml/min Low 50-250 [facility] GFR/1.73 sq M.predicted pete g non-blacks MDRD (S/P/Bld) [Vol rate/Area]Ordered By: Yony Solis on 11-19-2024 Estimated GFR (MDRD) Non-Af Amer 36 Low >60 [facility] Comment on above: mL/min/1.73m2 CKD-EP I Creatinine Equation (2020) Glomerular filtration rate ( GFR) estimation/1.73 sq m using serum, plasma, or whole bOrdered By: Yony Solis on 11-19-2024 GFR/1.73 sq M.predicted among non-blacks MDRD (S/P/Bld) [Vol rate/Area] 36 mL/min/{1.73_m2} Low >60 [facility] Comment on above: mL/min/1.73m2 CKD-EP I Creatinine Equation (2020) Glucose Ql (U)Ordered By: Aldair Solis on 11-19-2024 Glucose (U) [Mass/Vol] 1000 mg/dL High Normal [facility] Hematocrit Auto (Bld) [Volum e fraction]Ordered By: Yony Solis on 11-19-2024 Hematocrit (Bld) [Volume fraction] 51.2 % 40-54 [facility] Hemoglobin measurementOrdere d By: Yony Slois on 11-19-2024 Hemoglobin (Bld) [Mass/Vol] 17.7 g/dL High 13.0-16.5 [facility] Hyaline casts LM.LPF (Urine sed) [#/Area]Ordered By: Yony Solis on 11-19-2024 Hyaline casts (Urine sed) [#/Area] 0 /[LPF] 0-5 [facility] Hyaline casts LM Ql (Urine sed) 0-5 SEEN /lpf 0-5 [facility] Immature granulocytes/100 WB C Auto (Bld)Ordered By: Yony Solis on 11-19-2024 Immature granulocytes/100 WBC (Bld) 0.300 % 0.0-0.9 [facility] Comment on above: IG% - Immature Granu locytes (promyelocytes, myelocytes and metamyelocytes) > 1% indicates that a LEFT SHIFT is Present. Ketones Test strip Ql (U)Ord ered By: Yony Solis on 11-19-2024 Ketones Ql (U) Negative Negative [facility] Lymphocytes Auto (Unsp spec) [#/Vol]Ordered By: Yony Solis on 11-19-2024 Lymphocytes (Bld) [#/Vol] 1.05 10*3/uL 0.83-4.51 [facility] Lymphocytes/100 WBC Auto (Un sp spec)Ordered By: Yony Solis on 11-19-2024 Lymphocytes/100 WBC (Bld) 11.9 % Low 19-41 [facility] MCV (mean corpuscular volume ) determinationOrdered By: Yony Solis on 11-19-2024 MCV (RBC) [Entitic vol] 90.6 fL 80-94 [facility] Mean corpuscular hemoglobin (MCH) determinationOrdered By: Yony Solis on 11-19-2024 MCH (RBC) [Entitic mass] 31.3 pg 27.0-32.0 [facility] Mean corpuscular hemoglobin concentration (MCHC) determinationOrdered By: Yony Solis on 11-19-2024 MCHC (RBC) [Mass/Vol] 34.6 g/dL 32-36 [facility] Mean platelet volume determi nationOrdered By: Yony Solis on 11-19-2024 Platelet mean volume (Bld) [Entitic vol] 9.9 fL 6.2-12.0 [facility] Microscopic analysis of urin e for red blood cells (RBC)Ordered By: Yony Solis on 11-19-2024 Microscopic analysis of urine for red blood cells (RBC) 10-25 SEEN /hpf 0-5 [facility] Urine RBC 10-25 SEEN /hpf 0-5 [facility] Monocyte percentageOrdered B y: Yony Solis on 11-19-2024 Monocytes/100 WBC (Bld) 9.2 % 0-10 [facility] Mucus LM Ql (Urine sed)Order ed By: Yony Solis on 11-19-2024 Mucus Ql (Urine sed) 0 SEEN /hpf [facility] Neutrophil percentageOrdered By: Yony Solis on 11-19-2024 Neutrophils/100 WBC (Bld) 77.9 % High 47-70 [facility] Nitrite Test strip Ql (U)Ord ered By: Yony Solis on 11-19-2024 Nitrite Ql (U) Negative Negative [facility] Nucleated red blood cell per centageOrdered By: Yony Solis on 11-19-2024 Nucleated RBC/100 WBC (Bld) [Ratio] 0 % 0-5 [facility] Platelet countOrdered By: Aldair Solis on 11-19-2024 Platelets (Bld) [#/Vol] 231 10*3/uL 150-450 [facility] Potassium (Unsp spec) [Mass/ Vol]Ordered By: Yony Solis on 11-19-2024 Potassium [Moles/Vol] 4.9 mmol/L 3.3-5.1 [facility] Potassium measurement (mass/ volume)Ordered By: Yony Solis on 11-19-2024 Potassium (Unsp spec) [Mass/Vol] 4.9 mmol/L 3.3-5.1 [facility] Protein Test strip Ql (U)Ord ered By: Yony Solis on 11-19-2024 Protein Ql (U) 30 mg/dl High Negative [facility] RBC Auto (Bld) [#/Vol]Ordere d By: Yony Solis on 11-19-2024 RBC (Bld) [#/Vol] 5.65 10*6/uL 4.6-6.2 [facility] Serum creatinine measurement (mass/volume)Ordered By: Yony Solis on 11-19-2024 Creatinine [Mass/Vol] 2.11 mg/dL High 0.70-1.20 [facility] Serum glucose measurement (m ass/volume)Ordered By: Yony Solis on 11-19-2024 Glucose [Mass/Vol] 279 mg/dL High 70-99 [facility] Serum or plasma calcium regi urement (mass/volume)Ordered By: Yony Solis on 11-19-2024 Calcium [Mass/Vol] 10.1 mg/dL 7.6-11.0 [facility] Serum or plasma urea nitroge n measurement (mass/volume)Ordered By: Yony Solis on 11-19-2024 Urea nitrogen [Mass/Vol] 33 mg/dL High 4-19 [facility] Sodium levelOrdered By: Yony Solis on 11-19-2024 Sodium [Moles/Vol] 139 mmol/L 133-145 [facility] Squamous epithelial cells de tection in urine sediment by light microscopyOrdered By: Yony Solis on 11-19-2024 Epithelial cells.squamous LM Ql (Urine sed) 0-5 SEEN /hpf 0-5 [facility] Urinalysis, Completeon 11-19 CAST,HYALINE 0-5 SEEN Normal 0-5 [facility] Comment on above: Order Comment: CLEAN CATCH Performed By: #### L 400.0001 #### [facility] [address] [place], [address] EPI,SQUAMOUS 0-5 SEEN Normal 0-5 [facility] Comment on above: Order Comment: CLEAN CATCH Performed By: #### L 400.0001 #### [facility] [address] [place], [address] RBC 10-25 SEEN Normal 0-5 [facility] Comment on above: Order Comment: CLEAN CATCH Performed By: #### L 400.0001 #### [facility] [address] [place], [address] WBC 0-5 SEEN Normal 0-5 [facility] Comment on above: Order Comment: CLEAN CATCH Performed By: #### L 400.0001 #### [facility] [address] [place], [address] BACTERIA 0 SEEN Normal None Seen [facility] Comment on above: Order Comment: CLEAN CATCH Performed By: #### L 400.0001 #### [facility] [address] [place], [address] Mucus Ql (Urine sed) 0 SEEN Normal [facility] Comment on above: Order Comment: CLEAN CATCH Performed By: #### L 400.0001 #### [facility] [address] [place], [address] Urine blood detectionOrdered By: Yony Solis on 11-19-2024 Urine Occult Blood 250 /ul High Negative [facility] Urine clarityOrdered By: Brien Solis on 11-19-2024 Clarity (U) Clear Clear [facility] Urine color determinationOrd ered By: Yony Solis on 11-19-2024 Color (U) Yellow Yellow [facility] Urine cultureOrdered By: Brien Solis on 11-19-2024 Bacteria identified Cx Nom (U) Positive Abnormal [facility] Urine glucose detectionOrder ed By: Yony Solis on 11-19-2024 Glucose Ql (U) 1000 mg/dl High Normal [facility] Urine leukocyte esterase det ection by dipstickOrdered By: Yony Solis on 11-19-2024 Leukocyte esterase Test strip Ql (U) 25 /ul High Negative [facility] Urine pHOrdered By: Yony Solis on 11-19-2024 pH (U) 6.0 [pH] 5.0 - 8.0 [facility] Urine sediment bacteria coun t by microscopy (number/high power field)Ordered By: Yony Solis on 11-19-2024 Bacteria LM.HPF (Urine sed) [#/Area] 0 /[HPF] None Seen [facility] Urine specific gravity measu rementOrdered By: Yony Solis on 11-19-2024 Specific gravity (U) [Rel density] 1.015 1.002-1.030 [facility] Urine urobilinogen measureme ntOrdered By: Yony Solis on 11-19-2024 Urobilinogen Ql (U) Normal mg/dl Normal [facility] Urobilinogen Ql (U)Ordered B y: Yony Solis on 11-19-2024 Urine Urobilinogen Normal mg/dl Normal [facility] White blood cell (WBC) count Ordered By: Yony Solis on 11-19-2024 WBC (Bld) [#/Vol] 8.8 10*3/uL 4.4-11.0 [facility] White blood cell countOrdere d By: Yony Solis on 11-19-2024 Urine WBC 0-5 SEEN /hpf 0-5 [facility] White blood cell count 0-5 SEEN /hpf 0-5 [facility] CNOVon 09-28-2024 CNOV Office Visit (INTMWS ) ITALO BURGOS ([id number]) 1970 M Date Time Provider Department 09/28/24 [...] Date Acute diastolic (congestive) heart failure ([facility]) Bronchitis Chronic kidney failure, stage 4 (severe) ([facility]) 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 Normal [facility] Endocrinology Visit Reporton 07-28-2024 Endocrinology Visit Report [facility] [address] 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 Normal [facility] Laboratory - Hematology and Cell countson 07-28-2024 HbA1c (Bld) [Mass fraction] 8.5 % High 4.2-6.3 [facility] 06-23-2024 [facility] Telephone (TXCTGL) ITALO BRUGOS ([id number]) 1970 Silvano Date Time Provider Department 06/23/24 AMANDA HAYES TXANDREI During your visit today, we recorded the following information about you: Amanda Hayes LISW 06/23/2024 11:10 AM Signed SW returned pt's phone call. Pt stated his Envarsus went to $92 a month. Pt reports he still has [facility] Dual (Medicare AND Medicaid) and he is not sure why his copay went up. SW informed pt that they can apply for assistance for envarsus via [employer]. ADDY emailed pt his portion of the envarsus application, as well as a 30 day copay card. SW will work on her portion of the application. Pt denies any other questions/concerns at this time. Pt has SW contact information for any future questions/concerns. SARA [employer] Allergies As of Date: 06/23/2024 (No Known Allergies) Date Reviewed: 06/18/2024 Reviewed by: Deep Hanson LPN - Fully Assessed Reason for Visit: Follow Up [171] Prescriptions as of 06/23/2024 - tacrolimus IR (PROGRAF) 1 mg capsule Take 2 caps in am and 1 cap in pm - Blood-Glucose Meter,Continuous (DEXCOM G6 FORESTRY HUNTER) misc 1 Each continuous. - Blood-Glucose Sensor [...] Units subcutaneously daily at bedtime. - Insulin [place], Disposable, (BD ULTRA-FINE SANDRA PEN NEEDLE) 32 [...] 3 mg/actuation nasal spray (BAQSIMI) Use 1 [place] in the nose as needed for low [...] polyneuropathy associa (more content not included)... Normal [facility] CNOVon 06-18-2024 CNOV Office Visit (INTMWS ) ITALO BURGOS ([id number]) 1970 M Date Time Provider Department 06/18/24 [...] HPL, renal calculi in the new kidney, ULANNE. S/p amputation of all the left toes. 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 Normal [facility] [place] 06-18-2024 ANDREWS Telephone (TXCTGL) ITALO BURGOS ([id number]) 1970 Silvano Date Time Provider Department 06/18/24 AMANDA HAYES TXCTGL During your visit today, we recorded the following information about you: Amanda Hayes LISW 06/18/2024 11:38 AM Signed ADDY attempted to call pt per request of [employer] regarding possible copay issues for Envarsus. In reviewing pt's chart is appears that pt has [facility] Dual (Medicare AND Medicaid.) ADDY attempted to contact pt and SW left a message. SW will await return phone call. SARA [employer] Allergies As of Date: 06/18/2024 (No Known Allergies) Date Reviewed: 06/18/2024 Reviewed by: Deep Hanson LPN - Fully Assessed Reason for Visit: Follow Up [171] Prescriptions as of 06/18/2024 - tacrolimus IR (PROGRAF) 1 mg capsule Take 2 caps in am and 1 cap in pm - Blood-Glucose Meter,Continuous (DEXCOM G6 FORESTRY HUNTER) misc 1 Each continuous. - Blood-Glucose Sensor [...] for every 40 >180 mg/dL) - Insulin [place], Disposable, (BD ULTRA-FINE SANDRA PEN NEEDLE) 32 [...] 3 mg/actuation nasal spray (BAQSIMI) Use 1 [place] in the nose as needed for low [...] classified [*0 (more content not included)... Normal [facility] HEMOGLOBIN A1C (POC)on 06-18 HbA1c (Bld) [Mass fraction] 7.1 % Abnormal 4.3 - 5.6 % [facility] Comment on above: Location:[facility], [address] [place] [address], [place], [address] Point of care (POC) Hemoglobin A1c (HGBA1C) [...] specific diabetes management situations: The POC device foreign clerk provides a normal range of 4.2% to 6.5% for the HGBA1C POC test. However, the [place] [employer] guidelines indicate that patients with [...] Interpretation and review of laboratory results Abnormal [facility] CNPNon 06-16-2024 CNPN Telephone (TXCTGL) ITALO BURGOS ([id number]) 1970 M Date Time Provider Department 06/16/24 KIDNEY TXP COORDINATORS [facility] During your visit today, we recorded the following information about you: Ramya Hernandez 06/16/2024 12:35 PM Signed Patient called regarding his Envarsus, He has been out for a week. His insurance is telling him it is a tier 4 medication and it is $100 of which he cannot afford. . Requesting a return call from the phlebotomy coordinator. Please call Italo at [phone]. Allergies As of Date: 06/16/2024 (No Known Allergies) Date Reviewed: 04/01/2024 Reviewed by: Nga Ford, ANDER - Fully Assessed Prescriptions as of 06/18/2024 - tacrolimus IR (PROGRAF) 1 mg capsule Take 2 caps in am and 1 cap in pm - Blood-Glucose Meter,Continuous (DEXCOM G6 FORESTRY HUNTER) misc 1 Each continuous. - Blood-Glucose Sensor [...] Units subcutaneously daily at bedtime. - Insulin [place], Disposable, (BD ULTRA-FINE SANDRA PEN NEEDLE) 32 [...] 3 mg/actuation nasal spray (BAQSIMI) Use 1 [place] in the nose as needed for low [...] instability [R (more content not included)... [facility] IT[facility]UR[facility] ([id number]) 1970 M Date Time Provider Department 06/16/24 ALANA KENT TXCTGL During your visit today, we recorded the following information about you: Alana Kent APRN.CNP 06/16/2024 1:34 PM Signed Pt called stating he has been out of Envarsus x 1 week and is unable to afford co-pay. Will try switching to tacrolimus temporarily and discuss with social media sr strategy manager if pt is eligible for patient assistance. Pt currently on 2.25 mg Envarsus will start tac 10/10 Alana Kent APRN.SENIOR NET SOFTWARE DEVELOPER' Allergies As of Date: 06/16/2024 (No Known [...] in pm - Blood-Glucose Meter,Continuous (DEXCOM G6 FORESTRY HUNTER) misc 1 Each continuous. - Blood-Glucose Sensor [...] for every 40 >180 mg/dL) - Insulin [place], Disposable, (BD ULTRA-FINE SANDRA PEN NEEDLE) 32 [...] 3 mg/actuation nasal spray (BAQSIMI) Use 1 [place] in the nose as needed for low [...] 140/90 * (more content not included)... Normal [facility] Endocrinology Visit Reporton 04-30-2024 Endocrinology Visit Report [facility] [address] [place] [address] OFFICE VISIT Date of Service: 04/30/24 MR#: [id number] Acct: [id number] Name: ITALO BURGOS Rep #: [id number] : 1970 Provider: Silvano Cuellar Age/Sex: 53/M [facility] Status: Signed Intake Vital Signs 03/24/24 11:26 [...] 1 M FU Chief Complaint: f/u diabetes Machine Clerical Verifier Required: No Accompanied by: Self Is patient [...] #42 mL pen (Humalog Mix 50-50 KwikPen) [facility] Medical History Congestive heart failure (CHF) Diabetic [...] (LHC) ( 06/26/11) Atherosclerotic heart disease of [place]yung coronary artery without angina pectoris Essential hypertension [...] Complaint: f/u (more content not included)... Normal [facility] ANES POSTPROC EVALon 024 ANES POSTPROC EVAL HNO ID: [id number] Author: AMARA SLOAN DO Service: Anesthesiology Author Type: Anesthesiologist Type: Anesthesia Postprocedure Evaluation Filed: 04/01/2024 18:23 Note Text: POST ANESTHESIA EVALUATION NOTE : 1970 Procedure Summary Date: 04/01/24 Room / Location: [facility] Endoscopy Anesthesia Start: 1214 Anesthesia Stop: 1253 Procedures: EGD DIAGNOSTIC COLONOSCOPY DIAGNOSTIC Diagnosis: Diarrhea, unspecified type (Established gastro-esophageal reflux disease) (High risk colon cancer surveillance: Personal history of colonic polyps) Scheduled Providers: Lali Raman MD; Dasha Lux APRN.DOCUMENT MANAGEMENT ANALYST; Amara Sloan DO Responsible Provider: Amara Sloan [...] April 01, 2024 TIME: 6:23 PM CSN: [id number] Normal [facility] ANES PRE-OPon 04-01-2024 ANES PRE-OP HNO ID: [id number] Author: AMARA SLOAN DO Service: Anesthesiology Author Type: Anesthesiologist Type: Anesthesia Preprocedure Evaluation Filed: 04/01/2024 11:41 Note Text: ANESTHESIOLOGY DAY OF SURGERY NOTE : 1970 Procedure Information Date/Time: 04/01/24 1230 Scheduled providers: Lali Raman MD; Dasha Lux APRN.DOCUMENT MANAGEMENT ANALYST; Amara Sloan DO Procedures: EGD DIAGNOSTIC COLONOSCOPY DIAGNOSTIC Location: [facility] Estimated body mass index is [...] units for every 40 >180 mg/dL) Insulin [place], Disposable, (BD ULTRA-FINE SANDRA PEN NEEDLE) 32 [...] 3 mg/actuation nasal spray (BAQSIMI) Use 1 [place] in the nose as needed for low blood sugar. May repeat after 15 minutes using a new device if th (more content not included)... Normal [facility] Colonoscopyon 04-01-[address] [facility] Gastrointestinal Endoscopy Patient Name: Italo Burgos Procedure Date: 04/01/2024 12:26 PM Date of : 1970 Admit Type: Outpatient Age: 53 Room: [facility] Gender: Male Note Status: Finalized Attending MD: Lali Raman MD, [id number] Procedure: Colonoscopy - screening high risk Indications: [...] anesthesia care under the supervision of a DOCUMENT MANAGEMENT ANALYST was determined to be medically necessary for [...] previous diet. Procedure Code(s): --- Professional --- 12635, Colonoscopy, flexible; diagnostic, including collection of specimen(s) by brushing or washing, when performed (separate procedure) Diagnosis Code(s): --- Professional --- K64.8, Other hemorrhoids Z86.010, Personal history of colonic polyps Z12.11, Encounter for screening for malignant neoplasm of colon CPT copyright 2020 [employer]. All rights reserved. The codes documented in this report are preliminary and upon operations supervisor 2nd shift review may be revised to meet current compliance requirements. Attending Participation: I personally performed the entire procedure. Scope In: 12:29:21 PM Scope Out: 12:46:56 PM MD Lali Guerra MD 04/01/2024 12:50:36 PM This report has been signed electronically by Lali Raman MD Number of Addenda: 0 Note Initiated On: 04/01/2024 12:26 PM Estimated Blood Loss: Estimated blood loss: none. Normal [facility] EGD Study observation Eddie way 04-01-2024 [facility] Gastrointestinal Endoscopy Patient Name: Italo Burgos Procedure Date: 04/01/2024 12:17 PM Date of : 1970 Admit Type: Outpatient Age: 53 Room: [facility] Gender: Male Note Status: Finalized Attending MD: Lali Raman MD, [id number] Procedure: Upper GI endoscopy Indications: Gastro-esophageal reflux disease Providers: Lali Raman MD Patient Profile: Refer to note in patient chart for documentation of history and physical. Referring Physician: Nia James (Referring ) Medicines: See the Anesthesia note for documentation of the administered medications Complications: No immediate complications. Requesting Provider: Procedure: Pre-Anesthesia Assessment: - Monitored anesthesia care under the supervision of a DOCUMENT MANAGEMENT ANALYST was determined to be medically necessary for [...] future endoscopies Procedure Code(s): --- Professional --- 81293, Esophagogastroduodenosc opy, flexible, transoral; with biopsy, single or multiple Diagnosis Code(s): --- Professional --- K21.9, Gastro-esophageal reflux disease without esophagitis K22.89, Other specified disease of esophagus K31.89, Other diseases of stomach and duodenum CPT copyright 2020 [employer]. All rights reserved. The codes documented in this report are preliminary and upon operations supervisor 2nd shift review may be revised to meet current compliance requirements. Attending Participation: I personally performed the entire procedure. Scope In: 12:19:55 PM Scope Out: 12:24:39 PM MD Lali Guerra MD 04/01/2024 12:28:27 PM This report has been signed electronically by Lali Raman MD Number of Addenda: 0 Note Initiated On: 04/01/2024 12:17 PM Estimated Blood Loss: Estimated blood loss was minimal. PROVATION [facility] Radiology Study observation (narrative) [facility] Flexible sigmoidoscopy study on 04-01-2024 [facility] Gastrointestinal Endoscopy Patient Name: Italo Burgos Procedure Date: 04/01/2024 12:26 PM Date of : 1970 Admit Type: Outpatient Age: 53 Room: [facility] Gender: Male Note Status: Finalized Attending MD: Lali Raman MD, [id number] Procedure: Colonoscopy - screening high risk Indications: [...] anesthesia care under the supervision of a DOCUMENT MANAGEMENT ANALYST was determined to be medically necessary for [...] previous diet. Procedure Code(s): --- Professional --- 65313, Colonoscopy, flexible; diagnostic, including collection of specimen(s) by brushing or washing, when performed (separate procedure) Diagnosis Code(s): --- Professional --- K64.8, Other hemorrhoids Z86.010, Personal history of colonic polyps Z12.11, Encounter for screening for malignant neoplasm of colon CPT copyright 2020 [employer]. All rights reserved. The codes documented in this report are preliminary and upon operations supervisor 2nd shift review may be revised to meet current compliance requirements. Attending Participation: I personally performed the entire procedure. Scope In: 12:29:21 PM Scope Out: 12:46:56 PM MD Lali Guerra MD 04/01/2024 12:50:36 PM This report has been signed electronically by Lali Raman MD Number of Addenda: 0 Note Initiated On: 04/01/2024 12:26 PM Estimated Blood Loss: Estimated blood loss: none. PROVATION [facility] Radiology Study observation (narrative) [facility] GLUCOSE, BLOOD (POC)on 04-01 Glucose [Mass/Vol] 162 mg/dL Abnormal 74 - 99 mg/dL [facility] Comment on above: Location:[facility] ital, [facility] [place], [place], [facility] The Accu-Chek Inform II glucose meter has [...] Interpretation and review of laboratory results Abnormal [facility] Glucose [Mass/Vol] 174 mg/dL Abnormal 74 - 99 mg/dL [facility] Comment on above: Location:[facility] ital, [address], [place], [address] The Accu-Chek Inform II glucose meter has [...] Interpretation and review of laboratory results Abnormal [facility] HISTORY PHYSICALon HISTORY PHYSICAL HNO ID: [id number] Author: LALI RAMAN MD Service: General Surgery Author Type: Physician Type: H&P Filed: 04/01/2024 11:26 Note Text: HISTORY AND PHYSICAL Italo Burgos : 1970 REFERRING PHYSICIAN: 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 [address] [facility] [address] CHIEF COMPLAINT: Patient presents with: Consult: Colonoscopy [...] has type 2 diabetes he follows with [place] [facility], last appointment was 12/2023. Diabetes is uncontrolled most recent hemoglobin A1c was 10.2. Italo followed up with endocrinology today his hemoglobin A1c was 10.1. Dr. Durand increased his Trulicity but he is unsure to what dose. Italo has undergone prior endoscopy. Last EGD AND colonoscopy in 11/[address] Raman at [facility] EGD Impression: - Normal esophagus. - Normal [...] units for every 40 >180 mg/dL) Insulin [place], Disposable, (BD ULTRA-FINE SANDRA PEN NEEDLE) 32 [...] 3 mg/actuation nasal spray (BAQSIMI) Use 1 [place] in the nose as needed for low [...] cm of (more content not included)... Normal [facility] SURGICAL PATHOLOGYon 024 ADDENDUM 1: [facility] Comment on above: Order Comment: Speci men Type: TISSUE SPECIMEN Ordering Facility: [facility] Address: [address] [place] [address] Result Comment: Adde ndum is issued to reflect the result of immunohistochemical stain: - Immunostain for H. pylori is negative in part A. Addendum electronically signed by Brendan Dominguez MD, PhD on 04/08/2024 at 2:12 PM Performed By: #### S #### [facility] CLIA [id number] [address] [place] [address] [place] [address] [place] CASE REPORT [facility] Comment on above: Order Comment: Speci men Type: TISSUE SPECIMEN Ordering Facility: [facility] Address: [address] [place] [address] Result Comment: Surg ica Pathology Report Case: [id number] Authorizing Provider: Lali Raman MD Collected: 04/01/2024 12:22 PM Ordering Location: [facility] Received: 04/01/2024 02:05 PM Pathologist: Brendan Dominguez MD, PhD Specimens: A) - Stomach, Antrum, Biopsy, R/O H. Pylori B) - Esophagogastric Junction, Biopsy, R/O Barillas's Performed By: #### S #### [facility] CLIA [id number] [address] [place] [address] [place] FINAL DIAGNOSIS Normal [facility] Comment on above: Order Comment: Speci men Type: TISSUE SPECIMEN Ordering Facility: [facility] Address: [address] [place] [address] Result Comment: A. G astric antrum, biopsy: [...] or dysplasia. Performed By: #### S #### [facility] CLIA [id number] [address] [place] [address] OF [facility] FINAL PERFORMING LAB Normal [facility] Comment on above: Order Comment: Speci men Type: TISSUE SPECIMEN Ordering Facility: [facility] Address: [address] [place] [address] Result Comment: Diag nostic interpretation performed at [facility], [address] [place] [address] CLIA# [id number] Dancing Master: Kamran Brooks M.D. Performed By: #### S #### [facility] CLIA [id number] [address] [place] [address] [place] GROSS DESCRIPTION Normal [facility] Comment on above: Order Comment: Speci men Type: TISSUE SPECIMEN Ordering Facility: [facility] Address: [address], [place] [address] Result Comment: A. S tomach, Antrum, Biopsy [...] 2024 6:13 PM Gross examination performed at [facility], [address] [place] [address] Performed By: #### S #### [facility] CLIA [id number] [address] [place] [address] Upper GI endoscopyon 24-[address] [facility] Gastro[facility] Endoscopy Patient Name: Italo uBrgos Procedure Date: 04/01/2024 12:17 PM Date of : 1970 Admit Type: Outpatient Age: 53 Room: [facility] Gender: Male Note Status: Finalized Attending MD: Lali Raman MD, [id number] Procedure: Upper GI endoscopy Indications: Gastro-esophageal reflux disease Providers: Lali Raman MD Patient Profile: Refer to note in patient chart for documentation of history and physical. Referring Physician: Nia James (Referring MD) Medicines: See the Anesthesia note for documentation of the administered medications Complications: No immediate complications. Requesting Provider: Procedure: Pre-Anesthesia Assessment: - Monitored anesthesia care under the supervision of a DOCUMENT MANAGEMENT ANALYST was determined to be medically necessary for [...] future endoscopies Procedure Code(s): --- Professional --- 39782, Esophagogastroduodenosc opy, flexible, transoral; with biopsy, single or multiple Diagnosis Code(s): --- Professional --- K21.9, Gastro-esophageal reflux disease without esophagitis K22.89, Other specified disease of esophagus K31.89, Other diseases of stomach and duodenum CPT copyright 2020 [employer]. All rights reserved. The codes documented in this report are preliminary and upon operations supervisor 2nd shift review may be revised to meet current compliance requirements. Attending Participation: I personally performed the entire procedure. Scope In: 12:19:55 PM Scope Out: 12:24:39 PM MD Lali Guerra MD 04/01/2024 12:28:27 PM This report has been signed electronically by Lali Raman MD Number of Addenda: 0 Note Initiated On: 04/01/2024 12:17 PM Estimated Blood Loss: Estimated blood loss was minimal. Normal [facility] PROTEIN / CREATININE RATIOon 01-13-2024 Protein/Creatinine (U) [Mass ratio] 0.10 mg/mg [facility] 0.15 mg/mg [facility] Comment on above: Adult Proteinuria Ca [...] [Mass/Vol] 135.6 mg/dL 20.0 - 300.0 mg/dL [facility] Interpretation and review of laboratory results Normal [facility] Protein (U) [Mass/Vol] 13 mg/dL 0 - 2 0 mg/dL [facility] URINALYSIS, REFLEX MICROSCOP ICOrdered By: Mesha Mcdaniel on 01-13-2024 Bilirubin Ql (U) Negative Negative [facility] Clarity (Unsp spec) Clear Clear [facility] Color (U) Yellow Yellow [facility] Glucose Test strip (U) [Mass/Vol] 4+ Abnormal Trace, Negative [facility] Comment on above: Result rechecked. Hemoglobin Ql (U) Negative Negative, Trace [facility] Interpretation and review of laboratory results Abnormal [facility] Ketones Ql (U) Negative Negative, Trace [facility] Leukocyte esterase Test strip Ql (U) Negative Negative, 25 Pam/uL [facility] Nitrite Ql (U) Negative Negative [facility] pH (U) 5.5 [pH] 5.0 - 8.0 [facility] Protein (U) [Mass/Vol] Negative Trace , Negative [facility] Specific gravity (U) [Rel density] 1.023 1.005 - 1.030 [facility] Urobilinogen Ql (U) Normal Normal [facility] Basophil percentageOrdered B y: Conchis Meza on 01-03-2024 Bilirubin [Mass/Vol] 0.90 mg/dL 0.20-1.00 [facility] Comment on above: For patients on eltr ombopag therapy, use of Dimension Coldiron TBIL is not recommended. Chloride [Moles/Vol] 110 mmol/L 98-107 [facility] Cholesterol [Mass/Vol] 168 mg/dL <200 [facility] Comment on above: <200 mg/dL Desirable 200-240 mg/dL Borderline >240 mg/dL High Risk Glucose [Mass/Vol] 239 mg/dL 74-106 [facility] Comment on above: Glucose result great er than or equal to 200 mg/dLsuggests DIABETES MELLITUS per A.D.A. criteria. Potassium [Moles/Vol] 4.9 mmol/L 3.5-5.1 [facility] Protein [Mass/Vol] 7.2 g/dL 6.4-8.2 [facility] Sodium [Moles/Vol] 138 mmol/L 136-145 [facility] Triglyceride [Mass/Vol] 119 mg/dL <199 [facility] Comment on above: The drugs N-Acetylcy steine and Metamizole may falsely depress this assay.Serum Triglycerides Reference Interval Normal <150 mg/dL Borderline high 150 - 199 mg/dL High 200 - 499 mg/dL Very High > or = 500 mg/dL Laboratory - Chemistry and C hemistry - challengeOrdered By: Conchis Meza on 01-03-2024 Albumin/Globulin [Mass ratio] 1.1 {ratio} 0.9-2.4 [facility] ALP [Catalytic activity/Vol] 208 U/L 45-117 [facility] ALT [Catalytic activity/Vol] 124 U/L 16-61 [facility] Cholesterol in HDL [Mass/Vol] 51 mg/dL >40 [facility] Comment on above: The drugs N-Acetylcy steine and Metamizole may falsely depress this assay. Reference Range HDL <40 mg/dL Low HDL Cholesterol HDL >or= 60 mg/dL High HDL Cholesterol Cholesterol in LDL [Mass/Vol] 93 mg/dL 0-130 [facility] CO2 [Moles/Vol] 24.0 mmol/L 21.0-32.0 [facility] Globulin (S) [Mass/Vol] 3.5 g/dL 2.2-4.2 [facility] Urea nitrogen/Creatinine [Mass ratio] 14.8 mg/mg 10-20 [facility] No Panel InformationOrdered By: Conchis Meza on 01-03-2024 Estimated GFR (MDRD) Amer 67 mL/min >60 [facility] Comment on above: GFR Calc Estimated GFR (MDRD) Non-Af Amer 55 mL/min >60 [facility] Comment on above: Non- GFR Calc Urine Microalbumin/Creatinine Ratio 21.2 mg/g CRE <30 [facility] Vitamin D 25-Hydroxy 35.0 ng/mL [facility] Comment on above: Vitamin D 25(OH) Sta tus Range Deficiency <20 ng/mL (50nmol/L) Insufficiency 20 - 30 ng/mL (50 - 75 nmol/L) Sufficiency 30 - 100 ng/mL (75 - 250 nmol/L) Toxicity >100 ng/mL (>250 nmol/L) VLDL Cholesterol 24 mg/dL 5-40 [facility] Serum or plasma calcium regi urement (mass/volume)Ordered By: Conchis Meza on 01-03-2024 Calcium [Mass/Vol] 9.1 mg/dL 8.5-10.1 [facility] Serum or plasma creatinine m easurement (mass/volume)Ordered By: Conchis Meza on 01-03-2024 Creatinine [Mass/Vol] 1.42 mg/dL 0.70-1.30 [facility] Comment on above: The validity of the calculated GFR & GFRAA in patients over 70 years has not been determined. Clinical correlation is essential. Serum or plasma thyroid stim ulating hormone (TSH) measurement (units/volume)Ordered By: Conchis Meza on 01-03-2024 TSH Qn 0.78 uIU/mL 0.358-3.74 [facility] Serum or plasma urea nitroge n measurement (mass/volume)Ordered By: Conchis Meza on 01-03-2024 Urea nitrogen [Mass/Vol] 21 mg/dL 7-18 [facility] Thin prep Papanicolaou smear with manual screeningOrdered By: Conchis Meza on 01-03-2024 Thin prep Papanicolaou smear with manual screening 3.7 g/dL 3.2-5.0 [facility] Thin prep Papanicolaou smear with manual screening 45 U/L 15-37 [facility] Thin prep Papanicolaou smear with manual screening 4 5-15 [facility] Thin prep Papanicolaou smear with manual screening 14.1 mg/L NO RANGE EST. [facility] Urine creatinine measurement (mass/volume)Ordered By: Conchis Meza on 01-03-2024 Creatinine (U) [Mass/Vol] 66.40 mg/dL NO RANGE EST. [facility] Laboratory - Hematology and Cell countson 10-24-2023 HbA1c (Bld) [Mass fraction] 11.6 % 4.2-6.3 [facility] Lipid 1996 panelon 3 Cholesterol [Mass/Vol] 128 mg/dL <200 mg/dL [facility] Cholesterol in HDL [Mass/Vol] 37 mg/dL Low >39 mg/dL [facility] Cholesterol in LDL [Mass/Vol] 52 mg/dL <100 mg/dL [facility] Cholesterol in LDL/Cholesterol in HDL [Mass ratio] 1.41 {ratio} <2.54 [facility] Cholesterol in VLDL [Mass/Vol] 39 mg/dL High <30 mg/dL [facility] Cholesterol non HDL [Mass/Vol] 91 mg/dL <130 mg/dL [facility] Cholesterol.total/Choles terol in HDL [Mass ratio] 3.46 {ratio} <5.10 [facility] Fasting Time 0 hrs [facility] Triglyceride [Mass/Vol] 195 mg/dL High <150 mg/dL [facility] - Microbiology an d Antimicrobial susceptibilityon 07-15-2023 BK virus DNA CARMEN+probe [#/Vol] Not detected BK Virus DNA Not Detected by PCR. [facility] PROTEIN CREATININE RATIOon 1 09-14-2022 Protein/Creatinine (U) [Mass ratio] 0.07 mg/mg <0.15 mg/mg [facility] PTH INTACT BLDon 07-15-2023 Parathyrin.intact [Mass/Vol] 54 pg/mL 15 - 65 pg/mL [facility] Protein/Creatinine (U) [Mass ratio]on 07-15-2023 Creatinine (U) [Mass/Vol] 141.1 mg/dL 20.0 - 300.0 mg/dL [facility] Protein (U) [Mass/Vol] 10 mg/dL 0 - 2 0 mg/dL [facility] Urinalysis complete panel (U )on 07-15-2023 Bilirubin Ql (U) Negative Negative [facility] Clarity (Unsp spec) Clear Clear [facility] Color (U) Yellow Yellow [facility] Glucose Test strip (U) [Mass/Vol] 3+ Abnormal Trace, Negative [facility] Hemoglobin Ql (U) Negative Negative, Trace [facility] Hyaline casts (Urine sed) [#/Area] /[LPF] Abnormal 0 /LPF [facility] Ketones Ql (U) Negative Negative, Trace [facility] Leukocyte esterase Test strip Ql (U) Negative Negative, 25 Pam/uL [facility] Nitrite Ql (U) Negative Negative [facility] pH (U) 5.0 [pH] 5.0 - 8.0 [facility] Protein (U) [Mass/Vol] Negative Trace , Negative [facility] RBC LM.HPF (Urine sed) [#/Area] 0-3 /HPF 0-3 /HPF [facility] Specific gravity (U) [Rel density] 1.013 1.005 - 1.030 [facility] Urobilinogen Ql (U) Negative Negative [facility] WBC LM.HPF (Urine sed) [#/Area] 0-5 /HPF 0-5 /HPF [facility] VITAMIN D 25 HYDROXYon 07-15 25-hydroxyvitamin D3 [Mass/Vol] 19.5 ng/mL Low 31.0 - 80.0 ng/mL [facility] US LEG VEIN DVT UNL VAS LABo n 04-09-2023 [facility] Glucose Glucometer (BldC) [M ass/Vol]Ordered By: Loi Saldana on 03-14-2023 Glucose [Mass/Vol] 129 mg/dL 74-106 [facility] Comment on above: MANAGEMENT OF PATIEN T CARE PER NURSING PROTOCOL Absolute lymphocyte countOrd ered By: Loi Saldana on 03-13-2023 Lymphocytes Auto (Unsp spec) [#/Vol] 1.65 10*3/uL 0.83-4.51 [facility] Basophil percentageOrdered B y: Loi Saldana on 03-13-2023 Basophils/100 WBC (Bld) 0.3 % 0-1 [facility] Bilirubin [Mass/Vol] 0.50 mg/dL 0.20-1.00 [facility] Comment on above: For patients on eltr ombopag therapy, use of Dimension Coldiron TBIL is not recommended. Chloride [Moles/Vol] 107 mmol/L 98-107 [facility] Eosinophils/100 WBC (Bld) 0.8 % 0-5 [facility] Glucose [Mass/Vol] 186 mg/dL 74-106 [facility] Comment on above: Fasting Glucose resu lt greater than or equal to 126 mg/dL suggests DIABETES MELLITUS per A.D.A. criteria. Neutrophils (Bld) [#/Vol] 4.9 10*3/uL 2.0-7.7 [facility] Neutrophils/100 WBC (Bld) 67.1 % 47-70 [facility] Potassium [Moles/Vol] 4.1 mmol/L 3.5-5.1 [facility] Protein [Mass/Vol] 7.4 g/dL 6.4-8.2 [facility] Sodium [Moles/Vol] 137 mmol/L 136-145 [facility] WBC (Bld) [#/Vol] 7.3 10*3/uL 4.4-11.0 [facility] Basophil percentage 0-5 SEEN /hpf 0-5 [facility] Bilirubin Test strip Ql (U)O rdered By: Loi Saldana on 03-13-2023 Bilirubin Ql (U) Negative Negative [facility] Blood erythrocytes count (nu mber/volume)Ordered By: Loi Saldana on 03-13-2023 RBC (Bld) [#/Vol] 5.10 10*6/uL 4.6-6.2 [facility] Blood hemoglobin measurement (mass/volume)Ordered By: Loi Saldana on 03-13-2023 Hemoglobin (Bld) [Mass/Vol] 15.9 g/dL 13.0-16.5 [facility] Blood lymphocytes/100 leukoc ytesOrdered By: Loi Saldana on 03-13-2023 Lymphocytes/100 WBC (Bld) 22.5 % 19-41 [facility] Blood monocytes/100 leukocyt esOrdered By: Loi Saldana on 03-13-2023 Monocytes/100 WBC (Bld) 9.0 % 0-10 [facility] Blood platelet mean volumeOr dered By: Loi Saldana on 03-13-2023 Platelet mean volume (Bld) [Entitic vol] 9.8 fL 6.2-12.0 [facility] Determination of erythrocyte mean corpuscular volume (MCV)Ordered By: Loi Saldana on 03-13-2023 MCV (RBC) [Entitic vol] 93.1 fL 80-94 [facility] Hematocrit Auto (Bld) [Volum e fraction]Ordered By: Lio Sladana on 03-13-2023 Hematocrit (Bld) [Volume fraction] 47.5 % 40-54 [facility] Ketones Test strip Ql (U)Ord ered By: Loi Saldana on 03-13-2023 Ketones Ql (U) Negative Negative [facility] Laboratory - Chemistry and C hemistry - challengeOrdered By: Loi Saldana on 03-13-2023 ALP [Catalytic activity/Vol] 213 U/L 45-117 [facility] ALT [Catalytic activity/Vol] 53 U/L 16-61 [facility] CO2 [Moles/Vol] 21.0 mmol/L 21.0-32.0 [facility] Globulin (S) [Mass/Vol] 3.5 g/dL 2.2-4.2 [facility] Urea nitrogen/Creatinine [Mass ratio] 14.6 mg/mg 10-20 [facility] Laboratory - Hematology and Cell countsOrdered By: Loi Saldana on 03-13-2023 Erythrocyte distribution width (RBC) [Entitic vol] 43.1 fL 35.1-43.9 [facility] Erythrocyte distribution width (RBC) [Ratio] 12.5 % 11.6-14.6 [facility] Immature granulocytes/100 WBC (Bld) 0.300 % 0.0-0.9 [facility] Comment on above: IG% - Immature Granu locytes (promyelocytes, myelocytes and metamyelocytes) > 1% indicates that a LEFT SHIFT is Present. MCH (RBC) [Entitic mass] 31.2 pg 27.0-32.0 [facility] Nucleated RBC/100 WBC (Bld) [Ratio] 0 % 0-5 [facility] MCHC Auto (RBC) [Mass/Vol]Or dered By: Loi Saldana on 03-13-2023 MCHC (RBC) [Mass/Vol] 33.5 g/dL 32-36 [facility] Mucus LM Ql (Urine sed)Order ed By: Loi Saldana on 03-13-2023 Mucus Ql (Urine sed) 0 SEEN /hpf [facility] Nitrite Test strip Ql (U)Ord ered By: Loi Saldana on 03-13-2023 Nitrite Ql (U) Positive Negative [facility] No Panel InformationOrdered By: Loi Saldana on 03-13-2023 Estimated Creatinine Clearance Calc 42.55 ml/min [facility] Estimated GFR (MDRD) Amer 47 mL/min >60 [facility] Comment on above: GFR Calc Estimated GFR (MDRD) Non-Af Amer 39 mL/min >60 [facility] Comment on above: Non- GFR Calc Troponin I High Sensitivity 9 pg/mL 3.0-78.0 [facility] Comment on above: Please Note: New Isha t Units and Gender Specific Reference Ranges. For more information see Policy Stat Procedure Coldiron High Sensitivity Troponin (TNIH) and attachments. Platelets bldOrdered By: Ryan Saldana on 03-13-2023 Platelets (Bld) [#/Vol] 205 10*3/uL 150-450 [facility] Protein Test strip Ql (U)Ord ered By: Loi Saldana on 03-13-2023 Protein Ql (U) 30 mg/dl Negative [facility] Serum or plasma albumin regi urement (mass/volume)Ordered By: Loi Saldana on 03-13-2023 Albumin [Mass/Vol] 3.9 g/dL 3.2-5.0 [facility] Serum or plasma albumin/glob ulin mass ratioOrdered By: Loi Saldana on 03-13-2023 Albumin/Globulin [Mass ratio] 1.1 {ratio} 0.9-2.4 [facility] Serum or plasma calcium regi urement (mass/volume)Ordered By: Loi Saldana on 03-13-2023 Calcium [Mass/Vol] 9.1 mg/dL 8.5-10.1 [facility] Serum or plasma creatinine m easurement (mass/volume)Ordered By: Loi Saldana on 03-13-2023 Creatinine [Mass/Vol] 1.92 mg/dL 0.70-1.30 [facility] Comment on above: The validity of the calculated GFR & GFRAA in patients over 70 years has not been determined. Clinical correlation is essential. Serum or plasma urea nitroge n measurement (mass/volume)Ordered By: Loi Saldana on 03-13-2023 Urea nitrogen [Mass/Vol] 28 mg/dL 7-18 [facility] Squamous epithelial cells de tection in urine sediment by light microscopyOrdered By: Loi Saldana on 03-13-2023 Epithelial cells.squamous LM Ql (Urine sed) 0 SEEN /hpf 0-5 [facility] Thin prep Papanicolaou smear with manual screeningOrdered By: Loi Saldana on 03-13-2023 Thin prep Papanicolaou smear with manual screening 33 U/L 15-37 [facility] Thin prep Papanicolaou smear with manual screening 9 5-15 [facility] Urine blood detectionOrdered By: Loi Saldana on 03-13-2023 RBC Ql (U) 10 /ul Negative [facility] RBC Ql (U) 0 SEEN /hpf 0-5 [facility] Urine clarityOrdered By: Ryan Saldana on 03-13-2023 Clarity (U) Clear Clear [facility] Urine color determinationOrd ered By: Loi Saldana on 03-13-2023 Color (U) Yellow Yellow [facility] Urine glucose detectionOrder ed By: Loi Saldana on 03-13-2023 Glucose Ql (U) 1000 mg/dl Normal [facility] Urine leukocyte esterase det ection by dipstickOrdered By: Loi Saldana on 03-13-2023 Leukocyte esterase Test strip Ql (U) 25 /ul Negative [facility] Urine pHOrdered By: Loi aguilar on 03-13-2023 pH (U) 5.0 [pH] 5.0 - 8.0 [facility] Urine sediment bacteria coun t by microscopy (number/high power field)Ordered By: Loi Saldana on 03-13-2023 Bacteria LM.HPF (Urine sed) [#/Area] RARE /hpf None Seen [facility] Urine specific gravity measu rementOrdered By: Loi Saldana on 03-13-2023 Specific gravity (U) [Rel density] 1.020 1.002-1.030 [facility] Urobilinogen Auto test strip Ql (U)Ordered By: Loi Saldana on 03-13-2023 Urobilinogen Ql (U) 1 mg/dl Normal [facility] Whole blood hemoglobin A1c/t otal hemoglobin ratio (mass fraction)Ordered By: Conchis Meza on 01-11-2023 HbA1c (Bld) [Mass fraction] 9.2 % 3.8-5.6 [facility] Comment on above: Normal < 5.7 % Predi abetic 5.7 - 6.4 % Diabetic >or= 6.5 % Please note range changes. PROTEIN CREATININE RATIOon 0 01-01-2023 Protein/Creatinine (U) [Mass ratio] 0.07 mg/mg <0.15 mg/mg [facility] Protein/Creatinine (U) [Mass ratio]on 01-01-2023 Creatinine (U) [Mass/Vol] 97.1 mg/dL 20.0 - 300.0 mg/dL [facility] Protein (U) [Mass/Vol] 7 mg/dL 0 - 2 0 mg/dL [facility] URINALYSIS, DIPSTICK ONLYon 12-31-2022 Bilirubin Ql (U) Negative Negative [facility] Clarity (Unsp spec) Clear Clear [facility] Color (U) Light Yellow Yellow [facility] Glucose Test strip (U) [Mass/Vol] 1+ Abnormal Trace, Negative [facility] Hemoglobin Ql (U) Negative Negative, Trace [facility] Ketones Ql (U) Negative Negative, Trace [facility] Leukocyte esterase Test strip Ql (U) Negative Negative, 25 Pam/uL [facility] Nitrite Ql (U) Negative Negative [facility] pH (U) 5.0 [pH] 5.0 - 8.0 [facility] Protein (U) [Mass/Vol] Negative Trace , Negative [facility] Specific gravity (U) [Rel density] 1.012 1.005 - 1.030 [facility] Urobilinogen Ql (U) Negative Negative [facility] Acid fast bacilli (AFB) cult ureOrdered By: Dr. Levy on 12-18-2022 Mycobacterium sp identified Org specific cx Nom (Unsp spec) [facility] Thin prep Papanicolaou smear with manual screeningOrdered By: Dr. Levy on 12-05-2022 Thin prep Papanicolaou smear with manual screening [facility] Anaerobic cultureOrdered By: Dr. Levy on 11-06-2022 Bacteria identified Anaer cx Nom (Unsp spec) No growth in 5 days. [facility] - Microbiology an d Antimicrobial susceptibilityOrdered By: Dr. Santiago on 11-06-2022 Bacteria identified Cx Nom (Bld) Negative [facility] Bacteria identified Cx Nom (Bld) No growth in 5 days. [facility] Bacteria identified Cx Nom ( Wound)Ordered By: Dr. Levy on 11-05-2022 Wound Culture Staphylococcus epidermidis [facility] Wound Culture Enterobacter cloacae complex [facility] Wound Culture Staphylococcus epidermidis [facility] Glucose Glucometer (BldC) [M ass/Vol]Ordered By: Dr. Levy on 11-05-2022 Glucose [Mass/Vol] 285 mg/dL 74-106 [facility] Comment on above: MANAGEMENT OF PATIEN T CARE PER NURSING PROTOCOL Serum or plasma C reactive p rotein measurement (mass/volume)Ordered By: Dr. Levy on 11-05-2022 CRP [Mass/Vol] 5.83 mg/L 0.0-3.0 [facility] Comment on above: C-Reactive Protein ( CRP) provides useful information for thediagnosis, therapy and monitoring of inflammatory processesand associated diseases. For the evaluation of Relative Riskfor Cardiovascular Disease, a High Sensitivity CRP (HSCRP)should be ordered. Vancomycin troughOrdered By: Dr. Jara on 11-05-2022 Vancomycin trough [Mass/Vol] 18.4 ug/mL 5.0-15.0 [facility] Comment on above: VANCOMYCIN STANDARED DRUG THERAPY TROUGH LEVEL: 5.0 - 15.0 mg/L VANCOMYCIN HIGH INTENSITY THERAPY TROUGH LEVEL: 15.0 - 20.0 mg/L High Intensity therapy recommended for serious lifethreatening infections include:- Rxoumunfin-Gjgxppbzhjut-Zdrenemxl (Ventilator/Healtcare Associated)-Sepsis PLEASE CONTACT PHARMACY SERVICES (#[id number]) FOR INTERPRETATIONOF RESULTS. Absolute lymphocyte countOrd ered By: Dr. Niño on 11-04-2022 Lymphocytes Auto (Unsp spec) [#/Vol] 1.64 10*3/uL 0.83-4.51 [facility] Anaerobic cultureOrdered By: Dr. Levy on 11-04-2022 Bacteria identified Anaer cx Nom (Unsp spec) No anaerobic bacteria isolated. [facility] Basophil percentageOrdered B y: Dr. Niño on 11-04-2022 Basophils/100 WBC (Bld) 0.5 % 0-1 [facility] Chloride [Moles/Vol] 114 mmol/L 98-107 [facility] Eosinophils/100 WBC (Bld) 0.8 % 0-5 [facility] Glucose [Mass/Vol] 167 mg/dL 74-106 [facility] Comment on above: Fasting Glucose resu lt greater than or equal to 126 mg/dL suggests DIABETES MELLITUS per A.D.A. criteria. Neutrophils (Bld) [#/Vol] 3.8 10*3/uL 2.0-7.7 [facility] Neutrophils/100 WBC (Bld) 61.4 % 47-70 [facility] Potassium [Moles/Vol] 4.6 mmol/L 3.5-5.1 [facility] Sodium [Moles/Vol] 143 mmol/L 136-145 [facility] WBC (Bld) [#/Vol] 6.2 10*3/uL 4.4-11.0 [facility] Blood erythrocytes count (nu mber/volume)Ordered By: Dr. Niño on 11-04-2022 RBC (Bld) [#/Vol] 4.62 10*6/uL 4.6-6.2 [facility] Blood hemoglobin measurement (mass/volume)Ordered By: Dr. Niño on 11-04-2022 Hemoglobin (Bld) [Mass/Vol] 14.2 g/dL 13.0-16.5 [facility] Blood lymphocytes/100 leukoc ytesOrdered By: Dr. Niño on 11-04-2022 Lymphocytes/100 WBC (Bld) 26.5 % 19-41 [facility] Blood monocytes/100 leukocyt esOrdered By: Dr. Niño on 11-04-2022 Monocytes/100 WBC (Bld) 10.5 % 0-10 [facility] Blood platelet mean volumeOr dered By: Dr. Niño on 11-04-2022 Platelet mean volume (Bld) [Entitic vol] 10.1 fL 6.2-12.0 [facility] Determination of erythrocyte mean corpuscular volume (MCV)Ordered By: Dr. Niño on 11-04-2022 MCV (RBC) [Entitic vol] 95.5 fL 80-94 [facility] Hematocrit Auto (Bld) [Volum e fraction]Ordered By: Dr. Niño on 11-04-2022 Hematocrit (Bld) [Volume fraction] 44.1 % 40-54 [facility] Laboratory - Chemistry and C hemistry - challengeOrdered By: Dr. Niño on 11-04-2022 CO2 [Moles/Vol] 19.0 mmol/L 21.0-32.0 [facility] Urea nitrogen/Creatinine [Mass ratio] 29.9 mg/mg 10-20 [facility] Laboratory - Hematology and Cell countsOrdered By: Dr. Niño on 11-04-2022 Erythrocyte distribution width (RBC) [Entitic vol] 45.1 fL 35.1-43.9 [facility] Erythrocyte distribution width (RBC) [Ratio] 12.9 % 11.6-14.6 [facility] Immature granulocytes/100 WBC (Bld) 0.300 % 0.0-0.9 [facility] Comment on above: IG% - Immature Granu locytes (promyelocytes, myelocytes and metamyelocytes) > 1% indicates that a LEFT SHIFT is Present. MCH (RBC) [Entitic mass] 30.7 pg 27.0-32.0 [facility] Nucleated RBC/100 WBC (Bld) [Ratio] 0 % 0-5 [facility] MCHC Auto (RBC) [Mass/Vol]Or dered By: Dr. Niño on 11-04-2022 MCHC (RBC) [Mass/Vol] 32.2 g/dL 32-36 [facility] No Panel InformationOrdered By: Dr. Niño on 11-04-2022 Estimated Creatinine Clearance Calc 60.33 ml/min [facility] Estimated GFR (MDRD) Amer 70 mL/min >60 [facility] Comment on above: GFR Calc Estimated GFR (MDRD) Non-Af Amer 58 mL/min >60 [facility] Comment on above: Non- GFR Calc Platelets bldOrdered By: Dr. Niño on 11-04-2022 Platelets (Bld) [#/Vol] 184 10*3/uL 150-450 [facility] Serum or plasma calcium regi urement (mass/volume)Ordered By: Dr. Niño on 11-04-2022 Calcium [Mass/Vol] 9.4 mg/dL 8.5-10.1 [facility] Serum or plasma creatinine m easurement (mass/volume)Ordered By: Dr. Niño on 11-04-2022 Creatinine [Mass/Vol] 1.37 mg/dL 0.70-1.30 [facility] Comment on above: The validity of the calculated GFR & GFRAA in patients over 70 years has not been determined. Clinical correlation is essential. Serum or plasma urea nitroge n measurement (mass/volume)Ordered By: Dr. Niño on 11-04-2022 Urea nitrogen [Mass/Vol] 41 mg/dL 7-18 [facility] Serum or plasma vancomycin m easurement (mass/volume)Ordered By: Dr. Smith on 11-04-2022 Vancomycin [Mass/Vol] 16.1 ug/mL 0.0-15.0 [facility] Comment on above: VANCOMYCIN STANDARD DRUG THERAPY: CRITICAL VALUE IS > 15.0 mg/L VANCOMYCIN HIGH INTENSITY THERAPY: CRITICAL VALUE IS > 20.0 mg/L PLEASE CONTACT PHARMACY SERVICES (#[id number]) FOR INTERPRETATIONOF RESULTS. THIS RESULT DOES NOT REPRESENT A PEAK OR TROUGHLEVEL FOR THIS DRUG. Thin prep Papanicolaou smear with manual screeningOrdered By: Dr. Niño on 11-04-2022 Thin prep Papanicolaou smear with manual screening 10 5-15 [facility] Gram stain for investigation of transfusion reactionOrdered By: Dr. Levy on 11-02-2022 Microscopic observation Gram stain Nom (Unsp spec) [facility] No Panel InformationOrdered By: Dr. Santiago on 11-02-2022 Bacteria Detection (PCR) Negative [facility] Absolute lymphocyte countOrd ered By: Dr. Santiago on 11-01-2022 Lymphocytes Auto (Unsp spec) [#/Vol] 1.35 10*3/uL 0.83-4.51 [facility] Basophil percentageOrdered B y: Dr. Santiago on 11-01-2022 Basophil percentage 0 SEEN /hpf 0-5 [facility] Basophils/100 WBC (Bld) 0.3 % 0-1 [facility] Bilirubin [Mass/Vol] 0.50 mg/dL 0.20-1.00 [facility] Comment on above: For patients on eltr ombopag therapy, use of Dimension Coldiron TBIL is not recommended. Chloride [Moles/Vol] 108 mmol/L 98-107 [facility] Eosinophils/100 WBC (Bld) 0.9 % 0-5 [facility] Glucose [Mass/Vol] 266 mg/dL 74-106 [facility] Comment on above: Glucose result great er than or equal to 200 mg/dLsuggests DIABETES MELLITUS per A.D.A. criteria. Lactate [Moles/Vol] 1.4 mmol/L 0.4-2.0 [facility] Neutrophils (Bld) [#/Vol] 4.3 10*3/uL 2.0-7.7 [facility] Neutrophils/100 WBC (Bld) 67.5 % 47-70 [facility] Potassium [Moles/Vol] 5.2 mmol/L 3.5-5.1 [facility] Comment on above: Slight Hemolysis, Re sult may be falsely increased. Protein [Mass/Vol] 7.2 g/dL 6.4-8.2 [facility] Sodium [Moles/Vol] 139 mmol/L 136-145 [facility] WBC (Bld) [#/Vol] 6.4 10*3/uL 4.4-11.0 [facility] Bilirubin Test strip Ql (U)O rdered By: Dr. Santiago on 11-01-2022 Bilirubin Ql (U) Negative Negative [facility] Blood erythrocytes count (nu mber/volume)Ordered By: Dr. Santiago on 11-01-2022 RBC (Bld) [#/Vol] 5.23 10*6/uL 4.6-6.2 [facility] Blood hemoglobin measurement (mass/volume)Ordered By: Dr. Santiago on 11-01-2022 Hemoglobin (Bld) [Mass/Vol] 15.9 g/dL 13.0-16.5 [facility] Blood lymphocytes/100 leukoc ytesOrdered By: Dr. Santiago on 11-01-2022 Lymphocytes/100 WBC (Bld) 21.1 % 19-41 [facility] Blood monocytes/100 leukocyt esOrdered By: Dr. Santiago on 11-01-2022 Monocytes/100 WBC (Bld) 9.7 % 0-10 [facility] Blood platelet mean volumeOr dered By: Dr. Santiago on 11-01-2022 Platelet mean volume (Bld) [Entitic vol] 9.9 fL 6.2-12.0 [facility] COVID-19 virus antigen assay Ordered By: Dr. Amor on 11-01-2022 SARS-CoV-2 (COVID-19) Ag IA.rapid Ql (Resp) [facility] Determination of erythrocyte mean corpuscular volume (MCV)Ordered By: Dr. Santiago on 11-01-2022 MCV (RBC) [Entitic vol] 95.0 fL 80-94 [facility] Erythrocyte sedimentation ra teOrdered By: Dr. Santiago on 11-01-2022 ESR (Bld) [Velocity] 10 mm/h 0-20 [facility] Glucose Glucometer (BldC) [M ass/Vol]Ordered By: Dr. Levy on 11-01-2022 Glucose [Mass/Vol] 264 mg/dL 74-106 [facility] Comment on above: MANAGEMENT OF PATIEN T CARE PER NURSING PROTOCOL Hematocrit Auto (Bld) [Volum e fraction]Ordered By: Dr. Santiago on 11-01-2022 Hematocrit (Bld) [Volume fraction] 49.7 % 40-54 [facility] INR in Blood by Coagulation assayOrdered By: Dr. Santiago on 11-01-2022 INR Coag (Bld) [Relative time] 1.1 {INR} [facility] Ketones Test strip Ql (U)Ord ered By: Dr. Santiago on 11-01-2022 Ketones Ql (U) Negative Negative [facility] Laboratory - Chemistry and C hemistry - challengeOrdered By: Dr. Santiago on 11-01-2022 ALP [Catalytic activity/Vol] 156 U/L 45-117 [facility] ALT [Catalytic activity/Vol] 41 U/L 16-61 [facility] CO2 [Moles/Vol] 25.0 mmol/L 21.0-32.0 [facility] Globulin (S) [Mass/Vol] 3.7 g/dL 2.2-4.2 [facility] Urea nitrogen/Creatinine [Mass ratio] 22.7 mg/mg 10-20 [facility] Laboratory - CoagulationOrde red By: Dr. Santiago on 11-01-2022 aPTT Coag (Bld) [Time] 28.9 s 24.1-36.2 [facility] PT Coag (PPP) [Time] 13.4 s 11.7-14.9 [facility] - Hematology and Cell countsOrdered By: Dr. Santiago on 11-01-2022 Erythrocyte distribution width (RBC) [Entitic vol] 44.9 fL 35.1-43.9 [facility] Erythrocyte distribution width (RBC) [Ratio] 12.7 % 11.6-14.6 [facility] Immature granulocytes/100 WBC (Bld) 0.500 % 0.0-0.9 [facility] Comment on above: IG% - Immature Granu locytes (promyelocytes, myelocytes and metamyelocytes) > 1% indicates that a LEFT SHIFT is Present. MCH (RBC) [Entitic mass] 30.4 pg 27.0-32.0 [facility] Nucleated RBC/100 WBC (Bld) [Ratio] 0 % 0-5 [facility] MCHC Auto (RBC) [Mass/Vol]Or dered By: Dr. Santiago on 11-01-2022 MCHC (RBC) [Mass/Vol] 32.0 g/dL 32-36 [facility] Mucus LM Ql (Urine sed)Order ed By: Dr. Santiago on 11-01-2022 Mucus Ql (Urine sed) 0 SEEN /hpf [facility] Nitrite Test strip Ql (U)Ord ered By: Dr. Santiago on 11-01-2022 Nitrite Ql (U) Negative Negative [facility] No Panel InformationOrdered By: Dr. Santiago on 11-01-2022 Estimated Creatinine Clearance Calc 50.71 ml/min [facility] Estimated GFR (MDRD) Amer 57 mL/min >60 [facility] Comment on above: GFR Calc Estimated GFR (MDRD) Non-Af Amer 47 mL/min >60 [facility] Comment on above: Non- GFR Calc Platelets bldOrdered By: Dr. Santiago on 11-01-2022 Platelets (Bld) [#/Vol] 199 10*3/uL 150-450 [facility] Protein Test strip Ql (U)Ord ered By: Dr. Santiago on 11-01-2022 Protein Ql (U) Negative Negative [facility] Serum or plasma C reactive p rotein measurement (mass/volume)Ordered By: Dr. Santiago on 11-01-2022 CRP [Mass/Vol] 10.80 mg/L 0.0-3.0 [facility] Comment on above: C-Reactive Protein ( CRP) provides useful information for thediagnosis, therapy and monitoring of inflammatory processesand associated diseases. For the evaluation of Relative Riskfor Cardiovascular Disease, a High Sensitivity CRP (HSCRP)should be ordered. Serum or plasma albumin regi urement (mass/volume)Ordered By: Dr. Santiago on 11-01-2022 Albumin [Mass/Vol] 3.5 g/dL 3.2-5.0 [facility] Serum or plasma albumin/glob ulin mass ratioOrdered By: Dr. Santiago on 11-01-2022 Albumin/Globulin [Mass ratio] 0.9 {ratio} 0.9-2.4 [facility] Serum or plasma calcium regi urement (mass/volume)Ordered By: Dr. Santiago on 11-01-2022 Calcium [Mass/Vol] 9.6 mg/dL 8.5-10.1 [facility] Serum or plasma creatinine m easurement (mass/volume)Ordered By: Dr. Santiago on 11-01-2022 Creatinine [Mass/Vol] 1.63 mg/dL 0.70-1.30 [facility] Comment on above: The validity of the calculated GFR & GFRAA in patients over 70 years has not been determined. Clinical correlation is essential. Serum or plasma urea nitroge n measurement (mass/volume)Ordered By: Dr. Santiago on 11-01-2022 Urea nitrogen [Mass/Vol] 37 mg/dL 7-18 [facility] Squamous epithelial cells de tection in urine sediment by light microscopyOrdered By: Dr. Santiago on 11-01-2022 Epithelial cells.squamous LM Ql (Urine sed) 0 SEEN /hpf 0-5 [facility] Thin prep Papanicolaou smear with manual screeningOrdered By: Dr. Santiago on 11-01-2022 Thin prep Papanicolaou smear with manual screening 23 U/L 15-37 [facility] Comment on above: Slight Hemolysis, Re sult may be falsely increased. Thin prep Papanicolaou smear with manual screening 6 5-15 [facility] Urine blood detectionOrdered By: Dr. Santiago on 11-01-2022 RBC Ql (U) 10 /ul Negative [facility] RBC Ql (U) 0 SEEN /hpf 0-5 [facility] Urine clarityOrdered By: Dr. Santiago on 11-01-2022 Clarity (U) Clear Clear [facility] Urine color determinationOrd ered By: Dr. Santiago on 11-01-2022 Color (U) Yellow Yellow [facility] Urine glucose detectionOrder ed By: Dr. Santiago on 11-01-2022 Glucose Ql (U) 1000 mg/dl Normal [facility] Urine leukocyte esterase det ection by dipstickOrdered By: Dr. Santiago on 11-01-2022 Leukocyte esterase Test strip Ql (U) Negative Negative [facility] Urine pHOrdered By: Dr. Jay ramirez on 11-01-2022 pH (U) 6.0 [pH] 5.0 - 8.0 [facility] Urine sediment bacteria coun t by microscopy (number/high power field)Ordered By: Dr. Santiago on 11-01-2022 Bacteria LM.HPF (Urine sed) [#/Area] 0 /[HPF] None Seen [facility] Urine specific gravity measu rementOrdered By: Dr. Santiago on 11-01-2022 Specific gravity (U) [Rel density] 1.030 1.002-1.030 [facility] Urobilinogen Auto test strip Ql (U)Ordered By: Dr. Santiago on 11-01-2022 Urobilinogen Ql (U) 1 mg/dl Normal [facility] Anaerobic cultureOrdered By: Dona Medina on 10-28-2022 Bacteria identified Anaer cx Nom (Unsp spec) No anaerobic bacteria isolated. [facility] Bacteria identified Cx Nom ( Wound)Ordered By: Dona Medina on 10-28-2022 Wound Culture Staphylococcus epidermidis [facility] Wound Culture Pseudomonas aeroginosa [facility] Gram stain for investigation of transfusion reactionOrdered By: Dona Medina on 10-26-2022 Microscopic observation Gram stain Nom (Unsp spec) [facility] PROTEIN CREATININE RATIOon 0 09-24-2022 Protein/Creatinine (U) [Mass ratio] 0.07 mg/mg <0.15 mg/mg [facility] Protein/Creatinine (U) [Mass ratio]on 09-24-2022 Creatinine (U) [Mass/Vol] 76.2 mg/dL 20.0 - 300.0 mg/dL [facility] Protein (U) [Mass/Vol] 5 mg/dL 0 - 2 0 mg/dL [facility] URINALYSIS, DIPSTICK ONLYon 09-24-2022 Bilirubin Ql (U) Negative Negative [facility] Clarity (Unsp spec) Clear Clear [facility] Color (U) Light Yellow Yellow [facility] Glucose Test strip (U) [Mass/Vol] 3+ Abnormal Trace, Negative [facility] Hemoglobin Ql (U) Negative Negative, Trace [facility] Ketones Ql (U) Negative Negative, Trace [facility] Leukocyte esterase Test strip Ql (U) Negative Negative, 25 Pam/mL [facility] Nitrite Ql (U) Negative Negative [facility] pH (U) 6.0 [pH] 5.0 - 8.0 [facility] Protein (U) [Mass/Vol] Negative Trace , Negative [facility] Specific gravity (U) [Rel density] 1.013 1.005 - 1.030 [facility] Urobilinogen Ql (U) Negative Negative [facility] Glucose Glucometer (BldC) [M ass/Vol]Ordered By: Dona Medina on 09-11-2022 Glucose [Mass/Vol] 247 mg/dL 74-106 [facility] Comment on above: MANAGEMENT OF PATIEN T CARE PER NURSING PROTOCOL Laboratory - Hematology and Cell countson 09-06-2022 HbA1c (Bld) [Mass fraction] 9.9 % [facility] Glucose Glucometer (BldC) [M ass/Vol]Ordered By: Dona Medina on 09-05-2022 Glucose [Mass/Vol] 176 mg/dL 74-106 [facility] Comment on above: MANAGEMENT OF PATIEN T CARE PER NURSING PROTOCOL Absolute lymphocyte countOrd ered By: Dr. Barroso on 08-28-2022 Lymphocytes Auto (Unsp spec) [#/Vol] 1.20 10*3/uL 0.83-4.51 [facility] Basophil percentageOrdered B y: Dr. Barroso on 08-28-2022 Basophils/100 WBC (Bld) 0.3 % 0-1 [facility] Bilirubin [Mass/Vol] 0.50 mg/dL 0.20-1.00 [facility] Comment on above: For patients on eltr ombopag therapy, use of Dimension Coldiron TBIL is not recommended. Chloride [Moles/Vol] 112 mmol/L 98-107 [facility] Eosinophils/100 WBC (Bld) 0.7 % 0-5 [facility] Glucose [Mass/Vol] 104 mg/dL 74-106 [facility] Comment on above: Fasting Glucose resu lt from 100 to 125 mg/dL suggests IMPAIRED HOMEOSTASIS per A.D.A. criteria. Neutrophils (Bld) [#/Vol] 8.3 10*3/uL 2.0-7.7 [facility] Neutrophils/100 WBC (Bld) 79.7 % 47-70 [facility] Potassium [Moles/Vol] 4.3 mmol/L 3.5-5.1 [facility] Protein [Mass/Vol] 7.3 g/dL 6.4-8.2 [facility] Sodium [Moles/Vol] 142 mmol/L 136-145 [facility] WBC (Bld) [#/Vol] 10.3 10*3/uL 4.4-11.0 [facility] Blood erythrocytes count (nu mber/volume)Ordered By: Dr. Barroso on 08-28-2022 RBC (Bld) [#/Vol] 5.13 10*6/uL 4.6-6.2 [facility] Blood hemoglobin measurement (mass/volume)Ordered By: Dr. Barroso on 08-28-2022 Hemoglobin (Bld) [Mass/Vol] 15.2 g/dL 13.0-16.5 [facility] Blood lymphocytes/100 leukoc ytesOrdered By: Dr. Barroso on 08-28-2022 Lymphocytes/100 WBC (Bld) 11.6 % 19-41 [facility] Blood monocytes/100 leukocyt esOrdered By: Dr. Barroso on 08-28-2022 Monocytes/100 WBC (Bld) 7.2 % 0-10 [facility] Blood platelet mean volumeOr dered By: Dr. Barroso on 08-28-2022 Platelet mean volume (Bld) [Entitic vol] 9.4 fL 6.2-12.0 [facility] Determination of erythrocyte mean corpuscular volume (MCV)Ordered By: Dr. Barroso on 08-28-2022 MCV (RBC) [Entitic vol] 92.6 fL 80-94 [facility] Glucose Glucometer (BldC) [M ass/Vol]Ordered By: Dr. Barroso on 08-28-2022 Glucose [Mass/Vol] 118 mg/dL 74-106 [facility] Comment on above: MANAGEMENT OF PATIEN T CARE PER NURSING PROTOCOL Glucose Glucometer (BldC) [M ass/Vol]on 08-28-2022 Glucose [Mass/Vol] 60 mg/dL 74-106 [facility] Work Phone: Comment on above: MANAGEMENT OF PATIEN T CARE PER NURSING PROTOCOL Hematocrit Auto (Bld) [Volum e fraction]Ordered By: Dr. Barroso on 08-28-2022 Hematocrit (Bld) [Volume fraction] 47.5 % 40-54 [facility] Laboratory - Chemistry and C hemistry - challengeOrdered By: Dr. Barroso on 08-28-2022 ALP [Catalytic activity/Vol] 174 U/L 45-117 [facility] ALT [Catalytic activity/Vol] 54 U/L 16-61 [facility] CO2 [Moles/Vol] 26.0 mmol/L 21.0-32.0 [facility] Globulin (S) [Mass/Vol] 3.8 g/dL 2.2-4.2 [facility] Urea nitrogen/Creatinine [Mass ratio] 23.6 mg/mg 10-20 [facility] Laboratory - Hematology and Cell countsOrdered By: Dr. Barroso on 08-28-2022 Erythrocyte distribution width (RBC) [Entitic vol] 44.8 fL 35.1-43.9 [facility] Erythrocyte distribution width (RBC) [Ratio] 13.2 % 11.6-14.6 [facility] Immature granulocytes/100 WBC (Bld) 0.500 % 0.0-0.9 [facility] Comment on above: IG% - Immature Granu locytes (promyelocytes, myelocytes and metamyelocytes) > 1% indicates that a LEFT SHIFT is Present. MCH (RBC) [Entitic mass] 29.6 pg 27.0-32.0 [facility] Nucleated RBC/100 WBC (Bld) [Ratio] 0 % 0-5 [facility] MCHC Auto (RBC) [Mass/Vol]Or dered By: Dr. Barroso on 08-28-2022 MCHC (RBC) [Mass/Vol] 32.0 g/dL 32-36 [facility] No Panel InformationOrdered By: Dr. Barroso on 08-28-2022 Estimated Creatinine Clearance Calc 57.40 ml/min [facility] Estimated GFR (MDRD) Amer 66 mL/min >60 [facility] Comment on above: GFR Calc Estimated GFR (MDRD) Non-Af Amer 54 mL/min >60 [facility] Comment on above: Non- GFR Calc Platelets bldOrdered By: Dr. Barroso on 08-28-2022 Platelets (Bld) [#/Vol] 210 10*3/uL 150-450 [facility] Serum or plasma albumin regi urement (mass/volume)Ordered By: Dr. Barroso on 08-28-2022 Albumin [Mass/Vol] 3.5 g/dL 3.2-5.0 [facility] Serum or plasma albumin/glob ulin mass ratioOrdered By: Dr. Barroso on 08-28-2022 Albumin/Globulin [Mass ratio] 0.9 {ratio} 0.9-2.4 [facility] Serum or plasma calcium regi urement (mass/volume)Ordered By: Dr. Barroso on 08-28-2022 Calcium [Mass/Vol] 9.4 mg/dL 8.5-10.1 [facility] Serum or plasma creatinine m easurement (mass/volume)Ordered By: Dr. Barroso on 08-28-2022 Creatinine [Mass/Vol] 1.44 mg/dL 0.70-1.30 [facility] Comment on above: The validity of the calculated GFR & GFRAA in patients over 70 years has not been determined. Clinical correlation is essential. Serum or plasma urea nitroge n measurement (mass/volume)Ordered By: Dr. Barroso on 08-28-2022 Urea nitrogen [Mass/Vol] 34 mg/dL 7-18 [facility] Thin prep Papanicolaou smear with manual screeningOrdered By: Dr. Barroso on 08-28-2022 Thin prep Papanicolaou smear with manual screening 26 U/L 15-37 [facility] Thin prep Papanicolaou smear with manual screening 4 5-15 [facility] Glucose Glucometer (BldC) [M ass/Vol]Ordered By: Dona Medina on 08-08-2022 Glucose [Mass/Vol] 197 mg/dL 74-106 [facility] Comment on above: MANAGEMENT OF PATIEN T CARE PER NURSING PROTOCOL PROTEIN CREATININE RATIOon 1 10-03-2021 Protein/Creatinine (U) [Mass ratio] 0.08 mg/mg <0.15 mg/mg [facility] Protein/Creatinine (U) [Mass ratio]on 08-03-2022 Creatinine (U) [Mass/Vol] 80.0 mg/dL 20.0 - 300.0 mg/dL [facility] Protein (U) [Mass/Vol] 6 mg/dL 0 - 2 0 mg/dL [facility] URINALYSIS, DIPSTICK ONLYon 08-03-2022 Bilirubin Ql (U) Negative Negative [facility] Clarity (Unsp spec) Clear Clear [facility] Color (U) Light Yellow Yellow [facility] Glucose Test strip (U) [Mass/Vol] 3+ Abnormal Negative [facility] Hemoglobin Ql (U) Trace Abnormal Negative [facility] Ketones Ql (U) Negative Negative [facility] Leukocyte esterase Test strip Ql (U) Negative Negative [facility] Nitrite Ql (U) Negative Negative [facility] pH (U) 5.5 [pH] 5.0 - 8.0 [facility] Protein (U) [Mass/Vol] Negative Negative [facility] Specific gravity (U) [Rel density] 1.015 1.005 - 1.030 [facility] Urobilinogen Ql (U) Negative Negative [facility] HEMOGLOBIN A1C (POC)on 07-13 HbA1c (Bld) [Mass fraction] 10.6 % Abnormal 4.2 - 5.6 % [facility] Glucose Glucometer (dC) [M ass/Vol]Ordered By: Dona Medina on 07-09-2022 Glucose [Mass/Vol] 227 mg/dL 74-106 [facility] Comment on above: MANAGEMENT OF PATIEN T CARE PER NURSING PROTOCOL PROTEIN CREATININE RATIOon 1 Protein/Creatinine (U) [Mass ratio] 0.12 mg/mg <0.15 mg/mg [facility] Protein/Creatinine (U) [Mass ratio]on 07-05-2022 Creatinine (U) [Mass/Vol] 65.0 mg/dL 20.0 - 300.0 mg/dL [facility] Protein (U) [Mass/Vol] 8 mg/dL 0 - 2 0 mg/dL [facility] URINALYSIS, DIPSTICK ONLYon 07-05-2022 Bilirubin Ql (U) Negative Negative [facility] Clarity (Unsp spec) Clear Clear [facility] Color (U) Light Yellow Yellow [facility] Glucose Test strip (U) [Mass/Vol] 4+ Abnormal Negative [facility] Hemoglobin Ql (U) Negative Negative [facility] Ketones Ql (U) Negative Negative [facility] Leukocyte esterase Test strip Ql (U) Negative Negative [facility] Nitrite Ql (U) Negative Negative [facility] pH (U) 6.0 [pH] 5.0 - 8.0 [facility] Protein (U) [Mass/Vol] Negative Negative [facility] Specific gravity (U) [Rel density] 1.015 1.005 - 1.030 [facility] Urobilinogen Ql (U) Negative Negative [facility] CBC W Auto Differential pane l (Bld)on 06-08-2022 Abs Immature Gran 0.08 k/uL <0.10 k/uL [facility] Basophils (Bld) [#/Vol] 0.04 10*3/uL <0.11 k/uL [facility] Basophils/100 WBC (Bld) 0.4 % [facility] Differential cell count method Nom (Bld) Auto [facility] Eosinophils (Bld) [#/Vol] <0.46 k/uL [facility] Eosinophils/100 WBC (Bld) 0.2 % [facility] Erythrocyte distribution width (RBC) [Ratio] 13.1 % 11.5 - 15.0 % [facility] Hematocrit (Bld) [Volume fraction] 49.2 % 39.0 - 51.0 % [facility] Hemoglobin (Bld) [Mass/Vol] 15.8 g/dL 13.0 - 17.0 g/dL [facility] Immature Gran % 0.7 % [facility] Lymphocytes (Bld) [#/Vol] 1.42 10*3/uL 1.00 - 4.00 k/uL [facility] Lymphocytes/100 WBC (Bld) 12.6 % [facility] MCH (RBC) [Entitic mass] 28.8 pg 26. 0 - 34.0 pg [facility] MCHC (RBC) [Mass/Vol] 32.1 g/dL 30.5 - 36.0 g/dL [facility] MCV (RBC) [Entitic vol] 89.6 fL 80.0 - 100.0 fL [facility] Monocytes (Bld) [#/Vol] 0.99 10*3/uL High <0.87 k/uL [facility] Monocytes/100 WBC (Bld) 8.8 % [facility] Neutrophils (Bld) [#/Vol] 8.70 10*3/uL High 1.45 - 7.50 k/uL [facility] Neutrophils/100 WBC (Bld) 77.3 % [facility] Nucleated RBC (Bld) [#/Vol] <0.01 k/uL [facility] Nucleated RBC/100 WBC (Bld) [Ratio] 0.0 /100 WBC [facility] Platelet mean volume (Bld) [Entitic vol] 9.8 fL 9.0 - 12.7 fL [facility] Platelets (Bld) [#/Vol] 273 10*3/uL 150 - 400 k/uL [facility] RBC (Bld) [#/Vol] 5.49 10*6/uL 4.20 - 6.0 0 m/uL [facility] WBC (Bld) [#/Vol] 11.25 10*3/uL High 3.70 - 11.00 k/uL [facility] CMV DNA DETECTION AND QUANTo n 06-08-2022 CMV DNA CARMEN+probe Qn (P) Not detected CMV DNA Not Detected [facility] Comprehensive metabolic 2000 panelon 06-08-2022 Albumin [Mass/Vol] 3.9 g/dL 3.9 - 4.9 g/dL [facility] ALP [Catalytic activity/Vol] 259 U/L High 38 - 113 U/L [facility] ALT [Catalytic activity/Vol] 62 U/L High 10 - 54 U/L [facility] Anion gap [Moles/Vol] 12 mmol/L 9 - 18 mmol/L [facility] AST [Catalytic activity/Vol] 39 U/L 14 - 40 U/L [facility] Bilirubin [Mass/Vol] 0.4 mg/dL 0.2 - 1 .3 mg/dL [facility] Calcium [Mass/Vol] 10.5 mg/dL High 8.5 - 10. 2 mg/dL [facility] Chloride [Moles/Vol] 102 mmol/L 97 - 10 5 mmol/L [facility] CO2 [Moles/Vol] 23 mmol/L 22 - 30 mmol/L [facility] Creatinine [Mass/Vol] 1.58 mg/dL High 0.73 - 1.22 mg/dL [facility] Estimated Glomerular Filtration Rate 52 mL/min/1.73m Low >=60 mL/min/1.73 m [facility] Glucose [Mass/Vol] 204 mg/dL High 74 - 99 mg/dL [facility] Potassium [Moles/Vol] 4.9 mmol/L 3.7 - 5.1 mmol/L [facility] Protein [Mass/Vol] 7.4 g/dL 6.3 - 8.0 g/dL [facility] Sodium [Moles/Vol] 137 mmol/L 136 - 144 mmol/L [facility] Urea nitrogen [Mass/Vol] 31 mg/dL High 9 - 24 mg/dL [facility] Laboratory - Microbiology an d Antimicrobial susceptibilityon 06-08-2022 BK virus DNA CARMEN+probe [#/Vol] Not detected BK Virus DNA Not Detected by PCR. [facility] MAGNESIUM BLDon 06-08-2022 Magnesium [Mass/Vol] 1.7 mg/dL 1.7 - 2 .3 mg/dL [facility] PHOSPHORUS INORGANICon 06-08 Phosphate [Mass/Vol] 2.0 mg/dL Low 2.7 - 4 .8 mg/dL [facility] PROTEIN CREATININE RATIOon 0 06-08-2022 Protein/Creatinine (U) [Mass ratio] 67 mg/g <150 mg/g [facility] Protein/Creatinine (U) [Mass ratio]on 06-08-2022 Creatinine (U) [Mass/Vol] 74.7 mg/dL 20.0 - 300.0 mg/dL [facility] Protein (U) [Mass/Vol] 5 mg/dL 0 - 2 0 mg/dL [facility] TACROLIMUS/[id number] BLon 06-08 Tacrolimus (Bld) [Mass/Vol] 9.9 ng/mL 5.0 - 20.0 ng/mL [facility] URINALYSIS, DIPSTICK ONLYon 06-08-2022 Bilirubin Ql (U) Negative [facility] Clarity (Unsp spec) Clear Clear [facility] Color (U) Light Yellow Yellow [facility] Glucose Test strip (U) [Mass/Vol] 4+ Abnormal Negative [facility] Hemoglobin Ql (U) 2+ Abnormal Negative [facility] Ketones Ql (U) Negative Negative [facility] Leukocyte esterase Test strip Ql (U) Negative Negative [facility] Nitrite Ql (U) Negative Negative [facility] pH (U) 6.0 [pH] 5.0 - 8.0 [facility] Protein (U) [Mass/Vol] Negative Negative [facility] Specific gravity (U) [Rel density] 1.016 1.005 - 1.030 [facility] Urobilinogen Ql (U) Negative Negative [facility] Basophil percentageon 2021 Bilirubin [Mass/Vol] 0.40 mg/dL 0.20-1.00 [facility] Work Phone: Comment on above: For patients on eltr ombopag therapy, use of Dimension Coldiron TBIL is not recommended. Chloride [Moles/Vol] 103 mmol/L 98-107 [facility] Work Phone: Glucose [Mass/Vol] 175 mg/dL 74-106 [facility] Work Phone: Comment on above: Fasting Glucose resu lt greater than or equal to 126 mg/dL suggests DIABETES MELLITUS per A.D.A. criteria. Potassium [Moles/Vol] 4.6 mmol/L 3.5-5.1 [facility] Work Phone: Protein [Mass/Vol] 7.8 g/dL 6.4-8.2 [facility] Work Phone: Sodium [Moles/Vol] 139 mmol/L 136-145 [facility] Work Phone: Erythrocyte sedimentation ra bk 05-31-2022 ESR (Bld) [Velocity] 30 mm/h 0-20 [facility] Work Phone: Laboratory - Chemistry and C hemistry - challengeon 05-31-2022 ALP [Catalytic activity/Vol] 258 U/L 45-117 [facility] Work Phone: ALT [Catalytic activity/Vol] 68 U/L 16-61 [facility] Work Phone: CO2 [Moles/Vol] 30.0 mmol/L 21.0-32.0 [facility] Work Phone: Globulin (S) [Mass/Vol] 4.6 g/dL 2.2-4.2 [facility] Work Phone: Urea nitrogen/Creatinine [Mass ratio] 21.9 mg/mg 10-20 [facility] Work Phone: No Panel Informationon 05-31 Estimated Creatinine Clearance Calc 51.66 ml/min [facility] Work Phone: Estimated GFR (MDRD) Amer 58 mL/min >60 [facility] Work Phone: Comment on above: GFR Calc Estimated GFR (MDRD) Non-Af Amer 48 mL/min >60 [facility] Work Phone: Comment on above: Non- GFR Calc Serum or plasma albumin regi urement (mass/volume)on 05-31-2022 Albumin [Mass/Vol] 3.2 g/dL 3.2-5.0 [facility] Work Phone: Serum or plasma albumin/glob ulin mass ratioon 05-31-2022 Albumin/Globulin [Mass ratio] 0.7 {ratio} 0.9-2.4 [facility] Work Phone: Serum or plasma calcium regi urement (mass/volume)on 05-31-2022 Calcium [Mass/Vol] 10.1 mg/dL 8.5-10.1 [facility] Work Phone: Serum or plasma creatinine m easurement (mass/volume)on 05-31-2022 Creatinine [Mass/Vol] 1.60 mg/dL 0.70-1.30 [facility] Work Phone: Comment on above: The validity of the calculated GFR & GFRAA in patients over 70 years has not been determined. Clinical correlation is essential. Serum or plasma transthyreti n measurement (mass/volume)on 05-31-2022 Prealbumin [Mass/Vol] 21.0 mg/dL 20.0-40.0 [facility] Work Phone: Serum or plasma urea nitroge n measurement (mass/volume)on 05-31-2022 Urea nitrogen [Mass/Vol] 35 mg/dL 7-18 [facility] Work Phone: Thin prep Papanicolaou smear with manual screeningon 05-31-2022 Thin prep Papanicolaou smear with manual screening 30 U/L 15-37 [facility] Work Phone: Thin prep Papanicolaou smear with manual screening 6 5-15 [facility] Work Phone: Whole blood hemoglobin A1c/t otal hemoglobin ratio (mass fraction)on 05-31-2022 HbA1c (Bld) [Mass fraction] 10.5 % 3.8-5.6 [facility] Work Phone: Comment on above: Normal < 5.7 % Predi abetic 5.7 - 6.4 % Diabetic >or= 6.5 % Please note range changes. Basophil percentageon 2021 Chloride [Moles/Vol] 104 mmol/L 98-107 [facility] Work Phone: Glucose [Mass/Vol] 361 mg/dL 74-106 [facility] Work Phone: Comment on above: Glucose result great er than or equal to 200 mg/dLsuggests DIABETES MELLITUS per A.D.A. criteria. Potassium [Moles/Vol] 5.0 mmol/L 3.5-5.1 [facility] Work Phone: Sodium [Moles/Vol] 137 mmol/L 136-145 [facility] Work Phone: WBC (Bld) [#/Vol] 6.7 10*3/uL 4.4-11.0 [facility] Work Phone: Blood erythrocytes count (nu mber/volume)on 04-30-2022 RBC (Bld) [#/Vol] 5.09 10*6/uL 4.6-6.2 [facility] Work Phone: Blood hemoglobin measurement (mass/volume)on 04-30-2022 Hemoglobin (Bld) [Mass/Vol] 15.0 g/dL 13.0-16.5 [facility] Work Phone: Blood platelet mean volumeon 04-30-2022 Platelet mean volume (Bld) [Entitic vol] 10.8 fL 6.2-12.0 [facility] Work Phone: Determination of erythrocyte mean corpuscular volume (MCV)on 04-30-2022 MCV (RBC) [Entitic vol] 93.3 fL 80-94 [facility] Work Phone: Erythrocyte sedimentation ra bk 04-30-2022 ESR (Bld) [Velocity] 42 mm[facility]: Hematocrit Auto (Bld) [Volum e fraction]on 04-30-2022 Hematocrit (Bld) [Volume fraction] 47.5 % 40-54 [facility] Work Phone: Laboratory - Chemistry and C hemistry - challengeon 04-30-2022 CO2 [Moles/Vol] 26.0 mmol/L 21.0-32.0 [facility] Work Phone: Urea nitrogen/Creatinine [Mass ratio] 22.2 mg/mg 10-20 [facility] Work Phone: Laboratory - Hematology and Cell countson 04-30-2022 Erythrocyte distribution width (RBC) [Entitic vol] 50.6 fL 35.1-43.9 [facility] Work Phone: Erythrocyte distribution width (RBC) [Ratio] 14.6 % 11.6-14.6 [facility] Work Phone: MCH (RBC) [Entitic mass] 29.5 pg 27.0-32.0 [facility] Work Phone: MCHC Auto (RBC) [Mass/Vol]on 04-30-2022 MCHC (RBC) [Mass/Vol] 31.6 g/dL 32-36 [facility] Work [facility]: No Panel Informationon 04-30 Estimated GFR (MDRD) Amer 61 mL/min >60 [facility] Work Phone: Comment on above: GFR Calc Estimated GFR (MDRD) Non-Af Amer 51 mL/min >60 [facility] Work Phone: Comment on above: Non- GFR Calc Platelets bldon 04-30-2022 Platelets (Bld) [#/Vol] 227 10*3/uL 150-450 [facility] Work Phone: Serum or plasma calcium regi urement (mass/volume)on 04-30-2022 Calcium [Mass/Vol] 9.4 mg/dL 8.5-10.1 [facility] Work Phone: Serum or plasma creatinine m easurement (mass/volume)on 04-30-2022 Creatinine [Mass/Vol] 1.53 mg/dL 0.70-1.30 [facility] Work Phone: Comment on above: The validity of the calculated GFR & GFRAA in patients over 70 years has not been determined. Clinical correlation is essential. Serum or plasma urea nitroge n measurement (mass/volume)on 04-30-2022 Urea nitrogen [Mass/Vol] 34 mg/dL 7-18 [facility] Work Phone: Thin prep Papanicolaou smear with manual screeningon 04-30-2022 Thin prep Papanicolaou smear with manual screening 7 5-15 [facility] Work Phone: Vancomycin troughon 04-30-20 Vancomycin trough [Mass/Vol] 11.0 ug/mL 5.0-15.0 [facility] Work Phone: Comment on above: VANCOMYCIN STANDARED DRUG THERAPY TROUGH LEVEL: 5.0 - 15.0 mg/L VANCOMYCIN HIGH INTENSITY THERAPY TROUGH LEVEL: 15.0 - 20.0 mg/L High Intensity therapy recommended for serious lifethreatening infections include:- Amhjwfrmss-Zbjvallgtznq-Hbgfvwcxy (Ventilator/Healtcare Associated)-Sepsis PLEASE CONTACT PHARMACY SERVICES (#[id number]) FOR INTERPRETATIONOF RESULTS. Serum or plasma vancomycin m easurement (mass/volume)on 04-23-2022 Vancomycin [Mass/Vol] 13.7 ug/mL 0.0-15.0 [facility] Work Phone: Comment on above: VANCOMYCIN STANDARD DRUG THERAPY: CRITICAL VALUE IS > 15.0 mg/L VANCOMYCIN HIGH INTENSITY THERAPY: CRITICAL VALUE IS > 20.0 mg/L PLEASE CONTACT PHARMACY SERVICES (#[id number]) FOR INTERPRETATIONOF RESULTS. THIS RESULT DOES NOT REPRESENT A PEAK OR TROUGHLEVEL FOR THIS DRUG. Basophil percentageon 2021 Chloride [Moles/Vol] 106 mmol/L 98-107 [facility] Work Phone: Glucose [Mass/Vol] 429 mg/dL 74-106 [facility] Work Phone: Comment on above: Glucose result great er than or equal to 200 mg/dLsuggests DIABETES MELLITUS per A.D.A. criteria. Potassium [Moles/Vol] 4.3 mmol/L 3.5-5.1 [facility] Work Phone: Sodium [Moles/Vol] 137 mmol/L 136-145 [facility] Work Phone: WBC (Bld) [#/Vol] 6.3 10*3/uL 4.4-11.0 [facility] Work Phone: Blood erythrocytes count (nu mber/volume)on 04-09-2022 RBC (Bld) [#/Vol] 4.71 10*6/uL 4.6-6.2 [facility] Work Phone: Blood hemoglobin measurement (mass/volume)on 04-09-2022 Hemoglobin (Bld) [Mass/Vol] 13.6 g/dL 13.0-16.5 [facility] Work Phone: Blood platelet mean volumeon 04-09-2022 Platelet mean volume (Bld) [Entitic vol] 10.6 fL 6.2-12.0 [facility] Work Phone: Determination of erythrocyte mean corpuscular volume (MCV)on 04-09-2022 MCV (RBC) [Entitic vol] 93.2 fL 80-94 [facility] Work Phone: Erythrocyte sedimentation ra bk 04-09-2022 ESR (Bld) [Velocity] 31 mm/h 0-20 [facility] Work Phone: Hematocrit Auto (Bld) [Volum e fraction]on 04-09-2022 Hematocrit (Bld) [Volume fraction] 43.9 % 40-54 [facility] Work Phone: Laboratory - Chemistry and C hemistry - challengeon 04-09-2022 CO2 [Moles/Vol] 27.0 mmol/L 21.0-32.0 [facility] Work Phone: Urea nitrogen/Creatinine [Mass ratio] 20.3 mg/mg 10-20 [facility] Work Phone: Laboratory - Hematology and Cell countson 04-09-2022 Erythrocyte distribution width (RBC) [Entitic vol] 48.0 fL 35.1-43.9 [facility] Work Phone: Erythrocyte distribution width (RBC) [Ratio] 14.2 % 11.6-14.6 [facility] Work Phone: MCH (RBC) [Entitic mass] 28.9 pg 27.0-32.0 [facility] Work Phone: MCHC Auto (RBC) [Mass/Vol]on 04-09-2022 MCHC (RBC) [Mass/Vol] 31.0 g/dL 32-36 [facility] Work Phone: No Panel Informationon 04-09 Estimated GFR (MDRD) Amer 64 mL/min >60 [facility] Work Phone: Comment on above: GFR Calc Estimated GFR (MDRD) Non-Af Amer 53 mL/min >60 [facility] Work Phone: Comment on above: Non- GFR Calc Platelets bldon 04-09-2022 Platelets (Bld) [#/Vol] 242 10*3/uL 150-450 [facility] Work Phone: Serum or plasma calcium regi urement (mass/volume)on 04-09-2022 Calcium [Mass/Vol] 8.9 mg/dL 8.5-10.1 [facility] Work Phone: Serum or plasma creatinine m easurement (mass/volume)on 04-09-2022 Creatinine [Mass/Vol] 1.48 mg/dL 0.70-1.30 [facility] Work Phone: Comment on above: The validity of the calculated GFR & GFRAA in patients over 70 years has not been determined. Clinical correlation is essential. Serum or plasma urea nitroge n measurement (mass/volume)on 04-09-2022 Urea nitrogen [Mass/Vol] 30 mg/dL 7-18 [facility] Work Phone: Thin prep Papanicolaou smear with manual screeningon 04-09-2022 Thin prep Papanicolaou smear with manual screening 4 5-15 [facility] Work Phone: Vancomycin troughon 04-09-20 22 Vancomycin trough [Mass/Vol] 15.1 ug/mL 5.0-15.0 [facility] Work Phone: Comment on above: VANCOMYCIN STANDARED DRUG THERAPY TROUGH LEVEL: 5.0 - 15.0 mg/L VANCOMYCIN HIGH INTENSITY THERAPY TROUGH LEVEL: 15.0 - 20.0 mg/L High Intensity therapy recommended for serious lifethreatening infections include:- Yujcezstsr-Runfnqslzqpv-Gghjyuzsj (Ventilator/Healtcare Associated)-Sepsis PLEASE CONTACT PHARMACY SERVICES (#[id number]) FOR INTERPRETATIONOF RESULTS. Basophil percentageon 2021 Chloride [Moles/Vol] 105 mmol/L 98-107 [facility] Work Phone: Glucose [Mass/Vol] 269 mg/dL 74-106 [facility] Work Phone: Comment on above: Glucose result great er than or equal to 200 mg/dLsuggests DIABETES MELLITUS per A.D.A. criteria. Potassium [Moles/Vol] 4.4 mmol/L 3.5-5.1 [facility] Work Phone: Sodium [Moles/Vol] 137 mmol/L 136-145 [facility] Work Phone: Laboratory - Chemistry and C hemistry - challengeon 04-05-2022 CO2 [Moles/Vol] 25.0 mmol/L 21.0-32.0 [facility] Work Phone: Urea nitrogen/Creatinine [Mass ratio] 26.1 mg/mg 10-20 [facility] Work Phone: No Panel Informationon 04-05 Estimated GFR (MDRD) Amer 67 mL/min >60 [facility] Work Phone: Comment on above: GFR Calc Estimated GFR (MDRD) Non-Af Amer 55 mL/min >60 [facility] Work Phone: Comment on above: Non- GFR Calc Serum or plasma calcium regi urement (mass/volume)on 04-05-2022 Calcium [Mass/Vol] 9.1 mg/dL 8.5-10.1 [facility] Work Phone: Serum or plasma creatinine m easurement (mass/volume)on 04-05-2022 Creatinine [Mass/Vol] 1.42 mg/dL 0.70-1.30 [facility] Work Phone: Comment on above: The validity of the calculated GFR & GFRAA in patients over 70 years has not been determined. Clinical correlation is essential. Serum or plasma urea nitroge n measurement (mass/volume)on 04-05-2022 Urea nitrogen [Mass/Vol] 37 mg/dL 7-18 [facility] Work Phone: Thin prep Papanicolaou smear with manual screeningon 04-05-2022 Thin prep Papanicolaou smear with manual screening 7 5-15 [facility] Work Phone: Vancomycin troughon 04-05-20 22 Vancomycin trough [Mass/Vol] 20.1 ug/mL 5.0-15.0 [facility] Work Phone: Comment on above: VANCOMYCIN STANDARED DRUG THERAPY TROUGH LEVEL: 5.0 - 15.0 mg/L VANCOMYCIN HIGH INTENSITY THERAPY TROUGH LEVEL: 15.0 - 20.0 mg/L High Intensity therapy recommended for serious lifethreatening infections include:- Dizencysar-Ebcjpijsyuco-Kealrtivh (Ventilator/Healtcare Associated)-Sepsis PLEASE CONTACT PHARMACY SERVICES (#[id number]) FOR INTERPRETATIONOF RESULTS. Basophil percentageon 2021 Chloride [Moles/Vol] 110 mmol/L 98-107 [facility] Work Phone: Glucose [Mass/Vol] 115 mg/dL 74-106 [facility] Work Phone: Comment on above: Fasting Glucose resu lt from 100 to 125 mg/dL suggests IMPAIRED HOMEOSTASIS per A.D.A. criteria. Potassium [Moles/Vol] 4.3 mmol/L 3.5-5.1 [facility] Work Phone: Comment on above: Moderate Hemolysis, Result may be falsely increased. Sodium [Moles/Vol] 139 mmol/L 136-145 [facility] Work Phone: WBC (Bld) [#/Vol] 9.0 10*3/uL 4.4-11.0 [facility] Work Phone: Blood erythrocytes count (nu mber/volume)on 04-02-2022 RBC (Bld) [#/Vol] 4.88 10*6/uL 4.6-6.2 [facility] Work Phone: Blood hemoglobin measurement (mass/volume)on 04-02-2022 Hemoglobin (Bld) [Mass/Vol] 14.2 g/dL 13.0-16.5 [facility] Work Phone: Blood platelet mean volumeon 04-02-2022 Platelet mean volume (Bld) [Entitic vol] 10.3 fL 6.2-12.0 [facility] Work Phone: Determination of erythrocyte mean corpuscular volume (MCV)on 04-02-2022 MCV (RBC) [Entitic vol] 94.3 fL 80-94 [facility] Work Phone: Erythrocyte sedimentation ra bk 04-02-2022 ESR (Bld) [Velocity] 48 mm/h 0-20 [facility] Work Phone: Hematocrit Auto (Bld) [Volum e fraction]on 04-02-2022 Hematocrit (Bld) [Volume fraction] 46.0 % 40-54 [facility] Work Phone: Laboratory - Chemistry and C hemistry - challengeon 04-02-2022 CO2 [Moles/Vol] 24.0 mmol/L 21.0-32.0 [facility] Work Phone: Urea nitrogen/Creatinine [Mass ratio] 19.6 mg/mg 10-20 [facility] Work Phone: Laboratory - Hematology and Cell countson 04-02-2022 Erythrocyte distribution width (RBC) [Entitic vol] 45.1 fL 35.1-43.9 [facility] Work Phone: Erythrocyte distribution width (RBC) [Ratio] 13.2 % 11.6-14.6 [facility] Work Phone: MCH (RBC) [Entitic mass] 29.1 pg 27.0-32.0 [facility] Work Phone: MCHC Auto (RBC) [Mass/Vol]on 04-02-2022 MCHC (RBC) [Mass/Vol] 30.9 g/dL 32-36 [facility] Work Phone: No Panel Informationon 04-02 Estimated GFR (MDRD) Amer 62 mL/min >60 [facility] Work Phone: Comment on above: GFR Calc Estimated GFR (MDRD) Non-Af Amer 51 mL/min >60 [facility] Work Phone: Comment on above: Non- GFR Calc Platelets bldon 04-02-2022 Platelets (Bld) [#/Vol] 277 10*3/uL 150-450 [facility] Work Phone: Serum or plasma calcium regi urement (mass/volume)on 04-02-2022 Calcium [Mass/Vol] 9.1 mg/dL 8.5-10.1 [facility] Work Phone: Serum or plasma creatinine m easurement (mass/volume)on 04-02-2022 Creatinine [Mass/Vol] 1.53 mg/dL 0.70-1.30 [facility] Work Phone: Comment on above: The validity of the calculated GFR & GFRAA in patients over 70 years has not been determined. Clinical correlation is essential. Serum or plasma urea nitroge n measurement (mass/volume)on 04-02-2022 Urea nitrogen [Mass/Vol] 30 mg/dL 7-18 [facility] Work Phone: Thin prep Papanicolaou smear with manual screeningon 04-02-2022 Thin prep Papanicolaou smear with manual screening 5 5-15 [facility] Work Phone: Vancomycin troughon 04-02-20 Vancomycin trough [Mass/Vol] 24.2 ug/mL 5.0-15.0 [facility] Work Phone: Comment on above: VANCOMYCIN STANDARED DRUG THERAPY TROUGH LEVEL: 5.0 - 15.0 mg/L VANCOMYCIN HIGH INTENSITY THERAPY TROUGH LEVEL: 15.0 - 20.0 mg/L High Intensity therapy recommended for serious lifethreatening infections include:- Puwitdqsqb-Fszzhpsjfqhx-Vyvkrznae (Ventilator/Healtcare Associated)-Sepsis PLEASE CONTACT PHARMACY SERVICES (#[id number]) FOR INTERPRETATIONOF RESULTS. Absolute lymphocyte counton 03-28-2022 Lymphocytes Auto (Unsp spec) [#/Vol] 0.96 10*3/uL 0.83-4.51 [facility] Work Phone: Basophil percentageon 2021 Basophils/100 WBC (Bld) 0.4 % 0-1 [facility] Work Phone: Chloride [Moles/Vol] 105 mmol/L 98-107 [facility]: Eosinophils/100 WBC (Bld) 1.2 % 0-5 [facility] Work Phone: Glucose [Mass/Vol] 336 mg/dL 74-106 [facility] Work Phone: Comment on above: Glucose result great er than or equal to 200 mg/dLsuggests DIABETES MELLITUS per A.D.A. criteria. Neutrophils (Bld) [#/Vol] 7.3 10*3/uL 2.0-7.7 [facility] Work Phone: Neutrophils/100 WBC (Bld) 78.9 % 47-70 [facility] Work Phone: Potassium [Moles/Vol] 4.3 mmol/L 3.5-5.1 [facility] Work Phone: Sodium [Moles/Vol] 139 mmol/L 136-145 [facility] Work Phone: WBC (Bld) [#/Vol] 9.2 10*3/uL 4.4-11.0 [facility] Work Phone: Blood erythrocytes count (nu mber/volume)on 03-28-2022 RBC (Bld) [#/Vol] 4.84 10*6/uL 4.6-6.2 [facility] Work Phone: Blood hemoglobin measurement (mass/volume)on 03-28-2022 Hemoglobin (Bld) [Mass/Vol] 13.8 g/dL 13.0-16.5 [facility] Work Phone: [phone] Blood lymphocytes/100 leukoc yteson 03-28-2022 Lymphocytes/100 WBC (Bld) 10.4 % 19-41 [facility] Work Phone: [phone] Blood monocytes/100 leukocyt eson 03-28-2022 Monocytes/100 WBC (Bld) 8.2 % 0-10 [facility] Work Phone: [phone] Blood platelet mean volumeon 03-28-2022 Platelet mean volume (Bld) [Entitic vol] 10.5 fL 6.2-12.0 [facility] Work Phone: Determination of erythrocyte mean corpuscular volume (MCV)on 03-28-2022 MCV (RBC) [Entitic vol] 90.7 fL 80-94 [facility] Work Phone: Glucose Glucometer (BldC) [M ass/Vol]on 03-28-2022 Glucose [Mass/Vol] 186 mg/dL 74-106 [facility] Work Phone: Comment on above: MANAGEMENT OF PATIEN T CARE PER NURSING PROTOCOL Hematocrit Auto (Bld) [Volum e fraction]on 03-28-2022 Hematocrit (Bld) [Volume fraction] 43.9 % 40-54 [facility] Work Phone: Laboratory - Chemistry and C hemistry - challengeon 03-28-2022 CO2 [Moles/Vol] 28.0 mmol/L 21.0-32.0 [facility] Work Phone: Urea nitrogen/Creatinine [Mass ratio] 13.9 mg/mg 10-20 [facility] Work Phone: Laboratory - Hematology and Cell countson 03-28-2022 Erythrocyte distribution width (RBC) [Entitic vol] 42.6 fL 35.1-43.9 [facility] Work Phone: Erythrocyte distribution width (RBC) [Ratio] 12.8 % 11.6-14.6 [facility] Work Phone: Immature granulocytes/100 WBC (Bld) 0.900 % 0.0-0.9 [facility] Work Phone: Comment on above: IG% - Immature Granu locytes (promyelocytes, myelocytes and metamyelocytes) > 1% indicates that a LEFT SHIFT is Present. MCH (RBC) [Entitic mass] 28.5 pg 27.0-32.0 [facility] Work Phone: Nucleated RBC/100 WBC (Bld) [Ratio] 0 % 0-5 [facility] Work Phone: MCHC Auto (RBC) [Mass/Vol]on 03-28-2022 MCHC (RBC) [Mass/Vol] 31.4 g/dL 32-36 [facility] Work Phone: No Panel Informationon 03-28 Estimated Creatinine Clearance Calc 67.75 ml/min [facility] Work Phone: Estimated GFR (MDRD) Amer 80 mL/min >60 [facility] Work Phone: Comment on above: GFR Calc Estimated GFR (MDRD) Non-Af Amer 66 mL/min >60 [facility] Work Phone: Comment on above: Non- GFR Calc Platelets bldon 03-28-2022 Platelets (Bld) [#/Vol] 297 10*3/uL 150-450 [facility] Work Phone: Serum or plasma calcium regi urement (mass/volume)on 03-28-2022 Calcium [Mass/Vol] 8.8 mg/dL 8.5-10.1 [facility] Work Phone: Serum or plasma creatinine m easurement (mass/volume)on 03-28-2022 Creatinine [Mass/Vol] 1.22 mg/dL 0.70-1.30 [facility] Work Phone: Comment on above: The validity of the calculated GFR & GFRAA in patients over 70 years has not been determined. Clinical correlation is essential. Serum or plasma urea nitroge n measurement (mass/volume)on 03-28-2022 Urea nitrogen [Mass/Vol] 17 mg/dL 03-26 [facility] Work Phone: Thin prep Papanicolaou smear with manual screeningon 03-28-2022 Thin prep Papanicolaou smear with manual screening 6 5-15 [facility] Work Phone: Vancomycin troughon 03-27-20 Vancomycin trough [Mass/Vol] 15.1 ug/mL 5.0-15.0 [facility] Work Phone: Comment on above: VANCOMYCIN STANDARED DRUG THERAPY TROUGH LEVEL: 5.0 - 15.0 mg/L VANCOMYCIN HIGH INTENSITY THERAPY TROUGH LEVEL: 15.0 - 20.0 mg/L High Intensity therapy recommended for serious lifethreatening infections include:- Ihkvtnvekd-Ydrhodoeexsm-Iosbdiwxx (Ventilator/Healtcare Associated)-Sepsis PLEASE CONTACT PHARMACY SERVICES (#[id number]) FOR INTERPRETATIONOF RESULTS. Basophil percentageon 2021 Bilirubin [Mass/Vol] 0.60 mg/dL 0.20-1.00 [facility] Work Phone: Comment on above: For patients on eltr ombopag therapy, use of Dimension Coldiron TBIL is not recommended. Protein [Mass/Vol] 5.8 g/dL 6.4-8.2 [facility] Work Phone: Laboratory - Chemistry and C hemistry - challengeon 03-26-2022 ALP [Catalytic activity/Vol] 175 U/L 45-117 [facility] Work Phone: ALT [Catalytic activity/Vol] 57 U/L 16-61 [facility] Work Phone: Globulin (S) [Mass/Vol] 3.8 g/dL 2.2-4.2 [facility] Work Phone: Serum or plasma albumin regi urement (mass/volume)on 03-26-2022 Albumin [Mass/Vol] 2.0 g/dL 3.2-5.0 [facility] Work Phone: Serum or plasma albumin/glob ulin mass ratioon 03-26-2022 Albumin/Globulin [Mass ratio] 0.5 {ratio} 0.9-2.4 [facility] Work Phone: Thin prep Papanicolaou smear with manual screeningon 03-26-2022 Thin prep Papanicolaou smear with manual screening 35 U/L 15-37 [facility] Work Phone: Absolute lymphocyte counton 03-24-2022 Lymphocytes Auto (Unsp spec) [#/Vol] 1.16 10*3/uL 0.83-4.51 [facility] Work Phone: Basophil percentageon 2021 Basophils/100 WBC (Bld) 0.2 % 0-1 [facility] Work Phone: Chloride [Moles/Vol] 100 mmol/L 98-107 [facility] Work Phone: Eosinophils/100 WBC (Bld) 0.1 % 0-5 [facility] Work Phone: Glucose [Mass/Vol] 397 mg/dL 74-106 [facility] Work Phone: Comment on above: Glucose result great er than or equal to 200 mg/dLsuggests DIABETES MELLITUS per A.D.A. criteria. Lactate [Moles/Vol] 1.9 mmol/L 0.4-2.0 [facility] Work Phone: Neutrophils (Bld) [#/Vol] 13.0 10*3/uL 2.0-7.7 [facility] Work Phone: Neutrophils/100 WBC (Bld) 80.9 % 47-70 [facility] Work Phone: Potassium [Moles/Vol] 4.7 mmol/L 3.5-5.1 [facility] Work Phone: [phone] Comment on above: Slight Hemolysis, Re sult may be falsely increased. Sodium [Moles/Vol] 132 mmol/L 136-145 [facility] Work Phone: WBC (Bld) [#/Vol] 16.1 10*3/uL 4.4-11.0 [facility] Work Phone: Blood erythrocytes count (nu mber/volume)on 03-24-2022 RBC (Bld) [#/Vol] 5.35 10*6/uL 4.6-6.2 [facility] Work Phone: Blood hemoglobin measurement (mass/volume)on 03-24-2022 Hemoglobin (Bld) [Mass/Vol] 15.4 g/dL 13.0-16.5 [facility] Work Phone: Blood lymphocytes/100 leukoc yteson 03-24-2022 Lymphocytes/100 WBC (Bld) 7.2 % 19-41 [facility] Work Phone: [phone] Blood manual differential co mment interpretation (narrative result)on 03-24-2022 Manual differential comment Vernon (Bld) [Interp] SCANNED [facility] Work Phone: Manual differential comment Vernon (Bld) [Interp] SCANNED [facility] Work Phone: Blood monocytes/100 leukocyt eson 03-24-2022 Monocytes/100 WBC (Bld) 10.9 % 0-10 [facility] Work Phone: Blood platelet mean volumeon 03-24-2022 Platelet mean volume (Bld) [Entitic vol] 10.1 fL 6.2-12.0 [facility] Work Phone: Determination of erythrocyte mean corpuscular volume (MCV)on 03-24-2022 MCV (RBC) [Entitic vol] 90.3 fL 80-94 [facility] Work Phone: Erythrocyte sedimentation ra bk 03-24-2022 ESR (Bld) [Velocity] 92 mm/h 0-20 [facility] Work Phone: Hematocrit Auto (Bld) [Volum e fraction]on 03-24-2022 Hematocrit (Bld) [Volume fraction] 48.3 % 40-54 [facility] Work Phone: Laboratory - Chemistry and C hemistry - challengeon 03-24-2022 CO2 [Moles/Vol] 24.0 mmol/L 21.0-32.0 [facility] Work Phone: Magnesium [Mass/Vol] 2.2 mg/dL 1.6-2.6 [facility] Work Phone: Comment on above: Slight Hemolysis, Re sult may be falsely increased. Urea nitrogen/Creatinine [Mass ratio] 14.6 mg/mg 10-20 [facility] Work Phone: Laboratory - Hematology and Cell countson 03-24-2022 Erythrocyte distribution width (RBC) [Entitic vol] 42.1 fL 35.1-43.9 [facility] Work Phone: [phone] Erythrocyte distribution width (RBC) [Ratio] 12.8 % 11.6-14.6 [facility] Work Phone: Immature granulocytes/100 WBC (Bld) 0.700 % 0.0-0.9 [facility] Work Phone: Comment on above: IG% - Immature Granu locytes (promyelocytes, myelocytes and metamyelocytes) > 1% indicates that a LEFT SHIFT is Present. MCH (RBC) [Entitic mass] 28.8 pg 27.0-32.0 [facility] Work Phone: Nucleated RBC/100 WBC (Bld) [Ratio] 0 % 0-5 [facility] Work Phone: MCHC Auto (RBC) [Mass/Vol]on 03-24-2022 MCHC (RBC) [Mass/Vol] 31.9 g/dL 32-36 [facility] Work Phone: No Panel Informationon 03-24 Methicillin-Resist S.aureus DNA PCR Negative Negative [facility] Work Phone: Estimated Creatinine Clearance Calc 36.57 ml/min [facility] Work Phone: Estimated GFR (MDRD) Amer 39 mL/min >60 [facility] Work Phone: Comment on above: GFR Calc Estimated GFR (MDRD) Non-Af Amer 32 mL/min >60 [facility] Work Phone: Comment on above: Non- GFR Calc Tacrolimus (Prograf) Level 14.1 ng/mL 2.0-20.0 [facility] Work Phone: Comment on above: Trough (immediately following transplant) 15.0 Trough (steady state, 2 weeks or more after transplant): 3.0 - 8.0 Performed by LC-MS/MS technology.Performed at: [address] [id number] Director: Zechariah Cotton MD, Phone: [phone] Platelets bldon 03-24-2022 Platelets (Bld) [#/Vol] 249 10*3/uL 150-450 [facility] Work Phone: Review by pathologiston 03-09 Pathologist review Vernon (Unsp spec) [Interp] Reviewed [facility] Work Phone: Comment on above: Previous reported re sult: Eri harley Edited by: RGOOD on 03/26/22:1201Neutrophilic leukocytosis.Clinical correlation suggested.Robbie Castro D.O. 03/26/22 AMENDED REPORT 03/26/22 1201 PATH REV previously reported as: Eri harley Pathologist review Vernon (Unsp spec) [Interp] Eri souza [facility] Work Phone: Serum or plasma C reactive p rotein measurement (mass/volume)on 03-24-2022 CRP [Mass/Vol] 187.00 mg/L 0.0-3.0 [facility] Work Phone: Comment on above: C-Reactive Protein ( CRP) provides useful information for thediagnosis, therapy and monitoring of inflammatory processesand associated diseases. For the evaluation of Relative Riskfor Cardiovascular Disease, a High Sensitivity CRP (HSCRP)should be ordered. Serum or plasma calcium regi urement (mass/volume)on 03-24-2022 Calcium [Mass/Vol] 9.6 mg/dL 8.5-10.1 [facility] Work Phone: Serum or plasma creatinine m easurement (mass/volume)on 03-24-2022 Creatinine [Mass/Vol] 2.26 mg/dL 0.70-1.30 [facility] Work Phone: Comment on above: The validity of the calculated GFR & GFRAA in patients over 70 years has not been determined. Clinical correlation is essential. Serum or plasma urea nitroge n measurement (mass/volume)on 03-24-2022 Urea nitrogen [Mass/Vol] 33 mg/dL 7-18 [facility] Work Phone: Staphylococcus aureus DNA de tection by probe and target amplification methodon 03-24-2022 S. aureus DNA CARMEN+probe Ql (Unsp spec) Positive Negative [facility] Work Phone: Thin prep Papanicolaou smear with manual screeningon 03-24-2022 Thin prep Papanicolaou smear with manual screening 8 5-15 [facility] Work Phone: Whole blood hemoglobin A1c/t otal hemoglobin ratio (mass fraction)on 03-24-2022 HbA1c (Bld) [Mass fraction] 10.5 % 3.8-5.6 [facility] Work Phone: Comment on above: Normal < 5.7 % Predi abetic 5.7 - 6.4 % Diabetic >or= 6.5 % Please note range changes. URINALYSIS, DIPSTICK ONLYon 03-08-2022 Bilirubin Ql (U) Negative Negative [facility] Clarity (Unsp spec) Clear Clear Primitivo [facility] Color (U) Light Yellow Yellow [facility] Glucose Test strip (U) [Mass/Vol] 4+ Abnormal Negative [facility] Hemoglobin Ql (U) 1+ Abnormal Negative [facility] Ketones Ql (U) Negative Negative [facility] Leukocyte esterase Test strip Ql (U) Negative Negative [facility] Nitrite Ql (U) Negative Negative [facility] pH (U) 5.5 [pH] 5.0 - 8.0 [facility] Protein (U) [Mass/Vol] Negative Negative [facility] Specific gravity (U) [Rel density] 1.015 1.005 - 1.030 [facility] Urob[facility] Ql (U) Negative Negative [facility] URINALYSIS, DIPSTICK ONLYon 12-08-2021 Bilirubin Ql (U) Negative Negative [facility] Clarity (Unsp spec) Clear Clear Primitivo [facility] Color (U) Light Yellow Yellow [facility] Glucose Test strip (U) [Mass/Vol] 4+ Abnormal Negative [facility] Hemoglobin Ql (U) 2+ Abnormal Negative [facility] Ketones Ql (U) Negative Negative [facility] Leukocyte esterase Test strip Ql (U) Negative Negative [facility] Nitrite Ql (U) Negative Negative [facility] pH (U) 6.0 [pH] 5.0 - 8.0 [facility] Protein (U) [Mass/Vol] Negative Negative [facility] Specific gravity (U) [Rel density] 1.013 1.005 - 1.030 [facility] Urobilinogen Ql (U) 1+ Abnormal Negative Primitivo [facility] Absolute lymphocyte counton 12-04-2021 Lymphocytes Auto (Unsp spec) [#/Vol] 1.18 10*3/uL 0.83-4.51 [facility] Work Phone: Bacteria identified Anaer cx Nom (Unsp spec)on 12-04-2021 Anaerobic Culture Prevotella bivia [facility] Work Phone: Anaerobic Culture Anaerobic cocci [facility] Work Phone: Bacteria identified Cx Nom ( Wound)on 12-04-2021 Wound Culture Enterococcus faecalis [facility] Work Phone: Wound Culture Staphylococcus homin is hominis [facility] Work Phone: Wound Culture Corynebacterium amycolatum [facility] Work Phone: Wound Culture Streptococcus mitis/ oralis [facility] Work Phone: Wound Culture Actinomyces odontolyticus [facility] Work Phone: Basophil percentageon 2021 Basophils/100 WBC (Bld) 0.1 % 0-1 [facility] Work Phone: Bilirubin [Mass/Vol] 0.30 mg/dL 0.20-1.00 [facility] Work Phone: Comment on above: For patients on eltr ombopag therapy, use of Dimension Coldiron TBIL is not recommended. Chloride [Moles/Vol] 110 mmol/L 98-107 [facility] Work Phone: Eosinophils/100 WBC (Bld) 0.4 % 0-5 [facility] Work Phone: Glucose [Mass/Vol] 211 mg/dL 74-106 [facility] Work Phone: Comment on above: Glucose result great er than or equal to 200 mg/dLsuggests DIABETES MELLITUS per A.D.A. criteria. Neutrophils (Bld) [#/Vol] 6.1 10*3/uL 2.0-7.7 [facility] Work Phone: Neutrophils/100 WBC (Bld) 75.1 % 47-70 [facility] Work Phone: Potassium [Moles/Vol] 4.6 mmol/L 3.5-5.1 [facility] [place] [place] Work Phone: Protein [Mass/Vol] 7.0 g/dL 6.4-8.2 [facility]: [phone] Sodium [Moles/Vol] 139 mmol/L 136-145 [facility] Work Phone: WBC (Bld) [#/Vol] 8.1 10*3/uL 4.4-11.0 [facility] [place] [place] Work Phone: Blood erythrocytes count (nu mber/volume)on 12-04-2021 RBC (Bld) [#/Vol] 5.23 10*6/uL 4.6-6.2 [facility]: Blood hemoglobin measurement (mass/volume)on 12-04-2021 Hemoglobin (Bld) [Mass/Vol] 15.9 g/dL 13.0-16.5 [facility] Work Phone: Blood lymphocytes/100 leukoc yteson 12-04-2021 Lymphocytes/100 WBC (Bld) 14.5 % 19-41 [facility] Work Phone: Blood monocytes/100 leukocyt eson 12-04-2021 Monocytes/100 WBC (Bld) 9.7 % 0-10 [facility] Work Phone: Blood platelet mean volumeon 12-04-2021 Platelet mean volume (Bld) [Entitic vol] 10.0 fL 6.2-12.0 [facility] Work Phone: Determination of erythrocyte mean corpuscular volume (MCV)on 12-04-2021 MCV (RBC) [Entitic vol] 93.1 fL 80-94 [facility] Work Phone: Erythrocyte sedimentation ra bk 12-04-2021 ESR (Bld) [Velocity] 38 mm[facility]h 0[facility]: Gram stain for investigation of transfusion reactionon 12-04-2021 Microscopic observation Gram stain Nom (Unsp spec) [facility] Work Phone: Hematocrit Auto (Bld) [Volum e fraction]on 12-04-2021 Hematocrit (Bld) [Volume fraction] 48.7 % 40-54 [facility] Work Phone: Laboratory - Chemistry and C hemistry - challengeon 12-04-2021 ALP [Catalytic activity/Vol] 161 U/L 45-117 [facility] Work Phone: ALT [Catalytic activity/Vol] 49 U/L 16-61 [facility] Work Phone: CO2 [Moles/Vol] 23.0 mmol/L 21.0-32.0 [facility] Work Phone: Globulin (S) [Mass/Vol] 3.6 g/dL 2.2-4.2 [facility] Work Phone: Urea nitrogen/Creatinine [Mass ratio] 29.3 mg/mg 10-20 [facility] Work Phone: Laboratory - Hematology and Cell countson 12-04-2021 Erythrocyte distribution width (RBC) [Entitic vol] 45.3 fL 35.1-43.9 [facility] Work Phone: Erythrocyte distribution width (RBC) [Ratio] 13.2 % 11.6-14.6 [facility] Work Phone: Immature granulocytes/100 WBC (Bld) 0.200 % 0.0-0.9 [facility] Work Phone: Comment on above: IG% - Immature Granu locytes (promyelocytes, myelocytes and metamyelocytes) > 1% indicates that a LEFT SHIFT is Present. MCH (RBC) [Entitic mass] 30.4 pg 27.0-32.0 [facility] Work Phone: Nucleated RBC/100 WBC (Bld) [Ratio] 0 % 0-5 [facility] Work Phone: MCHC Auto (RBC) [Mass/Vol]on 12-04-2021 MCHC (RBC) [Mass/Vol] 32.6 g/dL 32-36 [facility] Work Phone: No Panel Informationon 12-04 Estimated GFR (MDRD) Amer 72 mL/min >60 [facility] Work Phone: Comment on above: GFR Calc Estimated GFR (MDRD) Non-Af Amer 60 mL/min >60 [facility] Work Phone: Comment on above: Non- GFR Calc Methicillin-Resist S.aureus DNA PCR Negative Negative [facility] Work Phone: Platelets bldon 12-04-2021 Platelets (Bld) [#/Vol] 226 10*3/uL 150-450 [facility] Work Phone: Serum or plasma C reactive p rotein measurement (mass/volume)on 12-04-2021 CRP [Mass/Vol] 12.60 mg/L 0.0-3.0 [facility] Work Phone: Comment on above: C-Reactive Protein ( CRP) provides useful information for thediagnosis, therapy and monitoring of inflammatory processesand associated diseases. For the evaluation of Relative Riskfor Cardiovascular Disease, a High Sensitivity CRP (HSCRP)should be ordered. Serum or plasma albumin regi urement (mass/volume)on 12-04-2021 Albumin [Mass/Vol] 3.4 g/dL 3.2-5.0 [facility] Work Phone: Serum or plasma albumin/glob ulin mass ratioon 12-04-2021 Albumin/Globulin [Mass ratio] 0.9 {ratio} 0.9-2.4 [facility] Work Phone: Serum or plasma calcium regi urement (mass/volume)on 12-04-2021 Calcium [Mass/Vol] 9.2 mg/dL 8.5-10.1 [facility] Work Phone: Serum or plasma creatinine m easurement (mass/volume)on 12-04-2021 Creatinine [Mass/Vol] 1.33 mg/dL 0.70-1.30 [facility] Work Phone: Comment on above: The validity of the calculated GFR & GFRAA in patients over 70 years has not been determined. Clinical correlation is essential. Serum or plasma urea nitroge n measurement (mass/volume)on 12-04-2021 Urea nitrogen [Mass/Vol] 39 mg/dL 7-18 [facility] Work Phone: Staphylococcus aureus DNA de tection by probe and target amplification methodon 12-04-2021 S. aureus DNA CARMEN+probe Ql (Unsp spec) Positive Negative [facility] Work Phone: Thin prep Papanicolaou smear with manual screeningon 12-04-2021 Thin prep Papanicolaou smear with manual screening 31 U/L 15-37 [facility] Work Phone: Thin prep Papanicolaou smear with manual screening 6 5-15 [facility] Work Phone: Whole blood hemoglobin A1c/t otal hemoglobin ratio (mass fraction)on 12-04-2021 HbA1c (Bld) [Mass fraction] 8.1 % 3.8-5.6 [facility] Work Phone: Comment on above: Normal < 5.7 % Predi abetic 5.7 - 6.4 % Diabetic >or= 6.5 % Please note range changes. Absolute lymphocyte counton 09-20-2021 Lymphocytes Auto (Unsp spec) [#/Vol] 0.44 10*3/uL 0.83-4.51 [facility] Work Phone: Basophil percentageon 2021 Basophils/100 WBC (Bld) 0.2 % 0-1 [facility] Work Phone: Chloride [Moles/Vol] 113 mmol/L 98-107 [facility] Work Phone: Eosinophils/100 WBC (Bld) 0.0 % 0-5 [facility] Work Phone: Glucose [Mass/Vol] 241 mg/dL 74-106 [facility] Work Phone: Comment on above: Glucose result great er than or equal to 200 mg/dLsuggests DIABETES MELLITUS per A.D.A. criteria.Please note revised GLUCOSE reference range effective 2017. Neutrophils (Bld) [#/Vol] 10.5 10*3/uL 2.0-7.7 [facility] Work Phone: Neutrophils/100 WBC (Bld) 90.2 % 47-70 [facility] Work Phone: Potassium [Moles/Vol] 4.9 mmol/L 3.5-5.1 [facility] [place] [place] Work Phone: Sodium [Moles/Vol] 136 mmol/L 136-145 [facility] Work Phone: WBC (Bld) [#/Vol] 11.6 10*3/uL 4.4-11.0 [facility] Work Phone: [phone] Blood erythrocytes count (nu mber/volume)on 09-20-2021 RBC (Bld) [#/Vol] 5.74 10*6/uL 4.6-6.2 [facility] Work Phone: Blood hemoglobin measurement (mass/volume)on 09-20-2021 Hemoglobin (Bld) [Mass/Vol] 16.9 g/dL 13.0-16.5 [facility] Work Phone: Blood lymphocytes/100 leukoc yteson 09-20-2021 Lymphocytes/100 WBC (Bld) 3.8 % 19-41 [facility] Work Phone: Blood monocytes/100 leukocyt eson 09-20-2021 Monocytes/100 WBC (Bld) 5.4 % 0-10 [facility] Work Phone: Blood platelet mean volumeon 09-20-2021 Platelet mean volume (Bld) [Entitic vol] 11.8 fL 6.2-12.0 [facility] Work Phone: Determination of erythrocyte mean corpuscular volume (MCV)on 09-20-2021 MCV (RBC) [Entitic vol] 92.3 fL 80-94 [facility] Work Phone: Glucose Glucometer (BldC) [M ass/Vol]on 09-20-2021 Glucose [Mass/Vol] 294 mg/dL 70-110 [facility] Work Phone: Comment on above: MANAGEMENT OF PATIEN T CARE PER NURSING PROTOCOL Hematocrit Auto (Bld) [Volum e fraction]on 09-20-2021 Hematocrit (Bld) [Volume fraction] 53.0 % 40-54 [facility] Work Phone: Laboratory - Chemistry and C hemistry - challengeon 09-20-2021 CO2 [Moles/Vol] 16.0 mmol/L 21.0-32.0 [facility] Work Phone: Urea nitrogen/Creatinine [Mass ratio] 34.2 mg/mg 10-20 [facility] Work Phone: Laboratory - Hematology and Cell countson 09-20-2021 Erythrocyte distribution width (RBC) [Entitic vol] 39.8 fL 35.1-43.9 [facility] Work Phone: Erythrocyte distribution width (RBC) [Ratio] 11.7 % 11.6-14.6 [facility] Work Phone: Immature granulocytes/100 WBC (Bld) 0.400 % 0.0-0.9 [facility] Work Phone: Comment on above: IG% - Immature Granu locytes (promyelocytes, myelocytes and metamyelocytes) > 1% indicates that a LEFT SHIFT is Present. MCH (RBC) [Entitic mass] 29.4 pg 27.0-32.0 [facility] Work Phone: Nucleated RBC/100 WBC (Bld) [Ratio] 0 % 0-5 [facility] Work Phone: MCHC Auto (RBC) [Mass/Vol]on 09-20-2021 MCHC (RBC) [Mass/Vol] 31.9 g/dL 32-36 [facility] Work Phone: No Panel Informationon 09-20 Estimated Creatinine Clearance Calc 51.93 ml/min [facility] Work Phone: Estimated GFR (MDRD) Amer 58 mL/min >60 [facility] Work Phone: Comment on above: GFR Calc Estimated GFR (MDRD) Non-Af Amer 48 mL/min >60 [facility] Work Phone: Comment on above: Non- GFR Calc Platelets bldon 09-20-2021 Platelets (Bld) [#/Vol] 154 10*3/uL 150-450 [facility] Work Phone: Serum or plasma calcium regi urement (mass/volume)on 09-20-2021 Calcium [Mass/Vol] 7.7 mg/dL 8.5-10.1 [facility] [place] [place] Work Phone: Serum or plasma creatinine m easurement (mass/volume)on 09-20-2021 Creatinine [Mass/Vol] 1.61 mg/dL 0.70-1.30 [facility] Work Phone: Comment on above: The validity of the calculated GFR & GFRAA in patients over 70 years has not been determined. Clinical correlation is essential. Serum or plasma urea nitroge n measurement (mass/volume)on 09-20-2021 Urea nitrogen [Mass/Vol] 55 mg/dL 7-18 [facility] Work Phone: Thin prep Papanicolaou smear with manual screeningon 09-20-2021 Thin prep Papanicolaou smear with manual screening 7 5-15 [facility] Work Phone: Blood mireya cells detection b y light microscopyon 09-19-2021 [place] cells LM Ql (Bld) 1+ Wo freddy [facility] [place], [place] Work Phone: Basophil percentageon 2021 Bilirubin [Mass/Vol] 0.50 mg/dL 0.20-1.[address] [facility] [address] [facility] [place] [place] Work Phone: Comment on above: For patients on eltr ombopag therapy, use of Dimension Coldiron TBIL is not recommended. Lactate [Moles/Vol] 1.2 mmol/L 0.4-2.0 [facility] [place] [place] Work Phone: Protein [Mass/Vol] 5.8 g/dL 6.4-8.2 [facility] [place] [place] Work Phone: Laboratory - Chemistry and C hemistry - challengeon 09-18-2021 ALP [Catalytic activity/Vol] 138 U/L 45-117 [facility] Work Phone: ALT [Catalytic activity/Vol] 76 U/L 16-61 [facility] Work Phone: Globulin (S) [Mass/Vol] 3.1 g/dL 2.2-4.2 [facility] Work Phone: Serum or plasma albumin regi urement (mass/volume)on 09-18-2021 Albumin [Mass/Vol] 2.7 g/dL 3.2-5.0 [facility] Work Phone: Serum or plasma albumin/glob ulin mass ratioon 09-18-2021 Albumin/Globulin [Mass ratio] 0.9 {ratio} 0.9-2.4 [facility] Work Phone: Thin prep Papanicolaou smear with manual screeningon 09-18-2021 Thin prep Papanicolaou smear with manual screening 54 U/L 15-37 [facility] Work Phone: Blood manual differential co mment interpretation (narrative result)on 09-17-2021 Manual differential comment Vernon (Bld) [Interp] SCANNED [facility] Work Phone: Blood platelet adequacy dete ction by light microscopyon 09-17-2021 Platelets LM Ql (Bld) SLT DEC ADEQ [facility] Work Phone: Direct bilirubinon 2 Bilirubin.direct [Mass/Vol] 0.25 mg/dL 0.00-0.30 [facility] Work Phone: Laboratory - Microbiology an d Antimicrobial susceptibilityon 09-17-2021 Bacteria identified Cx Nom (Bld) No growth in 5 days. [facility] Work Phone: No Panel Informationon 09-17 D-Dimer Quantitative (PE/DVT) 1.02 FEU/ug/m 0.27-0.49 [facility] Work Phone: Comment on above: D-Dimer ELEVATED (>0 .49): Additional studies and clinicalassessments are indicated to conclude diagnosis of:Deep Vein Thrombosis (DVT) or Pulmonary Embolism (PE)CRITICAL VALUE VERIFIED. CALLED TO POPEYE PEREZ RN09/17/21 2144 Sarah Cuellar.RESULTS READ BACK BY SAME. Troponin I High Sensitivity 21 pg/mL 3.0-78.0 [facility] Work Phone: Comment on above: Please Note: New Isha t Units and Gender Specific Reference Ranges. For more information see Policy Stat Procedure Coldiron High Sensitivity Troponin (TNIH) and attachments. RBC morphologyon 09-17-2021 RBC morphology finding Nom (Bld) NORM C+C NORMAL NORM C&C [facility] Work Phone: Absolute lymphocyte counton 09-14-2021 Lymphocytes Auto (Unsp spec) [#/Vol] 0.54 10*3/uL 0.83-4.51 [facility] Work Phone: Basophil percentageon 2021 Basophil percentage 0 SEEN /hpf [facility] Work Phone: Basophils/100 WBC (Bld) 0.2 % 0-1 [facility] Work Phone: [phone] Chloride [Moles/Vol] 107 mmol/L 98-107 [facility] Work Phone: Eosinophils/100 WBC (Bld) 0.2 % 0-5 [facility] Work Phone: Glucose [Mass/Vol] 98 mg/dL 74-106 [facility] Work Phone: Comment on above: Please note revised GLUCOSE reference range effective 2017. Lactate [Moles/Vol] 1.1 mmol/L 0.4-2.0 [facility] Work Phone: Neutrophils (Bld) [#/Vol] 4.4 10*3/uL 2.0-7.7 [facility] Work Phone: Neutrophils/100 WBC (Bld) 79.3 % 47-70 [facility] Work Phone: [phone] Potassium [Moles/Vol] 4.3 mmol/L 3.5-5.1 [facility] Work Phone: Sodium [Moles/Vol] 139 mmol/L 136-145 [facility] Work Phone: WBC (Bld) [#/Vol] 5.5 10*3/uL 4.4-11.0 [facility] [place] [place] Work Phone: Bilirubin Test strip Ql (U)o n 09-14-2021 Bilirubin Ql (U) Negative Negative [facility] Work Phone: Blood erythrocytes count (nu mber/volume)on 09-14-2021 RBC (Bld) [#/Vol] 5.61 10*6/uL 4.6-6.2 [facility] Work [facility]: Blood hemoglobin measurement (mass/volume)on 09-14-2021 Hemoglobin (Bld) [Mass/Vol] 17.2 g/dL 13.0-16.5 [facility] Work Phone: Blood lymphocytes/100 leukoc yteson 09-14-2021 Lymphocytes/100 WBC (Bld) 9.9 % 19-41 [facility] Work Phone: Blood manual differential co mment interpretation (narrative result)on 09-14-2021 Manual differential comment Vernon (Bld) [Interp] SCANNED [facility] Work Phone: Blood monocytes/100 leukocyt eson 09-14-2021 Monocytes/100 WBC (Bld) 9.9 % 0-10 [facility] Work Phone: Blood platelet mean volumeon 09-14-2021 Platelet mean volume (Bld) [Entitic vol] 11.3 fL 6.2-12.0 [facility] Work Phone: Determination of erythrocyte mean corpuscular volume (MCV)on 09-14-2021 MCV (RBC) [Entitic vol] 94.1 fL 80-94 [facility] Work Phone: Hematocrit Auto (Bld) [Volum e fraction]on 09-14-2021 Hematocrit (Bld) [Volume fraction] 52.8 % 40-54 [facility] Work Phone: Ketones Test strip Ql (U)on 09-14-2021 Ketones Ql (U) Negative Negative [facility] Work Phone: Laboratory - Chemistry and C hemistry - challengeon 09-14-2021 CO2 [Moles/Vol] 24.0 mmol/L 21.0-32.0 [facility] Work Phone: Urea nitrogen/Creatinine [Mass ratio] 11.9 mg/mg 10-20 [facility] Work Phone: Laboratory - Hematology and Cell countson 09-14-2021 Erythrocyte distribution width (RBC) [Entitic vol] 40.8 fL 35.1-43.9 [facility] Work Phone: Erythrocyte distribution width (RBC) [Ratio] 11.8 % 11.6-14.6 [facility] Work Phone: Immature granulocytes/100 WBC (Bld) 0.500 % 0.0-0.9 [facility] Work Phone: Comment on above: IG% - Immature Granu locytes (promyelocytes, myelocytes and metamyelocytes) > 1% indicates that a LEFT SHIFT is Present. MCH (RBC) [Entitic mass] 30.7 pg 27.0-32.0 [facility] Work Phone: Nucleated RBC/100 WBC (Bld) [Ratio] 0 % 0-5 [facility] Work Phone: Laboratory - Microbiology an d Antimicrobial susceptibilityon 09-14-2021 Bacteria identified Cx Nom (Bld) No growth in 5 days. [facility] Work Phone: MCHC Auto (RBC) [Mass/Vol]on 09-14-2021 MCHC (RBC) [Mass/Vol] 32.6 g/dL 32-36 [facility] Work Phone: Mucus LM Ql (Urine sed)on Mucus Ql (Urine sed) 0 SEEN /hpf [facility] Work Phone: Nitrite Test strip Ql (U)on 09-14-2021 Nitrite Ql (U) Negative Negative [facility] Work Phone: No Panel Informationon 09-14 D-Dimer Quantitative (PE/DVT) 0.70 FEU/ug/m 0.27-0.49 [facility] Work Phone: Comment on above: CRITICAL VALUE VERIF IED. CALLED TO BHAVESH MOON09/14/21 0935 Ferdinand Mike.RESULTS READ BACK BY SAME . D-Dimer ELEVATED (>0.49): Additional studies and clinicalassessments are indicated to conclude diagnosis of:Deep Vein Thrombosis (DVT) or Pulmonary Embolism (PE) Estimated Creatinine Clearance Calc 47.50 ml/min [facility] Work Phone: Estimated GFR (MDRD) Amer 52 mL/min >60 [facility] Work Phone: Comment on above: GFR Calc Estimated GFR (MDRD) Non-Af Amer 43 mL/min >60 [facility] Work Phone: Comment on above: Non- GFR Calc Troponin I High Sensitivity 24 pg/mL 3.0-78.0 [facility] Work Phone: Comment on above: Please Note: New Isha t Units and Gender Specific Reference Ranges. For more information see Policy Stat Procedure Coldiron High Sensitivity Troponin (TNIH) and attachments. SARS-CoV-2 Antigen (Rapid) SARS-CoV-2 (COVID 19) [facility] Work Phone: Platelets bldon 09-14-2021 Platelets (Bld) [#/Vol] 144 10*3/uL 150-450 [facility] Work Phone: Protein Test strip Ql (U)on 09-14-2021 Protein Ql (U) 15 mg/dl Negative [facility] Work Phone: Serum or plasma calcium regi urement (mass/volume)on 09-14-2021 Calcium [Mass/Vol] 9.1 mg/dL 8.5-10.1 [facility] Work Phone: Serum or plasma creatinine m easurement (mass/volume)on 09-14-2021 Creatinine [Mass/Vol] 1.76 mg/dL 0.70-1.30 [facility] Work Phone: Comment on above: The validity of the calculated GFR & GFRAA in patients over 70 years has not been determined. Clinical correlation is essential. Serum or plasma urea nitroge n measurement (mass/volume)on 09-14-2021 Urea nitrogen [Mass/Vol] 21 mg/dL 7-18 [facility] Work Phone: Squamous epithelial cells de tection in urine sediment by light microscopyon 09-14-2021 Epithelial cells.squamous LM Ql (Urine sed) 0 SEEN /hpf [facility] Work Phone: Thin prep Papanicolaou smear with manual screeningon 09-14-2021 Thin prep Papanicolaou smear with manual screening 8 5-15 [facility] Work Phone: Urine blood detectionon RBC Ql (U) 250 /ul Negative [facility] Work Phone: RBC Ql (U) 5-10 SEEN /hpf [facility] Work Phone: Urine clarityon 09-14-2021 Clarity (U) Clear Clear [facility] Work Phone: Urine color determinationon 09-14-2021 Color (U) Yellow Yellow [facility] Work Phone: Urine glucose detectionon Glucose Ql (U) Normal mg/dl Normal [facility] Work Phone: Urine leukocyte esterase det ection by dipstickon 09-14-2021 Leukocyte esterase Test strip Ql (U) Negative Negative [facility] Work Phone: Urine pHon 09-14-2021 pH (U) 5.0 [pH] [facility] Work Phone: Urine sediment bacteria coun t by microscopy (number/high power field)on 09-14-2021 Bacteria LM.HPF (Urine sed) [#/Area] 0 /[HPF] None Seen [facility] Work Phone: Urine specific gravity measu rementon 09-14-2021 Specific gravity (U) [Rel density] 1.015 [facility] Work Phone: Urobilinogen Auto test strip Ql (U)on 09-14-2021 Urobilinogen Ql (U) Normal mg/dl Normal [facility] Work Phone: Bacteria identified Anaer cx Nom (Unsp spec) Anaerobic Culture Prevotella bivia [facility] Work Phone: Anaerobic Culture Anaerobic cocci [facility] Work Phone: Anaerobic Culture Negative [facility] Work Phone: Bacteria identified Cx Nom ( Wound) Wound Culture Enterococcus faecalis [facility] Work Phone: Wound Culture Staphylococcus homin is hominis [facility] Work Phone: Wound Culture Corynebacterium amycolatum [facility] Work Phone: Wound Culture Streptococcus mitis/ oralis [facility] Work Phone: Wound Culture Actinomyces odontolyticus [facility] Work Phone: Wound Culture Staphylococcus aureus [facility] Work Phone: Wound Culture Escherichia coli [facility] Work Phone: [phone] Wound Culture Actinomyces species [facility] Work Phone: Wound Culture Strep anginosus [facility] Work Phone: Wound Culture Staphylococcus epidermidis [facility] Work Phone: Wound Culture Enterococcus casseliflavus (D) [facility] Work Phone: Wound Culture Turicella otitidis [facility] Work Phone: Gram stain for investigation of transfusion reaction Microscopic observation Gram stain Nom (Unsp spec) [facility] Work Phone: Laboratory - Microbiology an d Antimicrobial susceptibility Bacteria identified Cx Nom (Bld) No growth in 5 days. [facility] Work Phone: Vital Signs Date Time Vital Sign Value Performing Clinician Facility 05-14-2025 08:54-0400 Body height 172.7 cm Mariza Vences GLOBAL COMPENSATION DIRECTOR.SENIOR NET SOFTWARE DEVELOPER Work Phone: [facility] 05-14-2025 08:54-0400 Body mass index (BMI) [Ratio] 25.34 kg/m2 Mariza Vences GLOBAL COMPENSATION DIRECTOR.SENIOR NET SOFTWARE DEVELOPER Work Phone: [facility] 05-14-2025 08:54-0400 Body weight 75.6 kg Mariza Vences GLOBAL COMPENSATION DIRECTOR.SENIOR NET SOFTWARE DEVELOPER Work Phone: [facility] 05-14-2025 08:54-0400 Diastolic blood pressure 66 mm[Hg] Mariza Vences GLOBAL COMPENSATION DIRECTOR.SENIOR NET SOFTWARE DEVELOPER Work Phone: [facility] 05-14-2025 08:54-0400 Heart rate 106 /min Mariza Vences GLOBAL COMPENSATION DIRECTOR.SENIOR NET SOFTWARE DEVELOPER Work Phone: [facility] 05-14-2025 08:54-0400 Systolic blood pressure 105 mm[Hg] Mariza Vences GLOBAL COMPENSATION DIRECTOR.SENIOR NET SOFTWARE DEVELOPER Work Phone: [facility] 04-18-2025 02:50-0400 Body temperature 97.8 [degF] Dr. Zaida Gaston MD Work Phone: [facility] 04-18-2025 02:50-0400 Diastolic blood pressure 82 mm[Hg] Dr. Zaida Gaston MD Work Phone: [facility] 04-18-2025 02:50-0400 Heart rate 73 /min Dr. Zaida Gaston MD Work Phone: [facility] 04-18-2025 02:50-0400 Respiratory rate 16 /min Dr. Zaida Gaston MD Work Phone: 9(354)847-601783 [place] [address] 04-18-2025 02:50-0400 SaO2% (BldA) [Mass fraction] 99 % Dr. Zaida Gaston MD Work Phone: 4(940)813-202685 [place] [address] 04-18-2025 02:50-0400 Systolic blood pressure 137 mm[Hg] Dr. Zaida Gaston MD Work Phone: 4(049)348-881985 [place] [address] 04-15-2025 12:51-0400 Body height 172.[address] Zaida Gaston MD Work Phone: 0(781)544-005585 [place] [address] 04-15-2025 12:51-0400 Body mass index (BMI) [Ratio] 25.2 kg/m2 Dr. Zaida Gaston MD Work Phone: 3(980)623-380985 [place] [address] 04-15-2025 12:51-0400 Body weight 75.[address] Zaida Gaston MD Work Phone: 8(232)680-066085 [place] [address] 04-15-2025 12:00-0400 Diastolic blood pressure 96 mm[Hg] Dr. Zaida Gaston MD Work Phone: 7(892)973-241385 [place] [address] 04-15-2025 12:00-0400 Systolic blood pressure 136 mm[Hg] Dr. Zaida Gaston MD Work Phone: 3(927)483-842385 [place] [address] 04-15-2025 11:45-0400 Heart rate 95 /min Dr. Zaida Gaston MD Work Phone: 0(069)464-136585 [place] [address] 04-15-2025 11:45-0400 Respiratory rate 14 /min Dr. Zaida Gaston MD Work Phone: 8(498)509-616585 [place] [address] 04-15-2025 11:14-0400 Body temperature 98.9 [degF] Dr. Zaida Gaston MD Work Phone: 8(879)976-272085 [place] [address] 04-15-2025 11:14-0400 SaO2% (BldA) [Mass fraction] 95 % Dr. Zaida Gaston MD Work Phone: 6(163)521-072885 [place] [address] 04-14-2025 17:24-0400 Body height 172.[address] Zaida Gaston MD Work Phone: 5(158)604-866185 [place] [address] 04-14-2025 17:24-0400 Body mass index (BMI) [Ratio] 25.9 kg/m2 Dr. Zaida Gaston MD Work Phone: 2(237)341-273685 [place] [address] 04-14-2025 17:24-0400 Body weight 77.[address] Zaida Gaston MD Work Phone: 4(199)886-717185 [place] [address] 04-04-2025 16:33-0400 Body temperature 98.9 [degF] Dr. Zaida Gaston MD Work Phone: 0(762)189-580285 [place] [address] 04-04-2025 16:33-0400 Diastolic blood pressure 82 mm[Hg] Dr. Zaida Gaston MD Work Phone: 1(379)151-110785 [place] [address] 04-04-2025 16:33-0400 Heart rate 98 /min Dr. Zaida Gaston MD Work Phone: 5(249)137-961585 [place] [address] 04-04-2025 16:33-0400 Respiratory rate 16 /min Dr. Zaida Gaston MD Work Phone: 2(285)652-458085 [place] [address] 04-04-2025 16:33-0400 SaO2% (BldA) [Mass fraction] 99 % Dr. Zaida Gaston MD Work Phone: 2(555)496-657285 [place] [address] 04-04-2025 16:33-0400 Systolic blood pressure 143 mm[Hg] Dr. Zaida Gaston MD Work Phone: 4(204)736-241285 [place] [address] 04-04-2025 11:05-0400 Body height 172.[address] Zaida Gaston MD Work Phone: 2(846)051-255885 [place] [address] 04-04-2025 11:05-0400 Body mass index (BMI) [Ratio] 25.9 kg/m2 Dr. Zaida Gaston MD Work Phone: 5(695)768-067585 [place] [address] 04-04-2025 11:05-0400 Body weight 77.[address] Zaida Gaston MD Work Phone: 0(718)768-547185 [place] [address] 03-10-2025 20:48-0400 Body temperature 99.4 [degF] Dr. Zaida Gaston MD Work Phone: 4(158)910-054085 [place] [address] 03-10-2025 20:48-0400 Diastolic blood pressure 70 mm[Hg] Dr. Zaida Gaston MD Work Phone: 2(749)566-930485 [place] [address] 03-10-2025 20:48-0400 Heart rate 69 /min Dr. Zaida Gaston MD Work Phone: 9(302)377-932685 [place] [address] 03-10-2025 20:48-0400 Respiratory rate 18 /min Dr. Zaida Gaston MD Work Phone: 2(701)302-699585 [place] [address] 03-10-2025 20:48-0400 SaO2% (BldA) [Mass fraction] 97 % Dr. Zaida Gaston MD Work Phone: 4(478)563-546485 [place] [address] 03-10-2025 20:48-0400 Systolic blood pressure 110 mm[Hg] Dr. Zaida Gaston MD Work Phone: 8(306)339-531085 [place] [address] 03-10-2025 15:13-0400 Body mass index (BMI) [Ratio] 25.8 kg/m2 Dr. Zaida Gaston MD Work Phone: 8(633)511-028285 [place] [address] 03-10-2025 15:13-0400 Body weight 77.[address] Zaida Gaston MD Work Phone: 8(895)279-702385 [place] [address] 03-10-2025 11:27-0400 Body height 172.[address] Zaida Gaston MD Work Phone: 3(349)671-918985 [place] [address] 02-07-2025 16:05-0400 Diastolic blood pressure 89 mm[Hg] Dr. Zaida Gaston MD Work Phone: 1(634)664-197485 [place] [address] 02-07-2025 16:05-0400 Heart rate 89 /min Dr. Zaida Gaston MD Work Phone: 5(980)826-705985 [place] [address] 02-07-2025 16:05-0400 Respiratory rate 16 /min Dr. Zaida Gaston MD Work Phone: 1(855)022-112885 [place] [address] 02-07-2025 16:05-0400 SaO2% (BldA) [Mass fraction] 99 % Dr. Zaida Gaston MD Work Phone: 5(853)797-317485 [place] [address] 02-07-2025 16:05-0400 Systolic blood pressure 147 mm[Hg] Dr. Zaida Gaston MD Work Phone: 0(758)728-669585 [place] [address] 02-07-2025 13:09-0400 Body height 172.[address] Zaida Gaston MD Work Phone: 1(635)074-033985 [place] [address] 02-07-2025 13:09-0400 Body mass index (BMI) [Ratio] 26.4 kg/m2 Dr. Zaida Gaston MD Work Phone: 3(581)444-602285 [place] [address] 02-07-2025 13:09-0400 Body temperature 98.2 [degF] Dr. Zaida Gaston MD Work Phone: 6(938)815-177785 [place] [address] 02-07-2025 13:09-0400 Body weight 78.[address] Zaida Gaston MD Work Phone: 6(378)021-741985 [place] [address] 02-05-2025 11:13-0400 Body mass index (BMI) [Ratio] 27.59 kg/m2 Zaida Gaston MD Work Phone: 4(415)468-844083 [place] [address] 02-05-2025 11:13-0400 Body weight 82.28 kg Zaida Gaston MD Work Phone: 0(917)192-685783 [place] [address] 02-05-2025 11:13-0400 Diastolic blood pressure 68 mm[Hg] Zaida Gaston MD Work Phone: 7(404)151-322983 [place] [address] 02-05-2025 11:13-0400 Heart rate 93 /min Zaida Gaston MD Work Phone: 1(199)844-112482 [place] [address] 02-05-2025 11:13-0400 Respiratory rate 16 /min Zaida Gaston MD Work Phone: 1(620)925-887483 [place] [address] 02-05-2025 11:13-0400 SaO2% (BldA) [Mass fraction] 95 % Zaida Gaston MD Work Phone: 9(680)277-167382 [place] [address] 02-05-2025 11:13-0400 Systolic blood pressure 106 mm[Hg] Zaida Gaston MD Work Phone: 5(285)309-153082 [place] [address] 01-27-2025 02:59-0400 Body temperature 98.6 [degF] Dr. Zaida Gaston MD Work Phone: 3(643)574-240785 [place] [address] 01-27-2025 02:59-0400 Diastolic blood pressure 63 mm[Hg] Dr. Zaida Gaston MD Work Phone: 1(854)157-362585 [place] [address] 01-27-2025 02:59-0400 Heart rate 70 /min Dr. Zaida Gaston MD Work Phone: 0(278)628-319485 [place] [address] 01-27-2025 02:59-0400 Respiratory rate 17 /min Dr. Zaida Gaston MD Work Phone: 1(621)292-322185 [place] [address] 01-27-2025 02:59-0400 SaO2% (BldA) [Mass fraction] 97 % Dr. Zaida Gaston MD Work Phone: 1(452)353-919085 [place] [address] 01-27-2025 02:59-0400 Systolic blood pressure 89 mm[Hg] Dr. Zaida Gaston MD Work Phone: 5(809)265-554085 [place] [address] 01-26-2025 15:50-0400 Body mass index (BMI) [Ratio] 29 kg/m2 Dr. Zaida Gaston MD Work Phone: 9(766)597-370885 [place] [address] 01-26-2025 15:50-0400 Body weight 86.[address] Zaida Gaston MD Work Phone: 7(815)253-578885 [place] [address] 01-26-2025 15:47-0400 Body height 172.[address] Zaida Gaston MD Work Phone: 2(521)504-016685 [place] [address] 11-19-2024 17:47-0400 Body temperature 97.8 [degF] Dr. Zaida Gaston MD Work Phone: 5(318)314-944885 [place] [address] 11-19-2024 17:47-0400 Diastolic blood pressure 72 mm[Hg] Dr. Zaida Gaston MD Work Phone: 7(283)066-857385 [place] [address] 11-19-2024 17:47-0400 Heart rate 89 /min Dr. Zaida Gaston MD Work Phone: 2(374)133-904685 [place] [address] 11-19-2024 17:47-0400 Respiratory rate 18 /min Dr. Zaida Gaston MD Work Phone: 4(364)355-878285 [place] [address] 11-19-2024 17:47-0400 SaO2% (BldA) [Mass fraction] 95 % Dr. Zaida Gaston MD Work Phone: 2(612)427-413885 [place] [address] 11-19-2024 17:47-0400 Systolic blood pressure 105 mm[Hg] Dr. Zaida Gaston MD Work Phone: 5(735)588-311485 [place] [address] 11-19-2024 14:20-0400 Body height 172.[address] Zaida Gaston MD Work Phone: 8(193)473-010585 [place] [address] 11-19-2024 14:20-0400 Body mass index (BMI) [Ratio] 28.5 kg/m2 Dr. Zaida Gaston MD Work Phone: 6(820)958-239185 [place] [address] 11-19-2024 14:20-0400 Body weight 85.[address] Zaida Gaston MD Work Phone: 2(709)770-761585 [place] [address] 09-28-2024 14:59-0500 Body mass index (BMI) [Ratio] 29.04 kg/m2 Zaida Gaston MD Work Phone: 2(722)238-736983 [place] [address] 09-28-2024 14:59-0500 Body weight 86.64 kg Zaida Gaston MD Work Phone: 5(524)106-045483 [place] [address] 09-28-2024 14:59-0500 Diastolic blood pressure 72 mm[Hg] Zaida Gaston MD Work Phone: 1(401)779-622382 [place] [address] 09-28-2024 14:59-0500 Heart rate 95 /min Zaida Gaston MD Work Phone: 5(488)755-595682 [place] [address] 09-28-2024 14:59-0500 Respiratory rate 16 /min Zaida Gaston MD Work Phone: 3(186)015-563182 [place] [address] 09-28-2024 14:59-0500 Systolic blood pressure 120 mm[Hg] Zaida Gaston MD Work Phone: 7(837)170-477582 [place] [address] 07-28-2024 10:37-0500 Body mass index (BMI) [Ratio] 29.5 kg/m2 Dr. Zaida Gaston MD Work Phone: 7(055)631-984383 [place] [address] 07-28-2024 10:37-0500 Body weight 88.[address] Zaida Gaston MD Work Phone: 4(905)259-316383 [place] [address] 07-28-2024 10:37-0500 Diastolic blood pressure 68 mm[Hg] Dr. Zaida Gaston MD Work Phone: 2(579)729-224985 [place] [address] 07-28-2024 10:37-0500 Heart rate 84 /min Dr. Zaida Gaston MD Work Phone: 4(940)851-128285 [place] [address] 07-28-2024 10:37-0500 SaO2% (BldA) [Mass fraction] 95 % Dr. Zaida Gaston MD Work Phone: 7(449)749-373485 [place] [address] 07-28-2024 10:37-0500 Systolic blood pressure 109 mm[Hg] Dr. Zaida Gaston MD Work Phone: 0(339)005-190185 [place] [address] 06-18-2024 12:32-0400 Diastolic blood pressure 96 mm[Hg] Zaida Gaston MD Work Phone: 2(816)342-062482 [place] [address] 06-18-2024 12:32-0400 Systolic blood pressure 151 mm[Hg] Zaida Gaston MD Work Phone: 2(260)715-187382 [place] [address] 06-18-2024 11:29-0400 Body mass index (BMI) [Ratio] 30.77 kg/m2 Zaida Gaston MD Work Phone: 9(242)760-769482 [place] [address] 06-18-2024 11:29-0400 Body weight 91.81 kg Zaida Gaston MD Work Phone: 7(121)552-829782 [place] [address] 06-18-2024 11:29-0400 Heart rate 100 /min Zaida Gaston MD Work Phone: [facility] 06-18-2024 11:29-0400 SaO2% (BldA) [Mass fraction] 99 % Zaida Gaston MD Work Phone: [facility] 04-01-2024 13:35-0400 Diastolic blood pressure 83 mm[Hg] Lali Raman MD Work Phone: [facility] 04-01-2024 13:35-0400 Heart rate 95 /min Lali Raman MD Work Phone: [facility] 04-01-2024 13:35-0400 Respiratory rate 18 /min Lali Raman MD Work Phone: [facility] 04-01-2024 13:35-0400 SaO2% (BldA) [Mass fraction] 99 % Lali Raman MD Work Phone: [facility] 04-01-2024 13:35-0400 Systolic blood pressure 152 mm[Hg] Lali Raman MD Work Phone: [facility] 04-01-2024 12:55-0400 Body temperature 98.8 [degF] Lali Raman MD Work Phone: [facility] 04-01-2024 11:46-0400 Body height 172.7 cm Lali Raman MD Work Phone: [facility] 04-01-2024 11:46-0400 Body mass index (BMI) [Ratio] 29.95 kg/m2 Lali Raman MD Work Phone: [facility] 04-01-2024 11:46-0400 Body weight 89.36 kg Lali Raman MD Work Phone: [facility] 03-24-2024 16:04-0400 Body height 172.7 cm Nia Jacob GLOBAL COMPENSATION DIRECTOR.SENIOR NET SOFTWARE DEVELOPER Work Phone: [facility] 03-24-2024 16:04-0400 Body mass index (BMI) [Ratio] 29.95 kg/m2 Nia Jacob GLOBAL COMPENSATION DIRECTOR.SENIOR NET SOFTWARE DEVELOPER Work Phone: [facility] 03-24-2024 16:04-0400 Body temperature 97.9 [degF] Nia Jacob GLOBAL COMPENSATION DIRECTOR.SENIOR NET SOFTWARE DEVELOPER Work Phone: [facility] 03-24-2024 16:04-0400 Body weight 89.36 kg Nia Jacob GLOBAL COMPENSATION DIRECTOR.SENIOR NET SOFTWARE DEVELOPER Work Phone: [facility] 03-24-2024 16:04-0400 Diastolic blood pressure 60 mm[Hg] Nia Jacob GLOBAL COMPENSATION DIRECTOR.SENIOR NET SOFTWARE DEVELOPER Work Phone: [facility] 03-24-2024 16:04-0400 Heart rate 105 /min Nia Jacob GLOBAL COMPENSATION DIRECTOR.SENIOR NET SOFTWARE DEVELOPER Work Phone: [facility] 03-24-2024 16:04-0400 SaO2% (BldA) [Mass fraction] 95 % Nia Jacob GLOBAL COMPENSATION DIRECTOR.SENIOR NET SOFTWARE DEVELOPER Work Phone: [facility] 03-24-2024 16:04-0400 Systolic blood pressure 118 mm[Hg] Nia Jacob GLOBAL COMPENSATION DIRECTOR.SENIOR NET SOFTWARE DEVELOPER Work Phone: [facility] 03-18-2024 17:31-0400 Body mass index (BMI) [Ratio] 30.26 kg/m2 Delia Older GLOBAL COMPENSATION DIRECTOR.SENIOR NET SOFTWARE DEVELOPER Work Phone: [facility] 03-18-2024 17:31-0400 Body weight 90.27 kg Delia Older GLOBAL COMPENSATION DIRECTOR.SENIOR NET SOFTWARE DEVELOPER Work Phone: [facility] 03-18-2024 17:31-0400 Diastolic blood pressure 72 mm[Hg] Delia Older GLOBAL COMPENSATION DIRECTOR.SENIOR NET SOFTWARE DEVELOPER Work Phone: [facility] 03-18-2024 17:31-0400 Heart rate 102 /min Delia Older GLOBAL COMPENSATION DIRECTOR.SENIOR NET SOFTWARE DEVELOPER Work Phone: [facility] 03-18-2024 17:31-0400 Respiratory rate 16 /min Delia Older GLOBAL COMPENSATION DIRECTOR.SENIOR NET SOFTWARE DEVELOPER Work Phone: [facility] 03-18-2024 17:31-0400 SaO2% (BldA) [Mass fraction] 95 % Delia Older GLOBAL COMPENSATION DIRECTOR.SENIOR NET SOFTWARE DEVELOPER Work Phone: [facility] 03-18-2024 17:31-0400 Systolic blood pressure 118 mm[Hg] Delia Older GLOBAL COMPENSATION DIRECTOR.SENIOR NET SOFTWARE DEVELOPER Work Phone: [facility] 01-22-2024 16:40-0400 Body mass index (BMI) [Ratio] 30.72 kg/m2 Delia Older GLOBAL COMPENSATION DIRECTOR.SENIOR NET SOFTWARE DEVELOPER Work Phone: [facility] 01-22-2024 16:40-0400 Body weight 91.63 kg Delia Older GLOBAL COMPENSATION DIRECTOR.SENIOR NET SOFTWARE DEVELOPER Work Phone: [facility] 01-22-2024 16:40-0400 Diastolic blood pressure 78 mm[Hg] Delia Older GLOBAL COMPENSATION DIRECTOR.SENIOR NET SOFTWARE DEVELOPER Work Phone: [facility] 01-22-2024 16:40-0400 Heart rate 97 /min Delia Older GLOBAL COMPENSATION DIRECTOR.SENIOR NET SOFTWARE DEVELOPER Work Phone: [facility] 01-22-2024 16:40-0400 Respiratory rate 16 /min Delia Older GLOBAL COMPENSATION DIRECTOR.SENIOR NET SOFTWARE DEVELOPER Work Phone: [facility] 01-22-2024 16:40-0400 SaO2% (BldA) [Mass fraction] 97 % Delia Older GLOBAL COMPENSATION DIRECTOR.SENIOR NET SOFTWARE DEVELOPER Work Phone: [facility] 01-22-2024 16:40-0400 Systolic blood pressure 116 mm[Hg] Delia Older GLOBAL COMPENSATION DIRECTOR.SENIOR NET SOFTWARE DEVELOPER Work Phone: [facility] 01-13-2024 13:33-0400 Body height 172.7 cm [employer] Work Phone: [facility] 01-13-2024 13:33-0400 Body mass index (BMI) [Ratio] 30.61 kg/m2 [employer] Work Phone: [facility] 01-13-2024 13:33-0400 Body temperature 97.7 [degF] [employer] Work Phone: [facility] 01-13-2024 13:33-0400 Body weight 91.3 kg [employer] Work Phone: [facility] 01-13-2024 13:33-0400 Diastolic blood pressure 73 mm[Hg] [employer] Work Phone: [facility] 01-13-2024 13:33-0400 Heart rate 104 /min [employer] Work Phone: [facility] 01-13-2024 13:33-0400 SaO2% (BldA) [Mass fraction] 98 % [employer] Work Phone: [facility] 01-13-2024 13:33-0400 Systolic blood pressure 127 mm[Hg] [employer] Work Phone: [facility] 01-02-2024 10:57-0400 Body height 172.[address] Zadia Gaston Work Phone: [facility] 01-02-2024 10:57-0400 Body mass index (BMI) [Ratio] 31.6 kg/m2 Dr. Zaida Gaston Work Phone: [facility] 01-02-2024 10:57-0400 Body temperature 98 [degF] Dr. Zaida Gaston Work Phone: [facility] 01-02-2024 10:57-0400 Body weight 94.[address] Zaida Gaston Work Phone: [facility] 01-02-2024 10:57-0400 Diastolic blood pressure 84 mm[Hg] Dr. Zaida Gaston Work Phone: [facility] 01-02-2024 10:57-0400 Heart rate 100 /min Dr. Zaida Gaston Work Phone: [facility] 01-02-2024 10:57-0400 Respiratory rate 18 /min Dr. Zaida Gaston Work Phone: [facility] 01-02-2024 10:57-0400 SaO2% (BldA) [Mass fraction] 93 % Dr. Zaida Gaston Work Phone: [facility] 01-02-2024 10:57-0400 Systolic blood pressure 135 mm[Hg] Dr. Zaida Gaston Work Phone: [facility] 11-26-2023 07:57-0400 Body height 172.7 cm Xiang Perez PA-C Work Phone: [facility] 11-26-2023 07:57-0400 Body weight 95.71 kg Xiang Denbow PA-C Work Phone: [facility] 11-26-2023 07:57-0400 Diastolic blood pressure 80 mm[Hg] Xiang Denbow PA-C Work Phone: [facility] 11-26-2023 07:57-0400 Heart rate 104 /min Xiang Denbow PA-C Work Phone: [facility] 11-26-2023 07:57-0400 Respiratory rate 12 /min Xinag Denbow PA-C Work Phone: [facility] 11-26-2023 07:57-0400 SaO2% (BldA) [Mass fraction] 98 % Xiang Denbow PA-C Work Phone: [facility] 11-26-2023 07:57-0400 Systolic blood pressure 140 mm[Hg] Xiang Denbow PA-C Work Phone: [facility] 11-11-2023 13:29-0500 Body mass index (BMI) [Ratio] 31.6 kg/m2 Dr. Zaida Gaston Work Phone: [facility] 11-11-2023 13:29-0500 Body weight 94.[address] Zaida Gaston Work Phone: [facility] 11-11-2023 13:29-0500 Diastolic blood pressure 64 mm[Hg] Dr. Zaida Gaston Work Phone: [facility] 11-11-2023 13:29-0500 Heart rate 94 /min Dr. Zaida Gaston Work Phone: [facility] 11-11-2023 13:29-0500 Respiratory rate 18 /min Dr. Zaida Gaston Work Phone: [facility] 11-11-2023 13:29-0500 SaO2% (BldA) [Mass fraction] 96 % Dr. Zaida Gaston Work Phone: 1(117)845-462883 [place] [address] 11-11-2023 13:29-0500 Systolic blood pressure 103 mm[Hg] Dr. Zaida Gaston Work Phone: 2(584)455-699083 [place] [address] 10-24-2023 10:41-0500 Body mass index (BMI) [Ratio] 32.6 kg/m2 Dr. Zaida Gaston Work Phone: 3(176)989-838583 [place] [address] 10-24-2023 10:41-0500 Body temperature 98.9 [degF] Dr. Zaida Gaston Work Phone: 1(268)725-951785 [place] [address] 10-24-2023 10:41-0500 Body weight 97.[address] Zaida Gaston Work Phone: 8(679)218-160685 [place] [address] 10-24-2023 10:41-0500 Diastolic blood pressure 86 mm[Hg] Dr. Zaida Gaston Work Phone: 6(907)585-717185 [place] [address] 10-24-2023 10:41-0500 Heart rate 86 /min Dr. Zaida Gaston Work Phone: 5(482)936-627485 [place] [address] 10-24-2023 10:41-0500 Respiratory rate 18 /min Dr. Zaida Gaston Work Phone: 9(803)320-795285 [place] [address] 10-24-2023 10:41-0500 SaO2% (BldA) [Mass fraction] 98 % Dr. Zaida Gaston Work Phone: 7(973)062-026083 [place] [address] 10-24-2023 10:41-0500 Systolic blood pressure 126 mm[Hg] Dr. Zaida Gaston Work Phone: [facility] 09-18-2023 14:37-0500 Body weight 90.72 kg Delia Older GLOBAL COMPENSATION DIRECTOR.SENIOR NET SOFTWARE DEVELOPER Work Phone: [facility] 09-18-2023 14:37-0500 Diastolic blood pressure 76 mm[Hg] Delia Older GLOBAL COMPENSATION DIRECTOR.SENIOR NET SOFTWARE DEVELOPER Work Phone: [facility] 09-18-2023 14:37-0500 Heart rate 96 /min Delia Older GLOBAL COMPENSATION DIRECTOR.SENIOR NET SOFTWARE DEVELOPER Work Phone: [facility] 09-18-2023 14:37-0500 Respiratory rate 16 /min Delia Older GLOBAL COMPENSATION DIRECTOR.SENIOR NET SOFTWARE DEVELOPER Work Phone: [facility] 09-18-2023 14:37-0500 SaO2% (BldA) [Mass fraction] 98 % Delia Older GLOBAL COMPENSATION DIRECTOR.SENIOR NET SOFTWARE DEVELOPER Work Phone: [facility] 09-18-2023 14:37-0500 Systolic blood pressure 128 mm[Hg] Delia Older GLOBAL COMPENSATION DIRECTOR.SENIOR NET SOFTWARE DEVELOPER Work Phone: [facility] 08-20-2023 14:43-0500 Body weight 90.27 kg Oscar Mas PA-C Work Phone: [facility] 08-13-2023 16:08-0500 Body height 172.7 cm Oscar Mas PA-C Work Phone: [facility] 08-13-2023 16:08-0500 Body temperature 98.29 [degF] Oscar Mas PA-C Work Phone: [facility] 08-13-2023 16:08-0500 Body weight 90.63 kg Oscar Mas PA-C Work Phone: [facility] 08-13-2023 16:08-0500 Diastolic blood pressure 60 mm[Hg] Oscar Mas PA-C Work Phone: [facility] 08-13-2023 16:08-0500 Heart rate 98 /min Oscar Mas PA-C Work Phone: [facility] 08-13-2023 16:08-0500 Respiratory rate 14 /min Oscar Mas PA-C Work Phone: [facility] 08-13-2023 16:08-0500 SaO2% (BldA) [Mass fraction] 97 % Oscar Mas PA-C Work Phone: [facility] 08-13-2023 16:08-0500 Systolic blood pressure 108 mm[Hg] Oscar Mas PA-C Work Phone: [facility] 07-15-2023 14:14-0500 Body height 172.7 cm [employer] Work Phone: [facility] 07-15-2023 14:14-0500 Body temperature 97 [degF] [employer] Work Phone: [facility] 07-15-2023 14:14-0500 Body weight 92.85 kg [employer] Work Phone: [facility] 07-15-2023 14:14-0500 Diastolic blood pressure 78 mm[Hg] [employer] Work Phone: [facility] 07-15-2023 14:14-0500 Heart rate 82 /min [employer] Work Phone: [facility] 07-15-2023 14:14-0500 SaO2% (BldA) [Mass fraction] 100 % [employer] Work Phone: [facility] 07-15-2023 14:14-0500 Systolic blood pressure 116 mm[Hg] [employer] Work Phone: [facility] 05-21-2023 15:10-0400 Body weight 92.99 kg Xiang Denbow PA-C Work Phone: [facility] 05-21-2023 15:10-0400 Diastolic blood pressure 83 mm[Hg] Xiang Denbow PA-C Work Phone: [facility] 05-21-2023 15:10-0400 Heart rate 96 /min Xiang Denbow PA-C Work Phone: [facility] 05-21-2023 15:10-0400 Respiratory rate 16 /min Xiang Denbow PA-C Work Phone: [facility] 05-21-2023 15:10-0400 Systolic blood pressure 132 mm[Hg] Xiang Denbow PA-C Work Phone: [facility] 03-14-2023 07:00-0400 Respiratory rate 16 /min Dr. Zaida Gaston Work Phone: [facility] 03-14-2023 03:49-0400 Diastolic blood pressure 74 mm[Hg] Dr. Zaida Gaston Work Phone: [facility] 03-14-2023 03:49-0400 Heart rate 69 /min Dr. Zaida Gaston Work Phone: 2(477)891-735983 [place] [address] 03-14-2023 03:49-0400 Inhaled oxygen flow rate 97 L/min Dr. Zaida Gaston Work Phone: 9(007)234-348585 [place] [address] 03-14-2023 03:49-0400 Systolic blood pressure 130 mm[Hg] Dr. Zaida Gaston Work Phone: 9(982)955-325885 [place] [address] 03-14-2023 01:00-0400 SaO2% (BldA) [Mass fraction] 97 % Dr. Zaida aGston Work Phone: 1(541)577-457485 [place] [address] 03-13-2023 22:22-0400 Body height 172.[address] Zaida Gaston Work Phone: 8(623)161-638585 [place] [address] 03-13-2023 22:22-0400 Body mass index (BMI) [Ratio] 33.2 kg/m2 Dr. Zaida Gaston Work Phone: 1(453)093-120085 [place] [address] 03-13-2023 22:22-0400 Body temperature 95.6 [degF] Dr. Zaida Gaston Work Phone: 9(285)767-958385 [place] [address] 03-13-2023 22:22-0400 Body weight [address] Zaida Gaston Work Phone: 7(261)370-113685 [place] [address] 02-25-2023 11:55-0400 Body height 172.7 cm Zaida Gaston MD Work Phone: 3(889)298-342082 [place] [address] 02-25-2023 11:55-0400 Body temperature 98.49 [degF] Zaida Gaston MD Work Phone: [facility] 02-25-2023 11:55-0400 Body weight 100.7 kg Zaida Gaston MD Work Phone: [facility] 02-25-2023 11:55-0400 Diastolic blood pressure 62 mm[Hg] Zaida Gaston MD Work Phone: 5(872)921-134982 [place] [address] 02-25-2023 11:55-0400 Heart rate 85 /min Zaida Gaston MD Work Phone: [facility] 02-25-2023 11:55-0400 Respiratory rate 12 /min Zaida Gaston MD Work Phone: [facility] 02-25-2023 11:55-0400 SaO2% (BldA) [Mass fraction] 96 % Zaida Gaston MD Work Phone: [facility] 02-25-2023 11:55-0400 Systolic blood pressure 130 mm[Hg] Zaida Gaston MD Work Phone: [facility] 02-21-2023 14:02-0400 Body mass index (BMI) [Ratio] 34.3 kg/m2 Dr. Zaida Gaston Work Phone: 8(494)784-364983 [place] [address] 02-21-2023 14:02-0400 Body weight 102.[address] Zaida Gaston Work Phone: 3(963)900-521683 [place] [address] 02-21-2023 14:02-0400 Diastolic blood pressure 62 mm[Hg] Dr. Zaida Gaston Work Phone: 3(435)008-903285 [place] [address] 02-21-2023 14:02-0400 Heart rate 80 /min Dr. Zaida Gaston Work Phone: 7(400)762-658783 [place] [address] 02-21-2023 14:02-0400 Respiratory rate 18 /min Dr. Zaida Gaston Work Phone: 8(319)629-037483 [place] [address] 02-21-2023 14:02-0400 SaO2% (BldA) [Mass fraction] 98 % Dr. Zaida Gaston Work Phone: 8(797)868-569683 [place] [address] 02-21-2023 14:02-0400 Systolic blood pressure 107 mm[Hg] Dr. Zaida Gaston Work Phone: 2(399)327-266585 [place] [address] 01-14-2023 09:37-0400 Body height 172.[address] Zaida Gaston Work Phone: 2(643)216-757183 [place] [address] 01-14-2023 09:37-0400 Body mass index (BMI) [Ratio] 35.3 kg/m2 Dr. Zaida Gaston Work Phone: [facility] 01-14-2023 09:37-0400 Body temperature 97.5 [degF] Dr. Zaida Gaston Work Phone: [facility] 01-14-2023 09:37-0400 Body weight 105.[address] Zaida Gaston Work Phone: [facility] 01-14-2023 09:37-0400 Diastolic blood pressure 72 mm[Hg] Dr. Zaida Gaston Work Phone: [facility] 01-14-2023 09:37-0400 Heart rate 91 /min Dr. Zaida Gaston Work Phone: [facility] 01-14-2023 09:37-0400 Respiratory rate 16 /min Dr. Zaida Gaston Work Phone: [facility] 01-14-2023 09:37-0400 SaO2% (BldA) [Mass fraction] 95 % Dr. Zaida Gaston Work Phone: [facility] 01-14-2023 09:37-0400 Systolic blood pressure 109 mm[Hg] Dr. Zaida Gaston Work Phone: [facility] 12-31-2022 15:29-0400 Body height 172.7 cm [facility] Work Phone: [facility] 12-31-2022 15:29-0400 Body temperature 98.71 [degF] [facility] Work Phone: [facility] 12-31-2022 15:29-0400 Body weight 102.51 kg [facility] Work Phone: [facility] 12-31-2022 15:29-0400 Diastolic blood pressure 65 mm[Hg] [facility] Work Phone: [facility] 12-31-2022 15:29-0400 Heart rate 96 /min [facility] Work Phone: [facility] 12-31-2022 15:29-0400 SaO2% (BldA) [Mass fraction] 96 % [facility] Work Phone: [facility] 12-31-2022 15:29-0400 Systolic blood pressure 145 mm[Hg] [facility] Work Phone: [facility] 11-23-2022 14:29-0400 Body temperature 97.39 [degF] Zaida Gaston MD Work Phone: [facility] 11-23-2022 14:29-0400 Body weight 107.05 kg Zaida Gaston MD Work Phone: [facility] 11-23-2022 14:29-0400 Diastolic blood pressure 72 mm[Hg] Zaida Gaston MD Work Phone: [facility] 11-23-2022 14:29-0400 Heart rate 86 /min Zaida Gaston MD Work Phone: [facility] 11-23-2022 14:29-0400 Respiratory rate 16 /min Zaida Gaston MD Work Phone: [facility] 11-23-2022 14:29-0400 SaO2% (BldA) [Mass fraction] 95 % Zaida Gaston MD Work Phone: [facility] 11-23-2022 14:29-0400 Systolic blood pressure 118 mm[Hg] Zaida Gaston MD Work Phone: [facility] 11-05-2022 20:03-0500 Body temperature 98.4 [degF] Dr. Zaida Gaston Work Phone: [facility] 11-05-2022 20:03-0500 Diastolic blood pressure 75 mm[Hg] Dr. Zaida Gaston Work Phone: [facility] 11-05-2022 20:03-0500 Heart rate 86 /min Dr. Zaida Gaston Work Phone: [facility] 11-05-2022 20:03-0500 Respiratory rate 16 /min Dr. Zaida Gaston Work Phone: 2(028)280-406485 [place] [address] 11-05-2022 20:03-0500 SaO2% (BldA) [Mass fraction] 98 % Dr. Zaida Gaston Work Phone: 8(687)921-988685 [place] [address] 11-05-2022 20:03-0500 Systolic blood pressure 147 mm[Hg] Dr. Zaida Gaston Work Phone: 8(134)221-089285 [place] [address] 11-02-2022 12:26-0500 Body height 172.[address] Zaida Gaston Work Phone: 7(207)387-041085 [place] [address] 11-02-2022 12:26-0500 Body weight 108.[address] Zaida Gaston Work Phone: 2(822)242-700685 [place] [address] 11-01-2022 17:43-0500 Inhaled oxygen flow rate 2 L/min Dr. Zaida Gaston Work Phone: 8(068)345-606185 [place] [address] 11-01-2022 11:06-0500 Body temperature 97.6 [degF] Dr. Zaida Gaston Work Phone: 2(204)689-495385 [place] [address] 11-01-2022 11:06-0500 Diastolic blood pressure 96 mm[Hg] Dr. Zaida Gaston Work Phone: 3(400)682-240285 [place] [address] 11-01-2022 11:06-0500 Heart rate 89 /min Dr. Zaida Gaston Work Phone: 7(173)221-933685 [place] [address] 11-01-2022 11:06-0500 Respiratory rate 16 /min Dr. Zaida Gaston Work Phone: 0(642)304-923085 [place] [address] 11-01-2022 11:06-0500 SaO2% (BldA) [Mass fraction] 96 % Dr. Zaida Gaston Work Phone: 9(681)537-308385 [place] [address] 11-01-2022 11:06-0500 Systolic blood pressure 160 mm[Hg] Dr. Zaida Gaston Work Phone: 4(108)641-239785 [place] [address] 11-01-2022 10:26-0500 Body height 172.[address] Zaida Gaston Work Phone: 4(225)684-010385 [place] [address] 11-01-2022 10:26-0500 Body mass index (BMI) [Ratio] 80.3 kg/m2 Dr. Zaida Gaston Work Phone: 5(882)991-368585 [place] [address] 11-01-2022 10:26-0500 Body weight 239.[address] Zaida Gaston Work Phone: 7(868)074-907085 [place] [address] 11-01-2022 07:52-0500 Body mass index (BMI) [Ratio] 34.2 kg/m2 Dr. Zaida Gaston Work Phone: 7(043)084-113485 [place] [address] 11-01-2022 07:52-0500 Body temperature 97.2 [degF] Dr. Zaida Gaston Work Phone: 0(249)638-538985 [place] [address] 11-01-2022 07:52-0500 Diastolic blood pressure 74 mm[Hg] Dr. Zaida Gaston Work Phone: 9(194)106-628885 [place] [address] 11-01-2022 07:52-0500 Heart rate 89 /min Dr. Zaida Gaston Work Phone: 4(579)497-899085 [place] [address] 11-01-2022 07:52-0500 Systolic blood pressure 135 mm[Hg] Dr. Zaida Gaston Work Phone: 0(720)980-506685 [place] [address] 10-18-2022 09:14-0500 Body mass index (BMI) [Ratio] 34.7 kg/m2 Dr. Zaida Gaston Work Phone: 7(261)918-510085 [place] [address] 10-18-2022 09:14-0500 Body temperature 96.3 [degF] Dr. Zaida Gaston Work Phone: 4(118)448-975885 [place] [address] 10-18-2022 09:14-0500 Body weight 106.[address] Zaida Gaston Work Phone: 2(829)065-836585 [place] [address] 10-18-2022 09:14-0500 Diastolic blood pressure 79 mm[Hg] Dr. Zaida Gaston Work Phone: 5(402)729-951385 [place] [address] 10-18-2022 09:14-0500 Heart rate 89 /min Dr. Zaida Gaston Work Phone: [facility] 10-18-2022 09:14-0500 Respiratory rate 20 /min Dr. Zaida Gaston Work Phone: [facility] 10-18-2022 09:14-0500 SaO2% (BldA) [Mass fraction] 91 % Dr. Zaida Gaston Work Phone: [facility] 10-18-2022 09:14-0500 Systolic blood pressure 129 mm[Hg] Dr. Zaida Gaston Work Phone: [facility] 10-18-2022 07:59-0500 Respiratory rate 16 /min Dr. Zaida Gaston Work Phone: [facility] 10-10-2022 00:28-0500 Body weight 102.[address] Zaida Gaston Work Phone: [facility] 10-04-2022 13:30-0500 Diastolic blood pressure 64 mm[Hg] Verna [facility] Work Phone: [facility] 10-04-2022 13:30-0500 Heart rate 93 /min Verna [facility] Work Phone: [facility] 10-04-2022 13:30-0500 Systolic blood pressure 103 mm[Hg] [facility] Work [facility]: [facility] 09-27-2022 08:03-0500 Body mass index (BMI) [Ratio] 34.2 kg/m2 Dr. Zaida Gaston Work Phone: [facility] 09-27-2022 08:03-0500 Body temperature 96.9 [degF] Dr. Zaida Gaston Work Phone: [facility] 09-27-2022 08:03-0500 Diastolic blood pressure 77 mm[Hg] Dr. Zaida Gaston Work Phone: [facility] 09-27-2022 08:03-0500 Heart rate 92 /min Dr. Zaida Gaston Work Phone: [facility] 09-27-2022 08:03-0500 Respiratory rate 16 /min Dr. Zaida Gaston Work Phone: [facility] 09-27-2022 08:03-0500 Systolic blood pressure 117 mm[Hg] Dr. Zaida Gaston Work Phone: [facility] 09-24-2022 10:41-0500 Body height 172.7 cm [facility] Work Phone: [facility] 09-24-2022 10:41-0500 Body temperature 98.6 [degF] [facility] Work Phone: [facility] 09-24-2022 10:41-0500 Body weight 104.06 kg [facility] Work Phone: [facility] 09-24-2022 10:41-0500 Diastolic blood pressure 70 mm[Hg] [facility] Work Phone: [facility] 09-24-2022 10:41-0500 Heart rate 93 /min [facility] Work Phone: [facility] 09-24-2022 10:41-0500 SaO2% (BldA) [Mass fraction] 95 % [facility] Work Phone: [facility] 09-24-2022 10:41-0500 Systolic blood pressure 148 mm[Hg] [facility] Work Phone: [facility] 09-09-2022 00:22-0500 Body weight 102.[address] Zaida Gaston Work Phone: [facility] 09-06-2022 12:24-0500 Body mass index (BMI) [Ratio] 34.2 kg/m2 Dr. Zaida Gaston Work Phone: [facility] 09-06-2022 12:24-0500 Body temperature 95.8 [degF] Dr. Zaida Gaston Work Phone: [facility] 09-06-2022 12:24-0500 Diastolic blood pressure 72 mm[Hg] Dr. Zaida Gaston Work Phone: [facility] 09-06-2022 12:24-0500 Heart rate 69 /min Dr. Zaida Gaston Work Phone: 4(789)020-517185 [place] [address] 09-06-2022 12:24-0500 Systolic blood pressure 126 mm[Hg] Dr. Zaida Gaston Work Phone: 6(225)688-268785 [place] [address] 09-06-2022 10:25-0500 Body height 172.[address] Zaida Gaston Work Phone: 7(017)071-864585 [place] [address] 09-06-2022 10:25-0500 Body mass index (BMI) [Ratio] 34.2 kg/m2 Dr. Zaida Gaston Work Phone: 3(861)921-687185 [place] [address] 09-06-2022 10:25-0500 Body temperature 96.9 [degF] Dr. Zaida Gaston Work Phone: 3(240)765-819185 [place] [address] 09-06-2022 10:25-0500 Body weight 102.[address] Zaida Gaston Work Phone: 8(402)986-343985 [place] [address] 09-06-2022 10:25-0500 Diastolic blood pressure 87 mm[Hg] Dr. Zaida Gaston Work Phone: 5(803)486-076585 [place] [address] 09-06-2022 10:25-0500 Heart rate 83 /min Dr. Zaida Gaston Work Phone: 5(414)701-211485 [place] [address] 09-06-2022 10:25-0500 Respiratory rate 18 /min Dr. Zaida Gaston Work Phone: 7(269)816-827785 [place] [address] 09-06-2022 10:25-0500 SaO2% (BldA) [Mass fraction] 95 % Dr. Zaida Gaston Work Phone: 0(213)354-464085 [place] [address] 09-06-2022 10:25-0500 Systolic blood pressure 149 mm[Hg] Dr. Zaida Gaston Work Phone: 8(788)272-382285 [place] [address] 09-05-2022 11:05-0500 Respiratory rate 17 /min Dr. Zaida Gaston Work Phone: 8(257)993-576685 [place] [address] 08-28-2022 11:20-0500 Diastolic blood pressure 66 mm[Hg] Dr. Zaida Gaston Work Phone: 6(892)125-655883 [place] [address] 08-28-2022 11:20-0500 Heart rate 76 /min Dr. Zaida Gaston Work Phone: 2(747)635-470485 [place] [address] 08-28-2022 11:20-0500 Respiratory rate 12 /min Dr. Zaida Gaston Work Phone: 7(914)928-614485 [place] [address] 08-28-2022 11:20-0500 SaO2% (BldA) [Mass fraction] 94 % Dr. Zaida Gaston Work Phone: 8(141)394-746085 [place] [address] 08-28-2022 11:20-0500 Systolic blood pressure 115 mm[Hg] Dr. Zaida Gaston Work Phone: 6(778)655-245085 [place] [address] 08-28-2022 10:03-0500 Body height 172.[address] Zaida Gaston Work Phone: 1(731)893-887983 [place] [address] Work Phone: 08-28-2022 10:03-0500 Body mass index (BMI) [Ratio] 34.1 kg/m2 Dr. Zaida Gaston Work Phone: 9(449)666-008385 [place] [address] 08-28-2022 10:03-0500 Body temperature 96.7 [degF] Dr. Zaida Gaston Work Phone: 1(886)328-634085 [place] [address] 08-28-2022 10:03-0500 Body weight 101.[address] Zaida Gaston Work Phone: 2(920)182-173385 [place] [address] 08-28-2022 09:10-0500 Body temperature 97.4 [degF] Dr. Zaida Gaston Work Phone: 2(116)166-963283 [place] [address] Work Phone: 08-28-2022 09:10-0500 Diastolic blood pressure 87 mm[Hg] Dr. Zaida Gaston Work Phone: 3(474)230-535983 [place] [address] Work Phone: 08-28-2022 09:10-0500 Heart rate 75 /min Dr. Zaida Gaston Work Phone: [facility] Work Phone: 08-28-2022 09:10-0500 Respiratory rate 15 /min Dr. Zaida Gaston Work Phone: [facility] Work Phone: 08-28-2022 09:10-0500 Systolic blood pressure 155 mm[Hg] Dr. Zaida Gaston Work Phone: [facility] Work Phone: 08-25-2022 09:50-0500 Body temperature 98.29 [degF] Zaida Gaston MD Work Phone: [facility] 08-25-2022 09:50-0500 Body weight 101.61 kg Zaida Gaston MD Work Phone: [facility] 08-25-2022 09:50-0500 Diastolic blood pressure 72 mm[Hg] Zaida Gaston MD Work Phone: [facility] 08-25-2022 09:50-0500 Heart rate 84 /min Zaida Gaston MD Work Phone: [facility] 08-25-2022 09:50-0500 Respiratory rate 16 /min Zaida Gaston MD Work Phone: [facility] 08-25-2022 09:50-0500 Systolic blood pressure 134 mm[Hg] Zaida Gaston MD Work Phone: [facility] 08-23-2022 10:36-0500 Body mass index (BMI) [Ratio] 34.2 kg/m2 Dr. Zaida Gaston Work Phone: [facility] Work Phone: 08-17-2022 14:56-0500 Diastolic blood pressure 70 mm[Hg] Dr. Zaida Gaston Work Phone: [facility] 08-17-2022 14:56-0500 Systolic blood pressure 130 mm[Hg] Dr. Zaida Gaston Work Phone: [facility] 08-17-2022 14:55-0500 Body mass index (BMI) [Ratio] 34 kg/m2 Dr. Zaida Gaston Work Phone: 7(219)119-354683 [place] [address] 08-17-2022 14:55-0500 Body weight 101.[address] Zaida Gaston Work Phone: 2(869)508-625085 [place] [address] 08-17-2022 14:55-0500 Heart rate 92 /min Dr. Zaida Gaston Work Phone: 0(673)777-069885 [place] [address] 08-17-2022 14:55-0500 Respiratory rate 18 /min Dr. Zaida Gaston Work Phone: 1(178)139-628985 [place] [address] 08-17-2022 14:55-0500 SaO2% (BldA) [Mass fraction] 97 % Dr. Zaida Gaston Work Phone: 4(736)728-086585 [place] [address] 08-09-2022 00:26-0500 Body weight 102.[address] Zaida Gaston Work Phone: 3(323)947-247085 [place] [address] 08-08-2022 11:07-0500 Body temperature 97.3 [degF] Dr. Zaida Gaston Work Phone: 0(644)429-880985 [place] [address] 08-08-2022 11:07-0500 Diastolic blood pressure 71 mm[Hg] Dr. Zaida Gaston Work Phone: 3(622)715-728985 [place] [address] 08-08-2022 11:07-0500 Heart rate 86 /min Dr. Zaida Gaston Work Phone: 2(464)863-662785 [place] [address] 08-08-2022 11:07-0500 Respiratory rate 17 /min Dr. Zaida Gaston Work Phone: 3(739)108-415185 [place] [address] 08-08-2022 11:07-0500 Systolic blood pressure 147 mm[Hg] Dr. Zaida Gaston Work Phone: 6(865)482-325985 [place] [address] 08-03-2022 11:24-0500 Body height 172.7 cm [facility] Work Phone: [facility] 08-03-2022 11:24-0500 Body temperature 98.91 [degF] [facility] Work Phone: [facility] 08-03-2022 11:24-0500 Body weight 101.33 kg [facility] Work Phone: [facility] 08-03-2022 11:24-0500 Diastolic blood pressure 64 mm[Hg] [facility] Work Phone: [facility] 08-03-2022 11:24-0500 Heart rate 82 /min [facility] Work Phone: [facility] 08-03-2022 11:24-0500 SaO2% (BldA) [Mass fraction] 94 % [facility] Work Phone: [facility] 08-03-2022 11:24-0500 Systolic blood pressure 117 mm[Hg] [facility] Work Phone: [facility] 07-26-2022 10:35-0500 Body mass index (BMI) [Ratio] 34.2 kg/m2 Dr. Zaida Gaston Work Phone: [facility] 07-13-2022 15:46-0400 Body height 172.7 cm Zaida Gaston MD Work Phone: [facility] 07-13-2022 15:46-0400 Body temperature 98.2 [degF] Zaida Gaston MD Work Phone: [facility] 07-13-2022 15:46-0400 Body weight 101.15 kg Zaida Gaston MD Work Phone: [facility] 07-13-2022 15:46-0400 Diastolic blood pressure 80 mm[Hg] Zaida Gaston MD Work Phone: [facility] 07-13-2022 15:46-0400 Heart rate 92 /min Zaida Gaston MD Work Phone: [facility] 07-13-2022 15:46-0400 Respiratory rate 14 /min Zaida Gaston MD Work Phone: [facility] 07-13-2022 15:46-0400 SaO2% (BldA) [Mass fraction] 96 % Zaida Gaston MD Work Phone: [facility] 07-13-2022 15:46-0400 Systolic blood pressure 152 mm[Hg] Zaida Gaston MD Work Phone: [facility] 07-10-2022 00:27-0400 Body weight 102.[address] Zaida Gaston Work Phone: [facility] 07-09-2022 15:36-0400 Body temperature 97.8 [degF] Dr. Zaida Gaston Work Phone: [facility] 07-09-2022 15:36-0400 Diastolic blood pressure 83 mm[Hg] Dr. Zaida Gaston Work Phone: [facility] 07-09-2022 15:36-0400 Heart rate 78 /min Dr. Zaida Gaston Work Phone: [facility] 07-09-2022 15:36-0400 Respiratory rate 20 /min Dr. Zaida Gaston Work Phone: [facility] 07-09-2022 15:36-0400 Systolic blood pressure 142 mm[Hg] Dr. Zaida Gaston Work Phone: [facility] 07-05-2022 11:55-0400 Body height 172.7 cm [facility] Work Phone: [facility] 07-05-2022 11:55-0400 Body temperature 98.2 [degF] [facility] Work Phone: [facility] 07-05-2022 11:55-0400 Body weight 99.79 kg [facility] Work Phone: [facility] 07-05-2022 11:55-0400 Diastolic blood pressure 65 mm[Hg] [facility] Work Phone: [facility] 07-05-2022 11:55-0400 Heart rate 83 /min [facility] Work Phone: [facility] 07-05-2022 11:55-0400 SaO2% (BldA) [Mass fraction] 96 % [facility] Work Phone: [facility] 07-05-2022 11:55-0400 Systolic blood pressure 114 mm[Hg] [facility] Work Phone: [facility] 06-28-2022 09:05-0400 Body mass index (BMI) [Ratio] 34.2 kg/m2 Dr. Zaida Gaston Work Phone: [facility] 06-09-2022 01:21-0400 Body weight 102.[address] Zaida Gaston Work Phone: [facility] 06-08-2022 11:37-0400 Body height 172.7 cm [facility] Work Phone: [facility] 06-08-2022 11:37-0400 Body temperature 99.3 [degF] [facility] Work Phone: [facility] 06-08-2022 11:37-0400 Body weight 96.62 kg [facility] Work Phone: [facility] 06-08-2022 11:37-0400 Diastolic blood pressure 72 mm[Hg] [facility] Work Phone: [facility] 06-08-2022 11:37-0400 Heart rate 100 /min [facility] Work Phone: [facility] 06-08-2022 11:37-0400 SaO2% (BldA) [Mass fraction] 97 % [facility] Work Phone: [facility] 06-08-2022 11:37-0400 Systolic blood pressure 133 mm[Hg] [facility] Work Phone: [facility] 06-07-2022 09:01-0400 Body mass index (BMI) [Ratio] 34.2 kg/m2 Dr. Zaida Gaston Work Phone: [facility] Work Phone: 06-07-2022 09:01-0400 Body temperature 97.8 [degF] Dr. Zaida Gaston Work Phone: [facility] Work Phone: 06-07-2022 09:01-0400 Diastolic blood pressure 73 mm[Hg] Dr. Zaida Gaston Work Phone: [facility] Work Phone: 06-07-2022 09:01-0400 Heart rate 63 /min Dr. Zaida Gaston Work Phone: [facility] Work Phone: 06-07-2022 09:01-0400 Systolic blood pressure 117 mm[Hg] Dr. Zaida Gaston Work Phone: [facility] Work Phone: 05-10-2022 10:22-0400 Respiratory rate 16 /min Dr. Zaida Gaston Work Phone: [facility] Work Phone: 05-10-2022 00:31-0400 Body weight 102.[address] Zaida Gaston Work Phone: [facility] Work Phone: 05-09-2022 13:36-0400 Body mass index (BMI) [Ratio] 34.2 kg/m2 Dr. Zaida Gaston Work Phone: [facility] Work Phone: 05-09-2022 13:36-0400 Body temperature 97.1 [degF] Dr. Zaida Gaston Work Phone: [facility] Work Phone: 05-09-2022 13:36-0400 Diastolic blood pressure 74 mm[Hg] Dr. Zaida Gaston Work Phone: [facility] Work Phone: 05-09-2022 13:36-0400 Heart rate 92 /min Dr. Zaida Gaston Work Phone: [facility] Work Phone: 05-09-2022 13:36-0400 Respiratory rate 16 /min Dr. Zaida Gaston Work Phone: [facility] Work Phone: 05-09-2022 13:36-0400 Systolic blood pressure 145 mm[Hg] Dr. Zaida Gaston Work Phone: [facility] Work Phone: 04-12-2022 09:08-0400 Body mass index (BMI) [Ratio] 34.2 kg/m2 Dr. Zaida Gaston Work Phone: [facility] Work Phone: 04-12-2022 09:08-0400 Body temperature 97.5 [degF] Dr. Zaida Gaston Work Phone: [facility] Work Phone: 04-12-2022 09:08-0400 Diastolic blood pressure 76 mm[Hg] Dr. Zaida Gaston Work Phone: [facility] Work Phone: 04-12-2022 09:08-0400 Heart rate 101 /min Dr. Zaida Gaston Work Phone: [facility] Work Phone: 04-12-2022 09:08-0400 Systolic blood pressure 124 mm[Hg] Dr. Zaida Gaston Work Phone: [facility] Work Phone: 04-10-2022 16:15-0400 Body height 172.7 cm Zaida Gaston MD Work Phone: [facility] 04-10-2022 16:15-0400 Body temperature 99.3 [degF] Zaida Gaston MD Work Phone: [facility] 04-10-2022 16:15-0400 Body weight 94.8 kg Zaida Gaston MD Work Phone: [facility] 04-10-2022 16:15-0400 Diastolic blood pressure 60 mm[Hg] Zaida Gaston MD Work Phone: [facility] 04-10-2022 16:15-0400 Heart rate 97 /min Zaida Gaston MD Work Phone: [facility] 04-10-2022 16:15-0400 Respiratory rate 12 /min Zaida Gaston MD Work Phone: [facility] 04-10-2022 16:15-0400 SaO2% (BldA) [Mass fraction] 95 % Zaida Gaston MD Work Phone: [facility] 04-10-2022 16:15-0400 Systolic blood pressure 122 mm[Hg] Zaida Gaston MD Work Phone: [facility] 04-09-2022 00:28-0400 Body weight 102.[address] Zaida Gaston Work Phone: [facility] Work Phone: 04-09-2022 00:28-0400 Respiratory rate 20 /min Dr. Zaida Gaston Work Phone: [facility] Work Phone: 04-05-2022 08:39-0400 Body mass index (BMI) [Ratio] 34.2 kg/m2 Dr. Zaida Gaston Work Phone: [facility] Work Phone: 04-05-2022 08:39-0400 Body temperature 98.4 [degF] Dr. Zaida Gaston Work Phone: [facility] Work Phone: 04-05-2022 08:39-0400 Diastolic blood pressure 82 mm[Hg] Dr. Zaida Gaston Work Phone: [facility] Work Phone: 04-05-2022 08:39-0400 Heart rate 95 /min Dr. Zaida Gaston Work Phone: [facility] Work Phone: 04-05-2022 08:39-0400 Respiratory rate 20 /min Dr. Zaida Gaston Work Phone: [facility] Work Phone: 04-05-2022 08:39-0400 Systolic blood pressure 186 mm[Hg] Dr. Zaida Gaston Work Phone: [facility] Work Phone: 03-28-2022 10:39-0400 Body temperature 98.2 [degF] Dr. Zaida Gaston Work Phone: [facility] Work Phone: 03-28-2022 10:39-0400 Diastolic blood pressure 87 mm[Hg] Dr. Zaida Gaston Work Phone: [facility] Work Phone: 03-28-2022 10:39-0400 Heart rate 85 /min Dr. Zaida Gaston Work Phone: [facility] Work Phone: 03-28-2022 10:39-0400 Respiratory rate 16 /min Dr. Zaida Gaston Work Phone: [facility] Work Phone: 03-28-2022 10:39-0400 SaO2% (BldA) [Mass fraction] 96 % Dr. Zaida Gaston Work Phone: [facility] Work Phone: 03-28-2022 10:39-0400 Systolic blood pressure 138 mm[Hg] Dr. Zaida Gaston Work Phone: [facility] Work Phone: 03-28-2022 06:00-0400 Body weight 96.[address] Zaida Gaston Work Phone: [facility] Work Phone: 03-27-2022 13:38-0400 Body height 172.[address] Zaida Gaston Work Phone: [facility] Work Phone: 03-24-2022 12:00-0400 Inhaled oxygen flow rate 2 L/min Dr. Zaida Gaston Work Phone: [facility] Work Phone: 03-24-2022 03:32-0400 Body mass index (BMI) [Ratio] 31.7 kg/m2 Dr. Zaida Gaston Work Phone: [facility] Work Phone: 03-24-2022 03:12-0400 Body temperature 100.2 [degF] Dr. Zaida Gaston Work Phone: [facility] Work Phone: 03-24-2022 03:12-0400 Diastolic blood pressure 61 mm[Hg] Dr. Zaida Gaston Work Phone: [facility] Work Phone: 03-24-2022 03:12-0400 Heart rate 107 /min Dr. Zaida Gaston Work Phone: [facility] Work Phone: 03-24-2022 03:12-0400 Respiratory rate 20 /min Dr. Zaida Gaston Work Phone: [facility] Work Phone: 03-24-2022 03:12-0400 SaO2% (BldA) [Mass fraction] 92 % Dr. Zaida Gaston Work Phone: [facility] Work Phone: 03-24-2022 03:12-0400 Systolic blood pressure 144 mm[Hg] Dr. Zaida Gaston Work Phone: [facility] Work Phone: 03-24-2022 01:02-0400 Body height 172.[address] Zaida Gaston Work Phone: [facility] Work Phone: 03-24-2022 01:02-0400 Body mass index (BMI) [Ratio] 36.1 kg/m2 Dr. Zaida Gaston Work Phone: [facility] Work Phone: 03-24-2022 01:02-0400 Body weight 107.[address] Zaida Gaston Work Phone: [facility] Work Phone: 03-13-2022 10:06-0400 Body mass index (BMI) [Ratio] 34.2 kg/m2 Dr. Zaida Gaston Work Phone: [facility] Work Phone: 03-13-2022 10:06-0400 Body temperature 98.2 [degF] Dr. Zaida Gaston Work Phone: [facility] Work Phone: 03-13-2022 10:06-0400 Diastolic blood pressure 77 mm[Hg] Dr. Zaida Gaston Work Phone: [facility] Work Phone: 03-13-2022 10:06-0400 Heart rate 89 /min Dr. Zaida Gaston Work Phone: [facility] Work Phone: 03-13-2022 10:06-0400 Respiratory rate 16 /min Dr. Zaida Gaston Work Phone: [facility] Work Phone: 03-13-2022 10:06-0400 Systolic blood pressure 137 mm[Hg] Dr. Zaida Gaston Work Phone: [facility] Work Phone: 03-09-2022 00:36-0400 Body weight 102.[address] Zaida Gaston Work Phone: [facility] Work Phone: 03-08-2022 14:11-0400 Body height 172.7 cm [facility] Work Phone: [facility] 03-08-2022 14:11-0400 Body temperature 97.59 [degF] [facility] Work Phone: [facility] 03-08-2022 14:11-0400 Body weight 99.16 kg [facility] Work Phone: [facility] 03-08-2022 14:11-0400 Diastolic blood pressure 72 mm[Hg] [facility] Work Phone: [facility] 03-08-2022 14:11-0400 Heart rate 88 /min [facility] Work Phone: [facility] 03-08-2022 14:11-0400 SaO2% (BldA) [Mass fraction] 100 % [facility] Work Phone: [facility] 03-08-2022 14:11-0400 Systolic blood pressure 145 mm[Hg] [facility] Work Phone: [facility] 03-06-2022 10:13-0400 Body mass index (BMI) [Ratio] 34.2 kg/m2 Dr. Zaida Gaston Work Phone: [facility] Work Phone: 03-06-2022 10:13-0400 Body temperature 96.9 [degF] Dr. Zaida Gaston Work Phone: [facility] Work Phone: 03-06-2022 10:13-0400 Diastolic blood pressure 83 mm[Hg] Dr. Zaida Gaston Work Phone: [facility] Work Phone: 03-06-2022 10:13-0400 Heart rate 83 /min Dr. Zaida Gaston Work Phone: [facility] Work Phone: 03-06-2022 10:13-0400 Systolic blood pressure 138 mm[Hg] Dr. Zaida Gaston Work Phone: [facility] Work Phone: 02-07-2022 01:03-0400 Body weight 102.[address] Zaida Gaston Work Phone: [facility] Work Phone: 02-07-2022 01:03-0400 Respiratory rate 16 /min Dr. Zaida Gaston Work Phone: [facility] Work Phone: 02-06-2022 10:03-0400 Body mass index (BMI) [Ratio] 34.2 kg/m2 Dr. Zaida Gaston Work Phone: [facility] Work Phone: 02-06-2022 10:03-0400 Body temperature 97.8 [degF] Dr. Zaida Gaston Work Phone: [facility] Work Phone: 02-06-2022 10:03-0400 Diastolic blood pressure 81 mm[Hg] Dr. Zaida Gaston Work Phone: [facility] Work Phone: 02-06-2022 10:03-0400 Heart rate 87 /min Dr. Zaida Gaston Work Phone: [facility] Work Phone: 02-06-2022 10:03-0400 Respiratory rate 16 /min Dr. Zaida Gaston Work Phone: [facility] Work Phone: 02-06-2022 10:03-0400 Systolic blood pressure 152 mm[Hg] Dr. Zaida Gaston Work Phone: [facility] Work Phone: 01-19-2022 10:41-0400 Body height 172.[address] Zaida Gaston Work Phone: [facility] Work Phone: 01-19-2022 10:41-0400 Body mass index (BMI) [Ratio] 33.8 kg/m2 Dr. Zaida Gaston Work Phone: [facility] Work Phone: 01-19-2022 10:41-0400 Body weight 100.[address] Zaida Gaston Work Phone: [facility] Work Phone: 01-19-2022 10:41-0400 Diastolic blood pressure 68 mm[Hg] Dr. Zaida Gaston Work Phone: [facility] Work Phone: 01-19-2022 10:41-0400 Heart rate 96 /min Dr. Zaida Gaston Work Phone: [facility] Work Phone: 01-19-2022 10:41-0400 Respiratory rate 16 /min Dr. Zaida Gaston Work Phone: [facility] Work Phone: 01-19-2022 10:41-0400 Systolic blood pressure 152 mm[Hg] Dr. Zaida Gaston Work Phone: [facility] Work Phone: 01-19-2022 10:41-0400 Body height 172.[address] Zaida Gaston Work Phone: [facility] Work Phone: 01-19-2022 10:41-0400 Body mass index (BMI) [Ratio] 33.8 kg/m2 Dr. Zaida Gaston Work Phone: [facility] Work Phone: 01-19-2022 10:41-0400 Body weight 100.[address] Zaida Gaston Work Phone: [facility] Work Phone: 01-19-2022 10:41-0400 Diastolic blood pressure 68 mm[Hg] Dr. Zaida Gaston Work Phone: [facility] Work Phone: 01-19-2022 10:41-0400 Heart rate 96 /min Dr. Zaida Gaston Work Phone: [facility] Work Phone: 01-19-2022 10:41-0400 Respiratory rate 16 /min Dr. Zaida Gaston Work Phone: [facility] Work Phone: 01-19-2022 10:41-0400 Systolic blood pressure 152 mm[Hg] Dr. Zaida Gaston Work Phone: [facility] Work Phone: 01-16-2022 09:46-0400 Body mass index (BMI) [Ratio] 34.2 kg/m2 Dr. Zaida Gaston Work Phone: [facility] Work Phone: 01-16-2022 09:46-0400 Body temperature 98.2 [degF] Dr. Zaida Gaston Work Phone: [facility] Work Phone: 01-16-2022 09:46-0400 Diastolic blood pressure 77 mm[Hg] Dr. Zaida Gaston Work Phone: [facility] Work Phone: 01-16-2022 09:46-0400 Heart rate 114 /min Dr. Zaida Gaston Work Phone: [facility] Work Phone: 01-16-2022 09:46-0400 Respiratory rate 16 /min Dr. Zaida Gaston Work Phone: [facility] Work Phone: 01-16-2022 09:46-0400 Systolic blood pressure 153 mm[Hg] Dr. Zaida Gaston Work Phone: [facility] Work Phone: 01-07-2022 00:44-0400 Body weight 102.[address] Zaida Gaston Work Phone: [facility] Work Phone: 01-02-2022 09:59-0400 Body mass index (BMI) [Ratio] 34.2 kg/m2 Dr. Zaida Gaston Work Phone: [facility] Work Phone: 12-26-2021 09:01-0400 Body height 172.[address] Zaida Gaston Work Phone: [facility] Work Phone: 12-26-2021 09:01-0400 Body temperature 96.8 [degF] Dr. Zaida Gaston Work Phone: [facility] Work Phone: 12-26-2021 09:01-0400 Body weight 102.[address] Zaida Gaston Work Phone: [facility] Work Phone: 12-26-2021 09:01-0400 Diastolic blood pressure 69 mm[Hg] Dr. Zaida Gaston Work Phone: [facility] Work Phone: 12-26-2021 09:01-0400 Heart rate 87 /min Dr. Zaida Gaston Work Phone: [facility] Work Phone: 12-26-2021 09:01-0400 Respiratory rate 18 /min Dr. Zaida Gaston Work Phone: [facility] Work Phone: 12-26-2021 09:01-0400 Systolic blood pressure 153 mm[Hg] Dr. Zaida Gaston Work Phone: [facility] Work Phone: 12-08-2021 11:57-0400 Body height 172.7 cm [facility] Work Phone: [facility] 12-08-2021 11:57-0400 Body temperature 99.19 [degF] [facility] Work Phone: [facility] 12-08-2021 11:57-0400 Body weight 99.79 kg [facility] Work Phone: [facility] 12-08-2021 11:57-0400 Diastolic blood pressure 81 mm[Hg] [facility] Work Phone: [facility] 12-08-2021 11:57-0400 Heart rate 84 /min [facility] Work Phone: [facility] 12-08-2021 11:57-0400 SaO2% (BldA) [Mass fraction] 97 % [facility] Work Phone: [facility] 12-08-2021 11:57-0400 Systolic blood pressure 150 mm[Hg] [facility] Work Phone: [facility] 09-20-2021 13:54-0500 Body temperature 97.3 [degF] Dr. Zaida Gaston Work Phone: [facility] Work Phone: 09-20-2021 13:54-0500 Diastolic blood pressure 58 mm[Hg] Dr. Zaida Gaston Work Phone: [facility] Work Phone: 09-20-2021 13:54-0500 Heart rate 77 /min Dr. Zaida Gaston Work Phone: [facility] Work Phone: 09-20-2021 13:54-0500 Respiratory rate 18 /min Dr. Zaida Gaston Work Phone: [facility] Work Phone: 09-20-2021 13:54-0500 SaO2% (BldA) [Mass fraction] 93 % Dr. Zaida Gaston Work Phone: [facility] Work Phone: 09-20-2021 13:54-0500 Systolic blood pressure 113 mm[Hg] Dr. Zaida Gaston Work Phone: [facility] Work Phone: 09-18-2021 09:55-0500 Body height 172.[address] Zaida Gaston Work Phone: [facility] Work Phone: 09-18-2021 09:55-0500 Body weight 91.[address] Zaida Gaston Work Phone: [facility] Work Phone: 09-17-2021 22:38-0500 Body mass index (BMI) [Ratio] 30.8 kg/m2 Dr. Zaida Gaston Work Phone: [facility] Work Phone: 09-14-2021 12:15-0500 Heart rate 88 /min Dr. Zaida Gaston Work Phone: [facility] Work Phone: 09-14-2021 12:15-0500 Respiratory rate 17 /min Dr. Zaida Gaston Work Phone: [facility] Work Phone: 09-14-2021 12:15-0500 SaO2% (BldA) [Mass fraction] 96 % Dr. Zaida Gaston Work Phone: [facility] Work Phone: 09-14-2021 07:11-0500 Body mass index (BMI) [Ratio] 33.2 kg/m2 Dr. Zaida Gaston Work Phone: [facility] Work Phone: 09-14-2021 07:11-0500 Body temperature 97 [degF] Dr. Zaida Gaston Work Phone: [facility] Work Phone: 09-14-2021 07:11-0500 Body weight [address] Zaida Gaston Work Phone: [facility] Work Phone: 09-14-2021 07:11-0500 Diastolic blood pressure 66 mm[Hg] Dr. Zaida Gaston Work Phone: [facility] Work Phone: 09-14-2021 07:11-0500 Systolic blood pressure 117 mm[Hg] Dr. Zaida Gaston Work Phone: [facility] Work Phone: Encounters Encounter Date Encounter Type Care Provider Facility Start: 05-14-2025 End: 05-14-2025 Office outpatient visit 25 minutes Mariza Vences GLOBAL COMPENSATION DIRECTOR.SENIOR NET SOFTWARE DEVELOPER Work Phone: Urology Comment on above: Nephrolithiasis (Sandrine deep Dx); Kidney replaced by transplant (HCC) Start: 05-14-2025 ambulatory AMRIZA VENCES Facility:[facility] Start: 05-13-2025 End: 05-13-2025 Telephone encounter Zaida Gaston MD Work Phone: NOC Comment on above: Transition Of Care Start: 05-05-2025 End: 05-10-2025 ambulatory Meganfarideh Montejo GLOBAL COMPENSATION DIRECTOR.SENIOR NET SOFTWARE DEVELOPER Work Phone: [facility] Start: 05-04-2025 End: 05-04-2025 Telephone encounter Zaida Gaston MD Work Phone: NOC Comment on above: Transition Of Care Start: 04-21-2025 End: 04-21-2025 Telephone encounter Kindra Martinez automotive service professional Comment on above: Retread Technician - O ther Start: 04-18-2025 End: 05-02-2025 Evaluation and management of inpatient CHUY SANTIAGO Facility:[facility] Start: 04-17-2025 Dr. Shruti Jara MD - [facility] Work Phone: Start: 04-16-2025 ambulatory [...] 04-12-2025 End: 04-12-2025 Telephone encounter Verna Jensen [facility] Work Phone: [facility] Comment on above: Missed Appointment ( Primary care reschedule) Start: 04-07-2025 End: 04-07-2025 Telephone encounter Luzmaria Bagley MSW Navigation Start: 04-05-2025 End: 04-08-2025 Refill Zaida Gaston MD Work Phone: [facility] Start: 04-04-2025 End: 04-04-2025 Dr. Chuy Santiago MD -Emergency Departmen t Work Phone: Start: 04-04-2025 End: 04-04-2025 Emergency department patient visit Dr. Zaida Gaston MD Work Phone: -Emergency Department Work Phone: Start: 03-15-2025 End: 03-15-2025 Telephone encounter 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 APRN.SENIOR NET SOFTWARE DEVELOPER Work Phone: [facility] Comment on above: Medication Problem Follow Up Start: 03-10-2025 End: 03-10-2025 Dr. Byron Saldana DO -Emergency Departca nt Work Phone: Start: 03-10-2025 End: 03-10-2025 Emergency department patient visit Dr. Zaida Gaston MD Work Phone: -Emergency Department Work Phone: Start: 03-08-2025 End: 03-08-2025 Telephone encounter Verna Jensen [facility] Work Phone: [facility] Comment on above: Diabetes Start: 03-08-2025 End: 03-08-2025 ambulatory ZAIDA GASTON Facility:[facility] Start: 03-08-2025 End: 03-08-2025 Patient encounter procedure Verna Jensen [facility] Work Phone: [facility] Comment on above: Type 1 diabetes aggie itus on insulin therapy (HCC) (Primary Dx); Medication management Start: 03-08-2025 End: 03-08-2025 Telemedicine consultation with patient Verna Jensen [facility] Work Phone: [facility] Start: 02-25-2025 End: 02-25-2025 Telephone encounter Xiang Deutsch RN Angio Comment on above: IR Outpatient Tube A ppointment Request Start: 02-25-2025 End: 02-25-2025 ambulatory DONA MARTINEZ Facility:[facility] Start: 02-15-2025 End: 02-15-2025 Telephone encounter Verna Jensen [facility] Work Phone: [facility] Comment on [...] End: 02-07-2025 [facility] Work [facility]: Start: 02-07-2025 End: 02-07-2025 [...] Start: 02-05-2025 End: 02-05-2025 ambulatory ZAIDA GASTON Facility:[facility] Start: 02-04-2025 End: 02-04-2025 Telephone encounter Zaida Gaston MD Work Phone: NOC Comment on above: Transition Of Care Start: 02-03-2025 End: 02-03-2025 Telephone encounter Danni Singh RN Angio Comment on above: Follow Up Start: 02-02-2025 End: 02-02-2025 Telephone encounter Bon Concepcion RN Urology Start: 01-27-2025 End: 01-29-2025 Evaluation and management of inpatient YONY WILL Facility:[facility] Start: 01-26-2025 End: 01-27-2025 Dr. Yony [facility]is [facility] Work Phone: Start: 01-26-2025 End: 01-27-2025 Emergency department patient visit Dr. Zaida Gaston MD Work Phone: -Emergency Department Work Phone: Start: 01-06-2025 End: 03-08-2025 Follow-up encounter 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 APRN.SENIOR NET SOFTWARE DEVELOPER Work Phone: [facility] Start: 01-01-2025 End: 01-01-2025 ambulatory [facility] Facility:[facility] Start: 12-30-2024 End: 12-30-2024 ambulatory DELIA KAUFMAN Facility:[facility] Start: 12-03-2024 ambulatory [facility] Start: 11-19-2024 End: 11-19-2024 Emergency department patient visit Dr. Zaida Gaston MD Work Phone: -Emergency Department Work Phone: Start: 11-11-2024 ambulatory [facility] Facility[facility] Start: 09-28-2024 End: 09-28-2024 Office outpatient visit 25 minutes Zaida Gaston MD Work Phone: [facility] Comment on above: Hypertension goal BP (blood pressure) < 140/90 (Primary Dx); Type 1 diabetes mellitus on insulin therapy (HCC); Moderate episode of recurrent major depressive disorder (HCC); Vitamin D deficiency; Gastroesophageal reflux disease without esophagitis Start: 09-28-2024 End: 09-28-2024 ambulatory [facility] Facility:[facility] Start: 09-28-2024 End: 09-28-2024 Refill Alana Kent APRN.SENIOR NET SOFTWARE DEVELOPER Work Phone: [facility]plant Center Comment on above: Refill Request Start: 09-08-2024 End: 09-15-2024 ambulatory Matty Lewis [facility] Start: 09-08-2024 End: 09-15-2024 Patient encounter procedure Matty Lewis MA [facility] Comment on above: Population Health Na vigation Outreach ([facility] ) Start: 07-31-2024 End: 07-31-2024 Refill Zaida Gaston MD Work Phone: [facility] Comment on above: Refill Request Start: 07-28-2024 End: 07-28-2024 Refill Alana Kent APRN.CNP Work Phone: [facility] Comment on above: Refill Request Start: 07-28-2024 End: 07-28-[address] Steve Durand MD -[facility] Work Phone: Start: 07-28-2024 End: 07-28-2024 Refill Chyna Conroy PA-C Work Phone: [facility] Center Start: 07-13-2024 End: 07-13-2024 ambulatory Matty Lewis MA [facility] Comment on above: Stomach Medication Start: 07-13-2024 End: 07-13-2024 Patient encounter procedure Matty Lewis MA [facility] Comment on above: Population Health Na vigation Outreach [facility] Refill Request Start: 06-23-2024 End: 06-23-2024 Telephone encounter Amanda RUIZ Work Phone: Transplant Center Comment on above: Follow Up Start: 06-18-2024 End: 06-18-2024 Telephone encounter Amanda RUIZ Work Phone: Transplant Center Comment on above: Follow Up Start: 06-18-2024 End: 06-18-2024 ambulatory ZAIDA GASTON Facility:[facility] Start: 06-18-2024 End: 06-18-2024 Office outpatient visit 25 minutes Zaida Gaston MD Work Phone: Internal [facility] [place] Comment on above: Type 1 diabetes aggie itus on insulin therapy (HCC) (Primary Dx); Encounter for immunization; Hypertension goal BP (blood pressure) < 140/90; Other hyperlipidemia; Stage 3a chronic kidney disease (HCC) Start: 06-16-2024 End: 06-18-2024 Telephone encounter Alana Kent APRN.SENIOR NET SOFTWARE DEVELOPER Work Phone: Transplant Center Comment on above: Medication Problem Start: 06-03-2024 End: 06-03-2024 ambulatory Verna [facility] Work Phone: [facility] Start: 06-03-2024 End: 06-03-2024 Patient encounter procedure Verna [facility] Work Phone: [facility] Start: 05-14-2024 End: 05-27-2024 Telephone encounter Zaida Gaston MD Work Phone: Family [facility] Comment on above: Patient Update; Requ est for new Dexcom Start: 04-30-2024 End: 04-30-2024 ambulatory Zaida Gaston Facility:[facility] Start: 04-01-2024 Telephone encounter Lali Ramires MD Work Phone: General Surgery Comment on above: Medication Problem Start: 04-01-2024 ambulatory AMARA Escamilla ty:[facility] Start: 04-01-2024 End: 04-01-2024 Subsequent hospital visit by physician Lali Raman MD Work Phone: [facility] Endoscopy Comment on above: Diarrhea, unspecifie d type [R19.7] Start: 03-24-2024 End: 03-24-2024 Patient encounter procedure Nia James APRN.SENIOR NET SOFTWARE DEVELOPER Work Phone: General Surgery Comment on above: Diarrhea, unspecifie d type (Primary Dx); Gastroesophageal reflux disease without esophagitis; FH: colon cancer in first degree relative <60 years old Start: 03-18-2024 End: 03-18-2024 Patient encounter procedure 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 APRN.SENIOR NET SOFTWARE DEVELOPER Work Phone: Internal [facility] [place] Comment on above: Moderate episode of recurrent major depressive disorder (HCC) (Primary Dx) Start: 02-26-2024 Telephone encounter Zaida blanton MD Work Phone: Internal Medicine [place] Comment on above: Fax Request Start: 01-22-2024 End: 01-22-2024 Patient encounter procedure Delia Shae AUGUST Work Phone: [facility] [place] Comment on above: Type 1 diabetes aggie itus on insulin therapy (HCC) (Primary Dx); Moderate episode of recurrent major depressive disorder (HCC); Hypertension goal BP (blood pressure) < 140/90; Kidney transplant recipient; Stage 3a chronic kidney disease (HCC); 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 Zaida Gaston Work Phone: [facility] Work Phone: Start: 01-14-2024 End: 01-14-[address] Zaida Gaston Work Phone: [facility] Work Phone: Start: 01-13-2024 End: 01-13-2024 Patient encounter procedure [facility] Work Phone: Transplant Center Comment on above: Kidney replaced by t ransplant (Primary Dx) Start: 01-03-2024 End: 01-03-[address] Zaida Gaston Work Phone: [facility] Work Phone: Start: 01-03-2024 End: 01-03-[address] Zaida Gaston Work Phone: [facility]-Laboratory Work Phone: Start: 01-02-2024 End: 01-02-[address] Zaida Gaston Work Phone: [facility] Endocrinology Work Phone: Start: 12-13-2023 Refill Xiang Perez PA-C Work Phone: [facility] [place] Comment on above: Refill Request Start: 11-27-2023 Refill Conchis Sheets RN [facility] [place] Comment on above: Rx Refills (TAC leve l 2.8/) Start: 11-26-2023 End: 11-26-2023 Patient encounter procedure Xiang Perez PA-C Work Phone: [facility] [place] Comment on above: Diarrhea, unspecifie d type (Primary Dx); Mixed hyperlipidemia; Kidney transplant recipient; Diabetic polyneuropathy associated with type 2 diabetes mellitus (HCC) Start: 11-25-2023 ambulatory Zaida Ordonez Work Phone: Internal [facility] [place] Comment on above: Diarrhea Start: 11-11-2023 End: 11-11-[address] Zaida Gaston Work Phone: [facility] Work Phone: Start: 10-30-2023 Telephone encounter Zaida blanton MD Work Phone: [facility] [place] Comment on above: Orders Start: 10-29-2023 Refill Oscar Mas PA-C Work Phone: Urology Comment on above: Refill Request Start: 10-24-2023 End: 10-24-[address] Zaida Gaston Work Phone: [facility] Work Phone: Start: 10-14-2023 Refill Zaida Ordonez Work Phone: [facility] [place] Comment on above: Refill Request Start: 10-11-2023 Refill Zaida Ordonez Work Phone: [facility] [place] Comment on above: Refill Request Start: 10-10-2023 ambulatory Delia ArangoSENIOR NET SOFTWARE DEVELOPER Work Phone: Internal Medicine [place] Comment on above: Bupropion Start: 09-18-2023 End: 09-18-2023 Patient encounter procedure 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 APRN.SENIOR NET SOFTWARE DEVELOPER Work Phone: [facility] [place] Comment on above: Type 1 diabetes aggie itus on insulin therapy (HCC) (Primary Dx); Kidney transplant recipient; Hypertension goal BP (blood pressure) < 140/90; Moderate episode of recurrent major depressive disorder (HCC); LUANNE (obstructive sleep apnea) Start: 08-27-2023 Telephone encounter Zaida blanton MD Work Phone: [facility] Comment on above: CGM forms Start: 08-22-2023 [...] Immunization Clinic Nurse [place] Work Phone: Family [facility] Comment on above: Arrived Start: 07-01-2023 Refill Zaida Ordonez Work Phone: Internal [facility] [place] Comment on above: Refill Request (st ging to new pharmacy) Start: 05-21-2023 End: 05-21-2023 Patient encounter procedure Xiang Perez PA-C Work Phone: [facility] [place] Comment on above: Diabetic polyneuropa thy associated with type 2 diabetes mellitus (HCC) (Primary Dx); Moderate episode of recurrent major depressive disorder (HCC); Kidney transplant recipient; Elevated alkaline phosphatase level; Erectile dysfunction, unspecified erectile dysfunction type; Mixed hyperlipidemia Start: 04-09-2023 End: 04-09-2023 Patient encounter [facility] Work Phone: Vascul[facility] Surgery Comment on above: Pain of right lower extremity Start: 04-03-2023 Refill Zaida Ordonez Work Phone: Family [facility] Comment on above: Refill Request Start: 03-20-2023 Refill Chelsea Ryan MD Work Phone: Transplant Center Comment on above: Refill Request Start: 03-14-2023 Orders Only Lg brown MD Work Phone: Transplant Center Comment on above: Encounter for afterc are following kidney transplant (Primary Dx) Start: 03-13-2023 End: 03-14-2023 Emergency department patient visit Dr. Zaida Gaston Work Phone: [facility]-Emergency Department Work Phone: Start: 02-25-2023 End: 02-25-2023 Patient encounter procedure Zaida Gaston MD Work Phone: [facility] [place] Comment on above: Hypertension goal BP (blood pressure) < 140/90 (Primary Dx); Other hyperlipidemia; Type 1 diabetes mellitus on insulin therapy (HCC); Moderate episode of recurrent major depressive disorder (HCC); Diarrhea, unspecified type; Pain of right lower extremity; Left leg claudication (HCC); Viral wart on finger Start: 02-21-2023 End: 02-21-[address] Zaida Gaston Work Phone: [facility] Work Phone: Start: 01-17-2023 Orders Only Rosi Casillas RN Trans plant Center Comment on above: Kidney replaced by t ransplant (Primary Dx) Start: 01-16-2023 Telephone encounter Danni Nguyen Urology Comment on above: Preparations For Pro cedures Start: 01-14-2023 End: 01-14-[address] Zaida Gaston Work Phone: [facility] Endocrinology Start: 01-11-2023 End: 01-11-[address] Zaida Gaston Work Phone: [facility] Work Phone: Start: 01-11-2023 End: 01-11-[address] Zaida Gaston Work Phone: [facility]-Laboratory Start: 01-02-2023 Telephone encounter Juvencio Haji RN [facility] Comment on above: Results Start: 12-31-2022 End: 12-31-2022 Patient encounter procedure [facility] Work Phone: Transplant Center Comment on above: Kidney replaced by t ransplant (Primary Dx); Encounter for aftercare following kidney transplant; Immunosuppressive management encounter following kidney transplant; ILDA (acute kidney injury) ([facility]) Start: 11-23-2022 End: 11-23-2022 Patient encounter procedure Zaida Gaston MD Work Phone: [facility] [place] Comment on above: Moderate episode of recurrent major depressive disorder (HCC) (Primary Dx); 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 ([facility]); Type 1 diabetes mellitus on insulin therapy (HCC); Diabetic polyneuropathy associated with type 2 diabetes mellitus (HCC); Right leg weakness; Hypertension goal BP (blood pressure) < 140/90 Start: 11-22-2022 End: 11-22-2022 Patient encounter procedure Verna Jensen [facility] Work Phone: [facility] Comment on above: Type 1 diabetes aggie itus on insulin therapy (HCC) (Primary Dx) Start: 11-21-2022 Refill Delia Shae ArangoSENIOR NET SOFTWARE DEVELOPER Work Phone: Internal Medicine [place] Comment on above: Refill Request Start: 11-04-2022 Non-patient / Non-visit Dr. Shai Gaston Work Phone: [facility] Inpatient Physicians Start: 11-03-2022 Non-patient / Non-visit Dr. Shai Gaston Work Phone: [facility]patient Physicians Start: 11-02-2022 Non-patient / Non-visit Dr. Shai Gaston Work Phone: [facility] Start: 11-01-2022 End: 11-01-2022 Non-patient / Non-visit Dr. Zaida Gaston Work Phone: [facility] Inpatient Physicians Start: 11-01-2022 End: 11-05-2022 Evaluation and management of inpatient Dr. Zaida Gaston Work Phone: [facility]-Medical Surgical 3 Start: 11-01-2022 Admission to [facility] center Dr. Zaida Gaston Work Phone: [facility]-[employer] Start: 11-01-[address] Zaida blanton Work Phone: [facility] Work Phone: Start: 11-01-2022 End: 11-06-[address] [facility] Start: 11-01-[address] William [facility] Start: 10-18-2022 End: 10-18-[address] Zaida Gaston Work Phone: [facility] Endocrinology Start: 10-15-2022 ambulatory Verna Jensen [facility] Work Phone: [facility] Comment on above: A1c Start: 10-15-2022 E-mail encounter fro silvano caregiver Verna Jensen [facility] Work Phone: REM ENRIQUEZ Start: 10-04-2022 End: 10-04-2022 Patient encounter procedure Verna Jensen [facility] Work Phone: [facility] Comment on above: Type 1 diabetes aggie itus on insulin therapy (HCC) (Primary Dx) Start: 09-27-2022 End: 10-09-[address] Zaida Gaston Work Phone: [facility] Work Phone: Start: 09-27-2022 End: 10-09-[address] Zaida Gaston Work Phone: [facility] Start: 09-24-2022 End: 09-24-2022 Patient encounter procedure Felicita Cameron [facility] Work Phone: Endocrinology Comment on above: Type 1 diabetes aggie itus on insulin therapy (HCC) (Primary Dx) Kidney replaced by t ransplant (Primary Dx); Immunosuppressive management encounter following kidney transplant; Mixed hyperlipidemia Start: 09-11-2022 Non-patient / Non-visit Dr. Shai Gaston Work Phone: [facility] Start: 09-06-2022 End: 09-08-[address] Zaida Gaston Work Phone: [facility] Work Phone: Start: 09-06-2022 End: 09-08-[address] Zaida Gaston Work Phone: [facility] Start: 09-06-2022 End: 09-06-[address] Zaida Gaston Work Phone: [facility] Endocrinology Start: 09-05-2022 Non-patient / Non-visit Dr. Shai Gaston Work Phone: [facility] Start: 08-29-2022 Non-patient / Non-visit Dr. Shai Gaston Work Phone: [facility] Start: 08-28-2022 End: 08-28-2022 Emergency department patient visit Dr. Zaida Gaston Work Phone: [facility]-Emergency Department Start: 08-28-2022 Non-patient / Non-visit Dr. Shai Gaston Work Phone: [facility] Start: 08-28-[address] [facility] Start: 08-27-2022 Non-patient / Non-visit Dr. Shai Gaston Work Phone: [facility] Start: 08-25-2022 End: 08-25-2022 Patient encounter procedure Zaida Gaston MD Work Phone: [facility] [place] Comment on above: Diabetic ulcer of le [...] End: 08-23-2022 Patient encounter procedure Verna Jensen [facility] Work Phone: [facility] Comment on above: Type 1 diabetes aggie itus on insulin therapy (HCC) (Primary Dx); Medication management Start: 08-23-2022 Telephone encounter Verna ramirez [facility] Work Phone: [facility] Comment on above: Forms (CGM order) Start: 08-20-2022 Telephone encounter Zaida blanton MD Work Phone: [facility] [place] Comment on above: Patient Update Start: 08-20-2022 Non-patient / Non-visit Dr. Shai Gaston Work Phone: [facility] Start: 08-17-2022 End: 08-17-[address] Zaida Gaston Work Phone: [facility] Start: 08-16-2022 Non-patient / Non-visit Dr. Shai Gaston Work Phone: [facility] Start: 08-15-2022 Non-patient / Non-visit Dr. Shai Gaston Work Phone: [facility] Start: 08-09-2022 Non-patient / Non-visit Dr. Shai Gaston Work Phone: [facility] Start: 08-08-2022 Non-patient / Non-visit Dr. Shai Gaston Work Phone: [facility] Start: 08-08-2022 End: 08-08-[address] [facility] Start: 08-07-2022 Telephone encounter Zaida blanton MD Work Phone: [facility] [place] Comment on above: Release Of Medical R ecords Start: 08-07-2022 Non-patient / Non-visit Dr. Shai Gaston Work Phone: [facility] Start: 08-06-2022 Non-patient / Non-visit [facility] Gaston [facility] Start: 08-06-2022 Telephone encounter Zaida blanton MD Work Phone: [facility] [place] Comment on above: [place] [facility] requesting lab results Start: 08-03-2022 End: 08-03-2022 Patient encounter [facility] Work Phone: Trans[facility] Center Comment on above: Kidney replaced by t ransplant (Primary Dx); Encounter for aftercare following kidney transplant; Immunosuppressive management encounter following kidney transplant; Essential hypertension Start: 08-01-2022 Non-patient / Non-visit Dr. Shai Gaston Work Phone: [facility] Start: 07-31-2022 ambulatory Zaida Ordonez Work Phone: [facility] [place] Comment on above: Would like to see an Dental Services Director Start: 07-31-2022 Non-patient / Non-visit Dr. Shai Gaston Work Phone: [facility] Start: 07-30-2022 Non-patient / Non-visit Dr. Shai Gaston Work Phone: [facility] Start: 07-26-2022 Non-patient / Non-visit Dr. Shai Gaston Work Phone: [facility] Start: 07-25-2022 Non-patient / Non-visit Dr. Shai Gaston Work Phone: [facility] Start: 07-23-2022 Non-patient / Non-visit Dr. Shai Gaston Work Phone: [facility] Start: 07-19-2022 Refill Zaida Ordonez Work Phone: [facility] [place] Comment on above: Refill Request Start: 07-19-2022 Non-patient / Non-[facility] Start: 07-18-2022 Non-patient / Non-visit Dr. Shai Gaston Work Phone: [facility] Start: 07-16-2022 Non-patient / Non-visit Dr. Shai Gaston Work Phone: [facility] Start: 07-13-2022 End: 07-13-2022 Patient encounter procedure Zaida Gaston MD Work Phone: [facility] [place] Comment on above: Controlled type 2 di abetes mellitus without complication, without long-term current use of insulin (HCC) (Primary Dx); Uncontrolled hypertension; Need for influenza vaccination Start: 07-09-2022 Non-patient / Non-visit Dr. Shai Gaston Work Phone: [facility] Start: 07-09-2022 End: 07-09-[address] [facility] Start: 07-05-2022 End: 07-05-2022 Patient encounter procedure [facility] Work Phone: [facility]plant Center Comment on above: Encounter for afterc are following kidney transplant (Primary Dx); Kidney replaced by transplant; Immunosuppressive management encounter following kidney transplant; Essential hypertension; Transaminitis Start: 06-26-2022 Non-patient / Non-visit Dr. Shai Gaston Work Phone: [facility] Start: 06-08-2022 End: 06-08-2022 Patient encounter procedure [facility] Work Phone: Transplant Center Comment on above: Kidney replaced by t ransplant (Primary Dx) Start: 06-07-2022 End: 06-08-[address] Zaida Gaston Work Phone: [facility] Work Phone: Start: 06-07-2022 End: 06-08-[address] [facility] Start: 05-31-2022 End: 05-31-[address] Zaida Gaston Work Phone: [facility] Start: 05-31-2022 Non-patient / Non-visit Dr. Shai Gaston Work Phone: [facility] Start: 05-13-2022 Refill Dale MICHAELS.SENIOR NET SOFTWARE DEVELOPER Work Phone: Endocrinology Comment on above: Refill Request Start: 05-12-2022 Refill Dale GUADALUPEN.SENIOR NET SOFTWARE DEVELOPER Work Phone: Endocrinology Comment on above: Refill Request Start: 05-09-2022 End: 05-09-[address] Zaida Gaston Work Phone: [facility] Work Phone: Start: 05-09-2022 End: 05-09-[address] [facility] Gaston [facility] Start: 04-30-2022 End: 05-09-[address] Zaida Gaston Work Phone: [facility] Work Phone: Start: 04-30-2022 End: 05-09-[address] Zaida Gaston Work Phone: [facility]-Laboratory, Specimen Start: 04-30-[address] William Gaston Work Phone: [facility]-Laboratory, Specimen Start: 04-25-2022 Refill Zaida Ordonez Work Phone: [facility] [place] Comment on above: Refill Request Start: 04-12-[address] William Gaston Work Phone: [facility] Start: 04-10-2022 End: 04-10-2022 Patient encounter procedure Zaida Gaston MD Work Phone: [facility] [place] Comment on above: Amputation of little toe, initial encounter (HCC) (Primary Dx); Necrotizing fasciitis (HCC); Diabetic ulcer of left foot associated with type 2 diabetes mellitus, with muscle involvement without evidence of necrosis, unspecified part of foot (HCC); Osteomyelitis of toe (HCC) Start: 04-09-2022 Telephone encounter Zaida blanton MD Work Phone: [facility] [place] Comment on above: Patient Update; FYI- No Action Needed Start: 04-09-[address] William Gaston Work Phone: [facility]-Laboratory, Specimen Start: 04-05-2022 End: 04-05-[address] Zaida Gaston Work Phone: [facility]-Laboratory, Specimen Start: 04-05-2022 Refill [facility] Comment on above: Rx Refills Start: 04-05-2022 End: 04-08-[address] [facility]aston [facility] Start: 04-05-[address] William Gaston [facility] Start: 04-02-2022 End: 04-07-[address] Zaida Gaston Work Phone: [facility]-Home Health Lab Start: 03-28-2022 Orders Only Alana deluca APRN.SENIOR NET SOFTWARE DEVELOPER Work Phone: Transplant Center Comment on above: Kidney replaced by t ransplant (Primary Dx) Start: 03-28-2022 Non-patient / Non-visit Dr. Shai Gaston Work Phone: [facility] In[facility] Start: 03-27-2022 Telephone encounter Zaida blanton MD Work Phone: [facility] [place] Comment on above: Home Health Orders Start: 03-27-2022 Non-patient / Non-visit Dr. Shai Gaston Work Phone: [facility] In[facility] Phys[facility] Start: 03-26-2022 Non-patient / Non-visit Dr. Shai Gaston Work Phone: [facility] Start: 03-25-2022 Non-patient / Non-visit Dr. Shai Gaston Work Phone: [facility] Start: 03-24-2022 Non-patient / Non-visit Dr. Shai Gaston Work Phone: [facility] Start: 03-24-2022 End: 03-28-2022 Evaluation and management of inpatient Dr. Zaida Gaston Work Phone: [facility]-Intensive Care Unit Start: 03-13-[address] William Gaston Work Phone: [facility] Start: 03-08-2022 End: 03-08-2022 Patient encounter procedure [facility] Work Phone: Transplant Center Comment on above: Kidney replaced by t ransplant (Primary Dx); Encounter for aftercare following kidney transplant; Post-transplant erythrocytosis; Immunosuppressive management encounter following kidney transplant Start: 03-06-2022 End: 03-08-[address] Zaida Gaston Work Phone: [facility] Start: 03-02-2022 Telephone encounter Conner Molina (Pcn a) [facility] Transplant Center Comment on above: Electronic Communica tion Start: 02-14-2022 Refill Juvencio Haji RN [facility] Comment on above: Refill Request; Medi cation Dosage Adjustment (High Envarsus 14.2) Start: 02-06-2022 End: 02-06-[address] Zaida Gaston Work Phone: [facility] Start: 01-19-2022 End: 01-19-[address] Zaida Gaston Work Phone: [facility] Start: 01-08-2022 Refill Solomon ramirez MD Work Phone: Transplant Center Comment on above: Refill Request Start: 01-02-2022 End: 01-06-[address] [facility] Start: 12-26-2021 Chart abstracting Kathy Jurado Research Coordinator [facility] Comment on above: Research (IRB# [id number]) Start: 12-20-2021 Orders Only Kathy Cochran esearch Coordinator [facility] Comment on above: Research subject (Pr imary Dx) Start: 12-20-2021 Patient entered into trial Kathy Jurado Research Coordinator [facility] Start: 12-08-2021 End: 12-08-2021 Patient encounter procedure [facility] Work Phone: [facility] Center Comment on above: S/P kidney transplan t (Primary Dx); Immunosuppressive management encounter following kidney transplant Start: 12-04-2021 End: 12-04-[address] Zaida Gaston Work Phone: [facility]Laboratory Start: 09-20-2021 Non-patient / Non-visit Dr. Shai Gaston Work Phone: [facility] Start: 09-19-2021 Non-patient / Non-visit Dr. Shai Gaston Work Phone: [facility] Start: 09-18-2021 Non-patient / Non-visit Dr. Shai Gaston Work Phone: [facility] Start: 09-17-2021 Non-patient / Non-visit Dr. Shai Gaston Work Phone: [facility] Start: 09-17-2021 End: 09-20-2021 Evaluation and management of inpatient Dr. Zaida Gaston Work Phone: [facility]-Medical Surgical 3 Start: 09-14-2021 End: 09-14-2021 Emergency department patient visit Dr. Zaida Gaston Work Phone: [facility]-Emergency Department Procedures Date Procedure Procedure Detail Performing [...] Start: 04-17-2025 Platelet mean volume determination Dr. Ablerto Gaston MD Work Phone: Start: 04-15-[address] Zaida Gaston MD Work Phone: Start: 04-14-2025 CT of abdomen and pelvis without contrast Dr. Zaida Gaston MD Work Phone: Start: 04-14-2025 Urine microscopy: red cells Dr. Zaida xavier MD Work Phone: Start: 04-14-2025 Urnls dip stick/tablet reagent auto microscopy Dr. Zaida Gaston MD Work Phone: Start: 04-14-2025 Plain chest X-ray Dr. Zaida Gaston MD Work Phone: Start: 04-14-2025 Calculation of international normalized ratio Dr. Zaida aGston MD Work Phone: Start: 04-14-2025 Estimated creatinine [...] Specimen Type: BLOOD SPEC IMEN Ordering Facility: [facility] Address: [address] [place] [address] Performed By: #### T SCR #### [facility] CLIA [id number] [address] [place], [place] [address] [address] [place] Start: 01-27-2025 Estimated [...] dx w/collj spec when pfrmd Nia James GLOBAL COMPENSATION DIRECTOR.SENIOR NET SOFTWARE DEVELOPER Work Phone: Start: 04-01-2024 Esophagogastroduodenoscopy transoral diagnostic iNa James GLOBAL COMPENSATION DIRECTOR.SENIOR NET SOFTWARE DEVELOPER Work Phone: Start: 04-01-2024 End: 04-01-2024 Gluc bld gluc mntr dev cleared fda spec home use Amara Sloan DO Work Phone: Start: 04-01-2024 Colonoscopy Lali Raman MD Work Phone: Start: 01-14-[address] Zaida Jimenez nta Work Phone: Start: 01-13-2024 Creatinine other source Alana Hedervary GLOBAL COMPENSATION DIRECTOR.SENIOR NET SOFTWARE DEVELOPER Work Phone: Start: 01-13-2024 Urnls dip stick/tablet rgnt auto w/o microscopy Alana Hedervary GLOBAL COMPENSATION DIRECTOR.SENIOR NET SOFTWARE DEVELOPER Work Phone: Start: 07-15-2023 Creatinine other source Alana Hedervary GLOBAL COMPENSATION DIRECTOR.SENIOR NET SOFTWARE DEVELOPER Work Phone: Start: 07-15-2023 Urnls dip stick/tablet reagent auto microscopy Alana Hedervary GLOBAL COMPENSATION DIRECTOR.SENIOR NET SOFTWARE DEVELOPER Work Phone: Start: 07-13-2023 INFLUENZA VACCINE, AGE [...] dip stick/tablet rgnt auto w/o microscopy Kely Hopepr MD Work Phone: Start: 08-03-2022 Creatinine other [...] Kidn ey replaced by transplant Alana Kent GLOBAL COMPENSATION DIRECTOR.[facility] Work Phone: History of renal transplant Kidn [...] transplant Kidn ey transplant recipient 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 GLOBAL COMPENSATION DIRECTOR.SENIOR NET SOFTWARE DEVELOPER Work Phone: History of renal transplant Kidn ey transplant recipient Xiang ROCHA-C Work Phone: History of renal transplant Kidn ey replaced by transplant Conchis Sheets RN History of renal transplant Kidn ey replaced by transplant [facility] Work Phone: History of renal transplant Kidn ey transplant recipient Delia Older GLOBAL COMPENSATION DIRECTOR.SENIOR NET SOFTWARE DEVELOPER Work Phone: History of renal transplant Melissa l transplant recipient Dr. Zaida Gaston MD Work Phone: History of renal transplant Melissa l transplant recipient Dr. Zaida Gaston MD Work Phone: History of renal transplant Kidn ey transplant recipient ([facility]LY [facility]) Zaida Gaston MD Work Phone: History of renal transplant Kidn ey transplant recipient Dr. Zaida Gaston MD Work Phone: History of renal transplant Kidn ey transplant recipient Dr. Zaida Gaston MD Work Phone: History of renal transplant Dr. Shruti Jara MD History of renal transplant Kidn ey replaced by transplant ([facility]) Mariza Vences GLOBAL COMPENSATION DIRECTOR.SENIOR NET SOFTWARE DEVELOPER Work Phone: History of renal transplant Kidn ey replaced by transplant (FORM[facility]LY [facility]) Mariza Vences GLOBAL COMPENSATION DIRECTOR.SENIOR NET SOFTWARE DEVELOPER Work Phone: Investigation of tra nsfusion reaction [...] 04-01-2029 Screening for malignant neoplasm of colon [facility] Start: 05-02-2026 Creatinine measurement Serum Creatinine [facility] Start: 04-29-2026 Complete blood count Hemoglobin/Hematocrit [facility] Start: 04-21-2026 Creatinine measurement Serum Creatinine [facility] Start: 02-05-2026 Annual PCP Team Chronic Disease Visit Annual PCP Team Chronic Disease Visit [facility] Start: 02-05-2026 BP Controlled (<130/80) BP Controlled (<130/80) [facility] Start: 01-29-2026 Complete blood count Hemoglobin/Hematocrit [facility] Start: 01-29-2026 Creatinine measurement Serum Creatinine [facility] Start: 01-01-2026 Hepatitis B screening Urine Albumin:Creatinine Ratio [facility] Start: 01-01-2026 Hepatitis B surface antibody level LDL Cholesterol [facility] Start: 12-30-2025 Annual PCP Team Chronic Disease Visit Annual PCP Team Chronic Disease Visit [facility] Start: 12-30-2025 BP Controlled (<130/80) BP Controlled (<130/80) [facility] Start: 09-28-2025 Annual PCP Team Chronic Disease Visit Annual PCP Team Chronic Disease Visit [facility] Start: 09-28-2025 BP Controlled (<130/80) BP Controlled (<130/80) [facility] Start: 08-13-2025 End: 06-13-2026 US Kidney - bilateral and Urinary bladder US KIDNEY/BLADDER Radiology Routine Nephrolithiasis Kidney replaced by transplant (HCC) Expected: 08/13/2025, Expires: 06/13/2026 [facility] Work Phone: Comment on above: Expected: 08/13/2025, Expires: Start: 08-13-2025 End: 06-13-2026 XR Abdomen Supine and Upright XR ABDOMEN 1V SUPINE Radiology Routine Nephrolithiasis Kidney replaced by transplant (HCC) Expected: 08/13/2025, Expires: 06/13/2026 [facility] Comment on above: Expected: 08/13/2025, Expires: Start: 07-19-2025 Hemoglobin A[facility]c [facility]C [facility] Start: 06-18-2025 Annual PCP Team Chronic Disease Visit Annual PCP Team Chronic Disease Visit [facility] Start: 06-07-2025 End: 06-07-2025 Patient encounter procedure 06/07/2025 3:30 PM EDT Office Visit Urology [address] [address] Bren Sutton MD [address] [place] [address] William Cameron MD Urology Comment on above: William Cameron MD Start: 05-24-2025 Urine microalbumin profile [facility] Start: 05-20-2025 End: 05-20-2025 Patient encounter procedure 05/20/2025 1:30 PM EDT Office Visit Transplant Center [address] [place] [id number] Providers, [facility] [address] [place] [id number] follow up in [facility] Comment on above: follow up [facility] Start: 05-18-2025 End: 05-18-2025 Patient encounter procedure 05/18/2025 10:00 AM EDT Office Visit Kidney Medicine [facility] [address] [address] Megan Montejo, GLOBAL COMPENSATION DIRECTOR.SENIOR NET SOFTWARE DEVELOPER [address] [place] [address] Transplant kidney [facility]ney [facility] Comment on above: Transplant kidney Start: 05-14-2025 End: 05-14-2025 Patient encounter procedure 05/14/2025 9:00 AM EDT Office Visit Urology [address] [address] Mariza Vences, GLOBAL COMPENSATION DIRECTOR.SENIOR NET SOFTWARE DEVELOPER [address] [place] [address] Nephrolithiasis Urology Comment on above: Nephrolithiasis Start: 05-10-2025 Influenza vaccination Influenza Vaccine (#1) [facility] Start: 05-05-2025 End: 05-05-2025 Patient encounter procedure 05/05/2025 3:00 PM EDT Office Visit Kidney [facility] [address] [address] Megan Montejo, GLOBAL COMPENSATION DIRECTOR.SENIOR NET SOFTWARE DEVELOPER [address] [place] [address] Transplant kidney Kidney [facility] Comment on above: Transplant kidney Start: 04-26-2025 End: 04-26-2025 Patient encounter procedure 04/26/2025 4:00 PM EDT [facility] [address] [place] [address] [place] [address] [place] [address] Stones consult ok per [facility] Comment on above: Stones consult ok per [facility] Start: 04-22-2025 End: 04-22-2025 Cysto w/ureteroscopy w/lithotripsy LASER CYSTOURETHROSCOPY W/ URETEROSCOPY AND/OR PYELOSCOPY W/ LITHOTRIPSY HOLMIUM Ureterolithiasis 04/22/2025 4:15 PM EDT [facility] Start: 04-22-2025 End: 04-22-2025 Evaluation and management of inpatient 04/22/2025 4:15 PM EDT - 04/22/2025 6:21 PM EDT Surgery Admitting [address] [place] [address] Halina Gates MD [address] [place] [address] LASER CYSTOURETHROSCOPY W/ URETEROSCOPY AND/OR PYELOSCOPY W/ LITHOTRIPSY HOLMIUM; TRANSPLANT URETER Admitting Comment on above: LASER CYSTOURETHROSCOPY W/ URETEROSCOPY AND/OR PYELOSCOPY W/ LITHOTRIPSY HOLMIUM; TRANSPLANT URETER Start: 04-18-2025 Patient discharge [facility] Start: 04-17-2025 Contact precautions [facility] Start: 04-16-2025 [facility] Start: 04-16-2025 End: 04-16-2025 [facility] Start: 04-15-2025 Consultation [facility] Start: 04-15-2025 Catheterization of vein [facility] Start: 04-15-2025 Care regimes management [facility] Start: 04-15-2025 Notification of physician [facility] Start: 04-15-2025 Assessment of risk of venous thromboembolism [facility] Start: 04-15-2025 Insertion of catheter into peripheral vein [facility] Start: 04-15-2025 Measuring intake and output [facility] Start: 04-15-2025 Providing care according to standard [facility] Start: 04-15-2025 Provision of activity privileges [facility] Start: 04-15-2025 Referral to occupational therapist [facility] Start: 04-15-2025 Referral to service [facility] Start: 04-15-2025 End: 04-15-2025 [facility] Start: 04-15-2025 Following clinical pathway protocol [facility] Start: 04-15-2025 Hospital admission, emergency, from emergency room, medical nature [facility] Start: 04-15-2025 Admission procedure [facility] Start: 04-14-2025 [facility] Start: 04-14-2025 [facility] Start: 04-14-2025 End: 04-14-2025 [facility] Start: 04-14-2025 Bacteria Detection (PCR) Bacteria Detection (PCR) [facility] Start: 04-14-2025 Bacteria identified in Blood by Culture Blood Culture [facility] Start: 04-14-2025 Blood culture [facility] Start: 04-14-2025 Urine culture [facility] Start: 04-13-2025 End: 04-13-2025 Patient encounter procedure 04/13/2025 11:20 AM EDT Office Visit Internal Medicine [facility] [address] [facility] [place] [address] Zaida Gaston MD [address] [facility] [place] [address] 2 mo follow up [facility] Comment on above: 2 mo follow up Start: 04-12-2025 End: 04-12-2025 Patient encounter procedure 04/12/2025 10:00 AM EDT [facility] [address] [place] [address] [facility] [address] [place] [id number] DM f/up [facility] Comment on above: DM f/up Start: 04-05-2025 End: 04-05-2025 Patient encounter procedure 04/05/2025 11:20 AM EDT Office Visit Internal Medicine [facility] [address] [facility] [place] [address] Zaida Gaston MD [address] [place] [address] 2 mo follow up [facility] Comment on above: 2 mo follow up Start: 04-04-2025 [facility] Start: 04-04-2025 Bacteria identified in Urine by Culture Urine Culture [facility] Start: 04-04-2025 [facility] Start: 04-02-2025 Hemoglobin A1c measurement HbA1C [facility] Start: 03-24-2025 BP Controlled (<130/80) BP Controlled (<130/80) [facility] Start: 03-18-2025 Annual PCP Team Chronic Disease Visit Annual PCP Team Chronic Disease Visit [facility] Start: 03-18-2025 BP Controlled (<130/80) BP Controlled (<130/80) [facility] Start: 03-10-2025 [facility] Start: 03-08-2025 End: 03-08-2025 Patient encounter procedure 03/08/2025 10:30 AM EDT [facility] [address] [place] [address] [facility] [address] [place] [phone] DM initial [facility] Comment on above: DM initial Start: 02-25-2025 End: 02-25-2025 Admission to same day surgery center 02/25/2025 9:40 AM EDT - 02/25/2025 11:20 AM EDT Surgery Angio [address] [place] [address] BLOOM CONVEYOR OPERATOR [address] [place] [address] PERC EXCHANGE NEPHROSTOMY CATH, INCLUDING DIAGNOSTIC NEPHROSTOGRAM/URETEROGRAM WHEN PERFORMED,IMAGING GUIDANCE AND ALL ASSOCIATED RAD S&I Angio Comment on above: PERC EXCHANGE NEPHROSTOMY CATH, INCLUDIN G DIAGNOSTIC NEPHROSTOGRAM/URETEROGRAM WHEN PERFORMED,IMAGING GUIDANCE AND ALL ASSOCIATED RAD S&I Start: 02-25-2025 Subsequent hospital visit by physician 02/25/2025 9:40 AM EDT Hospital Encounter Angio [address] [place] [address] BLOOM CONVEYOR OPERATOR [address] [place] [address] Hydronephrosis, unspecified hydronephrosis type [N13.30] Angio Comment on above: Hydronephrosis, unspecified hydronephros is type [N13.30] Start: 02-25-2025 End: 02-25-2025 Exchange nephrostomy catheter prq w/img gid rs&i [facility] HB6 Start: 02-15-2025 End: 02-15-2025 Patient encounter procedure 02/15/2025 9:30 AM EDT [facility] [address] [place] [address] Verna eJnsen [facility] [address] [place] [address] Type 1 diabetes mellitus on insulin therapy (HCC) [E10.9] [facility] Comment on above: Type 1 diabetes mellitus on insulin ther apy (HCC) [E10.9] Start: 02-11-2025 End: 02-11-2025 Patient encounter procedure Transplant C enter Comment on above: hosp d/c-per Consult (antegrade s tone management/surgical discussion) Start: 02-07-2025 [facility] Start: 02-05-2025 End: 02-05-2025 Patient encounter procedure 02/05/2025 11:40 AM EDT Office Visit Internal Medicine [facility] [address] [place], [place] [phone] Zaida Gaston MD [address] [place], [place] [phone] [facility] main hosp follow up kidney stones [facility] Comment on above: [facility] main hosp follow up kidney stones Start: 01-26-2025 End: 01-26-2025 [facility] Start: 01-26-2025 Bacteria identified in Urine by Culture Urine Culture [facility] Start: 01-21-2025 Annual PCP Team Chronic Disease Visit Annual PCP Team Chronic Disease Visit [facility] Start: 01-21-2025 BP Controlled (<130/80) BP Controlled (<130/80) [facility] Start: 01-12-2025 BP Controlled (<130/80) BP Controlled (<130/80) [facility] Start: 01-09-2025 Creatinine measurement Serum Creatinine [facility] Start: 01-09-2025 Hepatitis B surface antibody level LDL Cholesterol [facility] Start: 12-29-2024 End: 12-29-2024 Patient encounter procedure 12/29/2024 2:20 PM EDT Office Visit Internal Medicine [facility] [address] [place], [place] [phone] Zaida Gaston MD [address] [place], [place] [phone] 3 mo follow up [facility] Comment on above: 3 mo follow up Start: 12-27-2024 End: 03-28-2025 25-hydroxyvitamin D3 [Mass/volume] in Serum or Plasma VITAMIN D 25 HYDROXY Lab Routine Vitamin D deficiency Expected: 12/27/2024, Expires: 03/28/2025 [facility] Comment on above: Expected: 12/27/2024, Expires: Start: 12-27-2024 End: 03-28-2025 CBC panel - Blood by Automated count COMPLETE BLOOD COUNT Lab Routine Type 1 diabetes mellitus on insulin therapy (HCC) Expected: 12/27/2024, Expires: 03/28/2025 [facility] Work Phone: Comment on above: Expected: 12/27/2024, Expires: Start: 12-27-2024 End: 03-28-2025 Comprehensive metabolic 2000 panel - Serum or Plasma COMPREHENSIVE METABOLIC PANEL Lab Routine Type 1 diabetes mellitus on insulin therapy (HCC) Expected: 12/27/2024, Expires: 03/28/2025 [facility] Comment on above: Expected: 12/27/2024, Expires: Start: 12-27-2024 End: 03-28-2025 Lipid 1996 panel - Serum or Plasma LIPID PANEL BASIC Lab Routine Type 1 diabetes mellitus on insulin therapy (HCC) Expected: 12/27/2024, Expires: 03/28/2025 [facility] Comment on above: Expected: 12/27/2024, Expires: Start: 12-27-2024 End: 03-28-2025 Thyrotropin [Units/volume] in Serum or Plasma THYROID STIMULATING HORMONE Lab Routine Type 1 diabetes mellitus on insulin therapy (HCC) Expected: 12/27/2024, Expires: 03/28/2025 [facility] Comment on above: Expected: 12/27/2024, Expires: Start: 12-17-2024 Hemoglobin A1c measurement HbA1C [facility] Start: 11-25-2024 Annual PCP Team Chronic Disease Visit Annual PCP Team Chronic Disease Visit [facility] Start: 11-25-2024 Complete blood count Hemoglobin/Hematocrit [facility] Start: 11-25-2024 Creatinine measurement Serum Creatinine [facility] Start: 11-25-2024 Hepatitis B surface antibody level LDL Cholesterol [facility] Start: 11-19-2024 End: 11-19-2024 [facility] Start: 11-19-2024 Bacteria identified in Urine by Culture Urine Culture [facility] Start: 10-03-2024 Glaucoma screening Dilated Retinal Exam [facility] Start: 09-21-2024 End: 09-21-2024 Patient encounter procedure 09/21/2024 11:40 AM EST Office Visit Internal Medicine [facility] [address] [place] [address] Zaida Gaston MD [address] [place] [address] 3 month follow up [facility] Comment on above: 3 month follow up Start: 09-18-2024 Annual PCP Team Chronic Disease Visit Annual PCP Team Chronic Disease Visit [facility] Start: 09-18-2024 BP Controlled (<130/80) BP Controlled (<130/80) [facility] Start: 09-18-2024 Covid-19 Vaccine ( season) Covid-19 Vaccine ( season) [facility] Comment on above: Postponed from 05/10/2023 (Declined at t his time) Start: 09-18-2024 Hepatitis A Vaccine (1 of 2 - Risk 2-dose series) Hepatitis A Vaccine (1 of 2 - Risk 2-dose series) [facility] Comment on above: Postponed from 12/08/1987 (Declined at t his time) Start: 09-18-2024 Pneumococcal vaccination Pneumococcal Vaccine (3 of 3 - PPSV23 or PCV20) [facility] Comment on above: Postponed from 09/01/2021 (Declined at t his time) Start: 09-18-2024 Shingrix Vaccine (1 of 2) Shingrix Vaccine (1 of 2) [facility] Comment on above: Postponed from 12/08/1987 (Declined at t his time) Start: 09-11-2024 End: 12-11-2024 Microalbumin/Creatinine [Mass Ratio] in Urine ALBUMIN/CREATININE RATIO, URINE Lab Routine Type 1 diabetes mellitus on insulin therapy (HCC) Expected: 09/11/2024 (Approximate), Expires: 12/11/2024 [facility] Work Phone: Comment on above: Expected: 09/11/2024 (Approximate), Expi res: 12/11/2024 Start: 09-09-2024 Medicare Advantage Annual Wellness Visit Medicare [facility] Annual Wellness Visit [facility] Start: 09-07-2024 Creatinine measurement Serum Creatinine [facility] Start: 09-07-2024 Hepatitis B screening Urine Albumin:Creatinine Ratio [facility] Start: 09-07-2024 Hepatitis B surface antibody level LDL Cholesterol [facility] Start: 09-07-2024 End: 09-07-2024 Patient encounter procedure 09/07/2024 2:00 PM EST Office Visit Transplant Center [address] [address] Providers, [facility] [address] [phone] Follow up in [facility] 6 months [facility] Comment on above: Follow up in [facility] in 6 months Start: 08-21-2024 Diabetic foot examination Diabetic Foot Exam [facility] ic Start: 08-13-2024 BP Controlled (<130/80) BP Controlled (<130/80) [facility] Start: 07-19-2024 Complete blood count Hemoglobin/Hematocrit [facility] Start: 07-19-2024 Creatinine measurement Serum Creatinine [facility] Start: 07-19-2024 Hemoglobin/Hematocrit Hemoglobin/Hematocrit [facility] Start: 07-19-2024 Hepatitis B screening Urine Albumin:Creatinine Ratio [facility] Start: 07-19-2024 Serum Creatinine Serum Creatinine [facility] Start: 07-16-2024 End: 07-16-2024 Patient encounter procedure 07/16/2024 1:40 PM EST Office Visit Transplant Center [address] [address] Providers, [facility] [address] [phone] Follow up in [facility] in 6 months Transplant Center Comment on above: Follow up in [facility] in 6 months Start: 07-15-2024 BP Controlled (<130/80) BP Controlled (<130/80) [facility] Start: 07-15-2024 Hemoglobin/Hematocrit Hemoglobin/Hematocrit [facility] Start: 07-15-2024 Hepatitis B surface antibody level LDL Cholesterol [facility] Start: 07-15-2024 Serum Creatinine Serum Creatinine [facility] Start: 06-18-2024 End: 06-18-2024 Patient encounter procedure 06/18/2024 11:40 AM EDT Office Visit Internal Medicine [facility] [address] [place] [address] Zaida Gaston MD [address] [place] [address] 3 month follow up [facility] Comment on above: 3 month follow up Start: 05-21-2024 Annual PCP Team Chronic Disease Visit Annual PCP Team Chronic Disease Visit [facility] Start: 05-10-2024 Covid-19 Vaccine ( season) Covid-19 Vaccine ( season) [facility] Start: 05-10-2024 Covid-19 Vaccine () Covid-19 Vaccine () [facility] Start: 05-10-2024 Influenza vaccination Influenza Vaccine (#1) [facility] Start: 03-24-2024 End: 03-24-2024 Patient encounter procedure General Surg jo-ann Comment on above: Colon Consult, last colon 12/04/2018, arthur swift hx of colon ca, 5 year repeat bjs Start: 03-18-2024 End: 03-18-2024 Patient encounter procedure 03/18/2024 5:40 PM EDT Office Visit Internal Medicine [facility] [address] [place] [address] 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 APRN.SENIOR NET SOFTWARE DEVELOPER [address] [place] [address] 6 wk f/u [facility] Comment on above: 6 wk f/u Start: 03-18-2024 HEMOGLOBIN/HEMATOCRIT HEMOGLOBIN/HEMATOCRIT [facility] Start: 03-18-2024 Hepatitis B screening URINE ALBUMIN:CREATININE RATIO [facility] Start: 03-18-2024 SERUM CREATININE SERUM CREATININE [facility] Start: 03-05-2024 HEMOGLOBIN/HEMATOCRIT HEMOGLOBIN/HEMATOCRIT [facility] Start: 03-05-2024 SERUM CREATININE SERUM CREATININE [facility] Start: 02-28-2024 End: 02-28-2024 Patient encounter procedure 02/28/2024 11:30 AM EDT Office Visit General Surgery [address] [place] [address] Karl Kaufman MD [address] [id number] Colon Consult, last colon 12/04/2018, family hx of colon ca, 5 year repeat bjs General Surgery Comment on above: Colon Consult, last colon 12/04/2018, fam jeniffer hx of colon ca, 5 year repeat bjs Start: 02-26-2024 ANNUAL PCP TEAM CHRONIC DISEASE VISIT ANNUAL PCP TEAM CHRONIC DISEASE VISIT [facility] Start: 02-26-2024 Hemoglobin A1c measurement HbA1C [facility] Start: 02-04-2024 End: 02-04-2024 Patient encounter procedure 02/04/2024 12:00 PM EDT Office Visit General Surgery [address] [place], [place] [id number] Karl Kaufman MD [address] [phone] 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]; [...] EDT Office Visit Internal Medicine [facility] [address] [place], [place] [phone] 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 APRN.SENIOR NET SOFTWARE DEVELOPER [address] [place], [place] [phone] 3 month follow up Internal Medicine [facility] Comment on above: 3 month follow up Start: 01-03-2024 HEMOGLOBIN/HEMATOCRIT HEMOGLOBIN/HEMATOCRIT [facility] Start: 01-03-2024 SERUM CREATININE SERUM CREATININE [facility] Start: 12-29-2023 HEMOGLOBIN/HEMATOCRIT HEMOGLOBIN/HEMATOCRIT [facility] Start: 12-29-2023 Hepatitis B surface antibody level LDL CHOLESTEROL [facility] Start: 12-29-2023 SERUM CREATININE SERUM CREATININE [facility] Start: 12-08-2023 Prostate specific antigen measurement Prostate Cancer Screening Discussion [facility] Start: 12-05-2023 Colonoscopy COLONOSCOPY [facility] Start: 12-05-2023 COLORECTAL CANCER SCREENING COLORECTAL CANCER SCREENING [facility] Start: 12-05-2023 Screening for malignant neoplasm of colon [facility] Start: 11-26-2023 End: 02-25-2024 Hemoglobin A1c in Blood [facility] Work Phone: Comment on above: Expected: 11/26/2023, Expires: 4 Start: 11-26-2023 End: 02-25-2024 Thyrotropin [Units/volume] in Serum or Plasma [facility] Work Phone: Comment on above: Expected: 11/26/2023, Expires: 4 Start: 11-24-2023 ANNUAL PCP TEAM CHRONIC DISEASE VISIT ANNUAL PCP TEAM CHRONIC DISEASE VISIT [facility] Start: 11-24-2023 BP CONTROLLED (<130/80) BP CONTROLLED (<130/80) [facility] Start: 10-25-2023 [facility]c [facility] Start: 10-13-2023 HEMOGLOBIN/HEMATOCRIT HEMOGLOBIN/HEMATOCRIT [facility] Start: 10-13-2023 Hepatitis B surface antibody level LDL CHOLESTEROL [facility] Start: 10-13-2023 SERUM CREATININE SERUM CREATININE [facility] Start: 10-04-2023 BP CONTROLLED (<130/80) BP CONTROLLED (<130/80) [facility] Start: 09-15-2023 HEMOGLOBIN/HEMATOCRIT HEMOGLOBIN/HEMATOCRIT [facility] Start: 09-15-2023 Hepatitis B screening URINE ALBUMIN:CREATININE RATIO [facility] Start: 09-15-2023 SERUM CREATININE SERUM CREATININE [facility] Start: 08-25-2023 ANNUAL PCP TEAM CHRONIC DISEASE VISIT ANNUAL PCP TEAM CHRONIC DISEASE VISIT [facility] Start: 08-04-2023 HEMOGLOBIN/HEMATOCRIT HEMOGLOBIN/HEMATOCRIT [facility] Start: 08-04-2023 SERUM CREATININE SERUM CREATININE [facility] Start: 08-03-2023 BP CONTROLLED (<130/80) BP CONTROLLED (<130/80) [facility] Start: 07-21-2023 End: 10-20-2023 CBC W Auto Differential panel - Blood CBC + DIFF Lab STAT Kidney replaced by transplant Expected: 07/21/2023 (Approximate), Expires: 10/20/2023 [facility] Work Phone: Comment on above: Expected: 07/21/2023 (Approximate), Expi res: 10/20/2023 Start: 07-21-2023 End: 10-20-2023 Comprehensive metabolic 2000 panel - Serum or Plasma COMP METABOLIC PANEL Lab STAT Kidney replaced by transplant Expected: 07/21/2023 (Approximate), Expires: 10/20/2023 [facility] Work Phone: Comment on above: Expected: 07/21/2023 (Approximate), Expi res: 10/20/2023 Start: 07-15-2023 End: 10-14-2023 ALLOSURE KIDNEY [facility] Work Phone: Comment on above: Expected: 07/15/2023, Expires: 4 Start: 07-15-2023 End: 07-14-2024 KID/URIAS REC POST TX DSA [facility] Work Phone: Comment on above: Expected: 07/15/2023, Expires: 4 Start: 07-13-2023 ANNUAL PCP TEAM CHRONIC DISEASE VISIT ANNUAL PCP TEAM CHRONIC DISEASE VISIT [facility] Start: 07-05-2023 BP CONTROLLED (<130/80) BP CONTROLLED (<130/80) [facility] Start: 07-02-2023 HEMOGLOBIN/HEMATOCRIT HEMOGLOBIN/HEMATOCRIT [facility] Start: 07-02-2023 SERUM CREATININE SERUM CREATININE [facility] Start: 06-08-2023 HEMOGLOBIN/HEMATOCRIT HEMOGLOBIN/HEMATOCRIT [facility] Start: 06-08-2023 SERUM CREATININE SERUM CREATININE [facility] Start: 05-10-2023 Covid-19 Vaccine ( season) Covid-19 Vaccine () [facility] Start: 05-10-2023 Influenza vaccination [facility] Start: 04-10-2023 ANNUAL PCP TEAM CHRONIC DISEASE VISIT ANNUAL PCP TEAM CHRONIC DISEASE VISIT [facility] Start: 04-10-2023 BP CONTROLLED (<130/80) BP CONTROLLED (<130/80) [facility] Start: 03-18-2023 End: 05-18-2023 ALLOSURE KIDNEY ALLOSURE KIDNEY Lab Routine Encounter for aftercare following kidney transplant Expected: 03/18/2023, Expires: 05/18/2023 [facility] Work Phone: Comment on above: Expected: 03/18/2023, Expires: 3 Start: 03-18-2023 End: 03-13-2024 KID/URIAS REC POST TX DSA KID/URIAS REC POST TX DSA ALLOGEN Routine Encounter for aftercare following kidney transplant Expected: 03/18/2023, Expires: 03/13/2024 [facility] Work Phone: Comment on above: Expected: 03/18/2023, Expires: 4 Start: 03-14-2023 [facility] Start: 03-03-2023 HEMOGLOBIN/HEMATOCRIT HEMOGLOBIN/HEMATOCRIT [facility] Start: 03-03-2023 Hepatitis B surface antibody level LDL CHOLESTEROL [facility] Start: 03-03-2023 SERUM CREATININE SERUM CREATININE [facility] Start: 02-13-2023 HEMOGLOBIN/HEMATOCRIT HEMOGLOBIN/HEMATOCRIT [facility] Start: 02-13-2023 Hepatitis B surface antibody level LDL CHOLESTEROL [facility] Start: 02-13-2023 SERUM CREATININE SERUM CREATININE [facility] Start: 02-09-2023 Glaucoma screening Dilated Retinal Exam [facility] Start: 02-09-2023 Hepatitis C antibody, confirmatory test DILATED RETINAL EXAM [facility] Start: 01-12-2023 HEMOGLOBIN/HEMATOCRIT HEMOGLOBIN/HEMATOCRIT [facility] Start: 01-12-2023 Hepatitis B surface antibody level LDL CHOLESTEROL [facility] Start: 01-12-2023 SERUM CREATININE SERUM CREATININE [facility] Start: 01-10-2023 Hemoglobin A1c measurement HbA1C [facility] Start: 01-10-2023 Hemoglobin A1c/Hemoglobin.total in Blood HBA1C [facility] Start: 01-02-2023 End: 03-04-2023 Basic metabolic 2000 panel - Serum or Plasma BASIC METABOLIC PNL Lab STAT Kidney replaced by transplant Expected: 01/02/2023 (Approximate), Expires: 03/04/2023 [facility] Work Phone: Comment on above: Expected: 01/02/2023 (Approximate), Expi res: 03/04/2023 Start: 01-02-2023 End: 03-04-2023 Tacrolimus [Mass/volume] in Blood TACROLIMUS/FK-506 BL Lab STAT Kidney replaced by transplant Expected: 01/02/2023 (Approximate), Expires: 03/04/2023 [facility] Work Phone: Comment on above: Expected: 01/02/2023 (Approximate), Expi res: 03/04/2023 Start: 12-31-2022 End: 03-02-2023 ALLOSURE KIDNEY ALLOSURE KIDNEY Lab Routine Kidney replaced by transplant Expected: 12/31/2022, Expires: 03/02/2023 [facility] Work Phone: Comment on above: Expected: 12/31/2022, Expires: 3 Start: 12-31-2022 End: 12-31-2023 KID/URIAS REC POST TX DSA KID/URIAS REC POST TX DSA ALLOGEN Routine Kidney replaced by transplant Expected: 12/31/2022, Expires: 12/31/2023 [facility] Work Phone: Comment on above: Expected: 12/31/2022, Expires: 4 Start: 12-31-2022 End: 03-02-2023 Protein/Creatinine [Mass Ratio] in Urine PROTEIN CREATININE RATIO Lab Routine Kidney replaced by transplant Expected: 12/31/2022, Expires: 03/02/2023 [facility] Work Phone: Comment on above: Expected: 12/31/2022, Expires: 3 Start: 12-25-2022 HEMOGLOBIN/HEMATOCRIT HEMOGLOBIN/HEMATOCRIT [facility] Start: 12-25-2022 Hepatitis B surface antibody level LDL CHOLESTEROL [facility] Start: 12-25-2022 SERUM CREATININE SERUM CREATININE [facility] Start: 11-24-2022 HEMOGLOBIN/HEMATOCRIT HEMOGLOBIN/HEMATOCRIT [facility] Start: 11-24-2022 SERUM CREATININE SERUM CREATININE [facility] Start: 11-17-2022 Hepatitis B surface antibody level LDL CHOLESTEROL [facility] Start: 11-05-2022 Patient discharge [facility] Start: 11-02-2022 Wound care [facility] Start: 11-01-2022 [facility] Start: 11-01-2022 Application of intermittent pneumatic compression device [facility] Start: 11-01-2022 Following clinical pathway protocol [facility] Start: 11-01-2022 Assessment of risk of venous thromboembolism [facility] Start: 11-01-2022 Care regimes management [facility] Start: 11-01-2022 Consultation [facility] Start: 11-01-2022 Consultation for treatment [facility] Start: 11-01-2022 Insertion of catheter into peripheral vein [facility] Start: 11-01-2022 Providing care according to standard [facility] Start: 11-01-2022 Referral to service [facility] Start: 11-01-2022 [facility] Start: 11-01-2022 Admission procedure [facility] Start: 11-01-2022 Amputation of toe Amputation Toe/Foot (Left) [facility] Start: 11-01-2022 Verification routine [facility] Start: 11-01-2022 Admission procedure [facility] Start: 11-01-2022 Fluoroscopic guidance O.R. Fluoro for C-Arm [facility] Start: 11-01-2022 Radiography of foot Foot 2 Views [facility] Start: 11-01-2022 Electrocardiographic procedure [facility] Start: 11-01-2022 End: 11-01-2022 Blood culture [facility] Start: 11-01-2022 End: 11-02-2022 [facility] Start: 10-13-2022 ANNUAL PCP TEAM CHRONIC DISEASE VISIT ANNUAL PCP TEAM CHRONIC DISEASE VISIT [facility] Start: 10-13-2022 End: 12-13-2022 Hemoglobin A1c in Blood HGB A1C Lab Routine Type 1 diabetes mellitus on insulin therapy (HCC) Expected: 10/13/2022, Expires: 12/13/2022 [facility] Work Phone: Comment on above: Expected: 10/13/2022, Expires: Start: 10-13-2022 Hemoglobin A1c/Hemoglobin.total in Blood HBA1C [facility] Start: 08-25-2022 End: 10-25-2022 ALBUMIN/CREAT RATIO RND UR ALBUMIN/CREAT RATIO RND UR Lab Routine Diabetic polyneuropathy associated with type 2 diabetes mellitus (HCC) Expected: 08/25/2022, Expires: 10/25/2022 [facility] Work Phone: Comment on above: Expected: 08/25/2022, Expires: Start: 07-11-2022 Hepatitis B screening URINE ALBUMIN:CREATININE RATIO [facility] Start: 07-07-2022 3 comp foot exam completed DIABETIC FOOT [facility]AM [facility] Start: 07-07-2022 Diabetic foot examination Diabetic Foot Exam [facility] Start: 07-07-2022 PNEUMOCOCCAL (3 - PPSV23 if available, else PCV20) PNEUMOCOCCAL (3 - PPSV23 if available, else PCV20) [facility] Start: 07-07-2022 PNEUMOCOCCAL (3 - PPSV23 or PCV20) PNEUMOCOCCAL (3 - PPSV23 or PCV20) [facility] Start: 07-07-2022 Pneumococcal vaccination Pneumococcal Vaccine (3 - PPSV23 or PCV20) [facility] Start: 05-10-2022 Influenza vaccination INFLUENZA (#1) [facility] Start: 04-03-2022 Blood chemistry [facility] Work Phone: Start: 04-02-2022 Blood chemistry [facility] Work Phone: Start: 04-01-2022 Blood chemistry [facility] Work Phone: Start: 03-31-2022 Blood chemistry [facility] Work Phone: Start: 03-30-2022 Blood chemistry [facility] Work Phone: Start: 03-29-2022 Blood chemistry [facility] Work Phone: Start: 03-28-2022 Patient discharge [facility] Work Phone: Start: 03-27-2022 Referral to service [facility] Work Phone: Start: 03-26-2022 Blood culture [facility] Work Phone: Start: 03-26-2022 Vacuum assisted skin closure [facility] Work Phone: Start: 03-25-2022 [facility] Work Phone: Start: 03-24-2022 Referral to occupational therapist [facility] Work Phone: Start: 03-24-2022 Referral to service [facility] Work Phone: Start: 03-24-2022 Provision of activity privileges [facility] Work Phone: Start: 03-24-2022 [facility] Work Phone: Start: 03-24-2022 Care planning and problem solving actions [facility] Work Phone: Start: 03-24-2022 Following clinical pathway protocol [facility] Work Phone: Start: 03-24-2022 Assessment of risk of venous thromboembolism [facility] Work Phone: Start: 03-24-2022 Care regimes management [facility] Work Phone: Start: 03-24-2022 Consultation [facility] Work Phone: Start: 03-24-2022 Consultation for treatment [facility] Work Phone: Start: 03-24-2022 Documentation procedure [facility] Work Phone: Start: 03-24-2022 Fall prevention [facility] Work Phone: Start: 03-24-2022 Incentive spirometry [facility] Work Phone: Start: 03-24-2022 Insertion of catheter into peripheral vein [facility] Work Phone: Start: 03-24-2022 Introduction of urinary catheter [facility] Work Phone: Start: 03-24-2022 Measuring intake and output [facility] Work Phone: Start: 03-24-2022 Patient referral to dietitian [facility] Work Phone: Start: 03-24-2022 Providing care according to standard [facility] Work Phone: Start: 03-24-2022 Provision of activity privileges [facility] Work Phone: Start: 03-24-2022 Referral to spinner cap frame [facility] Work Phone: Start: 03-24-2022 Referral to fish housekeeper [facility] Work Phone: Start: 03-24-2022 Referral to service [facility] Work Phone: Start: 03-24-2022 Skin care [facility] Work Phone: Start: 03-24-2022 Vital signs measurements [facility] Work Phone: Start: 03-24-2022 [facility] Work Phone: Start: 03-24-2022 Verification routine [facility] Work Phone: Start: 03-24-2022 Admission procedure [facility] Work Phone: Start: 03-24-2022 Bacterial nucleic acid assay [facility] Work Phone: Start: 03-24-2022 End: 03-24-2022 [facility] Work Phone: Start: 03-24-2022 End: 03-24-2022 Blood culture [facility] Work Phone: Start: 03-24-2022 Patient referral to dietitian [facility] Work Phone: Start: 03-08-2022 End: 05-08-2022 Hemoglobin A1c in Blood HGB A1C Lab Routine Kidney replaced by transplant Expected: 03/08/2022, Expires: 05/08/2022 [facility] Work Phone: Comment on above: Expected: 03/08/2022, Expires: 2 Start: 12-20-2021 End: 02-19-2022 CLINICAL TRIAL DRAW CLINICAL TRIAL DRAW Lab Routine Research subject Expected: 12/20/2021, Expires: 02/19/2022 [facility] Work Phone: Comment on above: Expected: 12/20/2021, Expires: 2 Start: 10-20-2021 Hepatitis C antibody, confirmatory test DILATED RETINAL EXAM [facility] Start: 10-11-2021 Hemoglobin A1c/Hemoglobin.total in Blood HBA1C [facility] Start: 09-14-2021 Emergency department visit high/urgent severity EMERGENCY DEPT VISIT [facility] Work Phone: Start: 09-14-2021 Iv infusion hydration each additional hour HYDRATE IV INFUSION ADD-ON [facility] Work Phone: Start: 09-14-2021 Iv infusion hydration initial 31 min-1 hour HYDRATION IV INFUSION INIT [facility] Work Phone: Start: 09-01-2021 Pneumococcal vaccination Pneumococcal Vaccine (3 of 3 - PPSV23 or PCV20) [facility] Start: 09-01-2021 Pneumococcal Vaccine: 50+ (3 of 3 - PCV20 or PCV21) Pneumococcal Vaccine: 50+ (3 of 3 - PCV20 or PCV21) [facility] Start: 09-01-2021 Pneumococcal Vaccine: 50+ (3 of 3 - PPSV23, PCV20 or PCV21) Pneumococcal Vaccine: 50+ (3 of 3 - PPSV23, PCV20 or PCV21) [facility] Start: 03-22-2021 COVID-19 VACCINE (4 - Booster) COVID-19 VACCINE (4 - Booster) [facility] Start: 03-15-2021 COVID-19 VACCINE (4 - Booster) COVID-19 VACCINE (4 - Booster) [facility] Start: 02-15-2021 COVID-19 VACCINE (4 - Booster for Moderna series) COVID-19 VACCINE (4 - Booster for Moderna series) [facility] Start: 02-15-2021 COVID-19 VACCINE (4 - Booster) COVID-19 VACCINE (4 - Booster) [facility] Start: 02-15-2021 Covid-19 Vaccine (4 - Moderna risk series) Covid-19 Vaccine (4 - Moderna risk series) [facility] Start: 01-18-2021 Covid-19 Vaccine (3 - Moderna risk series) Covid-19 Vaccine (3 - Moderna risk series) [facility] Start: 2018 SHINGRIX VACCINE (1 of 2) SHINGRIX VACCINE (1 of 2) [facility] Start: 11-07-2017 TWO PNEUMOVAX 5 YEARS APART PRIOR TO AGE 65 (#2) TWO PNEUMOVAX 5 YEARS APART PRIOR TO AGE 65 (#2) [facility] Start: 2013 COLOGUARD (FIT-DNA) COLOGUARD (FIT-DNA) [facility] Start: [address] COLONOGRAPHY [facility] Start: 2013 FECAL OCCULT BLOOD FECAL OCCULT BLOOD [facility] Start: 2013 Prostate specific antigen measurement Prostate Cancer Screening Discussion [facility] Start: 2013 Screening for malignant neoplasm of colon [facility] Start: 2013 SIGMOIDOSCOPY SIGMOIDOSCOPY [facility] Start: 12-08-1987 HEPATITIS A (1 of 2 - Risk 2-dose series) HEPATITIS A (1 of 2 - Risk 2-dose series) [facility] Start: 12-08-1987 Hepatitis A Vaccine (1 of 2 - Risk 2-dose series) Hepatitis A Vaccine (1 of 2 - Risk 2-dose series) [facility] Start: 12-08-1987 SHINGRIX VACCINE (1 of 2) SHINGRIX VACCINE (1 of 2) [facility] Start: 1986 Anxiety Screening Anxiety Screening [facility] Start: 1986 BP CONTROLLED (<130/80) BP CONTROLLED (<130/80) [facility] Start: 1969 HEPATITIS A (1 of 2 - Risk 2-dose series) HEPATITIS A (1 of 2 - Risk 2-dose series) [facility] End: 07-13-2024 25-hydroxyvitamin D3 [Mass/volume] in Serum or Plasma VITAMIN D 25 HYDROXY Lab Routine Kidney replaced by transplant Vitamin D deficiency Every 3 months for 100 Occurrences starting 07/15/2023 until 07/13/2024, 1 completed [facility] Work Phone: Comment on above: Every 3 months for 100 Occurrences start ing 07/15/2023 until 07/13/2024, 1 completed End: 07-25-2024 25-hydroxyvitamin D3 [Mass/volume] in Serum or Plasma VITAMIN D 25 HYDROXY Lab Routine Kidney replaced by transplant High risk medication use Vitamin D deficiency Every 3 months for 50 Occurrences starting 07/25/2023 until 07/25/2024 [facility] Work Phone: Comment on above: Every 3 months for 50 Occurrences starti ng 07/25/2023 until 07/25/2024 Acid fast bacilli culture [facility] Work Phone: Acid fast bacilli culture [facility] End: 03-13-2024 ALBUMIN/CREAT RATIO RND UR ALBUMIN/CREAT RATIO RND UR Lab Routine Encounter for aftercare following kidney transplant Once per week for 4 Occurrences starting 03/14/2023 until 03/13/2024 [facility] Work Phone: Comment on above: Once per week for 4 Occurrences starting 03/14/2023 until 03/13/2024 Anaerobic microbial culture Anaerobic [facility] Work Phone: Anaerobic microbial culture Anaerobic [facility] Bacteria identified in Blood by Culture Blood Culture [facility] Bacteria identified in Blood by Culture Blood Culture [facility] Bacteria identified in Urine by Culture URINE CULTURE Microbiology Routine Kidney replaced by transplant Ordered: 12/31/2022 [facility] Work Phone: Comment on above: Ordered: 12/31/2022 Bacterial nucleic acid assay [facility] Work Phone: Bilirubin measurement, urine [facility] End: 06-08-2023 BK VIRUS PCR,QUANT,P BK VIRUS PCR,QUANT,P Lab Routine Kidney replaced by transplant Once per month for 100 Occurrences starting 06/08/2022 until 06/08/2023, 2 completed [facility] Work Phone: Comment on above: Once per month for 100 Occurrences start ing 06/08/2022 until 06/08/2023, 2 completed End: 07-15-2024 BK VIRUS PCR,QUANT,P BK VIRUS PCR,QUANT,P Lab Routine Kidney replaced by transplant Every 3 months for 100 Occurrences starting 07/15/2023 until 07/15/2024, 2 completed [facility] Work Phone: Comment on above: Every 3 months for 100 Occurrences start ing 07/15/2023 until 07/15/2024, 2 completed End: 07-25-2024 BK VIRUS PCR,QUANT,P BK VIRUS PCR,QUANT,P Lab Routine Kidney replaced by transplant High risk medication use Every 3 months for 50 Occurrences starting 07/25/2023 until 07/25/2024 [facility] Work Phone: Comment on above: Every 3 months for 50 Occurrences starti ng 07/25/2023 until 07/25/2024 Blood culture [facility] Work Phone: C reactive protein [Mass/volume] in Serum or Plasma [facility] Work Phone: End: 06-08-2023 CBC W Auto Differential panel - Blood CBC + DIFF Lab Routine Kidney replaced by transplant Once per month for 100 Occurrences starting 06/08/2022 until 06/08/2023, 1 completed [facility] Work Phone: Comment on above: Once per month for 100 Occurrences start ing 06/08/2022 until 06/08/2023, 1 completed End: 03-13-2024 CBC W Auto Differential panel - Blood CBC + DIFF Lab Routine Encounter for aftercare following kidney transplant Once per week for 4 Occurrences starting 03/14/2023 until 03/13/2024 [facility] Work Phone: Comment on above: Once per week for 4 Occurrences starting 03/14/2023 until 03/13/2024 End: 07-15-2024 CBC W Auto Differential panel - Blood CBC + DIFF Lab Routine Kidney replaced by transplant Once per month for 100 Occurrences starting 07/15/2023 until 07/15/2024 [facility] Work Phone: Comment on above: Once per month for 100 Occurrences start ing 07/15/2023 until 07/15/2024 End: 07-25-2024 CBC W Auto Differential panel - Blood CBC + DIFF Lab Routine Kidney replaced by transplant High risk medication use Once per month for 99 Occurrences starting 07/25/2023 until 07/25/2024 [facility] Work Phone: Comment on above: Once per month for 99 Occurrences starti ng 07/25/2023 until 07/25/2024 Clostridioides diffi cile toxin genes [Presence] in Stool by CARMEN with probe detection C. DIFFICILE PCR Lab Routine Diarrhea, unspecified type Ordered: 11/26/2023 [facility] Work Phone: Comment on above: Ordered: 11/26/2023 End: 06-08-2023 CMV DNA DETECTION AND QUANT CMV DNA DETECTION AND QUANT Lab Routine Kidney replaced by transplant Once per month for 100 Occurrences starting 06/08/2022 until 06/08/2023, 1 completed [facility] Work Phone: Comment on above: Once per month for 100 Occurrences start ing 06/08/2022 until 06/08/2023, 1 completed End: 06-08-2023 Comprehensive metabolic 2000 panel - Serum or Plasma COMP METABOLIC PANEL Lab Routine Kidney replaced by transplant Once per month for 100 Occurrences starting 06/08/2022 until 06/08/2023, 1 completed [facility] Work Phone: Comment on above: Once per month for 100 Occurrences start ing 06/08/2022 until 06/08/2023, 1 completed End: 03-13-2024 Comprehensive metabolic 2000 panel - Serum or Plasma COMP METABOLIC PANEL Lab Routine Encounter for aftercare following kidney transplant Once per week for 4 Occurrences starting 03/14/2023 until 03/13/2024 [facility] Work Phone: Comment on above: Once per week for 4 Occurrences starting 03/14/2023 until 03/13/2024 End: 07-15-2024 Comprehensive metabolic 2000 panel - Serum or Plasma COMP METABOLIC PANEL Lab Routine Kidney replaced by transplant Once per month for 100 Occurrences starting 07/15/2023 until 07/15/2024 [facility] Work Phone: Comment on above: Once per month for 100 Occurrences start ing 07/15/2023 until 07/15/2024 End: 07-25-2024 Comprehensive metabolic 2000 panel - Serum or Plasma COMP METABOLIC PANEL Lab Routine Kidney replaced by transplant High risk medication use Once per month for 99 Occurrences starting 07/25/2023 until 07/25/2024 [facility] Work Phone: Comment on above: Once per month for 99 Occurrences starti ng 07/25/2023 until 07/25/2024 End: 03-24-2025 EGD DIAGNOSTIC EGD DIAGNOSTIC Endoscopy Routine Diarrhea, unspecified type 1 Occurrences starting 03/24/2024 until 03/24/2025 [facility] Work Phone: Comment on above: 1 Occurrences starting 03/24/2024 until 03/24/2025 ENTERIC BACTERIAL PA KATHERIN BY PCR ENTERIC BACTERIAL PANEL BY PCR Lab Routine Diarrhea, unspecified type Ordered: 11/26/2023 [facility] Work Phone: Comment on above: Ordered: 11/26/2023 Erythrocyte sediment ation rate [facility] Work Phone: FECAL LACTOFERRIN/LEUKOCYTES FEC AL LACTOFERRIN/LEUKOCYTES Lab Routine Diarrhea, unspecified type Ordered: 11/26/2023 [facility] Work Phone: Comment on above: Ordered: 11/26/2023 End: 03-24-2025 Flexible sigmoidoscopy study COLONOSCOPY DIAGNOSTIC Endoscopy Routine Diarrhea, unspecified type 1 Occurrences starting 03/24/2024 until 03/24/2025 [facility] Comment on above: 1 Occurrences starting 03/24/2024 until 03/24/2025 Fungal Culture Fungal Culture [facility] Work Phone: Fungal Smear Fungal Smear [facility] Work Phone: Giardia lamblia+Cryptosporidium sp Ag [Presence] in Stool by Immunoassay CRYPTOSPORIDIUM AND GIARDIA ANTIGENS BY EIA Microbiology Routine Diarrhea, unspecified type Ordered: 11/26/2023 [facility] Work Phone: Comment on above: Ordered: 11/26/2023 Hemoglobin [Presence ] in Urine [facility] INFLUENZA VACCINE QUADRIVALENT 6 MO - 64 YRS IM INFLUENZA VACCINE QUADRIVALENT 6 MO - 64 YRS IM Immunization/Injection Routine Need for influenza vaccination Ordered: 07/13/2022 [facility] Work Phone: Comment on above: Ordered: 07/13/2022 End: 07-30-2024 KID/URIAS REC POST TX DSA KID/URIAS REC POST TX DSA ALLOGEN Routine Kidney replaced by transplant Every 3 months for 4 Occurrences starting 07/31/2023 until 07/30/2024 [facility] Work Phone: Comment on above: Every 3 months for 4 Occurrences startin g 07/31/2023 until 07/30/2024 End: 09-24-2023 Lipid 1996 panel - Serum or Plasma LIPID PANEL BASIC Lab Routine Kidney replaced by transplant Every 6 months for 2 Occurrences starting 09/24/2022 until 09/24/2023 [facility] Work Phone: Comment on above: Every 6 months for 2 Occurrences startin g 09/24/2022 until 09/24/2023 End: 07-25-2024 Lipid 1996 panel - Serum or Plasma LIPID PANEL BASIC Lab Routine Kidney replaced by transplant High risk medication use Every 3 months for 50 Occurrences starting 07/25/2023 until 07/25/2024 [facility] Work Phone: Comment on above: Every 3 months for 50 Occurrences starti ng 07/25/2023 until 07/25/2024 Magnesium [Mass/volu me] in Serum or Plasma [facility] Work Phone: End: 06-08-2023 Magnesium [Mass/volume] in Serum or Plasma MAGNESIUM BLD Lab Routine Kidney replaced by transplant Once per month for 100 Occurrences starting 06/08/2022 until 06/08/2023, 1 completed [facility] Work Phone: Comment on above: Once per month for 100 Occurrences start ing 06/08/2022 until 06/08/2023, 1 completed End: 03-13-2024 Magnesium [Mass/volume] in Serum or Plasma MAGNESIUM BLD Lab Routine Encounter for aftercare following kidney transplant Once per week for 4 Occurrences starting 03/14/2023 until 03/13/2024 [facility] Work Phone: Comment on above: Once per week for 4 Occurrences starting 03/14/2023 until 03/13/2024 End: 07-15-2024 Magnesium [Mass/volume] in Serum or Plasma MAGNESIUM BLD Lab Routine Kidney replaced by transplant Once per month for 100 Occurrences starting 07/15/2023 until 07/15/2024 [facility] Work Phone: Comment on above: Once per month for 100 Occurrences start ing 07/15/2023 until 07/15/2024 End: 07-25-2024 Magnesium [Mass/volume] in Serum or Plasma MAGNESIUM BLD Lab Routine Kidney replaced by transplant High risk medication use Once per month for 99 Occurrences starting 07/25/2023 until 07/25/2024 [facility] Work Phone: Comment on above: Once per month for 99 Occurrences starti ng 07/25/2023 until 07/25/2024 Measurement of keton es in urine using dipstick [facility] Microorganism identi fied in Unspecified specimen by Culture [facility] Microscopic observat ion [Identifier] in Unspecified specimen by Gram stain Gram Stain [facility] Work Phone: Microscopic urinalysis [facility] Mycobacterium sp belkys ntified in Unspecified specimen by Organism specific culture [facility] Work Phone: Mycobacterium sp belkys ntified in Unspecified specimen by Organism specific culture [facility] End: 07-25-2024 Parathyrin.intact [Mass/volume] in Serum or Plasma PTH INTACT BLD Lab Routine Kidney replaced by transplant High risk medication use Vitamin D deficiency Every 3 months for 50 Occurrences starting 07/25/2023 until 07/25/2024 [facility] Work Phone: Comment on above: Every 3 months for 50 Occurrences starti ng 07/25/2023 until 07/25/2024 Patient Education [facility] Work Phone: Patient referral [facility] Work Phone: pH of Urine [facility] End: 06-08-2023 Phosphate [Mass/volume] in Serum or Plasma PHOSPHORUS INORGANIC Lab Routine Kidney replaced by transplant Once per month for 100 Occurrences starting 06/08/2022 until 06/08/2023, 1 completed [facility] Work Phone: Comment on above: Once per month for 100 Occurrences start ing 06/08/2022 until 06/08/2023, 1 completed End: 03-13-2024 Phosphate [Mass/volume] in Serum or Plasma PHOSPHORUS INORGANIC Lab Routine Encounter for aftercare following kidney transplant Once per week for 4 Occurrences starting 03/14/2023 until 03/13/2024 [facility] Work Phone: Comment on above: Once per week for 4 Occurrences starting 03/14/2023 until 03/13/2024 End: 07-15-2024 Phosphate [Mass/volume] in Serum or Plasma PHOSPHORUS INORGANIC Lab Routine Kidney replaced by transplant Once per month for 100 Occurrences starting 07/15/2023 until 07/15/2024 [facility] Work Phone: Comment on above: Once per month for 100 Occurrences start ing 07/15/2023 until 07/15/2024 End: 07-25-2024 Phosphate [Mass/volume] in Serum or Plasma PHOSPHORUS INORGANIC Lab Routine Kidney replaced by transplant High risk medication use Once per month for 99 Occurrences starting 07/25/2023 until 07/25/2024 [facility] Work Phone: Comment on above: Once per month for 99 Occurrences starti ng 07/25/2023 until 07/25/2024 Protein/Creatinine [ Mass Ratio] in Urine [facility] Work Phone: Protein/Creatinine [ Mass Ratio] in Urine PROTEIN CREATININE RATIO Lab Routine Kidney replaced by transplant 03/08/2022 4:08 PM EDT [facility] Work Phone: End: 02-26-2024 PVR LEG W/EXC ROLY VAS LAB PVR LEG W/EXC ROLY [facility] LAB Vascular Lab Routine Left leg claudication (HCC) 1 Occurrences starting 02/25/2023 until 02/26/2024 [facility] Work Phone: Comment on above: 1 Occurrences starting 02/25/2023 until 02/26/2024 Specific gravity of Urine [facility] SURGICAL PATHOLOGY [facility] Work Phone: Comment on above: Release Upon Ordering for 1 Occurrences starting 04/01/2024, 1 completed Tacrolimus [Mass/vol ume] in Blood [facility] Work Phone: End: 06-08-2023 Tacrolimus [Mass/volume] in Blood TACROLIMUS/FK-506 BL Lab Routine Kidney replaced by transplant Once per month for 100 Occurrences starting 06/08/2022 until 06/08/2023, 1 completed [facility] Work Phone: Comment on above: Once per month for 100 Occurrences start ing 06/08/2022 until 06/08/2023, 1 completed End: 03-13-2024 Tacrolimus [Mass/volume] in Blood TACROLIMUS/FK-506 BL Lab Routine Encounter for aftercare following kidney transplant Once per week for 4 Occurrences starting 03/14/2023 until 03/13/2024 [facility] Work Phone: Comment on above: Once per week for 4 Occurrences starting 03/14/2023 until 03/13/2024 End: 07-15-2024 Tacrolimus [Mass/volume] in Blood TACROLIMUS/FK-506 BL Lab Routine Kidney replaced by transplant Once per month for 100 Occurrences starting 07/15/2023 until 07/15/2024 [facility] Work Phone: Comment on above: Once per month for 100 Occurrences start ing 07/15/2023 until 07/15/2024 End: 07-25-2024 Tacrolimus [Mass/volume] in Blood TACROLIMUS/FK-506 BL Lab Routine Kidney replaced by transplant High risk medication use Once per month for 99 Occurrences starting 07/25/2023 until 07/25/2024 [facility] Work Phone: Comment on above: Once per month for 99 Occurrences starti ng 07/25/2023 until 07/25/2024 UA DIP, URINE (POC) UA DIP, URIN E (POC) Lab Routine Screening for genitourinary condition 1 Occurrences starting 05/05/2025 [facility] Work Phone: Comment on above: 1 Occurrences starting 05/05/2025 End: 03-13-2024 Urinalysis complete panel - Urine URINALYSIS WITH MICROSCOPIC, REFLEX CULTURE Lab Routine Encounter for aftercare following kidney transplant Once per week for 4 Occurrences starting 03/14/2023 until 03/13/2024 [facility] Work Phone: Comment on above: Once per week for 4 Occurrences starting 03/14/2023 until 03/13/2024 Urinalysis, blood, qualitative [facility] Urine culture [facility] Urine culture [facility] Urine culture [facility] Urine dipstick for glucose [facility] Urine dipstick for l eukocyte esterase [facility] Urine dipstick for nitrite [facility] Urine dipstick for protein [facility] Urine examination [facility] Urine microscopy: ep ithelial cells [facility] Urine Microscopy: wh ite cells [facility] Urobilinogen [Presen ce] in Urine [facility] End: 02-26-2024 US LEG VEIN DVT UNL VAS LAB US LEG VEIN DVT [facility]L [facility] LAB Vascular Lab Routine Pain of right lower extremity 1 Occurrences starting 02/25/2023 until 02/26/2024 [facility] Work Phone: Comment on above: 1 Occurrences starting 02/25/2023 until 02/26/2024 Wound Culture Wound Culture [facility] Work Phone: [facility] Immunizations Immunization Date Immunization Notes Care Provider Priyanka Begum-10-2024 influenza, seasonal, injectable Amanda RUIZ Work Phone: [facility] 06-18-2024 influenza virus vaccine, unspecified formulation 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 GLOBAL COMPENSATION DIRECTOR.SENIOR NET SOFTWARE DEVELOPER Work Phone: [facility] 07-13-2023 influenza, injectabl e, quadrivalent, contains preservative Immunization Tali Work Phone: [facility] 07-13-2023 influenza virus vaccine, unspecified formulation 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 GLOBAL COMPENSATION DIRECTOR.SENIOR NET SOFTWARE DEVELOPER Work Phone: [facility] 07-07-2021 influenza, injectabl e, quadrivalent, contains preservative [facility] Work Phone: [facility] Work Phone: 07-07-2021 pneumococcal conjuga te vaccine, 13 valent [facility] Work Phone: [facility] Work Phone: 07-07-2021 influenza virus vaccine, unspecified formulation Xiang Perez PA-C Work Phone: [facility] 06-23-[address] Zaida Gaston Work Phone: [facility] 12-29-2020 Covid (Moderna) Dr. Zaida xavier Work Phone: [facility] 12-08-2020 Covid (Moderna) Dr. Zaida xavier Work Phone: [facility] 12-06-2020 tuberculin skin test ; purified protein derivative solution, intradermal Zaida Gaston MD Work Phone: [facility] 11-24-2020 COVID-19 vaccine, fu ll dose (MODERNA) [facility] Work Phone: [facility] Work Phone: 06-09-2020 influenza virus vaccine, unspecified formulation [facility] Work Phone: [facility] Work Phone: 05-23-2020 influenza, seasonal, injectable [facility] Work Phone: [facility] Work Phone: 06-28-[address] Zaida Gaston Work Phone: [facility] 06-28-2019 influenza, seasonal, injectable, preservative free [facility] Work Phone: [facility] Work Phone: 03-16-2019 hepatitis B vaccine, adult dosage [facility] Work Phone: [facility] Work Phone: 11-17-2018 hepatitis B vaccine, adult dosage [facility] Work Phone: [facility] Work Phone: 10-21-2018 hepatitis B vaccine, adult dosage [facility] Work Phone: [facility] Work Phone: 09-22-2018 hepatitis B vaccine, adult dosage [facility] Work Phone: [facility] Work Phone: 06-24-2018 influenza, injectabl e, quadrivalent, preservative free Dr. Zaida Gaston Work Phone: [facility] 06-24-2018 influenza, seasonal, injectable Dr. Zaida Gaston Work Phone: [facility] 06-24-2018 influenza, seasonal, injectable, preservative free [facility] Work Phone: [facility] Work Phone: 05-19-2018 influenza, injectabl e, quadrivalent, contains preservative [facility] Work Phone: [facility] 07-23-[address] Zaida Gaston Work Phone: [facility] 07-23-2017 influenza, injectabl e, quadrivalent, contains preservative [facility] Work Phone: [facility] Work Phone: 07-23-2017 influenza, seasonal, injectable, preservative free [facility] Work Phone: [facility] Work Phone: 06-12-2016 influenza, injectabl e, quadrivalent, contains preservative [facility] Work Phone: [facility] Work Phone: 05-24-2015 tetanus toxoid, reduced diphtheria toxoid, and acellular pertussis vaccine, adsorbed [facility] Work Phone: [facility] Work Phone: 11-07-2012 pneumococcal polysaccharide vaccine, 23 valent [facility] Work Phone: [facility] Work Phone: NEGATED: Highlighted row has not occurred!07-13-2022 influenza, injectable, quadrivalent, contains preservative Zaida Gaston MD Work Phone: [facility] Work Phone: Comment on above: Deferred: OTHER - ve rified by Monik Chinchilla Payers Date Payer Category Payer Medicare (Managed Care) [facility] PPO SNP [id number] 2024 Unknown [id number] 2023 Self-pay [id number] 2023 Unknown [id number] 2022 Unknown [employer] MDCR ADV [employer] MCR ADV TRANSPLANT [id number] 2022-Present [phone] [address] [address] [place] [address] PPO [id number] 2021 Medicaid [id number] 2021 Medicare [id number] 2021 Unknown [id number] 2019 Medicare [id number] 2015 Medicare [id number] Unknown [id number] 462 Unknown [id number]. 462 Unknown [id number]. 462 Unknown [id number]. 462 Unknown [id number]. 462 Unknown [id number]. 462 Unknown [id number]. 462 Unknown [id number]. 462 Unknown [id number]. 462 Unknown [id number]. 462 Unknown [id number]. 462 Unknown [id number]. 462 Unknown [id number]. 462 Unknown [id number]. 462 Unknown [id number] 462 Unknown [id number] 462 Social History Date Type Detail Facility Start: 09-30-2014 End: 08-13-2023 Tobacco smoking status NHIS Never smoked tobacco [facility] Start: 09-30-2014 End: 07-13-2022 Tobacco use and exposure User of smokeless tobacco [facility] History of tobacco use Snuff User [facility] Start: 12-08-2021 End: 05-14-2025 Alcohol intake Ex-drinker (finding) [facility] Start: 08-14-2020 End: 07-04-2022 History SDOH Alcohol Frequency 1 [facility] Start: 08-14-2020 History SDOH Alcohol Std Drinks 98 [facility] Start: 08-14-2020 End: 07-04-2022 History SDOH Social Connections Phone 2 [facility] Start: 08-14-2020 History SDOH Social Connections Living 8 [facility] Start: 08-14-2020 History SDOH Physical Activity DPW 0 [facility] Start: 08-14-2020 End: 08-25-2022 History SDOH Financial 3 [facility] Start: 08-14-2020 Education 12 [facility] Start: 09-30-2014 End: 07-13-2022 Tobacco Comment snuff x 33 years [facility] Start: 1970 Sex Assigned At Male [facility] Start: 11-14-2021 End: 08-03-2022 Exposure to SARS-CoV-2 (event) Not sure [facility] Start: 09-18-2021 End: 11-11-2023 Tobacco smoking status NHIS Unknown if ever smoked [facility] Start: 10-06-2019 None [facility] Start: 10-06-2019 Spouse/ Significant Other;With Family [facility] Start: 10-07-2019 Chew [facility] Start: 12-22-2021 End: 01-01-2022 Exposure to SARS-CoV-2 (event) Unable to assess [facility] Start: 08-24-2022 End: 01-17-2023 History of Social function [facility] Start: 08-24-2022 End: 01-17-2023 Social connection and isolation panel [facility] Start: 08-10-2012 In a typical week, how many times do you talk on the telephone with family, friends, or neighbors? Patient refused [facility] Are you now , , , , never or living with a partner? Refused [facility] Do you feel stress - tense, restless, nervous, or anxious, or unable to sleep at night because your mind is troubled all the time - these days [OSQ] Not at all [facility] (I/We) worried anil er (my/our) food would run out before (I/we) got money to buy more. DK or Refused [facility] Start: 08-14-2020 Gender identity Identifies as male gender (finding) [facility] Start: 08-14-2020 Sexual orientation Heterosexual (finding) [facility] Start: 08-13-2023 Tobacco use and exposure Former smokeless tobacco user [facility] Start: 08-13-2023 Tobacco Comment snuff x 33 yearsQuit in 2020 [facility] Do you belong to any clubs or organizations such as mormon groups, unions, fraternal or athletic groups, or school groups? No [facility] Are you now , , , , never or living with a partner? Living with partner [facility] How often to you hav e a drink containing alcohol? Monthly or less [facility] How many standard dr inks containing alcohol do you have on a typical day? 1 or 2 [facility] How often do you hav e 6 or more drinks on 1 occasion? Never [facility] Do you feel stress - tense, restless, nervous, or anxious, or unable to sleep at night because your mind is troubled all the time - these days [OSQ] To some extent [facility] Start: 07-22-2024 Sexual orientation Choose not to disclose [facility] Start: 11-19-2024 Sex Male (finding) [facility] At any time in the p ast 12 months, were you homeless or living in nursing home [including now]? Yes [facility] Medical Equipment Procedure Code Equipment Code [...] catheter, hemodialysis FDA Start: 08-27-2018 Stent Inlay [place] 4.7fr Taper [place] Green Polymer Phreecoat 14cm Ureteral - [id number] Start: 03-09-2021 [id number], [id number], [id number], [id number], [id number] Start: 04-26-2021 End: 07-28-2024 Comment on above: [...] Start: 08-08-2018 Stent 8fr Pigtail Curve Thin Bridge Maintenance Worker Percuflex Metal 22cm Ureteral Large - [id number] Start: 04-22-2025 Stent Inlay [place] 4.7fr Taper [place] Green Polymer Phreecoat 14cm Ureteral - [id number] Start: 05-14-2025 Goals Date Patient Goal [...] Assessment Result Facility 04-17-2025 Functional status Chair [facility] Work Phone: 01-29-2025 Are you deaf, or do you have serious difficulty hearing No 01/29/2025 3:51 PM Deep Rico RN No [facility] 01-29-2025 Are you blind, or do you have serious difficulty seeing, even when wearing glasses Yes 01/29/2025 3:51 PM Deep Rico RN Yes [facility] 01-29-2025 Do you have serious difficulty walking or climbing stairs Yes 01/29/2025 3:51 PM Deep Rico, RN Yes [facility] 01-29-2025 Do you have difficul ty dressing or bathing No 01/29/2025 3:51 PM Deep Rico, RN No [facility] 01-29-2025 Because of a physica l, mental, or emotional condition, do you have difficulty doing errands alone such as visiting a physician's office or shopping Yes 01/29/2025 3:51 PM Deep Rico RN Yes [facility] 11-05-2022 Functional status Ambulates [facility] Work Phone: 03-28-2022 Functional status Ambulates;Bath room Privilege [facility] Work Phone: 09-20-2021 Functional status Dangle Feet [facility] Work Phone: 03-12-2021 Are you deaf, or do you have serious difficulty hearing No 03/12/2021 9:19 AM Yareli Hester, ANDER No [facility] 03-12-2021 Are you blind, or do you have serious difficulty seeing, even when wearing glasses No 03/12/2021 9:19 AM Yareli Hester RN No [facility] 03-12-2021 Do you have serious difficulty walking or climbing stairs No 03/12/2021 9:19 AM Yareli Hester RN No [facility] 03-12-2021 Do you have difficul ty dressing or bathing No 03/12/2021 9:19 AM Yareli Hester RN No [facility] 03-12-2021 Because of a physica l, mental, or emotional condition, do you have difficulty doing errands alone such as visiting a physician's office or shopping No 03/12/2021 9:19 AM Yareli Hester RN No [facility] Mental Status Date Assessment Result Facility 04-17-2025 Cognitive function Voice/Name [facility] Work Phone: 04-14-2025 Cognitive function Level Of Cons ciousness Follows Commands;Lethargic [facility] Work Phone: 04-04-2025 Cognitive function Voice/Name [facility] Work Phone: 01-29-2025 Because of a physica l, mental, or emotional condition, do you have serious difficulty concentrating, remembering, or making decisions No 01/29/2025 3:51 PM Deep Rico, RN No [facility] 01-26-2025 Cognitive function Awake;Alert;A ppropriate;Fol lows Commands [facility] Work Phone: 11-19-2024 Cognitive function Voice/Name [facility] Work Phone: 03-13-2023 Cognitive function Level Of Cons ciousness Awake;Alert;Follows Commands [facility] Work Phone: 11-04-2022 Cognitive function Voice/Name [facility] Work Phone: 08-28-2022 Cognitive function Level Of Cons ciousness Awake;Alert;Appropriate;Fol lows Commands [facility] Work Phone: 03-28-2022 Cognitive function Voice/Name [facility] Work Phone: 09-20-2021 Cognitive function Voice/Name [facility] Work Phone: 09-14-2021 Cognitive function Level Of Cons ciousness Awake;Alert;Appropriate;Fol lows Commands [facility] Work Phone: 03-12-2021 Because of a physica l, mental, or emotional condition, do you have serious difficulty concentrating, remembering, or making decisions No 03/12/2021 9:19 AM EDT Yareli Sevilla RN No [facility] Clinical Notes 11-26-2017 to 05-14-2025 Patient InstructionsGenoveva Begum MA - 05/14/2025 9:32 AM EDMariza Wilder APRN.[facility] - 05/14/2025 9:06 AM EDTTelephone Encounter - [...] your doctor prescribed. documented in this encounter [facility] 05-14-2025 History of Presen t illness Narrative Patient here for trial voiding. Bladder filled with 180 cc's of Sterile Water. Catheter removed. Patient was able to void. Mariza Worrell notified. Catheter: Not reinserted..\ Voided 150 cc's Genoveva Begum MA Assessment/Plan: N20.0 Nephrolithiasis (primary encounter diagnosis) Z94.0 Kidney replaced by transplant (HCC) -Reviewed CTA imaging: atrophic curyung kidney. Nos tones or hydro Transplant kidney: [...] fluids count but water is the best. Hand Intake- Recommend increasing dietary citrate intake. Adding [...] Making Level: 4 - Moderate Mariza Vences APRN.SENIOR NET SOFTWARE DEVELOPER ========= Chief complaint: Kidney stones Italo Burgos [...] Date Acute diastolic (congestive) heart failure ([facility]) Bronchitis Chronic kidney failure, stage 4 (severe) ([facility]) 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 ([facility]) 12/16/2018 Depression Detached retina DM type 2, goal HbA1c < 7% ([facility]) Erectile dysfunction, unspecified erectile dysfunction type ESRD (end stage renal disease) ([facility]) GERD (gastroesophageal reflux disease) Hyperlipidemia Kidney replaced by transplant ([facility]) Kidney stones LUANNE (obstructive sleep apnea) PNA [...] & STENT 1999 EGD 12/04/2018 EGD W/O [facility] SPEC VARICIES INJ 04/01/2024 [...] 3 mg/actuation nasal spray (BAQSIMI) Use 1 [place] in the nose as needed for low [...] volume of [address]: 04/24/2025 Kidneys: -[place] kidneys: Mildly atrophic. No calculus, hydronephrosis or [...] Currently Types: Marijuana documented in this encounter [facility] 05-13-2025 Telephone encounter Note Transitional Care Management (TCM) [facility] Provider Action / FYI: NA SUMMARY: Outreach type: INITIAL OUTREACH Discharge Network Status: In-Network Discharge Source of Patient: [facility] TCM Discharge Report Patient discharged from [facility] on 05/02/25. Admitted for Pyelonephritis. Contact made with patient: No - next outreach attempt will be on next business day. Jon Jacobsen May 13, 2025 2:13 PM [facility] 05-13-2025 Miscellaneous Notes Transitional Care Management (TCM) [facility] Provider Action / FYI: NA SUMMARY: Outreach type: INITIAL OUTREACH Discharge Network Status: In-Network Discharge Source of Patient: [facility] TCM Discharge Report Patient discharged from [facility] on 05/02/25. Admitted for Pyelonephritis. Contact made with patient: No - next outreach attempt will be on next business day. Jon Jacobsen May 13, 2025 2:13 PM documented in this encounter [facility] 05-04-2025 Telephone encounter Note Transitional Care Management (TCM) [facility] Provider Action / FYI: NA SUMMARY: Outreach type: INITIAL OUTREACH Discharge Network Status: In-Network Discharge Source of Patient: [facility] TCM Discharge Report Patient discharged from [facility] on 05/02/25. Admitted for Pyelonephritis. Contact made with patient: No - next outreach attempt will be on next business day. Jon Jacobsen May 04, 2025 1:11 PM [facility] 05-04-2025 Miscellaneous Notes Transitional Care Management (TCM) [facility] Provider Action / FYI: NA SUMMARY: Outreach type: INITIAL OUTREACH Discharge Network Status: In-Network Discharge Source of Patient: [facility] TCM Discharge Report Patient discharged from [facility] on 05/02/25. Admitted for Pyelonephritis. Contact made with patient: No - next outreach attempt will be on next . Jon Jacobsen May 04, 2025 1:11 PM documented in this encounter [facility] 04-21-2025 Telephone encounter Note Patient returned call to office to discuss surgical consult. Offered May [address] Wesley, however, patient is unable to go to . He stays in [place] and and [facility] would be tough to get to for a consult. He is intersted in [place] or [facility]. Advised that we do have a surgeon at [facility]. Will consult with him about surgical consult openings. Kindra Martinez RN April 21, 2025 3:44 PM [facility] 04-21-2025 Miscellaneous Notes Patient returned call to office to discuss surgical consult. Offered May [address] Wesley, however, patient is unable to go to . He stays in [facility] and [facility] would be tough to get to for a consult. He is intersted in [place] or [facility]. Advised that we do have a surgeon at [facility]. Will consult with him about surgical [...] base about this patient currently admitted at [facility] with UTI. - Hx of kidney transplant [...] so much! Rosalina documented in this encounter [facility] 04-21-2025 Telephone encounter Note Called patient [...] base about this patient currently admitted at [facility] with UTI. - Hx of kidney transplant [...] stone while inpatient? Thanks so much! Rosalina [facility] 04-19-2025 Note [facility] Medical Records Department [address] [place] [address] Discharge Summary 04/19/25 1703 MR#: [id number] Acct: [id number] Name: ITALO BURGOS Rep #: [id number] : 1970 54 From: Shruti Jara MD PCP: Dr. Zaida Gaston MD Status:DIS IN Location: [facility] [id number] Providers Date of Admission: 04/15/25 Date of [...] to restart vancomycin * Transfer pending to [facility]. * TTE ordered as well as repeat blood cultures. * Urology consult not placed as urology has stated that patient should be transferred to [facility]. He has been accepted at [facility] pending bed availability. * Hydrate gently [...] DNR CCA no intubation Disposition: Transferred to [facility] pending bed availability. Medications at Discharge [...] right kidney transplant and follows up with [facility]. He said he also had a history of kidney stones and had been scheduled to follow-up at [facility] where he usually goes for the right [...] with percutaneous nephrosto (more content not included)... [facility] 04-18-2025 Consult note Note Date/Time April 17, 2025 11:27pm [facility] Medical Records Department [address] [place] [address] Pharmacokinetic/Renal -Consult 04/17/252325 MR#: [id number] Acct: [id number] Name: ITALO BURGOS Rep #:[id number] : 1970 54 From: Aj Fields od PCP: Dr. Zaida Gaston MD Status:ADM I N Y Location: [place] [address] Consult Antibiotic Management Pharmacy has been consulted [...] Signature (if applicable): Date CC: ~ Signed [facility] Work Phone: 1(150) 697-786708-09-2025 Progress note Author Shruti [facility] Note Date/Time April 17, 2025 4:2 3pm [facility] Medical Records Department [address] [place] [address] Progress Note 04/17/25 1134 MR#: [id number] Acct: [id number] Name: ITALO BURGOS Rep #:[id number] : 1970 54 From: Shruti Jara MD PCP: Dr. Zaida Gaston MD Status:ADM I N Location: [place] [address] Subjective Subjective Patient seen and examined with [...] % (Auto) 69.5, Lymph % (Auto) 20.3, [place] % (Auto) 7.9, Eos % (Auto) 1.5, [...] to restart vancomycin * Transfer pending to [facility]. * TTE ordered as well as repeat blood cultures. * Urology consult not placed as urology has stated that patient should be transferred to [facility]. He has been accepted at [facility] pending bed availability. * Hydrate gently [...] DNR CCA no intubation Disposition: Transferred to [facility] pending bed availability. 04/17/25 1623 <Electronically signed by Shruti Jara MD> Shruti Jara MD Cosigner Signature (if applicable): CC: ~ Signed [facility] Work Phone: 1(807) 627-475508-08-2025 Progress note Author [facility] Note Date/Time April 16, 2025 6:2 4pm [facility] Medical Records Department [address] [place] [address] Progress Note 04/16/25 1426 MR#: [id number] Acct: [id number] Name: ITALO BURGOS Rep #:[id number] : 1970 54 From: Shruti Jara MD PCP: Dr. Zaida Gaston MD Status:ADM I N Location: [place] [address] Subjective Subjective Patient seen and examined. He is feeling much better today. I saw him with hisnurse by his bedside. He had no active complaints. Review of systems otherwisenegative. He is still awaiting transfer to [facility] pending bed availability. Objective Data Objective [...] 83.9 H, Lymph % (Auto) 7.9 L, [place] % (Auto) 7.4, Eos % (Auto) 0.2, [...] (Auto) 70.5 H, Lymph % (Auto) 19.2, [place] % (Auto) 9.5, Eos % (Auto) 0.4, [...] to restart vancomycin * Transfer pending to [facility]. * TTE ordered as well as repeat blood cultures. * Urology consult not placed as urology has stated that patient should be transferred to [facility]. He has been accepted at [facility] pending bed availability. * Hydrate gently [...] DNR CCA no intubation Disposition: Transferred to [facility] pending bed availability. Charges/Coding Visit Charges Inpatient E&M: 67723 Subs Hosp L2 04/16/25 1824 <Electronically signed by Shruti Jara MD> Shruti Jara MD Cosigner Signature (if applicable): CC: ~ Signed [facility] Work Phone: 1(168) 105-765208-08-2025 Consult note Author Satish Nava [facility] Note Date/Time April 16, 2025 10: 26am [facility] Medical Records Department [address] [place] [address] Consultation - Infectious Dx 04/16/25 1019 MR#: [id number] Acct: [id number] Name: ITALO BURGOS Rep #:[id number] : 1970 54 From: Satish cochran MD PCP: Dr. Zaida Gaston MD Status:ADM I N Location: [place] [address] Assessment & Plan Assessment/Plan (1) Kidney transplant [...] performed and neg except as noted above. 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 Zaida Gaston MD~ Signed [facility] Work Phone: 1(349) 217-494608-07-2025 Consult note Author Santiago Umana [facility] Note Date/Time April 15, 2025 5:5 1pm [facility] Medical Records Department [address] [place] [address] Pharmacokinetic/Renal -Consult 04/15/25 1435 MR#: [id number] Acct: [id number] Name: ITALO BURGOS Rep #:[id number] : 1970 54 From: Santiago Umana PCP: Dr. Zaida Gaston MD Status:ADM I N Y Location: [place] [address] Consult Antibiotic Management Pharmacy has been consulted [...] Date Shruti Jara MD CC: ~ Signed [facility] Work Phone: 1(157) 460-746808-07-2025 History and physical note Author Shruti [facility] Note Date/Time April 15, 2025 5:3 4pm [facility] Medical Records Department [address] [place] [address] H&P Exam - Hospitalist 04/15/25 0944 MR#: [id number] Acct: [id number] Name: ITALO BURGOS Rep #:[id number] : 1970 54 From: Shruti Jara MD PCP: Dr. Zaida Gaston MD Status:ADM I N Location: [place] [address] HPI - General General Date of Admission: [...] right kidney transplant and follows up with [facility]. He said he also had a history of kidney stones and had been scheduled to follow-up at [facility] where he usually goes for the right [...] stated the patient should be transferred to [facility] as he could not do an intervention here in light of him being a kidney transplant patient. Patient was accepted at [facility]. However after staying overnight in the ED and now getting a bed at [facility], decision was made to admit patient to us to [facility] pending transfer. Patient is understanding of the [...] is currently homeless and lives in a nursing home. 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 Reading Location: [id number] Abdomen/Pelvis CT 04/14/25 20:49 IMPRESSION: Status post right hemipelvic renal transplant with percutaneous nephrostomy in good position.. Persistent mid ureteral 9 mm stone causing hydronephrosis. Superimposed kidney infection is possible. Possible cystitis. Reading Location: [place] [address] Assessment & Plan Assessment/Plan (1) Hydronephrosis with [...] to [facility]. He has been accepted at [facility] pending bed availability. * Hydrate gently [...] else otherwise done for him. * Total bnzf-oa-[id number] time 16 minutes. * Disposition: Transferred to [facility] pending bed availability. Charges/Coding Visit Charges Inpatient E&M: 97464 Init Hosp L3 Procedures Hospitalists Procedures: 85211 Advncd Care Plan 30 Min 04/15/25 0671 <Electronically signed by Shruti Jara MD> Cosigner Signature (if applicable): CC: Dr. Zaida Gaston MD; Dr. Shruti Jara MD~ Signed [facility] Work Phone: 1(442) 137-547208-07-2025 Evaluation note* Diagnosis Onset Date Resolution Status Admit Date Hydronephrosis with urinary obstruction due to ureteral calculus acute April 15, 2025 10:06am [facility] Work Phone: 1(822) 599-773808-07-2025 Evaluation note* Diagnosis Onset Date Resolution Status Admit Date Acute pyelonephritis due to bacteria acute April 15, 2025 10:06am Hydronephrosis with urinary obstruction due to ureteral calculus acute April 15, 2025 10:06am Kidney transplant recipient acute April 15, 2025 10:06am Staphylococcus aureus bacteremia acu te April 15, 2025 10:06am Acute on chronic renal insufficiency chronic April 15, 2025 10:06am [facility] Work Phone: 1(635) 851-485208-06-2025 Radiology Diagnostic study note [facility] Imaging Services [address] [place] [address] Abdomen/Pelvis without Cont MR#: [id number] Acct: [id number] Name: ITALO BURGOS Rep #: [id number] : 1970 M 54 From: Tasneem Linn MD PCP: Dr. Zaida Gaston MD Status: REG E R Study:Abdomen/Pelvis without Cont Date of Exa m: 04/14/25 Exam# [id number] Ordering Dr: Daylin Santiago MD PROCEDURE: ABDOMEN/PELVIS [...] cholecystectomy. Unremarkable liver, pancreas, spleen, adrenal glands. [place] kidneys are mildly atrophic. There is a [...] infection is possible. Possible cystitis. Reading Location: [place] [address] CC: Dr. Zaida Gaston MD; Dr. Chuy Santiago MD ~ Aircraft Sales Representative: Signed [facility]08-06-2025 Radiology Diagnostic study note [facility] Imaging Services [address] [place], [place] [address] Chest 1 View (Portable) MR#: [id number] Acct: [id number] Name: ITALO BURGOS Rep #: [id number] : 1970 M 54 From: Gallito Jack MD PCP: Dr. Zaida Gaston MD Status: REG E R Study:Chest 1 View (Portable) Date of Exam: 04/14/25 Exam# [id number] Ordering Dr: Daylin Santiago MD PROCEDURE: CHEST 1 VIEW (PORTABLE) 04/14/2025 REASON FOR EXAM: NONPRODUCTIVE COUGH, FEVER, RALES RIGHT BASE TECHNIQUE: Frontal view of the chest. COMPARISON: 01/2025. FINDINGS: The heart is normal in size. The lungs are clear. No consolidation. No acute osseous abnormalities. RAD/Chest 1 View (Portable) IMPRESSION: No Acute Findings. Reading Location: [facility] CC: Dr. Zaida Gaston MD; Dr. Chuy Santiago MD ~ Aircraft Sales Representative: Signed [facility]08-04-2025 Telephone encounter Note* Telephone Encounter - Verna Jensen RPh - 04/12/2025 10:19 AM EDT Called patient for scheduled phone appointment today. Unable to reach x 2, LMOM. Primary Care Pharmacy Rescheduling Outreach Call center, please contact patient and reschedule telephone visit for Diabetes management within ~4 week(s). (Visit length: 30 minutes) Thank you, Verna Jensen RPh 04/12/2025 10:19 AM [facility] Work Phone: 1(488) [phone] Miscellaneous Notes* Telephone Encounter - Mey VernaPietro - 04/12/2025 10:19 AM EDT Called patient for scheduled phone appointment today. Unable to reach x 2, LMOM. Primary Care Pharmacy Rescheduling Outreach Call center, please contact patient and reschedule telephone visit for Diabetes management within ~4 week(s). (Visit length: 30 minutes) Thank you, Verna Jensen RPh 04/12/2025 10:19 AM [facility] Telephone encounter Note * Telephone Encounter [...] weeks. Pt verbalized understanding. Jeanette Rendon RN [facility]07-30-2025 Miscellaneous Notes* Telephone Encounter - Jeanette [...] PM EDT This Sw received call from [facility] asking Sw to speak with patient regarding sendingnurse to see patientregarding tube sticking out of his side. Sw noted that we do not have nursing in [place] that make home visits. Sw spoke with patient trying to discern what social service needs he has at this time. Patient states I need help with the tube sticking out of my side. Sw tried to gain more details and was able to understand that patient goes to [facility]. Patient has ostomy and is asking about ostomy care issue. Sw noted that she would place patient on hold and requested assistance from triage nurse to assess patient needs. [facility] Telephone encounter Note * Telephone Encounter - Luzmaria Bagley MSW - 04/07/2025 12:49 PM EDT This Sw received call from [facility] asking Sw to speak with patient regarding sendingnurse to see patientregarding tube sticking out of his side. Sw noted that we do not have nursing in [place] that make home visits. Sw spoke with patient trying to discern what social service needs he has at this time. Patient states I need help with the tube sticking out of my side. Sw tried to gain more details and was able to understand that patient goes to [facility]. Patient has ostomy and is asking about ostomy care issue. Sw noted that she would place patient on hold and requested assistance from triage nurse to assess patient needs. [facility]07-28-2025 Telephone encounter Note* Telephone Encounter - [...] Xi Gunter April 05, 2025 1:07 PM [facility]07-28-2025 Miscellaneous Notes* Telephone Encounter - Xi [...] 05, 2025 1:07 PM [facility] Discharge summary [facility] Medical Records Department [address] [place] [address] Emergency Department Summary 04/04/25 MR#: [id number] Acct: [id number] Name: ITALO BURGOS Rep #:[id number] : 1970 54 From: Chuy Santiago MD [...] is a 54-year-old male. He presents from nursing home. He arrived by ambulance. He denies headache. 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 Durand for diabetic neuropathy.), Prior ED [...] 75.6 H Lymph % (Auto) 14.4 L [place] % (Auto) 8.7 Eos % (Auto) 0.7 [...] Sl. 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 Call [facility] ([phone]) or report tothe closest Emergency Room. Call 911 if necessary. 04/04/25 4479 Cosigner Signature (if applicable): CC: Dr. Zaida Gaston MD ~ Signed [facility]07-27-2025 Discharge summary Author Chuy Santiago [facility] Note Date/Time April 04, 2025 4:28 pm [facility] Medical Records Department [address] [place] [address] Emergency Department Summary 04/04/25 MR#: [id number] Acct: [id number] Name: ITALO BURGOS Rep #:[id number] : 1970 54 From: Chuy Santiago MD [...] is a 54-year-old male. He presents from nursing home. He arrived by ambulance. He denies headache. 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 Durand for diabetic neuropathy.), Prior ED [...] 75.6 H Lymph % (Auto) 14.4 L [place] % (Auto) 8.7 Eos % (Auto) 0.7 [...] Sl. 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 Call [facility] ([phone]) or report to the closest Emergency Room. Call 911 if necessary. 04/04/25 1628 <Electronically signed by Chuy Santiago MD> Cosigner Signature (if applicable): CC: Dr. Zaida Gaston MD ~ Signed [facility] Work Phone: 1(574) 859-365507-07-2025 Telephone encounter Note* Telephone Encounter - Polina Molina RN - 03/15/2025 10:47 AM EDT Tried calling patient to follow up regarding medications/immunosuppressants but no answer, left voicemail for both patient Italo Burgos and alternate contact Laura Amin to call the Kidney Transplant Office back. Polina Molina RN [facility]07-07-2025 Miscellaneous Notes* Telephone Encounter - Polina Molina RN - 03/15/2025 10:47 AM EDT Tried calling patient to follow up regarding medications/immunosuppressants but no answer, left voicemail for both patient Italo Burgos and alternate contact Laura Amin to call the Kidney Transplant Office back. Ploina Molina, RN documented in this encounterMer[facility]07-07-2025 Telephone encounter Note * Telephone Encounter - 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 APRN.CNP - 03/15/2025 7:20 AM EDT Med refills needed. Not taking medications consistently so restarting bupropion at lower dose. 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 APRN.CNP [facility]07-07-2025 Miscellaneous Notes* Telephone Encounter - 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 APRN.CNP - 03/15/2025 7:20 AM EDT Med refills needed. Not taking medications consistently so restarting bupropion at lower dose. 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 APRN.CNP documented in this encounterMercy Health [facility]07-02-2025 Radiology Diagnostic study note [facility] Imaging Services [address], [place] [id number] Abdomen/Pelvis without Cont MR#: [id number] Acct: [id number] Name: ITALO BURGOS Rep #: [id number] : 1970 M 54 From: Zuleyka Solis MD PCP: Dr. Zaida Gaston MD Status: REG E R Study:Abdomen/Pelvis without Cont Date of Exa m: 03/10/25 Exam# [id number] Ordering Dr: Byron Saldana DO EXAM: CT [...] the colon consistent with constipation. Reading [facility] CC: Dr. Zaida Gaston MD; Dr. Byron Saldana DO ~ Aircraft Sales Representative: Signed [facility]06-30-2025 Telephone encounter Note* Telephone Encounter - Verna Jensen, [facility] - 03/08/2025 3:50 PM EDT Had a [...] - Hx of taking metformin and Invokana, 5641-2548, was discontinued but uncertain why. - Previously was on basal/bolus insulin, switched because of hypoglycemia - Endo diagnosis is T2DM per charts though nurse couldn't find labs confirming this. Endo does not have any documentation of him being T1DM (first seen in 2018) Will send as FYI to PCP and also suggest getting Dm dx labs ordered. Verna Jensen PharmD, [facility] Primary Care Clinical Pharmacist [facility] Work Phone: 1([phone]) 262-313606-30-2025 Miscellaneous Notes* Telephone Encounter - Verna Jensen RPh - 03/08/2025 3:50 PM EDT Had a return call from nurse, Xiang. She reported the following: - Pt last seen by Dr. uDrand in July 2024 - A1c was 8.5% [...] - Hx of taking metformin and Invokana, 8918-7738, was discontinued but uncertain why. - Previously was on basal/bolus insulin, switched because of hypoglycemia - Endo diagnosis is T2DM per charts though nurse couldn't find labs confirming this. Endo does not have any documentation of him being T1DM (first seen in 2018) Will send as FYI to PCP and also suggest getting Dm dx labs ordered. Verna Jensen PharmD, [facility] Primary Care Clinical Pharmacist * Telephone Encounter - Verna Jensen RP - 03/08/2025 3:09 PM EDT PharmMery called leaf coverer Dr. Steve Durand's office ([phone]) to confirm dx of T1 vs T2 and to also confirm Trulicity dose and any past DM medications. LMOM for nurse for someone to call me back. Can see office note from 03/08 for more detail. Verna Jensen PharmD, [facility] Primary Care Clinical Pharmacist documented in this encounterMercy Health [facility]06-30-2025 Telephone encounter Note * Telephone Encounter - Verna Jensen RPh - 03/08/2025 3:09 PM EDT PharmMery called leaf coverer Dr. Steve Durand's office ([phone]) to confirm dx of T1 vs T2 and to also confirm Trulicity dose and any past DM medications. LMOM for nurse for someone to call me back. Can see office note from 03/08 for more detail. Verna Jensen PharmD, [facility] Primary Care Clinical Pharmacist [facility]06-30-2025 History of Present illness Narrative* Verna [...] T1DM). Reports last appt with Dr. Durand (leaf coverer) was 2 months ago. Says no med [...] was able to review Averages but then rock wool insulator turned off No issues with lows Date [...] not present. Adherence: denies missed doses. Pharmacy: [facility] [place] [address] [address] [facility] [phone] [id number] Rx coverage: Payor: [facility] / Plan: [facility] DUAL [facility]PLETE PPO SNP / Product [...] Polyneuropathy Associated With Type 2 Diabetes Mellitus ([facility]) Nausea Vomiting Moderate Episode of Recurrent Major Depressive Disorder ([facility]) Stage 3a Chronic Kidney Disease ([facility]) Right Leg Weakness Gait Instability Kidney Transplant Recipient ([facility]) Type 1 Diabetes Mellitus On Insulin Therapy (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) Diarrhea Encounter for Monitoring Tacrolimus Therapy Immunosuppressive Management Encounter Following Kidney Transplant ([facility]) Nephrolithiasis PAST MEDICAL HISTORY Diagnosis Date Acute diastolic (congestive) heart failure ([facility]) Bronchitis Chronic kidney failure, stage 4 (severe) ([facility]) 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 ([facility]) 12/16/2018 Depression Detached retina DM type 2, goal HbA1c < 7% ([facility]) Erectile dysfunction, unspecified erectile dysfunction type ESRD (end stage renal disease) ([facility]) GERD (gastroesophageal reflux disease) Hyperlipidemia Kidney replaced by transplant ([facility]) Kidney stones LUANNE (obstructive sleep apnea) PNA [...] pt denies having therapist/psychiatrist [facility] on 07[facility]13/24; [facility] reports last fill was January 2024; no fill on file with [facility]; pt denies getting meds from anywhere else buPROPion XL (WELLBUTRIN XL) 300 mg 24 hr tablet Take 1 tablet by mouth once daily. Reports taking QAM but not on external fill hx Last script was from [facility] on 07/13/24; no fill hx per [facility] or [facility] pharmacy carvedilol (COREG) 12.5 mg tablet Take 1 tablet by mouth two times a day. Taking BID Cholestyramine, Bulk, powd Take one(1) scoop dissolved in two(2) to six(6) ounces(oz) of fluid by mouth daily. Reports taking 1 scoop 3x/day when he eats to help with diarrhea; not on external fill hx Updated med list; last filled at [facility] in June 2024; script at [facility] was never filled ergocalciferol 50,000 unit capsule (VITAMIN D2, DRISDOL) Take 1 capsule by mouth one time a week. Reports taking every Saturday; not on external fill hx Last script was from [facility] on 07/22/23; not filled in [...] on external fill hx; reports needing refill [facility] last filled in June 2024; no recent fills from [facility] pharmacy glucagon 3 mg/actuation nasal spray (BAQSIMI) Use 1 [place] in the nose as needed for low [...] unable to review TIR due to CGM rock wool insulator malfunction; no issues with lows; pt follows [...] as prescribed PharmD will reach out to leaf coverer to confirm diabetes dx (T1 vs T2) Requested that patient have Dexcom rock wool insulator charged and present for future visits Indicated [...] only gets his meds filled at the [facility] associated with the [facility], occasionally will get a med filled at [facility]. I called pharmacy and confirmed the following: Bupropion 75 and 300mg tabs - 75mg tab was last filled January 23, 2024; 300mg not filled since prior to 2021; [facility] doesn't have any scripts on file (were cancelled in 2023) Ergocalciferol - not filled since prior to 2021 Cholestyramine - last filled June 2024; at [facility], script is on file, was never [...] pill bottles present at f/up visit for [facility] medication review to better confirm what he [...] verbalized understanding of instructions. Verna Jensen PharmD, [facility] Primary Care Clinical Pharmacist Time spent: 60 mins documented in this encounterMercy Health [facility]06-19-2025 Telephone encounter Note * Telephone Encounter - Elizabeth Sweet - 02/25/2025 3:50 PM EDT Pt is due 05/06. Need qgenda schedule. [facility]06-19-2025 Miscellaneous Notes* Telephone Encounter - Elizabeth [...] needed for schedulers?transplant kidney documented in this encounterMercy Health Kings [facility] Hospital06-19-2025 Telephone encounter Note * Telephone Encounter [...] other pertinent information needed for schedulers?transplant kidney [facility]06-09-2025 Telephone encounter Note* Telephone Encounter - [...] you, Verna Jensen RPh 02/15/2025 9:51 AM [facility] Work Phone: [phone]) 722-827206-09-2025 Miscellaneous Notes* Telephone Encounter - Verna Jensen [...] RPh 02/15/2025 9:51 AM documented in this encounterMercy Health Kings [facility] Hospital06-03-2025 Telephone encounter Note * Telephone Encounter - Kerry Oscar RN - 02/09/2025 4:13 PM EDT Pt excluded from TCM-transplant patient and homeless-see Dr. Gaston epic note 02/05/25. [facility]06-03-2025 Miscellaneous Notes* Telephone Encounter - Kerry Oscar RN - 02/09/2025 4:13 PM EDT Pt excluded from TCM-transplant patient and homeless-see Dr. Gaston epic note 02/05/25. documented in this encounterMercy Health [facility]06-02-2025 Telephone encounter Note * Telephone Encounter - Amanda aHyes LISW - 02/08/2025 2:02 PM EDT SW attempted to return pt's phone call. SW left pt a voicemail and will await return phone call. SARA Sahu-Yvette Transplant Alligator Trapper [facility] Work Phone: [phone]) [phone] Miscellaneous Notes* Telephone Encounter - Amanda Hayes LISW - 02/08/2025 2:02 PM EDT SW attempted to return pt's phone call. SW left pt a voicemail and will await return phone call. MATTHEW Sahu Transplant Alligator Trapper documented in this encounterMercy Health Kings [facility] Hospital06-01-2025 Discharge summary [facility] Medical Records Department [address] [place] [address] Emergency Department Summary 02/07/25 MR#: [id number] Acct: [id number] Name: ITALO BURGOS Rep #:[id number] : 1970 54 From: Toni Nelson DO [...] kidney and therefore was transferred up to [facility] where they remove the kidney stone and placed aurostomy tube. Patient notices that his bag is leaking and would like a new bag. He denies fevers or chills or sweats. He is otherwise doing well. His transplant was 5 years ago. 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 Patient comfortable with plan. [place] in [place] condition. Discharge Plan Triage Chief [...] MD [Primary Care Provider] - Print Language: Greek Disposition Disposition: Home, Self Care What to do if you have Problems For any increased pain, shortness of breath, bleeding, nausea or vomiting, chestpain, or any unexpected problems, contact your Primary Care Provider. Call [facility] ([phone]) or report tothe closest Emergency Room. Call 911 if necessary. 02/07/25 1604 Cosigner Signature (if applicable): CC: Dr. Zaida Gaston MD ~ Signed [facility]06-01-2025 Discharge summary Author Toni Nelson [facility] Note Date/Time February 07, 2025 4:04p [facility] Medical Records Department [address] [facility] [place] [address] Emergency Department Summary 02/07/25 MR#: [id number] Acct: [id number] Name: ITALO BURGOS Rep #:[id number] : 1970 54 From: Toni Nelson DO [...] kidney and therefore was transferred up to [facility] where they remove the kidney stone and placed a urostomy tube. Patient notices that his bag is leaking and would like a new bag. He denies fevers or chills or sweats. He is otherwise doing well. His transplant was 5 years ago. 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 Patient comfortable with plan. Discharged [place] in stable condition. Discharge Plan Triage Chief [...] MD [Primary Care Provider] - Print Language: Greek Disposition Disposition: Home, Self Care What to do if you have Problems For any increased pain, shortness of breath, bleeding, nausea or vomiting, chestpain, or any unexpected problems, contact your Primary Care Provider. Call [facility] ([phone]) or report to the closest Emergency Room. Call 911 if necessary. 02/07/25 1604 <Electronically signed by Toni Nelson DO> Cosigner Signature (if applicable): CC: Dr. Zaida Gaston MD ~ Signed [facility] Work Phone: [phone]) 870-854605-30-2025 NoteHNO ID: [id number] Author: ZAIDA GASTON MD Service: ? Author [...] new device. Italo is currently residing at [facility], a nursing home for homeless individuals, since September. He previously [...] Type 1 diabetes mellitus (more content not included)...[facility]05-30-2025 History of Present illness Narrative* Zaida [...] new device. Italo is currently residing at [facility], a nursing home for homeless individuals, since September. He previously [...] - Follow-up appointment with Urology at the [facility] scheduled for next with Dr. [...] episode of recurrent major depressive disorder ([facility]) (F33.1) Patient expresses feelings of depression related [...] excuse any unintended typographical errors. Recording using Virtual Ports software for draft documentation of the visit was discussed with the patient/authorized underwriting account representative; all questions welcomed and answered. Patient/authorized underwriting account representative agreed to proceed Zaida Gaston MD documented in this encounterMercy Health Kings [facility]05-30-2025 Instructions* Patient Instructions* Zaida Gaston MD - 02/05/2025 11:40 AM EDT We discussed your kidney stones and nephrostomy tube: - You currently have a nephrostomy tube in place. You are changing it every 5 days and have not hadany issues managing it on your own. - You have a follow-up appointment with Urology at the [facility] next to discuss the next steps, including whether the tube will be removed or kept in place. Dr. Maryjane Quinteros will see you at [facility] [place]. - Please ensure you have transportation arranged [...] well-being: - You are currently staying at [facility], a nursing home for homeless individuals. I encourage you to [...] Attend your urology appointment next at the [facility]. - Work with the pharmacist to improve your blood sugar control and learn how to use your continuousglucose monitor. - Continue taking your medications as prescribed, including the newly added Lexapro. - Complete your standing lab orders. - Reach out to me if you have any concerns or if your symptoms worsen. documented in this encounterMercy Health [facility]05-30-2025 Telephone encounter Note * Telephone Encounter [...] hours please call or and ask the strainer mill operator to page the interventional bank president production control planner. 5) To change or schedule an appointment [...] please call Interventional Radiology nurse triage line [phone], Saturday - Saturday 9 a.m. - 4 p.m. After hours please call and ask for Interventional Radiology Fellow production control planner, pager [phone]. In the event of acute symptoms report directly to local emergency department and notify the Department of Intervention Radiology after the fact. All questions and concerns were addressed. I spent 10 minutes on the above conversation with the patient. [facility]05-30-2025 Miscellaneous Notes* Telephone Encounter - Danni [...] hours please call or and ask the strainer mill operator to page the interventional bank president production control planner. 5) To change or schedule an appointment [...] please call Interventional Radiology nurse triage line [phone], Saturday - Saturday 9 a.m. - 4 p.m. After hours please call and ask for Interventional Radiology Fellow production control planner, pager [phone]. In the event of acute symptoms report directly to local emergency department and notify the Department of Intervention Radiology after the fact. All questions and concerns were addressed. I spent 10 minutes on the above conversation with the patient. documented in this encounterMercy Health [facility]05-29-2025 Telephone encounter Note * Telephone Encounter - Azra Hogan - 02/04/2025 10:01 AM EDT Patient is an exclusion from post discharge call back program (transplant patient) [facility]05-29-2025 Miscellaneous Notes* Telephone Encounter - Azra Hogan - 02/04/2025 10:01 AM EDT Patient is an exclusion from post discharge call back program (transplant patient) documented in this encounterMercy Health Kings [facility] Hospital05-28-2025 Telephone encounter Note * Telephone Encounter - Amanda Hayes LISW - 02/03/2025 2:12 PM EDT ADDY made another attempt to contact ([phone]) pt regarding the pt possibility of him being homeless. SW left a voicemail and will await return phone call. SARA Sahu-Yvette Transplant Alligator Trapper [facility] Work Phone: [phone]) [phone] Miscellaneous Notes* Telephone Encounter - Amanda Hayes LISW - 02/03/2025 2:12 PM EDT ADDY made another attempt to contact ([phone]) pt regarding the pt possibility of him being homeless. SW left a voicemail and will await return phone call. SARA Sahu-S Transplant Alligator Trapper documented in this encounterMercy Health Kings [facility] Hospital05-28-2025 Telephone encounter Note * Telephone Encounter - Danni Singh RN - 02/03/2025 11:34 AM EDT Interventional Radiology Follow Up Call Attempted to reach Italo today for follow up from their tube placement. Unable to reach them at this time. Message left with phone number to return the call. [facility]05-28-2025 Miscellaneous Notes* Telephone Encounter - Danni Singh RN - 02/03/2025 11:34 AM EDT Interventional Radiology Follow Up Call Attempted to reach Italo today for follow up from their tube placement. Unable to reach them at this time. Message left with phone number to return the call. documented in this encounterMercy Health Kings [facility] Hospital05-27-2025 Telephone encounter Note * Telephone Encounter - Bon Concecpion RN - 02/02/2025 12:20 PM EDT Delfino Helm Anna, MD; Bon Concepcion RN I also called pt again as well and phone goes to VM but VM is full. I will sent a mychart to pt as well to contact the office for assistance with scheduling [facility]05-27-2025 Miscellaneous Notes* Telephone Encounter - Bon [...] February 02, 2025 ---- Neli Wesley MD [facility]; Bon Concepcion RN [facility] This one we can add on for [...] RN - 01/29/2025 9:00 AM EDT [facility]; Bon Concepcion RN Left message on pt's VM to contact the office to confirm procedure date and set up consultation appt. documented in this encounterMercy Health Kings Mills Hospital05-27-2025 Telephone encounter Note * Telephone Encounter - Bon Concepcion RN - 02/02/2025 10:42 AM EDT Images from the original note were not included. Called patient to discuss scheduling surgery and consult with Dr. Wesley for kidney stone removal.No answer, Mailbox full. Mobile phone would not go through. Bon Concepcion RN February 02, 2025 ---- Neli Wesley MD [facility]; Bon Concepcion RN [facility] This one we can add on for [...] Cr trending down now. Thank you Jordyn [facility]05-23-2025 Telephone encounter Note* Telephone Encounter - Bon Concepcion RN - 01/29/2025 9:00 AM EDT [facility] Y[place] MD; Bon Concepcion RN Left message on pt's VM to contact the office to confirm procedure date and set up consultation appt. [facility]05-22-2025 NoteHNO ID: [id number] Author: DENISE FORD RPh Service: Pharmacy Author [...] the following changes: mycophenolate resumed on the [place] med rec. Denise Ford [facility] Pager: [phone] 01/28/2025 1:22 PM Medication List CHANGE how [...] spray Commonly known as: BAQSIMI Use 1 [place] in the nose as needed for low [...] Your Medications These medications were sent to [facility] [place] [address] - [address] - [phone] [id number] [address] [place] [address] carvedilol 12.5 mg tabletOhiohealth Nelsonville Health Center05-22-2025 NoteHNO ID: [id number] Author: DANG MUNGUIA LSW Service: Care Management Author Type: Alligator Trapper Type: Care Mgt Progress Note Filed: 01/28/2025 [...] Transportation Arrangements Transportation Arrangements: Uber/Lyft/Ela (paid by [facility]) Handoff Communication: Handoff to: Primary Care Physician Primary Care Physician Name/Phone: Zaida Gaston MD PCP - General, Internal Medicine Since 04/26/2016 via soc Per primary team, plan for dc today and dc orders in. Pt to [facility]. CM confirmed with nursing home pt is able to return. No accepting HC as of now; primary team aware. TTR to transport. UPDATE 1:52pm: Per primary team, plan for dc tomorrow. SIGNATURE: CRISTHIAN Torres PATIENT NAME: Italo Burgos DATE: January 28, 2025 TIME: 12:54 [facility] [place]05-22-2025 NoteHNO ID: [id number] Author: SHANA CANTOR MD Service: General Internal Medicine Author Type: Resident Type: Progress Notes Filed: 02/08/2025 12:43 Note Text: Attestation signed by Shana Cantor MD at 02/08/2025 12:43 PM (Updated) [facility] STAFF: TEACHING PHYSICIAN NOTE OF PERSONAL [...] per nephrology SW/CM consult for meds and nursing home Sepsis ruled out Shana Cantor MD Pager #: [phone] Date of service: January 28, 2025 Time of service: 8:37 PM DEPARTMENT OF HOSPITAL MEDICINE PROGRESS NOTE SERVICE DATE: 01/28/2025 SERVICE TIME: 8:38 AM Hospital Medicine/Primary Attending: Shana Cantor,* NIGHT AND WEEKEND COVERAGE: [facility] COVERAGE: Days: [phone], please page Joel Chapin for patient issues. [...] and Airways Line Duration Peripheral 01/27/25 0500 [facility] Left Wrist 20 Gauge 1 day Peripheral 01/27/25 0500 Left Forearm 20 Gauge 1 day Drain Duration Surgically Inserted Drain 01/27/25 0847 [facility] Nephrostomy Right Lower Quadrant Abdomen <1 [...] sliding scale, and ongoing (more content not included)...[facility] 01-28-2025 NoteHNO ID: [id number] Author: ALTAF DE JESUS MD Service: Interventional [...] care of nephrostomy tube are located at: [email or web address] A patient education video for care of a nephrostomy tube is available on [employer]. Please use this link: [email or web address] Recommendations For Nephrostomy Tube Care: Leave tube [...] medical care of this patient. Please call [phone] if we can be of immediate assistance. For concerns between 4:30PM-7:00AM contact the on-call Interventional Radiology fellow/resident, pager [phone]. SIGNATURE: Altaf De Jesus MD PATIENT NAME: Italo Burgos DATE: January 28, 2025 TIME: 8:31 AM PAGER/CONTACT #: [phone]-21-2025 NoteHNO ID: [id number] Author: EDWIGE SORENSEN RN Service: Care Management Author Type: Registered Nurse Type: Care Mgt Initial Assessment Filed: 01/27/2025 11:54 Note Text: CARE MANAGEMENT: ASSESSMENT AND DISCHARGE PLAN SERVICE DATE: January 27, 2025 SERVICE TIME: 9:50 AM PCP: Zaida Gaston MD Primary Contact: Extended Emergency Contact Information Primary Emergency Contact: [place] [address] [facility] Mobile Relation: Other Admission Status: Inpatient Insurance Provider: [facility] DUAL COMPLETE PPO SNP Discharge Planning requested by: Per Department Practice Potential Transition Plans To Be Determined Advance Directives Current Advance Directive: None Current Living Arrangements and Support Lives with: Alone (Homeless Long Term) Type of Residence: (Long Term) Support: How do you manage to accomplish the following: Independent: Ambulation, Bathe/Shower, Dress, Meals/Meal Prep, Going to the bathroom, Medication Management Current Services/Equipment DME: Rollator Walker Discharge Planning Patient Goal(s): General wellness [place] Choice Explained: [place] Given: No Reason Not Given: [...] this time possible SNF/ECF vs return to nursing home Met with patient at bedside and introduced myself and the role of Clockmaker Apprentice. Cm will follow medical course and plan discharge accordingly. SIGNATURE: Edwige Sorensen RN PATIENT NAME: Italo Burgos DATE: January 27, 2025 TIME: 9:50 [facility]05-21-2025 NoteHNO ID: [id number] Author: RAY PINA MD Service: Critical Care Author Type: Physician Type: Progress Notes Filed: 01/27/2025 10:35 Note Text: MICU PROGRESS NOTE Please page MICU Jimenez for any concerns at [id number] Admission Date: 01/27/2025 Hospital Day # 0 [...] 0659(Not Admitted) 01/27/25699 - 01/28/25 0659 Shift 5910-3818 9670-0590 4799-1345 24 Hour Total 2320-7949 8126-7934 3943-3438 24 Hour Total INTAKE PO 0 0 [...] and Airways Line Duration Peripheral 01/27/25 0500 [facility] Left Wrist 20 Gauge <1 day Peripheral 01/27/25 0500 Left Forearm 20 Gauge <1 day Drain Duration Indwelling Urinary Catheter External Facility Wilhelm -- days Surgically Inserted Drain 01/27/25 0847 [facility] Nephrostomy Right Lower Quadrant Abdomen <1 [...] of MICU admission Barriers (more content not included)...[facility]05-20-2025 Radiology Diagnostic study note [facility] Imaging Services [address], [place] [address] Chest PA and Lateral MR#: [id number] Acct: [id number] Name: ITALO BURGOS Rep #: [id number] : 1970 M 54 From: Gallito Jack MD PCP: Dr. Zaida Gaston MD Status: REG E R Study:Chest PA and Lateral Date of Exam: 01/26/25 Exam# [id number] Ordering Dr: Yony Solis DO PROCEDURE: CHEST PA AND LATERAL 01/26/2025 REASON FOR EXAM: COUGH TECHNIQUE: Frontal and lateral views of the chest. COMPARISON: None. FINDINGS: Hardware: None. Heart: Heart size is mildly enlarged. Mediastinum: The mediastinal contour is unremarkable. Lungs: The lungs are clear. Bones: The bones are unremarkable. RAD/Chest PA and Lateral IMPRESSION: NO ACUTE FINDINGS. Reading Location: [place] [address] CC: Dr. Zaida Gaston MD; Dr. Yony Solis DO ~ Aircraft Sales Representative: Signed [facility]05-20-2025 Radiology Diagnostic study note [facility] Imaging Services [address], [place] [id number] Abdomen/Pelvis without Cont MR#: [id number] Acct: [id number] Name: ITALO BURGOS Rep #: [id number] : 1970 M 54 From: Gallito Jack MD PCP: Dr. Zaida Gaston MD Status: REG E R Study:Abdomen/Pelvis without Cont Date of Exa m: 01/26/25 Exam# [id number] Ordering Dr: Le,Yony DO PROCEDURE: ABDOMEN/PELVIS WITHOUT [...] surrounding inflammation. Adrenals: Normal. Kidneys: Severely atrophic curyung kidneys. Right pelvic transplanted kidney transplanted right kidney ureter 10 mm calculus with severe upstream hydroureteronephrosis. Transplant kidney perinephric stranding which may represent back pressure. Bladder: Markedly concentrically thickened wall. Reproductive Organs: Unremarkable Bowel: Appendix: Lymph nodes: Vasculature: Peritoneum / Retroperitoneum: Mild atherosclerosis. Small volume ascites. Bones: CT/Abdomen/Pelvis without Cont IMPRESSION: 1. Transplanted right kidney obstructing ureteral calculus with uwqacudq-db-usbezt upstream hydroureteronephrosis. 2. Severely thickened urinary bladder wall suspicious for cystitis. 3. Severely atrophic curyung kidneys. 4. Anasarca. 5. Small volume ascites. OVERALL FINAL ASSESSMENT: . LI-RADS is not meant to be used in patients <18 years or patients with cirrhosisdue to congenital hepatic fibrosis or due to vascular disorders, because these patients have a lower chance of developing HCC. Reading Location: [id number] CC: Dr. Zaida Gaston MD; Dr. Yony Solis DO ~ Aircraft Sales Representative: Signed [facility]04-30-2025 Telephone encounter Note* Telephone Encounter - Deep Hnason LPN - 01/06/2025 3:31 PM EDT Called and left message for patient to call office back for results. Deep Hanson LPN January 06, 2025 3:32 PM [facility]04-30-2025 Miscellaneous Notes* Telephone Encounter - Deep [...] see if he has rescheduled with his leaf coverer as his Hgba1c is greater then 10 so diabetes is very uncontrolled at this time. Thank you 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 APRN.CNP documented in this encounterMer[facility]04-30-2025 Telephone encounter Note * Telephone Encounter - 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 APRN.CNP - 01/06/2025 1:39 PM EDT Patient needs to reschedule missed appointment to review labs. Also check to see if he has rescheduled with his leaf coverer as his Hgba1c is greater then 10 so diabetes is very uncontrolled at this time. Thank you 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 APRN.CNP [facility]04-23-2025 NoteHNO ID: [id number] Author: DELIA KAUFMAN APRN.CNP Service: ? Author [...] accidents of his bowel at the homeless nursing home and has to be seen to be [...] over a year ago. Needs to call [facility] to schedule. REVIEW OF SYSTEMS See HPI PAST MEDICAL HISTORY Diagnosis Date Acute diastolic (congestive) heart failure (HCC) Bronchitis Chronic kidney failure, stage 4 (severe) ([facility]) 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 ([facility]) 12/16/2018 Depression Detached retina DM type 2, goal HbA1c < 7% ([facility]) Erectile dysfunction, unspecified erectile dysfunction type ESRD (end stage renal disease) ([facility]) GERD (gastroesophageal reflux disease) Hyperlipidemia Kidney replaced [...] AND STENT 1999 EGD 12/04/2018 EGD W/O [facility] SPEC VARICIES INJ 04/01/2024 [...] cap in pm Blood-Glucose Meter,Continuous (DEXCOM G6 FORESTRY HUNTER) misc 1 Each continuous. Blood-Glucose Sensor (DEXCOM [...] lispro protamine-lispro units (more content not included)... [facility]01-20-2025 NoteHNO ID: [id number] Author: ZAIDA GASTON MD Service: ? Author [...] Date Acute diastolic (congestive) heart failure ([facility]) Bronchitis Chronic kidney failure, stage 4 (severe) ([facility]) 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 ([facility]) 12/16/2018 Depression Detached retina DM type 2, goal HbA1c < 7% ([facility]) Erectile dysfunction, unspecified erectile dysfunction type ESRD (end stage renal disease) ([facility]) GERD (gastroesophageal reflux disease) Hyperlipidemia Kidney replaced [...] AND STENT 1999 EGD 12/04/2018 EGD W/O [facility] SPEC VARICIES INJ 04/01/2024 [...] ergocalciferol 50,000 unit capsu (more content not included)...[facility]01-20-2025 History of Present illness Narrative* Zaida [...] Date Acute diastolic (congestive) heart failure ([facility]) Bronchitis Chronic kidney failure, stage 4 (severe) ([facility]) 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 ([facility]) 12/16/2018 Depression Detached retina DM type 2, goal HbA1c < 7% ([facility]) Erectile dysfunction, unspecified erectile dysfunction type ESRD (end stage renal disease) ([facility]) GERD (gastroesophageal reflux disease) Hyperlipidemia Kidney replaced [...] & STENT 1999 EGD 12/04/2018 EGD W/O [facility] SPEC VARICIES INJ 04/01/2024 [...] mg chewable tablet Blood-Glucose Meter,Continuous (DEXCOM G6 FORESTRY HUNTER) misc Blood-Glucose Sensor (DEXCOM G6 SENSOR) glenn Blood-Glucose Transmitter (DEXCOM G6 TRANSMITTER) glenn Cholestyramine, Bulk, powd Insulin Syringe-Needle U-100 1 mL 29 gauge x 1/2 Insulin [place], Disposable, (BD ULTRA-FINE SANDRA PEN NEEDLE) 32 [...] RELEASE Zaida Gaston MD documented in this encounterMer[facility]01-07-2025 NoteHNO ID: [id number] Author: MATTY LEWIS MA Service: ? Author Type: Billing Clerk Type: Progress Notes Filed: 09/15/2024 10:11 Note [...] or unnecessary to reach patient: Left message [employer] message sent Navigation Signature: Matty Lewis MA September 15, 2024 10:09 [facility]01-07-2025 History of Present illness Narrative* [...] or unnecessary to reach patient: Left message [employer] message sent Navigation Signature: Matty Lewis MA [...] or unnecessary to reach patient: Left message [employer] message sent Navigation Signature: Matty Lewis MA September 08, 2024 1:38 PM documented in this encounterMercy Health [facility]12-31-2024 NoteHNO ID: [id number] Author: MATTY LEWIS MA Service: ? Author Type: Billing Clerk Type: Progress Notes Filed: 09/15/2024 10:11 Note [...] or unnecessary to reach patient: Left message [employer] message sent Navigation Signature: Matty Lewis MA September 08, 2024 1:38 [facility]12-31-2024 NotePatient Outreach (NETNAV) ITALO BURGOS ([id number]) 1970 M Date Time Provider Department 09/08/24 [...] or unnecessary to reach patient: Left message [employer] message sent Navigation Signature: Matty Lewis MA [...] or unnecessary to reach patient: Left message [employer] message sent Navigation Signature: Matty Lewis MA September 15, 2024 10:09 AM Allergies As of Date: 09/08/2024 (No Known Allergies) Date Reviewed: 06/18/2024 Reviewed by: Deep Hanson LPN - Fully Assessed Reason for Visit: Population Health Navigation Outreach [3910] Cmt: [facility] WORK[facility] PCSA Visit Diagnosis:Type 1 diabetes mellitus on insulin therapy (HCC) [E10.9] Order(s):ALBUMIN/CREATININE RATIO, URINE [SQUACR] Order #: [id number] FUTURE Prescriptions as of 09/15/2024 - pantoprazole [...] in pm - Blood-Glucose Meter,Continuous (DEXCOM G6 FORESTRY HUNTER) misc 1 Each continuous. - Blood-Glucose Sensor [...] Units subcutaneously daily at bedtime. - Insulin [place], Disposable, (BD ULTRA-FINE SANDRA PEN NEEDLE) 32 [...] 3 mg/actuation nasal spray (BAQSIMI) Use 1 [place] in the nose as needed for low blood sugar. May repeat after 15 minutes using a new device if there is no response. - aspirin 81 mg chewable tablet chew and swallow 1 tablet by mouth once daily. - fluticasone (FLONASE) 50 mcg/actuation nasal spray Use 2 Sprays in each nostril once daily. - CPAP Initi (more content not included)...[facility]11-22-2024 Telephone encounter Note* Telephone Encounter - Monik Chinchilla MA - 07/31/2024 3:17 PM EST Faxed. [facility]11-22-2024 Miscellaneous Notes* Telephone Encounter - Monik [...] 31, 2024 1:14 PM documented in this encounterMercy Health [facility]11-22-2024 Telephone encounter Note * Telephone Encounter [...] Murphy RN July 31, 2024 1:14 PM [facility]11-19-2024 Evaluation note* Diagnosis Onset Date Resolution Status Admit Date Diabetic nephropathy chronic [facility] 2023 10:37am Diabetic retinopathy [facility] 2023 10:37am Hypertension chronic July 10:37am Overweight chronic July 28, 2024 10:37am Type 2 diabetes mellitus wit h diabetic polyneuropathy chronic July 28, 2024 10:37am [facility] Work Phone: 1(544) 543-730211-04-2024 Miscellaneous Notes* Telephone Encounter - Torrie Moore [...] 13, 2024 3:19 PM documented in this encounterMercy Health [facility]11-04-2024 Telephone encounter Note * Telephone Encounter [...] Moore LPN July 13, 2024 3:19 PM [facility]11-04-2024 NoteHNO ID: [id number] Author: MATTY LEWIS MA Service: ? Author Type: Billing Clerk Type: Progress Notes Filed: 07/13/2024 13:24 Note [...] Matty Lewis MA July 13, 2024 9:39 [facility]11-04-2024 History of Present illness Narrative* [...] 13, 2024 9:39 AM documented in this encounterMercy Health [facility]11-04-2024 NotePatient Outreach (NETNAV) LORETTAITALO ([id number]) 1970 M Date Time Provider Department 07/13/24 [...] Visit: Population Health Navigation Outreach [3910] Cmt: [facility] LUCIA MEI PCSA Prescriptions as of 07/13/2024 - tacrolimus IR (PROGRAF) 1 mg capsule Take 2 caps in am and 1 cap in pm - Blood-Glucose Meter,Continuous (DEXCOM G6 FORESTRY HUNTER) misc 1 Each continuous. - Blood-Glucose Sensor [...] Units subcutaneously daily at bedtime. - Insulin [place], Disposable, (BD ULTRA-FINE SANDRA PEN NEEDLE) 32 [...] 3 mg/actuation nasal spray (BAQSIMI) Use 1 [place] in the nose as needed for low [...] [R31.29] 09/30/2014 Diabetic polyneu (more content not included)...[facility] 06-23-2024 Telephone encounter Note* Telephone Encounter - Amanda Hayse LISW - 06/23/2024 10:57 AM EDT SW returned pt's phone call. Pt stated his Envarsus went to $92 a month. Pt reports he still has [facility] Dual (Medicare & Medicaid) and he is not sure why his copay went up. SW informed pt that they can apply for assistance for envarsus via [employer]. SW emailed pt his portion of the EVRGRus application, as well as a 30 day copay card. SW will work on her portion of the application. Pt denies any other questions/concerns at this time. Pt has SW contact information for any future questions/concerns. SARA Sahu-S Transplant Alligator Trapper [facility] Work Phone: [phone] Miscellaneous Notes* Telephone Encounter - Amanda Hayes LISW - 06/23/2024 10:57 AM EDT SW returned pt's phone call. Pt stated his Envarsus went to $92 a month. Pt reports he still has [facility] Dual (Medicare & Medicaid) and he is not sure why his copay went up. SW informed pt that they can apply for assistance for envarsus via [employer]. SW emailed pt his portion of the envarsus application, as well as a 30 day copay card. SW will work on her portion of the application. Pt denies any other questions/concerns at this time. Pt has SW contact information for any future questions/concerns. MATTHEW Sahu Transplant Alligator Trapper documented in this encounterMercy Health [facility]10-10-2024 NoteHNO ID: [id number] Author: ZAIDA GASTON MD Service: ? Author [...] Date Acute diastolic (congestive) heart failure ([facility]) Bronchitis Chronic kidney failure, stage 4 (severe) ([facility]) 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 ([facility]) 12/16/2018 Depression Detached retina DM type 2, goal HbA1c < 7% ([facility]) Erectile dysfunction, unspecified erectile dysfunction type ESRD (end stage renal disease) ([facility]) GERD (gastroesophageal reflux disease) Hyperlipidemia Kidney replaced [...] AND STENT 1999 EGD 12/04/2018 EGD W/O [facility] SPEC VARICIES INJ 04/01/2024 [...] 1 mg capsule Blood-Glucose Meter,Continuous (DEXCOM G6 FORESTRY HUNTER) misc Blood-Glucose Sensor (DEXCOM G6 SENSOR) glenn [...] mg chewable tablet fluticasone (more content not included)...[facility]10-10-2024 History of Present illness Narrative* Zaida [...] Date Acute diastolic (congestive) heart failure ([facility]) Bronchitis Chronic kidney failure, stage 4 (severe) ([facility]) 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 ([facility]) 12/16/2018 Depression Detached retina DM type 2, goal HbA1c < 7% ([facility]) Erectile dysfunction, unspecified erectile dysfunction type ESRD (end stage renal disease) ([facility]) GERD (gastroesophageal reflux disease) Hyperlipidemia Kidney replaced [...] & STENT 1999 EGD 12/04/2018 EGD W/O [facility] SPEC VARICIES INJ 04/01/2024 [...] 1 mg capsule Blood-Glucose Meter,Continuous (DEXCOM G6 FORESTRY HUNTER) misc Blood-Glucose Sensor (DEXCOM G6 SENSOR) glenn [...] 1 mL 29 gauge x 1/2 Insulin [place], Disposable, (BD ULTRA-FINE SANDRA PEN NEEDLE) 32 [...] hydration Zaida Gaston MD documented in this encounterMercy Health [facility] Hospital10-10-2024 Telephone encounter Note * Telephone Encounter - Amanda Hayes LISW - 06/18/2024 11:35 AM EDT SW attempted to call pt per request of SENIOR NET SOFTWARE DEVELOPER regarding possible copay issues for Envarsus. In reviewing pt's chart is appears that pt has [facility] Dual (Medicare & Medicaid.) SW attempted to contact pt and SW left a message. SW will await return phone call. MATTHEW Sahu Transplant Alligator Trapper [facility] Work Phone: [phone] Miscellaneous Notes* Telephone Encounter - Amanda Hayes LISW - 06/18/2024 11:35 AM EDT SW attempted to call pt per request of SENIOR NET SOFTWARE DEVELOPER regarding possible copay issues for Envarsus. In reviewing pt's chart is appears that pt has [facility] Dual (Medicare & Medicaid.) SW attempted to contact pt and SW left a message. SW will await return phone call. MATTHEW Sahu Transplant Alligator Trapper documented in this encounterMercy Health [facility]10-08-2024 Telephone encounter Note * Telephone Encounter - Alana Kent APRN.CNP - 06/16/2024 1:30 PM EDT Pt called stating he has been out of Envarsus x 1 week and is unable to afford co-pay. Will try switching to tacrolimus temporarily and discuss with social media sr strategy manager if pt is eligible for patient assistance. Pt currently on 2.25 mg Envarsus will start tac 2 Alana Kent APRN.ANDRE' [facility]10-08-2024 Miscellaneous Notes* Telephone Encounter - Alana Kent APRN.CNP - 06/16/2024 1:30 PM EDT Pt called stating he has been out of Envarsus x 1 week and is unable to afford co-pay. Will try switching to tacrolimus temporarily and discuss with social media sr strategy manager if pt is eligible for patient assistance. Pt currently on 2.25 mg Envarsus will start tac 2 Alana Kent APRN.SENIOR NET SOFTWARE DEVELOPER' documented in this encounterMercy Health Kings [facility] Hospital10-08-2024 Telephone encounter Note * Telephone Encounter - Ramya Hernandez - 06/16/2024 12:31 PM EDT Patient called regarding his Envarsus, He has been out for a week. His insurance is telling him it is a tier 4 medication and it is $100 of which he cannot afford. . Requesting a return call from the phlebotomy coordinator. Please call Italo at [phone]. [facility] Work Phone: [phone] Miscellaneous Notes* Telephone Encounter - Ramya Hernandez - 06/16/2024 12:31 PM EDT Patient called regarding his Envarsus, He has been out for a week. His insurance is telling him it is a tier 4 medication and it is $100 of which he cannot afford. . Requesting a return call from the phlebotomy coordinator. Please call Italo at [phone]. documented in this encounterMercy Health [facility] Hospital09-25-2024 History of Present illness Narrative* Verna Jensen RPh - 06/03/2024 12:02 PM EDT Primary Care Pharmacy Panel Management This patient has been identified through Specialty Integration/Value-Based Operations Diabetes ListReview by the primary care pharmacy team. Patient with Type 1 DM, will not place PharmD referral at this time. Verna Jensen RPh documented in this encounterMercy Health Kings [facility] Hospital09-25-2024 NoteHNO ID: [id number] Author: VERNA JENSEN RPh Service: ? Author Type: Pharmacist Type: Progress Notes Filed: 06/03/2024 12:02 Note Text: Primary Care Pharmacy Panel Management This patient has been identified through Specialty Integration/Value-Based Operations Diabetes List Review by the primary care pharmacy team. Patient with Type 1 DM, will not place PharmD referral at this time. Verna Jensen [facility]PKet[facility]09-[facility]-2024 NotePatient Outreach (PHMEWO) ITALO BURGOS ([id number]) 1970 M Date Time Provider Department 06/03/24 [...] of 06/03/2024 - Blood-Glucose Meter,Continuous (DEXCOM G6 FORESTRY HUNTER) misc 1 Each continuous. - Blood-Glucose Sensor [...] Each as needed. For Intercavernal Injections - qybuscswsk-qnlnjnpyurdh-ytsvqyvwkis 30 MG - 1 MG - 10 [...] for every 40 >180 mg/dL) - Insulin [place], Disposable, (BD ULTRA-FINE SANDRA PEN NEEDLE) 32 [...] 3 mg/actuation nasal spray (BAQSIMI) Use 1 [place] in the nose as needed for low [...] dysfunction) [N52.9] 09/30/2014 (more content not included)... [facility]09-09-2024 Telephone encounter Note* Telephone Encounter - 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 APRN.CNP - 05/18/2024 3:13 PM EDT Prescriptions printed and signed. Please send to [employer] as requested Thank you 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 APRN.ANDRE [facility]09-09-2024 Miscellaneous Notes* Telephone Encounter - 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 APRN.CNP - 05/18/2024 3:13 PM EDT Prescriptions printed and signed. Please send to [employer] as requested Thank you 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 APRN.SENIOR NET SOFTWARE DEVELOPER * Telephone Encounter - Josseline Murphy RN - 05/18/2024 1:32 PM EDT Patient calls and states that he uses Dexacom 6 and He needs rock wool insulator and sensor. Patient gets supplies for [employer]. Patient had received previous Dexacom G6 order from Pharmacy. Patient has seen [facility] for diabetes. Josseline Murphy RN * [...] that he is using. Reports he contacted [employer] of his request for a new Dexcom [...] DME company for Dexcom, but then says [employer] will be faxing orders. [employer] is a DME company for Dexcom. Xiang Wilson MA * Telephone Encounter - Xi Moreno - 05/14/2024 10:11 AM EDT Italo is calling Zaida Gaston MD today to request the name of [employer] diabetic supply company for theDexcom G6 , patient will call them to have them fax the need for supplies, Please watch fax for this request from [employer] Patient has been identified by name and birthdate. Duration of symptoms: N/A Person calling: self Call patient at: on cell [phone] (home) [phone] (cell) Was an appointment scheduled: No Closing statement: Results or non-symptom based questions: Thank you for calling [facility], your call will be returned within the next business day. Xi Wilson documented in this encounterMercy Health [facility]09-09-2024 Telephone encounter Note * Telephone Encounter - Josseline Murphy RN - 05/18/2024 1:32 PM EDT Patient calls and states that he uses Dexacom 6 and He needs rock wool insulator and sensor. Patient gets supplies for [employer]. Patient had received previous Dexacom G6 order from Pharmacy. Patient has seen Verna Marsteller for diabetes. Josseline Murphy RN [facility]09-09-2024 Telephone encounter Note* Telephone Encounter - Monik Chinchilla MA - 05/18/2024 1:07 PM EDT Left message for return call. [facility]09-09-2024 Telephone encounter Note* Telephone Encounter - 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 APRN.ANDRE - 05/18/2024 12:28 PM EDT No forms received. Can I print prescription for this and just fax? Also, I do not see previous order for this. Which dexcom has he been using and does he need sensors as well? Thank you 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 APRN.ANDRE [facility]09-09-2024 Telephone encounter Note* Telephone Encounter - Kirti Rehman RN - 05/18/2024 11:35 AM EDT Patient requesting a new Dexcom meter. Reports lost his other one. Patient does have fingerstick glucometer currently, that he is using. Reports he contacted [employer] of his request for a new Dexcom and they were supposed to fax forms to PCP to complete and send back. Please call patient with any updates regarding this. Thank you. [facility]09-09-2024 Telephone encounter Note* Telephone Encounter - Xiang Wilson MA - 05/18/2024 10:24 AM EDT LM for patient to contact office to clarify what he is asking for. Below states he is asking for DME company for Dexcom, but then says [employer] will be faxing orders. [employer] is a DME company for Dexcom. Xiang Wilson MA [facility]09-05-2024 Telephone encounter Note* Telephone Encounter - Xi Moreno - 05/14/2024 10:11 AM EDT Italo is calling Zaida Gaston MD today to request the name of [employer] diabetic supply company for theDexcom G6 , patient will call them to have them fax the need for supplies, Please watch fax for this request from [employer] Patient has been identified by name and birthdate. Duration of symptoms: N/A Person calling: self Call patient at: on cell [phone] (home) [phone] (cell) Was an appointment scheduled: No Closing statement: Results or non-symptom based questions: Thank you for calling [facility], your call will be returned within the next business day. Xi Gunter [facility]07-24-2024 Attending History and physical note* Lali [...] : 1970 REFERRING PHYSICIAN: 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 [address] [facility] [address] CHIEF COMPLAINT: Patient presents with: Consult: Colonoscopy [...] has type 2 diabetes he follows with [facility], last appointment was 12/2023. Diabetes is uncontrolled most recent hemoglobin A1c was 10.2. Italo followed up with endocrinology today his hemoglobin A1c was 10.1. Dr. Durand increased his Trulicity but he is unsure to what dose. Italo has undergone prior endoscopy. Last EGD & colonoscopy in 11/[address] Raman at [facility] EGD Impression: - Normal esophagus. - Normal [...] 1 Each as needed. For Intercavernal Injections wvusifjcgf-zdwntmjjrcdk-atdmeabcuaw 30 MG - 1 MG - 10 [...] units for every 40 >180 mg/dL) Insulin [place], Disposable, (BD ULTRA-FINE SANDRA PEN NEEDLE) 32 [...] 3 mg/actuation nasal spray (BAQSIMI) Use 1 [place] in the nose as needed for low [...] Date Acute diastolic (congestive) heart failure ([facility]) Bronchitis Chronic kidney failure, stage 4 (severe) ([facility]) 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 ([facility]) 12/16/2018 Depression Detached retina DM type 2, goal HbA1c < 7% ([facility]) Erectile dysfunction, unspecified erectile dysfunction type ESRD (end stage renal disease) ([facility]) GERD (gastroesophageal reflux disease) Hyperlipidemia Kidney replaced [...] entered by the nurse and reviewed by ca Nursing Notes: Winifred Yeung RN 03/24/2024 4:12 [...] edited and updated as necessary. Nia James APRN.SENIOR NET SOFTWARE DEVELOPER [facility]07-24-2024 History and physical note* Lali Raman MD - 04/01/2024 12:30 PM EDT HISTORY AND PHYSICAL Italo Burgos : 1970 REFERRING PHYSICIAN: 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 [address] [facility] [address] CHIEF COMPLAINT: Patient presents with: Consult: Colonoscopy [...] has type 2 diabetes he follows with [facility], last appointment was 12/2023. Diabetes is uncontrolled most recent hemoglobin A1c was 10.2. Italo followed up with endocrinology today his hemoglobin A1c was 10.1. Dr. Durand increased his Trulicity but he is unsure to what dose. Italo has undergone prior endoscopy. Last EGD & colonoscopy in 11/[address] Raman at [facility] EGD Impression: - Normal esophagus. - Normal [...] 1 Each as needed. For Intercavernal Injections fgpwzcmhsx-vpkowdtyrtto-shielaowgbm 30 MG - 1 MG - 10 [...] units for every 40 >180 mg/dL) Insulin [place], Disposable, (BD ULTRA-FINE SANDRA PEN NEEDLE) 32 [...] 3 mg/actuation nasal spray (BAQSIMI) Use 1 [place] in the nose as needed for low [...] Date Acute diastolic (congestive) heart failure ([facility]) Bronchitis Chronic kidney failure, stage 4 (severe) ([facility]) 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 ([facility]) 12/16/2018 Depression Detached retina DM type 2, goal HbA1c < 7% ([facility]) Erectile dysfunction, unspecified erectile dysfunction type ESRD (end stage renal disease) ([facility]) GERD (gastroesophageal reflux disease) Hyperlipidemia Kidney replaced [...] entered by the nurse and reviewed by ca Nursing Notes: Winifred Yeung RN 03/24/2024 4:12 [...] edited and updated as necessary. Nia James APRN.SENIOR NET SOFTWARE DEVELOPER [facility]07-24-2024 History and physical note* Lali Raman [...] : 1970 REFERRING PHYSICIAN: 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 [address] [facility] [address] CHIEF COMPLAINT: Patient presents with: Consult: Colonoscopy [...] has type 2 diabetes he follows with [facility], last appointment was 12/2023. Diabetes is uncontrolled most recent hemoglobin A1c was 10.2. Italo followed up with endocrinology today his hemoglobin A1c was 10.1. Dr. Durand increased his Trulicity but he is unsure to what dose. Italo has undergone prior endoscopy. Last EGD & colonoscopy in 11/[address] Raman at [facility] EGD Impression: - Normal esophagus. - Normal [...] 1 Each as needed. For Intercavernal Injections qdpaoiijmu-honxobbjyfzb-mwzqbldfcfi 30 MG - 1 MG - 10 [...] units for every 40 >180 mg/dL) Insulin [place], Disposable, (BD ULTRA-FINE SANDRA PEN NEEDLE) 32 [...] 3 mg/actuation nasal spray (BAQSIMI) Use 1 [place] in the nose as needed for low [...] Date Acute diastolic (congestive) heart failure ([facility]) Bronchitis Chronic kidney failure, stage 4 (severe) ([facility]) 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 ([facility]) 12/16/2018 Depression Detached retina DM type 2, goal HbA1c < 7% ([facility]) Erectile dysfunction, unspecified erectile dysfunction type ESRD (end stage renal disease) ([facility]) GERD (gastroesophageal reflux disease) Hyperlipidemia Kidney replaced [...] entered by the nurse and reviewed by ca Nursing Notes: Winifred Yeung RN 03/24/2024 4:12 [...] edited and updated as necessary. Nia James APRN.SENIOR NET SOFTWARE DEVELOPER * Lali Raman MD - 04/01/2024 12:30 PM EDT HISTORY AND PHYSICAL Italo Burgos : 1970 REFERRING PHYSICIAN: Delia [address] [facility] [address] CHIEF COMPLAINT: Patient presents with: Consult: Colonoscopy [...] has type 2 diabetes he follows with [facility], last appointment was 12/2023. Diabetes is uncontrolled most recent hemoglobin A1c was 10.2. Italo followed up with endocrinology today his hemoglobin A1c was 10.1. Dr. Durand increased his Trulicity but he is unsure to what dose. Italo has undergone prior endoscopy. Last EGD & colonoscopy in 11/[address] Raman at [facility] EGD Impression: - Normal esophagus. - Normal [...] 1 Each as needed. For Intercavernal Injections ynjvsmxjps-ezfosxkendty-hllwafdfnib 30 MG - 1 MG - 10 [...] units for every 40 >180 mg/dL) Insulin [place], Disposable, (BD ULTRA-FINE SANDRA PEN NEEDLE) 32 [...] 3 mg/actuation nasal spray (BAQSIMI) Use 1 [place] in the nose as needed for low [...] Chronic kidney failure, stage 4 (severe) ([facility]) 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 ([facility]) 12/16/2018 Depression Detached retina DM type 2, [...] entered by the nurse and reviewed by ca Nursing Notes: Winiferd Yeung RN 03/24/2024 4:12 PM Signed REVIEW [...] edited and updated as necessary. Nia James APRN.SENIOR NET SOFTWARE DEVELOPER documented in this encounterMercy Health [facility]07-24-2024 Telephone encounter Note * Telephone Encounter - Anita Manriquez MA - 04/01/2024 12:17 PM EDT Images from the original note were not included. Lali Raman MD One large container thanks (wasn't able to state that in [facility]) Pharmacy notified. Anita Manriquez MA [facility]07-24-2024 Miscellaneous Notes* Telephone Encounter - Anita Manriquez MA - 04/01/2024 12:17 PM EDT Images from the original note were not included. Lali Raman MD One stewart bedolla (wasn't able to state that in [facility]) Pharmacy notified. Anita Manriquez MA * Telephone Encounter - Anita Manriquez MA - 04/01/2024 11:58 AM EDT [facility] pharmacy calling to check on the quantity for the Cholestyramine that was ordered.States 1G. Is patient to take daily for a certain amount of time? Do you want him to packets or large container? [phone] Khurram, the pharmacist is calling to verify. Please review and advise. Anita Manriquez MA documented in this encounterMercy Health [facility] Hospital07-24-2024 Telephone encounter Note * Telephone Encounter - Anita Manriquez MA - 04/01/2024 11:58 AM EDT [facility] pharmacy calling to check on the quantity for the Cholestyramine that was ordered.States 1G. Is patient to take daily for a certain amount of time? Do you want him to packets or large container? [phone] Khurram, the pharmacist is calling to verify. Please review and advise. Anita Manriquez MA [facility]07-16-2024 Nurse Note* Winifred Yeung RN - 03/24/2024 4:46 PM EDT This Nurse reviewed and provided patient with copy of written instructions and education on EGD andcolonoscopy. The patient verbalized understanding and was given a number for questions. Winifred Yeung RN March 24, 2024 4:47 PM [facility]07-16-2024 Nurse Note* Winifred Yeung RN - [...] 12/04/2018 Winifred Yeung RN documented in this encounterMercy Health [facility] Hospital07-16-2024 Nurse Note* Winifred Yeung RN - [...] N/A Last Colonoscopy: 12/04/2018 Winifred Yeung RN [facility]07-16-2024 History of Present illness Narrative* Nia James APRN.SENIOR NET SOFTWARE DEVELOPER - 03/24/2024 4:00 PM EDT HISTORY AND PHYSICAL Italo Burgos : 1970 REFERRING PHYSICIAN: 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 [address] [facility] [address] CHIEF COMPLAINT: Patient presents with: Consult: Colonoscopy [...] has type 2 diabetes he follows with [facility], last appointment was 12/2023. Diabetes is uncontrolled most recent hemoglobin A1c was 10.2. Italo followed up with endocrinology today his hemoglobin A1c was 10.1. Dr. Durand increased his Trulicity but he is unsure to what dose. Italo has undergone prior endoscopy. Last EGD & colonoscopy in 11/[address] Raman at [facility] EGD Impression: - Normal esophagus. - Normal [...] 1 Each as needed. For Intercavernal Injections leygreykes-ejbaaiexsyox-znindkkntss 30 MG - 1 MG - 10 [...] units for every 40 >180 mg/dL) Insulin [place], Disposable, (BD ULTRA-FINE SANDRA PEN NEEDLE) 32 [...] 3 mg/actuation nasal spray (BAQSIMI) Use 1 [place] in the nose as needed for low [...] Date Acute diastolic (congestive) heart failure ([facility]) Bronchitis Chronic kidney failure, stage 4 (severe) ([facility]) 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 ([facility]) 12/16/2018 Depression Detached retina DM type 2, goal HbA1c < 7% ([facility]) Erectile dysfunction, unspecified erectile dysfunction type ESRD (end stage renal disease) ([facility]) GERD (gastroesophageal reflux disease) Hyperlipidemia Kidney replaced [...] entered by the nurse and reviewed by ca Nursing Notes: Winifred Yeung RN 03/24/2024 4:12 [...] edited and updated as necessary. Nia James APRN.SENIOR NET SOFTWARE DEVELOPER documented in this encounterMercy Health [facility]07-10-2024 History of Present illness Narrative* 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 APRN.SENIOR NET SOFTWARE DEVELOPER - 03/18/2024 5:44 PM EDT Chief Complaint [...] 1 Each as needed. For Intercavernal Injections sfsaomrokt-iofnjaoishja-kkukqhywqno 30 MG - 1 MG - 10 [...] units for every 40 >180 mg/dL) Insulin [place], Disposable, (BD ULTRA-FINE SANDRA PEN NEEDLE) 32 [...] 3 mg/actuation nasal spray (BAQSIMI) Use 1 [place] in the nose as needed for low [...] - Instructed patient to contact office or cqkqm-nt-ajjr after-hours promptly should condition worsen or any new symptoms appear. - [facility] and after hours crisis line Prescription instructions reviewed with patient as applicable. Potential red flag symptoms discussed with the patient. Reviewed appropriate action plan to take if red flag symptoms occur. Patient agreeable to treatment plan 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 APRN.CNP documented in this encounterMercy Health [facility]06-19-2024 Telephone encounter Note * Telephone Encounter - Kirti Rehman RN - 02/26/2024 2:40 PM EDT Octavia with [employer] calling and requesting patient's most recent office visit note to be faxed to them for processing of patient's Dexcom CGM. Faxed as requested to [phone]. Thank you. [facility]06-19-2024 Miscellaneous Notes* Telephone Encounter - Kirti Rehman RN - 02/26/2024 2:40 PM EDT Octavia with [facility] calling and requesting patient's most recent office visit note to be faxed to them for processing of patient's Dexcom CGM. Faxed as requested to [phone]. Thank you. documented in this encounterMercy Health [facility]05-15-2024 History of Present illness Narrative* 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 APRN.SENIOR NET SOFTWARE DEVELOPER - 01/22/2024 4:43 PM EDT CC: Patient [...] Date Acute diastolic (congestive) heart failure ([facility]) Bronchitis Chronic kidney failure, stage 4 (severe) ([facility]) 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 ([facility]) 12/16/2018 Depression Detached retina DM type 2, goal HbA1c < 7% ([facility]) Erectile dysfunction, unspecified erectile dysfunction type ESRD (end stage renal disease) ([facility]) GERD (gastroesophageal reflux disease) Hyperlipidemia Kidney replaced [...] 1 Each as needed. For Intercavernal Injections ipnyodkrsz-aqwjptvrftuv-mukbsnbfrbb 30 MG - 1 MG - 10 [...] units for every 40 >180 mg/dL) Insulin [place], Disposable, (BD ULTRA-FINE SANDRA PEN NEEDLE) 32 [...] 3 mg/actuation nasal spray (BAQSIMI) Use 1 [place] in the nose as needed for low [...] fluoxetine - Reviewed concept of neurochemical imbalance [facility] depression/anxiety, treatment options and benefits of counseling in combination with medication. Also reviewed benefits of sleep hygeine, diet and exercise - Follow-up in 6 weeks or sooner as needed - Instructed patient to contact office or jcret-we-wehz after-hours promptly should condition worsen or any new symptoms appear. - [facility] and after hours crisis line 3. Hypertension [...] plan. 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 APRN.CNP documented in this encounterMercy Health [facility] Hospital05-08-2024 Telephone encounter Note * Telephone Encounter - Kathrine Logan LPN - 01/15/2024 10:58 AM EDT Rec'd covermymeds PA for pantoprazole. Requested electronic PA and response is this is covered. No PA is needed. Pharmacy notified. [facility]05-08-2024 Miscellaneous Notes* Telephone Encounter - Kathrine Logan LPN - 01/15/2024 10:58 AM EDT Rec'd covermymeds PA for pantoprazole. Requested electronic PA and response is this is covered. No PA is needed. Pharmacy notified. documented in this encounterMercy Health [facility] Hospital05-08-2024 History of Present illness Narrative* Rosi [...] Provider. Tammie Gomez RN documented in this encounterMercy Health Kings [facility] Hospital05-06-2024 History of Present illness Narrative* Chyna Conroy PA-C - 01/13/2024 1:30 PM EDT [facility] [place] [facility] Follow up Portions of this note [...] x 2. Not compliant with labs/biopsies. Local [place] Operator: Dr. Montiel Lab Frequency: Monthly Home BP: [...] 1 Each as needed. For Intercavernal Injections yhtcqucjyl-nppkywrphumf-gtyvwwnwway 30 MG - 1 MG - 10 [...] units for every 40 >180 mg/dL) Insulin [place], Disposable, (BD ULTRA-FINE SANDRA PEN NEEDLE) 32 [...] 3 mg/actuation nasal spray (BAQSIMI) Use 1 [place] in the nose as needed for low [...] complexity. Chyna Conroy PA-C documented in this encounterMercy Health [facility] Hospital04-05-2024 Miscellaneous Notes* Telephone Encounter - Steve [...] you. Steve Mota MA. documented in this encounterMercy Health Kings [facility] Hospital03-20-2024 Miscellaneous Notes* Telephone Encounter - Conchis [...] advise. Conchis Sheets RN documented in this encounterMercy Health Kings [facility] Hospital03-19-2024 History of Present illness Narrative* Xiang ePrez PA-C - 11/26/2023 8:08 AM EDT CC: [...] does note he will be headed to [place] this Saturday. Denies any fevers/chills, body aches, or any other systemic symptoms. States that when he has half a sandwich from [employer] and it passes right through him. Has [...] type 2, goal HbA1c < 7% ([facility]) Erectile dysfunction, unspecified erectile dysfunction type ESRD (end stage renal disease) ([facility]) GERD (gastroesophageal reflux disease) Hyperlipidemia Kidney replaced [...] 1 Each as needed. For Intercavernal Injections ewibqeomzi-apsqplcduzwm-brcxhmaxbls 30 MG - 1 MG - 10 [...] units for every 40 >180 mg/dL) Insulin [place], Disposable, (BD ULTRA-FINE SANDRA PEN NEEDLE) 32 [...] 3 mg/actuation nasal spray (BAQSIMI) Use 1 [place] in the nose as needed for low [...] plan. Xiang Perez PA-C documented in this encounterMercy Health [facility]03-18-2024 Miscellaneous Notes* Telephone Encounter - Silvano [...] 13. : N/A Protocols used: Diarrhea on Czzgnrgbzzw-BIICF-MP documented in this encounterMercy Health Kings [facility] Hospital02-21-2024 Miscellaneous Notes* Telephone Encounter - Monik Chinchilla Ma - 10/30/2023 7:04 PM EST Form received and faxed as requested. * Telephone Encounter - Monik Chinchilla Ma - 10/30/2023 4:28 PM EST No forms received. * Telephone Encounter - Josseline Murphy RN - 10/30/2023 3:34 PM EST Mary from [facility]-DME provider (Dexcom G-6) calls and asking if provider received fax message requesting chart notes that was sent on 10/24. Asking if chart notes can be faxed to [phone]. Called and left message for patient to call back and speak with a triage nurse regarding this and if this was patient requested. Josseline Murphy RN documented in this encounterMercy Health [facility] Hospital02-20-2024 Miscellaneous Notes* Telephone Encounter - Chyna Mak RN - 10/29/2023 1:11 PM EST JORDY 08/20/2023 NOV none scheduled Patient requesting refills as follows: Requested Prescriptions Pending Prescriptions Disp Refills Insulin Syringe-Needle U-100 1 mL 29 gauge x 1/2 20 Each 3 Si Each as needed. For Intercavernal Injections Please review and advise. Chyna Mak RN documented in this encounterMercy Health Kings [facility] Hospital02-05-2024 Miscellaneous Notes* Telephone Encounter - Justine [...] you. Justine Boyle RN. documented in this encounterMercy Health Kings [facility] Hospital02-02-2024 Miscellaneous Notes* Telephone Encounter - Josseline Murphy RN - 10/11/2023 11:10 AM EST Patient calls and states that prescription was cancelled. Patient uses [facility] and not [facility]. [...] you. Josseline Murphy RN. documented in this encounterMercy Health Kings [facility] Hospital01-10-2024 History of Present illness Narrative* 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 APRN.SENIOR NET SOFTWARE DEVELOPER - 09/18/2023 2:48 PM EST CC: Patient [...] a year ago but has appointment with [facility] at the end of this month. HTN: [...] Chronic kidney failure, stage 4 (severe) ([facility]) 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 ([facility]) 12/16/2018 Depression Detached retina DM type 2, goal HbA1c < 7% ([facility]) Erectile dysfunction, unspecified erectile dysfunction type ESRD (end stage renal disease) [facility] [place] GERD (gastroesophageal reflux disease) Hyperlipidemia Kidney replaced [...] by mouth every Saturday, Saturday, and Saturday. mxmihebnvu-rnehoqohehow-vygsaajrhyh 15 MG - 0.5 MG - 5 [...] 2 tablets by mouth once daily. Insulin [place], Disposable, (BD ULTRA-FINE SANDRA PEN NEEDLE) 32 [...] 3 mg/actuation nasal spray (BAQSIMI) Use 1 [place] in the nose as needed for low [...] - Instructed patient to contact office or hskxn-wk-oxuc after-hours promptly should condition worsen or any new symptoms appear. - [facility] and after hours crisis line 5. LUANNE (obstructive sleep apnea) - ICD9: 327.23, ICD10: G47.33 Does not use cpap at this time, reports being asymptomatic Prescription instructions reviewed with patient as applicable. Potential red flag symptoms discussed with the patient. Reviewed appropriate action plan to take if red flag symptoms occur. Patient agreeable to treatment plan. 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 APRN.CNP documented in this encounterMercy Health Kings Mills Hospital12-21-2023 Miscellaneous Notes* Telephone Encounter - Monik Chinchilla Ma - 08/29/2023 7:14 AM EST Form faxed. * Telephone Encounter - 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 APRN.CNP - 08/29/2023 6:50 AM EST Form filled out. Please fax as requested. Thank you 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 APRN.CNP * Telephone Encounter - Xiang Wilson MA - 08/27/2023 9:21 AM EST Fax received from [employer] requesting renewal for CGM and supplies. Form partially completed and placed on Delia's desk for review. Once signed, please fax to [phone]. Xiang Wilson MA documented in this encounterMercy Health Kings Mills Hospital12-14-2023 Miscellaneous Notes* Telephone Encounter - Dona Kaiser RN - 08/22/2023 2:45 PM EST Called pt. Pt. States he used 20 units Rates it 5 out of 10 Not firm enough for penetration Lasted about 30 minutes Denies pain. documented in this encounterMercy Health Kings Mills Hospital12-12-2023 History of Present illness Narrative* Oscar Mas PA-C - 08/20/2023 4:17 PM EST Images from the original note were not included. Formerly [facility], [facility]1983 [facility] [place] UROLOGY INTRACAVERNOUS TEACHING APPOINTMENT Patient : Italo Burgos 1970 52 year old Diagnosis: (N52.9) Impotence of organic origin (primary encounter diagnosis) Medications: Current Outpatient Medications Medication Sig ecgynggmlw-ytmxlbwqbxjt-iqtbixycila 15 MG - 0.5 MG - 5 [...] 2 tablets by mouth once daily. Insulin [place], Disposable, (BD ULTRA-FINE SANDRA PEN NEEDLE) 32 [...] 3 mg/actuation nasal spray (BAQSIMI) Use 1 [place] in the nose as needed for low [...] POINTS: Survival Skills: History of Drug and arts administrator or manager effects reviewed with patient. yes Discussed with [...] [place] In Department: UROLOGY documented in this encounterMercy Health Kings Mills Hospital12-05-2023 History of Present illness Narrative* Oscar Mas PA-C - 08/13/2023 4:44 PM EST Images from the original note were not included. [facility] [...] teaching appointment I will send Rxs to [facility] and He will call to [...] 2 tablets by mouth once daily. Insulin [place], Disposable, (BD ULTRA-FINE SANDRA PEN NEEDLE) 32 [...] 3 mg/actuation nasal spray (BAQSIMI) Use 1 [place] in the nose as needed for low [...] Date Acute diastolic (congestive) heart failure ([facility]) Bronchitis Chronic kidney failure, stage 4 (severe) ([facility]) 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 ([facility]) 12/16/2018 Depression Detached retina DM type 2, goal HbA1c < 7% ([facility]) Erectile dysfunction, unspecified erectile dysfunction type ESRD (end stage renal disease) ([facility]) GERD (gastroesophageal reflux disease) Hyperlipidemia Kidney replaced [...] with Friends and Family: Patient refused Attends Faith Services: Patient refused Active Member of Clubs [...] Negative Negative Ketones, Urine Negative Negative Specific [place], Ur 1.024 1.005 - 1.030 Hemoglobin/Blood,Ur Negative [...] 4.00 k/uL Monocytes % 7.7 % Abs [place] 0.55 <0.87 k/uL Eosinophils % 0.6 % [...] min, > Rx sent for Bi-Mix to [facility] he will call and arrange payment and shipping > MUST bring medication for teaching appointment KECIA Larson, MT, ROMULO documented in this encounterMercy Health Kings Mills Hospital12-05-2023 Instructions* Patient Instructions* Oscar Mas PA-C - 08/13/2023 4:41 PM EST > Schedule patient for Penile Injection Teaching appt for 6 min slot Once made I need to know so I can order Medication to be sent at the time prior to his appointment KECIA Larson, MEGHAN, ROMULO documented in this encounterMercy Health Kings Mills Hospital11-11-2023 Miscellaneous Notes* Telephone Encounter - Lashae [...] advise. Lashae Perry RN documented in this encounterMercy Health Kings Mills Hospital11-06-2023 History of Present illness Narrative* Alana Kent APRN.SENIOR NET SOFTWARE DEVELOPER - 07/15/2023 2:18 PM EST Formerly [facility], [facility] [place] Transplant Follow up Portions of this note [...] mild. Arteriolar hyalinosis, focal. 1 yr: Local Briquette Operator: Dr. Montiel Lab Frequency: Monthly Home BP: [...] units for every 40 >180 mg/dL) Insulin [place], Disposable, (BD ULTRA-FINE SANDRA PEN NEEDLE) 32 [...] 3 mg/actuation nasal spray (BAQSIMI) Use 1 [place] in the nose as needed for low [...] decision making of high complexity. Alana Kent APRN.SENIOR NET SOFTWARE DEVELOPER documented in this encounterMercy Health Kings Mills Hospital10-23-2023 Miscellaneous Notes* Telephone Encounter - Shakira [...] you. Shakira Bianchi. * Telephone Encounter - Soldier Caren Valles - 07/01/2023 1:45 PM EDT [...] notify patient. Caren Valles documented in this encounterMercy Health Kings Mills Hospital09-12-2023 History of Present illness Narrative* Xiang [...] 35 mg/dL Total Cholesterol: 189 mg/dL Local spinner cap frame, 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 PAST MEDICAL HISTORY Diagnosis Date Acute diastolic (congestive) heart failure (HCC) Bronchitis Chronic kidney failure, stage 4 (severe) (HCC) 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 ([facility]) 12/16/2018 Depression Detached retina DM type 2, [...] tablet by mouth q 24 HR. Insulin [place], Disposable, (BD ULTRA-FINE SANDRA PEN NEEDLE) 32 [...] 3 mg/actuation nasal spray (BAQSIMI) Use 1 [place] in the nose as needed for low [...] plan. Xiang Perez PA-C documented in this encounterMercy Health Kings Mills Hospital08-02-2023 Miscellaneous Notes* Result Encounter Note - Olivia Maxwell APRN.SENIOR NET SOFTWARE DEVELOPER - 04/10/2023 1:11 PM EDT Xiang, patient has an appointment 05/28 with you, ultrasound looks stable, no DVT, no other issues. Wanted to pass along to you for review with the appointment. documented in this encounterMercy Health Kings Mills Hospital07-26-2023 Miscellaneous Notes* Telephone Encounter - Svetlana Manjarrez MD - 04/03/2023 2:07 PM EDT Will get RX with more refills at follow up appointment with Xiang in May * Telephone Encounter - Allyssa Camacho - 04/03/2023 12:11 PM EDT Pharmacy verified in [facility] Patient has been identified by name and [...] Please advise. Allyssa Valles documented in this encounterMercy Health Kings Mills Hospital07-06-2023 History of Present illness Narrative* Lg Link MD - 03/14/2023 6:51 AM EDT patient at outside ED, low blood glucose, SCr elevated 1.9 mg/dl, similar to previous, will repeat labs, allogen and cell free dna, may need bx, keep clinic f/u 04/10/23 Lg Link MD documented in this encounterMercy Health Kings Mills Hospital07-06-2023 Discharge summary Author Loi Saldana [facility] March 14, 2023 7:08am Note Date/Time March 13, 2023 10:40 pm [facility] Medical Records Department [address] [place] [address] Emergency Department Summary 03/13/23 MR#: [id number] Acct: [id number] Name: ITALO BURGOS Rep #:[id number] : 1970 52 From: Loi Les CALIRE PCP: Dr. Zaida Gaston MD Status:REG E [...] than some generalized weakness. He states his spinner cap frame is Dr. Montiel. He states that he been eatingand drinking normally. Making normal urine and stool and has not had any issues. He states he ate a hotdog macaroni and cheese for dinner. 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 [...] have some special lab work done at [facility] on Saturday that has to be done there because it specialized in the only place where they can do it. After this he can get his blood work drawn at any [facility] facility for the next 4 [...] % (Auto) 67.1 Lymph % (Auto) 22.5 [place] % (Auto) 9.0 Eos % (Auto) 0.8 [...] Clarity Clear Urine pH 5.0 Ur Specific Crane 1.020 Urine Protein 30 H Urine Glucose [...] (Auto) Neut % (Auto) Lymph % (Auto) [place] % (Auto) Eos % (Auto) Baso % [...] Color Urine Clarity Urine pH Ur Specific [place] Urine Protein Urine Glucose (UA) Urine Ketones [...] (Auto) Neut % (Auto) Lymph % (Auto) [place] % (Auto) Eos % (Auto) Baso % [...] Color Urine Clarity Urine pH Ur Specific [place] Urine Protein Urine Glucose (UA) Urine Ketones [...] (Auto) Neut % (Auto) Lymph % (Auto) [place] % (Auto) Eos % (Auto) Baso % [...] Color Urine Clarity Urine pH Ur Specific [place]ane Urine Protein Urine Glucose (UA) Urine Ketones [...] your Primary Care Provider. Call [facility] ([phone]) or report to the closest Emergency Room. Call 911 if necessary. 03/14/23 0708 <Electronically signed by Loi Saldana DO> Cosigner Signature (if applicable): CC: Dr. Zaida Gaston MD ~ Signed [facility] Work Phone: 1(448) 600-346206-19-2023 History of Present illness Narrative* Zaida Gaston [...] (VITAMIN D3) 1,000 unit tab tablet Insulin [place], Disposable, (BD ULTRA-FINE SANDRA PEN NEEDLE) 32 [...] times. Zaida Gaston MD documented in this encounterMercy Health Kings Mills Hospital05-10-2023 Miscellaneous Notes* Telephone Encounter - Danni Barnes RN - 01/16/2023 5:07 PM EDT Called patient to confirm renal bx. Patient unable to make appointment d/t no ride. Asked us to reschedule. Message sent to [facility]. Danni Barnes RN documented in this encounterMercy Health Kings Mills Hospital04-26-2023 Miscellaneous Notes* Telephone Encounter - Juvencio Haji RN - 01/02/2023 2:33 PM EDT Call placed to patient RE repeat labwork. Informed that creatinine is down to 2.16 from 2.8, but glucose is 392. Confirmed labwork is fasting. Encouraged patient to continue hydrating well and to contact local Dental Services Director for management. States saw provider last month. During encounter, blood glucose reading 192. A1c from 10/13/22 at 8.6. Patient recently recovered from diabetic foot wound requiring wound clinic. All questions answered. Informed patient will follow up results of AlloSure and DSA. Patient stated understanding. All questions answered. Juvencio Haji RN documented in this encounterMercy Health Kings Mills Hospital04-21-2023 History of Present illness Narrative* Chelsea Ryan MD - 12/28/2022 10:07 AM EDT Formerly [facility], [facility] [place] Transplant Follow up Portions of this note [...] mild. Arteriolar hyalinosis, focal. 1 yr: Local Briquette Operator: Dr. Montiel Lab Frequency: Monthly Home BP: 130-140/70-80 New Complaints: 1 year, 9 month visit No compliants Just got back form trip to [place] 3 weeks ago (out of town x [...] tablet by mouth q 24 HR. Insulin [place], Disposable, (BD ULTRA-FINE SANDRA PEN NEEDLE) 32 [...] 3 mg/actuation nasal spray (BAQSIMI) Use 1 [place] in the nose as needed for low [...] 4 days for left toe amputation at [facility] Working for income: No; Karnofsky Index Scale: 80 - Normal activity with effort: some signs or symptoms of disease. Newly Diabetic: No Rejection: No Malignancies: No Conchis Sheets, campus recruiting coordinator Staff Note: December 31, 2022 4:29 PM I have seen the patient and confirmed the historical findings as outlined above. Pt returns for routine follow up visit, last office follow up on 09/24/22 In the interim, treated by local fish housekeeper in [facility] for diabetic foot infection- completed abx per [...] complexity. Chelsea Ryan MD documented in this encounterMercy Health Kings Mills Hospital03-17-2023 History of Present illness Narrative* Zaida [...] (VITAMIN D3) 1,000 unit tab tablet Insulin [place], Disposable, (BD ULTRA-FINE SANDRA PEN NEEDLE) 32 [...] <130/80 Zaida Gaston MD documented in this encounterMercy Health Kings Mills Hospital03-16-2023 History of Present illness Narrative* Verna Jensen, [facility] - 11/22/2022 1:00 PM EDT Images from the original note were not included. Primary Care Pharmacy Visit CC (Reason for Consult): Diabetes Goal: A1c < 7% Collaborating Provider: Dr. Gaston Last Provider Visit: 08/25/22 Italo Burgos is a 51 year old male presenting for follow up visit in person. [facility]. Patient is [...] On 09/24 patient saw endo pharmacist at [facility] [place]. No med changes made since minimal SMBGs to review but patient encouraged to discuss GLP1 with leaf coverer. At last PharmD visit on 10/04, no med changes made since patient recently started working with endo. Subjective: HPI: Said he saw leaf coverer recently. He reports his sugars were looking [...] not present Adherence: denies missed doses Pharmacy: [facility]; [place] is alternative Rx coverage: [facility] Medicare + Medicaid Affordability: no issues Diabetes supplies: One Touch [employer] System: pill boxes ACTIVE PROBLEM LIST Uncontrolled Type 2 Diabetes Mellitus With Complication, With Long-Term Current Use of Insulin Hypertension Goal Bp (Blood Pressure) < 140/90 Other Hyperlipidemia Ed (Erectile Dysfunction) Lower Urinary Tract Symptoms (Luts) History of Kidney Stones Microscopic Hematuria Diabetic Polyneuropathy Associated With Type 2 Diabetes Mellitus ([facility]) Nausea Vomiting Moderate Episode of Recurrent Major Depressive Disorder ([facility]) Right Leg Weakness Gait Instability Ckd (Chronic Kidney Disease) Requiring Chronic Dialysis ([facility]) Kidney Transplant Recipient Type 1 Diabetes Mellitus On Insulin Therapy ([facility]) PAST MEDICAL HISTORY Diagnosis Date Acute diastolic (congestive) heart failure ([facility]) Bronchitis Chronic kidney failure, stage 4 (severe) ([facility]) Depression Detached retina DM type 2, goal HbA1c < 7% ([facility]) ESRD (end stage renal disease) ([facility]) GERD (gastroesophageal reflux disease) Hyperlipidemia Kidney stones [...] (BLOOD GLUCOSE TEST) test strip One Touch Allihub preferred - Kit - Dx E11.8 Insulin Dependent, Test blood sugar three times a day Blood-Glucose Meter monitoring kit Glucose Meter of Choice, One Touch Clipsureio preferred - Kit - Dx E11.8 Insulin [...] 3 mg/actuation nasal spray (BAQSIMI) Use 1 [place] in the nose as needed for low [...] units for every 40 >180 mg/dL) Insulin [place], Disposable, (BD ULTRA-FINE SANDRA PEN NEEDLE) 32 [...] management, patient is being actively managed by [facility] with frequent appointments so there is [...] verbalized understanding of instructions. Verna Jensen PharmD, [facility] Primary Care Clinical Pharmacist The majority of the pharmacy visit (> 50%) was spent counseling and/or coordinating care for thepatient. interaction: face to face time was 26 minutes. documented in this encounterMercy Health Kings Mills Hospital03-16-2023 Instructions* Patient Instructions* Verna Jensen RPh - 11/22/2022 1:00 PM EDT Start reviewing nutrition labels. Try to limit your total number of carbohydrates per meal to 30-45grams (2-3 servings). Start learning which foods have a lot of carbs, protein, etc. This will help you to make better selections for food choices. documented in this encounterMercy Health Kings Mills Hospital02-27-[address] Nava [facility] November 05, 2022 2:22pm Note Date/Time November 05, 2022 2:22pm [facility] Medical Records Department [address] [place] [address] Progress Note - Infect Disease 11/05/22 1419 MR#: [id number] Acct: [id number] Name: ITALO BURGOS Rep #:[id number] : 1970 51 From: Satish cochran MD PCP: Dr. Zaida Gaston MD Status:ADM I N Location: MD3 CG491-5 Physical Exam Narrative Feeling well, wants to [...] Cosigner Signature (if applicable): CC: ~ Signed [facility] Work Phone: 1(111) 408-614402-27-[address] Santiago [facility] November 05, 2022 1:42pm Note Date/Time November 01, 2022 10:16am [facility] Medical Records Department [address] [place] [address] Emergency Department Summary 11/01/22 MR#: [id number] Acct: [id number] Name: ITALO BURGOS Rep #:[id number] : 1970 51 From: Chuy Santiago MD PCP: Dr. Zaida Gaston MD Status:ADM I N Location: MD3 MB772-6 HPI History of Present Illness Chief Complaint: Cellulitis Detail of Chief Complaint: Cellulitis and infected third and fourth left toe Informant: patient, spouse/S.O. and other (Dr. Levy, fish housekeeper) Onset/Context/Timing Onset: Days (Patient states he noted [...] presently chews. He does not smoke cigarettes. 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 There is a left axis. MT intervals 196 ms. QRS durations 106 ms. 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 Call [facility] ([phone]) or report to the closest Emergency Room. Call 911 if necessary. 11/05/22 1342 <Electronically signed by Chuy Santiago MD> Cosigner Signature (if applicable): CC: Dr. Zaida Gaston MD ~ Signed [facility] Work Phone: 1(424) 251-734802-26-[address] Jara [facility] November 04, 2022 3:37pm Note Date/Time November 04, 2022 2:46pm [facility] Medical Records Department [facility] [facility] [place] [address] Pharmacokinetic/Renal -Consult 11/04/22 1446 MR#: [id number] Acct: [id number] Name: ITALO BURGOS Rep #:[id number] : 1970 51 From: Oscar Jorge [facility] PCP: Dr. Zaida Gaston MD Status:ADM I N Y Location: [place] [address] Consult Pharmacy has been consulted to manage [...] Culture - Preliminary Staphylococcus epidermidis GNR lactose lpn instructor 11/01/22 14:13 Amputation - Toe Anaerobic Culture [...] 11/04/22 1446 <Electronically signed by Oscar Mckeon [facility]> Date _ Oscar Bee [facility] 11/04/22 1537 <Electronically signed by Shruti schaefer MD> Cosigner Signature (if applicable): Date Shruti Jara MD CC: ~ Signed [facility] Work Phone: 1(535) 113-320302-26-[address] Jara [facility] November 04, 2022 3:37pm Note Date/Time November 04, 2022 1:50pm [facility] Medical Records Department [address] [place] [address] Progress Note 11/04/22 1346 MR#: [id number] Acct: [id number] Name: ITALO BURGOS Rep #:[id number] : 1970 51 From: Shruti Jara MD PCP: Dr. Zaida Gaston MD Status:ADM I N Location: [place] [address] Subjective Subjective Patient seen and examined. He [...] % (Auto) 61.4, Lymph % (Auto) 26.5, [place] % (Auto) 10.5 H, Eos % (Auto) [...] Culture - Preliminary Staphylococcus epidermidis GNR lactose lpn instructor 11/01/22 14:13 Amputation - Toe Anaerobic Culture [...] Total time spent seeing patient and examining ohre-sk-toml, review of chart, reviewing specialist notes, discussion of plan of care with patient and ancillary staff as well as documentation in EMR: 33 minutes. Charges/Coding Visit Charges Inpatient E&M: 73899 Subs Hosp L2 11/04/22 1537 <Electronically signed by Shruti Jara MD> Shruti Jara MD Cosigner Signature (if applicable): CC: ~ Signed [facility] Work Phone: 1(429) 981-495302-26-[address] Niño [facility] November 04, 2022 9:00am Note Date/Time November 04, 2022 9:00am [facility] Medical Records Department [address] [place] [address] Progress Note 11/04/22 0859 MR#: [id number] Acct: [id number] Name: ITALO BURGOS Rep #:[id number] : 1970 51 From: Gerhard Niño DPM PCP: Dr. Zaida Gaston MD Status:ADM I N Location: [place] [address]-1 Subjective Subjective Patient was seen this morning. [...] 71.4 H, Lymph % (Auto) 18.4 L, [place] % (Auto) 9.0, Eos % (Auto) 0.8, [...] % (Auto) 61.4, Lymph % (Auto) 26.5, [place] % (Auto) 10.5 H, Eos % (Auto) 0.8, Baso % (Auto) 0.5, Absolute Neuts (auto)3.8, Absolute Lymphs (auto) 1.64, Nucleated RBC % 0 Micro: Microbiology 11/01/22 14:13 Amputation - Toe Gram Stain - Final 11/01/22 14:13 Amputation - Toe Wound Culture - Preliminary Staphylococcus epidermidis GNR lactose lpn instructor 11/01/22 14:40 Incision/Surgical Site Gram Stain - [...] Benavides Signature (if applicable): CC: ~ Signed [facility] Work Phone: 1(320) 388-423702-26-[address] Jara [facility] November 04, 2022 7:27am Note Date/Time November 03, 2022 1:31pm [facility] Medical Records Department [address] [place] [address] Progress Note - Hospitalist 11/03/22 1320 MR#: [id number] Acct: [id number] Name: ITALO BURGOS Rep #:[id number] : 1970 51 From: Shruti Jara MD PCP: Dr. Zaida Gaston MD Status:ADM I N Location: [place] [address] Reason for Visit Reason for Visit: Diagnoses [...] 71.4 H, Lymph % (Auto) 18.4 L, [place] % (Auto) 9.0, Eos % (Auto) 0.8, [...] Culture - Preliminary Staphylococcus species GNR lactose lpn instructor 11/01/22 14:40 Incision/Surgical Site Gram Stain - [...] Total time spent seeing patient and examining rnnr-ss-sfrm, review of chart, reviewing specialist notes, discussion of plan of care with patient and ancillary staff as well as documentation in EMR: 35 minutes. Charges/Coding Visit Charges Inpatient E&M: 86198 Subs Hosp L2 11/04/2227 <Electronically signed by Shruti Jara MD> Cosigner Signature (if applicable): CC: ~ Signed [facility] Work Phone: 1(493) 730-574302-26-2023 Consult note Author Aj Costello [facility] November 04, 2022 12:41am Note Date/Time November 04, 2022 12:41am [facility] Medical Records Department [address] [place] [address] Pharmacokinetic/Renal -Consult 11/04/22 0040 MR#: [id number] Acct: [id number] Name: ITALO BURGOS Rep #:[id number] : 1970 51 From: Aj Fields od PCP: Dr. Zaida Gaston MD Status:ADM I N Y Location: [place] [address] Consult Pharmacy has been consulted to manage [...] Culture - Preliminary Staphylococcus species GNR lactose lpn instructor 11/01/22 14:13 Amputation - Toe Anaerobic Culture [...] on [date and time ordered]: 11/04 @ 6170 11/04/22 0041 <Electronically signed by Aj matthews > Date _ Aj Benavides Signature (if applicable): Date CC: ~ Signed [facility] Work Phone: [phone]) 781-417002-25-[address] Niño [facility] November 03, 2022 9:22am Note Date/Time November 03, 2022 8:56am [facility] Medical Records Department [address] [place] [address] Progress Note 11/03/22 0856 MR#: [id number] Acct: [id number] Name: ITALO BURGOS Rep #:[id number] : 1970 51 From: Gerhard Niño DPM PCP: Dr. Zaida Gaston MD Status:ADM I N Location: [address] Subjective Subjective Patient was seen this [...] Clarity Clear, Urine pH 6.0, Ur Specific Crane 1.030, Urine Protein Negative, Urine Glucose (UA) [...] Culture - Preliminary Staphylococcus species GNR lactose lpn instructor 11/01/22 14:40 Incision/Surgical Site Gram Stain - [...] Signature (if applicable): Date cc: ~* Signed [facility] Work Phone: [phone]) 252-480202-24-[address] [facility] November 02, 2022 4:56pm Note Date/Time November 01, 2022 11:04[facility] Records Department [address] [place] [address] Progress Note - Hospitalist 11/01/22 1104 MR#: [id number] Acct: [id number] Name: BURGOSITALO FONG Mery Rep #:[id number] : 1970 51 From: Shruti Jara MD PCP: Dr. Zaida Gaston MD Status:ADM I N Location: [place] [address] Reason for Visit Reason for Visit: Diagnoses [...] otherwise negative Vitals in the ED were MT of 81, RR of 16 and oxygen [...] % (Auto) 67.5, Lymph % (Auto) 21.1, [place]% (Auto) 9.7, Eos % (Auto) 0.9, Baso [...] Total time spent seeing patient and examining bwpb-ou-oykk, review of chart, reviewing specialist notes, discussion of plan of care with patient and ancillary staff as well as documentation in EMR: 45 minutes. Charges/Coding Visit Charges Inpatient E&M: 27575 Subs Hosp L3 11/02/22 2700 <Electronically signed by Shruti Jara MD> Cosigner Signature (if applicable): CC: ~ Signed [facility] Work Phone: 1(684) 240-446002-24-[address] Jara [facility] November 02, 2022 4:56pm Note Date/Time November 02, 2022 12:46pm [facility] Medical Records Department [address] [place] [address] Progress Note - Hospitalist 11/02/22 1245 MR#: [id number] Acct: [id number] Name: ITALO BURGOS Rep #:[id number] : 1970 51 From: Shruti Jara MD PCP: Dr. Zaida Gaston MD Status:ADM I N Location: [place] [address] Reason for Visit Reason for Visit: Diagnoses [...] Clarity Clear, Urine pH 6.0, Ur Specific Crane 1.030, Urine Protein Negative, Urine Glucose (UA) [...] 82.7 H, Lymph % (Auto) 9.3 L, [place] %(Auto) 7.5, Eos % (Auto) 0.0, Baso [...] Total time spent seeing patient and examining ghqe-uj-argk, review of chart, reviewing specialist notes, discussion of plan of care with patient and ancillary staff as well as documentation in EMR: 40 minutes. Charges/Coding Visit Charges Inpatient E&M: 78829 Subs Hosp L2 11/02/22 1656 <Electronically signed by Shruti Jara MD> Cosigner Signature (if applicable): CC: ~ Signed [facility] Work Phone: [phone]) [phone] Nava [facility] November 02, 2022 11:56am Note Date/Time November 02, 2022 11:56am [facility] Medical Records Department [address] [place] [address] Consultation - Infectious Dx 11/02/22 1149 MR#: [id number] Acct: [id number] Name: LORETTAITALO D Rep #:[id number] : 1970 51 From: Satish cochran MD PCP: Dr. Zaida Gaston MD Status:ADM I N Location: [place] [address] Assessment & Plan Assessment/Plan (1) Osteomyelitis of [...] performed and neg except as noted above. 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 Amy Ureña MD; Dr. Zaida Gaston MD; Dr. William Hayes DO; Dr. Kendra MD; Dr. Awa Martínez MD; Dr. Satish Nava MD~ Signed [facility] Work Phone: [phone]) 410-988802-24-2023 Consult note Author Valentín Evans [facility] November 02, 2022 9:14am Note Date/Time November 02, 2022 9:12am [facility] Medical Records Department [address] [address] Pharmacokinetic/Renal -Consult 11/02/22 09 MR#: [id number] Acct: [id number] Name: ITALO BURGOS Rep #:[id number] : 1970 51 From: Valentín mora PCP: Dr. Zaida Gaston MD Status:ADM I N Y Location: [place] [address] Consult Pharmacy has been consulted to manage [...] Signature (if applicable): Date CC: ~ Signed [facility] Work Phone: [phone]) 887-353502-24-[address] Niño [facility] November 02, 2022 7:15am Note Date/Time November 02, 2022 6:55am [facility] Medical Records Department [address] [place] [address] Progress Note 11/02/2254 MR#: [id number] Acct: [id number] Name: ITALO BURGOS Rep #:[id number] : 1970 51 From: Gerhard Niño DPM PCP: Dr. Zaida Gaston MD Status:ADM I N Location: [place] [address] Subjective Subjective Patient was seen this morning for follow up on PENDING SALE TO [facility]. Patient afebrile, WBC normal. Bld Cx with [...] % (Auto) 67.5, Lymph % (Auto) 21.1, [place]% (Auto) 9.7, Eos % (Auto) 0.9, Baso [...] 82.7 H, Lymph % (Auto) 9.3 L, [place] %(Auto) 7.5, Eos % (Auto) 0.0, Baso [...] Cosigner Signature (if applicable): CC: ~ Signed [facility] Work Phone: [phone]) 446-625402-24-[address] Smith [facility] November 02, 2022 6:29am Note Date/Time November 02, 2022 6:29am [facility] Medical Records Department [address] [place] [address] Progress Note - Hospitalist 11/02/22628 MR#: [id number] Acct: [id number] Name: ITALO BURGOS Rep #:[id number] : 1970 51 From: Isamar Smith MD PCP: Dr. Zaida Gaston MD Status:ADM I N Location: [place] [address] Hospitalist Note Bld Cx with GPC in clusters. Will start IV Vancomycin. 11/02/22628 <Electronically signed by Isamar Smith MD> Cosigner Signature (if applicable): CC: ~ Signed [facility] Work Phone: [phone]) [phone] Procedure [facility] 11-01-2022 History and physical note Author Dr. Levy [facility] November 01, 2022 10:43am Note Date/Time November 01, 2022 10:42am [facility] Medical Records Department [address] [place] [address] History & Physical Exam 11/01/22 1041 MR#: [id number] Acct: [id number] Name: ITALO BURGOS Rep #:[id number] : 1970 51 From: Mayo Levy DPM PCP: Dr. Zaida Gaston MD Status:REG S DC Location: [place] [address] HPI - General General Date of Admission: [...] to transmetatarsal amputation today.? No other complaints. 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 Zaida Gaston MD~ Signed [facility] Work Phone: [phone]) [phone] Levy [facility] November 01, 2022 10:17am Note Date/Time November 01, 2022 10:16am [facility] Medical Records Department [address] [place] [address] Consultation 11/01/22 1007 MR#: [id number] Acct: [id number] Name: ITALO BURGOS Rep #:[id number] : 1970 51 From: Mayo Levy DPM [...] to transmetatarsal amputation today. No other complaints. 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 Zaida Gaston MD~ Signed [facility] Work Phone: [phone]) [phone] History of Present illness Narrative* Verna Jensen, [facility] - 10/04/2022 1:00 PM EST Images from the original note were not included. Primary Care Pharmacy Visit CC (Reason for Consult): Diabetes Goal: A1c < 7% Collaborating Provider: Dr. Gaston Last Provider Visit: 08/25/22 Italo Burgos is a 51 year old male presenting for follow up visit in person. Patient consents [facility] practice agreement. Patient is presenting today [...] On 09/24 patient saw endo pharmacist at [facility] [place]. No medchanges made since minimal SMBGs to review but patient encouraged to discuss GLP1 with leaf coverer. Subjective: HPI: He really likes the Dexcom, [...] units with snack. He really liked the leaf coverer, seeing again in October. Current DM Medications: [...] not present Adherence: denies missed doses Pharmacy: [facility]; Kiya is alternative Rx coverage: [facility] Medicare + Medicaid Affordability: no issues Diabetes supplies: [employer] System: pill boxes ACTIVE PROBLEM LIST [...] Ckd (Chronic Kidney Disease) Requiring Chronic Dialysis ([facility]) Kidney Transplant Recipient Type 1 Diabetes Mellitus On Insulin Therapy ([facility]) PAST MEDICAL HISTORY Diagnosis Date Acute diastolic (congestive) heart failure ([facility]) Bronchitis Chronic kidney failure, stage 4 (severe) ([facility]) Depression Detached retina DM type 2, goal HbA1c < 7% ([facility]) ESRD (end stage renal disease) ([facility]) GERD (gastroesophageal reflux disease) Hyperlipidemia Kidney stones [...] sugar diagnostic (BLOOD GLUCOSE TEST) test strip [employer] preferred - Kit - Dx E11.8 Insulin [...] 3 mg/actuation nasal spray (BAQSIMI) Use 1 [place] in the nose as needed for low [...] SCALE (MAX 50 UNITS PER DAY) Insulin [place], Disposable, (BD ULTRA-FINE SANDRA PEN NEEDLE) 32 [...] next month CONTINUE insulin as recommended by leaf coverer Advised patient to discuss the following things [...] verbalized understanding of instructions. Verna Jensen PharmD, [facility] Primary Care Clinical Pharmacist The majority of the pharmacy visit (> 50%) was spent counseling and/or coordinating care for thepatient. interaction: face to face time was 30 minutes. documented in this encounterMer[facility]01-26-2023 Instructions* Patient Instructions* Verna Jensen RPh - 10/04/2022 1:00 PM EST Consider whether or not you would be open to doing carb counting. Can discuss with leaf coverer at upcoming appointment. Confirm with leaf coverer if you have Type 1 vs Type 2 diabetes. Discuss with leaf coverer his thoughts on starting a GLP1 receptor agonist. Bring Dexcom to your leaf coverer appointment. documented in this encounterMercy [facility]01-19-2023 Progress note Author Dona Medina [facility] September 27, 2022 9:55am Note Date/Time September 27, 2022 8 :24am [facility] [address] [place] [address] Progress Note - Wound Care 09/27/22 0824 MR#: [id number] Acct: [id number] Name: ITALO BURGOS Rep #:[id number] : 1970 51 From: Dona adams DPM [...] Recorded Date Recorded By Document 09/13/22 07:59 [id number] 09/13/22 08:01 Document 09/20/22 08:07 [id number] 09/20/22 08:08 Document 09/27/22 08:03 CARLINE [id number] 09/27/22 08:04 09/13/22 09/20/22 09/27/22 07:59 08:07 08:03 - Today's Visit Information Type of service Follow-up Visit Follow-up Visit Follow-up Visit (Physician/SENIOR NET SOFTWARE DEVELOPER (Physician/SENIOR NET SOFTWARE DEVELOPER (Physician/SENIOR NET SOFTWARE DEVELOPER ) ) ) Arrival Mode Ambulatory, Ambulatory [...] Date Recorded By Document 09/13/22 07:59 CARLINE [id number] 09/13/22 08:01 JF Document 09/20/22 08:07 KR [id number] 09/20/22 08:08 KR Document 09/27/22 08:03 CARLINE [id number] 09/27/22 08:04 CARLINE 09/13/22 09/20/22 09/27/22 07:59 [...] Date Recorded By Document 09/13/22 09:09 PL [id number] 09/13/22 09:11 PL Document 09/20/22 12:00 PL [id number] 09/20/22 12:00 PL 09/13/22 09/20/22 09:09 12:00 [...] Disc -Expiration Date 05/10/27 -Product Lot Number [id number] -Percent Used 100 -Bleeding Controlled with [...] Recorded Date Recorded By Document 09/13/22 08:51 RI [id number] 09/13/22 08:51 RI Document 09/20/22 09:32 [id number] 09/20/22 09:32 KR 09/13/22 09/20/22 08:51 09:32 [...] was encouraged to continue routine follow-ups with leaf coverer sothat he may get his blood sugars [...] next visit he is to return to [facility]'s wet-to-dry dressings.? He voices understanding of that. [...] continued localized woundcare and close monitoring. Note: [employer] speech recognition firebrick layer software was used to create portions of this document. Sound-alike and misspelled words, as well as other firebrick layer errors may be contained in the documentation 09/27/22 0955 <Electronically signed by Dona Medina DPM> Cosigner Signature (if applicable): CC: ~ Signed [facility] Work Phone: 1(367) 690-672001-16-2023 History of Present illness Narrative* Felicita Salomonaacs, [facility] - 09/24/2022 10:58 AM EST Patient seen [...] by PCP for his diabetes. Goes to leaf coverer in [place]. His had bariatric, down to 218lbs. Using [...] SMBG: Wearing dexcom, however unable to download rock wool insulator. Current glucose is 273. Last a1c was elevated A/P: No adjustments today as we have only 1 day of data and pt now has established care with local endo.Recommend to discuss w/ endo about using a glp-1 agonist. F/up: PRN. Diabetes Care Team Hospital Discharge Help Line: [phone] Felicita Cameron, PharmD, BCPS, BCACP BC-ADM, CDCES Endocrine Clinical Air Conditioning Engineer documented in this encounterMercy [facility]01-16-2023 Instructions* Patient Instructions* Felicita Cameron RPh - 09/24/2022 10:58 AM EST Talk to your leaf coverer about starting a glp-1 agonist. Examples include semaglutide (Ozempic)or dulaglutide (Trulicity). This may allow you to reduce or even eventually stop your meal time insulin. documented in this encounterMercy [facility]01-16-2023 History of Present illness Narrative* Alana Kent, PATRICIA.SENIOR NET SOFTWARE DEVELOPER - 09/24/2022 10:45 AM EST [facility]ly [facility], [facility]1983 [facility] [place] Transplant Follow up Portions of this note [...] mild. Arteriolar hyalinosis, focal. 1 yr: Local [place] Operator: Dr. Montiel Lab Frequency: Monthly Home BP: [...] Inject 44 Units subcutaneously every morning. Insulin [place], Disposable, (BD ULTRA-FINE SANDRA PEN NEEDLE) 32 [...] 3 mg/actuation nasal spray (BAQSIMI) Use 1 [place] in the nose as needed for low [...] Inject 44 Units subcutaneously every morning. Insulin [place], Disposable, (BD ULTRA-FINE SANDRA PEN NEEDLE) 32 [...] 3 mg/actuation nasal spray (BAQSIMI) Use 1 [place] in the nose as needed for low [...] complexity. Alana Kent APRN.ANDRE documented in this encounterMercy Health [facility]01-12-2023 Progress note Author Dona Medina [facility] September 20, 2022 9:39am Note Date/Time September 20, 2022 9 :18am [facility] [address] [place] [address] Progress Note - Wound Care 09/20/2217 MR#: [id number] Acct: [id number] Name: ITALO BURGOS Rep #:[id number] : 1970 51 From: Dona adams DPM [...] Recorded Date Recorded By Document 09/13/22 07:59 [id number] 09/13/22 08:01 Document 09/20/22 08:07 JOE [id number] 09/20/22 08:08 JOE 09/13/22 09/20/22 07:59 08:07 - Today's Visit Information Type of service Follow-up Visit Follow-up Visit (Physician/SENIOR NET SOFTWARE DEVELOPER (Physician/SENIOR NET SOFTWARE DEVELOPER ) ) Arrival Mode Ambulatory, Ambulatory Walker [...] Date Recorded By Document 09/13/22 07:59 CARLINE [id number] 09/13/22 08:01 JF Document 09/20/22 08:07 KR [id number] 09/20/22 08:08 KR 09/13/22 09/20/22 07:59 08:07 [...] Date Recorded By Document 09/13/22 09:09 PL [id number] 09/13/22 09:11 PL 09/13/22 09:09 Wound Center [...] Disc -Expiration Date 05/10/27 -Product Lot Number [id number] -Percent Used 100 -Bleeding Controlled with [...] Date Recorded By Document 09/13/22 08:51 AK [id number] 09/13/22 08:51 AK 09/13/22 08:51 Wound Care [...] was encouraged to continue routine follow-ups with leaf coverer sothat he may get his blood sugars [...] localized wound care and close monitoring. Note: Airstone speech recognition firebrick layer software was used to create portions of this document. Sound-alike and misspelled words, as well as other firebrick layer errors may be contained in the documentation 09/20/22 0939 <Electronically signed by Dona Medina DPM> Cosigner Signature (if applicable): CC: ~ Signed [facility] Work Phone: 1(238) 512-915101-05-2023 Progress note Author Dona Medina [facility] September 13, 2022 9:22am Note Date/Time September 13, 2022 8: 25am [facility] [address] [place] [address] Progress Note - Wound Care 09/13/22 0823 MR#: [id number] Acct: [id number] Name: LORETTAITALO D Rep #:[id number] : 1970 51 From: Dona adams DPM [...] or yesterday.? Hewas recently evaluated by his leaf coverer and has had improvement in lowering his [...] Date Recorded By Document 09/13/22 07:59 CARLINE [id number] 09/13/22 08:01 CARLINE 09/13/22 07:59 WC - Today's Visit Information Type of service Follow-up Visit (Physician/SENIOR NET SOFTWARE DEVELOPER ) Arrival Mode Ambulatory, Walker Patient Requires [...] Date Recorded By Document 09/13/22 07:59 CARLINE [id number] 09/13/22 08:01 CARLINE 09/13/22 07:59 Wound Center [...] was encouraged to continue routine follow-ups with leaf coverer sothat he may get his blood sugars [...] localized wound care and close monitoring. Note: Airstone speech recognition firebrick layer software was used to create portions of this document. Sound-alike and misspelled words, as well as other firebrick layer errors may be contained in the documentation 09/13/22 0922 <Electronically signed by Dona Medina DPM> Cosigner Signature (if applicable): CC: ~ Signed [facility] Work Phone: 1(702) 537-530001-03-2023 Progress note Author Jennajeronimo Bedoya [facility] September 11, 2022 9:55am Note Date/Time September 11, 2022 8: 18am [facility] [address] [place] [address] Progress Note - Wound Care HBO 09/11/22 0817 MR#: [id number] Acct: [id number] Name: ITALO BURGOS Rep #:[id number] : 1970 51 From: Jenna cochran NP RATE AND COST ANALYST-C PCP: Dr. Zaida Gaston MD Status:PRE R [...] 0955 <Electronically signed by Jenna Bedoya NP RATE AND COST ANALYST-C> Cosigner Signature (if applicable): CC: ~ Signed [facility] Work Phone: 1(364) 958-384012-17-2022 History of Present illness Narrative* Zaida Gaston [...] U-100 INSULIN) 100 unit/mL (3 mL) Insulin [place], Disposable, (BD ULTRA-FINE SANDRA PEN NEEDLE) 32 [...] same Zaida Gaston MD documented in this encounterMercy Health [facility]12-15-2022 Miscellaneous Notes* Telephone Encounter - Verna Jensen RPh - 08/23/2022 4:25 PM EST Rachel submitted paperwork through [employer] to order the Dexcom G6 CGM system for patient. Applied through [employer]. Verna Jensen PharmD, [facility] Primary Care Clinical Pharmacist documented in this encounterMercy Health Kings [facility]12-15-2022 History of Present illness Narrative* Verna [...] getting foot healed. Has appointment to see [facility] endocrinology on 09/06 to establish care. Current [...] are present Adherence: denies missed doses Pharmacy: [facility]; Kiya is alternative Rx coverage: [facility] Medicare + Medicaid Affordability: no issues Diabetes supplies: [employer] System: pill boxes ACTIVE PROBLEM LIST Uncontrolled Type 2 Diabetes Mellitus With Complication, With Long-Term Current Use of Insulin Hypertension Goal Bp (Blood Pressure) < 140/90 Other Hyperlipidemia Ed (Erectile Dysfunction) Lower Urinary Tract Symptoms (Luts) History of Kidney Stones Microscopic Hematuria Diabetic Polyneuropathy Associated With Type 2 Diabetes Mellitus ([facility]) Nausea Vomiting Moderate Episode of Recurrent Major Depressive Disorder ([facility]) Right Leg Weakness Gait Instability Ckd (Chronic Kidney Disease) Requiring Chronic Dialysis ([facility]) Kidney Transplant Recipient Type 1 Diabetes Mellitus On Insulin Therapy ([facility]) PAST MEDICAL HISTORY Diagnosis Date Acute diastolic (congestive) heart failure ([facility]) Bronchitis Chronic kidney failure, stage 4 (severe) ([facility]) Depression Detached retina DM type 2, goal HbA1c < 7% ([facility]) ESRD (end stage renal disease) ([facility]) GERD (gastroesophageal reflux disease) Hyperlipidemia Kidney stones [...] 3 mg/actuation nasal spray (BAQSIMI) Use 1 [place] in the nose as needed for low [...] DAY) Taking 15 units with meals Insulin [place], Disposable, (BD ULTRA-FINE SANDRA PEN NEEDLE) 32 [...] Advised patient to discuss the following with leaf coverer at upcoming appt: consider labwork todetermine if [...] verbalized understanding of instructions. Verna Jensen PharmD, [facility] Primary Care Clinical Pharmacist The majority of the pharmacy visit (> 50%) was spent counseling and/or coordinating care for thepatient. interaction: face to face time was 70 minutes. documented in this encounterMercy Health Kings Mills Hospital12-15-2022 Instructions* Patient Instructions* Verna Jensen [facility] - 08/23/2022 3:00 PM EST INCREASE Lantus [...] like Ozempic or Trulicity. documented in this [facility]12-15-2022 Miscellaneous Notes* Telephone Encounter - Zaida Gaston MD - 08/23/2022 8:09 AM EST Noted Regards, Zaida Gaston MD * Telephone Encounter - Josseline Murphy RN - 08/20/2022 2:04 PM EST Felicita WORTHINGTONaudit clerk from [facility] calls to report that patient was discharged from group home Home Health. Patient has skin graft on left lower extremity. Patient feels like he can do wound care onhis own and does not feel that he needs them to come into his home anymore to help. Josseline Murphy RN documented in this encounterMercy Health Kings Mills Hospital11-29-2022 Miscellaneous Notes* Telephone Encounter - Anita Holbrook LPN - 08/07/2022 9:03 AM EST Popeye with [facility] called and the labs requested earlier did not go thru. Pt identified by name and date of . Requested 3 months back on labs. Copied and faxed to [phone]. Done. Anita Holbrook LPN documented in this encounterMercy Health Kings Mills Hospital11-28-2022 Miscellaneous Notes* Telephone Encounter - Jenae Cruz LPN - 08/06/2022 9:48 AM EST Popeye from [facility] calling received referral and asking for copy of lab to be faxed to [phone]. Printed labs from 08/04/2022 and faxed as requested. documented in this encounterMercy Health Kings Mills Hospital11-25-2022 History of Present illness Narrative* Meli Bolaños, GLOBAL COMPENSATION DIRECTOR.SENIOR NET SOFTWARE DEVELOPER - 08/03/2022 8:47 AM EST Formerly [facility], [facility] [place] [facility] Follow up Portions of this note [...] mild. Arteriolar hyalinosis, focal. 1 yr: Local Briquette Operator: Dr. Montiel Lab Frequency: Monthly Home BP: 120's/60's New Complaints: Feeling well overall Healing left foot. Continues with hyperbaric therapy. Awaiting PT. Completed all antibiotic therapy. Last lab results from 10/24 Will go to [facility] in [place] to establish with Endocrinology. Last A1c from 07/13 at 10.6 Current Outpatient Medications Medication Sig Insulin [place], Disposable, (BD ULTRA-FINE SANDRA PEN NEEDLE) 32 [...] 3 mg/actuation nasal spray (BAQSIMI) Use 1 [place] in the nose as needed for low [...] Last A1c 10.9 (that we have in [facility]) Rejection: No Malignancies: No Juvencio Haji RN [...] decision making of high complexity. Meli Bolaños APRN.SENIOR NET SOFTWARE DEVELOPER documented in this encounterMercy Health Kings Mills Hospital11-23-2022 Miscellaneous Notes* Telephone Encounter - Zaida Gaston MD - 08/01/2022 8:54 AM EST Staff Please fax the consult over documented in this encounterMercy Health Kings Mills Hospital11-11-2022 Miscellaneous Notes* Telephone Encounter - Torrie Moore LPN - 07/20/2022 12:26 PM EST Patient phones requesting refills as follows: Requested Prescriptions Pending Prescriptions Disp Refills Insulin [place], Disposable, (BD ULTRA-FINE SANDRA PEN NEEDLE) 32 gauge x 5/32 200 Each 11 Sig: Use as directed four times daily Please review and advise. Torrie Moore LPN documented in this encounterMercy Health Kings Mills Hospital11-04-2022 History of Present illness Narrative* Zaida [...] diagnostic (BLOOD GLUCOSE TEST) test strip Insulin [place], Disposable, (BD ULTRA-FINE SANDRA PEN NEEDLE) 32 [...] <130/80 Zaida Gaston MD documented in this encounterMercy Health Kings Mills Hospital10-27-2022 History of Present illness Narrative* Meli Bolaños APRN.SENIOR NET SOFTWARE DEVELOPER - 07/05/2022 8:40 AM EDT Formerly [facility], [facility] [place] [facility] Follow up Portions of this note [...] mild. Arteriolar hyalinosis, focal. 1 yr: Local Briquette Operator: Dr. Montiel Lab Frequency: Monthly Home BP: [...] DAY. DX: 250.E11.9. INSULIN DEP: yes Insulin [place], Disposable, (BD ULTRA-FINE SANDRA PEN NEEDLE) 32 gauge x 5/32 Use as directed four times daily glucagon 3 mg/actuation nasal spray (BAQSIMI) Use 1 [place] in the nose as needed for low [...] Last A1c 10.9 (that we have in [facility]) Rejection: No Malignancies: No Lashae Perry RN [...] complexity. Meli Bolaños APRN.ANDRE documented in this encounterMercy Health Kings Mills Hospital09-30-2022 History of Present illness Narrative* Juvencio Haji RN - 06/08/2022 12:00 PM EDT Formerly [facility], [facility] [place] [facility] Follow up Portions of this note [...] mild. Arteriolar hyalinosis, focal. 1 yr: Local [place] Operator: Dr. Montiel Lab Frequency: Monthly Home BP: [...] labwork drawn since 03/03. Orders updated in [facility] and new standing lab form given to [...] DAY. DX: 250.E11.9. INSULIN DEP: yes Insulin [place], Disposable, (BD ULTRA-FINE ASNDRA PEN NEEDLE) 32 gauge x /32 Use as directed four times daily glucagon 3 mg/actuation nasal spray (BAQSIMI) Use 1 [place] in the nose as needed for low [...] negative. Juvencio Haji RN documented in this encounterMercy Health Kings Mills Hospital08-17-2022 Miscellaneous Notes* Telephone Encounter - Kathrine [...] patient. Melissa Batres Pss documented in this encounterMercy Health Kings Mills Hospital08-02-2022 History of Present illness Narrative* Zaida [...] patient has diabetic neuropathy following at the [facility] with Dr. Levy for leftfoot ulcer with new wound region plantar region and cellulitis prompting debridement culture and initiation of doxycycline, Cipro regimen with daily dressings of silver alginate. He was recommended offloading and surgical shoe. He had been to vacation at [place] between March 13 and March 24. He [...] his wound suddenly worsened. In the[facility] on March 14, 2016 he was [...] Chronic kidney failure, stage 4 (severe) ([facility]) Depression Detached retina DM type 2, goal HbA1c < 7% (HCC) ESRD (end stage renal disease) ([facility]) GERD (gastroesophageal reflux disease) Hyperlipidemia Kidney stones [...] diagnostic (BLOOD GLUCOSE TEST) test strip Insulin [place], Disposable, (BD ULTRA-FINE SANDRA PEN NEEDLE) 32 [...] Amputation of little toe, initial encounter ([facility]) - ICD9: 895.0, ICD10: S98.139A (primary diagnosis) [...] of necrosis, unspecified part of foot ([facility]) - ICD9: 250.80, 707.15, ICD10: E11.621, L97.525 Controlled. - Continue current medications 4. Osteomyelitis of toe ([facility]) - ICD9: 730.27, ICD10: M86.9 He will need long-term antibiotic He has an ID that following up with him and podiatry and wound center Zaida Gaston MD documented in this encounterMercy Health Kings Mills Hospital08-01-2022 Miscellaneous Notes* Telephone Encounter - Zaida Gaston MD - 04/09/2022 6:57 PM EDT Noted * Telephone Encounter - Kirti Rehman RN - 04/09/2022 3:41 PM EDT Felicita with [facility] calling to update PCP that patient [place]. He has a superficial abrasion to his right knee. Patient denies hitting hishead or other injuries. Thank you. Kirti Rehman RN documented in this encounterMercy Health Kings Mills Hospital07-28-2022 Miscellaneous Notes* Telephone Encounter - DELROY Subramanian - 04/05/2022 10:29 PM EDT Patient phones requesting refills as follows: Pending Prescriptions Disp Refills PANTOPRAZOLE 20 MG TABLET,DELAYED RELEASE 90 tablet 1 Sig: Take 1 tablet by mouth once daily. RHETT: No Please review and advise. DELROY Subramanian documented in this encounterMercy Health Kings Mills Hospital07-20-2022 Miscellaneous Notes* Telephone Encounter - Monik [...] and OT orders? Please call Maranda at [phone] Thank you documented in this encounterMercy Health Kings Mills Hospital06-30-2022 History of Present illness Narrative* Chelsea Ryan MD - 03/08/2022 2:44 PM EDT Formerly [facility], [facility] [place] [facility] Follow up Portions of this note [...] mild. Arteriolar hyalinosis, focal. 1 yr: Local Bri[place] Operator: Dr. Montiel Lab Frequency: Monthly Home BP: [...] DAY. DX: 250.E11.9. INSULIN DEP: yes Insulin [place], Disposable, (BD ULTRA-FINE SANDRA PEN NEEDLE) 32 gauge x Use as directed four times daily glucagon 3 mg/actuation nasal spray (BAQSIMI) Use 1 [place] in the nose as needed for low [...] Pt's scheduled him to see endocrinology in [facility] for improved glycemic control. Z94.0 Kidney [...] complexity. Chelsea Ryan MD documented in this encounterMercy Health Kings Mills Hospital06-24-2022 Miscellaneous Notes* Telephone Encounter - Conner LEZAMA - 03/02/2022 4:28 PM EDT Email Address: [email or web address] Patient Demographics: Eddie BURGOS [id number] Date Letter Sent: 03/02/2022 Information Sent: CUTEPDF documented in this encounterMercy Health Kings Mills Hospital06-08-2022 Miscellaneous Notes* Telephone Encounter - Juvencio [...] advise. Juvencio Haji RN documented in this encounterMercy Health Kings Mills Hospital05-02-2022 Miscellaneous Notes* Telephone Encounter - Megan Bermudez - 01/08/2022 2:04 PM EDT [facility] JORDY: 12/08/21 Patient's request for medication is as follows: Pending Prescriptions Disp Refills PANTOPRAZOLE 20 MG TABLET,DELAYED RELEASE 90 tablet 1 Sig: Take 1 tablet by mouth once daily. RHETT: Yes Please approve the above prescription(s) to electronically send to pharmacy. Megan Bermudez documented in this encounterMercy Health Kings Mills Hospital04-19-2022 History of Present illness Narrative* Kathy Jurado, Research Coordinator - 12/26/2021 9:23 AM EDT Study Title: [id number] Validation of genomic immune-phenotyping profiles in peripheral blood genesignatures to predict risk of kidney transplant rejection Visit: Screening/Consent PI: Dr. Jose Link coordinator cardiopulmonary services: Kathy Jurado Study ID Number: [id number] Visit Timepoint: 6 months The patient verbally consents to continue in the research: Yes Labs Drawn: Patient taken to the clinical lab for blood draw. Labs collected at: 08:20 AM Collect Clean Catch Urine Sample: Sample colleted at: 08:20 AM Follow Up: Patient instructed that next study visit will be: 12 months Kathy Jurado [phone] Research Coordinator documented in this encounterMercy Health Kings Mills Hospital04-01-2022 History of Present illness Narrative* Alana Kent APRN.SENIOR NET SOFTWARE DEVELOPER - 12/08/2021 8:47 AM EDT Formerly [facility], [facility] [place] [facility] Follow up Portions of this note [...] mild. Arteriolar hyalinosis, focal. 1 yr: Local Bri[place] Operator: Dr. Montiel Lab Frequency: Every other week Home BP: 150's/80's New Complaints: Feeling well overall Has blisters to all left toes. Taking Amoxicillin, unsure of dose or duration. Being followed by local fish housekeeper No complaints Current Outpatient Medications Medication Sig [...] DAY. DX: 250.E11.9. INSULIN DEP: yes Insulin [place], Disposable, (BD ULTRA-FINE SANDRA PEN NEEDLE) 32 gauge x 32 Use as directed four times daily glucagon 3 mg/actuation nasal spray (BAQSIMI) Use 1 [place] in the nose as needed for low [...] 5. Lipids/CV risk: Continue atorvastastin 6. Bone health/group home corticosteroid use: Ca/phos stable 7. Health maintenance: Up to date 8. Viral screening: BK/CMV negative 9. other: RTC in 2 weeks Alana Kent APRN.SENIOR NET SOFTWARE DEVELOPER documented in this encounterMercy Health Kings Mills Hospital04-09-2019 History of Past illness Narrative* Problem [...] of this encounter (statuses as of 11/23/2022) [facility]04[facility] of Past illness Narrative* Problem [...] of this encounter (statuses as of 01/01/2023) [facility] illness Narrative* Problem [...] of this encounter (statuses as of 01/02/2023) [facility] illness Narrative* Problem [...] of this encounter (statuses as of 01/17/2023) [facility] illness Narrative* Problem [...] of this encounter (statuses as of 01/17/2023) [facility] illness Narrative* Problem [...] of this encounter (statuses as of 02/26/2023) [facility] Narrative* Problem [...] of this encounter (statuses as of 03/14/2023) [facility] Narrative* Problem [...] of this encounter (statuses as of 03/20/2023) [facility] Narrative* Problem [...] of this encounter (statuses as of 04/03/2023) [facility] Narrative* Problem [...] of this encounter (statuses as of 04/12/2023) [facility] Narrative* Problem [...] of this encounter (statuses as of 05/22/2023) [facility] Narrative* Problem [...] of this encounter (statuses as of 07/02/2023) [facility] Narrative* Problem [...] of this encounter (statuses as of 07/14/2023) [facility] Narrative* Problem [...] of this encounter (statuses as of 07/16/2023) [facility] Narrative* Problem [...] of this encounter (statuses as of 07/20/2023) [facility] Narrative* Problem [...] of this encounter (statuses as of 07/23/2023) [facility] Narrative* Problem [...] of this encounter (statuses as of 07/25/2023) [facility] Narrative* Problem [...] of this encounter (statuses as of 07/31/2023) [facility] Narrative* Problem [...] of this encounter (statuses as of 08/14/2023) [facility] Narrative* Problem [...] of this encounter (statuses as of 08/21/2023) [facility] Narrative* Problem [...] of this encounter (statuses as of 08/24/2023) [facility] Narrative* Problem [...] of this encounter (statuses as of 08/30/2023) [facility] Narrative* Problem [...] of this encounter (statuses as of 09/22/2023) [facility] Narrative* Problem [...] of this encounter (statuses as of 10/11/2023) [facility] Narrative* Problem [...] of this encounter (statuses as of 10/11/2023) [facility] Narr[facility]* Problem [...] of this encounter (statuses as of 10/14/2023) [facility]arr[facility]* Problem [...] of this encounter (statuses as of 10/14/2023) [facility]* Problem [...] of this encounter (statuses as of 10/30/2023) [facility]* Problem [...] of this encounter (statuses as of 11/01/2023) [facility]* Problem [...] of this encounter (statuses as of 11/25/2023) [facility]* Problem [...] of this encounter (statuses as of 11/26/2023) [facility]* Problem [...] of this encounter (statuses as of 11/27/2023) [facility]* Problem [...] of this encounter (statuses as of 12/13/2023) [facility] Narrative* Problem [...] of this encounter (statuses as of 12/08/2021) [facility]* Problem [...] of this encounter (statuses as of 12/20/2021) [facility]* Problem [...] of this encounter (statuses as of 12/26/2021) [facility]* Problem [...] of this encounter (statuses as of 01/12/2022) [facility]* Problem [...] of this encounter (statuses as of 02/14/2022) [facility]* Problem [...] of this encounter (statuses as of 03/02/2022) [facility]* Problem [...] of this encounter (statuses as of 03/08/2022) [facility] Problem [...] of this encounter (statuses as of 03/28/2022) [facility]* Problem [...] of this encounter (statuses as of 03/28/2022) [facility]* Problem [...] of this encounter (statuses as of 04/06/2022) [facility] Problem [...] of this encounter (statuses as of 04/10/2022) [facility]* Problem [...] of this encounter (statuses as of 04/11/2022) [facility] Problem [...] of this encounter (statuses as of 04/25/2022) [facility] Problem [...] of this encounter (statuses as of 05/17/2022) [facility]* Problem [...] of this encounter (statuses as of 05/17/2022) [facility]* Problem [...] of this encounter (statuses as of 06/12/2022) [facility]* Problem [...] of this encounter (statuses as of 07/05/2022) [facility]* Problem [...] of this encounter (statuses as of 07/13/2022) [facility]* Problem [...] of this encounter (statuses as of 07/20/2022) [facility]* Problem [...] of this encounter (statuses as of 08/01/2022) [facility]* Problem [...] of this encounter (statuses as of 08/03/2022) [facility]* Problem [...] of this encounter (statuses as of 08/06/2022) [facility]* Problem [...] of this encounter (statuses as of 08/07/2022) [facility]* Problem [...] of this encounter (statuses as of 08/23/2022) [facility]* Problem [...] of this encounter (statuses as of 08/23/2022) [facility]* Problem [...] of this encounter (statuses as of 08/23/2022) [facility]* Problem [...] of this encounter (statuses as of 08/25/2022) [facility]* Problem [...] of this encounter (statuses as of 09/24/2022) [facility] Problem [...] of this encounter (statuses as of 09/24/2022) [facility]* Problem [...] of this encounter (statuses as of 10/04/2022) [facility]* Problem [...] of this encounter (statuses as of 10/15/2022) [facility]* Problem [...] of this encounter (statuses as of 11/21/2022) [facility]* Problem [...] of this encounter (statuses as of 11/22/2022) [facility] Hospital[facility] note Author Dr. Levy [facility] November 01, 2022 10:17am Note Date/Time November 01, 2022 10:16am [facility] Medical Records Department [address] [place] [address] Consultation 11/01/22 1007 MR#: [id number] Acct: [id number] Name: ITALO BURGOS Rep #:[id number] : 1970 51 From: Mayo Levy DPM [...] to transmetatarsal amputation today. No other complaints. [facility] Medical History (Updated 11/01/22 @ 10:[address] 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 Zaida Gaston MD~ Signed [facility] Work Phone: Discharge summary Author Dona Medina [facility] November 05, 2022 7:23pm Note Date/Time November 05, 2022 7:09pm [facility] Medical Records Department [address] [place] [address] Discharge Summary 11/05/22 1909 MR#: [id number] Acct: [id number] Name: ITALO BURGOS Rep #:[id number] : 1970 51 From: Dona adams DPM PCP: Dr. Zaida Gaston MD Status:ADM I N [id number] Date of Admission: 11/01/22 Date of Discharge: 11/05/22 Primary Care Physician: Dr. 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 D.P.M. [facility] [phone] Medications at Discharge Home Medications insulin lispro [...] left foot. He was sent to the [facility] ED for admitting and receiving of IV antibiotics. Patient did undergo lab work along with chest x-ray and EKG in order for surgical clearance. Medicine team did follow for medical management. 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 Levy performed transmetatarsal amputation [...] Henderson ; Awa Martínez ; Vivian Garrison RATE AND COST ANALYST ; John Funes RATE AND COST ANALYST ; Faviola Josue ; Satish Nava Discharge [...] IRIS Medina; Dr. Zaida Gaston MD~ Signed [facility] Work Phone: Discharge summary Author Dona Medina [facility] November 05, 2022 7:13pm Note Date/Time November 05, 2022 7:13pm [facility] Medical Records Department [address] [place] [address] Instructions for Home/Discharge Instructions 11/05/22 190 MR#: [id number] Acct: [id number] Name: ITALO BURGOS Rep #:[id number] : 1970 51 From: Dona adams DPM [...] Zaida Gaston Consulting Providers: Delmy Billy ; Aym Ureña ; William Hayes ; Kerrie Henderson [...] by Dona Medina DPM>Dona Medina DPM CC: RATE AND COST ANALYST-C Vivian Garrison; RATE AND COST ANALYST-C John Funes; AJ Josue; Delmy Billy; Dr. Amy Ureña MD; Dr. Zaida Gaston MD; Dr. William Hayes DO; Dr. Kendra MD; Dr. Awa Martínez MD; Dr. Satish Nava MD ~ Signed [facility] Work Phone: Evaluation note* Diagnosis S/P kidney transplant- Primary Kidney replaced by transplant Immunosuppressive management encounter following kidney transplant Encounter for long-term (current) use of other medications [facility] Diagnosis Onset Date Resolution Status Hyperglycemia resolved Hyperkalemia resolved [facility] Work Phone: Evaluation note* Diagnosis Research subject- Primary [facility] Diagnosis Onset Date Resolution Status Hyperglycemia resolved Hyperkalemia resolved Type 2 diabetes mellitus with diabetic polyneuropathy acute 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 exposed chronic Non-pressure chronic ulcer o f other part of right foot with fat layer exposed chronic [facility] Work Phone: Evaluation note* Diagnosis Onset Date Resolution Status Type 2 diabetes mellitus with diabetic polyneuropathy acute 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 exposed chronic Non-pressure chronic ulcer o f other part of right foot with fat layer exposed chronic Renal transplant recipient a cute Atherosclerotic heart diseas e of [place] coronary artery without angina pectoris chronic Essential hypertension chron ic HLD (hyperlipidemia) chronic Type 2 diabetes mellitus with diabetic polyneuropathy acute 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 exposed chronic Non-pressure chronic ulcer o f other part of right foot with fat layer exposed chronic [facility] Work Phone: Evaluation note* Diagnosis Kidney replaced by transplant- Primary Encounter for aftercare following kidney transplant Aftercare following organ transplant Post-transplant erythrocytosis Polycythemia, secondary Immunosuppressive management encounter following kidney transplant Encounter for long-term (current) use of other medications [facility] Diagnosis Onset Date Resolution Status Type 2 diabetes mellitus with diabetic polyneuropathy acute 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 exposed chronic Non-pressure chronic ulcer o f other part of right foot with fat layer exposed chronic Renal transplant recipient a cute Atherosclerotic heart diseas e of [place] coronary artery without angina pectoris chronic Essential [...] chronic Other specified peripheral vascular diseases chronic [facility] Work Phone: Evaluation note* Diagnosis Onset Date Resolution Status Type 2 diabetes mellitus with diabetic polyneuropathy acute 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 exposed chronic Non-pressure chronic ulcer o f other part of right foot with fat layer exposed chronic Renal transplant recipient a cute Atherosclerotic heart diseas e of [place] coronary artery without angina pectoris chronic Essential [...] hyperglycemia acute ILDA (acute kidney injury) [place] Diabetic foot infection acut e Necrotizing fasciitis acute Sepsis acute [facility] Work Phone: Evaluation note* Diagnosis Onset Date Resolution Status Type 2 diabetes mellitus with diabetic polyneuropathy acute 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 exposed chronic Non-pressure chronic ulcer o f other part of right foot with fat layer exposed chronic Renal transplant recipient a cute Atherosclerotic heart diseas e of [place] coronary artery without angina pectoris chronic Essential [...] hyperglycemia acute ILDA (acute kidney injury) [place] Bacteremia acute Cellulitis of left lower limb [...] with fat layer exposed chronic Noncompliance chronic [facility] Work Phone: Evaluation note* Diagnosis Kidney replaced by transplant- Primary [facility] Diagnosis Onset Date Resolution Status Non-pressure chronic ulcer o f other part of right foot with fat layer exposed chronic Atherosclerotic heart diseas e of [place] coronary artery without angina pectoris chronic Non-pressure chronic ulcer o f other part of right foot with fat layer exposed chronic Other specified peripheral vascular diseases chronic Acute hyperglycemia resolved ILDA (acute kidney injury) re solved Bacteremia resolved Sepsis resolved 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 acute Other specified peripheral vascular diseases chronic Bacteremia resolved Sepsis resolved [facility] Work Phone: Evaluation note* Diagnosis Amputation of little toe, initial encounter (HCC)- Primary Necrotizing fasciitis (HCC) Necrotizing fasciitis Diabetic ulcer of left foot associated with type 2 diabetes mellitus, with muscle involvement without evidence of necrosis, unspecified part of foot (HCC) Osteomyelitis of toe (HCC) Unspecified osteomyelitis, ankle and foot [facility] Diagnosis Onset Date Resolution Status Atherosclerotic heart diseas e of [place] coronary artery without angina pectoris chronic Non-pressure [...] 2 diabetes mellitus with diabetic polyneuropathy chronic [facility] Work Phone: Evaluation note* Diagnosis Onset Date [...] Type 2 diabetes mellitus with diabetic polyneuropathy [facility] Work Phone: Evaluation note* Diagnosis Kidney replaced by transplant- Primary [facility] Diagnosis Encounter for aftercare following kidney transplant- Primary Aftercare following organ transplant Kidney replaced by transplant Immunosuppressive management encounter following kidney transplant Encounter for long-term (current) use of other medications Essential hypertension Unspecified essential hypertension Transaminitis Nonspecific elevation of levels of transaminase or lactic acid dehydrogenase (LDH) documented in this encounter [facility] note* Diagnosis Controlled type 2 diabetes mellitus without complication, without long-term current use of insulin ([facility])- Primary Uncontrolled hypertension Unspecified essential hypertension Need for influenza vaccination Need for prophylactic vaccination and inoculation against influenza [facility]* Diagnosis Controlled type 2 diabetes mellitus without complication, without long-term current use of insulin ([facility])- Primary documented in this encounter [facility] note* Diagnosis Kidney replaced by transplant- Primary Encounter for aftercare following kidney transplant Aftercare following organ transplant Immunosuppressive management encounter following kidney transplant Encounter for long-term (current) use of other medications Essential hypertension Unspecified essential hypertension documented in this encounter [facility] note* Diagnosis Type 1 diabetes mellitus on insulin therapy ([facility])- Primary Type I (juvenile type) diabetes mellitus without mention of complication, not stated as uncontrolled Medication management Encounter for long-term (current) use of other medications documented in this encounter [facility] note* Diagnosis Diabetic ulcer of left foot associated with type 1 diabetes mellitus, unspecified part of foot, unspecified ulcer stage (HCC)- Primary Other hyperlipidemia Hypertension goal BP (blood pressure) < 140/90 Unspecified essential hypertension Diabetic polyneuropathy associated with type 2 diabetes mellitus ([facility]) 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 ([facility]) End stage renal disease Type 1 diabetes mellitus on insulin therapy (HCC) Type I (juvenile type) diabetes mellitus without mention of complication, not stated as uncontrolled Moderate episode of recurrent major depressive disorder ([facility]) documented in this encounter [facility] note* Diagnosis Onset Date Resolution Status [...] polyneuropathy chronic Atherosclerotic heart diseas e of [place] coronary artery without angina pectoris chronic Diabetic foot ulcer acute [id number] acute 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 acute 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 exposed acute Osteomyelitis of metatarsal acute 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 [facility] Work Phone: Evaluation note* Diagnosis Onset Date [...] polyneuropathy chronic Atherosclerotic heart diseas e of [place] coronary artery without angina pectoris chronic Diabetic foot ulcer chronic Obesity (BMI 30-39.9) chroni c 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 [id number] acute 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 acute 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 exposed acute Osteomyelitis of metatarsal acute Diabetic foot ulcer chronic 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 [facility] Work Phone: Evaluation note* Diagnosis Type 1 diabetes mellitus on insulin therapy (HCC)- Primary Type I (juvenile type) diabetes mellitus without mention of complication, not stated as uncontrolled [facility] Diagnosis Kidney replaced by transplant- Primary Immunosuppressive management encounter following kidney transplant Encounter for long-term (current) use of other medications Mixed hyperlipidemia [facility]* Diagnosis Type 1 diabetes mellitus on insulin therapy (HCC)- Primary Type I (juvenile type) diabetes mellitus without mention of complication, not stated as uncontrolled [facility] Diagnosis Onset Date Resolution Status [...] polyneuropathy chronic Atherosclerotic heart diseas e of [place] coronary artery without angina pectoris chronic Diabetic foot ulcer chronic Obesity (BMI 30-39.9) chroni c 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 [id number] acute 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 acute 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 exposed acute Osteomyelitis of metatarsal acute Diabetic foot ulcer chronic 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 [id number] acute 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 acute 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 exposed acute Osteomyelitis of metatarsal acute Diabetic foot ulcer chronic 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 [facility] Work Phone: Evaluation note* Diagnosis Onset Date [...] polyneuropathy chronic Atherosclerotic heart diseas e of [place] coronary artery without angina pectoris chronic Diabetic foot ulcer chronic Obesity (BMI 30-39.9) chroni c 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 [id number] acute 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 acute 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 exposed acute Osteomyelitis of metatarsal acute Diabetic foot ulcer chronic 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 [id number] acute History of partial ray amput ation [...] (severe) chronic Atherosclerotic heart diseas e of [place] coronary artery without angina pectoris chronic Chronic renal failure, stage 4 (severe) chronic Diabetic nephropathy chronic 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 Other specified peripheral vascular diseases [facility] Work Phone: Evaluation note* Diagnosis Onset Date [...] a cute Atherosclerotic heart diseas e of [place] coronary artery without angina pectoris chronic Diabetic foot ulcer chronic Obesity (BMI 30-39.9) chroni c 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 [id number] acute 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 acute 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 exposed acute Osteomyelitis of metatarsal acute Diabetic foot ulcer chronic 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 [id number] acute History of partial ray amput ation [...] (severe) chronic Atherosclerotic heart diseas e of [place] coronary artery without angina pectoris chronic Chronic renal failure, stage 4 (severe) chronic Diabetic nephropathy chronic 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* Diagnosis Moderate episode of recurrent major [...] Unspecified essential hypertension [facility] Diagnosis Kidney replaced by transplant- Primary Encounter for aftercare following kidney transplant Aftercare following organ transplant Immunosuppressive management encounter following kidney transplant Encounter for long-term (current) use of other medications ILDA (acute kidney injury) (HCC) Acute kidney failure, unspecified [facility]* Diagnosis Onset Date Resolution Status [id number] acute History of partial ray amput ation [...] (severe) chronic Atherosclerotic heart diseas e of [place] coronary artery without angina pectoris chronic Chronic [...] Type 2 diabetes mellitus with hyperglycemia chronic [facility] Work Phone: Evaluation note* Diagnosis Kidney replaced by transplant- Primary [facility] Diagnosis Hypertension goal BP (blood pressure) < 140/90- Primary Unspecified essential hypertension Other hyperlipidemia Type 1 diabetes mellitus on insulin therapy (HCC) Type I (juvenile type) diabetes mellitus without mention of complication, not stated as uncontrolled Moderate episode of recurrent major depressive disorder (HCC) Diarrhea, unspecified type Pain of right lower extremity Left leg claudication ([facility]) Peripheral vascular disease, unspecified Viral wart on finger [facility] Diagnosis Onset Date Resolution Status Diabetic nephropathy chronic Obesity (BMI 30-39.9) chroni c Type 2 diabetes mellitus with hyperglycemia chronic Renal transplant recipient a cute Atherosclerotic heart diseas e of [place] coronary artery without angina pectoris chronic [facility] Work Phone: Evaluation note* Diagnosis Encounter for aftercare following kidney transplant- Primary [facility]care following [facility] Pain of right lower extremity [facility] Diagnosis Diabetic polyneuropathy associated with type 2 diabetes mellitus (HCC)- Primary Moderate episode of recurrent major depressive disorder (HCC) Kidney transplant recipient Elevated alkaline phosphatase level Other nonspecific abnormal serum enzyme levels Erectile dysfunction, unspecified erectile dysfunction type Mixed hyperlipidemia [facility] Diagnosis Kidney replaced by transplant- Primary Vitamin D deficiency Unspecified vitamin D deficiency Erectile dysfunction, unspecified erectile dysfunction type Immunosuppressive management encounter following kidney transplant Encounter for long-term (current) use of other medications PTE (post-transplant erythrocytosis) Polycythemia, secondary [facility] Diagnosis Kidney replaced by transplant- Primary [facility] Diagnosis Kidney replaced by transplant- Primary High risk medication use Encounter for long-term (current) use of other medications Vitamin D deficiency Unspecified vitamin D deficiency [facility] Diagnosis Kidney replaced by transplant- Primary [facility] Diagnosis Impotence Impotence of organic origin [facility] Diagnosis Impotence of organic origin- Primary [facility]* Diagnosis Type 1 diabetes mellitus on insulin therapy (HCC)- Primary Type I (juvenile type) diabetes mellitus without mention of complication, not stated as uncontrolled Kidney transplant recipient Hypertension goal BP (blood pressure) < 140/90 Unspecified essential hypertension Moderate episode of recurrent major depressive disorder (HCC) LUANNE (obstructive sleep apnea) Obstructive sleep apnea (adult) (pediatric) [facility] Diagnosis Moderate episode of recurrent major depressive disorder (HCC) [facility] Moderate episode of recurrent major depressive disorder (HCC) [facility] Diagnosis Impotence of organic origin [facility]* Diagnosis Diarrhea, unspecified type- Primary Mixed hyperlipidemia Kidney transplant recipient Diabetic polyneuropathy associated with type 2 diabetes mellitus (HCC) [facility] Diagnosis Immunosuppressed status (HCC)- Primary Unspecified disorder of immune mechanism Kidney replaced by transplant [facility]* Diagnosis Diabetic polyneuropathy associated with type 2 diabetes mellitus (HCC) [facility]* Diagnosis Onset Date Resolution Status Obesity (BMI 30-39.9) chroni c Polyneuropathy chronic 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 Renal transplant recipient a cute Atherosclerotic heart diseas e of [place] coronary artery without angina pectoris chronic Chronic renal failure, stage 4 (severe) chronic Hypertension chronic Obesity (BMI 30-39.9) chroni c Type 2 diabetes mellitus with hyperglycemia chronic [facility] Work Phone: Evaluation note* Diagnosis Kidney replaced by transplant- Primary [facility]* Diagnosis Type 1 diabetes mellitus on [...] apnea (adult) (pediatric) documented in this encounter [facility] note* Diagnosis Moderate episode of recurrent major depressive disorder (HCC)- Primary [facility]* Diagnosis Diarrhea, unspecified type- Primary Gastroesophageal reflux disease without esophagitis Esophageal reflux FH: colon cancer in first degree relative <60 years old documented in this encounter [facility] note* Diagnosis Nausea and vomiting, unspecified vomiting type- Primary Diarrhea, unspecified type documented in this encounter [facility] note* Diagnosis Type 2 diabetes mellitus [...] stated as uncontrolled documented in this encounter [facility] note* Diagnosis Type 2 diabetes mellitus [...] kidney disease (HCC) documented in this encounter [facility] note* Diagnosis Type 2 diabetes mellitus [...] depressive disorder (HCC) documented in this encounter [facility] note* Diagnosis Type 2 diabetes mellitus [...] stated as uncontrolled documented in this encounter [facility] note* Diagnosis Type 2 diabetes mellitus [...] esophagitis Esophageal reflux [facility] noteNo assessment information availableWMer[facility] Work Phone: Evaluation note* Diagnosis Type [...] unspecified hydronephrosis type [facility]* Diagnosis Type 2 diabetes mellitus with [...] of other medications documented in this encounter [facility] note* Diagnosis Type 2 diabetes mellitus [...] as uncontrolled [facility]* Diagnosis Type 2 diabetes mellitus [...] unspecified genitourinary condition [facility]* Diagnosis Type 2 diabetes mellitus [...] replaced by transplant [facility] Author Dr. Levy [facility] November 01, 2022 10:43am Note Date/Time November 01, 2022 10:42am [facility] Medical Records Department [address] [place] [address] History & Physical Exam 11/01/22 1041 MR#: [id number] Acct: [id number] Name: ITALO BURGOS Rep #:[id number] : 1970 51 From: Mayo Levy DPM PCP: Dr. Zaida Gaston MD Status:REG S CO Location: [place] [address] HPI - General General Date of Admission: [...] to transmetatarsal amputation today.? No other complaints. [facility] Medical History Acute hypoxemic respiratory failure Acute on chronic diastolic CHF (congestive heart failure) Acute respiratory failure with hypoxia ILDA (acute kidney injury) Anasarca associated with disorder of kidney Anemia of chronic renal failure, stage 4 (severe) Anxiety and depression Atherosclerotic heart disease of [place] coronary artery without angina pectoris Autonomic neuropathy [...] % (Auto) 67.5, Lymph % (Auto) 21.1, [place]% (Auto) 9.7, Eos % (Auto) 0.9, Baso [...] Levy DPM> Cosigner Signature (if applicable): CC: IIRS Levy; Dr. Zaida Gaston MD~ Signed [facility] Work Phone: Hospital Discharge instructions Additional Instructions Your creatinine 2.1. You are given a liter follow-up with us. Use Reglan as needed for dizziness symptoms. Follow-up your doctor recheck labs.[facility] Work Phone: Progress note [facility] November 05, 2022 7:08pm Note Date/Time November 05, 2022 7:08pm [facility] Medical Records Department [address] [place] [address] Progress Note 11/05/221902 MR#: [id number] Acct: [id number] Name: ITALO BURGOS Rep #:[id number] : 1970 51 From: Dona adams DPM PCP: Dr. Zaida Gaston MD Status:ADM I N Location: MD3 [id number] Subjective Subjective Patient was seen bedside sitting [...] Howie ParedesP.M. [facility] [phone] 11/05/221907 <Electronically signed by Dona Medina DPM> Dona Vazquez Cosigner Signature (if applicable): CC: ~ Signed [facility] Work Phone: Reason for referral (narrative)* Outpatient Procedure (Routine) - Authorized Specialty Diagnoses / Procedures Referred By Contac t Referred To Contact [facility] [place] Diagnoses Left leg claudication (HCC) Procedures PVR LEG W/EXC ROLY VAS LAB N-INVAS PHYSIOLOGIC STD [place] [address] [place], [place] [id number] [place] [id number] Referral ID Status Reason Start Date Expiration Date Visits Requested Visits Authorized [id number] Authorized Auto-Generat ed Referral 02/25/2023 02/25/2024 1 1 * Outpatient Procedure (Routine) - Authorized Specialty Diagnoses / Procedures Referred By Contac t Referred To Contact [facility] Diagnoses Pain of right lower extremity Procedures US LEG VEIN DVT UNL VAS LAB DUP-SCAN XTR VEINS UNILATERAL/LIMITED STUDY Zaida Gaston MD [address] [place] [address] [place] [id number] Referral ID Status Reason Start Date Expiration Date Visits Requested Visits Authorized [id number] Authorized Auto-Generat ed Referral 02/25/2023 02/25/2024 1 1 * Consult, Test, Treat (Routine) - Pending Review Specialty Diagnoses / Procedures Referred By Contac t Referred To Contact Gastroenterology Diagnoses Diarrhea, unspecified type Procedures CONSULT TO GASTROENTEROLOGY OFFICE/OUTPATIENT [facility] HIGH MDM 60-74 MINUTES Zaida Gaston MD [address] [place] [address] Referral ID Status Reason Start Date Expiration Date Visits Requested Visits Authorized [id number] Pending Review PCP Requested Referral 02/25/2023 02/25/2024 1 1 [facility] for referral (narrative)* Outpatient Procedure (Routine) - New Request Specialty Diagnoses / Procedures Referred By Contac t Referred To Contact [facility] Diagnoses Diarrhea, unspecified type Procedures COLONOSCOPY DIAGNOSTIC COLONOSCOPY FLX DX W/COLLJ SPEC WHEN Nia Anne APRN.SENIOR NET SOFTWARE DEVELOPER [address] [place] [address] [facility] Disease [address] [address] Referral ID Status Reason Start Date Expiration Date Visits Requested Visits Authorized [id number] New Request Auto-Generat ed Referral 03/24/2024 03/24/2025 1 1 * Outpatient Procedure (Routine) - New Request Specialty Diagnoses / Procedures Referred By Contac t Referred To Contact [facility] Diagnoses Diarrhea, unspecified type Procedures EGD DIAGNOSTIC ESOPHAGOGASTRODUODENOSC OPY TRANSORAL DIAGNOSTIC Nia James APRN.SENIOR NET SOFTWARE DEVELOPER [address] [place] [address] [facility] Disease [place] [phone] Referral ID Status Reason Start Date Expiration Date Visits Requested Visits Authorized [id number] New Request Auto-Generat ed Referral 03/24/2024 03/24/2025 1 1 [facility] for referral (narrative)* Outpatient Procedure (Routine) - Closed Specialty Diagnoses / Procedures Referred By Contac t Referred To Contact Diagnoses Diarrhea, unspecified type Procedures COLONOSCOPY DIAGNOSTIC COLONOSCOPY FLX DX W/COLLJ SPEC WHEN Nia Anne APRN.SENIOR NET SOFTWARE DEVELOPER [address] [place] [address] [facility] [address] [place] [id number] Referral ID Status Reason Start Date Expiration Date V isits Requested Visits Authorized [id number] Closed Auto-Generate d Referral 04/01/2024 03/24/2025 1 1 * Outpatient Procedure (Routine) - Closed Specialty Diagnoses / Procedures Referred By Contac t Referred To Contact [facility] Diagnoses Diarrhea, unspecified type Procedures EGD DIAGNOSTIC ESOPHAGOGASTRODUODENOSC OPY TRANSORAL DIAGNOSTIC Nia James APRN.SENIOR NET SOFTWARE DEVELOPER [address] [place] [address] [facility] Disease [address] [address] Referral ID Status Reason Start Date Expiration Date V isits Requested Visits Authorized [id number] Closed Auto-Generate d Referral 03/24/2024 03/24/2025 1 1 [facility] for referral (narrative)No reason for referral information [facility]WMercy [facility] Work Phone: Reason for visit Narrative* Outpatient Procedure (Routine) - Closed Specialty Diagnoses / Procedures Referred By Contac t Referred To Contact [facility] Diagnoses Pain of right lower extremity Procedures US LEG VEIN DVT UNL VAS LAB DUP-SCAN XTR VEINS UNILATERAL/LIMITED STUDY Zaida Gaston MD [address] [place] [address] [facility] [address] [place] [id number] Referral ID Status Reason Start Date Expiration Date V isits Requested Visits Authorized [id number] Closed Auto-Generate d Referral 02/25/2023 02/25/2024 1 1 [facility] for visit Narrative* Outpatient Procedure (Routine) - Closed Specialty Diagnoses / Procedures Referred By Contac t Referred To Contact Diagnoses Diarrhea, unspecified type Procedures COLONOSCOPY DIAGNOSTIC COLONOSCOPY FLX DX W/COLLJ SPEC WHEN PFRMD Nia James, PATRICIA.SENIOR NET SOFTWARE DEVELOPER [address] [place] [address] [facility] [address] [place] [address] Referral ID Status Reason Start Date Expiration Date V isits Requested Visits Authorized [id number] Closed Auto-Generate d Referral 04/01/2024 03/24/2025 1 1 [facility] Advance Directives No Advanced Directives Records FoundDocuments on File Type Date Recorded Patient [place] Reporter Expl anation Advance Directive(s) 05/13/2025 12:02 PM [...] Documents on File Type Date Recorded Patient [place]cre[place] Reporter Expl anation Advance Directive(s) 06/22/2021 9:47 AM Advance Directive(s) 03/09/2021 6:34 PM Advance Directive(s) 03/15/2020 7:10 AM Advance Directive(s) 02/23/2020 11:11 AM Advance Directive(s) 12/04/2018 6:31 AM Advance Directive(s) 11/22/2017 9:25 AM Advance Directive Response Recorded Date/ Time Name of Medical Power of Wood Carver lowell benedict la September 14, 2021 9:48am Advance Directives Yes October 11:51am Living Will Yes September 18 1:30am Power of Wood Carver Yes September 18, 2021 1:30am Advance Directive Response Recorded Date/ Time Advance Directives Yes October 11:51am Living Will Yes September 18 1:30am Power of Wood Carver Yes September 18, 2021 1:30am Advance Directive Response Recorded Date/ Time Name of Medical Power of Wood Carver [place] March 24, 2022 1:04am Advance Directives Yes October 11:51am Living Will Yes March 24, 2022 1:04am Power of Wood Carver Yes March 24 1:04am Advance Directive Response Recorded Date/ Time Name of Medical Power of Wood Carver [facility] March 24, 2022 3:32am Advance Directives Yes October 11:51am Living Will Yes March 24, 2022 3:32am Power of Wood Carver Yes March 24 3:32am Advance Directive Response Recorded Date/ Time Advance Directives Yes October 10:51am Living Will No August 28, 022 10:08am Power of Wood Carver No August 28, 2022 10:08am Advance Directive Response Recorded Date/ Time Name of Medical Power of Wood Carver [facility] November 01, 2022 9:38am Advance Directives Yes October 10:51am Living Will Yes November 01 023 9:38am Power of Wood Carver Yes November 01, 2022 9:38am Advance Directive Response Recorded Date/ Time Name of Medical Power of Wood Carver [facility] November 01, 2022 3:47pm Advance Directives Yes October 10:51am Living Will Yes November 01, 023 3:47pm Power of Wood Carver Yes November 01, 2022 3:47pm Advance Directive Response Recorded Date/ Time Name of Medical Power of Wood Carver [facility] November 01, 2022 4:47pm Advance Directives Yes October 11:51am Living Will Yes November 01, 023 4:47pm Power of Wood Carver Yes November 01, 2022 4:47pm Advance Directive Response Recorded Date/ Time Advance Directives Yes October 11:51am Living Will No March 13, 2023 1 0:28pm Power of Wood Carver No March 13, 2023 10:28pm Advance Directive Response Recorded Date/ Time Living Will No March 13, 2023 1 0:28pm Power of Wood Carver No March 13, 2023 10:28pm Living Will Yes November 19, 2024 2:23pm Power of Wood Carver Yes November 19 2:23pm Name of Medical Power of Wood Carver Ying [place] November 19, 2024 2:23pm Advance Directives Yes October 11:51am Advance Directive Response Recorded Date/ Time Do you have a Healthcare Pow er of Wood Carver? Yes January 26, 2025 4:27pm Living Will Yes November 19, 2024 2:23pm Do you have a Healthcare Pow er of Wood Carver? Yes November 19, 2024 2:23pm Name of Medical Power of Wood Carver Ying [place] November 19, 2024 2:23pm Advance Directives Yes October 11:51am Date Activated Date Inactivated Comments 01/27/2025 6:59 AM 01/29/2025 7:09 PM Question Answer Comments Full Code Order Discussed With: Patient Advance Directive Response Recorded Date/ Time Do you have a Healthcare Pow er of Wood Carver? Yes January 26, 2025 4:27pm Do you have a Healthcare Pow er of Wood Carver? No February 07, 2025 3:54pm Living Will Yes November 19, 2024 2:23pm Do you have a Healthcare Pow er of Wood Carver? Yes November 19, 2024 2:23pm Name of Medical Power of Wood Carver Ying [place] November 19, 2024 2:23pm Advance Directives Yes October 11:51am Advance Directive Response Recorded Date/ Time Do you have a Healthcare Pow er of Wood Carver? Yes January 26, 2025 4:27pm Do you have a Healthcare Pow er of Wood Carver? No February 07, 2025 3:54pm Living Will Yes November 19, 2024 2:23pm Do you have a Healthcare Pow er of Wood Carver? Yes November 19, 2024 2:23pm Name of Medical Power of Wood Carver Ying Trinh November 19, 2024 2:23pm Do you have a Healthcare Pow er of Wood Carver? No March 10, 2025 11:29am Advance Directives Yes October 11:51am Advance Directive Response Recorded Date/ Time Do you have a Healthcare Power of Wood Carver? Yes January 26, 2025 4:27pm Do you have a Healthcare Power of Wood Carver? No February 07, 2025 3:54pm Do you have a Healthcare Power of Wood Carver? Yes April 04, 2025 11:10am Do you have a Healthcare Power of Wood Carver? No March 10, 2025 11:29am Advance Directives Yes October 11:51am Advance Directive Response Recorded Date/ Time Do you have a Healthcare Power of Wood Carver? Yes January 26, 2025 4:27pm Do you have a Healthcare Power of Wood Carver? No February 07, 2025 3:54pm Do you have a Healthcare Power of Wood Carver? Yes April 04, 2025 11:10am Do you have a Healthcare Power of Wood Carver? No March 10, 2025 11:29am Do you have a Healthcare Power of Wood Carver? No April 14, 2025 5:29pm Advance Directives Yes October 11:51am Advance Directive Response Recorded Date/ Time Do you have a Healthcare Power of Wood Carver? Yes January 26, 2025 4:27pm Do you have a Healthcare Power of Wood Carver? No February 07, 2025 3:54pm Do you have a Healthcare Power of Wood Carver? Yes April 04, 2025 11:10am Do you have a Healthcare Power of Wood Carver? No March 10, 2025 11:29am Do you have a Healthcare Power of Wood Carver? No April 15, 2025 12:44pm Advance Directives Yes October 11:51am Date Activated Date Inactivated Comments 04/18/2025 6:18 AM Date Activated Date Inactivated Comments 01/27/2025 6:59 AM 01/29/2025 7:09 PM Question Answer Comments Full Code Order Discussed With: Patient Documents on File Type Date Recorded Patient [place] Reporter Expl anation Advance Directive(s) 05/13/2025 12:02 PM [...] 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 Essential hypertension [...] 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 Essential hypertension [...] 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 Essential hypertension [...] 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 Essential hypertension [...] fat layer exposed Atherosclerotic heart disease of [place] coronary artery without angina pectoris Non-pressure chronic [...] fat layer exposed Atherosclerotic heart disease of [place] coronary artery without angina pectoris Non-pressure chronic [...] for Visit Atherosclerotic hear t disease of [place] coronary artery without angina pectoris Non-pressure chronic [...] with diabetic polyneuropathy Atherosclerotic heart disease of [place] coronary artery without angina pectoris Diabetic foot ulcer [id number] History of partial ray amputation of fifth [...] with diabetic polyneuropathy Atherosclerotic heart disease of [place] coronary artery without angina pectoris Diabetic foot ulcer Obesity (BMI 30-39.9) Type 2 diabetes mellitus with diabetic polyneuropathy [id number] History of partial ray amputation of fifth [...] with diabetic polyneuropathy Atherosclerotic heart disease of [place] coronary artery without angina pectoris Diabetic foot ulcer Obesity (BMI 30-39.9) Type 2 diabetes mellitus with diabetic polyneuropathy [id number] 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 Diabetic foot ulcer Type 2 diabetes mellitus with diabetic polyneuropathy [id number] History of partial ray amputation of fifth [...] with diabetic polyneuropathy Atherosclerotic heart disease of [place] coronary artery without angina pectoris Diabetic foot ulcer Obesity (BMI 30-39.9) Type 2 diabetes mellitus with diabetic polyneuropathy [id number] 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 Diabetic foot ulcer Type 2 diabetes mellitus with diabetic polyneuropathy [id number] History of partial ray amputation of fifth [...] stage 4 (severe) Atherosclerotic heart disease of [place] coronary artery without angina pectoris Chronic renal [...] 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 Diabetic foot ulcer Obesity (BMI 30-39.9) Type 2 diabetes mellitus with diabetic polyneuropathy [id number] 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 Diabetic foot ulcer Type 2 diabetes mellitus with diabetic polyneuropathy [id number] History of partial ray amputation of fifth [...] stage 4 (severe) Atherosclerotic heart disease of [place] coronary artery without angina pectoris Chronic renal failure, stage 4 (severe) Diabetic nephropathy Non-pressure chronic ulcer of other part of left foot with necrosis of bone Other specified peripheral vascular diseases Chief Complaint WOUND/PVD MULTIPLE T OE ULCERS 6 wk FU WOUND/PVD MULTIPLE TOE ULCERS wound wound PREOP wound wound wound E ORDER 2 M FU Reason for Visit [id number] History of partial ray amputation of fifth [...] stage 4 (severe) Atherosclerotic heart disease of [place] coronary artery without angina pectoris Chronic renal [...] 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 Chief Complaint 2 M FU 9 M FU 2.5 M FU E ORDERS Reason for Visit Obesity (BMI 30-39.9 ) Polyneuropathy 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 Chronic renal failure, stage 4 (severe) Hypertension Obesity (BMI 30-39.9) Type 2 diabetes mellitus with hyperglycemia Chief Complaint 2 M FU 9 M FU 2.5 M FU E ORDERS ELEVATED LIVER ENZYMES Reason for Visit Obesity (BMI 30-39.9 ) Polyneuropathy 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 Chronic renal [...] insulin (HCC) Procedures CONSULT TO ENDOCRINOLOGY OFFICE/OUTPATIENT [facility] 60-74 MINUTES Zaida Gaston MD [address] [place] [address] Referral ID Status Reason Start Date Expiration Date Visits Requested Visits Authorized [id number] Pending Review PCP Requested Referral 2 07/31/2023 1 1 Specialty Diagnoses / Procedures Referred By Carloz alarcon Referred To Contact Alana Kent APRN.CNP [address] [place] [address] Referral ID Status Reason Start Date Expiration Date Visits Re quested Visits Authorized [id number] Closed 1 1 Specialty Diagnoses / Procedures Referred By Carloz alarcon Referred To Contact Urology Diagnoses Erectile dysfunction, unspecified erectile dysfunction type Procedures CONSULT TO UROLOGY OFFICE/OUTPATIENT NEW HIGH MDM 60-74 MINUTES Alana Kent APRN.SENIOR NET SOFTWARE DEVELOPER [address] [place] [address] Referral ID Status Reason Start Date Expiration Date Visits Requested Visits Authorized [id number] Authorized PCP Requested Referral 07/15/2023 07/14/2024 1 1 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) Colon cancer screening Type 1 diabetes mellitus on insulin therapy (HCC) Kidney transplant recipient Procedures CONSULT TO GENERAL SURGERY OFFICE/OUTPATIENT NEW HIGH MDM 60 MINUTES 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 APRN.SENIOR NET SOFTWARE DEVELOPER [address] [place] [address] Referral ID Status Reason Start Date Expiration Date Visits Requested Visits Authorized [id number] Authorized PCP Requested Referral 01/22/2024 01/21/2025 1 1 Summary Purpose Additional Source Comments Source Comments (unrecognize d section and content) In the event this informatio n is protected by the Federal Confidentiality of Alcohol and Drug Abuse Patient Records regulations: The Federal rules restrict any use of the information to criminally investigate or prosecute any alcohol or drug abuse patient.[facility] the event this information is protected by the Federal Confidentiality of Alcohol and Drug Abuse Patient Records regulations: The Federal rules restrict any use of the information to criminally investigate or prosecute any alcohol or drug abuse patient.[facility] Hospital[facility] the event this information is protected by the Federal Confidentiality of Alcohol and Drug Abuse Patient Records regulations: The Federal rules restrict any use of the information to criminally investigate or prosecute any alcohol or drug abuse patient.[facility] Hospital[facility] the event this information is protected by the Federal Confidentiality of Alcohol and Drug Abuse Patient Records regulations: The Federal rules restrict any use of the information to criminally investigate or prosecute any alcohol or drug abuse patient.[facility] Hospital[facility] the event this information is protected by the Federal Confidentiality of Alcohol and Drug Abuse Patient Records regulations: The Federal rules restrict any use of the information to criminally investigate or prosecute any alcohol or drug abuse patient.[facility] Hospital[facility] the event this information is protected by the Federal Confidentiality of Alcohol and Drug Abuse Patient Records regulations: The Federal rules restrict any use of the information to criminally investigate or prosecute any alcohol or drug abuse patient.[facility] Hospital[facility] the event this information is protected by the Federal Confidentiality of Alcohol and Drug Abuse Patient Records regulations: The Federal rules restrict any use of the information to criminally investigate or prosecute any alcohol or drug abuse patient.[facility] Hospital[facility] the event this information is protected by the Federal Confidentiality of Alcohol and Drug Abuse Patient Records regulations: The Federal rules restrict any use of the information to criminally investigate or prosecute any alcohol or drug abuse patient.[facility] Hospital[facility] the event this information is protected by the Federal Confidentiality of Alcohol and Drug Abuse Patient Records regulations: The Federal rules restrict any use of the information to criminally investigate or prosecute any alcohol or drug abuse patient.[facility] Hospital[facility] the event this information is protected by the Federal Confidentiality of Alcohol and Drug Abuse Patient Records regulations: The Federal rules restrict any use of the information to criminally investigate or prosecute any alcohol or drug abuse patient.[facility] Hospital[facility] the event this information is protected by the Federal Confidentiality of Alcohol and Drug Abuse Patient Records regulations: The Federal rules restrict any use of the information to criminally investigate or prosecute any alcohol or drug abuse patient.[facility] Hospital[facility] the event this information is protected by the Federal Confidentiality of Alcohol and Drug Abuse Patient Records regulations: The Federal rules restrict any use of the information to criminally investigate or prosecute any alcohol or drug abuse patient.[facility] HospitalIn the event this information is protected by the Federal Confidentiality of Alcohol and Drug Abuse Patient Records regulations: The Federal rules restrict any use of the information to criminally investigate or prosecute any alcohol or drug abuse patient.[facility] HospitalIn the event this information is protected by the Federal Confidentiality of Alcohol and Drug Abuse Patient Records regulations: The Federal rules restrict any use of the information to criminally investigate or prosecute any alcohol or drug abuse patient.[facility] HospitalIn the event this information is protected by the Federal Confidentiality of Alcohol and Drug Abuse Patient Records regulations: The Federal rules restrict any use of the information to criminally investigate or prosecute any alcohol or drug abuse patient.[facility] HospitalIn the event this information is protected by the Federal Confidentiality of Alcohol and Drug Abuse Patient Records regulations: The Federal rules restrict any use of the information to criminally investigate or prosecute any alcohol or drug abuse patient.[facility] HospitalIn the event this information is protected by the Federal Confidentiality of Alcohol and Drug Abuse Patient Records regulations: The Federal rules restrict any use of the information to criminally investigate or prosecute any alcohol or drug abuse patient.[facility] HospitalIn the event this information is protected by the Federal Confidentiality of Alcohol and Drug Abuse Patient Records regulations: The Federal rules restrict any use of the information to criminally investigate or prosecute any alcohol or drug abuse patient.[facility] HospitalIn the event this information is protected by the Federal Confidentiality of Alcohol and Drug Abuse Patient Records regulations: The Federal rules restrict any use of the information to criminally investigate or prosecute any alcohol or drug abuse patient.[facility] [facility]In the event this information is protected by the Federal Confidentiality of Alcohol and Drug Abuse Patient Records regulations: The Federal rules restrict any use of the information to criminally investigate or prosecute any alcohol or drug abuse patient.[facility] HospitalIn the event this information is protected by the Federal Confidentiality of Alcohol and Drug Abuse Patient Records regulations: The Federal rules restrict any use of the information to criminally investigate or prosecute any alcohol or drug abuse patient.[facility] HospitalIn the event this information is protected by the Federal Confidentiality of Alcohol and Drug Abuse Patient Records regulations: The Federal rules restrict any use of the information to criminally investigate or prosecute any alcohol or drug abuse patient.[facility] HospitalIn the event this information is protected by the Federal Confidentiality of Alcohol and Drug Abuse Patient Records regulations: The Federal rules restrict any use of the information to criminally investigate or prosecute any alcohol or drug abuse patient.[facility] HospitalIn the event this information is protected by the Federal Confidentiality of Alcohol and Drug Abuse Patient Records regulations: The Federal rules restrict any use of the information to criminally investigate or prosecute any alcohol or drug abuse patient.[facility] HospitalIn the event this information is protected by the Federal Confidentiality of Alcohol and Drug Abuse Patient Records regulations: The Federal rules restrict any use of the information to criminally investigate or prosecute any alcohol or drug abuse patient.[facility] HospitalIn the event this information is protected by the Federal Confidentiality of Alcohol and Drug Abuse Patient Records regulations: The Federal rules restrict any use of the information to criminally investigate or prosecute any alcohol or drug abuse patient.[facility] HospitalIn the event this information is protected by the Federal Confidentiality of Alcohol and Drug Abuse Patient Records regulations: The Federal rules restrict any use of the information to criminally investigate or prosecute any alcohol or drug abuse patient.[facility] HospitalIn the event this information is protected by the Federal Confidentiality of Alcohol and Drug Abuse Patient Records regulations: The Federal rules restrict any use of the information to criminally investigate or prosecute any alcohol or drug abuse patient.[facility] HospitalIn the event this information is protected by the Federal Confidentiality of Alcohol and Drug Abuse Patient Records regulations: The Federal rules restrict any use of the information to criminally investigate or prosecute any alcohol or drug abuse patient.[facility] HospitalIn the event this information is protected by the Federal Confidentiality of Alcohol and Drug Abuse Patient Records regulations: The Federal rules restrict any use of the information to criminally investigate or prosecute any alcohol or drug abuse patient.[facility] HospitalIn the event this information is protected by the Federal Confidentiality of Alcohol and Drug Abuse Patient Records regulations: The Federal rules restrict any use of the information to criminally investigate or prosecute any alcohol or drug abuse patient.[facility] HospitalIn the event this information is protected by the Federal Confidentiality of Alcohol and Drug Abuse Patient Records regulations: The Federal rules restrict any use of the information to criminally investigate or prosecute any alcohol or drug abuse patient.[facility] HospitalIn the event this information is protected by the Federal Confidentiality of Alcohol and Drug Abuse Patient Records regulations: The Federal rules restrict any use of the information to criminally investigate or prosecute any alcohol or drug abuse patient.[facility] HospitalIn the event this information is protected by the Federal Confidentiality of Alcohol and Drug Abuse Patient Records regulations: The Federal rules restrict any use of the information to criminally investigate or prosecute any alcohol or drug abuse patient.[facility] HospitalIn the event this information is protected by the Federal Confidentiality of Alcohol and Drug Abuse Patient Records regulations: The Federal rules restrict any use of the information to criminally investigate or prosecute any alcohol or drug abuse patient.[facility] HospitalIn the event this information is protected by the Federal Confidentiality of Alcohol and Drug Abuse Patient Records regulations: The Federal rules restrict any use of the information to criminally investigate or prosecute any alcohol or drug abuse patient.[facility] HospitalIn the event this information is protected by the Federal Confidentiality of Alcohol and Drug Abuse Patient Records regulations: The Federal rules restrict any use of the information to criminally investigate or prosecute any alcohol or drug abuse patient.[facility] HospitalIn the event this information is protected by the Federal Confidentiality of Alcohol and Drug Abuse Patient Records regulations: The Federal rules restrict any use of the information to criminally investigate or prosecute any alcohol or drug abuse patient.[facility] HospitalIn the event this information is protected by the Federal Confidentiality of Alcohol and Drug Abuse Patient Records regulations: The Federal rules restrict any use of the information to criminally investigate or prosecute any alcohol or drug abuse patient.[facility] HospitalIn the event this information is protected by the Federal Confidentiality of Alcohol and Drug Abuse Patient Records regulations: The Federal rules restrict any use of the information to criminally investigate or prosecute any alcohol or drug abuse patient.[facility] HospitalIn the event this information is protected by the Federal Confidentiality of Alcohol and Drug Abuse Patient Records regulations: The Federal rules restrict any use of the information to criminally investigate or prosecute any alcohol or drug abuse patient.[facility] HospitalIn the event this information is protected by the Federal Confidentiality of Alcohol and Drug Abuse Patient Records regulations: The Federal rules restrict any use of the information to criminally investigate or prosecute any alcohol or drug abuse patient.[facility] HospitalIn the event this information is protected by the Federal Confidentiality of Alcohol and Drug Abuse Patient Records regulations: The Federal rules restrict any use of the information to criminally investigate or prosecute any alcohol or drug abuse patient.[facility] HospitalIn the event this information is protected by the Federal Confidentiality of Alcohol and Drug Abuse Patient Records regulations: The Federal rules restrict any use of the information to criminally investigate or prosecute any alcohol or drug abuse patient.[facility] HospitalIn the event this information is protected by the Federal Confidentiality of Alcohol and Drug Abuse Patient Records regulations: The Federal rules restrict any use of the information to criminally investigate or prosecute any alcohol or drug abuse patient.[facility] HospitalIn the event this information is protected by the Federal Confidentiality of Alcohol and Drug Abuse Patient Records regulations: The Federal rules restrict any use of the information to criminally investigate or prosecute any alcohol or drug abuse patient.[facility] HospitalIn the event this information is protected by the Federal Confidentiality of Alcohol and Drug Abuse Patient Records regulations: The Federal rules restrict any use of the information to criminally investigate or prosecute any alcohol or drug abuse patient.[facility] HospitalIn the event this information is protected by the Federal Confidentiality of Alcohol and Drug Abuse Patient Records regulations: The Federal rules restrict any use of the information to criminally investigate or prosecute any alcohol or drug abuse patient.[facility] HospitalIn the event this information is protected by the Federal Confidentiality of Alcohol and Drug Abuse Patient Records regulations: The Federal rules restrict any use of the information to criminally investigate or prosecute any alcohol or drug abuse patient.[facility] HospitalIn the event this information is protected by the Federal Confidentiality of Alcohol and Drug Abuse Patient Records regulations: The Federal rules restrict any use of the information to criminally investigate or prosecute any alcohol or drug abuse patient.[facility] HospitalIn the event this information is protected by the Federal Confidentiality of Alcohol and Drug Abuse Patient Records regulations: The Federal rules restrict any use of the information to criminally investigate or prosecute any alcohol or drug abuse patient.[facility] HospitalIn the event this information is protected by the Federal Confidentiality of Alcohol and Drug Abuse Patient Records regulations: The Federal rules restrict any use of the information to criminally investigate or prosecute any alcohol or drug abuse patient.[facility] HospitalIn the event this information is protected by the Federal Confidentiality of Alcohol and Drug Abuse Patient Records regulations: The Federal rules restrict any use of the information to criminally investigate or prosecute any alcohol or drug abuse patient.[facility] HospitalIn the event this information is protected by the Federal Confidentiality of Alcohol and Drug Abuse Patient Records regulations: The Federal rules restrict any use of the information to criminally investigate or prosecute any alcohol or drug abuse patient.[facility] HospitalIn the event this information is protected by the Federal Confidentiality of Alcohol and Drug Abuse Patient Records regulations: The Federal rules restrict any use of the information to criminally investigate or prosecute any alcohol or drug abuse patient.[facility] HospitalIn the event this information is protected by the Federal Confidentiality of Alcohol and Drug Abuse Patient Records regulations: The Federal rules restrict any use of the information to criminally investigate or prosecute any alcohol or drug abuse patient.[facility] HospitalIn the event this information is protected by the Federal Confidentiality of Alcohol and Drug Abuse Patient Records regulations: The Federal rules restrict any use of the information to criminally investigate or prosecute any alcohol or drug abuse patient.[facility] HospitalIn the event this information is protected by the Federal Confidentiality of Alcohol and Drug Abuse Patient Records regulations: The Federal rules restrict any use of the information to criminally investigate or prosecute any alcohol or drug abuse patient.[facility] HospitalIn the event this information is protected by the Federal Confidentiality of Alcohol and Drug Abuse Patient Records regulations: The Federal rules restrict any use of the information to criminally investigate or prosecute any alcohol or drug abuse patient.[facility] HospitalIn the event this information is protected by the Federal Confidentiality of Alcohol and Drug Abuse Patient Records regulations: The Federal rules restrict any use of the information to criminally investigate or prosecute any alcohol or drug abuse patient.[facility] HospitalIn the event this information is protected by the Federal Confidentiality of Alcohol and Drug Abuse Patient Records regulations: The Federal rules restrict any use of the information to criminally investigate or prosecute any alcohol or drug abuse patient.[facility] HospitalIn the event this information is protected by the Federal Confidentiality of Alcohol and Drug Abuse Patient Records regulations: The Federal rules restrict any use of the information to criminally investigate or prosecute any alcohol or drug abuse patient.[facility] HospitalIn the event this information is protected by the Federal Confidentiality of Alcohol and Drug Abuse Patient Records regulations: The Federal rules restrict any use of the information to criminally investigate or prosecute any alcohol or drug abuse patient.[facility] HospitalIn the event this information is protected by the Federal Confidentiality of Alcohol and Drug Abuse Patient Records regulations: The Federal rules restrict any use of the information to criminally investigate or prosecute any alcohol or drug abuse patient.[facility] HospitalIn the event this information is protected by the Federal Confidentiality of Alcohol and Drug Abuse Patient Records regulations: The Federal rules restrict any use of the information to criminally investigate or prosecute any alcohol or drug abuse patient.[facility] HospitalIn the event this information is protected by the Federal Confidentiality of Alcohol and Drug Abuse Patient Records regulations: The Federal rules restrict any use of the information to criminally investigate or prosecute any alcohol or drug abuse patient.[facility] HospitalIn the event this information is protected by the Federal Confidentiality of Alcohol and Drug Abuse Patient Records regulations: The Federal rules restrict any use of the information to criminally investigate or prosecute any alcohol or drug abuse patient.[facility] HospitalIn the event this information is protected by the Federal Confidentiality of Alcohol and Drug Abuse Patient Records regulations: The Federal rules restrict any use of the information to criminally investigate or prosecute any alcohol or drug abuse patient.[facility]In the event this information is protected by the Federal Confidentiality of Alcohol and Drug Abuse Patient Records regulations: The Federal rules restrict any use of the information to criminally investigate or prosecute any alcohol or drug abuse patient.[facility] HospitalIn the event this information is protected by the Federal Confidentiality of Alcohol and Drug Abuse Patient Records regulations: The Federal rules restrict any use of the information to criminally investigate or prosecute any alcohol or drug abuse patient.[facility]In the event this information is protected by the Federal Confidentiality of Alcohol and Drug Abuse Patient Records regulations: The Federal rules restrict any use of the information to criminally investigate or prosecute any alcohol or drug abuse patient.[facility]In the event this information is protected by the Federal Confidentiality of Alcohol and Drug Abuse Patient Records regulations: The Federal rules restrict any use of the information to criminally investigate or prosecute any alcohol or drug abuse patient.[facility]In the event this information is protected by the Federal Confidentiality of Alcohol and Drug Abuse Patient Records regulations: The Federal rules restrict any use of the information to criminally investigate or prosecute any alcohol or drug abuse patient.[facility]In the event this information is protected by the Federal Confidentiality of Alcohol and Drug Abuse Patient Records regulations: The Federal rules restrict any use of the information to criminally investigate or prosecute any alcohol or drug abuse patient.[facility]In the event this information is protected by the Federal Confidentiality of Alcohol and Drug Abuse Patient Records regulations: The Federal rules restrict any use of the information to criminally investigate or prosecute any alcohol or drug abuse patient.[facility]In the event this information is protected by the Federal Confidentiality of Alcohol and Drug Abuse Patient Records regulations: The Federal rules restrict any use of the information to criminally investigate or prosecute any alcohol or drug abuse patient.[facility]In the event this information is protected by the Federal Confidentiality of Alcohol and Drug Abuse Patient Records regulations: The Federal rules restrict any use of the information to criminally investigate or prosecute any alcohol or drug abuse patient.[facility]In the event this information is protected by the Federal Confidentiality of Alcohol and Drug Abuse Patient Records regulations: The Federal rules restrict any use of the information to criminally investigate or prosecute any alcohol or drug abuse patient.[facility]In the event this information is protected by the Federal Confidentiality of Alcohol and Drug Abuse Patient Records regulations: The Federal rules restrict any use of the information to criminally investigate or prosecute any alcohol or drug abuse patient.[facility]In the event this information is protected by the Federal Confidentiality of Alcohol and Drug Abuse Patient Records regulations: The Federal rules restrict any use of the information to criminally investigate or prosecute any alcohol or drug abuse patient.[facility]In the event this information is protected by the Federal Confidentiality of Alcohol and Drug Abuse Patient Records regulations: The Federal rules restrict any use of the information to criminally investigate or prosecute any alcohol or drug abuse patient.[facility] HospitalIn the event this information is protected by the Federal Confidentiality of Alcohol and Drug Abuse Patient Records regulations: The Federal rules restrict any use of the information to criminally investigate or prosecute any alcohol or drug abuse patient.[facility]In the event this information is protected by the Federal Confidentiality of Alcohol and Drug Abuse Patient Records regulations: The Federal rules restrict any use of the information to criminally investigate or prosecute any alcohol or drug abuse patient.[facility]In the event this information is protected by the Federal Confidentiality of Alcohol and Drug Abuse Patient Records regulations: The Federal rules restrict any use of the information to criminally investigate or prosecute any alcohol or drug abuse patient.[facility]In the event this information is protected by the Federal Confidentiality of Alcohol and Drug Abuse Patient Records regulations: The Federal rules restrict any use of the information to criminally investigate or prosecute any alcohol or drug abuse patient.[facility]In the event this information is protected by the Federal Confidentiality of Alcohol and Drug Abuse Patient Records regulations: The Federal rules restrict any use of the information to criminally investigate or prosecute any alcohol or drug abuse patient.[facility]In the event this information is protected by the Federal Confidentiality of Alcohol and Drug Abuse Patient Records regulations: The Federal rules restrict any use of the information to criminally investigate or prosecute any alcohol or drug abuse patient.[facility]In the event this information is protected by the Federal Confidentiality of Alcohol and Drug Abuse Patient Records regulations: The Federal rules restrict any use of the information to criminally investigate or prosecute any alcohol or drug abuse patient.[facility]In the event this information is protected by the Federal Confidentiality of Alcohol and Drug Abuse Patient Records regulations: The Federal rules restrict any use of the information to criminally investigate or prosecute any alcohol or drug abuse patient.[facility]In the event this information is protected by the Federal Confidentiality of Alcohol and Drug Abuse Patient Records regulations: The Federal rules restrict any use of the information to criminally investigate or prosecute any alcohol or drug abuse patient.[facility]In the event this information is protected by the Federal Confidentiality of Alcohol and Drug Abuse Patient Records regulations: The Federal rules restrict any use of the information to criminally investigate or prosecute any alcohol or drug abuse patient.[facility]In the event this information is protected by the Federal Confidentiality of Alcohol and Drug Abuse Patient Records regulations: The Federal rules restrict any use of the information to criminally investigate or prosecute any alcohol or drug abuse patient.[facility]In the event this information is protected by the Federal Confidentiality of Alcohol and Drug Abuse Patient Records regulations: The Federal rules restrict any use of the information to criminally investigate or prosecute any alcohol or drug abuse patient.[facility]In the event this information is protected by the Federal Confidentiality of Alcohol and Drug Abuse Patient Records regulations: The Federal rules restrict any use of the information to criminally investigate or prosecute any alcohol or drug abuse patient.[facility]In the event this information is protected by the Federal Confidentiality of Alcohol and Drug Abuse Patient Records regulations: The Federal rules restrict any use of the information to criminally investigate or prosecute any alcohol or drug abuse patient.[facility]In the event this information is protected by the Federal Confidentiality of Alcohol and Drug Abuse Patient Records regulations: The Federal rules restrict any use of the information to criminally investigate or prosecute any alcohol or drug abuse patient.[facility]In the event this information is protected by the Federal Confidentiality of Alcohol and Drug Abuse Patient Records regulations: The Federal rules restrict any use of the information to criminally investigate or prosecute any alcohol or drug abuse patient.[facility]In the event this information is protected by the Federal Confidentiality of Alcohol and Drug Abuse Patient Records regulations: The Federal rules restrict any use of the information to criminally investigate or prosecute any alcohol or drug abuse patient.[facility]In the event this information is protected by the Federal Confidentiality of Alcohol and Drug Abuse Patient Records regulations: The Federal rules restrict any use of the information to criminally investigate or prosecute any alcohol or drug abuse patient.[facility]In the event this information is protected by the Federal Confidentiality of Alcohol and Drug Abuse Patient Records regulations: The Federal rules restrict any use of the information to criminally investigate or prosecute any alcohol or drug abuse patient.[facility] HospitalIn the event this information is protected by the Federal Confidentiality of Alcohol and Drug Abuse Patient Records regulations: The Federal rules restrict any use of the information to criminally investigate or prosecute any alcohol or drug abuse patient.[facility] HospitalIn the event this information is protected by the Federal Confidentiality of Alcohol and Drug Abuse Patient Records regulations: The Federal rules restrict any use of the information to criminally investigate or prosecute any alcohol or drug abuse patient.[facility] HospitalIn the event this information is protected by the Federal Confidentiality of Alcohol and Drug Abuse Patient Records regulations: The Federal rules restrict any use of the information to criminally investigate or prosecute any alcohol or drug abuse patient.[facility] HospitalIn the event this information is protected by the Federal Confidentiality of Alcohol and Drug Abuse Patient Records regulations: The Federal rules restrict any use of the information to criminally investigate or prosecute any alcohol or drug abuse patient.[facility] HospitalIn the event this information is protected by the Federal Confidentiality of Alcohol and Drug Abuse Patient Records regulations: The Federal rules restrict any use of the information to criminally investigate or prosecute any alcohol or drug abuse patient.[facility] HospitalIn the event this information is protected by the Federal Confidentiality of Alcohol and Drug Abuse Patient Records regulations: The Federal rules restrict any use of the information to criminally investigate or prosecute any alcohol or drug abuse patient.[facility] HospitalIn the event this information is protected by the Federal Confidentiality of Alcohol and Drug Abuse Patient Records regulations: The Federal rules restrict any use of the information to criminally investigate or prosecute any alcohol or drug abuse patient.[facility] HospitalIn the event this information is protected by the Federal Confidentiality of Alcohol and Drug Abuse Patient Records regulations: The Federal rules restrict any use of the information to criminally investigate or prosecute any alcohol or drug abuse patient.[facility] HospitalIn the event this information is protected by the Federal Confidentiality of Alcohol and Drug Abuse Patient Records regulations: The Federal rules restrict any use of the information to criminally investigate or prosecute any alcohol or drug abuse patient.[facility] HospitalIn the event this information is protected by the Federal Confidentiality of Alcohol and Drug Abuse Patient Records regulations: The Federal rules restrict any use of the information to criminally investigate or prosecute any alcohol or drug abuse patient.[facility] HospitalIn the event this information is protected by the Federal Confidentiality of Alcohol and Drug Abuse Patient Records regulations: The Federal rules restrict any use of the information to criminally investigate or prosecute any alcohol or drug abuse patient.[facility] HospitalIn the event this information is protected by the Federal Confidentiality of Alcohol and Drug Abuse Patient Records regulations: The Federal rules restrict any use of the information to criminally investigate or prosecute any alcohol or drug abuse patient.[facility] HospitalIn the event this information is protected by the Federal Confidentiality of Alcohol and Drug Abuse Patient Records regulations: The Federal rules restrict any use of the information to criminally investigate or prosecute any alcohol or drug abuse patient.[facility] HospitalIn the event this information is protected by the Federal Confidentiality of Alcohol and Drug Abuse Patient Records regulations: The Federal rules restrict any use of the information to criminally investigate or prosecute any alcohol or drug abuse patient.[facility] HospitalIn the event this information is protected by the Federal Confidentiality of Alcohol and Drug Abuse Patient Records regulations: The Federal rules restrict any use of the information to criminally investigate or prosecute any alcohol or drug abuse patient.[facility] Reason for Visit (unrecogniz ed section and content) Reason Comments Renal Txp Follow Up Reason Comments Research IRB# [id number] Reason Comments Refill Request Reason Comments Refill [...] Date Comments Refill Request 07/19/2022 Reason Comments [facility] requesting lab results Reason Comments Release [...] NEW HIGH MDM 60-74 MINUTES Alana Kent APRN.SENIOR NET SOFTWARE DEVELOPER [address] [place] [address] Referral ID Status Reason Start Date Expiration Date V isits Requested Visits Authorized [id number] Closed PCP Requested Referral 07/15/2023 07/14/2024 1 [...] NEW HIGH MDM 60 MINUTES 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 APRN.SENIOR NET SOFTWARE DEVELOPER [address] [place] [address] Referral ID Status Reason Start Date Expiration Date V isits Requested Visits Authorized [id number] Closed PCP Requested Referral 01/22/2024 01/21/2025 1 1 Reason Comments Medication Problem Reason Comments Patient Update Request for new Dexcom Reason Comments Recheck Reason Onset Date Comments Population Health Navigation Outreach 07/13/2024 [facility] Reason Onset Date Comments Refill Request 07/13/2024 Reason Onset Date Comments Refill Request 07/31/2024 Reason Onset Date Comments Population Health Navigation Outreach 09/08/2024 [facility] Reason Comments Transition Of Care Reason Comments ER F/U [facility] 01/27/25-01/31/25 oliguric acute kidney injury and flank pain Reason Comments Missed Appointment Primary care resched ule Reason Comments IR Outpatient Tube Appointment Request Reason Comments Retread Technician - Other Reason Comments New Patient Specialty Diagnoses / Procedures Referred By Contac t Referred To Contact Diagnoses Pyelonephritis Procedures N/A [facility] [address] [place] [address] Referral ID Status Reason Start Date Expiration Date Visits Re quested Visits Authorized [id number] 1 1 Care Teams (unrecognized sec tion and content) Window Installer Relationship Specialty Start Date End Date Zaida Gaston MD [address] [facility] [place] [address] PCP - General Internal Medicine 04/26/16 Loida Montiel I, DO [address] [facility] [address] [place] [address] Specialty Concert Or Lecture Hall Manager Nephrology 06/11/18 Heena Adams [address] [facility] [address] [place] [address] Specialty Concert Or Lecture Hall Manager Endocrinology 06/11/18 Satish Phan MD [address] [facility] [place] [place] [address] Specialty Concert Or Lecture Hall Manager General Surgery 07/25/18 Window Installer Relationship Specialty Start Date End Date Zaida Gaston MD [address] [facility] [place] [address] PCP - General Internal Medicine 04/26/16 Loida Montiel I, DO [address] [facility] [address] [place] [address] Specialty Concert Or Lecture Hall Manager Nephrology 06/11/18 Heena Adams [address] [facility] [address] [place] [address] Specialty Concert Or Lecture Hall Manager Endocrinology 06/11/18 Satish Phan MD [address] [facility] [place] [address] Specialty Concert Or Lecture Hall Manager General Surgery 07/25/18 Window Installer Relationship Specialty Start Date End Date Zaida Gaston MD [address] [facility] [place] [address] PCP - General Internal Medicine 04/26/16 Loida Montiel I, DO [address] [place] [address] [place] [address] Specialty Concert Or Lecture Hall Manager Nephrology 06/11/18 Heena Adams [address] [facility] [address] [place] [address] Specialty Concert Or Lecture Hall Manager Endocrinology 06/11/18 Satish Phan MD [address] [place] [address] Specialty Concert Or Lecture Hall Manager General Surgery 07/25/18 Window Installer Relationship Specialty Start Date End Date Zaida Gaston MD [address] [facility] [place] [place] [address] PCP - General Internal Medicine 04/26/16 Loida Montiel I, DO [address] [facility] [address] [place] [address] Specialty Concert Or Lecture Hall Manager Nephrology 06/11/18 Heena Adams [address] [facility] [address] [place] [address] Specialty Concert Or Lecture Hall Manager Endocrinology 06/11/18 Satish Phan MD [address] [facility] [place] [address] Specialty Concert Or Lecture Hall Manager General Surgery 07/25/18 Window Installer Relationship Specialty Start Date End Date Zaida Gaston MD [address] [facility] [place] [address] PCP - General Internal Medicine 04/26/16 Loida Montiel I, DO [address] [place] [address] [place] [address] Specialty Concert Or Lecture Hall Manager Nephrology 06/11/18 Heena Adams [address] [facility] [address] [place] [address] Specialty Concert Or Lecture Hall Manager Endocrinology 06/11/18 Satish Phan MD [address] [place] [address] Specialty Concert Or Lecture Hall Manager General Surgery 07/25/18 Window Installer Relationship Specialty Start Date End Date Zaida Gaston MD [address] [facility] [place] [address] PCP - General Internal Medicine 04/26/16 Loida Montiel I, DO [address] [facility] [address] [place] [address] Specialty Concert Or Lecture Hall Manager Nephrology 06/11/18 Heena Adams [address] [facility] [address] [place] [address] Specialty Concert Or Lecture Hall Manager Endocrinology 06/11/18 Satish Phan MD [address] [facility] [place] [address] Specialty Concert Or Lecture Hall Manager General Surgery 07/25/18 Window Installer Relationship Specialty Start Date End Date Zaida Gaston MD [address] [facility] [place] [address] PCP - General Internal Medicine 04/26/16 Loida Montiel I, DO [address] [facility] [address] [place] [address] Specialty Concert Or Lecture Hall Manager Nephrology 06/11/18 Heena Adams [address] [facility] [address] [place] [address] Specialty Concert Or Lecture Hall Manager Endocrinology 06/11/18 Satish Phan MD [address] [facility] [place] [address] Specialty Concert Or Lecture Hall Manager General Surgery 07/25/18 Window Installer Relationship Specialty Start Date End Date Zaida Gaston MD [address] [facility] [place] [address] PCP - General Internal Medicine 04/26/16 Loida Montiel I, DO [address] [place] [address] [place] [address] Specialty Concert Or Lecture Hall Manager Nephrology 06/11/18 Heena Admas [address] [facility] [address] [place] [address] Specialty Concert Or Lecture Hall Manager Endocrinology 06/11/18 Satish Phan MD [address] [facility] [place] [address] Specialty Concert Or Lecture Hall Manager General Surgery 07/25/18 Window Installer Relationship Specialty Start Date End Date Zaida Gaston MD [address] [facility] [place] [address] PCP - General Internal Medicine 04/26/16 Loida Montiel I, [address] [place] [address] [place] [address] Specialty Concert Or Lecture Hall Manager Nephrology 06/11/18 Heena Adams [address] [facility] [address] [place] [address] Specialty Concert Or Lecture Hall Manager Endocrinology 06/11/18 Satish Phan MD [address] [place] [address] Specialty Concert Or Lecture Hall Manager General Surgery 07/25/18 Window Installer Relationship Specialty Start Date End Date Zaida Gaston MD [address] [facility] [place] [address] PCP - General Internal Medicine 04/26/16 Loida Montiel I, DO [address] [facility] [address] [place] [address] Specialty Concert Or Lecture Hall Manager Nephrology 06/11/18 Heena Adams [address] [facility] [address] [place] [address] Specialty Concert Or Lecture Hall Manager Endocrinology 06/11/18 Satish Phan MD [address] [place] [address] Specialty Concert Or Lecture Hall Manager General Surgery 07/25/18 Window Installer Relationship Specialty Start Date End Date Zaida Gaston MD [address] [facility] [place] [address] PCP - General Internal Medicine 04/26/16 Loida Montiel I, DO [address] [facility] [address] [place] [address] Specialty Concert Or Lecture Hall Manager Nephrology 06/11/18 Heena Adams [address] [facility] [address] [place] [address] Specialty Concert Or Lecture Hall Manager Endocrinology 06/11/18 Satish Phan MD [address] [facility] [place] [address] Specialty Concert Or Lecture Hall Manager General Surgery 07/25/18 MarstellerVerna, [facility] [address] [place] [address] Pharmacist Pharmacy 08/23/22 Window Installer Relationship Specialty Start Date End Date Zaida Gaston MD [address] [facility] [place] [address] PCP - General Internal Medicine 04/26/16 Loida Montiel I, DO [address] [facility] [address] [place] [address] Specialty Concert Or Lecture Hall Manager Nephrology 06/11/18 Heena Adams [address] [facility] [address] [place] [address] Specialty Concert Or Lecture Hall Manager Endocrinology 06/11/18 Satish Phan MD [address] [facility] [place] [place] [address] Specialty Concert Or Lecture Hall Manager General Surgery 07/25/18 [place]ellerBrendaVernaMary [place] [address] [place] [address] Pharmacist Pharmacy 08/23/22 Window Installer Relationship Specialty Start Date End Date Zaida Gaston MD [address] [facility] [place] [address] PCP - General Internal Medicine 04/26/16 Loida Montiel I, DO [address] [place] [address] Specialty Concert Or Lecture Hall Manager Nephrology 06/11/18 Heena Adams [address] [facility] [address] [place] [address] Specialty Concert Or Lecture Hall Manager Endocrinology 06/11/18 Satish Phan MD [address] [facility] [place] [place] [address] Specialty Concert Or Lecture Hall Manager General Surgery 07/25/18 [place]ellerBrendaVernaMary [place] [address] [place] [address] Pharmacist Pharmacy 08/23/22 Window Installer Relationship Specialty Start Date End Date Zaida Gaston MD [address] [facility] [place] [address] PCP - General Internal Medicine 04/26/16 Loida Montiel I, DO [address] [place] [address] Specialty Concert Or Lecture Hall Manager Nephrology 06/11/18 Heena Adams [address] [facility] [address] [place] [address] Specialty Concert Or Lecture Hall Manager Endocrinology 06/11/18 Satish Phan MD [address] [facility] [place] [place] [address] Specialty Concert Or Lecture Hall Manager General Surgery 07/25/18 Marsteller [facility] [address] [place] [address] Pharmacist Pharmacy 08/23/22 Window Installer Relationship Specialty Start Date End Date Zaida Gaston MD [address] [facility] [place] [address] PCP - General Internal Medicine 04/26/16 Loida Montiel I, DO [address] [place] [address] Specialty Concert Or Lecture Hall Manager Nephrology 06/11/18 Heena Adams [address] [facility] [address] [place] [address] Specialty Concert Or Lecture Hall Manager Endocrinology 06/11/18 Satish Phan MD [address] [facility] [place] [place] [address] Specialty Concert Or Lecture Hall Manager General Surgery 07/25/18 Mey [facility] [address] [place] [address] Pharmacist Pharmacy 08/23/22 Window Installer Relationship Specialty Start Date End Date Zaida Gaston MD [address] [facility] [place] [address] PCP - General Internal Medicine 04/26/16 Loida Montiel I, DO [address] [place] [address] [place] [address] Specialty Concert Or Lecture Hall Manager Nephrology 06/11/18 Heena Adams [address] [place] [place] [address] Specialty Concert Or Lecture Hall Manager Endocrinology 06/11/18 Satish Phan MD [address] [place] [address] Specialty Concert Or Lecture Hall Manager General Surgery 07/25/18 [facility] [address] [place] [address] Pharmacist Pharmacy 08/23/22 Team Status: [...] Medina DPM Other Provider Active Suzanne Cornelius RATE AND COST ANALYST, RATE AND COST ANALYST-C Attending Provider, Referri ng Provider Active Team Status: Active Member Role Status Dates Dr. Zaida Gaston MD Primary Care Provider Active Dr. Dona Medina DPM Other Provider Active Jenna Bedoya RATE AND COST ANALYST, RATE AND COST ANALYST-C Attending Provider, Referrin g Provider Active Team [...] MD Attending Provider, Emergency Pr ovider Active Window Installer Relationship Specialty Start Date End Date Zaida Gaston MD [address] [facility] [place] [address] PCP - General Internal Medicine 04/26/16 Loida Montiel I, DO [address] [place] [place], [place] [address] Specialty Concert Or Lecture Hall Manager Nephrology 06/11/18 Heena Adams [address] [facility] [place] [address] [place] [address] Specialty Concert Or Lecture Hall Manager Endocrinology 06/11/18 Satish Phan MD [address] [place], [place] [address] Specialty Concert Or Lecture Hall Manager General Surgery 07/25/18 Verna Jensen, [facility] [address] [place] [address] Pharmacist Pharmacy 08/23/22 Team Status: Active Member [...] Martínez MD Other Provider Active Vivian Garrison RATE AND COST ANALYST, RATE AND COST ANALYST-C Other Provider Active John Funes RATE AND COST ANALYST, RATE AND COST ANALYST-C Other Provider Active Faviola Josue PA Other [...] Martínez MD Other Provider Active Vivian Garrison RATE AND COST ANALYST, RATE AND COST ANALYST-C Other Provider Active John Funes RATE AND COST ANALYST, RATE AND COST ANALYST-C Other Provider Active Faviola Josue PA Other [...] Martínez MD Other Provider Active Vivian Garrison RATE AND COST ANALYST, RATE AND COST ANALYST-C Other Provider Active John Funes RATE AND COST ANALYST, RATE AND COST ANALYST-C Other Provider Active Faviola Josue PA Other [...] Martínez MD Other Provider Active Vivian Garrison RATE AND COST ANALYST, RATE AND COST ANALYST-C Other Provider Active John Funes RATE AND COST ANALYST, RATE AND COST ANALYST-C Other Provider Active AJ Julio Other Provider Active Dr. Satish Nava MD Other Provider Active Window Installer Relationship Specialty Start Date End Date Zaida Gaston MD [address] [facility] [place] [address] PCP - General Internal Medicine 04/26/16 Loida Montiel I, DO [address] [facility] [address] [place] [address] Specialty Concert Or Lecture Hall Manager Nephrology 06/11/18 Heena Adams [address] [facility] [address] [place] [address] Specialty Concert Or Lecture Hall Manager Endocrinology 06/11/18 Satish Phan MD [address] [facility] [place] [place] [address] Specialty Concert Or Lecture Hall Manager General Surgery 07/25/18 MarstellerVerna, [facility] [address] [place] [address] Pharmacist Pharmacy 08/23/22 Window Installer Relationship Specialty Start Date End Date Zaida Gaston MD [address] [facility] [place] [address] PCP - General Internal Medicine 04/26/16 Loida Montiel I, DO [address] [place] [address] Specialty Concert Or Lecture Hall Manager Nephrology 06/11/18 Heena Adams [address] [facility] [address] [place] [address] Specialty Concert Or Lecture Hall Manager Endocrinology 06/11/18 Satish Phan MD [address] [facility] [place] [place] [address] Specialty Concert Or Lecture Hall Manager General Surgery 07/25/18 Window Installer Relationship Specialty Start Date End Date Zaida Gaston MD [address] [facility] [place] [address] PCP - General Internal Medicine 04/26/16 Loida Montiel I, DO [address] [place] [address] Specialty Concert Or Lecture Hall Manager Nephrology 06/11/18 Heena Adams [address] [facility] [address] [place] [address] Specialty Concert Or Lecture Hall Manager Endocrinology 06/11/18 Satish Phan MD [address] [place] [address] Specialty Concert Or Lecture Hall Manager General Surgery 07/25/18 Window Installer Relationship Specialty Start Date End Date Zaida Gaston MD [address] [facility] [place] [address] PCP - General Internal Medicine 04/26/16 Loida Montiel I, DO [address] [place] [address] Specialty Concert Or Lecture Hall Manager Nephrology 06/11/18 Heena Adams [address] [facility] [address] [place] [address] Specialty Concert Or Lecture Hall Manager Endocrinology 06/11/18 Satish Phan MD [address] [place] [address] Specialty Concert Or Lecture Hall Manager General Surgery 07/25/18 Window Installer Relationship Specialty Start Date End Date Zaida Gaston MD [address] [facility] [place] [address] PCP - General Internal Medicine 04/26/16 Loida Montiel I, DO [address] [place] [address] [place] [address] Specialty Concert Or Lecture Hall Manager Nephrology 06/11/18 Heena Adams J [address] [facility] [address] [place] [address] Specialty Concert Or Lecture Hall Manager Endocrinology 06/11/18 Satish Phan MD [address] [place] [address] Specialty Concert Or Lecture Hall Manager General Surgery 07/25/18 Team Status: Active Member Role Status Dates Dr. Zaida Gaston MD Primary Care Provider Active Dr. Tylor Rudd MD Attending Provider Active Dr. Mayo Levy DPM Referring Provider Active Team Status: Inactive Member Role Status Dates Dr. Zaiad Gaston MD Primary Care Provider Active Conchis Meza NP-C Attending Provider, Referring Pr ovider Active Window Installer Relationship Specialty Start Date End Date Zaida Gaston MD [address] [facility] [place] [place] [address] PCP - General Internal Medicine 04/26/16 Loida Montiel I, DO [address] [place] [address] Specialty Concert Or Lecture Hall Manager Nephrology 06/11/18 Heena Adams [address] [facility] [address] [place] [address] Specialty Concert Or Lecture Hall Manager Endocrinology 06/11/18 Satish Phan MD [address] [place] [address] Specialty Concert Or Lecture Hall Manager General Surgery 07/25/18 Window Installer Relationship Specialty Start Date End Date Zaida Gaston MD [address] [facility] [place] [place] [address] PCP - General Internal Medicine 04/26/16 Loiad Montiel I, DO [address] [place] [address] [place] [address] Specialty Concert Or Lecture Hall Manager Nephrology 06/11/18 Heena Adams J [address] [facility] [address] [place] [address] Specialty Concert Or Lecture Hall Manager Endocrinology 06/11/18 Satish Phan MD [address] [place] [address] Specialty Concert Or Lecture Hall Manager General Surgery 07/25/18 Team Status: Inactive Member Role Status Dates Dr. Zaida Gaston MD Primary Care Provider, Referring Provider Active Yissel Willis NP, RATE AND COST ANALYST-C Attending Provider Active Team Status: Inactive Member Role Status Dates Dr. Zaida Gaston MD Primary Care Provider Active Dr. Loi Saldana DO Emergency Provider Active Window Installer Relationship Specialty Start Date End Date Zaida Gaston MD [address] [facility] [place] [place] [address] PCP - General Internal Medicine 04/26/16 Loida Montiel I, DO [address] [facility] [address] [place] [address] Specialty Concert Or Lecture Hall Manager Nephrology 06/11/18 Heena Adams [address] [facility] [address] [place] [address] Specialty Concert Or Lecture Hall Manager Endocrinology 06/11/18 Satish Phan MD [address] [place] [address] Specialty Concert Or Lecture Hall Manager General Surgery 07/25/18 Window Installer Relationship Specialty Start Date End Date Zaida Gaston MD [address] [facility] [place] [place] [address] PCP - General Internal Medicine 04/26/16 Loida Montiel I, DO [address] [facility] [address] [place] [address] Specialty Concert Or Lecture Hall Manager Nephrology 06/11/18 Heena Adams [address] [place] [address] Specialty Concert Or Lecture Hall Manager Endocrinology 06/11/18 Satish Phan MD [address] [place] [address] Specialty Concert Or Lecture Hall Manager General Surgery 07/25/18 Window Installer Relationship Specialty Start Date End Date Zaida Gaston MD [address] [facility] [place] [place] [address] PCP - General Internal Medicine 04/26/16 Loida Montiel I, DO [address] [place], [place] [id number] Specialty Concert Or Lecture Hall Manager Nephrology 06/11/18 Heena Adams [address] [facility] [address] [place] [address] Specialty Concert Or Lecture Hall Manager Endocrinology 06/11/18 Satish Phan MD [address] [place] [address] Specialty Concert Or Lecture Hall Manager General Surgery 07/25/18 Window Installer Relationship Specialty Start Date End Date Zaida Gaston MD [address] [facility] [place] [address] PCP - General Internal Medicine 04/26/16 Loida Montiel I, DO [address] [place] [address] Specialty Concert Or Lecture Hall Manager Nephrology 06/11/18 Heena Adams [address] [facility] [address] [place] [address] Specialty Concert Or Lecture Hall Manager Endocrinology 06/11/18 Satish Phan MD [address] [place] [address] Specialty Concert Or Lecture Hall Manager General Surgery 07/25/18 Window Installer Relationship Specialty Start Date End Date Zaida Gaston MD [address] [facility] [place] [address] PCP - General Internal Medicine 04/26/16 Loida Montiel I, DO [address] [place] [address] Specialty Concert Or Lecture Hall Manager Nephrology 06/11/18 Heena Adams [address] [facility] [address] [place] [address] [phone] Specialty Concert Or Lecture Hall Manager Endocrinology 06/11/18 Satish Phan MD [address] [place] [address] Specialty Concert Or Lecture Hall Manager General Surgery 07/25/18 Window Installer Relationship Specialty Start Date End Date Zaida Gaston MD [address] [facility] [place] [address] PCP - General Internal Medicine 04/26/16 Loida Montiel I, DO [address] [place] [address] Specialty Concert Or Lecture Hall Manager Nephrology 06/11/18 Heena Adams [address] [facility] [address] [place] [phone] Specialty Concert Or Lecture Hall Manager Endocrinology 06/11/18 Satish Phan MD [address] [place] [address] Specialty Concert Or Lecture Hall Manager General Surgery 07/25/18 Window Installer Relationship Specialty Start Date End Date Zaida Gaston MD [address] [facility] [place] [address] PCP - General Internal Medicine 04/26/16 Loida Montiel I, [address] [place] [address] Specialty Concert Or Lecture Hall Manager Nephrology 06/11/18 Heena Adams [address] [facility] [address] [place] [phone] Specialty Concert Or Lecture Hall Manager Endocrinology 06/11/18 Satish Phan MD [address] [place] [address] Specialty Concert Or Lecture Hall Manager General Surgery 07/25/18 Window Installer Relationship Specialty Start Date End Date Zaida Gaston MD [address] [facility] [place] [address] PCP - General Internal Medicine 04/26/16 Loida Montiel I, DO [address] [place] [address] Specialty Concert Or Lecture Hall Manager Nephrology 06/11/18 Heena Adams [address] [facility] [address] [place] [phone] Specialty Concert Or Lecture Hall Manager Endocrinology 06/11/18 Satish Phan MD [address] [place] [address] Specialty Concert Or Lecture Hall Manager General Surgery 07/25/18 Window Installer Relationship Specialty Start Date End Date Zaida Gaston MD [address] [facility] [place] [place] [address] PCP - General Internal Medicine 04/26/16 Loida Montiel I, DO [address] [place] [address] Specialty Concert Or Lecture Hall Manager Nephrology 06/11/18 Heena Adams [address] [facility] [address] [place] [phone] Specialty Concert Or Lecture Hall Manager Endocrinology 06/11/18 Satish Phan MD [address] [place] [address] Specialty Concert Or Lecture Hall Manager General Surgery 07/25/18 Window Installer Relationship Specialty Start Date End Date Zaida Gaston MD [address] [facility] [place] [place] [address] PCP - General Internal Medicine 04/26/16 oLida Montiel I, DO [address] [facility] [address] [place] [address] Specialty Concert Or Lecture Hall Manager Nephrology 06/11/18 Heena Adams [address] [facility] [address] [place] [phone] Specialty Concert Or Lecture Hall Manager Endocrinology 06/11/18 Satish Phan MD [address] [place] [address] Specialty Concert Or Lecture Hall Manager General Surgery 07/25/18 Conchis Sheets, RN Registered Nurse Transplant Center 07/25/23 Window Installer Relationship Specialty Start Date End Date Zaida Gaston MD [address] [facility] [place] [address] PCP - General Internal Medicine 04/26/16 Loida Montiel I, DO [address] [facility] [address] [place] [address] Specialty Concert Or Lecture Hall Manager Nephrology 06/11/18 Heena Adams [address] [facility] [address] [place] [phone] Specialty Concert Or Lecture Hall Manager Endocrinology 06/11/18 Satish Phan MD [address] [facility] [address] Specialty Concert Or Lecture Hall Manager General Surgery 07/25/18 Conchis Sheets RN Registered Nurse Transplant Center 07/25/23 Window Installer Relationship Specialty Start Date End Date Zaida Gaston MD [address] [facility] [place] [address] PCP - General Internal Medicine 04/26/16 Loida Montiel I, DO [address] [facility] [address] [place] [address] Specialty Concert Or Lecture Hall Manager Nephrology 06/11/18 Heena Adams [address] [facility] [address] [place] [phone] Specialty Concert Or Lecture Hall Manager Endocrinology 06/11/18 Satish Phan MD [address] [place] [address] Specialty Concert Or Lecture Hall Manager General Surgery 07/25/18 Conchis Sheets, RN Registered Nurse Transplant Center 07/25/23 Window Installer Relationship Specialty Start Date End Date Zaida Gaston MD [address] [facility] [place] [address] PCP - General Internal Medicine 04/26/16 Loida Montiel I, DO [address] [facility] [address] [place] [address] Specialty Concert Or Lecture Hall Manager Nephrology 06/11/18 Heena Adams [address] [place] [facility] [address] [place] [phone] Specialty Concert Or Lecture Hall Manager Endocrinology 06/11/18 Satish Phan MD [address] [facility] [place] [address] Specialty Concert Or Lecture Hall Manager General Surgery 07/25/18 Conchis Sheets RN Registered Nurse Transplant Center 07/25/23 Window Installer Relationship Specialty Start Date End Date Zaida Gaston MD [address] [facility] [place] [address] PCP - General Internal Medicine 04/26/16 Loida Montiel I, DO [address] [facility] [address] [place], [place] [address] Specialty Concert Or Lecture Hall Manager Nephrology 06/11/18 Heena Adams [address] [facility] [address] [place] [phone] Specialty Concert Or Lecture Hall Manager Endocrinology 06/11/18 Satish Phan MD [address] [place] [address] Specialty Concert Or Lecture Hall Manager General Surgery 07/25/18 Conchis Sheets, RN Registered Nurse Transplant Center 07/25/23 Window Installer Relationship Specialty Start Date End Date Zaida Gaston MD [address] [facility] [place] [address] PCP - General Internal Medicine 04/26/16 Loida Montiel I, DO [address] [place] [address] Specialty Concert Or Lecture Hall Manager Nephrology 06/11/18 Heena Adams [address] [facility] [address] [place] [phone] Specialty Concert Or Lecture Hall Manager Endocrinology 06/11/18 Satish Phan MD [address] [facility] [place] [address] Specialty Concert Or Lecture Hall Manager General Surgery 07/25/18 Conchis Sheets, RN Registered Nurse Transplant Center 07/25/23 Conchis Sheets, ANDER Registered Nurse Transplant Center 09/10/23 Window Installer Relationship Specialty Start Date End Date Zaida Gaston MD [address] [facility] [place] [address] PCP - General Internal Medicine 04/26/16 Loida Montiel I, DO [address] [place], [place] [address] Specialty Concert Or Lecture Hall Manager Nephrology 06/11/18 Heena Adams [address] [facility] [address] [place] [phone] Specialty Concert Or Lecture Hall Manager Endocrinology 06/11/18 Satish Phan MD [address] [place] [address] Specialty Concert Or Lecture Hall Manager General Surgery 07/25/18 Conchis Sheets, ANDER Registered Nurse Transplant Center 07/25/23 Conchis Sheets, ANDER Registered Nurse Transplant Center 09/10/23 Window Installer Relationship Specialty Start Date End Date Zaida Gaston MD [address] [facility] [place] [address] PCP - General Internal Medicine 04/26/16 Loida Montiel I, DO [address] [facility] [address] [place] [address] Specialty Concert Or Lecture Hall Manager Nephrology 06/11/18 Heena Adams [address] [facility] [address] [place] [address] Specialty Concert Or Lecture Hall Manager Endocrinology 06/11/18 Satish Phan MD [address] [place] [address] Specialty Concert Or Lecture Hall Manager General Surgery 07/25/18 Conchis Sheets, ANDER Registered Nurse Transplant Center 07/25/23 Conchis Sheets RN Registered Nurse Transplant Center 09/10/23 Window Installer Relationship Specialty Start Date End Date Zaida Gaston MD [address] [facility] [place] [address] PCP - General Internal Medicine 04/26/16 Loida Montiel I, DO [address] [facility] [address] [facility] [address] [place] [address] Specialty Concert Or Lecture Hall Manager Nephrology 06/11/18 Heena Adams [address] [facility] [address] [place] [address] Specialty Concert Or Lecture Hall Manager Endocrinology 06/11/18 Satish Phan MD [address] [facility] [place] [address] Specialty Concert Or Lecture Hall Manager General Surgery 07/25/18 Conchis Sheets, RN Registered Nurse Transplant Center 07/25/23 Conchis Sheets, RN Registered Nurse Transplant Center 09/10/23 Window Installer Relationship Specialty Start Date End Date Zaida Gaston MD [address] [facility] [place] [address] PCP - General Internal Medicine 04/26/16 Loida Montiel I, DO [address] [facility] [address] [place] [address] Specialty Concert Or Lecture Hall Manager Nephrology 06/11/18 Heena Adams [address] [facility] [address] [place] [address] Specialty Concert Or Lecture Hall Manager Endocrinology 06/11/18 Satish Phan MD [address] [facility] [place] [address] Specialty Concert Or Lecture Hall Manager General Surgery 07/25/18 Conchis Sheets, RN Registered Nurse Transplant Center 07/25/23 Conchis Sheets, RN Registered Nurse Transplant Center 09/10/23 Window Installer Relationship Specialty Start Date End Date Zaida Gaston MD [address] [facility] [place] [address] PCP - General Internal Medicine 04/26/16 Loida Montiel I, DO [address] [facility] [address] [place] [address] Specialty Concert Or Lecture Hall Manager Nephrology 06/11/18 Heena Adams [address] [facility] [address] [place] [address] Specialty Concert Or Lecture Hall Manager Endocrinology 06/11/18 Satish Phan MD [address] [facility] [place] [address] Specialty Concert Or Lecture Hall Manager General Surgery 07/25/18 Conchis Sheets, ANDER Registered Nurse Transplant Center 07/25/23 Conchis Sheets, ANDER Registered Nurse Transplant Center 09/10/23 Window Installer Relationship Specialty Start Date End Date Zaiad Gaston MD [address] [facility] [place] [address] PCP - General Internal Medicine 04/26/16 Loida Montiel I, DO [address] [place] [address] Specialty Concert Or Lecture Hall Manager Nephrology 06/11/18 Heena Admas [address] [facility] [address] [place] [address] Specialty Concert Or Lecture Hall Manager Endocrinology 06/11/18 Satish Phan MD [address] [facility] [place] [address] Specialty Concert Or Lecture Hall Manager General Surgery 07/25/18 Conchis Sheets, RN Registered Nurse Transplant Center 07/25/23 Conchis Sheets RN Registered Nurse Transplant Center 09/10/23 Window Installer Relationship Specialty Start Date End Date Zaida Gaston MD [address] [facility] [place] [address] PCP - General Internal Medicine 04/26/16 Loida Montiel I, DO [address] [place] [address] Specialty Concert Or Lecture Hall Manager Nephrology 06/11/18 Heena Adams [address] [facility] [address] [place] [address] Specialty Concert Or Lecture Hall Manager Endocrinology 06/11/18 Satish Phan MD [address] [facility] [place] [address] Specialty Concert Or Lecture Hall Manager General Surgery 07/25/18 Conchis Sheets RN Registered Nurse Transplant Center 07/25/23 Conchis Sheets RN Registered Nurse Transplant Center 09/10/23 Window Installer Relationship Specialty Start Date End Date Zaida Gaston MD [address] [facility] [place] [place] [address] PCP - General Internal Medicine 04/26/16 Loida Montiel I, DO [address] [facility] [address] [place] [address] Specialty Concert Or Lecture Hall Manager Nephrology 06/11/18 Heena Adams [address] [facility] [address] [place] [address] Specialty Concert Or Lecture Hall Manager Endocrinology 06/11/18 Satish Phan MD [address] [facility] [place] [address] Specialty Concert Or Lecture Hall Manager General Surgery 07/25/18 Conchis Sheets RN Registered Nurse Transplant Center 07/25/23 Begala, Conchis, RN Registered Nurse Transplant Center 09/10/23 Window Installer Relationship Specialty Start Date End Date Zaida Gaston MD [address] [facility] [place] [address] PCP - General Internal Medicine 04/26/16 Loida Montiel I, DO [address] [facility] [address] [place] [address] Specialty Concert Or Lecture Hall Manager Nephrology 06/11/18 Heena Adams [address] [facility] [address] [place] [phone] Specialty Concert Or Lecture Hall Manager Endocrinology 06/11/18 Satish Phan MD [address] [facility] [address] Specialty Concert Or Lecture Hall Manager General Surgery 07/25/18 Conchis Sheets, ANDER Registered Nurse Transplant Center 07/25/23 Conchis Sheets, ANDER Registered Nurse Transplant Center 09/10/23 Window Installer Relationship Specialty Start Date End Date Zaida Gaston MD [address] [facility] [place] [address] PCP - General Internal Medicine 04/26/16 Loida Montiel I, DO [address] [place] [address] Specialty Concert Or Lecture Hall Manager Nephrology 06/11/18 Heena Adams [address] [facility] [address] [place] [phone] Specialty Concert Or Lecture Hall Manager Endocrinology 06/11/18 Satish Phan MD [address] [facility] [address] Specialty Concert Or Lecture Hall Manager General Surgery 07/25/18 Conchis Sheets, ANDER Registered Nurse Transplant Center 07/25/23 Conchis Sheets RN Registered Nurse Transplant Center 09/10/23 Window Installer Relationship Specialty Start Date End Date Zaida Gaston MD [address] [facility] [place] [address] PCP - General Internal Medicine 04/26/16 Loida Montiel I, DO [address] [place] [address] [place] [address] Specialty Concert Or Lecture Hall Manager Nephrology 06/11/18 Heena Adams [address] [facility] [address] [place] [address] Specialty Concert Or Lecture Hall Manager Endocrinology 06/11/18 Satish Phan MD [address] [facility] [place] [address] Specialty Concert Or Lecture Hall Manager General Surgery 07/25/18 Conchis Sheets, ANDER Registered Nurse Transplant Center 07/25/23 Conchis Sheets RN Registered Nurse Transplant Center 09/10/23 Window Installer Relationship Specialty Start Date End Date Zaida Gaston MD [address] [facility] [place] [address] PCP - General Internal Medicine 04/26/16 Loida Montiel I, DO [address] [address] [place] [address] Specialty Concert Or Lecture Hall Manager Nephrology 06/11/18 Heena Adams [address] [place] [address] Specialty Concert Or Lecture Hall Manager Endocrinology 06/11/18 Satish Phan MD [address] [place] [address] Specialty Concert Or Lecture Hall Manager General Surgery 07/25/18 Alana Kent APRN.SENIOR NET SOFTWARE DEVELOPER [address] [place] [address] Transplant Center 03/20/24 Window Installer Relationship Specialty Start Date End Date Zaida Gaston MD [address] [facility] [place] [address] PCP - General Internal Medicine 04/26/16 Loida Montiel I, DO [address] [place] [address] Specialty Concert Or Lecture Hall Manager Nephrology 06/11/18 Heena Adams [address] [facility] [address] [place] [address] Specialty Concert Or Lecture Hall Manager Endocrinology 06/11/18 Satish Phan MD [address] [place] [address] Specialty Concert Or Lecture Hall Manager General Surgery 07/25/18 Alana Kent APRN.SENIOR NET SOFTWARE DEVELOPER [address] [place] [address] Transplant Center 03/20/24 Window Installer Relationship Specialty Start Date End Date Zaida Gaston MD [address] [facility] [place] [address] PCP - General Internal Medicine 04/26/16 Loida Montiel I, DO [address] [address] Specialty Concert Or Lecture Hall Manager Nephrology 06/11/18 Heena Adams [address] [address] Specialty Concert Or Lecture Hall Manager Endocrinology 06/11/18 Satish Phan MD [address] [place] [address] Specialty Concert Or Lecture Hall Manager General Surgery 07/25/18 Alana Kent APRN.SENIOR NET SOFTWARE DEVELOPER [address] [place], [place] [address] Transplant Center 03/20/24 Window Installer Relationship Specialty Start Date End Date Zaida Gaston MD [address] [place] [address] PCP - General Internal Medicine 04/26/16 Loida Montiel I, DO [address] [address] Specialty Concert Or Lecture Hall Manager Nephrology 06/11/18 Heena Adams [address] [address] Specialty Concert Or Lecture Hall Manager Endocrinology 06/11/18 Satish Phan MD [address] [place], [place] [address] Specialty Concert Or Lecture Hall Manager General Surgery 07/25/18 Alana Kent APRN.SENIOR NET SOFTWARE DEVELOPER [address] [facility] [place], [place] [address] Transplant Center 03/20/24 Window Installer Relationship Specialty Start Date End Date Zaida Gaston MD [address] [place], [place] [address] PCP - General Internal Medicine 04/26/16 Loida Montiel I, DO [address] [address] Specialty Concert Or Lecture Hall Manager Nephrology 06/11/18 Heena Adams [address] [facility] [address] [place] [phone] Specialty Concert Or Lecture Hall Manager Endocrinology 06/11/18 Satish Phan MD [address] [place], [place] [address] Specialty Concert Or Lecture Hall Manager General Surgery 07/25/18 Alana Kent APRN.SENIOR NET SOFTWARE DEVELOPER [address] [place] [address] Transplant Center 03/20/24 Window Installer Relationship Specialty Start Date End Date Zaida Gaston MD [address] [place], [place] [address] PCP - General Internal Medicine 04/26/16 Loida Montiel I, DO [address] [id number] Specialty Concert Or Lecture Hall Manager Nephrology 06/11/18 Heena Adams [address] [facility] [address] [place] [phone] Specialty Concert Or Lecture Hall Manager Endocrinology 06/11/18 Satish Phan MD [address] [place] [address] Specialty Concert Or Lecture Hall Manager General Surgery 07/25/18 Alana Kent APRN.SENIOR NET SOFTWARE DEVELOPER [address] [place] [address] Transplant Center 03/20/24 Window Installer Relationship Specialty Start Date End Date Zaida Gaston MD [address] [facility] [place] [address] PCP - General Internal Medicine 04/26/16 Loida Montiel I, DO [address] [facility] [address] [place] [address] Specialty Concert Or Lecture Hall Manager Nephrology 06/11/18 Heena Adams [address] [facility] [address] [place] [address] Specialty Concert Or Lecture Hall Manager Endocrinology 06/11/18 Satish Phan MD [address] [place] [address] Specialty Concert Or Lecture Hall Manager General Surgery 07/25/18 Alana Kent APRN.SENIOR NET SOFTWARE DEVELOPER [address] [place] [address] Transplant Center 03/20/24 Window Installer Relationship Specialty Start Date End Date Zaida Gaston MD [address] [facility] [place] [address] PCP - General Internal Medicine 04/26/16 Loida Montiel I, DO [address] [facility] [address] [place] [address] Specialty Concert Or Lecture Hall Manager Nephrology 06/11/18 Heena Adams [address] [facility] [address] [place] [phone] Specialty Concert Or Lecture Hall Manager Endocrinology 06/11/18 Satish Phan MD [address] [place] [address] Specialty Concert Or Lecture Hall Manager General Surgery 07/25/18 Alana Kent APRN.SENIOR NET SOFTWARE DEVELOPER [address] [place] [address] Transplant Center 03/20/24 Window Installer Relationship Specialty Start Date End Date Zaida Gaston MD [address] [place] [address] PCP - General Internal Medicine 04/26/16 Loida Montiel I, DO [address] [id number] Specialty Concert Or Lecture Hall Manager Nephrology 06/11/18 Heena Adams [address] [facility] [address] [place] [phone] Specialty Concert Or Lecture Hall Manager Endocrinology 06/11/18 Satish Phan MD [address] [place] [address] Specialty Concert Or Lecture Hall Manager General Surgery 07/25/18 Alana Kent APRN.SENIOR NET SOFTWARE DEVELOPER [address] [facility] [place] [address] Transplant Center 03/20/24 Window Installer Relationship Specialty Start Date End Date Zaida Gaston MD [address] [place], [place] [address] PCP - General Internal Medicine 04/26/16 Loida Montiel I, DO [address], [place] [address] Specialty Concert Or Lecture Hall Manager Nephrology 06/11/18 Heena Adams [address] [facility] [address] [place] [phone] Specialty Concert Or Lecture Hall Manager Endocrinology 06/11/18 Satish Phan MD [address] [place], [place] [address] Specialty Concert Or Lecture Hall Manager General Surgery 07/25/18 Alana Kent APRN.SENIOR NET SOFTWARE DEVELOPER [address] [place] [place], [place] [address] Transplant Center 03/20/24 Window Installer Relationship Specialty Start Date End Date Zaida Gaston MD [address] [place] [address] PCP - General Internal Medicine 04/26/16 Loida Montiel I, DO [address], [place] [address] Specialty Concert Or Lecture Hall Manager Nephrology 06/11/18 Heena Adams [address] [facility] [address] [place] [phone] Specialty Concert Or Lecture Hall Manager Endocrinology 06/11/18 Satish Phan MD [address] [place] [address] Specialty Concert Or Lecture Hall Manager General Surgery 07/25/18 Alana Kent APRN.SENIOR NET SOFTWARE DEVELOPER [address] [place] [address] Transplant Center 03/20/24 Window Installer Relationship Specialty Start Date End Date Zaida Gaston MD [address] [place] [address] PCP - General Internal Medicine 04/26/16 Loida Montiel I, DO [address] [address] Specialty Concert Or Lecture Hall Manager Nephrology 06/11/18 Heena Adams [address] [address] Specialty Concert Or Lecture Hall Manager Endocrinology 06/11/18 Satish Phan MD [address] [place] [address] Specialty Concert Or Lecture Hall Manager General Surgery 07/25/18 Alana Kent APRN.SENIOR NET SOFTWARE DEVELOPER [address] [facility] [place] [address] Transplant Center 03/20/24 Window Installer Relationship Specialty Start Date End Date Zaida Gaston MD [address] [place] [address] PCP - General Internal Medicine 04/26/16 Loida Montiel I, DO [address] [facility] [address] [address] Specialty Concert Or Lecture Hall Manager Nephrology 06/11/18 Heena Adams [address] [phone] Specialty Concert Or Lecture Hall Manager Endocrinology 06/11/18 Satish Phan MD [address] [place] [place], [place] [address] Specialty Concert Or Lecture Hall Manager General Surgery 07/25/18 Alana Kent APRN.SENIOR NET SOFTWARE DEVELOPER [address] [place], [place] [address]236295 Transplant Center 03/20/24 Xiang Perez PA-C [address] [place] [address] Telecommunications Technician Family Medicine 08/16/24 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 APRN.SENIOR NET SOFTWARE DEVELOPER [address] [place] [address] Telecommunications Technician Internal Medicine 08/16/24 Amber Gray PA-C [address] [place] [address] Telecommunications Technician Family [facility] 08/16/24 Window Installer Relationship Specialty Start Date End Date Zaida Gaston MD [address] [place] [address] PCP - General Internal Medicine 04/26/16 Loida Montiel I, DO [address] [address] Specialty Concert Or Lecture Hall Manager Nephrology 06/11/18 Heena Adams [address] [facility] [address] [place] [phone] Specialty Concert Or Lecture Hall Manager Endocrinology 06/11/18 Satish Phan MD [address] [place] [address] Specialty Concert Or Lecture Hall Manager General Surgery 07/25/18 Alana Kent APRN.SENIOR NET SOFTWARE DEVELOPER [address] [place] [address] Transplant Center 03/20/24 Xiang Perez PA-C [address] [place] [address] Telecommunications Technician Family Medicine 08/16/24 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 APRN.SENIOR NET SOFTWARE DEVELOPER [address] [place] [address] Telecommunications Technician Internal Medicine 08/16/24 Amber Gray PA-C [address] [place] [address] Telecommunications Technician Family Medicine 08/16/24 Window Installer Relationship Specialty Start Date End Date Zaida Gaston MD [address] [place] [address] PCP - General Internal Medicine 04/26/16 Loida Montiel I, DO [address] [facility] [address] [place], [place] [address] Specialty Concert Or Lecture Hall Manager Nephrology 06/11/18 Heena Adams [address] [facility] [address] [place] [phone] Specialty Concert Or Lecture Hall Manager Endocrinology 06/11/18 Satish Phan MD [address] [place], [place] 507[address] Specialty Concert Or Lecture Hall Manager General Surgery 07/25/18 Alana Kent APRN.SENIOR NET SOFTWARE DEVELOPER [address] [place] [address] Transplant Center 03/20/24 Xiang Perez PA-C [address] [place] [address] Telecommunications Technician Family Medicine 08/16/24 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 APRN.SENIOR NET SOFTWARE DEVELOPER [address] [place], [place] [address] Telecommunications Technician Internal Medicine 08/16/24 Amber Gray PA-C [address] [place], [place] [address]178[address] [facility] 08/[facility]24 Team Status: Active Member Role Status [...] January 26, 2025 End: January 27, 2025 Window Installer Relationship Specialty Start Date End Date Zaida Gaston MD [address]40 [facility] [place], [place] [address] PCP - General Internal Medicine 04/26/16 Loida Montiel I, DO [address] [address] Specialty Concert Or Lecture Hall Manager Nephrology 06/11/18 Heena Adams [address] [facility] [address] [place] [address] Specialty Concert Or Lecture Hall Manager Endocrinology 06/11/18 Satish Phan MD [address] [facility] [place] [place] [address] Specialty Concert Or Lecture Hall Manager General Surgery 07/25/18 Alana Knet APRN.SENIOR NET SOFTWARE DEVELOPER [address] [place] [address] Transplant Center 03/20/24 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 APRN.SENIOR NET SOFTWARE DEVELOPER [address] [place] [address] Telecommunications Technician Internal Medicine 08/16/24 Leona Esteves MD Telecommunications Technician 01/29/25 02/11/25 Window Installer Relationship Specialty Start Date End Date Zaida Gaston MD [address] [place] [address] PCP - General Internal Medicine 04/26/16 Loida Montiel I, DO [address] [facility] [address] [place] [address] Specialty Concert Or Lecture Hall Manager Nephrology 06/11/18 Heena Adams [address] [facility] [address] [place] [address] Specialty Concert Or Lecture Hall Manager Endocrinology 06/11/18 Satish Phan MD [address] [place] [address] Specialty Concert Or Lecture Hall Manager General Surgery 07/25/18 Alana Kent APRN.SENIOR NET SOFTWARE DEVELOPER [address] [place] [address] Transplant Center 03/20/24 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 APRN.SENIOR NET SOFTWARE DEVELOPER [address] [place] [address] Telecommunications Technician Internal Medicine 08/16/24 Leona Esteves MD Telecommunications Technician 01/29/25 02/11/25 Window Installer Relationship Specialty Start Date End Date Zaida Gaston MD [address] [place] [address] PCP - General Internal Medicine 04/26/16 Loida Montiel I, DO [address] [facility] [address] [place] [address] Specialty Concert Or Lecture Hall Manager Nephrology 06/11/18 Heena Adams [address] A [facility] [address] [place] [phone] Specialty Concert Or Lecture Hall Manager Endocrinology 06/11/18 Satish Phan MD [address] [place] [address] Specialty Concert Or Lecture Hall Manager General Surgery 07/25/18 Alana Kent APRN.SENIOR NET SOFTWARE DEVELOPER [address] [place] [address] Transplant Center 03/20/24 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 APRN.SENIOR NET SOFTWARE DEVELOPER [address] [place] [address] Telecommunications Technician Internal Medicine 08/16/24 ProviderLeona MD Telecommunications Technician 01/29/25 02/11/25 Window Installer Relationship Specialty Start Date End Date Zaida Gaston MD [address] [place] [address] PCP - General Internal Medicine 04/26/16 Loida Montiel I, DO [address] [facility] [address] [place] [address] Specialty Concert Or Lecture Hall Manager Nephrology 06/11/18 Heena Adams [address] A [facility] [address] [place] [phone] Specialty Concert Or Lecture Hall Manager Endocrinology 06/11/18 Satish Phan MD [address] [place], [place] [address] Specialty Concert Or Lecture Hall Manager General Surgery 07/25/18 Alana Kent APRN.SENIOR NET SOFTWARE DEVELOPER [address] [place] [address] Transplant Center 03/20/24 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 APRN.SENIOR NET SOFTWARE DEVELOPER [address] [place], [place] [address]31 Telecommunications Technician Internal Medicine 08/16/24 ProviderLeona MD Telecommunications Technician 01/29/25 02/11/25 Team Status: Inactive Member Role [...] February 07, 2025 End: February 07, 2025 Window Installer Relationship Specialty Start Date End Date Zaida Gaston MD [address] [place], [place] [address]11 PCP - General Internal Medicine 04/26/16 Loida Montiel I, DO [address] [facility] [address] [place], [place] [address] Specialty Concert Or Lecture Hall Manager Nephrology 06/11/18 Heena Adams [address] [facility] [address] [place] [address] Specialty Concert Or Lecture Hall Manager Endocrinology 06/11/18 Satish Phan MD [address] [place], [place] [address] Specialty Concert Or Lecture Hall Manager General Surgery 07/25/18 Alana Kent APRN.SENIOR NET SOFTWARE DEVELOPER [address] [place], [place] [address] Transplant Center 03/20/24 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 APRN.SENIOR NET SOFTWARE DEVELOPER [address] [place] [address] Telecommunications Technician Internal Medicine 08/16/24 Leona Esteves MD Telecommunications Technician 01/29/25 02/11/25 Window Installer Relationship Specialty Start Date End Date Zaida Gaston MD [address] [place] [address] PCP - General Internal Medicine 04/26/16 Loida Montiel I, DO [address] [address] Specialty Concert Or Lecture Hall Manager Nephrology 06/11/18 Heena Adams [address] [phone] Specialty Concert Or Lecture Hall Manager Endocrinology 06/11/18 Satish Phan MD [address] [place] [address] Specialty Concert Or Lecture Hall Manager General Surgery 07/25/18 Alana Kent APRN.SENIOR NET SOFTWARE DEVELOPER [address] [place] [address] Transplant Center 03/20/24 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 APRN.SENIOR NET SOFTWARE DEVELOPER 1740 [facility] [address] Telecommunications Technician Internal Medicine 08/16/24 Leona Esteves MD Telecommunications Technician 01/29/25 02/11/25 Window Installer Relationship Specialty Start Date End Date Zaida Gaston MD [address] [facility] [place] [address] PCP - General Internal Medicine 04/26/16 Loida Montiel I, [address] [address] Specialty Concert Or Lecture Hall Manager Nephrology 06/11/18 Heena Adams [address] [facility] [address] [place] [address] Specialty Concert Or Lecture Hall Manager Endocrinology 06/11/18 Satish Phan MD [address] [facility] [address] Specialty Concert Or Lecture Hall Manager General Surgery 07/25/18 Alana Kent APRN.SENIOR NET SOFTWARE DEVELOPER [address] [place] [address] Transplant Center 03/20/24 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 APRN.SENIOR NET SOFTWARE DEVELOPER 1740 [facility] [address] Telecommunications Technician Internal Medicine 08/16/24 Window Installer Relationship Specialty Start Date End Date Zaida Gaston MD [address] [facility] [place] [address] PCP - General Internal Medicine 04/26/16 Loida Montiel I, DO [address] 7[address] Specialty Concert Or Lecture Hall Manager Nephrology 06/11/18 Heena Adams [address] [phone] Specialty Concert Or Lecture Hall Manager Endocrinology 06/11/18 Satish Phan MD [address] [place], [place] [address] Specialty Concert Or Lecture Hall Manager General Surgery 07/25/18 Alana Kent APRN.SENIOR NET SOFTWARE DEVELOPER [address] [place] [address] Transplant Center 03/20/24 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 APRN.SENIOR NET SOFTWARE DEVELOPER [address] [place] [address] Telecommunications Technician Internal Medicine 08/16/24 ProviderLeona MD Telecommunications Technician 01/29/25 02/11/25 Window Installer Relationship Specialty Start Date End Date Zaida Gaston MD [address] [place], [place] [id number] PCP - General Internal Medicine 04/26/16 Loida Montiel I, DO [address] [address]31 Specialty Concert Or Lecture Hall Manager Nephrology 06/11/18 Heena Adams [address] [phone] Specialty Concert Or Lecture Hall Manager Endocrinology 06/11/18 Satish Phan MD [address] [place], [place] [address] Specialty Concert Or Lecture Hall Manager General Surgery 07/25/18 Alana Kent APRN.SENIOR NET SOFTWARE DEVELOPER [address] [place], [place] [address] Transplant Center 03/20/24 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 APRN.SENIOR NET SOFTWARE DEVELOPER [address] [place], [place] [address] Telecommunications Technician Internal Medicine 08/16/24 MeyVerna, [facility] [address] [place] [address] Pharmacist Pharmacy 03/08/25 Window Installer Relationship Specialty Start Date End Date Zaida Gaston MD [address] [place], [place] 1843[address] PCP - General Internal Medicine 04/26/16 Loida Montiel I, DO [address] [phone] Specialty Concert Or Lecture Hall Manager Nephrology 06/11/18 Heena Adams [address] [address] Specialty Concert Or Lecture Hall Manager Endocrinology 06/11/18 Satish Phan MD [address] [place], [place] [address] Specialty Concert Or Lecture Hall Manager General Surgery 07/25/18 Alana Kent APRN.SENIOR NET SOFTWARE DEVELOPER [address] [place] [address] Transplant Center 03/20/24 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 APRN.SENIOR NET SOFTWARE DEVELOPER 1740 [facility] [address] Telecommunications Technician Internal Medicine 08/16/24 Verna Jensen, [facility] [address] [place] [address] Pharmacist Pharmacy 03/08/25 Team Status: Active Member [...] March 10, 2025 End: March 10, 2025 Window Installer Relationship Specialty Start Date End Date Zaida Gaston MD [address] [place] [address] PCP - General Internal Medicine 04/26/16 Loida Montiel I, DO [address] [facility] [address] [place] [address] Specialty Concert Or Lecture Hall Manager Nephrology 06/11/18 Heena Adams [address] A [facility] [address] [place] [address] Specialty Concert Or Lecture Hall Manager Endocrinology 06/11/18 Satish Phan MD [address] [place], [place] [address] Specialty Concert Or Lecture Hall Manager General Surgery 07/25/18 Alana Kent APRN.SENIOR NET SOFTWARE DEVELOPER [address] [facility] [place] [address] Transplant Center 03/20/24 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 APRN.SENIOR NET SOFTWARE DEVELOPER [address] [place], [place] 2[address]21 Telecommunications Technician Internal Medicine 08/16/24 MarstellerVerna, [facility] [address] [place] [address] Pharmacist Pharmacy 03/08/25 Team Status: Inactive Member [...] April 04, 2025 End: April 04, 2025 Window Installer Relationship Specialty Start Date End Date Zaida Gaston MD [address] [place], [place] 439561 PCP - General Internal Medicine 04/26/16 Loida Montiel I, DO [address] [phone] Specialty Concert Or Lecture Hall Manager Nephrology 06/11/18 Heena Adams [address] [facility] [address] [place] [address] Specialty Concert Or Lecture Hall Manager Endocrinology 06/11/18 Satish Phan MD [address] [place], [place] [address] Specialty Concert Or Lecture Hall Manager General Surgery 07/25/18 Alana Kent APRN.SENIOR NET SOFTWARE DEVELOPER [address] [place] [address] Transplant Center 03/20/24 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 APRN.SENIOR NET SOFTWARE DEVELOPER [address] [place], [place] [address] Telecommunications Technician Internal Medicine 08/16/24 Verna [place] [address] [place] [address] Pharmacist Pharmacy 03/08/25 Window Installer Relationship Specialty Start Date End Date Zaida Gaston MD [address] [place], [place] 962091 PCP - General Internal Medicine 04/26/16 Loida Montiel I, DO [address] [address] Specialty Concert Or Lecture Hall Manager Nephrology 06/11/18 Heena Adams [address] [address] Specialty Concert Or Lecture Hall Manager Endocrinology 06/11/18 Satish Phan MD [address] [facility] [place], [place] [address] Specialty Concert Or Lecture Hall Manager General Surgery 07/25/18 Alana Kent APRN.SENIOR NET SOFTWARE DEVELOPER [address] [place] [address] Transplant Center 03/20/24 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 APRN.SENIOR NET SOFTWARE DEVELOPER [address] [place], [place] [address]61 Telecommunications Technician Internal Medicine 08/16/24 Verna Jensen[place] [address] [place] [address] Pharmacist Pharmacy 03/08/25 Team Status: Inactive Member [...] Other Provider Active Start: April 17, 2025 Window Installer Relationship Specialty Start Date End Date Zaida Gaston MD [address] [place], [place] 000[address]31 PCP - General Internal Medicine 04/26/16 Loida Montiel I, DO [address] [address] Specialty Concert Or Lecture Hall Manager Nephrology 06/11/18 Heena Adams [address] [address] Specialty Concert Or Lecture Hall Manager Endocrinology 06/11/18 Satish Phan MD [address] [place] [address] Specialty Concert Or Lecture Hall Manager General Surgery 07/25/18 Alana Kent APRN.SENIOR NET SOFTWARE DEVELOPER [address] [place] [address] Transplant Center 03/20/24 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 APRN.SENIOR NET SOFTWARE DEVELOPER [address] [place] [address] Telecommunications Technician Internal Medicine 08/16/24 Mey, [facility] [address] [place] [address] Pharmacist Pharmacy 03/08/25 Window Installer Relationship Specialty Start Date End Date Zaida Gaston MD [address] [place], [place] 535271 PCP - General Internal Medicine 04/26/16 Loida Montiel I, DO [address] [phone] Specialty Concert Or Lecture Hall Manager Nephrology 06/11/18 Heena Adams [address] [phone] Specialty Concert Or Lecture Hall Manager Endocrinology 06/11/18 Satish Phan MD [address] [place], [place] 48[address]81 Specialty Concert Or Lecture Hall Manager General Surgery 07/25/18 Alana Kent APRN.SENIOR NET SOFTWARE DEVELOPER [address] [place] [address] Transplant Center 03/20/24 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 APRN.SENIOR NET SOFTWARE DEVELOPER [address] [place], [place] [address] Telecommunications Technician Internal Medicine 08/16/24 Marsteller, [facility] [address] [place] [phone] Pharmacist Pharmacy 03/08/25 ProviderLeona MD Telecommunications Technician 05/02/25 05/15/25 Window Installer Relationship Specialty Start Date End Date Zaida Gaston MD [address] [place] [address] PCP - General Internal Medicine 04/26/16 Loida Montiel I, DO [address] [address]69[address] Specialty Concert Or Lecture Hall Manager Nephrology 06/11/18 Heena Adams [address] [phone] Specialty Concert Or Lecture Hall Manager Endocrinology 06/11/18 Satish Phan MD [address] [place], [place] 276551 Specialty Concert Or Lecture Hall Manager General Surgery 07/25/18 Alana Kent APRN.SENIOR NET SOFTWARE DEVELOPER [address] [place] [address] Transplant Center 03/20/24 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 APRN.SENIOR NET SOFTWARE DEVELOPER [address] [place] [address] Telecommunications Technician Internal Medicine 08/16/24 MeyVerna [facility] [address] [place] [address] Pharmacist Pharmacy 03/08/25 Leona Esteves MD Telecommunications Technician 05/02/25 05/15/25 Window Installer Relationship Specialty Start Date End Date Zaida Gaston MD [address] [place] [address] PCP - General Internal Medicine 04/26/16 Loida Montiel I, DO [address] [address] Specialty Concert Or Lecture Hall Manager Nephrology 06/11/18 Heena Adams [address] [phone] Specialty Concert Or Lecture Hall Manager Endocrinology 06/11/18 Satish Phan MD [address] [place] [address] Specialty Concert Or Lecture Hall Manager General Surgery 07/25/18 Alana Kent APRN.SENIOR NET SOFTWARE DEVELOPER [address] [place] [address] Transplant Center 03/20/24 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 APRN.SENIOR NET SOFTWARE DEVELOPER [address] [place] [address] Telecommunications Technician Internal Medicine 08/16/24 MarstellerVerna, [facility] [address] [place] [address] Pharmacist Pharmacy 03/08/25 Leona Esteves MD Telecommunications Technician 05/02/25 05/15/25 Window Installer Relationship Specialty Start Date End Date Zaida Gaston MD [address] [place], [place] [address]15131 PCP - General Internal Medicine 04/26/16 Loida Montiel I, DO [address] [facility] [address] [address] Specialty Concert Or Lecture Hall Manager Nephrology 06/11/18 Heena Adams [address] [phone] Specialty Concert Or Lecture Hall Manager Endocrinology 06/11/18 Satish Phan MD [address] [place], [place] [address] Specialty Concert Or Lecture Hall Manager General Surgery 07/25/18 Alana Kent APRN.SENIOR NET SOFTWARE DEVELOPER [address] [place] [address] Transplant Center 03/20/24 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 APRN.SENIOR NET SOFTWARE DEVELOPER [address] [place], [place] [address] Telecommunications Technician Internal Medicine 08/16/24 Verna Jensen, [facility] [address] [place] [address] Pharmacist Pharmacy 03/08/25 ProviderLeona MD Telecommunications Technician 05/02/25 05/15/25 Goals (unrecognized section and content) [...] section and content) DATE CREATED AUTHOR 04/11/2024 [facility] DATE CREATED AUTHOR AUTHOR'S ORGANIZ ATION 04/27/2025 [facility] DATE CREATED AUTHOR AUTHOR'S ORGANIZ ATION 05/15/2025 [facility] FOR RECORDS PERTAINING TO PATIENTS WHO [...] BE BASED ON THE PRIMARY CLINICAL RECORDS. [facility] [employer] [facility]. provides no warranty or guarantee of the accuracy or completeness of information in this document.
--- OUTSIDE RECORDS SUMMARY | 2025-05-16 23:35 | XMS RPT_ITS | CCD ---
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 Zaida Gaston Primary Care Provider 1([facility])[phone] Dr. Toni Nelson Emergency Provider 1([facility])[phone] Henry Padilla Admit Provider 1([facility])[phone] Henry Padilla Attending Provider Dr. Henry Padilla Other Provider 1([facility])[phone] Shruti Jara Attending Provider Dr. Shruti Jara Other Provider 1([facility])[phone] Zaida Gaston Primary Care Provider 1([facility])[phone] Dr. Zaida Gaston Referring Provider 1([facility])[phone] Vj Cabral Attending Provider 1([facility])[phone] Dr. Toni Nelson Emergency Provider 1([facility])[phone] Isamar Smith Admit Provider Dr. Isamar Smith Referring Provider 1([facility])[phone] Dr. Isamar Smith Other Provider 1([facility])[phone] John Darnell Other Provider Dr. Joao Hayes Attending Provider 1([facility])[phone] Joao Hayes Other Provider Dr. [...] Heena Adams Unavailable Satish Phan MD Unavailable [facility], Verna Unavailable Dr. Zaida Gaston Primary Care Provider Dr. Waleska Phan Attending Provider Dr. Dona Medina Referring Provider Dr. Dona Medina Other Provider Ashli EXPEDITIONARY FORCE COMBAT SKILLS, EXPEDITIONARY FORCE COMBAT SKILLS-C Suzanne E Attending Provider Ashli EXPEDITIONARY [employer]CE COMBAT SKILLS, EXPEDITIONARY FORCE COMBAT SKILLS-C Suzanne E Referring Provider Aureliano EXPEDITIONARY [employer]CE COMBAT SKILLS, EXPEDITIONARY FORCE COMBAT SKILLS-C Jenna Attending Provider Aureliano EXPEDITIONARY [employer]CE COMBAT SKILLS, EXPEDITIONARY FORCE COMBAT SKILLS-C Jenna Referring Provider Dr. Mayo Levy Referring Provider Dr. Kerrie Henderson Attending Provider Dr. Zaida Gaston Referring Provider Amanda ROCHA, AJ Schaefer Attending Provider LAISHA Meza Attending Provider Dinesh Vick DO, Christine Unavailable Dr. Zaida Gaston Primary Care Provider Dr. Zaida Gaston Primary Care Provider Dr. Dona Medina Other Provider Ashli EXPEDITIONARY FORCE COMBAT SKILLS, EXPEDITIONARY FORCE COMBAT SKILLS-C Suzanne E Attending Provider [phone] Ashli EXPEDITIONARY [employer] COMB[employer] SKILLS, EXPEDITIONARY FORCE COMBAT SKILLS-C Suzanne E Referring Provider Dr. Chuy Santiago Emergency Provider Dr. Mayo Levy Admit Provider Dr. Mayo Leyv Other Provider Delmy Billy Other Provider Unavailable Dr. Amy Ureña Other Provider Dr. William Hayes Other Provider Dr. Kerrie Henderson Other Provider Dr. Awa Martínez Other Provider Bladimir EXPEDITIONARY [employer] COMB[employer] SKILLS, EXPEDITIONARY FORCE COMBAT SKILLS-C Vivian Other Provider Unavail justin Funes EXPEDITIONARY FORCE COMBAT SKILLS, EXPEDITIONARY FORCE COMBAT SKILLS-C John Other Provider AJ Josue Other Provider Unavailable Dr. Satish Nava Other Provider Dr. Shruti Jara Attending Provider Dr. Zaida Gaston Primary Care Provider Dr. Zaida Gaston Referring Provider LAISHA Meza Attending Provider Dr. Chuy Santiago Emergency Provider [phone] Mayo Levy Admit Provider Dr. Mayo Levy Referring Provider Dr. Mayo Levy Other Provider Delmy Billy Other Provider Unavailable Dr. Amy Ureña Other Provider Dr. William Hayes Other Provider Dr. Kerrie Henderson Other Provider Dr. Awa Martínez Other Provider Bladimir EXPEDITIONARY [employer] COMB[employer] SKILLS, EXPEDITIONARY FORCE COMBAT SKILLS-C Vivian Other Provider Unavail able Shantel EXPEDITIONARY FORCE COMBAT SKILLS, EXPEDITIONARY FORCE COMBAT SKILLS-C John Other Provider AJ Josue Other Provider Unavailable Dr. Satish Nava Other Provider Dr. Shruti Jara Attending Provider [phone] Tylor Rudd Attending Provider Dr. Zaida [...] Zaida Gaston MD Primary Care Provider Hedervary BEEF BONER.Alana POWELL Unavailable AMARA SLOAN Attending Unavailable NIA JAMES Referring Unavailable ZAIDA GASTON Primary Care Unavailable Xiang ePrez PA-C Unavailable [phone] Older BEEF BONER.Delia POWELL Unavailable Bogner PA-C, Amber Unavailable Ewa NORTON, Dr. Cerda Primary Care Provider Ewa NORTON, Dr. Cerda Referring Provider King CIERRA, Dr. Wilson Attending Provider Will CLAIRE, Dr. Bhakta Referring Provider Will CLAIRE, Dr. Bhakta Emergency Provider Ewa NORTON, Dr. Cerda Primary Care Provider Will CLAIRE, Dr. Bhakta Attending Provider Provider , Leona Unavailable Unavailable Leslie CLAIRE, Dr. Muñoz Emergency Provider [facility], Verna Unavailable Leslie CLAIRE, Dr. Muñoz [...] Marek NORTON, Dr. Shruti Brandon Admit Provider [phone] Maerk NORTON, Dr. Shruti Brandon Attending Provider Brandy [...] [facility], ZAIDA Primary Care Unavailable [facility] Unavailable YONY [...] times a day Blood-Glucose Meter,Continuous (DEXCOM G6 ATTENDANT CHILD ACTIVITY) misc (16 sources) Start: 05-18-20 Blood-Glucose Meter,Continuous (DEXCOM G6 ATTENDANT CHILD ACTIVITY) misc Indications: Diabetic polyneuropathy associated with type [...] Comment on above: Take 1 capsule by [facility] one time a week. escitalopram 10 mg [...] Comment on above: Take 1 capsule by [facility] daily at bedtime for 180 days. glucagon 3 mg nasal powder (20 sources) Antihypoglycemic Agent Start: 03-30-2021 glucagon 3 mg/actuation nasal spray (BAQSIMI) Use 1 [place] in the nose as needed for low blood sugar. May repeat after 15 minutes using a new device if there is no response. 3 Each 1 03/30/2021 Active Start: 03-30-2021 End: 08-23-2022 glucagon (GLUCAGON EMERGENCY KIT, HUMAN,) 1 mg injection Inject (1)one mg for insulin shock. 3 Each 1 03/30/2021 08/23/2022 Discontinued Comment on above: Use 1 [place] in the n ose as needed for [...] on above: Take [address] [facility] four times a day as [...] region of the penis polyethylene glycol 3350 [id number] mg / potassium chloride 2970 mg / sodium bicarbonate 6740 mg / sodium chloride 5860 mg / sodium sulfate 46930 mg powder for oral solution (1 source) [...] on above: Take [address] [facility] three times daily. cholecalciferol 0.025 [...] Comment on above: Take 1 tablet by [facility] q 24 HR. 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) drug therapy] Episodic Other aftercare (1 source) Taking high risk medication; Translations: [Other glass products inspector (current) drug therapy] 07-25-2023 Episodic Other aftercare (1 source) Post-discharge follow-up; Translations: [Encounter for follow-up examination after completed treatment for conditions other than malignant neoplasm] 02-05-2025 Episodic Other aftercare (1 source) Other senior living (current) drug therapy; Translations: [Medication management] Onset: [...] aftercare (20 sources) Transplant follow-up; Translations: [Other glass products inspector (current) drug therapy] Onset: 01-27-2025 Episodic Other aftercare (20 sources) Long-term current use of tacrolimus; Translations: [Encounter for therapeutic drug level monitoring] Onset: 01-27-2025 01-27-2025 Episodic Other aftercare (1 source) tapper helper (current) use of insulin; Translations: [tapper helper (current) use of insulin] Onset: 07-28-2024 Episodic [...] Profile (BMP )on 04-20-2025 BUN Normal 4-19 [facility] Comment on above: Result Comment: Canc elled via OM: Order cancelled - Patient discharged Performed By: #### L 500.2500 #### [facility] [address] [place], [address] BUN/CRE Normal 10-20 [facility] Comment on above: Result Comment: Canc elled via OM: Order cancelled - Patient discharged Performed By: #### L 500.2500 #### [facility] [address] [place], [address] Calcium Normal 7.6-11.0 [facility] Comment on above: Result Comment: Canc elled via OM: Order cancelled - Patient discharged Performed By: #### L 500.2500 #### [facility] [address] [place], [address] CL Normal 98-108 [facility] Comment on above: Result Comment: Canc elled via OM: Order cancelled - Patient discharged Performed By: #### L 500.2500 #### [facility] [address] [place], [address] CO2 Normal 21.0-32.0 [facility] Comment on above: Result Comment: Canc elled via OM: Order cancelled - Patient discharged Performed By: #### L 500.2500 #### [facility] [address] [place], [address] CREAT,SERUM Normal 0.70-1.20 [facility] Comment on above: Result Comment: Canc elled via OM: Order cancelled - Patient discharged Performed By: #### L 500.2500 #### [facility] [address] [place], [address] eGFR Normal >60 [facility] Comment on above: Result Comment: Canc elled via OM: Order cancelled - Patient discharged Performed By: #### L 500.2500 #### [facility] [address] [place], [address] GAP Normal 5-15 [facility] Comment on above: Result Comment: Canc elled via OM: Order cancelled - Patient discharged Performed By: #### L 500.2500 #### [facility] [address] [place], [address] GLU Normal 70-99 [facility] Comment on above: Result Comment: Canc elled via OM: Order cancelled - Patient discharged Performed By: #### L 500.2500 #### [facility] [address] [place], [address] Potassium Normal 3.3-5.1 [facility] Comment on above: Result Comment: Canc elled via OM: Order cancelled - Patient discharged Performed By: #### L 500.2500 #### [facility] [address] [place], [address] Basic Metabolic Profile (BMP) Normal 133-145 [facility] Comment on above: Result Comment: Canc elled via OM: Order cancelled - Patient discharged Performed By: #### L 500.2500 #### [facility] [address] [place], [address] CBC W/Diff, Automatedon 08-1 Absolute Neut Normal 2.0-7.7 [facility] Comment on above: Result Comment: Canc elled via OM: Order cancelled - Patient discharged Performed By: #### L 500.2500 #### [facility] [address] [place], [address] HCT Normal 40-54 [facility] Comment on above: Result Comment: Canc elled via OM: Order cancelled - Patient discharged Performed By: #### L 500.2500 #### [facility] [address] [place], [address] HGB Normal 13.0-16.5 [facility] Comment on above: Result Comment: Canc elled via OM: Order cancelled - Patient discharged Performed By: #### L 500.2500 #### [facility] [address] [place], [address] MCH Normal 27.0-32.0 [facility] Comment on above: Result Comment: Canc elled via OM: Order cancelled - Patient discharged Performed By: #### L 500.2500 #### [facility] [address] [place], [address] MCHC Normal 32-36 [facility] Comment on above: Result Comment: Canc elled via OM: Order cancelled - Patient discharged Performed By: #### L 500.2500 #### [facility] [address] [place], [address] MCV Normal 80-94 [facility] Comment on above: Result Comment: Canc elled via OM: Order cancelled - Patient discharged Performed By: #### L 500.2500 #### [facility] [address] [place], [address] NEUT% Normal 47-70 [facility] Comment on above: Result Comment: Canc elled via OM: Order cancelled - Patient discharged Performed By: #### L 500.2500 #### [facility] [address] [place], [address] PLT Normal 150-450 [facility] Comment on above: Result Comment: Canc elled via OM: Order cancelled - Patient discharged Performed By: #### L 500.2500 #### [facility] [address] [place], [address] RBC Normal 4.6-6.2 [facility] Comment on above: Result Comment: Canc elled via OM: Order cancelled - Patient discharged Performed By: #### L 500.2500 #### [facility] [address] [place], [address] RDW CV Normal 11.6-14.6 [facility] Comment on above: Result Comment: Canc elled via OM: Order cancelled - Patient discharged Performed By: #### L 500.2500 #### [facility] [address] [place], [address] RDW SD Normal 35.1-43.9 [facility] Comment on above: Result Comment: Canc elled via OM: Order cancelled - Patient discharged Performed By: #### L 500.2500 #### [facility] [address] [place], [address] WBC Normal 4.4-11.0 [facility] Comment on above: Result Comment: Canc elled via OM: Order cancelled - Patient discharged Performed By: #### L 500.2500 #### [facility] [address] [place], [address] Culture, Blood (WB)on 2024 CUB Blood cultures x2, f rom two different sites No growth in 5 days. Normal [facility] Comment on above: Performed By: #### L 500.2500, L100.0100 #### [facility] [address] [place], [address] Basic Metabolic Profile (BMP )on 04-19-2025 BUN Normal 4-19 [facility] Comment on above: Result Comment: Canc elled via OM: Order cancelled - Patient discharged Performed By: #### L 500.2500, L100.0100 #### [facility] [address] [place], [address] BUN/CRE Normal 10-20 [facility] Comment on above: Result Comment: Canc elled via OM: Order cancelled - Patient discharged Performed By: #### L 500.2500, L100.0100 #### [facility] [address] [place], [address] Calcium Normal 7.6-11.0 [facility] Comment on above: Result Comment: Canc elled via OM: Order cancelled - Patient discharged Performed By: #### L 500.2500, L100.0100 #### [facility] [address] [place], [address] CL Normal 98-108 [facility] Comment on above: Result Comment: Canc elled via OM: Order cancelled - Patient discharged Performed By: #### L 500.2500, L100.0100 #### [facility] [address] [place], [address] CO2 Normal 21.0-32.0 [facility] Comment on above: Result Comment: Canc elled via OM: Order cancelled - Patient discharged Performed By: #### L 500.2500, L100.0100 #### [facility] [address] [place], [address] CREAT,SERUM Normal 0.70-1.20 [facility] Comment on above: Result Comment: Canc elled via OM: Order cancelled - Patient discharged Performed By: #### L 500.2500, L100.0100 #### [facility] [address] [place], [address] eGFR Normal >60 [facility] Comment on above: Result Comment: Canc elled via OM: Order cancelled - Patient discharged Performed By: #### L 500.2500, L100.0100 #### [facility] [address] [place], [address] GAP Normal 5-15 [facility] Comment on above: Result Comment: Canc elled via OM: Order cancelled - Patient discharged Performed By: #### L 500.2500, L100.0100 #### [facility] [address] [place], [address] GLU Normal 70-99 [facility] Comment on above: Result Comment: Canc elled via OM: Order cancelled - Patient discharged Performed By: #### L 500.2500, L100.0100 #### [facility] [address] [place], [address] Potassium Normal 3.3-5.1 [facility] Comment on above: Result Comment: Canc elled via OM: Order cancelled - Patient discharged Performed By: #### L 500.2500, L100.0100 #### [facility] [address] [place], [address] Basic Metabolic Profile (BMP) Normal 133-145 [facility] Comment on above: Result Comment: Canc elled via OM: Order cancelled - Patient discharged Performed By: #### L 500.2500, L100.0100 #### [facility] [address] [place], [address] CBC W/Diff, Automatedon - Absolute Neut Normal 2.0-7.7 [facility] Comment on above: Result Comment: Canc elled via OM: Order cancelled - Patient discharged Performed By: #### L 500.2500, L100.0100 #### [facility] [address] [place], [address] HCT Normal 40-54 [facility] Comment on above: Result Comment: Canc elled via OM: Order cancelled - Patient discharged Performed By: #### L 500.2500, L100.0100 #### [facility] [address] [place], [address] HGB Normal 13.0-16.5 [facility] Comment on above: Result Comment: Canc elled via OM: Order cancelled - Patient discharged Performed By: #### L 500.2500, L100.0100 #### [facility] [address] [place], [address] MCH Normal 27.0-32.0 [facility] Comment on above: Result Comment: Canc elled via OM: Order cancelled - Patient discharged Performed By: #### L 500.2500, L100.0100 #### [facility] [address] [place], [address] MCHC Normal 32-36 [facility] Comment on above: Result Comment: Canc elled via OM: Order cancelled - Patient discharged Performed By: #### L 500.2500, L100.0100 #### [facility] [address] [place], [address] MCV Normal 80-94 [facility] Comment on above: Result Comment: Canc elled via OM: Order cancelled - Patient discharged Performed By: #### L 500.2500, L100.0100 #### [facility] [address] [place], [address] NEUT% Normal 47-70 [facility] Comment on above: Result Comment: Canc elled via OM: Order cancelled - Patient discharged Performed By: #### L 500.2500, L100.0100 #### [facility] [address] [place], [address] PLT Normal 150-450 [facility] Comment on above: Result Comment: Canc elled via OM: Order cancelled - Patient discharged Performed By: #### L 500.2500, L100.0100 #### [facility] [address] [place], [address] RBC Normal 4.6-6.2 [facility] Comment on above: Result Comment: Canc elled via OM: Order cancelled - Patient discharged Performed By: #### L 500.2500, L100.0100 #### [facility] [address] [place], [address] RDW CV Normal 11.6-14.6 [facility] Comment on above: Result Comment: Canc elled via OM: Order cancelled - Patient discharged Performed By: #### L 500.2500, L100.0100 #### [facility] [address] [place], [address] RDW SD Normal 35.1-43.9 [facility] Comment on above: Result Comment: Canc elled via OM: Order cancelled - Patient discharged Performed By: #### L 500.2500, L100.0100 #### [facility] [address] [place], [address] WBC Normal 4.4-11.0 [facility] Comment on above: Result Comment: Canc elled via OM: Order cancelled - Patient discharged Performed By: #### L 500.2500, L100.0100 #### [facility] [address] [place], [address] Basic Metabolic Profile (BMP )on 04-18-2025 BUN Normal 4-19 [facility] Comment on above: Result Comment: Canc elled via OM: Order cancelled - Patient discharged Performed By: #### L 500.2500, L100.0100 #### [facility] [address] [place], [address] BUN/CRE Normal 10-20 [facility] Comment on above: Result Comment: Canc elled via OM: Order cancelled - Patient discharged Performed By: #### L 500.2500, L100.0100 #### [facility] [address] [place], [address] Calcium Normal 7.6-11.0 [facility] Comment on above: Result Comment: Canc elled via OM: Order cancelled - Patient discharged Performed By: #### L 500.2500, L100.0100 #### [facility] [address] [place], [address] CL Normal 98-108 [facility] Comment on above: Result Comment: Canc elled via OM: Order cancelled - Patient discharged Performed By: #### L 500.2500, L100.0100 #### [facility] [address] [place], [address] CO2 Normal 21.0-32.0 [facility] Comment on above: Result Comment: Canc elled via OM: Order cancelled - Patient discharged Performed By: #### L 500.2500, L100.0100 #### [facility] [address] [place], [address] CREAT,SERUM Normal 0.70-1.20 [facility] Comment on above: Result Comment: Canc elled via OM: Order cancelled - Patient discharged Performed By: #### L 500.2500, L100.0100 #### [facility] [address] [place], [address] eGFR Normal >60 [facility] Comment on above: Result Comment: Canc elled via OM: Order cancelled - Patient discharged Performed By: #### L 500.2500, L100.0100 #### [facility] [address] [place], [address] GAP Normal 5-15 [facility] Comment on above: Result Comment: Canc elled via OM: Order cancelled - Patient discharged Performed By: #### L 500.2500, L100.0100 #### [facility] [address] [place], [address] GLU Normal 70-99 [facility] Comment on above: Result Comment: Canc elled via OM: Order cancelled - Patient discharged Performed By: #### L 500.2500, L100.0100 #### [facility] [address] [place], [address] Potassium Normal 3.3-5.1 [facility] Comment on above: Result Comment: Canc elled via OM: Order cancelled - Patient discharged Performed By: #### L 500.2500, L100.0100 #### [facility] [address] [place], [address] Basic Metabolic Profile (BMP) Normal 133-145 [facility] Comment on above: Result Comment: Canc elled via OM: Order cancelled - Patient discharged Performed By: #### L 500.2500, L100.0100 #### [facility] [address] [place], [address] CBC W/Diff, Automatedon 08-1 0-2024 Absolute Neut Normal 2.0-7.7 [facility] Comment on above: Result Comment: Canc elled via OM: Order cancelled - Patient discharged Performed By: #### L 500.2500, L100.0100 #### [facility] [address] [place], [address] HCT Normal 40-54 [facility] Comment on above: Result Comment: Canc elled via OM: Order cancelled - Patient discharged Performed By: #### L 500.2500, L100.0100 #### [facility] [address] [place], [address] HGB Normal 13.0-16.5 [facility] Comment on above: Result Comment: Canc elled via OM: Order cancelled - Patient discharged Performed By: #### L 500.2500, L100.0100 #### [facility] [address] [place], [address] MCH Normal 27.0-32.0 [facility] Comment on above: Result Comment: Canc elled via OM: Order cancelled - Patient discharged Performed By: #### L 500.2500, L100.0100 #### [facility] [address] [place], [address] MCHC Normal 32-36 [facility] Comment on above: Result Comment: Canc elled via OM: Order cancelled - Patient discharged Performed By: #### L 500.2500, L100.0100 #### [facility] [address] [place], [address] MCV Normal 80-94 [facility] Comment on above: Result Comment: Canc elled via OM: Order cancelled - Patient discharged Performed By: #### L 500.2500, L100.0100 #### [facility] [address] [place], [address] NEUT% Normal 47-70 [facility] Comment on above: Result Comment: Canc elled via OM: Order cancelled - Patient discharged Performed By: #### L 500.2500, L100.0100 #### [facility] [address] [place], [address] PLT Normal 150-450 [facility] Comment on above: Result Comment: Canc elled via OM: Order cancelled - Patient discharged Performed By: #### L 500.2500, L100.0100 #### [facility] [address] [place], [address] RBC Normal 4.6-6.2 [facility] Comment on above: Result Comment: Canc elled via OM: Order cancelled - Patient discharged Performed By: #### L 500.2500, L100.0100 #### [facility] [address] [place], [address] RDW CV Normal 11.6-14.6 [facility] Comment on above: Result Comment: Canc elled via OM: Order cancelled - Patient discharged Performed By: #### L 500.2500, L100.0100 #### [facility] [address] [place], [address] RDW SD Normal 35.1-43.9 [facility] Comment on above: Result Comment: Canc elled via OM: Order cancelled - Patient discharged Performed By: #### L 500.2500, L100.0100 #### [facility] [address] [place], [address] WBC Normal 4.4-11.0 [facility] Comment on above: Result Comment: Canc elled via OM: Order cancelled - Patient discharged Performed By: #### L 500.2500, L100.0100 #### [facility] [address] [place], [address] Culture, Blood (WB)on 08-10- 2025 CUB No growth in 5 days. Normal [facility] Comment on above: Performed By: #### L 500.2500, L100.0100 #### [facility] [address] [place], [address] Urine Cultureon 04-18-2025 [facility] Copy of report sent to Infection Control Printer [id number] 04/18/2527 KOBE. Urine Culture Urine Culture Urine Culture Acinetobacter baumannii [place] Count >100,000 Meth. resistant Staph. aureus Meth. [...] S Vancomycin Islt PARTH 1 S Normal [facility] Comment on above: Performed By: #### L 501.080 #### [facility] [address] [place], [address] Absolute lymphocyte countOrd ered By: Shruti Jara on 04-17-2025 Lymphocytes Auto (Unsp spec) [#/Vol] 0.97 10*3/uL 0.83-4.51 [facility] Anion gap in Serum or Plasma Ordered By: Shruti Jara on 04-17-2025 Anion gap [Moles/Vol] 11 mmol/L - [facility] Automated lymphocyte count a s percentage of total leukocytesOrdered By: Shruti Jara on 04-17-2025 Lymphocytes/100 WBC Auto (Unsp spec) 20.3 % [facility] BUN/creatinine ratioOrdered By: Shruti Jara on 04-17-2025 Urea nitrogen/Creatinine [Mass ratio] 15.2 mg/mg - [facility] Basic Metabolic Profile (BMP )on 04-17-2025 BUN/CRE 15.2 RATIO Normal - [facility] Comment on above: Performed By: #### L 500.2500, L100.0100 #### [facility] [address], [address] Calcium [Mass/Vol] 8.8 mg/dL Normal 7.6-11.0 [facility] Comment on above: Performed By: #### L 500.2500, L100.0100 #### [facility] [address] [place], [address] Chloride [Moles/Vol] 107 mmol/L Normal 98-108 [facility] Comment on above: Performed By: #### L 500.2500, L100.0100 #### [facility] [address] [place], [address] CO2 [Moles/Vol] 19.1 mmol/L Low 21.0-32.0 [facility] Comment on above: Performed By: #### L 500.2500, L100.0100 #### [facility] [address] [place], [address] Creatinine [Mass/Vol] 0.98 mg/dL Normal 0.70-1.20 [facility] Comment on above: Performed By: #### L 500.2500, L100.0100 #### [facility] [address] [place], [address] ECRCL 81.43 ml/min Normal 50-250 [facility] Comment on above: Performed By: #### L 500.2500, L100.0100 #### [facility] [address] [place], [address] GAP 11 Normal 5-15 [facility] Comment on above: Performed By: #### L 500.2500, L100.0100 #### [facility] [address] [place], [address] GFR/1.73 sq M.predicted among non-blacks MDRD (S/P/Bld) [Vol rate/Area] 91 mL/min/{1.73_m2} Normal >60 [facility] Comment on above: Result Comment: mL/m in/1.73m2 CKD-EPI Creatinine Equation (2020) Performed By: #### L 500.2500, L100.0100 #### [facility] [address] [place], [address] Glucose [Mass/Vol] 219 mg/dL High 70-99 [facility] Comment on above: Performed By: #### L 500.2500, L100.0100 #### [facility] [address] [place], [address] Potassium [Moles/Vol] 3.8 mmol/L Normal 3.3-5.1 [facility] Comment on above: Performed By: #### L 500.2500, L100.0100 #### [facility] [address] [place], [address] Sodium [Moles/Vol] 137 mmol/L Normal 133-145 [facility] Comment on above: Performed By: #### L 500.2500, L100.0100 #### [facility] [address] [place], [address] Urea nitrogen [Mass/Vol] 15 mg/dL Normal 4-19 [facility] Comment on above: Performed By: #### L 500.2500, L100.0100 #### [facility] [address] [place], [address] Basophil percentageOrdered B y: Shruti Jara on 04-17-2025 Basophils/100 WBC (Bld) 0.4 % 0-1 [facility] Bedside Glucoseon 04-17-2025 FINGERSTICK GLU 302 mg/dL High 74-106 [facility] Comment on above: Result Comment: RACHEL GEMENT OF PATIENT CARE PER NURSING PROTOCOL Performed By: #### L 500.2500, L100.0100 #### [facility] [address] [place], [address] FINGERSTICK GLU 372 mg/dL High [address] [facility] Comment on above: Result Comment: RACHEL GEMENT OF PATIENT CARE PER NURSING PROTOCOL Performed By: #### L 500.2500, L100.0100 #### [facility] [address] [place], [address] FINGERSTICK GLU 306 mg/dL High 74-106 [facility] Comment on above: Result Comment: RACHEL GEMENT OF PATIENT CARE PER NURSING PROTOCOL Performed By: #### L 500.2500 #### [facility] [address] [place], [address] FINGERSTICK GLU 195 mg/dL High [address] [place] [address] Comment on above: Result Comment: RACHEL GEMENT OF PATIENT CARE PER NURSING PROTOCOL Performed By: #### L 500.2500, L100.0100 #### [facility] [address] [place], [address] CBC W/Diff, Automatedon 08-0 9-2024 Absolute Lymph 0.97 X10 3/uL Normal 0.83-4.51 [facility] Comment on above: Performed By: #### L 500.2500, L100.0100 #### [facility] [address] [place], [address] Absolute Neut 3.3 X10 3/uL Normal 2.0-7.7 [facility] Comment on above: Performed By: #### L 500.2500, L100.0100 #### [facility] [address] [place], [address] Basophils/100 WBC (Bld) 0.4 % Normal 0-1 [facility] Comment on above: Performed By: #### L 500.2500, L100.0100 #### [facility] [address] [place], [address] Eosinophils/100 WBC (Bld) 1.5 % Normal 0-5 [facility] Comment on above: Performed By: #### L 500.2500, L100.0100 #### [facility] [address] [place], [address] Erythrocyte distribution width (RBC) [Ratio] 12.2 % Normal 11.6-14.6 [facility] Comment on above: Performed By: #### L 500.2500, L100.0100 #### [facility] [address] [place], [address] Hematocrit (Bld) [Volume fraction] 31.3 % Low 40-54 [facility] Comment on above: Performed By: #### L 500.2500, L100.0100 #### [facility] [address] [place], [address] Hemoglobin (Bld) [Mass/Vol] 10.3 g/dL Low 13.0-16.5 [facility] Comment on above: Performed By: #### L 500.2500, L100.0100 #### [facility] [address] [place], [address] IG% 0.400 Normal 0.0-0.9 [facility] Comment on above: Result Comment: IG% - Immature Granulocytes (promyelocytes, myelocytes and metamyelocytes) > 1% indicates that a LEFT SHIFT is Present. Performed By: #### L 500.2500, L100.0100 #### [facility] [address] [place], [address] Lymphocytes/100 WBC (Bld) 20.3 % Normal 19-41 [facility] Comment on above: Performed By: #### L 500.2500, L100.0100 #### [facility] [address] [place], [address] MCH (RBC) [Entitic mass] 29.1 pg Normal 27.0-32.0 [facility] Comment on above: Performed By: #### L 500.2500, L100.0100 #### [facility] [address] [place], [address] MCHC (RBC) [Mass/Vol] 32.9 g/dL Normal 32-36 [facility] Comment on above: Performed By: #### L 500.2500, L100.0100 #### [facility] [address] [place], [address] MCV (RBC) [Entitic vol] 88.4 fL Normal 80-94 [facility] Comment on above: Performed By: #### L 500.2500, L100.0100 #### [facility] [address] [place], [address] Monocytes/100 WBC (Bld) 7.9 % Normal 0-10 [facility] Comment on above: Performed By: #### L 500.2500, L100.0100 #### [facility] [address] [place], [address] Neutrophils/100 WBC (Bld) 69.5 % Normal 47-70 [facility] Comment on above: Performed By: #### L 500.2500, L100.0100 #### [facility] [address] [place], [address] Nucleated RBC (Bld) [#/Vol] 0 10*3/uL Normal 0-5 [facility] Comment on above: Performed By: #### L 500.2500, L100.0100 #### [facility] [address] [place], [address] Platelet mean volume (Bld) [Entitic vol] 10.1 fL Normal 6.2-12.0 [facility] Comment on above: Performed By: #### L 500.2500, L100.0100 #### [facility] [address] [place], [address] Platelets (Bld) [#/Vol] 201 10*3/uL Normal 150-450 [facility] Comment on above: Performed By: #### L 500.2500, L100.0100 #### [facility] [address] [place], [address] RBC (Bld) [#/Vol] 3.54 10*6/uL Low 4.6-6.2 [facility] Comment on above: Performed By: #### L 500.2500, L100.0100 #### [facility] [address] [place], [address] RDW SD 39.8 fl Normal 35.1-43.9 [facility] Comment on above: Performed By: #### L 500.2500, L100.0100 #### [facility] [address] [place], [address] WBC (Bld) [#/Vol] 4.8 10*3/uL Normal 4.4-11.0 [facility] Comment on above: Performed By: #### L 500.2500, L100.0100 #### [facility] [address] [place], [address] Carbon dioxide, total [Moles /volume] in Central venous bloodOrdered By: Shruti Marek on 04-17-2025 CO2 [Moles/Vol] 19.1 mmol/L Low 21.0-32.0 [facility] Chloride assayOrdered By: Na na Marek on 04-17-2025 Chloride [Moles/Vol] 107 mmol/L 98-108 [facility] Culture, Blood (WB)on 2024 CUB Blood cultures x2, f rom two different sites GRAM STAIN = GRAM POSITIVE COCCI Culture, Blood (WB) #2, 3 Possible skin contamination, further Identification and sensitivity will be performed only by physician's request. Culture, Blood (WB) RESULTS CALLED TO COLLETTE ALONSO 04/15/25 0934 Nancy Townsend. REPORT READ BACK BY CELESTE. Culture, Blood (WB) STAPH AUREUS RESULTS CALLED TO [facility] 04/16/25 0817 Lashae Fernando. REPORT READ BACK BY . Culture, Blood (WB) MRSA RESULTS CALLED TO XIANG Moya V. 04/17/25 0720 Lashae Fernando. REPORT READ BACK BY . Culture, Blood (WB) Copy of report sent to Infection Control Printer [id number] 04/17/25 0795 KOBE. Culture, Blood (WB) Culture, Blood (WB) Meth. resistant Staph. aureus Amount Growth Growth mecA Testing not performed [employer] Amount Growth Growth Coag Negative Staph Amount [...] S Vancomycin Islt PARTH <=0.5 S Normal [facility] Comment on above: Performed By: #### L 501.080 #### [facility] [address] [place], [address] Eosinophil percentageOrdered By: Shruti Jara on 04-17-2025 Eosinophils/100 WBC (Bld) 1.5 % 0-5 [facility] Erythrocyte distribution wid th ratioOrdered By: Shruti Jara on 04-17-2025 Erythrocyte distribution width (RBC) [Ratio] 12.2 % 11.6-14.6 [facility] Erythrocyte distribution wid th standard deviationOrdered By: Shruti Jara on 04-17-2025 Erythrocyte distribution width (RBC) [Ratio] 39.8 fl 35.1-43.9 [facility] Glomerular filtration rate ( GFR) estimation/1.73 sq m using serum, plasma, or whole bOrdered By: Shruti Jara on 04-17-2025 GFR/1.73 sq M.predicted among non-blacks MDRD (S/P/Bld) [Vol rate/Area] 91 mL/min/{1.73_m2} >60 [facility] deOrdered By: Shruti Jara on 04-17-2025 Glucose [Mass/Vol] 302 mg/dL High 74-106 [facility] Hematocrit Auto (Bld) [Volum e fraction]Ordered By: Shruti Jara 04-17-2025 Hematocrit (Bld) [Volume fraction] 31.3 % Low 40-54 [facility] Hemoglobin measurementOrdere d By: Shruti Jara on 04-17-2025 Hemoglobin (Bld) [Mass/Vol] 10.3 g/dL Low 13.0-16.5 [facility] Immature granulocytes/100 WB C Auto (Bld)Ordered By: Shruti Jara 04-17-2025 Immature granulocytes/100 WBC (Bld) 0.400 % 0.0-0.9 [facility] MCV (mean corpuscular volume ) determinationOrdered By: Shruti Jara 04-17-2025 MCV (RBC) [Entitic vol] 88.4 fL 80-94 [facility] Mean corpuscular hemoglobin (MCH) determinationOrdered By: Shruti Jara on 04-17-2025 MCH (RBC) [Entitic mass] 29.1 pg 27.0-32.0 [facility] Monocyte percentageOrdered B y: Shruti Jara on 04-17-2025 Monocytes/100 WBC (Bld) 7.9 % 0-10 [facility] Neutrophil percentageOrdered By: Shruti Jara on 04-17-2025 Neutrophils/100 WBC (Bld) 69.5 % 47-70 [facility] Platelet countOrdered By: Na na Marek on 04-17-2025 Platelets (Bld) [#/Vol] 201 10*3/uL 150-450 [facility] Potassium measurement (mass/ volume)Ordered By: Shruti Jara on 04-17-2025 Potassium (Unsp spec) [Mass/Vol] 3.8 mmol/L 3.3-5.1 [facility] RBC Auto (Bld) [#/Vol]Ordere d By: Shruti Jara on 04-17-2025 RBC (Bld) [#/Vol] 3.54 10*6/uL Low 4.6-6.2 [facility] Serum creatinine measurement (mass/volume)Ordered By: Shruti Jara on 04-17-2025 Creatinine [Mass/Vol] 0.98 mg/dL 0.70-1.20 [facility] Serum glucose measurement (m ass/volume)Ordered By: Shruti Jara on 04-17-2025 Glucose [Mass/Vol] 219 mg/dL High 70-99 [facility] Serum or plasma calcium regi urement (mass/volume)Ordered By: Shruti Jara on 04-17-2025 Calcium [Mass/Vol] 8.8 mg/dL 7.6-11.0 [facility] Serum or plasma urea nitroge n measurement (mass/volume)Ordered By: Shruti Jara on 04-17-2025 Urea nitrogen [Mass/Vol] 15 mg/dL 4-19 [facility] Sodium levelOrdered By: Shruti Jara on 04-17-2025 Sodium [Moles/Vol] 137 mmol/L 133-145 [facility] Trough vancomycin levelOrder ed By: Satish Nava on 04-17-2025 Vancomycin trough [Mass/Vol] 18.5 ug/mL High 5.0-15.0 [facility] Vancomycin, Trough Levelon 0 04-17-2025 VANCO, TROUGH 18.5 ug/mL High 5.0-15.0 [facility] Comment on above: Order Comment: Comme nts: DRAW 30 MIN PRIOR TO [id number] Result Comment: Nilson mmended goal trough ranges [...] (Ventilator/Healtcare Associated) -Sepsis PLEASE CONTACT PHARMACY SERVICES (#[id number]) FOR INTERPRETATION OF RESULTS. Performed By: #### L 500.2500, L100.0100 #### [facility] [address] [facility] [place], [place], [id number] White blood cell (WBC) count Ordered By: Shruti Jara on 04-17-2025 WBC (Bld) [#/Vol] 4.8 10*3/uL 4.4-11.0 [facility] GPC IDon 04-16-2025 GPC ID Enterococcus sp. Not Detected Listeria spp Not Detected NAAT METHOD Testing was performed using nucleic acid amplification Staphylococcus sp. A DETECTED A Streptococcus spp. Not Detected mecA A mecA Resistance Marker Detected A Cat/vanB Not Detected Staphylococcus epidermidis Normal [facility] Comment on above: Performed By: #### L 501.080 #### [facility] [address] [place], [place], [address] Basic Metabolic Profile (BMP )on 04-16-2025 BUN/CRE 15.0 RATIO Normal 10-20 [facility] Comment on above: Performed By: #### L 500.2500 #### [facility] [address] [place], [address] Calcium [Mass/Vol] 9.0 mg/dL Normal 7.6-11.0 [facility] Comment on above: Performed By: #### L 500.2500 #### [facility] [address] [place], [address] Chloride [Moles/Vol] 106 mmol/L Normal 98-108 [facility] Comment on above: Performed By: #### L 500.2500 #### [facility] [address] [place], [address] CO2 [Moles/Vol] 19.9 mmol/L Low 21.0-32.0 [facility] Comment on above: Performed By: #### L 500.2500 #### [facility] [address] [place], [address] Creatinine [Mass/Vol] 1.08 mg/dL Normal 0.70-1.20 [facility] Comment on above: Performed By: #### L 500.2500 #### [facility] [address] [place], [address] ECRCL 73.89 ml/min Normal 50-250 [facility] Comment on above: Performed By: #### L 500.2500 #### [facility] [address] [place], [address] GAP 10 Normal 5-15 [facility] Comment on above: Performed By: #### L 500.2500 #### [facility] [address] [place], [address] GFR/1.73 sq M.predicted among non-blacks MDRD (S/P/Bld) [Vol rate/Area] 81 mL/min/{1.73_m2} Normal >60 [facility] Comment on above: Result Comment: mL/m in/1.73m2 CKD-EPI Creatinine Equation (2020) Performed By: #### L 500.2500 #### [facility] [address] [place], [address] Glucose [Mass/Vol] 153 mg/dL High 70-99 [facility] Comment on above: Performed By: #### L 500.2500 #### [facility] [address] [place], [address] Potassium [Moles/Vol] 3.5 mmol/L Normal 3.3-5.1 [facility] Comment on above: Performed By: #### L 500.2500 #### [facility] [address] [place], [address] Sodium [Moles/Vol] 135 mmol/L Normal 133-145 [facility] Comment on above: Performed By: #### L 500.2500 #### [facility] [address] [place], [address] Urea nitrogen [Mass/Vol] 16 mg/dL Normal 4-19 [facility] Comment on above: Performed By: #### L 500.2500 #### [facility] [address] [place], [address] Bedside Glucoseon 04-16-2025 FINGERSTICK GLU 268 mg/dL High 74-106 [facility] Comment on above: Result Comment: RACHEL GEMENT OF PATIENT CARE PER NURSING PROTOCOL Performed By: #### L 500.2500 #### [facility] [address] [place], [address] FINGERSTICK GLU 309 mg/dL High 74-106 [facility] Comment on above: Result Comment: RACHEL GEMENT OF PATIENT CARE PER NURSING PROTOCOL Performed By: #### L 500.2500 #### [facility] [address] [place], [address] FINGERSTICK GLU 211 mg/dL High 74-106 [facility] Comment on above: Result Comment: RACHEL GEMENT OF PATIENT CARE PER NURSING PROTOCOL Performed By: #### L 501.080 #### [facility] [address] [place], [address] FINGERSTICK GLU 148 mg/dL High 74-106 [facility] Comment on above: Result Comment: RACHEL GEMENT OF PATIENT CARE PER NURSING PROTOCOL Performed By: #### L 500.2500 #### [facility] [address] [place], [address] FINGERSTICK GLU 220 mg/dL High 74-106 [facility] Comment on above: Result Comment: RACHEL GEMENT OF PATIENT CARE PER NURSING PROTOCOL Performed By: #### L 500.2500 #### [facility] [address] [place], [address] CBC W/Diff, Automatedon 08-0 8-2025 Absolute Lymph 1.31 X10 3/uL Normal 0.83-4.51 [facility] Comment on above: Performed By: #### L 500.2500 #### [facility] [address] [place], [address] Absolute Neut 4.8 X10 3/uL Normal 2.0-7.7 [facility] Comment on above: Performed By: #### L 500.2500 #### [facility] [address] [place], [address] Basophils/100 WBC (Bld) 0.3 % Normal 0-1 [facility] Comment on above: Performed By: #### L 500.2500 #### [facility] [address] [place], [address] Eosinophils/100 WBC (Bld) 0.4 % Normal 0-5 [facility] Comment on above: Performed By: #### L 500.2500 #### [facility] [address] [place], [address] Erythrocyte distribution width (RBC) [Ratio] 12.3 % Normal 11.6-14.6 [facility] Comment on above: Performed By: #### L 500.2500 #### [facility] [address] [place], [address] Hematocrit (Bld) [Volume fraction] 30.4 % Low 40-54 [facility] Comment on above: Performed By: #### L 500.2500 #### [facility] [address] [place], [address] Hemoglobin (Bld) [Mass/Vol] 10.0 g/dL Low 13.0-16.5 [facility] Comment on above: Performed By: #### L 500.2500 #### [facility] [address] [place], [address] IG% 0.100 Normal 0.0-0.9 [facility] Comment on above: Result Comment: IG% - Immature Granulocytes (promyelocytes, myelocytes and metamyelocytes) > 1% indicates that a LEFT SHIFT is Present. Performed By: #### L 500.2500 #### [facility] [address] [place], [address] Lymphocytes/100 WBC (Bld) 19.2 % Normal 19-41 [facility] Comment on above: Performed By: #### L 500.2500 #### [facility] [address] [place], [address] MCH (RBC) [Entitic mass] 29.6 pg Normal 27.0-32.0 [facility] Comment on above: Performed By: #### L 500.2500 #### [facility] [address] [place], [address] MCHC (RBC) [Mass/Vol] 32.9 g/dL Normal 32-36 [facility] Comment on above: Performed By: #### L 500.2500 #### [facility] [address] [place], [address] MCV (RBC) [Entitic vol] 89.9 fL Normal 80-94 [facility] Comment on above: Performed By: #### L 500.2500 #### [facility] [address] [place], [address] Monocytes/100 WBC (Bld) 9.5 % Normal 0-10 [facility] Comment on above: Performed By: #### L 500.2500 #### [facility] [address] [place], [address] Neutrophils/100 WBC (Bld) 70.5 % High 47-70 [facility] Comment on above: Performed By: #### L 500.2500 #### [facility] [address] [place], [address] Nucleated RBC (Bld) [#/Vol] 0 10*3/uL Normal 0-5 [facility] Comment on above: Performed By: #### L 500.2500 #### [facility] [address] [place], [address] Platelet mean volume (Bld) [Entitic vol] 9.4 fL Normal 6.2-12.0 [facility] Comment on above: Performed By: #### L 500.2500 #### [facility] [address] [place], [address] Platelets (Bld) [#/Vol] 197 10*3/uL Normal 150-450 [facility] Comment on above: Performed By: #### L 500.2500 #### [facility] [address] [place], [address] RBC (Bld) [#/Vol] 3.38 10*6/uL Low 4.6-6.2 [facility] Comment on above: Performed By: #### L 500.2500 #### [facility] [address] [place], [address] RDW SD 40.1 fl Normal 35.1-43.9 [facility] Comment on above: Performed By: #### L 500.2500 #### [facility] [address] [place], [place], [address] WBC (Bld) [#/Vol] 6.8 10*3/uL Normal 4.4-11.0 [facility] Comment on above: Performed By: #### L 500.2500 #### [facility] [address] [place], [address] Consultation - Infectious Dx on 04-16-2025 Consultation - Infectious Dx [facility] Medical Records Department [address] [place] [address] Consultation - Infectious Dx 04/16/25 1019 MR#: [id number] Acct: [id number] Name: ITALO BURGOS Rep #: [id number] : 1970 54 From: Satish Nava MD PCP: Dr. Zaida Gaston MD Status:ADM IN Location: [place] [address] Assessment Plan Assessment/Plan (1) Kidney transplant recipient: [...] performed and neg except as noted above. 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 Normal [facility] Echo Complete W/ Contraston 04-16-2025 Echo Complete W/ Contrast [facility] [address] [place] [address] Echo Complete W/ Contrast 04/16/25 1501 MR#: [id number] Acct: [id number] Name: ITALO BURGOS Rep #: [id number] : 1970 54 From: Anila Flores MD [...] Dictated: 04/16/25 1501 Date Transcribed: 04/16/25 1640 Regional Administrative Assistant: Signed Normal [facility] Echocardiogram study reportO rdered By: Anila Flores on 04-16-2025 Study report [facility] Work Phone: Basic Metabolic Profile (BMP )on 04-15-2025 BUN/CRE 19.3 RATIO Normal 10-20 [facility] Comment on above: Performed By: #### L 500.2500, L100.0100 #### [facility] [address] [place], [address] Calcium [Mass/Vol] 9.1 mg/dL Normal 7.6-11.0 [facility] [facility] Comment on above: Performed By: #### L 500.2500, L100.0100 #### [facility] [address] [place], [address] Chloride [Moles/Vol] 104 mmol/L Normal 98-108 [facility] Comment on above: Performed By: #### L 500.2500, L100.0100 #### [facility] [address] [place], [address] CO2 [Moles/Vol] 21.9 mmol/L Normal 21.0-32.0 [facility] Comment on above: Performed By: #### L 500.2500, L100.0100 #### [facility] [address] [place], [address] Creatinine [Mass/Vol] 1.10 mg/dL Normal 0.70-1.20 [facility] Comment on above: Performed By: #### L 500.2500, L100.0100 #### [facility] [address] [place], [address] ECRCL 72.55 ml/min Normal 50-250 [facility] Comment on above: Performed By: #### L 500.2500, L100.0100 #### [facility] [address] [place], [address] GAP 9 Normal 5-15 [facility] Comment on above: Performed By: #### L 500.2500, L100.0100 #### [facility] [address] [place], [address] GFR/1.73 sq M.predicted among non-blacks MDRD (S/P/Bld) [Vol rate/Area] 79 mL/min/{1.73_m2} Normal >60 [facility] Comment on above: Result Comment: mL/m in/1.73m2 CKD-EPI Creatinine Equation (2020) Performed By: #### L 500.2500, L100.0100 #### [facility] [address] [place], [address] Glucose [Mass/Vol] 267 mg/dL High 70-99 [facility] Comment on above: Performed By: #### L 500.2500, L100.0100 #### [facility] [address] [place], [address] Potassium [Moles/Vol] 4.1 mmol/L Normal 3.3-5.1 [facility] Comment on above: Performed By: #### L 500.2500, L100.0100 #### [facility] [address] [place], [address] Sodium [Moles/Vol] 136 mmol/L Normal 133-145 [facility] Comment on above: Performed By: #### L 500.2500, L100.0100 #### [facility] [address] [place], [address] Urea nitrogen [Mass/Vol] 21 mg/dL High 4-19 [facility] Comment on above: Performed By: #### L 500.2500, L100.0100 #### [facility] [address] [place], [address] Bedside Glucoseon 04-15-2025 FINGERSTICK GLU 331 mg/dL High 74-106 [facility] Comment on above: Result Comment: RACHEL GEMENT OF PATIENT CARE PER NURSING PROTOCOL Performed By: #### L 501.080 #### [facility] [address] [place], [address] FINGERSTICK GLU 241 mg/dL High 74-106 [facility] Comment on above: Result Comment: RACHEL GEMENT OF PATIENT CARE PER NURSING PROTOCOL Performed By: #### L 501.080 #### [facility] [address] [place], [address] CBC W/Diff, Automatedon 08-0 7-2024 Absolute Lymph 0.92 X10 3/uL Normal 0.83-4.51 [facility] Comment on above: Performed By: #### L 500.2500, L100.0100 #### [facility] [address] [place], [address] Absolute Neut 9.8 X10 3/uL High 2.0-7.7 [facility] Comment on above: Performed By: #### L 500.2500, L100.0100 #### [facility] [address] [place], [address] Basophils/100 WBC (Bld) 0.3 % Normal 0-1 [facility] Comment on above: Performed By: #### L 500.2500, L100.0100 #### [facility] [address] [place], [address] Eosinophils/100 WBC (Bld) 0.2 % Normal 0-5 [facility] Comment on above: Performed By: #### L 500.2500, L100.0100 #### [facility] [address] [place], [address] Erythrocyte distribution width (RBC) [Ratio] 12.5 % Normal 11.6-14.6 [facility] Comment on above: Performed By: #### L 500.2500, L100.0100 #### [facility] [address] [place], [address] Hematocrit (Bld) [Volume fraction] 34.4 % Low 40-54 [facility] Comment on above: Performed By: #### L 500.2500, L100.0100 #### [facility] [address] [place], [address] Hemoglobin (Bld) [Mass/Vol] 11.3 g/dL Low 13.0-16.5 [facility] Comment on above: Performed By: #### L 500.2500, L100.0100 #### [facility] [address] [place], [address] IG% 0.300 Normal 0.0-0.9 [facility] Comment on above: Result Comment: IG% - Immature Granulocytes (promyelocytes, myelocytes and metamyelocytes) > 1% indicates that a LEFT SHIFT is Present. Performed By: #### L 500.2500, L100.0100 #### [facility] [address] [place], [address] Lymphocytes/100 WBC (Bld) 7.9 % Low 19-41 [facility] Comment on above: Performed By: #### L 500.2500, L100.0100 #### [facility] [address] [place], [address] MCH (RBC) [Entitic mass] 29.1 pg Normal 27.0-32.0 [facility] Comment on above: Performed By: #### L 500.2500, L100.0100 #### [facility] [address] [place], [address] MCHC (RBC) [Mass/Vol] 32.8 g/dL Normal 32-36 [facility] Comment on above: Performed By: #### L 500.2500, L100.0100 #### [facility] [address] [place], [address] MCV (RBC) [Entitic vol] 88.7 fL Normal 80-94 [facility] Comment on above: Performed By: #### L 500.2500, L100.0100 #### [facility] [address] [place], [address] Monocytes/100 WBC (Bld) 7.4 % Normal 0-10 [facility] Comment on above: Performed By: #### L 500.2500, L100.0100 #### [facility] [address] [place], [address] Neutrophils/100 WBC (Bld) 83.9 % High 47-70 [facility] Comment on above: Performed By: #### L 500.2500, L100.0100 #### [facility] [address] [place], [address] Nucleated RBC (Bld) [#/Vol] 0 10*3/uL Normal 0-5 [facility] Comment on above: Performed By: #### L 500.2500, L100.0100 #### [facility] [address] [place], [address] Platelet mean volume (Bld) [Entitic vol] 9.1 fL Normal 6.2-12.0 [facility] Comment on above: Performed By: #### L 500.2500, L100.0100 #### [facility] [address] [place], [address] Platelets (Bld) [#/Vol] 224 10*3/uL Normal 150-450 [facility] Comment on above: Performed By: #### L 500.2500, L100.0100 #### [facility] [address] [place], [address] RBC (Bld) [#/Vol] 3.88 10*6/uL Low 4.6-6.2 [facility] Comment on above: Performed By: #### L 500.2500, L100.0100 #### [facility] [address] [place], [address] RDW SD 40.5 fl Normal 35.1-43.9 [facility] Comment on above: Performed By: #### L 500.2500, L100.0100 #### [facility] [address] [place], [place], [address] WBC (Bld) [#/Vol] 11.6 10*3/uL High 4.4-11.0 [facility] Comment on above: Performed By: #### L 500.2500, L100.0100 #### [facility] [address] [place], [place], [address] [facility] deOrdered By: Chuy Santiago on 04-15-2025 Glucose [Mass/Vol] 241 mg/dL High 74-106 [facility] Comment on above: MANAGEMENT OF PATIEN T CARE PER NURSING PROTOCOL H AND P Exam - Hospitaliston 04-15-2025 H&P Exam - Hospitalist [facility] Medical Records Department [address] [place] [address] H P Exam - Hospitalist 04/15/25 0944 MR#: [id number] Acct: [id number] Name: ITALO BURGOS Rep #: [id number] : 1970 54 From: Shruti Jara MD PCP: Dr. Zaida Gaston MD Status:ADM IN Location: [place] [address] HPI - General General Date of Admission: [...] right kidney transplant and follows up with [facility]. He said he also had a history of kidney stones and had been scheduled to follow-up at [facility] where he usually goes for the right [...] stated the patient should be transferred to [facility] as he could not do an intervention here in light of him being a kidney transplant patient. Patient was accepted at [facility]. However after staying overnight in the ED and now getting a bed at [facility], decision was made to admit patient to us to [facility] pending transfer. Patient is understanding of the [...] is currently homeless and lives in a fpc. [facility] Medical History MRSA (methicillin resistant staph [...] (LHC) ( 06/26/11) Atherosclerotic heart disease of [place] coronary artery without angina pectoris Essential [...] DAILY ster (more content not included)... Normal [facility] Lactic Acidon 04-15-2025 Lactate [Moles/Vol] 1.4 mmol/L Normal 0.0-2.0 [facility] Comment on above: Order Comment: Comme nts: if result >2, system reflex orders 2nd test @ 4hrsY Performed By: #### L 501.080 #### [facility] [address] [place], [address] 12 Lead EKGon 04-14-2025 12 Lead EKG [facility] Cardiovascular Services [address] [place] [address] 12 Lead EKG 04/14/25 1731 MR#: [id number] Acct: [id number] Name: ITALO BURGOS Rep #: [id number] : 1970 54 From: Anila Flores MD Attending Dr: Dr. Shruti Jara MD Status: DI S IN Ordering Dr: Chuy Santiago MD Date: 04/14/25 Location: [facility] Sex: M C Admitted: 04/15/25 Test Reason [...] Abnormal ECG Confirmed by ANILA FLORES ([id number]), senior editor GRAEME ACEVEDO ([id number]) on 04/19/2025 8:08:10 AM Referred By: Confirmed By: ANILA FLORES 04/19/25 0808 Date Anila Flores MD CC: Dr. Zaida Gaston MD; Dr. Shruti Jara MD; Dr. Chuy Santiago MD Signed Normal [facility] Abdomen/Pelvis without Conto n 04-14-2025 Abdomen/Pelvis without Cont [facility] Imaging Services [address] [place] [id number] Abdomen/Pelvis without Cont MR#: [id number] Acct: [id number] Name: ITALO BURGOS Rep #: [id number] : 1970 M 54 From: Rodrigo Linn MD PCP: Dr. Zaida Gaston MD Status: REG ER Study: Abdomen/Pelvis without Cont Date of Exam: 03/03 Exam# [id number] Ordering Dr: Chuy Santiago MD PROCEDURE: ABDOMEN/PELVIS [...] cholecystectomy. Unremarkable liver, pancreas, spleen, adrenal glands. [place] kidneys are mildly atrophic. There is a [...] infection is possible. Possible cystitis. Reading Location: [place] [address] CC: Dr. Zaida Gaston MD; Dr. Chuy Santiago MD Regional Administrative Assistant: Signed Normal [facility] Absolute lymphocyte countOrd ered By: Chuy Santiago on 04-14-2025 Lymphocytes Auto (Unsp spec) [#/Vol] 1.53 10*3/uL 0.83-4.51 [facility] Absolute neutrophil countOrd ered By: Chuycholo Santiago on 04-14-2025 Neutrophils (Bld) [#/Vol] 9.5 10*3/uL High 2.0-7.7 [facility] Activated partial thrombopla stin time (aPTT) in platelet poor plasma by coagulation aOrdered By: Chuy Santiago on 04-14-2025 aPTT Coag (PPP) [Time] 35.4 s 24.1-36.[address] [facility] Anion gap in Serum or Plasma Ordered By: Chuy Santiago on 04-14-2025 Anion gap [Moles/Vol] 16 mmol/L High 5-15 [facility] Automated lymphocyte count a s percentage of total leukocytesOrdered By: Chuy Santiago on 04-14-2025 Lymphocytes/100 WBC Auto (Unsp spec) 12.2 % Low 19-41 [facility] BUN/creatinine ratioOrdered By: Chuy Santiago on 04-14-2025 Urea nitrogen/Creatinine [Mass ratio] 15.9 mg/mg 10-20 [facility] Basophil percentageOrdered B y: Chuy Santiago on 04-14-2025 Basophils/100 WBC (Bld) 0.3 % 0-1 [facility] Bedside Glucoseon 04-14-2025 FINGERSTICK GLU 224 mg/dL High 74-106 [facility] Comment on above: Result Comment: RACHEL ALLEN OF PATIENT CARE PER NURSING PROTOCOL Performed By: #### L 500.2500 #### [facility] [address] [place], [address] Bilirubin Test strip Ql (U)O rdered By: Chuy Santiago on 04-14-2025 Bilirubin Ql (U) Negative Negative [facility] Bilirubin, totalOrdered By: Chuy Santiago on 04-14-2025 Bilirubin [Mass/Vol] 0.82 mg/dL 0.00-1.30 [facility] Blood cultureOrdered By: Chuy Santiago on 04-14-2025 Bacteria identified Cx Nom (Bld) Meth. resistant Staph. aureus Abnormal [facility] Bacteria identified Cx Nom (Bld) Negative Abnormal [facility] CBC W/Diff, Automatedon Absolute Lymph 1.53 X10 3/uL Normal 0.83-4.51 [facility] Comment on above: Performed By: #### L 501.080 #### [facility] [address] [place], [address] Absolute Neut 9.5 X10 3/uL High 2.0-7.7 [facility] Comment on above: Performed By: #### L 501.080 #### [facility] [address] [place], [address] Basophils/100 WBC (Bld) 0.3 % Normal 0-1 [facility] Comment on above: Performed By: #### L 501.080 #### [facility] [address] [place], [address] Eosinophils/100 WBC (Bld) 0.0 % Normal 0-5 [facility] Comment on above: Performed By: #### L 501.080 #### [facility] [address] [place], [address] Erythrocyte distribution width (RBC) [Ratio] 12.3 % Normal 11.6-14.6 [facility] Comment on above: Performed By: #### L 501.080 #### [facility] [address] [place], [address] Hematocrit (Bld) [Volume fraction] 39.7 % Low 40-54 [facility] Comment on above: Performed By: #### L 501.080 #### [facility] [address] [place], [address] Hemoglobin (Bld) [Mass/Vol] 13.3 g/dL Normal 13.0-16.5 [facility] Comment on above: Performed By: #### L 501.080 #### [facility] [address] [place], [address] IG% 0.500 Normal 0.0-0.9 [facility] Comment on above: Result Comment: IG% - Immature Granulocytes (promyelocytes, myelocytes and metamyelocytes) > 1% indicates that a LEFT SHIFT is Present. Performed By: #### L 501.080 #### [facility] [address] [place], [address] Lymphocytes/100 WBC (Bld) 12.2 % Low 19-41 [facility] Comment on above: Performed By: #### L 501.080 #### [facility] [address] [place], [address] MCH (RBC) [Entitic mass] 29.2 pg Normal 27.0-32.0 [facility] Comment on above: Performed By: #### L 501.080 #### [facility] [address] [place], [address] MCHC (RBC) [Mass/Vol] 33.5 g/dL Normal 32-36 [facility] Comment on above: Performed By: #### L 501.080 #### [facility] [address] [place], [address] MCV (RBC) [Entitic vol] 87.1 fL Normal 80-94 [facility] Comment on above: Performed By: #### L 501.080 #### [facility] [address] [place], [address] Monocytes/100 WBC (Bld) 11.3 % High 0-10 [facility] Comment on above: Performed By: #### L 501.080 #### [facility] [address] [place], [address] Neutrophils/100 WBC (Bld) 75.7 % High 47-70 [facility] Comment on above: Performed By: #### L 501.080 #### [facility] [address] [place], [address] Nucleated RBC (Bld) [#/Vol] 0 10*3/uL Normal 0-5 [facility] Comment on above: Performed By: #### L 501.080 #### [facility] [address] [place], [address] Platelet mean volume (Bld) [Entitic vol] 9.4 fL Normal 6.2-12.0 [facility] Comment on above: Performed By: #### L 501.080 #### [facility] [address] [place], [address] Platelets (Bld) [#/Vol] 276 10*3/uL Normal 150-450 [facility] Comment on above: Performed By: #### L 501.080 #### [facility] [address] [place], [address] RBC (Bld) [#/Vol] 4.56 10*6/uL Low 4.6-6.2 [facility] Comment on above: Performed By: #### L 501.080 #### [facility] [address] [place], [address] RDW SD 39.6 fl Normal 35.1-43.9 [facility] Comment on above: Performed By: #### L 501.080 #### [facility] [address] [place], [address] WBC (Bld) [#/Vol] 12.6 10*3/uL High 4.4-11.0 [facility] Comment on above: Performed By: #### L 501.080 #### [facility] [address] [place], [address] Carbon dioxide, total [Moles /volume] in Central venous bloodOrdered By: Chuy Santiago on 04-14-2025 CO2 [Moles/Vol] 22.5 mmol/L 21.0-32.0 [facility] Chest 1 View (Portable)on Chest 1 View (Portable) [facility] Imaging Services [address] [place] [address] Chest 1 View (Portable) MR#: [id number] Acct: [id number] Name: BURGOSITALO Mery Rep #: [id number] : 1970 M 54 From: Gen Jack MD PCP: Dr. Zaida Gaston MD Status: [facility] ER Study: Chest 1 View (Portable) Date of Exam: 04/14/25 Exam# [id number] Ordering Dr: Chuy Santiago MD PROCEDURE: CHEST 1 VIEW (PORTABLE) 04/14/2025 REASON FOR EXAM: NONPRODUCTIVE COUGH, FEVER, RALES RIGHT BASE TECHNIQUE: Frontal view of the chest. COMPARISON: 01/2025. FINDINGS: The heart is normal in size. The lungs are clear. No consolidation. No acute osseous abnormalities. RAD/Chest 1 View (Portable) IMPRESSION: No Acute Findings. Reading Location: [id number] CC: Dr. Zaida Gaston MD; Dr. Chuy Santiago MD Regional Administrative Assistant: Signed Normal [facility] Chloride assayOrdered By: Daylin Santiago on 04-14-2025 Chloride [Moles/Vol] 92 mmol/L Low 98-108 [facility] Comprehensive Metabolic Prof ilon 04-14-2025 Albumin [Mass/Vol] 3.9 g/dL Normal 3.5-5.0 [facility] Comment on above: Performed By: #### L 501.080 #### [facility] [address] [place], [address] Albumin/Globulin [Mass ratio] 0.8 {ratio} Low 0.9-2.4 [facility] Comment on above: Performed By: #### L 501.080 #### [facility] [address] [place], [address] ALK PHOS 141 U/L High 40-129 [facility] Comment on above: Performed By: #### L 501.080 #### [facility] [address] [place], [address] ALT [Catalytic activity/Vol] 12 U/L Normal <=46 [facility] Comment on above: Performed By: #### L 501.080 #### [facility] [address] [place], [address] AST [Catalytic activity/Vol] 18 U/L Normal <=37 [facility] Comment on above: Performed By: #### L 501.080 #### [facility] [address] [place], [address] Bilirubin [Mass/Vol] 0.82 mg/dL Normal 0.00-1.30 [facility] Comment on above: Performed By: #### L 501.080 #### [facility] [address] [place], [address] BUN/CRE 15.9 RATIO Normal 10-20 [facility] Comment on above: Performed By: #### L 501.080 #### [facility] [address] [place], [address] Calcium [Mass/Vol] 10.1 mg/dL Normal 7.6-11.0 [facility] Comment on above: Performed By: #### L 501.080 #### [facility] [address] [place], [address] Chloride [Moles/Vol] 92 mmol/L Low 98-108 [facility] Comment on above: Performed By: #### L 501.080 #### [facility] [address] [place], [address] CO2 [Moles/Vol] 22.5 mmol/L Normal 21.0-32.0 [facility] Comment on above: Performed By: #### L 501.080 #### [facility] [address] [place], [address] Creatinine [Mass/Vol] 1.62 mg/dL High 0.70-1.20 [facility] Comment on above: Performed By: #### L 501.080 #### [facility] [address] [place], [address] ECRCL 49.26 ml/min Low 50-250 [facility] Comment on above: Performed By: #### L 501.080 #### [facility] [address] [place], [address] GAP 16 High 5-15 [facility] Comment on above: Performed By: #### L 501.080 #### [facility] [address] [place], [address] GFR/1.73 sq M.predicted among non-blacks MDRD (S/P/Bld) [Vol rate/Area] 50 mL/min/{1.73_m2} Low >60 [facility] Comment on above: Result Comment: mL/m in/1.73m2 CKD-EPI Creatinine Equation (2020) Performed By: #### L 501.080 #### [facility] [address] [place], [address] Globulin (S) [Mass/Vol] 4.7 g/dL High 2.2-4.2 [facility] Comment on above: Performed By: #### L 501.080 #### [facility] [address] [place], [address] Glucose [Mass/Vol] 429 mg/dL High 70-99 [facility] Comment on above: Performed By: #### L 501.080 #### [facility] [address] [place], [address] Potassium [Moles/Vol] 4.3 mmol/L Normal 3.3-5.1 [facility] Comment on above: Performed By: #### L 501.080 #### [facility] [address] [place], [address] Sodium [Moles/Vol] 130 mmol/L Low 133-145 [facility] Comment on above: Performed By: #### L 501.080 #### [facility] [address] [place], [address] T PROT 8.5 g/dL High 5.9-8.4 [facility] Comment on above: Performed By: #### L 501.080 #### [facility] [address] [place], [address] Urea nitrogen [Mass/Vol] 26 mg/dL High 4-19 [facility] Comment on above: Performed By: #### L 501.080 #### [facility] [address] [place], [address] Emergency Department Summary on 04-14-2025 Emergency Department Summary [facility] Medical Records Department [address] [place] [address] Emergency Department Summary 04/14/25 MR#: [id number] Acct: [id number] Name: ITALO BURGOS Rep #: [id number] : 1970 54 From: Chuy Santiago MD PCP: Dr. Zaida Gaston MD Status:DIS IN Location: [place] [address]-1 HPI History of Present Illness Chief Complaint: [...] he is presently staying at the homeless fpc. Prior similar symptoms: Yes Recent Illness/Hospitalization : [...] (LHC) ( 06/26/11) Atherosclerotic heart disease of [place] coronary artery without angina pectoris Essential [...] Kidney di (more content not included)... Normal [facility] Eosinophil percentageOrdered By: Chuy Santiago on 04-14-2025 Eosinophils/100 WBC (Bld) 0.0 % 0-5 [facility] Erythrocyte distribution wid th ratioOrdered By: Chuycholo Santiago on 04-14-2025 Erythrocyte distribution width (RBC) [Ratio] 12.3 % 11.6-14.6 [facility] Erythrocyte distribution wid th standard deviationOrdered By: Chuycholo Santiago on 04-14-2025 Erythrocyte distribution width (RBC) [Ratio] 39.6 fl 35.1-43.9 [facility] Glomerular filtration rate ( GFR) estimation/1.73 sq m using serum, plasma, or whole bOrdered By: Chuy Santiago on 04-14-2025 GFR/1.73 sq M.predicted among non-blacks MDRD (S/P/Bld) [Vol rate/Area] 50 mL/min/{1.73_m2} Low >60 [facility] Comment on above: mL/min/1.73m2 CKD-EP I Creatinine Equation (2020) Hematocrit Auto (Bld) [Volum e fraction]Ordered By: Chuy Santiago on 04-14-2025 Hematocrit (Bld) [Volume fraction] 39.7 % Low 40-54 [facility] Hemoglobin measurementOrdere d By: Chuy Santiago on 04-14-2025 Hemoglobin (Bld) [Mass/Vol] 13.3 g/dL 13.0-16.5 [facility] Immature granulocytes/100 WB C Auto (Bld)Ordered By: Chuy Santiago on 04-14-2025 Immature granulocytes/100 WBC (Bld) 0.500 % 0.0-0.9 [facility] Comment on above: IG% - Immature Granu locytes (promyelocytes, myelocytes and metamyelocytes) > 1% indicates that a LEFT SHIFT is Present. International normalized rat io (INR) calculationOrdered By: Chuy Santiaog on 04-14-2025 INR Coag (Bld) [Relative time] 1.2 {INR} [facility] Ketones Test strip Ql (U)Ord ered By: Chuy Santiago on 04-14-2025 Ketones Ql (U) Negative Negative [facility] - Chemistry and C hemistry - challengeOrdered By: Chuy Santiago on 04-14-2025 AST [Catalytic activity/Vol] 18 U/L <38 [facility] Lactic Acidon 04-14-2025 Lactate [Moles/Vol] 1.6 mmol/L Normal 0.0-2.0 [facility] Comment on above: Order Comment: Y Performed By: #### L 501.080 #### [facility] [address] [place], [address] Lactic acid measurementOrder ed By: Chuy Santiago on 04-14-2025 Lactate [Moles/Vol] 1.6 mmol/L 0.0-2.0 [facility] MCV (mean corpuscular volume ) determinationOrdered By: Chuy Santiago on 04-14-2025 MCV (RBC) [Entitic vol] 87.1 fL 80-94 [facility] Mean corpuscular hemoglobin (MCH) determinationOrdered By: Chuycholo Santiago on 04-14-2025 MCH (RBC) [Entitic mass] 29.2 pg 27.0-32.0 [facility] Mean corpuscular hemoglobin concentration (MCHC) determinationOrdered By: Chuycholo Santiago on 04-14-2025 MCHC (RBC) [Mass/Vol] 33.5 g/dL 32-36 [facility] Mean platelet volume determi nationOrdered By: Chuy Santiago on 04-14-2025 Platelet mean volume (Bld) [Entitic vol] 9.4 fL 6.2-12.0 [facility] Microscopic analysis of urin e for red blood cells (RBC)Ordered By: Chuy Santiago on 04-14-2025 Microscopic analysis of urine for red blood cells (RBC) 5-10 SEEN /hpf 0-5 [facility] Monocyte percentageOrdered B y: Chuy Santiago on 04-14-2025 Monocytes/100 WBC (Bld) 11.3 % High 0-10 [facility] Mucus LM Ql (Urine sed)Order ed By: Chuy Santiago on 04-14-2025 Mucus Ql (Urine sed) 0 SEEN /hpf [facility] Neutrophil percentageOrdered By: Chuycholo Santiago on 04-14-2025 Neutrophils/100 WBC (Bld) 75.7 % High 47-70 [facility] Nitrite Test strip Ql (U)Ord ered By: Chuycholo Santiago on 04-14-2025 Nitrite Ql (U) Positive High Negative [facility] No Panel InformationOrdered By: Chuycholo Santiago on 04-14-2025 18 U/L <38 [facility] Nucleated red blood cell per centageOrdered By: [facility] on 04-14-2025 Nucleated RBC/100 WBC (Bld) [Ratio] 0 % 0-5 [facility] Organism identificationOrder ed By: Chuy Santiago on 04-14-2025 Microorganism identified Cx Nom (Unsp spec) Staphylococcus epidermidis Abnormal [facility] Partial Thromboplast Timeon 04-14-2025 aPTT Coag (Bld) [Time] 35.4 s Normal 24.1-36.[address] [facility] Comment on above: Performed By: #### L 501.080 #### [facility] [address] [place], [place], [id number] Platelet countOrdered By: Daylin Santiago on 04-14-2025 Platelets (Bld) [#/Vol] 276 10*3/uL 150-450 [facility] Potassium measurement (mass/ volume)Ordered By: Chuycholo Santiago on 04-14-2025 Potassium (Unsp spec) [Mass/Vol] 4.3 mmol/L 3.3-5.1 [facility] Protein Test strip Ql (U)Ord ered By: Chuycholo Santiago on 04-14-2025 Protein Ql (U) 100 mg/dl High Negative [facility] Prothrombin Time w/INRon INR Coag (PPP) [Relative time] 1.2 {INR} Normal [facility] Comment on above: Performed By: #### L 501.080 #### [facility] [address] [place], [place], [id number] PT Coag (PPP) [Time] 15.1 s High 11.7-14.9 [facility] Comment on above: Performed By: #### L 501.080 #### [facility] [address] [place], [place], [id number] Prothrombin timeOrdered By: Chuycholo Santiago on 04-14-2025 PT Coag (PPP) [Time] 15.1 s High 11.7-14.9 [facility] RBC Auto (Bld) [#/Vol]Ordere d By: Chuy Santiago on 04-14-2025 RBC (Bld) [#/Vol] 4.56 10*6/uL Low 4.6-6.2 [facility] Serum creatinine measurement (mass/volume)Ordered By: Chuycholo Santiago on 04-14-2025 Creatinine [Mass/Vol] 1.62 mg/dL High 0.70-1.20 [facility] Serum globulin measurementOr dered By: Chuy Santiago on 04-14-2025 Globulin (S) [Mass/Vol] 4.7 g/dL High 2.2-4.2 [facility] Serum glucose measurement (m ass/volume)Ordered By: Chuy Santiago on 04-14-2025 Glucose [Mass/Vol] 429 mg/dL High 70-99 [facility] Serum or plasma alanine andrade otransferase (ALT) measurementOrdered By: Chuycholo Santiago on 04-14-2025 ALT [Catalytic activity/Vol] 12 U/L <47 [facility] Serum or plasma albumin regi urement (mass/volume)Ordered By: Chuycholo Santiago on 04-14-2025 Albumin [Mass/Vol] 3.9 g/dL 3.5-5.0 [facility] Serum or plasma albumin/glob ulin mass ratioOrdered By: Chuycholo Santiago on 04-14-2025 Albumin/Globulin [Mass ratio] 0.8 {ratio} Low 0.9-2.4 [facility] Serum or plasma alkaline cindi sphatase measurementOrdered By: Chuycholo Santiago on 04-14-2025 ALP [Catalytic activity/Vol] 141 U/L High 40-129 [facility] Serum or plasma calcium regi urement (mass/volume)Ordered By: Chuy Santiago on 04-14-2025 Calcium [Mass/Vol] 10.1 mg/dL 7.6-11.0 [facility] Serum or plasma urea nitroge n measurement (mass/volume)Ordered By: Chuy Santiago on 04-14-2025 Urea nitrogen [Mass/Vol] 26 mg/dL High 4-19 [facility] Sodium levelOrdered By: Chuy Santiago on 04-14-2025 Sodium [Moles/Vol] 130 mmol/L Low 133-145 [facility] Squamous epithelial cells de tection in urine sediment by light microscopyOrdered By: Chuy Santiago on 04-14-2025 Epithelial cells.squamous LM Ql (Urine sed) 0 SEEN /hpf 0-5 [facility] Total proteinOrdered By: Chuy Santiago on 04-14-2025 Protein [Mass/Vol] 8.5 g/dL High 5.9-8.4 [facility] Urinalysis, Completeon 04-14 RBC 5-10 SEEN Normal 0-5 [facility] Comment on above: Order Comment: TOPHER CTOR TO SPECIFY Performed By: #### L 501.080 #### [facility] [address] [place], [address] CAST,COARSE GR 0-5 SEEN Normal 0-5 /lpf [facility] Comment on above: Order Comment: COLLE CTOR TO SPECIFY Performed By: #### L 501.080 #### [facility] [address] [place], [address] BACTERIA 1+ /hpf Normal None Seen [facility] Comment on above: Order Comment: COLLE CTOR TO SPECIFY Performed By: #### L 501.080 #### [facility] [address], [address] WBC >100 SEEN Normal 0-5 [facility] Comment on above: Order Comment: COLLE CTOR TO SPECIFY Performed By: #### L 501.080 #### [facility] [address] [place], [address] EPI,SQUAMOUS 0 SEEN Normal 0-5 [facility] Comment on above: Order Comment: TOPHER CTOR TO SPECIFY Performed By: #### L 501.080 #### [facility] [address] [place], [address] Mucus Ql (Urine sed) 0 SEEN Normal [facility] Comment on above: Order Comment: TOPHER CTOR TO SPECIFY Performed By: #### L 501.080 #### [facility] [address] [place], [address] Urine clarityOrdered By: Chuy Santiago on 04-14-2025 Clarity (U) Cloudy Clear [facility] Urine coarse granular cast d etectionOrdered By: Chuy Santiago on 04-14-2025 Coarse Granular Casts LM Ql (Urine sed) 0-5 SEEN /lpf 0-5 /lpf [facility] Urine color determinationOrd ered By: Chuy Santiago on 04-14-2025 Color (U) Yellow Yellow [facility] Urine glucose detectionOrder ed By: Chuy Santiago on 04-14-2025 Glucose Ql (U) 1000 mg/dl High Normal [facility] Urine leukocyte esterase det ection by dipstickOrdered By: Chuy Santiago on 04-14-2025 Leukocyte esterase Test strip Ql (U) 500 /ul High Negative [facility] Urine pHOrdered By: Chuy ramirez on 04-14-2025 pH (U) 6.0 [pH] 5.0 - 8.0 [facility] Urine sediment bacteria coun t by microscopy (number/high power field)Ordered By: Chuy Santiago on 04-14-2025 Bacteria LM.HPF (Urine sed) [#/Area] 1 /[HPF] None Seen [facility] Urine specific gravity measu rementOrdered By: Chuy Santiago on 04-14-2025 Specific gravity (U) [Rel density] 1.015 1.002-1.030 [facility] Urine urobilinogen measureme ntOrdered By: Chuy Santiago on 04-14-2025 Urobilinogen Ql (U) 1 mg/dl High Normal [facility] White blood cell (WBC) count Ordered By: Chuycholo Santiago on 04-14-2025 WBC (Bld) [#/Vol] 12.6 10*3/uL High 4.4-11.0 [facility] White blood cell countOrdere d By: Chuycholo Santiago on 04-14-2025 White blood cell count >100 SEEN /hpf 0-5 [facility] Urine Cultureon 04-06-2025 [facility] Copy of report sent to Infection Control Printer [id number] 04/06/25 0745 ASNIPES. Meth. resistant Staph. aureus [place] Count >100,000 mecA Testing not performed Meth. [...] S Vancomycin Islt PARTH 1 S Normal [facility] Comment on above: Performed By: #### L 500.2500 #### [facility] [address] [place], [address] Absolute lymphocyte countOrd ered By: Chuycholo Santiago on 04-04-2025 Lymphocytes Auto (Unsp spec) [#/Vol] 1.17 10*3/uL 0.83-4.51 [facility] Absolute neutrophil countOrd ered By: [facility] on 04-04-2025 Neutrophils (Bld) [#/Vol] 6.2 10*3/uL 2.0-7.7 [facility] Anion gap in Serum or Plasma Ordered By: Chuy Santiago on 04-04-2025 Anion gap [Moles/Vol] 12 mmol/L 5-15 [facility] Automated lymphocyte count a s percentage of total leukocytesOrdered By: Chuycholo Santiago on 04-04-2025 Lymphocytes/100 WBC Auto (Unsp spec) 14.4 % Low 19-41 [facility] BUN/creatinine ratioOrdered By: Chuy Santiago on 04-04-2025 Urea nitrogen/Creatinine [Mass ratio] 16.7 mg/mg - [facility] Basic Metabolic Profile (BMP )on 04-04-2025 BUN/CRE 16.7 RATIO Normal - [facility] Comment on above: Performed By: #### L 500.2500 #### [facility] [address] [place], [address] Calcium [Mass/Vol] 9.8 mg/dL Normal 7.6-11.0 [facility] Comment on above: Performed By: #### L 500.2500 #### [facility] [address] [place], [address] Chloride [Moles/Vol] 94 mmol/L Low 98-108 [facility] Comment on above: Performed By: #### L 500.2500 #### [facility] [address] [place], [address] CO2 [Moles/Vol] 22.2 mmol/L Normal 21.0-32.0 [facility] Comment on above: Performed By: #### L 500.2500 #### [facility] [address] [place], [address] Creatinine [Mass/Vol] 1.26 mg/dL High 0.70-1.20 [facility] Comment on above: Performed By: #### L 500.2500 #### [facility] [address] [place], [address] ECRCL 63.33 ml/min Normal 50-250 [facility] Comment on above: Performed By: #### L 500.2500 #### [facility] [address] [place], [address] GAP 12 Normal 5-15 [facility] Comment on above: Performed By: #### L 500.2500 #### [facility] [address] [place], [address] GFR/1.73 sq M.predicted among non-blacks MDRD (S/P/Bld) [Vol rate/Area] 67 mL/min/{1.73_m2} Normal >60 [facility] Comment on above: Result Comment: mL/m in/1.73m2 CKD-EPI Creatinine Equation (2020) Performed By: #### L 500.2500 #### [facility] [address] [place], [address] Glucose [Mass/Vol] 581 mg/dL Invalid Interpretation Code 70-99 [facility] Comment on above: Result Comment: Crit ical Result(s) Called at: 04/04/2025-12:13 by: Ignacio Smith to Ashlee Gillespie.??Results read back by same. Performed By: #### L 500.2500 #### [facility] [address] [place], [address] Potassium [Moles/Vol] 5.1 mmol/L Normal 3.3-5.1 [facility] Comment on above: Performed By: #### L 500.2500 #### [facility] [address] [place], [address] Sodium [Moles/Vol] 128 mmol/L Low 133-145 [facility] Comment on above: Performed By: #### L 500.2500 #### [facility] [address] [place], [address] Urea nitrogen [Mass/Vol] 21 mg/dL High 4-19 [facility] Comment on above: Performed By: #### L 500.2500 #### [facility] [address] [place], [address] Basophil percentageOrdered B y: Chuy Santiago on 04-04-2025 Basophils/100 WBC (Bld) 0.4 % 0-1 [facility] Bedside Glucoseon 04-04-2025 FINGERSTICK GLU 294 mg/dL High 74-106 [facility] Comment on above: Result Comment: RACHEL GEMENT OF PATIENT CARE PER NURSING PROTOCOL Performed By: #### L 501.080 #### [facility] [address], [address] FINGERSTICK GLU 440 mg/dL High 74-106 [facility] Comment on above: Result Comment: RACHEL GEMENT OF PATIENT CARE PER NURSING PROTOCOL Performed By: #### L 501.080 #### [facility] [address] [place], [address] Bilirubin Test strip Ql (U)O rdered By: Chuy Santiago on 04-04-2025 Bilirubin Ql (U) Negative Negative [facility] CBC W/Diff, Automatedon 03-10 Absolute Lymph 1.17 X10 3/uL Normal 0.83-4.51 [facility] Comment on above: Performed By: #### L 500.2500 #### [facility] [address] [place], [address] Absolute Neut 6.2 X10 3/uL Normal 2.0-7.7 [facility] Comment on above: Performed By: #### L 500.2500 #### [facility] [address], [address] Basophils/100 WBC (Bld) 0.4 % Normal 0-1 [facility] Comment on above: Performed By: #### L 500.2500 #### [facility] [address] [place], [address] Eosinophils/100 WBC (Bld) 0.7 % Normal 0-5 [facility] Comment on above: Performed By: #### L 500.2500 #### [facility] [address] [place], [address] Erythrocyte distribution width (RBC) [Ratio] 12.4 % Normal 11.6-14.6 [facility] Comment on above: Performed By: #### L 500.2500 #### [facility] [address] [place], [address] Hematocrit (Bld) [Volume fraction] 36.8 % Low 40-54 [facility] Comment on above: Performed By: #### L 500.2500 #### [facility] [address] [place], [address] Hemoglobin (Bld) [Mass/Vol] 12.3 g/dL Low 13.0-16.5 [facility] Comment on above: Performed By: #### L 500.2500 #### [facility] [address] [place], [address] IG% 0.200 Normal 0.0-0.9 [facility] Comment on above: Result Comment: IG% - Immature Granulocytes (promyelocytes, myelocytes and metamyelocytes) > 1% indicates that a LEFT SHIFT is Present. Performed By: #### L 500.2500 #### [facility] [place], [address] Lymphocytes/100 WBC (Bld) 14.4 % Low 19-41 [facility] Comment on above: Performed By: #### L 500.2500 #### [facility] [address] [place], [address] MCH (RBC) [Entitic mass] 29.8 pg Normal 27.0-32.0 [facility] Comment on above: Performed By: #### L 500.2500 #### [facility] [address] [place], [address] MCHC (RBC) [Mass/Vol] 33.4 g/dL Normal 32-36 [facility] Comment on above: Performed By: #### L 500.2500 #### [facility] [address] [place], [address] MCV (RBC) [Entitic vol] 89.1 fL Normal 80-94 [facility] Comment on above: Performed By: #### L 500.2500 #### [facility] [address] [place], [address] Monocytes/100 WBC (Bld) 8.7 % Normal 0-10 [facility] Comment on above: Performed By: #### L 500.2500 #### [facility] [address] [place], [address] Neutrophils/100 WBC (Bld) 75.6 % High 47-70 [facility] Comment on above: Performed By: #### L 500.2500 #### [facility] [address] [place], [address] Nucleated RBC (Bld) [#/Vol] 0 10*3/uL Normal 0-5 [facility] Comment on above: Performed By: #### L 500.2500 #### [facility] [address] [place], [address] Platelet mean volume (Bld) [Entitic vol] 9.3 fL Normal 6.2-12.0 [facility] Comment on above: Performed By: #### L 500.2500 #### [facility] [address] [place], [address] Platelets (Bld) [#/Vol] 341 10*3/uL Normal 150-450 [facility] Comment on above: Performed By: #### L 500.2500 #### [facility] [address] [place], [address] RBC (Bld) [#/Vol] 4.13 10*6/uL Low 4.6-6.2 [facility] Comment on above: Performed By: #### L 500.2500 #### [facility] [address] [place], [address] RDW SD 40.5 fl Normal 35.1-43.9 [facility] Comment on above: Performed By: #### L 500.2500 #### [facility] [address] [place], [address] WBC (Bld) [#/Vol] 8.2 10*3/uL Normal 4.4-11.0 [facility] Comment on above: Performed By: #### L 500.2500 #### [facility] [address] [place], [address] Carbon dioxide, total [Moles /volume] in Central venous bloodOrdered By: Chuy Santiago on 04-04-2025 CO2 [Moles/Vol] 22.2 mmol/L 21.0-32.0 [facility] Chloride assayOrdered By: Daylin Santiago on 04-04-2025 Chloride [Moles/Vol] 94 mmol/L Low 98-108 [facility] Emergency Department Summary on 04-04-2025 Emergency Department Summary [facility] Medical Records Department [address] [place] [address] Emergency Department Summary 04/04/25 MR#: [id number] Acct: [id number] Name: ITALO BURGOS Rep #: [id number] : 1970 54 From: Chuy Santiago MD [...] is a 54-year-old male. He presents from [facility]. He arrived by ambulance. He denies headache. [...] symptoms: No Recent Illness/Hospitalization : No [facility] Medical History Anxiety Depression Diabetes Former [...] ([facility]) ( 06/26/11) Atherosclerotic heart disease of [place] coronary artery without angina pectoris Essential [...] Depression H/O (more content not included)... Normal [facility] Eosinophil percentageOrdered By: Chuy Santiago on 04-04-2025 Eosinophils/100 WBC (Bld) 0.7 % 0-5 [facility] Erythrocyte distribution wid th ratioOrdered By: Chuy Santiago on 04-04-2025 Erythrocyte distribution width (RBC) [Ratio] 12.4 % 11.6-14.6 [facility] Erythrocyte distribution wid th standard deviationOrdered By: Chuy Santiago on 04-04-2025 Erythrocyte distribution width (RBC) [Ratio] 40.5 fl 35.1-43.9 [facility] Glomerular filtration rate ( GFR) estimation/1.73 sq m using serum, plasma, or whole bOrdered By: Chuy Santiago on 04-04-2025 GFR/1.73 sq M.predicted among non-blacks MDRD (S/P/Bld) [Vol rate/Area] 67 mL/min/{1.73_m2} >60 [facility] Comment on above: mL/min/1.73m2 CKD-EP I Creatinine Equation (2020) Glucose measurement at bedsi deOrdered By: Chuy Santiago on 04-04-2025 Glucose [Mass/Vol] 294 mg/dL High 74-106 [facility] Comment on above: MANAGEMENT OF PATIEN T CARE PER NURSING PROTOCOL Hematocrit Auto (Bld) [Volum e fraction]Ordered By: Chuy Santiago on 04-04-2025 Hematocrit (Bld) [Volume fraction] 36.8 % Low 40-54 [facility] Hemoglobin measurementOrdere d By: Chuy Santiago on 04-04-2025 Hemoglobin (Bld) [Mass/Vol] 12.3 g/dL Low 13.0-16.5 [facility] Immature granulocytes/100 WB C Auto (Bld)Ordered By: Chuy Santiago on 04-04-2025 Immature granulocytes/100 WBC (Bld) 0.200 % 0.0-0.9 [facility] Comment on above: IG% - Immature Granu locytes (promyelocytes, myelocytes and metamyelocytes) > 1% indicates that a LEFT SHIFT is Present. Ketones Test strip Ql (U)Ord ered By: Chuy Santiago on 04-04-2025 Ketones Ql (U) Negative Negative [facility] MCV (mean corpuscular volume ) determinationOrdered By: Chuy Santiago 04-04-2025 MCV (RBC) [Entitic vol] 89.1 fL 80-94 [facility] Mean corpuscular hemoglobin (MCH) determinationOrdered By: Chuy Santiago 04-04-2025 MCH (RBC) [Entitic mass] 29.8 pg 27.0-32.0 [facility] Mean corpuscular hemoglobin concentration (MCHC) determinationOrdered By: Chuy Santiago 04-04-2025 MCHC (RBC) [Mass/Vol] 33.4 g/dL 32-36 [facility] Mean platelet volume determi nationOrdered By: Chuy Santiago 04-04-2025 Platelet mean volume (Bld) [Entitic vol] 9.3 fL 6.2-12.0 [facility] Microscopic analysis of urin e for red blood cells (RBC)Ordered By: Chuy Santiago 04-04-2025 Microscopic analysis of urine for red blood cells (RBC) 5-10 SEEN /hpf 0-5 [facility] Monocyte percentageOrdered B y: Chuycholo Thompsono on 04-04-2025 Monocytes/100 WBC (Bld) 8.7 % 0-10 [facility] Mucus LM Ql (Urine sed)Order ed By: Chuy Santiago on 04-04-2025 Mucus Ql (Urine sed) 0 SEEN /hpf [facility] Neutrophil percentageOrdered By: Chuy Santiago on 04-04-2025 Neutrophils/100 WBC (Bld) 75.6 % High 47-70 [facility] Nitrite Test strip Ql (U)Ord ered By: Chuy Santiago on 04-04-2025 Nitrite Ql (U) Positive High Negative [facility] Nucleated red blood cell per centageOrdered By: Chuy Santiago on 04-04-2025 Nucleated RBC/100 WBC (Bld) [Ratio] 0 % 0-5 [facility] Platelet countOrdered By: Daylin Santiago on 04-04-2025 Platelets (Bld) [#/Vol] 341 10*3/uL 150-450 [facility] Potassium measurement (mass/ volume)Ordered By: Chuycholo Santiago on 04-04-2025 Potassium (Unsp spec) [Mass/Vol] 5.1 mmol/L 3.3-5.1 [facility] Protein Test strip Ql (U)Ord ered By: Chuy Santiago on 04-04-2025 Protein Ql (U) 30 mg/dl High Negative [facility] RBC Auto (Bld) [#/Vol]Ordere d By: Chuy Santiago on 04-04-2025 RBC (Bld) [#/Vol] 4.13 10*6/uL Low 4.6-6.2 [facility] Serum creatinine measurement (mass/volume)Ordered By: Chuy Santiago on 04-04-2025 Creatinine [Mass/Vol] 1.26 mg/dL High 0.70-1.20 [facility] Serum glucose measurement (m ass/volume)Ordered By: Chuy Santiago on 04-04-2025 Glucose [Mass/Vol] 581 mg/dL High 70-99 [facility] Comment on above: Critical Result(s) C alled at: 04/04/2025-12:13 by: Ignacio Smith to Ashlee Gillespie. Results read back by same. Serum or plasma calcium regi urement (mass/volume)Ordered By: Chuy Santiago on 04-04-2025 Calcium [Mass/Vol] 9.8 mg/dL 7.6-11.0 [facility] Serum or plasma urea nitroge n measurement (mass/volume)Ordered By: Chuy Santiago on 04-04-2025 Urea nitrogen [Mass/Vol] 21 mg/dL High 4-19 [facility] Sodium levelOrdered By: Chuycholo Santiago on 04-04-2025 Sodium [Moles/Vol] 128 mmol/L Low 133-145 [facility] Squamous epithelial cells de tection in urine sediment by light microscopyOrdered By: Chuycholo Santiago on 04-04-2025 Epithelial cells.squamous LM Ql (Urine sed) 0 SEEN /hpf 0-5 [facility] Urinalysis, Completeon 04-04 RBC 5-10 SEEN Normal 0-5 [facility] Comment on above: Order Comment: CLEAN CATCH Performed By: #### L 501.080 #### [facility] [address] [place], [address] BACTERIA 1+ /hpf Normal None Seen [facility] Comment on above: Order Comment: CLEAN CATCH Performed By: #### L 501.080 #### [facility] [address] [place], [address] WBC 10-25 SEEN Normal 0-[address] [place] [address] Comment on above: Order Comment: CLEAN CATCH Performed By: #### L 501.080 #### [facility] [address] [place], [address] EPI,SQUAMOUS 0 SEEN Normal 0-5 [facility] Comment on above: Order Comment: CLEAN CATCH Performed By: #### L 501.080 #### [facility] [address] [place], [address] Mucus Ql (Urine sed) 0 SEEN Normal [facility] Comment on above: Order Comment: CLEAN CATCH Performed By: #### L 501.080 #### [facility] [address] [place], [address] Urine clarityOrdered By: Chyu Santiago on 04-04-2025 Clarity (U) Sl. Cloudy Clear [facility] Urine color determinationOrd ered By: Chuy Santiago on 04-04-2025 Color (U) Yellow Yellow [facility] Urine cultureOrdered By: Chuy Santiago on 04-04-2025 Bacteria identified Cx Nom (U) Meth. resistant Staph. aureus Abnormal [facility] Urine glucose detectionOrder ed By: Chuy Santiago on 04-04-2025 Glucose Ql (U) 1000 mg/dl High Normal [facility] Urine leukocyte esterase det ection by dipstickOrdered By: Chuy Santiago on 04-04-2025 Leukocyte esterase Test strip Ql (U) 500 /ul High Negative [facility] Urine pHOrdered By: Chuy ramirez on 04-04-2025 pH (U) 6.5 [pH] 5.0 - 8.0 [facility] Urine sediment bacteria coun t by microscopy (number/high power field)Ordered By: Chuy Santiago on 04-04-2025 Bacteria LM.HPF (Urine sed) [#/Area] 1 /[HPF] None Seen [facility] Urine specific gravity measu rementOrdered By: Chuy Santiago on 04-04-2025 Specific gravity (U) [Rel density] 1.010 1.002-1.030 [facility] Urine urobilinogen measureme ntOrdered By: Chuy Santiago on 04-04-2025 Urobilinogen Ql (U) 1 mg/dl High Normal [facility] White blood cell (WBC) count Ordered By: Chuy Santiago on 04-04-2025 WBC (Bld) [#/Vol] 8.2 10*3/uL 4.4-11.0 [facility] White blood cell countOrdere d By: Chuy Santiago on 04-04-2025 White blood cell count 10-25 SEEN /hpf 0-5 [facility] Abdomen/Pelvis without Conto n 03-10-2025 Abdomen/Pelvis without Cont [facility] Imaging Services [address] [place] [address] Abdomen/Pelvis without Cont MR#: [id number] Acct: [id number] Name: ITALO BURGOS Rep #: [id number] : 1970 M 54 From: John Solis MD PCP: Dr. Zaida Gaston MD Status: REG ER Study: Abdomen/Pelvis without Cont Date of Exam: 11/03 Exam# [id number] Ordering Dr: Byron Saldana DO EXAM: CT [...] the colon consistent with constipation. Reading Location: [facility] CC: Dr. Zaida Gaston MD; Dr. Byron Saldana DO Regional Administrative Assistant: Signed Normal [facility] Anion gap in Serum or Plasma Ordered By: Chuy Santiago on 03-10-2025 Anion gap [Moles/Vol] 11 mmol/L - [facility] BUN/creatinine ratioOrdered By: Chuy Santiago on 03-10-2025 Urea nitrogen/Creatinine [Mass ratio] 18.8 mg/mg - [facility] Basic Metabolic Profile (BMP )on 03-10-2025 BUN/CRE 18.8 RATIO Normal - [facility] Comment on above: Performed By: #### L 400.0001 #### [facility] [address] [facility] [facility] [address] Calcium [Mass/Vol] 9.3 mg/dL Normal 7.6-11.0 [facility] Comment on above: Performed By: #### L 400.0001 #### [facility] [address] [facility]. [facility] [address] Chloride [Moles/Vol] 100 mmol/L Normal 98-108 [facility] Comment on above: Performed By: #### L 400.0001 #### [facility] [address] [facility] [address] CO2 [Moles/Vol] 23.9 mmol/L Normal 21.0-32.0 [facility] Comment on above: Performed By: #### L 400.0001 #### [facility] [address] [facility] [address] Creatinine [Mass/Vol] 1.20 mg/dL Normal 0.70-1.20 [facility] Comment on above: Performed By: #### L 400.0001 #### [facility] [address] [place], [address] ECRCL 66.50 ml/min Normal 50-250 [facility] Comment on above: Performed By: #### L 400.0001 #### [facility] [address] [place], [address] GAP 11 Normal 5-15 [facility] Comment on above: Performed By: #### L 400.0001 #### [facility] [address] [place], [address] GFR/1.73 sq M.predicted among non-blacks MDRD (S/P/Bld) [Vol rate/Area] 71 mL/min/{1.73_m2} Normal >60 [facility] Comment on above: Result Comment: mL/m in/1.73m2 CKD-EPI Creatinine Equation (2020) Performed By: #### L 400.0001 #### [facility] [address] [place], [address] Glucose [Mass/Vol] 307 mg/dL High 70-99 [facility] Comment on above: Performed By: #### L 400.0001 #### [facility] [address] [place], [address] Potassium [Moles/Vol] 4.2 mmol/L Normal 3.3-5.1 [facility] Comment on above: Result Comment: Hemo lysis present, Results??could be affected. ?? Performed By: #### L 400.0001 #### [facility] [address] [place], [address] Sodium [Moles/Vol] 134 mmol/L Normal 133-145 [facility] Comment on above: Performed By: #### L 400.0001 #### [facility] [address] [place], [address] Urea nitrogen [Mass/Vol] 23 mg/dL High 4-19 [facility] Comment on above: Performed By: #### L 400.0001 #### [facility] [address] [place], [address] Bilirubin Test strip Ql (U)O rdered By: Byron Saldana on 03-10-2025 Bilirubin Ql (U) Negative Negative [facility] Carbon dioxide, total [Moles /volume] in Central venous bloodOrdered By: Chuy Santiago on 03-10-2025 CO2 [Moles/Vol] 23.9 mmol/L 21.0-32.0 [facility] Chloride assayOrdered By: Daylin Santiago on 03-10-2025 Chloride [Moles/Vol] 100 mmol/L 98-108 [facility] Emergency Department Summary on 03-10-2025 Emergency Department Summary [facility] Medical Records Department [address] [place] [address] Emergency Department Summary 03/10/25 MR#: [id number] Acct: [id number] Name: ITALO BURGOS Rep #: [id number] : 1970 54 From: Byron Saldana DO [...] Patient denies any neck or back pain. [facility] Medical History (Updated 03/10/25 @ 20:40 [...] (LHC) ( 06/26/11) Atherosclerotic heart disease of [place] coronary artery without angina pectoris Essential [...] ENT ENT (more content not included)... Normal [facility] Glomerular filtration rate ( GFR) estimation/1.73 sq m using serum, plasma, or whole bOrdered By: Chuy Santiago on 03-10-2025 GFR/1.73 sq M.predicted among non-blacks MDRD (S/P/Bld) [Vol rate/Area] 71 mL/min/{1.73_m2} >60 [facility] Comment on above: mL/min/1.73m2 CKD-EP I Creatinine Equation (2020) Ketones Test strip Ql (U)Ord ered By: Byron Saldana on 03-10-2025 Ketones Ql (U) Negative Negative [facility] Microscopic analysis of urin e for red blood cells (RBC)Ordered By: Byron Saldana on 03-10-2025 Microscopic analysis of urine for red blood cells (RBC) 10-25 SEEN /hpf 0-5 [facility] Mucus LM Ql (Urine sed)Order ed By: Byron Saldana on 03-10-2025 Mucus Ql (Urine sed) 0 SEEN /hpf [facility] Nitrite Test strip Ql (U)Ord ered By: Byron Saldana on 03-10-2025 Nitrite Ql (U) Positive High Negative [facility] Potassium measurement (mass/ volume)Ordered By: Chuy Santiago on 03-10-2025 Potassium (Unsp spec) [Mass/Vol] 4.2 mmol/L 3.3-5.1 [facility] Comment on above: Hemolysis present, R esults could be affected. Protein Test strip Ql (U)Ord ered By: Byron Saldana on 03-10-2025 Protein Ql (U) 100 mg/dl High Negative [facility] Serum creatinine measurement (mass/volume)Ordered By: [facility] on 03-10-2025 Creatinine [Mass/Vol] 1.20 mg/dL 0.70-1.20 [facility] Serum glucose measurement (m ass/volume)Ordered By: [facility] on 03-10-2025 Glucose [Mass/Vol] 307 mg/dL High 70-99 [facility] Serum or plasma calcium regi urement (mass/volume)Ordered By: [facility] on 03-10-2025 Calcium [Mass/Vol] 9.3 mg/dL 7.6-11.0 [facility] Serum or plasma urea nitroge n measurement (mass/volume)Ordered By: [facility] on 03-10-2025 Urea nitrogen [Mass/Vol] 23 mg/dL High 4-19 [facility] Sodium levelOrdered By: [facility] on 03-10-2025 Sodium [Moles/Vol] 134 mmol/L 133-145 [facility] Squamous epithelial cells de tection in urine sediment by light microscopyOrdered By: Byron Saldana on 03-10-2025 Epithelial cells.squamous LM Ql (Urine sed) 0-5 SEEN /hpf 0-5 [facility] Urinalysis, Completeon 03-10 BACTERIA 2+ /hpf Normal None Seen [facility] Comment on above: Order Comment: ALAINA TER SPECIMEN Performed By: #### L 501.080 #### [facility] [address] [place], [place], [address] EPI,SQUAMOUS 0-5 SEEN Normal 0-5 [facility] Comment on above: Order Comment: ALAINA TER SPECIMEN Performed By: #### L 501.080 #### [facility] [address] [place], [address] RBC 10-25 SEEN Normal 0-5 [facility] Comment on above: Order Comment: ALAINA TER SPECIMEN Performed By: #### L 501.080 #### [facility] [address] [place], [address] WBC 50-100 SEEN Normal 0-5 [facility] Comment on above: Order Comment: ALAINA TER SPECIMEN Performed By: #### L 501.080 #### [facility] [address] [place], [address] Mucus Ql (Urine sed) 0 SEEN Normal [facility] Comment on above: Order Comment: ALAINA TER SPECIMEN Performed By: #### L 501.080 #### [facility] [address] [place], [place], [address] Urine clarityOrdered By: Marline Saldana on 03-10-2025 Clarity (U) Cloudy Clear [facility] Urine color determinationOrd ered By: Byron Saldana on 03-10-2025 Color (U) Yellow Yellow [facility] Urine glucose detectionOrder ed By: Byron Saldana on 03-10-2025 Glucose Ql (U) 1000 mg/dl High Normal [facility] Urine leukocyte esterase det ection by dipstickOrdered By: Byron Saldana on 03-10-2025 Leukocyte esterase Test strip Ql (U) 500 /ul High Negative [facility] Urine pHOrdered By: Byron means on 03-10-2025 pH (U) 6.0 [pH] 5.0 - 8.0 [facility] Urine sediment bacteria coun t by microscopy (number/high power field)Ordered By: Byron Saldana on 03-10-2025 Bacteria LM.HPF (Urine sed) [#/Area] 2 /[HPF] None Seen [facility] Urine specific gravity measu rementOrdered By: Byron Saldana on 03-10-2025 Specific gravity (U) [Rel density] 1.015 1.002-1.030 [facility] Urine urobilinogen measureme ntOrdered By: Byron Saldana on 03-10-2025 Urobilinogen Ql (U) Normal mg/dl Normal [facility] White blood cell countOrdere d By: Byron Benedictoedmond on 03-10-2025 White blood cell count 50-100 SEEN /hpf 0-5 [facility] BRIEF OP NOTon 02-25-2025 BRIEF OP NOT HNO ID: [id number] Author: JONNY SOFIA MD Service: Radiology Author [...] BRIEF OPERATIVE / PROCEDURE NOTE LOG ID: [id number] SURGERY/PROCEDURE DATE: 02/25/2025 INCISION/PROCEDURE START TIME: 10:05 AM INCISION CLOSE/PROCEDURE END TIME: 10:26 AM SURGEON(S)/PROCEDURALIS T(S) AND INFORMATION SECURITY SYSTEMS INSTRUCTOR(S): Surgeons and Role: * Dona Martinez MD - Primary * Jonny Sofia MD - Assisting No Additional Staff SURGERY/PROCEDURE(S): perc. Neph tube exchange 10F ANESTHESIA: Procedural Sedation FINDINGS: successful exchange ESTIMATED BLOOD LOSS: 0 ml SPECIMENS: None COMPLICATIONS: None IMPLANTS: 10Fr [employer] CLOSURE TECHNIQUE: Non-primary PRE-OP/PRE-PROCEDURE DIAGNOSIS: 54M s/p renal transplant 2020 c/b obstructing ureteral stone with hydronephrosis s/p perc neph on 01/27 POST-OP/POST-PROCEDURE DIAGNOSIS: Same as Preop SIGNATURE: Jonny Sofia MD PATIENT NAME: Italo Burgos DATE: February 25, 2025 TIME: 10:31 AM Normal [facility] CNPNon 02-25-2025 CNPN Telephone (Angio) ITALO BURGOS ([id number]) 1970 M Date Time Provider Department 02/25/25 [...] for Visit: IR Outpatient Tube Appointment Request [[id number]] Prescriptions as of 02/25/2025 - mycophenolate sodium [...] 3 mg/actuation nasal spray (BAQSIMI) Use 1 [place] in the nose as needed for low [...] Encounter Status (more content not included)... [facility] H[facility] PHYSICAL[facility] HISTORY PHYSICAL HNO ID: [id number] Author: JONNY SOFIA MD Service: Radiology Author [...] hydronephrosis s/p perc neph on 01/27; 10F [employer] routine exchange PROCEDURE SCHEDULED: Procedure(s) with comments: PERC EXCHANGE NEPHROSTOMY CATH, INCLUDING DIAGNOSTIC NEPHROSTOGRAM/URETEROGR AM WHEN PERFORMED,IMAGING GUIDANCE AND ALL ASSOCIATED RAD PETER (N/A) - NEPH TUBE CHANGE 4 WKS FROM 01/27 PER R/F RADIOLOGY ORDER PLACED: PAST ANESTHESIA HISTORY: No history of adverse event PAST MEDICAL HISTORY Diagnosis Date Acute diastolic (congestive) heart failure (HCC) Bronchitis Chronic kidney failure, stage 4 (severe) ([facility]) 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 ([facility]) 12/16/2018 Depression Detached retina DM type 2, goal HbA1c < 7% ([facility]) Erectile dysfunction, unspecified erectile dysfunction type ESRD (end stage renal disease) ([facility]) GERD (gastroesophageal reflux disease) Hyperlipidemia Kidney replaced by transplant ([facility]) Kidney stones LUANNE (obstructive sleep apnea) PNA (pneumonia) Proliferative retinopathy 02/10/2019 PTE (post-transplant erythrocytosis) Snoring Unspecified essential hypertension Vitamin D deficiency Vitamin D deficiency PAST SURGICAL HISTORY Procedure Laterality Date AMPUTATION TOE,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 08/08/2018 Done at [facility] by Satish Phan MD CHOLECYSTECTOMY 1998 Cholecystectomy COLONOSCOPY 12/04/2018 COLONOSCOPY SCREENING 04/01/2024 CYSTO W/COMPLEX REMOVAL STONE AND STENT 1999 EGD 12/04/2018 EGD W/O [facility] SPEC VARICIES INJ 04/01/2024 PAST SURGICAL HISTORY [...] 3 mg/actuation nasal spray (BAQSIMI) Use 1 [place] in the nose as needed for low [...] Good d (more content not included)... Normal [facility] IR EXCHANGE CATH PERC NEPHon 02-25-2025 IR EXCHANGE CATH PERC NEPH * * *Final Report* * * DATE OF EXAM: Feb 25 2025 10:26AM [facility] 0777 - IR EXCHANGE CATH PERC [...] contrast injection. Pre-existing genitourinary catheter: 10 F [employer] nephrostomy Genitourinary catheter(s) placed: 10 F [employer] nephrostomy Findings: Distal ureteral obstruction present [...] The procedure was performed by the: the behavioral assistant, and the attending radiologist personally supervised the entire procedure. The attending radiologist performed the following procedural activities: Close supervision and assistance of the procedure IMPRESSION: Successful exchange of a 10French nephrostomy tube in the right (more content not included)... Normal [facility] NURSING PROGon 02-25-2025 NURSING PROG HNO ID: [id number] Author: SONNY MANDUJANO RN Service: Interventional Radiology Author Type: Registered Nurse Type: Nursing Progress Note Filed: 02/26/2025 08:09 Note Text: Attempted post procedure phone call. Left VM for patient to return call to [phone] with any questions/concerns. Normal [facility] NURSING PROG HNO ID: [id number] Author: KAYCEE FLETCHER, ANDER Service: Nursing Author Type: Registered Nurse Type: Nursing Progress Note Filed: 02/25/2025 09:15 Note Text: Pt BG 409, on recheck BG 445. Dr. Ry corado, pt is asymptomatic. [facility]- Dr. Sofia bedside to assess pt. Normal [facility] NURSING PROG HNO ID: [id number] Author: KAYCEE FLETCHER, RN Service: Nursing Author Type: Registered Nurse Type: Nursing Progress Note Filed: 02/25/2025 08:39 Note Text: Pt took a cab here without a family member for his neph tube exchange. Pt is agreeable to local anesthetic only- spoke with Dr. Martinez who states ok for patient to have procedure and go home with cab if local anesthetic only. Normal [facility] NURSING PROGon 02-18-2025 NURSING PROG HNO ID: [id number] Author: KAYCEE FLETCHER, ANDER Service: Nursing Author Type: Registered Nurse Type: Nursing Progress Note Filed: 02/23/2025 08:14 Note Text: Confirmed instructions on 02/23 with Italo Please call [phone] to confirm you have received the below instructions for your upcoming radiology procedure. Italo Burgos is scheduled for the following procedure Nephrostomy tube exchange . Scheduled on 02/25/25, at [facility]. If instructions are not followed your procedure may need to be cancelled or rescheduled. Arrival: Arrival at 8:00 AM to desk QB-1 ([facility]) and check in for your procedure. Please bring your Photo ID and Insurance Card. A general consent may need to be signed. [employer] Survey Worker parking is located in front of the main entrance ( building) at [address], [place]. Garage parking is located across the street from the main entrance at [address] [place], [place]. From the main entrance, go straight [...] allergy? No Labs: Labs completed on 01/29/25. Component Design Engineer/Transportation: You will need a light truck driver for your procedure. You will need a responsible adult to accompany you to and from the procedure. If you develop any of the following symptoms before your procedure, please call [phone]. Chills, joint pain, rash, sore throat, cough, [...] If you have any questions please call [phone] Normal [facility] CNPKaley 02-15-2025 CNPN Telephone (PHMEWO) ITALO BURGOS ([id number]) 1970 M Date Time Provider Department 02/15/25 VERNA JENSEN PHWO During your visit today, we recorded the following information about you: [facility]/15/2025 9:52 AM Signed Called patient for scheduled phone appt but unable to reach after multiple attempts. LMOM for mobile phone. Unable to connect to home phone - maybe disconnected? Primary Care Pharmacy Rescheduling Outreach Call center, please contact patient and reschedule telephone visit for Diabetes management within ~4 week(s). (Visit length: 60 minutes) Thank you, Verna Jensen, [facility] 02/15/2025 9:51 AM [facility] 02/17/2025 9:26 AM Signed 2nd attempt to reschedule appt. Called and lmom. Sent YuMingle message. [facility] 02/22/2025 8:43 AM Signed Called and spoke with patient. Rescheduled appt for 03/08. Verna Jensen, PharmD, [facility] Primary Care Clinical Pharmacist Allergies As of [...] 3 mg/actuation nasal spray (BAQSIMI) Use 1 [place] in the nose as needed for low [...] Encounter Status:Closed by VERNA JENSEN on 02/15/25 [facility] CNOVgerardo 02-11-2025 CNOV Office Visit (TXCTGL ) ITALO BURGOS ([id number]) 1970 M Date Time Provider Department 02/11/25 10:00 AM KIDNEY TXP CLINIC TXCTGL During your visit today, we recorded the following information about you: Referring Provider: ALANA KENT [[id number]] Allergies As of Date: 02/11/2025 (No Known Allergies) Date Reviewed: 02/05/2025 Reviewed by: Francheska Carrington MA - Fully Assessed Primary Visit Diagnosis:Kidney replaced by transplant ([facility]) [Z94.0] Prescriptions as of 02/12/2025 - mycophenolate [...] 3 mg/actuation nasal spray (BAQSIMI) Use 1 [place] in the nose as needed for low [...] Status:Closed by DALE RANGEL on 02/12/25 Normal [facility] CNPNon 02-09-2025 CNPN Telephone (PODCCP) ITALO BURGOS ([id number]) 1970 M Date Time Provider Department 02/09/25 [facility] During your visit today, we [...] 3 mg/actuation nasal spray (BAQSIMI) Use 1 [place] in the nose as needed for low [...] Encounter Status:Closed by KERRY OSCAR on 02/09/25 [facility] Edna 02-08-2025 ANDREWS Telephone (TXCTGL) ITALO BURGOS ([id number]) 1970 M Date Time Provider Department 02/08/25 AMANDA HAYES TXCTGL During your visit today, we recorded the following information about you: Amanda Hayes LISW 02/08/2025 2:03 PM Signed SW attempted to return pt's phone call. SW left pt a voicemail and will await return phone call. SARA Sahu[employer] Model Allergies As of Date: 02/08/2025 (No Known [...] 3 mg/actuation nasal spray (BAQSIMI) Use 1 [place] in the nose as needed for low [...] Status:Closed by AMANDA HAYES on 02/08/25 Normal [facility] Emergency Department Summary on 02-07-2025 Emergency Department Summary [facility] Medical Records Department [address] [place] [address] Emergency Department Summary 02/07/25 MR#: [id number] Acct: [id number] Name: ITALO BURGOS Rep #: [id number] : 1970 54 From: Toni Nelson DO [...] kidney and therefore was transferred up to [facility] where they remove the kidney stone and placed a urostomy tube. Patient notices that his bag is leaking and would like a new bag. He denies fevers or chills or sweats. He is otherwise doing well. His transplant was 5 years ago. [facility] Medical History Congestive heart failure (CHF) [...] (LHC) ( 06/26/11) Atherosclerotic heart disease of [place] coronary artery without angina pectoris Essential [...] by transplant H (more content not included)... [facility] 02-05-2025 OV Office Visit (INTMWS ) BURGOSITALO ([id number]) 1970 M Date Time Provider Department 02/05/25 [...] a follow-up appointment with Urology at the [facility] next to discuss the next steps, including whether the tube will be removed or kept in place. Dr. Maryjane Quinteros will see you at [facility] [place]. - Please ensure you have transportation arranged [...] depression. This prescription has been sent to [facility]. - If you experience any side effects or feel the medication is not helping, please let me know so we can adjust your treatment. We discussed your living situation and overall well-being: - [facility]. I encourage you to [...] new device. Italo is currently residing at [facility], a [facility]pc for homeless [facility], since September. He previously [...] 12.5 m (more content not included)... [facility] ANDREN Telephone (Angio) ITALO BURGOS ([id number]) 1970 M Date Time Provider Department 02/05/25 [...] hours please call or and ask the kiln head house operator to page the interventional radiology supervisor pharmacy salesperson. 5) To change or schedule an appointment [...] for nephrostomy tube care instructions and demonstrations. [email or web address] Activity and Exercise: (When I can [...] please call Interventional Radiology nurse triage line [phone], Saturday - Saturday 9 a.m. - 4 p.m. After hours please call and ask for Interventional Radiology Fellow pharmacy salesperson, pager [phone]. In the event of acute symptoms report [...] 1 mg (more content not included)... Normal [facility] 02-04-2025 CNPN Telephone (PODCCP) ITALO BURGOS ([id number]) 1970 M Date Time Provider Department 02/04/25 [...] 3 mg/actuation nasal spray (BAQSIMI) Use 1 [place] in the nose as needed for low [...] Status:Closed by AZRA HOGAN on 02/04/25 Normal [facility] [place] 02-03-2025 BANNER Telephone (TXCTGL) ITALO BURGOS ([id number]) 1970 M Date Time Provider Department 02/03/25 AMANDA HAYES TXCTGL During your visit today, we recorded the following information about you: Amanda Hayes LISW 02/03/2025 2:14 PM Signed ADDY made another attempt to contact ([phone]) pt regarding the pt possibility of him being homeless. ADDY left a voicemail and will await return phone call. [employer] Model Allergies As of Date: 02/03/2025 (No Known [...] 3 mg/actuation nasal spray (BAQSIMI) Use 1 [place] in the nose as needed for low [...] Encounter Status:Closed by AMANDA HAYES on 02/03/25 [facility] Telephone (Angio) ITALO BURGOS ([id number]) 1970 M Date Time Provider Department 02/03/25 [...] 3 mg/actuation nasal spray (BAQSIMI) Use 1 [place] in the nose as needed for low [...] Encounter Status:Closed by DANNI SINGH on 02/03/25 [facility] CNPKaley 02-02-2025 CNPN Telephone (UROLMN) ITALO BURGOS ([id number]) 1970 Date Time Provider Department 02/02/25 BON [...] MD Gambrell [employer], Jamal; Bon Concepcion RN Ak Delfino. This one we can add on [...] Rivas RN 02/02/2025 12:20 PM Signed [facility], Neli Yee MD; Bon Concepcion RN I [...] 3 mg/actuation nasal spray (BAQSIMI) Use 1 [place] in the nose as needed for low [...] 11/23/2022 Keyonna (more content not included)... Normal [facility] CBC panel Auto (Bld)on 01-29 Erythrocyte distribution width (RBC) [Ratio] 11.9 % Normal 11.5-15.0 [facility] Comment on above: Order Comment: Speci mario Type: BLOOD SPECIMEN Ordering Facility: [facility] Address: [address] [place] [address] Performed By: #### 5 8410-2 #### [facility] CLIA [id number] [address] [place] [address] [place] Hematocrit (Bld) [Volume fraction] 38.6 % Low 39.0-51.0 [facility] Comment on above: Order Comment: Gabriel martin Type: BLOOD SPECIMEN Ordering Facility: [facility] Address: [address] [place] [address] Performed By: #### 5 8410-2 #### [facility] CLIA [id number] [address] [place] [address] [place] Hemoglobin (Bld) [Mass/Vol] 13.1 g/dL Normal 13.0-17.0 [facility] Comment on above: Order Comment: Speci men Type: BLOOD SPECIMEN Ordering Facility: [facility] Address: [address] [place] [address] Performed By: #### 5 8410-2 #### [facility] CLIA [id number] [address] [place] [address] [place] MCH (RBC) [Entitic mass] 30.4 pg Normal 26.0-34.0 [facility] Comment on above: Order Comment: Speci men Type: BLOOD SPECIMEN Ordering Facility: [facility] Address: [address] [place] [address] Performed By: #### 5 8410-2 #### [facility] CLIA [id number] [address] [place] [address] [place] MCHC (RBC) [Mass/Vol] 33.9 g/dL Normal 30.5-36.0 [facility] Comment on above: Order Comment: Speci men Type: BLOOD SPECIMEN Ordering Facility: [facility] Address: [address] [place] [address] Performed By: #### 5 8410-2 #### [facility] CLIA [id number] [address] [place] [address] [place] MCV (RBC) [Entitic vol] 89.6 fL Normal 80.0-100.0 [facility] Comment on above: Order Comment: Speci men Type: BLOOD SPECIMEN Ordering Facility: [facility] Address: [address] [place] [address] Performed By: #### 5 8410-2 #### [facility] CLIA [id number] [address] [place] [address] [place] Nucleated RBC (Bld) [#/Vol] 10*3/uL Normal <0.01 [facility] Comment on above: Order Comment: Speci men Type: BLOOD SPECIMEN Ordering Facility: [facility] Address: [address] [place] [address] Performed By: #### 5 8410-2 #### [facility] CLIA [id number] [address] [place] [address] [place] Platelet mean volume (Bld) [Entitic vol] 9.6 fL Normal 9.0-12.7 [facility] Comment on above: Order Comment: Speci men Type: BLOOD SPECIMEN Ordering Facility: [facility] Address: [address] [place] [address] Performed By: #### 5 8410-2 #### [facility] CLIA [id number] [address] [place] [address] [place] Platelets (Bld) [#/Vol] 253 10*3/uL Normal 150-400 [facility] Comment on above: Order Comment: Speci men Type: BLOOD SPECIMEN Ordering Facility: [facility] Address: [address] [place] [address] Performed By: #### 5 8410-2 #### [facility] CLIA [id number] [address] [place] [address] [place] RBC (Bld) [#/Vol] 4.31 10*6/uL Normal 4.20-6.00 [facility] Comment on above: Order Comment: Speci men Type: BLOOD SPECIMEN Ordering Facility: [facility] Address: [address] [place] [address] Performed By: #### 5 8410-2 #### [facility] CLIA [id number] [address] [place] [address] [place] WBC (Bld) [#/Vol] 5.28 10*3/uL Normal 3.70-11.00 [facility] Comment on above: Order Comment: Speci men Type: BLOOD SPECIMEN Ordering Facility: [facility] Address: [address] [place] [address] Performed By: #### 5 8410-2 #### [facility] CLIA [id number] [address] [place] [address] [place] CNDSon 01-29-2025 CNDS HNO ID: [id number] Author: SHANA CANTOR MD Service: General Internal [...] patient counseling. SIGNATURE: Shana Cantor MD, MRCP ([facility] [phone] DATE of SERVICE: January 31, 2025 TIME [...] Appointment - Urology; less than 2 weeks; [facility] Provider; NELI WESLEY ONCE Comments: Kidney transplant [...] with associated hydroureteronephrosis. He was transferred to [facility] for higher-level management and underwent successful percutaneous [...] hydroureteronephrosis on (more content not included)... Normal [facility] CONSULT PROGon 01-29-2025 CONSULT PROG HNO ID: [id number] Author: LASHAE WILLIS APRN.CNP Service: Nephrology Author Type: Nurse Practitioner Type: Consult Progress Note Filed: 01/29/2025 14:04 Note Text: [facility] [place] NEPHROLOGY TRANSPLANT CONSULT SERVICE PROGRESS NOTE INTERVAL [...] eye, RLE weakness, depression, GERD, HLD, UTI, WA, DKA, CAD, renal calculi, hematuria, LUANNE, cholecystectomy, [...] Cr ap (more content not included)... Normal [facility] Renal function 2000 panelon 01-29-2025 Albumin [Mass/Vol] 2.9 g/dL Low 3.9-4.9 [facility] Comment on above: Order Comment: Speci men Type: SWAB Ordering Facility: [facility] Address: [address] [place] [address] Performed By: #### S APCR #### [facility] CLIA [id number] [address] [place] [address] [place] Anion gap [Moles/Vol] 10 mmol/L Normal 8-15 [facility] Comment on above: Order Comment: Speci men Type: SWAB Ordering Facility: [facility] Address: [address] [place] [address] Performed By: #### S APCR #### [facility] CLIA [id number] [address] [place] [address] [place] Calcium [Mass/Vol] 8.9 mg/dL Normal 8.5-10.2 [facility] Comment on above: Order Comment: Speci men Type: SWAB Ordering Facility: [facility] Address: [address] [place] [address] Performed By: #### S APCR #### [facility] CLIA [id number] [address] [place] [address] [place] Chloride [Moles/Vol] 107 mmol/L Normal 98-107 [facility] Comment on above: Order Comment: Speci men Type: SWAB Ordering Facility: [facility] Address: [address] [place] [address] Performed By: #### S APCR #### [facility] CLIA [id number] [address] [place] [address] [place] CO2 [Moles/Vol] 22 mmol/L Normal 22-30 [facility] Comment on above: Order Comment: Speci men Type: SWAB Ordering Facility: [facility] Address: [address] [place] [address] Performed By: #### S APCR #### [facility] CLIA [id number] [facility] [place] [address] [place] Creatinine [Mass/Vol] 1.98 mg/dL High 0.73-1.22 [facility] Comment on above: Order Comment: Speci men Type: SWAB Ordering Facility: [facility] Address: [address] [place] [address] Performed By: #### S APCR #### [facility] CLIA [id number] [address] [place] [address] [place] Creatinine and Glomerular filtration rate.predicted panel (S/P/Bld) 39 mL/min/1.73m??? Low >=60 [facility] Comment on above: Order Comment: Speci men Type: SWAB Ordering Facility: [facility] Address: [address] [place] [address] Result Comment: Candace mated Glomerular Filtration Rate [...] GFR. Performed By: #### S APCR #### [facility] CLIA [id number] [address] [place] [address] [place] Glucose [Mass/Vol] 248 mg/dL High 74-99 [facility] Comment on above: Order Comment: Speci men Type: SWAB Ordering Facility: [facility] Address: [address] [place] [address] Result Comment: The [place] [employer] (ADA) provides guidance for cutoff [...] Standards of Medical Care in Diabetes 2016, [place] [employer]. Diabetes Care. 2016.39(Suppl 1). Performed By: #### S APCR #### [facility] CLIA [id number] [address] [place] [address] [place] Phosphate [Mass/Vol] 2.2 mg/dL Low 2.7-4.8 [facility] Comment on above: Order Comment: Speci men Type: SWAB Ordering Facility: [facility] Address: [address] [place] [address] Performed By: #### S APCR #### [facility] CLIA [id number] [address] [place] [address] [place] Potassium [Moles/Vol] 4.6 mmol/L Normal 3.7-5.1 [facility] Comment on above: Order Comment: Speci men Type: SWAB Ordering Facility: [facility] Address: [address] [place] [address] Performed By: #### S APCR #### [facility] CLIA [id number] [address] [place] [address] [place] Sodium [Moles/Vol] 139 mmol/L Normal 136-144 [facility] Comment on above: Order Comment: Speci men Type: SWAB Ordering Facility: [facility] Address: [address] [place] [address] Performed By: #### S APCR #### [facility] CLIA [id number] [address] [place] [address] [place] Urea nitrogen [Mass/Vol] 38 mg/dL High 9-24 [facility] Comment on above: Order Comment: Speci men Type: SWAB Ordering Facility: [facility] Address: [address] [place], [place] [address] Performed By: #### S APCR #### [facility] CLIA [id number] [address] [facility] [place] [address] [place] THERAPY NTon 01-29-2025 THERAPY NT HNO ID: [id number] Author: LASHAE VALLE, OT/L Service: Occupational Therapy Author Type: Occupational Therapist Type: Therapy (PT/OT/Speech/Resp) Filed: 01/29/2025 11:47 Note Text: Occupational Therapy Evaluation Summary SERVICE DATE: 01/29/2025 SERVICE TIME: 1049 to 1127 ROOM: [place] [address] OT 6 Clicks Score: 22 DISCHARGE RECOMMENDATIONS Home Recommended Discharge Disposition Comments: Safe for d/c back to [facility]pc from OT persepctive. May benefit from SNF [...] and mobility, able to complete transfer to [facility] with SBA-CGA. Primarily limited by baseline visual deficits impacting ability to manage nephrostomy tube. Adapted neph tube bag for low vision with increased size and contrast of text/numbers. Pt reporting improvement with adjustment. Provided pt with information on [facility] for assistance with low vision resources. Pt is currently homeless with no family support available. From a therapy perspective, pt safe to d/c back to homeless [facility] as pt is functioning at recent baseline. [...] Patient Lives With: Other: See Comment (Homeless fpc) Assistance Available: None Entry To Home: No Stairs Equipment Owned: Rollator, Cane PRIOR FUNCTIONAL LEVEL Within Functional Limits Pt reports overall IND with ADLs. Ambulates using rollator, denies falls. Has been staying at homeless fpc, reports no family support Baseline Cognition: Oriented [...] No Skilled Need TREATMENT INTERVENTIONS Evaluation, Self [facility] Management ([id number]) Timed Code Treatment (minutes): 23 Skilled Treatment Time (minutes): 38 TRAINING AND EDUCATION PROVIDED Activity Adaptation/Compensatory Strategies, Bed Mobility, Benefits of In-Hospital Mobility, Discharge Planning, Functional Mobility Involving ADLs, Low Vision Strategies, Home Set-up/Modifications, IADLs/Home Management, Identification of Systems of Support, Insight into Deficits, Life Roles/Routines/Habits, Role of Occupational Therapy, Standing Balance to Improve [place] with ADLs/Self-Care, Transfer - Sit to Stand, Transfer - Toilet/Commode, Sitting Balance to Improve [place] with ADLs/Self-Care THERAPEUTIC SKILLS USED Activity Dosing, [...] health stat (more content not included)... Normal [facility] Tacrolimus Bld-mCncon 2024 Tacrolimus (Bld) [Mass/Vol] 10.7 ng/mL Normal 5.0-20.0 [facility] Comment on above: Order Comment: Gabriel martin Type: BLOOD SPECIMENOrdering Facility: [facility] Address: [address] [place] [address] Result Comment: Eileen vidualized target levels for [...] situation. Test performed by chemiluminescent immunoassay using [employer] i. Performed By: #### 1 1253-2 ####[facility] [id number] [place] [address] [place] CBC panel Auto (Bld)on 01-28 Erythrocyte distribution width (RBC) [Ratio] 11.9 % Normal 11.5-15.0 [facility] Comment on above: Order Comment: Gabriel martin Type: SWAB Ordering Facility: [facility] Address: [address] [place] [address] Performed By: #### S APCR #### [facility] CLIA [id number] [address] [place] [address] [place] Hematocrit (Bld) [Volume fraction] 37.8 % Low 39.0-51.0 [facility] Comment on above: Order Comment: Gabriel martin Type: SWAB Ordering Facility: [facility] Address: [address] [place] [address] Performed By: #### S APCR #### [facility] CLIA [id number] [address] [place] [address] [place] Hemoglobin (Bld) [Mass/Vol] 13.2 g/dL Normal 13.0-17.0 [facility] Comment on above: Order Comment: Speci men Type: SWAB Ordering Facility: [facility] Address: [address] [place] [address] Performed By: #### S APCR #### [facility] CLIA [id number] [address] [place] [address] [place] MCH (RBC) [Entitic mass] 30.9 pg Normal 26.0-34.0 [facility] Comment on above: Order Comment: Speci men Type: SWAB Ordering Facility: [facility] Address: [address] [place] [address] Performed By: #### S APCR #### [facility] CLIA [id number] [address] [place] [address] [place] MCHC (RBC) [Mass/Vol] 34.9 g/dL Normal 30.5-36.0 [facility] Comment on above: Order Comment: Speci men Type: SWAB Ordering Facility: [facility] Address: [address] [place] [address] Performed By: #### S APCR #### [facility] CLIA [id number] [address] [place] [address] [place] MCV (RBC) [Entitic vol] 88.5 fL Normal 80.0-100.0 [facility] Comment on above: Order Comment: Speci men Type: SWAB Ordering Facility: [facility] Address: [address] [place] [address] Performed By: #### S APCR #### [facility] CLIA [id number] [address] [place] [address] [place] Nucleated RBC (Bld) [#/Vol] 10*3/uL Normal <0.01 [facility] Comment on above: Order Comment: Speci men Type: SWAB Ordering Facility: [facility] Address: [address] [place] [address] Performed By: #### S APCR #### [facility] CLIA [id number] [address] [place] [address] [place] Platelet mean volume (Bld) [Entitic vol] 9.7 fL Normal 9.0-12.7 [facility] Comment on above: Order Comment: Speci men Type: SWAB Ordering Facility: [facility] Address: [address] [place] [address] Performed By: #### S APCR #### [facility] CLIA [id number] [address] [place] [address] [place] Platelets (Bld) [#/Vol] 206 10*3/uL Normal 150-400 [facility] Comment on above: Order Comment: Speci men Type: SWAB Ordering Facility: [facility] Address: [address] [place] [address] Performed By: #### S APCR #### [facility] CLIA [id number] [address] [place] [address] [place] RBC (Bld) [#/Vol] 4.27 10*6/uL Normal 4.20-6.00 [facility] Comment on above: Order Comment: Speci men Type: SWAB Ordering Facility: [facility] Address: [address] [place] [address] Performed By: #### S APCR #### [facility] CLIA [id number] [address] [place] [address] [place] WBC (Bld) [#/Vol] 6.53 10*3/uL Normal 3.70-11.00 [facility] Comment on above: Order Comment: Speci men Type: SWAB Ordering Facility: [facility] Address: [address] [place] [address] Performed By: #### S APCR #### [facility] CLIA [id number] [address] [place] [address] [facility] CONSULT PROGon 01-28-2025 CONSULT PROG HNO ID: [id number] Author: LASHAE WILLIS APRN.CNP Service: Nephrology Author Type: Nurse Practitioner Type: Consult Progress Note Filed: 01/28/2025 13:26 Note Text: Department of Kidney Medicine Medical Special[facility] [place] NEPHROLOGY TRANSPLANT CONSULT SERVICE PROGRESS NOTE INTERVAL [...] eye, RLE weakness, depression, GERD, HLD, UTI, WA, DKA, CAD, renal calculi, hematuria, LUANNE, cholecystectomy, [...] -Renal imaging CT AP 01/26/25: Severely atrophic [place] kidneys. Right pelvic transplanted kidney transplanted right kidney ureter 10 mm calculus with severe upstream hydroureteronephrosis. Transplant kidney perinephric stranding which may represent back pressure. Bladder: Markedly concentrically thi (more content not included)... Normal [facility] CONSULT PROG HNO ID: [id number] Author: JORDYN ROBB MD Service: Urology Author [...] sign off Jordyn Cates MD Urology PGY3 [facility] [place] After 5pm or weekends: [id number] Will discuss plan with staff OBJECTIVE Vital [...] draining [facility] Labs: Reviewed Imaging Reviewed Normal [facility] NURSING PROGon 01-28-2025 NURSING PROG HNO ID: [id number] Author: CHARAN TRINIDAD, RN Service: Nursing Author [...] it should be 1000 plus 500. Normal [facility] Renal function 2000 panelon 01-28-2025 Albumin [Mass/Vol] 3.0 g/dL Low 3.9-4.9 [facility] Comment on above: Order Comment: Speci men Type: BLOOD SPECIMEN Ordering Facility: [facility] Address: [address] [place] [address] Performed By: #### 1 1253-2 #### [facility] CLIA [id number] [address] [place] [address] [place] Anion gap [Moles/Vol] 11 mmol/L Normal 8-15 [facility] Comment on above: Order Comment: Speci men Type: BLOOD SPECIMEN Ordering Facility: [facility] Address: [address] [place] [address] Performed By: #### 1 1253-2 #### [facility] CLIA [id number] [address] [place] [address] [place] Calcium [Mass/Vol] 8.8 mg/dL Normal 8.5-10.2 [facility] Comment on above: Order Comment: Speci men Type: BLOOD SPECIMEN Ordering Facility: [facility] Address: [address] [place] [address] Performed By: #### 1 1253-2 #### [facility] CLIA [id number] [address] [place] [address] [place] Chloride [Moles/Vol] 103 mmol/L Normal 98-107 [facility] Comment on above: Order Comment: Speci men Type: BLOOD SPECIMEN Ordering Facility: [facility] Address: [address] [place] [address] Performed By: #### 1 1253-2 #### [facility] CLIA [id number] [address] [place] [address] [place] CO2 [Moles/Vol] 18 mmol/L Low 22-30 [facility] Comment on above: Order Comment: Speci men Type: BLOOD SPECIMEN Ordering Facility: [facility] Address: [address] [place] [address] Performed By: #### 1 1253-2 #### [facility] CLIA [id number] [address] [place] [address] [place] Creatinine [Mass/Vol] 3.04 mg/dL High 0.73-1.22 [facility] Comment on above: Order Comment: Mii men Type: BLOOD SPECIMEN Ordering Facility: [facility] Address: [address] [place] [address] Performed By: #### 1 1253-2 #### [facility] CLIA [id number] [address] [place] [address] [place] Creatinine and Glomerular filtration rate.predicted panel (S/P/Bld) 23 mL/min/1.73m??? Low >=60 [facility] Comment on above: Order Comment: Gabriel men Type: BLOOD SPECIMEN Ordering Facility: [facility] Address: [address] [place] [address] Result Comment: Candace mated Glomerular Filtration Rate [...] GFR. Performed By: #### 1 1253-2 #### [facility] CLIA [id number] [address] [place] [address] [place] Glucose [Mass/Vol] 362 mg/dL High 74-99 [facility] Comment on above: Order Comment: Gabriel men Type: BLOOD SPECIMEN Ordering Facility: [facility] Address: [address] [place] [address] Result Comment: The [place] Diabetes [employer] (ADA) provides guidance for cutoff [...] Standards of Medical Care in Diabetes 2016, [place] [employer]. Diabetes Care. 2016.39(Suppl 1). Performed By: #### 1 1253-2 #### [facility] CLIA [id number] [address] [place] [address] [place] Phosphate [Mass/Vol] 2.6 mg/dL Low 2.7-4.8 [facility] Comment on above: Order Comment: Gabriel martin Type: BLOOD SPECIMEN Ordering Facility: [facility] Address: [address] [place] [address] Performed By: #### 1 1253-2 #### [facility] CLIA [id number] [address] [place] [address] [place] Potassium [Moles/Vol] 4.8 mmol/L Normal 3.7-5.1 [facility] Comment on above: Order Comment: Gabriel martin Type: BLOOD SPECIMEN Ordering Facility: [facility] Address: [address] [place] [address] Performed By: #### 1 1253-2 #### [facility] CLIA [id number] [address] [place], [place] [address] [place] Sodium [Moles/Vol] 132 mmol/L Low 136-144 [facility] Comment on above: Order Comment: Mii men Type: BLOOD SPECIMEN Ordering Facility: [facility] Address: [address] [place] [address] Performed By: #### 1 1253-2 #### [facility] CLIA [id number] [address] [place], [place] [address] [place] Urea nitrogen [Mass/Vol] 51 mg/dL High 9-24 [facility] Comment on above: Order Comment: Speci men Type: BLOOD SPECIMEN Ordering Facility: [facility] Address: [address] [place] [address] Performed By: #### 1 1253-2 #### [facility] CLIA [id number] [address] [place] [address] [place] Albumin [Mass/Vol] 2.5 g/dL Low 3.9-4.9 [facility] Comment on above: Order Comment: Speci men Type: BLOOD SPECIMEN Ordering Facility: [facility] Address: [address] [place] [address] Performed By: #### 1 1253-2 #### [facility] CLIA [id number] [address] [place] [address] [place] Anion gap [Moles/Vol] 14 mmol/L Normal 8-15 [facility] Comment on above: Order Comment: Speci men Type: BLOOD SPECIMEN Ordering Facility: [facility] Address: [address] [place], [place] [address] Performed By: #### 1 1253-2 #### [facility] CLIA [id number] [address] [place] [address] [place] Calcium [Mass/Vol] 8.7 mg/dL Normal 8.5-10.2 [facility] Comment on above: Order Comment: Speci men Type: BLOOD SPECIMEN Ordering Facility: [facility] Address: [address] [place] [address] Performed By: #### 1 1253-2 #### [facility] CLIA [id number] [address] [place] [address] [place] Chloride [Moles/Vol] 104 mmol/L Normal 98-107 [facility] Comment on above: Order Comment: Speci men Type: BLOOD SPECIMEN Ordering Facility: [facility] Address: [address] [place] [address] Performed By: #### 1 1253-2 #### [facility] CLIA [id number] [address] [place] [address] [place] CO2 [Moles/Vol] 16 mmol/L Low 22-30 [facility] Comment on above: Order Comment: Speci men Type: BLOOD SPECIMEN Ordering Facility: [facility] Address: [address] [place] [address] Performed By: #### 1 1253-2 #### [facility] CLIA [id number] [address] [place] [address] [place] Creatinine [Mass/Vol] 4.96 mg/dL High 0.73-1.22 [facility] Comment on above: Order Comment: Speci men Type: BLOOD SPECIMEN Ordering Facility: [facility] Address: [address] [place] [address] Performed By: #### 1 1253-2 #### [facility] CLIA [id number] [address] [place] [address] [place] Creatinine and Glomerular filtration rate.predicted panel (S/P/Bld) 13 mL/min/1.73m??? Low >=60 [facility] Comment on above: Order Comment: Speci men Type: BLOOD SPECIMEN Ordering Facility: [facility] Address: [address] [place] [address] Result Comment: Candace mated Glomerular Filtration Rate [...] GFR. Performed By: #### 1 1253-2 #### [facility] CLIA [id number] [address] [place], [place] [address] [place] Glucose [Mass/Vol] 230 mg/dL High 74-99 [facility] Comment on above: Order Comment: Speci men Type: BLOOD SPECIMEN Ordering Facility: [facility] Address: [address] [place] [address] Result Comment: The [place] [employer] (ADA) provides guidance for cutoff [...] Standards of Medical Care in Diabetes 2016, [place] [employer]. Diabetes Care. 2016.39(Suppl 1). Performed By: #### 1 1253-2 #### [facility] CLIA [id number] [address] [place] [address] [place] Phosphate [Mass/Vol] 3.9 mg/dL Normal 2.7-4.8 [facility] Comment on above: Order Comment: Speci men Type: BLOOD SPECIMEN Ordering Facility: [facility] Address: [address] [place] [address] Performed By: #### 1 1253-2 #### [facility] CLIA [id number] [address] [place] [address] [place] Potassium [Moles/Vol] 4.6 mmol/L Normal 3.7-5.1 [facility] Comment on above: Order Comment: Speci men Type: BLOOD SPECIMEN Ordering Facility: [facility] Address: [address] [place] [address] Performed By: #### 1 1253-2 #### [facility] CLIA [id number] [address] [place] [address] [place] Sodium [Moles/Vol] 134 mmol/L Low 136-144 [facility] Comment on above: Order Comment: Speci men Type: BLOOD SPECIMEN Ordering Facility: [facility] Address: [address] [place] [address] Performed By: #### 1 1253-2 #### [facility] CLIA [id number] [address] [place] [address] Urea nitrogen [Mass/Vol] 65 mg/dL High 9-24 [facility] Comment on above: Order Comment: Gabriel martin Type: BLOOD SPECIMEN Ordering Facility: [facility] Address: [address] [place] [address] Performed By: #### 1 1253-2 #### [facility] CLIA [id number] [address] [place] [address] THERAPY NTon 01-28-2025 THERAPY NT HNO ID: [id number] Author: RICK JACOBS OT/Jose Luis Service: Occupational Therapy Author Type: Occupational Therapist Type: Therapy (PT/OT/Speech/Resp) Filed: 01/28/2025 13:22 Note Text: OCCUPATIONAL THERAPY MISSED VISIT SERVICE DATE: 01/28/2025 SERVICE TIME: 1310 ROOM: [place] [address] Patient not seen due to (Pt with actice d/c summary in chart). SIGNATURE: DINAH Waldron PATIENT NAME: Italo Burgos DATE: January 28, 2025 TIME: 1:22 PM Normal [facility] Tacrolimus Bld-mCncon 2024 Tacrolimus (Bld) [Mass/Vol] 17.3 ng/mL Normal 5.0-20.0 [facility] Comment on above: Order Comment: Gabriel martin Type: BLOOD SPECIMEN Ordering Facility: [facility] Address: [address] [place] [address] Result Comment: Eileen vidualized target levels for [...] i. Performed By: #### 1 1253-2 #### [facility] CLIA [id number] [address] [place] [address] [place] Anion gap in Serum or Plasma Ordered By: Yony Solis on 01-27-2025 Anion gap [Moles/Vol] 16 mmol/L High 5-15 [facility] BRIEF OP NOTon 01-27-2025 BRIEF OP NOT HNO ID: [id number] Author: ALTAF DE JESUS MD Service: Interventional Radiology Author Type: Resident Type: Brief Op Note Filed: 01/27/2025 08:56 Note Text: BRIEF OPERATIVE / PROCEDURE NOTE LOG ID: [id number] SURGERY/PROCEDURE DATE: 01/27/2025 INCISION/PROCEDURE START TIME: 8:35 AM INCISION CLOSE/PROCEDURE END TIME: SURGEON(S)/PROCEDURALIS T(S) AND INFORMATION SECURITY SYSTEMS INSTRUCTOR(S): Surgeons and Role: * Tenzin Daniel MD [...] January 27, 2025 TIME: 8:55 AM Normal [facility] BUN/creatinine ratioOrdered By: Yony Solis on 01-27-2025 Urea nitrogen/Creatinine [Mass ratio] 8.5 mg/mg Low 10-20 [facility] Bacteria Ur Culton 5 Bacteria identified Cx Nom (U) CULTURE, URINE: No growth (<100 CFU/ml) Normal [facility] Comment on above: Performed By: #### 6 30-4 ####[facility] [id number] [place] [address] [place] Basic Metabolic Profile (BMP )on 01-27-2025 BUN/CRE 8.5 RATIO Low 10-20 [facility] Comment on above: Performed By: #### L 500.2500, L100.0100 #### [facility] [address] [place], [address] Calcium [Mass/Vol] 8.2 mg/dL Normal 7.6-11.0 [facility] Comment on above: Performed By: #### L 500.2500, L100.0100 #### [facility] [address] [place], [address] Chloride [Moles/Vol] 94 mmol/L Low 98-108 [facility] Comment on above: Performed By: #### L 500.2500, L100.0100 #### [facility] [address] [place], [address] CO2 [Moles/Vol] 16.7 mmol/L Low 21.0-32.0 [facility] Comment on above: Performed By: #### L 500.2500, L100.0100 #### [facility] [address] [place], [address] Creatinine [Mass/Vol] 10.50 mg/dL Invalid Interpretation Code 0.70-1.20 [facility] Comment on above: Result Comment: Crit ical Result(s) Called at: 0222 by:??RUDY HAVEN TO NATE ALFRED Results read back by same. Performed By: #### L 500.2500, L100.0100 #### [facility] [address] [place], [address] ECRCL 8.41 ml/min Invalid Interpretation Code 50-250 [facility] Comment on above: Performed By: #### L 500.2500, L100.0100 #### [facility] [address] [place], [address] GAP 16 High 5-15 [facility] Comment on above: Performed By: #### L 500.2500, L100.0100 #### [facility] [address] [place], [address] GFR/1.73 sq M.predicted among non-blacks MDRD (S/P/Bld) [Vol rate/Area] 5 mL/min/{1.73_m2} Low >60 [facility] Comment on above: Result Comment: mL/m in/1.73m2 CKD-EPI Creatinine Equation (2020) Performed By: #### L 500.2500, L100.0100 #### [facility] [address] [place], [address] Glucose [Mass/Vol] 116 mg/dL High 70-99 [facility] Comment on above: Performed By: #### L 500.2500, L100.0100 #### [facility] [address] [place], [address] Potassium [Moles/Vol] 4.6 mmol/L Normal 3.3-5.1 [facility] Comment on above: Performed By: #### L 500.2500, L100.0100 #### [facility] [address] [place], [address] Sodium [Moles/Vol] 126 mmol/L Low 133-145 [facility] Comment on above: Performed By: #### L 500.2500, L100.0100 #### [facility] [address] [place], [address] Urea nitrogen [Mass/Vol] 90 mg/dL High 4-19 [facility] Comment on above: Performed By: #### L 500.2500, L100.0100 #### [facility] [address] [place], [address] BUN Normal 4-19 [facility] Comment on above: Result Comment: QUES TIONABLE RESULTS. REORDERED Performed By: #### L 500.2500 #### [facility] [address] [place], [address] BUN/CRE Normal 10-20 [facility] Comment on above: Result Comment: QUES TIONABLE RESULTS. REORDERED Performed By: #### L 500.2500 #### [facility] [address] [place], [address] Calcium Normal 7.6-11.0 [facility] Comment on above: Result Comment: QUES TIONABLE RESULTS. REORDERED Performed By: #### L 500.2500 #### [facility] [address] [place], [address] CL Normal 98-108 [facility] Comment on above: Result Comment: QUES TIONABLE RESULTS. REORDERED Performed By: #### L 500.2500 #### [facility] [address] [place], [address] CO2 Normal 21.0-32.0 [facility] Comment on above: Result Comment: QUES TIONABLE RESULTS. REORDERED Performed By: #### L 500.2500 #### [facility] [address] [place], [address] CREAT,SERUM Normal 0.70-1.20 [facility] Comment on above: Result Comment: QUES TIONABLE RESULTS. REORDERED Performed By: #### L 500.2500 #### [facility] [address] [place], [address] eGFR Normal >60 [facility] Comment on above: Result Comment: QUES TIONABLE RESULTS. REORDERED Performed By: #### L 500.2500 #### [facility] [address] [place], [address] GAP Normal 5-15 [facility] Comment on above: Result Comment: QUES TIONABLE RESULTS. REORDERED Performed By: #### L 500.2500 #### [facility] [address] [place], [address] GLU Normal 70-99 [facility] Comment on above: Result Comment: QUES TIONABLE RESULTS. REORDERED Performed By: #### L 500.2500 #### [facility] [address] [place], [address] Potassium Normal 3.3-5.1 [facility] Comment on above: Result Comment: QUES TIONABLE RESULTS. REORDERED Performed By: #### L 500.2500 #### [facility] [address] [place], [address] Basic Metabolic Profile (BMP) Normal 133-145 [facility] Comment on above: Result Comment: QUES TIONABLE RESULTS. REORDERED Performed By: #### L 500.2500 #### [facility] [address] [place], [address] Basic metabolic 2000 panelon 01-27-2025 Anion gap [Moles/Vol] 14 mmol/L Normal 8-15 [facility] Comment on above: Order Comment: Speci men Type: BLOOD SPECIMEN Ordering Facility: [facility] Address: [address] [place] [address] Performed By: #### 2 4321-2 #### [facility] CLIA [id number] [address] [place] [address] [place] Calcium [Mass/Vol] 8.4 mg/dL Low 8.5-10.2 [facility] Comment on above: Order Comment: Speci men Type: BLOOD SPECIMEN Ordering Facility: [facility] Address: [facility] [place] [address] Performed By: #### 2 4321-2 #### [facility] CLIA [id number] [address] [place], [place] [address] [place] Chloride [Moles/Vol] 99 mmol/L Normal 98-107 [facility] Comment on above: Order Comment: Speci men Type: BLOOD SPECIMEN Ordering Facility: [facility] Address: [address] [place] [address] Performed By: #### 2 4321-2 #### [facility] CLIA [id number] [address] [place] [address] [place] CO2 [Moles/Vol] 16 mmol/L Low 22-30 [facility] Comment on above: Order Comment: Speci men Type: BLOOD SPECIMEN Ordering Facility: [facility] Address: [address] [place] [address] Performed By: #### 2 4321-2 #### [facility] CLIA [id number] [address] [place] [address] [place] Creatinine [Mass/Vol] 7.42 mg/dL High 0.73-1.22 [facility] Comment on above: Order Comment: Speci men Type: BLOOD SPECIMEN Ordering Facility: [facility] Address: [address] [place] [address] Performed By: #### 2 4321-2 #### [facility] CLIA [id number] [address] [place] [address] [place] Creatinine and Glomerular filtration rate.predicted panel (S/P/Bld) 8 mL/min/1.73m??? Low >=60 [facility] Comment on above: Order Comment: Speci men Type: BLOOD SPECIMEN Ordering Facility: [facility] Address: [address] [place] [address] Result Comment: Candace mated Glomerular Filtration Rate [...] GFR. Performed By: #### 2 4321-2 #### [facility] CLIA [id number] [address] [place] [address] [place] Glucose [Mass/Vol] 191 mg/dL High 74-99 [facility] Comment on above: Order Comment: Speci men Type: BLOOD SPECIMEN Ordering Facility: [facility] Address: [address] [place] [address] Result Comment: The [place] [employer] (ADA) provides guidance for cutoff [...] Standards of Medical Care in Diabetes 2016, [place] [employer]. Diabetes Care. 2016.39(Suppl 1). Performed By: #### 2 4321-2 #### [facility] CLIA [id number] [address] [place] [address] [place] Potassium [Moles/Vol] 4.7 mmol/L Normal 3.7-5.1 [facility] Comment on above: Order Comment: Gabriel martin Type: BLOOD SPECIMEN Ordering Facility: [facility] Address: [address] [place] [address] Performed By: #### 2 4321-2 #### [facility] CLIA [id number] [address] [place] [address] [place] Sodium [Moles/Vol] 129 mmol/L Low 136-144 [facility] Comment on above: Order Comment: Gabriel men Type: BLOOD SPECIMEN Ordering Facility: [facility] Address: [address] [place] [address] Performed By: #### 2 4321-2 #### [facility] CLIA [id number] [address] [place] [address] [place] Urea nitrogen [Mass/Vol] 82 mg/dL High 9-24 [facility] Comment on above: Order Comment: Speci men Type: BLOOD SPECIMEN Ordering Facility: [facility] Address: [address] [place] [address] Performed By: #### 2 4321-2 #### [facility] CLIA [id number] [address] [place] [address] [place] Bedside Glucoseon 01-27-2025 FINGERSTICK GLU 127 mg/dL High 74-106 [facility] Comment on above: Result Comment: RACHEL GEMENT OF PATIENT CARE PER NURSING PROTOCOL Performed By: #### L 501.080 #### [facility] [address] [place], [address] FINGERSTICK GLU 128 mg/dL High 74-106 [facility] Comment on above: Result Comment: RACHEL GEMENT OF PATIENT CARE PER NURSING PROTOCOL Performed By: #### L 501.080 #### [facility] [address] [place], [address] FINGERSTICK GLU 168 mg/dL High 74-106 [facility] Comment on above: Result Comment: RACHEL GEMENT OF PATIENT CARE PER NURSING PROTOCOL Performed By: #### L 500.2500 #### [facility] [address] [place], [address] FINGER[place]ICK GLU 145 mg/dL High 74-106 [facility] Comment on above: Result Comment: RACHEL GEMENT OF PATIENT CARE PER NURSING PROTOCOL Performed By: #### L 501.080 #### [facility] [address] [place], [address] FINGERSTICK GLU 200 mg/dL High 74-106 [facility] Comment on above: Result Comment: RACHEL GEMENT OF PATIENT CARE PER NURSING PROTOCOL Performed By: #### L 501.080 #### [facility] [address] [place], [address] Beta-Hydroxbytyrateon 2024 BETA-HYDROXYBUT 0.0 mmol/L Normal 0.0-0.3 [facility] Comment on above: Performed By: #### L 500.2500, L100.0100 #### [facility] [address] [place], [address] Beta-hydroxybutyrateOrdered By: Yony Solis on 01-27-2025 Beta hydroxybutyrate [Mass/Vol] 0.0 mmol/L 0.0-0.3 [facility] CBC panel Auto (Bld)on 01-27 Erythrocyte distribution width (RBC) [Ratio] 11.6 % Normal 11.5-15.0 [facility] Comment on above: Order Comment: Speci men Type: SWAB Ordering Facility: [facility] Address: [address] [place] [address] Performed By: #### S APCR #### [facility] CLIA [id number] [address] [place] [address] [place] Hematocrit (Bld) [Volume fraction] 33.5 % Low 39.0-51.0 [facility] Comment on above: Order Comment: Speci men Type: SWAB Ordering Facility: [facility] Address: [address] [place] [address] Performed By: #### S APCR #### [facility] CLIA [id number] [address] [place] [address] [place] Hemoglobin (Bld) [Mass/Vol] 11.9 g/dL Low 13.0-17.0 [facility] Comment on above: Order Comment: Speci men Type: SWAB Ordering Facility: [facility] Address: [address] [place] [address] Performed By: #### S APCR #### [facility] CLIA [id number] [address] [place] [address] [place] MCH (RBC) [Entitic mass] 30.8 pg Normal 26.0-34.0 [facility] Comment on above: Order Comment: Speci men Type: SWAB Ordering Facility: [facility] Address: [address] [place] [address] Performed By: #### S APCR #### [facility] CLIA [id number] [address] [place] [address] [place] MCHC (RBC) [Mass/Vol] 35.5 g/dL Normal 30.5-36.0 [facility] Comment on above: Order Comment: Speci men Type: SWAB Ordering Facility: [facility] Address: [address] [place] [address] Performed By: #### S APCR #### [facility] CLIA [id number] [address] [place] [address] [place] MCV (RBC) [Entitic vol] 86.8 fL Normal 80.0-100.0 [facility] Comment on above: Order Comment: Speci men Type: SWAB Ordering Facility: [facility] Address: [address] [place] [address] Performed By: #### S APCR #### [facility] CLIA [id number] [address] [place] [address] [place] Nucleated RBC (Bld) [#/Vol] 10*3/uL Normal <0.01 [facility] Comment on above: Order Comment: Speci men Type: SWAB Ordering Facility: [facility] Address: [address] [place] [address] Performed By: #### S APCR #### [facility] CLIA [id number] [address] [place] [address] [place] Platelet mean volume (Bld) [Entitic vol] 9.7 fL Normal 9.0-12.7 [facility] Comment on above: Order Comment: Speci men Type: SWAB Ordering Facility: [facility] Address: [address] [place] [address] Performed By: #### S APCR #### [facility] CLIA [id number] [address] [place] [address] [place] Platelets (Bld) [#/Vol] 167 10*3/uL Normal 150-400 [facility] Comment on above: Order Comment: Speci men Type: SWAB Ordering Facility: [facility] Address: [address] [place] [address] Performed By: #### S APCR #### [facility] CLIA [id number] [address] [place] [address] [place] RBC (Bld) [#/Vol] 3.86 10*6/uL Low 4.20-6.00 [facility] Comment on above: Order Comment: Speci men Type: SWAB Ordering Facility: [facility] Address: [address] [place] [address] Performed By: #### S APCR #### [facility] CLIA [id number] [address] [place] [address] [place] WBC (Bld) [#/Vol] 9.72 10*3/uL Normal 3.70-11.00 [facility] Comment on above: Order Comment: Speci men Type: SWAB Ordering Facility: [facility] Address: [address] [place] [address] Performed By: #### S APCR #### [facility] CLIA [id number] [address] [place] [address] [place] CNPKaley 01-27-2025 CNPN Telephone (Angio) ITALO BURGOS ([id number]) 1970 M Date Time Provider Department 01/27/25 [...] for Visit: IR Inpatient Tube Appointment Request [0258] Prescriptions as of 01/28/2025 - carvedilol (COREG) [...] 3 mg/actuation nasal spray (BAQSIMI) Use 1 [place] in the nose as needed for low [...] (HC*03/23/2021 Immunodeficienc (more content not included)... [facility] ([id number]) 1970 M Date Time Provider Department 01/27/25 AMANDA HAYES TXCTGL During your visit today, we recorded the following information about you: Amanda Hayes, DYE OPERATOR 01/27/2025 1:58 PM Signed ADDY attempted to call pt regarding the possibility of being him homeless. ADDY was unable to leave a message. SW will attempt to contact pt at a later time. SARA [employer] Model Allergies As of Date: 01/27/2025 (No Known [...] in pm - Blood-Glucose Meter,Continuous (DEXCOM G6 ATTENDANT CHILD ACTIVITY) misc 1 Each continuous. - Blood-Glucose Sensor [...] Units subcutaneously daily at bedtime. - Insulin [place], Disposable, (BD ULTRA-FINE SANDRA PEN NEEDLE) 32 [...] 3 mg/actuation nasal spray (BAQSIMI) Use 1 [place] in the nose as needed for low [...] Noted Resol (more content not included)... Normal [facility] CONSULTon 01-27-2025 CONSULT HNO ID: [id number] Author: CHELSEA RYAN MD Service: Nephrology Author [...] than fatigue Noted plans for transfer to [facility] Suspect that he will have a post-obstructive diuresis, so will need to monitor UOP and lytes closely- check renal function this PM Will need definitive management of obstructive nephrolithiasis per urology Agree with short term hold of MMF while cultures are resulted Rest of plan and IS recs per SUSAN note Chelsea Ryan MD Department of Kid[facility] [place] ICU NEPHROLOGY CONSULT NOTE Patient Name: Italo [...] eye, RLE weakness, depression, GERD, HLD, UTI, [place], DKA, CAD, renal calculi, hematuria, LUANNE, cholecystectomy, [...] Bronchitis Chronic kidney failure, stage 4 (severe) ([facility]) 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 Normal [facility] CONSULT HNO ID: [id number] Author: DYLAN URIBE MD Service: Urology Author Type: Resident Type: Consults Filed: 01/27/2025 06:42 Note Text: [facility] UROLOGY CONSULT NOTE [...] Dr. Cummings. Dylan Uribe MD Urology Resident [facility] [place] Pager [phone] For weekend or after hours issues please [...] SHUNT FOR DIALYSIS Right 08/08/2018 Done at [facility] by Satish Phan MD CHOLECYSTECTOMY 1998 Cholecystectomy [...] 90 capsuleRfl: 11 Blood-Glucose Meter,Continuous (DEXCOM G6 ATTENDANT CHILD ACTIVITY) misc1 Each continuous.Disp: 1 EachRfl: 0 Blood-Glucose Sensor (DEXCOM G6 SENSOR) devi1 Each continuous.Disp: 9 EachRfl: 3 Blood-Glucose Transmitter (DEXCOM G6 TRANSMITTER) devi1 Each continuous.Disp: 1 EachRfl: 0 carvedilol (COREG) 25 mg tabletTake 1 tablet by mouth two times a day.Disp: 60 tabletRfl: 11 losartan (COZAAR) 25 mg tabletTake 2 tab (more content not included)... Normal [facility] Carbon dioxide, total [Moles /volume] in Central venous bloodOrdered By: Yony Solis on 01-27-2025 CO2 [Moles/Vol] 16.7 mmol/L Low 21.0-32.0 [facility] Chloride assayOrdered By: Aldair Solis on 01-27-2025 Chloride [Moles/Vol] 94 mmol/L Low 98-108 [facility] Comprehensive metabolic 2000 panelon 01-27-2025 Albumin [Mass/Vol] 2.6 g/dL Low 3.9-4.9 [facility] Comment on above: Order Comment: Speci men Type: SWAB Ordering Facility: [facility] Address: [address] [place] [address] Performed By: #### S APCR #### [facility] CLIA [id number] [address] [place] [address] [place] ALP [Catalytic activity/Vol] 100 U/L Normal 38-113 [facility] Comment on above: Order Comment: Speci men Type: SWAB Ordering Facility: [facility] Address: [address] [place] [address] Performed By: #### S APCR #### [facility] CLIA [id number] [address] [place] [address] [place] ALT [Catalytic activity/Vol] 11 U/L Normal 10-54 [facility] Comment on above: Order Comment: Speci men Type: SWAB Ordering Facility: [facility] Address: [address] [place] [address] Performed By: #### S APCR #### [facility] CLIA [id number] [address] [place] [address] [place] Anion gap [Moles/Vol] 16 mmol/L High 8-15 [facility] Comment on above: Order Comment: Speci men Type: SWAB Ordering Facility: [facility] Address: [address] [place] [address] Performed By: #### S APCR #### [facility] CLIA [id number] [address] [place] [address] [place] AST [Catalytic activity/Vol] 13 U/L Low 14-40 [facility] Comment on above: Order Comment: Speci men Type: SWAB Ordering Facility: [facility] Address: [address] [place] [address] Result Comment: Resu lts may be falsely increased due to interference from hemolysis. Suggest reorder as clinically indicated. Performed By: #### S APCR #### [facility] CLIA [id number] [address] [place] [address] [place] Bilirubin [Mass/Vol] 0.5 mg/dL Normal 0.2-1.3 [facility] Comment on above: Order Comment: Speci men Type: SWAB Ordering Facility: [facility] Address: [address] [place] [address] Performed By: #### S APCR #### [facility] CLIA [id number] [address] [place] [address] [place] Calcium [Mass/Vol] 8.1 mg/dL Low 8.5-10.2 [facility] Comment on above: Order Comment: Speci men Type: SWAB Ordering Facility: [facility] Address: [address] [place] [address] Performed By: #### S APCR #### [facility] CLIA [id number] [address] [place] [address] [place] Chloride [Moles/Vol] 94 mmol/L Low 98-107 [facility] Comment on above: Order Comment: Speci men Type: SWAB Ordering Facility: [facility] Address: [address] [place] [address] Performed By: #### S APCR #### [facility] CLIA [id number] [address] [place] [address] [place] CO2 [Moles/Vol] 16 mmol/L Low 22-30 [facility] Comment on above: Order Comment: Speci men Type: SWAB Ordering Facility: [facility] Address: [address] [place] [address] Performed By: #### S APCR #### [facility] CLIA [id number] [address] [place] [address] [place] Creatinine [Mass/Vol] 9.90 mg/dL High 0.73-1.22 [facility] Comment on above: Order Comment: Speci men Type: SWAB Ordering Facility: [facility] Address: [address] [place] [address] Performed By: #### S APCR #### [facility] CLIA [id number] [address] [place] [address] [place] Creatinine and Glomerular filtration rate.predicted panel (S/P/Bld) 6 mL/min/1.73m??? Low >=60 [facility] Comment on above: Order Comment: Speci men Type: SWAB Ordering Facility: [facility] Address: [address] [place] [address] Result Comment: Candace mated Glomerular Filtration Rate [...] GFR. Performed By: #### S APCR #### [facility] CLIA [id number] [address] [place] [address] [place] Glucose [Mass/Vol] 145 mg/dL High 74-99 [facility] Comment on above: Order Comment: Speci men Type: SWAB Ordering Facility: [facility] Address: [address] [place] [address] Result Comment: The [place] [employer] (ADA) provides guidance for cutoff [...] Standards of Medical Care in Diabetes 2016, [place] [employer]. Diabetes Care. 2016.39(Suppl 1). Performed By: #### S APCR #### [facility] CLIA [id number] [address] [place] [address] [place] Potassium [Moles/Vol] 4.8 mmol/L Normal 3.7-5.1 [facility] Comment on above: Order Comment: Speci men Type: SWAB Ordering Facility: [facility] Address: [address] [place] [address] Performed By: #### S APCR #### [facility] CLIA [id number] [address] [place] [address] [place] Protein [Mass/Vol] 5.0 g/dL Low 6.3-8.0 [facility] Comment on above: Order Comment: Speci men Type: SWAB Ordering Facility: [facility] Address: [address] [place] [address] Performed By: #### S APCR #### [facility] CLIA [id number] [address] [place] [address] [place] Sodium [Moles/Vol] 126 mmol/L Low 136-144 [facility] Comment on above: Order Comment: Speci men Type: SWAB Ordering Facility: [facility] Address: [address] [place] [address] Performed By: #### S APCR #### [facility] CLIA [id number] [address] [place] [address] [place] Urea nitrogen [Mass/Vol] 83 mg/dL High 9-24 [facility] Comment on above: Order Comment: Speci men Type: SWAB Ordering Facility: [facility] Address: [address] [place] [address] Performed By: #### S APCR #### [facility] CLIA [id number] [address] [place] [address] [place] ECG COMPLETEon 01-27-2025 ECG COMPLETE Ventricular Rate : 7 0 BPM Atrial Rate : 70 BPM P-R Interval : 206 ms QRS Duration : 116 ms Q-T Interval : 422 ms QTC Calculation(Bazett) : 455 ms Calculated P [place] : 23 degrees Calculated R [place] : -32 degrees Calculated T [place] : 8 degrees SINUS RHYTHM WITH OCCASIONAL PREMATURE VENTRICULAR COMPLEXES LEFT AXIS DEVIATION ANTEROSEPTAL MYOCARDIAL INFARCTION , AGE UNDETERMINED ABNORMAL ECG Confirmed by MD RICHTER HEBA ([id number]) on 02/22/2025 10:43:13 AM NAME : ITALO BURGOS PID : [id number] : 1970 Gender : Male Race : ORD : [id number] Procedure Date : Jan 27 2025 06:15:13 Edit Date : Feb 22 2025 10:43:15 Diagnosis: SINUS RHYTHM WITH OCCASIONAL PREMATURE VENTRICULAR COMPLEXES LEFT AXIS DEVIATION ANTEROSEPTAL MYOCARDIAL INFARCTION , AGE UNDETERMINED ABNORMAL ECG Confirmed by MD RICHTER HEBA ([id number]) on 02/22/2025 10:43:13 AM Test Reason : Pre-OP Location : 35 : [place] [address] Overread By : MD RICHTER HEBA Edited By : MD RICHTER HEBA Referred By : YONY SOLIS Acquired by : DIVYA GONSALEZ [facility] Glomerular filtration rate ( GFR) estimation/1.73 sq m using serum, plasma, or whole bOrdered By: Yony Solis on 01-27-2025 GFR/1.73 sq M.predicted among non-blacks MDRD (S/P/Bld) [Vol rate/Area] 5 mL/min/{1.73_m2} Low >60 [facility] Comment on above: mL/min/1.73m2 CKD-EP I Creatinine Equation (2020) Glucose measurement at [facility] deOrdered By: Yony Solis on 01-27-2025 Glucose [Mass/Vol] 127 mg/dL High 74-106 [facility] Comment on above: MANAGEMENT OF PATIEN T CARE PER NURSING PROTOCOL Glucose [Mass/Vol] 128 mg/dL High 74-106 [facility] Comment on above: MANAGEMENT OF PATIEN T CARE PER NURSING PROTOCOL HISTORY PHYSICALon HISTORY PHYSICAL HNO ID: [id number] Author: KATHIA SANTIAGO MD Service: General Internal Medicine Author Type: Resident Type: H&P Filed: 01/27/2025 18:45 Note Text: Attestation signed by Kathia Santiago MD at 01/27/2025 6:45 PM (Updated) I have seen the patient face to face and reviewed the history and physical examination obtained and documented by the resident/ fellow/ physician computing systems mechanic. I personally participated in the de anda [...] Gaston MD NIGHT AND WEEKEND COVERAGE: [facility] COVERAGE: Days: [phone], please page Joel Negro Tavares for patient [...] in the right transplanted kidney ureter causing owpofobc-jn-aljift hydroureteronephrosis, perinephric stranding, and a thickened bladder wall suggestive of cystitis. Transferred to [facility] for higher level care, urology placed [...] Diagnosis Date Acute diastolic (congestive) heart failure ([facility]) Bronchitis Chronic kidney failure, stage 4 (severe) ([facility]) 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 ([facility]) 12/16/2018 Depression Detached retina DM type 2, goal HbA1c < 7% ([facility]) Erectile dysfunction, unspecified erectile dysfunction type ESRD (end stage renal disease) ([facility]) GERD (gastroesophageal reflux disease) Hyperlipidemia Kidney replaced by transplant ([facility]) Kidney stones ULANNE (obstructive sleep apnea) PNA (pneumonia) Proliferative retinopathy 02/10/2019 PTE (post-transplant erythrocytosis) Snoring Unspecified essential hypertension Vitamin D deficiency Vitamin D deficiency PAST SURGICAL HISTORY Procedure Laterality Date AMPUTATION TOE,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 08/08/2018 Done at [facility] by Satish Phan MD CHOLECYSTECTOMY 1998 Cholecystectomy COLONOSCOPY 12/04/2018 COLONOSCOPY SCREENING 04/01/2024 CYSTO W/COMPLEX REMOVAL STONE AND STENT 1999 E[facility]/04[facility]ICIES [facility]J 04/01/2024 PAST [...] Former Type (more content not included)... Normal [facility] HISTORY PHYSICAL HNO ID: [id number] Author: TENZIN DANIEL MD Service: Interventional Radiology [...] 27, 2025 TIME: 7:58 AM PAGER: Normal [facility] HISTORY PHYSICAL HNO ID: [id number] Author: RAY PINA MD Service: Critical Care Author Type: Physician Type: H&P Filed: 01/27/2025 08:58 Note Text: MICU: HISTORY AND PHYSICAL Italo Burgos [id number] ADMISSION DATE: 01/27/2025 LENGTH OF STAY: 0 MICU DAY: PRIMARY CARE PHYSICIAN: Zaida Gaston MD Subjective Chief Complaint ILDA History of Present Illness Italo Burgos is a 54 year old male with ILDA from [facility]. PMH s/f T2DM c/b ESRD s/p DDRT 03/2021 (envarsus, MMF, pred) with graft CKD (baseline cr 1.4-1.6), HTN, GERD, MDD, L foot infections s/p toe amputations. Per OSH and records, CT A/P showed 1cm obstructing stone in transplanted R kidney with uxlyvfkq-ge-bmwpal upstream hydroureteronephrosis; severely thickened urinary bladder wall [...] illnesses. Prior to arrival to [facility]: At [facility], c/f DKA, ILDA. DKA ruled out [...] Diagnosis Date Acute diastolic (congestive) heart failure ([facility]) Bronchitis Chronic kidney failure, stage 4 (severe) ([facility]) 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 ([facility]) 12/16/2018 Depression Detached retina DM type 2, goal HbA1c < 7% ([facility]) Erectile dysfunction, unspecified erectile dysfunction type ESRD (end stage renal disease) ([facility]) GERD (gastroesophageal reflux disease) Hyperlipidemia Kidney replaced by transplant ([facility]) Kidney stones LUANNE (obstructive sleep apnea) PNA (pneumonia) Proliferative retinopathy 02/10/2019 PTE (post-transplant erythrocytosis) Snoring Unspecified essential hypertension Vitamin D deficiency Vitamin D deficiency Past Surgical History PAST SURGICAL HISTORY Procedure Laterality Date AMPUTATION TOE,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 08/08/2018 Done at [facility] by Satish Phan MD CHOLECYSTECTOMY 1998 Cholecystectomy COLONOSCOPY 12/04/2018 COLONOSCOPY SCREENING 04/01/2024 CYSTO W/COMPLEX REMOVAL STONE AND STENT 1999 EGD 12/04/2018 EGD W/O [facility] SPEC VARICIES INJ 04/01/2024 PAST SURGICAL HISTORY [...] Exam BP (more content not included)... Normal [facility] IR NEPHROSTOMY TUBE PLACEon 01-27-[address] * * *Final Report* * * DATE OF EXAM: Jan 27 2025 8:53AM [facility] 0779 - IR NEPHROSTOMY TUBE PLACE [...] was performed. Genitourinary catheter placed: 10 F [employer] nephrostomy Findings: Severe hydronephrosis on ultrasound [...] The procedure was performed by the: the behavioral assistant, and the attending radiologist was present for all critical and de anda portions of the procedure, and was immediately available to furnish services during the entire procedure. The attending radiologist performed the (more content not included)... Normal [facility] Magnesium SerPl-mCncon 01-27 Magnesium [Mass/Vol] 1.8 mg/dL Normal 1.7-2.3 [facility] Comment on above: Order Comment: Speci men Type: SWAB Ordering Facility: [facility] Address: [address] [place] [address] Performed By: #### S APCR #### [facility] CLIA [id number] [address] [place] [address] [place] [address] [place] NURSING PROGon 01-27-2025 NURSING PROG HNO ID: [id number] Author: WILLIAM THIBODEAUX, ANDER Service: Nursing Author Type: Registered Nurse Type: Nursing Progress Note Filed: 01/27/2025 19:35 Note Text: Other: Blood pressure 89/41, patient denies dizziness/chest pain. notified. 500 cc bolus given. Repeat blood pressure 107/63. Normal [facility] PT EDon 01-27-2025 PT ED HNO ID: [id number] Author: NELI GUTIERREZ RN Service: Nursing Author [...] RN In Department: HOSP MAIN G062 Normal [facility] PT panel Coag (PPP)on 2024 INR Coag (PPP) [Relative time] 1.0 {INR} Normal 0.9-1.3 [facility] Comment on above: Order Comment: Speci men Type: BLOOD SPECIMEN Ordering Facility: [facility] Address: [address] [place] [address] Result Comment: Kenzie min K Antagonist (VKA) Therapeutic Range: INR 2 to 3 (Target INR of 2.5) Note: For patients treated with VKA drugs, such as warfarin, the [employer] [employer] 2012 Guideline recommends [...] Chest 2012, 141:7S-47S Aline RA, et al. [facility] 2017, 70: 252-289 Performed By: #### 1 1253-2 #### [facility] CLIA [id number] [address] [place] [address] [place] PT Coag (PPP) [Time] 11.0 s Normal 9.7-13.0 [facility] Comment on above: Order Comment: Speci men Type: BLOOD SPECIMEN Ordering Facility: [facility] Address: [address] [place] [address] Performed By: #### 1 1253-2 #### [facility] CLIA [id number] [address] [place] [address] [place] Phosphate SerPl-mCncon 01-27 Phosphate [Mass/Vol] 5.5 mg/dL High 2.7-4.8 [facility] Comment on above: Order Comment: Speci men Type: SWAB Ordering Facility: [facility] Address: [address] [place] [address] Performed By: #### S APCR #### [facility] CLIA [id number] [address] [place] [address] [place] Potassium measurement (mass/ volume)Ordered By: Yony Solis on 01-27-2025 Potassium (Unsp spec) [Mass/Vol] 4.6 mmol/L 3.3-5.1 [facility] STAPHYLOCOCCUS AUREUS AND MR SA SCREEN, PCR, NASALon 01-27-2025 S. aureus and MRSA panel CARMEN+probe (Nose) Not detected Normal Not Detected [facility] Comment on above: Order Comment: Speci men Type: SWAB Ordering Facility: [facility] Address: [address] [place] [address] Performed By: #### S APCR #### [facility] CLIA [id number] [address] [place], [place] [address] [place] [address] [place] Serum creatinine measurement (mass/volume)Ordered By: Yony Solis on 01-27-2025 Creatinine [Mass/Vol] 10.50 mg/dL High 0.70-1.[address] [facility] Comment on above: Critical Result(s) C alled at: 0222 by: RUDY ALFRED Results read back by same. Serum glucose measurement (m ass/volume)Ordered By: Yony Solis on 01-27-2025 Glucose [Mass/Vol] 116 mg/dL High 70-99 [facility] Serum or plasma calcium regi urement (mass/volume)Ordered By: Yony Solis on 01-27-2025 Calcium [Mass/Vol] 8.2 mg/dL 7.6-11.0 [facility] Serum or plasma urea nitroge n measurement (mass/volume)Ordered By: Yony Solis on 01-27-2025 Urea nitrogen [Mass/Vol] 90 mg/dL High 4-19 [facility] Sodium levelOrdered By: Yony Solis on 01-27-2025 Sodium [Moles/Vol] 126 mmol/L Low 133-145 [facility] TYPE + SCREENon 01-27-2025 ABO A Normal [facility] Comment on above: Order Comment: Speci men Type: BLOOD SPECIMEN Ordering Facility: [facility] Address: [address] [place] [address] Performed By: #### T SCR #### [facility] [place] [id number] [address] [place] [address] [place] Rh Nom (Bld) Positive Normal [facility] Comment on above: Order Comment: Speci men Type: BLOOD SPECIMEN Ordering Facility: [facility] Address: [address] [place] [address] Performed By: #### T SCR #### [facility] CLIA [id number] [address] [place], [place] [address] [place] [address] [place] TYPE AND SCREEN EXPIRATION 01/30/2025 23:59 Normal [facility] Comment on above: Order Comment: Speci men Type: BLOOD SPECIMEN Ordering Facility: [facility] Address: [address] [place] [address] Performed By: #### T SCR #### [facility] CLIA [id number] [address] [place] [address] [place] Tacrolimus Bld-mCncon 2024 Tacrolimus (Bld) [Mass/Vol] 13.4 ng/mL Normal 5.0-20.0 [facility] Comment on above: Order Comment: Gabriel martin Type: SWAB Ordering Facility: [facility] Address: [address] [place] [address] Result Comment: Eileen vidualized target levels for [...] i. Performed By: #### S APCR #### [facility] CLIA [id number] [address] [place] [address] [place] Urinalysis complete panel (U )on 01-27-2025 Bacteria LM.HPF (Urine sed) [#/Area] Negative Normal Negative [facility] Comment on above: Order Comment: Gabriel martin Type: BLOOD SPECIMEN Ordering Facility: [facility] Address: [address] [place] [address] Performed By: #### 1 1253-2 #### [facility] CLIA [id number] [address] [place] [address] [place] Bilirubin Ql (U) 2+ Abnormal Negative [facility] Comment on above: Order Comment: Gabriel martin Type: BLOOD SPECIMEN Ordering Facility: [facility] Address: [address] [place] [address] Result Comment: Sugg est correlation with clinical findings and serum bilirubin if clinically indicated. Performed By: #### 1 1253-2 #### [facility] CLIA [id number] [facility] [address] [address] [place] Clarity (Unsp spec) Turbid Abnormal Clear [facility] Comment on above: Order Comment: Speci men Type: BLOOD SPECIMEN Ordering Facility: [facility] Address: [address] [place], [place] [address] Performed By: #### 1 1253-2 #### [facility] CLIA [id number] [address] [place], [place] [address] [place] Color (U) Red Abnormal Yellow [facility] Comment on above: Order Comment: Speci men Type: BLOOD SPECIMEN Ordering Facility: [facility] Address: [address] [place] [address] Performed By: #### 1 1253-2 #### [facility] CLIA [id number] [address] [place] [address] [place] Epithelial cells LM.HPF (Urine sed) [#/Area] None Seen Normal [facility] Comment on above: Order Comment: Speci men Type: BLOOD SPECIMEN Ordering Facility: [facility] Address: [address] [place] [address] Performed By: #### 1 1253-2 #### [facility] CLIA [id number] [address] [place] [address] [place] Glucose Test strip (U) [Mass/Vol] Negative Normal Negative [facility] Comment on above: Order Comment: Speci men Type: BLOOD SPECIMEN Ordering Facility: [facility] Address: [address] [place], [place] [address] Performed By: #### 1 1253-2 #### [facility] CLIA [id number] [address] [place], [place] [address] [place] Hemoglobin Ql (U) 3+ Abnormal Negative [facility] Comment on above: Order Comment: Speci men Type: BLOOD SPECIMEN Ordering Facility: [facility] Address: [address] [place] [address] Performed By: #### 1 1253-2 #### [facility] CLIA [id number] [address] [place] [address] [place] Hyaline casts (Urine sed) [#/Area] 0 /[LPF] Normal 0 /LPF [facility] Comment on above: Order Comment: Speci men Type: BLOOD SPECIMEN Ordering Facility: [facility] Address: [address] [place] [address] Performed By: #### 1 1253-2 #### [facility] CLIA [id number] [address] [place] [address] [place] Ketones Ql (U) Negative Normal Negative [facility] Comment on above: Order Comment: Speci men Type: BLOOD SPECIMEN Ordering Facility: [facility] Address: [address] [place] [address] Performed By: #### 1 1253-2 #### [facility] CLIA [id number] [address] [place] [address] [place] Leukocyte esterase Test strip Ql (U) 2+ Abnormal Negative [facility] Comment on above: Order Comment: Speci men Type: BLOOD SPECIMEN Ordering Facility: [facility] Address: [address] [place] [address] Performed By: #### 1 1253-2 #### [facility] CLIA [id number] [address] [place] [address] [place] Nitrite Ql (U) Positive Abnormal Negative [facility] Comment on above: Order Comment: Speci men Type: BLOOD SPECIMEN Ordering Facility: [facility] Address: [address] [place] [address] Performed By: #### 1 1253-2 #### [facility] CLIA [id number] [address] [place] [address] [place] pH (U) 5.0 [pH] Normal <8.5 [facility] Comment on above: Order Comment: Speci men Type: BLOOD SPECIMEN Ordering Facility: [facility] Address: [address] [place] [address] Performed By: #### 1 1253-2 #### [facility] CLIA [id number] [address] [place] [address] [place] Protein (U) [Mass/Vol] 3+ Abnormal Negative [facility] Comment on above: Order Comment: Speci men Type: BLOOD SPECIMEN Ordering Facility: [facility] Address: [address] [place] [address] Performed By: #### 1 1253-2 #### [facility] CLIA [id number] [address] [place] [address] [place] RBC LM.HPF (Urine sed) [#/Area] /[HPF] Abnormal 0-2 /HPF [facility] Comment on above: Order Comment: Speci men Type: BLOOD SPECIMEN Ordering Facility: [facility] Address: [address] [place] [address] Performed By: #### 1 1253-2 #### [facility] CLIA [id number] [address] [place] [address] [place] Specific gravity (U) [Rel density] 1.017 Normal 1.005-1.030 [facility] Comment on above: Order Comment: Speci men Type: BLOOD SPECIMEN Ordering Facility: [facility] Address: [address] [place] [address] Performed By: #### 1 1253-2 #### [facility] CLIA [id number] [address] [place] [address] [place] Urobilinogen Ql (U) 0.2 EU/dL Normal 0.2-1.0 EU/dL [facility] Comment on above: Order Comment: Speci men Type: BLOOD SPECIMEN Ordering Facility: [facility] Address: [address] [place] [address] Performed By: #### 1 1253-2 #### [facility] CLIA [id number] [address] [place] [address] [place] WBC LM.HPF (Urine sed) [#/Area] 0-5 /HPF Normal 0-5 /HPF [facility] Comment on above: Order Comment: Speci men Type: BLOOD SPECIMEN Ordering Facility: [facility] Address: [address] [place] [address] Performed By: #### 1 1253-2 #### [facility] CLIA [id number] [address] [place] [address] [place] Urine Cultureon 01-27-2025 URC Culture exhibits no growth. Normal [facility] Comment on above: Performed By: #### L 500.2500, L100.0100 #### [facility] [address] [place] [address]. [place], [place], [id number] aPTT PPPon 01-27-2025 aPTT Coag (PPP) [Time] 27.0 s Normal 23.0-32.4 [facility] Comment on above: Order Comment: Speci men Type: BLOOD SPECIMEN Ordering Facility: [facility] Address: [address] [place] [address] Performed By: #### 1 1253-2 #### [facility] [place] [id number] [address] [place] [address] [place] 12 Lead EKGon 01-26-2025 12 Lead EKG [facility] Services [address] [place] [address] 12 Lead EKG 01/26/25 1652 MR#: [id number] Acct: [id number] Name: ITALO BURGOS Rep #: [id number] : 1970 54 From: Tylor Rudd MD [...] for LVH, may be normal variant ( [facility] product ) Cannot rule out Septal infarct Abnormal ECG Confirmed by IBRAHIMA NORTON, TYLOR ([id number]), senior editor JEANETTE MARQUEZ ([id number]) on 01/27/2025 10:36:28 AM Referred By: Confirmed By: TYLOR RUDD MD 01/27/25 1036 Date Tylor Rudd MD CC: Dr. Zaida Gaston MD; Dr. Yony Solis DO Signed Normal [facility] Abdomen/Pelvis without Conto n 01-26-2025 Abdomen/Pelvis without Cont [facility] Imaging Services [address] [place] [address] Abdomen/Pelvis without Cont MR#: [id number] Acct: [id number] Name: ITALO BURGOS Rep #: [id number] : 1970 54 From: Gen Jack MD PCP: Dr. Zaida Gaston MD Status: REG ER Study: Abdomen/Pelvis without Cont Date of Exam: 01/08 Exam# [id number] Ordering Dr: Yony Solis DO PROCEDURE: ABDOMEN/PELVIS [...] surrounding inflammation. Adrenals: Normal. Kidneys: Severely atrophic [place] kidneys. Right pelvic transplanted kidney transplanted right kidney ureter 10 mm calculus with severe upstream hydroureteronephrosis. Transplant kidney perinephric stranding which may represent back pressure. Bladder: Markedly concentrically thickened wall. Reproductive Organs: Unremarkable Bowel: Appendix: Lymph nodes: Vasculature: Peritoneum / Retroperitoneum: Mild atherosclerosis. Small volume ascites. Bones: CT/Abdomen/Pelvis without Cont IMPRESSION: 1. Transplanted right kidney obstructing ureteral calculus with sedzdhnq-gh-vwbswe upstream hydroureteronephrosis. 2. Severely thickened urinary bladder wall suspicious for cystitis. 3. Severely atrophic [place] kidneys. 4. Anasarca. 5. Small volume ascites. OVERALL FINAL ASSESSMENT: . LI-RADS is not meant to be used in patients <18 years or patients with cirrhosis due to congenital hepatic fibrosis or due to vascular disorders, because these patients have a lower chance of developing HCC. Reading Location: [place] [address] CC: Dr. Zaida Gaston MD; Dr. Yony Solis DO Regional Administrative Assistant: Signed Normal [facility] Absolute lymphocyte countOrd ered By: ED PROVIDER on 01-26-2025 Lymphocytes Auto (Unsp spec) [#/Vol] 0.56 10*3/uL Low 0.83-4.51 [facility] Absolute neutrophil countOrd ered By: ED PROVIDER on 01-26-2025 Neutrophils (Bld) [#/Vol] 8.1 10*3/uL High 2.0-7.7 [facility] Amorphous sediment detection in urine sediment by light microscopyOrdered By: Yony Solis on 01-26-2025 Amorphous sediment LM Ql (Urine sed) 1+ [facility] Automated blood erythrocyte countOrdered By: ED PROVIDER on 01-26-2025 RBC (Bld) [#/Vol] 4.14 10*6/uL Low 4.6-6.2 [facility] Comment on above: Performed By: #### L 500.2500 #### [facility] [address] [place], [address] Automated blood hematocrit ( percentage)Ordered By: ED PROVIDER on 01-26-2025 Hematocrit (Bld) [Volume fraction] 37.1 % Low 40-54 [facility] Comment on above: Performed By: #### L 500.2500 #### [facility] [address] [place], [address] Automated lymphocyte count a s percentage of total leukocytesOrdered By: ED PROVIDER on 01-26-2025 Lymphocytes/100 WBC Auto (Unsp spec) 5.9 % Low 19-41 [facility] Basic Metabolic Profile (BMP )on 01-26-2025 BUN/CRE 9.4 RATIO Low 10-20 [facility] Comment on above: Performed By: #### L 500.2500, L100.0100 #### [facility] [address] [place], [address] Calcium [Mass/Vol] 5.6 mg/dL Invalid Interpretation Code 7.6-11.0 [facility] Comment on above: Result Comment: Crit ical Result(s) Called at: 2341 by: RUDY KELLEY TO SYDNEE DOUGHERTY??Results read back by same. Performed By: #### L 500.2500, L100.0100 #### [facility] [address] [place], [address] Chloride [Moles/Vol] 108 mmol/L Normal 98-108 [facility] Comment on above: Performed By: #### L 500.2500, L100.0100 #### [facility] [address] [place], [address] CO2 [Moles/Vol] 13.1 mmol/L Low 21.0-32.0 [facility] Comment on above: Performed By: #### L 500.2500, L100.0100 #### [facility] [address] [place], [address] Creatinine [Mass/Vol] 7.23 mg/dL High 0.70-1.20 [facility] Comment on above: Performed By: #### L 500.2500, L100.0100 #### [facility] [address] [place], [address] ECRCL 12.21 ml/min Low 50-250 [facility] Comment on above: Performed By: #### L 500.2500, L100.0100 #### [facility] [address] [place], [address] GAP 13 Normal 5-15 [facility] Comment on above: Performed By: #### L 500.2500, L100.0100 #### [facility] [address] [place], [address] GFR/1.73 sq M.predicted among non-blacks MDRD (S/P/Bld) [Vol rate/Area] 8 mL/min/{1.73_m2} Low >60 [facility] Comment on above: Result Comment: mL/m in/1.73m2 CKD-EPI Creatinine Equation (2020) Performed By: #### L 500.2500, L100.0100 #### [facility] [address] [place], [address] Glucose [Mass/Vol] 225 mg/dL High 70-99 [facility] Comment on above: Performed By: #### L 500.2500, L100.0100 #### [facility] [address] [place], [address] Potassium [Moles/Vol] 3.0 mmol/L Low 3.3-5.1 [facility] Comment on above: Performed By: #### L 500.2500, L100.0100 #### [facility] [address] [place], [address] Sodium [Moles/Vol] 133 mmol/L Normal 133-145 [facility] Comment on above: Performed By: #### L 500.2500, L100.0100 #### [facility] [address] [place], [address] Urea nitrogen [Mass/Vol] 68 mg/dL High 4-19 [facility] Comment on above: Performed By: #### L 500.2500, L100.0100 #### [facility] [address] [place], [address] BUN/CRE 8.9 RATIO Low 10-20 [facility] Comment on above: Performed By: #### L 500.2500, L100.0100 #### [facility] [address] [place], [address] Calcium [Mass/Vol] 7.0 mg/dL Low 7.6-11.0 [facility] Comment on above: Performed By: #### L 500.2500, L100.0100 #### [facility] [address] [place], [address] Chloride [Moles/Vol] 79 mmol/L Low 98-108 [facility] Comment on above: Performed By: #### L 500.2500, L100.0100 #### [facility] [address] [place], [address] CO2 [Moles/Vol] 13.8 mmol/L Low 21.0-32.0 [facility] Comment on above: Performed By: #### L 500.2500, L100.0100 #### [facility] [address] [place], [address] Creatinine [Mass/Vol] 8.95 mg/dL Invalid Interpretation Code 0.70-1.20 [facility] Comment on above: Result Comment: Crit ical Result(s) Called at: by:??Results read back by same. Critical Result(s) Called ASCHAFER at: 2155 by: SOUTH??Results read back by same. Performed By: #### L 500.2500, L100.0100 #### [facility] [address] [place], [address] ECRCL 9.87 ml/min Invalid Interpretation Code 50-250 [facility] Comment on above: Performed By: #### L 500.2500, L100.0100 #### [facility] [address] [place], [address] GAP 25 High 5-15 [facility] Comment on above: Performed By: #### L 500.2500, L100.0100 #### [facility] [address] [place], [address] GFR/1.73 sq M.predicted among non-blacks MDRD (S/P/Bld) [Vol rate/Area] 6 mL/min/{1.73_m2} Low >60 [facility] Comment on above: Result Comment: mL/m in/1.73m2 CKD-EPI Creatinine Equation (2020) Performed By: #### L 500.2500, L100.0100 #### [facility] [address] [place], [address] Glucose [Mass/Vol] 877 mg/dL Invalid Interpretation Code 70-99 [facility] Comment on above: Result Comment: Crit ical Result(s) Called ASCHAFER at: 2155 by: BWORKMAN??Results read back by same. Performed By: #### L 500.2500, L100.0100 #### [facility] [address] [place], [address] Potassium [Moles/Vol] 4.3 mmol/L Normal 3.3-5.1 [facility] Comment on above: Performed By: #### L 500.2500, L100.0100 #### [facility] [address] [place], [address] Sodium [Moles/Vol] 117 mmol/L Invalid Interpretation Code 133-145 [facility] Comment on above: Result Comment: Crit ical Result(s) Called ASCHAFER at: 2155 by: BWORKMAN??Results read back by same. Performed By: #### L 500.2500, L100.0100 #### [facility] [address] [place], [address] Urea nitrogen [Mass/Vol] 80 mg/dL High 4-19 [facility] Comment on above: Performed By: #### L 500.2500, L100.0100 #### [facility] [address] [place], [address] BUN/CRE 8.9 RATIO Low 10-20 [facility] Comment on above: Performed By: #### L 500.2500 #### [facility] [address] [place], [address] Calcium [Mass/Vol] 7.5 mg/dL Low 7.6-11.0 [facility] Comment on above: Performed By: #### L 500.2500 #### [facility] [address] [place], [address] Chloride [Moles/Vol] 90 mmol/L Low 98-108 [facility] Comment on above: Performed By: #### L 500.2500 #### [facility] [address] [place], [address] CO2 [Moles/Vol] 14.3 mmol/L Low 21.0-32.0 [facility] Comment on above: Performed By: #### L 500.2500 #### [facility] [address] [place], [address] Creatinine [Mass/Vol] 9.55 mg/dL Invalid Interpretation Code 0.70-1.20 [facility] Comment on above: Result Comment: Crit ical Result(s) Called LSPARR at: 2012 by: SOUTH??Results read back by same. Performed By: #### L 500.2500 #### [facility] [address] [place], [address] ECRCL 9.25 ml/min Invalid Interpretation Code 50-250 [facility] Comment on above: Performed By: #### L 500.2500 #### [facility] [address] [place], [address] GAP 17 High 5-15 [facility] Comment on above: Performed By: #### L 500.2500 #### [facility] [address] [place], [address] GFR/1.73 sq M.predicted among non-blacks MDRD (S/P/Bld) [Vol rate/Area] 6 mL/min/{1.73_m2} Low >60 [facility] Comment on above: Result Comment: mL/m in/1.73m2 CKD-EPI Creatinine Equation (2020) Performed By: #### L 500.2500 #### [facility] [address] [place], [address] Glucose [Mass/Vol] 699 mg/dL Invalid Interpretation Code 70-99 [facility] Comment on above: Result Comment: Crit ical Result(s) Called ACOLE at: 1949 by: SOUTH??Results read back by same. Performed By: #### L 500.2500 #### [facility] [address] [place], [address] Potassium [Moles/Vol] 4.8 mmol/L Normal 3.3-5.1 [facility] Comment on above: Performed By: #### L 500.2500 #### [facility] [address] [place], [address] Sodium [Moles/Vol] 121 mmol/L Low 133-145 [facility] Comment on above: Performed By: #### L 500.2500 #### [facility] [address] [place], [address] Urea nitrogen [Mass/Vol] 85 mg/dL High 4-19 [facility] Comment on above: Performed By: #### L 500.2500 #### [facility] [address] [place], [address] BUN/CRE 8.7 RATIO Low 10-20 [facility] Comment on above: Performed By: #### L 500.2500, L100.0100 #### [facility] [address] [place], [address] Calcium [Mass/Vol] 8.5 mg/dL Normal 7.6-11.0 [facility] Comment on above: Performed By: #### L 500.2500, L100.0100 #### [facility] [address] [place], [address] Chloride [Moles/Vol] 83 mmol/L Low 98-108 [facility] Comment on above: Performed By: #### L 500.2500, L100.0100 #### [facility] [address] [place], [address] CO2 [Moles/Vol] 17.6 mmol/L Low 21.0-32.0 [facility] Comment on above: Performed By: #### L 500.2500, L100.0100 #### [facility] [address] [place], [address] Creatinine [Mass/Vol] 10.30 mg/dL Invalid Interpretation Code 0.70-1.20 [facility] Comment on above: Result Comment: Crit ical Result(s) Called at: by:??Results read back by same. Critical Result(s) Called ACOLE at: 1646 by: SOUTH??Results read back by same. Performed By: #### L 500.2500, L100.0100 #### [facility] [address] [place], [address] ECRCL 8.57 ml/min Invalid Interpretation Code 50-250 [facility] Comment on above: Performed By: #### L 500.2500, L100.0100 #### [facility] [address] [place], [address] GAP 17 High 5-15 [facility] Comment on above: Performed By: #### L 500.2500, L100.0100 #### [facility] [address] [place], [address] GFR/1.73 sq M.predicted among non-blacks MDRD (S/P/Bld) [Vol rate/Area] 5 mL/min/{1.73_m2} Low >60 [facility] Comment on above: Result Comment: mL/m in/1.73m2 CKD-EPI Creatinine Equation (2020) Performed By: #### L 500.2500, L100.0100 #### [facility] [address] [place], [address] Glucose [Mass/Vol] 838 mg/dL Invalid Interpretation Code 70-99 [facility] Comment on above: Result Comment: Crit ical Result(s) Called ACOLE at:1646 by: View MedicalORKMAN??Results read back by same. Performed By: #### L 500.2500, L100.0100 #### [facility] [address] [place], [address] Potassium [Moles/Vol] 5.7 mmol/L High 3.3-5.1 [facility] Comment on above: Performed By: #### L 500.2500, L100.0100 #### [facility] [address] [place], [address] Sodium [Moles/Vol] 118 mmol/L Invalid Interpretation Code 133-145 [facility] Comment on above: Result Comment: Crit ical Result(s) Called ACOLE at:1646 by: BWORKMAN??Results read back by same. Performed By: #### L 500.2500, L100.0100 #### [facility] [address] [place], [address] Urea nitrogen [Mass/Vol] 90 mg/dL High 4-19 [facility] Comment on above: Performed By: #### L 500.2500, L100.0100 #### [facility] [address] [place], [address] Basophil percentageOrdered B y: ED PROVIDER on 01-26-2025 Basophils/100 WBC (Bld) 0.2 % Normal 0-1 [facility] Comment on above: Performed By: #### L 500.2500 #### [facility] [address] [place], [address] Bedside Glucoseon 01-26-2025 FINGERSTICK GLU > 500 Invalid Interpretation Code 74-106 [facility] Comment on above: Result Comment: Dr Cholo shafer Followed MANAGEMENT OF PATIENT CARE PER NURSING PROTOCOL Performed By: #### L 500.2500, L100.0100 #### [facility] [address] [place], [address] FINGERSTICK GLU > 500 Invalid Interpretation Code 74-106 [facility] Comment on above: Result Comment: Dr Cholo shafer Followed MANAGEMENT OF PATIENT CARE PER NURSING PROTOCOL Performed By: #### L 501.080 #### [facility] [address] [place], [address] Beta-Hydroxbytyrateon 2024 BETA-HYDROXYBUT 0.7 mmol/L Normal 0.0-0.3 [facility] Comment on above: Performed By: #### L 500.2500 #### [facility] [address] [place], [address] Bilirubin Test strip Ql (U)O rdered By: Yony Solis on 01-26-2025 Bilirubin Ql (U) Negative Negative [facility] Bilirubin directOrdered By: Yony Solis on 01-26-2025 Bilirubin.direct [Mass/Vol] 0.30 mg/dL Normal 0.00-0.30 [facility] Comment on above: Order Comment: BMP D ONE AT 1600 Performed By: #### L 500.2500, L100.0100 #### [facility] [address] [place], [address] Bilirubin, totalOrdered By: Yony Solis on 01-26-2025 Bilirubin [Mass/Vol] 0.58 mg/dL Normal 0.00-1.30 [facility] Comment on above: Order Comment: BMP D ONE AT 1600 Performed By: #### L 500.2500, L100.0100 #### [facility] [address] [place], [address] CBC W/Diff, Automatedon 01-08 0-2024 Absolute Lymph 0.56 X10 3/uL Low 0.83-4.51 [facility] Comment on above: Performed By: #### L 500.2500 #### [facility] [address] [place], [address] Absolute Neut 8.1 X10 3/uL High 2.0-7.7 [facility] Comment on above: Performed By: #### L 500.2500 #### [facility] [address] [place], [address] IG% 0.500 Normal 0.0-0.9 [facility] Comment on above: Result Comment: IG% - Immature Granulocytes (promyelocytes, myelocytes and metamyelocytes) > 1% indicates that a LEFT SHIFT is Present. Performed By: #### L 500.2500 #### [facility] [address] [place], [address] Lymphocytes/100 WBC (Bld) 5.9 % Low 19-41 [facility] Comment on above: Performed By: #### L 500.2500 #### [facility] [address] [place], [address] Nucleated RBC (Bld) [#/Vol] 0 10*3/uL Normal 0-5 [facility] Comment on above: Performed By: #### L 500.2500 #### [facility] [address] [place], [address] RDW SD 38.0 fl Normal 35.1-43.9 [facility] Comment on above: Performed By: #### L 500.2500 #### [facility] [address] [place], [address] CO2 (BldV) [Moles/Vol]Ordere d By: Yony Solis on 01-26-2025 CO2 [Moles/Vol] 18 mmol/L Low 23-33 [facility] Chest PA and Lateralon 01-26 Chest PA and Lateral [facility] Imaging Services [address] [place] [address] Chest PA and Lateral MR#: [id number] Acct: [id number] Name: ITALO BURGOS Rep #: [id number] : 1970 M 54 From: Gen Jack MD PCP: Dr. Zaida Gaston MD Status: [facility] ER Study: Chest PA and Lateral Date of Exam: 01/26/25 Exam# [id number] Ordering Dr: Yony Solis DO PROCEDURE: CHEST PA AND LATERAL 01/26/2025 REASON FOR EXAM: COUGH TECHNIQUE: Frontal and lateral views of the chest. COMPARISON: None. FINDINGS: Hardware: None. Heart: Heart size is mildly enlarged. Mediastinum: The mediastinal contour is unremarkable. Lungs: The lungs are clear. Bones: The bones are unremarkable. RAD/Chest PA and Lateral IMPRESSION: NO ACUTE FINDINGS. Reading Location: [place] [address] CC: Dr. Zaida Gaston MD; Dr. Yony Solis DO Regional Administrative Assistant: Signed Normal [facility] Emergency Department Summary on 01-26-2025 Emergency Department Summary [facility] Medical Records Department [address] [place] [address] Emergency Department Summary 01/26/25 MR#: [id number] Acct: [id number] Name: ITALO BURGOS Rep #: [id number] : 1970 54 From: Yony Underwood PCP: Dr. Zaida Gaston MD Status:DEP ER Location: ED HPI History of Present Illness Chief Complaint: Hyperglycemia Informant: patient Narrative Narrative: Brought in by EMS from the [facility] I day history weakness dizziness. He is [...] frequency increasing thirst. He is followed by [facility] transplant, he states he is taking his medications. He has been in the [facility] for 4 months. Blood glucose 583 by EMS. 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 Normal [facility] Eosinophil percentageOrdered By: ED PROVIDER on 01-26-2025 Eosinophils/100 WBC (Bld) 0.0 % Normal 0-5 [facility] Comment on above: Performed By: #### L 500.2500 #### [facility] [address] [place], [address] Erythrocyte distribution wid th ratioOrdered By: ED PROVIDER on 01-26-2025 Erythrocyte distribution width (RBC) [Ratio] 11.7 % Normal 11.6-14.6 [facility] Comment on above: Performed By: #### L 500.2500 #### [facility] [address] [place], [address] Erythrocyte distribution wid th standard deviationOrdered By: ED PROVIDER on 01-26-2025 Erythrocyte distribution width (RBC) [Ratio] 38.0 fl 35.1-43.9 [facility] [facility]2025 Glucose [Mass/Vol] 699 mg/dL Invalid Interpretation Code 70-99 [facility] Comment on above: Result Comment: Crit ical Result(s) Called ACOLE at: 1949 by: SOUTH??Results read back by same. Performed By: #### L 500.2500, L100.0100 #### [facility] [address] [place], [address] Hemoglobin measurementOrdere d By: ED PROVIDER on 01-26-2025 Hemoglobin (Bld) [Mass/Vol] 12.9 g/dL Low 13.0-16.5 [facility] Comment on above: Performed By: #### L 500.2500 #### [facility] [address] [place], [address] Immature granulocytes/100 WB C Auto (Bld)Ordered By: ED PROVIDER on 01-26-2025 Immature granulocytes/100 WBC (Bld) 0.500 % 0.0-0.9 [facility] Comment on above: IG% - Immature Granu locytes (promyelocytes, myelocytes and metamyelocytes) > 1% indicates that a LEFT SHIFT is Present. Ketones Test strip Ql (U)Ord ered By: Yony Solis on 01-26-2025 Ketones Ql (U) Negative Negative [facility] Lipase measurementOrdered By : Yony Solis on 01-26-2025 Lipase [Catalytic activity/Vol] 48 U/L Normal 13-75 [facility] Comment on above: Please note:LIPASE r [...] Performed By: #### L 500.2500, L100.0100 #### [facility] [address] [place], [address] Liver Profileon 01-26-2025 ALK PHOS 120 U/L Normal 40-129 [facility] Comment on above: Order Comment: BMP D ONE AT 1600 Performed By: #### L 500.2500, L100.0100 #### [facility] [address] [place], [address] T PROT 5.7 g/dL Low 5.9-8.4 [facility] Comment on above: Order Comment: BMP D ONE AT 1600 Performed By: #### L 500.2500, L100.0100 #### [facility] [address] [place], [address] Liver ProfileOrdered By: Brien Solis on 01-26-2025 AST [Catalytic activity/Vol] 9 U/L Normal <=37 [facility] Comment on above: Order Comment: BMP D ONE AT 1600 Performed By: #### L 500.2500, L100.0100 #### [facility] [address] [place], [address] MCV (mean corpuscular volume ) determinationOrdered By: ED PROVIDER on 01-26-2025 MCV (RBC) [Entitic vol] 89.6 fL Normal 80-94 [facility] Comment on above: Performed By: #### L 500.2500 #### [facility] [address] [place], [place], [id number] Mean corpuscular hemoglobin (MCH) determinationOrdered By: ED PROVIDER on 01-26-2025 MCH (RBC) [Entitic mass] 31.2 pg Normal 27.0-32.0 [facility] Comment on above: Performed By: #### L 500.2500 #### [facility] [address] [place], [address] Mean corpuscular hemoglobin concentration (MCHC) determinationOrdered By: ED PROVIDER on 01-26-2025 MCHC (RBC) [Mass/Vol] 34.8 g/dL Normal 32-36 [facility] Comment on above: Performed By: #### L 500.2500 #### [facility] [address] [place], [place], [address] Mean platelet volume determi nationOrdered By: ED PROVIDER on 01-26-2025 Platelet mean volume (Bld) [Entitic vol] 9.9 fL Normal 6.2-12.0 [facility] Comment on above: Performed By: #### L 500.2500 #### [facility] [address] [place], [address] Microscopic analysis of urin e for red blood cells (RBC)Ordered By: Yony Solis on 01-26-2025 Microscopic analysis of urine for red blood cells (RBC) 5-10 SEEN /hpf 0-5 [facility] Monocyte percentageOrdered B y: ED PROVIDER on 01-26-2025 Monocytes/100 WBC (Bld) 8.2 % Normal 0-10 [facility] Comment on above: Performed By: #### L 500.2500 #### [facility] [address] [place], [address] Mucus LM Ql (Urine sed)Order ed By: Yony Solis on 01-26-2025 Mucus Ql (Urine sed) 0 SEEN /hpf [facility] Neutrophil percentageOrdered By: ED PROVIDER on 01-26-2025 Neutrophils/100 WBC (Bld) 85.2 % High 47-70 [facility] Comment on above: Performed By: #### L 500.2500 #### [facility] [address] [place], [place], [id number] Nitrite Test strip Ql (U)Ord ered By: Yony Solis on 01-26-2025 Nitrite Ql (U) Negative Negative [facility] No Panel InformationOrdered By: Yony Solis on 01-26-2025 Blood Gas Sample Site Not entered [facility] Blood Gas Specimen Type ANTHONY [facility] Oxygen Delivery Device Room Air [facility] ANTHONY [facility] Not entered [facility] Room Air [facility] 9 U/L <38 [facility] Nucleated red blood cell per centageOrdered By: ED PROVIDER on 01-26-2025 Nucleated RBC/100 WBC (Bld) [Ratio] 0 % 0-5 [facility] Platelet countOrdered By: ED PROVIDER on 01-26-2025 Platelets (Bld) [#/Vol] 168 10*3/uL Normal 150-450 [facility] Comment on above: Performed By: #### L 500.2500 #### [facility] [address] [facility] [place], [id number] Protein Test strip Ql (U)Ord ered By: Yony Solis on 01-26-2025 Protein Ql (U) 30 mg/dl High Negative [facility] Serum globulin measurementOr dered By: Yony Solis on 01-26-2025 Globulin (S) [Mass/Vol] 2.7 g/dL Normal 2.2-4.2 [facility] Comment on above: Order Comment: BMP D ONE AT 1600 Performed By: #### L 500.2500, L100.0100 #### [facility] [address] [place], [place], [address] Serum or plasma alanine andrade otransferase (ALT) measurementOrdered By: Yony Solis on 01-26-2025 ALT [Catalytic activity/Vol] 12 U/L Normal <=46 [facility] Comment on above: Order Comment: BMP D ONE AT 1600 Performed By: #### L 500.2500, L100.0100 #### [facility] [address] [place], [address] Serum or plasma albumin regi urement (mass/volume)Ordered By: Yony Solis on 01-26-2025 Albumin [Mass/Vol] 3.0 g/dL Low 3.5-5.0 [facility] Comment on above: Order Comment: BMP D ONE AT 1600 Performed By: #### L 500.2499, L100.0100 #### [facility] [address] [place], [address] Serum or plasma alkaline cindi sphatase measurementOrdered By: Yony Solis on 01-26-2025 ALP [Catalytic activity/Vol] 120 U/L 40-129 [facility] Squamous epithelial cells de tection in urine sediment by light microscopyOrdered By: Yony Solis on 01-26-2025 Epithelial cells.squamous LM Ql (Urine sed) 0 SEEN /hpf 0-5 [facility] Total proteinOrdered By: Brien Solis on 01-26-2025 Protein [Mass/Vol] 5.7 g/dL Low 5.9-8.4 [facility] Urinalysis, Completeon 01-26 AMORPHOUS 1+ Normal [facility] Comment on above: Order Comment: CLEAN CATCH Performed By: #### L 500.2500, L100.0100 #### [facility] [address] [place], [address] RBC 5-10 SEEN Normal 0-5 [facility] Comment on above: Order Comment: CLEAN CATCH Performed By: #### L 500.2500, L100.0100 #### [facility] [address] [place], [address] WBC 10-25 SEEN Normal 0-5 [facility] Comment on above: Order Comment: CLEAN CATCH Performed By: #### L 500.2500, L100.0100 #### [facility] [address] [place], [address] BACTERIA 0 SEEN Normal None Seen [facility] Comment on above: Order Comment: CLEAN CATCH Performed By: #### L 500.2500, L100.0100 #### [facility] [address] [place], [address] EPI,SQUAMOUS 0 SEEN Normal 0-5 [facility] Comment on above: Order Comment: CLEAN CATCH Performed By: #### L 500.2500, L100.0100 #### [facility] [address] [place], [address] Mucus Ql (Urine sed) 0 SEEN Normal [facility] Comment on above: Order Comment: CLEAN CATCH Performed By: #### L 500.2500, L100.0100 #### [facility] [address] [place], [address] Urine clarityOrdered By: Brien Solis on 01-26-2025 Clarity (U) Sl. Cloudy Clear [facility] Urine color determinationOrd ered By: Yony Solis on 01-26-2025 Color (U) Yellow Yellow [facility] Urine cultureOrdered By: Brien Solis on 01-26-2025 Bacteria identified Cx Nom (U) Culture exhibits no growth. [facility] Urine glucose detectionOrder ed By: Yony Solis on 01-26-2025 Glucose Ql (U) 1000 mg/dl High Normal [facility] Urine leukocyte esterase det ection by dipstickOrdered By: Yony Solis on 01-26-2025 Leukocyte esterase Test strip Ql (U) 25 /ul High Negative [facility] Urine pHOrdered By: Yony Solis on 01-26-2025 pH (U) 6.0 [pH] 5.0 - 8.0 [facility] Urine sediment bacteria coun t by microscopy (number/high power field)Ordered By: Yony Solis on 01-26-2025 Bacteria LM.HPF (Urine sed) [#/Area] 0 /[HPF] None Seen [facility] Urine specific gravity measu rementOrdered By: Yony Solis on 01-26-2025 Specific gravity (U) [Rel density] 1.015 1.002-1.030 [facility] Urine urobilinogen measureme ntOrdered By: Yony Solis on 01-26-2025 Urobilinogen Ql (U) Normal mg/dl Normal [facility] Venous Blood Gason Blood Gas Type ANTHONY Normal [facility] Comment on above: Performed By: #### L 500.2500, L100.0100 #### [facility] [address] [place], [address] CO2 [Moles/Vol] 18 mmol/L Low 23-33 [facility] Comment on above: Performed By: #### L 500.2500, L100.0100 #### [facility] [address] [place], [address] HCO3 (Bld) [Moles/Vol] 17 mmol/L Low 22-[address] [facility] Comment on above: Performed By: #### L 500.2500, L100.0100 #### [facility] [address] [place], [address] O2 Delivery Dev Room Air [facility] Comment on above: Performed By: #### L 500.2500, L100.0100 #### [facility] [address] [place], [address] SITE Not entered [facility] Comment on above: Performed By: #### L 500.2500, L100.0100 #### [facility] [address] [place], [address] VBG BE -10 mmol/L Low -1.0-3.5 [facility] Comment on above: Performed By: #### L 500.2500, L100.0100 #### [facility] [address] [place], [address] VBG pCO2 36.2 mmHg Low 41-51 [facility] Comment on above: Performed By: #### L 500.2500, L100.0100 #### [facility] [address] [place], [address] VBG pH 7.27 Low 7.32-7.42 [facility] Comment on above: Performed By: #### L 500.2500, L100.0100 #### [facility] [address] [place], [address] VBG PO2 35 mmHg Normal 25-40 [facility] Comment on above: Performed By: #### L 500.2500, L100.0100 #### [facility] [address] [place], [address] VBG SO2 61 Normal 50-70 [facility] Comment on above: Performed By: #### L 500.2500, L100.0100 #### [facility] [address] [place], [address] Venous blood base excess nicki surementOrdered By: Yony Solis on 01-26-2025 Base excess Calc (BldV) [Moles/Vol] -10 mmol/L Low -1.0-3.5 [facility] Venous blood bicarbonate nicki surementOrdered By: Yony Solis on 01-26-2025 HCO3 (Bld) [Moles/Vol] 17 mmol/L Low 22-[address] [facility] Venous blood oxygen saturati on measurementOrdered By: Yony Solis on 01-26-2025 Oxygen saturation in Blood 61 % 50-70 [facility] Venous blood pH measurementO rdered By: Yony Solis on 01-26-2025 pH (BldV) 7.27 [pH] Low 7.32-7.42 [facility] Venous blood partial pressur e of carbon dioxide measurementOrdered By: Yony Solis on 01-26-2025 CO2 (BldV) [Partial pressure] 36.2 mm[Hg] Low 41-51 [facility] Venous blood partial pressur e of oxygen measurementOrdered By: Yony Solis on 01-26-2025 Oxygen (BldV) [Partial pressure] 35 mm[Hg] 25-40 [facility] White blood cell (WBC) count Ordered By: ED PROVIDER on 01-26-2025 WBC (Bld) [#/Vol] 9.5 10*3/uL Normal 4.4-11.0 [facility] Comment on above: Performed By: #### L 500.2500 #### [facility] [address] [place], [place], [address] White blood cell countOrdere d By: Yony Solis on 01-26-2025 White blood cell count 10-25 SEEN /hpf 0-5 [facility] 25(OH)D3 SerPl-mCncon 2024 25-hydroxyvitamin D3 [Mass/Vol] 16.7 ng/mL Low 31.0-80.0 [facility] Comment on above: Order Comment: Speci men Type: SWAB Ordering Facility: [facility] Address: [address] [place] [address] Result Comment: Clas sification of 25 [place] Vitamin D status: Deficiency/Insufficiency: < or = 30 ng/ml. Sufficiency/Optimal Levels: 31-80 ng/mL Toxicity: > 100 ng/mL. Test performed by chemiluminescent immunoassay. Performed By: #### S APCR #### [facility] CLIA [id number] [address] [place] [address] [place] ALBUMIN/CREATININE RATIO, UR INEon 01-01-2025 Albumin DL <= 20 mg/L (U) [Mass/Vol] 18.3 mg/L Normal [facility] Comment on above: Order Comment: Speci men Type: BLOOD SPECIMEN Ordering Facility: [facility] Address: [address] [place] [address] Performed By: #### 1 1253-2 #### [facility] CLIA [id number] [address] [place] [address] [place] Albumin/Creatinine (U) [Mass ratio] 42 mg/g High <30 [facility] Comment on above: Order Comment: Speci men Type: BLOOD SPECIMEN Ordering Facility: [facility] Address: [address] [place] [address] Result Comment: Adul t Male and Female Nephrotic Criteria: <30 mg/g is considered normal to mildly increased 30-300 mg/g is considered moderately increased >300 mg/g is considered severely increased KDIGO. (2013). KDIGO 2012 Clinical Practice Guideline for the Evaluation and Management of Chronic Kidney Disease. Official Journal of the International Society of Nephrology, 3(1), 1-150. Performed By: #### 1 1253-2 #### [facility] CLIA [id number] [address] [place] [address] [place] Creatinine (U) [Mass/Vol] 43.4 mg/dL Normal 20.0-300.0 [facility] Comment on above: Order Comment: Speci men Type: BLOOD SPECIMEN Ordering Facility: [facility] Address: [address] [place] [address] Performed By: #### 1 1253-2 #### [facility] CLIA [id number] [address] [place] [address] [place] CBC W Auto Differential pane l (Bld)on 01-01-2025 Basophils (Bld) [#/Vol] 10*3/uL Normal <0.11 [facility] Comment on above: Order Comment: Speci men Type: SWAB Ordering Facility: [facility] Address: [address] [place] [address] Performed By: #### S APCR #### [facility] CLIA [id number] [address] [place] [address] [place] Basophils/100 WBC (Bld) 0.3 % Normal [facility] Comment on above: Order Comment: Speci men Type: SWAB Ordering Facility: [facility] Address: [address] [place] [address] Performed By: #### S APCR #### [facility] CLIA [id number] [address] [id number] [address] [place] Differential cell count method Nom (Bld) Auto Normal [facility] Comment on above: Order Comment: Speci men Type: SWAB Ordering Facility: [facility] Address: [address] [place] [address] Performed By: #### S APCR #### [facility] CLIA [id number] [address] [place] [address] [place] Eosinophils (Bld) [#/Vol] 0.04 10*3/uL Normal <0.46 [facility] Comment on above: Order Comment: Speci men Type: SWAB Ordering Facility: [facility] Address: [address] [place] [address] Performed By: #### S APCR #### [facility] CLIA [id number] [address] [place] [address] [place] Eosinophils/100 WBC (Bld) 0.7 % Normal [facility] Comment on above: Order Comment: Speci men Type: SWAB Ordering Facility: [facility] Address: [address] [place] [address] Performed By: #### S APCR #### [facility] CLIA [id number] [address] [place] [address] [place] Erythrocyte distribution width (RBC) [Ratio] 11.5 % Normal 11.5-15.0 [facility] Comment on above: Order Comment: Speci men Type: SWAB Ordering Facility: [facility] Address: [address] [place] [address] Performed By: #### S APCR #### [facility] CLIA [id number] [address] [place] [address] [place] Hematocrit (Bld) [Volume fraction] 46.6 % Normal 39.0-51.0 [facility] Comment on above: Order Comment: Speci men Type: SWAB Ordering Facility: [facility] Address: [address] [place] [address] Performed By: #### S APCR #### [facility] CLIA [id number] [address] [place] [address] [place] Hemoglobin (Bld) [Mass/Vol] 16.1 g/dL Normal 13.0-17.0 [facility] Comment on above: Order Comment: Speci men Type: SWAB Ordering Facility: [facility] Address: [address] [place] [address] Performed By: #### S APCR #### [facility] CLIA [id number] [address] [place] [address] [place] Immature granulocytes (Bld) [#/Vol] 0.03 10*3/uL Normal <0.10 [facility] Comment on above: Order Comment: Speci men Type: SWAB Ordering Facility: [facility] Address: [address] [place] [address] Performed By: #### S APCR #### [facility] CLIA [id number] [address] [place] [address] [place] Immature granulocytes/100 WBC (Bld) 0.5 % Normal [facility] Comment on above: Order Comment: Speci men Type: SWAB Ordering Facility: [facility] Address: [address] [place] [address] Performed By: #### S APCR #### [facility] CLIA [id number] [address] [place] [address] [place] Lymphocytes (Bld) [#/Vol] 1.38 10*3/uL Normal 1.00-4.00 [facility] Comment on above: Order Comment: Speci men Type: SWAB Ordering Facility: [facility] Address: [address] [place] [address] Performed By: #### S APCR #### [facility] CLIA [id number] [address] [place] [address] [place] Lymphocytes/100 WBC (Bld) 23.0 % Normal [facility] Comment on above: Order Comment: Speci men Type: SWAB Ordering Facility: [facility] Address: [address] [place] [address] Performed By: #### S APCR #### [facility] CLIA [id number] [address] [place] [address] [place] MCH (RBC) [Entitic mass] 31.0 pg Normal 26.0-34.0 [facility] Comment on above: Order Comment: Speci men Type: SWAB Ordering Facility: [facility] Address: [address] [place] [address] Performed By: #### S APCR #### [facility] CLIA [id number] [address] [place] [address] [place] MCHC (RBC) [Mass/Vol] 34.5 g/dL Normal 30.5-36.0 [facility] Comment on above: Order Comment: Speci men Type: SWAB Ordering Facility: [facility] Address: [address] [place] [address] Performed By: #### S APCR #### [facility] CLIA [id number] [address] [place] [address] [place] MCV (RBC) [Entitic vol] 89.6 fL Normal 80.0-100.0 [facility] Comment on above: Order Comment: Speci men Type: SWAB Ordering Facility: [facility] Address: [address] [place] [address] Performed By: #### S APCR #### [facility] CLIA [id number] [address] [place] [address] [place] Monocytes (Bld) [#/Vol] 0.46 10*3/uL Normal <0.87 [facility] Comment on above: Order Comment: Speci men Type: SWAB Ordering Facility: [facility] Address: [address] [place] [address] Performed By: #### S APCR #### [facility] CLIA [id number] [address] [place] [address] [place] Monocytes/100 WBC (Bld) 7.7 % Normal [facility] Comment on above: Order Comment: Speci men Type: SWAB Ordering Facility: [facility] Address: [address] [place] [address] Performed By: #### S APCR #### [facility] CLIA [id number] [address] [place] [address] [place] Neutrophils (Bld) [#/Vol] 4.06 10*3/uL Normal 1.45-7.50 [facility] Comment on above: Order Comment: Speci men Type: SWAB Ordering Facility: [facility] Address: [address] [place] [address] Performed By: #### S APCR #### [facility] CLIA [id number] [address] [place] [address] [place] Neutrophils/100 WBC (Bld) 67.8 % Normal [facility] Comment on above: Order Comment: Speci men Type: SWAB Ordering Facility: [facility] Address: [address] [place] [address] Performed By: #### S APCR #### [facility] CLIA [id number] [address] [place] [address] [place] Nucleated RBC (Bld) [#/Vol] 10*3/uL Normal <0.01 [facility] Comment on above: Order Comment: Speci men Type: SWAB Ordering Facility: [facility] Address: [address] [place] [address] Performed By: #### S APCR #### [facility] CLIA [id number] [address] [place] [address] [place] Nucleated RBC/100 WBC (Bld) [Ratio] 0.0 /100 WBC Normal [facility] Comment on above: Order Comment: Speci men Type: SWAB Ordering Facility: [facility] Address: [address] [place] [address] Performed By: #### S APCR #### [facility] CLIA [id number] [address] [place] [address] [place] Platelet mean volume (Bld) [Entitic vol] 10.3 fL Normal 9.0-12.7 [facility] Comment on above: Order Comment: Speci men Type: SWAB Ordering Facility: [facility] Address: [address] [place] [address] Performed By: #### S APCR #### [facility] CLIA [id number] [address] [place] [address] [place] Platelets (Bld) [#/Vol] 168 10*3/uL Normal 150-400 [facility] Comment on above: Order Comment: Speci men Type: SWAB Ordering Facility: [facility] Address: [address] [place] [address] Performed By: #### S APCR #### [facility] CLIA [id number] [address] [place] [address] [place] RBC (Bld) [#/Vol] 5.20 10*6/uL Normal 4.20-6.00 [facility] Comment on above: Order Comment: Speci men Type: SWAB Ordering Facility: [facility] Address: [address] [place] [address] Performed By: #### S APCR #### [facility] CLIA [id number] [address] [place] [address] [place] WBC (Bld) [#/Vol] 5.99 10*3/uL Normal 3.70-11.00 [facility] Comment on above: Order Comment: Speci men Type: SWAB Ordering Facility: [facility] Address: [address] [place] [address] Performed By: #### S APCR #### [facility] CLIA [id number] [address] [place] [address] [place] Comprehensive metabolic 2000 panelon 01-01-2025 Albumin [Mass/Vol] 4.0 g/dL Normal 3.9-4.9 [facility] Comment on above: Order Comment: Speci men Type: BLOOD SPECIMEN [facility] [facility] Address: [address] [place] [address] Performed By: #### 1 1253-2 #### [facility] CLIA [id number] [address] [place] [address] [place] ALP [Catalytic activity/Vol] 145 U/L High 38-113 [facility] Comment on above: Order Comment: Speci men Type: BLOOD SPECIMEN Ordering Facility: [facility] Address: [address] [place] [address] Performed By: #### 1 1253-2 #### [facility] CLIA [id number] [address] [place] [address] [place] ALT [Catalytic activity/Vol] 34 U/L Normal 10-54 [facility] Comment on above: Order Comment: Speci men Type: BLOOD SPECIMEN Ordering Facility: [facility] Address: [address] [place] [address] Performed By: #### 1 1253-2 #### [facility] CLIA [id number] [address] [place] [address] [place] Anion gap [Moles/Vol] 14 mmol/L Normal 8-15 [facility] Comment on above: Order Comment: Speci men Type: BLOOD SPECIMEN Ordering Facility: [facility] Address: [address] [place] [address] Performed By: #### 1 1253-2 #### [facility] CLIA [id number] [address] [place] [address] [place] AST [Catalytic activity/Vol] 20 U/L Normal 14-40 [facility] Comment on above: Order Comment: Speci men Type: BLOOD SPECIMEN Ordering Facility: [facility] Address: [address] [place] [address] Performed By: #### 1 1253-2 #### [facility] CLIA [id number] [address] [place], [place] [address] [place] Bilirubin [Mass/Vol] 0.5 mg/dL Normal 0.2-1.3 [facility] Comment on above: Order Comment: Speci men Type: BLOOD SPECIMEN Ordering Facility: [facility] Address: [address] [place] [address] Performed By: #### 1 1253-2 #### [facility] CLIA [id number] [address] [place] [address] [place] Calcium [Mass/Vol] 9.6 mg/dL Normal 8.5-10.2 [facility] Comment on above: Order Comment: Speci men Type: BLOOD SPECIMEN Ordering Facility: [facility] Address: [address] [place] [address] Performed By: #### 1 1253-2 #### [facility] CLIA [id number] [address] [place] [address] [place] Chloride [Moles/Vol] 96 mmol/L Low 98-107 [facility] Comment on above: Order Comment: Speci men Type: BLOOD SPECIMEN Ordering Facility: [facility] Address: [address] [place] [address] Performed By: #### 1 1253-2 #### [facility] CLIA [id number] [address] [place], [place] [address] [place] CO2 [Moles/Vol] 21 mmol/L Low 22-30 [facility] Comment on above: Order Comment: Speci men Type: BLOOD SPECIMEN Ordering Facility: [facility] Address: [address] [place], [place] [id number] Performed By: #### 1 1253-2 #### [facility] CLIA [id number] [address] [place], [place] [address] [place] Creatinine [Mass/Vol] 1.59 mg/dL High 0.73-1.22 [facility] Comment on above: Order Comment: Gabriel martin Type: BLOOD SPECIMEN Ordering Facility: [facility] Address: [address] [place] [address] Performed By: #### 1 1253-2 #### [facility] CLIA [id number] [address] [place] [address] [place] Creatinine and Glomerular filtration rate.predicted panel (S/P/Bld) 51 mL/min/1.73m??? Low >=60 [facility] Comment on above: Order Comment: Gabriel martin Type: BLOOD SPECIMEN Ordering Facility: [facility] Address: [address] [place] [address] Result Comment: Candace mated Glomerular Filtration Rate [...] GFR. Performed By: #### 1 1253-2 #### [facility] CLIA [id number] [address] [place] [address] [place] Glucose [Mass/Vol] 488 mg/dL High 74-99 [facility] Comment on above: Order Comment: Gabriel martin Type: BLOOD SPECIMEN Ordering Facility: [facility] Address: [address] [place] [address] Result Comment: The [place] Diabetes Association (ADA) provides guidance for cutoff [...] Standards of Medical Care in Diabetes 2016, [place] Diabetes Association. Diabetes Care. 2016.39(Suppl 1). Performed By: #### 1 1253-2 #### [facility] CLIA [id number] [address] [place] [address] [place] Potassium [Moles/Vol] 5.0 mmol/L Normal 3.7-5.1 [facility] Comment on above: Order Comment: Speci men Type: BLOOD SPECIMEN Ordering Facility: [facility] Address: [address] [place] [address] Performed By: #### 1 1253-2 #### [facility] CLIA [id number] [address] [place] [address] [place] Protein [Mass/Vol] 6.5 g/dL Normal 6.3-8.0 [facility] Comment on above: Order Comment: Speci men Type: BLOOD SPECIMEN Ordering Facility: [facility] Address: [address] [place] [address] Performed By: #### 1 1253-2 #### [facility] CLIA [id number] [address] [place] [address] [place] Sodium [Moles/Vol] 131 mmol/L Low 136-144 [facility] Comment on above: Order Comment: Speci men Type: BLOOD SPECIMEN Ordering Facility: [facility] Address: [address] [place] [address] Performed By: #### 1 1253-2 #### [facility] CLIA [id number] [address] [place] [address] [place] Urea nitrogen [Mass/Vol] 25 mg/dL High 9-24 [facility] Comment on above: Order Comment: Speci men Type: BLOOD SPECIMEN Ordering Facility: [facility] Address: [address] [place] [address] Performed By: #### 1 1253-2 #### [facility] CLIA [id number] [address] [place] [address] [place] HbA1c (Bld)on 01-01-2025 Average glucose Estimated from glycated hemoglobin (Bld) [Mass/Vol] 260 mg/dL Normal [facility] Comment on above: Order Comment: Gabriel martin Type: BLOOD SPECIMEN Ordering Facility: [facility] Address: [address] [place] [address] Result Comment: eAG: (Estimated average glucose) is a calculated value from HgbA1c and is sales solutions representative of the average blood glucose level in the last 2-3 month period. Performed By: #### 1 1253-2 #### [facility] CLIA [id number] [address] [place] [address] STATES [place] [facility] HbA1c (Bld) [Mass fraction] 10.7 % High 4.3-5.6 [facility] Comment on above: Order Comment: Gabriel martin Type: BLOOD SPECIMEN Ordering Facility: [facility] Address: [address] [place] [address] Result Comment: Amer [place] Diabetes Association guidelines indicate that patients with HgbA1c in the range 5.7-6.4% are at increased risk for development of diabetes, and intervention by lifestyle modification may be beneficial. HgbA1c greater or equal to 6.5% is considered diagnostic of diabetes. Performed By: #### 1 1253-2 #### [facility] CLIA [id number] [address] [place] [address] [place] Lipid 1996 panelon 5 Cholesterol [Mass/Vol] 202 mg/dL High <200 [facility] Comment on above: Order Comment: Gabriel martin Type: BLOOD SPECIMEN Ordering Facility: [facility] Address: [address] [place] [address] Result Comment: <200 mg/dL, Desirable 200-239 mg/dL, Borderline high >239 mg/dL, High Performed By: #### 1 1253-2 #### [facility] CLIA [id number] [address] [place] [address] [place] Cholesterol in HDL [Mass/Vol] 48 mg/dL Normal >39 [facility] Comment on above: Order Comment: Gabriel martin Type: BLOOD SPECIMEN Ordering Facility: [facility] Address: [address] [place] [address] Result Comment: 40-5 9 mg/dL, Acceptable >59 mg/dL, High: Negative risk factor for coronary heart disease <40 mg/dL, Low: Positive risk factor for coronary heart disease Performed By: #### 1 1253-2 #### [facility] CLIA [id number] [address] [place] [address] [place] Cholesterol in LDL [Mass/Vol] 120 mg/dL High <100 [facility] Comment on above: Order Comment: Gabriel martin Type: BLOOD SPECIMEN Ordering Facility: [facility] Address: [address] [place] [address] Result Comment: <100 mg/dL, Optimal 100-129 mg/dL, Near optimal/above optimal 130-159 mg/dL, Borderline high 160-189 mg/dL, High >189 mg/dL, Very high Secondary prevention optimal LDL Cholesterol levels are recommended to be <70 mg/dL LDL cholesterol is calculated using the Barnard-NIH equation. Performed By: #### 1 1253-2 #### [facility] IA [id number] [address] [place] [address] [place] [facility] Cholesterol in LDL/Cholesterol in HDL [Mass ratio] 2.50 {ratio} Normal <2.54 [facility] Comment on above: Order Comment: Gabriel mario Type: BLOOD SPECIMEN Ordering Facility: [facility] Address: [address] [place] [address] Result Comment: Claudine lopez: 1. National Cholesterol Education Program ATP III Guideline At-A-Glance Quick Desk Reference: National Heart, Lung, and Blood [place]. National Institutes of Health. 2001: NIH Publication No. 01-3305. 2. An International Atherosclerosis Society position paper: global recommendations for the management of dyslipidemia: executive summary, Atherosclerosis. 2014: 232(2):410-413. Performed By: #### 1 1253-2 #### [facility] CLIA [id number] [address] [place] [address] [place] Cholesterol in VLDL [Mass/Vol] 33 mg/dL High <30 [facility] Comment on above: Order Comment: Speci men Type: BLOOD SPECIMEN Ordering Facility: [facility] Address: [address] [place] [address] Performed By: #### 1 1253-2 #### [facility] CLIA [id number] [address] [place] [address] [place] Cholesterol non HDL [Mass/Vol] 154 mg/dL High <130 [facility] Comment on above: Order Comment: Speci men Type: BLOOD SPECIMEN Ordering Facility: [facility] Address: [address] [place] [address] Result Comment: <130 mg/dL, Optimal 130-159 mg/dL, Near optimal/above optimal 160-189 mg/dL, Borderline high 190-219 mg/dL, High >219 mg/dL, Very high Secondary prevention optimal non HDL Cholesterol levels are recommended to be <100 mg/dL Performed By: #### 1 1253-2 #### [facility] CLIA [id number] [address] [place] [address] [place] Cholesterol.total/Choles terol in HDL [Mass ratio] 4.21 {ratio} Normal <5.10 [facility] Comment on above: Order Comment: Speci men Type: BLOOD SPECIMEN Ordering Facility: [facility] Address: [address] [place] [address] Performed By: #### 1 1253-2 #### [facility] CLIA [id number] [address] [place] [address] [place] FASTING TIME 14 hrs Normal [facility] Comment on above: Order Comment: Speci men Type: BLOOD SPECIMEN Ordering Facility: [facility] Address: [address] [place] [address] Performed By: #### 1 1253-2 #### [facility] CLIA [id number] [address] [place] [address] [place] Triglyceride [Mass/Vol] 192 mg/dL High <150 [facility] Comment on above: Order Comment: Speci men Type: BLOOD SPECIMEN Ordering Facility: [facility] Address: [address] [place] [address] Result Comment: <150 mg/dL, Normal 150-199 mg/dL, Borderline high 200-499 mg/dL, High >499 mg/dL, Very high Performed By: #### 1 1253-2 #### [facility] CLIA [id number] [address] [place] [address] [place] TSH SerPl-aCncon 01-01-2025 TSH Qn 0.779 m[IU]/L Normal 0.270-4.200 [facility] Comment on above: Order Comment: Speci men Type: BLOOD SPECIMEN Ordering Facility: [facility] Address: [address] [place] [address] Performed By: #### 1 1253-2 #### [facility] IA [id number] [address] [place] [address] [place] CNOVon 12-30-2024 CNOV Office Visit (INTMWS ) ITALO BURGOS ([id number]) 1970 M Date Time Provider Department 12/30/24 4:20 PM DELIA KAUFMAN During your visit today, we recorded the following information about you: Pulse Respiration Blood pressure Weight 94/minute 16/minute 118/68 79.8 kg 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 APRN.[employer]IM[employer] 12/30/2024 5:44 PM Signed CC: Patient presents [...] [facility] be [facility] to be [...] over a year ago. Needs to call [facility] to schedule. 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 Depression Detached retina DM type 2, goal HbA1c < 7% ([facility]) Erectile dysfunction, unspecified erectile dysfunction type ESRD [...] SHUNT FOR DIALYSIS Right 08/08/2018 Done at [facility] by Satish Phan MD CHOLECYSTECTOMY 1998 Cholecystectomy COLONOSCOPY 12/04/2018 COLONOSCOPY SCREENING 04/01/2024 CYSTO W/COMPLEX REMOVAL STONE AND STENT 1999 EGD 12/04/2018 EGD W/O [facility] SPEC VARICIES INJ 04/01/2024 PAST SURGICAL HISTORY [...] cap in pm Blood-Glucose Meter,Continuous (DEXCOM G6 ATTENDANT CHILD ACTIVITY) misc 1 Each continuous. Blood-Glucose Sensor (DEXCOM [...] MUST g (more content not included)... Normal [facility] Urine Cultureon 11-21-2024 URC Below infection leve l. Mixed Gram Positive Organisms [place] Count 1000-10,000 MIXC Mixed contaminants. Submit a new specimen if indicated. Normal [facility] Comment on above: Performed By: #### L 501.080 #### [facility] [address] [place], [address] 12 Lead EKGon 11-19-2024 12 Lead EKG [facility] [address] [place] [address] 12 Lead EKG 11/19/24 1417 MR#: [id number] Acct: [id number] Name: ITALO BURGOS Rep #: [id number] : 1970 53 From: Symone Albarado MD [...] ECG Confirmed by NARGIS NORTON, NICOLLE ([id number]), senior editor JEANETTE MARQUEZ ([id number]) on 11/23/2024 10:57:26 AM Referred By: Yony Solis Confirmed By: NICOLLE ALBARADO MD 11/23/24 1057 Date Symone Albarado MD CC: Dr. Zaida Gaston MD; Dr. Yony Solis, DO Signed Normal [facility] Absolute lymphocyte countOrd ered By: Yony Solis on 11-19-2024 Lymphocytes Auto (Unsp spec) [#/Vol] 1.05 10*3/uL 0.83-4.51 [facility] Absolute neutrophil countOrd ered By: Yony Solis on 11-19-2024 Neutrophils (Bld) [#/Vol] 6.9 10*3/uL 2.0-7.7 [facility] Anion gap in Serum or Plasma Ordered By: Yony Solis on 11-19-2024 Anion gap [Moles/Vol] 16 mmol/L High 5-15 [facility] Automated lymphocyte count a s percentage of total leukocytesOrdered By: Yony Solis on 11-19-2024 Lymphocytes/100 WBC Auto (Unsp spec) 11.9 % Low 19-41 [facility] BUN/creatinine ratioOrdered By: Yony Solis on 11-19-2024 Urea nitrogen/Creatinine [Mass ratio] 15.5 mg/mg 10-20 [facility] Basic Metabolic Profile (BMP )on 11-19-2024 BUN/CRE 15.5 RATIO Normal 10-20 [facility] Comment on above: Performed By: #### L 500.2500 #### [facility] [address] [facility] [address] Calcium [Mass/Vol] 10.1 mg/dL Normal 7.6-11.0 [facility] Comment on above: Performed By: #### L 500.2500 #### [facility] [address] [place], [address] Chloride [Moles/Vol] 104 mmol/L Normal 98-108 [facility] Comment on above: Performed By: #### L 500.2500 #### [facility] [address] [facility] [place], [address] CO2 [Moles/Vol] 19.3 mmol/L Low 21.0-32.0 [facility] Comment on above: Performed By: #### L 500.2500 #### [facility] [address] [place], [address] Creatinine [Mass/Vol] 2.11 mg/dL High 0.70-1.20 [facility] Comment on above: Performed By: #### L 500.2500 #### [facility] [address] [place], [address] ECRCL 42.01 ml/min Low 50-250 [facility] Comment on above: Performed By: #### L 500.2500 #### [facility] [address] [place], [address] GAP 16 High 5-15 [facility] Comment on above: Performed By: #### L 500.2500 #### [facility] [address] [place], [address] GFR/1.73 sq M.predicted among non-blacks MDRD (S/P/Bld) [Vol rate/Area] 36 mL/min/{1.73_m2} Low >60 [facility] Comment on above: Result Comment: mL/m in/1.73m2 CKD-EPI Creatinine Equation (2020) Performed By: #### L 500.2500 #### [facility] [address] [place], [address] Glucose [Mass/Vol] 279 mg/dL High 70-99 [facility] Comment on above: Performed By: #### L 500.2500 #### [facility] [address] [place], [address] Potassium [Moles/Vol] 4.9 mmol/L Normal 3.3-5.1 [facility] Comment on above: Performed By: #### L 500.2500 #### [facility] [address] [place], [address] Sodium [Moles/Vol] 139 mmol/L Normal 133-145 [facility] Comment on above: Performed By: #### L 500.2500 #### [facility] [address] [place], [address] Urea nitrogen [Mass/Vol] 33 mg/dL High 4-19 [facility] Comment on above: Performed By: #### L 500.2500 #### [facility] [address] [place], [address] Basophil percentageOrdered B y: Yony Solis on 11-19-2024 Basophils/100 WBC (Bld) 0.5 % 0-1 [facility] Bilirubin Test strip Ql (U)O rdered By: Yony Solis on 11-19-2024 Bilirubin Ql (U) Negative Negative [facility] CBC W/Diff, Automatedon 11-07-2024 Absolute Lymph 1.05 X10 3/uL Normal 0.83-4.51 [facility] Comment on above: Performed By: #### L 500.2500 #### [facility] [address] [place], [address] Absolute Neut 6.9 X10 3/uL Normal 2.0-7.7 [facility] Comment on above: Performed By: #### L 500.2500 #### [facility] [address] [place], [address] Basophils/100 WBC (Bld) 0.5 % Normal 0-1 [facility] Comment on above: Performed By: #### L 500.2500 #### [facility] [address] [place], [address] Eosinophils/100 WBC (Bld) 0.2 % Normal 0-5 [facility] Comment on above: Performed By: #### L 500.2500 #### [facility] [address] [place], [address] Erythrocyte distribution width (RBC) [Ratio] 12.0 % Normal 11.6-14.6 [facility] Comment on above: Performed By: #### L 500.2500 #### [facility] [address] [place], [address] Hematocrit (Bld) [Volume fraction] 51.2 % Normal 40-54 [facility] Comment on above: Performed By: #### L 500.2500 #### [facility] [address] [place], [address] Hemoglobin (Bld) [Mass/Vol] 17.7 g/dL High 13.0-16.5 [facility] Comment on above: Performed By: #### L 500.2500 #### [facility] [address] [place], [address] IG% 0.300 Normal 0.0-0.9 [facility] Comment on above: Result Comment: IG% - Immature Granulocytes (promyelocytes, myelocytes and metamyelocytes) > 1% indicates that a LEFT SHIFT is Present. Performed By: #### L 500.2500 #### [facility] [address] [place], [address] Lymphocytes/100 WBC (Bld) 11.9 % Low 19-41 [facility] Comment on above: Performed By: #### L 500.2500 #### [facility] [address] [place], [address] MCH (RBC) [Entitic mass] 31.3 pg Normal 27.0-32.0 [facility] Comment on above: Performed By: #### L 500.2500 #### [facility] [address] [place], [address] MCHC (RBC) [Mass/Vol] 34.6 g/dL Normal 32-36 [facility] Comment on above: Performed By: #### L 500.2500 #### [facility] [address] [place], [address] MCV (RBC) [Entitic vol] 90.6 fL Normal 80-94 [facility] Comment on above: Performed By: #### L 500.2500 #### [facility] [address] [place], [address] Monocytes/100 WBC (Bld) 9.2 % Normal 0-10 [facility] Comment on above: Performed By: #### L 500.2500 #### [facility] [address] [place], [address] Neutrophils/100 WBC (Bld) 77.9 % High 47-70 [facility] Comment on above: Performed By: #### L 500.2500 #### [facility] [address] [place], [address] Nucleated RBC (Bld) [#/Vol] 0 10*3/uL Normal 0-5 [facility] Comment on above: Performed By: #### L 500.2500 #### [facility] [address] [place], [address] Platelet mean volume (Bld) [Entitic vol] 9.9 fL Normal 6.2-12.0 [facility] Comment on above: Performed By: #### L 500.2500 #### [facility] [address] [place], [address] Platelets (Bld) [#/Vol] 231 10*3/uL Normal 150-450 [facility] Comment on above: Performed By: #### L 500.2500 #### [facility] [address] [place], [address] RBC (Bld) [#/Vol] 5.65 10*6/uL Normal 4.6-6.2 [facility] Comment on above: Performed By: #### L 500.2500 #### [facility] [address] [place], [address] RDW SD 39.8 fl Normal 35.1-43.9 [facility] Comment on above: Performed By: #### L 500.2500 #### [facility] [address] [place], [place], [address] WBC (Bld) [#/Vol] 8.8 10*3/uL Normal 4.4-11.0 [facility] Comment on above: Performed By: #### L 500.2500 #### [facility] [address] [place], [address] Carbon dioxide, total [Moles /volume] in Central venous bloodOrdered By: Yony Solis on 11-19-2024 CO2 [Moles/Vol] 19.3 mmol/L Low 21.0-32.0 [facility] Chloride assayOrdered By: Aldair Solis on 11-19-2024 Chloride [Moles/Vol] 104 mmol/L 98-108 [facility] Emergency Department Summary on 11-19-2024 Emergency Department Summary [facility] Medical Records Department [address] [place] [address] Emergency Department Summary 11/19/24 MR#: [id number] Acct: [id number] Name: ITALO BURGOS Rep #: [id number] : 1970 53 From: Yony Underwood PCP: [...] ago on immunosuppressants. He is followed by [facility]. He has not had similar symptoms [...] ([facility]) ( 06/26/11) Atherosclerotic heart disease of [place] coronary artery without angina pectoris Essential [...] of dialy (more content not included)... Normal [facility] Eosinophil percentageOrdered By: Yony Solis on 11-19-2024 Eosinophils/100 WBC (Bld) 0.2 % 0-5 [facility] Epithelial cells.squamous LM Ql (Urine sed)Ordered By: Yony Solis on 11-19-2024 Epithelial cells.squamous LM.HPF (Urine sed) [#/Area] 0 /[HPF] 0-5 [facility] Erythrocyte distribution wid th ratioOrdered By: Yony Solis on 11-19-2024 Erythrocyte distribution width (RBC) [Ratio] 12.0 % 11.6-14.6 [facility] Erythrocyte distribution wid th standard deviationOrdered By: Yony Solis on 11-19-2024 Erythrocyte distribution width (RBC) [Entitic vol] 39.8 fL 35.1-43.9 [facility] Erythrocyte distribution width (RBC) [Ratio] 39.8 fl 35.1-43.9 [facility] Estimation of creatinine minnie aranceOrdered By: Yony Solis on 11-19-2024 Estimated Creatinine Clearance Calc 42.01 ml/min Low 50-250 [facility] GFR/1.73 sq M.predicted pete g non-blacks MDRD (S/P/Bld) [Vol rate/Area]Ordered By: Yony Solis on 11-19-2024 Estimated GFR (MDRD) Non-Af Amer 36 Low >60 [facility] Comment on above: mL/min/1.73m2 CKD-EP I Creatinine Equation (2020) Glomerular filtration rate ( GFR) estimation/1.73 sq m using serum, plasma, or whole bOrdered By: Yony Solis on 11-19-2024 GFR/1.73 sq M.predicted among non-blacks MDRD (S/P/Bld) [Vol rate/Area] 36 mL/min/{1.73_m2} Low >60 [facility] Comment on above: mL/min/1.73m2 CKD-EP I Creatinine Equation (2020) Glucose Ql (U)Ordered By: Aldair Solis on 11-19-2024 Glucose (U) [Mass/Vol] 1000 mg/dL High Normal [facility] Hematocrit Auto (Bld) [Volum e fraction]Ordered By: Yony Solis on 11-19-2024 Hematocrit (Bld) [Volume fraction] 51.2 % 40-54 [facility] Hemoglobin measurementOrdere d By: Yony Solis on 11-19-2024 Hemoglobin (Bld) [Mass/Vol] 17.7 g/dL High 13.0-16.5 [facility] Hyaline casts LM.LPF (Urine sed) [#/Area]Ordered By: Yony Solis on 11-19-2024 Hyaline casts (Urine sed) [#/Area] 0 /[LPF] 0-5 [facility] Hyaline casts LM Ql (Urine sed) 0-5 SEEN /lpf 0-5 [facility] Immature granulocytes/100 WB C Auto (Bld)Ordered By: Yony Solis on 11-19-2024 Immature granulocytes/100 WBC (Bld) 0.300 % 0.0-0.9 [facility] Comment on above: IG% - Immature Granu locytes (promyelocytes, myelocytes and metamyelocytes) > 1% indicates that a LEFT SHIFT is Present. Ketones Test strip Ql (U)Ord ered By: Yony Solis on 11-19-2024 Ketones Ql (U) Negative Negative [facility] Lymphocytes Auto (Unsp spec) [#/Vol]Ordered By: Yony Solis on 11-19-2024 Lymphocytes (Bld) [#/Vol] 1.05 10*3/uL 0.83-4.51 [facility] Lymphocytes/100 WBC Auto (Un sp spec)Ordered By: Yony Solis on 11-19-2024 Lymphocytes/100 WBC (Bld) 11.9 % Low 19-41 [facility] MCV (mean corpuscular volume ) determinationOrdered By: Yony Solis on 11-19-2024 MCV (RBC) [Entitic vol] 90.6 fL 80-94 [facility] Mean corpuscular hemoglobin (MCH) determinationOrdered By: Yony Solis on 11-19-2024 MCH (RBC) [Entitic mass] 31.3 pg 27.0-32.0 [facility] Mean corpuscular hemoglobin concentration (MCHC) determinationOrdered By: Yony Solis on 11-19-2024 MCHC (RBC) [Mass/Vol] 34.6 g/dL 32-36 [facility] Mean platelet volume determi nationOrdered By: Yony Solis on 11-19-2024 Platelet mean volume (Bld) [Entitic vol] 9.9 fL 6.2-12.0 [facility] Microscopic analysis of urin e for red blood cells (RBC)Ordered By: Yony Solis on 11-19-2024 Microscopic analysis of urine for red blood cells (RBC) 10-25 SEEN /hpf 0-5 [facility] Urine RBC 10-25 SEEN /hpf 0-5 [facility] Monocyte percentageOrdered B y: Yony Solis on 11-19-2024 Monocytes/100 WBC (Bld) 9.2 % 0-10 [facility] Mucus LM Ql (Urine sed)Order ed By: Yony Solis on 11-19-2024 Mucus Ql (Urine sed) 0 SEEN /hpf [facility] Neutrophil percentageOrdered By: Yony Solis on 11-19-2024 Neutrophils/100 WBC (Bld) 77.9 % High 47-70 [facility] Nitrite Test strip Ql (U)Ord ered By: Yony Solis on 11-19-2024 Nitrite Ql (U) Negative Negative [facility] Nucleated red blood cell per centageOrdered By: Yony Solis on 11-19-2024 Nucleated RBC/100 WBC (Bld) [Ratio] 0 % 0-5 [facility] Platelet countOrdered By: Aldair Solis on 11-19-2024 Platelets (Bld) [#/Vol] 231 10*3/uL 150-450 [facility] Potassium (Unsp spec) [Mass/ Vol]Ordered By: Yony Solis on 11-19-2024 Potassium [Moles/Vol] 4.9 mmol/L 3.3-5.1 [facility] Potassium measurement (mass/ volume)Ordered By: Yony Solis on 11-19-2024 Potassium (Unsp spec) [Mass/Vol] 4.9 mmol/L 3.3-5.1 [facility] Protein Test strip Ql (U)Ord ered By: Yony Solis on 11-19-2024 Protein Ql (U) 30 mg/dl High Negative [facility] RBC Auto (Bld) [#/Vol]Ordere d By: Yony Solis on 11-19-2024 RBC (Bld) [#/Vol] 5.65 10*6/uL 4.6-6.2 [facility] Serum creatinine measurement (mass/volume)Ordered By: Yony Solis on 11-19-2024 Creatinine [Mass/Vol] 2.11 mg/dL High 0.70-1.20 [facility] Serum glucose measurement (m ass/volume)Ordered By: Yony Solis on 11-19-2024 Glucose [Mass/Vol] 279 mg/dL High 70-99 [facility] Serum or plasma calcium regi urement (mass/volume)Ordered By: Yony Solis on 11-19-2024 Calcium [Mass/Vol] 10.1 mg/dL 7.6-11.0 [facility] Serum or plasma urea nitroge n measurement (mass/volume)Ordered By: Yony Solis on 11-19-2024 Urea nitrogen [Mass/Vol] 33 mg/dL High 4-19 [facility] Sodium levelOrdered By: Yony Solis on 11-19-2024 Sodium [Moles/Vol] 139 mmol/L 133-145 [facility] Squamous epithelial cells de tection in urine sediment by light microscopyOrdered By: Yony Solis on 11-19-2024 Epithelial cells.squamous LM Ql (Urine sed) 0-5 SEEN /hpf 0-5 [facility] Urinalysis, Complete[place] 11-19 CAST,HYALINE 0-5 SEEN Normal 0-5 [facility] Comment on above: Order Comment: CLEAN CATCH Performed By: #### L 400.0001 #### [facility] [address] [place], [address] EPI,SQUAMOUS 0-5 SEEN Normal 0-5 [facility] Comment on above: Order Comment: CLEAN CATCH Performed By: #### L 400.0001 #### [facility] [address] [place], [address] RBC 10-25 SEEN Normal 0-5 [facility] Comment on above: Order Comment: CLEAN CATCH Performed By: #### L 400.0001 #### [facility] [address] [place], [address] WBC 0-5 SEEN Normal 0-5 [facility] Comment on above: Order Comment: CLEAN CATCH Performed By: #### L 400.0001 #### [facility] [address] [place], [address] BACTERIA 0 SEEN Normal None Seen [facility] Comment on above: Order Comment: CLEAN CATCH Performed By: #### L 400.0001 #### [facility] [address] [place], [address] Mucus Ql (Urine sed) 0 SEEN Normal [facility] Comment on above: Order Comment: CLEAN CATCH Performed By: #### L 400.0001 #### [facility] [address] [place], [address] Urine blood detectionOrdered By: Yony Solis on 11-19-2024 Urine Occult Blood 250 /ul High Negative [facility] Urine clarityOrdered By: Brien Solis on 11-19-2024 Clarity (U) Clear Clear [facility] Urine color determinationOrd ered By: Yony Solis on 11-19-2024 Color (U) Yellow Yellow [facility] Urine cultureOrdered By: Brien Solis on 11-19-2024 Bacteria identified Cx Nom (U) Positive Abnormal [facility] Urine glucose detectionOrder ed By: Yony Solis on 11-19-2024 Glucose Ql (U) 1000 mg/dl High Normal [facility] Urine leukocyte esterase det ection by dipstickOrdered By: Yony Solis on 11-19-2024 Leukocyte esterase Test strip Ql (U) 25 /ul High Negative [facility] Urine pHOrdered By: Yony Solsi on 11-19-2024 pH (U) 6.0 [pH] 5.0 - 8.0 [facility] Urine sediment bacteria coun t by microscopy (number/high power field)Ordered By: Yony Solis on 11-19-2024 Bacteria LM.HPF (Urine sed) [#/Area] 0 /[HPF] None Seen [facility] Urine specific gravity measu rementOrdered By: Yony Solis on 11-19-2024 Specific gravity (U) [Rel density] 1.015 1.002-1.030 [facility] Urine urobilinogen measureme ntOrdered By: Yony Solis on 11-19-2024 Urobilinogen Ql (U) Normal mg/dl Normal [facility] Urobilinogen Ql (U)Ordered B y: Yony Solis on 11-19-2024 Urine Urobilinogen Normal mg/dl Normal [facility] White blood cell (WBC) count Ordered By: Yony Solis on 11-19-2024 WBC (Bld) [#/Vol] 8.8 10*3/uL 4.4-11.0 [facility] White blood cell countOrdere d By: Yony Solis on 11-19-2024 Urine WBC 0-5 SEEN /hpf 0-5 [facility] White blood cell count 0-5 SEEN /hpf 0-5 [facility] CNOVon 09-28-2024 CNOV Office Visit (INTMWS ) ITALO BURGOS ([id number]) 1970 M Date Time Provider Department 09/28/24 [...] Diagnosis Date Acute diastolic (congestive) heart failure ([facility]) Bronchitis Chronic kidney failure, stage 4 (severe) ([facility]) 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 ([facility]) 12/16/2018 Depression Detached retina DM type 2, goal HbA1c < 7% ([facility]) Erectile dysfunction, unspecified erectile dysfunction type ESRD (end stage renal disease) ([facility]) GERD (gastroesophageal reflux disease) Hyperlipidemia Kidney replaced by transplant Kidney stones LUANNE (obstructive sleep apnea) PNA (pneumonia) Proliferative retinopathy 02/10/2019 PTE (post-transplant erythrocytosis) Snoring Unspecified essential hypertension Vitamin D deficiency Vitamin D deficiency PAST SURGICAL HISTORY Procedure Laterality Date AMPUTATION TOE,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 Normal [facility] Endocrinology Visit Reporton 07-28-2024 Endocrinology Visit Report [facility] [address] [place] [address] OFFICE VISIT Date of Service: 07/28/24 MR#: [id number] Acct: [id number] Name: LORETTAITALO Mery Rep #: [id number] : 1970 Provider: Silvano Cuellar Age/Sex: 53/M Location: [facility] Status: Signed Intake Vital Signs 04/30/24 09:57 [...] 07/17/24 07/28/24 Rx subcutaneous pen injector (dulaglutide) [facility] Medical History Congestive heart failure (CHF) [...] (LHC) ( 06/26/11) Atherosclerotic heart disease of [place] coronary artery without angina pectoris Essential [...] a 53 (more content not included)... Normal [facility] - Hematology and Cell countson 07-28-2024 HbA1c (Bld) [Mass fraction] 8.5 % High 4.2-6.3 [facility] 06-23-2024 BANNER Telephone (TXCTGL) ITALO BURGOS ([id number]) 1970 Silvano Date Time Provider Department 06/23/24 AMANDA HAYES TXANDREI During your visit today, we recorded the following information about you: Amanda Hayes LISW 06/23/2024 11:10 AM Signed SW returned pt's phone call. Pt stated his Envarsus went to $92 a month. Pt reports he still has [facility] Dual (Medicare AND Medicaid) and he is not sure why his copay went up. SW informed pt that they can apply for assistance for envarsus via [employer]. ADDY emailed pt his portion of the envarsus application, as well as a 30 day copay card. SW will work on her portion of the application. Pt denies any other questions/concerns at this time. Pt has SW contact information for any future questions/concerns. SARA [facility] Model Allergies As of Date: 06/23/2024 (No Known Allergies) Date Reviewed: 06/18/2024 Reviewed by: Deep Hanson LPN - Fully Assessed Reason for Visit: Follow Up [171] Prescriptions as of 06/23/2024 - tacrolimus IR (PROGRAF) 1 mg capsule Take 2 caps in am and 1 cap in pm - Blood-Glucose Meter,Continuous (DEXCOM G6 ATTENDANT CHILD ACTIVITY) misc 1 Each continuous. - Blood-Glucose Sensor [...] Units subcutaneously daily at bedtime. - Insulin Dryden, Disposable, (BD ULTRA-FINE SANDRA PEN NEEDLE) 32 [...] 3 mg/actuation nasal spray (BAQSIMI) Use 1 [place] in the nose as needed for low [...] polyneuropathy associa (more content not included)... Normal [facility] CNOVon 06-18-2024 CNOV Office Visit (INTMWS ) ITALO BURGOS ([id number]) 1970 M Date Time Provider Department 06/18/24 [...] Diagnosis Date Acute diastolic (congestive) heart failure ([facility]) Bronchitis Chronic kidney failure, stage 4 (severe) ([facility]) 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 ([facility]) 12/16/2018 Depression Detached retina DM type 2, goal HbA1c < 7% ([facility]) Erectile dysfunction, unspecified erectile dysfunction type ESRD (end stage renal disease) ([facility]) GERD (gastroesophageal reflux disease) Hyperlipidemia Kidney replaced by transplant Kidney stones LUANNE (obstructive sleep apnea) PNA (pneumonia) Proliferative retinopathy 02/10/2019 PTE (post-transplant erythrocytosis) Snoring Unspecified essential hypertension Vitamin D deficiency Vitamin D deficiency PAST SURGICAL HISTORY Procedure Laterality Date AMPUTATION TOE,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 Normal [facility] [place] 06-18-2024 ANDREWS Telephone (TXCTGL) ITALO BURGOS ([id number]) 1970 Silvano Date Time Provider Department 06/18/24 AMANDA HAYES TXCTGL During your visit today, we recorded the following information about you: Amanda Hayes LISW 06/18/2024 11:38 AM Signed ADDY attempted to call pt per request of [employer] regarding possible copay issues for Envarsus. In reviewing pt's chart is appears that pt has [facility] Dual (Medicare AND Medicaid.) ADDY attempted to contact pt and SW left a message. SW will await return phone call. SARA [employer] Model Allergies As of Date: 06/18/2024 (No Known Allergies) Date Reviewed: 06/18/2024 Reviewed by: Deep Hanson LPN - Fully Assessed Reason for Visit: Follow Up [171] Prescriptions as of 06/18/2024 - tacrolimus IR (PROGRAF) 1 mg capsule Take 2 caps in am and 1 cap in pm - Blood-Glucose Meter,Continuous (DEXCOM G6 ATTENDANT CHILD ACTIVITY) misc 1 Each continuous. - Blood-Glucose Sensor [...] for every 40 >180 mg/dL) - Insulin Dryden, Disposable, (BD ULTRA-FINE SANDRA PEN NEEDLE) 32 [...] 3 mg/actuation nasal spray (BAQSIMI) Use 1 [place] in the nose as needed for low [...] classified [*0 (more content not included)... Normal [facility] HEMOGLOBIN A1C (POC)on 06-18 HbA1c (Bld) [Mass fraction] 7.1 % Abnormal 4.3 - 5.6 % [facility] Comment on above: Location:[facility], [address] [place] [address], [place], [address] Point of care (POC) Hemoglobin A1c (HGBA1C) [...] specific diabetes management situations: The POC device caseworker intake provides a normal range of 4.2% to 6.5% for the HGBA1C POC test. However, the [employer] guidelines indicate that patients with [...] and review of laboratory results Abnormal [facility] CNPNon 06-16-2024 CNPN Telephone (TXCTGL) ITALO BURGOS ([id number]) 1970 M Date Time Provider Department 06/16/24 KIDNEY TXP COORDINATORS [facility] During your visit today, we recorded the following information about you: Ramya Hernandez 06/16/2024 12:35 PM Signed Patient called regarding his Envarsus, He has been out for a week. His insurance is telling him it is a tier 4 medication and it is $100 of which he cannot afford. . Requesting a return call from the health coordinator. Please call Italo at [phone]. Allergies As of Date: 06/16/2024 (No Known Allergies) Date Reviewed: 04/01/2024 Reviewed by: Nga Ford, ANDER - Fully Assessed Prescriptions as of 06/18/2024 - tacrolimus IR (PROGRAF) 1 mg capsule Take 2 caps in am and 1 cap in pm - Blood-Glucose Meter,Continuous (DEXCOM G6 ATTENDANT CHILD ACTIVITY) misc 1 Each continuous. - Blood-Glucose Sensor [...] Units subcutaneously daily at bedtime. - Insulin Dryden, Disposable, (BD ULTRA-FINE SANDRA PEN NEEDLE) 32 [...] 3 mg/actuation nasal spray (BAQSIMI) Use 1 [place] in the nose as needed for low [...] instability [R (more content not included)... [facility] ([id number]) 1970 M Date Time Provider Department 06/16/24 ALANA KENT TXCTGL During your visit today, we recorded the following information about you: Alana Kent APRN.CNP 06/16/2024 1:34 PM Signed Pt called stating he has been out of Envarsus x 1 week and is unable to afford co-pay. Will try switching to tacrolimus temporarily and discuss with social studies teacher if pt is eligible for patient assistance. Pt currently on 2.25 mg Envarsus will start tac 10/10 Alana Kent APRN.[employer]' Allergies As of Date: 06/16/2024 (No Known [...] in pm - Blood-Glucose Meter,Continuous (DEXCOM G6 ATTENDANT CHILD ACTIVITY) misc 1 Each continuous. - Blood-Glucose Sensor [...] for every 40 >180 mg/dL) - Insulin Dryden, Disposable, (BD ULTRA-FINE SANDRA PEN NEEDLE) 32 [...] 3 mg/actuation nasal spray (BAQSIMI) Use 1 [place] in the nose as needed for low [...] 140/90 * (more content not included)... Normal [facility] Endocrinology Visit Reporton 04-30-2024 Endocrinology Visit Report [facility] [address] [place] [address] OFFICE VISIT Date of Service: 04/30/24 MR#: [id number] Acct: [id number] Name: ITALO BURGOS Rep #: [id number] : 1970 Provider: Silvano Cuellar Age/Sex: 53/M [facility] Status: Signed Intake [...] 1 M FU Chief Complaint: f/u diabetes Dye Beck Reel Operator Required: No Accompanied by: Self Is patient [...] #42 mL pen (Humalog Mix 50-50 KwikPen) [facility] Medical History Congestive heart failure (CHF) [...] (LHC) ( 06/26/11) Atherosclerotic heart disease of [place] coronary artery without angina pectoris Essential [...] Complaint: f/u (more content not included)... Normal [facility] ANES POSTPROC EVALon 024 ANES POSTPROC EVAL HNO ID: [id number] Author: AMARA SLOAN DO Service: Anesthesiology Author Type: Anesthesiologist Type: Anesthesia Postprocedure Evaluation Filed: 04/01/2024 18:23 Note Text: POST ANESTHESIA EVALUATION NOTE : 1970 Procedure Summary Date: 04/01/24 Room / Location: [facility] Endoscopy Anesthesia Start: 1214 Anesthesia Stop: 1253 Procedures: EGD DIAGNOSTIC COLONOSCOPY DIAGNOSTIC Diagnosis: Diarrhea, unspecified type (Established gastro-esophageal reflux disease) (High risk colon cancer surveillance: Personal history of colonic polyps) Scheduled Providers: Lali Raman MD; Dasha Lux APRN.GERIATRIC NURSING ASSISTANT; Amara Sloan DO Responsible Provider: Amara Sloan [...] April 01, 2024 TIME: 6:23 PM CSN: [id number] Normal [facility] ANES PRE-OPon 04-01-2024 ANES PRE-OP HNO ID: [id number] Author: AMARA SLOAN DO Service: Anesthesiology Author Type: Anesthesiologist Type: Anesthesia Preprocedure Evaluation Filed: 04/01/2024 11:41 Note Text: ANESTHESIOLOGY DAY OF SURGERY NOTE : 1970 Procedure Information Date/Time: 04/01/24 1230 Scheduled providers: Lali Raman MD; Dasha Lux APRN.GERIATRIC NURSING ASSISTANT; Amara Sloan DO Procedures: EGD DIAGNOSTIC COLONOSCOPY DIAGNOSTIC Location: [facility] Endoscopy Estimated body mass index is [...] and consent discussed: yes. Patient / Responsible Republican agrees to proceed: yes Patient / Surrogate [...] units for every 40 >180 mg/dL) Insulin Dryden, Disposable, (BD ULTRA-FINE SANDRA PEN NEEDLE) 32 [...] 3 mg/actuation nasal spray (BAQSIMI) Use 1 [place] in the nose as needed for low blood sugar. May repeat after 15 minutes using a new device if th (more content not included)... Normal [facility] Colonoscopyon 04-01-2024 Colonoscopy [facility] Gastrointestinal Endoscopy Patient Name: Italo Burgos Procedure Date: 04/01/2024 12:26 PM Date of : 1970 Admit Type: Outpatient Age: 53 Room: [facility] Gender: Male Note Status: Finalized Attending MD: Lali Raman MD, [id number] Procedure: Colonoscopy - screening high risk Indications: [...] anesthesia care under the supervision of a GERIATRIC NURSING ASSISTANT was determined to be medically necessary for [...] previous diet. Procedure Code(s): --- Professional --- 50829, Colonoscopy, flexible; diagnostic, including collection of specimen(s) by brushing or washing, when performed (separate procedure) Diagnosis Code(s): --- Professional --- K64.8, Other hemorrhoids Z86.010, Personal history of colonic polyps Z12.11, Encounter for screening for malignant neoplasm of colon CPT copyright 2020 [employer]. All rights reserved. The codes documented in this report are preliminary and upon smoke tester review may be revised to meet current compliance requirements. Attending Participation: I personally performed the entire procedure. Scope In: 12:29:21 PM Scope Out: 12:46:56 PM MD Lali Guerra MD 04/01/2024 12:50:36 PM This report has been signed electronically by Lali Raman MD Number of Addenda: 0 Note Initiated On: 04/01/2024 12:26 PM Estimated Blood Loss: Estimated blood loss: none. Normal [facility] EGD Study observation [address] 04-01-2024 [facility] Gastrointestinal Endoscopy Patient Name: Italo Burgos Procedure Date: 04/01/2024 12:17 PM Date of : 1970 Admit Type: Outpatient Age: 53 Room: [facility] Gender: Male Note Status: Finalized Attending MD: Lali Raman MD, [id number] Procedure: Upper GI endoscopy Indications: Gastro-esophageal reflux disease Providers: Lali Raman MD Patient Profile: Refer to note in patient chart for documentation of history and physical. Referring Physician: Nia James (Referring ) Medicines: See the Anesthesia note for documentation of the administered medications Complications: No immediate complications. Requesting Provider: Procedure: Pre-Anesthesia Assessment: - Monitored anesthesia care under the supervision of a GERIATRIC NURSING ASSISTANT was determined to be medically necessary for [...] future endoscopies Procedure Code(s): --- Professional --- 76406, Esophagogastroduodenosc opy, flexible, transoral; with biopsy, single or multiple Diagnosis Code(s): --- Professional --- K21.9, Gastro-esophageal reflux disease without esophagitis K22.89, Other specified disease of esophagus K31.89, Other diseases of stomach and duodenum CPT copyright 2020 [employer]. All rights reserved. The codes documented in this report are preliminary and upon smoke tester review may be revised to meet current compliance requirements. Attending Participation: I personally performed the entire procedure. Scope In: 12:19:55 PM Scope Out: 12:24:39 PM MD Lali Guerra MD 04/01/2024 12:28:27 PM This report has been signed electronically by Lali Raman MD Number of Addenda: 0 Note Initiated On: 04/01/2024 12:17 PM Estimated Blood Loss: Estimated blood loss was minimal. PROVATION [facility] Radiology Study observation (narrative) [facility] Flexible sigmoidoscopy study on 04-01-2024 [facility] Gastrointestinal Endoscopy Patient Name: Italo Burgos Procedure Date: 04/01/2024 12:26 PM Date of : 1970 Admit Type: Outpatient Age: 53 Room: [facility] Gender: Male Note Status: Finalized Attending MD: Lali Raman MD, [id number] Procedure: Colonoscopy - screening high risk Indications: [...] anesthesia care under the supervision of a GERIATRIC NURSING ASSISTANT was determined to be medically necessary for [...] previous diet. Procedure Code(s): --- Professional --- 62234, Colonoscopy, flexible; diagnostic, including collection of specimen(s) by brushing or washing, when performed (separate procedure) Diagnosis Code(s): --- Professional --- K64.8, Other hemorrhoids Z86.010, Personal history of colonic polyps Z12.11, Encounter for screening for malignant neoplasm of colon CPT copyright 2020 [employer]. All rights reserved. The codes documented in this report are preliminary and upon smoke tester review may be revised to meet current compliance requirements. Attending Participation: I personally performed the entire procedure. Scope In: 12:29:21 PM Scope Out: 12:46:56 PM MD Lali Guerra MD 04/01/2024 12:50:36 PM This report has been signed electronically by Lali Raman MD Number of Addenda: 0 Note Initiated On: 04/01/2024 12:26 PM Estimated Blood Loss: Estimated blood loss: none. PROVATION [facility] Radiology Study observation (narrative) [facility] GLUCOSE, BLOOD (POC)on 04-01 Glucose [Mass/Vol] 162 mg/dL Abnormal 74 - 99 mg/dL [facility] Comment on above: Location:[facility], [facility] [place], [place], [facility] The Accu-Chek Inform II glucose meter [...] and review of laboratory results Abnormal [facility] Glucose [Mass/Vol] 174 mg/dL Abnormal 74 - 99 mg/dL [facility] Comment on above: Location:[facility], [address], [place], [address] The Accu-Chek Inform II glucose meter has [...] and review of laboratory results Abnormal [facility] HISTORY PHYSICALon HISTORY PHYSICAL HNO ID: [id number] Author: LALI RAMAN MD Service: General Surgery Author Type: Physician Type: H&P Filed: 04/01/2024 11:26 Note Text: HISTORY AND PHYSICAL Italo Burgos : 1970 REFERRING PHYSICIAN: 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 [address] [facility] [address] CHIEF COMPLAINT: Patient presents with: Consult: Colonoscopy [...] has type 2 diabetes he follows with [facility], last appointment was 12/2023. Diabetes is uncontrolled most recent hemoglobin A1c was 10.2. Italo followed up with endocrinology today his hemoglobin A1c was 10.1. Dr. Durand increased his Trulicity but he is unsure to what dose. Italo has undergone prior endoscopy. Last EGD AND colonoscopy in 11/[address] Raman at [facility] EGD Impression: - Normal esophagus. - [...] units for every 40 >180 mg/dL) Insulin [place], Disposable, (BD ULTRA-FINE SANDRA PEN NEEDLE) 32 [...] 3 mg/actuation nasal spray (BAQSIMI) Use 1 [place] in the nose as needed for low [...] cm of (more content not included)... Normal [facility] SURGICAL PATHOLOGYon 024 ADDENDUM 1: [facility] Comment on above: Order Comment: Speci men Type: TISSUE SPECIMEN Ordering Facility: [facility] Address: [address] [place] [address] Result Comment: Adde ndum is issued to reflect the result of immunohistochemical stain: - Immunostain for H. pylori is negative in part A. Addendum electronically signed by Brendan Dominguez MD, PhD on 04/08/2024 at 2:12 PM Performed By: #### S #### [facility] CLIA [id number] [address] [place] [address] [place] [address] [place] CASE REPORT [facility] Comment on above: Order Comment: Speci men Type: TISSUE SPECIMEN Ordering Facility: [facility] Address: [address] [place] [address] Result Comment: Surg ica Pathology Report Case: [id number] Authorizing Provider: Lali Raman MD Collected: 04/01/2024 12:22 PM Ordering Location: [facility] Endoscopy Received: 04/01/2024 02:05 PM Pathologist: Brendan Dominguez MD, PhD Specimens: A) - Stomach, Antrum, Biopsy, R/O H. Pylori B) - Esophagogastric Junction, Biopsy, R/O Barillas's Performed By: #### S #### [facility] CLIA [id number] [address] [place] [address] [place] FINAL DIAGNOSIS Normal [facility] Comment on above: Order Comment: Speci men Type: TISSUE SPECIMEN Ordering Facility: [facility] Address: [address] [place] [address] Result Comment: A. G astric antrum, biopsy: [...] or dysplasia. Performed By: #### S #### [facility] CLIA [id number] [address] [place] [address] OF [facility] FINAL PERFORMING LAB Normal [facility] Comment on above: Order Comment: Speci men Type: TISSUE SPECIMEN Ordering Facility: [facility] Address: [address] [place] [address] Result Comment: Diag nostic interpretation performed at [facility], [address] [place] [address] CLIA# [id number] Postal Superintendent: Kamran Brooks M.D. Performed By: #### S #### [facility] CLIA [id number] [address] [place] [address] [place] GROSS DESCRIPTION Normal [facility] Comment on above: Order Comment: Speci men Type: TISSUE SPECIMEN Ordering Facility: [facility] Address: [address], [place] [address] Result Comment: A. S tomach, Antrum, Biopsy [...] 2024 6:13 PM Gross examination performed at [facility], [address] [place] [address] Performed By: #### S #### [facility] CLIA [id number] [address] [place] [address] Upper GI endoscopyon 24-2 024 Upper GI endoscopy [facility] Gastrointestinal Endoscopy Patient Name: Italo Burgos Procedure Date: 04/01/2024 12:17 PM Date of : 1970 Admit Type: Outpatient Age: 53 Room: [facility] Gender: Male Note Status: Finalized Attending MD: Lali Raman MD, [id number] Procedure: Upper GI endoscopy Indications: Gastro-esophageal reflux disease Providers: Lali Raman MD Patient Profile: Refer to note in patient chart for documentation of history and physical. Referring Physician: Nia James (Referring MD) Medicines: See the Anesthesia note for documentation of the administered medications Complications: No immediate complications. Requesting Provider: Procedure: Pre-Anesthesia Assessment: - Monitored anesthesia care under the supervision of a GERIATRIC NURSING ASSISTANT was determined to be medically necessary for [...] future endoscopies Procedure Code(s): --- Professional --- 85101, Esophagogastroduodenosc opy, flexible, transoral; with biopsy, single or multiple Diagnosis Code(s): --- Professional --- K21.9, Gastro-esophageal reflux disease without esophagitis K22.89, Other specified disease of esophagus K31.89, Other diseases of stomach and duodenum CPT copyright 2020 [employer]. All rights reserved. The codes documented in this report are preliminary and upon smoke tester review may be revised to meet current compliance requirements. Attending Participation: I personally performed the entire procedure. Scope In: 12:19:55 PM Scope Out: 12:24:39 PM MD Lali Guerra MD 04/01/2024 12:28:27 PM This report has been signed electronically by Lali Raman MD Number of Addenda: 0 Note Initiated On: 04/01/2024 12:17 PM Estimated Blood Loss: Estimated blood loss was minimal. Normal [facility] PROTEIN / CREATININE RATIOon 01-13-2024 Protein/Creatinine (U) [Mass ratio] 0.10 mg/mg [facility] mg/mg [facility] Comment on above: Adult Proteinuria Ca tegories: [...] [Mass/Vol] 135.6 mg/dL 20.0 - 300.0 mg/dL [facility] Interpretation and review of laboratory results Normal [facility] Protein (U) [Mass/Vol] 13 mg/dL 0 - 2 0 mg/dL [facility] URINALYSIS, REFLEX MICROSCOP ICOrdered By: Mesha Mcdaniel on 01-13-2024 Bilirubin Ql (U) Negative Negative [facility] Clarity (Unsp spec) Clear Clear [facility] Color (U) Yellow Yellow [facility] Glucose Test strip (U) [Mass/Vol] 4+ Abnormal Trace, Negative [facility] Comment on above: Result rechecked. Hemoglobin Ql (U) Negative Negative, Trace [facility] Interpretation and review of laboratory results Abnormal [facility] Ketones Ql (U) Negative Negative, Trace [facility] Leukocyte esterase Test strip Ql (U) Negative Negative, 25 Pam/uL [facility] Nitrite Ql (U) Negative Negative [facility] pH (U) 5.5 [pH] 5.0 - 8.0 [facility] Protein (U) [Mass/Vol] Negative Trace , Negative [facility] Specific gravity (U) [Rel density] 1.023 1.005 - 1.030 [facility] Urobilinogen Ql (U) Normal Normal [facility] Basophil percentageOrdered B y: Conchis Meza on 01-03-2024 Bilirubin [Mass/Vol] 0.90 mg/dL 0.20-1.00 [facility] Comment on above: For patients on eltr ombopag therapy, use of Dimension Pinnacle TBIL is not recommended. Chloride [Moles/Vol] 110 mmol/L 98-107 [facility] Cholesterol [Mass/Vol] 168 mg/dL <[address] [facility] Comment on above: <200 mg/dL Desirable 200-240 mg/dL Borderline >240 mg/dL High Risk Glucose [Mass/Vol] 239 mg/dL 74-106 [facility] Comment on above: Glucose result great er than or equal to 200 mg/dLsuggests DIABETES MELLITUS per A.D.A. criteria. Potassium [Moles/Vol] 4.9 mmol/L 3.5-5.1 [facility] Protein [Mass/Vol] 7.2 g/dL 6.4-8.2 [facility] Sodium [Moles/Vol] 138 mmol/L 136-145 [facility] Triglyceride [Mass/Vol] 119 mg/dL <199 [facility] Comment on above: The drugs N-Acetylcy steine and Metamizole may falsely depress this assay.Serum Triglycerides Reference Interval Normal <150 mg/dL Borderline high 150 - 199 mg/dL High 200 - 499 mg/dL Very High > or = 500 mg/dL Laboratory - Chemistry and C hemistry - challengeOrdered By: Conchis Meza on 01-03-2024 Albumin/Globulin [Mass ratio] 1.1 {ratio} 0.9-2.4 [facility] ALP [Catalytic activity/Vol] 208 U/L 45-117 [facility] ALT [Catalytic activity/Vol] 124 U/L 16-61 [facility] Cholesterol in HDL [Mass/Vol] 51 mg/dL >40 [facility] Comment on above: The drugs N-Acetylcy steine and Metamizole may falsely depress this assay. Reference Range HDL <40 mg/dL Low HDL Cholesterol HDL >or= 60 mg/dL High HDL Cholesterol Cholesterol in LDL [Mass/Vol] 93 mg/dL 0-130 [facility] CO2 [Moles/Vol] 24.0 mmol/L 21.0-32.0 [facility] Globulin (S) [Mass/Vol] 3.5 g/dL 2.2-4.2 [facility] Urea nitrogen/Creatinine [Mass ratio] 14.8 mg/mg 10-20 [facility] No Panel InformationOrdered By: Conchis Meza on 01-03-2024 Estimated GFR (MDRD) Amer 67 mL/min >60 [facility] Comment on above: GFR Calc Estimated GFR (MDRD) Non-Af Amer 55 mL/min >60 [facility] Comment on above: Non- GFR Calc Urine Microalbumin/Creatinine Ratio 21.2 mg/g CRE <30 [facility] Vitamin D 25-Hydroxy 35.0 ng/mL [facility] Comment on above: Vitamin D 25(OH) Sta tus Range Deficiency <20 ng/mL (50nmol/L) Insufficiency 20 - 30 ng/mL (50 - 75 nmol/L) Sufficiency 30 - 100 ng/mL (75 - 250 nmol/L) Toxicity >100 ng/mL (>250 nmol/L) VLDL Cholesterol 24 mg/dL 5-40 [facility] Serum or plasma calcium regi urement (mass/volume)Ordered By: Conchis Meza on 01-03-2024 Calcium [Mass/Vol] 9.1 mg/dL 8.5-10.1 [facility] Serum or plasma creatinine m easurement (mass/volume)Ordered By: Conchis Meza on 01-03-2024 Creatinine [Mass/Vol] 1.42 mg/dL 0.70-1.30 [facility] Comment on above: The validity of the calculated GFR & GFRAA in patients over 70 years has not been determined. Clinical correlation is essential. Serum or plasma thyroid stim ulating hormone (TSH) measurement (units/volume)Ordered By: Conchis Meza on 01-03-2024 TSH Qn 0.78 uIU/mL 0.358-3.74 [facility] Serum or plasma urea nitroge n measurement (mass/volume)Ordered By: Conchis Meza on 01-03-2024 Urea nitrogen [Mass/Vol] 21 mg/dL 7-18 [facility] Thin prep Papanicolaou smear with manual screeningOrdered By: Conchis Meza on 01-03-2024 Thin prep Papanicolaou smear with manual screening 3.7 g/dL 3.2-5.0 [facility] Thin prep Papanicolaou smear with manual screening 45 U/L 15-37 [facility] Thin prep Papanicolaou smear with manual screening 4 5-15 [facility] Thin prep Papanicolaou smear with manual screening 14.1 mg/L NO RANGE EST. [facility] Urine creatinine measurement (mass/volume)Ordered By: Conchis Meza on 01-03-2024 Creatinine (U) [Mass/Vol] 66.40 mg/dL NO RANGE EST. [facility] Laboratory - Hematology and Cell countson 10-24-2023 HbA1c (Bld) [Mass fraction] 11.6 % 4.2-6.3 [facility] Lipid 1996 panelon 3 Cholesterol [Mass/Vol] 128 mg/dL <200 mg/dL [facility] Cholesterol in HDL [Mass/Vol] 37 mg/dL Low >39 mg/dL [facility] Cholesterol in LDL [Mass/Vol] 52 mg/dL <100 mg/dL [facility] Cholesterol in LDL/Cholesterol in HDL [Mass ratio] 1.41 {ratio} <2.54 [facility] Cholesterol in VLDL [Mass/Vol] 39 mg/dL High <30 mg/dL [facility] Cholesterol non HDL [Mass/Vol] 91 mg/dL <130 mg/dL [facility] Cholesterol.total/Choles terol in HDL [Mass ratio] 3.46 {ratio} <5.10 [facility] Fasting Time 0 hrs [facility] Triglyceride [Mass/Vol] 195 mg/dL High <150 mg/dL [facility] Laboratory - Microbiology an d Antimicrobial susceptibilityon 07-15-2023 BK virus DNA CARMEN+probe [#/Vol] Not detected BK Virus DNA Not Detected by PCR. [facility] PROTEIN CREATININE RATIOon 1 09-14-2022 Protein/Creatinine (U) [Mass ratio] 0.07 mg/mg <0.15 mg/mg [facility] PTH INTACT BLDon 07-15-2023 Parathyrin.intact [Mass/Vol] 54 pg/mL 15 - 65 pg/mL [facility] Protein/Creatinine (U) [Mass ratio]on 07-15-2023 Creatinine (U) [Mass/Vol] 141.1 mg/dL 20.0 - 300.0 mg/dL [facility] Protein (U) [Mass/Vol] 10 mg/dL 0 - 2 0 mg/dL [facility] Urinalysis complete panel (U )on 07-15-2023 Bilirubin Ql (U) Negative Negative [facility] Clarity (Unsp spec) Clear Clear [facility] Color (U) Yellow Yellow [facility] Glucose Test strip (U) [Mass/Vol] 3+ Abnormal Trace, Negative [facility] Hemoglobin Ql (U) Negative Negative, Trace [facility] Hyaline casts (Urine sed) [#/Area] /[LPF] Abnormal 0 /LPF [facility] Ketones Ql (U) Negative Negative, Trace [facility] Leukocyte esterase Test strip Ql (U) Negative Negative, 25 Pam/uL [facility] Nitrite Ql (U) Negative Negative [facility] pH (U) 5.0 [pH] 5.0 - 8.0 [facility] Protein (U) [Mass/Vol] Negative Trace , Negative [facility] RBC LM.HPF (Urine sed) [#/Area] 0-3 /HPF 0-3 /HPF [facility] Specific gravity (U) [Rel density] 1.013 1.005 - 1.030 [facility] Urobilinogen Ql (U) Negative Negative [facility] WBC LM.HPF (Urine sed) [#/Area] 0-5 /HPF 0-5 /HPF [facility] VITAMIN D 25 HYDROXYon 07-15 25-hydroxyvitamin D3 [Mass/Vol] 19.5 ng/mL Low 31.0 - 80.0 ng/mL [facility] US LEG VEIN DVT UNL VAS LABo n 04-09-2023 [facility] Glucose Glucometer (BldC) [M ass/Vol]Ordered By: Loi Saldana on 03-14-2023 Glucose [Mass/Vol] 129 mg/dL 74-106 [facility] Comment on above: MANAGEMENT OF PATIEN T CARE PER NURSING PROTOCOL Absolute lymphocyte countOrd ered By: Loi Saldana on 03-13-2023 Lymphocytes Auto (Unsp spec) [#/Vol] 1.65 10*3/uL 0.83-4.51 [facility] Basophil percentageOrdered B y: Loi Saldana on 03-13-2023 Basophils/100 WBC (Bld) 0.3 % 0-1 [facility] Bilirubin [Mass/Vol] 0.50 mg/dL 0.20-1.00 [facility] Comment on above: For patients on eltr ombopag therapy, use of Dimension Pinnacle TBIL is not recommended. Chloride [Moles/Vol] 107 mmol/L 98-107 [facility] Eosinophils/100 WBC (Bld) 0.8 % 0-5 [facility] Glucose [Mass/Vol] 186 mg/dL 74-106 [facility] Comment on above: Fasting Glucose resu lt greater than or equal to 126 mg/dL suggests DIABETES MELLITUS per A.D.A. criteria. Neutrophils (Bld) [#/Vol] 4.9 10*3/uL 2.0-7.7 [facility] Neutrophils/100 WBC (Bld) 67.1 % 47-70 [facility] Potassium [Moles/Vol] 4.1 mmol/L 3.5-5.1 [facility] Protein [Mass/Vol] 7.4 g/dL 6.4-8.2 [facility] Sodium [Moles/Vol] 137 mmol/L 136-145 [facility] WBC (Bld) [#/Vol] 7.3 10*3/uL 4.4-11.0 [facility] Basophil percentage 0-5 SEEN /hpf 0-[address] [facility] Bilirubin Test strip Ql (U)O rdered By: Loi Saldana on 03-13-2023 Bilirubin Ql (U) Negative Negative [facility] Blood erythrocytes count (nu mber/volume)Ordered By: Loi Saldana on 03-13-2023 RBC (Bld) [#/Vol] 5.10 10*6/uL 4.6-6.2 [facility] Blood hemoglobin measurement (mass/volume)Ordered By: Loi Saldana on 03-13-2023 Hemoglobin (Bld) [Mass/Vol] 15.9 g/dL 13.0-16.5 [facility] Blood lymphocytes/100 leukoc ytesOrdered By: Loi Saldana on 03-13-2023 Lymphocytes/100 WBC (Bld) 22.5 % 19-41 [facility] Blood monocytes/100 leukocyt esOrdered By: Loi Saldana on 03-13-2023 Monocytes/100 WBC (Bld) 9.0 % 0-10 [facility] Blood platelet mean volumeOr dered By: Loi Saldana on 03-13-2023 Platelet mean volume (Bld) [Entitic vol] 9.8 fL 6.2-12.0 [facility] Determination of erythrocyte mean corpuscular volume (MCV)Ordered By: Loi Saldana on 03-13-2023 MCV (RBC) [Entitic vol] 93.1 fL 80-94 [facility] Hematocrit Auto (Bld) [Volum e fraction]Ordered By: Loi Saldana on 03-13-2023 Hematocrit (Bld) [Volume fraction] 47.5 % 40-54 [facility] Ketones Test strip Ql (U)Ord ered By: Loi Saldana on 03-13-2023 Ketones Ql (U) Negative Negative [facility] Laboratory - Chemistry and C hemistry - challengeOrdered By: Loi Saldana on 03-13-2023 ALP [Catalytic activity/Vol] 213 U/L 45-117 [facility] ALT [Catalytic activity/Vol] 53 U/L 16-61 [facility] CO2 [Moles/Vol] 21.0 mmol/L 21.0-32.0 [facility] Globulin (S) [Mass/Vol] 3.5 g/dL 2.2-4.2 [facility] Urea nitrogen/Creatinine [Mass ratio] 14.6 mg/mg 10-20 [facility] - Hematology and Cell countsOrdered By: Loi Saldana on 03-13-2023 Erythrocyte distribution width (RBC) [Entitic vol] 43.1 fL 35.1-43.9 [facility] Erythrocyte distribution width (RBC) [Ratio] 12.5 % 11.6-14.6 [facility] Immature granulocytes/100 WBC (Bld) 0.300 % 0.0-0.9 [facility] Comment on above: IG% - Immature Granu locytes (promyelocytes, myelocytes and metamyelocytes) > 1% indicates that a LEFT SHIFT is Present. MCH (RBC) [Entitic mass] 31.2 pg 27.0-32.0 [facility] Nucleated RBC/100 WBC (Bld) [Ratio] 0 % 0-5 [facility] MCHC Auto (RBC) [Mass/Vol]Or dered By: Loi Saldana on 03-13-2023 MCHC (RBC) [Mass/Vol] 33.5 g/dL 32-36 [facility] Mucus LM Ql (Urine sed)Order ed By: Loi Saldana on 03-13-2023 Mucus Ql (Urine sed) 0 SEEN /hpf [facility] Nitrite Test strip Ql (U)Ord ered By: Loi Saldana on 03-13-2023 Nitrite Ql (U) Positive Negative [facility] No Panel InformationOrdered By: Loi Saldana on 03-13-2023 Estimated Creatinine Clearance Calc 42.55 ml/min [facility] Estimated GFR (MDRD) Amer 47 mL/min >60 [facility] Comment on above: GFR Calc Estimated GFR (MDRD) Non-Af Amer 39 mL/min >60 [facility] Comment on above: Non- GFR Calc Troponin I High Sensitivity 9 pg/mL 3.0-78.0 [facility] Comment on above: Please Note: New Isha t Units and Gender Specific Reference Ranges. For more information see Policy Stat Procedure Pinnacle High Sensitivity Troponin (TNIH) and attachments. Platelets bldOrdered By: Ryan Saldana on 03-13-2023 Platelets (Bld) [#/Vol] 205 10*3/uL 150-450 [facility] Protein Test strip Ql (U)Ord ered By: Loi Saldana on 03-13-2023 Protein Ql (U) 30 mg/dl Negative [facility] Serum or plasma albumin regi urement (mass/volume)Ordered By: Loi Saldana on 03-13-2023 Albumin [Mass/Vol] 3.9 g/dL 3.2-5.0 [facility] Serum or plasma albumin/glob ulin mass ratioOrdered By: Loi Saldana on 03-13-2023 Albumin/Globulin [Mass ratio] 1.1 {ratio} 0.9-2.4 [facility] Serum or plasma calcium regi urement (mass/volume)Ordered By: Loi Saldana on 03-13-2023 Calcium [Mass/Vol] 9.1 mg/dL 8.5-10.1 [facility] Serum or plasma creatinine m easurement (mass/volume)Ordered By: Loi Saldana on 03-13-2023 Creatinine [Mass/Vol] 1.92 mg/dL 0.70-1.30 [facility] Comment on above: The validity of the calculated GFR & GFRAA in patients over 70 years has not been determined. Clinical correlation is essential. Serum or plasma urea nitroge n measurement (mass/volume)Ordered By: Loi Saldana on 03-13-2023 Urea nitrogen [Mass/Vol] 28 mg/dL 7-18 [facility] Squamous epithelial cells de tection in urine sediment by light microscopyOrdered By: Loi Saldana on 03-13-2023 Epithelial cells.squamous LM Ql (Urine sed) 0 SEEN /hpf 0-5 [facility] Thin prep Papanicolaou smear with manual screeningOrdered By: Loi Saldana on 03-13-2023 Thin prep Papanicolaou smear with manual screening 33 U/L 15-37 [facility] Thin prep Papanicolaou smear with manual screening 9 5-15 [facility] Urine blood detectionOrdered By: Loi Saldana on 03-13-2023 RBC Ql (U) 10 /ul Negative [facility] RBC Ql (U) 0 SEEN /hpf 0-5 [facility] Urine clarityOrdered By: Ryan Saldana on 03-13-2023 Clarity (U) Clear Clear [facility] Urine color determinationOrd ered By: Loi Saldana on 03-13-2023 Color (U) Yellow Yellow [facility] Urine glucose detectionOrder ed By: Loi Saldana on 03-13-2023 Glucose Ql (U) 1000 mg/dl Normal [facility] Urine leukocyte esterase det ection by dipstickOrdered By: Loi Saldana on 03-13-2023 Leukocyte esterase Test strip Ql (U) 25 /ul Negative [facility] Urine pHOrdered By: Loi aguilar on 03-13-2023 pH (U) 5.0 [pH] 5.0 - 8.0 [facility] Urine sediment bacteria coun t by microscopy (number/high power field)Ordered By: Loi Saldana on 03-13-2023 Bacteria LM.HPF (Urine sed) [#/Area] RARE /hpf None Seen [facility] Urine specific gravity measu rementOrdered By: Loi Saldana on 03-13-2023 Specific gravity (U) [Rel density] 1.020 1.002-1.030 [facility] Urobilinogen Auto test strip Ql (U)Ordered By: Loi Saldana on 03-13-2023 Urobilinogen Ql (U) 1 mg/dl Normal [facility] Whole blood hemoglobin A1c/t otal hemoglobin ratio (mass fraction)Ordered By: Conchis Meza on 01-11-2023 HbA1c (Bld) [Mass fraction] 9.2 % 3.8-5.6 [facility] Comment on above: Normal < 5.7 % Predi abetic 5.7 - 6.4 % Diabetic >or= 6.5 % Please note range changes. PROTEIN CREATININE RATIOon 0 01-01-2023 Protein/Creatinine (U) [Mass ratio] 0.07 mg/mg <0.15 mg/mg [facility] Protein/Creatinine (U) [Mass ratio]on 01-01-2023 Creatinine (U) [Mass/Vol] 97.1 mg/dL 20.0 - 300.0 mg/dL [facility] Protein (U) [Mass/Vol] 7 mg/dL 0 - 2 0 mg/dL [facility] URINALYSIS, DIPSTICK ONLYon 12-31-2022 Bilirubin Ql (U) Negative Negative [facility] Clarity (Unsp spec) Clear Clear [facility] Color (U) Light Yellow Yellow [facility] Glucose Test strip (U) [Mass/Vol] 1+ Abnormal Trace, Negative [facility] Hemoglobin Ql (U) Negative Negative, Trace [facility] Ketones Ql (U) Negative Negative, Trace [facility] Leukocyte esterase Test strip Ql (U) Negative Negative, 25 Pam/uL [facility] Nitrite Ql (U) Negative Negative [facility] pH (U) 5.0 [pH] 5.0 - 8.0 [facility] Protein (U) [Mass/Vol] Negative Trace , Negative [facility] Specific gravity (U) [Rel density] 1.012 1.005 - 1.030 [facility] Urobilinogen Ql (U) Negative Negative [facility] Acid fast bacilli (AFB) cult ureOrdered By: Dr. Levy on 12-18-2022 Mycobacterium sp identified Org specific cx Nom (Unsp spec) [facility] Thin prep Papanicolaou smear with manual screeningOrdered By: Dr. Levy on 12-05-2022 Thin prep Papanicolaou smear with manual screening [facility] Anaerobic cultureOrdered By: Dr. Levy on 11-06-2022 Bacteria identified Anaer cx Nom (Unsp spec) No growth in [address] [facility] Laboratory - Microbiology an d Antimicrobial susceptibilityOrdered By: Dr. Santiago on 11-06-2022 Bacteria identified Cx Nom (Bld) Negative [facility] Bacteria identified Cx Nom (Bld) No growth in 5 days. [facility] Bacteria identified Cx Nom ( Wound)Ordered By: Dr. Levy on 11-05-2022 Wound Culture Staphylococcus epidermidis [facility] Wound Culture Enterobacter cloacae complex [facility] Wound Culture Staphylococcus epidermidis [facility] Glucose Glucometer (BldC) [M ass/Vol]Ordered By: Dr. Levy on 11-05-2022 Glucose [Mass/Vol] 285 mg/dL 74-106 [facility] Comment on above: MANAGEMENT OF PATIEN T CARE PER NURSING PROTOCOL Serum or plasma C reactive p rotein measurement (mass/volume)Ordered By: Dr. Levy on 11-05-2022 CRP [Mass/Vol] 5.83 mg/L 0.0-3.0 [facility] Comment on above: C-Reactive Protein ( CRP) provides useful information for thediagnosis, therapy and monitoring of inflammatory processesand associated diseases. For the evaluation of Relative Riskfor Cardiovascular Disease, a High Sensitivity CRP (HSCRP)should be ordered. Vancomycin troughOrdered By: Dr. Jara on 11-05-2022 Vancomycin trough [Mass/Vol] 18.4 ug/mL 5.0-15.0 [facility] Comment on above: VANCOMYCIN STANDARED DRUG THERAPY TROUGH LEVEL: 5.0 - 15.0 mg/L VANCOMYCIN HIGH INTENSITY THERAPY TROUGH LEVEL: 15.0 - 20.0 mg/L High Intensity therapy recommended for serious lifethreatening infections include:- Jaqxuskxrs-Tigpwulewrcy-Uigkhebph (Ventilator/Healtcare Associated)-Sepsis PLEASE CONTACT PHARMACY SERVICES (#[id number]) FOR INTERPRETATIONOF RESULTS. Absolute lymphocyte countOrd ered By: Dr. Niño on 11-04-2022 Lymphocytes Auto (Unsp spec) [#/Vol] 1.64 10*3/uL 0.83-4.51 [facility] Anaerobic cultureOrdered By: Dr. Levy on 11-04-2022 Bacteria identified Anaer cx Nom (Unsp spec) No anaerobic bacteria isolated. [facility] Basophil percentageOrdered B y: Dr. Niño on 11-04-2022 Basophils/100 WBC (Bld) 0.5 % 0-1 [facility] Chloride [Moles/Vol] 114 mmol/L 98-107 [facility] Eosinophils/100 WBC (Bld) 0.8 % 0-5 [facility] Glucose [Mass/Vol] 167 mg/dL 74-106 [facility] Comment on above: Fasting Glucose resu lt greater than or equal to 126 mg/dL suggests DIABETES MELLITUS per A.D.A. criteria. Neutrophils (Bld) [#/Vol] 3.8 10*3/uL 2.0-7.7 [facility] Neutrophils/100 WBC (Bld) 61.4 % 47-70 [facility] Potassium [Moles/Vol] 4.6 mmol/L 3.5-5.1 [facility] Sodium [Moles/Vol] 143 mmol/L 136-145 [facility] WBC (Bld) [#/Vol] 6.2 10*3/uL 4.4-11.0 [facility] Blood erythrocytes count (nu mber/volume)Ordered By: Dr. Niño on 11-04-2022 RBC (Bld) [#/Vol] 4.62 10*6/uL 4.6-6.2 [facility] Blood hemoglobin measurement (mass/volume)Ordered By: Dr. Niño on 11-04-2022 Hemoglobin (Bld) [Mass/Vol] 14.2 g/dL 13.0-16.5 [facility] Blood lymphocytes/100 leukoc ytesOrdered By: Dr. Niño on 11-04-2022 Lymphocytes/100 WBC (Bld) 26.5 % 19-41 [facility] Blood monocytes/100 leukocyt esOrdered By: Dr. Niño on 11-04-2022 Monocytes/100 WBC (Bld) 10.5 % 0-10 [facility] Blood platelet mean volumeOr dered By: Dr. Niño on 11-04-2022 Platelet mean volume (Bld) [Entitic vol] 10.1 fL 6.2-12.0 [facility] Determination of erythrocyte mean corpuscular volume (MCV)Ordered By: Dr. Niño on 11-04-2022 MCV (RBC) [Entitic vol] 95.5 fL 80-94 [facility] Hematocrit Auto (Bld) [Volum e fraction]Ordered By: Dr. Niño on 11-04-2022 Hematocrit (Bld) [Volume fraction] 44.1 % 40-54 [facility] Laboratory - Chemistry and C hemistry - challengeOrdered By: Dr. Niño on 11-04-2022 CO2 [Moles/Vol] 19.0 mmol/L 21.0-32.0 [facility] Urea nitrogen/Creatinine [Mass ratio] 29.9 mg/mg 10-20 [facility] Laboratory - Hematology and Cell countsOrdered By: Dr. Niño on 11-04-2022 Erythrocyte distribution width (RBC) [Entitic vol] 45.1 fL 35.1-43.9 [facility] Erythrocyte distribution width (RBC) [Ratio] 12.9 % 11.6-14.6 [facility] Immature granulocytes/100 WBC (Bld) 0.300 % 0.0-0.9 [facility] Comment on above: IG% - Immature Granu locytes (promyelocytes, myelocytes and metamyelocytes) > 1% indicates that a LEFT SHIFT is Present. MCH (RBC) [Entitic mass] 30.7 pg 27.0-32.0 [facility] Nucleated RBC/100 WBC (Bld) [Ratio] 0 % 0-5 [facility] MCHC Auto (RBC) [Mass/Vol]Or dered By: Dr. Niño on 11-04-2022 MCHC (RBC) [Mass/Vol] 32.2 g/dL 32-36 [facility] No Panel InformationOrdered By: Dr. Niño on 11-04-2022 Estimated Creatinine Clearance Calc 60.33 ml/min [facility] Estimated GFR (MDRD) Amer 70 mL/min >60 [facility] Comment on above: GFR Calc Estimated GFR (MDRD) Non-Af Amer 58 mL/min >60 [facility] Comment on above: Non- GFR Calc Platelets bldOrdered By: Dr. Niño on 11-04-2022 Platelets (Bld) [#/Vol] 184 10*3/uL 150-450 [facility] Serum or plasma calcium regi urement (mass/volume)Ordered By: Dr. Niño on 11-04-2022 Calcium [Mass/Vol] 9.4 mg/dL 8.5-10.1 [facility] Serum or plasma creatinine m easurement (mass/volume)Ordered By: Dr. Niño on 11-04-2022 Creatinine [Mass/Vol] 1.37 mg/dL 0.70-1.30 [facility] Comment on above: The validity of the calculated GFR & GFRAA in patients over 70 years has not been determined. Clinical correlation is essential. Serum or plasma urea nitroge n measurement (mass/volume)Ordered By: Dr. Niño on 11-04-2022 Urea nitrogen [Mass/Vol] 41 mg/dL 7-18 [facility] Serum or plasma vancomycin m easurement (mass/volume)Ordered By: Dr. Smith on 11-04-2022 Vancomycin [Mass/Vol] 16.1 ug/mL 0.0-15.0 [facility] Comment on above: VANCOMYCIN STANDARD DRUG THERAPY: CRITICAL VALUE IS > 15.0 mg/L VANCOMYCIN HIGH INTENSITY THERAPY: CRITICAL VALUE IS > 20.0 mg/L PLEASE CONTACT PHARMACY SERVICES (#[id number]) FOR INTERPRETATIONOF RESULTS. THIS RESULT DOES NOT REPRESENT A PEAK OR TROUGHLEVEL FOR THIS DRUG. Thin prep Papanicolaou smear with manual screeningOrdered By: Dr. Niño on 11-04-2022 Thin prep Papanicolaou smear with manual screening 10 5-15 [facility] Gram stain for investigation of transfusion reactionOrdered By: Dr. Levy on 11-02-2022 Microscopic observation Gram stain Nom (Unsp spec) [facility] No Panel InformationOrdered By: Dr. Santiago on 11-02-2022 Bacteria Detection (PCR) Negative [facility] Absolute lymphocyte countOrd ered By: Dr. Santiago on 11-01-2022 Lymphocytes Auto (Unsp spec) [#/Vol] 1.35 10*3/uL 0.83-4.51 [facility] Basophil percentageOrdered B y: Dr. Santiago on 11-01-2022 Basophil percentage 0 SEEN /hpf 0-5 [facility] Basophils/100 WBC (Bld) 0.3 % 0-1 [facility] Bilirubin [Mass/Vol] 0.50 mg/dL 0.20-1.00 [facility] Comment on above: For patients on eltr ombopag therapy, use of Dimension [employer] TBIL is not recommended. Chloride [Moles/Vol] 108 mmol/L 98-107 [facility] Eosinophils/100 WBC (Bld) 0.9 % 0-5 [facility] Glucose [Mass/Vol] 266 mg/dL 74-106 [facility] Comment on above: Glucose result great er than or equal to 200 mg/dLsuggests DIABETES MELLITUS per A.D.A. criteria. Lactate [Moles/Vol] 1.4 mmol/L 0.4-2.0 [facility] Neutrophils (Bld) [#/Vol] 4.3 10*3/uL 2.0-7.7 [facility] Neutrophils/100 WBC (Bld) 67.5 % 47-70 [facility] Potassium [Moles/Vol] 5.2 mmol/L 3.5-5.1 [facility] Comment on above: Slight Hemolysis, Re sult may be falsely increased. Protein [Mass/Vol] 7.2 g/dL 6.4-8.2 [facility] Sodium [Moles/Vol] 139 mmol/L 136-145 [facility] WBC (Bld) [#/Vol] 6.4 10*3/uL 4.4-11.0 [facility] Bilirubin Test strip Ql (U)O rdered By: Dr. Santiago on 11-01-2022 Bilirubin Ql (U) Negative Negative [facility] Blood erythrocytes count (nu mber/volume)Ordered By: Dr. Santiago on 11-01-2022 RBC (Bld) [#/Vol] 5.23 10*6/uL 4.6-6.2 [facility] Blood hemoglobin measurement (mass/volume)Ordered By: Dr. Santiago on 11-01-2022 Hemoglobin (Bld) [Mass/Vol] 15.9 g/dL 13.0-16.5 [facility] Blood lymphocytes/100 leukoc ytesOrdered By: Dr. Santiago on 11-01-2022 Lymphocytes/100 WBC (Bld) 21.1 % 19-41 [facility] Blood monocytes/100 leukocyt esOrdered By: Dr. Santiago on 11-01-2022 Monocytes/100 WBC (Bld) 9.7 % 0-10 [facility] Blood platelet mean volumeOr dered By: Dr. Santiago on 11-01-2022 Platelet mean volume (Bld) [Entitic vol] 9.9 fL 6.2-12.0 [facility] COVID-19 virus antigen assay Ordered By: Dr. Amor on 11-01-2022 SARS-CoV-2 (COVID-19) Ag IA.rapid Ql (Resp) [facility] Determination of erythrocyte mean corpuscular volume (MCV)Ordered By: Dr. Santiago on 11-01-2022 MCV (RBC) [Entitic vol] 95.0 fL 80-94 [facility] Erythrocyte sedimentation ra teOrdered By: Dr. Santiago on 11-01-2022 ESR (Bld) [Velocity] 10 mm/h 0-20 [facility] Glucose Glucometer (BldC) [M ass/Vol]Ordered By: Dr. Levy on 11-01-2022 Glucose [Mass/Vol] 264 mg/dL 74-106 [facility] Comment on above: MANAGEMENT OF PATIEN T CARE PER NURSING PROTOCOL Hematocrit Auto (Bld) [Volum e fraction]Ordered By: Dr. Santiago on 11-01-2022 Hematocrit (Bld) [Volume fraction] 49.7 % 40-54 [facility] INR in Blood by Coagulation assayOrdered By: Dr. Santiago on 11-01-2022 INR Coag (Bld) [Relative time] 1.1 {INR} [facility] Ketones Test strip Ql (U)Ord ered By: Dr. Santiago on 11-01-2022 Ketones Ql (U) Negative Negative [facility] Laboratory - Chemistry and C hemistry - challengeOrdered By: Dr. Santiago on 11-01-2022 ALP [Catalytic activity/Vol] 156 U/L 45-117 [facility] ALT [Catalytic activity/Vol] 41 U/L 16-61 [facility] CO2 [Moles/Vol] 25.0 mmol/L 21.0-32.0 [facility] Globulin (S) [Mass/Vol] 3.7 g/dL 2.2-4.2 [facility] Urea nitrogen/Creatinine [Mass ratio] 22.7 mg/mg 10-20 [facility] Laboratory - CoagulationOrde red By: Dr. Santiago on 11-01-2022 aPTT Coag (Bld) [Time] 28.9 s 24.1-36.[address] [facility] PT Coag (PPP) [Time] 13.4 s 11.7-14.9 [facility] Laboratory - Hematology and Cell countsOrdered By: Dr. Santiago on 11-01-2022 Erythrocyte distribution width (RBC) [Entitic vol] 44.9 fL 35.1-43.9 [facility] Erythrocyte distribution width (RBC) [Ratio] 12.7 % 11.6-14.6 [facility] Immature granulocytes/100 WBC (Bld) 0.500 % 0.0-0.9 [facility] Comment on above: IG% - Immature Granu locytes (promyelocytes, myelocytes and metamyelocytes) > 1% indicates that a LEFT SHIFT is Present. MCH (RBC) [Entitic mass] 30.4 pg 27.0-32.0 [facility] Nucleated RBC/100 WBC (Bld) [Ratio] 0 % 0-5 [facility] MCHC Auto (RBC) [Mass/Vol]Or dered By: Dr. Santiago on 11-01-2022 MCHC (RBC) [Mass/Vol] 32.0 g/dL 32-36 [facility] Mucus LM Ql (Urine sed)Order ed By: Dr. Santiago on 11-01-2022 Mucus Ql (Urine sed) 0 SEEN /hpf [facility] Nitrite Test strip Ql (U)Ord ered By: Dr. Santiago on 11-01-2022 Nitrite Ql (U) Negative Negative [facility] No Panel InformationOrdered By: Dr. Santiago on 11-01-2022 Estimated Creatinine Clearance Calc 50.71 ml/min [facility] Estimated GFR (MDRD) Amer 57 mL/min >60 [facility] Comment on above: GFR Calc Estimated GFR (MDRD) Non-Af Amer 47 mL/min >60 [facility] Comment on above: Non- GFR Calc Platelets bldOrdered By: Dr. Santiago on 11-01-2022 Platelets (Bld) [#/Vol] 199 10*3/uL 150-450 [facility] Protein Test strip Ql (U)Ord ered By: Dr. Santiago on 11-01-2022 Protein Ql (U) Negative Negative [facility] Serum or plasma C reactive p rotein measurement (mass/volume)Ordered By: Dr. Santiago on 11-01-2022 CRP [Mass/Vol] 10.80 mg/L 0.0-3.0 [facility] Comment on above: C-Reactive Protein ( CRP) provides useful information for thediagnosis, therapy and monitoring of inflammatory processesand associated diseases. For the evaluation of Relative Riskfor Cardiovascular Disease, a High Sensitivity CRP (HSCRP)should be ordered. Serum or plasma albumin regi urement (mass/volume)Ordered By: Dr. Santiago on 11-01-2022 Albumin [Mass/Vol] 3.5 g/dL 3.2-5.0 [facility] Serum or plasma albumin/glob ulin mass ratioOrdered By: Dr. Santiago on 11-01-2022 Albumin/Globulin [Mass ratio] 0.9 {ratio} 0.9-2.4 [facility] Serum or plasma calcium regi urement (mass/volume)Ordered By: Dr. Santiago on 11-01-2022 Calcium [Mass/Vol] 9.6 mg/dL 8.5-10.1 [facility] Serum or plasma creatinine m easurement (mass/volume)Ordered By: Dr. Santiago on 11-01-2022 Creatinine [Mass/Vol] 1.63 mg/dL 0.70-1.30 [facility] Comment on above: The validity of the calculated GFR & GFRAA in patients over 70 years has not been determined. Clinical correlation is essential. Serum or plasma urea nitroge n measurement (mass/volume)Ordered By: Dr. Santiago on 11-01-2022 Urea nitrogen [Mass/Vol] 37 mg/dL 7-18 [facility] Squamous epithelial cells de tection in urine sediment by light microscopyOrdered By: Dr. Santiago on 11-01-2022 Epithelial cells.squamous LM Ql (Urine sed) 0 SEEN /hpf 0-5 [facility] Thin prep Papanicolaou smear with manual screeningOrdered By: Dr. Santiago on 11-01-2022 Thin prep Papanicolaou smear with manual screening 23 U/L 15-37 [facility] Comment on above: Slight Hemolysis, Re sult may be falsely increased. Thin prep Papanicolaou smear with manual screening 6 5-15 [facility] Urine blood detectionOrdered By: Dr. Santiago on 11-01-2022 RBC Ql (U) 10 /ul Negative [facility] RBC Ql (U) 0 SEEN /hpf 0-5 [facility] Urine clarityOrdered By: Dr. Santiago on 11-01-2022 Clarity (U) Clear Clear [facility] Urine color determinationOrd ered By: Dr. Santiago on 11-01-2022 Color (U) Yellow Yellow [facility] Urine glucose detectionOrder ed By: Dr. Santiago on 11-01-2022 Glucose Ql (U) 1000 mg/dl Normal [facility] Urine leukocyte esterase det ection by dipstickOrdered By: Dr. Santiago on 11-01-2022 Leukocyte esterase Test strip Ql (U) Negative Negative [facility] Urine pHOrdered By: Dr. Jay ramirez on 11-01-2022 pH (U) 6.0 [pH] 5.0 - 8.0 [facility] Urine sediment bacteria coun t by microscopy (number/high power field)Ordered By: Dr. Santiago on 11-01-2022 Bacteria LM.HPF (Urine sed) [#/Area] 0 /[HPF] None Seen [facility] Urine specific gravity measu rementOrdered By: Dr. Santiago on 11-01-2022 Specific gravity (U) [Rel density] 1.030 1.002-1.030 [facility] Urobilinogen Auto test strip Ql (U)Ordered By: Dr. Santiago on 11-01-2022 Urobilinogen Ql (U) 1 mg/dl Normal [facility] Anaerobic cultureOrdered By: Dona Medina on 10-28-2022 Bacteria identified Anaer cx Nom (Unsp spec) No anaerobic bacteria isolated. [facility] Bacteria identified Cx Nom ( Wound)Ordered By: Dona Medina on 10-28-2022 Wound Culture Staphylococcus epidermidis [facility] Wound Culture Pseudomonas aeroginosa [facility] Gram stain for investigation of transfusion reactionOrdered By: Dona Medina on 10-26-2022 Microscopic observation Gram stain Nom (Unsp spec) [facility] PROTEIN CREATININE RATIOon 0 09-24-2022 Protein/Creatinine (U) [Mass ratio] 0.07 mg/mg <0.15 mg/mg [facility] Protein/Creatinine (U) [Mass ratio]on 09-24-2022 Creatinine (U) [Mass/Vol] 76.2 mg/dL 20.0 - 300.0 mg/dL [facility] Protein (U) [Mass/Vol] 5 mg/dL 0 - 2 0 mg/dL [facility] URINALYSIS, DIPSTICK ONLYon 09-24-2022 Bilirubin Ql (U) Negative Negative [facility] Clarity (Unsp spec) Clear Clear [facility] Color (U) Light Yellow Yellow [facility] Glucose Test strip (U) [Mass/Vol] 3+ Abnormal Trace, Negative [facility] Hemoglobin Ql (U) Negative Negative, Trace [facility] Ketones Ql (U) Negative Negative, Trace [facility] Leukocyte esterase Test strip Ql (U) Negative Negative, 25 Pam/mL [facility] Nitrite Ql (U) Negative Negative [facility] pH (U) 6.0 [pH] 5.0 - 8.0 [facility] Protein (U) [Mass/Vol] Negative Trace , Negative [facility] Specific gravity (U) [Rel density] 1.013 1.005 - 1.030 [facility] Urobilinogen Ql (U) Negative Negative [facility] Glucose Glucometer (BldC) [M ass/Vol]Ordered By: Dona Medina on 09-11-2022 Glucose [Mass/Vol] 247 mg/dL 74-106 [facility] Comment on above: MANAGEMENT OF PATIEN T CARE PER NURSING PROTOCOL Laboratory - Hematology and Cell countson 09-06-2022 HbA1c (Bld) [Mass fraction] 9.9 % [facility] Glucose Glucometer (BldC) [M ass/Vol]Ordered By: Dona Medina on 09-05-2022 Glucose [Mass/Vol] 176 mg/dL 74-106 [facility] Comment on above: MANAGEMENT OF PATIEN T CARE PER NURSING PROTOCOL Absolute lymphocyte countOrd ered By: Dr. Barroso on 08-28-2022 Lymphocytes Auto (Unsp spec) [#/Vol] 1.20 10*3/uL 0.83-4.51 [facility] Basophil percentageOrdered B y: Dr. Barroso on 08-28-2022 Basophils/100 WBC (Bld) 0.3 % 0-1 [facility] Bilirubin [Mass/Vol] 0.50 mg/dL 0.20-1.00 [facility] Comment on above: For patients on eltr ombopag therapy, use of Dimension [employer] TBIL is not recommended. Chloride [Moles/Vol] 112 mmol/L 98-107 [facility] Eosinophils/100 WBC (Bld) 0.7 % 0-5 [facility] Glucose [Mass/Vol] 104 mg/dL 74-106 [facility] Comment on above: Fasting Glucose resu lt from 100 to 125 mg/dL suggests IMPAIRED HOMEOSTASIS per A.D.A. criteria. Neutrophils (Bld) [#/Vol] 8.3 10*3/uL 2.0-7.7 [facility] Neutrophils/100 WBC (Bld) 79.7 % 47-70 [facility] Potassium [Moles/Vol] 4.3 mmol/L 3.5-5.1 [facility] Protein [Mass/Vol] 7.3 g/dL 6.4-8.2 [facility] Sodium [Moles/Vol] 142 mmol/L 136-145 [facility] WBC (Bld) [#/Vol] 10.3 10*3/uL 4.4-11.0 [facility] Blood erythrocytes count (nu mber/volume)Ordered By: Dr. Barroso on 08-28-2022 RBC (Bld) [#/Vol] 5.13 10*6/uL 4.6-6.2 [facility] Blood hemoglobin measurement (mass/volume)Ordered By: Dr. Barroso on 08-28-2022 Hemoglobin (Bld) [Mass/Vol] 15.2 g/dL 13.0-16.5 [facility] Blood lymphocytes/100 leukoc ytesOrdered By: Dr. Barroso on 08-28-2022 Lymphocytes/100 WBC (Bld) 11.6 % 19-41 [facility] Blood monocytes/100 leukocyt esOrdered By: Dr. Barroso on 08-28-2022 Monocytes/100 WBC (Bld) 7.2 % 0-10 [facility] Blood platelet mean volumeOr dered By: Dr. Barroso on 08-28-2022 Platelet mean volume (Bld) [Entitic vol] 9.4 fL 6.2-12.0 [facility] Determination of erythrocyte mean corpuscular volume (MCV)Ordered By: Dr. Barroso on 08-28-2022 MCV (RBC) [Entitic vol] 92.6 fL 80-94 [facility] Glucose Glucometer (BldC) [M ass/Vol]Ordered By: Dr. Barroso on 08-28-2022 Glucose [Mass/Vol] 118 mg/dL 74-106 [facility] Comment on above: MANAGEMENT OF PATIEN T CARE PER NURSING PROTOCOL Glucose Glucometer (BldC) [M ass/Vol]on 08-28-2022 Glucose [Mass/Vol] 60 mg/dL 74-106 [facility] Work Phone: Comment on above: MANAGEMENT OF PATIEN T CARE PER NURSING PROTOCOL Hematocrit Auto (Bld) [Volum e fraction]Ordered By: Dr. Barroso on 08-28-2022 Hematocrit (Bld) [Volume fraction] 47.5 % 40-54 [facility] Laboratory - Chemistry and C hemistry - challengeOrdered By: Dr. Barroso on 08-28-2022 ALP [Catalytic activity/Vol] 174 U/L 45-117 [facility] ALT [Catalytic activity/Vol] 54 U/L 16-61 [facility] CO2 [Moles/Vol] 26.0 mmol/L 21.0-32.0 [facility] Globulin (S) [Mass/Vol] 3.8 g/dL 2.2-4.2 [facility] Urea nitrogen/Creatinine [Mass ratio] 23.6 mg/mg 10-20 [facility] Laboratory - Hematology and Cell countsOrdered By: Dr. Barroso on 08-28-2022 Erythrocyte distribution width (RBC) [Entitic vol] 44.8 fL 35.1-43.9 [facility] Erythrocyte distribution width (RBC) [Ratio] 13.2 % 11.6-14.6 [facility] Immature granulocytes/100 WBC (Bld) 0.500 % 0.0-0.9 [facility] Comment on above: IG% - Immature Granu locytes (promyelocytes, myelocytes and metamyelocytes) > 1% indicates that a LEFT SHIFT is Present. MCH (RBC) [Entitic mass] 29.6 pg 27.0-32.0 [facility] Nucleated RBC/100 WBC (Bld) [Ratio] 0 % 0-5 [facility] MCHC Auto (RBC) [Mass/Vol]Or dered By: Dr. Barroso on 08-28-2022 MCHC (RBC) [Mass/Vol] 32.0 g/dL 32-36 [facility] No Panel InformationOrdered By: Dr. Barroso on 08-28-2022 Estimated Creatinine Clearance Calc 57.40 ml/min [facility] Estimated GFR (MDRD) Amer 66 mL/min >60 [facility] Comment on above: GFR Calc Estimated GFR (MDRD) Non-Af Amer 54 mL/min >60 [facility] Comment on above: Non- GFR Calc Platelets bldOrdered By: Dr. Barroso on 08-28-2022 Platelets (Bld) [#/Vol] 210 10*3/uL 150-450 [facility] Serum or plasma albumin regi urement (mass/volume)Ordered By: Dr. Barroso on 08-28-2022 Albumin [Mass/Vol] 3.5 g/dL 3.2-5.0 [facility] Serum or plasma albumin/glob ulin mass ratioOrdered By: Dr. Barroso on 08-28-2022 Albumin/Globulin [Mass ratio] 0.9 {ratio} 0.9-2.4 [facility] Serum or plasma calcium regi urement (mass/volume)Ordered By: Dr. Barroso on 08-28-2022 Calcium [Mass/Vol] 9.4 mg/dL 8.5-10.1 [facility] Serum or plasma creatinine m easurement (mass/volume)Ordered By: Dr. Barroso on 08-28-2022 Creatinine [Mass/Vol] 1.44 mg/dL 0.70-1.30 [facility] Comment on above: The validity of the calculated GFR & GFRAA in patients over 70 years has not been determined. Clinical correlation is essential. Serum or plasma urea nitroge n measurement (mass/volume)Ordered By: Dr. Barroso on 08-28-2022 Urea nitrogen [Mass/Vol] 34 mg/dL 7-18 [facility] Thin prep Papanicolaou smear with manual screeningOrdered By: Dr. Barroso on 08-28-2022 Thin prep Papanicolaou smear with manual screening 26 U/L 15-37 [facility] Thin prep Papanicolaou smear with manual screening 4 5-15 [facility] Glucose Glucometer (BldC) [M ass/Vol]Ordered By: Dona Medina on 08-08-2022 Glucose [Mass/Vol] 197 mg/dL 74-106 [facility] Comment on above: MANAGEMENT OF PATIEN T CARE PER NURSING PROTOCOL PROTEIN CREATININE RATIOon 1 10-03-2021 Protein/Creatinine (U) [Mass ratio] 0.08 mg/mg <0.15 mg/mg [facility] Protein/Creatinine (U) [Mass ratio]on 08-03-2022 Creatinine (U) [Mass/Vol] 80.0 mg/dL 20.0 - 300.0 mg/dL [facility] Protein (U) [Mass/Vol] 6 mg/dL 0 - 2 0 mg/dL [facility] URINALYSIS, DIPSTICK ONLYon 08-03-2022 Bilirubin Ql (U) Negative Negative [facility] Clarity (Unsp spec) Clear Clear [facility] Color (U) Light Yellow Yellow [facility] Glucose Test strip (U) [Mass/Vol] 3+ Abnormal Negative [facility] Hemoglobin Ql (U) Trace Abnormal Negative [facility] Ketones Ql (U) Negative Negative [facility] Leukocyte esterase Test strip Ql (U) Negative Negative [facility] Nitrite Ql (U) Negative Negative [facility] pH (U) 5.5 [pH] 5.0 - 8.0 [facility] Protein (U) [Mass/Vol] Negative Negative [facility] Specific gravity (U) [Rel density] 1.015 1.005 - 1.030 [facility] Urobilinogen Ql (U) Negative Negative [facility] HEMOGLOBIN A1C (POC)on 07-13 HbA1c (Bld) [Mass fraction] 10.6 % Abnormal 4.2 - 5.6 % [facility] Glucose Glucometer (dC) [M ass/Vol]Ordered By: Dona Medina on 07-09-2022 Glucose [Mass/Vol] 227 mg/dL 74-106 [facility] Comment on above: MANAGEMENT OF PATIEN T CARE PER NURSING PROTOCOL PROTEIN CREATININE RATIOon 1 Protein/Creatinine (U) [Mass ratio] 0.12 mg/mg <0.15 mg/mg [facility] Protein/Creatinine (U) [Mass ratio]on 07-05-2022 Creatinine (U) [Mass/Vol] 65.0 mg/dL 20.0 - 300.0 mg/dL [facility] Protein (U) [Mass/Vol] 8 mg/dL 0 - 2 0 mg/dL [facility] [facility] URINALYSIS, DIPSTICK ONLYon 07-05-2022 Bilirubin Ql (U) Negative Negative [facility] Clarity (Unsp spec) Clear Clear [facility] Color (U) Light Yellow Yellow [facility] Glucose Test strip (U) [Mass/Vol] 4+ Abnormal Negative [facility] Hemoglobin Ql (U) Negative Negative [facility] Ketones Ql (U) Negative Negative [facility] Leukocyte esterase Test strip Ql (U) Negative Negative [facility] Nitrite Ql (U) Negative Negative [facility] pH (U) 6.0 [pH] 5.0 - 8.0 [facility] Protein (U) [Mass/Vol] Negative Negative [facility] Specific gravity (U) [Rel density] 1.015 1.005 - 1.030 [facility] Urobilinogen Ql (U) Negative Negative [facility] CBC W Auto Differential pane l (Bld)on 06-08-2022 Abs Immature Gran 0.08 k/uL <0.10 k/uL [facility] Basophils (Bld) [#/Vol] 0.04 10*3/uL <0.11 k/uL [facility] Basophils/100 WBC (Bld) 0.4 % [facility] Differential cell count method Nom (Bld) Auto [facility] Eosinophils (Bld) [#/Vol] <0.46 k/uL [facility] Eosinophils/100 WBC (Bld) 0.2 % [facility] Erythrocyte distribution width (RBC) [Ratio] 13.1 % 11.5 - 15.0 % [facility] Hematocrit (Bld) [Volume fraction] 49.2 % 39.0 - 51.0 % [facility] Hemoglobin (Bld) [Mass/Vol] 15.8 g/dL 13.0 - 17.0 g/dL [facility] Immature Gran % 0.7 % [facility] Lymphocytes (Bld) [#/Vol] 1.42 10*3/uL 1.00 - 4.00 k/uL [facility] Lymphocytes/100 WBC (Bld) 12.6 % [facility] MCH (RBC) [Entitic mass] 28.8 pg 26. 0 - 34.0 pg [facility] MCHC (RBC) [Mass/Vol] 32.1 g/dL 30.5 - 36.0 g/dL [facility] MCV (RBC) [Entitic vol] 89.6 fL 80.0 - 100.0 fL [facility] Monocytes (Bld) [#/Vol] 0.99 10*3/uL High <0.87 k/uL [facility] Monocytes/100 WBC (Bld) 8.8 % [facility] Neutrophils (Bld) [#/Vol] 8.70 10*3/uL High 1.45 - 7.50 k/uL [facility] Neutrophils/100 WBC (Bld) 77.3 % [facility] Nucleated RBC (Bld) [#/Vol] <0.01 k/uL [facility] Nucleated RBC/100 WBC (Bld) [Ratio] 0.0 /100 WBC [facility] Platelet mean volume (Bld) [Entitic vol] 9.8 fL 9.0 - 12.7 fL [facility] Platelets (Bld) [#/Vol] 273 10*3/uL 150 - 400 k/uL [facility] RBC (Bld) [#/Vol] 5.49 10*6/uL 4.20 - 6.0 0 m/uL [facility] WBC (Bld) [#/Vol] 11.25 10*3/uL High 3.70 - 11.00 k/uL [facility] CMV DNA DETECTION AND QUANTo n 06-08-2022 CMV DNA CARMEN+probe Qn (P) Not detected CMV DNA Not Detected [facility] Comprehensive metabolic 2000 panelon 06-08-2022 Albumin [Mass/Vol] 3.9 g/dL 3.9 - 4.9 g/dL [facility] ALP [Catalytic activity/Vol] 259 U/L High 38 - 113 U/L [facility] ALT [Catalytic activity/Vol] 62 U/L High 10 - 54 U/L [facility] Anion gap [Moles/Vol] 12 mmol/L 9 - 18 mmol/L [facility] AST [Catalytic activity/Vol] 39 U/L 14 - 40 U/L [facility] Bilirubin [Mass/Vol] 0.4 mg/dL 0.2 - 1 .3 mg/dL [facility] Calcium [Mass/Vol] 10.5 mg/dL High 8.5 - 10. 2 mg/dL [facility] Chloride [Moles/Vol] 102 mmol/L 97 - 10 5 mmol/L [facility] CO2 [Moles/Vol] 23 mmol/L 22 - 30 mmol/L [facility] Creatinine [Mass/Vol] 1.58 mg/dL High 0.73 - 1.22 mg/dL [facility] Estimated Glomerular Filtration Rate 52 mL/min/1.73m Low >=60 mL/min/1.73 m [facility] Glucose [Mass/Vol] 204 mg/dL High 74 - 99 mg/dL [facility] Potassium [Moles/Vol] 4.9 mmol/L 3.7 - 5.1 mmol/L [facility] Protein [Mass/Vol] 7.4 g/dL 6.3 - 8.0 g/dL [facility] Sodium [Moles/Vol] 137 mmol/L 136 - 144 mmol/L [facility] Urea nitrogen [Mass/Vol] 31 mg/dL High 9 - 24 mg/dL [facility] Laboratory - Microbiology an d Antimicrobial susceptibilityon 06-08-2022 BK virus DNA CARMEN+probe [#/Vol] Not detected BK Virus DNA Not Detected by PCR. [facility] MAGNESIUM BLDon 06-08-2022 Magnesium [Mass/Vol] 1.7 mg/dL 1.7 - 2 .3 mg/dL [facility] PHOSPHORUS INORGANICon 06-08 Phosphate [Mass/Vol] 2.0 mg/dL Low 2.7 - 4 .8 mg/dL [facility] PROTEIN CREATININE RATIOon 0 06-08-2022 Protein/Creatinine (U) [Mass ratio] 67 mg/g <150 mg/g [facility] Protein/Creatinine (U) [Mass ratio]on 06-08-2022 Creatinine (U) [Mass/Vol] 74.7 mg/dL 20.0 - 300.0 mg/dL [facility] Protein (U) [Mass/Vol] 5 mg/dL 0 - 2 0 mg/dL [facility] TACROLIMUS/FK-506 BLon 06-08 Tacrolimus (Bld) [Mass/Vol] 9.9 ng/mL 5.0 - 20.0 ng/mL [facility] URINALYSIS, DIPSTICK ONLYon 06-08-2022 Bilirubin Ql (U) Negative Negative [facility] Clarity (Unsp spec) Clear Clear [facility] Color (U) Light Yellow Yellow [facility] Glucose Test strip (U) [Mass/Vol] 4+ Abnormal Negative [facility] Hemoglobin Ql (U) 2+ Abnormal Negative [facility] Ketones Ql (U) Negative Negative [facility] Leukocyte esterase Test strip Ql (U) Negative Negative [facility] Nitrite Ql (U) Negative Negative [facility] pH (U) 6.0 [pH] 5.0 - 8.0 [facility] Protein (U) [Mass/Vol] Negative Negative Cl [facility] Specific gravity (U) [Rel density] 1.016 1.005 - 1.030 [facility] Urobilinogen Ql (U) Negative Negative [facility] Basophil percentageon 2021 Bilirubin [Mass/Vol] 0.40 mg/dL 0.20-1.00 [facility] Work Phone: Comment on above: For patients on eltr ombopag therapy, use of Dimension [employer] TBIL is not recommended. Chloride [Moles/Vol] 103 mmol/L 98-107 [facility] Work Phone: Glucose [Mass/Vol] 175 mg/dL 74-106 [facility] Work Phone: Comment on above: Fasting Glucose resu lt greater than or equal to 126 mg/dL suggests DIABETES MELLITUS per A.D.A. criteria. Potassium [Moles/Vol] 4.6 mmol/L 3.5-5.1 [facility] Work Phone: Protein [Mass/Vol] 7.8 g/dL 6.4-8.2 [facility] Work Phone: Sodium [Moles/Vol] 139 mmol/L 136-145 [facility] Work Phone: Erythrocyte sedimentation ra bk 05-31-2022 ESR (Bld) [Velocity] 30 mm/h 0-20 [facility] Work Phone: Laboratory - Chemistry and C hemistry - challengeon 05-31-2022 ALP [Catalytic activity/Vol] 258 U/L 45-117 [facility] Work Phone: ALT [Catalytic activity/Vol] 68 U/L 16-61 [facility] Work Phone: CO2 [Moles/Vol] 30.0 mmol/L 21.0-32.0 [facility] Work Phone: Globulin (S) [Mass/Vol] 4.6 g/dL 2.2-4.2 [facility] Work Phone: Urea nitrogen/Creatinine [Mass ratio] 21.9 mg/mg 10-20 [facility] Work Phone: No Panel Informationon 05-31 Estimated Creatinine Clearance Calc 51.66 ml/min [facility] Work Phone: Estimated GFR (MDRD) Amer 58 mL/min >60 [facility] Work Phone: Comment on above: GFR Calc Estimated GFR (MDRD) Non-Af Amer 48 mL/min >60 [facility] Work Phone: Comment on above: Non- GFR Calc Serum or plasma albumin regi urement (mass/volume)on 05-31-2022 Albumin [Mass/Vol] 3.2 g/dL 3.2-5.0 [facility] Work Phone: Serum or plasma albumin/glob ulin mass ratioon 05-31-2022 Albumin/Globulin [Mass ratio] 0.7 {ratio} 0.9-2.4 [facility] Work Phone: Serum or plasma calcium regi urement (mass/volume)on 05-31-2022 Calcium [Mass/Vol] 10.1 mg/dL 8.5-10.1 [facility] Work Phone: Serum or plasma creatinine m easurement (mass/volume)on 05-31-2022 Creatinine [Mass/Vol] 1.60 mg/dL 0.70-1.30 [facility] Work Phone: Comment on above: The validity of the calculated GFR & GFRAA in patients over 70 years has not been determined. Clinical correlation is essential. Serum or plasma transthyreti n measurement (mass/volume)on 05-31-2022 Prealbumin [Mass/Vol] 21.0 mg/dL 20.0-40.0 [facility] Work Phone: Serum or plasma urea nitroge n measurement (mass/volume)on 05-31-2022 Urea nitrogen [Mass/Vol] 35 mg/dL 7-18 [facility] Work Phone: Thin prep Papanicolaou smear with manual screeningon 05-31-2022 Thin prep Papanicolaou smear with manual screening 30 U/L 15-37 [facility] Work Phone: Thin prep Papanicolaou smear with manual screening 6 5-15 [facility] Work Phone: Whole blood hemoglobin A1c/t otal hemoglobin ratio (mass fraction)on 05-31-2022 HbA1c (Bld) [Mass fraction] 10.5 % 3.8-5.6 [facility] Work Phone: Comment on above: Normal < 5.7 % Predi abetic 5.7 - 6.4 % Diabetic >or= 6.5 % Please note range changes. Basophil percentageon 2021 Chloride [Moles/Vol] 104 mmol/L 98-107 [facility] Work Phone: Glucose [Mass/Vol] 361 mg/dL 74-106 [facility] Work Phone: Comment on above: Glucose result great er than or equal to 200 mg/dLsuggests DIABETES MELLITUS per A.D.A. criteria. Potassium [Moles/Vol] 5.0 mmol/L 3.5-5.1 [facility] Work Phone: Sodium [Moles/Vol] 137 mmol/L 136-145 [facility] Work Phone: WBC (Bld) [#/Vol] 6.7 10*3/uL 4.4-11.0 [facility] Work Phone: Blood erythrocytes count (nu mber/volume)on 04-30-2022 RBC (Bld) [#/Vol] 5.09 10*6/uL 4.6-6.2 [facility] Work Phone: Blood hemoglobin measurement (mass/volume)on 04-30-2022 Hemoglobin (Bld) [Mass/Vol] 15.0 g/dL 13.0-16.5 [facility] Work Phone: Blood platelet mean volumeon 04-30-2022 Platelet mean volume (Bld) [Entitic vol] 10.8 fL 6.2-12.0 [facility] Work Phone: Determination of erythrocyte mean corpuscular volume (MCV)on 04-30-2022 MCV (RBC) [Entitic vol] 93.3 fL 80-94 [facility] Work Phone: Erythrocyte sedimentation ra bk 04-30-2022 ESR (Bld) [Velocity] 42 mm/h 0-20 [facility]: Hematocrit Auto (Bld) [Volum e fraction]on 04-30-2022 Hematocrit (Bld) [Volume fraction] 47.5 % 40-54 [facility] Work Phone: Laboratory - Chemistry and C hemistry - challengeon 04-30-2022 CO2 [Moles/Vol] 26.0 mmol/L 21.0-32.0 [facility] Work Phone: Urea nitrogen/Creatinine [Mass ratio] 22.2 mg/mg 10-20 [facility] Work Phone: Laboratory - Hematology and Cell countson 04-30-2022 Erythrocyte distribution width (RBC) [Entitic vol] 50.6 fL 35.1-43.9 [facility] Work Phone: Erythrocyte distribution width (RBC) [Ratio] 14.6 % 11.6-14.6 [facility] Work Phone: MCH (RBC) [Entitic mass] 29.5 pg 27.0-32.0 [facility] Work Phone: MCHC Auto (RBC) [Mass/Vol]on 04-30-2022 MCHC (RBC) [Mass/Vol] 31.6 g/dL 32-36 [facility] Work [facility]: No Panel Informationon 04-30 Estimated GFR (MDRD) Amer 61 mL/min >60 [facility] Work Phone: Comment on above: GFR Calc Estimated GFR (MDRD) Non-Af Amer 51 mL/min >60 [facility] Work Phone: Comment on above: Non- GFR Calc Platelets bldon 04-30-2022 Platelets (Bld) [#/Vol] 227 10*3/uL 150-450 [facility] Work Phone: Serum or plasma calcium regi urement (mass/volume)on 04-30-2022 Calcium [Mass/Vol] 9.4 mg/dL 8.5-10.1 [facility] Work Phone: Serum or plasma creatinine m easurement (mass/volume)on 04-30-2022 Creatinine [Mass/Vol] 1.53 mg/dL 0.70-1.30 [facility] Work Phone: Comment on above: The validity of the calculated GFR & GFRAA in patients over 70 years has not been determined. Clinical correlation is essential. Serum or plasma urea nitroge n measurement (mass/volume)on 04-30-2022 Urea nitrogen [Mass/Vol] 34 mg/dL 7-18 [facility] Work Phone: Thin prep Papanicolaou smear with manual screeningon 04-30-2022 Thin prep Papanicolaou smear with manual screening 7 5-15 [facility] Work Phone: Vancomycin troughon 04-30-20 Vancomycin trough [Mass/Vol] 11.0 ug/mL 5.0-15.0 [facility] Work Phone: Comment on above: VANCOMYCIN STANDARED DRUG THERAPY TROUGH LEVEL: 5.0 - 15.0 mg/L VANCOMYCIN HIGH INTENSITY THERAPY TROUGH LEVEL: 15.0 - 20.0 mg/L High Intensity therapy recommended for serious lifethreatening infections include:- Vzcdywwdkn-Ikymgafequux-Uykfclxbh (Ventilator/Healtcare Associated)-Sepsis PLEASE CONTACT PHARMACY SERVICES (#[id number]) FOR INTERPRETATIONOF RESULTS. Serum or plasma vancomycin m easurement (mass/volume)on 04-23-2022 Vancomycin [Mass/Vol] 13.7 ug/mL 0.0-15.0 [facility] Work Phone: Comment on above: VANCOMYCIN STANDARD DRUG THERAPY: CRITICAL VALUE IS > 15.0 mg/L VANCOMYCIN HIGH INTENSITY THERAPY: CRITICAL VALUE IS > 20.0 mg/L PLEASE CONTACT PHARMACY SERVICES (#[id number]) FOR INTERPRETATIONOF RESULTS. THIS RESULT DOES NOT REPRESENT A PEAK OR TROUGHLEVEL FOR THIS DRUG. Basophil percentageon 2021 Chloride [Moles/Vol] 106 mmol/L 98-107 [facility] Work Phone: Glucose [Mass/Vol] 429 mg/dL 74-106 [facility] Work Phone: Comment on above: Glucose result great er than or equal to 200 mg/dLsuggests DIABETES MELLITUS per A.D.A. criteria. Potassium [Moles/Vol] 4.3 mmol/L 3.5-5.1 [facility] Work Phone: Sodium [Moles/Vol] 137 mmol/L 136-145 [facility] Work Phone: WBC (Bld) [#/Vol] 6.3 10*3/uL 4.4-11.0 [facility] Work Phone: Blood erythrocytes count (nu mber/volume)on 04-09-2022 RBC (Bld) [#/Vol] 4.71 10*6/uL 4.6-6.2 [facility] Work Phone: Blood hemoglobin measurement (mass/volume)on 04-09-2022 Hemoglobin (Bld) [Mass/Vol] 13.6 g/dL 13.0-16.5 [facility] Work Phone: Blood platelet mean volumeon 04-09-2022 Platelet mean volume (Bld) [Entitic vol] 10.6 fL 6.2-12.0 [facility] Work Phone: Determination of erythrocyte mean corpuscular volume (MCV)on 04-09-2022 MCV (RBC) [Entitic vol] 93.2 fL 80-94 [facility] Work Phone: Erythrocyte sedimentation ra bk 04-09-2022 ESR (Bld) [Velocity] 31 mm/h 0-20 [facility] Work Phone: Hematocrit Auto (Bld) [Volum e fraction]on 04-09-2022 Hematocrit (Bld) [Volume fraction] 43.9 % 40-54 [facility] Work Phone: Laboratory - Chemistry and C hemistry - challengeon 04-09-2022 CO2 [Moles/Vol] 27.0 mmol/L 21.0-32.0 [facility] Work Phone: Urea nitrogen/Creatinine [Mass ratio] 20.3 mg/mg 10-20 [facility] Work Phone: Laboratory - Hematology and Cell countson 04-09-2022 Erythrocyte distribution width (RBC) [Entitic vol] 48.0 fL 35.1-43.9 [facility] Work Phone: Erythrocyte distribution width (RBC) [Ratio] 14.2 % 11.6-14.6 [facility] Work Phone: MCH (RBC) [Entitic mass] 28.9 pg 27.0-32.0 [facility] Work Phone: MCHC Auto (RBC) [Mass/Vol]on 04-09-2022 MCHC (RBC) [Mass/Vol] 31.0 g/dL 32-36 [facility] Work Phone: No Panel Informationon 04-09 Estimated GFR (MDRD) Amer 64 mL/min >60 [facility] Work Phone: Comment on above: GFR Calc Estimated GFR (MDRD) Non-Af Amer 53 mL/min >60 [facility] Work Phone: Comment on above: Non- GFR Calc Platelets bldon 04-09-2022 Platelets (Bld) [#/Vol] 242 10*3/uL 150-450 [facility] Work Phone: Serum or plasma calcium regi urement (mass/volume)on 04-09-2022 Calcium [Mass/Vol] 8.9 mg/dL 8.5-10.1 [facility] Work Phone: Serum or plasma creatinine m easurement (mass/volume)on 04-09-2022 Creatinine [Mass/Vol] 1.48 mg/dL 0.70-1.30 [facility] Work Phone: Comment on above: The validity of the calculated GFR & GFRAA in patients over 70 years has not been determined. Clinical correlation is essential. Serum or plasma urea nitroge n measurement (mass/volume)on 04-09-2022 Urea nitrogen [Mass/Vol] 30 mg/dL 7-18 [facility] Work Phone: Thin prep Papanicolaou smear with manual screeningon 04-09-2022 Thin prep Papanicolaou smear with manual screening 4 5-15 [facility] Work Phone: Vancomycin troughon 04-09-20 22 Vancomycin trough [Mass/Vol] 15.1 ug/mL 5.0-15.0 [facility] Work Phone: Comment on above: VANCOMYCIN STANDARED DRUG THERAPY TROUGH LEVEL: 5.0 - 15.0 mg/L VANCOMYCIN HIGH INTENSITY THERAPY TROUGH LEVEL: 15.0 - 20.0 mg/L High Intensity therapy recommended for serious lifethreatening infections include:- Tfuiumtsjd-Jlzfrlakujxy-Dpabzuknn (Ventilator/Healtcare Associated)-Sepsis PLEASE CONTACT PHARMACY SERVICES (#[id number]) FOR INTERPRETATIONOF RESULTS. Basophil percentageon 2021 Chloride [Moles/Vol] 105 mmol/L 98-107 [facility] Work Phone: Glucose [Mass/Vol] 269 mg/dL 74-106 [facility] Work Phone: Comment on above: Glucose result great er than or equal to 200 mg/dLsuggests DIABETES MELLITUS per A.D.A. criteria. Potassium [Moles/Vol] 4.4 mmol/L 3.5-5.1 [facility] Work Phone: Sodium [Moles/Vol] 137 mmol/L 136-145 [facility] Work Phone: Laboratory - Chemistry and C hemistry - challengeon 04-05-2022 CO2 [Moles/Vol] 25.0 mmol/L 21.0-32.0 [facility] Work Phone: Urea nitrogen/Creatinine [Mass ratio] 26.1 mg/mg 10-20 [facility] Work Phone: No Panel Informationon 04-05 Estimated GFR (MDRD) Amer 67 mL/min >60 [facility] Work Phone: Comment on above: GFR Calc Estimated GFR (MDRD) Non-Af Amer 55 mL/min >60 [facility] Work Phone: Comment on above: Non- GFR Calc Serum or plasma calcium regi urement (mass/volume)on 04-05-2022 Calcium [Mass/Vol] 9.1 mg/dL 8.5-10.1 [facility] Work Phone: Serum or plasma creatinine m easurement (mass/volume)on 04-05-2022 Creatinine [Mass/Vol] 1.42 mg/dL 0.70-1.30 [facility] Work Phone: Comment on above: The validity of the calculated GFR & GFRAA in patients over 70 years has not been determined. Clinical correlation is essential. Serum or plasma urea nitroge n measurement (mass/volume)on 04-05-2022 Urea nitrogen [Mass/Vol] 37 mg/dL 7-18 [facility] Work Phone: Thin prep Papanicolaou smear with manual screeningon 04-05-2022 Thin prep Papanicolaou smear with manual screening 7 5-15 [facility] Work Phone: Vancomycin troughon 04-05-20 22 Vancomycin trough [Mass/Vol] 20.1 ug/mL 5.0-15.0 [facility] Work Phone: Comment on above: VANCOMYCIN STANDARED DRUG THERAPY TROUGH LEVEL: 5.0 - 15.0 mg/L VANCOMYCIN HIGH INTENSITY THERAPY TROUGH LEVEL: 15.0 - 20.0 mg/L High Intensity therapy recommended for serious lifethreatening infections include:- Mubzmafuuq-Hgtllymkowkk-Hwodgookf (Ventilator/Healtcare Associated)-Sepsis PLEASE CONTACT PHARMACY SERVICES (#[id number]) FOR INTERPRETATIONOF RESULTS. Basophil percentageon 2021 Chloride [Moles/Vol] 110 mmol/L 98-107 [facility] Work Phone: Glucose [Mass/Vol] 115 mg/dL 74-106 [facility] Work Phone: Comment on above: Fasting Glucose resu lt from 100 to 125 mg/dL suggests IMPAIRED HOMEOSTASIS per A.D.A. criteria. Potassium [Moles/Vol] 4.3 mmol/L 3.5-5.1 [facility] Work Phone: Comment on above: Moderate Hemolysis, Result may be falsely increased. Sodium [Moles/Vol] 139 mmol/L 136-145 [facility] Work Phone: WBC (Bld) [#/Vol] 9.0 10*3/uL 4.4-11.0 [facility] Work Phone: Blood erythrocytes count (nu mber/volume)on 04-02-2022 RBC (Bld) [#/Vol] 4.88 10*6/uL 4.6-6.2 [facility] Work Phone: Blood hemoglobin measurement (mass/volume)on 04-02-2022 Hemoglobin (Bld) [Mass/Vol] 14.2 g/dL 13.0-16.5 [facility] Work Phone: Blood platelet mean volumeon 04-02-2022 Platelet mean volume (Bld) [Entitic vol] 10.3 fL 6.2-12.0 [facility] Work Phone: Determination of erythrocyte mean corpuscular volume (MCV)on 04-02-2022 MCV (RBC) [Entitic vol] 94.3 fL 80-94 [facility] Work Phone: Erythrocyte sedimentation ra bk 04-02-2022 ESR (Bld) [Velocity] 48 mm/h 0-20 [facility] Work Phone: Hematocrit Auto (Bld) [Volum e fraction]on 04-02-2022 Hematocrit (Bld) [Volume fraction] 46.0 % 40-54 [facility] Work Phone: Laboratory - Chemistry and C hemistry - challengeon 04-02-2022 CO2 [Moles/Vol] 24.0 mmol/L 21.0-32.0 [facility] Work Phone: Urea nitrogen/Creatinine [Mass ratio] 19.6 mg/mg 10-20 [facility] Work Phone: Laboratory - Hematology and Cell countson 04-02-2022 Erythrocyte distribution width (RBC) [Entitic vol] 45.1 fL 35.1-43.9 [facility] Work Phone: Erythrocyte distribution width (RBC) [Ratio] 13.2 % 11.6-14.6 [facility] Work Phone: MCH (RBC) [Entitic mass] 29.1 pg 27.0-32.0 [facility] Work Phone: MCHC Auto (RBC) [Mass/Vol]on 04-02-2022 MCHC (RBC) [Mass/Vol] 30.9 g/dL 32-36 [facility] Work Phone: No Panel Informationon 04-02 Estimated GFR (MDRD) Amer 62 mL/min >60 [facility] Work Phone: Comment on above: GFR Calc Estimated GFR (MDRD) Non-Af Amer 51 mL/min >60 [facility] Work Phone: Comment on above: Non- GFR Calc Platelets bldon 04-02-2022 Platelets (Bld) [#/Vol] 277 10*3/uL 150-450 [facility] Work Phone: Serum or plasma calcium regi urement (mass/volume)on 04-02-2022 Calcium [Mass/Vol] 9.1 mg/dL 8.5-10.1 [facility] Work Phone: Serum or plasma creatinine m easurement (mass/volume)on 04-02-2022 Creatinine [Mass/Vol] 1.53 mg/dL 0.70-1.30 [facility] Work Phone: Comment on above: The validity of the calculated GFR & GFRAA in patients over 70 years has not been determined. Clinical correlation is essential. Serum or plasma urea nitroge n measurement (mass/volume)on 04-02-2022 Urea nitrogen [Mass/Vol] 30 mg/dL 7-18 [facility] Work Phone: Thin prep Papanicolaou smear with manual screeningon 04-02-2022 Thin prep Papanicolaou smear with manual screening 5 5-15 [facility] Work Phone: Vancomycin troughon 04-02-20 Vancomycin trough [Mass/Vol] 24.2 ug/mL 5.0-15.0 [facility] Work Phone: Comment on above: VANCOMYCIN STANDARED DRUG THERAPY TROUGH LEVEL: 5.0 - 15.0 mg/L VANCOMYCIN HIGH INTENSITY THERAPY TROUGH LEVEL: 15.0 - 20.0 mg/L High Intensity therapy recommended for serious lifethreatening infections include:- Uruqqynmuq-Rqhutdripbqr-Juhdihnbf (Ventilator/Healtcare Associated)-Sepsis PLEASE CONTACT PHARMACY SERVICES (#[id number]) FOR INTERPRETATIONOF RESULTS. Absolute lymphocyte counton 03-28-2022 Lymphocytes Auto (Unsp spec) [#/Vol] 0.96 10*3/uL 0.83-4.51 [facility] Work Phone: Basophil percentageon 2021 Basophils/100 WBC (Bld) 0.4 % 0-1 [facility] Work Phone: Chloride [Moles/Vol] 105 mmol/L 98-107 [facility] Work [facility]: Eosinophils/100 WBC (Bld) 1.2 % 0-5 [facility] Work Phone: Glucose [Mass/Vol] 336 mg/dL 74-106 [facility] Work Phone: Comment on above: Glucose result great er than or equal to 200 mg/dLsuggests DIABETES MELLITUS per A.D.A. criteria. Neutrophils (Bld) [#/Vol] 7.3 10*3/uL 2.0-7.7 [facility] Work Phone: Neutrophils/100 WBC (Bld) 78.9 % 47-70 [facility] Work Phone: Potassium [Moles/Vol] 4.3 mmol/L 3.5-5.1 [facility] Work Phone: Sodium [Moles/Vol] 139 mmol/L 136-145 [facility] Work Phone: WBC (Bld) [#/Vol] 9.2 10*3/uL 4.4-11.0 [facility] Work Phone: Blood erythrocytes count (nu mber/volume)on 03-28-2022 RBC (Bld) [#/Vol] 4.84 10*6/uL 4.6-6.2 [facility] Work Phone: [phone] Blood hemoglobin measurement (mass/volume)on 03-28-2022 Hemoglobin (Bld) [Mass/Vol] 13.8 g/dL 13.0-16.5 [facility] Work Phone: [phone] Blood lymphocytes/100 leukoc yteson 03-28-2022 Lymphocytes/100 WBC (Bld) 10.4 % 19-41 [facility] Work Phone: [phone] Blood monocytes/100 leukocyt eson 03-28-2022 Monocytes/100 WBC (Bld) 8.2 % 0-10 [facility] Work Phone: [phone] Blood platelet mean volumeon 03-28-2022 Platelet mean volume (Bld) [Entitic vol] 10.5 fL 6.2-12.0 [facility] Work Phone: Determination of erythrocyte mean corpuscular volume (MCV)on 03-28-2022 MCV (RBC) [Entitic vol] 90.7 fL 80-94 [facility] Work Phone: Glucose Glucometer (BldC) [M ass/Vol]on 03-28-2022 Glucose [Mass/Vol] 186 mg/dL 74-106 [facility] Work Phone: Comment on above: MANAGEMENT OF PATIEN T CARE PER NURSING PROTOCOL Hematocrit Auto (Bld) [Volum e fraction]on 03-28-2022 Hematocrit (Bld) [Volume fraction] 43.9 % 40-54 [facility] Work Phone: Laboratory - Chemistry and C hemistry - challengeon 03-28-2022 CO2 [Moles/Vol] 28.0 mmol/L 21.0-32.0 [facility] Work Phone: Urea nitrogen/Creatinine [Mass ratio] 13.9 mg/mg 10-20 [facility] Work Phone: Laboratory - Hematology and Cell countson 03-28-2022 Erythrocyte distribution width (RBC) [Entitic vol] 42.6 fL 35.1-43.9 [facility] Work Phone: Erythrocyte distribution width (RBC) [Ratio] 12.8 % 11.6-14.6 [facility] Work Phone: Immature granulocytes/100 WBC (Bld) 0.900 % 0.0-0.9 [facility] Work Phone: Comment on above: IG% - Immature Granu locytes (promyelocytes, myelocytes and metamyelocytes) > 1% indicates that a LEFT SHIFT is Present. MCH (RBC) [Entitic mass] 28.5 pg 27.0-32.0 [facility] Work Phone: Nucleated RBC/100 WBC (Bld) [Ratio] 0 % 0-5 [facility] Work Phone: MCHC Auto (RBC) [Mass/Vol]on 03-28-2022 MCHC (RBC) [Mass/Vol] 31.4 g/dL 32-36 [facility] Work Phone: No Panel Informationon 03-28 Estimated Creatinine Clearance Calc 67.75 ml/min [facility] Work Phone: Estimated GFR (MDRD) Amer 80 mL/min >60 [facility] Work Phone: Comment on above: GFR Calc Estimated GFR (MDRD) Non-Af Amer 66 mL/min >60 [facility] Work Phone: Comment on above: Non- GFR Calc Platelets bldon 03-28-2022 Platelets (Bld) [#/Vol] 297 10*3/uL 150-450 [facility] Work Phone: Serum or plasma calcium regi urement (mass/volume)on 03-28-2022 Calcium [Mass/Vol] 8.8 mg/dL 8.5-10.1 [facility] Work Phone: Serum or plasma creatinine m easurement (mass/volume)on 03-28-2022 Creatinine [Mass/Vol] 1.22 mg/dL 0.70-1.30 [facility] Work Phone: Comment on above: The validity of the calculated GFR & GFRAA in patients over 70 years has not been determined. Clinical correlation is essential. Serum or plasma urea nitroge n measurement (mass/volume)on 03-28-2022 Urea nitrogen [Mass/Vol] 17 mg/dL 03-26 [facility] Work Phone: Thin prep Papanicolaou smear with manual screeningon 03-28-2022 Thin prep Papanicolaou smear with manual screening 6 5-15 [facility] Work Phone: Vancomycin troughon 03-27-20 Vancomycin trough [Mass/Vol] 15.1 ug/mL 5.0-15.0 [facility] Work Phone: Comment on above: VANCOMYCIN STANDARED DRUG THERAPY TROUGH LEVEL: 5.0 - 15.0 mg/L VANCOMYCIN HIGH INTENSITY THERAPY TROUGH LEVEL: 15.0 - 20.0 mg/L High Intensity therapy recommended for serious lifethreatening infections include:- Mouophntnk-Tvvwlylfyfzl-Mrwrjyqhz (Ventilator/Healtcare Associated)-Sepsis PLEASE CONTACT PHARMACY SERVICES (#[id number]) FOR INTERPRETATIONOF RESULTS. Basophil percentageon 2021 Bilirubin [Mass/Vol] 0.60 mg/dL 0.20-1.00 [facility] Work Phone: Comment on above: For patients on eltr ombopag therapy, use of Dimension Pinnacle TBIL is not recommended. Protein [Mass/Vol] 5.8 g/dL 6.4-8.2 [facility] Work Phone: Laboratory - Chemistry and C hemistry - challengeon 03-26-2022 ALP [Catalytic activity/Vol] 175 U/L 45-117 [facility] Work Phone: ALT [Catalytic activity/Vol] 57 U/L 16-61 [facility] Work Phone: Globulin (S) [Mass/Vol] 3.8 g/dL 2.2-4.2 [facility] Work Phone: Serum or plasma albumin regi urement (mass/volume)on 03-26-2022 Albumin [Mass/Vol] 2.0 g/dL 3.2-5.0 [facility] Work Phone: Serum or plasma albumin/glob ulin mass ratioon 03-26-2022 Albumin/Globulin [Mass ratio] 0.5 {ratio} 0.9-2.4 [facility] Work Phone: Thin prep Papanicolaou smear with manual screeningon 03-26-2022 Thin prep Papanicolaou smear with manual screening 35 U/L 15-37 [facility] Work Phone: Absolute lymphocyte counton 03-24-2022 Lymphocytes Auto (Unsp spec) [#/Vol] 1.16 10*3/uL 0.83-4.51 [facility] Work Phone: Basophil percentageon 2021 Basophils/100 WBC (Bld) 0.2 % 0-1 [facility] Work Phone: Chloride [Moles/Vol] 100 mmol/L 98-107 [facility] Work Phone: Eosinophils/100 WBC (Bld) 0.1 % 0-5 [facility] Work Phone: Glucose [Mass/Vol] 397 mg/dL 74-106 [facility] Work Phone: Comment on above: Glucose result great er than or equal to 200 mg/dLsuggests DIABETES MELLITUS per A.D.A. criteria. Lactate [Moles/Vol] 1.9 mmol/L 0.4-2.0 [facility] Work Phone: Neutrophils (Bld) [#/Vol] 13.0 10*3/uL 2.0-7.7 [facility] Work Phone: Neutrophils/100 WBC (Bld) 80.9 % 47-70 [facility] Work Phone: Potassium [Moles/Vol] 4.7 mmol/L 3.5-5.1 [facility] Work Phone: Comment on above: Slight Hemolysis, Re sult may be falsely increased. Sodium [Moles/Vol] 132 mmol/L 136-145 [facility] Work Phone: WBC (Bld) [#/Vol] 16.1 10*3/uL 4.4-11.0 [facility] Work Phone: Blood erythrocytes count (nu mber/volume)on 03-24-2022 RBC (Bld) [#/Vol] 5.35 10*6/uL 4.6-6.2 [facility] Work Phone: Blood hemoglobin measurement (mass/volume)on 03-24-2022 Hemoglobin (Bld) [Mass/Vol] 15.4 g/dL 13.0-16.5 [facility] Work Phone: Blood lymphocytes/100 leukoc yteson 03-24-2022 Lymphocytes/100 WBC (Bld) 7.2 % 19-41 [facility] Work Phone: [phone] Blood manual differential co mment interpretation (narrative result)on 03-24-2022 Manual differential comment Vernon (Bld) [Interp] SCANNED [facility] Work Phone: Manual differential comment Vernon (Bld) [Interp] SCANNED [facility] Work Phone: Blood monocytes/100 leukocyt eson 03-24-2022 Monocytes/100 WBC (Bld) 10.9 % 0-10 [facility] Work Phone: Blood platelet mean volumeon 03-24-2022 Platelet mean volume (Bld) [Entitic vol] 10.1 fL 6.2-12.0 [facility] Work Phone: Determination of erythrocyte mean corpuscular volume (MCV)on 03-24-2022 MCV (RBC) [Entitic vol] 90.3 fL 80-94 [facility] Work Phone: Erythrocyte sedimentation ra bk 03-24-2022 ESR (Bld) [Velocity] 92 mm/h 0-20 [facility] Work Phone: Hematocrit Auto (Bld) [Volum e fraction]on 03-24-2022 Hematocrit (Bld) [Volume fraction] 48.3 % 40-54 [facility] Work Phone: Laboratory - Chemistry and C hemistry - challengeon 03-24-2022 CO2 [Moles/Vol] 24.0 mmol/L 21.0-32.0 [facility] Work Phone: Magnesium [Mass/Vol] 2.2 mg/dL 1.6-2.6 [facility] Work Phone: Comment on above: Slight Hemolysis, Re sult may be falsely increased. Urea nitrogen/Creatinine [Mass ratio] 14.6 mg/mg 10-20 [facility] Work Phone: Laboratory - Hematology and Cell countson 03-24-2022 Erythrocyte distribution width (RBC) [Entitic vol] 42.1 fL 35.1-43.9 [facility] Work Phone: [phone] Erythrocyte distribution width (RBC) [Ratio] 12.8 % 11.6-14.6 [facility] Work Phone: Immature granulocytes/100 WBC (Bld) 0.700 % 0.0-0.9 [facility] Work Phone: Comment on above: IG% - Immature Granu locytes (promyelocytes, myelocytes and metamyelocytes) > 1% indicates that a LEFT SHIFT is Present. MCH (RBC) [Entitic mass] 28.8 pg 27.0-32.0 [facility] Work Phone: Nucleated RBC/100 WBC (Bld) [Ratio] 0 % 0-5 [facility] Work Phone: MCHC Auto (RBC) [Mass/Vol]on 03-24-2022 MCHC (RBC) [Mass/Vol] 31.9 g/dL 32-36 [facility] Work Phone: No Panel Informationon 03-24 Methicillin-Resist S.aureus DNA PCR Negative Negative [facility] Work Phone: Estimated Creatinine Clearance Calc 36.57 ml/min [facility] Work Phone: Estimated GFR (MDRD) Amer 39 mL/min >60 [facility] Work Phone: Comment on above: GFR Calc Estimated GFR (MDRD) Non-Af Amer 32 mL/min >60 [facility] Work Phone: Comment on above: Non- GFR Calc Tacrolimus (Prograf) Level 14.1 ng/mL 2.0-20.0 [facility] Work Phone: Comment on above: Trough (immediately following transplant) 15.0 Trough (steady state, 2 weeks or more after transplant): 3.0 - 8.0 Performed by LC-MS/MS technology.Performed at: [address] [id number] Director: Zechariah Cotton MD, Phone: [phone] Platelets bldon 03-24-2022 Platelets (Bld) [#/Vol] 249 10*3/uL 150-450 [facility] Work Phone: Review by pathologiston 03-09 Pathologist review Vernon (Unsp spec) [Interp] Reviewed [facility] Work Phone: Comment on above: Previous reported re sult: Eri harley Edited by: RGOOD on 03/26/22:1201Neutrophilic leukocytosis.Clinical correlation suggested.Robbie Castro D.O. 03/26/22 AMENDED REPORT 03/26/22 1201 PATH REV previously reported as: Eri harley Pathologist review Vernon (Unsp spec) [Interp] Eri souza [facility] Work Phone: Serum or plasma C reactive p rotein measurement (mass/volume)on 03-24-2022 CRP [Mass/Vol] 187.00 mg/L 0.0-3.0 [facility] Work Phone: Comment on above: C-Reactive Protein ( CRP) provides useful information for thediagnosis, therapy and monitoring of inflammatory processesand associated diseases. For the evaluation of Relative Riskfor Cardiovascular Disease, a High Sensitivity CRP (HSCRP)should be ordered. Serum or plasma calcium regi urement (mass/volume)on 03-24-2022 Calcium [Mass/Vol] 9.6 mg/dL 8.5-10.1 [facility] Work Phone: Serum or plasma creatinine m easurement (mass/volume)on 03-24-2022 Creatinine [Mass/Vol] 2.26 mg/dL 0.70-1.30 [facility] Work Phone: Comment on above: The validity of the calculated GFR & GFRAA in patients over 70 years has not been determined. Clinical correlation is essential. Serum or plasma urea nitroge n measurement (mass/volume)on 03-24-2022 Urea nitrogen [Mass/Vol] 33 mg/dL 7-18 [facility] Work Phone: Staphylococcus aureus DNA de tection by probe and target amplification methodon 03-24-2022 S. aureus DNA CARMEN+probe Ql (Unsp spec) Positive Negative [facility] Work Phone: Thin prep Papanicolaou smear with manual screeningon 03-24-2022 Thin prep Papanicolaou smear with manual screening 8 5-15 [facility] Work Phone: Whole blood hemoglobin A1c/t otal hemoglobin ratio (mass fraction)on 03-24-2022 HbA1c (Bld) [Mass fraction] 10.5 % 3.8-5.6 [facility] Work Phone: Comment on above: Normal < 5.7 % Predi abetic 5.7 - 6.4 % Diabetic >or= 6.5 % Please note range changes. URINALYSIS, DIPSTICK ONLYon 03-08-2022 Bilirubin Ql (U) Negative Negative [facility] Clarity (Unsp spec) Clear Clear [facility] Color (U) Light Yellow Yellow [facility] Glucose Test strip (U) [Mass/Vol] 4+ Abnormal Negative [facility] Hemoglobin Ql (U) 1+ Abnormal Negative [facility] Ketones Ql (U) Negative Negative [facility] Leukocyte esterase Test strip Ql (U) Negative Negative [facility] Nitrite Ql (U) Negative Negative [facility] pH (U) 5.5 [pH] 5.0 - 8.0 [facility] Protein (U) [Mass/Vol] Negative Negative [facility] Specific gravity (U) [Rel density] 1.015 1.005 - 1.030 [facility] Urobilinogen Ql (U) Negative Negative [facility] URINALYSIS, DIPSTICK ONLYon 12-08-2021 Bilirubin Ql (U) Negative Negative [facility] Clarity (Unsp spec) Clear Clear [facility] Color (U) Light Yellow Yellow [facility] Glucose Test strip (U) [Mass/Vol] 4+ Abnormal Negative [facility] Hemoglobin Ql (U) 2+ Abnormal Negative [facility] Ketones Ql (U) Negative Negative [facility] Leukocyte esterase Test strip Ql (U) Negative Negative [facility] Nitrite Ql (U) Negative Negative [facility] pH (U) 6.0 [pH] 5.0 - 8.0 [facility] Protein (U) [Mass/Vol] Negative Negative [facility] Specific gravity (U) [Rel density] 1.013 1.005 - 1.030 [facility] Urobilinogen Ql (U) 1+ Abnormal Negative [facility] Absolute lymphocyte counton 12-04-2021 Lymphocytes Auto (Unsp spec) [#/Vol] 1.18 10*3/uL 0.83-4.51 [facility] Work Phone: Bacteria identified Anaer cx Nom (Unsp spec)on 12-04-2021 Anaerobic Culture Prevotella bivia [facility] Work Phone: Anaerobic Culture Anaerobic cocci [facility] Work Phone: Bacteria identified Cx Nom ( Wound)on 12-04-2021 Wound Culture Enterococcus faecalis [facility] Work Phone: Wound Culture Staphylococcus homin is hominis [facility] Work Phone: Wound Culture Corynebacterium amycolatum [facility] Work Phone: Wound Culture Streptococcus mitis/ oralis [facility] Work Phone: Wound Culture Actinomyces odontolyticus [facility] Work Phone: Basophil percentageon 2021 Basophils/100 WBC (Bld) 0.1 % 0-1 [facility] Work Phone: Bilirubin [Mass/Vol] 0.30 mg/dL 0.20-1.00 [facility] Work Phone: Comment on above: For patients on eltr ombopag therapy, use of Dimension Pinnacle TBIL is not recommended. Chloride [Moles/Vol] 110 mmol/L 98-107 [facility] Work Phone: Eosinophils/100 WBC (Bld) 0.4 % 0-5 [facility] Work Phone: Glucose [Mass/Vol] 211 mg/dL 74-106 [facility] Work Phone: Comment on above: Glucose result great er than or equal to 200 mg/dLsuggests DIABETES MELLITUS per A.D.A. criteria. Neutrophils (Bld) [#/Vol] 6.1 10*3/uL 2.0-7.7 [facility] Work Phone: Neutrophils/100 WBC (Bld) 75.1 % 47-70 [facility] Work Phone: Potassium [Moles/Vol] 4.6 mmol/L 3.5-5.1 [facility] Work Phone: Protein [Mass/Vol] 7.0 g/dL 6.4-8.2 [facility] Work [facility]: Sodium [Moles/Vol] 139 mmol/L 136-145 [facility] Work Phone: WBC (Bld) [#/Vol] 8.1 10*3/uL 4.4-11.0 [facility] Work Phone: Blood erythrocytes count (nu mber/volume)on 12-04-2021 RBC (Bld) [#/Vol] 5.23 10*6/uL 4.6-6.2 [facility] Work Phone: Blood hemoglobin measurement (mass/volume)on 12-04-2021 Hemoglobin (Bld) [Mass/Vol] 15.9 g/dL 13.0-16.5 [facility] Work Phone: Blood lymphocytes/100 leukoc yteson 12-04-2021 Lymphocytes/100 WBC (Bld) 14.5 % 19-41 [facility] Work Phone: Blood monocytes/100 leukocyt eson 12-04-2021 Monocytes/100 WBC (Bld) 9.7 % 0-10 [facility] Work Phone: Blood platelet mean volumeon 12-04-2021 Platelet mean volume (Bld) [Entitic vol] 10.0 fL 6.2-12.0 [facility] Work Phone: Determination of erythrocyte mean corpuscular volume (MCV)on 12-04-2021 MCV (RBC) [Entitic vol] 93.1 fL 80-94 [facility] Work Phone: Erythrocyte sedimentation ra bk 12-04-2021 ESR (Bld) [Velocity] 38 mm/h 0-20 [facility] Work Phone: Gram stain for investigation of transfusion reactionon 12-04-2021 Microscopic observation Gram stain Nom (Unsp spec) [facility] Work Phone: Hematocrit Auto (Bld) [Volum e fraction]on 12-04-2021 Hematocrit (Bld) [Volume fraction] 48.7 % 40-54 [facility] Work Phone: Laboratory - Chemistry and C hemistry - challengeon 12-04-2021 ALP [Catalytic activity/Vol] 161 U/L 45-117 [facility] Work Phone: ALT [Catalytic activity/Vol] 49 U/L 16-61 [facility] Work Phone: CO2 [Moles/Vol] 23.0 mmol/L 21.0-32.0 [facility] Work Phone: Globulin (S) [Mass/Vol] 3.6 g/dL 2.2-4.2 [facility] Work Phone: Urea nitrogen/Creatinine [Mass ratio] 29.3 mg/mg 10-20 [facility] Work Phone: Laboratory - Hematology and Cell countson 12-04-2021 Erythrocyte distribution width (RBC) [Entitic vol] 45.3 fL 35.1-43.9 [facility] Work Phone: Erythrocyte distribution width (RBC) [Ratio] 13.2 % 11.6-14.6 [facility] Work Phone: Immature granulocytes/100 WBC (Bld) 0.200 % 0.0-0.9 [facility] Work Phone: Comment on above: IG% - Immature Granu locytes (promyelocytes, myelocytes and metamyelocytes) > 1% indicates that a LEFT SHIFT is Present. MCH (RBC) [Entitic mass] 30.4 pg 27.0-32.0 [facility] Work Phone: Nucleated RBC/100 WBC (Bld) [Ratio] 0 % 0-5 [facility] Work Phone: MCHC Auto (RBC) [Mass/Vol]on 12-04-2021 MCHC (RBC) [Mass/Vol] 32.6 g/dL 32-36 [facility] Work Phone: No Panel Informationon 12-04 Estimated GFR (MDRD) Amer 72 mL/min >60 [facility] Work Phone: Comment on above: GFR Calc Estimated GFR (MDRD) Non-Af Amer 60 mL/min >60 [facility] Work Phone: Comment on above: Non- GFR Calc Methicillin-Resist S.aureus DNA PCR Negative Negative [facility] Work Phone: Platelets bldon 12-04-2021 Platelets (Bld) [#/Vol] 226 10*3/uL 150-450 [facility] Work Phone: Serum or plasma C reactive p rotein measurement (mass/volume)on 12-04-2021 CRP [Mass/Vol] 12.60 mg/L 0.0-3.0 [facility] Work Phone: Comment on above: C-Reactive Protein ( CRP) provides useful information for thediagnosis, therapy and monitoring of inflammatory processesand associated diseases. For the evaluation of Relative Riskfor Cardiovascular Disease, a High Sensitivity CRP (HSCRP)should be ordered. Serum or plasma albumin regi urement (mass/volume)on 12-04-2021 Albumin [Mass/Vol] 3.4 g/dL 3.2-5.0 [facility] Work Phone: Serum or plasma albumin/glob ulin mass ratioon 12-04-2021 Albumin/Globulin [Mass ratio] 0.9 {ratio} 0.9-2.4 [facility] Work Phone: Serum or plasma calcium regi urement (mass/volume)on 12-04-2021 Calcium [Mass/Vol] 9.2 mg/dL 8.5-10.1 [facility] Work Phone: Serum or plasma creatinine m easurement (mass/volume)on 12-04-2021 Creatinine [Mass/Vol] 1.33 mg/dL 0.70-1.30 [facility] Work Phone: Comment on above: The validity of the calculated GFR & GFRAA in patients over 70 years has not been determined. Clinical correlation is essential. Serum or plasma urea nitroge n measurement (mass/volume)on 12-04-2021 Urea nitrogen [Mass/Vol] 39 mg/dL 7-18 [facility] Work Phone: Staphylococcus aureus DNA de tection by probe and target amplification methodon 12-04-2021 S. aureus DNA CARMEN+probe Ql (Unsp spec) Positive Negative [facility] Work Phone: Thin prep Papanicolaou smear with manual screeningon 12-04-2021 Thin prep Papanicolaou smear with manual screening 31 U/L 15-37 [facility] Work Phone: Thin prep Papanicolaou smear with manual screening 6 5-15 [facility] Work Phone: Whole blood hemoglobin A1c/t otal hemoglobin ratio (mass fraction)on 12-04-2021 HbA1c (Bld) [Mass fraction] 8.1 % 3.8-5.6 [facility] Work Phone: Comment on above: Normal < 5.7 % Predi abetic 5.7 - 6.4 % Diabetic >or= 6.5 % Please note range changes. Absolute lymphocyte counton 09-20-2021 Lymphocytes Auto (Unsp spec) [#/Vol] 0.44 10*3/uL 0.83-4.51 [facility] Work Phone: Basophil percentageon 2021 Basophils/100 WBC (Bld) 0.2 % 0-1 [facility] Work Phone: Chloride [Moles/Vol] 113 mmol/L 98-107 [facility] Work Phone: Eosinophils/100 WBC (Bld) 0.0 % 0-5 [facility] Work Phone: Glucose [Mass/Vol] 241 mg/dL 74-106 [facility] Work Phone: Comment on above: Glucose result great er than or equal to 200 mg/dLsuggests DIABETES MELLITUS per A.D.A. criteria.Please note revised GLUCOSE reference range effective 2017. Neutrophils (Bld) [#/Vol] 10.5 10*3/uL 2.0-7.7 [facility] Work Phone: Neutrophils/100 WBC (Bld) 90.2 % 47-70 [facility] Work Phone: Potassium [Moles/Vol] 4.9 mmol/L 3.5-5.1 [facility] Work Phone: Sodium [Moles/Vol] 136 mmol/L 136-145 [facility] Work Phone: WBC (Bld) [#/Vol] 11.6 10*3/uL 4.4-11.0 [facility] Work Phone: Blood erythrocytes count (nu mber/volume)on 09-20-2021 RBC (Bld) [#/Vol] 5.74 10*6/uL 4.6-6.2 [facility] Work Phone: Blood hemoglobin measurement (mass/volume)on 09-20-2021 Hemoglobin (Bld) [Mass/Vol] 16.9 g/dL 13.0-16.5 [facility] Work Phone: Blood lymphocytes/100 leukoc yteson 09-20-2021 Lymphocytes/100 WBC (Bld) 3.8 % 19-41 [facility] Work Phone: Blood monocytes/100 leukocyt eson 09-20-2021 Monocytes/100 WBC (Bld) 5.4 % 0-10 [facility] Work Phone: Blood platelet mean volumeon 09-20-2021 Platelet mean volume (Bld) [Entitic vol] 11.8 fL 6.2-12.0 [facility] Work Phone: Determination of erythrocyte mean corpuscular volume (MCV)on 09-20-2021 MCV (RBC) [Entitic vol] 92.3 fL 80-94 [facility] Work Phone: Glucose Glucometer (BldC) [M ass/Vol]on 09-20-2021 Glucose [Mass/Vol] 294 mg/dL 70-110 [facility] Work Phone: Comment on above: MANAGEMENT OF PATIEN T CARE PER NURSING PROTOCOL Hematocrit Auto (Bld) [Volum e fraction]on 09-20-2021 Hematocrit (Bld) [Volume fraction] 53.0 % 40-54 [facility] Work Phone: Laboratory - Chemistry and C hemistry - challengeon 09-20-2021 CO2 [Moles/Vol] 16.0 mmol/L 21.0-32.0 [facility] Work Phone: Urea nitrogen/Creatinine [Mass ratio] 34.2 mg/mg 10-20 [facility] Work Phone: Laboratory - Hematology and Cell countson 09-20-2021 Erythrocyte distribution width (RBC) [Entitic vol] 39.8 fL 35.1-43.9 [facility] Work Phone: Erythrocyte distribution width (RBC) [Ratio] 11.7 % 11.6-14.6 [facility] Work Phone: Immature granulocytes/100 WBC (Bld) 0.400 % 0.0-0.9 [facility] Work Phone: Comment on above: IG% - Immature Granu locytes (promyelocytes, myelocytes and metamyelocytes) > 1% indicates that a LEFT SHIFT is Present. MCH (RBC) [Entitic mass] 29.4 pg 27.0-32.0 [facility] Work Phone: Nucleated RBC/100 WBC (Bld) [Ratio] 0 % 0-5 [facility] Work Phone: MCHC Auto (RBC) [Mass/Vol]on 09-20-2021 MCHC (RBC) [Mass/Vol] 31.9 g/dL 32-36 [facility] Work Phone: No Panel Informationon 09-20 Estimated Creatinine Clearance Calc 51.93 ml/min [facility] Work Phone: Estimated GFR (MDRD) Amer 58 mL/min >60 [facility] Work Phone: Comment on above: GFR Calc Estimated GFR (MDRD) Non-Af Amer 48 mL/min >60 [facility] Work Phone: Comment on above: Non- GFR Calc Platelets bldon 09-20-2021 Platelets (Bld) [#/Vol] 154 10*3/uL 150-450 [facility] Work Phone: Serum or plasma calcium regi urement (mass/volume)on 09-20-2021 Calcium [Mass/Vol] 7.7 mg/dL 8.5-10.1 [facility] Work Phone: Serum or plasma creatinine m easurement (mass/volume)on 09-20-2021 Creatinine [Mass/Vol] 1.61 mg/dL 0.70-1.30 [facility] Work Phone: Comment on above: The validity of the calculated GFR & GFRAA in patients over 70 years has not been determined. Clinical correlation is essential. Serum or plasma urea nitroge n measurement (mass/volume)on 09-20-2021 Urea nitrogen [Mass/Vol] 55 mg/dL 7-18 [facility] Work Phone: Thin prep Papanicolaou smear with manual screeningon 09-20-2021 Thin prep Papanicolaou smear with manual screening 7 5-15 [facility] Work Phone: Blood mireya cells detection b y light microscopyon 09-19-2021 [place] cells LM Ql (Bld) 1+ Wo freddy [facility] Work Phone: Basophil percentageon 2021 Bilirubin [Mass/Vol] 0.50 mg/dL 0.20-1.[address] [facility] [address] [facility] Work Phone: Comment on above: For patients on eltr ombopag therapy, use of Dimension Pinnacle TBIL is not recommended. Lactate [Moles/Vol] 1.2 mmol/L 0.4-2.0 [facility] Work Phone: Protein [Mass/Vol] 5.8 g/dL 6.4-8.2 [facility] Work Phone: Laboratory - Chemistry and C hemistry - challengeon 09-18-2021 ALP [Catalytic activity/Vol] 138 U/L 45-117 [facility] Work Phone: ALT [Catalytic activity/Vol] 76 U/L 16-61 [facility] Work Phone: Globulin (S) [Mass/Vol] 3.1 g/dL 2.2-4.2 [facility] Work Phone: Serum or plasma albumin regi urement (mass/volume)on 09-18-2021 Albumin [Mass/Vol] 2.7 g/dL 3.2-5.0 [facility] Work Phone: Serum or plasma albumin/glob ulin mass ratioon 09-18-2021 Albumin/Globulin [Mass ratio] 0.9 {ratio} 0.9-2.4 [facility] Work Phone: Thin prep Papanicolaou smear with manual screeningon 09-18-2021 Thin prep Papanicolaou smear with manual screening 54 U/L 15-37 [facility] Work Phone: Blood manual differential co mment interpretation (narrative result)on 09-17-2021 Manual differential comment Vernon (Bld) [Interp] SCANNED [facility] Work Phone: Blood platelet adequacy dete ction by light microscopyon 09-17-2021 Platelets LM Ql (Bld) SLT DEC [facility]Q [facility] Work Phone: Direct bilirubinon 2 Bilirubin.direct [Mass/Vol] 0.25 mg/dL 0.00-0.30 [facility] Work Phone: Laboratory - Microbiology an d Antimicrobial susceptibilityon 09-17-2021 Bacteria identified Cx Nom (Bld) No growth in 5 days. [facility] Work Phone: No Panel Informationon 09-17 D-Dimer Quantitative (PE/DVT) 1.02 FEU/ug/m 0.27-0.49 [facility] Work Phone: Comment on above: D-Dimer ELEVATED (>0 .49): Additional studies and clinicalassessments are indicated to conclude diagnosis of:Deep Vein Thrombosis (DVT) or Pulmonary Embolism (PE)CRITICAL VALUE VERIFIED. CALLED TO POPEYE PEREZ RN09/17/21 2144 Sarah Cuellar.RESULTS READ BACK BY SAME. Troponin I High Sensitivity 21 pg/mL 3.0-78.0 [facility] Work Phone: Comment on above: Please Note: New Isha t Units and Gender Specific Reference Ranges. For more information see Policy Stat Procedure [facility] High Sensitivity Troponin (TNIH) and attachments. RBC morphologyon 09-17-2021 RBC morphology finding Nom (Bld) NORM C+C NORMAL NORM C&C [facility] Work Phone: Absolute lymphocyte counton 09-14-2021 Lymphocytes Auto (Unsp spec) [#/Vol] 0.54 10*3/uL 0.83-4.51 [facility] Work Phone: Basophil percentageon 2021 Basophil percentage 0 SEEN /hpf [facility] Work Phone: Basophils/100 WBC (Bld) 0.2 % 0-1 [facility] Work Phone: Chloride [Moles/Vol] 107 mmol/L 98-107 [facility] Work Phone: Eosinophils/100 WBC (Bld) 0.2 % 0-5 [facility] Work Phone: [phone] Glucose [Mass/Vol] 98 mg/dL 74-106 [facility] Work Phone: Comment on above: Please note revised GLUCOSE reference range effective 2017. Lactate [Moles/Vol] 1.1 mmol/L 0.4-2.0 [facility] Work Phone: [phone] Neutrophils (Bld) [#/Vol] 4.4 10*3/uL 2.0-7.7 [facility] Work Phone: [phone] Neutrophils/100 WBC (Bld) 79.3 % 47-70 [facility] Work Phone: Potassium [Moles/Vol] 4.3 mmol/L 3.5-5.1 [facility] Work Phone: Sodium [Moles/Vol] 139 mmol/L 136-145 [facility] Work Phone: WBC (Bld) [#/Vol] 5.5 10*3/uL 4.4-11.0 [facility] Work Phone: Bilirubin Test strip Ql (U)o n 09-14-2021 Bilirubin Ql (U) Negative Negative [facility] Work Phone: Blood erythrocytes count (nu mber/volume)on 09-14-2021 RBC (Bld) [#/Vol] 5.61 10*6/uL 4.6-6.2 [facility]: Blood hemoglobin measurement (mass/volume)on 09-14-2021 Hemoglobin (Bld) [Mass/Vol] 17.2 g/dL 13.0-16.5 [facility] Work Phone: Blood lymphocytes/100 leukoc yteson 09-14-2021 Lymphocytes/100 WBC (Bld) 9.9 % 19-41 [facility] Work Phone: Blood manual differential co mment interpretation (narrative result)on 09-14-2021 Manual differential comment Vernon (Bld) [Interp] SCANNED [facility] Work Phone: Blood monocytes/100 leukocyt eson 09-14-2021 Monocytes/100 WBC (Bld) 9.9 % 0-10 [facility] Work Phone: Blood platelet mean volumeon 09-14-2021 Platelet mean volume (Bld) [Entitic vol] 11.3 fL 6.2-12.0 [facility] Work Phone: Determination of erythrocyte mean corpuscular volume (MCV)on 09-14-2021 MCV (RBC) [Entitic vol] 94.1 fL 80-94 [facility] Work Phone: Hematocrit Auto (Bld) [Volum e fraction]on 09-14-2021 Hematocrit (Bld) [Volume fraction] 52.8 % 40-54 [facility] Work Phone: Ketones Test strip Ql (U)on 09-14-2021 Ketones Ql (U) Negative Negative [facility] Work Phone: Laboratory - Chemistry and C hemistry - challengeon 09-14-2021 CO2 [Moles/Vol] 24.0 mmol/L 21.0-32.0 [facility] Work Phone: Urea nitrogen/Creatinine [Mass ratio] 11.9 mg/mg 10-20 [facility] Work Phone: Laboratory - Hematology and Cell countson 09-14-2021 Erythrocyte distribution width (RBC) [Entitic vol] 40.8 fL 35.1-43.9 [facility] Work Phone: Erythrocyte distribution width (RBC) [Ratio] 11.8 % 11.6-14.6 [facility] Work Phone: Immature granulocytes/100 WBC (Bld) 0.500 % 0.0-0.9 [facility] Work Phone: Comment on above: IG% - Immature Granu locytes (promyelocytes, myelocytes and metamyelocytes) > 1% indicates that a LEFT SHIFT is Present. MCH (RBC) [Entitic mass] 30.7 pg 27.0-32.0 [facility] Work Phone: Nucleated RBC/100 WBC (Bld) [Ratio] 0 % 0-5 [facility] Work Phone: Laboratory - Microbiology an d Antimicrobial susceptibilityon 09-14-2021 Bacteria identified Cx Nom (Bld) No growth in 5 days. [facility] Work Phone: MCHC Auto (RBC) [Mass/Vol]on 09-14-2021 MCHC (RBC) [Mass/Vol] 32.6 g/dL 32-36 [facility] Work Phone: Mucus LM Ql (Urine sed)on Mucus Ql (Urine sed) 0 SEEN /hpf [facility] Work Phone: Nitrite Test strip Ql (U)on 09-14-2021 Nitrite Ql (U) Negative Negative [facility] Work Phone: No Panel Informationon 09-14 D-Dimer Quantitative (PE/DVT) 0.70 FEU/ug/m 0.27-0.49 [facility] Work Phone: Comment on above: CRITICAL VALUE VERIF IED. CALLED TO BHAVESH MOON09/14/21 0935 Ferdinand Mike.RESULTS READ BACK BY SAME . D-Dimer ELEVATED (>0.49): Additional studies and clinicalassessments are indicated to conclude diagnosis of:Deep Vein Thrombosis (DVT) or Pulmonary Embolism (PE) Estimated Creatinine Clearance Calc 47.50 ml/min [facility] Work Phone: Estimated GFR (MDRD) Amer 52 mL/min >60 [facility] Work Phone: Comment on above: GFR Calc Estimated GFR (MDRD) Non-Af Amer 43 mL/min >60 [facility] Work Phone: Comment on above: Non- GFR Calc Troponin I High Sensitivity 24 pg/mL 3.0-78.0 [facility] Work Phone: Comment on above: Please Note: New Isha t Units and Gender Specific Reference Ranges. For more information see Policy Stat Procedure [facility] High Sensitivity Troponin (TNIH) and attachments. SARS-CoV-2 Antigen (Rapid) SARS-CoV-2 (COVID 19) [facility] Work Phone: Platelets bldon 09-14-2021 Platelets (Bld) [#/Vol] 144 10*3/uL 150-450 [facility] Work Phone: Protein Test strip Ql (U)on 09-14-2021 Protein Ql (U) 15 mg/dl Negative [facility] Work Phone: Serum or plasma calcium regi urement (mass/volume)on 09-14-2021 Calcium [Mass/Vol] 9.1 mg/dL 8.5-10.1 [facility] Work Phone: Serum or plasma creatinine m easurement (mass/volume)on 09-14-2021 Creatinine [Mass/Vol] 1.76 mg/dL 0.70-1.30 [facility] Work Phone: Comment on above: The validity of the calculated GFR & GFRAA in patients over 70 years has not been determined. Clinical correlation is essential. Serum or plasma urea nitroge n measurement (mass/volume)on 09-14-2021 Urea nitrogen [Mass/Vol] 21 mg/dL 7-18 [facility] Work Phone: Squamous epithelial cells de tection in urine sediment by light microscopyon 09-14-2021 Epithelial cells.squamous LM Ql (Urine sed) 0 SEEN /hpf [facility] Work Phone: Thin prep Papanicolaou smear with manual screeningon 09-14-2021 Thin prep Papanicolaou smear with manual screening 8 5-15 [facility] Work Phone: Urine blood detectionon RBC Ql (U) 250 /ul Negative [facility] Work Phone: RBC Ql (U) 5-10 SEEN /hpf [facility] Work Phone: Urine clarityon 09-14-2021 Clarity (U) Clear Clear [facility] Work Phone: Urine color determinationon 09-14-2021 Color (U) Yellow Yellow [facility] Work Phone: Urine glucose detectionon Glucose Ql (U) Normal mg/dl Normal [facility] Work Phone: Urine leukocyte esterase det ection by dipstickon 09-14-2021 Leukocyte esterase Test strip Ql (U) Negative Negative [facility] Work Phone: Urine pHon 09-14-2021 pH (U) 5.0 [pH] [facility] Work Phone: [phone] Urine sediment bacteria coun t by microscopy (number/high power field)on 09-14-2021 Bacteria LM.HPF (Urine sed) [#/Area] 0 /[HPF] None Seen [facility] Work Phone: Urine specific gravity measu rementon 09-14-2021 Specific gravity (U) [Rel density] 1.015 [facility] Work Phone: Urobilinogen Auto test strip Ql (U)on 09-14-2021 Urobilinogen Ql (U) Normal mg/dl Normal [facility] Work Phone: Bacteria identified Anaer cx Nom (Unsp spec) Anaerobic Culture Prevotella bivia [facility] Work Phone: Anaerobic Culture Anaerobic cocci [facility] Work Phone: Anaerobic Culture Negative [facility] Work Phone: Bacteria identified Cx Nom ( Wound) Wound Culture Enterococcus faecalis [facility] Work Phone: Wound Culture Staphylococcus homin is hominis [facility] Work Phone: [phone] Wound Culture Corynebacterium amycolatum [facility] Work Phone: Wound Culture Streptococcus mitis/ oralis [facility] Work Phone: Wound Culture Actinomyces odontolyticus [facility] Work Phone: Wound Culture Staphylococcus aureus [facility] Work Phone: Wound Culture Escherichia coli [facility] Work Phone: Wound Culture Actinomyces species [facility] Work Phone: Wound Culture Strep anginosus [facility] Work Phone: Wound Culture Staphylococcus epidermidis [facility] Work Phone: [phone] Wound Culture Enterococcus casseliflavus (D) [facility] Work Phone: Wound Culture Turicella otitidis [facility] Work Phone: Gram stain for investigation of transfusion reaction Microscopic observation Gram stain Nom (Unsp spec) [facility] Work Phone: Laboratory - Microbiology an d Antimicrobial susceptibility Bacteria identified Cx Nom (Bld) No growth in 5 days. [facility] Work Phone: Vital Signs Date Time Vital Sign Value Performing Clinician Facility 05-14-2025 08:54-0400 Body height 172.7 cm Mariza Vences 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 Work Phone: [facility] 05-14-2025 08:54-0400 Body mass index (BMI) [Ratio] 25.34 kg/m2 Mariza Vences 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 Work Phone: [facility] 05-14-2025 08:54-0400 Body weight 75.6 kg Mariza Vences 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 Work Phone: [facility] 05-14-2025 08:54-0400 Diastolic blood pressure 66 mm[Hg] Mariza Vences 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 Work Phone: [facility] 05-14-2025 08:54-0400 Heart rate 106 /min Mariza Vences 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 Work Phone: [facility] 05-14-2025 08:54-0400 Systolic blood pressure 105 mm[Hg] Mariza Vences 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 Work Phone: [facility] 04-18-2025 02:50-0400 Body temperature 97.8 [degF] Dr. Zaida Gaston MD Work Phone: [facility] 04-18-2025 02:50-0400 Diastolic blood pressure 82 mm[Hg] Dr. Zaida Gaston MD Work Phone: [facility] 04-18-2025 02:50-0400 Heart rate 73 /min Dr. Zaida Gaston MD Work Phone: [facility] 04-18-2025 02:50-0400 Respiratory rate 16 /min Dr. Zaida Gaston MD Work Phone: 4(406)800-149194 [place] [address] 04-18-2025 02:50-0400 SaO2% (BldA) [Mass fraction] 99 % Dr. Zaida Gaston MD Work Phone: 3(841)187-652499 [place] [address] 04-18-2025 02:50-0400 Systolic blood pressure 137 mm[Hg] Dr. Zaida Gaston MD Work Phone: 1(532)898-405399 [place] [address] 04-15-2025 12:51-0400 Body height 172.[address] Zaida Gaston MD Work Phone: 8(875)442-785999 [place] [address] 04-15-2025 12:51-0400 Body mass index (BMI) [Ratio] 25.2 kg/m2 Dr. Zaida Gaston MD Work Phone: 1(799)065-813999 [place] [address] 04-15-2025 12:51-0400 Body weight 75.[address] Zaida Gaston MD Work Phone: 3(377)169-197599 [place] [address] 04-15-2025 12:00-0400 Diastolic blood pressure 96 mm[Hg] Dr. Zaida Gaston MD Work Phone: 4(747)591-179899 [place] [address] 04-15-2025 12:00-0400 Systolic blood pressure 136 mm[Hg] Dr. Zaida Gaston MD Work Phone: 5(366)966-431999 [place] [address] 04-15-2025 11:45-0400 Heart rate 95 /min Dr. Zaida Gaston MD Work Phone: 6(399)762-685199 [place] [address] 04-15-2025 11:45-0400 Respiratory rate 14 /min Dr. Zaida Gaston MD Work Phone: 1(884)494-057499 [place] [address] 04-15-2025 11:14-0400 Body temperature 98.9 [degF] Dr. Zaida Gaston MD Work Phone: 2(090)209-442999 [place] [address] 04-15-2025 11:14-0400 SaO2% (BldA) [Mass fraction] 95 % Dr. Zaida Gaston MD Work Phone: 3(050)180-650999 [place] [address] 04-14-2025 17:24-0400 Body height 172.[address] Zaida Gaston MD Work Phone: 7(819)296-184599 [place] [address] 04-14-2025 17:24-0400 Body mass index (BMI) [Ratio] 25.9 kg/m2 Dr. Zaida Gaston MD Work Phone: 6(940)412-089299 [place] [address] 04-14-2025 17:24-0400 Body weight 77.[address] Zaida Gaston MD Work Phone: 1(668)994-151499 [place] [address] 04-04-2025 16:33-0400 Body temperature 98.9 [degF] Dr. Zaida Gaston MD Work Phone: 5(972)195-190799 [place] [address] 04-04-2025 16:33-0400 Diastolic blood pressure 82 mm[Hg] Dr. Zaida Gaston MD Work Phone: 9(702)386-937799 [place] [address] 04-04-2025 16:33-0400 Heart rate 98 /min Dr. Zaida Gaston MD Work Phone: 7(804)568-197499 [place] [address] 04-04-2025 16:33-0400 Respiratory rate 16 /min Dr. Zaida Gaston MD Work Phone: 0(809)986-797999 [place] [address] 04-04-2025 16:33-0400 SaO2% (BldA) [Mass fraction] 99 % Dr. Zaida Gaston MD Work Phone: 4(707)790-585399 [place] [address] 04-04-2025 16:33-0400 Systolic blood pressure 143 mm[Hg] Dr. Zaida Gaston MD Work Phone: 6(832)249-798899 [place] [address] 04-04-2025 11:05-0400 Body height 172.[address] Zaida Gaston MD Work Phone: 7(261)209-669799 [place] [address] 04-04-2025 11:05-0400 Body mass index (BMI) [Ratio] 25.9 kg/m2 Dr. Zaida Gaston MD Work Phone: 6(225)366-021399 [place] [address] 04-04-2025 11:05-0400 Body weight 77.[address] Zaida Gaston MD Work Phone: 9(968)484-506899 [place] [address] 03-10-2025 20:48-0400 Body temperature 99.4 [degF] Dr. Zaida Gaston MD Work Phone: 9(477)357-916399 [place] [address] 03-10-2025 20:48-0400 Diastolic blood pressure 70 mm[Hg] Dr. Zaida Gaston MD Work Phone: 3(570)676-868099 [place] [address] 03-10-2025 20:48-0400 Heart rate 69 /min Dr. Zaida Gaston MD Work Phone: 3(661)676-841799 [place] [address] 03-10-2025 20:48-0400 Respiratory rate 18 /min Dr. Zaida Gaston MD Work Phone: 1(322)534-602099 [place] [address] 03-10-2025 20:48-0400 SaO2% (BldA) [Mass fraction] 97 % Dr. Zaida Gaston MD Work Phone: 9(365)904-405299 [place] [address] 03-10-2025 20:48-0400 Systolic blood pressure 110 mm[Hg] Dr. Zaida Gaston MD Work Phone: 6(458)999-917299 [place] [address] 03-10-2025 15:13-0400 Body mass index (BMI) [Ratio] 25.8 kg/m2 Dr. Zaida Gaston MD Work Phone: 4(728)357-651199 [place] [address] 03-10-2025 15:13-0400 Body weight 77.[address] Zaida Gaston MD Work Phone: 0(573)748-475899 [place] [address] 03-10-2025 11:27-0400 Body height 172.[address] Zaida Gaston MD Work Phone: 9(469)635-138699 [place] [address] 02-07-2025 16:05-0400 Diastolic blood pressure 89 mm[Hg] Dr. Zaida Gaston MD Work Phone: 0(710)432-343299 [place] [address] 02-07-2025 16:05-0400 Heart rate 89 /min Dr. Zaida Gaston MD Work Phone: 3(622)799-120899 [place] [address] 02-07-2025 16:05-0400 Respiratory rate 16 /min Dr. Zaida Gaston MD Work Phone: 3(367)495-555799 [place] [address] 02-07-2025 16:05-0400 SaO2% (BldA) [Mass fraction] 99 % Dr. Zaida Gaston MD Work Phone: 1(959)521-674299 [place] [address] 02-07-2025 16:05-0400 Systolic blood pressure 147 mm[Hg] Dr. Zaida Gaston MD Work Phone: 3(055)927-584399 [place] [address] 02-07-2025 13:09-0400 Body height 172.[address] Zaida Gaston MD Work Phone: 6(127)688-556999 [place] [address] 02-07-2025 13:09-0400 Body mass index (BMI) [Ratio] 26.4 kg/m2 Dr. Zaida Gaston MD Work Phone: 3(462)275-578799 [place] [address] 02-07-2025 13:09-0400 Body temperature 98.2 [degF] Dr. Zaida Gaston MD Work Phone: 2(061)168-463399 [place] [address] 02-07-2025 13:09-0400 Body weight 78.[address] Zaida Gaston MD Work Phone: 2(315)912-004599 [place] [address] 02-05-2025 11:13-0400 Body mass index (BMI) [Ratio] 27.59 kg/m2 Zaida Gaston MD Work Phone: 6(781)779-475970 [place] [address] 02-05-2025 11:13-0400 Body weight 82.28 kg Zaida Gaston MD Work Phone: 4(609)433-129670 [place] [address] 02-05-2025 11:13-0400 Diastolic blood pressure 68 mm[Hg] Zaida Gaston MD Work Phone: 7(902)667-283870 [place] [address] 02-05-2025 11:13-0400 Heart rate 93 /min Zaida Gaston MD Work Phone: 0(035)702-651949 [place] [address] 02-05-2025 11:13-0400 Respiratory rate 16 /min Zaida Gaston MD Work Phone: 0(607)668-978270 [place] [address] 02-05-2025 11:13-0400 SaO2% (BldA) [Mass fraction] 95 % Zaida Gaston MD Work Phone: 9(520)515-801049 [place] [address] 02-05-2025 11:13-0400 Systolic blood pressure 106 mm[Hg] Zaida Gaston MD Work Phone: 6(225)766-394949 [place] [address] 01-27-2025 02:59-0400 Body temperature 98.6 [degF] Dr. Zaida Gaston MD Work Phone: 4(080)103-187999 [place] [address] 01-27-2025 02:59-0400 Diastolic blood pressure 63 mm[Hg] Dr. Zaida Gaston MD Work Phone: 5(648)686-528399 [place] [address] 01-27-2025 02:59-0400 Heart rate 70 /min Dr. Zaida Gaston MD Work Phone: 3(624)206-446899 [place] [address] 01-27-2025 02:59-0400 Respiratory rate 17 /min Dr. Zaida Gaston MD Work Phone: 3(344)766-052499 [place] [address] 01-27-2025 02:59-0400 SaO2% (BldA) [Mass fraction] 97 % Dr. Zaida Gaston MD Work Phone: 4(967)893-968899 [place] [address] 01-27-2025 02:59-0400 Systolic blood pressure 89 mm[Hg] Dr. Zaida Gaston MD Work Phone: 1(629)047-199699 [place] [address] 01-26-2025 15:50-0400 Body mass index (BMI) [Ratio] 29 kg/m2 Dr. Zaida Gaston MD Work Phone: 9(523)500-367199 [place] [address] 01-26-2025 15:50-0400 Body weight 86.[address] Zaida Gaston MD Work Phone: 4(735)090-252799 [place] [address] 01-26-2025 15:47-0400 Body height 172.[address] Zaida Gaston MD Work Phone: 9(517)016-562899 [place] [address] 11-19-2024 17:47-0400 Body temperature 97.8 [degF] Dr. Zaida Gaston MD Work Phone: 7(759)385-214799 [place] [address] 11-19-2024 17:47-0400 Diastolic blood pressure 72 mm[Hg] Dr. Zaida Gaston MD Work Phone: 3(012)545-916699 [place] [address] 11-19-2024 17:47-0400 Heart rate 89 /min Dr. Zaida Gaston MD Work Phone: 8(665)232-084699 [place] [address] 11-19-2024 17:47-0400 Respiratory rate 18 /min Dr. Zaida Gaston MD Work Phone: 5(280)994-182899 [place] [address] 11-19-2024 17:47-0400 SaO2% (BldA) [Mass fraction] 95 % Dr. Zaida Gaston MD Work Phone: 2(629)563-746499 [place] [address] 11-19-2024 17:47-0400 Systolic blood pressure 105 mm[Hg] Dr. Zaida Gaston MD Work Phone: 2(464)895-044999 [place] [address] 11-19-2024 14:20-0400 Body height 172.[address] Zaida Gaston MD Work Phone: 0(168)592-565599 [place] [address] 11-19-2024 14:20-0400 Body mass index (BMI) [Ratio] 28.5 kg/m2 Dr. Zaida Gaston MD Work Phone: 3(856)643-701799 [place] [address] 11-19-2024 14:20-0400 Body weight 85.[address] Zaida Gaston MD Work Phone: 3(812)315-246599 [place] [address] 09-28-2024 14:59-0500 Body mass index (BMI) [Ratio] 29.04 kg/m2 Zaida Gaston MD Work Phone: 2(470)822-552970 [place] [address] 09-28-2024 14:59-0500 Body weight 86.64 kg Zaida Gaston MD Work Phone: 2(945)208-823570 [place] [address] 09-28-2024 14:59-0500 Diastolic blood pressure 72 mm[Hg] Zaida Gaston MD Work Phone: 1(684)812-712849 [place] [address] 09-28-2024 14:59-0500 Heart rate 95 /min Zaida Gaston MD Work Phone: 3(346)237-134749 [place] [address] 09-28-2024 14:59-0500 Respiratory rate 16 /min Zaida Gaston MD Work Phone: 9(112)468-334849 [place] [address] 09-28-2024 14:59-0500 Systolic blood pressure 120 mm[Hg] Zaida Gaston MD Work Phone: 7(017)816-544149 [place] [address] 07-28-2024 10:37-0500 Body mass index (BMI) [Ratio] 29.5 kg/m2 Dr. Zaida Gaston MD Work Phone: 8(767)958-916894 [place] [address] 07-28-2024 10:37-0500 Body weight 88.[address] Zaida Gaston MD Work Phone: 3(264)296-863694 [place] [address] 07-28-2024 10:37-0500 Diastolic blood pressure 68 mm[Hg] Dr. Zaida Gaston MD Work Phone: 6(335)337-935599 [place] [address] 07-28-2024 10:37-0500 Heart rate 84 /min Dr. Zaida Gaston MD Work Phone: 0(565)860-924399 [place] [address] 07-28-2024 10:37-0500 SaO2% (BldA) [Mass fraction] 95 % Dr. Zaida Gaston MD Work Phone: 2(041)198-082599 [place] [address] 07-28-2024 10:37-0500 Systolic blood pressure 109 mm[Hg] Dr. Zaida Gaston MD Work Phone: 2(673)296-354099 [place] [address] 06-18-2024 12:32-0400 Diastolic blood pressure 96 mm[Hg] Zaida Gaston MD Work Phone: 4(851)409-518749 [place] [address] 06-18-2024 12:32-0400 Systolic blood pressure 151 mm[Hg] Zaida Gaston MD Work Phone: 2(838)916-518049 [place] [address] 06-18-2024 11:29-0400 Body mass index (BMI) [Ratio] 30.77 kg/m2 Zaida Gaston MD Work Phone: 9(699)024-689949 [place] [address] 06-18-2024 11:29-0400 Body weight 91.81 kg Zaida Gaston MD Work Phone: 2(419)131-144649 [place] [address] 06-18-2024 11:29-0400 Heart rate 100 /min Zaida Gaston MD Work Phone: [facility] 06-18-2024 11:29-0400 SaO2% (BldA) [Mass fraction] 99 % Zaida Gaston MD Work Phone: [facility] 04-01-2024 13:35-0400 Diastolic blood pressure 83 mm[Hg] Lali Raman MD Work Phone: [facility] 04-01-2024 13:35-0400 Heart rate 95 /min Lali Raman MD Work Phone: [facility] 04-01-2024 13:35-0400 Respiratory rate 18 /min Lali Raman MD Work Phone: [facility] 04-01-2024 13:35-0400 SaO2% (BldA) [Mass fraction] 99 % Lali Raman MD Work Phone: [facility] 04-01-2024 13:35-0400 Systolic blood pressure 152 mm[Hg] Lali Raman MD Work Phone: [facility] 04-01-2024 12:55-0400 Body temperature 98.8 [degF] Lali Raman MD Work Phone: [facility] 04-01-2024 11:46-0400 Body height 172.7 cm Lali Raman MD Work Phone: [facility] 04-01-2024 11:46-0400 Body mass index (BMI) [Ratio] 29.95 kg/m2 Lali Raman MD Work Phone: [facility] 04-01-2024 11:46-0400 Body weight 89.36 kg Lali Raman MD Work Phone: [facility] 03-24-2024 16:04-0400 Body height 172.7 cm Nia Jacob 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 Work Phone: [facility] 03-24-2024 16:04-0400 Body mass index (BMI) [Ratio] 29.95 kg/m2 Nia Jacob 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 Work Phone: [facility] 03-24-2024 16:04-0400 Body temperature 97.9 [degF] Nia Jacob 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 Work Phone: [facility] 03-24-2024 16:04-0400 Body weight 89.36 kg Nia Jacob 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 Work Phone: [facility] 03-24-2024 16:04-0400 Diastolic blood pressure 60 mm[Hg] Nia Jacob 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 Work Phone: [facility] 03-24-2024 16:04-0400 Heart rate 105 /min Nia Jacob 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 Work Phone: [facility] 03-24-2024 16:04-0400 SaO2% (BldA) [Mass fraction] 95 % Nia Jacob 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 Work Phone: [facility] 03-24-2024 16:04-0400 Systolic blood pressure 118 mm[Hg] Nia Jacob 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 Work Phone: [facility] 03-18-2024 17:31-0400 Body mass index (BMI) [Ratio] 30.26 kg/m2 Delia Older 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 Work Phone: [facility] 03-18-2024 17:31-0400 Body weight 90.27 kg Delia Older 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 Work Phone: [facility] 03-18-2024 17:31-0400 Diastolic blood pressure 72 mm[Hg] Delia Older 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 Work Phone: [facility] 03-18-2024 17:31-0400 Heart rate 102 /min Delia Older 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 Work Phone: [facility] 03-18-2024 17:31-0400 Respiratory rate 16 /min Delia Older 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 Work Phone: [facility] 03-18-2024 17:31-0400 SaO2% (BldA) [Mass fraction] 95 % Delia Older 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 Work Phone: [facility] 03-18-2024 17:31-0400 Systolic blood pressure 118 mm[Hg] Delia Older 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 Work Phone: [facility] 01-22-2024 16:40-0400 Body mass index (BMI) [Ratio] 30.72 kg/m2 Delia Older 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 Work Phone: [facility] 01-22-2024 16:40-0400 Body weight 91.63 kg Delia Older 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 Work Phone: [facility] 01-22-2024 16:40-0400 Diastolic blood pressure 78 mm[Hg] Delia Older 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 Work Phone: [facility] 01-22-2024 16:40-0400 Heart rate 97 /min Delia Older 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 Work Phone: [facility] 01-22-2024 16:40-0400 Respiratory rate 16 /min Delia Older 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 Work Phone: [facility] 01-22-2024 16:40-0400 SaO2% (BldA) [Mass fraction] 97 % Delia Older 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 Work Phone: [facility] 01-22-2024 16:40-0400 Systolic blood pressure 116 mm[Hg] Delia Older 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 Work Phone: [facility] 01-13-2024 13:33-0400 Body height 172.7 cm [employer] Work Phone: [facility] 01-13-2024 13:33-0400 Body mass index (BMI) [Ratio] 30.61 kg/m2 [employer] Work Phone: [facility] 01-13-2024 13:33-0400 Body temperature 97.7 [degF] [employer] Work Phone: [facility] 01-13-2024 13:33-0400 Body weight 91.3 kg [employer] Work Phone: [facility] 01-13-2024 13:33-0400 Diastolic blood pressure 73 mm[Hg] [employer] Work Phone: [facility] 01-13-2024 13:33-0400 Heart rate 104 /min [employer] Work Phone: [facility] 01-13-2024 13:33-0400 SaO2% (BldA) [Mass fraction] 98 % [employer] Work Phone: [facility] 01-13-2024 13:33-0400 Systolic blood pressure 127 mm[Hg] [employer] Work Phone: [facility] 01-02-2024 10:57-0400 Body height 172.[address] Zaida Gaston Work Phone: [facility] 01-02-2024 10:57-0400 Body mass index (BMI) [Ratio] 31.6 kg/m2 Dr. Zaida Gaston Work Phone: [facility] 01-02-2024 10:57-0400 Body temperature 98 [degF] Dr. Zaida Gaston Work Phone: [facility] 01-02-2024 10:57-0400 Body weight 94.[address] Zaida Gaston Work Phone: [facility] 01-02-2024 10:57-0400 Diastolic blood pressure 84 mm[Hg] Dr. Zaida Gaston Work Phone: [facility] 01-02-2024 10:57-0400 Heart rate 100 /min Dr. Zaida Gaston Work Phone: [facility] 01-02-2024 10:57-0400 Respiratory rate 18 /min Dr. Zaida Gaston Work Phone: [facility] 01-02-2024 10:57-0400 SaO2% (BldA) [Mass fraction] 93 % Dr. Zaida Gaston Work Phone: [facility] 01-02-2024 10:57-0400 Systolic blood pressure 135 mm[Hg] Dr. Zaida Gaston Work Phone: [facility] 11-26-2023 07:57-0400 Body height 172.7 cm Xiang Perez PA-C Work Phone: [facility] 11-26-2023 07:57-0400 Body weight 95.71 kg Xiang Denbow PA-C Work Phone: [facility] 11-26-2023 07:57-0400 Diastolic blood pressure 80 mm[Hg] Xiang Denbow PA-C Work Phone: [facility] 11-26-2023 07:57-0400 Heart rate 104 /min Xiang Denbow PA-C Work Phone: [facility] 11-26-2023 07:57-0400 Respiratory rate 12 /min Xiang Denbow PA-C Work Phone: [facility] 11-26-2023 07:57-0400 SaO2% (BldA) [Mass fraction] 98 % Xiang Denbow PA-C Work Phone: [facility] 11-26-2023 07:57-0400 Systolic blood pressure 140 mm[Hg] Xiang Denbow PA-C Work Phone: [facility] 11-11-2023 13:29-0500 Body mass index (BMI) [Ratio] 31.6 kg/m2 Dr. Zaida Gaston Work Phone: [facility] 11-11-2023 13:29-0500 Body weight 94.[address] Zaida Gaston Work Phone: [facility] 11-11-2023 13:29-0500 Diastolic blood pressure 64 mm[Hg] Dr. Zaida Gaston Work Phone: [facility] 11-11-2023 13:29-0500 Heart rate 94 /min Dr. Zaida Gaston Work Phone: [facility] 11-11-2023 13:29-0500 Respiratory rate 18 /min Dr. Zaida Gaston Work Phone: [facility] 11-11-2023 13:29-0500 SaO2% (BldA) [Mass fraction] 96 % Dr. Zaida Gaston Work Phone: 1(752)808-910494 [place] [address] 11-11-2023 13:29-0500 Systolic blood pressure 103 mm[Hg] Dr. Zaida Gaston Work Phone: 3(810)806-062394 [place] [address] 10-24-2023 10:41-0500 Body mass index (BMI) [Ratio] 32.6 kg/m2 Dr. Zaida Gaston Work Phone: 5(417)447-553694 [place] [address] 10-24-2023 10:41-0500 Body temperature 98.9 [degF] Dr. Zaida Gaston Work Phone: 9(909)429-090699 [place] [address] 10-24-2023 10:41-0500 Body weight 97.[address] Zaida Gaston Work Phone: 6(152)211-871599 [place] [address] 10-24-2023 10:41-0500 Diastolic blood pressure 86 mm[Hg] Dr. Zaida Gaston Work Phone: 3(434)923-039699 [place] [address] 10-24-2023 10:41-0500 Heart rate 86 /min Dr. Zaida Gaston Work Phone: 6(139)787-316099 [place] [address] 10-24-2023 10:41-0500 Respiratory rate 18 /min Dr. Zaida Gaston Work Phone: 0(970)409-468399 [place] [address] 10-24-2023 10:41-0500 SaO2% (BldA) [Mass fraction] 98 % Dr. Zaida Gaston Work Phone: 1(398)328-218494 [place] [address] 10-24-2023 10:41-0500 Systolic blood pressure 126 mm[Hg] Dr. Zaida Gaston Work Phone: [facility] 09-18-2023 14:37-0500 Body weight 90.72 kg Delia Older 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 Work Phone: [facility] 09-18-2023 14:37-0500 Diastolic blood pressure 76 mm[Hg] Delia Older 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 Work Phone: [facility] 09-18-2023 14:37-0500 Heart rate 96 /min Delia Older 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 Work Phone: [facility] 09-18-2023 14:37-0500 Respiratory rate 16 /min Delia Older 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 Work Phone: [facility] 09-18-2023 14:37-0500 SaO2% (BldA) [Mass fraction] 98 % Delia Older 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 Work Phone: [facility] 09-18-2023 14:37-0500 Systolic blood pressure 128 mm[Hg] Delia Older 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 Work Phone: [facility] 08-20-2023 14:43-0500 Body weight 90.27 kg Oscar Mas PA-C Work Phone: [facility] 08-13-2023 16:08-0500 Body height 172.7 cm Oscar Mas PA-C Work Phone: [facility] 08-13-2023 16:08-0500 Body temperature 98.29 [degF] Oscar Mas PA-C Work Phone: [facility] 08-13-2023 16:08-0500 Body weight 90.63 kg Oscar Mas PA-C Work Phone: [facility] 08-13-2023 16:08-0500 Diastolic blood pressure 60 mm[Hg] Oscar Mas PA-C Work Phone: [facility] 08-13-2023 16:08-0500 Heart rate 98 /min Oscar Mas PA-C Work Phone: [facility] 08-13-2023 16:08-0500 Respiratory rate 14 /min Oscar Mas PA-C Work Phone: [facility] 08-13-2023 16:08-0500 SaO2% (BldA) [Mass fraction] 97 % Oscar Mas PA-C Work Phone: [facility] 08-13-2023 16:08-0500 Systolic blood pressure 108 mm[Hg] Oscar Mas PA-C Work Phone: [facility] 07-15-2023 14:14-0500 Body height 172.7 cm [employer] Work Phone: [facility] 07-15-2023 14:14-0500 Body temperature 97 [degF] [employer] Work Phone: [facility] 07-15-2023 14:14-0500 Body weight 92.85 kg [employer] Work Phone: [facility] 07-15-2023 14:14-0500 Diastolic blood pressure 78 mm[Hg] [employer] Work Phone: [facility] 07-15-2023 14:14-0500 Heart rate 82 /min [employer] Work Phone: [facility] 07-15-2023 14:14-0500 SaO2% (BldA) [Mass fraction] 100 % [employer] Work Phone: [facility] 07-15-2023 14:14-0500 Systolic blood pressure 116 mm[Hg] [employer] Work Phone: [facility] 05-21-2023 15:10-0400 Body weight 92.99 kg Xiang Denbow PA-C Work Phone: [facility] 05-21-2023 15:10-0400 Diastolic blood pressure 83 mm[Hg] Xiang Denbow PA-C Work Phone: [facility] 05-21-2023 15:10-0400 Heart rate 96 /min Xiang Denbow PA-C Work Phone: [facility] 05-21-2023 15:10-0400 Respiratory rate 16 /min Xiang Denbow PA-C Work Phone: [facility] 05-21-2023 15:10-0400 Systolic blood pressure 132 mm[Hg] Xiang Denbow PA-C Work Phone: [facility] 03-14-2023 07:00-0400 Respiratory rate 16 /min Dr. Zaida Gaston Work Phone: [facility] 03-14-2023 03:49-0400 Diastolic blood pressure 74 mm[Hg] Dr. Zaida Gaston Work Phone: [facility] 03-14-2023 03:49-0400 Heart rate 69 /min Dr. Zaida Gaston Work Phone: 7(567)539-241494 [place] [address] 03-14-2023 03:49-0400 Inhaled oxygen flow rate 97 L/min Dr. Zaida Gastno Work Phone: 8(152)732-371099 [place] [address] 03-14-2023 03:49-0400 Systolic blood pressure 130 mm[Hg] Dr. Zaida Gaston Work Phone: 9(719)823-151399 [place] [address] 03-14-2023 01:00-0400 SaO2% (BldA) [Mass fraction] 97 % Dr. Zaida Gaston Work Phone: 9(032)571-441199 [place] [address] 03-13-2023 22:22-0400 Body height 172.[address] Zaida Gaston Work Phone: 1(606)909-659499 [place] [address] 03-13-2023 22:22-0400 Body mass index (BMI) [Ratio] 33.2 kg/m2 Dr. Zaida Gaston Work Phone: 2(281)294-102199 [place] [address] 03-13-2023 22:22-0400 Body temperature 95.6 [degF] Dr. Zaida Gaston Work Phone: 5(429)990-525999 [place] [address] 03-13-2023 22:22-0400 Body weight [address] Zaida Gaston Work Phone: 5(529)691-895199 [place] [address] 02-25-2023 11:55-0400 Body height 172.7 cm Zaida Gaston MD Work Phone: 1(085)794-799149 [place] [address] 02-25-2023 11:55-0400 Body temperature 98.49 [degF] Zaida Gaston MD Work Phone: [facility] 02-25-2023 11:55-0400 Body weight 100.7 kg Zaida Gaston MD Work Phone: [facility] 02-25-2023 11:55-0400 Diastolic blood pressure 62 mm[Hg] Zaida Gaston MD Work Phone: 3(333)859-235549 [place] [address] 02-25-2023 11:55-0400 Heart rate 85 /min Zaida Gaston MD Work Phone: [facility] 02-25-2023 11:55-0400 Respiratory rate 12 /min Zaida Gaston MD Work Phone: [facility] 02-25-2023 11:55-0400 SaO2% (BldA) [Mass fraction] 96 % Zaida Gaston MD Work Phone: [facility] 02-25-2023 11:55-0400 Systolic blood pressure 130 mm[Hg] Zaida Gaston MD Work Phone: [facility] 02-21-2023 14:02-0400 Body mass index (BMI) [Ratio] 34.3 kg/m2 Dr. Zaida Gaston Work Phone: 9(255)094-240894 [place] [address] 02-21-2023 14:02-0400 Body weight 102.[address] Zaida Gaston Work Phone: 9(755)505-108394 [place] [address] 02-21-2023 14:02-0400 Diastolic blood pressure 62 mm[Hg] Dr. Zaida Gaston Work Phone: 9(932)546-078799 [place] [address] 02-21-2023 14:02-0400 Heart rate 80 /min Dr. Zaida Gaston Work Phone: 5(716)682-046394 [place] [address] 02-21-2023 14:02-0400 Respiratory rate 18 /min Dr. Zaida Gaston Work Phone: 3(483)087-828494 [place] [address] 02-21-2023 14:02-0400 SaO2% (BldA) [Mass fraction] 98 % Dr. Zaida Gaston Work Phone: 9(487)738-446294 [place] [address] 02-21-2023 14:02-0400 Systolic blood pressure 107 mm[Hg] Dr. Zaida Gaston Work Phone: 7(158)360-917199 [place] [address] 01-14-2023 09:37-0400 Body height 172.[address] Zaida Gaston Work Phone: 9(448)230-498394 [place] [address] 01-14-2023 09:37-0400 Body mass index (BMI) [Ratio] 35.3 kg/m2 Dr. Zaida Gaston Work Phone: [facility] 01-14-2023 09:37-0400 Body temperature 97.5 [degF] Dr. Zaida Gaston Work Phone: [facility] 01-14-2023 09:37-0400 Body weight 105.[address] Zaida Gaston Work Phone: [facility] 01-14-2023 09:37-0400 Diastolic blood pressure 72 mm[Hg] Dr. Zaida Gaston Work Phone: [facility] 01-14-2023 09:37-0400 Heart rate 91 /min Dr. Zaida Gaston Work Phone: [facility] 01-14-2023 09:37-0400 Respiratory rate 16 /min Dr. Zaida Gaston Work Phone: [facility] 01-14-2023 09:37-0400 SaO2% (BldA) [Mass fraction] 95 % Dr. Zaida Gaston Work Phone: [facility] 01-14-2023 09:37-0400 Systolic blood pressure 109 mm[Hg] Dr. Zaida Gaston Work Phone: [facility] 12-31-2022 15:29-0400 Body height 172.7 cm [facility] Work Phone: [facility] 12-31-2022 15:29-0400 Body temperature 98.71 [degF] [facility] Work Phone: [facility] 12-31-2022 15:29-0400 Body weight 102.51 kg [facility] Work Phone: [facility] 12-31-2022 15:29-0400 Diastolic blood pressure 65 mm[Hg] [facility] Work Phone: [facility] 12-31-2022 15:29-0400 Heart rate 96 /min [facility] Work Phone: [facility] 12-31-2022 15:29-0400 SaO2% (BldA) [Mass fraction] 96 % [facility] Work Phone: [facility] 12-31-2022 15:29-0400 Systolic blood pressure 145 mm[Hg] [facility] Work Phone: [facility] 11-23-2022 14:29-0400 Body temperature 97.39 [degF] Zaida Gaston MD Work Phone: [facility] 11-23-2022 14:29-0400 Body weight 107.05 kg Zaida Gaston MD Work Phone: [facility] 11-23-2022 14:29-0400 Diastolic blood pressure 72 mm[Hg] Zaida Gaston MD Work Phone: [facility] 11-23-2022 14:29-0400 Heart rate 86 /min Zaida Gaston MD Work Phone: [facility] 11-23-2022 14:29-0400 Respiratory rate 16 /min Zaida Gaston MD Work Phone: [facility] 11-23-2022 14:29-0400 SaO2% (BldA) [Mass fraction] 95 % Zaida Gaston MD Work Phone: [facility] 11-23-2022 14:29-0400 Systolic blood pressure 118 mm[Hg] Zaida Gaston MD Work Phone: [facility] 11-05-2022 20:03-0500 Body temperature 98.4 [degF] Dr. Zaida Gaston Work Phone: [facility] 11-05-2022 20:03-0500 Diastolic blood pressure 75 mm[Hg] Dr. Zaida Gaston Work Phone: [facility] 11-05-2022 20:03-0500 Heart rate 86 /min Dr. Zaida Gaston Work Phone: [facility] 11-05-2022 20:03-0500 Respiratory rate 16 /min Dr. Zaida Gaston Work Phone: 8(613)539-295199 [place] [address] 11-05-2022 20:03-0500 SaO2% (BldA) [Mass fraction] 98 % Dr. Zaida Gaston Work Phone: 1(475)696-766799 [place] [address] 11-05-2022 20:03-0500 Systolic blood pressure 147 mm[Hg] Dr. Zaida Gaston Work Phone: 5(452)768-757799 [place] [address] 11-02-2022 12:26-0500 Body height 172.[address] Zaida Gaston Work Phone: 2(210)212-013099 [place] [address] 11-02-2022 12:26-0500 Body weight 108.[address] Zaida Gaston Work Phone: 0(428)042-749099 [place] [address] 11-01-2022 17:43-0500 Inhaled oxygen flow rate 2 L/min Dr. Zaida Gaston Work Phone: 2(478)568-303499 [place] [address] 11-01-2022 11:06-0500 Body temperature 97.6 [degF] Dr. Zaida Gaston Work Phone: 6(120)823-042999 [place] [address] 11-01-2022 11:06-0500 Diastolic blood pressure 96 mm[Hg] Dr. Zaida Gaston Work Phone: 5(693)011-513799 [place] [address] 11-01-2022 11:06-0500 Heart rate 89 /min Dr. Zaida Gaston Work Phone: 8(779)195-483399 [place] [address] 11-01-2022 11:06-0500 Respiratory rate 16 /min Dr. Zaida Gaston Work Phone: 3(483)331-594799 [place] [address] 11-01-2022 11:06-0500 SaO2% (BldA) [Mass fraction] 96 % Dr. Zaida Gaston Work Phone: 6(096)973-368599 [place] [address] 11-01-2022 11:06-0500 Systolic blood pressure 160 mm[Hg] Dr. Zaida Gaston Work Phone: 3(442)731-260799 [place] [address] 11-01-2022 10:26-0500 Body height 172.[address] Zaida Gaston Work Phone: 1(664)839-306299 [place] [address] 11-01-2022 10:26-0500 Body mass index (BMI) [Ratio] 80.3 kg/m2 Dr. Zaida Gaston Work Phone: 4(815)017-272299 [place] [address] 11-01-2022 10:26-0500 Body weight 239.[address] Zaida Gaston Work Phone: 1(199)751-284399 [place] [address] 11-01-2022 07:52-0500 Body mass index (BMI) [Ratio] 34.2 kg/m2 Dr. Zaida Gaston Work Phone: 2(034)498-948199 [place] [address] 11-01-2022 07:52-0500 Body temperature 97.2 [degF] Dr. Zaida Gaston Work Phone: 9(876)630-649999 [place] [address] 11-01-2022 07:52-0500 Diastolic blood pressure 74 mm[Hg] Dr. Zaida Gaston Work Phone: 3(256)389-101299 [place] [address] 11-01-2022 07:52-0500 Heart rate 89 /min Dr. Zaida Gaston Work Phone: 2(670)736-279099 [place] [address] 11-01-2022 07:52-0500 Systolic blood pressure 135 mm[Hg] Dr. Zaida Gaston Work Phone: 2(615)822-523299 [place] [address] 10-18-2022 09:14-0500 Body mass index (BMI) [Ratio] 34.7 kg/m2 Dr. Zaida Gaston Work Phone: 9(240)648-569999 [place] [address] 10-18-2022 09:14-0500 Body temperature 96.3 [degF] Dr. Zaida Gaston Work Phone: 8(029)646-890199 [place] [address] 10-18-2022 09:14-0500 Body weight 106.[address] Zaida Gaston Work Phone: 1(283)464-820899 [place] [address] 10-18-2022 09:14-0500 Diastolic blood pressure 79 mm[Hg] Dr. Zaida Gaston Work Phone: 8(680)975-910099 [place] [address] 10-18-2022 09:14-0500 Heart rate 89 /min Dr. Zaida Gaston Work Phone: [facility] 10-18-2022 09:14-0500 Respiratory rate 20 /min Dr. Zaida Gaston Work Phone: [facility] 10-18-2022 09:14-0500 SaO2% (BldA) [Mass fraction] 91 % Dr. Zaida Gaston Work Phone: [facility] 10-18-2022 09:14-0500 Systolic blood pressure 129 mm[Hg] Dr. Zaida Gaston Work Phone: [facility] 10-18-2022 07:59-0500 Respiratory rate 16 /min Dr. Zaida Gaston Work Phone: [facility] 10-10-2022 00:28-0500 Body weight 102.[address] Zaida Gaston Work Phone: [facility] 10-04-2022 13:30-0500 Diastolic blood pressure 64 mm[Hg] [facility] Work Phone: [facility] 10-04-2022 13:30-0500 Heart rate 93 /min [facility] Work Phone: [facility] 10-04-2022 13:30-0500 Systolic blood pressure 103 mm[Hg] [facility] 09-27-2022 08:03-0500 Body mass index (BMI) [Ratio] 34.2 kg/m2 Dr. Zaida Gaston Work Phone: [facility] 09-27-2022 08:03-0500 Body temperature 96.9 [degF] Dr. Zaida Gaston Work Phone: [facility] 09-27-2022 08:03-0500 Diastolic blood pressure 77 mm[Hg] Dr. Zaida Gaston Work Phone: [facility] 09-27-2022 08:03-0500 Heart rate 92 /min Dr. Zaida Gaston Work Phone: [facility] 09-27-2022 08:03-0500 Respiratory rate 16 /min Dr. Zaida Gaston Work Phone: [facility] 09-27-2022 08:03-0500 Systolic blood pressure 117 mm[Hg] Dr. Zaida Gaston Work Phone: [facility] 09-24-2022 10:41-0500 Body height 172.7 cm [facility] Work Phone: [facility] 09-24-2022 10:41-0500 Body temperature 98.6 [degF] [facility] Work Phone: [facility] 09-24-2022 10:41-0500 Body weight 104.06 kg [facility] Work Phone: [facility] 09-24-2022 10:41-0500 Diastolic blood pressure 70 mm[Hg] [facility] Work Phone: [facility] 09-24-2022 10:41-0500 Heart rate 93 /min [facility] Work Phone: [facility] 09-24-2022 10:41-0500 SaO2% (BldA) [Mass fraction] 95 % [facility] Work Phone: [facility] 09-24-2022 10:41-0500 Systolic blood pressure 148 mm[Hg] [facility] Work Phone: [facility] 09-09-2022 00:22-0500 Body weight 102.[address] Zaida Gaston Work Phone: [facility] 09-06-2022 12:24-0500 Body mass index (BMI) [Ratio] 34.2 kg/m2 Dr. Zaida Gaston Work Phone: [facility] 09-06-2022 12:24-0500 Body temperature 95.8 [degF] Dr. Zaida Gaston Work Phone: [facility] 09-06-2022 12:24-0500 Diastolic blood pressure 72 mm[Hg] Dr. Zaida Gaston Work Phone: [facility] 09-06-2022 12:24-0500 Heart rate 69 /min Dr. Zaida Gaston Work Phone: 5(273)898-533099 [place] [address] 09-06-2022 12:24-0500 Systolic blood pressure 126 mm[Hg] Dr. Zaida Gaston Work Phone: 3(135)299-987399 [place] [address] 09-06-2022 10:25-0500 Body height 172.[address] Zaida Gaston Work Phone: 8(007)499-136799 [place] [address] 09-06-2022 10:25-0500 Body mass index (BMI) [Ratio] 34.2 kg/m2 Dr. Zaida Gaston Work Phone: 6(204)760-666599 [place] [address] 09-06-2022 10:25-0500 Body temperature 96.9 [degF] Dr. Zaida Gaston Work Phone: 2(299)028-440399 [place] [address] 09-06-2022 10:25-0500 Body weight 102.[address] Zaida Gaston Work Phone: 8(400)920-876099 [place] [address] 09-06-2022 10:25-0500 Diastolic blood pressure 87 mm[Hg] Dr. Zaida Gaston Work Phone: 2(971)455-783299 [place] [address] 09-06-2022 10:25-0500 Heart rate 83 /min Dr. Zaida Gaston Work Phone: 1(198)811-839099 [place] [address] 09-06-2022 10:25-0500 Respiratory rate 18 /min Dr. Zaida Gaston Work Phone: 4(203)657-654899 [place] [address] 09-06-2022 10:25-0500 SaO2% (BldA) [Mass fraction] 95 % Dr. Zaida Gaston Work Phone: 7(766)050-952899 [place] [address] 09-06-2022 10:25-0500 Systolic blood pressure 149 mm[Hg] Dr. Zaida Gaston Work Phone: 0(898)618-883999 [place] [address] 09-05-2022 11:05-0500 Respiratory rate 17 /min Dr. Zaida Gaston Work Phone: 7(441)819-780299 [place] [address] 08-28-2022 11:20-0500 Diastolic blood pressure 66 mm[Hg] Dr. Zaida Gaston Work Phone: 7(168)611-418994 [place] [address] 08-28-2022 11:20-0500 Heart rate 76 /min Dr. Zaida Gaston Work Phone: 3(174)820-000299 [place] [address] 08-28-2022 11:20-0500 Respiratory rate 12 /min Dr. Zaida Gaston Work Phone: 5(226)952-172099 [place] [address] 08-28-2022 11:20-0500 SaO2% (BldA) [Mass fraction] 94 % Dr. Zaida Gaston Work Phone: 7(401)125-093999 [place] [address] 08-28-2022 11:20-0500 Systolic blood pressure 115 mm[Hg] Dr. Zaida Gaston Work Phone: 3(958)073-078999 [place] [address] 08-28-2022 10:03-0500 Body height 172.[address] Zaida Gaston Work Phone: 3(958)527-103094 [place] [address] Work Phone: 08-28-2022 10:03-0500 Body mass index (BMI) [Ratio] 34.1 kg/m2 Dr. Zaida Gaston Work Phone: 0(837)155-471499 [place] [address] 08-28-2022 10:03-0500 Body temperature 96.7 [degF] Dr. Zaida Gaston Work Phone: 7(940)435-243599 [place] [address] 08-28-2022 10:03-0500 Body weight 101.[address] Zaida Gaston Work Phone: 2(858)348-101299 [place] [address] 08-28-2022 09:10-0500 Body temperature 97.4 [degF] Dr. Zaida Gaston Work Phone: 1(202)671-610394 [place] [address] Work Phone: 08-28-2022 09:10-0500 Diastolic blood pressure 87 mm[Hg] Dr. Zaida Gaston Work Phone: 7(011)810-416294 [place] [address] Work Phone: 08-28-2022 09:10-0500 Heart rate 75 /min Dr. Zaida Gaston Work Phone: [facility] Work Phone: 08-28-2022 09:10-0500 Respiratory rate 15 /min Dr. Zaida Gaston Work Phone: [facility] Work Phone: 08-28-2022 09:10-0500 Systolic blood pressure 155 mm[Hg] Dr. Zaida Gaston Work Phone: [facility] Work Phone: 08-25-2022 09:50-0500 Body temperature 98.29 [degF] Zaida Gaston MD Work Phone: [facility] 08-25-2022 09:50-0500 Body weight 101.61 kg Zaida Gaston MD Work Phone: [facility] 08-25-2022 09:50-0500 Diastolic blood pressure 72 mm[Hg] Zaida Gaston MD Work Phone: [facility] 08-25-2022 09:50-0500 Heart rate 84 /min Zaida Gaston MD Work Phone: [facility] 08-25-2022 09:50-0500 Respiratory rate 16 /min Zaida Gaston MD Work Phone: [facility] 08-25-2022 09:50-0500 Systolic blood pressure 134 mm[Hg] Zaida Gaston MD Work Phone: [facility] 08-23-2022 10:36-0500 Body mass index (BMI) [Ratio] 34.2 kg/m2 Dr. Zaida Gaston Work Phone: [facility] Work Phone: 08-17-2022 14:56-0500 Diastolic blood pressure 70 mm[Hg] Dr. Zaida Gaston Work Phone: [facility] 08-17-2022 14:56-0500 Systolic blood pressure 130 mm[Hg] Dr. Zaida Gaston Work Phone: [facility] 08-17-2022 14:55-0500 Body mass index (BMI) [Ratio] 34 kg/m2 Dr. Zaida Gaston Work Phone: 0(935)[phone] [place] [address] 08-17-2022 14:55-0500 Body weight 101.[address] Zaida Gaston Work Phone: 7(200)[phone] [place] [address] 08-17-2022 14:55-0500 Heart rate 92 /min Dr. Zaida Gaston Work Phone: 8(117)[phone] [place] [address] 08-17-2022 14:55-0500 Respiratory rate 18 /min Dr. Zaida Gaston Work Phone: 9(847)[phone] [place] [address] 08-17-2022 14:55-0500 SaO2% (BldA) [Mass fraction] 97 % Dr. Zaida Gaston Work Phone: 9(765)[phone] [place] [address] 08-09-2022 00:26-0500 Body weight 102.[address] Zaida Gaston Work Phone: 3(252)[phone] [place] [address] 08-08-2022 11:07-0500 Body temperature 97.3 [degF] Dr. Zaida Gaston Work Phone: [phone] [place] [address] 08-08-2022 11:07-0500 Diastolic blood pressure 71 mm[Hg] Dr. Zaida Gaston Work Phone: 7([phone] [place] [address] 08-08-2022 11:07-0500 Heart rate 86 /min Dr. Zaida Gaston Work Phone: [phone])[phone] [place] [address] 08-08-2022 11:07-0500 Respiratory rate 17 /min Dr. Zaida Gaston Work Phone: 6(315)[phone] [place] [address] 08-08-2022 11:07-0500 Systolic blood pressure 147 mm[Hg] Dr. Zaida Gaston Work Phone: 1(359)[phone] [place] [address] 08-03-2022 11:24-0500 Body height 172.7 cm [facility] Work Phone: [facility] 08-03-2022 11:24-0500 Body temperature 98.91 [degF] [facility] Work Phone: [facility] 08-03-2022 11:24-0500 Body weight 101.33 kg [facility] Work Phone: [facility] 08-03-2022 11:24-0500 Diastolic blood pressure 64 mm[Hg] [facility] Work Phone: [facility] 08-03-2022 11:24-0500 Heart rate 82 /min [facility] Work Phone: [facility] 08-03-2022 11:24-0500 SaO2% (BldA) [Mass fraction] 94 % [facility] Work Phone: [facility] 08-03-2022 11:24-0500 Systolic blood pressure 117 mm[Hg] [facility] Work Phone: [facility] 07-26-2022 10:35-0500 Body mass index (BMI) [Ratio] 34.2 kg/m2 Dr. Zaida Gaston Work Phone: [facility] 07-13-2022 15:46-0400 Body height 172.7 cm Zaida Gaston MD Work Phone: [facility] 07-13-2022 15:46-0400 Body temperature 98.2 [degF] Zaida Gaston MD Work Phone: [facility] 07-13-2022 15:46-0400 Body weight 101.15 kg Zaida Gaston MD Work Phone: [facility] 07-13-2022 15:46-0400 Diastolic blood pressure 80 mm[Hg] Zaida Gaston MD Work Phone: [facility] 07-13-2022 15:46-0400 Heart rate 92 /min Zaida Gaston MD Work Phone: [facility] 07-13-2022 15:46-0400 Respiratory rate 14 /min Zaida Gaston MD Work Phone: [facility] 07-13-2022 15:46-0400 SaO2% (BldA) [Mass fraction] 96 % Zaida Gaston MD Work Phone: [facility] 07-13-2022 15:46-0400 Systolic blood pressure 152 mm[Hg] Zaida Gaston MD Work Phone: [facility] 07-10-2022 00:27-0400 Body weight 102.[address] Zaida Gaston Work Phone: [facility] 07-09-2022 15:36-0400 Body temperature 97.8 [degF] Dr. Zaida Gaston Work Phone: [facility] 07-09-2022 15:36-0400 Diastolic blood pressure 83 mm[Hg] Dr. Zaida Gaston Work Phone: [facility] 07-09-2022 15:36-0400 Heart rate 78 /min Dr. Zaida Gaston Work Phone: [facility] 07-09-2022 15:36-0400 Respiratory rate 20 /min Dr. Zaida Gaston Work Phone: [facility] 07-09-2022 15:36-0400 Systolic blood pressure 142 mm[Hg] Dr. Zaida Gaston Work Phone: [facility] 07-05-2022 11:55-0400 Body height 172.7 cm [facility] Work Phone: [facility] 07-05-2022 11:55-0400 Body temperature 98.2 [degF] [facility] Work Phone: [facility] 07-05-2022 11:55-0400 Body weight 99.79 kg [facility] Work Phone: [facility] 07-05-2022 11:55-0400 Diastolic blood pressure 65 mm[Hg] [facility] Work Phone: [facility] 07-05-2022 11:55-0400 Heart rate 83 /min [facility] Work Phone: [facility] 07-05-2022 11:55-0400 SaO2% (BldA) [Mass fraction] 96 % [facility] Work Phone: [facility] 07-05-2022 11:55-0400 Systolic blood pressure 114 mm[Hg] [facility] Work Phone: [facility] 06-28-2022 09:05-0400 Body mass index (BMI) [Ratio] 34.2 kg/m2 Dr. Zaida Gaston Work Phone: [facility] 06-09-2022 01:21-0400 Body weight 102.[address] Zaida Gaston Work Phone: [facility] 06-08-2022 11:37-0400 Body height 172.7 cm [facility] Work Phone: [facility] 06-08-2022 11:37-0400 Body temperature 99.3 [degF] [facility] Work Phone: [facility] 06-08-2022 11:37-0400 Body weight 96.62 kg [facility] Work Phone: [facility] 06-08-2022 11:37-0400 Diastolic blood pressure 72 mm[Hg] [facility] Work Phone: [facility] 06-08-2022 11:37-0400 Heart rate 100 /min [facility] Work Phone: [facility] 06-08-2022 11:37-0400 SaO2% (BldA) [Mass fraction] 97 % [facility] Work Phone: [facility] 06-08-2022 11:37-0400 Systolic blood pressure 133 mm[Hg] [facility] Work Phone: [facility] 06-07-2022 09:01-0400 Body mass index (BMI) [Ratio] 34.2 kg/m2 Dr. Zaida Gaston Work Phone: [facility] Work Phone: 06-07-2022 09:01-0400 Body temperature 97.8 [degF] Dr. Zaida Gaston Work Phone: [facility] Work Phone: 06-07-2022 09:01-0400 Diastolic blood pressure 73 mm[Hg] Dr. Zaida Gaston Work Phone: [facility] Work Phone: 06-07-2022 09:01-0400 Heart rate 63 /min Dr. Zaida Gaston Work Phone: [facility] Work Phone: 06-07-2022 09:01-0400 Systolic blood pressure 117 mm[Hg] Dr. Zaida Gaston Work Phone: [facility] Work Phone: 05-10-2022 10:22-0400 Respiratory rate 16 /min Dr. Zaida Gaston Work Phone: [facility] Work Phone: 05-10-2022 00:31-0400 Body weight 102.[address] Zaida Gaston Work Phone: [facility] Work Phone: 05-09-2022 13:36-0400 Body mass index (BMI) [Ratio] 34.2 kg/m2 Dr. Zaida Gaston Work Phone: [facility] Work Phone: 05-09-2022 13:36-0400 Body temperature 97.1 [degF] Dr. Zaida Gaston Work Phone: [facility] Work Phone: 05-09-2022 13:36-0400 Diastolic blood pressure 74 mm[Hg] Dr. Zaida Gaston Work Phone: [facility] Work Phone: 05-09-2022 13:36-0400 Heart rate 92 /min Dr. Zaida Gaston Work Phone: [facility] Work Phone: 05-09-2022 13:36-0400 Respiratory rate 16 /min Dr. Zaida Gaston Work Phone: [facility] Work Phone: 05-09-2022 13:36-0400 Systolic blood pressure 145 mm[Hg] Dr. Zaida Gaston Work Phone: [facility] Work Phone: 04-12-2022 09:08-0400 Body mass index (BMI) [Ratio] 34.2 kg/m2 Dr. Zaida Gaston Work Phone: [facility] Work Phone: 04-12-2022 09:08-0400 Body temperature 97.5 [degF] Dr. Zaida Gaston Work Phone: [facility] Work Phone: 04-12-2022 09:08-0400 Diastolic blood pressure 76 mm[Hg] Dr. Zaida Gaston Work Phone: [facility] Work Phone: 04-12-2022 09:08-0400 Heart rate 101 /min Dr. Zaida Gaston Work Phone: [facility] Work Phone: 04-12-2022 09:08-0400 Systolic blood pressure 124 mm[Hg] Dr. Zaida Gaston Work Phone: [facility] Work Phone: 04-10-2022 16:15-0400 Body height 172.7 cm Zaida Gaston MD Work Phone: [facility] 04-10-2022 16:15-0400 Body temperature 99.3 [degF] Zaida Gaston MD Work Phone: [facility] 04-10-2022 16:15-0400 Body weight 94.8 kg Zaida Gaston MD Work Phone: [facility] 04-10-2022 16:15-0400 Diastolic blood pressure 60 mm[Hg] Zaida Gaston MD Work Phone: [facility] 04-10-2022 16:15-0400 Heart rate 97 /min Zaida Gaston MD Work Phone: [facility] 04-10-2022 16:15-0400 Respiratory rate 12 /min Zaida aGston MD Work Phone: [facility] 04-10-2022 16:15-0400 SaO2% (BldA) [Mass fraction] 95 % Zaida Gaston MD Work Phone: [facility] 04-10-2022 16:15-0400 Systolic blood pressure 122 mm[Hg] Zaida Gaston MD Work Phone: [facility] 04-09-2022 00:28-0400 Body weight 102.[address] Zaida Gaston Work Phone: [facility] Work Phone: 04-09-2022 00:28-0400 Respiratory rate 20 /min Dr. Zaida Gaston Work Phone: [facility] Work Phone: 04-05-2022 08:39-0400 Body mass index (BMI) [Ratio] 34.2 kg/m2 Dr. Zaida Gaston Work Phone: [facility] Work Phone: 04-05-2022 08:39-0400 Body temperature 98.4 [degF] Dr. Zaida Gaston Work Phone: [facility] Work Phone: 04-05-2022 08:39-0400 Diastolic blood pressure 82 mm[Hg] Dr. Zaida Gaston Work Phone: [facility] Work Phone: 04-05-2022 08:39-0400 Heart rate 95 /min Dr. Zaida Gaston Work Phone: [facility] Work Phone: 04-05-2022 08:39-0400 Respiratory rate 20 /min Dr. Zaida Gaston Work Phone: [facility] Work Phone: 04-05-2022 08:39-0400 Systolic blood pressure 186 mm[Hg] Dr. Zaida Gaston Work Phone: [facility] Work Phone: 03-28-2022 10:39-0400 Body temperature 98.2 [degF] Dr. Zaida Gaston Work Phone: [facility] Work Phone: 03-28-2022 10:39-0400 Diastolic blood pressure 87 mm[Hg] Dr. Zaida Gaston Work Phone: [facility] Work Phone: 03-28-2022 10:39-0400 Heart rate 85 /min Dr. Zaida Gaston Work Phone: [facility] Work Phone: 03-28-2022 10:39-0400 Respiratory rate 16 /min Dr. Zaida Gaston Work Phone: [facility] Work Phone: 03-28-2022 10:39-0400 SaO2% (BldA) [Mass fraction] 96 % Dr. Zaida Gaston Work Phone: [facility] Work Phone: 03-28-2022 10:39-0400 Systolic blood pressure 138 mm[Hg] Dr. Zaida Gaston Work Phone: [facility] Work Phone: 03-28-2022 06:00-0400 Body weight 96.[address] Zaida Gaston Work Phone: [facility] Work Phone: 03-27-2022 13:38-0400 Body height 172.[address] Zaida Gaston Work Phone: [facility] Work Phone: 03-24-2022 12:00-0400 Inhaled oxygen flow rate 2 L/min Dr. Zaida Gaston Work Phone: [facility] Work Phone: 03-24-2022 03:32-0400 Body mass index (BMI) [Ratio] 31.7 kg/m2 Dr. Zaida Gaston Work Phone: [facility] Work Phone: 03-24-2022 03:12-0400 Body temperature 100.2 [degF] Dr. Zaida Gaston Work Phone: [facility] Work Phone: 03-24-2022 03:12-0400 Diastolic blood pressure 61 mm[Hg] Dr. Zaida Gaston Work Phone: [facility] Work Phone: 03-24-2022 03:12-0400 Heart rate 107 /min Dr. Zaida Gaston Work Phone: [facility] Work Phone: 03-24-2022 03:12-0400 Respiratory rate 20 /min Dr. Zaida Gaston Work Phone: [facility] Work Phone: 03-24-2022 03:12-0400 SaO2% (BldA) [Mass fraction] 92 % Dr. Zaida Gaston Work Phone: [facility] Work Phone: 03-24-2022 03:12-0400 Systolic blood pressure 144 mm[Hg] Dr. Zaida Gaston Work Phone: [facility] Work Phone: 03-24-2022 01:02-0400 Body height 172.[address] Zaida Gaston Work Phone: [facility] Work Phone: 03-24-2022 01:02-0400 Body mass index (BMI) [Ratio] 36.1 kg/m2 Dr. Zaida Gaston Work Phone: [facility] Work Phone: 03-24-2022 01:02-0400 Body weight 107.[address] Zaida Gaston Work Phone: [facility] Work Phone: 03-13-2022 10:06-0400 Body mass index (BMI) [Ratio] 34.2 kg/m2 Dr. Zaida Gaston Work Phone: [facility] Work Phone: 03-13-2022 10:06-0400 Body temperature 98.2 [degF] Dr. Zaida Gaston Work Phone: [facility] Work Phone: 03-13-2022 10:06-0400 Diastolic blood pressure 77 mm[Hg] Dr. Zaida Gaston Work Phone: [facility] Work Phone: 03-13-2022 10:06-0400 Heart rate 89 /min Dr. Zaida Gaston Work Phone: [facility] Work Phone: 03-13-2022 10:06-0400 Respiratory rate 16 /min Dr. Zaida Gaston Work Phone: [facility] Work Phone: 03-13-2022 10:06-0400 Systolic blood pressure 137 mm[Hg] Dr. Zaida Gaston Work Phone: [facility] Work Phone: 03-09-2022 00:36-0400 Body weight 102.[address] Zaida Gaston Work Phone: [facility] Work Phone: 03-08-2022 14:11-0400 Body height 172.7 cm [facility] Work Phone: [facility] 03-08-2022 14:11-0400 Body temperature 97.59 [degF] [facility] Work Phone: [facility] 03-08-2022 14:11-0400 Body weight 99.16 kg [facility] Work Phone: [facility] 03-08-2022 14:11-0400 Diastolic blood pressure 72 mm[Hg] [facility] Work Phone: [facility] 03-08-2022 14:11-0400 Heart rate 88 /min [facility] Work Phone: [facility] 03-08-2022 14:11-0400 SaO2% (BldA) [Mass fraction] 100 % [facility] Work Phone: [facility] 03-08-2022 14:11-0400 Systolic blood pressure 145 mm[Hg] [facility] Work Phone: [facility] 03-06-2022 10:13-0400 Body mass index (BMI) [Ratio] 34.2 kg/m2 Dr. Zaida Gaston Work Phone: [facility] Work Phone: 03-06-2022 10:13-0400 Body temperature 96.9 [degF] Dr. Zaida Gaston Work Phone: [facility] Work Phone: 03-06-2022 10:13-0400 Diastolic blood pressure 83 mm[Hg] Dr. Zaida Gaston Work Phone: [facility] Work Phone: 03-06-2022 10:13-0400 Heart rate 83 /min Dr. Zaida Gaston Work Phone: [facility] Work Phone: 03-06-2022 10:13-0400 Systolic blood pressure 138 mm[Hg] Dr. Zaida Gaston Work Phone: [facility] Work Phone: 02-07-2022 01:03-0400 Body weight 102.[address] Zaida Gaston Work Phone: [facility] Work Phone: 02-07-2022 01:03-0400 Respiratory rate 16 /min Dr. Zaida Gaston Work Phone: [facility] Work Phone: 02-06-2022 10:03-0400 Body mass index (BMI) [Ratio] 34.2 kg/m2 Dr. Zaida Gaston Work Phone: [facility] Work Phone: 02-06-2022 10:03-0400 Body temperature 97.8 [degF] Dr. Zaida Gaston Work Phone: [facility] Work Phone: 02-06-2022 10:03-0400 Diastolic blood pressure 81 mm[Hg] Dr. Zaida Gaston Work Phone: [facility] Work Phone: 02-06-2022 10:03-0400 Heart rate 87 /min Dr. Zaida Gaston Work Phone: [facility] Work Phone: 02-06-2022 10:03-0400 Respiratory rate 16 /min Dr. Zaida Gaston Work Phone: [facility] Work Phone: 02-06-2022 10:03-0400 Systolic blood pressure 152 mm[Hg] Dr. Zaida Gaston Work Phone: [facility] Work Phone: 01-19-2022 10:41-0400 Body height 172.[address] Zaida Gaston Work Phone: [facility] Work Phone: 01-19-2022 10:41-0400 Body mass index (BMI) [Ratio] 33.8 kg/m2 Dr. Zaida Gaston Work Phone: [facility] Work Phone: 01-19-2022 10:41-0400 Body weight 100.[address] Zaida Gaston Work Phone: [facility] Work Phone: 01-19-2022 10:41-0400 Diastolic blood pressure 68 mm[Hg] Dr. Zaida Gaston Work Phone: [facility] Work Phone: 01-19-2022 10:41-0400 Heart rate 96 /min Dr. Zaida Gaston Work Phone: [facility] Work Phone: 01-19-2022 10:41-0400 Respiratory rate 16 /min Dr. Zaida Gaston Work Phone: [facility] Work Phone: 01-19-2022 10:41-0400 Systolic blood pressure 152 mm[Hg] Dr. Zaida Gaston Work Phone: [facility] Work Phone: 01-19-2022 10:41-0400 Body height 172.[address] Zaida Gaston Work Phone: [facility] Work Phone: 01-19-2022 10:41-0400 Body mass index (BMI) [Ratio] 33.8 kg/m2 Dr. Zaida Gaston Work Phone: [facility] Work Phone: 01-19-2022 10:41-0400 Body weight 100.[address] Zaida Gaston Work Phone: [facility] Work Phone: 01-19-2022 10:41-0400 Diastolic blood pressure 68 mm[Hg] Dr. Zaida Gaston Work Phone: [facility] Work Phone: 01-19-2022 10:41-0400 Heart rate 96 /min Dr. Zaida Gaston Work Phone: [facility] Work Phone: 01-19-2022 10:41-0400 Respiratory rate 16 /min Dr. Zaida Gaston Work Phone: [facility] Work Phone: 01-19-2022 10:41-0400 Systolic blood pressure 152 mm[Hg] Dr. Zaida Gaston Work Phone: [facility] Work Phone: 01-16-2022 09:46-0400 Body mass index (BMI) [Ratio] 34.2 kg/m2 Dr. Zaida Gaston Work Phone: [facility] Work Phone: 01-16-2022 09:46-0400 Body temperature 98.2 [degF] Dr. Zaida Gaston Work Phone: [facility] Work Phone: 01-16-2022 09:46-0400 Diastolic blood pressure 77 mm[Hg] Dr. Zaida Gaston Work Phone: [facility] Work Phone: 01-16-2022 09:46-0400 Heart rate 114 /min Dr. Zaida Gaston Work Phone: [facility] Work Phone: 01-16-2022 09:46-0400 Respiratory rate 16 /min Dr. Zaida Gaston Work Phone: [facility] Work Phone: 01-16-2022 09:46-0400 Systolic blood pressure 153 mm[Hg] Dr. Zaida Gaston Work Phone: [facility] Work Phone: 01-07-2022 00:44-0400 Body weight 102.[address] Zaida Gaston Work Phone: [facility] Work Phone: 01-02-2022 09:59-0400 Body mass index (BMI) [Ratio] 34.2 kg/m2 Dr. Zaida Gaston Work Phone: [facility] Work Phone: 12-26-2021 09:01-0400 Body height 172.[address] Zaida Gaston Work Phone: [facility] Work Phone: 12-26-2021 09:01-0400 Body temperature 96.8 [degF] Dr. Zaida Gaston Work Phone: [facility] Work Phone: 12-26-2021 09:01-0400 Body weight 102.[address] Zaida Gaston Work Phone: [facility] Work Phone: 12-26-2021 09:01-0400 Diastolic blood pressure 69 mm[Hg] Dr. Zaida Gaston Work Phone: [facility] Work Phone: 12-26-2021 09:01-0400 Heart rate 87 /min Dr. Zaida Gaston Work Phone: [facility] Work Phone: 12-26-2021 09:01-0400 Respiratory rate 18 /min Dr. Zaida Gaston Work Phone: [facility] Work Phone: 12-26-2021 09:01-0400 Systolic blood pressure 153 mm[Hg] Dr. Zaida Gaston Work Phone: [facility] Work Phone: 12-08-2021 11:57-0400 Body height 172.7 cm [facility] Work Phone: [facility] 12-08-2021 11:57-0400 Body temperature 99.19 [degF] [facility] Work Phone: [facility] 12-08-2021 11:57-0400 Body weight 99.79 kg [facility] Work Phone: [facility] 12-08-2021 11:57-0400 Diastolic blood pressure 81 mm[Hg] [facility] Work Phone: [facility] 12-08-2021 11:57-0400 Heart rate 84 /min [facility] Work Phone: [facility] 12-08-2021 11:57-0400 SaO2% (BldA) [Mass fraction] 97 % [facility] Work Phone: [facility] 12-08-2021 11:57-0400 Systolic blood pressure 150 mm[Hg] [facility] Work Phone: [facility] 09-20-2021 13:54-0500 Body temperature 97.3 [degF] Dr. Zaida Gaston Work Phone: [facility] Work Phone: 09-20-2021 13:54-0500 Diastolic blood pressure 58 mm[Hg] Dr. Zaida Gaston Work Phone: [facility] Work Phone: 09-20-2021 13:54-0500 Heart rate 77 /min Dr. Zaida Gaston Work Phone: [facility] Work Phone: 09-20-2021 13:54-0500 Respiratory rate 18 /min Dr. Zaida Gaston Work Phone: [facility] Work Phone: 09-20-2021 13:54-0500 SaO2% (BldA) [Mass fraction] 93 % Dr. Zaida Gaston Work Phone: [facility] Work Phone: 09-20-2021 13:54-0500 Systolic blood pressure 113 mm[Hg] Dr. Zaida Gaston Work Phone: [facility] Work Phone: 09-18-2021 09:55-0500 Body height 172.[address] Zaida Gaston Work Phone: [facility] Work Phone: 09-18-2021 09:55-0500 Body weight 91.[address] Zaida Gaston Work Phone: [facility] Work Phone: 09-17-2021 22:38-0500 Body mass index (BMI) [Ratio] 30.8 kg/m2 Dr. Zaida Gaston Work Phone: [facility] Work Phone: 09-14-2021 12:15-0500 Heart rate 88 /min Dr. Zaida Gaston Work Phone: [facility] Work Phone: 09-14-2021 12:15-0500 Respiratory rate 17 /min Dr. Zaida Gaston Work Phone: [facility] Work Phone: 09-14-2021 12:15-0500 SaO2% (BldA) [Mass fraction] 96 % Dr. Zaida Gaston Work Phone: [facility] Work Phone: 09-14-2021 07:11-0500 Body mass index (BMI) [Ratio] 33.2 kg/m2 Dr. Zaida Gaston Work Phone: [facility] Work Phone: 09-14-2021 07:11-0500 Body temperature 97 [degF] Dr. Zaida Gaston Work Phone: [facility] Work Phone: 09-14-2021 07:11-0500 Body weight [address] Zaida Gaston Work Phone: [facility] Work Phone: 09-14-2021 07:11-0500 Diastolic blood pressure 66 mm[Hg] Dr. Zaida Gaston Work Phone: [facility] Work Phone: 09-14-2021 07:11-0500 Systolic blood pressure 117 mm[Hg] Dr. Zaida Gastno Work Phone: [facility] Work Phone: Encounters Encounter Date Encounter Type Care Provider Facility Start: 05-14-2025 End: 05-14-2025 Office outpatient visit 25 minutes Mariza Vences 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 Work Phone: Urology Comment on above: Nephrolithiasis (Sandrine deep Dx); Kidney replaced by transplant (HCC) Start: 05-14-2025 ambulatory MARIZA VENCES Facility:[facility] Start: 05-13-2025 End: 05-13-2025 Telephone encounter Zaida Gaston MD Work Phone: NOC Comment on above: Transition Of Care Start: 05-05-2025 End: 05-10-2025 ambulatory Meganfarideh Montejo 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 [employer] Work Phone: [facility] [place] Start: 05-04-2025 End: 05-04-2025 Telephone encounter Zaida Gaston MD Work Phone: [facility] Comment on above: Transition Of Care Start: 04-21-2025 End: 04-21-2025 Telephone encounter Kindra Martinez tableau administrator Comment on above: 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 - O ther Start: 04-18-2025 End: 05-02-2025 Evaluation and management of inpatient CHUY SANTIAGO Facility:[facility] Start: 04-17-2025 Dr. Shruti Jara MD - [facility] Work Phone: Start: 04-16-2025 ambulatory [...] 04-12-2025 End: 04-12-2025 Telephone encounter Verna Jensen [facility] Work Phone: [facility] Comment on above: Missed Appointment ( Primary care reschedule) Start: 04-07-2025 End: 04-07-2025 Telephone encounter Luzmaria Bagley MSW Navigation Start: 04-05-2025 End: 04-08-2025 Refill Zaida Gaston MD Work Phone: [facility] Start: 04-04-2025 End: 04-04-2025 Dr. Chuy Santiago MD -Emergency Departmen t Work Phone: Start: 04-04-2025 End: 04-04-2025 Emergency department patient visit Dr. Zaida Gaston MD Work Phone: -Emergency Department Work Phone: Start: 03-15-2025 End: 03-15-2025 Telephone encounter 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 APRN.[employer]MER O[employer]ATOR [employer] Work Phone: [facility] Comment on above: Medication Problem Follow Up Start: 03-10-2025 End: 03-10-2025 Dr. Byron Saldana DO -Emergency Departny nt Work Phone: Start: 03-10-2025 End: 03-10-2025 Emergency department patient visit Dr. Zaida Gaston MD Work Phone: -Emergency Department Work Phone: Start: 03-08-2025 End: 03-08-2025 Telephone encounter Verna Jensen [facility] Work Phone: [facility] Comment on above: Diabetes Start: 03-08-2025 End: 03-08-2025 ambulatory ZAIDA GASTON Facility:[facility] Start: 03-08-2025 End: 03-08-2025 Patient encounter procedure Verna Jensen [facility] Work Phone: [facility] Comment on above: Type 1 diabetes aggie itus on insulin therapy (HCC) (Primary Dx); Medication management Start: 03-08-2025 End: 03-08-2025 Telemedicine consultation with patient Verna Jensen [facility] Work Phone: [facility] Start: 02-25-2025 End: 02-25-2025 Telephone encounter Xiang Deutsch RN Angio Comment on above: IR Outpatient Tube A ppointment Request Start: 02-25-2025 End: 02-25-2025 ambulatory DONA MARTINEZ Facility:[facility] Start: 02-15-2025 End: 02-15-2025 Telephone encounter Verna Jensen [facility] Work Phone: [facility] [...] End: 02-07-2025 Dr. Toni Nelson [facility] Work Phone: Start: 02-07-2025 End: 02-07-2025 [...] Start: 02-05-2025 End: 02-05-2025 ambulatory ZAIDA GASTON Facility:[facility] Start: 02-04-2025 End: 02-04-2025 Telephone encounter Zaida Gaston MD Work Phone: NOC Comment on above: Transition Of Care Start: 02-03-2025 End: 02-03-2025 Telephone encounter Danni Singh RN Angio Comment on above: Follow Up Start: 02-02-2025 End: 02-02-2025 Telephone encounter Bon Concepcion RN Urology Start: 01-27-2025 End: 01-29-2025 Evaluation and management of inpatient YONY WILL Facility:[facility] Start: 01-26-2025 End: 01-27-2025 Dr. Yony Solis [facility] Work Phone: Start: 01-26-2025 End: 01-27-2025 Emergency department patient visit Dr. Zaida Gaston MD Work Phone: -Emergency Department Work Phone: Start: 01-06-2025 End: 03-08-2025 Follow-up encounter 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 APRN.TRIMMER OPERATOR [employer] Work Phone: [facility] Start: 01-01-2025 End: 01-01-2025 ambulatory [facility] Facility:[facility] Start: 12-30-2024 End: 12-30-2024 ambulatory DELIA KAUFMAN Facility:[facility] Start: 12-03-2024 ambulatory [facility] Start: 11-19-2024 End: 11-19-2024 Emergency department patient visit Dr. Zaida Gaston MD Work Phone: -Emergency Department Work Phone: Start: 11-11-2024 ambulatory [facility] Facility[facility] Start: 09-28-2024 End: 09-28-2024 Office outpatient visit 25 minutes Zaida Gaston MD Work Phone: [facility] [place] Comment on above: Hypertension goal BP (blood pressure) < 140/90 (Primary Dx); Type 1 diabetes mellitus on insulin therapy (HCC); Moderate episode of recurrent major depressive disorder (HCC); Vitamin D deficiency; Gastroesophageal reflux disease without esophagitis Start: 09-28-2024 End: 09-28-2024 ambulatory [facility] Facility:[facility] Start: 09-28-2024 End: 09-28-2024 Refill Alana Kent APRN.TRIMMER OPERATOR [employer] Work Phone: [facility] Comment on above: Refill Request Start: 09-08-2024 End: 09-15-2024 ambulatory Matty Lewis MA [facility] Start: 09-08-2024 End: 09-15-2024 Patient encounter procedure Matty Lewis MA [facility] [place] Comment on above: Population Health Na vigation Outreach ([facility] ) Start: 07-31-2024 End: 07-31-2024 Refill Zaida Gaston MD Work Phone: Internal Medicine [place] Comment on above: Refill Request Start: 07-28-2024 End: 07-28-2024 Refill Alana Kent APRN.CNP Work Phone: Transplant Center Comment on above: Refill Request Start: 07-28-2024 End: 07-28-[address] Steve Durand MD -[facility] Work Phone: Start: 07-28-2024 End: 07-28-2024 Refill Chyna Conroy PA-C Work Phone: Transplant Center Start: 07-13-2024 End: 07-13-2024 ambulatory Matty Lewis MA [facility] [place] Comment on above: Stomach Medication Start: 07-13-2024 End: 07-13-2024 Patient encounter procedure Matty Lewis MA [facility] [place] Comment on above: Population Health Na vigation Outreach [facility] Refill Request Start: 06-23-2024 End: 06-23-2024 Telephone encounter Amanda RUIZ Work Phone: Transplant Center Comment on above: Follow Up Start: 06-18-2024 End: 06-18-2024 Telephone encounter Amanda RUIZ Work Phone: Transplant Center Comment on above: Follow Up Start: 06-18-2024 End: 06-18-2024 ambulatory ZAIDA GASTON Facility:[facility] Start: 06-18-2024 End: 06-18-2024 Office outpatient visit 25 minutes Zaida Gaston MD Work Phone: Internal Medicine [place] Comment on above: Type 1 diabetes aggie itus on insulin therapy (HCC) (Primary Dx); Encounter for immunization; Hypertension goal BP (blood pressure) < 140/90; Other hyperlipidemia; Stage 3a chronic kidney disease (HCC) Start: 06-16-2024 End: 06-18-2024 Telephone encounter Alana Kent APRN.TRIMMER OPERATOR THREE KNIFE Work Phone: Transplant Center Comment on above: Medication Problem Start: 06-03-2024 End: 06-03-2024 ambulatory Verna [facility] Work Phone: [facility] Start: 06-03-2024 End: 06-03-2024 Patient encounter procedure Verna [facility] Work Phone: [facility] Start: 05-14-2024 End: 05-27-2024 Telephone encounter Zaida Gaston MD Work Phone: Family [facility] Comment on above: Patient Update; Requ est for new Dexcom Start: 04-30-2024 End: 04-30-2024 ambulatory Zaida Gaston Facility:[facility] Start: 04-01-2024 Telephone encounter Lali Ramires MD Work Phone: General Surgery Comment on above: Medication Problem Start: 04-01-2024 ambulatory AMARA Escamilla ty:[facility] Start: 04-01-2024 End: 04-01-2024 Subsequent hospital visit by physician Lali Raman MD Work Phone: [facility] Endoscopy Comment on above: Diarrhea, unspecifie d type [R19.7] Start: 03-24-2024 End: 03-24-2024 Patient encounter procedure Nia James APRN.TRIMMER OPERATOR THREE KNIFE Work Phone: General Surgery Comment on above: Diarrhea, unspecifie d type (Primary Dx); Gastroesophageal reflux disease without esophagitis; FH: colon cancer in first degree relative <60 years old Start: 03-18-2024 End: 03-18-2024 Patient encounter procedure 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 APRN.TRIMMER OPERATOR THREE KNIFE Work Phone: Internal Medicine [place] Comment on above: Moderate episode of recurrent major depressive disorder (HCC) (Primary Dx) Start: 02-26-2024 Telephone encounter Zaida blanton MD Work Phone: Internal Medicine [place] Comment on above: Fax Request Start: 01-22-2024 End: 01-22-2024 Patient encounter procedure Delia Shae AUGUST Work Phone: Internal Medicine [place] Comment on above: Type 1 diabetes aggie itus on insulin therapy (HCC) (Primary Dx); Moderate episode of recurrent major depressive disorder (HCC); Hypertension goal BP (blood pressure) < 140/90; Kidney transplant recipient; Stage 3a chronic kidney disease (HCC); 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 Zaida Gaston Work Phone: [facility] Work Phone: Start: 01-14-2024 End: 01-14-[address] Zaida Gaston Work Phone: [facility] Work Phone: Start: 01-13-2024 End: 01-13-2024 Patient encounter procedure [facility] Work Phone: Transplant Center Comment on above: Kidney replaced by t ransplant (Primary Dx) Start: 01-03-2024 End: 01-03-[address] Zaida Gaston Work Phone: [facility] Work Phone: Start: 01-03-2024 End: 01-03-[address] Zaida Gaston Work Phone: [facility] Work Phone: Start: 01-02-2024 End: 01-02-[address] Zaida Gaston Work Phone: [facility] Work Phone: Start: 12-13-2023 Refill Xiang Perez PA-C Work Phone: Internal Medicine [place] Comment on above: Refill Request Start: 11-27-2023 Refill Conchis Sheets RN [facility] Comment on above: Rx Refills (TAC leve l 2.8/) Start: 11-26-2023 End: 11-26-2023 Patient encounter procedure Xiang Perez PA-C Work Phone: Internal Medicine [place] Comment on above: Diarrhea, unspecifie d type [...] Zaida blanton MD Work Phone: Internal Medicine [place] Comment on above: Orders Start: 10-29-2023 Refill Oscar Mas PA-C Work Phone: Urology Comment on above: Refill Request Start: 10-24-2023 End: 10-24-[address] Zaida Gaston Work Phone: [facility] Work Phone: Start: 10-14-2023 Refill Zaida Ordonez Work Phone: [facility] [place] Comment on above: Refill Request Start: 10-11-2023 Refill Zaida Ordonez Work Phone: [facility] [place] Comment on above: Refill Request Start: 10-10-2023 ambulatory Delia ArangoTRIMMER OPERATOR THREE KNIFE Work Phone: Internal Medicine [place] Comment on above: Bupropion Start: 09-18-2023 End: 09-18-2023 Patient encounter procedure 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 APRN.TRIMMER OPERATOR THREE KNIFE Work Phone: Internal Medicine [place] Comment on above: Type 1 diabetes aggie itus on insulin therapy (HCC) (Primary Dx); Kidney transplant recipient; Hypertension goal BP (blood pressure) < 140/90; Moderate episode of recurrent major depressive disorder (HCC); LUANNE (obstructive sleep apnea) Start: 08-27-2023 Telephone encounter Zaida blanton MD Work Phone: [facility] Comment on above: CGM forms Start: [...] Immunization Clinic Nurse [place] Work Phone: Family [facility] [place] Comment on above: Arrived Start: 07-01-2023 Refill Zaida Ordonez Work Phone: Internal Medicine [place] Comment on above: Refill Request (st ging to new pharmacy) Start: 05-21-2023 End: 05-21-2023 Patient encounter procedure Xiang Perez PA-C Work Phone: Internal Medicine [place] Comment on above: Diabetic polyneuropa thy associated with type 2 diabetes mellitus (HCC) (Primary Dx); Moderate episode of recurrent major depressive disorder (HCC); Kidney transplant recipient; Elevated alkaline phosphatase level; Erectile dysfunction, unspecified erectile dysfunction type; Mixed hyperlipidemia Start: 04-09-2023 End: 04-09-2023 [facility] Comment on above: Pain of right lower extremity Start: 04-03-2023 Refill Zaida Ordonez Work Phone: [facility] [place] Comment on above: Refill Request Start: 03-20-2023 Refill Chelsea Ryan MD Work Phone: Transplant Center Comment on above: Refill Request Start: 03-14-2023 Orders Only Lg brown MD Work Phone: Transplant Center Comment on above: Encounter for afterc are following kidney transplant (Primary Dx) Start: 03-13-2023 End: 03-14-2023 Emergency department patient visit Dr. Zaida Gaston Work Phone: [facility] Work Phone: Start: 02-25-2023 End: 02-25-2023 Patient encounter procedure Zaida Gaston MD Work Phone: Internal Medicine [place] Comment on above: Hypertension goal BP (blood [...] encounter procedure Dr. Zaida Gaston Work Phone: [facility] Endocrinology Start: 01-11-2023 End: 01-11-[address] Zaida Gaston Work Phone: [facility] Work Phone: Start: 01-11-2023 End: 01-11-[address] Zaida Gaston Work Phone: [facility] Start: 01-02-2023 Telephone encounter Juvencio Haji RN [facility] Comment on above: Results Start: 12-31-2022 End: 12-31-2022 Patient encounter procedure [facility] Work Phone: Transplant Center Comment on above: Kidney replaced by t ransplant (Primary Dx); Encounter for aftercare following kidney transplant; Immunosuppressive management encounter following kidney transplant; ILDA (acute kidney injury) ([facility]) Start: 11-23-2022 End: 11-23-2022 Patient encounter procedure Zaida Gaston MD Work Phone: Internal Medicine [place] Comment on above: Moderate episode of recurrent major depressive disorder (HCC) (Primary Dx); 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 Work Phone: [facility] Comment on above: Type 1 diabetes aggie itus on insulin therapy (HCC) (Primary Dx) Start: 11-21-2022 Refill Delia Shae ArangoTRIMMER OPERATOR THREE KNIFE Work Phone: Internal Medicine [place] Comment on above: Refill Request Start: 11-04-2022 Non-patient / Non-visit Dr. Shai Gaston Work Phone: [facility] Start: 11-03-2022 Non-patient / Non-visit Dr. Shai Gaston Work Phone: [facility] Start: 11-02-2022 Non-patient / Non-visit Dr. Shai Gaston Work Phone: [facility] Start: 11-01-2022 End: 11-01-2022 Non-patient / Non-visit Dr. Ziada Gaston Work Phone: [facility] Start: 11-01-2022 End: 11-05-2022 Evaluation and management of inpatient Dr. Zaida Gaston Work Phone: [facility]-Medical Surgical 3 Start: 11-01-2022 Admission to [facility] surgery center Dr. Zaida Gaston Work Phone: [facility]-Rehabilitator Start: 11-01-[address] Zaida blanton Work Phone: [facility] Work Phone: Start: 11-01-2022 End: 11-06-[address] [facility]aston [facility] Start: 11-01-[address] William Gaston [facility] Start: 10-18-2022 End: 10-18-[address] Zaida Gaston Work Phone: [facility] Endocrinology Start: 10-15-2022 ambulatory Verna Jensen [facility] Work Phone: [facility] Comment on above: A1c Start: 10-15-2022 E-mail encounter fro silvano caregiver Verna Jensen [facility] Work Phone: [facility]RIQUE[facility] Start: 10-04-2022 End: 10-04-2022 Patient encounter procedure Verna Jensen [facility] Work Phone: [facility] Comment on above: Type 1 diabetes aggie itus on insulin therapy (HCC) (Primary Dx) Start: 09-27-2022 End: 10-09-[address] Zaida Gaston Work Phone: [facility] Work Phone: Start: 09-27-2022 End: 10-09-[address] Zaida Gaston Work Phone: [facility] Start: 09-24-2022 End: 09-24-2022 Patient encounter procedure Felicita Cameron [facility] Work Phone: Endocrinology Comment on above: Type 1 diabetes aggie itus on insulin therapy (HCC) (Primary Dx) Kidney replaced by t ransplant (Primary Dx); Immunosuppressive management encounter following kidney transplant; Mixed hyperlipidemia Start: 09-11-2022 Non-patient / Non-visit Dr. Shai Gaston Work Phone: [facility] Start: 09-06-2022 End: 09-08-[address] Zaida Gaston Work Phone: [facility] Work Phone: Start: 09-06-2022 End: 09-08-[address] Zaida Gaston Work Phone: [facility] Start: 09-06-2022 End: 09-06-[address] Zaida Gaston Work Phone: [facility] Endocrinology Start: 09-05-2022 Non-patient / Non-visit Dr. Shai Gaston Work Phone: [facility] Start: 08-29-2022 Non-patient / Non-visit Dr. Shai Gaston Work Phone: [facility] Start: 08-28-2022 End: 08-28-2022 Emergency department patient visit Dr. Zaida Gaston Work Phone: [facility]Emergency Department Start: 08-28-2022 Non-patient / Non-visit Dr. Shai Gaston Work Phone: [facility] Start: 08-28-[address] William Gaston [facility] Start: 08-27-2022 Non-patient / Non-visit Dr. Shai Gaston Work Phone: [facility] Start: 08-25-2022 End: 08-25-2022 Patient encounter procedure Zaida Gaston MD Work Phone: Internal Medicine [place] Comment on above: Diabetic ulcer of le [...] End: 08-23-2022 Patient encounter procedure Verna Jensen [facility] Work Phone: [facility] Comment on above: Type 1 diabetes aggie itus on insulin therapy (HCC) (Primary Dx); Medication management Start: 08-23-2022 Telephone encounter Verna ramirez [facility] Work Phone: [facility] Comment on above: Forms (CGM order) Start: 08-20-2022 Telephone encounter Zaida blanton MD Work Phone: Internal Medicine [place] Comment on above: Patient Update Start: 08-20-2022 Non-patient / Non-visit Dr. Shai Gaston Work Phone: [facility] Start: 08-17-2022 End: 08-17-[address] Zaida Gaston Work Phone: [facility] Start: 08-16-2022 Non-patient / Non-visit Dr. Shai Gaston Work Phone: [facility] Start: 08-15-2022 Non-patient / Non-visit Dr. Shai Gaston Work Phone: [facility] Start: 08-09-2022 Non-patient / Non-visit Dr. Shai Gaston Work Phone: [facility] Start: 08-08-2022 Non-patient / Non-visit Dr. Shai Gaston Work Phone: [facility] Start: 08-08-2022 End: 08-08-[address] Zaida Gaston [facility] Start: 08-07-2022 Telephone encounter Zaida blanton MD Work Phone: Internal Medicine [place] Comment on above: Release Of Medical R ecords Start: 08-07-2022 Non-patient / Non-visit Dr. Shai Gaston Work Phone: [facility] Start: 08-06-2022 Non-patient / Non-visit [facility] Start: 08-06-2022 Telephone encounter Zaida blanton MD Work Phone: Internal Medicine [place] Comment on above: [facility] requesting lab results Start: 08-03-2022 End: 08-03-2022 Patient encounter [facility] Work Phone: [facility] Comment on above: Kidney replaced by t ransplant (Primary Dx); Encounter for aftercare following kidney transplant; Immunosuppressive management encounter following kidney transplant; Essential hypertension Start: 08-01-2022 Non-patient / Non-visit Dr. Shai Gaston Work Phone: [facility] Start: 07-31-2022 ambulatory Zaida Ordonez Work Phone: Internal Medicine [place] Comment on above: Would like to see an Security Orderly Start: 07-31-2022 Non-patient / Non-visit Dr. Shai Gaston Work Phone: [facility] Start: 07-30-2022 Non-patient / Non-visit Dr. Shai Gaston Work Phone: [facility] Start: 07-26-2022 Non-patient / Non-visit Dr. Shai Gaston Work Phone: [facility] Start: 07-25-2022 Non-patient / Non-visit Dr. Shai Gaston Work Phone: [facility] Start: 07-23-2022 Non-patient / Non-visit Dr. Shai Gaston Work Phone: [facility] Start: 07-19-2022 Refill Zaida Ordonez Work Phone: Internal Medicine [place] Comment on above: Refill Request Start: 07-19-2022 Non-patient / Non-visit Dr. Shai Gaston [facility] Start: 07-18-2022 Non-patient / Non-visit Dr. Shai Gaston Work Phone: [facility] Start: 07-16-2022 Non-patient / Non-visit Dr. Shai Gaston Work Phone: [facility] Start: 07-13-2022 End: 07-13-2022 Patient encounter procedure Zaida Gaston MD Work Phone: Internal Medicine [place] Comment on above: Controlled type 2 di abetes mellitus without complication, without long-term current use of insulin (HCC) (Primary Dx); Uncontrolled hypertension; Need for influenza vaccination Start: 07-09-2022 Non-patient / Non-visit Dr. Shai Gaston Work Phone: [facility] Start: 07-09-2022 End: 07-09-[address] Zaida Gaston [facility] Start: 07-05-2022 End: 07-05-2022 Patient encounter procedure [facility] Work Phone: [facility] Comment on above: Encounter for afterc are following kidney transplant (Primary Dx); Kidney replaced by transplant; Immunosuppressive management encounter following kidney transplant; Essential hypertension; Transaminitis Start: 06-26-2022 Non-patient / Non-visit Dr. Shai Gaston Work Phone: [facility] Start: 06-08-2022 End: 06-08-2022 Patient encounter procedure [facility] Work Phone: [facility] Center Comment on above: Kidney replaced by t ransplant (Primary Dx) Start: 06-07-2022 End: 06-08-[address] Zaida Gaston Work Phone: [facility] Work Phone: Start: 06-07-2022 End: 06-08-[address] Zaida Gaston [facility] Start: 05-31-2022 End: 05-31-[address] Zaida Gaston Work Phone: [facility] Start: 05-31-2022 Non-patient / Non-visit Dr. Shai Gaston Work Phone: [facility] Start: 05-13-2022 Refill Dale MICHAELS.TRIMMER OPERATOR THREE KNIFE Work Phone: Endocrinology Comment on above: Refill Request Start: 05-12-2022 Refill Dale GUADALUPEN.TRIMMER OPERATOR THREE KNIFE Work Phone: Endocrinology Comment on above: Refill Request Start: 05-09-2022 End: 05-09-[address] Zaida Gaston Work Phone: [facility] Work Phone: Start: 05-09-2022 End: 05-09-[address] Zaida Gaston [facility] Start: 04-30-2022 End: 05-09-[address] Zaida Gaston Work Phone: [facility] Work Phone: Start: 04-30-2022 End: 05-09-[address] Zaida Gaston Work Phone: [facility]-Laboratory, Specimen Start: 04-30-[address] William Gaston Work Phone: [facility], Specimen Start: 04-25-2022 Refill Zaida Ordonez Work Phone: Internal [facility] [place] Comment on above: Refill Request Start: 04-12-[address] William Gaston Work Phone: [facility] Start: 04-10-2022 End: 04-10-2022 Patient encounter procedure Zaida Gaston MD Work Phone: [facility] Medicine [place] Comment on above: Amputation of little toe, initial encounter (HCC) (Primary Dx); Necrotizing fasciitis (HCC); Diabetic ulcer of left foot associated with type 2 diabetes mellitus, with muscle involvement without evidence of necrosis, unspecified part of foot (HCC); Osteomyelitis of toe (HCC) Start: 04-09-2022 Telephone encounter Zaida blanton MD Work Phone: [facility] Medicine [place] Comment on above: Patient Update; FYI- No Action Needed Start: 04-09-[address] William Gaston Work Phone: [facility], Specimen Start: 04-05-2022 End: 04-05-[address] Zaida Gaston Work Phone: [facility], Specimen Start: 04-05-2022 Refill [facility] Comment on above: Rx Refills Start: 04-05-2022 End: 04-08-[address] Zaida Gaston [facility] Start: 04-05-[address] William Gaston [facility] Start: 04-02-2022 End: 04-07-[address] Zaida Gaston Work Phone: [facility] Start: 03-28-2022 Orders Only Alana deluca APRN.TRIMMER OPERATOR THREE KNIFE Work Phone: Transplant Center Comment on above: Kidney replaced by t ransplant (Primary Dx) Start: 03-28-2022 Non-patient / Non-visit Dr. Shai Gaston Work Phone: [facility] Start: 03-27-2022 Telephone encounter Zaida blanton MD Work Phone: Internal [facility] [place] Comment on above: Home Health Orders Start: 03-27-2022 Non-patient / Non-visit Dr. Shai Gaston Work Phone: [facility] Start: 03-26-2022 Non-patient / Non-visit Dr. Shai Gaston Work Phone: [facility] Start: 03-25-2022 Non-patient / Non-visit Dr. Shai Gaston Work Phone: [facility] Start: 03-24-2022 Non-patient / Non-visit Dr. Shai Gaston Work Phone: [facility] Start: 03-24-2022 End: 03-28-2022 Evaluation and management of inpatient Dr. Zaida Gaston Work Phone: [facility]Intensive Care Unit Start: 03-13-[address] William Gaston Work Phone: [facility] Start: 03-08-2022 End: 03-08-2022 Patient encounter procedure [facility] Work Phone: [facility] Comment on above: Kidney replaced by t ransplant (Primary Dx); Encounter for aftercare following kidney transplant; Post-transplant erythrocytosis; Immunosuppressive management encounter following kidney transplant Start: 03-06-2022 End: 03-08-[address] Zaida Gaston Work Phone: [facility] Start: 03-02-2022 Telephone encounter Conner Molina (Pcn a) [facility] Transplant [facility] Comment on above: Electronic Communica tion Start: 02-14-2022 Refill Juvencio Haji RN [facility] [place] Comment on above: Refill Request; Medi cation Dosage Adjustment (High Envarsus 14.2) Start: 02-06-2022 End: 02-06-[address] Zaida Gaston Work Phone: [facility] Start: 01-19-2022 End: 01-19-[address] Zaida Gaston Work Phone: [facility] Start: 01-08-2022 Refill Solomon ramirez MD Work Phone: Transplant Center Comment on above: Refill Request Start: 01-02-2022 End: 01-06-[address] Zaida Gaston [facility] Start: 12-26-2021 Chart abstracting Kathy Jurado Research Coordinator [facility] Comment on above: Research (IRB# [id number]) Start: 12-20-2021 Orders Only Kathy Cochran esearch Coordinator [facility] Comment on above: Research subject (Pr imary Dx) Start: 12-20-2021 Patient entered into trial Kathy Jurado Research Coordinator [facility] Start: 12-08-2021 End: 12-08-2021 Patient encounter procedure [facility] Work Phone: [facility] Comment on above: S/P kidney transplan t (Primary Dx); Immunosuppressive management encounter following kidney transplant Start: 12-04-2021 End: 12-04-[address] Zaida Gaston Work Phone: [facility] Start: 09-20-2021 Non-patient / Non-visit Dr. Shai Gaston Work Phone: [facility] Start: 09-19-2021 Non-patient / Non-visit Dr. Shai Gaston Work Phone: [facility] Start: 09-18-2021 Non-patient / Non-visit Dr. Shai Gaston Work Phone: [facility] Start: 09-17-2021 Non-patient / Non-visit Dr. Shai Gaston Work Phone: [facility] Start: 09-17-2021 End: 09-20-2021 Evaluation and management of inpatient Dr. Zaida Gaston Work Phone: [facility] 3 Start: 09-14-2021 End: 09-14-2021 Emergency department patient visit Dr. Zaida Gaston Work Phone: [facility] Procedures Date Procedure Procedure Detail [...] Specimen Type: BLOOD SPEC IMEN Ordering Facility: [facility] Address: [address] [place] [address] Performed By: #### T SCR #### [facility] CLIA [id number] [address] [place], [place] [id number] [address] [place] Start: 01-27-2025 Estimated [...] dx w/collj spec when pfrmd Nia James 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 [employer] Work Phone: Start: 04-01-2024 Esophagogastroduodenoscopy transoral diagnostic Nia James 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 [employer] K[employer] Work Phone: Start: 04-01-2024 End: 04-01-2024 Gluc bld gluc mntr dev cleared fda spec home use Amara Sloan DO Work Phone: Start: 04-01-2024 Colonoscopy Lali Raman MD Work Phone: Start: 01-14-[address] Zaida Jimenez nta Work Phone: Start: 01-13-2024 Creatinine other source Alana Hedervary 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 [employer] KN[employer] Work Phone: Start: 01-13-2024 Urnls dip stick/tablet rgnt auto w/o microscopy Alana Hedervary 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 [employer] K[employer] Work Phone: Start: 07-15-2023 Creatinine other source Alana Hedervary 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 [employer] Work Phone: Start: 07-15-2023 Urnls dip stick/tablet reagent auto microscopy Alana Hedervary 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 [employer] KN[employer] Work Phone: Start: 07-13-2023 INFLUENZA VACCINE, AGE [...] Kidn ey replaced by transplant Alana Kent BEEF BONER.[facility] Work Phone: History of renal transplant [...] transplant Kidn ey transplant recipient 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 [employer] KNIFE Work Phone: History of renal transplant Kidn ey transplant recipient Xiang ROCHA-C Work Phone: History of renal transplant Kidn ey replaced by transplant Conchis Sheets RN History of renal transplant Kidn ey replaced by transplant [facility] Work Phone: History of renal transplant Kidn ey transplant recipient Delia Older 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 [employer] KNIFE Work Phone: History of renal transplant Melissa l transplant recipient Dr. Zaida Gaston MD Work Phone: History of renal transplant Melissa l transplant recipient Dr. Zaida Gaston MD Work Phone: History of renal transplant Kidn ey transplant recipient ([facility]) Zaida Gaston MD Work Phone: History of renal transplant Kidn ey transplant recipient Dr. Zaida Gaston MD Work Phone: History of renal transplant Kidn ey transplant recipient Dr. Zaida Gaston MD Work Phone: History of renal transplant Dr. Shruti Jara MD History of renal transplant Kidn ey replaced by transplant ([facility]) Mariza Vences 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 THREE KNIFE Work Phone: History of renal transplant Kidn ey replaced by transplant ([facility]) Mariza Vences 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 THREE KNIFE Work Phone: Investigation of tra nsfusion reaction [...] 04-01-2029 Screening for malignant neoplasm of colon [facility] Start: 05-02-2026 Creatinine measurement Serum Creatinine [facility] Start: 04-29-2026 Complete blood count Hemoglobin/Hematocrit [facility] Start: 04-21-2026 Creatinine measurement Serum Creatinine [facility] Start: 02-05-2026 Annual PCP Team Chronic Disease Visit Annual PCP Team Chronic Disease Visit [facility] Start: 02-05-2026 BP Controlled (<130/80) BP Controlled (<130/80) [facility] Start: 01-29-2026 Complete blood count Hemoglobin/Hematocrit [facility] Start: 01-29-2026 Creatinine measurement Serum Creatinine [facility] Start: 01-01-2026 Hepatitis B screening Urine Albumin:Creatinine Ratio [facility] Start: 01-01-2026 Hepatitis B surface antibody level LDL Cholesterol [facility] Start: 12-30-2025 Annual PCP Team Chronic Disease Visit Annual PCP Team Chronic Disease Visit [facility] Start: 12-30-2025 BP Controlled (<130/80) BP Controlled (<130/80) [facility] Start: 09-28-2025 Annual PCP Team Chronic Disease Visit Annual PCP Team Chronic Disease Visit [facility] Start: 09-28-2025 BP Controlled (<130/80) BP Controlled (<130/80) [facility] Start: 08-13-2025 End: 06-13-2026 US Kidney - bilateral and Urinary bladder US KIDNEY/BLADDER Radiology Routine Nephrolithiasis Kidney replaced by transplant (HCC) Expected: 08/13/2025, Expires: 06/13/2026 [facility] Work Phone: Comment on above: Expected: 08/13/2025, Expires: Start: 08-13-2025 End: 06-13-2026 XR Abdomen Supine and Upright XR ABDOMEN 1V SUPINE Radiology Routine Nephrolithiasis Kidney replaced by transplant (HCC) Expected: 08/13/2025, Expires: 06/13/2026 [facility] Comment on above: Expected: 08/13/2025, Expires: Start: 07-19-2025 Hemoglobin A[facility]c [facility] Start: 06-18-2025 Annual PCP Team Chronic Disease Visit Annual PCP Team Chronic Disease Visit [facility] Start: 06-07-2025 End: 06-07-2025 Patient encounter procedure 06/07/2025 3:30 PM EDT Office Visit Urology [address] [address] Bren Sutton MD [address] [place] [address] William Cameron MD Urology Comment on above: William Cameron MD Start: 05-24-2025 Urine microalbumin profile [facility] Start: 05-20-2025 End: 05-20-2025 Patient encounter procedure 05/20/2025 1:30 PM EDT Office Visit Transplant Center [address] [place] [address] Providers, [facility] [address] [place] [phone] follow up in [facility] Comment on above: follow up in [facility] Start: 05-18-2025 End: 05-18-2025 Patient encounter procedure 05/18/2025 10:00 AM EDT Office Visit Kidney Medicine [facility] [address] [address] Megan Montejo, 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 THREE KNIFE [address] [place] [address] Transplant kidney [facility]ney [facility] Comment on above: Transplant kidney Start: 05-14-2025 End: 05-14-2025 Patient encounter procedure 05/14/2025 9:00 AM EDT Office Visit Urology [address] [address] Mariza Vences, 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 THREE KNIFE [address] [place] [address] Nephrolithiasis Urology Comment on above: Nephrolithiasis Start: 05-10-2025 Influenza vaccination Influenza Vaccine (#1) [facility] Start: 05-05-2025 End: 05-05-2025 Patient encounter procedure 05/05/2025 3:00 PM EDT Office Visit Kidney [facility] [address] [address] Megan Montejo, 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 [employer] KNIFE [address] [place] [address] Transplant kidney Kidney [facility] Comment on above: Transplant kidney Start: 04-26-2025 End: 04-26-2025 Patient encounter procedure 04/26/2025 4:00 PM EDT [facility] [address] [place] [address] [place] [address] [place] [address] Stones consult ok per [facility] Comment on above: Stones consult ok per [facility] Start: 04-22-2025 End: 04-22-2025 Cysto w/ureteroscopy w/lithotripsy LASER CYSTOURETHROSCOPY W/ URETEROSCOPY AND/OR PYELOSCOPY W/ LITHOTRIPSY HOLMIUM Ureterolithiasis 04/22/2025 4:15 PM EDT [facility] Start: 04-22-2025 End: 04-22-2025 Evaluation and management of inpatient 04/22/2025 4:15 PM EDT - 04/22/2025 6:21 PM EDT Surgery Admitting [address] [place] [address] Halina Gates MD [address] [place] [address] LASER CYSTOURETHROSCOPY W/ URETEROSCOPY AND/OR PYELOSCOPY W/ LITHOTRIPSY HOLMIUM; TRANSPLANT URETER Admitting Comment on above: LASER CYSTOURETHROSCOPY W/ URETEROSCOPY AND/OR PYELOSCOPY W/ LITHOTRIPSY HOLMIUM; TRANSPLANT URETER Start: 04-18-2025 Patient discharge [facility] Start: 04-17-2025 Contact precautions [facility] Start: 04-16-2025 [facility] Start: 04-16-2025 End: 04-16-2025 [facility] Start: 04-15-2025 Consultation [facility] Start: 04-15-2025 Catheterization of vein [facility] Start: 04-15-2025 Care regimes management [facility] Start: 04-15-2025 Notification of physician [facility] Start: 04-15-2025 Assessment of risk of venous thromboembolism [facility] Start: 04-15-2025 Insertion of catheter into peripheral vein [facility] Start: 04-15-2025 Measuring intake and output [facility] Start: 04-15-2025 Providing care according to standard [facility] Start: 04-15-2025 Provision of activity privileges [facility] Start: 04-15-2025 Referral to occupational therapist [facility] Start: 04-15-2025 Referral to service [facility] Start: 04-15-2025 End: 04-15-2025 [facility] Start: 04-15-2025 Following clinical pathway protocol [facility] Start: 04-15-2025 Hospital admission, emergency, from emergency room, medical nature [facility] Start: 04-15-2025 Admission procedure [facility] Start: 04-14-2025 [facility] Start: 04-14-2025 [facility] Start: 04-14-2025 End: 04-14-2025 [facility] Start: 04-14-2025 Bacteria Detection (PCR) Bacteria Detection (PCR) [facility] Start: 04-14-2025 Bacteria identified in Blood by Culture Blood Culture [facility] Start: 04-14-2025 Blood culture [facility] Start: 04-14-2025 Urine culture [facility] Start: 04-13-2025 End: 04-13-2025 Patient encounter procedure 04/13/2025 11:20 AM EDT Office Visit Internal Medicine [place] [address] [facility] [place] [address] Zaida Gaston MD [address] [facility] [place] [address] 2 mo follow up [facility] [place] Comment on above: 2 mo follow up Start: 04-12-2025 End: 04-12-2025 Patient encounter procedure 04/12/2025 10:00 AM EDT [facility] [address] [place] [address] [facility] [address] [place] [id number] DM f/up [facility] Comment on above: DM f/up Start: 04-05-2025 End: 04-05-2025 Patient encounter procedure 04/05/2025 11:20 AM EDT Office Visit Internal Medicine [place] [address] [facility] [place] [address] Zaida Gaston MD [address] [place] [address] 2 mo follow up [facility] [place] Comment on above: 2 mo follow up Start: 04-04-2025 [facility] Start: 04-04-2025 Bacteria identified in Urine by Culture Urine Culture [facility] Start: 04-04-2025 [facility] Start: 04-02-2025 Hemoglobin A1c measurement HbA1C [facility] Start: 03-24-2025 BP Controlled (<130/80) BP Controlled (<130/80) [facility] Start: 03-18-2025 Annual PCP Team Chronic Disease Visit Annual PCP Team Chronic Disease Visit [facility] Start: 03-18-2025 BP Controlled (<130/80) BP Controlled (<130/80) [facility] Start: 03-10-2025 [facility] Start: 03-08-2025 End: 03-08-2025 Patient encounter procedure 03/08/2025 10:30 AM EDT [facility] [address] [place] [address] [facility] [address] [place] [phone] DM initial [facility] Comment on above: DM initial Start: 02-25-2025 End: 02-25-2025 Admission to same day surgery center 02/25/2025 9:40 AM EDT - 02/25/2025 11:20 AM EDT Surgery [facility] [address] [place] [address] ERP PROJECT MANAGER [address] [place] [address] PERC EXCHANGE NEPHROSTOMY CATH, INCLUDING DIAGNOSTIC NEPHROSTOGRAM/URETEROGRAM WHEN PERFORMED,IMAGING GUIDANCE AND ALL ASSOCIATED RAD S&I [facility] Comment on above: PERC EXCHANGE NEPHROSTOMY CATH, INCLUDIN G DIAGNOSTIC NEPHROSTOGRAM/URETEROGRAM WHEN PERFORMED,IMAGING GUIDANCE AND ALL ASSOCIATED RAD S&I Start: 02-25-2025 Subsequent hospital visit by physician 02/25/2025 9:40 AM EDT Hospital Encounter [facility] [address] [place] [address] ERP PROJECT MANAGER [address] [place] [address] Hydronephrosis, unspecified hydronephrosis type [N13.30] [facility] Comment on above: Hydronephrosis, unspecified hydronephros is type [N13.30] Start: 02-25-2025 End: 02-25-2025 Exchange nephrostomy catheter prq w/img gid rs&i [facility] HB6 Start: 02-15-2025 End: 02-15-2025 Patient encounter procedure 02/15/2025 9:30 AM EDT [facility] [address] [place] [address] Verna Jensen [facility] [address] [place] [address] Type 1 diabetes mellitus on insulin therapy (HCC) [E10.9] [facility] Comment on above: Type 1 diabetes mellitus on insulin ther apy (HCC) [E10.9] Start: 02-11-2025 End: 02-11-2025 Patient encounter procedure Transplant [facility] enter Comment on above: hosp d/c-per Consult (antegrade s tone management/surgical discussion) Start: 02-07-2025 [facility] Start: 02-05-2025 End: 02-05-2025 Patient encounter procedure 02/05/2025 11:40 AM EDT Office Visit Internal Medicine [place] [address] [place], [place] [id number] Zaida Gaston MD [address] [place], [place] [phone] [facility] main hosp follow up kidney stones [facility] [place] Comment on above: [facility] main hosp follow up kidney stones Start: 01-26-2025 End: 01-26-2025 [facility] Start: 01-26-2025 Bacteria identified in Urine by Culture Urine Culture [facility] Start: 01-21-2025 Annual PCP Team Chronic Disease Visit Annual PCP Team Chronic Disease Visit [facility] Start: 01-21-2025 BP Controlled (<130/80) BP Controlled (<130/80) [facility] Start: 01-12-2025 BP Controlled (<130/80) BP Controlled (<130/80) [facility] Start: 01-09-2025 Creatinine measurement Serum Creatinine [facility] Start: 01-09-2025 Hepatitis B surface antibody level LDL Cholesterol [facility] Start: 12-29-2024 End: 12-29-2024 Patient encounter procedure 12/29/2024 2:20 PM EDT Office Visit Internal Medicine [place] [address] [place], [place] [id number] Zaida Gaston MD [address] [place], [place] [phone] 3 mo follow up [facility] [place] Comment on above: 3 mo follow up Start: 12-27-2024 End: 03-28-2025 25-hydroxyvitamin D3 [Mass/volume] in Serum or Plasma VITAMIN D 25 HYDROXY Lab Routine Vitamin D deficiency Expected: 12/27/2024, Expires: 03/28/2025 [facility] Comment on above: Expected: 12/27/2024, Expires: Start: 12-27-2024 End: 03-28-2025 CBC panel - Blood by Automated count COMPLETE BLOOD COUNT Lab Routine Type 1 diabetes mellitus on insulin therapy (HCC) Expected: 12/27/2024, Expires: 03/28/2025 [facility] Work Phone: Comment on above: Expected: 12/27/2024, Expires: Start: 12-27-2024 End: 03-28-2025 Comprehensive metabolic 2000 panel - Serum or Plasma COMPREHENSIVE METABOLIC PANEL Lab Routine Type 1 diabetes mellitus on insulin therapy (HCC) Expected: 12/27/2024, Expires: 03/28/2025 [facility] Comment on above: Expected: 12/27/2024, Expires: Start: 12-27-2024 End: 03-28-2025 Lipid 1996 panel - Serum or Plasma LIPID PANEL BASIC Lab Routine Type 1 diabetes mellitus on insulin therapy (HCC) Expected: 12/27/2024, Expires: 03/28/2025 [facility] Comment on above: Expected: 12/27/2024, Expires: Start: 12-27-2024 End: 03-28-2025 Thyrotropin [Units/volume] in Serum or Plasma THYROID STIMULATING HORMONE Lab Routine Type 1 diabetes mellitus on insulin therapy (HCC) Expected: 12/27/2024, Expires: 03/28/2025 [facility] Comment on above: Expected: 12/27/2024, Expires: Start: 12-17-2024 Hemoglobin A1c measurement HbA1C [facility] Start: 11-25-2024 Annual PCP Team Chronic Disease Visit Annual PCP Team Chronic Disease Visit [facility] Start: 11-25-2024 Complete blood count Hemoglobin/Hematocrit [facility] Start: 11-25-2024 Creatinine measurement Serum Creatinine [facility] Start: 11-25-2024 Hepatitis B surface antibody level LDL Cholesterol [facility] Start: 11-19-2024 End: 11-19-2024 [facility] Start: 11-19-2024 Bacteria identified in Urine by Culture Urine Culture [facility] Start: 10-03-2024 Glaucoma screening Dilated Retinal Exam [facility] Start: 09-21-2024 End: 09-21-2024 Patient encounter procedure 09/21/2024 11:40 AM EST Office Visit Internal Medicine [place] [address] [place] [address] Zaida Gaston MD [address] [place] [address] 3 month follow up [facility] [place] Comment on above: 3 month follow up Start: 09-18-2024 Annual PCP Team Chronic Disease Visit Annual PCP Team Chronic Disease Visit [facility] Start: 09-18-2024 BP Controlled (<130/80) BP Controlled (<130/80) [facility] Start: 09-18-2024 Covid-19 Vaccine ( season) Covid-19 Vaccine ( season) [facility] Comment on above: Postponed from 05/10/2023 (Declined at t his time) Start: 09-18-2024 Hepatitis A Vaccine (1 of 2 - Risk 2-dose series) Hepatitis A Vaccine (1 of 2 - Risk 2-dose series) [facility] Comment on above: Postponed from 12/08/1987 (Declined at t his time) Start: 09-18-2024 Pneumococcal vaccination Pneumococcal Vaccine (3 of 3 - PPSV23 or PCV20) [facility] Comment on above: Postponed from 09/01/2021 (Declined at t his time) Start: 09-18-2024 Shingrix Vaccine (1 of 2) Shingrix Vaccine (1 of 2) [facility] Comment on above: Postponed from 12/08/1987 (Declined at t his time) Start: 09-11-2024 End: 12-11-2024 Microalbumin/Creatinine [Mass Ratio] in Urine ALBUMIN/CREATININE RATIO, URINE Lab Routine Type 1 diabetes mellitus on insulin therapy (HCC) Expected: 09/11/2024 (Approximate), Expires: 12/11/2024 [facility] Work Phone: Comment on above: Expected: 09/11/2024 (Approximate), Expi res: 12/11/2024 Start: 09-09-2024 Medicare Advantage Annual Wellness Visit [facility] Annual Wellness Visit [facility] Start: 09-07-2024 Creatinine measurement Serum Creatinine [facility] Start: 09-07-2024 Hepatitis B screening Urine Albumin:Creatinine Ratio [facility] Start: 09-07-2024 Hepatitis B surface antibody level LDL Cholesterol [facility] Start: 09-07-2024 End: 09-07-2024 Patient encounter procedure 09/07/2024 2:00 PM EST Office Visit Transplant Center [address] [address] Providers, [facility] [address] [phone] Follow up in [facility] 6 months [facility] Comment on above: Follow up in [facility] in 6 months Start: 08-21-2024 Diabetic foot examination Diabetic Foot Exam [facility] Start: 08-13-2024 BP Controlled (<130/80) BP Controlled (<130/80) [facility] Start: 07-19-2024 Complete blood count Hemoglobin/Hematocrit [facility] Start: 07-19-2024 Creatinine measurement Serum Creatinine [facility] Start: 07-19-2024 Hemoglobin/Hematocrit Hemoglobin/Hematocrit [facility] Start: 07-19-2024 Hepatitis B screening Urine Albumin:Creatinine Ratio [facility] Start: 07-19-2024 Serum Creatinine Serum Creatinine [facility] Start: 07-16-2024 End: 07-16-2024 Patient encounter procedure 07/16/2024 1:40 PM EST Office Visit Transplant Center [address] [address] Providers, [facility] [address] [phone] Follow up in [facility] in 6 months [facility] Center Comment on above: Follow up in [facility] in 6 months Start: 07-15-2024 BP Controlled (<130/80) BP Controlled (<130/80) [facility] Start: 07-15-2024 Hemoglobin/Hematocrit Hemoglobin/Hematocrit [facility] Start: 07-15-2024 Hepatitis B surface antibody level LDL Cholesterol [facility] Start: 07-15-2024 Serum Creatinine Serum Creatinine [facility] Start: 06-18-2024 End: 06-18-2024 Patient encounter procedure 06/18/2024 11:40 AM EDT Office Visit Internal Medicine [place] [address] [place] [address] Zaida Gaston MD [address] [place] [address] 3 month follow up [facility] [place] Comment on above: 3 month follow up Start: 05-21-2024 Annual PCP Team Chronic Disease Visit Annual PCP Team Chronic Disease Visit [facility] Start: 05-10-2024 Covid-19 Vaccine ( season) Covid-19 Vaccine ( season) [facility] Start: 05-10-2024 Covid-19 Vaccine () Covid-19 Vaccine () [facility] Start: 05-10-2024 Influenza vaccination Influenza Vaccine (#1) [facility] Start: 03-24-2024 End: 03-24-2024 Patient encounter procedure General Surg [facility] Comment on above: Colon Consult, last colon 12/04/2018, arthur swift hx of colon ca, 5 year repeat bjs Start: 03-18-2024 End: 03-18-2024 Patient encounter procedure 03/18/2024 5:40 PM EDT Office Visit [facility] [place] [address] [place] [address] 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 APRN.TRIMMER OPERATOR [employer] KNIFE [address] [place] [address] 6 wk f/u [facility] Comment on above: 6 wk f/u Start: 03-18-2024 HEMOGLOBIN/HEMATOCRIT HEMOGLOBIN/HEMATOCRIT [facility] Start: 03-18-2024 Hepatitis B screening URINE ALBUMIN:CREATININE RATIO [facility] Start: 03-18-2024 SERUM CREATININE SERUM CREATININE [facility] Start: 03-05-2024 HEMOGLOBIN/HEMATOCRIT HEMOGLOBIN/HEMATOCRIT [facility] Start: 03-05-2024 SERUM CREATININE SERUM CREATININE [facility] Start: 02-28-2024 End: 02-28-2024 Patient encounter procedure 02/28/2024 11:30 AM EDT Office Visit General Surgery [address] [place] [address] Karl Kaufman MD [address] [phone] Colon Consult, last colon 12/04/2018, family hx of colon ca, 5 year repeat bjs General Surgery Comment on above: Colon Consult, last colon 12/04/2018, fam jeniffer hx of colon ca, 5 year repeat bjs Start: 02-26-2024 ANNUAL PCP TEAM CHRONIC DISEASE VISIT ANNUAL PCP TEAM CHRONIC DISEASE VISIT [facility] Start: 02-26-2024 Hemoglobin A1c measurement HbA1C [facility] Start: 02-04-2024 End: 02-04-2024 Patient encounter procedure 02/04/2024 12:00 PM EDT Office Visit General Surgery [address] [place], [place] [id number] Karl Kaufman MD [address] [phone] 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]; [...] EDT Office Visit [facility] [place] [address] [place], [place] [phone] 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 APRN.TRIMMER OPERATOR [employer] [address] [place], [place] [phone] 3 month follow up [facility] [place] Comment on above: 3 month follow up Start: 01-03-2024 HEMOGLOBIN/HEMATOCRIT HEMOGLOBIN/HEMATOCRIT [facility] Start: 01-03-2024 SERUM CREATININE SERUM CREATININE [facility] Start: 12-29-2023 HEMOGLOBIN/HEMATOCRIT HEMOGLOBIN/HEMATOCRIT [facility] Start: 12-29-2023 Hepatitis B surface antibody level LDL CHOLESTEROL [facility] Start: 12-29-2023 SERUM CREATININE SERUM CREATININE [facility] Start: 12-08-2023 Prostate specific antigen measurement Prostate Cancer Screening Discussion [facility] Start: 12-05-2023 Colonoscopy COLONOSCOPY [facility] Start: 12-05-2023 COLORECTAL CANCER SCREENING COLORECTAL CANCER SCREENING [facility] Start: 12-05-2023 Screening for malignant neoplasm of colon [facility] Start: 11-26-2023 End: 02-25-2024 Hemoglobin A1c in Blood [facility] Work Phone: Comment on above: Expected: 11/26/2023, Expires: 4 Start: 11-26-2023 End: 02-25-2024 Thyrotropin [Units/volume] in Serum or Plasma [facility] Work Phone: Comment on above: Expected: 11/26/2023, Expires: 4 Start: 11-24-2023 ANNUAL PCP TEAM CHRONIC DISEASE VISIT ANNUAL PCP TEAM CHRONIC DISEASE VISIT [facility] Start: 11-24-2023 BP CONTROLLED (<130/80) BP CONTROLLED (<130/80) [facility] Start: 10-25-2023 Hemoglobin A1c measurement HbA1C [facility] Start: 10-13-2023 HEMOGLOBIN/HEMATOCRIT HEMOGLOBIN/HEMATOCRIT [facility] Start: 10-13-2023 Hepatitis B surface antibody level LDL CHOLESTEROL [facility] Start: 10-13-2023 SERUM CREATININE SERUM CREATININE [facility] Start: 10-04-2023 BP CONTROLLED (<130/80) BP CONTROLLED (<130/80) [facility] Start: 09-15-2023 HEMOGLOBIN/HEMATOCRIT HEMOGLOBIN/HEMATOCRIT [facility] Start: 09-15-2023 Hepatitis B screening URINE ALBUMIN:CREATININE RATIO [facility] Start: 09-15-2023 SERUM CREATININE SERUM CREATININE [facility] Start: 08-25-2023 ANNUAL PCP TEAM CHRONIC DISEASE VISIT ANNUAL PCP TEAM CHRONIC DISEASE VISIT [facility] Start: 08-04-2023 HEMOGLOBIN/HEMATOCRIT HEMOGLOBIN/HEMATOCRIT [facility] Start: 08-04-2023 SERUM CREATININE SERUM CREATININE [facility] Start: 08-03-2023 BP CONTROLLED (<130/80) BP CONTROLLED (<130/80) [facility] Start: 07-21-2023 End: 10-20-2023 CBC W Auto Differential panel - Blood CBC + DIFF Lab STAT Kidney replaced by transplant Expected: 07/21/2023 (Approximate), Expires: 10/20/2023 [facility] Work Phone: Comment on above: Expected: 07/21/2023 (Approximate), Expi res: 10/20/2023 Start: 07-21-2023 End: 10-20-2023 Comprehensive metabolic 2000 panel - Serum or Plasma COMP METABOLIC PANEL Lab STAT Kidney replaced by transplant Expected: 07/21/2023 (Approximate), Expires: 10/20/2023 [facility] Work Phone: Comment on above: Expected: 07/21/2023 (Approximate), Expi res: 10/20/2023 Start: 07-15-2023 End: 10-14-2023 ALLOSURE KIDNEY [facility] Work Phone: Comment on above: Expected: 07/15/2023, Expires: 4 Start: 07-15-2023 End: 07-14-2024 KID/URIAS REC POST TX DSA [facility] Work Phone: Comment on above: Expected: 07/15/2023, Expires: 4 Start: 07-13-2023 ANNUAL PCP TEAM CHRONIC DISEASE VISIT ANNUAL PCP TEAM CHRONIC DISEASE VISIT [facility] Start: 07-05-2023 BP CONTROLLED (<130/80) BP CONTROLLED (<130/80) [facility] Start: 07-02-2023 HEMOGLOBIN/HEMATOCRIT HEMOGLOBIN/HEMATOCRIT [facility] Start: 07-02-2023 SERUM CREATININE SERUM CREATININE [facility] Start: 06-08-2023 HEMOGLOBIN/HEMATOCRIT HEMOGLOBIN/HEMATOCRIT [facility] Start: 06-08-2023 SERUM CREATININE SERUM CREATININE [facility] Start: 05-10-2023 Covid-19 Vaccine ( season) Covid-19 Vaccine () [facility] Start: 05-10-2023 Influenza vaccination [facility] Start: 04-10-2023 ANNUAL PCP TEAM CHRONIC DISEASE VISIT ANNUAL PCP TEAM CHRONIC DISEASE VISIT [facility] Start: 04-10-2023 BP CONTROLLED (<130/80) BP CONTROLLED (<130/80) [facility] Start: 03-18-2023 End: 05-18-2023 ALLOSURE KIDNEY ALLOSURE KIDNEY Lab Routine Encounter for aftercare following kidney transplant Expected: 03/18/2023, Expires: 05/18/2023 [facility] Work Phone: Comment on above: Expected: 03/18/2023, Expires: 3 Start: 03-18-2023 End: 03-13-2024 KID/URIAS REC POST TX DSA KID/URIAS REC POST TX DSA ALLOGEN Routine Encounter for aftercare following kidney transplant Expected: 03/18/2023, Expires: 03/13/2024 [facility] Work Phone: Comment on above: Expected: 03/18/2023, Expires: 4 Start: 03-14-2023 [facility] Start: 03-03-2023 HEMOGLOBIN/HEMATOCRIT HEMOGLOBIN/HEMATOCRIT [facility] Start: 03-03-2023 Hepatitis B surface antibody level LDL CHOLESTEROL [facility] Start: 03-03-2023 SERUM CREATININE SERUM CREATININE [facility] Start: 02-13-2023 HEMOGLOBIN/HEMATOCRIT HEMOGLOBIN/HEMATOCRIT [facility] Start: 02-13-2023 Hepatitis B surface antibody level LDL CHOLESTEROL [facility] Start: 02-13-2023 SERUM CREATININE SERUM CREATININE [facility] Start: 02-09-2023 Glaucoma screening Dilated Retinal Exam [facility] Start: 02-09-2023 Hepatitis C antibody, confirmatory test DILATED RETINAL EXAM [facility] Start: 01-12-2023 HEMOGLOBIN/HEMATOCRIT HEMOGLOBIN/HEMATOCRIT [facility] Start: 01-12-2023 Hepatitis B surface antibody level LDL CHOLESTEROL [facility] Start: 01-12-2023 SERUM CREATININE SERUM CREATININE [facility] Start: 01-10-2023 Hemoglobin A1c measurement HbA1C [facility] Start: 01-10-2023 Hemoglobin A1c/Hemoglobin.total in Blood HBA1C [facility] Start: 01-02-2023 End: 03-04-2023 Basic metabolic 2000 panel - Serum or Plasma BASIC METABOLIC PNL Lab STAT Kidney replaced by transplant Expected: 01/02/2023 (Approximate), Expires: 03/04/2023 [facility] Work Phone: Comment on above: Expected: 01/02/2023 (Approximate), Expi res: 03/04/2023 Start: 01-02-2023 End: 03-04-2023 Tacrolimus [Mass/volume] in Blood TACROLIMUS/FK-506 BL Lab STAT Kidney replaced by transplant Expected: 01/02/2023 (Approximate), Expires: 03/04/2023 [facility] Work Phone: Comment on above: Expected: 01/02/2023 (Approximate), Expi res: 03/04/2023 Start: 12-31-2022 End: 03-02-2023 ALLOSURE KIDNEY ALLOSURE KIDNEY Lab Routine Kidney replaced by transplant Expected: 12/31/2022, Expires: 03/02/2023 [facility] Work Phone: Comment on above: Expected: 12/31/2022, Expires: 3 Start: 12-31-2022 End: 12-31-2023 KID/URIAS REC POST TX DSA KID/URIAS REC POST TX DSA ALLOGEN Routine Kidney replaced by transplant Expected: 12/31/2022, Expires: 12/31/2023 [facility] Work Phone: Comment on above: Expected: 12/31/2022, Expires: 4 Start: 12-31-2022 End: 03-02-2023 Protein/Creatinine [Mass Ratio] in Urine PROTEIN CREATININE RATIO Lab Routine Kidney replaced by transplant Expected: 12/31/2022, Expires: 03/02/2023 [facility] Work Phone: Comment on above: Expected: 12/31/2022, Expires: 3 Start: 12-25-2022 HEMOGLOBIN/HEMATOCRIT HEMOGLOBIN/HEMATOCRIT [facility] Start: 12-25-2022 Hepatitis B surface antibody level LDL CHOLESTEROL [facility] Start: 12-25-2022 SERUM CREATININE SERUM CREATININE [facility] Start: 11-24-2022 HEMOGLOBIN/HEMATOCRIT HEMOGLOBIN/HEMATOCRIT [facility] Start: 11-24-2022 SERUM CREATININE SERUM CREATININE [facility] Start: 11-17-2022 Hepatitis B surface antibody level LDL CHOLESTEROL [facility] Start: 11-05-2022 Patient discharge [facility] Start: 11-02-2022 Wound care [facility] Start: 11-01-2022 [facility] Start: 11-01-2022 Application of intermittent pneumatic compression device [facility] Start: 11-01-2022 Following clinical pathway protocol [facility] Start: 11-01-2022 Assessment of risk of venous thromboembolism [facility] Start: 11-01-2022 Care regimes management [facility] Start: 11-01-2022 Consultation [facility] Start: 11-01-2022 Consultation for treatment [facility] Start: 11-01-2022 Insertion of catheter into peripheral vein [facility] Start: 11-01-2022 Providing care according to standard [facility] Start: 11-01-2022 Referral to service [facility] Start: 11-01-2022 [facility] Start: 11-01-2022 Admission procedure [facility] Start: 11-01-2022 Amputation of toe Amputation Toe/Foot (Left) [facility] Start: 11-01-2022 Verification routine [facility] Start: 11-01-2022 Admission procedure [facility] Start: 11-01-2022 Fluoroscopic guidance O.R. Fluoro for C-Arm [facility] Start: 11-01-2022 Radiography of foot Foot 2 Views [facility] Start: 11-01-2022 Electrocardiographic procedure [facility] Start: 11-01-2022 End: 11-01-2022 Blood culture [facility] Start: 11-01-2022 End: 11-02-2022 [facility] Start: 10-13-2022 ANNUAL PCP TEAM CHRONIC DISEASE VISIT ANNUAL PCP TEAM CHRONIC DISEASE VISIT [facility] Start: 10-13-2022 End: 12-13-2022 Hemoglobin A1c in Blood HGB A1C Lab Routine Type 1 diabetes mellitus on insulin therapy (HCC) Expected: 10/13/2022, Expires: 12/13/2022 [facility] Work Phone: Comment on above: Expected: 10/13/2022, Expires: Start: 10-13-2022 Hemoglobin A1c/Hemoglobin.total in Blood HBA1C [facility] Start: 08-25-2022 End: 10-25-2022 ALBUMIN/CREAT RATIO RND UR ALBUMIN/CREAT RATIO RND UR Lab Routine Diabetic polyneuropathy associated with type 2 diabetes mellitus (HCC) Expected: 08/25/2022, Expires: 10/25/2022 [facility] Work Phone: Comment on above: Expected: 08/25/2022, Expires: Start: 07-11-2022 Hepatitis B screening URINE ALBUMIN:CREATININE RATIO [facility] Start: 07-07-2022 3 comp foot exam completed DIABETIC FOOT EXAM [facility] Start: 07-07-2022 Diabetic foot examination Diabetic Foot Exam [facility] Start: 07-07-2022 PNEUMOCOCCAL (3 - PPSV23 if available, else PCV20) PNEUMOCOCCAL (3 - PPSV23 if available, else PCV20) [facility] Start: 07-07-2022 PNEUMOCOCCAL (3 - PPSV23 or PCV20) PNEUMOCOCCAL (3 - PPSV23 or PCV20) [facility] Start: 07-07-2022 Pneumococcal vaccination Pneumococcal Vaccine (3 - PPSV23 or PCV20) [facility] Start: 05-10-2022 Influenza vaccination INFLUENZA (#1) [facility] Start: 04-03-2022 Blood chemistry [facility] Work Phone: Start: 04-02-2022 Blood chemistry [facility] Work Phone: Start: 04-01-2022 Blood chemistry [facility] Work Phone: Start: 03-31-2022 Blood chemistry [facility] Work Phone: Start: 03-30-2022 Blood chemistry [facility] Work Phone: Start: 03-29-2022 Blood chemistry [facility] Work Phone: Start: 03-28-2022 Patient discharge [facility] Work Phone: Start: 03-27-2022 Referral to service [facility] Work Phone: Start: 03-26-2022 Blood culture [facility] Work Phone: Start: 03-26-2022 Vacuum assisted skin closure [facility] Work Phone: Start: 03-25-2022 [facility] Work Phone: Start: 03-24-2022 Referral to occupational therapist [facility] Work Phone: Start: 03-24-2022 Referral to service [facility] Work Phone: Start: 03-24-2022 Provision of activity privileges [facility] Work Phone: Start: 03-24-2022 [facility] Work Phone: Start: 03-24-2022 Care planning and problem solving actions [facility] Work Phone: Start: 03-24-2022 Following clinical pathway protocol [facility] Work Phone: Start: 03-24-2022 Assessment of risk of venous thromboembolism [facility] Work Phone: Start: 03-24-2022 Care regimes management [facility] Work Phone: Start: 03-24-2022 Consultation [facility] Work Phone: Start: 03-24-2022 Consultation for treatment [facility] Work Phone: Start: 03-24-2022 Documentation procedure [facility] Work Phone: Start: 03-24-2022 Fall prevention [facility] Work Phone: Start: 03-24-2022 Incentive spirometry [facility] Work Phone: Start: 03-24-2022 Insertion of catheter into peripheral vein [facility] Work Phone: Start: 03-24-2022 Introduction of urinary catheter [facility] Work Phone: Start: 03-24-2022 Measuring intake and output [facility] Work Phone: Start: 03-24-2022 Patient referral to dietitian [facility] Work Phone: Start: 03-24-2022 Providing care according to standard [facility] Work Phone: Start: 03-24-2022 Provision of activity privileges [facility] Work Phone: Start: 03-24-2022 Referral to scorer single [facility] Work Phone: Start: 03-24-2022 Referral to plumber and tinner [facility] Work Phone: Start: 03-24-2022 Referral to service [facility] Work Phone: Start: 03-24-2022 Skin care [facility] Work Phone: Start: 03-24-2022 Vital signs measurements [facility] Work Phone: Start: 03-24-2022 [facility] Work Phone: Start: 03-24-2022 Verification routine [facility] Work Phone: Start: 03-24-2022 Admission procedure [facility] Work Phone: Start: 03-24-2022 Bacterial nucleic acid assay [facility] Work Phone: Start: 03-24-2022 End: 03-24-2022 [facility] Work Phone: Start: 03-24-2022 End: 03-24-2022 Blood culture [facility] Work Phone: Start: 03-24-2022 Patient referral to dietitian [facility] Work Phone: Start: 03-08-2022 End: 05-08-2022 Hemoglobin A1c in Blood HGB A1C Lab Routine Kidney replaced by transplant Expected: 03/08/2022, Expires: 05/08/2022 [facility] Work Phone: Comment on above: Expected: 03/08/2022, Expires: 2 Start: 12-20-2021 End: 02-19-2022 CLINICAL TRIAL DRAW CLINICAL TRIAL DRAW Lab Routine Research subject Expected: 12/20/2021, Expires: 02/19/2022 [facility] Work Phone: Comment on above: Expected: 12/20/2021, Expires: 2 Start: 10-20-2021 Hepatitis C antibody, confirmatory test DILATED RETINAL EXAM [facility] Start: 10-11-2021 Hemoglobin A1c/Hemoglobin.total in Blood HBA1C [facility] Start: 09-14-2021 Emergency department visit high/urgent severity EMERGENCY DEPT VISIT [facility] Work Phone: Start: 09-14-2021 Iv infusion hydration each additional hour HYDRATE IV INFUSION ADD-ON [facility] Work Phone: Start: 09-14-2021 Iv infusion hydration initial 31 min-1 hour HYDRATION IV INFUSION INIT [facility] Work Phone: Start: 09-01-2021 Pneumococcal vaccination Pneumococcal Vaccine (3 of 3 - PPSV23 or PCV20) [facility] Start: 09-01-2021 Pneumococcal Vaccine: 50+ (3 of 3 - PCV20 or PCV21) Pneumococcal Vaccine: 50+ (3 of 3 - PCV20 or PCV21) [facility] Start: 09-01-2021 Pneumococcal Vaccine: 50+ (3 of 3 - PPSV23, PCV20 or PCV21) Pneumococcal Vaccine: 50+ (3 of 3 - PPSV23, PCV20 or PCV21) [facility] Start: 03-22-2021 COVID-19 VACCINE (4 - Booster) COVID-19 VACCINE (4 - Booster) [facility] Start: 03-15-2021 COVID-19 VACCINE (4 - Booster) COVID-19 VACCINE (4 - Booster) [facility] Start: 02-15-2021 COVID-19 VACCINE (4 - Booster for Moderna series) COVID-19 VACCINE (4 - Booster for Moderna series) [facility] Start: 02-15-2021 COVID-19 VACCINE (4 - Booster) COVID-19 VACCINE (4 - Booster) [facility] Start: 02-15-2021 Covid-19 Vaccine (4 - Moderna risk series) Covid-19 Vaccine (4 - Moderna risk series) [facility] Start: 01-18-2021 Covid-19 Vaccine (3 - Moderna risk series) Covid-19 Vaccine (3 - Moderna risk series) [facility] Start: 2018 SHINGRIX VACCINE (1 of 2) SHINGRIX VACCINE (1 of 2) [facility] Start: 11-07-2017 TWO PNEUMOVAX 5 YEARS APART PRIOR TO AGE 65 (#2) TWO PNEUMOVAX 5 YEARS APART PRIOR TO AGE 65 (#2) [facility] Start: 2013 COLOGUARD (FIT-DNA) COLOGUARD (FIT-DNA) [facility] Start: [address] COLONOGRAPHY [facility] Start: 2013 FECAL OCCULT BLOOD FECAL OCCULT BLOOD [facility] Start: 2013 Prostate specific antigen measurement Prostate Cancer Screening Discussion [facility] Start: 2013 Screening for malignant neoplasm of colon [facility] Start: 2013 SIGMOIDOSCOPY SIGMOIDOSCOPY [facility] Start: 12-08-1987 HEPATITIS A (1 of 2 - Risk 2-dose series) HEPATITIS A (1 of 2 - Risk 2-dose series) [facility] Start: 12-08-1987 Hepatitis A Vaccine (1 of 2 - Risk 2-dose series) Hepatitis A Vaccine (1 of 2 - Risk 2-dose series) [facility] Start: 12-08-1987 SHINGRIX VACCINE (1 of 2) SHINGRIX VACCINE (1 of 2) [facility] Start: 1986 Anxiety Screening Anxiety Screening [facility] Start: 1986 BP CONTROLLED (<130/80) BP CONTROLLED (<130/80) [facility] Start: 1969 HEPATITIS A (1 of 2 - Risk 2-dose series) HEPATITIS A (1 of 2 - Risk 2-dose series) [facility] End: 07-13-2024 25-hydroxyvitamin D3 [Mass/volume] in Serum or Plasma VITAMIN D 25 HYDROXY Lab Routine Kidney replaced by transplant Vitamin D deficiency Every 3 months for 100 Occurrences starting 07/15/2023 until 07/13/2024, 1 completed [facility] Work Phone: Comment on above: Every 3 months for 100 Occurrences start ing 07/15/2023 until 07/13/2024, 1 completed End: 07-25-2024 25-hydroxyvitamin D3 [Mass/volume] in Serum or Plasma VITAMIN D 25 HYDROXY Lab Routine Kidney replaced by transplant High risk medication use Vitamin D deficiency Every 3 months for 50 Occurrences starting 07/25/2023 until 07/25/2024 [facility] Work Phone: Comment on above: Every 3 months for 50 Occurrences starti ng 07/25/2023 until 07/25/2024 Acid fast bacilli culture [facility] Work Phone: Acid fast bacilli culture [facility] End: 03-13-2024 ALBUMIN/CREAT RATIO RND UR ALBUMIN/CREAT RATIO RND UR Lab Routine Encounter for aftercare following kidney transplant Once per week for 4 Occurrences starting 03/14/2023 until 03/13/2024 [facility] Work Phone: Comment on above: Once per week for 4 Occurrences starting 03/14/2023 until 03/13/2024 Anaerobic microbial culture Anaerobic [facility] Work Phone: Anaerobic microbial culture Anaerobic [facility] Bacteria identified in Blood by Culture Blood Culture [facility] Bacteria identified in Blood by Culture Blood Culture [facility] Bacteria identified in Urine by Culture URINE CULTURE Microbiology Routine Kidney replaced by transplant Ordered: 12/31/2022 [facility] Work Phone: Comment on above: Ordered: 12/31/2022 Bacterial nucleic acid assay [facility] Work Phone: Bilirubin measurement, urine [facility] End: 06-08-2023 BK VIRUS PCR,QUANT,P BK VIRUS PCR,QUANT,P Lab Routine Kidney replaced by transplant Once per month for 100 Occurrences starting 06/08/2022 until 06/08/2023, 2 completed [facility] Work Phone: Comment on above: Once per month for 100 Occurrences start ing 06/08/2022 until 06/08/2023, 2 completed End: 07-15-2024 BK VIRUS PCR,QUANT,P BK VIRUS PCR,QUANT,P Lab Routine Kidney replaced by transplant Every 3 months for 100 Occurrences starting 07/15/2023 until 07/15/2024, 2 completed [facility] Work Phone: Comment on above: Every 3 months for 100 Occurrences start ing 07/15/2023 until 07/15/2024, 2 completed End: 07-25-2024 BK VIRUS PCR,QUANT,P BK VIRUS PCR,QUANT,P Lab Routine Kidney replaced by transplant High risk medication use Every 3 months for 50 Occurrences starting 07/25/2023 until 07/25/2024 [facility] Work Phone: Comment on above: Every 3 months for 50 Occurrences starti ng 07/25/2023 until 07/25/2024 Blood culture [facility] Work Phone: C reactive protein [Mass/volume] in Serum or Plasma [facility] Work Phone: End: 06-08-2023 CBC W Auto Differential panel - Blood CBC + DIFF Lab Routine Kidney replaced by transplant Once per month for 100 Occurrences starting 06/08/2022 until 06/08/2023, 1 completed [facility] Work Phone: Comment on above: Once per month for 100 Occurrences start ing 06/08/2022 until 06/08/2023, 1 completed End: 03-13-2024 CBC W Auto Differential panel - Blood CBC + DIFF Lab Routine Encounter for aftercare following kidney transplant Once per week for 4 Occurrences starting 03/14/2023 until 03/13/2024 [facility] Work Phone: Comment on above: Once per week for 4 Occurrences starting 03/14/2023 until 03/13/2024 End: 07-15-2024 CBC W Auto Differential panel - Blood CBC + DIFF Lab Routine Kidney replaced by transplant Once per month for 100 Occurrences starting 07/15/2023 until 07/15/2024 [facility] Work Phone: Comment on above: Once per month for 100 Occurrences start ing 07/15/2023 until 07/15/2024 End: 07-25-2024 CBC W Auto Differential panel - Blood CBC + DIFF Lab Routine Kidney replaced by transplant High risk medication use Once per month for 99 Occurrences starting 07/25/2023 until 07/25/2024 [facility] Work Phone: Comment on above: Once per month for 99 Occurrences starti ng 07/25/2023 until 07/25/2024 Clostridioides diffi cile toxin genes [Presence] in Stool by CARMEN with probe detection C. DIFFICILE PCR Lab Routine Diarrhea, unspecified type Ordered: 11/26/2023 [facility] Work Phone: Comment on above: Ordered: 11/26/2023 End: 06-08-2023 CMV DNA DETECTION AND QUANT CMV DNA DETECTION AND QUANT Lab Routine Kidney replaced by transplant Once per month for 100 Occurrences starting 06/08/2022 until 06/08/2023, 1 completed [facility] Work Phone: Comment on above: Once per month for 100 Occurrences start ing 06/08/2022 until 06/08/2023, 1 completed End: 06-08-2023 Comprehensive metabolic 2000 panel - Serum or Plasma COMP METABOLIC PANEL Lab Routine Kidney replaced by transplant Once per month for 100 Occurrences starting 06/08/2022 until 06/08/2023, 1 completed [facility] Work Phone: Comment on above: Once per month for 100 Occurrences start ing 06/08/2022 until 06/08/2023, 1 completed End: 03-13-2024 Comprehensive metabolic 2000 panel - Serum or Plasma COMP METABOLIC PANEL Lab Routine Encounter for aftercare following kidney transplant Once per week for 4 Occurrences starting 03/14/2023 until 03/13/2024 [facility] Work Phone: Comment on above: Once per week for 4 Occurrences starting 03/14/2023 until 03/13/2024 End: 07-15-2024 Comprehensive metabolic 2000 panel - Serum or Plasma COMP METABOLIC PANEL Lab Routine Kidney replaced by transplant Once per month for 100 Occurrences starting 07/15/2023 until 07/15/2024 [facility] Work Phone: Comment on above: Once per month for 100 Occurrences start ing 07/15/2023 until 07/15/2024 End: 07-25-2024 Comprehensive metabolic 2000 panel - Serum or Plasma COMP METABOLIC PANEL Lab Routine Kidney replaced by transplant High risk medication use Once per month for 99 Occurrences starting 07/25/2023 until 07/25/2024 [facility] Work Phone: Comment on above: Once per month for 99 Occurrences starti ng 07/25/2023 until 07/25/2024 End: 03-24-2025 EGD DIAGNOSTIC EGD DIAGNOSTIC Endoscopy Routine Diarrhea, unspecified type 1 Occurrences starting 03/24/2024 until 03/24/2025 [facility] Work Phone: Comment on above: 1 Occurrences starting 03/24/2024 until 03/24/2025 ENTERIC BACTERIAL PA KATHERIN BY PCR ENTERIC BACTERIAL PANEL BY PCR Lab Routine Diarrhea, unspecified type Ordered: 11/26/2023 [facility] Work Phone: Comment on above: Ordered: 11/26/2023 Erythrocyte sediment ation rate [facility] Work Phone: FECAL LACTOFERRIN/LEUKOCYTES FEC AL LACTOFERRIN/LEUKOCYTES Lab Routine Diarrhea, unspecified type Ordered: 11/26/2023 [facility] Work Phone: Comment on above: Ordered: 11/26/2023 End: 03-24-2025 Flexible sigmoidoscopy study COLONOSCOPY DIAGNOSTIC Endoscopy Routine Diarrhea, unspecified type 1 Occurrences starting 03/24/2024 until 03/24/2025 [facility] Comment on above: 1 Occurrences starting 03/24/2024 until 03/24/2025 Fungal Culture Fungal Culture [facility] Work Phone: Fungal Smear Fungal Smear [facility] Work Phone: Giardia lamblia+Cryptosporidium sp Ag [Presence] in Stool by Immunoassay CRYPTOSPORIDIUM AND GIARDIA ANTIGENS BY EIA Microbiology Routine Diarrhea, unspecified type Ordered: 11/26/2023 [facility] Work Phone: Comment on above: Ordered: 11/26/2023 Hemoglobin [Presence ] in Urine [facility] INFLUENZA VACCINE QUADRIVALENT 6 MO - 64 YRS IM INFLUENZA VACCINE QUADRIVALENT 6 MO - 64 YRS IM Immunization/Injection Routine Need for influenza vaccination Ordered: 07/13/2022 [facility] Work Phone: Comment on above: Ordered: 07/13/2022 End: 07-30-2024 KID/URIAS REC POST TX DSA KID/URIAS REC POST TX DSA ALLOGEN Routine Kidney replaced by transplant Every 3 months for 4 Occurrences starting 07/31/2023 until 07/30/2024 [facility] Work Phone: Comment on above: Every 3 months for 4 Occurrences startin g 07/31/2023 until 07/30/2024 End: 09-24-2023 Lipid 1996 panel - Serum or Plasma LIPID PANEL BASIC Lab Routine Kidney replaced by transplant Every 6 months for 2 Occurrences starting 09/24/2022 until 09/24/2023 [facility] Work Phone: Comment on above: Every 6 months for 2 Occurrences startin g 09/24/2022 until 09/24/2023 End: 07-25-2024 Lipid 1996 panel - Serum or Plasma LIPID PANEL BASIC Lab Routine Kidney replaced by transplant High risk medication use Every 3 months for 50 Occurrences starting 07/25/2023 until 07/25/2024 [facility] Work Phone: Comment on above: Every 3 months for 50 Occurrences starti ng 07/25/2023 until 07/25/2024 Magnesium [Mass/volu me] in Serum or Plasma [facility] Work Phone: End: 06-08-2023 Magnesium [Mass/volume] in Serum or Plasma MAGNESIUM BLD Lab Routine Kidney replaced by transplant Once per month for 100 Occurrences starting 06/08/2022 until 06/08/2023, 1 completed [facility] Work Phone: Comment on above: Once per month for 100 Occurrences start ing 06/08/2022 until 06/08/2023, 1 completed End: 03-13-2024 Magnesium [Mass/volume] in Serum or Plasma MAGNESIUM BLD Lab Routine Encounter for aftercare following kidney transplant Once per week for 4 Occurrences starting 03/14/2023 until 03/13/2024 [facility] Work Phone: Comment on above: Once per week for 4 Occurrences starting 03/14/2023 until 03/13/2024 End: 07-15-2024 Magnesium [Mass/volume] in Serum or Plasma MAGNESIUM BLD Lab Routine Kidney replaced by transplant Once per month for 100 Occurrences starting 07/15/2023 until 07/15/2024 [facility] Work Phone: Comment on above: Once per month for 100 Occurrences start ing 07/15/2023 until 07/15/2024 End: 07-25-2024 Magnesium [Mass/volume] in Serum or Plasma MAGNESIUM BLD Lab Routine Kidney replaced by transplant High risk medication use Once per month for 99 Occurrences starting 07/25/2023 until 07/25/2024 [facility] Work Phone: Comment on above: Once per month for 99 Occurrences starti ng 07/25/2023 until 07/25/2024 Measurement of keton es in urine using dipstick [facility] Microorganism identi fied in Unspecified specimen by Culture [facility] Microscopic observat ion [Identifier] in Unspecified specimen by Gram stain Gram Stain [facility] Work Phone: Microscopic urinalysis [facility] Mycobacterium sp belkys ntified in Unspecified specimen by Organism specific culture [facility] Work Phone: Mycobacterium sp belkys ntified in Unspecified specimen by Organism specific culture [facility] End: 07-25-2024 Parathyrin.intact [Mass/volume] in Serum or Plasma PTH INTACT BLD Lab Routine Kidney replaced by transplant High risk medication use Vitamin D deficiency Every 3 months for 50 Occurrences starting 07/25/2023 until 07/25/2024 [facility] Work Phone: Comment on above: Every 3 months for 50 Occurrences starti ng 07/25/2023 until 07/25/2024 Patient Education [facility] Work Phone: Patient referral [facility] Work Phone: pH of Urine [facility] End: 06-08-2023 Phosphate [Mass/volume] in Serum or Plasma PHOSPHORUS INORGANIC Lab Routine Kidney replaced by transplant Once per month for 100 Occurrences starting 06/08/2022 until 06/08/2023, 1 completed [facility] Work Phone: Comment on above: Once per month for 100 Occurrences start ing 06/08/2022 until 06/08/2023, 1 completed End: 03-13-2024 Phosphate [Mass/volume] in Serum or Plasma PHOSPHORUS INORGANIC Lab Routine Encounter for aftercare following kidney transplant Once per week for 4 Occurrences starting 03/14/2023 until 03/13/2024 [facility] Work Phone: Comment on above: Once per week for 4 Occurrences starting 03/14/2023 until 03/13/2024 End: 07-15-2024 Phosphate [Mass/volume] in Serum or Plasma PHOSPHORUS INORGANIC Lab Routine Kidney replaced by transplant Once per month for 100 Occurrences starting 07/15/2023 until 07/15/2024 [facility] Work Phone: Comment on above: Once per month for 100 Occurrences start ing 07/15/2023 until 07/15/2024 End: 07-25-2024 Phosphate [Mass/volume] in Serum or Plasma PHOSPHORUS INORGANIC Lab Routine Kidney replaced by transplant High risk medication use Once per month for 99 Occurrences starting 07/25/2023 until 07/25/2024 [facility] Work Phone: Comment on above: Once per month for 99 Occurrences starti ng 07/25/2023 until 07/25/2024 Protein/Creatinine [ Mass Ratio] in Urine [facility] Work Phone: Protein/Creatinine [ Mass Ratio] in Urine PROTEIN CREATININE RATIO Lab Routine Kidney replaced by transplant 03/08/2022 4:08 PM EDT [facility] Work Phone: End: 02-26-2024 PVR LEG W/EXC ROLY VAS LAB PVR LEG W/EXC ROLY VAS LAB Vascular Lab Routine Left leg claudication (HCC) 1 Occurrences starting 02/25/2023 until 02/26/2024 [facility] Work Phone: Comment on above: 1 Occurrences starting 02/25/2023 until 02/26/2024 Specific gravity of Urine [facility] SURGICAL PATHOLOGY [facility] Work Phone: Comment on above: Release Upon Ordering for 1 Occurrences starting 04/01/2024, 1 completed Tacrolimus [Mass/vol ume] in Blood [facility] Work Phone: End: 06-08-2023 Tacrolimus [Mass/volume] in Blood TACROLIMUS/FK-506 BL Lab Routine Kidney replaced by transplant Once per month for 100 Occurrences starting 06/08/2022 until 06/08/2023, 1 completed [facility] Work Phone: Comment on above: Once per month for 100 Occurrences start ing 06/08/2022 until 06/08/2023, 1 completed End: 03-13-2024 Tacrolimus [Mass/volume] in Blood TACROLIMUS/FK-506 BL Lab Routine Encounter for aftercare following kidney transplant Once per week for 4 Occurrences starting 03/14/2023 until 03/13/2024 [facility] Work Phone: Comment on above: Once per week for 4 Occurrences starting 03/14/2023 until 03/13/2024 End: 07-15-2024 Tacrolimus [Mass/volume] in Blood TACROLIMUS/FK-506 BL Lab Routine Kidney replaced by transplant Once per month for 100 Occurrences starting 07/15/2023 until 07/15/2024 [facility] Work Phone: Comment on above: Once per month for 100 Occurrences start ing 07/15/2023 until 07/15/2024 End: 07-25-2024 Tacrolimus [Mass/volume] in Blood TACROLIMUS/FK-506 BL Lab Routine Kidney replaced by transplant High risk medication use Once per month for 99 Occurrences starting 07/25/2023 until 07/25/2024 [facility] Work Phone: Comment on above: Once per month for 99 Occurrences starti ng 07/25/2023 until 07/25/2024 UA DIP, URINE (POC) UA DIP, URIN E (POC) Lab Routine Screening for genitourinary condition 1 Occurrences starting 05/05/2025 [facility] Work Phone: Comment on above: 1 Occurrences starting 05/05/2025 End: 03-13-2024 Urinalysis complete panel - Urine URINALYSIS WITH MICROSCOPIC, REFLEX CULTURE Lab Routine Encounter for aftercare following kidney transplant Once per week for 4 Occurrences starting 03/14/2023 until 03/13/2024 [facility] Work Phone: Comment on above: Once per week for 4 Occurrences starting 03/14/2023 until 03/13/2024 Urinalysis, blood, qualitative [facility] Urine culture [facility] Urine culture [facility] Urine culture [facility] Urine dipstick for glucose [facility] Urine dipstick for l eukocyte esterase [facility] Urine dipstick for nitrite [facility] Urine dipstick for protein [facility] Urine examination [facility] Urine microscopy: ep ithelial cells [facility] Urine Microscopy: wh ite cells [facility] Urobilinogen [Presen ce] in Urine [facility] End: 02-26-2024 US LEG VEIN DVT UNL VAS LAB US LEG VEIN DVT UNL VAS LAB Vascular Lab Routine Pain of right lower extremity 1 Occurrences starting 02/25/2023 until 02/26/2024 [facility] Work Phone: Comment on above: 1 Occurrences starting 02/25/2023 until 02/26/2024 Wound Culture Wound Culture [facility] Work Phone: [facility] Immunizations Immunization Date Immunization Notes Care Provider Priyanka Begum-10-2024 influenza, seasonal, injectable Amanda RUIZ Work Phone: [facility] 06-18-2024 influenza virus vaccine, unspecified formulation 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 [employer] Work Phone: [facility] 07-13-2023 influenza, injectabl e, quadrivalent, contains preservative Immunization Tali Work Phone: [facility] 07-13-2023 influenza virus vaccine, unspecified formulation 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 Zaida Gaston Work Phone: [facility] 12-29-2020 Covid (Moderna) Dr. Zaida xavier Work Phone: [facility] 12-08-2020 Covid (Moderna) Dr. Zaida xavier Work Phone: [facility] 12-06-2020 tuberculin skin test ; purified protein derivative solution, intradermal Zaida Gaston MD Work Phone: [facility] 11-24-2020 COVID-19 vaccine, fu ll dose (MODERNA) [facility] Work Phone: [facility] Work Phone: 06-09-2020 influenza virus vaccine, unspecified formulation [facility] Work Phone: [facility] Work Phone: 05-23-2020 influenza, seasonal, injectable [facility] Work Phone: [facility] Work Phone: 06-28-[address] Zaida Gaston Work Phone: [facility] 06-28-2019 influenza, seasonal, injectable, preservative free [facility] Work Phone: [facility] Work Phone: 03-16-2019 hepatitis B vaccine, adult dosage [facility] Work Phone: [facility] Work Phone: 11-17-2018 hepatitis B vaccine, adult dosage [facility] Work Phone: [facility] Work Phone: 10-21-2018 hepatitis B vaccine, adult dosage [facility] Work Phone: [facility] Work Phone: 09-22-2018 hepatitis B vaccine, adult dosage [facility] Work Phone: [facility] Work Phone: 06-24-2018 influenza, injectabl e, quadrivalent, preservative free Dr. Zaida Gaston Work Phone: [facility] 06-24-2018 influenza, seasonal, injectable Dr. Zaida Gaston Work Phone: [facility] 06-24-2018 influenza, seasonal, injectable, preservative free [facility] Work Phone: [facility] Work Phone: 05-19-2018 influenza, injectabl e, quadrivalent, contains preservative [facility] Work Phone: [facility] 07-23-[address] Zaida Gaston Work Phone: [facility] 07-23-2017 influenza, injectabl e, quadrivalent, contains preservative [facility] Work Phone: [facility] Work Phone: 07-23-2017 influenza, seasonal, injectable, preservative free [facility] Work Phone: [facility] Work Phone: 06-12-2016 influenza, injectabl e, quadrivalent, contains preservative [facility] Work Phone: [facility] Work Phone: 05-24-2015 tetanus toxoid, reduced diphtheria toxoid, and acellular pertussis vaccine, adsorbed [facility] Work Phone: [facility] Work Phone: 11-07-2012 pneumococcal polysaccharide vaccine, 23 valent [facility] Work Phone: [facility] Work Phone: NEGATED: Highlighted row has not occurred!07-13-2022 influenza, injectable, quadrivalent, contains preservative Zaida Gaston MD Work Phone: [facility] Work Phone: Comment on above: Deferred: OTHER - ve rified by Monik Chinchilla Payers Date Payer Category Payer Medicare (Managed Care) [facility] DUAL COMPLETE PPO SNP [id number] 2024 Unknown [id number] 2023 Self-pay [id number] 2023 Unknown [id number] 2022 Unknown [employer] MDCR ADV [employer] MCR ADV TRANSPLANT [id number] 2022-Present [phone] [address] [address] [place] [address] PPO [id number] 2021 Medicaid [id number] 2021 Medicare [id number] 2021 Unknown [id number] 2019 Medicare [id number] 2015 Medicare [id number] Unknown [id number]. 462 Unknown [id number]. 462 Unknown [id number]. 462 Unknown [id number]. 462 Unknown [id number]. 462 Unknown [id number]. 462 Unknown [id number] [id number]. 462 Unknown [id number]. 462 Unknown [id number] [id number]. 462 Unknown [id number] [id number]. 462 Unknown [id number]. 462 Unknown [id number] [id number]. 462 Unknown [id number] [id number]. 462 Unknown [id number] [id number]. 462 Unknown [id number] [id number]. 462 Unknown [id number] 462 Social History Date Type Detail Facility Start: 09-30-2014 End: 08-13-2023 Tobacco smoking status NHIS Never smoked tobacco [facility] Start: 09-30-2014 End: 07-13-2022 Tobacco use and exposure User of smokeless tobacco [facility] History of tobacco use Snuff User [facility] Start: 12-08-2021 End: 05-14-2025 Alcohol intake Ex-drinker (finding) [facility] Start: 08-14-2020 End: 07-04-2022 History SDOH Alcohol Frequency 1 [facility] Start: 08-14-2020 History SDOH Alcohol Std Drinks 98 [facility] Start: 08-14-2020 End: 07-04-2022 History SDOH Social Connections Phone 2 [facility] Start: 08-14-2020 History SDOH Social Connections Living 8 [facility] Start: 08-14-2020 History SDOH Physical Activity DPW 0 [facility] Start: 08-14-2020 End: 08-25-2022 History SDOH Financial 3 [facility] Start: 08-14-2020 Education 12 [facility] Start: 09-30-2014 End: 07-13-2022 Tobacco Comment snuff x 33 years [facility] Start: 1970 Sex Assigned At Male [facility] Start: 11-14-2021 End: 08-03-2022 Exposure to SARS-CoV-2 (event) Not sure [facility] Start: 09-18-2021 End: 11-11-2023 Tobacco smoking status NHIS Unknown if ever smoked [facility] Start: 10-06-2019 None [facility] Start: 10-06-2019 Spouse/ Significant Other;With Family [facility] Start: 10-07-2019 Chew [facility] Start: 12-22-2021 End: 01-01-2022 Exposure to SARS-CoV-2 (event) Unable to assess [facility] Start: 08-24-2022 End: 01-17-2023 History of Social function [facility] Start: 08-24-2022 End: 01-17-2023 Social connection and isolation panel [facility] Start: 08-10-2012 In a typical week, how many times do you talk on the telephone with family, friends, or neighbors? Patient refused [facility] Are you now , , , , never or living with a partner? Refused [facility] Do you feel stress - tense, restless, nervous, or anxious, or unable to sleep at night because your mind is troubled all the time - these days [OSQ] Not at all [facility] (I/We) worried anil er (my/our) food would run out before (I/we) got money to buy more. DK or Refused [facility] Start: 08-14-2020 Gender identity Identifies as male gender (finding) [facility] Start: 08-14-2020 Sexual orientation Heterosexual (finding) [facility] Start: 08-13-2023 Tobacco use and exposure Former smokeless tobacco user [facility] Start: 08-13-2023 Tobacco Comment snuff x 33 yearsQuit in 2020 [facility] Do you belong to any clubs or organizations such as mandaen groups, unions, fraternal or athletic groups, or school groups? No [facility] Are you now , , , , never or living with a partner? Living with partner [facility] How often to you hav e a drink containing alcohol? Monthly or less [facility] How many standard dr inks containing alcohol do you have on a typical day? 1 or 2 [facility] How often do you hav e 6 or more drinks on 1 occasion? Never [facility] Do you feel stress - tense, restless, nervous, or anxious, or unable to sleep at night because your mind is troubled all the time - these days [OSQ] To some extent [facility] Start: 07-22-2024 Sexual orientation Choose not to disclose [facility] Start: 11-19-2024 Sex Male (finding) [facility] At any time in the p ast 12 months, were you homeless or living in fpc [including now]? Yes [facility] Medical Equipment Procedure Code Equipment Code Equipment [...] catheter, hemodialysis FDA Start: 08-27-2018 Stent Inlay [place] 4.7fr Taper [place] Green Polymer Phreecoat 14cm Ureteral - [id number] Start: 03-09-2021 [id number], [id number], [id number], [id number], [id number] Start: 04-26-2021 End: 07-28-2024 Comment on above: [...] Start: 08-08-2018 Stent 8fr Pigtail Curve Thin Agent Licensing Clerk Percuflex Metal 22cm Ureteral Large - [id number] Start: 04-22-2025 Stent Inlay [place] 4.7fr Taper [place] Green Polymer Phreecoat 14cm Ureteral - [id number] Start: 05-14-2025 Goals Date Patient Goal [...] Assessment Result Facility 04-17-2025 Functional status Chair [facility] Work Phone: 01-29-2025 Are you deaf, or do you have serious difficulty hearing No 01/29/2025 3:51 PM Deep Rico RN No [facility] 01-29-2025 Are you blind, or do you have serious difficulty seeing, even when wearing glasses Yes 01/29/2025 3:51 PM Deep Rico RN Yes [facility] 01-29-2025 Do you have serious difficulty walking or climbing stairs Yes 01/29/2025 3:51 PM Deep Rico, RN Yes [facility] 01-29-2025 Do you have difficul ty dressing or bathing No 01/29/2025 3:51 PM Deep Rico, RN No [facility] 01-29-2025 Because of a physica l, mental, or emotional condition, do you have difficulty doing errands alone such as visiting a physician's office or shopping Yes 01/29/2025 3:51 PM Deep Rico RN Yes [facility] 11-05-2022 Functional status Ambulates [facility] Work Phone: 03-28-2022 Functional status Ambulates;Bath room Privilege [facility] Work Phone: 09-20-2021 Functional status Dangle Feet [facility] Work Phone: 03-12-2021 Are you deaf, or do you have serious difficulty hearing No 03/12/2021 9:19 AM Yareli Hester, ANDER No [facility] 03-12-2021 Are you blind, or do you have serious difficulty seeing, even when wearing glasses No 03/12/2021 9:19 AM Yareli Hester RN No [facility] 03-12-2021 Do you have serious difficulty walking or climbing stairs No 03/12/2021 9:19 AM Yareli Hester RN No [facility] 03-12-2021 Do you have difficul ty dressing or bathing No 03/12/2021 9:19 AM Yareli Hester RN No [facility] 03-12-2021 Because of a physica l, mental, or emotional condition, do you have difficulty doing errands alone such as visiting a physician's office or shopping No 03/12/2021 9:19 AM Yareli Hester RN No [facility] Mental Status Date Assessment Result Facility 04-17-2025 Cognitive function Voice/Name [facility] Work Phone: 04-14-2025 Cognitive function Level Of Cons ciousness Follows Commands;Lethargic [facility] Work Phone: 04-04-2025 Cognitive function Voice/Name [facility] Work Phone: 01-29-2025 Because of a physica l, mental, or emotional condition, do you have serious difficulty concentrating, remembering, or making decisions No 01/29/2025 3:51 PM Deep Rioc, RN No [facility] 01-26-2025 Cognitive function Awake;Alert;A ppropriate;Fol lows Commands [facility] Work Phone: 11-19-2024 Cognitive function Voice/Name [facility] Work Phone: 03-13-2023 Cognitive function Level Of Cons ciousness Awake;Alert;Follows Commands [facility] Work Phone: 11-04-2022 Cognitive function Voice/Name [facility] Work Phone: 08-28-2022 Cognitive function Level Of Cons ciousness Awake;Alert;Appropriate;Fol lows Commands [facility] Work Phone: 03-28-2022 Cognitive function Voice/Name [facility] Work Phone: 09-20-2021 Cognitive function Voice/Name [facility] Work Phone: 09-14-2021 Cognitive function Level Of Cons ciousness Awake;Alert;Appropriate;Fol lows Commands [facility] Work Phone: 03-12-2021 Because of a physica l, mental, or emotional condition, do you have serious difficulty concentrating, remembering, or making decisions No 03/12/2021 9:19 AM EDT Yareli Sevilla RN No [facility] Clinical Notes 11-26-2017 to 05-14-2025 Patient InstructionsGenoveva Begum MA - 05/14/2025 9:32 AM EDMariza Wilder APRN.[facility] - 05/14/2025 9:06 AM EDTTelephone Encounter [...] your doctor prescribed. documented in this encounter [facility] 05-14-2025 History of Presen t illness Narrative Patient here for trial voiding. Bladder filled with 180 cc's of Sterile Water. Catheter removed. Patient was able to void. Mariza Worrell notified. Catheter: Not reinserted..\ Voided 150 cc's Genoveva Begum MA Assessment/Plan: N20.0 Nephrolithiasis (primary encounter diagnosis) Z94.0 Kidney replaced by transplant (HCC) -Reviewed CTA imaging: atrophic [place] kidney. Nos tones or hydro Transplant [...] fluids count but water is the best. [place] Intake- Recommend increasing dietary citrate intake. 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 OPERATOR [employer] KNIFE ========= Chief complaint: Kidney stones Italo Burgos [...] Diagnosis Date Acute diastolic (congestive) heart failure ([facility]) Bronchitis Chronic kidney failure, stage 4 (severe) ([facility]) 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 ([facility]) 12/16/2018 Depression Detached retina DM type 2, goal HbA1c < 7% ([facility]) Erectile dysfunction, unspecified erectile dysfunction type ESRD (end stage renal disease) ([facility]) GERD (gastroesophageal reflux disease) Hyperlipidemia Kidney replaced by transplant ([facility]) Kidney stones LUANNE (obstructive sleep apnea) PNA (pneumonia) Proliferative retinopathy 02/10/2019 PTE (post-transplant erythrocytosis) Snoring Unspecified essential hypertension Vitamin D deficiency Vitamin D deficiency PAST SURGICAL HISTORY Procedure Laterality Date AMPUTATION TOE,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: 04/24/2025 Kidneys: -[place] kidneys: Mildly atrophic. No calculus, hydronephrosis or [...] Currently Types: Marijuana documented in this encounter [facility] 05-13-2025 Telephone encounter Note Transitional Care Management (TCM) [facility] Provider Action / FYI: NA SUMMARY: Outreach type: INITIAL OUTREACH Discharge Network Status: In-Network Discharge Source of Patient: [facility] TCM Discharge Report Patient discharged from [facility] on 05/02/25. Admitted for Pyelonephritis. Contact made with patient: No - next outreach attempt will be on next business day. Jon Jacobsen May 13, 2025 2:13 PM [facility] 05-13-2025 Miscellaneous Notes Transitional Care Management (TCM) [facility] Provider Action / FYI: NA SUMMARY: Outreach type: INITIAL OUTREACH Discharge Network Status: In-Network Discharge Source of Patient: [facility] TCM Discharge Report Patient discharged from [facility] on 05/02/25. Admitted for Pyelonephritis. Contact made with patient: No - next outreach attempt will be on next business day. Jon Jacobsen May 13, 2025 2:13 PM documented in this encounter [facility] 05-04-2025 Telephone encounter Note Transitional Care Management (TCM) [facility] Provider Action / FYI: NA SUMMARY: Outreach type: INITIAL OUTREACH Discharge Network Status: In-Network Discharge Source of Patient: [facility] TCM Discharge Report [facility] [facility] on 05/02/25. Admitted for Pyelonephritis. Contact made with patient: No - next outreach attempt will be on next business day. Jon Jacobsen May 04, 2025 1:11 PM [facility] 05-04-2025 Miscellaneous Notes Transitional Care Management (TCM) [facility] Monitoring Program Provider Action / FYI: NA SUMMARY: Outreach type: INITIAL OUTREACH Discharge Network Status: In-Network Discharge Source of Patient: [facility] TCM Discharge Report Patient discharged from [facility] on 05/02/25. Admitted for Pyelonephritis. Contact made with patient: No - next outreach attempt will be on next . Jon Jacobsen May 04, 2025 1:11 PM documented in this encounter [facility] 04-21-2025 Telephone encounter Note Patient returned call to office to discuss surgical consult. Offered May [address] Wesley, however, patient is unable to go to . He stays in [place] and and [facility] would be tough to get to for a consult. He is intersted in [facility] or [facility]. Advised that we do have a surgeon at [facility]. Will consult with him about surgical consult openings. Kindra Martinez RN April 21, 2025 3:44 PM [facility] 04-21-2025 Miscellaneous Notes Patient returned call to office to discuss surgical consult. Offered May [address] Wesley, however, patient is unable to go to . He stays in [facility] and [facility] would be tough to get to for a consult. He is intersted in [facility] or [facility]. Advised that we do have a surgeon at [facility]. Will consult with him about surgical [...] base about this patient currently admitted at [facility] with UTI. - Hx of kidney transplant [...] so much! Rosalina documented in this encounter [facility] 04-21-2025 Telephone encounter Note Called patient to [...] base about this patient currently admitted at [facility] with UTI. - Hx of kidney transplant [...] stone while inpatient? Thanks so much! Rosalina [facility] 04-19-2025 Note [facility] Medical Records Department [address] [place] [address] Discharge Summary 04/19/25 1703 MR#: [id number] Acct: [id number] Name: ITALO BURGOS Rep #: [id number] : 1970 54 From: Shruti Jara MD PCP: Dr. Zaida Gaston MD Status:DIS IN Location: [facility] [id number] Providers Date of Admission: 04/15/25 Date of [...] to restart vancomycin * Transfer pending to [facility] Main campus. * TTE ordered as well as repeat blood cultures. * Urology consult not placed as urology has stated that patient should be transferred to [facility]. He has been accepted at [facility] pending bed availability. * Hydrate [...] DNR CCA no intubation Disposition: Transferred to [facility] pending bed availability. Medications at [...] right kidney transplant and follows up with [facility]. He said he also had a history of kidney stones and had been scheduled to follow-up at [facility] where he usually goes for the right [...] with percutaneous nephrosto (more content not included)... [facility] 04-18-2025 Consult note Note Date/Time April 17, 2025 11:27pm [facility] Medical Records Department [address] [place] [address] Pharmacokinetic/Renal -Consult 04/17/252325 MR#: [id number] Acct: [id number] Name: ITALO BURGOS Rep #:[id number] : 1970 54 From: Aj Fields od PCP: Dr. Zaida Gaston MD Status:ADM I N Y Location: [place] [address] Consult Antibiotic Management Pharmacy has been consulted [...] Signature (if applicable): Date CC: ~ Signed [facility] Work Phone: 1(342) 264-317108-09-2025 Progress note Author Shruti [facility] Note Date/Time April 17, 2025 4:2 3pm [facility] Medical Records Department [address] [place] [address] Progress Note 04/17/25 1134 MR#: [id number] Acct: [id number] Name: ITALO BURGOS Rep #:[id number] : 1970 54 From: Shruti Jara MD PCP: Dr. Zaida Gaston MD Status:ADM I N Location: [place] [address] Subjective Subjective Patient seen and examined with [...] % (Auto) 69.5, Lymph % (Auto) 20.3, Bullitt % (Auto) 7.9, Eos % (Auto) 1.5, [...] to restart vancomycin * Transfer pending to [facility] Main campus. * TTE ordered as well as repeat blood cultures. * Urology consult not placed as urology has stated that patient should be transferred to [facility]. He has been accepted at [facility] pending bed availability. * Hydrate [...] DNR CCA no intubation Disposition: Transferred to [facility] pending bed availability. 04/17/25 1623 <Electronically signed by Shruti Jara MD> Shruti Jara MD Cosigner Signature (if applicable): CC: ~ Signed [facility] Work Phone: 1(924) 293-312508-08-2025 Progress note Author [facility] Note Date/Time April 16, 2025 6:2 4pm [facility] Medical Records Department [address] [place] [address] Progress Note 04/16/25 1426 MR#: [id number] Acct: [id number] Name: ITALO BURGOS Rep #:[id number] : 1970 54 From: Shruti Jara MD PCP: Dr. Zaida Gaston MD Status:ADM I N Location: [place] [address] Subjective Subjective Patient seen and examined. He is feeling much better today. I saw him with hisnurse by his bedside. He had no active complaints. Review of systems otherwisenegative. He is still awaiting transfer to [facility] pending bed availability. Objective Data [...] 83.9 H, Lymph % (Auto) 7.9 L, Bullitt % (Auto) 7.4, Eos % (Auto) 0.2, [...] (Auto) 70.5 H, Lymph % (Auto) 19.2, Bullitt % (Auto) 9.5, Eos % (Auto) 0.4, [...] to restart vancomycin * Transfer pending to [facility] Main campus. * TTE ordered as well as repeat blood cultures. * Urology consult not placed as urology has stated that patient should be transferred to [facility]. He has been accepted at [facility] pending bed availability. * Hydrate [...] DNR CCA no intubation Disposition: Transferred to [facility] pending bed availability. Charges/Coding Visit Charges Inpatient E&M: 17942 Subs Hosp L2 04/16/25 1824 <Electronically signed by Shruti Jara MD> Shruti Jara MD Cosigner Signature (if applicable): CC: ~ Signed [facility] Work Phone: 1(378) 322-470508-08-2025 Consult note Author Satish Nava [facility] Note Date/Time April 16, 2025 10: 26am [facility] Medical Records Department [address] [place] [address] Consultation - Infectious Dx 04/16/25 1019 MR#: [id number] Acct: [id number] Name: ITALO BURGOS Rep #:[id number] : 1970 54 From: Satish cochran MD PCP: Dr. Zaida Gaston MD Status:ADM I N Location: [place] [address] Assessment & Plan Assessment/Plan (1) Kidney transplant [...] performed and neg except as noted above. [facility] Medical History MRSA (methicillin resistant staph [...] catheterization (LHC) (~06/26/11) Atherosclerotic heart disease of [place] coronary artery without angina pectoris Essential [...] 83.9 H, Lymph % (Auto) 7.9 L, Bullitt % (Auto) 7.4, Eos % (Auto) 0.2, [...] (Auto) 70.5 H, Lymph % (Auto) 19.2, Bullitt % (Auto) 9.5, Eos % (Auto) 0.4, [...] applicable): CC: Dr. Zaida Gaston MD~ Signed [facility] Work Phone: 1(729) 950-906208-07-2025 Consult note Author Santiago Umana [facility] Note Date/Time April 15, 2025 5:5 1pm [facility] Medical Records Department [address] [place] [address] Pharmacokinetic/Renal -Consult 04/15/25 1435 MR#: [id number] Acct: [id number] Name: ITALO BURGOS Rep #:[id number] : 1970 54 From: Santiago Umana PCP: Dr. Zaida Gaston MD Status:ADM I N Y Location: [place] [address] Consult Antibiotic Management Pharmacy has been consulted [...] Date Shruti Jara MD CC: ~ Signed [facility] Work Phone: 1(355) 739-188808-07-2025 History and physical note Author Shruti [facility] Note Date/Time April 15, 2025 5:3 4pm [facility] Medical Records Department [address] [place] [address] H&P Exam - Hospitalist 04/15/25 0944 MR#: [id number] Acct: [id number] Name: ITALO BURGOS Rep #:[id number] : 1970 54 From: Shruti Jara MD PCP: Dr. Zaida Gaston MD Status:ADM I N Location: [place] [address] HPI - General General Date of Admission: [...] right kidney transplant and follows up with [facility]. He said he also had a history of kidney stones and had been scheduled to follow-up at [facility] where he usually goes for the right [...] stated the patient should be transferred to [facility] as he could not do an intervention here in light of him being a kidney transplant patient. Patient was accepted at [facility]. However after staying overnight in the ED and now getting a bed at [facility], decision was made to admit patient to us to [facility] pending transfer. Patient is understanding of the [...] is currently homeless and lives in a fpc. [facility] Medical History MRSA (methicillin resistant staph [...] catheterization (LHC) (~06/26/11) Atherosclerotic heart disease of [place] coronary artery without angina pectoris Essential [...] (Auto) 75.7 H, Lymph % (Auto) 12.2L, Bullitt % (Auto) 11.3 H, Eos % (Auto) [...] Clarity Cloudy, Urine pH 6.0, Ur Specific Perrin 1.015, Urine Protein 100 H, Urine Glucose [...] 17:50 IMPRESSION: No Acute Findings. Reading Location: [id number] Abdomen/Pelvis CT 04/14/25 20:49 IMPRESSION: Status post right hemipelvic renal transplant with percutaneous nephrostomy in good position.. Persistent mid ureteral 9 mm stone causing hydronephrosis. Superimposed kidney infection is possible. Possible cystitis. Reading Location: [place] [address] Assessment & Plan Assessment/Plan (1) Hydronephrosis with [...] to [facility]. He has been accepted at [facility] pending bed availability. * Hydrate [...] else otherwise done for him. * Total jjdn-ps-yojv time 16 minutes. * Disposition: Transferred to [facility] pending bed availability. Charges/Coding Visit Charges Inpatient E&M: 32599 Init Hosp L3 Procedures Hospitalists Procedures: 46786 Advncd Care Plan 30 Min 04/15/25 1607 <Electronically signed by Shruti Jara MD> Cosigner Signature (if applicable): CC: Dr. Zaida Gaston MD; Dr. Shruti Jara MD~ Signed [facility] Work Phone: 1(341) 490-364908-07-2025 Evaluation note* Diagnosis Onset Date Resolution Status Admit Date Hydronephrosis with urinary obstruction due to ureteral calculus acute April 15, 2025 10:06am [facility] Work Phone: 1(193) 213-587608-07-2025 Evaluation note* Diagnosis Onset Date Resolution Status Admit Date Acute pyelonephritis due to bacteria acute April 15, 2025 10:06am Hydronephrosis with urinary obstruction due to ureteral calculus acute April 15, 2025 10:06am Kidney transplant recipient acute April 15, 2025 10:06am Staphylococcus aureus bacteremia acu te April 15, 2025 10:06am Acute on chronic renal insufficiency chronic April 15, 2025 10:06am [facility] Work Phone: 1(869) 821-456908-06-2025 Radiology Diagnostic study note [facility] Imaging Services [address] [place] [address] Abdomen/Pelvis without Cont MR#: [id number] Acct: [id number] Name: ITALO BURGOS Rep #: [id number] : 1970 M 54 From: Tasneem Linn MD PCP: Dr. Zaida Gaston MD Status: REG E R Study:Abdomen/Pelvis without Cont Date of Exa m: 04/14/25 Exam# [id number] Ordering Dr: Daylin Santiago MD PROCEDURE: ABDOMEN/PELVIS [...] cholecystectomy. Unremarkable liver, pancreas, spleen, adrenal glands. [place] kidneys are mildly atrophic. There is a [...] infection is possible. Possible cystitis. Reading Location: [place] [address] CC: Dr. Zaida Gaston MD; Dr. Chuy Santiago MD ~ Regional Administrative Assistant: Signed [facility]08-06-2025 Radiology Diagnostic study note [facility] Imaging Services [address] [place], [place] [address] Chest 1 View (Portable) MR#: [id number] Acct: [id number] Name: ITALO BURGOS Rep #: [id number] : 1970 M 54 From: Gallito Jack MD PCP: Dr. Zaida Gaston MD Status: REG E R Study:Chest 1 View (Portable) Date of Exam: 04/14/25 Exam# [id number] Ordering Dr: Daylin Santiago MD PROCEDURE: CHEST 1 VIEW (PORTABLE) 04/14/2025 REASON FOR EXAM: NONPRODUCTIVE COUGH, FEVER, RALES RIGHT BASE TECHNIQUE: Frontal view of the chest. COMPARISON: 01/2025. FINDINGS: The heart is normal in size. The lungs are clear. No consolidation. No acute osseous abnormalities. RAD/Chest 1 View (Portable) IMPRESSION: No Acute Findings. Reading Location: [facility] CC: Dr. Zaida Gaston MD; Dr. Chuy Santiago MD ~ Regional Administrative Assistant: Signed [facility]08-04-2025 Telephone encounter Note* Telephone Encounter - Verna Jensen RPh - 04/12/2025 10:19 AM EDT Called patient for scheduled phone appointment today. Unable to reach x 2, LMOM. Primary Care Pharmacy Rescheduling Outreach Call center, please contact patient and reschedule telephone visit for Diabetes management within ~4 week(s). (Visit length: 30 minutes) Thank you, Verna Jensen RPh 04/12/2025 10:19 AM [facility] Work Phone: [phone]) 232-492708-04-2025 Miscellaneous Notes* Telephone Encounter - Mey VernaPietro - 04/12/2025 10:19 AM EDT Called patient for scheduled phone appointment today. Unable to reach x 2, LMOM. Primary Care Pharmacy Rescheduling Outreach Call center, please contact patient and reschedule telephone visit for Diabetes management within ~4 week(s). (Visit length: 30 minutes) Thank you, Verna Jensen RPh 04/12/2025 10:19 AM [facility] Telephone encounter Note * Telephone Encounter - [...] weeks. Pt verbalized understanding. Jeanette Rendon RN [facility]07-30-2025 Miscellaneous Notes* Telephone Encounter - Jeanette Rendon [...] that we do not have nursing in [place] that make home visits. Sw spoke with patient trying to discern what social service needs he has at this time. Patient states I need help with the tube sticking out of my side. Sw tried to gain more details and was able to understand that patient goes to [facility]. Patient has ostomy and is asking about ostomy care issue. Sw noted that she would place patient on hold and requested assistance from triage nurse to assess patient needs. [facility] Telephone encounter Note * Telephone Encounter - Luzmaria Bagley MSW - 04/07/2025 12:49 PM EDT This Sw received call from [facility] asking Sw to speak with patient regarding sendingnurse to see patientregarding tube sticking out of his side. Sw noted that we do not have nursing in [place] that make home visits. Sw spoke with patient trying to discern what social service needs he has at this time. Patient states I need help with the tube sticking out of my side. Sw tried to gain more details and was able to understand that patient goes to [facility]. Patient has ostomy and is asking about ostomy care issue. Sw noted that she would place patient on hold and requested assistance from triage nurse to assess patient needs. [facility]-28-2025 Telephone encounter Note* Telephone Encounter - Xi [...] Xi Gunter April 05, 2025 1:07 PM [facility]07-28-2025 Miscellaneous Notes* Telephone Encounter - Xi Moreno [...] 05, 2025 1:07 PM documented in [facility] Discharge summary [facility] Medical Records Department [address] [place] [address] Emergency Department Summary 04/04/25 MR#: [id number] Acct: [id number] Name: ITALO BURGOS Rep #:[id number] : 1970 54 From: Chuy Santiago MD [...] is a 54-year-old male. He presents from [facility]. He arrived by ambulance. He denies headache. [...] catheterization (LHC) (~06/26/11) Atherosclerotic heart disease of [place] coronary artery without angina pectoris Essential [...] record(s) reviewed:: Prior outpatient record (Seen by human capital manager, Dr. Durand for diabetic neuropathy.), Prior ED [...] 75.6 H Lymph % (Auto) 14.4 L Bullitt % (Auto) 8.7 Eos % (Auto) 0.7 [...] Sl. Cloudy Urine pH 6.5 Ur Specific Perrin 1.010 Urine Protein 30 H Urine Glucose [...] (Auto) Neut % (Auto) Lymph % (Auto) Bullitt % (Auto) Eos % (Auto) Baso % (Auto) Absolute Neuts (auto) Absolute Lymphs (auto) Nucleated RBC % Sodium Potassium Chloride Carbon Dioxide Anion Gap BUN Creatinine Estim Creat Clear Calc Est GFR (MDRD) Non-Af BUN/Creatinine Ratio Glucose Calcium Urine Color Urine Clarity Urine pH Ur Specific Perrin Urine Protein Urine Glucose (UA) Urine Ketones [...] of insulin, Overweight, Atherosclerotic heart disease of [place] coronary artery without angina pectoris, Hypertension, [...] Care Provider] - 3-5 Days Print Language: [place] Disposition Disposition: Home, Self Care What to do if you have Problems For any increased pain, shortness of breath, bleeding, nausea or vomiting, chestpain, or any unexpected problems, contact your Primary Care Provider. Call [facility] ([phone]) or report tothe closest Emergency Room. Call 911 if necessary. 04/04/25 8025 Cosigner Signature (if applicable): CC: Dr. Zaida Gaston MD ~ Signed [facility]07-27-2025 Discharge summary Author Chuy Santiago [facility] Note Date/Time April 04, 2025 4:28 pm [facility] Medical Records Department [address] [place] [address] Emergency Department Summary 04/04/25 MR#: [id number] Acct: [id number] Name: ITALO BURGOS Rep #:[id number] : 1970 54 From: Chuy Santiaog MD PCP: Dr. Zaida Gaston MD Status:REG [...] is a 54-year-old male. He presents from [facility]. He arrived by ambulance. He denies headache. [...] catheterization (LHC) (~06/26/11) Atherosclerotic heart disease of [place] coronary artery without angina pectoris Essential [...] record(s) reviewed:: Prior outpatient record (Seen by human capital manager, Dr. Durand for diabetic neuropathy.), Prior ED [...] 75.6 H Lymph % (Auto) 14.4 L Bullitt % (Auto) 8.7 Eos % (Auto) 0.7 [...] Sl. Cloudy Urine pH 6.5 Ur Specific Perrin 1.010 Urine Protein 30 H Urine Glucose [...] (Auto) Neut % (Auto) Lymph % (Auto) Bullitt % (Auto) Eos % (Auto) Baso % (Auto) Absolute Neuts (auto) Absolute Lymphs (auto) Nucleated RBC % Sodium Potassium Chloride Carbon Dioxide Anion Gap BUN Creatinine Estim Creat Clear Calc Est GFR (MDRD) Non-Af BUN/Creatinine Ratio Glucose Calcium Urine Color Urine Clarity Urine pH Ur Specific Perrin Urine Protein Urine Glucose (UA) Urine Ketones [...] of insulin, Overweight, Atherosclerotic heart disease of [place] coronary artery without angina pectoris, Hypertension, [...] Care Provider] - 3-5 Days Print Language: [place] Disposition Disposition: Home, Self Care What to do if you have Problems For any increased pain, shortness of breath, bleeding, nausea or vomiting, chestpain, or any unexpected problems, contact your Primary Care Provider. Call [facility] ([phone]) or report to the closest Emergency Room. Call 911 if necessary. 04/04/25 1628 <Electronically signed by Chuy Santiago MD> Cosigner Signature (if applicable): CC: Dr. Zaida Gaston MD ~ Signed [facility] Work Phone: 1(240) 672-734507-07-2025 Telephone encounter Note* Telephone Encounter - Polina Molian RN - 03/15/2025 10:47 AM EDT Tried calling patient to follow up regarding medications/immunosuppressants but no answer, left voicemail for both patient Italo Burgos and alternate contact Laura Amin to call the Kidney Transplant Office back. Polina Molina RN [facility]07-07-2025 Miscellaneous Notes* Telephone Encounter - Polina Molina RN - 03/15/2025 10:47 AM EDT Tried calling patient to follow up regarding medications/immunosuppressants but no answer, left voicemail for both patient Italo Burgos and alternate contact Laura Amin to call the Kidney Transplant Office back. Polina Molina, RN documented in this encounterU[facility] Center07-07-2025 Telephone encounter Note * Telephone Encounter - 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 APRN.CNP - 03/15/2025 7:20 AM EDT Med refills needed. Not taking medications consistently so restarting bupropion at lower dose. 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 APRN.CNP [facility]07-07-2025 Miscellaneous Notes* Telephone Encounter - 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 APRN.CNP - 03/15/2025 7:20 AM EDT Med refills needed. Not taking medications consistently so restarting bupropion at lower dose. 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 APRN.CNP documented in this encounter[facility] Center07-[facility]-2025 Radiology Diagnostic study note [facility] Imaging Services [address] [place], [place] [id number] Abdomen/Pelvis without Cont MR#: [id number] Acct: [id number] Name: ITALO BURGOS Rep #: [id number] : 1970 M 54 From: Zuleyka Solis MD PCP: Dr. Zaida Gaston MD Status: REG E R Study:Abdomen/Pelvis without Cont Date of Exa m: 03/10/25 Exam# [id number] Ordering Dr: Byron Saldana DO EXAM: CT [...] the colon consistent with constipation. Reading [facility] CC: Dr. Zaida Gaston MD; Dr. Byron Saldana DO ~ Regional Administrative Assistant: Signed [facility]06-30-2025 Telephone encounter Note* Telephone Encounter - Verna Jensen, [facility] - 03/08/2025 3:50 PM EDT Had a [...] - Hx of taking metformin and Invokana, 9516-3527, was discontinued but uncertain why. - Previously was on basal/bolus insulin, switched because of hypoglycemia - Endo diagnosis is T2DM per charts though nurse couldn't find labs confirming this. Endo does not have any documentation of him being T1DM (first seen in 2018) Will send as FYI to PCP and also suggest getting Dm dx labs ordered. Verna Jensen PharmD, [facility] Primary Care Clinical Pharmacist [facility] Work Phone: 1(300) 618-631406-30-2025 Miscellaneous Notes* Telephone Encounter - Verna Jensen [...] - Hx of taking metformin and Invokana, 1164-2856, was discontinued but uncertain why. - Previously was on basal/bolus insulin, switched because of hypoglycemia - Endo diagnosis is T2DM per charts though nurse couldn't find labs confirming this. Endo does not have any documentation of him being T1DM (first seen in 2018) Will send as FYI to PCP and also suggest getting Dm dx labs ordered. Verna Jensen PharmD, [facility] Primary Care Clinical Pharmacist * Telephone Encounter - Verna Jensen RP - 03/08/2025 3:09 PM EDT PharmMery called human capital manager Dr. Steve Durand's office ([phone]) to confirm dx of T1 vs T2 and to also confirm Trulicity dose and any past DM medications. LMOM for nurse for someone to call me back. Can see office note from 03/08 for more detail. Verna Jensen PharmD, [facility] Primary Care Clinical Pharmacist documented in this encounterUc Medical Center06-30-2025 Telephone encounter Note * Telephone Encounter - Verna Jensen RPh - 03/08/2025 3:09 PM EDT PharmMery called human capital manager Dr. Steve Durand's office ([phone]) to confirm dx of T1 vs T2 and to also confirm Trulicity dose and any past DM medications. LMOM for nurse for someone to call me back. Can see office note from 03/08 for more detail. Verna Jensen PharmD, [facility] Primary Care Clinical Pharmacist [facility] History of Present illness Narrative* Verna Jensen [...] T1DM). Reports last appt with Dr. Durand (human capital manager) was 2 months ago. Says no med [...] was able to review Averages but then vacuum system tester turned off No issues with lows Date [...] not present. Adherence: denies missed doses. Pharmacy: [facility] [place] [address] - [address] [facility] [phone] [id number] Rx coverage: Payor: [facility] MEDICARE / Plan: [facility] DUAL COMPLETE PPO SNP / Product [...] Polyneuropathy Associated With Type 2 Diabetes Mellitus ([facility]) Nausea Vomiting Moderate Episode of Recurrent Major Depressive Disorder ([facility]) Stage 3a Chronic Kidney Disease ([facility]) Right Leg Weakness Gait Instability Kidney Transplant Recipient ([facility]) Type 1 Diabetes Mellitus On Insulin Therapy ([facility]) 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) ([facility]) Diarrhea Encounter for Monitoring Tacrolimus Therapy Immunosuppressive Management Encounter Following Kidney Transplant ([facility]) Nephrolithiasis PAST MEDICAL HISTORY Diagnosis Date Acute diastolic (congestive) heart failure ([facility]) Bronchitis Chronic kidney failure, stage 4 (severe) ([facility]) 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 ([facility]) 12/16/2018 Depression Detached retina DM type 2, goal HbA1c < 7% ([facility]) Erectile dysfunction, unspecified erectile dysfunction type ESRD (end stage renal disease) ([facility]) GERD (gastroesophageal reflux disease) Hyperlipidemia Kidney replaced by transplant ([facility]) Kidney stones LUANNE (obstructive sleep apnea) PNA [...] pt denies having therapist/psychiatrist Last scriptwas from [facility] on 07/13/24; [facility] reports last fill was January 2024; no fill on file with [facility]; pt denies getting meds from anywhere else buPROPion XL (WELLBUTRIN XL) 300 mg 24 hr tablet Take 1 tablet by mouth once daily. Reports taking QAM but not on external fill hx Last script was from [facility] on 07/13/24; no fill hx per [facility] or [facility] pharmacy carvedilol (COREG) 12.5 mg tablet Take 1 tablet by mouth two times a day. Taking BID Cholestyramine, Bulk, powd Take one(1) scoop dissolved in two(2) to six(6) ounces(oz) of fluid by mouth daily. Reports taking 1 scoop 3x/day when he eats to help with diarrhea; not on external fill hx Updated med list; last filled at [facility] in June 2024; script at [facility] was never filled ergocalciferol 50,000 unit capsule (VITAMIN D2, DRISDOL) Take 1 capsule by mouth one time a week. Reports taking every Saturday; not on external fill hx Last script was from [facility] on 07/22/23; not filled in past [...] on external fill hx; reports needing refill [facility] last filled in June 2024; no recent fills from [facility] pharmacy glucagon 3 mg/actuation nasal spray (BAQSIMI) Use 1 [place] in the nose as needed for low [...] unable to review TIR due to CGM vacuum system tester malfunction; no issues with lows; pt follows [...] as prescribed PharmD will reach out to human capital manager to confirm diabetes dx (T1 vs T2) Requested that patient have Dexcom vacuum system tester charged and present for future visits Indicated [...] only gets his meds filled at the [facility] associated with the hospital, occasionally will get a med filled at [facility]. I called pharmacy and confirmed the following: Bupropion 75 and 300mg tabs - 75mg tab was last filled January 23, 2024; 300mg not filled since prior to 2021; [facility] doesn't have any scripts on file (were cancelled in 2023) Ergocalciferol - not filled since prior to 2021 Cholestyramine - last filled June 2024; at [facility], script is on file, was never picked [...] present at f/up visit for [facility] medication review to better confirm what [...] verbalized understanding of instructions. Verna Jensen PharmD, [facility] Primary Care Clinical Pharmacist Time spent: 60 mins documented [facility] Telephone encounter Note * Telephone Encounter - Elizabeth Sweet - 02/25/2025 3:50 PM EDT Pt is due 05/06. Need qgenda schedule. [facility] Miscellaneous Notes* Telephone Encounter - Elizabeth Sweet [...] needed for schedulers?transplant kidney documented in this encounterU[facility]06-19-2025 Telephone encounter Note * Telephone Encounter - [...] other pertinent information needed for schedulers?transplant kidney [facility]-09[facility] Telephone encounter Note* Telephone Encounter - Verna [...] you, Verna Jensen RPh 02/15/2025 9:51 AM [facility] Work Phone: 1(322) 833-675406-09-2025 Miscellaneous Notes* Telephone Encounter - Verna Jensen [...] RPh 02/15/2025 9:51 AM documented in this encounterU[facility] Center06-03-2025 Telephone encounter Note * Telephone Encounter - Kerry Oscar RN - 02/09/2025 4:13 PM EDT Pt excluded from TCM-transplant patient and homeless-see Dr. Gaston epic note 02/05/25. [facility] Miscellaneous Notes* Telephone Encounter - Kerry Oscar RN - 02/09/2025 4:13 PM EDT Pt excluded from TCM-transplant patient and homeless-see Dr. Gaston epic note 02/05/25. documented in this encounterUc Medical Center06-02-2025 Telephone encounter Note * Telephone Encounter - Amanda Hayes LISW - 02/08/2025 2:02 PM EDT SW attempted to return pt's phone call. SW left pt a voicemail and will await return phone call. SARA Sahu-Yvette Transplant Spirits Model [facility] Work Phone: [phone] Miscellaneous Notes* Telephone Encounter - Amanda Hayes LISW - 02/08/2025 2:02 PM EDT SW attempted to return pt's phone call. SW left pt a voicemail and will await return phone call. MATTHEW Sahu Transplant Spirits Model documented in this encounterUc Medical Center06-01-2025 Discharge summary [facility] Medical Records Department [address] [place] [address] Emergency Department Summary 02/07/25 MR#: [id number] Acct: [id number] Name: ITALO BURGOS Rep #:[id number] : 1970 54 From: Toni Nelson DO [...] kidney and therefore was transferred up to [facility] where they remove the kidney stone and placed aurostomy tube. Patient notices that his bag is leaking and would like a new bag. He denies fevers or chills or sweats. He is otherwise doing well. His transplant was 5 years ago. [facility] Medical History Congestive heart failure (CHF) [...] catheterization (LHC) (~06/26/11) Atherosclerotic heart disease of [place] coronary artery without angina pectoris Essential [...] original tubing. Patient comfortable with plan. [facility] [facility]. Discharge Plan Triage Chief [...] MD [Primary Care Provider] - Print Language: Costa Rican Disposition Disposition: Home, Self Care What to do if you have Problems For any increased pain, shortness of breath, bleeding, nausea or vomiting, chestpain, or any unexpected problems, contact your Primary Care Provider. Call [facility] ([phone]) or report tothe closest Emergency Room. Call 911 if necessary. 02/07/25 1604 Cosigner Signature (if applicable): CC: Dr. Zaida Gaston MD ~ Signed [facility]06-01-2025 Discharge summary Author Toni Nelson [facility] Note Date/Time February 07, 2025 4:04p [facility] Medical Records Department [address] [facility] [place] [address] Emergency Department Summary 02/07/25 MR#: [id number] Acct: [id number] Name: ITALO BURGOS Rep #:[id number] : 1970 54 From: Toni Nelson DO [...] kidney and therefore was transferred up to [facility] where they remove the kidney stone and placed a urostomy tube. Patient notices that his bag is leaking and would like a new bag. He denies fevers or chills or sweats. He is otherwise doing well. His transplant was 5 years ago. [facility] Medical History Congestive heart failure (CHF) [...] catheterization (LHC) (~06/26/11) Atherosclerotic heart disease of [place] coronary artery without angina pectoris Essential [...] original tubing. Patient comfortable with plan. [place] [facility]. Discharge Plan Triage Chief [...] MD [Primary Care Provider] - Print Language: [place]ican Disposition Disposition: Home, Self Care What to do if you have Problems For any increased pain, shortness of breath, bleeding, nausea or vomiting, chestpain, or any unexpected problems, contact your Primary Care Provider. Call [facility] ([phone]) or report to the closest Emergency Room. Call 911 if necessary. 02/07/25 1604 <Electronically signed by Toni Nelson DO> Cosigner Signature (if applicable): CC: Dr. Zaida Gaston MD ~ Signed [facility] Work Phone: 1(868) 950-535605-30-2025 NoteHNO ID: [id number] Author: ZAIDA GASTON MD Service: ? Author [...] new device. Italo is currently residing at [facility], a fpc for homeless individuals, since September. He previously [...] Type 1 diabetes mellitus (more content not included)...[facility]05-30[facility] History of Present illness Narrative* Zaida [...] new device. Italo is currently residing at [facility], a fpc for homeless individuals, since September. He previously [...] - Follow-up appointment with Urology at the [facility] scheduled for next with Dr. Maryjane [...] Moderate episode of recurrent major depressive disorder ([facility]) (F33.1) Patient expresses feelings of depression related [...] excuse any unintended typographical errors. Recording using Tripcover software for draft documentation of the visit was discussed with the patient/authorized sales solutions representative; all questions welcomed and answered. Patient/authorized sales solutions representative agreed to proceed Zaida Gaston MD documented in this encounterUc Medical Center05-30-2025 Instructions* Patient Instructions* Zaida Gaston MD - 02/05/2025 11:40 AM EDT We discussed your kidney stones and nephrostomy tube: - You currently have a nephrostomy tube in place. You are changing it every 5 days and have not hadany issues managing it on your own. - You have a follow-up appointment with Urology at the [facility] next to discuss the next steps, including whether the tube will be removed or kept in place. Dr. Maryjane Quinteros will see you at [facility]. - Please ensure you have transportation arranged [...] depression. This prescription has been sent to [facility]. - If you experience any side effects or feel the medication is not helping, please let me know so we can adjust your treatment. We discussed your living situation and overall well-being: - You are currently staying at [facility], a fpc for homeless individuals. I encourage you to [...] Attend your urology appointment next at the [facility]. - Work with the pharmacist to improve your blood sugar control and learn how to use your continuousglucose monitor. - Continue taking your medications as prescribed, including the newly added Lexapro. - Complete your standing lab orders. - Reach out to me if you have any concerns or if your symptoms worsen. documented in this encounterUc Medical Center05-30-2025 Telephone encounter Note * Telephone Encounter - [...] hours please call or and ask the kiln head house operator to page the interventional radiology supervisor pharmacy salesperson. 5) To change or schedule an appointment [...] please call Interventional Radiology nurse triage line [phone], Saturday - Saturday 9 a.m. - 4 p.m. After hours please call and ask for Interventional Radiology Fellow pharmacy salesperson, pager [phone]. In the event of acute symptoms report directly to local emergency department and notify the Department of Intervention Radiology after the fact. All questions and concerns were addressed. I spent 10 minutes on the above conversation with the patient. [facility] Miscellaneous Notes* Telephone Encounter - Danni Singh [...] hours please call or and ask the kiln head house operator to page the interventional radiology supervisor pharmacy salesperson. 5) To change or schedule an appointment [...] please call Interventional Radiology nurse triage line [phone], Saturday - Saturday 9 a.m. - 4 p.m. After hours please call and ask for Interventional Radiology Fellow pharmacy salesperson, pager [phone]. In the event of acute symptoms report directly to local emergency department and notify the Department of Intervention Radiology after the fact. All questions and concerns were addressed. I spent 10 minutes on the above conversation with the patient. documented in this encounterUc Medical Center05-29-2025 Telephone encounter Note * Telephone Encounter - Azra Hogan - 02/04/2025 10:01 AM EDT Patient is an exclusion from post discharge call back program (transplant patient) [facility] Miscellaneous Notes* Telephone Encounter - Azra Hogan - 02/04/2025 10:01 AM EDT Patient is an exclusion from post discharge call back program (transplant patient) documented in this encounterUc Medical Center05-28-2025 Telephone encounter Note * Telephone Encounter - Amanda Hayes LISW - 02/03/2025 2:12 PM EDT ADDY made another attempt to contact ([phone]) pt regarding the pt possibility of him being homeless. SW left a voicemail and will await return phone call. SARA Sahu-Yvette Transplant Spirits Model [facility] Work Phone: [phone]) 852-836505-28-2025 Miscellaneous Notes* Telephone Encounter - Amanda Hayes LISW - 02/03/2025 2:12 PM EDT ADDY made another attempt to contact ([phone]) pt regarding the pt possibility of him being homeless. SW left a voicemail and will await return phone call. SARA Sahu-S Transplant Spirits Model documented in this encounterUc Medical Center05-28-2025 Telephone encounter Note * Telephone Encounter - Danni Singh RN - 02/03/2025 11:34 AM EDT Interventional Radiology Follow Up Call Attempted to reach Italo today for follow up from their tube placement. Unable to reach them at this time. Message left with phone number to return the call. [facility] Miscellaneous Notes* Telephone Encounter - Danni Singh RN - 02/03/2025 11:34 AM EDT Interventional Radiology Follow Up Call Attempted to reach Italo today for follow up from their tube placement. Unable to reach them at this time. Message left with phone number to return the call. documented in this encounterUc Medical Center05-27-2025 Telephone encounter Note * Telephone Encounter - Bon Concepcion RN - 02/02/2025 12:20 PM EDT Delfino Helm Anna, MD; Bon Concepcion RN I also called pt again as well and phone goes to VM but VM is full. I will sent a mychart to pt as well to contact the office for assistance with scheduling [facility] Miscellaneous Notes* Telephone Encounter - Bon Concepcion [...] February 02, 2025 ---- Neli Wesley MD [facility]; Bon Concepcion RN [facility]. This one we can add on for [...] RN - 01/29/2025 9:00 AM EDT [facility]; Bon Concepcion RN Left message on pt's VM to contact the office to confirm procedure date and set up consultation appt. documented in this encounterUc Medical Center05-27-2025 Telephone encounter Note * Telephone Encounter - Bon Concepcion RN - 02/02/2025 10:42 AM EDT Images from the original note were not included. Called patient to discuss scheduling surgery and consult with Dr. Wesley for kidney stone removal.No answer, Mailbox full. Mobile phone would not go through. Bon Concepcion RN February 02, 2025 ---- Neli Wesley MD [facility]; Bon Concepcion RN [facility]. This one we can add on for [...] Cr trending down now. Thank you Jordyn [facility]-23-[facility] Telephone encounter Note* Telephone Encounter - Bon Concepcion RN - 01/29/2025 9:00 AM EDT [facility], Neli Yee MD; Bon Concepcion RN Left message on pt's VM to contact the office to confirm procedure date and set up consultation appt. [facility]25 NoteHNO ID: [id number] Author: DENISE FORD RPh Service: Pharmacy Author [...] the following changes: mycophenolate resumed on the [place] med rec. Denise Ford [facility] Pager: [phone] 01/28/2025 1:22 PM Medication List CHANGE how [...] spray Commonly known as: BAQSIMI Use 1 [place] in the nose as needed for low [...] Your Medications These medications were sent to [facility] [place] [address] - [address] - [phone] [id number] [address] [place] [address] carvedilol 12.5 mg tabletCommunity [facility] Hospital05-22-2025 NoteHNO ID: [id number] Author: DANG MUNGUIA LSW Service: Care Management Author Type: Spirits Model Type: Care Mgt Progress Note Filed: 01/28/2025 [...] Transportation Arrangements Transportation Arrangements: Uber/Lyft/Ela (paid by [facility]) Handoff Communication: Handoff to: Primary Care Physician Primary Care Physician Name/Phone: Zaida Gaston MD PCP - General, Internal Medicine Since 04/26/2016 via soc Per primary team, plan for dc today and dc orders in. Pt to return [facility]. CM confirmed with fpc pt is able to return. No accepting HC as of now; primary team aware. TTR to transport. UPDATE 1:52pm: Per primary team, plan for dc tomorrow. SIGNATURE: CRISTHIAN Torres PATIENT NAME: Italo Burgos DATE: January 28, 2025 TIME: 12:54 [facility]05-22-2025 NoteHNO ID: [id number] Author: SHANA CANTOR MD Service: General Internal Medicine Author Type: Resident Type: Progress Notes Filed: 02/08/2025 12:43 Note Text: Attestation signed by Shana Cantor MD at 02/08/2025 12:43 PM (Updated) [facility] STAFF: TEACHING PHYSICIAN NOTE OF PERSONAL INVOLVEMENT [...] per nephrology SW/CM consult for meds and fpc Sepsis ruled out Shana Cantor MD Pager #: [phone] Date of service: January 28, 2025 Time of service: 8:37 PM DEPARTMENT OF HOSPITAL MEDICINE PROGRESS NOTE SERVICE DATE: 01/28/2025 SERVICE TIME: 8:38 AM Hospital Medicine/Primary Attending: Shana Cantor,* NIGHT AND WEEKEND COVERAGE: [facility] COVERAGE: Days: [phone], please page Joel Chapin for patient issues. [...] and Airways Line Duration Peripheral 01/27/25 0500 [facility] Left Wrist 20 Gauge 1 day Peripheral 01/27/25 0500 Left Forearm 20 Gauge 1 day Drain Duration Surgically Inserted Drain 01/27/25 0847 [facility] Nephrostomy Right Lower Quadrant Abdomen <1 [...] sliding scale, and ongoing (more content not included)...[facility] 01-28-2025 NoteHNO ID: [id number] Author: ALTAF DE JESUS MD Service: Interventional [...] care of nephrostomy tube are located at: [email or web address] A patient education video for care of a nephrostomy tube is available on YouTmNectar. Please use this link: [email or web address] Recommendations For Nephrostomy Tube Care: Leave tube [...] medical care of this patient. Please call [phone] if we can be of immediate assistance. For concerns between 4:30PM-7:00AM contact the on-call Interventional Radiology fellow/resident, pager [phone]. SIGNATURE: Altaf De Jesus MD PATIENT NAME: Italo Burgos DATE: January 28, 2025 TIME: 8:31 AM PAGER/CONTACT #: [phone] Memorial Hospital05-21-2025 NoteHNO ID: [id number] Author: EDWIGE SORENSEN RN Service: Care Management Author Type: Registered Nurse Type: Care Mgt Initial Assessment Filed: 01/27/2025 11:54 Note Text: CARE MANAGEMENT: ASSESSMENT AND DISCHARGE PLAN SERVICE DATE: January 27, 2025 SERVICE TIME: 9:50 AM PCP: Zaida Gaston MD Primary Contact: Extended Emergency Contact Information Primary Emergency Contact: [place] [address] [facility] Mobile Relation: Other Admission Status: Inpatient Insurance Provider: [facility] DUAL COMPLETE PPO SNP Discharge Planning requested by: Per Department Practice Potential Transition Plans To Be Determined Advance Directives Current Advance Directive: None Current Living Arrangements and Support Lives with: Alone (Homeless Longterm) Type of Residence: (Longterm) Support: How do you manage to accomplish the following: Independent: Ambulation, Bathe/Shower, Dress, Meals/Meal Prep, Going to the bathroom, Medication Management Current Services/Equipment DME: Rollator Walker Discharge Planning Patient Goal(s): General wellness Wayan of Choice Explained: Wayan of Choice Given: No Reason Not Given: [...] this time possible SNF/ECF vs return to [facility]pc Met with patient at bedside and introduced myself and the role of Vacuum Drier Operator. Cm will follow medical course and plan discharge accordingly. SIGNATURE: Edwige Sorensen RN PATIENT NAME: Italo Burgos DATE: January 27, 2025 TIME: 9:50 [facility]05-21-2025 NoteHNO ID: [id number] Author: RAY PINA MD Service: Critical Care Author Type: Physician Type: Progress Notes Filed: 01/27/2025 10:35 Note Text: MICU PROGRESS NOTE Please page MICU Jimenez for any concerns at [phone] Admission Date: 01/27/2025 Hospital Day # 0 [...] 0659(Not Admitted) 01/27/25699 - 01/28/25 0659 Shift [id number] 5313-4143 9746-7549 24 Hour Total 1535-2732 7589-0588 3441-8820 24 Hour Total INTAKE PO 0 0 [...] and Airways Line Duration Peripheral 01/27/25 0500 [facility] Left Wrist 20 Gauge <1 day Peripheral 01/27/25 0500 Left Forearm 20 Gauge <1 day Drain Duration Indwelling Urinary Catheter External Facility Wilhelm -- days Surgically Inserted Drain 01/27/25 0847 [facility] Nephrostomy Right Lower Quadrant Abdomen <1 [...] of MICU admission Barriers (more content not included)...[facility]05-20-2025 Radiology Diagnostic study note [facility] Imaging Services [address], [place] [address] Chest PA and Lateral MR#: [id number] Acct: [id number] Name: ITALO BURGOS Rep #: [id number] : 1970 M 54 From: Gallito Jack MD PCP: Dr. Zaida Gaston MD Status: REG E R Study:Chest PA and Lateral Date of Exam: 01/26/25 Exam# [id number] Ordering Dr: Yony Solis DO PROCEDURE: CHEST PA AND LATERAL 01/26/2025 REASON FOR EXAM: COUGH TECHNIQUE: Frontal and lateral views of the chest. COMPARISON: None. FINDINGS: Hardware: None. Heart: Heart size is mildly enlarged. Mediastinum: The mediastinal contour is unremarkable. Lungs: The lungs are clear. Bones: The bones are unremarkable. RAD/Chest PA and Lateral IMPRESSION: NO ACUTE FINDINGS. Reading Location: [place] [address] CC: Dr. Zaida Gaston MD; Dr. Yony Solis DO ~ Regional Administrative Assistant: Signed [facility]05-20-2025 Radiology Diagnostic study note [facility] Imaging Services [address], [place] [id number] Abdomen/Pelvis without Cont MR#: [id number] Acct: [id number] Name: ITALO BURGOS Rep #: [id number] : 1970 M 54 From: Gallito Jack MD PCP: Dr. Zaida Gaston MD Status: REG E R Study:Abdomen/Pelvis without Cont Date of Exa m: 01/26/25 Exam# [id number] Ordering Dr: Le,Yony DO PROCEDURE: ABDOMEN/PELVIS WITHOUT [...] surrounding inflammation. Adrenals: Normal. Kidneys: Severely atrophic [place] kidneys. Right pelvic transplanted kidney transplanted right kidney ureter 10 mm calculus with severe upstream hydroureteronephrosis. Transplant kidney perinephric stranding which may represent back pressure. Bladder: Markedly concentrically thickened wall. Reproductive Organs: Unremarkable Bowel: Appendix: Lymph nodes: Vasculature: Peritoneum / Retroperitoneum: Mild atherosclerosis. Small volume ascites. Bones: CT/Abdomen/Pelvis without Cont IMPRESSION: 1. Transplanted right kidney obstructing ureteral calculus with nyxwzlyt-cs-hkfjup upstream hydroureteronephrosis. 2. Severely thickened urinary bladder wall suspicious for cystitis. 3. Severely atrophic [place] kidneys. 4. Anasarca. 5. Small volume ascites. OVERALL FINAL ASSESSMENT: . LI-RADS is not meant to be used in patients <18 years or patients with cirrhosisdue to congenital hepatic fibrosis or due to vascular disorders, because these patients have a lower chance of developing HCC. Reading Location: [id number] CC: Dr. Zaida Gaston MD; Dr. Yony Solis DO ~ Regional Administrative Assistant: Signed [facility]04-30-2025 Telephone encounter Note* Telephone Encounter - Deep Hanson LPN - 01/06/2025 3:31 PM EDT Called and left message for patient to call office back for results. Deep Hanson LPN January 06, 2025 3:32 PM [facility]04-30-2025 Miscellaneous Notes* Telephone Encounter - Deep Hanson LPN - 01/06/2025 3:31 PM EDT Called and left message for patient to call office back for results. Deep HansonDIANNE January 06, 2025 3:32 PM * Telephone Encounter - 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 APRN.CNP - 01/06/2025 1:39 PM EDT Patient needs to reschedule missed appointment to review labs. Also check to see if he has rescheduled with his human capital manager as his Hgba1c is greater then 10 so diabetes is very uncontrolled at this time. Thank you 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 APRN.CNP documented in this encounter[facility] Center04-30-2025 Telephone encounter Note * Telephone Encounter - 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 APRN.CNP - 01/06/2025 1:39 PM EDT Patient needs to reschedule missed appointment to review labs. Also check to see if he has rescheduled with his human capital manager as his Hgba1c is greater then 10 so diabetes is very uncontrolled at this time. Thank you 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 APRN.CNP [facility]04-23-2025 NoteHNO ID: [id number] Author: DELIA KAUFMAN APRN.CNP Service: ? Author [...] [facility] and has to be seen to be [...] over a year ago. Needs to call [facility] to schedule. REVIEW OF SYSTEMS See HPI PAST MEDICAL HISTORY Diagnosis Date Acute diastolic (congestive) heart failure (HCC) Bronchitis Chronic kidney failure, stage 4 (severe) ([facility]) 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 ([facility]) 12/16/2018 Depression Detached retina DM type 2, goal HbA1c < 7% ([facility]) Erectile dysfunction, unspecified erectile dysfunction type ESRD (end stage renal disease) ([facility]) GERD (gastroesophageal reflux disease) Hyperlipidemia Kidney replaced by transplant Kidney stones LUANNE (obstructive sleep apnea) PNA (pneumonia) Proliferative retinopathy 02/10/2019 PTE (post-transplant erythrocytosis) Snoring Unspecified essential hypertension Vitamin D deficiency Vitamin D deficiency PAST SURGICAL HISTORY Procedure Laterality Date AMPUTATION TOE,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 Blood-Glucose Sensor (DEXCOM [...] lispro protamine-lispro units (more content not included)... [facility]01-20-2025 NoteHNO ID: [id number] Author: ZAIDA GASTON MD Service: ? Author [...] Diagnosis Date Acute diastolic (congestive) heart failure ([facility]) Bronchitis Chronic kidney failure, stage 4 (severe) ([facility]) 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 ([facility]) 12/16/2018 Depression Detached retina DM type 2, goal HbA1c < 7% ([facility]) Erectile dysfunction, unspecified erectile dysfunction type ESRD (end stage renal disease) ([facility]) GERD (gastroesophageal reflux disease) Hyperlipidemia Kidney replaced by transplant Kidney stones LUANNE (obstructive sleep apnea) PNA (pneumonia) Proliferative retinopathy 02/10/2019 PTE (post-transplant erythrocytosis) Snoring Unspecified essential hypertension Vitamin D deficiency Vitamin D deficiency PAST SURGICAL HISTORY Procedure Laterality Date AMPUTATION TOE,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 08/08/2018 Done at [facility] by Satish Phan MD CHOLECYSTECTOMY 1998 Cholecystectomy COLONOSCOPY 12/04/2018 COLONOSCOPY SCREENING 04/01/2024 CYSTO W/COMPLEX REMOVAL STONE AND STENT 1999 EGD 12/04/2018 EGD W/O [facility] SPEC VARICIES INJ 04/01/2024 PAST SURGICAL HISTORY [...] ergocalciferol 50,000 unit capsu (more content not included)...[facility]01-20-2025 History of Present illness Narrative* Zaida [...] Diagnosis Date Acute diastolic (congestive) heart failure ([facility]) Bronchitis Chronic kidney failure, stage 4 (severe) ([facility]) 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 ([facility]) 12/16/2018 Depression Detached retina DM type 2, goal HbA1c < 7% ([facility]) Erectile dysfunction, unspecified erectile dysfunction type ESRD (end stage renal disease) ([facility]) GERD (gastroesophageal reflux disease) Hyperlipidemia Kidney replaced by transplant Kidney stones LUANNE (obstructive sleep apnea) PNA (pneumonia) Proliferative retinopathy 02/10/2019 PTE (post-transplant erythrocytosis) Snoring Unspecified essential hypertension Vitamin D deficiency Vitamin D deficiency PAST SURGICAL HISTORY Procedure Laterality Date AMPUTATION TOE,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 08/08/2018 Done at [facility] by Satish Phan MD CHOLECYSTECTOMY 1998 Cholecystectomy COLONOSCOPY 12/04/2018 COLONOSCOPY SCREENING 04/01/2024 CYSTO W/COMPLEX REMOVAL STONE & STENT 1999 EGD 12/04/2018 EGD W/O [facility] SPEC VARICIES INJ 04/01/2024 PAST SURGICAL HISTORY [...] mg chewable tablet Blood-Glucose Meter,Continuous (DEXCOM G6 ATTENDANT CHILD ACTIVITY) misc Blood-Glucose Sensor (DEXCOM G6 SENSOR) glenn Blood-Glucose Transmitter (DEXCOM G6 TRANSMITTER) glenn Cholestyramine, Bulk, powd Insulin Syringe-Needle U-100 1 mL 29 gauge x 1/2 Insulin Dryden, Disposable, (BD ULTRA-FINE SANDRA PEN NEEDLE) 32 [...] RELEASE Zaida Gaston MD documented in this encounterUc [facility] Center01-07-2025 NoteHNO ID: [id number] Author: MATTY LEWIS MA Service: ? Author Type: Aircraft Shipping Checker Type: Progress Notes Filed: 09/15/2024 10:11 Note [...] or unnecessary to reach patient: Left message YuMingle message sent Navigation Signature: Matty Lewis MA September 15, 2024 10:09 [facility]01-07-2025 History of Present illness Narrative* Matty Lewis [...] or unnecessary to reach patient: Left message YuMingle message sent Navigation Signature: Matty Lewis MA [...] or unnecessary to reach patient: Left message YuMingle message sent Navigation Signature: Matty Lewis MA September 08, 2024 1:38 PM documented in this encounterUc Medical Center12-31-2024 NoteHNO ID: [id number] Author: MATTY LEWIS MA Service: ? Author Type: Aircraft Shipping Checker Type: Progress Notes Filed: 09/15/2024 10:11 Note [...] or unnecessary to reach patient: Left message YuMingle message sent Navigation Signature: Matty Lewis MA September 08, 2024 1:38 [facility]12-31-2024 NotePatient Outreach (NETNAV) ITALO BURGOS ([id number]) 1970 M Date Time Provider Department 09/08/24 [...] or unnecessary to reach patient: Left message YuMingle message sent Navigation Signature: Matty Lewis MA [...] or unnecessary to reach patient: Left message yaM Labshart message sent Navigation Signature: Matty Lewis MA September 15, 2024 10:09 AM Allergies As of Date: 09/08/2024 (No Known Allergies) Date Reviewed: 06/18/2024 Reviewed by: Deep Hanson LPN - Fully Assessed Reason for Visit: Population Health Navigation Outreach [3910] Cmt: [facility] Visit Diagnosis:Type 1 diabetes mellitus on insulin therapy (HCC) [E10.9] Order(s):ALBUMIN/CREATININE RATIO, URINE [SQUACR] Order #: [id number] FUTURE Prescriptions as of 09/15/2024 - pantoprazole [...] in pm - Blood-Glucose Meter,Continuous (DEXCOM G6 ATTENDANT CHILD ACTIVITY) misc 1 Each continuous. - Blood-Glucose Sensor [...] Units subcutaneously daily at bedtime. - Insulin Dryden, Disposable, (BD ULTRA-FINE SANDRA PEN NEEDLE) 32 [...] 3 mg/actuation nasal spray (BAQSIMI) Use 1 [place] in the nose as needed for low blood sugar. May repeat after 15 minutes using a new device if there is no response. - aspirin 81 mg chewable tablet chew and swallow 1 tablet by mouth once daily. - fluticasone (FLONASE) 50 mcg/actuation nasal spray Use 2 Sprays in each nostril once daily. - CPAP Initi (more content not included)...[facility]11-22-2024 Telephone encounter Note* Telephone Encounter - Monik Chinchilla MA - 07/31/2024 3:17 PM EST Faxed. [facility]11-22-2024 Miscellaneous Notes* Telephone Encounter - Monik Chinchilla [...] 31, 2024 1:14 PM documented in this encounterUc Medical Center11-22-2024 Telephone encounter Note * Telephone Encounter - [...] Murphy RN July 31, 2024 1:14 PM [facility]11-19-2024 Evaluation note* Diagnosis Onset Date Resolution Status Admit Date Diabetic nephropathy chronic [facility] 2023 10:37am Diabetic retinopathy [facility] 2023 10:37am Hypertension chronic July 10:37am Overweight chronic July 28, 2024 10:37am Type 2 diabetes mellitus wit h diabetic polyneuropathy chronic July 28, 2024 10:37am [facility] Work Phone: 1(150) 758-457411-04-2024 Miscellaneous Notes* Telephone Encounter - Torrie Moore [...] 13, 2024 3:19 PM documented in this encounterUc Medical Center11-04-2024 Telephone encounter Note * Telephone Encounter - [...] Moore LPN July 13, 2024 3:19 PM [facility]11-04-2024 NoteHNO ID: [id number] Author: MATTY LEWIS MA Service: ? Author Type: Aircraft Shipping Checker Type: Progress Notes Filed: 07/13/2024 13:24 Note [...] Matty Lewis MA July 13, 2024 9:39 [facility]11-04-2024 History of Present illness Narrative* Matty Lewis [...] 13, 2024 9:39 AM documented in this encounterUc Medical Center11-04-2024 NotePatient Outreach (NETNAV) LORETTAITALO ([id number]) 1970 M Date Time Provider Department 07/13/24 [...] Visit: Population Health Navigation Outreach [3910] Cmt: [facility] LUCIA MEI PCSA Prescriptions as of 07/13/2024 - tacrolimus IR (PROGRAF) 1 mg capsule Take 2 caps in am and 1 cap in pm - Blood-Glucose Meter,Continuous (DEXCOM G6 ATTENDANT CHILD ACTIVITY) misc 1 Each continuous. - Blood-Glucose Sensor [...] Units subcutaneously daily at bedtime. - Insulin Dryden, Disposable, (BD ULTRA-FINE SANDRA PEN NEEDLE) 32 [...] 3 mg/actuation nasal spray (BAQSIMI) Use 1 [place] in the nose as needed for low [...] [R31.29] 09/30/2014 Diabetic polyneu (more content not included)...[facility] 06-23-2024 Telephone encounter Note* Telephone Encounter - Amanda Hayes LISW - 06/23/2024 10:57 AM EDT SW returned pt's phone call. Pt stated his Envarsus went to $92 a month. Pt reports he still has [facility] Dual (Medicare & Medicaid) and he is not sure why his copay went up. SW informed pt that they can apply for assistance for envarsus via [employer]. SW emailed pt his portion of the [employer] application, as well as a 30 day copay card. SW will work on her portion of the application. Pt denies any other questions/concerns at this time. Pt has SW contact information for any future questions/concerns. SARA Sahu-[employer]ir[employer] [facility] Work Phone: [phone] Miscellaneous Notes* Telephone Encounter - Amanda Hayes LISW - 06/23/2024 10:57 AM EDT SW returned pt's phone call. Pt stated his Envarsus went to $92 a month. Pt reports he still has [facility] Dual (Medicare & Medicaid) and he is not sure why his copay went up. SW informed pt that they can apply for assistance for envarsus via [employer]. SW emailed pt his portion of the envarsus application, as well as a 30 day copay card. SW will work on her portion of the application. Pt denies any other questions/concerns at this time. Pt has SW contact information for any future questions/concerns. MATTHEW Sahu Trans[employer]ir[employer] Model documented in this encounterUc Medical Center10-10-2024 NoteHNO ID: [id number] Author: ZAIDA GASTON MD Service: ? Author [...] Diagnosis Date Acute diastolic (congestive) heart failure ([facility]) Bronchitis Chronic kidney failure, stage 4 (severe) ([facility]) 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 ([facility]) 12/16/2018 Depression Detached retina DM type 2, goal HbA1c < 7% ([facility]) Erectile dysfunction, unspecified erectile dysfunction type ESRD (end stage renal disease) ([facility]) GERD (gastroesophageal reflux disease) Hyperlipidemia Kidney replaced by transplant Kidney stones LUANNE (obstructive sleep apnea) PNA (pneumonia) Proliferative retinopathy 02/10/2019 PTE (post-transplant erythrocytosis) Snoring Unspecified essential hypertension Vitamin D deficiency Vitamin D deficiency PAST SURGICAL HISTORY Procedure Laterality Date AMPUTATION TOE,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 08/08/2018 Done at [facility] by Satish Phan MD CHOLECYSTECTOMY 1998 Cholecystectomy COLONOSCOPY 12/04/2018 COLONOSCOPY SCREENING 04/01/2024 CYSTO W/COMPLEX REMOVAL STONE AND STENT 1999 EGD 12/04/2018 EGD W/O [facility] SPEC VARICIES INJ 04/01/2024 PAST SURGICAL HISTORY [...] 1 mg capsule Blood-Glucose Meter,Continuous (DEXCOM G6 ATTENDANT CHILD ACTIVITY) misc Blood-Glucose Sensor (DEXCOM G6 SENSOR) glenn [...] mg chewable tablet fluticasone (more content not included)...[facility] History of Present illness Narrative* Zaida [...] Diagnosis Date Acute diastolic (congestive) heart failure ([facility]) Bronchitis Chronic kidney failure, stage 4 (severe) ([facility]) 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 ([facility]) 12/16/2018 Depression Detached retina DM type 2, goal HbA1c < 7% ([facility]) Erectile dysfunction, unspecified erectile dysfunction type ESRD (end stage renal disease) ([facility]) GERD (gastroesophageal reflux disease) Hyperlipidemia Kidney replaced by transplant Kidney stones LUANNE (obstructive sleep apnea) PNA (pneumonia) Proliferative retinopathy 02/10/2019 PTE (post-transplant erythrocytosis) Snoring Unspecified essential hypertension Vitamin D deficiency Vitamin D deficiency PAST SURGICAL HISTORY Procedure Laterality Date AMPUTATION TOE,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 08/08/2018 Done at [facility] by Satish Phan MD CHOLECYSTECTOMY 1998 Cholecystectomy COLONOSCOPY 12/04/2018 COLONOSCOPY SCREENING 04/01/2024 CYSTO W/COMPLEX REMOVAL STONE & STENT 1999 EGD 12/04/2018 EGD W/O [facility] SPEC VARICIES INJ 04/01/2024 PAST SURGICAL HISTORY [...] 1 mg capsule Blood-Glucose Meter,Continuous (DEXCOM G6 ATTENDANT CHILD ACTIVITY) misc Blood-Glucose Sensor (DEXCOM G6 SENSOR) glenn [...] 1 mL 29 gauge x 1/2 Insulin Dryden, Disposable, (BD ULTRA-FINE SANDRA PEN NEEDLE) 32 [...] hydration Zaida Gaston MD documented in this encounterUc Medical Center10-10-2024 Telephone encounter Note * Telephone Encounter - Amanda Hayes LISW - 06/18/2024 11:35 AM EDT SW attempted to call pt per request of TRIMMER OPERATOR [employer] KN[employer] regarding possible copay issues for Envarsus. In reviewing pt's chart is appears that pt has [facility] Dual (Medicare & Medicaid.) SW attempted to contact pt and SW left a message. SW will await return phone call. MATTHEW Sahu [employer] [facility] Work Phone: [phone]) [phone] Miscellaneous Notes* Telephone Encounter - Amanda Hayes LISW - 06/18/2024 11:35 AM EDT SW attempted to call pt per request of TRIMMER OPERATOR [employer] KNIFE regarding possible copay issues for Envarsus. In reviewing pt's chart is appears that pt has [facility] Dual (Medicare & Medicaid.) SW attempted to contact pt and SW left a message. SW will await return phone call. MATTHEW Sahu [employer] Model documented in this encounterUc Medical Center10-08-2024 Telephone encounter Note * Telephone Encounter - Alana Kent APRN.CNP - 06/16/2024 1:30 PM EDT Pt called stating he has been out of Envarsus x 1 week and is unable to afford co-pay. Will try switching to tacrolimus temporarily and discuss with social studies teacher if pt is eligible for patient assistance. Pt currently on 2.25 mg Envarsus will start tac 2 Alana Kent APRN.ANDRE' [facility]10-08-2024 Miscellaneous Notes* Telephone Encounter - Alana Kent APRN.CNP - 06/16/2024 1:30 PM EDT Pt called stating he has been out of Envarsus x 1 week and is unable to afford co-pay. Will try switching to tacrolimus temporarily and discuss with social studies teacher if pt is eligible for patient assistance. Pt currently on 2.25 mg Envarsus will start tac 2 Alana Kent APRN.[employer]IM[employer] OPERATOR [employer]' documented in this encounterUc Medical Center10-08-2024 Telephone encounter Note * Telephone Encounter - Ramya Hernandez - 06/16/2024 12:31 PM EDT Patient called regarding his Envarsus, He has been out for a week. His insurance is telling him it is a tier 4 medication and it is $100 of which he cannot afford. . Requesting a return call from the health coordinator. Please call Italo at [phone]. [facility] Work Phone: 1(263) 770-713110-08-2024 Miscellaneous Notes* Telephone Encounter - Ramya Hernandez - 06/16/2024 12:31 PM EDT Patient called regarding his Envarsus, He has been out for a week. His insurance is telling him it is a tier 4 medication and it is $100 of which he cannot afford. . Requesting a return call from the health coordinator. Please call Italo at [phone]. documented in this encounterUc Medical Center09-25-2024 History of Present illness Narrative* Verna Jensen RPh - 06/03/2024 12:02 PM EDT Primary Care Pharmacy Panel Management This patient has been identified through Specialty Integration/Value-Based Operations Diabetes ListReview by the primary care pharmacy team. Patient with Type 1 DM, will not place PharmD referral at this time. Verna Jensen RPh documented in this encounterUc Medical Center09-25-2024 NoteHNO ID: [id number] Author: VERNA JENSEN RPh Service: ? Author Type: Pharmacist Type: Progress Notes Filed: 06/03/2024 12:02 Note Text: Primary Care Pharmacy Panel Management This patient has been identified through Specialty Integration/Value-Based Operations Diabetes List Review by the primary care pharmacy team. Patient with Type 1 DM, will not place PharmD referral at this time. Verna Jensen [facility] NotePatient Outreach (PHMEWO) ITALO BURGOS ([id number]) 1970 M Date Time Provider Department 06/03/24 [...] of 06/03/2024 - Blood-Glucose Meter,Continuous (DEXCOM G6 ATTENDANT CHILD ACTIVITY) misc 1 Each continuous. - Blood-Glucose Sensor [...] Each as needed. For Intercavernal Injections - zmrhdanikh-numzxidkikkg-xmmoxkszqnf 30 MG - 1 MG - 10 [...] for every 40 >180 mg/dL) - Insulin Dryden, Disposable, (BD ULTRA-FINE SANDRA PEN NEEDLE) 32 [...] 3 mg/actuation nasal spray (BAQSIMI) Use 1 [place] in the nose as needed for low [...] dysfunction) [N52.9] 09/30/2014 (more content not included)... [facility] Telephone encounter Note* Telephone Encounter - 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 APRN.CNP - 05/18/2024 3:13 PM EDT Prescriptions printed and signed. Please send to [facility] too as requested Thank you 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 APRN.ANDRE [facility]09-09-2024 Miscellaneous Notes* Telephone Encounter - 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 APRN.CNP - 05/18/2024 3:13 PM EDT Prescriptions printed and signed. Please send to [employer] too as requested Thank you 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 APRN.[employer]IM[employer] O[employer] * Telephone Encounter - Josseline Murphy RN - 05/18/2024 1:32 PM EDT Patient calls and states that he uses Dexacom 6 and He needs vacuum system tester and sensor. Patient gets supplies for Wikirin. Patient had received previous Dexacom G6 order from Pharmacy. Patient has seen [facility] for diabetes. Josseline Murphy RN * Telephone [...] that he is using. Reports he contacted [employer] of his request for a new Dexcom [...] DME company for Dexcom, but then says [employer] will be faxing orders. [employer] is a DME company for Dexcom. Xiang Wilson MA * Telephone Encounter - Xi Moreno - 05/14/2024 10:11 AM EDT Italo is calling Zaida Gaston MD today to request the name of [employer] diabetic supply company for theDexcom G6 , patient will call them to have them fax the need for supplies, Please watch fax for this request from [employer] Patient has been identified by name and birthdate. Duration of symptoms: N/A Person calling: self Call patient at: on cell [phone] (home) [phone] (cell) Was an appointment scheduled: No Closing statement: Results or non-symptom based questions: Thank you for calling [facility], your call will be returned within the next business day. Xi Wilson documented in this encounterUc Medical Center09-09-2024 Telephone encounter Note * Telephone Encounter - Josseline Murphy RN - 05/18/2024 1:32 PM EDT Patient calls and states that he uses Dexacom 6 and He needs vacuum system tester and sensor. Patient gets supplies for Wikirin. Patient had received previous Dexacom G6 order from Pharmacy. Patient has seen [facility] [place] for diabetes. Josseline Murphy RN [facility]09-09-2024 Telephone encounter Note* Telephone Encounter - Monik Chinchilla MA - 05/18/2024 1:07 PM EDT Left message for return call. [facility] Telephone encounter Note* Telephone Encounter - 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 APRN.ANDRE - 05/18/2024 12:28 PM EDT No forms received. Can I print prescription for this and just fax? Also, I do not see previous order for this. Which dexcom has he been using and does he need sensors as well? Thank you Delia Kaufman APRN.ANDRE [facility]09-09-2024 Telephone encounter Note* Telephone Encounter - Kirti Rehman RN - 05/18/2024 11:35 AM EDT Patient requesting a new Dexcom meter. Reports lost his other one. Patient does have fingerstick glucometer currently, that he is using. Reports he contacted [employer] of his request for a new Dexcom and they were supposed to fax forms to PCP to complete and send back. Please call patient with any updates regarding this. Thank you. [facility]09-09-2024 Telephone encounter Note* Telephone Encounter - Xiang Wilson MA - 05/18/2024 10:24 AM EDT LM for patient to contact office to clarify what he is asking for. Below states he is asking for DME company for Dexcom, but then says [employer] will be faxing orders. [employer] is a DME company for Dexcom. Xiang Wilson MA [facility]09-05-2024 Telephone encounter Note* Telephone Encounter - Xi Moreno - 05/14/2024 10:11 AM EDT Italo is calling Zaida Gaston MD today to request the name of [employer] diabetic supply company for theDexcom G6 , patient will call them to have them fax the need for supplies, Please watch fax for this request from [employer] Patient has been identified by name and birthdate. Duration of symptoms: N/A Person calling: self Call patient at: on cell [phone] (home) [phone] (cell) Was an appointment scheduled: No Closing statement: Results or non-symptom based questions: Thank you for calling [facility], your call will be returned within the next business day. Xi Guntre [facility]07-24-2024 Attending History and physical note* Lali Raman [...] : 1970 REFERRING PHYSICIAN: Delia Kaufman [address] [facility] [address] CHIEF COMPLAINT: Patient presents with: Consult: Colonoscopy [...] has type 2 diabetes he follows with [facility], last appointment was 12/2023. Diabetes is uncontrolled most recent hemoglobin A1c was 10.2. Italo followed up with endocrinology today his hemoglobin A1c was 10.1. Dr. Durand increased his Trulicity but he is unsure to what dose. Italo has undergone prior endoscopy. Last EGD & colonoscopy in 11/[address] Raman at [facility] EGD Impression: - Normal esophagus. - [...] 1 Each as needed. For Intercavernal Injections ufatcxbeym-cwzwzfmtstua-shmuvnntdzs 30 MG - 1 MG - 10 [...] units for every 40 >180 mg/dL) Insulin Dryden, Disposable, (BD ULTRA-FINE SANDRA PEN NEEDLE) 32 [...] 3 mg/actuation nasal spray (BAQSIMI) Use 1 [place] in the nose as needed for low [...] Diagnosis Date Acute diastolic (congestive) heart failure ([facility]) Bronchitis Chronic kidney failure, stage 4 (severe) ([facility]) 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 ([facility]) 12/16/2018 Depression Detached retina DM type 2, goal HbA1c < 7% ([facility]) Erectile dysfunction, unspecified erectile dysfunction type ESRD (end stage renal disease) ([facility]) GERD (gastroesophageal reflux disease) Hyperlipidemia Kidney replaced by transplant Kidney stones LUANNE (obstructive sleep apnea) PNA (pneumonia) Proliferative retinopathy 02/10/2019 PTE (post-transplant erythrocytosis) Snoring Unspecified essential hypertension Vitamin D deficiency Vitamin D deficiency PAST SURGICAL HISTORY PAST SURGICAL HISTORY Procedure Laterality Date AMPUTATION TOE,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 Nia James APRN.TRIMMER OPERATOR [employer] KN[employer] [facility]07-24-2024 History and physical note* Lali Raman MD - 04/01/2024 12:30 PM EDT HISTORY AND PHYSICAL Italo Burgos : 1970 REFERRING PHYSICIAN: Delia Kaufman [address] [facility] [address] CHIEF COMPLAINT: Patient presents with: Consult: Colonoscopy [...] has type 2 diabetes he follows with [facility], last appointment was 12/2023. Diabetes is uncontrolled most recent hemoglobin A1c was 10.2. Italo followed up with endocrinology today his hemoglobin A1c was 10.1. Dr. Durand increased his Trulicity but he is unsure to what dose. Italo has undergone prior endoscopy. Last EGD & colonoscopy in 11/[address] Raman at [facility] EGD Impression: - Normal esophagus. - [...] 1 Each as needed. For Intercavernal Injections zuzmlbvqfi-hxpdnwawfyxe-uoelrwrwwdc 30 MG - 1 MG - 10 [...] units for every 40 >180 mg/dL) Insulin [place], Disposable, (BD ULTRA-FINE SANDRA PEN NEEDLE) 32 [...] 3 mg/actuation nasal spray (BAQSIMI) Use 1 [place] in the nose as needed for low [...] Diagnosis Date Acute diastolic (congestive) heart failure ([facility]) Bronchitis Chronic kidney failure, stage 4 (severe) ([facility]) 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 ([facility]) 12/16/2018 Depression Detached retina DM type 2, goal HbA1c < 7% ([facility]) Erectile dysfunction, unspecified erectile dysfunction type ESRD (end stage renal disease) ([facility]) GERD (gastroesophageal reflux disease) Hyperlipidemia Kidney replaced by transplant Kidney stones LUANNE (obstructive sleep apnea) PNA (pneumonia) Proliferative retinopathy 02/10/2019 PTE (post-transplant erythrocytosis) Snoring Unspecified essential hypertension Vitamin D deficiency Vitamin D deficiency PAST SURGICAL HISTORY PAST SURGICAL HISTORY Procedure Laterality Date AMPUTATION TOE,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 Nia James APRN.TRIMMER OPERATOR THREE KNIFE [facility]07-24-2024 History and physical note* Lali Raman MD [...] : 1970 REFERRING PHYSICIAN: Delia Kaufman [address] [facility] [address] CHIEF COMPLAINT: Patient presents with: Consult: Colonoscopy [...] has type 2 diabetes he follows with [facility], last appointment was 12/2023. Diabetes is uncontrolled most recent hemoglobin A1c was 10.2. Italo followed up with endocrinology today his hemoglobin A1c was 10.1. Dr. Durand increased his Trulicity but he is unsure to what dose. Italo has undergone prior endoscopy. Last EGD & colonoscopy in 11/[address] Raman at [facility] EGD Impression: - Normal esophagus. - [...] 1 Each as needed. For Intercavernal Injections oupsyjcfka-ebyyebqwcrop-ryukybqguuc 30 MG - 1 MG - 10 [...] units for every 40 >180 mg/dL) Insulin [place], Disposable, (BD ULTRA-FINE SANDRA PEN NEEDLE) 32 [...] 3 mg/actuation nasal spray (BAQSIMI) Use 1 [place] in the nose as needed for low [...] Diagnosis Date Acute diastolic (congestive) heart failure ([facility]) Bronchitis Chronic kidney failure, stage 4 (severe) ([facility]) 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 ([facility]) 12/16/2018 Depression Detached retina DM type 2, goal HbA1c < 7% ([facility]) Erectile dysfunction, unspecified erectile dysfunction type ESRD (end stage renal disease) ([facility]) GERD (gastroesophageal reflux disease) Hyperlipidemia Kidney replaced by transplant Kidney stones LUANNE (obstructive sleep apnea) PNA (pneumonia) Proliferative retinopathy 02/10/2019 PTE (post-transplant erythrocytosis) Snoring Unspecified essential hypertension Vitamin D deficiency Vitamin D deficiency PAST SURGICAL HISTORY PAST SURGICAL HISTORY Procedure Laterality Date AMPUTATION TOE,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 Nia James APRN.TRIMMER OPERATOR THREE KNIFE * Lali Raman MD - 04/01/2024 12:30 PM EDT HISTORY AND PHYSICAL Italo Burgos : 1970 REFERRING PHYSICIAN: Delia Galvin [facility] [address] CHIEF COMPLAINT: Patient presents with: Consult: Colonoscopy [...] has type 2 diabetes he follows with [facility], last appointment was 12/2023. Diabetes is uncontrolled most recent hemoglobin A1c was 10.2. Italo followed up with endocrinology today his hemoglobin A1c was 10.1. Dr. Durand increased his Trulicity but he is unsure to what dose. Italo has undergone prior endoscopy. Last EGD & colonoscopy in 11/[address] Raman at [facility] EGD Impression: - Normal esophagus. - [...] 1 Each as needed. For Intercavernal Injections ddkvnogvza-utoxwyyjsyzw-hjypunfnkaz 30 MG - 1 MG - 10 [...] units for every 40 >180 mg/dL) Insulin [place], Disposable, (BD ULTRA-FINE SANDRA PEN NEEDLE) 32 [...] 3 mg/actuation nasal spray (BAQSIMI) Use 1 [place] in the nose as needed for low [...] Bronchitis Chronic kidney failure, stage 4 (severe) ([facility]) 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 ([facility]) 12/16/2018 Depression Detached retina DM type 2, [...] SHUNT FOR DIALYSIS Right 08/08/2018 Done at [facility] by Satish Phan MD CHOLECYSTECTOMY 1998 Cholecystectomy [...] entered by the nurse and reviewed by ny Nursing Notes: Winifred Yeung RN 03/24/2024 4:12 [...] edited and updated as necessary. Nia James APRN.TRIMMER OPERATOR THREE KNIFE documented in this encounterUc Medical Center07-24-2024 Telephone encounter Note * Telephone Encounter - Anita Manriquez MA - 04/01/2024 12:17 PM EDT Images from the original note were not included. Lali Raman MD One large container thanks (wasn't able to state that in [facility]) Pharmacy notified. Anita Manriquez MA [facility]07-24-2024 Miscellaneous Notes* Telephone Encounter - Anita Manriquez MA - 04/01/2024 12:17 PM EDT Images from the original note were not included. Lali Raman MD One stewart bedolla (wasn't able to state that in [facility]) Pharmacy notified. Anita Manriquez MA * Telephone Encounter - Anita Manriquez MA - 04/01/2024 11:58 AM EDT [facility] pharmacy calling to check on the quantity for the Cholestyramine that was ordered.States 1G. Is patient to take daily for a certain amount of time? Do you want him to packets or large container? [phone] Khurram, the pharmacist is calling to verify. Please review and advise. Anita Manriquez MA documented in this encounterUc Medical Center07-24-2024 Telephone encounter Note * Telephone Encounter - Anita Manriquez MA - 04/01/2024 11:58 AM EDT [facility] pharmacy calling to check on the quantity for the Cholestyramine that was ordered.States 1G. Is patient to take daily for a certain amount of time? Do you want him to packets or large container? [phone] Khurram, the pharmacist is calling to verify. Please review and advise. Anita Manriquez MA [facility]07-16-2024 Nurse Note* Winifred Yeung RN - 03/24/2024 4:46 PM EDT This Nurse reviewed and provided patient with copy of written instructions and education on EGD andcolonoscopy. The patient verbalized understanding and was given a number for questions. Winifred Yeung RN March 24, 2024 4:47 PM [facility]07-16-2024 Nurse Note* Winifred Yeung RN - 03/24/2024 [...] 12/04/2018 Winifred Yeung RN documented in this encounterUc Medical Center07-16-2024 Nurse Note* Winifred Yeung RN - 03/24/2024 [...] N/A Last Colonoscopy: 12/04/2018 Winifred Yeung RN [facility]07-16-2024 History of Present illness Narrative* Nia James APRN.TRIMMER OPERATOR THREE KNIFE - 03/24/2024 4:00 PM EDT HISTORY AND PHYSICAL Italo Burgos : 1970 REFERRING PHYSICIAN: Delia Kaufman [address] [facility] [address] CHIEF COMPLAINT: Patient presents with: Consult: Colonoscopy [...] has type 2 diabetes he follows with [facility], last appointment was 12/2023. Diabetes is uncontrolled most recent hemoglobin A1c was 10.2. Italo followed up with endocrinology today his hemoglobin A1c was 10.1. Dr. Durand increased his Trulicity but he is unsure to what dose. Italo has undergone prior endoscopy. Last EGD & colonoscopy in 11/[address] Raman at [facility] EGD Impression: - Normal esophagus. - [...] 1 Each as needed. For Intercavernal Injections dryyguxvzj-nfijgqkhbxnm-pqrkbeafokv 30 MG - 1 MG - 10 [...] units for every 40 >180 mg/dL) Insulin Dryden, Disposable, (BD ULTRA-FINE SANDRA PEN NEEDLE) 32 [...] 3 mg/actuation nasal spray (BAQSIMI) Use 1 [place] in the nose as needed for low [...] Diagnosis Date Acute diastolic (congestive) heart failure ([facility]) Bronchitis Chronic kidney failure, stage 4 (severe) ([facility]) 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 ([facility]) 12/16/2018 Depression Detached retina DM type 2, goal HbA1c < 7% ([facility]) Erectile dysfunction, unspecified erectile dysfunction type ESRD (end stage renal disease) ([facility]) GERD (gastroesophageal reflux disease) Hyperlipidemia Kidney replaced by transplant Kidney stones LUANNE (obstructive sleep apnea) PNA (pneumonia) Proliferative retinopathy 02/10/2019 PTE (post-transplant erythrocytosis) Snoring Unspecified essential hypertension Vitamin D deficiency Vitamin D deficiency PAST SURGICAL HISTORY Procedure Laterality Date AMPUTATION TOE,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 Nia James APRN.TRIMMER OPERATOR THREE KNIFE documented in this encounterUc Medical Center07-10-2024 History of Present illness Narrative* Delia Kaufman APRN.TRIMMER OPERATOR THREE KNIFE - 03/18/2024 5:44 PM EDT Chief Complaint [...] SHUNT FOR DIALYSIS Right 08/08/2018 Done at [facility] by Satish Phan MD CHOLECYSTECTOMY 1998 Cholecystectomy [...] 1 Each as needed. For Intercavernal Injections jmetesasjy-hwfcvrzkdyiz-mmosnicgigq 30 MG - 1 MG - 10 [...] units for every 40 >180 mg/dL) Insulin Dryden, Disposable, (BD ULTRA-FINE SANDRA PEN NEEDLE) 32 [...] 3 mg/actuation nasal spray (BAQSIMI) Use 1 [place] in the nose as needed for low [...] - Instructed patient to contact office or plkqi-kr-ounn after-hours promptly should condition worsen or any new symptoms appear. - [facility] and after hours crisis line Prescription instructions reviewed with patient as applicable. Potential red flag symptoms discussed with the patient. Reviewed appropriate action plan to take if red flag symptoms occur. Patient agreeable to treatment plan Delia Kaufman APRN.CNP documented in this encounterUc Medical Center06-19-2024 Telephone encounter Note * Telephone Encounter - Kirti Rehman RN - 02/26/2024 2:40 PM EDT Octavia with [employer] [facility] calling and requesting patient's most recent office visit note to be faxed to them for processing of patient's Dexcom CGM. Faxed as requested to [phone]. Thank you. [facility] Miscellaneous Notes* Telephone Encounter - Kirti Rehman RN - 02/26/2024 2:40 PM EDT Octavia with [facility] calling and requesting patient's most recent office visit note to be faxed to them for processing of patient's Dexcom CGM. Faxed as requested to [phone]. Thank you. documented in this encounterUc Medical Center05-15-2024 History of Present illness Narrative* Delia Kaufman APRN.TRIMMER OPERATOR [employer] KNIFE - 01/22/2024 4:43 PM EDT CC: Patient [...] Diagnosis Date Acute diastolic (congestive) heart failure ([facility]) Bronchitis Chronic kidney failure, stage 4 (severe) ([facility]) 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 ([facility]) 12/16/2018 Depression Detached retina DM type 2, goal HbA1c < 7% ([facility]) Erectile dysfunction, unspecified erectile dysfunction type ESRD (end stage renal disease) ([facility]) GERD (gastroesophageal reflux disease) Hyperlipidemia Kidney replaced by transplant Kidney stones LUANNE (obstructive sleep apnea) PNA (pneumonia) Proliferative retinopathy 02/10/2019 PTE (post-transplant erythrocytosis) Snoring Unspecified essential hypertension Vitamin D deficiency Vitamin D deficiency PAST SURGICAL HISTORY Procedure Laterality Date AMPUTATION TOE,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 For Intercavernal Injections uhaskidpzt-pbhkywqglrui-qfhbeethweg 30 MG - 1 MG - 10 [...] units for every 40 >180 mg/dL) Insulin Dryden, Disposable, (BD ULTRA-FINE SANDRA PEN NEEDLE) 32 [...] 3 mg/actuation nasal spray (BAQSIMI) Use 1 [place] in the nose as needed for low [...] fluoxetine - Reviewed concept of neurochemical imbalance [facility] depression/anxiety, treatment options and benefits of counseling in combination with medication. Also reviewed benefits of sleep hygeine, diet and exercise - Follow-up in 6 weeks or sooner as needed - Instructed patient to contact office or petya-cw-vdfv after-hours promptly should condition worsen or any new symptoms appear. - [facility] and after hours crisis line 3. Hypertension [...] plan. Delia Kaufman APRN.CNP documented in this encounterUc Medical Center05-08-2024 Telephone encounter Note * Telephone Encounter - Kathrine Logan LPN - 01/15/2024 10:58 AM EDT Rec'd covermymeds PA for pantoprazole. Requested electronic PA and response is this is covered. No PA is needed. Pharmacy notified. [facility] Miscellaneous Notes* Telephone Encounter - Kathrine Logan LPN - 01/15/2024 10:58 AM EDT Rec'd covermymeds PA for pantoprazole. Requested electronic PA and response is this is covered. No PA is needed. Pharmacy notified. documented in this encounterUc Medical Center05-08-2024 History of Present illness Narrative* Rosi Mcdonald [...] Provider. Tammie Gomez RN documented in this encounterUc Medical Center05-06-2024 History of Present illness Narrative* Chyna Conroy PA-C - 01/13/2024 1:30 PM EDT [facility] Follow up Portions of this note [...] Having slow graft function 03/25/22: Admitted to [facility] 2/2 osteomyelitis s/p amputation of fifth [...] x 2. Not compliant with labs/biopsies. Local Cable Operator: Dr. Montiel Lab Frequency: Monthly Home [...] 1 Each as needed. For Intercavernal Injections kwiasawtxc-awratsestywo-bgjzxmwgjjb 30 MG - 1 MG - 10 [...] units for every 40 >180 mg/dL) Insulin Dryden, Disposable, (BD ULTRA-FINE SANDRA PEN NEEDLE) 32 [...] 3 mg/actuation nasal spray (BAQSIMI) Use 1 [place] in the nose as needed for low [...] complexity. Chyna Conroy PA-C documented in this encounterUc Medical Center04-05-2024 Miscellaneous Notes* Telephone Encounter - Steve Mota [...] you. Steve Mota MA. documented in this encounterUc Medical Center03-20-2024 Miscellaneous Notes* Telephone Encounter - Conchis Sheets [...] advise. Conchis Sheets RN documented in this encounterUc Medical Center03-19-2024 History of Present illness Narrative* Xiang Perez [...] does note he will be headed to [place] this Saturday. Denies any fevers/chills, body aches, or any other systemic symptoms. States that when he has half a sandwich from [employer] and it passes right through him. Has [...] DM type 2, goal HbA1c < 7% ([facility]) Erectile dysfunction, unspecified erectile dysfunction type ESRD (end stage renal disease) ([facility]) GERD (gastroesophageal reflux disease) Hyperlipidemia Kidney replaced by transplant Kidney stones LUANNE (obstructive sleep apnea) PNA (pneumonia) Proliferative retinopathy 02/10/2019 PTE (post-transplant erythrocytosis) Snoring Unspecified essential hypertension Vitamin D deficiency Vitamin D deficiency PAST SURGICAL HISTORY Procedure Laterality Date AMPUTATION TOE,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 08/08/2018 Done at [facility] by Satish Phan MD CHOLECYSTECTOMY 1998 Cholecystectomy COLONOSCOPY 12/04/2018 CYSTO W/COMPLEX REMOVAL STONE & STENT 1999 EGD 12/04/2018 PAST SURGICAL HISTORY OF Left 2012 & 2014 removal eye fluid with instillation oil ALLERGIES Patient has no known allergies. MEDICATIONS Insulin Syringe-Needle U-100 1 mL 29 gauge x 1/2 1 Each as needed. For Intercavernal Injections gofukwlnvr-bcfpcuedpilj-wdyfxtlaext 30 MG - 1 MG - 10 [...] units for every 40 >180 mg/dL) Insulin [place], Disposable, (BD ULTRA-FINE SANDRA PEN NEEDLE) 32 [...] 3 mg/actuation nasal spray (BAQSIMI) Use 1 [place] in the nose as needed for low [...] plan. Xiang Perez PA-C documented in this encounterUc Medical Center03-18-2024 Miscellaneous Notes* Telephone Encounter - Silvano Munoz [...] 13. : N/A Protocols used: Diarrhea on Zsbbxzsbltk-YEYOY-YI documented in this encounterUc Medical Center02-21-2024 Miscellaneous Notes* Telephone Encounter - Monik Chinchilla Ma - 10/30/2023 7:04 PM EST Form received and faxed as requested. * Telephone Encounter - Monik Chinchilla Ma - 10/30/2023 4:28 PM EST No forms received. * Telephone Encounter - Josseline Murphy RN - 10/30/2023 3:34 PM EST Mary from [facility]-DME provider (Dexcom G-[email or web address]) calls and asking if provider received fax message requesting chart notes that was sent on 10/24. Asking if chart notes can be faxed to [phone]. Called and left message for patient to call back and speak with a triage nurse regarding this and if this was patient requested. Josseline Murphy RN documented in this encounterUc Medical Center02-20-2024 Miscellaneous Notes* Telephone Encounter - Chyna Mak RN - 10/29/2023 1:11 PM EST JORDY 08/20/2023 NOV none scheduled Patient requesting refills as follows: Requested Prescriptions Pending Prescriptions Disp Refills Insulin Syringe-Needle U-100 1 mL 29 gauge x 1/2 20 Each 3 Si Each as needed. For Intercavernal Injections Please review and advise. Chyna Mak RN documented in this encounterUc Medical Center02-05-2024 Miscellaneous Notes* Telephone Encounter - Justine Boyle [...] you. Justine Boyle RN. documented in this encounterUc Medical Center02-02-2024 Miscellaneous Notes* Telephone Encounter - Josseline Murphy RN - 10/11/2023 11:10 AM EST Patient calls and states that prescription was cancelled. Patient uses [facility] and not [facility]. Patient has been identified by name and [...] you. Josseline Murphy RN. documented in this encounterUc Medical Center01-10-2024 History of Present illness Narrative* Delia Kaufman APRN.TRIMMER OPERATOR THREE KNIFE - 09/18/2023 2:48 PM EST CC: Patient [...] a year ago but has appointment with [facility] at the end of this month. HTN: [...] Bronchitis Chronic kidney failure, stage 4 (severe) ([facility]) 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 ([facility]) 12/16/2018 Depression Detached retina DM type 2, goal HbA1c < 7% ([facility]) Erectile dysfunction, unspecified erectile dysfunction type ESRD (end stage renal disease) ([facility]) GERD (gastroesophageal reflux disease) Hyperlipidemia Kidney replaced by transplant Kidney stones LUANNE (obstructive sleep apnea) PNA (pneumonia) Proliferative retinopathy 02/10/2019 PTE (post-transplant erythrocytosis) Snoring Unspecified essential hypertension Vitamin D deficiency Vitamin D deficiency PAST SURGICAL HISTORY Procedure Laterality Date AMPUTATION TOE,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 08/08/2018 Done at [facility] by Satish Phan MD CHOLECYSTECTOMY 1998 Cholecystectomy COLONOSCOPY 12/04/2018 CYSTO W/COMPLEX REMOVAL STONE & STENT 1999 EGD 12/04/2018 PAST SURGICAL HISTORY OF Left 2012 & 2014 removal eye fluid with instillation oil ALLERGIES Patient has no known allergies. MEDICATIONS sulfamethoxazole-trimethoprim (BACTRIM) 400-80 mg per tablet Take 1 tablet by mouth every Saturday, Saturday, and Saturday. kwjpzrusvr-ghejgzouiykn-cfzleyqzlgj 15 MG - 0.5 MG - 5 [...] 2 tablets by mouth once daily. Insulin Dryden, Disposable, (BD ULTRA-FINE SANDRA PEN NEEDLE) 32 [...] 3 mg/actuation nasal spray (BAQSIMI) Use 1 [place]port in the nose as needed for low [...] - Instructed patient to contact office or [id number] after-hours promptly should condition worsen or any new symptoms appear. - [facility] and after hours crisis line 5. LUANNE (obstructive sleep apnea) - ICD9: 327.23, ICD10: G47.33 Does not use cpap at this time, reports being asymptomatic Prescription instructions reviewed with patient as applicable. Potential red flag symptoms discussed with the patient. Reviewed appropriate action plan to take if red flag symptoms occur. Patient agreeable to treatment plan. Delia Kaufman APRN.CNP documented in this encounterUc Medical Center12-21-2023 Miscellaneous Notes* Telephone Encounter - Monik Chinchilla Ma - 08/29/2023 7:14 AM EST Form faxed. * Telephone Encounter - Delia Kaufman APRN.CNP - 08/29/2023 6:50 AM EST Form filled out. Please fax as requested. Thank you Delia Kaufman APRN.CNP * Telephone Encounter - Xiang Wilson MA - 08/27/2023 9:21 AM EST Fax received from [employer] requesting renewal for CGM and supplies. Form partially completed and placed on Delia's desk for review. Once signed, please fax to [phone]. Xiang Wilson MA documented in this encounterUc Medical Center12-14-2023 Miscellaneous Notes* Telephone Encounter - Dona Kaiser RN - 08/22/2023 2:45 PM EST Called pt. Pt. States he used 20 units Rates it 5 out of 10 Not firm enough for penetration Lasted about 30 minutes Denies pain. documented in this encounterUc Medical Center12-12-2023 History of Present illness Narrative* Oscar Mas PA-C - 08/20/2023 4:17 PM EST Images from the original note were not included. 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 Insulin Dryden, Disposable, (BD ULTRA-FINE SANDRA PEN NEEDLE) 32 [...] 3 mg/actuation nasal spray (BAQSIMI) Use 1 [place]port in the nose as needed for low [...] POINTS: Survival Skills: History of Drug and glass products inspector effects reviewed with patient. yes Discussed with [...] CHRISTIANSON In Department: UROLOGY documented in this encounterUc Medical Center12-05-2023 History of Present illness Narrative* Oscar Mas PA-C - 08/13/2023 4:44 PM EST Images from the original note were not included. [facility] [...] teaching appointment I will send Rxs to [facility] and He will call to have [...] 2 tablets by mouth once daily. Insulin Dryden, Disposable, (BD ULTRA-FINE SANDRA PEN NEEDLE) 32 [...] 3 mg/actuation nasal spray (BAQSIMI) Use 1 Northport in the nose as needed for low [...] Diagnosis Date Acute diastolic (congestive) heart failure ([facility]) Bronchitis Chronic kidney failure, stage 4 (severe) ([facility]) 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 ([facility]) 12/16/2018 Depression Detached retina DM type 2, goal HbA1c < 7% ([facility]) Erectile dysfunction, unspecified erectile dysfunction type ESRD (end stage renal disease) ([facility]) GERD (gastroesophageal reflux disease) Hyperlipidemia Kidney replaced by transplant Kidney stones LUANNE (obstructive sleep apnea) PNA (pneumonia) Proliferative retinopathy 02/10/2019 PTE (post-transplant erythrocytosis) Snoring Unspecified essential hypertension Vitamin D deficiency Vitamin D deficiency PAST SURGICAL HISTORY: PAST SURGICAL HISTORY Procedure Laterality Date AMPUTATION TOE,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 08/08/2018 Done at [facility] by Satish Phan MD CHOLECYSTECTOMY 1998 Cholecystectomy [...] with Friends and Family: Patient refused Attends Gnosticism Services: Patient refused Active Member of Clubs [...] Negative Negative Ketones, Urine Negative Negative Specific Perrin, Ur 1.024 1.005 - 1.030 Hemoglobin/Blood,Ur Negative [...] 4.00 k/uL Monocytes % 7.7 % Abs Bullitt 0.55 <0.87 k/uL Eosinophils % 0.6 % [...] min, > Rx sent for Bi-Mix to [facility] he will call and arrange payment and shipping > MUST bring medication for teaching appointment KECIA Larson, MT, ROMULO documented in this encounterUc Medical Center12-05-2023 Instructions* Patient Instructions* Oscar Mas PA-C - 08/13/2023 4:41 PM EST > Schedule patient for Penile Injection Teaching appt for 6 min slot Once made I need to know so I can order Medication to be sent at the time prior to his appointment KECIA Larson, MEGHAN, ROMULO documented in this encounterUc Medical Center11-11-2023 Miscellaneous Notes* Telephone Encounter - Lashae Perry [...] advise. Lashae Perry RN documented in this encounterUc Medical Center11-06-2023 History of Present illness Narrative* Alana Kent APRN.TRIMMER OPERATOR THREE KNIFE - 07/15/2023 2:18 PM EST [facility] Transplant Follow up Portions of this note [...] mild. Arteriolar hyalinosis, focal. 1 yr: Local Cable Operator: Dr. Montiel Lab Frequency: Monthly Home [...] units for every 40 >180 mg/dL) Insulin Dryden, Disposable, (BD ULTRA-FINE SANDRA PEN NEEDLE) 32 [...] 3 mg/actuation nasal spray (BAQSIMI) Use 1 [place] in the nose as needed for low [...] decision making of high complexity. Alana Kent APRN.TRIMMER OPERATOR THREE KNIFE documented in this encounterUc Medical Center10-23-2023 Miscellaneous Notes* Telephone Encounter - Shakira Bianchi [...] you. Shakira Bianchi. * Telephone Encounter - [place] Caren Valles - 07/01/2023 1:45 PM EDT Patient has been identified by name and date of : Yes Requested Prescriptions Pending Prescriptions Disp Refills pantoprazole DR (PROTONIX) 20 mg tablet 90 tablet 3 Sig: Take 1 tablet by mouth once daily. RX INSTRUCTIONS: Per patient, he is now using [facility]. Please send a new prescription. Patient aware RX will be sent to pharmacy. No need to notify patient. Caren Valles documented in this encounterUc Medical Center09-12-2023 History of Present illness Narrative* Xiang Perez [...] 35 mg/dL Total Cholesterol: 189 mg/dL Local scorer single, 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 PAST MEDICAL HISTORY Diagnosis Date Acute diastolic (congestive) heart failure (HCC) Bronchitis Chronic kidney failure, stage 4 (severe) (HCC) 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 ([facility]) 12/16/2018 Depression Detached retina DM type 2, goal HbA1c < 7% (HCC) ESRD (end stage renal disease) (HCC) GERD (gastroesophageal reflux disease) Hyperlipidemia Kidney stones LUANNE (obstructive sleep apnea) PNA (pneumonia) Proliferative retinopathy 02/10/2019 Snoring Unspecified essential hypertension Vitamin D deficiency PAST SURGICAL HISTORY Procedure Laterality Date AMPUTATION TOE,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 08/08/2018 Done at [facility] by Satish Phan MD CHOLECYSTECTOMY 1998 Cholecystectomy [...] tablet by mouth q 24 HR. Insulin Dryden, Disposable, (BD ULTRA-FINE SANDRA PEN NEEDLE) 32 [...] 3 mg/actuation nasal spray (BAQSIMI) Use 1 [place] in the nose as needed for low [...] plan. Xiang Perez PA-C documented in this encounterUc Medical Center08-02-2023 Miscellaneous Notes* Result Encounter Note - Olivia Maxwell APRN.TRIMMER OPERATOR THREE KNIFE - 04/10/2023 1:11 PM EDT Xiang, patient has an appointment 05/28 with you, ultrasound looks stable, no DVT, no other issues. Wanted to pass along to you for review with the appointment. documented in this encounterUc Medical Center07-26-2023 Miscellaneous Notes* Telephone Encounter - Svetlana Manjarrez MD - 04/03/2023 2:07 PM EDT Will get RX with more refills at follow up appointment with Xiang in May * Telephone Encounter - Allyssa Camacho - 04/03/2023 12:11 PM EDT Pharmacy verified in [facility] Patient has been identified by [...] Please advise. Allyssa Valles documented in this encounterUc Medical Center07-06-2023 History of Present illness Narrative* Lg Link MD - 03/14/2023 6:51 AM EDT patient at outside ED, low blood glucose, SCr elevated 1.9 mg/dl, similar to previous, will repeat labs, allogen and cell free dna, may need bx, keep clinic f/u 04/10/23 Lg Link MD documented in this encounterUc Medical Center07-06-2023 Discharge summary Author Loi Saldana [facility] March 14, 2023 7:08am Note Date/Time March 13, 2023 10:40 pm [facility] Medical Records Department [address] [place] [address] Emergency Department Summary 03/13/23 MR#: [id number] Acct: [id number] Name: ITALO BURGOS Rep #:[id number] : 1970 52 From: Loi Les CLAIRE [...] than some generalized weakness. He states his scorer single is Dr. Montiel. He states that he been eatingand drinking normally. Making normal urine and stool and has not had any issues. He states he ate a hotdog macaroni and cheese for dinner. [facility] Medical History Acute hypoxemic respiratory failure Acute on chronic diastolic CHF (congestive heart failure) Acute respiratory failure with hypoxia ILDA (acute kidney injury) Anasarca associated with disorder of kidney Anemia of chronic renal failure, stage 4 (severe) Anxiety and depression Atherosclerotic heart disease of [place] coronary artery without angina pectoris Autonomic [...] she follows with the transplant team at [facility] typically on an outpatient basis. She [...] have some special lab work done at [facility] on Saturday that has to be done there because it specialized in the only place where they can do it. After this he can get his blood work drawn at any [facility] facility for the next 4 weeks. [...] % (Auto) 67.1 Lymph % (Auto) 22.5 Bullitt % (Auto) 9.0 Eos % (Auto) 0.8 [...] Clarity Clear Urine pH 5.0 Ur Specific Perrin 1.020 Urine Protein 30 H Urine Glucose [...] (Auto) Neut % (Auto) Lymph % (Auto) Bullitt % (Auto) Eos % (Auto) Baso % [...] Color Urine Clarity Urine pH Ur Specific Perrin Urine Protein Urine Glucose (UA) Urine Ketones [...] (Auto) Neut % (Auto) Lymph % (Auto) Bullitt % (Auto) Eos % (Auto) Baso % [...] Color Urine Clarity Urine pH Ur Specific Perrin Urine Protein Urine Glucose (UA) Urine Ketones [...] (Auto) Neut % (Auto) Lymph % (Auto) Bullitt % (Auto) Eos % (Auto) Baso % [...] Color Urine Clarity Urine pH Ur Specific Perrin Urine Protein Urine Glucose (UA) Urine Ketones [...] your Primary Care Provider. Call [facility] ([phone]) or report to the closest Emergency Room. Call 911 if necessary. 03/14/23 0708 <Electronically signed by Loi Saldaan DO> Cosigner Signature (if applicable): CC: Dr. Zaida Gaston MD ~ Signed [facility] Work Phone: 1(938) 427-764106-19-2023 History of Present illness Narrative* Zaida Gaston [...] SHUNT FOR DIALYSIS Right 08/08/2018 Done at [facility] by Satish Phan MD CHOLECYSTECTOMY 1998 Cholecystectomy [...] (VITAMIN D3) 1,000 unit tab tablet Insulin Dryden, Disposable, (BD ULTRA-FINE SANDRA PEN NEEDLE) 32 [...] times. Zaida Gaston MD documented in this encounterUc Medical Center05-10-2023 Miscellaneous Notes* Telephone Encounter - Danni Barnes RN - 01/16/2023 5:07 PM EDT Called patient to confirm renal bx. Patient unable to make appointment d/t no ride. Asked us to reschedule. Message sent to [facility]. Danni Barnes RN documented in this encounterUc Medical Center04-26-2023 Miscellaneous Notes* Telephone Encounter - Juvencio Haji RN - 01/02/2023 2:33 PM EDT Call placed to patient RE repeat labwork. Informed that creatinine is down to 2.16 from 2.8, but glucose is 392. Confirmed labwork is fasting. Encouraged patient to continue hydrating well and to contact local Security Orderly for management. States saw provider last month. During encounter, blood glucose reading 192. A1c from 10/13/22 at 8.6. Patient recently recovered from diabetic foot wound requiring wound clinic. All questions answered. Informed patient will follow up results of AlloSure and DSA. Patient stated understanding. All questions answered. Juvencio Haji RN documented in this encounterUc Medical Center04-21-2023 History of Present illness Narrative* Chelsea Ryan MD - 12/28/2022 10:07 AM EDT [facility] Transplant Follow up Portions of this note [...] Having slow graft function 03/25/22: Admitted to [facility] 2/2 osteomyelitis s/p amputation of fifth toe. Wound culture +necrotizing fascitis. Discharged with COPAT vanc and ampicillin until end of April. Follow up scheduled with wound clinic, ID and Endocrinology Protocol Bx results: 3-6 mos:07/13/21: Limited sample by light microscopy without diagnostic evidence of acute Rejection. Tubular atrophy and interstitial fibrosis, mild. Arteriolar hyalinosis, focal. 1 yr: Local Cable Operator: Dr. Motniel Lab Frequency: Monthly Home BP: 130-140/70-80 New Complaints: 1 year, 9 month visit No compliants Just got back form trip to [place] 3 weeks ago (out of town x [...] tablet by mouth q 24 HR. Insulin Dryden, Disposable, (BD ULTRA-FINE SANDRA PEN NEEDLE) 32 [...] 3 mg/actuation nasal spray (BAQSIMI) Use 1 [place]port in the nose as needed for low [...] 4 days for left toe amputation at [facility] Working for income: No; Karnofsky Index Scale: 80 - Normal activity with effort: some signs or symptoms of disease. Newly Diabetic: No Rejection: No Malignancies: No Conchis Sheets, gang miner Staff Note: December 31, 2022 4:29 PM I have seen the patient and confirmed the historical findings as outlined above. Pt returns for routine follow up visit, last office follow up on 09/24/22 In the interim, treated by local plumber and tinner in [facility] for diabetic foot infection- completed abx [...] complexity. Chelsea Ryan MD documented in this encounterUc Medical Center03-17-2023 History of Present illness Narrative* Zaida Gaston [...] SHUNT FOR DIALYSIS Right 08/08/2018 Done at [facility] by Satish Phan MD CHOLECYSTECTOMY 1998 Cholecystectomy [...] (VITAMIN D3) 1,000 unit tab tablet Insulin Dryden, Disposable, (BD ULTRA-FINE SANDRA PEN NEEDLE) 32 [...] <130/80 Zaida Gaston MD documented in this encounterUc Medical Center03-16-2023 History of Present illness Narrative* Verna Jensen, [facility] - 11/22/2022 1:00 PM EDT Images from the original note were not included. Primary Care Pharmacy Visit CC (Reason for Consult): Diabetes Goal: A1c < 7% Collaborating Provider: Dr. Gaston Last Provider Visit: 08/25/22 Italo Burgos is a 51 year old male presenting for follow up visit in person. Patient consents [facility] collaborative practice agreement. Patient is presenting [...] On 09/24 patient saw endo pharmacist at [facility] [place]. No med changes made since minimal SMBGs to review but patient encouraged to discuss GLP1 with human capital manager. At last PharmD visit on 10/04, no med changes made since patient recently started working with endo. Subjective: HPI: Said he saw human capital manager recently. He reports his sugars were looking [...] not present Adherence: denies missed doses Pharmacy: [facility]; Kiya is alternative Rx coverage: [facility] Medicare + Medicaid Affordability: no issues Diabetes supplies: One Touch [employer] System: pill boxes ACTIVE PROBLEM LIST Uncontrolled Type 2 Diabetes Mellitus With Complication, With Long-Term Current Use of Insulin Hypertension Goal Bp (Blood Pressure) < 140/90 Other Hyperlipidemia Ed (Erectile Dysfunction) Lower Urinary Tract Symptoms (Luts) History of Kidney Stones Microscopic Hematuria Diabetic Polyneuropathy Associated With Type 2 Diabetes Mellitus ([facility]) Nausea Vomiting Moderate Episode of Recurrent Major Depressive Disorder ([facility]) Right Leg Weakness Gait Instability Ckd (Chronic Kidney Disease) Requiring Chronic Dialysis ([facility]) Kidney Transplant Recipient Type 1 Diabetes Mellitus On Insulin Therapy ([facility]) PAST MEDICAL HISTORY Diagnosis Date Acute diastolic (congestive) heart failure ([facility]) Bronchitis Chronic kidney failure, stage 4 (severe) ([facility]) Depression Detached retina DM type 2, goal HbA1c < 7% ([facility]) ESRD (end stage renal disease) ([facility]) GERD (gastroesophageal reflux disease) Hyperlipidemia Kidney stones [...] (BLOOD GLUCOSE TEST) test strip One Touch [employer] [place] preferred - Kit - Dx E11.8 Insulin Dependent, Test blood sugar three times a day Blood-Glucose Meter monitoring kit Glucose Meter of Choice, One Touch [employer] preferred - Kit - Dx E11.8 Insulin [...] 3 mg/actuation nasal spray (BAQSIMI) Use 1 [place] in the nose as needed for low [...] units for every 40 >180 mg/dL) Insulin Dryden, Disposable, (BD ULTRA-FINE SANDRA PEN NEEDLE) 32 [...] management, patient is being actively managed by [facility] with frequent appointments so there is [...] verbalized understanding of instructions. Verna Jensen PharmD, [facility] Primary Care Clinical Pharmacist The majority of the pharmacy visit (> 50%) was spent counseling and/or coordinating care for thepatient. interaction: face to face time was 26 minutes. documented in this encounterUc Medical Center03-16-2023 Instructions* Patient Instructions* Verna Jensen RPh - 11/22/2022 1:00 PM EDT Start reviewing nutrition labels. Try to limit your total number of carbohydrates per meal to 30-45grams (2-3 servings). Start learning which foods have a lot of carbs, protein, etc. This will help you to make better selections for food choices. documented in this encounterUc Medical Center02-27-[address] Nava [facility] November 05, 2022 2:22pm Note Date/Time November 05, 2022 2:22pm [facility] Medical Records Department [address] [place] [address] Progress Note - Infect Disease 11/05/22 1419 MR#: [id number] Acct: [id number] Name: ITALO BURGOS Rep #:[id number] : 1970 51 From: Satish cochran MD PCP: Dr. Zaida Gaston MD Status:ADM I N Location: [place]3 CW274-9 Physical Exam Narrative Feeling well, wants to [...] Cosigner Signature (if applicable): CC: ~ Signed [facility] Work Phone: 1(781) 380-705702-27-[address] Santiago [facility] November 05, 2022 1:42pm Note Date/Time November 01, 2022 10:16am [facility] Medical Records Department [address] [place] [address] Emergency Department Summary 11/01/22 MR#: [id number] Acct: [id number] Name: ITALO BURGOS Rep #:[id number] : 1970 51 From: Chuy Santiago MD PCP: Dr. Zaida Gaston MD Status:ADM I N Location: [place]3 PE044-2 HPI History of Present Illness Chief Complaint: Cellulitis Detail of Chief Complaint: Cellulitis and infected third and fourth left toe Informant: patient, spouse/S.O. and other (Dr. Levy, plumber and tinner) Onset/Context/Timing Onset: Days (Patient states he noted [...] presently chews. He does not smoke cigarettes. [facility] Medical History Acute hypoxemic respiratory failure Acute on chronic diastolic CHF (congestive heart failure) Acute respiratory failure with hypoxia ILDA (acute kidney injury) Anasarca associated with disorder of kidney Anemia of chronic renal failure, stage 4 (severe) Anxiety and depression Atherosclerotic heart disease of [place] coronary artery without angina pectoris Autonomic [...] % (Auto) 67.5 Lymph % (Auto) 21.1 Bullitt % (Auto) 9.7 Eos % (Auto) 0.9 [...] (Auto) Neut % (Auto) Lymph % (Auto) Bullitt % (Auto) Eos % (Auto) Baso % [...] is 78. There is a left axis. NJ intervals 196 ms. QRS durations 106 ms. [...] Plan is to OR), Discussing w/Patient &/or Family/Naphthalene Operator, Discussing w/Consultants and Arranging Admission or Transfer Discharge Plan Dx/Rx/DC Orders Clinical Impression: Type 2 diabetes mellitus with left diabetic foot infection, Diabetic nephropathy, Chronic renal failure, stage 4 (severe), Anemia of chronic renal failure, stage 4 (severe), Atherosclerotic heart disease of [place] coronary artery without angina pectoris, Other specified peripheral vascular diseases, Type 2 diabetes mellitus with hyperglycemia, History of diastolic dysfunction, History of CAD (coronary artery disease) Disposition Disposition: Acute Care Hospital [facility] What to do if you have Problems For any increased pain, shortness of breath, bleeding, nausea or vomiting, chestpain, or any unexpected problems, contact your Primary Care Provider. Call [facility] ([phone]) or report to the closest Emergency Room. Call 911 if necessary. 11/05/22 1342 <Electronically signed by Chuy Santiago MD> Cosigner Signature (if applicable): CC: Dr. Zaida Gaston MD ~ Signed [facility] Work Phone: 1(207) 535-553802-26-[address] Jara [facility] November 04, 2022 3:37pm Note Date/Time November 04, 2022 2:46pm [facility] Medical Records Department [facility] [place] [address] Pharmacokinetic/Renal -Consult 11/04/22 1446 MR#: [id number] Acct: [id number] Name: ITALO BURGOS Rep #:[id number] : 1970 51 From: Oscar Jorge [facility] PCP: Dr. Zaida Gaston MD Status:ADM I N Y Location: [place] [address] Consult Pharmacy has been consulted to manage [...] Culture - Preliminary Staphylococcus epidermidis GNR lactose clinical tech 11/01/22 14:13 Amputation - Toe Anaerobic Culture [...] 11/04/22 1446 <Electronically signed by Oscar Mckeon [facility]> Date _ Oscar Bee [facility] 11/04/22 1537 <Electronically signed by Shruti schaefer MD> Cosigner Signature (if applicable): Date Shruti Jara MD CC: ~ Signed [facility] Work Phone: 1(226) 828-409302-26-[address] Jara [facility] November 04, 2022 3:37pm Note Date/Time November 04, 2022 1:50pm [facility] Medical Records Department [address] [place] [address] Progress Note 11/04/22 1346 MR#: [id number] Acct: [id number] Name: ITALO BURGOS Rep #:[id number] : 1970 51 From: Shruti Jara MD PCP: Dr. Zaida Gaston MD Status:ADM I N Location: [place] [address] Subjective Subjective Patient seen and examined. He [...] % (Auto) 61.4, Lymph % (Auto) 26.5, Bullitt % (Auto) 10.5 H, Eos % (Auto) [...] Culture - Preliminary Staphylococcus epidermidis GNR lactose clinical tech 11/01/22 14:13 Amputation - Toe Anaerobic Culture [...] Total time spent seeing patient and examining [id number], review of chart, reviewing specialist notes, discussion of plan of care with patient and ancillary staff as well as documentation in EMR: 33 minutes. Charges/Coding Visit Charges Inpatient E&M: 69969 Subs Hosp L2 11/04/22 1537 <Electronically signed by Shruti Jara MD> Shruti Jara MD Cosigner Signature (if applicable): CC: ~ Signed [facility] Work Phone: 1(737) 608-387902-26-[address] Niño [facility] November 04, 2022 9:00am Note Date/Time November 04, 2022 9:00am [facility] Medical Records Department [address] [place] [address] Progress Note 11/04/22 0859 MR#: [id number] Acct: [id number] Name: ITALO BURGOS Rep #:[id number] : 1970 51 From: Gerhard Niño DPM PCP: Dr. Zaida Gaston MD Status:ADM I N Location: [place] [address] Subjective Subjective Patient was seen this morning. [...] 71.4 H, Lymph % (Auto) 18.4 L, Bullitt % (Auto) 9.0, Eos % (Auto) 0.8, [...] % (Auto) 61.4, Lymph % (Auto) 26.5, Bullitt % (Auto) 10.5 H, Eos % (Auto) 0.8, Baso % (Auto) 0.5, Absolute Neuts (auto)3.8, Absolute Lymphs (auto) 1.64, Nucleated RBC % 0 Micro: Microbiology 11/01/22 14:13 Amputation - Toe Gram Stain - Final 11/01/22 14:13 Amputation - Toe Wound Culture - Preliminary Staphylococcus epidermidis GNR lactose clinical tech 11/01/22 14:40 Incision/Surgical Site Gram Stain - [...] Benavides Signature (if applicable): CC: ~ Signed [facility] Work Phone: 1(424) 966-553902-26-[address] Jara [facility] November 04, 2022 7:27am Note Date/Time November 03, 2022 1:31pm [facility] Medical Records Department [address] [place] [address] Progress Note - Hospitalist 11/03/22 1320 MR#: [id number] Acct: [id number] Name: ITALO BRUGOS Rep #:[id number] : 1970 51 From: Shruti Jara MD PCP: Dr. Zaida Gaston MD Status:ADM I N Location: [place] [address] Reason for Visit Reason for Visit: Diagnoses [...] 71.4 H, Lymph % (Auto) 18.4 L, Bullitt % (Auto) 9.0, Eos % (Auto) 0.8, [...] Culture - Preliminary Staphylococcus species GNR lactose clinical tech 11/01/22 14:40 Incision/Surgical Site Gram Stain - [...] Total time spent seeing patient and examining dpfn-rn-nros, review of chart, reviewing specialist notes, discussion of plan of care with patient and ancillary staff as well as documentation in EMR: 35 minutes. Charges/Coding Visit Charges Inpatient E&M: 24451 Subs Hosp L2 11/04/2227 <Electronically signed by Shruti Jara MD> Cosigner Signature (if applicable): CC: ~ Signed [facility] Work Phone: 1(934) 448-383902-26-2023 Consult note Author jA Costello [facility] November 04, 2022 12:41am Note Date/Time November 04, 2022 12:41am [facility] Medical Records Department [address] [place] [address] Pharmacokinetic/Renal -Consult 11/04/22 0040 MR#: [id number] Acct: [id number] Name: ITALO BURGOS Rep #:[id number] : 1970 51 From: Aj Fields od PCP: Dr. Zaida Gaston MD Status:ADM I N Y Location: [place] [address] Consult Pharmacy has been consulted to manage [...] Culture - Preliminary Staphylococcus species GNR lactose clinical tech 11/01/22 14:13 Amputation - Toe Anaerobic Culture [...] on [date and time ordered]: 11/04 @ 3300 11/04/22 0041 <Electronically signed by Aj matthews > Date _ Aj Benavides Signature (if applicable): Date CC: ~ Signed [facility] Work Phone: 1(280) 798-805602-25-[address] Niño [facility] November 03, 2022 9:22am Note Date/Time November 03, 2022 8:56am [facility] Medical Records Department [address] [place] [address] Progress Note 11/03/22 0856 MR#: [id number] Acct: [id number] Name: ITALO BURGOS Rep #:[id number] : 1970 51 From: Gerhard Niño DPM PCP: Dr. Zaida Gaston MD Status:ADM I N Location: [address] Subjective Subjective Patient was seen this [...] Clarity Clear, Urine pH 6.0, Ur Specific Perrin 1.030, Urine Protein Negative, Urine Glucose (UA) [...] Culture - Preliminary Staphylococcus species GNR lactose clinical tech 11/01/22 14:40 Incision/Surgical Site Gram Stain - [...] Signature (if applicable): Date cc: ~* Signed [facility] Work Phone: 1(280) 535-842202-24-[address] [facility] November 02, 2022 4:56pm Note Date/Time November 01, 2022 11:[facility] Medical Records Department [address] [place] [address] Progress Note - Hospitalist 11/01/22 1104 MR#: [id number] Acct: [id number] Name: BURGOSITALO FONG Mery Rep #:[id number] : 1970 51 From: Shruti Jara MD PCP: Dr. Zaida Gaston MD Status:ADM I N Location: [place] [address] Reason for Visit Reason for Visit: Diagnoses [...] otherwise negative Vitals in the ED were NJ of 81, RR of 16 and oxygen [...] % (Auto) 67.5, Lymph % (Auto) 21.1, Bullitt% (Auto) 9.7, Eos % (Auto) 0.9, Baso [...] Total time spent seeing patient and examining dxxj-al-azor, review of chart, reviewing specialist notes, discussion of plan of care with patient and ancillary staff as well as documentation in EMR: 45 minutes. Charges/Coding Visit Charges Inpatient E&M: 27629 Subs Hosp L3 11/02/22 4498 <Electronically signed by Shruti Jara MD> Cosigner Signature (if applicable): CC: ~ Signed [facility] Work Phone: 1(239) 737-828102-24-[address] Jara [facility] November 02, 2022 4:56pm Note Date/Time November 02, 2022 12:46pm [facility] Medical Records Department [address] [place] [address] Progress Note - Hospitalist 11/02/22 1245 MR#: [id number] Acct: [id number] Name: ITALO BURGOS Rep #:[id number] : 1970 51 From: Shruti Jara MD PCP: Dr. Zaida Gaston MD Status:ADM I N Location: [place] [address] Reason for Visit Reason for Visit: Diagnoses [...] Clarity Clear, Urine pH 6.0, Ur Specific Perrin 1.030, Urine Protein Negative, Urine Glucose (UA) [...] 82.7 H, Lymph % (Auto) 9.3 L, Bullitt %(Auto) 7.5, Eos % (Auto) 0.0, Baso [...] Total time spent seeing patient and examining vtgu-gg-sngy, review of chart, reviewing specialist notes, discussion of plan of care with patient and ancillary staff as well as documentation in EMR: 40 minutes. Charges/Coding Visit Charges Inpatient E&M: 10673 Subs Hosp L2 11/02/22 1656 <Electronically signed by Shruti Jara MD> Cosigner Signature (if applicable): CC: ~ Signed [facility] Work Phone: 1(455) 130-710202-24-[address] Nava [facility] November 02, 2022 11:56am Note Date/Time November 02, 2022 11:56am [facility] Medical Records Department [address] [place] [address] Consultation - Infectious Dx 11/02/22 1149 MR#: [id number] Acct: [id number] Name: LORETTAITALO D Rep #:[id number] : 1970 51 From: Satish cochran MD PCP: Dr. Zaida Gaston MD Status:ADM I N Location: [place] [address] Assessment & Plan Assessment/Plan (1) Osteomyelitis of [...] performed and neg except as noted above. [facility] Medical History Acute hypoxemic respiratory failure Acute on chronic diastolic CHF (congestive heart failure) Acute respiratory failure with hypoxia ILDA (acute kidney injury) Anasarca associated with disorder of kidney Anemia of chronic renal failure, stage 4 (severe) Anxiety and depression Atherosclerotic heart disease of [place]bi[place] coronary artery without angina pectoris Autonomic [...] 82.7 H, Lymph % (Auto) 9.3 L, Bullitt %(Auto) 7.5, Eos % (Auto) 0.0, Baso [...] 15:14 EST Reading Location ID and State: [facility] / [place] , Service support , 11/02/22 1156 <Electronically signed by Satish Nava MD> Cosigner Signature (if applicable): CC: [employer]-Alberto Garrison; [employer]-Alberto Funes; AJ Josue; Delmy Billy; Dr. Amy Ureña MD; Dr. Zaida Gaston MD; Dr. William Hayes DO; Dr. Kendra MD; Dr. Awa Martínez MD; Dr. Satish Nava MD~ Signed [facility] Work Phone: 1(661) [phone] Consult note Author Valentín Evans [facility] November 02, 2022 9:14am Note Date/Time November 02, 2022 9:12am [facility] Medical Records Department [address] [address] Pharmacokinetic/Renal -Consult 11/02/22 09 MR#: [id number] Acct: [id number] Name: ITALO BURGOS Rep #:[id number] : 1970 51 From: Valentín mora PCP: Dr. Zaida Gaston MD Status:ADM I N Y Location: [place] [address] Consult Pharmacy has been consulted to manage [...] scheduled maintenance doseof 1250mg IV q12h per [facility] dosing protocol. Will check a trough level [...] Signature (if applicable): Date CC: ~ Signed [facility] Work Phone: 1(406) 713-884802-24-[address] Niño [facility] November 02, 2022 7:15am Note Date/Time November 02, 2022 6:55am [facility] Medical Records Department [address] [place] [address] Progress Note 11/02/2254 MR#: [id number] Acct: [id number] Name: ITALO BURGOS Rep #:[id number] : 1970 51 From: Gerhard Niño DPM PCP: Dr. Zaida Gaston MD Status:ADM I N Location: [place] [address] Subjective Subjective Patient was seen this morning for follow up on [facility]. Patient afebrile, WBC normal. Bld Cx [...] % (Auto) 67.5, Lymph % (Auto) 21.1, Bullitt% (Auto) 9.7, Eos % (Auto) 0.9, Baso [...] 82.7 H, Lymph % (Auto) 9.3 L, Bullitt %(Auto) 7.5, Eos % (Auto) 0.0, Baso [...] Cosigner Signature (if applicable): CC: ~ Signed [facility] Work Phone: 1(412) 592-666902-24-[address] Smith [facility] November 02, 2022 6:29am Note Date/Time November 02, 2022 6:29am [facility] Medical Records Department [address] [place] [address] Progress Note - Hospitalist 11/02/22628 MR#: [id number] Acct: [id number] Name: ITALO BURGOS Rep #:[id number] : 1970 51 From: Isamar Smith MD PCP: Dr. Zaida Gaston MD Status:ADM I N Location: [place] [address] Hospitalist Note Bld Cx with GPC in clusters. Will start IV Vancomycin. 11/02/22628 <Electronically signed by Isamar Smith MD> Cosigner Signature (if applicable): CC: ~ Signed [facility] Work Phone: 1(539) 358-200602-23-2023 Procedure [facility] 11-01-2022 History and physical note Author Dr. Levy [facility] November 01, 2022 10:43am Note Date/Time November 01, 2022 10:42am [facility] Medical Records Department [address] [place] [address] History & Physical Exam 11/01/22 1041 MR#: [id number] Acct: [id number] Name: ITALO BURGOS Rep #:[id number] : 1970 51 From: Mayo Levy DPM PCP: Dr. Zaida Gaston MD Status:REG S DC Location: [place] [address] HPI - General General Date of Admission: [...] to transmetatarsal amputation today.? No other complaints. [facility] Medical History Acute hypoxemic respiratory failure Acute on chronic diastolic CHF (congestive heart failure) Acute respiratory failure with hypoxia ILDA (acute kidney injury) Anasarca associated with disorder of kidney Anemia of chronic renal failure, stage 4 (severe) Anxiety and depression Atherosclerotic heart disease of [place] coronary artery without angina pectoris Autonomic [...] % (Auto) 67.5, Lymph % (Auto) 21.1, Bullitt% (Auto) 9.7, Eos % (Auto) 0.9, Baso [...] IRIS Levy; Dr. Zaida Gaston MD~ Signed [facility] Work Phone: 1(677) 118-420702-23-[address] Levy [facility] November 01, 2022 10:17am Note Date/Time November 01, 2022 10:16am [facility] Medical Records Department [address] [place] [address] Consultation 11/01/22 1007 MR#: [id number] Acct: [id number] Name: ITALO BURGOS Rep #:[id number] : 1970 51 From: Mayo Levy DPM [...] to transmetatarsal amputation today. No other complaints. [facility] Medical History (Updated 11/01/22 @ 10:11 by DIXIE CortésSilvano) Acute hypoxemic respiratory failure Acute on chronic diastolic CHF (congestive heart failure) Acute respiratory failure with hypoxia ILDA (acute kidney injury) Anasarca associated with disorder of kidney Anemia of chronic renal failure, stage 4 (severe) Anxiety and depression Atherosclerotic heart disease of [place] coronary artery without angina pectoris Autonomic [...] applicable): CC: Dr. Zaida Gaston MD~ Signed [facility] Work Phone: 1(625) [phone] History of Present illness Narrative* Verna Jensen, [facility] - 10/04/2022 1:00 PM EST Images from the original note were not included. Primary Care Pharmacy Visit CC (Reason for Consult): Diabetes Goal: A1c < 7% Collaborating Provider: Dr. Gaston Last Provider Visit: 08/25/22 Italo Burgos is a 51 year old male presenting for follow up visit in person. Patient consents [facility] practice agreement. Patient is presenting today [...] On 09/24 patient saw endo pharmacist at [facility] [place]. No medchanges made since minimal SMBGs to review but patient encouraged to discuss GLP1 with human capital manager. Subjective: HPI: He really likes the Dexcom, [...] units with snack. He really liked the human capital manager, seeing again in October. Current DM Medications: [...] not present Adherence: denies missed doses Pharmacy: [facility]; Kiya is alternative Rx coverage: [facility] Medicare + Medicaid Affordability: no issues Diabetes supplies: [facility] ([place]) Organization System: pill boxes ACTIVE PROBLEM LIST [...] Ckd (Chronic Kidney Disease) Requiring Chronic Dialysis ([facility]) Kidney Transplant Recipient Type 1 Diabetes Mellitus On Insulin Therapy ([facility]) PAST MEDICAL HISTORY Diagnosis Date Acute diastolic (congestive) heart failure ([facility]) Bronchitis Chronic kidney failure, stage 4 (severe) ([facility]) Depression Detached retina DM type 2, goal HbA1c < 7% ([facility]) ESRD (end stage renal disease) ([facility]) GERD (gastroesophageal reflux disease) Hyperlipidemia Kidney stones [...] sugar diagnostic (BLOOD GLUCOSE TEST) test strip [facility] ([place]) preferred - Kit - Dx E11.8 Insulin [...] 3 mg/actuation nasal spray (BAQSIMI) Use 1 [place]port in the nose as needed for low [...] SCALE (MAX 50 UNITS PER DAY) Insulin Dryden, Disposable, (BD ULTRA-FINE SANDRA PEN NEEDLE) 32 [...] next month CONTINUE insulin as recommended by human capital manager Advised patient to discuss the following things [...] verbalized understanding of instructions. Verna Jensen PharmD, [facility] Primary Care Clinical Pharmacist The majority of the pharmacy visit (> 50%) was spent counseling and/or coordinating care for thepatient. interaction: face to face time was 30 minutes. documented in this encounterUc Medical Center01-26-2023 Instructions* Patient Instructions* Verna Jenesn RPh - 10/04/2022 1:00 PM EST Consider whether or not you would be open to doing carb counting. Can discuss with human capital manager at upcoming appointment. Confirm with human capital manager if you have Type 1 vs Type 2 diabetes. Discuss with human capital manager his thoughts on starting a GLP1 receptor agonist. Bring Dexcom to your human capital manager appointment. documented in this encounterUc Medical Center01-19-2023 Progress note Author Dona Medina [facility] September 27, 2022 9:55am Note Date/Time September 27, 2022 8 :24am [facility] [address] [place] [address] Progress Note - Wound Care 09/27/22 0824 MR#: [id number] Acct: [id number] Name: ITALO BURGOS Rep #:[id number] : 1970 51 From: oDna adams DPM PCP: Dr. Zaida Gaston MD [...] Recorded Date Recorded By Document 09/13/22 07:59 [id number] 09/13/22 08:01 Document 09/20/22 08:07 [id number] 09/20/22 08:08 Document 09/27/22 08:03 CARLINE [id number] 09/27/22 08:04 09/13/22 09/20/22 09/27/22 07:59 08:07 08:03 - Today's Visit Information Type of service Follow-up Visit Follow-up Visit Follow-up Visit (Physician/TRIMMER OPERATOR THREE KNIFE (Physician/TRIMMER OPERATOR THREE KNIFE (Physician/TRIMMER OPERATOR THREE KNIFE ) ) ) Arrival Mode Ambulatory, Ambulatory [...] Date Recorded By Document 09/13/22 07:59 CARLINE [id number] 09/13/22 08:01 JF Document 09/20/22 08:07 KR [id number] 09/20/22 08:08 KR Document 09/27/22 08:03 CARLINE [id number] 09/27/22 08:04 CARLINE 09/13/22 09/20/22 09/27/22 07:59 [...] Date Recorded By Document 09/13/22 09:09 PL [id number] 09/13/22 09:11 PL Document 09/20/22 12:00 PL [id number] 09/20/22 12:00 PL 09/13/22 09/20/22 09:09 12:00 [...] Disc -Expiration Date 05/10/27 -Product Lot Number [id number] -Percent Used 100 -Bleeding Controlled with [...] Recorded Date Recorded By Document 09/13/22 08:51 [place] [id number] 09/13/22 08:51 [place] Document 09/20/22 09:32 [id number] 09/20/22 09:32 KR 09/13/22 09/20/22 08:51 09:32 [...] was encouraged to continue routine follow-ups with human capital manager sothat he may get his blood sugars [...] next visit he is to return to [facility]'s wet-to-dry dressings.? He voices understanding of that. [...] continued localized woundcare and close monitoring. Note: [employer] speech recognition principal consultant software was used to create portions of this document. Sound-alike and misspelled words, as well as other principal consultant errors may be contained in the documentation 09/27/22 0955 <Electronically signed by Dona Medina DPM> Cosigner Signature (if applicable): CC: ~ Signed [facility] Work Phone: 1(292) 872-116201-16-2023 History of Present illness Narrative* Felicita Salomonaacs, [facility] - 09/24/2022 10:58 AM EST Patient seen [...] by PCP for his diabetes. Goes to human capital manager in [place]. His had bariatric, down to 218lbs. Using [...] SMBG: Wearing dexcom, however unable to download vacuum system tester. Current glucose is 273. Last a1c was elevated A/P: No adjustments today as we have only 1 day of data and pt now has established care with local endo.Recommend to discuss w/ endo about using a glp-1 agonist. F/up: PRN. Diabetes Care Team Hospital Discharge Help Line: [phone] Felicita Cameron, PharmD, BCPS, BCACP BC-ADM, CDCES Endocrine Clinical Forensic Medical Examiner documented in this encounterUc Medical Center01-16-2023 Instructions* Patient Instructions* Felicita Cameron RPh - 09/24/2022 10:58 AM EST Talk to your human capital manager about starting a glp-1 agonist. Examples include semaglutide (Ozempic)or dulaglutide (Trulicity). This may allow you to reduce or even eventually stop your meal time insulin. documented in this encounterUc Medical Center01-16-2023 History of Present illness Narrative* Alana Kent, [place].TRIMMER OPERATOR THREE KNIFE - 09/24/2022 10:45 AM EST [facility] Follow up Portions of this note [...] Having slow graft function 03/25/22: Admitted to [facility] 2/2 osteomyelitis s/p amputation of fifth toe. Wound culture +necrotizing fascitis. Discharged with [facility] vanc and ampicillin until end april. Follow up scheduled with wound clinic, ID and Endocrinology Protocol Bx results: 3-6 mos:07/13/21: Limited sample by light microscopy without diagnostic evidence of acute Rejection. Tubular atrophy and interstitial fibrosis, mild. Arteriolar hyalinosis, focal. 1 yr: Local Cable Operator: Dr. Montiel Lab Frequency: Monthly Home [...] Inject 44 Units subcutaneously every morning. Insulin Dryden, Disposable, (BD ULTRA-FINE SANDRA PEN NEEDLE) 32 [...] 3 mg/actuation nasal spray (BAQSIMI) Use 1 [place] in the nose as needed for low [...] Inject 44 Units subcutaneously every morning. Insulin [place], Disposable, (BD ULTRA-FINE SANDRA PEN NEEDLE) 32 [...] 3 mg/actuation nasal spray (BAQSIMI) Use 1 [place] in the nose as needed for low [...] complexity. Alana Kent APRN.ANDRE documented in this encounterUc Medical Center01-12-2023 Progress note Author Dona Medina [facility] September 20, 2022 9:39am Note Date/Time September 20, 2022 9 :18am [facility] [address] [place] [address] Progress Note - Wound Care 09/20/2217 MR#: [id number] Acct: [id number] Name: ITALO BURGOS Rep #:[id number] : 1970 51 From: Dona adams DPM [...] Recorded Date Recorded By Document 09/13/22 07:59 [id number] 09/13/22 08:01 Document 09/20/22 08:07 JOE [id number] 09/20/22 08:08 JOE 09/13/22 09/20/22 07:59 08:07 - Today's Visit Information Type of service Follow-up Visit Follow-up Visit (Physician/TRIMMER OPERATOR THREE KNIFE (Physician/TRIMMER OPERATOR THREE KNIFE ) ) Arrival Mode Ambulatory, Ambulatory Walker [...] Date Recorded By Document 09/13/22 07:59 CARLINE [id number] 09/13/22 08:01 JF Document 09/20/22 08:07 KR [id number] 09/20/22 08:08 KR 09/13/22 09/20/22 07:59 08:07 [...] Date Recorded By Document 09/13/22 09:09 PL [id number] 09/13/22 09:11 PL 09/13/22 09:09 Wound Center [...] Disc -Expiration Date 05/10/27 -Product Lot Number [id number] -Percent Used 100 -Bleeding Controlled with [...] Date Recorded By Document 09/13/22 08:51 AK [id number] 09/13/22 08:51 AK 09/13/22 08:51 Wound Care [...] was encouraged to continue routine follow-ups with human capital manager sothat he may get his blood sugars [...] localized wound care and close monitoring. Note: [employer] speech recognition principal consultant software was used to create portions of this document. Sound-alike and misspelled words, as well as other principal consultant errors may be contained in the documentation 09/20/22 0939 <Electronically signed by Dona Medina DPM> Cosigner Signature (if applicable): CC: ~ Signed [facility] Work Phone: 1(354) 519-796601-05-2023 Progress note Author Dona Medina [facility] September 13, 2022 9:22am Note Date/Time September 13, 2022 8: 25am [facility] [address] [place] [address] Progress Note - Wound Care 09/13/22 0823 MR#: [id number] Acct: [id number] Name: LORETTAITALO D Rep #:[id number] : 1970 51 From: Dona adams DPM [...] or yesterday.? Hewas recently evaluated by his human capital manager and has had improvement in lowering his [...] Date Recorded By Document 09/13/22 07:59 CARLINE [id number] 09/13/22 08:01 CARLINE 09/13/22 07:59 WC - Today's Visit Information Type of service Follow-up Visit (Physician/TRIMMER OPERATOR THREE KNIFE ) Arrival Mode Ambulatory, Walker Patient Requires [...] Date Recorded By Document 09/13/22 07:59 CARLINE [id number] 09/13/22 08:01 CARLINE 09/13/22 07:59 Wound Center [...] was encouraged to continue routine follow-ups with human capital manager sothat he may get his blood sugars [...] localized wound care and close monitoring. Note: [employer] speech recognition principal consultant software was used to create portions of this document. Sound-alike and misspelled words, as well as other principal consultant errors may be contained in the documentation 09/13/22 0922 <Electronically signed by Dona Medina DPM> Cosigner Signature (if applicable): CC: ~ Signed [facility] Work Phone: 1(149) 147-917001-03-2023 Progress note Author Jennajeronimo Bedoya [facility] September 11, 2022 9:55am Note Date/Time September 11, 2022 8: 18am [facility] [address] [place] [address] Progress Note - Wound Care HBO 09/11/22 0817 MR#: [id number] Acct: [id number] Name: ITALO BURGOS Rep #:[id number] : 1970 51 From: Jenna cochran NP [employer]-C PCP: Dr. Zaida Gaston MD Status:PRE R CR Location: History of Present Illness Date of Service: 09/06/22 Chief Complaint: Osteomyelitis of the left foot; diabetic foot ulceration History of Wound: Patient is a 51-year-old male who presents to the wound care center for evaluation for hyperbaric oxygen therapy. He has been seeing Dr. oGmez for follow-up status post I&D of gas [...] 0955 <Electronically signed by Jenna Bedoya NP [employer]-C> Cosigner Signature (if applicable): CC: ~ Signed [facility] Work Phone: 1(855) 609-839812-17-2022 History of Present illness Narrative* Zaida Gaston [...] SHUNT FOR DIALYSIS Right 08/08/2018 Done at [facility] by Satish Phan MD CHOLECYSTECTOMY 1998 Cholecystectomy [...] U-100 INSULIN) 100 unit/mL (3 mL) Insulin [place], Disposable, (BD ULTRA-FINE SANDRA PEN NEEDLE) 32 [...] same Zaida Gaston MD documented in this encounterUc Medical Center12-15-2022 Miscellaneous Notes* Telephone Encounter - Verna Jensen RPh - 08/23/2022 4:25 PM EST Rachel submitted paperwork through [employer] to order the Dexcom G6 CGM system for patient. [employer] through [email or web address]. Verna Jensen PharmD, [facility] Primary Care Clinical Pharmacist documented in this encounterUc [facility] Center12-15-2022 History of Present illness Narrative* Verna Jensen [...] getting foot healed. Has appointment to see [place] [facility] on 09/06 to establish care. Current [...] are present Adherence: denies missed doses Pharmacy: [facility]; [place] is alternative Rx coverage: [facility] Medicare + Medicaid Affordability: no issues Diabetes supplies: [employer] [place] [employer] System: pill boxes ACTIVE PROBLEM LIST Uncontrolled Type 2 Diabetes Mellitus With Complication, With Long-Term Current Use of Insulin Hypertension Goal Bp (Blood Pressure) < 140/90 Other Hyperlipidemia Ed (Erectile Dysfunction) Lower Urinary Tract Symptoms (Luts) History of Kidney Stones Microscopic Hematuria Diabetic Polyneuropathy Associated With Type 2 Diabetes Mellitus ([facility]) Nausea Vomiting Moderate Episode of Recurrent Major Depressive Disorder ([facility]) Right Leg Weakness Gait Instability Ckd (Chronic Kidney Disease) Requiring Chronic Dialysis ([facility]) Kidney Transplant Recipient Type 1 Diabetes Mellitus On Insulin Therapy ([facility]) PAST MEDICAL HISTORY Diagnosis Date Acute diastolic (congestive) heart failure ([facility]) Bronchitis Chronic kidney failure, stage 4 (severe) ([facility]) Depression Detached retina DM type 2, goal HbA1c < 7% ([facility]) ESRD (end stage renal disease) ([facility]) GERD (gastroesophageal reflux disease) Hyperlipidemia Kidney stones [...] 3 mg/actuation nasal spray (BAQSIMI) Use 1 [place] in the nose as needed for low [...] DAY) Taking 15 units with meals Insulin Dryden, Disposable, (BD ULTRA-FINE SANDRA PEN NEEDLE) 32 [...] Advised patient to discuss the following with human capital manager at upcoming appt: consider labwork todetermine if [...] verbalized understanding of instructions. Verna Jensen PharmD, [facility] Primary Care Clinical Pharmacist The majority of the pharmacy visit (> 50%) was spent counseling and/or coordinating care for thepatient. interaction: face to face time was 70 minutes. documented in this encounterUc Medical Center12-15-2022 Instructions* Patient Instructions* Verna Jensen [facility] - 08/23/2022 3:00 PM EST INCREASE Lantus [...] like Ozempic or Trulicity. documented in this [facility]12-15-2022 Miscellaneous Notes* Telephone Encounter - Zaida Gaston MD - 08/23/2022 8:09 AM EST Noted Regards, Zaida Gaston MD * Telephone Encounter - Josseline Murphy RN - 08/20/2022 2:04 PM EST Felicita WORTHINGTONdirector machine from [facility] calls to report that patient was discharged from [facility]. Patient has skin graft on left lower extremity. Patient feels like he can do wound care onhis own and does not feel that he needs them to come into his home anymore to help. Josseline Murphy RN documented in this encounterUc Medical Center11-29-2022 Miscellaneous Notes* Telephone Encounter - Anita Holbrook LPN - 08/07/2022 9:03 AM EST Popeye with [facility] called and the labs requested earlier did not go thru. Pt identified by name and date of . Requested 3 months back on labs. Copied and faxed to [phone]. Done. Anita Holbrook LPN documented in this encounterUc Medical Center11-28-2022 Miscellaneous Notes* Telephone Encounter - Jenae Cruz LPN - 08/06/2022 9:48 AM EST Popeye from [facility] calling received referral and asking for copy of lab to be faxed to [phone]. Printed labs from 08/04/2022 and faxed as requested. documented in this encounterUc Medical Center11-25-2022 History of Present illness Narrative* Meli Bolaños, 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 THREE KNIFE - 08/03/2022 8:47 AM EST [facility] Follow up Portions of this note [...] Having slow graft function 03/25/22: Admitted to [facility] 2/2 osteomyelitis s/p amputation of fifth toe. Wound culture +necrotizing fascitis. Discharged with COPAT vanc and ampicillin until end of April. Follow up scheduled with wound clinic, ID and Endocrinology Protocol Bx results: 3-6 mos:07/13/21: Limited sample by light microscopy without diagnostic evidence of acute Rejection. Tubular atrophy and interstitial fibrosis, mild. Arteriolar hyalinosis, focal. 1 yr: Local Cable Operator: Dr. Montiel Lab Frequency: Monthly Home BP: 120's/60's New Complaints: Feeling well overall Healing left foot. Continues with hyperbaric therapy. Awaiting PT. Completed all antibiotic therapy. Last lab results from 10/24 Will go to [facility] in [place] to establish with Endocrinology. Last A1c from 07/13 at 10.6 Current Outpatient Medications Medication Sig Insulin Dryden, Disposable, (BD ULTRA-FINE SANDRA PEN NEEDLE) 32 [...] 3 mg/actuation nasal spray (BAQSIMI) Use 1 [place] in the nose as needed for low [...] Last A1c 10.9 (that we have in [facility]) Rejection: No Malignancies: No Juvencio [...] decision making of high complexity. Meli Bolaños APRN.TRIMMER OPERATOR THREE KNIFE documented in this encounterUc Medical Center11-23-2022 Miscellaneous Notes* Telephone Encounter - Zaida Gaston MD - 08/01/2022 8:54 AM EST Staff Please fax the consult over documented in this encounterUc Medical Center11-11-2022 Miscellaneous Notes* Telephone Encounter - Torrie Moore LPN - 07/20/2022 12:26 PM EST Patient phones requesting refills as follows: Requested Prescriptions Pending Prescriptions Disp Refills Insulin Dryden, Disposable, (BD ULTRA-FINE SANDRA PEN NEEDLE) 32 gauge x 5/32 200 Each 11 Sig: Use as directed four times daily Please review and advise. Torrie Moore LPN documented in this encounterUc Medical Center11-04-2022 History of Present illness Narrative* Zaida Gaston [...] SHUNT FOR DIALYSIS Right 08/08/2018 Done at [facility] by Saitsh Phan MD CHOLECYSTECTOMY 1998 Cholecystectomy COLONOSCOPY 12/04/2018 [...] diagnostic (BLOOD GLUCOSE TEST) test strip Insulin Dryden, Disposable, (BD ULTRA-FINE SANDRA PEN NEEDLE) 32 [...] <130/80 Zaida Gaston MD documented in this encounterUc Medical Center10-27-2022 History of Present illness Narrative* Meli Bolaños APRN.TRIMMER OPERATOR THREE KNIFE - 07/05/2022 8:40 AM EDT [facility] Follow up Portions of this note [...] Having slow graft function 03/25/22: Admitted to [facility] 2/2 osteomyelitis s/p amputation of fifth toe. Wound culture +necrotizing fascitis. Discharged with COPAT vanc and ampicillin until end of April. Follow up scheduled with wound clinic, ID and Endocrinology Protocol Bx results: 3-6 mos:07/13/21: Limited sample by light microscopy without diagnostic evidence of acute Rejection. Tubular atrophy and interstitial fibrosis, mild. Arteriolar hyalinosis, focal. 1 yr: Local Cable Operator: Dr. Montiel Lab Frequency: Monthly Home [...] DAY. DX: 250.E11.9. INSULIN DEP: yes Insulin Dryden, Disposable, (BD ULTRA-FINE SANDRA PEN NEEDLE) 32 gauge x 5/32 Use as directed four times daily glucagon 3 mg/actuation nasal spray (BAQSIMI) Use 1 [place] in the nose as needed for low [...] Last A1c 10.9 (that we have in [facility]) Rejection: No Malignancies: No Lashae [...] complexity. Meli Bolaños APRN.ANDRE documented in this encounterUc Medical Center09-30-2022 History of Present illness Narrative* Juvencio Haji RN - 06/08/2022 12:00 PM EDT [facility] Follow up Portions of this note [...] Having slow graft function 03/25/22: Admitted to [facility] 2/2 osteomyelitis s/p amputation of fifth toe. Wound culture +necrotizing fascitis. Discharged with COPAT vanc and ampicillin until end april. Follow up scheduled with wound clinic, ID and Endocrinology Protocol Bx results: 3-6 mos:07/13/21: Limited sample by light microscopy without diagnostic evidence of acute Rejection. Tubular atrophy and interstitial fibrosis, mild. Arteriolar hyalinosis, focal. 1 yr: Local Cable Operator: Dr. Montiel Lab Frequency: Monthly Home [...] labwork drawn since 03/03. Orders updated in [facility] and new standing lab form [...] DAY. DX: 250.E11.9. INSULIN DEP: yes Insulin Dryden, Disposable, (BD ULTRA-FINE SANDRA PEN NEEDLE) 32 gauge x /32 Use as directed four times daily glucagon 3 mg/actuation nasal spray (BAQSIMI) Use 1 [place] in the nose as needed for low [...] negative. Juvencio Haji RN documented in this encounterUc Medical Center08-17-2022 Miscellaneous Notes* Telephone Encounter - Kathrine Logan [...] patient. Melissa Batres Pss documented in this encounterUc Medical Center08-02-2022 History of Present illness Narrative* Zaida Gaston MD - 04/10/2022 4:40 PM EDT Reason for Visit Patient presents with: Established Patient: [facility] left foot 5 th digit removed Italo [...] patient has diabetic neuropathy following at the [facility] with Dr. Levy for leftfoot ulcer with new wound region plantar region and cellulitis prompting debridement culture and initiation of doxycycline, Cipro regimen with daily dressings of silver alginate. He was recommended offloading and surgical shoe. He had been to vacation at [place] between March 13 and March 24. He [...] his wound suddenly worsened. [facility] he [...] Bronchitis Chronic kidney failure, stage 4 (severe) ([facility]) Depression Detached retina DM type 2, goal HbA1c < 7% (HCC) ESRD (end stage renal disease) ([facility]) GERD (gastroesophageal reflux disease) Hyperlipidemia Kidney stones LUANNE (obstructive sleep apnea) PNA (pneumonia) Proliferative retinopathy 02/10/2019 Snoring Unspecified essential hypertension Vitamin D deficiency PAST SURGICAL HISTORY Procedure Laterality Date AMPUTATION TOE,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 08/08/2018 Done at [facility] by Satish Phan MD CHOLECYSTECTOMY 1998 Cholecystectomy [...] diagnostic (BLOOD GLUCOSE TEST) test strip Insulin Dryden, Disposable, (BD ULTRA-FINE SANDRA PEN NEEDLE) 32 [...] 1. Amputation of little toe, initial encounter ([facility]) - ICD9: 895.0, ICD10: S98.139A (primary diagnosis) [...] evidence of necrosis, unspecified part of foot ([facility]) - ICD9: 250.80, 707.15, ICD10: E11.621, L97.525 Controlled. - Continue current medications 4. Osteomyelitis of toe ([facility]) - ICD9: 730.27, ICD10: M86.9 He will need long-term antibiotic He has an ID that following up with him and podiatry and wound center Zaida Gaston MD documented in this encounterUc Medical Center08-01-2022 Miscellaneous Notes* Telephone Encounter - Zaida Gaston MD - 04/09/2022 6:57 PM EDT Noted * Telephone Encounter - Kirti Rehman RN - 04/09/2022 3:41 PM EDT Felicita with [facility] calling to update PCP that patient [place]. He has a superficial abrasion to his right knee. Patient denies hitting hishead or other injuries. Thank you. Kirti Rehman RN documented in this encounterUc Medical Center07-28-2022 Miscellaneous Notes* Telephone Encounter - DELROY Subramanian - 04/05/2022 10:29 PM EDT Patient phones requesting refills as follows: Pending Prescriptions Disp Refills PANTOPRAZOLE 20 MG TABLET,DELAYED RELEASE 90 tablet 1 Sig: Take 1 tablet by mouth once daily. RHETT: No Please review and advise. DELROY Subramanian documented in this encounterUc Medical Center07-20-2022 Miscellaneous Notes* Telephone Encounter - Monik Chinchilla Ma - 03/28/2022 8:47 AM EDT Maranda notified. * Telephone Encounter - Zaida Gaston MD - 03/27/2022 5:27 PM EDT Yes He needs follow up with us anisa * Telephone Encounter - Kirti Rehman RN - 03/27/2022 1:57 PM EDT Maranda from [facility] calling. She reports patient will be discharging from [facility] tomorrow with diagnosis of necrotizing fascitis and left foot diabetic wound. Patient will be going home with a wound vac and IV. She reports Dr. Gomez will be following patient for the wound vac and Dr Rush will be following for IV therapy. Maranda asking if Dr. Gaston will follow patient for PT and OT orders? Please call Maranda at [phone] Thank you documented in this encounterUc Medical Center06-30-2022 History of Present illness Narrative* Chelsea Ryan MD - 03/08/2022 2:44 PM EDT [facility] Follow up Portions of this note [...] mild. Arteriolar hyalinosis, focal. 1 yr: Local Cable Operator: Dr. Montiel Lab Frequency: Monthly Home [...] DAY. DX: 250.E11.9. INSULIN DEP: yes Insulin Dryden, Disposable, (BD ULTRA-FINE SANDRA PEN NEEDLE) 32 gauge x Use as directed four times daily glucagon 3 mg/actuation nasal spray (BAQSIMI) Use 1 [place] in the nose as needed for low [...] Pt's scheduled him to see endocrinology in [facility] for improved glycemic control. Z94.0 Kidney replaced [...] complexity. Chelsea Ryan MD documented in this encounterUc Medical Center06-24-2022 Miscellaneous Notes* Telephone Encounter - Conner LEZAMA - 03/02/2022 4:28 PM EDT Email Address: [email or web address] Patient Demographics: Eddie BURGOS [id number] Date Letter Sent: 03/02/2022 Information Sent: CUTEPDF documented in this encounterUc Medical Center06-08-2022 Miscellaneous Notes* Telephone Encounter - Juvencio Haji [...] advise. Juvencio Haji RN documented in this encounterUc Medical Center05-02-2022 Miscellaneous Notes* Telephone Encounter - Megan Bermudez - 01/08/2022 2:04 PM EDT [facility]: 12/08/21 Patient's request for medication is as follows: Pending Prescriptions Disp Refills PANTOPRAZOLE 20 MG TABLET,DELAYED RELEASE 90 tablet 1 Sig: Take 1 tablet by mouth once daily. RHETT: Yes Please approve the above prescription(s) to electronically send to pharmacy. Megan Bermudez documented in this encounterUc Medical Center04-19-2022 History of Present illness Narrative* Kathy Jurado, Research Coordinator - 12/26/2021 9:23 AM EDT Study Title: IRB# [id number] Validation of genomic immune-phenotyping profiles in peripheral blood genesignatures to predict risk of kidney transplant rejection Visit: Screening/Consent PI: Dr. Jose Link trauma coordinator: Kathy Jurado Study ID Number: [id number] Visit Timepoint: 6 months The patient verbally consents to continue in the research: Yes Labs Drawn: Patient taken to the clinical lab for blood draw. Labs collected at: 08:20 AM Collect Clean Catch Urine Sample: Sample colleted at: 08:20 AM Follow Up: Patient instructed that next study visit will be: 12 months Kathy Jurado [phone] Research Coordinator documented in this encounterUc Medical Center04-01-2022 History of Present illness Narrative* Alana Kent APRN.TRIMMER OPERATOR THREE KNIFE - 12/08/2021 8:47 AM EDT [facility] Follow up Portions of this note [...] mild. Arteriolar hyalinosis, focal. 1 yr: Local Cable Operator: Dr. Montiel Lab Frequency: Every other week Home BP: 150's/80's New Complaints: Feeling well overall Has blisters to all left toes. Taking Amoxicillin, unsure of dose or duration. Being followed by local plumber and tinner No complaints Current Outpatient Medications Medication Sig [...] DAY. DX: 250.E11.9. INSULIN DEP: yes Insulin Dryden, Disposable, (BD ULTRA-FINE SANDRA PEN NEEDLE) 32 gauge x 32 Use as directed four times daily glucagon 3 mg/actuation nasal spray (BAQSIMI) Use 1 [place] in the nose as needed for low [...] 5. Lipids/CV risk: Continue atorvastastin 6. Bone health/senior living corticosteroid use: Ca/phos stable 7. Health maintenance: Up to date 8. Viral screening: BK/CMV negative 9. other: RTC in 2 weeks Alana Kent APRN.TRIMMER OPERATOR THREE KNIFE documented in this encounterUc Medical Center04-09-2019 History of Past illness Narrative* Problem Noted [...] of this encounter (statuses as of 11/23/2022) [facility] Narrative* Problem Noted [...] of this encounter (statuses as of 01/01/2023) [facility] illness Narrative* Problem Noted [...] of this encounter (statuses as of 01/02/2023) [facility] of Past illness Narrative* Problem Noted [...] of this encounter (statuses as of 01/17/2023) [facility] illness Narrative* Problem Noted [...] of this encounter (statuses as of 01/17/2023) [facility] Past illness Narrative* Problem Noted [...] of this encounter (statuses as of 02/26/2023) [facility] Narrative* Problem Noted [...] of this encounter (statuses as of 03/14/2023) [facility] Narrative* Problem Noted [...] of this encounter (statuses as of 03/20/2023) [facility] Narrative* Problem Noted [...] of this encounter (statuses as of 04/03/2023) [facility] Narrative* Problem Noted [...] of this encounter (statuses as of 04/12/2023) [facility] Narrative* Problem Noted [...] of this encounter (statuses as of 05/22/2023) [facility] Narrative* Problem Noted [...] of this encounter (statuses as of 07/02/2023) [facility] Narrative* Problem Noted [...] of this encounter (statuses as of 07/14/2023) [facility] Narrative* Problem Noted [...] of this encounter (statuses as of 07/16/2023) [facility] Narrative* Problem Noted [...] of this encounter (statuses as of 07/20/2023) [facility] Narrative* Problem Noted [...] of this encounter (statuses as of 07/23/2023) [facility] Narrative* Problem Noted [...] of this encounter (statuses as of 07/25/2023) [facility] Narrative* Problem Noted [...] of this encounter (statuses as of 07/31/2023) [facility] Narrative* Problem Noted [...] of this encounter (statuses as of 08/14/2023) [facility] Narrative* Problem Noted [...] of this encounter (statuses as of 08/21/2023) [facility] Narrative* Problem Noted [...] of this encounter (statuses as of 08/24/2023) [facility] N[facility]* Problem Noted [...] of this encounter (statuses as of 08/30/2023) [facility]* Problem Noted [...] of this encounter (statuses as of 09/22/2023) [facility]* Problem Noted [...] of this encounter (statuses as of 10/11/2023) [facility]* Problem Noted [...] of this encounter (statuses as of 10/11/2023) [facility]arr[facility]* Problem Noted [...] of this encounter (statuses as of 10/14/2023) [facility]* Problem Noted [...] of this encounter (statuses as of 10/14/2023) [facility]* Problem Noted [...] of this encounter (statuses as of 10/30/2023) [facility]* Problem Noted [...] of this encounter (statuses as of 11/01/2023) [facility]* Problem Noted [...] of this encounter (statuses as of 11/25/2023) [facility]* Problem Noted [...] of this encounter (statuses as of 11/26/2023) [facility]* Problem Noted [...] of this encounter (statuses as of 11/27/2023) [facility]* Problem Noted [...] of this encounter (statuses as of 12/13/2023) [facility] Problem Noted [...] of this encounter (statuses as of 12/08/2021) [facility] Problem Noted [...] of this encounter (statuses as of 12/20/2021) [facility] Problem Noted [...] of this encounter (statuses as of 12/26/2021) [facility] Problem Noted [...] of this encounter (statuses as of 01/12/2022) [facility] Problem Noted [...] of this encounter (statuses as of 02/14/2022) [facility] Problem Noted [...] of this encounter (statuses as of 03/02/2022) [facility] Problem Noted [...] of this encounter (statuses as of 03/08/2022) [facility] Problem Noted [...] of this encounter (statuses as of 03/28/2022) [facility] Problem Noted [...] of this encounter (statuses as of 03/28/2022) [facility] Problem Noted [...] of this encounter (statuses as of 04/06/2022) [facility] Problem Noted [...] of this encounter (statuses as of 04/10/2022) [facility] Problem Noted [...] of this encounter (statuses as of 04/11/2022) [facility] Problem Noted [...] of this encounter (statuses as of 04/25/2022) [facility] Problem Noted [...] of this encounter (statuses as of 05/17/2022) [facility] Problem Noted [...] of this encounter (statuses as of 05/17/2022) [facility] Problem Noted [...] of this encounter (statuses as of 06/12/2022) [facility] Problem Noted [...] of this encounter (statuses as of 07/05/2022) [facility] Problem Noted [...] of this encounter (statuses as of 07/13/2022) [facility] Problem Noted [...] of this encounter (statuses as of 07/20/2022) [facility] Problem Noted [...] of this encounter (statuses as of 08/01/2022) [facility] Problem Noted [...] of this encounter (statuses as of 08/03/2022) [facility] Problem Noted [...] of this encounter (statuses as of 08/06/2022) [facility] Problem Noted [...] of this encounter (statuses as of 08/07/2022) [facility] Problem Noted [...] of this encounter (statuses as of 08/23/2022) [facility] Problem Noted [...] of this encounter (statuses as of 08/23/2022) [facility] Problem Noted [...] of this encounter (statuses as of 08/23/2022) [facility] Problem Noted [...] of this encounter (statuses as of 08/25/2022) [facility] History of Past illness Narrative* Problem Noted [...] of this encounter (statuses as of 09/24/2022) [facility] History of Past illness Narrative* Problem Noted [...] of this encounter (statuses as of 09/24/2022) [facility] of Past illness Narrative* Problem Noted [...] of this encounter (statuses as of 10/04/2022) [facility] History of Past illness Narrative* Problem Noted [...] of this encounter (statuses as of 10/15/2022) [facility] of Past illness Narrative* Problem Noted [...] of this encounter (statuses as of 11/21/2022) [facility] Past illness Narrative* Problem Noted [...] of this encounter (statuses as of 11/22/2022) [facility] November 01, 2022 10:17am Note Date/Time November 01, 2022 10:16am [facility] Medical Records Department [address] [place] [address] Consultation 11/01/22 1007 MR#: [id number] Acct: [id number] Name: ITALO BURGOS Rep #:[id number] : 1970 51 From: Mayo Levy DPM [...] to transmetatarsal amputation today. No other complaints. [facility] Medical History (Updated 11/01/22 @ 10:[address] aMyo Levy DPM) Acute hypoxemic respiratory failure Acute on chronic diastolic CHF (congestive heart failure) Acute respiratory failure with hypoxia ILDA (acute kidney injury) Anasarca associated with disorder of kidney Anemia of chronic renal failure, stage 4 (severe) Anxiety and depression Atherosclerotic heart disease of [place] coronary artery without angina pectoris Autonomic [...] applicable): CC: Dr. Zaida Gaston MD~ Signed [facility] Work Phone: Discharge summary Author Dona Medina [facility] November 05, 2022 7:23pm Note Date/Time November 05, 2022 7:09pm [facility] Medical Records Department [address] [place] [address] Discharge Summary 11/05/22 1909 MR#: [id number] Acct: [id number] Name: ITALO BURGOS Rep #:[id number] : 1970 51 From: Dona adams DPM PCP: Dr. Zaida Gaston MD Status:ADM I N [facility] Date of Admission: 11/01/22 Date of Discharge: 11/05/22 Primary Care Physician: Dr. Zaida Gaston MD Consultations 11/01/22 14:43 Consult: Hospitalist Routine Consulting Provider: [facility] Reason for Consult: left foot infection, sirg clearance EMERGENT Consult: No MD Notified: Yes Date Notified: 11/01/22 Time Notified: 11:00 Method of Notification: ED Physician Initiated Consult: Infectious Disease Routine Consulting Provider: Satish Nava Reason for Consult: left foot infection, TMA today EMERGENT Consult: No MD Notified: Yes Date Notified: 11/01/22 Time Notified: 15:54 Method of Notification: Answering Service Consult: Onc/Wound/burglar alarm assembler Routine Comment: Reason For Visit: wound Diagnosis [...] Medina Jr. D.P.M. [facility] [phone] Medications at Discharge Home Medications insulin lispro [...] left foot. He was sent to the [facility] ED for admitting and receiving of IV antibiotics. Patient did undergo lab work along with chest x-ray and EKG in order for surgical clearance. Medicine team did follow for medical management. Cleaning Porter on-call, Dr. Levy performed transmetatarsal amputation of [...] Henderson ; Awa Martínez ; Vivian Garrison [employer] ; John Funes [employer] ; Faviola Josue ; Satish Nava Discharge [...] IRIS Medina; Dr. Zaida Gaston MD~ Signed [facility] Work Phone: Discharge summary Author Dona Medina [facility] November 05, 2022 7:13pm Note Date/Time November 05, 2022 7:13pm [facility] Medical Records Department [address] [place] [address] Instructions for Home/Discharge Instructions 11/05/22 190 MR#: [id number] Acct: [id number] Name: ITALO BURGOS Rep #:[id number] : 1970 51 From: Dona adams DPM [...] by Dona Medina DPM>Dona Medina DPM CC: [employer] Vivian Garrison; [employer] John Funes; AJ Josue; Delmy Billy; Dr. Amy Ureña MD; Dr. Zaida Gaston MD; Dr. William Hayes DO; Dr. Kendra MD; Dr. Awa Martínez MD; Dr. Satish Nava MD ~ Signed [facility] Work Phone: Evaluation note* Diagnosis S/P kidney transplant- Primary Kidney replaced by transplant Immunosuppressive management encounter following kidney transplant Encounter for long-term (current) use of other medications [facility] Onset Date Resolution Status Hyperglycemia resolved Hyperkalemia resolved [facility] Work Phone: Evaluation note* Diagnosis Research subject- Primary [facility] Diagnosis Onset Date Resolution Status Hyperglycemia resolved Hyperkalemia resolved Type 2 diabetes mellitus with diabetic polyneuropathy acute 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 exposed chronic Non-pressure chronic ulcer o f other part of right foot with fat layer exposed chronic [facility] Work Phone: Evaluation note* Diagnosis Onset Date Resolution Status Type 2 diabetes mellitus with diabetic polyneuropathy acute 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 exposed chronic Non-pressure chronic ulcer o f other part of right foot with fat layer exposed chronic Renal transplant recipient a cute Atherosclerotic 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 angina pectoris chronic Essential hypertension chron ic HLD (hyperlipidemia) chronic Type 2 diabetes mellitus with diabetic polyneuropathy acute 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 exposed chronic Non-pressure chronic ulcer o f other part of right foot with fat layer exposed chronic [facility] Work Phone: Evaluation note* Diagnosis Kidney replaced by transplant- Primary Encounter for aftercare following kidney transplant Aftercare following organ transplant Post-transplant erythrocytosis Polycythemia, secondary Immunosuppressive management encounter following kidney transplant Encounter for long-term (current) use of other medications [facility] Diagnosis Onset Date Resolution Status Type 2 diabetes mellitus with diabetic polyneuropathy acute 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 exposed chronic Non-pressure chronic ulcer o f other part of right foot with fat layer exposed chronic Renal transplant recipient a cute Atherosclerotic 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 angina pectoris chronic [...] chronic Other specified peripheral vascular diseases chronic [facility] Work Phone: Evaluation note* Diagnosis Onset Date Resolution Status Type 2 diabetes mellitus with diabetic polyneuropathy acute 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 exposed chronic Non-pressure chronic ulcer o f other part of right foot with fat layer exposed chronic Renal transplant recipient a cute Atherosclerotic 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 angina pectoris chronic [...] hyperglycemia acute ILDA (acute kidney injury) ac pauma Diabetic foot infection acut e Necrotizing fasciitis acute Sepsis acute [facility] Work Phone: Evaluation note* Diagnosis Onset Date Resolution Status Type 2 diabetes mellitus with diabetic polyneuropathy acute 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 exposed chronic Non-pressure chronic ulcer o f other part of right foot with fat layer exposed chronic Renal transplant recipient a cute Atherosclerotic 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 angina pectoris chronic [...] hyperglycemia acute ILDA (acute kidney injury) ac pauma Bacteremia acute Cellulitis of left lower limb [...] with fat layer exposed chronic Noncompliance chronic [facility] Work Phone: Evaluation note* Diagnosis Kidney replaced by transplant- Primary [facility] Diagnosis Onset Date Resolution Status Non-pressure chronic ulcer o f other part of right foot with fat layer exposed chronic Atherosclerotic 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 angina pectoris chronic [...] vascular diseases chronic Bacteremia resolved Sepsis resolved [facility] Work Phone: Evaluation note* Diagnosis Amputation of little toe, initial encounter (HCC)- Primary Necrotizing fasciitis (HCC) Necrotizing fasciitis Diabetic ulcer of left foot associated with type 2 diabetes mellitus, with muscle involvement without evidence of necrosis, unspecified part of foot (HCC) Osteomyelitis of toe (HCC) Unspecified osteomyelitis, ankle and foot [facility] Diagnosis Onset Date Resolution Status Atherosclerotic 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 angina pectoris chronic [...] 2 diabetes mellitus with diabetic polyneuropathy chronic [facility] Work Phone: Evaluation note* Diagnosis Onset [...] Type 2 diabetes mellitus with diabetic polyneuropathy [facility] Work Phone: Evaluation note* Diagnosis Kidney replaced by transplant- Primary [facility] Diagnosis Encounter for aftercare following kidney transplant- Primary Aftercare following organ transplant Kidney replaced by transplant Immunosuppressive management encounter following kidney transplant Encounter for long-term (current) use of other medications Essential hypertension Unspecified essential hypertension Transaminitis Nonspecific elevation of levels of transaminase or lactic acid dehydrogenase (LDH) documented in this encounter [facility] note* Diagnosis Controlled type 2 diabetes mellitus without complication, without long-term current use of insulin ([facility])- Primary Uncontrolled hypertension Unspecified essential hypertension Need for influenza vaccination Need for prophylactic vaccination and inoculation against influenza [facility]* Diagnosis Controlled type 2 diabetes mellitus without complication, without long-term current use of insulin ([facility])- Primary documented in this encounter [facility] note* Diagnosis Kidney replaced by transplant- Primary Encounter for aftercare following kidney transplant Aftercare following organ transplant Immunosuppressive management encounter following kidney transplant Encounter for long-term (current) use of other medications Essential hypertension Unspecified essential hypertension documented in this encounter [facility] note* Diagnosis Type 1 diabetes mellitus on insulin therapy ([facility])- Primary Type I (juvenile type) diabetes mellitus without mention of complication, not stated as uncontrolled Medication management Encounter for long-term (current) use of other medications documented in this encounter [facility] note* Diagnosis Diabetic ulcer of left foot associated with type 1 diabetes mellitus, unspecified part of foot, unspecified ulcer stage (HCC)- Primary Other hyperlipidemia Hypertension goal BP (blood pressure) < 140/90 Unspecified essential hypertension Diabetic polyneuropathy associated with type 2 diabetes mellitus ([facility]) 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 ([facility]) End stage renal disease Type 1 diabetes mellitus on insulin therapy (HCC) Type I (juvenile type) diabetes mellitus without mention of complication, not stated as uncontrolled Moderate episode of recurrent major depressive disorder ([facility]) documented in this encounter [facility] note* Diagnosis Onset Date Resolution Status History [...] polyneuropathy chronic Atherosclerotic 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 angina pectoris chronic Diabetic foot ulcer acute [id number] acute 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 acute 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 exposed acute Osteomyelitis of metatarsal acute 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 [facility] Work Phone: Evaluation note* Diagnosis Onset [...] polyneuropathy chronic Atherosclerotic 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 angina pectoris chronic Diabetic foot ulcer chronic Obesity (BMI 30-39.9) chroni c 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 [id number] acute 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 acute 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 exposed acute Osteomyelitis of metatarsal acute Diabetic foot ulcer chronic 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 [facility] Work Phone: Evaluation note* Diagnosis Type 1 diabetes mellitus on insulin therapy (HCC)- Primary Type I (juvenile type) diabetes mellitus without mention of complication, not stated as uncontrolled [facility] Diagnosis Kidney replaced by transplant- Primary Immunosuppressive management encounter following kidney transplant Encounter for long-term (current) use of other medications Mixed hyperlipidemia [facility] Diagnosis Type 1 diabetes mellitus on insulin therapy (HCC)- Primary Type I (juvenile type) diabetes mellitus without mention of complication, not stated as uncontrolled [facility] Diagnosis Onset Date Resolution Status History [...] polyneuropathy chronic Atherosclerotic 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 angina pectoris chronic Diabetic foot ulcer chronic Obesity (BMI 30-39.9) chroni c 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 [id number] acute 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 acute 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 exposed acute Osteomyelitis of metatarsal acute Diabetic foot ulcer chronic 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 [id number] acute 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 acute 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 exposed acute Osteomyelitis of metatarsal acute Diabetic foot ulcer chronic 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 [facility] Work Phone: Evaluation note* Diagnosis Onset [...] polyneuropathy chronic Atherosclerotic 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 angina pectoris chronic Diabetic foot ulcer chronic Obesity (BMI 30-39.9) chroni c 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 [id number] acute 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 acute 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 exposed acute Osteomyelitis of metatarsal acute Diabetic foot ulcer chronic 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 [id number] acute History of partial ray amput ation [...] (severe) chronic Atherosclerotic 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 angina pectoris chronic Chronic renal failure, stage 4 (severe) chronic Diabetic nephropathy chronic 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 Other specified peripheral vascular diseases [facility] Work Phone: Evaluation note* Diagnosis [...] a cute Atherosclerotic 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 angina pectoris chronic Diabetic foot ulcer chronic Obesity (BMI 30-39.9) chroni c 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 [id number] acute 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 acute 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 exposed acute Osteomyelitis of metatarsal acute Diabetic foot ulcer chronic 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 [id number] acute History of partial ray amput ation [...] (severe) chronic Atherosclerotic 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 angina pectoris chronic Chronic renal failure, stage 4 (severe) chronic Diabetic nephropathy chronic 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 Other specified peripheral vascular diseases [facility] Work Phone: Evaluation note* Diagnosis Moderate episode of recurrent major depressive disorder (HCC) [facility] Diagnosis Type 1 diabetes mellitus on insulin therapy (HCC)- Primary Type I (juvenile type) diabetes mellitus without mention of complication, not stated as uncontrolled [facility] Diagnosis Moderate episode of recurrent [...] Unspecified essential hypertension [facility] Diagnosis Kidney replaced by transplant- Primary Encounter for aftercare following kidney transplant Aftercare following organ transplant Immunosuppressive management encounter following kidney transplant Encounter for long-term (current) use of other medications ILDA (acute kidney injury) (HCC) Acute kidney failure, unspecified [facility] Diagnosis Onset Date Resolution Status [id number] acute History of partial ray amput ation [...] (severe) chronic Atherosclerotic 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 angina pectoris chronic [...] Type 2 diabetes mellitus with hyperglycemia chronic [facility] Work Phone: Evaluation note* Diagnosis Kidney replaced by transplant- Primary [facility] Diagnosis Hypertension goal BP (blood pressure) < 140/90- Primary Unspecified essential hypertension Other hyperlipidemia Type 1 diabetes mellitus on insulin therapy (HCC) Type I (juvenile type) diabetes mellitus without mention of complication, not stated as uncontrolled Moderate episode of recurrent major depressive disorder (HCC) Diarrhea, unspecified type Pain of right lower extremity Left leg claudication ([facility]) Peripheral vascular disease, unspecified Viral wart on finger [facility] Diagnosis Onset Date Resolution Status Diabetic nephropathy chronic Obesity (BMI 30-39.9) chroni c Type 2 diabetes mellitus with hyperglycemia chronic Renal transplant recipient a cute Atherosclerotic 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 angina pectoris chronic [facility] Work Phone: Evaluation note* Diagnosis Encounter for aftercare following kidney transplant- Primary Aftercare following [facility] Pain of right lower extremity [facility] Diagnosis Diabetic polyneuropathy associated with type 2 diabetes mellitus (HCC)- Primary Moderate episode of recurrent major depressive disorder (HCC) Kidney transplant recipient Elevated alkaline phosphatase level Other nonspecific abnormal serum enzyme levels Erectile dysfunction, unspecified erectile dysfunction type Mixed hyperlipidemia [facility] Diagnosis Kidney replaced by transplant- Primary Vitamin D deficiency Unspecified vitamin D deficiency Erectile dysfunction, unspecified erectile dysfunction type Immunosuppressive management encounter following kidney transplant Encounter for long-term (current) use of other medications PTE (post-transplant erythrocytosis) Polycythemia, secondary [facility] Diagnosis Kidney replaced by transplant- Primary [facility] Diagnosis Kidney replaced by transplant- Primary High risk medication use Encounter for long-term (current) use of other medications Vitamin D deficiency Unspecified vitamin D deficiency [facility] Diagnosis Kidney replaced by transplant- Primary [facility] Diagnosis Impotence Impotence of organic origin [facility] Diagnosis Impotence of organic origin- Primary [facility] Diagnosis Type 1 diabetes mellitus on insulin therapy (HCC)- Primary Type I (juvenile type) diabetes mellitus without mention of complication, not stated as uncontrolled Kidney transplant recipient Hypertension goal BP (blood pressure) < 140/90 Unspecified essential hypertension Moderate episode of recurrent major depressive disorder (HCC) LUANNE (obstructive sleep apnea) Obstructive sleep apnea (adult) (pediatric) [facility] Diagnosis Moderate episode of recurrent major depressive disorder (HCC) [facility] Moderate episode of recurrent major depressive disorder (HCC) [facility] Diagnosis Impotence of organic origin [facility] Diagnosis Diarrhea, unspecified type- Primary Mixed hyperlipidemia Kidney transplant recipient Diabetic polyneuropathy associated with type 2 diabetes mellitus (HCC) [facility] Diagnosis Immunosuppressed status (HCC)- Primary Unspecified disorder of immune mechanism Kidney replaced by transplant [facility] Diagnosis Diabetic polyneuropathy associated with type 2 diabetes mellitus (HCC) [facility]* Diagnosis Onset Date Resolution Status Obesity (BMI 30-39.9) chroni c Polyneuropathy chronic 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 Renal transplant recipient a cute Atherosclerotic 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 angina pectoris chronic Chronic renal failure, stage 4 (severe) chronic Hypertension chronic Obesity (BMI 30-39.9) chroni c Type 2 diabetes mellitus with hyperglycemia chronic [facility] Work Phone: Evaluation note* Diagnosis Kidney replaced by transplant- Primary [facility] Diagnosis Type 1 diabetes mellitus on [...] apnea (adult) (pediatric) documented in this encounter [facility] note* Diagnosis Moderate episode of recurrent major depressive disorder (HCC)- Primary [facility]* Diagnosis Diarrhea, unspecified type- Primary Gastroesophageal reflux disease without esophagitis Esophageal reflux FH: colon cancer in first degree relative <60 years old documented in this encounter [facility] note* Diagnosis Nausea and vomiting, unspecified vomiting type- Primary Diarrhea, unspecified type documented in this encounter [facility] note* Diagnosis Type 2 diabetes mellitus with [...] stated as uncontrolled documented in this encounter [facility] note* Diagnosis Type 2 diabetes mellitus with [...] kidney disease (HCC) documented in this encounter [facility] note* Diagnosis Type 2 diabetes mellitus with [...] depressive disorder (HCC) documented in this encounter [facility] note* Diagnosis Type 2 diabetes mellitus with [...] stated as uncontrolled documented in this encounter [facility] note* Diagnosis Type 2 diabetes mellitus with [...] esophagitis Esophageal reflux [facility] noteNo assessment information availableWGrand [facility] Work Phone: Evaluation note* Diagnosis [...] unspecified hydronephrosis type [facility] Diagnosis Type 2 diabetes mellitus with [...] of other medications documented in this encounter [facility] note* Diagnosis Type 2 diabetes mellitus with [...] stated as uncontrolled [facility] Diagnosis Type 2 diabetes mellitus with [...] unspecified genitourinary condition [facility] Diagnosis Type 2 diabetes mellitus with [...] replaced by transplant [facility] Author Dr. Levy [facility] November 01, 2022 10:43am Note Date/Time November 01, 2022 10:42am [facility] Medical Records Department [address] [place] [address] History & Physical Exam 11/01/22 1041 MR#: [id number] Acct: [id number] Name: ITALO BURGOS Rep #:[id number] : 1970 51 From: Mayo Levy DPM PCP: Dr. Zaida Gaston MD Status:REG S IN Location: [place] [address] HPI - General General Date of Admission: [...] to transmetatarsal amputation today.? No other complaints. [facility] Medical History Acute hypoxemic respiratory failure Acute on chronic diastolic CHF (congestive heart failure) Acute respiratory failure with hypoxia ILDA (acute kidney injury) Anasarca associated with disorder of kidney Anemia of chronic renal failure, stage 4 (severe) Anxiety and depression Atherosclerotic heart disease of [place] coronary artery without angina pectoris Autonomic [...] % (Auto) 67.5, Lymph % (Auto) 21.1, [place]% (Auto) 9.7, Eos % (Auto) 0.9, Baso [...] IRIS Levy; Dr. Zaida Gaston MD~ Signed [facility] Work Phone: Hospital Discharge instructions Additional Instructions Your creatinine 2.1. You are given a liter follow-up with us. Use Reglan as needed for dizziness symptoms. Follow-up your doctor recheck labs.[facility] Work Phone: Progress note Author Dona [place] November 05, 2022 7:08pm Note Date/Time November 05, 2022 7:08pm [facility] Medical Records Department [address] [place] [address] Progress Note 11/05/221902 MR#: [id number] Acct: [id number] Name: ITALO BURGOS Rep #:[id number] : 1970 51 From: Dona adams DPM PCP: Dr. Zaida Gaston MD Status:ADM I N Location: [place]3 CG683-4 Subjective Subjective Patient was seen bedside sitting [...] Howie ParedesP.M. [facility] [phone] 11/05/221907 <Electronically signed by Dona Medina DPM> Dona Vazquez Cosigner Signature (if applicable): CC: ~ Signed [facility] Work Phone: Reason for referral (narrative)* Outpatient Procedure (Routine) - Authorized Specialty Diagnoses / Procedures Referred By Contac t Referred To Contact [facility] Diagnoses Left leg claudication (HCC) Procedures PVR LEG W/EXC ROLY VAS LAB N-INVAS PHYSIOLOGIC STD [place] [address] [place], [place] [id number] [place] [phone] Referral ID Status Reason Start Date Expiration Date Visits Requested Visits Authorized [id number] Authorized Auto-Generat ed Referral 02/25/2023 02/25/2024 1 1 * Outpatient Procedure (Routine) - Authorized Specialty Diagnoses / Procedures Referred By Contac t Referred To Contact [facility] Diagnoses Pain of right lower extremity Procedures US LEG VEIN DVT UNL VAS LAB DUP-SCAN XTR VEINS UNILATERAL/LIMITED STUDY Zaida Gaston MD [address] [place] [address] [place] [phone] Referral ID Status Reason Start Date Expiration Date Visits Requested Visits Authorized [id number] Authorized Auto-Generat ed Referral 02/25/2023 02/25/2024 1 1 * Consult, Test, Treat (Routine) - Pending Review Specialty Diagnoses / Procedures Referred By Contac t Referred To Contact Gastroenterology Diagnoses Diarrhea, unspecified type Procedures CONSULT TO GASTROENTEROLOGY OFFICE/OUTPATIENT [facility] HIGH MDM 60-74 MINUTES Zaida Gaston MD [address] [place] [address] Referral ID Status Reason Start Date Expiration Date Visits Requested Visits Authorized [id number] Pending Review PCP Requested Referral 02/25/2023 02/25/2024 1 1 [facility] for referral (narrative)* Outpatient Procedure (Routine) - New Request Specialty Diagnoses / Procedures Referred By Contac t Referred To Contact [facility] Diagnoses Diarrhea, unspecified type Procedures COLONOSCOPY DIAGNOSTIC COLONOSCOPY FLX DX W/COLLJ SPEC WHEN Nia Anne APRN.TRIMMER OPERATOR THREE KNIFE [address] [place] [address] [facility] [address] [address] Referral ID Status Reason Start Date Expiration Date Visits Requested Visits Authorized [id number] New Request Auto-Generat ed Referral 03/24/2024 03/24/2025 1 1 * Outpatient Procedure (Routine) - New Request Specialty Diagnoses / Procedures Referred By Contac t Referred To Contact [facility] Diagnoses Diarrhea, unspecified type Procedures EGD DIAGNOSTIC ESOPHAGOGASTRODUODENOSC OPY TRANSORAL DIAGNOSTIC Nia James APRN.TRIMMER OPERATOR THREE KNIFE [address] [place] [address] [facility] [place] [phone] Referral ID Status Reason Start Date Expiration Date Visits Requested Visits Authorized [id number] New Request Auto-Generat ed Referral 03/24/2024 03/24/2025 1 1 [facility] for referral (narrative)* Outpatient Procedure (Routine) - Closed Specialty Diagnoses / Procedures Referred By Contac t Referred To Contact Diagnoses Diarrhea, unspecified type Procedures COLONOSCOPY DIAGNOSTIC COLONOSCOPY FLX DX W/COLLJ SPEC WHEN Nia Anne APRN.TRIMMER OPERATOR THREE KNIFE [address] [place] [address] [facility] [address] [place] [address] Referral ID Status Reason Start Date Expiration Date V isits Requested Visits Authorized [id number] Closed Auto-Generate d Referral 04/01/2024 03/24/2025 1 1 * Outpatient Procedure (Routine) - Closed Specialty Diagnoses / Procedures Referred By Contac t Referred To Contact [facility] Diagnoses Diarrhea, unspecified type Procedures EGD DIAGNOSTIC ESOPHAGOGASTRODUODENOSC OPY TRANSORAL DIAGNOSTIC Nia James APRN.TRIMMER OPERATOR THREE KNIFE [address] [place] [address] [facility] [address] [address] Referral ID Status Reason Start Date Expiration Date V isits Requested Visits Authorized [id number] Closed Auto-Generate d Referral 03/24/2024 03/24/2025 1 1 [facility] for referral (narrative)No reason for referral information availableWGrand Lake [facility] Work Phone: Reason for visit Narrative* Outpatient Procedure (Routine) - Closed Specialty Diagnoses / Procedures Referred By Contac t Referred [facility] Diagnoses Pain of right lower extremity Procedures US LEG VEIN DVT UNL VAS LAB DUP-SCAN XTR VEINS UNILATERAL/LIMITED STUDY Zaida Gaston MD [address] [place] [address] [facility] [place] [address] [address] Referral ID Status Reason Start Date Expiration Date V isits Requested Visits Authorized [id number] Closed Auto-Generate d Referral 02/25/2023 02/25/2024 1 1 [facility] for visit Narrative* Outpatient Procedure (Routine) - Closed Specialty Diagnoses / Procedures Referred By Contac t Referred To Contact Diagnoses Diarrhea, unspecified type Procedures COLONOSCOPY DIAGNOSTIC COLONOSCOPY FLX DX W/COLLJ SPEC WHEN PFRMD Nia James, [place].TRIMMER OPERATOR THREE KNIFE [address] [place] [address] [facility] [address] [place] [address] Referral ID Status Reason Start Date Expiration Date V isits Requested Visits Authorized [id number] Closed Auto-Generate d Referral 04/01/2024 03/24/2025 1 1 [facility] Advance Directives No Advanced Directives Records FoundDocuments on File Type Date Recorded 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 Advance Directive(s) 05/13/2025 12:02 PM [...] Documents on File Type Date Recorded 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 Advance Directive(s) 06/22/2021 9:47 AM Advance Directive(s) 03/09/2021 6:34 PM Advance Directive(s) 03/15/2020 7:10 AM Advance Directive(s) 02/23/2020 11:11 AM Advance Directive(s) 12/04/2018 6:31 AM Advance Directive(s) 11/22/2017 9:25 AM Advance Directive Response Recorded Date/ Time Name of Medical Power of Veneer Glue Spreader lowell benedict [place] September 14, 2021 9:48am Advance Directives Yes October 11:51am Living Will Yes September 18 1:30am Power of Veneer Glue Spreader Yes September 18, 2021 1:30am Advance Directive Response Recorded Date/ Time Advance Directives Yes October 11:51am Living Will Yes September 18 1:30am Power of Veneer Glue Spreader Yes September 18, 2021 1:30am Advance Directive Response Recorded Date/ Time Name of Medical Power of Veneer Glue Spreader [place] March 24, 2022 1:04am Advance Directives Yes October 11:51am Living Will Yes March 24, 2022 1:04am Power of Veneer Glue Spreader Yes March 24 1:04am Advance Directive Response Recorded Date/ Time Name of Medical Power of Veneer Glue Spreader [facility] March 24, 2022 3:32am Advance Directives Yes October 11:51am Living Will Yes March 24, 2022 3:32am Power of Veneer Glue Spreader Yes March 24 3:32am Advance Directive Response Recorded Date/ Time Advance Directives Yes October 10:51am Living Will No August 28, 022 10:08am Power of Veneer Glue Spreader No August 28, 2022 10:08am Advance Directive Response Recorded Date/ Time Name of Medical Power of Veneer Glue Spreader [facility] November 01, 2022 9:38am Advance Directives Yes October 10:51am Living Will Yes November 01 023 9:38am Power of Veneer Glue Spreader Yes November 01, 2022 9:38am Advance Directive Response Recorded Date/ Time Name of Medical Power of Veneer Glue Spreader [facility] November 01, 2022 3:47pm Advance Directives Yes October 10:51am Living Will Yes November 01, 023 3:47pm Power of Veneer Glue Spreader Yes November 01, 2022 3:47pm Advance Directive Response Recorded Date/ Time Name of Medical Power of Veneer Glue Spreader [facility] November 01, 2022 4:47pm Advance Directives Yes October 11:51am Living Will Yes November 01, 023 4:47pm Power of Veneer Glue Spreader Yes November 01, 2022 4:47pm Advance Directive Response Recorded Date/ Time Advance Directives Yes October 11:51am Living Will No March 13, 2023 1 0:28pm Power of Veneer Glue Spreader No March 13, 2023 10:28pm Advance Directive Response Recorded Date/ Time Living Will No March 13, 2023 1 0:28pm Power of Veneer Glue Spreader No March 13, 2023 10:28pm Living Will Yes November 19, 2024 2:23pm Power of Veneer Glue Spreader Yes November 19 2:23pm Name of Medical Power of Veneer Glue Spreader Ying [place] November 19, 2024 2:23pm Advance Directives Yes October 11:51am Advance Directive Response Recorded Date/ Time Do you have a Healthcare Pow er of Veneer Glue Spreader? Yes January 26, 2025 4:27pm Living Will Yes November 19, 2024 2:23pm Do you have a Healthcare Pow er of Veneer Glue Spreader? Yes November 19, 2024 2:23pm Name of Medical Power of Veneer Glue Spreader Ying Trinh November 19, 2024 2:23pm Advance Directives Yes October 11:51am Date Activated Date Inactivated Comments 01/27/2025 6:59 AM 01/29/2025 7:09 PM Question Answer Comments Full Code Order Discussed With: Patient Advance Directive Response Recorded Date/ Time Do you have a Healthcare Pow er of Veneer Glue Spreader? Yes January 26, 2025 4:27pm Do you have a Healthcare Pow er of Veneer Glue Spreader? No February 07, 2025 3:54pm Living Will Yes November 19, 2024 2:23pm Do you have a Healthcare Pow er of Veneer Glue Spreader? Yes November 19, 2024 2:23pm Name of Medical Power of Veneer Glue Spreader Ying Trinh November 19, 2024 2:23pm Advance Directives Yes October 11:51am Advance Directive Response Recorded Date/ Time Do you have a Healthcare Pow er of Veneer Glue Spreader? Yes January 26, 2025 4:27pm Do you have a Healthcare Pow er of Veneer Glue Spreader? No February 07, 2025 3:54pm Living Will Yes November 19, 2024 2:23pm Do you have a Healthcare Pow er of Veneer Glue Spreader? Yes November 19, 2024 2:23pm Name of Medical Power of Veneer Glue Spreader Ying Trinh November 19, 2024 2:23pm Do you have a Healthcare Pow er of Veneer Glue Spreader? No March 10, 2025 11:29am Advance Directives Yes October 11:51am Advance Directive Response Recorded Date/ Time Do you have a Healthcare Power of Veneer Glue Spreader? Yes January 26, 2025 4:27pm Do you have a Healthcare Power of Veneer Glue Spreader? No February 07, 2025 3:54pm Do you have a Healthcare Power of Veneer Glue Spreader? Yes April 04, 2025 11:10am Do you have a Healthcare Power of Veneer Glue Spreader? No March 10, 2025 11:29am Advance Directives Yes October 11:51am Advance Directive Response Recorded Date/ Time Do you have a Healthcare Power of Veneer Glue Spreader? Yes January 26, 2025 4:27pm Do you have a Healthcare Power of Veneer Glue Spreader? No February 07, 2025 3:54pm Do you have a Healthcare Power of Veneer Glue Spreader? Yes April 04, 2025 11:10am Do you have a Healthcare Power of Veneer Glue Spreader? No March 10, 2025 11:29am Do you have a Healthcare Power of Veneer Glue Spreader? No April 14, 2025 5:29pm Advance Directives Yes October 11:51am Advance Directive Response Recorded Date/ Time Do you have a Healthcare Power of Veneer Glue Spreader? Yes January 26, 2025 4:27pm Do you have a Healthcare Power of Veneer Glue Spreader? No February 07, 2025 3:54pm Do you have a Healthcare Power of Veneer Glue Spreader? Yes April 04, 2025 11:10am Do you have a Healthcare Power of Veneer Glue Spreader? No March 10, 2025 11:29am Do you have a Healthcare Power of Veneer Glue Spreader? 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 Advance Directive(s) 05/13/2025 12:02 PM [...] Renal transplant recipient Atherosclerotic heart disease of [place] coronary artery without angina pectoris Essential [...] Renal transplant recipient Atherosclerotic heart disease of [place] coronary artery without angina pectoris Essential [...] Renal transplant recipient Atherosclerotic heart disease of [place] coronary artery without angina pectoris Essential [...] Renal transplant recipient Atherosclerotic heart disease of [place] coronary artery without angina pectoris Essential [...] fat layer exposed Atherosclerotic heart disease of [place] coronary artery without angina pectoris Non-pressure [...] fat layer exposed Atherosclerotic heart disease of [place] coronary artery without angina pectoris Non-pressure [...] for Visit Atherosclerotic hear t disease of [place] coronary artery without angina pectoris Non-pressure [...] with diabetic polyneuropathy Atherosclerotic heart disease of [place] coronary artery without angina pectoris Diabetic foot ulcer [id number] History of partial ray amputation of fifth [...] with diabetic polyneuropathy Atherosclerotic heart disease of [place] coronary artery without angina pectoris Diabetic foot ulcer Obesity (BMI 30-39.9) Type 2 diabetes mellitus with diabetic polyneuropathy [id number] History of partial ray amputation of fifth [...] with diabetic polyneuropathy Atherosclerotic heart disease of [place] coronary artery without angina pectoris Diabetic foot ulcer Obesity (BMI 30-39.9) Type 2 diabetes mellitus with diabetic polyneuropathy [id number] 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 Diabetic foot ulcer Type 2 diabetes mellitus with diabetic polyneuropathy [id number] History of partial ray amputation of fifth [...] with diabetic polyneuropathy Atherosclerotic heart disease of [place] coronary artery without angina pectoris Diabetic foot ulcer Obesity (BMI 30-39.9) Type 2 diabetes mellitus with diabetic polyneuropathy [id number] 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 Diabetic foot ulcer Type 2 diabetes mellitus with diabetic polyneuropathy [id number] History of partial ray amputation of fifth [...] stage 4 (severe) Atherosclerotic heart disease of [place] coronary artery without angina pectoris Chronic [...] Renal transplant recipient Atherosclerotic heart disease of [place] coronary artery without angina pectoris Diabetic foot ulcer Obesity (BMI 30-39.9) Type 2 diabetes mellitus with diabetic polyneuropathy [id number] 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 Diabetic foot ulcer Type 2 diabetes mellitus with diabetic polyneuropathy [id number] History of partial ray amputation of fifth [...] stage 4 (severe) Atherosclerotic heart disease of [place] coronary artery without angina pectoris Chronic renal failure, stage 4 (severe) Diabetic nephropathy Non-pressure chronic ulcer of other part of left foot with necrosis of bone Other specified peripheral vascular diseases Chief Complaint WOUND/PVD MULTIPLE T OE ULCERS 6 wk FU WOUND/PVD MULTIPLE TOE ULCERS wound wound PREOP wound wound wound E ORDER 2 M FU Reason for Visit [id number] History of partial ray amputation of fifth [...] stage 4 (severe) Atherosclerotic heart disease of [place] coronary artery without angina pectoris Chronic [...] Renal transplant recipient Atherosclerotic heart disease of [place] coronary artery without angina pectoris Chief Complaint 2 M FU 9 M FU 2.5 M FU E ORDERS Reason for Visit Obesity (BMI 30-39.9 ) Polyneuropathy Type 2 diabetes mellitus with diabetic polyneuropathy Renal transplant recipient Atherosclerotic heart disease of [place] coronary artery without angina pectoris Chronic renal failure, stage 4 (severe) Hypertension Obesity (BMI 30-39.9) Type 2 diabetes mellitus with hyperglycemia Chief Complaint 2 M FU 9 M FU 2.5 M FU E ORDERS ELEVATED LIVER ENZYMES Reason for Visit Obesity (BMI 30-39.9 ) Polyneuropathy Type 2 diabetes mellitus with diabetic polyneuropathy Renal transplant recipient Atherosclerotic heart disease of [place] coronary artery without angina pectoris Chronic [...] insulin (HCC) Procedures CONSULT TO ENDOCRINOLOGY OFFICE/OUTPATIENT [facility] 60-74 MINUTES Zaida Gaston MD [address] [place] [address] Referral ID Status Reason Start Date Expiration Date Visits Requested Visits Authorized [id number] Pending Review PCP Requested Referral 2 07/31/2023 1 1 Specialty Diagnoses / Procedures Referred By Carloz alarcon Referred To Contact Alana Kent APRN.CNP [address] [place] [address] Referral ID Status Reason Start Date Expiration Date Visits Re quested Visits Authorized [id number] Closed 1 1 Specialty Diagnoses / Procedures Referred By Carloz alarcon Referred To Contact Urology Diagnoses Erectile dysfunction, unspecified erectile dysfunction type Procedures CONSULT TO UROLOGY OFFICE/OUTPATIENT NEW HIGH MDM 60-74 MINUTES Alana Kent APRN.TRIMMER OPERATOR THREE KNIFE [address] [place] [address] Referral ID Status Reason Start Date Expiration Date Visits Requested Visits Authorized [id number] Authorized PCP Requested Referral 07/15/2023 07/14/2024 1 1 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) Colon cancer screening Type 1 diabetes mellitus on insulin therapy (HCC) Kidney transplant recipient Procedures CONSULT TO GENERAL SURGERY OFFICE/OUTPATIENT NEW HIGH MDM 60 MINUTES Delia Kaufman APRN.TRIMMER OPERATOR THREE KNIFE [address] [place] [address] Referral ID Status Reason Start Date Expiration Date Visits Requested Visits Authorized [id number] Authorized PCP Requested Referral 01/22/2024 01/21/2025 1 1 Summary Purpose Additional Source Comments Source Comments (unrecognize d section and content) In the event this informatio n is protected by the Federal Confidentiality of Alcohol and Drug Abuse Patient Records regulations: The Federal rules restrict any use of the information to criminally investigate or prosecute any alcohol or drug abuse patient.[facility] the event this information is protected by the Federal Confidentiality of Alcohol and Drug Abuse Patient Records regulations: The Federal rules restrict any use of the information to criminally investigate or prosecute any alcohol or drug abuse patient.[facility] the event this information is protected by the Federal Confidentiality of Alcohol and Drug Abuse Patient Records regulations: The Federal rules restrict any use of the information to criminally investigate or prosecute any alcohol or drug abuse patient.[facility] the event this information is protected by the Federal Confidentiality of Alcohol and Drug Abuse Patient Records regulations: The Federal rules restrict any use of the information to criminally investigate or prosecute any alcohol or drug abuse patient.[facility] Center[facility] the event this information is protected by the Federal Confidentiality of Alcohol and Drug Abuse Patient Records regulations: The Federal rules restrict any use of the information to criminally investigate or prosecute any alcohol or drug abuse patient.[facility] Center[facility] the event this information is protected by the Federal Confidentiality of Alcohol and Drug Abuse Patient Records regulations: The Federal rules restrict any use of the information to criminally investigate or prosecute any alcohol or drug abuse patient.[facility] Center[facility] the event this information is protected by the Federal Confidentiality of Alcohol and Drug Abuse Patient Records regulations: The Federal rules restrict any use of the information to criminally investigate or prosecute any alcohol or drug abuse patient.[facility] CenterIn the event this information is protected by the Federal Confidentiality of Alcohol and Drug Abuse Patient Records regulations: The Federal rules restrict any use of the information to criminally investigate or prosecute any alcohol or drug abuse patient.[facility] Center[facility] the event this information is protected by the Federal Confidentiality of Alcohol and Drug Abuse Patient Records regulations: The Federal rules restrict any use of the information to criminally investigate or prosecute any alcohol or drug abuse patient.[facility] Center[facility] the event this information is protected by the Federal Confidentiality of Alcohol and Drug Abuse Patient Records regulations: The Federal rules restrict any use of the information to criminally investigate or prosecute any alcohol or drug abuse patient.[facility]In the event this information is protected by the Federal Confidentiality of Alcohol and Drug Abuse Patient Records regulations: The Federal rules restrict any use of the information to criminally investigate or prosecute any alcohol or drug abuse patient.[facility] CenterIn the event this information is protected by the Federal Confidentiality of Alcohol and Drug Abuse Patient Records regulations: The Federal rules restrict any use of the information to criminally investigate or prosecute any alcohol or drug abuse patient.[facility] CenterIn the event this information is protected by the Federal Confidentiality of Alcohol and Drug Abuse Patient Records regulations: The Federal rules restrict any use of the information to criminally investigate or prosecute any alcohol or drug abuse patient.[facility] CenterIn the event this information is protected by the Federal Confidentiality of Alcohol and Drug Abuse Patient Records regulations: The Federal rules restrict any use of the information to criminally investigate or prosecute any alcohol or drug abuse patient.[facility] CenterIn the event this information is protected by the Federal Confidentiality of Alcohol and Drug Abuse Patient Records regulations: The Federal rules restrict any use of the information to criminally investigate or prosecute any alcohol or drug abuse patient.[facility] CenterIn the event this information is protected by the Federal Confidentiality of Alcohol and Drug Abuse Patient Records regulations: The Federal rules restrict any use of the information to criminally investigate or prosecute any alcohol or drug abuse patient.[facility]In the event this information is protected by the Federal Confidentiality of Alcohol and Drug Abuse Patient Records regulations: The Federal rules restrict any use of the information to criminally investigate or prosecute any alcohol or drug abuse patient.[facility]In the event this information is protected by the Federal Confidentiality of Alcohol and Drug Abuse Patient Records regulations: The Federal rules restrict any use of the information to criminally investigate or prosecute any alcohol or drug abuse patient.[facility]In the event this information is protected by the Federal Confidentiality of Alcohol and Drug Abuse Patient Records regulations: The Federal rules restrict any use of the information to criminally investigate or prosecute any alcohol or drug abuse patient.[facility]In the event this information is protected by the Federal Confidentiality of Alcohol and Drug Abuse Patient Records regulations: The Federal rules restrict any use of the information to criminally investigate or prosecute any alcohol or drug abuse patient.[facility]In the event this information is protected by the Federal Confidentiality of Alcohol and Drug Abuse Patient Records regulations: The Federal rules restrict any use of the information to criminally investigate or prosecute any alcohol or drug abuse patient.[facility]In the event this information is protected by the Federal Confidentiality of Alcohol and Drug Abuse Patient Records regulations: The Federal rules restrict any use of the information to criminally investigate or prosecute any alcohol or drug abuse patient.[facility]In the event this information is protected by the Federal Confidentiality of Alcohol and Drug Abuse Patient Records regulations: The Federal rules restrict any use of the information to criminally investigate or prosecute any alcohol or drug abuse patient.[facility]In the event this information is protected by the Federal Confidentiality of Alcohol and Drug Abuse Patient Records regulations: The Federal rules restrict any use of the information to criminally investigate or prosecute any alcohol or drug abuse patient.[facility]In the event this information is protected by the Federal Confidentiality of Alcohol and Drug Abuse Patient Records regulations: The Federal rules restrict any use of the information to criminally investigate or prosecute any alcohol or drug abuse patient.[facility]In the event this information is protected by the Federal Confidentiality of Alcohol and Drug Abuse Patient Records regulations: The Federal rules restrict any use of the information to criminally investigate or prosecute any alcohol or drug abuse patient.[facility]In the event this information is protected by the Federal Confidentiality of Alcohol and Drug Abuse Patient Records regulations: The Federal rules restrict any use of the information to criminally investigate or prosecute any alcohol or drug abuse patient.[facility]In the event this information is protected by the Federal Confidentiality of Alcohol and Drug Abuse Patient Records regulations: The Federal rules restrict any use of the information to criminally investigate or prosecute any alcohol or drug abuse patient.[facility]In the event this information is protected by the Federal Confidentiality of Alcohol and Drug Abuse Patient Records regulations: The Federal rules restrict any use of the information to criminally investigate or prosecute any alcohol or drug abuse patient.[facility]In the event this information is protected by the Federal Confidentiality of Alcohol and Drug Abuse Patient Records regulations: The Federal rules restrict any use of the information to criminally investigate or prosecute any alcohol or drug abuse patient.[facility]In the event this information is protected by the Federal Confidentiality of Alcohol and Drug Abuse Patient Records regulations: The Federal rules restrict any use of the information to criminally investigate or prosecute any alcohol or drug abuse patient.[facility]In the event this information is protected by the Federal Confidentiality of Alcohol and Drug Abuse Patient Records regulations: The Federal rules restrict any use of the information to criminally investigate or prosecute any alcohol or drug abuse patient.[facility]In the event this information is protected by the Federal Confidentiality of Alcohol and Drug Abuse Patient Records regulations: The Federal rules restrict any use of the information to criminally investigate or prosecute any alcohol or drug abuse patient.[facility]In the event this information is protected by the Federal Confidentiality of Alcohol and Drug Abuse Patient Records regulations: The Federal rules restrict any use of the information to criminally investigate or prosecute any alcohol or drug abuse patient.[facility]In the event this information is protected by the Federal Confidentiality of Alcohol and Drug Abuse Patient Records regulations: The Federal rules restrict any use of the information to criminally investigate or prosecute any alcohol or drug abuse patient.[facility]In the event this information is protected by the Federal Confidentiality of Alcohol and Drug Abuse Patient Records regulations: The Federal rules restrict any use of the information to criminally investigate or prosecute any alcohol or drug abuse patient.[facility]In the event this information is protected by the Federal Confidentiality of Alcohol and Drug Abuse Patient Records regulations: The Federal rules restrict any use of the information to criminally investigate or prosecute any alcohol or drug abuse patient.[facility]In the event this information is protected by the Federal Confidentiality of Alcohol and Drug Abuse Patient Records regulations: The Federal rules restrict any use of the information to criminally investigate or prosecute any alcohol or drug abuse patient.[facility]In the event this information is protected by the Federal Confidentiality of Alcohol and Drug Abuse Patient Records regulations: The Federal rules restrict any use of the information to criminally investigate or prosecute any alcohol or drug abuse patient.[facility]In the event this information is protected by the Federal Confidentiality of Alcohol and Drug Abuse Patient Records regulations: The Federal rules restrict any use of the information to criminally investigate or prosecute any alcohol or drug abuse patient.[facility]In the event this information is protected by the Federal Confidentiality of Alcohol and Drug Abuse Patient Records regulations: The Federal rules restrict any use of the information to criminally investigate or prosecute any alcohol or drug abuse patient.[facility]In the event this information is protected by the Federal Confidentiality of Alcohol and Drug Abuse Patient Records regulations: The Federal rules restrict any use of the information to criminally investigate or prosecute any alcohol or drug abuse patient.[facility]In the event this information is protected by the Federal Confidentiality of Alcohol and Drug Abuse Patient Records regulations: The Federal rules restrict any use of the information to criminally investigate or prosecute any alcohol or drug abuse patient.[facility]In the event this information is protected by the Federal Confidentiality of Alcohol and Drug Abuse Patient Records regulations: The Federal rules restrict any use of the information to criminally investigate or prosecute any alcohol or drug abuse patient.[facility]In the event this information is protected by the Federal Confidentiality of Alcohol and Drug Abuse Patient Records regulations: The Federal rules restrict any use of the information to criminally investigate or prosecute any alcohol or drug abuse patient.[facility]In the event this information is protected by the Federal Confidentiality of Alcohol and Drug Abuse Patient Records regulations: The Federal rules restrict any use of the information to criminally investigate or prosecute any alcohol or drug abuse patient.[facility]In the event this information is protected by the Federal Confidentiality of Alcohol and Drug Abuse Patient Records regulations: The Federal rules restrict any use of the information to criminally investigate or prosecute any alcohol or drug abuse patient.[facility]In the event this information is protected by the Federal Confidentiality of Alcohol and Drug Abuse Patient Records regulations: The Federal rules restrict any use of the information to criminally investigate or prosecute any alcohol or drug abuse patient.[facility]In the event this information is protected by the Federal Confidentiality of Alcohol and Drug Abuse Patient Records regulations: The Federal rules restrict any use of the information to criminally investigate or prosecute any alcohol or drug abuse patient.[facility]In the event this information is protected by the Federal Confidentiality of Alcohol and Drug Abuse Patient Records regulations: The Federal rules restrict any use of the information to criminally investigate or prosecute any alcohol or drug abuse patient.[facility]In the event this information is protected by the Federal Confidentiality of Alcohol and Drug Abuse Patient Records regulations: The Federal rules restrict any use of the information to criminally investigate or prosecute any alcohol or drug abuse patient.[facility]In the event this information is protected by the Federal Confidentiality of Alcohol and Drug Abuse Patient Records regulations: The Federal rules restrict any use of the information to criminally investigate or prosecute any alcohol or drug abuse patient.[facility]In the event this information is protected by the Federal Confidentiality of Alcohol and Drug Abuse Patient Records regulations: The Federal rules restrict any use of the information to criminally investigate or prosecute any alcohol or drug abuse patient.[facility]In the event this information is protected by the Federal Confidentiality of Alcohol and Drug Abuse Patient Records regulations: The Federal rules restrict any use of the information to criminally investigate or prosecute any alcohol or drug abuse patient.[facility]In the event this information is protected by the Federal Confidentiality of Alcohol and Drug Abuse Patient Records regulations: The Federal rules restrict any use of the information to criminally investigate or prosecute any alcohol or drug abuse patient.[facility]In the event this information is protected by the Federal Confidentiality of Alcohol and Drug Abuse Patient Records regulations: The Federal rules restrict any use of the information to criminally investigate or prosecute any alcohol or drug abuse patient.[facility]In the event this information is protected by the Federal Confidentiality of Alcohol and Drug Abuse Patient Records regulations: The Federal rules restrict any use of the information to criminally investigate or prosecute any alcohol or drug abuse patient.[facility]In the event this information is protected by the Federal Confidentiality of Alcohol and Drug Abuse Patient Records regulations: The Federal rules restrict any use of the information to criminally investigate or prosecute any alcohol or drug abuse patient.[facility]In the event this information is protected by the Federal Confidentiality of Alcohol and Drug Abuse Patient Records regulations: The Federal rules restrict any use of the information to criminally investigate or prosecute any alcohol or drug abuse patient.[facility]In the event this information is protected by the Federal Confidentiality of Alcohol and Drug Abuse Patient Records regulations: The Federal rules restrict any use of the information to criminally investigate or prosecute any alcohol or drug abuse patient.[facility]In the event this information is protected by the Federal Confidentiality of Alcohol and Drug Abuse Patient Records regulations: The Federal rules restrict any use of the information to criminally investigate or prosecute any alcohol or drug abuse patient.[facility]In the event this information is protected by the Federal Confidentiality of Alcohol and Drug Abuse Patient Records regulations: The Federal rules restrict any use of the information to criminally investigate or prosecute any alcohol or drug abuse patient.[facility]In the event this information is protected by the Federal Confidentiality of Alcohol and Drug Abuse Patient Records regulations: The Federal rules restrict any use of the information to criminally investigate or prosecute any alcohol or drug abuse patient.[facility]In the event this information is protected by the Federal Confidentiality of Alcohol and Drug Abuse Patient Records regulations: The Federal rules restrict any use of the information to criminally investigate or prosecute any alcohol or drug abuse patient.[facility]In the event this information is protected by the Federal Confidentiality of Alcohol and Drug Abuse Patient Records regulations: The Federal rules restrict any use of the information to criminally investigate or prosecute any alcohol or drug abuse patient.[facility]In the event this information is protected by the Federal Confidentiality of Alcohol and Drug Abuse Patient Records regulations: The Federal rules restrict any use of the information to criminally investigate or prosecute any alcohol or drug abuse patient.[facility]In the event this information is protected by the Federal Confidentiality of Alcohol and Drug Abuse Patient Records regulations: The Federal rules restrict any use of the information to criminally investigate or prosecute any alcohol or drug abuse patient.[facility]In the event this information is protected by the Federal Confidentiality of Alcohol and Drug Abuse Patient Records regulations: The Federal rules restrict any use of the information to criminally investigate or prosecute any alcohol or drug abuse patient.[facility]In the event this information is protected by the Federal Confidentiality of Alcohol and Drug Abuse Patient Records regulations: The Federal rules restrict any use of the information to criminally investigate or prosecute any alcohol or drug abuse patient.[facility]In the event this information is protected by the Federal Confidentiality of Alcohol and Drug Abuse Patient Records regulations: The Federal rules restrict any use of the information to criminally investigate or prosecute any alcohol or drug abuse patient.[facility]In the event this information is protected by the Federal Confidentiality of Alcohol and Drug Abuse Patient Records regulations: The Federal rules restrict any use of the information to criminally investigate or prosecute any alcohol or drug abuse patient.[facility]In the event this information is protected by the Federal Confidentiality of Alcohol and Drug Abuse Patient Records regulations: The Federal rules restrict any use of the information to criminally investigate or prosecute any alcohol or drug abuse patient.[facility]In the event this information is protected by the Federal Confidentiality of Alcohol and Drug Abuse Patient Records regulations: The Federal rules restrict any use of the information to criminally investigate or prosecute any alcohol or drug abuse patient.[facility]In the event this information is protected by the Federal Confidentiality of Alcohol and Drug Abuse Patient Records regulations: The Federal rules restrict any use of the information to criminally investigate or prosecute any alcohol or drug abuse patient.[facility]In the event this information is protected by the Federal Confidentiality of Alcohol and Drug Abuse Patient Records regulations: The Federal rules restrict any use of the information to criminally investigate or prosecute any alcohol or drug abuse patient.[facility]In the event this information is protected by the Federal Confidentiality of Alcohol and Drug Abuse Patient Records regulations: The Federal rules restrict any use of the information to criminally investigate or prosecute any alcohol or drug abuse patient.[facility]In the event this information is protected by the Federal Confidentiality of Alcohol and Drug Abuse Patient Records regulations: The Federal rules restrict any use of the information to criminally investigate or prosecute any alcohol or drug abuse patient.[facility]In the event this information is protected by the Federal Confidentiality of Alcohol and Drug Abuse Patient Records regulations: The Federal rules restrict any use of the information to criminally investigate or prosecute any alcohol or drug abuse patient.[facility]In the event this information is protected by the Federal Confidentiality of Alcohol and Drug Abuse Patient Records regulations: The Federal rules restrict any use of the information to criminally investigate or prosecute any alcohol or drug abuse patient.[facility]In the event this information is protected by the Federal Confidentiality of Alcohol and Drug Abuse Patient Records regulations: The Federal rules restrict any use of the information to criminally investigate or prosecute any alcohol or drug abuse patient.[facility]In the event this information is protected by the Federal Confidentiality of Alcohol and Drug Abuse Patient Records regulations: The Federal rules restrict any use of the information to criminally investigate or prosecute any alcohol or drug abuse patient.[facility]In the event this information is protected by the Federal Confidentiality of Alcohol and Drug Abuse Patient Records regulations: The Federal rules restrict any use of the information to criminally investigate or prosecute any alcohol or drug abuse patient.[facility]In the event this information is protected by the Federal Confidentiality of Alcohol and Drug Abuse Patient Records regulations: The Federal rules restrict any use of the information to criminally investigate or prosecute any alcohol or drug abuse patient.[facility]In the event this information is protected by the Federal Confidentiality of Alcohol and Drug Abuse Patient Records regulations: The Federal rules restrict any use of the information to criminally investigate or prosecute any alcohol or drug abuse patient.[facility]In the event this information is protected by the Federal Confidentiality of Alcohol and Drug Abuse Patient Records regulations: The Federal rules restrict any use of the information to criminally investigate or prosecute any alcohol or drug abuse patient.[facility]In the event this information is protected by the Federal Confidentiality of Alcohol and Drug Abuse Patient Records regulations: The Federal rules restrict any use of the information to criminally investigate or prosecute any alcohol or drug abuse patient.[facility]In the event this information is protected by the Federal Confidentiality of Alcohol and Drug Abuse Patient Records regulations: The Federal rules restrict any use of the information to criminally investigate or prosecute any alcohol or drug abuse patient.[facility]In the event this information is protected by the Federal Confidentiality of Alcohol and Drug Abuse Patient Records regulations: The Federal rules restrict any use of the information to criminally investigate or prosecute any alcohol or drug abuse patient.[facility]In the event this information is protected by the Federal Confidentiality of Alcohol and Drug Abuse Patient Records regulations: The Federal rules restrict any use of the information to criminally investigate or prosecute any alcohol or drug abuse patient.[facility]In the event this information is protected by the Federal Confidentiality of Alcohol and Drug Abuse Patient Records regulations: The Federal rules restrict any use of the information to criminally investigate or prosecute any alcohol or drug abuse patient.[facility]In the event this information is protected by the Federal Confidentiality of Alcohol and Drug Abuse Patient Records regulations: The Federal rules restrict any use of the information to criminally investigate or prosecute any alcohol or drug abuse patient.[facility]In the event this information is protected by the Federal Confidentiality of Alcohol and Drug Abuse Patient Records regulations: The Federal rules restrict any use of the information to criminally investigate or prosecute any alcohol or drug abuse patient.[facility]In the event this information is protected by the Federal Confidentiality of Alcohol and Drug Abuse Patient Records regulations: The Federal rules restrict any use of the information to criminally investigate or prosecute any alcohol or drug abuse patient.[facility]In the event this information is protected by the Federal Confidentiality of Alcohol and Drug Abuse Patient Records regulations: The Federal rules restrict any use of the information to criminally investigate or prosecute any alcohol or drug abuse patient.[facility]In the event this information is protected by the Federal Confidentiality of Alcohol and Drug Abuse Patient Records regulations: The Federal rules restrict any use of the information to criminally investigate or prosecute any alcohol or drug abuse patient.[facility]In the event this information is protected by the Federal Confidentiality of Alcohol and Drug Abuse Patient Records regulations: The Federal rules restrict any use of the information to criminally investigate or prosecute any alcohol or drug abuse patient.[facility]In the event this information is protected by the Federal Confidentiality of Alcohol and Drug Abuse Patient Records regulations: The Federal rules restrict any use of the information to criminally investigate or prosecute any alcohol or drug abuse patient.[facility]In the event this information is protected by the Federal Confidentiality of Alcohol and Drug Abuse Patient Records regulations: The Federal rules restrict any use of the information to criminally investigate or prosecute any alcohol or drug abuse patient.[facility] CenterIn the event this information is protected by the Federal Confidentiality of Alcohol and Drug Abuse Patient Records regulations: The Federal rules restrict any use of the information to criminally investigate or prosecute any alcohol or drug abuse patient.[facility] CenterIn the event this information is protected by the Federal Confidentiality of Alcohol and Drug Abuse Patient Records regulations: The Federal rules restrict any use of the information to criminally investigate or prosecute any alcohol or drug abuse patient.[facility] CenterIn the event this information is protected by the Federal Confidentiality of Alcohol and Drug Abuse Patient Records regulations: The Federal rules restrict any use of the information to criminally investigate or prosecute any alcohol or drug abuse patient.[facility] CenterIn the event this information is protected by the Federal Confidentiality of Alcohol and Drug Abuse Patient Records regulations: The Federal rules restrict any use of the information to criminally investigate or prosecute any alcohol or drug abuse patient.[facility] CenterIn the event this information is protected by the Federal Confidentiality of Alcohol and Drug Abuse Patient Records regulations: The Federal rules restrict any use of the information to criminally investigate or prosecute any alcohol or drug abuse patient.[facility] CenterIn the event this information is protected by the Federal Confidentiality of Alcohol and Drug Abuse Patient Records regulations: The Federal rules restrict any use of the information to criminally investigate or prosecute any alcohol or drug abuse patient.[facility] CenterIn the event this information is protected by the Federal Confidentiality of Alcohol and Drug Abuse Patient Records regulations: The Federal rules restrict any use of the information to criminally investigate or prosecute any alcohol or drug abuse patient.[facility] CenterIn the event this information is protected by the Federal Confidentiality of Alcohol and Drug Abuse Patient Records regulations: The Federal rules restrict any use of the information to criminally investigate or prosecute any alcohol or drug abuse patient.[facility] CenterIn the event this information is protected by the Federal Confidentiality of Alcohol and Drug Abuse Patient Records regulations: The Federal rules restrict any use of the information to criminally investigate or prosecute any alcohol or drug abuse patient.[facility] CenterIn the event this information is protected by the Federal Confidentiality of Alcohol and Drug Abuse Patient Records regulations: The Federal rules restrict any use of the information to criminally investigate or prosecute any alcohol or drug abuse patient.[facility] CenterIn the event this information is protected by the Federal Confidentiality of Alcohol and Drug Abuse Patient Records regulations: The Federal rules restrict any use of the information to criminally investigate or prosecute any alcohol or drug abuse patient.[facility] CenterIn the event this information is protected by the Federal Confidentiality of Alcohol and Drug Abuse Patient Records regulations: The Federal rules restrict any use of the information to criminally investigate or prosecute any alcohol or drug abuse patient.[facility] CenterIn the event this information is protected by the Federal Confidentiality of Alcohol and Drug Abuse Patient Records regulations: The Federal rules restrict any use of the information to criminally investigate or prosecute any alcohol or drug abuse patient.[facility] CenterIn the event this information is protected by the Federal Confidentiality of Alcohol and Drug Abuse Patient Records regulations: The Federal rules restrict any use of the information to criminally investigate or prosecute any alcohol or drug abuse patient.[facility] CenterIn the event this information is protected by the Federal Confidentiality of Alcohol and Drug Abuse Patient Records regulations: The Federal rules restrict any use of the information to criminally investigate or prosecute any alcohol or drug abuse patient.[facility] CenterIn the event this information is protected by the Federal Confidentiality of Alcohol and Drug Abuse Patient Records regulations: The Federal rules restrict any use of the information to criminally investigate or prosecute any alcohol or drug abuse patient.[facility] CenterIn the event this information is protected by the Federal Confidentiality of Alcohol and Drug Abuse Patient Records regulations: The Federal rules restrict any use of the information to criminally investigate or prosecute any alcohol or drug abuse patient.[facility] Reason for Visit (unrecogniz ed section and content) Reason Comments Renal Txp Follow Up Reason Comments Research IRB# [id number] Reason Comments Refill Request Reason Comments Refill [...] Date Comments Refill Request 07/19/2022 Reason Comments [facility] requesting lab results Reason Comments Release [...] NEW HIGH MDM 60-74 MINUTES Alana Kent APRN.TRIMMER OPERATOR THREE KNIFE [address] [place] [address] Referral ID Status Reason Start Date Expiration Date V isits Requested Visits Authorized [id number] Closed PCP Requested Referral 07/15/2023 07/14/2024 1 [...] NEW HIGH MDM 60 MINUTES Delia Kaufman APRN.TRIMMER OPERATOR THREE KNIFE [address] [place] [address] Referral ID Status Reason Start Date Expiration Date V isits Requested Visits Authorized [id number] Closed PCP Requested Referral 01/22/2024 01/21/2025 1 1 Reason Comments Medication Problem Reason Comments Patient Update Request for new Dexcom Reason Comments Recheck Reason Onset Date Comments Population Health Navigation Outreach 07/13/2024 [facility]SA Reason Onset Date Comments Refill Request 07/13/2024 Reason Onset Date Comments Refill Request 07/31/2024 Reason Onset Date Comments Population Health Navigation Outreach 09/08/2024 [facility] WORK[facility]EN[facility] PCSA Reason Comments Transition Of Care Reason Comments ER F/U [facility] 01/27/25-01/31/25 oliguric acute kidney injury and flank pain Reason Comments Missed Appointment Primary care resched ule Reason Comments IR Outpatient Tube Appointment Request Reason Comments 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 - Other Reason Comments New Patient Specialty Diagnoses / Procedures Referred By Contac t Referred To Contact Diagnoses Pyelonephritis Procedures N/A [facility] [address] [place] [address] Referral ID Status Reason Start Date Expiration Date Visits Re quested Visits Authorized [id number] 1 1 Care Teams (unrecognized sec tion and content) Plastics Fabricator Or Welder Relationship Specialty Start Date End Date Zaida Gaston MD [address] [facility] [place] [address] PCP - General Internal Medicine 04/26/16 Loida Montiel I, DO [address] [facility] [address] [place] [address] Specialty Hair Spring Winder Nephrology 06/11/18 Heena Adams [address] [facility] [address] [place] [address] Specialty Hair Spring Winder Endocrinology 06/11/18 Satish Phan MD [address] [place] [place] [address] Specialty Hair Spring Winder General Surgery 07/25/18 Plastics Fabricator Or Welder Relationship Specialty Start Date End Date Zaida Gaston MD [address] [place] [place] [address] PCP - General Internal Medicine 04/26/16 Loida Montiel I, DO [address] [facility] [address] [place] [address] Specialty Hair Spring Winder Nephrology 06/11/18 Heena Adams [address] [facility] [address] [place] [address] Specialty Hair Spring Winder Endocrinology 06/11/18 Satish Phan MD [address] [facility] [place] [address] Specialty Hair Spring Winder General Surgery 07/25/18 Plastics Fabricator Or Welder Relationship Specialty Start Date End Date Zaida Gaston MD [address] [facility] [place] [address] PCP - General Internal Medicine 04/26/16 Loida Montiel I, DO [address] [place] [address] [place] [address] Specialty Hair Spring Winder Nephrology 06/11/18 Heena Adams [address] [facility] [address] [place] [address] Specialty Hair Spring Winder Endocrinology 06/11/18 Satish Phan MD [address] [facility] [place] [address] Specialty Hair Spring Winder General Surgery 07/25/18 Plastics Fabricator Or Welder Relationship Specialty Start Date End Date Zaida Gaston MD [address] [place] [address] PCP - General Internal Medicine 04/26/16 Loida Montiel I, DO [address] [facility] [address] [place] [address] Specialty Hair Spring Winder Nephrology 06/11/18 Heena Adams [address] [facility] [address] [place] [address] Specialty Hair Spring Winder Endocrinology 06/11/18 Satish Phan MD [address] [facility] [place] [address] Specialty Hair Spring Winder General Surgery 07/25/18 Plastics Fabricator Or Welder Relationship Specialty Start Date End Date Zaida Gaston MD [address] [place] [address] PCP - General Internal Medicine 04/26/16 Loida Montiel I, DO [address] [place] [address] [place] [address] Specialty Hair Spring Winder Nephrology 06/11/18 Heena Adams [address] [facility] [address] [place] [address] Specialty Hair Spring Winder Endocrinology 06/11/18 Satish Phan MD [address] [place] [address] Specialty Hair Spring Winder General Surgery 07/25/18 Plastics Fabricator Or Welder Relationship Specialty Start Date End Date Zaida Gaston MD [address] [place] [address] PCP - General Internal Medicine 04/26/16 Loida Montiel I, DO [address] [facility] [address] [place] [address] Specialty Hair Spring Winder Nephrology 06/11/18 Heena Adams [address] [facility] [address] [place] [address] Specialty Hair Spring Winder Endocrinology 06/11/18 Satish Phan MD [address] [facility] [place] [address] Specialty Hair Spring Winder General Surgery 07/25/18 Plastics Fabricator Or Welder Relationship Specialty Start Date End Date Zaida Gaston MD [address] [place] [address] PCP - General Internal Medicine 04/26/16 Loida Montiel I, DO [address] [facility] [address] [place] [address] Specialty Hair Spring Winder Nephrology 06/11/18 Heena Aadms [address] [facility] [address] [place] [address] Specialty Hair Spring Winder Endocrinology 06/11/18 Satish Phan MD [address] [facility] [place] [address] Specialty Hair Spring Winder General Surgery 07/25/18 Plastics Fabricator Or Welder Relationship Specialty Start Date End Date Zaida Gaston MD [address] [place] [address] PCP - General Internal Medicine 04/26/16 oLida Montiel I, DO [address] [place] [address] [place] [address] Specialty Hair Spring Winder Nephrology 06/11/18 Heena Adams [address] [facility] [address] [place] [address] Specialty Hair Spring Winder Endocrinology 06/11/18 Satish Phan MD [address] [place] [address] Specialty Hair Spring Winder General Surgery 07/25/18 Plastics Fabricator Or Welder Relationship Specialty Start Date End Date Zaida Gaston MD [address] [place] [address] PCP - General Internal Medicine 04/26/16 Loida Montiel I, [address] [place] [address] [place] [address] Specialty Hair Spring Winder Nephrology 06/11/18 Heena Adams [address] [facility] [address] [place] [address] Specialty Hair Spring Winder Endocrinology 06/11/18 Satish Phan MD [address] [facility] [place] [address] Specialty Hair Spring Winder General Surgery 07/25/18 Plastics Fabricator Or Welder Relationship Specialty Start Date End Date Zaida Gaston MD [address] [place] [address] PCP - General Internal Medicine 04/26/16 Loida Montiel I, DO [address] [facility] [address] [place] [address] Specialty Hair Spring Winder Nephrology 06/11/18 Heena Adams [address] [facility] [address] [place] [address] Specialty Hair Spring Winder Endocrinology 06/11/18 Satish Phan MD [address] [facility] [place] [address] Specialty Hair Spring Winder General Surgery 07/25/18 Plastics Fabricator Or Welder Relationship Specialty Start Date End Date Zaida Gaston MD [address] [place] [address] PCP - General Internal Medicine 04/26/16 Loida Montiel I, DO [address] [facility] [address] [place] [address] Specialty Hair Spring Winder Nephrology 06/11/18 Heena Adams [address] [facility] [address] [place] [address] Specialty Hair Spring Winder Endocrinology 06/11/18 Satish Phan MD [address] [facility] [place] [address] Specialty Hair Spring Winder General Surgery 07/25/18 Glen JeanVerna, [facility] [address] [place] [address] Pharmacist Pharmacy 08/23/22 Plastics Fabricator Or Welder Relationship Specialty Start Date End Date Zaida Gaston MD [address] [place] [address] PCP - General Internal Medicine 04/26/16 Loida Montiel I, DO [address] [facility] [address] [place] [address] Specialty Hair Spring Winder Nephrology 06/11/18 Heena Adams [address] [facility] [address] [place] [address] Specialty Hair Spring Winder Endocrinology 06/11/18 Satish Phan MD [address] [place] [address] Specialty Hair Spring Winder General Surgery 07/25/18 [place] [address] [place] [address] Pharmacist Pharmacy 08/23/22 Plastics Fabricator Or Welder Relationship Specialty Start Date End Date Zaida Gaston MD [address] [facility] [place] [address] PCP - General Internal Medicine 04/26/16 Loida Montiel I, DO [address] [place] [address] Specialty Hair Spring Winder Nephrology 06/11/18 Heena Adams [address] [facility] [address] [place] [address] Specialty Hair Spring Winder Endocrinology 06/11/18 Satish Phan MD [address] [place] [address] Specialty Hair Spring Winder General Surgery 07/25/18 [place] [address] [place] [address] Pharmacist Pharmacy 08/23/22 Plastics Fabricator Or Welder Relationship Specialty Start Date End Date Zaida Gaston MD [address] [facility] [place] [address] PCP - General Internal Medicine 04/26/16 Loida Montiel I, DO [address] [place] [address] Specialty Hair Spring Winder Nephrology 06/11/18 Heena Adams [address] [facility] [address] [place] [address] Specialty Hair Spring Winder Endocrinology 06/11/18 Satish Phan MD [address] [place] [address] Specialty Hair Spring Winder General Surgery 07/25/18 [facility] [address] [place] [address] Pharmacist Pharmacy 08/23/22 Plastics Fabricator Or Welder Relationship Specialty Start Date End Date Zaida Gaston MD [address] [facility] [place] [address] PCP - General Internal Medicine 04/26/16 Loida Montiel I, DO [address] [place] [address] Specialty Hair Spring Winder Nephrology 06/11/18 Heena Adams [address] [facility] [address] [place] [address] Specialty Hair Spring Winder Endocrinology 06/11/18 Satish Phan MD [address] [place] [address] Specialty Hair Spring Winder General Surgery 07/25/18 Mey [facility] [address] [place] [address] Pharmacist Pharmacy 08/23/22 Plastics Fabricator Or Welder Relationship Specialty Start Date End Date Zaida Gaston MD [address] [facility] [place] [address] PCP - General Internal Medicine 04/26/16 Loida Montiel I, DO [address] [place] [address] [place] [address] Specialty Hair Spring Winder Nephrology 06/11/18 Heena Adams [address] [place] [address] [place] [address] Specialty Hair Spring Winder Endocrinology 06/11/18 Satish Phan MD [address] [place] [address] Specialty Hair Spring Winder General Surgery 07/25/18 [facility] [address] [place] [address] Pharmacist Pharmacy 08/23/22 Team Status: [...] Medina DPM Other Provider Active Suzanne Cornelius EXPEDITIONARY FORCE COMBAT SKILLS, EXPEDITIONARY FORCE COMBAT SKILLS-C Attending Provider, Referri ng Provider Active Team Status: Active Member Role Status Dates Dr. Zaida Gaston MD Primary Care Provider Active Dr. Dona Medina DPM Other Provider Active Jenna Bedoya EXPEDITIONARY [employer] COMB[employer] SKILLS, EXPEDITIONARY FORCE COMBAT SKILLS-C Attending Provider, Referrin g Provider Active Team [...] MD Attending Provider, Emergency Pr ovider Active Plastics Fabricator Or Welder Relationship Specialty Start Date End Date Zaida Gaston MD [address] [facility] [place] [address] PCP - General Internal Medicine 04/26/16 Loida Montiel I, DO [address] [place] [address] [place], [place] [address] Specialty Hair Spring Winder Nephrology 06/11/18 Heena Adams [address] [facility] [place] [address] [place] [address] Specialty Hair Spring Winder Endocrinology 06/11/18 Satish Phan MD [address] [place], [place] [address] Specialty Hair Spring Winder General Surgery 07/25/18 Verna Jensen, [facility] [address] [place] [address] Pharmacist Pharmacy 08/23/22 Team Status: Active Member [...] Martínez MD Other Provider Active Vivian Garrison EXPEDITIONARY FORCE COMB[employer] SKILLS, EXPEDITIONARY FORCE COMBAT SKILLS-C Other Provider Active John Funes EXPEDITIONARY [employer] COMB[employer] SKILLS, EXPEDITIONARY FORCE COMBAT SKILLS-C Other Provider Active Faviola Josue PA Other Provider Active Dr. Satish Nava MD Other Provider Active Dr. Iasmar Smith MD Active Dr. Shruti Jara MD [...] Martínez MD Other Provider Active Vivian Garrison EXPEDITIONARY [employer] COMBAT SKILLS, EXPEDITIONARY FORCE COMBAT SKILLS-C Other Provider Active John Funes EXPEDITIONARY [employer]CE COMBAT SKILLS, EXPEDITIONARY FORCE COMBAT SKILLS-C Other Provider Active Faviola Josue PA Other [...] Martínez MD Other Provider Active Vivian Garrison EXPEDITIONARY FORCE COMBAT SKILLS, EXPEDITIONARY FORCE COMBAT SKILLS-C Other Provider Active John Funes EXPEDITIONARY FORCE COMBAT SKILLS, EXPEDITIONARY FORCE COMBAT SKILLS-C Other Provider Active Faviola Josue PA Other [...] , DO Other Provider Active Dr. Kerrie Hnederson MD Other Provider Active Dr. Awa Martínez MD Other Provider Active Vivian Garrison EXPEDITIONARY [employer]CE COMBAT SKILLS, EXPEDITIONARY FORCE COMBAT SKILLS-C Other Provider Active John Funes EXPEDITIONARY FORCE COMBAT SKILLS, EXPEDITIONARY FORCE COMBAT SKILLS-C Other Provider Active AJ Julio Other Provider Active Dr. Satish Nava MD Other Provider Active Plastics Fabricator Or Welder Relationship Specialty Start Date End Date Zaida Gaston MD [address] [facility] [address] PCP - General Internal Medicine 04/26/16 Loida Montiel I, DO [address] [facility] [address] [place] [address] Specialty Hair Spring Winder Nephrology 06/11/18 Heena Adams [address] [facility] [address] [place] [address] Specialty Hair Spring Winder Endocrinology 06/11/18 Satish Phan MD [address] [place] [address] Specialty Hair Spring Winder General Surgery 07/25/18 Glen JeanVerna, [facility] [address] [place] [address] Pharmacist Pharmacy 08/23/22 Plastics Fabricator Or Welder Relationship Specialty Start Date End Date Zaida Gaston MD [address] [place] [place] [address] PCP - General Internal Medicine 04/26/16 Loida Montiel I, DO [address] [place] [address] Specialty Hair Spring Winder Nephrology 06/11/18 Heena Adams [address] [facility] [address] [place] [address] Specialty Hair Spring Winder Endocrinology 06/11/18 Satish Phan MD [address] [place] [address] Specialty Hair Spring Winder General Surgery 07/25/18 Plastics Fabricator Or Welder Relationship Specialty Start Date End Date Zaida Gaston MD [address] [place] [address] PCP - General Internal Medicine 04/26/16 Loida Montiel I, DO [address] [place] [address] Specialty Hair Spring Winder Nephrology 06/11/18 Heena Adams [address] [facility] [address] [place] [address] Specialty Hair Spring Winder Endocrinology 06/11/18 Satish Phan MD [address] [facility] [place] [address] Specialty Hair Spring Winder General Surgery 07/25/18 Plastics Fabricator Or Welder Relationship Specialty Start Date End Date Zaida Gaston MD [address] [place] [address] PCP - General Internal Medicine 04/26/16 Loida Montiel I, DO [address] [place] [address] Specialty Hair Spring Winder Nephrology 06/11/18 Heena Adams [address] [facility] [address] [place] [address] Specialty Hair Spring Winder Endocrinology 06/11/18 Satish Phan MD [address] [facility] [place] [address] Specialty Hair Spring Winder General Surgery 07/25/18 Plastics Fabricator Or Welder Relationship Specialty Start Date End Date Zaida Gaston MD [address] [place] [address] PCP - General Internal Medicine 04/26/16 Loida Montiel I, DO [address] [place] [address] [place] [address] Specialty Hair Spring Winder Nephrology 06/11/18 Heena Adams J [address] [facility] [address] [place] [address] Specialty Hair Spring Winder Endocrinology 06/11/18 Satish Phan MD [address] [facility] [place] [address] Specialty Hair Spring Winder General Surgery 07/25/18 Team Status: Active Member Role Status Dates Dr. Zaida Gaston MD Primary Care Provider Active Dr. Tylor Rudd MD Attending Provider Active Dr. Mayo Levy DPM Referring Provider Active Team Status: Inactive Member Role Status Dates Dr. Zaida Gaston MD Primary Care Provider Active Conchis Meza NP-C Attending Provider, Referring Pr ovider Active Plastics Fabricator Or Welder Relationship Specialty Start Date End Date Zaida Gaston MD [address] [place] [address] PCP - General Internal Medicine 04/26/16 Loida Montiel I, DO [address] [place] [address] Specialty Hair Spring Winder Nephrology 06/11/18 Heena Adams [address] [facility] [address] [place] [address] Specialty Hair Spring Winder Endocrinology 06/11/18 Satish Phan MD [address] [facility] [place] [address] Specialty Hair Spring Winder General Surgery 07/25/18 Plastics Fabricator Or Welder Relationship Specialty Start Date End Date Zaida Gaston MD [address] [place] [address] PCP - General Internal Medicine 04/26/16 Loida Montiel I, DO [address] [place] [address] [place] [address] Specialty Hair Spring Winder Nephrology 06/11/18 Heena Adams J [address] [facility] [address] [place] [address] Specialty Hair Spring Winder Endocrinology 06/11/18 Satish Phan MD [address] [place] [address] Specialty Hair Spring Winder General Surgery 07/25/18 Team Status: Inactive Member Role Status Dates Dr. Zaida Gaston MD Primary Care Provider, Referring Provider Active Yissel Willis NP, EXPEDITIONARY FORCE COMBAT SKILLS-C Attending Provider Active Team Status: Inactive Member Role Status Dates Dr. Zaida Gaston MD Primary Care Provider Active Dr. Loi Saldana DO Emergency Provider Active Plastics Fabricator Or Welder Relationship Specialty Start Date End Date Zaida Gaston MD [address] [place] [address] PCP - General Internal Medicine 04/26/16 Loida Montiel I, DO [address] [facility] [address] [place] [address] Specialty Hair Spring Winder Nephrology 06/11/18 Heena Adams [address] [facility] [address] [place] [address] Specialty Hair Spring Winder Endocrinology 06/11/18 Satish Phan MD [address] [place] [address] Specialty Hair Spring Winder General Surgery 07/25/18 Plastics Fabricator Or Welder Relationship Specialty Start Date End Date Zaida Gaston MD [address] [place] [address] PCP - General Internal Medicine 04/26/16 Loida Montiel I, DO [address] [facility] [address] [place] [address] Specialty Hair Spring Winder Nephrology 06/11/18 Heena Adams [address] [place] [address] Specialty Hair Spring Winder Endocrinology 06/11/18 Satish Phan MD [address] [place] [address] Specialty Hair Spring Winder General Surgery 07/25/18 Plastics Fabricator Or Welder Relationship Specialty Start Date End Date Zaida Gaston MD [address] [place] [address] PCP - General Internal Medicine 04/26/16 Loida Montiel I, DO [address] [place], [place] [address] Specialty Hair Spring Winder Nephrology 06/11/18 Heena Adams [address] [facility] [address] [place] [address] Specialty Hair Spring Winder Endocrinology 06/11/18 Satish Phan MD [address] [place] [address] Specialty Hair Spring Winder General Surgery 07/25/18 Plastics Fabricator Or Welder Relationship Specialty Start Date End Date Zaida Gaston MD [address] [place] [address] PCP - General Internal Medicine 04/26/16 Loida Montiel I, DO [address] [place] [address] Specialty Hair Spring Winder Nephrology 06/11/18 Heena Adams [address] [facility] [address] [place] [address] Specialty Hair Spring Winder Endocrinology 06/11/18 Satish Phan MD [address] [place] [address] Specialty Hair Spring Winder General Surgery 07/25/18 Plastics Fabricator Or Welder Relationship Specialty Start Date End Date Zaida Gaston MD [address] [facility] [address] PCP - General Internal Medicine 04/26/16 Loida Montiel I, DO [address] [place] [address] Specialty Hair Spring Winder Nephrology 06/11/18 Heena Adams [address] [facility] [address] [place] [address] [phone] Specialty Hair Spring Winder Endocrinology 06/11/18 Satish Phan MD [address] [place] [address] Specialty Hair Spring Winder General Surgery 07/25/18 Plastics Fabricator Or Welder Relationship Specialty Start Date End Date Zaida Gaston MD [address] [facility] [address] PCP - General Internal Medicine 04/26/16 Loida Montiel I, DO [address] [place] [address] Specialty Hair Spring Winder Nephrology 06/11/18 Heena Adams [address] [facility] [address] [place] [address] Specialty Hair Spring Winder Endocrinology 06/11/18 Satish Phan MD [address] [place] [address] Specialty Hair Spring Winder General Surgery 07/25/18 Plastics Fabricator Or Welder Relationship Specialty Start Date End Date Zaida Gaston MD [address] [facility] [address] PCP - General Internal Medicine 04/26/16 Loida Montiel I, [address] [place] [address] Specialty Hair Spring Winder Nephrology 06/11/18 Heena Adams [address] [facility] [address] [place] [address] Specialty Hair Spring Winder Endocrinology 06/11/18 Satish Phan MD [address] [place] [address] Specialty Hair Spring Winder General Surgery 07/25/18 Plastics Fabricator Or Welder Relationship Specialty Start Date End Date Zaida Gaston MD [address] [place] [address] PCP - General Internal Medicine 04/26/16 Loida Montiel I, DO [address] [place] [address] Specialty Hair Spring Winder Nephrology 06/11/18 Heena Adams [address] [facility] [address] [place] [phone] Specialty Hair Spring Winder Endocrinology 06/11/18 Satish Phan MD [address] [place] [address] Specialty Hair Spring Winder General Surgery 07/25/18 Plastics Fabricator Or Welder Relationship Specialty Start Date End Date Zaida Gaston MD [address] [place] [address] PCP - General Internal Medicine 04/26/16 Loida Montiel I, DO [address] [place] [address] Specialty Hair Spring Winder Nephrology 06/11/18 Heena Adams [address] [facility] [address] [place] [address] Specialty Hair Spring Winder Endocrinology 06/11/18 Satish Phan MD [address] [place] [address] Specialty Hair Spring Winder General Surgery 07/25/18 Plastics Fabricator Or Welder Relationship Specialty Start Date End Date Zaida Gaston MD [address] [place] [address] PCP - General Internal Medicine 04/26/16 Loida Montiel I, DO [address] [facility] [address] [place] [address] Specialty Hair Spring Winder Nephrology 06/11/18 Heena Adams [address] [facility] [address] [place] [address] Specialty Hair Spring Winder Endocrinology 06/11/18 Satish Phan MD [address] [place] [address] Specialty Hair Spring Winder General Surgery 07/25/18 Conchis Sheets, RN Registered Nurse Transplant Center 07/25/23 Plastics Fabricator Or Welder Relationship Specialty Start Date End Date Zaida Gaston MD [address] [facility] [address] PCP - General Internal Medicine 04/26/16 Loida Montiel I, DO [address] [facility] [address] [place] [address] Specialty Hair Spring Winder Nephrology 06/11/18 Heena Adams [address] [facility] [address] [place] [phone] Specialty Hair Spring Winder Endocrinology 06/11/18 Satish Phan MD [address] [facility] [place] [address] Specialty Hair Spring Winder General Surgery 07/25/18 Conchis Sheets RN Registered Nurse Transplant Center 07/25/23 Plastics Fabricator Or Welder Relationship Specialty Start Date End Date Zaida Gaston MD [address] [facility] [address] PCP - General Internal Medicine 04/26/16 Loida Montiel I, DO [address] [facility] [address] [place] [address] Specialty Hair Spring Winder Nephrology 06/11/18 Heena Adams [address] [facility] [address] [place] [phone] Specialty Hair Spring Winder Endocrinology 06/11/18 Satish Phan MD [address] [place] [address] Specialty Hair Spring Winder General Surgery 07/25/18 Conchis Sheets, RN Registered Nurse Transplant Center 07/25/23 Plastics Fabricator Or Welder Relationship Specialty Start Date End Date Zaida Gaston MD [address] [place] [address] PCP - General Internal Medicine 04/26/16 Loida Montiel I, DO [address] [facility] [address] [place] [address] Specialty Hair Spring Winder Nephrology 06/11/18 Heena Adams [address] [facility] [address] [place] [phone] Specialty Hair Spring Winder Endocrinology 06/11/18 Satish Phan MD [address] [facility] [address] Specialty Hair Spring Winder General Surgery 07/25/18 Conchis Sheets RN Registered Nurse Transplant Center 07/25/23 Plastics Fabricator Or Welder Relationship Specialty Start Date End Date Zaida Gaston MD [address] [facility] [address] PCP - General Internal Medicine 04/26/16 Loida Montiel I, DO [address] [facility] [address] [place], [place] [address] Specialty Hair Spring Winder Nephrology 06/11/18 Heena Adams [address] [facility] [address] [place] [address] Specialty Hair Spring Winder Endocrinology 06/11/18 Satish Phan MD [address] [place] [address] Specialty Hair Spring Winder General Surgery 07/25/18 Conchis Sheets, RN Registered Nurse Transplant Center 07/25/23 Plastics Fabricator Or Welder Relationship Specialty Start Date End Date Zaida Gaston MD [address] [place] [address] PCP - General Internal Medicine 04/26/16 Loida Montiel I, DO [address] [place] [address] [place] [address] Specialty Hair Spring Winder Nephrology 06/11/18 Heena Adams [address] [facility] [address] [place] [phone] Specialty Hair Spring Winder Endocrinology 06/11/18 Satish Phan MD [address] [facility] [address] Specialty Hair Spring Winder General Surgery 07/25/18 Conchis Sheets, RN Registered Nurse Transplant Center 07/25/23 Conchis Sheets, ANDER Registered Nurse Transplant Center 09/10/23 Plastics Fabricator Or Welder Relationship Specialty Start Date End Date Zaida Gaston MD [address] [facility] [address] PCP - General Internal Medicine 04/26/16 Loida Montiel I, DO [address] [place] [address] [place], [place] [address] Specialty Hair Spring Winder Nephrology 06/11/18 Heena Adams [address] [facility] [address] [place] [phone] Specialty Hair Spring Winder Endocrinology 06/11/18 Satish Phan MD [address] [place] [address] Specialty Hair Spring Winder General Surgery 07/25/18 Conchis Sheets, ANDER Registered Nurse Transplant Center 07/25/23 Conchis Sheets, ANDER Registered Nurse Transplant Center 09/10/23 Plastics Fabricator Or Welder Relationship Specialty Start Date End Date Zaida Gaston MD [address] [place] [address] PCP - General Internal Medicine 04/26/16 Loida Montiel I, DO [address] [facility] [address] [place] [address] Specialty Hair Spring Winder Nephrology 06/11/18 Heena Adams [address] [facility] [address] [place] [address] Specialty Hair Spring Winder Endocrinology 06/11/18 Satish Phan MD [address] [place] [address] Specialty Hair Spring Winder General Surgery 07/25/18 Conchis Sheets, ANDER Registered Nurse Transplant Center 07/25/23 Conchis Sheets RN Registered Nurse Transplant Center 09/10/23 Plastics Fabricator Or Welder Relationship Specialty Start Date End Date Zaida Gaston MD [address] [place] [address] PCP - General Internal Medicine 04/26/16 Loida Montiel I, DO [address] [facility] [address] [facility] [address] [place] [address] Specialty Hair Spring Winder Nephrology 06/11/18 Heena Adams [address] [facility] [address] [place] [address] Specialty Hair Spring Winder Endocrinology 06/11/18 Satish Phan MD [address] [facility] [place] [address] Specialty Hair Spring Winder General Surgery 07/25/18 Conchis Sheets, RN Registered Nurse Transplant Center 07/25/23 Conchis Sheets, RN Registered Nurse Transplant Center 09/10/23 Plastics Fabricator Or Welder Relationship Specialty Start Date End Date Zaida Gaston MD [address] [place] [address] PCP - General Internal Medicine 04/26/16 Loida Montiel I, DO [address] [facility] [address] [place] [address] Specialty Hair Spring Winder Nephrology 06/11/18 Heena Adams [address] [facility] [address] [place] [address] Specialty Hair Spring Winder Endocrinology 06/11/18 Satish Phan MD [address] [facility] [address] Specialty Hair Spring Winder General Surgery 07/25/18 Conchis Sheets, RN Registered Nurse Transplant Center 07/25/23 Conchis Sheets, RN Registered Nurse Transplant Center 09/10/23 Plastics Fabricator Or Welder Relationship Specialty Start Date End Date Zaida Gaston MD [address] [facility] [address] PCP - General Internal Medicine 04/26/16 Loida Montiel I, DO [address] [facility] [address] [place] [address] Specialty Hair Spring Winder Nephrology 06/11/18 Heena Adams [address] [facility] [address] [place] [address] Specialty Hair Spring Winder Endocrinology 06/11/18 Satish Phan MD [address] [facility] [place] [address] Specialty Hair Spring Winder General Surgery 07/25/18 Conchis Sheets, ANDER Registered Nurse Transplant Center 07/25/23 Conchis Sheets, ANDER Registered Nurse Transplant Center 09/10/23 Plastics Fabricator Or Welder Relationship Specialty Start Date End Date Zaida Gaston MD [address] [facility] [place] [address] PCP - General Internal Medicine 04/26/16 Loida Montiel I, DO [address] [place] [address] Specialty Hair Spring Winder Nephrology 06/11/18 Heena Adams [address] [facility] [address] [place] [address] Specialty Hair Spring Winder Endocrinology 06/11/18 Satish Phan MD [address] [facility] [address] Specialty Hair Spring Winder General Surgery 07/25/18 Conchis Sheets, RN Registered Nurse Transplant Center 07/25/23 Conchis Sheets RN Registered Nurse Transplant Center 09/10/23 Plastics Fabricator Or Welder Relationship Specialty Start Date End Date Zaida Gaston MD [address] [facility] [address] PCP - General Internal Medicine 04/26/16 Loida Montiel I, DO [address] [place] [address] Specialty Hair Spring Winder Nephrology 06/11/18 Heena Adams [address] [facility] [address] [place] [address] Specialty Hair Spring Winder Endocrinology 06/11/18 Satish Phan MD [address] [facility] [address] Specialty Hair Spring Winder General Surgery 07/25/18 Conchis Sheets RN Registered Nurse Transplant Center 07/25/23 Conchis Sheets RN Registered Nurse Transplant Center 09/10/23 Plastics Fabricator Or Welder Relationship Specialty Start Date End Date Zaida Gaston MD [address] [place] [address] PCP - General Internal Medicine 04/26/16 Loida Montiel I, DO [address] [facility] [address] [place] [address] Specialty Hair Spring Winder Nephrology 06/11/18 Heena Adams [address] [facility] [address] [place] [address] Specialty Hair Spring Winder Endocrinology 06/11/18 Satish Phan MD [address] [facility] [place] [address] Specialty Hair Spring Winder General Surgery 07/25/18 Conchis Sheets RN Registered Nurse Transplant Center 07/25/23 Begala, Conchis, RN Registered Nurse Transplant Center 09/10/23 Plastics Fabricator Or Welder Relationship Specialty Start Date End Date Zaida Gaston MD [address] [facility] [address] PCP - General Internal Medicine 04/26/16 Loida Montiel I, DO [address] [facility] [address] [place] [address] Specialty Hair Spring Winder Nephrology 06/11/18 Heena Adams [address] [facility] [address] [place] [address] Specialty Hair Spring Winder Endocrinology 06/11/18 Satish Phan MD [address] [facility] [address] Specialty Hair Spring Winder General Surgery 07/25/18 Conchis Sheets, ANDER Registered Nurse Transplant Center 07/25/23 Conchis Sheets, ANDER Registered Nurse Transplant Center 09/10/23 Plastics Fabricator Or Welder Relationship Specialty Start Date End Date Zaida Gaston MD [address] [place] [address] PCP - General Internal Medicine 04/26/16 Loida Montiel I, DO [address] [place] [address] Specialty Hair Spring Winder Nephrology 06/11/18 Heena Adams [address] [facility] [address] [place] [address] Specialty Hair Spring Winder Endocrinology 06/11/18 Satish Phan MD [address] [facility] [address] Specialty Hair Spring Winder General Surgery 07/25/18 Conchis Sheets, ANDER Registered Nurse Transplant Center 07/25/23 Conchis Sheets RN Registered Nurse Transplant Center 09/10/23 Plastics Fabricator Or Welder Relationship Specialty Start Date End Date Zaida Gaston MD [address] [facility] [address] PCP - General Internal Medicine 04/26/16 Loida Montiel I, DO [address] [place] [address] [place] [address] Specialty Hair Spring Winder Nephrology 06/11/18 Heena Adams [address] [facility] [address] [place] [address] Specialty Hair Spring Winder Endocrinology 06/11/18 Satish Phan MD [address] [facility] [address] Specialty Hair Spring Winder General Surgery 07/25/18 Conchis Sheets, ANDER Registered Nurse Transplant Center 07/25/23 Conchis Sheets RN Registered Nurse Transplant Center 09/10/23 Plastics Fabricator Or Welder Relationship Specialty Start Date End Date Zaida Gaston MD [address] [place] [address] PCP - General Internal Medicine 04/26/16 Loida Montiel I, DO [address] [place] [address] [place] [address] Specialty Hair Spring Winder Nephrology 06/11/18 Heena Adams [address] [place] [address] Specialty Hair Spring Winder Endocrinology 06/11/18 Satish Phan MD [address] [place] [address] Specialty Hair Spring Winder General Surgery 07/25/18 Alana Kent APRN.TRIMMER OPERATOR THREE KNIFE [address] [place] [address] Transplant Center 03/20/24 Plastics Fabricator Or Welder Relationship Specialty Start Date End Date Zaida Gaston MD [address] [facility] [place] [address] PCP - General Internal Medicine 04/26/16 Loida Montiel I, DO [address] [place] [address] Specialty Hair Spring Winder Nephrology 06/11/18 Heena Adams [address] [facility] [address] [place] [address] Specialty Hair Spring Winder Endocrinology 06/11/18 Satish Phan MD [address] [place] [address] Specialty Hair Spring Winder General Surgery 07/25/18 Alana Kent APRN.TRIMMER OPERATOR THREE KNIFE [address] [place] [address] Transplant Center 03/20/24 Plastics Fabricator Or Welder Relationship Specialty Start Date End Date Zaida Gaston MD [address] [facility] [address] PCP - General Internal Medicine 04/26/16 Loida Montiel I, DO [address] [address] Specialty Hair Spring Winder Nephrology 06/11/18 Heena Adams [address] [address] Specialty Hair Spring Winder Endocrinology 06/11/18 Satish Phan MD [address] [place] [address] Specialty Hair Spring Winder General Surgery 07/25/18 Alana Kent APRN.TRIMMER OPERATOR THREE KNIFE [address] [place], [place] [address] Transplant Center 03/20/24 Plastics Fabricator Or Welder Relationship Specialty Start Date End Date Zaida Gaston MD [address] [place] [address] PCP - General Internal Medicine 04/26/16 Loida Montiel I, DO [address] [address] Specialty Hair Spring Winder Nephrology 06/11/18 Heena Adams [address] [address] Specialty Hair Spring Winder Endocrinology 06/11/18 Satish Phan MD [address] [place], [place] [address] Specialty Hair Spring Winder General Surgery 07/25/18 Alana Kent APRN.TRIMMER OPERATOR THREE KNIFE [address] [facility] [place], [place] [id number] Transplant Center 03/20/24 Plastics Fabricator Or Welder Relationship Specialty Start Date End Date Zaida Gaston MD [address] [place], [place] [address] PCP - General Internal Medicine 04/26/16 Loida Montiel I, DO [address] [address] Specialty Hair Spring Winder Nephrology 06/11/18 Heena Adams [address] [facility] [address] [place] [phone] Specialty Hair Spring Winder Endocrinology 06/11/18 Satish Phan MD [address] [place], [place] 43[address] Specialty Hair Spring Winder General Surgery 07/25/18 Alana Kent APRN.TRIMMER OPERATOR THREE KNIFE [address] [place] [address] Transplant Center 03/20/24 Plastics Fabricator Or Welder Relationship Specialty Start Date End Date Zaida Gaston MD [address] [place], [place] [address]88[address] PCP - General Internal Medicine 04/26/16 Loida Montiel I, DO [address] [id number] Specialty Hair Spring Winder Nephrology 06/11/18 Heena Adams [address] [facility] [address] [place] [phone] Specialty Hair Spring Winder Endocrinology 06/11/18 Satish Phan MD [address] [place] [address] Specialty Hair Spring Winder General Surgery 07/25/18 Alana Kent APRN.TRIMMER OPERATOR THREE KNIFE [address] [place] [address] Transplant Center 03/20/24 Plastics Fabricator Or Welder Relationship Specialty Start Date End Date Zaida Gaston MD [address] [facility] [address] PCP - General Internal Medicine 04/26/16 Loida Montiel I, DO [address] [facility] [address] [place] [address] Specialty Hair Spring Winder Nephrology 06/11/18 Heena Adams [address] [facility] [address] [place] [address] Specialty Hair Spring Winder Endocrinology 06/11/18 Satish Phan MD [address] [place] [address] Specialty Hair Spring Winder General Surgery 07/25/18 Alana Kent APRN.TRIMMER OPERATOR THREE KNIFE [address] [place] [address] Transplant Center 03/20/24 Plastics Fabricator Or Welder Relationship Specialty Start Date End Date Zaida Gaston MD [address] [facility] [place] [address] PCP - General Internal Medicine 04/26/16 Loida Montiel I, DO [address] [facility] [address] [place] [address] Specialty Hair Spring Winder Nephrology 06/11/18 Heena Adams [address] [facility] [address] [place] [address] Specialty Hair Spring Winder Endocrinology 06/11/18 Satish Phan MD [address] [place] [address] Specialty Hair Spring Winder General Surgery 07/25/18 Alana Kent APRN.TRIMMER OPERATOR THREE KNIFE [address] [place] [address] Transplant Center 03/20/24 Plastics Fabricator Or Welder Relationship Specialty Start Date End Date Zaida Gaston MD [address] [place] [address] PCP - General Internal Medicine 04/26/16 Loida Montiel I, DO [address] [id number] Specialty Hair Spring Winder Nephrology 06/11/18 Heena Adams [address] [facility] [address] [place] [phone] Specialty Hair Spring Winder Endocrinology 06/11/18 Satish Phan MD [address] [place] [address] Specialty Hair Spring Winder General Surgery 07/25/18 Alana Kent APRN.TRIMMER OPERATOR THREE KNIFE [address] [place] [address] Transplant Center 03/20/24 Plastics Fabricator Or Welder Relationship Specialty Start Date End Date Zaida Gaston MD [address] [place], [place] 8[address] PCP - General Internal Medicine 04/26/16 Loida Montiel I, DO [address], [place] [address] Specialty Hair Spring Winder Nephrology 06/11/18 Heena Adams [address] [facility] [address] [place] [phone] Specialty Hair Spring Winder Endocrinology 06/11/18 Satish Phan MD [address] [place], [place] 176[address] Specialty Hair Spring Winder General Surgery 07/25/18 Alana Kent APRN.TRIMMER OPERATOR THREE KNIFE [address] [place] [place], [place] [id number] Transplant Center 03/20/24 Plastics Fabricator Or Welder Relationship Specialty Start Date End Date Zaida Gaston MD [address] [place] [address] PCP - General Internal Medicine 04/26/16 Loida Montiel I, DO [address], [place] [address] Specialty Hair Spring Winder Nephrology 06/11/18 Heena Adams [address] [facility] [address] [place] [phone] Specialty Hair Spring Winder Endocrinology 06/11/18 Satish Phan MD [address] [place] [address] Specialty Hair Spring Winder General Surgery 07/25/18 Alana Kent APRN.TRIMMER OPERATOR THREE KNIFE [address] [place] [address] Transplant Center 03/20/24 Plastics Fabricator Or Welder Relationship Specialty Start Date End Date Zaida Gaston MD [address] [place] [address] PCP - General Internal Medicine 04/26/16 Loida Montiel I, DO [address] [address] Specialty Hair Spring Winder Nephrology 06/11/18 Heena Adams [address] [address] Specialty Hair Spring Winder Endocrinology 06/11/18 Satish Phan MD [address] [place] [address] Specialty Hair Spring Winder General Surgery 07/25/18 Alana Kent APRN.TRIMMER OPERATOR THREE KNIFE [address] [facility] [address] Transplant Center 03/20/24 Plastics Fabricator Or Welder Relationship Specialty Start Date End Date Zaida Gaston MD [address] [place] [address] PCP - General Internal Medicine 04/26/16 Loida Montiel I, DO [address] [facility] [address] [address] Specialty Hair Spring Winder Nephrology 06/11/18 Heena Adams [address] [phone] Specialty Hair Spring Winder Endocrinology 06/11/18 Satish Phan MD [address] [place], [place] [address] Specialty Hair Spring Winder General Surgery 07/25/18 Alana Kent APRN.TRIMMER OPERATOR THREE KNIFE [address] [place], [place] [id number] Transplant Center 03/20/24 Xiang Perez PA-C [address] [place] [address] Molded Goods Controls Operator Family Medicine 08/16/24 Delia Kaufman APRN.TRIMMER OPERATOR THREE KNIFE [address] [place] [address] Molded Goods Controls Operator Internal Medicine 08/16/24 Amber Gray PA-C [address] [place] [address] Molded Goods Controls Operator Family [facility] 08/16/24 Plastics Fabricator Or Welder Relationship Specialty Start Date End Date Zaida Gaston MD [address] [place] [address] PCP - General Internal Medicine 04/26/16 Loida Montiel I, DO [address] [address] Specialty Hair Spring Winder Nephrology 06/11/18 Heena Adams [address] [facility] [address] [place] [phone] Specialty Hair Spring Winder Endocrinology 06/11/18 Satish Phan MD [address] [place] [address] Specialty Hair Spring Winder General Surgery 07/25/18 Alana Kent APRN.TRIMMER OPERATOR THREE KNIFE [address] [place] [address] Transplant Center 03/20/24 Xiang Perez PA-C [address] [place] [address] Molded Goods Controls Operator Family Medicine 08/16/24 Delia Kaufman APRN.TRIMMER OPERATOR THREE KNIFE [address] [place] [address] Molded Goods Controls Operator Internal Medicine 08/16/24 Amber Gray PA-C [address] [place] [address] Molded Goods Controls Operator Family Medicine 08/16/24 Plastics Fabricator Or Welder Relationship Specialty Start Date End Date Zaida Gaston MD [address] [place] [address] PCP - General Internal Medicine 04/26/16 Loida Montiel I, DO [address] [facility] [address] [place], [place] [address] Specialty Hair Spring Winder Nephrology 06/11/18 Heena Adams [address] [facility] [address] [place] [phone] Specialty Hair Spring Winder Endocrinology 06/11/18 Satish Phan MD [address] [place], [place] [phone] Specialty Hair Spring Winder General Surgery 07/25/18 Alana Kent APRN.TRIMMER OPERATOR THREE KNIFE [address] [place] [address] Transplant Center 03/20/24 Xiang Perez PA-C [address] [place] [address] Molded Goods Controls Operator Family Medicine 08/16/24 Delia Kaufman APRN.TRIMMER OPERATOR THREE KNIFE [address] [place], [place] [id number] Molded Goods Controls Operator Internal Medicine 08/16/24 Amber Gray PA-C [address] [place], [place] [id number] Molded Goods [facility]/24 Team Status: Active Member Role Status [...] January 26, 2025 End: January 27, 2025 Plastics Fabricator Or Welder Relationship Specialty Start Date End Date Zaida Gaston MD [address] [facility] [place], [place] [address] PCP - General Internal Medicine 04/26/16 Loida Montiel I, DO [address] [address]023[address] Specialty Hair Spring Winder Nephrology 06/11/18 Heena Adams [address] [facility] [address] [place] [address] Specialty Hair Spring Winder Endocrinology 06/11/18 Satish Phan MD [address] [place] [address] Specialty Hair Spring Winder General Surgery 07/25/18 Alana Kent APRN.TRIMMER OPERATOR THREE KNIFE [address] [place] [address] Transplant Center 03/20/24 Delia Kaufman APRN.TRIMMER OPERATOR THREE KNIFE [address] [place] [address] Molded Goods Controls Operator Internal Medicine 08/16/24 Leona Esteves MD Molded Goods Controls Operator 01/29/25 02/11/25 Plastics Fabricator Or Welder Relationship Specialty Start Date End Date Zaida Gaston MD [address] [place] [address] PCP - General Internal Medicine 04/26/16 Loida Montiel I, DO [address] [facility] [address] [place] [address] Specialty Hair Spring Winder Nephrology 06/11/18 Heena Adams [address] [facility] [address] [place] [address] Specialty Hair Spring Winder Endocrinology 06/11/18 Satish Phan MD [address] [place] [address] Specialty Hair Spring Winder General Surgery 07/25/18 Alana Kent APRN.TRIMMER OPERATOR THREE KNIFE [address] [place] [address] Transplant Center 03/20/24 Delia Kaufman APRN.TRIMMER OPERATOR THREE KNIFE [address] [place] [address] Molded Goods Controls Operator Internal Medicine 08/16/24 Leona Esteves MD Molded Goods Controls Operator 01/29/25 02/11/25 Plastics Fabricator Or Welder Relationship Specialty Start Date End Date Zaida Gaston MD [address] [place] [address] PCP - General Internal Medicine 04/26/16 Loida Montiel I, DO [address] [facility] [address] [place] [address] Specialty Hair Spring Winder Nephrology 06/11/18 Heena Adams [address] [facility] [address] [place] [phone] Specialty Hair Spring Winder Endocrinology 06/11/18 Satish Phan MD [address] [place] [address] Specialty Hair Spring Winder General Surgery 07/25/18 Alana Kent APRN.TRIMMER OPERATOR THREE KNIFE [address] [place] [address] Transplant Center 03/20/24 Delia Kaufman APRN.TRIMMER OPERATOR THREE KNIFE [address] [place] [address] Molded Goods Controls Operator Internal Medicine 08/16/24 ProviderLeona MD Molded Goods Controls Operator 01/29/25 02/11/25 Plastics Fabricator Or Welder Relationship Specialty Start Date End Date Zaida Gaston MD [address] [place] [address] PCP - General Internal Medicine 04/26/16 Loida Montiel I, DO [address] [facility] [address] [place] [address] Specialty Hair Spring Winder Nephrology 06/11/18 Heena Adams [address] [facility] [address] [place] [phone] Specialty Hair Spring Winder Endocrinology 06/11/18 Satish Phan MD [address] [place] [place], [place] 3[address] Specialty Hair Spring Winder General Surgery 07/25/18 Alana Kent APRN.TRIMMER OPERATOR THREE KNIFE [address] [place] [address] Transplant Center 03/20/24 Delia Kaufman APRN.TRIMMER OPERATOR THREE KNIFE [address] [place], [place] [address] Molded Goods Controls Operator Internal Medicine 08/16/24 ProviderLeona MD Molded Goods Controls Operator 01/29/25 02/11/25 Team Status: Inactive Member Role [...] 07, 2025 End: February 07, 2025 Dr. Tnoi Nelson DO Emergency Provider Active S tart: February 07, 2025 End: February 07, 2025 Plastics Fabricator Or Welder Relationship Specialty Start Date End Date Zaida Gaston MD [address] [place], [place] [address] PCP - General Internal Medicine 04/26/16 Loida Montiel I, DO [address] [facility] [address] [place], [place] [address] Specialty Hair Spring Winder Nephrology 06/11/18 Heena Adams [address] [facility] [address] [place] [address] Specialty Hair Spring Winder Endocrinology 06/11/18 Satish Phan MD [address] [place], [place] [address] Specialty Hair Spring Winder General Surgery 07/25/18 Alana Kent APRN.TRIMMER OPERATOR THREE KNIFE [address] [place], [place] [address] Transplant Center 03/20/24 Delia Kaufman APRN.TRIMMER OPERATOR THREE KNIFE [address] [place] [address] Molded Goods Controls Operator Internal Medicine 08/16/24 Leona Esteves MD Molded Goods Controls Operator 01/29/25 02/11/25 Plastics Fabricator Or Welder Relationship Specialty Start Date End Date Zaida Gaston MD [address] [place] [address] PCP - General Internal Medicine 04/26/16 Loida Montiel I, DO [address] [address] Specialty Hair Spring Winder Nephrology 06/11/18 Heena Adams [address] [address] Specialty Hair Spring Winder Endocrinology 06/11/18 Satish Phan MD [address] [place] [address] Specialty Hair Spring Winder General Surgery 07/25/18 Alana Kent APRN.TRIMMER OPERATOR THREE KNIFE [address] [place] [address] Transplant Center 03/20/24 Delia Kaufman APRN.TRIMMER OPERATOR THREE KNIFE [address] [place] [address] Molded Goods Controls Operator Internal Medicine 08/16/24 Leona Esteves MD Molded Goods Controls Operator 01/29/25 02/11/25 Plastics Fabricator Or Welder Relationship Specialty Start Date End Date Zaida Gaston MD [address] [facility] [address] PCP - General Internal Medicine 04/26/16 Loida Montiel I, [address] [address] Specialty Hair Spring Winder Nephrology 06/11/18 Heena Adams [address] [facility] [address] [place] [address] Specialty Hair Spring Winder Endocrinology 06/11/18 Satish Phan MD [address] [facility] [place] [address] Specialty Hair Spring Winder General Surgery 07/25/18 Alana Kent APRN.TRIMMER OPERATOR THREE KNIFE [address] [place] [address] Transplant Center 03/20/24 Delia Kaufman APRN.TRIMMER OPERATOR THREE KNIFE [address] [place] [address] Molded Goods Controls Operator Internal Medicine 08/16/24 Plastics Fabricator Or Welder Relationship Specialty Start Date End Date Zaida Gaston MD [address] [facility] [address] PCP - General Internal Medicine 04/26/16 Loida Montiel I, DO [address] 5069[address] Specialty Hair Spring Winder Nephrology 06/11/18 Heena Adams [address] [phone] Specialty Hair Spring Winder Endocrinology 06/11/18 Satish Phan MD [address] [place], [place] [address] Specialty Hair Spring Winder General Surgery 07/25/18 Alana Kent APRN.TRIMMER OPERATOR THREE KNIFE [address] [place] [address] Transplant Center 03/20/24 Delia Kaufman APRN.TRIMMER OPERATOR THREE KNIFE [address] [place] [address] Molded Goods Controls Operator Internal Medicine 08/16/24 ProviderLeona MD Molded Goods Controls Operator 01/29/25 02/11/25 Plastics Fabricator Or Welder Relationship Specialty Start Date End Date Zaiad Gaston MD [address] [place], [place] [id number] PCP - General Internal Medicine 04/26/16 Loida Montiel I, DO [address] [address] Specialty Hair Spring Winder Nephrology 06/11/18 Heena Adams [address] [phone] Specialty Hair Spring Winder Endocrinology 06/11/18 Satish Phan MD [address] [place], [place] [phone] Specialty Hair Spring Winder General Surgery 07/25/18 Alana Kent APRN.TRIMMER OPERATOR THREE KNIFE [address] [place], [place] [address] Transplant Center 03/20/24 Delia Kaufman APRN.TRIMMER OPERATOR THREE KNIFE [address] [place], [place] 125[address] Molded Goods Controls Operator Internal Medicine 08/16/24 MeyVerna, [facility] [address] [place] [address] Pharmacist Pharmacy 03/08/25 Plastics Fabricator Or Welder Relationship Specialty Start Date End Date Zaida Gaston MD [address] [place], [place] 63268[address] PCP - General Internal Medicine 04/26/16 Loida Montiel I, DO [address] [phone] Specialty Hair Spring Winder Nephrology 06/11/18 Heena Adams [address] [address] Specialty Hair Spring Winder Endocrinology 06/11/18 Satish Phan MD [address] [place], [place] 164[address] Specialty Hair Spring Winder General Surgery 07/25/18 Alana Kent APRN.TRIMMER OPERATOR THREE KNIFE [address] [place] [address] Transplant Center 03/20/24 Delia Kaufman APRN.TRIMMER OPERATOR THREE KNIFE 1740 [place] [address] Molded Goods Controls Operator Internal Medicine 08/16/24 Verna Jensen, [facility] [address] [place] [address] Pharmacist Pharmacy 03/08/25 Team Status: Active Member [...] March 10, 2025 End: March 10, 2025 Plastics Fabricator Or Welder Relationship Specialty Start Date End Date Zaida Gaston MD [address] [place] [address] PCP - General Internal Medicine 04/26/16 Loida Montiel I, DO [address] [facility] [address] [place] [address] Specialty Hair Spring Winder Nephrology 06/11/18 Heena Adams [address] [facility] [address] [place] [phone] Specialty Hair Spring Winder Endocrinology 06/11/18 Satish Phan MD [address] [place], [place] [address]64[address] Specialty Hair Spring Winder General Surgery 07/25/18 Alana Kent APRN.TRIMMER OPERATOR THREE KNIFE [address] [place] [address] Transplant Center 03/20/24 Delia Kaufman APRN.TRIMMER OPERATOR THREE KNIFE [address] [place], [place] [address] Molded Goods Controls Operator Internal Medicine 08/16/24 Glen JeanVerna, [facility] [address] [place] [phone] Pharmacist Pharmacy 03/08/25 Team Status: Inactive Member [...] April 04, 2025 End: April 04, 2025 Plastics Fabricator Or Welder Relationship Specialty Start Date End Date Zaida Gaston MD [address] [place], [place] 289291 PCP - General Internal Medicine 04/26/16 Lodia Montiel I, DO [address] [phone] Specialty Hair Spring Winder Nephrology 06/11/18 Heena Adams [address] [facility] [address] [place] [address] Specialty Hair Spring Winder Endocrinology 06/11/18 Satish Phan MD [address] [place], [place] [address] Specialty Hair Spring Winder General Surgery 07/25/18 Alana Kent APRN.TRIMMER OPERATOR THREE KNIFE [address] [place] [address] Transplant Center 03/20/24 Delia Kaufman APRN.TRIMMER OPERATOR THREE KNIFE [address] [place], [place] [address]25[address] Molded Goods Controls Operator Internal Medicine 08/16/24 [place] [address] [place] [phone] Pharmacist Pharmacy 03/08/25 Plastics Fabricator Or Welder Relationship Specialty Start Date End Date Zaida Gaston MD [address] [place], [place] 149941 PCP - General Internal Medicine 04/26/16 Loida Montiel I, DO [address] [address] Specialty Hair Spring Winder Nephrology 06/11/18 Heena Adams [address] [address] Specialty Hair Spring Winder Endocrinology 06/11/18 Satish Phan MD [address] [facility] [place] [place] [address] Specialty Hair Spring Winder General Surgery 07/25/18 Alana Kent APRN.TRIMMER OPERATOR THREE KNIFE [address] [place] [address] Transplant Center 03/20/24 Delia Kaufman APRN.TRIMMER OPERATOR THREE KNIFE [address] [place], [place] [address] Molded Goods Controls Operator Internal Medicine 08/16/24 Verna Jensen[place] [address] [place] [address] Pharmacist Pharmacy 03/08/25 Team Status: Inactive Member [...] Other Provider Active Start: April 17, 2025 Plastics Fabricator Or Welder Relationship Specialty Start Date End Date Zaida Gaston MD [address] [place], [place] [address]46881 PCP - General Internal Medicine 04/26/16 Loida Montiel I, DO [address] 1622[address] Specialty Hair Spring Winder Nephrology 06/11/18 Heena Adams [address] [address] Specialty Hair Spring Winder Endocrinology 06/11/18 Satish Phan MD [address] [place] [address] Specialty Hair Spring Winder General Surgery 07/25/18 Alana Kent APRN.TRIMMER OPERATOR THREE KNIFE [address] [place] [address] Transplant Center 03/20/24 Delia Kaufman APRN.TRIMMER OPERATOR THREE KNIFE [address] [place] [address] Molded Goods Controls Operator Internal Medicine 08/16/24 Mey, [facility] [address] [place] [address] Pharmacist Pharmacy 03/08/25 Plastics Fabricator Or Welder Relationship Specialty Start Date End Date Zaida Gaston MD [address] [place], [place] [address] PCP - General Internal Medicine 04/26/16 Loida Montiel I, DO [address] [phone] Specialty Hair Spring Winder Nephrology 06/11/18 Heena Adams [address] [phone] Specialty Hair Spring Winder Endocrinology 06/11/18 Satish Phan MD [address] [place], [place] 301[address] Specialty Hair Spring Winder General Surgery 07/25/18 Alana Kent APRN.TRIMMER OPERATOR THREE KNIFE [address] [place] [address] Transplant Center 03/20/24 Delia Kaufman APRN.TRIMMER OPERATOR THREE KNIFE [address] [place], [place] [address]20671 Molded Goods Controls Operator Internal Medicine 08/16/24 Glen Jean, [facility] [address] [place] [address] Pharmacist Pharmacy 03/08/25 ProviderLeona MD Molded Goods Controls Operator 05/02/25 05/15/25 Plastics Fabricator Or Welder Relationship Specialty Start Date End Date Zaida Gaston MD [address] [place] [address] PCP - General Internal Medicine 04/26/16 Loida Montiel I, DO [address] [address] Specialty Hair Spring Winder Nephrology 06/11/18 Heena Adams [address] [phone] Specialty Hair Spring Winder Endocrinology 06/11/18 Satish Phan MD [address] [place], [place] 488[address] Specialty Hair Spring Winder General Surgery 07/25/18 Alana Kent APRN.TRIMMER OPERATOR THREE KNIFE [address] [place] [address] Transplant Center 03/20/24 Delia Kaufman APRN.TRIMMER OPERATOR THREE KNIFE [address] [place] [address] Molded Goods Controls Operator Internal Medicine 08/16/24 MeyVerna [facility]University [facility] [address] [place] [address] Pharmacist Pharmacy 03/08/25 Leona Esteves MD Molded Goods Controls Operator 05/02/25 05/15/25 Plastics Fabricator Or Welder Relationship Specialty Start Date End Date Zaida Gaston MD [address] [place] [address] PCP - General Internal Medicine 04/26/16 Loida Montiel I, DO [address] 89[address] Specialty Hair Spring Winder Nephrology 06/11/18 Heena Adams [address] [phone] Specialty Hair Spring Winder Endocrinology 06/11/18 Satish Phan MD [address] [place] [address] Specialty Hair Spring Winder General Surgery 07/25/18 Alana Kent APRN.TRIMMER OPERATOR THREE KNIFE [address] [place] [address] Transplant Center 03/20/24 Delia Kaufman APRN.TRIMMER OPERATOR THREE KNIFE [address] [place] [address] Molded Goods Controls Operator Internal Medicine 08/16/24 Glen JeanVerna, [facility] [address] [place] [address] Pharmacist Pharmacy 03/08/25 Leona Esteves MD Molded Goods Controls Operator 05/02/25 05/15/25 Plastics Fabricator Or Welder Relationship Specialty Start Date End Date Zaida Gaston MD [address] [place], [place] 359371 PCP - General Internal Medicine 04/26/16 Loida Montiel I, DO [address] [facility] [address] [address] Specialty Hair Spring Winder Nephrology 06/11/18 Heena Adams [address] [phone] Specialty Hair Spring Winder Endocrinology 06/11/18 Satish Phan MD [address] [place], [place] [phone] Specialty Hair Spring Winder General Surgery 07/25/18 Alana Kent APRN.TRIMMER OPERATOR THREE KNIFE [address] [place] [address] Transplant Center 03/20/24 Delia Kaufman APRN.TRIMMER OPERATOR THREE KNIFE [address] [place], [place] [address] Molded Goods Controls Operator Internal Medicine 08/16/24 Verna Jensen, [facility] [address] [place] [address] Pharmacist Pharmacy 03/08/25 ProviderLeona MD Molded Goods Controls Operator 05/02/25 05/15/25 Goals (unrecognized section and content) [...] section and content) DATE CREATED AUTHOR 04/11/2024 [facility] DATE CREATED AUTHOR AUTHOR'S ORGANIZ ATION 04/27/2025 [facility] DATE CREATED AUTHOR AUTHOR'S ORGANIZ ATION 05/15/2025 [facility] FOR RECORDS PERTAINING TO PATIENTS WHO [...] BE BASED ON THE PRIMARY CLINICAL RECORDS. [facility] the stars [facility]. provides no warranty or guarantee of the accuracy or completeness of information in this document.
[2025-05-17] VITALS (17 sets, daily range): BP systolic 84–106; BP diastolic 40–68; PULSE 82–112; RESP 10–22; TEMP 35.4–39.3; O2SAT 93–100; BMI 23.9
[2025-05-17 00:21] LABS: Hematocrit 32.2 % (40-54); Hemoglobin 10.7 g/dL (13.0-16.5)
[2025-05-17] MEDS: Dext 5%-0.45% NS 1,000 ML 150 ML IV (00:25)
[2025-05-17] MEDS: Pantoprazole Sodium 80 MG in 0.9% Normal Saline (100mL Bag) 80 ML 10 MG CONT INF ×2 (00:29→09:30)
--- NOTE | 2025-05-17 00:53 | PCM.RX.CS ---
Consult Antibiotic Management Pharmacy has been consulted to manage selected antibiotic: Vancomycin Type of Intervention Type of Consult: New start Microbiology Microbiology: Microbiology 05/16/25 14:17 Mucosa - Nose SARS-CoV-2, Influenza & RSV (PCR) - Final Dosing Weight Weight used for dosin.7 kg Estimated Creatinine Clearance Estimated Creatinine Clearance: 35.95 Goal Trough Goal Trough: 15-20 mcg/mL Pharmacy Plan for Drug Dosing Pharmacy Plan for Drug Dosing: Pharmacy Service will continue to monitor and adjust dosing as required. 2000MG GIVEN IN ER 05/16 @ 7482. START 1000NG Q24H AND DRAW TROUGH PRIOR TO 3RD DOSE Follow-Up Labs Follow-Up Labs: Trough: Vancomycin Date/Time Labs Ordered Labs to be done on [date and time ordered]: 05/18 @ 0770
[2025-05-17 01:10] LABS: Anion Gap 11 (5-15); BUN 39 mg/dL (4-19); BUN/Creat Ratio 15.9 RATIO (10-20); Calcium,Total 8.5 mg/dL (7.6-11.0); Carbon Dioxide 19.0 mmol/L (21.0-32.0); Chloride 110 mmol/L (98-108); Estimated Creatinine Clearance 32.70 ml/min (50-250); Glucose 211 mg/dL (70-99); Potassium 4.2 mmol/L (3.3-5.1)
--- NOTE | 2025-05-17 02:11 | CON.PCM.CC_ITS ---
HPI Consult Data Date of Consult: 05/17/25 HPI Narrative HPI Narrative: Mr. Williams Jensen, a 54-year-old male with a history of ESRD s/p renal transplant, HFpEF, type 2 diabetes, LUANNE on CPAP, and chronic neuropathy, presented with two weeks of medication nonadherence. He developed nausea, vomiting, and coffee-ground emesis. On arrival to the ED he was tachycardic to 120s, hypotensive to 79/56, and febrile to 101?F. Initial labs: WBC ~10K, Hgb 10.7, sodium corrected, pH stable, anion gap initially elevated but now closed.. Glucose markedly elevated. ED management included 3L IV fluids, initiation of insulin drip, vancomycin, and D5 ? NS at 150 mL/hr. No pressors initially; later planned Levo for MAP <65. CT abdomen/pelvis showed edematous transplanted right kidney with severe hydronephrosis and a 9 cm fluid collection around ureteral stent/obstruction, plus distal esophageal thickening/possible esophagitis. Chest X-ray without acute findings. Currently his HR is 103, BP 89/59 (MAP ~65), RR 12, SpO? 97% RA, T 101?F. On insulin drip, D5?NS, just completed vancomycin. Urine output since ICU admission ~[address] Confused at times, intermittently refuses family contact. Transplant center accepting transfer for specialized management. [facility] Medical History Staphylococcus aureus bacteremia Hydronephrosis with urinary obstruction due to ureteral calculus Acute on chronic renal insufficiency Acute pyelonephritis due to bacteria MRSA (methicillin resistant staph aureus) culture positive Anxiety Depression Diabetes Former smoker CPAP (continuous positive airway pressure) dependence Atrial fibrillation Myocardial infarct Congestive heart failure (CHF) Diabetic foot ulcer Gas gangrene of foot Necrotizing fasciitis Diabetic foot infection Type 2 diabetes mellitus with diabetic polyneuropathy Non-pressure chronic ulcer of other part of left foot with fat layer exposed Vision loss of left eye Respiratory failure Hypoxemia COVID-19 COVID-19 Type 2 diabetes mellitus with diabetic polyneuropathy Cellulitis of left lower limb Pulmonary edema Dyspnea Fistula (~12/2018) History of left heart catheterization (LHC) (~06/26/11) Atherosclerotic heart disease of [place] coronary artery without angina pectoris Essential hypertension Problem with dialysis access Chronic renal failure, stage 5 Vision problems Pneumonia Kidney stones Kidney failure Anasarca associated with disorder of kidney Autonomic neuropathy Hypoglycemia Acute hypoxemic respiratory failure Acute on chronic diastolic CHF (congestive heart failure) Retention, urine Obesity (BMI 30-39.9) Acute respiratory failure with hypoxia Hypokalemia Noncompliance Diabetic neuropathy Diabetic nephropathy Diabetic retinopathy ILDA (acute kidney injury) Hypertensive emergency Chewing tobacco nicotine dependence GERD (gastroesophageal reflux disease) Anxiety and depression Diabetes mellitus type II, uncontrolled Blind left eye HLD (hyperlipidemia) Right leg pain Chronic ulcer of 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 Cellulitis and abscess of right leg History of acute myocardial infarction Home Medications ?Medication ?Instructions ?Recorded ?Last Taken ?Type prednisone 5 mg tablet 5 mg PO DAILY steroid 03/10/25 History fluoxetine 10 mg capsule 10 mg PO DAILY 03/24/2410/03 History insulin lispro protamine-lispro See Rx Instructions paul bcut .tid 03/30/24 03/10/25 Rx 100 unit/mL (50-50) subcutaneous with meals #42 mL pen (Humalog Mix 50-50 KwikPen) mycophenolate sodium 180 mg 360 mg PO BID kidneys 01/0803/10/25 History tablet,delayed release sulfamethoxazole 400 1 tab PO MOWEFR 01/26/2511/03 History mg-trimethoprim 80 mg tablet carvedilol 12.5 mg tablet 12.5 mg PO BID 03/10/2511/03 History escitalopram oxalate 10 mg tablet 10 mg PO DAILY 03/1003/09/25 History aspirin 81 mg chewable tablet 1 tab PO DAILY 04/14/25 Unknown History bupropion HCl 150 mg 24 hr tablet, 150 mg PO DAILY 03/03 Unknown History extended release gabapentin 100 mg capsule 100 mg PO QHS 04/14/25 Unkno wn History Allergy/AdvReac Type Severity Reaction Status Date / Time No Known Allergies Allergy Verified 04/04/25 11:08 Family History Mother Heart disease Hypertension Father Cancer Brother Cancer Diabetes Sister Diabetes Other Alcohol abuse Depression H/O transfusion of whole blood Kidney disease Surgical History Kidney transplant recipient Renal transplant recipient Kidney replaced by transplant History of artificial lens replacement History of arteriovenostomy for renal dialysis (~08/2018) Status post insertion of dialysis catheter (~08/2018) History of appendectomy History of eye surgery History of cholecystectomy Social History household members: spouse Smoking Status: Never smoker second hand exposure: No alcohol intake: never substance use type: does not use caffeine: No what type of physical activity do you participate in: none ROS ROS Narrative * General: fever, malaise HEENT: chronic left eye blindness CV: tachycardia, hypotension Resp: no acute dyspnea, O? sat stable on RA, no hemoptysis GI: nausea, vomiting, coffee-ground emesis, poor intake : poor urine output, transplant kidney with hydronephrosis Neuro: intermittently confused Skin/Psych: anxious, depressed baseline Objective Data Objective Data Vital Signs: Vital Signs Last response 3 Temperature 39.0 C H 05/17/25 00:56 Temperature Source Core 05/17/25 00:56 Pulse Rate 112 H 05/17/25 00:56 Respiratory Rate 10 L 05/17/25 00:56 Blood Pressure 88/40 L 05/17/25 00:56 Blood Pressure Mean 56 05/17/25 00:56 Blood Pressure Source Monitor 05/17/25 00:00 Blood Pressure Position Semi-Fowlers 05/17/25 00:00 Blood Pressure Location Left Arm 05/17/25 00:00 Pulse Ox 100 05/17/25 00:56 Oxygen Delivery Method Room Air 05/17/25 00:56 I&O: I&O Last 24 Hours 3 05/16/25 05/16/25 05/17/25 11:59 23:59 11:59 Intake Total 4393.90 / 4394.73 0.83 / 0.83 Balance 4393.90 / 4394.73 0.83 / 0.83 I&O: Total Stay 3 05/16/25 13:48 thru 05/17/25 00:00 Intake Total 4394.73 Balance 4394.73 Current Meds Ordered / Administered: Current meds ordered / Administered 3 Generic Name Dose Route Start Last Admin Trade Name Freq PRN Reason Stop Dose Admin Acetaminophen 650 mg 05/16/25 23:58 Acetaminophen 325 Mg Tablet PO Q4H PRN PRN Fever, pain 1-10 Al Hydroxide/Mg Hydroxide 30 ml 05/16/25 23:58 Mag Hydrox/Al Hydrox/Simeth 30 Ml Udc PO Q6H PRN PRN Gastric Burning Albuterol Sulfate 2.5 mg 05/16/25 23:58 Albuterol 2.5 Mg/3 Ml Vial.Neb. INHALATION Q2H PRN PRN Dyspnea, wheezing Aspirin 81 mg 05/17/25 08:00 Aspirin 81 Mg Tab.Chew PO BREAKFAST HEDY Gabapentin 100 mg 05/17/25 22:00 Gabapentin 100 Mg Capsule PO QHS HEDY Glucagon 1 mg 05/16/25 23:58 Glucagon 1 Mg/Ml Syringe IM X1 PRN Hypoglycemia Protocol Guaifenesin 10 ml 05/16/25 23:58 Guaifenesin 10 Ml Udc (200mg/10ml) PO Q4H PRN PRN COUGH Heparin Sodium (Porcine) 5,000 unit 05/17/25 10:00 Heparin Injection (Vial) 5,000 Unit/Ml Vial SC Q12 HEDY Hydralazine HCl 10 mg 05/16/25 23:58 Hydralazine 20 Mg/Ml Vial IV Q4H PRN PRN SBP > 160 Protocol Hydrocortisone Sodium Succinate 100 mg 05/16/25 23:58 05/17/25 00:33 Hydrocortisone Sod Succinate 100 Mg/2 Ml Vial IV 100 mg Q6 HEDY Administration Dextrose/Sodium Chloride 1,000 mls @ 150 mls/hr 05/16/25 23:58 05/17/25 00:25 IV 150 mls/hr .Q6H40M PRN Administration Blood Glucose < 250mg/dL Insulin Human Lispro 100 unit/ 100 mls @ 0 mls/hr 05/16/25 23:58 Sodium Chloride CONT INF .Q0M HEDY Protocol As Directed Dextrose 250 mls @ 0 mls/hr 05/16/25 23:58 Dextrose 10%-Water IV .Q0M PRN HYPOGLYCEMIA Protocol As Directed Pantoprazole Sodium 80 mg/ 100 mls @ 10 mls/hr 05/16/25 23:58 05/17/25 00:29 Sodium Chloride CONT INF 10 mls/hr Q10H HEDY Administration Vancomycin IV-PHARMACY TO DOSE 500 mls @ 250 mls/hr 05/16/25 23:58 1 each/ Sodium Chloride IV X1 PRN Rx to Dose Protocol Piperacillin Sod/Tazobactam 50 mls @ 12.5 mls/hr 05/17/25 06:00 Sod 3.375 gm/ Sodium Chloride IV Q8 HEDY Vancomycin HCl 1,000 mg/ 270 mls @ 250 mls/hr 05/17/25 23:00 Sodium Chloride IV Q24H HEDY Norepinephrine Bitartrate 8 mg 250 mls @ 9.375 mls/hr 05/17/25 01:10 / Sodium Chloride CONT INF .[id number] [facility] Protocol 5 MCG/MIN Melatonin 3 mg 05/16/25 23:58 Melatonin 3 Mg Tablet PO QHS PRN PRN INSOMNIA Ondansetron HCl 4 mg 05/16/25 23:58 Ondansetron 4 Mg/2 Ml Vial IV Q8H PRN PRN NAUSEA/VOMITING Senna/Docusate Sodium 2 tablet 05/16/25 23:58 Senna/Docusate Sodium 1 Tablet PO BID PRN PRN Constipation Sodium Chloride 10 - 40 ml 05/17/25 00:51 0.9% Saline Lock 10 Ml Syringe IV UD PRN SALINE FLUSH Vancomycin Protocol 1 lab 05/18/25 21:30 Vancomycin Trough/Random Due MC 05/18/25 23:30 DAILY [facility] Physical Exam Narrative General: Ill-appearing, intermittently confused, curled on side HEENT: no acute findings noted CV: tachycardic, low BP; no murmurs documented * Resp: non-labored respirations, SpO? 97% RA GI: abdomen not fully described *; CT : Sky in place, scant urine output Neuro: alert but intermittently confused, cooperative at times Skin: warm; no rash documented * Lab / Micro Data 05/17/25 00:10 05/17/25 00:10 Labs: Laboratory Results - last 24 hr 05/16/25 13:30: WBC Cancelled, Corrected WBC Cancelled, RBC Cancelled, Hgb Cancelled, Hct Cancelled, MCV Cancelled, MCH Cancelled, MCHC Cancelled, RDW Std Deviation Cancelled, RDW Coeff of Tomy Cancelled, Plt Count Cancelled, MPV Cancelled, Immature Gran % (Auto) Cancelled, Neut % (Auto) Cancelled, Lymph % (Auto) Cancelled, [place] % (Auto) Cancelled, Eos % (Auto) Cancelled, Baso % (Auto) Cancelled, Absolute Neuts (auto) Cancelled, Absolute Lymphs (auto) Cancelled, Total Counted Cancelled, Neutrophils % (Manual) Cancelled, Band Neutrophils % Cancelled, Lymphocytes % (Manual) Cancelled, Monocytes % (Manual) Cancelled, Eosinophils % (Manual) Cancelled, Basophils % (Manual) Cancelled, Metamyelocytes % Cancelled, Myelocytes % Cancelled, Promyelocytes % Cancelled, Blast Cells % Cancelled, Plasma Cell % (Manual) Cancelled, Other Cells % Cancelled, Nucleated RBC % Cancelled, Nucleated RBCs/100 WBC Cancelled, Differential Comment Cancelled, Diff Path Review Cancelled, Hypersegmented Neuts Cancelled, Atypical Lymphocytes Cancelled, Reactive Lymphocytes Cancelled, Smudge Cells Cancelled, Toxic Granulation Cancelled, Toxic Vacuolation Cancelled, Dohle Bodies Cancelled, Leoncio Rods Cancelled, Platelet Estimate Cancelled, Plt Morphology Comment Cancelled, RBC Morphology Cancelled 05/16/25 13:30: RBC Morphology Cancelled, Polychromasia Cancelled, Hypochromasia Cancelled, Basophilic Stippling Cancelled, Anisocytosis Cancelled, Microcytosis Cancelled, Macrocytosis Cancelled, Spherocytes Cancelled, Sickle Cells Cancelled, Target Cells Cancelled, Tear Drop Cells Cancelled, Ovalocytes Cancelled, Stomatocytes Cancelled, [place] Bodies Cancelled, [place] Cells Cancelled, Bite Cells Cancelled, Crenated Cell Cancelled, Acanthocytes (Spur) Cancelled, Rouleaux Cancelled, Schistocytes Cancelled, Sodium 127 L, Potassium 4.4, Chloride 92 L, Carbon Dioxide 17.3 L, Anion Gap 18 H, BUN 36 H, Creatinine 2.22 H, Estim Creat Clear Calc 35.95 L, Est GFR (MDRD) Non-Af 34 L, BUN/Creatinine Ratio 16.3, Glucose 983 H*, Calcium 9.4, Phosphorus 3.7, Magnesium 2.0, Total Bilirubin 0.72, AST 22, ALT 13, Alkaline Phosphatase 155 H, Total Protein 7.6, Albumin 3.4 L, Globulin 4.2, Albumin/Globulin Ratio 0.8 L, Lipase 18, b-Hydroxybutyric mmol/L 0.1 05/16/25 15:00: WBC 10.1, RBC 4.06 L, Hgb 11.8 L, Hct 37.6 L, MCV 92.6, MCH 29.1, MCHC 31.4 L, RDW Std Deviation 47.9 H, RDW Coeff of Tomy 14.0, Plt Count 269, MPV 9.1, Immature Gran % (Auto) 0.600, Neut % (Auto) 86.9 H, Lymph % (Auto) 6.2 L, [place] % (Auto) 6.1, Eos % (Auto) 0.0, Baso % (Auto) 0.2, Absolute Neuts (auto) 8.8 H, Absolute Lymphs (auto) 0.63 L, Nucleated RBC % 0, Platelet Estimate ADEQUATE, RBC Morphology NORM C+C 05/16/25 16:05: Serum Osmolality 342 H 05/16/25 18:00: Urine Color Yellow, Urine Clarity Clear, Urine pH 6.0, Ur Specific [place] 1.010, Urine Protein 30 H, Urine Glucose (UA) 1000 H, Urine Ketones Negative, Urine Occult Blood 150 H, Urine Nitrite Negative, Urine Bilirubin Negative, Urine Urobilinogen Normal, Ur Leukocyte Esterase 100 H, Urine RBC 0-5 SEEN, Urine WBC 10-25 SEEN, Ur Squamous Epith Cells 0 SEEN, Urine Bacteria 3+, Urine Mucus 0 SEEN, POC Glucose > 500 H* 05/16/25 18:15: Sodium 134, Potassium 5.2 H, Chloride 100, Carbon Dioxide 17.9 L , Anion Gap 15, Glucose 665 H*, Phosphorus 1.7 L, Magnesium 2.1 05/16/25 20:02: POC Glucose 420 H 05/16/25 21:07: POC Glucose 282 H 05/16/25 22:02: POC Glucose 195 H 05/16/25 22:40: Lactic Acid 4.1 H* 05/16/25 22:53: Sodium 141, Potassium 4.0, Chloride 109 H, Carbon Dioxide 18.1 L , Anion Gap 13, Phosphorus 1.6 L, Magnesium 2.0 05/16/25 22:58: POC Glucose 192 H 05/17/25 00:09: POC Glucose 177 H 05/17/25 00:10: Hgb 10.7 L, Hct 32.2 L, Sodium 141, Potassium 4.2, Chloride 110 H, Carbon Dioxide 19.0 L, Anion Gap 11, BUN 39 H, Creatinine 2.44 H, Estim Creat Clear Calc 32.70 L, Est GFR (MDRD) Non-Af 30 L, BUN/Creatinine Ratio 15.9, G lucose 211 H, Calcium 8.5 05/17/25 01:06: POC Glucose 192 H Micro: Microbiology 05/16/25 14:17 Mucosa - Nose SARS-CoV-2, Influenza & RSV (PCR) - Final ABG Data ABG results: ABG 05/16/25 14:36 Specimen Type ANTHONY Sample Site Not entered VBG pH 7.43 H VBG pO2 53 H VBG HCO3 21 L VBG Total CO2 22 L VBG O2 Sat (Calc) 88 H VBG Base Excess -3 L POC Mix VBG pCO2 Pt Tmp 32.2 L O2 Delivery Device Not entered Imaging Radiology Impression Abdomen/Pelvis CT 05/16/25 16:08 IMPRESSION: Gastroesophageal findings to be correlated clinically are discussed above in detail. - Edematous appearing right renal transplant with moderately severe hydronephrosis despite the presence of an adequately positioned intraureteral draining stent, may indicate stent obstruction. 9 cm fluid collection anterior and extraneous to the urinary bladder worrisome for urinoma or other fluid collection. Gas within the urinary bladder to be correlated clinically for significance. Genitourinary findings discussed above in detail. - Multiple other findings and study limitations discussed above. Reading Location: [id number] Chest X-Ray 05/16/25 16:30 IMPRESSION: NO ACUTE FINDINGS. Reading [facility] Assessment and Plan . Assessment and plan: 1. Hyperglycemic crisis * Likely precipitated by insulin nonadherence. * Gap now closed; still on insulin drip + D5?NS. * Plan: * Continue insulin infusion until transition protocol appropriate * Monitor BMP q4h, anion gap, ketones * Maintain D5?NS with K supplementation as needed. * Transition to subcutaneous regimen once stable, awake, and tolerating PO. 2. Sepsis * Fever, hypotension, history of pyelonephritis, current hydronephrosis + fluid collection. * Plan: * Broad spectrum antibiotics: continue vancomycin + add gram-negative coverage * Draw blood cultures prior to antibiotics completion * Maintain MAP >=5 with fluids, norepinephrine if persistent hypotension. * Central line if pressors >5?10 mcg/min. * Transfer to [facility] transplant service for definitive urologic intervention. 3. Renal transplant with severe hydronephrosis & stent obstruction * At risk for graft loss, infection, obstruction, fluid collection. * Plan: * Transfer to transplant center urgently. * Urology/nephrology consultation at receiving facility. * Monitor UOP hourly; maintain Sky patency. * Strict I&O. 4. Shock * Initial hypotension responsive partially to fluids, MAP borderline. * Plan: * Target MAP >=5. * Start norepinephrine if MAP <65 despite fluids. * Monitor lactate, hemodynamics. 5. Upper GI bleed * Hgb 10.7. * Plan: * IV PPI. * Monitor hemoglobin/hematocrit. * GI consult if ongoing hematemesis or Hgb drop. 6. ESRD s/p renal transplant, off immunosuppression * At high risk for rejection and infection. * Plan: * Clarify outpatient immunosuppressive regimen * Restart under guidance of transplant service. 7. Chronic conditions * Supportive management; resume home meds as appropriate when reconciled. * CPAP at night once stable.
--- NOTE | 2025-05-17 02:29 | NURSING ---
this RN informed by ER nurse that patient's sister, Lali Freeman, had called/ shown up requesting information about patient. Per ER nurse, the patient had declined information be given to Lali. On floor, Vivian Pike RN, asked patient if he wanted information to be given to his sister, pt declined. sisters contact info: Lali Freeman [phone]
[2025-05-17 02:43] LABS: Reflex Lactate? Y
[2025-05-17 03:02] LABS: Creatinine, Urine (random) 203.00 mg/dL (39.00-259.00)
[2025-05-17 03:28] LABS: Hematocrit 31.3 % (40-54); Hemoglobin 10.4 g/dL (13.0-16.5); Immature Granulocytes Count 0.050 X10^3/uL (0.0-0.0); Mean Corp Hgb Conc 33.2 g/dL (32-36); Mean Corpuscular Volume 88.7 fL (80-94); Mean Platelet Vol. 9.2 fl (6.2-12.0); NRBC Flagged by Analyzer 0 % (0-5); POSITIVE DIFFERENTIAL YES; POSITIVE MORPHOLOGY YES; Platelet Count 217 K/mm3 (150-450); RBC Distribution Width CV 14.1 % (11.6-14.6); RBC Distribution Width SD 45.7 fl (35.1-43.9); Red Blood Count 3.53 M/mm3 (4.6-6.2); White Blood Count 9.7 K/mm3 (4.4-11.0)
[2025-05-17 03:55] LABS: Differential Indicated SCAN CRITERIA MET
[2025-05-17 04:04] LABS: AST(SGOT) 19 U/L (<=37); Alanine Aminotransfer ALT/SGPT 11 U/L (<=46); Albumin, Serum 2.9 g/dL (3.5-5.0); Alkaline Phosphatase 103 U/L (40-129); Anion Gap 11 (5-15); BUN 40 mg/dL (4-19); BUN/Creat Ratio 16.2 RATIO (10-20); Calcium,Total 8.3 mg/dL (7.6-11.0); Carbon Dioxide 18.2 mmol/L (21.0-32.0); Chloride 110 mmol/L (98-108); Estimated Creatinine Clearance 32.18 ml/min (50-250); Globulin 3.2 g/dL (2.2-4.2); Glucose 328 mg/dL (70-99); Magnesium 1.8 mg/dL (1.5-2.2); Potassium 4.1 mmol/L (3.3-5.1)
[2025-05-17 04:54] LABS: Dohle Bodies 1+; Red Cell Morphology NORM C+C NORMAL (NORM C&C); Toxic Granulation 1+; Vacuolated Cells 1+
[2025-05-17] MEDS: Piperacil/Tazobactam 3.375 GM in 0.9% Normal Saline (50mL MB+) 50 ML IV ×3 (05:19→22:32)
[2025-05-17] MEDS: 0.9% Saline Lock 10 ML Syringe IV ×2 (05:28→18:14)
[2025-05-17] MEDS: Insulin Lispro 100 UNIT in 0.9% Normal Saline (100mL Bag) 99 ML CONT INF (06:00)
[2025-05-17] MEDS: 0.9% Normal Saline (1000mL) 1,000 ML 100 ML IV ×2 (07:04→18:14)
--- NOTE | 2025-05-17 07:08 | PCM.PN.HOSP ---
Reason for Visit Chief Complaint: Elevated BS secondary to lack on insulin x 2 weeks, cough, N/V, 1 coffee ground emesis. Subjective Subjective Feeling better overall. Objective Data Objective Data Vital Signs: Vital Signs Temp Pulse Resp BP Pulse Ox O2 Del Method O2 Flow Rate 35.4 C L 83 10 L 94/63 100 Nasal Cannula 2 05/17/25 07:00 05/17/25 07:00 05/17/25 07:00 05/17/25 07:00 05/17/25 07:00 05/17/25 07:00 05/17/25 07:00 Oxygen Flow Rate (L/min) 2 Oxygen Delivery Method Nasal Cannula Weight: 71.7 kg Body Mass Index (BMI) 23.9 Intake & Output: Intake and Output for Last 24 Hours 05/15/25 05/16/25 05/17/25 23:59 23:59 23:59 Intake Total 4393.90 / 4394.73 1451.52 / 1451.52 Output Total 425 / 425 Balance 4393.90 / 4394.73 1026.52 / 1026.52 Lab / Micro Data 05/17/25 03:18 05/17/25 06:25 Labs: Laboratory Results - last 24 hr 05/16/25 13:30: WBC Cancelled, Corrected WBC Cancelled, RBC Cancelled, Hgb Cancelled, Hct Cancelled, MCV Cancelled, MCH Cancelled, MCHC Cancelled, RDW Std Deviation Cancelled, RDW Coeff of Tomy Cancelled, Plt Count Cancelled, MPV Cancelled, Immature Gran % (Auto) Cancelled, Neut % (Auto) Cancelled, Lymph % (Auto) Cancelled, [place] % (Auto) Cancelled, Eos % (Auto) Cancelled, Baso % (Auto) Cancelled, Absolute Neuts (auto) Cancelled, Absolute Lymphs (auto) Cancelled, Total Counted Cancelled, Neutrophils % (Manual) Cancelled, Band Neutrophils % Cancelled, Lymphocytes % (Manual) Cancelled, Monocytes % (Manual) Cancelled, Eosinophils % (Manual) Cancelled, Basophils % (Manual) Cancelled, Metamyelocytes % Cancelled, Myelocytes % Cancelled, Promyelocytes % Cancelled, Blast Cells % Cancelled, Plasma Cell % (Manual) Cancelled, Other Cells % Cancelled, Nucleated RBC % Cancelled, Nucleated RBCs/100 WBC Cancelled, Differential Comment Cancelled, Diff Path Review Cancelled, Hypersegmented Neuts Cancelled, Atypical Lymphocytes Cancelled, Reactive Lymphocytes Cancelled, Smudge Cells Cancelled, Toxic Granulation Cancelled, Toxic Vacuolation Cancelled, Dohle Bodies Cancelled, Leoncio Rods Cancelled, Platelet Estimate Cancelled, Plt Morphology Comment Cancelled, RBC Morphology Cancelled 05/16/25 13:30: RBC Morphology Cancelled, Polychromasia Cancelled, Hypochromasia Cancelled, Basophilic Stippling Cancelled, Anisocytosis Cancelled, Microcytosis Cancelled, Macrocytosis Cancelled, Spherocytes Cancelled, Sickle Cells Cancelled, Target Cells Cancelled, Tear Drop Cells Cancelled, Ovalocytes Cancelled, Stomatocytes Cancelled, Ascencio-Lannon Bodies Cancelled, [place] Cells Cancelled, Bite Cells Cancelled, Crenated Cell Cancelled, Acanthocytes (Spur) Cancelled, Rouleaux Cancelled, Schistocytes Cancelled, Sodium 127 L, Potassium 4.4, Chloride 92 L, Carbon Dioxide 17.3 L, Anion Gap 18 H, BUN 36 H, Creatinine 2.22 H, Estim Creat Clear Calc 35.95 L, Est GFR (MDRD) Non-Af 34 L, BUN/Creatinine Ratio 16.3, Glucose 983 H*, Calcium 9.4, Phosphorus 3.7, Magnesium 2.0, Total Bilirubin 0.72, AST 22, ALT 13, Alkaline Phosphatase 155 H, Total Protein 7.6, Albumin 3.4 L, Globulin 4.2, Albumin/Globulin Ratio 0.8 L, Lipase 18, b-Hydroxybutyric mmol/L 0.1 05/16/25 15:00: WBC 10.1, RBC 4.06 L, Hgb 11.8 L, Hct 37.6 L, MCV 92.6, MCH 29.1, MCHC 31.4 L, RDW Std Deviation 47.9 H, RDW Coeff of Tomy 14.0, Plt Count 269, MPV 9.1, Immature Gran % (Auto) 0.600, Neut % (Auto) 86.9 H, Lymph % (Auto) 6.[address] L, [place] % (Auto) 6.1, Eos % (Auto) 0.0, Baso % (Auto) 0.2, Absolute Neuts (auto) 8.8 H, Absolute Lymphs (auto) 0.63 L, Nucleated RBC % 0, Platelet Estimate ADEQUATE, RBC Morphology NORM C+C 05/16/25 16:05: Serum Osmolality 342 H 05/16/25 18:00: Urine Color Yellow, Urine Clarity Clear, Urine pH 6.0, Ur Specific [place] 1.010, Urine Protein 30 H, Urine Glucose (UA) 1000 H, Urine Ketones Negative, Urine Occult Blood 150 H, Urine Nitrite Negative, Urine Bilirubin Negative, Urine Urobilinogen Normal, Ur Leukocyte Esterase 100 H, Urine RBC 0-5 SEEN, Urine WBC 10-25 SEEN, Ur Squamous Epith Cells 0 SEEN, Urine Bacteria 3+, Urine Mucus 0 SEEN, POC Glucose > 500 H* 05/16/25 18:15: Sodium 134, Potassium 5.2 H, Chloride 100, Carbon Dioxide 17.9 L, Anion Gap 15, Glucose 665 H*, Phosphorus 1.7 L, Magnesium 2.1 05/16/25 20:02: POC Glucose 420 H 05/16/25 21:07: POC Glucose 282 H 05/16/25 22:02: POC Glucose 195 H 05/16/25 22:40: Lactic Acid 4.1 H* 05/16/25 22:53: Sodium 141, Potassium 4.0, Chloride 109 H, Carbon Dioxide 18.1 L, Anion Gap 13, Phosphorus 1.6 L, Magnesium 2.0 05/16/25 22:58: POC Glucose 192 H 05/17/25 00:09: POC Glucose 177 H 05/17/25 00:10: Hgb 10.7 L, Hct 32.2 L, Sodium 141, Potassium 4.2, Chloride 110 H, Carbon Dioxide 19.0 L, Anion Gap 11, BUN 39 H, Creatinine 2.44 H, Estim Creat Clear Calc 32.70 L, Est GFR (MDRD) Non-Af 30 L, BUN/Creatinine Ratio 15.9, Glucose 211 H, Calcium 8.5 05/17/25 01:06: POC Glucose 192 H 05/17/25 02:05: Ur Random Sodium 27, Urine Creatinine 203.00 05/17/25 02:08: POC Glucose 244 H 05/17/25 03:11: POC Glucose 276 H 05/17/25 03:18: WBC 9.7, RBC 3.53 L, Hgb 10.4 L, Hct 31.3 L, MCV 88.7, MCH 29.5, MCHC 33.2 D, RDW Std Deviation 45.7 H, RDW Coeff of Tomy 14.1, Plt Count 217, MPV 9.2, Immature Gran % (Auto) 0.500, Neut % (Auto) 89.9 H, Lymph % (Auto) 5.[address] L, [place] % (Auto) 3.8, Eos % (Auto) 0.0, Baso % (Auto) 0.3, Absolute Neuts (auto) 8.7 H, Absolute Lymphs (auto) 0.54 L, Nucleated RBC % 0, Toxic Granulation 1+, Toxic Vacuolation 1+, Dohle Bodies 1+, Platelet Estimate ADEQUATE, RBC Morphology NORM C+C, Sodium 139, Potassium 4.1, Chloride 110 H, Carbon Dioxide 18.2 L, Anion Gap 11, BUN 40 H, Creatinine 2.48 H, Estim Creat Clear Calc 32.18 L, Est GFR (MDRD) Non-Af 30 L, BUN/Creatinine Ratio 16.2, Glucose 328 H, Hemoglobin A1c 11.2 H, Lactic Acid 1.3, Calcium 8.3, Phosphorus 2.4 L 05/17/25 03:18: Phosphorus Cancelled, Magnesium 1.8, Total Bilirubin 0.45, AST 19, ALT 11, Alkaline Phosphatase 103, Total Protein 6.1, Albumin 2.9 L, Globulin 3.2, Albumin/Globulin Ratio 0.9 05/17/25 04:09: POC Glucose 272 H 05/17/25 05:15: POC Glucose 260 H 05/17/25 06:05: POC Glucose 264 H Micro: Microbiology 05/16/25 23:25 Mucosa - Nasopharyngeal Respiratory Panel (PCR) - Final Rhinovirus 05/16/25 18:00 Urine Catheter - Sky Legionella Antigen - Final 05/16/25 18:00 Urine Catheter - Sky Streptococcus pneumoniae Antigen (M - Final 05/17/25 00:10 Nasal Secretion MRSA (PCR) - Final 05/16/25 14:17 Mucosa - Nose SARS-CoV-2, Influenza & RSV (PCR) - Final ABG Data ABG results: ABG 05/16/25 14:36 Specimen Type ANTHONY Sample Site Not entered VBG pH 7.43 H VBG pO2 53 H VBG HCO3 21 L VBG Total CO2 22 L VBG O2 Sat (Calc) 88 H VBG Base Excess -3 L POC Mix VBG pCO2 Pt Tmp 32.2 L O2 Delivery Device Not entered Radiography Diagnostic Testing: Radiology Impression Abdomen/Pelvis CT 05/16/25 16:08 IMPRESSION: Gastroesophageal findings to be correlated clinically are discussed above in detail. - Edematous appearing right renal transplant with moderately severe hydronephrosis despite the presence of an adequately positioned intraureteral draining stent, may indicate stent obstruction. 9 cm fluid collection anterior and extraneous to the urinary bladder worrisome for urinoma or other fluid collection. Gas within the urinary bladder to be correlated clinically for significance. Genitourinary findings discussed above in detail. - Multiple other findings and study limitations discussed above. Reading Location: [id number] Chest X-Ray 05/16/25 16:30 IMPRESSION: NO ACUTE FINDINGS. Reading [facility] Physical Exam Const alert and no apparent distress Constitutional Narrative: On Chino hugger HEENT head/scalp atraumatic and moist oral mucous membranes Resp normal respiratory effort, no retractions, no use of accessory muscles and clear to auscultation bilaterally Cardio regular rate, regular rhythm, S1 normal heart sound and S2 normal heart sound GI normal to inspection, nondistended, normoactive bowel sounds, soft to palpation, non-tender and non-distended Extremity normal to inspection and no clubbing, cyanosis or edema Neuro moves all extremities and no focal motor deficits Sensorium / Orientation: awake and alert Assessment & Plan Assessment/Plan (1) Septic shock: PLAN: Plan Acute Septic Shock secondary to acute complicated urinary tract infection status post recent ureteral stent intervention at [facility] with edematous right renal transplant with moderately severe hydronephrosis despite presence of an intraureter draining stent possibly indicative of stent obstruction with a 9 cm fluid collection anterior and extraneous to the urinary bladder worrisome for urinoma complicated by recent pyelonephritis of the transplant kidney Patient with evidence of sepsis-induced organ dysfunction/tissue hypoperfusion and sepsis induced hypotension despite adequate fluid administration as evidenced by MAP less than 65 despite significant aggressive hydration, hypotension, lactic acidosis, acute kidney injury with creatinine greater than 2), Has not required pressors. DW Dr Goddard, [facility] physician at [facility]. No need based on current HDS at this time. Then [facility] may choose to wait 24 hours before accepting the patient. Again spoke with the employee communications coordinator and that is requested by the medical department for us to reinitiate the transfer 24 hours after the patient has been transferred to a general medical floor. On stress-dose steroids with hydrocortisone. Will de-escalate to prednisone taper starting on the ninth. Significant hyperglycemia with HHS 2/2 to non-compliance type 2 Diabetic. Admission glucose 665. Improved with insulin gtt. Will DC insulin gtt. Start basal and SSI. a1c 11.2. Coffee-ground emesis Hg stable. On IV PPI. Suspected Acute Viral Syndrome 2/ 2 rhinovirus supportive mgmt. ILDA on Hx ESRD now s/p recent R renal transplant with CKD stage II per prior GFR trending secondary to likely shock, poor intake Patient is awaiting tertiary facility transfer to [facility] however if there is prolonged transfer delay low threshold to involve nephrology if necessary. Temporarily holding prednisone therapy as well as mycophenolate given infectious presentation as noted above with planned stress dose steroids, holding Bactrim given significant broad-spectrum antibiotic therapy concurrently as noted. Chronic medical conditions: HFpEF: Most recent echocardiogram noted 04/16/2025 with EF 65 to 70%, stage I diastolic dysfunction, moderate concentric LVH, mild focal AV thickening, monitor for overload as patient was administered 4 L of fluids in the ED prior to initiation of norepinephrine therapy, will hold on continued aggressive fluids and be very judicious, not on statin therapy per current list, holding beta-elizabeth therapy, not on TOM/ARB likely secondary to renal disease, not on any diuretic per current list, continue baby aspirin. Anxiety and depression: Clarifying as patient is listed on both escitalopram and fluoxetine in addition to bupropion, once clarified may continue with hold parameters/alteration in dosing as needed based on renal function. Hypertension: Holding all hypertensive regimen given hypotensive presentation with septic shock as noted, add back once clinically appropriate. Hyperlipidemia: Per current list on a regimen, defer to outpatient. Chronic normocytic anemia/AOCD: Admission hemoglobin 11.8, MCV 92.6 however significantly dehydrated, baseline noted previously 10-11, continue to closely trend. LUANNE: Given recent bouts of nausea and emesis will temporally hold CPAP usage, supplemental oxygen will be continued nightly. DVT prophylaxis: Heparin. Full Code. Disposition: Pending transfer to [facility] Patient will be transition to progressive care unit status. Will need to wait 24 hours while on that unit and then reinitiate the transfer on the nin. Charges/Coding Visit Charges Inpatient E&M: 90467 [facility] Hosp L3
[2025-05-17 07:35] LABS: Anion Gap 11 (5-15); Carbon Dioxide 17.5 mmol/L (21.0-32.0); Chloride 110 mmol/L (98-108); Magnesium 2.1 mg/dL (1.5-2.2); Potassium 4.1 mmol/L (3.3-5.1)
[2025-05-17] MEDS: Heparin Injection (Vial) 5,000 UNIT/ML VIAL 5000 UNIT SC ×2 (09:58→22:11)
[2025-05-17] MEDS: Insulin Glargine-YFGN 100 UNIT/ML Pen 20 UNIT SC ×2 (10:00→22:19)
--- NOTE | 2025-05-17 11:34 | CASEMGMT ---
Insurance review for hospitals In-network with [facility] insurance if transfer is recommended is as follows: [facility], [facility], [facility], [facility], [facility], [facility], & .
--- NOTE | 2025-05-17 12:37 | CASEMGMT ---
ANDER GUERRA Readmission Chart Review Index: 04/15/25-04/18/25. Dx: Acute Pyelonephritis, Kidney Stone with Hydronephrosis Current: 05/16/25. Dx: Septic Shock, UTI, ILDA From the index admission, the pt was transferred to [facility]. This was due to Urology stating that the pt should be transferred to [facility] for the sepsis due to an infected right kidney stone with possible pyelonephritis. It is also noted that the pt has been living at [facility] sheltered housing in [place]. See H&P. The patient re-presents to [facility] with high blood sugar levels, noting he has been off his insulin for 2 weeks secondary to being unable to strip picker his insulin due to a lack of transport/assistance. SW has been notified. Pt was admitted to ICU for further management. Per ICU rounds, pt requires transfer to [facility] again. A tertiary list has been entered. No further CM needs identified at this time. Heena WATSON RN, CM
[2025-05-17] MEDS: Pantoprazole Sodium 40 MG in 0.9% Normal Saline (100mL MB+) 100 ML 300 MG IV (22:08)
--- NOTE | 2025-05-17 23:17 | PN.HOSP_ITS ---
Hospitalist Note Notified by nrsg of HS glucometer results of 473 being above SS lispro coverage. Noted hgb A1c on admission today 11.2, possibly indicative of dietary and/or medical noncompliance with prescribed home regimen, at the very least non- optimization. I am hesitant to adjust SSI to Med-High at this time. He has received 20units of glargine SC. I have ordered 10units lispro SC x1.
[2025-05-18] MEDS: Vancomycin HCl 1,000 MG in 0.9% Normal Saline (250mL Bag) 250 ML 250 MG IV (02:45)
[2025-05-18 03:48] VITALS: BP 114/73; PULSE 78; RESP 14; TEMP 36.3; O2SAT 98
[2025-05-18] MEDS: Piperacil/Tazobactam 3.375 GM in 0.9% Normal Saline (50mL MB+) 50 ML IV ×3 (04:53→21:59)
[2025-05-18 05:48] LABS: Hematocrit 33.2 % (40-54); Hemoglobin 10.7 g/dL (13.0-16.5); Immature Granulocytes Count 0.080 X10^3/uL (0.0-0.0); Mean Corp Hgb Conc 32.2 g/dL (32-36); Mean Corpuscular Volume 89.7 fL (80-94); Mean Platelet Vol. 10.0 fl (6.2-12.0); NRBC Flagged by Analyzer 0 % (0-5); POSITIVE DIFFERENTIAL YES; POSITIVE MORPHOLOGY YES; Platelet Count 223 K/mm3 (150-450); RBC Distribution Width CV 14.3 % (11.6-14.6); RBC Distribution Width SD 46.9 fl (35.1-43.9); Red Blood Count 3.70 M/mm3 (4.6-6.2); White Blood Count 10.8 K/mm3 (4.4-11.0)
[2025-05-18 05:54] VITALS: BMI 26.7
[2025-05-18 05:56] LABS: Differential Indicated SCAN CRITERIA MET
[2025-05-18 06:16] LABS: Differential Comment SCANNED
[2025-05-18 06:29] LABS: AST(SGOT) 28 U/L (<=37); Alanine Aminotransfer ALT/SGPT 18 U/L (<=46); Albumin, Serum 2.6 g/dL (3.5-5.0); Alkaline Phosphatase 87 U/L (40-129); Anion Gap 11 (5-15); BUN 51 mg/dL (4-19); BUN/Creat Ratio 20.7 RATIO (10-20); Calcium,Total 8.2 mg/dL (7.6-11.0); Carbon Dioxide 16.7 mmol/L (21.0-32.0); Chloride 106 mmol/L (98-108); Estimated Creatinine Clearance 32.70 ml/min (50-250); Globulin 3.2 g/dL (2.2-4.2); Glucose 422 mg/dL (70-99); Potassium 4.3 mmol/L (3.3-5.1)
[2025-05-18 07:00] LABS: Magnesium 2.0 mg/dL (1.5-2.2)
[2025-05-18 08:14] VITALS: O2SAT 95
--- NOTE | 2025-05-18 08:44 | PCM.PN.HOSP ---
Reason for Visit Chief Complaint: Elevated BS secondary to lack on insulin x 2 weeks, cough, N/V, 1 coffee ground emesis. Subjective Subjective Complains of weakness of left hand. Objective Data Objective Data Vital Signs: Vital Signs Temp Pulse Resp BP Pulse Ox O2 Del Method O2 Flow Rate 36.3 C L 78 14 114/73 95 Room Air 1 05/18/25 03:48 05/18/25 03:48 05/18/25 03:48 05/18/25 03:48 05/18/25 08:14 05/18/25 08:14 05/17/25 09:00 Oxygen Flow Rate (L/min) 1 Oxygen Delivery Method Room Air Weight: 79.9 kg Body Mass Index (BMI) 26.7 Intake & Output: Intake and Output for Last 24 Hours 05/16/25 05/17/25 05/18/25 23:59 23:59 23:59 Intake Total 4393.90 / 4394.73 5118.43 / 5118.43 320 / 320 Output Total 775 / 775 Balance 4393.90 / 4394.73 4343.43 / 4343.43 320 / 320 Lab / Micro Data 05/18/25 05:32 05/18/25 05:32 Labs: Laboratory Results - last 24 hr 05/17/25 12:10: POC Glucose 260 H 05/17/25 16:46: POC Glucose 324 H 05/17/25 22:17: POC Glucose 473 H* 05/17/25 23:24: POC Glucose 479 H* 05/18/25 01:28: POC Glucose 423 H 05/18/25 05:32: WBC 10.8, RBC 3.70 L, Hgb 10.7 L, Hct 33.2 L, MCV 89.7, MCH 28.9, MCHC 32.2, RDW Std Deviation 46.9 H, RDW Coeff of Tomy 14.3, Plt Count 223, MPV 10.0, Immature Gran % (Auto) 0.700, Neut % (Auto) 88.7 H, Lymph % (Auto) 4.8 L, [place] % (Auto) 5.6, Eos % (Auto) 0.0, Baso % (Auto) 0.2, Absolute Neuts (auto) 9.5 H, Absolute Lymphs (auto) 0.52 L, Nucleated RBC % 0, Differential Comment SCANNED, Sodium 134, Potassium 4.3, Chloride 106, Carbon Dioxide 16.7 L, Anion Gap 11, BUN 51 H, Creatinine 2.44 H, Estim Creat Clear Calc 32.70 L, Est GFR (MDRD) Non-Af 30 L, BUN/Creatinine Ratio 20.7 H, Glucose 422 H, Calcium 8.2, Phosphorus 3.7, Magnesium 2.0, Total Bilirubin 0.33, AST 28, ALT 18, Alkaline Phosphatase 87, Total Protein 5.8 L, Albumin 2.6 L, Globulin 3.2, Albumin/Globulin Ratio 0.8 L 05/18/25 06:15: POC Glucose 385 H Micro: Microbiology 05/17/25 02:03 Blood Culture (Wb) - Arm Right Blood Culture - Preliminary GNR lactose knife setter grinder machine 05/17/25 01:25 Blood Culture (Wb) - Arm Left Blood Culture - Preliminary GNR lactose knife setter grinder machine 05/17/25 12:23 Stool Clostridioides difficile (PCR) - Final 05/17/25 12:23 Stool Stool Occult Blood (PARTH) - Final Occult Blood Positive 05/16/25 23:25 Mucosa - Nasopharyngeal Respiratory Panel (PCR) - Final Rhinovirus 05/16/25 18:00 Urine Catheter - Sky Legionella Antigen - Final 05/16/25 18:00 Urine Catheter - Sky Streptococcus pneumoniae Antigen (M - Final 05/17/25 00:10 Nasal Secretion MRSA (PCR) - Final 05/16/25 14:17 Mucosa - Nose SARS-CoV-2, Influenza & RSV (PCR) - Final Physical Exam Const alert and no apparent distress HEENT head/scalp atraumatic and moist oral mucous membranes Resp normal respiratory effort, no retractions, no use of accessory muscles and clear to auscultation bilaterally Cardio regular rate, regular rhythm, S1 normal heart sound and S2 normal heart sound GI normal to inspection, nondistended, normoactive bowel sounds, soft to palpation, non-tender and non-distended Extremity normal to inspection and full ROM Extremity Narrative: weakness of left 4th and 5th fingers. Assessment & Plan Assessment/Plan (1) Septic shock: PLAN: Plan Acute Septic Shock secondary to acute complicated urinary tract infection status post recent ureteral stent intervention at [facility] with edematous right renal transplant with moderately severe hydronephrosis despite presence of an intraureter draining stent possibly indicative of stent obstruction with a 9 cm fluid collection anterior and extraneous to the urinary bladder worrisome for urinoma complicated by recent pyelonephritis of the transplant kidney Patient with evidence of sepsis-induced organ dysfunction/tissue hypoperfusion and sepsis induced hypotension despite adequate fluid administration as evidenced by MAP less than 65 despite significant aggressive hydration, hypotension, lactic acidosis, acute kidney injury with creatinine greater than 2), Has not required pressors. BIRGIT Goddard, [facility] physician at [facility]. No need based on current HDS at this time. Then [facility] may choose to wait 24 hours before accepting the patient. Again spoke with the check and transfer beader and that is requested by the medical department for us to reinitiate the transfer 24 hours after the patient has been transferred to a general medical floor. On stress-dose steroids with hydrocortisone. Will de-escalate to prednisone taper starting on the . BIRGIT F main medicine quarterback, who agreed to accept patient to their service. Transfer line was unsure how soon patient could be transferred over, hopefully today. Significant hyperglycemia with HHS 2/2 to non-compliance type 2 Diabetic. Admission glucose 665. Improved with insulin gtt. Will DC insulin gtt. a1c 11.2. Still poorly controlled, will increase basal insulin from 20 BID, to 35 Coffee-ground emesis Hg stable. On IV PPI. Suspected Acute Viral Syndrome 2/ 2 rhinovirus supportive mgmt. ILDA on Hx ESRD now s/p recent R renal transplant with CKD stage II per prior GFR trending secondary to likely shock, poor intake Patient is awaiting tertiary facility transfer to [facility] however if there is prolonged transfer delay low threshold to involve nephrology if necessary. Temporarily holding prednisone therapy as well as mycophenolate given infectious presentation as noted above with planned stress dose steroids, holding Bactrim given significant broad-spectrum antibiotic therapy concurrently as noted. Left ulnar neuropathy suspected. no other neurologic deficits monitor. Chronic medical conditions: HFpEF: Most recent echocardiogram noted 04/16/2025 with EF 65 to 70%, stage I diastolic dysfunction, moderate concentric LVH, mild focal AV thickening, monitor for overload as patient was administered 4 L of fluids in the ED prior to initiation of norepinephrine therapy, will hold on continued aggressive fluids and be very judicious, not on statin therapy per current list, holding beta-elizabeth therapy, not on TOM/ARB likely secondary to renal disease, not on any diuretic per current list, continue baby aspirin. Anxiety and depression: Clarifying as patient is listed on both escitalopram and fluoxetine in addition to bupropion, once clarified may continue with hold parameters/alteration in dosing as needed based on renal function. Hypertension: Holding all hypertensive regimen given hypotensive presentation with septic shock as noted, add back once clinically appropriate. Hyperlipidemia: Per current list on a regimen, defer to outpatient. Chronic normocytic anemia/AOCD: Admission hemoglobin 11.8, MCV 92.6 however significantly dehydrated, baseline noted previously 10-11, continue to closely trend. LUANNE: Given recent bouts of nausea and emesis will temporally hold CPAP usage, supplemental oxygen will be continued nightly. DVT prophylaxis: Heparin. Full Code. Charges/Coding Visit Charges Inpatient E&M: 95743 Subs Hosp L2
[2025-05-18 08:47] VITALS: BP 128/80; PULSE 85; RESP 14; TEMP 36.4; O2SAT 99
[2025-05-18] MEDS: 0.9% Normal Saline (1000mL) 1,000 ML 100 ML IV (08:53)
[2025-05-18] MEDS: Pantoprazole Sodium 40 MG in 0.9% Normal Saline (100mL MB+) 100 ML 300 MG IV ×2 (08:53→22:11)
[2025-05-18] MEDS: Heparin Injection (Vial) 5,000 UNIT/ML VIAL 5000 UNIT SC ×2 (08:53→21:57)
[2025-05-18] MEDS: Insulin Glargine-YFGN 100 UNIT/ML Pen 20 UNIT SC (08:54)
[2025-05-18] MEDS: Insulin Glargine-YFGN 100 UNIT/ML Pen 35 UNIT SC ×2 (11:11→21:58)
--- NOTE | 2025-05-18 11:40 | CASEMGMT ---
Social Work SW met with pt to complete SDOH. Pt currently lives at [facility] and has been there several months. PT states they are aware that he is in the hospital and [facility] can return to [facility] when discharged. PT is working with [employer] to find permanent housing. Pt told RNCM that he did not picker and packer prescriptions due to transportation. Pt is aware of [employer] and states he has a pass, but has not used the bus system yet. SW encouraged pt to utilized bus system to get to pharmacy and picker and packer medications and importance of this. Pt expressing understanding. SW provided written resources and city bus map from [facility]. Pt denies any other concerns. Pt to be transferred to [facility] and states they will give him a taxi voucher to return to [place] when he dischrages. CRISTHIAN Hatch
--- NOTE | 2025-05-18 13:59 | CASEMGMT ---
Social Work SW spoke with [employer] CHARLIE. CM expressed concerns regarding the patients medical problems and living at a homeless [facility]. CHARLIE requested a referral to the waiver program at [facility] for assisted living. ADDY submitted a referral. SARA Lemus
[2025-05-18] MEDS: 0.9% Saline Lock 10 ML Syringe IV (14:47)
[2025-05-18 17:00] VITALS: BP 110/94; PULSE 85; RESP 14; TEMP 36.3; O2SAT 100
[2025-05-18 21:29] VITALS: BP 139/76; PULSE 82; RESP 18; TEMP 36.6; O2SAT 99
[2025-05-18] MEDS: Vancomycin Trough/Random Due 1 LAB MC (21:56)
[2025-05-18 23:25] LABS: Vancomycin, Trough Level 13.8 ug/mL (5.0-15.0)
[2025-05-19] VITALS (7 sets, daily range): BP systolic 151–164; BP diastolic 75–91; PULSE 77–97; RESP 16–18; TEMP 36.4–37.2; O2SAT 95–100; BMI 27.6
[2025-05-19] MEDS: 0.9% Normal Saline (1000mL) 1,000 ML 100 ML IV ×3 (00:29→20:16)
--- NOTE | 2025-05-19 01:16 | PCM.RX.CS ---
Consult Antibiotic Management Pharmacy has been consulted to manage selected antibiotic: Vancomycin Type of Intervention Type of Consult: Follow-up Labs Labs: Sodium 134 mmol/L (133-145) 05/18/25 05:32 Potassium 4.3 mmol/L (3.3-5.1) 05/18/25 05:32 Chloride 106 mmol/L (98-108) 05/18/25 05:32 Carbon Dioxide 16.7 mmol/L (21.0-32.0) L 05/18/25 05:32 Anion Gap 11 (5-15) 05/18/25 05:32 BUN 51 mg/dL (4-19) H 05/18/25 05:32 Creatinine 2.44 mg/dL (0.70-1.20) H 05/18/25 05:32 Est GFR (MDRD) Non-Af 30 (>60) L 05/18/25 05:32 BUN/Creatinine Ratio 20.7 RATIO (10-20) H 05/18/25 05:32 Glucose 422 mg/dL (70-99) H 05/18/25 05:32 Vancomycin Trough 13.8 ug/mL (5.0-15.0) 05/18/25 22:49 Microbiology Microbiology: Microbiology 05/16/25 18:00 Urine Catheter - Sky Urine Culture - Preliminary GNR lactose real estate consultant 05/17/25 02:03 Blood Culture (Wb) - Arm Right Blood Culture - Preliminary GNR lactose real estate consultant 05/17/25 01:25 Blood Culture (Wb) - Arm Left Blood Culture - Preliminary GNR lactose real estate consultant 05/17/25 12:23 Stool Clostridioides difficile (PCR) - Final 05/17/25 12:23 Stool Stool Occult Blood (PARTH) - Final Occult Blood Positive 05/16/25 23:25 Mucosa - Nasopharyngeal Respiratory Panel (PCR) - Final Rhinovirus 05/16/25 18:00 Urine Catheter - Sky Legionella Antigen - Final 05/16/25 18:00 Urine Catheter - Sky Streptococcus pneumoniae Antigen (M - Final 05/17/25 00:10 Nasal Secretion MRSA (PCR) - Final 05/16/25 14:17 Mucosa - Nose SARS-CoV-2, Influenza & RSV (PCR) - Final Goal Trough Goal Trough: 15-20 mcg/mL Pharmacy Plan for Drug Dosing Pharmacy Plan for Drug Dosing: Pharmacy Service will continue to monitor and adjust dosing as required. TROUGH 13.8 @ 20 HOURS. INCREASE TO 1250MG Q24H AND DRAW TROUGH PRIOR TO 3RD DOSE Follow-Up Labs Follow-Up Labs: Trough: Vancomycin Date/Time Labs Ordered Labs to be done on [date and time ordered]: 05/20 @ 2300
[2025-05-19] MEDS: Vancomycin HCl 1,250 MG in 0.9% Normal Saline (250mL Bag) 250 ML 167 MG IV (02:08)
[2025-05-19] MEDS: Piperacil/Tazobactam 3.375 GM in 0.9% Normal Saline (50mL MB+) 50 ML IV ×3 (05:41→23:11)
--- NOTE | 2025-05-19 08:11 | PN.HOSP_ITS ---
Reason for Visit Chief Complaint: Elevated BS secondary to lack on insulin x 2 weeks, cough, N/V, 1 coffee ground emesis. Subjective Subjective Feeling unwell with nausea and abdominal pain. Objective Data Objective Data Vital Signs: Vital Signs Temp Pulse Resp BP Pulse Ox O2 Del Method O2 Flow Rate 37.0 C 96 18 155/85 H 96 Room Air 1 05/19/25 05:46 05/19/25 05:46 05/19/25 05:46 05/19/25 05:46 05/19/25 05:46 05/19/25 05:46 05/17/25 09:00 Oxygen Flow Rate (L/min) 1 Oxygen Delivery Method Room Air Weight: 82.5 kg Body Mass Index (BMI) 27.6 Intake & Output: Intake and Output for Last 24 Hours 05/17/25 05/18/25 05/19/25 23:59 23:59 23:59 Intake Total 5118.43 / 5118.43 2866.67 / 2866.67 3925 / 3925 Output Total 775 / 775 900 / 2500 3600 / 3600 Balance 4343.43 / 4343.43 1966.67 / 366.67 325 / 325 Lab / Micro Data 05/18/25 05:32 05/18/25 05:32 Labs: Laboratory Results - last 24 hr 05/18/25 11:14: POC Glucose 386 H 05/18/25 16:56: POC Glucose 386 H 05/18/25 21:43: POC Glucose 371 H 05/18/25 22:49: Vancomycin Trough 13.8 05/19/25 06:46: POC Glucose 218 H Micro: Microbiology 05/17/25 01:25 Blood Culture (Wb) - Arm Left Blood Culture - Final Enterobacter cloacae complex 05/16/25 18:00 Urine Catheter - Sky Urine Culture - Preliminary GNR lactose manager of learning 05/17/25 02:03 Blood Culture (Wb) - Arm Right Blood Culture - Preliminary GNR lactose manager of learning 05/17/25 12:23 Stool Clostridioides difficile (PCR) - Final 05/17/25 12:23 Stool Stool Occult Blood (PARTH) - Final Occult Blood Positive 05/16/25 23:25 Mucosa - Nasopharyngeal Respiratory Panel (PCR) - Final Rhinovirus 05/16/25 18:00 Urine Catheter - Sky Legionella Antigen - Final 05/16/25 18:00 Urine Catheter - Sky Streptococcus pneumoniae Antigen (M - Final 05/17/25 00:10 Nasal Secretion MRSA (PCR) - Final 05/16/25 14:17 Mucosa - Nose SARS-CoV-2, Influenza & RSV (PCR) - Final Social Homelessness:: Sheltered Physical Exam Const alert and no apparent distress HEENT head/scalp atraumatic and moist oral mucous membranes Resp normal respiratory effort, no retractions, no use of accessory muscles and clear to auscultation bilaterally Cardio regular rate, regular rhythm, S1 normal heart sound and S2 normal heart sound GI GI Narrative: TTP in lower abdomen w/o rebound. Neuro Sensorium / Orientation: awake Assessment & Plan Assessment/Plan (1) Septic shock: PLAN: Plan Acute Septic Shock * secondary to acute complicated urinary tract infection status post recent ureteral stent intervention at [facility] with edematous right renal transplant with moderately severe hydronephrosis despite presence of an intraureter draining stent possibly indicative of stent obstruction with a 9 cm fluid collection anterior and extraneous to the urinary bladder worrisome for urinoma complicated by recent pyelonephritis of the transplant kidney and bacteremia * Patient with evidence of sepsis-induced organ dysfunction/tissue hypoperfusion and sepsis induced hypotension despite adequate fluid administration as evidenced by MAP less than 65 despite significant aggressive hydration, hypotension, lactic acidosis, acute kidney injury with creatinine greater than 2), * Has not required pressors. BIRGIT Goddard, [facility] physician at [facility]. No need based on current HDS at this time. Then [facility] may choose to wait 24 hours before accepting the patient. Again spoke with the community sports coordinator and that is requested by the medical department for us to reinitiate the transfer 24 hours after the patient has been transferred to a general medical floor. * On stress-dose steroids with hydrocortisone. Will de-escalate to prednisone taper starting on the . * 05/18: BIRGIT [facility] main medicine quarterback, who agreed to accept patient to their service. Transfer line was unsure how soon patient could be transferred over. Still waiting on bed availablility today. * BCx Ucx w Enterobacter. UCx also with GPO, but low CFUs, so unlikely a true pathogen. * Continue pip/tazo. DC vancomycin Significant hyperglycemia with HHS * 2/2 to non-compliance type 2 Diabetic. Admission glucose 665. * Improved with insulin gtt. Will DC insulin gtt. * a1c 11.2. * continue glargine 35 BID. Coffee-ground emesis * Hg stable. * On IV PPI. Suspected Acute Viral Syndrome * 2/ 2 rhinovirus * supportive mgmt. ILDA on Hx ESRD * now s/p recent R renal transplant with CKD stage II per prior GFR trending secondary to likely shock, poor intake * Patient is awaiting tertiary facility transfer to [facility] however if there is prolonged transfer delay low threshold to involve nephrology if necessary. * Temporarily holding prednisone therapy as well as mycophenolate given infectious presentation as noted above with planned stress dose steroids, holding Bactrim given significant broad-spectrum antibiotic therapy concurrently as noted. Left ulnar neuropathy * suspected. no other neurologic deficits * monitor. Chronic medical conditions: * HFpEF: Most recent echocardiogram noted 04/16/2025 with EF 65 to 70%, stage I diastolic dysfunction, moderate concentric LVH, mild focal AV thickening, monitor for overload as patient was administered 4 L of fluids in the ED prior to initiation of norepinephrine therapy, will hold on continued aggressive fluids and be very judicious, not on statin therapy per current list, holding beta-elizabeth therapy, not on TOM/ARB likely secondary to renal disease, not on any diuretic per current list, continue baby aspirin. * Anxiety and depression: Clarifying as patient is listed on both escitalopram and fluoxetine in addition to bupropion, once clarified may continue with hold parameters/alteration in dosing as needed based on renal function. * Hypertension: Holding all hypertensive regimen given hypotensive presentation with septic shock as noted, add back once clinically appropriate. * Hyperlipidemia: Per current list on a regimen, defer to outpatient. * Chronic normocytic anemia/AOCD: Admission hemoglobin 11.8, MCV 92.6 however significantly dehydrated, baseline noted previously -, continue to closely trend. * LUANNE: Given recent bouts of nausea and emesis will temporally hold CPAP usage, supplemental oxygen will be continued nightly. DVT prophylaxis: Heparin. Full Code. Charges/Coding Visit Charges Inpatient E&M: 55391 Subs Hosp L2
[2025-05-19] MEDS: Heparin Injection (Vial) 5,000 UNIT/ML VIAL 5000 UNIT SC ×2 (09:19→22:43)
[2025-05-19] MEDS: Insulin Glargine-YFGN 100 UNIT/ML Pen 35 UNIT SC ×2 (09:22→22:44)
[2025-05-19] MEDS: Pantoprazole Sodium 40 MG in 0.9% Normal Saline (100mL MB+) 100 ML 300 MG IV ×2 (09:23→22:42)
[2025-05-20 04:00] VITALS: BP 151/78; PULSE 76; RESP 14; TEMP 36.8; O2SAT 98
[2025-05-20 04:10] VITALS: BMI 27.4
[2025-05-20] MEDS: 0.9% Normal Saline (1000mL) 1,000 ML 100 ML IV ×2 (05:05→16:43)
[2025-05-20] MEDS: Piperacil/Tazobactam 3.375 GM in 0.9% Normal Saline (50mL MB+) 50 ML IV ×3 (05:06→21:42)
--- NOTE | 2025-05-20 08:54 | PN.HOSP_ITS ---
Reason for Visit Chief Complaint: Elevated BS secondary to lack on insulin x 2 weeks, cough, N/V, 1 coffee ground emesis. Subjective Subjective Feeling better. Walked through the hallways and feeling is getting stronger. Objective Data Objective Data Vital Signs: Vital Signs Temp Pulse Resp BP Pulse Ox O2 Del Method O2 Flow Rate 36.8 C 76 14 151/78 H 98 Room Air 1 05/20/25 04:00 05/20/25 04:00 05/20/25 04:00 05/20/25 04:00 05/20/25 04:00 05/20/25 04:01 05/17/25 09:00 Oxygen Flow Rate (L/min) 1 Oxygen Delivery Method Room Air Weight: 82 kg Body Mass Index (BMI) 27.4 Intake & Output: Intake and Output for Last 24 Hours 05/18/25 05/19/25 05/20/25 23:59 23:59 23:59 Intake Total 2866.67 / 2866.67 6203.33 / 6203.33 1281.67 / 1281.67 Output Total 900 / 2500 5600 / 6400 3050 / 3050 Balance 1966.67 / 366.67 603.33 / -196.67 -1768.33 / -1768.33 Lab / Micro Data 05/18/25 05:32 05/18/25 05:32 Labs: Laboratory Results - last 24 hr 05/19/25 11:11: POC Glucose 205 H 05/19/25 16:46: POC Glucose 218 H 05/19/25 22:41: POC Glucose 342 H 05/20/25 06:34: POC Glucose 199 H Micro: Microbiology 05/17/25 02:03 Blood Culture (Wb) - Arm Right Blood Culture - Final GNR lactose school principal 05/16/25 18:00 Urine Catheter - Sky Urine Culture - Preliminary Enterobacter cloacae complex Gram positive organism 05/17/25 01:25 Blood Culture (Wb) - Arm Left Blood Culture - Final Enterobacter cloacae complex 05/17/25 12:23 Stool Clostridioides difficile (PCR) - Final 05/17/25 12:23 Stool Stool Occult Blood (PARTH) - Final Occult Blood Positive 05/16/25 23:25 Mucosa - Nasopharyngeal Respiratory Panel (PCR) - Final Rhinovirus 05/16/25 18:00 Urine Catheter - Sky Legionella Antigen - Final 05/16/25 18:00 Urine Catheter - Sky Streptococcus pneumoniae Antigen (M - Final 05/17/25 00:10 Nasal Secretion MRSA (PCR) - Final 05/16/25 14:17 Mucosa - Nose SARS-CoV-2, Influenza & RSV (PCR) - Final Social Homelessness:: Sheltered Physical Exam Const alert and no apparent distress HEENT head/scalp atraumatic and moist oral mucous membranes Resp normal respiratory effort, no retractions, no use of accessory muscles and clear to auscultation bilaterally Cardio regular rate, regular rhythm, S1 normal heart sound and S2 normal heart sound GI normal to inspection, nondistended, normoactive bowel sounds, soft to palpation, non-tender and non-distended Extremity normal to inspection Neuro Sensorium / Orientation: awake and alert Assessment & Plan Assessment/Plan (1) Septic shock: PLAN: Plan Acute Septic Shock * secondary to acute complicated urinary tract infection status post recent ureteral stent intervention at [facility] with edematous right renal transplant with moderately severe hydronephrosis despite presence of an intraureter draining stent possibly indicative of stent obstruction with a 9 cm fluid collection anterior and extraneous to the urinary bladder worrisome for urinoma complicated by recent pyelonephritis of the transplant kidney and bacteremia * Patient with evidence of sepsis-induced organ dysfunction/tissue hypoperfusion and sepsis induced hypotension despite adequate fluid administration as evidenced by MAP less than 65 despite significant aggressive hydration, hypotension, lactic acidosis, acute kidney injury with creatinine greater than 2), * Has not required pressors. BIRGIT Goddard, [facility] physician at [facility]. No need based on current HDS at this time. Then [facility] may choose to wait 24 hours before accepting the patient. Again spoke with the digital marketing coordinator and that is requested by the medical department for us to reinitiate the transfer 24 hours after the patient has been transferred to a general medical floor. * On stress-dose steroids with hydrocortisone. Will de-escalate to prednisone taper starting on the . * 05/18: BIRGIT [facility] main medicine quarterback, who agreed to accept patient to their service. Transfer line was unsure how soon patient could be transferred over. Still waiting on bed availability today. * BCx Ucx w Enterobacter. UCx also with GPO, but low CFUs, so unlikely a true pathogen. * Continue pip/tazo. DC vancomycin Significant hyperglycemia with HHS * 2/2 to non-compliance type 2 Diabetic. Admission glucose 665. * Improved with insulin gtt. Will DC insulin gtt. * a1c 11.2. * increase glargine 40 BID. Coffee-ground emesis * Hg stable. * On IV PPI. Suspected Acute Viral Syndrome * 2/ 2 rhinovirus * supportive mgmt. ILDA on Hx ESRD * now s/p recent R renal transplant with CKD stage II per prior GFR trending secondary to likely shock, poor intake * Patient is awaiting tertiary facility transfer to [facility] however if there is prolonged transfer delay low threshold to involve nephrology if necessary. * Temporarily holding prednisone therapy as well as mycophenolate given infectious presentation as noted above with planned stress dose steroids, holding Bactrim given significant broad-spectrum antibiotic therapy concurrently as noted. Left ulnar neuropathy * suspected. no other neurologic deficits * monitor. Chronic medical conditions: * HFpEF: Most recent echocardiogram noted 04/16/2025 with EF 65 to 70%, stage I diastolic dysfunction, moderate concentric LVH, mild focal AV thickening, monitor for overload as patient was administered 4 L of fluids in the ED prior to initiation of norepinephrine therapy, will hold on continued aggressive fluids and be very judicious, not on statin therapy per current list, holding beta-elizabeth therapy, not on TOM/ARB likely secondary to renal disease, not on any diuretic per current list, continue baby aspirin. * Anxiety and depression: Clarifying as patient is listed on both escitalopram and fluoxetine in addition to bupropion, once clarified may continue with hold parameters/alteration in dosing as needed based on renal function. * Hypertension: Holding all hypertensive regimen given hypotensive presentation with septic shock as noted, add back once clinically appropriate. * Hyperlipidemia: Per current list on a regimen, defer to outpatient. * Chronic normocytic anemia/AOCD: Admission hemoglobin 11.8, MCV 92.6 however significantly dehydrated, baseline noted previously 06-19, continue to closely trend. * LUANNE: Given recent bouts of nausea and emesis will temporally hold CPAP usage, supplemental oxygen will be continued nightly. DVT prophylaxis: Heparin. Discussed with patient's significant other at bedside. Charges/Coding Visit Charges Inpatient E&M: 07218 Subs Hosp L2 Reason for DC delay: Transfer delay to tertiary center (Patient has been accepted for transfer on the and still waiting on bed.)
[2025-05-20] MEDS: Pantoprazole Sodium 40 MG in 0.9% Normal Saline (100mL MB+) 100 ML 300 MG IV (09:39)
[2025-05-20] MEDS: Insulin Glargine-YFGN 100 UNIT/ML Pen 40 UNIT SC ×2 (09:43→21:41)
[2025-05-20] MEDS: Heparin Injection (Vial) 5,000 UNIT/ML VIAL 5000 UNIT SC ×2 (09:44→21:40)
[2025-05-20 09:48] VITALS: BP 130/87; PULSE 89; RESP 17; TEMP 36.4; O2SAT 100
--- NOTE | 2025-05-20 11:50 | NURSING ---
PCU paralegal secretary, Libertad, spoke with [facility] transfer center, who stated that bed availability is currently discharge dependent. But no beds are available at this time. Pati WORTHINGTON
[2025-05-20 16:00] VITALS: BP 154/90; PULSE 79; RESP 18; TEMP 36.6; O2SAT 97
[2025-05-20 19:00] VITALS: PULSE 77
[2025-05-20] MEDS: Pantoprazole Sodium 40 MG in 0.9% Normal Saline (100mL MB+) 100 ML 330 MG IV (21:41)
[2025-05-20 21:46] VITALS: BP 154/81; PULSE 80; RESP 14; TEMP 36.2; O2SAT 98
[2025-05-21 01:27] LABS: Vancomycin, Trough Level 9.0 ug/mL (5.0-15.0)
[2025-05-21] MEDS: 0.9% Normal Saline (1000mL) 1,000 ML 100 ML IV ×3 (03:10→23:15)
[2025-05-21 03:22] VITALS: BMI 27.6
[2025-05-21 03:55] VITALS: BP 159/90; PULSE 74; RESP 18; TEMP 36.2; O2SAT 97
[2025-05-21 05:50] LABS: Hematocrit 35.5 % (40-54); Hemoglobin 11.5 g/dL (13.0-16.5); Immature Granulocytes Count 0.060 X10^3/uL (0.0-0.0); Mean Corp Hgb Conc 32.4 g/dL (32-36); Mean Corpuscular Volume 88.1 fL (80-94); Mean Platelet Vol. 9.9 fl (6.2-12.0); NRBC Flagged by Analyzer 0 % (0-5); Platelet Count 243 K/mm3 (150-450); RBC Distribution Width CV 14.3 % (11.6-14.6); RBC Distribution Width SD 46.0 fl (35.1-43.9); Red Blood Count 4.03 M/mm3 (4.6-6.2); White Blood Count 7.5 K/mm3 (4.4-11.0)
[2025-05-21 06:25] LABS: Anion Gap 9 (5-15); BUN 27 mg/dL (4-19); BUN/Creat Ratio 17.0 RATIO (10-20); Calcium,Total 8.9 mg/dL (7.6-11.0); Carbon Dioxide 19.4 mmol/L (21.0-32.0); Chloride 112 mmol/L (98-108); Estimated Creatinine Clearance 54.36 ml/min (50-250); Glucose 134 mg/dL (70-99); Potassium 3.7 mmol/L (3.3-5.1)
[2025-05-21] MEDS: Piperacil/Tazobactam 3.375 GM in 0.9% Normal Saline (50mL MB+) 50 ML IV ×3 (06:34→23:16)
--- NOTE | 2025-05-21 08:45 | PN.HOSP_ITS ---
Reason for Visit Chief Complaint: Elevated BS secondary to lack on insulin x 2 weeks, cough, N/V, 1 coffee ground emesis. Subjective Subjective Feeling well. Eating. No new issues. Objective Data Objective Data Vital Signs: Vital Signs Temp Pulse Resp BP Pulse Ox O2 Del Method O2 Flow Rate 36.2 C L 74 18 159/90 H 97 Room Air 1 05/21/25 03:55 05/21/25 03:55 05/21/25 03:55 05/21/25 03:55 05/21/25 03:55 05/21/25 03:58 05/17/25 09:00 Oxygen Flow Rate (L/min) 1 Oxygen Delivery Method Room Air Weight: 82.6 kg Body Mass Index (BMI) 27.6 Intake & Output: Intake and Output for Last 24 Hours 05/19/25 05/20/25 05/21/25 23:59 23:59 23:59 Intake Total 6203.33 / 6203.33 3931.67 / 3931.67 1050 / 1050 Output Total 5600 / 6400 4475 / 4475 1550 / 1550 Balance 603.33 / -196.67 -543.33 / -543.33 -500 / -500 Lab / Micro Data 05/21/25 05:14 05/21/25 05:14 Labs: Laboratory Results - last 24 hr 05/20/25 11:45: POC Glucose 178 H 05/20/25 16:48: POC Glucose 196 H 05/20/25 21:40: POC Glucose 237 H 05/20/25 23:28: Vancomycin Trough 9.0 05/21/25 05:14: WBC 7.5, RBC 4.03 L, Hgb 11.5 L, Hct 35.5 L, MCV 88.1, MCH 28.5, MCHC 32.4, RDW Std Deviation 46.0 H, RDW Coeff of Tomy 14.3, Plt Count 243, MPV 9.9, Immature Gran % (Auto) 0.800, Neut % (Auto) 80.3 H, Lymph % (Auto) 11.5 L, Kemper % (Auto) 7.2, Eos % (Auto) 0.1, Baso % (Auto) 0.1, Absolute Neuts (auto) 6.0, Absolute Lymphs (auto) 0.86, Nucleated RBC % 0, Sodium 140, Potassium 3.7, Chloride 112 H, Carbon Dioxide 19.4 L, Anion Gap 9, BUN 27 H, Creatinine 1.59 H, Estim Creat Clear Calc 54.36, Est GFR (MDRD) Non-Af 51 L, BUN/Creatinine Ratio 17.0, Glucose 134 H, Calcium 8.9 05/21/25 06:31: POC Glucose 112 H Micro: Microbiology 05/16/25 18:00 Urine Catheter - Sky Urine Culture - Final Enterobacter cloacae complex Coag Negative Staph 05/17/25 02:03 Blood Culture (Wb) - Arm Right Blood Culture - Final GNR lactose field sales agent 05/17/25 01:25 Blood Culture (Wb) - Arm Left Blood Culture - Final Enterobacter cloacae complex 05/17/25 12:23 Stool Clostridioides difficile (PCR) - Final 05/17/25 12:23 Stool Stool Occult Blood (PARTH) - Final Occult Blood Positive 05/16/25 23:25 Mucosa - Nasopharyngeal Respiratory Panel (PCR) - Final Rhinovirus 05/16/25 18:00 Urine Catheter - Sky Legionella Antigen - Final 05/16/25 18:00 Urine Catheter - Sky Streptococcus pneumoniae Antigen (M - Final 05/17/25 00:10 Nasal Secretion MRSA (PCR) - Final 05/16/25 14:17 Mucosa - Nose SARS-CoV-2, Influenza & RSV (PCR) - Final Social Homelessness:: Sheltered Physical Exam Const alert and no apparent distress Constitutional Narrative: Up in bed, eating breakfast. Resp normal respiratory effort, no retractions, no use of accessory muscles and clear to auscultation bilaterally Cardio regular rate, regular rhythm, S1 normal heart sound and S2 normal heart sound GI normal to inspection, nondistended, normoactive bowel sounds, soft to palpation and non-tender Extremity normal to inspection and no clubbing, cyanosis or edema Neuro Sensorium / Orientation: awake and alert Assessment & Plan Assessment/Plan (1) Septic shock: PLAN: Plan Acute Septic Shock * Resolved * secondary to acute complicated urinary tract infection status post recent ureteral stent intervention at [facility] with edematous right renal transplant with moderately severe hydronephrosis despite presence of an intraureter draining stent possibly indicative of stent obstruction with a 9 cm fluid collection anterior and extraneous to the urinary bladder worrisome for urinoma complicated by recent pyelonephritis of the transplant kidney and bacteremia * Patient with evidence of sepsis-induced organ dysfunction/tissue hypoperfusion and sepsis induced hypotension despite adequate fluid administration as evidenced by MAP less than 65 despite significant aggressive hydration, hypotension, lactic acidosis, acute kidney injury with creatinine greater than 2), * Has not required pressors. BIRGIT Goddard, [facility] physician at [facility]. No need based on current HDS at this time. Then [facility] may choose to wait 24 hours before accepting the patient. Again spoke with the academic success coordinator and that is requested by the medical department for us to reinitiate the transfer 24 hours after the patient has been transferred to a general medical floor. * On stress-dose steroids with hydrocortisone. Will de-escalate to prednisone taper starting on the . Continue taper to home dose of 5mg/d * 05/18: BIRGIT [facility] main medicine quarterback, who agreed to accept patient to their service. Transfer line was unsure how soon patient could be transferred over. Still waiting on bed availability today. * BCx Ucx w Enterobacter. UCx also with GPO, but low CFUs, so unlikely a true pathogen. * Continue pip/tazo. * Given this questionable neuroma versus abscess, I feel this this needs to be further addressed by urology at a tertiary facility to see if that warrants further intervention. Given his complex history with a renal transplant, transplant medications, he is best suited at such a tertiary facility such as [facility] where he has been previously. Significant hyperglycemia with HHS * Improved * 2/2 to non-compliance type 2 Diabetic. Admission glucose 665. * a1c 11.2. * Continue glargine 40 BID. Coffee-ground emesis * Hg stable. * On IV PPI. Suspected Acute Viral Syndrome * 2/ 2 rhinovirus * supportive mgmt. ILDA on Hx ESRD * Improving now s/p recent R renal transplant with CKD stage II per prior GFR trending secondary to likely shock, poor intake * No need for renal replacement therapy at this time. Left ulnar neuropathy * suspected. no other neurologic deficits * monitor. Chronic medical conditions: * HFpEF: Most recent echocardiogram noted 04/16/2025 with EF 65 to 70%, stage I diastolic dysfunction, moderate concentric LVH, mild focal AV thickening, monitor for overload as patient was administered 4 L of fluids in the ED prior to initiation of norepinephrine therapy, will hold on continued aggressive fluids and be very judicious, not on statin therapy per current list, holding beta-elizabeth therapy, not on TOM/ARB likely secondary to renal disease, not on any diuretic per current list, continue baby aspirin. * Anxiety and depression: Clarifying as patient is listed on both escitalopram and fluoxetine in addition to bupropion, once clarified may continue with hold parameters/alteration in dosing as needed based on renal function. * Hypertension: Holding all hypertensive regimen given hypotensive presentation with septic shock as noted, add back once clinically appropriate. * Hyperlipidemia: Per current list on a regimen, defer to outpatient. * Chronic normocytic anemia/AOCD: Admission hemoglobin 11.8, MCV 92.6 however significantly dehydrated, baseline noted previously 10-, continue to closely trend. * LUANNE: Given recent bouts of nausea and emesis will temporally hold CPAP usage, supplemental oxygen will be continued nightly. * renal transplant: continue prednisone and mycophenolate. Patient on prednisone taper down to his baseline prednisone 5 mg daily. DVT prophylaxis: Heparin. Charges/Coding Visit Charges Inpatient E&M: 75802 Subs Hosp L2 Reason for DC delay: Transfer delay to tertiary center (Patient has been accepted for transfer on the seventh and still waiting on bed.)
[2025-05-21 10:01] VITALS: BP 156/81; PULSE 90; RESP 17; TEMP 36.4; O2SAT 97
[2025-05-21] MEDS: Insulin Glargine-YFGN 100 UNIT/ML Pen 40 UNIT SC ×2 (10:04→21:28)
[2025-05-21] MEDS: Heparin Injection (Vial) 5,000 UNIT/ML VIAL 5000 UNIT SC ×2 (10:05→21:13)
[2025-05-21] MEDS: Pantoprazole Sodium 40 MG in 0.9% Normal Saline (100mL MB+) 100 ML 300 MG IV ×2 (11:44→21:12)
--- NOTE | 2025-05-21 12:00 | CASEMGMT ---
Social Work SW spoke with the patient regarding the CUSTODIAL waiver referral made to [facility]. Patient reported they did call him. SW asked the patient to answer the phone when they call again. [facility] has called the patient and left messages. They were planning to close the referral. SARA Lemus
--- NOTE | 2025-05-21 13:14 | CASEMGMT ---
Social Work SW received an email from Kamilla Sands with [facility]. Kamilla spoke with patient, and sent the Assisted living referral as high priority. SARA Lemus
[2025-05-21 16:30] VITALS: BP 166/89; PULSE 84; RESP 18; TEMP 36.6; O2SAT 98
[2025-05-21 16:50] VITALS: PULSE 83
[2025-05-21] MEDS: 0.9% Saline Lock 10 ML Syringe IV (16:50)
[2025-05-21 21:00] VITALS: BP 135/78; PULSE 76; RESP 16; TEMP 36.3; O2SAT 98
[2025-05-22 03:00] VITALS: BP 150/85; PULSE 77; RESP 16; TEMP 36.6; O2SAT 96
[2025-05-22] MEDS: Piperacil/Tazobactam 3.375 GM in 0.9% Normal Saline (50mL MB+) 50 ML IV ×3 (04:38→21:49)
[2025-05-22 04:43] VITALS: BMI 29.4
--- NOTE | 2025-05-22 08:20 | NURSING ---
Called [facility] about status of bed for pt - no bed available
[2025-05-22 08:52] VITALS: BP 175/100; PULSE 89; RESP 16; TEMP 36.4; O2SAT 98
[2025-05-22] MEDS: Heparin Injection (Vial) 5,000 UNIT/ML VIAL 5000 UNIT SC ×2 (08:53→21:48)
[2025-05-22] MEDS: Insulin Glargine-YFGN 100 UNIT/ML Pen 40 UNIT SC ×2 (08:54→21:49)
[2025-05-22] MEDS: Pantoprazole Sodium 40 MG in 0.9% Normal Saline (100mL MB+) 100 ML 300 MG IV ×2 (08:55→21:50)
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
[2025-05-22] MEDS: 0.9% Normal Saline (1000mL) 1,000 ML 100 ML IV ×2 (09:37→18:33)
[2025-05-22 10:45] LABS: Hematocrit 34.4 % (40-54); Hemoglobin 11.4 g/dL (13.0-16.5); Immature Granulocytes Count 0.380 X10^3/uL (0.0-0.0); Mean Corp Hgb Conc 33.1 g/dL (32-36); Mean Corpuscular Volume 88.2 fL (80-94); Mean Platelet Vol. 9.7 fl (6.2-12.0); NRBC Flagged by Analyzer 0 % (0-5); Platelet Count 265 K/mm3 (150-450); RBC Distribution Width CV 14.6 % (11.6-14.6); RBC Distribution Width SD 46.9 fl (35.1-43.9); Red Blood Count 3.90 M/mm3 (4.6-6.2); White Blood Count 9.1 K/mm3 (4.4-11.0)
[2025-05-22 11:17] LABS: Anion Gap 10 (5-15); BUN 23 mg/dL (4-19); BUN/Creat Ratio 14.7 RATIO (10-20); Calcium,Total 8.5 mg/dL (7.6-11.0); Carbon Dioxide 19.4 mmol/L (21.0-32.0); Chloride 111 mmol/L (98-108); Estimated Creatinine Clearance 58.07 ml/min (50-250); Glucose 151 mg/dL (70-99); Potassium 4.0 mmol/L (3.3-5.1)
[2025-05-22 14:22] VITALS: TEMP 36.6
[2025-05-22 21:43] VITALS: BP 133/78; PULSE 91; RESP 18; TEMP 36.7; O2SAT 97
[2025-05-23 03:33] VITALS: BMI 29.9
[2025-05-23 03:45] VITALS: BP 156/86; PULSE 89; RESP 18; TEMP 36.4; O2SAT 97
[2025-05-23] MEDS: 0.9% Normal Saline (1000mL) 1,000 ML 100 ML IV (04:31)
[2025-05-23 06:32] LABS: Hematocrit 34.8 % (40-54); Hemoglobin 11.1 g/dL (13.0-16.5); Mean Corp Hgb Conc 31.9 g/dL (32-36); Mean Corpuscular Volume 89.7 fL (80-94); Mean Platelet Vol. 9.9 fl (6.2-12.0); POSITIVE COUNT YES; POSITIVE MORPHOLOGY YES; Platelet Count 287 K/mm3 (150-450); RBC Distribution Width CV 14.6 % (11.6-14.6); RBC Distribution Width SD 47.5 fl (35.1-43.9); Red Blood Count 3.88 M/mm3 (4.6-6.2); White Blood Count 8.8 K/mm3 (4.4-11.0)
[2025-05-23] MEDS: Piperacil/Tazobactam 3.375 GM in 0.9% Normal Saline (50mL MB+) 50 ML IV (06:32)
[2025-05-23] MEDS: 0.9% Saline Lock 10 ML Syringe IV (06:32)
[2025-05-23 06:35] LABS: Differential Indicated MANUAL DIFF
[2025-05-23 06:57] LABS: Anion Gap 10 (5-15); BUN 23 mg/dL (4-19); BUN/Creat Ratio 16.2 RATIO (10-20); Calcium,Total 8.5 mg/dL (7.6-11.0); Carbon Dioxide 20.2 mmol/L (21.0-32.0); Chloride 109 mmol/L (98-108); Estimated Creatinine Clearance 63.10 ml/min (50-250); Glucose 242 mg/dL (70-99); Potassium 3.7 mmol/L (3.3-5.1)
[2025-05-23 07:01] LABS: Neutrophil-Segmented 75 % (47-70); Total Cells Counted 100 (MANUAL DIFF)
[2025-05-23 07:03] LABS: Red Cell Morphology NORM C+C NORMAL (NORM C&C)
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
--- NOTE | 2025-05-23 07:59 | CT_ITS ---
PROCEDURE: ABDOMEN/PELVIS WITH CONTRAST 05/23/2025 REASON FOR EXAM: PYELONEPHRITIS. POSSIBLE URINOMA Renal failure. Renal transplant. TECHNIQUE: Procedure Code: [id number] Modality: CT Procedure: ABDOMEN/PELVIS WITH CONTRAST Coronal and Sagittal reconstruction series were provided. CONTRAST: Not provided. One or more dose reduction techniques were used (e.g., Automated exposure control, adjustment of the mA and/or kV according to patient size, use of iterative reconstruction technique. RADIATION DOSE SUMMARY: CTDlvol: 50 mGy DLP: 1838 mGycm COMPARISON: 16 May 2025. FINDINGS: Lung bases: Small bilateral pleural effusions. Mild dependent atelectasis. ABDOMEN Liver: Negative. Biliary system: Mildly prominent intrahepatic and extrahepatic ducts, stable. Gallbladder: Removed. Scratch Spleen: Negative. Pancreas: Negative. Adrenals: Negative. Kidneys: Atrophic and hyperdense bilateral [place] kidneys. No hydronephrosis of the [place] kidneys. Right pelvic transplant kidney. Right-sided double-J ureteral stent. Please note on the delayed images contrast material noted in the right renal pelvis but only minimal contrast is noted in the urinary bladder. There remains moderate right hydronephrosis. Bowel: Gastrointestinal adequately opacify with oral contrast. Mild increased stool in the colon. Negative for small or large-bowel obstruction. Appendix: The appendix is not identified. There is no inflammatory process identified in the right lower quadrant to suggest appendicitis. Vasculature: Negative for atherosclerotic vascular calcifications of the abdominal aorta and its branches. Peritoneum / Retroperitoneum: Negative. PELVIS Lymph nodes: Negative for inguinal or iliac adenopathy. Bladder: Mild urinary bladder wall thickening. Double-J ureteral stent as above. Reproductive Organs: Prostate calcifications. Bones and Soft Tissues: Age appropriate degenerative changes of the lumbar spine hips and pelvis. CT/Abdomen/Pelvis WITH Contrast IMPRESSION: Right renal transplant with poor opacification of the right-sided double-J uret eral stent and urinary bladder concerning for at least partial obstructed right-sided double-J ureteral stent. Reading Location: [id number]
--- NOTE | 2025-05-23 09:47 | NURSING ---
spoke with [facility] - per [facility] no beds at this time, pt is at the top of the list for a bed. Discharges do not look great for [facility] today.
[2025-05-23 11:00] VITALS: BP 126/71; PULSE 89; RESP 14; TEMP 36.6; O2SAT 96
[2025-05-23] MEDS: Insulin Glargine-YFGN 100 UNIT/ML Pen 40 UNIT SC (11:47)
[2025-05-23] MEDS: Heparin Injection (Vial) 5,000 UNIT/ML VIAL 5000 UNIT SC (11:49)
[2025-05-23] MEDS: Pantoprazole Sodium 40 MG in 0.9% Normal Saline (100mL MB+) 100 ML 300 MG IV (11:49)
--- NOTE | 2025-05-23 13:49 | DS.PCM_ITS ---
Providers Date of Admission: 05/16/25 Primary Care Physician: Dr. Zaida Mcneil MD Consultations 05/16/25 23:58 Consult: Production Stage Manager / Pulmonary Medicine Routine Consulting Provider: Intensivists/Pulmonary Med Reason for Consult: Septic shock, UTI, obstr renal stone, ILDA on CKD s/p renal txp, Esophagitis EMERGENT Consult: No MD Notified: Yes Date Notified: 05/16/25 Time Notified: 22:51 Method of Notification: Text Reason For Visit: SEPTIC SHOCK, UTI, POSS OBSTRUCT STENT, ILDA, Diagnosis Discharge Diagnosis (1) Septic shock: Status: Acute Code(s): A41.9 - Sepsis, unspecified organism; R65.21 - Severe sepsis with septic shock Plan Acute Septic Shock * Resolved * secondary to acute pyelonephritis in patient status post recent ureteral stent intervention at [facility] with edematous right renal transplant with moderately severe hydronephrosis despite presence of an intraureter draining stent possibly indicative of stent obstruction with a 9 cm fluid collection anterior and extraneous to the urinary bladder worrisome for urinoma complicated by recent pyelonephritis of the transplant kidney and bacteremia * Patient with evidence of sepsis-induced organ dysfunction/tissue hypoperfusion and sepsis induced hypotension despite adequate fluid administration as evidenced by MAP less than 65 despite significant aggressive hydration, hypotension, lactic acidosis, acute kidney injury with creatinine greater than 2), * Per H+P on 05/16: Currently urology has advised transfer to [facility] and they do not see male patients thus will defer urology consult as patient is awaiting tertiary facility transition * Has not required pressors. BIRGIT Goddard on 05/17, [facility] physician at [facility]. No need based on current HDS at this time. Then [facility] may choose to wait 24 hours before accepting the patient. Again spoke with the floor worker transfer bay and that is requested by the medical department for us to reinitiate the transfer 24 hours after the patient has been transferred to a general medical floor. * On stress-dose steroids with hydrocortisone. Will de-escalate to prednisone taper starting on the ninth. Continue taper to home dose of 5mg/d * 05/18: [facility] medicine quarterback, who agreed to accept patient to their service. Transfer line was unsure how soon patient could be transferred over. Still waiting on bed availability * BCx Ucx w Enterobacter. UCx also with GPO, but low CFUs, so unlikely a true pathogen. * Continue pip/tazo. * Given this questionable urinoma versus abscess, I feel this this needs to be further addressed by urology at a tertiary facility to see if that warrants further intervention. Given his complex history with a renal transplant, transplant medications, he is best suited at such a tertiary facility such as [facility] where he has been previously. * I repeated his abdominal CT today as patient has been here for several days awaiting on transfer. Repeat CAT scan did not show the urinoma but did show poor opacification of the right sided double-J ureteral stent and urinary bladder concerning for at least partial obstructed right sided double-J ureteral stent. * Will consult infectious disease for recommendations. It appears that only IV antibiotics are effective with this organism Significant hyperglycemia with HHS * Improved * 2/2 to non-compliance type 2 Diabetic. Admission glucose 665. * a1c 11.2. * Continue glargine 40 BID. Coffee-ground emesis * Hg stable. * On IV PPI. Suspected Acute Viral Syndrome * 2/ 2 rhinovirus * supportive mgmt. ILDA on Hx ESRD * Improving now s/p recent R renal transplant with CKD stage II per prior GFR trending secondary to likely shock, poor intake * No need for renal replacement therapy at this time. Left ulnar neuropathy * suspected. no other neurologic deficits * monitor. Chronic medical conditions: * HFpEF: Most recent echocardiogram noted 04/16/2025 with EF 65 to 70%, stage I diastolic dysfunction, moderate concentric LVH, mild focal AV thickening, monitor for overload as patient was administered 4 L of fluids in the ED prior to initiation of norepinephrine therapy, will hold on continued aggressive fluids and be very judicious, not on statin therapy per current list, holding beta-elizabeth therapy, not on TOM/ARB likely secondary to renal disease, not on any diuretic per current list, continue baby aspirin. * Anxiety and depression: Clarifying as patient is listed on both escitalopram and fluoxetine in addition to bupropion, once clarified may continue with hold parameters/alteration in dosing as needed based on renal function. * Hypertension: Holding all hypertensive regimen given hypotensive presentation with septic shock as noted, add back once clinically appropriate. * Hyperlipidemia: Per current list on a regimen, defer to outpatient. * Chronic normocytic anemia/AOCD: Admission hemoglobin 11.8, MCV 92.6 however significantly dehydrated, baseline noted previously 10-11, continue to closely trend. * LUANNE: Given recent bouts of nausea and emesis will temporally hold CPAP usage, supplemental oxygen will be continued nightly. * renal transplant: continue prednisone and mycophenolate. Patient on prednisone taper down to his baseline prednisone 5 mg daily. DVT prophylaxis: Heparin. Medications at Discharge Home Medications prednisone 5 mg tablet 5 mg PO DAILY steroid 09/18/21 fluoxetine 10 mg capsule 10 mg PO DAILY 03/24/24 insulin lispro protamine-lispro 100 unit/mL (50-50) subcutaneous pen (Humalog Mix 50-50 KwikPen) See Rx Instructions subcut .tid with meals #42 mL 03/30/24 mycophenolate sodium 180 mg tablet,delayed release 360 mg PO BID kidneys 01/26/25 sulfamethoxazole 400 mg-trimethoprim 80 mg tablet 1 tab PO MOWEFR 01/26/25 carvedilol 12.5 mg tablet 12.5 mg PO BID 03/10/25 escitalopram oxalate 10 mg tablet 10 mg PO DAILY 03/10/25 aspirin 81 mg chewable tablet 1 tab PO DAILY 04/14/25 bupropion HCl 150 mg 24 hr tablet, extended release 150 mg PO DAILY 04/14/25 gabapentin 100 mg capsule 100 mg PO QHS 04/14/25 Hospital Course Operations None Procedures None Summary of Care Provided Hospital Course: Greater than 30-minute spent on discharge. This is a 54-year-old male with history of renal transplant presents with elevated blood sugar, cough nausea and vomiting coffee-ground emesis. Patient was admitted with septic shock secondary to pyelonephritis. There is questionable E urinoma noted on his CAT scan. Urology was contacted directly from the emergency room and recommended transfer to a tertiary facility. Patient was accepted at [facility] and patient was started on broad-spectrum antibiotics. Patient was initiated on pip-tazo for antibiotics. Patient was noted to be bacteremic. This was due to the urinary source with Enterobacter that was sensitive only to IV antibiotics. Patient had ILDA upon arrival and Sky catheter was placed in the ED. ILDA did improve. Sky catheter was removed on the without difficulty and patient has been urinating fine since then. But given the long time before patient can be transferred, I ordered a CT scan to see about the urinoma if it was still present. CAT scan did not show the urinoma but appeared to be a obstruction in his renal transplant stent or near obstruction. Finally we got bed availability today and patient will be transferred to [facility] in stable condition. Medical Records Data Homelessness:: Sheltered Weight / BMI Weight Weight: 89.4 kg Body Mass Index (BMI) 29.9 ABG / Lab / Microbiology Data 05/23/25 05:43 05/23/25 05:43 Laboratory: Laboratory Results - last 24 hr 05/22/25 16:58: POC Glucose 216 H 05/22/25 21:46: POC Glucose 426 H 05/23/25 05:43: WBC 8.8, RBC 3.88 L, Hgb 11.1 L, Hct 34.8 L, MCV 89.7, MCH 28.6, MCHC 31.9 L, RDW Std Deviation 47.5 H, RDW Coeff of Tomy 14.6, Plt Count 287, MPV 9.9, Neut % (Auto) Not Reportable, Absolute Neuts (auto) 6.6, Absolute Lymphs (auto) 1.76, Total Counted 100, Neutrophils % (Manual) 75 H, Lymphocytes % (Manual) 20, Monocytes % (Manual) 2, Metamyelocytes % 2 H, Myelocytes % 1 H, Diff Path Review May foll, Platelet Estimate ADEQUATE, RBC Morphology NORM C+C, Sodium 140, Potassium 3.7, Chloride 109 H, Carbon Dioxide 20.2 L, Anion Gap 10, BUN 23 H, Creatinine 1.42 H, Estim Creat Clear Calc 63.10, Est GFR (MDRD) Non-Af 58 L, BUN/Creatinine Ratio 16.2, Glucose 242 H, Calcium 8.5 05/23/25 06:21: POC Glucose 211 H 05/23/25 11:44: POC Glucose 156 H Microbiology: Microbiology 05/16/25 18:00 Urine Catheter - Sky Urine Culture - Final Enterobacter cloacae complex Coag Negative Staph 05/17/25 02:03 Blood Culture (Wb) - Arm Right Blood Culture - Final GNR lactose health information administrator 05/17/25 01:25 Blood Culture (Wb) - Arm Left Blood Culture - Final Enterobacter cloacae complex 05/17/25 12:23 Stool Clostridioides difficile (PCR) - Final 05/17/25 12:23 Stool Stool Occult Blood (PARTH) - Final Occult Blood Positive 05/16/25 23:25 Mucosa - Nasopharyngeal Respiratory Panel (PCR) - Final Rhinovirus 05/16/25 18:00 Urine Catheter - Sky Legionella Antigen - Final 05/16/25 18:00 Urine Catheter - Sky Streptococcus pneumoniae Antigen (M - Final 05/17/25 00:10 Nasal Secretion MRSA (PCR) - Final 05/16/25 14:17 Mucosa - Nose SARS-CoV-2, Influenza & RSV (PCR) - Final Radiography Diagnostic Testing: Radiology Impression Abdomen/Pelvis CT 05/23/25 07:59 IMPRESSION: Right renal transplant with poor opacification of the right-sided double-J ureteral stent and urinary bladder concerning for at least partial obstructed right-sided double-J ureteral stent. Reading Location: [id number] D/C Instructions DC O2, CPAP, BIPAP Needs Home O2 Discharge instructions: No Meaningful Use Info Meaningful Use Meaningful Use Diagnoses (Choose all that apply): None applicable Discharge Plan Admission Admit Date/Time: 05/16/25 22:43 Primary Reason for Your Visit: Septic shock Attending Provider: Byron Cui Primary Care Provider: Zaida Mcneil Consulting Providers: Isamar Smith; Pierre Barraza; Jim Ramirez; Kyrie Garsia; Joao Hayes; Umair Gillespie; Chandra Velez; Dom Jimenez; Deloris Mcdonald; Hussein Chisholm; Jeff Schulte; Buddy Pro; Kristine Rojas; Sam Ruiz; Janna Elias; Susana,Koffi; Erwin Franco; Manjit Witt; Joao Ambrosio; Narayan Cardozo; Donato Farley; Dale Schneider; Gene Wang; Shell Ramires; Rito Weiss Discharge Orders/Prescriptions Prescriptions: No Action fluoxetine 10 mg capsule 10 mg PO DAILY prednisone 5 mg Tablet 5 mg PO DAILY sulfamethoxazole-trimethoprim 400-80 mg tablet 1 tab PO MOWEFR mycophenolate sodium 180 mg tablet,delayed release (DR/EC) 360 mg PO BID carvedilol 12.5 mg tablet 12.5 mg PO BID escitalopram oxalate 10 mg tablet 10 mg PO DAILY aspirin 81 mg tablet,chewable 1 tab PO DAILY gabapentin 100 mg capsule 100 mg PO QHS bupropion HCl 150 mg tablet extended release 24 hr 150 mg PO DAILY Humalog Mix 50-50 KwikPen 100 unit/mL (50-50) insulin pen See Rx Instructions subcut .tid with meals Qty: 42 5RF Rx Instructions: 40-40-60 units subcutaneously TID WITH MEALS; Referrals / Follow Up: Zaida Mcneil MD [Primary Care Provider] - Disposition Disposition (needs filled in before D/C Order can be placed): Acute Care Hospital Charges/Coding Visit Charges Inpatient E&M: 71126 Disch Hosp >30min
== END 2025-05-23 15:23 | disposition short-term general hospital (02) | DRG 871 ==
LOC: ED 20:41 → ICU 23:17 → PCU 05-17 15:26
PROVIDERS: Admitting Provider Family Medicine; Emergency Provider Student in an Organized Health Care Education/Training Program; PCP Internal Medicine
DX: A41.59 Other Gram-negative sepsis (principal); R65.21 Severe sepsis with septic shock; N18.6 End stage renal disease; I13.2 Hypertensive heart and chronic kidney disease with heart failure and with stage 5 chronic kidney disease, or end stage renal disease; T86.19 Other complication of kidney transplant; E87.0 Hyperosmolality and hypernatremia; K92.2 Gastrointestinal hemorrhage, unspecified; N17.9 Acute kidney failure, unspecified; I50.30 Unspecified diastolic (congestive) heart failure; Z94.0 Kidney transplant status; N10 Acute pyelonephritis; N13.30 Unspecified hydronephrosis; E11.22 Type 2 diabetes mellitus with diabetic chronic kidney disease; D64.9 Anemia, unspecified; F32.A Depression, unspecified; I48.91 Unspecified atrial fibrillation; E11.65 Type 2 diabetes mellitus with hyperglycemia; E11.42 Type 2 diabetes mellitus with diabetic polyneuropathy; E78.5 Hyperlipidemia, unspecified; K21.00 Gastro-esophageal reflux disease with esophagitis, without bleeding; I25.10 Atherosclerotic heart disease of native coronary artery without angina pectoris; Z79.4 Long term (current) use of insulin; G47.33 Obstructive sleep apnea (adult) (pediatric); G56.22 Lesion of ulnar nerve, left upper limb; I25.2 Old myocardial infarction; F41.9 Anxiety disorder, unspecified; Z91.148 Patient's other noncompliance with medication regimen for other reason; Z87.891 Personal history of nicotine dependence; Z99.89 Dependence on other enabling machines and devices; Z79.899 Other long term (current) drug therapy; Z79.82 Long term (current) use of aspirin; Z90.49 Acquired absence of other specified parts of digestive tract; B97.89 Other viral agents as the cause of diseases classified elsewhere
CPT/HCPCS: 36415; 51702; 71046; 74176; 74177; 80048; 80051; 80053; 80202; 81001; 82010; 82274; 82570; 82803; 82947; 82962; 83036; 83605; 83690; 83735; 83930; 84100; 84300; 85014; 85018; 85025; 87040; 87077; 87086; 87088; 87186; 87449; 87493; 87631; 87633; 87641; 93005; 97110; 97116; 97162; 97166; 97530; 97533; 97535; 97803; 99285; Q9967; A4216; J2405